=== PATIENT | female | born 1955 | race Caucasian/White ===

== ENCOUNTER → 2016-09-15 | Outpatient (CLI) | payer OTHER ==
[~2016-09-15] MED LIST: ASP325TEC PO; ASP81TEC PO; CETI10TA17 PO; ENAL20TA PO; FERR325T17 PO; GLIM2TAB PO; GLUC-113 PO; LEVO175T3 PO; LVT.025T PO; LVT.15T PO; MELO-195 PO; METO-272 PO; MTF500T PO; NITR0.4T12 SL; NTR.4SL SL; OMEP-10 PO; PRAS10TA6 PO; PRAV40TA PO; SIMV40TA2 PO; TIZA4TAB55 PO; TRAM50TA2 PO
[2016-09-15 15:32] LABS: CHOLESTEROL 226 MG/DL (< 200); DIRECT LDL 149 MG/DL (1-129); TRIGLYCERIDES 148 MG/DL (<150); VLDL CHOLESTEROL 30 MG/DL (5-40)
== END ==
LOC: LAB 12:15
PROVIDERS: ATTEND Internal Medicine Nephrology
DX: I25.10 Atherosclerotic heart disease of native coronary artery without angina pectoris (principal)
CPT/HCPCS: 36415; 80061

== ENCOUNTER 2016-10-10 08:46 | Outpatient (RCR) | payer OTHER | END 2016-12-16 | disposition home or self-care (01) | LOC: CARD 08:46 | PROVIDERS: ATTEND Internal Medicine Interventional Cardiology | DX: I48.91 Unspecified atrial fibrillation (principal); I47.1 Supraventricular tachycardia | CPT/HCPCS: 93270 ==

== ENCOUNTER 2016-10-24 08:37 | Outpatient (RCR) | payer OTHER ==
[2016-08-05 13:04] LABS: BASOPHILS % (AUTO) 1 % (0-10); EOSINOPHILS # (AUTO) 0.2 10^3/uL (0.0-0.3); EOSINOPHILS % (AUTO) 3 % (0-10); LYMPHOCYTES # (AUTO) 1.9 X 10^3 (1.0-4.0); LYMPHOCYTES % (AUTO) 38 % (12-44); MEAN CORPUSCULAR HEMOGLOBIN 26 PG (25-34); MEAN CORPUSCULAR HGB CONC 31 G/DL (32-36); MEAN CORPUSCULAR VOLUME 84 FL (80-99); MEAN PLATELET VOLUME 10.1 FL (7.4-10.4); MONOCYTES # (AUTO) 0.5 X 10^3 (0.0-1.0); MONOCYTES % (AUTO) 9 % (0-12); NEUTROPHILS # (AUTO) 2.5 X 10^3 (1.8-7.8); NEUTROPHILS % (AUTO) 49 % (42-75); PLATELET COUNT 182 10^3/uL (130-400); RED BLOOD COUNT 2.63 10^6/uL (4.35-5.85); RED CELL DISTRIBUTION WIDTH 14.4 % (10.0-14.5); WHITE BLOOD COUNT 5.1 10^3/uL (4.3-11.0)
--- OUTSIDE RECORDS SUMMARY | 2016-08-05 13:37 | XMS REPORT | Continuity of Care Document ---
Author Author [facility] Organization [facility] Address Unknown Phone Unavailable Care Team Providers Care Boiler Tube Reamer Name Role Phone WU DIOR MD PCP Insurance Providers Payer Name Policy Number Subscriber Name Relationship [facility] [id number] Deborah Fields 20 Self / Same As Patient Advance Directives Directive Response Recorded Date/Time Advance Directives No 03/24/14 7:15am Health Care Power of Physical Therapy Instructor No 03/24/14 7:15am Organ Donor Yes 03/24/14 7:15am Problems No problem information available. Medications Current Home Medications Medication Dose Units Route Directions Days/Qty Instructions Start Date Metformin Hcl (Glucophage) 500 Mg 1,000 Mg Oral Twice A Day With Meals TAKE 2 (500MG) TABLETS - DO NOT TAKE METFORMIN UNTIL THE MORNING OF 03-05-1412/22 Tramadol Hcl 50 Mg 50 Mg Oral Four Times Daily as needed for Pain Omeprazole 20 Mg 20 Mg Oral Daily@07 05/22/10 Nitroglycerin 0.4 Mg 0 Sublingual As Needed as needed for Chest Pain 1 TAB Q 5 MIN X 3 03/02/14 Metoprolol Succinate (Toprol Xl) 50 Mg 50 Mg Oral Twice A Day Ferrous Gluconate 325 Mg 325 Mg Oral Daily 03/02/14 Gluc 2KCL/Chondr/Caty Hy/Hy Ac 1 Each 1 Cap Oral Twice A Day Tizanidine Hcl 4 Mg 4 Mg Oral Bedtime 03/02/14 Glimepiride 2 Mg 2 Mg Oral Twice A Day 03/02/14 Levothyroxine Sodium 175 Mcg 175 Mcg Oral Daily TAKE WITH 25 DFY=490 MCG 03/02/14 Levothyroxine Sodium (Levothroid) 25 Mcg 25 Mcg Oral Daily TAKE WITH 175 TWL=353 MCG 03/02/14 Cetirizine Hcl (Zyrtec) 10 Mg 10 Mg Oral Daily 03/02/14 Past Home Medications Medication Directions Ordered Status Levothyroxine Sodium (Levothroid) 150 Mcg Tablet, 1 Each Oral Daily 05/21/10 Discontinued Meloxicam (Mobic) 15 Mg Tablet, 15 Mg Oral Daily 05/21/10 Discontinued Enalapril Maleate 20 Mg Tablet, 20 Mg Oral Daily 05/21/10 Discontinued Aspirin 325 Mg Tabec, 325 Mg Oral Daily 05/22/10 Discontinued Nitroglycerin 0.4 Mg Tab.subl, 0.4 Mg Sublingual As Needed 05/22/10 Discontinued Prasugrel Hydrochloride 10 Mg Tablet, 10 Mg Oral Daily 05/22/10 Discontinued Simvastatin 40 Mg Tablet, 80 Mg Oral Bedtime 05/22/10 Discontinued Aspirin 81 Mg Tabec, 81 Mg Oral Daily 03/02/14 Discontinued Pravastatin Sodium 40 Mg Tablet, 40 Mg Oral Daily 03/02/14 Discontinued Social History Social History Problem Response Recorded Date/Time Recent Foreign Travel N [place] 10/09/2015 4:28pm Hospital Discharge Instructions No hospital discharge instructions. Plan of Care Prescriptions See Medication Section Functional Status No functional status results. Allergies, Adverse Reactions, Alerts Allergen Type Severity Reaction Status Last Updated methotrexate ([id number]) Allergy Unknown Active 03/24/14 cefadroxil ([id number]) Allergy Mild Active 03/24/14 Immunizations No immunization records. Vital Signs No known vital signs results. Results Laboratory Results Test Name Result Units Flags Reference Collection Date/Time Result Date/ Time Comments White Blood Count 7.2 10^3/uL 4.3-11.0 11/27/2015 3:36pm 11/27/2015 3: 40pm Red Blood Count 3.49 10^6/uL L 4.35-5.85 11/27/2015 3:36pm 11/27/2015 3: 40pm Hemoglobin 10.0 G/DL L 11.5-16.0 11/27/2015 3:36pm 11/27/2015 3:40pm Hematocrit 31 % L 35-52 11/27/2015 3:36pm 11/27/2015 3:40pm Mean Corpuscular Volume 89 FL 80-99 11/27/2015 3:36pm 11/27/2015 3: 40pm Mean Corpuscular Hemoglobin 29 PG 25-34 11/27/2015 3:36pm 11/27/2015 3: 40pm Mean Corpuscular Hemoglobin Concent 32 G/DL 32-36 11/27/2015 3:36pm 3:40pm Red Cell Distribution Width 14.6 % H 10.0-14.5 11/27/2015 3:36pm 2015 3:40pm Platelet Count 195 10^3/uL 130-400 11/27/2015 3:36pm 11/27/2015 3:40pm Mean Platelet Volume 9.7 FL 7.4-10.4 11/27/2015 3:36pm 11/27/2015 3: 40pm Neutrophils (%) (Auto) 63 % 42-75 11/27/2015 3:36pm 11/27/2015 3:40pm Lymphocytes (%) (Auto) 24 % 12-44 11/27/2015 3:36pm 11/27/2015 3:40pm Monocytes (%) (Auto) 7 % 0-12 11/27/2015 3:36pm 11/27/2015 3:40pm Eosinophils (%) (Auto) 6 % 0-10 11/27/2015 3:36pm 11/27/2015 3:40pm Basophils (%) (Auto) 0 % 0-10 11/27/2015 3:36pm 11/27/2015 3:40pm Neutrophils # (Auto) 4.5 X 10^3 1.8-7.8 11/27/2015 3:36pm 11/27/2015 3: 40pm Lymphocytes # (Auto) 1.8 X 10^3 1.0-4.0 11/27/2015 3:36pm 11/27/2015 3: 40pm Monocytes # (Auto) 0.5 X 10^3 0.0-1.0 11/27/2015 3:36pm 11/27/2015 3: 40pm Eosinophils # (Auto) 0.4 10^3/uL H 0.0-0.3 11/27/2015 3:36pm 11/27/2015 3 :40pm Basophils # (Auto) 0.0 10^3/uL 0.0-0.1 11/27/2015 3:36pm 11/27/2015 3: 40pm Ferritin 157 ng/mL H 15-150 11/27/2015 3:36pm 11/28/2015 8:35am Test performed at [facility], CLIA# [id number] Procedures No known history of procedures. Encounters Encounter Location Arrival/Admit Date Discharge/Depart Date Attending Provider Discharged Recurring [facility] 11/27/15 3:28pm 11:59pm SHIREEN AGARWAL
[2016-08-05 13:46] LABS: ALBUMIN 3.5 G/DL (3.2-4.5); BILIRUBIN,TOTAL 0.4 MG/DL (0.1-1.0); CALCIUM 8.4 MG/DL (8.5-10.1); CREATININE SERUM 1.08 MG/DL (0.60-1.30); POTASSIUM 4.5 MMOL/L (3.6-5.0); TOTAL PROTEIN 6.8 G/DL (6.4-8.2)
[2016-08-05 14:26] LABS: THYROID STIMULATING HORMONE 1.66 UIU/ML (0.35-4.94)
[2016-09-15 10:36] LABS: BASOPHILS % (AUTO) 1 % (0-10); EOSINOPHILS # (AUTO) 0.5 10^3/uL (0.0-0.3); EOSINOPHILS % (AUTO) 9 % (0-10); LYMPHOCYTES # (AUTO) 1.8 X 10^3 (1.0-4.0); LYMPHOCYTES % (AUTO) 32 % (12-44); MEAN CORPUSCULAR HEMOGLOBIN 30 PG (25-34); MEAN CORPUSCULAR HGB CONC 33 G/DL (32-36); MEAN CORPUSCULAR VOLUME 90 FL (80-99); MEAN PLATELET VOLUME 9.4 FL (7.4-10.4); MONOCYTES # (AUTO) 0.6 X 10^3 (0.0-1.0); MONOCYTES % (AUTO) 10 % (0-12); NEUTROPHILS # (AUTO) 2.8 X 10^3 (1.8-7.8); NEUTROPHILS % (AUTO) 49 % (42-75); PLATELET COUNT 172 10^3/uL (130-400); RED BLOOD COUNT 3.28 10^6/uL (4.35-5.85); RED CELL DISTRIBUTION WIDTH 17.6 % (10.0-14.5); WHITE BLOOD COUNT 5.8 10^3/uL (4.3-11.0)
[~2016-10-24 08:37] MED LIST changes: +FERRIC CARBOXYMALTOSE (CANCER) 750 MG in NS (IVPB) CANCER CENTER 250 ML IV NR; +FERRIC CARBOXYMALTOSE (CANCER) 750 MG in NS (IVPB) CANCER CENTER 250 ML IV SCH; +NS (IVPB) CANCER CENTER 250 ML ONE; +NS IV 500 ML (CANCER CENTER) 500 ML ONE
[2016-10-24 08:57] LABS: BASOPHILS % (AUTO) 0 % (0-10); EOSINOPHILS # (AUTO) 0.6 10^3/uL (0.0-0.3); EOSINOPHILS % (AUTO) 9 % (0-10); LYMPHOCYTES # (AUTO) 1.8 X 10^3 (1.0-4.0); LYMPHOCYTES % (AUTO) 26 % (12-44); MEAN CORPUSCULAR HEMOGLOBIN 30 PG (25-34); MEAN CORPUSCULAR HGB CONC 34 G/DL (32-36); MEAN CORPUSCULAR VOLUME 90 FL (80-99); MONOCYTES # (AUTO) 0.6 X 10^3 (0.0-1.0); MONOCYTES % (AUTO) 8 % (0-12); NEUTROPHILS # (AUTO) 3.7 X 10^3 (1.8-7.8); NEUTROPHILS % (AUTO) 56 % (42-75); PLATELET COUNT 174 10^3/uL (130-400); RED BLOOD COUNT 3.41 10^6/uL (4.35-5.85); RED CELL DISTRIBUTION WIDTH 13.7 % (10.0-14.5); WHITE BLOOD COUNT 6.7 10^3/uL (4.3-11.0)
== END 2016-11-03 | disposition home or self-care (01) ==
LOC: ONC 08:37
PROVIDERS: ATTEND Internal Medicine Hematology & Oncology
DX: D50.9 Iron deficiency anemia, unspecified (principal); I25.10 Atherosclerotic heart disease of native coronary artery without angina pectoris; E03.9 Hypothyroidism, unspecified; I12.9 Hypertensive chronic kidney disease with stage 1 through stage 4 chronic kidney disease, or unspecified chronic kidney disease; N18.3 Chronic kidney disease, stage 3 (moderate); E11.22 Type 2 diabetes mellitus with diabetic chronic kidney disease; I48.91 Unspecified atrial fibrillation; Z79.899 Other long term (current) drug therapy
CPT/HCPCS: 36415; 36430; 80053; 82728; 84443; 85025; 86850; 86900; 86901; 86920; 96365; 99213

== ENCOUNTER → 2016-10-24 | Outpatient (CLI) | payer OTHER ==
[2016-10-24 09:27] LABS: CHOLESTEROL 214 MG/DL (< 200); DIRECT LDL 129 MG/DL (1-129); TRIGLYCERIDES 173 MG/DL (<150); VLDL CHOLESTEROL 35 MG/DL (5-40)
== END ==
LOC: LAB 08:41
PROVIDERS: ATTEND Internal Medicine Nephrology
DX: I25.10 Atherosclerotic heart disease of native coronary artery without angina pectoris (principal)
CPT/HCPCS: 36415; 80061

== ENCOUNTER 2016-12-31 11:10 | Outpatient (CLI) | payer OTHER ==
[~2016-12-31 11:10] MED LIST changes: -APIX5TAB PO; -EVOL140S SQ; -EZET10TA5 PO; -LEVO150T6 PO; -METO-274 PO; -PANT40TA2 PO; -SUCR1TAB36 PO
[2016-12-31 11:27] LABS: MEAN PLATELET VOLUME 9.3 FL (7.4-10.4); RED BLOOD COUNT 2.67 10^6/uL (4.35-5.85); WHITE BLOOD COUNT 5.7 10^3/uL (4.3-11.0)
[2017-01-01] MEDS ORDERED: APIX5TAB PO (09:55)
[2017-01-01] MEDS ORDERED: METO-274 PO (09:55)
[2017-01-01] MEDS ORDERED: EVOL140S SQ (09:55)
[2017-01-01] MEDS ORDERED: EZET10TA5 PO (09:55)
[2017-01-01] MEDS ORDERED: LEVO150T6 PO (09:55)
[2017-01-02] MEDS ORDERED: SUCR1TAB36 PO (08:19)
[2017-01-02] MEDS ORDERED: PANT40TA2 PO (08:19)
== END 2017-01-01 10:01 ==
LOC: LAB 11:10
PROVIDERS: ATTEND Nurse Practitioner
DX: D64.9 Anemia, unspecified (principal)
CPT/HCPCS: 36415; 85027

== ENCOUNTER → 2016-12-31 | Outpatient (CLI) | payer OTHER ==
[~2016-12-31] VITALS: Ht 162.6 cm; Wt 123.4 kg
[~2016-12-31] MED LIST changes: +APIX5TAB PO; +EVOL140S SQ; +EZET10TA5 PO; -FERRIC CARBOXYMALTOSE (CANCER) 750 MG in NS (IVPB) CANCER CENTER 250 ML IV NR; -FERRIC CARBOXYMALTOSE (CANCER) 750 MG in NS (IVPB) CANCER CENTER 250 ML IV SCH; +LEVO150T6 PO; +METO-274 PO; -NS (IVPB) CANCER CENTER 250 ML ONE; -NS IV 500 ML (CANCER CENTER) 500 ML ONE; +PANT40TA2 PO; +SUCR1TAB36 PO
== END ==
LOC: PREOP 12:53
PROVIDERS: ATTEND Surgery
DX: Z01.818 Encounter for other preprocedural examination (principal); R19.5 Other fecal abnormalities; D50.9 Iron deficiency anemia, unspecified; Z80.0 Family history of malignant neoplasm of digestive organs

== ENCOUNTER 2017-01-02 06:29 | Day surgery (SDC) | payer OTHER ==
[~2017-01-02] VITALS: Ht 162.6 cm; Wt 123.4 kg
[~2017-01-02 06:29] MED LIST changes: +APIX5TAB PO; +EVOL140S SQ; +EZET10TA5 PO; +LEVO150T6 PO; +METO-274 PO
[2017-01-02] MEDS ORDERED: LACTATED RINGERS 1,000 ML IV STA (06:43)
[2017-01-02] MEDS ORDERED: HURRICAINE EXT TUBE (BENZOCAINE) XX PRN (06:45)
[2017-01-02 07:08] VITALS: BP 147/72
[2017-01-02] MEDS ORDERED: PROPOFOL INJECTION 50 ML IV ONE (07:19)
[2017-01-02] MEDS ORDERED: MIDAZOLAM 2 MG/2 ML (VERSED) VIAL ONE (07:20)
--- NOTE | 2017-01-02 07:22 | Progress Note-Pre Operative ---
Pre-Operative Progress Note H&P Reviewed The H&P was reviewed, patient examined and no changes noted. Date Seen by Provider: Jan 02, 2017 Time Seen by Provider: : Date H&P Reviewed: Jan 02, 2017 Time H&P Reviewed: : Pre-Operative Diagnosis: occult + stool, iron def anemia, family history colon cancer SABRINA ROSSI DO Jan 02, 2017 7:21 am
[2017-01-02 08:00] VITALS: BP 157/73
--- NOTE | 2017-01-02 08:15 | Progress Note-Post Operative ---
Post-Operative Progess Note Surgeon (s)/Loom Fixer Supervisor (s) Surgeon SABRINA ROSSI DO Loom Fixer Supervisor: na Pre-Operative Diagnosis occult + stool, iron def anemia, family history colon cancer Post-Operative Diagnosis gastritis, hiatal hernia, hemorrhoids Procedure & Operative Findings Date of Procedure 01/02/17 Procedure Performed/Findings egd c biopsy and colonoscopy Anesthesia Type per escalator attendant Estimated Blood Loss Estimated blood loss (mL): none Specimens/Packing Specimens Removed antrum SABRINA ROSSI DO Jan 02, 2017 08:15
[2017-01-02] MEDS ORDERED: PANT40TA2 PO (08:19)
[2017-01-02] MEDS ORDERED: SUCR1TAB36 PO (08:19)
--- NOTE | 2017-01-02 08:20 | Discharge Inst-Simple/Standard ---
Discharge Inst-Standard Discharge Medications New, Converted or Re-Newed RX: Transmitted to Pharmacy Patient Instructions/Follow Up Plan of Care/Instructions/FU: Follow up with Dr. Holt in 2-3 weeks Take medication as directed. Activity as Tolerated: Yes Discharge Diet: No Restrictions MACIEL WELCH APRN Jan 02, 2017 08:20
[2017-01-02 08:35] VITALS: BP 147/72
[2017-01-02 11:07] VITALS: BP 147/72
--- NOTE | 2017-01-02 16:51 | OPERATIVE REPORT ---
PROCEDURE PHYSICIAN: SABRINA ROSSI DATE OF PROCEDURE: 01/02/2017 PREOPERATIVE DIAGNOSIS: 1. Occult positive stool. 2. Iron deficiency anemia. 3. Family history of colon cancer. POSTOPERATIVE DIAGNOSES: 1. Gastritis. 2. Hiatal hernia. 3. Hemorrhoids. PROCEDURE: 1. EGD with biopsy of the antrum. 2. Colonoscopy. SURGEON: Yanet. ANESTHESIA: Per HOIST WORKER. ESTIMATED BLOOD LOSS: None. COMPLICATIONS: None. SPECIMEN: Antrum. INDICATIONS: The patient is a 61-year-old female with occult positive stool and iron deficiency anemia. She is family history of colon cancer. She understands the risks and benefits of the procedure and wished to proceed with the procedures. Consent was signed on the chart. PROCEDURE: The patient was taken to endoscopy suite, placed in left lateral recumbent position. Timeout was performed. The scope was inserted into the mouth down the esophagus, stomach and into the duodenum without difficulty. There were no polyps, masses or ulcerations within the duodenum. The scope was then slowly retracted back into the stomach where it was further insufflated. There were erythematous changes consistent with gastritis in the antrum. Biopsy of the antrum was obtained. Also some small polyps benign appearance throughout the stomach and areas of inflammation as well. The scope was retroflexed noting a small hiatal hernia. The scope was returned its normal position and slowly withdrawn back into the distal esophagus which had no erythematous changes, polyps, masses, or ulcerations. The scope was slowly retracted until completely removed noting no other pathology. COLONOSCOPY: Digital rectal exam was performed. There were no palpable polyps, masses or ulcerations. The scope was inserted into the rectum, advanced all of the way to the cecum with minimal difficulty. Prep was adequate. The scope was then slowly retracted back. There were no polyps, masses or ulcerations within the cecum, ascending, transverse, descending and sigmoid colon. Within the rectum, the scope was also retroflexed noting some hemorrhoidal disease. The scope was returned to its normal position and slowly withdrawn until completely removed, noting no other pathology. The patient tolerated the procedure well without any complications. She was taken to recovery room in stable condition. RECOMMENDATIONS: The patient was started on Protonix 40 mg daily and Carafate 1 gram 4 times a day. She will follow-up in the office in about 2 to 3 weeks to discuss pathology results and see how she is doing at that time. Job ID: [id number] Dictated Date: 01/02/2017 08:28:42 Softlines Supervisor Date: 01/02/2017 16:41:40 / yg
== END 2017-01-02 08:45 | disposition home or self-care (01) ==
LOC: ENDO 06:29
PROVIDERS: ATTEND Surgery
DX: R19.5 Other fecal abnormalities (principal); D50.9 Iron deficiency anemia, unspecified; K29.70 Gastritis, unspecified, without bleeding; K44.9 Diaphragmatic hernia without obstruction or gangrene; K64.9 Unspecified hemorrhoids; Z80.0 Family history of malignant neoplasm of digestive organs; I48.91 Unspecified atrial fibrillation; I25.10 Atherosclerotic heart disease of native coronary artery without angina pectoris; I12.9 Hypertensive chronic kidney disease with stage 1 through stage 4 chronic kidney disease, or unspecified chronic kidney disease; E11.22 Type 2 diabetes mellitus with diabetic chronic kidney disease; N18.3 Chronic kidney disease, stage 3 (moderate); E78.5 Hyperlipidemia, unspecified; E03.9 Hypothyroidism, unspecified; I47.1 Supraventricular tachycardia; Z79.01 Long term (current) use of anticoagulants; Z79.84 Long term (current) use of oral hypoglycemic drugs; Z79.899 Other long term (current) drug therapy; Z95.5 Presence of coronary angioplasty implant and graft
CPT/HCPCS: 82962

== ENCOUNTER 2017-01-29 08:47 | Inpatient (IN) | payer OTHER ==
[2017-01-29] VITALS (18 sets, daily range): BP systolic 110–160; BP diastolic 46–88
[~2017-01-29] VITALS: Ht 162.6 cm; Wt 131.1 kg
[~2017-01-29 08:47] MED LIST changes: +PANT40TA2 PO; +SUCR1TAB36 PO
[2017-01-29] MEDS ORDERED: DILTIAZEM 25 MG/5 ML INJ (CARDIZEM) VIAL ONE (08:52)
[2017-01-29] MEDS ORDERED: NS (IVPB) 100 ML ONE (09:00)
[2017-01-29] MEDS ORDERED: DILTIAZEM 25 MG/5 ML INJ (CARDIZEM) VIAL IVP ONE (09:00)
[2017-01-29] MEDS ORDERED: DILTIAZEM 100 MG/VIAL (CARDIZEM) ADD-VANTAGE IV ONE (09:00)
[2017-01-29 09:02] LABS: BASOPHILS % (AUTO) 0 % (0-10); EOSINOPHILS # (AUTO) 0.3 10^3/uL (0.0-0.3); EOSINOPHILS % (AUTO) 4 % (0-10); LYMPHOCYTES # (AUTO) 1.2 X 10^3 (1.0-4.0); LYMPHOCYTES % (AUTO) 16 % (12-44); MEAN CORPUSCULAR HEMOGLOBIN 30 PG (25-34); MEAN CORPUSCULAR HGB CONC 31 G/DL (32-36); MEAN CORPUSCULAR VOLUME 96 FL (80-99); MEAN PLATELET VOLUME 10.2 FL (7.4-10.4); MONOCYTES # (AUTO) 0.7 X 10^3 (0.0-1.0); MONOCYTES % (AUTO) 9 % (0-12); NEUTROPHILS # (AUTO) 5.1 X 10^3 (1.8-7.8); NEUTROPHILS % (AUTO) 70 % (42-75); PLATELET COUNT 162 10^3/uL (130-400); RED BLOOD COUNT 2.59 10^6/uL (4.35-5.85); RED CELL DISTRIBUTION WIDTH 14.9 % (10.0-14.5); WHITE BLOOD COUNT 7.3 10^3/uL (4.3-11.0)
--- NOTE | 2017-01-29 09:12 | ED Cardiac General ---
History of Present Illness General Stated Complaint: CP Source: patient, EMS Exam Limitations: no limitations History of Present Illness Time seen by provider: 09:06 Initial Comments The patient is a 61-year-old white female known to me. She is known to have atrial fibrillation. She reports that beginning yesterday afternoon she had a sense of breathlessness. She was unable to sleep through the night and complained of chest pain with radiation to the arms. The EMS found her to be extremely tachycardic. The rate to reach the 200s while here. She reports that she had not been aware of any racing prior to this contact. Timing/Duration: 24 hours Location: substernal Activities at Onset: none Prior CP/Workup: no prior chest pain Modifying Factors: improves with exercise (increased) Allergies and Home Medications Allergies Coded Allergies: Rkpsulq-Bsy-Fxe Reductase Inhibitor (Verified Allergy, Intermediate, GI UPSET, N/V, 01/01/17) cefadroxil (Unverified Allergy, Mild, 01/01/17) Home Medications Cetirizine Hcl 10 Mg Tablet, 10 MG PO DAILY, (Reported) Evolocumab 140 Mg/1 Ml Syringe, 140 MG SQ Q 2 WEEKS, (Reported) Ezetimibe 10 Mg Tablet, 10 MG PO DAILY, (Reported) Glimepiride 2 Mg Tablet, 2 MG PO BID, (Reported) Gluc 2KCL/Chondr/Caty Hy/Hy Ac 1 Each Capsule, 1 CAP PO BID, (Reported) Levothyroxine Sodium 150 Mcg Tablet, 150 MCG PO DAILY, (Reported) Metformin Hcl 500 Mg Tablet, 1,000 MG PO BID WITH MEALS, (Reported) TAKE 2 (500MG) TABLETS - DO NOT TAKE METFORMIN UNTIL THE MORNING OF 03-05-14 Metoprolol Succinate 50 Mg Tab.sr.24h, 50 MG PO DAILY, (Reported) Metoprolol Succinate 100 Mg Tab.er.24h, 100 MG PO HS, (Reported) Nitroglycerin 0.4 Mg Tab, 0 SL PRN PRN for CHEST PAIN, (Reported) 1 TAB Q 5 MIN X 3 Omeprazole 20 Mg Capsule.dr, 20 MG PO DAILY@07, (Reported) Pantoprazole Sodium 40 Mg Tablet.dr, 40 MG PO DAILY, #60 Ref 3 Prescribed by: MACIEL CHIN [facility] on 01/02/17 0819 Sucralfate 1 Gm Tablet, 1 GM PO QID, #120 Prescribed by: MACIEL EASON on 01/02/17 0819 Tramadol Hcl 50 Mg Tab, 50 MG PO QID PRN for PAIN, (Reported) Review of Systems Constitutional: see HPI EENTM: No Symptoms Reported Respiratory: Shortness of Air Cardiovascular: See HPI, Chest Pain Gastrointestinal: No Symptoms Reported Genitourinary: No Symptoms Reported Musculoskeletal: no symptoms reported Skin: no symptoms reported Psychiatric/Neurological: No Symptoms Reported Endocrine: No Symptoms Reported Hematologic/Lymphatic: No Symptoms Reported Past Pprljiy-Ptfhzz-Bukoeo Hx Patient Social History Recent Hopitalizations: No Immunizations Up To Date Date of Pneumonia Vaccine: Jun 23, 2016 Date of Influenza Vaccine: Mar 24, 2016 Seasonal Allergies Seasonal Allergies: Yes Surgeries HX Surgeries: Yes (L ANKLE REPAIR, L KNEE SCOPE X2) Surgeries: Adenoidectomy, Tonsillectomy, Tubal Ligation Respiratory Hx Respiratory Disorders: No Cardiovascular Hx Cardiac Disorders: Yes (CHF, STENT X1) Cardiac Disorders: Atrial Fibrillation, Coronary Artery Disease, High Cholesterol, Hypertension Neurological Hx Neurological Disorders: No Reproductive System Hx Reproductive Disorders: No Sexually Transmitted Disease: No HIV/AIDS: No Female Reproductive Disorders: Denies Genitourinary Hx Genitourinary Disorders: No Gastrointestinal Hx Gastrointestinal Disorders: Yes Gastrointestinal Disorders: Gastroesophageal Reflux Musculoskeletal Hx Musculoskeletal Disorders: Yes Endocrine Hx Endocrine Disorders: Yes HEENT HX ENT Disorders: Yes (READING GLASSES, UPPER DENTURE) Loss of Vision: Bilateral Hearing Impairment: Denies Cancer Hx Cancer: No Psychosocial Hx Psychiatric Problems: No Integumentary HX Skin/Integumentary Disorder: No Blood Transfusions Hx Blood Disorders: Yes (ANEMIA) Adverse Reaction to a Blood Tr: No (HAS HAD BLOOD WITH NO REACTION) Physical Exam Vital Signs Vital Sign - Last 12Hours Capillary Refill : General Appearance: Anxious, Moderate Distress HEENT: Normal ENT Inspection Neck: Normal Inspection Respiratory: Chest Non Tender, Lungs Clear, Normal Breath Sounds, No Accessory Muscle Use, No Respiratory Distress Cardiovascular: Tachycardia Gastrointestinal: Normal Bowel Sounds, No Organomegaly, No Pulsatile Mass, Non Tender Extremity: Normal Capillary Refill, Normal Inspection, Normal Range of Motion, Non Tender, No Calf Tenderness, No Pedal Edema, No Calf Tenderness, No Inflammation, No Pedal Edema, No Pelvis Stable, No Slow Capillary Refill, No Swelling, No Other Neurologic/Psychiatric: Alert Skin: Normal Color, Warm/Dry Progress/Results/Core Measures Results/Orders Lab Results Laboratory Tests Test 01/29/17 08:52 Range/Units White Blood Count 7.3 4.3-11.0 10^3/uL Red Blood Count 2.59 L 4.35-5.85 10^6/uL Hemoglobin 7.7 L 11.5-16.0 G/DL Hematocrit 25 L 35-52 % Mean Corpuscular Volume 96 80-99 FL Mean Corpuscular Hemoglobin 30 25-34 PG Mean Corpuscular Hemoglobin Concent 31 L 32-36 G/DL Red Cell Distribution Width 14.9 H 10.0-14.5 % Platelet Count 162 130-400 10^3/uL Mean Platelet Volume 10.2 7.4-10.4 FL Neutrophils (%) (Auto) 70 42-75 % Lymphocytes (%) (Auto) 16 12-44 % Monocytes (%) (Auto) 9 0-12 % Eosinophils (%) (Auto) 4 0-10 % Basophils (%) (Auto) 0 0-10 % Neutrophils # (Auto) 5.1 1.8-7.8 X 10^3 Lymphocytes # (Auto) 1.2 1.0-4.0 X 10^3 Monocytes # (Auto) 0.7 0.0-1.0 X 10^3 Eosinophils # (Auto) 0.3 0.0-0.3 10^3/uL Basophils # (Auto) 0.0 0.0-0.1 10^3/uL Sodium Level 136 135-145 MMOL/L Potassium Level 4.6 3.6-5.0 MMOL/L Chloride Level 101 98-107 MMOL/L Carbon Dioxide Level 22 21-32 MMOL/L Anion Gap 13 5-14 MMOL/L Blood Urea Nitrogen 13 7-18 MG/DL Creatinine 1.20 0.60-1.30 MG/DL Estimat Glomerular Filtration Rate 46 BUN/Creatinine Ratio 11 Glucose Level 450 *H 70-105 MG/DL Calcium Level 9.2 8.5-10.1 MG/DL Total Bilirubin 0.6 0.1-1.0 MG/DL Aspartate Amino Transf (AST/SGOT) 42 H 5-34 U/L Alanine Aminotransferase (ALT/SGPT) 21 0-55 U/L Alkaline Phosphatase 56 40-136 U/L Troponin I < 0.30 <0.30 NG/ML Total Protein 6.8 6.4-8.2 GM/DL Albumin 3.6 3.2-4.5 GM/DL My Orders Orders - MODESTO BALDERRAMA MD Ekg Tracing (01/29/17 08:50) Cbc With Automated Diff (01/29/17 08:50) Comprehensive Metabolic Panel (01/29/17 08:50) Troponin I (01/29/17 08:50) Ua Culture If Indicated (01/29/17 08:50) Chest 1 View, Ap/Pa Only (01/29/17 08:50) Diltiazem Injection (Cardizem Injection) (01/29/17 09:00) Diltiazem Injection (Cardizem Injection) (01/29/17 08:52) Diltiazem Drip (Cardizem Drip) (01/29/17 09:00) Ns (Ivpb) (Sodium Chloride 0.9% Ivpb Bag (01/29/17 09:00) Medications Given in ED Current Medications Medications Dose Ordered Sig/Roberth Route Start Time Stop Time Status Last Admin Dose Admin Diltiazem HCl 20 mg ONCE ONCE IVP 01/29/17 09:00 01/29/17 09:01 DC 01/29/17 08:58 20 MG Diltiazem HCl 100 mg STK-MED ONCE IV 01/29/17 09:00 01/29/17 09:06 DC 01/29/17 09:10 100 MG Sodium Chloride 100 ml @ ud STK-MED ONCE .ROUTE 01/29/17 09:00 01/29/17 09:07 DC 01/29/17 09:10 10 MLS/HR Vital Signs/I&O Vital Sign - Last 12Hours 01/29/17 01/29/17 01/29/17 08:48 08:48 09:10 Temp 97.1 Pulse 200 Resp 18 B/P (MAP) 124/69 106/55 Pulse Ox 100 O2 Delivery Nasal Cannula Nasal Cannula O2 Flow Rate 2.00 2.0 Departure Communication Progress Notes EKG showed a tachycardia with a rate of 180. Given her past history of atrial fibrillation this was considered to be A. fib with RVR. The patient was given Cardizem 20 mg IV and rather promptly dropped to an irregular rhythm with a rate of 120 or less and relief of her chest pain. A Cardizem drip was then started. [address] Torres from [facility]. Patient will be admitted to ICU on a Cardizem drip Impression Impression: Primary Impression: atrial fibrillation with rapid ventricular response Disposition: ADMITTED INPATIENT Condition: Improved Departure-Patient Inst. Referrals: JAMES TORRES MD (PCP) Primary Care Physician CHICHI RIVAS (Family) Primary Care Physician MODESTO BALDERRAMA MD Jan 29, 2017 09:12
--- NOTE | 2017-01-29 09:20 | Diagnostic Imaging Report ---
INDICATION: Chest pain. COMPARISON: 05/21/2010. FINDINGS: The lungs are free of acute infiltrate. The heart size is within normal limits. There is no vascular congestion. No edema, pneumonia, effusion or pneumothorax. IMPRESSION: No acute appearing abnormality. Dictated by: Dictated on workstation # [id number]
[2017-01-29 09:24] LABS: ALANINE AMINOTRANSFERASE 21 U/L (0-55); ALBUMIN 3.6 GM/DL (3.2-4.5); ANION GAP 13 MMOL/L (5-14); ASPARTATE AMINO TRANSFERASE 42 U/L (5-34); BILIRUBIN,TOTAL 0.6 MG/DL (0.1-1.0); BLOOD UREA NITROGEN 13 MG/DL (7-18); BUN/CREATININE RATIO 11; CALCIUM 9.2 MG/DL (8.5-10.1); CARBON DIOXIDE 22 MMOL/L (21-32); CHLORIDE 101 MMOL/L (98-107); GFR ESTIMATED 46; POTASSIUM 4.6 MMOL/L (3.6-5.0); SODIUM 136 MMOL/L (135-145); TOTAL PROTEIN 6.8 GM/DL (6.4-8.2)
[2017-01-29 09:31] LABS: GLUCOSE 450 MG/DL (70-105)
[2017-01-29 09:34] LABS: TROPONIN I < 0.30 NG/ML (<0.30)
--- NOTE | 2017-01-29 10:28 | Consultation-Cardiology ---
HPI-Cardiology Cardiology Consultation: Date of Consultation 01/29/17 Date of Admission Attending Physician Carla Wilson MD Admitting Physician Carla Wilson MD Consulting Physician ALEXANDRO MEJÍA COR-Papdlx-Sxojws Hx Patient Social History Alcohol Use: Denies Use Recreational Drug Use: No Smoking Status: Former Smoker Recent Foreign Travel: No Recent Infectious Disease Expo: No Immunizations Up To Date Date of Pneumonia Vaccine: Jun 23, 2016 Date of Influenza Vaccine: Mar 24, 2016 Past Medical History PMH As described under Assessment. Allergies and Home Medications Allergies Coded Allergies: Wzywsfu-Suh-Fqe Reductase Inhibitor (Verified Allergy, Intermediate, GI UPSET, N/V, 01/01/17) cefadroxil (Unverified Allergy, Mild, 01/01/17) Home Medications Cetirizine Hcl 10 Mg Tablet, 10 MG PO DAILY, (Reported) Evolocumab 140 Mg/1 Ml Syringe, 140 MG SQ Q 2 WEEKS, (Reported) Ezetimibe 10 Mg Tablet, 10 MG PO DAILY, (Reported) Glimepiride 2 Mg Tablet, 2 MG PO BID, (Reported) Gluc 2KCL/Chondr/Caty Hy/Hy Ac 1 Each Capsule, 1 CAP PO BID, (Reported) Levothyroxine Sodium 150 Mcg Tablet, 150 MCG PO DAILY, (Reported) Metformin Hcl 500 Mg Tablet, 1,000 MG PO BID WITH MEALS, (Reported) TAKE 2 (500MG) TABLETS - DO NOT TAKE METFORMIN UNTIL THE MORNING OF 03-05-14 Metoprolol Succinate 50 Mg Tab.sr.24h, 50 MG PO DAILY, (Reported) Metoprolol Succinate 100 Mg Tab.er.24h, 100 MG PO HS, (Reported) Nitroglycerin 0.4 Mg Tab, 0 SL PRN PRN for CHEST PAIN, (Reported) 1 TAB Q 5 MIN X 3 Omeprazole 20 Mg Capsule.dr, 20 MG PO DAILY@07, (Reported) Pantoprazole Sodium 40 Mg Tablet.dr, 40 MG PO DAILY, #60 Ref 3 Prescribed by: MACIEL EASON on 01/02/17 0819 Sucralfate 1 Gm Tablet, 1 GM PO QID, #120 Prescribed by: MACIEL EASON on 01/02/17 0819 Tramadol Hcl 50 Mg Tab, 50 MG PO QID PRN for PAIN, (Reported) Physical Exam-Cardiology Physical Exam Vital Signs/I&O Vital Sign - Last 12Hours 01/29/17 01/29/17 01/29/17 01/29/17 08:48 08:48 09:10 10:30 Temp 97.1 Pulse 200 118 Resp 18 18 B/P (MAP) 124/69 106/55 Pulse Ox 100 97 O2 Delivery Nasal Cannula Nasal Cannula Nasal Cannula O2 Flow Rate 2.00 2.0 2.00 Capillary Refill : Less Than 3 Seconds Data Review Labs Laboratory Tests 01/29/17 08:52: White Blood Count 7.3, Red Blood Count 2.59L, Hemoglobin 7.7L, Hematocrit 25L, Mean Corpuscular Volume 96, Mean Corpuscular Hemoglobin 30, Mean Corpuscular Hemoglobin Concent 31L, Red Cell Distribution Width 14.9H, Platelet Count 162, Mean Platelet Volume 10.2, Neutrophils (%) (Auto) 70, Lymphocytes (%) (Auto) 16 , Monocytes (%) (Auto) 9, Eosinophils (%) (Auto) 4, Basophils (%) (Auto) 0, Neutrophils # (Auto) 5.1, Lymphocytes # (Auto) 1.2, Monocytes # (Auto) 0.7, Eosinophils # (Auto) 0.3, Basophils # (Auto) 0.0, Sodium Level 136, Potassium Level 4.6, Chloride Level 101, Carbon Dioxide Level 22, Anion Gap 13, Blood Urea Nitrogen 13, Creatinine 1.20, Estimat Glomerular Filtration Rate 46, BUN/ Creatinine Ratio 11, Glucose Level 450*H, Calcium Level 9.2, Total Bilirubin 0.6 , Aspartate Amino Transf (AST/SGOT) 42H, Alanine Aminotransferase (ALT/SGPT) 21 , Alkaline Phosphatase 56, Troponin I < 0.30, Total Protein 6.8, Albumin 3.6 A/P-Cardiology Assessment/Admission Diagnosis A-fib with RVR - Cardizem gtt CAD with h/o prox RCA stenting with Promus 2.5 x 28 mm in May [address] Garza. Cardiac cath of 03/02/14 showed diffuse mod, nonobstructive disease involving all cors. LVEF was 65%. LVEDP was 25 mmHg, indicating diastolic dysfunction of LV Iron deficiency anemia - receiving iron infusions- management per oncology/ hematology services One documented episode of a fib in 2009 with no subsequent documented recurrence. Holter of 02/07/14 showed NSR with SVT (not afib) runs of upto 10 beats in length with rates [id number] bpm. There were frequent PVCS. There was no VT or any distinct evidence of A fib Previously on OAC with Eliquis Hypertension Hypothyroidism - thyroid replacement tx Elevated BMI of approx 48 Anemia of undetermined etiology. EGD and colonoscopy of December [address] Holt showed hiatal hernia, gastritis and hemorrhoids DM II Chronic psoriasis Hyperlipidemia - intolerant to all statins d/t n/v and muscle aches - currently taking Repatha Chronic bilat leg swelling, likely due to venous insuff. L leg chronically swells more (following remote ankle surgery) Clinical Quality Measures AMI/AHF: ASA po Prior to arrival: Yes ALEXANDRO VANCE Jan 29, 2017 10:28
[2017-01-29] MEDS ORDERED: CATHETER FLUSH 10 ML SYR IV PRN (11:15)
[2017-01-29] MEDS ORDERED: inSUlin (REGULAR) HUMAN 1 UNIT/0.01 ML (CHARGE PER UNIT) SC NR (12:00)
[2017-01-29] MEDS: inSUlin (REGULAR) HUMAN 1 UNIT/0.01 ML (CHARGE PER UNIT) SC SCH ×3 (12:28→20:46)
--- NOTE | 2017-01-29 12:52 | Consultation-Cardiology ---
HPI-Cardiology Cardiology Consultation Date of Consultation 01/29/17 Date of Admission Time Seen by Provider: 12:48 Indication: chest pain and palpitation HPI 61 years old lady with history of coronary artery disease, history of atrial fibrillation and chronic anemia. Has been seen by Dr. Jorge and Dr. Haywood. Was in her usual state of health until yesterday evening when she started having palpitation and felt her heart racing, started having chest pain dull in nature in the retrosternal area radiating to the left arm and back came into the emergency room and noted to be in atrial fibrillation with rapid ventricular response. Currently feeling better from the chest pain are, still having mild palpitation, still tachycardic. Borderline hypotensive. Reporting improvement in the chest pain. Having history of pedal edema which has been persistent, no syncope or near syncopal episodes no claudications. Home Medications & Allergies Allergies: Coded Allergies: Bogxhvv-Vjh-Upd Reductase Inhibitor (Verified Allergy, Intermediate, GI UPSET, N/V, 01/01/17) cefadroxil (Unverified Allergy, Mild, 01/01/17) Home Medication List Reviewed: Yes MXB-Alrlva-Lretji Hx Patient Social History Marital Status: Employed/Student: employed Alcohol Use: Denies Use Recreational Drug Use: No Smoking Status: Former Smoker Recent Foreign Travel: No Recent Infectious Disease Expo: No Recent Hopitalizations: No Immunizations Up To Date Date of Pneumonia Vaccine: Jun 23, 2016 Date of Influenza Vaccine: Mar 24, 2016 Past Medical History past medical history as discussed below Family Medical History Family Medical Hx Strong family history of heart disease, coronary artery disease and hypertension Constitutional: see HPI, malaise, weakness EENTM: see HPI, no symptoms reported Respiratory: see HPI, No cough, dyspnea on exertion, No hemoptysis, No orthopnea, No phlegm, No short of breath, No stridor, No wheezing, No other Cardiovascular: see HPI, chest pain, edema, No Hx of Intervention, palpitations , No syncope, No vascular heart diseas, No other Gastrointestinal: no symptoms reported, see HPI Genitourinary: no symptoms reported, see HPI Musculoskeletal: no symptoms reported, see HPI Skin: see HPI Psychiatric/Neurological: No Symptoms Reported, See HPI Reviewed Test Results Reviewed Test Results Lab Laboratory Tests Test 01/29/17 08:52 Range/Units White Blood Count 7.3 4.3-11.0 10^3/uL Red Blood Count 2.59 L 4.35-5.85 10^6/uL Hemoglobin 7.7 L 11.5-16.0 G/DL Hematocrit 25 L 35-52 % Mean Corpuscular Volume 96 80-99 FL Mean Corpuscular Hemoglobin 30 25-34 PG Mean Corpuscular Hemoglobin Concent 31 L 32-36 G/DL Red Cell Distribution Width 14.9 H 10.0-14.5 % Platelet Count 162 130-400 10^3/uL Mean Platelet Volume 10.2 7.4-10.4 FL Neutrophils (%) (Auto) 70 42-75 % Lymphocytes (%) (Auto) 16 12-44 % Monocytes (%) (Auto) 9 0-12 % Eosinophils (%) (Auto) 4 0-10 % Basophils (%) (Auto) 0 0-10 % Neutrophils # (Auto) 5.1 1.8-7.8 X 10^3 Lymphocytes # (Auto) 1.2 1.0-4.0 X 10^3 Monocytes # (Auto) 0.7 0.0-1.0 X 10^3 Eosinophils # (Auto) 0.3 0.0-0.3 10^3/uL Basophils # (Auto) 0.0 0.0-0.1 10^3/uL Sodium Level 136 135-145 MMOL/L Potassium Level 4.6 3.6-5.0 MMOL/L Chloride Level 101 98-107 MMOL/L Carbon Dioxide Level 22 21-32 MMOL/L Anion Gap 13 5-14 MMOL/L Blood Urea Nitrogen 13 7-18 MG/DL Creatinine 1.20 0.60-1.30 MG/DL Estimat Glomerular Filtration Rate 46 BUN/Creatinine Ratio 11 Glucose Level 450 *H 70-105 MG/DL Calcium Level 9.2 8.5-10.1 MG/DL Total Bilirubin 0.6 0.1-1.0 MG/DL Aspartate Amino Transf (AST/SGOT) 42 H 5-34 U/L Alanine Aminotransferase (ALT/SGPT) 21 0-55 U/L Alkaline Phosphatase 56 40-136 U/L Troponin I < 0.30 <0.30 NG/ML Total Protein 6.8 6.4-8.2 GM/DL Albumin 3.6 3.2-4.5 GM/DL Thyroid Stimulating Hormone (TSH) 6.61 H 0.35-4.94 UIU/ML Physical Exam Vital Signs Vital Sign - Last 12Hours Capillary Refill : Less Than 3 Seconds General Appearance: No Apparent Distress, WD/WN Eyes: Bilateral Eye Normal Inspection, Bilateral Eye PERRL, Bilateral Eye EOMI HEENT: PERRL/EOMI, TMs Normal, Normal ENT Inspection, Pharynx Normal Neck: Full Range of Motion, Normal Inspection, Non Tender, Supple, Carotid Bruit Respiratory: Chest Non Tender, Lungs Clear, Normal Breath Sounds, No Accessory Muscle Use, No Respiratory Distress Cardiovascular: No Edema, No Gallop, No JVD, No Murmur, Normal Peripheral Pulses, Irregularly Irregular, Tachycardia Gastrointestinal: Normal Bowel Sounds, No Organomegaly, No Pulsatile Mass, Non Tender, Soft Back: Normal Inspection, No CVA Tenderness, No Vertebral Tenderness Extremity: Normal Capillary Refill, Normal Inspection, Normal Range of Motion, Non Tender, No Calf Tenderness, No Pedal Edema Neurologic/Psychiatric: Alert, Oriented x3, No Motor/Sensory Deficits, Normal Mood/Affect Skin: Normal Color, Warm/Dry Lymphatic: No Adenopathy A/P-Cardiology Admission Diagnosis chest pain nonspecific Phu Palpitation Atrial fibrillation Coronary artery disease Assessment/Plan Chest pain nonspecific etiology could be secondary to tachycardia, history of coronary artery disease last workup was done in 2013, continue to monitor EKG and cardiac enzymes. Continue on anticoagulation for now. Atrial fibrillation with rapid ventricular response, started on Cardizem drip, borderline hypotensive at this time. Continue on Cardizem and add digoxin and monitor heart rate and blood pressure, I will give her IV fluid and monitor blood pressure [id number] score is 4, yearly risk of stroke without oral anticoagulation is 4 percent, maintained on Eliquis, questionable long-term tolerance due to the anemia Coronary artery disease history of stent to the right coronary artery done in 2009, cardiac catheterization done by Dr. Kebede in 2013 reported mild-to- moderate disease nonobstructive disease. Continue to monitor Anemia, chronic iron deficiency, unknown source, probably occult blood loss, maintained on Eliquis at this time. I will consult Dr. Haywood for evaluation and consideration for transfusion BMI is 46, discussed the possibility of having underlying sleep apnea and recommended sleep study as an outpatient. Hypertension, currently borderline hypotensive, continue to monitor blood pressure and restart home medication Hyperlipidemia, intolerant to statin, treated with neuropathic and Zetia. Monitor lipids Hypothyroidism, followed and managed by primary care physician Diabetes mellitus, followed and managed by primary care physician Gastroesophageal reflux disease, maintained on PPI Clinical Quality Measures AMI/AHF: ASA po Prior to arrival: Yes AYSE DODSON MD Jan 29, 2017 12:52
[2017-01-29] MEDS ORDERED: PROM25TA14 PO (12:58)
[2017-01-29] MEDS ORDERED: PANT40TA3 PO (12:58)
[2017-01-29] MEDS ORDERED: METF1000 PO (12:58)
[2017-01-29] MEDS ORDERED: METO100T6 PO (12:58)
[2017-01-29] MEDS ORDERED: APIX5TAB PO (12:58)
[2017-01-29] MEDS ORDERED: TRAM50TA2 PO (12:58)
[2017-01-29] MEDS: DILTIAZEM DRIP 100 MG/NS 100 ML IV SCH ×6 (13:51→22:12)
[2017-01-29] MEDS ORDERED: MELO15TA14 PO (13:52)
[2017-01-29] MEDS ORDERED: SUCR1TAB PO (13:54)
[2017-01-29] MEDS ORDERED: DIGOXIN 0.25 MG/ML (LANOXIN) 2 ML AMP IV NR (14:52)
[2017-01-29] MEDS: NS IV 1000 ML 1,000 ML IV SCH (15:30)
[2017-01-29] MEDS ORDERED: inSUlin (REGULAR) HUMAN 1 UNIT/0.01 ML (CHARGE PER UNIT) SC SCH (16:00)
[2017-01-29] MEDS: ENOXAPARIN 300 MG/3 ML (LOVENOX) MULTI-DOSE VIAL SQ SCH (16:34)
--- NOTE | 2017-01-29 17:24 | History & Physicial ([facility]) ---
HPI History of Present Illness: 61 yo patient that presented to ED this AM after having palpitations and chest pain that started last night. Patient states that she has been seeing Hematology and has had a blood transfusion and 2 iron transfusions in the last 2 weeks with no improved in hemoglobin. She denies feeling sick other then nausea when her heart was racing. States that she was having chest pain in the middle of her chest that went down her left arm below the elbow. Since being started on the drip in the ED she is feeling much better and her chest pain has resolved. States that she took 2 tabs of nitro at home and 2 in the ambulance prior to arrival as well as ASA. Denies any chest pain prior to the palpitations. No shortness of breath or pain otherwise. 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 Alcohol Use: Denies Use Recreational Drug Use: No Smoking Status: Former Smoker Recent Foreign Travel: No Contact w/other who traveled: No Recent Hopitalizations: No Recent Infectious Disease Expo: No Immunizations Up To Date Date of Pneumonia Vaccine: Jun 23, 2016 Date of Influenza Vaccine: Mar 24, 2016 Past Medical History Paroxysmal Atrial fibrillation CAD NIDDM Chronic Microcytic anemia with normal EGD and Colonoscopy last month, transfusion dependent HTN Review of Systems ([facility]) Constitutional: No chills, No dizziness, No fever, malaise, weakness EENTM: no symptoms reported Respiratory: dyspnea on exertion (with palpitations, denies any now), short of breath, No wheezing Cardiovascular: chest pain, edema, palpitations Gastrointestinal: No constipation, No diarrhea, No loss of appetite, nausea, No vomiting Genitourinary: no symptoms reported, No dysuria, No frequency, No hematuria : No Musculoskeletal: muscle pain (Left arm pain: resolved) Skin: no symptoms reported, No lesions, No rash Reviewed Test Results Reviewed Test Results Lab Laboratory Tests Test 01/29/17 08:52 Range/Units White Blood Count 7.3 4.3-11.0 10^3/uL Red Blood Count 2.59 L 4.35-5.85 10^6/uL Hemoglobin 7.7 L 11.5-16.0 G/DL Hematocrit 25 L 35-52 % Mean Corpuscular Volume 96 80-99 FL Mean Corpuscular Hemoglobin 30 25-34 PG Mean Corpuscular Hemoglobin Concent 31 L 32-36 G/DL Red Cell Distribution Width 14.9 H 10.0-14.5 % Platelet Count 162 130-400 10^3/uL Mean Platelet Volume 10.2 7.4-10.4 FL Neutrophils (%) (Auto) 70 42-75 % Lymphocytes (%) (Auto) 16 12-44 % Monocytes (%) (Auto) 9 0-12 % Eosinophils (%) (Auto) 4 0-10 % Basophils (%) (Auto) 0 0-10 % Neutrophils # (Auto) 5.1 1.8-7.8 X 10^3 Lymphocytes # (Auto) 1.2 1.0-4.0 X 10^3 Monocytes # (Auto) 0.7 0.0-1.0 X 10^3 Eosinophils # (Auto) 0.3 0.0-0.3 10^3/uL Basophils # (Auto) 0.0 0.0-0.1 10^3/uL Sodium Level 136 135-145 MMOL/L Potassium Level 4.6 3.6-5.0 MMOL/L Chloride Level 101 98-107 MMOL/L Carbon Dioxide Level 22 21-32 MMOL/L Anion Gap 13 5-14 MMOL/L Blood Urea Nitrogen 13 7-18 MG/DL Creatinine 1.20 0.60-1.30 MG/DL Estimat Glomerular Filtration Rate 46 BUN/Creatinine Ratio 11 Glucose Level 450 *H 70-105 MG/DL Calcium Level 9.2 8.5-10.1 MG/DL Total Bilirubin 0.6 0.1-1.0 MG/DL Aspartate Amino Transf (AST/SGOT) 42 H 5-34 U/L Alanine Aminotransferase (ALT/SGPT) 21 0-55 U/L Alkaline Phosphatase 56 40-136 U/L Troponin I < 0.30 <0.30 NG/ML Total Protein 6.8 6.4-8.2 GM/DL Albumin 3.6 3.2-4.5 GM/DL Thyroid Stimulating Hormone (TSH) 6.61 H 0.35-4.94 UIU/ML Radiology Date of Exam:01/29/17 CHEST 1 VIEW, AP/PA ONLY INDICATION: Chest pain. COMPARISON: 05/21/2010. FINDINGS: The lungs are free of acute infiltrate. The heart size is within normal limits. There is no vascular congestion. No edema, pneumonia, effusion or pneumothorax. IMPRESSION: No acute appearing abnormality. Physical Exam-([facility]) Physical Exam Vital Signs VS - Last 72 Hours, by Label 01/29/17 01/29/17 01/29/17 01/29/17 08:48 08:48 09:10 10:30 Temp 97.1 Pulse 200 118 Resp 18 18 B/P (MAP) 124/69 106/55 Pulse Ox 100 97 O2 Delivery Nasal Cannula Nasal Cannula Nasal Cannula O2 Flow Rate 2.00 2.0 2.00 01/29/17 01/29/17 01/29/17 01/29/17 10:52 11:00 12:00 12:40 Pulse 122 115 102 Resp 19 13 B/P (MAP) 122/71 110/55 Pulse Ox 96 96 O2 Delivery Room Air Room Air 01/29/17 01/29/17 01/29/17 01/29/17 13:00 13:00 14:00 15:00 Pulse 112 112 120 116 Resp 21 8 14 B/P (MAP) 124/52 130/60 132/59 Pulse Ox 96 98 96 O2 Delivery Room Air Room Air Room Air 01/29/17 01/29/17 01/29/17 15:30 16:12 16:51 Temp 98.1 B/P (MAP) 127/78 O2 Delivery Room Air Room Air Capillary Refill : Less Than 3 Seconds General Appearance: WD/WN, no apparent distress HEENT: PERRL/EOMI Neck: non-tender, full range of motion, supple, normal inspection Respiratory: chest non-tender, lungs clear, normal breath sounds, no respiratory distress, no accessory muscle use Cardiovascular: normal peripheral pulses, regular rate, rhythm, no edema, no murmur Gastrointestinal: normal bowel sounds, non tender, soft, no organomegaly Back: no CVA tenderness Extremities: normal range of motion, non-tender, normal inspection, no pedal edema, no calf tenderness, normal capillary refill Neurologic/Psychiatric: light adjuster II-XII nml as tested, no motor/sensory deficits, alert, normal mood/affect, oriented x 3 Skin: normal color, warm/dry Lymphatic: no adenopathy Assessment/Plan Assessment/Plan Plan 61 yo F admitted with Atrial fibrillation with RVR Plan Atrial Fibrillation with RVR - Cardiology consulted - Cardizem drip started, cardiology to start rate control medication - CE trending - Continue Elliquis for stroke risk reduction Atypical Chest pain: likely 2/2 demand ischemia - CE trending - Resolved with rate control NIDDM - Restart PO medications - SSI with accuchecks - A1c pending Microcytic Anemia, likely playing roll in Afib with RVR - Follows with Hematology, consulted - Normal EGD and Colonoscopy in the last 2 weeks HTN: Currently normotensive Hypothyroidism - TSH pending - Continue home dose FEN: Heart healthy/DM diet DVT: PO anticoagulation Dispo: Admit to cardiac stepdown Diagnosis/Problems: Clinical Quality Measures AMI/AHF: ASA po Prior to arrival: Yes DVT/VTE Risk/Contraindication: Risk Factor Score Per Nursin RFS Level Per Nursing on Admit: 3=High Copy Copies To 1: JAMES WILSON MD, HOLLY R MD Jan 29, 2017 17:24
[2017-01-29] MEDS ORDERED: NS (IVPB) 250 ML ONE (18:27)
[2017-01-29] MEDS ORDERED: ACETAMINOPHEN 325 MG TABLET/CAPLET (TYLENOL) PO NR (19:26)
[2017-01-29] MEDS: GLIMEPIRIDE 2 MG (AMARYL) TAB PO SCH (19:57)
[2017-01-29] MEDS: meTOprolol SUCCINATE 100 MG (TOPROL XL) TAB PO SCH (19:58)
[2017-01-29] MEDS ORDERED: DIAZEPAM 5 MG (VALIUM) TABLET ONE (23:39)
[2017-01-30] VITALS (22 sets, daily range): BP systolic 91–153; BP diastolic 35–92
[2017-01-30] MEDS: NS IV 1000 ML 1,000 ML IV SCH ×3 (00:59→21:32)
[2017-01-30 04:12] LABS: RED BLOOD COUNT 3.11 10^6/uL (4.35-5.85); RED CELL DISTRIBUTION WIDTH 16.8 % (10.0-14.5); RETICULOCYTE % 5.75 % (0.50-2.40); WHITE BLOOD COUNT 8.5 10^3/uL (4.3-11.0)
[2017-01-30 04:39] LABS: ALBUMIN 3.4 GM/DL (3.2-4.5); BILIRUBIN,TOTAL 1.3 MG/DL (0.1-1.0); CALCIUM 8.3 MG/DL (8.5-10.1); CREATININE SERUM 1.28 MG/DL (0.60-1.30); TOTAL PROTEIN 6.8 GM/DL (6.4-8.2)
[2017-01-30 05:00] LABS: DIGOXIN 0.71 NG/ML (0.80-2.00); THYROID STIMULATING HORMONE 4.95 UIU/ML (0.35-4.94)
[2017-01-30 05:03] LABS: TROPONIN I 0.81 NG/ML (<0.30)
[2017-01-30] MEDS: ENOXAPARIN 300 MG/3 ML (LOVENOX) MULTI-DOSE VIAL SQ SCH (05:47)
[2017-01-30] MEDS: inSUlin (REGULAR) HUMAN 1 UNIT/0.01 ML (CHARGE PER UNIT) SC SCH ×4 (05:47→21:03)
[2017-01-30] MEDS: DILTIAZEM DRIP 100 MG/NS 100 ML IV SCH ×2 (05:47)
[2017-01-30] MEDS ORDERED: ONDANSETRON 4 MG/2 ML (SDV) Z0FRAN IV NR (06:45)
[2017-01-30] MEDS: meTOproloL SUCCINATE 50 MG (TOPROL XL) TAB PO SCH (08:36)
[2017-01-30] MEDS: PANTOPRAZOLE 40 MG (PROTONIX) TAB PO SCH (08:36)
[2017-01-30] MEDS: LEVOTHYROXINE 150 MCG (LEVOTHROID) TAB PO SCH (08:37)
[2017-01-30] MEDS: LORATADINE (CLARITIN) 10 MG TAB PO SCH (08:37)
[2017-01-30] MEDS: GLIMEPIRIDE 2 MG (AMARYL) TAB PO SCH ×2 (08:37→21:03)
[2017-01-30] MEDS ORDERED: eZETimibe 10 MG (ZETIA) TABLET PO SCH (09:00)
--- NOTE | 2017-01-30 09:26 | Cardiac Procedure Note-CS/ASA ---
Pre-Procedure Note Pre-Op Procedure Note H&P Reviewed The H&P was reviewed, patient examined and no changes noted. Date H&P Reviewed: Jan 30, 2017 Time H&P Reviewed: : Conscious Sedation Pre-Proced Time Reviewed: ASA Class: 3 Airway Mallampati Classification: (sitka appropriate class) I. II. III, IV Lungs Heart ASA score ASA 1: a normal healthy patient ASA 2: a patient with a mild systemic disease (mid diabetes, controlled hypertension, obesity x ASA 3: a patient with a severe systemic disease that limits activity (angina , COPD, prior Myocardial infarction) ASA 4: a patient with an incapacitating disease that is a constant threat to life (CHF, renal failure) ASA 5: a moribund patient not expected to survive 24 hrs. (ruptured aneurysm) ASA 6: a declared brain patient whose organs are being harvested. For emergent operations, add the letter E after the classification Grade 3 Sedation Plan: Analgesia, Amnesia, Plan communicated to team members, Discussed options with patient/fam, Discussed risks with patient/fam Note The patient is an appropriate candidate to undergo the planned procedure, sedation, and anesthesia. The patient immediately re-assessed prior to indication. AYSE DODSON MD Jan 30, 2017 09:26
--- NOTE | 2017-01-30 09:26 | Cardiology Progress Note ---
Subjective Date Seen by Provider: Jan 30, 2017 Time Seen by Provider: 09:21 Subjective/Events-last exam Patient is laying down in bed, heart rate is better controlled, still in atrial fibrillation, denied any chest pain, no palpitation, troponin is elevated. We discussed the possibility of doing cardiac catheterization versus stress testing. Review of Systems General: No Chills, No Night Sweats, No Fatigue, No Malaise, No Appetite, No Other HEENT: No Head Aches, No Visual Changes, No Eye Pain, No Ear Pain, No Dysphasia , No Sinus Congestion, No Post Nasal Drip, No Sore Throat, No Other Pulmonary: No Dyspnea, No Cough, No Pleuritic Chest Pain, No Other Cardiovascular: Palpitations, No: Chest Pain, Orthopnea, Paroxysmal Noc. Dyspnea, Edema, Lt Headedness, Other Objective-Cardiology Exam Last Set of Vital Signs Vital Signs 01/30/17 01/30/17 01/30/17 05:47 06:00 07:00 Temp 98.0 Pulse 57 Resp 24 B/P (MAP) 125/54 Pulse Ox 94 O2 Delivery Room Air O2 Flow Rate 2.00 Capillary Refill : Less Than 3 Seconds I&O Intake and Output 01/30/17 23:59 Intake Total 600 ml Balance 600 ml Intake Oral 600 ml # Voids 2 General: Alert, Oriented X3, Cooperative HEENT: Atraumatic, PERRLA Neck: Supple, No JVD, No Thyromegaly Lungs: Clear to Auscultation, Normal Air Movement Heart: Normal S1, Normal S2, No Murmurs, Other (atrial fibrillation) Abdomen: Normal Bowel Sounds, Soft, No Tenderness, No Hepatosplenomegaly, No Masses Extremities: No Clubbing, No Cyanosis, No Edema, Normal Pulses, No Tenderness/ Swelling Skin: No Rashes, No Breakdown, No Significant Lesion Neuro: Normal Gait, Normal Speech, Strength at 5/5 X4 Ext, Normal Tone, Sensation Intact Psych/Mental Status: Mental Status NL, Mood NL Results Lab Laboratory Tests 01/30/17 03:46 A/P-Cardiology Admission Diagnosis chest pain nonspecific Phu Palpitation Atrial fibrillation Coronary artery disease Assessment/Plan Chest pain nonspecific etiology, elevated troponin level, non-ST elevation myocardial infarction, most probably due to the tachycardia and severe anemia in addition to coronary artery disease, last cardiac workup was done in 2013, we discussed the possibility of doing stress test versus cardiac catheterization , due to the excess of her comorbid condition, patient requested to proceed with cardiac catheterization. Paroxysmal atrial fibrillation, heart rate is better controlled at this time, maintain on Cardizem drip. I will change it to oral and continue on digoxin and monitor her tolerance and response. [id number] score is 4, yearly risk of stroke without oral anticoagulation is 4 percent, maintained on Eliquis, questionable long-term tolerance due to the anemia Coronary artery disease history of stent to the right coronary artery done in 2009, cardiac catheterization done by Dr. Kebede in 2013 reported mild-to- moderate disease nonobstructive disease, elevated troponin level. Planning to proceed with cardiac catheterization Anemia, chronic iron deficiency, unknown source, probably occult blood loss, maintained on Eliquis at this time, probably patient was not taking it. Questionable tolerance BMI is 46, discussed the possibility of having underlying sleep apnea and recommended sleep study as an outpatient. Hypertension, blood pressure is better at this time. Continue to monitor Hyperlipidemia, intolerant to statin, treated with neuropathic and Zetia. Monitor lipids Hypothyroidism, followed and managed by primary care physician Diabetes mellitus, followed and managed by primary care physician Gastroesophageal reflux disease, maintained on PPI Clinical Quality Measures AMI/AHF: ASA po Prior to arrival: Yes DVT/VTE Risk/Contraindication: Risk Factor Score Per Nursin RFS Level Per Nursing on Admit: 3=High AYSE DODSON MD Jan 30, 2017 09:26
[2017-01-30] MEDS ORDERED: NS IV 1000 ML 1,000 ML IV SCH ×2 (09:30→10:51)
[2017-01-30] MEDS ORDERED: HEParin (CATH LAB) 2,000 ML IV ONE (09:32)
[2017-01-30] MEDS ORDERED: MIDAZOLAM 5 MG/5 ML (VERSED) VIAL ONE (09:32)
[2017-01-30] MEDS ORDERED: fentaNYL INJECTION 100 MCG/2 ML AMP ONE (09:32)
[2017-01-30 09:57] LABS: INR 1.2 (0.8-1.4); PROTHROMBIN TIME PATIENT 14.9 SEC (12.2-14.7)
[2017-01-30] MEDS ORDERED: ONDANSETRON 4 MG/2 ML (SDV) Z0FRAN ONE (10:54)
--- NOTE | 2017-01-30 10:59 | Cardiac Cath Report ---
Cardiac Cath Report Physician (s)/Telecommunications Professional (s) Physician AYSE DODSON MD Pre-Procedure Diagnosis Pre-Procedure Diagnosis: coronary artery disease, elevated troponin Post-Procedure Note Procedure Start Date: Jan 30, 2017 Procedure Start Time: 10:30 Name of Procedure: left heart catheterization Findings/Procedure Note PROCEDURE NOTE: After explaining the procedure to the patient, all pros and cons were explained, all questions were answered. The patient signed the consent and then she was placed on the cardiac catheterization laboratory. The patient was placed on the cardiac catheterization laboratory. Groin was prepped SL fashion local anesthesia was used. Sheath placed in the artery. Jignesh right and left catheter were used to access the coronary system. Pigtail was used to access the left ventricular cavity. Left ventriculogram was done At the end of the procedure the sheath was removed. FINDINGS: Hemodynamics LV 114/35 and diastolic pressure of 35 Aorta 154/76 mean of 104 ANATOMY: Left Main has 50-60 percent distal stenosis just above the bifurcation Left Anterior Descending has mild disease at its ostium, diffuse moderate disease in the LAD Left Circumflex 50-60 percent ostial stenosis, mid circumflex artery has 60-70 percent stenosis Right Coronory Artery has patent stent with 50-60 percent in-stent restenosis LV Gram was done in the right anterior oblique position left ventricular is normal in size, systolic function is normal estimated ejection fraction 60 percent CONCLUSION: 50-60 percent distal left main coronary artery stenosis involving the ostium of the circumflex and LAD Mild to moderate disease in the body of the LAD system 60-70 percent stenosis in the mid circumflex artery 50-60 percent in-stent restenosis in the midright coronary artery Normal left ventricular size and contractility with ejection fraction 60 percent , elevated left ventricular end-diastolic pressure DISCUSSION AND RECOMMENDATION: Mrs. 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 She has elevated left ventricular end-diastolic pressure, I'll give her Lasix and continue on beta blockers and continue to control heart rate with Cardizem, questionable tolerance to Eliquis on the long run due to chronic iron deficiency anemia requiring blood transfusion and questionable GI loss Anesthesia Type: Conscious Sedation Estimated blood loss (mL): 25 ml Contrast Amount: 70 ml Total Radiation Dose: 799 mGy Post-Procedure Diagnosis Post-operative diagnosis: CAD A fib AYSE DODSON MD Jan 30, 2017 10:59
[2017-01-30] MEDS ORDERED: PATIENT MAY USE OWN MEDS, ALL PO SCH (11:00)
[2017-01-30] MEDS: DILTIAZEM 60 MG (CARDIZEM) TAB PO SCH ×2 (12:18→18:54)
--- NOTE | 2017-01-30 14:31 | Progress Note-Standard ---
Standard Progress Note Progress Notes/Assess & Plan Date Seen by Provider: Jan 30, 2017 Time Seen by Provider: 14:21 Progress/Assessment & Plan 61 yo female admitted with A.fib with RVR and significant anemia. Patient has allo antibody which makes crossmatch difficult. Anemia is due to GI bleeding with 2 hemoccult positive stools in early December 2016. Patient was started on chronic anticoagulation earlier this year. She has received parenteral iron therapy in August, late November and early January for iron deficiency. Hence not a good candidate for chronic anticoagulation. Will need capsule endoscopy to evaluate small intestine for source of blood loss. Maintain hemoglobin >9.0 because of CAD and MS. Weekly labwork at the cancer center while on anticoagulation. If d/c over the weekend f/u at cancer center on Thursday for CBC. No heme/onc coverage this weekend. Full consult dictated. SHIREEN AGARWAL Jan 30, 2017 14:31
[2017-01-30] MEDS: FUROSEMIDE 40 MG/4 ML INJ (LASIX) IVP SCH (18:55)
--- NOTE | 2017-01-30 19:47 | CONSULTATION REPORT ---
DATE OF SERVICE: 01/30/2017 PHYSICIAN REQUESTING CONSULT AND PRIMARY PHYSICIAN: Carla Wilson MD IMPRESSION: 1. A 61-year-old female admitted with chest pain and shortness of breath. 2. Significant anemia due to GI blood loss and iron deficiency. 3. History of iron deficiency anemia since 2013 and requiring parenteral iron therapy. The patient has just completed 1 course of parenteral iron therapy in the last 1 week. 4. History of atrial fibrillation and started on oral anticoagulation for stroke prophylaxis a few months ago. 5. Coronary artery disease with moderate disease in all arteries. RECOMMENDATIONS: 1. The patient has GI blood loss causing the significant anemia. She has required blood transfusion and parenteral iron therapy 3 times since September 2016 at which time she was started on oral anticoagulation therapy. Because of this, she is not an ideal candidate for anticoagulation therapy for stroke prophylaxis. I would recommend discontinuing oral anticoagulation therapy at the earliest. 2. History of significant gastritis documented by EGD in 2013 as well as in 12/2016. 3. The patient has not had her small bowel evaluated for source of blood loss. I would recommend a capsule endoscopy to evaluate this. 4. She may be a candidate for EP studies and possible ablation for the atrial fibrillation so that she does not have to take prolonged anticoagulation. 5. The patient also has an alloantibody JKA, which makes crossmatching and transfusion problematic. BRIEF HISTORY: The patient is a 61-year-old female who was admitted to the hospital with chest pain and shortness of breath. The patient has a longstanding history of iron deficiency anemia with significant gastritis noted in the past. Recently she has required outpatient transfusion as well as parenteral iron therapy frequently. The patient was diagnosed with atrial fibrillation and started on stroke prophylaxis earlier this year. She had a recent workup with 2 stool samples positive for blood. Her absolute reticulocyte count has been elevated. She has renal dysfunction and erythropoietin level was checked which was above normal. All of this indicates acute blood loss rather than a production problem. She was found to have non-ST elevated WA and had a cardiac catheterization during the current hospitalization, which showed multivessel moderate coronary artery disease. She did not require any stent placement. At the time of admission, she was also in atrial fibrillation with rapid ventricular rate in the high 100s. This has been controlled with calcium channel blockers. A hematology consultation was requested because of the significant anemia noted at the time of admission. PAST MEDICAL HISTORY: Significant for iron deficiency anemia as mentioned above. She has significant gastritis documented in 12/2016 as well as in 2013. Colonoscopies were negative on both occasions. She has coronary artery disease. Recently diagnosed with atrial fibrillation and on chronic anticoagulation for stroke prophylaxis. She has a history of hypertension, hyperlipidemia, hypothyroidism, diabetes mellitus type 2, and gastroesophageal reflux disease. SOCIAL HISTORY: The patient is , [place] in [place]. 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 Currently is not working. She is taking care of her , who has other medical problems. No significant tobacco, alcohol, or recreational drug use. FAMILY HISTORY: Significant for coronary artery disease and hypertension in several relatives. PHYSICAL EXAMINATION: GENERAL: Today showed an elderly female, obese, awake and oriented and in mild discomfort. HEENT: Normocephalic, extraocular muscles intact. Conjunctivae slightly pale. Oral mucosa moist. NECK: Supple with no JVD. No cervical, supraclavicular, or axillary lymphadenopathy palpable. CHEST: Symmetrical. LUNGS: Fairly clear to auscultation without wheezes or rales. CARDIOVASCULAR: Irregular with a controlled rate. No murmurs or gallops heard. ABDOMEN: Obese, soft, nontender with no hepatosplenomegaly or masses palpable. EXTREMITIES: Showed no edema. NEUROLOGICAL: Showed no focal motor deficits. CBC done yesterday at the time of admission showed WBC 7.3, hemoglobin 7.7, MCV 96, RDW 14.9 and platelet count of 162,000. Documented differential count was within normal limits. Chemistry panel done at the time of admission showed normal electrolytes. BUN was 13, creatinine 1.2 with GFR 46 mL per minute. Nonfasting blood glucose was 450. AST was elevated at 42 with the rest of the liver function studies within normal limits. TSH was elevated at 6.61. The patient received 2 units of packed red blood cells last night and a CBC done this morning showed WBC 8.5, hemoglobin 9.2, platelet count of 189,000. The absolute reticulocyte count was elevated at 179,000. Troponin level done today was elevated at 0.81. Most recent ferritin level done on 01/19/2017 was 37 and patient received another dose of parenteral iron therapy. Prior to this, she received parenteral therapy in late 11/2016 as well as in early 08/2016. On 12/18/2016, the patient had 2 separate stool samples checked for occult blood both of which were positive. The patient had a cardiac catheterization earlier today and the report showed moderate coronary artery disease in all vessels. The left ventricular ejection fraction was normal at 60%. Thank you for allowing me to participate in this patient's care. I will follow the patient with you and make appropriate recommendations. In the interim, I will try to maintain her hemoglobin more than 9 grams/dL because of the moderate coronary artery disease. Job ID: [id number] DocumentID: [id number] Dictated Date: 01/30/2017 14:20:43 Fruit Loader Machine Operator Date: 01/30/2017 18:20:38 Dictated By: SHIREEN AGARWAL MD
[2017-01-30] MEDS: meTOprolol SUCCINATE 100 MG (TOPROL XL) TAB PO SCH (21:03)
[2017-01-30] MEDS: DIGOXIN 0.25 MG (LANOXIN) TAB PO SCH (21:03)
[2017-01-30] MEDS: APIXABAN 5 MG (ELIQUIS) TABLET PO SCH (21:03)
[2017-01-31] VITALS (16 sets, daily range): BP systolic 118–170; BP diastolic 45–97
[2017-01-31] MEDS: DILTIAZEM 60 MG (CARDIZEM) TAB PO SCH ×3 (00:57→11:51)
[2017-01-31 04:28] LABS: BASOPHILS % (AUTO) 0 % (0-10); EOSINOPHILS # (AUTO) 0.3 10^3/uL (0.0-0.3); EOSINOPHILS % (AUTO) 4 % (0-10); LYMPHOCYTES # (AUTO) 1.5 X 10^3 (1.0-4.0); LYMPHOCYTES % (AUTO) 18 % (12-44); MEAN CORPUSCULAR HEMOGLOBIN 30 PG (25-34); MEAN CORPUSCULAR HGB CONC 31 G/DL (32-36); MEAN CORPUSCULAR VOLUME 96 FL (80-99); MEAN PLATELET VOLUME 10.6 FL (7.4-10.4); MONOCYTES # (AUTO) 0.7 X 10^3 (0.0-1.0); MONOCYTES % (AUTO) 9 % (0-12); NEUTROPHILS # (AUTO) 5.6 X 10^3 (1.8-7.8); NEUTROPHILS % (AUTO) 69 % (42-75); PLATELET COUNT 173 10^3/uL (130-400); RED BLOOD COUNT 2.95 10^6/uL (4.35-5.85); RED CELL DISTRIBUTION WIDTH 17.2 % (10.0-14.5); WHITE BLOOD COUNT 8.2 10^3/uL (4.3-11.0)
[2017-01-31 05:13] LABS: ALBUMIN 3.4 GM/DL (3.2-4.5); BILIRUBIN,TOTAL 0.9 MG/DL (0.1-1.0); CALCIUM 8.3 MG/DL (8.5-10.1); CREATININE SERUM 1.33 MG/DL (0.60-1.30); MAGNESIUM 1.6 MG/DL (1.8-2.4); PHOSPHORUS 1.2 MG/DL (2.3-4.7); POTASSIUM 4.6 MMOL/L (3.6-5.0); TOTAL PROTEIN 6.6 GM/DL (6.4-8.2)
[2017-01-31] MEDS ORDERED: KCL 20 MEQ TAB (K-DUR) PO SCH (06:00)
[2017-01-31] MEDS ORDERED: MAGNESIUM 1 GM/100 ML IVPB 100 ML IV SCH (06:00)
[2017-01-31] MEDS ORDERED: POTASSIUM CL 10MEQ/50ML IVPB 50 ML IV SCH (06:00)
[2017-01-31] MEDS: FUROSEMIDE 40 MG/4 ML INJ (LASIX) IVP SCH (06:40)
[2017-01-31] MEDS: inSUlin (REGULAR) HUMAN 1 UNIT/0.01 ML (CHARGE PER UNIT) SC SCH ×2 (06:40→11:51)
[2017-01-31] MEDS: NS IV 1000 ML 1,000 ML IV SCH (07:12)
[2017-01-31] MEDS: MAGNESIUM 1 GM/100 ML IVPB 100 ML IV SCH ×2 (08:50→08:51)
[2017-01-31] MEDS: LEVOTHYROXINE 150 MCG (LEVOTHROID) TAB PO SCH (08:50)
[2017-01-31] MEDS: PANTOPRAZOLE 40 MG (PROTONIX) TAB PO SCH (08:50)
[2017-01-31] MEDS: APIXABAN 5 MG (ELIQUIS) TABLET PO SCH (08:50)
[2017-01-31] MEDS: LORATADINE (CLARITIN) 10 MG TAB PO SCH (08:50)
[2017-01-31] MEDS: DIGOXIN 0.25 MG (LANOXIN) TAB PO SCH (08:50)
[2017-01-31] MEDS: meTOproloL SUCCINATE 50 MG (TOPROL XL) TAB PO SCH (08:50)
[2017-01-31] MEDS: GLIMEPIRIDE 2 MG (AMARYL) TAB PO SCH (08:50)
--- NOTE | 2017-01-31 09:52 | Diagnostic Imaging Report ---
INDICATION: Atrial fibrillation. FINDINGS: The heart size is in upper limits. There is no gross over dilatation of the vascular structures and there is no convincing evidence for pulmonary edema. Sensitivity is limited by portable technique and body habitus. No focal infiltrate. IMPRESSION: No acute finding apparent. Dictated by: Dictated on workstation # [id number]
--- NOTE | 2017-01-31 13:43 | Progress Note (SOAP) ---
Subjective Subjective/Events-last exam Patient states that she has been having some chest pain overnight. Plan for cath today with Dr Sosa. Having shortness of breath with activity but it is improved since heart rate has improved. Tolerating PO diet and ambulation Review of Systems Date Seen by Provider: Jan 30, 2017 Time Seen by Provider: 10:05 General: Night Sweats Pulmonary: Dyspnea, Cough Cardiovascular: Chest Pain, Edema, No: Palpitations Gastrointestinal: No: Nausea, Vomiting Objective Exam Last Set of Vital Signs Vital Signs Date Time Temp Pulse Resp B/P (MAP) Pulse Ox O2 Delivery O2 Flow Rate FiO2 01/31/17 11:08 Room Air 01/31/17 11:00 64 15 170/83 93 01/31/17 08:00 98.6 01/31/17 06:00 2.00 Capillary Refill : Less Than 3 Seconds I&O Intake and Output 02/01/17 00:00 Intake Total 0 ml Output Total 400 ml Balance -400 ml Intake Oral 0 ml Output Urine Total 400 ml General: Alert, Oriented X3, Cooperative, No Acute Distress Lungs: Clear to Auscultation, Normal Air Movement Heart: Regular Rate, No Murmurs Abdomen: Normal Bowel Sounds, Soft, No Tenderness Extremities: Other (1+ pitting edema equal bilaterally) Neuro: Normal Speech, Strength at 5/5 X4 Ext, Cranial Nerves 3-12 NL Psych/Mental Status: Mental Status NL, Mood NL Results/Procedures Lab Laboratory Tests 01/30/17 16:30: Glucometer 348H 01/30/17 20:30: Glucometer 366H 01/31/17 04:11: White Blood Count 8.2, Red Blood Count 2.95L, Hemoglobin 8.7L, Hematocrit 28L, Mean Corpuscular Volume 96, Mean Corpuscular Hemoglobin 30, Mean Corpuscular Hemoglobin Concent 31L, Red Cell Distribution Width 17.2H, Platelet Count 173, Mean Platelet Volume 10.6H, Neutrophils (%) (Auto) 69, Lymphocytes (%) (Auto) 18 , Monocytes (%) (Auto) 9, Eosinophils (%) (Auto) 4, Basophils (%) (Auto) 0, Neutrophils # (Auto) 5.6, Lymphocytes # (Auto) 1.5, Monocytes # (Auto) 0.7, Eosinophils # (Auto) 0.3, Basophils # (Auto) 0.0, Sodium Level 136, Potassium Level 4.6, Chloride Level 105, Carbon Dioxide Level 23, Anion Gap 8, Blood Urea Nitrogen 18, Creatinine 1.33H, Estimat Glomerular Filtration Rate 41, BUN/ Creatinine Ratio 14, Glucose Level 346H, Calcium Level 8.3L, Phosphorus Level 1.2L, Magnesium Level 1.6L, Total Bilirubin 0.9, Aspartate Amino Transf (AST/ SGOT) 41H, Alanine Aminotransferase (ALT/SGPT) 20, Alkaline Phosphatase 49, Total Protein 6.6, Albumin 3.4 01/31/17 11:04: Glucometer 525*H Radiology Date of Exam:01/29/17 CHEST 1 VIEW, AP/PA ONLY INDICATION: Chest pain. COMPARISON: 05/21/2010. FINDINGS: The lungs are free of acute infiltrate. The heart size is within normal limits. There is no vascular congestion. No edema, pneumonia, effusion or pneumothorax. IMPRESSION: No acute appearing abnormality. Assessment/Plan Assessment/Plan Plan 61 yo F admitted with Atrial fibrillation with RVR Plan Atrial Fibrillation with RVR - Cardiology consulted - Started on PO meds - Will hold Elliquis at this time due to intolerance with blood loss NSTEMI - Likely demand ischemia, Cath today NIDDM - Restart PO medications - SSI with accuchecks - A1c pending Microcytic Anemia, likely playing roll in Afib with RVR - Follows with Hematology, consulted - Normal EGD and Colonoscopy in the last 2 weeks - Discussed pill endoscopy to look for bleeding site, also consider bleeding scan HTN: Currently normotensive Hypothyroidism - TSH pending - Continue home dose FEN: Heart healthy/DM diet DVT: PO anticoagulation Dispo: Continue admission to cardiac stepdown Diagnosis/Problems: Clinical Quality Measures AMI/AHF: ASA po Prior to arrival: Yes DVT/VTE Risk/Contraindication: Risk Factor Score Per Nursin RFS Level Per Nursing on Admit: 3=High JAMES TORRES MD Jan 31, 2017 13:43
--- NOTE | 2017-01-31 13:44 | Discharge Summary ---
Diagnosis/Chief Complaint Date of Admission Jan 29, 2017 at 09:44 Date of Discharge Jan 31, 2017 Admission Diagnosis Admission Diagnosis Atrial Fibrillation with RVR NSTEMI Microcytic Anemia NIDDM HTN Hypothyroidism Discharge Diagnosis See Above Chief Complaint/HPI Chief Complaint/HPI 61 yo patient that presented to ED this AM after having palpitations and chest pain that started last night. Patient states that she has been seeing Hematology and has had a blood transfusion and 2 iron transfusions in the last 2 weeks with no improved in hemoglobin. She denies feeling sick other then nausea when her heart was racing. States that she was having chest pain in the middle of her chest that went down her left arm below the elbow. Since being started on the drip in the ED she is feeling much better and her chest pain has resolved. States that she took 2 tabs of nitro at home and 2 in the ambulance prior to arrival as well as ASA. Denies any chest pain prior to the palpitations. No shortness of breath or pain otherwise. Discharge Summary-Simple/Stand Procedures Cardiac Cath: Multivessel Disease, Normal EF Consultations Dr Sheila MD: Cardiology Discharge Physical Examination Allergies: Coded Allergies: Phyjpve-Umk-Egw Reductase Inhibitor (Verified Allergy, Intermediate, GI UPSET, N/V, 01/01/17) cefadroxil (Unverified Allergy, Mild, 01/01/17) Vitals & I&Os Vital Sign - Last 12Hours Date Time Temp Pulse Resp B/P (MAP) Pulse Ox O2 Delivery O2 Flow Rate FiO2 01/31/17 11:08 Room Air 01/31/17 11:00 64 15 170/83 93 01/31/17 08:00 98.6 01/31/17 06:00 2.00 General Appearance: Alert, Oriented X3, Cooperative, No Acute Distress Respiratory: Clear to Auscultation, Normal Air Movement Cardiovascular: Regular Rate, No Murmurs Abdominal: Normal Bowel Sounds, Soft, No Tenderness, No Hepatosplenomegaly, No Masses Extremities: Normal Pulses, No Tenderness/Swelling, Other (1+ pitting edema equal bilaterally) Skin: No Rashes, No Breakdown Neuro: Normal Gait, Normal Speech, Strength at 5/5 X4 Ext, Normal Tone, Sensation Intact, Cranial Nerves 3-12 NL Psych/Mental Status: Mental Status NL, Mood NL Hospital Course See final discharge diagnosis. Pending Labs A1c pending Radiology Reviewed Date of Exam:01/29/17 CHEST 1 VIEW, AP/PA ONLY INDICATION: Chest pain. COMPARISON: 05/21/2010. FINDINGS: The lungs are free of acute infiltrate. The heart size is within normal limits. There is no vascular congestion. No edema, pneumonia, effusion or pneumothorax. IMPRESSION: No acute appearing abnormality. Discussion & Recommendations 61 yo F that presented to ER with Atrial Fibrillation with RVR Atrial Fibrillation with RVR: Patient placed on drip and returned to SR. She was then transitioned to PO Digoxin and Diltazem and remained in SR. Cardiology was consulted. Patient unable to tolerate anticoagulation at this time due to anemia NSTEMI: Second troponin level was mildly elevated and patient decided that she would prefer cardiac cath over stress testing. See Cath report. Patient unable to tolerate statins due to severe muscle aches and pains. Patient tried several different statins. NIDDM: PO meds were held due to cardiac cath. Blood sugars were elevated. Patient can restart metformin on thursday. Microcystic Anemia: Hematology saw patient. She received 3 units of pRBCs while admitted. Will stop elliquis and other anti-platelets at this time. Patient will need capsule study or bleeding study. Discharge Condition at discharge Stable Instructions to patient/family Please see electonic discharge instructions given to patient. Discharge Medications Reviewed and agree with Discharge Medication list on patient's Discharge Instruction sheet Clinical Quality Measures AMI/AHF: ASA po Prior to arrival: Yes DVT/VTE Risk/Contraindication: Risk Factor Score Per Nursin RFS Level Per Nursing on Admit: 3=High Copy Copies To 1: JAMES TORRES MD, HOLLY R MD Jan 31, 2017 13:44
--- NOTE | 2017-01-31 14:11 | Progress Note-Cardiology ---
Cardiology SOAP Progress Note Subjective: Feels well. No cp or palp or syncope or focal weakness Objective: I&O/Vital Signs Vital Sign - Last 12Hours 01/31/17 01/31/17 01/31/17 01/31/17 03:00 04:00 04:00 04:05 Temp 97.5 Pulse 69 63 Resp 20 13 B/P (MAP) 126/45 132/54 Pulse Ox 94 95 O2 Delivery Nasal Cannula Nasal Cannula Nasal Cannula O2 Flow Rate 2.00 2.00 2.00 01/31/17 01/31/17 01/31/17 01/31/17 05:00 05:25 05:45 06:00 Temp 97.3 97.7 Pulse 61 63 62 63 Resp 25 18 18 20 B/P (MAP) 119/48 127/56 119/48 134/57 Pulse Ox 94 96 97 96 O2 Delivery Nasal Cannula Nasal Cannula Nasal Cannula Nasal Cannula O2 Flow Rate 2.00 2.00 2.00 2.00 01/31/17 01/31/17 01/31/17 01/31/17 07:00 07:00 07:00 08:00 Temp 98.4 98.6 Pulse 65 63 65 Resp 14 14 B/P (MAP) 118/53 131/53 Pulse Ox 94 92 O2 Delivery Room Air Room Air Room Air 01/31/17 01/31/17 01/31/17 01/31/17 08:00 08:00 09:00 10:00 Temp 98.6 Pulse 63 65 65 64 Resp 14 18 16 14 B/P (MAP) 131/53 118/53 162/69 156/97 Pulse Ox 92 94 94 96 O2 Delivery Room Air Room Air Room Air Room Air 01/31/17 01/31/17 11:00 11:08 Pulse 64 Resp 15 B/P (MAP) 170/83 Pulse Ox 93 O2 Delivery Room Air Room Air Weight (Pounds): 289 Weight (Ounces): 2.0 Weight (Calculated Kilograms): 131.644314 Constitutional: AAO x 3, well-developed, well-nourished Respiratory: No accessory muscle use, other (good bilat air entry) Cardiovascular: regular rate-rhythm, S1 and S2, systolic murmur (faint Martin ) Gastrointestional: No tender, soft, audible bowel sounds Extremities: No clubbing, No cyanosis Neurologic/Psychiatric: grossly intact, power is 5/5 both on sides Skin: No rash on exposed areas, No ulcerations on exposed areas Results/Procedures: Labs Laboratory Tests 01/30/17 16:30: Glucometer 348H 01/30/17 20:30: Glucometer 366H 01/31/17 04:11: White Blood Count 8.2, Red Blood Count 2.95L, Hemoglobin 8.7L, Hematocrit 28L, Mean Corpuscular Volume 96, Mean Corpuscular Hemoglobin 30, Mean Corpuscular Hemoglobin Concent 31L, Red Cell Distribution Width 17.2H, Platelet Count 173, Mean Platelet Volume 10.6H, Neutrophils (%) (Auto) 69, Lymphocytes (%) (Auto) 18 , Monocytes (%) (Auto) 9, Eosinophils (%) (Auto) 4, Basophils (%) (Auto) 0, Neutrophils # (Auto) 5.6, Lymphocytes # (Auto) 1.5, Monocytes # (Auto) 0.7, Eosinophils # (Auto) 0.3, Basophils # (Auto) 0.0, Sodium Level 136, Potassium Level 4.6, Chloride Level 105, Carbon Dioxide Level 23, Anion Gap 8, Blood Urea Nitrogen 18, Creatinine 1.33H, Estimat Glomerular Filtration Rate 41, BUN/ Creatinine Ratio 14, Glucose Level 346H, Calcium Level 8.3L, Phosphorus Level 1.2L, Magnesium Level 1.6L, Total Bilirubin 0.9, Aspartate Amino Transf (AST/ SGOT) 41H, Alanine Aminotransferase (ALT/SGPT) 20, Alkaline Phosphatase 49, Total Protein 6.6, Albumin 3.4 01/31/17 11:04: Glucometer 525*H Laboratory Tests 01/30/17 03:46 01/31/17 04:11 A/P: Assessment: PAF, currently NSR CAD with h/o prox RCA stenting with Promus 2.5 x 28 mm in May [address] Garza. Card cath of 2013 showed diffuse mod, nonobstructive disease involving all cors , normal LVEF. Card cath during this hosp (01/30/17) by Dr Sosa showed mod to mod-severe multivessel CAD that has been managed conservatively because pt is not a suitable candidate for antiplatelet therapy. LVEF on cath was 60% and LVEDP was elevated Iron deficiency anemia - receiving iron infusions- management per oncology/ hematology services. Dr Haywood has seen her during this hosp and feels iron deficiency is due to occult GI blood loss and recommended d/c all anticoag/ antiplatelet agents Hypertension Hypothyroidism - thyroid replacement tx Elevated BMI of approx 50 EGD and colonoscopy of December [address] Holt showed hiatal hernia, gastritis and hemorrhoids DM II Chronic psoriasis Hyperlipidemia - intolerant to all statins d/t n/v and muscle aches - currently taking Repatha Chronic bilat leg swelling, likely due to venous insuff. L leg chronically swells more (following remote ankle surgery) Plan: I reviewed her records of this hosp and her records with Dr Jorge, her primary barrel rifler hook I reviewed Heme consult report (Dr Field) Due to apparently active (albeit slow) slow suspected GI bleed, she is not a suitable candidate for anticoag or antiplatelet therapy Outpt f/u is advised with her barrel rifler hook next week Clinical Quality Measures AMI/AHF: ASA po Prior to arrival: Yes ARNIE MCKEON MD FACP FACC CCDS Jan 31, 2017 14:11
[2017-01-31] MEDS ORDERED: DIGO250T15 PO (14:45)
[2017-01-31] MEDS ORDERED: DILT240C86 PO (14:45)
[2017-01-31] MEDS ORDERED: NITR0.4T39 SL (14:45)
--- NOTE | 2017-01-31 14:46 | Discharge Instructions ---
Discharge [facility] Discharge Medications New, Converted or Re-Newed RX: Transmitted to Pharmacy New Medications: Diltiazem HCl (Cardizem Cd) 240 Mg Cap.er.24h 240 MG PO DAILY, #30 CAP Nitroglycerin (Nitroglycerin) 0.4 Mg Tab.subl 0.4 MG SL q 5mins x2 doses, #10 TAB Digoxin (Digox) 250 Mcg Tablet 0.25 MG PO DAILY for 30 Days, #30 TAB Continued Medications: Cetirizine Hcl (Cetirizine Hcl) 10 Mg Tablet 10 MG PO DAILY Evolocumab (Repatha Syringe) 140 Mg/1 Ml Syringe 140 MG SQ Q 2 WEEKS, SYRINGE Glimepiride (Glimepiride) 2 Mg Tablet 2 MG PO BID Gluc 2KCL/Chondr/Caty Hy/Hy Ac (Glucosamine & Chondroitin Cap) 1 Each Capsule 1 CAP PO BID Levothyroxine Sodium (Levothyroxine Sodium) 150 Mcg Tablet 150 MCG PO DAILY, TAB Metformin HCl (Metformin HCl) 1,000 Mg Tablet 1000 MG PO BID Metoprolol Succinate (Metoprolol Succinate Xl 50 Mg) 50 Mg Tab.sr.24h 50 MG PO DAILY Metoprolol Succinate (Toprol Xl) 100 Mg Tab.er.24h 100 MG PO HS Pantoprazole Sodium (Pantoprazole Sodium) 40 Mg Tablet.dr 40 MG PO DAILY Promethazine HCl (Promethazine Tablet) 25 Mg Tablet 25 MG PO Q6H PRN for NAUSEA/VOMITING-4TH LINE Sucralfate (Sucralfate) 1 Gm Tablet 1 GM PO QID, TAB Tramadol HCl (Tramadol HCl) 50 Mg Tablet 50 MG PO TID PRN for PAIN-MODERATE Discontinued Medications: Apixaban (Eliquis) 5 Mg Tablet 5 MG PO BID LAST FILLED 10/24/16 #60 Ezetimibe (Zetia) 10 Mg Tablet 10 MG PO DAILY, TAB Meloxicam (Mobic) 15 Mg Tablet 15 MG PO DAILY, TAB Nitroglycerin (Nitrostat) 0.4 Mg Tab 0 SL PRN PRN for CHEST PAIN 1 TAB Q 5 MIN X 3 Patient Instructions Goal/Follow Up Appt: You have a follow up appt with Dr Wilson on Feb [facility] Patient Instructions: - Make sure to take your new medications - Review your med list as your medications have been adjusted Return to The Hospital For: - Chest Pain - Palpitations Activity & Diet Discharge Diet: ADA Diet, Cardiac Diet Activity as Tolerated: Yes Copy Copies To 1: JAMES WILSON MD, HOLLY R MD Jan 31, 2017 13:49
== END 2017-01-31 15:52 | disposition home or self-care (01) | DRG 281 ==
LOC: EDUNIT# 08:47 → ER 08:48 → ICU 09:44
PROVIDERS: ADMIT Family Medicine; ATTEND Family Medicine
PROC: 4A023N7 Measurement of Cardiac Sampling and Pressure, Left Heart, Percutaneous Approach (ICD-10-PCS; principal; 2017-01-30)
PROC: B2151ZZ Fluoroscopy of Left Heart using Low Osmolar Contrast (ICD-10-PCS; 2017-01-30)
PROC: B2111ZZ Fluoroscopy of Multiple Coronary Arteries using Low Osmolar Contrast (ICD-10-PCS; 2017-01-30)
DX: I48.0 Paroxysmal atrial fibrillation (principal); I21.4 Non-ST elevation (NSTEMI) myocardial infarction; I25.10 Atherosclerotic heart disease of native coronary artery without angina pectoris; D50.0 Iron deficiency anemia secondary to blood loss (chronic); I11.0 Hypertensive heart disease with heart failure; I50.9 Heart failure, unspecified; E66.9 Obesity, unspecified; Z68.42 Body mass index [BMI] 45.0-49.9, adult; E78.5 Hyperlipidemia, unspecified; K21.9 Gastro-esophageal reflux disease without esophagitis; E03.9 Hypothyroidism, unspecified; E11.9 Type 2 diabetes mellitus without complications; L40.9 Psoriasis, unspecified; I87.2 Venous insufficiency (chronic) (peripheral); M79.89 Other specified soft tissue disorders; Z95.5 Presence of coronary angioplasty implant and graft; Z79.01 Long term (current) use of anticoagulants
CPT/HCPCS: 36415; 71010; 80053; 80162; 82962; 83036; 83735; 83880; 84100; 84443; 84484; 85025; 85027; 85045; 85347; 85610; 85730; 86850; 86870; 86900; 86901; 86902; 86922; 93005; 93306; 93458; 96365

== ENCOUNTER 2017-02-23 05:40 | Outpatient (CLI) | payer OTHER ==
[~2017-02-23] VITALS: Ht 162.6 cm; Wt 118.9 kg
[~2017-02-23 05:40] MED LIST changes: +DIGO250T15 PO; +DILT240C86 PO; +MELO15TA14 PO; +METF1000 PO; +METO100T6 PO; +NITR0.4T39 SL; +PANT40TA3 PO; +PROM25TA14 PO; +SUCR1TAB PO
[2017-02-23] MEDS ORDERED: OMEP40CA36 PO (11:30)
== END 2017-02-23 11:52 ==
LOC: PREOP 05:40
PROVIDERS: ATTEND Surgery
DX: Z01.818 Encounter for other preprocedural examination (principal); D64.9 Anemia, unspecified

== ENCOUNTER → 2017-03-02 | Day surgery (SDC) | payer OTHER ==
[~2017-03-02] VITALS: Ht 162.6 cm; Wt 118.9 kg
[~2017-03-02] MED LIST changes: +OMEP40CA36 PO
--- OUTSIDE RECORDS SUMMARY | 2017-03-02 07:33 | XMS REPORT ---
Author Author JAMES TORRSE Organization [facility] Address [address] [place] [address] Care Team Providers Care Electrolysis Needle Operator Name Role Phone JAMES TORRES Unavailable PROBLEMS Type Condition ICD9-CM Code [id number] Code Onset Dates Condition Status SNOMED Code Problem Non-insulin dependent type 2 diabetes mellitus E11.9 Active 50086080 Problem Coronary artery disease involving red devil coronary artery of red devil heart without angina pectoris I25.10 Active 8996781764345 Problem History of anemia Z86.2 Active 536667167 Problem Psoriasis L40.9 Active 0988466 Problem Paroxysmal atrial fibrillation I48.0 Active 176109955 Problem Acquired hypothyroidism E03.9 Active 455148625 Problem Essential hypertension I10 Active 29294211 Problem Persistent atrial fibrillation I48.1 Active 400417041 Problem Angina pectoris syndrome I20.9 Active 880383607 ALLERGIES Unknown Allergies SOCIAL HISTORY No smoking Hx information available PLAN OF CARE VITAL SIGNS MEDICATIONS Unknown Medications RESULTS No Results PROCEDURES No Known procedures IMMUNIZATIONS No Known Immunizations
--- OUTSIDE RECORDS SUMMARY | 2017-03-02 07:33 | XMS REPORT ---
Author Author JAMES TORRES Organization [facility] Address [address] [place] [address] Care Team Providers Care Back Grinder Name Role Phone JAMES TORRES Unavailable PROBLEMS Type Condition ICD9-CM Code IQL52-AC Code Onset Dates Condition Status SNOMED Code Problem History of anemia Z86.2 Active 893342066 Problem Essential hypertension I10 Active 14872004 Problem Coronary artery disease involving [place] coronary artery of [place] heart without angina pectoris I25.10 Active 4684633642915 Problem Non-insulin dependent type 2 diabetes mellitus E11.9 Active 55874395 Problem Paroxysmal atrial fibrillation I48.0 Active 542100397 Problem Psoriasis L40.9 Active 2285940 Problem Persistent atrial fibrillation I48.1 Active 678905082 Problem Acquired hypothyroidism E03.9 Active 335565638 Problem Microcytic anemia D50.9 Active 303607707 Problem Angina pectoris syndrome I20.9 Active 414696439 ALLERGIES Unknown Allergies SOCIAL HISTORY No smoking Hx information available PLAN OF CARE VITAL SIGNS MEDICATIONS Unknown Medications RESULTS No Results PROCEDURES No Known procedures IMMUNIZATIONS No Known Immunizations
[2017-03-02 13:35] VITALS: BP 155/63
== END | disposition home or self-care (01) ==
LOC: ENDO 07:20
PROVIDERS: ATTEND Surgery
DX: D64.9 Anemia, unspecified (principal); K59.09 Other constipation; E11.9 Type 2 diabetes mellitus without complications; E03.9 Hypothyroidism, unspecified

== ENCOUNTER 2017-03-04 10:21 | Outpatient (RCR) | payer OTHER ==
[2016-12-09 12:07] LABS: BASOPHILS % (AUTO) 1 % (0-10); EOSINOPHILS # (AUTO) 0.4 10^3/uL (0.0-0.3); EOSINOPHILS % (AUTO) 7 % (0-10); LYMPHOCYTES # (AUTO) 1.5 X 10^3 (1.0-4.0); LYMPHOCYTES % (AUTO) 28 % (12-44); MEAN CORPUSCULAR HEMOGLOBIN 29 PG (25-34); MEAN CORPUSCULAR HGB CONC 32 G/DL (32-36); MEAN CORPUSCULAR VOLUME 92 FL (80-99); MEAN PLATELET VOLUME 8.9 FL (7.4-10.4); MONOCYTES # (AUTO) 0.5 X 10^3 (0.0-1.0); MONOCYTES % (AUTO) 9 % (0-12); NEUTROPHILS % (AUTO) 56 % (42-75); PLATELET COUNT 174 10^3/uL (130-400); RED BLOOD COUNT 2.86 10^6/uL (4.35-5.85); RED CELL DISTRIBUTION WIDTH 13.1 % (10.0-14.5); WHITE BLOOD COUNT 5.5 10^3/uL (4.3-11.0)
[2016-12-18 14:45] LABS: BASOPHILS % (AUTO) 1 % (0-10); EOSINOPHILS # (AUTO) 0.3 10^3/uL (0.0-0.3); EOSINOPHILS % (AUTO) 5 % (0-10); LYMPHOCYTES # (AUTO) 1.7 X 10^3 (1.0-4.0); LYMPHOCYTES % (AUTO) 27 % (12-44); MEAN CORPUSCULAR HEMOGLOBIN 29 PG (25-34); MEAN CORPUSCULAR HGB CONC 32 G/DL (32-36); MEAN CORPUSCULAR VOLUME 92 FL (80-99); MEAN PLATELET VOLUME 10.2 FL (7.4-10.4); MONOCYTES # (AUTO) 0.6 X 10^3 (0.0-1.0); MONOCYTES % (AUTO) 9 % (0-12); NEUTROPHILS # (AUTO) 3.6 X 10^3 (1.8-7.8); NEUTROPHILS % (AUTO) 58 % (42-75); PLATELET COUNT 193 10^3/uL (130-400); RED BLOOD COUNT 2.83 10^6/uL (4.35-5.85); RED CELL DISTRIBUTION WIDTH 14.3 % (10.0-14.5); WHITE BLOOD COUNT 6.2 10^3/uL (4.3-11.0)
[2016-12-18 15:36] LABS: RETICULOCYTE % 3.52 % (0.50-2.40)
[2017-01-19 14:59] LABS: BASOPHILS % (AUTO) 1 % (0-10); EOSINOPHILS # (AUTO) 0.4 10^3/uL (0.0-0.3); EOSINOPHILS % (AUTO) 7 % (0-10); LYMPHOCYTES # (AUTO) 1.2 X 10^3 (1.0-4.0); LYMPHOCYTES % (AUTO) 21 % (12-44); MEAN CORPUSCULAR HEMOGLOBIN 30 PG (25-34); MEAN CORPUSCULAR HGB CONC 32 G/DL (32-36); MEAN CORPUSCULAR VOLUME 94 FL (80-99); MEAN PLATELET VOLUME 10.4 FL (7.4-10.4); MONOCYTES # (AUTO) 0.4 X 10^3 (0.0-1.0); MONOCYTES % (AUTO) 8 % (0-12); NEUTROPHILS # (AUTO) 3.7 X 10^3 (1.8-7.8); NEUTROPHILS % (AUTO) 65 % (42-75); PLATELET COUNT 191 10^3/uL (130-400); RED BLOOD COUNT 2.71 10^6/uL (4.35-5.85); WHITE BLOOD COUNT 5.8 10^3/uL (4.3-11.0)
[2017-01-19 16:06] LABS: ALBUMIN 3.7 GM/DL (3.2-4.5); BILIRUBIN,TOTAL 0.5 MG/DL (0.1-1.0); CREATININE SERUM 1.21 MG/DL (0.60-1.30); TOTAL PROTEIN 7.1 GM/DL (6.4-8.2)
[2017-01-21 14:11] LABS: RED BLOOD COUNT 2.63 10^6/uL (4.35-5.85); RETICULOCYTE % 3.05 % (0.50-2.40)
[2017-02-04 10:52] LABS: BASOPHILS % (AUTO) 1 % (0-10); EOSINOPHILS # (AUTO) 0.4 10^3/uL (0.0-0.3); EOSINOPHILS % (AUTO) 7 % (0-10); LYMPHOCYTES # (AUTO) 1.1 X 10^3 (1.0-4.0); LYMPHOCYTES % (AUTO) 18 % (12-44); MEAN CORPUSCULAR HEMOGLOBIN 30 PG (25-34); MEAN CORPUSCULAR HGB CONC 32 G/DL (32-36); MEAN CORPUSCULAR VOLUME 95 FL (80-99); MEAN PLATELET VOLUME 9.7 FL (7.4-10.4); MONOCYTES # (AUTO) 0.6 X 10^3 (0.0-1.0); MONOCYTES % (AUTO) 9 % (0-12); NEUTROPHILS # (AUTO) 4.1 X 10^3 (1.8-7.8); NEUTROPHILS % (AUTO) 66 % (42-75); PLATELET COUNT 166 10^3/uL (130-400); RED BLOOD COUNT 3.16 10^6/uL (4.35-5.85); RED CELL DISTRIBUTION WIDTH 17.2 % (10.0-14.5); WHITE BLOOD COUNT 6.2 10^3/uL (4.3-11.0)
[2017-02-11 13:55] LABS: BASOPHILS # (AUTO) 0.1 10^3/uL (0.0-0.1); BASOPHILS % (AUTO) 1 % (0-10); EOSINOPHILS # (AUTO) 0.4 10^3/uL (0.0-0.3); EOSINOPHILS % (AUTO) 7 % (0-10); LYMPHOCYTES # (AUTO) 1.3 X 10^3 (1.0-4.0); LYMPHOCYTES % (AUTO) 22 % (12-44); MEAN CORPUSCULAR HEMOGLOBIN 30 PG (25-34); MEAN CORPUSCULAR HGB CONC 32 G/DL (32-36); MEAN CORPUSCULAR VOLUME 96 FL (80-99); MEAN PLATELET VOLUME 9.7 FL (7.4-10.4); MONOCYTES # (AUTO) 0.6 X 10^3 (0.0-1.0); MONOCYTES % (AUTO) 10 % (0-12); NEUTROPHILS # (AUTO) 3.7 X 10^3 (1.8-7.8); NEUTROPHILS % (AUTO) 61 % (42-75); PLATELET COUNT 196 10^3/uL (130-400); RED BLOOD COUNT 3.39 10^6/uL (4.35-5.85); RED CELL DISTRIBUTION WIDTH 15.4 % (10.0-14.5); WHITE BLOOD COUNT 6.1 10^3/uL (4.3-11.0)
[2017-02-18 11:08] LABS: BASOPHILS % (AUTO) 1 % (0-10); EOSINOPHILS # (AUTO) 0.4 10^3/uL (0.0-0.3); EOSINOPHILS % (AUTO) 7 % (0-10); LYMPHOCYTES # (AUTO) 1.4 X 10^3 (1.0-4.0); LYMPHOCYTES % (AUTO) 22 % (12-44); MEAN CORPUSCULAR HEMOGLOBIN 30 PG (25-34); MEAN CORPUSCULAR HGB CONC 32 G/DL (32-36); MEAN CORPUSCULAR VOLUME 95 FL (80-99); MEAN PLATELET VOLUME 9.7 FL (7.4-10.4); MONOCYTES # (AUTO) 0.5 X 10^3 (0.0-1.0); MONOCYTES % (AUTO) 8 % (0-12); NEUTROPHILS # (AUTO) 3.9 X 10^3 (1.8-7.8); NEUTROPHILS % (AUTO) 63 % (42-75); PLATELET COUNT 173 10^3/uL (130-400); RED BLOOD COUNT 3.45 10^6/uL (4.35-5.85); RED CELL DISTRIBUTION WIDTH 14.9 % (10.0-14.5); WHITE BLOOD COUNT 6.3 10^3/uL (4.3-11.0)
[2017-02-25 13:25] LABS: BASOPHILS % (AUTO) 1 % (0-10); EOSINOPHILS # (AUTO) 0.4 10^3/uL (0.0-0.3); EOSINOPHILS % (AUTO) 7 % (0-10); LYMPHOCYTES # (AUTO) 1.2 X 10^3 (1.0-4.0); LYMPHOCYTES % (AUTO) 20 % (12-44); MEAN CORPUSCULAR HEMOGLOBIN 30 PG (25-34); MEAN CORPUSCULAR HGB CONC 32 G/DL (32-36); MEAN CORPUSCULAR VOLUME 95 FL (80-99); MEAN PLATELET VOLUME 9.9 FL (7.4-10.4); MONOCYTES # (AUTO) 0.5 X 10^3 (0.0-1.0); MONOCYTES % (AUTO) 9 % (0-12); NEUTROPHILS # (AUTO) 3.8 X 10^3 (1.8-7.8); NEUTROPHILS % (AUTO) 64 % (42-75); PLATELET COUNT 154 10^3/uL (130-400); RED CELL DISTRIBUTION WIDTH 14.4 % (10.0-14.5)
[~2017-03-04 10:21] MED LIST changes: +ACETAMINOPHEN 500 MG TAB (TYLENOL) CANCER CTR ONE; +FERRIC CARBOXYMALTOSE (CANCER) 750 MG in NS (IVPB) CANCER CENTER 250 ML IV SCH; +NS (IVPB) CANCER CENTER 250 ML ONE; +NS IV 500 ML (CANCER CENTER) 500 ML ONE; +diphenhydrAMINE 25 MG TAB (BENADRYL) CANCER CENTER PO ONE
[2017-03-04 10:39] LABS: BASOPHILS % (AUTO) 1 % (0-10); EOSINOPHILS # (AUTO) 0.4 10^3/uL (0.0-0.3); EOSINOPHILS % (AUTO) 7 % (0-10); LYMPHOCYTES # (AUTO) 1.3 X 10^3 (1.0-4.0); LYMPHOCYTES % (AUTO) 23 % (12-44); MEAN CORPUSCULAR HEMOGLOBIN 30 PG (25-34); MEAN CORPUSCULAR HGB CONC 32 G/DL (32-36); MEAN CORPUSCULAR VOLUME 94 FL (80-99); MEAN PLATELET VOLUME 9.5 FL (7.4-10.4); MONOCYTES # (AUTO) 0.5 X 10^3 (0.0-1.0); MONOCYTES % (AUTO) 9 % (0-12); NEUTROPHILS # (AUTO) 3.6 X 10^3 (1.8-7.8); NEUTROPHILS % (AUTO) 61 % (42-75); PLATELET COUNT 162 10^3/uL (130-400); RED BLOOD COUNT 3.42 10^6/uL (4.35-5.85); RED CELL DISTRIBUTION WIDTH 14.2 % (10.0-14.5); RETICULOCYTE % 1.79 % (0.50-2.40); WHITE BLOOD COUNT 5.8 10^3/uL (4.3-11.0)
[2017-03-04 11:11] LABS: ALBUMIN 3.7 GM/DL (3.2-4.5); BILIRUBIN,TOTAL 0.5 MG/DL (0.1-1.0); CALCIUM 9.2 MG/DL (8.5-10.1); CREATININE SERUM 1.13 MG/DL (0.60-1.30); POTASSIUM 4.5 MMOL/L (3.6-5.0); TOTAL PROTEIN 7.5 GM/DL (6.4-8.2)
[2017-03-05 06:39] LABS: HOMOCYSTEINE 21.7 umol/L (<=10.3)
[2017-03-09 08:59] LABS: METHYLMALONIC ACID 1.18 umol/L (0.00-0.40)
== END 2017-03-09 | disposition home or self-care (01) ==
LOC: ONC 10:21
PROVIDERS: ATTEND Internal Medicine Hematology & Oncology
DX: D50.9 Iron deficiency anemia, unspecified (principal); I25.10 Atherosclerotic heart disease of native coronary artery without angina pectoris; E03.9 Hypothyroidism, unspecified; I12.9 Hypertensive chronic kidney disease with stage 1 through stage 4 chronic kidney disease, or unspecified chronic kidney disease; N18.3 Chronic kidney disease, stage 3 (moderate); E11.22 Type 2 diabetes mellitus with diabetic chronic kidney disease; I48.91 Unspecified atrial fibrillation; Z79.899 Other long term (current) drug therapy
CPT/HCPCS: 36415; 36430; 80053; 82274; 82607; 82668; 82728; 83090; 83921; 85025; 85045; 86850; 86870; 86900; 86901; 86902; 86920; 86922; 96365; 99213

== ENCOUNTER 2017-04-06 11:00 | Outpatient (CLI) | payer OTHER ==
[~2017-04-06] VITALS: Ht 162.6 cm; Wt 118.9 kg
[~2017-04-06 11:00] MED LIST changes: -ACETAMINOPHEN 500 MG TAB (TYLENOL) CANCER CTR ONE; -FERRIC CARBOXYMALTOSE (CANCER) 750 MG in NS (IVPB) CANCER CENTER 250 ML IV SCH; -NS (IVPB) CANCER CENTER 250 ML ONE; -NS IV 500 ML (CANCER CENTER) 500 ML ONE; -diphenhydrAMINE 25 MG TAB (BENADRYL) CANCER CENTER PO ONE
[2017-04-06] MEDS ORDERED: GLIM2TAB PO (11:16)
[2017-04-06] MEDS ORDERED: GLUC-113 PO (11:16)
[2017-04-06] MEDS ORDERED: CETI10TA17 PO (11:16)
[2017-04-06] MEDS ORDERED: SUCR1TAB36 PO (11:16)
[2017-04-06] MEDS ORDERED: PANT40TA2 PO (11:16)
[2017-04-06] MEDS ORDERED: METO-272 PO (11:16)
== END 2017-04-06 11:22 ==
LOC: PREOP 11:00
PROVIDERS: ATTEND Surgery
DX: Z01.818 Encounter for other preprocedural examination (principal); K29.80 Duodenitis without bleeding

== ENCOUNTER → 2017-04-07 | Day surgery (SDC) | payer OTHER ==
--- OUTSIDE RECORDS SUMMARY | 2017-04-07 07:07 | XMS REPORT ---
Author Author JAMES TORRES Organization [facility] Address [address] [place] [address] Care Team Providers Care Lime Spreader Name Role Phone JAMES TORRES Unavailable PROBLEMS Type Condition ICD9-CM Code YZZ45-GH Code Onset Dates Condition Status SNOMED Code Problem History of anemia Z86.2 Active 964397799 Problem Essential hypertension I10 Active 53561703 Problem Coronary artery disease involving [place] coronary artery of [place] heart without angina pectoris I25.10 Active 7253159935725 Problem Non-insulin dependent type 2 diabetes mellitus E11.9 Active 91530590 Problem Paroxysmal atrial fibrillation I48.0 Active 075023053 Problem Psoriasis L40.9 Active 5982974 Problem Persistent atrial fibrillation I48.1 Active 783351007 Problem Acquired hypothyroidism E03.9 Active 661650670 Problem Microcytic anemia D50.9 Active 770770852 Problem Angina pectoris syndrome I20.9 Active 709667980 ALLERGIES No Information SOCIAL HISTORY Never Assessed PLAN OF CARE VITAL SIGNS MEDICATIONS Unknown Medications RESULTS No Results PROCEDURES No Known procedures IMMUNIZATIONS No Known Immunizations MEDICAL (GENERAL) HISTORY Type Description Date Medical History hypertension Medical History Hypothyrodism Medical History Type 2 diabetes mellitus without complications Medical History Anemia Medical History Chronic atrial fibrillation Medical History Arthritis Medical History Obesity Medical History GERD Surgical History ankle reconstruction Surgical History 2 left knee othroscopy Surgical History tubligation Surgical History breast reduction Surgical History tonsillectomy and adenoidectomy Hospitalization History afbrilation 2009 Hospitalization History surgeries listed above Hospitalization History child
--- OUTSIDE RECORDS SUMMARY | 2017-04-07 07:07 | XMS REPORT ---
Author Author JAMES TORRES Organization [facility] Address [address] [place] [address] Care Team Providers Care Sidewalk Inspector Name Role Phone JAMES TORRES Unavailable PROBLEMS Type Condition ICD9-CM Code UHD86-FY Code Onset Dates Condition Status SNOMED Code Problem Coronary artery disease involving [place] coronary artery of [place] heart without angina pectoris I25.10 Active 0635013091141 Problem Acquired hypothyroidism E03.9 Active 096945132 Problem Essential hypertension I10 Active 56412176 Problem 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 Active 343089962 Problem Non-insulin dependent type 2 diabetes mellitus E11.9 Active 67860827 Problem History of anemia Z86.2 Active 031334426 Problem Reflux gastritis K29.60 Active 52754733 Problem Paroxysmal atrial fibrillation I48.0 Active 969035992 Problem Persistent atrial fibrillation I48.1 Active 333883740 Problem Angina pectoris syndrome I20.9 Active 698378167 Problem Psoriasis L40.9 Active 6358079 Problem Microcytic anemia D50.9 Active 741738459 ALLERGIES No Information SOCIAL HISTORY Never Assessed PLAN OF CARE VITAL SIGNS MEDICATIONS No Known Medications RESULTS No Results PROCEDURES No Known [...] History surgeries listed above Hospitalization History child Hospitalization History Atrial Fibrillation January 2017
--- OUTSIDE RECORDS SUMMARY | 2017-04-07 07:08 | XMS REPORT ---
Author Author JAMES TORRES Organization [facility] Address [address] [place] [address] Care Team Providers Care Armhole Raiser Lockstitch Name Role Phone JAMES TORRES Unavailable PROBLEMS Type Condition ICD9-CM Code ZAJ19-FY Code Onset Dates Condition Status SNOMED Code Problem History of anemia Z86.2 Active 297938202 Problem Essential hypertension I10 Active 62466799 Problem Coronary artery disease involving [place] coronary artery of [place] heart without angina pectoris I25.10 Active 8142174245724 Problem Non-insulin dependent type 2 diabetes mellitus E11.9 Active 53134058 Problem Paroxysmal atrial fibrillation I48.0 Active 704999541 Problem Psoriasis L40.9 Active 1120480 Problem Persistent atrial fibrillation I48.1 Active 627233075 Problem Acquired hypothyroidism E03.9 Active 695250828 Problem Microcytic anemia D50.9 Active 031047959 Problem Angina pectoris syndrome I20.9 Active 006731177 ALLERGIES No Information SOCIAL HISTORY Never Assessed PLAN OF CARE VITAL SIGNS MEDICATIONS Medication Instructions Dosage Frequency Start Date End Date Duration Status Glimepiride 2 MG Orally 2 times a day 1 12h Active Metoprolol Succinate ER 50 MG Orally Once a day 1 tablet 24h Active Metformin HCl 1000 MG Orally Twice a day 1 tablet with meals 12h Active Levothyroxine Sodium 150 MCG Orally Once a day 1 tablet on an empty stomach in the morning 24h Active RESULTS No Results PROCEDURES No Known procedures [...]
== END | disposition home or self-care (01) ==
LOC: ENDO 06:54
PROVIDERS: ATTEND Surgery
DX: K29.80 Duodenitis without bleeding (principal); Z53.9 Procedure and treatment not carried out, unspecified reason
CPT/HCPCS: 91110

== ENCOUNTER → 2017-05-12 | Outpatient (CLI) | payer SELFPAY ==
[~2017-05-12] MED LIST changes: -METO-274 PO; +METO-370 PO; +METO-395 PO
== END ==
LOC: LAB 09:09
PROVIDERS: ATTEND Family Medicine
DX: E03.9 Hypothyroidism, unspecified (principal); E11.9 Type 2 diabetes mellitus without complications; I10 Essential (primary) hypertension
CPT/HCPCS: 36415; 80061; 83036; 84439; 84443

== ENCOUNTER → 2017-05-21 | Outpatient (CLI) | payer SELFPAY ==
[~2017-05-21] MED LIST changes: +CATHETER FLUSH 10 ML SYR IV PRN; +DIATRIZOATE MEGLUM/SODIUM 37% 120 ML (GASTROGRAFIN) PO ONE; +IOHEXOL 350 MG/ML 100 ML (OMNIPAQUE 350) VIAL IV ONE; +NS 100 ML (IVPB) BAG IV ONE
--- NOTE | 2017-05-21 16:00 | Diagnostic Imaging Report ---
PROCEDURE: CT abdomen and pelvis with contrast. TECHNIQUE: Multiple contiguous axial images were obtained through the abdomen and pelvis after administration of intravenous contrast. 75 mL of Omnipaque 350 was given intravenously. Also, the study is done with rectal contrast with prone and supine imaging. INDICATION: Anemia. Abdominal pain. FINDINGS: The lung bases demonstrate no significant abnormality. The liver has lobulated contour suggestive of chronic liver disease or cirrhosis. The gallbladder is hydropic with no gallbladder wall thickening or calcified stones identified. The spleen, the pancreas, and the adrenal glands appear unremarkable. There is a dilated vein connecting the left renal vein with the SMV probably secondary to portal hypertension. The kidneys have symmetric enhancement. No hydronephrosis. The urinary bladder appears unremarkable. The colon is opacified with rectal contrast with no evidence of obstruction. The appendix appears normal. No suspicious masses are identified. The small bowel loops and the stomach appear grossly unremarkable. The abdominal aorta is normal in caliber. No para-aortic significantly enlarged lymph node is seen. The uterus and adnexa appear grossly unremarkable. No ascites. The osseous structures demonstrate prominent degenerative changes in the lower lumbar spine, SI joints, and in the right hip. IMPRESSION: 1. Lobulated contour of the liver suggestive of cirrhosis with evidence of portal hypertension. No ascites. 2. Hydropic gallbladder with no calcified gallstone or CT evidence of cholecystitis. Dictated by: Dictated on workstation # [id number]
== END ==
LOC: RAD 12:23
PROVIDERS: ATTEND Surgery
DX: K82.1 Hydrops of gallbladder (principal); K76.89 Other specified diseases of liver; D64.9 Anemia, unspecified
CPT/HCPCS: 74177

== ENCOUNTER → 2017-06-14 | Outpatient (CLI) | payer OTHER ==
[~2017-06-14] MED LIST changes: -CATHETER FLUSH 10 ML SYR IV PRN; -DIATRIZOATE MEGLUM/SODIUM 37% 120 ML (GASTROGRAFIN) PO ONE; -IOHEXOL 350 MG/ML 100 ML (OMNIPAQUE 350) VIAL IV ONE; -NS 100 ML (IVPB) BAG IV ONE
== END ==
LOC: LAB 14:39
PROVIDERS: ATTEND Nurse Practitioner Adult Health
DX: D64.89 Other specified anemias (principal); R06.02 Shortness of breath
CPT/HCPCS: 86850; 86870; 86900; 86901; 86902; 86922

== ENCOUNTER → 2017-06-16 | Outpatient (RCR) | payer OTHER ==
[2017-03-18 13:26] LABS: BASOPHILS # (AUTO) 0.1 10^3/uL (0.0-0.1); BASOPHILS % (AUTO) 1 % (0-10); EOSINOPHILS # (AUTO) 0.4 10^3/uL (0.0-0.3); EOSINOPHILS % (AUTO) 7 % (0-10); HEMATOCRIT 31 % (35-52); LYMPHOCYTES # (AUTO) 1.2 X 10^3 (1.0-4.0); LYMPHOCYTES % (AUTO) 24 % (12-44); MEAN CORPUSCULAR HEMOGLOBIN 30 PG (25-34); MEAN CORPUSCULAR HGB CONC 32 G/DL (32-36); MEAN CORPUSCULAR VOLUME 94 FL (80-99); MEAN PLATELET VOLUME 9.8 FL (7.4-10.4); MONOCYTES # (AUTO) 0.4 X 10^3 (0.0-1.0); MONOCYTES % (AUTO) 9 % (0-12); NEUTROPHILS # (AUTO) 3.1 X 10^3 (1.8-7.8); NEUTROPHILS % (AUTO) 60 % (42-75); PLATELET COUNT 142 10^3/uL (130-400); RED CELL DISTRIBUTION WIDTH 13.3 % (10.0-14.5); WHITE BLOOD COUNT 5.2 10^3/uL (4.3-11.0)
[2017-04-01 12:26] LABS: BASOPHILS % (AUTO) 1 % (0-10); EOSINOPHILS # (AUTO) 0.3 10^3/uL (0.0-0.3); EOSINOPHILS % (AUTO) 6 % (0-10); HEMATOCRIT 32 % (35-52); HEMOGLOBIN 10.3 G/DL (11.5-16.0); LYMPHOCYTES # (AUTO) 1.3 X 10^3 (1.0-4.0); LYMPHOCYTES % (AUTO) 24 % (12-44); MEAN CORPUSCULAR HEMOGLOBIN 30 PG (25-34); MEAN CORPUSCULAR HGB CONC 32 G/DL (32-36); MEAN CORPUSCULAR VOLUME 93 FL (80-99); MONOCYTES # (AUTO) 0.4 X 10^3 (0.0-1.0); MONOCYTES % (AUTO) 7 % (0-12); NEUTROPHILS # (AUTO) 3.4 X 10^3 (1.8-7.8); NEUTROPHILS % (AUTO) 62 % (42-75); PLATELET COUNT 156 10^3/uL (130-400); RED BLOOD COUNT 3.45 10^6/uL (4.35-5.85); RED CELL DISTRIBUTION WIDTH 13.3 % (10.0-14.5); WHITE BLOOD COUNT 5.5 10^3/uL (4.3-11.0)
[2017-04-01 12:54] LABS: ALBUMIN 3.9 GM/DL (3.2-4.5); BILIRUBIN,TOTAL 0.5 MG/DL (0.1-1.0); CALCIUM 10.1 MG/DL (8.5-10.1); CREATININE SERUM 1.09 MG/DL (0.60-1.30); POTASSIUM 4.6 MMOL/L (3.6-5.0)
[2017-05-12 15:29] LABS: BASOPHILS % (AUTO) 0 % (0-10); EOSINOPHILS # (AUTO) 0.2 10^3/uL (0.0-0.3); EOSINOPHILS % (AUTO) 4 % (0-10); HEMATOCRIT 26 % (35-52); HEMOGLOBIN 8.2 G/DL (11.5-16.0); LYMPHOCYTES # (AUTO) 1.3 X 10^3 (1.0-4.0); LYMPHOCYTES % (AUTO) 22 % (12-44); MEAN CORPUSCULAR HEMOGLOBIN 32 PG (25-34); MEAN CORPUSCULAR HGB CONC 32 G/DL (32-36); MEAN CORPUSCULAR VOLUME 99 FL (80-99); MEAN PLATELET VOLUME 10.1 FL (7.4-10.4); MONOCYTES # (AUTO) 0.5 X 10^3 (0.0-1.0); MONOCYTES % (AUTO) 8 % (0-12); NEUTROPHILS # (AUTO) 4.1 X 10^3 (1.8-7.8); NEUTROPHILS % (AUTO) 66 % (42-75); PLATELET COUNT 180 10^3/uL (130-400); RED BLOOD COUNT 2.59 10^6/uL (4.35-5.85); RED CELL DISTRIBUTION WIDTH 14.3 % (10.0-14.5); WHITE BLOOD COUNT 6.2 10^3/uL (4.3-11.0)
[2017-05-12 15:51] LABS: ALBUMIN 3.8 GM/DL (3.2-4.5); BILIRUBIN,TOTAL 0.5 MG/DL (0.1-1.0); CALCIUM 9.3 MG/DL (8.5-10.1); CREATININE SERUM 1.24 MG/DL (0.60-1.30); POTASSIUM 4.6 MMOL/L (3.6-5.0); TOTAL PROTEIN 7.5 GM/DL (6.4-8.2)
[2017-05-26 16:34] LABS: BASOPHILS % (AUTO) 1 % (0-10); EOSINOPHILS # (AUTO) 0.3 10^3/uL (0.0-0.3); EOSINOPHILS % (AUTO) 5 % (0-10); HEMATOCRIT 22 % (35-52); LYMPHOCYTES # (AUTO) 1.3 X 10^3 (1.0-4.0); LYMPHOCYTES % (AUTO) 22 % (12-44); MEAN CORPUSCULAR HEMOGLOBIN 31 PG (25-34); MEAN CORPUSCULAR HGB CONC 31 G/DL (32-36); MEAN CORPUSCULAR VOLUME 100 FL (80-99); MEAN PLATELET VOLUME 10.3 FL (7.4-10.4); MONOCYTES # (AUTO) 0.5 X 10^3 (0.0-1.0); MONOCYTES % (AUTO) 9 % (0-12); NEUTROPHILS # (AUTO) 3.8 X 10^3 (1.8-7.8); NEUTROPHILS % (AUTO) 63 % (42-75); PLATELET COUNT 192 10^3/uL (130-400); RED BLOOD COUNT 2.22 10^6/uL (4.35-5.85); RED CELL DISTRIBUTION WIDTH 13.7 % (10.0-14.5)
[2017-05-26 16:39] LABS: HEMOGLOBIN 6.9 G/DL (11.5-16.0)
[2017-06-10 11:58] LABS: ABSOLUTE RETIC # 128 10e9/L (24-90); BASOPHILS % (AUTO) 0 % (0-10); EOSINOPHILS # (AUTO) 0.3 10^3/uL (0.0-0.3); EOSINOPHILS % (AUTO) 6 % (0-10); HEMATOCRIT 25 % (35-52); HEMOGLOBIN 7.4 G/DL (11.5-16.0); LYMPHOCYTES # (AUTO) 1.1 X 10^3 (1.0-4.0); LYMPHOCYTES % (AUTO) 21 % (12-44); MEAN CORPUSCULAR HEMOGLOBIN 30 PG (25-34); MEAN CORPUSCULAR HGB CONC 30 G/DL (32-36); MEAN CORPUSCULAR VOLUME 101 FL (80-99); MEAN PLATELET VOLUME 9.6 FL (7.4-10.4); MONOCYTES # (AUTO) 0.4 X 10^3 (0.0-1.0); MONOCYTES % (AUTO) 7 % (0-12); NEUTROPHILS # (AUTO) 3.5 X 10^3 (1.8-7.8); NEUTROPHILS % (AUTO) 66 % (42-75); PLATELET COUNT 162 10^3/uL (130-400); RED BLOOD COUNT 2.45 10^6/uL (4.35-5.85); RED CELL DISTRIBUTION WIDTH 14.8 % (10.0-14.5); RETICULOCYTE % 5.21 % (0.50-2.40); WHITE BLOOD COUNT 5.4 10^3/uL (4.3-11.0)
[2017-06-10 12:22] LABS: ALBUMIN 3.5 GM/DL (3.2-4.5); BILIRUBIN,TOTAL 0.7 MG/DL (0.1-1.0); CALCIUM 9.1 MG/DL (8.5-10.1); CREATININE SERUM 1.13 MG/DL (0.60-1.30); POTASSIUM 4.7 MMOL/L (3.6-5.0); TOTAL PROTEIN 7.1 GM/DL (6.4-8.2)
[~2017-06-16] MED LIST changes: +ACETAMINOPHEN 500 MG TAB (TYLENOL) CANCER CTR ONE; +CYANOCOBALAMIN INJ 1000 MCG/ML (CANCER CENTER) ONE; +FERRIC CARBOXYMALTOSE (CANCER) 750 MG in NS (IVPB) CANCER CENTER 250 ML IV SCH; +NS (IVPB) CANCER CENTER 250 ML ONE; +NS IV 500 ML (CANCER CENTER) 500 ML ONE
== END | disposition home or self-care (01) ==
LOC: ONC 03-18 13:05
PROVIDERS: ATTEND Internal Medicine Hematology & Oncology
DX: D64.9 Anemia, unspecified (principal)
CPT/HCPCS: 36415; 36430; 80053; 82728; 85025; 85045; 86850; 86870; 86900; 86901; 86902; 86922; 96365; 96372; 99213

== ENCOUNTER 2017-07-01 12:12 | Outpatient (RCR) | payer OTHER ==
[~2017-07-01 12:12] MED LIST changes: -ACETAMINOPHEN 500 MG TAB (TYLENOL) CANCER CTR ONE; -CYANOCOBALAMIN INJ 1000 MCG/ML (CANCER CENTER) ONE; -NS (IVPB) CANCER CENTER 250 ML ONE; -NS IV 500 ML (CANCER CENTER) 500 ML ONE
[2017-07-01 13:04] LABS: BASOPHILS % (AUTO) 0 % (0-10); EOSINOPHILS # (AUTO) 0.3 10^3/uL (0.0-0.3); EOSINOPHILS % (AUTO) 6 % (0-10); HEMATOCRIT 25 % (35-52); HEMOGLOBIN 7.8 G/DL (11.5-16.0); LYMPHOCYTES # (AUTO) 0.9 X 10^3 (1.0-4.0); LYMPHOCYTES % (AUTO) 18 % (12-44); MEAN CORPUSCULAR HEMOGLOBIN 32 PG (25-34); MEAN CORPUSCULAR HGB CONC 32 G/DL (32-36); MEAN CORPUSCULAR VOLUME 101 FL (80-99); MEAN PLATELET VOLUME 9.8 FL (7.4-10.4); MONOCYTES # (AUTO) 0.4 X 10^3 (0.0-1.0); MONOCYTES % (AUTO) 8 % (0-12); NEUTROPHILS # (AUTO) 3.4 X 10^3 (1.8-7.8); NEUTROPHILS % (AUTO) 68 % (42-75); PLATELET COUNT 165 10^3/uL (130-400); RED BLOOD COUNT 2.45 10^6/uL (4.35-5.85); WHITE BLOOD COUNT 5.1 10^3/uL (4.3-11.0)
== END 2017-07-07 09:04 | disposition home or self-care (01) ==
LOC: ONC 12:12
PROVIDERS: ATTEND Internal Medicine Hematology & Oncology
DX: D50.9 Iron deficiency anemia, unspecified (principal); I25.10 Atherosclerotic heart disease of native coronary artery without angina pectoris; E03.9 Hypothyroidism, unspecified; I12.9 Hypertensive chronic kidney disease with stage 1 through stage 4 chronic kidney disease, or unspecified chronic kidney disease; N18.3 Chronic kidney disease, stage 3 (moderate); E11.22 Type 2 diabetes mellitus with diabetic chronic kidney disease; I48.91 Unspecified atrial fibrillation; Z79.899 Other long term (current) drug therapy
CPT/HCPCS: 85025; 96365

== ENCOUNTER 2017-07-17 14:09 | Outpatient (RCR) | payer OTHER ==
[2017-07-07 09:35] LABS: BASOPHILS % (AUTO) 0 % (0-10); EOSINOPHILS # (AUTO) 0.4 10^3/uL (0.0-0.3); EOSINOPHILS % (AUTO) 6 % (0-10); HEMATOCRIT 22 % (35-52); LYMPHOCYTES # (AUTO) 1.3 X 10^3 (1.0-4.0); LYMPHOCYTES % (AUTO) 22 % (12-44); MEAN CORPUSCULAR HEMOGLOBIN 33 PG (25-34); MEAN CORPUSCULAR HGB CONC 31 G/DL (32-36); MEAN CORPUSCULAR VOLUME 105 FL (80-99); MEAN PLATELET VOLUME 9.8 FL (7.4-10.4); MONOCYTES # (AUTO) 0.5 X 10^3 (0.0-1.0); MONOCYTES % (AUTO) 8 % (0-12); NEUTROPHILS # (AUTO) 3.8 X 10^3 (1.8-7.8); NEUTROPHILS % (AUTO) 64 % (42-75); PLATELET COUNT 168 10^3/uL (130-400); RED BLOOD COUNT 2.11 10^6/uL (4.35-5.85); RED CELL DISTRIBUTION WIDTH 16.3 % (10.0-14.5)
[2017-07-07 09:40] LABS: HEMOGLOBIN 6.9 G/DL (11.5-16.0)
[2017-07-14 14:04] LABS: ABSOLUTE RETIC # 127 10e9/L (24-90); BASOPHILS % (AUTO) 0 % (0-10); EOSINOPHILS # (AUTO) 0.3 10^3/uL (0.0-0.3); EOSINOPHILS % (AUTO) 6 % (0-10); HEMATOCRIT 23 % (35-52); HEMOGLOBIN 7.2 G/DL (11.5-16.0); LYMPHOCYTES % (AUTO) 20 % (12-44); MEAN CORPUSCULAR HEMOGLOBIN 32 PG (25-34); MEAN CORPUSCULAR HGB CONC 31 G/DL (32-36); MEAN CORPUSCULAR VOLUME 101 FL (80-99); MEAN PLATELET VOLUME 9.9 FL (7.4-10.4); MONOCYTES # (AUTO) 0.4 X 10^3 (0.0-1.0); MONOCYTES % (AUTO) 8 % (0-12); NEUTROPHILS # (AUTO) 3.4 X 10^3 (1.8-7.8); NEUTROPHILS % (AUTO) 66 % (42-75); PLATELET COUNT 154 10^3/uL (130-400); RED BLOOD COUNT 2.27 10^6/uL (4.35-5.85); RED CELL DISTRIBUTION WIDTH 15.5 % (10.0-14.5); RETICULOCYTE % 5.58 % (0.50-2.40); WHITE BLOOD COUNT 5.1 10^3/uL (4.3-11.0)
[2017-07-14 14:27] LABS: ALBUMIN 3.4 GM/DL (3.2-4.5); BILIRUBIN,TOTAL 0.5 MG/DL (0.1-1.0); CALCIUM 9.4 MG/DL (8.5-10.1); CREATININE SERUM 1.02 MG/DL (0.60-1.30); POTASSIUM 4.3 MMOL/L (3.6-5.0); TOTAL PROTEIN 6.8 GM/DL (6.4-8.2)
[~2017-07-17 14:09] MED LIST changes: -FERRIC CARBOXYMALTOSE (CANCER) 750 MG in NS (IVPB) CANCER CENTER 250 ML IV SCH; +MIDAZOLAM 2 MG/2 ML (VERSED) VIAL ONE; +NS IV 500 ML (CANCER CENTER) 500 ML ONE; +PROPOFOL INJECTION 50 ML IV ONE
[2017-07-17 14:19] LABS: BASOPHILS % (AUTO) 1 % (0-10); EOSINOPHILS # (AUTO) 0.4 10^3/uL (0.0-0.3); EOSINOPHILS % (AUTO) 6 % (0-10); HEMATOCRIT 28 % (35-52); LYMPHOCYTES # (AUTO) 1.3 X 10^3 (1.0-4.0); LYMPHOCYTES % (AUTO) 22 % (12-44); MEAN CORPUSCULAR HEMOGLOBIN 32 PG (25-34); MEAN CORPUSCULAR HGB CONC 32 G/DL (32-36); MEAN CORPUSCULAR VOLUME 100 FL (80-99); MEAN PLATELET VOLUME 9.9 FL (7.4-10.4); MONOCYTES # (AUTO) 0.5 X 10^3 (0.0-1.0); MONOCYTES % (AUTO) 9 % (0-12); NEUTROPHILS # (AUTO) 3.7 X 10^3 (1.8-7.8); NEUTROPHILS % (AUTO) 62 % (42-75); PLATELET COUNT 162 10^3/uL (130-400); RED CELL DISTRIBUTION WIDTH 16.1 % (10.0-14.5); WHITE BLOOD COUNT 5.9 10^3/uL (4.3-11.0)
== END 2017-07-28 10:19 | disposition home or self-care (01) ==
LOC: ONC 14:09
PROVIDERS: ATTEND Internal Medicine Hematology & Oncology
DX: D50.9 Iron deficiency anemia, unspecified (principal); I25.10 Atherosclerotic heart disease of native coronary artery without angina pectoris; E03.9 Hypothyroidism, unspecified; I12.9 Hypertensive chronic kidney disease with stage 1 through stage 4 chronic kidney disease, or unspecified chronic kidney disease; N18.3 Chronic kidney disease, stage 3 (moderate); E11.22 Type 2 diabetes mellitus with diabetic chronic kidney disease; I48.91 Unspecified atrial fibrillation; Z79.899 Other long term (current) drug therapy
CPT/HCPCS: 36415; 36430; 80053; 82728; 83090; 83921; 84443; 85025; 85045; 86850; 86870; 86900; 86901; 86902; 86922; 99213

== ENCOUNTER 2017-09-12 20:48 | Observation (INO) | payer OTHER ==
[~2017-09-12] VITALS: Ht 162.6 cm; Wt 118.0 kg
[~2017-09-12 20:48] MED LIST changes: -MIDAZOLAM 2 MG/2 ML (VERSED) VIAL ONE; -NS IV 500 ML (CANCER CENTER) 500 ML ONE; -PROPOFOL INJECTION 50 ML IV ONE
[2017-09-12] MEDS ORDERED: ASPIRIN 81 MG CHEW (CHILDREN'S ASA) PO ONE (21:00)
[2017-09-12 21:10] LABS: BASOPHILS % (AUTO) 0 % (0-10); EOSINOPHILS # (AUTO) 0.4 10^3/uL (0.0-0.3); EOSINOPHILS % (AUTO) 5 % (0-10); HEMATOCRIT 26 % (35-52); HEMOGLOBIN 8.1 G/DL (11.5-16.0); LYMPHOCYTES # (AUTO) 1.3 X 10^3 (1.0-4.0); LYMPHOCYTES % (AUTO) 18 % (12-44); MEAN CORPUSCULAR HEMOGLOBIN 30 PG (25-34); MEAN CORPUSCULAR HGB CONC 31 G/DL (32-36); MEAN CORPUSCULAR VOLUME 97 FL (80-99); MONOCYTES # (AUTO) 0.5 X 10^3 (0.0-1.0); MONOCYTES % (AUTO) 8 % (0-12); NEUTROPHILS # (AUTO) 4.8 X 10^3 (1.8-7.8); NEUTROPHILS % (AUTO) 69 % (42-75); PLATELET COUNT 159 10^3/uL (130-400); RED BLOOD COUNT 2.67 10^6/uL (4.35-5.85); RED CELL DISTRIBUTION WIDTH 16.1 % (10.0-14.5)
--- NOTE | 2017-09-12 21:23 | ED Chest Pain ---
General Chief Complaint: Chest Pain Stated Complaint: CHEST/ARM PAIN Nursing Triage Note: PT TO ED 2 W/ C/O CHEST PAIN ONSET THIS AM, NONSPECIFIC TIME, RADIATING TO NECK , BACK, SHOULDER, ARM. STATES SHE THINKS SHE NEEDS BLOOD Nursing Sepsis Screen: No Definite Risk Source: patient Exam Limitations: no limitations History of Present Illness Date Seen by Provider: Sep 12, 2017 Time Seen by Provider: 20:50 Initial Comments Here with left-sided neck, chest, shoulder and arm pain. Started this morning. Associated with shortness of breath and fast heart rate. Patient has history of A. fib with paroxysmal as well as history of blood disorder or anemia. Reports that she had hemoglobin is weak in the sevens and she believes that she needs blood. Denies nausea, vomiting or diarrhea. Does report shortness of air and sweating Timing/Duration: 12 hours Severity/Quality: moderate, aching, pressure Location: central, shoulder Radiation: arms, neck Activities at Onset: none Prior CP/Workup: cardiac cath Modifying Factors: improves with oxygen, improves with rest ASA po ATTORNEY LAWYER: No NTG SL ATTORNEY LAWYER: No Associated Symptoms: No abdominal pain, No back pain, diaphoresis, No edema, fatigue, No fever/chills, No nausea/vomiting, shortness of breath, weakness Allergies and Home Medications Allergies Coded Allergies: Pseddld-Jwh-Xhd Reductase Inhibitor (Verified Allergy, Intermediate, GI UPSET, N/V, 01/01/17) cefadroxil (Unverified Allergy, Mild, 01/01/17) diltiazem (Verified Allergy, Unknown, mouth burning and swelling, 02/23/17) Home Medications Cetirizine HCl 10 Mg Tablet, 10 MG PO DAILY, (Reported) Glimepiride 2 Mg Tablet, 2 MG PO DAILY, (Reported) Gluc 2Kcl/Chondr/Caty Hy/Hy AC 1 Each Capsule, 1 EACH PO BID, (Reported) Levothyroxine Sodium 150 Mcg Tablet, 150 MCG PO DAILY, (Reported) Metformin HCl 1,000 Mg Tablet, 1,000 MG PO BID, (Reported) Metoprolol Succinate 100 Mg Tab.er.24h, 100 MG PO HS, (Reported) Metoprolol Succinate 50 Mg Tab.er.24h, 50 MG PO AM, (Reported) Nitroglycerin 0.4 Mg Tab.subl, 0.4 MG SL q 5mins x2 doses Prescribed by: JAMES TORRES on 01/31/17 1445 Omeprazole 40 Mg Capsule.dr, 40 MG PO DAILY, (Reported) Pantoprazole Sodium 40 Mg Tablet.dr, 40 MG PO DAILY, (Reported) Promethazine HCl 25 Mg Tablet, 25 MG PO Q6H PRN for NAUSEA/VOMITING-4TH LINE, ( Reported) Sucralfate 1 Gm Tablet, 1 GM PO QID, (Reported) Tramadol HCl 50 Mg Tablet, 50 MG PO TID PRN for PAIN-MODERATE, (Reported) Patient Home Medication List Home Medication List Reviewed: Yes Review of Systems Constitutional: see HPI, No chills, diaphoresis, No fever EENTM: No Symptoms Reported Respiratory: See HPI, Denies Cough, Shortness of Air, SOA With Exertion Cardiovascular: See HPI, Chest Pain, Irregular Heart Rate Gastrointestinal: No Symptoms Reported Genitourinary: No Symptoms Reported Musculoskeletal: see HPI, joint pain, muscle pain Skin: no symptoms reported All Other Systems Reviewed Negative Unless Noted: Yes Past Xodxlqi-Ngdzfd-Jvtdhq Hx Patient Social History Alcohol Use: Denies Use Recreational Drug Use: No Smoking Status: Former Smoker Type Used: Cigarettes Former Smoker, Quit: Jan 01, 1987 Recent Foreign Travel: No Contact w/Someone Who Travel: No Recent Infectious Disease Expo: No Recent Hopitalizations: No Immunizations Up To Date Tetanus Booster (TDap): Unknown PED Vaccines UTD: Yes Date of Pneumonia Vaccine: Jun 23, 2016 Date of Influenza Vaccine: Mar 24, 2017 Seasonal Allergies Seasonal Allergies: Yes Surgeries History of Surgeries: Yes (L ANKLE REPAIR, L KNEE SCOPE X2) Surgeries: Adenoidectomy, Tonsillectomy, Tubal Ligation Respiratory History of Respiratory Disorde: No Currently Using CPAP: No Currently Using BIPAP: No Cardiovascular History of Cardiac Disorders: Yes (CHF, STENT X1) Cardiac Disorders: Atrial Fibrillation, Coronary Artery Disease, Heart Attack, High Cholesterol, Hypertension Neurological History of Neurological Disord: No Reproductive System Hx Reproductive Disorders: No Sexually Transmitted Disease: No HIV/AIDS: No Female Reproductive Disorders: Denies Genitourinary History of Genitourinary Disor: No Genitourinary Disorders: Renal Failure Gastrointestinal History of Gastrointestinal Di: Yes (POSS GI BLEED) Gastrointestinal Disorders: Gastroesophageal Reflux Musculoskeletal History of Musculoskeletal Dis: Yes Musculoskeletal Disorders: Degenerate Disk Disease, Arthritis Endocrine History of Endocrine Disorders: Yes HEENT History of HEENT Disorders: No Loss of Vision: Denies Hearing Impairment: Denies Cancer History of Cancer: No Psychosocial History of Psychiatric Problem: No Integumentary History of Skin or Integumenta: Yes Skin/Integumentary Disorders: Psoriasis Blood Transfusions History of Blood Disorders: Yes (Iron deficiency, states not sure of her diagnosis) Adverse Reaction to a Blood Tr: Yes (Antibody JKA) Reviewed Nursing Assessment Reviewed/Agree w Nursing PMH: Yes Physical Exam Vital Signs Vital Signs - First Documented 09/12/17 20:48 Temp 97.5 Pulse 129 Resp 24 B/P (MAP) 151/76 (101) Pulse Ox 95 O2 Delivery Room Air Capillary Refill : Less Than 3 Seconds General Appearance: WD/WN, Anxious, Mild Distress, Obese HEENT: PERRL/EOMI Neck: Non Tender, Supple Respiratory: Lungs Clear, Normal Breath Sounds Cardiovascular: No Murmur, Tachycardia Gastrointestinal: Non Tender, Soft Extremity: Normal Range of Motion, Non Tender Neurologic/Psychiatric: Alert, Oriented x3 Skin: Normal Color, Warm/Dry Progress/Results/Core Measures Results/Orders Lab Results Laboratory Tests Test 09/12/17 19:55 Range/Units White Blood Count 7.0 4.3-11.0 10^3/uL Red Blood Count 2.67 L 4.35-5.85 10^6/uL Hemoglobin 8.1 L 11.5-16.0 G/DL Hematocrit 26 L 35-52 % Mean Corpuscular Volume 97 80-99 FL Mean Corpuscular Hemoglobin 30 25-34 PG Mean Corpuscular Hemoglobin Concent 31 L 32-36 G/DL Red Cell Distribution Width 16.1 H 10.0-14.5 % Platelet Count 159 130-400 10^3/uL Mean Platelet Volume 10.0 7.4-10.4 FL Neutrophils (%) (Auto) 69 42-75 % Lymphocytes (%) (Auto) 18 12-44 % Monocytes (%) (Auto) 8 0-12 % Eosinophils (%) (Auto) 5 0-10 % Basophils (%) (Auto) 0 0-10 % Neutrophils # (Auto) 4.8 1.8-7.8 X 10^3 Lymphocytes # (Auto) 1.3 1.0-4.0 X 10^3 Monocytes # (Auto) 0.5 0.0-1.0 X 10^3 Eosinophils # (Auto) 0.4 H 0.0-0.3 10^3/uL Basophils # (Auto) 0.0 0.0-0.1 10^3/uL Prothrombin Time 14.0 12.2-14.7 SEC INR Comment 1.1 0.8-1.4 Activated Partial Thromboplast Time 29 24-35 SEC Sodium Level 140 135-145 MMOL/L Potassium Level 4.0 3.6-5.0 MMOL/L Chloride Level 103 98-107 MMOL/L Carbon Dioxide Level 23 21-32 MMOL/L Anion Gap 14 5-14 MMOL/L Blood Urea Nitrogen 19 H 7-18 MG/DL Creatinine 1.50 H 0.60-1.30 MG/DL Estimat Glomerular Filtration Rate 35 BUN/Creatinine Ratio 13 Glucose Level 176 H 70-105 MG/DL Calcium Level 9.6 8.5-10.1 MG/DL Magnesium Level 1.4 L 1.8-2.4 MG/DL Total Bilirubin 0.6 0.1-1.0 MG/DL Aspartate Amino Transf (AST/SGOT) 51 H 5-34 U/L Alanine Aminotransferase (ALT/SGPT) 24 0-55 U/L Alkaline Phosphatase 65 40-136 U/L Myoglobin 52.6 10.0-92.0 NG/ML Troponin I < 0.30 <0.30 NG/ML Total Protein 7.6 6.4-8.2 GM/DL Albumin 3.9 3.2-4.5 GM/DL Amylase Level 59 25-125 U/L Lipase 55 8-78 U/L My Orders Orders - OBEY WHITE MD Cbc With Automated Diff (09/12/17 20:57) Magnesium (09/12/17 20:57) Chest 1 View, Ap/Pa Only (09/12/17 20:57) Ekg Tracing (09/12/17 20:57) Cardiac Profile 1 (09/12/17 20:57) Comprehensive Metabolic Panel (09/12/17 20:57) Myoglobin Serum (09/12/17 20:57) Protime With Inr (09/12/17 20:57) Partial Thromboplastin Time (09/12/17 20:57) O2 (09/12/17 20:57) Monitor-Rhythm Ecg Trace Only (09/12/17 20:57) Lipid Panel (09/13/17 06:00) Aspirin Chewable Tablet (Baby Aspirin Ch (09/12/17 21:00) Saline Lock/Iv-Start (09/12/17 20:57) Lipase (09/12/17 20:57) Amylase (09/12/17 20:57) Metoprolol Tartrate (Ir) Tab (Lopressor (09/12/17 22:00) Medications Given in ED Current Medications Medications Dose Ordered Sig/Roberth Route Start Time Stop Time Status Last Admin Dose Admin Aspirin 324 mg ONCE ONCE PO 09/12/17 21:00 09/12/17 21:01 DC 09/12/17 21:20 324 MG Metoprolol Tartrate 100 mg ONCE ONCE PO 09/12/17 22:00 09/12/17 22:01 DC 09/12/17 22:07 100 MG Vital Signs/I&O Vital Sign - Last 12Hours 09/12/17 09/12/17 20:48 20:48 Temp 97.5 Pulse 129 Resp 24 B/P (MAP) 151/76 (101) Pulse Ox 95 O2 Delivery Room Air Room Air Blood Pressure Mean: 101 Progress Note : Progress Note Seen and evaluated. IV, labs, EKG, chest x-ray, ASA 324 mg by mouth ordered. Monitor patient. 2154: Metoprolol 100 mg by mouth ordered for heart rate remains elevated but is improved from previous. Arrives with heart rate 130s to 140s and now currently 115-116. Labs do not indicate any current acute LA. She does have significant cardiovascular disease that is under evaluation including LAD with blockage that they are holding on at this point due to her other comorbidities. She is higher risk and will need further evaluation. This was discussed with Dr. Kebede at 2156 and he agrees to consult. Patient is under the care of Dr. Torres. 5: I discussed the case with Dr. Marcelino and he accepts patient for admission, observation status for the chest pain. Patient reports that she has a long-term headache problems and would like further evaluation with that. I did discuss that with the admitting physician. 2245: We will order CT scan of the head in the morning to further evaluate the headache problem. She did receive aspirin tonight but I will hold that for further evaluation with the acute specialist in the morning to determine risks versus benefits for aspirin. Admit, observation status. Patient and family agree with plan. ECG Initial ECG Impression Date: Sep 12, 2017 Initial ECG Impression Time: 20:46 Initial ECG Rate: 128 Initial ECG Rhythm: S.Tach Initial ECG Comparisson: Changed Comment Sinus tachycardia with normal axis. No evidence of ST elevation LA. Morphology similar to previous although there appears to be some ST depression in the lateral leads as well as 1 and aVL. This seems to be more pronounced on current EKG as compared to 01/31/17. Interpreted by me. Diagnostic Imaging Diagonstic Imaging: Xray Plain Films/CT/US/NM/MRI: chest Comments [facility]IA [facility]. [place], [place] NAME: YOLETTE PISANO [facility] REC#: [id number] PT STATUS: REG ER : 1955 PHYSICIAN: OBEY WHITE MD ADMIT DATE: 09/12/17/ER Draft Date of Exam:09/12/17 CHEST 1 VIEW, AP/PA ONLY EXAM: CHEST 1 VIEW, AP/PA ONLY INDICATION: Chest pain and weakness. COMPARISON: Chest radiograph 01/31/2017. FINDINGS: Heart size and central pulmonary vascularity at the upper limits of normal, similar to the prior exam. No new focal pulmonary opacity, pleural effusion or pneumothorax. No acute osseous findings. No significant change. IMPRESSION: No acute cardiopulmonary findings. Dictated on workstation # [id number] Dict: 09/12/17 2140 Trans: 09/12/17 2143 [id number] Interpreted by: SHARYN DUBOSE MD Electronically signed by: Departure Communication (Admissions) Time/Spoke to Admitting Phy: 22:15 Time/Spoke to Consulting Phy: 21:57 Impression Impression: Primary Impression: Chest pain Qualified Codes: R07.9 - Chest pain, unspecified Disposition: ADMITTED INPATIENT Condition: Stable Admissions Decision to Admit Reason: Admit from ER (General) Decision to Admit/Date: Sep 12, 2017 Time/Decision to Admit Time: 21:57 Departure-Patient Inst. Referrals: JAMES TORRES MD (PCP/Family) Primary Care Physician OBEY WHITE MD Sep 12, 2017 21:23
[2017-09-12 21:41] LABS: INR 1.1 (0.8-1.4)
--- NOTE | 2017-09-12 21:43 | Diagnostic Imaging Report ---
EXAM: CHEST 1 VIEW, AP/PA ONLY INDICATION: Chest pain and weakness. COMPARISON: Chest radiograph 01/31/2017. FINDINGS: Heart size and central pulmonary vascularity at the upper limits of normal, similar to the prior exam. No new focal pulmonary opacity, pleural effusion or pneumothorax. No acute osseous findings. No significant change. IMPRESSION: No acute cardiopulmonary findings. Dictated by: Dictated on workstation # [id number]
[2017-09-12 21:48] LABS: ALANINE AMINOTRANSFERASE 24 U/L (0-55); ALBUMIN 3.9 GM/DL (3.2-4.5); ALKALINE PHOSPHATASE 65 U/L (40-136); AMYLASE 59 U/L (25-125); BILIRUBIN,TOTAL 0.6 MG/DL (0.1-1.0); BUN/CREATININE RATIO 13; CALCIUM 9.6 MG/DL (8.5-10.1); CARBON DIOXIDE 23 MMOL/L (21-32); CHLORIDE 103 MMOL/L (98-107); GFR ESTIMATED 35; GLUCOSE 176 MG/DL (70-105); LIPASE 55 U/L (8-78); MAGNESIUM 1.4 MG/DL (1.8-2.4); SODIUM 140 MMOL/L (135-145); TOTAL PROTEIN 7.6 GM/DL (6.4-8.2)
[2017-09-12 21:54] LABS: MYOGLOBIN SERUM 52.6 NG/ML (10.0-92.0)
[2017-09-12] MEDS ORDERED: meTOprolol TARTRATE 50 MG (LOPRESSOR) TAB PO ONE (22:00)
[2017-09-12 23:20] VITALS: BP 175/67
[2017-09-12 23:45] VITALS: BP 174/62
[2017-09-12] MEDS ORDERED: NITROGLYCERIN 0.4 MG SL TABS BTL 25'S SL PRN (23:45)
[2017-09-12] MEDS ORDERED: NS IV 1000 ML 1,000 ML IV SCH (23:45)
[2017-09-13] VITALS: BP 180/70
[2017-09-13 02:11] LABS: BASOPHILS % (AUTO) 0 % (0-10); EOSINOPHILS # (AUTO) 0.3 10^3/uL (0.0-0.3); EOSINOPHILS % (AUTO) 5 % (0-10); HEMATOCRIT 25 % (35-52); LYMPHOCYTES # (AUTO) 1.4 X 10^3 (1.0-4.0); LYMPHOCYTES % (AUTO) 20 % (12-44); MEAN CORPUSCULAR HEMOGLOBIN 31 PG (25-34); MEAN CORPUSCULAR HGB CONC 31 G/DL (32-36); MEAN CORPUSCULAR VOLUME 98 FL (80-99); MEAN PLATELET VOLUME 9.6 FL (7.4-10.4); MONOCYTES # (AUTO) 0.5 X 10^3 (0.0-1.0); MONOCYTES % (AUTO) 7 % (0-12); NEUTROPHILS % (AUTO) 68 % (42-75); PLATELET COUNT 167 10^3/uL (130-400); RED BLOOD COUNT 2.59 10^6/uL (4.35-5.85); RED CELL DISTRIBUTION WIDTH 16.1 % (10.0-14.5); WHITE BLOOD COUNT 7.2 10^3/uL (4.3-11.0)
[2017-09-13 02:49] LABS: ALBUMIN 3.7 GM/DL (3.2-4.5); BILIRUBIN,TOTAL 0.5 MG/DL (0.1-1.0); CALCIUM 9.3 MG/DL (8.5-10.1); CREATININE SERUM 1.4 MG/DL (0.60-1.30); POTASSIUM 4.2 MMOL/L (3.6-5.0); TOTAL PROTEIN 7.1 GM/DL (6.4-8.2)
[2017-09-13 02:50] LABS: CHOLESTEROL 200 MG/DL (< 200); HDL CHOLESTEROL 41 MG/DL (40-60); TRIGLYCERIDES 180 MG/DL (<150); VLDL CHOLESTEROL 36 MG/DL (5-40)
[2017-09-13 02:56] LABS: MYOGLOBIN SERUM 80.2 NG/ML (10.0-92.0)
[2017-09-13 04:00] VITALS: BP 143/66
--- OUTSIDE RECORDS SUMMARY | 2017-09-13 05:08 | XMS REPORT ---
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 Active 502980868 Problem Non-insulin dependent type 2 diabetes mellitus E11.9 Active 31726110 Problem History of anemia Z86.2 Active 240677775 Problem Reflux gastritis K29.60 Active 88902243 Problem Paroxysmal atrial fibrillation I48.0 Active 713637622 Problem Persistent atrial fibrillation I48.1 Active 789281756 Problem Angina pectoris syndrome I20.9 Active 581644550 Problem Psoriasis L40.9 Active 2278518 Problem Microcytic anemia D50.9 Active 211488336 ALLERGIES No Information SOCIAL HISTORY Never Assessed PLAN OF CARE VITAL SIGNS MEDICATIONS Medication Instructions Dosage Frequency Start Date End Date Duration Status Mobic 15 mg Orally Once a day 1 tablet 24h Active RESULTS No Results PROCEDURES No [...]
--- OUTSIDE RECORDS SUMMARY | 2017-09-13 05:08 | XMS REPORT ---
Author Author KRISTINE TOMASA [facility] Address [address] [place] [address] Care Team Providers Care News Assignment Editor Name Role Phone TOMASA CARMONA Unavailable PROBLEMS Type Condition ICD9-CM Code XHE29-PR Code Onset Dates Condition Status SNOMED Code Problem Acquired hypothyroidism E03.9 Active 762870067 Problem Persistent atrial fibrillation I48.1 Active 758681853 Problem Angina pectoris syndrome I20.9 Active 484862814 Problem Non-insulin treated type 2 diabetes mellitus E11.9 Active 749820568 Problem Non-intractable cyclical vomiting with nausea G43.A0 Active 92103495 Problem Psoriasis L40.9 Active 0624410 Problem Microcytic anemia D50.9 Active 360668319 Problem Reflux gastritis K29.60 Active 15965292 Problem Paroxysmal atrial fibrillation I48.0 Active 684401740 Problem Non-insulin dependent type 2 diabetes mellitus E11.9 Active 83229536 Problem History of anemia Z86.2 Active 385471794 Problem 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 Active 5244510816381 Problem 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 Active 744540333 Problem Essential hypertension I10 Active 20884022 ALLERGIES No Information ENCOUNTERS Encounter Location Date Diagnosis [facility] [id number] [address] Aug, Non-insulin dependent type 2 diabetes mellitus E11.9 ; Microcytic anemia D50.9 ; Essential hypertension I10 and Acquired hypothyroidism E03.9 [facility] [id number] [place] [address] Jul, [facility] [address] [address] Jul, [facility] [id number] [place] [address] Jun, [place] [id number] [place] [address] May, [place] [address] [address] May, History of anemia Z86.2 [place] [address] [address] May, [place] [address] [address] May, [place] [address] [address] May, Non-insulin treated type 2 diabetes mellitus E11.9 [place] [address] [address] Apr, Abdominal pain, left upper quadrant R10.12 ; Right hand weakness R29.898 ; Essential hypertension I10 and Non-intractable cyclical vomiting with nausea G43.A0 [place] [address] [address] Apr, [place] [address] [address] Apr, Non-insulin treated type 2 diabetes mellitus E11.9 ; Essential hypertension I10 and Acquired hypothyroidism E03.[address] [address] Mar, Encounter for immunization Z23 [place] [address] [address] Mar, [place] [address] [address] Feb, Microcytic anemia D50.9 ; Pain of left great toe M79.675 and Reflux gastritis K29.60 [place] [address] [address] Feb, 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 and Acquired hypothyroidism E03.9 [facility] [id number] [place] [address] Jan, Psoriasis L40.9 ; Paroxysmal atrial fibrillation I48.0 ; Shortness of breath R06.02 and Microcytic anemia D50.9 [facility] [id number] [place] [address] Dec, [facility] [id number] [place] [address] Dec, [place] [id number] [place] [address] Dec, 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 [place] [id number] [place] [address] Nov, Therapeutic drug monitoring Z51.81 ; Essential hypertension I10 ; Microcytic anemia D50.9 and Shortness of breath R06.02 [place] [id number] [place] [address] Nov, Acquired hypothyroidism E03.9 [facility] [id number] [place] [address] October, [facility] [id number] [place] [address] Sep, 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 [facility] [id number] [place] [address] Aug, [facility] [id number] [place] [address] Aug, Essential hypertension I10 [facility] [id number] [place] [address] Jul, Acquired hypothyroidism E03.9 ; Essential hypertension I10 ; Non-insulin treated type 2 diabetes mellitus E11.9 and 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 [facility] [address] [address] Jul, [facility] [address] [address] Jul, Angina pectoris syndrome I20.9 and Essential hypertension I10 [facility] [id number] [address] Jul, [facility] [address] [address] Jun, [facility] [address] [place] [address] May, Abscess L02.91 [place] [address] [place] [address]- [address] Apr, Non-insulin dependent type 2 diabetes mellitus E11.9 ; Essential hypertension I10 ; Acquired hypothyroidism E03.9 ; History of anemia Z86.2 and 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 [place] [address] [address] Apr, 2016 IMMUNIZATIONS No Known Immunizations SOCIAL HISTORY Never Assessed REASON FOR VISIT Controlled Med Refill-tramadol PLAN OF CARE VITAL SIGNS MEDICATIONS Medication Instructions Dosage Frequency Start Date End Date Duration Status Tramadol HCl 50 mg Orally three times daily as needed 1 tablet Active RESULTS No Results PROCEDURES No Known procedures INSTRUCTIONS MEDICATIONS ADMINISTERED No Known Medications MEDICAL (GENERAL) HISTORY Type Description Date Medical [...]
--- OUTSIDE RECORDS SUMMARY | 2017-09-13 05:11 | XMS REPORT | Continuity of Care Document ---
Author Author [facility] Organization [facility] Address Unknown Phone Unavailable Allergies Active Description Code Type Severity Reaction Onset Reported/Identified Relationship to Patient Clinical Status Yes methotrexate [id number] Drug Allergy Unknown N/A 03/24/2014 Yes Nkdufyh-Rmz-Ufv Reductase Inhibitor [id number] Drug Allergy Moderate GI UPSET, N/V 01/01/2017 Yes cefadroxil [id number] Drug Allergy Mild N/A 01/01/2017 Yes diltiazem [id number] Drug Allergy Unknown mouth burning a 02/23/2017 Medications There is no data. Problems Date Dx Coded Attending Type Code Diagnosis Diagnosed By SHIREEN AGARWAL Ot D50.9 IRON DEFICIENCY ANEMIA, UNSPECIFIED SHIREEN AGARWAL Ot E03.9 HYPOTHYROIDISM, UNSPECIFIED SHIREEN AGARWAL Ot 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 SHIREEN AGARWAL Ot I12.9 HYPERTENSIVE CHRONIC KIDNEY DISEASE W ST SHIREEN AGARWAL Ot I25.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[place] CORONARY SHIREEN AGARWAL Ot I48.91 UNSPECIFIED ATRIAL FIBRILLATION SHIREEN AGARWAL Ot N18.3 CHRONIC KIDNEY DISEASE, STAGE 3 (MODERAT SHIREEN AGARWAL Ot Z79.899 OTHER DOUGHNUT FRYER (CURRENT) DRUG THERAPY 05/14/1018 BRANDEN HAIDER MD, Ot D50.9 IRON DEFICIENCY ANEMIA, UNSPECIFIED 05/14/1018 BRANDEN HAIDER MD Ot E03.9 HYPOTHYROIDISM, UNSPECIFIED 05/14/1018 BRANDEN HAIDER MD Ot 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 05/14/1018 BRANDEN HAIDER MD Ot I12.9 HYPERTENSIVE CHRONIC KIDNEY DISEASE W ST 05/14/1018 MELIZA MD, OTERO Ot I25.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[place] CORONARY 05/14/1018 BRANDEN HAIDER MD Ot I48.91 UNSPECIFIED ATRIAL FIBRILLATION 05/14/1018 BRANDEN HAIDER MD Ot N18.3 CHRONIC KIDNEY DISEASE, STAGE 3 (MODERAT 05/14/1018 BRANDEN HAIDER MD Ot Z79.899 OTHER HALF-WAY (CURRENT) DRUG THERAPY 05/22/2010 Ot 250.00 05/22/2010 Ot 272.4 05/22/2010 Ot 401.9 05/22/2010 Ot 414.01 05/22/2010 Ot 427.31 03/02/2014 LINDA GONZALESC, ALI FACP CCDS Ot 244.9 HYPOTHYROIDISM NOS 03/02/2014 LINDA KHOURY FACC, ALI FACP CCDS Ot 250.00 DIAB NALLELY WO COMPL, TYPE II OR UNSPEC TY 03/02/2014 LNIDA KHOURY FACC, ALI FACP CCDS Ot 272.4 HYPERLIPIDEMIA NEC/NOS 03/02/2014 LINDA KHOURY FACC, ALI FACP CCDS Ot 285.9 ANEMIA NOS 03/02/2014 LINDA KHOURY FACC, ALI FACP CCDS Ot 401.9 HYPERTENSION NOS 03/02/2014 LINDA KHOURY FACC, ALI FACP CCDS Ot 414.01 CORONARY ATHEROSCLEROSIS OF [place] CORON 03/02/2014 LINDA KHOURY FACFernanda, ALI FACP CCDS Ot 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 03/02/2014 LINDA KHOURY FACFernanda, ALI FACP CCDS Ot 696.1 OTHER PSORIASIS 03/02/2014 LINDA GONZALESC, ALI FACP CCDS Ot 786.05 SHORTNESS OF BREATH 03/02/2014 LINDA GONZALESC, ALI FACP CCDS Ot 786.59 CHEST PAIN NEC 03/02/2014 LINDA KHOURY FACC, ALI FACP CCDS Ot V45.82 PERCUTANEOUS TRANSLUM CORON ANGIOPLASTY 03/02/2014 LINDA KHOURY FACC, ALI FACP CCDS Ot V58.69 OTH MED,LT,CURRENT USE 03/24/2014 TONIE CRAWFORD MD Ot 211.1 BENIGN NEOPLASM STOMACH 03/24/2014 TONIE CRAWFORD MD Ot 211.3 BENIGN NEOPLASM LG BOWEL 03/24/2014 TONIE CRAWFORD MD Ot 280.9 IRON DEFIC ANEMIA NOS 03/24/2014 TONIE CRAWFORD MD Ot V76.51 SCREEN MAL NEOP-COLON 05/16/2014 ANY, BOBAN N Ot 244.9 HYPOTHYROIDISM NOS 05/16/2014 ANY, BOBAN N Ot 285.9 ANEMIA NOS 05/16/2014 ANY, BOBAN N Ot 414.01 CORONARY ATHEROSCLEROSIS OF [place] CORON 05/16/2014 ANY, BOBAN N Ot 585.3 CHRONIC KIDNEY DISEASE, STAGE III (MODER 05/25/2014 ANY, BOBAN N Ot 244.9 05/25/2014 ANY, BOBAN N Ot 285.9 05/25/2014 ANY, BOBAN N Ot 414.01 05/25/2014 ANY, BOBAN N Ot 585.3 05/31/2014 ANY, BOBAN N Ot 244.9 05/31/2014 ANY, BOBAN N Ot 285.9 05/31/2014 ANY, BOBAN N Ot 414.01 05/31/2014 ANY, BOBAN N Ot 585.3 06/01/2014 ANY, BOBAN N Ot 244.9 06/01/2014 ANY, BOBAN N Ot 285.9 06/01/2014 ANY, BOBAN N Ot 414.01 06/01/2014 ANY, BOBAN N Ot 585.3 06/02/2014 ANY, BOBAN N Ot 244.9 06/02/2014 ANY, BOBAN N Ot 285.9 06/02/2014 ANY, BOBAN N Ot 414.01 06/02/2014 ANY, BOBAN N Ot 585.3 06/05/2014 LINDA KHOURY FACC, ALI FACP CCDS Ot 250.00 06/05/2014 LINDA KHOURY FACC, ALI FACP CCDS Ot 401.9 06/05/2014 LINDA KHOURY FACC, ALI FACP CCDS Ot 427.0 06/05/2014 LINDA KHOURY FACC, ALI FACP CCDS Ot 785.1 07/15/2014 ANY, BOBAN N Ot 244.9 07/15/2014 ANY, BOBAN N Ot 285.9 07/15/2014 ANY, BOBAN N Ot 414.01 07/15/2014 ANY, BOBAN N Ot 585.3 07/28/2014 ANY, BOBAN N Ot 244.9 07/28/2014 ANY, BOBAN N Ot 285.9 07/28/2014 ANY, BOBAN N Ot 414.01 07/28/2014 ANY, BOBAN N Ot 585.3 08/30/2014 ANY, BOBAN N Ot 244.9 HYPOTHYROIDISM NOS 08/30/2014 ANY, BOBAN N Ot 285.9 ANEMIA NOS 08/30/2014 ANY, BOBAN N Ot 414.01 CORONARY ATHEROSCLEROSIS OF [place] CORON 08/30/2014 ANY, BOBAN N Ot 585.3 CHRONIC KIDNEY DISEASE, STAGE III (MODER 09/12/2014 Ot 244.9 09/12/2014 Ot 280.9 09/12/2014 Ot 585.3 09/12/2014 Ot V58.69 09/12/2014 Ot 250.02 09/28/2014 ANY, BOBAN N Ot 244.9 09/28/2014 ANY, BOBAN N Ot 285.9 09/28/2014 ANY, BOBAN N Ot 414.01 09/28/2014 ANY, BOBAN N Ot 585.3 09/28/2014 ANY, BOBAN N Ot 244.9 09/28/2014 ANY, BOBAN N Ot 285.9 09/28/2014 ANY, BOBAN N Ot 414.01 09/28/2014 ANY, BOBAN N Ot 585.3 09/29/2014 ANY, BOBAN N Ot 244.9 09/29/2014 ANY, BOBAN N Ot 285.9 09/29/2014 ANY, BOBAN N Ot 414.01 09/29/2014 ANY, BOBAN N Ot 585.3 10/05/2014 Ot 401.9 10/05/2014 Ot 272.4 10/05/2014 Ot 250.00 10/05/2014 CHICHI RIVAS COMPOSITION FLOOR SETTER Ot 574.20 10/05/2014 ROB, CHICHI Neville COMPOSITION FLOOR SETTER Ot 789.1 10/05/2014 LINDA KHOURY FACC, ALI FACP CCDS Ot 401.9 10/05/2014 LINDA KHOURY FACC, ALI FACP CCDS Ot 414.00 10/05/2014 LINDA KHOURY FACC, ALI FACP CCDS Ot 427.31 10/05/2014 TY KHOURY, TONIE Diaz Ot V72.84 10/05/2014 LINDA KHOURY FACC, ALI FACP CCDS Ot 250.00 10/05/2014 LINDA KHOURY FACC, ALI FACP CCDS Ot 401.9 10/05/2014 LINDA KHOURY FACC, ALI FACP CCDS Ot 427.0 10/05/2014 LINDA KHOURY FACC, ALI FACP CCDS Ot 785.1 10/05/2014 Ot 244.9 10/05/2014 Ot 280.9 10/05/2014 Ot 585.3 10/05/2014 Ot V58.69 10/05/2014 Ot 250.02 10/05/2014 ANY, BOBAN N Ot 244.9 10/05/2014 ANY, BOBAN N Ot 285.9 10/05/2014 ANY, BOBAN N Ot 414.01 10/05/2014 ANY, BOBAN N Ot 585.3 10/05/2014 Ot 401.9 10/05/2014 Ot 272.4 10/05/2014 Ot 250.00 10/05/2014 ROB CHICHI H COMPOSITION FLOOR SETTER Ot 574.20 10/05/2014 CHICHI RIVAS COMPOSITION FLOOR SETTER Ot 789.1 10/05/2014 LINDA KHOURY FACC, ALI FACP CCDS Ot 401.9 10/05/2014 LINDA KHOURY [facility], ALI FACP CCDS Ot 414.00 10/05/2014 LINDA KHOURY [facility], ALI FACP CCDS Ot 427.31 10/05/2014 TY KHOURY, TONIE Diaz Ot V72.84 10/05/2014 LINDA KHOURY FACC, ALI FACP CCDS Ot 250.00 10/05/2014 LINDA KHOURY FACC, ALI FACP CCDS Ot 401.9 10/05/2014 LINDA KHOURY FACC, ALI FACP CCDS Ot 427.0 10/05/2014 LINDA KHOURY FACC, ALI FACP CCDS Ot 785.1 10/05/2014 Ot 244.9 10/05/2014 Ot 280.9 10/05/2014 Ot 585.3 10/05/2014 Ot V58.69 10/05/2014 Ot 250.02 10/05/2014 ANY, BOBAN N Ot 244.9 10/05/2014 ANY, BOBAN N Ot 285.9 10/05/2014 ANY, BOBAN N Ot 414.01 10/05/2014 ANY, BOBAN N Ot 585.3 11/03/2014 HARVEY KHOURY, AHMED S Ot 574.20 11/11/2014 ANY, BOBAN N Ot 244.9 11/11/2014 ANY, BOBAN N Ot 285.9 11/11/2014 ANY, BOBAN N Ot 414.01 11/11/2014 ANY, BOBAN N Ot 585.3 11/27/2014 HARVEY KHOURY, AHMED S Ot 585.2 12/27/2014 ANY, BOBAN N Ot 244.9 HYPOTHYROIDISM NOS 12/27/2014 ANY, BOBAN N Ot 285.9 ANEMIA NOS 12/27/2014 ANY, BOBAN N Ot 414.01 CORONARY ATHEROSCLEROSIS OF [place] CORON 12/27/2014 ANY, BOBAN N Ot 585.3 CHRONIC KIDNEY DISEASE, STAGE III (MODER 03/08/2015 ANY, BOBAN N Ot 244.9 03/08/2015 ANY, BOBAN N Ot 285.9 03/08/2015 ANY, BOBAN N Ot 414.01 03/08/2015 ANY, BOBAN N Ot 585.3 03/08/2015 ANY, BOBAN N Ot 244.9 03/08/2015 ANY, BOBAN N Ot 285.9 03/08/2015 ANY, BOBAN N Ot 414.01 03/08/2015 ANY, BOBAN N Ot 585.3 03/20/2015 ANY, BOBAN N Ot 244.9 03/20/2015 ANY, BOBAN N Ot 285.9 03/20/2015 ANY, BOBAN N Ot 414.01 03/20/2015 ANY, BOBAN N Ot 585.3 03/21/2015 OVI KHOURY, TORI-FRANKIE Ot E03.9 03/21/2015 OVI KHOURY, TORI-FRANKIE Ot E11.65 03/21/2015 OVI KHOURY, TORI-FRANKIE Ot E78.5 03/21/2015 OVI KHOURY, TORI-FRANKIE Ot I10 03/21/2015 OVI KHOURY, TORI-FRANKIE Ot E03.9 03/21/2015 OVI KHOURY, TORI-FRANKIE Ot E11.65 03/21/2015 OVI KHOURY, TORI-FRANKIE Ot E78.5 03/21/2015 OVI KHOURY, TORI-FRANKIE Ot I10 03/22/2015 DIOR MD, TORI-FRANKIE Ot E03.9 03/22/2015 OVI KHOURY, TORI-FRANKIE Ot E11.65 03/22/2015 OVI KHOURY, TORI-FRANKIE Ot E78.5 03/22/2015 OVI KHOURY, TORI-FRANKIE Ot I10 04/02/2015 OVI KHOURY, TORI-FRANKIE Ot E03.9 04/02/2015 OVI KHOURY, TORI-FRANKIE Ot E11.65 04/02/2015 OVI KHOURY, TORI-FRANKIE Ot E78.5 04/02/2015 OVI KHOURY, TORI-FRANKIE Ot I10 04/13/2015 OVI KHOURY, TORI-FRANKIE Ot E03.9 04/13/2015 OVI KHOURY, TORI-FRANKIE Ot E11.9 04/13/2015 OVI KHOURY, TORI-FRANKIE Ot E78.5 04/13/2015 OVI KHOURY, TORI-FRANKIE Ot I10 04/27/2015 ANY, BOBAN N Ot D64.9 04/27/2015 ANY, BOBAN N Ot E03.9 04/27/2015 ANY, BOBAN N Ot E11.9 04/27/2015 ANY, BOBAN N Ot I12.9 04/27/2015 ANY, BOBAN N Ot I25.10 04/27/2015 ANY, BOBAN N Ot I48.91 04/27/2015 ANY, BOBAN N Ot N18.3 04/27/2015 ANY, BOBAN N Ot Z79.899 06/13/2015 ANY, BOBAN N Ot 244.9 HYPOTHYROIDISM NOS 06/13/2015 ANY, BOBAN N Ot 250.00 DIAB NALLELY WO COMPL, TYPE II OR UNSPEC TY 06/13/2015 ANY, BOBAN N Ot 285.9 ANEMIA NOS 06/13/2015 ANY, BOBAN N Ot 427.31 ATRIAL FIBRILLATION 06/13/2015 ANY, BOBAN N Ot 585.3 CHRONIC KIDNEY DISEASE, STAGE III (MODER 06/13/2015 ANY, BOBAN N Ot D64.9 ANEMIA, UNSPECIFIED 06/13/2015 ANY, BOBAN N Ot E03.9 HYPOTHYROIDISM, UNSPECIFIED 06/13/2015 ANY, BOBAN N Ot E11.9 TYPE 2 DIABETES MELLITUS WITHOUT COMPLIC 06/13/2015 ANY, BOBAN N Ot I12.9 HYPERTENSIVE CHRONIC KIDNEY DISEASE W ST 06/13/2015 SHIREEN AGARWAL Ot I25.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[place] CORONARY 06/13/2015 SHIREEN AGARWAL Ot I48.91 UNSPECIFIED ATRIAL FIBRILLATION 06/13/2015 SHIREEN AGARWAL Ot N18.3 CHRONIC KIDNEY DISEASE, STAGE 3 (MODERAT 06/13/2015 SHIREEN AGARWAL Ot V58.69 OTH MED,LT,CURRENT USE 06/13/2015 SHIREEN AGARWAL Ot Z79.899 OTHER HALF-WAY (CURRENT) DRUG THERAPY 09/27/2015 SHIREEN AGARWAL Ot D64.9 09/27/2015 SHIREEN AGARWAL Ot E03.9 09/27/2015 SHIREEN AGARWAL Ot E11.9 09/27/2015 SHIREEN AGARWAL Ot I12.9 09/27/2015 SHIREEN AGARWAL Ot I25.10 09/27/2015 SHIREEN AGARWAL Ot I48.91 09/27/2015 SHIREEN AGARWAL Ot N18.3 09/27/2015 SHIREEN AGARWAL Ot Z79.899 09/27/2015 Ot 401.9 09/27/2015 Ot 272.4 09/27/2015 Ot 250.00 09/27/2015 CHICHI RIVAS COMPOSITION FLOOR SETTER Ot 574.20 09/27/2015 CHICHI RIVAS COMPOSITION FLOOR SETTER Ot 789.1 09/27/2015 LINDA KHOURY FAC, ALI FACP CCDS Ot 401.9 09/27/2015 LINDA KHOURY [facility], ALI FACP CCDS Ot 414.00 09/27/2015 LINDA GONZALES, ALI FACP CCDS Ot 427.31 09/27/2015 TY KHOURY, TONIE Diaz Ot V72.84 09/27/2015 LINDA GONZALES, ALI FACP CCDS Ot 250.00 09/27/2015 LINDA KHOURY FACC, ALI FACP CCDS Ot 401.9 09/27/2015 LINDA KHOURY FACC, ALI FACP CCDS Ot 427.0 09/27/2015 LINDA GONZALES, ALI FACP CCDS Ot 785.1 09/27/2015 Ot 244.9 09/27/2015 Ot 280.9 09/27/2015 Ot 585.3 09/27/2015 Ot V58.69 09/27/2015 Ot 250.02 09/27/2015 HARVEY KHOURY, CLAUDE S Ot 574.20 09/27/2015 HARVEY KHOURY, AHMED S Ot 585.2 09/27/2015 OVI KHOURY, TORI-FRANKIE Ot E03.9 09/27/2015 OVI KHOURY, TORI-FRANKIE Ot E11.65 09/27/2015 OVI KHOURY, TORI-FRANKIE Ot E78.5 09/27/2015 OVI KHOURY, TORI-FRANKIE Ot I10 09/27/2015 OVI KHOURY, TORI-FRANKIE Ot E03.9 09/27/2015 OVI KHOURY, TORI-FRANKIE Ot E11.9 09/27/2015 OVI KHOURY, TORI-FRANKIE Ot E78.5 09/27/2015 OVI KHOURY, TORI-FRANKIE Ot I10 09/27/2015 ANY, BOBAN N Ot D64.9 09/27/2015 ANY, BOBAN N Ot E03.9 09/27/2015 ANY, BOBAN N Ot E11.9 09/27/2015 ANY, BOBAN N Ot I12.9 09/27/2015 ANY, BOBAN N Ot I25.10 09/27/2015 ANY, BOBAN N Ot I48.91 09/27/2015 ANY, BOBAN N Ot N18.3 09/27/2015 ANY, BOBAN N Ot Z79.899 10/09/2015 ANY, BOBAN N Ot D64.9 ANEMIA, UNSPECIFIED 10/09/2015 ANY, BOBAN N Ot E03.9 HYPOTHYROIDISM, UNSPECIFIED 10/09/2015 ANY, BOBAN N Ot E11.9 TYPE 2 DIABETES MELLITUS WITHOUT COMPLIC 10/09/2015 ANY, BOBAN N Ot I12.9 HYPERTENSIVE CHRONIC KIDNEY DISEASE W ST 10/09/2015 ANY BOBAN N Ot I25.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[place] CORONARY 10/09/2015 ANY BOBAN N Ot I48.91 UNSPECIFIED ATRIAL FIBRILLATION 10/09/2015 ANY, BOBAN N Ot N18.3 CHRONIC KIDNEY DISEASE, STAGE 3 (MODERAT 10/09/2015 ANY, BOBAN N Ot Z79.899 OTHER DOUGHNUT FRYER (CURRENT) DRUG THERAPY 10/17/2015 ANY, BOBAN N Ot D64.9 ANEMIA, UNSPECIFIED 10/17/2015 ANY, BOBAN N Ot E03.9 HYPOTHYROIDISM, UNSPECIFIED 10/17/2015 ANY, BOBAN N Ot 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 10/17/2015 ANY, BOBAN N Ot I12.9 HYPERTENSIVE CHRONIC KIDNEY DISEASE W ST 10/17/2015 ANY, BOBAN N Ot I25.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[place] CORONARY 10/17/2015 ANY, BOBAN N Ot I48.91 UNSPECIFIED ATRIAL FIBRILLATION 10/17/2015 ANY, BOBAN N Ot N18.3 CHRONIC KIDNEY DISEASE, STAGE 3 (MODERAT 10/17/2015 ANY, BOBAN N Ot Z79.899 OTHER HALF-WAY (CURRENT) DRUG THERAPY 10/19/2015 ANY, BOBAN N Ot D64.9 ANEMIA, UNSPECIFIED 10/19/2015 ANY, BOBAN N Ot E03.9 HYPOTHYROIDISM, UNSPECIFIED 10/19/2015 ANY, BOBAN N Ot 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 10/19/2015 ANY, BOBAN N Ot I12.9 HYPERTENSIVE CHRONIC KIDNEY DISEASE W ST 10/19/2015 ANY, BOBAN N Ot I25.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[place] CORONARY 10/19/2015 ANY, BOBAN N Ot I48.91 UNSPECIFIED ATRIAL FIBRILLATION 10/19/2015 ANY, BOBAN N Ot N18.3 CHRONIC KIDNEY DISEASE, STAGE 3 (MODERAT 10/19/2015 ANY, BOBAN N Ot Z79.899 OTHER DOUGH[place]UT FRYER (CURRENT) DRUG THERAPY 11/16/2015 ANY, BOBAN N Ot D50.9 IRON DEFICIENCY ANEMIA, UNSPECIFIED 11/16/2015 ANY, BOBAN N Ot Z79.899 OTHER DOUGH[place]UT FRY[place] (CURRENT) DRUG THERAPY 12/03/2015 ANY, BOBAN N Ot D50.9 IRON DEFICIENCY ANEMIA, UNSPECIFIED 12/03/2015 ANY, BOBAN N Ot Z79.899 OTHER DOUGHNUT FRYER (CURRENT) DRUG THERAPY 01/03/2016 Ot 272.4 HYPERLIPIDEMIA NEC/NOS 01/03/2016 Ot 250.00 DIAB NALLELY WO COMPL, TYPE II OR UNSPEC TY 01/03/2016 ROB, CHICHI H COMPOSITION FLOOR SETTER Ot 574.20 CHOLELITHIASIS NOS 01/03/2016 CHICHI RIVAS COMPOSITION FLOOR SETTER Ot 789.1 HEPATOMEGALY 01/03/2016 LINDA KHOURY FAC, ALI FACP CCDS Ot 401.9 HYPERTENSION NOS 01/03/2016 LINDA KHOURY FACC, ALI FACP CCDS Ot 414.00 CORON ATHEROSCLER NOS TYPE VESSEL, NATIV 01/03/2016 LINDA KHOURY FACC, ALI FACP CCDS Ot 427.31 ATRIAL FIBRILLATION 01/03/2016 TY KHOURY, TONIE Diaz Ot V72.84 EXAM PRE-OPERATIVE NOS 01/03/2016 LINDA KHOURY FACC, ALI FACP CCDS Ot 250.00 DIAB NALLELY WO COMPL, TYPE II OR UNSPEC TY 01/03/2016 LINDA KHOURY FACC, ALI FACP CCDS Ot 401.9 HYPERTENSION NOS 01/03/2016 LINAD KHOURY FACC, ALI FACP CCDS Ot 427.0 PAROX ATRIAL TACHYCARDIA 01/03/2016 LINDA KHOURY FACC, ALI FACP CCDS Ot 785.1 PALPITATIONS 01/03/2016 Ot 244.9 HYPOTHYROIDISM NOS 01/03/2016 Ot 280.9 IRON DEFIC ANEMIA NOS 01/03/2016 Ot 585.3 CHRONIC KIDNEY DISEASE, STAGE III (MODER 01/03/2016 Ot V58.69 OTH MED,LT, CURRENT USE 01/03/2016 Ot 250.02 DIAB NALLELY WO COMPL, TYPE II OR UNSPEC TY 01/03/2016 HARVEY KHOURY, CLAUDE Clement Ot 574.20 CHOLELITHIASIS NOS 01/03/2016 HARVEY KHOURY, CLAUDE S Ot 585.2 CHRONIC KIDNEY DISEASE, STAGE II (MILD) 01/03/2016 OVI KHOURY, WU Ot E03.9 HYPOTHYROIDISM, UNSPECIFIED 01/03/2016 OVI KHOURY, WU Ot E11.65 TYPE 2 DIABETES MELLITUS WITH HYPERGLYCE 01/03/2016 OVI KHOURY, WU Ot E78.5 HYPERLIPIDEMIA, UNSPECIFIED 01/03/2016 OVI KHOURY, WU Ot I10 ESSENTIAL (PRIMARY) HYPERTENSION 01/03/2016 OVI KHOURY, WU Ot E03.9 HYPOTHYROIDISM, UNSPECIFIED 01/03/2016 OVI KHOURY, WU Ot E11.9 TYPE 2 DIABETES MELLITUS WITHOUT COMPLIC 01/03/2016 OVI KHOURY, WU Ot E78.5 HYPERLIPIDEMIA, UNSPECIFIED 01/03/2016 OVI KHOURY, WU Ot I10 ESSENTIAL (PRIMARY) HYPERTENSION 01/03/2016 ANY, BOBAN N Ot D64.9 ANEMIA, UNSPECIFIED 01/03/2016 ANY, BOBAN N Ot E03.9 HYPOTHYROIDISM, UNSPECIFIED 01/03/2016 ANY, BOBAN N Ot 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 01/03/2016 ANY, BOBAN N Ot I12.9 HYPERTENSIVE CHRONIC KIDNEY DISEASE W ST 01/03/2016 ANY, BOBAN N Ot I25.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[place] CORONARY 01/03/2016 ANY, BOBAN N Ot I48.91 UNSPECIFIED ATRIAL FIBRILLATION 01/03/2016 ANY, BOBAN N Ot N18.3 CHRONIC KIDNEY DISEASE, STAGE 3 (MODERAT 01/03/2016 ANY, BOBAN N Ot Z79.899 OTHER DOUGHNUT FRYER (CURRENT) DRUG THERAPY 01/03/2016 ANY, BOBAN N Ot D50.9 IRON DEFICIENCY ANEMIA, UNSPECIFIED 01/03/2016 ANY, BOBAN N Ot Z79.899 OTHER HALF-WAY (CURRENT) DRUG THERAPY 01/03/2016 ANY, BOBAN N Ot D64.9 ANEMIA, UNSPECIFIED 01/03/2016 ANY, BOBAN N Ot E03.9 HYPOTHYROIDISM, UNSPECIFIED 01/03/2016 ANY, BOBAN N Ot 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 01/03/2016 ANY, BOBAN N Ot I12.9 HYPERTENSIVE CHRONIC KIDNEY DISEASE W ST 01/03/2016 ANY, BOBAN N Ot I25.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[place] CORONARY 01/03/2016 ANY, BOBAN N Ot I48.91 UNSPECIFIED ATRIAL FIBRILLATION 01/03/2016 NAY, BOBAN N Ot N18.3 CHRONIC KIDNEY DISEASE, STAGE 3 (MODERAT 01/03/2016 ANY, BOBAN N Ot Z79.899 OTHER DOUGHNUT FRYER (CURRENT) DRUG THERAPY 01/03/2016 Ot 272.4 HYPERLIPIDEMIA NEC/NOS 01/03/2016 Ot 250.00 DIAB NALLELY WO COMPL, TYPE II OR UNSPEC TY 01/03/2016 CHICHI RIVASP Ot 574.20 CHOLELITHIASIS NOS 01/03/2016 CHICHI RIVAS COMPOSITION FLOOR SETTER Ot 789.1 HEPATOMEGALY 01/03/2016 LINDA KHOURY FACC, ALI FACP CCDS Ot 401.9 HYPERTENSION NOS 01/03/2016 LINDA KHOURY FACC, ALI FACP CCDS Ot 414.00 CORON ATHEROSCLER NOS TYPE VESSEL, NATIV 01/03/2016 LINDA KHOURY FACC, ALI FACP CCDS Ot 427.31 ATRIAL FIBRILLATION 01/03/2016 TY KHOURY, TONIE Diaz Ot V72.84 EXAM PRE-OPERATIVE NOS 01/03/2016 LINDA KHOURY FACC, ALI FACP CCDS Ot 250.00 DIAB NALLELY WO COMPL, TYPE II OR UNSPEC TY 01/03/2016 LINDA KHOURY FACC, ALI FACP CCDS Ot 401.9 HYPERTENSION NOS 01/03/2016 LINDA KHOURY FACC, ALI FACP CCDS Ot 427.0 PAROX ATRIAL TACHYCARDIA 01/03/2016 LINDA KHOURY FACC, ALI FACP CCDS Ot 785.1 PALPITATIONS 01/03/2016 Ot 244.9 HYPOTHYROIDISM NOS 01/03/2016 Ot 280.9 IRON DEFIC ANEMIA NOS 01/03/2016 Ot 585.3 CHRONIC KIDNEY DISEASE, STAGE III (MODER 01/03/2016 Ot V58.69 OTH MED,LT, CURRENT USE 01/03/2016 Ot 250.02 DIAB NALLELY WO COMPL, TYPE II OR UNSPEC TY 01/03/2016 HARVEY KHOURY, CLAUDE Clement Ot 574.20 CHOLELITHIASIS NOS 01/03/2016 HARVEY KHOURY, CLAUDE Clement Ot 585.2 CHRONIC KIDNEY DISEASE, STAGE II (MILD) 01/03/2016 OVI KHOURY, WU Ot E03.9 HYPOTHYROIDISM, UNSPECIFIED 01/03/2016 OVI KHOURY, WU Ot E11.65 TYPE 2 DIABETES MELLITUS WITH HYPERGLYCE 01/03/2016 OVI KHOURY, WU Ot E78.5 HYPERLIPIDEMIA, UNSPECIFIED 01/03/2016 OVI KHOURY, WU Ot I10 ESSENTIAL (PRIMARY) HYPERTENSION 01/03/2016 OVI KHOURY, WU Ot E03.9 HYPOTHYROIDISM, UNSPECIFIED 01/03/2016 OVI KHOURY, WU Ot E11.9 TYPE 2 DIABETES MELLITUS WITHOUT COMPLIC 01/03/2016 OVI KHOURY, WU Ot E78.5 HYPERLIPIDEMIA, UNSPECIFIED 01/03/2016 OVI KHOURY, WU Ot I10 ESSENTIAL (PRIMARY) HYPERTENSION 01/03/2016 SHIREEN AGARWAL N Ot D64.9 ANEMIA, UNSPECIFIED 01/03/2016 SHIREEN AGARWAL N Ot E03.9 HYPOTHYROIDISM, UNSPECIFIED 01/03/2016 SHIREEN AGARWAL N Ot 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 01/03/2016 SHIREEN AGARWAL N Ot I12.9 HYPERTENSIVE CHRONIC KIDNEY DISEASE W ST 01/03/2016 SHIREEN AGARWAL N Ot I25.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[place] CORONARY 01/03/2016 SHIREEN AGARWAL N Ot I48.91 UNSPECIFIED ATRIAL FIBRILLATION 01/03/2016 SHIREEN AGARWAL N Ot N18.3 CHRONIC KIDNEY DISEASE, STAGE 3 (MODERAT 01/03/2016 SHIREEN AGARWAL N Ot Z79.899 OTHER DOUGHNUT [place] (CURRENT) DRUG THERAPY 01/03/2016 SHIREEN AGARWAL N Ot D50.9 IRON DEFICIENCY ANEMIA, UNSPECIFIED 01/03/2016 SHIREEN AGARWAL N Ot Z79.899 OTHER [place] (CURRENT) DRUG THERAPY 01/04/2016 Ot 272.4 HYPERLIPIDEMIA NEC/NOS 01/04/2016 Ot 250.00 DIAB NALLELY WO COMPL, TYPE II OR UNSPEC TY 01/04/2016 CHICHI RIVAS COMPOSITION FLOOR SETTER Ot 574.20 CHOLELITHIASIS NOS 01/04/2016 CHICHI RIVAS COMPOSITION FLOOR SETTER Ot 789.1 HEPATOMEGALY 01/04/2016 LINDA KHOURY FACC, ARNIE FACP CCDS Ot 401.9 HYPERTENSION NOS 01/04/2016 LINDA KHOURY FACC, ALI FACP CCDS Ot 414.00 CORON ATHEROSCLER NOS TYPE VESSEL, NATIV 01/04/2016 LINDA KHOURY FACC, ALI FACP CCDS Ot 427.31 ATRIAL FIBRILLATION 01/04/2016 TY KHOURY, TONIE Diaz Ot V72.84 EXAM PRE-OPERATIVE NOS 01/04/2016 LINDA KHOURY FACC, ALI FACP CCDS Ot 250.00 DIAB NALLELY WO COMPL, TYPE II OR UNSPEC TY 01/04/2016 LINDA KHOURY FACC, ALI FACP CCDS Ot 401.9 HYPERTENSION NOS 01/04/2016 LINDA KHOURY FACC, ALI FACP CCDS Ot 427.0 PAROX ATRIAL TACHYCARDIA 01/04/2016 LINDA KHOURY FACC, ALI FACP CCDS Ot 785.1 PALPITATIONS 01/04/2016 Ot 244.9 HYPOTHYROIDISM NOS 01/04/2016 Ot 280.9 IRON DEFIC ANEMIA NOS 01/04/2016 Ot 585.3 CHRONIC KIDNEY DISEASE, STAGE III (MODER 01/04/2016 Ot V58.69 OTH MED,LT, CURRENT USE 01/04/2016 Ot 250.02 DIAB NALLELY WO COMPL, TYPE II OR UNSPEC TY 01/04/2016 HARVEY KHOURY, CLAUDE S Ot 574.20 CHOLELITHIASIS NOS 01/04/2016 HARVEY KHOURY, CLAUDE S Ot 585.2 CHRONIC KIDNEY DISEASE, STAGE II (MILD) 01/04/2016 OVI KHOURY, WU Ot E03.9 HYPOTHYROIDISM, UNSPECIFIED 01/04/2016 OVI KHOURY, TORI-FRANKIE Ot E11.65 TYPE 2 DIABETES MELLITUS WITH HYPERGLYCE 01/04/2016 OVI KHOURY, TORI-FRANKIE Ot E78.5 HYPERLIPIDEMIA, UNSPECIFIED 01/04/2016 OVI KHOURY, TORI-FRANKIE Ot I10 ESSENTIAL (PRIMARY) HYPERTENSION 01/04/2016 OVI KHOURY, TORI-FRANKIE Ot E03.9 HYPOTHYROIDISM, UNSPECIFIED 01/04/2016 OVI KHOURY, TORI-FRANKIE Ot E11.9 TYPE 2 DIABETES MELLITUS WITHOUT COMPLIC 01/04/2016 OVI KHOURY, TORI-FRANKIE Ot E78.5 HYPERLIPIDEMIA, UNSPECIFIED 01/04/2016 OVI KHOURY, TORI-FRANKIE Ot I10 ESSENTIAL (PRIMARY) HYPERTENSION 01/04/2016 SHIREEN AGARWAL Ot D64.9 ANEMIA, UNSPECIFIED 01/04/2016 SHIREEN AGARWAL Ot E03.9 HYPOTHYROIDISM, UNSPECIFIED 01/04/2016 SHIREEN AGARWAL Ot 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 01/04/2016 SHIREEN AGARWAL Ot I12.9 HYPERTENSIVE CHRONIC KIDNEY DISEASE W ST 01/04/2016 SHIREEN AGARWAL Ot I25.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[place] CORONARY 01/04/2016 SHIREEN AGARWAL Ot I48.91 UNSPECIFIED ATRIAL FIBRILLATION 01/04/2016 SHIREEN AGARWAL Ot N18.3 CHRONIC KIDNEY DISEASE, STAGE 3 (MODERAT 01/04/2016 SHIREEN AGARWAL Ot Z79.899 OTHER [place] (CURRENT) DRUG THERAPY 01/04/2016 SHIREEN AGARWAL Ot D50.9 IRON DEFICIENCY ANEMIA, UNSPECIFIED 01/04/2016 SHIREEN AGARWAL Ot Z79.899 OTHER [place]AY (CURRENT) DRUG THERAPY 01/07/2016 SHIREEN AGARWAL Ot D50.9 IRON DEFICIENCY ANEMIA, UNSPECIFIED 01/07/2016 SHIREEN AGARWAL Ot Z79.899 OTHER [place] (CURRENT) DRUG THERAPY 01/13/2016 SHIREEN AGARWAL Ot D50.9 IRON DEFICIENCY ANEMIA, UNSPECIFIED 01/13/2016 SHIREEN AGARWAL Ot Z79.899 OTHER [place] (CURRENT) DRUG THERAPY 08/05/2016 Ot 250.00 DIAB NALLELY WO COMPL, TYPE II OR UNSPEC TY 08/05/2016 CHICHI RIVAS COMPOSITION FLOOR SETTER Ot 574.20 CHOLELITHIASIS NOS 08/05/2016 CHICHI RIVAS COMPOSITION FLOOR SETTER Ot 789.1 HEPATOMEGALY 08/05/2016 LINDA KHOURY FACC, ALI FACP CCDS Ot 401.9 HYPERTENSION NOS 08/05/2016 LINDA KHOURY FACC, ALI FACP CCDS Ot 414.00 CORON ATHEROSCLER NOS TYPE VESSEL, NATIV 08/05/2016 LINDA KHOURY FACC, ALI FACP CCDS Ot 427.31 ATRIAL FIBRILLATION 08/05/2016 TY KHOURY, TONIE Diaz Ot V72.84 EXAM PRE-OPERATIVE NOS 08/05/2016 LINDA KHOURY FACC, ALI FACP CCDS Ot 250.00 DIAB NALLELY WO COMPL, TYPE II OR UNSPEC TY 08/05/2016 LINDA KHOURY FACC, ALI FACP CCDS Ot 401.9 HYPERTENSION NOS 08/05/2016 LINDA GONZALESC, ALI FACP CCDS Ot 427.0 PAROX ATRIAL TACHYCARDIA 08/05/2016 LINDA GONZALESC, ALI FACP CCDS Ot 785.1 PALPITATIONS 08/05/2016 Ot 244.9 HYPOTHYROIDISM NOS 08/05/2016 Ot 280.9 IRON DEFIC ANEMIA NOS 08/05/2016 Ot 585.3 CHRONIC KIDNEY DISEASE, STAGE III (MODER 08/05/2016 Ot V58.69 OT MED,LT, CURRENT USE 08/05/2016 Ot 250.02 DIAB NALLELY WO COMPL, TYPE II OR UNSPEC TY 08/05/2016 HARVEY KHOURY, CLAUDE Clement Ot 574.20 CHOLELITHIASIS NOS 08/05/2016 HARVEY KHOURY, CLAUDE Clement Ot 585.2 CHRONIC KIDNEY DISEASE, STAGE II (MILD) 08/05/2016 OVI KHOURY, WU Ot E03.9 HYPOTHYROIDISM, UNSPECIFIED 08/05/2016 OVI KHOURY, JAYCOBFRANKIE Ot E11.65 TYPE 2 DIABETES MELLITUS WITH HYPERGLYCE 08/05/2016 OVI KHOURY, FLORIDALMAU Ot E78.5 HYPERLIPIDEMIA, UNSPECIFIED 08/05/2016 OVI KHOURY, TORI-FRANKIE Ot I10 ESSENTIAL (PRIMARY) HYPERTENSION 08/05/2016 OVI KHOURY, TORI-FRANKIE Ot E03.9 HYPOTHYROIDISM, UNSPECIFIED 08/05/2016 OVI KHOURY, TORI-FRANKIE Ot E11.9 TYPE 2 DIABETES MELLITUS WITHOUT COMPLIC 08/05/2016 OVI KHOURY, FLORIDALMAU Ot E78.5 HYPERLIPIDEMIA, UNSPECIFIED 08/05/2016 OVI KHOURY, TORI-FRANKIE Ot I10 ESSENTIAL (PRIMARY) HYPERTENSION 08/05/2016 SHIREEN AGARWAL Ot D64.9 ANEMIA, UNSPECIFIED 08/05/2016 SHIREEN AGARWAL Ot E03.9 HYPOTHYROIDISM, UNSPECIFIED 08/05/2016 SHIREEN AGARWAL N Ot 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 08/05/2016 SHIREEN AGARWAL N Ot I12.9 HYPERTENSIVE CHRONIC KIDNEY DISEASE W ST 08/05/2016 SHIREEN AGARWAL N Ot I25.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[place] CORONARY 08/05/2016 SHIREEN AGARWAL Ot I48.91 UNSPECIFIED ATRIAL FIBRILLATION 08/05/2016 SHIREEN AGARWAL Ot N18.3 CHRONIC KIDNEY DISEASE, STAGE 3 (MODERAT 08/05/2016 SHIREEN AGARWAL N Ot Z79.899 OTHER HALF-WAY (CURRENT) DRUG THERAPY 09/15/2016 SHIREEN AGARWAL N Ot D50.9 IRON DEFICIENCY ANEMIA, UNSPECIFIED 09/15/2016 SHIREEN AGARWAL N Ot E03.9 HYPOTHYROIDISM, UNSPECIFIED 09/15/2016 SHIREEN AGARWAL N Ot 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 09/15/2016 SHIREEN AGARWAL N Ot I12.9 HYPERTENSIVE CHRONIC KIDNEY DISEASE W ST 09/15/2016 SHIREEN AGARWAL N Ot I25.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[place] CORONARY 09/15/2016 SHIREEN AGARWAL Ot I48.91 UNSPECIFIED ATRIAL FIBRILLATION 09/15/2016 SHIREEN AGARWAL Ot N18.3 CHRONIC KIDNEY DISEASE, STAGE 3 (MODERAT 09/15/2016 SHIREEN AGARWAL Ot Z79.899 OTHER DOUGH[place]UT [place] (CURRENT) DRUG THERAPY 09/17/2016 Ot 250.00 DIAB NALLELY WO COMPL, TYPE II OR UNSPEC TY 09/17/2016 ROBCHICHI COMPOSITION FLOOR SETTER Ot 574.20 CHOLELITHIASIS NOS 09/17/2016 CHICHI RIVAS COMPOSITION FLOOR SETTER Ot 789.1 HEPATOMEGALY 09/17/2016 LINDA KHOURY FACC, ALI FACP CCDS Ot 401.9 HYPERTENSION NOS 09/17/2016 LINDA KHOURY FACC, ALI FACP CCDS Ot 414.00 CORON ATHEROSCLER NOS TYPE VESSEL, NATIV 09/17/2016 LINDA KHOURY FACC, ALI FACP CCDS Ot 427.31 ATRIAL FIBRILLATION 09/17/2016 TY KHOURY, TONIE Diaz Ot V72.84 EXAM PRE-OPERATIVE NOS 09/17/2016 LINDA KHOURY FACC, ALI FACP CCDS Ot 250.00 DIAB NALLELY WO COMPL, TYPE II OR UNSPEC TY 09/17/2016 LINDA KHOURY FACC, ALI FACP CCDS Ot 401.9 HYPERTENSION NOS 09/17/2016 LINDA KHOURY FACC, ALI FACP CCDS Ot 427.0 PAROX ATRIAL TACHYCARDIA 09/17/2016 LINDA KHOURY FACC, ALI FACP CCDS Ot 785.1 PALPITATIONS 09/17/2016 Ot 244.9 HYPOTHYROIDISM NOS 09/17/2016 Ot 280.9 IRON DEFIC ANEMIA NOS 09/17/2016 Ot 585.3 CHRONIC KIDNEY DISEASE, STAGE III (MODER 09/17/2016 Ot V58.69 OTH MED,LT, CURRENT USE 09/17/2016 Ot 250.02 DIAB NALLELY WO COMPL, TYPE II OR UNSPEC TY 09/17/2016 HARVEY KHOURY, CLAUDE Clement Ot 574.20 CHOLELITHIASIS NOS 09/17/2016 HARVEY KHOURY, CLAUDE Clement Ot 585.2 CHRONIC KIDNEY DISEASE, STAGE II (MILD) 09/17/2016 OVI KHOURY, WU Ot E03.9 HYPOTHYROIDISM, UNSPECIFIED 09/17/2016 OVI KHOURY, WU Ot E11.65 TYPE 2 DIABETES MELLITUS WITH HYPERGLYCE 09/17/2016 OVI KHOURY, TORI-FRANKIE Ot E78.5 HYPERLIPIDEMIA, UNSPECIFIED 09/17/2016 OVI KHOURY, TORI-FRANKIE Ot I10 ESSENTIAL (PRIMARY) HYPERTENSION 09/17/2016 OVI KHOURY, TORI-FRANKIE Ot E03.9 HYPOTHYROIDISM, UNSPECIFIED 09/17/2016 OVI KHOURY, TORI-FRANKIE Ot E11.9 TYPE 2 DIABETES MELLITUS WITHOUT COMPLIC 09/17/2016 OVI KHOURY, WU Ot E78.5 HYPERLIPIDEMIA, UNSPECIFIED 09/17/2016 OVI KHOURY, TORI-FRANKIE Ot I10 ESSENTIAL (PRIMARY) HYPERTENSION 09/17/2016 ANY, BOBAN N Ot D64.9 ANEMIA, UNSPECIFIED 09/17/2016 ANY, BOBAN N Ot E03.9 HYPOTHYROIDISM, UNSPECIFIED 09/17/2016 ANY, BOBAN N Ot 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 09/17/2016 ANY, BOBAN N Ot I12.9 HYPERTENSIVE CHRONIC KIDNEY DISEASE W ST 09/17/2016 ANY, BOBAN N Ot I25.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[place] CORONARY 09/17/2016 ANY, BOBAN N Ot I48.91 UNSPECIFIED ATRIAL FIBRILLATION 09/17/2016 ANY, BOBAN N Ot N18.3 CHRONIC KIDNEY DISEASE, STAGE 3 (MODERAT 09/17/2016 ANY, BOBAN N Ot Z79.899 OTHER [place] (CURRENT) DRUG THERAPY 09/17/2016 ANY, BOBAN N Ot D50.9 IRON DEFICIENCY ANEMIA, UNSPECIFIED 09/17/2016 ANY, BOBAN N Ot E03.9 HYPOTHYROIDISM, UNSPECIFIED 09/17/2016 ANY, BOBAN N Ot 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 09/17/2016 ANY, BOBAN N Ot I12.9 HYPERTENSIVE CHRONIC KIDNEY DISEASE W ST 09/17/2016 ANY, BOBAN N Ot I25.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[place] CORONARY 09/17/2016 ANY, BOBAN N Ot I48.91 UNSPECIFIED ATRIAL FIBRILLATION 09/17/2016 ANY, BOBAN N Ot N18.3 CHRONIC KIDNEY DISEASE, STAGE 3 (MODERAT 09/17/2016 ANY, BOBAN N Ot Z79.899 OTHER HALF-WAY (CURRENT) DRUG THERAPY 09/17/2016 KIERAN KHOURY, BERNY Champion Ot I25.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[place] CORONARY 09/17/2016 Ot 250.00 DIAB NALLELY WO COMPL, TYPE II OR UNSPEC TY 09/17/2016 CHICHI RIVAS COMPOSITION FLOOR SETTER Ot 574.20 CHOLELITHIASIS NOS 09/17/2016 CHICHI IRVAS COMPOSITION FLOOR SETTER Ot 789.1 HEPATOMEGALY 09/17/2016 LINDA KHOURY FACC, ALI FACP CCDS Ot 401.9 HYPERTENSION NOS 09/17/2016 LINDA KHOURY FACC, ALI FACP CCDS Ot 414.00 CORON ATHEROSCLER NOS TYPE VESSEL, NATIV 09/17/2016 LINDA MD FACC, ALI FACP CCDS Ot 427.31 ATRIAL FIBRILLATION 09/17/2016 TY KHOURY, TONIE Diza Ot V72.84 EXAM PRE-OPERATIVE NOS 09/17/2016 LINDA KHOURY FACC, ALI FACP CCDS Ot 250.00 DIAB NALLELY WO COMPL, TYPE II OR UNSPEC TY 09/17/2016 LINDA KHOURY FACC, ALI FACP CCDS Ot 401.9 HYPERTENSION NOS 09/17/2016 LINDA KHOURY FACC, ALI FACP CCDS Ot 427.0 PAROX ATRIAL TACHYCARDIA 09/17/2016 LINDA KHOURY FACC, ALI FACP CCDS Ot 785.1 PALPITATIONS 09/17/2016 Ot 244.9 HYPOTHYROIDISM NOS 09/17/2016 Ot 280.9 IRON DEFIC ANEMIA NOS 09/17/2016 Ot 585.3 CHRONIC KIDNEY DISEASE, STAGE III (MODER 09/17/2016 Ot V58.69 OTH MED,LT, CURRENT USE 09/17/2016 Ot 250.02 DIAB NALLELY WO COMPL, TYPE II OR UNSPEC TY 09/17/2016 HARVEY KHOURY, CLAUDE Clement Ot 574.20 CHOLELITHIASIS NOS 09/17/2016 CLAUDE GABRIEL MD Ot 585.2 CHRONIC KIDNEY DISEASE, STAGE II (MILD) 09/17/2016 OVI KHOURY, WU Ot E03.9 HYPOTHYROIDISM, UNSPECIFIED 09/17/2016 OVI KHOURY, WU Ot E11.65 TYPE 2 DIABETES MELLITUS WITH HYPERGLYCE 09/17/2016 OVI KHOURY, WU Ot E78.5 HYPERLIPIDEMIA, UNSPECIFIED 09/17/2016 OVI KHOURY, WU Ot I10 ESSENTIAL (PRIMARY) HYPERTENSION 09/17/2016 DIOR MD, TORI-FRANKIE Ot E03.9 HYPOTHYROIDISM, UNSPECIFIED 09/17/2016 OVI KHOURY, TORI-FRANKIE Ot E11.9 TYPE 2 DIABETES MELLITUS WITHOUT COMPLIC 09/17/2016 OVI KHOURY, TORI-FRANKIE Ot E78.5 HYPERLIPIDEMIA, UNSPECIFIED 09/17/2016 OVI KHOURY, TORI-FRANKIE Ot I10 ESSENTIAL (PRIMARY) HYPERTENSION 09/17/2016 ANY, BOBAN N Ot D64.9 ANEMIA, UNSPECIFIED 09/17/2016 ANY, BOBAN N Ot E03.9 HYPOTHYROIDISM, UNSPECIFIED 09/17/2016 ANY, BOBAN N Ot 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 09/17/2016 ANY, BOBAN N Ot I12.9 HYPERTENSIVE CHRONIC KIDNEY DISEASE W ST 09/17/2016 ANY, BOBAN N Ot I25.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[place] CORONARY 09/17/2016 ANY, BOBAN N Ot I48.91 UNSPECIFIED ATRIAL FIBRILLATION 09/17/2016 ANY, BOBAN N Ot N18.3 CHRONIC KIDNEY DISEASE, STAGE 3 (MODERAT 09/17/2016 ANY, BOBAN N Ot Z79.899 OTHER [place] (CURRENT) DRUG THERAPY 09/17/2016 ANY, BOBAN N Ot D50.9 IRON DEFICIENCY ANEMIA, UNSPECIFIED 09/17/2016 ANY, BOBAN N Ot E03.9 HYPOTHYROIDISM, UNSPECIFIED 09/17/2016 ANY, BOBAN N Ot 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 09/17/2016 ANY, BOBAN N Ot I12.9 HYPERTENSIVE CHRONIC KIDNEY DISEASE W ST 09/17/2016 ANY, BOBAN N Ot I25.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[place] CORONARY 09/17/2016 ANY, BOBAN N Ot I48.91 UNSPECIFIED ATRIAL FIBRILLATION 09/17/2016 ANY, BOBAN N Ot N18.3 CHRONIC KIDNEY DISEASE, STAGE 3 (MODERAT 09/17/2016 ANY, BOBAN N Ot Z79.899 OTHER HALF-WAY (CURRENT) DRUG THERAPY 09/17/2016 KIERAN KHOURY, BERNY Champion Ot I25.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[place] CORONARY 09/17/2016 Ot 250.00 DIAB NALLELY WO COMPL, TYPE II OR UNSPEC TY 09/17/2016 CHICHI RIVAS Ot 574.20 CHOLELITHIASIS NOS 09/17/2016 CHICHI RIVAS COMPOSITION FLOOR SETTER Ot 789.1 HEPATOMEGALY 09/17/2016 LINDA KHOURY FAC, ALI FACP CCDS Ot 401.9 HYPERTENSION NOS 09/17/2016 LINDA KHOURY FACC, ALI FACP CCDS Ot 414.00 CORON ATHEROSCLER NOS TYPE VESSEL, NATIV 09/17/2016 LINDA KHOURY FACC, ALI FACP CCDS Ot 427.31 ATRIAL FIBRILLATION 09/17/2016 TY KHOURY, TONIE Diaz Ot V72.84 EXAM PRE-OPERATIVE NOS 09/17/2016 LINDA KHOURY FACC, ALI FACP CCDS Ot 250.00 DIAB NALLELY WO COMPL, TYPE II OR UNSPEC TY 09/17/2016 LINDA KHOURY FACC, ALI FACP CCDS Ot 401.9 HYPERTENSION NOS 09/17/2016 LINDA KHOURY FACC, ALI FACP CCDS Ot 427.0 PAROX ATRIAL TACHYCARDIA 09/17/2016 LINDA KHOURY FACC, ALI FACP CCDS Ot 785.1 PALPITATIONS 09/17/2016 Ot 244.9 HYPOTHYROIDISM NOS 09/17/2016 Ot 280.9 IRON DEFIC ANEMIA NOS 09/17/2016 Ot 585.3 CHRONIC KIDNEY DISEASE, STAGE III (MODER 09/17/2016 Ot V58.69 OTH MED,LT, CURRENT USE 09/17/2016 Ot 250.02 DIAB NALLELY WO COMPL, TYPE II OR UNSPEC TY 09/17/2016 HARVEY KHOURY, CLAUDE Clement Ot 574.20 CHOLELITHIASIS NOS 09/17/2016 HARVEY KHOURY, CLAUDE S Ot 585.2 CHRONIC KIDNEY DISEASE, STAGE II (MILD) 09/17/2016 OVI KHOURY, WU Ot E03.9 HYPOTHYROIDISM, UNSPECIFIED 09/17/2016 OVI KHOURY, WU Ot E11.65 TYPE 2 DIABETES MELLITUS WITH HYPERGLYCE 09/17/2016 WU DIOR MD Ot E78.5 HYPERLIPIDEMIA, UNSPECIFIED 09/17/2016 WU DIOR MD Ot I10 ESSENTIAL (PRIMARY) HYPERTENSION 09/17/2016 WU DIOR MD Ot E03.9 HYPOTHYROIDISM, UNSPECIFIED 09/17/2016 OVI KHOURY, WU Ot E11.9 TYPE 2 DIABETES MELLITUS WITHOUT COMPLIC 09/17/2016 DIOR MD, TORI-FRANKIE Ot E78.5 HYPERLIPIDEMIA, UNSPECIFIED 09/17/2016 OVI KHOURY, WU Ot I10 ESSENTIAL (PRIMARY) HYPERTENSION 09/17/2016 ANY, BOBAN N Ot D64.9 ANEMIA, UNSPECIFIED 09/17/2016 ANY, BOBAN N Ot E03.9 HYPOTHYROIDISM, UNSPECIFIED 09/17/2016 ANY, BOBAN N Ot 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 09/17/2016 ANY, BOBAN N Ot I12.9 HYPERTENSIVE CHRONIC KIDNEY DISEASE W ST 09/17/2016 ANY, BOBAN N Ot I25.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[place] CORONARY 09/17/2016 ANY, BOBAN N Ot I48.91 UNSPECIFIED ATRIAL FIBRILLATION 09/17/2016 ANY, BOBAN N Ot N18.3 CHRONIC KIDNEY DISEASE, STAGE 3 (MODERAT 09/17/2016 ANY, BOBAN N Ot Z79.899 OTHER [place] (CURRENT) DRUG THERAPY 09/17/2016 AYN, BOBAN N Ot D50.9 IRON DEFICIENCY ANEMIA, UNSPECIFIED 09/17/2016 ANY, BOBAN N Ot E03.9 HYPOTHYROIDISM, UNSPECIFIED 09/17/2016 ANY, BOBAN N Ot 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 09/17/2016 ANY, BOBAN N Ot I12.9 HYPERTENSIVE CHRONIC KIDNEY DISEASE W ST 09/17/2016 ANY, BOBAN N Ot I25.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[place] CORONARY 09/17/2016 ANY, BOBAN N Ot I48.91 UNSPECIFIED ATRIAL FIBRILLATION 09/17/2016 ANY, BOBAN N Ot N18.3 CHRONIC KIDNEY DISEASE, STAGE 3 (MODERAT 09/17/2016 ANY, BOBAN N Ot Z79.899 OTHER [place] (CURRENT) DRUG THERAPY 09/17/2016 KIERAN KHOURY, BERNY R Ot I25.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[place] CORONARY 09/17/2016 ANY, BOBAN N Ot D50.9 IRON DEFICIENCY ANEMIA, UNSPECIFIED 09/17/2016 ANY, BOBAN N Ot E03.9 HYPOTHYROIDISM, UNSPECIFIED 09/17/2016 ANY, BOBAN N Ot 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 09/17/2016 ANY, BOBAN N Ot I12.9 HYPERTENSIVE CHRONIC KIDNEY DISEASE W ST 09/17/2016 SHIREEN AGARWAL Ot I25.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[place] CORONARY 09/17/2016 SHIREEN AGARWAL Ot I48.91 UNSPECIFIED ATRIAL FIBRILLATION 09/17/2016 SHIREEN AGARWAL Ot N18.3 CHRONIC KIDNEY DISEASE, STAGE 3 (MODERAT 09/17/2016 SHIREEN AGARWAL Ot Z79.899 OTHER [place] (CURRENT) DRUG THERAPY 09/17/2016 BERNY ALCARAZ MD Ot I25.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[place] CORONARY 09/17/2016 BERNY ALCARAZ MD Ot I25.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[place] CORONARY 10/09/2016 BERNY ALCARAZ MD Ot I25.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[place] CORONARY 10/09/2016 Ot 250.00 DIAB NALLELY WO COMPL, TYPE II OR UNSPEC TY 10/09/2016 CHICHI RIVAS COMPOSITION FLOOR SETTER Ot 574.20 CHOLELITHIASIS NOS 10/09/2016 CHICHI RIVAS COMPOSITION FLOOR SETTER Ot 789.1 HEPATOMEGALY 10/09/2016 LINDA GONZALESC, ALI FACP CCDS Ot 401.9 HYPERTENSION NOS 10/09/2016 LINDA KHOURY FACC, ALI FACP CCDS Ot 414.00 CORON ATHEROSCLER NOS TYPE VESSEL, NATIV 10/09/2016 LINDA KHOURY FACC, ALI FACP CCDS Ot 427.31 ATRIAL FIBRILLATION 10/09/2016 TY KHOURY, TONIE Diaz Ot V72.84 EXAM PRE-OPERATIVE NOS 10/09/2016 LINDA KHOURY FACC, ALI FACP CCDS Ot 250.00 DIAB NALLELY WO COMPL, TYPE II OR UNSPEC TY 10/09/2016 LINDA KHOURY FACC, ALI FACP CCDS Ot 401.9 HYPERTENSION NOS 10/09/2016 LINDA KHOURY FACC, ALI FACP CCDS Ot 427.0 PAROX ATRIAL TACHYCARDIA 10/09/2016 LINDA KHOURY FACC, ALI FACP CCDS Ot 785.1 PALPITATIONS 10/09/2016 Ot 244.9 HYPOTHYROIDISM NOS 10/09/2016 Ot 280.9 IRON DEFIC ANEMIA NOS 10/09/2016 Ot 585.3 CHRONIC KIDNEY DISEASE, STAGE III (MODER 10/09/2016 Ot V58.69 OTH MED,LT, CURRENT USE 10/09/2016 Ot 250.02 DIAB NALLELY WO COMPL, TYPE II OR UNSPEC TY 10/09/2016 HARVEY KHOURY, CLAUDE S Ot 574.20 CHOLELITHIASIS NOS 10/09/2016 HARVEY KHOURY, CLAUDE S Ot 585.2 CHRONIC KIDNEY DISEASE, STAGE II (MILD) 10/09/2016 OVI KHOURY, WU Ot E03.9 HYPOTHYROIDISM, UNSPECIFIED 10/09/2016 OVI KHOURY, FLORIDALMAU Ot E11.65 TYPE 2 DIABETES MELLITUS WITH HYPERGLYCE 10/09/2016 OVI KHOURY, TORI-FRANKIE Ot E78.5 HYPERLIPIDEMIA, UNSPECIFIED 10/09/2016 OVI KHOURY, TORI-FRANKIE Ot I10 ESSENTIAL (PRIMARY) HYPERTENSION 10/09/2016 OVI KHOURY, WU Ot E03.9 HYPOTHYROIDISM, UNSPECIFIED 10/09/2016 OVI KHOURY, TORI-FRANKIE Ot E11.9 TYPE 2 DIABETES MELLITUS WITHOUT COMPLIC 10/09/2016 OVI KHOURY, TORI-FRANKIE Ot E78.5 HYPERLIPIDEMIA, UNSPECIFIED 10/09/2016 OVI KHOURY, TORI-FRANKIE Ot I10 ESSENTIAL (PRIMARY) HYPERTENSION 10/09/2016 SHIREEN AGARWAL N Ot D64.9 ANEMIA, UNSPECIFIED 10/09/2016 SHIREEN AGARWAL N Ot E03.9 HYPOTHYROIDISM, UNSPECIFIED 10/09/2016 SHIREEN AGARWAL N Ot 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 10/09/2016 SHIREEN AGARWAL N Ot I12.9 HYPERTENSIVE CHRONIC KIDNEY DISEASE W ST 10/09/2016 SHIREEN AGARWAL N Ot I25.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[place] CORONARY 10/09/2016 SHIREEN AGARWAL N Ot I48.91 UNSPECIFIED ATRIAL FIBRILLATION 10/09/2016 SHIREEN AGARWAL N Ot N18.3 CHRONIC KIDNEY DISEASE, STAGE 3 (MODERAT 10/09/2016 SHIREEN AGARWAL N Ot Z79.899 OTHER HALF-WAY (CURRENT) DRUG THERAPY 10/09/2016 SHIREEN AGARWAL N Ot D50.9 IRON DEFICIENCY ANEMIA, UNSPECIFIED 10/09/2016 SHIREEN AGARWAL N Ot E03.9 HYPOTHYROIDISM, UNSPECIFIED 10/09/2016 SHIREEN AGARWAL N Ot 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 10/09/2016 SHIREEN AGARWAL N Ot I12.9 HYPERTENSIVE CHRONIC KIDNEY DISEASE W ST 10/09/2016 ANY, BOBAN N Ot I25.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[place] CORONARY 10/09/2016 ANY, BOBAN N Ot I48.91 UNSPECIFIED ATRIAL FIBRILLATION 10/09/2016 ANY, BOBAN N Ot N18.3 CHRONIC KIDNEY DISEASE, STAGE 3 (MODERAT 10/09/2016 ANY, BOBAN N Ot Z79.899 OTHER [place] (CURRENT) DRUG THERAPY 10/09/2016 KIERAN KHOURY, BERNY R Ot I25.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[place] CORONARY 10/09/2016 KIERAN KHOURY, Wei BRANDON Ot I47.1 SUPRAVENTRICULAR TACHYCARDIA 10/09/2016 KIERAN KHOURY, Wei BRANDON Ot I48.91 UNSPECIFIED ATRIAL FIBRILLATION 10/30/2016 KIERAN KHOURY, BERNY R Ot I25.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[place] CORONARY 11/03/2016 ANY BOBAN N Ot D50.9 IRON DEFICIENCY ANEMIA, UNSPECIFIED 11/03/2016 ANY, BOBAN N Ot E03.9 HYPOTHYROIDISM, UNSPECIFIED 11/03/2016 ANY, BOBAN N Ot 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 11/03/2016 ANY, BOBAN N Ot I12.9 HYPERTENSIVE CHRONIC KIDNEY DISEASE W ST 11/03/2016 ANY, BOBAN N Ot I25.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[place] CORONARY 11/03/2016 ANY BOBAN N Ot I48.91 UNSPECIFIED ATRIAL FIBRILLATION 11/03/2016 ANY BOBAN N Ot N18.3 CHRONIC KIDNEY DISEASE, STAGE 3 (MODERAT 11/03/2016 ANY BOBAN N Ot Z79.899 OTHER [place] (CURRENT) DRUG THERAPY 11/04/2016 ANY, BOBAN N Ot D50.9 IRON DEFICIENCY ANEMIA, UNSPECIFIED 11/04/2016 ANY, BOBAN N Ot E03.9 HYPOTHYROIDISM, UNSPECIFIED 11/04/2016 ANY, BOBAN N Ot 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 11/04/2016 ANY, BOBAN N Ot I12.9 HYPERTENSIVE CHRONIC KIDNEY DISEASE W ST 11/04/2016 ANY, BOBAN N Ot I25.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[place] CORONARY 11/04/2016 ANY, BOBAN N Ot I48.91 UNSPECIFIED ATRIAL FIBRILLATION 11/04/2016 ANY, BOBAN N Ot N18.3 CHRONIC KIDNEY DISEASE, STAGE 3 (MODERAT 11/04/2016 ANY, BOBAN N Ot Z79.899 OTHER [place] (CURRENT) DRUG THERAPY 11/17/2016 KIERAN KHOURY, BERNY Champion Ot I25.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[place] CORONARY 11/18/2016 ANY, BOBAN N Ot D50.9 IRON DEFICIENCY ANEMIA, UNSPECIFIED 11/18/2016 ANY, BOBAN N Ot E03.9 HYPOTHYROIDISM, UNSPECIFIED 11/18/2016 ANY, BOBAN N Ot 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 11/18/2016 ANY, BOBAN N Ot I12.9 HYPERTENSIVE CHRONIC KIDNEY DISEASE W ST 11/18/2016 ANY, BOBAN N Ot I25.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[place] CORONARY 11/18/2016 ANY, BOBAN N Ot I48.91 UNSPECIFIED ATRIAL FIBRILLATION 11/18/2016 ANY, BOBAN N Ot N18.3 CHRONIC KIDNEY DISEASE, STAGE 3 (MODERAT 11/18/2016 ANY, BOBAN N Ot Z79.899 OTHER HALF-WAY (CURRENT) DRUG THERAPY 12/10/2016 ANY, BOBAN N Ot D50.9 IRON DEFICIENCY ANEMIA, UNSPECIFIED 12/10/2016 ANY, BOBAN N Ot E03.9 HYPOTHYROIDISM, UNSPECIFIED 12/10/2016 ANY, BOBAN N Ot 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 12/10/2016 ANY, BOBAN N Ot I12.9 HYPERTENSIVE CHRONIC KIDNEY DISEASE W ST 12/10/2016 ANY, BOBAN N Ot I25.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[place] CORONARY 12/10/2016 ANY, BOBAN N Ot I48.91 UNSPECIFIED ATRIAL FIBRILLATION 12/10/2016 ANY, BOBAN N Ot N18.3 CHRONIC KIDNEY DISEASE, STAGE 3 (MODERAT 12/10/2016 ANY, BOBAN N Ot Z79.899 OTHER HALF-WAY (CURRENT) DRUG THERAPY 12/12/2016 ANY, BOBAN N Ot D50.9 IRON DEFICIENCY ANEMIA, UNSPECIFIED 12/12/2016 ANY, BOBAN N Ot E03.9 HYPOTHYROIDISM, UNSPECIFIED 12/12/2016 ANY, BOBAN N Ot 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 12/12/2016 SHIREEN AGARWAL Ot I12.9 HYPERTENSIVE CHRONIC KIDNEY DISEASE W ST 12/12/2016 SHIREEN AGARWAL Ot I25.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[place] CORONARY 12/12/2016 SHIREEN AGARWAL Ot I48.91 UNSPECIFIED ATRIAL FIBRILLATION 12/12/2016 SHIREEN AGARWAL Ot N18.3 CHRONIC KIDNEY DISEASE, STAGE 3 (MODERAT 12/12/2016 SHIREEN AGARWAL Ot Z79.899 OTHER DOUGHNUT FRYER (CURRENT) DRUG THERAPY 12/16/2016 KIERAN KHOURY, Wei BRANDON Ot I47.1 SUPRAVENTRICULAR TACHYCARDIA 12/16/2016 KIERAN KHOURY, Wei BRANDON Ot I48.91 UNSPECIFIED ATRIAL FIBRILLATION 12/20/2016 KIERAN KHOURY, Wei BRANDON Ot I47.1 SUPRAVENTRICULAR TACHYCARDIA 12/20/2016 KIERAN KHOURY, Wei BRANDON Ot I48.91 UNSPECIFIED ATRIAL FIBRILLATION 12/31/2016 Ot 250.00 DIAB NALLELY WO COMPL, TYPE II OR UNSPEC TY 12/31/2016 CHICHI RIVAS COMPOSITION FLOOR SETTER Ot 574.20 CHOLELITHIASIS NOS 12/31/2016 CHICHI RIVAS COMPOSITION FLOOR SETTER Ot 789.1 HEPATOMEGALY 12/31/2016 LINDA KHOURY FACC, ALI FACP CCDS Ot 401.9 HYPERTENSION NOS 12/31/2016 LINDA KHOURY FACC, ALI FACP CCDS Ot 414.00 CORON ATHEROSCLER NOS TYPE VESSEL, NATIV 12/31/2016 LINDA KHOURY FACC, ALI FACP CCDS Ot 427.31 ATRIAL FIBRILLATION 12/31/2016 TY KHOURY, TONIE Diaz Ot V72.84 EXAM PRE-OPERATIVE NOS 12/31/2016 LINDA KHOURY FACC, ALI FACP CCDS Ot 250.00 DIAB NALLELY WO COMPL, TYPE II OR UNSPEC TY 12/31/2016 LINDA KHOURY FACC, ALI FACP CCDS Ot 401.9 HYPERTENSION NOS 12/31/2016 LINDA KHOURY FACC, ALI FACP CCDS Ot 427.0 PAROX ATRIAL TACHYCARDIA 12/31/2016 LINDA KHOURY FACC, ALI FACP CCDS Ot 785.1 PALPITATIONS 12/31/2016 Ot 244.9 HYPOTHYROIDISM NOS 12/31/2016 Ot 280.9 IRON DEFIC ANEMIA NOS 12/31/2016 Ot 585.3 CHRONIC KIDNEY DISEASE, STAGE III (MODER 12/31/2016 Ot V58.69 OTH MED,LT, CURRENT USE 12/31/2016 Ot 250.02 DIAB NALLELY WO COMPL, TYPE II OR UNSPEC TY 12/31/2016 HARVEY KHOURY, CLAUDE S Ot 574.20 CHOLELITHIASIS NOS 12/31/2016 HARVEY KHOURY, CLAUDE S Ot 585.2 CHRONIC KIDNEY DISEASE, STAGE II (MILD) 12/31/2016 OVI KHOURY, TORI-FRANKIE Ot E03.9 HYPOTHYROIDISM, UNSPECIFIED 12/31/2016 OVI KHOURY, TORI-FRANKIE Ot E11.65 TYPE 2 DIABETES MELLITUS WITH HYPERGLYCE 12/31/2016 OVI KHOURY, TORI-FRANKIE Ot E78.5 HYPERLIPIDEMIA, UNSPECIFIED 12/31/2016 OVI KHOURY, TORI-FRANKIE Ot I10 ESSENTIAL (PRIMARY) HYPERTENSION 12/31/2016 OVI KHOURY, TORI-FRANKIE Ot E03.9 HYPOTHYROIDISM, UNSPECIFIED 12/31/2016 OVI KHOURY, TORI-FRANKIE Ot E11.9 TYPE 2 DIABETES MELLITUS WITHOUT COMPLIC 12/31/2016 OVI KHOURY, TORI-FRANKIE Ot E78.5 HYPERLIPIDEMIA, UNSPECIFIED 12/31/2016 OVI KHOURY, TORI-FRANKIE Ot I10 ESSENTIAL (PRIMARY) HYPERTENSION 12/31/2016 SHIREEN AGARWAL Ot D64.9 ANEMIA, UNSPECIFIED 12/31/2016 SHIREEN AGARWAL Ot E03.9 HYPOTHYROIDISM, UNSPECIFIED 12/31/2016 SHIREEN AGARWAL N Ot 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 12/31/2016 SHIREEN AGARWAL Ot I12.9 HYPERTENSIVE CHRONIC KIDNEY DISEASE W ST 12/31/2016 SHIREEN AGARWAL Ot I25.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[place] CORONARY 12/31/2016 SHIREEN AGARWAL Ot I48.91 UNSPECIFIED ATRIAL FIBRILLATION 12/31/2016 SHIREEN AGARWAL Ot N18.3 CHRONIC KIDNEY DISEASE, STAGE 3 (MODERAT 12/31/2016 SHIREEN AGARWAL Ot Z79.899 OTHER DOUGHNUT FRYER (CURRENT) DRUG THERAPY 12/31/2016 KIERAN KHOURY, BERNY Champion Ot I25.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[place] CORONARY 12/31/2016 BERNY ALCARAZ MD Ot I25.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[place] CORONARY 12/31/2016 ANY SHIREEN Narvaez Ot D50.9 IRON DEFICIENCY ANEMIA, UNSPECIFIED 12/31/2016 ANY SHIREEN Narvaez Ot E03.9 HYPOTHYROIDISM, UNSPECIFIED 12/31/2016 ANY SHIREEN N Ot 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 12/31/2016 ANY SHIREEN Narvaez Ot I12.9 HYPERTENSIVE CHRONIC KIDNEY DISEASE W ST 12/31/2016 ANY SHIREEN Narvaez Ot I25.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[place] CORONARY 12/31/2016 ANY SHIREEN N Ot I48.91 UNSPECIFIED ATRIAL FIBRILLATION 12/31/2016 ANY SHIREEN Narvaez Ot N18.3 CHRONIC KIDNEY DISEASE, STAGE 3 (MODERAT 12/31/2016 ANY SHIREEN Narvaez Ot Z79.899 OTHER HALF-WAY (CURRENT) DRUG THERAPY 12/31/2016 KIERAN KHOURY, Wei BRANDON Ot I47.1 SUPRAVENTRICULAR TACHYCARDIA 12/31/2016 KIERAN KHOURY, Wei BRANDON Ot I48.91 UNSPECIFIED ATRIAL FIBRILLATION 01/01/2017 KIERAN KHOURY, Wei BRANDON Ot I47.1 SUPRAVENTRICULAR TACHYCARDIA 01/01/2017 KIERAN KHOURY, Wei BRANDON Ot I48.91 UNSPECIFIED ATRIAL FIBRILLATION 01/01/2017 NWAGWU, MICHAELRE Jasmina SUPERVISOR IN CHARGE Ot D64.9 ANEMIA, UNSPECIFIED 01/01/2017 NWAGWU, ISIDORE O SUPERVISOR IN CHARGE Ot D64.9 ANEMIA, UNSPECIFIED 01/02/2017 SABRINA ROSSI DO Ot D50.9 IRON DEFICIENCY ANEMIA, UNSPECIFIED 01/02/2017 SABRINA ROSSI DO Ot E03.9 HYPOTHYROIDISM, UNSPECIFIED 01/02/2017 SABRINA ROSSI DO Ot 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 01/02/2017 SABRINA ROSSI DO Ot E78.5 HYPERLIPIDEMIA, UNSPECIFIED 01/02/2017 SABRINA ROSSI DO Ot I12.9 HYPERTENSIVE CHRONIC KIDNEY DISEASE W ST 01/02/2017 SABRINA ROSSI DO Ot I25.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[place] CORONARY 01/02/2017 SABRINA ROSSI DO Ot I47.1 SUPRAVENTRICULAR TACHYCARDIA 01/02/2017 SABRINA ROSSI DO Ot I48.91 UNSPECIFIED ATRIAL FIBRILLATION 01/02/2017 SABRINA ROSSI DO Ot K29.70 GASTRITIS, UNSPECIFIED, WITHOUT BLEEDING 01/02/2017 SABRINA ROSSI DO Ot K44.9 DIAPHRAGMATIC HERNIA WITHOUT OBSTRUCTION 01/02/2017 SABRINA ROSSI DO Ot K64.9 UNSPECIFIED HEMORRHOIDS 01/02/2017 SABRINA ROSSI DO Ot N18.3 CHRONIC KIDNEY DISEASE, STAGE 3 (MODERAT 01/02/2017 SABRINA ROSSI DO Ot R19.5 OTHER FECAL ABNORMALITIES 01/02/2017 SABRINA ROSSI DO Ot Z79.01 DOUGHNUT FRYER (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 OF ANTICOAGULANT 01/02/2017 SABRINA ROSSI DO Ot Z79.84 DOUGHNUT FRYER (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 OF ORAL HYPOGLYC 01/02/2017 SABRINA ROSSI DO Ot Z79.899 OTHER DOUGHNUT FRYER (CURRENT) DRUG THERAPY 01/02/2017 SABRINA ROSSI DO Ot Z80.0 FAMILY HISTORY OF MALIGNANT NEOPLASM OF 01/02/2017 SABRINA ROSSI DO Ot Z95.5 PRESENCE OF CORONARY ANGIOPLASTY IMPLANT 01/06/2017 SABRINA ROSSI DO Ot D50.9 IRON DEFICIENCY ANEMIA, UNSPECIFIED 01/06/2017 SABRINA ROSSI DO Ot E03.9 HYPOTHYROIDISM, UNSPECIFIED 01/06/2017 SABRINA ROSSI DO Ot 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 01/06/2017 SABRINA ROSSI DO Ot E78.5 HYPERLIPIDEMIA, UNSPECIFIED 01/06/2017 SABRINA ROSSI DO Ot I12.9 HYPERTENSIVE CHRONIC KIDNEY DISEASE W ST 01/06/2017 SABRINA ROSSI DO Ot I25.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[place] CORONARY 01/06/2017 SABRINA ROSSI DO Ot I47.1 SUPRAVENTRICULAR TACHYCARDIA 01/06/2017 SABRINA ROSSI DO Ot I48.91 UNSPECIFIED ATRIAL FIBRILLATION 01/06/2017 SABRINA ROSSI DO Ot K29.70 GASTRITIS, UNSPECIFIED, WITHOUT BLEEDING 01/06/2017 SABRINA ROSSI DO Ot K44.9 DIAPHRAGMATIC HERNIA WITHOUT OBSTRUCTION 01/06/2017 SABRINA ROSSI DO Ot K64.9 UNSPECIFIED HEMORRHOIDS 01/06/2017 SABRINA ROSSI DO Ot N18.3 CHRONIC KIDNEY DISEASE, STAGE 3 (MODERAT 01/06/2017 SABRINA ROSSI DO Ot R19.5 OTHER FECAL ABNORMALITIES 01/06/2017 SABRINA ROSSI DO Ot Z79.01 HALF-WAY (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 OF ANTICOAGULANT 01/06/2017 SABRINA ROSSI DO Ot Z79.84 DOUGHNUT FRYER (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 OF ORAL HYPOGLYC 01/06/2017 SABRINA ROSSI DO Ot Z79.899 OTHER HALF-WAY (CURRENT) DRUG THERAPY 01/06/2017 SABRINA ROSSI DO Ot Z80.0 FAMILY HISTORY OF MALIGNANT NEOPLASM OF 01/06/2017 SABRINA ROSSI DO Ot Z95.5 PRESENCE OF CORONARY ANGIOPLASTY IMPLANT 01/29/2017 Ot 250.00 DIAB NALLELY WO COMPL, TYPE II OR UNSPEC TY 01/29/2017 CHICHI RIVAS COMPOSITION FLOOR SETTER Ot 574.20 CHOLELITHIASIS NOS 01/29/2017 CHICHI RIVAS COMPOSITION FLOOR SETTER Ot 789.1 HEPATOMEGALY 01/29/2017 LINDA KHOURY FACC, ALI FACP CCDS Ot 401.9 HYPERTENSION NOS 01/29/2017 LINDA KHOURY FACC, ALI FACP CCDS Ot 414.00 CORON ATHEROSCLER NOS TYPE VESSEL, NATIV 01/29/2017 LINDA KHOURY FACC, ALI FACP CCDS Ot 427.31 ATRIAL FIBRILLATION 01/29/2017 TY KHOURY, TONIE Diaz Ot V72.84 EXAM PRE-OPERATIVE NOS 01/29/2017 LINDA KHOURY FACC, ALI FACP CCDS Ot 250.00 DIAB NALLELY WO COMPL, TYPE II OR UNSPEC TY 01/29/2017 LINDA KHOURY FACC, ALI FACP CCDS Ot 401.9 HYPERTENSION NOS 01/29/2017 LINDA KHOURY FACC, ALI FACP CCDS Ot 427.0 PAROX ATRIAL TACHYCARDIA 01/29/2017 LINDA KHOURY FACC, ALI FACP CCDS Ot 785.1 PALPITATIONS 01/29/2017 Ot 244.9 HYPOTHYROIDISM NOS 01/29/2017 Ot 280.9 IRON DEFIC ANEMIA NOS 01/29/2017 Ot 585.3 CHRONIC KIDNEY DISEASE, STAGE III (MODER 01/29/2017 Ot V58.69 OTH MED,LT, CURRENT USE 01/29/2017 Ot 250.02 DIAB NALLELY WO COMPL, TYPE II OR UNSPEC TY 01/29/2017 HARVEY KHOURY, CLAUDE Clement Ot 574.20 CHOLELITHIASIS NOS 01/29/2017 HARVEY KHOURY, CLAUDE Clement Ot 585.2 CHRONIC KIDNEY DISEASE, STAGE II (MILD) 01/29/2017 OVI KHOURY, WU Ot E03.9 HYPOTHYROIDISM, UNSPECIFIED 01/29/2017 OVI KHOURY, TORI-FRANKIE Ot E11.65 TYPE 2 DIABETES MELLITUS WITH HYPERGLYCE 01/29/2017 OVI KHOURY, TORI-FRANKIE Ot E78.5 HYPERLIPIDEMIA, UNSPECIFIED 01/29/2017 OVI KHOURY, TORI-FRANKIE Ot I10 ESSENTIAL (PRIMARY) HYPERTENSION 01/29/2017 OVI KHOURY, TORI-FRANKIE Ot E03.9 HYPOTHYROIDISM, UNSPECIFIED 01/29/2017 OVI KHOURY, TORI-FRANKIE Ot E11.9 TYPE 2 DIABETES MELLITUS WITHOUT COMPLIC 01/29/2017 OVI KHOURY, TORI-FRANKIE Ot E78.5 HYPERLIPIDEMIA, UNSPECIFIED 01/29/2017 OVI KHOURY, TORI-FRANKIE Ot I10 ESSENTIAL (PRIMARY) HYPERTENSION 01/29/2017 SHIREEN AGARWAL Ot D64.9 ANEMIA, UNSPECIFIED 01/29/2017 SHIREEN AGARWAL Ot E03.9 HYPOTHYROIDISM, UNSPECIFIED 01/29/2017 SHIREEN AGARWAL N Ot 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 01/29/2017 SHIREEN AGARWAL Ot I12.9 HYPERTENSIVE CHRONIC KIDNEY DISEASE W ST 01/29/2017 SHIREEN AGARWAL N Ot I25.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[place] CORONARY 01/29/2017 SHIREEN AGARWAL Ot I48.91 UNSPECIFIED ATRIAL FIBRILLATION 01/29/2017 SHIREEN AGARWAL Ot N18.3 CHRONIC KIDNEY DISEASE, STAGE 3 (MODERAT 01/29/2017 SHIREEN AGARWAL N Ot Z79.899 OTHER DOUGHNUT FRYER (CURRENT) DRUG THERAPY 01/29/2017 KIERAN KHOURY, BERNY R Ot I25.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[place] CORONARY 01/29/2017 KIERAN KHOURY, BERNY R Ot I25.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[place] CORONARY 01/29/2017 SHIREEN AGARWAL Ot D50.9 IRON DEFICIENCY ANEMIA, UNSPECIFIED 01/29/2017 SHIREEN AGARWAL N Ot E03.9 HYPOTHYROIDISM, UNSPECIFIED 01/29/2017 SHIREEN AGARWAL Ot 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 01/29/2017 SHIREEN AGARWAL Ot I12.9 HYPERTENSIVE CHRONIC KIDNEY DISEASE W ST 01/29/2017 SHIREEN AGARWAL Ot I25.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[place] CORONARY 01/29/2017 SHIREEN AGARWAL Ot I48.91 UNSPECIFIED ATRIAL FIBRILLATION 01/29/2017 SHIREEN AGARWAL Solange Ot N18.3 CHRONIC KIDNEY DISEASE, STAGE 3 (MODERAT 01/29/2017 SHIREEN AGARWAL Solange Ot Z79.899 OTHER DOUGHNUT FRYER (CURRENT) DRUG THERAPY 01/29/2017 KIERAN KHOURY, Wei BRANDON Ot I47.1 SUPRAVENTRICULAR TACHYCARDIA 01/29/2017 KIERAN KHOURY, Wei BRANDON Ot I48.91 UNSPECIFIED ATRIAL FIBRILLATION 01/29/2017 SABRINA ROSSI DO Ot D50.9 IRON DEFICIENCY ANEMIA, UNSPECIFIED 01/29/2017 SABRINA ROSSI DO Ot R19.5 OTHER FECAL ABNORMALITIES 01/29/2017 SABRINA ROSSI DO Ot Z01.818 ENCOUNTER FOR OTHER PREPROCEDURAL EXAMIN 01/29/2017 SABRINA ROSSI DO Ot Z80.0 FAMILY HISTORY OF MALIGNANT NEOPLASM OF 01/29/2017 Ot 250.00 DIAB NALLELY WO COMPL, TYPE II OR UNSPEC TY 01/29/2017 CHICHI RIVAS COMPOSITION FLOOR SETTER Ot 574.20 CHOLELITHIASIS NOS 01/29/2017 CHICHI RIVAS COMPOSITION FLOOR SETTER Ot 789.1 HEPATOMEGALY 01/29/2017 LINDA GONZALESC, ALI FACP CCDS Ot 401.9 HYPERTENSION NOS 01/29/2017 LINDA GONZALESC, ALI FACP CCDS Ot 414.00 CORON ATHEROSCLER NOS TYPE VESSEL, NATIV 01/29/2017 LINDA GONZALESC, ALI FACP CCDS Ot 427.31 ATRIAL FIBRILLATION 01/29/2017 TONIE CRAWFORD MD Ot V72.84 EXAM PRE-OPERATIVE NOS 01/29/2017 LINDA GONZALESC, ALI FACP CCDS Ot 250.00 DIAB NALLELY WO COMPL, TYPE II OR UNSPEC TY 01/29/2017 LINDA KHOURY FACC, ALI FACP CCDS Ot 401.9 HYPERTENSION NOS 01/29/2017 LINDA KHOURY FACC, ALI FACP CCDS Ot 427.0 PAROX ATRIAL TACHYCARDIA 01/29/2017 LINDA KHOURY FAC, ALI FACP CCDS Ot 785.1 PALPITATIONS 01/29/2017 Ot 244.9 HYPOTHYROIDISM NOS 01/29/2017 Ot 280.9 IRON DEFIC ANEMIA NOS 01/29/2017 Ot 585.3 CHRONIC KIDNEY DISEASE, STAGE III (MODER 01/29/2017 Ot V58.69 OTH MED,LT, CURRENT USE 01/29/2017 Ot 250.02 DIAB NALLELY WO COMPL, TYPE II OR UNSPEC TY 01/29/2017 HARVEY KHOURY, CLAUDE S Ot 574.20 CHOLELITHIASIS NOS 01/29/2017 HARVEY KHOURY, CLAUED S Ot 585.2 CHRONIC KIDNEY DISEASE, STAGE II (MILD) 01/29/2017 OVI KHOURY, WU Ot E03.9 HYPOTHYROIDISM, UNSPECIFIED 01/29/2017 OVI KHOURY, TORI-FRANKIE Ot E11.65 TYPE 2 DIABETES MELLITUS WITH HYPERGLYCE 01/29/2017 OVI KHOURY, TORI-FRANKIE Ot E78.5 HYPERLIPIDEMIA, UNSPECIFIED 01/29/2017 OVI KHOURY, TORI-FRANKIE Ot I10 ESSENTIAL (PRIMARY) HYPERTENSION 01/29/2017 OVI KHOURY, TORI-FRANKIE Ot E03.9 HYPOTHYROIDISM, UNSPECIFIED 01/29/2017 OVI KHOURY, TORI-FRANKIE Ot E11.9 TYPE 2 DIABETES MELLITUS WITHOUT COMPLIC 01/29/2017 OVI KHOURY, TORI-FRANKIE Ot E78.5 HYPERLIPIDEMIA, UNSPECIFIED 01/29/2017 OVI KHOURY, TORI-FRANKIE Ot I10 ESSENTIAL (PRIMARY) HYPERTENSION 01/29/2017 SHIREEN AGARWAL Ot D64.9 ANEMIA, UNSPECIFIED 01/29/2017 SHIREEN AGARWAL Ot E03.9 HYPOTHYROIDISM, UNSPECIFIED 01/29/2017 SHIREEN AGARWAL Ot 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 01/29/2017 SHIREEN AGARWAL Ot I12.9 HYPERTENSIVE CHRONIC KIDNEY DISEASE W ST 01/29/2017 SHIREEN AGARWAL Ot I25.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[place] CORONARY 01/29/2017 SHIREEN AGARWAL Ot I48.91 UNSPECIFIED ATRIAL FIBRILLATION 01/29/2017 SHIREEN AGARWAL Ot N18.3 CHRONIC KIDNEY DISEASE, STAGE 3 (MODERAT 01/29/2017 SHIREEN AGARWAL N Ot Z79.899 OTHER DOUGHNUT FRYER (CURRENT) DRUG THERAPY 01/29/2017 KIERAN KHOURY, BERNY R Ot I25.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[place] CORONARY 01/29/2017 KIERAN KHOURY, BERNY R Ot I25.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[place] CORONARY 01/29/2017 ANYSHIREEN N Ot D50.9 IRON DEFICIENCY ANEMIA, UNSPECIFIED 01/29/2017 ANY BOBAN N Ot E03.9 HYPOTHYROIDISM, UNSPECIFIED 01/29/2017 ANY, BOBAN N Ot 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 01/29/2017 ANYJJAN N Ot I12.9 HYPERTENSIVE CHRONIC KIDNEY DISEASE W ST 01/29/2017 ANYSHIREEN N Ot I25.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[place] CORONARY 01/29/2017 ANY JJONDINA N Ot I48.91 UNSPECIFIED ATRIAL FIBRILLATION 01/29/2017 ANYSHIREEN N Ot N18.3 CHRONIC KIDNEY DISEASE, STAGE 3 (MODERAT 01/29/2017 ANY BOBAN N Ot Z79.899 OTHER DOUGHNUT FRYER (CURRENT) DRUG THERAPY 01/29/2017 KIERAN KHOURY, Wei BRANDON Ot I47.1 SUPRAVENTRICULAR TACHYCARDIA 01/29/2017 KIERAN KHOURY, Wei BRANDON Ot I48.91 UNSPECIFIED ATRIAL FIBRILLATION 01/29/2017 SABRINA ROSSI DO Ot D50.9 IRON DEFICIENCY ANEMIA, UNSPECIFIED 01/29/2017 SABRINA ROSSI DO Ot R19.5 OTHER FECAL ABNORMALITIES 01/29/2017 SABRINA ROSSI DO Ot Z01.818 ENCOUNTER FOR OTHER PREPROCEDURAL EXAMIN 01/29/2017 SABRINA ROSSI DO Ot Z80.0 FAMILY HISTORY OF MALIGNANT NEOPLASM OF 01/31/2017 JAMES TORRES MD Ot D50.0 IRON DEFICIENCY ANEMIA SECONDARY TO BLOO 01/31/2017 JAMES TORRES MD Ot E03.9 HYPOTHYROIDISM, UNSPECIFIED 01/31/2017 JAMES TORRES MD Ot E11.9 TYPE 2 DIABETES MELLITUS WITHOUT COMPLIC 01/31/2017 JAMES TORRES MD Ot E66.9 OBESITY, UNSPECIFIED 01/31/2017 GAULT MD, JAMES R Ot E78.5 HYPERLIPIDEMIA, UNSPECIFIED 01/31/2017 JAMES TORRES MD Ot I11.0 HYPERTENSIVE HEART DISEASE WITH HEART FA 01/31/2017 JAMES TORRES MD Ot I21.4 NON-ST ELEVATION (NSTEMI) MYOCARDIAL INF 01/31/2017 JAMES TORRES MD Ot I25.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[place] CORONARY 01/31/2017 JAMES TORRES MD Ot I48.0 PAROXYSMAL ATRIAL FIBRILLATION 01/31/2017 JAMES TORRES MD Ot I50.9 HEART FAILURE, UNSPECIFIED 01/31/2017 JAMES TORRES MD Ot I87.2 VENOUS INSUFFICIENCY (CHRONIC) (PERIPHER 01/31/2017 JAMES TORRES MD Ot K21.9 GASTRO-ESOPHAGEAL REFLUX DISEASE WITHOUT 01/31/2017 JAMES TORRES MD Ot L40.9 PSORIASIS, UNSPECIFIED 01/31/2017 JAMES TORRES MD Ot M79.89 OTHER SPECIFIED SOFT TISSUE DISORDERS 01/31/2017 JAMES TORRES MD Ot Z68.42 BODY MASS INDEX (BMI) 45.0-49.9, ADULT 01/31/2017 JAMES TORRES MD Ot Z79.01 DOUGHNUT FRYER (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 OF ANTICOAGULANT 01/31/2017 JAEMS TORRES MD Ot Z95.5 PRESENCE OF CORONARY ANGIOPLASTY IMPLANT 02/11/2017 SHIREEN AGARWAL Ot D50.9 IRON DEFICIENCY ANEMIA, UNSPECIFIED 02/11/2017 SHIREEN AGARWAL Ot E03.9 HYPOTHYROIDISM, UNSPECIFIED 02/11/2017 SHIREEN AGARWAL Ot 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 02/11/2017 SHIREEN AGARWAL Ot I12.9 HYPERTENSIVE CHRONIC KIDNEY DISEASE W ST 02/11/2017 SHIREEN AGARWAL Ot I25.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[place] CORONARY 02/11/2017 SHIREEN AGARWAL Ot I48.91 UNSPECIFIED ATRIAL FIBRILLATION 02/11/2017 SHIREEN AGARWAL Ot N18.3 CHRONIC KIDNEY DISEASE, STAGE 3 (MODERAT 02/11/2017 SHIREEN AGARWAL Ot Z79.899 OTHER DOUGHNUT FRYER (CURRENT) DRUG THERAPY 02/23/2017 KIERAN KHOURY, Wei BRANDON Ot I47.1 SUPRAVENTRICULAR TACHYCARDIA 02/23/2017 KIERAN KHOURY, Wei MONTEROMA Ot I48.91 UNSPECIFIED ATRIAL FIBRILLATION 02/23/2017 ROSSI DO, SABRINA D Ot D64.9 ANEMIA, UNSPECIFIED 02/23/2017 ROSSI DO SABRINA D Ot Z01.818 ENCOUNTER FOR OTHER PREPROCEDURAL EXAMIN 03/03/2017 ROSSI DO SABRINA D Ot D64.9 ANEMIA, UNSPECIFIED 03/03/2017 ROSSI DO, SABRINA D Ot E03.9 HYPOTHYROIDISM, UNSPECIFIED 03/03/2017 ROSSI DO, SABRINA D Ot E11.9 TYPE 2 DIABETES MELLITUS WITHOUT COMPLIC 03/03/2017 ROSSI DO, SABRINA D Ot K59.09 OTHER CONSTIPATION 03/09/2017 ANYSHIREEN BALDWIN N Ot D50.9 IRON DEFICIENCY ANEMIA, UNSPECIFIED 03/09/2017 ANYSHIREEN N Ot E03.9 HYPOTHYROIDISM, UNSPECIFIED 03/09/2017 ANY, BOBAN N Ot 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 03/09/2017 ANY BOBAN N Ot I12.9 HYPERTENSIVE CHRONIC KIDNEY DISEASE W ST 03/09/2017 ANY BOBAN N Ot I25.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[place] CORONARY 03/09/2017 ANYSHIREEN N Ot I48.91 UNSPECIFIED ATRIAL FIBRILLATION 03/09/2017 ANY BOBAN N Ot N18.3 CHRONIC KIDNEY DISEASE, STAGE 3 (MODERAT 03/09/2017 ANY BOBAN N Ot Z79.899 OTHER DOUGHNUT FRYER (CURRENT) DRUG THERAPY 03/10/2017 ANYSHIREEN BALDWIN N Ot D50.9 IRON DEFICIENCY ANEMIA, UNSPECIFIED 03/10/2017 ANY BOBAN N Ot E03.9 HYPOTHYROIDISM, UNSPECIFIED 03/10/2017 ANY, BOBAN N Ot 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 03/10/2017 ANY BOBAN N Ot I12.9 HYPERTENSIVE CHRONIC KIDNEY DISEASE W ST 03/10/2017 ANY, BOBAN N Ot I25.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[place] CORONARY 03/10/2017 ANY BOBAN N Ot I48.91 UNSPECIFIED ATRIAL FIBRILLATION 03/10/2017 ANY BOBAN N Ot N18.3 CHRONIC KIDNEY DISEASE, STAGE 3 (MODERAT 03/10/2017 ANY, BOBAN N Ot Z79.899 OTHER HALF-WAY (CURRENT) DRUG THERAPY 03/13/2017 SABRINA ROSSI DO Ot D64.9 ANEMIA, UNSPECIFIED 03/13/2017 SABRINA ROSSI DO Ot E03.9 HYPOTHYROIDISM, UNSPECIFIED 03/13/2017 SABRINA ROSSI DO D Ot E11.9 TYPE 2 DIABETES MELLITUS WITHOUT COMPLIC 03/13/2017 SABRINA ROSSI DO Ot K59.09 OTHER CONSTIPATION 03/19/2017 ANYSHIREEN N Ot D64.9 ANEMIA, UNSPECIFIED 03/20/2017 ANYSHIREEN N Ot D50.9 IRON DEFICIENCY ANEMIA, UNSPECIFIED 03/20/2017 ANYSHIREEN N Ot E03.9 HYPOTHYROIDISM, UNSPECIFIED 03/20/2017 ANYSHIREEN N Ot 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 03/20/2017 ANYSHIREEN N Ot I12.9 HYPERTENSIVE CHRONIC KIDNEY DISEASE W ST 03/20/2017 SHIREEN AGARWAL Ot I25.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[place] CORONARY 03/20/2017 ANYSHIREEN N Ot I48.91 UNSPECIFIED ATRIAL FIBRILLATION 03/20/2017 ANYSHIREEN N Ot N18.3 CHRONIC KIDNEY DISEASE, STAGE 3 (MODERAT 03/20/2017 ANYSHIREEN N Ot Z79.899 OTHER DOUGHNUT FRYER (CURRENT) DRUG THERAPY 04/01/2017 ANY SHIREEN N Ot D64.9 ANEMIA, UNSPECIFIED 04/06/2017 SABRINA ROSSI DO Ot K29.80 DUODENITIS WITHOUT BLEEDING 04/06/2017 SABRINA ROSSI DO Ot Z01.818 ENCOUNTER FOR OTHER PREPROCEDURAL EXAMIN 04/06/2017 SABRINA ROSSI DO Ot K29.80 DUODENITIS WITHOUT BLEEDING 04/06/2017 SABRINA ROSSI DO Ot Z01.818 ENCOUNTER FOR OTHER PREPROCEDURAL EXAMIN 04/08/2017 SABRINA ROSSI DO Ot K29.80 DUODENITIS WITHOUT BLEEDING 04/08/2017 SABRINA ROSSI DO Ot Z53.9 PROCEDURE AND TREATMENT NOT CARRIED OUT, 04/23/2017 SABRINA ROSSI DO Ot K29.80 DUODENITIS WITHOUT BLEEDING 04/23/2017 SABRINA ROSSI DO Ot Z53.9 PROCEDURE AND TREATMENT NOT CARRIED OUT, 04/23/2017 ROSSI SABRINA WOOD Ot K29.80 DUODENITIS WITHOUT BLEEDING 04/23/2017 ROSSI SABRINA WOOD Ot Z53.9 PROCEDURE AND TREATMENT NOT CARRIED OUT, 06/10/2017 JAMES TORRES MD Ot E03.9 HYPOTHYROIDISM, UNSPECIFIED 06/10/2017 JAMES TORRES MD Ot E11.9 TYPE 2 DIABETES MELLITUS WITHOUT COMPLIC 06/10/2017 JAMES TORRES MD Ot I10 ESSENTIAL (PRIMARY) HYPERTENSION 06/10/2017 [place] SABRINA WOOD Ot D64.9 ANEMIA, UNSPECIFIED 06/10/2017 ROSSI SABRINA WOOD Ot K76.89 OTHER SPECIFIED DISEASES OF LIVER 06/10/2017 [place] SABRINA WOOD Ot K82.1 HYDROPS OF GALLBLADDER 06/16/2017 ANY SHIREEN Solange Ot D64.9 ANEMIA, UNSPECIFIED 06/16/2017 Ot 250.00 DIAB NALLELY WO COMPL, TYPE II OR UNSPEC TY 06/16/2017 CHICHI RIVAS COMPOSITION FLOOR SETTER Ot 574.20 CHOLELITHIASIS NOS 06/16/2017 CHICHI RIVAS COMPOSITION FLOOR SETTER Ot 789.1 HEPATOMEGALY 06/16/2017 LINDA KHOURY FACC, ALI FACP CCDS Ot 401.9 HYPERTENSION NOS 06/16/2017 LINDA GONZALESC, ALI FACP CCDS Ot 414.00 CORON ATHEROSCLER NOS TYPE VESSEL, NATIV 06/16/2017 LINDA GONZALESC, ALI FACP CCDS Ot 427.31 ATRIAL FIBRILLATION 06/16/2017 TY KHOURY, TONIE Diaz Ot V72.84 EXAM PRE-OPERATIVE NOS 06/16/2017 LINDA GONZALESC, ALI FACP CCDS Ot 250.00 DIAB NALLELY WO COMPL, TYPE II OR UNSPEC TY 06/16/2017 LINDA KHOURY FACC, ALI FACP CCDS Ot 401.9 HYPERTENSION NOS 06/16/2017 LINDA KHOURY FACC, ALI FACP CCDS Ot 427.0 PAROX ATRIAL TACHYCARDIA 06/16/2017 LINDA KHOURY FACC, ALI FACP CCDS Ot 785.1 PALPITATIONS 06/16/2017 Ot 244.9 HYPOTHYROIDISM NOS 06/16/2017 Ot 280.9 IRON DEFIC ANEMIA NOS 06/16/2017 Ot 585.3 CHRONIC KIDNEY DISEASE, STAGE III (MODER 06/16/2017 Ot V58.69 OTH MED,LT, CURRENT USE 06/16/2017 Ot 250.02 DIAB NALLELY WO COMPL, TYPE II OR UNSPEC TY 06/16/2017 HARVEY KHOURY, CLAUDE S Ot 574.20 CHOLELITHIASIS NOS 06/16/2017 HARVEY KHOURY, CLUADE Clement Ot 585.2 CHRONIC KIDNEY DISEASE, STAGE II (MILD) 06/16/2017 OVI KHOURY, WU Ot E03.9 HYPOTHYROIDISM, UNSPECIFIED 06/16/2017 OVI KHOURY, TORI-FRANKIE Ot E11.65 TYPE 2 DIABETES MELLITUS WITH HYPERGLYCE 06/16/2017 OVI KHOURY, TORI-FRANKIE Ot E78.5 HYPERLIPIDEMIA, UNSPECIFIED 06/16/2017 OVI KHOURY, TORI-FRANKIE Ot I10 ESSENTIAL (PRIMARY) HYPERTENSION 06/16/2017 OVI KHOURY, TORI-FRANKIE Ot E03.9 HYPOTHYROIDISM, UNSPECIFIED 06/16/2017 OVI KHOURY, TORI-FRANKIE Ot E11.9 TYPE 2 DIABETES MELLITUS WITHOUT COMPLIC 06/16/2017 OVI KHOURY, TORI-FRANKIE Ot E78.5 HYPERLIPIDEMIA, UNSPECIFIED 06/16/2017 OVI KHOURY, TORI-FRANKIE Ot I10 ESSENTIAL (PRIMARY) HYPERTENSION 06/16/2017 SHIREEN AGARWAL Ot D64.9 ANEMIA, UNSPECIFIED 06/16/2017 SHIREEN AGARWAL Ot E03.9 HYPOTHYROIDISM, UNSPECIFIED 06/16/2017 SHIREEN AGARWAL Ot 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 06/16/2017 SHIREEN AGARWAL Ot I12.9 HYPERTENSIVE CHRONIC KIDNEY DISEASE W ST 06/16/2017 SHIREEN AGARWAL Ot I25.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[place] CORONARY 06/16/2017 SHIREEN AGARWAL Ot I48.91 UNSPECIFIED ATRIAL FIBRILLATION 06/16/2017 SHIREEN AGARWAL Ot N18.3 CHRONIC KIDNEY DISEASE, STAGE 3 (MODERAT 06/16/2017 SHIREEN AGARWAL Ot Z79.899 OTHER DOUGHNUT FRYER (CURRENT) DRUG THERAPY 06/16/2017 KIERAN KHOURY, BERNY Champion Ot I25.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[place] CORONARY 06/16/2017 KIERAN KHOURY, BERNY Champion Ot I25.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[place] CORONARY 06/16/2017 KIERAN KHOURY, M ROMA Ot I47.1 SUPRAVENTRICULAR TACHYCARDIA 06/16/2017 KIERAN KHOURY, Wei BRANDON Ot I48.91 UNSPECIFIED ATRIAL FIBRILLATION 06/16/2017 SABRINA ROSSI DO Ot D50.9 IRON DEFICIENCY ANEMIA, UNSPECIFIED 06/16/2017 ROSSICARLYN WOOD SABRINA D Ot R19.5 OTHER FECAL ABNORMALITIES 06/16/2017 SABRINA ROSSI DO D Ot Z01.818 ENCOUNTER FOR OTHER PREPROCEDURAL EXAMIN 06/16/2017 SABRINA ROSSI DO D Ot Z80.0 FAMILY HISTORY OF MALIGNANT NEOPLASM OF 06/16/2017 SABRINA ROSSI DO D Ot D64.9 ANEMIA, UNSPECIFIED 06/16/2017 SABRINA ROSSI DO Ot E03.9 HYPOTHYROIDISM, UNSPECIFIED 06/16/2017 SABRINA ROSSI DO Ot E11.9 TYPE 2 DIABETES MELLITUS WITHOUT COMPLIC 06/16/2017 SABRINA ROSSI DO Ot K59.09 OTHER CONSTIPATION 06/16/2017 SABRINA ROSSI DO D Ot K29.80 DUODENITIS WITHOUT BLEEDING 06/16/2017 SHIREEN AGARWAL Ot D64.9 ANEMIA, UNSPECIFIED 06/16/2017 JAMES TORRES MD Ot E03.9 HYPOTHYROIDISM, UNSPECIFIED 06/16/2017 JAMES TORRES MD Ot E11.9 TYPE 2 DIABETES MELLITUS WITHOUT COMPLIC 06/16/2017 BRIAN KHOURY, JAMES Champion Ot I10 ESSENTIAL (PRIMARY) HYPERTENSION 06/16/2017 SABRINA ROSSI DO Ot D64.9 ANEMIA, UNSPECIFIED 06/16/2017 SABRINA ROSSI DO D Ot K76.89 OTHER SPECIFIED DISEASES OF LIVER 06/16/2017 SABRINA ROSSI DO Ot K82.1 HYDROPS OF GALLBLADDER 06/22/2017 SHIREEN AGARWAL Ot D50.9 IRON DEFICIENCY ANEMIA, UNSPECIFIED 06/22/2017 SHIREEN AGARWAL Ot E03.9 HYPOTHYROIDISM, UNSPECIFIED 06/22/2017 SHIREEN AGARWAL Ot 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 06/22/2017 SHIREEN AGARWAL Ot I12.9 HYPERTENSIVE CHRONIC KIDNEY DISEASE W ST 06/22/2017 SHIREEN AGARWAL Ot I25.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[place] CORONARY 06/22/2017 ANYJJ BALDWINAN N Ot I48.91 UNSPECIFIED ATRIAL FIBRILLATION 06/22/2017 SHIREEN AGARWAL N Ot N18.3 CHRONIC KIDNEY DISEASE, STAGE 3 (MODERAT 06/22/2017 ANY, BOBAN N Ot Z79.899 OTHER HALF-WAY (CURRENT) DRUG THERAPY 07/07/2017 JJ AGARWALAN N Ot D50.9 IRON DEFICIENCY ANEMIA, UNSPECIFIED 07/07/2017 ANY, BOBAN N Ot E03.9 HYPOTHYROIDISM, UNSPECIFIED 07/07/2017 ANY, BOBAN N Ot 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 07/07/2017 ANY, BOBAN N Ot I12.9 HYPERTENSIVE CHRONIC KIDNEY DISEASE W ST 07/07/2017 ANY, BOBAN N Ot I25.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[place] CORONARY 07/07/2017 ANY BOBAN N Ot I48.91 UNSPECIFIED ATRIAL FIBRILLATION 07/07/2017 ANY BOBAN N Ot N18.3 CHRONIC KIDNEY DISEASE, STAGE 3 (MODERAT 07/07/2017 ANY, BOBAN N Ot Z79.899 OTHER DOUGHNUT FRYER (CURRENT) DRUG THERAPY 07/07/2017 MELIZA KHOURY, BRANDEN Ot D50.9 IRON DEFICIENCY ANEMIA, UNSPECIFIED 07/07/2017 BRANDEN HAIDER MD Ot E03.9 HYPOTHYROIDISM, UNSPECIFIED 07/07/2017 MELIZA KHOURY, BRANDEN Ot 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 07/07/2017 MELIZA KHOURY, BRANDEN Ot I12.9 HYPERTENSIVE CHRONIC KIDNEY DISEASE W ST 07/07/2017 MELIZA KHOURY, BRANDEN Ot I25.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[place] CORONARY 07/07/2017 MELIZA KHOURY, BRANDEN Ot I48.91 UNSPECIFIED ATRIAL FIBRILLATION 07/07/2017 MELIZA KHOURY, BRANDEN Ot N18.3 CHRONIC KIDNEY DISEASE, STAGE 3 (MODERAT 07/07/2017 MELIZA KHOURY, BRANDEN Ot Z79.899 OTHER DOUGHNUT FRYER (CURRENT) DRUG THERAPY 07/10/2017 RACHELE JEFFERSON COMPOSITION FLOOR SETTER Ot D64.89 OTHER SPECIFIED ANEMIAS 07/10/2017 RACHELE JEFFERSON COMPOSITION FLOOR SETTER Ot R06.02 SHORTNESS OF BREATH 07/17/2017 CARMINE BORRERO DO Ot D12.0 BENIGN NEOPLASM OF CECUM 07/17/2017 DIVYA BORRERO DOIC B Ot D12.2 BENIGN NEOPLASM OF ASCENDING COLON 07/17/2017 DIVYA BORRERO DOIC B Ot D64.9 ANEMIA, UNSPECIFIED 07/17/2017 GISSELL DIVYAIC B Ot E11.4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 07/17/2017 GISSELL WOOD CARMINE B Ot E66.01 MORBID (SEVERE) OBESITY DUE TO EXCESS CA 07/17/2017 GISSELL CARMINE B Ot I10 ESSENTIAL (PRIMARY) HYPERTENSION 07/17/2017 GISSELL WOOD CARMINE B Ot I48.91 UNSPECIFIED ATRIAL FIBRILLATION 07/17/2017 DIVYA BORRERO DOIC B Ot K29.50 UNSPECIFIED CHRONIC GASTRITIS WITHOUT BL 07/17/2017 DIVYA BORRERO DOIC B Ot K29.70 GASTRITIS, UNSPECIFIED, WITHOUT BLEEDING 07/17/2017 DIVYA BORRERO DOIC B Ot K31.7 POLYP OF STOMACH AND DUODENUM 07/17/2017 LUIZARIANA WOODDIVYAIC B Ot K57.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 07/17/2017 DIVYA BORRERO DOIC B Ot K63.5 POLYP OF COLON 07/17/2017 LUIZARIANA DIVYA WOODIC B Ot K64.8 OTHER HEMORRHOIDS 07/17/2017 DIVYA BORRERO DOIC B Ot 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 07/17/2017 DIVYA BORRERO DOIC B Ot Z68.42 BODY MASS INDEX (BMI) 45.0-49.9, ADULT 07/17/2017 DIVYA BORRERO DOIC B Ot Z79.899 OTHER DOUGHNUT FRYER (CURRENT) DRUG THERAPY 07/24/2017 DIVYA BORRERO DOIC B Ot D12.0 BENIGN NEOPLASM OF CECUM 07/24/2017 DIVYA BORRERO DOIC B Ot D12.2 BENIGN NEOPLASM OF ASCENDING COLON 07/24/2017 DIVYA BORRERO DOIC B Ot D64.9 ANEMIA, UNSPECIFIED 07/24/2017 DIVYA BORRERO DOIC B Ot E11.4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 07/24/2017 LUIZARIANA WOOD CARMINE B Ot E66.01 MORBID (SEVERE) OBESITY DUE TO EXCESS CA 07/24/2017 GISSELL WOOD CARMINE B Ot I10 ESSENTIAL (PRIMARY) HYPERTENSION 07/24/2017 DIVYA BORRERO DOIC B Ot I48.91 UNSPECIFIED ATRIAL FIBRILLATION 07/24/2017 LUIZARIANA WOODDIVYAIC B Ot K29.50 UNSPECIFIED CHRONIC GASTRITIS WITHOUT BL 07/24/2017 DIVYA BORRERO DOIC B Ot K31.7 POLYP OF STOMACH AND DUODENUM 07/24/2017 LUIZARIANA WOOD CARMINE B Ot K57.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 07/24/2017 DIVYA BORRERO DOIC B Ot K64.8 OTHER HEMORRHOIDS 07/24/2017 DIVYA BORRERO DOIC B Ot 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 07/24/2017 GISSELL WOOD CARMINE B Ot Z68.42 BODY MASS INDEX (BMI) 45.0-49.9, ADULT 07/24/2017 DIVYA BORRERO DOIC B Ot Z79.899 OTHER DOUGHNUT FRYER (CURRENT) DRUG THERAPY 07/24/2017 DIVYA BORRERO DOIC B Ot D12.0 BENIGN NEOPLASM OF CECUM 07/24/2017 DIVYA BORRERO DOIC B Ot D12.2 BENIGN NEOPLASM OF ASCENDING COLON 07/24/2017 DIVYA BORRERO DOIC B Ot D64.9 ANEMIA, UNSPECIFIED 07/24/2017 LUIZARIANA DO CARMINE B Ot E11.4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 07/24/2017 DIVYA BORRERO DOIC B Ot E66.01 MORBID (SEVERE) OBESITY DUE TO EXCESS CA 07/24/2017 GISSELL WOOD CARMINE B Ot I10 ESSENTIAL (PRIMARY) HYPERTENSION 07/24/2017 GISSELL WOOD CARMINE B Ot I48.91 UNSPECIFIED ATRIAL FIBRILLATION 07/24/2017 DIVYA BORRERO DOIC B Ot K29.50 UNSPECIFIED CHRONIC GASTRITIS WITHOUT BL 07/24/2017 DIVYA BORRERO DOIC B Ot K31.7 POLYP OF STOMACH AND DUODENUM 07/24/2017 GISSELL WOOD CARMINE B Ot K57.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 07/24/2017 DIVYA BORRERO DOIC B Ot K64.8 OTHER HEMORRHOIDS 07/24/2017 GISSELL WOOD CARMINE B Ot 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 07/24/2017 GISSELL WOOD CARMINE B Ot Z68.42 BODY MASS INDEX (BMI) 45.0-49.9, ADULT 07/24/2017 DELMAN DO, CARMINE B Ot Z79.899 OTHER DOUGHNUT FRYER (CURRENT) DRUG THERAPY 07/28/2017 BRANDEN HAIDER MD Ot D50.9 IRON DEFICIENCY ANEMIA, UNSPECIFIED 07/28/2017 BRANDEN HAIDER MD Ot E03.9 HYPOTHYROIDISM, UNSPECIFIED 07/28/2017 MELIZA KHOURY, BRANDEN Ot 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 07/28/2017 BRANDEN HAIDER MD Ot I12.9 HYPERTENSIVE CHRONIC KIDNEY DISEASE W ST 07/28/2017 BRANDEN HAIDER MD Ot I25.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[place] CORONARY 07/28/2017 BRANDEN HAIDER MD Ot I48.91 UNSPECIFIED ATRIAL FIBRILLATION 07/28/2017 BRANDEN HAIDER MD Ot N18.3 CHRONIC KIDNEY DISEASE, STAGE 3 (MODERAT 07/28/2017 MELIZA KHOURY, BRANDEN Ot Z79.899 OTHER DOUGHNUT FRYER (CURRENT) DRUG THERAPY 07/29/2017 ANY, BOBAN N Ot D50.9 IRON DEFICIENCY ANEMIA, UNSPECIFIED 07/29/2017 ANY, BOBAN N Ot E03.9 HYPOTHYROIDISM, UNSPECIFIED 07/29/2017 ANY, BOBAN N Ot 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 07/29/2017 ANY, BOBAN N Ot I12.9 HYPERTENSIVE CHRONIC KIDNEY DISEASE W ST 07/29/2017 ANY, BOBAN N Ot I25.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[place] CORONARY 07/29/2017 ANY, BOBAN N Ot I48.91 UNSPECIFIED ATRIAL FIBRILLATION 07/29/2017 ANY, BOBAN N Ot N18.3 CHRONIC KIDNEY DISEASE, STAGE 3 (MODERAT 07/29/2017 ANY, BOBAN N Ot Z79.899 OTHER HALF-WAY (CURRENT) DRUG THERAPY 08/11/2017 DELARIANA DO, CARMINE B Ot D12.0 BENIGN NEOPLASM OF CECUM 08/11/2017 DELARIANA DO, CARMINE B Ot D12.2 BENIGN NEOPLASM OF ASCENDING COLON 08/11/2017 GISSELL DO, CARMINE B Ot D64.9 ANEMIA, UNSPECIFIED 08/11/2017 GISSELL DO, CARMINE B Ot E11.4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 08/11/2017 GISSELL DO, CARMINE B Ot E66.01 MORBID (SEVERE) OBESITY DUE TO EXCESS CA 08/11/2017 GISSELL DO CARMINE B Ot I10 ESSENTIAL (PRIMARY) HYPERTENSION 08/11/2017 GISSELL WOOD CARMINE B Ot I48.91 UNSPECIFIED ATRIAL FIBRILLATION 08/11/2017 GISSELL WOOD CARMINE B Ot K29.50 UNSPECIFIED CHRONIC GASTRITIS WITHOUT BL 08/11/2017 GISSELL WOOD CARMINE B Ot K31.7 POLYP OF STOMACH AND DUODENUM 08/11/2017 GISSELL WOOD CARMINE B Ot K57.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 08/11/2017 GISSELL WOOD CARMINE B Ot K64.8 OTHER HEMORRHOIDS 08/11/2017 GISSELL WOOD CARMINE B Ot 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 08/11/2017 GISSELL WOOD CARMINE B Ot Z68.42 BODY MASS INDEX (BMI) 45.0-49.9, ADULT 08/11/2017 GISSELL WOOD CARMINE B Ot Z79.899 OTHER [place] (CURRENT) DRUG THERAPY 09/02/2017 SHIREEN AGARWAL Ot D50.9 IRON DEFICIENCY ANEMIA, UNSPECIFIED 09/02/2017 SHIREEN AGARWAL Ot E03.9 HYPOTHYROIDISM, UNSPECIFIED 09/02/2017 SHIREEN AGARWAL N Ot 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 09/02/2017 SHIREEN AGARWAL Ot I12.9 HYPERTENSIVE CHRONIC KIDNEY DISEASE W ST 09/02/2017 SHIREEN AGARWAL Ot I25.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[place] CORONARY 09/02/2017 SHIREEN AGARWAL Ot I48.91 UNSPECIFIED ATRIAL FIBRILLATION 09/02/2017 SHIREEN AGARWAL Ot N18.3 CHRONIC KIDNEY DISEASE, STAGE 3 (MODERAT 09/02/2017 SHIREEN AGARWAL N Ot Z79.899 OTHER [place] (CURRENT) DRUG THERAPY 09/02/2017 Ot 250.00 DIAB NALLELY WO COMPL, TYPE II OR UNSPEC TY 09/02/2017 CHICHI RIVAS COMPOSITION FLOOR SETTER Ot 574.20 CHOLELITHIASIS NOS 09/02/2017 CHICHI RIVAS COMPOSITION FLOOR SETTER Ot 789.1 HEPATOMEGALY 09/02/2017 LINDA KHOURY FACC, ARNIE GONZALESP CCDS Ot 401.9 HYPERTENSION NOS 09/02/2017 LINDA GONZALESC, ARNIE GONZALESP CCDS Ot 414.00 CORON ATHEROSCLER NOS TYPE VESSEL, NATIV 09/02/2017 LINDA KHOURY FACC, ALI FACP CCDS Ot 427.31 ATRIAL FIBRILLATION 09/02/2017 TY KHOURY, TONIE Diaz Ot V72.84 EXAM PRE-OPERATIVE NOS 09/02/2017 LINDA KHOURY FACC, ALI FACP CCDS Ot 250.00 DIAB NALLELY WO COMPL, TYPE II OR UNSPEC TY 09/02/2017 LINDA KHOURY FACC, ALI FACP CCDS Ot 401.9 HYPERTENSION NOS 09/02/2017 LINDA KHOURY FACC, ALI FACP CCDS Ot 427.0 PAROX ATRIAL TACHYCARDIA 09/02/2017 LINDA KHOURY FACC, ALI FACP CCDS Ot 785.1 PALPITATIONS 09/02/2017 Ot 244.9 HYPOTHYROIDISM NOS 09/02/2017 Ot 280.9 IRON DEFIC ANEMIA NOS 09/02/2017 Ot 585.3 CHRONIC KIDNEY DISEASE, STAGE III (MODER 09/02/2017 Ot V58.69 OTH MED,LT, CURRENT USE 09/02/2017 Ot 250.02 DIAB NALLELY WO COMPL, TYPE II OR UNSPEC TY 09/02/2017 HARVEY KHOURY, CLAUDE S Ot 574.20 CHOLELITHIASIS NOS 09/02/2017 HARVEY KHOURY, DREMED S Ot 585.2 CHRONIC KIDNEY DISEASE, STAGE II (MILD) 09/02/2017 OVI KHOURY, WU Ot E03.9 HYPOTHYROIDISM, UNSPECIFIED 09/02/2017 OVI KHOURY, TORI-FRANKIE Ot E11.65 TYPE 2 DIABETES MELLITUS WITH HYPERGLYCE 09/02/2017 OVI KHOURY, WU Ot E78.5 HYPERLIPIDEMIA, UNSPECIFIED 09/02/2017 OVI KHOURY, TORI-FRANKIE Ot I10 ESSENTIAL (PRIMARY) HYPERTENSION 09/02/2017 OVI KHOURY, TORI-FRANKIE Ot E03.9 HYPOTHYROIDISM, UNSPECIFIED 09/02/2017 OVI KHOURY, TORI-FRANKIE Ot E11.9 TYPE 2 DIABETES MELLITUS WITHOUT COMPLIC 09/02/2017 OVI KHOURY, WU Ot E78.5 HYPERLIPIDEMIA, UNSPECIFIED 09/02/2017 OVI KHOURY, TORI-FRANKIE Ot I10 ESSENTIAL (PRIMARY) HYPERTENSION 09/02/2017 SHIREEN AGARWAL Ot D64.9 ANEMIA, UNSPECIFIED 09/02/2017 SHIREEN AGARWAL Ot E03.9 HYPOTHYROIDISM, UNSPECIFIED 09/02/2017 ANY, BOBAN N Ot 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 09/02/2017 SHIREEN AGARWAL Solange Ot I12.9 HYPERTENSIVE CHRONIC KIDNEY DISEASE W ST 09/02/2017 ANYSHIREEN BALDWIN Solange Ot I25.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[place] CORONARY 09/02/2017 SHIREEN AGARWAL Solange Ot I48.91 UNSPECIFIED ATRIAL FIBRILLATION 09/02/2017 SHIREEN AGARWAL Solange Ot N18.3 CHRONIC KIDNEY DISEASE, STAGE 3 (MODERAT 09/02/2017 SHIREEN AGARWAL Solange Ot Z79.899 OTHER HALF-WAY (CURRENT) DRUG THERAPY 09/02/2017 KIERAN KHOURY, BERNY Champion Ot I25.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[place] CORONARY 09/02/2017 KIERAN KHOURY, BERNY Champion Ot I25.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[place] CORONARY 09/02/2017 KIERAN KHOURY, Wei BRANDON Ot I47.1 SUPRAVENTRICULAR TACHYCARDIA 09/02/2017 KIERAN KHOURY, Wei BRANDON Ot I48.91 UNSPECIFIED ATRIAL FIBRILLATION 09/02/2017 SABRINA ROSSI DO Ot D50.9 IRON DEFICIENCY ANEMIA, UNSPECIFIED 09/02/2017 SABRINA ROSSI DO Ot R19.5 OTHER FECAL ABNORMALITIES 09/02/2017 SABRINA ROSSI DO Ot Z01.818 ENCOUNTER FOR OTHER PREPROCEDURAL EXAMIN 09/02/2017 SABRINA ROSSI DO Ot Z80.0 FAMILY HISTORY OF MALIGNANT NEOPLASM OF 09/02/2017 SABRINA ROSSI DO Ot D64.9 ANEMIA, UNSPECIFIED 09/02/2017 SABRINA ROSSI DO Ot E03.9 HYPOTHYROIDISM, UNSPECIFIED 09/02/2017 SABRINA ROSSI DO Ot E11.9 TYPE 2 DIABETES MELLITUS WITHOUT COMPLIC 09/02/2017 SABRINA RSOSI DO Ot K59.09 OTHER CONSTIPATION 09/02/2017 SABRINA ROSSI DO Ot K29.80 DUODENITIS WITHOUT BLEEDING 09/02/2017 JAMES TORRES MD Ot E03.9 HYPOTHYROIDISM, UNSPECIFIED 09/02/2017 JAMES TORRES MD Ot E11.9 TYPE 2 DIABETES MELLITUS WITHOUT COMPLIC 09/02/2017 JAMES TORRES MD Ot I10 ESSENTIAL (PRIMARY) HYPERTENSION 09/02/2017 SABRINA ROSSI DO Ot D64.9 ANEMIA, UNSPECIFIED 09/02/2017 SABRINA ROSSI DO Ot K76.89 OTHER SPECIFIED DISEASES OF LIVER 09/02/2017 SABRINA ROSSI DO Joe Ot K82.1 HYDROPS OF GALLBLADDER 09/02/2017 RACHELE JEFFERSON COMPOSITION FLOOR SETTER Ot D64.89 OTHER SPECIFIED ANEMIAS 09/02/2017 RACHELE JEFFERSON COMPOSITION FLOOR SETTER Ot R06.02 SHORTNESS OF BREATH 09/02/2017 ANY JJONDINA Narvaez Ot D50.9 IRON DEFICIENCY ANEMIA, UNSPECIFIED 09/02/2017 ANYSHIREEN Ot E03.9 HYPOTHYROIDISM, UNSPECIFIED 09/02/2017 ANYSHIREEN Ot 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 09/02/2017 ANYSHIREEN Ot I12.9 HYPERTENSIVE CHRONIC KIDNEY DISEASE W ST 09/02/2017 SHIREEN AGARWAL Ot I25.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[place] CORONARY 09/02/2017 SHIREEN AGARWAL Ot I48.91 UNSPECIFIED ATRIAL FIBRILLATION 09/02/2017 SHIREEN AGARWAL Ot N18.3 CHRONIC KIDNEY DISEASE, STAGE 3 (MODERAT 09/02/2017 ANY SHIREEN Solange Ot Z79.899 OTHER [place] (CURRENT) DRUG THERAPY Procedures Code Description Performed By Performed On [id number] MEASURE OF CARDIAC SAMPL PRESSURE, L H 01/30/2017 [id number] FLUOROSCOPY OF MULT COR ART USING L OSM 01/30/2017 [id number] FLUOROSCOPY OF LEFT HEART USING LOW OSMO 01/30/2017 Results Test Result Range Stool occult blood screen - 12/18/16 09:15 Stool gastrointestinal hemoglobin detection POSITIVE NEGATIVE Stool occult blood screen - 12/18/16 17:13 Stool gastrointestinal hemoglobin detection POSITIVE NEGATIVE Automated blood complete blood count (hemogram) panel - 12/31/16 11:24 Blood leukocytes automated count (number/volume) 5.7 10*3/uL 4.3-11.0 Blood erythrocytes automated count (number/volume) 2.67 10*6/uL 4.35-5.85 Venous blood hemoglobin measurement (mass/volume) 8.1 g/dL 11.5-16.0 Blood hematocrit (volume fraction) 26 % 35-52 Automated erythrocyte mean corpuscular volume 97 [foz_us] 80-99 Automated erythrocyte mean corpuscular hemoglobin (mass per erythrocyte) 30 pg 25-34 Automated erythrocyte mean corpuscular hemoglobin concentration measurement ( mass/volume) 31 g/dL 32-36 Automated erythrocyte distribution width ratio 16.0 % 10.0-14.5 Automated blood platelet count (count/volume) 173 10*3/uL 130-400 Automated blood platelet mean volume measurement 9.3 [foz_us] 7.4-10.4 Capillary blood glucose measurement by glucometer (mass/volume) - 01/02/17 07: 12 Capillary blood glucose measurement by glucometer (mass/volume) 236 mg/dL 70-110 Complete blood count (CBC) with automated white blood cell (WBC) differential - 01/29/17 08:52 Blood leukocytes automated count (number/volume) 7.3 10*3/uL 4.3-11.0 Blood erythrocytes automated count (number/volume) 2.59 10*6/uL 4.35-5.85 Venous blood hemoglobin measurement (mass/volume) 7.7 g/dL 11.5-16.0 Blood hematocrit (volume fraction) 25 % 35-52 Automated erythrocyte mean corpuscular volume 96 [foz_us] 80-99 Automated erythrocyte mean corpuscular hemoglobin (mass per erythrocyte) 30 pg 25-34 Automated erythrocyte mean corpuscular hemoglobin concentration measurement ( mass/volume) 31 g/dL 32-36 Automated erythrocyte distribution width ratio 14.9 % 10.0-14.5 Automated blood platelet count (count/volume) 162 10*3/uL 130-400 Automated blood platelet mean volume measurement 10.2 [foz_us] 7.4-10.4 Automated blood neutrophils/100 leukocytes 70 % 42-75 Automated blood lymphocytes/100 leukocytes 16 % 12-44 Blood monocytes/100 leukocytes 9 % 0-12 Automated blood eosinophils/100 leukocytes 4 % 0-10 Automated blood basophils/100 leukocytes 0 % 0-10 Blood neutrophils automated count (number/volume) 5.1 10*3 1.8-7.8 Blood lymphocytes automated count (number/volume) 1.2 10*3 1.0-4.0 Blood monocytes automated count (number/volume) 0.7 10*3 0.0-1.0 Automated eosinophil count 0.3 10*3/uL 0.0-0.3 Automated blood basophil count (count/volume) 0.0 10*3/uL 0.0-0.1 Comprehensive metabolic panel - 01/29/17 08:52 Serum or plasma sodium measurement (moles/volume) 136 mmol/L 135-145 Serum or plasma potassium measurement (moles/volume) 4.6 mmol/L 3.6-5.0 Serum or plasma chloride measurement (moles/volume) 101 mmol/L 98-107 Carbon dioxide 22 mmol/L 21-32 Serum or plasma anion gap determination (moles/volume) 13 mmol/L 5-14 Serum or plasma urea nitrogen measurement (mass/volume) 13 mg/dL 7-18 Serum or plasma creatinine measurement (mass/volume) 1.20 mg/dL 0.60-1.30 Serum or plasma urea nitrogen/creatinine mass ratio 11 NRG Serum or plasma creatinine measurement with calculation of estimated glomerular filtration rate 46 NRG Serum or plasma glucose measurement (mass/volume) 450 mg/dL 70-105 Serum or plasma calcium measurement (mass/volume) 9.2 mg/dL 8.5-10.1 Serum or plasma total bilirubin measurement (mass/volume) 0.6 mg/dL 0.1-1.0 Serum or plasma alkaline phosphatase measurement (enzymatic activity/volume) 56 U/L 40-136 Serum or plasma aspartate aminotransferase measurement (enzymatic activity/ volume) 42 U/L 5-34 Serum or plasma alanine aminotransferase measurement (enzymatic activity/volume ) 21 U/L 0-55 Serum or plasma protein measurement (mass/volume) 6.8 g/dL 6.4-8.2 Serum or plasma albumin measurement (mass/volume) 3.6 g/dL 3.2-4.5 Serum or plasma troponin i.cardiac measurement (mass/volume) - 01/29/17 08:52 Serum or plasma troponin i.cardiac measurement (mass/volume) < ng/ mL <0.30 THYROID STIMULATING HORMONE - 01/29/17 08:52 THYROID STIMULATING HORMONE 6.61 u[iU]/mL 0.35-4.94 Capillary blood glucose measurement by glucometer (mass/volume) - 01/29/17 11: 35 Capillary blood glucose measurement by glucometer (mass/volume) 444 mg/dL 70-110 RED CELLS LEUKO REDUCED AS1 - 01/29/17 13:20 RED CELLS LEUKO REDUCED AS1 TRANSFUSED 01/29/17 2205 NRG Blood type T Indirect antibody screen panel - 01/29/17 13:20 ABO+Rh group AP NRG Transfusion band number [id number] Blood group antibody screen POSITIVE NRG Blood group antibodies identified - 01/29/17 13:20 Blood group antibodies identified [facility] Capillary blood glucose measurement by glucometer (mass/volume) - 01/29/17 15: 07 Capillary blood glucose measurement by glucometer (mass/volume) 290 mg/dL 70-110 Capillary blood glucose measurement by glucometer (mass/volume) - 01/29/17 19: 08 Capillary blood glucose measurement by glucometer (mass/volume) 295 mg/dL 70-110 Capillary blood glucose measurement by glucometer (mass/volume) - 01/29/17 20: 39 Capillary blood glucose measurement by glucometer (mass/volume) 309 mg/dL 70-110 Automated blood complete blood count (hemogram) panel - 01/30/17 03:46 Blood leukocytes automated count (number/volume) 8.5 10*3/uL 4.3-11.0 Blood erythrocytes automated count (number/volume) 3.11 10*6/uL 4.35-5.85 Venous blood hemoglobin measurement (mass/volume) 9.2 g/dL 11.5-16.0 Blood hematocrit (volume fraction) 29 % 35-52 Automated erythrocyte mean corpuscular volume 94 [foz_us] 80-99 Automated erythrocyte mean corpuscular hemoglobin (mass per erythrocyte) 30 pg 25-34 Automated erythrocyte mean corpuscular hemoglobin concentration measurement ( mass/volume) 31 g/dL 32-36 Automated erythrocyte distribution width ratio 16.8 % 10.0-14.5 Automated blood platelet count (count/volume) 189 10*3/uL 130-400 Automated blood platelet mean volume measurement 11.0 [foz_us] 7.4-10.4 Automated reticulocyte percentage - 01/30/17 03:46 Blood reticulocytes count (number/volume) 179 10*9/L 24- 90 Blood reticulocytes/100 erythrocytes 5.75 % 0.50-2.40 Comprehensive metabolic panel - 01/30/17 03:46 Serum or plasma sodium measurement (moles/volume) 136 mmol/L 135-145 Serum or plasma potassium measurement (moles/volume) 5.0 mmol/L 3.6-5.0 Serum or plasma chloride measurement (moles/volume) 106 mmol/L 98-107 Carbon dioxide 19 mmol/L 21-32 Serum or plasma anion gap determination (moles/volume) 11 mmol/L 5-14 Serum or plasma urea nitrogen measurement (mass/volume) 15 mg/dL 7-18 Serum or plasma creatinine measurement (mass/volume) 1.28 mg/dL 0.60-1.30 Serum or plasma urea nitrogen/creatinine mass ratio 12 NRG Serum or plasma creatinine measurement with calculation of estimated glomerular filtration rate 43 NRG Serum or plasma glucose measurement (mass/volume) 398 mg/dL 70-105 Serum or plasma calcium measurement (mass/volume) 8.3 mg/dL 8.5-10.1 Serum or plasma total bilirubin measurement (mass/volume) 1.3 mg/dL 0.1-1.0 Serum or plasma alkaline phosphatase measurement (enzymatic activity/volume) 49 U/L 40-136 Serum or plasma aspartate aminotransferase measurement (enzymatic activity/ volume) 44 U/L 5-34 Serum or plasma alanine aminotransferase measurement (enzymatic activity/volume ) 23 U/L 0-55 Serum or plasma protein measurement (mass/volume) 6.8 g/dL 6.4-8.2 Serum or plasma albumin measurement (mass/volume) 3.4 g/dL 3.2-4.5 Serum or plasma lithium measurement (moles/volume) - 01/30/17 03:46 BNP level 535.3 pg/mL <100.0 Serum or plasma troponin i.cardiac measurement (mass/volume) - 01/30/17 03:46 Serum or plasma troponin i.cardiac measurement (mass/volume) 0.81 ng /mL <0.30 THYROID STIMULATING HORMONE - 01/30/17 03:46 THYROID STIMULATING HORMONE 4.95 u[iU]/mL 0.35-4.94 Digoxin - 01/30/17 03:46 Digoxin 0.71 ng/mL 0.80-2.00 Hemoglobin A1c - 01/30/17 03:46 Hemoglobin A1c 8.1 % 4.5-6.2 PT panel in platelet poor plasma by coagulation assay - 01/30/17 09:40 Prothrombin time (PT) in platelet poor plasma by coagulation assay 14.9 s 12.2-14.7 INR in platelet poor plasma or blood by coagulation assay 1.2 0.8-1.4 Activated partial thromboplastin time (aPTT) in platelet poor plasma bycoagulation assay - 01/30/17 09:40 Activated partial thromboplastin time (aPTT) in platelet poor plasma bycoagulation assay 39 s 24-35 Capillary blood glucose measurement by glucometer (mass/volume) - 01/30/17 12: 07 Capillary blood glucose measurement by glucometer (mass/volume) 362 mg/dL 70-110 Capillary blood glucose measurement by glucometer (mass/volume) - 01/30/17 16: 30 Capillary blood glucose measurement by glucometer (mass/volume) 348 mg/dL 70-110 Capillary blood glucose measurement by glucometer (mass/volume) - 01/30/17 20: 30 Capillary blood glucose measurement by glucometer (mass/volume) 366 mg/dL 70-110 Complete blood count (CBC) with automated white blood cell (WBC) differential - 01/31/17 04:11 Blood leukocytes automated count (number/volume) 8.2 10*3/uL 4.3-11.0 Blood erythrocytes automated count (number/volume) 2.95 10*6/uL 4.35-5.85 Venous blood hemoglobin measurement (mass/volume) 8.7 g/dL 11.5-16.0 Blood hematocrit (volume fraction) 28 % 35-52 Automated erythrocyte mean corpuscular volume 96 [foz_us] 80-99 Automated erythrocyte mean corpuscular hemoglobin (mass per erythrocyte) 30 pg 25-34 Automated erythrocyte mean corpuscular hemoglobin concentration measurement ( mass/volume) 31 g/dL 32-36 Automated erythrocyte distribution width ratio 17.2 % 10.0-14.5 Automated blood platelet count (count/volume) 173 10*3/uL 130-400 Automated blood platelet mean volume measurement 10.6 [foz_us] 7.4-10.4 Automated blood neutrophils/100 leukocytes 69 % 42-75 Automated blood lymphocytes/100 leukocytes 18 % 12-44 Blood monocytes/100 leukocytes 9 % 0-12 Automated blood eosinophils/100 leukocytes 4 % 0-10 Automated blood basophils/100 leukocytes 0 % 0-10 Blood neutrophils automated count (number/volume) 5.6 10*3 1.8-7.8 Blood lymphocytes automated count (number/volume) 1.5 10*3 1.0-4.0 Blood monocytes automated count (number/volume) 0.7 10*3 0.0-1.0 Automated eosinophil count 0.3 10*3/uL 0.0-0.3 Automated blood basophil count (count/volume) 0.0 10*3/uL 0.0-0.1 Comprehensive metabolic panel - 01/31/17 04:11 Serum or plasma sodium measurement (moles/volume) 136 mmol/L 135-145 Serum or plasma potassium measurement (moles/volume) 4.6 mmol/L 3.6-5.0 Serum or plasma chloride measurement (moles/volume) 105 mmol/L 98-107 Carbon dioxide 23 mmol/L 21-32 Serum or plasma anion gap determination (moles/volume) 8 mmol/L 5-14 Serum or plasma urea nitrogen measurement (mass/volume) 18 mg/dL 7-18 Serum or plasma creatinine measurement (mass/volume) 1.33 mg/dL 0.60-1.30 Serum or plasma urea nitrogen/creatinine mass ratio 14 NRG Serum or plasma creatinine measurement with calculation of estimated glomerular filtration rate 41 NRG Serum or plasma glucose measurement (mass/volume) 346 mg/dL 70-105 Serum or plasma calcium measurement (mass/volume) 8.3 mg/dL 8.5-10.1 Serum or plasma total bilirubin measurement (mass/volume) 0.9 mg/dL 0.1-1.0 Serum or plasma alkaline phosphatase measurement (enzymatic activity/volume) 49 U/L 40-136 Serum or plasma aspartate aminotransferase measurement (enzymatic activity/ volume) 41 U/L 5-34 Serum or plasma alanine aminotransferase measurement (enzymatic activity/volume ) 20 U/L 0-55 Serum or plasma protein measurement (mass/volume) 6.6 g/dL 6.4-8.2 Serum or plasma albumin measurement (mass/volume) 3.4 g/dL 3.2-4.5 Serum or plasma phosphate measurement (mass/volume) - 01/31/17 04:11 Serum or plasma phosphate measurement (mass/volume) 1.2 mg/dL 2.3-4.7 Magnesium - 01/31/17 04:11 Magnesium 1.6 mg/dL 1.8-2.4 Capillary blood glucose measurement by glucometer (mass/volume) - 01/31/17 11: 04 Capillary blood glucose measurement by glucometer (mass/volume) 525 mg/dL 70-110 Lipid 1996 panel - 05/12/17 15:19 Serum or plasma triglyceride measurement (mass/volume) 232 mg/dL <150 Serum or plasma cholesterol measurement (mass/volume) 231 mg/dL < 200 Serum or plasma cholesterol in HDL measurement (mass/volume) 45 mg/ dL 40-60 Cholesterol in LDL [mass/volume] in serum or plasma by direct assay 143 mg/dL 1-129 Serum or plasma cholesterol in VLDL measurement (mass/volume) 46 mg/ dL 5-40 Serum or plasma thyroxine (T4) free measurement (mass/volume) - 05/12/17 15:19 Serum or plasma thyroxine (T4) free measurement (mass/volume) 1.02 ng/dL 0.70-1.48 Hemoglobin A1c - 05/12/17 15:19 Hemoglobin A1c 7.2 % 4.5-6.2 Serum or plasma thyrotropin measurement by detection limit <=0.05 miu/l (units/ volume) - 05/12/17 15:19 Serum or plasma thyrotropin measurement by detection limit <=0.05 miu/l (units/ volume) 6.32 u[iU]/mL 0.35-4.94 PROTEIN, TOTAL W/CREAT, RANDOM URINE - 05/18/17 16:11 CREATININE, RANDOM URINE 116 mg/dL 20-320 PROTEIN/CREATININE RATIO 181 mg/g creat 21-161 PROTEIN, TOTAL, RANDOM UR 21 mg/dL 5-24 Complete blood count (CBC) with automated white blood cell (WBC) differential - 06/10/17 11:45 Blood leukocytes automated count (number/volume) 5.4 10*3/uL 4.3-11.0 Blood erythrocytes automated count (number/volume) 2.45 10*6/uL 4.35-5.85 Venous blood hemoglobin measurement (mass/volume) 7.4 g/dL 11.5-16.0 Blood hematocrit (volume fraction) 25 % 35-52 Automated erythrocyte mean corpuscular volume 101 [foz_us] 80-99 Automated erythrocyte mean corpuscular hemoglobin (mass per erythrocyte) 30 pg 25-34 Automated erythrocyte mean corpuscular hemoglobin concentration measurement ( mass/volume) 30 g/dL 32-36 Automated erythrocyte distribution width ratio 14.8 % 10.0-14.5 Automated blood platelet count (count/volume) 162 10*3/uL 130-400 Automated blood platelet mean volume measurement 9.6 [foz_us] 7.4-10.4 Automated blood neutrophils/100 leukocytes 66 % 42-75 Automated blood lymphocytes/100 leukocytes 21 % 12-44 Blood monocytes/100 leukocytes 7 % 0-12 Automated blood eosinophils/100 leukocytes 6 % 0-10 Automated blood basophils/100 leukocytes 0 % 0-10 Blood neutrophils automated count (number/volume) 3.5 10*3 1.8-7.8 Blood lymphocytes automated count (number/volume) 1.1 10*3 1.0-4.0 Blood monocytes automated count (number/volume) 0.4 10*3 0.0-1.0 Automated eosinophil count 0.3 10*3/uL 0.0-0.3 Automated blood basophil count (count/volume) 0.0 10*3/uL 0.0-0.1 Automated reticulocyte percentage - 06/10/17 11:45 Blood reticulocytes count (number/volume) 128 10*9/L 24- 90 Blood reticulocytes/100 erythrocytes 5.21 % 0.50-2.40 RED CELLS LEUKO REDUCED AS1 - 06/10/17 11:45 RED CELLS LEUKO REDUCED AS1 PRSMD TRFSD 06/12/17 0855 [facility] [id number] - 06/10/17 11:45 [id number] SPECIMEN AVAILABLE [facility] Blood type T Indirect antibody screen panel - 06/10/17 11:45 ABO+Rh group AP [facility] Transfusion band number [id number] [facility] Blood group antibody screen POSITIVE NR Blood group antibodies identified - 06/10/17 11:45 Blood group antibodies identified JKA [facility] Comprehensive metabolic panel - 06/10/17 11:45 Serum or plasma sodium measurement (moles/volume) 140 mmol/L 135-145 Serum or plasma potassium measurement (moles/volume) 4.7 mmol/L 3.6-5.0 Serum or plasma chloride measurement (moles/volume) 102 mmol/L 98-107 Carbon dioxide 28 mmol/L 21-32 Serum or plasma anion gap determination (moles/volume) 10 mmol/L 5-14 Serum or plasma urea nitrogen measurement (mass/volume) 20 mg/dL 7-18 Serum or plasma creatinine measurement (mass/volume) 1.13 mg/dL 0.60-1.30 Serum or plasma urea nitrogen/creatinine mass ratio 18 NRG Serum or plasma creatinine measurement with calculation of estimated glomerular filtration rate 49 NRG Serum or plasma glucose measurement (mass/volume) 245 mg/dL 70-105 Serum or plasma calcium measurement (mass/volume) 9.1 mg/dL 8.5-10.1 Serum or plasma total bilirubin measurement (mass/volume) 0.7 mg/dL 0.1-1.0 Serum or plasma alkaline phosphatase measurement (enzymatic activity/volume) 51 U/L 40-136 Serum or plasma aspartate aminotransferase measurement (enzymatic activity/ volume) 40 U/L 5-34 Serum or plasma alanine aminotransferase measurement (enzymatic activity/volume ) 22 U/L 0-55 Serum or plasma protein measurement (mass/volume) 7.1 g/dL 6.4-8.2 Serum or plasma albumin measurement (mass/volume) 3.5 g/dL 3.2-4.5 Serum or plasma ferritin measurement (mass/volume) - 06/10/17 11:45 Serum or plasma ferritin measurement (mass/volume) 45.0 % 15.0-150.0 [id number] - 07/01/17 12:54 [id number] SPECIMEN AVAILABLE NRG Encounters ACCT No. Visit Date/Time Discharge Status Pt. Type Provider Facility Loc./Unit Complaint [id number] 09/03/2017 12:46:00 09/03/2017 23:59:59 CLS Outpatient SHIREEN AGARWAL [facility] ONC [id number] 07/17/2017 14:09:00 07/28/2017 10:19:00 DIS Outpatient BRANDEN HAIDER MD [facility] ONC [id number] 07/17/2017 09:59:00 07/17/2017 13:30:00 DIS Outpatient CARMINE BORRERO DO [facility] ENDO GI BLEED [id number] 07/16/2017 15:00:00 07/16/2017 15:00:00 CAN Preadmit CARMINE BORRERO DO [facility] PREOP GI BLEED [id number] 07/01/2017 12:12:00 07/07/2017 09:04:00 DIS Outpatient SHIREEN AGARWAL [facility] ONC [id number] 06/16/2017 10:05:00 06/16/2017 00:01:00 DIS Outpatient SHIREEN AGARWAL [facility] ONC [id number] 06/14/2017 14:39:00 06/14/2017 23:59:59 CLS Outpatient RACHELE JEFFERSON [facility] LAB ANEMIA,SHORTNESS OF BREATH [id number] 05/21/2017 12:23:00 05/21/2017 23:59:59 CLS Outpatient SABRINA ROSSI DO [facility] RAD ABD PAIN, ANEMIA [id number] 05/12/2017 09:09:00 05/12/2017 23:59:59 CLS Outpatient JAMES TORRES MD [facility] LAB [id number] 04/07/2017 06:54:00 04/07/2017 23:59:59 CLS Outpatient SABRINA ROSSI DO [facility] ENDO INFLAMMATION [id number] 04/06/2017 11:00:00 04/06/2017 11:22:00 DIS Outpatient SABRINA ROSSI DO [facility] PREOP CAPSULE ENDO [id number] 03/04/2017 10:21:00 03/09/2017 00:01:00 DIS Outpatient ANY SHIREEN N [facility] ONC [id number] 03/02/2017 07:20:00 03/02/2017 23:59:59 CLS Outpatient SABRINA ROSSI DO [facility] ENDO ANEMIA [id number] 02/23/2017 05:40:00 02/23/2017 11:52:00 DIS Outpatient SABRINA ROSSI DO [facility] PREOP ANEMIA [id number] 01/29/2017 09:44:00 01/31/2017 15:52:00 DIS Inpatient JAMES TORRES MD [facility] ICU A-FIB WITH RVR [id number] 01/02/2017 06:29:00 01/02/2017 08:45:00 DIS Outpatient SABRINA ROSSI DO [facility] ENDO ANEMIA; OCCULT POSITIVE STOOLS [id number] 12/31/2016 11:10:00 01/01/2017 10:01:00 DIS Outpatient MACIEL WELCH APRN [facility] LAB ANEMIA [id number] 12/31/2016 12:53:00 12/31/2016 23:59:59 CLS Outpatient FLO WOODSABRINA Joe [facility] PREOP ANEMIA, OCCULT POSITIVE STOOL [id number] 12/17/2016 09:30:00 12/17/2016 23:59:59 CLS Preadmit Wei ALCARAZ MD [facility] CARD AFIB,PSVT [id number] 10/10/2016 08:46:00 12/16/2016 00:01:00 DIS Outpatient Wei ALCARAZ MD [facility] CARD AFIB,PSVT [id number] 10/24/2016 08:37:00 11/03/2016 00:01:00 DIS Outpatient SHIREEN AGARWAL [facility] ONC [id number] 10/24/2016 08:41:00 10/24/2016 23:59:59 CLS Outpatient BERNY ALCARAZ MD [facility] LAB [id number] 09/15/2016 12:15:00 09/15/2016 23:59:59 CLS Outpatient BERNY ALCARAZ MD [facility] LAB [id number] 11/27/2015 15:28:00 01/07/2016 00:01:00 DIS Outpatient SHIREEN AGARWAL [facility] ONC [id number] 10/04/2015 13:17:00 10/04/2015 23:59:59 CLS Outpatient SHIREEN AGARWAL [facility] ONC [id number] 06/12/2015 11:11:00 06/13/2015 00:01:00 DIS Outpatient SHIREEN AGARWAL [facility] ONC [id number] 06/04/2015 15:34:00 06/04/2015 23:59:59 CLS Preadmit RACHELE JEFFERSON [facility] ONC [id number] 03/29/2015 11:35:00 03/29/2015 23:59:59 CLS Outpatient WU DIOR MD [facility] LAB [id number] 03/15/2015 14:54:00 03/15/2015 23:59:59 CLS Outpatient WU DIOR MD [facility] LAB [id number] 11/23/2014 13:42:00 12/27/2014 00:01:00 DIS Outpatient SHIREEN AGARWAL [facility] ONC [id number] 10/05/2014 13:42:00 10/05/2014 23:59:59 CLS Outpatient CLAUDE GABRIEL MD [facility] LAB [id number] 10/05/2014 12:00:00 10/05/2014 23:59:59 CLS Outpatient CLAUDE GABRIEL MD [facility] RAD POST SPOT URINE [id number] 07/17/2014 14:31:00 07/17/2014 23:59:59 CLS Outpatient SHIREEN AGARWAL [facility] ONC [id number] 05/24/2014 13:33:00 05/24/2014 23:59:59 CLS Outpatient ARNIE MCKEON MD, FACC, FACP CCDS [facility] LAB [id number] 04/03/2014 14:00:00 05/16/2014 00:01:00 DIS Outpatient SHIREEN AGARWAL [facility] ONC [id number] 03/24/2014 06:46:00 03/24/2014 09:55:00 DIS Outpatient TONIE CRAWFORD MD [facility] SDC SCREENING; ANEMIA [id number] 03/23/2014 07:22:00 03/23/2014 23:59:59 CLS Outpatient TONIE CRAWFORD MD [facility] PREOP SCREENING; ANEMIA [id number] 03/02/2014 09:01:00 03/02/2014 16:00:00 DIS Outpatient LINDA KHOURY FACC, ARNIE FACP CCDS [facility] CATH CP,CAD,HTN [id number] 02/07/2014 07:52:00 02/07/2014 23:59:59 CLS Outpatient LINDA KHOURY FACC, ARNIE FACP CCDS [facility] CARD AFIB [id number] 03/31/2013 08:55:00 03/31/2013 23:59:59 CLS Outpatient CHICHI RIVAS KYM [facility] RAD MID EPIGASTRIC PAIN [id number] 10/05/2014 11:59:00 Document Registration [id number] 10/05/2014 11:59:00 Document Registration [id number] 10/05/2014 11:59:00 Document Registration [id number] 08/24/2014 14:23:00 Document Registration [id number] 08/21/2014 07:51:00 Document Registration [id number] 04/03/2012 14:05:00 Document Registration [id number] 03/31/2016 15:06:00 03/31/2016 23:59:00 DIS Outpatient MALVIN DOMINGUEZ [facility] 03/15/2015 14:54:36 ACT Document Registration [id number] 09/01/2017 15:20:00 09/01/2017 23:59:59 CLS Outpatient JAMES TORRES [facility] [id number] 05/18/2017 16:00:00 Document Registration
--- OUTSIDE RECORDS SUMMARY | 2017-09-13 06:38 | XMS REPORT | Continuity of Care Document ---
Author Author [facility] Organization [facility] Address Unknown Phone Unavailable Allergies Active Description Code Type Severity Reaction Onset Reported/Identified Relationship to Patient Clinical Status Yes methotrexate [id number] Drug Allergy Unknown N/A 03/24/2014 Yes Qexrsth-Vbd-Cko Reductase Inhibitor [id number] Drug Allergy Moderate GI UPSET, N/V 01/01/2017 Yes cefadroxil [id number] Drug Allergy Mild N/A 01/01/2017 Yes diltiazem [id number] Drug Allergy Unknown mouth burning a 02/23/2017 Medications There is no data. Problems Date Dx Coded Attending Type Code Diagnosis Diagnosed By SHIREEN AGARWAL Ot D50.9 IRON DEFICIENCY ANEMIA, UNSPECIFIED SHIREEN AGARWAL Ot E03.9 HYPOTHYROIDISM, UNSPECIFIED SHIREEN AGARWAL Ot 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 W DIABETIC BULB FILLER SHIREEN AGARWAL Ot I12.9 HYPERTENSIVE CHRONIC KIDNEY DISEASE W ST SHIREEN AGARWAL Ot I25.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[place] CORONARY SHIREEN AGARWAL Ot I48.91 UNSPECIFIED ATRIAL FIBRILLATION SHIREEN AGARWAL Ot N18.3 CHRONIC KIDNEY DISEASE, STAGE 3 (MODERAT SHIREEN AGARWAL Ot Z79.899 OTHER [place] (CURRENT) DRUG THERAPY 05/14/1018 BRANDEN HAIDER MD, Ot D50.9 IRON DEFICIENCY ANEMIA, UNSPECIFIED 05/14/1018 BRANDEN HAIDER MD Ot E03.9 HYPOTHYROIDISM, UNSPECIFIED 05/14/1018 BRANDEN HAIDER MD Ot 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 W DIABETIC BULB FILLER 05/14/1018 BRANDEN HAIDER MD Ot I12.9 HYPERTENSIVE CHRONIC KIDNEY DISEASE W ST 05/14/1018 MELIZA MD, OTERO Ot I25.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[place] CORONARY 05/14/1018 BRANDEN HAIDER MD Ot I48.91 UNSPECIFIED ATRIAL FIBRILLATION 05/14/1018 BRANDEN HAIDER MD Ot N18.3 CHRONIC KIDNEY DISEASE, STAGE 3 (MODERAT 05/14/1018 BRANDEN HAIDER MD Ot Z79.899 OTHER GROUP HOME (CURRENT) DRUG THERAPY 05/22/2010 Ot 250.00 05/22/2010 Ot 272.4 05/22/2010 Ot 401.9 05/22/2010 Ot 414.01 05/22/2010 Ot 427.31 03/02/2014 LINDA GONZALESC, ALI FACP CCDS Ot 244.9 HYPOTHYROIDISM NOS 03/02/2014 LINDA KHOURY FACC, ALI FACP CCDS Ot 250.00 DIAB NALLELY WO COMPL, TYPE II OR UNSPEC TY 03/02/2014 LINDA KHOURY FACC, ALI FACP CCDS Ot 272.4 HYPERLIPIDEMIA NEC/NOS 03/02/2014 LINDA KHOURY FACC, ALI FACP CCDS Ot 285.9 ANEMIA NOS 03/02/2014 LINDA KHOURY FACC, ALI FACP CCDS Ot 401.9 HYPERTENSION NOS 03/02/2014 LINDA KHOURY FACC, ALI FACP CCDS Ot 414.01 CORONARY ATHEROSCLEROSIS OF [place] CORON 03/02/2014 LINDA KHOURY FACFernanda, ALI FACP [...] BOBAN N Ot 414.01 CORONARY ATHEROSCLEROSIS OF [place] CORON 05/16/2014 ANY, BOBAN N Ot 585.3 [...] 06/02/2014 ANY, BOBAN N Ot 414.01 06/02/2014 AYN, BOBAN N Ot 585.3 06/05/2014 LINDA KHOURY [...] BOBAN N Ot 414.01 CORONARY ATHEROSCLEROSIS OF [place] CORON 08/30/2014 ANY, BOBAN N Ot 585.3 [...] 272.4 10/05/2014 Ot 250.00 10/05/2014 CHICHI RIVAS [employer] Ot 574.20 10/05/2014 ROB, CHICHI Neville [employer] Ot 789.1 10/05/2014 LINDA KHOURY FACC, ALI FACP CCDS Ot 401.9 10/05/2014 LINDA KHOURY FACC, ALI FACP CCDS Ot 414.00 10/05/2014 LINDA KHOURY FACC, ALI FACP CCDS Ot 427.31 10/05/2014 TY KHOURY, TONIE Diaz Ot V72.84 10/05/2014 LINDA KHOURY FACC, ALI FACP CCDS Ot 250.00 10/05/2014 LINDA KHOURY FACC, ALI FACP CCDS Ot 401.9 10/05/2014 LINAD KHOURY FACC, ALI FACP CCDS Ot [...] 10/05/2014 Ot 250.00 10/05/2014 ROB CHICHI H [employer] Ot 574.20 10/05/2014 CHICHI RIVAS [employer] Ot 789.1 10/05/2014 LINDA KHOURY FACC, ALI FACP CCDS Ot 401.9 10/05/2014 LINDA KHOURY [facility], ALI FACP CCDS Ot 414.00 10/05/2014 LINDA KHOURY [facility], ALI FACP CCDS Ot 427.31 10/05/2014 TY [...] BOBAN N Ot 414.01 CORONARY ATHEROSCLEROSIS OF [place] CORON 12/27/2014 ANY, BOBAN N Ot 585.3 [...] AGARWAL Ot I25.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[place] CORONARY 06/13/2015 SHIREEN AGARWAL Ot I48.91 UNSPECIFIED ATRIAL FIBRILLATION 06/13/2015 SHIREEN AGARWAL Ot N18.3 CHRONIC KIDNEY DISEASE, STAGE 3 (MODERAT 06/13/2015 SHIREEN AGARWAL Ot V58.69 OTH MED,LT,CURRENT USE 06/13/2015 SHIREEN AGARWAL Ot Z79.899 OTHER GROUP HOME (CURRENT) DRUG THERAPY 09/27/2015 SHIREEN AGARWAL Ot D64.9 09/27/2015 SHIREEN AGARWAL Ot E03.9 09/27/2015 SHIREEN AGARWAL Ot E11.9 09/27/2015 SHIREEN AGARWAL Ot I12.9 09/27/2015 SHIREEN AGARWAL Ot I25.10 09/27/2015 SHIREEN AGARWAL Ot I48.91 09/27/2015 SHIREEN AGARWAL Ot N18.3 09/27/2015 SHIREEN AGARWAL Ot Z79.899 09/27/2015 Ot 401.9 09/27/2015 Ot 272.4 09/27/2015 Ot 250.00 09/27/2015 CHICHI RIVAS [employer] Ot 574.20 09/27/2015 CHICHI RIVAS [employer] Ot 789.1 09/27/2015 LINDA KHOURY FAC, ALI FACP CCDS Ot 401.9 09/27/2015 LINDA KHOURY [facility], ALI FACP CCDS Ot 414.00 09/27/2015 LINDA [...] 09/27/2015 ANY, BOBAN N Ot I25.10 09/27/2015 AYN, BOBAN N Ot I48.91 09/27/2015 ANY, BOBAN [...] N Ot I25.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[place] CORONARY 10/09/2015 ANY BOBAN N Ot I48.91 UNSPECIFIED ATRIAL FIBRILLATION 10/09/2015 ANY, BOBAN N Ot N18.3 CHRONIC KIDNEY DISEASE, STAGE 3 (MODERAT 10/09/2015 ANY, BOBAN N Ot Z79.899 OTHER [place] (CURRENT) DRUG THERAPY 10/17/2015 ANY, BOBAN N Ot D64.9 ANEMIA, UNSPECIFIED 10/17/2015 ANY, BOBAN N Ot E03.9 HYPOTHYROIDISM, UNSPECIFIED 10/17/2015 ANY, BOBAN N Ot 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 W DIABETIC BULB FILLER 10/17/2015 ANY, BOBAN N Ot I12.9 HYPERTENSIVE CHRONIC KIDNEY DISEASE W ST 10/17/2015 ANY, BOBAN N Ot I25.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[place] CORONARY 10/17/2015 ANY, BOBAN N Ot I48.91 UNSPECIFIED ATRIAL FIBRILLATION 10/17/2015 ANY, BOBAN N Ot N18.3 CHRONIC KIDNEY DISEASE, STAGE 3 (MODERAT 10/17/2015 ANY, BOBAN N Ot Z79.899 OTHER GROUP HOME (CURRENT) DRUG THERAPY 10/19/2015 ANY, BOBAN N Ot D64.9 ANEMIA, UNSPECIFIED 10/19/2015 ANY, BOBAN N Ot E03.9 HYPOTHYROIDISM, UNSPECIFIED 10/19/2015 ANY, BOBAN N Ot 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 W DIABETIC BULB FILLER 10/19/2015 ANY, BOBAN N Ot I12.9 HYPERTENSIVE CHRONIC KIDNEY DISEASE W ST 10/19/2015 ANY, BOBAN N Ot I25.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[place] CORONARY 10/19/2015 ANY, BOBAN N Ot I48.91 UNSPECIFIED ATRIAL FIBRILLATION 10/19/2015 ANY, BOBAN N Ot N18.3 CHRONIC KIDNEY DISEASE, STAGE 3 (MODERAT 10/19/2015 ANY, BOBAN N Ot Z79.899 OTHER [place] (CURRENT) DRUG THERAPY 11/16/2015 ANY, BOBAN N Ot D50.9 IRON DEFICIENCY ANEMIA, UNSPECIFIED 11/16/2015 ANY, BOBAN N Ot Z79.899 OTHER [place] (CURRENT) DRUG THERAPY 12/03/2015 ANY, BOBAN N Ot D50.9 IRON DEFICIENCY ANEMIA, UNSPECIFIED 12/03/2015 ANY, BOBAN N Ot Z79.899 OTHER [place] (CURRENT) DRUG THERAPY 01/03/2016 Ot 272.4 HYPERLIPIDEMIA NEC/NOS 01/03/2016 Ot 250.00 DIAB NALLELY WO COMPL, TYPE II OR UNSPEC TY 01/03/2016 ROB, CHICHI H [employer] Ot 574.20 CHOLELITHIASIS NOS 01/03/2016 CHICHI RIVAS [employer] Ot 789.1 HEPATOMEGALY 01/03/2016 LINDA KHOURY FAC, [...] 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 W DIABETIC BULB FILLER 01/03/2016 ANY, BOBAN N Ot I12.9 HYPERTENSIVE CHRONIC KIDNEY DISEASE W ST 01/03/2016 ANY, BOBAN N Ot I25.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[place] CORONARY 01/03/2016 ANY, BOBAN N Ot I48.91 UNSPECIFIED ATRIAL FIBRILLATION 01/03/2016 ANY, BOBAN N Ot N18.3 CHRONIC KIDNEY DISEASE, STAGE 3 (MODERAT 01/03/2016 ANY, BOBAN N Ot Z79.899 OTHER [place] (CURRENT) DRUG THERAPY 01/03/2016 ANY, BOBAN N Ot D50.9 IRON DEFICIENCY ANEMIA, UNSPECIFIED 01/03/2016 ANY, BOBAN N Ot Z79.899 OTHER GROUP HOME (CURRENT) DRUG THERAPY 01/03/2016 ANY, BOBAN N Ot D64.9 ANEMIA, UNSPECIFIED 01/03/2016 ANY, BOBAN N Ot E03.9 HYPOTHYROIDISM, UNSPECIFIED 01/03/2016 ANY, BOBAN N Ot 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 W DIABETIC BULB FILLER 01/03/2016 ANY, BOBAN N Ot I12.9 HYPERTENSIVE CHRONIC KIDNEY DISEASE W ST 01/03/2016 ANY, BOBAN N Ot I25.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[place] CORONARY 01/03/2016 ANY, BOBAN N Ot I48.91 UNSPECIFIED ATRIAL FIBRILLATION 01/03/2016 ANY, BOBAN N Ot N18.3 CHRONIC KIDNEY DISEASE, STAGE 3 (MODERAT 01/03/2016 ANY, BOBAN N Ot Z79.899 OTHER [place] (CURRENT) DRUG THERAPY 01/03/2016 Ot 272.4 HYPERLIPIDEMIA NEC/NOS 01/03/2016 Ot 250.00 DIAB NALLELY WO COMPL, TYPE II OR UNSPEC TY 01/03/2016 CHICHI RIVASP Ot 574.20 CHOLELITHIASIS NOS 01/03/2016 CHICHI RIVAS [employer] Ot 789.1 HEPATOMEGALY 01/03/2016 LINDA KHOURY FACC, [...] 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 W DIABETIC BULB FILLER 01/03/2016 SHIREEN AGARWAL N Ot I12.9 HYPERTENSIVE CHRONIC KIDNEY DISEASE W ST 01/03/2016 SHIREEN AGARWAL N Ot I25.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[place] CORONARY 01/03/2016 SHIREEN AGARWAL N Ot I48.91 UNSPECIFIED ATRIAL FIBRILLATION 01/03/2016 SHIREEN AGARWAL N Ot N18.3 CHRONIC KIDNEY DISEASE, STAGE 3 (MODERAT 01/03/2016 SHIREEN AGARWAL N Ot Z79.899 OTHER [place] (CURRENT) DRUG THERAPY 01/03/2016 SHIREEN AGARWAL N Ot D50.9 IRON DEFICIENCY ANEMIA, UNSPECIFIED 01/03/2016 SHIREEN AGARWAL N Ot Z79.899 OTHER [place] [place] (CURRENT) DRUG THERAPY 01/04/2016 Ot 272.4 HYPERLIPIDEMIA NEC/NOS 01/04/2016 Ot 250.00 DIAB NALLELY WO COMPL, TYPE II OR UNSPEC TY 01/04/2016 CHICHI RIVAS [employer] Ot 574.20 CHOLELITHIASIS NOS 01/04/2016 CHICHI RIVAS [employer] Ot 789.1 HEPATOMEGALY 01/04/2016 LINDA KHOURY FACC, [...] 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 W DIABETIC BULB FILLER 01/04/2016 SHIREEN AGARWAL Ot I12.9 HYPERTENSIVE CHRONIC KIDNEY DISEASE W ST 01/04/2016 SHIREEN AGARWAL Ot I25.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[place] CORONARY 01/04/2016 SHIREEN AGARWAL Ot I48.91 UNSPECIFIED ATRIAL FIBRILLATION 01/04/2016 SHIREEN AGARWAL Ot N18.3 CHRONIC KIDNEY DISEASE, STAGE 3 (MODERAT 01/04/2016 SHIREEN AGARWAL Ot Z79.899 OTHER [place] (CURRENT) DRUG THERAPY 01/04/2016 SHIREEN AGARWAL Ot D50.9 IRON DEFICIENCY ANEMIA, UNSPECIFIED 01/04/2016 SHIREEN AGARWAL Ot Z79.899 OTHER GROUP HOME (CURRENT) DRUG THERAPY 01/07/2016 SHIREEN AGARWAL Ot D50.9 IRON DEFICIENCY ANEMIA, UNSPECIFIED 01/07/2016 SHIREEN AGARWAL Ot Z79.899 OTHER [place] [place] (CURRENT) DRUG THERAPY 01/13/2016 SHIREEN AGARWAL Ot D50.9 IRON DEFICIENCY ANEMIA, UNSPECIFIED 01/13/2016 SHIREEN AGARWAL Ot Z79.899 OTHER [place] [place] (CURRENT) DRUG THERAPY 08/05/2016 Ot 250.00 DIAB NALLELY WO COMPL, TYPE II OR UNSPEC TY 08/05/2016 CHICHI RIVAS [employer] Ot 574.20 CHOLELITHIASIS NOS 08/05/2016 CHICHI RIVAS [employer] Ot 789.1 HEPATOMEGALY 08/05/2016 LINDA KHOURY FACC, [...] 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 W DIABETIC BULB FILLER 08/05/2016 SHIREEN AGARWAL N Ot I12.9 HYPERTENSIVE CHRONIC KIDNEY DISEASE W ST 08/05/2016 SHIREEN AGARWAL N Ot I25.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[place] CORONARY 08/05/2016 SHIREEN AGARWAL Ot I48.91 UNSPECIFIED ATRIAL FIBRILLATION 08/05/2016 SHIREEN AGARWAL Ot N18.3 CHRONIC KIDNEY DISEASE, STAGE 3 (MODERAT 08/05/2016 SHIREEN AGARWAL N Ot Z79.899 OTHER GROUP HOME (CURRENT) DRUG THERAPY 09/15/2016 SHIREEN AGARWAL N Ot D50.9 IRON DEFICIENCY ANEMIA, UNSPECIFIED 09/15/2016 SHIREEN AGARWAL N Ot E03.9 HYPOTHYROIDISM, UNSPECIFIED 09/15/2016 SHIREEN AGARWAL N Ot 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 W DIABETIC BULB FILLER 09/15/2016 SHIREEN AGARWAL N Ot I12.9 HYPERTENSIVE CHRONIC KIDNEY DISEASE W ST 09/15/2016 SHIREEN AGARWAL N Ot I25.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[place] CORONARY 09/15/2016 SHIREEN AGARWAL Ot I48.91 UNSPECIFIED ATRIAL FIBRILLATION 09/15/2016 SHIREEN AGARWAL Ot N18.3 CHRONIC KIDNEY DISEASE, STAGE 3 (MODERAT 09/15/2016 SHIREEN AGARWAL Ot Z79.899 OTHER [place] [place] (CURRENT) DRUG THERAPY 09/17/2016 Ot 250.00 DIAB NALLELY WO COMPL, TYPE II OR UNSPEC TY 09/17/2016 ROBCHICHI [employer] Ot 574.20 CHOLELITHIASIS NOS 09/17/2016 CHICHI RIVAS [employer] Ot 789.1 HEPATOMEGALY 09/17/2016 LINDA KHOURY FACC, [...] 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 W DIABETIC BULB FILLER 09/17/2016 ANY, BOBAN N Ot I12.9 HYPERTENSIVE CHRONIC KIDNEY DISEASE W ST 09/17/2016 ANY, BOBAN N Ot I25.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[place] CORONARY 09/17/2016 ANY, BOBAN N Ot I48.91 UNSPECIFIED ATRIAL FIBRILLATION 09/17/2016 ANY, BOBAN N Ot N18.3 CHRONIC KIDNEY DISEASE, STAGE 3 (MODERAT 09/17/2016 ANY, BOBAN N Ot Z79.899 OTHER [place] (CURRENT) DRUG THERAPY 09/17/2016 ANY, BOBAN N Ot D50.9 IRON DEFICIENCY ANEMIA, UNSPECIFIED 09/17/2016 ANY, BOBAN N Ot E03.9 HYPOTHYROIDISM, UNSPECIFIED 09/17/2016 ANY, BOBAN N Ot 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 W DIABETIC BULB FILLER 09/17/2016 ANY, BOBAN N Ot I12.9 HYPERTENSIVE CHRONIC KIDNEY DISEASE W ST 09/17/2016 ANY, BOBAN N Ot I25.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[place] CORONARY 09/17/2016 ANY, BOBAN N Ot I48.91 UNSPECIFIED ATRIAL FIBRILLATION 09/17/2016 ANY, BOBAN N Ot N18.3 CHRONIC KIDNEY DISEASE, STAGE 3 (MODERAT 09/17/2016 ANY, BOBAN N Ot Z79.899 OTHER GROUP HOME (CURRENT) DRUG THERAPY 09/17/2016 KIERAN KHOURY, BERNY Champion Ot I25.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[place] CORONARY 09/17/2016 Ot 250.00 DIAB NALLELY WO COMPL, TYPE II OR UNSPEC TY 09/17/2016 CHICHI RIVAS [employer] Ot 574.20 CHOLELITHIASIS NOS 09/17/2016 CHICHI RIVAS [employer] Ot 789.1 HEPATOMEGALY 09/17/2016 LINDA KHOURY FACC, [...] 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 W DIABETIC BULB FILLER 09/17/2016 ANY, BOBAN N Ot I12.9 HYPERTENSIVE CHRONIC KIDNEY DISEASE W ST 09/17/2016 ANY, BOBAN N Ot I25.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[place] CORONARY 09/17/2016 ANY, BOBAN N Ot I48.91 UNSPECIFIED ATRIAL FIBRILLATION 09/17/2016 ANY, BOBAN N Ot N18.3 CHRONIC KIDNEY DISEASE, STAGE 3 (MODERAT 09/17/2016 ANY, BOBAN N Ot Z79.899 OTHER [place] (CURRENT) DRUG THERAPY 09/17/2016 ANY, BOBAN N Ot D50.9 IRON DEFICIENCY ANEMIA, UNSPECIFIED 09/17/2016 ANY, BOBAN N Ot E03.9 HYPOTHYROIDISM, UNSPECIFIED 09/17/2016 ANY, BOBAN N Ot 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 W DIABETIC BULB FILLER 09/17/2016 ANY, BOBAN N Ot I12.9 HYPERTENSIVE CHRONIC KIDNEY DISEASE W ST 09/17/2016 ANY, BOBAN N Ot I25.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[place] CORONARY 09/17/2016 ANY, BOBAN N Ot I48.91 UNSPECIFIED ATRIAL FIBRILLATION 09/17/2016 ANY, BOBAN N Ot N18.3 CHRONIC KIDNEY DISEASE, STAGE 3 (MODERAT 09/17/2016 ANY, BOBAN N Ot Z79.899 OTHER GROUP HOME (CURRENT) DRUG THERAPY 09/17/2016 KIERAN KHOURY, BERNY Champion Ot I25.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[place] CORONARY 09/17/2016 Ot 250.00 DIAB NALLELY WO COMPL, TYPE II OR UNSPEC TY 09/17/2016 CHICHI RIVAS Ot 574.20 CHOLELITHIASIS NOS 09/17/2016 CHICHI RIVAS [employer] Ot 789.1 HEPATOMEGALY 09/17/2016 LINDA KHOURY FAC, [...] 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 W DIABETIC BULB FILLER 09/17/2016 ANY, BOBAN N Ot I12.9 HYPERTENSIVE CHRONIC KIDNEY DISEASE W ST 09/17/2016 ANY, BOBAN N Ot I25.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[place] CORONARY 09/17/2016 ANY, BOBAN N Ot I48.91 UNSPECIFIED ATRIAL FIBRILLATION 09/17/2016 ANY, BOBAN N Ot N18.3 CHRONIC KIDNEY DISEASE, STAGE 3 (MODERAT 09/17/2016 ANY, BOBAN N Ot Z79.899 OTHER [place] (CURRENT) DRUG THERAPY 09/17/2016 ANY, BOBAN N Ot D50.9 IRON DEFICIENCY ANEMIA, UNSPECIFIED 09/17/2016 ANY, BOBAN N Ot E03.9 HYPOTHYROIDISM, UNSPECIFIED 09/17/2016 ANY, BOBAN N Ot 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 W DIABETIC BULB FILLER 09/17/2016 ANY, BOBAN N Ot I12.9 HYPERTENSIVE CHRONIC KIDNEY DISEASE W ST 09/17/2016 ANY, BOBAN N Ot I25.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[place] CORONARY 09/17/2016 ANY, BOBAN N Ot I48.91 UNSPECIFIED ATRIAL FIBRILLATION 09/17/2016 ANY, BOBAN N Ot N18.3 CHRONIC KIDNEY DISEASE, STAGE 3 (MODERAT 09/17/2016 ANY, BOBAN N Ot Z79.899 OTHER [place] [place] (CURRENT) DRUG THERAPY 09/17/2016 KIERAN KHOURY, BERNY R Ot I25.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[place] CORONARY 09/17/2016 ANY, BOBAN N Ot D50.9 IRON DEFICIENCY ANEMIA, UNSPECIFIED 09/17/2016 ANY, BOBAN N Ot E03.9 HYPOTHYROIDISM, UNSPECIFIED 09/17/2016 ANY, BOBAN N Ot 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 W DIABETIC BULB FILLER 09/17/2016 ANY, BOBAN N Ot I12.9 HYPERTENSIVE CHRONIC KIDNEY DISEASE W ST 09/17/2016 SHIREEN AGARWAL Ot I25.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[place] CORONARY 09/17/2016 SHIREEN AGARWAL Ot I48.91 UNSPECIFIED ATRIAL FIBRILLATION 09/17/2016 SHIREEN AGARWAL Ot N18.3 CHRONIC KIDNEY DISEASE, STAGE 3 (MODERAT 09/17/2016 SHIREEN AGARWAL Ot Z79.899 OTHER [employer] [place] (CURRENT) DRUG THERAPY 09/17/2016 BERNY ALCARAZ MD Ot I25.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[place] CORONARY 09/17/2016 BERNY ALCARAZ MD Ot I25.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[place] CORONARY 10/09/2016 BERNY ALCARAZ MD Ot I25.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[place] CORONARY 10/09/2016 Ot 250.00 DIAB NALLELY WO COMPL, TYPE II OR UNSPEC TY 10/09/2016 CHICHI RIVAS [employer] Ot 574.20 CHOLELITHIASIS NOS 10/09/2016 CHICHI RIVAS [employer] Ot 789.1 HEPATOMEGALY 10/09/2016 LINDA GONZALESC, ALI [...] 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 W DIABETIC BULB FILLER 10/09/2016 SHIREEN AGARWAL N Ot I12.9 HYPERTENSIVE CHRONIC KIDNEY DISEASE W ST 10/09/2016 SHIREEN AGARWAL N Ot I25.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[place] CORONARY 10/09/2016 SHIREEN AGARWAL N Ot I48.91 UNSPECIFIED ATRIAL FIBRILLATION 10/09/2016 SHIREEN AGARWAL N Ot N18.3 CHRONIC KIDNEY DISEASE, STAGE 3 (MODERAT 10/09/2016 SHIREEN AGARWAL N Ot Z79.899 OTHER GROUP HOME (CURRENT) DRUG THERAPY 10/09/2016 SHIREEN AGARWAL N Ot D50.9 IRON DEFICIENCY ANEMIA, UNSPECIFIED 10/09/2016 SHIREEN AGARWAL N Ot E03.9 HYPOTHYROIDISM, UNSPECIFIED 10/09/2016 SHIREEN AGARWAL N Ot 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 W DIABETIC BULB FILLER 10/09/2016 SHIREEN AGARWAL N Ot I12.9 HYPERTENSIVE CHRONIC KIDNEY DISEASE W ST 10/09/2016 ANY, BOBAN N Ot I25.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[place] CORONARY 10/09/2016 ANY, BOBAN N Ot I48.91 UNSPECIFIED ATRIAL FIBRILLATION 10/09/2016 ANY, BOBAN N Ot N18.3 CHRONIC KIDNEY DISEASE, STAGE 3 (MODERAT 10/09/2016 ANY, BOBAN N Ot Z79.899 OTHER [employer] [place] (CURRENT) DRUG THERAPY 10/09/2016 KIERAN KHOURY, BERNY R Ot I25.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[place] CORONARY 10/09/2016 KIERAN KHOURY, Wei BRANDON Ot I47.1 SUPRAVENTRICULAR TACHYCARDIA 10/09/2016 KIERAN KHOURY, Wei BRANDON Ot I48.91 UNSPECIFIED ATRIAL FIBRILLATION 10/30/2016 KIERAN KHOURY, BERNY R Ot I25.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[place] CORONARY 11/03/2016 ANY BOBAN N Ot D50.9 IRON DEFICIENCY ANEMIA, UNSPECIFIED 11/03/2016 ANY, BOBAN N Ot E03.9 HYPOTHYROIDISM, UNSPECIFIED 11/03/2016 ANY, BOBAN N Ot 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 W DIABETIC BULB FILLER 11/03/2016 ANY, BOBAN N Ot I12.9 HYPERTENSIVE CHRONIC KIDNEY DISEASE W ST 11/03/2016 ANY, BOBAN N Ot I25.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[place] CORONARY 11/03/2016 ANY BOBAN N Ot I48.91 UNSPECIFIED ATRIAL FIBRILLATION 11/03/2016 ANY BOBAN N Ot N18.3 CHRONIC KIDNEY DISEASE, STAGE 3 (MODERAT 11/03/2016 ANY BOBAN N Ot Z79.899 OTHER [employer] (CURRENT) DRUG THERAPY 11/04/2016 ANY, BOBAN N Ot D50.9 IRON DEFICIENCY ANEMIA, UNSPECIFIED 11/04/2016 ANY, BOBAN N Ot E03.9 HYPOTHYROIDISM, UNSPECIFIED 11/04/2016 ANY, BOBAN N Ot 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 W DIABETIC BULB FILLER 11/04/2016 ANY, BOBAN N Ot I12.9 HYPERTENSIVE CHRONIC KIDNEY DISEASE W ST 11/04/2016 ANY, BOBAN N Ot I25.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[place] CORONARY 11/04/2016 ANY, BOBAN N Ot I48.91 UNSPECIFIED ATRIAL FIBRILLATION 11/04/2016 ANY, BOBAN N Ot N18.3 CHRONIC KIDNEY DISEASE, STAGE 3 (MODERAT 11/04/2016 ANY, BOBAN N Ot Z79.899 OTHER [place] (CURRENT) DRUG THERAPY 11/17/2016 KIERAN KHOURY, BERNY Champion Ot I25.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[place] CORONARY 11/18/2016 ANY, BOBAN N Ot D50.9 IRON DEFICIENCY ANEMIA, UNSPECIFIED 11/18/2016 ANY, BOBAN N Ot E03.9 HYPOTHYROIDISM, UNSPECIFIED 11/18/2016 ANY, BOBAN N Ot 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 W DIABETIC BULB FILLER 11/18/2016 ANY, BOBAN N Ot I12.9 HYPERTENSIVE CHRONIC KIDNEY DISEASE W ST 11/18/2016 ANY, BOBAN N Ot I25.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[place] CORONARY 11/18/2016 ANY, BOBAN N Ot I48.91 UNSPECIFIED ATRIAL FIBRILLATION 11/18/2016 ANY, BOBAN N Ot N18.3 CHRONIC KIDNEY DISEASE, STAGE 3 (MODERAT 11/18/2016 ANY, BOBAN N Ot Z79.899 OTHER GROUP HOME (CURRENT) DRUG THERAPY 12/10/2016 ANY, BOBAN N Ot D50.9 IRON DEFICIENCY ANEMIA, UNSPECIFIED 12/10/2016 ANY, BOBAN N Ot E03.9 HYPOTHYROIDISM, UNSPECIFIED 12/10/2016 ANY, BOBAN N Ot 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 W DIABETIC BULB FILLER 12/10/2016 ANY, BOBAN N Ot I12.9 HYPERTENSIVE CHRONIC KIDNEY DISEASE W ST 12/10/2016 NAY, BOBAN N Ot I25.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[place] CORONARY 12/10/2016 ANY, BOBAN N Ot I48.91 UNSPECIFIED ATRIAL FIBRILLATION 12/10/2016 ANY, BOBAN N Ot N18.3 CHRONIC KIDNEY DISEASE, STAGE 3 (MODERAT 12/10/2016 ANY, BOBAN N Ot Z79.899 OTHER GROUP HOME (CURRENT) DRUG THERAPY 12/12/2016 ANY, BOBAN N Ot D50.9 IRON DEFICIENCY ANEMIA, UNSPECIFIED 12/12/2016 ANY, BOBAN N Ot E03.9 HYPOTHYROIDISM, UNSPECIFIED 12/12/2016 ANY, BOBAN N Ot 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 W DIABETIC BULB FILLER 12/12/2016 SHIREEN AGARWAL Ot I12.9 HYPERTENSIVE CHRONIC KIDNEY DISEASE W ST 12/12/2016 SHIREEN AGARWAL Ot I25.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[place] CORONARY 12/12/2016 SHIREEN AGARWAL Ot I48.91 UNSPECIFIED ATRIAL FIBRILLATION 12/12/2016 SHIREEN AGARWAL Ot N18.3 CHRONIC KIDNEY DISEASE, STAGE 3 (MODERAT 12/12/2016 SHIREEN AGARWAL Ot Z79.899 OTHER [place] (CURRENT) DRUG THERAPY 12/16/2016 KIERAN KHOURY, Wei BRANDON Ot I47.1 SUPRAVENTRICULAR TACHYCARDIA 12/16/2016 KIERAN KHOURY, Wei BRANDON Ot I48.91 UNSPECIFIED ATRIAL FIBRILLATION 12/20/2016 KIERAN KHOURY, Wei BRANDON Ot I47.1 SUPRAVENTRICULAR TACHYCARDIA 12/20/2016 KIERAN KHOURY, Wei BRANDON Ot I48.91 UNSPECIFIED ATRIAL FIBRILLATION 12/31/2016 Ot 250.00 DIAB NALLELY WO COMPL, TYPE II OR UNSPEC TY 12/31/2016 CHICHI RIVAS [employer] Ot 574.20 CHOLELITHIASIS NOS 12/31/2016 CHICHI RIVAS [place] [employer] Ot 789.1 HEPATOMEGALY 12/31/2016 LINDA KHOURY FACC, [...] 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 W DIABETIC BULB FILLER 12/31/2016 SHIREEN AGARWAL Ot I12.9 HYPERTENSIVE CHRONIC KIDNEY DISEASE W ST 12/31/2016 SHIREEN AGARWAL Ot I25.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[place] CORONARY 12/31/2016 SHIREEN AGARWAL Ot I48.91 UNSPECIFIED ATRIAL FIBRILLATION 12/31/2016 SHIREEN AGARWAL Ot N18.3 CHRONIC KIDNEY DISEASE, STAGE 3 (MODERAT 12/31/2016 SHIREEN AGARWAL Ot Z79.899 OTHER [place] (CURRENT) DRUG THERAPY 12/31/2016 KIERAN KHOURY, BERNY Champion Ot I25.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[place] CORONARY 12/31/2016 BERNY ALCARAZ MD Ot I25.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[place] CORONARY 12/31/2016 ANY SHIREEN Narvaez Ot D50.9 IRON DEFICIENCY ANEMIA, UNSPECIFIED 12/31/2016 ANY SHIREEN Narvaez Ot E03.9 HYPOTHYROIDISM, UNSPECIFIED 12/31/2016 ANY SHIREEN N Ot 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 W DIABETIC BULB FILLER 12/31/2016 ANY SHIREEN Narvaez Ot I12.9 HYPERTENSIVE CHRONIC KIDNEY DISEASE W ST 12/31/2016 ANY SHIREEN Narvaez Ot I25.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[place] CORONARY 12/31/2016 ANY SHIREEN N Ot I48.91 UNSPECIFIED ATRIAL FIBRILLATION 12/31/2016 ANY SHIREEN Narvaez Ot N18.3 CHRONIC KIDNEY DISEASE, STAGE 3 (MODERAT 12/31/2016 ANY SHIREEN Narvaez Ot Z79.899 OTHER GROUP HOME (CURRENT) DRUG THERAPY 12/31/2016 KIERAN KHOURY, Wei BRANDON Ot I47.1 SUPRAVENTRICULAR TACHYCARDIA 12/31/2016 KIERAN KHOURY, Wei BRANDON Ot I48.91 UNSPECIFIED ATRIAL FIBRILLATION 01/01/2017 KIERAN KHOURY, Wei BRANDON Ot I47.1 SUPRAVENTRICULAR TACHYCARDIA 01/01/2017 KIERAN KHOURY, Wei BRANDON Ot I48.91 UNSPECIFIED ATRIAL FIBRILLATION 01/01/2017 NWAGWU, MICHAELRE Jasmina NURSE PRACTITIONER PHYSICIAN ASSISTANT Ot D64.9 ANEMIA, UNSPECIFIED 01/01/2017 NWAGWU, ISIDORE O NURSE PRACTITIONER PHYSICIAN ASSISTANT Ot D64.9 ANEMIA, UNSPECIFIED 01/02/2017 SABRINA ROSSI DO Ot D50.9 IRON DEFICIENCY ANEMIA, UNSPECIFIED 01/02/2017 SABRINA ROSSI DO Ot E03.9 HYPOTHYROIDISM, UNSPECIFIED 01/02/2017 SABRINA ROSSI DO Ot 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 W DIABETIC BULB FILLER 01/02/2017 SABRINA ROSSI DO Ot E78.5 HYPERLIPIDEMIA, UNSPECIFIED 01/02/2017 SABRINA ROSSI DO Ot I12.9 HYPERTENSIVE CHRONIC KIDNEY DISEASE W ST 01/02/2017 SABRINA ROSSI DO Ot I25.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[place] CORONARY 01/02/2017 SABRINA ROSSI DO Ot I47.1 [...] ABNORMALITIES 01/02/2017 SABRINA ROSSI DO Ot Z79.01 [place] (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 OF ANTICOAGULANT 01/02/2017 SABRINA RSOSI DO Ot Z79.84 [place] (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 OF ORAL HYPOGLYC 01/02/2017 SABRINA ROSSI DO Ot Z79.899 OTHER [place] (CURRENT) DRUG THERAPY 01/02/2017 SABRINA ROSSI DO Ot Z80.0 FAMILY HISTORY OF MALIGNANT NEOPLASM OF 01/02/2017 SABRINA ROSSI DO Ot Z95.5 PRESENCE OF CORONARY ANGIOPLASTY IMPLANT 01/06/2017 SABRINA ROSSI DO Ot D50.9 IRON DEFICIENCY ANEMIA, UNSPECIFIED 01/06/2017 SABRINA ROSSI DO Ot E03.9 HYPOTHYROIDISM, UNSPECIFIED 01/06/2017 SABRINA ROSSI DO Ot 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 W DIABETIC BULB FILLER 01/06/2017 SABRINA ROSSI DO Ot E78.5 HYPERLIPIDEMIA, UNSPECIFIED 01/06/2017 SABRINA ROSSI DO Ot I12.9 HYPERTENSIVE CHRONIC KIDNEY DISEASE W ST 01/06/2017 SABRINA ROSSI DO Ot I25.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[place] CORONARY 01/06/2017 SABRINA ROSSI DO Ot I47.1 SUPRAVENTRICULAR TACHYCARDIA 01/06/2017 SABRINA ROSSI DO Ot I48.91 UNSPECIFIED ATRIAL FIBRILLATION 01/06/2017 SABRINA ROSSI DO Ot K29.70 GASTRITIS, UNSPECIFIED, WITHOUT BLEEDING 01/06/2017 SABIRNA ROSSI DO Ot K44.9 DIAPHRAGMATIC HERNIA WITHOUT OBSTRUCTION 01/06/2017 SABRINA ROSSI DO Ot K64.9 UNSPECIFIED HEMORRHOIDS 01/06/2017 SABRINA ROSSI DO Ot N18.3 CHRONIC KIDNEY DISEASE, STAGE 3 (MODERAT 01/06/2017 SABRINA ROSSI DO Ot R19.5 OTHER FECAL ABNORMALITIES 01/06/2017 SABRINA ROSSI DO Ot Z79.01 GROUP HOME (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 OF ANTICOAGULANT 01/06/2017 SABRINA ROSSI DO Ot Z79.84 BASKET TURNER (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 OF ORAL HYPOGLYC 01/06/2017 SABRINA ROSSI DO Ot Z79.899 OTHER GROUP HOME (CURRENT) DRUG THERAPY 01/06/2017 SABRINA ROSSI DO Ot Z80.0 FAMILY HISTORY OF MALIGNANT NEOPLASM OF 01/06/2017 SABRINA ROSSI DO Ot Z95.5 PRESENCE OF CORONARY ANGIOPLASTY IMPLANT 01/29/2017 Ot 250.00 DIAB NALLELY WO COMPL, TYPE II OR UNSPEC TY 01/29/2017 CHICHI RIVAS [employer] Ot 574.20 CHOLELITHIASIS NOS 01/29/2017 CHICHI RIVAS [employer] Ot 789.1 HEPATOMEGALY 01/29/2017 LINDA KHOURY FACC, [...] KIDNEY DISEASE, STAGE II (MILD) 01/29/2017 OVI KHOUYR, WU Ot E03.9 HYPOTHYROIDISM, UNSPECIFIED 01/29/2017 OVI [...] 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 W DIABETIC BULB FILLER 01/29/2017 SHIREEN AGARWAL Ot I12.9 HYPERTENSIVE CHRONIC KIDNEY DISEASE W ST 01/29/2017 SHIREEN AGARWAL N Ot I25.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[place] CORONARY 01/29/2017 SHIREEN AGARWAL Ot I48.91 UNSPECIFIED ATRIAL FIBRILLATION 01/29/2017 SHIREEN AGARWAL Ot N18.3 CHRONIC KIDNEY DISEASE, STAGE 3 (MODERAT 01/29/2017 SHIREEN AGARWAL N Ot Z79.899 OTHER [place] (CURRENT) DRUG THERAPY 01/29/2017 KIERAN KHOURY, BERNY R Ot I25.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[place] CORONARY 01/29/2017 KIERAN KHOURY, BERNY R Ot I25.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[place] CORONARY 01/29/2017 SHIREEN AGARWAL Ot D50.9 IRON DEFICIENCY ANEMIA, UNSPECIFIED 01/29/2017 SHIREEN AGARWAL N Ot E03.9 HYPOTHYROIDISM, UNSPECIFIED 01/29/2017 SHIREEN AGARWAL Ot 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 W DIABETIC BULB FILLER 01/29/2017 SHIREEN AGARWAL Ot I12.9 HYPERTENSIVE CHRONIC KIDNEY DISEASE W ST 01/29/2017 SHIREEN AGARWAL Ot I25.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[place] CORONARY 01/29/2017 SHIREEN AGARWAL Ot I48.91 UNSPECIFIED ATRIAL FIBRILLATION 01/29/2017 SHIREEN AGARWAL Solange Ot N18.3 CHRONIC KIDNEY DISEASE, STAGE 3 (MODERAT 01/29/2017 SHIREEN AGARWAL Solange Ot Z79.899 OTHER [place] (CURRENT) DRUG THERAPY 01/29/2017 KIERAN KHOURY, Wei [...] II OR UNSPEC TY 01/29/2017 CHICHI RIVAS [employer] Ot 574.20 CHOLELITHIASIS NOS 01/29/2017 CHICHI RIVAS [employer] Ot 789.1 HEPATOMEGALY 01/29/2017 LINDA GONZALESC, ALI [...] 574.20 CHOLELITHIASIS NOS 01/29/2017 HARVEY KHOURY, CLAUDE S Ot 585.2 CHRONIC [...] 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 W DIABETIC BULB FILLER 01/29/2017 SHIREEN AGARWAL Ot I12.9 HYPERTENSIVE CHRONIC KIDNEY DISEASE W ST 01/29/2017 SHIREEN AGARWAL Ot I25.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[place] CORONARY 01/29/2017 SHIREEN AGARWAL Ot I48.91 UNSPECIFIED ATRIAL FIBRILLATION 01/29/2017 SHIREEN AGARWAL Ot N18.3 CHRONIC KIDNEY DISEASE, STAGE 3 (MODERAT 01/29/2017 SHIREEN AGARWAL N Ot Z79.899 OTHER [place] (CURRENT) DRUG THERAPY 01/29/2017 KIERAN KHOURY, BERNY R Ot I25.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[place] CORONARY 01/29/2017 KIERAN KHOURY, BERNY R Ot I25.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[place] CORONARY 01/29/2017 ANYSHIREEN N Ot D50.9 IRON DEFICIENCY ANEMIA, UNSPECIFIED 01/29/2017 ANY BOBAN N Ot E03.9 HYPOTHYROIDISM, UNSPECIFIED 01/29/2017 ANY, BOBAN N Ot 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 W DIABETIC BULB FILLER 01/29/2017 ANYJJAN N Ot I12.9 HYPERTENSIVE CHRONIC KIDNEY DISEASE W ST 01/29/2017 ANYSHIREEN N Ot I25.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[place] CORONARY 01/29/2017 ANY JJONDINA N Ot I48.91 UNSPECIFIED ATRIAL FIBRILLATION 01/29/2017 ANYSHIREEN N Ot N18.3 CHRONIC KIDNEY DISEASE, STAGE 3 (MODERAT 01/29/2017 ANY BOBAN N Ot Z79.899 OTHER [place] (CURRENT) DRUG THERAPY 01/29/2017 KIERAN KHOURY, Wei [...] MD Ot I25.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[place] CORONARY 01/31/2017 JAMES TORRES MD Ot I48.0 [...] ADULT 01/31/2017 JAMES TORRES MD Ot Z79.01 B[place] (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 OF ANTICOAGULANT 01/31/2017 JAMES TORRES MD Ot Z95.5 PRESENCE OF CORONARY ANGIOPLASTY IMPLANT 02/11/2017 SHIREEN AGARWAL Ot D50.9 IRON DEFICIENCY ANEMIA, UNSPECIFIED 02/11/2017 SHIREEN AGARWAL Ot E03.9 HYPOTHYROIDISM, UNSPECIFIED 02/11/2017 SHIREEN AGARWAL Ot 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 W DIABETIC BULB FILLER 02/11/2017 SHIREEN AGARWAL Ot I12.9 HYPERTENSIVE CHRONIC KIDNEY DISEASE W ST 02/11/2017 SHIREEN AGARWAL Ot I25.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[place] CORONARY 02/11/2017 SHIREEN AGARWAL Ot I48.91 UNSPECIFIED ATRIAL FIBRILLATION 02/11/2017 SHIREEN AGARWAL Ot N18.3 CHRONIC KIDNEY DISEASE, STAGE 3 (MODERAT 02/11/2017 SHIREEN AGARWAL Ot Z79.899 OTHER [place] (CURRENT) DRUG THERAPY 02/23/2017 KIERAN KHOURY, Wei [...] 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 W DIABETIC BULB FILLER 03/09/2017 ANY BOBAN N Ot I12.9 HYPERTENSIVE CHRONIC KIDNEY DISEASE W ST 03/09/2017 ANY BOBAN N Ot I25.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[place] CORONARY 03/09/2017 ANYSHIREEN N Ot I48.91 UNSPECIFIED ATRIAL FIBRILLATION 03/09/2017 ANY BOBAN N Ot N18.3 CHRONIC KIDNEY DISEASE, STAGE 3 (MODERAT 03/09/2017 ANY BOBAN N Ot Z79.899 OTHER [place] (CURRENT) DRUG THERAPY 03/10/2017 ANYSHIREEN BALDWIN N Ot D50.9 IRON DEFICIENCY ANEMIA, UNSPECIFIED 03/10/2017 ANY BOBAN N Ot E03.9 HYPOTHYROIDISM, UNSPECIFIED 03/10/2017 ANY, BOBAN N Ot 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 W DIABETIC BULB FILLER 03/10/2017 ANY BOBAN N Ot I12.9 HYPERTENSIVE CHRONIC KIDNEY DISEASE W ST 03/10/2017 ANY, BOBAN N Ot I25.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[place] CORONARY 03/10/2017 ANY BOBAN N Ot I48.91 UNSPECIFIED ATRIAL FIBRILLATION 03/10/2017 ANY BOBAN N Ot N18.3 CHRONIC KIDNEY DISEASE, STAGE 3 (MODERAT 03/10/2017 ANY, BOBAN N Ot Z79.899 OTHER GROUP HOME (CURRENT) DRUG THERAPY 03/13/2017 SABRINA ROSSI DO [...] 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 W DIABETIC BULB FILLER 03/20/2017 ANYSHIREEN N Ot I12.9 HYPERTENSIVE CHRONIC KIDNEY DISEASE W ST 03/20/2017 SHIREEN AGARWAL Ot I25.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[place] CORONARY 03/20/2017 ANYSHIREEN N Ot I48.91 UNSPECIFIED ATRIAL FIBRILLATION 03/20/2017 ANYSHIREEN N Ot N18.3 CHRONIC KIDNEY DISEASE, STAGE 3 (MODERAT 03/20/2017 ANYSHIREEN N Ot Z79.899 OTHER [place] (CURRENT) DRUG THERAPY 04/01/2017 ANY SHIREEN N [...] MD Ot I10 ESSENTIAL (PRIMARY) HYPERTENSION 06/10/2017 [place] SABRINA WOOD Ot D64.9 ANEMIA, UNSPECIFIED 06/10/2017 ROSSI SABRINA WOOD Ot K76.89 OTHER SPECIFIED DISEASES OF LIVER 06/10/2017 [place] SABRINA WOOD Ot K82.1 HYDROPS OF GALLBLADDER 06/16/2017 ANY SHIREEN Solange Ot D64.9 ANEMIA, UNSPECIFIED 06/16/2017 Ot 250.00 DIAB NALLELY WO COMPL, TYPE II OR UNSPEC TY 06/16/2017 CHICHI RIVAS [employer] Ot 574.20 CHOLELITHIASIS NOS 06/16/2017 CHICHI RIVAS [employer] Ot 789.1 HEPATOMEGALY 06/16/2017 LINDA KHOURY FACC, [...] Ot 574.20 CHOLELITHIASIS NOS 06/16/2017 HARVEY KHOURY, CLAUDE Clement Ot 585.2 CHRONIC [...] 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 W DIABETIC BULB FILLER 06/16/2017 SHIREEN AGARWAL Ot I12.9 HYPERTENSIVE CHRONIC KIDNEY DISEASE W ST 06/16/2017 SHIREEN AGARWAL Ot I25.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[place] CORONARY 06/16/2017 SHIREEN AGARWAL Ot I48.91 UNSPECIFIED ATRIAL FIBRILLATION 06/16/2017 SHIREEN AGARWAL Ot N18.3 CHRONIC KIDNEY DISEASE, STAGE 3 (MODERAT 06/16/2017 SHIREEN AGARWAL Ot Z79.899 OTHER [place] (CURRENT) DRUG THERAPY 06/16/2017 KIERAN KHOURY, BERNY Champion Ot I25.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[place] CORONARY 06/16/2017 KIERAN KHOURY, BERNY Champion Ot I25.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[place] CORONARY 06/16/2017 KIERAN KHOURY, M ROMA Ot [...] 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 W DIABETIC BULB FILLER 06/22/2017 SHIREEN AGARWAL Ot I12.9 HYPERTENSIVE CHRONIC KIDNEY DISEASE W ST 06/22/2017 SHIREEN AGARWAL Ot I25.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[place] CORONARY 06/22/2017 ANYJJ BALDWINAN N Ot I48.91 UNSPECIFIED ATRIAL FIBRILLATION 06/22/2017 SHIREEN AGARWAL N Ot N18.3 CHRONIC KIDNEY DISEASE, STAGE 3 (MODERAT 06/22/2017 ANY, BOBAN N Ot Z79.899 OTHER GROUP HOME (CURRENT) DRUG THERAPY 07/07/2017 JJ AGARWALAN N Ot D50.9 IRON DEFICIENCY ANEMIA, UNSPECIFIED 07/07/2017 ANY, BOBAN N Ot E03.9 HYPOTHYROIDISM, UNSPECIFIED 07/07/2017 ANY, BOBAN N Ot 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 W DIABETIC BULB FILLER 07/07/2017 ANY, BOBAN N Ot I12.9 HYPERTENSIVE CHRONIC KIDNEY DISEASE W ST 07/07/2017 ANY, BOBAN N Ot I25.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[place] CORONARY 07/07/2017 ANY BOBAN N Ot I48.91 UNSPECIFIED ATRIAL FIBRILLATION 07/07/2017 ANY BOBAN N Ot N18.3 CHRONIC KIDNEY DISEASE, STAGE 3 (MODERAT 07/07/2017 ANY, BOBAN N Ot Z79.899 OTHER [place] (CURRENT) DRUG THERAPY 07/07/2017 MELIZA KHOURY, BRANDEN Ot D50.9 IRON DEFICIENCY ANEMIA, UNSPECIFIED 07/07/2017 BRANDEN HAIDER MD Ot E03.9 HYPOTHYROIDISM, UNSPECIFIED 07/07/2017 MELIZA KHOURY, BRANDEN Ot 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 W DIABETIC BULB FILLER 07/07/2017 MELIZA KHOURY, BRANDEN Ot I12.9 HYPERTENSIVE CHRONIC KIDNEY DISEASE W ST 07/07/2017 MELIZA KHOURY, BRANDEN Ot I25.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[place] CORONARY 07/07/2017 MELIZA KHOURY, BRANDEN Ot I48.91 UNSPECIFIED ATRIAL FIBRILLATION 07/07/2017 MELIZA KHOURY, BRANDEN Ot N18.3 CHRONIC KIDNEY DISEASE, STAGE 3 (MODERAT 07/07/2017 MELIZA KHOURY, BRANDEN Ot Z79.899 OTHER [place] (CURRENT) DRUG THERAPY 07/10/2017 RACHELE JEFFERSON [employer] Ot D64.89 OTHER SPECIFIED ANEMIAS 07/10/2017 RACHELE JEFFERSON [employer] Ot R06.02 SHORTNESS OF BREATH 07/17/2017 CARMINE [...] DIVYA BORRERO DOIC B Ot Z79.899 OTHER [place] (CURRENT) DRUG THERAPY 07/24/2017 DIVYA BORRERO DOIC [...] DIVYA BORRERO DOIC B Ot Z79.899 OTHER [place] (CURRENT) DRUG THERAPY 07/24/2017 DIVYA BORRERO DOIC [...] DELMAN DO, CARMINE B Ot Z79.899 OTHER [place] (CURRENT) DRUG THERAPY 07/28/2017 BRANDEN HAIDER MD Ot D50.9 IRON DEFICIENCY ANEMIA, UNSPECIFIED 07/28/2017 BRANDEN HAIDER MD Ot E03.9 HYPOTHYROIDISM, UNSPECIFIED 07/28/2017 MELIZA KHOURY, BRANDEN Ot 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 W DIABETIC BULB FILLER 07/28/2017 BRANDEN HAIDER MD Ot I12.9 HYPERTENSIVE CHRONIC KIDNEY DISEASE W ST 07/28/2017 BRANDEN HAIDER MD Ot I25.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[place] CORONARY 07/28/2017 BRANDEN HAIDER MD Ot I48.91 UNSPECIFIED ATRIAL FIBRILLATION 07/28/2017 BRANDEN HAIDER MD Ot N18.3 CHRONIC KIDNEY DISEASE, STAGE 3 (MODERAT 07/28/2017 MELIZA KHOURY, BRANDEN Ot Z79.899 OTHER [place] (CURRENT) DRUG THERAPY 07/29/2017 ANY, BOBAN N Ot D50.9 IRON DEFICIENCY ANEMIA, UNSPECIFIED 07/29/2017 ANY, BOBAN N Ot E03.9 HYPOTHYROIDISM, UNSPECIFIED 07/29/2017 ANY, BOBAN N Ot 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 W DIABETIC BULB FILLER 07/29/2017 ANY, BOBAN N Ot I12.9 HYPERTENSIVE CHRONIC KIDNEY DISEASE W ST 07/29/2017 ANY, BOBAN N Ot I25.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[place] CORONARY 07/29/2017 ANY, BOBAN N Ot I48.91 UNSPECIFIED ATRIAL FIBRILLATION 07/29/2017 ANY, BOBAN N Ot N18.3 CHRONIC KIDNEY DISEASE, STAGE 3 (MODERAT 07/29/2017 ANY, BOBAN N Ot Z79.899 OTHER GROUP HOME (CURRENT) DRUG THERAPY 08/11/2017 DELARIANA DO, CARMINE [...] GISSELL WOOD CARMINE B Ot Z79.899 OTHER [place] (CURRENT) DRUG THERAPY 09/02/2017 SHIREEN AGARWAL Ot D50.9 IRON DEFICIENCY ANEMIA, UNSPECIFIED 09/02/2017 SHIREEN AGARWAL Ot E03.9 HYPOTHYROIDISM, UNSPECIFIED 09/02/2017 SHIREEN AGARWAL N Ot 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 W DIABETIC BULB FILLER 09/02/2017 SHIREEN AGARWAL Ot I12.9 HYPERTENSIVE CHRONIC KIDNEY DISEASE W ST 09/02/2017 SHIREEN AGARWAL Ot I25.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[place] CORONARY 09/02/2017 SHIREEN AGARWAL Ot I48.91 UNSPECIFIED ATRIAL FIBRILLATION 09/02/2017 SHIREEN AGARWAL Ot N18.3 CHRONIC KIDNEY DISEASE, STAGE 3 (MODERAT 09/02/2017 SHIREEN AGARWAL N Ot Z79.899 OTHER [place] (CURRENT) DRUG THERAPY 09/02/2017 Ot 250.00 DIAB NALLELY WO COMPL, TYPE II OR UNSPEC TY 09/02/2017 CHICHI RIVAS [employer] Ot 574.20 CHOLELITHIASIS NOS 09/02/2017 CHICHI RIVAS [employer] Ot 789.1 HEPATOMEGALY 09/02/2017 LINDA KHOURY FACC, [...] 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 W DIABETIC BULB FILLER 09/02/2017 SHIREEN AGARWAL Solange Ot I12.9 HYPERTENSIVE CHRONIC KIDNEY DISEASE W ST 09/02/2017 ANYSHIREEN BALDWIN Solange Ot I25.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[place] CORONARY 09/02/2017 SHIREEN AGARWAL Solange Ot I48.91 UNSPECIFIED ATRIAL FIBRILLATION 09/02/2017 SHIREEN AGARWAL Solange Ot N18.3 CHRONIC KIDNEY DISEASE, STAGE 3 (MODERAT 09/02/2017 SHIREEN AGARWAL Solange Ot Z79.899 OTHER GROUP HOME (CURRENT) DRUG THERAPY 09/02/2017 KIERAN KHOURY, BERNY Champion Ot I25.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[place] CORONARY 09/02/2017 KIERAN KHOURY, BERNY Champion Ot I25.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[place] CORONARY 09/02/2017 KIERAN KHOURY, Wei BRANDON Ot I47.1 SUPRAVENTRICULAR TACHYCARDIA 09/02/2017 KIERAN KHOURY, Wei BRANDON Ot I48.91 UNSPECIFIED ATRIAL FIBRILLATION 09/02/2017 SABRINA ROSSI DO Ot D50.9 IRON DEFICIENCY ANEMIA, UNSPECIFIED 09/02/2017 SABRINA ROSSI DO Ot R19.5 OTHER FECAL ABNORMALITIES 09/02/2017 SABRINA ORSSI DO Ot Z01.818 ENCOUNTER FOR OTHER PREPROCEDURAL [...] K82.1 HYDROPS OF GALLBLADDER 09/02/2017 RACHELE JEFFERSON [employer] Ot D64.89 OTHER SPECIFIED ANEMIAS 09/02/2017 RACHELE JEFFERSON [employer] Ot R06.02 SHORTNESS OF BREATH 09/02/2017 ANY JJONDINA Narvaez Ot D50.9 IRON DEFICIENCY ANEMIA, UNSPECIFIED 09/02/2017 ANYSHIREEN Ot E03.9 HYPOTHYROIDISM, UNSPECIFIED 09/02/2017 ANYSHIREEN Ot 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 W DIABETIC BULB FILLER 09/02/2017 ANYSHIREEN Ot I12.9 HYPERTENSIVE CHRONIC KIDNEY DISEASE W ST 09/02/2017 SHIREEN AGARWAL Ot I25.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[place] CORONARY 09/02/2017 SHIREEN AGARWAL Ot I48.91 UNSPECIFIED ATRIAL FIBRILLATION 09/02/2017 SHIREEN AGARWAL Ot N18.3 CHRONIC KIDNEY DISEASE, STAGE 3 (MODERAT 09/02/2017 ANY SHIREEN Solange Ot Z79.899 OTHER B[place]ET [place] (CURRENT) DRUG THERAPY Procedures Code Description Performed By Performed On [id number] MEASURE OF CARDIAC SAMPL PRESSURE, L H 01/30/2017 [id number] FLUOROSCOPY OF MULT COR ART USING L OSM 01/30/2017 [id number] FLUOROSCOPY OF LEFT HEART USING LOW OSMO [...] ABO+Rh group AP NRG Transfusion band number [id number] NR Blood group antibody screen POSITIVE NRG Blood group antibodies identified - 01/29/17 13:20 Blood group antibodies identified [facility] Capillary blood glucose measurement by glucometer (mass/volume) [...] LEUKO REDUCED AS1 PRSMD TRFSD 06/12/[address] [facility] [id number] - 06/10/17 11:45 [id number] SPECIMEN [address] [facility] Blood type T Indirect antibody screen panel - 06/10/17 11:45 ABO+Rh group AP [facility] Transfusion band number [id number] [facility] Blood group antibody screen POSITIVE NR Blood group antibodies identified - 06/10/17 11:45 Blood group antibodies identified JKA [facility] Comprehensive metabolic panel - 06/10/17 11:45 [...] plasma ferritin measurement (mass/volume) 45.0 % 15.0-150.0 [id number] - 07/01/17 12:54 [id number] SPECIMEN AVAILABLE NRG Encounters ACCT No. Visit Date/Time Discharge Status Pt. Type Provider Facility Loc./Unit Complaint [id number] 09/03/2017 12:46:00 09/03/2017 23:59:59 CLS Outpatient SHIREEN AGARWAL [facility] ONC [id number] 07/17/2017 14:09:00 07/28/2017 10:19:00 DIS Outpatient BRANDEN HAIDER MD [facility] ONC [id number] 07/17/2017 09:59:00 07/17/2017 13:30:00 DIS Outpatient CARMINE BORRERO DO [facility] ENDO GI BLEED [id number] 07/16/2017 15:00:00 07/16/2017 15:00:00 CAN Preadmit CARMINE BORRERO DO [facility] PREOP GI BLEED [id number] 07/01/2017 12:12:00 07/07/2017 09:04:00 DIS Outpatient SHIREEN AGARWAL [facility] ONC [id number] 06/16/2017 10:05:00 06/16/2017 00:01:00 DIS Outpatient SHIREEN AGARWAL [facility] ONC [id number] 06/14/2017 14:39:00 06/14/2017 23:59:59 CLS Outpatient RACHELE JEFFERSON [facility] LAB ANEMIA,SHORTNESS OF BREATH [id number] 05/21/2017 12:23:00 05/21/2017 23:59:59 CLS Outpatient SABRINA ROSSI DO [facility] RAD ABD PAIN, ANEMIA [id number] 05/12/2017 09:09:00 05/12/2017 23:59:59 CLS Outpatient JAMES TORRES MD [facility] LAB [id number] 04/07/2017 06:54:00 04/07/2017 23:59:59 CLS Outpatient SABRINA ROSSI DO [facility] ENDO INFLAMMATION [id number] 04/06/2017 11:00:00 04/06/2017 11:22:00 DIS Outpatient SABRINA ROSSI DO [facility] PREOP CAPSULE ENDO [id number] 03/04/2017 10:21:00 03/09/2017 00:01:00 DIS Outpatient ANY SHIREEN N [facility] ONC [id number] 03/02/2017 07:20:00 03/02/2017 23:59:59 CLS Outpatient SABRINA ROSSI DO [facility] ENDO ANEMIA [id number] 02/23/2017 05:40:00 02/23/2017 11:52:00 DIS Outpatient SABRINA ROSSI DO [facility] PREOP ANEMIA [id number] 01/29/2017 09:44:00 01/31/2017 15:52:00 DIS Inpatient JAMES TORRES MD [facility] ICU A-FIB WITH RVR [id number] 01/02/2017 06:29:00 01/02/2017 08:45:00 DIS Outpatient SABRINA ROSSI DO [facility] ENDO ANEMIA; OCCULT POSITIVE STOOLS [id number] 12/31/2016 11:10:00 01/01/2017 10:01:00 DIS Outpatient MACIEL WELCH APRN [facility] LAB ANEMIA [id number] 12/31/2016 12:53:00 12/31/2016 23:59:59 CLS Outpatient FLO WOODSABRINA Joe [facility] PREOP ANEMIA, OCCULT POSITIVE STOOL [id number] 12/17/2016 09:30:00 12/17/2016 23:59:59 CLS Preadmit Wei ALCARAZ MD [facility] CARD AFIB,PSVT [id number] 10/10/2016 08:46:00 12/16/2016 00:01:00 DIS Outpatient Wei ALCARAZ MD [facility] CARD AFIB,PSVT [id number] 10/24/2016 08:37:00 11/03/2016 00:01:00 DIS Outpatient SHIREEN AGARWAL [facility] ONC [id number] 10/24/2016 08:41:00 10/24/2016 23:59:59 CLS Outpatient BERNY ALCARAZ MD [facility] LAB [id number] 09/15/2016 12:15:00 09/15/2016 23:59:59 CLS Outpatient BERNY ALCARAZ MD [facility] LAB [id number] 11/27/2015 15:28:00 01/07/2016 00:01:00 DIS Outpatient SHIREEN AGARWAL [facility] ONC [id number] 10/04/2015 13:17:00 10/04/2015 23:59:59 CLS Outpatient SHIREEN AGARWAL [facility] ONC [id number] 06/12/2015 11:11:00 06/13/2015 00:01:00 DIS Outpatient SHIREEN AGARWAL [facility] ONC [id number] 06/04/2015 15:34:00 06/04/2015 23:59:59 CLS Preadmit RACHELE JEFFERSON [facility] ONC [id number] 03/29/2015 11:35:00 03/29/2015 23:59:59 CLS Outpatient WU DIOR MD [facility] LAB [id number] 03/15/2015 14:54:00 03/15/2015 23:59:59 CLS Outpatient WU DIOR MD [facility] LAB [id number] 11/23/2014 13:42:00 12/27/2014 00:01:00 DIS Outpatient SHIREEN AGARWAL [facility] ONC [id number] 10/05/2014 13:42:00 10/05/2014 23:59:59 CLS Outpatient CLAUDE GABRIEL MD [facility] LAB [id number] 10/05/2014 12:00:00 10/05/2014 23:59:59 CLS Outpatient CLAUDE GABRIEL MD [facility] RAD POST SPOT URINE [id number] 07/17/2014 14:31:00 07/17/2014 23:59:59 CLS Outpatient SHIREEN AGARWAL [facility] ONC [id number] 05/24/2014 13:33:00 05/24/2014 23:59:59 CLS Outpatient ARNIE MCKEON MD, FACC, FACP CCDS [facility] LAB [id number] 04/03/2014 14:00:00 05/16/2014 00:01:00 DIS Outpatient SHIREEN AGARWAL [facility] ONC [id number] 03/24/2014 06:46:00 03/24/2014 09:55:00 DIS Outpatient TONIE CRAWFORD MD [facility] SDC SCREENING; ANEMIA [id number] 03/23/2014 07:22:00 03/23/2014 23:59:59 CLS Outpatient TONIE CRAWFORD MD [facility] PREOP SCREENING; ANEMIA [id number] 03/02/2014 09:01:00 03/02/2014 16:00:00 DIS Outpatient LINDA KHOURY FACC, ARNIE FACP CCDS [facility] CATH CP,CAD,HTN [id number] 02/07/2014 07:52:00 02/07/2014 23:59:59 CLS Outpatient LINDA KHOURY FACC, ARNIE FACP CCDS [facility] CARD AFIB [id number] 03/31/2013 08:55:00 03/31/2013 23:59:59 CLS Outpatient CHICHI RIVAS KYM [facility] RAD MID EPIGASTRIC PAIN [id number] 10/05/2014 11:59:00 Document Registration [id number] 10/05/2014 11:59:00 Document Registration [id number] 10/05/2014 11:59:00 Document Registration [id number] 08/24/2014 14:23:00 Document Registration [id number] 08/21/2014 07:51:00 Document Registration [id number] 04/03/2012 14:05:00 Document Registration [id number] 03/31/2016 15:06:00 03/31/2016 23:59:00 DIS Outpatient MALVIN DOMINGUEZ [facility] 03/15/2015 14:54:36 ACT Document Registration [id number] 09/01/2017 15:20:00 09/01/2017 23:59:59 CLS Outpatient JAMES TORRES [facility] [id number] 05/18/2017 16:00:00 Document Registration
[2017-09-13 08:00] VITALS: BP 148/57
--- NOTE | 2017-09-13 08:20 | Diagnostic Imaging Report ---
PROCEDURE: CT head without contrast. TECHNIQUE: Multiple contiguous axial images were obtained through the brain without the use of intravenous contrast. INDICATION: Headache. CT HEAD: Multiple contiguous axial CT images of the head were obtained. FINDINGS: Ventricles and sulci are within normal limits for size. There is no intracranial hemorrhage identified. There is no abnormal mass effect or shift of midline structures. IMPRESSION: Unremarkable CT of the head. Dictated by: Dictated on workstation # [id number]
--- NOTE | 2017-09-13 08:40 | History & Physicial (CHS) ---
HPI History of Present Illness: 62-year-old female presents to [facility] emergency department during the evening of September 12, 2017 with left sided neck, chest, and shoulder discomfort. Apparently she also complained of shortness of breath with what she describes as palpitations. She does have a history of atrial fibrillation and also a history of anemia. She does report the anemia is followed by Dr. Field in the oncology center. She does receive periodic blood transfusions if her hemoglobin gets in the 7 range. Source: patient Exam Limitations: clinical condition Date seen by provider: Sep 13, 2017 Time Seen by Provider: 07:00 Attending Physician Carla Wilson MD PCP Carla Wilson MD Consult Date of Admission Sep 12, 2017 at 22:15 Home Medications Home Medications Reviewed patient Home Medication Reconciliation performed by pharmacy medication reconciliations tool and die technician and/or nursing. Patients Allergies have been reviewed. Allergies Coded Allergies: Zukepqr-Erp-Xrc Reductase Inhibitor (Verified Allergy, Intermediate, GI UPSET, N/V, 01/01/17) cefadroxil (Unverified Allergy, Mild, 01/01/17) diltiazem (Verified Allergy, Unknown, mouth burning and swelling, 02/23/17) UIL-Zricxp-Zuqzdx Hx Patient Social History Alcohol Use: Denies Use Recreational Drug Use: No Smoking Status: Former Smoker Type Used: Cigarettes Recent Foreign Travel: No Contact w/other who traveled: No Recent Hopitalizations: No Recent Infectious Disease Expo: No Physical Abuse Screen: No Sexual Abuse: No Immunizations Up To Date Tetanus Booster (TDap): Unknown Date of Pneumonia Vaccine: Jun 23, 2016 Date of Influenza Vaccine: Mar 15, 2017 Past Medical History Paroxysmal Atrial fibrillation CAD NIDDM Chronic Microcytic anemia with normal EGD and Colonoscopy last month, transfusion dependent HTN Review of Systems (CHC) Constitutional: see HPI Reviewed Test Results Reviewed Test Results Lab Laboratory Tests Test 09/12/17 19:55 09/13/17 02:05 Range/Units White Blood Count 7.0 7.2 4.3-11.0 10^3/uL Red Blood Count 2.67 L 2.59 L 4.35-5.85 10^6/uL Hemoglobin 8.1 L 8.0 L 11.5-16.0 G/DL Hematocrit 26 L 25 L 35-52 % Mean Corpuscular Volume 97 98 80-99 FL Mean Corpuscular Hemoglobin 30 31 25-34 PG Mean Corpuscular Hemoglobin Concent 31 L 31 L 32-36 G/DL Red Cell Distribution Width 16.1 H 16.1 H 10.0-14.5 % Platelet Count 159 167 130-400 10^3/uL Mean Platelet Volume 10.0 9.6 7.4-10.4 FL Neutrophils (%) (Auto) 69 68 42-75 % Lymphocytes (%) (Auto) 18 20 12-44 % Monocytes (%) (Auto) 8 7 0-12 % Eosinophils (%) (Auto) 5 5 0-10 % Basophils (%) (Auto) 0 0 0-10 % Neutrophils # (Auto) 4.8 5.0 1.8-7.8 X 10^3 Lymphocytes # (Auto) 1.3 1.4 1.0-4.0 X 10^3 Monocytes # (Auto) 0.5 0.5 0.0-1.0 X 10^3 Eosinophils # (Auto) 0.4 H 0.3 0.0-0.3 10^3/uL Basophils # (Auto) 0.0 0.0 0.0-0.1 10^3/uL Prothrombin Time 14.0 12.2-14.7 SEC INR Comment 1.1 0.8-1.4 Activated Partial Thromboplast Time 29 24-35 SEC Sodium Level 140 141 135-145 MMOL/L Potassium Level 4.0 4.2 3.6-5.0 MMOL/L Chloride Level 103 103 98-107 MMOL/L Carbon Dioxide Level 23 25 21-32 MMOL/L Anion Gap 14 13 5-14 MMOL/L Blood Urea Nitrogen 19 H 19 H 7-18 MG/DL Creatinine 1.50 H 1.40 H 0.60-1.30 MG/DL Estimat Glomerular Filtration Rate 35 38 BUN/Creatinine Ratio 13 14 Glucose Level 176 H 174 H 70-105 MG/DL Calcium Level 9.6 9.3 8.5-10.1 MG/DL Magnesium Level 1.4 L 1.8-2.4 MG/DL Total Bilirubin 0.6 0.5 0.1-1.0 MG/DL Aspartate Amino Transf (AST/SGOT) 51 H 54 H 5-34 U/L Alanine Aminotransferase (ALT/SGPT) 24 24 0-55 U/L Alkaline Phosphatase 65 64 40-136 U/L Myoglobin 52.6 80.2 10.0-92.0 NG/ML Troponin I < 0.30 < 0.30 <0.30 NG/ML Total Protein 7.6 7.1 6.4-8.2 GM/DL Albumin 3.9 3.7 3.2-4.5 GM/DL Amylase Level 59 25-125 U/L Lipase 55 8-78 U/L Triglycerides Level 180 H <150 MG/DL Cholesterol Level 200 < 200 MG/DL LDL Cholesterol Direct 124 1-129 MG/DL VLDL Cholesterol 36 5-40 MG/DL HDL Cholesterol 41 40-60 MG/DL Radiology NAME: YOLETTE PISANO [facility] REC#: [id number] PT STATUS: ADM Phillip : 1955 PHYSICIAN: OBEY WHITE MD ADMIT DATE: 09/12/17/ICU Signed Date of Exam: 09/12/17 CHEST 1 VIEW, AP/PA ONLY EXAM: CHEST 1 VIEW, AP/PA ONLY INDICATION: Chest pain and weakness. COMPARISON: Chest radiograph 01/31/2017. FINDINGS: Heart size and central pulmonary vascularity at the upper limits of normal, similar to the prior exam. No new focal pulmonary opacity, pleural effusion or pneumothorax. No acute osseous findings. No significant change. IMPRESSION: No acute cardiopulmonary findings. Dictated by: Dictated on workstation # [id number] Dict: 09/12/172139 Trans: 09/12/172253 Interpreted by: SHARYN DUBOSE MD Electronically signed by: SHARYN DUBOSE MD 09/12/17 3584 Physical Exam-(CHC) Physical Exam Vital Signs VS - Last 72 Hours, by Label 09/12/17 09/12/17 09/12/17 09/12/17 20:48 20:48 23:03 23:20 Temp 97.5 99.8 Pulse 129 101 96 Resp 24 24 16 B/P (MAP) 151/76 (101) 136/51 175/67 (103) Pulse Ox 95 92 95 O2 Delivery Room Air Room Air Room Air Room Air 09/12/17 09/12/17 09/12/17 09/13/17 23:30 23:37 23:45 00:00 Pulse 94 84 B/P (MAP) 174/62 (99) Pulse Ox 96 94 96 O2 Delivery Room Air Room Air Room Air 09/13/17 09/13/17 09/13/17 09/13/17 00:00 01:00 04:00 04:00 Temp 98.0 Pulse 99 86 80 Resp 18 B/P (MAP) 180/70 (106) 143/66 (91) Pulse Ox 94 96 94 O2 Delivery Room Air Nasal Cannula Nasal Cannula O2 Flow Rate 2.00 2.00 09/13/17 09/13/17 07:00 08:11 Temp 99.7 Pulse 83 B/P (MAP) O2 Delivery Nasal Cannula O2 Flow Rate 1.00 Capillary Refill : Less Than 3 Seconds General Appearance: no apparent distress Eyes: Bilateral Eye Normal Inspection HEENT: normal ENT inspection Neck: supple Respiratory: lungs clear Cardiovascular: irregularly irregular (With rate controlled) Gastrointestinal: soft Rectal: deferred Back: normal inspection Extremities: no pedal edema Assessment/Plan Assessment/Plan Admission Dx 1. Chest pain 2. Atrial fibrillation with rate controlled 3. Headaches 4. Chronic anemia Admission Status: Observation Reason for Inpatient Admission: Further cardiac monitoring on the stepdown unit. Assessment & Plan 1. Chest pain -Patient to be admitted to cardiac stepdown with serial EKG and troponin -Cardiology consultation--ordered per ED 2. Atrial fibrillation with rate controlled -Currently reassuring with rate controlled -Medications as per cardiology 3. Headaches -CT of head ordered through ED 4. Chronic anemia -Continue to monitor hemoglobin. At this point no blood transfusion -She will follow-up with Dr. Field outpatient Clinical Quality Measures AMI/AHF: ASA po Prior to arrival: No DVT/VTE Risk/Contraindication: Risk Factor Score Per Nursin RFS Level Per Nursing on Admit: 3=High JOSE ANTONIO FLOOD MD Sep 13, 2017 08:40
[2017-09-13] MEDS ORDERED: meTOprolol TARTRATE 50 MG (LOPRESSOR) TAB PO SCH ×2 (09:00→21:00)
[2017-09-13 12:00] VITALS: BP 162/79
[2017-09-13] MEDS ORDERED: NITR0.4T42 PO (13:38)
[2017-09-13] MEDS ORDERED: ONDA8TAB12 PO (13:38)
[2017-09-13] MEDS ORDERED: LEVO200T6 PO (13:38)
[2017-09-13] MEDS ORDERED: FURO20TA4 PO (13:38)
[2017-09-13] MEDS ORDERED: LEVO25TA5 PO (13:38)
--- NOTE | 2017-09-13 14:00 | Consultation-Cardiology ---
HPI-Cardiology Cardiology Consultation: Date of Consultation 09/13/17 Time Seen by Provider: 12:45 Date of Admission Attending Physician Carla Wilson MD Admitting Physician Carla Wilson MD Consulting Physician ARNIE MCKEON MD, MA, FACP, FACC, FSCAI, CCDS Primary County Director Welfare: Dr Jorge HPI: Chief Complaint: CC: Chest discomfort HPI: 62 yo woman with chronic intermittent chest discomfort admitted last night with epigastric discomfort lasting several hours, now resolved, feeling of dull discomfort/mild burning, sometimes radiating to shoulders and back, not associated with other symptoms, w/o any aggravating or relieving factors, similar to previous (chronically recurrent) episodes (but lasting longer). Chronic episodes for several months to years occurring several times a month. Has chronic exertional shortness of breath. Denies palp or syncope. Chronic mild to mod intermittent leg swelling. Some degree of chronic malaise and loss of stamina. Denies recent fever or chills Review of Systems-Cardiology Review of Systems Constitutional: As described under HPI Eyes: No vision change Ears/Nose/Throat: No ear discharge, No nasal drainage, No recent hearing loss Respiratory: As described under HPI Cardiovascular: As described under HPI Gastrointestinal: No constipation, No diarrhea, No nausea, No vomiting, other ( reports chronically prolapsing and reducing hemorrhoids) Genitourinary: No dysuria, No hematuria, No urine frequency changes Musculoskeletal: back pain (chronic) Skin: No rash, No ulcerations Psychiatric/Neurological: No seizure, No focal weakness, No syncope Hematologic: bleeding abnormalities (other than h/o GI bleeds) All Other Systems Reviewed Negative Unless Noted: Yes XLK-Eklesi-Asrnle Hx Patient Social History Alcohol Use: Denies Use Recreational Drug Use: No Smoking Status: Former Smoker Type Used: Cigarettes Recent Foreign Travel: No Recent Infectious Disease Expo: No Hospitalization with Isolation: Denies Physical Abuse Screen: No Sexual Abuse: No Immunizations Up To Date Tetanus Booster (TDap): Unknown Date of Pneumonia Vaccine: Jun 23, 2016 Date of Influenza Vaccine: Mar 15, 2017 Past Medical History PMH As described under Assessment. Family Medical History Family Medical History: Does not report fam h/o early CAD or SCD Allergies and Home Medications Allergies Coded Allergies: Jjvunsq-Zjn-Bii Reductase Inhibitor (Verified Allergy, Intermediate, GI UPSET, N/V, 01/01/17) cefadroxil (Unverified Allergy, Mild, 01/01/17) diltiazem (Verified Allergy, Unknown, mouth burning and swelling, 02/23/17) Home Medications Cetirizine HCl 10 Mg Tablet, 10 MG PO DAILY, (Reported) Furosemide 20 Mg Tablet, 20 MG PO DAILY, (Reported) Glimepiride 2 Mg Tablet, 2 MG PO BID, (Reported) Gluc 2Kcl/Chondr/Caty Hy/Hy AC 1 Each Capsule, 1 TAB PO BID, (Reported) Levothyroxine Sodium 200 Mcg Tablet, 200 MCG PO DAILY, (Reported) Levothyroxine Sodium 25 Mcg Tablet, 25 MCG PO DAILY, (Reported) Metformin HCl 1,000 Mg Tablet, 1,000 MG PO BID, (Reported) Metoprolol Succinate 100 Mg Tab.er.24h, 100 MG PO HS, (Reported) Metoprolol Succinate 50 Mg Tab.er.24h, 50 MG PO AM, (Reported) Nitroglycerin 0.4 Mg Tab.subl, 0.4 MG PO UD PRN for CHEST PAIN, (Reported) Omeprazole 40 Mg Capsule.dr, 40 MG PO BID, (Reported) Ondansetron HCl 8 Mg Tablet, 8 MG PO Q8H PRN for NAUSEA/VOMITING-1ST LINE, ( Reported) Promethazine HCl 25 Mg Tablet, 25 MG PO Q6H PRN for NAUSEA/VOMITING-4TH LINE, ( Reported) Sucralfate 1 Gm Tablet, 1 GM PO QID, (Reported) Tramadol HCl 50 Mg Tablet, 50 MG PO TID PRN for PAIN-MODERATE, (Reported) Patient Home Medication List Home Medication List Reviewed: Yes Physical Exam-Cardiology Physical Exam Vital Signs/I&O Vital Sign - Last 12Hours 09/13/17 09/13/17 09/13/17 09/13/17 04:00 04:00 07:00 08:10 Temp 98.0 Pulse 80 83 Resp 18 B/P (MAP) 143/66 (91) Pulse Ox 96 94 O2 Delivery Nasal Cannula Nasal Cannula Nasal Cannula O2 Flow Rate 2.00 2.00 1.00 09/13/17 09/13/17 09/13/17 08:10 08:11 08:11 Temp 99.7 B/P (MAP) Pulse Ox 94 O2 Delivery Nasal Cannula Nasal Cannula Nasal Cannula O2 Flow Rate 1.00 1.00 1.00 Capillary Refill : Less Than 3 Seconds Constitutional: AAO x 3, well-developed, well-nourished HEENT: PERRL, EOMI, oral hygience is good, No xanthelasmas are seen Neck: carotid pulses are 2 + bilaterally Respiratory: No accessory muscle use, lungs clear to auscultation Cardiovascular: irregularly irregular, S1 and S2, systolic murmur (faint KAVITA at card base) Gastrointestinal: No tender, soft, No guarding, No rebound Rectal: deferred Extremities: No clubbing, No cyanosis, No significant edema Neurologic/Psychiatric: oriented x 3, grossly intact, power is 5/5 both on sides Skin: No rash on exposed areas, No ulcerations on exposed areas Data Review Labs Laboratory Tests 09/12/17 19:55: White Blood Count 7.0, Red Blood Count 2.67L, Hemoglobin 8.1L, Hematocrit 26L, Mean Corpuscular Volume 97, Mean Corpuscular Hemoglobin 30, Mean Corpuscular Hemoglobin Concent 31L, Red Cell Distribution Width 16.1H, Platelet Count 159, Mean Platelet Volume 10.0, Neutrophils (%) (Auto) 69, Lymphocytes (%) (Auto) 18 , Monocytes (%) (Auto) 8, Eosinophils (%) (Auto) 5, Basophils (%) (Auto) 0, Neutrophils # (Auto) 4.8, Lymphocytes # (Auto) 1.3, Monocytes # (Auto) 0.5, Eosinophils # (Auto) 0.4H, Basophils # (Auto) 0.0, Prothrombin Time 14.0, INR Comment 1.1, Activated Partial Thromboplast Time 29, Sodium Level 140, Potassium Level 4.0, Chloride Level 103, Carbon Dioxide Level 23, Anion Gap 14, Blood Urea Nitrogen 19H, Creatinine 1.50H, Estimat Glomerular Filtration Rate 35 , BUN/Creatinine Ratio 13, Glucose Level 176H, Calcium Level 9.6, Magnesium Level 1.4L, Total Bilirubin 0.6, Aspartate Amino Transf (AST/SGOT) 51H, Alanine Aminotransferase (ALT/SGPT) 24, Alkaline Phosphatase 65, Myoglobin 52.6, Troponin I < 0.30, Total Protein 7.6, Albumin 3.9, Amylase Level 59, Lipase 55 09/13/17 02:05: White Blood Count 7.2, Red Blood Count 2.59L, Hemoglobin 8.0L, Hematocrit 25L, Mean Corpuscular Volume 98, Mean Corpuscular Hemoglobin 31, Mean Corpuscular Hemoglobin Concent 31L, Red Cell Distribution Width 16.1H, Platelet Count 167, Mean Platelet Volume 9.6, Neutrophils (%) (Auto) 68, Lymphocytes (%) (Auto) 20, Monocytes (%) (Auto) 7, Eosinophils (%) (Auto) 5, Basophils (%) (Auto) 0, Neutrophils # (Auto) 5.0, Lymphocytes # (Auto) 1.4, Monocytes # (Auto) 0.5, Eosinophils # (Auto) 0.3, Basophils # (Auto) 0.0, Sodium Level 141, Potassium Level 4.2, Chloride Level 103, Carbon Dioxide Level 25, Anion Gap 13, Blood Urea Nitrogen 19H, Creatinine 1.40H, Estimat Glomerular Filtration Rate 38, BUN/ Creatinine Ratio 14, Glucose Level 174H, Calcium Level 9.3, Total Bilirubin 0.5 , Aspartate Amino Transf (AST/SGOT) 54H, Alanine Aminotransferase (ALT/SGPT) 24 , Alkaline Phosphatase 64, Myoglobin 80.2, Troponin I < 0.30, Total Protein 7.1 , Albumin 3.7, Triglycerides Level 180H, Cholesterol Level 200, LDL Cholesterol Direct 124, VLDL Cholesterol 36, HDL Cholesterol 41 Laboratory Tests 09/12/17 19:55 09/13/17 02:05 A/P-Cardiology Assessment/Admission Diagnosis Chest discomfort w/o any evidence of ACS PAF CAD with h/o prox RCA stenting with Promus 2.5 x 28 mm in May [address] Garza. Card cath of 2013 showed diffuse mod, nonobstructive disease involving all cors , normal LVEF. Last card cath of 01/20/[address] Sosa showed mod to mod-severe multivessel CAD that has been managed conservatively because pt is not a suitable candidate for antiplatelet therapy. LVEF on cath was 60% and LVEDP was elevated H/o multiple GI bleeds treated with multiple blood transfusions, according to the patient Iron deficiency anemia - receiving iron infusions- management per oncology/ hematology services. Dr Haywood of the [facility] has been following this and feels iron deficiency is due to occult GI blood loss and recommended d/c all anticoag/antiplatelet agents Hypertension Hypothyroidism - thyroid replacement tx Elevated BMI of approx 45 EGD and colonoscopy of December [address] Holt showed hiatal hernia, gastritis and hemorrhoids DM II Chronic psoriasis Hyperlipidemia - intolerant to all statins d/t n/v and muscle aches - has been treated with Repatha, but currently not on it and cannot recall why Chronic bilat leg swelling, likely due to venous insuff. L leg chronically swells more (following remote ankle surgery) Discussion and Recomendations * This a very complex management problem due to competing issues: from a card standpoint she needs aspirin for CAD and OAC for PAF; this is not acceptable from heme standpoint (her pcp and winery cellar hand have prohibited these agents because of ongoing occult GI bleed requiring blood transfusions and iron infusions) * We have advised continuation of current card regimen * We have advised f/u with Dr Jorge, her smart grid engineer, for monitoring and adjustment of card meds, including therapy for hyperlipidemia * We discussed management of chest discomfort and advised return to ER in case of recurrent or new symptoms Clinical Quality Measures AMI/AHF: ASA po Prior to arrival: No DVT/VTE Risk/Contraindication: Risk Factor Score Per Nursin RFS Level Per Nursing on Admit: 3=High ARNIE MCKEON MD FACP FAC CCDS Sep 13, 2017 14:00
== END 2017-09-13 13:29 | disposition home or self-care (01) ==
LOC: EDUNIT# 20:48 → ER 20:50 → ICU 22:15 → UNDOADMOB 22:15 → ICU 23:20 → UNDODISOB 09-13 14:45
PROVIDERS: ADMIT Family Medicine; ATTEND Family Medicine
DX: R07.89 Other chest pain (principal); I25.10 Atherosclerotic heart disease of native coronary artery without angina pectoris; Z95.5 Presence of coronary angioplasty implant and graft; D50.9 Iron deficiency anemia, unspecified; I10 Essential (primary) hypertension; E03.9 Hypothyroidism, unspecified; E11.9 Type 2 diabetes mellitus without complications; L40.9 Psoriasis, unspecified; E78.5 Hyperlipidemia, unspecified; I48.91 Unspecified atrial fibrillation; R60.0 Localized edema; R51 Headache; Z87.891 Personal history of nicotine dependence; Z88.8 Allergy status to other drugs, medicaments and biological substances; Z79.899 Other long term (current) drug therapy
CPT/HCPCS: 36415; 70450; 71045; 80053; 80061; 82150; 83690; 83735; 83874; 84484; 85025; 85610; 85730; 93005

== ENCOUNTER 2017-10-03 22:07 | Observation (INO) | payer OTHER ==
[~2017-10-03] VITALS: Ht 162.6 cm; Wt 131.3 kg
[~2017-10-03 22:07] MED LIST changes: +FURO20TA4 PO; +LEVO200T6 PO; +LEVO25TA5 PO; +NITR0.4T42 PO; +ONDA8TAB12 PO
--- OUTSIDE RECORDS SUMMARY | 2017-10-03 22:12 | XMS REPORT | Continuity of Care Document ---
Author Author [employer] Organization [facility] Address Unknown Phone Unavailable Care Team Providers Care Bull Ladle Tender Name Role Phone [employer] Unavailable Unavailable Problems Medications Allergies, Adverse Reactions, Alerts Immunizations Results Vital Signs Encounters Location Location Details Encounter Type Encounter Number Reason For Visit Attending Provider ADM Date DC Date Status Source [place] SERIES [id number] SUZAN RICARDO 09/28/2017 09/28/2017 Active [facility] O SUZAN RICARDO Active [facility] Procedures Plan of Care Social History Assessment and Plan Family History Advance Directives Functional Status
--- OUTSIDE RECORDS SUMMARY | 2017-10-03 22:13 | XMS REPORT | Encounter Summary ---
Author Author [facility] Organization [facility] Address Unknown Phone Unavailable Care Team Providers Care Automobile Bumper Straightener Name Role Phone Carla Wilson MD PCP Naima Field MD Unavailable Encounter Details Date Type Department Care Team Description 09/23/2017 Telephone [facility] Phu Erazo RN [facility] - Exam [address] [place] [id number] Social History Tobacco Use Types Packs/Day Years Used Date Never Assessed Sex Assigned at Date Recorded Not on file as of this encounter Miscellaneous Notes * Telephone Encounter - Phu Erazo RN - 09/23/2017 9:00 AM CDT Formatting of this note may be different from the original. Navigation Intake Assessment Document Patient Name: Deborah Fields : 1955 Insurance: Self Pay Appointment Info: Future Appointments Date Time Provider Department Center 09/28/2017 2:00 PM Sri Okeefe MD [facility] Exam 09/28/2017 2:00 PM TARIK LEGGETT [facility] Exam Diagnosis & Reason for Visit: Iron Deficiency anemia, GI blood loss Physician Info: Referring Physician: Self Referral PCP: Carla Wilson MD Contact Name & Number: [phone] Medical Oncologist: Naima Grace MD History of Present Illness: The patient is a 62 year old female with a history of VICKY, hypertension, diabetes, hypothyroidism, CAD. Patient has anemia due to GI blood loss. Underwent several endoscopies and was diagnosed with AVM. Over the last year, her hemoglobin has ranged for 6.5-7.5 which has required blood transfusion every 2-3 weeks. Patient reports symptoms of headaches, lightheadedness, dizziness, and chest pain due to the low hemoglobin. She has acquired a blood antibody due to the frequent transfusions. Receives IV iron infusions twice per month. Patient is requesting a second opinion. in this encounter Plan of Treatment Not on fileas of this encounter Visit Diagnoses Not on filein this encounter
--- OUTSIDE RECORDS SUMMARY | 2017-10-03 22:13 | XMS REPORT | Encounter Summary ---
Author Author [facility] Organization [facility] Address Unknown Phone Unavailable Care Team Providers Care Parts Picker Name Role Phone Carla Wilson MD PCP Naima Field MD Unavailable Reason for Visit * Reason Comments Results Encounter Details Date Type Department Care Team Description 10/01/2017 Telephone [facility] Sri Okeefe MD Results [facility] - OP Exam [id number] [place] [address] [phone] [id number] [phone] Social History Tobacco Use Types Packs/Day Years Used Date Former Smoker Cigarettes 2 10 Quit: 09/28/1981 Smokeless Tobacco: Never Used Alcohol Use Drinks/Week oz/Week Comments Yes Seldom Sex Assigned at Date Recorded Not on file as of this encounter Functional Status Functional Status Response Date of Assessment Does the patient have a hearing impairment: No 09/28/2017 Does the patient have a visual impairment: Yes 09/28/2017 Does the patient have impaired ambulation: No 09/28/2017 Does the patient have an activity of daily living No 09/28/2017 (ADL) impairment: Does the patient have an instrumental activity of No 09/28/2017 daily living (IADL) impairment: Cognitive Status Response Date of Assessment Does the patient have a cognitive impairment: No 09/28/2017 as of this encounter Miscellaneous Notes * Telephone Encounter - Chichi Appiah RN - 10/01/2017 2:38 PM CDT Called patient with lab results and provider direction/ comments. She verbalized understanding. Stated that she was scheduled for IV iron on Thursday at her usual clinic, as well as a B12 injection. Stated she would discuss with Dr. Field direction to consider different GI for evaluation for blood loss. * Telephone Encounter - Chichi Appiah RN - 10/01/2017 2:38 PM CDT ----- Message from Sri Okeefe MD sent at 09/30/2017 3:53 PM CDT ----- Please call Deborah that her hemoglobin is 8 grams. The irons levels are still marginal. No evidence of hemolysis, reticulocyte count is high, so her bone marrow is active. I have talked to Dr. Field and I agree with his evaluation. I suggested giving the IV iron now and consider a different GI for evaluation. in this encounter Plan of Treatment Not on fileas of this encounter Visit Diagnoses Not on filein this encounter
--- OUTSIDE RECORDS SUMMARY | 2017-10-03 22:13 | XMS REPORT | Encounter Summary ---
Author Author [facility] Organization [facility] Address Unknown Phone Unavailable Care Team Providers Care Curam Developer Name Role Phone Carla Wilson MD PCP Naima Field MD Unavailable Encounter Details Date Type Department Care Team Description 09/28/2017 Hospital [facility] Sri Okeefe MD Arrived [facility]counter [facility] [address] [place] [address] [phone] Social History Tobacco Use Types Packs/Day Years [...] impairment: No 09/28/2017 as of this encounter Medications at Time of Discharge Medication Sig. Disp. Refills Start Date End Date CETIRIZINE HCL (ZYRTEC Take 1 tablet by mouth as PO) Needed. enalapril (VASOTEC) 5 mg Take 5 mg by mouth daily. tablet folic acid (FOLVITE) 1 mg Take 1 mg by mouth daily. tablet furosemide (LASIX) 20 mg Take 20 mg by mouth every tablet morning. glimepiride (AMARYL) 2 mg Take 2 mg by mouth twice tablet daily. GLUCOSAMINE Take 1 tablet by mouth HCL/CHONDROITIN CALDERON twice daily. (GLUCOSAMINE-CHONDROITIN PO) levothyroxine (SYNTHROID) Take 200 mcg by mouth 200 mcg tablet daily 30 minutes before breakfast. levothyroxine (SYNTHROID) Take 25 mcg by mouth 25 mcg tablet daily 30 minutes before breakfast. LOPERAMIDE HCL Take 1 tablet by mouth as (ANTI-DIARRHEA PO) Needed. metFORMIN (GLUCOPHAGE) Take 500 mg by mouth 500 mg tablet twice daily with meals. metoprolol XL (TOPROL XL) Take 100 mg by mouth 100 mg extended release twice daily. tablet nitroglycerin (NITROSTAT) Place 0.4 mg under tongue 0.4 mg tablet every 5 minutes as needed for Chest Pain. Max of 3 tablets, call 911. omepraz[address] DR(+) Take 40 mg by mouth twice (PRILOSEC) 40 mg capsule daily. promethazine (PHENERGAN) Take 25 mg by mouth every 25 mg tablet 6 hours as needed for Nausea or Vomiting. sucralfate (CARAFATE) 1 Take 1 g by mouth four gram tablet times daily. Take on an empty stomach. traMADol (ULTRAM) 50 mg Take 50 mg by mouth every tablet 6 hours as needed for Pain. as of this encounter Plan of Treatment Not on fileas of this encounter Results * ERYTHROPOIETIN (09/28/2017 3:42 PM) Component Value Ref Range Erythropoietin 48.1 (H) 3.7 - 29.5 MU/ML Specimen Performing Laboratory Blood MAIN LAB [address] [place] [address] * PERIPHERAL SMEAR (09/28/2017 3:42 PM) Component Value Ref Range Peripheral Smear NORMOCYTIC ANEMIA WITH MILD ANISOPOIKILOCYTOSIS. THE WBC AND PLATELET MORPHOLOGY IS UNREMARKABLE. Pathologist Signature INTERPRETED BY BERTO FIERRO M.D. By the PATH SIGNATURE ABOVE, I attest that I have personally formulated the final interpretation expressed in this report and that the above diagnosis is based upon my examination of the slides and/or other material indicated in this report. Specimen Performing Laboratory Blood MAIN [facility] [address] [place] [address] * LDH-LACTATE DEHYDROGENASE (09/28/2017 3:42 PM) Component Value Ref Range Lactate Dehydrogenase 173 100 - 210 U/L Specimen Performing Laboratory Blood [facility]IN [facility] [address] [place] [id number] * HAPTOGLOBIN (09/28/2017 3:42 PM) Component Value Ref Range Haptoglobin 140 16 - 200 MG/DL Specimen Performing Laboratory Blood [facility]IN [facility] [address] [place] [id number] * IRON + BINDING CAPACITY + %SAT+ FERRITIN (09/28/2017 3:42 PM) Component Value Ref Range Iron 51 50 - 160 MCG/DL Iron Binding-TIBC 422 (H) 270 - 380 MCG/DL % Saturation 12 (L) 28 - 42 % Ferritin 146 10 - 200 NG/ML Specimen Performing Laboratory Blood MAIN [facility] [address] [place] [id number] * RETICULOCYTE COUNT (09/28/2017 3:42 PM) Component Value Ref Range Retic, Uncorrected 4.1 (H) 0.5 - 2.0 % Retic, Corrected 2.4 % Retic, Absolute 106.3 (H) 30 - 94 K/UL Specimen Performing Laboratory Blood MAIN [facility] [address] [place], [place] [id number] * CBC AND DIFF (09/28/2017 3:42 PM) Component Value Ref Range White Blood Cells 4.9 4.5 - 11.0 K/UL RBC 2.65 (L) 4.0 - 5.0 M/UL Hemoglobin 8.0 (L) 12.0 - 15.0 GM/DL Hematocrit 25.0 (L) 36 - 45 % MCV 94.6 80 - 100 FL MCH 30.4 26 - 34 PG MCHC 32.1 32.0 - 36.0 G/DL RDW 17.2 (H) 11 - 15 % Platelet Count 165 150 - 400 K/UL MPV 7.5 7 - 11 FL Neutrophils 64 41 - 77 % Lymphocytes 22 (L) 24 - 44 % Monocytes 8 4 - 12 % Eosinophils 5 0 - 5 % Basophils 1 0 - 2 % Absolute Neutrophil Count 3.20 1.8 - 7.0 K/UL Absolute Lymph Count 1.10 1.0 - 4.8 K/UL Absolute Monocyte Count 0.40 0 - 0.80 K/UL Absolute Eosinophil Count 0.30 0 - 0.45 K/UL Absolute Basophil Count 0.00 0 - 0.20 K/UL Specimen Performing Laboratory Blood [facility] [address] [address] in this encounter Visit Diagnoses Diagnosis Anemia, unspecified type
--- OUTSIDE RECORDS SUMMARY | 2017-10-03 22:13 | XMS REPORT | Clinical Summary ---
Author Author [facility] Organization [facility] Address Unknown Phone Unavailable Care Team Providers Care Agricultural Systems Specialist Name Role Phone Carla Wilson MD PCP Naima Field MD Unavailable Source Comments Some departments are not documenting in the electronic medical record. If you do not see the information that you expected, contact Release of Information in the Health Information Management department at [phone] for further assistance in locating additional records.[facility] Allergies Active Allergy Reactions Severity Noted Date Comments Diltiazem RASH, NAUSEA AND Medium 09/28/2017 Sore mouth VOMITING, SEE COMMENTS Cefadroxil NAUSEA AND VOMITING Low 09/28/2017 Pravastatin NAUSEA AND VOMITING Low 09/28/2017 Simvastatin NAUSEA AND VOMITING Low 09/28/2017 Current Medications Prescription Sig. Disp. Refills Start End Date Status Date levothyroxine (SYNTHROID) Take 200 mcg by mouth Active 200 mcg tablet daily 30 minutes before breakfast. levothyroxine (SYNTHROID) Take 25 mcg by mouth Active 25 mcg tablet daily 30 minutes before breakfast. folic acid (FOLVITE) 1 mg Take 1 mg by mouth daily. Active tablet sucralfate (CARAFATE) 1 Take 1 g by mouth four Active gram tablet times daily. Take on an empty stomach. metoprolol XL (TOPROL XL) Take 100 mg by mouth Active 100 mg extended release twice daily. tablet promethazine (PHENERGAN) Take 25 mg by mouth every Active 25 mg tablet 6 hours as needed for Nausea or Vomiting. nitroglycerin (NITROSTAT) Place 0.4 mg under tongue Active 0.4 mg tablet every 5 minutes as needed for Chest Pain. Max of 3 tablets, call 911. furosemide (LASIX) 20 mg Take 20 mg by mouth every Active tablet morning. omeprazole DR(+) Take 40 mg by mouth twice Active (PRILOSEC) 40 mg capsule daily. CETIRIZINE HCL (ZYRTEC Take 1 tablet by mouth as Active PO) Needed. enalapril (VASOTEC) 5 mg Take 5 mg by mouth daily. Active tablet GLUCOSAMINE Take 1 tablet by mouth Active HCL/CHONDROITIN CALDERON twice daily. (GLUCOSAMINE-CHONDROITIN PO) traMADol (ULTRAM) 50 mg Take 50 mg by mouth every Active tablet 6 hours as needed for Pain. glimepiride (AMARYL) 2 mg Take 2 mg by mouth twice Active tablet daily. metFORMIN (GLUCOPHAGE) Take 500 mg by mouth Active 500 mg tablet twice daily with meals. LOPERAMIDE HCL Take 1 tablet by mouth as Active (ANTI-DIARRHEA PO) Needed. Active Problems Problem Noted Date Anemia 09/28/2017 Encounters Date Type Specialty Care Team Description 10/01/2017 Telephone Oncology Sri Okeefe MD Results 09/28/2017 Hospital Lab Sri Okeefe MD Arrived Encounter 09/28/2017 Office Visit Oncology Sri Okeefe MD Anemia, unspecified type (Primary Dx) 09/23/2017 Telephone Oncology Phu Erazo RN from Last 3 Months Family History Medical History Relation Name Comments Arthritis-rheumatoid Brother Cancer Brother Coronary Artery Disease Brother Hypertension Brother Rashes/Skin Problems Brother Cancer Father Heart Disease Maternal Aunt Cancer Maternal Grandmother Diabetes Maternal Grandmother Heart Disease Maternal Grandmother Arthritis-rheumatoid Mother Coronary Artery Disease Mother Diabetes Mother Heart Disease Mother High Cholesterol Mother Hyperlipidemia Mother Stroke Mother Thyroid Disease Mother Cancer Paternal Grandfather Cancer Paternal Grandmother Cancer-Colon Paternal Grandmother Diabetes Paternal Grandmother Coronary Artery Disease Paternal Uncle Hyperlipidemia Paternal Uncle Arthritis-osteo Sister Cancer Sister Cancer-Breast Sister Depression Sister Heart Disease Sister High Cholesterol Sister Hyperlipidemia Sister Hypertension Sister Migraines Sister Rashes/Skin Problems Sister Relation Name Status Comments Brother Father Maternal Aunt Maternal Grandmother Mother Paternal Grandfather Paternal Grandmother Paternal Uncle Sister Social History Tobacco Use Types Packs/Day Years Used Date Former Smoker Cigarettes 2 10 Quit: 09/28/1981 Smokeless Tobacco: Never Used Alcohol Use Drinks/Week oz/Week Comments Yes Seldom Sex Assigned at Date Recorded Not on file Last Filed Vital Signs Vital Sign Reading Time Taken Blood Pressure 133/39 09/28/2017 2:10 PM CDT Pulse 78 09/28/2017 2:10 PM CDT Temperature 36.8 C (98.2 F) 09/28/2017 2:10 PM CDT Respiratory Rate 18 09/28/2017 2:10 PM CDT Oxygen Saturation 99% 09/28/2017 2:10 PM CDT Inhaled Oxygen - - Concentration Weight 123.4 kg (272 lb) 09/28/2017 2:10 PM CDT Height 160 cm (5' 3") 09/28/2017 2:10 PM CDT Body Mass Index 48.18 09/28/2017 2:10 PM CDT Plan of Treatment Health Maintenance Due Date Last Done Comments HEPATITIS C SCREENING 1957 PHYSICAL (COMPREHENSIVE) 1964 EXAM PERTUSSIS VACCINE 1968 HIV SCREENING 1972 TETANUS VACCINE 1974 CERVICAL CANCER SCREENING 1987 BREAST CANCER SCREENING 1997 COLORECTAL CANCER 2007 SCREENING SHINGLES VACCINE 2017 INFLUENZA VACCINE 03/15/2018 03/15/2017 (Previously completed) Results * IRON + BINDING CAPACITY + %SAT+ FERRITIN (09/28/2017 3:42 PM) Component Value Ref Range Iron 51 50 - 160 MCG/DL Iron Binding-TIBC 422 (H) 270 - 380 MCG/DL % Saturation 12 (L) 28 - 42 % Ferritin 146 10 - 200 NG/ML Specimen Performing Laboratory Blood [facility] [address] [place] [id number] * PERIPHERAL SMEAR (09/28/2017 3:42 PM) Component [...] Specimen Performing Laboratory Blood MAIN [facility] [address] [place] [address] * ERYTHROPOIETIN (09/28/2017 3:42 PM) Component Value Ref Range Erythropoietin 48.1 (H) 3.7 - 29.5 MU/ML Specimen Performing Laboratory Blood MAIN [facility] [address] [place] [address] * RETICULOCYTE COUNT (09/28/2017 3:42 PM) Component Value Ref Range Retic, Uncorrected 4.1 (H) 0.5 - 2.0 % Retic, Corrected 2.4 % Retic, Absolute 106.3 (H) 30 - 94 K/UL Specimen Performing Laboratory Blood MAIN [facility] [address] [place] [address] * CBC AND DIFF (09/28/2017 3:42 PM) [...] - 0.20 K/UL Specimen Performing Laboratory Blood [facility] [address] [address] * LDH-LACTATE DEHYDROGENASE (09/28/2017 3:42 PM) Component Value Ref Range Lactate Dehydrogenase 173 100 - 210 U/L Specimen Performing Laboratory Blood MAIN [facility] [address] [place] [address] * HAPTOGLOBIN (09/28/2017 3:42 PM) Component Value Ref Range Haptoglobin 140 16 - 200 MG/DL Specimen Performing Laboratory Blood MAIN LAB [address] [place] [address] from Last 3 Months
--- OUTSIDE RECORDS SUMMARY | 2017-10-03 22:13 | XMS REPORT | Encounter Summary ---
Author Author [facility] Organization [facility] Address Unknown Phone Unavailable Care Team Providers Care Corrective Therapy Aide Name Role Phone Carla Wilson MD PCP Naima Field MD Unavailable Reason for Visit * Reason Comments Heme/Onc Care Encounter Details Date Type Department Care Team Description 09/28/2017 Office Visit [facility] Sri Okeefe MD Anemia, unspecified type Cancer Center - OP Exam [address] (Primary Dx) [address] [phone] [address] [phone] Social History Tobacco Use Types Packs/Day Years Used Date Former Smoker Cigarettes 2 10 Quit: 09/28/1981 Smokeless Tobacco: Never Used Alcohol Use Drinks/Week oz/Week Comments Yes Seldom Sex Assigned at Date Recorded Not on file as of this encounter Last Filed Vital Signs Vital Sign Reading [...] Mass Index 48.18 09/28/2017 2:10 PM CDT in this encounter Functional Status Functional Status Response [...] impairment: No 09/28/2017 as of this encounter Instructions * Patient Instructions - Chichi Appiah RN - 09/28/2017 2:00 PM CDT If you need anything, call Chichi at [phone]. You can also email at [email or web address] or through [employer]. If you do send an email and don't get a response within 1-2 days, please call. My email is not accessible to anyone else when I am out of the office, and I'd hate to come back from vacation to hear that you' ve been waiting on a response for weeks! My fax number is [phone]. in this encounter Progress Notes * Sri Okeefe MD - 09/28/2017 2:00 PM CDT Formatting of this note may be different from the original. Date of Service: 09/28/2017 Subjective: Reason for Visit: New patient visit, self-referral. Heme/Onc Care Second opinion for anemia/GI bleeding. Analytical Lead, Dr. Naima Field. Deborah Fields is a 62 y.o. female. Cancer Staging No matching staging information was found for the patient. History of Present Illness Deborah is a 62-year-old female. She is from [facility]. She is being seen at [facility]. Patient had developed anemia back in 2013 , with hemoglobin of 9.1 g. She was seen by digital program manager and workup include normal serum protein electrophoresis. From what I can tell from the records and blood tests is that she was found to be iron deficient. However, the colonoscopy showed polyps only and the recent EGD showed erosive gastritis but no active bleeding. Patient said she had the capsule endoscopy twice because she would pass the camera quickly due to diarrhea. The notes from her physician said there were some abnormalities seen on capsule endoscopy but does not specifically state the nature and the patient does not recall what she was told. She has been transfused with red cells and given IV iron. In 2017, she had atrial fibrillation and was put on apixaban. After which she had worsening of anemia thought secondary to GI bleeding and had to be taken off anticoagulation. Patient was also found to be vitamin B12 deficient and is receiving vitamin B12 injections monthly. Current management is transfuse as needed however, she is needing blood transfusion every 2-3 weeks which is getting more difficult to find a match for her. She has to be transfused when hemoglobin drops below 8 because she gets symptomatic from her cardiac disease. She reports that her last IV iron 09/02/2017. She was transfused with blood on 09/02/2017 and again on 09/16/2017 for hemoglobin of 7.5 g. It raised the hemoglobin to 8.2. She said her FOBT last year was positive but she has hemorrhoids. The patient has not had a bone marrow biopsy. She has other competing comorbidities such as coronary artery disease, paroxysmal atrial fibrillation, diabetes, and liver cirrhosis with portal hypertension seen on CT scan. Her review of systems is very positive as noted below, but specifically she has not seen melena, she has some blood in her stool but she thinks it is from her hemorrhoids. Past Medical History: Diagnosis Date Acquired hypothyroidism Arthritis Back pain Bleeding disorder (HCC) Coronary artery disease Diabetes mellitus (HCC) Type II Hypertension Stomach disorder Vision decreased Past Surgical History: Procedure Laterality Date HX HEART CATHETERIZATION 2017 CORONARY STENT PLACEMENT 2017 ANKLE SURGERY Left ankle reconstruction COLONOSCOPY HX KNEE ARTHROSCOPY Left HX TONSIL AND ADENOIDECTOMY TUBAL LIGATION UPPER GASTROINTESTINAL ENDOSCOPY Family History Problem Relation Age of Onset Diabetes Mother Heart Disease Mother High Cholesterol Mother Arthritis-rheumatoid Mother Stroke Mother Thyroid Disease Mother Coronary Artery Disease Mother Hyperlipidemia Mother Cancer Father Cancer-Breast Sister Cancer Sister Hypertension Sister Heart Disease Sister High Cholesterol Sister Arthritis-osteo Sister Migraines Sister Rashes/Skin Problems Sister Depression Sister Hyperlipidemia Sister Cancer Brother Hypertension Brother Arthritis-rheumatoid Brother Rashes/Skin Problems Brother Coronary Artery Disease Brother Heart Disease Maternal Aunt Coronary Artery Disease Paternal Uncle Hyperlipidemia Paternal Uncle Cancer Maternal Grandmother Diabetes Maternal Grandmother Heart Disease Maternal Grandmother Cancer-Colon Paternal Grandmother Cancer Paternal Grandmother Diabetes Paternal Grandmother Cancer Paternal Grandfather Social History Social History Marital status: Spouse name: N/A Number of children: N/A Years of education: N/A Social History Main Topics Smoking status: Former Smoker Packs/day: 2.00 Years: 10.00 Types: Cigarettes Quit date: 09/28/1981 Smokeless tobacco: Never Used Alcohol use Yes Comment: Seldom Drug use: No Sexual activity: Not on file Other Topics Concern Not on file Social History Narrative No narrative on file Review of Systems Constitutional: Positive for activity change, appetite change, chills, fatigue and unexpected weight change. HENT: Positive for sneezing. Respiratory: Positive for cough, chest tightness and shortness of breath. Cardiovascular: Positive for chest pain, palpitations and leg swelling. Atrial Fibrillation Gastrointestinal: Positive for abdominal distention, abdominal pain, anal bleeding, blood in stool, diarrhea, nausea and rectal pain. Genitourinary: Positive for enuresis and urgency. Musculoskeletal: Positive for arthralgias, back pain, gait problem, joint swelling, myalgias and neck pain. Neurological: Positive for dizziness, weakness, light-headedness, numbness and headaches. Hematological: Does not bruise/bleed easily. Psychiatric/Behavioral: Positive for sleep disturbance (Due to chest pains.). The patient is nervous/anxious. Objective: CETIRIZINE HCL (ZYRTEC PO) Take 1 tablet by mouth as Needed. enalapril (VASOTEC) 5 mg tablet Take 5 mg by mouth daily. folic acid (FOLVITE) 1 mg tablet Take 1 mg by mouth daily. furosemide (LASIX) 20 mg tablet Take 20 mg by mouth every morning. glimepiride (AMARYL) 2 mg tablet Take 2 mg by mouth twice daily. GLUCOSAMINE HCL/CHONDROITIN CALDERON (GLUCOSAMINE-CHONDROITIN PO) Take 1 tablet by mouth twice daily. levothyroxine (SYNTHROID) 200 mcg tablet Take 200 mcg by mouth daily 30 minutes before breakfast. levothyroxine (SYNTHROID) 25 mcg tablet Take 25 mcg by mouth daily 30 minutes before breakfast. LOPERAMIDE HCL (ANTI-DIARRHEA PO) Take 1 tablet by mouth as Needed. metFORMIN (GLUCOPHAGE) 500 mg tablet Take 500 mg by mouth twice daily with meals. metoprolol XL (TOPROL XL) 100 mg extended release tablet Take 100 mg by mouth twice daily. nitroglycerin (NITROSTAT) 0.[address] 0.4 mg under tongue every 5 minutes as needed for Chest Pain. Max of 3 tablets, call 911. omeprazole DR(+) (PRILOSEC) 40 mg capsule Take 40 mg by mouth twice daily. promethazine (PHENERGAN) 25 mg tablet Take 25 mg by mouth every 6 hours as needed for Nausea or Vomiting. sucralfate (CARAFATE) 1 gram tablet Take 1 g by mouth four times daily. Take on an empty stomach. traMADol (ULTRAM) 50 mg tablet Take 50 mg by mouth every 6 hours as needed for Pain. Vitals: 09/28/17 1410 BP: (!) 133/39 Pulse: 78 Resp: 18 Temp: 36.8 C (98.2 F) TempSrc: Oral SpO2: 99% Weight: 123.4 kg (272 lb) Height: 160 cm (63") Body mass index is 48.18 kg/m. Pain Score: Four (Knees, ankles) Pain Loc: Back Pain Addressed: N/A Patient Evaluated for a Clinical Trial: Patient not eligible for a treatment trial (including not needing treatment, needs palliative care, in remission). Eastern Cooperative Oncology Group performance status is 0, Fully active, able to carry on all pre-disease performance without restriction.. Physical Exam Constitutional: She appears well-developed and well-nourished. No distress. HENT: Mouth/Throat: Oropharynx is clear and moist. Eyes: Conjunctivae are normal. No scleral icterus. Neck: Neck supple. Cardiovascular: Normal rate, regular rhythm and normal heart sounds. Pulmonary/Chest: Effort normal and breath sounds normal. Abdominal: Soft. Bowel sounds are normal. She exhibits no distension and no mass. There is tenderness (epigastric). Musculoskeletal: She exhibits edema (leg, mild). She exhibits no tenderness. Lymphadenopathy: She has no cervical adenopathy. Skin: Skin is warm. Psychiatric: She has a normal mood and affect. Her behavior is normal. Thought content normal. No results found for this or any previous visit (from the past 336 hour(s)). Assessment and Plan: 1. Anemia, unspecified etiology. However, she has iron deficiency and was thought to have chronic GI bleeding. I explained to her that anemia could be due to abnormal red blood cell production, hemolysis, or blood loss. Differential diagnosis here are MDS, hemolysis (although the normal bilirubin goes against hemolysis), iron deficiency from GI blood loss, anemia of chronic kidney disease, and anemia of liver disease. It is concerning that the blood transfusion does not last but 2-3 weeks only. She is already being replaced with vitamin B12 supplement. The most recent labs from 09/13/2017 showed creatinine of 1.4, bilirubin is normal at 0.5, and total protein is normal at 7.1. CBC, iron studies, reticulocyte count, haptoglobin, LDH, erythropoietin level, and I am sending a peripheral blood smear review to the pathologist. We have deferred repeating the CMP as it was just done 2 weeks ago. We have given her a requisition to repeat the fecal occult blood screen. If the reticulocyte count is high, then it goes along with an active bone marrow. If it is low, that she may need a bone marrow biopsy. If she is iron deficient, then we had to continue looking for source of blood loss. She may not be absorbing the iron. If the erythropoietin is low, then she may have a component of chronic kidney disease and will benefit from EFRAIN. We will call her with the results. I am anticipating she is almost due for another blood transfusion. Discussed with the patient and all questions fully answered. She will call me if any problems arise. 45 minutes spent face to face with patient, with more than 50% of time on counseling and coordination of care. Time include review of outside records, formulation of plan. Addendum: Hemoglobin is 8 g, reticulocyte count is high at 4.1% which goes along with active bone marrow. Her haptoglobin is normal and also the LDH, which goes against hemolysis. Her erythropoietin level is elevated at 48.1. Her iron studies though showed a marginal level serum iron of 51, TIBC 422, and iron saturation is 12%, ferritin 146. This is in spite receiving iron 1 month ago. The clinical picture I think goes along with chronic blood loss. I contacted Dr. Field. He confirmed that the capsule endoscopy showed abnormal findings. Unfortunately, it is hard to predict when and where the bleeding will occur. He said that the fecal occult blood screen has persistently been positive. He sent the results of the PillCam from 04/10/2017 which showed erythematous regions of small bowel, no active bleed or mass is seen. I suggest going ahead with another course of IV iron now and try to stay ahead. Perhaps refer to a different government gauger who may be able to do a push enteroscopy that will see directly see the proximal portion of the small intestine, at least. Dr. Field said he will refer her to a different GI clinic. He can call me at any time at [phone]. We will call the patient with the results of her blood tests and to inform her that I have talked to Dr. Field. CBC w/Diff Lab Results Component Value Date/Time WBC 4.9 09/28/2017 03:42 PM RBC 2.65 (L) 09/28/2017 03:42 PM HGB 8.0 (L) 09/28/2017 03:42 PM HCT 25.0 (L) 09/28/2017 03:42 PM MCV 94.6 09/28/2017 03:42 PM MCH 30.4 09/28/2017 03:42 PM MCHC 32.1 09/28/2017 03:42 PM RDW 17.2 (H) 09/28/2017 03:42 PM PLTCT 165 09/28/2017 03:42 PM MPV 7.5 09/28/2017 03:42 PM Lab Results Component Value Date/Time NEUT 64 09/28/2017 03:42 PM ANC 3.20 09/28/2017 03:42 PM LYMA 22 (L) 09/28/2017 03:42 PM ALC 1.10 09/28/2017 03:42 PM CASI 8 09/28/2017 03:42 PM AMC 0.40 09/28/2017 03:42 PM EOSA 5 09/28/2017 03:42 PM AEC 0.30 09/28/2017 03:42 PM BASA 1 09/28/2017 03:42 PM ABC 0.00 09/28/2017 03:42 PM Ref Range & Units 09/28/17 1542 Retic, Uncorrected 0.5 - 2.0 % 4.1 Retic, Corrected % 2.4 Retic, Absolute 30 - 94 K/UL 106.3 Ref Range & Units 09/28/17 1542 Iron 50 - 160 MCG/DL 51 Iron Binding-TIBC 270 - 380 MCG/DL 422 % Saturation 28 - 42 % 12 Ferritin 10 - 200 NG/ML 146 Ref Range & Units 09/28/17 1542 Haptoglobin 16 - 200 MG/DL 140 Ref Range & Units 09/28/17 1542 Lactate Dehydrogenase 100 - 210 U/L 173 Ref Range & Units 09/28/17 1542 Erythropoietin 3.7 - 29.5 MU/ML 48.1 Problem List Items Addressed This Visit None in this encounter Plan of Treatment Name Priority Associated Diagnoses Order Schedule OCCULT BLOOD NON COLON CANCER SCREEN Routine Anemia, unspecified type Expected: 10/05/2017 (Approximate), Expires: 09/28/2018 as of this encounter Results * ERYTHROPOIETIN (09/28/2017 3:42 PM) Component Value Ref Range Erythropoietin 48.1 (H) 3.7 - 29.5 MU/ML Specimen Performing Laboratory Blood MAIN LAB [address] [place] [address] * PERIPHERAL SMEAR (09/28/2017 3:42 PM) Component [...] report. Specimen Performing Laboratory Blood MAIN LAB [address] [place] [address] * LDH-LACTATE DEHYDROGENASE (09/28/2017 3:42 PM) Component Value Ref Range Lactate Dehydrogenase 173 100 - 210 U/L Specimen Performing Laboratory Blood [facility] [address] [place] [address] * HAPTOGLOBIN (09/28/2017 3:42 PM) Component Value Ref Range Haptoglobin 140 16 - 200 MG/DL Specimen Performing Laboratory Blood [facility] [address] [place] [address] * IRON + BINDING CAPACITY + %SAT+ FERRITIN (09/28/2017 3:42 PM) Component Value Ref Range Iron 51 50 - 160 MCG/DL Iron Binding-TIBC 422 (H) 270 - 380 MCG/DL % Saturation 12 (L) 28 - 42 % Ferritin 146 10 - 200 NG/ML Specimen Performing Laboratory Blood [facility] [address] [place] [address] * RETICULOCYTE COUNT (09/28/2017 3:42 PM) Component Value Ref Range Retic, Uncorrected 4.1 (H) 0.5 - 2.0 % Retic, Corrected 2.4 % Retic, Absolute 106.3 (H) 30 - 94 K/UL Specimen Performing Laboratory Blood MAIN LAB [address] [place], [place] [address] [place] [address] * CBC AND DIFF (09/28/2017 3:42 PM) [...] - 0.20 K/UL Specimen Performing Laboratory Blood [facility] [place] [address] [place] [id number] in this encounter Visit Diagnoses Diagnosis Anemia, unspecified type - Primary
--- OUTSIDE RECORDS SUMMARY | 2017-10-03 22:14 | XMS REPORT ---
Author Author JAMES TORRES [facility] Address [address] [place] [address] Care Team Providers Care Mechanical Designer Name Role Phone JAMES TORRES Unavailable PROBLEMS Type Condition ICD9-CM Code BMV86-KI Code Onset Dates Condition Status SNOMED Code Problem Acquired hypothyroidism E03.9 Active 714349445 Problem Persistent atrial fibrillation I48.1 Active 607769887 Problem Angina pectoris syndrome I20.9 Active 169679487 Problem Non-insulin treated type 2 diabetes mellitus E11.9 Active 429482943 Problem Non-intractable cyclical vomiting with nausea G43.A0 Active 38897760 Problem Psoriasis L40.9 Active 9713658 Problem Microcytic anemia D50.9 Active 978959961 Problem Reflux gastritis K29.60 Active 04643269 Problem Paroxysmal atrial fibrillation I48.0 Active 689745563 Problem Non-insulin dependent type 2 diabetes mellitus E11.9 Active 47700171 Problem History of anemia Z86.2 Active 465569731 Problem Coronary artery disease involving jamul coronary artery of jamul heart without angina pectoris I25.10 Active 8091042520529 Problem 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 Active 801576508 Problem Essential hypertension I10 Active 42885723 ALLERGIES No Information ENCOUNTERS Encounter Location Date Diagnosis [facility] [address] [address] Sep, [facility] [address] [place] [address] Aug, Non-insulin dependent type 2 diabetes mellitus E11.9 ; Microcytic anemia D50.9 ; Essential hypertension I10 and Acquired hypothyroidism E03.9 [facility] [address] [place] [address] Jul, [facility] [address] [id number] [place] [address] Jul, [facility] [id number] [place] [address] Jun, [place] [address] [address] May, [place] [address] [address] May, History of anemia Z86.2 [place] [address] [address] May, [place] [address] [address] May, [place] [address] [address] May, Non-insulin treated type 2 diabetes mellitus E11.9 [place] [address] [address] Apr, Abdominal pain, left upper quadrant R10.12 ; Right hand weakness R29.898 ; Essential hypertension I10 and Non-intractable cyclical vomiting with nausea G43.A0 [place] [address] [address] Apr, [place] [address] [address] Apr, Non-insulin treated type 2 diabetes mellitus E11.9 ; Essential hypertension I10 and Acquired hypothyroidism E03.9 [place] [address] [place] [address] [id number] [place] [address] Mar, Encounter for immunization Z23 [place] [address] [address] Mar, [place] [address] [address] Feb, Microcytic anemia D50.9 ; Pain of left great toe M79.675 and Reflux gastritis K29.60 [place] [address] [place] [address] Feb, Coronary artery disease involving jamul coronary artery of jamul heart without angina pectoris I25.10 and Acquired hypothyroidism E03.9 [facility] [id number] [place] [address] Jan, Psoriasis L40.9 ; Paroxysmal atrial fibrillation I48.0 ; Shortness of breath R06.02 and Microcytic anemia D50.9 [place] [id number] [place] [address] Dec, [place] [address] [id number] [place] [address] Dec, [place] [id number] [place] [address] Dec, Coronary artery disease involving jamul coronary artery of jamul heart without angina pectoris I25.10 [place] [id number] [place] [address] Nov, Therapeutic drug monitoring Z51.81 ; Essential hypertension I10 ; Microcytic anemia D50.9 and Shortness of breath R06.02 [place] [id number] [place] [address] Nov, Acquired hypothyroidism E03.9 [place] [id number] [place] [address] October, [place] [id number] [place] [address] Sep, Coronary artery disease involving jamul coronary artery of jamul heart without angina pectoris I25.10 [place] [id number] [place] [address] Aug, [place] [id number] [place] [address] Aug, Essential hypertension I10 [place] [id number] [place] [address] 20 Jul, 2016 Acquired hypothyroidism E03.9 ; Essential hypertension I10 ; Non-insulin treated type 2 diabetes mellitus E11.9 and Coronary artery disease involving jamul coronary artery of jamul heart without angina pectoris I25.10 [facility] [address] [place] [address] Jul, [place] [address] [place] [address] Jul, Angina pectoris syndrome I20.9 and Essential hypertension I10 [place] [address] [place] [address] Jul, [place] [address] [place] [address] Jun, [facility] [address] [place] [address] May, Abscess L02.91 [facility] [address] [place] [address] 22 Apr, 2016 Non-insulin dependent type 2 diabetes mellitus E11.9 ; Essential hypertension I10 ; Acquired hypothyroidism E03.9 ; History of anemia Z86.2 and Coronary artery disease involving jamul coronary artery of jamul heart without angina pectoris I25.10 [place] [address] [place] [address] 14 Apr, 2016 IMMUNIZATIONS No Known Immunizations SOCIAL HISTORY Never Assessed REASON FOR VISIT Referral for Rx's PLAN OF CARE VITAL SIGNS MEDICATIONS Unknown [...]
--- OUTSIDE RECORDS SUMMARY | 2017-10-03 22:19 | XMS REPORT | Continuity of Care Document ---
Author Author [facility] Organization [facility] Address Unknown Phone Unavailable Allergies Active Description Code Type Severity Reaction Onset Reported/Identified Relationship to Patient Clinical Status Yes methotrexate [id number] Drug Allergy Unknown N/A 03/24/2014 Yes Djiuprd-Owi-Azu Reductase Inhibitor [id number] Drug Allergy Moderate GI UPSET, N/V 01/01/2017 Yes cefadroxil [id number] Drug Allergy Mild N/A 01/01/2017 Yes diltiazem [id number] Drug Allergy Unknown mouth burning a 02/23/2017 Medications There is no data. 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 SHIREEN AGARWAL Ot I12.9 HYPERTENSIVE CHRONIC KIDNEY DISEASE W ST SHIREEN AGARWAL Ot I25.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[place] CORONARY SHIREEN AGARWAL Ot I48.91 UNSPECIFIED ATRIAL FIBRILLATION SHIREEN AGARWAL Ot N18.3 CHRONIC KIDNEY DISEASE, STAGE 3 (MODERAT SHIREEN AGARWAL Ot Z79.899 OTHER FLOW NURSE (CURRENT) DRUG THERAPY 05/14/1018 MELIZA KHOURY, BRANDEN Capone D50.9 IRON DEFICIENCY ANEMIA, UNSPECIFIED 05/14/1018 BRANDEN HAIDER MD Ot E03.9 HYPOTHYROIDISM, UNSPECIFIED 05/14/1018 BRANDEN HAIDER MD Ot 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 05/14/1018 BRANDEN HAIDER MD Ot I12.9 HYPERTENSIVE CHRONIC KIDNEY DISEASE W ST 05/14/1018 BRANDEN HAIDER MD Ot I25.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[place] CORONARY 05/14/1018 MELIZA KHOURY, BRANDEN Ot I48.91 UNSPECIFIED ATRIAL FIBRILLATION 05/14/1018 BRANDEN HAIDER MD Ot N18.3 CHRONIC KIDNEY DISEASE, STAGE 3 (MODERAT 05/14/1018 BRANDEN HAIDER MD Ot Z79.899 OTHER RETIREMENT (CURRENT) DRUG THERAPY 05/22/2010 Ot 250.00 05/22/2010 Ot 272.4 05/22/2010 Ot 401.9 05/22/2010 Ot 414.01 05/22/2010 Ot 427.31 03/02/2014 LINDA KHOURY FACC, ALI FACP CCDS Ot 244.9 HYPOTHYROIDISM NOS [...] FACP CCDS Ot 414.01 CORONARY ATHEROSCLEROSIS OF [place] CORON 03/02/2014 LINDA KHOURY FACC, ALI FACP CCDS Ot 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 03/02/2014 LINDA KHOURY FACFernanda, ALI FACP CCDS Ot 696.1 OTHER PSORIASIS 03/02/2014 LINDA GONZALESC, ALI FACP CCDS Ot 786.05 SHORTNESS OF BREATH 03/02/2014 LINDA KHOURY FACC, ALI FACP CCDS Ot 786.59 CHEST PAIN [...] BOBAN N Ot 414.01 CORONARY ATHEROSCLEROSIS OF [place] CORON 05/16/2014 ANY, BOBAN N Ot 585.3 [...] FACP CCDS Ot 427.0 06/05/2014 LINDA KHOURY FAC, ALI FACP CCDS Ot 785.1 07/15/2014 ANY, [...] BOBAN N Ot 414.01 CORONARY ATHEROSCLEROSIS OF [place] CORON 08/30/2014 ANY, BOBAN N Ot 585.3 [...] 272.4 10/05/2014 Ot 250.00 10/05/2014 CHICHI RIVAS ANALYTICAL STRATEGIST Ot 574.20 10/05/2014 CHICHI RIVAS ANALYTICAL STRATEGIST Ot 789.1 10/05/2014 LINDA KHOURY FACC, ARNIE FACP CCDS Ot 401.9 10/05/2014 LINDA KHOURY FACFernanda, ARNIE FACP CCDS Ot 414.00 10/05/2014 LINDA KHOURY FACFernanda, ALI FACP CCDS Ot 427.31 10/05/2014 TY KHOURY, TONIE Diaz Ot V72.84 10/05/2014 LINDA KHOURY FACC, ALI FACP CCDS Ot 250.00 10/05/2014 ILNDA KHOURY FACC, ALI FACP CCDS Ot 401.9 [...] 10/05/2014 Ot 250.00 10/05/2014 ROB CHICHI H ANALYTICAL STRATEGIST Ot 574.20 10/05/2014 ROB CHICHI H ANALYTICAL STRATEGIST Ot 789.1 10/05/2014 LINDA KHOURY FACC, ALI FACP CCDS Ot 401.9 10/05/2014 LINDA KHOURY [facility], ALI FACP CCDS Ot 414.00 10/05/2014 LINDA [...] BOBAN N Ot 414.01 CORONARY ATHEROSCLEROSIS OF [place] CORON 12/27/2014 ANY, BOBAN N Ot 585.3 [...] 03/21/2015 OVI KHOURY, TORI-FRANKIE Ot I10 03/22/2015 OVI KHOURY, TORI-FRANKIE Ot E03.9 03/22/2015 OVI KHOURY, TORI-FRANKIE [...] AGARWAL Ot I25.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[place] CORONARY 06/13/2015 SHIREEN AGARWAL Ot I48.91 UNSPECIFIED ATRIAL FIBRILLATION 06/13/2015 SHIREEN AGARWAL Ot N18.3 CHRONIC KIDNEY DISEASE, STAGE 3 (MODERAT 06/13/2015 SHIREEN AGARWAL Ot V58.69 OTH MED,LT,CURRENT USE 06/13/2015 SHIREEN AGARWAL Ot Z79.899 OTHER RETIREMENT (CURRENT) DRUG THERAPY 09/27/2015 SHIREEN AGARWAL N Ot D64.9 09/27/2015 SHIREEN AGARWAL N Ot E03.9 09/27/2015 SHIREEN AGARWAL N Ot E11.9 09/27/2015 SHIREEN AGARWAL Ot I12.9 09/27/2015 SHIREEN AGARWAL Ot I25.10 09/27/2015 SHIREEN AGARWAL Ot I48.91 09/27/2015 SHIREEN AGARWAL Ot N18.3 09/27/2015 SHIREEN AGARWAL Ot Z79.899 09/27/2015 Ot 401.9 09/27/2015 Ot 272.4 09/27/2015 Ot 250.00 09/27/2015 CHICHI RIVAS ANALYTICAL STRATEGIST Ot 574.20 09/27/2015 CHICHI RIVAS ANALYTICAL STRATEGIST Ot 789.1 09/27/2015 LINDA KHOURY FAC, ALI FACP CCDS Ot 401.9 09/27/2015 LINDA KHOURY [facility], ALI FACP CCDS Ot 414.00 09/27/2015 LINDA [...] OVI KHOURY, TORI-FRANKIE Ot E11.65 09/27/2015 OVI KOHURY, TORI-FRANKIE Ot E78.5 09/27/2015 OVI KHOURY, TORI-FRANKIE [...] HYPERTENSIVE CHRONIC KIDNEY DISEASE W ST 10/09/2015 ANY, BOBAN N Ot I25.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[place] CORONARY 10/09/2015 ANY, BOBAN N Ot I48.91 UNSPECIFIED ATRIAL FIBRILLATION 10/09/2015 ANY, BOBAN N Ot N18.3 CHRONIC KIDNEY DISEASE, STAGE 3 (MODERAT 10/09/2015 ANY, BOBAN N Ot Z79.899 OTHER FLOW NURSE (CURRENT) DRUG THERAPY 10/17/2015 ANY, BOBAN N Ot D64.9 ANEMIA, UNSPECIFIED 10/17/2015 ANY, BOBAN N Ot E03.9 HYPOTHYROIDISM, UNSPECIFIED 10/17/2015 ANY, BOBAN N Ot 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 10/17/2015 ANY, BOBAN N Ot I12.9 HYPERTENSIVE CHRONIC KIDNEY DISEASE W ST 10/17/2015 ANY, BOBAN N Ot I25.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[place] CORONARY 10/17/2015 ANY, BOBAN N Ot I48.91 UNSPECIFIED ATRIAL FIBRILLATION 10/17/2015 ANY, BOBAN N Ot N18.3 CHRONIC KIDNEY DISEASE, STAGE 3 (MODERAT 10/17/2015 ANY, BOBAN N Ot Z79.899 OTHER FLOW NURSE (CURRENT) DRUG THERAPY 10/19/2015 ANY, BOBAN N Ot D64.9 ANEMIA, UNSPECIFIED 10/19/2015 ANY, BOBAN N Ot E03.9 HYPOTHYROIDISM, UNSPECIFIED 10/19/2015 ANY, BOBAN N Ot 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 10/19/2015 ANY, BOBAN N Ot I12.9 HYPERTENSIVE CHRONIC KIDNEY DISEASE W ST 10/19/2015 ANY, BOBAN N Ot I25.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[place] CORONARY 10/19/2015 ANY, BOBAN N Ot I48.91 UNSPECIFIED ATRIAL FIBRILLATION 10/19/2015 ANY, BOBAN N Ot N18.3 CHRONIC KIDNEY DISEASE, STAGE 3 (MODERAT 10/19/2015 ANY, BOBAN N Ot Z79.899 OTHER FLOW NURSE (CURRENT) DRUG THERAPY 11/16/2015 ANY, BOBAN N Ot D50.9 IRON DEFICIENCY ANEMIA, UNSPECIFIED 11/16/2015 ANY, BOBAN N Ot Z79.899 OTHER RETIREMENT (CURRENT) DRUG THERAPY 12/03/2015 ANY, BOBAN N Ot D50.9 IRON DEFICIENCY ANEMIA, UNSPECIFIED 12/03/2015 ANY, BOBAN N Ot Z79.899 OTHER FLOW NURSE (CURRENT) DRUG THERAPY 01/03/2016 Ot 272.4 HYPERLIPIDEMIA NEC/NOS 01/03/2016 Ot 250.00 DIAB NALLELY WO COMPL, TYPE II OR UNSPEC TY 01/03/2016 ROB, CHICHI H ANALYTICAL STRATEGIST Ot 574.20 CHOLELITHIASIS NOS 01/03/2016 CHICHI RIVAS ANALYTICAL STRATEGIST Ot 789.1 HEPATOMEGALY 01/03/2016 LINDA KHOURY FAC, [...] 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 01/03/2016 ANY, BOBAN N Ot I12.9 HYPERTENSIVE CHRONIC KIDNEY DISEASE W ST 01/03/2016 ANY, BOBAN N Ot I25.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[place] CORONARY 01/03/2016 ANY, BOBAN N Ot I48.91 UNSPECIFIED ATRIAL FIBRILLATION 01/03/2016 ANY, BOBAN N Ot N18.3 CHRONIC KIDNEY DISEASE, STAGE 3 (MODERAT 01/03/2016 ANY, BOBAN N Ot Z79.899 OTHER FLOW NURSE (CURRENT) DRUG THERAPY 01/03/2016 ANY, BOBAN N Ot D50.9 IRON DEFICIENCY ANEMIA, UNSPECIFIED 01/03/2016 ANY, BOBAN N Ot Z79.899 OTHER RETIREMENT (CURRENT) DRUG THERAPY 01/03/2016 NAY, BOBAN N Ot D64.9 ANEMIA, UNSPECIFIED 01/03/2016 ANY, BOBAN N Ot E03.9 HYPOTHYROIDISM, UNSPECIFIED 01/03/2016 ANY, BOBAN N Ot 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 01/03/2016 ANY, BOBAN N Ot I12.9 HYPERTENSIVE CHRONIC KIDNEY DISEASE W ST 01/03/2016 ANY, BOBAN N Ot I25.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[place] CORONARY 01/03/2016 ANY, BOBAN N Ot I48.91 UNSPECIFIED ATRIAL FIBRILLATION 01/03/2016 ANY, BOBAN N Ot N18.3 CHRONIC KIDNEY DISEASE, STAGE 3 (MODERAT 01/03/2016 ANY, BOBAN N Ot Z79.899 OTHER FLOW NURSE (CURRENT) DRUG THERAPY 01/03/2016 Ot 272.4 HYPERLIPIDEMIA NEC/NOS 01/03/2016 Ot 250.00 DIAB NALLELY WO COMPL, TYPE II OR UNSPEC TY 01/03/2016 CHICHI RIVAS Ot 574.20 CHOLELITHIASIS NOS 01/03/2016 CHICHI RIVAS ANALYTICAL STRATEGIST Ot 789.1 HEPATOMEGALY 01/03/2016 LINDA KHOURY FACC, [...] 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 01/03/2016 SHIREEN AGARWAL N Ot I12.9 HYPERTENSIVE CHRONIC KIDNEY DISEASE W ST 01/03/2016 SHIREEN AGARWAL N Ot I25.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[place] CORONARY 01/03/2016 SHIREEN AGARWAL N Ot I48.91 UNSPECIFIED ATRIAL FIBRILLATION 01/03/2016 SHIREEN AGARWAL N Ot N18.3 CHRONIC KIDNEY DISEASE, STAGE 3 (MODERAT 01/03/2016 SHIREEN AGARWAL N Ot Z79.899 OTHER RETIREMENT (CURRENT) DRUG THERAPY 01/03/2016 SHIREEN AGARWAL N Ot D50.9 IRON DEFICIENCY ANEMIA, UNSPECIFIED 01/03/2016 SHIREEN AGARWAL N Ot Z79.899 OTHER FLOW NURSE (CURRENT) DRUG THERAPY 01/04/2016 Ot 272.4 HYPERLIPIDEMIA NEC/NOS 01/04/2016 Ot 250.00 DIAB NALLELY WO COMPL, TYPE II OR UNSPEC TY 01/04/2016 CHICHI RIVAS ANALYTICAL STRATEGIST Ot 574.20 CHOLELITHIASIS NOS 01/04/2016 CHICHI RIVAS ANALYTICAL STRATEGIST Ot 789.1 HEPATOMEGALY 01/04/2016 LINDA KHOURY FACC, [...] Ot 427.0 PAROX ATRIAL TACHYCARDIA 01/04/2016 LINDA MD FACC, ALI FACP CCDS Ot 785.1 PALPITATIONS [...] KHOURY, TORI-FRANKIE Ot E03.9 HYPOTHYROIDISM, UNSPECIFIED 01/04/2016 VOI KHOURY, TORI-FRANKIE Ot E11.9 TYPE 2 DIABETES MELLITUS WITHOUT COMPLIC 01/04/2016 OVI KHOURY, TORI-FRANKIE Ot E78.5 HYPERLIPIDEMIA, UNSPECIFIED 01/04/2016 OVI KHOURY, OTRI-FRANKIE Ot I10 ESSENTIAL (PRIMARY) HYPERTENSION 01/04/2016 SHIREEN AGARWAL Ot D64.9 ANEMIA, UNSPECIFIED 01/04/2016 SHIREEN AGARWAL Ot E03.9 HYPOTHYROIDISM, UNSPECIFIED 01/04/2016 SHIREEN AGARWAL Ot 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 01/04/2016 SHIREEN AGARWAL Ot I12.9 HYPERTENSIVE CHRONIC KIDNEY DISEASE W ST 01/04/2016 SHIREEN AGARWAL Ot I25.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[place] CORONARY 01/04/2016 SHIREEN AGARWAL Ot I48.91 UNSPECIFIED ATRIAL FIBRILLATION 01/04/2016 SHIREEN AGARWAL Ot N18.3 CHRONIC KIDNEY DISEASE, STAGE 3 (MODERAT 01/04/2016 SHIREEN AGARWAL Ot Z79.899 OTHER RETIREMENT (CURRENT) DRUG THERAPY 01/04/2016 SHIREEN AGARWAL Ot D50.9 IRON DEFICIENCY ANEMIA, UNSPECIFIED 01/04/2016 SHIREEN AGARWAL Ot Z79.899 OTHER RETIREMENT (CURRENT) DRUG THERAPY 01/07/2016 SHIREEN AGARWAL Ot D50.9 IRON DEFICIENCY ANEMIA, UNSPECIFIED 01/07/2016 SHIREEN AGARWAL Ot Z79.899 OTHER FLOW NURSE (CURRENT) DRUG THERAPY 01/13/2016 SHIREEN AGARWAL Ot D50.9 IRON DEFICIENCY ANEMIA, UNSPECIFIED 01/13/2016 SHIREEN AGARWAL Ot Z79.899 OTHER FLOW NURSE (CURRENT) DRUG THERAPY 08/05/2016 Ot 250.00 DIAB NALLELY WO COMPL, TYPE II OR UNSPEC TY 08/05/2016 CHICHI RIVAS ANALYTICAL STRATEGIST Ot 574.20 CHOLELITHIASIS NOS 08/05/2016 CHICHI RIVAS ANALYTICAL STRATEGIST Ot 789.1 HEPATOMEGALY 08/05/2016 LINDA KHOURY FACC, [...] TYPE II OR UNSPEC TY 08/05/2016 LINDA GONZALESC, ALI FACP CCDS Ot 401.9 [...] 574.20 CHOLELITHIASIS NOS 08/05/2016 HARVEY KHOURY, CLAUDE S Ot 585.2 CHRONIC KIDNEY DISEASE, STAGE II (MILD) 08/05/2016 OVI KHOURY, WU Ot E03.9 HYPOTHYROIDISM, UNSPECIFIED 08/05/2016 OVI KHOURY, FLORIDALMAU Ot E11.65 TYPE 2 DIABETES MELLITUS WITH HYPERGLYCE 08/05/2016 OVI KHOURY, FLORIDALMAU Ot E78.5 HYPERLIPIDEMIA, UNSPECIFIED 08/05/2016 OVI KHOURY, TORI-FRANKIE Ot I10 ESSENTIAL (PRIMARY) HYPERTENSION 08/05/2016 OVI KHOURY, JAYCOBFRANKIE Ot E03.9 HYPOTHYROIDISM, UNSPECIFIED 08/05/2016 OVI KHOURY, TORI-FRANKIE Ot E11.9 TYPE 2 DIABETES MELLITUS WITHOUT COMPLIC 08/05/2016 OVI KHOURY, WU Ot E78.5 HYPERLIPIDEMIA, UNSPECIFIED 08/05/2016 OVI KHOURY, TORI-FRANKIE Ot I10 ESSENTIAL (PRIMARY) HYPERTENSION 08/05/2016 SHIREEN AGARWAL Ot D64.9 ANEMIA, UNSPECIFIED 08/05/2016 SHIREEN AGARWAL Ot E03.9 HYPOTHYROIDISM, UNSPECIFIED 08/05/2016 SHIREEN AGARWAL N Ot 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 08/05/2016 SHIREEN AGARWAL Ot I12.9 HYPERTENSIVE CHRONIC KIDNEY DISEASE W ST 08/05/2016 SHIREEN AGARWAL Ot I25.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[place] CORONARY 08/05/2016 SHIREEN AGARWAL Ot I48.91 UNSPECIFIED ATRIAL FIBRILLATION 08/05/2016 SHIREEN AGARWAL Ot N18.3 CHRONIC KIDNEY DISEASE, STAGE 3 (MODERAT 08/05/2016 SHIREEN AGARWAL N Ot Z79.899 OTHER RETIREMENT (CURRENT) DRUG THERAPY 09/15/2016 SHIREEN AGARWAL N Ot D50.9 IRON DEFICIENCY ANEMIA, UNSPECIFIED 09/15/2016 SHIREEN AGARWAL Ot E03.9 HYPOTHYROIDISM, UNSPECIFIED 09/15/2016 SHIREEN AGARWAL N Ot 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 09/15/2016 SHIREEN AGARWAL N Ot I12.9 HYPERTENSIVE CHRONIC KIDNEY DISEASE W ST 09/15/2016 SHIREEN AGARWAL N Ot I25.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[place] CORONARY 09/15/2016 SHIREEN AGARWAL Ot I48.91 UNSPECIFIED ATRIAL FIBRILLATION 09/15/2016 SHIREEN AGARWAL Ot N18.3 CHRONIC KIDNEY DISEASE, STAGE 3 (MODERAT 09/15/2016 SHIREEN AGARWAL Ot Z79.899 OTHER FLOW NURSE (CURRENT) DRUG THERAPY 09/17/2016 Ot 250.00 DIAB NALLELY WO COMPL, TYPE II OR UNSPEC TY 09/17/2016 ROBCHICHI ANALYTICAL STRATEGIST Ot 574.20 CHOLELITHIASIS NOS 09/17/2016 CHICHI RIVAS ANALYTICAL STRATEGIST Ot 789.1 HEPATOMEGALY 09/17/2016 LINDA KHOURY FACC, [...] DISEASE, STAGE II (MILD) 09/17/2016 OVI KHOURY, UW Ot E03.9 HYPOTHYROIDISM, UNSPECIFIED 09/17/2016 OVI KHOURY, WU Ot E11.65 TYPE 2 DIABETES MELLITUS WITH HYPERGLYCE 09/17/2016 OVI KHOURY, WU Ot E78.5 HYPERLIPIDEMIA, UNSPECIFIED 09/17/2016 OVI KHOURY, TORI-FRANKIE Ot I10 ESSENTIAL (PRIMARY) HYPERTENSION 09/17/2016 OVI KHOURY, FLORIDALMAU Ot E03.9 HYPOTHYROIDISM, UNSPECIFIED 09/17/2016 OVI KHOURY, TORI-FRANKIE Ot E11.9 TYPE 2 DIABETES MELLITUS WITHOUT COMPLIC 09/17/2016 OVI KHOURY, WU Ot E78.5 HYPERLIPIDEMIA, UNSPECIFIED 09/17/2016 OVI KHOURY, TORI-FRANKIE Ot I10 ESSENTIAL (PRIMARY) HYPERTENSION 09/17/2016 ANY, BOBAN N Ot D64.9 ANEMIA, UNSPECIFIED 09/17/2016 ANY, BOBAN N Ot E03.9 HYPOTHYROIDISM, UNSPECIFIED 09/17/2016 ANY, BOBAN N Ot 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 09/17/2016 ANY, BOBAN N Ot I12.9 HYPERTENSIVE CHRONIC KIDNEY DISEASE W ST 09/17/2016 ANY, BOBAN N Ot I25.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[place] CORONARY 09/17/2016 ANY, BOBAN N Ot I48.91 UNSPECIFIED ATRIAL FIBRILLATION 09/17/2016 ANY, BOBAN N Ot N18.3 CHRONIC KIDNEY DISEASE, STAGE 3 (MODERAT 09/17/2016 ANY, BOBAN N Ot Z79.899 OTHER RETIREMENT (CURRENT) DRUG THERAPY 09/17/2016 ANY, BOBAN N Ot D50.9 IRON DEFICIENCY ANEMIA, UNSPECIFIED 09/17/2016 ANY, BOBAN N Ot E03.9 HYPOTHYROIDISM, UNSPECIFIED 09/17/2016 ANY, BOBAN N Ot 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 09/17/2016 ANY, BOBAN N Ot I12.9 HYPERTENSIVE CHRONIC KIDNEY DISEASE W ST 09/17/2016 ANY, BOBAN N Ot I25.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[place] CORONARY 09/17/2016 ANY, BOBAN N Ot I48.91 UNSPECIFIED ATRIAL FIBRILLATION 09/17/2016 ANY, BOBAN N Ot N18.3 CHRONIC KIDNEY DISEASE, STAGE 3 (MODERAT 09/17/2016 ANY, BOBAN N Ot Z79.899 OTHER RETIREMENT (CURRENT) DRUG THERAPY 09/17/2016 KIERAN KHOURY, BERNY Champion Ot I25.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[place] CORONARY 09/17/2016 Ot 250.00 DIAB NALLELY WO COMPL, TYPE II OR UNSPEC TY 09/17/2016 CHICHI RIVAS ANALYTICAL STRATEGIST Ot 574.20 CHOLELITHIASIS NOS 09/17/2016 CHICHI RIVAS ANALYTICAL STRATEGIST Ot 789.1 HEPATOMEGALY 09/17/2016 LINDA KHOURY FACC, [...] Ot 574.20 CHOLELITHIASIS NOS 09/17/2016 HARVEY KHOURY, CLUADE Clement Ot 585.2 CHRONIC KIDNEY DISEASE, STAGE II (MILD) 09/17/2016 OVI KHOURY, WU Ot E03.9 HYPOTHYROIDISM, UNSPECIFIED 09/17/2016 OVI KHOURY, WU Ot E11.65 TYPE 2 DIABETES MELLITUS WITH HYPERGLYCE 09/17/2016 OVI KHOURY, WU Ot E78.5 HYPERLIPIDEMIA, UNSPECIFIED 09/17/2016 OVI KHOURY, WU Ot I10 ESSENTIAL (PRIMARY) HYPERTENSION 09/17/2016 WU DIOR MD Ot E03.9 HYPOTHYROIDISM, UNSPECIFIED 09/17/2016 OVI KHOURY, WU Ot E11.9 TYPE 2 DIABETES MELLITUS WITHOUT COMPLIC 09/17/2016 OVI KHOURY, WU Ot E78.5 HYPERLIPIDEMIA, UNSPECIFIED 09/17/2016 OVI KHOURY, JAYCOBFRANKIE Ot I10 ESSENTIAL (PRIMARY) HYPERTENSION 09/17/2016 ANY, BOBAN N Ot D64.9 ANEMIA, UNSPECIFIED 09/17/2016 ANY, BOBAN N Ot E03.9 HYPOTHYROIDISM, UNSPECIFIED 09/17/2016 ANY, BOBAN N Ot 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 09/17/2016 ANY, BOBAN N Ot I12.9 HYPERTENSIVE CHRONIC KIDNEY DISEASE W ST 09/17/2016 ANY, BOBAN N Ot I25.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[place] CORONARY 09/17/2016 ANY, BOBAN N Ot I48.91 UNSPECIFIED ATRIAL FIBRILLATION 09/17/2016 ANY, BOBAN N Ot N18.3 CHRONIC KIDNEY DISEASE, STAGE 3 (MODERAT 09/17/2016 ANY, BOBAN N Ot Z79.899 OTHER RETIREMENT (CURRENT) DRUG THERAPY 09/17/2016 ANY, BOBAN N Ot D50.9 IRON DEFICIENCY ANEMIA, UNSPECIFIED 09/17/2016 ANY, BOBAN N Ot E03.9 HYPOTHYROIDISM, UNSPECIFIED 09/17/2016 ANY, BOBAN N Ot 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 09/17/2016 ANY, BOBAN N Ot I12.9 HYPERTENSIVE CHRONIC KIDNEY DISEASE W ST 09/17/2016 ANY, BOBAN N Ot I25.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[place] CORONARY 09/17/2016 ANY, BOBAN N Ot I48.91 UNSPECIFIED ATRIAL FIBRILLATION 09/17/2016 ANY, BOBAN N Ot N18.3 CHRONIC KIDNEY DISEASE, STAGE 3 (MODERAT 09/17/2016 ANY, BOBAN N Ot Z79.899 OTHER RETIREMENT (CURRENT) DRUG THERAPY 09/17/2016 KIERAN KHOURY, BERNY Champion Ot I25.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[place] CORONARY 09/17/2016 Ot 250.00 DIAB NALLELY WO COMPL, TYPE II OR UNSPEC TY 09/17/2016 ROB, CHICHI H ANALYTICAL STRATEGIST Ot 574.20 CHOLELITHIASIS NOS 09/17/2016 CHICHI RIVAS ANALYTICAL STRATEGIST Ot 789.1 HEPATOMEGALY 09/17/2016 LINDA KHOURY FACC, [...] OR UNSPEC TY 09/17/2016 HARVEY KHOURY, CLAUDE S Ot 574.20 CHOLELITHIASIS NOS 09/17/2016 HARVEY KHOURY, [...] 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 09/17/2016 ANY, BOBAN N Ot I12.9 HYPERTENSIVE CHRONIC KIDNEY DISEASE W ST 09/17/2016 ANY, BOBAN N Ot I25.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[place] CORONARY 09/17/2016 ANY, BOBAN N Ot I48.91 UNSPECIFIED ATRIAL FIBRILLATION 09/17/2016 ANY, BOBAN N Ot N18.3 CHRONIC KIDNEY DISEASE, STAGE 3 (MODERAT 09/17/2016 ANY, BOBAN N Ot Z79.899 OTHER RETIREMENT (CURRENT) DRUG THERAPY 09/17/2016 ANY, BOBAN N Ot D50.9 IRON DEFICIENCY ANEMIA, UNSPECIFIED 09/17/2016 ANY, BOBAN N Ot E03.9 HYPOTHYROIDISM, UNSPECIFIED 09/17/2016 ANY, BOBAN N Ot 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 09/17/2016 ANY, BOBAN N Ot I12.9 HYPERTENSIVE CHRONIC KIDNEY DISEASE W ST 09/17/2016 ANY, BOBAN N Ot I25.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[place] CORONARY 09/17/2016 ANY, BOBAN N Ot I48.91 UNSPECIFIED ATRIAL FIBRILLATION 09/17/2016 ANY, BOBAN N Ot N18.3 CHRONIC KIDNEY DISEASE, STAGE 3 (MODERAT 09/17/2016 ANY, BOBAN N Ot Z79.899 OTHER FLOW NURSE (CURRENT) DRUG THERAPY 09/17/2016 KIERAN KHOURY, BERNY Champion Ot I25.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[place] CORONARY 09/17/2016 ANY, BOBAN N Ot D50.9 IRON DEFICIENCY ANEMIA, UNSPECIFIED 09/17/2016 ANY, BOBAN N Ot E03.9 HYPOTHYROIDISM, UNSPECIFIED 09/17/2016 ANY, BOBAN N Ot 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 09/17/2016 ANY, BOBAN N Ot I12.9 HYPERTENSIVE CHRONIC KIDNEY DISEASE W ST 09/17/2016 SHIREEN AGARWAL Ot I25.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[place] CORONARY 09/17/2016 SHIREEN AGARWAL Ot I48.91 UNSPECIFIED ATRIAL FIBRILLATION 09/17/2016 SHIREEN AGARWAL Ot N18.3 CHRONIC KIDNEY DISEASE, STAGE 3 (MODERAT 09/17/2016 SHIREEN AGARWAL Ot Z79.899 OTHER RETIREMENT (CURRENT) DRUG THERAPY 09/17/2016 BERNY ALCARAZ MD Ot I25.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[place] CORONARY 09/17/2016 BERNY ALCARAZ MD Ot I25.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[place] CORONARY 10/09/2016 BERNY ALCARAZ MD Ot I25.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[place] CORONARY 10/09/2016 Ot 250.00 DIAB NALLELY WO COMPL, TYPE II OR UNSPEC TY 10/09/2016 CHICHI RIVAS ANALYTICAL STRATEGIST Ot 574.20 CHOLELITHIASIS NOS 10/09/2016 CHICHI RIVAS ANALYTICAL STRATEGIST Ot 789.1 HEPATOMEGALY 10/09/2016 LINDA KHOURY FACC, ALI FACP CCDS [...] Ot E03.9 HYPOTHYROIDISM, UNSPECIFIED 10/09/2016 OVI KHOURY, WU Ot E11.65 TYPE 2 [...] 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 10/09/2016 SHIREEN AGARWAL N Ot I12.9 HYPERTENSIVE CHRONIC KIDNEY DISEASE W ST 10/09/2016 SHIREEN AGARWAL N Ot I25.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[place] CORONARY 10/09/2016 SHIREEN AGARWAL Ot I48.91 UNSPECIFIED ATRIAL FIBRILLATION 10/09/2016 SHIREEN AGARWAL N Ot N18.3 CHRONIC KIDNEY DISEASE, STAGE 3 (MODERAT 10/09/2016 SHIREEN AGARWAL N Ot Z79.899 OTHER FLOW NURSE (CURRENT) DRUG THERAPY 10/09/2016 SHIREEN AGARWAL N Ot D50.9 IRON DEFICIENCY ANEMIA, UNSPECIFIED 10/09/2016 SHIREEN AGARWAL N Ot E03.9 HYPOTHYROIDISM, UNSPECIFIED 10/09/2016 SHIREEN AGARWAL N Ot 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 10/09/2016 SHIREEN AGARWAL N Ot I12.9 HYPERTENSIVE CHRONIC KIDNEY DISEASE W ST 10/09/2016 ANY, BOBAN N Ot I25.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[place] CORONARY 10/09/2016 ANY, BOBAN N Ot I48.91 UNSPECIFIED ATRIAL FIBRILLATION 10/09/2016 ANY, BOBAN N Ot N18.3 CHRONIC KIDNEY DISEASE, STAGE 3 (MODERAT 10/09/2016 ANY, BOBAN N Ot Z79.899 OTHER RETIREMENT (CURRENT) DRUG THERAPY 10/09/2016 KIERAN KHOURY, BERNY R Ot I25.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[place] CORONARY 10/09/2016 KIERAN KHOURY, Wei BRANDON Ot I47.1 SUPRAVENTRICULAR TACHYCARDIA 10/09/2016 KIERAN KHOURY, Wei BRANDON Ot I48.91 UNSPECIFIED ATRIAL FIBRILLATION 10/30/2016 KIERAN KHOURY, BERNY R Ot I25.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[place] CORONARY 11/03/2016 ANY BOBAN N Ot D50.9 IRON DEFICIENCY ANEMIA, UNSPECIFIED 11/03/2016 ANY, BOBAN N Ot E03.9 HYPOTHYROIDISM, UNSPECIFIED 11/03/2016 ANY, BOBAN N Ot 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 11/03/2016 ANY, BOBAN N Ot I12.9 HYPERTENSIVE CHRONIC KIDNEY DISEASE W ST 11/03/2016 ANY, BOBAN N Ot I25.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[place] CORONARY 11/03/2016 ANY BOBAN N Ot I48.91 UNSPECIFIED ATRIAL FIBRILLATION 11/03/2016 ANY BOBAN N Ot N18.3 CHRONIC KIDNEY DISEASE, STAGE 3 (MODERAT 11/03/2016 ANY BOBAN N Ot Z79.899 OTHER FLOW NURSE (CURRENT) DRUG THERAPY 11/04/2016 ANY, BOBAN N Ot D50.9 IRON DEFICIENCY ANEMIA, UNSPECIFIED 11/04/2016 ANY, BOBAN N Ot E03.9 HYPOTHYROIDISM, UNSPECIFIED 11/04/2016 ANY, BOBAN N Ot 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 11/04/2016 ANY, BOBAN N Ot I12.9 HYPERTENSIVE CHRONIC KIDNEY DISEASE W ST 11/04/2016 ANY, BOBAN N Ot I25.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[place] CORONARY 11/04/2016 ANY, BOBAN N Ot I48.91 UNSPECIFIED ATRIAL FIBRILLATION 11/04/2016 ANY, BOBAN N Ot N18.3 CHRONIC KIDNEY DISEASE, STAGE 3 (MODERAT 11/04/2016 ANY, BOBAN N Ot Z79.899 OTHER FLOW NURSE (CURRENT) DRUG THERAPY 11/17/2016 KIERAN KHOURY, BERNY Champion Ot I25.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[place] CORONARY 11/18/2016 ANY, BOBAN N Ot D50.9 IRON DEFICIENCY ANEMIA, UNSPECIFIED 11/18/2016 ANY, BOBAN N Ot E03.9 HYPOTHYROIDISM, UNSPECIFIED 11/18/2016 ANY, BOBAN N Ot 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 11/18/2016 ANY, BOBAN N Ot I12.9 HYPERTENSIVE CHRONIC KIDNEY DISEASE W ST 11/18/2016 ANY, BOBAN N Ot I25.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[place] CORONARY 11/18/2016 ANY, BOBAN N Ot I48.91 UNSPECIFIED ATRIAL FIBRILLATION 11/18/2016 ANY, BOBAN N Ot N18.3 CHRONIC KIDNEY DISEASE, STAGE 3 (MODERAT 11/18/2016 ANY, BOBAN N Ot Z79.899 OTHER RETIREMENT (CURRENT) DRUG THERAPY 12/10/2016 ANY, BOBAN N Ot D50.9 IRON DEFICIENCY ANEMIA, UNSPECIFIED 12/10/2016 ANY, BOBAN N Ot E03.9 HYPOTHYROIDISM, UNSPECIFIED 12/10/2016 ANY, BOBAN N Ot 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 12/10/2016 ANY, BOBAN N Ot I12.9 HYPERTENSIVE CHRONIC KIDNEY DISEASE W ST 12/10/2016 ANY, BOBAN N Ot I25.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[place] CORONARY 12/10/2016 ANY, BOBAN N Ot I48.91 UNSPECIFIED ATRIAL FIBRILLATION 12/10/2016 ANY, BOBAN N Ot N18.3 CHRONIC KIDNEY DISEASE, STAGE 3 (MODERAT 12/10/2016 ANY, BOBAN N Ot Z79.899 OTHER RETIREMENT (CURRENT) DRUG THERAPY 12/12/2016 ANY, BOBAN N Ot D50.9 IRON DEFICIENCY ANEMIA, UNSPECIFIED 12/12/2016 ANY, BOBAN N Ot E03.9 HYPOTHYROIDISM, UNSPECIFIED 12/12/2016 ANY, BOBAN N Ot 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 12/12/2016 SHIREEN AGARWAL Ot I12.9 HYPERTENSIVE CHRONIC KIDNEY DISEASE W ST 12/12/2016 SHIREEN AGARWAL Ot I25.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[place] CORONARY 12/12/2016 SHIREEN AGARWAL Ot I48.91 UNSPECIFIED ATRIAL FIBRILLATION 12/12/2016 SHIREEN AGARWAL Ot N18.3 CHRONIC KIDNEY DISEASE, STAGE 3 (MODERAT 12/12/2016 SHIREEN AGARWAL Ot Z79.899 OTHER RETIREMENT (CURRENT) DRUG THERAPY 12/16/2016 KIERAN KHOURY, Wei BRANDON Ot I47.1 SUPRAVENTRICULAR TACHYCARDIA 12/16/2016 KIERAN KHOURY, Wei BRANDON Ot I48.91 UNSPECIFIED ATRIAL FIBRILLATION 12/20/2016 KIERAN KHOURY, Wei BRANDON Ot I47.1 SUPRAVENTRICULAR TACHYCARDIA 12/20/2016 KIERAN KHOURY, Wei BRANDON Ot I48.91 UNSPECIFIED ATRIAL FIBRILLATION 12/31/2016 Ot 250.00 DIAB NALLELY WO COMPL, TYPE II OR UNSPEC TY 12/31/2016 CHICHI RIVAS ANALYTICAL STRATEGIST Ot 574.20 CHOLELITHIASIS NOS 12/31/2016 CHICHI RIVAS ANALYTICAL STRATEGIST Ot 789.1 HEPATOMEGALY 12/31/2016 LINDA KHOURY FACC, [...] SHIREEN AGARWAL Ot E03.9 HYPOTHYROIDISM, UNSPECIFIED 12/31/2016 SHIRENE AGARWAL Ot 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 12/31/2016 SHIREEN AGARWAL Ot I12.9 HYPERTENSIVE CHRONIC KIDNEY DISEASE W ST 12/31/2016 SHIREEN AGARWAL Ot I25.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[place] CORONARY 12/31/2016 SHIREEN AGARWAL Ot I48.91 UNSPECIFIED ATRIAL FIBRILLATION 12/31/2016 SHIREEN AGARWAL Ot N18.3 CHRONIC KIDNEY DISEASE, STAGE 3 (MODERAT 12/31/2016 SHIREEN AGARWAL Ot Z79.899 OTHER FLOW NURSE (CURRENT) DRUG THERAPY 12/31/2016 KIERAN KHOURY, BERNY Champion Ot I25.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[place] CORONARY 12/31/2016 KIERAN KHOURY, BERNY Champion Ot I25.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[place] CORONARY 12/31/2016 ANY SHIREEN Narvaez Ot D50.9 IRON DEFICIENCY ANEMIA, UNSPECIFIED 12/31/2016 ANY SHIREEN Narvaez Ot E03.9 HYPOTHYROIDISM, UNSPECIFIED 12/31/2016 ANY SHIREEN N Ot 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 12/31/2016 ANY SHIREEN Narvaez Ot I12.9 HYPERTENSIVE CHRONIC KIDNEY DISEASE W ST 12/31/2016 ANY SHIREEN Narvaez Ot I25.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[place] CORONARY 12/31/2016 ANY SHIREEN Narvaez Ot I48.91 UNSPECIFIED ATRIAL FIBRILLATION 12/31/2016 ANY SHIREEN Narvaez Ot N18.3 CHRONIC KIDNEY DISEASE, STAGE 3 (MODERAT 12/31/2016 ANY SHIREEN Narvaez Ot Z79.899 OTHER RETIREMENT (CURRENT) DRUG THERAPY 12/31/2016 KIERAN KHOURY, Wei BRANDON Ot I47.1 SUPRAVENTRICULAR TACHYCARDIA 12/31/2016 KIERAN KHOURY, Wei BRANDON Ot I48.91 UNSPECIFIED ATRIAL FIBRILLATION 01/01/2017 KIERAN KHOURY, Wei BRANDON Ot I47.1 SUPRAVENTRICULAR TACHYCARDIA 01/01/2017 KIERAN KHOURY, Wei BRANDON Ot I48.91 UNSPECIFIED ATRIAL FIBRILLATION 01/01/2017 NWAGWU, ANNELDORE Jasmina TEMPERING KILN TENDER Ot D64.9 ANEMIA, UNSPECIFIED 01/01/2017 NWAGWU, ISIDORE O TEMPERING KILN TENDER Ot D64.9 ANEMIA, UNSPECIFIED 01/02/2017 SABRINA ROSSI DO Ot D50.9 IRON DEFICIENCY ANEMIA, UNSPECIFIED 01/02/2017 SABRINA ROSSI DO Ot E03.9 HYPOTHYROIDISM, UNSPECIFIED 01/02/2017 FLO DOSABRINA Ot 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 01/02/2017 SABRINA ROSSI DO Ot E78.5 HYPERLIPIDEMIA, UNSPECIFIED 01/02/2017 SABRINA ROSSI DO Ot I12.9 HYPERTENSIVE CHRONIC KIDNEY DISEASE W ST 01/02/2017 SABRINA ROSSI DO Ot I25.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[place] CORONARY 01/02/2017 SABRINA ROSSI DO Ot I47.1 SUPRAVENTRICULAR TACHYCARDIA 01/02/2017 SABRINA ROSSI DO Ot I48.91 UNSPECIFIED ATRIAL FIBRILLATION 01/02/2017 SABRINA ROSSI DO Ot K29.70 GASTRITIS, UNSPECIFIED, WITHOUT BLEEDING 01/02/2017 SABRINA ROSSI DO Ot K44.9 DIAPHRAGMATIC HERNIA WITHOUT OBSTRUCTION 01/02/2017 SABRINA ROSSI DO Ot K64.9 UNSPECIFIED HEMORRHOIDS 01/02/2017 ASBRINA ROSSI DO Ot N18.3 CHRONIC KIDNEY DISEASE, STAGE 3 (MODERAT 01/02/2017 SABRINA ROSSI DO Ot R19.5 OTHER FECAL ABNORMALITIES 01/02/2017 SABRINA ROSSI DO Ot Z79.01 FLOW NURSE (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 OF ANTICOAGULANT 01/02/2017 SABRINA ROSSI DO Ot Z79.84 FLOW NURSE (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 OF ORAL HYPOGLYC 01/02/2017 SABRINA ROSSI DO Ot Z79.899 OTHER FLOW NURSE (CURRENT) DRUG THERAPY 01/02/2017 SABRINA ROSSI DO Ot Z80.0 FAMILY HISTORY OF MALIGNANT NEOPLASM OF 01/02/2017 SABRINA ROSSI DO Ot Z95.5 PRESENCE OF CORONARY ANGIOPLASTY IMPLANT 01/06/2017 SABRINA ROSSI DO Ot D50.9 IRON DEFICIENCY ANEMIA, UNSPECIFIED 01/06/2017 SABRIAN ROSSI DO Ot E03.9 HYPOTHYROIDISM, UNSPECIFIED 01/06/2017 SABRINA ROSSI DO Ot 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 01/06/2017 SABRINA ROSSI DO Ot E78.5 HYPERLIPIDEMIA, UNSPECIFIED 01/06/2017 SABRINA ROSSI DO Ot I12.9 HYPERTENSIVE CHRONIC KIDNEY DISEASE W ST 01/06/2017 SABRINA ROSSI DO Ot I25.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[place] CORONARY 01/06/2017 SABRINA ROSSI DO Ot I47.1 [...] ABNORMALITIES 01/06/2017 SABRINA ROSSI DO Ot Z79.01 FLOW NURSE (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 OF ANTICOAGULANT 01/06/2017 SABRINA ROSSI DO Ot Z79.84 RETIREMENT (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 OF ORAL HYPOGLYC 01/06/2017 SABRINA ROSSI DO Ot Z79.899 OTHER FLOW NURSE (CURRENT) DRUG THERAPY 01/06/2017 SABRINA ROSSI DO Ot Z80.0 FAMILY HISTORY OF MALIGNANT NEOPLASM OF 01/06/2017 SABRINA ROSSI DO Ot Z95.5 PRESENCE OF CORONARY ANGIOPLASTY IMPLANT 01/29/2017 Ot 250.00 DIAB NALLELY WO COMPL, TYPE II OR UNSPEC TY 01/29/2017 CHICHI RIVAS ANALYTICAL STRATEGIST Ot 574.20 CHOLELITHIASIS NOS 01/29/2017 CHICHI RIVAS ANALYTICAL STRATEGIST Ot 789.1 HEPATOMEGALY 01/29/2017 LINDA GONZALESC, ALI FACP CCDS Ot 401.9 HYPERTENSION NOS 01/29/2017 LINDA KHOURY FACC, ALI FACP CCDS Ot 414.00 CORON ATHEROSCLER NOS TYPE VESSEL, NATIV 01/29/2017 LINDA KHOURY FACC, ALI FACP CCDS Ot 427.31 ATRIAL FIBRILLATION 01/29/2017 TY KHOURY, TNOIE Diaz Ot V72.84 EXAM PRE-OPERATIVE NOS 01/29/2017 [...] I10 ESSENTIAL (PRIMARY) HYPERTENSION 01/29/2017 OVI KHOURY, TORIGERONIMOU Ot E03.9 HYPOTHYROIDISM, UNSPECIFIED 01/29/2017 OVI KHOURY, TORI-FRANKIE Ot E11.9 TYPE 2 DIABETES MELLITUS WITHOUT COMPLIC 01/29/2017 OVI KHOURY, TORI-FRANKIE Ot E78.5 HYPERLIPIDEMIA, UNSPECIFIED 01/29/2017 OVI KHOURY, TORI-FRANKIE Ot I10 ESSENTIAL (PRIMARY) HYPERTENSION 01/29/2017 SHIREEN AGARWAL Ot D64.9 ANEMIA, UNSPECIFIED 01/29/2017 SHIREEN AGARWAL Ot E03.9 HYPOTHYROIDISM, UNSPECIFIED 01/29/2017 SHIREEN AGARWAL N Ot 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 01/29/2017 SHIREEN AGARWAL Ot I12.9 HYPERTENSIVE CHRONIC KIDNEY DISEASE W ST 01/29/2017 SHIREEN AGARWAL N Ot I25.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[place] CORONARY 01/29/2017 SHIREEN AGARWAL Ot I48.91 UNSPECIFIED ATRIAL FIBRILLATION 01/29/2017 SHIREEN AGARWAL N Ot N18.3 CHRONIC KIDNEY DISEASE, STAGE 3 (MODERAT 01/29/2017 SHIREEN AGARWAL N Ot Z79.899 OTHER FLOW NURSE (CURRENT) DRUG THERAPY 01/29/2017 KIERAN KHOURY, BERNY R Ot I25.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[place] CORONARY 01/29/2017 KIERAN KHOURY, BERNY R Ot I25.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[place] CORONARY 01/29/2017 SHIREEN AGARWAL Ot D50.9 IRON DEFICIENCY ANEMIA, UNSPECIFIED 01/29/2017 SHIREEN AGARWAL N Ot E03.9 HYPOTHYROIDISM, UNSPECIFIED 01/29/2017 SHIREEN AGARWAL Ot 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 01/29/2017 SHIREEN AGARWAL Ot I12.9 HYPERTENSIVE CHRONIC KIDNEY DISEASE W ST 01/29/2017 SHIREEN AGARWAL Ot I25.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[place] CORONARY 01/29/2017 SHIREEN AGARWAL Ot I48.91 UNSPECIFIED ATRIAL FIBRILLATION 01/29/2017 SHIREEN AGARWAL Ot N18.3 CHRONIC KIDNEY DISEASE, STAGE 3 (MODERAT 01/29/2017 SHIREEN AGARWAL Ot Z79.899 OTHER RETIREMENT (CURRENT) DRUG THERAPY 01/29/2017 KIERAN KHOURY, Wei BRANDON Ot I47.1 SUPRAVENTRICULAR TACHYCARDIA 01/29/2017 Wei ALCARAZ MD Ot I48.91 UNSPECIFIED ATRIAL FIBRILLATION 01/29/2017 SABRINA ROSSI DO Ot D50.9 IRON DEFICIENCY ANEMIA, UNSPECIFIED 01/29/2017 SABRINA ROSSI DO Ot R19.5 OTHER FECAL ABNORMALITIES 01/29/2017 SABRINA ROSSI DO Ot Z01.818 ENCOUNTER FOR OTHER PREPROCEDURAL EXAMIN 01/29/2017 SABRINA ROSSI DO Ot Z80.0 FAMILY HISTORY OF MALIGNANT NEOPLASM OF 01/29/2017 Ot 250.00 DIAB NALLELY WO COMPL, TYPE II OR UNSPEC TY 01/29/2017 CHICHI RIVAS ANALYTICAL STRATEGIST Ot 574.20 CHOLELITHIASIS NOS 01/29/2017 CHICHI RIVAS ANALYTICAL STRATEGIST Ot 789.1 HEPATOMEGALY 01/29/2017 LINDA GONZALESC, ALI [...] TYPE II OR UNSPEC TY 01/29/2017 LINDA GONZALESC, ALI FACP CCDS Ot 401.9 HYPERTENSION NOS 01/29/2017 LINDA GONZALESC, ALI FACP CCDS Ot 427.0 [place]OX ATRIAL TACHYCARDIA 01/29/2017 LINDA KHOURY FAC, ALI FACP CCDS Ot 785.1 PALPITATIONS 01/29/2017 Ot 244.9 HYPOTHYROIDISM NOS 01/29/2017 Ot 280.9 IRON DEFIC ANEMIA NOS 01/29/2017 Ot 585.3 CHRONIC KIDNEY DISEASE, STAGE III (MODER 01/29/2017 Ot V58.69 OTH MED,LT, CURRENT USE 01/29/2017 Ot 250.02 DIAB NALLELY WO COMPL, TYPE II OR UNSPEC TY 01/29/2017 HARVEY KHOURY, CLADUE S Ot 574.20 CHOLELITHIASIS NOS 01/29/2017 HARVEY [...] 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 01/29/2017 SHIREEN AGARWAL Ot I12.9 HYPERTENSIVE CHRONIC KIDNEY DISEASE W ST 01/29/2017 SHIREEN AGARWAL Ot I25.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[place] CORONARY 01/29/2017 SHIREEN AGARWAL Ot I48.91 UNSPECIFIED ATRIAL FIBRILLATION 01/29/2017 SHIREEN AGARWAL Ot N18.3 CHRONIC KIDNEY DISEASE, STAGE 3 (MODERAT 01/29/2017 SHIREEN AGARWAL N Ot Z79.899 OTHER RETIREMENT (CURRENT) DRUG THERAPY 01/29/2017 KIERAN KHOURY, BERNY R Ot I25.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[place] CORONARY 01/29/2017 KIERAN KHOURY, BERNY R Ot I25.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[place] CORONARY 01/29/2017 SHIREEN AGARWAL N Ot D50.9 IRON DEFICIENCY ANEMIA, UNSPECIFIED 01/29/2017 ANY BOBAN N Ot E03.9 HYPOTHYROIDISM, UNSPECIFIED 01/29/2017 ANY, BOBAN N Ot 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 01/29/2017 ANYJJ BALDWINAN N Ot I12.9 HYPERTENSIVE CHRONIC KIDNEY DISEASE W ST 01/29/2017 ANYSHIREEN N Ot I25.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[place] CORONARY 01/29/2017 ANYSHIREEN N Ot I48.91 UNSPECIFIED ATRIAL FIBRILLATION 01/29/2017 ANYSHIREEN N Ot N18.3 CHRONIC KIDNEY DISEASE, STAGE 3 (MODERAT 01/29/2017 ANY, BOBAN N Ot Z79.899 OTHER FLOW NURSE (CURRENT) DRUG THERAPY 01/29/2017 KIERAN KHOURY, Wei [...] TORRES MD Ot E66.9 OBESITY, UNSPECIFIED 01/31/2017 JAMES TORRES MD Ot E78.5 HYPERLIPIDEMIA, UNSPECIFIED 01/31/2017 JAMES TORRES MD Ot I11.0 HYPERTENSIVE HEART DISEASE WITH HEART FA 01/31/2017 JAMES TORRES MD Ot I21.4 NON-ST ELEVATION (NSTEMI) MYOCARDIAL INF 01/31/2017 JAMES TORRES MD Ot I25.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[place] CORONARY 01/31/2017 JAMES TORRES MD Ot I48.0 [...] ADULT 01/31/2017 JAMES TORRES MD Ot Z79.01 FLOW NURSE (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 OF ANTICOAGULANT 01/31/2017 JAMES TORRES MD Ot Z95.5 PRESENCE OF CORONARY ANGIOPLASTY IMPLANT 02/11/2017 SHIREEN AGARWAL Ot D50.9 IRON DEFICIENCY ANEMIA, UNSPECIFIED 02/11/2017 SHIREEN AGARWAL Ot E03.9 HYPOTHYROIDISM, UNSPECIFIED 02/11/2017 SHIREEN AGARWAL Ot 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 02/11/2017 SHIREEN AGARWAL Ot I12.9 HYPERTENSIVE CHRONIC KIDNEY DISEASE W ST 02/11/2017 SHIREEN AGARWAL Ot I25.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[place] CORONARY 02/11/2017 SHIREEN AGARWAL Ot I48.91 UNSPECIFIED ATRIAL FIBRILLATION 02/11/2017 SHIREEN AGARWAL Ot N18.3 CHRONIC KIDNEY DISEASE, STAGE 3 (MODERAT 02/11/2017 SHIREEN AGARWAL Ot Z79.899 OTHER RETIREMENT (CURRENT) DRUG THERAPY 02/23/2017 KIERAN KHOURY, Wei BRANDON Ot I47.1 SUPRAVENTRICULAR TACHYCARDIA 02/23/2017 KIERAN KHOURY, Wei ROMA Ot I48.91 UNSPECIFIED ATRIAL FIBRILLATION 02/23/2017 ROSSI DO SABRINA D Ot D64.9 ANEMIA, UNSPECIFIED 02/23/2017 ROSSI DO SABRINA D Ot Z01.818 ENCOUNTER FOR OTHER PREPROCEDURAL EXAMIN 03/03/2017 ROSSI DO SABRINA D Ot D64.9 ANEMIA, UNSPECIFIED 03/03/2017 ROSSI DO, SABRINA D Ot E03.9 HYPOTHYROIDISM, UNSPECIFIED 03/03/2017 ROSSI DO, SABRINA D Ot E11.9 TYPE 2 DIABETES MELLITUS WITHOUT COMPLIC 03/03/2017 ROSSI DO, SABRINA D Ot K59.09 OTHER CONSTIPATION 03/09/2017 ANY, BOBAN N Ot D50.9 IRON DEFICIENCY ANEMIA, UNSPECIFIED 03/09/2017 ANY BOBAN N Ot E03.9 HYPOTHYROIDISM, UNSPECIFIED 03/09/2017 ANY, BOBAN N Ot 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 03/09/2017 ANY BOBAN N Ot I12.9 HYPERTENSIVE CHRONIC KIDNEY DISEASE W ST 03/09/2017 ANY, BOBAN N Ot I25.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[place] CORONARY 03/09/2017 ANY, BOBAN N Ot I48.91 UNSPECIFIED ATRIAL FIBRILLATION 03/09/2017 ANY, BOBAN N Ot N18.3 CHRONIC KIDNEY DISEASE, STAGE 3 (MODERAT 03/09/2017 ANY BOBAN N Ot Z79.899 OTHER FLOW NURSE (CURRENT) DRUG THERAPY 03/10/2017 ANY BOBAN N Ot D50.9 IRON DEFICIENCY ANEMIA, UNSPECIFIED 03/10/2017 ANY, BOBAN N Ot E03.9 HYPOTHYROIDISM, UNSPECIFIED 03/10/2017 ANY, BOBAN N Ot 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 03/10/2017 ANY, BOBAN N Ot I12.9 HYPERTENSIVE CHRONIC KIDNEY DISEASE W ST 03/10/2017 ANY, BOBAN N Ot I25.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[place] CORONARY 03/10/2017 ANY BOBAN N Ot I48.91 UNSPECIFIED ATRIAL FIBRILLATION 03/10/2017 ANY BOBAN N Ot N18.3 CHRONIC KIDNEY DISEASE, STAGE 3 (MODERAT 03/10/2017 ANY, BOBAN N Ot Z79.899 OTHER RETIREMENT (CURRENT) DRUG THERAPY 03/13/2017 SABRINA ROSSI DO Ot D64.9 ANEMIA, UNSPECIFIED 03/13/2017 SABRINA ROSSI DO Ot E03.9 HYPOTHYROIDISM, UNSPECIFIED 03/13/2017 SABRINA ROSSI DO Ot E11.9 TYPE 2 DIABETES MELLITUS WITHOUT COMPLIC 03/13/2017 SABRINA ROSSI DO Ot K59.09 OTHER CONSTIPATION 03/19/2017 ANYSHIREEN N Ot D64.9 ANEMIA, UNSPECIFIED 03/20/2017 ANYSHIREEN N Ot D50.9 IRON DEFICIENCY ANEMIA, UNSPECIFIED 03/20/2017 ANYSHIREEN N Ot E03.9 HYPOTHYROIDISM, UNSPECIFIED 03/20/2017 ANYSHIREEN N Ot 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 03/20/2017 ANYSHIREEN Ot I12.9 HYPERTENSIVE CHRONIC KIDNEY DISEASE W ST 03/20/2017 SHIREEN AGARWAL Ot I25.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[place] CORONARY 03/20/2017 ANYSHIREEN N Ot I48.91 UNSPECIFIED ATRIAL FIBRILLATION 03/20/2017 ANYSHIREEN N Ot N18.3 CHRONIC KIDNEY DISEASE, STAGE 3 (MODERAT 03/20/2017 ANYSHIREEN Ot Z79.899 OTHER RETIREMENT (CURRENT) DRUG THERAPY 04/01/2017 ANY SHIREEN N [...] MD Ot I10 ESSENTIAL (PRIMARY) HYPERTENSION 06/10/2017 ROSSISABRINA ALCOCER DO Ot D64.9 ANEMIA, UNSPECIFIED 06/10/2017 ROSSI SABRINA WOOD Ot K76.89 OTHER SPECIFIED DISEASES OF LIVER 06/10/2017 ROSSI SABRINA WOOD Ot K82.1 HYDROPS OF GALLBLADDER 06/16/2017 SHIREEN AGARWAL Solange Ot D64.9 ANEMIA, UNSPECIFIED 06/16/2017 Ot 250.00 DIAB NALLELY WO COMPL, TYPE II OR UNSPEC TY 06/16/2017 CHICHI RIVAS ANALYTICAL STRATEGIST Ot 574.20 CHOLELITHIASIS NOS 06/16/2017 CHICHI RIVAS ANALYTICAL STRATEGIST Ot 789.1 HEPATOMEGALY 06/16/2017 LINDA KHOURY FACC, ALI FACP CCDS Ot 401.9 HYPERTENSION NOS 06/16/2017 LINDA KHOURY FACC, ALI FACP CCDS Ot 414.00 CORON ATHEROSCLER NOS TYPE VESSEL, NATIV 06/16/2017 LINDA GONZALESC, ALI FACP CCDS Ot 427.31 ATRIAL FIBRILLATION 06/16/2017 TY KHOURY, TONIE Diaz Ot V72.84 EXAM PRE-OPERATIVE NOS 06/16/2017 LINDA KHOURY FACC, ALI FACP [...] 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 06/16/2017 SHIREEN AGARWAL Ot I12.9 HYPERTENSIVE CHRONIC KIDNEY DISEASE W ST 06/16/2017 SHIREEN AGARWAL Ot I25.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[place] CORONARY 06/16/2017 SHIREEN AGARWAL Ot I48.91 UNSPECIFIED ATRIAL FIBRILLATION 06/16/2017 SHIREEN AGARWAL Ot N18.3 CHRONIC KIDNEY DISEASE, STAGE 3 (MODERAT 06/16/2017 SHIREEN AGARWAL Ot Z79.899 OTHER RETIREMENT (CURRENT) DRUG THERAPY 06/16/2017 KIERAN KHOURY, BERNY Champion Ot I25.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[place] CORONARY 06/16/2017 KIERAN KHOURY, BERNY R Ot I25.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[place] CORONARY 06/16/2017 KIERAN KHOURY, M ROMA Ot [...] E03.9 HYPOTHYROIDISM, UNSPECIFIED 06/16/2017 SABRINA ROSSI DO D Ot E11.9 TYPE 2 DIABETES MELLITUS WITHOUT COMPLIC 06/16/2017 SABRINA ROSSI DO Ot K59.09 OTHER CONSTIPATION 06/16/2017 SABRINA ROSSI DO D Ot K29.80 DUODENITIS WITHOUT BLEEDING 06/16/2017 SHIREEN AGARWAL Ot D64.9 ANEMIA, UNSPECIFIED 06/16/2017 BRIAN KHOURY, JAMES Champion Ot E03.9 HYPOTHYROIDISM, UNSPECIFIED 06/16/2017 BRIAN KHOURY, JAMES Champion Ot E11.9 TYPE 2 DIABETES MELLITUS WITHOUT COMPLIC 06/16/2017 BRIAN KHOURY, JAMES R Ot I10 ESSENTIAL (PRIMARY) HYPERTENSION 06/16/2017 SABRINA ROSSI DO Ot D64.9 ANEMIA, UNSPECIFIED 06/16/2017 SABRINA ROSSI DO D Ot K76.89 OTHER SPECIFIED DISEASES OF LIVER 06/16/2017 SABRINA ROSSI DO D Ot K82.1 HYDROPS OF GALLBLADDER 06/22/2017 SHIREEN AGARWAL Ot D50.9 IRON DEFICIENCY ANEMIA, UNSPECIFIED 06/22/2017 SHIREEN AGARWAL Ot E03.9 HYPOTHYROIDISM, UNSPECIFIED 06/22/2017 SHIREEN AGARWAL Ot 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 06/22/2017 SHIREEN AGARWAL Ot I12.9 HYPERTENSIVE CHRONIC KIDNEY DISEASE W ST 06/22/2017 SHIREEN AGARWAL Ot I25.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[place] CORONARY 06/22/2017 ANYJJ BALDWINAN N Ot I48.91 UNSPECIFIED ATRIAL FIBRILLATION 06/22/2017 SHIREEN AGARWAL N Ot N18.3 CHRONIC KIDNEY DISEASE, STAGE 3 (MODERAT 06/22/2017 ANYJJ BALDWINAN N Ot Z79.899 OTHER RETIREMENT (CURRENT) DRUG THERAPY 07/07/2017 ANY BOBAN N Ot D50.9 IRON DEFICIENCY ANEMIA, UNSPECIFIED 07/07/2017 ANY, BOBAN N Ot E03.9 HYPOTHYROIDISM, UNSPECIFIED 07/07/2017 ANY, BOBAN N Ot 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 07/07/2017 ANY, BOBAN N Ot I12.9 HYPERTENSIVE CHRONIC KIDNEY DISEASE W ST 07/07/2017 ANY, BOBAN N Ot I25.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[place] CORONARY 07/07/2017 ANY BOBAN N Ot I48.91 UNSPECIFIED ATRIAL FIBRILLATION 07/07/2017 ANY BOBAN N Ot N18.3 CHRONIC KIDNEY DISEASE, STAGE 3 (MODERAT 07/07/2017 ANY, BOBAN N Ot Z79.899 OTHER RETIREMENT (CURRENT) DRUG THERAPY 07/07/2017 MELIZA KHOURY, BRANDEN Ot D50.9 IRON DEFICIENCY ANEMIA, UNSPECIFIED 07/07/2017 BRANDEN HAIDER MD Ot E03.9 HYPOTHYROIDISM, UNSPECIFIED 07/07/2017 MELIZA KHOURY, BRANDEN Ot 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 07/07/2017 MELIZA KHOURY, BRANDEN Ot I12.9 HYPERTENSIVE CHRONIC KIDNEY DISEASE W ST 07/07/2017 MELIZA KHOURY, BRANDEN Ot I25.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[place] CORONARY 07/07/2017 MELIZA KHOURY, BRANDEN Ot I48.91 UNSPECIFIED ATRIAL FIBRILLATION 07/07/2017 MELIZA KHOURY, BRANDEN Ot N18.3 CHRONIC KIDNEY DISEASE, STAGE 3 (MODERAT 07/07/2017 MELIZA KHOURY, BRANDEN Ot Z79.899 OTHER FLOW NURSE (CURRENT) DRUG THERAPY 07/10/2017 RACHELE JEFFERSON ANALYTICAL STRATEGIST Ot D64.89 OTHER SPECIFIED ANEMIAS 07/10/2017 RACHELE JEFFERSON ANALYTICAL STRATEGIST Ot R06.02 SHORTNESS OF BREATH 07/17/2017 CARMINE BORRERO DO Ot D12.0 BENIGN NEOPLASM OF CECUM 07/17/2017 GISSELL WOOD CARMINE B Ot D12.2 BENIGN NEOPLASM OF ASCENDING COLON 07/17/2017 DIVYA BORRERO DOIC B Ot D64.9 ANEMIA, UNSPECIFIED 07/17/2017 DIVYA BORRERO DOIC B Ot E11.4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5 POLYP OF COLON 07/17/2017 DIVYA BORRERO DOIC B Ot K64.8 OTHER HEMORRHOIDS 07/17/2017 DIVYA BORRERO DOIC B Ot 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 07/17/2017 DIVYA BORRERO DOIC B Ot Z68.42 BODY MASS INDEX (BMI) 45.0-49.9, ADULT 07/17/2017 DIVYA BORRERO DOIC B Ot Z79.899 OTHER RETIREMENT (CURRENT) DRUG THERAPY 07/24/2017 DIVYA BORRERO DOIC B Ot D12.0 BENIGN NEOPLASM OF CECUM 07/24/2017 DIVYA BORRERO DOIC B Ot D12.2 BENIGN NEOPLASM OF ASCENDING COLON 07/24/2017 DIVYA BORRERO DOIC B Ot D64.9 ANEMIA, UNSPECIFIED 07/24/2017 DIVYA BORRERO DOIC B Ot E11.4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 07/24/2017 LUIZARIANA DO CARMINE B Ot E66.01 MORBID (SEVERE) OBESITY DUE TO EXCESS CA 07/24/2017 GISSELL WOOD CARMINE B Ot I10 ESSENTIAL (PRIMARY) HYPERTENSION 07/24/2017 DIVYA BORRERO DOIC B Ot I48.91 UNSPECIFIED ATRIAL FIBRILLATION 07/24/2017 LUIZARIANA DO CARMINE B Ot K29.50 UNSPECIFIED CHRONIC GASTRITIS [...] DIVYA BORRERO DOIC B Ot Z79.899 OTHER RETIREMENT (CURRENT) DRUG THERAPY 07/24/2017 DIVYA BORRERO DOIC B Ot D12.0 BENIGN NEOPLASM OF CECUM 07/24/2017 DIVYA BORRERO DOIC B Ot D12.2 BENIGN NEOPLASM OF ASCENDING COLON 07/24/2017 DIVYA BORRERO DOIC B Ot D64.9 ANEMIA, UNSPECIFIED 07/24/2017 GISSELL WOOD CARMINE B Ot E11.43 TYPE 2 DIABETES [...] DELMAN DO, CARMINE B Ot Z79.899 OTHER FLOW NURSE (CURRENT) DRUG THERAPY 07/28/2017 BRANDEN HAIDER MD Ot D50.9 IRON DEFICIENCY ANEMIA, UNSPECIFIED 07/28/2017 BRANDEN HAIDER MD Ot E03.9 HYPOTHYROIDISM, UNSPECIFIED 07/28/2017 MELIZA KHOURY, BRANDEN Ot 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 07/28/2017 BRANDEN HAIDER MD Ot I12.9 HYPERTENSIVE CHRONIC KIDNEY DISEASE W ST 07/28/2017 BRANDEN HAIDER MD Ot I25.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[place] CORONARY 07/28/2017 BRANDEN HAIDER MD Ot I48.91 UNSPECIFIED ATRIAL FIBRILLATION 07/28/2017 BRANDEN HAIDER MD Ot N18.3 CHRONIC KIDNEY DISEASE, STAGE 3 (MODERAT 07/28/2017 MELIZA KHOURY, BRANDEN Ot Z79.899 OTHER RETIREMENT (CURRENT) DRUG THERAPY 07/29/2017 ANY, BOBAN N Ot D50.9 IRON DEFICIENCY ANEMIA, UNSPECIFIED 07/29/2017 ANY, BOBAN N Ot E03.9 HYPOTHYROIDISM, UNSPECIFIED 07/29/2017 ANY, BOBAN N Ot 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 07/29/2017 ANY, BOBAN N Ot I12.9 HYPERTENSIVE CHRONIC KIDNEY DISEASE W ST 07/29/2017 ANY, BOBAN N Ot I25.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[place] CORONARY 07/29/2017 ANY, BOBAN N Ot I48.91 UNSPECIFIED ATRIAL FIBRILLATION 07/29/2017 ANY, BOBAN N Ot N18.3 CHRONIC KIDNEY DISEASE, STAGE 3 (MODERAT 07/29/2017 ANY, BOBAN N Ot Z79.899 OTHER RETIREMENT (CURRENT) DRUG THERAPY 08/11/2017 GISSELL DO, CARMINE B Ot D12.0 BENIGN NEOPLASM OF CECUM 08/11/2017 GISSELL DO, CARMINE B Ot D12.2 BENIGN NEOPLASM OF ASCENDING COLON 08/11/2017 GISSELL WOOD CARMINE B Ot D64.9 ANEMIA, UNSPECIFIED 08/11/2017 GISSELL DO, CARMINE B Ot E11.4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 08/11/2017 GISSELL WOOD CARMINE B Ot E66.01 MORBID (SEVERE) OBESITY DUE TO EXCESS CA 08/11/2017 GISSELL WOOD CARMINE B Ot I10 ESSENTIAL [...] GISSELL WOOD CARMINE B Ot Z79.899 OTHER FLOW NURSE (CURRENT) DRUG THERAPY 09/02/2017 SHIREEN AGARWAL Ot D50.9 IRON DEFICIENCY ANEMIA, UNSPECIFIED 09/02/2017 SHIREEN AGARWAL Ot E03.9 HYPOTHYROIDISM, UNSPECIFIED 09/02/2017 SHIREEN AGARWAL Ot 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 09/02/2017 SHIREEN AGARWAL Ot I12.9 HYPERTENSIVE CHRONIC KIDNEY DISEASE W ST 09/02/2017 SHIREEN AGARWAL Ot I25.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[place] CORONARY 09/02/2017 SHIREEN AGARWAL Ot I48.91 UNSPECIFIED ATRIAL FIBRILLATION 09/02/2017 SHIREEN AGARWAL Ot N18.3 CHRONIC KIDNEY DISEASE, STAGE 3 (MODERAT 09/02/2017 SHIREEN AGARWAL N Ot Z79.899 OTHER RETIREMENT (CURRENT) DRUG THERAPY 09/02/2017 Ot 250.00 DIAB NALLELY WO COMPL, TYPE II OR UNSPEC TY 09/02/2017 CHICHI RIVAS ANALYTICAL STRATEGIST Ot 574.20 CHOLELITHIASIS NOS 09/02/2017 CHICHI RIVAS ANALYTICAL STRATEGIST Ot 789.1 HEPATOMEGALY 09/02/2017 LINDA KHOURY FACC, ARNIE GONZALESP CCDS Ot 401.9 HYPERTENSION NOS 09/02/2017 LINDA KHOURY FACC, ARNIE FACP CCDS Ot 414.00 CORON ATHEROSCLER NOS [...] Ot E03.9 HYPOTHYROIDISM, UNSPECIFIED 09/02/2017 SHIREEN AGARWAL Ot 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 09/02/2017 SHIREEN AGARWAL Solange Ot I12.9 HYPERTENSIVE CHRONIC KIDNEY DISEASE W ST 09/02/2017 SHIREEN AGARWAL Solange Ot I25.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[place] CORONARY 09/02/2017 SHIREEN AGARWAL Solange Ot I48.91 UNSPECIFIED ATRIAL FIBRILLATION 09/02/2017 SHIREEN AGARWAL Solange Ot N18.3 CHRONIC KIDNEY DISEASE, STAGE 3 (MODERAT 09/02/2017 SHIREEN AGARWAL Solange Ot Z79.899 OTHER RETIREMENT (CURRENT) DRUG THERAPY 09/02/2017 KIERAN KHOURY, BERNY Champion Ot I25.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[place] CORONARY 09/02/2017 BERNY ALCARAZ MD Ot I25.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[place] CORONARY 09/02/2017 KIERAN KHOURY, Wei BRANDON Ot [...] 2 DIABETES MELLITUS WITHOUT COMPLIC 09/02/2017 SABRINA ROSSI DO Ot K59.09 OTHER CONSTIPATION 09/02/2017 SABRINA [...] DISEASES OF LIVER 09/02/2017 SABRINA ROSSI DO D Ot K82.1 HYDROPS OF GALLBLADDER 09/02/2017 RACHELE JEFFERSON ANALYTICAL STRATEGIST Ot D64.89 OTHER SPECIFIED ANEMIAS 09/02/2017 RACHELE JEFFERSON ANALYTICAL STRATEGIST Ot R06.02 SHORTNESS OF BREATH 09/02/2017 ANYJJAN N Ot D50.9 IRON DEFICIENCY ANEMIA, UNSPECIFIED 09/02/2017 ANY, BOBAN N Ot E03.9 HYPOTHYROIDISM, UNSPECIFIED 09/02/2017 ANY BOBAN N Ot 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 09/02/2017 ANY BOBAN N Ot I12.9 HYPERTENSIVE CHRONIC KIDNEY DISEASE W ST 09/02/2017 ANY BOBAN N Ot I25.10 ATHSCL HEART DISEASE OF [place] CORONARY 09/02/2017 ANYJJAN N Ot I48.91 UNSPECIFIED ATRIAL FIBRILLATION 09/02/2017 ANY BOBAN N Ot N18.3 CHRONIC KIDNEY DISEASE, STAGE 3 (MODERAT 09/02/2017 ANY BOBAN N Ot Z79.899 OTHER RETIREMENT (CURRENT) DRUG THERAPY 09/13/2017 JAMES TORRES MD Ot D50.9 IRON DEFICIENCY ANEMIA, UNSPECIFIED 09/13/2017 JAMES TORRES MD Ot E03.9 HYPOTHYROIDISM, UNSPECIFIED 09/13/2017 JAMES TORRES MD Ot E11.9 TYPE 2 DIABETES MELLITUS WITHOUT COMPLIC 09/13/2017 JAMES TORRES MD Ot E78.5 HYPERLIPIDEMIA, UNSPECIFIED 09/13/2017 JAMES TORRES MD Ot I10 ESSENTIAL (PRIMARY) HYPERTENSION 09/13/2017 JAMES TORRES MD Ot I25.10 ATHSCL HEART DISEASE OF [place] CORONARY 09/13/2017 JAMES TORRES MD Ot I48.91 UNSPECIFIED ATRIAL FIBRILLATION 09/13/2017 JAMES TORRES MD Ot L40.9 PSORIASIS, UNSPECIFIED 09/13/2017 JAMES TORRES MD Ot R07.89 OTHER CHEST PAIN 09/13/2017 JAMES TORRES MD Ot R51 HEADACHE 09/13/2017 JAMES TORRES MD Ot R60.0 LOCALIZED EDEMA 09/13/2017 JAMES TORRES MD Ot Z79.899 OTHER FLOW NURSE (CURRENT) DRUG THERAPY 09/13/2017 JAMES TORRES MD Ot Z87.8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 09/13/2017 JAMES TORRES MD Ot Z88.8 ALLERGY STATUS TO OTH DRUG/MEDS/BIOL SUB 09/13/2017 JAMES TORRES MD, Ot Z95.5 PRESENCE OF CORONARY ANGIOPLASTY IMPLANT 09/13/2017 JAMES TORRES MD Ot D50.9 IRON DEFICIENCY ANEMIA, UNSPECIFIED 09/13/2017 JAMES TORRES MD Ot E03.9 HYPOTHYROIDISM, UNSPECIFIED 09/13/2017 JAMES TORRES MD Ot E11.9 TYPE 2 DIABETES MELLITUS WITHOUT COMPLIC 09/13/2017 JAMES TORRES MD Ot E78.5 HYPERLIPIDEMIA, UNSPECIFIED 09/13/2017 JAMES TORRES MD Ot I10 ESSENTIAL (PRIMARY) HYPERTENSION 09/13/2017 JAMES TORRES MD Ot I25.10 ATHSCL HEART DISEASE OF [place] CORONARY 09/13/2017 JAMES TORRES MD Ot I48.91 UNSPECIFIED ATRIAL FIBRILLATION 09/13/2017 JAMES TORRES MD Ot L40.9 PSORIASIS, UNSPECIFIED 09/13/2017 JAMES TORRES MD Ot R07.89 OTHER CHEST PAIN 09/13/2017 JAMES TORRES MD Ot R51 HEADACHE 09/13/2017 JAMES TORRES MD Ot R60.0 LOCALIZED EDEMA 09/13/2017 JAMES TORRES MD Ot Z79.899 OTHER FLOW NURSE (CURRENT) DRUG THERAPY 09/13/2017 JAMES TORRES MD Ot Z87.8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 09/13/2017 JAMES TORRES MD Ot Z88.8 ALLERGY STATUS TO OTH DRUG/MEDS/BIOL SUB 09/13/2017 JAMES TORRES MD Ot Z95.5 PRESENCE OF CORONARY ANGIOPLASTY IMPLANT Procedures Code Description Performed By Performed On [id number] MEASURE OF CARDIAC SAMPL PRESSURE, L H 01/30/2017 [id number] FLUOROSCOPY OF MULT COR ART USING L OSM 01/30/2017 [id number] FLUOROSCOPY OF LEFT HEART USING LOW OSMO [...] ABO+Rh group AP NRG Transfusion band number [id number] NRG Blood group antibody screen POSITIVE NRG Blood group antibodies identified - 01/29/17 13:20 Blood group antibodies identified [facility] NR Capillary blood glucose measurement by glucometer (mass/volume) [...] LEUKO REDUCED AS1 PRSMD TRFSD 06/12/17 0855 NRG [id number] - 06/10/17 11:45 [id number] SPECIMEN AVAILABLE [facility] Blood type T Indirect antibody screen panel - 06/10/17 11:45 ABO+Rh group AP NR Transfusion band number [id number] NR Blood group antibody screen POSITIVE NR Blood group antibodies identified - 06/10/17 11:45 Blood group antibodies identified [facility] Comprehensive metabolic panel - 06/10/17 11:45 [...] plasma ferritin measurement (mass/volume) 45.0 % 15.0-150.0 [id number] - 07/01/17 12:54 [id number] SPECIMEN AVAILABLE [facility] Complete blood count (CBC) with automated white blood cell (WBC) differential - 09/12/17 19:55 Blood leukocytes automated count (number/volume) 7.0 10*3/uL 4.3-11.0 Blood erythrocytes automated count (number/volume) 2.67 10*6/uL 4.35-5.85 Venous blood hemoglobin measurement (mass/volume) 8.1 g/dL 11.5-16.0 Blood hematocrit (volume fraction) 26 % 35-52 Automated erythrocyte mean corpuscular volume 97 [foz_us] 80-99 Automated erythrocyte mean corpuscular hemoglobin (mass per erythrocyte) 30 pg 25-34 Automated erythrocyte mean corpuscular hemoglobin concentration measurement ( mass/volume) 31 g/dL 32-36 Automated erythrocyte distribution width ratio 16.1 % 10.0-14.5 Automated blood platelet count (count/volume) 159 10*3/uL 130-400 Automated blood platelet mean volume measurement 10.0 [[facility]_us] 7.4-10.4 Automated blood neutrophils/100 leukocytes 69 % 42-75 Automated blood lymphocytes/100 leukocytes 18 % 12-44 Blood monocytes/100 leukocytes 8 % 0-12 Automated blood eosinophils/100 leukocytes 5 % 0-10 Automated blood basophils/100 leukocytes 0 % 0-10 Blood neutrophils automated count (number/volume) 4.8 10*3 1.8-7.8 Blood lymphocytes automated count (number/volume) 1.3 10*3 1.0-4.0 Blood monocytes automated count (number/volume) 0.5 10*3 0.0-1.0 Automated eosinophil count 0.4 10*3/uL 0.0-0.3 Automated blood basophil count (count/volume) 0.0 10*3/uL 0.0-0.1 PT panel in platelet poor plasma by coagulation assay - 09/12/17 19:55 Prothrombin time (PT) in platelet poor plasma by coagulation assay 14.0 s 12.2-14.7 INR in platelet poor plasma or blood by coagulation assay 1.1 0.8-1.4 Activated partial thromboplastin time (aPTT) in platelet poor plasma bycoagulation assay - 09/12/17 19:55 Activated partial thromboplastin time (aPTT) in platelet poor plasma bycoagulation assay 29 s 24-35 Comprehensive metabolic panel - 09/12/17 19:55 Serum or plasma sodium measurement (moles/volume) 140 mmol/L 135-145 Serum or plasma potassium measurement (moles/volume) 4.0 mmol/L 3.6-5.0 Serum or plasma chloride measurement (moles/volume) 103 mmol/L 98-107 Carbon dioxide 23 mmol/L 21-32 Serum or plasma anion gap determination (moles/volume) 14 mmol/L 5-14 Serum or plasma urea nitrogen measurement (mass/volume) 19 mg/dL 7-18 Serum or plasma creatinine measurement (mass/volume) 1.50 mg/dL 0.60-1.30 Serum or plasma urea nitrogen/creatinine mass ratio 13 NRG Serum or plasma creatinine measurement with calculation of estimated glomerular filtration rate 35 NRG Serum or plasma glucose measurement (mass/volume) 176 mg/dL 70-105 Serum or plasma calcium measurement (mass/volume) 9.6 mg/dL 8.5-10.1 Serum or plasma total bilirubin measurement (mass/volume) 0.6 mg/dL 0.1-1.0 Serum or plasma alkaline phosphatase measurement (enzymatic activity/volume) 65 U/L 40-136 Serum or plasma aspartate aminotransferase measurement (enzymatic activity/ volume) 51 U/L 5-34 Serum or plasma alanine aminotransferase measurement (enzymatic activity/volume ) 24 U/L 0-55 Serum or plasma protein measurement (mass/volume) 7.6 g/dL 6.4-8.2 Serum or plasma albumin measurement (mass/volume) 3.9 g/dL 3.2-4.5 Magnesium - 09/12/17 19:55 Magnesium 1.4 mg/dL 1.8-2.4 Serum or plasma troponin i.cardiac measurement (mass/volume) - 09/12/17 19:55 Serum or plasma troponin i.cardiac measurement (mass/volume) < ng/ mL <0.30 Myoglobin, serum - 09/12/17 19:55 Myoglobin, serum 52.6 ng/mL 10.0-92.0 Serum or plasma amylase measurement (enzymatic activity/volume) - 09/12/17 19: 55 Serum or plasma amylase measurement (enzymatic activity/volume) 59 U /L 25-125 Lipase - 09/12/17 19:55 Lipase 55 U/L 8-78 Complete blood count (CBC) with automated white blood cell (WBC) differential - 09/13/17 02:05 Blood leukocytes automated count (number/volume) 7.2 10*3/uL 4.3-11.0 Blood erythrocytes automated count (number/volume) 2.59 10*6/uL 4.35-5.85 Venous blood hemoglobin measurement (mass/volume) 8.0 g/dL 11.5-16.0 Blood hematocrit (volume fraction) 25 % 35-52 Automated erythrocyte mean corpuscular volume 98 [foz_us] 80-99 Automated erythrocyte mean corpuscular hemoglobin (mass per erythrocyte) 31 pg 25-34 Automated erythrocyte mean corpuscular hemoglobin concentration measurement ( mass/volume) 31 g/dL 32-36 Automated erythrocyte distribution width ratio 16.1 % 10.0-14.5 Automated blood platelet count (count/volume) 167 10*3/uL 130-400 Automated blood platelet mean volume measurement 9.6 [foz_us] 7.4-10.4 Automated blood neutrophils/100 leukocytes 68 % 42-75 Automated blood lymphocytes/100 leukocytes 20 % 12-44 Blood monocytes/100 leukocytes 7 % 0-12 Automated blood eosinophils/100 leukocytes 5 % 0-10 Automated blood basophils/100 leukocytes 0 % 0-10 Blood neutrophils automated count (number/volume) 5.0 10*3 1.8-7.8 Blood lymphocytes automated count (number/volume) 1.4 10*3 1.0-4.0 Blood monocytes automated count (number/volume) 0.5 10*3 0.0-1.0 Automated eosinophil count 0.3 10*3/uL 0.0-0.3 Automated blood basophil count (count/volume) 0.0 10*3/uL 0.0-0.1 Comprehensive metabolic panel - 09/13/17 02:05 Serum or plasma sodium measurement (moles/volume) 141 mmol/L 135-145 Serum or plasma potassium measurement (moles/volume) 4.2 mmol/L 3.6-5.0 Serum or plasma chloride measurement (moles/volume) 103 mmol/L 98-107 Carbon dioxide 25 mmol/L 21-32 Serum or plasma anion gap determination (moles/volume) 13 mmol/L 5-14 Serum or plasma urea nitrogen measurement (mass/volume) 19 mg/dL 7-18 Serum or plasma creatinine measurement (mass/volume) 1.40 mg/dL 0.60-1.30 Serum or plasma urea nitrogen/creatinine mass ratio 14 NRG Serum or plasma creatinine measurement with calculation of estimated glomerular filtration rate 38 NRG Serum or plasma glucose measurement (mass/volume) 174 mg/dL 70-105 Serum or plasma calcium measurement (mass/volume) 9.3 mg/dL 8.5-10.1 Serum or plasma total bilirubin measurement (mass/volume) 0.5 mg/dL 0.1-1.0 Serum or plasma alkaline phosphatase measurement (enzymatic activity/volume) 64 U/L 40-136 Serum or plasma aspartate aminotransferase measurement (enzymatic activity/ volume) 54 U/L 5-34 Serum or plasma alanine aminotransferase measurement (enzymatic activity/volume ) 24 U/L 0-55 Serum or plasma protein measurement (mass/volume) 7.1 g/dL 6.4-8.2 Serum or plasma albumin measurement (mass/volume) 3.7 g/dL 3.2-4.5 Lipid 1996 panel - 09/13/17 02:05 Serum or plasma triglyceride measurement (mass/volume) 180 mg/dL <150 Serum or plasma cholesterol measurement (mass/volume) 200 mg/dL < 200 Serum or plasma cholesterol in HDL measurement (mass/volume) 41 mg/ dL 40-60 Cholesterol in LDL [mass/volume] in serum or plasma by direct assay 124 mg/dL 1-129 Serum or plasma cholesterol in VLDL measurement (mass/volume) 36 mg/ dL 5-40 Myoglobin, serum - 09/13/17 02:05 Myoglobin, serum 80.2 ng/mL 10.0-92.0 Serum or plasma troponin i.cardiac measurement (mass/volume) - 09/13/17 02:05 Serum or plasma troponin i.cardiac measurement (mass/volume) < ng/ mL <0.30 Encounters ACCT No. Visit Date/Time Discharge Status Pt. Type Provider Facility Loc./Unit Complaint [id number] 09/23/2017 11:57:00 09/23/2017 23:59:59 CLS Outpatient SHIREEN AGARWAL Via [facility] ONC [id number] 09/12/2017 22:15:00 09/13/2017 14:45:00 DIS Inpatient JAMES TORRES MD Via [facility] ICU CHEST PAIN [id number] 07/17/2017 14:09:00 07/28/2017 10:19:00 DIS Outpatient BRANDEN HAIDER MD Via [facility] ONC [id number] 07/17/2017 09:59:00 07/17/2017 13:30:00 DIS Outpatient CARMINE BORRERO DO Via [facility] ENDO GI BLEED [id number] 07/16/2017 15:00:00 07/16/2017 15:00:00 CAN Preadmit CARMINE BORRERO DO Via [facility] PREOP GI BLEED [id number] 07/01/2017 12:12:00 07/07/2017 09:04:00 DIS Outpatient SHIREEN AGARWAL N Via [facility] ONC [id number] 06/16/2017 10:05:00 06/16/2017 00:01:00 DIS Outpatient SHIREEN AGARWAL N Via [facility] ONC [id number] 06/14/2017 14:39:00 06/14/2017 23:59:59 CLS Outpatient RACHELE JEFFERSON Via [facility] LAB ANEMIA,SHORTNESS OF BREATH [id number] 05/21/2017 12:23:00 05/21/2017 23:59:59 CLS Outpatient SABRINA ROSSI DO Via [facility] RAD ABD PAIN, ANEMIA [id number] 05/12/2017 09:09:00 05/12/2017 23:59:59 CLS Outpatient JAMES TORRES MD Via [facility] LAB [id number] 04/07/2017 06:54:00 04/07/2017 23:59:59 CLS Outpatient SABRINA ROSSI DO Via [facility] ENDO INFLAMMATION [id number] 04/06/2017 11:00:00 04/06/2017 11:22:00 DIS Outpatient SABRINA ROSSI DO Via [facility] PREOP CAPSULE ENDO [id number] 03/04/2017 10:21:00 03/09/2017 00:01:00 DIS Outpatient ANY SHIREEN Narvaez Via [facility] ONC [id number] 03/02/2017 07:20:00 03/02/2017 23:59:59 CLS Outpatient SABRINA ROSSI DO Via [facility] ENDO ANEMIA [id number] 02/23/2017 05:40:00 02/23/2017 11:52:00 DIS Outpatient SABRINA ROSSI DO Via [facility] PREOP ANEMIA [id number] 01/29/2017 09:44:00 01/31/2017 15:52:00 DIS Inpatient JAMES TORRES MD Via [facility] ICU A-FIB WITH RVR [id number] 01/02/2017 06:29:00 01/02/2017 08:45:00 DIS Outpatient SABRINA ROSSI DO Via [facility] ENDO ANEMIA; OCCULT POSITIVE STOOLS [id number] 12/31/2016 11:10:00 01/01/2017 10:01:00 DIS Outpatient MACIEL WELCH APRN Via [facility] LAB ANEMIA [id number] 12/31/2016 12:53:00 12/31/2016 23:59:59 CLS Outpatient SABRINA ROSSI DO Via [facility] PREOP ANEMIA, OCCULT POSITIVE STOOL [id number] 12/17/2016 09:30:00 12/17/2016 23:59:59 CLS Preadmit Wei ALCARAZ MD Via [facility] CARD [facility],PSVT [id number] 10/10/2016 08:46:00 12/16/2016 00:01:00 DIS Outpatient Wei ALCARAZ MD Via [facility],PSVT [id number] 10/24/2016 08:37:00 11/03/2016 00:01:00 DIS Outpatient SHIREEN AGARWAL Via [facility] ONC [id number] 10/24/2016 08:41:00 10/24/2016 23:59:59 CLS Outpatient BERNY ALCARAZ MD Via [facility] LAB [id number] 09/15/2016 12:15:00 09/15/2016 23:59:59 CLS Outpatient BERNY ALCARAZ MD Via [facility] LAB [id number] 11/27/2015 15:28:00 01/07/2016 00:01:00 DIS Outpatient SHIREEN AGARWAL Via [facility] ONC [id number] 10/04/2015 13:17:00 10/04/2015 23:59:59 CLS Outpatient SHIREEN AGARWAL Via [facility] ONC [id number] 06/12/2015 11:11:00 06/13/2015 00:01:00 DIS Outpatient SHIREEN AGARWAL Via [facility] ONC [id number] 06/04/2015 15:34:00 06/04/2015 23:59:59 CLS Preadmit RACHELE JEFFERSON ANALYTICAL STRATEGIST Via [facility] ONC [id number] 03/29/2015 11:35:00 03/29/2015 23:59:59 CLS Outpatient WU DIOR MD Via [facility] LAB [id number] 03/15/2015 14:54:00 03/15/2015 23:59:59 CLS Outpatient WU DIOR MD Via [facility] LAB [id number] 11/23/2014 13:42:00 12/27/2014 00:01:00 DIS Outpatient SHIREEN AGARWAL Via [facility] ONC [id number] 10/05/2014 13:42:00 10/05/2014 23:59:59 CLS Outpatient CLAUDE GABRIEL MD Via [facility] LAB [id number] 10/05/2014 12:00:00 10/05/2014 23:59:59 CLS Outpatient CLAUDE GABRIEL MD Via [facility] RAD POST SPOT URINE [id number] 07/17/2014 14:31:00 07/17/2014 23:59:59 CLS Outpatient SHIREEN AGARWAL Via [facility] ONC [id number] 05/24/2014 13:33:00 05/24/2014 23:59:59 CLS Outpatient LINDA KHOURY FACCARNIE FACP CCDS Via [facility] LAB [id number] 04/03/2014 14:00:00 05/16/2014 00:01:00 DIS Outpatient SHIREEN AGARWAL Via [facility] ONC [id number] 03/24/2014 06:46:00 03/24/2014 09:55:00 DIS Outpatient TONIE CRAWFORD MD Via [facility] SDC SCREENING; ANEMIA [id number] 03/23/2014 07:22:00 03/23/2014 23:59:59 CLS Outpatient TONIE CRAWFORD MD Via [facility] PREOP SCREENING; ANEMIA [id number] 03/02/2014 09:01:00 03/02/2014 16:00:00 DIS Outpatient LINDA KHOURY FACC, ARNIE FACP CCDS [facility] CATH CP,CAD,HTN [id number] 02/07/2014 07:52:00 02/07/2014 23:59:59 CLS Outpatient ARNIE MCKEON MD, FACC FACP CCDS [facility] CARD AFIB [id number] 03/31/2013 08:55:00 03/31/2013 23:59:59 CLS Outpatient CHICHI RIVAS ANALYTICAL STRATEGIST Via [facility] RAD MID EPIGASTRIC PAIN [id number] 10/05/2014 11:59:00 Document Registration [id number] 10/05/2014 11:59:00 Document Registration [id number] 10/05/2014 11:59:00 Document Registration [id number] 08/24/2014 14:23:00 Document Registration [id number] 08/21/2014 07:51:00 Document Registration [id number] 04/03/2012 14:05:00 Document Registration [id number] 03/31/2016 15:06:00 03/31/2016 23:59:00 DIS Outpatient MALVIN DOMINGUEZ [id number] 03/15/2015 14:54:36 ACT Document Registration [id number] 09/16/2017 10:00:00 09/16/2017 23:59:59 CLS Outpatient JAMES TORRES [facility] [id number] 05/18/2017 16:00:00 Document Registration
[2017-10-03] MEDS ORDERED: morphine INJ 10 MG/ML 1ML (SYR OR VIAL) IVP STA (22:41)
--- NOTE | 2017-10-03 22:59 | ED Chest Pain ---
General Stated Complaint: CP History of Present Illness Date Seen by Provider: Oct 03, 2017 Time Seen by Provider: 22:10 Initial Comments 62-year-old female presents for substernal chest pain that radiates to her scapula and left arm that has been present since 1900 today. She has a long-standing history of anemia and GI bleeds, she is unable to take anticoagulants, however she did take aspirin today prior to presenting to the emergency department. She is followed by Dr. Alcaraz for her cardiac management. She is followed by Dr. Grace for her chronic anemia. She was hospitalized on 09/12/17 for chest discomfort, it was found to be noncardiac. Timing/Duration: 1-3 hours Severity/Quality: moderate Location: substernal, shoulder (left) Prior CP/Workup: cardiac cath, stress test ASA po WEIGHT REDUCTION SPECIALIST: Yes NTG SL WEIGHT REDUCTION SPECIALIST: Yes (2) Associated Symptoms: back pain, heartburn, nausea/vomiting, shortness of breath , syncope, weakness Allergies and Home Medications Allergies Coded Allergies: Bopjprj-Tbd-Jny Reductase Inhibitor (Verified Allergy, Intermediate, GI UPSET, N/V, 01/01/17) cefadroxil (Unverified Allergy, Mild, 01/01/17) diltiazem (Verified Allergy, Unknown, mouth burning and swelling, 02/23/17) Home Medications Cetirizine HCl 10 Mg Tablet, 10 MG PO DAILY, (Reported) Furosemide 20 Mg Tablet, 20 MG PO DAILY, (Reported) Glimepiride 2 Mg Tablet, 2 MG PO BID, (Reported) Gluc 2Kcl/Chondr/Caty Hy/Hy AC 1 Each Capsule, 1 TAB PO BID, (Reported) Levothyroxine Sodium 200 Mcg Tablet, 200 MCG PO DAILY, (Reported) Levothyroxine Sodium 25 Mcg Tablet, 25 MCG PO DAILY, (Reported) Metformin HCl 1,000 Mg Tablet, 1,000 MG PO BID, (Reported) Metoprolol Succinate 100 Mg Tab.er.24h, 100 MG PO HS, (Reported) Metoprolol Succinate 50 Mg Tab.er.24h, 50 MG PO AM, (Reported) Nitroglycerin 0.4 Mg Tab.subl, 0.4 MG PO UD PRN for CHEST PAIN, (Reported) Omeprazole 40 Mg Capsule.dr, 40 MG PO BID, (Reported) Ondansetron HCl 8 Mg Tablet, 8 MG PO Q8H PRN for NAUSEA/VOMITING-1ST LINE, ( Reported) Promethazine HCl 25 Mg Tablet, 25 MG PO Q6H PRN for NAUSEA/VOMITING-4TH LINE, ( Reported) Sucralfate 1 Gm Tablet, 1 GM PO QID, (Reported) Tramadol HCl 50 Mg Tablet, 50 MG PO TID PRN for PAIN-MODERATE, (Reported) Patient Home Medication List Home Medication List Reviewed: Yes Review of Systems Constitutional: no symptoms reported, see HPI Cardiovascular: See HPI, Chest Pain All Other Systems Reviewed Negative Unless Noted: Yes Past Wqtxxsw-Rutpgh-Tpwzoi Hx Past Med/Social Hx: Reviewed Nursing Past Med/Soc Hx Patient Social History Type Used: Cigarettes Former Smoker, Quit: Jun 15, 1984 Recent Hopitalizations: No Immunizations Up To Date Tetanus Booster (TDap): Unknown PED Vaccines UTD: Yes Date of Pneumonia Vaccine: Jun 23, 2016 Date of Influenza Vaccine: Mar 15, 2017 Seasonal Allergies Seasonal Allergies: Yes Past Medical History Surgeries: Yes (L ANKLE REPAIR, L KNEE SCOPE X2) Adenoidectomy, Tonsillectomy, Tubal Ligation Respiratory: No Currently Using CPAP: No Currently Using BIPAP: No Cardiac: Yes (CHF, STENT X1) Atrial Fibrillation, Coronary Artery Disease, Heart Attack, High Cholesterol, Hypertension Neurological: No Reproductive Disorders: No Female Reproductive Disorders: Denies Sexually Transmitted Disease: No HIV/AIDS: No Genitourinary: No Renal Failure Gastrointestinal: Yes (POSS GI BLEED, POLYP REMOVAL ) Gastroesophageal Reflux Musculoskeletal: Yes Degenerate Disk Disease, Arthritis Endocrine: Yes HEENT: No Loss of Vision: Denies Hearing Impairment: Denies Cancer: No Psychosocial: No Integumentary: Yes Psoriasis Blood Disorders: Yes (Iron deficiency, states not sure of her diagnosis) Adverse Reaction/Blood Tranf: Yes (Antibody JKA) Physical Exam Vital Signs Vital Signs - First Documented 10/03/17 22:44 Pulse Ox 95 O2 Delivery Nasal Cannula O2 Flow Rate 2.00 Capillary Refill : General Appearance: No Apparent Distress, Mild Distress HEENT: PERRL/EOMI, TMs Normal, Normal ENT Inspection, Pharynx Normal Neck: Full Range of Motion, Normal Inspection, Non Tender, Supple Respiratory: Chest Non Tender, Lungs Clear, Normal Breath Sounds Cardiovascular: Regular Rate, Rhythm, No Murmur, Normal Peripheral Pulses Gastrointestinal: Normal Bowel Sounds, Non Tender, Soft Extremity: Normal Capillary Refill, Normal Inspection, Normal Range of Motion, No Calf Tenderness Neurologic/Psychiatric: Alert, Oriented x3, No Motor/Sensory Deficits, Normal Mood/Affect Skin: Normal Color, Warm/Dry Progress/Results/Core Measures Lab Results Laboratory Tests Test 10/03/17 23:09 Range/Units White Blood Count 6.2 4.3-11.0 10^3/uL Red Blood Count 2.45 L 4.35-5.85 10^6/uL Hemoglobin 7.4 L 11.5-16.0 G/DL Hematocrit 24 L 35-52 % Mean Corpuscular Volume 100 H 80-99 FL Mean Corpuscular Hemoglobin 30 25-34 PG Mean Corpuscular Hemoglobin Concent 30 L 32-36 G/DL Red Cell Distribution Width 15.8 H 10.0-14.5 % Platelet Count 192 130-400 10^3/uL Mean Platelet Volume 9.5 7.4-10.4 FL Neutrophils (%) (Auto) 80 H 42-75 % Lymphocytes (%) (Auto) 11 L 12-44 % Monocytes (%) (Auto) 7 0-12 % Eosinophils (%) (Auto) 2 0-10 % Basophils (%) (Auto) 0 0-10 % Neutrophils # (Auto) 5.0 1.8-7.8 X 10^3 Lymphocytes # (Auto) 0.7 L 1.0-4.0 X 10^3 Monocytes # (Auto) 0.4 0.0-1.0 X 10^3 Eosinophils # (Auto) 0.1 0.0-0.3 10^3/uL Basophils # (Auto) 0.0 0.0-0.1 10^3/uL Prothrombin Time 14.1 12.2-14.7 SEC INR Comment 1.1 0.8-1.4 Activated Partial Thromboplast Time 29 24-35 SEC Sodium Level 138 135-145 MMOL/L Potassium Level 5.0 3.6-5.0 MMOL/L Chloride Level 104 98-107 MMOL/L Carbon Dioxide Level 21 21-32 MMOL/L Anion Gap 13 5-14 MMOL/L Blood Urea Nitrogen 28 H 7-18 MG/DL Creatinine 1.55 H 0.60-1.30 MG/DL Estimat Glomerular Filtration Rate 34 BUN/Creatinine Ratio 18 Glucose Level 448 *H 70-105 MG/DL Calcium Level 9.5 8.5-10.1 MG/DL Magnesium Level 2.3 1.8-2.4 MG/DL Total Bilirubin 0.5 0.1-1.0 MG/DL Aspartate Amino Transf (AST/SGOT) 30 5-34 U/L Alanine Aminotransferase (ALT/SGPT) 19 0-55 U/L Alkaline Phosphatase 68 40-136 U/L Myoglobin 39.0 10.0-92.0 NG/ML Troponin I < 0.30 <0.30 NG/ML Total Protein 7.5 6.4-8.2 GM/DL Albumin 3.9 3.2-4.5 GM/DL My Orders Orders - MAK CHAVARRIA Cbc With Automated Diff (10/03/17 22:13) Magnesium (10/03/17 22:13) Chest 1 View, Ap/Pa Only (10/03/17 22:13) Ekg Tracing (10/03/17 22:13) Cardiac Profile 1 (10/03/17 22:13) Comprehensive Metabolic Panel (10/03/17 22:13) Myoglobin Serum (10/03/17 22:13) Protime With Inr (10/03/17 22:13) Partial Thromboplastin Time (10/03/17 22:13) O2 (10/03/17 22:13) Monitor-Rhythm Ecg Trace Only (10/03/17 22:13) Saline Lock/Iv-Start (10/03/17 22:13) Morphine Injection (Morphine Injection (10/03/17 22:41) Metoprolol Succinate (Xl) Tab (Toprol Xl (10/03/17 23:30) Saline Lock/Iv-Start (10/03/17 23:37) Ns Iv 1000 Ml (Sodium Chloride 0.9%) (10/03/17 23:37) Insulin (Regular) Human (Humulin R (Per (10/03/17 23:49) Medications Given in ED Current Medications Medications Dose Ordered Sig/Roberth Route Start Time Stop Time Status Last Admin Dose Admin Metoprolol Succinate 100 mg ONCE ONCE PO 10/03/17 23:30 10/03/17 23:31 DC 10/03/17 23:28 100 MG Sodium Chloride 1,000 ml @ 175 mls/hr Q5H43M ONCE IV 10/03/17 23:37 10/04/17 05:19 10/03/17 23:47 175 MLS/HR Vital Signs/I&O 10/03/17 22:44 Pulse Ox 95 O2 Delivery Nasal Cannula O2 Flow Rate 2.00 Progress Note : Time: 22:10 Progress Note Initial evaluation completed, cardiac workup started. Will continue to monitor. SaO2 87-89% on room air, oxygen 2 L per nasal cannula SaO2 improving to 95%. 2240 patient continuing to complain of pain 01/22, morphine 3 mg IV. 2300 after multiple attempts 23-gauge IV in the right hand. 2315 patient reports improvement in pain after morphine. Metoprolol 100 mg by mouth for tachycardia. [address] Jimenez by phone for admission, patient will be [facility]. Consult Dr. Grace regarding the anemia and JKA antibody; will possibly need general surgery consult for IV access with central line, consult Dr. Alcaraz for chest pain. [address] Alcaraz regarding patient's chest pain. Initial ECG Impression Date: Oct 03, 2017 Initial ECG Impression Time: 22:16 Initial ECG Rate: 112 Initial ECG Rhythm: S.Tach Initial ECG Intervals: Normal Initial ECG Intervals PA 144, QRSD 106, QT 336, QTC 459. Hiltons P 39, QRS 12, T 132. Initial ECG Impression: Normal Initial ECG Comparisson: Unchanged Comment EKG reviewed with Dr. Ramirez along with previous one from 09/12/2017, concurred with interpretation. Diagonstic Imaging: Xray Plain Films/CT/US/NM/MRI: chest Comments No acute processes noted. Reviewed by me. Will be read by radiology tomorrow Departure Impression Primary Impression: Chest pain Qualified Codes: R07.9 - Chest pain, unspecified Additional Impressions: Anemia Qualified Codes: D64.9 - Anemia, unspecified Hyperglycemia Tachycardia Disposition: ADMITTED INPATIENT Condition: Stable Admissions Decision to Admit Reason: Admit from ER (General) Decision to Admit/Date: Oct 03, 2017 Time/Decision to Admit Time: 23:50 Departure-Patient Inst. Referrals: JAMES TORRES MD (PCP/Family) Primary Care Physician Copy Copies To 1: JAMES TORRES MD Copies To 2: Wei ALCARAZ MD; SHIREEN AGARWAL AMY ARNP Oct 03, 2017 22:59
[2017-10-03 23:26] LABS: BASOPHILS % (AUTO) 0 % (0-10); EOSINOPHILS # (AUTO) 0.1 10^3/uL (0.0-0.3); EOSINOPHILS % (AUTO) 2 % (0-10); HEMATOCRIT 24 % (35-52); HEMOGLOBIN 7.4 G/DL (11.5-16.0); LYMPHOCYTES # (AUTO) 0.7 X 10^3 (1.0-4.0); LYMPHOCYTES % (AUTO) 11 % (12-44); MEAN CORPUSCULAR HEMOGLOBIN 30 PG (25-34); MEAN CORPUSCULAR HGB CONC 30 G/DL (32-36); MEAN CORPUSCULAR VOLUME 100 FL (80-99); MEAN PLATELET VOLUME 9.5 FL (7.4-10.4); MONOCYTES # (AUTO) 0.4 X 10^3 (0.0-1.0); MONOCYTES % (AUTO) 7 % (0-12); NEUTROPHILS % (AUTO) 80 % (42-75); PLATELET COUNT 192 10^3/uL (130-400); RED BLOOD COUNT 2.45 10^6/uL (4.35-5.85); RED CELL DISTRIBUTION WIDTH 15.8 % (10.0-14.5); WHITE BLOOD COUNT 6.2 10^3/uL (4.3-11.0)
[2017-10-03] MEDS ORDERED: meTOprolol SUCCINATE 100 MG (TOPROL XL) TAB PO ONE (23:30)
[2017-10-03] MEDS ORDERED: NS IV 1000 ML 1,000 ML IV ONE (23:37)
[2017-10-03 23:39] LABS: INR 1.1 (0.8-1.4); PROTHROMBIN TIME PATIENT 14.1 SEC (12.2-14.7)
[2017-10-03 23:44] LABS: ALANINE AMINOTRANSFERASE 19 U/L (0-55); ALBUMIN 3.9 GM/DL (3.2-4.5); ALKALINE PHOSPHATASE 68 U/L (40-136); BILIRUBIN,TOTAL 0.5 MG/DL (0.1-1.0); BUN/CREATININE RATIO 18; CALCIUM 9.5 MG/DL (8.5-10.1); CARBON DIOXIDE 21 MMOL/L (21-32); CHLORIDE 104 MMOL/L (98-107); CREATININE SERUM 1.55 MG/DL (0.60-1.30); GFR ESTIMATED 34; MAGNESIUM 2.3 MG/DL (1.8-2.4); SODIUM 138 MMOL/L (135-145); TOTAL PROTEIN 7.5 GM/DL (6.4-8.2)
[2017-10-03 23:46] LABS: GLUCOSE 448 MG/DL (70-105)
[2017-10-03] MEDS ORDERED: inSUlin (REGULAR) HUMAN 1 UNIT/0.01 ML (CHARGE PER UNIT) IV STA (23:49)
[2017-10-04] VITALS (13 sets, daily range): BP systolic 139–218; BP diastolic 64–91
[2017-10-04] MEDS ORDERED: morphine INJ 10 MG/ML 1ML (SYR OR VIAL) IVP STA (00:11)
--- OUTSIDE RECORDS SUMMARY | 2017-10-04 00:33 | XMS REPORT | Encounter Summary ---
Author Author [facility] Organization [facility] Address Unknown Phone Unavailable Care Team Providers Care Solderer Dipper Name Role Phone Carla Wilson MD PCP Naima Field MD Unavailable Encounter Details Date Type Department Care Team Description 09/28/2017 Hospital [facility] Sri Okeefe MD Arrived Encounter Cancer [facility] - OP Lab [address] [place] [address] [phone] Social History Tobacco Use Types Packs/Day Years [...] Specimen Performing Laboratory Blood MAIN LAB [address] [place] [address] * PERIPHERAL SMEAR (09/28/2017 3:42 PM) Component [...] Specimen Performing Laboratory Blood MAIN LAB [address] [place] [address] * LDH-LACTATE DEHYDROGENASE (09/28/2017 3:42 PM) Component Value Ref Range Lactate Dehydrogenase 173 100 - 210 U/L Specimen Performing Laboratory Blood MAIN LAB [address] [place] [address] * HAPTOGLOBIN (09/28/2017 3:42 PM) Component Value Ref Range Haptoglobin 140 16 - 200 MG/DL Specimen Performing Laboratory Blood MAIN LAB [address] [place] [address] * IRON + BINDING CAPACITY + %SAT+ FERRITIN (09/28/2017 3:42 PM) Component Value Ref Range Iron 51 50 - 160 MCG/DL Iron Binding-TIBC 422 (H) 270 - 380 MCG/DL % Saturation 12 (L) 28 - 42 % Ferritin 146 10 - 200 NG/ML Specimen Performing Laboratory Blood MAIN LAB [address] [place] [address] * RETICULOCYTE COUNT (09/28/2017 3:42 PM) Component Value Ref Range Retic, Uncorrected 4.1 (H) 0.5 - 2.0 % Retic, Corrected 2.4 % Retic, Absolute 106.3 (H) 30 - 94 K/UL Specimen Performing Laboratory Blood MAIN LAB [address] [place], [place] [id number] * CBC AND DIFF (09/28/2017 3:42 PM) [...] - 0.20 K/UL Specimen Performing Laboratory Blood [facility] [place] [address] [address] in this encounter Visit Diagnoses Diagnosis Anemia, unspecified type
--- OUTSIDE RECORDS SUMMARY | 2017-10-04 00:33 | XMS REPORT | Encounter Summary ---
Author Author [facility] Organization [facility] Address Unknown Phone Unavailable Care Team Providers Care Hand Filer Balance Wheel Name Role Phone Carla Wilson MD PCP Naima Field MD Unavailable Encounter Details Date Type Department Care Team Description 09/23/2017 Telephone [facility] Phu Erazo RN Cancer Center - Exam [address] [place] [id number] Social History Tobacco Use Types Packs/Day Years [...] 09/28/2017 2:00 PM Sri Okeefe MD [facility] Exam 09/28/2017 2:00 PM TARIK LEGGETT [facility] Exam Diagnosis & Reason for Visit: Iron Deficiency anemia, GI blood loss Physician Info: Referring Physician: Self Referral PCP: Carla Wilson MD Contact Name & Number: [phone] Medical Oncologist: Naima Grace MD History of [...]
--- OUTSIDE RECORDS SUMMARY | 2017-10-04 00:33 | XMS REPORT | Continuity of Care Document ---
Author Author [facility] Organization [facility] Address Unknown Phone Unavailable Care Team Providers Care Sales Agent Financial Report Service Name Role Phone [employer] Unavailable Unavailable Problems Medications Allergies, Adverse Reactions, Alerts Immunizations Results Vital Signs Encounters Location Location Details Encounter Type Encounter Number Reason For Visit Attending Provider ADM Date DC Date Status Source [place] SERIES [id number] SUZAN RICARDO 09/28/2017 09/28/2017 Active [facility] O SUZAN RICARDO Active [facility] Procedures Plan of Care Social History Assessment and Plan Family History Advance Directives Functional Status
--- OUTSIDE RECORDS SUMMARY | 2017-10-04 00:33 | XMS REPORT | Clinical Summary ---
Author Author [facility] Organization [facility] Address Unknown Phone Unavailable Care Team Providers Care Spoon Maker Name Role Phone Carla Wilson MD PCP Naima Field MD Unavailable Source Comments Some departments are not documenting in the electronic medical record. If you do not see the information that you expected, contact Release of Information in the Health Information Management department at [phone] for further assistance in locating additional records.[facility] Allergies Active Allergy Reactions Severity Noted [...] NG/ML Specimen Performing Laboratory Blood MAIN LAB [address] [place] [address] * PERIPHERAL SMEAR (09/28/2017 3:42 PM) Component [...] Specimen Performing Laboratory Blood MAIN LAB [address] [place] [address] * ERYTHROPOIETIN (09/28/2017 3:42 PM) Component Value Ref Range Erythropoietin 48.1 (H) 3.7 - 29.5 MU/ML Specimen Performing Laboratory Blood MAIN LAB [address] [place] [address] * RETICULOCYTE COUNT (09/28/2017 3:42 PM) Component Value Ref Range Retic, Uncorrected 4.1 (H) 0.5 - 2.0 % Retic, Corrected 2.4 % Retic, Absolute 106.3 (H) 30 - 94 K/UL Specimen Performing Laboratory Blood MAIN LAB [address] [place] [address] * CBC AND DIFF (09/28/2017 3:42 PM) [...] K/UL Specimen Performing Laboratory Blood [facility] [address] [address] * LDH-LACTATE DEHYDROGENASE (09/28/2017 3:42 PM) Component Value Ref Range Lactate Dehydrogenase 173 100 - 210 U/L Specimen Performing Laboratory Blood MAIN LAB [address] [place] [address] * HAPTOGLOBIN (09/28/2017 3:42 PM) Component Value Ref Range Haptoglobin 140 16 - 200 MG/DL Specimen Performing Laboratory Blood MAIN LAB [address] [place] [address] from Last 3 Months
--- OUTSIDE RECORDS SUMMARY | 2017-10-04 00:33 | XMS REPORT | Encounter Summary ---
Author Author [facility] Organization [facility] Address Unknown Phone Unavailable Care Team Providers Care Wrapper Layer Name Role Phone Carla Wilson MD PCP Naima Field MD Unavailable Reason for Visit * Reason Comments Results Encounter Details Date Type Department Care Team Description 10/01/2017 Telephone [facility] Sri Okeefe MD Results Cancer Center - OP Exam [id number] [place] [address] [phone] [phone] Social History Tobacco Use Types Packs/Day Years [...]
--- OUTSIDE RECORDS SUMMARY | 2017-10-04 00:33 | XMS REPORT | Encounter Summary ---
Author Author [facility] Organization [facility] Address Unknown Phone Unavailable Care Team Providers Care Body Make Up Artist Name Role Phone Carla Wilson MD PCP Naima Field MD Unavailable Reason for Visit * Reason Comments Heme/Onc Care Encounter Details Date Type Department Care Team Description 09/28/2017 Office Visit [facility] Sri Okeefe MD Anemia, unspecified type Cancer Center - OP Exam [address] (Primary Dx) [address] [phone] [address] [phone] Social History Tobacco Use Types Packs/Day Years [...] If you need anything, call Chichi at [phone]. You can also email at [email or web address] or through [employer]. If you do send an email and don't get a response within 1-2 days, please call. My email is not accessible to anyone else when I am out of the office, and I'd hate to come back from vacation to hear that you' ve been waiting on a response for weeks! My fax number is [phone]. in this encounter Progress Notes * Sri Okeefe MD - 09/28/2017 2:00 PM CDT Formatting of this note may be different from the original. Date of Service: 09/28/2017 Subjective: Reason for Visit: New patient visit, self-referral. Heme/Onc Care Second opinion for anemia/GI bleeding. Boat Puller, Dr. Naima Field. Deborah Fields is a 62 y.o. female. Cancer Staging No matching staging information was found for the patient. History of Present Illness Deborah is a 62-year-old female. She is from [facility]. She is being seen at [facility]. Patient had developed anemia back in 2013 , with hemoglobin of 9.1 g. She was seen by ice rink attendant and workup include normal serum protein electrophoresis. [...] stay ahead. Perhaps refer to a different coin machine service repairer who may be able to do a push enteroscopy that will see directly see the proximal portion of the small intestine, at least. Dr. Field said he will refer her to a different GI clinic. He can call me at any time at [phone]. We will call the patient with the [...] MU/ML Specimen Performing Laboratory Blood MAIN LAB [address] [place] [address] * PERIPHERAL SMEAR (09/28/2017 3:42 PM) Component [...] report. Specimen Performing Laboratory Blood MAIN LAB [address] [place] [address] * LDH-LACTATE DEHYDROGENASE (09/28/2017 3:42 PM) Component Value Ref Range Lactate Dehydrogenase 173 100 - 210 U/L Specimen Performing Laboratory Blood [facility] [address] [place] [address] * HAPTOGLOBIN (09/28/2017 3:42 PM) Component Value Ref Range Haptoglobin 140 16 - 200 MG/DL Specimen Performing Laboratory Blood [facility] [address] [place] [address] * IRON + BINDING CAPACITY + %SAT+ FERRITIN (09/28/2017 3:42 PM) Component Value Ref Range Iron 51 50 - 160 MCG/DL Iron Binding-TIBC 422 (H) 270 - 380 MCG/DL % Saturation 12 (L) 28 - 42 % Ferritin 146 10 - 200 NG/ML Specimen Performing Laboratory Blood [facility] [address] [place] [address] * RETICULOCYTE COUNT (09/28/2017 3:42 PM) Component Value Ref Range Retic, Uncorrected 4.1 (H) 0.5 - 2.0 % Retic, Corrected 2.4 % Retic, Absolute 106.3 (H) 30 - 94 K/UL Specimen Performing Laboratory Blood MAIN LAB [address] [place], [place] [address] [address] * CBC AND DIFF (09/28/2017 3:42 PM) [...] - 0.20 K/UL Specimen Performing Laboratory Blood [facility] [place] [address] [place] [phone] in this encounter Visit Diagnoses Diagnosis Anemia, unspecified type - Primary
--- OUTSIDE RECORDS SUMMARY | 2017-10-04 00:38 | XMS REPORT | Continuity of Care Document ---
Author Author [facility] [address] Organization [facility] [address] Address Unknown Phone Unavailable Allergies Active Description Code Type Severity Reaction Onset Reported/Identified Relationship to Patient Clinical Status Yes methotrexate [id number] Drug Allergy Unknown N/A 03/24/2014 Yes Htvsnln-Lzq-Qar Reductase Inhibitor [id number] Drug Allergy Moderate GI UPSET, N/V 01/01/2017 Yes cefadroxil [id number] Drug Allergy Mild N/A 01/01/2017 Yes diltiazem [id number] Drug Allergy Unknown mouth burning a 02/23/2017 Medications There is no data. 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 SHIREEN AGARWAL Ot I12.9 HYPERTENSIVE CHRONIC KIDNEY DISEASE W ST SHIREEN AGARWAL Ot I25.10 ATHSCL HEART DISEASE OF [place] CORONARY SHIREEN AGARWAL Ot I48.91 UNSPECIFIED ATRIAL FIBRILLATION SHIREEN AGARWAL Ot N18.3 CHRONIC KIDNEY DISEASE, STAGE 3 (MODERAT SHIREEN AGARWAL Ot Z79.899 OTHER SPEECH AND LANGUAGE TUTOR (CURRENT) DRUG THERAPY 05/14/1018 MELIZA KHOURY, BRANDEN Capone D50.9 IRON DEFICIENCY ANEMIA, UNSPECIFIED 05/14/1018 BRANDEN HAIDER MD Ot E03.9 HYPOTHYROIDISM, UNSPECIFIED 05/14/1018 BRANDEN HAIDER MD Ot 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 W DIABETIC 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 05/14/1018 BRANDEN HAIDER MD Ot I12.9 HYPERTENSIVE CHRONIC KIDNEY DISEASE W ST 05/14/1018 BRANDEN HAIDER MD Ot I25.10 ATHSCL HEART DISEASE OF [place] CORONARY 05/14/1018 MELIZA KHOURY, BRANDEN Ot I48.91 UNSPECIFIED ATRIAL FIBRILLATION 05/14/1018 BRANDEN HAIDER MD Ot N18.3 CHRONIC KIDNEY DISEASE, STAGE 3 (MODERAT 05/14/1018 BRANDEN HAIDER MD Ot Z79.899 OTHER SENIOR CARE (CURRENT) DRUG THERAPY 05/22/2010 Ot 250.00 05/22/2010 [...] FACP CCDS Ot 414.01 CORONARY ATHEROSCLEROSIS OF [place] CORON 03/02/2014 LINDA KHOURY FACC, ALI FACP [...] BOBAN N Ot 414.01 CORONARY ATHEROSCLEROSIS OF [place] CORON 05/16/2014 ANY, BOBAN N Ot 585.3 [...] BOBAN N Ot 414.01 CORONARY ATHEROSCLEROSIS OF [place] CORON 08/30/2014 ANY, BOBAN N Ot 585.3 [...] 272.4 10/05/2014 Ot 250.00 10/05/2014 CHICHI RIVAS TUBE FILLER Ot 574.20 10/05/2014 CHICHI RIVAS TUBE FILLER Ot 789.1 10/05/2014 LINDA KHOURY FACC, ARNIE [...] 10/05/2014 Ot 250.00 10/05/2014 ROB CHICHI H TUBE FILLER Ot 574.20 10/05/2014 ROB CHICHI H TUBE FILLER Ot 789.1 10/05/2014 LINDA KHOURY FACC, ALI FACP CCDS Ot 401.9 10/05/2014 LINDA KHOURY [facility], ALI FACP CCDS Ot 414.00 10/05/2014 LINDA [...] BOBAN N Ot 414.01 CORONARY ATHEROSCLEROSIS OF [place] CORON 12/27/2014 ANY, BOBAN N Ot 585.3 [...] AGARWAL Ot I25.10 ATHSCL HEART DISEASE OF [place] CORONARY 06/13/2015 SHIREEN AGARWAL Ot I48.91 UNSPECIFIED ATRIAL FIBRILLATION 06/13/2015 SHIREEN AGARWAL Ot N18.3 CHRONIC KIDNEY DISEASE, STAGE 3 (MODERAT 06/13/2015 SHIREEN AGARWAL Ot V58.69 OTH MED,LT,CURRENT USE 06/13/2015 SHIREEN AGARWAL Ot Z79.899 OTHER SENIOR CARE (CURRENT) DRUG THERAPY 09/27/2015 SHIREEN AGARWAL N Ot D64.9 09/27/2015 SHIREEN AGARWAL N Ot E03.9 09/27/2015 SHIREEN AGARWAL N Ot E11.9 09/27/2015 SHIREEN AGARWAL Ot I12.9 09/27/2015 SHIREEN AGARWAL Ot I25.10 09/27/2015 SHIREEN AGARWAL Ot I48.91 09/27/2015 SHIREEN AGARWAL Ot N18.3 09/27/2015 SHIREEN AGARWAL Ot Z79.899 09/27/2015 Ot 401.9 09/27/2015 Ot 272.4 09/27/2015 Ot 250.00 09/27/2015 CHICHI RIVAS TUBE FILLER Ot 574.20 09/27/2015 CHICHI RIVAS TUBE FILLER Ot 789.1 09/27/2015 LINDA KHOURY FAC, ALI FACP CCDS Ot 401.9 09/27/2015 LINDA KHOURY [facility], ALI FACP CCDS Ot 414.00 09/27/2015 LINDA [...] N Ot I25.10 ATHSCL HEART DISEASE OF [place] CORONARY 10/09/2015 ANY, BOBAN N Ot I48.91 UNSPECIFIED ATRIAL FIBRILLATION 10/09/2015 ANY, BOBAN N Ot N18.3 CHRONIC KIDNEY DISEASE, STAGE 3 (MODERAT 10/09/2015 ANY, BOBAN N Ot Z79.899 OTHER SPEECH AND LANGUAGE TUTOR (CURRENT) DRUG THERAPY 10/17/2015 ANY, BOBAN N Ot D64.9 ANEMIA, UNSPECIFIED 10/17/2015 ANY, BOBAN N Ot E03.9 HYPOTHYROIDISM, UNSPECIFIED 10/17/2015 ANY, BOBAN N Ot 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 W DIABETIC 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 10/17/2015 ANY, BOBAN N Ot I12.9 HYPERTENSIVE CHRONIC KIDNEY DISEASE W ST 10/17/2015 ANY, BOBAN N Ot I25.10 ATHSCL HEART DISEASE OF [place] CORONARY 10/17/2015 ANY, BOBAN N Ot I48.91 UNSPECIFIED ATRIAL FIBRILLATION 10/17/2015 ANY, BOBAN N Ot N18.3 CHRONIC KIDNEY DISEASE, STAGE 3 (MODERAT 10/17/2015 ANY, BOBAN N Ot Z79.899 OTHER SPEECH AND LANGUAGE TUTOR (CURRENT) DRUG THERAPY 10/19/2015 ANY, BOBAN N Ot D64.9 ANEMIA, UNSPECIFIED 10/19/2015 ANY, BOBAN N Ot E03.9 HYPOTHYROIDISM, UNSPECIFIED 10/19/2015 ANY, BOBAN N Ot 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 W DIABETIC 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 10/19/2015 ANY, BOBAN N Ot I12.9 HYPERTENSIVE CHRONIC KIDNEY DISEASE W ST 10/19/2015 ANY, BOBAN N Ot I25.10 ATHSCL HEART DISEASE OF [place] CORONARY 10/19/2015 ANY, BOBAN N Ot I48.91 UNSPECIFIED ATRIAL FIBRILLATION 10/19/2015 ANY, BOBAN N Ot N18.3 CHRONIC KIDNEY DISEASE, STAGE 3 (MODERAT 10/19/2015 ANY, BOBAN N Ot Z79.899 OTHER SPEECH AND LANGUAGE TUTOR (CURRENT) DRUG THERAPY 11/16/2015 ANY, BOBAN N Ot D50.9 IRON DEFICIENCY ANEMIA, UNSPECIFIED 11/16/2015 ANY, BOBAN N Ot Z79.899 OTHER SENIOR CARE (CURRENT) DRUG THERAPY 12/03/2015 ANY, BOBAN N Ot D50.9 IRON DEFICIENCY ANEMIA, UNSPECIFIED 12/03/2015 ANY, BOBAN N Ot Z79.899 OTHER SPEECH AND LANGUAGE TUTOR (CURRENT) DRUG THERAPY 01/03/2016 Ot 272.4 HYPERLIPIDEMIA NEC/NOS 01/03/2016 Ot 250.00 DIAB NALLELY WO COMPL, TYPE II OR UNSPEC TY 01/03/2016 ROB, CHICHI H TUBE FILLER Ot 574.20 CHOLELITHIASIS NOS 01/03/2016 CHICHI RIVAS TUBE FILLER Ot 789.1 HEPATOMEGALY 01/03/2016 LINDA KHOURY FAC, ALI FACP CCDS Ot 401.9 HYPERTENSION NOS 01/03/2016 LINDA KHOURY FACC, ALI FACP CCDS Ot 414.00 CORON ATHEROSCLER NOS TYPE VESSEL, NATIV 01/03/2016 LINDA KHOURY FACC, ALI FACP CCDS Ot 427.31 ATRIAL FIBRILLATION 01/03/2016 TY KHOURY, TONIE Diaz Ot V72.84 EXAM PRE-OPERATIVE NOS 01/03/2016 LINDA KHUORY FACC, ALI FACP CCDS Ot 250.00 DIAB [...] 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 W DIABETIC 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 01/03/2016 ANY, BOBAN N Ot I12.9 HYPERTENSIVE CHRONIC KIDNEY DISEASE W ST 01/03/2016 ANY, BOBAN N Ot I25.10 ATHSCL HEART DISEASE OF [place] CORONARY 01/03/2016 ANY, BOBAN N Ot I48.91 UNSPECIFIED ATRIAL FIBRILLATION 01/03/2016 ANY, BOBAN N Ot N18.3 CHRONIC KIDNEY DISEASE, STAGE 3 (MODERAT 01/03/2016 ANY, BOBAN N Ot Z79.899 OTHER SPEECH AND LANGUAGE TUTOR (CURRENT) DRUG THERAPY 01/03/2016 ANY, BOBAN N Ot D50.9 IRON DEFICIENCY ANEMIA, UNSPECIFIED 01/03/2016 ANY, BOBAN N Ot Z79.899 OTHER SENIOR CARE (CURRENT) DRUG THERAPY 01/03/2016 ANY, BOBAN N Ot D64.9 ANEMIA, UNSPECIFIED 01/03/2016 ANY, BOBAN N Ot E03.9 HYPOTHYROIDISM, UNSPECIFIED 01/03/2016 ANY, BOBAN N Ot 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 W DIABETIC 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 01/03/2016 ANY, BOBAN N Ot I12.9 HYPERTENSIVE CHRONIC KIDNEY DISEASE W ST 01/03/2016 ANY, BOBAN N Ot I25.10 ATHSCL HEART DISEASE OF [place] CORONARY 01/03/2016 ANY, BOBAN N Ot I48.91 UNSPECIFIED ATRIAL FIBRILLATION 01/03/2016 ANY, BOBAN N Ot N18.3 CHRONIC KIDNEY DISEASE, STAGE 3 (MODERAT 01/03/2016 ANY, BOBAN N Ot Z79.899 OTHER SPEECH AND LANGUAGE TUTOR (CURRENT) DRUG THERAPY 01/03/2016 Ot 272.4 HYPERLIPIDEMIA NEC/NOS 01/03/2016 Ot 250.00 DIAB NALLELY WO COMPL, TYPE II OR UNSPEC TY 01/03/2016 CHICHI RIVAS Ot 574.20 CHOLELITHIASIS NOS 01/03/2016 CHICHI RIVAS TUBE FILLER Ot 789.1 HEPATOMEGALY 01/03/2016 LINDA KHOURY FACC, [...] 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 W DIABETIC 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 01/03/2016 SHIREEN AGARWAL N Ot I12.9 HYPERTENSIVE CHRONIC KIDNEY DISEASE W ST 01/03/2016 SHIREEN AGARWAL N Ot I25.10 ATHSCL HEART DISEASE OF [place] CORONARY 01/03/2016 SHIREEN AGARWAL N Ot I48.91 UNSPECIFIED ATRIAL FIBRILLATION 01/03/2016 SHIREEN AGARWAL N Ot N18.3 CHRONIC KIDNEY DISEASE, STAGE 3 (MODERAT 01/03/2016 SHIREEN AGARWAL N Ot Z79.899 OTHER SENIOR CARE (CURRENT) DRUG THERAPY 01/03/2016 SHIREEN AGARWAL N Ot D50.9 IRON DEFICIENCY ANEMIA, UNSPECIFIED 01/03/2016 SHIREEN AGARWAL N Ot Z79.899 OTHER SPEECH AND LANGUAGE TUTOR (CURRENT) DRUG THERAPY 01/04/2016 Ot 272.4 HYPERLIPIDEMIA NEC/NOS 01/04/2016 Ot 250.00 DIAB NALLELY WO COMPL, TYPE II OR UNSPEC TY 01/04/2016 CHICHI RIVAS TUBE FILLER Ot 574.20 CHOLELITHIASIS NOS 01/04/2016 CHICHI RIVAS TUBE FILLER Ot 789.1 HEPATOMEGALY 01/04/2016 LINDA KHOURY FACC, [...] 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 W DIABETIC 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 01/04/2016 SHIREEN AGARWAL Ot I12.9 HYPERTENSIVE CHRONIC KIDNEY DISEASE W ST 01/04/2016 SHIREEN AGARWAL Ot I25.10 ATHSCL HEART DISEASE OF [place] CORONARY 01/04/2016 SHIREEN AGARWAL Ot I48.91 UNSPECIFIED ATRIAL FIBRILLATION 01/04/2016 SHIREEN AGARWAL Ot N18.3 CHRONIC KIDNEY DISEASE, STAGE 3 (MODERAT 01/04/2016 SHIREEN AGARWAL Ot Z79.899 OTHER SENIOR CARE (CURRENT) DRUG THERAPY 01/04/2016 SHIREEN AGARWAL Ot D50.9 IRON DEFICIENCY ANEMIA, UNSPECIFIED 01/04/2016 SHIREEN AGARWAL Ot Z79.899 OTHER SENIOR CARE (CURRENT) DRUG THERAPY 01/07/2016 SHIREEN AGARWAL Ot D50.9 IRON DEFICIENCY ANEMIA, UNSPECIFIED 01/07/2016 SHIREEN AGARWAL Ot Z79.899 OTHER SPEECH AND LANGUAGE TUTOR (CURRENT) DRUG THERAPY 01/13/2016 SHIREEN AGARWAL Ot D50.9 IRON DEFICIENCY ANEMIA, UNSPECIFIED 01/13/2016 SHIREEN AGARWAL Ot Z79.899 OTHER SPEECH AND LANGUAGE TUTOR (CURRENT) DRUG THERAPY 08/05/2016 Ot 250.00 DIAB NALLELY WO COMPL, TYPE II OR UNSPEC TY 08/05/2016 CHICHI RIVAS TUBE FILLER Ot 574.20 CHOLELITHIASIS NOS 08/05/2016 CHICHI RIVAS TUBE FILLER Ot 789.1 HEPATOMEGALY 08/05/2016 LINDA KHOURY FACC, [...] 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 W DIABETIC 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 08/05/2016 SHIREEN AGARWAL Ot I12.9 HYPERTENSIVE CHRONIC KIDNEY DISEASE W ST 08/05/2016 SHIREEN AGARWAL Ot I25.10 ATHSCL HEART DISEASE OF [place] CORONARY 08/05/2016 SHIREEN AGARWAL Ot I48.91 UNSPECIFIED ATRIAL FIBRILLATION 08/05/2016 SHIREEN AGARWAL Ot N18.3 CHRONIC KIDNEY DISEASE, STAGE 3 (MODERAT 08/05/2016 SHIREEN AGARWAL N Ot Z79.899 OTHER SENIOR CARE (CURRENT) DRUG THERAPY 09/15/2016 SHIREEN AGARWAL N Ot D50.9 IRON DEFICIENCY ANEMIA, UNSPECIFIED 09/15/2016 SHIREEN AGARWAL Ot E03.9 HYPOTHYROIDISM, UNSPECIFIED 09/15/2016 SHIREEN AGARWAL N Ot 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 W DIABETIC 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 09/15/2016 SHIREEN AGARWAL N Ot I12.9 HYPERTENSIVE CHRONIC KIDNEY DISEASE W ST 09/15/2016 SHIREEN AGARWAL N Ot I25.10 ATHSCL HEART DISEASE OF [place] CORONARY 09/15/2016 SHIREEN AGARWAL Ot I48.91 UNSPECIFIED ATRIAL FIBRILLATION 09/15/2016 SHIREEN AGARWAL Ot N18.3 CHRONIC KIDNEY DISEASE, STAGE 3 (MODERAT 09/15/2016 SHIREEN AGARWAL Ot Z79.899 OTHER SPEECH AND LANGUAGE TUTOR (CURRENT) DRUG THERAPY 09/17/2016 Ot 250.00 DIAB NALLELY WO COMPL, TYPE II OR UNSPEC TY 09/17/2016 ROBCHICHI TUBE FILLER Ot 574.20 CHOLELITHIASIS NOS 09/17/2016 CHICHI RIVAS TUBE FILLER Ot 789.1 HEPATOMEGALY 09/17/2016 LINDA KHOURY FACC, [...] 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 W DIABETIC 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 09/17/2016 ANY, BOBAN N Ot I12.9 HYPERTENSIVE CHRONIC KIDNEY DISEASE W ST 09/17/2016 ANY, BOBAN N Ot I25.10 ATHSCL HEART DISEASE OF [place] CORONARY 09/17/2016 ANY, BOBAN N Ot I48.91 UNSPECIFIED ATRIAL FIBRILLATION 09/17/2016 ANY, BOBAN N Ot N18.3 CHRONIC KIDNEY DISEASE, STAGE 3 (MODERAT 09/17/2016 ANY, BOBAN N Ot Z79.899 OTHER SENIOR CARE (CURRENT) DRUG THERAPY 09/17/2016 ANY, BOBAN N Ot D50.9 IRON DEFICIENCY ANEMIA, UNSPECIFIED 09/17/2016 ANY, BOBAN N Ot E03.9 HYPOTHYROIDISM, UNSPECIFIED 09/17/2016 ANY, BOBAN N Ot 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 W DIABETIC 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 09/17/2016 ANY, BOBAN N Ot I12.9 HYPERTENSIVE CHRONIC KIDNEY DISEASE W ST 09/17/2016 ANY, BOBAN N Ot I25.10 ATHSCL HEART DISEASE OF [place] CORONARY 09/17/2016 ANY, BOBAN N Ot I48.91 UNSPECIFIED ATRIAL FIBRILLATION 09/17/2016 ANY, BOBAN N Ot N18.3 CHRONIC KIDNEY DISEASE, STAGE 3 (MODERAT 09/17/2016 ANY, BOBAN N Ot Z79.899 OTHER SENIOR CARE (CURRENT) DRUG THERAPY 09/17/2016 KIERAN KHOURY, BERNY Champion Ot I25.10 ATHSCL HEART DISEASE OF [place] CORONARY 09/17/2016 Ot 250.00 DIAB NALLELY WO COMPL, TYPE II OR UNSPEC TY 09/17/2016 CHICHI RIVAS TUBE FILLER Ot 574.20 CHOLELITHIASIS NOS 09/17/2016 CHICHI RIVAS TUBE FILLER Ot 789.1 HEPATOMEGALY 09/17/2016 LINDA KHOURY FACC, [...] DIABETES MELLITUS WITHOUT COMPLIC 09/17/2016 OVI KHOURY, UW Ot E78.5 HYPERLIPIDEMIA, UNSPECIFIED 09/17/2016 OVI KHOURY, JAYCOBFRANKIE Ot I10 ESSENTIAL (PRIMARY) HYPERTENSION 09/17/2016 ANY, BOBAN N Ot D64.9 ANEMIA, UNSPECIFIED 09/17/2016 ANY, BOBAN N Ot E03.9 HYPOTHYROIDISM, UNSPECIFIED 09/17/2016 ANY, BOBAN N Ot 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 W DIABETIC 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 09/17/2016 ANY, BOBAN N Ot I12.9 HYPERTENSIVE CHRONIC KIDNEY DISEASE W ST 09/17/2016 ANY, BOBAN N Ot I25.10 ATHSCL HEART DISEASE OF [place] CORONARY 09/17/2016 ANY, BOBAN N Ot I48.91 UNSPECIFIED ATRIAL FIBRILLATION 09/17/2016 ANY, BOBAN N Ot N18.3 CHRONIC KIDNEY DISEASE, STAGE 3 (MODERAT 09/17/2016 ANY, BOBAN N Ot Z79.899 OTHER SENIOR CARE (CURRENT) DRUG THERAPY 09/17/2016 ANY, BOBAN N Ot D50.9 IRON DEFICIENCY ANEMIA, UNSPECIFIED 09/17/2016 ANY, BOBAN N Ot E03.9 HYPOTHYROIDISM, UNSPECIFIED 09/17/2016 ANY, BOBAN N Ot 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 W DIABETIC 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 09/17/2016 ANY, BOBAN N Ot I12.9 HYPERTENSIVE CHRONIC KIDNEY DISEASE W ST 09/17/2016 ANY, BOBAN N Ot I25.10 ATHSCL HEART DISEASE OF [place] CORONARY 09/17/2016 ANY, BOBAN N Ot I48.91 UNSPECIFIED ATRIAL FIBRILLATION 09/17/2016 ANY, BOBAN N Ot N18.3 CHRONIC KIDNEY DISEASE, STAGE 3 (MODERAT 09/17/2016 ANY, BOBAN N Ot Z79.899 OTHER SENIOR CARE (CURRENT) DRUG THERAPY 09/17/2016 KIERAN KHOURY, BERNY Champion Ot I25.10 ATHSCL HEART DISEASE OF [place] CORONARY 09/17/2016 Ot 250.00 DIAB NALLELY WO COMPL, TYPE II OR UNSPEC TY 09/17/2016 ROB, CHICHI H TUBE FILLER Ot 574.20 CHOLELITHIASIS NOS 09/17/2016 CHICHI RIVAS TUBE FILLER Ot 789.1 HEPATOMEGALY 09/17/2016 LINDA KHOURY FACC, [...] 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 W DIABETIC 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 09/17/2016 ANY, BOBAN N Ot I12.9 HYPERTENSIVE CHRONIC KIDNEY DISEASE W ST 09/17/2016 ANY, BOBAN N Ot I25.10 ATHSCL HEART DISEASE OF [place] CORONARY 09/17/2016 ANY, BOBAN N Ot I48.91 UNSPECIFIED ATRIAL FIBRILLATION 09/17/2016 ANY, BOBAN N Ot N18.3 CHRONIC KIDNEY DISEASE, STAGE 3 (MODERAT 09/17/2016 ANY, BOBAN N Ot Z79.899 OTHER SENIOR CARE (CURRENT) DRUG THERAPY 09/17/2016 ANY, BOBAN N Ot D50.9 IRON DEFICIENCY ANEMIA, UNSPECIFIED 09/17/2016 ANY, BOBAN N Ot E03.9 HYPOTHYROIDISM, UNSPECIFIED 09/17/2016 ANY, BOBAN N Ot 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 W DIABETIC 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 09/17/2016 ANY, BOBAN N Ot I12.9 HYPERTENSIVE CHRONIC KIDNEY DISEASE W ST 09/17/2016 ANY, BOBAN N Ot I25.10 ATHSCL HEART DISEASE OF [place] CORONARY 09/17/2016 ANY, BOBAN N Ot I48.91 UNSPECIFIED ATRIAL FIBRILLATION 09/17/2016 ANY, BOBAN N Ot N18.3 CHRONIC KIDNEY DISEASE, STAGE 3 (MODERAT 09/17/2016 ANY, BOBAN N Ot Z79.899 OTHER SPEECH AND LANGUAGE TUTOR (CURRENT) DRUG THERAPY 09/17/2016 KIERAN KHOURY, BERNY Champion Ot I25.10 ATHSCL HEART DISEASE OF [place] CORONARY 09/17/2016 ANY, BOBAN N Ot D50.9 IRON DEFICIENCY ANEMIA, UNSPECIFIED 09/17/2016 ANY, BOBAN N Ot E03.9 HYPOTHYROIDISM, UNSPECIFIED 09/17/2016 ANY, BOBAN N Ot 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 W DIABETIC 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 09/17/2016 ANY, BOBAN N Ot I12.9 HYPERTENSIVE CHRONIC KIDNEY DISEASE W ST 09/17/2016 SHIREEN AGARWAL Ot I25.10 ATHSCL HEART DISEASE OF [place] CORONARY 09/17/2016 SHIREEN AGARWAL Ot I48.91 UNSPECIFIED ATRIAL FIBRILLATION 09/17/2016 SHIREEN AGARWAL Ot N18.3 CHRONIC KIDNEY DISEASE, STAGE 3 (MODERAT 09/17/2016 SHIREEN AGARWAL Ot Z79.899 OTHER SENIOR CARE (CURRENT) DRUG THERAPY 09/17/2016 BERNY ALCARAZ MD Ot I25.10 ATHSCL HEART DISEASE OF [place] CORONARY 09/17/2016 BERNY ALCARAZ MD Ot I25.10 ATHSCL HEART DISEASE OF [place] CORONARY 10/09/2016 BERNY ALCARAZ MD Ot I25.10 ATHSCL HEART DISEASE OF [place] CORONARY 10/09/2016 Ot 250.00 DIAB NALLELY WO COMPL, TYPE II OR UNSPEC TY 10/09/2016 CHICHI RIVAS TUBE FILLER Ot 574.20 CHOLELITHIASIS NOS 10/09/2016 CHICHI RIVAS TUBE FILLER Ot 789.1 HEPATOMEGALY 10/09/2016 LINDA KHOURY FACC, [...] 2 DIABETES MELLITUS WITHOUT COMPLIC 10/09/2016 OVI KOHURY, TORI-FRANKIE Ot E78.5 HYPERLIPIDEMIA, UNSPECIFIED 10/09/2016 OVI KHOURY, TORI-FRANKIE Ot I10 ESSENTIAL (PRIMARY) HYPERTENSION 10/09/2016 SHIREEN AGARWAL N Ot D64.9 ANEMIA, UNSPECIFIED 10/09/2016 SHIREEN AGARWAL N Ot E03.9 HYPOTHYROIDISM, UNSPECIFIED 10/09/2016 SHIREEN AGARWAL N Ot 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 W DIABETIC 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 10/09/2016 SHIREEN AGARWAL N Ot I12.9 HYPERTENSIVE CHRONIC KIDNEY DISEASE W ST 10/09/2016 SHIREEN AGARWAL N Ot I25.10 ATHSCL HEART DISEASE OF [place] CORONARY 10/09/2016 SHIREEN AGARWAL Ot I48.91 UNSPECIFIED ATRIAL FIBRILLATION 10/09/2016 SHIREEN AGARWAL N Ot N18.3 CHRONIC KIDNEY DISEASE, STAGE 3 (MODERAT 10/09/2016 SHIREEN AGARWAL N Ot Z79.899 OTHER SPEECH AND LANGUAGE TUTOR (CURRENT) DRUG THERAPY 10/09/2016 SHIREEN AGARWAL N Ot D50.9 IRON DEFICIENCY ANEMIA, UNSPECIFIED 10/09/2016 SHIREEN AGARWAL N Ot E03.9 HYPOTHYROIDISM, UNSPECIFIED 10/09/2016 SHIREEN AGARWAL N Ot 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 W DIABETIC 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 10/09/2016 SHIREEN AGARWAL N Ot I12.9 HYPERTENSIVE CHRONIC KIDNEY DISEASE W ST 10/09/2016 ANY, BOBAN N Ot I25.10 ATHSCL HEART DISEASE OF [place] CORONARY 10/09/2016 ANY, BOBAN N Ot I48.91 UNSPECIFIED ATRIAL FIBRILLATION 10/09/2016 ANY, BOBAN N Ot N18.3 CHRONIC KIDNEY DISEASE, STAGE 3 (MODERAT 10/09/2016 ANY, BOBAN N Ot Z79.899 OTHER SENIOR CARE (CURRENT) DRUG THERAPY 10/09/2016 KIERAN KHOURY, BERNY R Ot I25.10 ATHSCL HEART DISEASE OF [place] CORONARY 10/09/2016 KIERAN KHOURY, Wei BRANDON Ot I47.1 SUPRAVENTRICULAR TACHYCARDIA 10/09/2016 KIERAN KHOURY, Wei BRANDON Ot I48.91 UNSPECIFIED ATRIAL FIBRILLATION 10/30/2016 KIERAN KHOURY, BERNY R Ot I25.10 ATHSCL HEART DISEASE OF [place] CORONARY 11/03/2016 ANY BOBAN N Ot D50.9 IRON DEFICIENCY ANEMIA, UNSPECIFIED 11/03/2016 ANY, BOBAN N Ot E03.9 HYPOTHYROIDISM, UNSPECIFIED 11/03/2016 ANY, BOBAN N Ot 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 W DIABETIC 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 11/03/2016 ANY, BOBAN N Ot I12.9 HYPERTENSIVE CHRONIC KIDNEY DISEASE W ST 11/03/2016 ANY, BOBAN N Ot I25.10 ATHSCL HEART DISEASE OF [place] CORONARY 11/03/2016 ANY BOBAN N Ot I48.91 UNSPECIFIED ATRIAL FIBRILLATION 11/03/2016 ANY BOBAN N Ot N18.3 CHRONIC KIDNEY DISEASE, STAGE 3 (MODERAT 11/03/2016 ANY BOBAN N Ot Z79.899 OTHER SPEECH AND LANGUAGE TUTOR (CURRENT) DRUG THERAPY 11/04/2016 ANY, BOBAN N Ot D50.9 IRON DEFICIENCY ANEMIA, UNSPECIFIED 11/04/2016 ANY, BOBAN N Ot E03.9 HYPOTHYROIDISM, UNSPECIFIED 11/04/2016 ANY, BOBAN N Ot 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 W DIABETIC 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 11/04/2016 ANY, BOBAN N Ot I12.9 HYPERTENSIVE CHRONIC KIDNEY DISEASE W ST 11/04/2016 ANY, BOBAN N Ot I25.10 ATHSCL HEART DISEASE OF [place] CORONARY 11/04/2016 ANY, BOBAN N Ot I48.91 UNSPECIFIED ATRIAL FIBRILLATION 11/04/2016 ANY, BOBAN N Ot N18.3 CHRONIC KIDNEY DISEASE, STAGE 3 (MODERAT 11/04/2016 ANY, BOBAN N Ot Z79.899 OTHER SPEECH AND LANGUAGE TUTOR (CURRENT) DRUG THERAPY 11/17/2016 KIERAN KHOURY, BERNY Champion Ot I25.10 ATHSCL HEART DISEASE OF [place] CORONARY 11/18/2016 ANY, BOBAN N Ot D50.9 IRON DEFICIENCY ANEMIA, UNSPECIFIED 11/18/2016 ANY, BOBAN N Ot E03.9 HYPOTHYROIDISM, UNSPECIFIED 11/18/2016 ANY, BOBAN N Ot 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 W DIABETIC 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 11/18/2016 ANY, BOBAN N Ot I12.9 HYPERTENSIVE CHRONIC KIDNEY DISEASE W ST 11/18/2016 ANY, BOBAN N Ot I25.10 ATHSCL HEART DISEASE OF [place] CORONARY 11/18/2016 ANY, BOBAN N Ot I48.91 UNSPECIFIED ATRIAL FIBRILLATION 11/18/2016 ANY, BOBAN N Ot N18.3 CHRONIC KIDNEY DISEASE, STAGE 3 (MODERAT 11/18/2016 ANY, BOBAN N Ot Z79.899 OTHER SENIOR CARE (CURRENT) DRUG THERAPY 12/10/2016 ANY, BOBAN N Ot D50.9 IRON DEFICIENCY ANEMIA, UNSPECIFIED 12/10/2016 ANY, BOBAN N Ot E03.9 HYPOTHYROIDISM, UNSPECIFIED 12/10/2016 ANY, BOBAN N Ot 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 W DIABETIC 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 12/10/2016 ANY, BOBAN N Ot I12.9 HYPERTENSIVE CHRONIC KIDNEY DISEASE W ST 12/10/2016 ANY, BOBAN N Ot I25.10 ATHSCL HEART DISEASE OF [place] CORONARY 12/10/2016 ANY, BOBAN N Ot I48.91 UNSPECIFIED ATRIAL FIBRILLATION 12/10/2016 ANY, BOBAN N Ot N18.3 CHRONIC KIDNEY DISEASE, STAGE 3 (MODERAT 12/10/2016 ANY, BOBAN N Ot Z79.899 OTHER SENIOR CARE (CURRENT) DRUG THERAPY 12/12/2016 ANY, BOBAN N Ot D50.9 IRON DEFICIENCY ANEMIA, UNSPECIFIED 12/12/2016 ANY, BOBAN N Ot E03.9 HYPOTHYROIDISM, UNSPECIFIED 12/12/2016 ANY, BOBAN N Ot 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 W DIABETIC 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 12/12/2016 SHIREEN AGARWAL Ot I12.9 HYPERTENSIVE CHRONIC KIDNEY DISEASE W ST 12/12/2016 SHIREEN AGARWAL Ot I25.10 ATHSCL HEART DISEASE OF [place] CORONARY 12/12/2016 SHIREEN AGARWAL Ot I48.91 UNSPECIFIED ATRIAL FIBRILLATION 12/12/2016 SHIREEN AGARWAL Ot N18.3 CHRONIC KIDNEY DISEASE, STAGE 3 (MODERAT 12/12/2016 SHIREEN AGARWAL Ot Z79.899 OTHER SENIOR CARE (CURRENT) DRUG THERAPY 12/16/2016 KIERAN KHOURY, Wei BRANDON Ot I47.1 SUPRAVENTRICULAR TACHYCARDIA 12/16/2016 KIERAN KHOURY, Wei BRANDON Ot I48.91 UNSPECIFIED ATRIAL FIBRILLATION 12/20/2016 KIERAN KHOURY, Wei BRANDON Ot I47.1 SUPRAVENTRICULAR TACHYCARDIA 12/20/2016 KIERAN KHOURY, Wei BRANDON Ot I48.91 UNSPECIFIED ATRIAL FIBRILLATION 12/31/2016 Ot 250.00 DIAB NALLELY WO COMPL, TYPE II OR UNSPEC TY 12/31/2016 CHICHI RIVAS TUBE FILLER Ot 574.20 CHOLELITHIASIS NOS 12/31/2016 CHICHI RIVAS TUBE FILLER Ot 789.1 HEPATOMEGALY 12/31/2016 LINDA KHOURY FACC, [...] Ot E03.9 HYPOTHYROIDISM, UNSPECIFIED 12/31/2016 SHIREEN AGARWAL Ot 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 W DIABETIC 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 12/31/2016 SHIREEN AGARWAL Ot I12.9 HYPERTENSIVE CHRONIC KIDNEY DISEASE W ST 12/31/2016 SHIREEN AGARWAL Ot I25.10 ATHSCL HEART DISEASE OF [place] CORONARY 12/31/2016 SHIREEN AGARWAL Ot I48.91 UNSPECIFIED ATRIAL FIBRILLATION 12/31/2016 SHIREEN AGARWAL Ot N18.3 CHRONIC KIDNEY DISEASE, STAGE 3 (MODERAT 12/31/2016 SHIREEN AGARWAL Ot Z79.899 OTHER SPEECH AND LANGUAGE TUTOR (CURRENT) DRUG THERAPY 12/31/2016 KIERAN KHOURY, BERNY Champion Ot I25.10 ATHSCL HEART DISEASE OF [place] CORONARY 12/31/2016 KIERAN KHOURY, BERNY Champion Ot I25.10 ATHSCL HEART DISEASE OF [place] CORONARY 12/31/2016 ANY SHIREEN Narvaez Ot D50.9 IRON DEFICIENCY ANEMIA, UNSPECIFIED 12/31/2016 ANY SHIREEN Narvaez Ot E03.9 HYPOTHYROIDISM, UNSPECIFIED 12/31/2016 ANY SHIREEN N Ot 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 W DIABETIC 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 12/31/2016 ANY SHIREEN Narvaez Ot I12.9 HYPERTENSIVE CHRONIC KIDNEY DISEASE W ST 12/31/2016 ANY SHIREEN Narvaez Ot I25.10 ATHSCL HEART DISEASE OF [place] CORONARY 12/31/2016 ANY SHIREEN Narvaez Ot I48.91 UNSPECIFIED ATRIAL FIBRILLATION 12/31/2016 ANY SHIREEN Narvaez Ot N18.3 CHRONIC KIDNEY DISEASE, STAGE 3 (MODERAT 12/31/2016 ANY SHIREEN Narvaez Ot Z79.899 OTHER SENIOR CARE (CURRENT) DRUG THERAPY 12/31/2016 KIERAN KHOURY, Wei BRANDON Ot I47.1 SUPRAVENTRICULAR TACHYCARDIA 12/31/2016 KIERAN KHOURY, Wei BRANDON Ot I48.91 UNSPECIFIED ATRIAL FIBRILLATION 01/01/2017 KIERAN KHOURY, Wei BRANDON Ot I47.1 SUPRAVENTRICULAR TACHYCARDIA 01/01/2017 KIERAN KHOURY, Wei BRANDON Ot I48.91 UNSPECIFIED ATRIAL FIBRILLATION 01/01/2017 NWAGWU, ANNELDORE Jasmina BUSINESS SUPPORT ASSISTANT Ot D64.9 ANEMIA, UNSPECIFIED 01/01/2017 NWAGWU, ISIDORE O BUSINESS SUPPORT ASSISTANT Ot D64.9 ANEMIA, UNSPECIFIED 01/02/2017 SABRINA ROSSI DO Ot D50.9 IRON DEFICIENCY ANEMIA, UNSPECIFIED 01/02/2017 SABRINA ROSSI DO Ot E03.9 HYPOTHYROIDISM, UNSPECIFIED 01/02/2017 FLO DOSABRINA Ot 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 W DIABETIC 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 01/02/2017 SABRINA ROSSI DO Ot E78.5 HYPERLIPIDEMIA, UNSPECIFIED 01/02/2017 SABRINA ROSSI DO Ot I12.9 HYPERTENSIVE CHRONIC KIDNEY DISEASE W ST 01/02/2017 SABRINA ROSSI DO Ot I25.10 ATHSCL HEART DISEASE OF [place] CORONARY 01/02/2017 SABRINA ROSSI DO Ot I47.1 [...] ABNORMALITIES 01/02/2017 SABRINA ROSSI DO Ot Z79.01 SPEECH AND LANGUAGE TUTOR (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 OF ANTICOAGULANT 01/02/2017 SABRINA ROSSI DO Ot Z79.84 SPEECH AND LANGUAGE TUTOR (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 OF ORAL HYPOGLYC 01/02/2017 SABRINA ROSSI DO Ot Z79.899 OTHER SPEECH AND LANGUAGE TUTOR (CURRENT) DRUG THERAPY 01/02/2017 SABRINA ROSSI DO Ot Z80.0 FAMILY HISTORY OF MALIGNANT NEOPLASM OF 01/02/2017 SABRINA ROSSI DO Ot Z95.5 PRESENCE OF CORONARY ANGIOPLASTY IMPLANT 01/06/2017 SABRINA ROSSI DO Ot D50.9 IRON DEFICIENCY ANEMIA, UNSPECIFIED 01/06/2017 SABRINA ROSSI DO Ot E03.9 HYPOTHYROIDISM, UNSPECIFIED 01/06/2017 SABRINA ROSSI DO Ot 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 W DIABETIC 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 01/06/2017 SABRINA ROSSI DO Ot E78.5 HYPERLIPIDEMIA, UNSPECIFIED 01/06/2017 SABRINA ROSSI DO Ot I12.9 HYPERTENSIVE CHRONIC KIDNEY DISEASE W ST 01/06/2017 SABRINA ROSSI DO Ot I25.10 ATHSCL HEART DISEASE OF [place] CORONARY 01/06/2017 SABRINA ROSSI DO Ot I47.1 [...] ABNORMALITIES 01/06/2017 SABRINA ROSSI DO Ot Z79.01 SPEECH AND LANGUAGE TUTOR (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 OF ANTICOAGULANT 01/06/2017 SABRINA ROSSI DO Ot Z79.84 SENIOR CARE (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 OF ORAL HYPOGLYC 01/06/2017 SABRINA ROSSI DO Ot Z79.899 OTHER SPEECH AND LANGUAGE TUTOR (CURRENT) DRUG THERAPY 01/06/2017 SABRINA ROSSI DO Ot Z80.0 FAMILY HISTORY OF MALIGNANT NEOPLASM OF 01/06/2017 SABRINA ROSSI DO Ot Z95.5 PRESENCE OF CORONARY ANGIOPLASTY IMPLANT 01/29/2017 Ot 250.00 DIAB NALLELY WO COMPL, TYPE II OR UNSPEC TY 01/29/2017 CHICHI RIVAS TUBE FILLER Ot 574.20 CHOLELITHIASIS NOS 01/29/2017 CHICHI RIVAS TUBE FILLER Ot 789.1 HEPATOMEGALY 01/29/2017 LINDA GONZALESC, ALI [...] CCDS Ot 401.9 HYPERTENSION NOS 01/29/2017 LINDA KHUORY FACC, ALI FACP CCDS Ot 427.0 PAROX [...] DIABETES MELLITUS WITHOUT COMPLIC 01/29/2017 OVI KHOURY, TORI-FRANKEI Ot E78.5 HYPERLIPIDEMIA, UNSPECIFIED 01/29/2017 OVI KHOURY, TORI-FRANKIE Ot I10 ESSENTIAL (PRIMARY) HYPERTENSION 01/29/2017 SHIREEN AGARWAL Ot D64.9 ANEMIA, UNSPECIFIED 01/29/2017 SHIREEN AGARWAL Ot E03.9 HYPOTHYROIDISM, UNSPECIFIED 01/29/2017 SHIREEN AGARWAL N Ot 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 W DIABETIC 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 01/29/2017 SHIREEN AGARWAL Ot I12.9 HYPERTENSIVE CHRONIC KIDNEY DISEASE W ST 01/29/2017 SHIREEN AGARWAL N Ot I25.10 ATHSCL HEART DISEASE OF [place] CORONARY 01/29/2017 SHIREEN AGARWAL Ot I48.91 UNSPECIFIED ATRIAL FIBRILLATION 01/29/2017 SHIREEN AGARWAL N Ot N18.3 CHRONIC KIDNEY DISEASE, STAGE 3 (MODERAT 01/29/2017 SHIREEN AGARWAL N Ot Z79.899 OTHER SPEECH AND LANGUAGE TUTOR (CURRENT) DRUG THERAPY 01/29/2017 KIERAN KHOURY, BERNY R Ot I25.10 ATHSCL HEART DISEASE OF [place] CORONARY 01/29/2017 KIERAN KHOURY, BERNY R Ot I25.10 ATHSCL HEART DISEASE OF [place] CORONARY 01/29/2017 SHIREEN AGARWAL Ot D50.9 IRON DEFICIENCY ANEMIA, UNSPECIFIED 01/29/2017 SHIREEN AGARWAL N Ot E03.9 HYPOTHYROIDISM, UNSPECIFIED 01/29/2017 SHIREEN AGARWAL Ot 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 W DIABETIC 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.] 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 W DIABETIC 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 01/29/2017 SHIREEN AGARWAL Ot I12.9 HYPERTENSIVE CHRONIC KIDNEY DISEASE W ST 01/29/2017 SHIREEN AGARWAL Ot I25.10 ATHSCL HEART DISEASE OF [place] CORONARY 01/29/2017 SHIREEN AGARWAL Ot I48.91 UNSPECIFIED ATRIAL FIBRILLATION 01/29/2017 SHIREEN AGARWAL Ot N18.3 CHRONIC KIDNEY DISEASE, STAGE 3 (MODERAT 01/29/2017 SHIREEN AGARWAL N Ot Z79.899 OTHER SENIOR CARE (CURRENT) DRUG THERAPY 01/29/2017 KIERAN KHOURY, BERNY R Ot I25.10 ATHSCL HEART DISEASE OF [place] CORONARY 01/29/2017 KIERAN KHOURY, BERNY R Ot I25.10 ATHSCL HEART DISEASE OF [place] CORONARY 01/29/2017 SHIREEN AGARWAL N Ot D50.9 IRON DEFICIENCY ANEMIA, UNSPECIFIED 01/29/2017 ANY BOBAN N Ot E03.9 HYPOTHYROIDISM, UNSPECIFIED 01/29/2017 ANY, BOBAN N Ot 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 W DIABETIC 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 01/29/2017 ANYJJ BALDWINAN N Ot I12.9 HYPERTENSIVE CHRONIC KIDNEY DISEASE W ST 01/29/2017 ANYSHIREEN N Ot I25.10 ATHSCL HEART DISEASE OF [place] CORONARY 01/29/2017 ANYSHIREEN N Ot I48.91 UNSPECIFIED ATRIAL FIBRILLATION 01/29/2017 ANYSHIREEN N Ot N18.3 CHRONIC KIDNEY DISEASE, STAGE 3 (MODERAT 01/29/2017 ANY, BOBAN N Ot Z79.899 OTHER SPEECH AND LANGUAGE TUTOR (CURRENT) DRUG THERAPY 01/29/2017 KIERAN KHOURY, Wei [...] MD Ot I25.10 ATHSCL HEART DISEASE OF [place] CORONARY 01/31/2017 JAMES TORRES MD Ot I48.0 [...] ADULT 01/31/2017 JAMES TORRES MD Ot Z79.01 SPEECH AND LANGUAGE TUTOR (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 OF ANTICOAGULANT 01/31/2017 JAMES TORRES MD Ot Z95.5 PRESENCE OF CORONARY ANGIOPLASTY IMPLANT 02/11/2017 SHIREEN AGARWAL Ot D50.9 IRON DEFICIENCY ANEMIA, UNSPECIFIED 02/11/2017 SHIREEN AGARWAL Ot E03.9 HYPOTHYROIDISM, UNSPECIFIED 02/11/2017 SHIREEN AGARWAL Ot 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 W DIABETIC 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 02/11/2017 SHIREEN AGARWAL Ot I12.9 HYPERTENSIVE CHRONIC KIDNEY DISEASE W ST 02/11/2017 SHIREEN AGARWAL Ot I25.10 ATHSCL HEART DISEASE OF [place] CORONARY 02/11/2017 SHIREEN AGARWAL Ot I48.91 UNSPECIFIED ATRIAL FIBRILLATION 02/11/2017 SHIREEN AGARWAL Ot N18.3 CHRONIC KIDNEY DISEASE, STAGE 3 (MODERAT 02/11/2017 SHIREEN AGARWAL Ot Z79.899 OTHER SENIOR CARE (CURRENT) DRUG THERAPY 02/23/2017 KIERAN KHOURY, Wei [...] 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 W DIABETIC 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 03/09/2017 ANY BOBAN N Ot I12.9 HYPERTENSIVE CHRONIC KIDNEY DISEASE W ST 03/09/2017 ANY, BOBAN N Ot I25.10 ATHSCL HEART DISEASE OF [place] CORONARY 03/09/2017 ANY, BOBAN N Ot I48.91 UNSPECIFIED ATRIAL FIBRILLATION 03/09/2017 ANY, BOBAN N Ot N18.3 CHRONIC KIDNEY DISEASE, STAGE 3 (MODERAT 03/09/2017 ANY BOBAN N Ot Z79.899 OTHER SPEECH AND LANGUAGE TUTOR (CURRENT) DRUG THERAPY 03/10/2017 ANY BOBAN N Ot D50.9 IRON DEFICIENCY ANEMIA, UNSPECIFIED 03/10/2017 ANY, BOBAN N Ot E03.9 HYPOTHYROIDISM, UNSPECIFIED 03/10/2017 ANY, BOBAN N Ot 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 W DIABETIC 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 03/10/2017 ANY, BOBAN N Ot I12.9 HYPERTENSIVE CHRONIC KIDNEY DISEASE W ST 03/10/2017 ANY, BOBAN N Ot I25.10 ATHSCL HEART DISEASE OF [place] CORONARY 03/10/2017 ANY BOBAN N Ot I48.91 UNSPECIFIED ATRIAL FIBRILLATION 03/10/2017 ANY BOBAN N Ot N18.3 CHRONIC KIDNEY DISEASE, STAGE 3 (MODERAT 03/10/2017 ANY, BOBAN N Ot Z79.899 OTHER SENIOR CARE (CURRENT) DRUG THERAPY 03/13/2017 SABRINA ROSSI DO Ot D64.9 ANEMIA, UNSPECIFIED 03/13/2017 SABRINA ROSSI DO Ot E03.9 HYPOTHYROIDISM, UNSPECIFIED 03/13/2017 SABRINA ROSSI DO Ot E11.9 TYPE 2 DIABETES MELLITUS WITHOUT COMPLIC 03/13/2017 SABRINA ROSSI DO Ot K59.09 OTHER CONSTIPATION 03/19/2017 ANYSHIREEN N Ot D64.9 ANEMIA, UNSPECIFIED 03/20/2017 ANYSHIREEN N Ot D50.9 IRON DEFICIENCY ANEMIA, UNSPECIFIED 03/20/2017 ANYSHIREEN N Ot E03.9 HYPOTHYROIDISM, UNSPECIFIED 03/20/2017 ANYSIHREEN N Ot 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 W DIABETIC 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 03/20/2017 ANYSHIREEN Ot I12.9 HYPERTENSIVE CHRONIC KIDNEY DISEASE W ST 03/20/2017 SHIREEN AGARWAL Ot I25.10 ATHSCL HEART DISEASE OF [place] CORONARY 03/20/2017 ANYSHIREEN N Ot I48.91 UNSPECIFIED ATRIAL FIBRILLATION 03/20/2017 ANYSHIREEN N Ot N18.3 CHRONIC KIDNEY DISEASE, STAGE 3 (MODERAT 03/20/2017 ANYSHIREEN Ot Z79.899 OTHER SENIOR CARE (CURRENT) DRUG THERAPY 04/01/2017 ANY SHIREEN N [...] II OR UNSPEC TY 06/16/2017 CHICHI RIVAS TUBE FILLER Ot 574.20 CHOLELITHIASIS NOS 06/16/2017 CHICHI RIVAS TUBE FILLER Ot 789.1 HEPATOMEGALY 06/16/2017 LINDA KHOURY FACC, [...] 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 W DIABETIC 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 06/16/2017 SHIREEN AGARWAL Ot I12.9 HYPERTENSIVE CHRONIC KIDNEY DISEASE W ST 06/16/2017 SHIREEN AGARWAL Ot I25.10 ATHSCL HEART DISEASE OF [place] CORONARY 06/16/2017 SHIREEN AGARWAL Ot I48.91 UNSPECIFIED ATRIAL FIBRILLATION 06/16/2017 SHIREEN AGARWAL Ot N18.3 CHRONIC KIDNEY DISEASE, STAGE 3 (MODERAT 06/16/2017 SHIREEN AGARWAL Ot Z79.899 OTHER SENIOR CARE (CURRENT) DRUG THERAPY 06/16/2017 KIERAN KHOURY, BERNY Champion Ot I25.10 ATHSCL HEART DISEASE OF [place] CORONARY 06/16/2017 KIERAN KHOURY, BERNY R Ot I25.10 ATHSCL HEART DISEASE OF [place] CORONARY 06/16/2017 KIERAN KHOURY, M ROMA Ot [...] 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 W DIABETIC 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 06/22/2017 SHIREEN AGARWAL Ot I12.9 HYPERTENSIVE CHRONIC KIDNEY DISEASE W ST 06/22/2017 SHIREEN AGARWAL Ot I25.10 ATHSCL HEART DISEASE OF [place] CORONARY 06/22/2017 ANYJJ BALDWINAN N Ot I48.91 UNSPECIFIED ATRIAL FIBRILLATION 06/22/2017 SHIREEN AGARWAL N Ot N18.3 CHRONIC KIDNEY DISEASE, STAGE 3 (MODERAT 06/22/2017 ANYJJ BALDWINAN N Ot Z79.899 OTHER SENIOR CARE (CURRENT) DRUG THERAPY 07/07/2017 ANY BOBAN N Ot D50.9 IRON DEFICIENCY ANEMIA, UNSPECIFIED 07/07/2017 ANY, BOBAN N Ot E03.9 HYPOTHYROIDISM, UNSPECIFIED 07/07/2017 ANY, BOBAN N Ot 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 W DIABETIC 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 07/07/2017 ANY, BOBAN N Ot I12.9 HYPERTENSIVE CHRONIC KIDNEY DISEASE W ST 07/07/2017 ANY, BOBAN N Ot I25.10 ATHSCL HEART DISEASE OF [place] CORONARY 07/07/2017 ANY BOBAN N Ot I48.91 UNSPECIFIED ATRIAL FIBRILLATION 07/07/2017 ANY BOBAN N Ot N18.3 CHRONIC KIDNEY DISEASE, STAGE 3 (MODERAT 07/07/2017 ANY, BOBAN N Ot Z79.899 OTHER SENIOR CARE (CURRENT) DRUG THERAPY 07/07/2017 MELIZA KHOURY, BRANDEN Ot D50.9 IRON DEFICIENCY ANEMIA, UNSPECIFIED 07/07/2017 BRANDEN HAIDER MD Ot E03.9 HYPOTHYROIDISM, UNSPECIFIED 07/07/2017 MELIZA KHOURY, BRANDEN Ot 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 W DIABETIC 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 07/07/2017 MELIZA KHOURY, BRANDEN Ot I12.9 HYPERTENSIVE CHRONIC KIDNEY DISEASE W ST 07/07/2017 MELIZA KHOURY, BRANDEN Ot I25.10 ATHSCL HEART DISEASE OF [place] CORONARY 07/07/2017 MELIZA KHOURY, BRANDEN Ot I48.91 UNSPECIFIED ATRIAL FIBRILLATION 07/07/2017 MELIZA KHOURY, BRANDEN Ot N18.3 CHRONIC KIDNEY DISEASE, STAGE 3 (MODERAT 07/07/2017 MELIZA KHOURY, BRANDEN Ot Z79.899 OTHER SPEECH AND LANGUAGE TUTOR (CURRENT) DRUG THERAPY 07/10/2017 RACHELE JEFFERSON TUBE FILLER Ot D64.89 OTHER SPECIFIED ANEMIAS 07/10/2017 RACHELE JEFFERSON TUBE FILLER Ot R06.02 SHORTNESS OF BREATH 07/17/2017 CARMINE [...] DIVYA BORRERO DOIC B Ot Z79.899 OTHER SENIOR CARE (CURRENT) DRUG THERAPY 07/24/2017 DIVYA BORRERO DOIC [...] DIVYA BORRERO DOIC B Ot Z79.899 OTHER SENIOR CARE (CURRENT) DRUG THERAPY 07/24/2017 DIVYA BORRERO DOIC [...] I10 ESSENTIAL (PRIMARY) HYPERTENSION 07/24/2017 GISSELL WOOD CARMIEN B Ot I48.91 UNSPECIFIED ATRIAL FIBRILLATION 07/24/2017 DIVAY BORRERO DOIC B Ot K29.50 UNSPECIFIED CHRONIC [...] DELMAN DO, CARMINE B Ot Z79.899 OTHER SPEECH AND LANGUAGE TUTOR (CURRENT) DRUG THERAPY 07/28/2017 BRANDEN HAIDER MD Ot D50.9 IRON DEFICIENCY ANEMIA, UNSPECIFIED 07/28/2017 BRANDEN HAIDER MD Ot E03.9 HYPOTHYROIDISM, UNSPECIFIED 07/28/2017 MELIZA KHOURY, BRANDEN Ot 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 W DIABETIC 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 07/28/2017 BRANDEN HAIDER MD Ot I12.9 HYPERTENSIVE CHRONIC KIDNEY DISEASE W ST 07/28/2017 BRANDEN HAIDER MD Ot I25.10 ATHSCL HEART DISEASE OF [place] CORONARY 07/28/2017 BRANDEN HAIDER MD Ot I48.91 UNSPECIFIED ATRIAL FIBRILLATION 07/28/2017 BRANDEN HAIDER MD Ot N18.3 CHRONIC KIDNEY DISEASE, STAGE 3 (MODERAT 07/28/2017 MELIZA KHOURY, BRANDEN Ot Z79.899 OTHER SENIOR CARE (CURRENT) DRUG THERAPY 07/29/2017 ANY, BOBAN N Ot D50.9 IRON DEFICIENCY ANEMIA, UNSPECIFIED 07/29/2017 ANY, BOBAN N Ot E03.9 HYPOTHYROIDISM, UNSPECIFIED 07/29/2017 ANY, BOBAN N Ot 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 W DIABETIC 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 07/29/2017 ANY, BOBAN N Ot I12.9 HYPERTENSIVE CHRONIC KIDNEY DISEASE W ST 07/29/2017 ANY, BOBAN N Ot I25.10 ATHSCL HEART DISEASE OF [place] CORONARY 07/29/2017 ANY, BOBAN N Ot I48.91 UNSPECIFIED ATRIAL FIBRILLATION 07/29/2017 ANY, BOBAN N Ot N18.3 CHRONIC KIDNEY DISEASE, STAGE 3 (MODERAT 07/29/2017 ANY, BOBAN N Ot Z79.899 OTHER SENIOR CARE (CURRENT) DRUG THERAPY 08/11/2017 GISSELL DO, CARMINE [...] GISSELL WOOD CARMINE B Ot Z79.899 OTHER SPEECH AND LANGUAGE TUTOR (CURRENT) DRUG THERAPY 09/02/2017 SHIREEN AGARWAL Ot D50.9 IRON DEFICIENCY ANEMIA, UNSPECIFIED 09/02/2017 SHIREEN AGARWAL Ot E03.9 HYPOTHYROIDISM, UNSPECIFIED 09/02/2017 SHIREEN AGARWAL Ot 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 W DIABETIC 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 09/02/2017 SHIREEN AGARWAL Ot I12.9 HYPERTENSIVE CHRONIC KIDNEY DISEASE W ST 09/02/2017 SHIREEN AGARWAL Ot I25.10 ATHSCL HEART DISEASE OF [place] CORONARY 09/02/2017 SHIREEN AGARWAL Ot I48.91 UNSPECIFIED ATRIAL FIBRILLATION 09/02/2017 SHIREEN AGARWAL Ot N18.3 CHRONIC KIDNEY DISEASE, STAGE 3 (MODERAT 09/02/2017 SHIREEN AGARWAL N Ot Z79.899 OTHER SENIOR CARE (CURRENT) DRUG THERAPY 09/02/2017 Ot 250.00 DIAB NALLELY WO COMPL, TYPE II OR UNSPEC TY 09/02/2017 CHICHI RIVAS TUBE FILLER Ot 574.20 CHOLELITHIASIS NOS 09/02/2017 CHICHI RIVAS TUBE FILLER Ot 789.1 HEPATOMEGALY 09/02/2017 LINDA KHOURY FACC, [...] 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 W DIABETIC 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 09/02/2017 SHIREEN AGARWAL Solange Ot I12.9 HYPERTENSIVE CHRONIC KIDNEY DISEASE W ST 09/02/2017 SHIREEN AGARWAL Solange Ot I25.10 ATHSCL HEART DISEASE OF [place] CORONARY 09/02/2017 SHIREEN AGARWAL Solange Ot I48.91 UNSPECIFIED ATRIAL FIBRILLATION 09/02/2017 SHIREEN AGARWAL Solange Ot N18.3 CHRONIC KIDNEY DISEASE, STAGE 3 (MODERAT 09/02/2017 SHIREEN AGARWAL Solange Ot Z79.899 OTHER SENIOR CARE (CURRENT) DRUG THERAPY 09/02/2017 KIERAN KHOURY, BERNY Champion Ot I25.10 ATHSCL HEART DISEASE OF [place] CORONARY 09/02/2017 BERNY ALCARAZ MD Ot I25.10 ATHSCL HEART DISEASE OF [place] CORONARY 09/02/2017 KIERAN KHOURY, Wei BRANDON Ot [...] K82.1 HYDROPS OF GALLBLADDER 09/02/2017 RACHELE JEFFERSON TUBE FILLER Ot D64.89 OTHER SPECIFIED ANEMIAS 09/02/2017 RACHELE JEFFERSON TUBE FILLER Ot R06.02 SHORTNESS OF BREATH 09/02/2017 ANYJJAN N Ot D50.9 IRON DEFICIENCY ANEMIA, UNSPECIFIED 09/02/2017 ANY, BOBAN N Ot E03.9 HYPOTHYROIDISM, UNSPECIFIED 09/02/2017 ANY BOBAN N Ot 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 W DIABETIC 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 09/02/2017 ANY BOBAN N Ot I12.9 HYPERTENSIVE CHRONIC KIDNEY DISEASE W ST 09/02/2017 ANY BOBAN N Ot I25.10 ATHSCL HEART DISEASE OF [place] CORONARY 09/02/2017 ANYJJAN N Ot I48.91 UNSPECIFIED ATRIAL FIBRILLATION 09/02/2017 ANY BOBAN N Ot N18.3 CHRONIC KIDNEY DISEASE, STAGE 3 (MODERAT 09/02/2017 ANY BOBAN N Ot Z79.899 OTHER SENIOR CARE (CURRENT) DRUG THERAPY 09/13/2017 JAMES TORRES MD Ot D50.9 IRON DEFICIENCY ANEMIA, UNSPECIFIED 09/13/2017 JAMES TORRES MD Ot E03.9 HYPOTHYROIDISM, UNSPECIFIED 09/13/2017 JAMES TORRES MD Ot E11.9 TYPE 2 DIABETES MELLITUS WITHOUT COMPLIC 09/13/2017 JAMES TORRES MD Ot E78.5 HYPERLIPIDEMIA, UNSPECIFIED 09/13/2017 JAMES TORRES MD Ot I10 ESSENTIAL (PRIMARY) HYPERTENSION 09/13/2017 JAMES TORRES MD Ot I25.10 ATHSCL HEART DISEASE OF [place] CORONARY 09/13/2017 JAMES TORRES MD Ot I48.91 UNSPECIFIED ATRIAL FIBRILLATION 09/13/2017 JAMES TORRES MD Ot L40.9 PSORIASIS, UNSPECIFIED 09/13/2017 JAMES TORRES MD Ot R07.89 OTHER CHEST PAIN 09/13/2017 JAMES TORRES MD Ot R51 HEADACHE 09/13/2017 JAMES TORRES MD Ot R60.0 LOCALIZED EDEMA 09/13/2017 JAMES TORRES MD Ot Z79.899 OTHER SPEECH AND LANGUAGE TUTOR (CURRENT) DRUG THERAPY 09/13/2017 JAMES TORRES MD [...] MD Ot I25.10 ATHSCL HEART DISEASE OF [place] CORONARY 09/13/2017 JAMES TORRES MD Ot I48.91 UNSPECIFIED ATRIAL FIBRILLATION 09/13/2017 JAMES TORRES MD Ot L40.9 PSORIASIS, UNSPECIFIED 09/13/2017 JAMES TORRES MD Ot R07.89 OTHER CHEST PAIN 09/13/2017 JAMES TORRES MD Ot R51 HEADACHE 09/13/2017 JAMES TORRES MD Ot R60.0 LOCALIZED EDEMA 09/13/2017 JAMES TORRES MD Ot Z79.899 OTHER SPEECH AND LANGUAGE TUTOR (CURRENT) DRUG THERAPY 09/13/2017 JAMES TORRES MD Ot Z87.8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 09/13/2017 JAMES TORRES MD Ot Z88.8 ALLERGY STATUS TO OTH DRUG/MEDS/BIOL SUB 09/13/2017 JAMES TORRES MD Ot Z95.5 PRESENCE OF CORONARY ANGIOPLASTY IMPLANT Procedures Code Description Performed By Performed On [id number] MEASURE OF CARDIAC SAMPL PRESSURE, L H 01/30/2017 [id number] FLUOROSCOPY OF MULT COR ART USING L OSM 01/30/2017 [id number] FLUOROSCOPY OF LEFT HEART USING LOW OSMO [...] ABO+Rh group AP NRG Transfusion band number [id number] NRG Blood group antibody screen POSITIVE NRG Blood group antibodies identified - 01/29/17 13:20 Blood group antibodies identified [facility] NR Capillary blood glucose measurement by [...] REDUCED AS1 PRSMD TRFSD 06/12/17 0855 NRG [id number] - 06/10/17 11:45 [id number] SPECIMEN AVAILABLE [facility] Blood type T Indirect antibody screen panel - 06/10/17 11:45 ABO+Rh group AP NR Transfusion band number [id number] NR Blood group antibody screen POSITIVE NR Blood group antibodies identified - 06/10/17 11:45 Blood group antibodies identified JKA [facility] Comprehensive metabolic panel - 06/10/17 11:45 [...] plasma ferritin measurement (mass/volume) 45.0 % 15.0-150.0 [id number] - 07/01/17 12:54 [id number] SPECIMEN AVAILABLE [facility] Complete blood count (CBC) with automated [...] Automated blood platelet mean volume measurement 10.0 [[facility]] 7.4-10.4 Automated blood neutrophils/100 leukocytes 69 % [...] i.cardiac measurement (mass/volume) < ng/ mL <0.30 Complete blood count (CBC) with automated white blood cell (WBC) differential - 10/03/17 23:09 Blood leukocytes automated count (number/volume) 6.2 10*3/uL 4.3-11.0 Blood erythrocytes automated count (number/volume) 2.45 10*6/uL 4.35-5.85 Venous blood hemoglobin measurement (mass/volume) 7.4 g/dL 11.5-16.0 Blood hematocrit (volume fraction) 24 % 35-52 Automated erythrocyte mean corpuscular volume 100 [foz_us] 80-99 Automated erythrocyte mean corpuscular hemoglobin (mass per erythrocyte) 30 pg 25-34 Automated erythrocyte mean corpuscular hemoglobin concentration measurement ( mass/volume) 30 g/dL 32-36 Automated erythrocyte distribution width ratio 15.8 % 10.0-14.5 Automated blood platelet count (count/volume) 192 10*3/uL 130-400 Automated blood platelet mean volume measurement 9.5 [foz_us] 7.4-10.4 Automated blood neutrophils/100 leukocytes 80 % 42-75 Automated blood lymphocytes/100 leukocytes 11 % 12-44 Blood monocytes/100 leukocytes 7 % 0-12 Automated blood eosinophils/100 leukocytes 2 % 0-10 Automated blood basophils/100 leukocytes 0 % 0-10 Blood neutrophils automated count (number/volume) 5.0 10*3 1.8-7.8 Blood lymphocytes automated count (number/volume) 0.7 10*3 1.0-4.0 Blood monocytes automated count (number/volume) 0.4 10*3 0.0-1.0 Automated eosinophil count 0.1 10*3/uL 0.0-0.3 Automated blood basophil count (count/volume) 0.0 10*3/uL 0.0-0.1 PT panel in platelet poor plasma by coagulation assay - 10/03/17 23:09 Prothrombin time (PT) in platelet poor plasma by coagulation assay 14.1 s 12.2-14.7 INR in platelet poor plasma or blood by coagulation assay 1.1 0.8-1.4 Activated partial thromboplastin time (aPTT) in platelet poor plasma bycoagulation assay - 10/03/17 23:09 Activated partial thromboplastin time (aPTT) in platelet poor plasma bycoagulation assay 29 s 24-35 Comprehensive metabolic panel - 10/03/17 23:09 Serum or plasma sodium measurement (moles/volume) 138 mmol/L 135-145 Serum or plasma potassium measurement (moles/volume) 5.0 mmol/L 3.6-5.0 Serum or plasma chloride measurement (moles/volume) 104 mmol/L 98-107 Carbon dioxide 21 mmol/L 21-32 Serum or plasma anion gap determination (moles/volume) 13 mmol/L 5-14 Serum or plasma urea nitrogen measurement (mass/volume) 28 mg/dL 7-18 Serum or plasma creatinine measurement (mass/volume) 1.55 mg/dL 0.60-1.30 Serum or plasma urea nitrogen/creatinine mass ratio 18 NRG Serum or plasma creatinine measurement with calculation of estimated glomerular filtration rate 34 NRG Serum or plasma glucose measurement (mass/volume) 448 mg/dL 70-105 Serum or plasma calcium measurement (mass/volume) 9.5 mg/dL 8.5-10.1 Serum or plasma total bilirubin measurement (mass/volume) 0.5 mg/dL 0.1-1.0 Serum or plasma alkaline phosphatase measurement (enzymatic activity/volume) 68 U/L 40-136 Serum or plasma aspartate aminotransferase measurement (enzymatic activity/ volume) 30 U/L 5-34 Serum or plasma alanine aminotransferase measurement (enzymatic activity/volume ) 19 U/L 0-55 Serum or plasma protein measurement (mass/volume) 7.5 g/dL 6.4-8.2 Serum or plasma albumin measurement (mass/volume) 3.9 g/dL 3.2-4.5 Magnesium - 10/03/17 23:09 Magnesium 2.3 mg/dL 1.8-2.4 Serum or plasma troponin i.cardiac measurement (mass/volume) - 10/03/17 23:09 Serum or plasma troponin i.cardiac measurement (mass/volume) < ng/ mL <0.30 Myoglobin, serum - 10/03/17 23:09 Myoglobin, serum 39.0 ng/mL 10.0-92.0 Encounters ACCT No. Visit Date/Time Discharge Status Pt. Type Provider Facility Loc./Unit Complaint [id number] 09/23/2017 11:57:00 09/23/2017 23:59:59 CLS Outpatient SHIREEN AGARWAL [facility] [address] ONC [id number] 09/12/2017 22:15:00 09/13/2017 14:45:00 DIS Inpatient JAMES TORRES MD [facility] [address] ICU CHEST PAIN [id number] 07/17/2017 14:09:00 07/28/2017 10:19:00 DIS Outpatient BRANDEN HAIDER MD [facility] [address] ONC [id number] 07/17/2017 09:59:00 07/17/2017 13:30:00 DIS Outpatient CARMINE BORRERO DO [facility] [address] ENDO GI BLEED [id number] 07/16/2017 15:00:00 07/16/2017 15:00:00 CAN Preadmit CARMINE BORRERO DO [facility] [address] PREOP GI BLEED [id number] 07/01/2017 12:12:00 07/07/2017 09:04:00 DIS Outpatient SHIREEN AGARWAL [facility] [address] ONC [id number] 06/16/2017 10:05:00 06/16/2017 00:01:00 DIS Outpatient SHIREEN AGARWAL N [facility] [address] ONC [id number] 06/14/2017 14:39:00 06/14/2017 23:59:59 CLS Outpatient RACHELE JEFFERSON [facility] [address] LAB ANEMIA,SHORTNESS OF BREATH [id number] 05/21/2017 12:23:00 05/21/2017 23:59:59 CLS Outpatient SABRINA ROSSI DO [facility] [address] RAD ABD PAIN, ANEMIA [id number] 05/12/2017 09:09:00 05/12/2017 23:59:59 CLS Outpatient JAMES TORRES MD [facility] [address] LAB [id number] 04/07/2017 06:54:00 04/07/2017 23:59:59 CLS Outpatient SABRINA ROSSI DO [facility] [address] ENDO INFLAMMATION [id number] 04/06/2017 11:00:00 04/06/2017 11:22:00 DIS Outpatient SABRINA ROSSI DO [facility] [address] PREOP CAPSULE ENDO [id number] 03/04/2017 10:21:00 03/09/2017 00:01:00 DIS Outpatient SHIREEN AGARWAL N [facility] [address] ONC [id number] 03/02/2017 07:20:00 03/02/2017 23:59:59 CLS Outpatient SABRINA ROSSI DO [facility] [address] ENDO ANEMIA [id number] 02/23/2017 05:40:00 02/23/2017 11:52:00 DIS Outpatient SABRINA ROSSI DO [facility] [address] PREOP ANEMIA [id number] 01/29/2017 09:44:00 01/31/2017 15:52:00 DIS Inpatient JAMES TORRES MD [facility] [address] ICU A-FIB WITH RVR [id number] 01/02/2017 06:29:00 01/02/2017 08:45:00 DIS Outpatient SABRINA ROSSI DO [facility] [facility] [address] ENDO ANEMIA; OCCULT POSITIVE STOOLS [id number] 12/31/2016 11:10:00 01/01/2017 10:01:00 DIS Outpatient MACIEL WELCH APRN [facility] [address] LAB ANEMIA [id number] 12/31/2016 12:53:00 12/31/2016 23:59:59 CLS Outpatient SABRINA ROSSI DO [facility] [address] PREOP ANEMIA, OCCULT POSITIVE STOOL [id number] 12/17/2016 09:30:00 12/17/2016 23:59:59 CLS Preadmit Wei ALCARAZ MD [facility] [address] CARD AFIB,PSVT [id number] 10/10/2016 08:46:00 12/16/2016 00:01:00 DIS Outpatient Wei ALCARAZ MD [facility] [address] CARD AFIB,PSVT [id number] 10/24/2016 08:37:00 11/03/2016 00:01:00 DIS Outpatient SHIREEN AGARWAL [facility] [address] ONC [id number] 10/24/2016 08:41:00 10/24/2016 23:59:59 CLS Outpatient BERNY ALCARAZ MD [facility] [address] LAB [id number] 09/15/2016 12:15:00 09/15/2016 23:59:59 CLS Outpatient BERNY ALCARAZ MD [facility] [address] LAB [id number] 11/27/2015 15:28:00 01/07/2016 00:01:00 DIS Outpatient SHIREEN AGARWAL [facility] [address] ONC [id number] 10/04/2015 13:17:00 10/04/2015 23:59:59 CLS Outpatient SHIREEN AGARWAL [facility] [address] ONC [id number] 06/12/2015 11:11:00 06/13/2015 00:01:00 DIS Outpatient SHIREEN AGARWAL [facility] [address] ONC [id number] 06/04/2015 15:34:00 06/04/2015 23:59:59 CLS Preadmit RACHELE JEFFERSON [facility] [address] ONC [id number] 03/29/2015 11:35:00 03/29/2015 23:59:59 CLS Outpatient WU DIOR MD [facility] [address] LAB [id number] 03/15/2015 14:54:00 03/15/2015 23:59:59 CLS Outpatient WU DIOR MD [facility] [address] LAB [id number] 11/23/2014 13:42:00 12/27/2014 00:01:00 DIS Outpatient SHIREEN AGARWAL [facility] [address] ONC [id number] 10/05/2014 13:42:00 10/05/2014 23:59:59 CLS Outpatient CLAUDE GABRIEL MD [facility] [address] LAB [id number] 10/05/2014 12:00:00 10/05/2014 23:59:59 CLS Outpatient CLAUDE GABRIEL MD [facility] [address] RAD POST SPOT URINE [id number] 07/17/2014 14:31:00 07/17/2014 23:59:59 CLS Outpatient SHIREEN AGARWAL [facility] [address] ONC [id number] 05/24/2014 13:33:00 05/24/2014 23:59:59 CLS Outpatient LINDA KHOURY FACC, ARNIE FACP CCDS [facility] [address] LAB [id number] 04/03/2014 14:00:00 05/16/2014 00:01:00 DIS Outpatient SHIREEN AGARWAL [facility] [address] ONC [id number] 03/24/2014 06:46:00 03/24/2014 09:55:00 DIS Outpatient TONIE CRAWFORD MD [facility] [address] SDC SCREENING; ANEMIA [id number] 03/23/2014 07:22:00 03/23/2014 23:59:59 CLS Outpatient TONIE CRAWFORD MD [facility] [address] PREOP SCREENING; ANEMIA [id number] 03/02/2014 09:01:00 03/02/2014 16:00:00 DIS Outpatient LINDA KHOURY FACC, ALI FACP CCDS [facility] [address] CATH CP,CAD,HTN [id number] 02/07/2014 07:52:00 02/07/2014 23:59:59 CLS Outpatient LINDA KHOURY FACC, ALI FACP CCDS [facility] [address] CARD AFIB [id number] 03/31/2013 08:55:00 03/31/2013 23:59:59 CLS Outpatient ROB CHICHI Neville KYM [facility] [address] RAD MID EPIGASTRIC PAIN [id number] 10/03/2017 23:28:00 Document Registration [id number] 10/05/2014 11:59:00 Document Registration [id number] 10/05/2014 11:59:00 Document Registration [id number] 10/05/2014 11:59:00 Document Registration [id number] 08/24/2014 14:23:00 Document Registration [id number] 08/21/2014 07:51:00 Document Registration [id number] 04/03/2012 14:05:00 Document Registration [id number] 03/31/2016 15:06:00 03/31/2016 23:59:00 DIS Outpatient MALVIN DOMINGUEZ [id number] 03/15/2015 14:54:36 ACT Document Registration [id number] 09/16/2017 10:00:00 09/16/2017 23:59:59 CLS [facility] [id number] 05/18/2017 16:00:00 Document Registration
[2017-10-04] MEDS ORDERED: ONDANSETRON 4 MG/2 ML (SDV) Z0FRAN IV PRN (01:15)
[2017-10-04] MEDS ORDERED: morphine INJ 4 MG/ML 1 ML (VIAL/SYRINGE) IV PRN (01:15)
[2017-10-04] MEDS ORDERED: inSUlin ASPART (NovoLOG) 1 UNIT/0.01 ML (CHARGE PER UNIT) ONE (01:40)
[2017-10-04] MEDS: NS IV 1000 ML 1,000 ML IV SCH ×4 (01:44→22:50)
[2017-10-04] MEDS: inSUlin ASPART (NovoLOG) 1 UNIT/0.01 ML (CHARGE PER UNIT) SC SCH ×5 (01:44→20:20)
[2017-10-04] MEDS ORDERED: RT-ALBUTEROL/IPRATROPIUM 3 ML (DUONEB) VIAL INH PRN (02:45)
[2017-10-04 04:51] LABS: BASOPHILS % (AUTO) 0 % (0-10); EOSINOPHILS # (AUTO) 0.1 10^3/uL (0.0-0.3); EOSINOPHILS % (AUTO) 1 % (0-10); HEMATOCRIT 24 % (35-52); HEMOGLOBIN 7.4 G/DL (11.5-16.0); LYMPHOCYTES # (AUTO) 0.7 X 10^3 (1.0-4.0); LYMPHOCYTES % (AUTO) 10 % (12-44); MEAN CORPUSCULAR HEMOGLOBIN 30 PG (25-34); MEAN CORPUSCULAR HGB CONC 31 G/DL (32-36); MEAN CORPUSCULAR VOLUME 100 FL (80-99); MEAN PLATELET VOLUME 9.4 FL (7.4-10.4); MONOCYTES # (AUTO) 0.6 X 10^3 (0.0-1.0); MONOCYTES % (AUTO) 8 % (0-12); NEUTROPHILS % (AUTO) 80 % (42-75); PLATELET COUNT 207 10^3/uL (130-400); RED BLOOD COUNT 2.44 10^6/uL (4.35-5.85); RED CELL DISTRIBUTION WIDTH 16.1 % (10.0-14.5); WHITE BLOOD COUNT 7.4 10^3/uL (4.3-11.0)
[2017-10-04 05:16] LABS: ALBUMIN 3.8 GM/DL (3.2-4.5); BILIRUBIN,TOTAL 0.5 MG/DL (0.1-1.0); CALCIUM 9.2 MG/DL (8.5-10.1); CREATININE SERUM 1.29 MG/DL (0.60-1.30); POTASSIUM 5.5 MMOL/L (3.6-5.0); TOTAL PROTEIN 7.2 GM/DL (6.4-8.2)
--- NOTE | 2017-10-04 06:01 | Diagnostic Imaging Report ---
EXAM: CHEST 1 VIEW, AP/PA ONLY INDICATION: Chest pain. COMPARISON: Chest radiograph 09/12/2017. FINDINGS: Cardiomegaly with increasing pulmonary venous congestion. Bibasilar atelectasis and/or infiltrate. No definite pleural effusion. No pneumothorax. No acute osseous findings. IMPRESSION: 1. Cardiomegaly with increasing pulmonary venous congestion. 2. Increasing bibasilar atelectasis or infiltrate. Dictated by: Dictated on workstation # [id number]
[2017-10-04] MEDS ORDERED: ISOSORBIDE MONONITRATE 60 MG (IMDUR) TAB PO ONE ×2 (06:15→06:18)
[2017-10-04] MEDS ORDERED: FOLI0.8C PO (08:45)
[2017-10-04] MEDS ORDERED: TIZA4TAB3 PO (08:45)
[2017-10-04] MEDS ORDERED: FURO20TA4 PO ×2 (08:45→11:32)
[2017-10-04] MEDS: meTOprolol TARTRATE 25 MG (LOPRESSOR) TABLET PO SCH ×2 (08:47→19:32)
[2017-10-04] MEDS ORDERED: NS IV 500 ML 500 ML IV SCH (10:00)
[2017-10-04] MEDS ORDERED: LEVO25TA5 PO (11:32)
[2017-10-04] MEDS ORDERED: ENALAPRIL (11:32)
--- NOTE | 2017-10-04 12:11 | History & Physicial (CHS) ---
HPI History of Present Illness: 62 yo female presented to ER with central chest pain radiating to back and left shoulder and arm starting around 7:30 last night. She feels better this morning but does still have pain. She has chronic transfusion dependent anemia thought to be related to GI bleeding but with poorly defined source. She also has underlying paroxysmal atrial fibrillation and congestive heart failure and was on anticoagulation in the past but had rapid worsening of her anemia so she is no longer taking. She also cannot tolerate statins or ezetimibe. She has had cough x 3 months, chronic nausea and vomited last night and has had diarrhea ever since the anemia issues started. Source: patient Date seen by provider: Oct 04, 2017 Time Seen by Provider: 11:30 Attending Physician Tomasa Jimenez MD PCP Carla Wilson MD Consult Date of Admission Oct 03, 2017 at 11:50 pm Home Medications Home Medications Reviewed patient Home Medication Reconciliation performed by pharmacy medication reconciliations layout technician and/or nursing. Patients Allergies have been reviewed. Allergies Coded Allergies: Fjjpsjl-Zgs-Wlz Reductase Inhibitor (Verified Allergy, Intermediate, GI UPSET, N/V, 01/01/17) cefadroxil (Unverified Allergy, Mild, 01/01/17) diltiazem (Verified Allergy, Unknown, mouth burning and swelling, 02/23/17) GIE-Mltgpl-Noxalr Hx Patient Social History Alcohol Use: Denies Use Recreational Drug Use: No Smoking Status: Former Smoker Type Used: Cigarettes Recent Foreign Travel: No Contact w/other who traveled: No Recent Hopitalizations: No Recent Infectious Disease Expo: No Physical Abuse Screen: No Sexual Abuse: No Immunizations Up To Date Tetanus Booster (TDap): Unknown Date of Pneumonia Vaccine: Jun 23, 2016 Date of Influenza Vaccine: Mar 15, 2017 Past Medical History PMHx: Paroxysmal Atrial fibrillation CAD NIDDM Chronic Microcytic anemia, transfusion dependent HTN HLD CHF Family Medical History Significant Family History: Hypertension, Stroke Family History: Arthritis G8 BROTHER Completed stroke 19 MOTHER FH: anemia 19 MOTHER FH: lupus G8 SISTER FH: throat cancer 19 FATHER Hypertension G8 SISTER Myocardial infarction 19 MOTHER Thyroid disease 19 MOTHER G8 SISTER Review of Systems (CHC) Constitutional: No fever EENTM: No nose congestion Respiratory: cough, short of breath Cardiovascular: chest pain Gastrointestinal: No abdominal pain; diarrhea, nausea, vomiting Genitourinary: no symptoms reported Musculoskeletal: no symptoms reported Skin: no symptoms reported Psychiatric/Neurological: No Symptoms Reported Reviewed Test Results Reviewed Test Results Lab Laboratory Tests Test 10/03/17 23:09 10/04/17 01:26 10/04/17 04:40 10/04/17 10:39 Range/Units White Blood Count 6.2 7.4 4.3-11.0 10^3/uL Red Blood Count 2.45 L 2.44 L 4.35-5.85 10^6/uL Hemoglobin 7.4 L 7.4 L 11.5-16.0 G/DL Hematocrit 24 L 24 L 35-52 % Mean Corpuscular Volume 100 H 100 H 80-99 FL Mean Corpuscular Hemoglobin 30 30 25-34 PG Mean Corpuscular Hemoglobin Concent 30 L 31 L 32-36 G/DL Red Cell Distribution Width 15.8 H 16.1 H 10.0-14.5 % Platelet Count 192 207 130-400 10^3/uL Mean Platelet Volume 9.5 9.4 7.4-10.4 FL Neutrophils (%) (Auto) 80 H 80 H 42-75 % Lymphocytes (%) (Auto) 11 L 10 L 12-44 % Monocytes (%) (Auto) 7 8 0-12 % Eosinophils (%) (Auto) 2 1 0-10 % Basophils (%) (Auto) 0 0 0-10 % Neutrophils # (Auto) 5.0 6.0 1.8-7.8 X 10^3 Lymphocytes # (Auto) 0.7 L 0.7 L 1.0-4.0 X 10^3 Monocytes # (Auto) 0.4 0.6 0.0-1.0 X 10^3 Eosinophils # (Auto) 0.1 0.1 0.0-0.3 10^3/uL Basophils # (Auto) 0.0 0.0 0.0-0.1 10^3/uL Prothrombin Time 14.1 12.2-14.7 SEC INR Comment 1.1 0.8-1.4 Activated Partial Thromboplast Time 29 24-35 SEC Sodium Level 138 137 135-145 MMOL/L Potassium Level 5.0 5.5 H 3.6-5.0 MMOL/L Chloride Level 104 106 98-107 MMOL/L Carbon Dioxide Level 21 24 21-32 MMOL/L Anion Gap 13 7 5-14 MMOL/L Blood Urea Nitrogen 28 H 26 H 7-18 MG/DL Creatinine 1.55 H 1.29 0.60-1.30 MG/DL Estimat Glomerular Filtration Rate 34 42 BUN/Creatinine Ratio 18 20 Glucose Level 448 *H 367 H 70-105 MG/DL Calcium Level 9.5 9.2 8.5-10.1 MG/DL Magnesium Level 2.3 1.8-2.4 MG/DL Total Bilirubin 0.5 0.5 0.1-1.0 MG/DL Aspartate Amino Transf (AST/SGOT) 30 34 5-34 U/L Alanine Aminotransferase (ALT/SGPT) 19 19 0-55 U/L Alkaline Phosphatase 68 60 40-136 U/L Myoglobin 39.0 10.0-92.0 NG/ML Troponin I < 0.30 1.49 *H <0.30 NG/ML Total Protein 7.5 7.2 6.4-8.2 GM/DL Albumin 3.9 3.8 3.2-4.5 GM/DL Glucometer 389 H 354 H 70-110 MG/DL Radiology CXR 10/03: DRAFT IMPRESSION: 1. Cardiomegaly with increasing pulmonary venous congestion. 2. Increasing bibasilar atelectasis or infiltrate. Physical Exam-(CHC) Physical Exam Vital Signs VS - Last 72 Hours, by Label 10/03/17 10/03/17 10/03/17 10/04/17 22:10 22:10 22:44 00:30 Temp 98.0 Pulse 115 110 Resp 24 22 B/P (MAP) 194/91 (125) 178/73 Pulse Ox 91 95 95 O2 Delivery Room Air Nasal Cannula Nasal Cannula Nasal Cannula O2 Flow Rate 2.0 2.00 2.00 10/04/17 10/04/17 10/04/17 10/04/17 00:40 00:50 01:17 01:18 Temp 98.0 Pulse 107 92 93 Resp 22 B/P (MAP) 201/89 (126) 180/78 (112) Pulse Ox 93 O2 Delivery Nasal Cannula Nasal Cannula O2 Flow Rate 2.00 2.00 10/04/17 10/04/17 10/04/17 10/04/17 01:32 01:32 04:00 04:10 Temp 98.2 Pulse 92 90 Resp 22 B/P (MAP) 140/64 (89) Pulse Ox 92 92 89 91 O2 Delivery Nasal Cannula Nasal Cannula Nasal Cannula O2 Flow Rate 2.00 2.00 3.00 10/04/17 10/04/17 10/04/17 10/04/17 07:00 08:00 09:00 10:08 Temp 97.2 98.2 Pulse 86 87 82 Resp 18 B/P (MAP) 149/65 (93) 169/83 Pulse Ox 93 95 O2 Delivery Nasal Cannula Nasal Cannula Nasal Cannula O2 Flow Rate 2.00 3.00 3.00 10/04/17 10/04/17 10/04/17 10:23 11:57 12:02 Temp 97.6 97.6 97.6 Pulse 80 79 79 Resp 16 18 B/P (MAP) 160/84 164/75 164/75 Pulse Ox 95 O2 Delivery Nasal Cannula O2 Flow Rate 3.00 Capillary Refill : Less Than 3 SecondsLess Than 3 Seconds General Appearance: no apparent distress Respiratory: lungs clear, decreased breath sounds Cardiovascular: regular rate, rhythm, systolic murmur Gastrointestinal: normal bowel sounds, non tender, soft Extremities: pedal edema (trace) Neurologic/Psychiatric: alert, normal mood/affect Skin: normal color, warm/dry Assessment/Plan Assessment/Plan Admission Status: Observation (1) Chest pain Status: Acute Assessment & Plan: Cardiology consulted, has had recent similar episodes suspected to be strain related to her anemia. Troponin elevated this am, blood transfusion ordered per Hematology. Last cath 01/2017 with moderate disease throughout including 50-60% in stent restenosis of right coronary, but given her intolerance to antiplatelets and severe anemia, continued conservative management recommended. EF 60% at that time with elevated diastolic pressure. Qualifiers: Qualified Codes: R07.9 - Chest pain, unspecified (2) Transfusion-dependent anemia Status: Chronic Assessment & Plan: Hematology consulted. Hgb 7.4 on admit and stable this am, but with elevated troponin, transfusion being done currently. Thought to be due to GI bleeding, although no definitive source has been found, continue BID PPI and home carafate. Transfusing 2 units per Hematology recommendations. (3) Type 2 diabetes mellitus with hyperglycemia Status: Chronic (4) GI bleeding Status: Chronic Assessment & Plan: Poorly defined, continue BID PPI and home carafate. EGD/ colonoscopy 07/[address] Cardenas showed severe gastritis, duodenal, cecal and ascending colon polyps and divericulosis and internal hemorrhoids, no active bleeding. She reports she believes she has been referred to GI at . (5) Hypertension Status: Chronic Assessment & Plan: Metoprolol per Cardiology recommendations, holding home metoprolol. Reports being on enalapril, but no record of filling found. Qualifiers: Qualified Codes: I10 - Essential (primary) hypertension (6) Hypothyroidism Status: Chronic Assessment & Plan: Resume home levothyroxine (225 mcg- she reports recently 25 mcg was added to her 200 mcg dose by Hematology) (7) Atrial fibrillation Status: Chronic Assessment & Plan: Unable to tolerate anti-coagulation due to severe anemia. Rate normal this morning. Qualifiers: Qualified Codes: I48.0 - Paroxysmal atrial fibrillation (8) DVT prophylaxis Status: Acute Assessment & Plan: SCDs. Cannot tolerate pharmacologic anti-coagulation. Clinical Quality Measures AMI/AHF: ASA po Prior to arrival: Yes DVT/VTE Risk/Contraindication: Risk Factor Score Per Nursin RFS Level Per Nursing on Admit: 3=High TOMASA JIMENEZ MD Oct 04, 2017 12:11 pm
[2017-10-04] MEDS: SUCRALFATE 1 GM (CARAFATE) TAB PO SCH ×3 (13:33→19:32)
--- NOTE | 2017-10-04 14:45 | Consultation-Cardiology ---
HPI-Cardiology Cardiology Consultation: Date of Consultation 10/04/17 Date of Admission Attending Physician Juliet Jimenez MD Admitting Physician Crala Wilson MD Consulting Physician Wei JORGE MD HPI: Time Seen by Provider: 14:35 Chief Complaint: Chest pain This is a 62-year-old lady who presents with severe chest pain. Substernal. It gradually improved with nitroglycerin. She has history of significant anemia and is under treatment with Dr. [facility]wood in the [facility]. No source of bleeding has been found. Her cardiac history includes a drug-eluting stent in the proximal RCA in 2009. Another angiography done in February, by Dr. Kebede showed diffuse moderate coronary disease with stenosis up to approximately 50 percent in all coronary vessels. Normal EF. Elevated LVEDP suggesting diastolic dysfunction. No significant valvular heart disease. She also had an episode of atrial fibrillation for 2 hours in 2009. A Holter monitor done for atrial fibrillation showed episodes of paroxysmal SVT for 10 seconds with no evidence of atrial fibrillation. She has history of diabetes. She is also intolerant to statins. She has tried pravastatin, lovastatin and simvastatin and will get significant nausea and vomiting and muscle aches with all 3 statins and had to discontinue. She is currently taking fish oil for hyperlipidemia and CAD. The patient also complains of occasional shortness of breath especially with exertion. On 01/30/2017 Cardiac catheterization was performed which showed atleast moderate diffuse disease. She has been diagnosed with liver cirrhosis and portal hypertension. She continues to have anemia and received blood transfusions. Eliquis was stopped because of significant anemia and probable blood loss. Patient also stopped taking PCSK 9 inhibitor. Review of Systems-Cardiology Review of Systems Constitutional: As described under HPI; No As described under HPI, No no symptoms reported, No chills, No fever, No lightheadedness Eyes: No As described under HPI, No no symptoms reported, No blindness, No blurred vision, No contact lenses, No drainage, No decreased acuity, No foreign body sensation, No pain, No vision change Ears/Nose/Throat: No As described under HPI, No no symptoms reported, No chronic hearing loss, No ear discharge, No ear pain, No nasal drainage, No ulcerations Respiratory: No no symptoms reported; As described under HPI; No As described under HPI, No cough, No orthopnea, No shortness of breath, No SOB with excertion Cardiovascular: No no symptoms reported; As described under HPI; No As described under HPI; chest pain; No edema, No irregular heart rate, No lightheadedness, No palpitations Gastrointestinal: No no symptoms reported, No As described under HPI, No abdomen distended, No abdominal pain, No blood streaked bowels, No constipation , No diarrhea, No nausea, No vomiting, No stool coloration changes Genitourinary: No As described under HPI, No burning, No dysuria, No discharge , No frequency, No flank pain, No hematuria, No urgency : Yes : No Musculoskeletal: No no symptoms reported, No As describe under HPI, No back pain, No gout, No joint pain, No joint swelling, No muscle pain, No muscle stiffness, No neck pain, No other Skin: No no symptoms reported, No As described under HPI, No change in color, No change in hair/nails, No dryness, No lesions, No lumps, No rash, No other, No skin related problems, No ulcerations, No rash on exposed areas, No ulcerations on exposed areas Psychiatric/Neurological: No anxiety, No depression, No seizure, No focal weakness, No syncope Hematologic: anemia; No bleeding abnormalities All Other Systems Reviewed Negative Unless Noted: Yes WQA-Dvheba-Ptiqkh Hx Patient Social History Alcohol Use: Denies Use Recreational Drug Use: No Smoking Status: Former Smoker Type Used: Cigarettes Recent Foreign Travel: No Recent Infectious Disease Expo: No Hospitalization with Isolation: Denies Physical Abuse Screen: No Sexual Abuse: No Immunizations Up To Date Tetanus Booster (TDap): Unknown Date of Pneumonia Vaccine: Jun 23, 2016 Date of Influenza Vaccine: Mar 15, 2017 Past Medical History PMH As described under Assessment. Family Medical History Family Medical History: Does not report fam h/o early CAD or SCD Family History: Arthritis G8 BROTHER Completed stroke 19 MOTHER FH: anemia 19 MOTHER FH: lupus G8 SISTER FH: throat cancer 19 FATHER Hypertension G8 SISTER Myocardial infarction 19 MOTHER Thyroid disease 19 MOTHER G8 SISTER Allergies and Home Medications Allergies Coded Allergies: Rrwmpcs-Ldb-Def Reductase Inhibitor (Verified Allergy, Intermediate, GI UPSET, N/V, 01/01/17) cefadroxil (Unverified Allergy, Mild, 01/01/17) diltiazem (Verified Allergy, Unknown, mouth burning and swelling, 02/23/17) Home Medications Cetirizine HCl 10 Mg Tablet, 10 MG PO DAILY, (Reported) Folic Acid 0.8 Mg Capsule, 0.8 MG PO DAILY, (Reported) Furosemide 20 Mg Tablet, 20 MG PO HS, (Reported) Glimepiride 2 Mg Tablet, 2 MG PO BID, (Reported) Gluc 2Kcl/Chondr/Caty Hy/Hy AC 1 Each Capsule, 1 TAB PO BID, (Reported) Levothyroxine Sodium 200 Mcg Tablet, 200 MCG PO DAILY, (Reported) TAKES ALONG WITH LEVOTHYROXINE 200 MCG Levothyroxine Sodium 25 Mcg Tablet, 25 MCG PO DAILY, (Reported) TAKES ALONG WITH LEVOTHYROXINE 200 MCG Metformin HCl 1,000 Mg Tablet, 1,000 MG PO BID, (Reported) Metoprolol Succinate 100 Mg Tab.er.24h, 100 MG PO HS, (Reported) Metoprolol Succinate 50 Mg Tab.er.24h, 50 MG PO AM, (Reported) Nitroglycerin 0.4 Mg Tab.subl, 0.4 MG PO UD PRN for CHEST PAIN, (Reported) Omeprazole 40 Mg Capsule.dr, 40 MG PO BID, (Reported) Ondansetron HCl 8 Mg Tablet, 8 MG PO Q8H PRN for NAUSEA/VOMITING-1ST LINE, ( Reported) Promethazine HCl 25 Mg Tablet, 25 MG PO Q6H PRN for NAUSEA/VOMITING-4TH LINE, ( Reported) Sucralfate 1 Gm Tablet, 1 GM PO QID, (Reported) Tizanidine HCl 4 Mg Tablet, 4 MG PO TID PRN for MUSCLE SPASMS, (Reported) Tramadol HCl 50 Mg Tablet, 50 MG PO TID PRN for PAIN-MODERATE, (Reported) Patient Home Medication List Home Medication List Reviewed: Yes Physical Exam-Cardiology Physical Exam Vital Signs/I&O 10/04/17 10/04/17 10/04/17 10/04/17 04:00 04:10 07:00 08:00 Temp 98.2 97.2 Pulse 90 86 87 Resp B/P (MAP) 140/64 (89) 149/65 (93) Pulse Ox 89 91 93 O2 Delivery Nasal Cannula Nasal Cannula Nasal Cannula O2 Flow Rate 2.00 3.00 2.00 10/04/17 10/04/17 10/04/17 10/04/17 09:00 10:08 10:23 11:57 Temp 98.2 97.6 97.6 Pulse 82 80 79 Resp 18 16 18 B/P (MAP) 169/83 160/84 164/75 Pulse Ox 95 95 O2 Delivery Nasal Cannula Nasal Cannula Nasal Cannula O2 Flow Rate 3.00 3.00 3.00 10/04/17 10/04/17 10/04/17 10/04/17 12:00 12:02 12:14 13:00 Temp 98.2 97.6 97.9 Pulse 82 79 79 83 Resp 20 B/P (MAP) 176/81 (112) 164/75 139/74 Pulse Ox 95 O2 Delivery Nasal Cannula O2 Flow Rate 2.00 Capillary Refill : Less Than 3 SecondsLess Than 3 Seconds Constitutional: appears stated age, AAO x 3; No apparent distress; well- developed, well-nourished HEENT: PERRL; No normal ENT inspection, No TMs normal, No pharynx normal, No scleral icterus (R), No scleral icterus (L), No pale conjunctivae (R), No pale conjunctivae (L), No photophobia, No TM abnormal (R), No TM abnormal (L), No pharyngeal erythema, No tonsillar exudate, No other, No discharge, No EOMI; hearing is well preserved; No hard of hearing; oral hygience is good; No ulceration, No xanthelasmas are seen Neck: No non-tender, No full range of motion, No supple, No normal inspection, No carotid bruit, No limited range of motion, No lymphadenopathy (R), No lymphadenopathy (L), No tender lateral, No tender midline, No thyromegaly, No other; carotid pulses are 2 + bilaterally; No with good upstrokes Respiratory: No accessory muscle use, No respiratory distress, No chest tender , No chest expansion is symmetric; chest is bilaterally symmetric; No lungs clear to percussion; lungs clear to auscultation; No crackles, No rhonchi, No rales, No stridor, No wheezing, No pleural rub, No other Cardiovascular: regular rate-rhythm; No irregularly irregular, No extra beats, No parasternal heave is noted, No JVD, No edema, No bradycardia, No tachycardia , No point of maximal impulse, No cardiac thrills are palpable; S1 and S2; No gallop/S3, No gallop/S4, No diastolic murmur, No systolic murmur, No friction rub, No click, No other Gastrointestinal: No tender, No soft, No round, No distended, No pulsatile mass , No organomegaly, No guarding, No rebound, No tenderness, No hernia, No mass, No audible bowel sounds, No abnormal bowel sounds, No abdominal bruits, No spleenomegaly, No other Rectal: deferred Extremities: No normal range of motion, No non-tender, No normal inspection, No pedal edema, No calf tenderness, No normal capillary refill, No pelvis stable , No calf tenderness, No inflammation, No pedal edema, No slow capillary refill , No swelling, No other, No abrasion, No clubbing, No cyanosis, No ecchymosis, No laceration, No no lower extremity edema bilateral, No significant edema, No tenderness, No wound Neurologic/Psychiatric: No professor of criminal justice II-XII nml as tested; no motor/sensory deficits , alert, normal mood/affect, oriented x 3; No abnormal cerebellar tests, No abnormal professor of criminal justice II-XII, No abnormal gait, No aphasia, No EOM palsy, No facial droop , No motor weakness, No sensory deficit, No depressed affect, No disoriented x 3 , No other, No grossly intact; power is 5/5 both on sides Skin: No normal color, No warm/dry, No cyanosis, No cool, No diaphoresis, No damp, No ecchymosis, No jaundice, No mottled, No pallor, No rash, No tattoos/ piercings, No ulcerations, No rash on exposed areas, No ulcerations on exposed areas, No other Data Review Labs Laboratory Tests 10/03/17 23:09: White Blood Count 6.2, Red Blood Count 2.45L, Hemoglobin 7.4L, Hematocrit 24L, Mean Corpuscular Volume 100H, Mean Corpuscular Hemoglobin 30, Mean Corpuscular Hemoglobin Concent 30L, Red Cell Distribution Width 15.8H, Platelet Count 192, Mean Platelet Volume 9.5, Neutrophils (%) (Auto) 80H, Lymphocytes (%) (Auto) 11L , Monocytes (%) (Auto) 7, Eosinophils (%) (Auto) 2, Basophils (%) (Auto) 0, Neutrophils # (Auto) 5.0, Lymphocytes # (Auto) 0.7L, Monocytes # (Auto) 0.4, Eosinophils # (Auto) 0.1, Basophils # (Auto) 0.0, Prothrombin Time 14.1, INR Comment 1.1, Activated Partial Thromboplast Time 29, Sodium Level 138, Potassium Level 5.0, Chloride Level 104, Carbon Dioxide Level 21, Anion Gap 13, Blood Urea Nitrogen 28H, Creatinine 1.55H, Estimat Glomerular Filtration Rate 34 , BUN/Creatinine Ratio 18, Glucose Level 448*H, Calcium Level 9.5, Magnesium Level 2.3, Total Bilirubin 0.5, Aspartate Amino Transf (AST/SGOT) 30, Alanine Aminotransferase (ALT/SGPT) 19, Alkaline Phosphatase 68, Myoglobin 39.0, Troponin I < 0.30, Total Protein 7.5, Albumin 3.9 10/04/17 01:26: Glucometer 389H 10/04/17 04:40: White Blood Count 7.4, Red Blood Count 2.44L, Hemoglobin 7.4L, Hematocrit 24L, Mean Corpuscular Volume 100H, Mean Corpuscular Hemoglobin 30, Mean Corpuscular Hemoglobin Concent 31L, Red Cell Distribution Width 16.1H, Platelet Count 207, Mean Platelet Volume 9.4, Neutrophils (%) (Auto) 80H, Lymphocytes (%) (Auto) 10L , Monocytes (%) (Auto) 8, Eosinophils (%) (Auto) 1, Basophils (%) (Auto) 0, Neutrophils # (Auto) 6.0, Lymphocytes # (Auto) 0.7L, Monocytes # (Auto) 0.6, Eosinophils # (Auto) 0.1, Basophils # (Auto) 0.0, Sodium Level 137, Potassium Level 5.5H, Chloride Level 106, Carbon Dioxide Level 24, Anion Gap 7, Blood Urea Nitrogen 26H, Creatinine 1.29, Estimat Glomerular Filtration Rate 42, BUN/ Creatinine Ratio 20, Glucose Level 367H, Calcium Level 9.2, Total Bilirubin 0.5 , Aspartate Amino Transf (AST/SGOT) 34, Alanine Aminotransferase (ALT/SGPT) 19, Alkaline Phosphatase 60, Troponin I 1.49*H, Total Protein 7.2, Albumin 3.8 10/04/17 10:39: Glucometer 354H ECG Impression ECG Initial ECG Rhythm: Normal Sinus Initial ECG Impression: Nonspecific Changes A/P-Cardiology Assessment/Admission Diagnosis Non-STEMI, Anemia, Diabetes, Acute kidney injury, Hyperkalemia, Statin intolerance, Atrial fibrillation Plan Non-STEMI, due to hemoglobin 7.4, antiplatelet and antithrombotic therapy is contraindicated. Hematology service/Dr. Grace is following. I will discuss with Dr. Grace to see if there is something that we can give. In the meantime we will restart beta blockers, start isosorbide mononitrate. Low-dose Crestor. Her cardiac history includes a drug-eluting stent in the proximal RCA in 2009. Another angiography done in February, by Dr. Kebede showed diffuse moderate coronary disease with stenosis up to approximately 50 percent in all coronary vessels. Normal EF. Elevated LVEDP suggesting diastolic dysfunction. No significant valvular heart disease. she is already on Eliquis therefore will discontinue aspirin. On 01/2017, She presented recently with chest pain, shortness of breath, atrial fibrillation and positive troponin. Dr. Sosa did an angiogram on 01/30/2017 which showed 50-60 percent distal left main disease, diffuse moderate disease in the LAD. Left circumflex artery had 50-60 percent ostial stenosis and mid circumflex artery has 60-70 percent stenosis. Right coronary artery has a patent stent with 50-60 percent in-stent restenosis. Anemia, source of anemia is still unclear. Patient has had numerous upper and lower endoscopies with no clear etiology. Dr. Grace following. Currently receiving packed RBCs. Diabetes, continue outpatient therapy. Acute kidney injury, creatinine on admission was 1.5. Improved today. We will continue to monitor. Hyperkalemia, potassium 5.5. Hemolyzed specimen? Will watch closely. Statin intolerance, patient could not tolerate numerous statins including pravastatin, lovastatin and simvastatin. She had significant nausea and vomiting and muscle aches with all 3 statins. She was started on ezetimibe her LDL was still 129 on ezetimibe therefore she was started on Repatha, however it was not approved therefore she stopped taking Repatha as well. I will start low dose crestor. Atrial fibrillation, currently in sinus rhythm. Previously has history of atrial fibrillation and was started on Eliquis. However because of severe anemia Eliquis was discontinued. She continues to be on beta nneka. She also had an episode of atrial fibrillation for 2 hours in 2009. A Holter monitor done for atrial fibrillation showed episodes of paroxysmal SVT for 10 seconds with no evidence of atrial fibrillation. event monitor shows numerous short episodes of atrial tachycardia which are likely atrial fibrillation. Eliquis was previously started however due to anemia and questionable GI bleed Eliquis and aspirin was discontinued. Complicated patient with numerous medical issues. Thank you for your consultation. Please call me if you have any questions. Estela Jorge MD, FACP, FACC, FSCAI, FHRS, CCDS Interventional Cardiology Cardiac Electrophysiology Vascular Medicine and Endovascular Interventions Clinical Quality Measures AMI/AHF: ASA po Prior to arrival: Yes DVT/VTE Risk/Contraindication: Risk Factor Score Per Nursin RFS Level Per Nursing on Admit: 3=High Wei JORGE MD Oct 04, 2017 2:45 pm
--- NOTE | 2017-10-04 15:02 | CONSULTATION REPORT ---
DATE OF SERVICE: 10/04/2017 REFERRING PHYSICIAN: Juliet Jimenez MD. ROOM NUMBER: The patient is admitted to room 416. IMPRESSION: 1. A 62-year-old female admitted with chest pain and shortness of breath and found to have a non-Q-wave RI. 2. History of anemia due to chronic GI blood loss over several years. The patient has had multiple EGDs and colonoscopies as well as a capsule endoscopy showing significant gastritis and abnormal lesions in the small bowel, which could be potential sites for bleeding. 3. History of coronary artery disease with previous anticoagulation causing significant worsening of GI bleed and anemia. 4. Diabetes mellitus with poor control. 5. Morbid obesity. RECOMMENDATIONS: 1. Continue management of non-Q-wave RI as you are doing. The patient has been started on baby aspirin. We will continue to monitor this closely as she has had worsened bleeding even with aspirin in the past. 2. Because of her worsening symptoms and anemia, I will transfuse her with two units of packed red blood cells and monitor the hemoglobin serially to maintain her hemoglobin level more than 8. 3. The patient had just completed an opinion at the [facility] with the hematology who concurred with the management so far, but also recommended another evaluation by GI to see if something could be done to manage the GI bleeding better. 4. Optimize cardiac medications regarding the coronary artery disease. 5. Better control of blood sugars, which could worsen her coronary artery disease and kidney disease. 6. I will arrange for outpatient parenteral iron therapy to try to maintain adequate iron store. 7. Her overall prognosis is poor. BRIEF HISTORY: The patient is a 62-year-old female, who is well known to me with history of chronic GI bleeding. This has caused a significant iron deficiency anemia and she has required transfusions and parenteral iron therapy frequently. She also has coronary artery disease and stent placement requiring anticoagulation. This significantly increased her GI bleeding during that period. Even nonsteroidal agents and aspirin have caused her to bleed more and she has been weaned off all of these agents for some time. She has had numerous EGDs and colonoscopies, all of which showing moderate to severe gastritis in spite of proton pump inhibitor, sucralfate, etc. She also completed a capsule endoscopy in the past, which showed erythematous regions of small bowel without active bleeding. PAST MEDICAL HISTORY: Significant for hypothyroidism for which she is on replacement. Chronic arthritis of major joints requiring nonsteroidal agents in the past. Chronic gastrointestinal bleeding for the past several years in spite of stopping all the nonsteroidals and blood thinners. Coronary artery disease with RI in the past and stent placement. Diabetes mellitus type 2 with poor control. Hypertension and obesity. PRIOR SURGERIES: Include tonsillectomy and adenoidectomy in the distant past, tubal ligation, multiple EGDs and colonoscopies. Cardiac catheterization with stent placement approximately two years ago, left ankle reconstruction and knee arthroscopy. FAMILY HISTORY: Significant for coronary artery disease, diabetes mellitus, hypercholesterolemia and CVAs in her mother. Her two sisters had malignancies one with breast cancer. Her father was also diagnosed with malignancy. Sister has hypertension, coronary artery disease and hyperlipidemia. Brother was diagnosed with malignancy. Another brother with coronary artery disease and hypertension. Maternal aunt with coronary artery disease. Paternal grandmother had colon cancer and paternal grandfather had an unknown malignancy. SOCIAL HISTORY: The patient is and lives near [facility]. 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 She has smoked cigarettes previously for 10 years, but quit in 1981, uses alcohol socially, but no binge drinking. No history of recreational drug use. PHYSICAL EXAMINATION: GENERAL: Today showed an elderly female, obese, awake and oriented, in moderate distress due to the chest pain and shortness of breath. VITAL SIGNS: Temperature was 97.6, pulse rate of 80, respirations 16, blood pressure 160/84 with oxygen saturation 95% on 3 liters of oxygen by nasal cannula. HEENT: Normocephalic, extraocular muscles intact, conjunctivae pale, oral mucosa moist. NECK: Supple, with no JVD. No cervical, supraclavicular or axillary lymphadenopathy palpable. CHEST: Symmetrical. LUNGS: Fairly clear to auscultation without wheezes or rales. CARDIOVASCULAR: Regular rate and rhythm. No murmurs or gallops heard. ABDOMEN: Obese and soft with mild tenderness at the epigastric area without guarding or rebound. No hepatosplenomegaly or other masses palpable. EXTREMITIES: Showed trace edema around the ankles. NEUROLOGIC: Showed no focal motor deficits. LABORATORY DATA: CBC done today showed white count of 7.4, hemoglobin 7.4, MCV 100, RDW of 16.1 and platelet count 207,000. Neutrophil count was 6.0 and lymphocyte count 0.7. Chemistry panel done today showed relatively normal electrolytes except potassium level of 5.5. BUN was 26 and creatinine 1.29 with GFR 42 mL per minute. Nonfasting blood glucose was 367. Liver function studies were within normal limits. Troponin level done at the time of admission last night was less than 0.3, but today morning, this was elevated at 1.49. Chest x-ray done at the time of admission showed cardiomegaly with increasing pulmonary venous congestion, increasing bibasilar atelectasis. Thank you for allowing me to participate in this patient's care. I will follow the patient with you and make appropriate recommendations. Job ID: [id number] DocumentID: [id number] Dictated Date: 10/04/2017 11:49:52 Employee Welfare Manager Date: 10/04/2017 15:01:40 Dictated By: SHIREEN AGARWAL MD
[2017-10-04 16:30] LABS: HEMOGLOBIN 8.8 G/DL (11.5-16.0)
[2017-10-04] MEDS: PANTOPRAZOLE 40 MG (PROTONIX) TAB PO SCH (19:32)
[2017-10-04] MEDS ORDERED: ROSUVASTATIN 5 MG (CRESTOR) TABLET PO SCH (21:00)
[2017-10-04] MEDS ORDERED: FUROSEMIDE 20 MG (LASIX) TAB PO SCH (21:00)
[2017-10-05] VITALS: BP 190/74
[2017-10-05] MEDS ORDERED: ACETAMINOPHEN 500 MG TAB (TYLENOL) PO PRN (00:30)
[2017-10-05] MEDS ORDERED: meTOprolol TARTRATE 25 MG (LOPRESSOR) TABLET PO ONE (00:30)
[2017-10-05 00:54] LABS: BILIRUBIN,URINE NEGATIVE (NEGATIVE); CLARITY,URINE CLEAR; COLOR,URINE YELLOW; GLUCOSE, URINE (UA) 2+ (NEGATIVE); KETONES,URINE NEGATIVE (NEGATIVE); LEUKOCYTE ESTERASE ,URINE 1+ (NEGATIVE); NITRITE,URINE NEGATIVE (NEGATIVE); PH,URINE 5 (5-9); PROTEIN,URINE 1+ (NEGATIVE); UROBILINOGEN,URINE NORMAL (NORMAL)
[2017-10-05 01:07] LABS: BACTERIA,URINE MODERATE /HPF
[2017-10-05 04:00] VITALS: BP 147/67
[2017-10-05] MEDS: inSUlin ASPART (NovoLOG) 1 UNIT/0.01 ML (CHARGE PER UNIT) SC SCH ×2 (05:52→11:20)
[2017-10-05 05:55] LABS: HEMOGLOBIN 8.1 G/DL (11.5-16.0); MEAN PLATELET VOLUME 10.2 FL (7.4-10.4); RED BLOOD COUNT 2.69 10^6/uL (4.35-5.85); RED CELL DISTRIBUTION WIDTH 16.2 % (10.0-14.5); RETICULOCYTE % 4.89 % (0.50-2.40); WHITE BLOOD COUNT 7.7 10^3/uL (4.3-11.0)
[2017-10-05 06:07] LABS: CREATININE SERUM 1.14 MG/DL (0.60-1.30); POTASSIUM 4.7 MMOL/L (3.6-5.0)
[2017-10-05] MEDS ORDERED: LEVOTHYROXINE 25 MCG (LEVOTHROID) TAB PO SCH (06:30)
[2017-10-05] MEDS ORDERED: LEVOTHYROXINE 100 MCG (LEVOTHROID) TAB PO SCH (06:30)
[2017-10-05 08:30] VITALS: BP 191/73
[2017-10-05] MEDS: PANTOPRAZOLE 40 MG (PROTONIX) TAB PO SCH (08:50)
[2017-10-05] MEDS: meTOprolol TARTRATE 25 MG (LOPRESSOR) TABLET PO SCH (08:50)
[2017-10-05] MEDS: SUCRALFATE 1 GM (CARAFATE) TAB PO SCH ×2 (08:50→12:26)
[2017-10-05] MEDS ORDERED: FOLIC ACID 1 MG TAB PO SCH (09:00)
--- NOTE | 2017-10-05 11:37 | Cardiology Progress Note ---
Cardiology SOAP Progress Note Subjective: No further chest pain Objective: I&O/Vital Signs 10/05/17 10/05/17 10/05/17 10/05/17 00:00 00:36 01:06 01:30 Temp 101.2 101.2 97.6 Pulse 104 105 Resp 20 B/P (MAP) 190/74 (112) Pulse Ox 92 O2 Delivery Nasal Cannula O2 Flow Rate 2.00 10/05/17 10/05/17 10/05/17 10/05/17 02:00 04:00 06:42 07:00 Temp 97.6 97.7 Pulse 83 85 Resp 20 B/P (MAP) 147/67 (93) Pulse Ox 91 92 O2 Delivery Nasal Cannula Nasal Cannula O2 Flow Rate 3.00 3.00 10/05/17 10/05/17 07:57 08:30 Temp 98.2 Pulse 85 Resp 22 B/P (MAP) 191/73 (112) Pulse Ox 92 O2 Delivery Nasal Cannula Nasal Cannula O2 Flow Rate 3.00 3.00 10/05/17 00:00 Intake Total 3450 ml Output Total 400 ml Balance 3050 ml Weight (Pounds): 289 Weight (Ounces): 8.0 Weight (Calculated Kilograms): 131.952470 Constitutional: appears stated age, AAO x 3; No apparent distress; well- developed, well-nourished Respiratory: No accessory muscle use, No respiratory distress, No chest tender , No chest expansion is symmetric; chest is bilaterally symmetric; No lungs clear to percussion; lungs clear to auscultation; No crackles, No rhonchi, No rales, No stridor, No wheezing, No pleural rub, No other Cardiovascular: regular rate-rhythm; No irregularly irregular, No extra beats, No parasternal heave is noted, No JVD, No edema, No bradycardia, No tachycardia , No point of maximal impulse, No cardiac thrills are palpable; S1 and S2; No gallop/S3, No gallop/S4, No diastolic murmur, No systolic murmur, No friction rub, No click, No other Gastrointestional: No tender, No soft, No round, No distended, No pulsatile mass, No organomegaly, No guarding, No rebound, No tenderness, No hernia, No mass, No audible bowel sounds, No abnormal bowel sounds, No abdominal bruits, No spleenomegaly, No other Extremities: No normal range of motion, No non-tender, No normal inspection, No pedal edema, No calf tenderness, No normal capillary refill, No pelvis stable , No calf tenderness, No inflammation, No pedal edema, No slow capillary refill , No swelling, No other, No abrasion, No clubbing, No cyanosis, No ecchymosis, No laceration, No no lower extremity edema bilateral, No significant edema, No tenderness, No wound Neurologic/Psychiatric: No commercial review appraiser II-XII nml as tested; no motor/sensory deficits , alert, normal mood/affect, oriented x 3; No abnormal cerebellar tests, No abnormal commercial review appraiser II-XII, No abnormal gait, No aphasia, No EOM palsy, No facial droop , No motor weakness, No sensory deficit, No depressed affect, No disoriented x 3 , No other, No grossly intact; power is 5/5 both on sides Skin: No normal color, No warm/dry, No cyanosis, No cool, No diaphoresis, No damp, No ecchymosis, No jaundice, No mottled, No pallor, No rash, No tattoos/ piercings, No ulcerations, No rash on exposed areas, No ulcerations on exposed areas, No other Results/Procedures: Labs Laboratory Tests 10/04/17 16:05: Glucometer 318 10/04/17 16:19: Hemoglobin 8.8L, Hematocrit 28L 10/04/17 17:15: Stool Occult Blood Immunoassay POSITIVEH 10/04/17 20:04: Glucometer 318 10/05/17 00:43: Urine Color YELLOW, Urine Clarity CLEAR, Urine pH 5, Urine Specific [place] 1.015L, Urine Protein 1+H, Urine Glucose (UA) 2+H, Urine Ketones NEGATIVE, Urine Nitrite NEGATIVE, Urine Bilirubin NEGATIVE, Urine Urobilinogen NORMAL, Urine Leukocyte Esterase 1+H, Urine RBC (Auto) 1+H, Urine RBC 2-5H, Urine WBC 10 -25H, Urine Squamous Epithelial Cells 2-5, Urine Crystals NONE, Urine Bacteria MODERATEH, Urine Casts NONE, Urine Mucus NEGATIVE, Urine Culture Indicated YES 10/05/17 00:50: Lactic Acid Level 1.46 10/05/17 05:22: White Blood Count 7.7, Red Blood Count 2.69L, Hemoglobin 8.1L, Hematocrit 26L, Mean Corpuscular Volume 97, Mean Corpuscular Hemoglobin 30, Mean Corpuscular Hemoglobin Concent 31L, Red Cell Distribution Width 16.2H, Platelet Count 153, Mean Platelet Volume 10.2, Absolute Reticulocyte Count 132H, Percent Reticulocyte Count 4.89H, Sodium Level 136, Potassium Level 4.7, Chloride Level 104, Carbon Dioxide Level 24, Anion Gap 8, Blood Urea Nitrogen 24H, Creatinine 1.14, Estimat Glomerular Filtration Rate 49, BUN/Creatinine Ratio 21, Glucose Level 362H, Calcium Level 9.0 10/05/17 05:26: Glucometer 349H 10/05/17 11:11: Glucometer 356H A/P: Assessment/Dx: Non-STEMI, Anemia, Diabetes, Acute kidney injury, Hyperkalemia, Statin intolerance, Atrial fibrillation Plan: Non-STEMI, due to hemoglobin 7.4, antiplatelet and antithrombotic therapy is contraindicated. Hematology service/Dr. Grace is following. I discussed at length with Dr. Grace who placed the patient is having active GI bleeding and therefore all antiplatelet and antithrombotic and therapy is contraindicated. On beta blockers, isosorbide mononitrate, low-dose statin. Her cardiac history includes a drug-eluting stent in the proximal RCA in 2009. Another angiography done in February, by Dr. Kebede showed diffuse moderate coronary disease with stenosis up to approximately 50 percent in all coronary vessels. Normal EF. Elevated LVEDP suggesting diastolic dysfunction. No significant valvular heart disease. she is already on Eliquis therefore will discontinue aspirin. On 01/2017, She presented recently with chest pain, shortness of breath, atrial fibrillation and positive troponin. Dr. Sosa did an angiogram on 01/30/2017 which showed 50-60 percent distal left main disease, diffuse moderate disease in the LAD. Left circumflex artery had 50-60 percent ostial stenosis and mid circumflex artery has 60-70 percent stenosis. Right coronary artery has a patent stent with 50-60 percent in-stent restenosis. Anemia, source of anemia is still unclear. Patient has had numerous upper and lower endoscopies with no clear etiology. Dr. Grace following. Received 2 units of PRBCs yesterday however hemoglobin increased from 7.4-8.1 which suggest active blood loss. Diabetes, continue outpatient therapy. Acute kidney injury, creatinine on admission was 1.5. Improved today. We will continue to monitor. Hyperkalemia, potassium 5.5. Hemolyzed specimen? Will watch closely. Statin intolerance, patient could not tolerate numerous statins including pravastatin, lovastatin and simvastatin. She had significant nausea and vomiting and muscle aches with all 3 statins. She was started on ezetimibe her LDL was still 129 on ezetimibe therefore she was started on Repatha, however it was not approved therefore she stopped taking Repatha as well. I will start low dose crestor. Atrial fibrillation, currently in sinus rhythm. Previously has history of atrial fibrillation and was started on Eliquis. However because of severe anemia Eliquis was discontinued. She continues to be on beta nneka. She also had an episode of atrial fibrillation for 2 hours in 2009. A Holter monitor done for atrial fibrillation showed episodes of paroxysmal SVT for 10 seconds with no evidence of atrial fibrillation. event monitor shows numerous short episodes of atrial tachycardia which are likely atrial fibrillation. Eliquis was previously started however due to anemia and questionable GI bleed Eliquis and aspirin was discontinued. Complicated patient with numerous medical issues. Thank you for your consultation. Please call me if you have any questions. Estela Jorge MD, FACP, FACC, FSCAI, FHRS, CCDS Interventional Cardiology Cardiac Electrophysiology Vascular Medicine and Endovascular Interventions Focused Exam Lactate Level 10/05/17 00:50: Lactic Acid Level 1.46 Clinical Quality Measures AMI/AHF: ASA po Prior to arrival: Yes Wei JORGE MD Oct 05, 2017 11:37 am
[2017-10-05 12:39] VITALS: BP 191/73
--- NOTE | 2017-10-05 13:25 | Discharge Summary ---
Diagnosis/Chief Complaint Date of Admission Oct 03, 2017 at 23:50 Date of Discharge 10/05/17 Admission Diagnosis Admission Diagnosis (1) Chest pain Status: Acute Assessment & Plan: Cardiology consulted, has had recent similar episodes suspected to be strain related to her anemia. Troponin elevated this am, blood transfusion ordered per Hematology. Last cath 01/2017 with moderate disease throughout including 50-60% in stent restenosis of right coronary, but given her intolerance to antiplatelets and severe anemia, continued conservative management recommended. EF 60% at that time with elevated diastolic pressure. Qualifiers: Qualified Codes: R07.9 - Chest pain, unspecified (2) Transfusion-dependent anemia Status: Chronic Assessment & Plan: Hematology consulted. Hgb 7.4 on admit and stable this am, but with elevated troponin, transfusion being done currently. Thought to be due to GI bleeding, although no definitive source has been found, continue BID PPI and home carafate. Transfusing 2 units per Hematology recommendations. (3) Type 2 diabetes mellitus with hyperglycemia Status: Chronic (4) GI bleeding Status: Chronic Assessment & Plan: Poorly defined, continue BID PPI and home carafate. EGD/ colonoscopy 07/[address] Cardenas showed severe gastritis, duodenal, cecal and ascending colon polyps and divericulosis and internal hemorrhoids, no active bleeding. She reports she believes she has been referred to GI at . (5) Hypertension Status: Chronic Assessment & Plan: Metoprolol per Cardiology recommendations, holding home metoprolol. Reports being on enalapril, but no record of filling found. Qualifiers: Qualified Codes: I10 - Essential (primary) hypertension (6) Hypothyroidism Status: Chronic Assessment & Plan: Resume home levothyroxine (225 mcg- she reports recently 25 mcg was added to her 200 mcg dose by Hematology) (7) Atrial fibrillation Status: Chronic Assessment & Plan: Unable to tolerate anti-coagulation due to severe anemia. Rate normal this morning. Qualifiers: Qualified Codes: I48.0 - Paroxysmal atrial fibrillation (8) DVT prophylaxis Status: Acute Assessment & Plan: SCDs. Cannot tolerate pharmacologic anti-coagulation. Discharge Diagnosis (1) Chest pain Status: Acute Assessment & Plan: Cardiology consulted, has had recent similar episodes suspected to be strain related to her anemia. Troponin elevated this am, blood transfusion ordered per Hematology. Last cath 01/2017 with moderate disease throughout including 50-60% in stent restenosis of right coronary, but given her intolerance to antiplatelets and severe anemia, continued conservative management recommended. EF 60% at that time with elevated diastolic pressure. : RESOLVED Qualifiers: Qualified Codes: R07.9 - Chest pain, unspecified (2) Transfusion-dependent anemia Status: Chronic Assessment & Plan: Hematology consulted. Hgb 7.4 on admit and stable this am, but with elevated troponin, transfusion being done currently. Thought to be due to GI bleeding, although no definitive source has been found, continue BID PPI and home carafate. Transfusing 2 units per Hematology recommendations. 10/05: S/ P 2 UNITS PRBC, HGB 8.1 (3) Type 2 diabetes mellitus with hyperglycemia Status: Chronic (4) GI bleeding Status: Chronic Assessment & Plan: Poorly defined, continue BID PPI and home carafate. EGD/ colonoscopy 07/[address] Cardenas showed severe gastritis, duodenal, cecal and ascending colon polyps and divericulosis and internal hemorrhoids, no active bleeding. She reports she believes she has been referred to GI at . (5) Hypertension Status: Chronic Assessment & Plan: Metoprolol per Cardiology recommendations, holding home metoprolol. Reports being on enalapril, but no record of filling found. Qualifiers: Qualified Codes: I10 - Essential (primary) hypertension (6) Hypothyroidism Status: Chronic Assessment & Plan: Resume home levothyroxine (225 mcg- she reports recently 25 mcg was added to her 200 mcg dose by Hematology) (7) Atrial fibrillation Status: Chronic Assessment & Plan: Unable to tolerate anti-coagulation due to severe anemia. Rate normal this morning. Qualifiers: Qualified Codes: I48.0 - Paroxysmal atrial fibrillation (8) DVT prophylaxis Status: Acute Assessment & Plan: SCDs. Cannot tolerate pharmacologic anti-coagulation. (9) NSTEMI Status: Acute Assessment & Plan: Pt not candidate for ASA or antiplatelet/anticoagulation due to chronic, severe anemia; low dose crestor 5 mg per cardiology and will see how she tolerates (10) Acute Cystitis Status: Acute Assessment & Plan: asymptomatic, will discharge on amoxicillin 500 mg TID x7 days while C&S pending Chief Complaint/HPI Chief Complaint/HPI 62 yo female presented to ER with central chest pain radiating to back and left shoulder and arm starting around 7:30 last night. She feels better this morning but does still have pain. She has chronic transfusion dependent anemia thought to be related to GI bleeding but with poorly defined source. She also has underlying paroxysmal atrial fibrillation and congestive heart failure and was on anticoagulation in the past but had rapid worsening of her anemia so she is no longer taking. She also cannot tolerate statins or ezetimibe. She has had cough x 3 months, chronic nausea and vomited last night and has had diarrhea ever since the anemia issues started. Discharge Summary-OBS Procedures None. Consultations Discharge Physical Examination Allergies: Coded Allergies: [id number]-[id number] Reductase Inhibitor (Verified Allergy, Intermediate, GI UPSET, N/V, 01/01/17) cefadroxil (Unverified Allergy, Mild, 01/01/17) diltiazem (Verified Allergy, Unknown, mouth burning and swelling, 02/23/17) Vitals & I&Os Intake and Output 10/05/17 00:00 Intake Total 3450 ml Output Total 400 ml Balance 3050 ml Vital Sign - Last 12Hours Date Time Temp Pulse Resp B/P (MAP) Pulse Ox O2 Delivery O2 Flow Rate FiO2 10/05/17 12:39 98.5 81 20 191/73 (112) 94 Nasal Cannula 3.00 General Appearance: Alert, Oriented X3, Cooperative, No Acute Distress HEENT: Atraumatic, PERRLA, EOMI, Mucous Memb Moist/[place] Respiratory: Clear to Auscultation, Normal Air Movement Cardiovascular: Regular Rate, Normal S1, Normal S2, No Murmurs Abdominal: Normal Bowel Sounds, Soft, No Tenderness, No Hepatosplenomegaly Extremities: No Clubbing, No Cyanosis, Normal Pulses Skin: No Rashes, No Significant Lesion Neuro: Normal Speech, Normal Tone, Sensation Intact, Cranial Nerves 3-12 NL Psych/Mental Status: Mental Status NL, Mood NL Hospital Course see final discharge diagnosis Labs Laboratory Tests 10/04/17 16:05: Glucometer 318H 10/04/17 16:19: Hemoglobin 8.8L, Hematocrit 28L 10/04/17 17:15: Stool Occult Blood Immunoassay POSITIVEH 10/04/17 20:04: Glucometer 318H 10/05/17 00:43: Urine Color YELLOW, Urine Clarity CLEAR, Urine pH 5, Urine Specific [place] 1.015L, Urine Protein 1+H, Urine Glucose (UA) 2+H, Urine Ketones NEGATIVE, Urine Nitrite NEGATIVE, Urine Bilirubin NEGATIVE, Urine Urobilinogen NORMAL, Urine Leukocyte Esterase 1+H, Urine RBC (Auto) 1+H, Urine RBC 2-5H, Urine WBC 10 -25H, Urine Squamous Epithelial Cells 2-5, Urine Crystals NONE, Urine Bacteria MODERATEH, Urine Casts NONE, Urine Mucus NEGATIVE, Urine Culture Indicated YES 10/05/17 00:50: Lactic Acid Level 1.46 10/05/17 05:22: White Blood Count 7.7, Red Blood Count 2.69L, Hemoglobin 8.1L, Hematocrit 26L, Mean Corpuscular Volume 97, Mean Corpuscular Hemoglobin 30, Mean Corpuscular Hemoglobin Concent 31L, Red Cell Distribution Width 16.2H, Platelet Count 153, Mean Platelet Volume 10.2, Absolute Reticulocyte Count 132H, Percent Reticulocyte Count 4.89H, Sodium Level 136, Potassium Level 4.7, Chloride Level 104, Carbon Dioxide Level 24, Anion Gap 8, Blood Urea Nitrogen 24H, Creatinine 1.14, Estimat Glomerular Filtration Rate 49, BUN/Creatinine Ratio 21, Glucose Level 362H, Calcium Level 9.0 10/05/17 05:26: Glucometer 349H 10/05/17 11:11: Glucometer 356H Radiology Reviewed CXR 10/03: DRAFT IMPRESSION: 1. Cardiomegaly with increasing pulmonary venous congestion. 2. Increasing bibasilar atelectasis or infiltrate. Discharge Condition at discharge Stable Instructions to patient/family Please see electronic discharge instructions given to patient. Discharge Medications Reviewed and agree with Discharge Medication list on patient's Discharge Instruction sheet Clinical Quality Measures AMI/AHF: ASA po Prior to arrival: Yes DVT/VTE Risk/Contraindication: Risk Factor Score Per Nursin RFS Level Per Nursing on Admit: 3=High Copy Copies To 1: JAMES TORRES MD, MARGARET E DO Oct 05, 2017 13:25
[2017-10-05] MEDS ORDERED: AMOX500C2 PO (13:33)
[2017-10-05] MEDS ORDERED: ROSU5TAB11 PO (13:33)
--- NOTE | 2017-10-05 13:40 | Discharge Instructions ---
Discharge [facility] Discharge Medications New, Converted or Re-Newed RX: Transmitted to Pharmacy New Medications: Amoxicillin (Amoxicillin) 500 Mg Capsule 500 MG PO TIDWM for 7 Days, #21 CAP 0 Refills Rosuvastatin Calcium (Rosuvastatin Calcium) 5 Mg Tablet 5 MG PO HS for 30 Days, #30 TAB 1 Refill Continued Medications: Cetirizine HCl (Cetirizine HCl) 10 Mg Tablet 10 MG PO DAILY, TAB [Enalapril] () Folic Acid (Folic Acid) 0.8 Mg Capsule 0.8 MG PO DAILY, CAP Furosemide (Furosemide) 20 Mg Tablet 20 MG PO HS, TAB Glimepiride (Glimepiride) 2 Mg Tablet 2 MG PO BID, TAB Gluc 2Kcl/Chondr/Caty Hy/Hy AC (Glucosamine & Chondroitin Cap) 1 Each Capsule 1 TAB PO BID, CAP Levothyroxine Sodium (Levothyroxine Sodium) 200 Mcg Tablet 200 MCG PO DAILY, TAB TAKES ALONG WITH LEVOTHYROXINE 200 MCG Levothyroxine Sodium (Levothyroxine Sodium) 25 Mcg Tablet 25 MCG PO DAILY, TAB TAKES ALONG WITH LEVOTHYROXINE 200 MCG Metformin HCl (Metformin HCl) 1,000 Mg Tablet 1000 MG PO BID Metoprolol Succinate (Toprol Xl) 100 Mg Tab.er.24h 100 MG PO HS Metoprolol Succinate (Metoprolol Succinate) 50 Mg Tab.er.24h 50 MG PO AM, TAB Nitroglycerin (Nitroglycerin) 0.4 Mg Tab.subl 0.4 MG PO UD PRN for CHEST PAIN Omeprazole (Omeprazole) 40 Mg Capsule.dr 40 MG PO BID, CAP Ondansetron HCl (Ondansetron HCl) 8 Mg Tablet 8 MG PO Q8H PRN for NAUSEA/VOMITING-1ST LINE Promethazine HCl (Promethazine Tablet) 25 Mg Tablet 25 MG PO Q6H PRN for NAUSEA/VOMITING-4TH LINE Sucralfate (Carafate) 1 Gm Tablet 1 GM PO QID, TAB Tizanidine HCl (Tizanidine HCl) 4 Mg Tablet 4 MG PO TID PRN for MUSCLE SPASMS, TAB Tramadol HCl (Tramadol HCl) 50 Mg Tablet 50 MG PO TID PRN for PAIN-MODERATE Patient Instructions Patient Instructions -take medication as prescribed -tylenol 650 mg every 4-6 hours as needed for pain or fever -call office if temp >100.4 not relieved by tylenol, nausea or vomiting that makes you unable to keep down clear liquids for more than 12 hours, chest pain or pressure, shortness of breath out of norm for you, or any other questions or concerns -proceed to ED if concerns are emergent -follow blood transfusion reaction warnings and signs handout provided to you by nursing staff -keep follow up appointments as scheduled Goal/Follow Up Appt: Bill Torres, 10/14/17 at 10:[address] Jorge in 1-[address] Haywood in 1-2 weeks [facility] to [facility]: -call office if temp >100.4 not relieved by tylenol, nausea or vomiting that makes you unable to keep down clear liquids for more than 12 hours, chest pain or pressure, shortness of breath out of norm for you, or any other questions or concerns -proceed to ED if concerns are emergent Activity & Diet Discharge Diet: Low Sodium Diet, ADA Diet, Cardiac Diet Activity as Tolerated: Yes Copy Copies To 1: JAMES TORRES MD; Wei JORGE MD; SHIREEN AGARWAL MARGARET E DO Oct 05, 2017 13:38
[2017-10-05 15:20] VITALS: BP 191/73
[2017-10-06 15:39] LABS: BASOPHILS % (AUTO) 0 % (0-10); EOSINOPHILS # (AUTO) 0.2 10^3/uL (0.0-0.3); EOSINOPHILS % (AUTO) 4 % (0-10); HEMATOCRIT 25 % (35-52); HEMOGLOBIN 7.8 G/DL (11.5-16.0); LYMPHOCYTES # (AUTO) 0.9 X 10^3 (1.0-4.0); LYMPHOCYTES % (AUTO) 16 % (12-44); MEAN CORPUSCULAR HEMOGLOBIN 30 PG (25-34); MEAN CORPUSCULAR HGB CONC 31 G/DL (32-36); MEAN CORPUSCULAR VOLUME 97 FL (80-99); MONOCYTES # (AUTO) 0.5 X 10^3 (0.0-1.0); MONOCYTES % (AUTO) 9 % (0-12); NEUTROPHILS # (AUTO) 3.7 X 10^3 (1.8-7.8); NEUTROPHILS % (AUTO) 71 % (42-75); PLATELET COUNT 143 10^3/uL (130-400); RED BLOOD COUNT 2.57 10^6/uL (4.35-5.85); RED CELL DISTRIBUTION WIDTH 15.4 % (10.0-14.5); WHITE BLOOD COUNT 5.2 10^3/uL (4.3-11.0)
== END 2017-10-05 15:20 | disposition home or self-care (01) ==
LOC: EDUNIT# 22:07 → ER 22:08 → 4TH 23:50
PROVIDERS: ADMIT Family Medicine; ATTEND Family Medicine
DX: I21.4 Non-ST elevation (NSTEMI) myocardial infarction (principal); D64.9 Anemia, unspecified; E11.65 Type 2 diabetes mellitus with hyperglycemia; K92.2 Gastrointestinal hemorrhage, unspecified; E03.9 Hypothyroidism, unspecified; E78.00 Pure hypercholesterolemia, unspecified; I11.9 Hypertensive heart disease without heart failure; I48.0 Paroxysmal atrial fibrillation; N30.00 Acute cystitis without hematuria; I50.9 Heart failure, unspecified; N17.9 Acute kidney failure, unspecified; E87.5 Hyperkalemia; E66.01 Morbid (severe) obesity due to excess calories; Z95.5 Presence of coronary angioplasty implant and graft; K74.60 Unspecified cirrhosis of liver; Z87.891 Personal history of nicotine dependence; Z88.1 Allergy status to other antibiotic agents; Z79.84 Long term (current) use of oral hypoglycemic drugs; Z79.899 Other long term (current) drug therapy; Z68.42 Body mass index [BMI] 45.0-49.9, adult
CPT/HCPCS: 36415; 71045; 80048; 80053; 81000; 82274; 82962; 83605; 83735; 83874; 84484; 85014; 85018; 85025; 85027; 85045; 85610; 85730; 86850; 86900; 86901; 86922; 87040; 87088; 93005; 93041; 94640; 94760; 96374; 96375; 96376

== ENCOUNTER 2017-10-20 11:12 | Outpatient (RCR) | payer OTHER ==
[2017-07-28 10:39] LABS: ABSOLUTE RETIC # 114 10e9/L (24-90); BASOPHILS % (AUTO) 0 % (0-10); EOSINOPHILS # (AUTO) 0.3 10^3/uL (0.0-0.3); EOSINOPHILS % (AUTO) 7 % (0-10); HEMATOCRIT 22 % (35-52); LYMPHOCYTES % (AUTO) 20 % (12-44); MEAN CORPUSCULAR HEMOGLOBIN 31 PG (25-34); MEAN CORPUSCULAR HGB CONC 31 G/DL (32-36); MEAN CORPUSCULAR VOLUME 100 FL (80-99); MEAN PLATELET VOLUME 9.1 FL (7.4-10.4); MONOCYTES # (AUTO) 0.4 X 10^3 (0.0-1.0); MONOCYTES % (AUTO) 8 % (0-12); NEUTROPHILS # (AUTO) 3.3 X 10^3 (1.8-7.8); NEUTROPHILS % (AUTO) 65 % (42-75); PLATELET COUNT 177 10^3/uL (130-400); RED BLOOD COUNT 2.25 10^6/uL (4.35-5.85); RED CELL DISTRIBUTION WIDTH 14.2 % (10.0-14.5); RETICULOCYTE % 5.06 % (0.50-2.40); WHITE BLOOD COUNT 5.1 10^3/uL (4.3-11.0)
[2017-07-28 10:41] LABS: HEMOGLOBIN 6.9 G/DL (11.5-16.0)
[2017-07-28 10:56] LABS: ALBUMIN 3.5 GM/DL (3.2-4.5); BILIRUBIN,TOTAL 0.5 MG/DL (0.1-1.0); CREATININE SERUM 1.09 MG/DL (0.60-1.30); POTASSIUM 4.5 MMOL/L (3.6-5.0); TOTAL PROTEIN 7.1 GM/DL (6.4-8.2)
[2017-08-04 11:06] LABS: BASOPHILS % (AUTO) 1 % (0-10); EOSINOPHILS # (AUTO) 0.4 10^3/uL (0.0-0.3); EOSINOPHILS % (AUTO) 6 % (0-10); HEMATOCRIT 25 % (35-52); HEMOGLOBIN 7.9 G/DL (11.5-16.0); LYMPHOCYTES # (AUTO) 1.1 X 10^3 (1.0-4.0); LYMPHOCYTES % (AUTO) 19 % (12-44); MEAN CORPUSCULAR HEMOGLOBIN 31 PG (25-34); MEAN CORPUSCULAR HGB CONC 31 G/DL (32-36); MEAN CORPUSCULAR VOLUME 98 FL (80-99); MEAN PLATELET VOLUME 9.5 FL (7.4-10.4); MONOCYTES # (AUTO) 0.6 X 10^3 (0.0-1.0); MONOCYTES % (AUTO) 10 % (0-12); NEUTROPHILS # (AUTO) 3.8 X 10^3 (1.8-7.8); NEUTROPHILS % (AUTO) 65 % (42-75); PLATELET COUNT 168 10^3/uL (130-400); RED BLOOD COUNT 2.59 10^6/uL (4.35-5.85); RED CELL DISTRIBUTION WIDTH 13.7 % (10.0-14.5)
[2017-08-04 11:24] LABS: ABSOLUTE RETIC # 93 10e9/L (24-90); RETICULOCYTE % 3.55 % (0.50-2.40)
[2017-08-10 10:54] LABS: BASOPHILS % (AUTO) 1 % (0-10); EOSINOPHILS # (AUTO) 0.3 10^3/uL (0.0-0.3); EOSINOPHILS % (AUTO) 6 % (0-10); HEMATOCRIT 27 % (35-52); HEMOGLOBIN 8.5 G/DL (11.5-16.0); LYMPHOCYTES # (AUTO) 1.1 X 10^3 (1.0-4.0); LYMPHOCYTES % (AUTO) 21 % (12-44); MEAN CORPUSCULAR HEMOGLOBIN 31 PG (25-34); MEAN CORPUSCULAR HGB CONC 32 G/DL (32-36); MEAN CORPUSCULAR VOLUME 96 FL (80-99); MEAN PLATELET VOLUME 9.5 FL (7.4-10.4); MONOCYTES # (AUTO) 0.4 X 10^3 (0.0-1.0); MONOCYTES % (AUTO) 8 % (0-12); NEUTROPHILS # (AUTO) 3.4 X 10^3 (1.8-7.8); NEUTROPHILS % (AUTO) 65 % (42-75); PLATELET COUNT 149 10^3/uL (130-400); RED BLOOD COUNT 2.79 10^6/uL (4.35-5.85); RED CELL DISTRIBUTION WIDTH 13.5 % (10.0-14.5); WHITE BLOOD COUNT 5.2 10^3/uL (4.3-11.0)
[2017-08-17 12:03] LABS: BASOPHILS % (AUTO) 1 % (0-10); EOSINOPHILS # (AUTO) 0.3 10^3/uL (0.0-0.3); EOSINOPHILS % (AUTO) 6 % (0-10); HEMATOCRIT 26 % (35-52); HEMOGLOBIN 8.2 G/DL (11.5-16.0); LYMPHOCYTES # (AUTO) 1.2 X 10^3 (1.0-4.0); LYMPHOCYTES % (AUTO) 22 % (12-44); MEAN CORPUSCULAR HEMOGLOBIN 30 PG (25-34); MEAN CORPUSCULAR HGB CONC 32 G/DL (32-36); MEAN CORPUSCULAR VOLUME 96 FL (80-99); MONOCYTES # (AUTO) 0.5 X 10^3 (0.0-1.0); MONOCYTES % (AUTO) 10 % (0-12); NEUTROPHILS # (AUTO) 3.3 X 10^3 (1.8-7.8); NEUTROPHILS % (AUTO) 62 % (42-75); PLATELET COUNT 175 10^3/uL (130-400); RED CELL DISTRIBUTION WIDTH 13.2 % (10.0-14.5); WHITE BLOOD COUNT 5.3 10^3/uL (4.3-11.0)
[2017-08-24 13:22] LABS: BASOPHILS % (AUTO) 1 % (0-10); EOSINOPHILS # (AUTO) 0.3 10^3/uL (0.0-0.3); EOSINOPHILS % (AUTO) 7 % (0-10); HEMATOCRIT 24 % (35-52); HEMOGLOBIN 7.3 G/DL (11.5-16.0); LYMPHOCYTES % (AUTO) 19 % (12-44); MEAN CORPUSCULAR HEMOGLOBIN 30 PG (25-34); MEAN CORPUSCULAR HGB CONC 31 G/DL (32-36); MEAN CORPUSCULAR VOLUME 95 FL (80-99); MEAN PLATELET VOLUME 9.7 FL (7.4-10.4); MONOCYTES # (AUTO) 0.4 X 10^3 (0.0-1.0); MONOCYTES % (AUTO) 9 % (0-12); NEUTROPHILS # (AUTO) 3.2 X 10^3 (1.8-7.8); NEUTROPHILS % (AUTO) 65 % (42-75); PLATELET COUNT 161 10^3/uL (130-400); RED BLOOD COUNT 2.47 10^6/uL (4.35-5.85); RED CELL DISTRIBUTION WIDTH 13.1 % (10.0-14.5); WHITE BLOOD COUNT 4.9 10^3/uL (4.3-11.0)
[2017-09-02 11:07] LABS: BASOPHILS % (AUTO) 0 % (0-10); EOSINOPHILS # (AUTO) 0.2 10^3/uL (0.0-0.3); EOSINOPHILS % (AUTO) 6 % (0-10); HEMATOCRIT 23 % (35-52); LYMPHOCYTES # (AUTO) 1.2 X 10^3 (1.0-4.0); LYMPHOCYTES % (AUTO) 27 % (12-44); MEAN CORPUSCULAR HEMOGLOBIN 29 PG (25-34); MEAN CORPUSCULAR HGB CONC 30 G/DL (32-36); MEAN CORPUSCULAR VOLUME 97 FL (80-99); MEAN PLATELET VOLUME 9.5 FL (7.4-10.4); MONOCYTES # (AUTO) 0.3 X 10^3 (0.0-1.0); MONOCYTES % (AUTO) 8 % (0-12); NEUTROPHILS # (AUTO) 2.6 X 10^3 (1.8-7.8); NEUTROPHILS % (AUTO) 60 % (42-75); PLATELET COUNT 145 10^3/uL (130-400); RED BLOOD COUNT 2.39 10^6/uL (4.35-5.85); RED CELL DISTRIBUTION WIDTH 13.3 % (10.0-14.5); WHITE BLOOD COUNT 4.3 10^3/uL (4.3-11.0)
[2017-09-02 11:09] LABS: HEMOGLOBIN 6.9 G/DL (11.5-16.0)
[2017-09-02 11:28] LABS: ALBUMIN 3.7 GM/DL (3.2-4.5); BILIRUBIN,TOTAL 0.4 MG/DL (0.1-1.0); CALCIUM 8.9 MG/DL (8.5-10.1); CREATININE SERUM 1.33 MG/DL (0.60-1.30); POTASSIUM 4.4 MMOL/L (3.6-5.0); TOTAL PROTEIN 7.1 GM/DL (6.4-8.2)
[2017-09-10 14:06] LABS: BASOPHILS % (AUTO) 0 % (0-10); EOSINOPHILS # (AUTO) 0.4 10^3/uL (0.0-0.3); EOSINOPHILS % (AUTO) 6 % (0-10); HEMATOCRIT 25 % (35-52); HEMOGLOBIN 7.7 G/DL (11.5-16.0); LYMPHOCYTES # (AUTO) 1.3 X 10^3 (1.0-4.0); LYMPHOCYTES % (AUTO) 22 % (12-44); MEAN CORPUSCULAR HEMOGLOBIN 30 PG (25-34); MEAN CORPUSCULAR HGB CONC 31 G/DL (32-36); MEAN CORPUSCULAR VOLUME 98 FL (80-99); MEAN PLATELET VOLUME 9.7 FL (7.4-10.4); MONOCYTES # (AUTO) 0.6 X 10^3 (0.0-1.0); MONOCYTES % (AUTO) 9 % (0-12); NEUTROPHILS # (AUTO) 3.6 X 10^3 (1.8-7.8); NEUTROPHILS % (AUTO) 62 % (42-75); PLATELET COUNT 151 10^3/uL (130-400); RED BLOOD COUNT 2.53 10^6/uL (4.35-5.85); RED CELL DISTRIBUTION WIDTH 15.4 % (10.0-14.5); WHITE BLOOD COUNT 5.8 10^3/uL (4.3-11.0)
[2017-09-16 11:32] LABS: BASOPHILS % (AUTO) 1 % (0-10); EOSINOPHILS # (AUTO) 0.3 10^3/uL (0.0-0.3); EOSINOPHILS % (AUTO) 6 % (0-10); HEMATOCRIT 24 % (35-52); HEMOGLOBIN 7.5 G/DL (11.5-16.0); LYMPHOCYTES # (AUTO) 1.2 X 10^3 (1.0-4.0); LYMPHOCYTES % (AUTO) 22 % (12-44); MEAN CORPUSCULAR HEMOGLOBIN 31 PG (25-34); MEAN CORPUSCULAR HGB CONC 31 G/DL (32-36); MEAN CORPUSCULAR VOLUME 100 FL (80-99); MEAN PLATELET VOLUME 9.8 FL (7.4-10.4); MONOCYTES # (AUTO) 0.4 X 10^3 (0.0-1.0); MONOCYTES % (AUTO) 7 % (0-12); NEUTROPHILS # (AUTO) 3.5 X 10^3 (1.8-7.8); NEUTROPHILS % (AUTO) 65 % (42-75); PLATELET COUNT 140 10^3/uL (130-400); RED BLOOD COUNT 2.42 10^6/uL (4.35-5.85); RED CELL DISTRIBUTION WIDTH 17.2 % (10.0-14.5); WHITE BLOOD COUNT 5.3 10^3/uL (4.3-11.0)
[2017-09-23 12:24] LABS: BASOPHILS % (AUTO) 0 % (0-10); EOSINOPHILS # (AUTO) 0.3 10^3/uL (0.0-0.3); EOSINOPHILS % (AUTO) 6 % (0-10); HEMATOCRIT 26 % (35-52); HEMOGLOBIN 8.2 G/DL (11.5-16.0); LYMPHOCYTES # (AUTO) 0.8 X 10^3 (1.0-4.0); LYMPHOCYTES % (AUTO) 19 % (12-44); MEAN CORPUSCULAR HEMOGLOBIN 31 PG (25-34); MEAN CORPUSCULAR HGB CONC 31 G/DL (32-36); MEAN CORPUSCULAR VOLUME 98 FL (80-99); MONOCYTES # (AUTO) 0.3 X 10^3 (0.0-1.0); MONOCYTES % (AUTO) 8 % (0-12); NEUTROPHILS # (AUTO) 2.9 X 10^3 (1.8-7.8); NEUTROPHILS % (AUTO) 67 % (42-75); PLATELET COUNT 139 10^3/uL (130-400); RED BLOOD COUNT 2.66 10^6/uL (4.35-5.85); RED CELL DISTRIBUTION WIDTH 15.8 % (10.0-14.5); WHITE BLOOD COUNT 4.3 10^3/uL (4.3-11.0)
[2017-10-14 15:51] LABS: BASOPHILS % (AUTO) 0 % (0-10); EOSINOPHILS # (AUTO) 0.4 10^3/uL (0.0-0.3); EOSINOPHILS % (AUTO) 7 % (0-10); HEMATOCRIT 28 % (35-52); HEMOGLOBIN 8.3 G/DL (11.5-16.0); LYMPHOCYTES % (AUTO) 20 % (12-44); MEAN CORPUSCULAR HEMOGLOBIN 30 PG (25-34); MEAN CORPUSCULAR HGB CONC 30 G/DL (32-36); MEAN CORPUSCULAR VOLUME 101 FL (80-99); MEAN PLATELET VOLUME 9.9 FL (7.4-10.4); MONOCYTES # (AUTO) 0.4 X 10^3 (0.0-1.0); MONOCYTES % (AUTO) 8 % (0-12); NEUTROPHILS # (AUTO) 3.3 X 10^3 (1.8-7.8); NEUTROPHILS % (AUTO) 65 % (42-75); PLATELET COUNT 186 10^3/uL (130-400); RED BLOOD COUNT 2.76 10^6/uL (4.35-5.85); WHITE BLOOD COUNT 5.1 10^3/uL (4.3-11.0)
[~2017-10-20 11:12] MED LIST changes: +AMOX500C2 PO; +CYANOCOBALAMIN INJ 1000 MCG/ML (CANCER CENTER) ONE; +ENALAPRIL; +FERRIC CARBOXYMALTOSE (CANCER) 750 MG in NS (IVPB) CANCER CENTER 250 ML IV SCH; +FOLI0.8C PO; -METF1000 PO; +METF10002 PO; +NS (IVPB) CANCER CENTER 250 ML ONE; +NS IV 500 ML (CANCER CENTER) 500 ML ONE; +ROSU5TAB11 PO; +TIZA4TAB3 PO
[2017-10-20 13:19] LABS: BASOPHILS % (AUTO) 1 % (0-10); EOSINOPHILS # (AUTO) 0.3 10^3/uL (0.0-0.3); EOSINOPHILS % (AUTO) 6 % (0-10); HEMATOCRIT 29 % (35-52); HEMOGLOBIN 8.6 G/DL (11.5-16.0); LYMPHOCYTES % (AUTO) 17 % (12-44); MEAN CORPUSCULAR HEMOGLOBIN 31 PG (25-34); MEAN CORPUSCULAR HGB CONC 30 G/DL (32-36); MEAN CORPUSCULAR VOLUME 103 FL (80-99); MEAN PLATELET VOLUME 9.4 FL (7.4-10.4); MONOCYTES # (AUTO) 0.4 X 10^3 (0.0-1.0); MONOCYTES % (AUTO) 7 % (0-12); NEUTROPHILS # (AUTO) 4.1 X 10^3 (1.8-7.8); NEUTROPHILS % (AUTO) 70 % (42-75); PLATELET COUNT 196 10^3/uL (130-400); RED BLOOD COUNT 2.78 10^6/uL (4.35-5.85); RED CELL DISTRIBUTION WIDTH 15.8 % (10.0-14.5); WHITE BLOOD COUNT 5.8 10^3/uL (4.3-11.0)
[2017-10-20 13:45] LABS: ALANINE AMINOTRANSFERASE 12 U/L (0-55); ALBUMIN 3.7 GM/DL (3.2-4.5); ALKALINE PHOSPHATASE 53 U/L (40-136); BILIRUBIN,TOTAL 0.5 MG/DL (0.1-1.0); BUN/CREATININE RATIO 12; CALCIUM 8.8 MG/DL (8.5-10.1); CARBON DIOXIDE 24 MMOL/L (21-32); CHLORIDE 110 MMOL/L (98-107); CREATININE SERUM 0.93 MG/DL (0.60-1.30); GFR ESTIMATED > 60; GLUCOSE 169 MG/DL (70-105); POTASSIUM 5.1 MMOL/L (3.6-5.0); SODIUM 142 MMOL/L (135-145); TOTAL PROTEIN 7.4 GM/DL (6.4-8.2)
== END 2017-10-26 | disposition home or self-care (01) ==
LOC: ONC 11:12
PROVIDERS: ATTEND Internal Medicine Hematology & Oncology
DX: D50.9 Iron deficiency anemia, unspecified (principal); I25.10 Atherosclerotic heart disease of native coronary artery without angina pectoris; E03.9 Hypothyroidism, unspecified; I12.9 Hypertensive chronic kidney disease with stage 1 through stage 4 chronic kidney disease, or unspecified chronic kidney disease; N18.3 Chronic kidney disease, stage 3 (moderate); E11.22 Type 2 diabetes mellitus with diabetic chronic kidney disease; I48.91 Unspecified atrial fibrillation; Z79.899 Other long term (current) drug therapy
CPT/HCPCS: 36415; 36430; 80053; 82728; 83090; 83921; 84443; 85025; 85045; 86850; 86870; 86900; 86901; 86902; 86920; 86922; 96365; 96372; 99213

== ENCOUNTER 2017-11-06 12:08 | Observation (INO) | payer OTHER ==
[2017-11-06] VITALS (7 sets, daily range): BP systolic 175–194; BP diastolic 69–77
[~2017-11-06] VITALS: Ht 162.6 cm; Wt 131.3 kg
--- OUTSIDE RECORDS SUMMARY | 2017-11-06 12:15 | XMS REPORT | Encounter Summary ---
Author Author [facility] Organization [facility] Address Unknown Phone Unavailable Care Team Providers Care Iron Worker Foreman Name Role Phone Carla Wilson MD PCP Naima Field MD Unavailable Reason for Visit * Reason Comments Results Encounter Details Date Type Department Care Team Description 10/01/2017 Telephone [facility] Sri Okeefe MD Results [facility] - OP Exam [id number] [place] [address] [phone] [id number] [phone] Social History Tobacco Use Types Packs/Day Years [...]
--- OUTSIDE RECORDS SUMMARY | 2017-11-06 12:15 | XMS REPORT | Encounter Summary ---
Author Author [facility] Organization [facility] Address Unknown Phone Unavailable Care Team Providers Care Mat Repairer Name Role Phone Carla Wilson MD PCP Naima Field MD Unavailable Reason for Visit * Reason Comments Heme/Onc Care Encounter Details Date Type Department Care Team Description 09/28/2017 Office Visit [facility] Sri Okeefe MD Anemia, unspecified type Cancer Center - OP Exam [address] ([place]x) [address] [phone] [id number] [phone] Social History Tobacco Use Types Packs/Day Years [...] If you need anything, call Chichi at [phone]. You can also email at [email or web address] or through [email or web address]. If you do send an email and don't get a response within 1-2 days, please call. My email is not accessible to anyone else when I am out of the office, and I'd hate to come back from vacation to hear that you' ve been waiting on a response for weeks! My fax number is [phone]. in this encounter Progress Notes * Sri Okeefe MD - 09/28/2017 2:00 PM CDT Formatting of this note may be different from the original. Date of Service: 09/28/2017 Subjective: Reason for Visit: New patient visit, self-referral. Heme/Onc Care Second opinion for anemia/GI bleeding. Stock Hanger, Dr. Naima Field. Deborah Fields is a 62 y.o. female. Cancer Staging No matching staging information was found for the patient. History of Present Illness Deborah is a 62-year-old female. She is from [facility], [place]. She is being seen at [facility]. Patient had developed anemia back in 2013 , with hemoglobin of 9.1 g. She was seen by general machinist and workup include normal serum protein electrophoresis. [...] stay ahead. Perhaps refer to a different patient observation assistant who may be able to do a push enteroscopy that will see directly see the proximal portion of the small intestine, at least. Dr. Field said he will refer her to a different GI clinic. He can call me at any time at [phone]. We will call the patient with the [...] MU/ML Specimen Performing Laboratory Blood MAIN LAB [address] [place] [address] * PERIPHERAL SMEAR (09/28/2017 3:42 PM) Component [...] report. Specimen Performing Laboratory Blood MAIN LAB [address] [place] [address] * LDH-LACTATE DEHYDROGENASE (09/28/2017 3:42 PM) Component Value Ref Range Lactate Dehydrogenase 173 100 - 210 U/L Specimen Performing Laboratory Blood [facility] [address] [place] [id number] * HAPTOGLOBIN (09/28/2017 3:42 PM) Component Value Ref Range Haptoglobin 140 16 - 200 MG/DL Specimen Performing Laboratory Blood [facility] [address] [place] [id number] * IRON + BINDING CAPACITY + %SAT+ FERRITIN (09/28/2017 3:42 PM) Component Value Ref Range Iron 51 50 - 160 MCG/DL Iron Binding-TIBC 422 (H) 270 - 380 MCG/DL % Saturation 12 (L) 28 - 42 % Ferritin 146 10 - 200 NG/ML Specimen Performing Laboratory Blood [facility] [address] [place] [address] * RETICULOCYTE COUNT (09/28/2017 3:42 PM) Component Value Ref Range Retic, Uncorrected 4.1 (H) 0.5 - 2.0 % Retic, Corrected 2.4 % Retic, Absolute 106.3 (H) 30 - 94 K/UL Specimen Performing Laboratory Blood MAIN LAB [address] [place], [place] [address] [address] * CBC AND DIFF (09/28/2017 3:42 PM) [...] - 0.20 K/UL Specimen Performing Laboratory Blood [facility] [place] [id number] [place] [id number] in this encounter Visit Diagnoses Diagnosis Anemia, unspecified type - Primary
--- OUTSIDE RECORDS SUMMARY | 2017-11-06 12:15 | XMS REPORT | Encounter Summary ---
Author Author [facility] Organization [facility] Address Unknown Phone Unavailable Care Team Providers Care Allergy Nurse Name Role Phone Carla Wilson MD PCP Naima Field MD Unavailable Encounter Details Date Type Department Care Team Description 09/23/2017 Telephone [facility] Phu Erazo RN [facility] - Exam [address] [place] [address] Social History Tobacco Use Types Packs/Day Years [...] PM Sri Okeefe MD [facility] Exam 09/28/2017 2:00 PM TARIK LEGGETT [facility] Exam Diagnosis & Reason for Visit: Iron Deficiency anemia, GI blood loss Physician Info: Referring Physician: Self Referral PCP: Carla Wilson MD Contact Name & Number: [phone] Medical Oncologist: Naima Grace MD History of [...]
--- OUTSIDE RECORDS SUMMARY | 2017-11-06 12:15 | XMS REPORT | Encounter Summary ---
Author Author [facility] Organization [facility] Address Unknown Phone Unavailable Care Team Providers Care First Aid Nurse Name Role Phone Carla Wilson MD PCP Naima Field MD Unavailable Encounter Details Date Type Department Care Team Description 09/28/2017 [facility] Sri Okeefe MD Encounter Cancer Center - OP Lab [id number] [place] [id number] [place], [place] [address] [place] [address] [phone] Social History Tobacco Use Types Packs/Day Years [...] Specimen Performing Laboratory Blood MAIN LAB [address] [place] [address] * PERIPHERAL SMEAR (09/28/2017 3:42 PM) Component [...] Specimen Performing Laboratory Blood MAIN LAB [address] [place] [address] * LDH-LACTATE DEHYDROGENASE (09/28/2017 3:42 PM) Component Value Ref Range Lactate Dehydrogenase 173 100 - 210 U/L Specimen Performing Laboratory Blood MAIN LAB [address] [place] [address] * HAPTOGLOBIN (09/28/2017 3:42 PM) Component Value Ref Range Haptoglobin 140 16 - 200 MG/DL Specimen Performing Laboratory Blood MAIN LAB [address] [place] [address] * IRON + BINDING CAPACITY + %SAT+ FERRITIN (09/28/2017 3:42 PM) Component Value Ref Range Iron 51 50 - 160 MCG/DL Iron Binding-TIBC 422 (H) 270 - 380 MCG/DL % Saturation 12 (L) 28 - 42 % Ferritin 146 10 - 200 NG/ML Specimen Performing Laboratory Blood MAIN LAB [address] [place] [address] * RETICULOCYTE COUNT (09/28/2017 3:42 PM) Component Value Ref Range Retic, Uncorrected 4.1 (H) 0.5 - 2.0 % Retic, Corrected 2.4 % Retic, Absolute 106.3 (H) 30 - 94 K/UL Specimen Performing Laboratory Blood MAIN LAB [address] [place] [address] * CBC AND DIFF (09/28/2017 3:42 PM) [...] [facility] [place] [address] [address] in this encounter Visit Diagnoses Diagnosis Anemia, unspecified type
--- OUTSIDE RECORDS SUMMARY | 2017-11-06 12:15 | XMS REPORT | Clinical Summary ---
Author Author [facility] Organization [facility] Address Unknown Phone Unavailable Care Team Providers Care Inspector Final Assembly Conveyor Line Name Role Phone Carla Wilson MD PCP Naima Field MD Unavailable Source Comments Some departments are not documenting in the electronic medical record. If you do not see the information that you expected, contact Release of Information in the Health Information Management department at [phone] for further assistance in locating additional records.[facility] Allergies Active Allergy Reactions Severity Noted [...] Results 09/28/2017 Hospital Lab Sri Okeefe MD Encounter 09/28/2017 Office Visit Oncology Sri Okeefe [...] NG/ML Specimen Performing Laboratory Blood MAIN LAB [address] [place] [address] * PERIPHERAL SMEAR (09/28/2017 3:42 PM) Component [...] Specimen Performing Laboratory Blood MAIN LAB [address] [place] [address] * ERYTHROPOIETIN (09/28/2017 3:42 PM) Component Value Ref Range Erythropoietin 48.1 (H) 3.7 - 29.5 MU/ML Specimen Performing Laboratory Blood MAIN LAB [address] [place] [address] * RETICULOCYTE COUNT (09/28/2017 3:42 PM) Component Value Ref Range Retic, Uncorrected 4.1 (H) 0.5 - 2.0 % Retic, Corrected 2.4 % Retic, Absolute 106.3 (H) 30 - 94 K/UL Specimen Performing Laboratory Blood MAIN LAB [address] [place] [address] * CBC AND DIFF (09/28/2017 3:42 PM) [...] - 0.20 K/UL Specimen Performing Laboratory Blood [facility] [address] [address] * LDH-LACTATE DEHYDROGENASE (09/28/2017 3:42 PM) Component Value Ref Range Lactate Dehydrogenase 173 100 - 210 U/L Specimen Performing Laboratory Blood MAIN LAB [address] [place] [address] * HAPTOGLOBIN (09/28/2017 3:42 PM) Component Value Ref Range Haptoglobin 140 16 - 200 MG/DL Specimen Performing Laboratory Blood MAIN LAB [address] [place] [address] from Last 3 Months
--- OUTSIDE RECORDS SUMMARY | 2017-11-06 12:16 | XMS REPORT ---
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 Active 391595612 Problem Non-insulin treated type 2 diabetes mellitus E11.9 Active 842781943 Problem Paroxysmal atrial fibrillation I48.0 Active 220200131 Problem Psoriasis L40.9 Active 6606736 Problem Non-intractable cyclical vomiting with nausea G43.A0 Active 55672024 Problem Reflux gastritis K29.60 Active 08285065 Problem History of anemia Z86.2 Active 293660092 Problem 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 Active 8469043419601 Problem 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 Active 479878305 Problem Essential hypertension I10 Active 94414223 Problem Non-insulin dependent type 2 diabetes mellitus E11.9 Active 82123077 Problem Acquired hypothyroidism E03.9 Active 461309656 ALLERGIES No Information ENCOUNTERS Encounter Location Date Diagnosis [facility] [id number] [address] October, [facility] [id number] [address] October, Essential hypertension I10 ; 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 ; Angina pectoris syndrome I20.9 and 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 [facility] [address] [facility] [id number] [address] Sep, 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 [facility] [id number] [place] [address] Sep, [facility] [id number] [place] [address] Sep, Angina pectoris syndrome I20.9 ; Paroxysmal atrial fibrillation I48.0 ; Microcytic anemia D50.9 ; 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 and 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 [facility] [id number] [place] [address] Aug, Non-insulin dependent type 2 diabetes mellitus E11.9 ; Microcytic anemia D50.9 ; Essential hypertension I10 and Acquired hypothyroidism E03.9 [place] [id number] [place] [address] Jul, [facility] [address] [address] Jul, [facility] [id number] [place] [address] Jun, [facility] [id number] [place] [address] May, [facility] [id number] [place] [address] May, History of anemia Z86.2 [facility] [id number] [place] [address] May, [facility] [id number] [place] [address] 111[address] May, [facility] [id number] [place] [address] May, Non-insulin treated type 2 diabetes mellitus E11.9 [facility] [id number] [place] [address] Apr, Abdominal pain, left upper quadrant R10.12 ; Right hand weakness R29.898 ; Essential hypertension I10 and Non-intractable cyclical vomiting with nausea G43.A0 [place] [address] [address] Apr, [place] [address] [address] Apr, Non-insulin treated type 2 diabetes mellitus E11.9 ; Essential hypertension I10 and Acquired hypothyroidism E03.9 [place] [address] [address] Mar, Encounter for immunization Z23 [address] [address] Mar, [address] [address] Feb, Microcytic anemia D50.9 ; Pain of left great toe M79.675 and Reflux gastritis K29.60 [place] [id number] [place] [address] Feb, 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 and Acquired hypothyroidism E03.9 [place] [id number] [place] [address] Jan, Psoriasis L40.9 ; Paroxysmal atrial fibrillation I48.0 ; Shortness of breath R06.02 and Microcytic anemia D50.9 [place] [id number] [place] [address] Dec, [place] [address] [address] Dec, [place] [id number] [place] [address] Dec, 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 [place] [address] [address] Nov, Therapeutic drug monitoring Z51.81 ; Essential hypertension I10 ; Microcytic anemia D50.9 and Shortness of breath R06.02 [facility] [address] [address] Nov, Acquired hypothyroidism E03.9 [facility] [address] [address] October, [facility] [address] [address] Sep, 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 [place] [address] [address] Aug, [place] [address] [address] Aug, Essential hypertension I10 [facility] [address] [address] Jul, Acquired hypothyroidism E03.9 ; Essential hypertension I10 ; Non-insulin treated type 2 diabetes mellitus E11.9 and 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 [place] [id number] [place] [address] Jul, [facility] [address] [address] Jul, Angina pectoris syndrome I20.9 and Essential hypertension I10 [facility] [address] [address] Jul, [facility] [address] [address] Jun, [facility] [id number] [place] [address] May, Abscess L02.91 [facility] [address] [place] [address] Apr, Non-insulin dependent type 2 diabetes mellitus E11.9 ; Essential hypertension I10 ; Acquired hypothyroidism E03.9 ; History of anemia Z86.2 and 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
--- OUTSIDE RECORDS SUMMARY | 2017-11-06 12:16 | XMS REPORT ---
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 Active 300658479 Problem Non-insulin treated type 2 diabetes mellitus E11.9 Active 481975484 Problem Paroxysmal atrial fibrillation I48.0 Active 764298353 Problem Psoriasis L40.9 Active 1262957 Problem Non-intractable cyclical vomiting with nausea G43.A0 Active 53757703 Problem Reflux gastritis K29.60 Active 63307945 Problem History of anemia Z86.2 Active 902100221 Problem Coronary artery disease involving yomba shoshone coronary artery of yomb[place] shoshone heart without angina pectoris I25.10 Active 8691516005823 Problem 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 Active 176922928 Problem Essential hypertension I10 Active 69520286 Problem Non-insulin dependent type 2 diabetes mellitus E11.9 Active 55648312 Problem Acquired hypothyroidism E03.9 Active 040150642 ALLERGIES Substance Reaction Event Type Date Status Cefadroxil nausea Drug Allergy Jan, Active ENCOUNTERS Encounter Location Date Diagnosis [facility] [address] [facility] [id number] [address] October, [facility] [address] [id number] [address] Sep, Coronary artery disease involving yomba shoshone coronary artery of [place] shoshone heart without angina pectoris I25.10 [facility] [address] [facility] [id number] [address] Sep, [facility] [id number] [place] [address]341[address] Sep, Angina pectoris syndrome I20.9 ; Paroxysmal atrial fibrillation I48.0 ; Microcytic anemia D50.9 ; 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 and 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 [place] [id number] [place] [address] Aug, Non-insulin dependent type 2 diabetes mellitus E11.9 ; Microcytic anemia D50.9 ; Essential hypertension I10 and Acquired hypothyroidism E03.9 [place] [id number] [place] [address]12[address] Jul, [place] [address] [address] Jul, [place] [address] [address] Jun, [place] [address] [address] May, [place] [id number] [place] [address]- [address]997 May, History of anemia Z86.2 [place] [id number] [place] [address] 15249- 6389 May, [place] [id number] [place] [address] 07764- 9022 May, [place] [id number] [place] [address] 97863- 3888 May, Non-insulin treated type 2 diabetes mellitus E11.9 [place] [id number] [place] [address]61- 0260 Apr, Abdominal pain, left upper quadrant R10.12 ; Right hand weakness R29.898 ; Essential hypertension I10 and Non-intractable cyclical vomiting with nausea G43.A0 [place] [id number] [place] [address]359- 4415 Apr, [place] [id number] [place] [address]18- 2006 Apr, Acquired hypothyroidism E03.9 ; Essential hypertension I10 and Non-insulin treated type 2 diabetes mellitus E11.9 [place] [id number] [place] [address]88- 9950 Mar, Encounter for immunization Z23 [address] [address] Mar, [place] [address] [address] Feb, Microcytic anemia D50.9 ; Pain of left great toe M79.675 and Reflux gastritis K29.60 [place] [id number] [place] [address]- 0623 Feb, Coronary artery disease involving yomba shoshone coronary artery of yomba shoshone heart without angina pectoris I25.10 and Acquired hypothyroidism E03.9 [id number] [place] [address]- 0314 Jan, Psoriasis L40.9 ; Paroxysmal atrial fibrillation I48.0 ; Shortness of breath R06.02 and Microcytic anemia D50.9 [place] [id number] [place] [address]63- 5237 Dec, [place] [id number] [place] [address]- 4421 Dec, [place] [id number] [place] [address]97- 0414 Dec, Coronary artery disease involving yomba shoshone coronary artery of y[place] shoshone heart without angina pectoris I25.10 [place] [id number] [place] [address]45- 8923 Nov, Therapeutic drug monitoring Z51.81 ; Essential hypertension I10 ; Microcytic anemia D50.9 and Shortness of breath R06.[address] [address]- [address] Nov, Acquired hypothyroidism E03.9 [facility] [address] [address] October, [facility] [id number] [place] [address]637- 4834 Sep, Coronary artery disease involving yomba shoshone coronary artery of [place] heart without angina pectoris I25.10 [facility] [id number] [place] [address]1979- [address] 17 Aug, 2016 [facility] [address] [place] [address]362- 8592 Aug, Essential hypertension I10 [facility] [id number] [place] [address]80- 2172 Jul, Acquired hypothyroidism E03.9 ; Essential hypertension I10 ; Non-insulin treated type 2 diabetes mellitus E11.9 and Coronary artery disease involving [place] shoshone coronary artery of y[place] shoshone heart without angina pectoris I25.10 [facility] [address] [address] Jul, [facility] [id number] [place] [address] 11971- 6570 Jul, Angina pectoris syndrome I20.9 and Essential hypertension I10 [facility] [id number] [place] [address] 96212- 9070 Jul, [facility] [id number] [place] [address]121- 3265 Jun, [facility] [address] [address] May, Abscess L02.91 [facility] [id number] [place] [address]54- 5750 Apr, Non-insulin dependent type 2 diabetes mellitus E11.9 ; Essential hypertension I10 ; Acquired hypothyroidism E03.9 ; History of anemia Z86.2 and Coronary artery disease involving [place] shoshone coronary artery of [place] shosh[place] heart without angina pectoris I25.10 [facility] [address] [facility] [id number] [place] [address] Apr, IMMUNIZATIONS No Known Immunizations SOCIAL HISTORY Never Assessed REASON FOR VISIT [facility] up -- malgorzata benjamin PLAN OF CARE Activity Details Follow Up f/u after pill endoscopy to reviewed results Reason: VITAL SIGNS Height 5'4" in 2017-02-05 Weight 278.9 lbs 2017-02-05 Temperature 97.0 degrees Fahrenheit 2017-02-05 Heart Rate 77 bpm 2017-02-05 Respiratory Rate 2017-02-05 BMI 47.87 kg/m2 2017-02-05 Blood pressure systolic 148 mmHg 2017-02-05 Blood pressure diastolic 68 mmHg 2017-02-05 MEDICATIONS Medication Instructions Dosage Frequency Start Date End Date Duration Status Furosemide 20 mg Orally Once a day as needed 1 tablet Jan, 45 days Active Metoprolol Succinate ER 50 mg Orally twice a day 50mg in the am and 100mg every night 12h Active Protonix 40 MG Orally Once a day 1 tablet 24h Active Clobetasol Propionate 0.05 % Externally Twice a day, PRN 1 application to affected area Jan, Active Tramadol HCl 50 mg Orally three times daily as needed 1 tablet Active Zetia 10 mg Orally Once a day 1 tablet 24h Dec, Active Metformin HCl 1000 MG Orally Twice a day 1 tablet with meals 12h 30 Active RESULTS No Results PROCEDURES No Known [...]
--- OUTSIDE RECORDS SUMMARY | 2017-11-06 12:16 | XMS REPORT ---
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 Active 525730227 Problem Non-insulin treated type 2 diabetes mellitus E11.9 Active 593668572 Problem Paroxysmal atrial fibrillation I48.0 Active 135988606 Problem Psoriasis L40.9 Active 0734869 Problem Non-intractable cyclical vomiting with nausea G43.A0 Active 33257698 Problem Reflux gastritis K29.60 Active 75922888 Problem History of anemia Z86.2 Active 708457154 Problem Coronary artery disease involving [place] coronary artery of [place] heart without angina pectoris I25.10 Active 7369130953638 Problem 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 Active 922586072 Problem Essential hypertension I10 Active 27566515 Problem Non-insulin dependent type 2 diabetes mellitus E11.9 Active 13965833 Problem Acquired hypothyroidism E03.9 Active 129917546 ALLERGIES No Information ENCOUNTERS Encounter Location Date Diagnosis [facility] [id number] [place] [address] 20142- 6620 Sep, Coronary artery disease involving [place] coronary artery of [place] heart without angina pectoris I25.10 [facility] [id number] [place] [address] 93004- 7159 Sep, [facility] [id number] [address] Sep, Angina pectoris syndrome I20.9 ; Paroxysmal atrial fibrillation I48.0 ; Microcytic anemia D50.9 ; 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 and 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 [place] [id number] [place] [address] 67323- 9295 Aug, Non-insulin dependent type 2 diabetes mellitus E11.9 ; Microcytic anemia D50.9 ; Essential hypertension I10 and Acquired hypothyroidism E03.9 [place] [address] [address]- 4020 Jul, [place] [address] 29101- 5228 Jul, [place] [address] 67005- 1254 Jun, [place] [address] 68678- 6191 May, [place] [address] 07056- 2440 May, History of anemia Z86.2 [place] [id number] [place] [address] 93773- 6998 May, [place] [address] 81750- 7706 May, [place] [id number] [place] [address] 95112- 5672 May, Non-insulin treated type 2 diabetes mellitus E11.9 [place] [id number] [place] [address] 30941- 6952 Apr, Abdominal pain, left upper quadrant R10.12 ; Right hand weakness R29.898 ; Essential hypertension I10 and Non-intractable cyclical vomiting with nausea G43.A0 [place] [id number] [place] [address] 70922- 8432 Apr, [place] [id number] [place] [address] 31042- 9504 Apr, Acquired hypothyroidism E03.9 ; Essential hypertension I10 and Non-insulin treated type 2 diabetes mellitus E11.9 [place] [id number] [address] Mar, Encounter for immunization Z23 [place] [id number] [place] [address] 21383- 3770 11 Mar, 2017 [place] [id number] [place] [address] 50332- 0191 Feb, Microcytic anemia D50.9 ; Pain of left great toe M79.675 and Reflux gastritis K29.60 [place] [id number] [place] [address] 80125- 3176 Feb, Coronary artery disease involving [place] coronary artery of [place] heart without angina pectoris I25.10 and Acquired hypothyroidism E03.9 [place] [id number] [place] [address] 70051- 7444 Jan, Psoriasis L40.9 ; Paroxysmal atrial fibrillation I48.0 ; Shortness of breath R06.02 and Microcytic anemia D50.9 [place] [id number] [place] [address] 07811- 1057 Dec, [place] [id number] [place] [address] 51214- 8243 Dec, [place] [id number] [place] [address] 26448- 5859 Dec, Coronary artery disease involving [place] coronary artery of [place] heart without angina pectoris I25.10 [place] [id number] [place] [address] 10605- 0877 Nov, Therapeutic drug monitoring Z51.81 ; Essential hypertension I10 ; Microcytic anemia D50.9 and Shortness of breath R06.02 [place] [id number] [place] [address] 07264- 1893 Nov, Acquired hypothyroidism E03.9 [place] [address] 43311- 4777 October, [facility] [address] [address] Sep, Coronary artery disease involving [place] coronary artery of [place] heart without angina pectoris I25.10 [facility] [address] [address] 17 Aug, 2016 [facility] [id number] [place] [address] 39151- 7976 Aug, Essential hypertension I10 [facility] [id number] [place] [address] 57014- 8906 20 Jul, 2016 Acquired hypothyroidism E03.9 ; Essential hypertension I10 ; Non-insulin treated type 2 diabetes mellitus E11.9 and Coronary artery disease involving [place] coronary artery of [place] heart without angina pectoris I25.10 [place] [address] [address] 1777 15 Jul, 2016 [facility] [id number] [place] [address] 07841- 1109 Jul, Angina pectoris syndrome I20.9 and Essential hypertension I10 [facility] [id number] [place] [address] 40616- 1064 Jul, [facility] [address] [address] 0793 Jun, [facility] [address] [address] May, Abscess L02.91 [facility] [address] [address] 3859 Apr, Non-insulin dependent type 2 diabetes mellitus E11.9 ; Essential hypertension I10 ; Acquired hypothyroidism E03.9 ; History of anemia Z86.2 and Coronary artery disease involving [place] coronary artery of [place] heart without angina pectoris I25.10 [facility] [address] [address] 14 Apr, 2016 IMMUNIZATIONS No Known Immunizations SOCIAL HISTORY Never Assessed REASON FOR VISIT Refill Request PLAN OF CARE VITAL SIGNS MEDICATIONS Medication Instructions Dosage Frequency Start Date End Date Duration Status Metoprolol Succinate ER 50 mg Orally Once a day 1 tablet in am 24h Active Metformin HCl 1000 MG Orally Twice a day 1 tablet with meals 12h 30 Active Levothyroxine Sodium 150 MCG Orally Once a day 1 tablet on an empty stomach in the morning 24h Active Glimepiride 2 MG Orally 2 times a day 1 12h Active Metoprolol Succinate ER 100 mg Orally Once a day 1 tablet at bedtime 24h Feb, 90 days Active RESULTS No Results PROCEDURES No Known [...]
--- OUTSIDE RECORDS SUMMARY | 2017-11-06 12:18 | XMS REPORT ---
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 Active 751157309 Problem Non-insulin treated type 2 diabetes mellitus E11.9 Active 594599524 Problem Paroxysmal atrial fibrillation I48.0 Active 107284681 Problem Psoriasis L40.9 Active 5080802 Problem Non-intractable cyclical vomiting with nausea G43.A0 Active 55188441 Problem Reflux gastritis K29.60 Active 78930961 Problem History of anemia Z86.2 Active 060163085 Problem Coronary artery disease involving [place] coronary artery of [place] heart without angina pectoris I25.10 Active 3450258671761 Problem 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 [address] [facility] [id number] [address] October, [facility] [id number] [address] 4[address] Sep, Coronary artery disease involving [place] coronary artery of [place] heart without angina pectoris I25.10 [facility] [address] [facility] [id number] [address] Sep, 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 [place] [id number] [place] [address] 72022- 8849 Aug, Non-insulin dependent type 2 diabetes mellitus E11.9 ; Microcytic anemia D50.9 ; Essential hypertension I10 and Acquired hypothyroidism E03.9 [place] [id number] [place] [address] 77215- 3425 Jul, [place] [address] 7[address]75- 3405 Jul, [place] [address] 79088- 0429 Jun, [place] [address] 13046- 0785 May, [place] [id number] [place] [address] 15306- 7548 May, History of anemia Z86.2 [place] [id number] [place] [address] 96945- 0843 May, [place] [id number] [place] [address] 28857- 8201 May, [place] [id number] [place] [address] 43998- 6806 May, Non-insulin treated type 2 diabetes mellitus E11.9 [place] [id number] [place] [address] 41179- 9648 Apr, Abdominal pain, left upper quadrant R10.12 ; Right hand weakness R29.898 ; Essential hypertension I10 and Non-intractable cyclical vomiting with nausea G43.A0 [place] [id number] [place] [address] 43713- 3590 Apr, [place] [id number] [place] [address] 43278- 4925 Apr, Acquired hypothyroidism E03.9 ; Essential hypertension I10 and Non-insulin treated type 2 diabetes mellitus E11.9 [place] [id number] [place] [address] 95322- 0345 Mar, Encounter for immunization Z23 [address] [address]51- 9862 Mar, [place] [address] 49696- 3769 Feb, Microcytic anemia D50.9 ; Pain of left great toe M79.675 and Reflux gastritis K29.60 [address] [id number] [place] [address] 25959- 6550 Feb, Coronary artery disease involving [place] coronary artery of [place] heart without angina pectoris I25.10 and Acquired hypothyroidism E03.9 [address] [id number] [place] [address] 94224- 0539 Jan, Psoriasis L40.9 ; Paroxysmal atrial fibrillation I48.0 ; Shortness of breath R06.02 and Microcytic anemia D50.9 [place] [id number] [place] [address] 80147- 2258 Dec, [place] [id number] [place] [address] 19305- 2660 Dec, [id number] [place] [address] 06286- 0289 Dec, Coronary artery disease involving [place] coronary artery of [place] heart without angina pectoris I25.10 [address] [id number] [place] [address] 99220- 9259 Nov, Therapeutic drug monitoring Z51.81 ; Essential hypertension I10 ; Microcytic anemia D50.9 and Shortness of breath R06.[address] 63692- 0987 Nov, Acquired hypothyroidism E03.9 [facility] [address] [address] 10[address] October, [facility] [id number] [place] [address] 905761- 1268 Sep, Coronary artery disease involving [place] coronary artery of [place] heart without angina pectoris I25.10 [facility] [id number] [place] [address] 15532- 5048 17 Aug, 2016 [facility] [id number] [place] [address] 49747- 3841 Aug, Essential hypertension I10 [facility] [id number] [place] [address] 11707- 2894 Jul, Acquired hypothyroidism E03.9 ; Essential hypertension I10 ; Non-insulin treated type 2 diabetes mellitus E11.9 and Coronary artery disease involving [place] coronary artery of [place] heart without angina pectoris I25.10 [facility] [address] [address]60 Jul, [facility] [id number] [place] [address] 82764- 2524 Jul, Angina pectoris syndrome I20.9 and Essential hypertension I10 [facility] [id number] [place] [address] 47006- 2773 Jul, [facility] [id number] [place] [address] 25008- 3671 Jun, [facility] [address], [place] [address] May, [address] [facility] [id number] [place] [address] 32758- 9237 Apr, Non-insulin dependent type 2 diabetes mellitus E11.9 ; Essential hypertension I10 ; Acquired hypothyroidism E03.9 ; History of anemia Z86.2 and Coronary artery disease involving [place] coronary artery of [place] heart without angina pectoris I25.10 [facility] [address] [facility] [id number] [place] [address]- 4099 Apr, IMMUNIZATIONS No Known Immunizations SOCIAL HISTORY Never Assessed REASON FOR VISIT Hypertension f/u., C/o of edema and SOA. -THOMPSON Jones PLAN OF CARE Activity Details Follow Up 2 Months with Katie for f/u HTN and shortness of breath Reason: VITAL SIGNS Height 5'4" in 2016-11-27 Weight 271 lbs 2016-11-27 Temperature 98 degrees Fahrenheit 2016-11-27 Heart Rate 78 bpm 2016-11-27 Respiratory Rate 20 2016-11-27 BMI 46.51 kg/m2 2016-11-27 Blood pressure systolic 140 mmHg 2016-11-27 Blood pressure diastolic 70 mmHg 2016-11-27 MEDICATIONS Medication Instructions Dosage Frequency Start Date End Date Duration Status Glimepiride 2 MG Orally 2 times a day 1 12h Active Zyrtec Allergy 10 MG Orally Once a day 1 tablet 24h Active Metformin HCl 1000 MG Orally Twice a day 1 tablet with meals 12h 30 Active Levothyroxine Sodium 150 MCG Orally Once a day 1 tablet on an empty stomach in the morning 24h Active Aspir-81 81 MG Orally Once a day 1 tablet 24h Active Enalapril Maleate 20 MG Orally Once a day 1 tablet 24h Active Benadryl 25 MG Active Omeprazole 20 MG Orally Once a day 2 capsules 24h Active Eliquis 5 mg Orally Once a day 1 tablet 24h Active Repatha 140 MG/ML 1 ml Active Clobetasol Prop Crea-[place] Tar Active Tramadol HCl 50 mg Orally three times daily as needed 1 tablet Active Mobic 15 mg Orally Once a day 1 tablet 24h Active Glucosamine 1500 Complex - Active Metoprolol Succinate ER 50 mg Orally twice a day 50mg in the am and 100mg every night 12h Active RESULTS Name Result Date Reference Range [employer] 2016-11-27 PROCEDURES Procedure Date Ordered Result Body Site No Charge November 27, 2016 INSTRUCTIONS MEDICATIONS ADMINISTERED No Known Medications MEDICAL [...]
--- OUTSIDE RECORDS SUMMARY | 2017-11-06 12:18 | XMS REPORT ---
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 Active 568395769 Problem Non-insulin treated type 2 diabetes mellitus E11.9 Active 285764656 Problem Paroxysmal atrial fibrillation I48.0 Active 409511459 Problem Psoriasis L40.9 Active 3024055 Problem Non-intractable cyclical vomiting with nausea G43.A0 Active 60408498 Problem Reflux gastritis K29.60 Active 38098975 Problem History of anemia Z86.2 Active 500379163 Problem Coronary artery disease involving sycuan coronary artery of sycuan heart without angina pectoris I25.10 Active 6287125734804 Problem 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 Active 027643184 Problem Essential hypertension I10 Active 64387387 Problem Non-insulin dependent type 2 diabetes mellitus E11.9 Active 96628958 Problem Acquired hypothyroidism E03.9 Active 378329472 ALLERGIES Substance Reaction Event Type Date Status Cefadroxil nausea Drug Allergy Feb, Active ALL STATINS nausea Non Drug Allergy Feb, Active ENCOUNTERS Encounter Location Date Diagnosis [facility] [address] [facility] [id number] [address] October, [facility] [address] [facility] [id number] [place] [address] Sep, Coronary artery disease involving sycuan coronary artery of sycuan heart without angina pectoris I25.10 [facility] [address] [facility] [id number] [place] [address] Sep, [facility] [id number] [place] [address] Sep, Angina pectoris syndrome I20.9 ; Paroxysmal atrial fibrillation I48.0 ; Microcytic anemia D50.9 ; 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 and 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 [facility] [id number] [place] [address] Aug, Non-insulin dependent type 2 diabetes mellitus E11.9 ; Microcytic anemia D50.9 ; Essential hypertension I10 and Acquired hypothyroidism E03.9 [facility] [place] [address] [address] Jul, [place] [address] [address] Jul, [place] [address] [address] Jun, [place] [address] [address] May, [place] [address] [address] May, History of anemia Z86.2 [facility] [address] [address] May, [facility] [address] [address] May, [place] [address] [address] May, Non-insulin treated type 2 diabetes mellitus E11.9 [facility] [address] [address] Apr, Abdominal pain, left upper quadrant R10.12 ; Right hand weakness R29.898 ; Essential hypertension I10 and Non-intractable cyclical vomiting with nausea G43.A0 [facility] [place] [address] [place] [address] Apr, [facility] [address] [address] Apr, Non-insulin treated type 2 diabetes mellitus E11.9 ; Essential hypertension I10 and Acquired hypothyroidism E03.9 [facility] [id number] [place] [address] Mar, Encounter for immunization Z23 [facility] [place] [address] [address] Mar, [facility] [address] [address] Feb, Microcytic anemia D50.9 ; Pain of left great toe M79.675 and Reflux gastritis K29.[address] [address] Feb, Coronary artery disease involving sycuan coronary artery of sycuan heart without angina pectoris I25.10 and Acquired hypothyroidism E03.9 [facility] [place] [id number] [place] [address] Jan, Psoriasis L40.9 ; Paroxysmal atrial fibrillation I48.0 ; Shortness of breath R06.02 and Microcytic anemia D50.9 [facility] [place] [id number] [place] [address] Dec, [facility] [place] [id number] [place] [address] Dec, [facility] [id number] [place] [address] Dec, Coronary artery disease involving sycuan coronary artery of sycuan heart without angina pectoris I25.10 [facility] [place] [id number] [place] [address] Nov, Therapeutic drug monitoring Z51.81 ; Essential hypertension I10 ; Microcytic anemia D50.9 and Shortness of breath R06.02 [place] [address] [address] Nov, Acquired hypothyroidism E03.9 [facility] [id number] [place] [address] October, [facility] [id number] [place] [address] Sep, Coronary artery disease involving sycuan coronary artery of sycuan heart without angina pectoris I25.10 [facility] [id number] [place] [address] 17 Aug, 2016 [facility] [id number] [place] [address] Aug, Essential hypertension I10 [facility] [id number] [place] [address] Jul, Acquired hypothyroidism E03.9 ; Essential hypertension I10 ; Non-insulin treated type 2 diabetes mellitus E11.9 and Coronary artery disease involving sycuan coronary artery of sycuan heart without angina pectoris I25.10 [facility] [address] [address] Jul, [facility] [id number] [place] [address] Jul, Angina pectoris syndrome I20.9 and Essential hypertension I10 [facility] [address] [place] [address] Jul, [facility] [address] [address] Jun, [facility] [address] [place] [address] May, Abscess L02.91 [facility] [id number] [place] [address] Apr, Non-insulin dependent type 2 diabetes mellitus E11.9 ; Essential hypertension I10 ; Acquired hypothyroidism E03.9 ; History of anemia Z86.2 and Coronary artery disease involving sycuan coronary artery of sycuan heart without angina pectoris I25.10 [facility] [place] [address] [facility] [id number] [place] [address] Apr, IMMUNIZATIONS No Known Immunizations SOCIAL HISTORY Never Assessed REASON FOR VISIT f/u--tcuppettRN, Left great toe has a red area that she would like looked at. Was ran over by power wheelchair several months ago. , Right inner ankle pain that is constant, but when anything touches the area causes a sharp pain, Blood sugars running high. A1c 8.1 in January PLAN OF CARE Activity Details Follow Up 2 Months with Katie f/u DM Reason: VITAL SIGNS Height 5'4" in 2017-03-09 Weight 265.1 lbs 2017-03-09 Temperature 98.4 degrees Fahrenheit 2017-03-09 Heart Rate 76 bpm 2017-03-09 Respiratory Rate 20 2017-03-09 BMI 45.50 kg/m2 2017-03-09 Blood pressure systolic 122 mmHg 2017-03-09 Blood pressure diastolic 68 mmHg 2017-03-09 MEDICATIONS Medication Instructions Dosage Frequency Start Date End Date Duration Status Metoprolol Succinate ER 100 mg Orally Once a day 1 tablet at bedtime 24h Feb, 90 days Active Glimepiride 2 MG Orally 2 times a day 1 12h Active Furosemide 20 mg Orally Once a day as needed 1 tablet Jan, 45 days Active Glucosamine 1500 Complex - Active Protonix 40 MG Orally Once a day 1 tablet 24h Active Metoprolol Succinate ER 50 mg Orally Once a day 1 tablet in am 24h Active Levothyroxine Sodium 150 MCG Orally Once a day 1 tablet on an empty stomach in the morning 24h Active Tramadol HCl 50 mg Orally three times daily as needed 1 tablet Active Clobetasol Propionate 0.05 % Externally Twice a day, PRN 1 application to affected area Jan, Active Metformin HCl 1000 MG Orally Twice [...]
--- NOTE | 2017-11-06 13:34 | Diagnostic Imaging Report ---
Indication: Shortness of breath at night. Comparison made with prior examination from 10/03/2017. Findings: There is cardiomegaly. There is some venous congestion. There is no pleural effusion or pneumothorax. There are patchy bibasal infiltrates. IMPRESSION: Patchy bibasal infiltrates. Cardiomegaly and some minimal central pulmonary venous congestion. Dictated by: Dictated on workstation # [id number]
[2017-11-06 13:50] LABS: ALBUMIN 3.5 GM/DL (3.2-4.5); BILIRUBIN,TOTAL 0.4 MG/DL (0.1-1.0); CREATININE SERUM 1.3 MG/DL (0.60-1.30); TOTAL PROTEIN 6.8 GM/DL (6.4-8.2)
--- NOTE | 2017-11-06 14:03 | ED General ---
General Chief Complaint: Respiratory Problems Stated Complaint: SOB Nursing Triage Note: c/o SOA SINCE THU NIGHT. STATES THAT SHE IS SWELLING ALL OVER. 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 She has been disabled as a function of anemia which is apparently thought to be of chronic blood loss. She has had previous GI workup without definition of bleeding source. She also has chronic atrial fibrillation but has not taken blood thinners because of her blood loss. Her last transfusion was approximately one month ago. She is known to have atypical antibodies and there will be difficulty and getting a good crossmatch. It is anticipated that it may take several hours before blood is available to us. She is also diabetic and has had relatively poor control in the recent past. Timing/Duration: 6-7 Days Associated Systoms: Shortness of Air, Other (peripheral edema) Allergies and Home Medications Allergies Coded Allergies: Mmbgdub-Hep-Tch Reductase Inhibitor (Verified Allergy, Intermediate, GI UPSET, N/V, 11/06/17) cefadroxil (Unverified Allergy, Mild, 01/01/17) diltiazem (Verified Allergy, Unknown, mouth burning and swelling, 02/23/17) Home Medications Amoxicillin 500 Mg Capsule, 500 MG PO TIDWM Prescribed by: JULY CULLEN on 10/05/17 1333 Cetirizine HCl 10 Mg Tablet, 10 MG PO DAILY, (Reported) Folic Acid 0.8 Mg Capsule, 0.8 MG PO DAILY, (Reported) Furosemide 20 Mg Tablet, 20 MG PO HS, (Reported) Glimepiride 2 Mg Tablet, 2 MG PO BID, (Reported) Gluc 2Kcl/Chondr/Caty Hy/Hy AC 1 Each Capsule, 1 TAB PO BID, (Reported) Levothyroxine Sodium 200 Mcg Tablet, 200 MCG PO DAILY, (Reported) TAKES ALONG WITH LEVOTHYROXINE 200 MCG Levothyroxine Sodium 25 Mcg Tablet, 25 MCG PO DAILY, (Reported) TAKES ALONG WITH LEVOTHYROXINE 200 MCG Metformin HCl 1,000 Mg Tablet, 1,000 MG PO BID, (Reported) Metoprolol Succinate 100 Mg Tab.er.24h, 100 MG PO HS, (Reported) Metoprolol Succinate 50 Mg Tab.er.24h, 50 MG PO AM, (Reported) Nitroglycerin 0.4 Mg Tab.subl, 0.4 MG PO UD PRN for CHEST PAIN, (Reported) Omeprazole 40 Mg Capsule.dr, 40 MG PO BID, (Reported) Ondansetron HCl 8 Mg Tablet, 8 MG PO Q8H PRN for NAUSEA/VOMITING-1ST LINE, ( Reported) Promethazine HCl 25 Mg Tablet, 25 MG PO Q6H PRN for NAUSEA/VOMITING-4TH LINE, ( Reported) Rosuvastatin Calcium 5 Mg Tablet, 5 MG PO HS Prescribed by: JULY CULLEN on 10/05/17 1333 Sucralfate 1 Gm Tablet, 1 GM PO QID, (Reported) Tizanidine HCl 4 Mg Tablet, 4 MG PO TID PRN for MUSCLE SPASMS, (Reported) Tramadol HCl 50 Mg Tablet, 50 MG PO TID PRN for PAIN-MODERATE, (Reported) Patient Home Medication List Home Medication List Reviewed: Yes Review of Systems Constitutional: see HPI EENTM: no symptoms reported Respiratory: dyspnea on exertion Cardiovascular: palpitations Psychiatric/Neurological: No Symptoms Reported Hematologic/Lymphatic: See HPI, Anemia Past Psfeiek-Skacmn-Skvugv Hx Patient Social History Alcohol Use: Denies Use Recreational Drug Use: No Smoking Status: Former Smoker Type Used: Cigarettes Former Smoker, Quit: Jun 15, 1984 Recent Foreign Travel: No Contact w/Someone Who Travel: No Recent Infectious Disease Expo: No Recent Hopitalizations: No Physical Abuse: No Sexual Abuse: No Mistreated: No Fear: No Immunizations Up To Date Tetanus Booster (TDap): Unknown PED Vaccines UTD: Yes Date of Pneumonia Vaccine: Jun 23, 2016 Date of Influenza Vaccine: Mar 15, 2017 Seasonal Allergies Seasonal Allergies: Yes Past Medical History Surgeries: Yes (L ANKLE REPAIR, L KNEE SCOPE X2) Adenoidectomy, Tonsillectomy, Tubal Ligation Respiratory: No Currently Using CPAP: No Currently Using BIPAP: No Cardiac: Yes (CHF, STENT X1) Atrial Fibrillation, Coronary Artery Disease, Heart Attack, High Cholesterol, Hypertension Neurological: No Reproductive Disorders: No Female Reproductive Disorders: Denies Sexually Transmitted Disease: No HIV/AIDS: No Genitourinary: No Renal Failure Gastrointestinal: Yes (POSS GI BLEED, POLYP REMOVAL ) Gastroesophageal Reflux Musculoskeletal: Yes Degenerate Disk Disease, Arthritis Endocrine: Yes Diabetes, Non-Insulin dep HEENT: No Loss of Vision: Denies Hearing Impairment: Denies Cancer: No Psychosocial: No Nursing Suicide Risk Score: 0 Integumentary: Yes Psoriasis Blood Disorders: Yes (Iron deficiency, states not sure of her diagnosis) Adverse Reaction/Blood Tranf: Yes (Antibody JKA) Family Medical History Arthritis G8 BROTHER Completed stroke 19 MOTHER FH: anemia 19 MOTHER FH: lupus G8 SISTER FH: throat cancer 19 FATHER Hypertension G8 SISTER Myocardial infarction 19 MOTHER Thyroid disease 19 MOTHER G8 SISTER Hypertension, Stroke Physical Exam Vital Signs Vital Signs - First Documented 11/06/17 12:10 Temp 97.8 Pulse 66 Resp 20 B/P (MAP) 128/59 (82) Pulse Ox 98 Capillary Refill : Less Than 3 Seconds General Appearance: No Apparent Distress, WD/WN Eyes: Bilateral Eye Normal Inspection HEENT: Normal ENT Inspection Neck: Full Range of Motion, Normal Inspection, Non Tender, Supple, Carotid Bruit Respiratory: Chest Non Tender, Lungs Clear, Normal Breath Sounds Cardiovascular: Irregularly Irregular Gastrointestinal: Normal Bowel Sounds Neurologic/Psychiatric: Alert, Oriented x3, No Motor/Sensory Deficits, Normal Mood/Affect, wet process miller II-XII Norm as Tested Skin: Normal Color Lymphatic: No Adenopathy Comments 2-3+ pitting pretibial edema to the knees Progress/Results/Core Measures Suspected Sepsis Recent Fever Within 48 Hours: No Infection Criteria Present: None New/Unexplained Altered Menta: No Sepsis Screen: No Definite Risk SIRS Temperature:97.8 Pulse: 66 Respiratory Rate: 20 Blood Pressure 128 /59 Mean: 82 Laboratory Tests 11/06/17 11:40: Creatinine 1.30, Total Bilirubin 0.4 Results/Orders Lab Results Laboratory Tests Test 11/06/17 11:40 Range/Units Sodium Level 138 135-145 MMOL/L Potassium Level 5.0 3.6-5.0 MMOL/L Chloride Level 105 98-107 MMOL/L Carbon Dioxide Level 25 21-32 MMOL/L Anion Gap 8 5-14 MMOL/L Blood Urea Nitrogen 25 H 7-18 MG/DL Creatinine 1.30 0.60-1.30 MG/DL Estimat Glomerular Filtration Rate 42 BUN/Creatinine Ratio 19 Glucose Level 126 H 70-105 MG/DL Calcium Level 9.0 8.5-10.1 MG/DL Total Bilirubin 0.4 0.1-1.0 MG/DL Aspartate Amino Transf (AST/SGOT) 17 5-34 U/L Alanine Aminotransferase (ALT/SGPT) 9 0-55 U/L Alkaline Phosphatase 50 40-136 U/L Total Protein 6.8 6.4-8.2 GM/DL Albumin 3.5 3.2-4.5 GM/DL My Orders Orders - MODESTO BALDERRAMA MD Comprehensive Metabolic Panel (11/06/17 12:35) Red Cells Leukocytes Reduced (11/06/17 12:35) Chest 1 View, Ap/Pa Only (11/06/17 12:35) Type And Screen (11/06/17 12:35) Vital Signs/I&O 11/06/17 12:10 Temp 97.8 Pulse 66 Resp 20 B/P (MAP) 128/59 (82) Pulse Ox 98 Capillary Refill : Less Than 3 Seconds Blood Pressure Mean: 82 Departure Impression Primary Impression: Transfusion-dependent anemia Additional Impression: congestive heart failure Disposition: ADMITTED INPATIENT Condition: Stable/Unchanged Admissions Decision to Admit Reason: Admit from ER (General) Decision to Admit/Date: November 06, 2017 Time/Decision to Admit Time: 14:06 Departure-Patient Inst. Referrals: JAMES TORRES MD (PCP/Family) Primary Care Physician MODESTO BALDERRAMA MD November 06, 2017 14:03
--- OUTSIDE RECORDS SUMMARY | 2017-11-06 15:10 | XMS REPORT | Encounter Summary ---
Author Author [facility] Organization [facility] Address Unknown Phone Unavailable Care Team Providers Care Furnace And Wash Equipment Operator Name Role Phone Carla Wilson MD PCP Naima Field MD Unavailable Encounter Details Date Type Department Care Team Description 09/28/2017 [facility] Sri Okeefe MD Encounter [facility] - OP Lab [address] [place] [address] [place], [place] [address] [place] [address] [phone] Social History Tobacco Use Types Packs/Day Years [...] Specimen Performing Laboratory Blood MAIN LAB [address] [place] [address] * PERIPHERAL SMEAR (09/28/2017 3:42 PM) Component [...] Specimen Performing Laboratory Blood MAIN LAB [address] [place] [address] * LDH-LACTATE DEHYDROGENASE (09/28/2017 3:42 PM) Component Value Ref Range Lactate Dehydrogenase 173 100 - 210 U/L Specimen Performing Laboratory Blood MAIN [facility] [address] [place] [address] * HAPTOGLOBIN (09/28/2017 3:42 PM) Component Value Ref Range Haptoglobin 140 16 - 200 MG/DL Specimen Performing Laboratory Blood MAIN [facility] [address] [place] [address] * IRON + BINDING CAPACITY + %SAT+ FERRITIN (09/28/2017 3:42 PM) Component Value Ref Range Iron 51 50 - 160 MCG/DL Iron Binding-TIBC 422 (H) 270 - 380 MCG/DL % Saturation 12 (L) 28 - 42 % Ferritin 146 10 - 200 NG/ML Specimen Performing Laboratory Blood MAIN LAB [address] [place] [address] * RETICULOCYTE COUNT (09/28/2017 3:42 PM) Component Value Ref Range Retic, Uncorrected 4.1 (H) 0.5 - 2.0 % Retic, Corrected 2.4 % Retic, Absolute 106.3 (H) 30 - 94 K/UL Specimen Performing Laboratory Blood MAIN LAB [address] [place] [address] * CBC AND DIFF (09/28/2017 3:42 PM) [...] - 0.20 K/UL Specimen Performing Laboratory Blood [facility] [address] [address] in this encounter Visit Diagnoses Diagnosis Anemia, unspecified type
--- OUTSIDE RECORDS SUMMARY | 2017-11-06 15:10 | XMS REPORT | Encounter Summary ---
Author Author [facility] Organization [facility] Address Unknown Phone Unavailable Care Team Providers Care Watch Case Polisher Name Role Phone Carla Wilson MD PCP Naima Field MD Unavailable Encounter Details Date Type Department Care Team Description 09/23/2017 Telephone [facility] Phu Erazo RN Cancer Center - Exam [address] [place] [id number] Social History Tobacco Use Types Packs/Day Years Used Date Never Assessed Sex Assigned at Date Recorded Not on file as of this encounter Miscellaneous Notes * Telephone Encounter - Phu Erazo RN - 09/23/2017 9:00 AM CDT Formatting of this note may be different from the original. Navigation Intake Assessment Document Patient Name: Deborah iFelds : 1955 Insurance: Self Pay Appointment Info: Future Appointments Date Time Provider Department Center 09/28/2017 2:00 PM Sri Okeefe MD [facility] Exam 09/28/2017 2:00 PM TARIK LEGGETT [facility] Exam Diagnosis & Reason for Visit: Iron Deficiency anemia, GI blood loss Physician Info: Referring Physician: Self Referral PCP: Carla Wilson MD Contact Name & Number: [phone] Medical Oncologist: Naima Grace MD History of [...]
--- OUTSIDE RECORDS SUMMARY | 2017-11-06 15:10 | XMS REPORT | Encounter Summary ---
Author Author [facility] Organization [facility] Address Unknown Phone Unavailable Care Team Providers Care Database Design Analyst Name Role Phone Carla Wilson MD PCP Naima Field MD Unavailable Reason for Visit * Reason Comments Results Encounter Details Date Type Department Care Team Description 10/01/2017 Telephone [facility] Sri Okeefe MD Results Cancer [facility] - OP Exam [address] [place] [address] [phone] [address] [phone] Social History Tobacco Use Types Packs/Day Years [...]
--- OUTSIDE RECORDS SUMMARY | 2017-11-06 15:10 | XMS REPORT | Encounter Summary ---
Author Author [facility] Organization [facility] Address Unknown Phone Unavailable Care Team Providers Care Regional Guide Name Role Phone Carla Wilson MD PCP Naima Field MD Unavailable Reason for Visit * Reason Comments Heme/Onc Care Encounter Details Date Type Department Care Team Description 09/28/2017 Office Visit [facility] Sri Okeefe MD Anemia, unspecified type Cancer Center - OP Exam [address] (Primary Dx) [address] [phone] [address] [phone] Social History Tobacco Use Types Packs/Day Years [...] If you need anything, call Chichi at [phone]. You can also email at [email or web address] or through [email or web address]. If you do send an email and don't get a response within 1-2 days, please call. My email is not accessible to anyone else when I am out of the office, and I'd hate to come back from vacation to hear that you' ve been waiting on a response for weeks! My fax number is [phone]. in this encounter Progress Notes * Sri Okeefe MD - 09/28/2017 2:00 PM CDT Formatting of this note may be different from the original. Date of Service: 09/28/2017 Subjective: Reason for Visit: New patient visit, self-referral. Heme/Onc Care Second opinion for anemia/GI bleeding. Gum Worker, Dr. Naima Field. Deborah Fields is a 62 y.o. female. Cancer Staging No matching staging information was found for the patient. History of Present Illness Deborah is a 62-year-old female. She is from [facility]. She is being seen at [facility]. Patient had developed anemia back in 2013 , with hemoglobin of 9.1 g. She was seen by hair and makeup designer and workup include normal serum protein electrophoresis. [...] stay ahead. Perhaps refer to a different pump assembler who may be able to do a push enteroscopy that will see directly see the proximal portion of the small intestine, at least. Dr. Field said he will refer her to a different GI clinic. He can call me at any time at [phone]. We will call the patient with the [...] MU/ML Specimen Performing Laboratory Blood MAIN LAB [address] [place] [address] * PERIPHERAL SMEAR (09/28/2017 3:42 PM) Component [...] report. Specimen Performing Laboratory Blood MAIN LAB [address] [place] [address] * LDH-LACTATE DEHYDROGENASE (09/28/2017 3:42 PM) Component Value Ref Range Lactate Dehydrogenase 173 100 - 210 U/L Specimen Performing Laboratory Blood [facility] [address] [place] [address] * HAPTOGLOBIN (09/28/2017 3:42 PM) Component Value Ref Range Haptoglobin 140 16 - 200 MG/DL Specimen Performing Laboratory Blood [facility] [address] [place] [address] * IRON + BINDING CAPACITY + %SAT+ FERRITIN (09/28/2017 3:42 PM) Component Value Ref Range Iron 51 50 - 160 MCG/DL Iron Binding-TIBC 422 (H) 270 - 380 MCG/DL % Saturation 12 (L) 28 - 42 % Ferritin 146 10 - 200 NG/ML Specimen Performing Laboratory Blood [facility] [address] [place] [address] * RETICULOCYTE COUNT (09/28/2017 3:42 PM) Component Value Ref Range Retic, Uncorrected 4.1 (H) 0.5 - 2.0 % Retic, Corrected 2.4 % Retic, Absolute 106.3 (H) 30 - 94 K/UL Specimen Performing Laboratory Blood MAIN LAB [address] [place], [place] [address] [place] [address] * CBC AND DIFF (09/28/2017 3:42 PM) [...] - 0.20 K/UL Specimen Performing Laboratory Blood [facility] [id number] [place] [id number] in this encounter Visit Diagnoses Diagnosis Anemia, unspecified type - Primary
--- OUTSIDE RECORDS SUMMARY | 2017-11-06 15:10 | XMS REPORT | Clinical Summary ---
Author Author [facility] Organization [facility] Address Unknown Phone Unavailable Care Team Providers Care Machine Fitter Name Role Phone Carla Wilson MD PCP Naima Field MD Unavailable Source Comments Some departments are not documenting in the electronic medical record. If you do not see the information that you expected, contact Release of Information in the Health Information Management department at [phone] for further assistance in locating additional records.[facility] Allergies Active Allergy Reactions Severity Noted [...] NG/ML Specimen Performing Laboratory Blood MAIN LAB [address] [place] [address] * PERIPHERAL SMEAR (09/28/2017 3:42 PM) Component [...] Specimen Performing Laboratory Blood MAIN LAB [address] [place] [address] * ERYTHROPOIETIN (09/28/2017 3:42 PM) Component Value Ref Range Erythropoietin 48.1 (H) 3.7 - 29.5 MU/ML Specimen Performing Laboratory Blood MAIN LAB [address] [place] [address] * RETICULOCYTE COUNT (09/28/2017 3:42 PM) Component Value Ref Range Retic, Uncorrected 4.1 (H) 0.5 - 2.0 % Retic, Corrected 2.4 % Retic, Absolute 106.3 (H) 30 - 94 K/UL Specimen Performing Laboratory Blood MAIN LAB [address] [place] [address] * CBC AND DIFF (09/28/2017 3:42 PM) [...] - 0.20 K/UL Specimen Performing Laboratory Blood [facility] [address] [address] * LDH-LACTATE DEHYDROGENASE (09/28/2017 3:42 PM) Component Value Ref Range Lactate Dehydrogenase 173 100 - 210 U/L Specimen Performing Laboratory Blood MAIN LAB [address] [place] [address] * HAPTOGLOBIN (09/28/2017 3:42 PM) Component Value Ref Range Haptoglobin 140 16 - 200 MG/DL Specimen Performing Laboratory Blood MAIN LAB [address] [place] [address] from Last 3 Months
[2017-11-06] MEDS ORDERED: NS (IVPB) 250 ML ONE (15:53)
[2017-11-06] MEDS ORDERED: FUROSEMIDE 40 MG/4 ML INJ (LASIX) IV NR ×2 (16:00)
[2017-11-06] MEDS ORDERED: CATHETER FLUSH 10 ML SYR IV PRN (16:00)
[2017-11-06] MEDS ORDERED: CATHETER FLUSH 10 ML SYR IV SCH (22:00)
--- OUTSIDE RECORDS SUMMARY | 2017-11-16 09:25 | XMS REPORT | Clinical Summary ---
Author Author [facility] Organization [facility] Address Unknown Phone Unavailable Care Team Providers Care Medical Insurance Coder Name Role Phone Carla Wilson MD PCP Naima Field MD Unavailable Source Comments Some departments are not documenting in the electronic medical record. If you do not see the information that you expected, contact Release of Information in the Health Information Management department at [phone] for further assistance in locating additional records.[facility] Allergies Active Allergy Reactions Severity Noted Date Comments Diltiazem RASH, NAUSEA AND Medium 09/28/2017 Sore mouth VOMITING, SEE COMMENTS Cefadroxil NAUSEA AND VOMITING Low 09/28/2017 Pravastatin NAUSEA AND VOMITING Low 09/28/2017 Simvastatin NAUSEA AND VOMITING Low 09/28/2017 Sulfa (Sulfonamide RASH Medium 11/11/2017 Antibiotics) Current Medications Prescription Sig. Disp. Refills Start [...] twice Active tablet daily. metFORMIN (GLUCOPHAGE) Take 1,000 mg by mouth Active 500 mg tablet twice daily with meals. LOPERAMIDE HCL Take 1 tablet by mouth as Active (ANTI-DIARRHEA PO) Needed. ondansetron (ZOFRAN) 8 mg Take 8 mg by mouth every Active tablet 8 hours as needed for Nausea or Vomiting. electrolyte GUT PEG 2000 mls as directed for 4000 mL 0 11/12/19 Active (NULYTELY, COLYTE, capsule endoscopy 18 GAVILYTE-N) 420 gram oral solution Active Problems Problem Noted Date Absolute anemia 11/13/2017 Overview: Added automatically from request for surgery [id number] Anemia 09/28/2017 Encounters Date Type Specialty Care Team Description 11/11/2017 Office Visit Gastroenterology Paul Quintero, Iron deficiency anemia, unspecified iron deficiency anemia type (Primary Dx); Rectal bleeding; Rectal pain; Nausea and vomiting, intractability of vomiting not specified, unspecified vomiting type 11/11/2017 Prep for Case Gastroenterology Dannielle Covington MD Other iron deficiency anemia (Primary Dx) 10/01/2017 Telephone Oncology Sri Okeefe MD Results [...] Vital Sign Reading Time Taken Blood Pressure 141/50 11/11/2017 2:22 PM CDT Pulse 77 11/11/2017 2:22 PM CDT Temperature 37.3 C (99.2 F) 11/11/2017 2:22 PM CDT Respiratory Rate 18 09/28/2017 2:10 PM CDT Oxygen Saturation 99% 09/28/2017 2:10 PM CDT Inhaled Oxygen - - Concentration Weight 125.6 kg (277 lb) 11/11/2017 2:22 PM CDT Height 162.6 cm (5' 4") 11/11/2017 2:22 PM CDT Body Mass Index 47.55 11/11/2017 2:22 PM CDT Plan of Treatment Date Type Specialty Care Team Description 11/18/2017 Surgery Jose Pablo, CAPSULE ENDOSCOPY MBBS regarding [facility] [address] [place] [address] [phone] 11/18/2017 Procedure Pass 11/18/2017 Hospital Dannielle Covington MD Absolute anemia Encounter [address] [place] [address] Health Maintenance Due Date Last Done Comments HEPATITIS C SCREENING 1957 PHYSICAL (COMPREHENSIVE) 1964 EXAM PERTUSSIS VACCINE 1968 HIV SCREENING 1972 TETANUS VACCINE 1974 CERVICAL CANCER SCREENING 1987 BREAST CANCER SCREENING 1997 COLORECTAL CANCER 2007 SCREENING SHINGLES VACCINE 2017 INFLUENZA VACCINE 03/15/2018 03/15/2017 (Previously completed), 04/09/2000, 03/27/1999, Additional history exists Results * IRON + BINDING CAPACITY + %SAT+ FERRITIN (09/28/2017 3:42 PM) Component Value Ref Range Iron 51 50 - 160 MCG/DL Iron Binding-TIBC 422 (H) 270 - 380 MCG/DL % Saturation 12 (L) 28 - 42 % Ferritin 146 10 - 200 NG/ML Specimen Performing Laboratory Blood MAIN LAB [address] [place] [address] * PERIPHERAL SMEAR (09/28/2017 3:42 PM) Component [...] report. Specimen Performing Laboratory Blood MAIN LAB [address] [place] [address] * ERYTHROPOIETIN (09/28/2017 3:42 PM) Component Value Ref Range Erythropoietin 48.1 (H) 3.7 - 29.5 MU/ML Specimen Performing Laboratory Blood MAIN LAB [address] [place] [address] * RETICULOCYTE COUNT (09/28/2017 3:42 PM) Component Value Ref Range Retic, Uncorrected 4.1 (H) 0.5 - 2.0 % Retic, Corrected 2.4 % Retic, Absolute 106.3 (H) 30 - 94 K/UL Specimen Performing Laboratory Blood MAIN LAB [address] [place] [address] * CBC AND DIFF (09/28/2017 3:42 PM) [...] [facility] [address] [address] * LDH-LACTATE DEHYDROGENASE (09/28/2017 3:42 PM) Component Value Ref Range Lactate Dehydrogenase 173 100 - 210 U/L Specimen Performing Laboratory Blood [facility] [address] [place] [address] * HAPTOGLOBIN (09/28/2017 3:42 PM) Component Value Ref Range Haptoglobin 140 16 - 200 MG/DL Specimen Performing Laboratory Blood [facility] [address] [place] [address] from Last 3 Months
--- OUTSIDE RECORDS SUMMARY | 2017-11-16 09:25 | XMS REPORT | Encounter Summary ---
Author Author [facility] Organization [facility] Address Unknown Phone Unavailable Care Team Providers Care Machine Cloth Trimmer Name Role Phone Carla Wilson MD PCP Naima Field MD Unavailable Reason for Visit * Reason Comments Heme/Onc Care Encounter Details Date Type Department Care Team Description 09/28/2017 Office Visit [facility] Sri Okeefe MD Anemia, unspecified type Cancer Center - OP Exam [address] (Primary [place]x) [address] [phone] [address] [phone] Social History Tobacco Use Types Packs/Day Years [...] If you need anything, call Chichi at [phone]. You can also email at [email or web address] or through [email or web address]. If you do send an email and don't get a response within 1-2 days, please call. My email is not accessible to anyone else when I am out of the office, and I'd hate to come back from vacation to hear that you' ve been waiting on a response for weeks! My fax number is [phone]. in this encounter Progress Notes * Sri Okeefe MD - 09/28/2017 2:00 PM CDT Formatting of this note may be different from the original. Date of Service: 09/28/2017 Subjective: Reason for Visit: New patient visit, self-referral. Heme/Onc Care Second opinion for anemia/GI bleeding. Anesthesiology Physician, Dr. Naima Field. Deborah Fields is a 62 y.o. female. Cancer Staging No matching staging information was found for the patient. History of Present Illness Deborah is a 62-year-old female. She is from [facility]. She is being seen at [facility]. Patient had developed anemia back in 2013 , with hemoglobin of 9.1 g. She was seen by wire wheeler and workup include normal serum protein electrophoresis. [...] stay ahead. Perhaps refer to a different dietary clerk who may be able to do a push enteroscopy that will see directly see the proximal portion of the small intestine, at least. Dr. Field said he will refer her to a different GI clinic. He can call me at any time at [phone]. We will call the patient with the [...] None in this encounter Plan of Treatment Date Type Specialty Care Team Description 11/18/2017 Surgery Jose Pablo, CAPSULE ENDOSCOPY MBBS regarding [place] [address] [place] [address] [phone] 11/18/2017 Procedure Pass 11/18/2017 [facility] Dannielle Covington MD Absolute anemia Encounter [address] [place], [place] [id number] Name Priority Associated Diagnoses Order Schedule OCCULT BLOOD NON COLON CANCER SCREEN Routine Anemia, unspecified type Expected: 10/05/2017 (Approximate), Expires: 09/28/2018 as of this encounter Results * ERYTHROPOIETIN (09/28/2017 3:42 PM) Component Value Ref Range Erythropoietin 48.1 (H) 3.7 - 29.5 MU/ML Specimen Performing Laboratory Blood [facility] [address] [place] [address] * PERIPHERAL SMEAR (09/28/2017 3:42 PM) Component [...] in this report. Specimen Performing Laboratory Blood [facility] [address] [place] [address] * LDH-LACTATE DEHYDROGENASE (09/28/2017 3:42 PM) Component Value Ref Range Lactate Dehydrogenase 173 100 - 210 U/L Specimen Performing Laboratory Blood [facility] [address] [place] [address] * HAPTOGLOBIN (09/28/2017 3:42 PM) Component Value Ref Range Haptoglobin 140 16 - 200 MG/DL Specimen Performing Laboratory Blood [facility] [address] [place] [address] * IRON + BINDING CAPACITY + %SAT+ FERRITIN (09/28/2017 3:42 PM) Component Value Ref Range Iron 51 50 - 160 MCG/DL Iron Binding-TIBC 422 (H) 270 - 380 MCG/DL % Saturation 12 (L) 28 - 42 % Ferritin 146 10 - 200 NG/ML Specimen Performing Laboratory Blood MAIN LAB [address] [place] [address] * RETICULOCYTE COUNT (09/28/2017 3:42 PM) Component Value Ref Range Retic, Uncorrected 4.1 (H) 0.5 - 2.0 % Retic, Corrected 2.4 % Retic, Absolute 106.3 (H) 30 - 94 K/UL Specimen Performing Laboratory Blood MAIN LAB [address] [place] [address] * CBC AND DIFF (09/28/2017 3:42 PM) [...] K/UL Specimen Performing Laboratory Blood [facility] [address] [address] in this encounter Visit Diagnoses Diagnosis Anemia, unspecified type - Primary
--- OUTSIDE RECORDS SUMMARY | 2017-11-16 09:25 | XMS REPORT | Encounter Summary ---
Author Author [facility] Organization [facility] Address Unknown Phone Unavailable Care Team Providers Care Branch Library Clerk Name Role Phone Carla Wilson MD PCP Naima Field MD Unavailable Reason for Referral * Radiology Services Status Reason Specialty Diagnoses / Referred By Referred To Procedures Contact Contact New Request Radiology Diagnoses Adria, Iron deficiency MD Dannielle anemia, [address] deficiency [place] [address] [place] [address] rocedures Phone: NM GI BLEED [phone] DETECTION Reason for Visit * Reason Comments Abdominal Distention Abdominal pain Anal Bleeding Blood in stools Diarrhea Nausea Anal Pain Vomiting * Consult, Test & Treat (Routine) Status Reason Specialty Diagnoses / Referred By Referred To Procedures Contact Contact No Auth Needed Gastroenterology Diagnoses Naima Field Grisolano, Scott, Anemia MD [place] Unspecified [address] [facility] [address] chronic [place], [place] [address] gastritis [place] [address] [place], [place] bleeding Phone: [phone] Phone: Encounter Details Date Type Department Care Team Description 11/11/2017 Office Visit [facility] Paul Quintero, Iron deficiency anemia, Physicians - Internal unspecified iron Medicine [address] deficiency anemia type [address] [place] [address] (Primary Dx); [place] [address] Rectal bleeding; [phone] Rectal pain; Nausea and vomiting, intractability of vomiting not specified, unspecified vomiting type Social History Tobacco Use Types Packs/Day Years [...] F) 11/11/2017 2:22 PM CDT Respiratory Rate - - Oxygen Saturation - - Inhaled Oxygen - - Concentration Weight 125.6 kg (277 lb) 11/11/2017 2:22 PM CDT Height 162.6 cm (5' 4") 11/11/2017 2:22 PM CDT Body Mass Index 47.55 11/11/2017 2:22 PM CDT in this encounter Functional Status Functional Status Response Date of Assessment Does the patient have a hearing impairment: No 11/11/2017 Does the patient have a visual impairment: Yes 11/11/2017 Does the patient have impaired ambulation: No 11/11/2017 Does the patient have an activity of daily living No 11/11/2017 (ADL) impairment: Does the patient have an instrumental activity of No 11/11/2017 daily living (IADL) impairment: Cognitive Status Response Date of Assessment Does the patient have a cognitive impairment: Yes 11/11/2017 as of this encounter Instructions * Patient Instructions - Halie Sanchez RN - 11/11/2017 3:00 PM CDT Schedule capsule endoscopy [phone], option 2 and follow your prep instructions. Your golytely bowel prep has been sent to your pharmacy. Blood work and may be drawn locally. Please let our office know if you have not received your results within 1 week after having drawn [phone] Schedule ultrasound of the abdomen & Nuclear Medicine bleed scan [phone] in this encounter Progress Notes * Dannielle Covington MD - 11/11/2017 3:00 PM CDT Formatting of this note may be different from the original. Date of Service: 11/11/2017 Subjective: Deborah Fields is a 62 y.o. female. History of Present Illness Ms. Fields, a 62-year-old female with a past medical history of coronary artery disease, stent placed about 7 years ago, had an NSTEMI about 6 weeks ago, hypertension, hyperlipidemia, morbid obesity, hypothyroidism was seen in the clinic today for evaluation of anemia and requirement of multiple blood transfusions over the last 3-4 years. she was found to have anemia about 3 or 4 years ago by her primary care physician at which time she was referred to Dr. Haywood, at [facility] in [facility]. She has been diagnosed with iron deficiency anemia and in the first 3 years also has received 5-6 blood transfusions but in the last 1 year the requirements have intensified even further. She says that initially she was on aspirin 81 mg and Mobic which she was on for years. During those 3 or 4 years initially she has not noticed any overt signs of GI bleed. She denied any melena or hematochezia. In the last year she had episodes of bright red blood per rectum after the bowel movements. She has had 2 upper endoscopies and 2 colonoscopies along with 2 capsule endoscopies. We have the reports of an upper endoscopy as well as a colonoscopy and a capsule endoscopy that was done in July 2017. EGD showed erythematous mucosa throughout the stomach, was in the antrum. A small duodenal polyp was also seen. Duodenum was normal. Gastric biopsies showed ectatic superficial vessels and chronic gastritis. No H pylori. 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 Colonoscopy showed approximately 1 cm cecal polyp and a 0.3 cm ascending colon polyp both of them tubular adenomas. No other abnormalities were noted. The capsule endoscopy study was incomplete as the battery and there were no complete recordings. Patient does have a long-standing history of coronary artery disease and heart failure. She is unable to walk even 2 or 3 steps without having shortness of breath. She says that over the last week she has diuresed quite a bit and now feels a little bit better and feels that she may be able to lay down flat. She has severe swelling throughout her body including her vaginal labia which she has not been able to separate out to clean her personal parts by mouth. She is on Lasix 40 mg and this has been increased from 20 mg just a couple of days ago. She also complains of diarrhea for the last 4-6 months. The bowel movements are [place] scale type , he has 4-6 bowel movements daily, starts bigger and then become smaller as the day progresses. Once or twice a week she has nocturnal bowel movements. She also has episodes of frequent stool incontinence. She does not have to strain to have a bowel movement but sometimes she has to sit on the toilet for about 20 minutes to have a bowel movement. Sometimes she also has sensation of incomplete evacuation. She also has been told that she has vitamin B12 deficiency and for years she has been on vitamin B12 shots. Yesterday her blood workup was done at outside hospital which showed a hemoglobin of 8.5 with an MCV of 100, WBC 4.1, platelets 139 Creatinine 1.3, BUN 25 Total bilirubin 0.4, AST 17, ALP 9, alkaline phosphatase 50, total protein 6.8 and albumin 3.5 Review of Systems Constitutional: Positive for activity change, appetite change, fatigue, fever and unexpected weight change. HENT: Positive for congestion and facial swelling. Eyes: Positive for discharge and itching. Respiratory: Positive for apnea, cough, chest tightness, shortness of breath and wheezing. Cardiovascular: Positive for chest pain, palpitations and leg swelling. Gastrointestinal: Positive for abdominal distention, abdominal pain, anal bleeding, blood in stool, diarrhea, nausea, rectal pain and vomiting. Genitourinary: Positive for enuresis. Musculoskeletal: Positive for back pain, gait problem, joint swelling and myalgias. Neurological: Positive for dizziness, tremors, weakness, light-headedness and headaches. Hematological: Bruises/bleeds easily. Psychiatric/Behavioral: Positive for sleep disturbance. All other systems reviewed and are negative. Objective: CETIRIZINE HCL (ZYRTEC PO) Take 1 [...] Needed. metFORMIN (GLUCOPHAGE) 500 mg tablet Take 1,000 mg by mouth twice daily with meals. metoprolol XL (TOPROL XL) 100 mg extended release tablet Take 100 mg by mouth twice daily. nitroglycerin (NITROSTAT) 0.[address] 0.4 mg under tongue every 5 minutes as needed for Chest Pain. Max of 3 tablets, call 911. omeprazole DR(+) (PRILOSEC) 40 mg capsule Take 40 mg by mouth twice daily. ondansetron (ZOFRAN) 8 mg tablet Take 8 mg by mouth every 8 hours as needed for Nausea or Vomiting. promethazine (PHENERGAN) 25 mg tablet Take 25 mg by mouth every 6 hours as needed for Nausea or Vomiting. sucralfate (CARAFATE) 1 gram tablet Take 1 g by mouth four times daily. Take on an empty stomach. traMADol (ULTRAM) 50 mg tablet Take 50 mg by mouth every 6 hours as needed for Pain. Vitals: 11/11/17 1422 BP: 141/50 Pulse: 77 Temp: 37.3 C (99.2 F) TempSrc: Oral Weight: 125.6 kg (277 lb) Height: 162.6 cm (64") Body mass index is 47.55 kg/m. Physical Exam Neuro: AAO x 3. Grossly normal. HEENT: PERRL, EOMI, no scleral icterus, no cervical or supraclavicular lymphadenopathy. CVS: S1 and S2 were heard. KAVITA+. Respiratory system: Mild bibasilar crackles Abd: Soft and non-tender. Obese, anasarca. BS present, no guarding, rigidity or rebound Rectal: Deferred Extremities: Pedal edema 3-4+ bilaterally Skin: Rash present Musculoskeletal: Joint swelling or erythema present Psych: Normal affect, memory, concentration and judgement Assessment and Plan: 62-year-old female with a past medical history of coronary artery disease, stent placed about 7 years ago, had an NSTEMI about 6 weeks ago, hypertension, hyperlipidemia, morbid obesity, hypothyroidism was seen in the clinic today for evaluation of anemia and requirement of multiple blood transfusions over the last 3-4 years. With a history of aspirin and Mobic use 3 or 4 years ago, 1 of the differentials is peptic ulcer disease. She however did not have any endoscopic procedures at that time and denied any melena. She has not taken any NSAIDs or Mobic over the last 4 years. She however has been found to have iron deficiency based on labs done in September 2017 in our hospital and has also been taking B12 shots every month for the last several years. She has been told that she has borderline low B12 levels. The cause of iron deficiency anemia may be chronic blood loss. The cause of B12 is not currently known. An EGD and colonoscopy were done on 17 July 2017 by a surgeon at [place], [place]. EGD shows diffusely erythematous mucosa of the stomach and biopsy of the gastric mucosa showed ectatic vessels which make me suspicious about portal hypertensive gastropathy. Patient does have metabolic syndrome and is high risk for nonalcoholic steatohepatitis and cirrhosis. Platelet count of 139 that she had yesterday is concerning for this. She also denied much alcohol use. Her long-standing heart failure also puts her at a high risk for portal hypertension. Ideally we would have liked to evaluate her anemia with upper endoscopy, colonoscopy as well as capsule endoscopy. She however currently is in heart failure and 6 weeks ago had an NSTEMI. In view of recent upper endoscopy as well as colonoscopy, there is no major concern for malignancy at this time and differential diagnosis for chronic blood loss in her would be bleeding from AVMs or may be oozing from portal hypertensive gastropathy, although no formal diagnosis of cirrhosis has been made. We would like to postpone any endoscopic procedures for the next 3-6 months. We will order a capsule endoscopy and look for any signs of bleeding at this time. The capsule endoscopy is negative we will do a tagged RBC scan. Due to mildly higher creatinine levels and difficulty optimizing the diuretics because of the creatinine, we will not do a CT angiogram at this time. We will check B12 levels, folate levels Check antiparietal cell antibody levels Check anti-tTG Ultrasound of the abdomen with Doppler, capsule endoscopy and tagged RBC scan. Return to clinic in 3 months to reevaluate her for possible endoscopies. In the meantime she should see her signwriter to get optimized in terms of cardiac failure. Paul Quintero Patient was seen and the plan was discussed with Dr. Covington Orders Placed This Encounter US DOPPLER ABD PELV RETROPER COMP VITAMIN B12 ANTI-PARIETAL CELL ANTIBODY FOLATE, SERUM TISSUE TRANSGLUTAMINASE AB IGA electrolyte GUT PEG (NULYTELY, COLYTE, GAVILYTE-N) 420 gram oral solution ATTESTATION I personally interviewed and examined the patient. I performed the dempsey portions of the E/M visit, discussed case with fellow and concur with fellow documentation of history, physical exam, assessment, and treatment plan unless otherwise noted. We explained the diagnosis and management plan in detail. No barrier to education was noted. she understood me well and repeated her understanding. I answered all her questions and concerns. Staff name: Dannielle Covington MD Date: 11/11/2017 in this encounter Miscellaneous Notes * Addendum Note - Halie Sanchez RN - 11/11/2017 3:00 PM CDT Addended by: HALIE SANCHEZ on: 11/11/2017 04:50 PM Modules accepted: Orders in this encounter Plan of Treatment Date Type Specialty Care Team Description 11/18/2017 Surgery Jose Pablo, CAPSULE ENDOSCOPY MBBS regarding VICKY [address] [place] [address] 11/18/2017 Procedure Pass 11/18/2017 Hospital Dannielle Covington MD Absolute anemia Encounter [address] [place] [address] [phone] Name Priority Associated Diagnoses Order Schedule VITAMIN B12 Routine Iron deficiency anemia, Ordered: 11/11/2017 unspecified iron deficiency anemia type Nausea and vomiting, intractability of vomiting not specified, unspecified vomiting type ANTI-PARIETAL CELL ANTIBODY Routine Iron deficiency anemia, Expected: unspecified iron (Approximate), Expires: deficiency anemia type 11/11/2018 Nausea and vomiting, intractability of vomiting not specified, unspecified vomiting type FOLATE, SERUM Routine Iron deficiency anemia, Expected: 11/11/2017 unspecified iron (Approximate), Expires: deficiency anemia type 11/11/2018 Nausea and vomiting, intractability of vomiting not specified, unspecified vomiting type TISSUE TRANSGLUTAMINASE AB IGA Routine Iron deficiency anemia, Expected : 11/11/2017 unspecified iron (Approximate), Expires: deficiency anemia type 11/11/2018 Nausea and vomiting, intractability of vomiting not specified, unspecified vomiting type US DOPPLER ABD PELV RETROPER COMP Routine Iron deficiency anemia, Expected: 11/11/2017 unspecified iron (Approximate), Expires: deficiency anemia type 11/11/2018 Nausea and vomiting, intractability of vomiting not specified, unspecified vomiting type NM GI BLEED DETECTION Routine Iron deficiency anemia, Expected: 2017 unspecified iron (Approximate), Expires: deficiency anemia type 11/11/2018 as of this encounter Visit Diagnoses Diagnosis Iron deficiency anemia, unspecified iron deficiency anemia type - Primary Rectal bleeding Hemorrhage of rectum and anus Rectal pain Anal or rectal pain Nausea and vomiting, intractability of vomiting not specified, unspecified vomiting type
--- OUTSIDE RECORDS SUMMARY | 2017-11-16 09:25 | XMS REPORT | Encounter Summary ---
Author Author [facility] Organization [facility] Address Unknown Phone Unavailable Care Team Providers Care Fuse Cutter Name Role Phone Carla Wilson MD PCP Naima Field MD Unavailable Encounter Details Date Type Department Care Team Description 11/11/2017 Prep for Case [facility] Dannielle Covington MD Other iron deficiency Physicians - Internal [address] anemia (Primary Dx) Medicine [address] [place] [address] [place] [address] Social History Tobacco Use Types Packs/Day Years [...] impairment: Yes 11/11/2017 as of this encounter Plan of Treatment Date Type Specialty Care Team Description 11/18/2017 Surgery Jose Pablo, CAPSULE ENDOSCOPY MBBS regarding VICKY [address] [place] [address] [phone] 11/18/2017 Procedure Pass 11/18/2017 [facility] Dannielle Covington MD Absolute anemia Encounter [address] [facility] [address] [place] [address] [phone] as of this encounter Visit Diagnoses Diagnosis Other iron deficiency anemia - Primary
--- OUTSIDE RECORDS SUMMARY | 2017-11-16 09:25 | XMS REPORT | Encounter Summary ---
Author Author [facility] Organization [facility] Address Unknown Phone Unavailable Care Team Providers Care Groutman Name Role Phone Carla Wilson MD PCP Naima Field MD Unavailable Encounter Details Date Type Department Care Team Description 09/28/2017 [facility] Sri Okeefe MD Encounter Cancer Center - OP Lab [id number] [place] [id number] [place], [place] [id number] [place] [address] [phone] Social History Tobacco Use Types Packs/Day Years [...] as (ANTI-DIARRHEA PO) Needed. metFORMIN (GLUCOPHAGE) Take 1,000 mg by mouth 500 mg tablet twice [...] regarding VICKY [address] [place] [address] [phone] 11/18/2017 Procedure Pass 11/18/2017 [facility] Dannielle Covington MD Absolute anemia Encounter [address] [place] [address] as of this encounter Results * ERYTHROPOIETIN (09/28/2017 3:42 PM) Component Value Ref Range Erythropoietin 48.1 (H) 3.7 - 29.5 MU/ML Specimen Performing Laboratory Blood [facility] [address] [place] [address] * PERIPHERAL SMEAR (09/28/2017 3:42 PM) Component [...] report. Specimen Performing Laboratory Blood MAIN LAB [address] [place] [address] * LDH-LACTATE DEHYDROGENASE (09/28/2017 3:42 PM) Component Value Ref Range Lactate Dehydrogenase 173 100 - 210 U/L Specimen Performing Laboratory Blood [facility] [address] [place] [address] * HAPTOGLOBIN (09/28/2017 3:42 PM) Component Value Ref Range Haptoglobin 140 16 - 200 MG/DL Specimen Performing Laboratory Blood [facility] [address] [place] [address] * IRON + BINDING CAPACITY + %SAT+ FERRITIN (09/28/2017 3:42 PM) Component Value Ref Range Iron 51 50 - 160 MCG/DL Iron Binding-TIBC 422 (H) 270 - 380 MCG/DL % Saturation 12 (L) 28 - 42 % Ferritin 146 10 - 200 NG/ML Specimen Performing Laboratory Blood [facility] [address] [place] [address] * RETICULOCYTE COUNT (09/28/2017 3:42 PM) Component Value Ref Range Retic, Uncorrected 4.1 (H) 0.5 - 2.0 % Retic, Corrected 2.4 % Retic, Absolute 106.3 (H) 30 - 94 K/UL Specimen Performing Laboratory Blood [facility] [address] [place] [address] * CBC AND DIFF (09/28/2017 3:42 PM) [...] Blood [facility] [place] [address] [place] [phone] in this encounter Visit Diagnoses Diagnosis Anemia, unspecified type
--- OUTSIDE RECORDS SUMMARY | 2017-11-16 09:25 | XMS REPORT | Encounter Summary ---
Author Author [facility] Organization [facility] Address Unknown Phone Unavailable Care Team Providers Care Rib Cloth Knitter Name Role Phone Carla Wilson MD PCP Naima Field MD Unavailable Encounter Details Date Type Department Care Team Description 11/18/2017 Surgery Gastrointenstinal Jose Pablo, CAPSULE ENDOSCOPY Endoscopy MBBS regarding VICKY [address] [place] [address] [address] [place] [address] [phone] Social History Tobacco Use Types Packs/Day Years [...] regarding VICKY [address] [place] [address] [phone] 11/18/2017 Procedure Pass 11/18/2017 [facility] Dannielle Covington MD Absolute anemia Encounter [address] [place] [address] [phone] as of this encounter Visit Diagnoses Diagnosis Other iron deficiency anemia Admitting Diagnoses Diagnosis Other iron deficiency anemia - Other iron deficiency anemia [D50.8]
--- OUTSIDE RECORDS SUMMARY | 2017-11-16 09:25 | XMS REPORT | Encounter Summary ---
Author Author [facility] Organization [facility] Address Unknown Phone Unavailable Care Team Providers Care Block And Case Maker Name Role Phone PCP Unavailable Encounter Details Date Type Department Care Team Description 11/18/2017 Procedure Pass Gastrointenstinal Endoscopy [address] [place], [place] [id number] Social History Tobacco Use Types Packs/Day Years [...] regarding VICKY [address] [place], [place] [id number] 11/18/2017 Procedure Pass 11/18/2017 [facility] Dannielle Covington MD Absolute anemia Encounter [address] [place], [place] [id number] as of this encounter Visit Diagnoses Not on filein this encounter
--- OUTSIDE RECORDS SUMMARY | 2017-11-16 09:25 | XMS REPORT | Encounter Summary ---
Author Author [facility] Organization [facility] Address Unknown Phone Unavailable Care Team Providers Care Laundry Housekeeper Name Role Phone PCP Unavailable Encounter Details Date Type Department Care Team Description 11/18/2017 [facility] Gastrointenstinal Dannielle Covington MD Absolute anemia Encounter Endoscopy [address] [place] [address] [place], [place] [id number] Social History Tobacco Use Types Packs/Day Years [...] regarding VICKY [address] [place] [address] [phone] 11/18/2017 Procedure Pass 11/18/2017 Hospital Dannielle Covington MD Absolute anemia Encounter [address] [place] [address] [phone] as of this encounter Visit Diagnoses Diagnosis Absolute anemia Anemia, unspecified Admitting Diagnoses Diagnosis Other iron deficiency anemia - Other iron deficiency anemia [D50.8]
--- OUTSIDE RECORDS SUMMARY | 2017-11-16 09:25 | XMS REPORT | Encounter Summary ---
Author Author [facility] Organization [facility] Address Unknown Phone Unavailable Care Team Providers Care Jboss Developer Name Role Phone Carla Wilson MD PCP Naima Field MD Unavailable Reason for Visit * Reason Comments Results Encounter Details Date Type Department Care Team Description 10/01/2017 Telephone [facility] Sri Okeefe MD Results Cancer Center - OP Exam [address] [place] [address] [phone] [address] [phone] Social History Tobacco Use Types Packs/Day Years [...] evaluation. in this encounter Plan of Treatment Date Type Specialty Care Team Description 11/18/2017 Surgery Jose Pablo, CAPSULE ENDOSCOPY MBBS regarding VICKY [address] [place] [address] 11/18/2017 Procedure Pass 11/18/2017 [facility] Dannielle Covington MD Absolute anemia Encounter [address] [place] [address] as of this encounter Visit Diagnoses Not on filein this encounter
--- OUTSIDE RECORDS SUMMARY | 2017-11-16 09:26 | XMS REPORT | Encounter Summary ---
Author Author [facility] Organization [facility] Address Unknown Phone Unavailable Care Team Providers Care Debubblizer Name Role Phone Carla Wilson MD PCP Naima Field MD Unavailable Encounter Details Date Type Department Care Team Description 09/23/2017 Telephone [facility] Phu Erazo RN Cancer Center - Exam [address] [place] [id number] Social History Tobacco Use Types Packs/Day Years [...] 09/28/2017 2:00 PM Sri Okeefe MD [facility] Exam 09/28/2017 2:00 PM TARIK LEGGETT [facility] Exam Diagnosis & Reason for Visit: Iron Deficiency anemia, GI blood loss Physician Info: Referring Physician: Self Referral PCP: Carla Wilson MD Contact Name & Number: [phone] Medical Oncologist: Naima Grace MD History of [...] opinion. in this encounter Plan of Treatment Date Type Specialty Care Team Description 11/18/2017 Surgery Jose Pablo, CAPSULE ENDOSCOPY MBBS regarding VICKY [address] [place] [address] [phone] 11/18/2017 Procedure Pass 11/18/2017 [facility] Dannielle Covington MD Absolute anemia Encounter [address] [place] [address] [phone] as of this encounter Visit Diagnoses Not on filein this encounter
--- OUTSIDE RECORDS SUMMARY | 2017-11-16 09:27 | XMS REPORT ---
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 Active 769576480 Problem Non-intractable cyclical vomiting with nausea G43.A0 Active 78709923 Problem Reflux gastritis K29.60 Active 46653079 Problem Non-insulin treated type 2 diabetes mellitus E11.9 Active 748857267 Problem Mixed hyperlipidemia E78.2 Active 262175464 Problem 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 Active 769597175 Problem Non-insulin dependent type 2 diabetes mellitus E11.9 Active 17215490 Problem Coronary artery disease involving [place] coronary artery of [place] heart without angina pectoris I25.10 Active 9087467788448 Problem Essential hypertension I10 Active 49020806 Problem History of anemia Z86.2 Active 640468481 Problem Angina pectoris syndrome I20.9 Active 417242969 Problem Acquired hypothyroidism E03.9 Active 132099430 Problem Persistent atrial fibrillation I48.1 Active [id number] ALLERGIES No Information ENCOUNTERS Encounter Location Date Diagnosis [facility], [place] [address] [facility] [id number] [address] Nov, BMI 45.0-49.9, adult Z68.42 [facility], [place] [address] [facility] [id number], [place] [address] October, Congestive heart failure, unspecified HF chronicity, unspecified heart failure type I50.9 ; Acquired hypothyroidism E03.9 and BMI 45.0-49.9, adult Z68.42 [place] [address] [place] [id number] [place] [address] October, Shortness of breath R06.02 [place] [address] [place] [id number] [place] [address] 7[address]- 6734 October, [place] [address] [address] October, [place] [address] [address] October, Essential hypertension I10 ; Coronary artery disease involving [place] coronary artery of [place] tribe heart without angina pectoris I25.10 ; Angina pectoris syndrome I20.9 ; 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 and Persistent atrial fibrillation I48.[address] [address] Sep, Coronary artery disease involving [place] coronary artery of [place] heart without angina pectoris I25.10 [place] [address] [place] [id number] [place] [address] 82782- [address]92 Sep, [place] [address] [address]- [address] Sep, Angina pectoris syndrome I20.9 ; Paroxysmal atrial fibrillation I48.0 ; Microcytic anemia D50.9 ; 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 and 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 [place] [address] [place] [id number] [place] [address] 16278- 6967 Aug, Non-insulin dependent type 2 diabetes mellitus E11.9 ; Microcytic anemia D50.9 ; Essential hypertension I10 and Acquired hypothyroidism E03.9 [place] [address] [place] [id number] [place] [address] 59943- 0710 Jul, [place] [address] [address] Jul, [place] [address] [place] [address] Jun, [place] [address] [address]- [address] May, [place] [address] [address]- 20[address] May, History of anemia Z86.2 [place] [address] [address]- [address]80 May, [place] [address] [address]- [address] May, [place] [address] [address]- [address] May, Non-insulin treated type 2 diabetes mellitus E11.9 [place] [address] [address]- [address]69 Apr, Abdominal pain, left upper quadrant R10.12 ; Essential hypertension I10 ; Non-intractable cyclical vomiting with nausea G43.A0 ; Microcytic anemia D50.9 ; Mixed hyperlipidemia E78.2 and BMI 45.0-49.9, adult Z68.42 [place] [address] [address]- 7199 Apr, [place] [address] [address]- 7685 Apr, Non-insulin treated type 2 diabetes mellitus E11.9 ; Essential hypertension I10 and Acquired hypothyroidism E03.9 [place] [address] [place] [id number] [place] [address] 25195- 6729 Mar, Encounter for immunization Z23 [place] [address] [address]- 2423 Mar, [place] [address] [place] [id number] [place] [address] 45805- 0076 Feb, Microcytic anemia D50.9 ; Pain of left great toe M79.675 and Reflux gastritis K29.60 [place] [address] [place] [address] 28814- 0708 Feb, Coronary artery disease involving [place] tribe coronary artery of [place] tribe heart without angina pectoris I25.10 and Acquired hypothyroidism E03.9 [facility], [place] [address] [place] [id number] [place] [address] 87974- 3744 Jan, Psoriasis L40.9 ; Paroxysmal atrial fibrillation I48.0 ; Shortness of breath R06.02 and Microcytic anemia D50.9 [place] [address] [place] [id number] [place] [address] 62298- 9163 Dec, [place] [address] [place] [id number] [place] [address] 77441- 0907 Dec, [place] [address] [place] [id number] [place] [address] 86216- 3820 Dec, Coronary artery disease involving [place] tribe coronary artery of [place] tribe heart without angina pectoris I25.10 [place] [address] [place] [id number] [place] [address] 47139- 2895 Nov, Therapeutic drug monitoring Z51.81 ; Essential hypertension I10 ; Microcytic anemia D50.9 and Shortness of breath R06.02 [place] [address] [place] [id number] [place] [address] 27393- 4622 Nov, Acquired hypothyroidism E03.9 [place] [address] [place] [id number] [place] [address] 60152- 1194 October, [place] [address] [place] [id number] [place] [address] 09816- 8966 Sep, Coronary artery disease involving [place] tribe coronary artery of [place] tribe heart without angina pectoris I25.10 [place] [address] [place] [id number] [place] [address] 70318- 7084 Aug, [place] [address] [place] [id number] [place] [address] 34277- 2168 Aug, Essential hypertension I10 [place] [address] [place] [id number] [place] [address] 35994- 4[address] 20 Jul, 2016 Acquired hypothyroidism E03.9 ; Essential hypertension I10 ; Non-insulin treated type 2 diabetes mellitus E11.9 and Coronary artery disease involving [place] tribe coronary artery of [place] tribe heart without angina pectoris I25.10 [facility], [place] [address] [address] Jul, [place] [address] [place] [id number] [place] [address] 43980- 7215 Jul, Angina pectoris syndrome I20.9 and Essential hypertension I10 [place] [address] [place] [address] 31644- 4227 Jul, [place] [address] [place] [address] 83101- 7719 Jun, [facility] [address] [address] May, Abscess L02.91 [place] [address] [address] 22 Apr, 2016 Non-insulin dependent type 2 diabetes mellitus E11.9 ; Essential hypertension I10 ; Acquired hypothyroidism E03.9 ; History of anemia Z86.2 and Coronary artery disease involving [place] tribe coronary artery of [place]sem[place] ind[place] tribe heart without angina pectoris I25.10 [place] [address] [address] 14 Apr, 2016 IMMUNIZATIONS No Known Immunizations SOCIAL HISTORY Never Assessed REASON FOR VISIT VC phone call PLAN OF CARE VITAL SIGNS MEDICATIONS Unknown [...] History Atrial Fibrillation January 2017 Hospitalization History [place] 09/30 Hospitalization History [facility] for lasix and blood products 08/09/17
--- OUTSIDE RECORDS SUMMARY | 2017-11-16 09:28 | XMS REPORT ---
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 Active 070864796 Problem Non-intractable cyclical vomiting with nausea G43.A0 Active 84876706 Problem Reflux gastritis K29.60 Active 16500278 Problem Non-insulin treated type 2 diabetes mellitus E11.9 Active 198778696 Problem Mixed hyperlipidemia E78.2 Active 621027064 Problem 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 Active 094334647 Problem Non-insulin dependent type 2 diabetes mellitus E11.9 Active 43800630 Problem Coronary artery disease involving lummi coronary artery of lummi heart without angina pectoris I25.10 Active 6367037510266 Problem Essential hypertension I10 Active 15935192 Problem History of anemia Z86.2 Active 131131768 Problem Angina pectoris syndrome I20.9 Active 358787563 Problem Acquired hypothyroidism E03.9 Active 306568278 Problem Persistent atrial fibrillation I48.1 Active [id number] ALLERGIES No Information ENCOUNTERS Encounter Location Date Diagnosis [facility], [place] [address] [facility] [id number] [address] Nov, BMI 45.0-49.9, adult Z68.42 [facility], [place] [address] [facility]] [id number], [place] [address] October, Congestive heart failure, unspecified HF chronicity, unspecified heart failure type I50.9 ; Acquired hypothyroidism E03.9 and BMI 45.0-49.9, adult Z68.42 [place] [address] [place] [id number] [place] [address] 70690- 4261 October, Shortness of breath R06.02 [place] [address] [place] [id number] [place] [address] 54674- 7571 October, [place] [address] [address]- 2782 October, [place] [address] [address]- 1072 October, Essential hypertension I10 ; Coronary artery disease involving lummi coronary artery of lummi heart without angina pectoris I25.10 ; Angina pectoris syndrome I20.9 ; 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 and Persistent atrial fibrillation I48.[address] [address]- [address] Sep, Coronary artery disease involving lummi coronary artery of lummi heart without angina pectoris I25.10 [place] [address] [place] [id number] [place] [address] 28622- 3378 Sep, [place] [address] [address]- 8958 Sep, Angina pectoris syndrome I20.9 ; Paroxysmal atrial fibrillation I48.0 ; Microcytic anemia D50.9 ; 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 and 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 [place] [address] [place] [id number] [place] [address] 57838- 2812 Aug, Non-insulin dependent type 2 diabetes mellitus E11.9 ; Microcytic anemia D50.9 ; Essential hypertension I10 and Acquired hypothyroidism E03.9 [place] [address] [place] [id number] [place] [address] 53387- 7622 Jul, [place] [address] 6[address]- 9746 Jul, [place] [address] [place] [address]- [address]82 Jun, [place] [address] 42980- 2332 May, [place] [address] [address]111- 5100 May, History of anemia Z86.2 [place] [address] 8[address]12- 6502 May, [place] [address] 25350- 9684 May, [place] [address] 92168- 9298 May, Non-insulin treated type 2 diabetes mellitus E11.9 [place] [address] 01386- 0853 Apr, Abdominal pain, left upper quadrant R10.12 ; Essential hypertension I10 ; Non-intractable cyclical vomiting with nausea G43.A0 ; Microcytic anemia D50.9 ; Mixed hyperlipidemia E78.2 and BMI 45.0-49.9, adult Z68.42 [place] [address] 15182- 6116 Apr, [place] [address] 53729- 2876 Apr, Non-insulin treated type 2 diabetes mellitus E11.9 ; Essential hypertension I10 and Acquired hypothyroidism E03.9 [place] [address] [place] [id number] [place] [address] 23243- 2587 Mar, Encounter for immunization Z23 [place] [address] 48898- 2572 Mar, [place] [address] [place] [id number] [place] [address] 53624- 3239 Feb, Microcytic anemia D50.9 ; Pain of left great toe M79.675 and Reflux gastritis K29.60 [place] [address] [place] [address] 78378- 4485 Feb, Coronary artery disease involving lummi coronary artery of lummi heart without angina pectoris I25.10 and Acquired hypothyroidism E03.9 [facility], [place] [address] [place] [id number] [place] [address] 76025- 4775 Jan, Psoriasis L40.9 ; Paroxysmal atrial fibrillation I48.0 ; Shortness of breath R06.02 and Microcytic anemia D50.9 [place] [address] [place] [id number] [place] [address] 49294- 9699 Dec, [place] [address] [place] [id number] [place] [address] 78615- 5638 Dec, [place] [address] [place] [id number] [place] [address] 62770- 4244 Dec, Coronary artery disease involving lummi coronary artery of lummi heart without angina pectoris I25.10 [place] [address] [place] [id number] [place] [address] 52779- 6964 Nov, Therapeutic drug monitoring Z51.81 ; Essential hypertension I10 ; Microcytic anemia D50.9 and Shortness of breath R06.02 [place] [address] [place] [id number] [place] [address] 02239- 8425 Nov, Acquired hypothyroidism E03.9 [place] [address] [place] [id number] [place] [address] 38713- 2573 October, [place] [address] [place] [id number] [place] [address] 08546- 4269 Sep, Coronary artery disease involving lummi coronary artery of lummi heart without angina pectoris I25.10 [place] [address] [place] [id number] [place] [address] 25621- 4184 Aug, [place] [address] [place] [id number] [place] [address] 56257- 2787 Aug, Essential hypertension I10 [place] [address] [place] [id number] [place] [address] 74594- 5365 Jul, Acquired hypothyroidism E03.9 ; Essential hypertension I10 ; Non-insulin treated type 2 diabetes mellitus E11.9 and Coronary artery disease involving lummi coronary artery of lummi heart without angina pectoris I25.10 [facility], [place] [address], [place] [address]- [address] Jul, [place] [address] [place] [id number] [place] [address] 25121- 4622 Jul, Angina pectoris syndrome I20.9 and Essential hypertension I10 [place] [address] [place] [id number] [place] [address] 42770- 2687 Jul, [place] [address] [place] [id number] [place] [address] 91836- 6640 Jun, [facility] [address] [place] [address] 65093 -5545 May, Abscess L02.91 [facility] [place] [address] [place] [id number] [place] [address] 58041- 2200 22 Apr, 2016 Non-insulin dependent type 2 diabetes mellitus E11.9 ; Essential hypertension I10 ; Acquired hypothyroidism E03.9 ; History of anemia Z86.2 and Coronary artery disease involving lummi coronary artery of lummi heart without angina pectoris I25.10 [place] [address], [place] [address]- 0[address] 14 Apr, 2016 IMMUNIZATIONS No Known Immunizations SOCIAL HISTORY Never Assessed REASON FOR VISIT Lab (walk-in) PLAN OF CARE VITAL SIGNS MEDICATIONS Unknown Medications RESULTS Name Result Date Reference Range URINE PROTEIN TO CREATININE RATIO 2017-05-18 CREATININE, RANDOM URINE 116 20-320 PROTEIN/CREATININE RATIO 181 21-161 PROTEIN, TOTAL, RANDOM UR 21 5-24 PROCEDURES Procedure Date Ordered Result Body Site ASSAY OF PROTEIN, URINE May 18, 2017 ASSAY OF URINE CREATININE May 18, 2017 INSTRUCTIONS MEDICATIONS ADMINISTERED No Known Medications MEDICAL [...] History Atrial Fibrillation January 2017 Hospitalization History [place] 09/30 Hospitalization History [facility] for lasix and blood products 08/09/17
--- OUTSIDE RECORDS SUMMARY | 2017-11-16 09:28 | XMS REPORT ---
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 Active 001724931 Problem Non-intractable cyclical vomiting with nausea G43.A0 Active 56179383 Problem Reflux gastritis K29.60 Active 89356948 Problem Non-insulin treated type 2 diabetes mellitus E11.9 Active 044680437 Problem Mixed hyperlipidemia E78.2 Active 815547675 Problem 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 Active 096589814 Problem Non-insulin dependent type 2 diabetes mellitus E11.9 Active 58369844 Problem Coronary artery disease involving [place] coronary artery of tu[place] heart without angina pectoris I25.10 Active 2152241633165 Problem Essential hypertension I10 Active 08445559 Problem History of anemia Z86.2 Active 067699512 Problem Angina pectoris syndrome I20.9 Active 464499216 Problem Acquired hypothyroidism E03.9 Active 273279987 Problem Persistent atrial fibrillation I48.1 Active 459461022 ALLERGIES No Information ENCOUNTERS Encounter Location Date Diagnosis [facility] [address] [facility] [id number] [address] Nov, BMI 45.0-49.9, adult Z68.42 [facility] [address] [facility] [id number], [place] [address] October, Congestive heart failure, unspecified HF chronicity, unspecified heart failure type I50.9 ; Acquired hypothyroidism E03.9 and BMI 45.0-49.9, adult Z68.42 [place] [address] [place] [id number] [place] [address] October, Shortness of breath R06.02 [place] [address] [place] [address] [id number] [place] [address]74- 0909 October, [place] [address] [address] October, [place] [address] [address] October, Essential hypertension I10 ; Coronary artery disease involving [place] coronary artery of [place] heart without angina pectoris I25.10 ; Angina pectoris syndrome I20.9 ; 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 and Persistent atrial fibrillation I48.[address] [address] Sep, Coronary artery disease involving [place] coronary artery of tu[place] heart without angina pectoris I25.10 [place] [address] [place] [address] [id number] [place] [address]- [address] Sep, [place] [address] [address] Sep, Angina pectoris syndrome I20.9 ; Paroxysmal atrial fibrillation I48.0 ; Microcytic anemia D50.9 ; 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 and 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 [place] [address] [id number] [place] [address] 94[address]- 9343 Aug, Non-insulin dependent type 2 diabetes mellitus E11.9 ; Microcytic anemia D50.9 ; Essential hypertension I10 and Acquired hypothyroidism E03.9 [place] [address] [id number] [place] [address] 55131[address] 7240 Jul, [place] [address] [address] Jul, [place] [address] [place] [address] Jun, [place] [address] [address] 99[address] May, [place] [address] [address] May, History of anemia Z86.2 [place] [address] [address]- 6553 May, [place] [address] [address] 8[address] May, [place] [address] [address] May, Non-insulin treated type 2 diabetes mellitus E11.9 [place] [address] [address] 32[address] Apr, Abdominal pain, left upper quadrant R10.12 ; Essential hypertension I10 ; Non-intractable cyclical vomiting with nausea G43.A0 ; Microcytic anemia D50.9 ; Mixed hyperlipidemia E78.2 and BMI 45.0-49.9, adult Z68.42 [place] [address] [address]- 4247 Apr, [place] [address] [address] 8[address] Apr, Acquired hypothyroidism E03.9 ; Essential hypertension I10 and Non-insulin treated type 2 diabetes mellitus E11.9 [place] [address] [place] [address] [id number] [place] [address] 12225- 8132 Mar, Encounter for immunization Z23 [place] [address] 0[address]- 6[address] Mar, [place] [address] [place] [address] [id number] [place] [address] 72087- 3674 Feb, Microcytic anemia D50.9 ; Pain of left great toe M79.675 and Reflux gastritis K29.60 [place] [address] [place] [address] 95849- 4124 Feb, Coronary artery disease involving [place] coronary artery of tu[place]umne heart without angina pectoris I25.10 and Acquired hypothyroidism E03.9 [facility] [id number] [place] [address] 01195- 1749 Jan, Psoriasis L40.9 ; Paroxysmal atrial fibrillation I48.0 ; Shortness of breath R06.02 and Microcytic anemia D50.9 [place] [address] [place] [address] [id number] [place] [address] 99117- 9921 Dec, [place] [address] [place] [address] [id number] [place] [address] 73107- 4067 Dec, [place] [address] [place] [id number] [place] [address] 76816- 0327 Dec, Coronary artery disease involving [place] coronary artery of tu[place]ne heart without angina pectoris I25.10 [place] [address] [place] [address] [id number] [place] [address] 24492- 5805 Nov, Therapeutic drug monitoring Z51.81 ; Essential hypertension I10 ; Microcytic anemia D50.9 and Shortness of breath R06.02 [place] [address] [place] [address] [id number] [place] [address] 12134- 5904 Nov, Acquired hypothyroidism E03.9 [place] [address] [place] [id number] [place] [address] 83330- 0776 October, [place] [address] [place] [address] [id number] [place] [address] 82730- 9840 Sep, Coronary artery disease involving [place] coronary artery of tu[place]umne heart without angina pectoris I25.10 [place] [address] [place] [id number] [place] [address] 96285- 6620 Aug, [place] [address] [place] [address] [id number] [place] [address] 04109- 7154 Aug, Essential hypertension I10 [place] [address] [place] [address] [id number] [place] [address] 36167- 3240 20 Jul, 2016 Acquired hypothyroidism E03.9 ; Essential hypertension I10 ; Non-insulin treated type 2 diabetes mellitus E11.9 and Coronary artery disease involving tu[place] coronary artery of tuolumne heart without angina pectoris I25.10 [facility] [address] [address] Jul, [place] [address] [place] [id number] [place] [address] 22243- 7542 Jul, Angina pectoris syndrome I20.9 and Essential hypertension I10 [place] [address] [place] [address] 20769- 4780 Jul, [place] [address] [place] [address] 43108- 3197 Jun, [facility] [address] [address] May, Abscess L02.91 [place] [address] [address] 22 Apr, 2016 Non-insulin dependent type 2 diabetes mellitus E11.9 ; Essential hypertension I10 ; Acquired hypothyroidism E03.9 ; History of anemia Z86.2 and Coronary artery disease involving [place] coronary artery of tu[place] heart without angina pectoris I25.10 [place] [address], [place] [address] 14 Apr, 2016 IMMUNIZATIONS No Known Immunizations SOCIAL HISTORY Never Assessed REASON FOR VISIT refills PLAN OF CARE VITAL SIGNS MEDICATIONS Medication Instructions Dosage Frequency Start Date End Date Duration Status Metoprolol Succinate ER 100 mg Orally Once a day 1 tablet at bedtime 24h Feb, 90 days Active Glimepiride 2 MG Orally 2 times a day 1 12h Active RESULTS No Results PROCEDURES No Known [...] Fibrillation January 2017 Hospitalization History [place] 09/30 Hospitalization History [facility] for lasix and blood products 08/09/17
--- OUTSIDE RECORDS SUMMARY | 2017-11-16 09:28 | XMS REPORT ---
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 785707251 Problem Non-intractable cyclical vomiting with nausea G43.A0 Active 31682315 Problem Reflux gastritis 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.60 Active 79425222 Problem Non-insulin treated type 2 diabetes mellitus E11.9 Active 521545241 Problem Mixed hyperlipidemia E78.2 Active 369633723 Problem 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 Active 312673337 Problem Non-insulin dependent type 2 diabetes mellitus E11.9 Active 94621577 Problem Coronary artery disease involving [place] coronary artery of [place] heart without angina pectoris I25.10 Active 0774254806315 Problem Essential hypertension I10 Active 11220386 Problem History of anemia Z86.2 Active 465895910 Problem Angina pectoris syndrome I20.9 Active 446443009 Problem Acquired hypothyroidism E03.9 Active 728977703 Problem Persistent atrial fibrillation I48.1 Active 917636199 ALLERGIES No Information ENCOUNTERS Encounter Location Date Diagnosis [facility] [address] [facility] [id number] [address] October, Congestive heart failure, unspecified HF chronicity, unspecified heart failure type I50.9 ; Acquired hypothyroidism E03.9 and BMI 45.0-49.9, adult Z68.42 [facility] [address] [facility] [id number] [address] October, Shortness of breath R06.02 [facility] [address] [place] [address] 87837- 4664 October, [facility] [address] [place] [id number] [place] [address] 58762- 6788 October, [facility] [address] [place] [id number] [place] [address] 26830- 2941 October, Essential hypertension I10 ; Coronary artery disease involving [place] coronary artery of [place] heart without angina pectoris I25.10 ; Angina pectoris syndrome I20.9 ; 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 and Persistent atrial fibrillation I48.1 [place] [id number] [place] [address] 84718- 3686 Sep, Coronary artery disease involving [place] coronary artery of [place] heart without angina pectoris I25.10 [place] [address] [place] [address] [id number] [place] [address] 81903- 9965 Sep, [facility] [address] [place] [address] [id number] [place] [address] 56356- 4365 Sep, Angina pectoris syndrome I20.9 ; Paroxysmal atrial fibrillation I48.0 ; Microcytic anemia D50.9 ; 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 and 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 [place] [id number] [place] [address] 47085- 4805 Aug, Non-insulin dependent type 2 diabetes mellitus E11.9 ; Microcytic anemia D50.9 ; Essential hypertension I10 and Acquired hypothyroidism E03.9 [place] [address] [place] [address] 55510- 6711 Jul, [place] [address] [place] [id number] [place] [address] 33578- 0800 Jul, [facility] [address] [place] [address] [id number] [place] [address] 42221- 3597 Jun, [place] [address] [place] [id number] [place] [address] 10832- 9674 May, [place] [address] [place] [id number] [place] [address] 67488- 1773 May, History of anemia Z86.2 [place] [address] [address]- 5533 May, [place] [address] 9[address]23- 1286 May, [address] [address]- [address] May, Non-insulin treated type 2 diabetes mellitus E11.[address] 19[address]- [address]8 Apr, Abdominal pain, left upper quadrant R10.12 ; Essential hypertension I10 ; Non-intractable cyclical vomiting with nausea G43.A0 ; Microcytic anemia D50.9 ; Mixed hyperlipidemia E78.2 and BMI 45.0-49.9, adult Z68.[address] [address]- 3991 Apr, [address] [address]24- 3142 Apr, Non-insulin treated type 2 diabetes mellitus E11.9 ; Essential hypertension I10 and Acquired hypothyroidism E03.[address] [address]26- 3589 Mar, Encounter for immunization Z23 [address] 0[address]84- 4919 Mar, [address] 95842- 6347 Feb, Microcytic anemia D50.9 ; Pain of left great toe M79.675 and Reflux gastritis K29.[address] [address]- 1248 05 Feb, 2017 Coronary artery disease involving [place] coronary artery of [place] heart without angina pectoris I25.10 and Acquired hypothyroidism E03.9 [facility] [address] [address] Jan, Psoriasis L40.9 ; Paroxysmal atrial fibrillation I48.0 ; Shortness of breath R06.02 and Microcytic anemia D50.9 [facility] [address] [address] Dec, [facility] [address] [place] [id number] [place] [address] 11922- 4555 Dec, [facility] [address] [place] [id number] [place] [address] 81862- 3932 Dec, Coronary artery disease involving [place] coronary artery of [place] heart without angina pectoris I25.10 [place] [address] [place] [address] 97266- 2372 Nov, Therapeutic drug monitoring Z51.81 ; Essential hypertension I10 ; Microcytic anemia D50.9 and Shortness of breath R06.02 [facility] [address] [address]- 9673 Nov, Acquired hypothyroidism E03.9 [facility] [address] [place] [address] 51083- 9900 October, [facility] [address] [address]- 5800 Sep, Coronary artery disease involving [place] coronary artery of [place] heart without angina pectoris I25.10 [facility] [address] [address]- 6[address] Aug, [facility] [address] [place] [id number] [place] [address] 08175- 2428 Aug, Essential hypertension I10 [facility] [address] [address]- 5[address] Jul, Acquired hypothyroidism E03.9 ; Essential hypertension I10 ; Non-insulin treated type 2 diabetes mellitus E11.9 and Coronary artery disease involving [place] coronary artery of [place] heart without angina pectoris I25.10 [facility] [address] [facility] [id number] [address] 15 Jul, 2016 [facility] [address] [id number] [address]- 4[address] 15 Jul, 2016 Angina pectoris syndrome I20.9 and Essential hypertension I10 [facility] [address] [place] [id number] [address]- [address] 03 Jul, 2016 [facility] [address] [address]- [address] Jun, [facility] [address] [address] May, Abscess L02.91 [facility] [address] [address]- 0849 Apr, Non-insulin dependent type 2 diabetes mellitus E11.9 ; Essential hypertension I10 ; Acquired hypothyroidism E03.9 ; History of anemia Z86.2 and Coronary artery disease involving [place] coronary artery of [place] heart without angina pectoris I25.10 [facility] [address] [place] [id number] [address]- 67[address] 14 Apr, 2016 IMMUNIZATIONS No Known Immunizations SOCIAL HISTORY Never Assessed REASON FOR VISIT Fax Labs PLAN OF CARE Activity Details Pending Test MICROALBUMIN/CREATININE RATIO, URINE VITAL SIGNS MEDICATIONS No Known Medications RESULTS Name Result Date Reference Range LIPID PANEL 2017-05-12 Elda Luna CMP14 Default TRIGLYCERIDES CHOLESTEROL, TOTAL Comment HDL CHOLESTEROL Please note LDL-CHOLESTEROL Request Problem CHOL/HDLC RATIO Request Problem NON HDL CHOLESTEROL Specimen Identification Status LDL Cholesterol Calc X Comment: VLDL Cholesterol Brian HDL Cholesterol Triglycerides Cholesterol, Total Comment: THYROID ANALYZER 2017-05-12 Elda Richv CMP14 Default INTERPRETATION Interpretive Comment Interpretive Comment Please note Request Problem Request Problem T4, FREE T4,Free (Direct) T4,Free (Direct) Thyroid Peroxidase (TPO) Ab THYROID PEROXIDASE ANTIBODIES Triiodothyronine, Free, Serum TSH TSH A1C 2017-05-12 HEMOGLOBIN A1c Hemoglobin A1c Hemoglobin A1c NTI Miscellaneous NTI Serum Gel Tube Please note Please Note: Request Problem THYME ([id number]) IGE CLASS PROCEDURES Procedure Date Ordered Result Body Site LIPID PANEL May 12, 2017 ASSAY OF URINE CREATININE May 12, 2017 Hemoglobin Test Send Out 0 dollar May 12, 2017 COMPREHEN METABOLIC PANEL May 12, 2017 MICROALBUMIN, QUANTITATIVE May 12, 2017 ASSAY THYROID STIM HORMONE May 12, 2017 COMPLETE CBC W/AUTO DIFF WBC May 12, 2017 INSTRUCTIONS MEDICATIONS ADMINISTERED No Known Medications [...] History Atrial Fibrillation January 2017 Hospitalization History [place] 09/30 Hospitalization History [facility] for lasix and blood products 08/09/17
== END 2017-11-07 03:52 | disposition home or self-care (01) ==
LOC: EDUNIT# 12:08 → ER 12:10 → SDC 15:06 → 4TH 15:30 → SDC 15:35 → 4TH 15:35 → SDC 23:45 → 4TH 23:45
PROVIDERS: ADMIT Family Medicine; ATTEND Family Medicine
DX: D50.9 Iron deficiency anemia, unspecified (principal); I11.0 Hypertensive heart disease with heart failure; I50.9 Heart failure, unspecified; I25.10 Atherosclerotic heart disease of native coronary artery without angina pectoris; I48.91 Unspecified atrial fibrillation; E11.9 Type 2 diabetes mellitus without complications; K21.9 Gastro-esophageal reflux disease without esophagitis; N19 Unspecified kidney failure; I25.2 Old myocardial infarction; Z79.84 Long term (current) use of oral hypoglycemic drugs; Z79.899 Other long term (current) drug therapy; Z87.891 Personal history of nicotine dependence
CPT/HCPCS: 36415; 36430; 71045; 80053; 86850; 86900; 86901; 86922; 99284; G0378

== ENCOUNTER → 2017-11-06 | Outpatient (CLI) | payer OTHER ==
[~2017-11-06] MED LIST changes: -CYANOCOBALAMIN INJ 1000 MCG/ML (CANCER CENTER) ONE; -FERRIC CARBOXYMALTOSE (CANCER) 750 MG in NS (IVPB) CANCER CENTER 250 ML IV SCH; -NS (IVPB) CANCER CENTER 250 ML ONE; -NS IV 500 ML (CANCER CENTER) 500 ML ONE
[2017-11-06 12:21] LABS: CHOLESTEROL 165 MG/DL (< 200); HDL CHOLESTEROL 45 MG/DL (40-60); TRIGLYCERIDES 126 MG/DL (<150); VLDL CHOLESTEROL 25 MG/DL (5-40)
== END ==
LOC: LAB 12:00
PROVIDERS: ATTEND Internal Medicine Interventional Cardiology
DX: R06.02 Shortness of breath (principal)
CPT/HCPCS: 36415; 80061

== ENCOUNTER → 2017-11-17 | Outpatient (CLI) | payer OTHER | LOC: LAB 14:55 | PROVIDERS: ATTEND Internal Medicine Gastroenterology | DX: D50.9 Iron deficiency anemia, unspecified (principal); R11.2 Nausea with vomiting, unspecified | CPT/HCPCS: 36415; 82607; 82746; 83520; 86255 ==

== ENCOUNTER 2018-01-19 11:36 | Outpatient (RCR) | payer OTHER ==
[2017-10-27 11:47] LABS: BASOPHILS % (AUTO) 1 % (0-10); EOSINOPHILS # (AUTO) 0.3 10^3/uL (0.0-0.3); EOSINOPHILS % (AUTO) 7 % (0-10); HEMATOCRIT 27 % (35-52); HEMOGLOBIN 8.3 G/DL (11.5-16.0); LYMPHOCYTES % (AUTO) 23 % (12-44); MEAN CORPUSCULAR HEMOGLOBIN 31 PG (25-34); MEAN CORPUSCULAR HGB CONC 31 G/DL (32-36); MEAN CORPUSCULAR VOLUME 102 FL (80-99); MEAN PLATELET VOLUME 9.5 FL (7.4-10.4); MONOCYTES # (AUTO) 0.4 X 10^3 (0.0-1.0); MONOCYTES % (AUTO) 9 % (0-12); NEUTROPHILS # (AUTO) 2.5 X 10^3 (1.8-7.8); NEUTROPHILS % (AUTO) 61 % (42-75); PLATELET COUNT 138 10^3/uL (130-400); RED BLOOD COUNT 2.66 10^6/uL (4.35-5.85); RED CELL DISTRIBUTION WIDTH 15.7 % (10.0-14.5); WHITE BLOOD COUNT 4.1 10^3/uL (4.3-11.0)
[2017-11-03 13:25] LABS: BASOPHILS % (AUTO) 1 % (0-10); EOSINOPHILS # (AUTO) 0.5 10^3/uL (0.0-0.3); EOSINOPHILS % (AUTO) 9 % (0-10); HEMATOCRIT 27 % (35-52); LYMPHOCYTES # (AUTO) 1.1 X 10^3 (1.0-4.0); LYMPHOCYTES % (AUTO) 22 % (12-44); MEAN CORPUSCULAR HEMOGLOBIN 31 PG (25-34); MEAN CORPUSCULAR HGB CONC 30 G/DL (32-36); MEAN CORPUSCULAR VOLUME 104 FL (80-99); MEAN PLATELET VOLUME 9.4 FL (7.4-10.4); MONOCYTES # (AUTO) 0.5 X 10^3 (0.0-1.0); MONOCYTES % (AUTO) 11 % (0-12); NEUTROPHILS # (AUTO) 2.9 X 10^3 (1.8-7.8); NEUTROPHILS % (AUTO) 58 % (42-75); PLATELET COUNT 165 10^3/uL (130-400); RED BLOOD COUNT 2.56 10^6/uL (4.35-5.85); RED CELL DISTRIBUTION WIDTH 15.8 % (10.0-14.5)
[2017-11-06 11:49] LABS: BASOPHILS % (AUTO) 0 % (0-10); EOSINOPHILS # (AUTO) 0.3 10^3/uL (0.0-0.3); EOSINOPHILS % (AUTO) 8 % (0-10); HEMATOCRIT 24 % (35-52); HEMOGLOBIN 7.1 G/DL (11.5-16.0); LYMPHOCYTES # (AUTO) 0.7 X 10^3 (1.0-4.0); LYMPHOCYTES % (AUTO) 21 % (12-44); MEAN CORPUSCULAR HEMOGLOBIN 31 PG (25-34); MEAN CORPUSCULAR HGB CONC 30 G/DL (32-36); MEAN CORPUSCULAR VOLUME 103 FL (80-99); MEAN PLATELET VOLUME 9.2 FL (7.4-10.4); MONOCYTES # (AUTO) 0.4 X 10^3 (0.0-1.0); MONOCYTES % (AUTO) 11 % (0-12); NEUTROPHILS # (AUTO) 2.1 X 10^3 (1.8-7.8); NEUTROPHILS % (AUTO) 61 % (42-75); PLATELET COUNT 133 10^3/uL (130-400); RED BLOOD COUNT 2.31 10^6/uL (4.35-5.85); RED CELL DISTRIBUTION WIDTH 15.3 % (10.0-14.5); WHITE BLOOD COUNT 3.5 10^3/uL (4.3-11.0)
[2017-11-10 12:25] LABS: BASOPHILS % (AUTO) 1 % (0-10); EOSINOPHILS # (AUTO) 0.3 10^3/uL (0.0-0.3); EOSINOPHILS % (AUTO) 6 % (0-10); HEMATOCRIT 27 % (35-52); HEMOGLOBIN 8.5 G/DL (11.5-16.0); LYMPHOCYTES # (AUTO) 0.8 X 10^3 (1.0-4.0); LYMPHOCYTES % (AUTO) 19 % (12-44); MEAN CORPUSCULAR HEMOGLOBIN 31 PG (25-34); MEAN CORPUSCULAR HGB CONC 31 G/DL (32-36); MEAN CORPUSCULAR VOLUME 100 FL (80-99); MEAN PLATELET VOLUME 9.6 FL (7.4-10.4); MONOCYTES # (AUTO) 0.4 X 10^3 (0.0-1.0); MONOCYTES % (AUTO) 10 % (0-12); NEUTROPHILS # (AUTO) 2.6 X 10^3 (1.8-7.8); NEUTROPHILS % (AUTO) 65 % (42-75); PLATELET COUNT 139 10^3/uL (130-400); RED BLOOD COUNT 2.72 10^6/uL (4.35-5.85); RED CELL DISTRIBUTION WIDTH 14.9 % (10.0-14.5); WHITE BLOOD COUNT 4.1 10^3/uL (4.3-11.0)
[2017-11-17 15:12] LABS: BASOPHILS % (AUTO) 0 % (0-10); EOSINOPHILS # (AUTO) 0.4 10^3/uL (0.0-0.3); EOSINOPHILS % (AUTO) 9 % (0-10); HEMATOCRIT 26 % (35-52); LYMPHOCYTES # (AUTO) 0.9 X 10^3 (1.0-4.0); LYMPHOCYTES % (AUTO) 18 % (12-44); MEAN CORPUSCULAR HEMOGLOBIN 31 PG (25-34); MEAN CORPUSCULAR HGB CONC 31 G/DL (32-36); MEAN CORPUSCULAR VOLUME 100 FL (80-99); MEAN PLATELET VOLUME 9.4 FL (7.4-10.4); MONOCYTES # (AUTO) 0.4 X 10^3 (0.0-1.0); MONOCYTES % (AUTO) 8 % (0-12); NEUTROPHILS % (AUTO) 64 % (42-75); PLATELET COUNT 176 10^3/uL (130-400); RED BLOOD COUNT 2.62 10^6/uL (4.35-5.85); RED CELL DISTRIBUTION WIDTH 14.5 % (10.0-14.5); WHITE BLOOD COUNT 4.7 10^3/uL (4.3-11.0)
[2017-11-23 11:47] LABS: BASOPHILS % (AUTO) 1 % (0-10); EOSINOPHILS # (AUTO) 0.3 10^3/uL (0.0-0.3); EOSINOPHILS % (AUTO) 6 % (0-10); HEMATOCRIT 23 % (35-52); HEMOGLOBIN 7.1 G/DL (11.5-16.0); LYMPHOCYTES # (AUTO) 0.9 X 10^3 (1.0-4.0); LYMPHOCYTES % (AUTO) 21 % (12-44); MEAN CORPUSCULAR HEMOGLOBIN 31 PG (25-34); MEAN CORPUSCULAR HGB CONC 31 G/DL (32-36); MEAN CORPUSCULAR VOLUME 100 FL (80-99); MEAN PLATELET VOLUME 9.7 FL (7.4-10.4); MONOCYTES # (AUTO) 0.4 X 10^3 (0.0-1.0); MONOCYTES % (AUTO) 9 % (0-12); NEUTROPHILS # (AUTO) 2.6 X 10^3 (1.8-7.8); NEUTROPHILS % (AUTO) 64 % (42-75); PLATELET COUNT 143 10^3/uL (130-400); RED BLOOD COUNT 2.29 10^6/uL (4.35-5.85); RED CELL DISTRIBUTION WIDTH 14.5 % (10.0-14.5); WHITE BLOOD COUNT 4.1 10^3/uL (4.3-11.0)
[2017-11-30 14:02] LABS: ABSOLUTE RETIC # 82 10e9/L (24-90); BASOPHILS % (AUTO) 1 % (0-10); EOSINOPHILS # (AUTO) 0.3 10^3/uL (0.0-0.3); EOSINOPHILS % (AUTO) 8 % (0-10); HEMATOCRIT 25 % (35-52); LYMPHOCYTES # (AUTO) 1.1 X 10^3 (1.0-4.0); LYMPHOCYTES % (AUTO) 25 % (12-44); MEAN CORPUSCULAR HEMOGLOBIN 31 PG (25-34); MEAN CORPUSCULAR HGB CONC 32 G/DL (32-36); MEAN CORPUSCULAR VOLUME 98 FL (80-99); MEAN PLATELET VOLUME 9.7 FL (7.4-10.4); MONOCYTES # (AUTO) 0.4 X 10^3 (0.0-1.0); MONOCYTES % (AUTO) 9 % (0-12); NEUTROPHILS # (AUTO) 2.5 X 10^3 (1.8-7.8); NEUTROPHILS % (AUTO) 58 % (42-75); PLATELET COUNT 147 10^3/uL (130-400); RED BLOOD COUNT 2.56 10^6/uL (4.35-5.85); RED CELL DISTRIBUTION WIDTH 14.3 % (10.0-14.5); RETICULOCYTE % 3.19 % (0.50-2.40); WHITE BLOOD COUNT 4.2 10^3/uL (4.3-11.0)
[2017-11-30 14:20] LABS: ALBUMIN 3.8 GM/DL (3.2-4.5); BILIRUBIN,TOTAL 0.6 MG/DL (0.1-1.0); CALCIUM 9.7 MG/DL (8.5-10.1); CREATININE SERUM 1.33 MG/DL (0.60-1.30); POTASSIUM 4.3 MMOL/L (3.6-5.0); TOTAL PROTEIN 7.2 GM/DL (6.4-8.2)
[2017-12-08 13:37] LABS: BASOPHILS % (AUTO) 0 % (0-10); EOSINOPHILS # (AUTO) 0.4 10^3/uL (0.0-0.3); EOSINOPHILS % (AUTO) 7 % (0-10); HEMATOCRIT 24 % (35-52); HEMOGLOBIN 7.5 G/DL (11.5-16.0); LYMPHOCYTES # (AUTO) 1.1 X 10^3 (1.0-4.0); LYMPHOCYTES % (AUTO) 20 % (12-44); MEAN CORPUSCULAR HEMOGLOBIN 31 PG (25-34); MEAN CORPUSCULAR HGB CONC 31 G/DL (32-36); MEAN CORPUSCULAR VOLUME 100 FL (80-99); MONOCYTES # (AUTO) 0.5 X 10^3 (0.0-1.0); MONOCYTES % (AUTO) 11 % (0-12); NEUTROPHILS # (AUTO) 3.2 X 10^3 (1.8-7.8); NEUTROPHILS % (AUTO) 61 % (42-75); PLATELET COUNT 164 10^3/uL (130-400); RED CELL DISTRIBUTION WIDTH 14.9 % (10.0-14.5); WHITE BLOOD COUNT 5.1 10^3/uL (4.3-11.0)
[2017-12-15 12:00] LABS: BASOPHILS % (AUTO) 1 % (0-10); EOSINOPHILS # (AUTO) 0.6 10^3/uL (0.0-0.3); EOSINOPHILS % (AUTO) 10 % (0-10); HEMATOCRIT 28 % (35-52); HEMOGLOBIN 8.9 G/DL (11.5-16.0); LYMPHOCYTES % (AUTO) 17 % (12-44); MEAN CORPUSCULAR HEMOGLOBIN 31 PG (25-34); MEAN CORPUSCULAR HGB CONC 32 G/DL (32-36); MEAN CORPUSCULAR VOLUME 98 FL (80-99); MEAN PLATELET VOLUME 9.5 FL (7.4-10.4); MONOCYTES # (AUTO) 0.5 X 10^3 (0.0-1.0); MONOCYTES % (AUTO) 9 % (0-12); NEUTROPHILS # (AUTO) 3.7 X 10^3 (1.8-7.8); NEUTROPHILS % (AUTO) 63 % (42-75); PLATELET COUNT 170 10^3/uL (130-400); RED BLOOD COUNT 2.84 10^6/uL (4.35-5.85); RED CELL DISTRIBUTION WIDTH 15.5 % (10.0-14.5); WHITE BLOOD COUNT 5.9 10^3/uL (4.3-11.0)
[2017-12-22 12:20] LABS: BASOPHILS % (AUTO) 1 % (0-10); EOSINOPHILS # (AUTO) 0.5 10^3/uL (0.0-0.3); EOSINOPHILS % (AUTO) 11 % (0-10); HEMATOCRIT 24 % (35-52); HEMOGLOBIN 7.8 G/DL (11.5-16.0); LYMPHOCYTES % (AUTO) 22 % (12-44); MEAN CORPUSCULAR HEMOGLOBIN 33 PG (25-34); MEAN CORPUSCULAR HGB CONC 33 G/DL (32-36); MEAN CORPUSCULAR VOLUME 100 FL (80-99); MEAN PLATELET VOLUME 9.5 FL (7.4-10.4); MONOCYTES # (AUTO) 0.4 X 10^3 (0.0-1.0); MONOCYTES % (AUTO) 10 % (0-12); NEUTROPHILS # (AUTO) 2.5 X 10^3 (1.8-7.8); NEUTROPHILS % (AUTO) 56 % (42-75); PLATELET COUNT 157 10^3/uL (130-400); RED BLOOD COUNT 2.39 10^6/uL (4.35-5.85); RED CELL DISTRIBUTION WIDTH 14.9 % (10.0-14.5); WHITE BLOOD COUNT 4.4 10^3/uL (4.3-11.0)
[2017-12-22 12:48] LABS: RED BLOOD COUNT 2.4 10^6/uL (4.35-5.85); RETICULOCYTE % 3.31 % (0.50-2.40)
[2017-12-29 11:32] LABS: BASOPHILS % (AUTO) 1 % (0-10); EOSINOPHILS # (AUTO) 0.5 10^3/uL (0.0-0.3); EOSINOPHILS % (AUTO) 12 % (0-10); HEMATOCRIT 26 % (35-52); HEMOGLOBIN 8.6 G/DL (11.5-16.0); LYMPHOCYTES # (AUTO) 1.1 X 10^3 (1.0-4.0); LYMPHOCYTES % (AUTO) 27 % (12-44); MEAN CORPUSCULAR HEMOGLOBIN 32 PG (25-34); MEAN CORPUSCULAR HGB CONC 33 G/DL (32-36); MEAN CORPUSCULAR VOLUME 99 FL (80-99); MEAN PLATELET VOLUME 9.3 FL (7.4-10.4); MONOCYTES # (AUTO) 0.3 X 10^3 (0.0-1.0); MONOCYTES % (AUTO) 7 % (0-12); NEUTROPHILS # (AUTO) 2.1 X 10^3 (1.8-7.8); NEUTROPHILS % (AUTO) 53 % (42-75); PLATELET COUNT 151 10^3/uL (130-400); RED BLOOD COUNT 2.67 10^6/uL (4.35-5.85); RED CELL DISTRIBUTION WIDTH 15.2 % (10.0-14.5)
[2018-01-05 14:11] LABS: BASOPHILS % (AUTO) 1 % (0-10); EOSINOPHILS # (AUTO) 0.4 10^3/uL (0.0-0.3); EOSINOPHILS % (AUTO) 10 % (0-10); HEMATOCRIT 26 % (35-52); HEMOGLOBIN 8.5 G/DL (11.5-16.0); LYMPHOCYTES % (AUTO) 23 % (12-44); MEAN CORPUSCULAR HEMOGLOBIN 32 PG (25-34); MEAN CORPUSCULAR HGB CONC 33 G/DL (32-36); MEAN CORPUSCULAR VOLUME 97 FL (80-99); MONOCYTES # (AUTO) 0.3 X 10^3 (0.0-1.0); MONOCYTES % (AUTO) 6 % (0-12); NEUTROPHILS # (AUTO) 2.5 X 10^3 (1.8-7.8); NEUTROPHILS % (AUTO) 60 % (42-75); PLATELET COUNT 136 10^3/uL (130-400); RED BLOOD COUNT 2.64 10^6/uL (4.35-5.85); RED CELL DISTRIBUTION WIDTH 14.3 % (10.0-14.5); WHITE BLOOD COUNT 4.2 10^3/uL (4.3-11.0)
[2018-01-12 13:55] LABS: BASOPHILS % (AUTO) 1 % (0-10); EOSINOPHILS # (AUTO) 0.4 10^3/uL (0.0-0.3); EOSINOPHILS % (AUTO) 9 % (0-10); HEMATOCRIT 24 % (35-52); HEMOGLOBIN 7.7 G/DL (11.5-16.0); LYMPHOCYTES # (AUTO) 1.1 X 10^3 (1.0-4.0); LYMPHOCYTES % (AUTO) 25 % (12-44); MEAN CORPUSCULAR HEMOGLOBIN 32 PG (25-34); MEAN CORPUSCULAR HGB CONC 32 G/DL (32-36); MEAN CORPUSCULAR VOLUME 100 FL (80-99); MEAN PLATELET VOLUME 10.2 FL (7.4-10.4); MONOCYTES # (AUTO) 0.4 X 10^3 (0.0-1.0); MONOCYTES % (AUTO) 9 % (0-12); NEUTROPHILS # (AUTO) 2.5 X 10^3 (1.8-7.8); NEUTROPHILS % (AUTO) 57 % (42-75); PLATELET COUNT 132 10^3/uL (130-400); RED BLOOD COUNT 2.39 10^6/uL (4.35-5.85); RED CELL DISTRIBUTION WIDTH 14.4 % (10.0-14.5); WHITE BLOOD COUNT 4.4 10^3/uL (4.3-11.0)
[2018-01-12 14:20] LABS: ALBUMIN 3.7 GM/DL (3.2-4.5); BILIRUBIN,TOTAL 0.5 MG/DL (0.1-1.0); CALCIUM 9.5 MG/DL (8.5-10.1); CREATININE SERUM 1.37 MG/DL (0.60-1.30); POTASSIUM 4.7 MMOL/L (3.6-5.0)
[~2018-01-19 11:36] MED LIST changes: +ACETAMINOPHEN 500 MG TAB (TYLENOL) CANCER CTR ONE; +CYANOCOBALAMIN INJ 1000 MCG/ML (CANCER CENTER) ONE; +FERRIC CARBOXYMALTOSE (CANCER) 750 MG in NS (IVPB) CANCER CENTER 250 ML IV SCH; +FUROSEMIDE 40 MG/4 ML INJ (CANCER CTR) ONE; +NS (IVPB) CANCER CENTER 250 ML ONE; +NS IV 1000 ML (CANCER CTR) 1,000 ML ONE; +NS IV 500 ML (CANCER CENTER) 500 ML ONE; -ROSU5TAB11 PO; +ROSU5TAB12 PO
[2018-01-19 12:00] LABS: ABSOLUTE RETIC # 64 10e9/L (24-90); BASOPHILS % (AUTO) 1 % (0-10); EOSINOPHILS # (AUTO) 0.4 10^3/uL (0.0-0.3); EOSINOPHILS % (AUTO) 10 % (0-10); HEMATOCRIT 29 % (35-52); HEMOGLOBIN 9.2 G/DL (11.5-16.0); LYMPHOCYTES % (AUTO) 26 % (12-44); MEAN CORPUSCULAR HEMOGLOBIN 31 PG (25-34); MEAN CORPUSCULAR HGB CONC 32 G/DL (32-36); MEAN CORPUSCULAR VOLUME 96 FL (80-99); MEAN PLATELET VOLUME 9.7 FL (7.4-10.4); MONOCYTES # (AUTO) 0.4 X 10^3 (0.0-1.0); MONOCYTES % (AUTO) 10 % (0-12); NEUTROPHILS % (AUTO) 53 % (42-75); PLATELET COUNT 140 10^3/uL (130-400); RED BLOOD COUNT 2.98 10^6/uL (4.35-5.85); RED CELL DISTRIBUTION WIDTH 14.5 % (10.0-14.5); RETICULOCYTE % 2.16 % (0.50-2.40); WHITE BLOOD COUNT 3.8 10^3/uL (4.3-11.0)
== END 2018-01-25 | disposition home or self-care (01) ==
LOC: ONC 11:36
PROVIDERS: ATTEND Internal Medicine Hematology & Oncology
DX: D50.9 Iron deficiency anemia, unspecified (principal); I25.10 Atherosclerotic heart disease of native coronary artery without angina pectoris; E03.9 Hypothyroidism, unspecified; I12.9 Hypertensive chronic kidney disease with stage 1 through stage 4 chronic kidney disease, or unspecified chronic kidney disease; N18.3 Chronic kidney disease, stage 3 (moderate); E11.22 Type 2 diabetes mellitus with diabetic chronic kidney disease; I48.91 Unspecified atrial fibrillation; Z79.899 Other long term (current) drug therapy
CPT/HCPCS: 36415; 36430; 80053; 82728; 84443; 85025; 85045; 86850; 86870; 86900; 86901; 86902; 86920; 86922; 96365; 96372; 96374; 96375; 99213

== ENCOUNTER 2018-02-10 13:30 | Outpatient (RCR) | payer OTHER ==
[2018-01-27 11:32] LABS: BASOPHILS % (AUTO) 1 % (0-10); EOSINOPHILS # (AUTO) 0.3 10^3/uL (0.0-0.3); EOSINOPHILS % (AUTO) 9 % (0-10); HEMATOCRIT 27 % (35-52); HEMOGLOBIN 8.7 G/DL (11.5-16.0); LYMPHOCYTES % (AUTO) 28 % (12-44); MEAN CORPUSCULAR HEMOGLOBIN 31 PG (25-34); MEAN CORPUSCULAR HGB CONC 33 G/DL (32-36); MEAN CORPUSCULAR VOLUME 95 FL (80-99); MEAN PLATELET VOLUME 9.9 FL (7.4-10.4); MONOCYTES # (AUTO) 0.4 X 10^3 (0.0-1.0); MONOCYTES % (AUTO) 11 % (0-12); NEUTROPHILS # (AUTO) 1.8 X 10^3 (1.8-7.8); NEUTROPHILS % (AUTO) 51 % (42-75); PLATELET COUNT 143 10^3/uL (130-400); RED BLOOD COUNT 2.79 10^6/uL (4.35-5.85); RED CELL DISTRIBUTION WIDTH 13.8 % (10.0-14.5); WHITE BLOOD COUNT 3.5 10^3/uL (4.3-11.0)
[2018-02-03 11:17] LABS: BASOPHILS % (AUTO) 1 % (0-10); EOSINOPHILS # (AUTO) 0.3 10^3/uL (0.0-0.3); EOSINOPHILS % (AUTO) 7 % (0-10); HEMATOCRIT 22 % (35-52); HEMOGLOBIN 7.4 G/DL (11.5-16.0); LYMPHOCYTES # (AUTO) 1.2 X 10^3 (1.0-4.0); LYMPHOCYTES % (AUTO) 26 % (12-44); MEAN CORPUSCULAR HEMOGLOBIN 32 PG (25-34); MEAN CORPUSCULAR HGB CONC 34 G/DL (32-36); MEAN CORPUSCULAR VOLUME 95 FL (80-99); MEAN PLATELET VOLUME 10.5 FL (7.4-10.4); MONOCYTES # (AUTO) 0.6 X 10^3 (0.0-1.0); MONOCYTES % (AUTO) 13 % (0-12); NEUTROPHILS # (AUTO) 2.5 X 10^3 (1.8-7.8); NEUTROPHILS % (AUTO) 54 % (42-75); PLATELET COUNT 146 10^3/uL (130-400); RED BLOOD COUNT 2.29 10^6/uL (4.35-5.85); RED CELL DISTRIBUTION WIDTH 13.6 % (10.0-14.5); WHITE BLOOD COUNT 4.6 10^3/uL (4.3-11.0)
[~2018-02-10 13:30] MED LIST changes: -ACETAMINOPHEN 500 MG TAB (TYLENOL) CANCER CTR ONE; -CYANOCOBALAMIN INJ 1000 MCG/ML (CANCER CENTER) ONE; -FUROSEMIDE 40 MG/4 ML INJ (CANCER CTR) ONE; +METF-399 PO; -METF10002 PO; -NS IV 1000 ML (CANCER CTR) 1,000 ML ONE; -NS IV 500 ML (CANCER CENTER) 500 ML ONE
[2018-02-10 13:43] LABS: BASOPHILS % (AUTO) 1 % (0-10); EOSINOPHILS # (AUTO) 0.4 10^3/uL (0.0-0.3); EOSINOPHILS % (AUTO) 9 % (0-10); LYMPHOCYTES # (AUTO) 1.1 X 10^3 (1.0-4.0); LYMPHOCYTES % (AUTO) 24 % (12-44); MEAN CORPUSCULAR HEMOGLOBIN 31 PG (25-34); MEAN CORPUSCULAR HGB CONC 32 G/DL (32-36); MEAN CORPUSCULAR VOLUME 97 FL (80-99); MEAN PLATELET VOLUME 10.1 FL (7.4-10.4); MONOCYTES # (AUTO) 0.5 X 10^3 (0.0-1.0); MONOCYTES % (AUTO) 11 % (0-12); NEUTROPHILS # (AUTO) 2.6 X 10^3 (1.8-7.8); NEUTROPHILS % (AUTO) 56 % (42-75); PLATELET COUNT 140 10^3/uL (130-400); RED BLOOD COUNT 2.09 10^6/uL (4.35-5.85); WHITE BLOOD COUNT 4.7 10^3/uL (4.3-11.0)
[2018-02-10 13:45] LABS: HEMATOCRIT 20 % (35-52); HEMOGLOBIN 6.4 G/DL (11.5-16.0)
[2018-02-10] MEDS ORDERED: CYANOCOBALAMIN INJ 1000 MCG/ML (CANCER CENTER) ONE (14:39)
[2018-02-11] MEDS ORDERED: EZET10TA5 PO (10:29)
[2018-02-11] MEDS ORDERED: DIPH25CA79 PO (10:29)
[2018-02-11] MEDS ORDERED: FOLI1TAB24 PO (10:29)
[2018-02-11] MEDS ORDERED: LEVO175T5 PO (10:29)
[2018-02-11] MEDS ORDERED: ENAL5TAB PO (10:35)
== END 2018-03-02 14:53 | disposition home or self-care (01) ==
LOC: ONC 13:30
PROVIDERS: ATTEND Internal Medicine Hematology & Oncology
DX: D50.9 Iron deficiency anemia, unspecified (principal); I25.10 Atherosclerotic heart disease of native coronary artery without angina pectoris; E03.9 Hypothyroidism, unspecified; I12.9 Hypertensive chronic kidney disease with stage 1 through stage 4 chronic kidney disease, or unspecified chronic kidney disease; N18.3 Chronic kidney disease, stage 3 (moderate); E11.22 Type 2 diabetes mellitus with diabetic chronic kidney disease; I48.91 Unspecified atrial fibrillation; Z79.899 Other long term (current) drug therapy
CPT/HCPCS: 36415; 36430; 82728; 85025; 86850; 86900; 86901; 86902; 86922; 96365; 96372

== ENCOUNTER 2018-02-10 23:23 | Inpatient (IN) | payer OTHER ==
[~2018-02-10] VITALS: Ht 162.6 cm; Wt 114.8 kg
[~2018-02-10 23:23] MED LIST changes: -FERRIC CARBOXYMALTOSE (CANCER) 750 MG in NS (IVPB) CANCER CENTER 250 ML IV SCH; -NS (IVPB) CANCER CENTER 250 ML ONE
[2018-02-10] MEDS ORDERED: ASPIRIN 81 MG CHEW (CHILDREN'S ASA) PO ONE (23:30)
[2018-02-10] MEDS: NITROGLYCERIN 0.4 MG SL TABS BTL 25'S SL PRN ×3 (23:32→23:50)
[2018-02-10 23:45] LABS: BASOPHILS % (AUTO) 0 % (0-10); EOSINOPHILS # (AUTO) 0.4 10^3/uL (0.0-0.3); EOSINOPHILS % (AUTO) 7 % (0-10); HEMATOCRIT 21 % (35-52); LYMPHOCYTES # (AUTO) 0.8 X 10^3 (1.0-4.0); LYMPHOCYTES % (AUTO) 16 % (12-44); MEAN CORPUSCULAR HEMOGLOBIN 31 PG (25-34); MEAN CORPUSCULAR HGB CONC 32 G/DL (32-36); MEAN CORPUSCULAR VOLUME 97 FL (80-99); MEAN PLATELET VOLUME 10.7 FL (7.4-10.4); MONOCYTES # (AUTO) 0.5 X 10^3 (0.0-1.0); MONOCYTES % (AUTO) 9 % (0-12); NEUTROPHILS # (AUTO) 3.4 X 10^3 (1.8-7.8); NEUTROPHILS % (AUTO) 67 % (42-75); PLATELET COUNT 161 10^3/uL (130-400); RED BLOOD COUNT 2.13 10^6/uL (4.35-5.85); RED CELL DISTRIBUTION WIDTH 17.2 % (10.0-14.5); WHITE BLOOD COUNT 5.1 10^3/uL (4.3-11.0)
[2018-02-10 23:47] LABS: HEMOGLOBIN 6.6 G/DL (11.5-16.0)
[2018-02-10 23:58] LABS: INR 1.1 (0.8-1.4)
[2018-02-11] VITALS (60 sets, daily range): BP systolic 99–181; BP diastolic 2–90
[2018-02-11 00:05] LABS: ALANINE AMINOTRANSFERASE 13 U/L (0-55); ALBUMIN 3.7 GM/DL (3.2-4.5); ALKALINE PHOSPHATASE 67 U/L (40-136); AMYLASE 47 U/L (25-125); BILIRUBIN,TOTAL 0.5 MG/DL (0.1-1.0); BUN/CREATININE RATIO 18; CALCIUM 9.4 MG/DL (8.5-10.1); CARBON DIOXIDE 21 MMOL/L (21-32); CHLORIDE 104 MMOL/L (98-107); CREATINE KINASE 46 U/L (29-168); CREATININE SERUM 1.39 MG/DL (0.60-1.30); GFR ESTIMATED 39; GLUCOSE 383 MG/DL (70-105); LIPASE 53 U/L (8-78); MAGNESIUM 1.7 MG/DL (1.8-2.4); POTASSIUM 4.2 MMOL/L (3.6-5.0); SODIUM 136 MMOL/L (135-145); TOTAL PROTEIN 7.2 GM/DL (6.4-8.2)
[2018-02-11 00:12] LABS: CREATINE KINASE MB 0.8 NG/ML (<6.6); MYOGLOBIN SERUM 35.1 NG/ML (10.0-92.0)
[2018-02-11] MEDS ORDERED: NITROGLYCERIN 2% OINT 1 GM UNIT DOSE PACKET TOP ONE (00:15)
[2018-02-11] MEDS ORDERED: morphine INJ 10 MG/ML 1ML (SYR OR VIAL) IVP STA ×2 (00:15→00:49)
[2018-02-11] MEDS ORDERED: FUROSEMIDE 40 MG/4 ML INJ (LASIX) IVP ONE (00:30)
[2018-02-11] MEDS ORDERED: PANTOPRAZOLE 40 MG (PROTONIX) VIAL IV ONE (00:45)
[2018-02-11] MEDS ORDERED: ONDANSETRON 4 MG/2 ML (SDV) Z0FRAN IVP ONE (00:45)
[2018-02-11] MEDS ORDERED: NS (IVPB) 250 ML ONE (02:23)
[2018-02-11] MEDS: morphine INJ 4 MG/ML 1 ML (VIAL/SYRINGE) IV PRN ×4 (02:48→20:25)
[2018-02-11] MEDS ORDERED: ONDANSETRON 4 MG/2 ML (SDV) Z0FRAN ONE (03:40)
[2018-02-11] MEDS: ONDANSETRON 4 MG/2 ML (SDV) Z0FRAN IVP PRN ×3 (03:48→20:22)
[2018-02-11 05:13] LABS: BASOPHILS % (AUTO) 1 % (0-10); EOSINOPHILS # (AUTO) 0.2 10^3/uL (0.0-0.3); EOSINOPHILS % (AUTO) 3 % (0-10); HEMATOCRIT 22 % (35-52); HEMOGLOBIN 7.3 G/DL (11.5-16.0); LYMPHOCYTES % (AUTO) 13 % (12-44); MEAN CORPUSCULAR HEMOGLOBIN 32 PG (25-34); MEAN CORPUSCULAR HGB CONC 33 G/DL (32-36); MEAN CORPUSCULAR VOLUME 96 FL (80-99); MEAN PLATELET VOLUME 10.6 FL (7.4-10.4); MONOCYTES # (AUTO) 0.6 X 10^3 (0.0-1.0); MONOCYTES % (AUTO) 7 % (0-12); NEUTROPHILS # (AUTO) 5.8 X 10^3 (1.8-7.8); NEUTROPHILS % (AUTO) 77 % (42-75); PLATELET COUNT 188 10^3/uL (130-400); RED CELL DISTRIBUTION WIDTH 16.6 % (10.0-14.5); WHITE BLOOD COUNT 7.6 10^3/uL (4.3-11.0)
[2018-02-11] MEDS ORDERED: ONDANSETRON 4 MG/2 ML (SDV) Z0FRAN IV ONE (05:15)
[2018-02-11 05:35] LABS: ALANINE AMINOTRANSFERASE 12 U/L (0-55); ALBUMIN 3.7 GM/DL (3.2-4.5); ALKALINE PHOSPHATASE 67 U/L (40-136); BILIRUBIN,TOTAL 0.7 MG/DL (0.1-1.0); BUN/CREATININE RATIO 18; CALCIUM 9.3 MG/DL (8.5-10.1); CARBON DIOXIDE 22 MMOL/L (21-32); CHLORIDE 103 MMOL/L (98-107); CHOLESTEROL 188 MG/DL (< 200); GFR ESTIMATED 42; HDL CHOLESTEROL 34 MG/DL (40-60); MAGNESIUM 1.6 MG/DL (1.8-2.4); PHOSPHORUS 3.4 MG/DL (2.3-4.7); POTASSIUM 4.7 MMOL/L (3.6-5.0); SODIUM 136 MMOL/L (135-145); TOTAL PROTEIN 7.1 GM/DL (6.4-8.2); TRIGLYCERIDES 172 MG/DL (<150); VLDL CHOLESTEROL 34 MG/DL (5-40)
[2018-02-11] MEDS: MAGNESIUM 1 GM/100 ML IVPB 100 ML IV SCH ×3 (05:35→11:00)
[2018-02-11] MEDS: POTASSIUM CL 10MEQ/50ML IVPB 50 ML IV SCH (05:35)
[2018-02-11] MEDS: KCL 20 MEQ TAB (K-DUR) PO SCH (05:35)
[2018-02-11 05:42] LABS: CARDIAC PROFILE 2 < 0.30 NG/ML (<0.30); GLUCOSE 438 MG/DL (70-105); MYOGLOBIN SERUM 43.9 NG/ML (10.0-92.0)
[2018-02-11] MEDS ORDERED: inSUlin ASPART (NovoLOG) 1 UNIT/0.01 ML (CHARGE PER UNIT) SC SCH ×2 (06:00→11:00)
[2018-02-11] MEDS: NITROGLYCERIN 2% OINT 1 GM UNIT DOSE PACKET TOP SCH ×3 (06:14→18:36)
[2018-02-11] MEDS ORDERED: inSUlin DETERMIR 1 UNIT/0.01 ML (LEVEMIR) CHARGE PER UNIT SQ ONE (06:15)
[2018-02-11] MEDS ORDERED: inSUlin ASPART (NovoLOG) 1 UNIT/0.01 ML (CHARGE PER UNIT) SC NR (06:25)
[2018-02-11] MEDS: inSUlin ASPART (NovoLOG) 1 UNIT/0.01 ML (CHARGE PER UNIT) SC SCH ×4 (06:37→20:16)
--- OUTSIDE RECORDS SUMMARY | 2018-02-11 07:16 | XMS REPORT | Encounter Summary ---
Author Author [facility] Address Unknown Phone Unavailable Care Team Providers Care Assisted Living Associate Name Role Phone Carla Wilson MD PCP Naima Field MD Unavailable Encounter Details Date Type Department Care Team Description 11/18/2017 Procedure Pass Gastrointenstinal Endoscopy [address] [place] [address] Social History Tobacco Use Types Packs/Day Years [...]
--- OUTSIDE RECORDS SUMMARY | 2018-02-11 07:16 | XMS REPORT | Encounter Summary ---
Author Author [facility] Organization [facility] Address Unknown Phone Unavailable Care Team Providers Care Hadoop Application Developer Name Role Phone Carla Wilson MD PCP Naima Field MD Unavailable Reason for Visit * Reason Comments Results Encounter Details Date Type Department Care Team Description 12/11/2017 Telephone [facility] Dannielle Covington MD Results Physicians [address] Ortho and Medical [place] [address] [place] [address] [phone] [place] [address] Social History Tobacco Use Types Packs/Day Years [...] impairment: Yes 11/11/2017 as of this encounter Miscellaneous Notes * Telephone Encounter - Fanny Pastrana RN - 12/11/2017 3:30 PM CDT Formatting of this note may be different from the original. Contacted pt on information below. Pt verbalized understanding. Pt requested this information be sent to her PCP, Dr. Carla Wilson. On review, these results have already be sent to PCP on 11/17/17. Pt also requesting ordered diagnostic test to be sent to PCP due to financial hardship. See telephone encounter . Per pt, PCP has more resources to help pay. Last office visit faxed to PCP office for review. Pt had no further questions or concerns. Paul Quintero MD sent to Fanny Pastrana Normal folate, B12 and negative tTG (no celiac disease). in this encounter Plan of Treatment Not on fileas of this encounter Visit Diagnoses Not on filein this encounter
--- OUTSIDE RECORDS SUMMARY | 2018-02-11 07:16 | XMS REPORT | Encounter Summary ---
Author Author [facility] Address Unknown Phone Unavailable Care Team Providers Care Anode Worker Name Role Phone Carla Wilson MD PCP Naima Field MD Unavailable Reason for Visit * Reason Comments Financial Concerns Encounter Details Date Type Department Care Team Description 11/16/2017 Telephone [facility] Dannielle Covington MD Financial Concerns Physicians [address] Ortho and Medical [place] [address] [place] [address] [phone] [place] [address] Social History Tobacco Use Types [...] encounter Miscellaneous Notes * Telephone Encounter - Jess Sanches LPN - 11/17/2017 10:51 AM CDT Received notice from financial services stating pt will need to cancel/ reschedule. Cancellation form sent to endoscopy lab. Spoke to pt who states she does not have the money to get insurance at this time. Transferred pt to Recreation Therapist to help further assist. Advised pt to contact our office with any questions/concerns and if symptomatic. From: Crispin Gibson Sent: Friday, November 17, 2017 10:10 AM To: Jess Sanches Subject: RE: Patient is unable to pay for testing tomorrow. We will have to have her cancelled or rescheduled until she has active insurance or can make payment arrangements. Thanks again for all your assistance! Crispin Gibson Biodiesel Product Development Manager Patient Financial Services [address] [facility] Office: FAX: e-mail: [email or web address] * Telephone Encounter - Jess Sanches LPN - 11/17/2017 9:26 AM CDT Message sent to financial office. * Telephone Encounter - Dannielle Covington MD - 11/17/2017 9:21 AM CDT Capsule endoscopy could be postponed to the next 3 months. * Telephone Encounter - Jess Sanches LPN - 11/16/2017 2:51 PM CDT Received VM from [facility] Advisor Crispin Gibson. Pt scheduled for Capsule endoscopy 11/18/17 and does not have any insurance or money to pay for procedure. Financial office requesting to know if procedure is emergent/urgent in order to proceed. Routing to Dr. Covington to advise. in this encounter Plan of Treatment Not on fileas of this encounter Visit Diagnoses Not on filein this encounter
--- OUTSIDE RECORDS SUMMARY | 2018-02-11 07:16 | XMS REPORT | Encounter Summary ---
Author Author [facility] Organization [facility] Address Unknown Phone Unavailable Care Team Providers Care Commonwealth Attorney Name Role Phone Carla Wilson MD PCP Naima Field MD Unavailable Encounter Details Date Type Department Care Team Description 11/11/2017 Prep for Case [facility] Dannielle Covington MD Other iron deficiency Physicians - Internal [address] anemia (Primary Dx) Medicine [place] [address] [place] [address] [facility] [phone] [place] [address] [phone] Social History Tobacco Use Types Packs/Day Years [...] on fileas of this encounter Visit Diagnoses Diagnosis Other iron deficiency anemia - Primary
--- OUTSIDE RECORDS SUMMARY | 2018-02-11 07:16 | XMS REPORT | Encounter Summary ---
Author Author [facility] Organization [facility] Address Unknown Phone Unavailable Care Team Providers Care Grain Grader Name Role Phone Carla Wilson MD PCP Naima Field MD Unavailable Encounter Details Date Type Department Care Team Description 11/19/2017 Orders Only [facility] Dannielle Covington MD Iron deficiency anemia, Physicians [address] unspecified iron Ortho and Medical [place] 1023 deficiency anemia type; [address] [place] [address] Nausea and vomiting, [address] [phone] intractability of [place], [place] vomiting not specified, [address] unspecified vomiting type [phone] Social History Tobacco Use Types Packs/Day Years [...] on fileas of this encounter Results * TISSUE TRANSGLUTAMINASE AB IGA (11/17/2017) Specimen Blood Narrative Performed At Performing Organization Address City/State/Zipcode Phone Number OTHER OUTSIDE LAB * FOLATE, SERUM (11/17/2017) Serum Folate 17.1 OTHER OUTSIDE LAB Specimen Blood - Blood Narrative Performed At Performing Organization Address City/State/Zipcode Phone Number OTHER OUTSIDE LAB in this encounter Visit Diagnoses Diagnosis Iron deficiency anemia, unspecified iron deficiency anemia type Nausea and vomiting, intractability of vomiting not specified, unspecified vomiting type
--- OUTSIDE RECORDS SUMMARY | 2018-02-11 07:16 | XMS REPORT | Encounter Summary ---
Author Author [facility] Organization [facility] Address Unknown Phone Unavailable Care Team Providers Care Cisco Certified Network Professional Name Role Phone Carla Wilson MD PCP Naima Field MD Unavailable Encounter Details Date Type Department Care Team Description 11/30/2017 Orders Only [facility] Dannielle Covington MD Iron deficiency anemia, Physicians [address] unspecified iron Ortho and Medical [place] 1023 deficiency anemia type; [address] [place] [address] Nausea and vomiting, [address] [phone] intractability of [place], [place] vomiting not specified, [address] unspecified vomiting type [phone] Social History Tobacco Use Types Packs/Day Years [...] on fileas of this encounter Results * ANTI-PARIETAL CELL ANTIBODY (11/17/2017) Specimen Blood Narrative Performed At Performing Organization Address City/State/Zipcode Phone Number OTHER OUTSIDE LAB in this encounter Visit Diagnoses Diagnosis Iron deficiency anemia, unspecified iron deficiency anemia type Nausea and vomiting, intractability of vomiting not specified, unspecified vomiting type
--- OUTSIDE RECORDS SUMMARY | 2018-02-11 07:16 | XMS REPORT | Clinical Summary ---
Author Author [facility] Organization [facility] Address Unknown Phone Unavailable Care Team Providers Care Performance Engineer Name Role Phone Carla Wilson MD PCP Naima Field MD Unavailable Source Comments Some departments are not documenting in the electronic medical record. If you do not see the information that you expected, contact Release of Information in the Health Information Management department at [phone] for further assistance in locating additional records.[facility] [...] Overview: Added automatically from request for surgery [id number] Anemia 09/28/2017 Encounters Date Type Specialty Care Team Description 12/11/2017 Telephone GastroenterDannielle Tomas MD Results 11/30/2017 Orders Only GastroenterDannielle Tomas MD Iron deficiency anemia, unspecified iron deficiency anemia type; Nausea and vomiting, intractability of vomiting not specified, unspecified vomiting type 11/19/2017 Orders Only Dannielle Barraza MD Iron deficiency anemia, unspecified iron deficiency anemia type; Nausea and vomiting, intractability of vomiting not specified, unspecified vomiting type 11/18/2017 Telephone Dannielle Barraza MD Follow-up Phone Call (asst/no insurance) 11/18/2017 Procedure Pass 11/16/2017 Telephone GastroenterDannielle Tomas MD Financial Concerns 11/11/2017 Office Visit Gastroenterology Paul Quintero, Jacobo flores MD unspecified iron deficiency anemia type (Primary Dx); Rectal bleeding; Rectal pain; Nausea and vomiting, intractability of vomiting not specified, unspecified vomiting type 11/11/2017 Prep for Case Gastroenterology Dannielle Covington MD Other iron deficiency anemia (Primary Dx) from Last 3 Months Family History Medical [...] 11/11/2017 2:22 PM CDT Plan of Treatment Health Maintenance Due Date Last Done Comments HEPATITIS C SCREENING 1957 PHYSICAL (COMPREHENSIVE) 1964 EXAM PERTUSSIS VACCINE 1968 HIV SCREENING 1972 TETANUS VACCINE 1974 CERVICAL CANCER SCREENING 1987 BREAST CANCER SCREENING 1997 COLORECTAL CANCER 2007 SCREENING SHINGLES RECOMBINANT 2007 VACCINE (1 of 2) INFLUENZA VACCINE 03/15/2018 03/15/2017 (Previously completed), 04/09/2000, 03/27/1999, Additional history exists Results * TISSUE TRANSGLUTAMINASE AB IGA (11/17/2017) Specimen Blood Narrative Performed At Performing Organization Address City/State/[employer] Phone Number OTHER OUTSIDE LAB * ANTI-PARIETAL CELL ANTIBODY (11/17/2017) Specimen Blood Narrative Performed At Performing Organization Address City/State/[employer] Phone Number OTHER OUTSIDE LAB * FOLATE, SERUM (11/17/2017) Serum Folate 17.1 OTHER OUTSIDE LAB Specimen Blood - Blood Narrative Performed At Performing Organization Address City/State/[employer] Phone Number OTHER OUTSIDE LAB * VITAMIN B12 (11/17/2017) Specimen Blood Narrative Performed At Performing Organization Address City/[employer] Phone Number OTHER OUTSIDE LAB from Last 3 Months
--- OUTSIDE RECORDS SUMMARY | 2018-02-11 07:16 | XMS REPORT | Encounter Summary ---
Author Author [facility] Organization [facility] Address Unknown Phone Unavailable Care Team Providers Care Land Conservation Specialist Name Role Phone Carla Wilson MD PCP Naima Field MD Unavailable Reason for Visit * Reason Comments Follow-up Phone Call asst/no insurance Encounter Details Date Type Department Care Team Description 11/18/2017 Telephone [facility] Dannielle Covington MD Follow- up Phone Call Physicians - Internal [address] [place] [address] (asst/no insurance) Medicine [place] [address] [place] [address] [address] [facility] [place] [phone] [place] [address] [phone] Social History Tobacco Use Types Packs/Day Years [...] encounter Miscellaneous Notes * Telephone Encounter - Diana Xiao - 11/18/2017 8:57 AM CDT 11-17-17 VM received from pt requesting a return call to discuss asst. Pt states she's uninsured. 11-18-17 Return call placed. Pt reports being uninsured and needs a capsule test but cannot afford the $2,000 required for this. This worker inquired about work/disability options. Pt confirms receiving disability and states she' s not eligible for Medicaid. Pt later states she declined Medicaid due to the spend down being too high ($8,000 to $10,000) and they could not afford to pay this. This worker briefly explained the spend down process to pt and encouraged she reapply for Medicaid in hopes this will help her in receiving the required tests. Pt reluctantly accepted this worker mailing her a Medicaid application to reapply. Agreed. This worker inquired pt about her Medicare eligibility date. Pt states she's not sure when she'd be Medicare eligible and this worker encouraged pt to contact [employer] for an exact date. Agreed. This worker also encouraged pt to think about purchasing insurance through the [employer] however pt denied being able to afford this as well. No additional needs. Call concluded. [place] Medicaid application, billing/financial counselor contact info, and [employer] info mailed to pt for asst as needed. in this encounter Plan of Treatment Not on fileas of this encounter Visit Diagnoses Not on filein this encounter
--- OUTSIDE RECORDS SUMMARY | 2018-02-11 07:17 | XMS REPORT | Encounter Summary ---
Author Author [facility] Organization [facility] Address Unknown Phone Unavailable Care Team Providers Care Manufacturing Helper Name Role Phone Carla Wilson MD PCP Naima Field MD Unavailable Reason for Referral * Radiology Services Status Reason Specialty Diagnoses / Referred By Referred To Procedures Contact Contact New Request Radiology Diagnoses Adria, Iron deficiency MD Dannielle anemia, [address] deficiency [place] 1023 [place] [address] rocedures Phone: [place] GI BLEED [phone] DETECTION Reason for Visit * Reason Comments Abdominal Distention Abdominal pain Anal Bleeding Blood in stools Diarrhea Nausea Anal Pain Vomiting * Consult, Test & Treat (Routine) Status Reason Specialty Diagnoses / Referred By Referred To Procedures Contact Contact No Auth Needed Gastroenterology Diagnoses Naima Field Grisolano, [place], Anemia MD KHOURY Unspecified [address] [facility] [address] chronic [place], [place] 1023 gastritis with [address] [place], [place] bleeding Phone: [phone] Phone: Encounter Details Date Type Department Care Team Description 11/11/2017 Office Visit [facility] Paul Quintero, Iron deficiency anemia, Physicians - Internal unspecified iron Medicine [address] deficiency anemia type [place] [address] (Primary Dx); [address] [phone] Rectal bleeding; [place] [address] Rectal pain; [phone] Nausea and vomiting, intractability of vomiting not [...] 11/11/2017 3:00 PM CDT Schedule capsule endoscopy [phone], option 2 and follow your prep instructions. Your golytely bowel prep has been sent to your pharmacy. Blood work and may be drawn locally. Please let our office know if you have not received your results within 1 week after having drawn [phone] Schedule ultrasound of the abdomen & Nuclear Medicine bleed scan [phone] in this encounter Progress Notes * Dannielle [...] she was referred to Dr. Haywood, at [facility] in [facility] [place]. She has been diagnosed with iron deficiency [...] last 4-6 months. The bowel movements are [place] scale type , he has 4-6 bowel [...] 17 July 2017 by a surgeon at [place], [place]. EGD shows diffusely erythematous mucosa of [...] In the meantime she should see her automotive fuel systems converter to get optimized in terms of cardiac [...] Orders in this encounter Plan of Treatment Name Priority Associated Diagnoses Order Schedule US DOPPLER ABD PELV RETROPER COMP Routine Iron deficiency anemia, Expected: 11/11/2017 unspecified iron (Approximate), Expires: deficiency anemia type 11/11/2018 Nausea and vomiting, intractability of vomiting not specified, unspecified vomiting type NM GI BLEED DETECTION Routine Iron deficiency anemia, Expected: 2017 unspecified iron (Approximate), Expires: deficiency anemia type 11/11/2018 as of this encounter Results * TISSUE TRANSGLUTAMINASE AB IGA (11/17/2017) Specimen Blood Narrative Performed At Performing Organization Address City/State/Zipcode Phone Number OTHER OUTSIDE LAB * FOLATE, SERUM (11/17/2017) Serum Folate 17.1 OTHER OUTSIDE LAB Specimen Blood - Blood Narrative Performed At Performing Organization Address City/State/Zipcode Phone Number OTHER OUTSIDE LAB * ANTI-PARIETAL CELL ANTIBODY (11/17/2017) Specimen Blood Narrative Performed At Performing Organization Address City/State/Zipcode Phone Number OTHER OUTSIDE LAB * VITAMIN [...]
--- OUTSIDE RECORDS SUMMARY | 2018-02-11 07:17 | XMS REPORT ---
Author Author JULIO QUINN [facility] Address [address] [place] [address] Care Team Providers Care Bath Attendant Name Role Phone JULIO QUINN Unavailable PROBLEMS Type Condition ICD9-CM Code CVY08-RC Code Onset Dates Condition Status SNOMED Code Problem Acquired hypothyroidism E03.9 Active 025982371 Problem Angina pectoris syndrome I20.9 Active 132515321 Problem Persistent atrial fibrillation I48.1 Active 048565764 Problem 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 Active 249572250 Problem Non-insulin dependent type 2 diabetes mellitus E11.9 Active 42397035 Problem Coronary artery disease involving lower sioux coronary artery of lower sioux heart without angina pectoris I25.10 Active 6315681490309 Problem Essential hypertension I10 Active 60470871 Problem Congestive heart failure, unspecified HF chronicity, unspecified heart failure type I50.9 Active 16646786 Problem 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 Active 729316301 Problem Psoriasis L40.9 Active 5741725 Problem Microcytic anemia D50.9 Active 325885451 Problem Mixed hyperlipidemia E78.2 Active 039158275 Problem Reflux gastritis K29.60 Active 03474336 ALLERGIES Substance Reaction Event Type Date Status Cefadroxil nausea Drug Allergy October, Active Bactrim thrush Drug Allergy October, Active ALL STATINS nausea Non Drug Allergy October, Active ENCOUNTERS Encounter Location Date Diagnosis [facility] [address] [facility] [id number] [address] Jan, [facility] [address] [address] Jan, [facility] [address] [id number] [address] Jan, 2018 Non-insulin treated type 2 diabetes mellitus E11.9 ; Essential hypertension I10 ; Microcytic anemia D50.9 ; Persistent atrial fibrillation I48.1 and BMI 40.0-44.9, adult Z68.41 [facility] [address] [place] [address] Jan, [facility] [id number] [place] [address] Dec, [facility] [id number] [place] [address] Dec, Acquired hypothyroidism E03.9 [facility] [id number] [place] [address] Dec, [facility] [id number] [place] [address] Dec, [facility] [id number] [place] [address] Nov, Lower abdominal pain R10.30 and BMI 45.0-49.9, adult Z68.42 [facility] [address] [place] [address] Nov, BMI 45.0-49.9, adult Z68.42 [place] [id number] [place] [address] October, Congestive heart failure, unspecified HF chronicity, unspecified heart failure type I50.9 ; Acquired hypothyroidism E03.9 and BMI 45.0-49.9, adult Z68.42 [facility] [address] [place] [address]60[address] 9[address] October, Shortness of breath R06.02 [facility] [id number] [place] [address] October, [facility] [id number] [place] [address] 35758- 6269 October, [facility] [id number] [place] [address]- [address] October, Essential hypertension I10 ; Coronary artery disease involving lower si[place] coronary artery of lower [place] heart without angina pectoris I25.10 ; Angina pectoris syndrome I20.9 ; 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 and Persistent atrial fibrillation I48.1 [place] [id number] [place] [address] 18 Sep, 2017 Coronary artery disease involving lower si[place] coronary artery of lower [place] heart without angina pectoris I25.10 [place] [address] [address] Sep, [place] [address] [address] Sep, Angina pectoris syndrome I20.9 ; Paroxysmal atrial fibrillation I48.0 ; Microcytic anemia D50.9 ; 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 and 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 [place] [id number] [place] [address] Aug, Non-insulin dependent type 2 diabetes mellitus E11.9 ; Microcytic anemia D50.9 ; Essential hypertension I10 and Acquired hypothyroidism E03.9 [place] [id number] [place] [address] Jul, [place] [id number] [place] [address]96- 5796 Jul, [place] [id number] [place] [address] 76[address] Jun, [place] [id number] [place] [address] May, [place] [id number] [place] [address]- 7062 May, History of anemia Z86.2 [place] [id number] [place] [address]74- 8205 May, [place] [id number] [place] [address] May, [place] [id number] [place] [address] 366[address] May, Non-insulin treated type 2 diabetes mellitus E11.[address] [address] Apr, Abdominal pain, left upper quadrant R10.12 ; Essential hypertension I10 ; Non-intractable cyclical vomiting with nausea G43.A0 ; Microcytic anemia D50.9 ; Mixed hyperlipidemia E78.2 and BMI 45.0-49.9, adult Z68.[address] [address] Apr, [address] [address] Apr, Non-insulin treated type 2 diabetes mellitus E11.9 ; Essential hypertension I10 and Acquired hypothyroidism E03.[address] [address] Mar, Encounter for immunization Z23 [address] [address] Mar, [address] [address] Feb, Microcytic anemia D50.9 ; Pain of left great toe M79.675 and Reflux gastritis K29.[address] [address] Feb, Coronary artery disease involving lower sioux coronary artery of lower si[place] heart without angina pectoris I25.10 and Acquired hypothyroidism E03.[address] [address] Jan, Psoriasis L40.9 ; Paroxysmal atrial fibrillation I48.0 ; Shortness of breath R06.02 and Microcytic anemia D50.[address] [address]- [address] Dec, [address] [address] Dec, [facility] [id number] [place] [address]25[address] 0[address] Dec, Coronary artery disease involving lower si[place] coronary artery of lower [place] heart without angina pectoris I25.10 [place] [id number] [place] [address]79- 0[address] Nov, Therapeutic drug monitoring Z51.81 ; Essential hypertension I10 ; Microcytic anemia D50.9 and Shortness of breath R06.02 [place] [address] [id number] [address] Nov, Acquired hypothyroidism E03.9 [place] [id number] [place] [address]67- 4097 October, [place] [id number] [place] [address] 58951- 15[address] Sep, Coronary artery disease involving lower sioux coronary artery of lower [place] heart without angina pectoris I25.10 [facility] [address] [address] Aug, [place] [id number] [place] [address] 12614- 3987 Aug, Essential hypertension I10 [place] [address] [place] [address] 32415- 7856 Jul, Acquired hypothyroidism E03.9 ; Essential hypertension I10 ; Non-insulin treated type 2 diabetes mellitus E11.9 and Coronary artery disease involving lower si[place] coronary artery of lower [place] heart without angina pectoris I25.10 [place] [address] [address] Jul, [facility] [id number] [place] [address] 34405- 0438 Jul, Angina pectoris syndrome I20.9 and Essential hypertension I10 [place] [id number] [place] [address] 61988- 5[address] Jul, [facility] [address] [facility] [id number] [address] Jun, [facility] [address] [facility] [id number] [address] May, Abscess L02.91 [facility] [address] [facility] [id number] [address] Apr, Non-insulin dependent type 2 diabetes mellitus E11.9 ; Essential hypertension I10 ; Acquired hypothyroidism E03.9 ; History of anemia Z86.2 and Coronary artery disease involving lower sioux coronary artery of lower si[place] heart without angina pectoris I25.10 [facility] [address] [facility] [id number] [address] 14 Apr, 2016 IMMUNIZATIONS No Known Immunizations SOCIAL HISTORY Never Assessed REASON FOR VISIT SOB-awoodsMA, edema all over body, was in the ER on 11/06, lasix, and 2 units blood product at the hospital and got d/c that night, HGB today 8.5 from 7.1 on 11/06/17 PLAN OF CARE Activity Details Follow Up with Dr. Wilson (PCP) Reason:chronic illness VITAL SIGNS Height 5'4" in 2017-11-10 Weight 285 lbs 2017-11-10 Temperature 98 degrees Fahrenheit 2017-11-10 Heart Rate 78 bpm 2017-11-10 Respiratory Rate 22 2017-11-10 Oximetry 92 % 2017-11-10 BMI 48.91 kg/m2 2017-11-10 Blood pressure systolic 160 mmHg 2017-11-10 Blood pressure diastolic 58 mmHg 2017-11-10 MEDICATIONS Medication Instructions Dosage Frequency Start Date End Date Duration Status Promethazine HCl 25 MG TAKE ONE TABLET BY MOUTH EVERY 12 HOURS NEEDED 30 Active Glucosamine 1500 Complex - Active Clobetasol Propionate 0.05 % Externally Twice a day, PRN 1 application to affected area Jan, Active Metoprolol Succinate ER 100 mg Orally twice a day 1 tablet at bedtime 12h 06 Feb, 2017 Active Test strips GLUCOCARD EXPRESSION TEST STRIPS 12h Aug, Active Furosemide 20 mg Orally Once a day Take 2 tablets daily for next 5 days and then 1 tablet daily as needed. 24h 30 Active Zetia 10 mg Orally Once a day 1 tablet 24h 10 Dec, 2016 Not-Taking Glimepiride 1 MG Orally 2 times a day 2 12h Active Zofran 8 MG Orally Once a day 1 tablet 24h 30 Apr, 2017 30 day(s) Active Tizanidine HCl 4 MG Orally Three times a day 1 tablet as needed 8h 13 Jul, 2017 Active Folic Acid 800 MCG Orally Once a day 1 tablet 24h Apr, 90 days Active Metoprolol Succinate ER 50 mg Orally Once a day 1 tablet in am 24h Not-Taking Prilosec 40 mg Orally BID 1 capsule 12h 90 days Active Metformin HCl 1000 MG TAKE ONE TABLET BY MOUTH TWICE DAILY WITH MEALS Active Levothyroxine Sodium 200 MCG Orally Once a day 1 tablet on an empty stomach in the morning 24h 30 days Active Tramadol HCl 50 mg Orally three times daily as needed 1 tablet 1 Nov, 2017 30 days Active Protonix 40 MG Orally Once a day 1 tablet 24h Not-Taking RESULTS No Results PROCEDURES No Known procedures [...] History Atrial Fibrillation January 2017 Hospitalization History [place] 09/30 Hospitalization History [facility] for lasix and blood products 08/09/17 Hospitalization History Blood/blood products 11/2017
--- OUTSIDE RECORDS SUMMARY | 2018-02-11 07:17 | XMS REPORT ---
Author Author JAMES TORRES [facility] Address [address] [place] [address] Care Team Providers Care Doctor Of Podiatric Medicine Name Role Phone JAMES TORRES Unavailable PROBLEMS Type Condition ICD9-CM Code [id number] Code Onset Dates Condition Status SNOMED Code Problem Acquired hypothyroidism E03.9 Active 613011341 Problem Angina pectoris syndrome I20.9 Active 311622719 Problem Persistent atrial fibrillation I48.1 Active 803832173 Problem 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 Active 252168846 Problem Non-insulin dependent type 2 diabetes mellitus E11.9 Active 16821054 Problem Coronary artery disease involving [place] coronary artery of [place] heart without angina pectoris I25.10 Active 3876802034401 Problem Essential hypertension I10 Active 62547457 Problem Congestive heart failure, unspecified HF chronicity, unspecified heart failure type I50.9 Active 99081621 Problem 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 Active 286022322 Problem Psoriasis L40.9 Active 6136288 Problem Microcytic anemia D50.9 Active 562338808 Problem Mixed hyperlipidemia E78.2 Active 926682355 Problem Reflux gastritis K29.60 Active 66294601 ALLERGIES Substance Reaction Event Type Date Status Cefadroxil nausea Drug Allergy October, Active ALL STATINS nausea Non Drug Allergy October, Active ENCOUNTERS Encounter Location Date Diagnosis [facility] [address] [facility] [id number] [address] Jan, [facility] [address] [id number] [address] Jan, [facility] [address] [id number] [address] Jan, Non-insulin treated type 2 diabetes mellitus E11.9 ; Essential hypertension I10 ; Microcytic anemia D50.9 ; Persistent atrial fibrillation I48.1 and BMI 40.0-44.9, adult Z68.41 [facility] [address] [address] Jan, [facility] [id number] [place] [address] 57690- 4556 Dec, [facility] [id number] [place] [address] 45581- 3703 Dec, Acquired hypothyroidism E03.9 [facility] [id number] [place] [address] 03299- 6378 Dec, [facility] [id number] [place] [address] 05305- 5843 Dec, [facility] [id number] [place] [address]37 -[address]87 Nov, Lower abdominal pain R10.30 and BMI 45.0-49.9, adult Z68.42 [facility] [id number] [place] [address] 36211- 0647 Nov, BMI 45.0-49.9, adult Z68.42 [facility] [id number] [place] [address] 88580- 3523 October, Congestive heart failure, unspecified HF chronicity, unspecified heart failure type I50.9 ; Acquired hypothyroidism E03.9 and BMI 45.0-49.9, adult Z68.42 [facility] [id number] [place] [address] 63424- 1302 October, Shortness of breath R06.02 [facility] [id number] [place] [address] 38889- 6438 October, [facility] [id number] [place] [address] 74191- 0594 October, [facility] [address] [place] [address] 15433- 7529 October, Essential hypertension I10 ; Coronary artery disease involving [place] coronary artery of [place] heart without angina pectoris I25.10 ; Angina pectoris syndrome I20.9 ; 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 and Persistent atrial fibrillation I48.1 [place] [address] [address]- 8[address] 18 Sep, 2017 Coronary artery disease involving [place] coronary artery of [place] heart without angina pectoris I25.10 [place] [address] [address]68- 5029 Sep, [facility] [address] 8[address]- 8440 Sep, Angina pectoris syndrome I20.9 ; Paroxysmal atrial fibrillation I48.0 ; Microcytic anemia D50.9 ; 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 and 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 [place] [address] [address]18- 3872 Aug, Non-insulin dependent type 2 diabetes mellitus E11.9 ; Microcytic anemia D50.9 ; Essential hypertension I10 and Acquired hypothyroidism E03.9 [place] [id number] [place] [address] 30346- 3015 Jul, [place] [id number] [place] [address] 27352- 6427 Jul, [place] [id number] [place] [address] 76058- 9975 Jun, [place] [id number] [place] [address] 33119- 4863 May, [place] [id number] [place] [address] 05413- 3815 May, History of anemia Z86.2 [place] [id number] [place] [address] 62348- 1465 May, [place] [id number] [place] [address] 86576- 8019 May, [place] [address] [place] [address] 4[address] May, Non-insulin treated type 2 diabetes mellitus E11.[address] [address]- 3883 Apr, Abdominal pain, left upper quadrant R10.12 ; Essential hypertension I10 ; Non-intractable cyclical vomiting with nausea G43.A0 ; Microcytic anemia D50.9 ; Mixed hyperlipidemia E78.2 and BMI 45.0-49.9, adult Z68.[address] [address]- 9938 Apr, [address] [address]687- 5642 Apr, Non-insulin treated type 2 diabetes mellitus E11.9 ; Essential hypertension I10 and Acquired hypothyroidism E03.[address] [address]- 2302 Mar, Encounter for immunization Z23 [address] [address]- 5631 Mar, [address] 73269- 1303 Feb, Microcytic anemia D50.9 ; Pain of left great toe M79.675 and Reflux gastritis K29.[address] 13372- 0889 Feb, Coronary artery disease involving [place] coronary artery of [place] heart without angina pectoris I25.10 and Acquired hypothyroidism E03.[address] 74457- 6787 Jan, Psoriasis L40.9 ; Paroxysmal atrial fibrillation I48.0 ; Shortness of breath R06.02 and Microcytic anemia D50.[address] 03039- 2225 Dec, [address] [address]- 2226 Dec, [facility] [address] [address] 2[address] Dec, Coronary artery disease involving [place] coronary artery of [place] heart without angina pectoris I25.10 [facility] [address] [address] Nov, Therapeutic drug monitoring Z51.81 ; Essential hypertension I10 ; Microcytic anemia D50.9 and Shortness of breath R06.02 [facility] [address] [address] 8263 Nov, Acquired hypothyroidism E03.9 [facility] [id number] [place] [address] 60003- 9035 October, [facility] [address] [place] [address] 60490- 9595 Sep, Coronary artery disease involving [place] coronary artery of [place] heart without angina pectoris I25.10 [facility] [address] [address] 9436 Aug, [facility] [address] [place] [address] 57182- 6565 Aug, Essential hypertension I10 [facility] [address] [address] 8086 Jul, Acquired hypothyroidism E03.9 ; Essential hypertension I10 ; Non-insulin treated type 2 diabetes mellitus E11.9 and Coronary artery disease involving [place] coronary artery of [place] heart without angina pectoris I25.10 [facility] [address] [address] 4[address] Jul, [facility] [address] [address] 7613 Jul, Angina pectoris syndrome I20.9 and Essential hypertension I10 [facility] [address] [place] [address] 12360- 7956 Jul, [facility] [address] [facility] [id number] [place] [address] Jun, [facility] [address] [facility] [id number] [place] [address] 09 May, 2016 Abscess L02.91 [facility] [address] [facility] [id number] [place] [address] 6[address] Apr, Non-insulin dependent type 2 diabetes mellitus E11.9 ; Essential hypertension I10 ; Acquired hypothyroidism E03.9 ; History of anemia Z86.2 and Coronary artery disease involving [place] coronary artery of [place] heart without angina pectoris I25.10 [facility] [address] [facility] [id number] [place] [address]- [address] 14 Apr, 2016 IMMUNIZATIONS No Known Immunizations SOCIAL HISTORY Never Assessed REASON FOR VISIT [facility] follow up, [place]----DBennettRN, medications verified with [facility] PLAN OF CARE Activity Details Follow Up 3 Months with Katie NUNEZ Reason: VITAL SIGNS Height 5'4" in 2017-10-14 Weight 278 lbs 2017-10-14 Temperature 98.6 degrees Fahrenheit 2017-10-14 Heart Rate 60 bpm 2017-10-14 Respiratory Rate 20 2017-10-14 BMI 47.71 kg/m2 2017-10-14 Blood pressure systolic 120 mmHg 2017-10-14 Blood pressure diastolic 72 mmHg 2017-10-14 MEDICATIONS Medication Instructions Dosage Frequency Start Date End Date Duration Status Levothyroxine Sodium 25 MCG Orally Once a day 1 tablet on an empty stomach in the morning 24h Active Metoprolol Succinate ER 100 mg Orally twice a day 1 tablet at bedtime 12h 06 Feb, 2017 Active Prilosec 40 mg Orally BID 1 capsule 12h Active Test strips GLUCOCARD EXPRESSION TEST STRIPS 12h 20 Aug, 2017 Active Promethazine HCl 25 MG TAKE ONE TABLET BY MOUTH EVERY 12 HOURS NEEDED 30 Active Tizanidine HCl 4 MG Orally Three times a day 1 tablet as needed 8h 13 Jul, 2017 Active Levothyroxine Sodium 200 MCG Orally Once a day 1 tablet on an empty stomach in the morning 24h Active Glucosamine 1500 Complex - Active Metformin HCl 1000 MG TAKE ONE TABLET BY MOUTH TWICE DAILY WITH MEALS Active Zetia 10 mg Orally Once a day 1 tablet 24h 10 Dec, 2016 Not-Taking Tramadol HCl 50 mg Orally three times daily as needed 1 tablet 1 Nov, 2017 30 days Active Glimepiride 1 MG Orally 2 times a day 2 12h Active Folic Acid 800 MCG Orally Once a day 1 tablet 24h Active Protonix 40 MG Orally Once a day 1 tablet 24h Not-Taking Metoprolol Succinate ER 50 mg Orally Once a day 1 tablet in am 24h Not-Taking Clobetasol Propionate 0.05 % Externally Twice a day, PRN 1 application to affected area Jan, Active Furosemide 20 mg Orally Once a day as needed 1 tablet Jan, 30 days Active Zofran 8 MG Orally Once a day 1 tablet 24h Apr, 30 day(s) Active RESULTS No Results PROCEDURES No Known [...] History Atrial Fibrillation January 2017 Hospitalization History [place] 09/30 Hospitalization History [facility] for lasix and blood products 08/09/17 Hospitalization History Blood/blood products 11/2017
--- OUTSIDE RECORDS SUMMARY | 2018-02-11 07:17 | XMS REPORT ---
Author Author JAMES TORRES [facility] Address [address] [place] [address] Care Team Providers Care Coach Builder Name Role Phone JAMES TORRES Unavailable PROBLEMS Type Condition ICD9-CM Code [id number] Code Onset Dates Condition Status SNOMED Code Problem Acquired hypothyroidism E03.9 Active 035205427 Problem Angina pectoris syndrome I20.9 Active 970087214 Problem Persistent atrial fibrillation I48.1 Active 552198574 Problem 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 Active 905078281 Problem Non-insulin dependent type 2 diabetes mellitus E11.9 Active 13669047 Problem Coronary artery disease involving [place] coronary artery of [place] heart without angina pectoris I25.10 Active 9840346706965 Problem Essential hypertension I10 Active 88826387 Problem Congestive heart failure, unspecified HF chronicity, unspecified heart failure type I50.9 Active 13892366 Problem 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 Active 886030863 Problem Psoriasis L40.9 Active 4032907 Problem Microcytic anemia D50.9 Active 390647182 Problem Mixed hyperlipidemia E78.2 Active 833264111 Problem Reflux gastritis K29.60 Active 89216702 ALLERGIES No Information ENCOUNTERS Encounter Location Date Diagnosis [place] [id number] [place] [address] 46170- 3091 Jan, [facility] [id number] [place] [address] 58255- 2166 Jan, [place] [address] [place] [id number] [place] [address]90- 2016 07 Jan, 2018 Non-insulin treated type 2 diabetes mellitus E11.9 ; Essential hypertension I10 ; Microcytic anemia D50.9 ; Persistent atrial fibrillation I48.1 and BMI 40.0-44.9, adult Z68.41 [place] [address] [place] [address] [id number] [place] [address] 57931- 5449 Jan, [facility] [address] [address]- 1568 Dec, [facility] [id number] [place] [address] 31547- 9960 Dec, Acquired hypothyroidism E03.9 [facility] [id number] [place] [address] 34473- 9664 Dec, [facility] [id number] [place] [address] 52661- 6719 Dec, [facility] [id number] [place] [address] 42445 -7601 Nov, Lower abdominal pain R10.30 and BMI 45.0-49.9, adult Z68.42 [place] [id number] [address]- 8465 Nov, BMI 45.0-49.9, adult Z68.42 [facility] [id number] [place] [address] 60372- 7247 October, Congestive heart failure, unspecified HF chronicity, unspecified heart failure type I50.9 ; Acquired hypothyroidism E03.9 and BMI 45.0-49.9, adult Z68.42 [facility] [address] [address]- 9124 October, Shortness of breath R06.02 [facility] [address] [place] [address] 33661- 6306 October, [facility] [id number] [place] [address] 99205- 2989 October, [place] [id number] [place] [address] 97004- 5926 October, Essential hypertension I10 ; Coronary artery disease involving [place] coronary artery of [place] heart without angina pectoris I25.10 ; Angina pectoris syndrome I20.9 ; 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 and Persistent atrial fibrillation I48.1 [facility] [id number] [place] [address] 32268- 2583 18 Sep, 2017 Coronary artery disease involving [place] coronary artery of [place] heart without angina pectoris I25.10 [facility] [id number] [place] [address] 59146- 4264 Sep, [place] [address] [place] [id number] [place] [address] 94970- 7517 Sep, Angina pectoris syndrome I20.9 ; Paroxysmal atrial fibrillation I48.0 ; Microcytic anemia D50.9 ; 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 and 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 [place] [address] [place] [address] [id number] [place] [address] 85939- 8814 Aug, Non-insulin dependent type 2 diabetes mellitus E11.9 ; Microcytic anemia D50.9 ; Essential hypertension I10 and Acquired hypothyroidism E03.9 [place] [address] [id number] [place] [address] 61538- 6090 Jul, [place] [address] [id number] [place] [address] 28703- 7344 Jul, [place] [address] [place] [address] [id number] [place] [address] 28939- 2167 Jun, [place] [address] [place] [address] [id number] [place] [address] 47316- 3456 May, [place] [address] [id number] [place] [address] 70196- 3020 May, History of anemia Z86.2 [place] [address] [id number] [place] [address] 81949- 2014 May, [place] [address] [place] [address] [id number] [place] [address] 28720- 2443 May, [facility] [id number] [place] [address] 11274- 6781 May, Non-insulin treated type 2 diabetes mellitus E11.[address] 21[address]- 0253 Apr, Abdominal pain, left upper quadrant R10.12 ; Essential hypertension I10 ; Non-intractable cyclical vomiting with nausea G43.A0 ; Microcytic anemia D50.9 ; Mixed hyperlipidemia E78.2 and BMI 45.0-49.9, adult Z68.[address] 99514- 5737 Apr, [address] 01480- 4209 Apr, Non-insulin treated type 2 diabetes mellitus E11.9 ; Essential hypertension I10 and Acquired hypothyroidism E03.[address] 50905- 0082 Mar, Encounter for immunization Z23 [address] 87773- 8624 Mar, [address] 28601- 4085 Feb, Microcytic anemia D50.9 ; Pain of left great toe M79.675 and Reflux gastritis K29.[address] 33874- 3709 Feb, Coronary artery disease involving [place] coronary artery of [place] heart without angina pectoris I25.10 and Acquired hypothyroidism E03.[address] 09517- 2340 Jan, Psoriasis L40.9 ; Paroxysmal atrial fibrillation I48.0 ; Shortness of breath R06.02 and Microcytic anemia D50.[address] 58111- 7752 Dec, [address] 21370- 6810 Dec, [address] [place] [address]- 7172 Dec, Coronary artery disease involving [place] coronary artery of [place] heart without angina pectoris I25.10 [facility] [id number] [place] [address] 38502- 8393 Nov, Therapeutic drug monitoring Z51.81 ; Essential hypertension I10 ; Microcytic anemia D50.9 and Shortness of breath R06.02 [place] [id number] [place] [address] 27667- 7555 Nov, Acquired hypothyroidism E03.9 [place] [address] [place] [address] [id number] [place] [address] 05404- 7247 October, [place] [address] [place] [id number] [place] [address] 23890- 3425 Sep, Coronary artery disease involving [place] coronary artery of [place] heart without angina pectoris I25.10 [place] [address] [id number] [place] [address] 29384- 5456 Aug, [facility] [id number] [place] [address] 49862- 5990 Aug, Essential hypertension I10 [place] [id number] [place] [address] 76476- 4771 Jul, Acquired hypothyroidism E03.9 ; Essential hypertension I10 ; Non-insulin treated type 2 diabetes mellitus E11.9 and Coronary artery disease involving [place] coronary artery of [place] heart without angina pectoris I25.10 [place] [address] [address]- 6649 Jul, [facility] [address] [place] [address] 33798- 5004 Jul, Angina pectoris syndrome I20.9 and Essential hypertension I10 [facility] [id number] [place] [address] 70101- 7456 Jul, [place] [address] [id number] [place] [address] 11622- 6923 Jun, [facility] [address] [facility] [id number] [place] [address] May, Abscess L02.91 [facility] [address] [facility] [id number] [place] [address]- 2316 Apr, Non-insulin dependent type 2 diabetes mellitus E11.9 ; Essential hypertension I10 ; Acquired hypothyroidism E03.9 ; History of anemia Z86.2 and Coronary artery disease involving [place] coronary artery of [place] heart without angina pectoris I25.10 [facility] [address] [facility] [id number] [place] [address]- 2205 14 Apr, 2016 IMMUNIZATIONS No Known Immunizations SOCIAL HISTORY Never Assessed REASON FOR VISIT edema, Pt here for f/u on edema. She is feeling much better. Leg swelling is decreased and she is down 13lbs since 11/10/17. Finishing her last day of 40mg lasix today. Will continue 20mg daily. PLAN OF CARE VITAL SIGNS Height 5'4" in 2017-11-13 Weight 272 lbs 2017-11-13 BMI 46.68 kg/m2 2017-11-13 Blood pressure systolic 140 mmHg 2017-11-13 Blood pressure diastolic 60 mmHg 2017-11-13 MEDICATIONS Unknown Medications RESULTS No Results PROCEDURES [...] History Atrial Fibrillation January 2017 Hospitalization History [place] 09/30 Hospitalization History [facility] for lasix and blood products 08/09/17 Hospitalization History Blood/blood products 11/2017
--- OUTSIDE RECORDS SUMMARY | 2018-02-11 07:18 | XMS REPORT ---
Author Author JAMES TORRES [facility] Address [address] [place] [address] Care Team Providers Care Laborer [employer] Name Role Phone JAMES TORRES Unavailable PROBLEMS Type Condition ICD9-CM Code URY97-IS Code Onset Dates Condition Status SNOMED Code Problem Acquired hypothyroidism E03.9 Active 701334590 Problem Angina pectoris syndrome I20.9 Active 081744817 Problem Persistent atrial fibrillation I48.1 Active 026446804 Problem 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 Active 374568272 Problem Non-insulin dependent type 2 diabetes mellitus E11.9 Active 58125378 Problem Coronary artery disease involving [place] coronary artery of [place] heart without angina pectoris I25.10 Active 1991366734287 Problem Essential hypertension I10 Active 47787449 Problem Congestive heart failure, unspecified HF chronicity, unspecified heart failure type I50.9 Active 41757822 Problem 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 Active 032772037 Problem Psoriasis L40.9 Active 7186856 Problem Microcytic anemia D50.9 Active 490975321 Problem Mixed hyperlipidemia E78.2 Active 590533266 Problem Reflux gastritis K29.60 Active 33254667 ALLERGIES No Information ENCOUNTERS Encounter Location Date Diagnosis [place] [id number] [place] [address] 82384- 6398 Jan, [facility] [id number] [place] [address] 96411- 2158 Jan, [place] [id number] [place] [address] 52860- 4749 07 Jan, 2018 Non-insulin treated type 2 diabetes mellitus E11.9 ; Essential hypertension I10 ; Microcytic anemia D50.9 ; Persistent atrial fibrillation I48.1 and BMI 40.0-44.9, adult Z68.41 [place] [id number] [place] [address] 11267- 9915 Jan, [facility] [address] [address] Dec, [facility] [id number] [place] [address] 15143- 3790 Dec, Acquired hypothyroidism E03.9 [facility] [id number] [place] [address] 94516- 8726 Dec, [facility] [id number] [place] [address] 02102- 0035 Dec, [facility] [id number] [place] [address] 77809 -3483 Nov, Lower abdominal pain R10.30 and BMI 45.0-49.9, adult Z68.42 [place] [id number] [address] 2196 Nov, BMI 45.0-49.9, adult Z68.42 [facility] [id number] [place] [address] 72133- 5031 October, Congestive heart failure, unspecified HF chronicity, unspecified heart failure type I50.9 ; Acquired hypothyroidism E03.9 and BMI 45.0-49.9, adult Z68.42 [facility] [address] [address] 8872 October, Shortness of breath R06.02 [facility] [address] [place] [address] 43291- 8442 October, [facility] [id number] [place] [address] 25247- 2128 October, [place] [id number] [place] [address] 36074- 7491 October, Essential hypertension I10 ; Coronary artery disease involving [place] coronary artery of [place] heart without angina pectoris I25.10 ; Angina pectoris syndrome I20.9 ; 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 and Persistent atrial fibrillation I48.1 [facility] [id number] [place] [address] 11221- 0477 18 Sep, 2017 Coronary artery disease involving [place] coronary artery of [place] heart without angina pectoris I25.10 [facility] [id number] [place] [address] 09180- 2438 Sep, [place] [id number] [place] [address] 77984- 0926 Sep, Angina pectoris syndrome I20.9 ; Paroxysmal atrial fibrillation I48.0 ; Microcytic anemia D50.9 ; 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 and 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 [place] [id number] [place] [address] 54833- 1379 Aug, Non-insulin dependent type 2 diabetes mellitus E11.9 ; Microcytic anemia D50.9 ; Essential hypertension I10 and Acquired hypothyroidism E03.9 [place] [id number] [place] [address] 15182- 2621 Jul, [place] [id number] [place] [address] 68432- 2065 Jul, [place] [id number] [place] [address] 27818- 0795 Jun, [place] [id number] [place] [address] 79751- 8839 May, [place] [id number] [place] [address] 87334- 7598 May, History of anemia Z86.2 [place] [id number] [place] [address] 88035- 1365 May, [place] [id number] [place] [address] 84523- 7830 May, [facility] [id number] [place] [address] 53314- 0536 May, Non-insulin treated type 2 diabetes mellitus E11.[address] 81529- 2260 Apr, Abdominal pain, left upper quadrant R10.12 ; Essential hypertension I10 ; Non-intractable cyclical vomiting with nausea G43.A0 ; Microcytic anemia D50.9 ; Mixed hyperlipidemia E78.2 and BMI 45.0-49.9, adult Z68.[address] 09862- 5863 Apr, [address] 86694- 2742 Apr, Non-insulin treated type 2 diabetes mellitus E11.9 ; Essential hypertension I10 and Acquired hypothyroidism E03.[address] 03254- 0486 Mar, Encounter for immunization Z23 [address] 80884- 0713 Mar, [address] 22005- 9149 Feb, Microcytic anemia D50.9 ; Pain of left great toe M79.675 and Reflux gastritis K29.[address] 55520- 3982 Feb, Coronary artery disease involving [place] coronary artery of [place] heart without angina pectoris I25.10 and Acquired hypothyroidism E03.[address] 10537- 1391 Jan, Psoriasis L40.9 ; Paroxysmal atrial fibrillation I48.0 ; Shortness of breath R06.02 and Microcytic anemia D50.[address] 26652- 9133 Dec, [address] 30583- 1159 Dec, [address] [place] [address] 5207 Dec, Coronary artery disease involving [place] coronary artery of [place] heart without angina pectoris I25.10 [facility] [id number] [place] [address] 59474- 6065 Nov, Therapeutic drug monitoring Z51.81 ; Essential hypertension I10 ; Microcytic anemia D50.9 and Shortness of breath R06.02 [place] [id number] [place] [address] 27199- 2548 Nov, Acquired hypothyroidism E03.9 [place] [id number] [place] [address] 87815- 0033 October, [place] [id number] [place] [address] 13795- 1185 Sep, Coronary artery disease involving [place] coronary artery of [place] heart without angina pectoris I25.10 [place] [id number] [place] [address] 97312- 2797 Aug, [facility] [id number] [place] [address] 23630- 2755 Aug, Essential hypertension I10 [place] [id number] [place] [address] 64736- 3068 Jul, Acquired hypothyroidism E03.9 ; Essential hypertension I10 ; Non-insulin treated type 2 diabetes mellitus E11.9 and Coronary artery disease involving [place] coronary artery of [place] heart without angina pectoris I25.10 [place] [address], [place] [address]- 2422 Jul, [facility] [address] [place] [address] 24589- 2933 Jul, Angina pectoris syndrome I20.9 and Essential hypertension I10 [facility] [id number] [place] [address] 93301- 9107 Jul, [place] [id number] [place] [address] 33277- 8111 Jun, [facility] [address] [facility] [id number] [place] [address] May, Abscess L02.91 [facility] [address] [facility] [id number] [address]- 3483 22 Apr, 2016 Non-insulin dependent type 2 diabetes mellitus E11.9 ; Essential hypertension I10 ; Acquired hypothyroidism E03.9 ; History of anemia Z86.2 and Coronary artery disease involving [place] coronary artery of [place] heart without angina pectoris I25.10 [facility] [address] [facility] [id number] [place] [address] 14 Apr, 2016 IMMUNIZATIONS No Known Immunizations SOCIAL HISTORY Never Assessed REASON FOR VISIT requesting return call PLAN OF CARE VITAL SIGNS MEDICATIONS [...] History Atrial Fibrillation January 2017 Hospitalization History [place] 09/30 Hospitalization History [facility] for lasix and blood products 08/09/17 Hospitalization History Blood/blood products 11/2017
--- OUTSIDE RECORDS SUMMARY | 2018-02-11 07:18 | XMS REPORT ---
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 Active 199472179 Problem Non-intractable cyclical vomiting with nausea G43.A0 Active 18672718 Problem Reflux gastritis K29.60 Active 97498522 Problem Non-insulin treated type 2 diabetes mellitus E11.9 Active 693372498 Problem Mixed hyperlipidemia E78.2 Active 727254741 Problem 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 Active 801766862 Problem Non-insulin dependent type 2 diabetes mellitus E11.9 Active 37121816 Problem Coronary artery disease involving [place] coronary artery of [place] heart without angina pectoris I25.10 Active 5507748876143 Problem Essential hypertension I10 Active 71819824 Problem History of anemia Z86.2 Active 482376375 Problem Angina pectoris syndrome I20.9 Active 183169339 Problem Acquired hypothyroidism E03.9 Active 084770937 Problem Persistent atrial fibrillation I48.1 Active 188673655 ALLERGIES No Information ENCOUNTERS Encounter Location Date Diagnosis [facility] [id number], [place] [address]- 7392 Jan, [facility] [address], [place] [address]- 8202 Jan, [facility] [id number], [place] [address]- 7843 Dec, [facility] [id number], [place] [address]- 9705 Dec, Acquired hypothyroidism E03.9 [facility] [id number] [place] [address] 94418- 7488 Dec, [facility] [id number] [place] [address] 90869- 5539 Dec, [facility] [id number] [place] [address] 03130 -0528 Nov, Lower abdominal pain R10.30 and BMI 45.0-49.9, adult Z68.42 [place] [address] 07368- 8021 Nov, BMI 45.0-49.9, adult Z68.42 [facility] [id number] [place] [address] 28667- 7606 October, Congestive heart failure, unspecified HF chronicity, unspecified heart failure type I50.9 ; Acquired hypothyroidism E03.9 and BMI 45.0-49.9, adult Z68.42 [facility] [id number] [place] [address] 18329- 5203 October, Shortness of breath R06.02 [facility] [id number] [place] [address] 98188- 5877 October, [place] [id number] [place] [address] 45244- 4690 October, [facility] [id number] [place] [address] 16688- 7401 October, Essential hypertension I10 ; Coronary artery disease involving [place] coronary artery of [place] heart without angina pectoris I25.10 ; Angina pectoris syndrome I20.9 ; 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 and Persistent atrial fibrillation I48.1 [facility] [address] [place] [address] 10653- 1942 Sep, Coronary artery disease involving [place] coronary artery of [place] heart without angina pectoris I25.10 [place] [id number] [place] [address] 92127- 8911 Sep, [place] [address] [id number] [place] [address] 51132- 9955 Sep, Angina pectoris syndrome I20.9 ; Paroxysmal atrial fibrillation I48.0 ; Microcytic anemia D50.9 ; 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 and 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 [place] [address] 61203- 5972 Aug, Non-insulin dependent type 2 diabetes mellitus E11.9 ; Microcytic anemia D50.9 ; Essential hypertension I10 and Acquired hypothyroidism E03.9 [place] [id number] [place] [address] 64432- 7224 Jul, [place] [address] 98478- 7922 Jul, [place] [id number] [place] [address] 06332- 1020 Jun, [place] [id number] [place] [address] 63878- 5674 May, [place] [id number] [place] [address] 03990- 7543 May, History of anemia Z86.2 [place] [id number] [place] [address] 49761- 4181 May, [place] [id number] [place] [address] 17955- 8807 May, [place] [id number] [place] [address] 54317- 9777 May, Non-insulin treated type 2 diabetes mellitus E11.9 [place] [id number] [place] [address] 38325- 4689 Apr, Abdominal pain, left upper quadrant R10.12 ; Essential hypertension I10 ; Non-intractable cyclical vomiting with nausea G43.A0 ; Microcytic anemia D50.9 ; Mixed hyperlipidemia E78.2 and BMI 45.0-49.9, adult Z68.42 [place] [address] 15745- 1076 Apr, [place] [address] 08203- 9373 Apr, Acquired hypothyroidism E03.9 ; Essential hypertension I10 and Non-insulin treated type 2 diabetes mellitus E11.9 [place] [address] 05290- 3185 Mar, Encounter for immunization Z23 [address] 24137- 9721 Mar, [address] 82256- 5138 Feb, Microcytic anemia D50.9 ; Pain of left great toe M79.675 and Reflux gastritis K29.60 [place] [address] 21171- 9014 Feb, Coronary artery disease involving [place] coronary artery of [place] heart without angina pectoris I25.10 and Acquired hypothyroidism E03.[address] 27289- 6777 Jan, Psoriasis L40.9 ; Paroxysmal atrial fibrillation I48.0 ; Shortness of breath R06.02 and Microcytic anemia D50.9 [place] [id number] [place] [address] 62826- 9338 Dec, [place] [address] 47268- 0139 Dec, [place] [address] 14555- 1789 Dec, Coronary artery disease involving [place] coronary artery of [place] heart without angina pectoris I25.[address] [place] [address]- 3887 Nov, Therapeutic drug monitoring Z51.81 ; Essential hypertension I10 ; Microcytic anemia D50.9 and Shortness of breath R06.02 [facility] [id number] [place] [address] 01906- 0389 Nov, Acquired hypothyroidism E03.9 [facility] [id number] [place] [address] 97205- 3368 October, [facility] [address] 77261- 5883 Sep, Coronary artery disease involving [place] coronary artery of [place] heart without angina pectoris I25.10 [place] [address] 17042- 7092 Aug, [place] [id number] [place] [address] 41574- 5549 Aug, Essential hypertension I10 [facility] [id number] [place] [address] 18120- 7552 Jul, Acquired hypothyroidism E03.9 ; Essential hypertension I10 ; Non-insulin treated type 2 diabetes mellitus E11.9 and Coronary artery disease involving [place] coronary artery of [place] heart without angina pectoris I25.10 [place] [address] [place] [address] 33846- 5432 Jul, [facility] [id number] [place] [address] 15212- 9449 Jul, Angina pectoris syndrome I20.9 and Essential hypertension I10 [facility] [id number] [place] [address] 13776- 1476 Jul, [facility] [id number] [place] [address] 52375- 9871 Jun, [facility] [address] [place] [address] 18251 -6872 May, Abscess L02.91 [facility] [id number] [address]- 7767 22 Apr, 2016 Non-insulin dependent type 2 diabetes mellitus E11.9 ; Essential hypertension I10 ; Acquired hypothyroidism E03.9 ; History of anemia Z86.2 and Coronary artery disease involving [place] coronary artery of [place] heart without angina pectoris I25.10 [facility] [address] [facility] [id number] [place] [address]- 9052 14 Apr, 2016 IMMUNIZATIONS No Known Immunizations SOCIAL HISTORY Never Assessed REASON FOR VISIT referral PLAN OF CARE VITAL SIGNS MEDICATIONS Unknown [...] History Atrial Fibrillation January 2017 Hospitalization History [place] 09/30 Hospitalization History [facility] for lasix and blood products 08/09/17 Hospitalization History Blood/blood products 11/2017
--- OUTSIDE RECORDS SUMMARY | 2018-02-11 07:18 | XMS REPORT ---
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 Active 3949139960836 Problem Essential hypertension I10 Active 70319393 Problem Congestive heart failure, unspecified HF chronicity, unspecified heart failure type I50.9 Active 81123889 Problem 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 Active 901565883 Problem Psoriasis L40.9 Active 7424942 Problem Microcytic anemia D50.9 Active 586506930 Problem Mixed hyperlipidemia E78.2 Active 113063182 Problem Reflux gastritis K29.60 Active 27739358 ALLERGIES Substance Reaction Event Type Date Status Cefadroxil nausea Drug Allergy Apr, Active ALL STATINS nausea Non Drug Allergy Apr, Active ENCOUNTERS Encounter Location Date Diagnosis [facility] [id number] [place] [address] 83315- 7954 Jan, Non-insulin treated type 2 diabetes mellitus E11.9 ; Essential hypertension I10 ; Microcytic anemia D50.9 ; Persistent atrial fibrillation I48.1 and BMI 40.0-44.9, adult Z68.41 [facility] [id number] [address] Jan, [facility] [address] [address] Dec, [facility] [address] [place] [address] 54691- 0688 Dec, Acquired hypothyroidism E03.9 [facility] [id number] [place] [address] 92592- 8213 Dec, [facility] [id number] [place] [address] 93189- 7301 Dec, [facility] [id number] [place] [address] 57532 -1318 Nov, Lower abdominal pain R10.30 and BMI 45.0-49.9, adult Z68.42 [place] [id number] [place] [address] 33359- 2370 Nov, BMI 45.0-49.9, adult Z68.42 [place] [id number] [place] [address] 00050- 9505 October, Congestive heart failure, unspecified HF chronicity, unspecified heart failure type I50.9 ; Acquired hypothyroidism E03.9 and BMI 45.0-49.9, adult Z68.42 [facility] [id number] [place] [address] 34352- 5367 October, Shortness of breath R06.02 [facility] [id number] [place] [address] 81983- 2696 October, [facility] [id number] [place] [address] 51625- 6477 October, [facility] [id number] [place] [address] 68906- 6120 October, Essential hypertension I10 ; 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 ; Angina pectoris syndrome I20.9 ; 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 and Persistent atrial fibrillation I48.1 [place] [id number] [place] [address] 32158- 7705 Sep, 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 [facility] [id number] [place] [address] 33257- 1189 Sep, [facility] [id number] [place] [address] 93296- 4366 Sep, Angina pectoris syndrome I20.9 ; Paroxysmal atrial fibrillation I48.0 ; Microcytic anemia D50.9 ; 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 and 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 [facility] [id number] [place] [address] 98752- 4448 Aug, Non-insulin dependent type 2 diabetes mellitus E11.9 ; Microcytic anemia D50.9 ; Essential hypertension I10 and Acquired hypothyroidism E03.9 [place] [id number] [place] [address] 94813- 9280 Jul, [facility] [address] 34328- 4556 Jul, [facility] [id number] [place] [address] 49583- 3411 Jun, [facility] [id number] [place] [address] 29701- 7615 May, [facility] [id number] [place] [address] 73917- 7654 May, History of anemia Z86.2 [facility] [id number] [place] [address] 10769- 5570 May, [facility] [id number] [place] [address] 17458- 4521 May, [facility] [id number] [place] [address] 74282- 8664 May, Non-insulin treated type 2 diabetes mellitus E11.9 [facility] [id number] [place] [address] 53957- 2284 Apr, Abdominal pain, left upper quadrant R10.12 ; Essential hypertension I10 ; Non-intractable cyclical vomiting with nausea G43.A0 ; Microcytic anemia D50.9 ; Mixed hyperlipidemia E78.2 and BMI 45.0-49.9, adult Z68.42 [place] [id number] [place] [address] 91845- 9662 Apr, [address] 00658- 6708 Apr, Non-insulin treated type 2 diabetes mellitus E11.9 ; Essential hypertension I10 and Acquired hypothyroidism E03.[address] 00439- 3419 Mar, Encounter for immunization Z23 [address] 46254- 8371 Mar, [address] 36848- 8620 Feb, Microcytic anemia D50.9 ; Pain of left great toe M79.675 and Reflux gastritis K29.[address] 81001- 0695 Feb, 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 and Acquired hypothyroidism E03.9 [place] [id number] [place] [address] 69044- 6399 Jan, Psoriasis L40.9 ; Paroxysmal atrial fibrillation I48.0 ; Shortness of breath R06.02 and Microcytic anemia D50.9 [place] [id number] [place] [address] 28932- 9656 Dec, [address] 44131- 9702 Dec, [place] [address] 93075- 8516 Dec, 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 [facility] [address] [address] 46[address] 15 Nov, 2016 Therapeutic drug monitoring Z51.81 ; Essential hypertension I10 ; Microcytic anemia D50.9 and Shortness of breath R06.02 [facility] [address], [place] [address] 5[address] 07 Nov, 2016 Acquired hypothyroidism E03.9 [facility] [id number] [place] [address] 32900- 6417 October, [facility] [id number] [place] [address] 99083- 6450 Sep, 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 [place] [id number] [place] [address] 07946- 5090 17 Aug, 2016 [place] [id number] [place] [address] 62353- 6456 Aug, Essential hypertension I10 [facility] [id number] [place] [address] 83086- 0317 Jul, Acquired hypothyroidism E03.9 ; Essential hypertension I10 ; Non-insulin treated type 2 diabetes mellitus E11.9 and 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 [facility] [address], [place] [address]- 5091 Jul, [facility] [id number] [place] [address] 96058- 3280 Jul, Angina pectoris syndrome I20.9 and Essential hypertension I10 [place] [address] [place] [address] 07529- 4226 Jul, [facility] [address], [place] [address]- 4314 Jun, [facility] [address] [place] [address] 43708 -0843 May, Abscess L02.91 [facility] [address] [facility] [id number] [address]- 2889 Apr, Non-insulin dependent type 2 diabetes mellitus E11.9 ; Essential hypertension I10 ; Acquired hypothyroidism E03.9 ; History of anemia Z86.2 and 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 [facility] [address] [facility] [id number] [address] 14 Apr, 2016 IMMUNIZATIONS No Known Immunizations SOCIAL HISTORY Never Assessed REASON FOR VISIT HTN--CarleyleachMA, Shortness of breath, dry mouth , Experiencing dull pain in the left upper abdomen PLAN OF CARE Activity Details Follow Up 2 Months with Katie NUNEZ Reason: VITAL SIGNS Height 5'4" in 2017-05-14 Weight 264 lbs 2017-05-14 Temperature 98.3 degrees Fahrenheit 2017-05-14 Heart Rate 80 bpm 2017-05-14 Respiratory Rate 20 2017-05-14 BMI 45.31 kg/m2 2017-05-14 Blood pressure systolic 150 mmHg 2017-05-14 Blood pressure diastolic 68 mmHg 2017-05-14 MEDICATIONS Medication Instructions Dosage Frequency Start Date End Date Duration Status Furosemide 20 mg Orally Once a day as needed 1 tablet Jan, 45 days Active Metoprolol Succinate ER 100 mg Orally Once a day 1 tablet at bedtime 24h 06 Feb, 2017 90 days Active Glimepiride 2 MG Orally 2 times a day 1 12h Active Metoprolol Succinate ER 50 mg Orally Once a day 1 tablet in am 24h Active Metformin HCl 1000 MG Orally Twice a day 1 tablet with meals 12h 30 Active Zofran 8 MG Orally Once a day 1 tablet 24h 30 Apr, 2017 30 day(s) Active Protonix 40 MG Orally Once a day 1 tablet 24h Active Levothyroxine Sodium 150 MCG Orally Once a day 1 tablet on an empty stomach in the morning 24h Active Folic Acid 800 MCG Orally Once a day 1 tablet 24h Active Tramadol HCl 50 mg Orally three times daily as needed 1 tablet Active Zetia 10 mg Orally Once a day 1 tablet 24h 10 Dec, 2016 Not-Taking Clobetasol Propionate 0.05 % Externally Twice a day, PRN 1 application to affected area Jan, Active Glucosamine 1500 Complex - Active Carafate 1 GM Orally 4 times daily 1 tablet Apr, Aug, 30 day(s) Active RESULTS No Results PROCEDURES [...] History Atrial Fibrillation January 2017 Hospitalization History [place] 09/30 Hospitalization History [facility] for lasix and blood products 08/09/17 Hospitalization History Blood/blood products 11/2017
--- OUTSIDE RECORDS SUMMARY | 2018-02-11 07:18 | XMS REPORT ---
Author Author JAMES TORRSE [facility] Address [address] [place] [address] Care Team Providers Care Pen Maker Name Role Phone JAMES TORRES Unavailable PROBLEMS Type Condition ICD9-CM Code BHR53-HA Code Onset Dates Condition Status SNOMED Code Problem Acquired hypothyroidism E03.9 Active 633509734 Problem Angina pectoris syndrome I20.9 Active 074996657 Problem Persistent atrial fibrillation I48.1 Active 789610678 Problem 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 Active 192549355 Problem Non-insulin dependent type 2 diabetes mellitus E11.9 Active 42683522 Problem Coronary artery disease involving [place] coronary artery of [place] heart without angina pectoris I25.10 Active 1033683365544 Problem Essential hypertension I10 Active 73868679 Problem Congestive heart failure, unspecified HF chronicity, unspecified heart failure type I50.9 Active 45173410 Problem 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 [address] [place] [address] 90078- 9121 Jan, Non-insulin treated type 2 diabetes mellitus E11.9 ; Essential hypertension I10 ; Microcytic anemia D50.9 ; Persistent atrial fibrillation I48.1 and BMI 40.0-44.[address], [address] [facility] [id number] [place] [address] 17674- 8699 Jan, [facility] [id number] [place] [address] 18923- 9639 Dec, [facility] [id number] [place] [address] 89472- 0418 Dec, Acquired hypothyroidism E03.9 [facility] [address] [address]- 4731 Dec, [facility] [id number] [place] [address] 84264- 7110 Dec, [facility] [id number] [place] [address] 29894 -8371 Nov, Lower abdominal pain R10.30 and BMI 45.0-49.9, adult Z68.42 [facility] [id number] [place] [address] 91229- 8578 Nov, BMI 45.0-49.9, adult Z68.42 [place] [id number] [place] [address] 57586- 8093 October, Congestive heart failure, unspecified HF chronicity, unspecified heart failure type I50.9 ; Acquired hypothyroidism E03.9 and BMI 45.0-49.9, adult Z68.42 [facility] [id number] [place] [address] 81064- 2513 October, Shortness of breath R06.02 [facility] [id number] [place] [address] 09127- 0415 October, [place] [id number] [place] [address] 82157- 3322 October, 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 [place] [id number] [place] [address] 43345- 1496 Aug, Non-insulin dependent type 2 diabetes mellitus E11.9 ; Microcytic anemia D50.9 ; Essential hypertension I10 and Acquired hypothyroidism E03.9 [place] [id number] [place] [address] 49009- 5741 Jul, [place] [id number] [place] [address] 72718- 9875 Jul, [place] [id number] [place] [address] 08135- 1900 Jun, [place] [id number] [place] [address] 58444- 8666 May, [place] [id number] [place] [address] 50248- 5849 May, History of anemia Z86.2 [place] [id number] [place] [address] 63460- 1237 May, [place] [id number] [place] [address] 81525- 4696 May, [place] [id number] [place] [address] 52039- 9059 May, Non-insulin treated type 2 diabetes mellitus E11.9 [place] [address] [place] [address] 62665- 3129 Apr, Abdominal pain, left upper quadrant R10.12 ; Essential hypertension I10 ; Non-intractable cyclical vomiting with nausea G43.A0 ; Microcytic anemia D50.9 ; Mixed hyperlipidemia E78.2 and BMI 45.0-49.9, adult Z68.[address] 77395- 9590 Apr, [address] 33211- 1088 Apr, Acquired hypothyroidism E03.9 ; Essential hypertension I10 and Non-insulin treated type 2 diabetes mellitus E11.[address] 95755- 9132 Mar, Encounter for immunization Z23 [address] 41424- 5426 Mar, [address] 69478- 7351 Feb, Microcytic anemia D50.9 ; Pain of left great toe M79.675 and Reflux gastritis K29.60 [id number] [place] [address] 55822- 8577 Feb, Coronary artery disease involving [place] coronary artery of [place] heart without angina pectoris I25.10 and Acquired hypothyroidism E03.9 [place] [id number] [place] [address] 34767- 3538 Jan, Psoriasis L40.9 ; Paroxysmal atrial fibrillation I48.0 ; Shortness of breath R06.02 and Microcytic anemia D50.9 [place] [id number] [place] [address] 81143- 1904 Dec, [address] 91060- 8621 Dec, [address] 73829- 7179 Dec, Coronary artery disease involving [place] coronary artery of [place] heart without angina pectoris I25.[address] 80580- 1116 Nov, Therapeutic drug monitoring Z51.81 ; Essential hypertension I10 ; Microcytic anemia D50.9 and Shortness of breath R06.02 [facility] [id number] [place] [address] 71475- 1874 Nov, Acquired hypothyroidism E03.9 [facility] [id number] [place] [address] 44806- 4836 October, [facility] [address] 37831- 3172 Sep, Coronary artery disease involving [place] coronary artery of [place] heart without angina pectoris I25.10 [place] [address] 62514- 9527 Aug, [place] [id number] [place] [address] 03140- 3458 Aug, Essential hypertension I10 [facility] [id number] [place] [address] 85676- 8465 Jul, Acquired hypothyroidism E03.9 ; Essential hypertension I10 ; Non-insulin treated type 2 diabetes mellitus E11.9 and Coronary artery disease involving [place] coronary artery of [place] heart without angina pectoris I25.10 [place] [id number] [place] [address] 50353- 9990 Jul, [facility] [id number] [place] [address] 55376- 8633 Jul, Angina pectoris syndrome I20.9 and Essential hypertension I10 [facility] [id number] [place] [address] 00587- 1796 Jul, [facility] [id number] [place] [address] 41119- 5395 Jun, [facility] [id number] [place] [address] 52399 -6180 May, [address] [facility] [address] 70653- 6067 Apr, Non-insulin dependent type 2 diabetes mellitus E11.9 ; Essential hypertension I10 ; Acquired hypothyroidism E03.9 ; History of anemia Z86.2 and Coronary artery disease involving [place] coronary artery of [place] heart without angina pectoris I25.10 [facility] [address] [facility] [id number] [place] [address]- 9720 Apr, IMMUNIZATIONS No Known Immunizations SOCIAL HISTORY Never Assessed REASON FOR VISIT Medication question PLAN OF CARE VITAL SIGNS MEDICATIONS Medication Instructions Dosage Frequency Start Date End Date Duration Status Folic Acid 800 MCG Orally Once a day 1 tablet 24h 13 Apr, 2018 90 days Active Levothyroxine Sodium 25 MCG Orally Once a day 1 tablet on an empty stomach in the morning 24h 90 days Active Prilosec 40 mg Orally BID 1 capsule 12h 90 days Active RESULTS No Results PROCEDURES [...] History Atrial Fibrillation January 2017 Hospitalization History [place] 09/30 Hospitalization History [facility] for lasix and blood products 08/09/17 Hospitalization History Blood/blood products 11/2017
--- OUTSIDE RECORDS SUMMARY | 2018-02-11 07:19 | XMS REPORT ---
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 Active 365414202 Problem Non-intractable cyclical vomiting with nausea G43.A0 Active 56235358 Problem Reflux gastritis K29.60 Active 65568247 Problem Non-insulin treated type 2 diabetes mellitus E11.9 Active 485689011 Problem Mixed hyperlipidemia E78.2 Active 348538787 Problem 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 Active 242122820 Problem Non-insulin dependent type 2 diabetes mellitus E11.9 Active 32470714 Problem Coronary artery disease involving [place] coronary artery of [place] heart without angina pectoris I25.10 Active 8425110950737 Problem Essential hypertension I10 Active 44269104 Problem History of anemia Z86.2 Active 965276718 Problem Angina pectoris syndrome I20.9 Active 371678256 Problem Acquired hypothyroidism E03.9 Active 908919428 Problem Persistent atrial fibrillation I48.1 Active 817715863 ALLERGIES No Information ENCOUNTERS Encounter Location Date Diagnosis [facility] [address] [facility] [id number] [address] Jan, [facility] [address] [id number], [place] [address] Dec, [facility] [address] [id number], [place] [address] Dec, Acquired hypothyroidism E03.9 [facility] [address], [place] [address] Dec, [facility] [id number] [place] [address] 28018- 6412 Dec, [facility] [address] [place] [address] 53152 -3398 Nov, Lower abdominal pain R10.30 and BMI 45.0-49.9, adult Z68.42 [facility] [id number] [place] [address] 37539- 1838 Nov, BMI 45.0-49.9, adult Z68.42 [place] [id number] [place] [address] 39793- 8152 October, Congestive heart failure, unspecified HF chronicity, unspecified heart failure type I50.9 ; Acquired hypothyroidism E03.9 and BMI 45.0-49.9, adult Z68.42 [facility] [id number] [place] [address] 74501- 1188 October, Shortness of breath R06.02 [place] [id number] [place] [address] 35106- 9106 October, [place] [id number] [place] [address] 83793- 1360 October, [place] [id number] [place] [address] 36563- 1209 October, Essential hypertension I10 ; Coronary artery disease involving [place] coronary artery of [place] heart without angina pectoris I25.10 ; Angina pectoris syndrome I20.9 ; 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 and Persistent atrial fibrillation I48.1 [place] [id number] [place] [address] 86034- 5724 Sep, Coronary artery disease involving [place] coronary artery of [place] heart without angina pectoris I25.10 [place] [id number] [place] [address] 75611- 0192 Sep, [place] [id number] [place] [address] 49230- 4682 Sep, Angina pectoris syndrome I20.9 ; Paroxysmal atrial fibrillation I48.0 ; Microcytic anemia D50.9 ; 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 and 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 [place] [id number] [place] [address] 98837- 9128 Aug, Non-insulin dependent type 2 diabetes mellitus E11.9 ; Microcytic anemia D50.9 ; Essential hypertension I10 and Acquired hypothyroidism E03.9 [place] [id number] [place] [address] 58593- 6280 Jul, [place] [address] [address]30- 6835 Jul, [place] [id number] [place] [address] 54581- 6985 Jun, [place] [id number] [place] [address] 49799- 8915 May, [place] [address] 75777- 0398 May, History of anemia Z86.2 [place] [id number] [place] [address] 44567- 8111 May, [place] [id number] [place] [address] 82889- 0485 May, [place] [id number] [place] [address] 09213- 1266 May, Non-insulin treated type 2 diabetes mellitus E11.9 [place] [id number] [place] [address] 87755- 6806 Apr, Abdominal pain, left upper quadrant R10.12 ; Essential hypertension I10 ; Non-intractable cyclical vomiting with nausea G43.A0 ; Microcytic anemia D50.9 ; Mixed hyperlipidemia E78.2 and BMI 45.0-49.9, adult Z68.42 [place] [address] 84879- 6907 Apr, [address] 63097- 3455 Apr, Non-insulin treated type 2 diabetes mellitus E11.9 ; Essential hypertension I10 and Acquired hypothyroidism E03.[address] 83743- 7947 Mar, Encounter for immunization Z23 [address] 41363- 7651 Mar, [address] 89503- 3697 Feb, Microcytic anemia D50.9 ; Pain of left great toe M79.675 and Reflux gastritis K29.[address] 46591- 1069 Feb, Coronary artery disease involving [place] coronary artery of [place] heart without angina pectoris I25.10 and Acquired hypothyroidism E03.[address] 18988- 8608 Jan, Psoriasis L40.9 ; Paroxysmal atrial fibrillation I48.0 ; Shortness of breath R06.02 and Microcytic anemia D50.9 [address] [id number] [place] [address] 63096- 8068 Dec, [address] 73031- 0473 Dec, [address] 48170- 4041 Dec, Coronary artery disease involving [place] coronary artery of [place] heart without angina pectoris I25.[address] 94893- 5772 Nov, Therapeutic drug monitoring Z51.81 ; Essential hypertension I10 ; Microcytic anemia D50.9 and Shortness of breath R06.02 [facility] [address] [place] [address] 05969- 3241 Nov, Acquired hypothyroidism E03.9 [facility] [id number] [place] [address] 88932- 4873 October, [facility] [id number] [place] [address] 13237- 7648 Sep, Coronary artery disease involving [place] coronary artery of [place] heart without angina pectoris I25.10 [facility] [id number] [place] [address] 92920- 2059 Aug, [place] [address] 40881- 1291 Aug, Essential hypertension I10 [place] [id number] [place] [address] 01001- 1619 20 Jul, 2016 Acquired hypothyroidism E03.9 ; Essential hypertension I10 ; Non-insulin treated type 2 diabetes mellitus E11.9 and Coronary artery disease involving [place] coronary artery of [place] heart without angina pectoris I25.10 [place] [id number] [place] [address] 50135- 7525 Jul, [facility] [id number] [place] [address] 87317- 4457 Jul, Angina pectoris syndrome I20.9 and Essential hypertension I10 [facility] [id number] [place] [address] 91394- 7459 Jul, [facility] [id number] [place] [address] 36613- 3297 Jun, [facility] [id number] [place] [address] 29373 -8793 May, Abscess L02.91 [facility] [id number] [place] [address] 28359- 8376 Apr, Non-insulin dependent type 2 diabetes mellitus E11.9 ; Essential hypertension I10 ; Acquired hypothyroidism E03.9 ; History of anemia Z86.2 and Coronary artery disease involving [place] coronary artery of [place] heart without angina pectoris I25.10 [facility] [address] [facility] [id number] [place] [address] Apr, IMMUNIZATIONS No Known Immunizations SOCIAL HISTORY Never Assessed REASON FOR VISIT Repository Medication PLAN OF CARE VITAL SIGNS MEDICATIONS Medication Instructions Dosage Frequency Start Date End Date Duration Status Metoprolol Succinate ER 50 mg Orally Once a day 1 tablet in am 24h Active Metoprolol Succinate ER 100 mg Orally Once a day 1 tablet at bedtime 24h Feb, Active RESULTS No Results PROCEDURES No Known [...] History Atrial Fibrillation January 2017 Hospitalization History [place] 09/30 Hospitalization History [facility] for lasix and blood products 08/09/17 Hospitalization History Blood/blood products 11/2017
--- OUTSIDE RECORDS SUMMARY | 2018-02-11 07:19 | XMS REPORT ---
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 Active 718135692 Problem Non-intractable cyclical vomiting with nausea G43.A0 Active 87161626 Problem Reflux gastritis K29.60 Active 30777468 Problem Non-insulin treated type 2 diabetes mellitus E11.9 Active 554730252 Problem Mixed hyperlipidemia E78.2 Active 542754134 Problem 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 Active 004933070 Problem Non-insulin dependent type 2 diabetes mellitus E11.9 Active 99516525 Problem Coronary artery disease involving [place] coronary artery of [place] heart without angina pectoris I25.10 Active 7145730914558 Problem Essential hypertension I10 Active 11375314 Problem History of anemia Z86.2 Active 041319268 Problem Angina pectoris syndrome I20.9 Active 438184584 Problem Acquired hypothyroidism E03.9 Active 849075578 Problem Persistent atrial fibrillation I48.1 Active 979133784 ALLERGIES Substance Reaction Event Type Date Status Cefadroxil nausea Drug Allergy Aug, Active ALL STATINS nausea Non Drug Allergy Aug, Active ENCOUNTERS Encounter Location Date Diagnosis [facility] [address] [facility] [id number], [place] [address] Jan, [facility] [address] [facility] [id number] [place] [address] 9493 Dec, [facility] [address], [place] [address]- 2569 Dec, [facility] [address] [place] [address] 12743 -3692 Nov, Lower abdominal pain R10.30 and BMI 45.0-49.9, adult Z68.42 [facility] [id number] [place] [address] 58570- 7545 Nov, BMI 45.0-49.9, adult Z68.42 [facility] [id number] [place] [address] 37941- 8070 October, Congestive heart failure, unspecified HF chronicity, unspecified heart failure type I50.9 ; Acquired hypothyroidism E03.9 and BMI 45.0-49.9, adult Z68.42 [facility] [id number] [place] [address] 75387- 6456 October, Shortness of breath R06.02 [facility] [id number] [place] [address] 68616- 7779 October, [place] [id number] [place] [address] 10357- 6926 October, [facility] [id number] [place] [address] 06823- 9887 October, Essential hypertension I10 ; Coronary artery disease involving [place] coronary artery of [place] heart without angina pectoris I25.10 ; Angina pectoris syndrome I20.9 ; 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 and Persistent atrial fibrillation I48.1 [facility] [address] [place] [address] 66531- 4912 Sep, Coronary artery disease involving [place] coronary artery of [place] heart without angina pectoris I25.10 [facility] [address] [place] [address] 25826- 7375 Sep, [facility] [address] [place] [address] 40587- 2702 Sep, Angina pectoris syndrome I20.9 ; Paroxysmal atrial fibrillation I48.0 ; Microcytic anemia D50.9 ; 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 and 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 [place] [id number] [place] [address] 65583- 7554 Aug, Non-insulin dependent type 2 diabetes mellitus E11.9 ; Microcytic anemia D50.9 ; Essential hypertension I10 and Acquired hypothyroidism E03.9 [place] [id number] [place] [address] 40909- 8260 Jul, [place] [id number] [place] [address] 20164- 6929 Jul, [place] [address] 17607- 9842 Jun, [place] [id number] [place] [address] 14381- 2930 May, [place] [address] 62824- 9351 May, History of anemia Z86.2 [place] [id number] [place] [address] 22484- 9110 May, [place] [id number] [place] [address] 00108- 8154 May, [place] [id number] [place] [address] 61428- 2781 May, Non-insulin treated type 2 diabetes mellitus E11.9 [place] [id number] [place] [address] 67228- 2326 Apr, Abdominal pain, left upper quadrant R10.12 ; Essential hypertension I10 ; Non-intractable cyclical vomiting with nausea G43.A0 ; Microcytic anemia D50.9 ; Mixed hyperlipidemia E78.2 and BMI 45.0-49.9, adult Z68.42 [place] [id number] [place] [address] 27049- 1776 Apr, [place] [id number] [place] [address] 10397- 0824 Apr, Non-insulin treated type 2 diabetes mellitus E11.9 ; Essential hypertension I10 and Acquired hypothyroidism E03.9 [place] [id number] [place] [address] 44225- 6838 Mar, Encounter for immunization Z23 [address] 0[address]86- 6985 Mar, [address] 60098- 7856 Feb, Microcytic anemia D50.9 ; Pain of left great toe M79.675 and Reflux gastritis K29.60 [place] [id number] [place] [address] 45846- 6285 Feb, Coronary artery disease involving [place] coronary artery of [place] heart without angina pectoris I25.10 and Acquired hypothyroidism E03.9 [place] [id number] [place] [address] 39131- 8259 Jan, Psoriasis L40.9 ; Paroxysmal atrial fibrillation I48.0 ; Shortness of breath R06.02 and Microcytic anemia D50.9 [place] [id number] [place] [address] 00285- 8756 Dec, [place] [id number] [place] [address] 61762- 5010 Dec, [place] [id number] [place] [address] 41655- 0332 Dec, Coronary artery disease involving [place] coronary artery of [place] heart without angina pectoris I25.[address] 27132- 3160 Nov, Therapeutic drug monitoring Z51.81 ; Essential hypertension I10 ; Microcytic anemia D50.9 and Shortness of breath R06.[address] 45295- 7445 Nov, Acquired hypothyroidism E03.9 [facility] [address] [place] [address] 17576- 6591 October, [facility] [id number] [place] [address] 91645- 6907 Sep, Coronary artery disease involving [place] coronary artery of [place] heart without angina pectoris I25.10 [facility] [id number] [place] [address] 67939- 3515 Aug, [facility] [id number] [place] [address] 40657- 2197 Aug, Essential hypertension I10 [facility] [id number] [place] [address] 14030- 3553 Jul, Acquired hypothyroidism E03.9 ; Essential hypertension I10 ; Non-insulin treated type 2 diabetes mellitus E11.9 and Coronary artery disease involving [place] coronary artery of [place] heart without angina pectoris I25.10 [facility] [id number] [place] [address] 35488- 8429 Jul, [facility] [id number] [place] [address] 11267- 7143 Jul, Angina pectoris syndrome I20.9 and Essential hypertension I10 [facility] [id number] [place] [address] 29326- 6687 Jul, [facility] [id number] [place] [address] 94388- 8179 Jun, [facility] [address] [place] [address] 08602 -2401 May, Abscess L02.91 [facility] [id number] [place] [address] 44193- 8192 Apr, Non-insulin dependent type 2 diabetes mellitus E11.9 ; Essential hypertension I10 ; Acquired hypothyroidism E03.9 ; History of anemia Z86.2 and Coronary artery disease involving [place] coronary artery of [place] heart without angina pectoris I25.10 [facility] [address] [facility] [id number] [place] [address]- 6645 Apr, IMMUNIZATIONS No Known Immunizations SOCIAL HISTORY Never Assessed REASON FOR VISIT Diabetes-THOMPSON Jones PLAN OF CARE Activity Details Follow Up 4 Weeks with Katie daugherty anemia Reason: VITAL SIGNS Height 5'4" in 2017-09-01 Weight 267 lbs 2017-09-01 Temperature 97.5 degrees Fahrenheit 2017-09-01 Heart Rate 80 bpm 2017-09-01 Respiratory Rate 2017-09-01 BMI 45.83 kg/m2 2017-09-01 MEDICATIONS Medication Instructions Dosage Frequency Start Date End Date Duration Status Metoprolol Succinate ER 50 mg Orally Once a day 1 tablet in am 24h Active Carafate 1 GM Orally 4 times daily 1 tablet Apr, Aug, 30 day(s) Active Glucosamine 1500 Complex - Active Folic Acid 800 MCG Orally Once a day 1 tablet 24h Active Tizanidine HCl 4 MG Orally Three times a day 1 tablet as needed 8h 13 Jul, 2017 Active Test strips GLUCOCARD EXPRESSION TEST STRIPS 12h Aug, Active Zetia 10 mg Orally Once a day 1 tablet 24h Dec, Not-Taking Metformin HCl 1000 MG TAKE ONE TABLET BY MOUTH TWICE DAILY WITH MEALS 30 Active Furosemide 20 mg Orally Once a day as needed 1 tablet Jan, 30 days Active Tramadol HCl 50 mg Orally three times daily as needed 1 tablet Active Clobetasol Propionate 0.05 % Externally Twice a day, PRN 1 application to affected area Jan, Active Metoprolol Succinate ER 100 mg Orally Once a day 1 tablet at bedtime 24h Feb, 90 days Active Zofran 8 MG Orally Once a day 1 tablet 24h Apr, 30 day(s) Active Levothyroxine Sodium 200 MCG Orally Once a day 1 tablet on an empty stomach in the morning 24h Active Glimepiride 1 MG Orally 2 times a day 2 12h Active Protonix 40 MG Orally Once a day 1 tablet 24h Not-Taking Prilosec 20 mg Orally BID 2 capsule 12h Active RESULTS Name Result Date Reference Range A1C (IN HOUSE) 2017-09-01 A1C IN HOUSE 8.1 4.3 - 5.6 % Previous A1c 7.2 Lot [id number] Exp date 04/2019 PROCEDURES Procedure Date Ordered Result Body Site GLYCATED HEMOGLOBIN TEST September 01, 2017 INSTRUCTIONS MEDICATIONS ADMINISTERED No Known Medications [...] History Atrial Fibrillation January 2017 Hospitalization History [place] 09/30 Hospitalization History [facility] for lasix and blood products 08/09/17 Hospitalization History Blood/blood products 11/2017
--- OUTSIDE RECORDS SUMMARY | 2018-02-11 07:19 | XMS REPORT ---
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 Active 795257668 Problem Non-intractable cyclical vomiting with nausea G43.A0 Active 17154785 Problem Reflux gastritis K29.60 Active 72460890 Problem Non-insulin treated type 2 diabetes mellitus E11.9 Active 042212905 Problem Mixed hyperlipidemia E78.2 Active 317229630 Problem 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 Active 302312859 Problem Non-insulin dependent type 2 diabetes mellitus E11.9 Active 49906704 Problem 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 Active 2000360295033 Problem Essential hypertension I10 Active 13727650 Problem History of anemia Z86.2 Active 072311147 Problem Angina pectoris syndrome I20.9 Active 953293769 Problem Acquired hypothyroidism E03.9 Active 387281774 Problem Persistent atrial fibrillation I48.1 Active 025178711 ALLERGIES No Information ENCOUNTERS Encounter Location Date Diagnosis [facility] [address] [facility] [id number] [address] Jan, [facility] [address] [id number], [place] [address] Dec, [facility] [address] [id number], [place] [address] 99[address] Dec, Acquired hypothyroidism E03.9 [facility] [address], [place] [address] Dec, [facility] [id number] [place] [address] 72219- 6101 Dec, [facility] [id number] [place] [address]197 -8090 Nov, Lower abdominal pain R10.30 and BMI 45.0-49.9, adult Z68.42 [facility] [id number] [place] [address] 14048- 6795 Nov, BMI 45.0-49.9, adult Z68.42 [place] [id number] [place] [address] 24230- 9192 October, Congestive heart failure, unspecified HF chronicity, unspecified heart failure type I50.9 ; Acquired hypothyroidism E03.9 and BMI 45.0-49.9, adult Z68.42 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 and Persistent atrial fibrillation I48.1 [place] [id number] [place] [address] 16379- 6052 Sep, 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 [place] [id number] [place] [address] 60408- 8402 Sep, [place] [id number] [place] [address] 18492- 6900 Sep, Angina pectoris syndrome I20.9 ; Paroxysmal atrial fibrillation I48.0 ; Microcytic anemia D50.9 ; 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 and 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 [place] [id number] [place] [address] 08846- 2784 Aug, Non-insulin dependent type 2 diabetes mellitus E11.9 ; Microcytic anemia D50.9 ; Essential hypertension I10 and Acquired hypothyroidism E03.9 [place] [id number] [place] [address] 59305- 7561 Jul, [place] [address] [address]39- 4247 Jul, [place] [id number] [place] [address] 88504- 6469 Jun, [place] [id number] [place] [address] 84691- 5099 May, [place] [address] 77327- 7147 May, History of anemia Z86.2 [place] [id number] [place] [address] 86008- 1737 May, [place] [id number] [place] [address] 85667- 1796 May, [place] [id number] [place] [address] 32174- 2668 May, Non-insulin treated type 2 diabetes mellitus E11.9 [place] [id number] [place] [address] 93144- 7600 Apr, Abdominal pain, left upper quadrant R10.12 ; Essential hypertension I10 ; Non-intractable cyclical vomiting with nausea G43.A0 ; Microcytic anemia D50.9 ; Mixed hyperlipidemia E78.2 and BMI 45.0-49.9, adult Z68.42 [place] [address] 77807- 5262 Apr, [address] [address]238- 0824 Apr, Non-insulin treated type 2 diabetes mellitus E11.9 ; Essential hypertension I10 and Acquired hypothyroidism E03.[address] 69275- 8257 Mar, Encounter for immunization Z23 [address] [address]65- 4449 Mar, [address] 80506- 2336 Feb, Microcytic anemia D50.9 ; Pain of left great toe M79.675 and Reflux gastritis K29.[address] 13081- 7013 Feb, 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 and Acquired hypothyroidism E03.[address] 34603- 7250 Jan, Psoriasis L40.9 ; Paroxysmal atrial fibrillation I48.0 ; Shortness of breath R06.02 and Microcytic anemia D50.9 [place] [id number] [place] [address] 25728- 9932 Dec, [address] 84778- 5652 Dec, [address] 46032- 6123 Dec, 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 97661- 2122 Nov, Therapeutic drug monitoring Z51.81 ; Essential hypertension I10 ; Microcytic anemia D50.9 [address] Shortness of breath R06.02 [facility] [id number] [place] [address] 31749- 3350 Nov, Acquired hypothyroidism E03.9 [facility] [id number] [place] [address] 03327- 7306 October, [facility] [id number] [place] [address] 31543- 8360 Sep, 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 [facility] [id number] [place] [address] 27165- 0134 Aug, [place] [address] 86455- 6241 Aug, Essential hypertension I10 [place] [id number] [place] [address] 18787- 0270 20 Jul, 2016 Acquired hypothyroidism E03.9 ; Essential hypertension I10 ; Non-insulin treated type 2 diabetes mellitus E11.9 and 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 [place] [id number] [place] [address] 91449- 4365 Jul, [facility] [id number] [place] [address] 05741- 3890 Jul, Angina pectoris syndrome I20.9 [address] Essential hypertension I10 [facility] [id number] [place] [address] 96082- 5262 Jul, [facility] [id number] [place] [address] 06286- 9285 Jun, [facility] [id number] [place] [address] 87290 -3646 May, Abscess L02.91 [facility] [id number] [place] [address] 66954- 7892 Apr, Non-insulin dependent type 2 diabetes mellitus E11.9 ; Essential hypertension I10 ; Acquired hypothyroidism E03.9 ; History of anemia Z86.2 and 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 [facility] [address] [facility] [id number] [place] [address]74 14 Apr, 2016 IMMUNIZATIONS No Known Immunizations SOCIAL HISTORY Never Assessed REASON FOR VISIT Requests return call PLAN OF CARE VITAL SIGNS [...] History Atrial Fibrillation January 2017 Hospitalization History [place] 09/30 Hospitalization History [facility] for lasix and blood products 08/09/17 Hospitalization History Blood/blood products 11/2017
--- OUTSIDE RECORDS SUMMARY | 2018-02-11 07:19 | XMS REPORT ---
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 Active 031138071 Problem Non-intractable cyclical vomiting with nausea G43.A0 Active 09677285 Problem Reflux gastritis K29.60 Active 40528573 Problem Non-insulin treated type 2 diabetes mellitus E11.9 Active 005116975 Problem Mixed hyperlipidemia E78.2 Active 475571598 Problem 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 Active 454351798 Problem Non-insulin dependent type 2 diabetes mellitus E11.9 Active 03647480 Problem Coronary artery disease involving [place] coronary artery of [place] heart without angina pectoris I25.10 Active 8118334163892 Problem Essential hypertension I10 Active 91212729 Problem History of anemia Z86.2 Active 038095096 Problem Angina pectoris syndrome I20.9 Active 337637197 Problem Acquired hypothyroidism E03.9 Active 494550756 Problem Persistent atrial fibrillation I48.1 Active 945894705 ALLERGIES Substance Reaction Event Type Date Status Cefadroxil nausea Drug Allergy Sep, Active ALL STATINS nausea Non Drug Allergy Sep, Active ENCOUNTERS Encounter Location Date Diagnosis [facility] [address] [facility] [id number], [place] [address] Jan, [facility] [address] [facility] [id number] [place] [address] 9714 Jan, [facility] [address], [place] [address]- 4527 Dec, [facility] [id number] [place] [address] 26756- 8504 Dec, Acquired hypothyroidism E03.9 [facility] [id number] [place] [address] 50149- 7040 Dec, [facility] [id number] [place] [address] 23850- 1884 Dec, [facility] [id number] [place] [address] 73719 -3233 Nov, Lower abdominal pain R10.30 and BMI 45.0-49.9, adult Z68.42 [place] [id number] [place] [address] 11378- 5394 Nov, BMI 45.0-49.9, adult Z68.42 [place] [id number] [place] [address] 97311- 4071 October, Congestive heart failure, unspecified HF chronicity, unspecified heart failure type I50.9 ; Acquired hypothyroidism E03.9 and BMI 45.0-49.9, adult Z68.42 [place] [id number] [place] [address] 81556- 7845 October, Shortness of breath R06.02 [place] [id number] [place] [address] 07745- 0190 October, [place] [id number] [place] [address] 33280- 6530 October, [place] [id number] [place] [address] 62845- 7605 October, Essential hypertension I10 ; Coronary artery disease involving [place] coronary artery of [place] heart without angina pectoris I25.10 ; Angina pectoris syndrome I20.9 ; 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 and Persistent atrial fibrillation I48.1 [place] [id number] [place] [address] 30665- 7071 Sep, Coronary artery disease involving [place] coronary artery of [place] heart without angina pectoris I25.10 [place] [address] [place] [address] 92142- 4712 Sep, [facility] [id number] [place] [address] 34036- 9042 Sep, Angina pectoris syndrome I20.9 ; Paroxysmal atrial fibrillation I48.0 ; Microcytic anemia D50.9 ; 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 and 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 [place] [id number] [place] [address] 41391- 1803 Aug, Non-insulin dependent type 2 diabetes mellitus E11.9 ; Microcytic anemia D50.9 ; Essential hypertension I10 and Acquired hypothyroidism E03.9 [place] [id number] [place] [address] 39892- 1060 Jul, [place] [id number] [place] [address] 62458- 1380 Jul, [place] [id number] [place] [address] 51914- 1276 Jun, [place] [id number] [place] [address] 76227- 7517 May, [place] [id number] [place] [address] 06887- 8444 May, History of anemia Z86.2 [place] [address] [place] [address] 77184- 8915 May, [place] [id number] [place] [address] 42488- 0422 May, [place] [id number] [place] [address] 97541- 9537 May, Non-insulin treated type 2 diabetes mellitus E11.9 [facility] [id number] [place] [address] 87282- 6251 Apr, Abdominal pain, left upper quadrant R10.12 ; Essential hypertension I10 ; Non-intractable cyclical vomiting with nausea G43.A0 ; Microcytic anemia D50.9 ; Mixed hyperlipidemia E78.2 and BMI 45.0-49.9, adult Z68.[address] 68689- 3029 Apr, [address] 10002- 3392 Apr, Non-insulin treated type 2 diabetes mellitus E11.9 ; Essential hypertension I10 and Acquired hypothyroidism E03.[address] 83403- 4097 Mar, Encounter for immunization Z23 [address] 30428- 7984 Mar, [address] 27955- 6620 Feb, Microcytic anemia D50.9 ; Pain of left great toe M79.675 and Reflux gastritis K29.[address] 65986- 2940 Feb, Coronary artery disease involving [place] coronary artery of [place] heart without angina pectoris I25.10 and Acquired hypothyroidism E03.[address] 09747- 8589 Jan, Psoriasis L40.9 ; Paroxysmal atrial fibrillation I48.0 ; Shortness of breath R06.02 and Microcytic anemia D50.[address] 29296- 8299 Dec, [address] 02084- 3357 Dec, [address] 66529- 6970 Dec, Coronary artery disease involving [place] coronary artery of [place] heart without angina pectoris I25.10 [facility] [address] [place] [address] 50954- 4542 Nov, Therapeutic drug monitoring Z51.81 ; Essential hypertension I10 ; Microcytic anemia D50.9 and Shortness of breath R06.02 [facility] [id number] [place] [address] 23029- 7272 Nov, Acquired hypothyroidism E03.9 [facility] [id number] [place] [address] 63035- 2062 October, [facility] [address] 70232- 0820 Sep, Coronary artery disease involving [place] coronary artery of [place] heart without angina pectoris I25.10 [facility] [id number] [place] [address] 53003- 5482 Aug, [facility] [id number] [place] [address] 02149- 1547 Aug, Essential hypertension I10 [facility] [id number] [place] [address] 27834- 5402 Jul, Acquired hypothyroidism E03.9 ; Essential hypertension I10 ; Non-insulin treated type 2 diabetes mellitus E11.9 and Coronary artery disease involving [place] coronary artery of [place] heart without angina pectoris I25.10 [facility] [address] [place] [address] 24971- 1849 Jul, [facility] [id number] [place] [address] 08716- 4594 Jul, Angina pectoris syndrome I20.9 and Essential hypertension I10 [facility] [id number] [place] [address] 08827- 9351 Jul, [facility] [id number] [place] [address] 96713- 4491 Jun, [facility] IN [facility] [id number] [place] [address] 81961 -6996 May, Abscess L02.91 [facility] [address] [facility] [id number], [place] [address]- 8046 Apr, Non-insulin dependent type 2 diabetes mellitus E11.9 ; Essential hypertension I10 ; Acquired hypothyroidism E03.9 ; History of anemia Z86.2 and Coronary artery disease involving [place] coronary artery of [place] heart without angina pectoris I25.10 [place] [address] [facility] [id number], [place] [address]- 5116 Apr, IMMUNIZATIONS No Known Immunizations SOCIAL HISTORY Never Assessed REASON FOR VISIT Hospital f/u chest pain -- malgorzata benjamin PLAN OF CARE Activity Details Follow Up Make appt daisy Wilson after seen by JONATHAN Reason: VITAL SIGNS Height 5'4" in 2017-09-16 Weight 270.0 lbs 2017-09-16 Temperature 98.0 degrees Fahrenheit 2017-09-16 Heart Rate 88 bpm 2017-09-16 Respiratory Rate 22 2017-09-16 BMI 46.34 kg/m2 2017-09-16 Blood pressure systolic 132 mmHg 2017-09-16 Blood pressure diastolic 60 mmHg 2017-09-16 MEDICATIONS Medication Instructions Dosage Frequency Start Date End Date Duration Status Metoprolol Succinate ER 100 mg Orally Once a day 1 tablet at bedtime 24h Feb, 90 days Active Levothyroxine Sodium 200 MCG Orally Once a day 1 tablet on an empty stomach in the morning 24h Active Tizanidine HCl 4 MG Orally Three times a day 1 tablet as needed 8h Jul, Active Glimepiride 1 MG Orally 2 times a day 2 12h Active Clobetasol Propionate 0.05 % Externally Twice a day, PRN 1 application to affected area Jan, Active Furosemide 20 mg Orally Once a day as needed 1 tablet Jan, 30 days Active Glucosamine 1500 Complex - Active Metoprolol Succinate ER 50 mg Orally Once a day 1 tablet in am 24h Active Protonix 40 MG Orally Once a day 1 tablet 24h Not-Taking Zetia 10 mg Orally Once a day 1 tablet 24h 10 Dec, 2016 Not-Taking Folic Acid 800 MCG Orally Once a day 1 tablet 24h Active Test strips GLUCOCARD EXPRESSION TEST STRIPS 12h 20 Aug, 2017 Active Prilosec 40 mg Orally BID 1 capsule 12h Active Tramadol HCl 50 mg Orally three times daily as needed 1 tablet Active Metformin HCl 1000 MG TAKE ONE TABLET BY MOUTH TWICE DAILY WITH MEALS 30 Active Zofran 8 MG Orally Once a day 1 tablet 24h 30 Apr, 2017 30 day(s) Active RESULTS No Results PROCEDURES [...] History Atrial Fibrillation January 2017 Hospitalization History [place] 09/30 Hospitalization History [facility] for lasix and blood products 08/09/17 Hospitalization History Blood/blood products 11/2017
--- OUTSIDE RECORDS SUMMARY | 2018-02-11 07:20 | XMS REPORT ---
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 Active 349981820 Problem Non-intractable cyclical vomiting with nausea G43.A0 Active 44957188 Problem Reflux gastritis K29.60 Active 32132124 Problem Non-insulin treated type 2 diabetes mellitus E11.9 Active 264151829 Problem Mixed hyperlipidemia E78.2 Active 060718695 Problem 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 Active 483078237 Problem Non-insulin dependent type 2 diabetes mellitus E11.9 Active 80262363 Problem Coronary artery disease involving [place] coronary artery of [place] heart without angina pectoris I25.10 Active 2523391632640 Problem Essential hypertension I10 Active 73375920 Problem History of anemia Z86.2 Active 501132940 Problem Angina pectoris syndrome I20.9 Active 487492501 Problem Acquired hypothyroidism E03.9 Active 059634334 Problem Persistent atrial fibrillation I48.1 Active [id number] ALLERGIES No Information ENCOUNTERS Encounter Location Date Diagnosis [facility] [address] [facility] [id number] [address] Jan, [facility] [id number] [address] Dec, [facility] [address] [facility] [id number] [address] Nov, Lower abdominal pain R10.30 and BMI 45.0-49.9, adult Z68.42 [place] [id number] [place] [address]825[address] 4070 Nov, BMI 45.0-49.9, adult Z68.42 [place] [id number] [place] [address] 99903- 8522 October, Congestive heart failure, unspecified HF chronicity, unspecified heart failure type I50.9 ; Acquired hypothyroidism E03.9 and BMI 45.0-49.9, adult Z68.42 [place] [id number] [place] [address] 89304- 8263 October, Shortness of breath R06.02 [place] [id number] [place] [address] 99239- 7648 October, [place] [id number] [place] [address] 62841- 7790 October, [place] [id number] [place] [address] 74732- 3376 October, Essential hypertension I10 ; Coronary artery disease involving [place] coronary artery of [place] heart without angina pectoris I25.10 ; Angina pectoris syndrome I20.9 ; 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 and Persistent atrial fibrillation I48.1 [place] [id number] [place] [address] 51429- 5074 Sep, Coronary artery disease involving [place] coronary artery of [place] heart without angina pectoris I25.10 [place] [id number] [place] [address] 20934- 9558 Sep, [place] [id number] [place] [address] 30270- 5095 Sep, Angina pectoris syndrome I20.9 ; Paroxysmal atrial fibrillation I48.0 ; Microcytic anemia D50.9 ; 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 and 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 [place] [id number] [place] [address] 68948- 9548 Aug, Non-insulin dependent type 2 diabetes mellitus E11.9 ; Microcytic anemia D50.9 ; Essential hypertension I10 and Acquired hypothyroidism E03.9 [place] [id number] [place] [address] 11589- 1662 Jul, [place] [id number] [place] [address] 85318- 5479 Jul, [place] [address] [address]- 9692 Jun, [place] [address] 68490- 7495 May, [place] [address] [address]- [address] May, History of anemia Z86.2 [place] [address] 63198- 2989 May, [place] [id number] [place] [address] 31057- 9354 May, [place] [id number] [place] [address] 04738- 7128 May, Non-insulin treated type 2 diabetes mellitus E11.9 [place] [id number] [place] [address] 80168- 8881 Apr, Abdominal pain, left upper quadrant R10.12 ; Essential hypertension I10 ; Non-intractable cyclical vomiting with nausea G43.A0 ; Microcytic anemia D50.9 ; Mixed hyperlipidemia E78.2 and BMI 45.0-49.9, adult Z68.42 [place] [address] 79974- 6474 Apr, [place] [id number] [place] [address] 95520- 6191 Apr, Non-insulin treated type 2 diabetes mellitus E11.9 ; Essential hypertension I10 and Acquired hypothyroidism E03.9 [place] [id number] [place] [address] 75658- 5299 Mar, Encounter for immunization Z23 [place] [address] 17255- 1315 Mar, [place] [address] 26758- 3149 Feb, Microcytic anemia D50.9 ; Pain of left great toe M79.675 and Reflux gastritis K29.60 [place] [address] 19846- 6877 Feb, Coronary artery disease involving [place] coronary artery of [place] heart without angina pectoris I25.10 and Acquired hypothyroidism E03.9 [place] [address] 07154- 3588 Jan, Psoriasis L40.9 ; Paroxysmal atrial fibrillation I48.0 ; Shortness of breath R06.02 and Microcytic anemia D50.9 [place] [id number] [place] [address] 79630- 8500 Dec, [place] [address] 53703- 3224 Dec, [place] [address] 61719- 6615 Dec, Coronary artery disease involving [place] coronary artery of [place] heart without angina pectoris I25.10 [place] [id number] [place] [address] 96875- 9243 Nov, Therapeutic drug monitoring Z51.81 ; Essential hypertension I10 ; Microcytic anemia D50.9 and Shortness of breath R06.02 [place] [address] 93540- 0687 Nov, Acquired hypothyroidism E03.9 [place] [id number] [place] [address] 04388- 1080 October, [place] [address] 93950- 5069 Sep, Coronary artery disease involving [place] coronary artery of [place] heart without angina pectoris I25.10 [facility] [address] [place] [address] 34935- 8410 17 Aug, 2016 [place] [id number] [place] [address] 46080- 1373 Aug, Essential hypertension I10 [facility] [id number] [place] [address] 74697- 0520 20 Jul, 2016 Acquired hypothyroidism E03.9 ; Essential hypertension I10 ; Non-insulin treated type 2 diabetes mellitus E11.9 and Coronary artery disease involving [place] coronary artery of [place] heart without angina pectoris I25.10 [place] [id number] [place] [address] 59523- 7927 Jul, [place] [id number] [place] [address] 40650- 2461 Jul, Angina pectoris syndrome I20.9 and Essential hypertension I10 [place] [id number] [place] [address] 47368- 1803 Jul, [place] [id number] [place] [address] 39119- 0003 Jun, [facility] [address] [place] [address] 88691 -2384 May, Abscess L02.91 [facility] [id number] [place] [address] 75741- 4734 Apr, Non-insulin dependent type 2 diabetes mellitus E11.9 ; Essential hypertension I10 ; Acquired hypothyroidism E03.9 ; History of anemia Z86.2 and Coronary artery disease involving [place] coronary artery of [place] heart without angina pectoris I25.10 [facility] [address] [place] [address] 01040- 8419 14 Apr, 2016 IMMUNIZATIONS No Known Immunizations SOCIAL HISTORY Never Assessed REASON FOR VISIT Repository Medication refill PLAN OF CARE VITAL SIGNS MEDICATIONS Medication Instructions Dosage Frequency Start Date End Date Duration Status Glimepiride 1 MG Orally 2 times a day 2 12h Active Metoprolol Succinate ER 100 mg [...]
--- OUTSIDE RECORDS SUMMARY | 2018-02-11 07:20 | XMS REPORT ---
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 Active 588313207 Problem Non-insulin treated type 2 diabetes mellitus E11.9 Active 542574572 Problem Reflux gastritis K29.60 Active 17184188 Problem Psoriasis L40.9 Active 0330852 Problem Mixed hyperlipidemia E78.2 Active 287741164 Problem Non-intractable cyclical vomiting with nausea G43.A0 Active 16497935 Problem 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 Active 940343715 Problem Acquired hypothyroidism E03.9 Active 440085794 Problem Coronary artery disease involving [place] coronary artery of [place] heart without angina pectoris I25.10 Active 4724459139866 Problem Non-insulin dependent type 2 diabetes mellitus E11.9 Active 36064882 Problem Essential hypertension I10 Active 65286345 Problem History of anemia Z86.2 Active 789661987 Problem Angina pectoris syndrome I20.9 Active 550437589 ALLERGIES No Information ENCOUNTERS Encounter Location Date Diagnosis [facility] [id number], [place] [address] October, 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 [address] [place] [address] 38589- 9832 Sep, Coronary artery disease involving [place] coronary artery of [place] heart without angina pectoris I25.10 [facility] [id number] [place] [address] 50328- 0445 Sep, 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 [id number] [place] [address] 60923- 7605 Jun, [place] [id number] [place] [address] 59036- 7901 May, [place] [id number] [place] [address] 07335- 3563 May, History of anemia Z86.2 [facility] [id number] [place] [address] 63166- 5108 May, [place] [id number] [place] [address] 44428- 2645 May, [facility] [id number] [place] [address] 22494- 7180 May, Non-insulin treated type [address] [facility] [id number] [place] [address] 49262- 1146 Apr, Abdominal pain, left upper quadrant R10.12 ; Essential hypertension I10 ; Non-intractable cyclical vomiting with nausea G43.A0 ; Microcytic anemia D50.9 ; Mixed hyperlipidemia E78.2 and BMI 45.0-49.9, adult Z68.[address] 79021- 7284 Apr, [address] 00384- 3694 Apr, Non-insulin treated type 2 diabetes mellitus E11.9 ; Essential hypertension I10 and Acquired hypothyroidism E03.[address] 69591- 7912 Mar, Encounter for immunization Z23 [address] 42169- 8541 Mar, [address] 73142- 2981 Feb, Microcytic anemia D50.9 ; Pain of left great toe M79.675 and Reflux gastritis K29.[address] 47537- 7758 Feb, Coronary artery disease involving [place] coronary artery of [place] heart without angina pectoris I25.10 and Acquired hypothyroidism E03.[address] 67593- 2264 Jan, Psoriasis L40.9 ; Paroxysmal atrial fibrillation I48.0 ; Shortness of breath R06.02 and Microcytic anemia D50.[address] 30643- 3837 Dec, [address] 19737- 9696 Dec, [address] 72636- 2506 Dec, Coronary artery disease involving [place] coronary artery of [place] heart without angina pectoris I25.10 [facility] [address], [place] [address] Nov, Therapeutic drug monitoring Z51.81 ; Essential hypertension I10 ; Microcytic anemia D50.9 and Shortness of breath R06.02 [facility] [address], [place] [address] 4510 Nov, Acquired hypothyroidism E03.9 [facility] [id number] [place] [address] 17989- 1591 October, [facility] [id number] [place] [address] 14036- 2802 Sep, Coronary artery disease involving [place] coronary artery of [place] heart without angina pectoris I25.10 [place] [id number] [place] [address] 53314- 7966 Aug, [facility] [id number] [place] [address] 88392- 6015 Aug, Essential hypertension I10 [facility] [id number] [place] [address] 08602- 6830 Jul, Acquired hypothyroidism E03.9 ; Essential hypertension I10 ; Non-insulin treated type 2 diabetes mellitus E11.9 and Coronary artery disease involving [place] coronary artery of [place] heart without angina pectoris I25.10 [facility] [address], [place] [address] Jul, [facility] [address], [place] [address]- 2424 Jul, Angina pectoris syndrome I20.9 and Essential hypertension I10 [facility] [id number] [place] [address] 25988- 0211 Jul, [facility] [id number] [place] [address] 36028- 5147 Jun, [facility] [id number] [place] [address] 74794 -6196 May, [address] [facility] [address] [facility] [id number] [address] Apr, Non-insulin dependent type 2 diabetes mellitus E11.9 ; Essential hypertension I10 ; Acquired hypothyroidism E03.9 ; History of anemia Z86.2 and Coronary artery disease involving [place] coronary artery of [place] heart without angina pectoris I25.10 [facility] [address] [facility] [id number] [address] 14 Apr, 2016 IMMUNIZATIONS Vaccine Route Administration Date Status FLUARIX QUAD (3 AND UP) 2016 IM Intramuscular Apr 09, 2017 Administered SOCIAL HISTORY Never Assessed REASON FOR VISIT Flu shot-AHarrymanRN PLAN OF CARE VITAL SIGNS MEDICATIONS Unknown Medications RESULTS No Results PROCEDURES Procedure Date Ordered Result Body Site FLUARIX QUAD (3 AND UP) 2016Apr 09, 2017 SINGLE IMMUNIZATION ADMIN Apr 09, 2017 INSTRUCTIONS MEDICATIONS ADMINISTERED No Known Medications [...] History Atrial Fibrillation January 2017 Hospitalization History OR 09/30
--- OUTSIDE RECORDS SUMMARY | 2018-02-11 07:20 | XMS REPORT ---
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 Active 004520075 Problem Non-intractable cyclical vomiting with nausea G43.A0 Active 98376864 Problem Reflux gastritis K29.60 Active 22336705 Problem Non-insulin treated type 2 diabetes mellitus E11.9 Active 600944755 Problem Mixed hyperlipidemia E78.2 Active 472803361 Problem 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 Active 531473135 Problem Non-insulin dependent type 2 diabetes mellitus E11.9 Active 35463770 Problem Coronary artery disease involving [place] coronary artery of [place] heart without angina pectoris I25.10 Active 0829942701419 Problem Essential hypertension I10 Active 13263520 Problem History of anemia Z86.2 Active 372083592 Problem Angina pectoris syndrome I20.9 Active 645139771 Problem Acquired hypothyroidism E03.9 Active 201790249 Problem Persistent atrial fibrillation I48.1 Active 656868997 ALLERGIES No Information ENCOUNTERS Encounter Location Date Diagnosis [facility] [address] [facility] [id number] [address] Nov, BMI 45.0-49.9, adult Z68.42 [facility] [address] [facility] [id number] [address] October, Congestive heart failure, unspecified HF chronicity, unspecified heart failure type I50.9 ; Acquired hypothyroidism E03.9 and BMI 45.0-49.9, adult Z68.42 [facility] [address] [place] [id number] [place] [address] October, Shortness of breath R06.02 [facility] [address] [place] [id number] [place] [address] 5768 October, [place] [address] [address] October, [place] [address] [address]- [address] October, Essential hypertension I10 ; Coronary artery disease involving [place] coronary artery of [place] heart without angina pectoris I25.10 ; Angina pectoris syndrome I20.9 ; 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 and Persistent atrial fibrillation I48.[address] [address] Sep, Coronary artery disease involving [place] coronary artery of [place] heart without angina pectoris I25.10 [facility] [address] [place] [id number] [place] [address]655- 3773 Sep, [place] [address] [address] Sep, Angina pectoris syndrome I20.9 ; Paroxysmal atrial fibrillation I48.0 ; Microcytic anemia D50.9 ; 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 and 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 [place] [address] [place] [id number] [place] [address] 53797- 3836 Aug, Non-insulin dependent type 2 diabetes mellitus E11.9 ; Microcytic anemia D50.9 ; Essential hypertension I10 and Acquired hypothyroidism E03.9 [facility] [address] [place] [id number] [place] [address] 98360- 3922 Jul, [place] [address] [address] 8856 Jul, [place] [address] [place] [address] Jun, [place] [address] [address]- 3310 May, [place] [address] [address]- 59[address] May, History of anemia Z86.2 [place] [address] 22941- [address] May, [place] [address] [address]- 9703 May, [place] [address] [address]- 7[address] May, Non-insulin treated type 2 diabetes mellitus E11.9 [place] [address] [address]- [address] Apr, Abdominal pain, left upper quadrant R10.12 ; Essential hypertension I10 ; Non-intractable cyclical vomiting with nausea G43.A0 ; Microcytic anemia D50.9 ; Mixed hyperlipidemia E78.2 and BMI 45.0-49.9, adult Z68.42 [facility] [place] [address] [address]- 3[address] Apr, [place] [address] [address]- [address]41 Apr, Acquired hypothyroidism E03.9 ; Essential hypertension I10 and Non-insulin treated type 2 diabetes mellitus E11.9 [facility] [place] [address] [place] [id number] [place] [address] 94741- 4352 Mar, Encounter for immunization Z23 [facility] [address] [address]- [address]39 Mar, [place] [address] [place] [id number] [place] [address] 58736- 5009 Feb, Microcytic anemia D50.9 ; Pain of left great toe M79.675 and Reflux gastritis K29.60 [place] [address] [place] [address] 94549- 4996 Feb, Coronary artery disease involving [place] coronary artery of [place] heart without angina pectoris I25.10 and Acquired hypothyroidism E03.9 [facility] [address] [place] [id number] [place] [address] 87472- 3841 Jan, Psoriasis L40.9 ; Paroxysmal atrial fibrillation I48.0 ; Shortness of breath R06.02 and Microcytic anemia D50.9 [facility] [place] [address] [place] [id number] [place] [address] 32308- 5434 Dec, [facility] [place] [address] [place] [id number] [place] [address] 36080- 0882 Dec, [facility] [place] [address] [place] [id number] [place] [address] 60191- 2517 Dec, Coronary artery disease involving [place] coronary artery of [place] heart without angina pectoris I25.10 [facility] [address] [place] [id number] [place] [address] 78475- 0973 Nov, Therapeutic drug monitoring Z51.81 ; Essential hypertension I10 ; Microcytic anemia D50.9 and Shortness of breath R06.02 [place] [address] [place] [id number] [place] [address] 95596- 7987 Nov, Acquired hypothyroidism E03.9 [place] [address] [place] [id number] [place] [address] 42026- 6557 October, [place] [address] [place] [id number] [place] [address] 00176- 9943 Sep, Coronary artery disease involving [place] coronary artery of [place] heart without angina pectoris I25.10 [place] [address] [place] [id number] [place] [address] 70788- 0645 Aug, [place] [address] [place] [id number] [place] [address] 28209- 9396 Aug, Essential hypertension I10 [facility] [address] [place] [id number] [place] [address] 42096- 9871 Jul, Acquired hypothyroidism E03.9 ; Essential hypertension I10 ; Non-insulin treated type 2 diabetes mellitus E11.9 and Coronary artery disease involving [place] coronary artery of [place] heart without angina pectoris I25.10 [facility] [address] [address] Jul, [place] [address] [place] [id number] [place] [address] 31326- 3440 Jul, Angina pectoris syndrome I20.9 and Essential hypertension I10 [facility] [address] [place] [id number] [place] [address] 81744- 7706 Jul, [place] [address] [place] [id number] [place] [address] 18467- 4352 Jun, [facility] [address] [place] [address]24 -1564 May, Abscess L02.91 [place] [address] [place] [id number] [place] [address] 44921- 4331 22 Apr, 2016 Non-insulin dependent type 2 diabetes mellitus E11.9 ; Essential hypertension I10 ; Acquired hypothyroidism E03.9 ; History of anemia Z86.2 and Coronary artery disease involving [place] coronary artery of [place] heart without angina pectoris I25.10 [place] [address] [address] 14 Apr, 2016 IMMUNIZATIONS No Known Immunizations SOCIAL HISTORY Never Assessed REASON FOR VISIT Lab (walk-in)--[place] PLAN OF CARE VITAL SIGNS MEDICATIONS Unknown Medications RESULTS Name Result Date Reference Range HEMOGLOBIN (IN HOUSE) 2017-05-26 HEMOGLOBIN 6.3 11.5 - 16 gm/dL Lot # [id number] Exp date 05/04/18 PROCEDURES Procedure Date Ordered Result Body Site HEMOGLOBIN May 26, 2017 INSTRUCTIONS MEDICATIONS ADMINISTERED No Known Medications [...] History Atrial Fibrillation January 2017 Hospitalization History [place] 09/30 Hospitalization History [facility] for lasix and blood products 08/09/17
--- OUTSIDE RECORDS SUMMARY | 2018-02-11 07:20 | XMS REPORT ---
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 Active 505447218 Problem Non-intractable cyclical vomiting with nausea G43.A0 Active 29248539 Problem Reflux gastritis K29.60 Active 88827057 Problem Non-insulin treated type 2 diabetes mellitus E11.9 Active 769160053 Problem Mixed hyperlipidemia E78.2 Active 157675085 Problem 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 Active 816958760 Problem Non-insulin dependent type 2 diabetes mellitus E11.9 Active 25183695 Problem Coronary artery disease involving [place] coronary artery of [place] heart without angina pectoris I25.10 Active 9310380283846 Problem Essential hypertension I10 Active 10564016 Problem History of anemia Z86.2 Active 455220408 Problem Angina pectoris syndrome I20.9 Active 009853045 Problem Acquired hypothyroidism E03.9 Active 741510085 Problem Persistent atrial fibrillation I48.1 Active 545124457 ALLERGIES No Information ENCOUNTERS Encounter Location Date Diagnosis [facility] [address] [facility] [id number] [address] Nov, BMI 45.0-49.9, adult Z68.42 [facility] [address] [facility] [id number] [address] October, Congestive heart failure, unspecified HF chronicity, unspecified heart failure type I50.9 ; Acquired hypothyroidism E03.9 and BMI 45.0-49.9, adult Z68.42 [place] [address] [place] [id number] [place] [address] 19932- 1219 October, Shortness of breath R06.02 [place] [address] [place] [id number] [place] [address] 45262- 6012 October, [place] [address] [address]- [address]2 October, [place] [address] [address]4742- 4529 October, Essential hypertension I10 ; Coronary artery disease involving [place] coronary artery of [place] heart without angina pectoris I25.10 ; Angina pectoris syndrome I20.9 ; 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 and Persistent atrial fibrillation I48.[address] [address]- [address]9 Sep, Coronary artery disease involving [place] coronary artery of [place] heart without angina pectoris I25.10 [place] [address] [place] [id number] [place] [address] 54048- 5353 Sep, [place] [address] 7[address]67- 3997 Sep, Angina pectoris syndrome I20.9 ; Paroxysmal atrial fibrillation I48.0 ; Microcytic anemia D50.9 ; 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 and 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 [place] [address] [place] [id number] [place] [address] 32256- 8251 Aug, Non-insulin dependent type 2 diabetes mellitus E11.9 ; Microcytic anemia D50.9 ; Essential hypertension I10 and Acquired hypothyroidism E03.9 [place] [address] [place] [id number] [place] [address] 22547- 4314 Jul, [place] [address] 00386- 9776 Jul, [place] [address] [place] [address]- 0398 Jun, [place] [address] 6[address]14- 8203 May, [place] [address] 8[address]01- 2125 May, History of anemia Z86.2 [place] [address] 94681- 0192 May, [place] [address] 05649- 1368 May, [place] [address] 35588- 4977 May, Non-insulin treated type 2 diabetes mellitus E11.9 [place] [address] 18707- 1659 Apr, Abdominal pain, left upper quadrant R10.12 ; Essential hypertension I10 ; Non-intractable cyclical vomiting with nausea G43.A0 ; Microcytic anemia D50.9 ; Mixed hyperlipidemia E78.2 and BMI 45.0-49.9, adult Z68.42 [place] [address] 26406- 7250 Apr, [place] [address] 69508- 3778 Apr, Acquired hypothyroidism E03.9 ; Essential hypertension I10 and Non-insulin treated type 2 diabetes mellitus E11.9 [place] [address] [place] [id number] [place] [address] 52940- 9005 Mar, Encounter for immunization Z23 [place] [address] 08391- 9870 Mar, [place] [address] [place] [id number] [place] [address] 26521- 4618 Feb, Microcytic anemia D50.9 ; Pain of left great toe M79.675 and Reflux gastritis K29.60 [place] [address] [place] [address] 79268- 5851 Feb, Coronary artery disease involving [place] coronary artery of [place] heart without angina pectoris I25.10 and Acquired hypothyroidism E03.9 [facility] [address] [place] [id number] [place] [address] 49887- 5324 Jan, Psoriasis L40.9 ; Paroxysmal atrial fibrillation I48.0 ; Shortness of breath R06.02 and Microcytic anemia D50.9 [place] [address] [place] [id number] [place] [address] 30441- 0211 Dec, [place] [address] [place] [id number] [place] [address] 87752- 7398 Dec, [place] [address] [place] [id number] [place] [address] 83740- 6310 Dec, Coronary artery disease involving [place] coronary artery of [place] heart without angina pectoris I25.10 [place] [address] [place] [id number] [place] [address] 28058- 4039 Nov, Therapeutic drug monitoring Z51.81 ; Essential hypertension I10 ; Microcytic anemia D50.9 and Shortness of breath R06.02 [place] [address] [place] [id number] [place] [address] 58723- 6125 Nov, Acquired hypothyroidism E03.9 [facility] [place] [address] [place] [id number] [place] [address] 21998- 0060 October, [place] [address] [place] [id number] [place] [address] 89150- 5205 Sep, Coronary artery disease involving [place] coronary artery of [place] heart without angina pectoris I25.10 [place] [address] [place] [id number] [place] [address] 53727- 8409 Aug, [place] [address] [place] [id number] [place] [address] 15793- 7056 Aug, Essential hypertension I10 [facility] [address] [place] [id number] [place] [address] 32133- 6493 20 Jul, 2016 Acquired hypothyroidism E03.9 ; Essential hypertension I10 ; Non-insulin treated type 2 diabetes mellitus E11.9 and Coronary artery disease involving [place] coronary artery of [place] heart without angina pectoris I25.10 [facility] [address] [address]- 5[address] Jul, [place] [address] [place] [id number] [place] [address] 64927- 0119 Jul, Angina pectoris syndrome I20.9 and Essential hypertension I10 [place] [address] [place] [address] 75283- 2264 Jul, [place] [address] [place] [address] 47885- 1940 Jun, [facility] [address] [address] May, Abscess L02.91 [place] [address] [address]- 12[address] 22 Apr, 2016 Non-insulin dependent type 2 diabetes mellitus E11.9 ; Essential hypertension I10 ; Acquired hypothyroidism E03.9 ; History of anemia Z86.2 and Coronary artery disease involving [place] coronary artery of [place] heart without angina pectoris I25.10 [place] [address] [address]- 4[address] 14 Apr, 2016 IMMUNIZATIONS No Known Immunizations SOCIAL HISTORY Never Assessed REASON FOR VISIT PLAN OF CARE VITAL SIGNS MEDICATIONS Unknown [...] History Atrial Fibrillation January 2017 Hospitalization History [place] 09/30 Hospitalization History [facility] for lasix and blood products 08/09/17
--- OUTSIDE RECORDS SUMMARY | 2018-02-11 07:21 | XMS REPORT ---
Author Author JAMES TORRES Organization 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 Active 735184263 Problem Non-intractable cyclical vomiting with nausea G43.A0 Active 21926999 Problem Reflux gastritis K29.60 Active 05903371 Problem Non-insulin treated type 2 diabetes mellitus E11.9 Active 313700219 Problem Mixed hyperlipidemia E78.2 Active 475449681 Problem 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 Active 088899826 Problem Non-insulin dependent type 2 diabetes mellitus E11.9 Active 66814139 Problem Coronary artery disease involving tazlina coronary artery of tazlina heart without angina pectoris I25.10 Active 7263446171258 Problem Essential hypertension I10 Active 16857579 Problem History of anemia Z86.2 Active 278759190 Problem Angina pectoris syndrome I20.9 Active 503272369 Problem Acquired hypothyroidism E03.9 Active 959802270 Problem Persistent atrial fibrillation I48.1 Active 812447385 ALLERGIES No Information ENCOUNTERS Encounter Location Date Diagnosis [facility] [address] [facility] [id number] [address] Jan, [facility] [address] [id number] [address] Nov, Lower abdominal pain R10.30 and BMI 45.0-49.9, adult Z68.42 [facility] [id number] [place] [address]207[address]874 Nov, BMI 45.0-49.9, adult Z68.42 [place] [id number] [place] [address]15[address] 79[address] October, Congestive heart failure, unspecified HF chronicity, unspecified heart failure type I50.9 ; Acquired hypothyroidism E03.9 and BMI 45.0-49.9, adult Z68.42 [place] [id number] [place] [address] 11466- 7632 October, Shortness of breath R06.02 [place] [address] [address] October, [place] [address] [address]- [address] October, [place] [id number] [place] [address] 31840- 3082 October, Essential hypertension I10 ; Coronary artery disease involving tazlina coronary artery of tazlina heart without angina pectoris I25.10 ; Angina pectoris syndrome I20.9 ; 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 and Persistent atrial fibrillation I48.1 [place] [id number] [place] [address] 49158- 5760 Sep, Coronary artery disease involving tazlina coronary artery of tazlina heart without angina pectoris I25.10 [place] [id number] [place] [address] 65683- 2904 Sep, [place] [address] [id number] [place] [address] 46489- 8540 Sep, Angina pectoris syndrome I20.9 ; Paroxysmal atrial fibrillation I48.0 ; Microcytic anemia D50.9 ; 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 and 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 [id number] [place] [address] 47082- 3225 Jul, [place] [id number] [place] [address] 66817- 3905 Jul, [place] [id number] [place] [address] 44647- 8361 Jun, [place] [address] 86[address]- 3686 May, [place] [id number] [place] [address] 26988- 9534 May, History of anemia Z86.2 [place] [id number] [place] [address] 84850- 8205 May, [place] [id number] [place] [address] 56536- 2746 May, [place] [id number] [place] [address] 03833- 7323 May, Non-insulin treated type 2 diabetes mellitus E11.9 [place] [id number] [place] [address] 68283- 2903 Apr, Abdominal pain, left upper quadrant R10.12 ; Essential hypertension I10 ; Non-intractable cyclical vomiting with nausea G43.A0 ; Microcytic anemia D50.9 ; Mixed hyperlipidemia E78.2 and BMI 45.0-49.9, adult Z68.42 [place] [id number] [place] [address] 43880- 5826 Apr, [place] [address] 23882- 8381 Apr, Non-insulin treated type 2 diabetes mellitus E11.9 ; Essential hypertension I10 and Acquired hypothyroidism E03.9 [place] [id number] [place] [address] 86504- 0536 Mar, Encounter for immunization Z23 [place] [id number] [place] [address] 49759- 7277 Mar, [place] [address] 77144- 4046 Feb, Microcytic anemia D50.9 ; Pain of left great toe M79.675 and Reflux gastritis K29.60 [place] [address] 71703- 3726 Feb, Coronary artery disease involving tazlina coronary artery of tazlina heart without angina pectoris I25.10 and Acquired hypothyroidism E03.9 [place] [address] 28260- 7027 Jan, Psoriasis L40.9 ; Paroxysmal atrial fibrillation I48.0 ; Shortness of breath R06.02 and Microcytic anemia D50.9 [place] [address] [address]- 1955 Dec, [place] [address] 23352- 1753 Dec, [place] [address] 13843- 7768 Dec, Coronary artery disease involving tazlina coronary artery of tazlina heart without angina pectoris I25.10 [place] [id number] [place] [address] 22514- 4816 Nov, Therapeutic drug monitoring Z51.81 ; Essential hypertension I10 ; Microcytic anemia D50.9 and Shortness of breath R06.02 [place] [id number] [place] [address] 49855- 1473 Nov, Acquired hypothyroidism E03.9 [place] [address] 63089- 1292 October, [place] [id number] [place] [address] 21203- 9223 Sep, Coronary artery disease involving tazlina coronary artery of tazlina heart without angina pectoris I25.10 [facility] [address], [place] [address] 17 Aug, 2016 [facility] [id number] [place] [address] 48976- 1948 Aug, Essential hypertension I10 [facility] [id number] [place] [address] 54761- 1305 20 Jul, 2016 Acquired hypothyroidism E03.9 ; Essential hypertension I10 ; Non-insulin treated type 2 diabetes mellitus E11.9 and Coronary artery disease involving tazlina coronary artery of tazlina heart without angina pectoris I25.10 [place] [id number] [place] [address] 43478- 2446 15 Jul, 2016 [place] [id number] [place] [address] 86219- 8650 Jul, Angina pectoris syndrome I20.9 and Essential hypertension I10 [place] [id number] [place] [address] 86356- 6680 03 Jul, 2016 [facility] [id number] [place] [address] 42786- 4171 Jun, [facility] [id number] [place] [address] 98917 -2829 May, Abscess L02.91 [place] [id number] [place] [address] 05496- 2707 Apr, Non-insulin dependent type 2 diabetes mellitus E11.9 ; Essential hypertension I10 ; Acquired hypothyroidism E03.9 ; History of anemia Z86.2 and Coronary artery disease involving tazlina coronary artery of tazlina heart without angina pectoris I25.10 [place] [id number] [place] [address] 08933- 3377 14 Apr, 2016 IMMUNIZATIONS No Known Immunizations SOCIAL HISTORY Never Assessed REASON FOR VISIT phone call PLAN OF CARE VITAL SIGNS MEDICATIONS Medication Instructions Dosage Frequency Start Date End Date Duration Status Tizanidine HCl 4 MG Orally Three times a day 1 tablet as needed 8h 13 Jul, 2017 Active RESULTS No Results PROCEDURES No Known [...] History Atrial Fibrillation January 2017 Hospitalization History DC 09/30 Hospitalization History [facility] for lasix and blood products 08/09/17 Hospitalization History Blood/blood products 11/2017
--- OUTSIDE RECORDS SUMMARY | 2018-02-11 07:21 | XMS REPORT ---
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 Active 573311797 Problem Non-intractable cyclical vomiting with nausea G43.A0 Active 29910404 Problem Reflux gastritis K29.60 Active 31360445 Problem Non-insulin treated type 2 diabetes mellitus E11.9 Active 787379813 Problem Mixed hyperlipidemia E78.2 Active 215562678 Problem 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 Active 440665804 Problem Non-insulin dependent type 2 diabetes mellitus E11.9 Active 61444263 Problem 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 Active 1451469267185 Problem Essential hypertension I10 Active 43167275 Problem History of anemia Z86.2 Active 353374245 Problem Angina pectoris syndrome I20.9 Active 955613797 Problem Acquired hypothyroidism E03.9 Active 308203922 Problem Persistent atrial fibrillation I48.1 Active 507280865 ALLERGIES No Information ENCOUNTERS Encounter Location Date Diagnosis [facility] [address] [facility] [id number] [address] Nov, BMI 45.0-49.9, adult Z68.42 [facility] [address] [facility] [id number] [address] October, Congestive heart failure, unspecified HF chronicity, unspecified heart failure type I50.9 ; Acquired hypothyroidism E03.9 and BMI 45.0-49.9, adult Z68.42 [place] [id number] [place] [address] 74428- 3710 October, Shortness of breath R06.02 [place] [id number] [place] [address] 50483- 5414 October, [place] [address] 74711- 0906 October, [place] [address] 22559- 6401 October, Essential hypertension I10 ; 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 ; Angina pectoris syndrome I20.9 ; 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 and Persistent atrial fibrillation I48.[address] 29512- 5929 Sep, 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 [place] [id number] [place] [address] 06805- 7752 Sep, [place] [address] 20449- 9633 Sep, Angina pectoris syndrome I20.9 ; Paroxysmal atrial fibrillation I48.0 ; Microcytic anemia D50.9 ; 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 and 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 [place] [id number] [place] [address] 85692- 3524 Aug, Non-insulin dependent type 2 diabetes mellitus E11.9 ; Microcytic anemia D50.9 ; Essential hypertension I10 and Acquired hypothyroidism E03.9 [place] [id number] [place] [address] 83021- 7527 Jul, [place] [address] 66681- 6619 Jul, [place] [address] [place] [address]- 6584 Jun, [place] [address] 45532- 6647 May, [place] [address] 86798- 0784 May, History of anemia Z86.2 [place] [address] 65455- 6447 May, [place] [address] 45263- 8125 May, [place] [address] 24664- 6567 May, Non-insulin treated type 2 diabetes mellitus E11.9 [place] [address] 49641- 6250 Apr, Abdominal pain, left upper quadrant R10.12 ; Essential hypertension I10 ; Non-intractable cyclical vomiting with nausea G43.A0 ; Microcytic anemia D50.9 ; Mixed hyperlipidemia E78.2 and BMI 45.0-49.9, adult Z68.42 [place] [address] 54461- 3459 Apr, [place] [address] 50657- 7155 Apr, Non-insulin treated type 2 diabetes mellitus E11.9 ; Essential hypertension I10 and Acquired hypothyroidism E03.9 [place] [id number] [place] [address] 76454- 3408 Mar, Encounter for immunization Z23 [place] [address] 48517- 1227 Mar, [place] [id number] [place] [address] 43900- 6561 Feb, Microcytic anemia D50.9 ; Pain of left great toe M79.675 and Reflux gastritis K29.60 [place] [address] [place] [address] 98633- 3784 Feb, 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 and Acquired hypothyroidism E03.9 [facility] [id number] [place] [address] 58377- 0052 Jan, Psoriasis L40.9 ; Paroxysmal atrial fibrillation I48.0 ; Shortness of breath R06.02 and Microcytic anemia D50.9 [place] [id number] [place] [address] 73247- 7588 Dec, [place] [id number] [place] [address] 72692- 8279 Dec, [place] [id number] [place] [address] 98165- 9686 Dec, 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 [place] [id number] [place] [address] 93592- 5432 Nov, Therapeutic drug monitoring Z51.81 ; Essential hypertension I10 ; Microcytic anemia D50.9 and Shortness of breath R06.02 [place] [id number] [place] [address] 70076- 4094 Nov, Acquired hypothyroidism E03.9 [place] [id number] [place] [address] 66824- 1743 October, [place] [id number] [place] [address] 25304- 3804 Sep, 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 [place] [id number] [place] [address] 40578- 5918 Aug, [place] [id number] [place] [address] 48116- 0198 Aug, Essential hypertension I10 [place] [id number] [place] [address] 83874- 2278 Jul, Acquired hypothyroidism E03.9 ; Essential hypertension I10 ; Non-insulin treated type 2 diabetes mellitus E11.9 and 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 [place] [address] [address] 14 Apr, 2016 IMMUNIZATIONS No Known Immunizations SOCIAL HISTORY Never Assessed REASON FOR VISIT Refill Requests/Requests return call PLAN OF CARE VITAL SIGNS MEDICATIONS Medication Instructions Dosage Frequency Start Date End Date Duration Status Furosemide 20 mg Orally Once a day as needed 1 tablet Jan, 30 days Active Tramadol HCl 50 mg Orally three times daily as needed 1 tablet Active Promethazine HCl 25 MG Orally every 12 hrs 1 tablet as needed 12h Jun, 3 Jul, 2017 30 day(s) Active RESULTS No Results [...]
--- OUTSIDE RECORDS SUMMARY | 2018-02-11 07:22 | XMS REPORT ---
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 Active 248238715 Problem Non-intractable cyclical vomiting with nausea G43.A0 Active 92262453 Problem Reflux gastritis K29.60 Active 14687416 Problem Non-insulin treated type 2 diabetes mellitus E11.9 Active 446938657 Problem Mixed hyperlipidemia E78.2 Active 414898396 Problem 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 Active 599627087 Problem Non-insulin dependent type 2 diabetes mellitus E11.9 Active 97029998 Problem Coronary artery disease involving [place] coronary artery of [place] heart without angina pectoris I25.10 Active 4191549875302 Problem Essential hypertension I10 Active 86426148 Problem History of anemia Z86.2 Active 994177120 Problem Angina pectoris syndrome I20.9 Active 731178192 Problem Acquired hypothyroidism E03.9 Active 631518833 Problem Persistent atrial fibrillation I48.1 Active 243078412 ALLERGIES No Information ENCOUNTERS Encounter Location Date Diagnosis [facility] [address] [facility] [id number] [address] Nov, BMI 45.0-49.9, adult Z68.42 [facility] [address] [facility] [id number] [address] October, Congestive heart failure, unspecified HF chronicity, unspecified heart failure type I50.9 ; Acquired hypothyroidism E03.9 and BMI 45.0-49.9, adult Z68.42 [facility] [address] [place] [id number] [place] [address] October, Shortness of breath R06.02 [facility] [address] [id number] [place] [address] October, [place] [address] [address] October, [place] [address] [address] October, Essential hypertension I10 ; Coronary artery disease involving [place] coronary artery of [place] heart without angina pectoris I25.10 ; Angina pectoris syndrome I20.9 ; 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 and Persistent atrial fibrillation I48.[address] [address] Sep, Coronary artery disease involving [place] coronary artery of [place] heart without angina pectoris I25.10 [facility] [facility] [address] [id number] [place] [address] Sep, [place] [address] [address] Sep, Angina pectoris syndrome I20.9 ; Paroxysmal atrial fibrillation I48.0 ; Microcytic anemia D50.9 ; 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 and 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 [facility] [address] [place] [id number] [place] [address] Aug, Non-insulin dependent type 2 diabetes mellitus E11.9 ; Microcytic anemia D50.9 ; Essential hypertension I10 and Acquired hypothyroidism E03.9 [place] [address] [place] [id number] [place] [address] Jul, [place] [address] [address] Jul, [place] [address] [place] [address] Jun, [place] [address] [address] May, [place] [address] [address] May, History of anemia Z86.2 [place] [address] [address] May, [place] [address] [address] May, [place] [address] [address] May, Non-insulin treated type 2 diabetes mellitus E11.9 [place] [address] [address] Apr, Abdominal pain, left upper quadrant R10.12 ; Essential hypertension I10 ; Non-intractable cyclical vomiting with nausea G43.A0 ; Microcytic anemia D50.9 ; Mixed hyperlipidemia E78.2 and BMI 45.0-49.9, adult Z68.42 [place] [address] [address] Apr, [place] [address] [address] Apr, Acquired hypothyroidism E03.9 ; Essential hypertension I10 and Non-insulin treated type 2 diabetes mellitus E11.9 [facility] [facility] [address] [place] [id number] [place] [address] Mar, Encounter for immunization Z23 [facility] [address] [address] Mar, [place] [address] [place] [id number] [place] [address] Feb, Microcytic anemia D50.9 ; Pain of left great toe M79.675 and Reflux gastritis K29.60 [place] [address] [place] [address] Feb, Coronary artery disease involving [place] coronary artery of [place] heart without angina pectoris I25.10 and Acquired hypothyroidism E03.9 [facility] [address] [place] [id number] [place] [address] Jan, Psoriasis L40.9 ; Paroxysmal atrial fibrillation I48.0 ; Shortness of breath R06.02 and Microcytic anemia D50.9 [place] [address] [place] [id number] [place] [address] Dec, [place] [address] [place] [id number] [place] [address] Dec, [facility] [address] [address] [id number] [place] [address]- [address] Dec, Coronary artery disease involving [place] coronary artery of [place] heart without angina pectoris I25.10 [place] [address] [id number] [place] [address] Nov, Therapeutic drug monitoring Z51.81 ; Essential hypertension I10 ; Microcytic anemia D50.9 and Shortness of breath R06.02 [place] [address] [place] [id number] [place] [address] Nov, Acquired hypothyroidism E03.9 [place] [address] [place] [id number] [place] [address] October, [place] [address] [place] [id number] [place] [address] Sep, Coronary artery disease involving [place] coronary artery of [place] heart without angina pectoris I25.10 [facility] [address] [place] [id number] [place] [address] Aug, [place] [address] [place] [id number] [place] [address]- [address] Aug, Essential hypertension I10 [facility] [address] [place] [id number] [place] [address] 20 Jul, 2016 Acquired hypothyroidism E03.9 ; Essential hypertension I10 ; Non-insulin treated type 2 diabetes mellitus E11.9 and Coronary artery disease involving [place] coronary artery of [place] heart without angina pectoris I25.10 [facility] [address] [address] Jul, [place] [address] [place] [address]- [address] Jul, Angina pectoris syndrome I20.9 and Essential hypertension I10 [place] [address] [place] [address]- [address] Jul, [place] [address] [place] [address]- [address] Jun, [facility] [address] [address] May, Abscess L02.91 [facility] [address] [address] Apr, 2016 Non-insulin dependent type 2 diabetes mellitus E11.9 ; Essential hypertension I10 ; Acquired hypothyroidism E03.9 ; History of anemia Z86.2 and Coronary artery disease involving [place] coronary artery of [place] heart without angina pectoris I25.10 [place] [address] [address] 14 Apr, 2016 IMMUNIZATIONS No Known Immunizations SOCIAL HISTORY Never Assessed REASON FOR VISIT Jury Duty letter PLAN OF CARE VITAL SIGNS MEDICATIONS Unknown [...] Fibrillation January 2017 Hospitalization History OR 09/30 Hospitalization History [facility] for lasix and blood products 2/25/18
--- NOTE | 2018-02-11 07:23 | Diagnostic Imaging Report ---
INDICATION: Chest pain COMPARISON: 11/06/2017 FINDINGS: The cardiac silhouette unchanged in magnitude and configuration at least mildly enlarged. There is some prominence of the central pulmonary vascularity but no andrea edema. Body habitus limits exam sensitivity. Infiltrate or atelectasis in the left lung base could not be excluded. IMPRESSION: Limited by body habitus. Borderline cardiomegaly and venous congestion are redemonstrated. Suboptimal visualization of the left base. Dictated by: Dictated on workstation # [id number]
--- NOTE | 2018-02-11 07:44 | ED Chest Pain ---
General Chief Complaint: Chest Pain Stated Complaint: CHEST PAIN,UNSTABLE ANGINA;SEVERE ANEMIA;CHF Nursing Triage Note: chest pain all day, worse since 2099 Nursing Sepsis Screen: No Definite Risk Source: patient Exam Limitations: no limitations History of Present Illness Date Seen by Provider: Feb 10, 2018 Time Seen by Provider: 23:25 Initial Comments PT ARRIVES VIA POV FROM HOME C/O CHEST PAIN "OFF AND ON FOR AWHILE" BUT HAS HAD IT ALL DAY TODAY, AND HAS BEEN SEVERE SINCE 2099 TONIGHT HAS NTG AT HOME BUT HAS NOT TAKEN ANY PAIN RADIATES TO LEFT SHOULDER AND DOWN LEFT ARM TO HAND C/O NAUSEA, NO VOMITING C/O HEADACHE PT HAS HAD BILATERAL LEG SWELLING AND SHORTNESS OF BREATH FOR THE LAST COUPLE OF WEEKS HAS NOT TAKEN ANYTHING FOR PAIN RATES PAIN 10/10 SYMPTOMS WORSE WITH MINIMAL EXERTION PT HAS HISTORY OF CHF, ATRIAL FIBRILLATION, DM, HTN, HYPERLIPIDEMIA AND HAS HAD CARDIAC STENT IN PAST ADDITIONALLY, PT HAS LONG HISTORY OF ANEMIA DUE TO CHRONIC GI BLOOD LOSS, PT [facility] TODAY FOR CHRONIC ANEMIA AND HGB WAS 6.4, AND IS SCHEDULED TO HAVE A PORT PLACED AND RECEIVE 2 UNITS OF BLOOD ON Thursday02/12/18 PT HAS MULTIPLE ANTIBODIES DUE TO HISTORY OF MULTIPLE TRANSFUSIONS PT HAS NOT BEEN ABLE TO TOLERATE ASPIRIN OR ANTICOAGULANTS DUE TO THE ABOVE. PCP: DR. TORRES IT SECURITY ENGINEER: DR. ALCARAZ HEMATOLOGY: DR. AGARWAL Allergies and Home Medications Allergies Coded Allergies: Mdfsgoq-Unk-Oeh Reductase Inhibitor (Verified Allergy, Intermediate, GI UPSET, N/V, 11/06/17) cefadroxil (Unverified Allergy, Mild, 01/01/17) diltiazem (Verified Allergy, Unknown, mouth burning and swelling, 02/23/17) Home Medications Amoxicillin 500 Mg Capsule, 500 MG PO TIDWM Prescribed by: JULY CULLEN on 10/05/17 1333 Cetirizine HCl 10 Mg Tablet, 10 MG PO DAILY, (Reported) Folic Acid 0.8 Mg Capsule, 0.8 MG PO DAILY, (Reported) Furosemide 20 Mg Tablet, 20 MG PO HS, (Reported) Glimepiride 2 Mg Tablet, 2 MG PO BID, (Reported) Gluc 2Kcl/Chondr/Caty Hy/Hy AC 1 Each Capsule, 1 TAB PO BID, (Reported) Levothyroxine Sodium 200 Mcg Tablet, 200 MCG PO DAILY, (Reported) TAKES ALONG WITH LEVOTHYROXINE 200 MCG Levothyroxine Sodium 25 Mcg Tablet, 25 MCG PO DAILY, (Reported) TAKES ALONG WITH LEVOTHYROXINE 200 MCG Metformin HCl 1,000 Mg Tablet, 1,000 MG PO BID, (Reported) Metoprolol Succinate 100 Mg Tab.er.24h, 100 MG PO HS, (Reported) Metoprolol Succinate 50 Mg Tab.er.24h, 50 MG PO AM, (Reported) Nitroglycerin 0.4 Mg Tab.subl, 0.4 MG PO UD PRN for CHEST PAIN, (Reported) Omeprazole 40 Mg Capsule.dr, 40 MG PO BID, (Reported) Ondansetron HCl 8 Mg Tablet, 8 MG PO Q8H PRN for NAUSEA/VOMITING-1ST LINE, ( Reported) Promethazine HCl 25 Mg Tablet, 25 MG PO Q6H PRN for NAUSEA/VOMITING-4TH LINE, ( Reported) Rosuvastatin Calcium 5 Mg Tablet, 5 MG PO HS Prescribed by: JULY UCLLEN on 10/05/17 1333 Sucralfate 1 Gm Tablet, 1 GM PO QID, (Reported) Tizanidine HCl 4 Mg Tablet, 4 MG PO TID PRN for MUSCLE SPASMS, (Reported) Tramadol HCl 50 Mg Tablet, 50 MG PO TID PRN for PAIN-MODERATE, (Reported) Patient Home Medication List Home Medication List Reviewed: Yes Review of Systems Review of Systems Constitutional: No chills, No diaphoresis, No dizziness, No fever; malaise, weakness Respiratory: See HPI, Orthopnea, Shortness of Air, SOA With Exertion Cardiovascular: See HPI, Chest Pain, Edema; Denies Lightheadedness, Denies Palpitations, Denies Syncope Gastrointestinal: Denies Abdominal Pain; Nausea; Denies Rectal Bleeding, Denies Vomiting Genitourinary: No Symptoms Reported Musculoskeletal: see HPI Skin: no symptoms reported Psychiatric/Neurological: No Symptoms Reported Endocrine: No Symptoms Reported Hematologic/Lymphatic: See HPI Past Jsmfcpz-Yefckh-Fuivca Hx Patient Social History Alcohol Use: Denies Use Recreational Drug Use: No Smoking Status: Former Smoker Type Used: Cigarettes Former Smoker, Quit: Jun 15, 1984 Recent Foreign Travel: No Contact w/Someone Who Travel: No Recent Infectious Disease Expo: No Recent Hopitalizations: No Immunizations Up To Date Tetanus Booster (TDap): Unknown PED Vaccines UTD: Yes Date of Pneumonia Vaccine: Jun 23, 2016 Date of Influenza Vaccine: Mar 15, 2017 Seasonal Allergies Seasonal Allergies: Yes Past Medical History Surgeries: Yes (L ANKLE REPAIR, L KNEE SCOPE X2; CARDIAC CATHS--STENT X 1; EGD' S/COLONOSCOPIES/ POLYPECTOMY) Adenoidectomy, Cardiac, Coronary Stent, Orthopedic, Tonsillectomy, Tubal Ligation Respiratory: No Currently Using CPAP: No Currently Using BIPAP: No Cardiac: Yes (CHF, STENT X1) Atrial Fibrillation, Chronic Edema/Swelling, Coronary Artery Disease, Heart Attack, High Cholesterol, Hypertension Neurological: No : No Reproductive Disorders: No Female Reproductive Disorders: Denies [employer] History: Menopausal Sexually Transmitted Disease: No HIV/AIDS: No Genitourinary: Yes Renal Failure Gastrointestinal: Yes (POSS GI BLEED-CHRONIC GI BLOOD LOSS; POLYP REMOVAL; GASTRITIS ) Gastroesophageal Reflux, Gastrointestinal Bleed, Diverticulosis, Polyps Musculoskeletal: Yes Degenerate Disk Disease, Arthritis, Chronic Back Pain Endocrine: Yes (OBESITY) Diabetes, Non-Insulin dep HEENT: No Loss of Vision: Denies Hearing Impairment: Denies Cancer: No Psychosocial: No Integumentary: Yes Psoriasis Blood Disorders: Yes (CHRONIC IRON DEFICIENCY ANEMIA--CHRONIC GI BLOOD LOSS) Adverse Reaction/Blood Tranf: Yes (Antibody JKA) MULTIPLE Family Medical History Arthritis G8 BROTHER Completed stroke 19 MOTHER FH: anemia 19 MOTHER FH: lupus G8 SISTER FH: throat cancer 19 FATHER Hypertension G8 SISTER Myocardial infarction 19 MOTHER Thyroid disease 19 MOTHER G8 SISTER Hypertension, Stroke Physical Exam Vital Signs Vital Signs - First Documented Capillary Refill : Less Than 3 Seconds Height, Weight, BMI Height: 5'4.00" Weight: 250lbs. 1.0oz. 113.456685nl; 43.3 BMI Method:Stated General Appearance: No Apparent Distress, Obese HEENT: Pale Conjunctivae (L), Pale Conjunctivae (R) Neck: Full Range of Motion, Normal Inspection, Non Tender, Supple Respiratory: Normal Breath Sounds, No Accessory Muscle Use, No Respiratory Distress Cardiovascular: Regular Rate, Rhythm, No JVD, No Murmur, Normal Peripheral Pulses Gastrointestinal: Non Tender, Soft Extremity: Normal Capillary Refill, Normal Range of Motion, Non Tender, No Calf Tenderness, Pedal Edema (1-2+ EDEMA BILATERALLY) Neurologic/Psychiatric: Alert, Oriented x3, No Motor/Sensory Deficits, Normal Mood/Affect, gravity meter observer II-XII Norm as Tested Skin: Warm/Dry, Pallor Progress/Results/Core Measures Results/Orders Lab Results Laboratory Tests Test 02/10/18 23:36 Range/Units White Blood Count 5.1 4.3-11.0 10^3/uL Red Blood Count 2.13 L 4.35-5.85 10^6/uL Hemoglobin 6.6 *L 11.5-16.0 G/DL Hematocrit 21 L 35-52 % Mean Corpuscular Volume 97 80-99 FL Mean Corpuscular Hemoglobin 31 25-34 PG Mean Corpuscular Hemoglobin Concent 32 32-36 G/DL Red Cell Distribution Width 17.2 H 10.0-14.5 % Platelet Count 161 130-400 10^3/uL Mean Platelet Volume 10.7 H 7.4-10.4 FL Neutrophils (%) (Auto) 67 42-75 % Lymphocytes (%) (Auto) 16 12-44 % Monocytes (%) (Auto) 9 0-12 % Eosinophils (%) (Auto) 7 0-10 % Basophils (%) (Auto) 0 0-10 % Neutrophils # (Auto) 3.4 1.8-7.8 X 10^3 Lymphocytes # (Auto) 0.8 L 1.0-4.0 X 10^3 Monocytes # (Auto) 0.5 0.0-1.0 X 10^3 Eosinophils # (Auto) 0.4 H 0.0-0.3 10^3/uL Basophils # (Auto) 0.0 0.0-0.1 10^3/uL Prothrombin Time 14.0 12.2-14.7 SEC INR Comment 1.1 0.8-1.4 Activated Partial Thromboplast Time 26 24-35 SEC Sodium Level 136 135-145 MMOL/L Potassium Level 4.2 3.6-5.0 MMOL/L Chloride Level 104 98-107 MMOL/L Carbon Dioxide Level 21 21-32 MMOL/L Anion Gap 11 5-14 MMOL/L Blood Urea Nitrogen 25 H 7-18 MG/DL Creatinine 1.39 H 0.60-1.30 MG/DL Estimat Glomerular Filtration Rate 39 BUN/Creatinine Ratio 18 Glucose Level 383 H 70-105 MG/DL Calcium Level 9.4 8.5-10.1 MG/DL Corrected Calcium 9.6 8.5-10.1 MG/DL Magnesium Level 1.7 L 1.8-2.4 MG/DL Total Bilirubin 0.5 0.1-1.0 MG/DL Aspartate Amino Transf (AST/SGOT) 28 5-34 U/L Alanine Aminotransferase (ALT/SGPT) 13 0-55 U/L Alkaline Phosphatase 67 40-136 U/L Total Creatine Kinase 46 29-168 U/L Creatine Kinase MB 0.8 <6.6 NG/ML Myoglobin 35.1 10.0-92.0 NG/ML Troponin I < 0.30 <0.30 NG/ML B-Type Natriuretic Peptide 256.9 H <100.0 PG/ML Total Protein 7.2 6.4-8.2 GM/DL Albumin 3.7 3.2-4.5 GM/DL Amylase Level 47 25-125 U/L Lipase 53 8-78 U/L My Orders Orders - JOSR GILLIS DO Cbc With Automated Diff (02/10/18 23:) Magnesium (02/10/18 23:) Chest 1 View, Ap/Pa Only (02/10/18 23:26) Ekg Tracing (02/10/18 23:26) Cardiac Profile 1 (02/10/18 23:) Comprehensive Metabolic Panel (02/10/18:) Myoglobin Serum (02/10/18:) Protime With Inr (02/10/18 23:) Partial Thromboplastin Time (02/10/18 23:) O2 (02/10/18 23:) Monitor-Rhythm Ecg Trace Only (02/10/18 23:) Aspirin Chewable Tablet (Baby Aspirin Ch (02/10/18 23:30) Nitroglycerin 0.4 Mg Btl 25's (Nitrostat (02/10/18 23:30) Saline Lock/Iv-Start (02/10/18 23:26) Creatine Kinase (02/10/18 23:26) Creatine Kinase Mb (02/10/18 23:26) Lipase (02/10/18 23:26) Amylase (02/10/18 23:26) BNP (02/10/18 23:26) Nitroglycerin Ointment (Nitrobid Ointme (02/11/18 00:15) Morphine Injection (Morphine Injection (02/11/18 00:15) Furosemide Injection (Lasix Injection) (02/11/18 00:30) Medications Given in ED Current Medications Medications Dose Ordered Sig/Roberth Route Start Time Stop Time Status Last Admin Dose Admin Furosemide 40 mg ONCE ONCE IVP 02/11/18 00:30 02/11/18 01:05 DC 02/11/18 00:59 40 MG Nitroglycerin 0.4 mg UD PRN SL 02/10/18 23:30 02/10/18 23:53 DC 02/10/18 23:50 0.4 MG Nitroglycerin 1 inch ONCE ONCE TOP 02/11/18 00:15 02/11/18 00:16 DC 02/11/18 00:22 1 INCH Vital Signs/I&O 02/10/18 02/10/18 02/10/18 23:25 23:25 23:25 Temp 98.9 Pulse 89 Resp 16 B/P (MAP) 143/50 (81) Pulse Ox 95 95 O2 Delivery Nasal Cannula Nasal Cannula Nasal Cannula O2 Flow Rate 2.00 Blood Pressure Mean: 97 FSBG Bedside Testing Finger Stick Blood Glucose: 438 Blood Glucose Action Taken: Per am lab Progress Progress Note : Progress Note PAIN DOWN TO 2-3/10 WITH NTG SL X 3 0015--PAIN BACK UP TO 7/10--NITROPASTE AND MORPHINE ORDERED 0049--PAIN UP TO 9/10--GIVEN ADDITIONAL MORPHINE, REPEAT EKG DONE AND IS UNCHANGED. PAIN DOWN TO 5/10 AND IS CONTINUING TO DECREASE AT TIME OF ADMIT. VITALS REMAINED STABLE DURING ER STAY Initial ECG Impression Date: Feb 10, 2018 Initial ECG Impression Time: 23:25 Initial ECG Rate: 94 Initial ECG Rhythm: Normal Sinus (DIFFUSE ISCHEMIC CHANGES--ST DEPRESSION ) Initial ECG Comparisson: Changed EKG : EKG Time: 00:50 Rate: 93 Rhythm: Normal Sinus (WITH DIFFUSE ST DEPRESSION/ISCHEMIC CHANGES--SAME ABOVE. ) Diagnostic Imaging Comments CXR--CARDIOMEGALY AND CHF, PENDING RADIOLOGIST REVIEW Reviewed: Reviewed by Me Departure Communication (Admissions) 0026--SPOKE WITH DR. TORRES, ACCEPTS PT FOR ADMIT. ORDERS NOTED. Impression Primary Impression: Chest pain Additional Impressions: Unstable angina HX OF CAD WITH STENT CHF (congestive heart failure) Severe anemia CHRONIC ANEMIA TRANSFUSION DEPENDENT Uncontrolled diabetes mellitus Type 2 diabetes mellitus with hyperglycemia Disposition: ADMITTED INPATIENT Condition: Improved Admissions Decision to Admit Reason: Admit from ER (General) Decision to Admit/Date: Feb 11, 2018 Time/Decision to Admit Time: 00:30 Departure-Patient Inst. Referrals: JAMES TORRES MD (PCP) Primary Care Physician JOSR GILLIS DO Feb 11, 2018 07:44
[2018-02-11] MEDS: ASPIRIN E.C. 81 MG (ECOTRIN) TAB PO SCH ×2 (08:58→15:14)
--- NOTE | 2018-02-11 09:32 | Consultation-Cardiology ---
HPI-Cardiology Cardiology Consultation: Date of Consultation 02/11/18 Date of Admission Attending Physician Carla Wilson MD Admitting Physician Carla Wilson MD Consulting Physician Wei JORGE MD HPI: Time Seen by Provider: 10:00 Chief Complaint: Chest pain This is a 62-year-old lady who i see in my office regularly as well. She has history of congestive heart failure, paroxysmal atrial fibrillation, diabetes, hypertension, hyperlipidemia, previous history of PCI, chronic anemia with multifactorial etiologies including possible GI bleeding, hypothyroidism. She presents with prolonged episode of chest pain. She has been having on and off pain for a few days. However she's been having continuous pain last night. It is radiating to her left shoulder and left arm. There was one episode of vomiting and there is associated nausea. She did not take nitroglycerin. She also complains of shortness of breath and lower extremity swelling. On admission her pain was severe with 10/10 intensity. However when I saw the patient she was not having any chest pain. But has had off-and-on chest pain since admission. She was found to have an hemoglobin of 6.4. She was given one dose of aspirin but was not given any further antiplatelet or antithrombotic agent due to severe anemia and history of chronic GI bleeding. The patient also has had statin intolerance. Review of Systems-Cardiology Review of Systems Constitutional: As described under HPI; No As described under HPI, No no symptoms reported, No chills, No fever, No lightheadedness Eyes: No As described under HPI, No no symptoms reported, No blindness, No blurred vision, No contact lenses, No drainage, No decreased acuity, No foreign body sensation, No pain, No vision change Ears/Nose/Throat: No As described under HPI, No no symptoms reported, No chronic hearing loss, No ear discharge, No ear pain, No nasal drainage, No ulcerations Respiratory: No no symptoms reported; As described under HPI; No As described under HPI, No cough, No orthopnea; shortness of breath; No SOB with excertion Cardiovascular: No no symptoms reported; As described under HPI; No As described under HPI; chest pain; No edema, No irregular heart rate, No lightheadedness, No palpitations Gastrointestinal: No no symptoms reported, No As described under HPI, No abdomen distended, No abdominal pain, No blood streaked bowels, No constipation , No diarrhea, No nausea, No vomiting; nausea/vomiting/diarrhea; No stool coloration changes Genitourinary: No As described under HPI, No burning, No dysuria, No discharge , No frequency, No flank pain, No hematuria, No urgency : Yes : No Musculoskeletal: No no symptoms reported, No As describe under HPI, No back pain, No gout, No joint pain, No joint swelling, No muscle pain, No muscle stiffness, No neck pain, No other Skin: No no symptoms reported, No As described under HPI, No change in color, No change in hair/nails, No dryness, No lesions, No lumps, No rash, No other, No skin related problems, No ulcerations, No rash on exposed areas, No ulcerations on exposed areas Psychiatric/Neurological: No anxiety, No depression, No seizure, No focal weakness, No syncope Hematologic: anemia; No bleeding abnormalities LOP-Vqlsfv-Xuhapl Hx Patient Social History Alcohol Use: Denies Use Recreational Drug Use: No Smoking Status: Former Smoker Type Used: Cigarettes Recent Foreign Travel: No Recent Infectious Disease Expo: No Hospitalization with Isolation: Denies Physical Abuse Screen: No Sexual Abuse: No Immunizations Up To Date Tetanus Booster (TDap): Unknown Date of Pneumonia Vaccine: Jun 23, 2016 Date of Influenza Vaccine: Mar 15, 2017 Past Medical History PMH As described under Assessment. Family Medical History Family Medical History: Does not report fam h/o early CAD or SCD Family History: Arthritis G8 BROTHER Completed stroke 19 MOTHER FH: anemia 19 MOTHER FH: lupus G8 SISTER FH: throat cancer 19 FATHER Hypertension G8 SISTER Myocardial infarction 19 MOTHER Thyroid disease 19 MOTHER G8 SISTER Allergies and Home Medications Allergies Coded Allergies: Opukfux-Ytu-Thc Reductase Inhibitor (Verified Allergy, Intermediate, GI UPSET, N/V, 11/06/17) cefadroxil (Unverified Allergy, Mild, 01/01/17) diltiazem (Verified Allergy, Unknown, mouth burning and swelling, 02/23/17) Home Medications Cetirizine HCl 10 Mg Tablet, 10 MG PO DAILY, (Reported) Diphenhydramine HCl 25 Mg Capsule, 25 MG PO Q6H PRN for ALLERGIES, (Reported) Enalapril Maleate 5 Mg Tablet, 20 MG PO DAILY, (Reported) TAKES 4 (5MG) TABLETS Folic Acid 1 Mg Tablet, 1 MG PO DAILY, (Reported) Furosemide 20 Mg Tablet, 20 MG PO DAILY PRN for SWELLING, (Reported) Glimepiride 2 Mg Tablet, 2 MG PO BID, (Reported) Gluc 2Kcl/Chondr/Caty Hy/Hy AC 1 Each Capsule, 1 TAB PO BID, (Reported) Levothyroxine Sodium 175 Mcg Tablet, 175 MCG PO DAILY, (Reported) Metformin HCl 1,000 Mg Tablet, 1,000 MG PO BID WITH MEALS, (Reported) Nitroglycerin 0.4 Mg Tab.subl, 0.4 MG PO UD PRN for CHEST PAIN, (Reported) Omeprazole 40 Mg Capsule.dr, 40 MG PO BID, (Reported) Ondansetron HCl 8 Mg Tablet, 8 MG PO Q8H PRN for NAUSEA/VOMITING-1ST LINE, ( Reported) Tizanidine HCl 4 Mg Tablet, 4 MG PO TID PRN for MUSCLE SPASMS, (Reported) Tramadol HCl 50 Mg Tablet, 50 MG PO TID PRN for PAIN-MODERATE, (Reported) Patient Home Medication List Home Medication List Reviewed: Yes Physical Exam-Cardiology Physical Exam Vital Signs/I&O 02/11/18 02/11/18 02/11/18 02/11/18 02:30 02:40 02:55 03:00 Temp 98.6 98.5 98.5 Pulse 96 96 96 96 Resp 22 19 20 20 B/P (MAP) 154/63 (93) 154/63 127/43 127/43 (71) Pulse Ox 96 96 96 96 O2 Delivery Nasal Cannula Nasal Cannula Nasal Cannula Nasal Cannula O2 Flow Rate 2.00 2.00 2.00 2.00 02/11/18 02/11/18 02/11/18 02/11/18 03:50 04:00 04:00 05:00 Temp 98.6 Pulse 92 94 Resp 12 10 B/P (MAP) 139/59 (85) 152/61 (91) Pulse Ox 92 95 92 97 O2 Delivery Nasal Cannula Nasal Cannula Nasal Cannula Nasal Cannula O2 Flow Rate 3.00 3.00 3.00 3.00 02/11/18 02/11/18 02/11/18 02/11/18 05:52 06:00 06:37 06:51 Temp 98.4 97.4 97.6 Pulse 96 96 99 96 Resp 18 10 17 12 B/P (MAP) 152/61 151/62 (91) 170/70 155/69 Pulse Ox 98 97 97 97 O2 Delivery Nasal Cannula Nasal Cannula Nasal Cannula Nasal Cannula O2 Flow Rate 3.00 3.00 3.00 3.00 02/11/18 02/11/18 02/11/18 02/11/18 07:00 07:00 08:00 08:00 Temp 97.8 Pulse 98 98 Resp 10 B/P (MAP) 163/67 (99) Pulse Ox 97 O2 Delivery Nasal Cannula Nasal Cannula Nasal Cannula O2 Flow Rate 3.00 3.00 3.00 02/11/18 02/11/18 02/11/18 02/11/18 08:00 09:00 09:10 12:00 Temp 97.3 Pulse 98 102 102 Resp 10 12 16 B/P (MAP) 165/68 (100) 160/71 (100) 163/74 Pulse Ox 98 98 98 O2 Delivery Nasal Cannula Nasal Cannula Nasal Cannula Nasal Cannula O2 Flow Rate 3.00 3.00 3.00 3.00 02/11/18 12:15 Temp 98.3 Pulse 109 Resp 14 B/P (MAP) 158/58 (91) Pulse Ox 95 O2 Delivery Nasal Cannula O2 Flow Rate 3.00 Capillary Refill : Less Than 3 Seconds Constitutional: appears stated age, AAO x 3; No apparent distress; well- developed, well-nourished HEENT: PERRL; No normal ENT inspection, No TMs normal, No pharynx normal, No scleral icterus (R), No scleral icterus (L), No pale conjunctivae (R), No pale conjunctivae (L), No photophobia, No TM abnormal (R), No TM abnormal (L), No pharyngeal erythema, No tonsillar exudate, No other, No discharge, No EOMI; hearing is well preserved; No hard of hearing; oral hygience is good; No ulceration, No xanthelasmas are seen Neck: No non-tender, No full range of motion, No supple, No normal inspection, No carotid bruit, No limited range of motion, No lymphadenopathy (R), No lymphadenopathy (L), No tender lateral, No tender midline, No thyromegaly, No other; carotid pulses are 2 + bilaterally; No with good upstrokes Respiratory: No accessory muscle use, No respiratory distress, No chest tender , No chest expansion is symmetric; chest is bilaterally symmetric; No lungs clear to percussion; lungs clear to auscultation; No crackles, No rhonchi, No rales, No stridor, No wheezing, No pleural rub, No other Cardiovascular: regular rate-rhythm; No irregularly irregular, No extra beats, No parasternal heave is noted, No JVD, No edema, No bradycardia, No tachycardia , No point of maximal impulse, No cardiac thrills are palpable; S1 and S2; No gallop/S3, No gallop/S4, No diastolic murmur, No systolic murmur, No friction rub, No click, No other Gastrointestinal: No tender, No soft, No round, No distended, No pulsatile mass , No organomegaly, No guarding, No rebound, No tenderness, No hernia, No mass, No audible bowel sounds, No abnormal bowel sounds, No abdominal bruits, No spleenomegaly, No other Rectal: deferred Extremities: No normal range of motion, No non-tender, No normal inspection, No pedal edema, No calf tenderness, No normal capillary refill, No pelvis stable , No calf tenderness, No inflammation, No pedal edema, No slow capillary refill , No swelling, No other, No abrasion, No clubbing, No cyanosis, No ecchymosis, No laceration, No no lower extremity edema bilateral, No significant edema, No tenderness, No wound Neurologic/Psychiatric: no motor/sensory deficits, alert, normal mood/affect, oriented x 3, power is 5/5 both on sides Skin: No normal color, No warm/dry, No cyanosis, No cool, No diaphoresis, No damp, No ecchymosis, No jaundice, No mottled, No pallor, No rash, No tattoos/ piercings, No ulcerations, No rash on exposed areas, No ulcerations on exposed areas, No other Data Review Labs Laboratory Tests 02/10/18 23:36: White Blood Count 5.1, Red Blood Count 2.13L, Hemoglobin 6.6*L, Hematocrit 21L, Mean Corpuscular Volume 97, Mean Corpuscular Hemoglobin 31, Mean Corpuscular Hemoglobin Concent 32, Red Cell Distribution Width 17.2H, Platelet Count 161, Mean Platelet Volume 10.7H, Neutrophils (%) (Auto) 67, Lymphocytes (%) (Auto) 16 , Monocytes (%) (Auto) 9, Eosinophils (%) (Auto) 7, Basophils (%) (Auto) 0, Neutrophils # (Auto) 3.4, Lymphocytes # (Auto) 0.8L, Monocytes # (Auto) 0.5, Eosinophils # (Auto) 0.4H, Basophils # (Auto) 0.0, Prothrombin Time 14.0, INR Comment 1.1, Activated Partial Thromboplast Time 26, Sodium Level 136, Potassium Level 4.2, Chloride Level 104, Carbon Dioxide Level 21, Anion Gap 11, Blood Urea Nitrogen 25H, Creatinine 1.39H, Estimat Glomerular Filtration Rate 39 , BUN/Creatinine Ratio 18, Glucose Level 383H, Calcium Level 9.4, Corrected Calcium 9.6, Magnesium Level 1.7L, Total Bilirubin 0.5, Aspartate Amino Transf ( AST/SGOT) 28, Alanine Aminotransferase (ALT/SGPT) 13, Alkaline Phosphatase 67, Total Creatine Kinase 46, Creatine Kinase MB 0.8, Myoglobin 35.1, Troponin I < 0.30, B-Type Natriuretic Peptide 256.9H, Total Protein 7.2, Albumin 3.7, Amylase Level 47, Lipase 53 02/11/18 05:05: White Blood Count 7.6, Red Blood Count 2.30L, Hemoglobin 7.3L, Hematocrit 22L, Mean Corpuscular Volume 96, Mean Corpuscular Hemoglobin 32, Mean Corpuscular Hemoglobin Concent 33, Red Cell Distribution Width 16.6H, Platelet Count 188, Mean Platelet Volume 10.6H, Neutrophils (%) (Auto) 77H, Lymphocytes (%) (Auto) 13, Monocytes (%) (Auto) 7, Eosinophils (%) (Auto) 3, Basophils (%) (Auto) 1, Neutrophils # (Auto) 5.8, Lymphocytes # (Auto) 1.0, Monocytes # (Auto) 0.6, Eosinophils # (Auto) 0.2, Basophils # (Auto) 0.0, Sodium Level 136, Potassium Level 4.7, Chloride Level 103, Carbon Dioxide Level 22, Anion Gap 11, Blood Urea Nitrogen 24H, Creatinine 1.30, Estimat Glomerular Filtration Rate 42, BUN/ Creatinine Ratio 18, Glucose Level 438*H, Calcium Level 9.3, Corrected Calcium 9.5, Magnesium Level 1.6L, Total Bilirubin 0.7, Aspartate Amino Transf (AST/SGOT ) 28, Alanine Aminotransferase (ALT/SGPT) 12, Alkaline Phosphatase 67, Myoglobin 43.9, Troponin I < 0.30, Total Protein 7.1, Albumin 3.7, Phosphorus Level 3.4, Triglycerides Level 172H, Cholesterol Level 188, LDL Cholesterol Direct 118, VLDL Cholesterol 34, HDL Cholesterol 34L 02/11/18 08:57: Glucometer 374H 02/11/18 12:49: Hemoglobin 8.1L, Hematocrit 25L, Troponin I 0.35*H ECG Impression ECG Initial ECG Rhythm: Normal Sinus Comment ST depressions are noted. A/P-Cardiology Assessment/Admission Diagnosis Non-STEMI, previous history of CAD, Diabetes, Severe anemia, fevers history of chronic GI bleeding, Hypertension, Hyperlipidemia, in tolerant to statins. Plan Non-STEMI likely due to severe anemia, however, ACS due to obstructed CAD and plaque rupture cannot be ruled out. Hemoglobin 6.4. Was given 2 units and hemoglobin is still 8.1. Has history of chronic GI bleeding. Was not on any oral antiplatelet agents. She is also statin intolerant. Therefore she was only on enalapril. Her LDL is 118. She is a complicated patient. She does have history of obstructive CAD with at least 1 PCI. I have discussed at length with Dr. Wilson. I will also discuss with Dr. Grace who has been requested for hematology consultation. I would like to get advice on whether we can perform coronary angiography and possible intervention. We will need to give aspirin, bolus Plavix and at least [id number] units of IV heparin during the procedure. Also my second question will be as to how long we can give dual antiplatelet therapy with aspirin and Plavix. With drug-eluting stents, patients require at least one year of aspirin and Plavix. 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 I will therefore weight for Dr. Wilson and Dr. Grace to her advise on timing of coronary angiography and possible intervention. In the meantime we will start nitroglycerin infusion. She was given aspirin in the hospital. Echocardiogram will be recommended. Thank you for your consultation. Please call me if you have any questions. Estela Jorge MD, FACP, FACC, FSCAI, FHRS, CCDS Interventional Cardiology Cardiac Electrophysiology Vascular Medicine and Endovascular Interventions Clinical Quality Measures AMI/AHF: ASA po Prior to arrival: No DVT/VTE Risk/Contraindication: Risk Factor Score Per Nursin RFS Level Per Nursing on Admit: 4+=Very High Wei JORGE MD Feb 11, 2018 9:32 am
--- NOTE | 2018-02-11 10:16 | Diagnostic Imaging Report ---
INDICATION: Dyspnea. Frontal chest obtained at 3:07 p.m. FINDINGS: There is cardiomegaly. There is mild central vascular congestion. There is no new consolidation or pneumothorax or pleural fluid. IMPRESSION: Cardiomegaly and central vascular congestion appearing similar to the prior study of yesterday. No new abnormality. Dictated by: Dictated on workstation # [id number]
[2018-02-11] MEDS ORDERED: EZET10TA5 PO (10:29)
[2018-02-11] MEDS ORDERED: DIPH25CA79 PO (10:29)
[2018-02-11] MEDS ORDERED: LEVO175T5 PO (10:29)
[2018-02-11] MEDS ORDERED: FOLI1TAB24 PO (10:29)
[2018-02-11] MEDS ORDERED: ENAL5TAB PO (10:35)
--- NOTE | 2018-02-11 11:34 | History & Physicial (CHS) ---
[facility] MEDICAL STUDENT 02/11/18 11:34am: HPI History of Present Illness: Ms. Fields is a 62 yo F with a PMH of CHF, A fib, DM, HTN, HLD, cardiac stent x1 , chronic anemia d/t GI bleed, hypothyroid who presented with chest pain. She reported that she had been having the pain on and off for several weeks but it became continuous and severe yesterday 02/10 at 9pm. She reported that it radiated to her L shoulder and down her L arm with associated nausea, vomit x1 in ED and [facility]RE[facility]. She has NTG at home but she did not take any. She also reports that she has been having BL LE swelling with associated SOB for several weeks. On presentation she reported that her pain was 10/10. She is not taking any aspirin or anticoagulants d/t chronic GI bleeds. She was given morphine, NTG and 2u of blood in the ED as her Hb was 6.6. Source: patient Exam Limitations: no limitations Time Seen by Provider: 10:00 Attending Physician James Torres MD PCP James Torres MD Consult Date of Admission Feb 11, 2018 at 00:30 Home Medications Home Medications Reviewed patient Home Medication Reconciliation performed by pharmacy medication reconciliations ski technician and/or nursing. Patients Allergies have been reviewed. Allergies Coded Allergies: Akrjdwi-Spq-Xwa Reductase Inhibitor (Verified Allergy, Intermediate, GI UPSET, N/V, 11/06/17) cefadroxil (Unverified Allergy, Mild, 01/01/17) diltiazem (Verified Allergy, Unknown, mouth burning and swelling, 02/23/17) FHW-Twsfsz-Lebgfk Hx Patient Social History Alcohol Use: Denies Use Recreational Drug Use: No Smoking Status: Former Smoker Former smoker/When Quit: Jun 15, 1984 (1984) Type Used: Cigarettes Recent Foreign Travel: No Contact w/other who traveled: No Recent Hopitalizations: No Recent Infectious Disease Expo: No Physical Abuse Screen: No Sexual Abuse: No Immunizations Up To Date Tetanus Booster (TDap): Unknown Date of Pneumonia Vaccine: Jun 23, 2016 Date of Influenza Vaccine: Mar 15, 2017 Past Medical History PMHx: Paroxysmal Atrial fibrillation CAD NIDDM Chronic Microcytic anemia, transfusion dependent HTN HLD CHF Family Medical History Significant Family History: Hypertension, Stroke Family History: Arthritis G8 BROTHER Completed stroke 19 MOTHER FH: anemia 19 MOTHER FH: lupus G8 SISTER FH: throat cancer 19 FATHER Hypertension G8 SISTER Myocardial infarction 19 MOTHER Thyroid disease 19 MOTHER G8 SISTER Review of Systems ([facility]) Constitutional: No chills, No fever EENTM: No no symptoms reported Respiratory: see HPI; No dyspnea on exertion, No short of breath Cardiovascular: see HPI; No chest pain Gastrointestinal: No abdominal pain, No nausea, No vomiting Musculoskeletal: No no symptoms reported Skin: No no symptoms reported Psychiatric/Neurological: Denies No Symptoms Reported Physical Exam-([facility]) Physical Exam Vital Signs VS - Last 72 Hours, by Label 02/10/18 02/10/18 02/10/18 02/11/18 23:25 23:25 23:25 00:40 Temp 98.9 98.7 Pulse 89 94 Resp 16 14 B/P (MAP) 143/50 (81) 162/93 Pulse Ox 95 95 96 O2 Delivery Nasal Cannula Nasal Cannula Nasal Cannula Nasal Cannula O2 Flow Rate 2.00 2.00 02/11/18 02/11/18 02/11/18 02/11/18 01:15 01:30 01:40 02:00 Temp 98.4 Pulse 96 90 93 Resp 18 19 16 B/P (MAP) 121/41 (67) 129/57 (81) 148/60 (89) Pulse Ox 90 91 88 93 O2 Delivery Room Air Nasal Cannula Nasal Cannula Nasal Cannula O2 Flow Rate 2.00 2.00 02/11/18 02/11/18 02/11/18 02/11/18 02:03 02:14 02:30 02:40 Temp 98.6 Pulse 94 96 96 Resp 22 19 B/P (MAP) 154/63 (93) 154/63 Pulse Ox 98 96 96 O2 Delivery Nasal Cannula Nasal Cannula Nasal Cannula O2 Flow Rate 3.00 2.00 2.00 02/11/18 02/11/18 02/11/18 02/11/18 02:55 03:00 03:50 04:00 Temp 98.5 98.5 98.6 Pulse 96 96 92 Resp 20 20 12 B/P (MAP) 127/43 127/43 (71) 139/59 (85) Pulse Ox 96 96 92 95 O2 Delivery Nasal Cannula Nasal Cannula Nasal Cannula Nasal Cannula O2 Flow Rate 2.00 2.00 3.00 3.00 02/11/18 02/11/18 02/11/18 02/11/18 04:00 05:00 05:52 06:00 Temp 98.4 Pulse 94 96 96 Resp 10 18 10 B/P (MAP) 152/61 (91) 152/61 151/62 (91) Pulse Ox 92 97 98 97 O2 Delivery Nasal Cannula Nasal Cannula Nasal Cannula Nasal Cannula O2 Flow Rate 3.00 3.00 3.00 3.00 02/11/18 02/11/18 02/11/18 02/11/18 06:37 06:51 07:00 07:00 Temp 97.4 97.6 Pulse 99 96 98 98 Resp 17 12 10 B/P (MAP) 170/70 155/69 163/67 (99) Pulse Ox 97 97 97 O2 Delivery Nasal Cannula Nasal Cannula Nasal Cannula O2 Flow Rate 3.00 3.00 3.00 02/11/18 02/11/18 02/11/18 02/11/18 08:00 08:00 08:00 09:00 Temp 97.8 Pulse 98 102 Resp 10 12 B/P (MAP) 165/68 (100) 160/71 (100) Pulse Ox 98 98 O2 Delivery Nasal Cannula Nasal Cannula Nasal Cannula Nasal Cannula O2 Flow Rate 3.00 3.00 3.00 3.00 02/11/18 09:10 Temp 97.3 Pulse 102 Resp 16 B/P (MAP) 163/74 Pulse Ox 98 O2 Delivery Nasal Cannula O2 Flow Rate 3.00 Capillary Refill : Less Than 3 Seconds General Appearance: No no apparent distress Eyes: Bilateral Eye Normal Inspection, Bilateral Eye EOMI Respiratory: lungs clear, normal breath sounds, no respiratory distress, no accessory muscle use Cardiovascular: normal peripheral pulses, regular rate, rhythm, no murmur Gastrointestinal: normal bowel sounds, non tender, soft Extremities: pedal edema Assessment/Plan Assessment/Plan Admission Dx ACS Admission Status: Inpatient Order (span 2 midnights) Reason for Inpatient Admission: ACS Assessment & Plan Ms. Fields is a 62 yo F with a PMH of CHF, A fib, DM, HTN, HLD, cardiac stent x1 , chronic anemia d/t GI bleed, hypothyroid who presented with chest pain. Chest Pain d/t demand ischemic vs CAD CHF Anemia -No ABA on ECG -Trop neg x2 -received 2u of blood >Cardiology consulted, awaiting recs >aspirin, NTG, morphine >Continue CLOSET BUILDER enalapril, lasix, folic acid DM -hold CLOSET BUILDER meds >LDCF Hypothyroid >cont CLOSET BUILDER synthroid Chronic pain >Continue CLOSET BUILDER tizanidine and tramadol Clinical Quality Measures AMI/AHF: ASA po Prior to arrival: No DVT/VTE Risk/Contraindication: Risk Factor Score Per Nursin RFS Level Per Nursing on Admit: 4+=Very High Copy Copies To 1: JAMES TORRES MD, HOLLY R MD 02/11/18 2:48pm: HPI History of Present Illness: Reviewed student's HPI with patient. Date seen by provider: Feb 11, 2018 Home Medications Allergies Coded Allergies: Yuxvdil-Zco-Yqq Reductase Inhibitor (Verified Allergy, Intermediate, GI UPSET, N/V, 11/06/17) cefadroxil (Unverified Allergy, Mild, 01/01/17) diltiazem (Verified Allergy, Unknown, mouth burning and swelling, 02/23/17) DDF-Fqrtzk-Hnlxll Hx Patient Social History Living Status: Lives at home with Family Medical History Family History: Arthritis G8 BROTHER Completed stroke 19 MOTHER FH: anemia 19 MOTHER FH: lupus G8 SISTER FH: throat cancer 19 FATHER Hypertension G8 SISTER Myocardial infarction 19 MOTHER Thyroid disease 19 MOTHER G8 SISTER Reviewed Test Results Reviewed Test Results Lab Laboratory Tests Test 02/10/18 23:36 02/11/18 05:05 02/11/18 08:57 02/11/18 12:49 Range/Units White Blood Count 5.1 7.6 4.3-11.0 10^3/uL Red Blood Count 2.13 L 2.30 L 4.35-5.85 10^6/uL Hemoglobin 6.6 *L 7.3 L 8.1 L 11.5-16.0 G/DL Hematocrit 21 L 22 L 25 L 35-52 % Mean Corpuscular Volume 97 96 80-99 FL Mean Corpuscular Hemoglobin 31 32 25-34 PG Mean Corpuscular Hemoglobin Concent 32 33 32-36 G/DL Red Cell Distribution Width 17.2 H 16.6 H 10.0-14.5 % Platelet Count 161 188 130-400 10^3/uL Mean Platelet Volume 10.7 H 10.6 H 7.4-10.4 FL Neutrophils (%) (Auto) 67 77 H 42-75 % Lymphocytes (%) (Auto) 16 13 12-44 % Monocytes (%) (Auto) 9 7 0-12 % Eosinophils (%) (Auto) 7 3 0-10 % Basophils (%) (Auto) 0 1 0-10 % Neutrophils # (Auto) 3.4 5.8 1.8-7.8 X 10^3 Lymphocytes # (Auto) 0.8 L 1.0 1.0-4.0 X 10^3 Monocytes # (Auto) 0.5 0.6 0.0-1.0 X 10^3 Eosinophils # (Auto) 0.4 H 0.2 0.0-0.3 10^3/uL Basophils # (Auto) 0.0 0.0 0.0-0.1 10^3/uL Prothrombin Time 14.0 12.2-14.7 SEC INR Comment 1.1 0.8-1.4 Activated Partial Thromboplast Time 26 24-35 SEC Sodium Level 136 136 135-145 MMOL/L Potassium Level 4.2 4.7 3.6-5.0 MMOL/L Chloride Level 104 103 98-107 MMOL/L Carbon Dioxide Level 21 22 21-32 MMOL/L Anion Gap 11 11 5-14 MMOL/L Blood Urea Nitrogen 25 H 24 H 7-18 MG/DL Creatinine 1.39 H 1.30 0.60-1.30 MG/DL Estimat Glomerular Filtration Rate 39 42 BUN/Creatinine Ratio 18 18 Glucose Level 383 H 438 *H 70-105 MG/DL Calcium Level 9.4 9.3 8.5-10.1 MG/DL Corrected Calcium 9.6 9.5 8.5-10.1 MG/DL Magnesium Level 1.7 L 1.6 L 1.8-2.4 MG/DL Total Bilirubin 0.5 0.7 0.1-1.0 MG/DL Aspartate Amino Transf (AST/SGOT) 28 28 5-34 U/L Alanine Aminotransferase (ALT/SGPT) 13 12 0-55 U/L Alkaline Phosphatase 67 67 40-136 U/L Total Creatine Kinase 46 29-168 U/L Creatine Kinase MB 0.8 <6.6 NG/ML Myoglobin 35.1 43.9 10.0-92.0 NG/ML Troponin I < 0.30 < 0.30 0.35 *H <0.30 NG/ML B-Type Natriuretic Peptide 256.9 H <100.0 PG/ML Total Protein 7.2 7.1 6.4-8.2 GM/DL Albumin 3.7 3.7 3.2-4.5 GM/DL Amylase Level 47 25-125 U/L Lipase 53 8-78 U/L Phosphorus Level 3.4 2.3-4.7 MG/DL Triglycerides Level 172 H <150 MG/DL Cholesterol Level 188 < 200 MG/DL LDL Cholesterol Direct 118 1-129 MG/DL VLDL Cholesterol 34 5-40 MG/DL HDL Cholesterol 34 L 40-60 MG/DL Glucometer 374 H 70-110 MG/DL Radiology Date of Exam: 02/11/18 CHEST 1 VIEW, AP/PA ONLY INDICATION: Dyspnea. Frontal chest obtained at 3:07 p.m. FINDINGS: There is cardiomegaly. There is mild central vascular congestion. There is no new consolidation or pneumothorax or pleural fluid. IMPRESSION: Cardiomegaly and central vascular congestion appearing similar to the prior study of yesterday. No new abnormality. 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 Nitro drip started by Dr Jorge (2) Unstable angina Status: Acute Assessment & Plan: See Above (3) Transfusion-dependent anemia Status: Chronic Assessment & Plan: - Consult for Dr Field who is the patient's grain receiver, concerns for anticoagulation needs after stent placement. 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 (5) Atrial fibrillation Status: Chronic Assessment & Plan: - NSR today, patient not candidate for anticoagulation due to transfusion dependent anemia Qualifiers: Qualified Codes: I48.0 - Paroxysmal atrial fibrillation (6) Hypothyroidism Status: Chronic Assessment & Plan: - Continue home meds Qualifiers: Qualified Codes: E03.9 - Hypothyroidism, unspecified (7) Hypertension Status: Chronic Assessment & Plan: - Continue home meds Qualifiers: Qualified Codes: I10 - Essential (primary) hypertension (8) Type 2 diabetes mellitus with hyperglycemia Status: Chronic Assessment & Plan: - SSI, holding po meds due to need for contrast Qualifiers: Qualified Codes: E11.65 - Type 2 diabetes mellitus with hyperglycemia Supervisory-Addendum Brief Supervisory Addendum Notes: Agree with above documentation by Mode [place] MS4 I performed exam and evaluation of above patient [facility] MED[facility] STUDENT Feb 11, 2018 11:34 am JAMES TORRES MD Feb 11, 2018 2:48 pm
[2018-02-11 12:55] LABS: HEMOGLOBIN 8.1 G/DL (11.5-16.0)
[2018-02-11] MEDS: NITRO DRIP 25000 MCG/D5W 250 ML IV SCH (14:51)
[2018-02-11] MEDS ORDERED: NITRO DRIP 25000 MCG/D5W 250 ML IV SCH (15:00)
[2018-02-11] MEDS: PANTOPRAZOLE 40 MG (PROTONIX) TAB PO SCH (16:06)
--- NOTE | 2018-02-11 18:45 | CONSULTATION REPORT ---
DATE OF SERVICE: 02/11/2018 The patient is admitted to ICU bed wallace. IMPRESSION: 1. A 62-year-old female admitted with chest pain and shortness of breath and found to have non-Q-wave myocardial infarction. 2. Chronic iron deficiency anemia due to GI bleeding since 2013. 3. Status post parenteral iron therapy initially, but since 07/2016 the patient has required more than 40 units of packed red blood cell transfusion as well as parenteral iron therapy every one to two months. 4. History of bright red blood per rectum prior to admission and a chronic intermittent melena indicating ongoing GI bleeding. 5. Previous GI workup included EGD and colonoscopy in 07/2017 and 12/2016. Capsule endoscopy in 03/2017. RECOMMENDATIONS: 1. This is a very complicated case and I have discussed this with Dr. Jorge. If the patient has worsening troponin levels, she will need a cardiac catheterization for further evaluation. If she needs a stent placement, I would recommend a bare metal stent as the anticoagulation could be stopped in a month rather than a year for a drug-eluting stent. The patient is having significant GI bleeding even without any anticoagulation and any amount of anticoagulation will worsen this. 2. Agree with the PRBC transfusion to maintain the hemoglobin level more than 8 grams per deciliter because of her cardiac history. 3. I had advised the patient to go to a tertiary center for a GI evaluation and any recommendations to slow down the chronic bleeding, but the patient had refused workup after going to [facility]. 4. I will follow the patient with you. BRIEF HISTORY: The patient is a 62-year-old female who was admitted to the hospital last night with worsening chest pain. Earlier she had noticed fresh blood in her stools and has had chronic melena. She was also found to be anemic and was scheduled to have packed red blood cell transfusion on an outpatient basis. She had received parenteral iron therapy earlier in the week because of worsening anemia and iron deficiency. Initial evaluation after her admission was negative, but the troponin level had increased today morning. This raised the need for cardiac evaluation and probable cardiac catheterization. Because of her ongoing GI bleeding, anticoagulation was felt to be a problem. A hematology consultation was requested for further recommendations. PAST MEDICAL HISTORY: Significant for chronic GI bleeding for the past several years. The patient has required intermittent parenteral iron therapies since 2013. She developed coronary artery disease with ID in the past requiring a stent placement and anticoagulation. This significantly worsened GI bleeding and she was requiring PRBC transfusion as well as parenteral iron therapy much more frequently. She also developed atrial fibrillation and was started on anticoagulation for stroke prophylaxis which again worsened with GI bleeding with eventual discontinuation. More recently, she was having continued GI bleed in spite of no anticoagulation including aspirin use or any other nonsteroidal use. She also has diabetes mellitus type 2 for a long time and has very poor control. PAST MEDICAL HISTORY: Hypertension, morbid obesity and chronic osteoarthritis. PAST SURGICAL HISTORY: Include tonsillectomy and adenoidectomy in the distant past, tubal ligations, left ankle surgery and reconstruction as well as a knee arthroscopy. She has had multiple EGDs and colonoscopies with the last two in 07/2017 and 12/2016 as well as her last capsule endoscopy in 03/2017. SOCIAL HISTORY: The patient is and lives near [place], [place]. 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 She has a history of tobacco use for 10 years, but quit in 1981. She has used alcohol socially in the past and denied using alcohol recently. No history of recreational drug use. FAMILY HISTORY: Significant for coronary artery disease, diabetes mellitus and hypercholesterolemia in her mother. One sister with breast cancer and another sister with an unknown malignancy. Father was also diagnosed with a malignancy, but she does not know the details. Another sister with coronary artery disease, hypertension and hyperlipidemia. Brother with an unknown malignancy. Another brother with coronary artery disease and hypertension. Paternal grandmother with colon cancer and paternal grandfather with an unknown malignancy. PHYSICAL EXAMINATION: GENERAL: Today showed an elderly female, weak appearing, awake and answering questions fairly, in mild discomfort due to the chest pain. VITAL SIGNS: She was afebrile, pulse rate of 112, respirations 19, blood pressure 163/66, pulse oximetry with oxygen saturation 96% on 3 liters of oxygen by nasal cannula. HEENT: Normocephalic, extraocular muscles intact, conjunctivae slightly pale, oral mucosa moist. NECK: Supple, with no JVD. No cervical, supraclavicular or axillary lymphadenopathy palpable. CHEST: Symmetrical. LUNGS: Fairly clear to auscultation without wheezes or rales. CARDIOVASCULAR: Tachycardic, regular in rate and rhythm with a grade II holosystolic murmur. ABDOMEN: Obese, soft, nontender with no hepatosplenomegaly or other masses palpable. EXTREMITIES: Showed no edema, petechiae or ecchymosis. NEUROLOGIC: Grossly intact without focal motor deficits. LABORATORY DATA: CBC done last night at the time of admission showed a white count of 5.1, hemoglobin 6.6 with MCV 97 and an RDW of 17.2, platelet count 161,000, neutrophil count 3.4 and lymphocyte count 0.8. CBC today morning after transfusion of 1 unit of blood showed hemoglobin level of 7.3 and repeated at 12:49 p.m. showed a hemoglobin level of 8.1 after the second unit of packed red blood cell transfusion. Chemistry panel showed she has had a chemistry panel done today morning showed normal electrolytes. BUN was 24 and creatinine 1.3 with GFR 42 mL per minute, glucose was 438. Liver function studies were within normal limits. Serum magnesium level was below normal at 1.6. Initial troponin readings were less than 0.3, but at 12:49 p.m. today, her troponin was 0.35. Chest x-ray done today showed cardiomegaly and central vascular congestion appearing similar to the previous study. No new abnormalities noted. Thank you for allowing me to participate in this patient's care. I will follow the patient with you and make appropriate recommendations. Job ID: [id number] DocumentID: [id number] Dictated Date: 02/11/2018 17:38:10 Weaving Supervisor Date: 02/11/2018 18:45:29 Dictated By: SHIREEN AGARWAL MD [facility]
[2018-02-11] MEDS ORDERED: inSUlin DETERMIR 1 UNIT/0.01 ML (LEVEMIR) CHARGE PER UNIT SQ SCH (21:00)
[2018-02-12] VITALS (46 sets, daily range): BP systolic 95–162; BP diastolic 42–97
[2018-02-12] MEDS: NITROGLYCERIN 2% OINT 1 GM UNIT DOSE PACKET TOP SCH ×3 (00:01→12:47)
[2018-02-12] MEDS: morphine INJ 4 MG/ML 1 ML (VIAL/SYRINGE) IV PRN ×4 (00:28→06:42)
[2018-02-12] MEDS: ONDANSETRON 4 MG/2 ML (SDV) Z0FRAN IVP PRN (00:28)
[2018-02-12] MEDS ORDERED: DILTIAZEM 25 MG/5 ML INJ (CARDIZEM) VIAL IVP ONE ×2 (05:38→05:45)
[2018-02-12] MEDS ORDERED: D5W 100 ML IVPB 100 ML IV ONE (05:47)
[2018-02-12] MEDS ORDERED: DILTIAZEM 125 MG/25 ML IV (CARDIZEM) IV ONE (05:48)
[2018-02-12] MEDS ORDERED: D5W IV SOLUTION (EXCEL) 250 ML IV ONE (06:06)
[2018-02-12] MEDS ORDERED: AMIODARONE 450 MG/9 ML (CORDARONE) VIAL IV ONE (06:07)
[2018-02-12] MEDS ORDERED: AMIODARONE FOR BOLUS 150 MG in D5W 100 ML IVPB 100 ML IV ONE ×2 (06:11→06:30)
[2018-02-12] MEDS ORDERED: LEVOTHYROXINE 125 MCG (LEVOTHROID) TABLET PO SCH (06:30)
[2018-02-12] MEDS ORDERED: LEVOTHYROXINE 50 MCG (LEVOTHROID) TAB PO SCH (06:30)
[2018-02-12] MEDS: PANTOPRAZOLE 40 MG (PROTONIX) TAB PO SCH ×2 (06:43→16:17)
[2018-02-12] MEDS ORDERED: AMIODARONE 150 MG/3 ML (CORDARONE) AMP IV ONE (06:46)
[2018-02-12 06:47] LABS: BASOPHILS % (AUTO) 0 % (0-10); EOSINOPHILS % (AUTO) 0 % (0-10); HEMATOCRIT 25 % (35-52); HEMOGLOBIN 8.1 G/DL (11.5-16.0); LYMPHOCYTES # (AUTO) 1.1 X 10^3 (1.0-4.0); LYMPHOCYTES % (AUTO) 9 % (12-44); MEAN CORPUSCULAR HEMOGLOBIN 31 PG (25-34); MEAN CORPUSCULAR HGB CONC 32 G/DL (32-36); MEAN CORPUSCULAR VOLUME 97 FL (80-99); MEAN PLATELET VOLUME 10.1 FL (7.4-10.4); MONOCYTES # (AUTO) 1.4 X 10^3 (0.0-1.0); MONOCYTES % (AUTO) 12 % (0-12); NEUTROPHILS # (AUTO) 9.5 X 10^3 (1.8-7.8); NEUTROPHILS % (AUTO) 79 % (42-75); PLATELET COUNT 158 10^3/uL (130-400); RED CELL DISTRIBUTION WIDTH 17.2 % (10.0-14.5); WHITE BLOOD COUNT 12.1 10^3/uL (4.3-11.0)
[2018-02-12] MEDS ORDERED: HEParin (CENTRAL IV FLUSH) 500 UNIT/5 ML SYR ONE (06:53)
[2018-02-12] MEDS ORDERED: 0.9% SODIUM CHLORIDE PF INJ 20 ML VIAL ONE (06:53)
[2018-02-12] MEDS ORDERED: BUPIVACAINE 0.25% 30 ML (SENSORCAINE) VIAL ONE (06:54)
[2018-02-12] MEDS ORDERED: LIDOCAINE 1% INJ 20 ML 20 ML VIAL ONE ×3 (06:54→12:09)
[2018-02-12] MEDS ORDERED: PROPOFOL INJECTION 0 ML IV ONE (06:57)
[2018-02-12] MEDS ORDERED: MIDAZOLAM 2 MG/2 ML (VERSED) VIAL ONE (06:58)
[2018-02-12] MEDS ORDERED: fentaNYL INJECTION 100 MCG/2 ML AMP ONE ×2 (06:58→11:29)
[2018-02-12 07:11] LABS: ALBUMIN 3.5 GM/DL (3.2-4.5); CALCIUM 9.4 MG/DL (8.5-10.1); CREATININE SERUM 1.18 MG/DL (0.60-1.30); POTASSIUM 4.6 MMOL/L (3.6-5.0); TOTAL PROTEIN 6.9 GM/DL (6.4-8.2)
[2018-02-12] MEDS: KCL 20 MEQ TAB (K-DUR) PO SCH (08:15)
[2018-02-12] MEDS: MAGNESIUM 1 GM/100 ML IVPB 100 ML IV SCH ×3 (08:15→09:41)
[2018-02-12] MEDS: POTASSIUM CL 10MEQ/50ML IVPB 50 ML IV SCH (08:15)
[2018-02-12] MEDS: AMIODARONE INJECTION 450 MG in D5W IV SOLUTION (EXCEL) 250 ML IV SCH ×2 (08:17→15:51)
[2018-02-12] MEDS: inSUlin ASPART (NovoLOG) 1 UNIT/0.01 ML (CHARGE PER UNIT) SC SCH ×3 (08:34→16:17)
[2018-02-12] MEDS ORDERED: ENALAPRIL 10 MG (VASOTEC) TAB PO SCH (09:00)
--- NOTE | 2018-02-12 10:16 | Cardiology Progress Note ---
Cardiology SOAP Progress Note Subjective: Recurrent chest pain, refractory to nitroglycerin infusion. Objective: I&O/Vital Signs 02/11/18 02/11/18 02/11/18 02/11/18 22:30 22:43 22:45 23:00 Pulse 112 114 114 Resp 15 16 17 B/P (MAP) 135/54 (81) 138/51 (80) 141/52 (81) Pulse Ox 95 95 97 O2 Delivery Nasal Cannula Nasal Cannula Nasal Cannula Nasal Cannula O2 Flow Rate 3.00 3.00 3.00 3.00 02/11/18 02/11/18 02/11/18 02/12/18 23:15 23:30 23:45 00:00 Pulse 112 117 113 113 Resp 20 23 20 17 B/P (MAP) 136/52 (80) 139/54 (82) 134/53 (80) 129/55 (79) Pulse Ox 95 96 96 97 O2 Delivery Nasal Cannula Nasal Cannula Nasal Cannula Nasal Cannula O2 Flow Rate 3.00 3.00 3.00 3.00 02/12/18 02/12/18 02/12/18 02/12/18 00:00 00:00 00:15 00:30 Temp 99.4 Pulse 115 114 Resp 18 16 B/P (MAP) 135/50 (78) 131/53 (79) Pulse Ox 95 93 O2 Delivery Nasal Cannula Nasal Cannula Nasal Cannula O2 Flow Rate 3.00 3.00 4.00 02/12/18 02/12/18 02/12/18 02/12/18 00:45 01:00 01:00 01:15 Pulse 116 118 117 121 Resp 16 21 16 B/P (MAP) 131/47 (75) 130/56 (80) 129/51 (77) Pulse Ox 94 96 95 O2 Delivery Nasal Cannula Nasal Cannula Nasal Cannula O2 Flow Rate 4.00 4.00 4.00 02/12/18 02/12/18 02/12/18 02/12/18 01:30 01:45 02:00 02:15 Pulse 122 124 121 123 Resp 12 15 16 19 B/P (MAP) 129/52 (77) 131/58 (82) 132/52 (78) 132/42 (72) Pulse Ox 96 97 95 98 O2 Delivery Nasal Cannula Nasal Cannula Nasal Cannula Nasal Cannula O2 Flow Rate 4.00 4.00 4.00 4.00 02/12/18 02/12/18 02/12/18 02/12/18 02:30 02:45 03:00 03:15 Pulse 130 123 123 123 Resp 15 16 14 8 B/P (MAP) 131/52 (78) 109/90 (96) 142/87 (105) Pulse Ox 95 94 96 96 O2 Delivery Nasal Cannula Nasal Cannula Nasal Cannula Nasal Cannula O2 Flow Rate 4.00 4.00 4.00 4.00 02/12/18 02/12/18 02/12/18 02/12/18 03:30 03:45 04:00 04:00 Pulse 122 126 123 Resp 17 17 28 B/P (MAP) 146/92 (110) 162/71 (101) 160/68 (98) Pulse Ox 94 98 98 O2 Delivery Nasal Cannula Nasal Cannula Nasal Cannula Nasal Cannula O2 Flow Rate 4.00 4.00 4.00 3.00 02/12/18 02/12/18 02/12/18 02/12/18 04:15 04:30 04:45 05:00 Pulse 124 121 122 123 Resp 18 15 17 15 B/P (MAP) 156/69 (98) 156/58 (90) 155/60 (91) 155/62 (93) Pulse Ox 98 94 95 96 O2 Delivery Nasal Cannula Nasal Cannula Nasal Cannula Nasal Cannula O2 Flow Rate 4.00 4.00 4.00 4.00 02/12/18 02/12/18 02/12/18 02/12/18 05:15 05:30 05:45 06:00 Pulse 122 121 176 146 Resp 21 15 13 18 B/P (MAP) 156/62 (93) 156/61 (92) 134/83 (100) 135/62 (86) Pulse Ox 96 97 99 95 O2 Delivery Nasal Cannula Nasal Cannula Nasal Cannula Nasal Cannula O2 Flow Rate 4.00 4.00 4.00 4.00 02/12/18 02/12/18 02/12/18 02/12/18 06:15 06:30 06:45 07:00 Pulse 147 166 153 147 Resp 16 18 21 B/P (MAP) 122/76 (91) 108/46 (66) 104/85 (91) Pulse Ox 93 95 93 O2 Delivery Nasal Cannula Nasal Cannula Nasal Cannula O2 Flow Rate 4.00 4.00 4.00 02/12/18 02/12/18 02/12/18 02/12/18 07:00 07:50 08:00 09:00 Pulse 147 108 108 112 Resp 20 14 18 B/P (MAP) 110/57 (74) 126/60 (82) 136/60 (85) Pulse Ox 93 97 97 O2 Delivery Nasal Cannula Nasal Cannula Nasal Cannula O2 Flow Rate 4.00 4.00 4.00 02/12/18 00:00 Intake Total 150 ml Output Total 675 ml Balance -525 ml Weight (Pounds): 253 Weight (Ounces): 1.0 Weight (Calculated Kilograms): [id number] Constitutional: appears stated age, AAO x 3; No apparent distress; well- developed, well-nourished Respiratory: No accessory muscle use, No respiratory distress, No chest tender , No chest expansion is symmetric; chest is bilaterally symmetric; No lungs clear to percussion; lungs clear to auscultation; No crackles, No rhonchi, No rales, No stridor, No wheezing, No pleural rub, No other Cardiovascular: regular rate-rhythm; No irregularly irregular, No extra beats, No parasternal heave is noted, No JVD, No edema, No bradycardia, No tachycardia , No point of maximal impulse, No cardiac thrills are palpable; S1 and S2; No gallop/S3, No gallop/S4, No diastolic murmur, No systolic murmur, No friction rub, No click, No other Gastrointestional: No tender, No soft, No round, No distended, No pulsatile mass, No organomegaly, No guarding, No rebound, No tenderness, No hernia, No mass, No audible bowel sounds, No abnormal bowel sounds, No abdominal bruits, No spleenomegaly, No other Extremities: No normal range of motion, No non-tender, No normal inspection, No pedal edema, No calf tenderness, No normal capillary refill, No pelvis stable , No calf tenderness, No inflammation, No pedal edema, No slow capillary refill , No swelling, No other, No abrasion, No clubbing, No cyanosis, No ecchymosis, No laceration, No no lower extremity edema bilateral, No significant edema, No tenderness, No wound Neurologic/Psychiatric: no motor/sensory deficits, alert, normal mood/affect, oriented x 3, power is 5/5 both on sides Skin: No normal color, No warm/dry, No cyanosis, No cool, No diaphoresis, No damp, No ecchymosis, No jaundice, No mottled, No pallor, No rash, No tattoos/ piercings, No ulcerations, No rash on exposed areas, No ulcerations on exposed areas, No other Results/Procedures: Labs Laboratory Tests 02/11/18 12:49: Hemoglobin 8.1L, Hematocrit 25L, Troponin I 0.35*H 02/11/18 15:59: Glucometer 228H 02/11/18 16:51: Lab Scanned Report Transfusion Reaction Form 02/11/18 20:00: Glucometer 138H 02/12/18 06:30: White Blood Count 12.1H, Red Blood Count 2.60L, Hemoglobin 8.1L, Hematocrit 25L , Mean Corpuscular Volume 97, Mean Corpuscular Hemoglobin 31, Mean Corpuscular Hemoglobin Concent 32, Red Cell Distribution Width 17.2H, Platelet Count 158, Mean Platelet Volume 10.1, Neutrophils (%) (Auto) 79H, Lymphocytes (%) (Auto) 9L , Monocytes (%) (Auto) 12, Eosinophils (%) (Auto) 0, Basophils (%) (Auto) 0, Neutrophils # (Auto) 9.5H, Lymphocytes # (Auto) 1.1, Monocytes # (Auto) 1.4H, Eosinophils # (Auto) 0.0, Basophils # (Auto) 0.0, Sodium Level 133L, Potassium Level 4.6, Chloride Level 101, Carbon Dioxide Level 22, Anion Gap 10, Blood Urea Nitrogen 17, Creatinine 1.18, Estimat Glomerular Filtration Rate 47, BUN/ Creatinine Ratio 14, Glucose Level 282H, Calcium Level 9.4, Corrected Calcium 9.8, Total Bilirubin 1.0, Aspartate Amino Transf (AST/SGOT) 27, Alanine Aminotransferase (ALT/SGPT) 11, Alkaline Phosphatase 62, Troponin I 0.40*H, Total Protein 6.9, Albumin 3.5 Microbiology 02/11/18 MRSA Screen - Final, Complete A/P: Assessment/Dx: Non-STEMI, previous history of CAD, Chest pain refractory to nitroglycerin infusion, Diabetes, Severe anemia, history of chronic GI bleeding, Hypertension, Hyperlipidemia, in tolerant to statins. Plan: Non-STEMI likely due to severe anemia, however, ACS due to obstructed CAD and plaque rupture cannot be ruled out. Hemoglobin 6.4. Was given 2 units and hemoglobin is still 8.1. Has history of chronic GI bleeding. Was not on any oral antiplatelet agents. She is also statin intolerant. Therefore she was only on enalapril. Her LDL is 118. She is a complicated patient. She does have history of obstructive CAD with at least 1 PCI. I have discussed at length with Dr. Wilson and Dr Grace. The patient has chronic GI bleeding with positive stool for occult blood. Therefore she is at high risk for bleeding worsening with dual antiplatelet therapy and heparin. However the patient has positive troponins with upward trend and continuous chest pain which is refractory to nitroglycerin infusion. I have discussed at length with the patient in presence of the nurse and discussed at length the risk of bleeding and other complications if we performed coronary angiography and possible intervention. She initially wanted to think about it but after a couple of hours she wants to go ahead and proceed with coronary angiography and possible intervention. Her previous coronary angiography was done by Dr. Sosa in January 2017 which showed moderate distal left main disease, moderate LAD, left circumflex artery disease. Moderate in- stent restenosis in the RCA. If the patient has worsening left main disease she may be a candidate for surgery and certainly PCI may not be the best approach since we will need drug-eluting stents and prolonged dual antiplatelet therapy. Prolonged dual antiplatelet therapy may be contraindicated in this patient. If we find focal disease not in the left main, we will consider bare metal stent which will require dual antiplatelet therapy for one month. All of this was discussed with Dr. Grace as well as with the patient. Echocardiogram shows normal LV function. The patient is on aspirin, nitroglycerin infusion. Patient is intolerant to statins. She could not afford PCK9 Inhibitors. Coronary angiography this afternoon. Thank you for your consultation. Please call me if you have any questions. Estela Jorge MD, FACP, FACC, FSCAI, FHRS, CCDS Interventional Cardiology Cardiac Electrophysiology Vascular Medicine and Endovascular Interventions Clinical Quality Measures AMI/AHF: ASA po Prior to arrival: Wei Wilkins MD Feb 12, 2018 10:15 am
[2018-02-12] MEDS: NITRO DRIP 25000 MCG/D5W 250 ML IV SCH (11:09)
--- NOTE | 2018-02-12 11:10 | Progress Note (SOAP) ---
[facility] ST[facility] 02/12/18 1110: Subjective Subjective/Events-last exam Pt reports to have not been able to sleep d/t her pain. She reports that she was able to feel the A fib event with RVR that occurred earlier this morning. She had no acute concerns. Review of Systems Time Seen by Provider: 10:00 General: No Chills, No Night Sweats Pulmonary: No Dyspnea Cardiovascular: Chest Pain, Edema Gastrointestinal: No: Nausea, Vomiting, Abdominal Pain Objective Exam Last Set of Vital Signs Vital Signs Date Time Temp Pulse Resp B/P (MAP) Pulse Ox O2 Delivery O2 Flow Rate FiO2 02/12/18 10:00 108 22 112/97 (102) 98 Nasal Cannula 4.00 02/12/18 09:30 98.2 Capillary Refill : Less Than 3 Seconds I&O Intake and Output 02/11/18 23:59 Intake Total 400 ml Output Total 3850 ml Balance -3450 ml Intake Oral 200 ml IV Total 200 ml Output Urine Total 3825 ml Emesis 25 ml Daily Weight Change Yes, Unsure # of pounds General: Cooperative, No Acute Distress HEENT: Atraumatic, EOMI, Mucous Memb Moist/Aiken Lungs: Clear to Auscultation, Normal Air Movement Heart: Regular Rate, Normal S1, Normal S2, Other (slight flow murmur appreciated) Abdomen: Normal Bowel Sounds, Soft, No Tenderness Extremities: Normal Pulses, Other (BL LE edema 1-2+) Results/Procedures Lab Laboratory Tests 02/11/18 12:49: Hemoglobin 8.1L, Hematocrit 25L, Troponin I 0.35*H 02/11/18 15:59: Glucometer 228H 02/11/18 16:51: Lab Scanned Report Transfusion Reaction Form 02/11/18 20:00: Glucometer 138H 02/12/18 06:30: White Blood Count 12.1H, Red Blood Count 2.60L, Hemoglobin 8.1L, Hematocrit 25L , Mean Corpuscular Volume 97, Mean Corpuscular Hemoglobin 31, Mean Corpuscular Hemoglobin Concent 32, Red Cell Distribution Width 17.2H, Platelet Count 158, Mean Platelet Volume 10.1, Neutrophils (%) (Auto) 79H, Lymphocytes (%) (Auto) 9L , Monocytes (%) (Auto) 12, Eosinophils (%) (Auto) 0, Basophils (%) (Auto) 0, Neutrophils # (Auto) 9.5H, Lymphocytes # (Auto) 1.1, Monocytes # (Auto) 1.4H, Eosinophils # (Auto) 0.0, Basophils # (Auto) 0.0, Sodium Level 133L, Potassium Level 4.6, Chloride Level 101, Carbon Dioxide Level 22, Anion Gap 10, Blood Urea Nitrogen 17, Creatinine 1.18, Estimat Glomerular Filtration Rate 47, BUN/ Creatinine Ratio 14, Glucose Level 282H, Calcium Level 9.4, Corrected Calcium 9.8, Total Bilirubin 1.0, Aspartate Amino Transf (AST/SGOT) 27, Alanine Aminotransferase (ALT/SGPT) 11, Alkaline Phosphatase 62, Troponin I 0.40*H, Total Protein 6.9, Albumin 3.5 Microbiology 02/11/18 MRSA Screen - Final, Complete Radiology Date of Exam: 02/11/18 CHEST 1 VIEW, AP/PA ONLY INDICATION: Dyspnea. Frontal chest obtained at 3:07 p.m. FINDINGS: There is cardiomegaly. There is mild central vascular congestion. There is no new consolidation or pneumothorax or pleural fluid. IMPRESSION: Cardiomegaly and central vascular congestion appearing similar to the prior study of yesterday. No new abnormality. Assessment/Plan Assessment/Plan Assessment & Plan Ms. Fields is a 62 yo F with a PMH of CHF, A fib, DM, HTN, HLD, cardiac stent x1 , chronic anemia d/t GI bleed, hypothyroid who presented with chest pain. 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, lasix, folic acid A fib w/ RVR -Pt went into a fib w/ RVR morning of 02/12 >amiodarone DM -hold ROLLER MILL OPERATOR meds >LDCF Hypothyroid >cont ROLLER MILL OPERATOR synthroid Chronic pain >Continue ROLLER MILL OPERATOR tizanidine and tramadol (1) NSTEMI (non-ST elevated myocardial infarction) Status: Acute (2) Unstable angina Status: Acute (3) Transfusion-dependent anemia Status: Chronic 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 (5) Atrial fibrillation Status: Chronic Qualifiers: Qualified Codes: I48.0 - Paroxysmal atrial fibrillation (6) Hypothyroidism Status: Chronic Qualifiers: Qualified Codes: E03.9 - Hypothyroidism, unspecified (7) Hypertension Status: Chronic Qualifiers: Qualified Codes: I10 - Essential (primary) hypertension (8) Type 2 diabetes mellitus with hyperglycemia Status: Chronic Qualifiers: Qualified Codes: E11.65 - Type 2 diabetes mellitus with hyperglycemia Clinical Quality Measures AMI/AHF: ASA po Prior to arrival: No DVT/VTE Risk/Contraindication: Risk Factor Score Per Nursin RFS Level Per Nursing on Admit: 4+=Very High JAMES TORRES MD 02/12/18 1456: Subjective Subjective/Events-last exam Patient states that she still is experiencing chest pain. She went into Afib with RVR this AM and now is on Amiodarone drip. Patient continues to have shortness of breath and complains of worsening fatigue Review of Systems Date Seen by Provider: Feb 12, 2018 Objective Exam General: Alert, Oriented X3, Cooperative, No Acute Distress HEENT: Mucous Memb Moist/Aiken Lungs: Clear to Auscultation, Normal Air Movement Heart: Regular Rate, Other (slight flow murmur appreciated) Abdomen: Normal Bowel Sounds, Soft, No Tenderness Extremities: Normal Pulses, Other (BL LE edema 1-2+) Psych/Mental Status: Mental Status NL, Other (anxious) Assessment/Plan Assessment/Plan Assessment & Plan 62 yo F with Unstable angina and transfusion dependent anemia Unstable Angina: Trop continues to increase. Spoke with Dr Jorge and patient will go to Cath later today. Patient continues to have chest pain even on nitro drip. After cath Dr Jorge and Dr Field discussed patient's disease in LAD and decision to transfer patient to tertiary care center was made. Plan to Transfer to since patient has been seen there for anemia in the past and they are familiar with her case. Atrial Fibrillation with RVR: Patient continues to require Amiodarone drip. Transfusion dependent Anemia: Dr Field following and engaged in patient's care. She has received 2 units pRBCs NIDDM: Patient on SSI due to labile blood sugars and NPO status Dispo: Plan to transfer patient to Patient seen and examined with Mode [place], [facility] [place] [facility] STUDENT Feb 12, 2018 11:10 JAMES TORRES MD Feb 12, 2018 14:56
[2018-02-12] MEDS ORDERED: MIDAZOLAM 5 MG/5 ML (VERSED) VIAL ONE (11:29)
[2018-02-12] MEDS ORDERED: NS IV 1000 ML 1,000 ML ONE (11:29)
[2018-02-12] MEDS ORDERED: NS IV 1000 ML 2,000 ML ONE (11:31)
[2018-02-12] MEDS ORDERED: HEParin 1000 UNIT/ML (10ML VIAL) FOR BOLUS ONE (11:31)
[2018-02-12] MEDS ORDERED: ONDANSETRON 4 MG/2 ML (SDV) Z0FRAN ONE (11:51)
[2018-02-12] MEDS ORDERED: NITRO DRIP 25000 MCG/D5W 250 ML IV ONE (12:17)
[2018-02-12] MEDS ORDERED: VERAPAMIL 5 MG/2 ML (CALAN) VIAL IV ONE ×2 (12:17→12:19)
[2018-02-12] MEDS ORDERED: FUROSEMIDE 40 MG/4 ML INJ (LASIX) ONE (12:42)
--- NOTE | 2018-02-12 12:57 | Coronary Angiography Report ---
Coronary Angiography Report DATE OF PROCEDURE: 02/12/18 INDICATION: Non-STEMI PREOPERATIVE DIAGNOSIS: Non-STEMI POSTOPERATIVE DIAGNOSIS: Severe distal left main disease, acute diastolic heart failure. HISTORY: This is a 62-year-old lady who i see in my office regularly as well. She has history of congestive heart failure, paroxysmal atrial fibrillation, diabetes, hypertension, hyperlipidemia, previous history of PCI, chronic anemia with multifactorial etiologies including possible GI bleeding, hypothyroidism. She presents with prolonged episode of chest pain. She has been having on and off pain for a few days. However she's been having continuous pain last night. It is radiating to her left shoulder and left arm. There was one episode of vomiting and there is associated nausea. She did not take nitroglycerin. She also complains of shortness of breath and lower extremity swelling. On admission her pain was severe with 10/10 intensity. However when I saw the patient she was not having any chest pain. But has had off-and-on chest pain since admission. She was found to have an hemoglobin of 6.4. She was given one dose of aspirin but was not given any further antiplatelet or antithrombotic agent due to severe anemia and history of chronic GI bleeding. The patient also has had statin intolerance. Positive troponins, working diagnosis non-ST elevation OR, episode of atrial fibrillation with RVR, conversion with amiodarone. Currently in sinus rhythm. The patient continued to have chest pain on nitroglycerin infusion. Therefore, the patient was scheduled for coronary angiography. PROCEDURES PERFORMED: 1.Coronary angiography. 2.Left heart catheterization. COMPLICATIONS: None. SPECIMENS: None. ESTIMATED BLOOD LOSS: 10 mL ANESTHESIA: Conscious sedation ANTICOAGULATION: IV heparin 3000 units. CONTRAST: 71 mL. FLUOROSCOPY: 5.5 min. FLOUROSCOPY DOSE: [id number] [id number]. PROCEDURE DETAILS: The patient is a 62 female and was brought to the supervisor labor gang after informed consent was taken. All the risks and complications were explained in detail; this included the risk of bleeding, vascular damage, stroke , OR and even . The patient was draped and prepped in the usual sterile fashion. Access was gained in the right radial artery with a 6 Dutch sheath. Coronary angiography and left heart catheterization was performed with the Constantia catheter. FINDINGS: 1.Left main: Severe distal left main disease. Stenosis severity 80 percent. Haziness noted. 2.LAD: At least moderate ostial disease. Moderate mid disease as well. Transapical vessel. 3.Left circumflex artery: Severe ostial disease. Stenosis severity 80 percent. Haziness noted. Moderate to severe mid disease. Stenosis severity 70 percent. 4.RCA: Mild to moderate mid stenosis. Stenosis severity 50 percent. Moderate to severe distal disease. Stenosis severity 70 percent. 5.Left heart catheterization: Aortic pressure 104/52 mmHg. LV pressure 109/28 mmHg. LVEDP 39 mmHg. Normal LV function with no wall motion abnormalities. No gradient across the aortic valve. 6. Aortic arch angiogram: No evidence of dissection or aneurysm. Patent proximal segments of the great arteries including brachycephalic artery, common carotid artery and left subclavian artery. CONCLUSIONS: 1. Severe distal left main disease, severe ostial left circumflex artery stenosis, at least moderate mid LAD disease. Moderate to severe distal RCA stenosis. Cardiac surgery consultation is recommended. Patient will need to be transferred to a tertiary care center. 2. Acute diastolic heart failure: Given Lasix. 3. Chronic anemia with likely chronic GI loss. 4. Will discuss with Dr. Grace and Dr. Wilson. Estela Jorge MD, FACP, FACC, [facility] Interventional Cardiology Wei JORGE MD Feb 12, 2018 12:57 pm
[2018-02-12] MEDS ORDERED: NS IV 1000 ML 1,000 ML IV SCH (13:19)
--- NOTE | 2018-02-12 13:19 | Cardiology Discharge Summary ---
Diagnosis/Chief Complaint Date of Admission Feb 11, 2018 at 12:30 am Date of Discharge 02/12/2018 Admission Diagnosis Non-ST elevation MS, severe anemia Final/Discharge Diagnosis Non-ST elevation myocardial infarction, severe anemia due to likely chronic GI bleed, paroxysmal atrial fibrillation, acute diastolic heart failure. Chief Complaint/HPI Chief Complaint/HPI This is a 62-year-old lady who i see in my office regularly as well. She has history of congestive heart failure, paroxysmal atrial fibrillation, diabetes, hypertension, hyperlipidemia, previous history of PCI, chronic anemia with multifactorial etiologies including possible GI bleeding, hypothyroidism. She presents with prolonged episode of chest pain. She has been having on and off pain for a few days. However she's been having continuous pain last night. It is radiating to her left shoulder and left arm. There was one episode of vomiting and there is associated nausea. She did not take nitroglycerin. She also complains of shortness of breath and lower extremity swelling. On admission her pain was severe with 10/10 intensity. However when I saw the patient she was not having any chest pain. But has had off-and-on chest pain since admission. She was found to have an hemoglobin of 6.4. She was given one dose of aspirin but was not given any further antiplatelet or antithrombotic agent due to severe anemia and history of chronic GI bleeding. The patient also has had statin intolerance. Positive troponin, working diagnosis of non-ST elevation MS. Recurrent chest pain on IV nitroglycerin. Atrial fibrillation with rapid ventricular rate converted spontaneously on amiodarone. Currently in sinus rhythm. Discharge Summary Procedures Coronary angiography shows severe distal left main disease and three-vessel CAD. LVEDP 39 mmHg with normal LV function. Discharge Physical Examination Mild shortness of breath. Normal cardiac exam. Hospital Course 1. Anemia: 2-3 units of packed RBCs were given. Initial hemoglobin 6.1. Hemoglobin went up to 8. Likely chronic GI bleed. 2. Episode of atrial fibrillation with rapid ventricular rate. Conversion with amiodarone. Currently in sinus rhythm. 3. Recurrent chest pain refractory to nitroglycerin infusion. Coronary angiography showed severe left main disease and three-vessel nikolai disease. We 'll start low-dose IV heparin. Transfer for cardiac surgery consultation. 4. Acute diastolic congestive heart failure. LVEDP 39 mmHg. Normal LV function. Lasix IV given. Pending Labs Laboratory Tests 02/12/18 06:30: White Blood Count 12.1, Red Blood Count 2.60, Hemoglobin 8.1, Hematocrit 25, Mean Corpuscular Volume 97, Mean Corpuscular Hemoglobin 31, Mean Corpuscular Hemoglobin Concent 32, Red Cell Distribution Width 17.2, Platelet Count 158, Mean Platelet Volume 10.1, Neutrophils (%) (Auto) 79, Lymphocytes (%) (Auto) 9, Monocytes (%) (Auto) 12, Eosinophils (%) (Auto) 0, Basophils (%) (Auto) 0, Neutrophils # (Auto) 9.5, Lymphocytes # (Auto) 1.1, Monocytes # (Auto) 1.4, Eosinophils # (Auto) 0.0, Basophils # (Auto) 0.0, Sodium Level 133, Potassium Level 4.6, Chloride Level 101, Carbon Dioxide Level 22, Anion Gap 10, Blood Urea Nitrogen 17, Creatinine 1.18, Estimat Glomerular Filtration Rate 47, BUN/ Creatinine Ratio 14, Glucose Level 282, Calcium Level 9.4, Corrected Calcium 9.8 , Total Bilirubin 1.0, Aspartate Amino Transf (AST/SGOT) 27, Alanine Aminotransferase (ALT/SGPT) 11, Alkaline Phosphatase 62, Troponin I 0.40, Total Protein 6.9, Albumin 3.5 02/12/18 11:26: Glucometer 366 Discussion & Recommendations Discussion Discussed with the patient and family. Also discussed with Dr. Grace. Previously discussed with Dr. Wilson. Follow up appt.: Sanjay Brower and Ania Dicharge Diet: Cardiac Diet Activity as Tolerated: Yes Home Medications Reviewed patient Home Medication Reconciliation performed by pharmacy medication reconciliations paint laboratory technician and/or nursing. Patients Allergies have been reviewed. Discharge Home Medications: Reviewed and agree with Discharge Medication list on patient's Discharge Instruction sheet Condition at discharge Prognosis is guarded. Instructions to patient/family Discussed at length with the patient and family. Clinical Quality Measures AMI/AHF: ASA po Prior to arrival: No DVT/VTE Risk/Contraindication: Risk Factor Score Per Nursin RFS Level Per Nursing on Admit: 4+=Very High Wei ALCARAZ MD Feb 12, 2018 1:19 pm
[2018-02-12] MEDS ORDERED: HEParin DRIP 25000 UNIT/500ML 500 ML IV ONE (13:27)
[2018-02-12] MEDS ORDERED: PATIENT MAY USE OWN MEDS, ALL PO SCH (13:30)
[2018-02-12] MEDS ORDERED: HEParin 1000 UNIT/ML (10ML VIAL) FOR BOLUS IV SCH (13:45)
[2018-02-12] MEDS ORDERED: HEParin DRIP 25000 UNIT/500ML 500 ML IV SCH (13:45)
--- NOTE | 2018-02-12 15:37 | Consultation ---
History of Present Illness History of Present Illness Patient Consulted On(ken/time) 02/11/18 15:32 Date Seen by Provider: Feb 11, 2018 Time Seen by Provider: 15:32 History of Present Illness consult requested by dr Wilson for venous access Patient is a 62 year old female who began having chest pain. She has been anemic and was set for blood transfusion tomorrow. She was also scheduled for port placement tomorrow for poor venous access. She has had chronic GI bleed requiring as needed transfusion. Patient is having chest pain, that she has had on and off for couple weeks but continuous since yesterday. Radiates to left shoulder and down left arm. Severe pain. Has had nausea and emesis. Allergies and Home Medications Allergies Coded Allergies: Kngxruc-Yfh-Yrk Reductase Inhibitor (Verified Allergy, Intermediate, GI UPSET, N/V, 11/06/17) cefadroxil (Unverified Allergy, Mild, 01/01/17) diltiazem (Verified Allergy, Unknown, mouth burning and swelling, 02/23/17) Home Medications Cetirizine HCl 10 Mg Tablet, 10 MG PO DAILY, (Reported) Diphenhydramine HCl 25 Mg Capsule, 25 MG PO Q6H PRN for ALLERGIES, (Reported) Enalapril Maleate 5 Mg Tablet, 20 MG PO DAILY, (Reported) TAKES 4 (5MG) TABLETS Folic Acid 1 Mg Tablet, 1 MG PO DAILY, (Reported) Furosemide 20 Mg Tablet, 20 MG PO DAILY PRN for SWELLING, (Reported) Glimepiride 2 Mg Tablet, 2 MG PO BID, (Reported) Gluc 2Kcl/Chondr/Caty Hy/Hy AC 1 Each Capsule, 1 TAB PO BID, (Reported) Levothyroxine Sodium 175 Mcg Tablet, 175 MCG PO DAILY, (Reported) Metformin HCl 1,000 Mg Tablet, 1,000 MG PO BID WITH MEALS, (Reported) Nitroglycerin 0.4 Mg Tab.subl, 0.4 MG PO UD PRN for CHEST PAIN, (Reported) Omeprazole 40 Mg Capsule.dr, 40 MG PO BID, (Reported) Ondansetron HCl 8 Mg Tablet, 8 MG PO Q8H PRN for NAUSEA/VOMITING-1ST LINE, ( Reported) Tizanidine HCl 4 Mg Tablet, 4 MG PO TID PRN for MUSCLE SPASMS, (Reported) Tramadol HCl 50 Mg Tablet, 50 MG PO TID PRN for PAIN-MODERATE, (Reported) Patient Home Medication List Home Medication List Reviewed: Yes Past Hdjigow-Mgmlms-Gibktu Hx Patient Social History Alcohol Use: Denies Use Recreational Drug Use: No Smoking Status: Former Smoker Former Smoker, Quit: Jun 15, 1984 Type Used: Cigarettes Recent Foreign Travel: No Contact w/Someone Who Travel: No Recent Infectious Disease Expo: No Recent Hopitalizations: No Physical Abuse Screen: No Sexual Abuse: No Immunizations Up To Date Tetanus Booster (TDap): Unknown PED Vaccines UTD: Yes Date of Pneumonia Vaccine: Jun 23, 2016 Date of Influenza Vaccine: Mar 15, 2017 Seasonal Allergies Seasonal Allergies: Yes Surgeries History of Surgeries: Yes (L ANKLE REPAIR, L KNEE SCOPE X2; CARDIAC CATHS-- STENT X 1; EGD'S/COLONOSCOPIES/ POLYPECTOMY) Surgeries: Adenoidectomy, Cardiac, Coronary Stent, Orthopedic, Tonsillectomy, Tubal Ligation Respiratory History of Respiratory Disorde: No Cardiovascular History of Cardiac Disorders: Yes (CHF, STENT X1) Cardiac Disorders: Atrial Fibrillation, Chronic Edema/Swelling, Coronary Artery Disease, Heart Attack, High Cholesterol, Hypertension Neurological History of Neurological Disord: No Reproductive System : No Hx Reproductive Disorders: No Sexually Transmitted Disease: No HIV/AIDS: No Female Reproductive Disorders: Denies 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 Genitourinary History of Genitourinary Disor: Yes Genitourinary Disorders: Renal Failure Gastrointestinal History of Gastrointestinal Di: Yes (POSS GI BLEED-CHRONIC GI BLOOD LOSS; POLYP REMOVAL; GASTRITIS ) Gastrointestinal Disorders: Gastroesophageal Reflux, Gastrointestinal Bleed, Diverticulosis, Polyps Musculoskeletal History of Musculoskeletal Dis: Yes Musculoskeletal Disorders: Degenerate Disk Disease, Arthritis, Chronic Back Pain Endocrine History of Endocrine Disorders: Yes (OBESITY) Endocrine Disorders: Diabetes, Non-Insulin dep HEENT History of HEENT Disorders: No Loss of Vision: Denies Hearing Impairment: Denies Cancer History of Cancer: No Psychosocial History of Psychiatric Problem: No Integumentary History of Skin or Integumenta: Yes Skin/Integumentary Disorders: Psoriasis Blood Transfusions History of Blood Disorders: Yes (CHRONIC IRON DEFICIENCY ANEMIA--CHRONIC GI BLOOD LOSS) Adverse Reaction to a Blood Tr: Yes (Antibody JKA) Family Medical History Significant Family History: Hypertension, Stroke Family Medial History: Arthritis G8 BROTHER Completed stroke 19 MOTHER FH: anemia 19 MOTHER FH: lupus G8 SISTER FH: throat cancer 19 FATHER Hypertension G8 SISTER Myocardial infarction 19 MOTHER Thyroid disease 19 MOTHER G8 SISTER Review of Systems-General Constitutional: see HPI EENTM: no symptoms reported Respiratory: short of breath Cardiovascular: see HPI, chest pain Gastrointestinal: no symptoms reported Genitourinary: no symptoms reported Musculoskeletal: no symptoms reported Skin: no symptoms reported Psychiatric/Neurological: No Symptoms Reported Physical Exam-General Problems Physical Exam Vital Signs Vital Signs - First Documented Capillary Refill : Less Than 3 Seconds General Appearance: mild distress HEENT: PERRL/EOMI, normal ENT inspection Neck: supple Respiratory: no respiratory distress, no accessory muscle use Cardiovascular: regular rate, rhythm Gastrointestinal: non tender, soft Back: no CVA tenderness Extremities: non-tender, swelling 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, no motor/sensory deficits, alert, normal mood/affect, oriented x 3 Skin: warm/dry Lymphatic: no adenopathy Data Review Labs Laboratory Tests 02/11/18 15:59: Glucometer 228H 02/11/18 16:51: Lab Scanned Report Transfusion Reaction Form 02/11/18 20:00: Glucometer 138H 02/12/18 06:30: White Blood Count 12.1H, Red Blood Count 2.60L, Hemoglobin 8.1L, Hematocrit 25L , Mean Corpuscular Volume 97, Mean Corpuscular Hemoglobin 31, Mean Corpuscular Hemoglobin Concent 32, Red Cell Distribution Width 17.2H, Platelet Count 158, Mean Platelet Volume 10.1, Neutrophils (%) (Auto) 79H, Lymphocytes (%) (Auto) 9L , Monocytes (%) (Auto) 12, Eosinophils (%) (Auto) 0, Basophils (%) (Auto) 0, Neutrophils # (Auto) 9.5H, Lymphocytes # (Auto) 1.1, Monocytes # (Auto) 1.4H, Eosinophils # (Auto) 0.0, Basophils # (Auto) 0.0, Sodium Level 133L, Potassium Level 4.6, Chloride Level 101, Carbon Dioxide Level 22, Anion Gap 10, Blood Urea Nitrogen 17, Creatinine 1.18, Estimat Glomerular Filtration Rate 47, BUN/ Creatinine Ratio 14, Glucose Level 282H, Calcium Level 9.4, Corrected Calcium 9.8, Total Bilirubin 1.0, Aspartate Amino Transf (AST/SGOT) 27, Alanine Aminotransferase (ALT/SGPT) 11, Alkaline Phosphatase 62, Troponin I 0.40*H, Total Protein 6.9, Albumin 3.5 02/12/18 11:26: Glucometer 366H Microbiology 02/11/18 MRSA Screen - Final, Complete Assessment/Plan Assessment/Plan Assessment/Plan chest pain poor venous access chronic GI bleed Anemia secondary to GI bleed. Patient anemic and transfuse prn Cardiology consulted Patient with IV line at this time. Will get a picc or midline. Port is elective and will await further recommendations from cardiology, if cleared for port will place. Clinical Quality Measures AMI/AHF: ASA po Prior to arrival: No DVT/VTE Risk/Contraindication: Risk Factor Score Per Nursin RFS Level Per Nursing on Admit: 4+=Very High SABRINA ROSSI DO Feb 12, 2018 15:37
--- NOTE | 2018-02-12 15:49 | Progress Note ---
Subjective Date Seen by Provider: Feb 12, 2018 Time Seen by Provider: 10:51 Subjective/Events-last exam Patient still with chest pain. Patient needing another line but refused PICC line was nursing was able to discuss with her and have midline placed. Patient had discussion with Dr. Jorge and she reports not wanting to have heart cath. She overall no improvement from yesterday. Objective Exam Vital Signs Date Time Temp Pulse Resp B/P (MAP) Pulse Ox O2 Delivery O2 Flow Rate FiO2 02/12/18 14:00 97 15 110/51 (70) 100 Nasal Cannula 4.00 02/12/18 13:45 96 19 129/60 (83) Nasal Cannula 4.00 02/12/18 13:30 92 19 111/54 (73) 100 Nasal Cannula 4.00 02/12/18 13:18 98 02/12/18 13:15 97 119/60 (79) 96 Nasal Cannula 4.00 02/12/18 11:37 97.1 Nasal Cannula 4.00 02/12/18 11:09 100 16 105/45 98 Nasal Cannula 4.00 02/12/18 11:00 101 16 105/45 (65) 96 Nasal Cannula 4.00 02/12/18 10:00 108 22 112/97 (102) 98 Nasal Cannula 4.00 02/12/18 09:30 98.2 Nasal Cannula 4.00 02/12/18 09:00 112 18 136/60 (85) 97 Nasal Cannula 4.00 02/12/18 08:00 108 14 126/60 (82) 97 Nasal Cannula 4.00 02/12/18 07:50 108 02/12/18 07:00 147 20 110/57 (74) 93 Nasal Cannula 4.00 02/12/18 07:00 147 02/12/18 06:45 153 21 104/85 (91) 93 Nasal Cannula 4.00 02/12/18 06:30 166 18 108/46 (66) 95 Nasal Cannula 4.00 02/12/18 06:15 147 16 122/76 (91) 93 Nasal Cannula 4.00 02/12/18 06:00 146 18 135/62 (86) 95 Nasal Cannula 4.00 02/12/18 05:45 176 13 134/83 (100) 99 Nasal Cannula 4.00 02/12/18 05:30 121 15 156/61 (92) 97 Nasal Cannula 4.00 02/12/18 05:15 122 21 156/62 (93) 96 Nasal Cannula 4.00 02/12/18 05:00 123 15 155/62 (93) 96 Nasal Cannula 4.00 02/12/18 04:45 122 17 155/60 (91) 95 Nasal Cannula 4.00 02/12/18 04:30 121 15 156/58 (90) 94 Nasal Cannula 4.00 02/12/18 04:15 124 18 156/69 (98) 98 Nasal Cannula 4.00 02/12/18 04:00 Nasal Cannula 3.00 02/12/18 04:00 123 28 160/68 (98) 98 Nasal Cannula 4.00 02/12/18 03:45 126 17 162/71 (101) 98 Nasal Cannula 4.00 02/12/18 03:30 122 17 146/92 (110) 94 Nasal Cannula 4.00 02/12/18 03:15 123 8 142/87 (105) 96 Nasal Cannula 4.00 02/12/18 03:00 123 14 96 Nasal Cannula 4.00 02/12/18 02:45 123 16 109/90 (96) 94 Nasal Cannula 4.00 02/12/18 02:30 130 15 131/52 (78) 95 Nasal Cannula 4.00 02/12/18 02:15 123 19 132/42 (72) 98 Nasal Cannula 4.00 02/12/18 02:00 121 16 132/52 (78) 95 Nasal Cannula 4.00 02/12/18 01:45 124 15 131/58 (82) 97 Nasal Cannula 4.00 02/12/18 01:30 122 12 129/52 (77) 96 Nasal Cannula 4.00 02/12/18 01:15 121 16 129/51 (77) 95 Nasal Cannula 4.00 02/12/18 01:00 117 21 130/56 (80) 96 Nasal Cannula 4.00 02/12/18 01:00 118 02/12/18 00:45 116 16 131/47 (75) 94 Nasal Cannula 4.00 02/12/18 00:30 114 16 131/53 (79) 93 Nasal Cannula 4.00 02/12/18 00:15 115 18 135/50 (78) 95 Nasal Cannula 3.00 02/12/18 00:00 99.4 02/12/18 00:00 Nasal Cannula 3.00 02/12/18 00:00 113 17 129/55 (79) 97 Nasal Cannula 3.00 02/11/18 23:45 113 20 134/53 (80) 96 Nasal Cannula 3.00 02/11/18 23:30 117 23 139/54 (82) 96 Nasal Cannula 3.00 02/11/18 23:15 112 20 136/52 (80) 95 Nasal Cannula 3.00 02/11/18 23:00 114 17 141/52 (81) 97 Nasal Cannula 3.00 02/11/18 22:45 114 16 138/51 (80) 95 Nasal Cannula 3.00 02/11/18 22:43 Nasal Cannula 3.00 02/11/18 22:30 112 15 135/54 (81) 95 Nasal Cannula 3.00 02/11/18 22:15 116 18 147/63 (91) 96 Nasal Cannula 3.00 02/11/18 22:00 112 16 144/53 (83) 95 Nasal Cannula 3.00 02/11/18 21:45 113 18 143/51 (81) 94 Nasal Cannula 3.00 02/11/18 21:30 109 17 143/52 (82) 95 Nasal Cannula 3.00 02/11/18 21:15 112 19 149/56 (87) 96 Nasal Cannula 3.00 02/11/18 21:00 108 25 147/57 (87) 94 Nasal Cannula 3.00 02/11/18 20:45 108 15 147/54 (85) 94 Nasal Cannula 3.00 02/11/18 20:30 108 15 99/51 (67) 95 Nasal Cannula 3.00 02/11/18 20:15 109 14 151/68 (95) 96 Nasal Cannula 3.00 02/11/18 20:00 Nasal Cannula 3.00 02/11/18 20:00 112 20 149/62 (91) 96 Nasal Cannula 3.00 02/11/18 19:58 99.1 02/11/18 19:45 106 14 155/63 (93) 96 Nasal Cannula 3.00 02/11/18 19:30 109 13 159/67 (97) 96 Nasal Cannula 3.00 02/11/18 19:15 111 18 156/62 (93) 95 Nasal Cannula 3.00 02/11/18 19:00 111 02/11/18 19:00 111 20 162/66 (98) 96 Nasal Cannula 3.00 02/11/18 18:45 110 13 153/62 (92) 96 Nasal Cannula 3.00 02/11/18 18:30 104 14 150/54 (86) 98 Nasal Cannula 3.00 02/11/18 18:15 104 15 148/53 (84) 98 Nasal Cannula 3.00 02/11/18 18:00 103 21 141/53 (82) 97 Nasal Cannula 3.00 02/11/18 17:45 104 16 138/57 (84) 96 Nasal Cannula 3.00 02/11/18 17:30 104 16 142/60 (87) 97 Nasal Cannula 3.00 02/11/18 17:15 105 18 157/56 (89) 96 Nasal Cannula 3.00 02/11/18 17:00 106 19 164/58 (93) 98 Nasal Cannula 3.00 02/11/18 16:45 100 21 158/64 (95) 97 Nasal Cannula 3.00 02/11/18 16:30 105 13 163/59 (93) 96 Nasal Cannula 3.00 02/11/18 16:15 112 17 161/65 (97) 97 Nasal Cannula 3.00 02/11/18 16:00 112 19 163/66 (98) 96 Nasal Cannula 3.00 02/11/18 16:00 Nasal Cannula 3.00 02/11/18 15:57 103 15 148/66 (93) 95 Nasal Cannula 3.00 02/11/18 15:45 105 17 181/64 (103) 96 Nasal Cannula 3.00 I & O 02/12/18 07:00 Intake Total 400 ml Output Total 1955 ml Balance -1555 ml Capillary Refill : Less Than 3 Seconds General Appearance: No Apparent Distress, Obese HEENT: Pale Conjunctivae (L), Pale Conjunctivae (R) Neck: Full Range of Motion, Normal Inspection, Non Tender, Supple Respiratory: Normal Breath Sounds, No Accessory Muscle Use, No Respiratory Distress Cardiovascular: Regular Rate, Rhythm, No JVD, No Murmur, Normal Peripheral Pulses Gastrointestinal: non tender, soft Extremity: Normal Capillary Refill, Normal Range of Motion, Non Tender, No Calf Tenderness, Pedal Edema (BILATERALLY) Neurologic/Psychiatric: Alert, Oriented x3, No Motor/Sensory Deficits, Normal 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, 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 Skin: Warm/Dry, Pallor Results Lab Laboratory Tests 02/11/18 15:59: Glucometer 228H 02/11/18 16:51: Lab Scanned Report Transfusion Reaction Form 02/11/18 20:00: Glucometer 138H 02/12/18 06:30: White Blood Count 12.1H, Red Blood Count 2.60L, Hemoglobin 8.1L, Hematocrit 25L , Mean Corpuscular Volume 97, Mean Corpuscular Hemoglobin 31, Mean Corpuscular Hemoglobin Concent 32, Red Cell Distribution Width 17.2H, Platelet Count 158, Mean Platelet Volume 10.1, Neutrophils (%) (Auto) 79H, Lymphocytes (%) (Auto) 9L , Monocytes (%) (Auto) 12, Eosinophils (%) (Auto) 0, Basophils (%) (Auto) 0, Neutrophils # (Auto) 9.5H, Lymphocytes # (Auto) 1.1, Monocytes # (Auto) 1.4H, Eosinophils # (Auto) 0.0, Basophils # (Auto) 0.0, Sodium Level 133L, Potassium Level 4.6, Chloride Level 101, Carbon Dioxide Level 22, Anion Gap 10, Blood Urea Nitrogen 17, Creatinine 1.18, Estimat Glomerular Filtration Rate 47, BUN/ Creatinine Ratio 14, Glucose Level 282H, Calcium Level 9.4, Corrected Calcium 9.8, Total Bilirubin 1.0, Aspartate Amino Transf (AST/SGOT) 27, Alanine Aminotransferase (ALT/SGPT) 11, Alkaline Phosphatase 62, Troponin I 0.40*H, Total Protein 6.9, Albumin 3.5 02/12/18 11:26: Glucometer 366H Microbiology 02/11/18 MRSA Screen - Final, Complete Assessment/Plan Assessment/Plan Assessment/Plan chest pain poor venous access chronic GI bleed Anemia secondary to GI bleed. AFib Patient anemic and transfuse prn Cardiology consulted and wanted to do heart cath and patient refused. I discussed with the patient and she is now willing. Dr. Jorge being informed by nursing now. Had midline placed. Will hold on port placement. Clinical Quality Measures AMI/AHF: ASA po Prior to arrival: No DVT/VTE Risk/Contraindication: Risk Factor Score Per Nursin RFS Level Per Nursing on Admit: 4+=Very High SABRINA ROSSI DO Feb 12, 2018 15:49
[2018-02-13] MEDS ORDERED: ASPIRIN E.C. 81 MG (ECOTRIN) TAB PO SCH (09:00)
== END 2018-02-12 16:54 | disposition short-term general hospital (02) | DRG 280 ==
LOC: EDUNIT# 23:23 → ER 23:24 → ICU 02-11 00:30
PROVIDERS: ADMIT Family Medicine; ATTEND Family Medicine
PROC: 4A023N7 Measurement of Cardiac Sampling and Pressure, Left Heart, Percutaneous Approach (ICD-10-PCS; principal; 2018-02-12)
PROC: B2111ZZ Fluoroscopy of Multiple Coronary Arteries using Low Osmolar Contrast (ICD-10-PCS; 2018-02-12)
DX: I21.4 Non-ST elevation (NSTEMI) myocardial infarction (principal); I50.31 Acute diastolic (congestive) heart failure; K92.2 Gastrointestinal hemorrhage, unspecified; I25.110 Atherosclerotic heart disease of native coronary artery with unstable angina pectoris; D50.0 Iron deficiency anemia secondary to blood loss (chronic); E66.01 Morbid (severe) obesity due to excess calories; Z68.41 Body mass index [BMI] 40.0-44.9, adult; I48.2 Chronic atrial fibrillation; E03.9 Hypothyroidism, unspecified; I11.0 Hypertensive heart disease with heart failure; E11.65 Type 2 diabetes mellitus with hyperglycemia; E78.5 Hyperlipidemia, unspecified; M19.91 Primary osteoarthritis, unspecified site; G89.29 Other chronic pain; Z80.3 Family history of malignant neoplasm of breast; Z87.891 Personal history of nicotine dependence; Z95.5 Presence of coronary angioplasty implant and graft
CPT/HCPCS: 36415; 71045; 76937; 80053; 80061; 82150; 82550; 82553; 82962; 83036; 83690; 83735; 83874; 83880; 84100; 84484; 85014; 85018; 85025; 85610; 85730; 86850; 86900; 86901; 86920; 86922; 87081; 93005; 93041; 93306; 93458; 96374; 96375; 96376

== ENCOUNTER → 2018-02-11 | Outpatient (CLI) | payer SELFPAY ==
[~2018-02-11] MED LIST changes: +DIPH25CA79 PO; +ENAL5TAB PO; +FOLI1TAB24 PO; +LEVO175T5 PO
== END | disposition home or self-care (01) ==
LOC: PREOP 06:53
PROVIDERS: ATTEND Surgery
DX: Z01.818 Encounter for other preprocedural examination (principal)

== ENCOUNTER 2018-03-09 13:19 | Outpatient (RCR) | payer OTHER ==
[2018-03-03 17:17] LABS: BASOPHILS # (AUTO) 0.1 10^3/uL (0.0-0.1); BASOPHILS % (AUTO) 1 % (0-10); EOSINOPHILS # (AUTO) 0.8 10^3/uL (0.0-0.3); EOSINOPHILS % (AUTO) 9 % (0-10); HEMATOCRIT 29 % (35-52); HEMOGLOBIN 9.3 G/DL (11.5-16.0); LYMPHOCYTES # (AUTO) 1.5 X 10^3 (1.0-4.0); LYMPHOCYTES % (AUTO) 16 % (12-44); MEAN CORPUSCULAR HEMOGLOBIN 31 PG (25-34); MEAN CORPUSCULAR HGB CONC 32 G/DL (32-36); MEAN CORPUSCULAR VOLUME 98 FL (80-99); MEAN PLATELET VOLUME 10.2 FL (7.4-10.4); MONOCYTES # (AUTO) 0.9 X 10^3 (0.0-1.0); MONOCYTES % (AUTO) 10 % (0-12); NEUTROPHILS # (AUTO) 5.9 X 10^3 (1.8-7.8); NEUTROPHILS % (AUTO) 65 % (42-75); PLATELET COUNT 139 10^3/uL (130-400); RED BLOOD COUNT 2.99 10^6/uL (4.35-5.85); WHITE BLOOD COUNT 9.1 10^3/uL (4.3-11.0)
[2018-03-03 17:24] LABS: ABSOLUTE RETIC # 56 10e9/L (24-90); RETICULOCYTE % 2.13 % (0.50-2.40)
[2018-03-09 13:41] LABS: BASOPHILS % (AUTO) 1 % (0-10); EOSINOPHILS # (AUTO) 0.4 10^3/uL (0.0-0.3); EOSINOPHILS % (AUTO) 8 % (0-10); HEMATOCRIT 28 % (35-52); HEMOGLOBIN 8.7 G/DL (11.5-16.0); LYMPHOCYTES % (AUTO) 19 % (12-44); MEAN CORPUSCULAR HEMOGLOBIN 31 PG (25-34); MEAN CORPUSCULAR HGB CONC 31 G/DL (32-36); MEAN CORPUSCULAR VOLUME 100 FL (80-99); MEAN PLATELET VOLUME 9.9 FL (7.4-10.4); MONOCYTES # (AUTO) 0.5 X 10^3 (0.0-1.0); MONOCYTES % (AUTO) 10 % (0-12); NEUTROPHILS # (AUTO) 3.1 X 10^3 (1.8-7.8); NEUTROPHILS % (AUTO) 62 % (42-75); PLATELET COUNT 154 10^3/uL (130-400); RED BLOOD COUNT 2.83 10^6/uL (4.35-5.85); RED CELL DISTRIBUTION WIDTH 16.2 % (10.0-14.5); WHITE BLOOD COUNT 4.9 10^3/uL (4.3-11.0)
[2018-03-09 14:10] LABS: ALBUMIN 3.3 GM/DL (3.2-4.5); BILIRUBIN,TOTAL 0.5 MG/DL (0.1-1.0); CALCIUM 9.3 MG/DL (8.5-10.1); CREATININE SERUM 1.62 MG/DL (0.60-1.30); POTASSIUM 4.2 MMOL/L (3.6-5.0); TOTAL PROTEIN 7.5 GM/DL (6.4-8.2)
== END 2018-03-14 | disposition home or self-care (01) ==
LOC: ONC 13:19
PROVIDERS: ATTEND Internal Medicine Hematology & Oncology
DX: D50.9 Iron deficiency anemia, unspecified (principal); I25.10 Atherosclerotic heart disease of native coronary artery without angina pectoris; E03.9 Hypothyroidism, unspecified; I12.9 Hypertensive chronic kidney disease with stage 1 through stage 4 chronic kidney disease, or unspecified chronic kidney disease; N18.3 Chronic kidney disease, stage 3 (moderate); E11.22 Type 2 diabetes mellitus with diabetic chronic kidney disease; I48.91 Unspecified atrial fibrillation; Z79.899 Other long term (current) drug therapy
CPT/HCPCS: 36415; 80053; 82728; 83540; 85025; 85045; 99213

== ENCOUNTER → 2018-03-20 | Outpatient (CLI) | payer OTHER ==
--- NOTE | 2018-03-20 14:23 | Diagnostic Imaging Report ---
PROCEDURE: US left lower extremity venous. TECHNIQUE: Multiple real-time grayscale images were obtained over the left lower extremity in various projections. Additional duplex Doppler and color Doppler images were also obtained. INDICATION: Left lower extremity swelling and pain COMPARISON: None. FINDINGS: Visualized deep and superficial venous system is patent. There is no mass or DVT. IMPRESSION: Negative left lower extremity venous Doppler. Dictated by: Dictated on workstation # [id number]
== END ==
LOC: RAD 12:20
PROVIDERS: ATTEND Nurse Practitioner
DX: M79.89 Other specified soft tissue disorders (principal)

== ENCOUNTER → 2018-04-29 | Outpatient (CLI) | payer SELFPAY | LOC: LAB 11:33 | PROVIDERS: ATTEND Internal Medicine Gastroenterology | DX: Z53.9 Procedure and treatment not carried out, unspecified reason (principal) ==

== ENCOUNTER 2018-05-05 09:11 | Outpatient (CLI) | payer SELFPAY ==
[~2018-05-05] VITALS: Ht 162.6 cm; Wt 114.8 kg
[2018-05-05 10:30] VITALS: BP 114/59
[2018-05-05] MEDS ORDERED: FUROSEMIDE 40 MG/4 ML INJ (LASIX) IVP ONE (10:45)
[2018-05-05] MEDS ORDERED: ACETAMINOPHEN 500 MG TAB (TYLENOL) PO ONE (10:45)
[2018-05-05] MEDS ORDERED: NS IV 500 ML 500 ML ONE (11:55)
--- NOTE | 2018-05-05 12:19 | Diagnostic Imaging Report ---
Portable Chest Indication: PICC line placement. Comparison: 02/11/2018. Findings: A right-sided PICC line has been placed. This appears to terminate within the distal SVC. The patient is status post previous sternotomy. There is enlargement of the cardiac silhouette. There are surgical clips projecting over the left lung apex. The central pulmonary vascularity appears prominent. There are some air bronchograms demonstrated within the left lower lobe with a probable left-sided effusion. Impression: 1. A right-sided PICC line terminates within the distal SVC. 2. Enlarged cardiac silhouette with pulmonary vascular prominence and a probable left-sided effusion. On this single frontal view, retrocardiac consolidation cannot be excluded. Dictated by: Dictated on workstation # [id number]
[2018-05-05] MEDS ORDERED: FUROSEMIDE 40 MG/4 ML INJ (LASIX) ONE (14:28)
[2018-05-05] MEDS ORDERED: NS IV 500 ML 500 ML IV ONE (17:45)
== END 2018-05-05 16:55 | disposition home or self-care (01) ==
LOC: SDC 09:11
PROVIDERS: ATTEND Nurse Practitioner Adult Health
DX: D64.9 Anemia, unspecified (principal); I87.2 Venous insufficiency (chronic) (peripheral)
CPT/HCPCS: 36430; 36569; 71045; 76937

== ENCOUNTER 2018-05-20 12:48 | Outpatient (RCR) | payer OTHER ==
[2018-03-16 11:26] LABS: BASOPHILS % (AUTO) 1 % (0-10); EOSINOPHILS # (AUTO) 0.3 10^3/uL (0.0-0.3); EOSINOPHILS % (AUTO) 8 % (0-10); HEMATOCRIT 25 % (35-52); HEMOGLOBIN 7.8 G/DL (11.5-16.0); LYMPHOCYTES # (AUTO) 0.7 X 10^3 (1.0-4.0); LYMPHOCYTES % (AUTO) 17 % (12-44); MEAN CORPUSCULAR HEMOGLOBIN 32 PG (25-34); MEAN CORPUSCULAR HGB CONC 32 G/DL (32-36); MEAN CORPUSCULAR VOLUME 103 FL (80-99); MEAN PLATELET VOLUME 9.2 FL (7.4-10.4); MONOCYTES # (AUTO) 0.4 X 10^3 (0.0-1.0); MONOCYTES % (AUTO) 10 % (0-12); NEUTROPHILS # (AUTO) 2.7 X 10^3 (1.8-7.8); NEUTROPHILS % (AUTO) 65 % (42-75); PLATELET COUNT 169 10^3/uL (130-400); RED BLOOD COUNT 2.41 10^6/uL (4.35-5.85); RED CELL DISTRIBUTION WIDTH 16.5 % (10.0-14.5); WHITE BLOOD COUNT 4.3 10^3/uL (4.3-11.0)
[2018-03-23 14:08] LABS: BASOPHILS # (AUTO) 0.1 10^3/uL (0.0-0.1); BASOPHILS % (AUTO) 1 % (0-10); EOSINOPHILS # (AUTO) 0.4 10^3/uL (0.0-0.3); EOSINOPHILS % (AUTO) 6 % (0-10); HEMATOCRIT 29 % (35-52); LYMPHOCYTES # (AUTO) 1.1 X 10^3 (1.0-4.0); LYMPHOCYTES % (AUTO) 17 % (12-44); MEAN CORPUSCULAR HEMOGLOBIN 31 PG (25-34); MEAN CORPUSCULAR HGB CONC 31 G/DL (32-36); MEAN CORPUSCULAR VOLUME 99 FL (80-99); MONOCYTES # (AUTO) 0.7 X 10^3 (0.0-1.0); MONOCYTES % (AUTO) 11 % (0-12); NEUTROPHILS # (AUTO) 4.1 X 10^3 (1.8-7.8); NEUTROPHILS % (AUTO) 65 % (42-75); PLATELET COUNT 168 10^3/uL (130-400); RED BLOOD COUNT 2.89 10^6/uL (4.35-5.85); RED CELL DISTRIBUTION WIDTH 17.2 % (10.0-14.5); WHITE BLOOD COUNT 6.4 10^3/uL (4.3-11.0)
[2018-04-14 10:27] LABS: ABSOLUTE RETIC # 59 10e9/L (24-90); BASOPHILS % (AUTO) 0 % (0-10); EOSINOPHILS # (AUTO) 0.4 10^3/uL (0.0-0.3); EOSINOPHILS % (AUTO) 7 % (0-10); HEMATOCRIT 30 % (35-52); HEMOGLOBIN 9.1 G/DL (11.5-16.0); LYMPHOCYTES # (AUTO) 1.1 X 10^3 (1.0-4.0); LYMPHOCYTES % (AUTO) 20 % (12-44); MEAN CORPUSCULAR HEMOGLOBIN 31 PG (25-34); MEAN CORPUSCULAR HGB CONC 30 G/DL (32-36); MEAN CORPUSCULAR VOLUME 102 FL (80-99); MEAN PLATELET VOLUME 10.6 FL (7.4-10.4); MONOCYTES # (AUTO) 0.7 X 10^3 (0.0-1.0); MONOCYTES % (AUTO) 13 % (0-12); NEUTROPHILS # (AUTO) 3.2 X 10^3 (1.8-7.8); NEUTROPHILS % (AUTO) 60 % (42-75); PLATELET COUNT 145 10^3/uL (130-400); RED BLOOD COUNT 2.95 10^6/uL (4.35-5.85); RED CELL DISTRIBUTION WIDTH 15.9 % (10.0-14.5); RETICULOCYTE % 2.01 % (0.50-2.40); WHITE BLOOD COUNT 5.4 10^3/uL (4.3-11.0)
[2018-04-14 10:47] LABS: ALBUMIN 3.3 GM/DL (3.2-4.5); BILIRUBIN,TOTAL 0.7 MG/DL (0.1-1.0); CALCIUM 9.6 MG/DL (8.5-10.1); CREATININE SERUM 3.52 MG/DL (0.60-1.30); POTASSIUM 5.3 MMOL/L (3.6-5.0); TOTAL PROTEIN 7.4 GM/DL (6.4-8.2)
[2018-04-20 15:35] LABS: BASOPHILS % (AUTO) 0 % (0-10); EOSINOPHILS # (AUTO) 0.4 10^3/uL (0.0-0.3); EOSINOPHILS % (AUTO) 7 % (0-10); HEMATOCRIT 28 % (35-52); HEMOGLOBIN 8.5 G/DL (11.5-16.0); LYMPHOCYTES # (AUTO) 1.2 X 10^3 (1.0-4.0); LYMPHOCYTES % (AUTO) 20 % (12-44); MEAN CORPUSCULAR HEMOGLOBIN 31 PG (25-34); MEAN CORPUSCULAR HGB CONC 31 G/DL (32-36); MEAN CORPUSCULAR VOLUME 101 FL (80-99); MEAN PLATELET VOLUME 10.9 FL (7.4-10.4); MONOCYTES # (AUTO) 0.6 X 10^3 (0.0-1.0); MONOCYTES % (AUTO) 9 % (0-12); NEUTROPHILS # (AUTO) 3.9 X 10^3 (1.8-7.8); NEUTROPHILS % (AUTO) 65 % (42-75); PLATELET COUNT 136 10^3/uL (130-400); RED BLOOD COUNT 2.74 10^6/uL (4.35-5.85); RED CELL DISTRIBUTION WIDTH 15.3 % (10.0-14.5)
[2018-04-27 14:53] LABS: BASOPHILS % (AUTO) 0 % (0-10); EOSINOPHILS # (AUTO) 0.4 10^3/uL (0.0-0.3); EOSINOPHILS % (AUTO) 7 % (0-10); HEMATOCRIT 23 % (35-52); HEMOGLOBIN 7.1 G/DL (11.5-16.0); LYMPHOCYTES # (AUTO) 1.1 X 10^3 (1.0-4.0); LYMPHOCYTES % (AUTO) 20 % (12-44); MEAN CORPUSCULAR HEMOGLOBIN 31 PG (25-34); MEAN CORPUSCULAR HGB CONC 31 G/DL (32-36); MEAN CORPUSCULAR VOLUME 102 FL (80-99); MEAN PLATELET VOLUME 10.4 FL (7.4-10.4); MONOCYTES # (AUTO) 0.5 X 10^3 (0.0-1.0); MONOCYTES % (AUTO) 9 % (0-12); NEUTROPHILS # (AUTO) 3.2 X 10^3 (1.8-7.8); NEUTROPHILS % (AUTO) 63 % (42-75); PLATELET COUNT 132 10^3/uL (130-400); RED BLOOD COUNT 2.28 10^6/uL (4.35-5.85); RED CELL DISTRIBUTION WIDTH 15.4 % (10.0-14.5); WHITE BLOOD COUNT 5.2 10^3/uL (4.3-11.0)
[2018-04-29 15:32] LABS: INR 1.2 (0.8-1.4); PROTHROMBIN TIME PATIENT 15.6 SEC (12.2-14.7)
[2018-04-29 17:08] LABS: CALCIUM 8.6 MG/DL (8.5-10.1); CREATININE SERUM 2.3 MG/DL (0.60-1.30); POTASSIUM 4.8 MMOL/L (3.6-5.0); TOTAL PROTEIN 6.6 GM/DL (6.4-8.2)
[2018-05-04 15:10] LABS: BASOPHILS # (AUTO) 0.1 10^3/uL (0.0-0.1); BASOPHILS % (AUTO) 1 % (0-10); EOSINOPHILS # (AUTO) 0.5 10^3/uL (0.0-0.3); EOSINOPHILS % (AUTO) 8 % (0-10); HEMATOCRIT 25 % (35-52); HEMOGLOBIN 7.8 G/DL (11.5-16.0); LYMPHOCYTES # (AUTO) 1.1 X 10^3 (1.0-4.0); LYMPHOCYTES % (AUTO) 19 % (12-44); MEAN CORPUSCULAR HEMOGLOBIN 31 PG (25-34); MEAN CORPUSCULAR HGB CONC 31 G/DL (32-36); MEAN CORPUSCULAR VOLUME 101 FL (80-99); MEAN PLATELET VOLUME 10.3 FL (7.4-10.4); MONOCYTES # (AUTO) 0.6 X 10^3 (0.0-1.0); MONOCYTES % (AUTO) 10 % (0-12); NEUTROPHILS # (AUTO) 3.8 X 10^3 (1.8-7.8); NEUTROPHILS % (AUTO) 63 % (42-75); PLATELET COUNT 160 10^3/uL (130-400); RED BLOOD COUNT 2.49 10^6/uL (4.35-5.85); WHITE BLOOD COUNT 6.1 10^3/uL (4.3-11.0)
[2018-05-05 12:39] VITALS: BP 126/47
[2018-05-05 13:01] VITALS: BP 134/62
[2018-05-05 14:32] VITALS: BP 123/64
[2018-05-05 14:57] VITALS: BP 122/75
[2018-05-05 15:21] VITALS: BP 110/59
[2018-05-05 16:40] VITALS: BP 128/64
[2018-05-11 14:43] LABS: BASOPHILS % (AUTO) 1 % (0-10); EOSINOPHILS # (AUTO) 0.3 10^3/uL (0.0-0.3); EOSINOPHILS % (AUTO) 6 % (0-10); HEMATOCRIT 27 % (35-52); HEMOGLOBIN 8.4 G/DL (11.5-16.0); LYMPHOCYTES # (AUTO) 0.9 X 10^3 (1.0-4.0); LYMPHOCYTES % (AUTO) 20 % (12-44); MEAN CORPUSCULAR HEMOGLOBIN 31 PG (25-34); MEAN CORPUSCULAR HGB CONC 31 G/DL (32-36); MEAN CORPUSCULAR VOLUME 100 FL (80-99); MEAN PLATELET VOLUME 9.7 FL (7.4-10.4); MONOCYTES # (AUTO) 0.5 X 10^3 (0.0-1.0); MONOCYTES % (AUTO) 10 % (0-12); NEUTROPHILS # (AUTO) 2.8 X 10^3 (1.8-7.8); NEUTROPHILS % (AUTO) 63 % (42-75); PLATELET COUNT 141 10^3/uL (130-400); RED BLOOD COUNT 2.71 10^6/uL (4.35-5.85); RED CELL DISTRIBUTION WIDTH 15.6 % (10.0-14.5); WHITE BLOOD COUNT 4.5 10^3/uL (4.3-11.0)
[2018-05-11 15:23] LABS: ALBUMIN 3.1 GM/DL (3.2-4.5); BILIRUBIN,TOTAL 0.6 MG/DL (0.1-1.0); CALCIUM 9.3 MG/DL (8.5-10.1); CREATININE SERUM 2.47 MG/DL (0.60-1.30); POTASSIUM 4.2 MMOL/L (3.6-5.0); TOTAL PROTEIN 6.8 GM/DL (6.4-8.2)
[2018-05-18 13:37] LABS: BASOPHILS % (AUTO) 1 % (0-10); EOSINOPHILS # (AUTO) 0.4 10^3/uL (0.0-0.3); EOSINOPHILS % (AUTO) 6 % (0-10); HEMATOCRIT 25 % (35-52); HEMOGLOBIN 7.7 G/DL (11.5-16.0); LYMPHOCYTES # (AUTO) 1.2 X 10^3 (1.0-4.0); LYMPHOCYTES % (AUTO) 20 % (12-44); MEAN CORPUSCULAR HEMOGLOBIN 31 PG (25-34); MEAN CORPUSCULAR HGB CONC 31 G/DL (32-36); MEAN CORPUSCULAR VOLUME 102 FL (80-99); MEAN PLATELET VOLUME 10.1 FL (7.4-10.4); MONOCYTES # (AUTO) 0.6 X 10^3 (0.0-1.0); MONOCYTES % (AUTO) 10 % (0-12); NEUTROPHILS % (AUTO) 64 % (42-75); PLATELET COUNT 178 10^3/uL (130-400); RED BLOOD COUNT 2.47 10^6/uL (4.35-5.85); RED CELL DISTRIBUTION WIDTH 15.8 % (10.0-14.5); WHITE BLOOD COUNT 6.2 10^3/uL (4.3-11.0)
[~2018-05-20 12:48] MED LIST changes: +CYANOCOBALAMIN INJ 1000 MCG/ML (CANCER CENTER) ONE; +NS (IVPB) CANCER CENTER 250 ML ONE; +NS IV 500 ML (CANCER CENTER) 500 ML ONE
[2018-05-20] MEDS ORDERED: NS (IVPB) CANCER CENTER 250 ML ONE (12:50)
[2018-05-20] MEDS ORDERED: DILT180C82 PO (15:24)
[2018-05-20] MEDS ORDERED: POTA-51 PO (15:24)
[2018-05-20] MEDS ORDERED: MAGN400T39 PO (15:24)
[2018-05-20] MEDS ORDERED: TORS20TA3 PO (15:24)
[2018-05-20] MEDS ORDERED: ROSU40TA22 PO (15:24)
[2018-05-20] MEDS ORDERED: METO100T12 PO (15:24)
[2018-05-20] MEDS ORDERED: SENN-40 PO (15:41)
[2018-05-20] MEDS ORDERED: ASPI-983 PO (15:41)
[2018-05-20] MEDS ORDERED: INSU100I14 SQ (15:42)
[2018-05-20] MEDS ORDERED: INSN1U SQ (15:42)
[2018-05-25] MEDS ORDERED: FURO-124 PO (12:41)
[2018-05-31] MEDS ORDERED: TORS20TA3 PO (13:07)
[2018-05-31] MEDS ORDERED: MAGN400T39 PO (13:08)
[2018-05-31] MEDS ORDERED: ROSU40TA22 PO (13:08)
== END 2018-06-14 | disposition home or self-care (01) ==
LOC: ONC 12:48
PROVIDERS: ATTEND Internal Medicine Hematology & Oncology
DX: D50.9 Iron deficiency anemia, unspecified (principal); I25.10 Atherosclerotic heart disease of native coronary artery without angina pectoris; E03.9 Hypothyroidism, unspecified; I12.9 Hypertensive chronic kidney disease with stage 1 through stage 4 chronic kidney disease, or unspecified chronic kidney disease; N18.3 Chronic kidney disease, stage 3 (moderate); E11.22 Type 2 diabetes mellitus with diabetic chronic kidney disease; I48.91 Unspecified atrial fibrillation; Z79.899 Other long term (current) drug therapy
CPT/HCPCS: 36415; 36430; 36591; 80053; 82390; 82728; 82784; 82787; 83540; 84443; 85025; 85045; 85610; 86038; 86255; 86703; 86708; 86850; 86900; 86901; 86902; 86922; 96372

== ENCOUNTER 2018-05-28 13:47 | Emergency (ER) | payer OTHER ==
[~2018-05-28] VITALS: Ht 162.6 cm; Wt 113.9 kg
[~2018-05-28 13:47] MED LIST changes: +ASPI-983 PO; -CYANOCOBALAMIN INJ 1000 MCG/ML (CANCER CENTER) ONE; +DILT180C82 PO; +FURO-124 PO; +INSN1U SQ; +INSU100I14 SQ; +MAGN400T39 PO; +METO100T12 PO; -NS (IVPB) CANCER CENTER 250 ML ONE; -NS IV 500 ML (CANCER CENTER) 500 ML ONE; +POTA-51 PO; +ROSU40TA22 PO; +SENN-40 PO; +TORS20TA3 PO
[2018-05-28 14:19] LABS: BASOPHILS % (AUTO) 1 % (0-10); EOSINOPHILS # (AUTO) 0.4 10^3/uL (0.0-0.3); EOSINOPHILS % (AUTO) 6 % (0-10); HEMATOCRIT 29 % (35-52); HEMOGLOBIN 8.7 G/DL (11.5-16.0); LYMPHOCYTES # (AUTO) 0.8 X 10^3 (1.0-4.0); LYMPHOCYTES % (AUTO) 15 % (12-44); MEAN CORPUSCULAR HEMOGLOBIN 31 PG (25-34); MEAN CORPUSCULAR HGB CONC 31 G/DL (32-36); MEAN CORPUSCULAR VOLUME 101 FL (80-99); MEAN PLATELET VOLUME 10.1 FL (7.4-10.4); MONOCYTES # (AUTO) 0.4 X 10^3 (0.0-1.0); MONOCYTES % (AUTO) 7 % (0-12); NEUTROPHILS % (AUTO) 72 % (42-75); PLATELET COUNT 163 10^3/uL (130-400); RED BLOOD COUNT 2.81 10^6/uL (4.35-5.85); RED CELL DISTRIBUTION WIDTH 15.3 % (10.0-14.5); WHITE BLOOD COUNT 5.5 10^3/uL (4.3-11.0)
--- NOTE | 2018-05-28 14:25 | Diagnostic Imaging Report ---
Indication: Lower respiratory infection. Portable chest 2:17 PM Heart is mildly enlarged. There some consolidation of the left lung base with small effusion. Right lung is clear. There are postop changes from a median sternotomy. Impression: Left basilar consolidation and effusion appears similar to comparison exam done 05/24/2018. Dictated by: Dictated on workstation # [id number]
[2018-05-28 14:39] LABS: ALBUMIN 3.3 GM/DL (3.2-4.5); BILIRUBIN,TOTAL 0.7 MG/DL (0.1-1.0); CALCIUM 9.3 MG/DL (8.5-10.1); CREATININE SERUM 1.95 MG/DL (0.60-1.30); POTASSIUM 4.3 MMOL/L (3.6-5.0); TOTAL PROTEIN 7.5 GM/DL (6.4-8.2)
--- NOTE | 2018-05-28 14:49 | ED General ---
General Chief Complaint: Respiratory Problems Stated Complaint: SOB Nursing Triage Note: reports soa starting last night that got progressively worse this morning. Pt reports nausea and generalized weakness. Nursing Sepsis Screen: No Definite Risk Source of Information: Patient Exam Limitations: No Limitations History of Present Illness Date Seen by Provider: May 28, 2018 Time Seen by Provider: 14:46 Initial Comments The patient is a 62-year-old white female known to me. 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 She was in the hospital earlier this week and discharged after a stay from 05 20 through . She was apparently anemic which is a chronic condition. In addition her initial temperature was 101 and her urine grew Escherichia coli. Her PICC line was removed and cultured and grew staph. She reports that last night she began to have increasing shortness of breath. She is known to have a pleural effusion. She does part of her health care at [facility]. She states that the effusion has been tapped multiple times with the last being about 2 weeks or more. It was present during her recent admission but not tapped. She denies fever chills or sweats. Allergies and Home Medications Allergies Coded Allergies: [id number]-[id number]-Luu Reductase Inhibitor (Verified Allergy, Intermediate, GI UPSET, N/V, 11/06/17) cefadroxil (Unverified Allergy, Mild, 01/01/17) Home Medications Aspirin 81 Mg Tablet.dr, 81 MG PO DAILY, (Reported) Cetirizine HCl 10 Mg Tablet, 10 MG PO DAILY, (Reported) Diltiazem HCl 180 Mg Capsule.er, 180 MG PO DAILY, (Reported) Diphenhydramine HCl 25 Mg Capsule, 25 MG PO Q6H PRN for ALLERGIES, (Reported) Folic Acid 1 Mg Tablet, 1 MG PO DAILY, (Reported) Furosemide 40 Mg Tablet, 40 MG PO DAILY Prescribed by: JAMES TORRES on 05/25/18 1241 Insulin Aspart 300 Units/3 Ml Solution, 4 UNITS SQ TIDAC, (Reported) Insulin NPH Human Isophane 100 Unit/1 Ml Vial, 14 UNIT SQ DAILY, (Reported) Levothyroxine Sodium 175 Mcg Tablet, 175 MCG PO DAILY, (Reported) Metoprolol Tartrate 100 Mg Tablet, 100 MG PO BID, (Reported) Nitroglycerin 0.4 Mg Tab.subl, 0.4 MG PO UD PRN for CHEST PAIN, (Reported) Omeprazole 40 Mg Capsule.dr, 40 MG PO BID, (Reported) Ondansetron HCl 8 Mg Tablet, 8 MG PO Q8H PRN for NAUSEA/VOMITING-1ST LINE, ( Reported) Potassium Chloride 20 Meq Tablet.er, 20 MEQ PO DAILY, (Reported) Sennosides/Docusate Sodium 1 Each Tablet, 1 TAB PO HS, (Reported) Tizanidine HCl 4 Mg Tablet, 4 MG PO TID PRN for MUSCLE SPASMS, (Reported) Tramadol HCl 50 Mg Tablet, 50 MG PO TID PRN for PAIN-MODERATE, (Reported) Patient Home Medication List Home Medication List Reviewed: Yes Review of Systems Review of Systems Constitutional: see HPI EENTM: no symptoms reported Respiratory: short of breath Cardiovascular: other (recent coronary artery bypass.) Gastrointestinal: no symptoms reported Genitourinary: no symptoms reported Musculoskeletal: no symptoms reported Skin: no symptoms reported Psychiatric/Neurological: No Symptoms Reported Past Caszvut-Ljcqym-Tdputh Hx Patient Social History Alcohol Use: Rarely Uses Recreational Drug Use: No Smoking Status: Former Smoker Type Used: Cigarettes Former Smoker, Quit: May 20, 1980 Recent Foreign Travel: No Contact w/Someone Who Travel: No Recent Infectious Disease Expo: No Recent Hopitalizations: No Physical Abuse: No Sexual Abuse: No Mistreated: No Fear: No Immunizations Up To Date Tetanus Booster (TDap): Unknown PED Vaccines UTD: Yes Date of Pneumonia Vaccine: Jun 23, 2016 Date of Influenza Vaccine: May 18, 2018 Seasonal Allergies Seasonal Allergies: Yes Past Medical History Surgeries: Yes Adenoidectomy, Cardiac, CABG, Coronary Stent, Orthopedic, Tonsillectomy, Tubal Ligation Respiratory: Yes Sleep Apnea Currently Using CPAP: No Currently Using BIPAP: No Cardiac: Yes (CHF, STENT X1) Atrial Fibrillation, Chronic Edema/Swelling, Coronary Artery Disease, Heart Attack, High Cholesterol, Hypertension Neurological: No Reproductive Disorders: No Female Reproductive Disorders: 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 Sexually Transmitted Disease: No HIV/AIDS: No Genitourinary: Yes Renal Failure Gastrointestinal: Yes (POSS GI BLEED-CHRONIC GI BLOOD LOSS; POLYP REMOVAL; GASTRITIS ) Gastroesophageal Reflux, Gastrointestinal Bleed, Diverticulosis, Polyps Musculoskeletal: Yes Degenerate Disk Disease, Arthritis, Chronic Back Pain Endocrine: Yes (OBESITY) Diabetes, Non-Insulin dep HEENT: No Loss of Vision: Denies Hearing Impairment: Denies Cancer: No Psychosocial: No Integumentary: Yes Psoriasis Blood Disorders: Yes (CHRONIC IRON DEFICIENCY ANEMIA--CHRONIC GI BLOOD LOSS) Adverse Reaction/Blood Tranf: Yes (Antibody JKA) Family Medical History Arthritis G8 BROTHER Completed stroke 19 MOTHER FH: anemia 19 MOTHER FH: lupus G8 SISTER FH: throat cancer 19 FATHER Hypertension G8 SISTER Myocardial infarction 19 MOTHER Thyroid disease 19 MOTHER G8 SISTER Hypertension, Stroke, Other Conditions/Hx Physical Exam Vital Signs Vital Signs - First Documented 05/28/18 14:14 Temp 96.0 Pulse 58 Resp 12 B/P (MAP) 100/60 (73) Pulse Ox 95 O2 Delivery Nasal Cannula O2 Flow Rate 3.00 Capillary Refill : Less Than 3 Seconds Height, Weight, BMI Height: 5'4.00" Weight: 251lbs. 4.0oz. 113.051425ab; 45.1 BMI Method:Stated General Appearance: No Apparent Distress (at rest on the exam table) Eyes: Bilateral Eye Normal Inspection HEENT: Normal ENT Inspection Neck: Full Range of Motion, Normal Inspection, Non Tender, Supple, Carotid Bruit Respiratory: Chest Non Tender, Lungs Clear, Normal Breath Sounds, No Accessory Muscle Use, No Respiratory Distress, Other (dullness to percussion left base) Cardiovascular: Regular Rate, Rhythm, No Edema, No Gallop, No JVD, No Murmur, Normal Peripheral Pulses, Other (recent sternotomy scar noted) Gastrointestinal: Normal Bowel Sounds, No Organomegaly, No Pulsatile Mass, Non Tender, Soft Extremity: Normal Capillary Refill, Pedal Edema Neurologic/Psychiatric: Alert, Oriented x3, No Motor/Sensory Deficits, Normal Mood/Affect Skin: Normal Color Progress/Results/Core Measures Suspected Sepsis Recent Fever Within 48 Hours: No Infection Criteria Present: None New/Unexplained Altered Menta: No Sepsis Screen: No Definite Risk SIRS Temperature:96.0 Pulse: 58 Respiratory Rate: 12 Laboratory Tests 05/28/18 14:07: White Blood Count 5.5 Blood Pressure 100 /60 Mean: 73 Laboratory Tests 05/28/18 14:07: Creatinine 1.95H, Platelet Count 163, Total Bilirubin 0.7 Results/Orders Lab Results Laboratory Tests Test 05/28/18 14:07 05/28/18 15:15 Range/Units White Blood Count 5.5 4.3-11.0 10^3/uL Red Blood Count 2.81 L 4.35-5.85 10^6/uL Hemoglobin 8.7 L 11.5-16.0 G/DL Hematocrit 29 L 35-52 % Mean Corpuscular Volume 101 H 80-99 FL Mean Corpuscular Hemoglobin 31 25-34 PG Mean Corpuscular Hemoglobin Concent 31 L 32-36 G/DL Red Cell Distribution Width 15.3 H 10.0-14.5 % Platelet Count 163 130-400 10^3/uL Mean Platelet Volume 10.1 7.4-10.4 FL Neutrophils (%) (Auto) 72 42-75 % Lymphocytes (%) (Auto) 15 12-44 % Monocytes (%) (Auto) 7 0-12 % Eosinophils (%) (Auto) 6 0-10 % Basophils (%) (Auto) 1 0-10 % Neutrophils # (Auto) 4.0 1.8-7.8 X 10^3 Lymphocytes # (Auto) 0.8 L 1.0-4.0 X 10^3 Monocytes # (Auto) 0.4 0.0-1.0 X 10^3 Eosinophils # (Auto) 0.4 H 0.0-0.3 10^3/uL Basophils # (Auto) 0.0 0.0-0.1 10^3/uL Sodium Level 140 135-145 MMOL/L Potassium Level 4.3 3.6-5.0 MMOL/L Chloride Level 95 L 98-107 MMOL/L Carbon Dioxide Level 37 H 21-32 MMOL/L Anion Gap 8 5-14 MMOL/L Blood Urea Nitrogen 33 H 7-18 MG/DL Creatinine 1.95 H 0.60-1.30 MG/DL Estimat Glomerular Filtration Rate 26 BUN/Creatinine Ratio 17 Glucose Level 219 H 70-105 MG/DL Calcium Level 9.3 8.5-10.1 MG/DL Corrected Calcium 9.9 8.5-10.1 MG/DL Total Bilirubin 0.7 0.1-1.0 MG/DL Aspartate Amino Transf (AST/SGOT) 17 5-34 U/L Alanine Aminotransferase (ALT/SGPT) 8 0-55 U/L Alkaline Phosphatase 64 40-136 U/L Total Protein 7.5 6.4-8.2 GM/DL Albumin 3.3 3.2-4.5 GM/DL Urine Color YELLOW Urine Clarity VERY CLOUDY H Urine pH 5 5-9 Urine Specific [place] 1.020 1.016-1.022 Urine Protein 3+ H NEGATIVE Urine Glucose (UA) NEGATIVE NEGATIVE Urine Ketones NEGATIVE NEGATIVE Urine Nitrite NEGATIVE NEGATIVE Urine Bilirubin 1+ H NEGATIVE Urine Urobilinogen NORMAL NORMAL MG/DL Urine Leukocyte Esterase 2+ H NEGATIVE Urine RBC (Auto) NEGATIVE NEGATIVE Urine RBC NONE /HPF Urine WBC 5-10 H /HPF Urine Squamous Epithelial Cells >50 H /HPF Urine Crystals NONE /LPF Urine Bacteria NONE /HPF Urine Casts NONE /LPF Urine Mucus NEGATIVE /LPF Urine Yeast MODERATE H /HPF Urine Culture Indicated YES My Orders Orders - MODESTO BALDERRAMA MD Cbc With Automated Diff (05/28/18 13:51) Comprehensive Metabolic Panel (05/28/18 13:51) Ua Culture If Indicated (05/28/18 13:51) Chest 1 View, Ap/Pa Only (05/28/18 13:54) General/Regular (05/28/18 Dinner) [place] Chest [id number] (05/28/18 15:32) Urine Culture (05/28/18 15:15) Ondansetron Oral Dissolve Tab (Zofran O (05/28/18 16:45) Vital Signs/I&O 05/28/18 14:14 Temp 96.0 Pulse 58 Resp 12 B/P (MAP) 100/60 (73) Pulse Ox 95 O2 Delivery Nasal Cannula O2 Flow Rate 3.00 Capillary Refill : Less Than 3 Seconds Blood Pressure Mean: 73 Departure Communication (Admissions) The patient was seen by Dr. Holt in consultation. He believes the effusion on the left is stable and would be relatively dangerous to attempt to tap. Impression Primary Impression: left pleural effusion. Disposition: 01 HOME, SELF-CARE Condition: Stable/Unchanged Departure-Patient Inst. Decision time for Depature: 16:47 Referrals: JAMES TORRES MD (PCP/Family) Primary Care Physician Add. Discharge Instructions: All discharge instructions reviewed with patient and/or family. Voiced understanding. Continue diuretics as prescribed. Use home oxygen as before. Return if any decline in condition. MODESTO BALDERRAMA MD May 28, 2018 14:49
[2018-05-28 15:29] LABS: BILIRUBIN,URINE 1+ (NEGATIVE); CLARITY,URINE VERY CLOUDY; COLOR,URINE YELLOW; GLUCOSE, URINE (UA) NEGATIVE (NEGATIVE); KETONES,URINE NEGATIVE (NEGATIVE); LEUKOCYTE ESTERASE ,URINE 2+ (NEGATIVE); NITRITE,URINE NEGATIVE (NEGATIVE); PH,URINE 5 (5-9); PROTEIN,URINE 3+ (NEGATIVE); UROBILINOGEN,URINE NORMAL (NORMAL)
[2018-05-28 15:52] LABS: SQUAMOUS EPITHELIAL CELL,UR >50 /HPF
[2018-05-28 15:53] LABS: YEAST,URINE MODERATE /HPF
--- NOTE | 2018-05-28 16:09 | Diagnostic Imaging Report ---
INDICATION: Pleural effusion. EXAMINATION: Chest ultrasound. FINDINGS: Sonographic surveillance shows at least small volume of pleural fluid at the posterior sulcus. IMPRESSION: Small volume of pleural fluid posterior inferiorly visualized sonographically. Dictated by: Dictated on workstation # [id number]
[2018-05-28] MEDS ORDERED: ONDANSETRON 8 MG (ZOFRAN) ORAL DISSOLVE TAB PO ONE (16:45)
--- NOTE | 2018-05-28 16:53 | Consultation ---
History of Present Illness History of Present Illness Patient Consulted On(ken/time) 05/28/18 16:47 Date Seen by Provider: May 28, 2018 Time Seen by Provider: 16:47 History of Present Illness consult requested by Dr. Alcantara for left pleural effusion. seen and evaluated in emergency dept. patient is a 62 year old female with shortness of breath. She states it was worsening last night and took extra 40 mg lasix last night and that seemed to help. Overall though she still is having some difficulty breathing. She was just released from the hospital she states on the and was because she was having a fever when she was supposed to get some blood. Patient has had previous thoracentesis about 2 weeks or more up at . She is weak. She had a chest x ray that I reviewed that shows some effusion of left chest and left basilar consolidation. We did a bedside u/s of the left chest that I did not see a significant amount of fluid that would be safely drained. No other complaints at this time. Denies fever sweats chills or chest pain at this time. Allergies and Home Medications Allergies Coded Allergies: Gkqgxxz-Wix-Oxj Reductase Inhibitor (Verified Allergy, Intermediate, GI UPSET, N/V, 11/06/17) cefadroxil (Unverified Allergy, Mild, 01/01/17) Home Medications Aspirin 81 Mg Tablet.dr, 81 MG PO DAILY, (Reported) Cetirizine HCl 10 Mg Tablet, 10 MG PO DAILY, (Reported) Diltiazem HCl 180 Mg Capsule.er, 180 MG PO DAILY, (Reported) Diphenhydramine HCl 25 Mg Capsule, 25 MG PO Q6H PRN for ALLERGIES, (Reported) Folic Acid 1 Mg Tablet, 1 MG PO DAILY, (Reported) Furosemide 40 Mg Tablet, 40 MG PO DAILY Prescribed by: JAMES TORRES on 05/25/18 1241 Insulin Aspart 300 Units/3 Ml Solution, 4 UNITS SQ TIDAC, (Reported) Insulin NPH Human Isophane 100 Unit/1 Ml Vial, 14 UNIT SQ DAILY, (Reported) Levothyroxine Sodium 175 Mcg Tablet, 175 MCG PO DAILY, (Reported) Metoprolol Tartrate 100 Mg Tablet, 100 MG PO BID, (Reported) Nitroglycerin 0.4 Mg Tab.subl, 0.4 MG PO UD PRN for CHEST PAIN, (Reported) Omeprazole 40 Mg Capsule.dr, 40 MG PO BID, (Reported) Ondansetron HCl 8 Mg Tablet, 8 MG PO Q8H PRN for NAUSEA/VOMITING-1ST LINE, ( Reported) Potassium Chloride 20 Meq Tablet.er, 20 MEQ PO DAILY, (Reported) Sennosides/Docusate Sodium 1 Each Tablet, 1 TAB PO HS, (Reported) Tizanidine HCl 4 Mg Tablet, 4 MG PO TID PRN for MUSCLE SPASMS, (Reported) Tramadol HCl 50 Mg Tablet, 50 MG PO TID PRN for PAIN-MODERATE, (Reported) Patient Home Medication List Home Medication List Reviewed: Yes Past Vkpmfxe-Qqgsxk-Gretlw Hx Patient Social History Alcohol Use: Rarely Uses Recreational Drug Use: No Smoking Status: Former Smoker Former Smoker, Quit: May 20, 1980 Type Used: Cigarettes Recent Foreign Travel: No Contact w/Someone Who Travel: No Recent Infectious Disease Expo: No Recent Hopitalizations: No Immunizations Up To Date Tetanus Booster (TDap): Unknown PED Vaccines UTD: Yes Date of Pneumonia Vaccine: Jun 23, 2016 Date of Influenza Vaccine: May 18, 2018 Seasonal Allergies Seasonal Allergies: Yes Surgeries History of Surgeries: Yes Surgeries: Adenoidectomy, Cardiac, CABG, Coronary Stent, Orthopedic, Tonsillectomy, Tubal Ligation Respiratory History of Respiratory Disorde: Yes Respiratory Disorders: Sleep Apnea Cardiovascular History of Cardiac Disorders: Yes (CHF, STENT X1) Cardiac Disorders: Atrial Fibrillation, Chronic Edema/Swelling, Coronary Artery Disease, Heart Attack, High Cholesterol, Hypertension Neurological History of Neurological Disord: No Reproductive System Hx Reproductive Disorders: No Sexually Transmitted Disease: No HIV/AIDS: No Female Reproductive Disorders: Denies 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 Genitourinary History of Genitourinary Disor: Yes Genitourinary Disorders: Renal Failure Gastrointestinal History of Gastrointestinal Di: Yes (POSS GI BLEED-CHRONIC GI BLOOD LOSS; POLYP REMOVAL; GASTRITIS ) Gastrointestinal Disorders: Gastroesophageal Reflux, Gastrointestinal Bleed, Diverticulosis, Polyps Musculoskeletal History of Musculoskeletal Dis: Yes Musculoskeletal Disorders: Degenerate Disk Disease, Arthritis, Chronic Back Pain Endocrine History of Endocrine Disorders: Yes (OBESITY) Endocrine Disorders: Diabetes, Non-Insulin dep HEENT History of HEENT Disorders: No Loss of Vision: Denies Hearing Impairment: Denies Cancer History of Cancer: No Psychosocial History of Psychiatric Problem: No Integumentary History of Skin or Integumenta: Yes Skin/Integumentary Disorders: Psoriasis Blood Transfusions History of Blood Disorders: Yes (CHRONIC IRON DEFICIENCY ANEMIA--CHRONIC GI BLOOD LOSS) Adverse Reaction to a Blood Tr: Yes (Antibody JKA) Family Medical History Significant Family History: Hypertension, Stroke, Other Conditions/Hx Family Medial History: Arthritis G8 BROTHER Completed stroke 19 MOTHER FH: anemia 19 MOTHER FH: lupus G8 SISTER FH: throat cancer 19 FATHER Hypertension G8 SISTER Myocardial infarction 19 MOTHER Thyroid disease 19 MOTHER G8 SISTER Review of Systems-General Constitutional: weakness EENTM: no symptoms reported Respiratory: see HPI Cardiovascular: no symptoms reported Genitourinary: no symptoms reported Musculoskeletal: no symptoms reported Skin: no symptoms reported Psychiatric/Neurological: No Symptoms Reported Physical Exam-General Problems Physical Exam Vital Signs Vital Signs - First Documented 05/28/18 14:14 Temp 96.0 Pulse 58 Resp 12 B/P (MAP) 100/60 (73) Pulse Ox 95 O2 Delivery Nasal Cannula O2 Flow Rate 3.00 Capillary Refill : Less Than 3 Seconds General Appearance: no apparent distress (chronically ill) HEENT: PERRL/EOMI Neck: supple Respiratory: no respiratory distress, no accessory muscle use, other ( decreased left) Cardiovascular: regular rate, rhythm Gastrointestinal: non tender, soft Rectal: deferred Back: normal inspection Extremities: swelling 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, no motor/sensory deficits, alert, normal mood/affect, oriented x 3 Skin: warm/dry Lymphatic: no adenopathy Data Review Labs Laboratory Tests 05/28/18 14:07: White Blood Count 5.5, Red Blood Count 2.81L, Hemoglobin 8.7L, Hematocrit 29L, Mean Corpuscular Volume 101H, Mean Corpuscular Hemoglobin 31, Mean Corpuscular Hemoglobin Concent 31L, Red Cell Distribution Width 15.3H, Platelet Count 163, Mean Platelet Volume 10.1, Neutrophils (%) (Auto) 72, Lymphocytes (%) (Auto) 15 , Monocytes (%) (Auto) 7, Eosinophils (%) (Auto) 6, Basophils (%) (Auto) 1, Neutrophils # (Auto) 4.0, Lymphocytes # (Auto) 0.8L, Monocytes # (Auto) 0.4, Eosinophils # (Auto) 0.4H, Basophils # (Auto) 0.0, Sodium Level 140, Potassium Level 4.3, Chloride Level 95L, Carbon Dioxide Level 37H, Anion Gap 8, Blood Urea Nitrogen 33H, Creatinine 1.95H, Estimat Glomerular Filtration Rate 26, BUN/ Creatinine Ratio 17, Glucose Level 219H, Calcium Level 9.3, Corrected Calcium 9.9, Total Bilirubin 0.7, Aspartate Amino Transf (AST/SGOT) 17, Alanine Aminotransferase (ALT/SGPT) 8, Alkaline Phosphatase 64, Total Protein 7.5, Albumin 3.3 05/28/18 15:15: Urine Color YELLOW, Urine Clarity VERY CLOUDYH, Urine pH 5, Urine Specific [place] 1.020, Urine Protein 3+H, Urine Glucose (UA) NEGATIVE, Urine Ketones NEGATIVE, Urine Nitrite NEGATIVE, Urine Bilirubin 1+H, Urine Urobilinogen NORMAL , Urine Leukocyte Esterase 2+H, Urine RBC (Auto) NEGATIVE, Urine RBC NONE, Urine WBC 5-10H, Urine Squamous Epithelial Cells >50H, Urine Crystals NONE, Urine Bacteria NONE, Urine Casts NONE, Urine Mucus NEGATIVE, Urine Yeast MODERATEH, Urine Culture Indicated YES Assessment/Plan Assessment/Plan Assessment/Plan left pleural effusion, left basilar consolidation, chronic anemia, shortness of breath. patient with left pleural effusion that is not large enough for drainage. discussed this with patient and no surgical intervention at this time medical management SABRINA ROSSI DO May 28, 2018 16:53
[2018-05-28 16:58] VITALS: BP 115/51
== END 2018-05-28 17:15 | disposition home or self-care (01) ==
LOC: EDUNIT# 13:47 → ER 13:48
DX: J91.8 Pleural effusion in other conditions classified elsewhere (principal); G47.30 Sleep apnea, unspecified; I48.91 Unspecified atrial fibrillation; I25.10 Atherosclerotic heart disease of native coronary artery without angina pectoris; I25.2 Old myocardial infarction; E78.00 Pure hypercholesterolemia, unspecified; E66.9 Obesity, unspecified; I10 Essential (primary) hypertension; K21.9 Gastro-esophageal reflux disease without esophagitis; E11.9 Type 2 diabetes mellitus without complications; D64.9 Anemia, unspecified; Z87.19 Personal history of other diseases of the digestive system; Z80.0 Family history of malignant neoplasm of digestive organs; Z82.49 Family history of ischemic heart disease and other diseases of the circulatory system; Z87.448 Personal history of other diseases of urinary system; Z68.42 Body mass index [BMI] 45.0-49.9, adult; Z86.010 Personal history of colon polyps; Z95.9 Presence of cardiac and vascular implant and graft, unspecified; Z88.8 Allergy status to other drugs, medicaments and biological substances; Z79.82 Long term (current) use of aspirin; Z79.4 Long term (current) use of insulin; Z87.891 Personal history of nicotine dependence; Z90.89 Acquired absence of other organs; Z95.5 Presence of coronary angioplasty implant and graft; Z98.51 Tubal ligation status
CPT/HCPCS: 36415; 71045; 76604; 80053; 81000; 85025; 87077; 87088; 87186

== ENCOUNTER 2018-05-30 00:35 | Inpatient (IN) | payer OTHER ==
[2018-05-30] VITALS (27 sets, daily range): BP systolic 88–152; BP diastolic 36–83
[~2018-05-30] VITALS: Ht 162.6 cm; Wt 131.1 kg
--- NOTE | 2018-05-30 01:18 | ED Fall/Injury ---
General Chief Complaint: Trauma-Non Activation Stated Complaint: FALL Source: EMS, old records (ALL PMH IS FROM OLD RECORDS--PT UNABLE TO GIVE ANY RELIABLE INFORMATION) Exam Limitations: other (PT IS AN EXTREMELY POOR HISTORIAN AND GIVES MUCH CONFLICTING INFORMATION--TELLS EMS, RN AND MYSELF 3 DIFFERENT ANSWERS FOR NEARLY EVERY QUESTION. ) History of Present Illness Date Seen by Provider: May 30, 2018 Time Seen by Provider: 00:39 Initial Comments PT ARRIVES VIA EMS FROM HOME--CERVICAL COLLAR IN PLACE PT HAD A FALL TONIGHT AROUND 1930--APPARENTLY WAS NOT WITNESSED PT STATES SHE WAS WALKING, AND WAS USING HER WALKER AND SHE FELL--CANNOT GIVE ME ANY OTHER DETAILS ABOUT HER FALL PT STATES SHE COULD NOT GET UP ON HER OWN, AND HER CAME HOME AND FOUND HER ON THE FLOOR--PER EMS, IT TOOK 4 PEOPLE TO GET HER OFF THE FLOOR PT TELLS ME SHE DID HIT HER HEAD AND DID HAVE LOSS OF CONSCIOUSNESS, BUT SHE TOLD EMS AND RN THAT SHE DID NOT HAVE LOSS OF CONSCIOUSNESS AND DID NOT HIT HER HEAD PT C/O LOW BACK PAIN--STATES SHE HAS CHRONIC LOW BACK PAIN NO PARESTHESIAS OR MOTOR DEFICITS UNABLE TO OBTAIN ANY OTHER INFORMATION FROM PT PT MAKING A MULTITUDE OF DEMANDS SOON SHE ARRIVES, EVEN BEFORE SHE IS MOVED OFF THE EMS CART WANTING SOMETHING TO DRINK, WANTS BLANKETS, WANTS EVERYONE TO HURRY, ETC--ONLY WILL TALK ABOUT ALL OF THESE DEMANDS --COMPLETELY FOCUSED ON ALL OF THESE OTHER THINGS, AND DOES NOT WANT TO ANSWER QUESTIONS, OR DISCUSS WHY SHE IS HERE IN THE FIRST PLACE. PT REPEATEDLY WANTING EVERYONE TO "HURRY" WITH LITERALLY ALL INTERVENTIONS DURING ER STAY, AND CONSTANTLY MAKING NEW / REPEATING DEMANDS FOR EVERYTHING, INCLUDING ADJUSTING HER BLANKETS, MORE BLANKETS, WANTING TO BE REPOSITIONED, ETC. THROUGHOUT ER STAY. NO FAMILY IS HERE WITH PT ON ARRIVAL ON REVIEW OF OLD RECORDS, PT WAS ADMITTED 05/20/18-05/25 FOR MULTIPLE REASONS, INCLUDING ANEMIA ( PT HAS CHRONIC ANEMIA AND IS FOLLOWED BY DR. 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 PICC LINE WAS REMOVED AND CULTURED OUT STAPH, AND URINE GREW OUT E.COLI. PT HAD CABG AND PICC LINE PLACEMENT 2 WEEKS PRIOR AT PT HAS LEFT PLEURAL EFFUSION, AND WAS SEEN HERE YESTERDAY FOR SHORTNESS OF BREATH, WHICH IS ONGOING ISSUE WITH KNOWN LEFT PLEURAL EFFUSION, WHICH HAS BEEN TAPPED MULTIPLE TIMES. LAST TIME WAS APPROXIMATELY 2 WEEKS AGO, AND WAS NOT TAPPED WITH MOST RECENT ADMIT AND SURGICAL CONSULT BY DR. ROSSI WAS OBTAINED IN ER YESTERDAY AND NO TAP WAS DONE. PCP: DR. TORRES CORE OVEN TENDER: DR. ALCARAZ HEMATOLOGY: DR. AGARWAL Allergies and Home Medications Allergies Coded Allergies: Wvthsuz-Cth-Xlh Reductase Inhibitor (Verified Allergy, Intermediate, GI UPSET, N/V, 11/06/17) cefadroxil (Unverified Allergy, Mild, 01/01/17) Home Medications Aspirin 81 Mg Tablet.dr, 81 MG PO DAILY, (Reported) Cetirizine HCl 10 Mg Tablet, 10 MG PO DAILY, (Reported) Diltiazem HCl 180 Mg Capsule.er, 180 MG PO DAILY, (Reported) Diphenhydramine HCl 25 Mg Capsule, 25 MG PO Q6H PRN for ALLERGIES, (Reported) Folic Acid 1 Mg Tablet, 1 MG PO DAILY, (Reported) Furosemide 40 Mg Tablet, 40 MG PO DAILY Prescribed by: JAMES TORRES on 05/25/18 1241 Insulin Aspart 300 Units/3 Ml Solution, 4 UNITS SQ TIDAC, (Reported) Insulin NPH Human Isophane 100 Unit/1 Ml Vial, 14 UNIT SQ DAILY, (Reported) Levothyroxine Sodium 175 Mcg Tablet, 175 MCG PO DAILY, (Reported) Metoprolol Tartrate 100 Mg Tablet, 100 MG PO BID, (Reported) Nitroglycerin 0.4 Mg Tab.subl, 0.4 MG PO UD PRN for CHEST PAIN, (Reported) Omeprazole 40 Mg Capsule.dr, 40 MG PO BID, (Reported) Ondansetron HCl 8 Mg Tablet, 8 MG PO Q8H PRN for NAUSEA/VOMITING-1ST LINE, ( Reported) Potassium Chloride 20 Meq Tablet.er, 20 MEQ PO DAILY, (Reported) Sennosides/Docusate Sodium 1 Each Tablet, 1 TAB PO HS, (Reported) Tizanidine HCl 4 Mg Tablet, 4 MG PO TID PRN for MUSCLE SPASMS, (Reported) Tramadol HCl 50 Mg Tablet, 50 MG PO TID PRN for PAIN-MODERATE, (Reported) Patient Home Medication List Home Medication List Reviewed: Yes Review of Systems Review of Systems Constitutional: see HPI Musculoskeletal: see HPI, back pain Past Uxkzzcm-Xngrvq-Jxcwma Hx Patient Social History Alcohol Use: Denies Use Recreational Drug Use: No Smoking Status: Former Smoker Type Used: Cigarettes Former Smoker, Quit: May 20, 1980 Recent Foreign Travel: No Contact w/Someone Who Travel: No Recent Hopitalizations: No Immunizations Up To Date Tetanus Booster (TDap): Unknown PED Vaccines UTD: Yes Date of Pneumonia Vaccine: Jun 23, 2016 Date of Influenza Vaccine: May 18, 2018 Seasonal Allergies Seasonal Allergies: Yes Past Medical History Surgeries: Yes (LEFT ANKLE REPAIR; LEFT KNEE SCOPE X 2; CARDIAC CATHS--STENT X 1; CABG AT AROUND 05/15/18; EGD'S/COLONOSCOPIES/POLYPECTOMY; THORACENTESIS; PICC LINE--REMOVED DUE TO INFECTION) Adenoidectomy, Cardiac, CABG, Coronary Stent, Orthopedic, Tonsillectomy, Tubal Ligation Respiratory: Yes (LEFT PLEURAL EFFUSION) Sleep Apnea Currently Using CPAP: No Currently Using BIPAP: No Cardiac: Yes (CHF, STENT X1; CABG 05/2018; ) Atrial Fibrillation, Chronic Edema/Swelling, Coronary Artery Disease, Heart Attack, High Cholesterol, Hypertension Neurological: No Reproductive Disorders: No Female Reproductive Disorders: Denies 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 Sexually Transmitted Disease: No HIV/AIDS: No Genitourinary: Yes Renal Failure Gastrointestinal: Yes (POSS GI BLEED-CHRONIC GI BLOOD LOSS--GASTRIC ANTRAL VASCAULR ECTASIA; POLYP REMOVAL; GASTRITIS ) Gastroesophageal Reflux, Gastrointestinal Bleed, Diverticulosis, Polyps Musculoskeletal: Yes (POOR AMBULATION--USES WALKER) Degenerate Disk Disease, Arthritis, Chronic Back Pain Endocrine: Yes (OBESITY) Diabetes, Insulin dep HEENT: No Loss of Vision: Denies Hearing Impairment: Denies Cancer: No Psychosocial: No Integumentary: Yes Psoriasis Blood Disorders: Yes (CHRONIC IRON DEFICIENCY ANEMIA--CHRONIC GI BLOOD LOSS-- TRANSFUSIONS TWICE A WEEK--MULTIPLE ANTIBODIES) Adverse Reaction/Blood Tranf: Yes (Antibody JKA) MULTIPLE--TWICE A WEEK Family Medical History Arthritis G8 BROTHER Completed stroke 19 MOTHER FH: anemia 19 MOTHER FH: lupus G8 SISTER FH: throat cancer 19 FATHER Hypertension G8 SISTER Myocardial infarction 19 MOTHER Thyroid disease 19 MOTHER G8 SISTER Hypertension, Stroke, Other Conditions/Hx Physical Exam Vital Signs Vital Signs - First Documented 05/30/18 00:37 Temp 96.7 Pulse 59 Resp 19 B/P (MAP) 111/47 (68) Pulse Ox 92 O2 Delivery Nasal Cannula O2 Flow Rate 3.00 Capillary Refill : Height, Weight, BMI Height: 5'4.00" Weight: 251lbs. 4.0oz. 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 PT REPEATS HERSELF, AND QUESTION TO WHETHER SHE IS SOMEWHAT CONFUSED TO TIME AND SITUATION. ) Skin: normal color, warm/dry, other (NO EXTERNAL EVIDENCE OF TRAUMA) Devyn Coma Score Best Eye Response: (4) Open Spontaneously Best Verbal Response: (5) Oriented Best Motor Response: (6) Obeys Commands Progress/Results/Core Measures Results/Orders Lab Results Laboratory Tests Test 05/30/18 02:15 05/30/18 02:26 Range/Units White Blood Count 8.4 4.3-11.0 10^3/uL Red Blood Count 2.72 L 4.35-5.85 10^6/uL Hemoglobin 8.4 L 11.5-16.0 G/DL Hematocrit 27 L 35-52 % Mean Corpuscular Volume 101 H 80-99 FL Mean Corpuscular Hemoglobin 31 25-34 PG Mean Corpuscular Hemoglobin Concent 31 L 32-36 G/DL Red Cell Distribution Width 15.4 H 10.0-14.5 % Platelet Count 176 130-400 10^3/uL Mean Platelet Volume 9.7 7.4-10.4 FL Neutrophils (%) (Auto) 83 H 42-75 % Lymphocytes (%) (Auto) 7 L 12-44 % Monocytes (%) (Auto) 7 0-12 % Eosinophils (%) (Auto) 4 0-10 % Basophils (%) (Auto) 0 0-10 % Neutrophils # (Auto) 6.9 1.8-7.8 X 10^3 Lymphocytes # (Auto) 0.6 L 1.0-4.0 X 10^3 Monocytes # (Auto) 0.6 0.0-1.0 X 10^3 Eosinophils # (Auto) 0.3 0.0-0.3 10^3/uL Basophils # (Auto) 0.0 0.0-0.1 10^3/uL Prothrombin Time 14.8 H 12.2-14.7 SEC INR Comment 1.2 0.8-1.4 Activated Partial Thromboplast Time 28 24-35 SEC Sodium Level 141 135-145 MMOL/L Potassium Level 4.4 3.6-5.0 MMOL/L Chloride Level 95 L 98-107 MMOL/L Carbon Dioxide Level 33 H 21-32 MMOL/L Anion Gap 13 5-14 MMOL/L Blood Urea Nitrogen 42 H 7-18 MG/DL Creatinine 2.42 H 0.60-1.30 MG/DL Estimat Glomerular Filtration Rate 20 BUN/Creatinine Ratio 17 Glucose Level 204 H 70-105 MG/DL Calcium Level 9.5 8.5-10.1 MG/DL Corrected Calcium 10.1 8.5-10.1 MG/DL Magnesium Level 2.1 1.8-2.4 MG/DL Total Bilirubin 0.8 0.1-1.0 MG/DL Aspartate Amino Transf (AST/SGOT) 16 5-34 U/L Alanine Aminotransferase (ALT/SGPT) 8 0-55 U/L Alkaline Phosphatase 57 40-136 U/L Troponin I < 0.30 <0.30 NG/ML Total Protein 7.3 6.4-8.2 GM/DL Albumin 3.3 3.2-4.5 GM/DL Urine Color CARLIE H Urine Clarity SLIGHTLY CLOUDY Urine pH 5 5-9 Urine Specific [place] 1.015 L 1.016-1.022 Urine Protein 2+ H NEGATIVE Urine Glucose (UA) NEGATIVE NEGATIVE Urine Ketones NEGATIVE NEGATIVE Urine Nitrite NEGATIVE NEGATIVE Urine Bilirubin 2+ H NEGATIVE Urine Urobilinogen NORMAL NORMAL MG/DL Urine Leukocyte Esterase 1+ H NEGATIVE Urine RBC (Auto) NEGATIVE NEGATIVE Urine RBC NONE /HPF Urine WBC 0-2 /HPF Urine Squamous Epithelial Cells 10-25 H /HPF Urine Crystals NONE /LPF Urine Bacteria TRACE /HPF Urine Casts PRESENT /LPF Urine Hyaline Casts 25-50 H /LPF Urine Mucus LARGE H /LPF Urine Culture Indicated NO My Orders Orders - JOSR GILLIS DO Ct Head/Cervical Spine Wo (05/30/18 00:46) Ct Thoracic/Lumbar Spine Wo (05/30/18 00:46) Chest 1 View, Ap/Pa Only (05/30/18 00:46) Pelvis (05/30/18 00:46) Cbc With Automated Diff (05/30/18 01:39) Comprehensive Metabolic Panel (05/30/18 01:39) Magnesium (05/30/18 01:39) Protime With Inr (05/30/18 01:39) Partial Thromboplastin Time (05/30/18 01:39) Troponin I (05/30/18 01:39) Ua Culture If Indicated (05/30/18 01:39) Saline Lock/Iv-Start (05/30/18 01:39) Ekg Tracing (05/30/18 01:39) O2 (05/30/18 01:39) Monitor-Rhythm Ecg Trace Only (05/30/18 01:39) Catheter(Urinary) Insert & Ass 03,15 (05/30/18 02:20) Saline Lock/Iv-Start (05/30/18 03:07) Ns Iv 1000 Ml (Sodium Chloride 0.9%) (05/30/18 03:07) Lorazepam Injection (Ativan Injection) (05/30/18 03:30) Phenazopyridine Tablet (Pyridium Tablet) (05/30/18 03:30) Medications Given in ED Current Medications Medications Dose Ordered Sig/Roberth Route Start Time Stop Time Status Last Admin Dose Admin Sodium Chloride 1,000 ml @ 0 mls/hr Q0M ONCE IV 05/30/18 03:07 05/30/18 03:08 DC 05/30/18 03:14 999 MLS/HR Vital Signs/I&O 05/30/18 05/30/18 05/30/18 00:37 00:37 00:40 Temp 96.7 96.7 Pulse 59 59 Resp 19 19 B/P (MAP) 111/47 (68) 111/47 (68) Pulse Ox 92 92 92 O2 Delivery Nasal Cannula Nasal Cannula Nasal Cannula O2 Flow Rate 3.00 3.00 Progress Progress Note : Progress Note NO DETERIORATION IN PT'S CONDITION DURING ER STAY PT MORE TALKATIVE THE LONGER SHE IS IN ER, BUT IS MORE ARGUMENTATIVE AND MORE DEMANDING AND MORE HOSTILE TOWARD STAFF AND FAMILY AND YELLING AT TIMES. REPEATS SHE NEEDS TO GO TO THE BATHROOM, AND WAS EXPLAINED MULTIPLE TIMES THAT SHE HAS A CATHETER IN, AND THAT IT CAN CAUSE HER TO FEEL LIKE SHE NEEDS TO URINATE, AND SHE STATES/TALKS LOUDLY "I KNOW THAT! " " BUT I GOTTA GO--RIGHT NOW !" "I DON'T CARE--I GOTTA GO" "HURRY UP" "GET ME UP" FAMILY ARRIVE LATER, AND VERIFY THAT THERE WAS NO ONE ELSE AT HOME AT TIME OF INCIDENT. THEY DO NOT SEEM CONCERNED ABOUT PT'S MENTATION--APPARENTLY IS NORMAL FOR PT THEY STATE PT HAS NOT BEEN EATING OR DRINKING MUCH AT ALL Initial ECG Impression Date: May 30, 2018 Initial ECG Impression Time: 01:55 Initial ECG Rate: 57 Initial ECG Rhythm: Normal Sinus Initial ECG Impression: Nonspecific Changes, 1st Degree AV Block Diagnostic Imaging Comments CT HEAD/CERVICAL SPINE-NO ACUTE PROCESS, MILD DISC DEGENERATION AT C5-6 CT THORACIC/LUMBAR SPINE--NO ACUTE PROCESS, MILD LEFT EFFUSION AND ATELECTATIC COLLAPSE OR PATCHY CONSOLIDATION PER [facility] VIA FAX @ 1908 CXR--MILD VASCULAR CONGESTION, POOR INSPIRATION; LEFT EFFUSION PELVIS XRAY--NO ACUTE PROCESS, POOR POSITIONING PENDING RADIOLOGIST REVIEW Reviewed: Reviewed by Me Departure Communication (Admissions) 0318--SPOKE WITH DR. TORRES, ACCEPTS PT FOR ADMIT Impression Primary Impression: UNWITNESSED FALL VS SYNCOPE VS HEAD INJURY WITH LOSS OF CONSCIOUSNESS Additional Impressions: Exacerbation of chronic back pain Dehydration Acute on chronic renal failure Pleural effusion on left Generalized weakness Agitation Confusion Disposition: 09 ADMITTED INPATIENT Condition: Stable Admissions Decision to Admit Reason: Admit from ER (General) Decision to Admit/Date: May 30, 2018 Time/Decision to Admit Time: 03:20 Departure-Patient Inst. Referrals: JAMES TORRES MD (PCP/Family) Primary Care Physician JOSR GILLIS DO May 30, 2018 01:18
[2018-05-30 02:22] LABS: BASOPHILS % (AUTO) 0 % (0-10); EOSINOPHILS # (AUTO) 0.3 10^3/uL (0.0-0.3); EOSINOPHILS % (AUTO) 4 % (0-10); HEMATOCRIT 27 % (35-52); HEMOGLOBIN 8.4 G/DL (11.5-16.0); LYMPHOCYTES # (AUTO) 0.6 X 10^3 (1.0-4.0); LYMPHOCYTES % (AUTO) 7 % (12-44); MEAN CORPUSCULAR HEMOGLOBIN 31 PG (25-34); MEAN CORPUSCULAR HGB CONC 31 G/DL (32-36); MEAN CORPUSCULAR VOLUME 101 FL (80-99); MEAN PLATELET VOLUME 9.7 FL (7.4-10.4); MONOCYTES # (AUTO) 0.6 X 10^3 (0.0-1.0); MONOCYTES % (AUTO) 7 % (0-12); NEUTROPHILS # (AUTO) 6.9 X 10^3 (1.8-7.8); NEUTROPHILS % (AUTO) 83 % (42-75); PLATELET COUNT 176 10^3/uL (130-400); RED BLOOD COUNT 2.72 10^6/uL (4.35-5.85); RED CELL DISTRIBUTION WIDTH 15.4 % (10.0-14.5); WHITE BLOOD COUNT 8.4 10^3/uL (4.3-11.0)
[2018-05-30 02:32] LABS: INR 1.2 (0.8-1.4); PROTHROMBIN TIME PATIENT 14.8 SEC (12.2-14.7)
[2018-05-30 02:40] LABS: ALANINE AMINOTRANSFERASE 8 U/L (0-55); ALBUMIN 3.3 GM/DL (3.2-4.5); ALKALINE PHOSPHATASE 57 U/L (40-136); BILIRUBIN,TOTAL 0.8 MG/DL (0.1-1.0); BUN/CREATININE RATIO 17; CALCIUM 9.5 MG/DL (8.5-10.1); CARBON DIOXIDE 33 MMOL/L (21-32); CHLORIDE 95 MMOL/L (98-107); CREATININE SERUM 2.42 MG/DL (0.60-1.30); GFR ESTIMATED 20; GLUCOSE 204 MG/DL (70-105); MAGNESIUM 2.1 MG/DL (1.8-2.4); POTASSIUM 4.4 MMOL/L (3.6-5.0); SODIUM 141 MMOL/L (135-145); TOTAL PROTEIN 7.3 GM/DL (6.4-8.2)
[2018-05-30] MEDS ORDERED: NS IV 1000 ML 1,000 ML IV ONE (03:07)
[2018-05-30 03:13] LABS: CLARITY,URINE SLIGHTLY CLOUDY; COLOR,URINE AMBER; GLUCOSE, URINE (UA) NEGATIVE (NEGATIVE); KETONES,URINE NEGATIVE (NEGATIVE); LEUKOCYTE ESTERASE ,URINE 1+ (NEGATIVE); NITRITE,URINE NEGATIVE (NEGATIVE); PH,URINE 5 (5-9); PROTEIN,URINE 2+ (NEGATIVE); UROBILINOGEN,URINE NORMAL (NORMAL)
[2018-05-30 03:22] LABS: BACTERIA,URINE TRACE /HPF; WBC,URINE 0-2 /HPF
[2018-05-30 03:23] LABS: BILIRUBIN,URINE 2+ (NEGATIVE); HYALINE CASTS, URINE 25-50 /LPF
[2018-05-30] MEDS ORDERED: PHENAZOPYRIDINE 100 MG (PYRIDIUM) TABLET PO ONE (03:30)
[2018-05-30] MEDS ORDERED: LORazepam INJ 2 MG/ML (ATIVAN) VIAL IVP ONE (03:30)
--- NOTE | 2018-05-30 04:20 | NUR ---
YOLETTE PISANO admitted to room 405-1, with an admitting diagnosis of DEHYDRATION, ACUTE ONSET CHRONIC RENAL FAILURE, CHRONIC ANEMIA, GENERALIZED WEAKNESS, UNWITNESSED FALL VS SYNCOPE VS HEAD INJURY WITH LOSS OF CONSCIOUSNESS, on 05/30/18 from ED via STRETCHER, accompanied by ED STAFF, AND FAMILY .YOLETTE PISANO AND FAMILY introduced to surroundings, call light, bed controls, phone, TV, temperature control, lights, meal times, smoking policy, visitor policy, side rail policy, bathrooms and showers. Patient Rights given to patient in the handbook.YOLETTE PISANO verbalizes understanding that [facility] is not responsible for the loss or damage to any personal effects or valuables that are kept in the patients posession during their hospitalization.
[2018-05-30] MEDS: NS IV 1000 ML 1,000 ML IV SCH ×3 (04:30→19:45)
[2018-05-30 04:46] LABS: BASOPHILS % (AUTO) 0 % (0-10); EOSINOPHILS # (AUTO) 0.3 10^3/uL (0.0-0.3); EOSINOPHILS % (AUTO) 3 % (0-10); HEMATOCRIT 27 % (35-52); HEMOGLOBIN 8.3 G/DL (11.5-16.0); LYMPHOCYTES # (AUTO) 0.6 X 10^3 (1.0-4.0); LYMPHOCYTES % (AUTO) 7 % (12-44); MEAN CORPUSCULAR HEMOGLOBIN 31 PG (25-34); MEAN CORPUSCULAR HGB CONC 30 G/DL (32-36); MEAN CORPUSCULAR VOLUME 101 FL (80-99); MEAN PLATELET VOLUME 10.4 FL (7.4-10.4); MONOCYTES # (AUTO) 0.6 X 10^3 (0.0-1.0); MONOCYTES % (AUTO) 6 % (0-12); NEUTROPHILS % (AUTO) 84 % (42-75); PLATELET COUNT 184 10^3/uL (130-400); RED BLOOD COUNT 2.71 10^6/uL (4.35-5.85); RED CELL DISTRIBUTION WIDTH 15.1 % (10.0-14.5); WHITE BLOOD COUNT 9.6 10^3/uL (4.3-11.0)
[2018-05-30 05:00] LABS: ALBUMIN 3.2 GM/DL (3.2-4.5); BILIRUBIN,TOTAL 0.8 MG/DL (0.1-1.0); CALCIUM 9.1 MG/DL (8.5-10.1); CREATININE SERUM 2.3 MG/DL (0.60-1.30); POTASSIUM 4.4 MMOL/L (3.6-5.0); TOTAL PROTEIN 7.1 GM/DL (6.4-8.2)
[2018-05-30] MEDS ORDERED: LORazepam INJ 2 MG/ML (ATIVAN) VIAL IV PRN (06:15)
--- NOTE | 2018-05-30 06:20 | Diagnostic Imaging Report ---
Indication: Back pain after fall at home. Technique: Routine CT of the thoracic and lumbar spine was performed without contrast. Comparison: None. Discussion: There is a layering small left pleural effusion with either associated atelectasis or pneumonia. The soft tissues are otherwise unremarkable. No significant degenerative disease identified within the thoracic spine. Moderately advanced degenerative disc disease noted diffusely throughout the lumbar spine with additional advanced facet arthropathy. Nondisplaced bilateral L4 pars defect is noted, chronic. No acute compression fracture or subluxation is identified otherwise. Moderate degenerative disease is present within the bilateral sacroiliac joints. Mild S-shaped scoliosis of the thoracolumbar spine with the thoracic spine curved to the right and lumbar spine curved to the left. No sacral fracture identified. Impression: 1. Chronic changes as discussed. No acute fracture identified. 2. Left pleural effusion with associated opacities. 3. Agree with preliminary report. Dictated by: Dictated on workstation # [id number]
--- NOTE | 2018-05-30 06:22 | Diagnostic Imaging Report ---
PROCEDURE: CT head and CT cervical spine without contrast. TECHNIQUE: Multiple contiguous axial images were obtained through the brain and cervical spine without the use of intravenous contrast. Sagittal and coronal reformations through the cervical spine were then performed. Indication: Head and neck pain after fall at home. No loss of consciousness. Comparison: 09/13/2017. Discussion: Head: No adverse interval change. No intracranial hemorrhage, mass, midline shift, or hydrocephalus. The ventricles and sulci are normal size and configuration for age. The visualized orbits, paranasal sinuses, mastoid air cells, and calvarium are unremarkable. Cervical spine: Mild degenerative disc disease is noted from C4-C5 through C6-C7. No acute fracture or subluxation. Overall alignment is anatomic. Paraspinal soft tissues are unremarkable. Impression: 1. Stable negative head CT. 2. Mild degenerative disease within the cervical spine. No acute fracture. 3. Agree with preliminary report. Dictated by: Dictated on workstation # [id number]
--- OUTSIDE RECORDS SUMMARY | 2018-05-30 06:43 | XMS REPORT | Encounter Summary ---
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 Role Phone Carla Wilson MD PCP Naima Field MD Unavailable Winnie Jorge MD Unavailable Encounter Details Care Team Description Date Type Department Dannielle Covington MD [address] [place] [address] 04/28/2018 [facility] Encounter [facility] [address] [place], [place] [address] Social History Date Tobacco Use Types Packs/Day Years Used Quit: 09/28/1981 Former Smoker Cigarettes 2 10 Smokeless Tobacco: Never Used Alcohol Use Drinks/Week oz/Week Comments Yes Seldom Sex Assigned at Date Recorded Not on file Industry Job Start Date Occupation Not on file Not on file Not on file Travel End Travel History Travel Start No recent travel history available. as of this encounter Functional Status Date of Assessment Functional Status Response 03/25/2018 Does the patient have a hearing impairment: No 11/11/2017 Does the patient have a visual impairment: Yes 11/11/2017 Does the patient have impaired ambulation: No 11/11/2017 Does the patient have an activity of daily living No (ADL) impairment: 11/11/2017 Does the patient have an instrumental activity of No daily living (IADL) impairment: Date of Assessment Cognitive Status Response 11/11/2017 Does the patient have a cognitive impairment: Yes as of this encounter Medications at Time of Discharge Start Date End Date Medication Sig Dispensed Refills 02/27/2018 acetaminophen (TYLENOL) Take two 0 325 mg tablet tablets by mouth every 6 hours as needed. 02/27/2018 aspirin 81 mg chewable Chew one 90 tablet 3 tablet tablet by mouth daily with food. cetirizine (ZYRTEC) 10 mg Take 10 mg by 0 tablet mouth every morning. 02/05/2017 clobetasol (TEMOVATE) Apply to 0 0.05 % topical cream affected area twice daily as needed 04/08/2018 diltiazem CD (CARDIZEM Take one 90 capsule 3 CD) 180 mg capsule capsule by mouth daily. diphenhydrAMINE (BENADRYL Take 25 mg by 0 ALLERGY) 25 mg tablet mouth at bedtime as needed. folic acid (FOLVITE) 1 mg Take 1 mg by 0 tablet mouth daily. GLUCOSAMINE Take 1 tablet 0 HCL/CHONDROITIN CALDERON by mouth (GLUCOSAMINE-CHONDROITIN twice daily. PO) 02/27/2018 insulin aspart U-100 Inject four 10 mL 30 (NOVOLOG) 100 unit/mL Units under injection the skin three times daily with meals. 02/27/2018 insulin NPH (HUMULIN N Inject 10 mL 30 NPH U-100 INSULIN) 100 fourteen unit/mL injection Units under the skin every morning. 02/27/2018 Insulin Syringe-Needle Use four 100 each 0 U-100 (BD INSULIN SYRINGE times daily ULTRA-FINE) 0.3 mL 31 with Insulin gauge x 5/16 syrg levothyroxine (SYNTHROID) Take 175 mcg 0 175 mcg tablet by mouth daily 30 minutes before breakfast. 04/08/2018 magnesium oxide (MAG-OX) Take one 180 tablet 3 400 mg (241.3 mg tablet by magnesium) tablet mouth twice daily. metoprolol tartrate Take 100 mg 0 (LOPRESSOR) 100 mg tablet by mouth twice daily. nitroglycerin (NITROSTAT) Place 0.4 mg 0 0.4 mg tablet under tongue every 5 minutes as needed for Chest Pain. Max of 3 tablets, call 911. omeprazole DR(+) Take 40 mg by 0 (PRILOSEC) 40 mg capsule mouth twice daily. ondansetron (ZOFRAN) 8 mg Take 8 mg by 0 tablet mouth every 8 hours as needed for Nausea or Vomiting. 04/08/2018 potassium chloride SR Take one 90 tablet 3 (K-DUR) 20 mEq tablet tablet by mouth daily. Take with a meal and a full glass of water. 04/08/2018 pramoxine/zinc oxide Insert or 28 g 0 (TRONOLANE) 1% / 5% Apply to topical creamIndications: rectal area Hemorrhoids as directed daily as needed (For Hemorrhoids). 02/27/2018 senna/docusate Take two 20 tablet 0 (SENOKOT-S) 8.6/50 mg tablets by tablet mouth twice daily. tiZANidine (ZANAFLEX) 4 Take 4 mg by 0 mg tablet mouth every 6 hours as needed. 04/08/2018 torsemide(+) (DEMADEX) 20 Take two 30 tablet 3 mg tablet tablets by mouth daily. 02/27/2018 traMADol (ULTRAM) 50 mg Take one 30 tablet 0 tablet tablet by mouth every 6 hours as needed for Pain. 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
--- OUTSIDE RECORDS SUMMARY | 2018-05-30 06:43 | XMS REPORT | Clinical Summary ---
Author Author [facility] Organization [facility] Address Unknown Phone Unavailable Care Team Providers Care Change Advisor Name Role Phone Carla Wilson MD PCP Naima Field MD Unavailable Winnie Jorge MD Unavailable Source Comments Some departments are not documenting in the electronic medical record. If you do not see the information that you expected, contact Release of Information in the Health Information Management department at [phone] for further assistance in locating additional records.[facility] Allergies Comments Active Allergy Reactions Severity Noted Date Cefadroxil NAUSEA AND Low 09/28/2017 VOMITING Pravastatin NAUSEA AND Low 09/28/2017 VOMITING Simvastatin NAUSEA AND Low 09/28/2017 VOMITING Sulfa (Sulfonamide RASH Medium 11/11/2017 Antibiotics) Medications End Date Status Medication Sig Dispensed Refills Start Date Active levothyroxine (SYNTHROID) Take 175 mcg 0 175 mcg tablet by mouth daily 30 minutes before breakfast. Active folic acid (FOLVITE) 1 mg Take 1 mg by 0 tablet mouth daily. Active nitroglycerin (NITROSTAT) Place 0.4 mg 0 0.4 mg tablet under tongue every 5 minutes as needed for Chest Pain. Max of 3 tablets, call 911. [address](+) Take 40 mg by 0 (PRILOSEC) 40 mg capsule mouth twice daily. Active GLUCOSAMINE Take 1 tablet 0 HCL/CHONDROITIN CALDERON by mouth (GLUCOSAMINE-CHONDROITIN twice daily. PO) Active ondansetron (ZOFRAN) 8 mg Take 8 mg by 0 tablet mouth every 8 hours as needed for Nausea or Vomiting. Active cetirizine (ZYRTEC) 10 mg Take 10 mg by 0 tablet mouth every morning. Active acetaminophen (TYLENOL) Take two 0 325 mg tablet tablets by 8 mouth every 6 hours as needed. Active senna/docusate Take two 20 tablet 0 (SENOKOT-S) 8.6/50 mg tablets by 8 tablet mouth twice daily. Active aspirin 81 mg chewable Chew one 90 tablet 3 tablet tablet by 8 mouth daily with food. Active traMADol (ULTRAM) 50 mg Take one 30 tablet 0 tablet tablet by 8 mouth every 6 hours as needed for Pain. Active insulin NPH (HUMULIN N Inject 10 mL 30 NPH U-100 INSULIN) 100 fourteen 8 unit/mL injection Units under the skin every morning. Active insulin aspart U-100 Inject four 10 mL 30 (NOVOLOG) 100 unit/mL Units under 8 injection the skin three times daily with meals. Active Insulin Syringe-Needle Use four 100 each 0 U-100 (BD INSULIN SYRINGE times daily 8 ULTRA-FINE) 0.3 mL 31 with Insulin gauge x 5/16 syrg Active metoprolol tartrate Take 100 mg 0 (LOPRESSOR) 100 mg tablet by mouth twice daily. Active clobetasol (TEMOVATE) Apply to 0 0.05 % topical cream affected area 7 twice daily as needed Active tiZANidine (ZANAFLEX) 4 Take 4 mg by 0 mg tablet mouth every 6 hours as needed. Active diphenhydrAMINE (BENADRYL Take 25 mg by 0 ALLERGY) 25 mg tablet mouth at bedtime as needed. Active diltiazem CD (CARDIZEM Take one 90 capsule 3 CD) 180 mg capsule capsule by 8 mouth daily. Active pramoxine/zinc oxide Insert or 28 g 0 (TRONOLANE) 1% / 5% Apply to 8 topical creamIndications: rectal area Hemorrhoids as directed daily as needed (For Hemorrhoids). Active torsemide(+) (DEMADEX) 20 Take two 30 tablet 3 mg tablet tablets by 8 mouth daily. Active magnesium oxide (MAG-OX) Take one 180 tablet 3 400 mg (241.3 mg tablet by 8 magnesium) tablet mouth twice daily. Active potassium chloride SR Take one 90 tablet 3 (K-DUR) 20 mEq tablet tablet by 8 mouth daily. Take with a meal and a full glass of water. Active Problems Problem Noted Date Acute on chronic diastolic heart failure due to coronary artery disease Chronic diastolic heart failure 03/31/2018 Long's esophagus 03/30/2018 Left leg cellulitis 03/29/2018 Pleural effusion on left 03/26/2018 Essential hypertension 02/23/2018 DELROY (acute kidney injury) 02/18/2018 CAD (coronary artery disease), creek coronary artery 02/16/2018 Overview: 02/16/18: CABG x4 (PRIDE to the LAD, reversed SVG in sequence to the OM & left posterolateral arteries, and reversed SVG anastomosed to the posterior descending branch of the RCA). Bilateral modified CryoMaze procedure (pulmonary vein isolation). Suture ligation of left atrial appendage. HLD (hyperlipidemia) 02/16/2018 Hypothyroidism 02/16/2018 Hepatitis B 02/16/2018 Obstructive pattern present on pulmonary function testing 02/16/2018 Thrombocytopenia 02/16/2018 Junctional rhythm 02/16/2018 Type 2 diabetes mellitus with circulatory disorder, without long-term 2017 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 PAF (paroxysmal atrial fibrillation) 02/12/2018 Overview: 02/16/18: Bilateral modified CryoMaze procedure (pulmonary vein isolation) & Suture ligation of left atrial appendage at time of CABG. 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 anemia 11/13/2017 Overview: Added automatically from request for surgery [id number] Resolved Problems Problem Noted Date Resolved Date Acute respiratory failure with hypercapnia 02/18/2018 02/23/2018 Metabolic acidosis 02/18/2018 02/21/2018 Nausea with vomiting, unspecified 02/18/2018 02/23/2018 Vasogenic shock 02/16/2018 02/21/2018 Hyperammonemia 02/16/2018 02/23/2018 Respiratory acidosis 02/16/2018 02/21/2018 Acute blood loss anemia 02/16/2018 03/29/2018 NSTEMI (non-ST elevated myocardial infarction) 02/12/2018 02/23/2018 Encounters Care Team Description Date Type Specialty Antolin Erazo Care Coordination (Hepatology Appt Question) 05/14/2018 Telephone Gastroenterology Lynette Diana MD 05/04/2018 Documentation Transplant Surgery Dannielle Covington MD Results (Chest X-ray) 05/03/2018 Telephone Gastroenterology Unknown, [place], Referral 04/30/2018 Telephone Transplant Surgery Dannielle Covington MD 04/28/2018 Hospital Radiology Encounter Antolin Erazo Dyspnea, unspecified type (Primary Dx); Hepatic cirrhosis, unspecified hepatic cirrhosis type, unspecified whether ascites present (HCC); Esophageal varices without bleeding, unspecified esophageal varices type (HCC); GAVE (gastric antral vascular ectasia); Long's esophagus without dysplasia; Anemia, unspecified type 04/28/2018 Office Visit Gastroenterology Cathy Tejeda MD 04/08/2018 Anesthesia Cardiology Event Sole Diaz, DEUCE 04/07/2018 Anesthesia Event Skinny Marshall MD COLONOSCOPY 04/07/2018 Surgery Grace Alberts, PRIMO 03/29/2018 Anesthesia Event Dannielle Covington MD ESOPHAGOGASTRODUODENOSCOPY 03/29/2018 Surgery Jarad Felix MD Nath, Jayant, MD Bormann, Steven W, MD Titterington, Jane, MD Atrial fibrillation with rapid ventricular response (HCC ) 03/25/2018 Hospital - Encounter 04/08/2018 Sophie Avina RN General Question (tachycardia) 03/25/2018 Telephone Cardiothoracic Surgery Lance Pal MD 03/24/2018 Hospital Cardiology Encounter Lance Pal MD PAF (paroxysmal atrial fibrillation) (HCC) (Primary Dx) 03/24/2018 Office Visit Cardiothoracic Surgery Sophie Avina RN General Question 03/15/2018 Telephone Cardiothoracic Surgery Antolin Erazo Medication Question (Carafate) 03/05/2018 Telephone Gastroenterology Felice Freitas RN Error 03/02/2018 Telephone Cardiothoracic Surgery Felice Freitas RN Post-hospital Follow Up 03/01/2018 Telephone Cardiothoracic Surgery from Last 3 Months Immunizations Name Dates Previously Given Next Due Pneumococcal Vaccine 02/15/2018 (Deferred: ), 02/14/2018 (Deferred: - (23-Ninfa Adult) pt febrile within last 24 hours.) Family History Medical History Relation Name Comments [...] Paternal Grandmother Paternal Uncle Sister Social History Date Tobacco Use Types Packs/Day Years Used Quit: 09/28/1981 Former Smoker Cigarettes 2 10 Smokeless Tobacco: Never Used Alcohol Use Drinks/Week oz/Week Comments Yes Seldom Sex Assigned at Date Recorded Not on file Industry Job Start Date Occupation Not on file Not on file Not on file Travel End Travel History Travel Start No recent travel history available. Last Filed Vital Signs Time Taken Vital Sign Reading 04/28/2018 3:22 PM [facility] Blood Pressure 101/58 04/28/2018 3:22 PM [employer] Pulse 65 04/28/2018 3:22 PM [facility] Temperature 36.4 C (97.5 F) 04/28/2018 3:22 PM [facility] Respiratory Rate 16 04/08/2018 5:13 PM CDT Oxygen Saturation 91% - Inhaled Oxygen - Concentration 04/28/2018 3:22 PM [facility] Weight 114.2 kg (251 lb 12.8 oz) 04/28/2018 3:22 PM [employer] Height 162.6 cm (5' 4") 04/28/2018 3:22 PM [facility] Body Mass Index 43.22 Plan of Treatment Health Maintenance Due Date Last Done Comments PHYSICAL (COMPREHENSIVE) 1964 EXAM HIV SCREENING 1972 DILATED EYE EXAM 1975 DTAP/TDAP VACCINES (1 - 1975 Tdap) FOOT EXAM 1975 MICROALBUMIN 1975 PNEUMONIA VACCINE (DM) 1975 CERVICAL CANCER SCREENING 1987 BREAST CANCER SCREENING 1997 SHINGLES RECOMBINANT 2007 VACCINE (1 of 2) INFLUENZA VACCINE 01/13/2018 03/15/2017 (Previously completed), 04/09/2000, 03/27/1999, Additional history exists HBA1C 08/12/2018 02/12/2018 COLORECTAL CANCER 04/07/2028 04/07/2018 SCREENING HEPATITIS C SCREENING Completed 02/15/2018 Implants Device Identifier Shelf Expiration Date Model / Serial / Lot Implanted Type Area Manufactur er [id number] / [id number] / [id number] Plate Acutie Sternal Closure - N/A: Sternum ACUTE [id number] [employer]OVATION Implanted: Qty: 2 on 02/16/2018 by Lance oCnte MD [id number] / [id number] / [id number] Plate Acutie Sternal Closure - N/A: Sternum ACUTE [id number] [employer]OV[employer] Implanted: Qty: 1 on 02/16/2018 by Lance Conte MD Procedures Comments Procedure Name Priority Date/Time Associated Diagnosis CHEST 2 VIEWS STAT 04/28/2018 Dyspnea, unspecified type 5:31 PM [facility] ECG-SCAN 04/24/2018 5:40 PM [employer] TELEMETRY STRIPS-SCAN 04/16/2018 12:49 PM CDT ECG-SCAN 04/13/2018 5:02 PM CDT TELEMETRY STRIPS-SCAN 04/09/2018 3:24 PM CDT POC GLUCOSE 04/08/2018 5:04 PM CDT TODD W/O CONTRAST & W/ 3D Routine 04/08/2018 ON CART 4:06 PM CDT POC GLUCOSE 04/08/2018 12:41 PM CDT POC GLUCOSE 04/08/2018 11:56 AM CDT POC GLUCOSE 04/08/2018 8:37 AM CDT MAGNESIUM Routine 04/08/2018 5:00 AM CDT PTT (APTT) Routine 04/08/2018 5:00 AM CDT BASIC METABOLIC PANEL Routine 04/08/2018 5:00 AM CDT CBC Routine 04/08/2018 5:00 AM CDT PROTIME INR (PT) Routine 04/08/2018 5:00 AM CDT POC GLUCOSE 04/07/2018 9:00 PM CDT POC GLUCOSE 04/07/2018 5:59 PM CDT POC GLUCOSE 04/07/2018 2:29 PM CDT COLONOSCOPY 04/07/2018 12:07 PM CDT COLONOSCOPY 04/07/2018 Hematochezia 11:50 AM CDT POC GLUCOSE 04/07/2018 7:56 AM CDT CHEST SINGLE VIEW Routine 04/07/2018 6:43 AM CDT MAGNESIUM Routine 04/07/2018 4:25 AM CDT PTT (APTT) Routine 04/07/2018 4:25 AM CDT BASIC METABOLIC PANEL Routine 04/07/2018 4:25 AM CDT CBC Routine 04/07/2018 4:25 AM CDT PROTIME INR (PT) Routine 04/07/2018 4:25 AM CDT POC GLUCOSE 04/06/2018 9:06 PM CDT POC GLUCOSE 04/06/2018 6:04 PM CDT POC GLUCOSE 04/06/2018 11:56 AM CDT POC GLUCOSE 04/06/2018 8:49 AM CDT CHEST SINGLE VIEW Routine 04/06/2018 6:30 AM CDT MAGNESIUM Add on 04/06/2018 3:00 AM CDT IRON + BINDING CAPACITY + Add on 04/06/2018 %SAT+ FERRITIN 3:00 AM CDT FOLATE, SERUM Add on 04/06/2018 3:00 AM CDT VITAMIN B12 Add on 04/06/2018 3:00 AM CDT PTT (APTT) Routine 04/06/2018 3:00 AM CDT BASIC METABOLIC PANEL Routine 04/06/2018 3:00 AM CDT CBC Routine 04/06/2018 3:00 AM CDT PROTIME INR (PT) Routine 04/06/2018 3:00 AM CDT CBC Routine 04/05/2018 9:48 PM CDT POC GLUCOSE 04/05/2018 9:00 PM CDT POC GLUCOSE 04/05/2018 4:17 PM CDT PTT (APTT) Routine 04/05/2018 2:10 PM CDT CBC Add on 04/05/2018 2:10 PM CDT POC GLUCOSE 04/05/2018 1:48 PM CDT POC GLUCOSE 04/05/2018 9:03 AM CDT CHEST SINGLE VIEW Routine 04/05/2018 6:11 AM CDT MAGNESIUM Add on 04/05/2018 4:24 AM CDT PTT (APTT) Routine 04/05/2018 4:24 AM CDT BASIC METABOLIC PANEL Routine 04/05/2018 4:24 AM CDT CBC Routine 04/05/2018 4:24 AM CDT PROTIME INR (PT) Routine 04/05/2018 4:24 AM CDT POC GLUCOSE 04/04/2018 8:15 PM CDT POC GLUCOSE 04/04/2018 1:22 PM CDT POC GLUCOSE 04/04/2018 6:53 AM CDT CHEST SINGLE VIEW Routine 04/04/2018 5:11 AM CDT MAGNESIUM Routine 04/04/2018 4:34 AM CDT BASIC METABOLIC PANEL Routine 04/04/2018 4:34 AM CDT CBC Routine 04/04/2018 4:34 AM CDT PTT (APTT) STAT 04/04/2018 4:34 AM CDT PROTIME INR (PT) Routine 04/04/2018 4:34 AM CDT POC GLUCOSE 04/03/2018 8:55 PM CDT HEMOGLOBIN & HEMATOCRIT STAT 04/03/2018 8:11 PM CDT POC GLUCOSE 04/03/2018 7:53 PM CDT POC GLUCOSE 04/03/2018 4:54 PM CDT POC GLUCOSE 04/03/2018 11:46 AM CDT POC GLUCOSE 04/03/2018 6:24 AM CDT CHEST SINGLE VIEW Routine 04/03/2018 6:05 AM CDT PTT (APTT) STAT 04/03/2018 4:24 AM CDT MAGNESIUM Routine 04/03/2018 4:24 AM CDT BASIC METABOLIC PANEL Routine 04/03/2018 4:24 AM CDT CBC Routine 04/03/2018 4:24 AM CDT PTT (APTT) STAT 04/02/2018 9:04 PM CDT POC GLUCOSE 04/02/2018 8:52 PM CDT POC GLUCOSE 04/02/2018 5:15 PM CDT PTT (APTT) STAT 04/02/2018 2:00 PM CDT POC GLUCOSE 04/02/2018 11:38 AM CDT POC GLUCOSE 04/02/2018 6:57 AM CDT PTT (APTT) STAT 04/02/2018 5:20 AM CDT MAGNESIUM Routine 04/02/2018 5:20 AM CDT BASIC METABOLIC PANEL Routine 04/02/2018 5:20 AM CDT CBC Routine 04/02/2018 5:20 AM CDT CHEST SINGLE VIEW Routine 04/02/2018 4:54 AM CDT PTT (APTT) STAT 04/01/2018 11:24 PM CDT CBC AND DIFF STAT 04/01/2018 11:24 PM CDT POC GLUCOSE 04/01/2018 9:[address] HEAD WO CONTRAST Routine 04/01/2018 7:51 PM CDT BASIC METABOLIC PANEL Routine 04/01/2018 7:27 PM CDT POC GLUCOSE 04/01/2018 5:57 PM CDT POC GLUCOSE 04/01/2018 12:13 PM CDT BLOOD GASES, PERIPHERAL Routine 04/01/2018 VENOUS 11:55 AM CDT CREATININE-URINE RANDOM Routine 04/01/2018 11:40 AM CDT UREA NITROGEN-URINE Routine 04/01/2018 RANDOM 11:40 AM CDT SODIUM-URINE RANDOM Routine 04/01/2018 11:40 AM CDT UA REFLEX CULTURE LABEL Routine 04/01/2018 11:40 AM CDT URINALYSIS MICROSCOPIC Routine 04/01/2018 REFLEX TO CULTURE 11:40 AM CDT URINALYSIS DIPSTICK Routine 04/01/2018 REFLEX TO CULTURE 11:40 AM CDT EOSINOPHIL STAIN Routine 04/01/2018 11:40 AM CDT CONSULT IV THERAPY TEAM STAT 04/01/2018 9:34 AM CDT POC GLUCOSE 04/01/2018 8:25 AM CDT URIC ACID Routine 04/01/2018 7:50 AM CDT CREATINE KINASE-CPK Routine 04/01/2018 7:50 AM CDT MAGNESIUM Routine 04/01/2018 7:50 AM CDT CBC AND DIFF Routine 04/01/2018 7:50 AM CDT BASIC METABOLIC PANEL Routine 04/01/2018 7:50 AM CDT CHEST SINGLE VIEW Routine 04/01/2018 6:20 AM CDT BLOOD GASES, ARTERIAL Routine 03/31/2018 11:57 PM CDT CULTURE-BLOOD STAT 03/31/2018 W/SENSITIVITY 9:58 PM CDT LACTIC ACID (BG - RAPID STAT 03/31/2018 LACTATE) 9:50 PM CDT CULTURE-BLOOD STAT 03/31/2018 W/SENSITIVITY 9:50 PM CDT CONSULT IV THERAPY TEAM Routine 03/31/2018 9:23 PM CDT POC GLUCOSE 03/31/2018 9:12 PM CDT POC GLUCOSE 03/31/2018 5:48 PM CDT COMPREHENSIVE METABOLIC Routine 03/31/2018 PANEL 3:35 PM CDT POC GLUCOSE 03/31/2018 12:17 PM CDT 2-D + DOPPLER Routine 03/31/2018 ECHOCARDIOGRAM 11:57 AM CDT CHEST SINGLE VIEW STAT 03/31/2018 11:06 AM CDT CHEST 2 VIEWS STAT 03/31/2018 8:17 AM CDT POC GLUCOSE 03/31/2018 7:34 AM CDT CHEST SINGLE VIEW STAT 03/31/2018 4:50 AM CDT BLOOD GASES, ARTERIAL STAT 03/31/2018 4:45 AM CDT COMPREHENSIVE METABOLIC Routine 03/31/2018 PANEL 3:50 AM CDT CBC AND DIFF Routine 03/31/2018 3:50 AM CDT POC GLUCOSE 03/30/2018 9:31 PM CDT POC GLUCOSE 03/30/2018 5:25 PM CDT US RENAL BLADDER LTD Routine 03/30/2018 4:21 PM CDT POC GLUCOSE 03/30/2018 12:48 PM CDT OSMOLALITY-URINE RANDOM Routine 03/30/2018 12:31 PM CDT UREA NITROGEN-URINE Routine 03/30/2018 RANDOM 12:31 PM CDT CREATININE-URINE RANDOM Routine 03/30/2018 12:31 PM CDT UA REFLEX CULTURE LABEL Routine 03/30/2018 12:30 PM CDT URINALYSIS MICROSCOPIC Routine 03/30/2018 REFLEX TO CULTURE 12:30 PM CDT URINALYSIS DIPSTICK Routine 03/30/2018 REFLEX TO CULTURE 12:30 PM CDT TELEMETRY STRIPS-SCAN 03/30/2018 11:43 AM CDT POC GLUCOSE 03/30/2018 9:02 AM CDT COMPREHENSIVE METABOLIC Routine 03/30/2018 PANEL 4:10 AM CDT CBC AND DIFF Routine 03/30/2018 4:10 AM CDT CHEST SINGLE VIEW SUNG 03/30/2018 3:08 AM CDT CONSULT IV THERAPY TEAM STAT 03/29/2018 9:23 PM CDT POC GLUCOSE 03/29/2018 8:42 PM CDT POC GLUCOSE 03/29/2018 5:07 PM CDT ECG 12-LEAD Routine 03/29/2018 4:26 PM CDT OSMOLALITY-URINE RANDOM Routine 03/29/2018 4:02 PM CDT UREA NITROGEN-URINE Routine 03/29/2018 RANDOM 4:02 PM CDT SODIUM-URINE RANDOM Routine 03/29/2018 4:02 PM CDT CREATININE-URINE RANDOM Routine 03/29/2018 4:02 PM CDT POC GLUCOSE 03/29/2018 11:33 AM CDT POC GLUCOSE 03/29/2018 10:32 AM CDT ESOPHAGOGASTRODUODENOSCOP 03/29/2018 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) POC GLUCOSE 03/29/2018 8:37 AM CDT EGD REPORT 03/29/2018 7:42 AM CDT COMPREHENSIVE METABOLIC Routine 03/29/2018 PANEL 5:00 AM CDT CBC AND DIFF Routine 03/29/2018 5:00 AM CDT CONSULT IV THERAPY TEAM Routine 03/29/2018 2:01 AM CDT POC GLUCOSE 03/28/2018 9:23 PM CDT POC GLUCOSE 03/28/2018 5:14 PM CDT POC GLUCOSE 03/28/2018 1:13 PM CDT POC GLUCOSE 03/28/2018 9:24 AM CDT COMPREHENSIVE METABOLIC Routine 03/28/2018 PANEL 4:50 AM CDT CBC AND DIFF Routine 03/28/2018 4:50 AM CDT CONSULT IV THERAPY TEAM Routine 03/28/2018 4:00 AM CDT POC GLUCOSE 03/27/2018 9:23 PM CDT POC GLUCOSE 03/27/2018 6:31 PM CDT ECG-SCAN 03/27/2018 11:10 AM CDT ECG-SCAN 03/27/2018 11:05 AM CDT POC GLUCOSE 03/27/2018 9:59 AM CDT POC GLUCOSE 03/27/2018 7:37 AM CDT COMPREHENSIVE METABOLIC Routine 03/27/2018 PANEL 5:30 AM CDT CBC AND DIFF Routine 03/27/2018 5:30 AM CDT CONSULT IV THERAPY TEAM Routine 03/27/2018 5:06 AM CDT URINALYSIS, MICROSCOPIC STAT 03/27/2018 2:59 AM CDT URINALYSIS DIPSTICK STAT 03/27/2018 2:59 AM CDT TRANSFUSE RBC'S Routine 03/26/2018 NON-BLEEDING PT 10:53 PM CDT POC GLUCOSE 03/26/2018 9:29 PM CDT CONSULT IV THERAPY TEAM Routine 03/26/2018 4:08 PM CDT POC GLUCOSE 03/26/2018 3:10 PM CDT CHEST X-RAY STAT 03/26/2018 INSPIRATION/EXPIRATION 1:41 PM CDT CHEST IMMEDIATE POST STAT 03/26/2018 PROCEDURE INSP/EXP 12:40 PM CDT IR ASPIRATION/DRAIN Routine 03/26/2018 12:21 PM CDT ECG 12-LEAD Routine 03/26/2018 11:25 AM CDT POC GLUCOSE 03/26/2018 7:57 AM CDT CBC AND DIFF 03/26/2018 2:02 AM CDT COMPREHENSIVE METABOLIC 03/26/2018 PANEL 2:02 AM CDT TROPONIN-I Routine 03/26/2018 2:02 AM CDT CONSULT IV THERAPY TEAM Routine 03/26/2018 1:30 AM CDT POC GLUCOSE 03/25/2018 9:25 PM CDT CULTURE-BLOOD 03/25/2018 W/SENSITIVITY 8:58 PM CDT TYPE & CROSSMATCH Routine 03/25/2018 8:53 PM CDT PHOSPHORUS Routine 03/25/2018 8:53 PM CDT MAGNESIUM Routine 03/25/2018 8:53 PM CDT LACTIC ACID (BG - RAPID STAT 03/25/2018 LACTATE) 8:53 PM CDT TROPONIN-I Routine 03/25/2018 8:53 PM CDT CULTURE-BLOOD STAT 03/25/2018 W/SENSITIVITY 8:53 PM CDT CONSULT IV THERAPY TEAM Routine 03/25/2018 8:[address] HEAD WO CONTRAST STAT 03/25/2018 6:23 PM CDT US DOPPLER VENOUS W EXTRM STAT 03/25/2018 LEFT 6:17 PM CDT BNP POC ER 03/25/2018 4:16 PM CDT POC TROPONIN 03/25/2018 4:09 PM CDT PHOSPHORUS STAT 03/25/2018 4:07 PM CDT MAGNESIUM STAT 03/25/2018 4:07 PM CDT COMPREHENSIVE METABOLIC STAT 03/25/2018 PANEL 4:07 PM CDT CBC AND DIFF STAT 03/25/2018 4:07 PM CDT CHEST SINGLE VIEW STAT 03/25/2018 3:50 PM CDT ECG 12-LEAD STAT 03/25/2018 3:40 PM CDT ECG 12-LEAD STAT 03/25/2018 2:35 PM CDT ECG-SCAN 03/25/2018 2:30 PM CDT TELEMETRY STRIPS-SCAN 03/12/2018 11:58 AM CDT TELEMETRY STRIPS-SCAN 03/12/2018 9:39 AM CDT ECG-SCAN 03/12/2018 9:38 AM CDT ECG-SCAN 03/12/2018 9:35 AM CDT ECG-SCAN 03/12/2018 9:28 AM CDT ECG-SCAN 03/05/2018 10:13 AM CDT ECG-SCAN 03/04/2018 3:16 PM CDT ECG-SCAN 03/04/2018 3:15 PM CDT ECG-SCAN 03/04/2018 3:15 PM CDT ECG-SCAN 03/04/2018 3:15 PM CDT PROCEDURE RECORD-SCAN 03/01/2018 12:03 PM CDT from Last 3 Months Results * CHEST 2 VIEWS (04/28/2018 5:31 PM [facility]) Only the most recent of 2 results within the time period is included. Impressions Performed At Improving edema with a persistent left pleural effusion and bibasilar [facility] atelectasis. Approved by Emily Beckford M.D. on 04/29/2018 10:11 AM By my electronic signature, I attest that I have personally reviewed the images for this examination and formulated the interpretations and opinions expressed in this report Finalized by Edda Harden M.D. on 04/29/2018 10:50 AM. Dictated by Emily Beckford M.D. on 04/29/2018 8:08 AM. Narrative Performed At Procedure: CHEST 2 VIEWS [facility] Clinical Indication: Shortness of breath Comparison: Chest x-ray 04/07/2018 Findings: Prior median sternotomy and CABG. Persistent enlargement of the cardiomediastinal silhouette with improving edema. Persistent left pleural effusion and bibasilar atelectasis. No pneumothorax. Procedure Note Interface, Radiant Results - 04/29/2018 10:53 AM [facility] Procedure: CHEST 2 VIEWS Clinical Indication: Shortness of breath Comparison: Chest x-ray 04/07/2018 Findings: Prior median sternotomy and CABG. Persistent enlargement of the cardiomediastinal silhouette with improving edema. Persistent left pleural effusion and bibasilar atelectasis. No pneumothorax. IMPRESSION Improving edema with a persistent left pleural effusion and bibasilar atelectasis. Approved by Emily Beckford M.D. on 04/29/2018 10:11 AM By my electronic signature, I attest that I have personally reviewed the images for this examination and formulated the interpretations and opinions expressed in this report Finalized by Edda Harden M.D. on 04/29/2018 10:50 AM. Dictated by Emily Beckford M.D. on 04/29/2018 8:08 AM. Performing Organization Address City/State/Zipcode Phone Number [facility] * ECG-SCAN (04/24/2018 5:40 PM [facility]) Narrative Performed At Ordered by an unspecified provider. * TELEMETRY STRIPS-SCAN (04/16/2018 12:49 PM CDT) Narrative Performed At Ordered by an unspecified provider. * ECG-SCAN (04/13/2018 5:02 PM CDT) Narrative Performed At Ordered by an unspecified provider. * TELEMETRY STRIPS-SCAN (04/09/2018 3:24 PM CDT) Narrative Performed At Ordered by an unspecified provider. * POC GLUCOSE (04/08/2018 5:04 PM CDT) Only the most recent of 57 results within the time period is included. Glucose, POC 91 70 - 100 MG/DL [facility] Performing Organization Address City/State/Zipcode Phone Number [facility] [address] [address] * TRANSESOPHAGEAL ECHOCARDIOGRAM (04/08/2018 4:06 PM CDT) BSA 2.19 m2 OTHER OUTSIDE LAB CV ECHO PV WOOD BORER Marisa MACKAY, Anesthesia Team OTHER [facility] Interp Only Spot Welder Line Charu Golden OTHER OUTSIDE LAB Cardiology Ultrasound Siemens [id number] OTHER OUTSIDE LAB Machine TV rest pulmonary artery 30 mmHg OTHER [facility]IDE LAB pressure AV peak velocity 1.3 m/s OTHER OUTSIDE LAB ECHO EF 55 % OTHER OUTSIDE LAB Vn Nyquist 0.26 m/s OTHER OUTSIDE LAB Radius 0.5 cm OTHER OUTSIDE LAB Mr max kenrick 4.4 m/s OTHER OUTSIDE LAB MR PISA EROA 0.09 cm2 OTHER OUTSIDE LAB Sinus 3.2 2.7 - 3.3 cm OTHER OUTSIDE LAB Narrative Performed At OTHER OUTSIDE LAB TODD: 1. The left atrial appendage appears to have been externally ligated. There is residual flow by color Doppler through a very small central channel. This was demonstrated on both 2D and 3D imaging.There was no thrombus visualized in the left atrial appendage utilizing multiple views and color flow Doppler 2. Interatrial septal aneurysm present.Patent foramen ovale present with bi-directional shunting indicated by color flow Doppler and saline contrast. 3. No evidence of valvular vegetations 4. Normal left ventricle size and systolic function, EF ~ 55-60% 5. Mildly dilated RV cavity with mildly reduced qualitative systolic function 6. Moderate LA enlargement.Severe RA enlargement. 7. Moderate tricuspid regurgitation 8. Mild mitral regurgitation 9. Estimated peak systolic PA pressure=30 mmHg + CVP 10. Mild plaquing in the descending and transverse thoracic aorta 11. No pericardial effusion There are no prior [facility] studies for comparison. Compared with the prior TTE study on 03-31-18, there has been no significant interval changes in structure or function.Visualization was better on current study.LV function was relatively hyperdynamic on the contrasted images from the prior study. Performing Organization Address City/[facility] Phone Number OTHER OUT[facility]IDE LAB * PTT (APTT) (04/08/2018 5:00 AM CDT) Only the most recent of 11 results within the time period is included. APTT 30.2Comment: NOTE NEW 20.0 - 36.0 SEC [facility] REFERENCE RANGES Specimen Blood Performing Organization Address [facility] Phone Number [facility] [id number] [place] [address] * PROTIME INR (PT) (04/08/2018 5:00 AM CDT) Only the most recent of 5 results within the time period is included. INR 1.6 (H) 0.8 - 1.2 [facility] MAIN [facility] Specimen Blood Performing Organization Address [facility] Phone Number [facility] MAIN [facility] [address] [place] [address] * CBC (04/08/2018 5:00 AM CDT) Only the most recent of 9 results within the time period is included. White Blood Cells 4.4 (L) 4.5 - 11.0 K/UL [facility] MAIN [facility] RBC 2.59 (L) 4.0 - 5.0 M/UL [facility] Hemoglobin 8.1 (L) 12.0 - 15.0 GM/DL [facility] MAIN [facility] Hematocrit 25.0 (L) 36 - 45 % [facility] MAIN [facility] MCV 96.6 80 - 100 FL [facility] MAIN [facility] MCH 31.4 26 - 34 PG [facility]IN [facility] MCHC 32.5 32.0 - 36.0 G/DL [facility]IN [facility] RDW 17.8 (H) 11 - 15 % [facility]IN [facility] Platelet Count 129 (L) 150 - 400 K/UL [facility] MAIN LAB MPV 8.8 7 - 11 FL [facility] MAIN [facility] Specimen Blood Performing Organization Address [facility] Phone Number [facility] [address] [place] [address] * MAGNESIUM (04/08/2018 5:00 AM CDT) Only the most recent of 10 results within the time period is included. Magnesium 2.3 1.6 - 2.6 mg/dL MAIN LAB Specimen Blood Performing Organization Address City/[facility] Phone Number [facility] [address] [place] [address] * BASIC METABOLIC PANEL (04/08/2018 5:00 AM CDT) Only the most recent of 9 results within the time period is included. Sodium 136 (L) 137 - 147 MMOL/L [facility] Potassium 4.2 3.5 - 5.1 MMOL/L [facility] Chloride 93 (L) 98 - 110 MMOL/L [facility] CO2 36 (H) 21 - 30 MMOL/L [facility] Anion Gap 7 3 - 12 [facility] Glucose 135 (H) 70 - 100 MG/DL [facility] Blood Urea Nitrogen 32 (H) 7 - 25 MG/DL [facility] Creatinine 1.44 (H) 0.4 - 1.00 MG/DL [facility] Calcium 9.4 8.5 - 10.6 MG/DL [facility] eGFR Non 37 (L) >60 mL/min [facility] Comment: The eGFR is not validated for use in drug dosing adjustments.Continue to use estimated creatinine clearance per dosing reference text.Please contact the Clinical Pharmacist for questions. eGFR 45 (L) >60 mL/min [facility] Comment: The eGFR is not validated for use in drug dosing adjustments.Continue to use estimated creatinine clearance per dosing reference text.Please contact the Clinical Pharmacist for questions. Specimen Blood Performing Organization Address [facility] Phone Number [facility] [address] [place] [address] * COLONOSCOPY (04/07/2018 12:07 PM CDT) Provation Report Patient Name: Donnie CASTILLO OTHER RESULTS Procedure Date: 04/07/2018 12:07 PM CSN: [id number] Date of : 1955 Gender: Female Attending Physician: Skinny Marshall MD Procedure: Colonoscop y Indications: Hematochezia Providers: Skinny Marshall MD (Doctor), Conner Martines MD (Fellow), Mariana Suarez RN (NurseElvia Hansen, Reporting Consultant (Reporting Consultant) Referring Physician: Felisa Sneed Medications: Monitored Anesthesia Care Complications: No immediate complications. Procedure: Pre-Anesthesia Assessment: - Prior to the procedure, a History and Physical was performed, and patient medications and allergies were reviewed. The patient's tolerance of previous anesthesia was also reviewed. The risks and benefits of the procedure and the sedation options and risks were discussed with the patient. All questions were answered, and informed consent was obtained. Prior Anticoagulants: The patient has taken heparin, last dose was 3 days prior to procedure. ASA Grade Assessment: III - A patient with severe systemic disease. After reviewing the risks and benefits, the patient was deemed in satisfactory condition to undergo the procedure. After I obtained informed consent, the scope was passed under direct vision. Throughout the procedure, the patient's blood pressure, pulse, and oxygen saturations were monitored continuously. The Colonoscope was introduced through the anus and advanced to the cecum, identified by appendiceal orifice and ileocecal valve. The colonoscopy was performed without difficulty. The patient tolerated the procedure well. The terminal ileum, ileocecal valve, appendiceal orifice, and rectum were photographed. The quality of the bowel preparation was poor. Findings: The terminal ileum appeared normal. A diffuse area of mildly erythematous mucosa was found in the ascending colon and in the cecum. A 5 mm polyp was found in the transverse colon. The polyp was sessile. Polypectomy was not attempted due to the patient having a bleeding A flat erythematous lesion was found in the transverse colon. Resection not attempted due to patient presenting with bleeding. A few small-mouthed diverticula were found in the sigmoid colon. They were not bleeding. Non-bleeding external hemorrhoids were found during retroflexion. The hemorrhoids were medium-sized. Impression: - Preparation of the colon was poor. - The examined portion of the ileum was normal. - Erythematous mucosa in the ascending colon and in the cecum, probably congestive colopathy. - One 5 mm polyp in the transverse colon. Resection not attempted. - Erythematous flat lesion in the transverse colon. - Diverticulosis in the sigmoid colon. Not bleeding. - Non-bleeding external hemorrhoids. - No specimens collected. Estimated Blood Loss: Estimated blood loss was minimal. Recommendation: - Patient has a contact number available for emergencies. The signs and symptoms of potential delayed complications were discussed with the patient. Return to normal activities tomorrow. Written discharge instructions were provided to the patient. - Resume previous diet. - Continue present medications. - Repeat colonoscopy at appointment to be scheduled because the bowel preparation was suboptimal. Scope In: 12:22:59 PM Scope Out: 12:47:32 PM Scope Withdrawal Time 0 hours 16 minutes 36 seconds Total Procedure Duration Time 0 hours 24 minutes 33 seconds Attending Participation: I personally performed the entire procedure. MD Skinny Bean MD 04/07/2018 6:06:40 PM The attending physician has electronically signed and finalized this document. Conner Martines MD Number of Addenda: 0 Note Initiated On: 04/07/2018 12:07 PM Performing Organization Address City/State/Zipcode Phone Number [facility] OTHER RESULTS * CHEST SINGLE VIEW (04/07/2018 6:43 AM CDT) Only the most recent of 11 results within the time period is included. Impressions Performed At Persistent left pleural effusion associated with atelectasis of left lower lobe. [facility] RAD RESULTS Stable cardiomegaly and mediastinal widening with interval improvement in pulmonary vascular congestion. Finalized by Eddy Hauser M.D. on 04/07/2018 8:31 AM. Dictated by Eddy Hauser M.D. on 04/07/2018 8:29 AM. Narrative Performed At CHEST SINGLE VIEW [facility] RAD RESULTS History: pleural effusion. Technique: Single portable AP upright view of the chest was obtained. Comparison: Comparison is made to an examination of the previous day.. Findings: Changes of prior sternotomy are again identified. There is unchanged cardiomegaly and widening of the mediastinum. There has been improvement in the degree of pulmonary vascular congestion. Left pleural effusion persists. Atelectasis left lower lobe is unchanged. No pneumothorax is detected. Procedure Note Interface, [facility]iant Results - 04/07/2018 8:34 AM CDT CHEST SINGLE VIEW History: pleural effusion. Technique: Single portable AP upright view of the chest was obtained. Comparison: Comparison is made to an examination of the previous day.. Findings: Changes of prior sternotomy are again identified. There is unchanged cardiomegaly and widening of the mediastinum. There has been improvement in the degree of pulmonary vascular congestion. Left pleural effusion persists. Atelectasis left lower lobe is unchanged. No pneumothorax is detected. IMPRESSION Persistent left pleural effusion associated with atelectasis of left lower lobe. Stable cardiomegaly and mediastinal widening with interval improvement in pulmonary vascular congestion. Finalized by Eddy Hauser M.D. on 04/07/2018 8:31 AM. Dictated by Eddy Hauser M.D. on 04/07/2018 8:29 AM. Performing Organization Address City/[facility]/Zipcode Phone Number RAD RESULTS * IRON + BINDING CAPACITY + %SAT+ FERRITIN (04/06/2018 3:00 AM CDT) Iron 23 (L)Comment: SLT HEMOLYSIS 50 - 160 MCG/DL [facility]IN [facility] Iron Binding-TIBC 273 270 - 380 MCG/DL [facility] MAIN [facility] % Saturation 8 (L) 28 - 42 % [facility] Ferritin 259 (H) 10 - 200 NG/ML [facility] MAIN LAB Performing Organization Address [facility] Phone Number [facility] MAIN LAB [address] [place] [address] * FOLATE, SERUM (04/06/2018 3:00 AM CDT) Serum Folate >23.4 >3.9 NG/ML [facility] MAIN LAB Comment: SLT HEMOLYSIS NOTE NEW REFERENCE RANGES Performing Organization Address [facility] Phone Number MAIN LAB [address] [place] [address] * VITAMIN B12 (04/06/2018 3:00 AM CDT) Vitamin B12 1,234 (H) 180 - 914 PG/ML [facility] MAIN [facility] Performing Organization Address [facility] Phone Number [facility] MAIN LAB [address] [place] [address] * HEMOGLOBIN & HEMATOCRIT (04/03/2018 8:11 PM CDT) Hemoglobin 8.1 (L) 12.0 - 15.0 GM/DL [facility] MAIN [facility] Hematocrit 24.1 (L) 36 - 45 % [facility] MAIN [facility] Specimen Blood Performing Organization Address [facility] Phone Number [facility] MAIN [facility] [address] [place] [address] * CBC AND DIFF (04/01/2018 11:24 PM CDT) Only the most recent of 9 results within the time period is included. White Blood Cells 6.3 4.5 - 11.0 K/UL [facility] MAIN [facility] RBC 2.62 (L) 4.0 - 5.0 M/UL [facility] Hemoglobin 8.2 (L) 12.0 - 15.0 GM/DL [facility] Hematocrit 25.5 (L) 36 - 45 % [facility] MCV 97.4 80 - 100 FL [facility] MCH 31.3 26 - 34 PG [facility] MCHC 32.1 32.0 - 36.0 G/DL [facility] RDW 18.0 (H) 11 - 15 % [facility] Platelet Count 187 150 - 400 K/UL [facility] MPV 7.9 7 - 11 FL [facility] Neutrophils 72 41 - 77 % [facility] Lymphocytes 9 (L) 24 - 44 % [facility] Monocytes 13 (H) 4 - 12 % [facility] Eosinophils 6 (H) 0 - 5 % [facility] Basophils 0 0 - 2 % [facility] Absolute Neutrophil Count 4.50 1.8 - 7.0 K/UL [facility] Absolute Lymph Count 0.60 (L) 1.0 - 4.8 K/UL [facility] Absolute Monocyte Count 0.80 0 - 0.80 K/UL [facility] Absolute Eosinophil Count 0.40 0 - 0.45 K/UL [facility] Absolute Basophil Count 0.00 0 - 0.20 K/UL [facility] Specimen Blood Performing Organization Address City/State/Zipcode Phone Number MAIN LAB [address] [place] [address] * CT HEAD WO CONTRAST (04/01/2018 7:51 PM CDT) Only the most recent of 2 results within the time period is included. Impressions Performed At No acute intracranial hemorrhage or mass effect. [facility] RAD RESULTS By my electronic signature, I attest that I have personally reviewed the images for this examination and formulated the interpretations and opinions expressed in this report Finalized by Skinny Brody M.D. on 04/01/2018 10:00 PM. Dictated by Sky Martínez M.D. on 04/01/2018 9:49 PM. Narrative Performed At EXAM: CT HEAD [facility] RAD RESULTS HISTORY:Female, 62 years old. Altered mental status. Evaluate for intracranial hemorrhage prior to initiating anticoagulation. TECHNIQUE: Multiple contiguous axial images were obtained of the brain without intravenous contrast. COMPARISON: March 25, 2018 FINDINGS: Motion artifact slightly limits evaluation. The ventricles and subarachnoid spaces are normal in size and configuration. There is no midline shift or mass effect. The basal cisterns are patent. There is no evidence of acute intracranial hemorrhage or extra-axial fluid collection. The purdy white matter interfaces are maintained. The mastoid air cells and visualized paranasal sinuses are well-aerated. Procedure Note Interface, [facility]iant Results - 04/01/2018 10:03 PM CDT EXAM: CT HEAD HISTORY: Female, 62 years old. Altered mental status. Evaluate for intracranial hemorrhage prior to initiating anticoagulation. TECHNIQUE: Multiple contiguous axial images were obtained of the brain without intravenous contrast. COMPARISON: March 25, 2018 FINDINGS: Motion artifact slightly limits evaluation. The ventricles and subarachnoid spaces are normal in size and configuration. There is no midline shift or mass effect. The basal cisterns are patent. There is no evidence of acute intracranial hemorrhage or extra-axial fluid collection. The purdy white matter interfaces are maintained. The mastoid air cells and visualized paranasal sinuses are well-aerated. IMPRESSION No acute intracranial hemorrhage or mass effect. By my electronic signature, I attest that I have personally reviewed the images for this examination and formulated the interpretations and opinions expressed in this report Finalized by Skinny Brody M.D. on 04/01/2018 10:00 PM. Dictated by Sky Martínez M.D. on 04/01/2018 9:49 PM. Performing Organization Address City/[facility] Phone Number RAD RESULTS * BLOOD GASES, PERIPHERAL VENOUS (04/01/2018 11:55 AM CDT) pH-Venous 7.24 (L) 7.30 - 7.40 MAIN LAB PCO2-Venous 65 (H) 36 - 50 MM[facility] MAIN LAB PO2-Venous 44 33 - 48 MM[facility] MAIN LAB Base Deficit-Venous 0.9 MMOL/L MAIN LAB O2 Sat-Venous 74.1 (H) 55 - 71 % MAIN LAB Qhovwsftnan-IKV-Fho 23.4 MMOL/L MAIN LAB Specimen Blood, venous - Blood Performing Organization Address City/[facility] Phone Number [facility] [address] [place] [address] * UA REFLEX CULTURE LABEL (04/01/2018 11:40 AM CDT) Only the most recent of 2 results within the time period is included. Reflex Culture LAB LABEL MAIN LAB Specimen Urine Performing Organization Address City/[facility] Phone Number [facility] [address] [place] [address] * URINALYSIS MICROSCOPIC REFLEX TO CULTURE (04/01/2018 11:40 AM CDT) Only the most recent of 2 results within the time period is included. WBCs,UA 0-2 0 - 2 /HPF [facility] RBCs,UA 0-2 0 - 3 /HPF [facility] Comment,UA Urine submitted for reflex [facility]IN [facility] culture if criteria are met:WBC>10, positive nitrite and/or >=1+ leukocyte esterase. If quantity is not sufficient, an addendum will follow. MucousUA TRACE [facility]IN [facility] Hyaline Cast 2-5 [facility] Amorphous Sedimate,UA FEW [facility] Specimen Urine Performing Organization Address [facility] Phone Number [facility] [address] [place] [phone] * URINALYSIS DIPSTICK REFLEX TO CULTURE (04/01/2018 11:40 AM CDT) Only the most recent of 2 results within the time period is included. Color,UA YELLOW [facility] Turbidity,UA 1+ (A) CLEAR-CLEAR [facility] Specific [place]-Urine 1.014 1.003 - 1.035 [facility] pH,UA 5.0 5.0 - 8.0 [facility] Protein,UA NEG NEG-NEG [facility] Glucose,UA NEG NEG-NEG [facility] Ketones,UA NEG NEG-NEG [facility] Bilirubin,UA NEG NEG-NEG [facility] Blood,UA NEG NEG-NEG [facility] Urobilinogen,UA NORMAL NORM-NORMAL [facility] Nitrite,UA NEG NEG-NEG [facility] Leukocytes,UA NEG NEG-NEG [facility] Urine Ascorbic Acid, UA NEG NEG-NEG [facility] Specimen Urine Performing Organization Address [facility] Phone Number [facility] [address] [place] [address] * UREA NITROGEN-URINE RANDOM (04/01/2018 11:40 AM CDT) Only the most recent of 3 results within the time period is included. Urea Nitrogen 294 MG/DL [facility]IN [facility] Specimen Urine - Urine Performing Organization Address [facility] Phone Number [facility] [address] [place] [address] * SODIUM-URINE RANDOM (04/01/2018 11:40 AM CDT) Only the most recent of 2 results within the time period is included. Sodium, Random 11 MMOL/L MAIN LAB Specimen Urine - Urine Performing Organization Address [facility] Phone Number MAIN LAB [address] [place] [address] * CREATININE-URINE RANDOM (04/01/2018 11:40 AM CDT) Only the most recent of 3 results within the time period is included. Creatinine, Random 209 MG/DL MAIN LAB Specimen Urine - Urine Performing Organization Address [facility] Phone Number MAIN LAB [address] [place] [address] * EOSINOPHIL STAIN (04/01/2018 11:40 AM CDT) Battery Name EOSINOPHIL STAIN MAIN LAB Specimen Description URINE MAIN LAB Special Requests NONE MAIN LAB Ahuja's Stain NO EOSINOPHILS SEEN MAIN LAB Report Status FINAL MAIN LAB 04/02/2018 Specimen Urine Performing Organization Address [facility] Phone Number [facility]IN [facility] [address] [place] [phone] * URIC ACID (04/01/2018 7:50 AM CDT) Uric Acid 13.7 (H) 2.0 - 7.0 MG/DL MAIN LAB Specimen Blood Performing Organization Address [facility] Phone Number MAIN LAB [address] [place] [address] * CREATINE KINASE-CPK (04/01/2018 7:50 AM CDT) Creatine Kinase 16 (L) 21 - 215 U/L MAIN LAB Specimen Blood Performing Organization Address [facility] Phone Number MAIN LAB [address] [place] [address] * BLOOD GASES, ARTERIAL (03/31/2018 11:57 PM CDT) Only the most recent of 2 results within the time period is included. pH-Arterial 7.27 (L) 7.35 - 7.45 MAIN LAB pCO2-Arterial 59 (H) 35 - 45 MMHG MAIN LAB pO2-Arterial 76 (L) 80 - 100 MM[facility] MAIN LAB Base Deficit-Arterial 0.8 MMOL/L [facility] O2 Sat-Arterial 95.0 95 - 99 % [facility] MAIN LAB Isbeykexipa-MSD-Vvk 23.7 21 - 28 MMOL/L [facility] MAIN [facility] Specimen Blood, arterial - Blood Performing Organization Address City/[facility]/Zipcode Phone Number [facility] MAIN [facility] [address] [place] [address] * CULTURE-BLOOD W/SENSITIVITY (03/31/2018 9:58 PM CDT) Only the most recent of 4 results within the time period is included. Battery Name BLOOD CULTURE [facility] MAIN [facility] Specimen Description BLOOD [facility]IN [facility] LEFT ANTECUBITAL Special Requests NONE [facility] MAIN [facility] Culture NO GROWTH 5 DAYS [facility] MAIN [facility] Report Status FINAL [facility]IN [facility] 04/06/2018 Specimen Blood Performing Organization Address City/[facility]/Zipcode Phone Number MAIN LAB [address] [place] [address] * LACTIC ACID (BG - RAPID LACTATE) (03/31/2018 9:50 PM CDT) Only the most recent of 2 results within the time period is included. Lactic Acid,BG 1.3 0.5 - 2.0 MMOL/L MAIN LAB Specimen Blood Performing Organization Address City/[facility]/Zipcode Phone Number [facility]IN [facility] [address] [place] [address] * COMPREHENSIVE METABOLIC PANEL (03/31/2018 3:35 PM CDT) Only the most recent of 8 results within the time period is included. Sodium 131 (L) 137 - 147 MMOL/L [facility] MAIN [facility] Potassium 4.4 3.5 - 5.1 MMOL/L [facility]IN [facility] Chloride 99 98 - 110 MMOL/L [facility] MAIN [facility] Glucose 142 (H) 70 - 100 MG/DL [facility] MAIN [facility] Blood Urea Nitrogen 48 (H) 7 - 25 MG/DL [facility]IN [facility] Creatinine 3.10 (H) 0.4 - 1.00 MG/DL [facility] MAIN [facility] Calcium 9.6 8.5 - 10.6 MG/DL [facility] MAIN [facility] Total Protein 7.6 6.0 - 8.0 G/DL [facility] MAIN [facility] Total Bilirubin 0.7 0.3 - 1.2 MG/DL [facility] MAIN [facility] Albumin 3.5 3.5 - 5.0 G/DL [facility] MAIN [facility] Alk Phosphatase 60 25 - 110 U/L [facility] MAIN [facility] AST (SGOT) 14 7 - 40 U/L [facility] MAIN [facility] CO2 24 21 - 30 MMOL/L [facility] MAIN [facility] ALT (SGPT) 6 (L) 7 - 56 U/L [facility] MAIN [facility] Anion Gap 8 3 - 12 [facility] MAIN [facility] eGFR Non 15 (L) >60 mL/min [facility]IN [facility] Comment: The eGFR is not validated for use in drug dosing adjustments.Continue to use estimated creatinine clearance per dosing reference text.Please contact the Clinical Pharmacist for questions. eGFR 19 (L) >60 mL/min [facility] MAIN [facility] Comment: The eGFR is not validated for use in drug dosing adjustments.Continue to use estimated creatinine clearance per dosing reference text.Please contact the Clinical Pharmacist for questions. Specimen Blood Performing Organization Address City/State/Zipcode Phone Number MAIN LAB [address] [place] [address] * 2-D + DOPPLER ECHOCARDIOGRAM (03/31/2018 11:57 AM CDT) IVS 1.08 0.6 - 0.9 cm OTHER OUTSIDE LAB LVIDD 4.82 3.8 - 5.2 cm OTHER OUTSIDE LAB LVIDS 3.33 2.2 - 3.5 cm OTHER OUTSIDE LAB PW 1.13 0.6 - 0.9 cm OTHER OUTSIDE LAB TDI e' 0.11 m/s OTHER OUTSIDE LAB LA size 5.58 2.7 - 3.8 cm OTHER OUTSIDE LAB LA volume 66.73 22 - 52 mL OTHER OUTSIDE LAB and a peak gradient of 11.13 mmHg OTHER OUTSIDE LAB AV peak velocity 1.67 m/s OTHER OUTSIDE LAB MV Peak A Kenrick 0.34 m/s OTHER OUTSIDE LAB MV Peak E Kenrick PW 1.16 m/s OTHER OUTSIDE LAB Sinus 3.26 2.7 - 3.3 cm OTHER OUTSIDE LAB BSA 2.26 m2 OTHER OUTSIDE LAB FS 30.91 28 - 44 % OTHER OUTSIDE LAB EF 52.55 % OTHER OUTSIDE LAB Left Atrium Index 29.53 16 - 34 OTHER OUTSIDE LAB E/A ratio 3.41 OTHER OUTSIDE LAB E/E' ratio 10.55 OTHER OUTSIDE LAB Referring Provider Carla Wilson OTHER OUTSIDE LAB LV mass 196.49 66 - 150 g OTHER OUTSIDE LAB RWT 0.47 <=0.42 OTHER OUTSIDE LAB Cardiology Ultrasound Siemens [id number] OTHER OUTSIDE LAB Machine Left Ventricle Mass Index 86.94 44 - 88 g/m2 OTHER OUTSIDE LAB CV ECHO PV WOOD BORER Marissa RDCS OTHER OUTSIDE LAB TV rest pulmonary artery 45 mmHg OTHER OUTSIDE LAB pressure ECHO EF 65 % OTHER OUTSIDE LAB Narrative Performed At OTHER OUTSIDE LAB Technically limited study. Normal sized LV with normal systolic function. Estimated LVEF of 65%. No regional wall abnormalities identified on the echo contrast images. Right heart not well visualized. RV size appears grossly normal. Cannot assess RV function with this study. Marked elevated CVP. Estimated PASP of 45 mmHg. Tricuspid and pulmonary valves not well seen. No hemodynamically significant valve abnormalities. No pericardial effusion. Compared to ECHO dated 02/13/2018, LV function continues to be preserved. Elevated pulmonary artery pressure. Performing Organization Address City/State/[facility] Phone Number OTHER OUTSIDE LAB * US RENAL BLADDER LTD (03/30/2018 4:21 PM CDT) Impressions Performed At Unremarkable renal ultrasound. [facility] RAD RESULTS Finalized by Edda Harden M.D. on 03/30/2018 4:25 PM. Dictated by Edda Harden M.D. on 03/30/2018 4:22 PM. Narrative Performed At Ultrasound of the kidneys and bladder [facility] RAD RESULTS Clinical Indication: Worsening kidney function. Technique: Multiple real-time grayscale sonographic images were obtained through the kidneys and bladder. Comparison is to February 14, 2018. Findings: Evaluation is limited by patient body habitus and overlying bowel gas. The right kidney measures 11.6 cm in length.The left kidney measures 13.3 cm in length.No hydronephrosis is identified. The bladder is decompressed. Procedure Note Interface, Radiant Results - 03/30/2018 4:28 PM CDT Ultrasound of the kidneys and bladder Clinical Indication: Worsening kidney function. Technique: Multiple real-time grayscale sonographic images were obtained through the kidneys and bladder. Comparison is to February 14, 2018. Findings: Evaluation is limited by patient body habitus and overlying bowel gas. The right kidney measures 11.6 cm in length. The left kidney measures 13.3 cm in length. No hydronephrosis is identified. The bladder is decompressed. IMPRESSION Unremarkable renal ultrasound. Finalized by Edda Harden M.D. on 03/30/2018 4:25 PM. Dictated by Edda Harden M.D. on 03/30/2018 4:22 PM. Performing Organization Address City/[facility] Phone Number [facility] RAD RESULTS * OSMOLALITY-URINE RANDOM (03/30/2018 12:31 PM CDT) Only the most recent of 2 results within the time period is included. Osmolality-Urine 364 50 - 1,400 MOS/KG MAIN LAB Specimen Urine - Urine Performing Organization Address City/State/Zipcode Phone Number [facility] MAIN LAB [address] [place] [address] * TELEMETRY STRIPS-SCAN (03/30/2018 11:43 AM CDT) Narrative Performed At Ordered by an unspecified provider. * EGD REPORT (03/29/2018 7:42 AM CDT) Provation Report Patient Name: Donnie CASTILLO OTHER RESULTS Procedure Date: 03/29/2018 7:42 AM CSN: [id number] Date of : 1955 Gender: Female Attending Physician: Dannielle Covington MD Procedure: Upper GI endoscopy Indications: Iron deficiency anemia Providers: Dannielle Covington MD (Doctor), Conner Martines MD (Fellow), Myla Meza RN (Nurse), Lynette Aguero, Reporting Consultant (Reporting Consultant) Referring Physician: Dominic Fuller MD, Carla Puente Medications: Monitored Anesthesia Care Complications: No immediate complications. Procedure: Pre-Anesthesia Assessment: - Prior to the procedure, a History and Physical was performed, and patient medications and allergies were reviewed. The patient's tolerance of previous anesthesia was also reviewed. The risks and benefits of the procedure and the sedation options and risks were discussed with the patient. All questions were answered, and informed consent was obtained. Prior Anticoagulants: The patient has taken no previous anticoagulant or antiplatelet agents. ASA Grade Assessment: IV - A patient with severe systemic disease that is a constant threat to life. After reviewing the risks and benefits, the patient was deemed in satisfactory condition to undergo the procedure. After obtaining informed consent, the endoscope was passed under direct vision. Throughout the procedure, the patient's blood pressure, pulse, and oxygen saturations were monitored continuously. The Endoscope [id number] was introduced through the mouth, and advanced to the second part of duodenum. The upper GI endoscopy was accomplished without difficulty. Findings: Small (< 5 mm) varices were found in the lower third of the esophagus. 3 columns of esophageal vrices Mild portal hypertensive gastropathy was found in the entire examined stomach. Not treated as it was found without bleeding. Mild gastric antral vascular ectasia without bleeding was present in the gastric antrum. 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 There were esophageal mucosal changes suspicious for long-segment Long's esophagus present in the lower third of the esophagus. The maximum longitudinal extent of these mucosal changes was 5 cm in length. GEJ was located at 40 cm. One tongue of salmon colored mucosa extended to 35 cm (C0M5). No biopsies were taken, due to esophageal varices. The duodenal bulb, first portion of the duodenum and second portion of the duodenum were normal. Impression: - [place]-colored mucosa suspicious for Long's esophagus. Biopsy is contraindicated due to bleeding and varices. - Small (< 5 mm) esophageal varices. - Portal hypertensive gastropathy. - Gastric antral vascular ectasia without bleeding. - No specimens collected. Estimated Blood Loss: Estimated blood loss: none. Recommendation: - Patient has a contact number available for emergencies. The signs and symptoms of potential delayed complications were discussed with the patient. Return to normal activities tomorrow. Written discharge instructions were provided to the patient. - Resume previous diet. - Continue present medications. - Recommend an iron supplementation. Monitor H/H. - discussed her endoscopic findings with Dr. Maier (pantograph machine set up operator). 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 Please consult hepatology team for further management. Scope In: 11:08:40 AM Scope Out: 11:17:33 AM Total Procedure Duration Time 0 hours 8 minutes 53 seconds Procedure Code(s): --- Professional --- 89215, Esophagogastroduodenoscopy, flexible, transoral; diagnostic, including collection of specimen(s) by brushing or washing, when performed (separate procedure) Diagnosis Code(s): --- Professional --- K22.8, Other specified diseases of esophagus I85.00, Esophageal varices without bleeding K76.6, Portal hypertension K31.89, Other diseases of stomach and duodenum K31.819, Angiodysplasia of stomach and duodenum without bleeding D50.9, Iron deficiency anemia, unspecified CPT copyright 2016 [employer]. All rights reserved. The codes documented in this report are preliminary and upon electromechanical inspector review may be revised to meet current compliance requirements. Attending Participation: I was present and participated during the entire procedure, including non-dempsey portions. MD Dannielle Velázquez MD 03/29/2018 12:03:01 PM The attending physician has electronically signed and finalized this document. Conner Martines MD Number of Addenda: 0 Note Initiated On: 03/29/2018 7:42 AM Performing Organization Address [facility] Phone Number [facility] OTHER RESULTS * ECG-SCAN (03/27/2018 11:10 AM CDT) Narrative Performed At Ordered by an unspecified provider. * ECG-SCAN (03/27/2018 11:05 AM CDT) Narrative Performed At Ordered by an unspecified provider. * URINALYSIS, MICROSCOPIC (03/27/2018 2:59 AM CDT) WBCs,UA 0-2 0 - 2 /HPF [facility] RBCs,UA 0-2 0 - 3 /HPF [facility] MucousUA TRACE [facility] Squamous Epithelial Cells 5-10 0 - 5 [facility] Hyaline Cast PACKED [facility] Specimen Urine - Urine Performing Organization Address [facility] Phone Number MAIN LAB [address] [place] [address] * URINALYSIS DIPSTICK (03/27/2018 2:59 AM CDT) Color,UA YELLOW [facility] Turbidity,UA CLEAR CLEAR-CLEAR [facility] Specific [place]-Urine 1.015 1.003 - 1.035 [facility] pH,UA 5.0 5.0 - 8.0 [facility] Protein,UA NEG NEG-NEG [facility] Glucose,UA NEG NEG-NEG [facility] Ketones,UA NEG NEG-NEG [facility] Bilirubin,UA NEG NEG-NEG [facility] Blood,UA NEG NEG-NEG [facility] Urobilinogen,UA NORMAL NORM-NORMAL [facility] Nitrite,UA NEG NEG-NEG [facility] Leukocytes,UA NEG NEG-NEG [facility] Urine Ascorbic Acid, UA NEG NEG-NEG [facility] Specimen Urine - Urine Performing Organization Address City/State/Zipcode Phone Number [facility] [address] [place] [address] * TRANSFUSE RBC'S NON-BLEEDING PT (03/26/2018 10:53 PM CDT) Only the most recent of 2 results within the time period is included. * CHEST X-RAY INSPIRATION/EXPIRATION (03/26/2018 1:41 PM CDT) Impressions Performed At Persistent moderate cardiomegaly with findings of CHF, left basilar [facility] RES[facility] consolidation and small left pleural effusion. Finalized by Pancho Green M.D. on 03/26/2018 2:02 PM. Dictated by Pancho Green M.D. on 03/26/2018 2:00 PM. Narrative Performed At Single view of the chest [facility] RESULTS Clinical history: Pleural drain placement. Pleural effusion. Findings: Comparison chest film: 1 hour earlier. Sternotomy wires and mediastinal clips are again noted. Left pleural drain remains in place. There is persistent moderate cardiomegaly and mild pulmonary vascular congestion. Left basilar consolidation and small left pleural effusion persists. No pneumothorax. Procedure Note Interface, Radiant Results - 03/26/2018 2:06 PM CDT Single view of the chest Clinical history: Pleural drain placement. Pleural effusion. Findings: Comparison chest film: 1 hour earlier. Sternotomy wires and mediastinal clips are again noted. Left pleural drain remains in place. There is persistent moderate cardiomegaly and mild pulmonary vascular congestion. Left basilar consolidation and small left pleural effusion persists. No pneumothorax. IMPRESSION Persistent moderate cardiomegaly with findings of CHF, left basilar consolidation and small left pleural effusion. Finalized by Pancho Green M.D. on 03/26/2018 2:02 PM. Dictated by Pancho Green M.D. on 03/26/2018 2:00 PM. Performing Organization Address City/State/Zipcode Phone Number [facility] RAD RESULTS * CHEST IMMEDIATE POST PROCEDURE INSP/EXP (03/26/2018 12:40 PM CDT) Impressions Performed At Placement of a left pleural pigtail drainage catheter with decrease in size of [facility] RESULTS now small left pleural effusion. Approved by Skinny Lindsey M.D. on 03/27/2018 8:41 AM By my electronic signature, I attest that I have personally reviewed the images for this examination and formulated the interpretations and opinions expressed in this report Finalized by Jett Cr M.D. on 03/27/2018 9:18 AM. Dictated by Skinny Lindsey M.D. on 03/27/2018 7:06 AM. Narrative Performed At Procedure: CHEST IMMEDIATE POST PROCEDURE INSP/EXP [facility] RESULTS Clinical Indication:Status post left chest tube placement Comparison:Chest radiograph one day prior. Findings: Prior median sternotomy and CABG. Placement of a left pleural pigtail drainage catheter with decrease in size of now small left pleural effusion. Mild cardiomegaly. No pneumothorax. Persistent bibasilar atelectasis. Procedure Note Interface, Radiant Results - 03/27/2018 9:21 AM CDT Procedure: CHEST IMMEDIATE POST PROCEDURE INSP/EXP Clinical Indication: Status post left chest tube placement Comparison: Chest radiograph one day prior. Findings: Prior median sternotomy and CABG. Placement of a left pleural pigtail drainage catheter with decrease in size of now small left pleural effusion. Mild cardiomegaly. No pneumothorax. Persistent bibasilar atelectasis. IMPRESSION Placement of a left pleural pigtail drainage catheter with decrease in size of now small left pleural effusion. Approved by Skinny Lindsey M.D. on 03/27/2018 8:41 AM By my electronic signature, I attest that I have personally reviewed the images for this examination and formulated the interpretations and opinions expressed in this report Finalized by Jett Cr M.D. on 03/27/2018 9:18 AM. Dictated by Skinny Lindsey M.D. on 03/27/2018 7:06 AM. Performing Organization Address City/State/Zipcode Phone Number [facility] RAD RESULTS * IR ASPIRATION/DRAIN (03/26/2018 12:21 PM CDT) Impressions Performed At IMPRESSION:Successful ultrasound-guided placement of a left pleural drainage [facility] RESULTS catheter. PLAN:Drainage catheter to Pleurovac. I was personally responsible for the administration of moderate sedation services during the procedure performed and I confirm requirements described in CPT section on moderate sedation were followed, including the use of an independent trained observer who had no other duties during the procedure.See nursing log for complete details; the drugs utilized were:Fentanyl and Versed Chauncey Blank M.D, the attending radiologist, was present for the critical and dempsey portions of the procedure with a midlevel, resident, and/or fellow participating.Overlapping portions were non dempsey and I was immediately available.I interpret the critical and dempsey portion of this procedure to have been catheter placement. @TT Approved by Ty Urrutia M.D. on 03/26/2018 2:16 PM By my electronic signature, I attest that I have personally reviewed the images for this examination and formulated the interpretations and opinions expressed in this report Finalized by CHAUNCEY STAPLES on 03/26/2018 4:41 PM. Dictated by Ty Urrutia M.D. on 03/26/2018 2:14 PM. Narrative Performed At ULTRASOUND GUIDED left SIDED CHEST DRAINAGE TUBE PLACEMENT: [facility] RESULTS CLINICAL INDICATION:Left Pleural Effusion. MEDICATIONS: Versed 4 mg IV, fentanyl 100 mcg IV. COMPLICATIONS: None immediate. TECHNIQUE: The left posterior hemithorax was prepped and draped in the usual sterile fashion. Under ultrasound guidance, the soft tissues in the appropriate rib interspace was anesthetized using lidocaine. Under ultrasound guidance, an 18-gauge micropuncture needle was used to access the pleural fluid collection. A 0.035" Amplatz wire was advanced through the needle under ultrasound guidance. The needle was removed, and an 8 Dutch pigtail all purpose drainage catheter was advanced over the wire.The catheter was placed to a Pleurovac drainage system. The catheter was secured with 2-0 Ethilon suture and an occlusive, sterile dressing applied. The patient tolerated the procedure well. FINDINGS: Moderate volume hypoechoic pleural fluid on ultrasound. Small bore chest tube appropriately positioned within the pleural fluid collection for drainage. Procedure Note Interface, Radiant Results - 03/26/2018 4:44 PM CDT ULTRASOUND GUIDED left SIDED CHEST DRAINAGE TUBE PLACEMENT: CLINICAL INDICATION: Left Pleural Effusion. MEDICATIONS: Versed 4 mg IV, fentanyl 100 mcg IV. COMPLICATIONS: None immediate. TECHNIQUE: The left posterior hemithorax was prepped and draped in the usual sterile fashion. Under ultrasound guidance, the soft tissues in the appropriate rib interspace was anesthetized using lidocaine. Under ultrasound guidance, an 18-gauge micropuncture needle was used to access the pleural fluid collection. A 0.035" Amplatz wire was advanced through the needle under ultrasound guidance. The needle was removed, and an 8 Dutch pigtail all purpose drainage catheter was advanced over the wire. The catheter was placed to a Pleurovac drainage system. The catheter was secured with 2-0 Ethilon suture and an occlusive, sterile dressing applied. The patient tolerated the procedure well. FINDINGS: Moderate volume hypoechoic pleural fluid on ultrasound. Small bore chest tube appropriately positioned within the pleural fluid collection for drainage. IMPRESSION IMPRESSION: Successful ultrasound-guided placement of a left pleural drainage catheter. PLAN: Drainage catheter to Pleurovac. I was personally responsible for the administration of moderate sedation services during the procedure performed and I confirm requirements described in CPT section on moderate sedation were followed, including the use of an independent trained observer who had no other duties during the procedure. See nursing log for complete details; the drugs utilized were: Fentanyl and Versed I, Chauncey Staples M.D, the attending radiologist, was present for the critical and dempsey portions of the procedure with a midlevel, resident, and/or fellow participating. Overlapping portions were non dempsey and I was immediately available. I interpret the critical and dempsey portion of this procedure to have been catheter placement. @TT Approved by Ty Urrutia M.D. on 03/26/2018 2:16 PM By my electronic signature, I attest that I have personally reviewed the images for this examination and formulated the interpretations and opinions expressed in this report Finalized by CHAUNCEY STAPLES on 03/26/2018 4:41 PM. Dictated by Ty Urrutia M.D. on 03/26/2018 2:14 PM. Performing Organization Address City/[facility]/Zipcode Phone Number [facility] RESULTS * TROPONIN-I (03/26/2018 2:02 AM CDT) Only the most recent of 2 results within the time period is included. Troponin-I 0.01 0.0 - 0.05 NG/ML MAIN LAB Specimen Blood Performing Organization Address City/[facility]/Zipcode Phone Number MAIN LAB [address] [place] [address] * TYPE & CROSSMATCH (03/25/2018 8:53 PM CDT) Units Ordered 1 MAIN LAB Crossmatch Expires 03/28/2018 MAIN LAB Record Check FOUND MAIN LAB ABO/RH(D) A POS [facility] MAIN LAB Antibody Screen NEG [facility] MAIN LAB Patient has a history of a clinically significant antibody. Unit Number [id number] [facility] MAIN LAB Blood Component Type RBC,ADSOL,LEUKO REDUCED MAIN LAB Unit Division 0 MAIN LAB Status OF Unit TRANSFUSED MAIN LAB Transfusion Status OK TO TRANSFUSE MAIN LAB Crossmatch Result COMPATIBLE, GEL [facility]IN [facility] Specimen Blood Performing Organization Address City/[facility]/Zipcode Phone Number MAIN LAB [address] [place] [address] * PHOSPHORUS (03/25/2018 8:53 PM CDT) Only the most recent of 2 results within the time period is included. Phosphorus 3.3Comment: NOTE NEW REFERENCE 2.0 - 4.5 MG/DL [facility] MAIN LAB RANGES Specimen Blood Performing Organization Address [facility]/Zipcode Phone Number MAIN LAB [address] [place] [address] * US DOPPLER VENOUS W EXTRM LEFT (03/25/2018 6:17 PM CDT) Impressions Performed At 1.No evidence of acute femoral/popliteal DVT in the left lower extremity. [facility] RES[facility] 2.Mild calf subcutaneous edema. By my electronic signature, I attest that I have personally reviewed the images for this examination and formulated the interpretations and opinions expressed in this report Finalized by Terrence Hobbs M.D. on 03/25/2018 8:58 PM. Dictated by Chapincito Mares M.D. on 03/25/2018 8:54 PM. Narrative Performed At Ultrasound Doppler of the left lower extremity. [facility] RAD RESULTS Clinical Indication: Shortness breath, evaluate for DVT Technique: Multiple real-time grayscale sonographic images were obtained throughout the left lower extremity with additional color Doppler and duplex acquisitions to examine the deep venous systems. Findings: The common femoral, femoral, upper deep femoral, upper saphenous, and popliteal veins of the left lower extremity are widely patent and fully compressible with normal color Doppler imaging. The visualized deep calf veins are patent. There is no evidence of mass or fluid collection. Mild subcutaneous calf edema. Procedure Note Interface, Radiant Results - 03/25/2018 9:01 PM CDT Ultrasound Doppler of the left lower extremity. Clinical Indication: Shortness breath, evaluate for DVT Technique: Multiple real-time grayscale sonographic images were obtained throughout the left lower extremity with additional color Doppler and duplex acquisitions to examine the deep venous systems. Findings: The common femoral, femoral, upper deep femoral, upper saphenous, and popliteal veins of the left lower extremity are widely patent and fully compressible with normal color Doppler imaging. The visualized deep calf veins are patent. There is no evidence of mass or fluid collection. Mild subcutaneous calf edema. IMPRESSION 1. No evidence of acute femoral/popliteal DVT in the left lower extremity. 2. Mild calf subcutaneous edema. By my electronic signature, I attest that I have personally reviewed the images for this examination and formulated the interpretations and opinions expressed in this report Finalized by Terrence Hobbs M.D. on 03/25/2018 8:58 PM. Dictated by Chapincito Mares M.D. on 03/25/2018 8:54 PM. Performing Organization Address City/[facility]/Zipcode Phone Number RAD RESULTS * BNP POC ER (03/25/2018 4:16 PM CDT) BNP POC 327.0 (H) 0 - 100 PG/ML MAIN LAB Performing Organization Address [facility] Phone Number MAIN LAB [address] [place] [address] * POC TROPONIN (03/25/2018 4:09 PM CDT) Clducxcw-N-VSH 0.00 0.00 - 0.05 NG/ML MAIN LAB Performing Organization Address [facility] Phone Number MAIN LAB [address] [place] [address] * ECG-SCAN (03/25/2018 2:30 PM CDT) Narrative Performed At Ordered by an unspecified provider. * TELEMETRY STRIPS-SCAN (03/12/2018 11:58 AM CDT) Narrative Performed At Ordered by an unspecified provider. * TELEMETRY STRIPS-SCAN (03/12/2018 9:39 AM CDT) Narrative Performed At Ordered by an unspecified provider. * ECG-SCAN (03/12/2018 9:38 AM CDT) Narrative Performed At Ordered by an unspecified provider. * ECG-SCAN (03/12/2018 9:35 AM CDT) Narrative Performed At Ordered by an unspecified provider. * ECG-SCAN (03/12/2018 9:28 AM CDT) Narrative Performed At Ordered by an unspecified provider. * ECG-SCAN (03/05/2018 10:13 AM CDT) Narrative Performed At Ordered by an unspecified provider. * ECG-SCAN (03/04/2018 3:16 PM CDT) Narrative Performed At Ordered by an unspecified provider. * ECG-SCAN (03/04/2018 3:15 PM CDT) Narrative Performed At Ordered by an unspecified provider. * ECG-SCAN (03/04/2018 3:15 PM CDT) Narrative Performed At Ordered by an unspecified provider. * ECG-SCAN (03/04/2018 3:15 PM CDT) Narrative Performed At Ordered by an unspecified provider. * PROCEDURE RECORD-SCAN (03/01/2018 12:03 PM CDT) Narrative Performed At Ordered by an unspecified provider. from Last 3 Months Insurance Payer Benefit Subscriber ID Type Phone Address [place] / [place] Advance Directives Patient has advance care planning documents, and code status on file. For more information, please contact: [facility] [address] [place] [address] Date Inactivated Comments Code Status Date Activated 04/09/2018 12:03 AM Full Code 03/25/2018 6:45 PM Provider has discussed Code Status Yes w/Patient or Family? 02/27/2018 7:27 PM Full Code 02/13/2018 3:21 AM Provider has discussed Code Status Yes w/Patient or Family? 02/13/2018 3:21 AM Full Code 02/12/2018 7:28 PM Provider has discussed Code Status No, more discussion w/Patient or Family? needed
--- OUTSIDE RECORDS SUMMARY | 2018-05-30 06:43 | XMS REPORT | Encounter Summary ---
Author Author [facility] Organization [facility] Address Unknown Phone Unavailable Care Team Providers Care Camera Operator Name Role Phone Carla Wilson MD PCP Naima Field MD Unavailable Winnie Jorge MD Unavailable Reason for Visit * Reason Comments Results Chest X-ray Encounter Details Care Team Description Date Type Department Dannielle Covington MD [address] [place] [address] Results (Chest X-ray) 05/03/2018 Telephone [facility] - Internal Medicine [facility] [address] [place] [address] Social History Date Tobacco Use Types Packs/Day [...] cognitive impairment: Yes as of this encounter Miscellaneous Notes * Telephone Encounter - Fanny Pastrana RN - 05/04/2018 3:52 PM TIMBER SELECTOR Called pt. Informed her of Social work assistance and offered their contact info. Per pt, she has a director of social services locally and is currently helping her get medicare/medicaide. Will not be active until June. Pt declines [facility] social work at this time. Pt requested results on Chest X-ray. See below for results. Pt stated she called cardiology and inquired if she needs to increase torsemide. She has not heard back. Pt has urgent OV w/ Hepatology on 05/10. Pt has no other questions or concerns at this time. Will call GI office if other problems arise. ER SELECTOR * Telephone Encounter - Dannielle Covington MD - 05/04/2018 9:10 AM TIMBER SELECTOR Thanks She needs to see director of social services as well. ER SELECTOR * Telephone Encounter - Fanny Pastrana RN - 05/03/2018 2:32 PM TIMBER SELECTOR Was informed by Dr. Erazo to [facility] Urgent Referral for Hepatology due to anemia, fluid volume overload, esophageal varices, portal hypertension w/ chronic bleeding. On chart review, referral was marked as urgent. Called outpatient Hepatology scheduling number. Was informed they are aware it is an urgent referral and a nurse will triage it accordingly. As of now, there are 2 pts ahead of this pt. Routing to Dr. Covington/Dr. Erazo as FYI. ER SELECTOR * Telephone Encounter - Fanny Pastrana RN - 05/03/2018 1:23 PM TIMBER SELECTOR Pt called and inquired on Chest X-ray on 04/28/18. Results: Findings: Prior median sternotomy and CABG. Persistent enlargement of the cardiomediastinal silhouette with improving edema. Persistent left pleural effusion and bibasilar atelectasis. No pneumothorax. IMPRESSION Improving edema with a persistent left pleural effusion and bibasilar atelectasis. Attempted to call patient. Left voicemail to return call. Routing to Dr. Covington/Dr. Erazo to advise if anything further needs to be pursued. ER SELECTOR in this encounter Plan of Treatment Not on fileas of this encounter Visit Diagnoses Not on filein this encounter
--- OUTSIDE RECORDS SUMMARY | 2018-05-30 06:43 | XMS REPORT | Encounter Summary ---
Author Author [facility] Organization [facility] Address Unknown Phone Unavailable Care Team Providers Care Graphic Production Artist Name Role Phone Carla Wilson MD PCP Naima Field MD Unavailable Winnie Jorge MD Unavailable Encounter Details Care Team Description Date Type Department Lynette Diana MD [address] [place] [address] 05/04/2018 Documentation [facility] 1st FLOOR [address] [place] [address] Social History Date Tobacco Use Types Packs/Day [...] cognitive impairment: Yes as of this encounter Progress Notes * Edy Sheridan - 05/04/2018 4:08 PM STRAIGHTENING PRESS OPERATOR HELPER Requested labs from via maribel kahn IGHTENING PRESS OPERATOR HELPER in this encounter Plan of Treatment Not on fileas of this encounter Visit Diagnoses Not on filein this encounter
--- OUTSIDE RECORDS SUMMARY | 2018-05-30 06:43 | XMS REPORT | Encounter Summary ---
Author Author [facility] Organization [facility] Address Unknown Phone Unavailable Care Team Providers Care Instructional Coordinator Name Role Phone Carla Wilson MD PCP Naima Field MD Unavailable Winnie Jorge MD Unavailable Reason for Visit * Reason Comments Referral Encounter Details Care Team Description Date Type Department Unknown, Unknown, MD Referral 04/30/2018 Telephone [facility] 1st FLO[address] [place] [address] Social History Date Tobacco Use Types Packs/Day [...] encounter Miscellaneous Notes * Telephone Encounter - Melany Fuchs - 05/04/2018 3:32 PM PUBLIC HEALTH TEACHER Called patient to schedule new appointment with Dr. Diana on Thursday, May 10, 2018 at 2:00pm. Verified demos and mailed appointment letter/map. Pt stated they have current insurance. IC HEALTH TEACHER * Telephone Encounter - Lakeisha Jin RN - 05/03/2018 2:41 PM PUBLIC HEALTH TEACHER Service (OLT/Gen Hep/HPB): LTC Referring: Dr. Covington Urgency: semi-urgent Provider: next available Dx: cirrhosis, GAVE OV note: O2 Imaging/location: O2 Pathology/location: Labs: O2 Fatty liver, transfusion dependent anemia, DELROY, GI bleed with GAVE, Long's. BMI 43, DM, CAD, HTN. Recent DVT. IC HEALTH TEACHER * Telephone Encounter - Crys Hansen - 04/30/2018 11:41 AM PUBLIC HEALTH TEACHER Received new referral, via internal. Docs in O2. IC HEALTH TEACHER in this encounter Plan of Treatment Not on fileas of this encounter Visit Diagnoses Not on filein this encounter
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
--- OUTSIDE RECORDS SUMMARY | 2018-05-30 06:44 | XMS REPORT | Encounter Summary ---
Author Author [facility] Organization [facility] Address Unknown Phone Unavailable Care Team Providers Care Photolettering Machine Operator Name Role Phone Carla Wilson MD PCP Naima Field MD Unavailable Winnie Jorge MD Unavailable Reason for Referral * Consult, Test & Treat (Urgent) Referred By Contact Referred To Contact Status Reason Specialty Diagnoses / Procedures Dannielle Covington MD [address] [place] [address] [facility] Gen Hepatology [facility] [address] [place] [address] Authorized Specialty Services Hepatology Diagnoses Required Dyspnea, unspecified type Hepatic cirrhosis, unspecified hepatic cirrhosis type, unspecified whether ascites present (HCC) Esophageal varices without bleeding, unspecified esophageal varices type (HCC) GAVE (gastric antral vascular ectasia) Long's esophagus without dysplasia Anemia, unspecified type Scheduling Instructions Please call pt and schedule. Thanks! Reason for Visit * Reason Comments Post-hospital Follow Up Encounter Details Care Team Description Date Type Department Antolin Erazo Dyspnea, unspecified type (Primary Dx); Hepatic cirrhosis, unspecified hepatic cirrhosis type, unspecified whether ascites present (HCC); Esophageal varices without bleeding, unspecified esophageal varices type (HCC); GAVE (gastric antral vascular ectasia); Long's esophagus without dysplasia; Anemia, unspecified type 04/28/2018 Office Visit [facility] - [facility] [address] [place] [phone] Social History Date Tobacco Use Types Packs/Day [...] travel history available. as of this encounter Last Filed Vital Signs Time Taken Vital Sign Reading 04/28/2018 3:22 PM BLOCKERS SKIVER Blood Pressure 101/58 04/28/2018 3:22 PM BLOCKERS SKIVER Pulse 65 04/28/2018 3:22 PM BLOCKERS SKIVER Temperature 36.4 C (97.5 F) 04/28/2018 3:22 PM BLOCKERS SKIVER Respiratory Rate 16 - Oxygen Saturation - - Inhaled Oxygen - Concentration 04/28/2018 3:22 PM BLOCKERS SKIVER Weight 114.2 kg (251 lb 12.8 oz) 04/28/2018 3:22 PM BLOCKERS SKIVER Height 162.6 cm (5' 4") 04/28/2018 3:22 PM BLOCKERS SKIVER Body Mass Index 43.22 in this encounter Functional Status Date of Assessment [...] cognitive impairment: Yes as of this encounter Patient Instructions * Patient Instructions* Fanny Pastrana RN - 04/28/2018 3:30 PM BLOCKERS SKIVER Please call [facility]OMPS[address] Escob[address] Dr[address]s nurse at [phone] if you have any questions or concerns. General Instructions: To have a medication refilled: Please use the [employer] Refill request or contact your pharmacy directly to request medication refills. Please allow 72 hours. [facility] Lab is on the 1st floor. It is open from 7 am-6pm Thursday-Thursday and 6:30am-7pm on Mondays, and 7 am - Noon on Saturdays [facility] Lab is located on the 2nd floor and is open 8 am-5 pm Thursday-Thursday [facility] lab is located next to the check out desk and is open from 8 AM to 4:45 PM Thursday through Thursday. Radiology is on the 2nd floor of the Medical Office Building and the 2nd Floor of [facility]. Radiology Scheduling can be reached at To Schedule office visits: Call [phone]. For procedure scheduling questions at the Main [facility] or [place] please call ; for a procedure at [facility] please call [phone]. To receive appointment reminders on your cell phone: Make sure we have your cell phone number, and Text [facility] to [phone]. Support for many chronic illnesses is available through [place]: [employer] or [phone]. For urgent questions on nights, weekends or holidays, call the [place] [employer] Bleacher at [phone], and ask for the doctor production tech for Gastroenterology.Call [phone] for any emergencies. KERS SKIVER in this encounter Progress Notes * Antolin Erazo - 04/28/2018 3:30 PM BLOCKERS SKIVER Date of Service: 04/28/2018 Subjective: Deborah Fields is a 62 y.o. female. History of Present IllnessMs. Donnie, a 62-year-old female with a past medical history of coronary artery disease s/p CABG (02/2018), CKD, Afib not on AC, hx of iron deficiency anemia for which she has initially been seen in our office in October. At that point given her unstable cardiovascular state and the recent NSTEMI, evaluation of the VICKY (e.g. EGD/colonoscopy) were postponed to 3-6 months later. Since then she has had a very rough medical course, she has undergone CABG in February, was diagnosed with DVT in the R leg and superficial venous thrombosis in the R arm (per patient, not found in patient's chart, US doppler is negative) and Afib, while on heparin gtt bridged to coumadin, she has had significant episodes of bleeding while inpatient for which she has undergone EGD and colonoscopy in 03/2018. The EGD showed Long's esophagus, esophageal varices, portal hypertensive gastropathy, and the colonoscopy showed poor prp, but erythematous mucosa in the ascending colon and the cecum, suggestive of congestive colopathy. She was also found to have a 5 mm transverse polyp that was not resected. She had an erythematous flat lesion int he transverse colon and diverticulosis in the sigmoid con, non-bleeding external hemorrhoids. Post CABG she also recalls an instant of becoming progressively short of breath , had a CXR done and was found to have a L pleural effusion which was drained with a chest tube, a total of 1200 cc. No diagnosis of cirrhosis was made while in the hospital, she was discharged off of any anticoagulation. Since then she has received weekly CBC checks which showed a 2.5 g Hgb drop over the past two weeks and she is scheduled to receive two units of blood. It is, however, complicated by the fact that she has started to develop antibodies due to the amount of transfusions that she has had. She also reports burning epigastric pain, non-radiating, 7/10, not significantly alleviated by her PPI. She also reports fluid retention in her legs and even sometimes in her face when she wakes up in the morning. Going back through her chart her LFTs are WNL, INR off of anticoagulation is 1.6. Plts currently are at 132 K, Hgb yesterday was 7.1 g/dL. I do not have an albumin level. She denies any drinking or smoking history, no recreational drugs. 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 Review of Systems Constitutional: Positive for activity change, appetite change, chills and fatigue. HENT: Positive for facial swelling and sneezing. Eyes: Positive for itching. Respiratory: Positive for apnea and shortness of breath. Cardiovascular: Positive for chest pain, palpitations and leg swelling. Gastrointestinal: Positive for abdominal distention, abdominal pain, anal bleeding, blood in stool, constipation, nausea and vomiting. Endocrine: Positive for cold intolerance. Musculoskeletal: Positive for gait problem. Skin: Positive for rash. Allergic/Immunologic: Positive for environmental allergies. Neurological: Positive for dizziness, tremors, weakness, light-headedness, numbness and headaches. Hematological: Bruises/bleeds easily. Psychiatric/Behavioral: Positive for sleep disturbance. The patient is nervous/ anxious. All other systems reviewed and are negative. Objective: acetaminophen (TYLENOL) 325 mg tablet Take two tablets by mouth every 6 hours as needed. aspirin 81 mg chewable tablet Chew one tablet by mouth daily with food. cetirizine (ZYRTEC) 10 mg tablet Take 10 mg by mouth every morning. clobetasol (TEMOVATE) 0.05 % topical cream Apply to affected area twice daily as needed diltiazem CD (CARDIZEM CD) 180 mg capsule Take one capsule by mouth daily. diphenhydrAMINE (BENADRYL ALLERGY) 25 mg tablet Take 25 mg by mouth at bedtime as needed. folic acid (FOLVITE) 1 mg tablet Take 1 mg by mouth daily. GLUCOSAMINE HCL/CHONDROITIN CALDERON (GLUCOSAMINE-CHONDROITIN PO) Take 1 tablet by mouth twice daily. insulin aspart U-100 (NOVOLOG) 100 unit/mL injection Inject four Units under the skin three times daily with meals. insulin NPH (HUMULIN N NPH U-100 INSULIN) 100 unit/mL injection Inject fourteen Units under the skin every morning. Insulin Syringe-Needle U-100 (BD INSULIN SYRINGE ULTRA-FINE) 0.3 mL 31 gauge x 5/16 syrg Use four times daily with Insulin levothyroxine (SYNTHROID) 175 mcg tablet Take 175 mcg by mouth daily 30 minutes before breakfast. magnesium oxide (MAG-OX) 400 mg (241.3 mg magnesium) tablet Take one tablet by mouth twice daily. metoprolol tartrate (LOPRESSOR) 100 mg tablet Take 100 mg by mouth twice [...] hours as needed for Nausea or Vomiting. potassium chloride SR (K-DUR) 20 mEq tablet Take one tablet by mouth daily. Take with a meal and a full glass of water. pramoxine/zinc oxide (TRONOLANE) 1% / 5% topical cream Insert or Apply to rectal area as directed daily as needed (For Hemorrhoids). senna/docusate (SENOKOT-S) 8.6/50 mg tablet Take two tablets by mouth twice daily. (Patient taking differently: Take 2 tablets by mouth at bedtime daily.) tiZANidine (ZANAFLEX) 4 mg tablet Take 4 mg by mouth every 6 hours as needed. torsemide(+) (DEMADEX) 20 mg tablet Take two tablets by mouth daily. traMADol (ULTRAM) 50 mg tablet Take one tablet by mouth every 6 hours as needed for Pain. Vitals: 04/28/18 1522 BP: 101/58 Pulse: 65 Resp: 16 Temp: 36.4 C (97.5 F) TempSrc: Oral Weight: 114.2 kg (251 lb 12.8 oz) Height: 162.6 cm (64") Body mass index is 43.22 kg/m. Physical Exam Constitutional: She is oriented to person, place, and time. She appears well- developed and well-nourished. No distress. HENT: Head: Normocephalic. Mouth/Throat: Oropharynx is clear and moist. Eyes: Pupils are equal, round, and reactive to light. Conjunctivae and EOM are normal. No scleral icterus. Neck: Normal range of motion. Cardiovascular: Normal rate, regular rhythm and normal heart sounds. Exam reveals no gallop and no friction rub. No murmur heard. 2+ b/l MARIO Pulmonary/Chest: Effort normal. No respiratory distress. She has no wheezes. She has no rales. Decreased breath sound in the R LL. No crackles. Sternal scar from recent CABG Abdominal: Soft. Bowel sounds are normal. She exhibits distension. She exhibits no mass. There is tenderness. There is no rebound and no guarding. Musculoskeletal: Normal range of motion. She exhibits no edema or tenderness. Lymphadenopathy: She has no cervical adenopathy. Neurological: She is alert and oriented to person, place, and time. No cranial nerve deficit. Skin: Skin is warm and dry. She is not diaphoretic. No erythema. teleangiectasias Psychiatric: She has a normal mood and affect. Assessment and Plan: Ms. Fields, a 62-year-old female with a past medical history of coronary artery disease s/p CABG (02/2018), CKD, Afib not on AC, hx of iron deficiency anemia for which she has initially been seen in our office in October. At that point given her unstable cardiovascular state and the recent NSTEMI, evaluation of the VICKY (e.g. EGD/colonoscopy) were postponed to 3-6 months later. # anemia # hematochezia # cirrhosis, new diagnosis # EGD: esophageal varices, Long's, portal hypertensive gastropathy # colonoscopy: congestive colopathy, 5mm transverse polyp, erythematous lesion ( unclear etiology), hemorrhoids # hx of hydrothorax # s/p recent CABG (02/2018) For work up of her liver disease and to be able to calculate the MELD, we will check Hepatitis A IgG, IVON, anti-SMA, AMA, IGG4, ceruloplasmin level, HIV, CMP, INR/Pt. She already had the rest of the hepatitis panel done, which showed most likely a cleared hepatitis B infection, negative for Hep C. We will also check US doppler of the liver, and CXR for reduced breath sounds on the R side of the chest, given her liver disease and hx of hydrothorax. We will arrange for urgent referral to the hepatology clinic and get social workers to help her, since she currently has no insurance in place. The patient was seen and the plan was discussed with Dr. Covington. Antolin Erazo MD Gastroenterology & Hepatology Fellow Pager [phone] ATTESTATION I personally interviewed and examined the [...] concerns. Staff name: Dannielle Covington MD Date: 04/29/2018 KERS SKIVER in this encounter Plan of Treatment Order Schedule Name Priority Associated Diagnoses Expected: 04/28/2018, Expires: 04/28/2019 HEPATITIS A IGG Routine Dyspnea, unspecified type Hepatic cirrhosis, unspecified hepatic cirrhosis type, unspecified whether ascites present (HCC) Esophageal varices without bleeding, unspecified esophageal varices type (HCC) GAVE (gastric antral vascular ectasia) Long's esophagus without dysplasia Anemia, unspecified type Expected: 04/28/2018, Expires: 04/28/2019 ANTI-NUCLEAR ANTIBODY(IVON) Routine Dyspnea, unspecified type Hepatic cirrhosis, unspecified hepatic cirrhosis type, unspecified whether ascites present (HCC) Esophageal varices without bleeding, unspecified esophageal varices type (HCC) GAVE (gastric antral vascular ectasia) Long's esophagus without dysplasia Anemia, unspecified type Expected: 04/28/2018, Expires: 04/28/2019 ANTI-SMOOTH MUSCLE AB Routine Dyspnea, unspecified type Hepatic cirrhosis, unspecified hepatic cirrhosis type, unspecified whether ascites present (HCC) Esophageal varices without bleeding, unspecified esophageal varices type (HCC) GAVE (gastric antral vascular ectasia) Long's esophagus without dysplasia Anemia, unspecified type Expected: 04/28/2018, Expires: 04/28/2019 ANTI-MITOCHONDRIAL ANTIBODY Routine Dyspnea, unspecified type Hepatic cirrhosis, unspecified hepatic cirrhosis type, unspecified whether ascites present (HCC) Esophageal varices without bleeding, unspecified esophageal varices type (HCC) GAVE (gastric antral vascular ectasia) Long's esophagus without dysplasia Anemia, unspecified type Expected: 04/28/2018 (Approximate), Expires: 04/28/2019 IGG SUBCLASSES Routine Dyspnea, unspecified type Hepatic cirrhosis, unspecified hepatic cirrhosis type, unspecified whether ascites present (HCC) Esophageal varices without bleeding, unspecified esophageal varices type (HCC) GAVE (gastric antral vascular ectasia) Long's esophagus without dysplasia Anemia, unspecified type Expected: 04/28/2018, Expires: 04/28/2019 CERULOPLASMIN Routine Dyspnea, unspecified type Hepatic cirrhosis, unspecified hepatic cirrhosis type, unspecified whether ascites present (HCC) Esophageal varices without bleeding, unspecified esophageal varices type (HCC) GAVE (gastric antral vascular ectasia) Long's esophagus without dysplasia Anemia, unspecified type Expected: 04/28/2018 (Approximate), Expires: 04/28/2019 HIV-1/2 ANTIGEN/ANTIBODY SCREEN Routine Dyspnea, unspecified type Hepatic cirrhosis, unspecified hepatic cirrhosis type, unspecified whether ascites present (HCC) Esophageal varices without bleeding, unspecified esophageal varices type (HCC) GAVE (gastric antral vascular ectasia) Long's esophagus without dysplasia Anemia, unspecified type Expected: 04/28/2018, Expires: 04/28/2019 COMPREHENSIVE METABOLIC PANEL Routine Dyspnea, unspecified type Hepatic cirrhosis, unspecified hepatic cirrhosis type, unspecified whether ascites present (HCC) Esophageal varices without bleeding, unspecified esophageal varices type (HCC) GAVE (gastric antral vascular ectasia) Long's esophagus without dysplasia Anemia, unspecified type Expected: 04/28/2018 (Approximate), Expires: 04/28/2019 PROTIME INR (PT) Routine Dyspnea, unspecified type Hepatic cirrhosis, unspecified hepatic cirrhosis type, unspecified whether ascites present (HCC) Esophageal varices without bleeding, unspecified esophageal varices type (HCC) GAVE (gastric antral vascular ectasia) Long's esophagus without dysplasia Anemia, unspecified type Expected: 04/28/2018 (Approximate), Expires: 04/28/2019 US DOPPLER ABD PELV RETROPER COMP Routine Dyspnea, unspecified type Hepatic cirrhosis, unspecified hepatic cirrhosis type, unspecified whether ascites present (HCC) Esophageal varices without bleeding, unspecified esophageal varices type (HCC) GAVE (gastric antral vascular ectasia) Long's esophagus without dysplasia Anemia, unspecified type Order Schedule Name Priority Associated Diagnoses Ordered: 04/28/2018 AMB REFERRAL TO HEPATOLOGY [facility] Dyspnea, unspecified type Hepatic cirrhosis, unspecified hepatic cirrhosis type, unspecified whether ascites present (HCC) Esophageal varices without bleeding, unspecified esophageal varices type (HCC) GAVE (gastric antral vascular ectasia) Long's esophagus without dysplasia Anemia, unspecified type as of this encounter Procedures Comments Procedure Name Priority Date/Time Associated Diagnosis CHEST 2 VIEWS STAT 04/28/2018 Dyspnea, unspecified type 5:31 PM BLOCKERS SKIVER in this encounter Results * CHEST 2 VIEWS (04/28/2018 5:31 PM BLOCKERS SKIVER) Impressions Performed At Improving edema with a [...] Interface, Radiant Results - 04/29/2018 10:53 AM BLOCKERS SKIVER Procedure: CHEST 2 VIEWS Clinical Indication: Shortness [...] Address City/State/Zipcode Phone Number [facility] RESULTS in this encounter Visit Diagnoses Diagnosis Dyspnea, unspecified type - Primary Hepatic cirrhosis, unspecified hepatic cirrhosis type, unspecified whether ascites present (HCC) Esophageal varices without bleeding, unspecified esophageal varices type (HCC) GAVE (gastric antral vascular ectasia) Angiodysplasia of stomach and duodenum (without mention of hemorrhage) Long's esophagus without dysplasia Long's esophagus Anemia, unspecified type in this encounter
--- OUTSIDE RECORDS SUMMARY | 2018-05-30 06:44 | XMS REPORT | Encounter Summary ---
Author Author [facility] Organization [facility] Address Unknown Phone Unavailable Care Team Providers Care Food Editor Name Role Phone Carla Wilson MD PCP Naima Field MD Unavailable Winnie Jorge MD Unavailable Encounter Details Care Team Description Date Type Department Cathy Tejeda MD [address] [place] [address] 04/08/2018 Anesthesia Cardiovascular Medicine Event Main [facility] [place], [place] [id number] Anesthesia Record Responsible Anesthesiologist Anesthesia Start Time Anesthesia Stop Time Procedure Name Ling Sidhu MD 04/08/18 1517 04/08/18 1604 TRANSESOPHAGEAL ECHOCARDIOGRAM Date Time Event Comment 1512 151 AN Equip Check 1517 Anes Start 1517 An Start Data 1517 Start Supplemental O2 1537 Anesthesia Ready 1604 an stop data 1604 Handoff to RN I completed my SBAR handoff to the receiving nurse. 1604 An Stop Meds Name Total lidocaine (2%) 200 mg/10mL Injection 80 mg syringe propofol (DIPRIVAN) 200 mg/ 20 mL 70 mg injection (VIAL) propofol (DIPRIVAN) infusion 40.43 mg phenylephrine (MAGDIEL-SYNEPHRINE) injection 50 mcg ketamine (KETALAR) 10 mg/mL injection 30 mg sodium chloride 0.9 % infusion (500 200 mL mL bag) * Name O2 * No blood administrations on file. Removal Type Details Placement Wounds 02/16/18; 1831; Chest; Surgical 02/16/18 1831 by Gregg, (NOT for Incision; silverlon and wound vac (1 Nichelle RN Pressure sponge) Injuries) Wounds 02/16/18; 1831; Leg; Surgical Incision; 02/16/18 1831 by Gregg, (NOT for 4x4 and covaderm Nichelle RN Pressure Injuries) Wounds 02/18/18; 0929; Anterior; Abdomen; CT 02/18/18 0929 by Nohemy, (NOT for exit x3 Samia, RN Pressure Injuries) Wounds 02/25/18; 0930; Left; Back; CT exit 02/25/18 0930 by Elías, (NOT for Daphne RN Pressure Injuries) Wounds 03/31/18; 1142; Left, Upper; Back; 03/31/18 1142 by Dante, (NOT for Surgical Incision; old chest tube site Erendira, RN Pressure Injuries) Wounds 04/01/18; 1100; Mid; Sternum; Surgical 04/01/18 1100 by Bart, (NOT for Incision Samantha, RN Pressure Injuries) Wounds 04/01/18; 1100; Left, Lower; Leg; 04/01/18 1100 by Bart, (NOT for Surgical Incision Samantha, RN Pressure Injuries) Wounds 04/03/18; 0523; Posterior; Leg; Skin 04/03/18 0523 by Alma, (NOT for Tear; skin tear from bedside commode THOMPSON Anna Pressure Injuries) 04/08/18 180 by Estrella Crowder RN Peripheral 03/29/18; 2153; IV Therapy; R; Upper Arm 03/29/18 215 by Sunshine IV (cephalic); 20 G; No; Ultrasound; 1; THOMPSON Patino 1.75 inches; 04/08/18; 1805 in this encounter Social History Date Tobacco Use Types Packs/Day [...] cognitive impairment: Yes as of this encounter Plan of Treatment Not on fileas of this encounter Visit Diagnoses Not on filein this encounter Administered Medications Action Date Dose Rate Site Medication Order MAR Action 04/08/2018 3:34 PM CDT 30 mg ketamine (KETALAR) injection Given INTRA-PROCEDURE MED, Starting Ashley 04/08/18 at 1534, Until Ashley 04/08/18 at 1605, Anesthesia Intra-op 04/08/2018 3:34 PM CDT 80 mg lidocaine (PF) injection Given INTRA-PROCEDURE MED, Starting Ashley 04/08/18 at 1534, Until Ashley 04/08/18 at 1605, Anesthesia Intra-op 04/08/2018 3:39 PM CDT 50 mcg phenylephrine (MAGDIEL-SYNEPHRINE) injection Given INTRA-PROCEDURE MED, Starting Ashley 04/08/18 at 1539, Until Ashley 04/08/18 at 1605, Symptomatic Hypotension, Anesthesia Intra-op 04/08/2018 3:46 PM CDT 30 mcg/kg/min 19.2 mL/hr propofol (DIPRIVAN) infusion Dose/Rate 20 mL, Intravenous, INTRA-PROCEDURE Change MED(CONT), Starting Ashley 04/08/18 at 1541, Until Ashley 04/08/18 at 1605, Anesthesia Intra-op 10 mcg/kg/min 6.4 mL/hr Given - New Bag 04/08/2018 3:41 PM CDT 04/08/2018 3:46 PM CDT 20 mg propofol (DIPRIVAN) injection Given INTRA-PROCEDURE MED, Starting Ashley 04/08/18 at 1534, Until Ashley 04/08/18 at 1605, Anesthesia Intra-op 10 mg Given 04/08/2018 3:44 PM CDT 10 mg Given 04/08/2018 3:36 PM CDT 04/08/2018 3:10 PM CDT sodium chloride 0.9 % infusion Given - New INTRA-PROCEDURE MED(CONT), Starting Ashley Bag 04/08/18 at 1510, Until Ashley 04/08/18 at 1605, Anesthesia Intra-op in this encounter
--- NOTE | 2018-05-30 06:49 | Diagnostic Imaging Report ---
Indication: Dyspnea. Comparison: 05/28/2018. Discussion: Single portable upright view of the chest was obtained. Cardiomegaly is again noted. Opacities within the left lung are increasing, likely worsening atelectasis or pneumonia. Left pleural effusion is stable. Mild venous congestion noted on the right. Median sternotomy is stable. No osseous abnormality. Impression: 1. Cardiomegaly with stable left pleural effusion and worsening infiltrates. Dictated by: Dictated on workstation # [id number]
--- OUTSIDE RECORDS SUMMARY | 2018-05-30 06:49 | XMS REPORT | Encounter Summary ---
Author Author [facility] Organization [facility] Address Unknown Phone Unavailable Care Team Providers Care Patient Admitting Clerk Name Role Phone Carla Wilson MD PCP Naima Field MD Unavailable Winnie Jorge MD Unavailable Reason for Referral * Consult, Test & Treat (Routine) Referred By Contact Referred To Contact Status Reason Specialty Diagnoses / Procedures Felisa Hector MD [address] [id number] [facility] [place] [address] Closed Cardiology Procedures CARDIOLOGY HEART FAILURE FOLLOW UP APPOINTMENT REQUEST * Consult, Test & Treat (Routine) Referred By Contact Referred To Contact Status Reason Specialty Diagnoses / Procedures Felisa Hector MD [address] [place] [address] [facility] [address] [place] [address] Closed Cardiology Procedures CARDIOLOGY HEART FAILURE FOLLOW UP APPOINTMENT REQUEST * (Routine) Referred By Contact Referred To Contact Status Reason Specialty Diagnoses / Procedures Deepak Miner MD [address] [place] [address] New Request Procedures F/U APPT REQUEST: [facility] ([facility]B) * (Routine) Referred By Contact Referred To Contact Status Reason Specialty Diagnoses / Procedures Deepak Miner MD [address] [facility] [address] [place] [address] New Request Procedures F/U APPT REQUEST: [facility] Reason for Visit * Reason Comments Shortness of Breath CABG x4 1 month ago, sob, in and out of afib and flutter Encounter Details Care Team Description Date Type Department Jarad eFlix MD [address] [facility] [address] [place] [address] [phone] Kavon Pak MD [address] [facility] [address] [place] [address] [phone] Deepak Miner MD [address] [facility] [address] [place] [address] [phone] Felisa Hector MD [address] [place] [address] [phone] Atrial fibrillation with rapid ventricular response (HCC) 03/25/2018 [facility] Cardio Prgrs Care - Encounter [address] [facility]. 04/08/2018 [place] [address] Social History Date Tobacco Use Types Packs/Day [...] Vital Signs Time Taken Vital Sign Reading 04/08/2018 5:13 PM CDT Blood Pressure 104/53 04/08/2018 4:35 PM CDT Pulse 76 04/08/2018 5:13 PM CDT Temperature 36.4 C (97.6 F) - Respiratory Rate - 04/08/2018 5:13 PM CDT Oxygen Saturation 91% - Inhaled Oxygen - Concentration 04/08/2018 4:06 PM CDT Weight 106.1 kg (234 lb) 04/08/2018 4:06 PM CDT Height 162.6 cm (5' 4") 04/08/2018 4:06 PM CDT Body Mass Index 40.17 in this encounter Functional Status Date of [...] cognitive impairment: Yes as of this encounter Discharge Summaries * Ximena Bhardwaj MD - 04/08/2018 7:15 PM CDT Physician Discharge Summary Name: Lucrecia Fields Date Of : 1955 Age: 62 years Admit date: 03/25/2018 Discharge date: 04/08/2018 Attending Physician: Dr. Felisa Hector Service: Cardiology- 1st Round/CCU- 2634 Physician Summary completed by: XIMENA BHARDWAJ MD Reason for hospitalization: shortness of breath, dizziness/lightheadedness, chills, nausea, lower extremity swelling and palpitations Significant PMH: Past Medical History: Diagnosis Date Acquired hypothyroidism Arthritis Back pain Bleeding disorder (HCC) CAD (coronary artery disease), umkumiut coronary artery 02/16/2018 Chronic diastolic heart failure (HCC) 03/31/2018 Coronary artery disease Diabetes mellitus (HCC) Type II Essential hypertension 02/23/2018 Hypertension Stomach disorder Vision decreased Allergies: Sulfa (sulfonamide antibiotics); Duricef [cefadroxil]; Pravastatin; and Simvastatin Admission Physical Exam notable for: GENERAL: Alert and oriented x 4, no acute distress, cooperative EAR/NOSE/THROAT: Ears are clear bilaterally. Oropharynx pink and moist. CHEST: Lungs, clear to auscultation bilaterally with no wheezes, rales or rhonchi. No accessory muscle use or respiratory distress. Well healing midline sternotomy scar without any obvious signs of infection CV: Irregularly irregular rhythm. S1 and S2 noted. No murmurs noted. BUE/BLE pulses 2+. ABDOMINAL: Obese, Soft, non-tender, non-distended. Bowel Sounds present. No rebound tenderness, no guarding. EXTREMITIES: No significant deformity or joint abnormality. Significant lower extremity edema left greater than right, well healing saphenous vein graft harvesting scar HEME/LYMPH: No active bleeding. No cervical, supraclavicular or infraclavicular lymphadenopathy appreciated. Admission Lab/Radiology studies notable for: Sodium 134, Blood Urea Nitrogen 27 , Creatinine 1.62, Glucose 163, Hemoglobin 8.5 Brief Hospital Course: The patient was admitted and the following issues were addressed during this hospitalization: (with pertinent details). Mrs. 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 Her Shortness of breathe with lower extremity swelling was evaluated with lower extremity ultrasounds which revealed no evidence of deep vein thrombosis. Chest X-Ray revealed left sided pleural effusion, which required chest tube placement with subsequent removal after resolution. Oxygen was titrated down to room air, and the patient also received intravenous lasix for volume control. She was discharged on 40mg oral Torsemide for continued volume control. Her Acute kidney injury on presentation was found to be of prerenal etioogy, likely from cardiorenal syndrome. Nephrology was consulted, and her kidney function improved with diuresis, and a renal ultrasound was unrevealing for underlying pathology. As stated above, she is being continued on diuresis on return home. During this hospitalization, she was found to have consistent anemia which was attributed to barry known gastric antral vascular ectasia. She also had a short period of hematochezia, and gastroenterology was consulted for evaluation of her GI bleed, along with recommendation for further anticoagulation with known atrial fibrillation. She underwent esophagogastroduodeonoscopy which showed three columns of esophageal varices, mild portal hypertensive gastropathy without bleeding, along with possible Long's esophagus. Colonoscopy was also performed, but was difficult to interpret secondary to insufficient bowel preparation. She was found to have erythematous mucosa in ascending colon and in cecum, probably congestive colopathy; one 5mm polyp in the transverse colon; Erythematous flat lesion in transverse colon; Diverticulosis In the sigmoid colon, Non-bleeding external hemorrhoids. It is recommended that she follow up with gastroenterology for colonscopy as an outpatient. Also on admission, she was found on electrocardiogram to be in atrial fibrillation. She was rate controlled on diltiazem and metoprolol 100mg twice daily. Trans esophageal echocardiogram was performed which showed small residual flow in her left atrial appendage, along with unsuccessful ligation which occurred at the time of her previous coronary artery bypass graft. The risks and benefits of anticoagulation in the setting of her known bleeding history were discussed, and the stroke risk without anticoagulation was also discussed with her. She is being discharged without anticoagulation after these conversations, and has scheduled discharge with Cardiovascular. Condition at Discharge: Stable Discharge Diagnoses: Hospital Problems Active Problems * (Principal)Atrial fibrillation with rapid ventricular response (HCC) Type 2 diabetes mellitus with circulatory disorder, without long-term 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 (HCC) PAF (paroxysmal atrial fibrillation) (HCC) Chronic gastrointestinal bleeding Transfusion-dependent anemia CAD (coronary artery disease), [place] coronary artery HLD (hyperlipidemia) Hypothyroidism DELROY (acute kidney injury) (HCC) Essential hypertension Pleural effusion on left Left leg cellulitis Long's esophagus Acute on chronic diastolic heart failure due to coronary artery disease (HCC) Surgical Procedures: None Significant Diagnostic Studies and Procedures: noted in brief hospital course Consults: GI and Nephrology Patient Disposition: Home Patient instructions/medications: BASIC METABOLIC PANEL Standing Status: Future Standing Exp. Date: 04/05/19 You will have labs drawn at your appointment on 04/21. Activity as Tolerated It is important to keep increasing your activity level after you leave the hospital. Moving around can help prevent blood clots, lung infection (pneumonia ) and other problems. Gradually increasing the number of times you are up moving around will help you return to your normal activity level more quickly. Continue to increase the number of times you are up to the chair and walking daily to return to your normal activity level. Begin to work towards your normal activity level at discharge. Return Appointment This is a heart failure hospital follow-up visit with a heart failure specialist at the [facility] on the 1st floor of the hospital within [facility] . This appointment is very important to assess your fluid status, adjust medications, and prevent re-admission to the hospital. Please make every attempt to make it to the appointment. Please anticipate that this appointment will take approximately 2 hours to complete. Please arrive on time as you have been scheduled for blood work and medication review with the pharmacist prior to seeing your Heart Failure provider. Please bring all medication bottles and pill boxes to this appointment. Provider LENIN CRYS [[id number]] Location [facility] Appointment date: 04/21/2018 Appointment time: 10:00 AM Return Appointment This appointment is at the [facility] Cardiology office at [facility]. The number is . Provider FELISA HECTOR [[id number]] Location [facility] Appointment date: 05/21/2018 Appointment time: 1:00 PM Report These Signs and Symptoms Please contact your doctor if you have any of the following symptoms: uncontrolled pain, difficulty breathing, chest pain or severe abdominal pain Questions About Your Stay For questions or concerns regarding your hospital stay: - DURING BUSINESS HOURS (8:00 AM - 4:30 PM): Call [phone] and asked to be transferred to your discharge attending physician. - AFTER BUSINESS HOURS (4:30 PM - 8:00 AM, on weekends, or holidays): Call [phone] and ask the concrete pile driver operator to page the on-call doctor for the discharge attending physician. Discharging attending physician: FELISA HECTOR [[id number]] Cardiac Diet Limiting unhealthy fats and cholesterol is the most important step you can take in reducing your risk for cardiovascular disease. Unhealthy fats include saturated and trans fats. Monitor your sodium and cholesterol intake. Restrict your sodium to 2g (grams) or 2000mg (milligrams) daily, and your cholesterol to 200mg daily. If you have questions regarding your diet at home, you may contact a dietitian at . Current Discharge Medication List START taking these medications Details diltiazem CD (CARDIZEM CD) 180 mg capsule Take one capsule by mouth daily. Qty: 90 capsule, Refills: 3 PRESCRIPTION TYPE: Normal magnesium oxide (MAG-OX) 400 mg (241.3 mg magnesium) tablet Take one tablet by mouth twice daily. Qty: 180 tablet, Refills: 3 PRESCRIPTION TYPE: Normal potassium chloride SR (K-DUR) 20 mEq tablet Take one tablet by mouth daily. Take with a meal and a full glass of water. Qty: 90 tablet, Refills: 3 PRESCRIPTION TYPE: Normal pramoxine/zinc oxide (TRONOLANE) 1% / 5% topical cream Insert or Apply to rectal area as directed daily as needed (For Hemorrhoids). Qty: 28 g, Refills: 0 PRESCRIPTION TYPE: Normal torsemide(+) (DEMADEX) 20 mg tablet Take two tablets by mouth daily. Qty: 30 tablet, Refills: 3 PRESCRIPTION TYPE: Normal CONTINUE these medications which have been CHANGED or REFILLED Details rosuvastatin (CRESTOR) 40 mg tablet Take one tablet by mouth daily. Qty: 90 tablet, Refills: 3 PRESCRIPTION TYPE: Normal CONTINUE these medications which have NOT CHANGED Details acetaminophen (TYLENOL) 325 mg tablet Take two tablets by mouth every 6 hours as needed. Refills: 0 PRESCRIPTION TYPE: OTC aspirin 81 mg chewable tablet Chew one tablet by mouth daily with food. Qty: 90 tablet, Refills: 3 PRESCRIPTION TYPE: OTC cetirizine (ZYRTEC) 10 mg tablet Take 10 mg by mouth every morning. PRESCRIPTION TYPE: Historical Med clobetasol (TEMOVATE) 0.05 % topical cream Apply to affected area twice daily as needed PRESCRIPTION TYPE: Historical Med diphenhydrAMINE (BENADRYL ALLERGY) 25 mg tablet Take 25 mg by mouth at bedtime as needed. PRESCRIPTION TYPE: Historical Med folic acid (FOLVITE) 1 mg tablet Take 1 mg by mouth daily. PRESCRIPTION TYPE: Historical Med GLUCOSAMINE HCL/CHONDROITIN CALDERON (GLUCOSAMINE-CHONDROITIN PO) Take 1 tablet by mouth twice daily. PRESCRIPTION TYPE: Historical Med insulin aspart U-100 (NOVOLOG) 100 unit/mL injection Inject four Units under the skin three times daily with meals. Qty: 10 mL, Refills: 30 PRESCRIPTION TYPE: Normal insulin NPH (HUMULIN N NPH U-100 INSULIN) 100 unit/mL injection Inject fourteen Units under the skin every morning. Qty: 10 mL, Refills: 30 PRESCRIPTION TYPE: Normal Insulin Syringe-Needle U-100 (BD INSULIN SYRINGE ULTRA-FINE) 0.3 mL 31 gauge x 5 /16 syrg Use four times daily with Insulin Qty: 100 each, Refills: 0 PRESCRIPTION TYPE: Normal Comments: Please substitute per stock availability levothyroxine (SYNTHROID) 175 mcg tablet Take 175 mcg by mouth daily 30 minutes before breakfast. PRESCRIPTION TYPE: Historical Med metoprolol tartrate (LOPRESSOR) 100 mg tablet Take 100 mg by mouth twice daily. PRESCRIPTION TYPE: Historical Med nitroglycerin (NITROSTAT) 0.[address] 0.4 mg under tongue every 5 minutes as needed for Chest Pain. Max of 3 tablets, call 911. PRESCRIPTION TYPE: Historical Med omeprazole DR(+) (PRILOSEC) 40 mg capsule Take 40 mg by mouth twice daily. PRESCRIPTION TYPE: Historical Med ondansetron (ZOFRAN) 8 mg tablet Take 8 mg by mouth every 8 hours as needed for Nausea or Vomiting. PRESCRIPTION TYPE: Historical Med senna/docusate (SENOKOT-S) 8.6/50 mg tablet Take two tablets by mouth twice daily. Qty: 20 tablet, Refills: 0 PRESCRIPTION TYPE: Normal tiZANidine (ZANAFLEX) 4 mg tablet Take 4 mg by mouth every 6 hours as needed. PRESCRIPTION TYPE: Historical Med traMADol (ULTRAM) 50 mg tablet Take one tablet by mouth every 6 hours as needed for Pain. Qty: 30 tablet, Refills: 0 PRESCRIPTION TYPE: Print The following medications were removed from your list. This list includes medications discontinued this stay and those removed from your prior med list in our system furosemide (LASIX) 20 mg tablet sucralfate (CARAFATE) 1 gram tablet Scheduled appointments: Apr 21, 2018 10:00 AM EMERGENCY COMMUNICATIONS OFFICER Nurse Lab Visit with [facility] HF NURSE Cardiovascular Medicine ([facility]) [facility] [facility] [address] Apr 21, 2018 10:30 AM EMERGENCY COMMUNICATIONS OFFICER Hospital Follow Up with Crys Lindsey APRN Cardiovascular Medicine ([facility]) [facility] [address] [facility] [address] Apr 28, 2018 3:30 PM EMERGENCY COMMUNICATIONS OFFICER Return Patient with Antolin Erazo [facility] - Internal Medicine ([facility]) [facility] [address] [place] [address] May 21, 2018 1:00 PM EMERGENCY COMMUNICATIONS OFFICER RETURN PT LONG with Felisa Hector MD Cardiovascular Medicine ([facility]) [facility] [address] [facility] [address] Additional appointment instructions: You have multiple follow up appointments scheduled in the future at , as listed on this paper. Please be sure to follow up with your primary care physician after discharge from the hospital as well. You will need to have a repeat colonscopy performed on an outpatient bases, and have a follow up appointment with GI on 04/28/18 at 3:30PM Pending items needing follow up: Colonoscopy in 2-3 months time Signed: XIMENA BHARDWAJ MD 04/08/2018 cc: Primary Care Physician: Carla Wilson Verified Referring physicians: No ref. provider found Additional provider(s): in this encounter Discharge Instructions * Patient Instructions* Regi Ross, PT - 04/08/2018 11:00 AM CDT BASIC STANDING STRENGTHENING EXERCISES Research shows that lying in bed or limited activity makes your muscles weak and decreases your endurance for activity. Do these exercises to improve your strength. Have someone stand next to you at first for safety. Hold on to a table, counter, or sturdy chair for balance. Perform exercises slowly. DO NOT HOLD YOUR BREATH. Repeat exercises times, 2-3 times each day. These exercises should not cause pain. If painful, stop and consult your therapist. Standing March Lift right leg up as high as possible, bending knee Lower leg Lift left leg up as high as possible, bending knee Lower leg Toe Raises Raise up on the balls of your feet Return to start position and repeat Sit to Stand Begin in sitting position Keep head facing forward Scoot to edge of chair or bed Slowly lean forward and stand Sit and repeat If hard at first, start from a higher surface until you can stand smoothly Back Kick Bring leg backward, keeping knee straight Return to start position Repeat with other leg. Side Kick Keep knee straight, toes pointed forward, move one leg outward Return to start position Repeat with other leg Standing Balance Stand next to a counter Stand with feet together Try tokeep yourbalance You may need to lightly touch the counter Please call the Physical Therapy Department with any questions. [phone] SEATED STRENGTHENING EXERCISES Research shows that lying in bed or limited activity makes your muscles weak and decreases your endurance for activity. Do these exercises when you are up in a chair to improve your strength. Perform exercises slowly. DO NOT HOLD YOUR BREATH. Repeat exercises times, 2-3 times each day. These exercises should not cause pain. If painful, stop and consult your therapist. Ankle movement Sit in a comfortable position Move both feet up and down as shown. Seated leg kick Sit in a comfortable position with back straight. Straighten knee and lift foot. Hold for 3-5 seconds. Repeat with other leg. Seated marching Sit up straight in chair Lift up left leg as shown Lower leg Repeat with right leg Foot slide for knee motion Place foot on towel as shown Push foot forward and backward on towel. Repeat with other leg. Knee Squeeze Sit in chair or on firm surface with towel roll or pillow between knees. Squeeze legs together. Hold for 10 seconds. Please call the Physical Therapy Department with any questions [phone] * Appointments* Ximena Bhardwaj MD - 04/08/2018 1:57 PM CDT You have multiple follow up appointments scheduled in the future at , as listed on this paper. Please be sure to follow up with your primary care physician after discharge from the hospital as well. You will need to have a repeat colonscopy performed on an outpatient bases, and have a follow up appointment with JONATHAN GI on 04/28/18 at 3:30PM in this encounter Medications at Time of Discharge [...] every 6 hours as needed for Pain. 04/08/2018 04/28/2018 rosuvastatin (CRESTOR) 40 Take one 90 tablet 3 mg tablet tablet by mouth daily. as of this encounter Progress Notes * Ervin Woodall, DO - 04/08/2018 5:44 PM CDT Gastroenterology Progress Note Patient Name:Lucrecia Fields Admission Date: 03/25/2018 2:56 PM Principal Problem: Atrial fibrillation with rapid ventricular response (HCC) Active Problems: Type 2 diabetes mellitus with circulatory disorder, without long-term 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 (HCC) PAF (paroxysmal atrial fibrillation) (HCC) Chronic gastrointestinal bleeding Transfusion-dependent anemia CAD (coronary artery disease), [place] coronary artery HLD (hyperlipidemia) Hypothyroidism DELROY (acute kidney injury) (HCC) Essential hypertension Pleural effusion on left Left leg cellulitis Long's esophagus Acute on chronic diastolic heart failure due to coronary artery disease (HCC) Reason for consult: re-consulted for hematochezia x1 Assessment: 62 yo female p/w SOB and atrial fibrillation. PMH significant for CAD, STEMI, prior CABG 03/12 with subsequent development of atrial fibrillation/flutter not currently on anticoagulation, DM, hypertension. She had previously consulted for evaluation of anticoagulation versus ischemic risk in the setting of a presumed chronic GI bleed. EGD performed 03/29 notable for findings of small amount of GAVE, portal hypertensive gastropathy, grade 1 esophageal varices. No APC performed due to lack of benefit in the setting of small amount of GAVE. Patient now presents with one episode of hematochezia, described as bright red blood per rectum while on heparin to warfarin bridge for atrial fibrillation prophylactic anticoagulation. #Hematochezia #GAVE #Esophageal varices #Need for recurrent blood transfusions #Atrial fibrillation/flutter, not currently anticoagulated #Recent CABG procedure Recommendations: --Patient's hemoglobin is relatively stable --CS yesterday without significant bleeding findings; erythema in the ascending and cecum, non bleeding diverticulosis, external hemorrhoids. Suspect this might be related to hemorrhoidal bleeding --At this point, no contraindication from a GI perspective to resume anticoagulation, should the cardiology team feel it necessary. Discussed previously with the patient about the risks of GIB with AC and discussed them again today (ischemia vs recurrent GIB) in regards to her high CHADS-VASC risk score --GI will sign off at this point. If there are any further questions, please do not hesitate to give us a call. Patient discussed with attending on service, Dr. Rolando Woodall DO Pager [phone] GI Fellow 04/08/2018 5:45 PM Interval Events No acute events overnight Patient still with small episodes of hematochezia, mostly mixed with small amount of stool Abdominal pain is minimal The patient feels otherwise well, denies any fever/chills, SOB, chest pain, N/V , dysuria. PMH: Past Medical History: Diagnosis Date Acquired hypothyroidism Arthritis Back pain Bleeding disorder (HCC) CAD (coronary artery disease), [place] coronary artery 02/16/2018 Chronic diastolic heart failure (HCC) 03/31/2018 Coronary artery disease Diabetes mellitus (HCC) Type II Essential hypertension 02/23/2018 Hypertension Stomach disorder Vision decreased Current medications: No current facility-administered medications on file prior to encounter. Current Outpatient Prescriptions on File Prior to Encounter Medication Sig Dispense Refill acetaminophen (TYLENOL) 325 mg tablet Take two tablets by mouth every 6 hours as needed. 0 aspirin 81 mg chewable tablet Chew one tablet by mouth daily with food. 90 tablet 3 cetirizine (ZYRTEC) 10 mg tablet Take 10 mg by mouth every morning. folic acid (FOLVITE) 1 mg tablet Take 1 mg by mouth daily. GLUCOSAMINE HCL/CHONDROITIN CALDERON (GLUCOSAMINE-CHONDROITIN PO) Take 1 tablet by mouth twice daily. insulin aspart U-100 (NOVOLOG) 100 unit/mL injection Inject four Units under the skin three times daily with meals. 10 mL 30 insulin NPH (HUMULIN N NPH U-100 INSULIN) 100 unit/mL injection Inject fourteen Units under the skin every morning. 10 mL 30 Insulin Syringe-Needle U-100 (BD INSULIN SYRINGE ULTRA-FINE) 0.3 mL 31 gauge x 5/16 syrg Use four times daily with Insulin 100 each 0 levothyroxine (SYNTHROID) 175 mcg tablet Take 175 mcg by mouth daily 30 minutes before breakfast. nitroglycerin (NITROSTAT) 0.[address] 0.4 mg under tongue every 5 minutes as needed for Chest Pain. Max of 3 tablets, call 911. omeprazole DR(+) (PRILOSEC) 40 mg capsule Take 40 mg by mouth twice daily. ondansetron (ZOFRAN) 8 mg tablet Take 8 mg by mouth every 8 hours as needed for Nausea or Vomiting. senna/docusate (SENOKOT-S) 8.6/50 mg tablet Take two tablets by mouth twice daily. (Patient taking differently: Take 2 tablets by mouth at bedtime daily.) 20 tablet 0 traMADol (ULTRAM) 50 mg tablet Take one tablet by mouth every 6 hours as needed for Pain. 30 tablet 0 PSH: Past Surgical History: Procedure Laterality Date HX HEART CATHETERIZATION 2017 CORONARY STENT PLACEMENT 2017 CORONARY ARTERY BYPASS GRAFT N/A 02/16/2018 CORONARY ARTERY BYPASS WITH ARTERIAL GRAFT - 4 GRAFTS (Internal Mammary Artery and Endovascular Vein [place]) performed by Lance Pal [facility] at [facility] HX MAZE N/A 02/16/2018 MAZE PROCEDURE performed by Lance Pal MD at [facility] UPPER GASTROINTESTINAL ENDOSCOPY N/A 03/29/2018 ESOPHAGOGASTRODUODENOSCOPY performed by Dannielle Covington MD at ENDO/GI ANKLE SURGERY Left ankle reconstruction COLONOSCOPY HX KNEE ARTHROSCOPY Left HX TONSIL AND ADENOIDECTOMY TUBAL LIGATION UPPER GASTROINTESTINAL ENDOSCOPY SH: Social History Social History Marital status: Spouse name: N/A Number of children: N/A Years of education: N/A Occupational History Not on file. Social History Main Topics Smoking status: Former Smoker Packs/day: 2.00 Years: 10.00 Types: Cigarettes Quit date: 09/28/1981 Smokeless tobacco: Never Used Alcohol use Yes Comment: Seldom Drug use: No Sexual activity: Not on file Other Topics Concern Not on file Social History Narrative No narrative on file FH: Family History Problem Relation Age of Onset [...] Grandmother Diabetes Paternal Grandmother Cancer Paternal Grandfather Physical Exam: Vitals: 04/08/18 1625 04/08/18 1630 04/08/18 1635 04/08/18 1713 BP: 116/51 109/55 114/51 104/53 Pulse: 78 76 76 Temp: 36.4 C (97.6 F) SpO2: (!) 91% 94% (!) 91% (!) 91% Weight: Height: General - Alert and oriented, no acute distress. Head - Normocephalic, atraumatic. Eyes - EOMI grossly. No icterus or injection. Oropharynx- No ulcer or bleeding, moist mucosa. Neck - No swelling or tracheal deviation. Lung - soft crackles in b/l bases, on 2L NC Abd - Soft, minimally TTP generalized, non distended, normal bowel sounds, no hepatospenomegaly. Extremities - Warm, dry. 2+ pitting edema b/l LEs Skin - No exposed rash, lesion. Neurological - No gross deficit Labs/Imaging: Pertient labs/imaging was reviewed on initiation of progress note. * Estrella Crowder, THOMPSON - 04/08/2018 4:44 PM CDT Heart Failure Nursing Progress Note Admission Date: 03/25/2018 LOS: 14 days Admission Weight: 113.8 kg (250 lb 12.8 oz) Most recent weights (inpatient): Vitals: 04/05/18 0305 04/06/18 0510 04/08/18 1606 Weight: 108 kg (238 lb) 106.4 kg (234 lb 9.6 oz) 106.1 kg (234 lb) Weight change from previous day:-0.3kg Fluid restriction ordered: 2000ml Intake/Output Summary: (Last 24 hours) Intake/Output Summary (Last 24 hours) at 04/08/18 1644 Last data filed at 04/08/18 1601 Gross per 24 hour Intake 1000 ml Output 50 ml Net 950 ml Is patient incontinent No Anticipated discharge date: 04/08 Discharge goals: Get back home. Daily Assessment of Patient Stated Goals: Short Term Goal Identified by patient (Short Term=during hospitalization): Get back home. * Marisa Garrison RN - 04/08/2018 3:34 PM CDT Pre-Operative Assessment for TODD or Cardioversion Date of Service: 04/08/2018 Lucrecia Fields is a 62 y.o. y.o. female. : 1955 Procedure to be performed: TODD Expected Procedure Date: 04/08/2018 Indication: Atrial Flutter Patient appears alert and oriented: Yes NPO: for greater than 8 hours Inpatient IV status: 20 R U FA Isolation status: None Last TODD date: 02/16/2018 Last Cardioversion date: None Anticoagulation Results Anticoagulant: none Missed dose: N/A Last MAC INR Flow Sheet Entry: Last recorded Lab results: INR Date Value Ref Range Status 04/08/2018 1.6 (H) 0.8 - 1.2 Final 04/07/2018 1.6 (H) 0.8 - 1.2 Final 04/06/2018 1.6 (H) 0.8 - 1.2 Final 04/05/2018 1.5 (H) 0.8 - 1.2 Final 04/04/2018 1.4 (H) 0.8 - 1.2 Final 02/16/2018 1.3 (H) 0.8 - 1.2 Final APTT Date Value Ref Range Status 04/08/2018 30.2 20.0 - 36.0 SEC Final Comment: NOTE NEW REFERENCE RANGES Allergies Allergies Allergen Reactions Sulfa (Sulfonamide Antibiotics) RASH Duricef [Cefadroxil] NAUSEA AND VOMITING Pravastatin NAUSEA AND VOMITING Simvastatin NAUSEA AND VOMITING Vitals Estimated body mass index is 40.27 kg/m as calculated from the following: Height as of this encounter: 1.626 m (5' 4"). Weight as of this encounter: 106.4 kg (234 lb 9.6 oz). Diagnostic Tests White Blood Cells Date Value Ref Range Status 04/08/2018 4.4 (L) 4.5 - 11.0 K/UL Final Hemoglobin Date Value Ref Range Status 04/08/2018 8.1 (L) 12.0 - 15.0 GM/DL Final Hematocrit Date Value Ref Range Status 04/08/2018 25.0 (L) 36 - 45 % Final Platelet Count Date Value Ref Range Status 04/08/2018 129 (L) 150 - 400 K/UL Final Sodium Date Value Ref Range Status 04/08/2018 136 (L) 137 - 147 MMOL/L Final Potassium Date Value Ref Range Status 04/08/2018 4.2 3.5 - 5.1 MMOL/L Final Magnesium Date Value Ref Range Status 04/08/2018 2.3 1.6 - 2.6 mg/dL Final Blood Urea Nitrogen Date Value Ref Range Status 04/08/2018 32 (H) 7 - 25 MG/DL Final Creatinine Date Value Ref Range Status 04/08/2018 1.44 (H) 0.4 - 1.00 MG/DL Final Glucose Date Value Ref Range Status 04/08/2018 135 (H) 70 - 100 MG/DL Final Blood Cultures Microbiology - Resulted Micro Last 72 Hrs CULTURE-BLOOD W/SENSITIVITY Resulted: 04/06/18 0142, Result status: Final result Ordering provider: Shashi Chan MD 03/31/18 9084 Resulting lab: MAIN LAB Specimen Information Source Collected On Blood 03/31/18 1768 Components Component Value Flag Battery Name BLOOD CULTURE Specimen Description -- Result: BLOOD LEFT ANTECUBITAL Special Requests NONE Culture NO GROWTH 5 DAYS Report Status -- Result: FINAL 04/06/2018 CULTURE-BLOOD W/SENSITIVITY Resulted: 04/06/18 0142, Result status: Final result Ordering provider: Shashi Chan MD 03/31/18 2018 Resulting lab: MAIN LAB Specimen Information Source Collected On Blood 03/31/18 4028 Components Component Value Flag Battery Name BLOOD CULTURE Specimen Description -- Result: BLOOD RIGHT ANTECUBITAL Special Requests NONE Culture NO GROWTH 5 DAYS Report Status -- Result: FINAL 04/06/2018 Echo procedures within the past 30 days: No results found. Device Information on File No results found for: GENERATOR, EPDEVTYP Current Medications No current facility-administered medications on file prior to encounter. Current Outpatient Prescriptions on File Prior to Encounter Medication Sig Dispense Refill acetaminophen (TYLENOL) 325 mg tablet Take two tablets by mouth every 6 hours as needed. 0 aspirin 81 mg chewable tablet Chew one tablet by mouth daily with food. 90 tablet 3 cetirizine (ZYRTEC) 10 mg tablet Take 10 mg by mouth every morning. folic acid (FOLVITE) 1 mg tablet Take 1 mg by mouth daily. GLUCOSAMINE HCL/CHONDROITIN CALDERON (GLUCOSAMINE-CHONDROITIN PO) Take 1 tablet by mouth twice daily. insulin aspart U-100 (NOVOLOG) 100 unit/mL injection Inject four Units under the skin three times daily with meals. 10 mL 30 insulin NPH (HUMULIN N NPH U-100 INSULIN) 100 unit/mL injection Inject fourteen Units under the skin every morning. 10 mL 30 Insulin Syringe-Needle U-100 (BD INSULIN SYRINGE ULTRA-FINE) 0.3 mL 31 gauge x 5/16 syrg Use four times daily with Insulin 100 each 0 levothyroxine (SYNTHROID) 175 mcg tablet Take 175 mcg by mouth daily 30 minutes before breakfast. nitroglycerin (NITROSTAT) 0.[address] 0.4 mg under tongue every 5 minutes as needed for Chest Pain. Max of 3 tablets, call 911. omeprazole DR(+) (PRILOSEC) 40 mg capsule Take 40 mg by mouth twice daily. ondansetron (ZOFRAN) 8 mg tablet Take 8 mg by mouth every 8 hours as needed for Nausea or Vomiting. senna/docusate (SENOKOT-S) 8.6/50 mg tablet Take two tablets by mouth twice daily. (Patient taking differently: Take 2 tablets by mouth at bedtime daily.) 20 tablet 0 traMADol (ULTRAM) 50 mg tablet Take one tablet by mouth every 6 hours as needed for Pain. 30 tablet 0 Past Medical History Past Medical History: Diagnosis Date Acquired hypothyroidism Arthritis Back pain Bleeding disorder (HCC) CAD (coronary artery disease), [place] coronary artery 02/16/2018 Chronic diastolic heart failure (HCC) 03/31/2018 Coronary artery disease Diabetes mellitus (HCC) Type II Essential hypertension 02/23/2018 Hypertension Stomach disorder Vision decreased Past Surgical History Past Surgical History: Procedure Laterality Date HX HEART CATHETERIZATION 2016 CORONARY STENT PLACEMENT 2016 CORONARY ARTERY BYPASS GRAFT N/A 02/16/2018 CORONARY ARTERY BYPASS WITH ARTERIAL GRAFT - 4 GRAFTS (Internal Mammary Artery and Endovascular Vein [place]) performed by Lance Pal MD at [facility] HX MAZE N/A 02/16/2018 MAZE PROCEDURE performed by Lance Pal MD at [facility] UPPER GASTROINTESTINAL ENDOSCOPY N/A 03/29/2018 ESOPHAGOGASTRODUODENOSCOPY performed by Dannielle Covington MD at ENDO/GI ANKLE SURGERY Left ankle reconstruction COLONOSCOPY HX KNEE ARTHROSCOPY Left HX TONSIL AND ADENOIDECTOMY TUBAL LIGATION UPPER GASTROINTESTINAL ENDOSCOPY Social History Social History Substance Use Topics Smoking status: Former Smoker Packs/day: 2.00 Years: 10.00 Types: Cigarettes Quit date: 09/28/1981 Smokeless tobacco: Never Used Alcohol use Yes Comment: Seldom Additional Comments: None Probe Assessment (only for TODD procedures): Positive for: GERD, Hx. Chest surgery/radiation, Varices - EGD 03/29/2018 and Hx. GI Bleeding Sedation Assessment: Positive for: O2 , Sleep Apnea/VICKI and CPAP * Reilly Olivera - 04/08/2018 2:36 PM CDT Renal Progress Note Name: Lucrecia Fields Today's Date: 04/08/2018 Admission Date: 03/25/2018 LOS: 14 days Assessment and Plan Principal Problem: Atrial fibrillation with rapid ventricular response (HCC) Active Problems: Type 2 diabetes mellitus with circulatory disorder, without long-term 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 (HCC) PAF (paroxysmal atrial fibrillation) (HCC) Chronic gastrointestinal bleeding Transfusion-dependent anemia CAD (coronary artery disease), [place] coronary artery HLD (hyperlipidemia) Hypothyroidism DELROY (acute kidney injury) (HCC) Essential hypertension Pleural effusion on left Left leg cellulitis Long's esophagus Acute on chronic diastolic heart failure due to coronary artery disease (HCC) Lucrecia Fields is a 62 y.o. female s/p CABG admitted for dyspnea and volume overload. DELROY -no significant CKD -renal ultrasound without hydronephrosis -no recent nephrotoxins -creatinine progressively increasing -I&O appear inaccurate -FeUrea 8% suggesting renal hypoperfusion Atrial flutter Leukocytosis CAD s/p CABG Anemia HTN Hyponatremia, hypervolemic Encephalopathy, likely related to hypercapnea Recommendations: -renal function near baseline -torsemide started today -please call with questions or concerns Reilly Olivera MD PGY-5 Nephrology Fellow Pager [phone] Subjective Lucrecia Fields is a 62 y.o. female torsemide started today, NPO for TODD, patient reports feeling funny today. Medications Medications MEDS aspirin 81 mg Oral QDAY cetirizine 10 mg Oral QAM8 diltiazem CD 180 mg Oral QDAY folic acid 1 mg Oral QDAY insulin aspart U-100 0-14 Units Subcutaneous ACHS insulin NPH 18 Units Subcutaneous QDAY(07) levothyroxine 175 mcg Oral QDAY 30 min before breakfast magnesium oxide 400 mg Oral BID melatonin 5 mg Oral QHS metoprolol tartrate 100 mg Oral BID nystatin Topical BID pantoprazole DR 80 mg Oral QDAY(21) rosuvastatin 40 mg Oral QDAY senna/docusate 2 tablet Oral BID sodium chloride 0.9% (NS) 500 mL Intravenous ONCE torsemide(+) 40 mg Oral QDAY IV MEDS Prn acetaminophen Q6H PRN 650 mg at 04/03/18 1814, hydrOXYzine TID PRN 25 mg at 04/07/18 2020, nitroglycerin Q5 MIN PRN, ondansetron Q8H PRN 8 mg at 1116, pramoxine/zinc oxide QDAY PRN, traMADol Q6H PRN 50 mg at 04/08/18 0124 Physical Exam Vital Signs: Last Filed In 24 Hours Vital Signs: 24 Hour Range BP: 100/61 (04/08 142) Temp: 36.4 C (97.6 F) (04/08 1400) Pulse: 66 (04/08 142) Respirations: 18 PER MINUTE (04/08 142) SpO2: 91 % (04/08 142) O2 Delivery: None (Room Air) (04/08 1422) BP: (95-128)/(41-61) Temp: [36.3 C (97.4 F)-36.7 C (98.1 F)] Pulse: [66-95] Respirations: [16 PER MINUTE-20 PER MINUTE] SpO2: [84 %-96 %] O2 Delivery: None (Room Air) Intensity Pain Scale (Self Report): 4 (04/08/18 1422) Intake/Output Summary (Last 24 hours) at 04/08/18 1436 Last data filed at 04/08/18 0722 Gross per 24 hour Intake 800 ml Output 50 ml Net 750 ml Vitals: 04/04/18 0400 04/05/18 0305 04/06/18 0510 Weight: 110.5 kg (243 lb 9.6 oz) 108 kg (238 lb) 106.4 kg (234 lb 9.6 oz) Gen: drowsy, mild respiratory distress HEENT: Sclera normal; MMM CV:no JVD, regular rhythm Pulm: Clear to Auscultation bilateral, diminished GI: BS+ x4, non-tender to palpation Neuro: drowsy, moving all ext Ext: mild ble edema, no clubbing or cyanosis Skin: no rash, dry Labs: Recent Labs 04/06/1829904/07/1842404/08/18 0500 NA 135* 137 136* K 4.3 4.3 4.2 CL 95* 93* 93* CO2 34* 37* 36* GAP 6 7 7 BUN 38* 34* 32* CR 1.38* 1.32* 1.44* GLU 145* 129* 135* CA 9.6 10.1 9.4 MG 2.0 2.3 2.3 Recent Labs 04/05/18214704/06/1829904/07/1842404/08/18 0500 WBC 5.3 4.5 4.4* 4.4* HGB 8.3* 8.2* 9.1* 8.1* HCT 25.7* 24.8* 27.5* 25.0* PLTCT 145* 132* 130* 129* INR -- 1.6* 1.6* 1.6* PTT -- 20.4 29.1 30.2 Estimated Creatinine Clearance: 49.5 mL/min (A) (based on SCr of 1.44 mg/dL (H)) . Vitals: 04/04/18 0400 04/05/1830404/06/18 0510 Weight: 110.5 kg (243 lb 9.6 oz) 108 kg (238 lb) 106.4 kg (234 lb 9.6 oz) No results for input(s): PHART, PO2ART in the last 72 hours. Invalid input(s): PC02A Associated attestation - Alyx Noland MBBS - 04/08/2018 7:19 PM CDT ATTESTATION I personally performed the history and the physical examination of the patient and discussed his management with the fellow (resident). I reviewed the fellow' s (residents) note and agree with the documented findings and plan of care. Staff name: Alyx Noland Date: 04/08/2018 * Aleyda Durham, OT - 04/08/2018 2:06 PM CDT OCCUPATIONAL THERAPY NO TREATMENT NOTE The patient was not seen due to: Patient not available Pt chart reviewed. Upon approaching pt's room pt is being transported off unit. Will f/u as able/appropriate. Attempted to see patient 1 time. Therapist: LYNN Tolliver/Sky[place] [id number] Date: 04/08/2018 * Bia Vega - 04/08/2018 12:43 PM CDT CLINICAL NUTRITION Clinical Nutrition Assessment Summary NAME:Lucrecia Fields :1955 AGE: 62 y.o. ADMISSION DATE: 03/25/2018 DAYS ADMITTED: LOS: 14 days Nutrition Assessment of Patient: Malnutrition Assessment: Does not meet criteria Current Oral Intake: NPO, Inadequate Estimated Calorie Needs: 3165-3920 kcal/day (22-25 kcal/kg desired body weight 65.8kg) Estimated Protein Needs: 80gm (1.2gm/kg desired body weight 65.8kg) Oral Diet Order: NPO Comments: 62 y.o. female with a PMH of Acquired hypothyroidism, CAD s/p CABG on 02/16/2018, hypertension, dyslipidemia, diabetes, hypothyroidism, CKD, and cellulitis presented with shortness of breath, dizziness/lightheadedness, chills, nausea, lower extremity swelling and palpitations. 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 Pt transferred to CCU for respiratory distress and AMS; now resolved. Pt back on floor. Pt is requiring frequent blood transfusions. Pt has been on and off NPO for procedures. s/p Colonoscopy 04/07. Pt currently remains NPO. Pt lethargic while in room and was unable to gather meaningful information. She did note that prior to admit her appetite and meal intake were not doing well. Pts admit weight of 250# with current body weight of 234# with -8L net I/O since admit and BLE pitting 2+ edema currently documented. RD will continue to monitor pt. Recommendation: Recommend advance diet as tolerated to low sodium diet Intervention / Plan: RD will monitor NPO status Will monitor labs, meds, wt, gi function, i/os, and need for further nutrition intervention Nutrition Diagnosis: Inadequate oral intake Etiology: Decreased ability to consume sufficient energy Signs & Symptoms: Pt NPO status, GI function Goals: Avoid prolonged NPO status Time Frame: Within [address], LD *[id number] * Regi Ross, PT - 04/08/2018 11:13 AM CDT PHYSICAL THERAPY PROGRESS NOTE MOBILITY: Progressive Mobility Level: Walk in room Distance Walked (feet): 50 ft Level of Assistance: Stand by assistance Assistive Device: None Time Tolerated: 11-30 minutes Activity Limited By: Weakness;Fatigue SUBJECTIVE: Significant hospital events: s/p CABG/MAZE/ ligation SETH on Dr. Pal on admitted 03/25/18 with atrial fibrillation and left pleural effusion. Chest tube placed 03/26. rapid responded 04/01 and tranaferred to cicu. s/p colonoscopy 04/07, TODD planned 04/08 PM Mental / Cognitive Status: Alert;Cooperative;Follows Commands Persons Present: Spouse Pain: Patient has no complaint of pain Pain Location: Back Pain Description: Aching Pain Interventions: Patient agrees to participate in therapy Ambulation Assist: Independent Mobility at Household Level without Device Patient Owned Equipment: None Home Situation: Lives with Family Type of Home: House Entry Stairs: Ramp In-Home Stairs: Able to Live on One Level BED MOBILITY/TRANSFERS: Bed Mobility: Sit to Supine: Standby Assist;Bed Flat Comments: Patient recieved in bedside chair Transfer Type: Sit to/from Stand Transfer: Assistance Level: To/From;Bed Side Chair;Standby Assist Transfer: Assistive Device: None Transfers: Type Of Assistance: For Safety Considerations Other Transfer Type: Sit to/from Stand Other Transfer: Assistance Level: To/From;Bed;Standby Assist Other Transfer: Assistive Device: None Other Transfer: Type Of Assistance: For Safety Considerations Repeated sit to stands from edge of bed performed. Patient completed with supervision End Of Activity Status: In Bed;Nursing Notified;Instructed Patient to Request Assist with Mobility;Instructed Patient to Use Call Light GAIT: Gait Distance: 50 feet Gait: Assistance Level: Standby Assist;Safety Considerations Gait: Assistive Device: None Gait: Descriptors: Pace: Slow;Normal step length Comments: Patient reports concerns for knees buckling in the past, however states she has been able to get around her room without difficulty the past few days. Patient noted to walk with minimal knee flexion throughout cycle bilaterally. Activity Limited By: Complaint of Fatigue;Weakness EDUCATION: Persons Educated: Patient/Family Patient Barriers To Learning: None Noted Interventions: Repetition of Instructions;Family Education Teaching Methods: Verbal Instruction Patient Response: Verbalized Understanding;More Instruction Required Topics: Plan/Goals of PT Interventions;Mobility Progression;Safety Awareness;Up with Assist Only;Importance of Increasing Activity;Ambulate With Nursing; Recommend Continued Therapy ASSESSMENT/PROGRESS: Impaired Mobility Due To: Decreased Activity Tolerance;Safety Concerns;Impaired Balance;Decreased Strength Assessment/Progress: Should Improve w/ Continued PT AM-PAC 6 Clicks Basic Mobility Inpatient Turning from your back to your side while in a flat bed without using bed rails : A Little Moving from lying on your back to sitting on the side of a flatbed without using bedrails : A Little Moving to and from a bed to a chair (including a wheelchair): A Little Standing up from a chair using your arms (e.g. wheelchair, or bedside chair): A Little To walk in hospital room: A Little Climbing 3-5 steps with a railing: A Lot Raw Score: 17 Standardized (T-scale) Score: 39.67 Basic Mobility CMS 0-100%: 43.83 CMS G Code Modifier for Basic Mobility: CK GOALS: Goal Formulation: With Patient Time For Goal Achievement: 5 days Pt Will Go Supine To/From Sit: Independently Pt Will Transfer Bed/Chair: Independently Pt Will Transfer Sit to Stand: Independently Pt Will Ambulate: 101-150 Feet, w/ No Device, w/ Stand By Assist PLAN: Treatment Interventions: Mobility Training;Endurance Training Plan Frequency: 5 Days per Week PT Plan for Next Visit: Progress balance training, progress ambulation tolerance. RECOMMENDATIONS: PT Discharge Recommendations: Home with Assistance;and;Home Health Setting; versus;Outpatient Therapy Setting Equipment Recommendations: None (anticipate none) Recommend ongoing assistance for: In and out of house;Safety concerns Therapist: Regi Ross PT Date: 04/08/2018 * Ximena Bhardwaj MD - 04/08/2018 8:59 AM CDT Cardiology Progress Note Today's Date: 04/08/2018 Name: Lucrecia Fields Admission Date: 03/25/2018 LOS: 14 days Assessment/Plan: arrhythmia Principal Problem: Atrial fibrillation with rapid ventricular response (HCC) Active Problems: Type 2 diabetes mellitus with circulatory disorder, without long-term 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 (HCC) PAF (paroxysmal atrial fibrillation) (HCC) Chronic gastrointestinal bleeding Transfusion-dependent anemia CAD (coronary artery disease), [place] coronary artery HLD (hyperlipidemia) Hypothyroidism DELROY (acute kidney injury) (HCC) Essential hypertension Pleural effusion on left Left leg cellulitis Long's esophagus Acute on chronic diastolic heart failure due to coronary artery disease (HCC) Lucrecia Fieldsis a 62 y.o.female, the patienthas a past medical history of Acquired hypothyroidism; Arthritis; Back pain; Bleeding disorder (HCC); Coronary artery disease; Diabetes mellitus (HCC); Hypertension; Stomach disorder ; and Vision decreased.presenting with shortness of breath, dizziness/ lightheadedness, chills, nausea, lower extremity swelling and palpitations. 1. 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 Shortness of Breath/Lower extremity swelling, volume overload Acute on Chronic Hypercapneic Respiratory Failure (Resolved) Acute metabolic Encephalopathy secondary to Hypercapnea (Resolved) - LLE swelling greater than right since surgery - has history of DVT - BNP 327 on admission - Daily CXR with persistent left sided pleural effusion - IR drain and Chest tube on left side (removed 03/31) - OPxygen requirement titrated down, on room air 04/05/2018 - Lasix drip d/c 04/05 - tranistion to IV Bolus Plan for today: >40mg PO Torsemide today > Will plan for Torsemide 40mg PO QD at home > Daily Weight, accurate I/O needed 3. Hematochezia Hx Gastric Antral Vascular Ectasia\\ Congestive colopathy Diverticulosis in sigmoid colon - Patient had occurrence of bright red blood coated bowel movement - Known history of GAVE requiring motnhly transfusion in the past - Hemoglobin stable through event: 8.0 --> 8.2 --> 8.3 - GI Consulted: Ddx includes Hemorrhoidal bleeding, diverticular bleeding, colonic AVM, ischemic colitis, bleeding colonicpolyp, small bowel etiology such as small bowel AVM or polyp - Colonoscopy 04/07: Poor preparation, ileum normal, erythematous mucosa in ascending colon and in cecum, probably congestive colopathy; one 5mm polyp in the transverse colon; Erythematous flat lesion in transverse colon; Diverticulosis In the sigmoid colon, Non-bleeding external hemorrhoids. Plan: - Gi recommends repeat colonoscopy at future appointment - TODD today for evaluation of atrial appendage; will aid in discussion for future anticoagulation - Hemorrhoid Cream ordered 4. Acute kidney injury, improving -FE urea 8.4%, consistent with prerenal etiology on admission -Improving with diuresis, consistent with cardiorenal syndrome -Renal ultrasound unremarkable -Urine eosinophils negative Plan: >Avoid nephrotoxic medications >Nephrology consulted - recommend continued diuresis >Continue Diuresis w/ Iv Bolus Lasix 5. CAD s/p CABG 02/16/18 - no chest pain, surgical scar well healing - trop/EKG negative for ischemia on admission Plan for today: >Continue ASA, BB > monitor 6. 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 Hypothyroidism > Continue Synthroid 8. HLD > Continue YARD WORKER statin 9. HTN > Continue metoprolol 10. DMII tomorrow - YARD WORKER regimen: NPH 18u QD, Novolog 4u TID w/ meals > Continue YARD WORKER NPH, MDCF Fluids, electrolytes and Nutrition: IVF:no IVF Electrolytes:Monitor and replace PRN. Diet:NPO for TODD today Ppx: DVT:SCD Stress ulcer:PPI Code status: Full Code Disposition:TODD in the afternoon today; discharge pending results of TODD and need for further intervention Patient has been seen and discussed with Dr. Hector __ Subjective: Lucrecia Fields is a 62 y.o. female. She slept well overnight and is anxious to continue treatment so she can return home. We discussed the need for future colonscopy and she understands. She reports only minimal bloo din her stools last night and this morning, and mentions the hemorrhoid cream has helped. The team explained the need for TODD to evaluate her atria and see if there is a need for further anticoagulation, and then she should be able to go home, pending those results. She understands. ROS: + hematochezia + LE swelling, negative chest pain, SOB, abdominal pain, diarrhea, constipation, nausea vomiting Objective: Medications: Scheduled Meds: aspirin chewable tablet 81 mg 81 mg Oral QDAY cetirizine (ZYRTEC) tablet 10 mg 10 mg Oral QAM8 diltiazem CD (cardIZEM CD) capsule 180 mg 180 mg Oral QDAY folic acid (FOLVITE) tablet 1 mg 1 mg Oral QDAY insulin aspart U-100 (NOVOLOG FLEXPEN) injection PEN 0-14 Units 0-14 Units Subcutaneous ACHS insulin NPH (HUMULIN N KwikPen) injection PEN 18 Units 18 Units Subcutaneous QDAY(07) levothyroxine (SYNTHROID) tablet 175 mcg 175 mcg Oral QDAY 30 min before breakfast magnesium oxide (MAG-OX) tablet 400 mg 400 mg Oral BID melatonin tablet 5 mg 5 mg Oral QHS metoprolol tartrate (LOPRESSOR) tablet 100 mg 100 mg Oral BID nystatin (NYSTOP) topical powder Topical BID pantoprazole DR (PROTONIX) tablet 80 mg 80 mg Oral QDAY(21) rosuvastatin (CRESTOR) tablet 40 mg 40 mg Oral QDAY senna/docusate (SENOKOT-S) tablet 2 tablet 2 tablet Oral BID torsemide(+) (DEMADEX) tablet 40 mg 40 mg Oral QDAY Continuous Infusions: PRN and Respiratory Meds:acetaminophen Q6H PRN, hydrOXYzine TID PRN, nitroglycerin Q5 MIN PRN, ondansetron Q8H PRN, pramoxine/zinc oxide QDAY PRN, traMADol Q6H PRN Vital Signs: Last Filed Vital Signs: 24 Hour Range BP: 120/49 (04/08 838) Temp: 36.4 C (97.5 F) (04/08 838) Pulse: 95 (04/08 838) Respirations: 18 PER MINUTE (04/08 838) SpO2: 93 % (04/08 838) O2 Delivery: None (Room Air) (04/08 838) SpO2 Pulse: 86 (04/07 1325) BP: (116-130)/(45-78) Temp: [36.3 C (97.4 F)-36.7 C (98.1 F)] Pulse: [81-95] Respirations: [14 PER MINUTE-23 PER MINUTE] SpO2: [84 %-97 %] O2 Delivery: None (Room Air) Intensity Pain Scale (Self Report): 7 Verbal Pain Description: Mild Pain Vitals: 04/04/18 0400 04/05/18 0305 04/06/18 0510 Weight: 110.5 kg (243 lb 9.6 oz) 108 kg (238 lb) 106.4 kg (234 lb 9.6 oz) Intake/Output Summary: (Last 24 hours) Intake/Output Summary (Last 24 hours) at 04/08/18 0859 Last data filed at 04/08/18 0722 Gross per 24 hour Intake 1100 ml Output 250 ml Net 850 ml Physical Exam: General: alert and oriented Eyes: Conjunctivae/corneas clear. EOMI bilaterally, no conjunctival injection Neck: JVD at 7cmH20 present Lungs: Mild crackles in lower lung jennings, otherwise clear throughout Heart: Regular rhythm, tachycardic, S1, S2 normal, no appreciable murmur Abdomen: Soft, non-tender. Bowel sounds normal. No masses. No organomegaly. Extremities: Bilateral lower extremities. 2+ pitting edema bilaterally, mildly worse on the left side, there is a scar assumably where the vein graft was harvested, erythema improved, without any purulence noted Skin: Scar on left leg from saphenous vein graft without purulence, there is erythema, warmth is equal bilaterally Neurologic: CNII - XII intact. Normal strength, sensation and reflexes throughout. Psych: normal mood and affect Laboratory Review: 24-hour labs: Results for orders placed or performed during the hospital encounter of (from the past 24 hour(s)) POC GLUCOSE Collection Time: 04/07/18 2:29 PM Result Value Ref Range Glucose, POC 141 (H) 70 - 100 MG/DL POC GLUCOSE Collection Time: 04/07/18 5:59 PM Result Value Ref Range Glucose, POC 261 (H) 70 - 100 MG/DL POC GLUCOSE Collection Time: 04/07/18 9:00 PM Result Value Ref Range Glucose, POC 157 (H) 70 - 100 MG/DL PROTIME INR (PT) Collection Time: 04/08/18 5:00 AM Result Value Ref Range INR 1.6 (H) 0.8 - 1.2 CBC Collection Time: 04/08/18 5:00 AM Result Value Ref Range White Blood Cells 4.4 (L) 4.5 - 11.0 K/UL RBC 2.59 (L) 4.0 - 5.0 M/UL Hemoglobin 8.1 (L) 12.0 - 15.0 GM/DL Hematocrit 25.0 (L) 36 - 45 % MCV 96.6 80 - 100 FL MCH 31.4 26 - 34 PG MCHC 32.5 32.0 - 36.0 G/DL RDW 17.8 (H) 11 - 15 % Platelet Count 129 (L) 150 - 400 K/UL MPV 8.8 7 - 11 FL BASIC METABOLIC PANEL Collection Time: 04/08/18 5:00 AM Result Value Ref Range Sodium 136 (L) 137 - 147 MMOL/L Potassium 4.2 3.5 - 5.1 MMOL/L Chloride 93 (L) 98 - 110 MMOL/L CO2 36 (H) 21 - 30 MMOL/L Anion Gap 7 3 - 12 Glucose 135 (H) 70 - 100 MG/DL Blood Urea Nitrogen 32 (H) 7 - 25 MG/DL Creatinine 1.44 (H) 0.4 - 1.00 MG/DL Calcium 9.4 8.5 - 10.6 MG/DL eGFR Non 37 (L) >60 mL/min eGFR 45 (L) >60 mL/min PTT (APTT) Collection Time: 04/08/18 5:00 AM Result Value Ref Range APTT 30.2 20.0 - 36.0 SEC MAGNESIUM Collection Time: 04/08/18 5:00 AM Result Value Ref Range Magnesium 2.3 1.6 - 2.6 mg/dL Point of Care Testing: (Last 24 hours): Glucose: (!) 135 (04/08/18 0500) POC Glucose (Download): (!) 157 (04/07/18 2100) Cardiographics: No new Other Radiology/Diagnostics Review: Pertinent radiology reviewed. XIMENA BHARDWAJ MD Pager [phone] Associated attestation - Felisa Hector MD - 04/08/2018 8:56 PM CDT CARDIOLOGY STAFF NOTE Ms. Fields tolerated TODD today which was notable for some small residual flow in her left atrial appendage, unsuccessful ligation having occurred at the time of her CABG. Her hgb is stable off all anticoagulation. I have discussed the risks and benefits of resuming anticoagulation in the setting of recurrent GI bleeding from multiple sources. We appreciate GI team conversations with her as well and offering their perspective. She understands the stroke risk she carries with residual flow in the SETH but has opted not to resume anticoagulation for now. We will of course revisit this on an as needed basis going forward. She can be discharged today and will follow with me in clinic. ATTESTATION I personally performed the dempsey portions of the E/M visit, discussed the case with the resident, and concur with the resident's documentation of history, physical exam, assessment, and treatment plan unless otherwise noted. Greater than 30 min were spent coordinating discharge and answering patient questions today. Staff moderate needs teacher: Felisa Hector MD, PhD Date: 04/08/2018 * Reilly Olivera - 04/07/2018 6:38 PM CDT Renal Progress Note Name: Lucrecia Fields Today's Date: 04/07/2018 Admission Date: 03/25/2018 LOS: 13 days Assessment and Plan Principal Problem: Atrial fibrillation with rapid ventricular response (HCC) Active Problems: Type 2 diabetes mellitus with circulatory disorder, without long-term 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 (HCC) PAF (paroxysmal atrial fibrillation) (HCC) Chronic gastrointestinal bleeding Transfusion-dependent anemia CAD (coronary artery disease), [place] coronary artery HLD (hyperlipidemia) Hypothyroidism DELROY (acute kidney injury) (HCC) Essential hypertension Pleural effusion on left Left leg cellulitis Long's esophagus Acute on chronic diastolic heart failure due to coronary artery disease (HCC) Lucrecia Fields is a 62 y.o. female s/p CABG admitted for dyspnea and volume overload. DELROY -no significant CKD -renal ultrasound without hydronephrosis -no recent nephrotoxins -creatinine progressively increasing -I&O appear inaccurate -FeUrea 8% suggesting renal hypoperfusion Atrial flutter Leukocytosis CAD s/p CABG Anemia HTN Hyponatremia, hypervolemic Encephalopathy, likely related to hypercapnea Recommendations: -renal function at baseline -continue to hold diuretics -please call with questions or concerns Reilly Olivera MD PGY-5 Nephrology Fellow Pager [phone] Subjective Lucrecia Fields is a 62 y.o. female endoscopy today, renal function stable, no events overnight, patient would very much like to discharge, she has been inpatient for almost 2 weeks. Medications Medications MEDS aspirin 81 mg Oral QDAY cetirizine 10 mg Oral QAM8 diltiazem CD 180 mg Oral QDAY folic acid 1 mg Oral QDAY insulin aspart U-100 0-14 Units Subcutaneous ACHS insulin NPH 18 Units Subcutaneous QDAY(07) levothyroxine 175 mcg Oral QDAY 30 min before breakfast magnesium citrate 296 mL Oral ONCE magnesium oxide 400 mg Oral BID melatonin 5 mg Oral QHS metoprolol tartrate 100 mg Oral BID nystatin Topical BID pantoprazole DR 80 mg Oral QDAY(21) rosuvastatin 40 mg Oral QDAY senna/docusate 2 tablet Oral BID sucralfate 1 g Oral QID IV MEDS Prn acetaminophen Q6H PRN 650 mg at 04/03/181813, dexamethasone (DECADRON) IV Once PRN, fentaNYL citrate PF Q5 MIN PRN, hydrOXYzine TID PRN 25 mg at 5, nitroglycerin Q5 MIN PRN, ondansetron Q8H PRN 8 mg at 04/05/18 1943 , pramoxine/zinc oxide QDAY PRN, traMADol Q6H PRN 50 mg at 04/05/18 1541 Physical Exam Vital Signs: Last Filed In 24 Hours Vital Signs: 24 Hour Range BP: 123/45 (04/07 1613) Temp: 36.3 C (97.4 F) (04/07 1613) Pulse: 93 (04/07 161) Respirations: 16 PER MINUTE (04/07 161) SpO2: 96 % (04/07 1613) O2 Delivery: None (Room Air) (04/07 161) SpO2 Pulse: 86 (04/07 1325) BP: (115-134)/(43-78) Temp: [36.3 C (97.4 F)-36.6 C (97.9 F)] Pulse: [80-94] Respirations: [14 PER MINUTE-23 PER MINUTE] SpO2: [90 %-97 %] O2 Delivery: None (Room Air) Intensity Pain Scale (Self Report): 8 (04/07/18 1101) Intake/Output Summary (Last 24 hours) at 04/07/18 1838 Last data filed at 04/07/18 1414 Gross per 24 hour Intake 540 ml Output 200 ml Net 340 ml Vitals: 04/04/18 0400 04/05/18 0305 04/06/18 0510 Weight: 110.5 kg (243 lb 9.6 oz) 108 kg (238 lb) 106.4 kg (234 lb 9.6 oz) Gen: drowsy, mild respiratory distress HEENT: Sclera normal; MMM CV:no JVD, regular rhythm Pulm: Clear to Auscultation bilateral, diminished GI: BS+ x4, non-tender to palpation Neuro: drowsy, moving all ext Ext: trace ble edema, no clubbing or cyanosis Skin: no rash, dry Labs: Recent Labs 04/05/184 04/06/18 0300 04/07/18 042 NA 137 135* 137 K 3.4* 4.3 4.3 CL 95* 95* 93* CO2 35* 34* 37* GAP 7 6 7 BUN 44* 38* 34* CR 1.28* 1.38* 1.32* GLU 172* 145* 129* CA 9.3 9.6 10.1 MG 1.9 2.0 2.3 Recent Labs 04/05/18 0424 04/05/18 1410 04/05/18 2148 04/06/18 03004/07/18 042 WBC 4.3* 4.7 5.3 4.5 4.4* HGB 8.0* 8.2* 8.3* 8.2* 9.1* HCT 24.9* 25.2* 25.7* 24.8* 27.5* PLTCT 128* 139* 145* 132* 130* INR 1.5* -- -- 1.6* 1.6* PTT 111.3* 96.5* -- 20.4 29.1 Estimated Creatinine Clearance: 53.9 mL/min (A) (based on SCr of 1.32 mg/dL (H)) . Vitals: 04/04/18 0400 04/05/18 0305 04/06/18 0510 Weight: 110.5 kg (243 lb 9.6 oz) 108 kg (238 lb) 106.4 kg (234 lb 9.6 oz) No results for input(s): PHART, PO2ART in the last 72 hours. Invalid input(s): PC02A Associated attestation - Alyx Noland MBBS - 04/07/2018 8:07 PM CDT ATTESTATION I personally performed the history and the physical examination of the patient and discussed his management with the fellow (resident). I reviewed the fellow' s (residents) note and agree with the documented findings and plan of care. Staff name: Ahmad MMarylou Noland Date: 04/07/2018 * Linda Joya - 04/07/2018 3:11 PM CDT OCCUPATIONAL THERAPY NO TREATMENT NOTE The patient was not seen due to: Patient not available - patient off unit for colonoscopy. Attempted in the afternoon but patient declined to participate despite encouragement or education. Occupational therapy will continue to follow and provide intervention as indicated. Therapist: Linda Joya OTR/L [id number] Date: 04/07/2018 * Pieter Bryant RN - 04/07/2018 1:17 PM CDT Colon/Lower EUS/Retrograde Enteroscopy Post Lower Endoscopy Instructions -If you feel feverish, have a temperature of 101 degrees or higher, persistent nausea and vomiting, abdominal pain or dark stools; please notify your nurse or GI physician. -You may have abdominal cramping following the procedure this can be relieved by belching or passing air. -If you have redness or swelling at the IV site, place a warm, wet washcloth over the affected areas for 15 minutes, 3-4 times a day until the redness subsides. If symptoms continue for 2-3 days, contact your regular physician. - If you have bleeding from your bowels over 2 tablespoons and increasing, please notify your physician. A small amount of bleeding is normal if a biopsy or polyps were taken. - You may resume all your routine medications, if medications need to be held your physician and/or nurse will notify you post procedure. SPECIFIC INSTRUCTIONS INPATIENTS: Ask for help when you get up in your room, as you may still be drowsy from your sedation. OUTPATIENTS: A. Because of sedation and lack of coordination, UNTIL TOMORROW, DO NOT: 1. Operate any motorized vehicle - this includes driving. 2. Sign any legal documents or conduct important business matters. 3. Use any dangerous machinery (chain saw, lawnmower, etc.). 4. Drink any alcoholic beverages. Should you have any questions or concerns after your procedure please call [phone] M-F 8am-5:00 pm. After 5:00 pm, holidays or weekends call [phone] and ask for the GI Doctor masonry contractor. * Yobany Ching, RT - 04/07/2018 9:33 AM CDT RT Adult Assessment Note NAME:Lucrecia Fields :1955 AGE: 62 y.o. ADMISSION DATE: 03/25/2018 DAYS ADMITTED: LOS: 13 days RT Treatment Plan: Protocol Plan: Procedures PEP Therapy: Place a nursing order for "IS Q1h While Awake" for any of Lung Expansion indicators PAP: Place a nursing order for "IS Q1h While Awake" for any of Lung Expansion indicators IPPB: Place a nursing order for "IS Q1h While Awake" for any of Lung Expansion indicators Oxygen/Humidity: O2 to keep SpO2 > 92% Monitoring: Pulse oximetry BID & PRN Vital Signs: Pulse: Pulse: 88 RR: Respirations: 18 PER MINUTE SpO2: SpO2: 94 % O2 Device: Liter Flow: O2%: O2 Percent: 21 % Breath Sounds: All Breath Sounds: Clear (implies normal);Decreased Respiratory Effort: * Peter Pulido MD - 04/07/2018 6:49 AM CDT Cardiology Progress Note Today's Date: 04/07/2018 Name: Lucrecia Fields Admission Date: 03/25/2018 LOS: 13 days Assessment/Plan: arrhythmia Principal Problem: Atrial fibrillation with rapid ventricular response (HCC) Active Problems: Type 2 diabetes mellitus with circulatory disorder, without long-term 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 (HCC) PAF (paroxysmal atrial fibrillation) (HCC) Chronic gastrointestinal bleeding Transfusion-dependent anemia CAD (coronary artery disease), [place] coronary artery HLD (hyperlipidemia) Hypothyroidism DELROY (acute kidney injury) (HCC) Essential hypertension Pleural effusion on left Left leg cellulitis Long's esophagus Acute on chronic diastolic heart failure due to coronary artery disease (HCC) Lucrecia Fieldsis a 62 y.o.female, the patienthas a past medical history of Acquired hypothyroidism; Arthritis; Back pain; Bleeding disorder (HCC); Coronary artery disease; Diabetes mellitus (HCC); Hypertension; Stomach disorder ; and Vision decreased.presenting with shortness of breath, dizziness/ lightheadedness, chills, nausea, lower extremity swelling and palpitations. 1. Atrial flutter, not on AC - has had intermittent atrial flutter since CABG - not on AC due to history of GIB ( Gastric Antral Vascular Ectasia) - has had palpitations for about 1 week prior to presentation, no chest pain or syncope - EKG on admission: atrial fibrillation, rate 98, no ST changes - GI and CTS consulted to discuss effusion and AC in setting of bleeding history - EGD showing 3 columns of esophageal varices, mild portal hypertensive gastropathy without bleeding, GAVE without bleeding and gastric antrum, and possible Long's esophagus, no biopsies taken - Rates controlled on diltiazem and metoprolol 100 mg BID Plan for today: >Continue ASA and Metoprolol Tartrate 100mg BID >Diltiazem 180 mg daily >off heparin drip as bridge to warfarin - both being held w/ new onset BRBPR as of 04/05 >warfarin 2.5 mg, monitor INR daily going forward ( 1.6 today) - will restart after colonoscopy 2. Shortness of Breath/Lower extremity swelling, volume overload Acute on Chronic Hypercapneic Respiratory Failure (Resolved) Acute metabolic Encephalopathy secondary to Hypercapnea (Resolved) - LLE swelling greater than right since surgery - has history of DVT - BNP 327 on admission - Daily CXR with persistent left sided pleural effusion - IR drain and Chest tube on left side (removed 03/31) - OPxygen requirement titrated down, on room air 04/05/2018 - Lasix drip d/c 04/05 - tranistion to Iv Bolus Plan for today: >Holding lasix at this time with prep and NPO, will dose daily according to volume status > Will need daily diuresis plan going forward > Daily Weight, accurate I/O needed 3. Hematochezia - Patient had occurrence of bright red blood coated bowel movement - Known history of GAVE requiring motnhly transfusion in the past - Hemoglobin stable through event: 8.0 --> 8.2 --> 8.3 - GI Consulted: Ddx includes Hemorrhoidal bleeding, diverticular bleeding, colonic AVM, ischemic colitis, bleeding colonicpolyp, small bowel etiology such as small bowel AVM or polyp Plan: - Colonoscopy today - will follow results and GI recs - Heparin Drip paused, Warfarin held - Bowel Prepped w/ Magnesium Citrate and Docusate 4. Acute kidney injury, improving -FE urea 8.4%, consistent with prerenal etiology on admission -Improving with diuresis, consistent with cardiorenal syndrome -Renal ultrasound unremarkable -Urine eosinophils negative Plan: >Avoid nephrotoxic medications >Nephrology consulted - recommend continued diuresis >Continue Diuresis w/ Iv Bolus Lasix 5. CAD s/p CABG 02/16/18 - no chest pain, surgical scar well healing - trop/EKG negative for ischemia on admission Plan for today: >Continue ASA, BB > monitor 6. 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 Hypothyroidism > Continue Synthroid 8. HLD > Continue YARD WORKER statin 9. HTN > Continue metoprolol 10. DMII tomorrow - YARD WORKER regimen: NPH 18u QD, Novolog 4u TID w/ meals > Continue YARD WORKER NPH, MDCF Fluids, electrolytes and Nutrition: IVF:no IVF Electrolytes:Monitor and replace PRN. Diet:NPO for Colonscopy today Ppx: DVT:SCD Stress ulcer:PPI Code status: Full Code Disposition:contiue on CV1, continue diuresis going forward. Plan for Colonoscopy in AM Patient has been seen and discussed with Dr. Hector __ Subjective: Lucrecia Fields is a 62 y.o. female. Overnight she completed only partial prep. Has had recurrent bloody bowel movements. She reports being anxious this morning. She denies any shortness of breath, lightheadedness, dizziness endorses some epigastric pain. Still amenable to having colonoscopy done. Objective: Medications: Scheduled Meds: aspirin chewable tablet 81 mg 81 mg Oral QDAY cetirizine (ZYRTEC) tablet 10 mg 10 mg Oral QAM8 diltiazem CD (cardIZEM CD) capsule 180 mg 180 mg Oral QDAY folic acid (FOLVITE) tablet 1 mg 1 mg Oral QDAY insulin aspart U-100 (NOVOLOG FLEXPEN) injection PEN 0-14 Units 0-14 Units Subcutaneous ACHS insulin NPH (HUMULIN N KwikPen) injection PEN 18 Units 18 Units Subcutaneous QDAY(07) levothyroxine (SYNTHROID) tablet 175 mcg 175 mcg Oral QDAY 30 min before breakfast magnesium citrate oral solution 296 mL 296 mL Oral ONCE magnesium oxide (MAG-OX) tablet 400 mg 400 mg Oral BID melatonin tablet 5 mg 5 mg Oral QHS metoprolol tartrate (LOPRESSOR) tablet 100 mg 100 mg Oral BID nystatin (NYSTOP) topical powder Topical BID pantoprazole DR (PROTONIX) tablet 80 mg 80 mg Oral QDAY() rosuvastatin (CRESTOR) tablet 40 mg 40 mg Oral QDAY senna/docusate (SENOKOT-S) tablet 2 tablet 2 tablet Oral BID sucralfate (CARAFATE) tablet 1 g 1 g Oral QID Continuous Infusions: PRN and Respiratory Meds:acetaminophen Q6H PRN, hydrOXYzine TID PRN, nitroglycerin Q5 MIN PRN, ondansetron Q8H PRN, traMADol Q6H PRN Vital Signs: Last Filed Vital Signs: 24 Hour Range BP: 115/43 (04/07 415) Temp: 36.6 C (97.8 F) (04/07 415) Pulse: 93 (04/07 415) Respirations: 16 PER MINUTE (04/07 415) SpO2: 90 % (04/07 415) O2 Delivery: None (Room Air) (04/07 415) BP: (115-134)/(43-60) Temp: [36.3 C (97.4 F)-36.6 C (97.9 F)] Pulse: [77-93] Respirations: [14 PER MINUTE-18 PER MINUTE] SpO2: [90 %-96 %] O2 Delivery: None (Room Air) Intensity Pain Scale (Self Report): 6 Verbal Pain Description: Mild Pain Vitals: 04/04/18 0400 04/05/18 0305 04/06/18 0510 Weight: 110.5 kg (243 lb 9.6 oz) 108 kg (238 lb) 106.4 kg (234 lb 9.6 oz) Intake/Output Summary: (Last 24 hours) Intake/Output Summary (Last 24 hours) at 04/07/18 0649 Last data filed at 04/07/18 0415 Gross per 24 hour Intake 740 ml Output 1200 ml Net -460 ml Physical Exam: General: alert and oriented Eyes: Conjunctivae/corneas clear. EOMI bilaterally, no conjunctival injection Neck: JVD at 6cm present Lungs: Mild crackles in lower lung jennings, otherwise clear throughout Heart: Regular rhythm, tachycardic, S1, S2 normal, no appreciable murmur Abdomen: Soft, non-tender. Bowel sounds normal. No masses. No organomegaly. Extremities: Bilateral lower extremities. 2+ pitting edema bilaterally, mildly worse on the left side, there is a scar assumably where the vein graft was harvested, erythema improved, without any purulence noted Skin: Scar on left leg from saphenous vein graft without purulence, there is erythema, warmth is equal bilaterally Neurologic: CNII - XII intact. Normal strength, sensation and reflexes throughout. Psych: normal mood and affect Laboratory Review: 24-hour labs: Results for orders placed or performed during the hospital encounter of (from the past 24 hour(s)) POC GLUCOSE Collection Time: 04/06/18 6:04 PM Result Value Ref Range Glucose, POC 273 (H) 70 - 100 MG/DL POC GLUCOSE Collection Time: 04/06/18 9:06 PM Result Value Ref Range Glucose, POC 165 (H) 70 - 100 MG/DL PROTIME INR (PT) Collection Time: 04/07/18 4:25 AM Result Value Ref Range INR 1.6 (H) 0.8 - 1.2 CBC Collection Time: 04/07/18 4:25 AM Result Value Ref Range White Blood Cells 4.4 (L) 4.5 - 11.0 K/UL RBC 2.86 (L) 4.0 - 5.0 M/UL Hemoglobin 9.1 (L) 12.0 - 15.0 GM/DL Hematocrit 27.5 (L) 36 - 45 % MCV 96.0 80 - 100 FL MCH 32.0 26 - 34 PG MCHC 33.3 32.0 - 36.0 G/DL RDW 18.2 (H) 11 - 15 % Platelet Count 130 (L) 150 - 400 K/UL MPV 8.6 7 - 11 FL BASIC METABOLIC PANEL Collection Time: 04/07/18 4:25 AM Result Value Ref Range Sodium 137 137 - 147 MMOL/L Potassium 4.3 3.5 - 5.1 MMOL/L Chloride 93 (L) 98 - 110 MMOL/L CO2 37 (H) 21 - 30 MMOL/L Anion Gap 7 3 - 12 Glucose 129 (H) 70 - 100 MG/DL Blood Urea Nitrogen 34 (H) 7 - 25 MG/DL Creatinine 1.32 (H) 0.4 - 1.00 MG/DL Calcium 10.1 8.5 - 10.6 MG/DL eGFR Non 41 (L) >60 mL/min eGFR 50 (L) >60 mL/min PTT (APTT) Collection Time: 04/07/18 4:25 AM Result Value Ref Range APTT 29.1 20.0 - 36.0 SEC MAGNESIUM Collection Time: 04/07/18 4:25 AM Result Value Ref Range Magnesium 2.3 1.6 - 2.6 mg/dL POC GLUCOSE Collection Time: 04/07/18 7:56 AM Result Value Ref Range Glucose, POC 133 (H) 70 - 100 MG/DL Point of Care Testing: (Last 24 hours): Glucose: (!) 129 (04/07/18 1503) POC Glucose (Download): (!) 165 (04/06/18 6485) Cardiographics: No new Other Radiology/Diagnostics Review: Pertinent radiology reviewed. Peter Pulido MD Pager [phone] Associated attestation - Felisa Hector MD - 04/07/2018 9:02 PM CDT CARDIOLOGY STAFF NOTE Colonoscopy results noted, will need to be redone in outpatient setting due to poor prep. We will continue to hold anticoagulation for now. ATTESTATION I personally performed the dempsey portions of the E/M visit, discussed the case with the resident, and concur with the resident's documentation of history, physical exam, assessment, and treatment plan unless otherwise noted. Staff moderate needs teacher: Felisa Hector MD, PhD Date: 04/07/2018 * Sri Garcia - 04/07/2018 1:01 AM CDT CV1 notified that pt has only had 2 bm this shift and stated she would not be doing anymore of her bowel prep. Pt's stools have still been loose, bloody with some feces. Pt stated she did not like the taste and her bottom was hurting. Pt given barrier cream for bottom. Team stated they would pass along to day shift. Pt has mag citrate ordered for the morning. Will attempt to administer to patient. Also notified resident that pt was requesting additional medication for sleep. Pt given atarax and melatonin. No new orders at this time. Will continue to monitor. * Erika Myers RN - 04/06/2018 6:22 PM CDT Administered mag citrate. * Eyad Feldman RT - 04/06/2018 2:18 PM CDT RT Adult Assessment Note NAME:Lucrecia Fields :1955 AGE: 62 y.o. ADMISSION DATE: 03/25/2018 DAYS ADMITTED: LOS: 12 days RT Treatment Plan: Protocol Plan: Procedures PEP Therapy: Place a nursing order for "IS Q1h While Awake" for any of Lung Expansion indicators PAP: Q4h PAP While Awake Oxygen/Humidity: O2 to keep SpO2 > 92% Monitoring: Pulse oximetry BID & PRN Additional Comments: Impressions of the patient: poor IS effort. Continue EzPAP lung expansion. Vital Signs: Pulse: Pulse: 77 RR: Respirations: 17 PER MINUTE SpO2: SpO2: 93 % O2 Device: $$ O2 Device: (S) Standby Liter Flow: O2 Liter Flow: (RA) O2%: Breath Sounds: Respiratory Effort: Respiratory Effort: Non-Labored * Regi Ross, PT - 04/06/2018 1:42 PM CDT PHYSICAL THERAPY NOTE Patient declined to participate despite encouragement and education about the role and benefits of physical therapy. Patient sleeping upon PT arrival. Patient difficult to keep awake but declines mobility at this time due to scheduled colonoscopy this afternoon. Physical therapy will continue to follow and provide intervention as indicated. Therapist: Regi Ross, PT Date: 04/06/2018 * Reilly Olivera - 04/06/2018 1:18 PM CDT Renal Progress Note Name: Lucrecia Fields Today's Date: 04/06/2018 Admission Date: 03/25/2018 LOS: 12 days Assessment and Plan Principal Problem: Atrial fibrillation with rapid ventricular response (HCC) Active Problems: Type 2 diabetes mellitus with circulatory disorder, without long-term 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 (HCC) PAF (paroxysmal atrial fibrillation) ([facility]) Chronic gastrointestinal bleeding Transfusion-dependent anemia CAD (coronary artery disease), [place] coronary artery HLD (hyperlipidemia) Hypothyroidism DELROY (acute kidney injury) (HCC) Essential hypertension Pleural effusion on left Left leg cellulitis Long's esophagus Acute on chronic diastolic heart failure due to coronary artery disease (HCC) Lucrecia Fields is a 62 y.o. female s/p CABG admitted for dyspnea and volume overload. DELROY -no significant CKD -renal ultrasound without hydronephrosis -no recent nephrotoxins -creatinine progressively increasing -I&O appear inaccurate -FeUrea 8% suggesting renal hypoperfusion Atrial flutter Leukocytosis CAD s/p CABG Anemia HTN Hyponatremia, hypervolemic Encephalopathy, likely related to hypercapnea Recommendations: -renal function at baseline -monitor I&O, diuretics to keep I&O balacnced -strict I&O, standing daily wieght -please call with questions or concerns Reilly Olivera MD PGY-5 Nephrology Fellow Pager [phone] Subjective Lucrecia Fields is a 62 y.o. female GI consulted yesterday, planning for colonoscopy today, creatinine stable. Medications Medications MEDS aspirin 81 mg Oral QDAY cetirizine 10 mg Oral QAM8 diltiazem CD 180 mg Oral QDAY folic acid 1 mg Oral QDAY heparin (porcine) 20-40 Units/kg Intravenous As Prescribed insulin aspart U-100 0-14 Units Subcutaneous ACHS insulin NPH 18 Units Subcutaneous QDAY(07) levothyroxine 175 mcg Oral QDAY 30 min before breakfast magnesium oxide 400 mg Oral BID melatonin 5 mg Oral QHS metoprolol tartrate 100 mg Oral BID nystatin Topical BID pantoprazole DR 80 mg Oral QDAY(21) rosuvastatin 40 mg Oral QDAY senna/docusate 2 tablet Oral BID sucralfate 1 g Oral QID warfarin 2.5 mg Oral QHS IV MEDS heparin (porcine) 20,000 Units in dextrose 5% (D5W) 250 mL IV infusion (dbl conc) Stopped (04/05/18 1432) Prn acetaminophen Q6H PRN 650 mg at 04/03/18 1814, hydrOXYzine TID PRN 25 mg at 04/06/18 0558, nitroglycerin Q5 MIN PRN, ondansetron Q8H PRN 8 mg at 1943, traMADol Q6H PRN 50 mg at 04/05/18 1541, warfarin QHS 2.5 mg at 2011 AND warfarin, pharmacy to manage Per Pharmacy Physical Exam Vital Signs: Last Filed In 24 Hours Vital Signs: 24 Hour Range BP: 119/56 (04/06 1156) Temp: 36.3 C (97.4 F) (04/06 1156) Pulse: 83 (04/06 1156) Respirations: 18 PER MINUTE (04/06 1156) SpO2: 95 % (04/06 1156) O2 Delivery: Nasal Cannula (04/06 1156) BP: (103-134)/(42-76) Temp: [36.1 C (97 F)-36.9 C (98.4 F)] Pulse: [80-103] Respirations: [14 PER MINUTE-18 PER MINUTE] SpO2: [86 %-97 %] O2 Delivery: Nasal Cannula Intensity Pain Scale (Self Report): 6 (04/05/18 2100) Intake/Output Summary (Last 24 hours) at 04/06/18 1318 Last data filed at 04/06/18 1203 Gross per 24 hour Intake 450 ml Output 1900 ml Net -1450 ml Vitals: 04/04/18 0400 04/05/18 0305 04/06/18 0510 Weight: 110.5 kg (243 lb 9.6 oz) 108 kg (238 lb) 106.4 kg (234 lb 9.6 oz) Gen: drowsy, mild respiratory distress HEENT: Sclera normal; MMM CV:no JVD, regular rhythm Pulm: Clear to Auscultation bilateral, diminished GI: BS+ x4, non-tender to palpation Neuro: drowsy, moving all ext Ext: trace ble edema, no clubbing or cyanosis Skin: no rash, dry Labs: Recent Labs 04/04/1843304/05/1842304/06/18 0300 NA 137 137 135* K 3.4* 3.4* 4.3 CL 98 95* 95* CO2 33* 35* 34* GAP 6 7 6 BUN 50* 44* 38* CR 1.50* 1.28* 1.38* GLU 133* 172* 145* CA 9.4 9.3 9.6 MG 1.7 1.9 2.0 Recent Labs 04/03/18201004/04/1843304/05/1842304/05/18 1410 04/05/18 2148 04/06/18 0300 WBC -- 4.6 4.3* 4.7 5.3 4.5 HGB 8.1* 8.1* 8.0* 8.2* 8.3* 8.2* HCT 24.1* 24.9* 24.9* 25.2* 25.7* 24.8* PLTCT -- 146* 128* 139* 145* 132* INR -- 1.4* 1.5* -- -- 1.6* PTT -- 105.4* 111.3* 96.5* -- 20.4 Estimated Creatinine Clearance: 51.6 mL/min (A) (based on SCr of 1.38 mg/dL (H)) . Vitals: 04/04/18 0400 04/05/18 0305 04/06/18 0510 Weight: 110.5 kg (243 lb 9.6 oz) 108 kg (238 lb) 106.4 kg (234 lb 9.6 oz) No results for input(s): PHART, PO2ART in the last 72 hours. Invalid input(s): PC02A Associated attestation - Alyx Noland MBBS - 04/07/2018 12:09 AM CDT ATTESTATION I personally performed the history and the physical examination of the patient and discussed his management with the fellow (resident). I reviewed the fellow' s (residents) note and agree with the documented findings and plan of care. Staff name: Alyx Noland Date: 04/06/2018 * Linda Joya - 04/06/2018 11:20 AM CDT OCCUPATIONAL THERAPY NO TREATMENT NOTE The patient was not seen due to: Patient declined despite encouragement or education. Occupational therapy will continue to follow and provide intervention as indicated. Therapist: Linda Joy[place] OTR/L [id number] Date: 04/06/2018 * Ximena Bhardwaj MD - 04/06/2018 6:24 AM CDT General Progress Note Name: Lucrecia Fields Today's Date: 04/06/2018 Admission Date: 03/25/2018 LOS: 12 days Assessment/Plan: Principal Problem: Atrial fibrillation with rapid ventricular response (HCC) Active Problems: Type 2 diabetes mellitus with circulatory disorder, without long-term 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 (HCC) PAF (paroxysmal atrial fibrillation) (HCC) Chronic gastrointestinal bleeding Transfusion-dependent anemia CAD (coronary artery disease), [place] coronary artery HLD (hyperlipidemia) Hypothyroidism DELROY (acute kidney injury) (HCC) Essential hypertension Pleural effusion on left Left leg cellulitis Long's esophagus Acute on chronic diastolic heart failure due to coronary artery disease (HCC) Lucrecia Fieldsis a 62 y.o.female, the patienthas a past medical history of Acquired hypothyroidism; Arthritis; Back pain; Bleeding disorder (HCC); Coronary artery disease; Diabetes mellitus (HCC); Hypertension; Stomach disorder ; and Vision decreased.presenting with shortness of breath, dizziness/ lightheadedness, chills, nausea, lower extremity swelling and palpitations. 1. 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 Shortness of Breath/Lower extremity swelling, volume overload - LLE swelling greater than right since surgery - has history of DVT - BNP 327 on admission - Daily CXR with persistent left sided pleural effusion - IR drain and Chest tube on left side (removed 03/31) - OPxygen requirement titrated down, on room air 04/05/2018 - Lasix drip d/c 04/05 - tranistion to Iv Bolus Plan for today: > Lasix 60 IV given in AM, will dose daily according to volume status > Will need daily diuresis plan going forward > Daily Weight, accurate I/O needed 3. Hematochezia on 04/05 - Patient had one occurrence of bright red blood coated bowel movement in afternoon of 04/05 - Known history of GAVE requiring motnhly transfusion in the past - Hemoglobin stable through event: 8.0 --> 8.2 --> 8.3 - GI Consulted: Ddx includes Hemorrhoidal bleeding, diverticular bleeding, colonic AVM, ischemic colitis, bleeding colonic polyp, small bowel etiology such as small bowel AVM or polyp Plan: - Colonoscopy rescheduled for tomorrow (04/07) based upon incomplete bowel preparation, per GI. Will schedule in AM for 04/07 - Heparin Drip paused, Warfarin held - Bowel Prep w/ Magnesium Citrate and Docusate 4. Acute kidney injury, improving -FE urea 8.4%, consistent with prerenal etiology on admission -Improving with diuresis, consistent with cardiorenal syndrome -Renal ultrasound unremarkable -Urine eosinophils negative Plan: > Avoid nephrotoxic medications > Nephrology consulted - recommend continued diuresis > Continue Diuresis w/ Iv Bolus Lasix 5. Altered mental status, improved -Hypercapnia versus uremia versus infectious -Has been lethargic and confused for the past 3 days now -Wanted to leave AMA multiple times Plan: >AOx3 today w/o abnormality 6. Cellulitis of lower extremity, left, improved - Amoxicillin started on 03/26, end 03/29 - Doxycycline 03/29-04/04 - Completed therapy recommendations per ID Plan: > Monitor going forward 7. CAD s/p CABG 02/16/18 - no chest pain, surgical scar well healing - trop/EKG negative for ischemia on admission Plan for today: >Continue ASA, BB > monitor 8. 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 Hypothyroidism > Continue Synthroid 9. HLD > Continue YARD WORKER statin 10. HTN > Continue metoprolol 10. DMII tomorrow - YARD WORKER regimen: NPH 18u QD, Novolog 4u TID w/ meals > Continue YARD WORKER NPH, MDCF Fluids, electrolytes and Nutrition: IVF:no IVF Electrolytes:Monitor and replace PRN. Diet:NPO for Colonscopy today Ppx: DVT:SCD Stress ulcer:PPI Code status: Full Code Disposition:contiue on CV1, continue diuresis going forward. Plan for Colonoscopy in AM Patient has been seen and discussed with Dr. Naren BHARDWAJ MD Subjective Lucrecia Fields is a 62 y.o. female. lucrecia explained her one large bowel movement with bright red blood yesterday afternoon, which was followed throughout the night with multiple other small bowel movements with speckled blood on them. She is anxious to have the colonscopy performed, and does not enjoy the taste of the prep, nor the required number of bowel movements. Unfortunately, her colonscopy had to be rescheduled for tomorrow morning, and she was not pleased by this. We discussed her continued diuresis and the plan now to have colonoscopy performed in the AM Review of Systems: Denies chest pain, SOB, nausea, vomiting, abdominal pain, diarrhea, constipation. + Anxiety Medications Scheduled Meds: aspirin chewable tablet 81 mg 81 mg Oral QDAY cetirizine (ZYRTEC) tablet 10 mg 10 mg Oral QAM8 diltiazem CD (cardIZEM CD) capsule 180 mg 180 mg Oral QDAY folic acid (FOLVITE) tablet 1 mg 1 mg Oral QDAY furosemide (LASIX) injection 60 mg 60 mg Intravenous ONCE heparin (porcine) injection 2,250-4,500 Units 20-40 Units/kg Intravenous As Prescribed insulin aspart U-100 (NOVOLOG FLEXPEN) injection PEN 0-14 Units 0-14 Units Subcutaneous ACHS insulin NPH (HUMULIN N KwikPen) injection PEN 18 Units 18 Units Subcutaneous QDAY(07) levothyroxine (SYNTHROID) tablet 175 mcg 175 mcg Oral QDAY 30 min before breakfast magnesium oxide (MAG-OX) tablet 400 mg 400 mg Oral BID melatonin tablet 5 mg 5 mg Oral QHS metoprolol tartrate (LOPRESSOR) tablet 100 mg 100 mg Oral BID nystatin (NYSTOP) topical powder Topical BID pantoprazole DR (PROTONIX) tablet 80 mg 80 mg Oral QDAY(21) rosuvastatin (CRESTOR) tablet 40 mg 40 mg Oral QDAY senna/docusate (SENOKOT-S) tablet 2 tablet 2 tablet Oral BID sucralfate (CARAFATE) tablet 1 g 1 g Oral QID warfarin (COUMADIN) tablet 2.5 mg 2.5 mg Oral QHS Continuous Infusions: heparin (porcine) 20,000 Units in dextrose 5% (D5W) 250 mL IV infusion (dbl conc) Stopped (04/05/18 1432) PRN and Respiratory Meds:acetaminophen Q6H PRN, hydrOXYzine TID PRN, nitroglycerin Q5 MIN PRN, ondansetron Q8H PRN, traMADol Q6H PRN, warfarin QHS AND warfarin, pharmacy to manage Per Pharmacy Objective: Vital Signs: Last Filed Vital Signs: 24 Hour Range BP: 109/42 (04/06 230) Temp: 36.6 C (97.9 F) (04/06 230) Pulse: 82 (04/06 230) Respirations: 15 PER MINUTE (04/06 230) SpO2: 97 % (04/06 230) O2 Delivery: Nasal Cannula (04/06 230) BP: (103-143)/(42-78) Temp: [36.1 C (97 F)-36.9 C (98.4 F)] Pulse: [82-103] Respirations: [14 PER MINUTE-17 PER MINUTE] SpO2: [86 %-97 %] O2 Delivery: Nasal Cannula Intensity Pain Scale (Self Report): 6 (04/05/18 2100) Vitals: 04/04/18 0400 04/05/18 0305 04/06/18 0510 Weight: 110.5 kg (243 lb 9.6 oz) 108 kg (238 lb) 106.4 kg (234 lb 9.6 oz) Intake/Output Summary: (Last 24 hours) Intake/Output Summary (Last 24 hours) at 04/06/18 0624 Last data filed at 04/06/18 0611 Gross per 24 hour Intake 1102 ml Output 2050 ml Net -948 ml Stool Occurrence: 1 Physical Exam General: alert and oriented Eyes: Conjunctivae/corneas clear. EOMI bilaterally, no conjunctival injection Neck: JVD at 9cm present. HJR+ Lungs: Mild crackles in lower lung jennings, otherwise clear throughout Heart: Regular rhythm, tachycardic, S1, S2 normal, no appreciable murmur Abdomen: Soft, non-tender. Bowel sounds normal. No masses. No organomegaly. Extremities: Bilateral lower extremities. 2+ pitting edema bilaterally, mildly worse on the left side, there is a scar assumably where the vein graft was harvested, erythema improved, without any purulence noted Skin: Scar on left leg from saphenous vein graft without purulence, there is erythema, warmth is equal bilaterally Neurologic: CNII - XII intact. Normal strength, sensation and reflexes throughout. Psych: normal mood and affect Lab Review 24-hour labs: Results for orders placed or performed during the hospital encounter of (from the past 24 hour(s)) POC GLUCOSE Collection Time: 04/05/18 9:03 AM Result Value Ref Range Glucose, POC 199 (H) 70 - 100 MG/DL POC GLUCOSE Collection Time: 04/05/18 1:48 PM Result Value Ref Range Glucose, POC 160 (H) 70 - 100 MG/DL CBC Collection Time: 04/05/18 2:10 PM Result Value Ref Range White Blood Cells 4.7 4.5 - 11.0 K/UL RBC 2.59 (L) 4.0 - 5.0 M/UL Hemoglobin 8.2 (L) 12.0 - 15.0 GM/DL Hematocrit 25.2 (L) 36 - 45 % MCV 97.1 80 - 100 FL MCH 31.8 26 - 34 PG MCHC 32.7 32.0 - 36.0 G/DL RDW 18.1 (H) 11 - 15 % Platelet Count 139 (L) 150 - 400 K/UL MPV 8.2 7 - 11 FL PTT (APTT) Collection Time: 04/05/18 2:10 PM Result Value Ref Range APTT 96.5 (H) 20.0 - 36.0 SEC POC GLUCOSE Collection Time: 04/05/18 4:17 PM Result Value Ref Range Glucose, POC 186 (H) 70 - 100 MG/DL POC GLUCOSE Collection Time: 04/05/18 9:00 PM Result Value Ref Range Glucose, POC 185 (H) 70 - 100 MG/DL CBC Collection Time: 04/05/18 9:48 PM Result Value Ref Range White Blood Cells 5.3 4.5 - 11.0 K/UL RBC 2.64 (L) 4.0 - 5.0 M/UL Hemoglobin 8.3 (L) 12.0 - 15.0 GM/DL Hematocrit 25.7 (L) 36 - 45 % MCV 97.5 80 - 100 FL MCH 31.2 26 - 34 PG MCHC 32.0 32.0 - 36.0 G/DL RDW 18.4 (H) 11 - 15 % Platelet Count 145 (L) 150 - 400 K/UL MPV 8.0 7 - 11 FL PROTIME INR (PT) Collection Time: 04/06/18 3:00 AM Result Value Ref Range INR 1.6 (H) 0.8 - 1.2 CBC Collection Time: 04/06/18 3:00 AM Result Value Ref Range White Blood Cells 4.5 4.5 - 11.0 K/UL RBC 2.58 (L) 4.0 - 5.0 M/UL Hemoglobin 8.2 (L) 12.0 - 15.0 GM/DL Hematocrit 24.8 (L) 36 - 45 % MCV 96.2 80 - 100 FL MCH 32.0 26 - 34 PG MCHC 33.2 32.0 - 36.0 G/DL RDW 17.2 (H) 11 - 15 % Platelet Count 132 (L) 150 - 400 K/UL MPV 8.9 7 - 11 FL BASIC METABOLIC PANEL Collection Time: 04/06/18 3:00 AM Result Value Ref Range Sodium 135 (L) 137 - 147 MMOL/L Potassium 4.3 3.5 - 5.1 MMOL/L Chloride 95 (L) 98 - 110 MMOL/L CO2 34 (H) 21 - 30 MMOL/L Anion Gap 6 3 - 12 Glucose 145 (H) 70 - 100 MG/DL Blood Urea Nitrogen 38 (H) 7 - 25 MG/DL Creatinine 1.38 (H) 0.4 - 1.00 MG/DL Calcium 9.6 8.5 - 10.6 MG/DL eGFR Non 39 (L) >60 mL/min eGFR 47 (L) >60 mL/min PTT (APTT) Collection Time: 04/06/18 3:00 AM Result Value Ref Range APTT 20.4 20.0 - 36.0 SEC Point of Care Testing (Last 24 hours) Glucose: (!) 145 (04/06/18 0300) POC Glucose (Download): (!) 185 (04/05/18 2100) Radiology and other Diagnostics Review: Pertinent radiology reviewed. XIMENA BHARDWAJ MD Pager [phone] * Sri Karimi RN - 04/06/2018 5:25 AM CDT Heart Failure Nursing Progress Note Admission Date: 03/25/2018 LOS: 12 days Admission Weight: 113.8 kg (250 lb 12.8 oz) Most recent weights (inpatient): Vitals: 04/04/18 0400 04/05/18 0305 04/06/18 0510 Weight: 110.5 kg (243 lb 9.6 oz) 108 kg (238 lb) 106.4 kg (234 lb 9.6 oz) Weight change from previous day:-1.6 kg Fluid restriction ordered: None at this time Intake/Output Summary: (Last 24 hours) Intake/Output Summary (Last 24 hours) at 04/06/18 0525 Last data filed at 04/06/18 0230 Gross per 24 hour Intake 1002 ml Output 2050 ml Net -1048 ml Is patient incontinent no, but inaccurate due to bowel prep Anticipated discharge date: TBD Discharge goals: TBD Daily Assessment of Patient Stated Goals: Short Term Goal Identified by patient (Short Term=during hospitalization): Get out of here. * Sri Karimi RN - 04/05/2018 8:52 PM CDT 1935 GI paged, patient refusing to continue with bowel prep at this time. Stated if they can't do her procedure tomorrow then that's fine she's not going to keep drinking mag citrate. Team notified and stated to continue to encourage her to drink throughout the night as she would and they will come by and re- evaluate in the morning. Patient given PRN emetics and encouraged to continue trying to take sips as she could. She stated that she might try later tonight if she felt like it. Will continue to encourage patient to drink. * Stacie Mcdonough, THOMPSON - 04/05/2018 5:52 PM CDT Spoke c CV1 to clarify plan of care for pt. Holding Coumadin tonight and Hep gtt currently paused. Will bowel prep tonight for colonoscopy Thursday. 1840- Pt beginning 1st bottle MgCitrate at this time. Much encouragement is needed for pt to continue. * Ervin Woodall, - 04/05/2018 5:26 PM CDT Gastroenterology Progress Note Patient Name:Lucrecia Fields Admission Date: 03/25/2018 2:56 PM Principal Problem: Atrial fibrillation with rapid ventricular response (HCC) Active Problems: Type 2 diabetes mellitus with circulatory disorder, without long-term 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 (HCC) PAF (paroxysmal atrial fibrillation) (HCC) Chronic gastrointestinal bleeding Transfusion-dependent anemia CAD (coronary artery disease), [place] coronary artery HLD (hyperlipidemia) Hypothyroidism DELROY (acute kidney injury) (HCC) Essential hypertension Pleural effusion on left Left leg cellulitis Long's esophagus Acute on chronic diastolic heart failure due to coronary artery disease (HCC) Reason for consult: re-consulted for hematochezia x1 Assessment: 62 yo female p/w SOB and atrial fibrillation. PMH significant for CAD, STEMI, prior CABG 03/12 with subsequent development of atrial fibrillation/flutter not currently on anticoagulation, DM, hypertension. She had previously consulted for evaluation of anticoagulation versus ischemic risk in the setting of a presumed chronic GI bleed. EGD performed 03/29 notable for findings of small amount of GAVE, portal hypertensive gastropathy, grade 1 esophageal varices. No APC performed due to lack of benefit in the setting of small amount of GAVE. Patient now presents with one episode of hematochezia, described as bright red blood per rectum while on heparin to warfarin bridge for atrial fibrillation prophylactic anticoagulation. #Hematochezia #GAVE #Esophageal varices #Need for recurrent blood transfusions #Atrial fibrillation/flutter, not currently anticoagulated #Recent CABG procedure Recommendations: Given the new findings of minimal generalized abdominal pain as well as one episode of hematochezia, we will perform colonoscopy tomorrow for further evaluation of her hematochezia. DDX: Hemorrhoidal bleeding, diverticular bleeding, colonic AVM, ischemic colitis, bleeding colonic polyp, small bowel etiology such as small bowel AVM or polyp. Please prep the patient with magnesium citrate and docusate as the patient is refusing GoLYTELY. Titrate to clear bowel movements. We will attempt to have her be an early case in the morning so as if her colonoscopy is negative she will be able to resume anticoagulation with minimal gap From a GI perspective we would prefer heparin to be held 4-6 hours prior to her procedure. Noted that it is currently off. Resuscitation per primary team as indicated Should the patient develop hemodynamic instability or brisk GI bleed, please contact the on-call fellow Patient discussed with attending on service, Dr. Rolando Woodall DO Pager [phone] GI Fellow 04/05/2018 5:26 PM Interval Events No acute events overnight GI is reconsulted in the setting of one episode of hematochezia associated with generalized minimal abdominal pain Patient's repeat hemoglobin after episode of hematochezia at 8.2 from 8.0 previously Patient is hemodynamically stable and non-tachycardic. Is nontoxic and is resting comfortably. The patient feels otherwise well, denies any fever/chills, SOB, chest pain, N/V , dysuria. PMH: Past Medical History: Diagnosis Date Acquired hypothyroidism Arthritis Back pain Bleeding disorder (HCC) CAD (coronary artery disease), [place] coronary artery 02/16/2018 Chronic diastolic heart failure (HCC) 03/31/2018 Coronary artery disease Diabetes mellitus (HCC) Type II Essential hypertension 02/23/2018 Hypertension Stomach disorder Vision decreased Current medications: No current facility-administered medications on file prior to encounter. Current Outpatient Prescriptions on File Prior to Encounter Medication Sig Dispense Refill acetaminophen (TYLENOL) 325 mg tablet Take two tablets by mouth every 6 hours as needed. 0 aspirin 81 mg chewable tablet Chew one tablet by mouth daily with food. 90 tablet 3 cetirizine (ZYRTEC) 10 mg tablet Take 10 mg by mouth every morning. folic acid (FOLVITE) 1 mg tablet Take 1 mg by mouth daily. GLUCOSAMINE HCL/CHONDROITIN CALDERON (GLUCOSAMINE-CHONDROITIN PO) Take 1 tablet by mouth twice daily. insulin aspart U-100 (NOVOLOG) 100 unit/mL injection Inject four Units under the skin three times daily with meals. 10 mL 30 insulin NPH (HUMULIN N NPH U-100 INSULIN) 100 unit/mL injection Inject fourteen Units under the skin every morning. 10 mL 30 Insulin Syringe-Needle U-100 (BD INSULIN SYRINGE ULTRA-FINE) 0.3 mL 31 gauge x 5/16 syrg Use four times daily with Insulin 100 each 0 levothyroxine (SYNTHROID) 175 mcg tablet Take 175 mcg by mouth daily 30 minutes before breakfast. nitroglycerin (NITROSTAT) 0.[address] 0.4 mg under tongue every 5 minutes as needed for Chest Pain. Max of 3 tablets, call 911. omeprazole DR(+) (PRILOSEC) 40 mg capsule Take 40 mg by mouth twice daily. ondansetron (ZOFRAN) 8 mg tablet Take 8 mg by mouth every 8 hours as needed for Nausea or Vomiting. senna/docusate (SENOKOT-S) 8.6/50 mg tablet Take two tablets by mouth twice daily. (Patient taking differently: Take 2 tablets by mouth at bedtime daily.) 20 tablet 0 traMADol (ULTRAM) 50 mg tablet Take one tablet by mouth every 6 hours as needed for Pain. 30 tablet 0 PSH: Past Surgical History: Procedure Laterality Date HX HEART CATHETERIZATION 2017 CORONARY STENT PLACEMENT 2017 CORONARY ARTERY BYPASS GRAFT N/A 02/16/2018 CORONARY ARTERY BYPASS WITH ARTERIAL GRAFT - 4 GRAFTS (Internal Mammary Artery and Endovascular Vein [place]) performed by Lance Pal MD at [facility] HX MAZE N/A 02/16/2018 MAZE PROCEDURE performed by Lance Pal MD at [facility] UPPER GASTROINTESTINAL ENDOSCOPY N/A 03/29/2018 ESOPHAGOGASTRODUODENOSCOPY performed by Dannielle Covington MD at ENDO/GI ANKLE SURGERY Left ankle reconstruction COLONOSCOPY HX KNEE ARTHROSCOPY Left HX TONSIL AND ADENOIDECTOMY TUBAL LIGATION UPPER GASTROINTESTINAL ENDOSCOPY SH: Social History Social History Marital status: Spouse name: N/A Number of children: N/A Years of education: N/A Occupational History Not on file. Social History Main Topics Smoking status: Former Smoker Packs/day: 2.00 Years: 10.00 Types: Cigarettes Quit date: 09/28/1981 Smokeless tobacco: Never Used Alcohol use Yes Comment: Seldom Drug use: No Sexual activity: Not on file Other Topics Concern Not on file Social History Narrative No narrative on file FH: Family History Problem Relation Age of Onset [...] Grandmother Diabetes Paternal Grandmother Cancer Paternal Grandfather Physical Exam: Vitals: 04/05/18 0841 04/05/18 0939 04/05/18 1100 04/05/18 1258 BP: 124/78 143/50 Pulse: 84 85 86 82 Temp: 36.4 C (97.5 F) 36.5 C (97.7 F) SpO2: 92% 94% 94% Weight: Height: General - Alert and oriented, no acute distress. Head - Normocephalic, atraumatic. Eyes - EOMI grossly. No icterus or injection. Oropharynx- No ulcer or bleeding, moist mucosa. Neck - No swelling or tracheal deviation. Lung - soft crackles in b/l bases, on 2L NC Abd - Soft, minimally TTP generalized, non distended, normal bowel sounds, no hepatospenomegaly. Extremities - Warm, dry. 2+ pitting edema b/l LEs Skin - No exposed rash, lesion. Neurological - No gross deficit Labs/Imaging: Pertient labs/imaging was reviewed on initiation of progress note. * Reilly Olivera - 04/05/2018 5:24 PM CDT Renal Progress Note Name: Lucrecia Fields Today's Date: 04/05/2018 Admission Date: 03/25/2018 LOS: 11 days Assessment and Plan Principal Problem: Atrial fibrillation with rapid ventricular response (HCC) Active Problems: Type 2 diabetes mellitus with circulatory disorder, without long-term 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 (HCC) PAF (paroxysmal atrial fibrillation) (HCC) Chronic gastrointestinal bleeding Transfusion-dependent anemia CAD (coronary artery disease), [place] coronary artery HLD (hyperlipidemia) Hypothyroidism DELROY (acute kidney injury) (HCC) Essential hypertension Pleural effusion on left Left leg cellulitis Long's esophagus Acute on chronic diastolic heart failure due to coronary artery disease (HCC) Lucrecia Fields is a 62 y.o. female s/p CABG admitted for dyspnea and volume overload. DELROY -no significant CKD -renal ultrasound without hydronephrosis -no recent nephrotoxins -creatinine progressively increasing -I&O appear inaccurate -FeUrea 8% suggesting renal hypoperfusion Atrial flutter Leukocytosis CAD s/p CABG Anemia HTN Hyponatremia, hypervolemic Encephalopathy, likely related to hypercapnea Recommendations: -renal function continues to improve, now near baseline -continue IV diuresis -strict I&O, standing daily wieght -please call with questions or concerns Reilly Olivera MD PGY-5 Nephrology Fellow Pager [phone] Subjective Lucrecia Fields is a 62 y.o. female no issues overnight, creatinine 1.3, off oxygen, doing well. Medications Medications MEDS aspirin 81 mg Oral QDAY cetirizine 10 mg Oral QAM8 diltiazem CD 180 mg Oral QDAY folic acid 1 mg Oral QDAY heparin (porcine) 20-40 Units/kg Intravenous As Prescribed insulin aspart U-100 0-14 Units Subcutaneous ACHS insulin NPH 18 Units Subcutaneous QDAY() levothyroxine 175 mcg Oral QDAY 30 min before breakfast magnesium citrate 296 mL Oral ONCE magnesium oxide 400 mg Oral BID melatonin 5 mg Oral QHS metoprolol tartrate 100 mg Oral BID nystatin Topical BID pantoprazole DR 80 mg Oral QDAY() potassium chloride SR 60 mEq Oral ONCE rosuvastatin 40 mg Oral QDAY senna/docusate 2 tablet Oral BID sucralfate 1 g Oral QID warfarin 2.5 mg Oral QHS IV MEDS heparin (porcine) 20,000 Units in dextrose 5% (D5W) 250 mL IV infusion (dbl conc) Stopped (04/05/18 1432) Prn acetaminophen Q6H PRN 650 mg at 04/03/18 1814, hydrOXYzine TID PRN 25 mg at 04/04/182011, nitroglycerin Q5 MIN PRN, ondansetron Q8H PRN 8 mg at 1118, traMADol Q6H PRN 50 mg at 04/05/18 1541, warfarin QHS 2.5 mg at 2011 AND warfarin, pharmacy to manage Per Pharmacy Physical Exam Vital Signs: Last Filed In 24 Hours Vital Signs: 24 Hour Range BP: 143/50 (04/05 1100) Temp: 36.5 C (97.7 F) (04/05 1100) Pulse: 82 (04/05 1258) Respirations: 14 PER MINUTE (04/05 1100) SpO2: 94 % (04/05 1100) O2 Delivery: Nasal Cannula (04/05 1100) BP: (124-148)/(50-78) Temp: [36.3 C (97.4 F)-36.6 C (97.9 F)] Pulse: [82-92] Respirations: [14 PER MINUTE-18 PER MINUTE] SpO2: [92 %-100 %] O2 Delivery: Nasal Cannula Intensity Pain Scale (Self Report): 8 (04/05/18 1540) Intake/Output Summary (Last 24 hours) at 04/05/18 1724 Last data filed at 04/05/18 1617 Gross per 24 hour Intake 652 ml Output 3175 ml Net -2523 ml Vitals: 04/03/18 0500 04/04/18 0400 04/05/18 0305 Weight: 109.1 kg (240 lb 9.6 oz) 110.5 kg (243 lb 9.6 oz) 108 kg (238 lb) Gen: drowsy, mild respiratory distress HEENT: Sclera normal; MMM CV:no JVD, regular rhythm Pulm: Clear to Auscultation bilateral, diminished GI: BS+ x4, non-tender to palpation Neuro: drowsy, moving all ext Ext: trace ble edema, no clubbing or cyanosis Skin: no rash, dry Labs: Recent Labs 04/03/1842304/04/1843304/05/18423 NA 133* 137 137 K 3.5 3.4* 3.4* CL 97* 98 95* CO2 28 33* 35* GAP 8 6 7 BUN 54* 50* 44* CR 1.91* 1.50* 1.28* GLU 179* 133* 172* CA 9.1 9.4 9.3 MG 1.8 1.7 1.9 Recent Labs 04/02/18210304/03/1842304/03/18201004/04/1843304/05/1842304/05/18 1410 WBC -- 5.1 -- 4.6 4.3* 4.7 HGB -- 8.0* 8.1* 8.1* 8.0* 8.2* HCT -- 24.6* 24.1* 24.9* 24.9* 25.2* PLTCT -- 158 -- 146* 128* 139* INR -- -- -- 1.4* 1.5* -- PTT 85.7* 96.4* -- 105.4* 111.3* 96.5* Estimated Creatinine Clearance: 56.1 mL/min (A) (based on SCr of 1.28 mg/dL (H)) . Vitals: 04/03/18 0500 04/04/18 0400 04/05/18 0305 Weight: 109.1 kg (240 lb 9.6 oz) 110.5 kg (243 lb 9.6 oz) 108 kg (238 lb) No results for input(s): PHART, PO2ART in the last 72 hours. Invalid input(s): PC02A Associated attestation - Alyx Noland MBBS - 04/05/2018 8:36 PM CDT ATTESTATION I personally performed the history and the physical examination of the patient and discussed his management with the fellow (resident). I reviewed the fellow' s (residents) note and agree with the documented findings and plan of care. Staff name: Alyx Noland Date: 04/05/2018 * Ximena Bhardwaj MD - 04/05/2018 3:51 PM CDT General Progress Note Name: Lucrecia Fields Today's Date: 04/05/2018 Admission Date: 03/25/2018 LOS: 11 days Assessment/Plan: Principal Problem: Atrial fibrillation with rapid ventricular response (HCC) Active Problems: Type 2 diabetes mellitus with circulatory disorder, without long-term 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 (HCC) PAF (paroxysmal atrial fibrillation) (HCC) Chronic gastrointestinal bleeding Transfusion-dependent anemia CAD (coronary artery disease), [place] coronary artery HLD (hyperlipidemia) Hypothyroidism [place] (acute kidney injury) (HCC) Essential hypertension Pleural effusion on left Left leg cellulitis Long's esophagus Acute on chronic diastolic heart failure due to coronary artery disease (HCC) Lucrecia Fieldsis a 62 y.o.female, the patienthas a past medical history of Acquired hypothyroidism; Arthritis; Back pain; Bleeding disorder (HCC); Coronary artery disease; Diabetes mellitus (HCC); Hypertension; Stomach disorder ; and Vision decreased.presenting with shortness of breath, dizziness/ lightheadedness, chills, nausea, lower extremity swelling and palpitations. 1. 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 Shortness of Breath/Lower extremity swelling, volume overload - LLE swelling greater than right since surgery - has history of DVT - BNP 327 on admission - Daily CXR with persistent left sided pleural effusion - IR drain and Chest tube on left side (removed 03/31) - OPxygen requirement titrated down, on room air 04/05/2018 Plan for today: > Discontinue Lasix drip 10mg/hr > 100mg Iv lasix One time today; assess I/O going forward > Will need daily diuresis plan going forward 3. Acute kidney injury, improving -FE urea 8.4%, consistent with prerenal etiology on admission -Improving with diuresis, consistent with cardiorenal syndrome -Renal ultrasound unremarkable -Urine eosinophils negative Plan: > Avoid nephrotoxic medications > Nephrology consulted > continue diuresis; transition to PO soon 4. Altered mental status, improved -Hypercapnia versus uremia versus infectious -Has been lethargic and confused for the past 3 days now -Wanted to leave AMA multiple times Plan: >AOx3 today w/o abnormality 5. Cellulitis of lower extremity, left, improved - Amoxicillin started on 03/26, end 03/29 - Doxycycline 03/29-04/04 - Completed therapy recommendations per ID Plan: > Monitor going forward 6. CAD s/p CABG 02/16/18 - no chest pain, surgical scar well healing - trop/EKG negative for ischemia on admission Plan for today: >Continue ASA, BB > monitor 7. 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 Hypothyroidism > Continue Synthroid 9. HLD > Continue YARD WORKER statin 10. HTN > Continue metoprolol 10. DMII tomorrow - YARD WORKER regimen: NPH 18u QD, Novolog 4u TID w/ meals > Continue YARD WORKER NPH, add on mid dose correction factor Fluids, electrolytes and Nutrition: IVF:no IVF Electrolytes:Monitor and replace PRN. Diet:Cardiac Diet Ppx: DVT:SCD Stress ulcer:PPI Code status: Full Code Disposition:contiue on CV1, continue diuresis going forward. Patient has been seen and discussed with Dr. Naren BHARDWAJ MD Subjective Lucrecia Fields is a 62 y.o. female. She is doing well this morning and without any new complaints, aside from a desire to stop IV Lasix as it is causing her anxiety having to urinate so often. After discussing it with her it was decided to boluc dose her today then assess how she responds without the drip throughout the day, and she was appreciative of this. She is breathing better and now off of supplemental Oxygen. She will require further diuresis going forward. Review of Systems: Denies chest pain, SOB, nausea, vomiting, abdominal pain, diarrhea, constipation. + Anxiety Medications Scheduled Meds: aspirin chewable tablet 81 mg 81 mg Oral QDAY cetirizine (ZYRTEC) tablet 10 mg 10 mg Oral QAM8 diltiazem CD (cardIZEM CD) capsule 180 mg 180 mg Oral QDAY folic acid (FOLVITE) tablet 1 mg 1 mg Oral QDAY heparin (porcine) injection 2,250-4,500 Units 20-40 Units/kg Intravenous As Prescribed insulin aspart U-100 (NOVOLOG FLEXPEN) injection PEN 0-14 Units 0-14 Units Subcutaneous ACHS insulin NPH (HUMULIN N KwikPen) injection PEN 18 Units 18 Units Subcutaneous QDAY(07) levothyroxine (SYNTHROID) tablet 175 mcg 175 mcg Oral QDAY 30 min before breakfast magnesium oxide (MAG-OX) tablet 400 mg 400 mg Oral BID melatonin tablet 5 mg 5 mg Oral QHS metoprolol tartrate (LOPRESSOR) tablet 100 mg 100 mg Oral BID nystatin (NYSTOP) topical powder Topical BID pantoprazole DR (PROTONIX) tablet 80 mg 80 mg Oral QDAY(21) rosuvastatin (CRESTOR) tablet 40 mg 40 mg Oral QDAY senna/docusate (SENOKOT-S) tablet 2 tablet 2 tablet Oral BID sucralfate (CARAFATE) tablet 1 g 1 g Oral QID warfarin (COUMADIN) tablet 2.5 mg 2.5 mg Oral QHS Continuous Infusions: heparin (porcine) 20,000 Units in dextrose 5% (D5W) 250 mL IV infusion (dbl conc) Stopped (04/05/18 1432) PRN and Respiratory Meds:acetaminophen Q6H PRN, hydrOXYzine TID PRN, nitroglycerin Q5 MIN PRN, ondansetron Q8H PRN, traMADol Q6H PRN, warfarin QHS AND warfarin, pharmacy to manage Per Pharmacy Objective: Vital Signs: Last Filed Vital Signs: 24 Hour Range BP: 143/50 (04/05 1100) Temp: 36.5 C (97.7 F) (04/05 1100) Pulse: 82 (04/05 1258) Respirations: 14 PER MINUTE (04/05 1100) SpO2: 94 % (04/05 1100) O2 Delivery: Nasal Cannula (10/22 1100) BP: (124-148)/(50-78) Temp: [36.3 C (97.4 F)-36.6 C (97.9 F)] Pulse: [82-92] Respirations: [14 PER MINUTE-18 PER MINUTE] SpO2: [92 %-100 %] O2 Delivery: Nasal Cannula Intensity Pain Scale (Self Report): 8 (04/05/18 1540) Vitals: 04/03/18 0500 04/04/18 0400 04/05/18 0305 Weight: 109.1 kg (240 lb 9.6 oz) 110.5 kg (243 lb 9.6 oz) 108 kg (238 lb) Intake/Output Summary: (Last 24 hours) Intake/Output Summary (Last 24 hours) at 04/05/18 1552 Last data filed at 04/05/18 1501 Gross per 24 hour Intake 952 ml Output 3300 ml Net -2348 ml Stool Occurrence: 1 Physical Exam General: alert and oriented Eyes: Conjunctivae/corneas clear. EOMI bilaterally, no conjunctival injection Neck: JVD at 9cm present. HJR+ Lungs: Mild crackles in lower lung jennings, otherwise clear throughout Heart: Regular rhythm, tachycardic, S1, S2 normal, no appreciable murmur Abdomen: Soft, non-tender. Bowel sounds normal. No masses. No organomegaly. Extremities: Bilateral lower extremities. 2+ pitting edema bilaterally, mildly worse on the left side, there is a scar assumably where the vein graft was harvested, erythema improved, without any purulence noted Skin: Scar on left leg from saphenous vein graft without purulence, there is erythema, warmth is equal bilaterally Neurologic: CNII - XII intact. Normal strength, sensation and reflexes throughout. Psych: normal mood and affect Lab Review 24-hour labs: Results for orders placed or performed during the hospital encounter of (from the past 24 hour(s)) POC GLUCOSE Collection Time: 04/04/18 8:15 PM Result Value Ref Range Glucose, POC 242 (H) 70 - 100 MG/DL PROTIME INR (PT) Collection Time: 04/05/18 4:24 AM Result Value Ref Range INR 1.5 (H) 0.8 - 1.2 CBC Collection Time: 04/05/18 4:24 AM Result Value Ref Range White Blood Cells 4.3 (L) 4.5 - 11.0 K/UL RBC 2.54 (L) 4.0 - 5.0 M/UL Hemoglobin 8.0 (L) 12.0 - 15.0 GM/DL Hematocrit 24.9 (L) 36 - 45 % MCV 98.3 80 - 100 FL MCH 31.7 26 - 34 PG MCHC 32.3 32.0 - 36.0 G/DL RDW 18.7 (H) 11 - 15 % Platelet Count 128 (L) 150 - 400 K/UL MPV 8.2 7 - 11 FL BASIC METABOLIC PANEL Collection Time: 04/05/18 4:24 AM Result Value Ref Range Sodium 137 137 - 147 MMOL/L Potassium 3.4 (L) 3.5 - 5.1 MMOL/L Chloride 95 (L) 98 - 110 MMOL/L CO2 35 (H) 21 - 30 MMOL/L Anion Gap 7 3 - 12 Glucose 172 (H) 70 - 100 MG/DL Blood Urea Nitrogen 44 (H) 7 - 25 MG/DL Creatinine 1.28 (H) 0.4 - 1.00 MG/DL Calcium 9.3 8.5 - 10.6 MG/DL eGFR Non 43 (L) >60 mL/min eGFR 51 (L) >60 mL/min PTT (APTT) Collection Time: 04/05/18 4:24 AM Result Value Ref Range APTT 111.3 (H) 20.0 - 36.0 SEC MAGNESIUM Collection Time: 04/05/18 4:24 AM Result Value Ref Range Magnesium 1.9 1.6 - 2.6 mg/dL POC GLUCOSE Collection Time: 04/05/18 9:03 AM Result Value Ref Range Glucose, POC 199 (H) 70 - 100 MG/DL POC GLUCOSE Collection Time: 04/05/18 1:48 PM Result Value Ref Range Glucose, POC 160 (H) 70 - 100 MG/DL CBC Collection Time: 04/05/18 2:10 PM Result Value Ref Range White Blood Cells 4.7 4.5 - 11.0 K/UL RBC 2.59 (L) 4.0 - 5.0 M/UL Hemoglobin 8.2 (L) 12.0 - 15.0 GM/DL Hematocrit 25.2 (L) 36 - 45 % MCV 97.1 80 - 100 FL MCH 31.8 26 - 34 PG MCHC 32.7 32.0 - 36.0 G/DL RDW 18.1 (H) 11 - 15 % Platelet Count 139 (L) 150 - 400 K/UL MPV 8.2 7 - 11 FL PTT (APTT) Collection Time: 04/05/18 2:10 PM Result Value Ref Range APTT 96.5 (H) 20.0 - 36.0 SEC POC GLUCOSE Collection Time: 04/05/18 4:17 PM Result Value Ref Range Glucose, POC 186 (H) 70 - 100 MG/DL Point of Care Testing (Last 24 hours) Glucose: (!) 172 (04/05/18 0424) POC Glucose (Download): (!) 160 (04/05/18 3552) Radiology and other Diagnostics Review: Pertinent radiology reviewed. XIMENA BHARDWAJ MD Pager [phone] Associated attestation - Felisa Hector MD - 04/05/2018 10:59 PM CDT CARDIOLOGY STAFF NOTE Ms. Fields had another episode of hematochezia today, so we have asked our GI colleagues to reassess her and will hold heparin for now. We will transition from lasix drip to bolus infusion and monitor her response. She still is volume overloaded. Creatinine continues to improve, now 1.3. Heart rate is controlled on current meds. ATTESTATION I personally performed the dempsey portions of the E/M visit, discussed the case with the resident, and concur with the resident's documentation of history, physical exam, assessment, and treatment plan unless otherwise noted. Staff moderate needs teacher: Felisa Hector MD, PhD Date: 04/05/2018 * Stacie Mcdonough RN - 04/05/2018 3:46 PM CDT Pt c/o "sharp" abd pain since seeing blood in stool. Tramadol given per pt request. Pt then requesting "chex mix" as the only thing that sounds good. Education provided regarding Cardiac diet and Sodium restrictions. Pt voiced understanding of education and then began eating chex mix. * Stacie Mcdonough RN - 04/05/2018 1:40 PM CDT 1335- Hep gtt paused. Bright red blood found in BM. CV1 paged to update and for further orders. 1350- CV1 on unit. Updated on pt condition. Orders to draw CBC & PTT, keep heparin paused. 1410- Lab unable to obtain peripheral lab draw. Blood drawn from IV line and sent to lab for CBC & PTT. Will page CV1 with results. * Sunshine Mejias, YANELI - 04/05/2018 12:31 PM CDT Pharmacy Warfarin Note Subjective: Pharmacy consulted to assist with management of warfarin therapy. Objective: Lucrecia Fields is a 62 y.o. female receiving warfarin for AF. Current Warfarin Orders Medication Dose Route Frequency warfarin (COUMADIN) tablet 2.5 mg 2.5 mg Oral QHS And warfarin, pharmacy to manage 1 each Service Per Pharmacy Bridge therapy: hep gtt. Patient's warfarin dose prior to admission: n/a INR Date/Time Value Ref Range Status 04/05/2018 0424 1.5 (H) 0.8 - 1.2 Final 04/04/2018 0434 1.4 (H) 0.8 - 1.2 Final Drug interaction(s): none. Assessment: Patient's goal INR is 2-3 for AF. INR: INR (no units) Date/Time Value 04/05/2018 0424 1.5 (H) Plan: 1. continue warfarin at 2.5 mg 2. Next INR: Tomorrow 3. Pharmacy will continue to monitor, follow and adjust therapy as needed. If a patient requires an invasive procedure that necessitates warfarin being held, anticoagulation reversal, or if a provider other than Pharmacy discontinues/places an order for warfarin, the pharmacy to manage warfarin order will be discontinued per the policy and warfarin therapy will no longer be managed by Pharmacy Sunshine Mejias PHARMD 04/05/2018 * Luna Murillo - 04/05/2018 11:05 AM CDT PHYSICAL THERAPY NOTE Patient adamantly declined all mobility for today repeatedly stating "I'm sick. " Therapist educated on importance of increasing out of bed activity and progressing mobility with patient's desire to return home. Patient continued to decline despite therapists max encouragement and additional support from spouse. Therapist notified RN of reported nausea with providing medication however no change in wanting to get out of bed with therapy. Patient stated she will try to work tomorrow but unable to get commitment for scheduled time for therapy. Noted withdrawal from conversation with therapist and increase agitation at times following encouragement. At this time, recommend inpatient setting due to physical assistance needed with all functional mobility and patient unable to tolerate ambulation. Spouse unable to provide any assistance at home with patient needing to be Independent with mobility ambulating safely 50ft with walker if wanting to discharge to home. Physical therapy will continue to follow and provide intervention as indicated. Therapist: Luna Murillo Date: 04/05/2018 * Linda Joya - 04/05/2018 9:53 AM CDT OCCUPATIONAL THERAPY PROGRESS NOTE Patient Name: Lucrecia Fields Room/Bed: 530[facility] Admitting Diagnosis: Past Medical History: Diagnosis Date Acquired hypothyroidism Arthritis Back pain Bleeding disorder (HCC) CAD (coronary artery disease), [place] coronary artery 02/16/2018 Chronic diastolic heart failure (HCC) 03/31/2018 Coronary artery disease Diabetes mellitus (HCC) Type II Essential hypertension 02/23/2018 Hypertension Stomach disorder Vision decreased Mobility Progressive Mobility Level: Walk in room Distance Walked (feet): 4 ft Level of Assistance: Assist X1 Assistive Device: None Time Tolerated: 0-10 minutes Activity Limited By: Patient request to stop;Fatigue Subjective Pertinent Dx per Physician: s/p CABG/MAZE/ ligation SETH on Dr. Pal on 02/16/18 admitted 03/25/18 with atrial fibrillation and left pleural effusion. Chest tube placed 03/26. Transferred to [facility] 04/01 for respiratory concerns. Precautions: Falls Pain / Complaints: Patient agrees to participate in therapy;Patient has no c/o pain Objective Psychosocial Status: Willing and Cooperative to Participate Persons Present: Spouse Home Living Type of Home: House Home Layout: One Level;Ramped Entrance Prior Function Level Of [place]: Independent with ADLs and functional transfers Lives With: Spouse Other Function Comments: Spouse in power scooter. Patient states she was not having difficulty with ADLS or mobility at home since CABG ADL's LE Dressing Assist: Total Assist LE Dressing Deficits: Don/Doff R Sock;Don/Doff L Sock Functional Transfer Assist: Minimal Assist Functional Transfer Deficits: Steadying;Supervision/Safety Comment: Patient requesting to return to bed upon entry. Patient states she is so fatigued and has been up in the chair for one hour. Patient required contact guard assist to transfer to bed and assist to lift B LES into bed. Assist to doff both socks. Activity Tolerance Endurance: 1/5 Tolerates <10 Minutes Exercises, No Significant Change in Vital Signs Sitting Balance: 3+/5 Sits w/o UE Support for 30 Seconds or Greater Cognition Overall Cognitive Status: WFL to Adequately Complete Self Care Tasks Safely Assessment Assessment: Decreased ADL Status;Decreased Endurance;Decreased Self-Care Trans; Decreased High-Level ADLs;Decreased UE Strength Prognosis: Good;w/Cont OT s/p Acute Discharge Goal Formulation: Patient AM-PAC 6 Clicks Basic Mobility Inpatient Turning from your back to your side while in a flat bed without using bed rails : A Little Moving from lying on your back to sitting on the side of a flatbed without using bedrails : A Little Moving to and from a bed to a chair (including a wheelchair): A Little Standing up from a chair using your arms (e.g. wheelchair, or bedside chair): A Little To walk in hospital room: A Little Climbing 3-5 steps with a railing: A Lot Raw Score: 17 Standardized (T-scale) Score: 39.67 Basic Mobility CMS 0-100%: 43.83 CMS G Code Modifier for Basic Mobility: CK AM-PAC 6 Clicks Daily Activity Inpatient Putting on and taking off regular lower body clothes?: A Lot Bathing (Including washing, rinsing, drying): A Lot Toileting, which includes using toilet, bedpan, or urinal: A Lot Putting on and taking off regular upper body clothing: A Little Taking care of personal grooming such as brushing teeth: None Eating meals?: None Daily Activity Raw Score: 17 Standardized (t-scale) score: 37.26 CMS 0-100% Score: 50.11 CMS G Code Modifier: CK Plan OT Frequency: 5x/week OT Plan for Next Visit: Progress mobility to standing at sink for grooming with chair behind as needed. ADL Goals Patient Will Perform Grooming: Standing at Sink;w/ Stand By Assist Patient Will Perform Toileting: w/ Stand By Assist Functional Transfer Goals Pt Will Perform All Functional Transfers: w/ Stand By Assist OT Discharge Recommendations OT Discharge Recommendations: Inpatient Setting Equipment Recommendations: Too early to be determined Therapist: Linda Young [id number] Date: 04/05/2018 * Eyad Feldman RT - 04/05/2018 9:41 AM CDT RT Adult Assessment Note NAME:Lucrecia Fields :1955 AGE: 62 y.o. ADMISSION DATE: 03/25/2018 DAYS ADMITTED: LOS: 11 days RT Treatment Plan: Protocol Plan: Procedures PAP: Q4h PAP IPPB: Place a nursing order for "IS Q1h While Awake" for any of Lung Expansion indicators Oxygen/Humidity: O2 to keep SpO2 > 92% Monitoring: Pulse oximetry BID & PRN Additional Comments: Impressions of the patient: shallow breaths. CXR atelectasis. Continue lung expansion therapy. Vital Signs: Pulse: Pulse: 85 RR: Respirations: 17 PER MINUTE SpO2: SpO2: 94 % O2 Device: $$ O2 Device: Standby Liter Flow: O2 Liter Flow: (RA) O2%: Breath Sounds: Respiratory Effort: Respiratory Effort: Non-Labored * Reilly Olivera - 04/04/2018 3:52 PM CDT Renal Progress Note Name: Lucrecia Fields Today's Date: 04/04/2018 Admission Date: 03/25/2018 LOS: 10 days Assessment and Plan Principal Problem: Atrial fibrillation with rapid ventricular response (HCC) Active Problems: Type 2 diabetes mellitus with circulatory disorder, without long-term 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 (HCC) PAF (paroxysmal atrial fibrillation) (HCC) Chronic gastrointestinal bleeding Transfusion-dependent anemia CAD (coronary artery disease), [place] coronary artery HLD (hyperlipidemia) Hypothyroidism DELROY (acute kidney injury) (HCC) Essential hypertension Pleural effusion on left Left leg cellulitis Long's esophagus Acute on chronic diastolic heart failure due to coronary artery disease (HCC) Lucrecia Fields is a 62 y.o. female s/p CABG admitted for dyspnea and volume overload. DELROY -no significant CKD -renal ultrasound without hydronephrosis -no recent nephrotoxins -creatinine progressively increasing -I&O appear inaccurate -FeUrea 8% suggesting renal hypoperfusion Atrial flutter Leukocytosis CAD s/p CABG Anemia HTN Hyponatremia, hypervolemic Encephalopathy, likely related to hypercapnea Recommendations: -renal function continues to improve -continue IV diuresis, likely transition to PO soon -strict I&O, standing daily wieght -please call with questions or concerns Reilly Olivera MD PGY-5 Nephrology Fellow Pager [phone] Subjective Lucrecia Fields is a 62 y.o. female no issues overnight, creatinine continues to improve, UOP 4.3 L, transferred to floor today. Medications Medications MEDS aspirin 81 mg Oral QDAY cetirizine 10 mg Oral QAM8 diltiazem CD 180 mg Oral QDAY folic acid 1 mg Oral QDAY heparin (porcine) 20-40 Units/kg Intravenous As Prescribed insulin aspart U-100 0-14 Units Subcutaneous ACHS insulin NPH 18 Units Subcutaneous QDAY(07) levothyroxine 175 mcg Oral QDAY 30 min before breakfast magnesium oxide 400 mg Oral BID magnesium sulfate 4 g/50 mL 2 g Intravenous ONCE melatonin 5 mg Oral QHS metoprolol tartrate 100 mg Oral BID nystatin Topical BID pantoprazole DR 80 mg Oral QDAY(21) rosuvastatin 40 mg Oral QDAY senna/docusate 2 tablet Oral BID sucralfate 1 g Oral QID warfarin 2.5 mg Oral QHS IV MEDS furosemide (LASIX) 500 mg in 50 mL IV drip syr (max conc) 10 mg/hr ( 1232) heparin (porcine) 20,000 Units in dextrose 5% (D5W) 250 mL IV infusion (dbl conc) 1,570 Units/hr (04/04/18 1426) Prn acetaminophen Q6H PRN 650 mg at 04/03/18 1814, hydrOXYzine TID PRN 25 mg at 04/04/18 0759, nitroglycerin Q5 MIN PRN, ondansetron Q8H PRN 8 mg at 0956, traMADol Q6H PRN 50 mg at 04/04/18 0332, warfarin QHS 2.5 mg at 108 AND warfarin, pharmacy to manage Per Pharmacy Physical Exam Vital Signs: Last Filed In 24 Hours Vital Signs: 24 Hour Range BP: 134/61 (04/04 1525) Temp: 36.4 C (97.6 F) (04/04 1525) Pulse: 79 (04/04 1525) Respirations: 16 PER MINUTE (04/04 1525) SpO2: 100 % (04/04 1525) O2 Delivery: Nasal Cannula (04/04 1525) SpO2 Pulse: 79 (04/04 1200) BP: (102-143)/(44-68) Temp: [36.3 C (97.4 F)-36.5 C (97.7 F)] Pulse: [77-100] Respirations: [16 PER MINUTE-24 PER MINUTE] SpO2: [95 %-100 %] O2 Delivery: Nasal Cannula Intensity Pain Scale (Self Report): 6 (04/04/18 0400) Intake/Output Summary (Last 24 hours) at 04/04/18 1552 Last data filed at 04/04/18 1400 Gross per 24 hour Intake 1193.8 ml Output 4150 ml Net -2956.2 ml Vitals: 04/02/18 0600 04/03/18 0500 04/04/18 0400 Weight: 112.4 kg (247 lb 12.8 oz) 109.1 kg (240 lb 9.6 oz) 110.5 kg (243 lb 9.6 oz) Gen: drowsy, mild respiratory distress HEENT: Sclera normal; MMM CV:no JVD, regular rhythm Pulm: Clear to Auscultation bilateral, diminished GI: BS+ x4, non-tender to palpation Neuro: drowsy, moving all ext Ext: trace ble edema, no clubbing or cyanosis Skin: no rash, dry Labs: Recent Labs 04/01/18 1927 04/02/18 0520 04/03/18 0424 04/04/18 0434 NA 132* 132* 133* 137 K 4.4 3.7 3.5 3.4* CL 98 97* 97* 98 CO2 26 26 28 33* GAP 8 9 8 6 BUN 53* 56* 54* 50* CR 2.94* 2.42* 1.91* 1.50* GLU 150* 164* 179* 133* CA 9.3 9.1 9.1 9.4 MG -- 1.7 1.8 1.7 Recent Labs 04/01/18 2324 04/02/18 0520 04/02/18 1400 04/02/18 2104 04/03/18 0424 04/03/18201004/04/18 0434 WBC 6.3 7.3 -- -- 5.1 -- 4.6 HGB 8.2* 8.3* -- -- 8.0* 8.1* 8.1* HCT 25.5* 25.6* -- -- 24.6* 24.1* 24.9* PLTCT 187 193 -- -- 158 -- 146* INR -- -- -- -- -- -- 1.4* PTT 26.4 126.3* 88.1* 85.7* 96.4* -- 105.4* Estimated Creatinine Clearance: 48.5 mL/min (A) (based on SCr of 1.5 mg/dL (H)). Vitals: 04/02/18 0600 04/03/18 0500 04/04/18 0400 Weight: 112.4 kg (247 lb 12.8 oz) 109.1 kg (240 lb 9.6 oz) 110.5 kg (243 lb 9.6 oz) No results for input(s): PHART, PO2ART in the last 72 hours. Invalid input(s): PC02A Associated attestation - Alyx Noland MBBS - 04/04/2018 7:38 PM CDT ATTESTATION I personally performed the history and the physical examination of the patient and discussed his management with the fellow (resident). I reviewed the fellow' s (residents) note and agree with the documented findings and plan of care. Staff name: Alyx Noland Date: 04/04/2018 * Giovanni Brooks DO - 04/04/2018 2:57 PM CDT General Progress Note Name: Lucrecia Fields Today's Date: 04/04/2018 Admission Date: 03/25/2018 LOS: 10 days Assessment/Plan: Principal Problem: Atrial fibrillation with rapid ventricular response (HCC) Active Problems: Type 2 diabetes mellitus with circulatory disorder, without long-term 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 (HCC) PAF (paroxysmal atrial fibrillation) (HCC) Chronic gastrointestinal bleeding Transfusion-dependent anemia CAD (coronary artery disease), [place] coronary artery HLD (hyperlipidemia) Hypothyroidism DELROY (acute kidney injury) (HCC) Essential hypertension Pleural effusion on left Left leg cellulitis Long's esophagus Acute on chronic diastolic heart failure due to coronary artery disease (HCC) Lucrecia Fields is a 62 y.o. female, the patient has a past medical history of Acquired hypothyroidism; Arthritis; Back pain; Bleeding disorder (HCC); Coronary artery disease; Diabetes mellitus (HCC); Hypertension; Stomach disorder ; and Vision decreased. presenting with shortness of breath, dizziness/ lightheadedness, chills, nausea, lower extremity swelling and palpitations. 1. Atrial fluter, not on AC - has had intermittent atrial flutter since CABG - not on AC due to history of GIB - has had palpitations for about 1 week prior to presentation, no CP or syncope - EKG on admission: atrial fibrillation, rate 98, no ST changes - GI and CTS consulted to discuss effusion and AC in setting of bleeding history - EGD showing 3 columns of esophageal varices, mild portal hypertensive gastropathy without bleeding, gave without bleeding and gastric antrum, mild, and possible Long's esophagus, no biopsies taken - Rates controlled on dilt and metoprolol 100 mg BID Plan for today: > Continue ASA and Metoprolol 100 twice daily > Diltiazem 180 mg daily > on heparin drip > warfarin 2.5 mg, monitor INR 2. Shortness of Breath/Lower extremity swelling, concern for DVT, volume overload - LLE swelling greater than right since surgery - has history of DVT - BNP 327 on admission - CXR with persistent left sided pleural effusion - IR drain and Chest tube on left side -CTS okay with anticoagulation while chest tube is in place -Chest x-ray worse overnight showing increased pulmonary vascular congestion -Net even over last 24 hours despite aggressive diuretic use -I/O not accurate -Refusing BiPAP, 2L nasal canula now Plan for today: > Continue Lasix drip 10mg/hr and intermittent boluses of chlorothiazide > Encourage BiPAP 3. Acute kidney injury, improving -FE urea 8.4%, consistent with prerenal etiology -Improving with diuresis, consistent with cardiorenal syndrome -Renal ultrasound unremarkable: Urine output, oliguria -Changed amoxicillin to doxycycline -Urine eosinophils negative - back to baseline this am Plan: > Avoid nephrotoxic medications > Nephrology consulted > continue diuresis 4. Altered mental status, improved -Hypercapnia versus uremia versus infectious -Has been lethargic and confused for the past 3 days now -Wanted to leave AMA multiple times Plan: >Diuresis with lasix drip >on doxycycline for LLE cellulitis 5. Cellulitis of lower extremity, left, improved - Amoxicillin started on 03/26, end 03/29 Plan: >continue doxycycline, end 04/04/18 6. CAD s/p CABG 02/16/18 - no chest pain, surgical scar well healing - trop/EKG negative for ischemia on admission Plan for today: > Continue ASA, BB > monitor 7. Anemia, normocytic, chronic blood loss, not due to postoperative complications, stable -Chronic secondary to blood loss -EGD showing 3 columns of esophageal varices, mild portal hypertensive gastropathy without bleeding, G A[address] without bleeding in gastric antrum, mild, and possible Long's esophagus, no biopsies taken - has had extensive work up and evaluation by GI - frequent upper/lower GIB - requires frequent blood transfusions, last transfusion 03/26 -JKA antibodies Plan for today: > monitor 8. Hypothyroidism > Continue Synthroid 9. HLD > Continue YARD WORKER statin 10. HTN > Continue metoprolol 10. DMII tomorrow - YARD WORKER regimen: NPH 18u QD, Novolog 4u TID w/ meals > Continue YARD WORKER NPH, add on mid dose correction factor Fluids, electrolytes and Nutrition: IVF: no IVF Electrolytes: Monitor and replace PRN. Diet: Cardiac Diet Prophylaxis: DVT: SCD Stress ulcer: PPI Code status: Full Code Disposition: contiue on CV1, continue ICU management Patient discussed with Dr. Miner. Giovanni Brooks DO Internal Medicine PGY-1 Pager: [phone] Subjective Patient seen and examined. Doing well this morning. Breathing is improved on 2 L of oxygen now. Only complaint is secondary to diuretics. Denies headache, lightheadedness, dizziness, chest pain, chest tightness, shortness of breath, abdominal pain, diarrhea, fevers, chills. No acute events overnight. Did have one large dark colored bowel movement overnight. Medications Scheduled Meds: aspirin chewable tablet 81 mg 81 mg Oral QDAY cetirizine (ZYRTEC) tablet 10 mg 10 mg Oral QAM8 diltiazem CD (cardIZEM CD) capsule 180 mg 180 mg Oral QDAY folic acid (FOLVITE) tablet 1 mg 1 mg Oral QDAY heparin (porcine) injection 2,250-4,500 Units 20-40 Units/kg Intravenous As Prescribed insulin aspart U-100 (NOVOLOG FLEXPEN) injection PEN 0-14 Units 0-14 Units Subcutaneous ACHS insulin NPH (HUMULIN N KwikPen) injection PEN 18 Units 18 Units Subcutaneous QDAY(07) levothyroxine (SYNTHROID) tablet 175 mcg 175 mcg Oral QDAY 30 min before breakfast magnesium oxide (MAG-OX) tablet 400 mg 400 mg Oral BID magnesium sulfate 4 g/50 mL IVPB 2 g Intravenous ONCE melatonin tablet 5 mg 5 mg Oral QHS metoprolol tartrate (LOPRESSOR) tablet 100 mg 100 mg Oral BID nystatin (NYSTOP) topical powder Topical BID pantoprazole DR (PROTONIX) tablet 80 mg 80 mg Oral QDAY(21) rosuvastatin (CRESTOR) tablet 40 mg 40 mg Oral QDAY senna/docusate (SENOKOT-S) tablet 2 tablet 2 tablet Oral BID sucralfate (CARAFATE) tablet 1 g 1 g Oral QID warfarin (COUMADIN) tablet 2.5 mg 2.5 mg Oral QHS Continuous Infusions: furosemide (LASIX) 500 mg in 50 mL IV drip syr (max conc) 10 mg/hr ( 1232) heparin (porcine) 20,000 Units in dextrose 5% (D5W) 250 mL IV infusion (dbl conc) 1,570 Units/hr (04/04/18 1426) PRN and Respiratory Meds:acetaminophen Q6H PRN, hydrOXYzine TID PRN, nitroglycerin Q5 MIN PRN, ondansetron Q8H PRN, traMADol Q6H PRN, warfarin QHS AND warfarin, pharmacy to manage Per Pharmacy Review of Systems: A 14 point review of systems was negative except for: Discussed in subjective Objective: Vital Signs: Last Filed Vital Signs: 24 Hour Range BP: 120/54 (04/04 1200) Temp: 36.4 C (97.5 F) (04/04 1200) Pulse: 79 (04/04 1200) Respirations: 24 PER MINUTE (04/04 1200) SpO2: 98 % (04/04 1200) O2 Delivery: Nasal Cannula (04/04 1200) SpO2 Pulse: 79 (04/04 1200) BP: (102-143)/(44-68) Temp: [36.3 C (97.4 F)-36.5 C (97.7 F)] Pulse: [77-100] Respirations: [19 PER MINUTE-24 PER MINUTE] SpO2: [95 %-98 %] O2 Delivery: Nasal Cannula Intensity Pain Scale (Self Report): 6 (04/04/18 0400) Vitals: 04/02/18 0600 04/03/18 0500 04/04/18 0400 Weight: 112.4 kg (247 lb 12.8 oz) 109.1 kg (240 lb 9.6 oz) 110.5 kg (243 lb 9.6 oz) Intake/Output Summary: (Last 24 hours) Intake/Output Summary (Last 24 hours) at 04/04/18 1457 Last data filed at 04/04/18 1400 Gross per 24 hour Intake 1214.4 ml Output 4150 ml Net -2935.6 ml Stool Occurrence: 1 Physical Exam General: alert and oriented Eyes: Conjunctivae/corneas clear. EOMI bilaterally, no conjunctival injection Lungs: Crackles throughout lung jennings Heart: Regular rhythm, tachycardic, S1, S2 normal, no appreciable murmur Abdomen: Soft, non-tender. Bowel sounds normal. No masses. No organomegaly. Extremities: Bilateral lower extremities. 2+ pitting edema bilaterally, mildly worse on the left side, there is a scar assumably where the vein graft was harvested, erythema improved, without any purulence noted Skin: Scar on left leg from saphenous vein graft without purulence, there is erythema, warmth is equal bilaterally Neurologic: CNII - XII intact. Normal strength, sensation and reflexes throughout. Psych: normal mood and affect Lab Review 24-hour labs: Results for orders placed or performed during the hospital encounter of (from the past 24 hour(s)) POC GLUCOSE Collection Time: 04/03/18 4:54 PM Result Value Ref Range Glucose, POC 180 (H) 70 - 100 MG/DL POC GLUCOSE Collection Time: 04/03/18 7:53 PM Result Value Ref Range Glucose, POC 127 (H) 70 - 100 MG/DL HEMOGLOBIN & HEMATOCRIT Collection Time: 04/03/18 8:11 PM Result Value Ref Range Hemoglobin 8.1 (L) 12.0 - 15.0 GM/DL Hematocrit 24.1 (L) 36 - 45 % POC GLUCOSE Collection Time: 04/03/18 8:55 PM Result Value Ref Range Glucose, POC 133 (H) 70 - 100 MG/DL PROTIME INR (PT) Collection Time: 04/04/18 4:34 AM Result Value Ref Range INR 1.4 (H) 0.8 - 1.2 PTT (APTT) Collection Time: 04/04/18 4:34 AM Result Value Ref Range APTT 105.4 (H) 20.0 - 36.0 SEC CBC Collection Time: 04/04/18 4:34 AM Result Value Ref Range White Blood Cells 4.6 4.5 - 11.0 K/UL RBC 2.55 (L) 4.0 - 5.0 M/UL Hemoglobin 8.1 (L) 12.0 - 15.0 GM/DL Hematocrit 24.9 (L) 36 - 45 % MCV 97.6 80 - 100 FL MCH 31.8 26 - 34 PG MCHC 32.6 32.0 - 36.0 G/DL RDW 18.7 (H) 11 - 15 % Platelet Count 146 (L) 150 - 400 K/UL MPV 8.1 7 - 11 FL BASIC METABOLIC PANEL Collection Time: 04/04/18 4:34 AM Result Value Ref Range Sodium 137 137 - 147 MMOL/L Potassium 3.4 (L) 3.5 - 5.1 MMOL/L Chloride 98 98 - 110 MMOL/L CO2 33 (H) 21 - 30 MMOL/L Anion Gap 6 3 - 12 Glucose 133 (H) 70 - 100 MG/DL Blood Urea Nitrogen 50 (H) 7 - 25 MG/DL Creatinine 1.50 (H) 0.4 - 1.00 MG/DL Calcium 9.4 8.5 - 10.6 MG/DL eGFR Non 35 (L) >60 mL/min eGFR 43 (L) >60 mL/min MAGNESIUM Collection Time: 04/04/18 4:34 AM Result Value Ref Range Magnesium 1.7 1.6 - 2.6 mg/dL POC GLUCOSE Collection Time: 04/04/18 6:53 AM Result Value Ref Range Glucose, POC 138 (H) 70 - 100 MG/DL POC GLUCOSE Collection Time: 04/04/18 1:22 PM Result Value Ref Range Glucose, POC 150 (H) 70 - 100 MG/DL Point of Care Testing (Last 24 hours) Glucose: (!) 133 (04/04/18 7574) POC Glucose (Download): (!) 150 (04/04/18 1322) Radiology and other Diagnostics Review: CT head April 01, 2018 No acute intracranial hemorrhage or mass effect. Chest x-ray April 03, 2018 Impression: No significant change in appearance of chest with stable postoperative mediastinal configuration, cardiomegaly, left pleural effusion with associated left lung consolidation as described. Stable mild central venous congestion. Giovanni Brooks DO Internal Medicine PGY 1 Pager [phone] Associated attestation - Deepak Miner MD - 04/04/2018 7:18 PM CDT Cardiology Staff Note Ms. Fields continues to improve. She was -2.6 L for last 24 hours, -5.0 L for the hospitalization. Creatinine continues to improve, is down to 1.5 from 1.9 yesterday. Chest x-ray still looks fairly similar. Her O2 requirement is down to 2 L. We are going to stop the doxycycline for her treated cellulitis today. I think we will continue the Lasix drip today. I am hopeful will be back on room air tomorrow. Her heart rate has been controlled on diltiazem and metoprolol. We are on both Coumadin and heparin drip. The INR today was 1.4. ATTESTATION I personally performed the dempsey portions of the E/M visit, discussed case with resident and concur with resident documentation of history, physical exam, assessment, and treatment plan unless otherwise noted. Staff name: Deepak Miner MD Date: 04/04/2018 * Yancy Stafford RN - 04/04/2018 2:33 PM CDT Patient arrived on unit via wheelchair accompanied by RN. Patient transferred to the bed with assistance x 2. Assessment completed, refer to flowsheet for details. Heparin, lasix, and magnesium sulfate infusing; see eMAR for details. Oriented to surroundings, call light within reach. Plan of care reviewed. Will continue to monitor and assess. * Wilfrido Marquez RN - 04/03/2018 11:46 PM CDT 04/04/18 0000 Unmeasurable Elimination Stool Occurrence 1 Stool Characteristics Stool Amount Large Stool Appearance Formed Stool Color Black (CV Fellow notified, H & H drawn tonight, Con. to monitor.) * Reilly Olivera - 04/03/2018 5:25 PM CDT Renal Progress Note Name: Lucrecia Fields Today's Date: 04/03/2018 Admission Date: 03/25/2018 LOS: 9 days Assessment and Plan Principal Problem: Atrial fibrillation with rapid ventricular response (HCC) Active Problems: Type 2 diabetes mellitus with circulatory disorder, without long-term 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 (HCC) PAF (paroxysmal atrial fibrillation) (HCC) Chronic gastrointestinal bleeding Transfusion-dependent anemia CAD (coronary artery disease), [place] coronary artery HLD (hyperlipidemia) Hypothyroidism DELROY (acute kidney injury) (HCC) Essential hypertension Pleural effusion on left Left leg cellulitis Long's esophagus Acute on chronic diastolic heart failure due to coronary artery disease (HCC) Lucrecia Fields is a 62 y.o. female s/p CABG admitted for dyspnea and volume overload. [place] -no significant CKD -renal ultrasound without hydronephrosis -no recent nephrotoxins -creatinine progressively increasing -I&O appear inaccurate -FeUrea 8% suggesting renal hypoperfusion Atrial flutter Leukocytosis CAD s/p CABG Anemia HTN Hyponatremia, hypervolemic Encephalopathy, likely related to hypercapnea Recommendations: -renal function continues to improve -CXR from today reviewed, pulmonary edema persistent -continue IV diuresis -strict I&O, standing daily wieght -please call with questions or concerns Reilly Olivera MD PGY-5 Nephrology Fellow Pager [phone] Subjective Lucrecia Fields is a 62 y.o. female no issues overnight, diuresing well, remains on oxygen, edema improving. Medications Medications MEDS aspirin 81 mg Oral QDAY cetirizine 10 mg Oral QAM8 diltiazem CD 180 mg Oral QDAY doxycycline 100 mg Oral BID folic acid 1 mg Oral QDAY heparin (porcine) 20-40 Units/kg Intravenous As Prescribed insulin aspart U-100 0-14 Units Subcutaneous ACHS insulin NPH 18 Units Subcutaneous QDAY(07) levothyroxine 175 mcg Oral QDAY 30 min before breakfast magnesium oxide 400 mg Oral BID melatonin 5 mg Oral QHS metoprolol tartrate 100 mg Oral BID nystatin Topical BID pantoprazole DR 80 mg Oral QDAY(21) rosuvastatin 40 mg Oral QDAY senna/docusate 2 tablet Oral BID sucralfate 1 g Oral QID warfarin 2.5 mg Oral QHS IV MEDS furosemide (LASIX) 500 mg in 50 mL IV drip syr (max conc) 10 mg/hr ( 1600) heparin (porcine) 20,000 Units in dextrose 5% (D5W) 250 mL IV infusion (dbl conc) 1,570 Units/hr (04/03/18 1151) Prn acetaminophen Q6H PRN 650 mg at 04/01/18 0826, hydrOXYzine TID PRN 25 mg at 04/03/18 0233, nitroglycerin Q5 MIN PRN, ondansetron Q8H PRN 8 mg at 0956, traMADol Q6H PRN 50 mg at 04/01/18 2126, warfarin QHS AND warfarin , pharmacy to manage Per Pharmacy Physical Exam Vital Signs: Last Filed In 24 Hours Vital Signs: 24 Hour Range BP: 135/60 (04/03 1600) Temp: 36.4 C (97.6 F) (04/03 1600) Pulse: 79 (04/03 1600) Respirations: 22 PER MINUTE (04/03 1600) SpO2: 98 % (10/20 1600) O2 Delivery: Nasal Cannula (04/03 1200) SpO2 Pulse: 79 (04/03 1600) BP: (106-148)/(40-87) Temp: [36.3 C (97.4 F)-36.7 C (98 F)] Pulse: [71-84] Respirations: [15 PER MINUTE-26 PER MINUTE] SpO2: [92 %-99 %] O2 Delivery: Nasal Cannula Intensity Pain Scale (Self Report): 7 (04/03/18 0400) Intake/Output Summary (Last 24 hours) at 04/03/18 1725 Last data filed at 04/03/18 1700 Gross per 24 hour Intake 614.4 ml Output 2575 ml Net -1960.6 ml Vitals: 04/01/18 0452 04/02/18 0600 04/03/18 0500 Weight: 111.6 kg (246 lb 0.5 oz) 112.4 kg (247 lb 12.8 oz) 109.1 kg (240 lb 9.6 oz) Gen: drowsy, mild respiratory distress HEENT: Sclera normal; MMM CV:+ JVD, regular rhythm Pulm: Clear to Auscultation bilateral, diminished GI: BS+ x4, non-tender to palpation Neuro: drowsy, moving all ext Ext: moderate ble edema, no clubbing or cyanosis Skin: no rash, dry Labs: Recent Labs 04/01/18 0750 04/01/18 1927 04/02/18 0520 04/03/18 0424 NA 132* 132* 132* 133* K 4.2 4.4 3.7 3.5 CL 98 98 97* 97* CO2 24 26 26 28 GAP 10 8 9 8 BUN 50* 53* 56* 54* CR 2.97* 2.94* 2.42* 1.91* GLU 160* 150* 164* 179* CA 9.6 9.3 9.1 9.1 MG 1.7 -- 1.7 1.8 Recent Labs 04/01/18 0750 04/01/18 2324 04/02/18 0520 04/02/18 1400 04/02/18 2104 04/03/18 0424 WBC 7.2 6.3 7.3 -- -- 5.1 HGB 9.1* 8.2* 8.3* -- -- 8.0* HCT 28.3* 25.5* 25.6* -- -- 24.6* PLTCT 196 187 193 -- -- 158 PTT -- 26.4 126.3* 88.1* 85.7* 96.4* Estimated Creatinine Clearance: 37.8 mL/min (A) (based on SCr of 1.91 mg/dL (H)) . Vitals: 04/01/18 0452 04/02/18 0600 04/03/18 0500 Weight: 111.6 kg (246 lb 0.5 oz) 112.4 kg (247 lb 12.8 oz) 109.1 kg (240 lb 9.6 oz) Recent Labs 03/31/18 2357 PHART 7.27* PO2ART 76* Associated attestation - Alyx Noland MBBS - 04/03/2018 9:00 PM CDT ATTESTATION I personally performed the history and the physical examination of the patient and discussed his management with the fellow (resident). I reviewed the fellow' s (residents) note and agree with the documented findings and plan of care. Staff name: Alyx Noland Date: 04/03/2018 * Giovanni Brooks DO - 04/03/2018 1:29 PM CDT General Progress Note Name: Lucrecia Norris Donnie Today's Date: 04/03/2018 Admission Date: 03/25/2018 LOS: 9 days Assessment/Plan: Principal Problem: Atrial fibrillation with rapid ventricular response (HCC) Active Problems: Type 2 diabetes mellitus with circulatory disorder, without long-term 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 (HCC) PAF (paroxysmal atrial fibrillation) (HCC) Chronic gastrointestinal bleeding Transfusion-dependent anemia CAD (coronary artery disease), [place] coronary artery HLD (hyperlipidemia) Hypothyroidism DELROY (acute kidney injury) (HCC) Essential hypertension Pleural effusion on left Left leg cellulitis Long's esophagus Acute on chronic diastolic heart failure due to coronary artery disease (HCC) Lucrecia Fields is a 62 y.o. female, the patient has a past medical history of Acquired hypothyroidism; Arthritis; Back pain; Bleeding disorder (HCC); Coronary artery disease; Diabetes mellitus (HCC); Hypertension; Stomach disorder ; and Vision decreased. presenting with shortness of breath, dizziness/ lightheadedness, chills, nausea, lower extremity swelling and palpitations. 1. Atrial fluter, not on AC - has had intermittent atrial flutter since CABG - not on AC due to history of GIB - has had palpitations for about 1 week prior to presentation, no CP or syncope - EKG on admission: atrial fibrillation, rate 98, no ST changes - GI and CTS consulted to discuss effusion and AC in setting of bleeding history - EGD showing 3 columns of esophageal varices, mild portal hypertensive gastropathy without bleeding, gave without bleeding and gastric antrum, mild, and possible Long's esophagus, no biopsies taken - Rates controlled on dilt and metoprolol 100 mg BID Plan for today: > Continue ASA and Metoprolol > diltiazem 45mg Q6hr, rates controlled > change to Diltiazem 180 mg daily > on heparin drip > starting warfarin 2.5mg tonight, monitor INR 2. Shortness of Breath/Lower extremity swelling, concern for DVT, volume overload - LLE swelling greater than right since surgery - has history of DVT - BNP 327 on admission - CXR with persistent left sided pleural effusion - IR drain and Chest tube on left side -CTS okay with anticoagulation while chest tube is in place -Chest x-ray worse overnight showing increased pulmonary vascular congestion -Net even over last 24 hours despite aggressive diuretic use -I/O not accurate -Refusing BiPAP, 3L nasal canula now Plan for today: > Continue Lasix drip 10mg/hr and intermittent boluses > Encourage BiPAP > 500 diuril today 3. Acute kidney injury, improving -FE urea 8.4%, consistent with prerenal etiology -Improving with diuresis, consistent with cardiorenal syndrome -Renal ultrasound unremarkable: Urine output, oliguria -Changed amoxicillin to doxycycline -Urine eosinophils negative Plan: > Avoid nephrotoxic medications > Nephrology consulted > continue diuresis 4. Altered mental status, improved -Hypercapnia versus uremia versus infectious -Has been lethargic and confused for the past 3 days now -Wanted to leave AMA multiple times Plan: >Diuresis with lasix drip >on doxycycline for LLE cellulitis 5. Cellulitis of lower extremity, left - Amoxicillin started on 03/26, end 03/29 Plan: >continue doxycycline, end 04/04/18 6. CAD s/p CABG 02/16/18 - no chest pain, surgical scar well healing - trop/EKG negative for ischemia on admission Plan for today: > Continue ASA, BB > monitor 7. Anemia, normocytic, chronic blood loss, not due to postoperative complications, stable -Chronic secondary to blood loss -EGD showing 3 columns of esophageal varices, mild portal hypertensive gastropathy without bleeding, G A[address] without bleeding in gastric antrum, mild, and possible Long's esophagus, no biopsies taken - has had extensive work up and evaluation by GI - frequent upper/lower GIB - requires frequent blood transfusions, last transfusion 03/26 -JKA antibodies Plan for today: > monitor 8. Hypothyroidism > Continue Synthroid 9. HLD > Continue YARD WORKER statin 10. HTN > Continue metoprolol 10. 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 Diet: Cardiac Diet Prophylaxis: DVT: SCD Stress ulcer: PPI Code status: Full Code Disposition: contiue on CV1, continue ICU management Patient discussed with Dr. Miner. Giovanni Brooks DO Internal Medicine PGY-1 Pager: [phone] Subjective Patient seen and examined this morning. No acute events overnight. Received atarax this morning and was lethargic during my interview. Was more interactive later on in the morning. Still seemed to have some labored breathing. Medications Scheduled Meds: aspirin chewable tablet 81 mg 81 mg Oral QDAY cetirizine (ZYRTEC) tablet 10 mg 10 mg Oral QAM8 diltiazem CD (cardIZEM CD) capsule 180 mg 180 mg Oral QDAY doxycycline (VIBRAMYCIN) tablet 100 mg 100 mg Oral BID folic acid (FOLVITE) tablet 1 mg 1 mg Oral QDAY heparin (porcine) injection 2,250-4,500 Units 20-40 Units/kg Intravenous As Prescribed insulin aspart U-100 (NOVOLOG FLEXPEN) injection PEN 0-14 Units 0-14 Units Subcutaneous ACHS insulin NPH (HUMULIN N KwikPen) injection PEN 18 Units 18 Units Subcutaneous QDAY(07) levothyroxine (SYNTHROID) tablet 175 mcg 175 mcg Oral QDAY 30 min before breakfast magnesium oxide (MAG-OX) tablet 400 mg 400 mg Oral BID melatonin tablet 5 mg 5 mg Oral QHS metoprolol tartrate (LOPRESSOR) tablet 100 mg 100 mg Oral BID nystatin (NYSTOP) topical powder Topical BID pantoprazole DR (PROTONIX) tablet 80 mg 80 mg Oral QDAY(21) rosuvastatin (CRESTOR) tablet 40 mg 40 mg Oral QDAY senna/docusate (SENOKOT-S) tablet 2 tablet 2 tablet Oral BID sucralfate (CARAFATE) tablet 1 g 1 g Oral QID warfarin (COUMADIN) tablet 2.5 mg 2.5 mg Oral QHS Continuous Infusions: furosemide (LASIX) 500 mg in 50 mL IV drip syr (max conc) 10 mg/hr ( 1200) heparin (porcine) 20,000 Units in dextrose 5% (D5W) 250 mL IV infusion (dbl conc) 1,570 Units/hr (04/03/18 1151) PRN and Respiratory Meds:acetaminophen Q6H PRN, hydrOXYzine TID PRN, nitroglycerin Q5 MIN PRN, ondansetron Q8H PRN, traMADol Q6H PRN Review of Systems: A 14 point review of systems was negative except for: Discussed in subjective Objective: Vital Signs: Last Filed Vital Signs: 24 Hour Range BP: 119/55 (04/03 1200) Temp: 36.4 C (97.6 F) (04/03 1200) Pulse: 75 (04/03 1200) Respirations: 15 PER MINUTE (04/03 1200) SpO2: 99 % (04/03 1200) O2 Delivery: Nasal Cannula (04/03 1200) SpO2 Pulse: 75 (04/03 1200) BP: (106-148)/(40-87) Temp: [36.3 C (97.4 F)-36.7 C (98 F)] Pulse: [71-84] Respirations: [15 PER MINUTE-26 PER MINUTE] SpO2: [92 %-99 %] O2 Delivery: Nasal Cannula Intensity Pain Scale (Self Report): 7 (04/03/18 0400) Vitals: 04/01/18 0452 04/02/18 0600 04/03/18 0500 Weight: 111.6 kg (246 lb 0.5 oz) 112.4 kg (247 lb 12.8 oz) 109.1 kg (240 lb 9.6 oz) Intake/Output Summary: (Last 24 hours) Intake/Output Summary (Last 24 hours) at 04/03/18 1329 Last data filed at 04/03/18 1300 Gross per 24 hour Intake 494.4 ml Output 2425 ml Net -1930.6 ml Stool Occurrence: 1 Physical Exam General: lethargic Eyes: Conjunctivae/corneas clear. EOMI bilaterally, no conjunctival injection Lungs: Crackles throughout lung jennings Heart: Regular rhythm, tachycardic, S1, S2 normal, no appreciable murmur Abdomen: Soft, non-tender. Bowel sounds normal. No masses. No organomegaly. Extremities: Bilateral lower extremities. 2+ pitting edema bilaterally, mildly worse on the left side, there is a scar assumably where the vein graft was harvested, erythema improved, without any purulence noted Skin: Scar on left leg from saphenous vein graft without purulence, there is erythema, warmth is equal bilaterally Neurologic: CNII - XII intact. Normal strength, sensation and reflexes throughout. Psych: lethargic Lab Review 24-hour labs: Results for orders placed or performed during the hospital encounter of (from the past 24 hour(s)) PTT (APTT) Collection Time: 04/02/18 2:00 PM Result Value Ref Range APTT 88.1 (H) 20.0 - 36.0 SEC POC GLUCOSE Collection Time: 04/02/18 5:15 PM Result Value Ref Range Glucose, POC 170 (H) 70 - 100 MG/DL POC GLUCOSE Collection Time: 04/02/18 8:52 PM Result Value Ref Range Glucose, POC 192 (H) 70 - 100 MG/DL PTT (APTT) Collection Time: 04/02/18 9:04 PM Result Value Ref Range APTT 85.7 (H) 20.0 - 36.0 SEC CBC Collection Time: 04/03/18 4:24 AM Result Value Ref Range White Blood Cells 5.1 4.5 - 11.0 K/UL RBC 2.53 (L) 4.0 - 5.0 M/UL Hemoglobin 8.0 (L) 12.0 - 15.0 GM/DL Hematocrit 24.6 (L) 36 - 45 % MCV 97.2 80 - 100 FL MCH 31.6 26 - 34 PG MCHC 32.5 32.0 - 36.0 G/DL RDW 18.0 (H) 11 - 15 % Platelet Count 158 150 - 400 K/UL MPV 8.4 7 - 11 FL BASIC METABOLIC PANEL Collection Time: 04/03/18 4:24 AM Result Value Ref Range Sodium 133 (L) 137 - 147 MMOL/L Potassium 3.5 3.5 - 5.1 MMOL/L Chloride 97 (L) 98 - 110 MMOL/L CO2 28 21 - 30 MMOL/L Anion Gap 8 3 - 12 Glucose 179 (H) 70 - 100 MG/DL Blood Urea Nitrogen 54 (H) 7 - 25 MG/DL Creatinine 1.91 (H) 0.4 - 1.00 MG/DL Calcium 9.1 8.5 - 10.6 MG/DL eGFR Non 27 (L) >60 mL/min eGFR 32 (L) >60 mL/min MAGNESIUM Collection Time: 04/03/18 4:24 AM Result Value Ref Range Magnesium 1.8 1.6 - 2.6 mg/dL PTT (APTT) Collection Time: 04/03/18 4:24 AM Result Value Ref Range APTT 96.4 (H) 20.0 - 36.0 SEC POC GLUCOSE Collection Time: 04/03/18 6:24 AM Result Value Ref Range Glucose, POC 212 (H) 70 - 100 MG/DL POC GLUCOSE Collection Time: 04/03/18 11:46 AM Result Value Ref Range Glucose, POC 185 (H) 70 - 100 MG/DL Point of Care Testing (Last 24 hours) Glucose: (!) 179 (04/03/18 0421) POC Glucose (Download): (!) 185 (04/03/18 3932) Radiology and other Diagnostics Review: CT head April 01, 2018 No acute intracranial hemorrhage or mass effect. Chest x-ray April 03, 2018 Impression: No significant change in appearance of chest with stable postoperative mediastinal configuration, cardiomegaly, left pleural effusion with associated left lung consolidation as described. Stable mild central venous congestion. Giovanni Brooks DO Internal Medicine PGY 1 Pager [phone] Associated attestation - Deepak Miner MD - 04/03/2018 9:57 PM CDT Cardiology Staff Note Ms. Fields has improved over the last 24 hours. She is -1.9 L yesterday, and - 2.3 L for the hospitalization. Her O2 requirement has decreased. Her renal function continues to improve, her creatinine is down to 1.91. We will continue aggressive diuresis today, I think we will probably start seeing changes on the chest x-ray soon. I think you can start Coumadin tonight. Her last dose of doxycycline will be tomorrow. ATTESTATION I personally performed the dempsey portions of the E/M visit, discussed case with resident and concur with resident documentation of history, physical exam, assessment, and treatment plan unless otherwise noted. Staff name: Deepak Miner MD Date: 04/03/2018 * Scott Fajardo MD - 04/03/2018 7:24 AM CDT Critical Care Progress Note Today's Date: 04/03/2018 Name: Lucrecia Fields Admission Date: 03/25/2018 LOS: 9 days Assessment/Plan: Principal Problem: Atrial fibrillation with rapid ventricular response (HCC) Active Problems: Type 2 diabetes mellitus with circulatory disorder, without long-term 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 (HCC) PAF (paroxysmal atrial fibrillation) (HCC) Chronic gastrointestinal bleeding Transfusion-dependent anemia CAD (coronary artery disease), [place] coronary artery HLD (hyperlipidemia) Hypothyroidism DELROY (acute kidney injury) (HCC) Essential hypertension Pleural effusion on left Left leg cellulitis Long's esophagus Acute on chronic diastolic heart failure due to coronary artery disease (HCC) Lucrecia Fields is a 62-year-old female with a history of CAD status post CABG on with a PRIDE to LAD, SVG to OM and PLV, and SVG to PDA, PAF, hypertension , dyslipidemia, diabetes, hypothyroidism, CKD, and cellulitis. 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 She has not been anticoagulated for her atrial fib due to her bleeding issues. She also had a persistent left pleural effusion which is been present since her bypass surgery. Transferred to CCU for respiratory distress and AMS. Neuro: PRN pain meds Cardiac: HFpEF with recent CABG in February. ASA, dilt, metop, statin. Lasix gtt for volume overload with intermittent diuril. Volume status appears to be improving. Pulmonary: L pleural effusion with recent pig tail placed by IR. Never fully drained per review of CXRs. Removed on 03/31. Would not attempt to tap again at this point as appears stable. Pt refusing NiPPV despite repeated discussions with her regarding utility. Now weaned to 3L NC FEN: ADAT ID: On doxy for cellulitis through 04/04. Recently switched from Beta Lactam class on 03/29 out of concern for AIN as etiology of worsening renal Fx. Clinically cellulitis much improved. Renal: DELROY on CKD. Renal following. SCr improving at this time. Heme: Stable. 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 GI scoped recently and felt safe to anticoagulate. Heparin gtt Endo: Modified [place] Insulin Protocol, synthroid Prophylaxis: HOB>40, PPI, Therapeutic heparin gtt, Start Coumadin tonight Disposition/Family: Needs ICU for AMS, worsened respiratory status, renal failure. __ Subjective: Lucrecia Fields is a 62 y.o. female. Overnight Events: No new events noted. Patient sitting up in a chair this AM. POC discussed with patient and her at the bedside on AM rounds. Objective: Medications: Scheduled Meds: aspirin chewable tablet 81 mg 81 mg Oral QDAY cetirizine (ZYRTEC) tablet 10 mg 10 mg Oral QAM8 diltiazem CD (cardIZEM CD) capsule 180 mg 180 mg Oral QDAY doxycycline (VIBRAMYCIN) tablet 100 mg 100 mg Oral BID folic acid (FOLVITE) tablet 1 mg 1 mg Oral QDAY heparin (porcine) injection 2,250-4,500 Units 20-40 Units/kg Intravenous As Prescribed insulin aspart U-100 (NOVOLOG FLEXPEN) injection PEN 0-14 Units 0-14 Units Subcutaneous ACHS insulin NPH (HUMULIN N KwikPen) injection PEN 18 Units 18 Units Subcutaneous QDAY(07) levothyroxine (SYNTHROID) tablet 175 mcg 175 mcg Oral QDAY 30 min before breakfast magnesium oxide (MAG-OX) tablet 400 mg 400 mg Oral BID melatonin tablet 5 mg 5 mg Oral QHS metoprolol tartrate (LOPRESSOR) tablet 100 mg 100 mg Oral BID nystatin (NYSTOP) topical powder Topical BID pantoprazole DR (PROTONIX) tablet 80 mg 80 mg Oral QDAY() potassium chloride SR (K-DUR) tablet 60 mEq 60 mEq Oral ONCE rosuvastatin (CRESTOR) tablet 40 mg 40 mg Oral QDAY senna/docusate (SENOKOT-S) tablet 2 tablet 2 tablet Oral BID sucralfate (CARAFATE) tablet 1 g 1 g Oral QID Continuous Infusions: furosemide (LASIX) 500 mg in 50 mL IV drip syr (max conc) 10 mg/hr ( 0400) heparin (porcine) 20,000 Units in dextrose 5% (D5W) 250 mL IV infusion (dbl conc) 1,570 Units/hr (04/03/1814) PRN and Respiratory Meds:acetaminophen Q6H PRN, hydrOXYzine TID PRN, nitroglycerin Q5 MIN PRN, ondansetron Q8H PRN, traMADol Q6H PRN Vital Signs: Last Filed Vital Signs: 24 Hour Range BP: 122/51 (04/03 700) Temp: 36.4 C (97.5 F) (04/03 0400) Pulse: 75 (04/03 0700) Respirations: 26 PER MINUTE (04/03 06) SpO2: 92 % (04/03 700) O2 Delivery: Nasal Cannula (04/03 700) Weight: 109.1 kg (240 lb 9.6 oz) (04/03 0500) BP: (106-148)/(40-87) Temp: [36.4 C (97.5 F)-36.9 C (98.4 F)] Pulse: [75-87] Respirations: [18 PER MINUTE-30 PER MINUTE] SpO2: [92 %-98 %] O2 Delivery: Nasal Cannula Intensity Pain Scale (Self Report): (not recorded) Vitals: 04/01/18 0452 04/02/18 0600 04/03/18 0500 Weight: 111.6 kg (246 lb 0.5 oz) 112.4 kg (247 lb 12.8 oz) 109.1 kg (240 lb 9.6 oz) Critical Care Vitals: ICP Monitoring: PA Catheter: Hemodynamics/Oxycalcs: Intake/Output Summary: (Last 24 hours) Intake/Output Summary (Last 24 hours) at 04/03/18 0725 Last data filed at 04/03/18 0700 Gross per 24 hour Intake 730.89 ml Output 2600 ml Net -1869.11 ml Physical Exam: General: Mild distress, Appears stated age Lungs: Crackles bilaterally CV: RRR Abdomen: Soft, non-tender. Bowel sounds normal. No masses. No organomegaly. Extremities: Extremities normal, atraumatic, no cyanosis or edema Neurologic: CNII - XII intact. PERRL Prophylaxis Review: Lines: No Urinary Catheter: No Antibiotic Usage: Yes; Infection present or suspected: Wound/Skin/Tissue; Cellulitis VTE: Per Primary Lab Review: Pertinent labs reviewed Point of Care Testing: (Last 24 hours): Glucose: (!) 179 (04/03/18 0424) POC Glucose (Download): (!) 212 (04/03/18 0624) Radiology and Other Diagnostic Procedures Review: Pertinent radiology reviewed. I have seen, examined and reviewed data concerning this patient. I discussed the findings and plan of care with the ICU team. I spent 45 minutes in critical care time, excluding procedures today. Scott Fajardo MD Summer Intern Anesthesiology/Critical Care Medicine Pager: [phone] * Reilly Olivera - 04/02/2018 4:02 PM CDT Renal Progress Note Name: Lucrecia Fields Today's Date: 04/02/2018 Admission Date: 03/25/2018 LOS: 8 days Assessment and Plan Principal Problem: Atrial fibrillation with rapid ventricular response (HCC) Active Problems: Type 2 diabetes mellitus with circulatory disorder, without long-term 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 (HCC) PAF (paroxysmal atrial fibrillation) (HCC) Chronic gastrointestinal bleeding Transfusion-dependent anemia CAD (coronary artery disease), [place] coronary artery HLD (hyperlipidemia) Hypothyroidism DELROY (acute kidney injury) (HCC) Essential hypertension Pleural effusion on left Left leg cellulitis Long's esophagus Acute on chronic diastolic heart failure due to coronary artery disease (HCC) Lucrecia Fields is a 62 y.o. female s/p CABG admitted for dyspnea and volume overload. DELROY -no significant CKD -renal ultrasound without hydronephrosis -no recent nephrotoxins -creatinine progressively increasing -I&O appear inaccurate -FeUrea 8% suggesting renal hypoperfusion Atrial flutter Leukocytosis CAD s/p CABG Anemia HTN Hyponatremia, hypervolemic Encephalopathy, likely related to hypercapnea Recommendations: -renal function improving -patient continues to have signs of volume overload -continue IV diuresis -strict I&O, standing daily wieght -please call with questions or concerns Reilly Olivera MD PGY-5 Nephrology Fellow Pager [phone] Subjective Lucrceia Fields is a 62 y.o. female mental status much improved, requesting ativan for anxiety, no fever, no issues overnight. Medications Medications MEDS aspirin 81 mg Oral QDAY cetirizine 10 mg Oral QAM8 diltiazem CD 180 mg Oral QDAY doxycycline 100 mg Oral BID folic acid 1 mg Oral QDAY heparin (porcine) 20-40 Units/kg Intravenous As Prescribed insulin aspart U-100 0-14 Units Subcutaneous ACHS insulin NPH 18 Units Subcutaneous QDAY(07) levothyroxine 175 mcg Oral QDAY 30 min before breakfast magnesium oxide 400 mg Oral BID melatonin 5 mg Oral QHS metoprolol tartrate 100 mg Oral BID nystatin Topical BID pantoprazole DR 80 mg Oral QDAY(21) rosuvastatin 40 mg Oral QDAY senna/docusate 2 tablet Oral BID sucralfate 1 g Oral QID IV MEDS furosemide (LASIX) 500 mg in 50 mL IV drip syr (max conc) 10 mg/hr ( 1600) heparin (porcine) 20,000 Units in dextrose 5% (D5W) 250 mL IV infusion (dbl conc) 1,570 Units/hr (04/02/18 0845) Prn acetaminophen Q6H PRN 650 mg at 04/01/18 0826, hydrOXYzine TID PRN 25 mg at 04/01/18 2227, nitroglycerin Q5 MIN PRN, ondansetron Q8H PRN 8 mg at 0956, traMADol Q6H PRN 50 mg at 04/01/18 2126 Physical Exam Vital Signs: Last Filed In 24 Hours Vital Signs: 24 Hour Range BP: 124/60 (04/02 1500) Temp: 36.4 C (97.6 F) (04/02 1600) Pulse: 78 (04/02 1600) Respirations: 21 PER MINUTE (04/02 1600) SpO2: 94 % (04/02 1600) O2 Delivery: Nasal Cannula (04/02 1600) SpO2 Pulse: 78 (04/02 1600) BP: (103-148)/(42-69) Temp: [36.4 C (97.6 F)-37.1 C (98.8 F)] Pulse: [76-92] Respirations: [15 PER MINUTE-30 PER MINUTE] SpO2: [89 %-98 %] O2 Delivery: Nasal Cannula Intensity Pain Scale (Self Report): 6 (04/02/18 0000) Intake/Output Summary (Last 24 hours) at 04/02/18 1603 Last data filed at 04/02/18 1600 Gross per 24 hour Intake 1650.93 ml Output 2400 ml Net -749.07 ml Vitals: 04/01/18 0452 04/02/18 0600 04/02/18 1130 Weight: 111.6 kg (246 lb 0.5 oz) 112.4 kg (247 lb 12.8 oz) 100.5 kg (221 lb 9.6 oz) Gen: drowsy, mild respiratory distress HEENT: Sclera normal; MMM CV:+ JVD, regular rhythm Pulm: Clear to Auscultation bilateral, diminished GI: BS+ x4, non-tender to palpation Neuro: drowsy, moving all ext Ext: moderate ble edema, no clubbing or cyanosis Skin: no rash, dry Labs: Recent Labs 03/31/18 0350 03/31/18 1535 04/01/18 0750 04/01/18 1927 04/02/18 0520 NA 133* 131* 132* 132* 132* K 4.3 4.4 4.2 4.4 3.7 CL 99 99 98 98 97* CO2 23 24 24 26 26 GAP 11 8 10 8 9 BUN 48* 48* 50* 53* 56* CR 3.06* 3.10* 2.97* 2.94* 2.42* GLU 149* 142* 160* 150* 164* CA 9.3 9.6 9.6 9.3 9.1 ALBUMIN 3.4* 3.5 -- -- -- MG -- -- 1.7 -- 1.7 Recent Labs 03/31/18 0350 03/31/18 1535 04/01/18 0750 04/01/18 2324 04/02/18 0520 04/02/18 1400 WBC 10.9 -- 7.2 6.3 7.3 -- HGB 8.9* -- 9.1* 8.2* 8.3* -- HCT 27.4* -- 28.3* 25.5* 25.6* -- PLTCT 200 -- 196 187 193 -- PTT -- -- -- 26.4 126.3* 88.1* AST 14 14 -- -- -- -- ALT 5* 6* -- -- -- -- ALKPHOS 59 60 -- -- -- -- Estimated Creatinine Clearance: 28.5 mL/min (A) (based on SCr of 2.42 mg/dL (H)) . Vitals: 04/01/18 0452 04/02/18 0600 04/02/18 1130 Weight: 111.6 kg (246 lb 0.5 oz) 112.4 kg (247 lb 12.8 oz) 100.5 kg (221 lb 9.6 oz) Recent Labs 03/31/18 0445 03/31/18 2357 PHART 7.30* 7.27* PO2ART 76* 76* Associated attestation - Alyx Noland MBBS - 04/02/2018 6:33 PM CDT ATTESTATION I personally performed the history and the physical examination of the patient and discussed his management with the fellow (resident). I reviewed the fellow' s (residents) note and agree with the documented findings and plan of care. More alert this am. Stable hemodynamics. Renal function better with reasonable response to diuretics. Would continue with IV diuresis. Monitor K and replace as needed. Anticipate to see slow renal recovery. Staff name: Alyx Noland Date: 04/02/2018 * Giovanni Brooks DO - 04/02/2018 2:06 PM CDT General Progress Note Name: Lucrecia Fields Today's Date: 04/02/2018 Admission Date: 03/25/2018 LOS: 8 days Assessment/Plan: Principal Problem: Atrial fibrillation with rapid ventricular response (HCC) Active Problems: Type 2 diabetes mellitus with circulatory disorder, without long-term 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 (HCC) PAF (paroxysmal atrial fibrillation) (HCC) Chronic gastrointestinal bleeding Transfusion-dependent anemia CAD (coronary artery disease), [place] coronary artery HLD (hyperlipidemia) Hypothyroidism DELROY (acute kidney injury) (HCC) Essential hypertension Pleural effusion on left Left leg cellulitis Long's esophagus Acute on chronic diastolic heart failure due to coronary artery disease (HCC) Lucrecia Fields is a 62 y.o. female, the patient has a past medical history of Acquired hypothyroidism; Arthritis; Back pain; Bleeding disorder (HCC); Coronary artery disease; Diabetes mellitus (HCC); Hypertension; Stomach disorder ; and Vision decreased. presenting with shortness of breath, dizziness/ lightheadedness, chills, nausea, lower extremity swelling and palpitations. 1. Atrial fluter, not on AC - has had intermittent atrial flutter since CABG - not on AC due to history of GIB - has had palpitations for about 1 week prior to presentation, no CP or syncope - EKG on admission: atrial fibrillation, rate 98, no ST changes - GI and CTS consulted to discuss effusion and AC in setting of bleeding history - EGD showing 3 columns of esophageal varices, mild portal hypertensive gastropathy without bleeding, gave without bleeding and gastric antrum, mild, and possible Long's esophagus, no biopsies taken - Rates controlled on dilt and metoprolol 100 mg BID Plan for today: > Continue ASA and Metoprolol > diltiazem 45mg Q6hr, rates controlled > change to Diltiazem 180 mg daily > started heparin drip 2. Shortness of Breath/Lower extremity swelling, concern for DVT, volume overload - LLE swelling greater than right since surgery - has history of DVT - BNP 327 on admission - CXR with persistent left sided pleural effusion - IR drain and Chest tube on left side -CTS okay with anticoagulation while chest tube is in place -Chest x-ray worse overnight showing increased pulmonary vascular congestion -Net even over last 24 hours despite aggressive diuretic use -I/O not accurate -Started with 80 IV Lasix bolus, 5 mg IV Lasix drip, 120 IV Lasix bolus, 10 mg IV Lasix drip -Also received 500 chlorothiazide -Refusing BiPAP Plan for today: > Continue Lasix drip and intermittent boluses > Encourage BiPAP 3. Acute kidney injury -FE urea 8.4%, consistent with prerenal etiology -Improving with diuresis, consistent with cardiorenal syndrome -Renal ultrasound unremarkable: Urine output, oliguria -Changed amoxicillin to doxycycline -Urine eosinophils pending Plan: > Avoid nephrotoxic medications > Nephrology consulted 4. Altered mental status -Hypercapnia versus uremia versus infectious -Has been lethargic and confused for the past 3 days now -Wanted to leave AMA multiple times Plan: >BiPAP, repeat ABG >Diuresis with lasix drip >on doxycycline for LLE cellulitis 5. Cellulitis of lower extremity, left - Amoxicillin started on 03/26, end 03/29 Plan: >continue doxycycline, end 04/04/18 6. CAD s/p CABG 02/16/18 - no chest pain, surgical scar well healing - trop/EKG negative for ischemia on admission Plan for today: > Continue ASA, BB > monitor 7. 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 Hypothyroidism > Continue Synthroid 9. HLD > Continue YARD WORKER statin 10. HTN > Continue metoprolol 10. 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 Diet: Cardiac Diet Prophylaxis: DVT: SCD Stress ulcer: PPI Code status: Full Code Disposition: contiue on CV1, continue ICU management Patient discussed with Dr. Miner. Giovanni Brooks DO Internal Medicine PGY-1 Pager: [phone] Subjective Patient seen and examined this morning. No acute events overnight. CT head was negative and heparin drip was started. Did not want BiPAP consistently and frequently asked to go home. On 6 L nasal cannula this morning with accessory muscle use. Patient still denying shortness of breath. Does not seem to understand that her breathing issues are secondary to pulmonary vascular congestion. Denies headache, lightheadedness, dizziness, chest pain, chest tightness, shortness of breath, fevers, chills, nausea, vomiting, compact, diarrhea, constipation. Repeatedly asked if she could go home. Medications Scheduled Meds: aspirin chewable tablet 81 mg 81 mg Oral QDAY cetirizine (ZYRTEC) tablet 10 mg 10 mg Oral QAM8 diltiazem CD (cardIZEM CD) capsule 180 mg 180 mg Oral QDAY doxycycline (VIBRAMYCIN) tablet 100 mg 100 mg Oral BID folic acid (FOLVITE) tablet 1 mg 1 mg Oral QDAY heparin (porcine) injection 2,250-4,500 Units 20-40 Units/kg Intravenous As Prescribed insulin aspart U-100 (NOVOLOG FLEXPEN) injection PEN 0-14 Units 0-14 Units Subcutaneous ACHS insulin NPH (HUMULIN N KwikPen) injection PEN 18 Units 18 Units Subcutaneous QDAY(07) levothyroxine (SYNTHROID) tablet 175 mcg 175 mcg Oral QDAY 30 min before breakfast magnesium oxide (MAG-OX) tablet 400 mg 400 mg Oral BID melatonin tablet 5 mg 5 mg Oral QHS metoprolol tartrate (LOPRESSOR) tablet 100 mg 100 mg Oral BID nystatin (NYSTOP) topical powder Topical BID pantoprazole DR (PROTONIX) tablet 80 mg 80 mg Oral QDAY() rosuvastatin (CRESTOR) tablet 40 mg 40 mg Oral QDAY senna/docusate (SENOKOT-S) tablet 2 tablet 2 tablet Oral BID sucralfate (CARAFATE) tablet 1 g 1 g Oral QID Continuous Infusions: furosemide (LASIX) 500 mg in 50 mL IV drip syr (max conc) 10 mg/hr ( 1339) heparin (porcine) 20,000 Units in dextrose 5% (D5W) 250 mL IV infusion (dbl conc) 1,570 Units/hr (04/02/18 0845) PRN and Respiratory Meds:acetaminophen Q6H PRN, hydrOXYzine TID PRN, nitroglycerin Q5 MIN PRN, ondansetron Q8H PRN, traMADol Q6H PRN Review of Systems: A 14 point review of systems was negative except for: Discussed in subjective Objective: Vital Signs: Last Filed Vital Signs: 24 Hour Range BP: 123/45 (04/02 1200) Temp: 36.9 C (98.4 F) (04/02 1200) Pulse: 78 (04/02 1300) Respirations: 25 PER MINUTE (04/02 1300) SpO2: 97 % (04/02 1300) O2 Delivery: Nasal Cannula (04/02 1200) SpO2 Pulse: 78 (04/02 1300) BP: (103-148)/(42-69) Temp: [36.5 C (97.7 F)-37.1 C (98.8 F)] Pulse: [74-92] Respirations: [15 PER MINUTE-30 PER MINUTE] SpO2: [89 %-98 %] O2 Delivery: Nasal Cannula Intensity Pain Scale (Self Report): 6 (04/02/18 0000) Vitals: 04/01/18 0452 04/02/18 0600 04/02/18 1130 Weight: 111.6 kg (246 lb 0.5 oz) 112.4 kg (247 lb 12.8 oz) 100.5 kg (221 lb 9.6 oz) Intake/Output Summary: (Last 24 hours) Intake/Output Summary (Last 24 hours) at 04/02/18 1406 Last data filed at 04/02/18 1300 Gross per 24 hour Intake 1590.32 ml Output 2200 ml Net -609.68 ml Stool Occurrence: 1 Physical Exam General: Alert, mild distress, uncooperative, A&O x3 Eyes: Conjunctivae/corneas clear. EOMI bilaterally, no conjunctival injection Lungs: Clear to auscultation bilaterally decreased breath sounds on the left Heart: Regular rhythm, tachycardic, S1, S2 normal, no appreciable murmur Abdomen: Soft, non-tender. Bowel sounds normal. No masses. No organomegaly. Extremities: Bilateral lower extremities. 2+ pitting edema bilaterally, mildly worse on the left side, there is a scar assumably where the vein graft was harvested, erythema improved, without any purulence noted Skin: Scar on left leg from saphenous vein graft without purulence, there is erythema, warmth is equal bilaterally Neurologic: CNII - XII intact. Normal strength, sensation and reflexes throughout. Psych: A and O x3, argumentative Lab Review 24-hour labs: Results for orders placed or performed during the hospital encounter of (from the past 24 hour(s)) POC GLUCOSE Collection Time: 04/01/18 5:57 PM Result Value Ref Range Glucose, POC 143 (H) 70 - 100 MG/DL BASIC METABOLIC PANEL Collection Time: 04/01/18 7:27 PM Result Value Ref Range Sodium 132 (L) 137 - 147 MMOL/L Potassium 4.4 3.5 - 5.1 MMOL/L Chloride 98 98 - 110 MMOL/L CO2 26 21 - 30 MMOL/L Anion Gap 8 3 - 12 Glucose 150 (H) 70 - 100 MG/DL Blood Urea Nitrogen 53 (H) 7 - 25 MG/DL Creatinine 2.94 (H) 0.4 - 1.00 MG/DL Calcium 9.3 8.5 - 10.6 MG/DL eGFR Non 16 (L) >60 mL/min eGFR 20 (L) >60 mL/min POC GLUCOSE Collection Time: 04/01/18 9:12 PM Result Value Ref Range Glucose, POC 193 (H) 70 - 100 MG/DL CBC AND DIFF Collection Time: 04/01/18 11:24 PM Result Value Ref Range White Blood Cells 6.3 4.5 - 11.0 K/UL RBC 2.62 (L) 4.0 - 5.0 M/UL Hemoglobin 8.2 (L) 12.0 - 15.0 GM/DL Hematocrit 25.5 (L) 36 - 45 % MCV 97.4 80 - 100 FL MCH 31.3 26 - 34 PG MCHC 32.1 32.0 - 36.0 G/DL RDW 18.0 (H) 11 - 15 % Platelet Count 187 150 - 400 K/UL MPV 7.9 7 - 11 FL Neutrophils 72 41 - 77 % Lymphocytes 9 (L) 24 - 44 % Monocytes 13 (H) 4 - 12 % Eosinophils 6 (H) 0 - 5 % Basophils 0 0 - 2 % Absolute Neutrophil Count 4.50 1.8 - 7.0 K/UL Absolute Lymph Count 0.60 (L) 1.0 - 4.8 K/UL Absolute Monocyte Count 0.80 0 - 0.80 K/UL Absolute Eosinophil Count 0.40 0 - 0.45 K/UL Absolute Basophil Count 0.00 0 - 0.20 K/UL PTT (APTT) Collection Time: 04/01/18 11:24 PM Result Value Ref Range APTT 26.4 20.0 - 36.0 SEC CBC Collection Time: 04/02/18 5:20 AM Result Value Ref Range White Blood Cells 7.3 4.5 - 11.0 K/UL RBC 2.63 (L) 4.0 - 5.0 M/UL Hemoglobin 8.3 (L) 12.0 - 15.0 GM/DL Hematocrit 25.6 (L) 36 - 45 % MCV 97.4 80 - 100 FL MCH 31.7 26 - 34 PG MCHC 32.5 32.0 - 36.0 G/DL RDW 18.3 (H) 11 - 15 % Platelet Count 193 150 - 400 K/UL MPV 8.3 7 - 11 FL BASIC METABOLIC PANEL Collection Time: 04/02/18 5:20 AM Result Value Ref Range Sodium 132 (L) 137 - 147 MMOL/L Potassium 3.7 3.5 - 5.1 MMOL/L Chloride 97 (L) 98 - 110 MMOL/L CO2 26 21 - 30 MMOL/L Anion Gap 9 3 - 12 Glucose 164 (H) 70 - 100 MG/DL Blood Urea Nitrogen 56 (H) 7 - 25 MG/DL Creatinine 2.42 (H) 0.4 - 1.00 MG/DL Calcium 9.1 8.5 - 10.6 MG/DL eGFR Non 20 (L) >60 mL/min eGFR 25 (L) >60 mL/min MAGNESIUM Collection Time: 04/02/18 5:20 AM Result Value Ref Range Magnesium 1.7 1.6 - 2.6 mg/dL PTT (APTT) Collection Time: 04/02/18 5:20 AM Result Value Ref Range APTT 126.3 (H) 20.0 - 36.0 SEC POC GLUCOSE Collection Time: 04/02/18 6:57 AM Result Value Ref Range Glucose, POC 174 (H) 70 - 100 MG/DL POC GLUCOSE Collection Time: 04/02/18 11:38 AM Result Value Ref Range Glucose, POC 189 (H) 70 - 100 MG/DL Point of Care Testing (Last 24 hours) Glucose: (!) 164 (04/02/18 0520) POC Glucose (Download): (!) 189 (04/02/18 8069) Radiology and other Diagnostics Review: CT head April 01, 2018 No acute intracranial hemorrhage or mass effect. Chest x-ray April 02, 2018 1. Persistent generalized cardiomegaly and persistent widening of the superior mediastinum with pulmonary vascular congestion and edema. 2. Persistent left pleural effusion and left basilar consolidation likely atelectasis. Giovanni Brooks DO Internal Medicine PGY 1 Pager [phone] Associated attestation - Deepak Miner MD - 04/02/2018 4:53 PM CDT Cardiology Staff Note Ms. Fields is continued to decline some of her therapies. She is no longer willing to use BiPAP. Her urine output is difficult to track, she would not agree to a Munoz. In any case she did have reasonable urine output, her creatinine continues to improve, it is down to 2.[address] head yesterday was negative for any acute findings. Her going to continue the Lasix drip with Diuril today. Hopefully we can continue to diurese her given her O2 requirement down. ATTESTATION I personally performed the dempsey portions of the E/M visit, discussed case with resident and concur with resident documentation of history, physical exam, assessment, and treatment plan unless otherwise noted. Staff name: Deepak Miner MD Date: 04/02/2018 * Farheen Maya - 04/02/2018 1:54 PM CDT CLINICAL NUTRITION Clinical Nutrition Re-Eval Summary NAME:Lucrecia Fields :1955 AGE: 62 y.o. ADMISSION DATE: 03/25/2018 DAYS ADMITTED: LOS: 8 days Nutrition Assessment of Patient: BMI Categories Adult: Obesity Class III: 40 and over Current Oral Intake: Adequate Estimated Calorie Needs: 2721-6591 kcal/day (22-25 kcal/kg DBW) Estimated Protein Needs: 80 g/day (1.2 g/kg DBW) Oral Diet Order: Cardiac, Diabetic 4107-6636 Kcal/day (60 g Carb/meal, 30 g Carb /HS snack) Comments: Lucrecia Fields is a 62-year-old female with a history of CAD status post CABG on with a PRIDE to LAD, SVG to OM and PLV, and SVG to PDA, PAF, hypertension , dyslipidemia, diabetes, hypothyroidism, CKD, and cellulitis. 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 She has not been anticoagulated for her atrial fib due to her bleeding issues. She also had a persistent left pleural effusion which is been present since her bypass surgery. Transferred to CCU for respiratory distress and AMS. Pt continues with agitation and confusion, not appropriate for interview. She appears to be eating adequately on a cardiac/diabetic diet, consuming 50-100% of recent meals. No GI complaints expressed. LBM was 04/01. Wt is -1.4 kg since admission. Per chart review, pt appears to have lost ~20 lbs from October to January of this year, wts stable since then. Unclear if wt loss was intentional or unintentional but per MST screening score, pt denied unintentional wt loss. Pt with DELROY, Renal following, no indication for HD. Pitting 2+ BLE/BUE edema noted. Lasix onboard. No pressure injuries noted. A1c was 7.1 02/12/18 and FSBS ranging from 137-241 mg/dL thus far this admission. Not currently at nutritional risk. Will re-eval early to determine if pt is more appropriate for interview/education. Recommendation: Recommend Cardiac + 45 g CHO/meal diet. JAY Butterfield-NDTR Phone: [phone] Pager: [phone] * QianJeffLakeisha, PT - 04/02/2018 11:04 AM CDT PHYSICAL THERAPY RE-ASSESSMENT MOBILITY: Mobility Progressive Mobility Level: Active transfer to chair Level of Assistance: Assist X2 Assistive Device: Hand Held Time Tolerated: 11-30 minutes Activity Limited By: Fatigue;Weakness SUBJECTIVE: Subjective Significant hospital events: s/p CABG/MAZE/ ligation SETH on Dr. Pal on admitted 03/25/18 with atrial fibrillation and left pleural effusion. Chest tube placed 03/26. rapid responded 04/01 and tranaferred to cic Mental / Cognitive Status: Alert;Cooperative;Follows Commands Persons Present: Physical Therapist;Spouse Pain: Patient has no complaint of pain Ambulation Assist: Independent Mobility at Household Level without Device Patient Owned Equipment: None Home Situation: Lives with Family Type of Home: House Entry Stairs: Ramp In-Home Stairs: Able to Live on One Level BED MOBILITY/TRANSFERS: Bed Mobility/Transfers Bed Mobility: Supine to Sit: Minimal Assist;Head of Bed Elevated;Assist with Trunk Comments: Patient very anxious about knees buckling Transfer Type: Sit to Stand (3 repetitions) Transfer: Assistance Level: To/From;Bed;Minimal Assist;x2 People Transfer: Assistive Device: None Transfers: Type Of Assistance: For Safety Considerations;Verbal Cues BALANCE: Balance Sitting Balance: Static Sitting Balance;Dynamic Sitting Balance;Standby Assist; Even Surface GAIT: Comments: Did not attempt ambulation patient very anxious about her knees possibly buckling ACTIVITY/EXERCISE: Activity / Exercise Sit Edge Of Bed: 7 minutes Sit Edge Of Bed Assist: Stand By Assist Stand At Bedside : 1 minutes Stand At Bedside Assist: Minimal Assist;x2 People EDUCATION: Education Persons Educated: Patient/Family Patient Barriers To Learning: None Noted Interventions: Repetition of Instructions;Family Education Teaching Methods: Verbal Instruction Patient Response: Verbalized Understanding;More Instruction Required Topics: Plan/Goals of PT Interventions;Mobility Progression;Safety Awareness;Up with Assist Only;Importance of Increasing Activity;Ambulate With Nursing; Recommend Continued Therapy ASSESSMENT/PROGRESS: Assessment/Progress Impaired Mobility Due To: Decreased Activity Tolerance;Safety Concerns;Impaired Balance;Decreased Strength Assessment/Progress: Should Improve w/ Continued PT AM-PAC 6 Clicks Basic Mobility Inpatient Turning from your back to your side while in a flat bed without using bed rails : A Little Moving from lying on your back to sitting on the side of a flatbed without using bedrails : A Little Moving to and from a bed to a chair (including a wheelchair): A Little Standing up from a chair using your arms (e.g. wheelchair, or bedside chair): A Little To walk in hospital room: A Little Climbing 3-5 steps with a railing: A Lot Raw Score: 17 Standardized (T-scale) Score: 39.67 Basic Mobility CMS 0-100%: 43.83 CMS G Code Modifier for Basic Mobility: CK GOALS: Goals Goal Formulation: With Patient Time For Goal Achievement: 5 days Pt Will Go Supine To/From Sit: Independently Pt Will Transfer Bed/Chair: Independently Pt Will Transfer Sit to Stand: Independently Pt Will Ambulate: 101-150 Feet, w/ No Device, w/ Stand By Assist PLAN: Treatment Interventions: Mobility Training;Endurance Training Plan Frequency: 5 Days per Week PT Plan for Next Visit: work on bed mobility, transfers, and attempt ambulation next session with chair follow RECOMMENDATIONS: PT Discharge Recommendations PT Discharge Recommendations: Inpatient Setting Therapist: Lakeisha Laughlin PT, DPT Date: 04/02/2018 * Leida Montoya 04/02/2018 11:04 AM CDT OCCUPATIONAL THERAPY RE-ASSESSMENT NOTE Patient Name: Lucrecia Fields Room/Bed: [place] [address] Admitting Diagnosis: Past Medical History: Diagnosis Date Acquired hypothyroidism Arthritis Back pain Bleeding disorder (HCC) CAD (coronary artery disease), [place] coronary artery 02/16/2018 Chronic diastolic heart failure (HCC) 03/31/2018 Coronary artery disease Diabetes mellitus (HCC) Type II Essential hypertension 02/23/2018 Hypertension Stomach disorder Vision decreased Mobility Progressive Mobility Level: Active transfer to chair Level of Assistance: Assist X2 Assistive Device: Hand Held Time Tolerated: 11-30 minutes Activity Limited By: Fatigue;Weakness Subjective Pertinent Dx per Physician: s/p CABG/MAZE/ ligation SETH on Dr. Pal on 02/16/18 admitted 03/25/18 with atrial fibrillation and left pleural effusion. Chest tube placed 03/26. Transferred to [facility] 04/01 for respiratory concerns. Precautions: Falls;O2 Requirement Pain / Complaints: Patient agrees to participate in therapy;Patient has no c/o pain Objective Psychosocial Status: Willing and Cooperative to Participate Persons Present: Physical Therapist;Spouse Home Living Type of Home: House Home Layout: One Level;Ramped Entrance Prior Function Level Of [place]: Independent with ADLs and functional transfers Lives With: Spouse Other Function Comments: Spouse in power scooter. Patient states she was not having difficulty with ADLS or mobility at home since CABG ADL's Where Assessed: Edge of Bed;Chair Toileting Assist: Maximum Assist Toileting Deficits: Perineal Hygiene Functional Transfer Assist: Minimal Assist (x2) Comment: Required minimal assist for supine to sit. Stood for standing weight with minimal assist of 2. Stood and took steps to chair with minimal hand hold assist of 2. Stood from chair with minimal assist of 2 and RN completed perineal care. Activity Tolerance Endurance: 2/5 Tolerates 10-20 Minutes Exercise w/Multiple Rests Sitting Balance: 3+/5 Sits w/o UE Support for 30 Seconds or Greater Cognition Overall Cognitive Status: WFL to Adequately Complete Self Care Tasks Safely Education Persons Educated: Patient Teaching Methods: Verbal Instruction Patient Response: Verbalized Understanding Topics: Role of OT, Goals for Therapy Goal Formulation: With Patient Assessment Assessment: Decreased ADL Status;Decreased Endurance;Decreased Self-Care Trans; Decreased High-Level ADLs;Decreased UE Strength Prognosis: Good;w/Cont OT s/p Acute Discharge Goal Formulation: Patient Comments: Patient self limiting requiring encouragement to participate and work towards getting to chair. Prior to ICU transfer, patient was ambulating in the hallway. Anticipate patient will continue to progress towards prior level of function with therapeutic intervention. AM-PAC 6 Clicks Daily Activity Inpatient Putting on and taking off regular lower body clothes?: A Lot Bathing (Including washing, rinsing, drying): A Lot Toileting, which includes using toilet, bedpan, or urinal: A Lot Putting on and taking off regular upper body clothing: A Lot Taking care of personal grooming such as brushing teeth: None Eating meals?: None Daily Activity Raw Score: 16 Standardized (t-scale) score: 35.96 CMS 0-100% Score: 53.32 CMS G Code Modifier: CK Plan Progress: Slow Progress, Medical Status Limitations OT Frequency: 5x/week OT Plan for Next Visit: Progress mobility to standing at sink for grooming with chair behind as needed. ADL Goals Patient Will Perform Grooming: Standing at Sink;w/ Stand By Assist Patient Will Perform Toileting: w/ Stand By Assist Functional Transfer Goals Pt Will Perform All Functional Transfers: w/ Stand By Assist OT Discharge Recommendations OT Discharge Recommendations: Inpatient Setting Equipment Recommendations: Too early to be determined Therapist: Leida Marley OTR/L Date: 04/02/2018 * Ling Dixon RT - 04/02/2018 9:32 AM CDT RT Adult Assessment Note NAME:Lucrecia Fields :1955 AGE: 62 y.o. ADMISSION DATE: 03/25/2018 DAYS ADMITTED: LOS: 8 days RT Treatment Plan: Protocol Plan: Procedures PEP Therapy: Place a nursing order for "IS Q1h While Awake" for any of Lung Expansion indicators PAP: Q4h PAP While Awake Oxygen/Humidity: O2 to keep SpO2 > 92% Monitoring: Pulse oximetry BID & PRN Additional Comments: Impressions of the patient: Somewhat sleepy but able to answer questions, encouraged to sit HOB up but patient refused. SOA on exertion. Intervention(s)/outcome(s): NIPPV on s/b at this time, patient vitals stable on 5 L NC Patient education that was completed: Lung expansion education Recommendations to the care team: Treat underlying causes, continue plan of care. Vital Signs: Pulse: 76 RR: 21 SpO2: 96 O2 Device: $$ O2 Device: Cannula Liter Flow: O2 Liter Flow: (S) 5 lpm O2%: Breath Sounds: Respiratory Effort: Respiratory Effort: Non-Labored;SOA (Short of Air) on Exertion * Scott Fajardo MD - 04/02/2018 7:16 AM CDT Critical Care Progress Note Today's Date: 04/02/2018 Name: Lucrecia Fields Admission Date: 03/25/2018 LOS: 8 days Assessment/Plan: Principal Problem: Atrial fibrillation with rapid ventricular response (HCC) Active Problems: Type 2 diabetes mellitus with circulatory disorder, without long-term 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 (HCC) PAF (paroxysmal atrial fibrillation) (HCC) Chronic gastrointestinal bleeding Transfusion-dependent anemia CAD (coronary artery disease), [place] coronary artery HLD (hyperlipidemia) Hypothyroidism DELROY (acute kidney injury) (HCC) Essential hypertension Pleural effusion on left Left leg cellulitis Long's esophagus Acute on chronic diastolic heart failure due to coronary artery disease (HCC) Lucrecia Fields is a 62-year-old female with a history of CAD status post CABG on with a PRIDE to LAD, SVG to OM and PLV, and SVG to PDA, PAF, hypertension , dyslipidemia, diabetes, hypothyroidism, CKD, and cellulitis. 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 She has not been anticoagulated for her atrial fib due to her bleeding issues. She also had a persistent left pleural effusion which is been present since her bypass surgery. Transferred to CCU for respiratory distress and AMS. Neuro: PRN pain meds Cardiac: HFpEF with recent CABG in February. ASA, dilt, metop, statin. Lasix gtt for volume overload with intermittent diuril. Pulmonary: L pleural effusion with recent pig tail placed by IR. Never fully drained per review of CXRs. Removed on 03/31. Would not attempt to tap again at this point as appears stable. Pt refusing NiPPV despite repeated discussions with her regarding utility. Now requiring 6L NC. FEN: ADAT ID: On doxy for cellulitis through 04/04. Recently switched from Beta Lactam class on 03/29 out of concern for AIN as etiology of worsening renal Fx. Clinically cellulitis much improved. Serum Cr improved this AM Renal: DELROY on CKD. Renal following. Unclear etiology of worsening renal Fx. Heme: Stable. 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 GI scoped recently and felt safe to anticoagulate. Heparin gtt started overnight. Endo: Modified [place] Insulin Protocol, synthroid Prophylaxis: HOB>40, PPI, Therapeutic heparin gtt Disposition/Family: Needs ICU for AMS, worsening respiratory status, renal failure. __ Subjective: Lucrecia Fields is a 62 y.o. female. Overnight Events: No new events noted. Patient not receptive to plan of care from medical team and continuously mentions the idea of leaving AMA. Refuses NiPPV and munoz cathter despite numerous discussions with her about utility in improving her respiratory status. has asked team privately for us to help keep his in the hospital until she is well enough to go home. Objective: Medications: Scheduled Meds: aspirin chewable tablet 81 mg 81 mg Oral QDAY cetirizine (ZYRTEC) tablet 10 mg 10 mg Oral QAM8 diltiazem (cardIZEM) tablet 45 mg 45 mg Oral Q6H doxycycline (VIBRAMYCIN) tablet 100 mg 100 mg Oral BID folic acid (FOLVITE) tablet 1 mg 1 mg Oral QDAY heparin (porcine) BOLUS for continuous inf (bag) 2,232-4,464 Units 20-40 Units/ kg Intravenous As Prescribed insulin aspart U-100 (NOVOLOG FLEXPEN) injection PEN 0-14 Units 0-14 Units Subcutaneous ACHS insulin NPH (HUMULIN N KwikPen) injection PEN 18 Units 18 Units Subcutaneous QDAY(07) levothyroxine (SYNTHROID) tablet 175 mcg 175 mcg Oral QDAY 30 min before breakfast melatonin tablet 5 mg 5 mg Oral QHS metoprolol tartrate (LOPRESSOR) tablet 100 mg 100 mg Oral BID nystatin (NYSTOP) topical powder Topical BID pantoprazole DR (PROTONIX) tablet 80 mg 80 mg Oral QDAY(21) rosuvastatin (CRESTOR) tablet 40 mg 40 mg Oral QDAY senna/docusate (SENOKOT-S) tablet 2 tablet 2 tablet Oral BID sucralfate (CARAFATE) tablet 1 g 1 g Oral QID Continuous Infusions: furosemide (LASIX) 500 mg in 50 mL IV drip syr (max conc) 10 mg/hr ( 0000) heparin (porcine) 20,000 units/D5W 500 mL infusion (std conc)(premade) Stopped (04/02/18 0652) PRN and Respiratory Meds:acetaminophen Q6H PRN, hydrOXYzine TID PRN, nitroglycerin Q5 MIN PRN, ondansetron Q8H PRN, traMADol Q6H PRN Vital Signs: Last Filed Vital Signs: 24 Hour Range BP: 103/42 (04/02 600) Temp: 37.1 C (98.8 F) (04/02 0400) Pulse: 79 (04/02 600) Respirations: 21 PER MINUTE (04/02 600) SpO2: 93 % (04/02 600) O2 Delivery: Nasal Cannula (04/02 600) BP: (103-148)/(42-78) Temp: [36.5 C (97.7 F)-37.1 C (98.8 F)] Pulse: [70-92] Respirations: [15 PER MINUTE-28 PER MINUTE] SpO2: [89 %-99 %] O2 Delivery: Nasal Cannula Intensity Pain Scale (Self Report): (not recorded) Vitals: 03/31/18 0500 03/31/18 1157 04/01/18 0452 Weight: 113 kg (249 lb 1.9 oz) 112.9 kg (249 lb) 111.6 kg (246 lb 0.5 oz) Critical Care Vitals: ICP Monitoring: PA Catheter: Hemodynamics/Oxycalcs: Intake/Output Summary: (Last 24 hours) Intake/Output Summary (Last 24 hours) at 04/02/18 0716 Last data filed at 04/02/18599 Gross per 24 hour Intake 1394 ml Output 1430 ml Net -36 ml Physical Exam: General: Mild distress, Appears stated age Lungs: Crackles bilaterally CV: RRR Abdomen: Soft, non-tender. Bowel sounds normal. No masses. No organomegaly. Extremities: Extremities normal, atraumatic, no cyanosis or edema Neurologic: CNII - XII intact. PERRL Prophylaxis Review: Lines: No Urinary Catheter: No Antibiotic Usage: Yes; Infection present or suspected: Wound/Skin/Tissue; Cellulitis VTE: Per Primary Lab Review: Pertinent labs reviewed Point of Care Testing: (Last 24 hours): Glucose: (!) 164 (04/02/18 0520) POC Glucose (Download): (!) 174 (04/02/18 0657) Radiology and Other Diagnostic Procedures Review: Pertinent radiology reviewed. I have seen, examined and reviewed data concerning this patient. I discussed the findings and plan of care with the ICU team. I spent 46 minutes in critical care time, excluding procedures today. Scott Fajardo MD Summer Intern Anesthesiology/Critical Care Medicine Pager: [phone] * Wilfrido Marquez RN - 04/02/2018 1:21 AM CDT 04/02/18 0117 Critical Care Vitals Adult Pulse 85 Pulse Source Monitored Monitored Rhythm Aflut PVC / Minute 1 /min. Respirations 17 PER MINUTE SpO2 Pulse 77 SpO2 (!) 89 % O2 Delivery RA ST Segment Monitoring ST-II -0.[address]-I [address]-V1 0.[address]-V2 0.[address]-V3 0.[address]-V4 [address]-V5 -0.[address]-V6 -0.[address]-III -0.[address]-AVR 0.[address]-AVL [address]-AVF -0.1 mm Pt. found to have taken off NIV mask because pt. stated, "It was beeping too much." RN attempted to assist pt. in putting NIV mask back on but pt. verbally and physically resisted this therapy stating, "I do not want this on right now. " RN provided remedial education on the purpose of the device and pt. stated, "No." Rn replaced NIV with 4 L NC device which pt. agreed to. Contiuing to monitor vital signs closely. * Wilfrido Marquez RN - 04/01/2018 9:48 PM CDT When Rn in pt.'s room passing medications. pt. described to Rn how she couldn't keep doing this. When questioned about the route cause of her distress, the pt. verbalized, "I just need some ativan or I'm leaving now." When consulted with medical team and medications reviewed, RN discussed medication changes with pt. Pt. refused one medication. Continuing to monitor. * Reilly Olivera - 04/01/2018 4:48 PM CDT Renal Progress Note Name: Lucrecia Fields Today's Date: 04/01/2018 Admission Date: 03/25/2018 LOS: 7 days Assessment and Plan Principal Problem: Atrial fibrillation with rapid ventricular response (HCC) Active Problems: Type 2 diabetes mellitus with circulatory disorder, without long-term 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 (HCC) PAF (paroxysmal atrial fibrillation) (HCC) Chronic gastrointestinal bleeding Transfusion-dependent anemia CAD (coronary artery disease), [place] coronary artery HLD (hyperlipidemia) Hypothyroidism DELROY (acute kidney injury) (HCC) Essential hypertension Pleural effusion on left Left leg cellulitis Long's esophagus Acute on chronic diastolic heart failure due to coronary artery disease (HCC) Lucrecia Fields is a 62 y.o. female s/p CABG admitted for dyspnea and volume overload. DELROY -no significant CKD -renal ultrasound without hydronephrosis -no recent nephrotoxins -creatinine progressively increasing -I&O appear inaccurate -FeUrea 8% suggesting renal hypoperfusion Atrial flutter Leukocytosis CAD s/p CABG Anemia HTN Hyponatremia, hypervolemic Recommendations: -renal function stable -continue IV diuresis -no indication for hemodialysis at this time -strict I&O, standing daily wieght -please call with questions or concerns Reilly Olivera MD PGY-5 Nephrology Fellow Pager [phone] Subjective Lucrecia Fields is a 62 y.o. female remains altered, transferred to CICU, munoz catheter being placed, blood cultures drawn. Medications Medications MEDS aspirin 81 mg Oral QDAY cetirizine 10 mg Oral QAM8 diltiazem 45 mg Oral Q6H doxycycline 100 mg Oral BID folic acid 1 mg Oral QDAY furosemide 60 mg Intravenous ONCE Followed by furosemide 60 mg Intravenous ONCE heparin (porcine) 5,000 Units Subcutaneous Q8H insulin aspart U-100 0-14 Units Subcutaneous ACHS insulin NPH 18 Units Subcutaneous QDAY(07) levothyroxine 175 mcg Oral QDAY 30 min before breakfast metoprolol tartrate 100 mg Oral BID nystatin Topical BID pantoprazole DR 80 mg Oral QDAY(21) rosuvastatin 40 mg Oral QDAY senna/docusate 2 tablet Oral BID sucralfate 1 g Oral QID IV MEDS furosemide (LASIX) 500 mg in 50 mL IV drip syr (max conc) 10 mg/hr ( 1537) Prn acetaminophen Q6H PRN 650 mg at 04/01/18 0826, hydrOXYzine TID PRN 25 mg at 03/30/18 1246, nitroglycerin Q5 MIN PRN, ondansetron Q8H PRN 8 mg at 0956, traMADol Q6H PRN 50 mg at 03/30/18 2114 Physical Exam Vital Signs: Last Filed In 24 Hours Vital Signs: 24 Hour Range BP: 143/67 (04/01 1600) Temp: 36.6 C (97.8 F) (04/01 1200) Pulse: 75 (04/01 1600) Respirations: 21 PER MINUTE (04/01 1600) SpO2: 96 % (04/01 1600) O2 Delivery: Nasal Cannula (04/01 1600) SpO2 Pulse: 74 (04/01 1600) BP: (103-148)/(42-78) Temp: [36.6 C (97.8 F)-36.9 C (98.4 F)] Pulse: [69-76] Respirations: [15 PER MINUTE-21 PER MINUTE] SpO2: [93 %-99 %] O2 Delivery: Nasal Cannula Intensity Pain Scale (Self Report): 5 (04/01/18 0930) Intake/Output Summary (Last 24 hours) at 04/01/18 1649 Last data filed at 04/01/18 1400 Gross per 24 hour Intake 201 ml Output 130 ml Net 71 ml Vitals: 03/31/18 0500 03/31/18 1157 04/01/18 0452 Weight: 113 kg (249 lb 1.9 oz) 112.9 kg (249 lb) 111.6 kg (246 lb 0.5 oz) Gen: drowsy, mild respiratory distress HEENT: Sclera normal; MMM CV:+ JVD, regular rhythm Pulm: Clear to Auscultation bilateral, diminished GI: BS+ x4, non-tender to palpation Neuro: drowsy, moving all ext Ext: moderate ble edema, no clubbing or cyanosis Skin: no rash, dry Labs: Recent Labs 03/30/18 0410 03/31/18 0350 03/31/18 1535 04/01/18 0750 NA 133* 133* 131* 132* K 4.4 4.3 4.4 4.2 CL 100 99 99 98 CO2 25 23 24 24 GAP 8 11 8 10 BUN 40* 48* 48* 50* CR 2.80* 3.06* 3.10* 2.97* GLU 207* 149* 142* 160* CA 9.2 9.3 9.6 9.6 ALBUMIN 3.2* 3.4* 3.5 -- MG -- -- -- 1.7 Recent Labs 03/30/18 0410 03/31/18 0350 03/31/18 1535 04/01/18 0750 WBC 7.0 10.9 -- 7.2 HGB 8.4* 8.9* -- 9.1* HCT 26.3* 27.4* -- 28.3* PLTCT 167 200 -- 196 AST 10 14 14 -- ALT 4* 5* 6* -- ALKPHOS 62 59 60 -- Estimated Creatinine Clearance: 24.6 mL/min (A) (based on SCr of 2.97 mg/dL (H)) . Vitals: 03/31/18 0500 03/31/18 1157 04/01/18 0452 Weight: 113 kg (249 lb 1.9 oz) 112.9 kg (249 lb) 111.6 kg (246 lb 0.5 oz) Recent Labs 03/31/18 0445 03/31/18 2357 PHART 7.30* 7.27* PO2ART 76* 76* Associated attestation - Alyx Noland MBBS - 04/01/2018 7:53 PM CDT ATTESTATION I personally performed the history and the physical examination of the patient and discussed his management with the fellow (resident). I reviewed the fellow' s (residents) note and agree with the documented findings and plan of care. Moved to the [facility] early this am. Lethargic and confused. Stable renal function with Cr to 3.0, Reported UO is unlikely to be accurate. No indication for HD. Agree with placing munoz catheter, Would continue diuresis with IV diuretics. Daily weight. Patient remains critically ill with DELROY, acute resp failure, acute encephalopathy and at high risk for significant morbidity and mortality. I spent 35 minutes of critical care time in the direct coordination & management of this patient's care. This includes time spent at the patient's bedside & on the unit, review of labs, imaging studies, telemetry and interpretation of hemodynamic data. This also includes management of fluids, electrolytes, acid- base and personal discussions with the cardiology and critical care teams. Staff name: Alyx Noland Date: 04/01/2018 * Toan Linda - 04/01/2018 3:31 PM CDT OCCUPATIONAL THERAPY NOTE Patient rapid responded this morning and transferred to CICU for change in medical status. Occupational therapy will continue to follow and provide intervention as indicated. Linda Joya OTR/L [id number] * Samantha Arriaga RN - 04/01/2018 2:00 PM CDT 1400- Dr. Fajardo notified that pt has not had any urine output since lasix bolus admin and gtt start. Will continue to monitor. 1615- Pt refusing re-attempt of munoz catheter placement/straight cath. Bladder scanning likely not accurate d/t panus. Ok to give lasix doses when able per Dr. Fajardo. 194- pt transported to CT with this RN and THOMPSON Fine with monitor and red box. Pt transported travel well without complications. 1999- pt return to [facility]. VSS. After CT scan pt refusing to have purewick replaced to track urine output. * Scott Fajardo MD - 04/01/2018 1:15 PM CDT Critical Care Progress Note Today's Date: 04/01/2018 Name: Lucrecia Fields Admission Date: 03/25/2018 LOS: 7 days Assessment/Plan: Principal Problem: Atrial fibrillation with rapid ventricular response (HCC) Active Problems: Type 2 diabetes mellitus with circulatory disorder, without long-term 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 (HCC) PAF (paroxysmal atrial fibrillation) (HCC) Chronic gastrointestinal bleeding Transfusion-dependent anemia CAD (coronary artery disease), [place] coronary artery HLD (hyperlipidemia) Hypothyroidism DELROY (acute kidney injury) (HCC) Essential hypertension Pleural effusion on left Left leg cellulitis Long's esophagus Acute on chronic diastolic heart failure due to coronary artery disease (HCC) Lucrecia Fields is a 62-year-old female with a history of CAD status post CABG on with a PRIDE to LAD, SVG to OM and PLV, and SVG to PDA, PAF, hypertension , dyslipidemia, diabetes, hypothyroidism, CKD, and cellulitis. 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 She has not been anticoagulated for her atrial fib due to her bleeding issues. She also had a persistent left pleural effusion which is been present since her bypass surgery. Transferred to CCU for respiratory distress and AMS. Neuro: PRN pain meds; Alert and oriented on arrival to CCU. Cardiac: HFpEF with recent CABG in February. ASA, dilt, metop, statin. Start lasix gtt for volume overload. Pulmonary: L pleural effusion with recent pig tail placed by IR. Never fully drained per review of CXRs. Removed on 03/31. Would not attempt to tap again at this point. Start NiPPV on arrival to ICU for hypercarbia (likely chronic) and pulmonary edema/increased WOB. FEN: NPO while on NiPPV but can have diet off mask intermittently. ID: On doxy for cellulitis. Recently switched from Beta Lactam class on 03/29 out of concern for AIN as etiology of worsening renal Fx. Clinically cellulitis much improved. Scr seems to be plat Renal: DELROY on CKD. Renal following. Unclear etiology of worsening renal Fx at this time. Appears to be peaking. Heme: Stable. 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 GI scoped recently and felt safe to anticoagulate. Endo: Modified [place] Insulin Protocol, synthroid Prophylaxis: HOB>40, PPI, DVT prophylaxis per primary team Disposition/Family: Needs ICU for AMS, worsening respiratory status, renal failure. __ Subjective: Lucrecia Fields is a 62 y.o. female. Overnight Events: No new events noted. Patient arrived to ICU alert and oriented. POC discussed with her and . Not agreeable to munoz as it was irritating her despite discussion about need for accurate I/Os. Was planning to leave AMA yesterday evening and this AM per documentation. Objective: Medications: Scheduled Meds: aspirin chewable tablet 81 mg 81 mg Oral QDAY cetirizine (ZYRTEC) tablet 10 mg 10 mg Oral QAM8 diltiazem (cardIZEM) tablet 45 mg 45 mg Oral Q6H doxycycline (VIBRAMYCIN) tablet 100 mg 100 mg Oral BID folic acid (FOLVITE) tablet 1 mg 1 mg Oral QDAY heparin (porcine) PF syringe 5,000 Units 5,000 Units Subcutaneous Q8H insulin aspart U-100 (NOVOLOG FLEXPEN) injection PEN 0-14 Units 0-14 Units Subcutaneous ACHS insulin NPH (HUMULIN N KwikPen) injection PEN 18 Units 18 Units Subcutaneous QDAY(07) levothyroxine (SYNTHROID) tablet 175 mcg 175 mcg Oral QDAY 30 min before breakfast magnesium sulfate 1 g/D5W 100 mL IVPB 1 g Intravenous ONCE metoprolol tartrate (LOPRESSOR) tablet 100 mg 100 mg Oral BID nystatin (NYSTOP) topical powder Topical BID pantoprazole DR (PROTONIX) tablet 80 mg 80 mg Oral QDAY(21) rosuvastatin (CRESTOR) tablet 40 mg 40 mg Oral QDAY senna/docusate (SENOKOT-S) tablet 2 tablet 2 tablet Oral BID sucralfate (CARAFATE) tablet 1 g 1 g Oral QID Continuous Infusions: furosemide (LASIX) 500 mg in 50 mL IV drip syr (max conc) 5 mg/hr (04/01/18 1259) PRN and Respiratory Meds:acetaminophen Q6H PRN, hydrOXYzine TID PRN, nitroglycerin Q5 MIN PRN, ondansetron Q8H PRN, traMADol Q6H PRN Vital Signs: Last Filed Vital Signs: 24 Hour Range BP: 123/64 (04/01 1200) Temp: 36.6 C (97.8 F) (04/01 1200) Pulse: 74 (04/01 1200) Respirations: 18 PER MINUTE (04/01 1200) SpO2: 99 % (04/01 121) O2 Delivery: Non Invasive Ventilation (CPAP) (04/01 121) Weight: 111.6 kg (246 lb 0.5 oz) (04/01 452) BP: (103-148)/(42-78) Temp: [36.6 C (97.8 F)-36.9 C (98.4 F)] Pulse: [69-76] Respirations: [15 PER MINUTE-18 PER MINUTE] SpO2: [93 %-99 %] O2 Delivery: Non Invasive Ventilation (CPAP) Intensity Pain Scale (Self Report): (not recorded) Vitals: 03/31/18 0500 03/31/18 1157 04/01/18 0452 Weight: 113 kg (249 lb 1.9 oz) 112.9 kg (249 lb) 111.6 kg (246 lb 0.5 oz) Critical Care Vitals: ICP Monitoring: PA Catheter: Hemodynamics/Oxycalcs: Intake/Output Summary: (Last 24 hours) Intake/Output Summary (Last 24 hours) at 04/01/18 1315 Last data filed at 04/01/18 1100 Gross per 24 hour Intake 500 ml Output 280 ml Net 220 ml Physical Exam: General: Mild distress, Appears stated age Lungs: Clear to auscultation bilaterally CV: RRR Abdomen: Soft, non-tender. Bowel sounds normal. No masses. No organomegaly. Extremities: Extremities normal, atraumatic, no cyanosis or edema Neurologic: CNII - XII intact. PERRL Prophylaxis Review: Lines: No Urinary Catheter: No Antibiotic Usage: Yes; Infection present or suspected: Wound/Skin/Tissue; Cellulitis VTE: Per Primary Lab Review: Pertinent labs reviewed Point of Care Testing: (Last 24 hours): Glucose: (!) 160 (04/01/18 0750) POC Glucose (Download): (!) 140 (04/01/18 1213) Radiology and Other Diagnostic Procedures Review: Pertinent radiology reviewed. I have seen, examined and reviewed data concerning this patient. I discussed the findings and plan of care with the ICU team. I spent 50 minutes in critical care time, excluding procedures today. Scott Fajardo MD Summer Intern Anesthesiology/Critical Care Medicine Pager: [phone] * Yobany Concepcion, PT - 04/01/2018 1:10 PM CDT PHYSICAL THERAPY NOTE Per chart review and team discussion, patient has transferred to the CICU this date. PT to hold this date and will follow-up with patient at a later time. Therapist: Yobany Concepcion, PT, DPT Date: 04/01/2018 * Giovanni Brooks DO - 04/01/2018 1:07 PM CDT General Progress Note Name: Lucrecia Fields Today's Date: 04/01/2018 Admission Date: 03/25/2018 LOS: 7 days Assessment/Plan: Principal Problem: Atrial fibrillation with rapid ventricular response (HCC) Active Problems: Type 2 diabetes mellitus with circulatory disorder, without long-term 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 (HCC) PAF (paroxysmal atrial fibrillation) (HCC) Chronic gastrointestinal bleeding Transfusion-dependent anemia CAD (coronary artery disease), [place] coronary artery HLD (hyperlipidemia) Hypothyroidism DELROY (acute kidney injury) (HCC) Essential hypertension Pleural effusion on left Left leg cellulitis Long's esophagus Acute on chronic diastolic heart failure due to coronary artery disease (HCC) Lucrecia Fields is a 62 y.o. female, the patient has a past medical history of Acquired hypothyroidism; Arthritis; Back pain; Bleeding disorder (HCC); Coronary artery disease; Diabetes mellitus (HCC); Hypertension; Stomach disorder ; and Vision decreased. presenting with shortness of breath, dizziness/ lightheadedness, chills, nausea, lower extremity swelling and palpitations. 1. Atrial fluter, not on AC - has had intermittent atrial flutter since CABG - not on AC due to history of GIB - has had palpitations for about 1 week prior to presentation, no CP or syncope - EKG on admission: atrial fibrillation, rate 98, no ST changes - GI and CTS consulted to discuss effusion and AC in setting of bleeding history - EGD showing 3 columns of esophageal varices, mild portal hypertensive gastropathy without bleeding, gave without bleeding and gastric antrum, mild, and possible Long's esophagus, no biopsies taken - Rates controlled on dilt Plan for today: > Continue ASA and Metoprolol > diltiazem 45mg Q6hr, rates controlled > starting heparin drip if CT Head negative > consider sotalol > considering TODD Thursday, with possible cardioversion > will likely opt for rate control only, lifetime warfarin is current plan > CT Head given altered mental status 2. Shortness of Breath/Lower extremity swelling, concern for DVT, volume overload - LLE swelling greater than right since surgery - has history of DVT - BNP 327 on admission - CXR with persistent left sided pleural effusion - IR drain and Chest tube on left side, 40 cc overnight -CTS okay with anticoagulation while chest tube is in place -Chest x-ray worse overnight showing increased pulmonary vascular congestion -Net positive 250 cc over last 24 hours -I/O not accurate Plan for today: > 80 IV Lasix in a.m., started lasix drip, intermittent diuril > Start BiPAP 3. Acute kidney injury -Likely combination of prerenal and intrinsic -Consistent with prerenal disease -Renal ultrasound unremarkable: Urine output, oliguria -Changed amoxicillin to doxycycline - Urine lytes, eosinophils, culture, CPK, uric acid, urine creatinine pending Plan: > Avoid nephrotoxic medications > Nephrology consult 4. Altered mental status -Hypercapnia versus uremia versus infectious versus delirium -Has been lethargic and confused for the past 3 days now -Wanted to leave AMA twice even after describing the severity of her illness Plan: >BiPAP, repeat ABG >Diuresis with lasix drip >on doxycycline for LLE cellulitis 5. Cellulitis of lower extremity, left - Amoxicillin started on 03/26, end 03/29 Plan: >continue doxycycline, end 04/04/18 6. CAD s/p CABG 02/16/18 - no chest pain, surgical scar well healing - trop/EKG negative for ischemia on admission Plan for today: > Continue ASA, BB > monitor 7. Anemia, normocytic, chronic blood loss, not due to postoperative complications -Chronic secondary to blood loss -EGD showing 3 columns of esophageal varices, mild portal hypertensive gastropathy without bleeding, G AVE without bleeding in gastric antrum, mild, and possible Long's esophagus, no biopsies taken - has had extensive work up and evaluation by GI - frequent upper/lower GIB - requires frequent blood transfusions, last transfusion 03/26 Plan for today: > monitor 8. Hypothyroidism > Continue Synthroid 9. HLD > Continue [employer]ARD [employer]ER statin 10. HTN > Continue metoprolol 10. 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 Diet: Cardiac Diet Prophylaxis: DVT: SCD Stress ulcer: PPI Code status: Full Code Disposition: contiue on CV1, transferred to ICU Patient discussed with Dr. Miner. Giovanni Brooks DO Internal Medicine PGY-1 Pager: [phone] Subjective Patient seen and examined this morning. During the evening she was given 0.5 mg of Ativan for agitation. Per nursing, she was only responsive to sternal rub later in the night. This morning upon examination patient was awake and again asking to go home. After another long discussion she was agreeable to go up to the ICU. Patient was alert and oriented this morning but unable to again answer why she was in the hospital. Patient denied any headache, nausea, vomiting, fevers, chills, chest pain, palpitations, chest tightness, shortness of breath, abdominal pain. She was very argumentative this morning, similar to the previous night. Medications Scheduled Meds: aspirin chewable tablet 81 mg 81 mg Oral QDAY cetirizine (ZYRTEC) tablet 10 mg 10 mg Oral QAM8 diltiazem (cardIZEM) tablet 45 mg 45 mg Oral Q6H doxycycline (VIBRAMYCIN) tablet 100 mg 100 mg Oral BID folic acid (FOLVITE) tablet 1 mg 1 mg Oral QDAY heparin (porcine) PF syringe 5,000 Units 5,000 Units Subcutaneous Q8H insulin aspart U-100 (NOVOLOG FLEXPEN) injection PEN 0-14 Units 0-14 Units Subcutaneous ACHS insulin NPH (HUMULIN N KwikPen) injection PEN 18 Units 18 Units Subcutaneous QDAY(07) levothyroxine (SYNTHROID) tablet 175 mcg 175 mcg Oral QDAY 30 min before breakfast magnesium sulfate 1 g/D5W 100 mL IVPB 1 g Intravenous ONCE metoprolol tartrate (LOPRESSOR) tablet 100 mg 100 mg Oral BID nystatin (NYSTOP) topical powder Topical BID pantoprazole DR (PROTONIX) tablet 80 mg 80 mg Oral QDAY(21) rosuvastatin (CRESTOR) tablet 40 mg 40 mg Oral QDAY senna/docusate (SENOKOT-S) tablet 2 tablet 2 tablet Oral BID sucralfate (CARAFATE) tablet 1 g 1 g Oral QID Continuous Infusions: furosemide (LASIX) 500 mg in 50 mL IV drip syr (max conc) 5 mg/hr (04/01/18 1259) PRN and Respiratory Meds:acetaminophen Q6H PRN, hydrOXYzine TID PRN, nitroglycerin Q5 MIN PRN, ondansetron Q8H PRN, traMADol Q6H PRN Review of Systems: A 14 point review of systems was negative except for: Discussed in subjective Objective: Vital Signs: Last Filed Vital Signs: 24 Hour Range BP: 123/64 (04/01 1200) Temp: 36.6 C (97.8 F) (04/01 1200) Pulse: 74 (04/01 1200) Respirations: 18 PER MINUTE (04/01 1200) SpO2: 99 % (04/01 1213) O2 Delivery: Non Invasive Ventilation (CPAP) (04/01 1213) SpO2 Pulse: 74 (04/01 1200) BP: (103-148)/(42-78) Temp: [36.6 C (97.8 F)-36.9 C (98.4 F)] Pulse: [69-76] Respirations: [15 PER MINUTE-18 PER MINUTE] SpO2: [93 %-99 %] O2 Delivery: Non Invasive Ventilation (CPAP) Intensity Pain Scale (Self Report): 5 (04/01/18 0930) Vitals: 03/31/18 0500 03/31/18 1157 04/01/18 0452 Weight: 113 kg (249 lb 1.9 oz) 112.9 kg (249 lb) 111.6 kg (246 lb 0.5 oz) Intake/Output Summary: (Last 24 hours) Intake/Output Summary (Last 24 hours) at 04/01/18 1307 Last data filed at 04/01/18 1100 Gross per 24 hour Intake 500 ml Output 280 ml Net 220 ml Stool Occurrence: 1 Physical Exam General: Alert, cooperative, no distress, appears stated age, uncomfortable Eyes: Conjunctivae/corneas clear. EOMI bilaterally, no conjunctival injection Lungs: Clear to auscultation bilaterally decreased breath sounds on the left Heart: Regular rhythm, tachycardic, S1, S2 normal, no appreciable murmur Abdomen: Soft, non-tender. Bowel sounds normal. No masses. No organomegaly. Extremities: Bilateral lower extremities. 1+ pitting edema bilaterally, mildly worse on the left side, there is a scar assumably where the vein graft was harvested, erythema improved, without any purulence noted Skin: Scar on left leg from saphenous vein graft without purulence, there is erythema, warmth is equal bilaterally Neurologic: CNII - XII intact. Normal strength, sensation and reflexes throughout. Psych: A and O x3, lethargic, slow to answer questions, argumentative Lab Review 24-hour labs: Results for orders placed or performed during the hospital encounter of (from the past 24 hour(s)) COMPREHENSIVE METABOLIC PANEL Collection Time: 03/31/18 3:35 PM Result Value Ref Range Sodium 131 (L) 137 - 147 MMOL/L Potassium 4.4 3.5 - 5.1 MMOL/L Chloride 99 98 - 110 MMOL/L Glucose 142 (H) 70 - 100 MG/DL Blood Urea Nitrogen 48 (H) 7 - 25 MG/DL Creatinine 3.10 (H) 0.4 - 1.00 MG/DL Calcium 9.6 8.5 - 10.6 MG/DL Total Protein 7.6 6.0 - 8.0 G/DL Total Bilirubin 0.7 0.3 - 1.2 MG/DL Albumin 3.5 3.5 - 5.0 G/DL Alk Phosphatase 60 25 - 110 U/L AST (SGOT) 14 7 - 40 U/L CO2 24 21 - 30 MMOL/L ALT (SGPT) 6 (L) 7 - 56 U/L Anion Gap 8 3 - 12 eGFR Non 15 (L) >60 mL/min eGFR 19 (L) >60 mL/min POC GLUCOSE Collection Time: 03/31/18 5:48 PM Result Value Ref Range Glucose, POC 173 (H) 70 - 100 MG/DL POC GLUCOSE Collection Time: 03/31/18 9:12 PM Result Value Ref Range Glucose, POC 160 (H) 70 - 100 MG/DL CULTURE-BLOOD W/SENSITIVITY Collection Time: 03/31/18 9:50 PM Result Value Ref Range Battery Name BLOOD CULTURE Specimen Description BLOOD RIGHT ANTECUBITAL Special Requests NONE Culture NO GROWTH 1 DAY Report Status LACTIC ACID (BG - RAPID LACTATE) Collection Time: 03/31/18 9:50 PM Result Value Ref Range Lactic Acid,BG 1.3 0.5 - 2.0 MMOL/L CULTURE-BLOOD W/SENSITIVITY Collection Time: 03/31/18 9:58 PM Result Value Ref Range Battery Name BLOOD CULTURE Specimen Description BLOOD LEFT ANTECUBITAL Special Requests NONE Culture NO GROWTH 1 DAY Report Status BLOOD GASES, ARTERIAL Collection Time: 03/31/18 11:57 PM Result Value Ref Range pH-Arterial 7.27 (L) 7.35 - 7.45 pCO2-Arterial 59 (H) 35 - 45 MMHG pO2-Arterial 76 (L) 80 - 100 MMHG Base Deficit-Arterial 0.8 MMOL/L O2 Sat-Arterial 95.0 95 - 99 % Tebqmhezumx-SXQ-Ort 23.7 21 - 28 MMOL/L BASIC METABOLIC PANEL Collection Time: 04/01/18 7:50 AM Result Value Ref Range Sodium 132 (L) 137 - 147 MMOL/L Potassium 4.2 3.5 - 5.1 MMOL/L Chloride 98 98 - 110 MMOL/L CO2 24 21 - 30 MMOL/L Anion Gap 10 3 - 12 Glucose 160 (H) 70 - 100 MG/DL Blood Urea Nitrogen 50 (H) 7 - 25 MG/DL Creatinine 2.97 (H) 0.4 - 1.00 MG/DL Calcium 9.6 8.5 - 10.6 MG/DL eGFR Non 16 (L) >60 mL/min eGFR 19 (L) >60 mL/min CBC AND DIFF Collection Time: 04/01/18 7:50 AM Result Value Ref Range White Blood Cells 7.2 4.5 - 11.0 K/UL RBC 2.88 (L) 4.0 - 5.0 M/UL Hemoglobin 9.1 (L) 12.0 - 15.0 GM/DL Hematocrit 28.3 (L) 36 - 45 % MCV 98.1 80 - 100 FL MCH 31.4 26 - 34 PG MCHC 32.0 32.0 - 36.0 G/DL RDW 18.9 (H) 11 - 15 % Platelet Count 196 150 - 400 K/UL MPV 8.2 7 - 11 FL Neutrophils 68 41 - 77 % Lymphocytes 14 (L) 24 - 44 % Monocytes 12 4 - 12 % Eosinophils 5 0 - 5 % Basophils 1 0 - 2 % Absolute Neutrophil Count 4.90 1.8 - 7.0 K/UL Absolute Lymph Count 1.00 1.0 - 4.8 K/UL Absolute Monocyte Count 0.90 (H) 0 - 0.80 K/UL Absolute Eosinophil Count 0.30 0 - 0.45 K/UL Absolute Basophil Count 0.10 0 - 0.20 K/UL MAGNESIUM Collection Time: 04/01/18 7:50 AM Result Value Ref Range Magnesium 1.7 1.6 - 2.6 mg/dL CREATINE KINASE-CPK Collection Time: 04/01/18 7:50 AM Result Value Ref Range Creatine Kinase 16 (L) 21 - 215 U/L URIC ACID Collection Time: 04/01/18 7:50 AM Result Value Ref Range Uric Acid 13.7 (H) 2.0 - 7.0 MG/DL POC GLUCOSE Collection Time: 04/01/18 8:25 AM Result Value Ref Range Glucose, POC 169 (H) 70 - 100 MG/DL URINALYSIS DIPSTICK REFLEX TO CULTURE Collection Time: 04/01/18 11:40 AM Result Value Ref Range Color,UA YELLOW Turbidity,UA 1+ (A) CLEAR-CLEAR Specific [place]-Urine 1.014 1.003 - 1.035 pH,UA 5.0 5.0 - 8.0 Protein,UA NEG NEG-NEG Glucose,UA NEG NEG-NEG Ketones,UA NEG NEG-NEG Bilirubin,UA NEG NEG-NEG Blood,UA NEG NEG-NEG Urobilinogen,UA NORMAL NORM-NORMAL Nitrite,UA NEG NEG-NEG Leukocytes,UA NEG NEG-NEG Urine Ascorbic Acid, UA NEG NEG-NEG URINALYSIS MICROSCOPIC REFLEX TO CULTURE Collection Time: 04/01/18 11:40 AM Result Value Ref Range WBCs,UA 0-2 0 - 2 /HPF RBCs,UA 0-2 0 - 3 /HPF Comment,UA Urine submitted for reflex culture if criteria are met:WBC>10, positive nitrite and/or >=1+ leukocyte esterase. If quantity is not sufficient, an addendum will follow. MucousUA TRACE Hyaline Cast 2-5 Amorphous Sedimate,UA FEW BLOOD GASES, PERIPHERAL VENOUS Collection Time: 04/01/18 11:55 AM Result Value Ref Range pH-Venous 7.24 (L) 7.30 - 7.40 PCO2-Venous 65 (H) 36 - 50 MMHG PO2-Venous 44 33 - 48 MMHG Base Deficit-Venous 0.9 MMOL/L O2 Sat-Venous 74.1 (H) 55 - 71 % Kuyozyaczkz-FRW-Rfz 23.4 MMOL/L POC GLUCOSE Collection Time: 04/01/18 12:13 PM Result Value Ref Range Glucose, POC 140 (H) 70 - 100 MG/DL Point of Care Testing (Last 24 hours) Glucose: (!) 160 (04/01/18 0750) POC Glucose (Download): (!) 140 (04/01/18 1213) Radiology and other Diagnostics Review: Chest x-ray 04/01/18 1. Persistent marked enlargement of the cardiac silhouette with pulmonary edema. 2. Stable left pleural effusion and left basilar consolidation, likely Atelectasis. CT head pending Giovanni Brooks DO Internal Medicine PGY 1 Pager [phone] Associated attestation - Deepak Miner MD - 04/01/2018 2:51 PM CDT Cardiology Staff Note Ms. Fields was still having increased work of breathing today. She was seen by the overnight team. Her ABG last night showe 7.2 . She had 2 sets of blood cultures that were negative.d output was not accurate, I think she is probably had more urine output listed. Her creatinine is stable. Her chest x- ray today is unchanged. She remains in atrial fib though her rates are controlled on p.o. diltiazem and metoprolol. I am very concerned about Ms. Fields's respiratory status. Going to transfer her up to the CICU today. We are going to place her on a Lasix drip. I am going to get a CT of the head given the confusion, though I think it is metabolic in origin. If the CT heads okay I think we will go ahead and start her on a heparin drip. I am going to plan on continuing rate control for now. ATTESTATION I personally performed the dempsey portions of the E/M visit, discussed case with resident and concur with resident documentation of history, physical exam, assessment, and treatment plan unless otherwise noted. Staff name: Deepak Miner MD Date: 04/01/2018 * Samantha Arriaga RN - 04/01/2018 12:37 PM CDT Patient arrived to room # (HC905*) via bed accompanied by RN. Patient transferred to the bed with assistance. Bedside safety checks completed. Initial patient assessment completed, refer to flowsheet for details. Admission skin assessment completed by: THOMPSON Singh and THOMPSON Barrios Pressure Injury Present on Hospital Admission (within 24 hours): No 1. Occiput: No 2. Ear: No 3. Scapula: No 4. Spinous Process: No 5. Shoulder: No 6. Elbow: No 7. Iliac Crest: No 8. Sacrum/Coccyx: No 9. Ischial Tuberosity: No 10. Trochanter: No 11. Knee: No 12. Malleolus: No 13. Heel: No 14. Toes: No 15. Assessed for device associated injury Yes 16. Nursing Nutrition Assessment Completed Yes See Doc Flowsheet for additional wound details. INTERVENTIONS: * Samantha Arriaga RN - 04/01/2018 10:00 AM CDT Patient arrived on unit via bed accompanied by RN. Patient transferred to the bed with assistance. Assessment completed, refer to flowsheet for details. Orders released, reviewed, and implemented as appropriate. Oriented to surroundings, call light within reach. Plan of care reviewed. Will continue to monitor and assess. * Elena Arciniega RN - 03/31/2018 10:21 PM CDT At shift change pt is agitated and requesting to leave AMA. Cardiology staff internist office based only went to pts room to talk with her. Pt is agreeing to stay for "another hour." 0.5 mg IV Ativan given at 2023 per MD. 2114 pt is increasingly lethargic. Pt desats into upper 70s, RN encourages pt to wake up enough to take deep breaths. Pt only awakening to touch and loud voice. O2 increased to 4l, pt is now satting in 90s. Pt unable to stay awake long enough to state where she is. CV1 resident notified of pt status. Will continue to monitor pt for now to see if lethargy wears off after peak of Ativan. 2303 pt continues to be lethargic. Pt arrousable to sternal rub and unable to state name or place. Dr. Pulido updated. ABG ordered. MD also aware that patient has not taken any of her PO meds this evening. * Wandy Carey RN - 03/31/2018 9:56 PM CDT Two sets of blood cultures drawn by IV therapy. First set from the right antecubital vein and the second from the left antecubital vein. Tubes labeled at bedside. Pt tolerated well. * Giovanni Brooks DO - 03/31/2018 8:06 PM CDT Called patient room at approximately 19: 00 as patient was agitated and wanted to leave AMA. Upon entering room patient stated that she wanted to go home. Asked her what the issue was and she stated that her anxiety was the reason why her breathing was so poor in the hospital. I described in detail that her chest x-ray findings this morning were consistent with volume overload which we did in fact go over this morning. She stated that this is not actually the problem. I also discussed that earlier in the day we had, as a team, explore the option of BiPAP and potential ICU transfer. She believed that by going home she would be more comfortable and be able to breathe better. Additionally she did not understand that her poor kidney function and decreased urine output is playing a part in her worsening respiratory status. She was not able to converse appropriately. Simply replied that she wanted to go home. Did not feel that she had capacity to make such a decision. at bedside agreed that she was in fact confused and not at her baseline. Eventually came to agreement that I would revisit patient and she would try Ativan 0.5 mg IV for anxiety. Giovanni Brooks DO Internal medicine PGY 1 Pager [phone] * Erendira Howell RN - 03/31/2018 6:00 PM CDT RN and charge manager attempt at blood cultures and lactic, unsuccessful. Lab troubleshoot paged, stated they would come and draw blood. * Giovanni Brooks DO - 03/31/2018 12:58 PM CDT General Progress Note Name: Lucrecia Fields Today's Date: 03/31/2018 Admission Date: 03/25/2018 LOS: 6 days Assessment/Plan: Principal Problem: Atrial fibrillation with rapid ventricular response (HCC) Active Problems: Type 2 diabetes mellitus with circulatory disorder, without long-term 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 (HCC) PAF (paroxysmal atrial fibrillation) (HCC) Chronic gastrointestinal bleeding Transfusion-dependent anemia CAD (coronary artery disease), [place] coronary artery HLD (hyperlipidemia) Hypothyroidism DELROY (acute kidney injury) (HCC) Essential hypertension Pleural effusion on left Left leg cellulitis Long's esophagus Acute on chronic diastolic heart failure due to coronary artery disease (HCC) Lucrecia Fields is a 62 y.o. female, the patient has a past medical history of Acquired hypothyroidism; Arthritis; Back pain; Bleeding disorder (HCC); Coronary artery disease; Diabetes mellitus (HCC); Hypertension; Stomach disorder ; and Vision decreased. presenting with shortness of breath, dizziness/ lightheadedness, chills, nausea, lower extremity swelling and palpitations. 1. Atrial fluter, not on AC - has had intermittent atrial flutter since CABG - not on AC due to history of GIB - has had palpitations for about 1 week prior to presentation, no CP or syncope - EKG on admission: atrial fibrillation, rate 98, no ST changes - GI and CTS consulted to discuss effusion and AC in setting of bleeding history - EGD showing 3 columns of esophageal varices, mild portal hypertensive gastropathy without bleeding, gave without bleeding and gastric antrum, mild, and possible Long's esophagus, no biopsies taken - Rates controlled on dilt Plan for today: > Continue ASA and Metoprolol > diltiazem 45mg Q6hr, rates controlled > GI OK with anticoagulation as 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 Shortness of Breath/Lower extremity swelling, concern for DVT, volume overload - LLE swelling greater than right since surgery - has history of DVT - BNP 327 on admission - CXR with persistent left sided pleural effusion - IR drain and Chest tube on left side, 40 cc overnight -CTS okay with anticoagulation while chest tube is in place -Chest x-ray worse overnight showing increased pulmonary vascular congestion -Net positive 300 cc over last 24 hours Plan for today: > Pulling chest tube today > 40 IV Lasix in a.m., repeat around noon > Repeat 2D echo pending, concern for increased pericardial effusion > low threshold for BiPAP 3. Acute kidney injury -Likely combination of prerenal and intrinsic -Consistent with prerenal disease -Renal ultrasound unremarkable: Urine output, oliguria -Changed amoxicillin to doxycycline -Held Lasix for 2 days but creatinine still armando -Urine output, oliguria Plan: > Avoid nephrotoxic medications > Nephrology consult 4. Cellulitis of lower extremity, left - Amoxicillin started on 03/26, end 03/29 Plan: >continue doxycycline, end 04/04/18 5. CAD s/p CABG 02/16/18 - no chest pain, surgical scar well healing - trop/EKG negative for ischemia on admission Plan for today: > Continue ASA, BB > monitor 6. 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 Hypothyroidism > Continue Synthroid 8. HLD > Continue YARD WORKER statin 9. HTN > Continue metoprolol 10. 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 Diet: Cardiac Diet Prophylaxis: DVT: SCD Stress ulcer: PPI Code status: Full Code Disposition: contiue on CV1 Patient discussed with Dr. Miner. Giovanni Brooks DO Internal Medicine PGY-1 Pager: [phone] Subjective Patient seen and examined this morning. Overnight had increased oxygen requirements up to 4 L, O2 sats in high 80s to 92%. ABG consistent with CO2 retention. Chest x-ray consistent with increased pulmonary vascular congestion. Also noted to have worsening creatinine. Upon examination this morning patient was confused and complaining of chest pain secondary to chest tube. Seemed lethargic this morning as well. Denies fever, chills, n/v, chest tightness, abdominal pain, diarrhea, constipation. Medications Scheduled Meds: aspirin chewable tablet 81 mg 81 mg Oral QDAY cetirizine (ZYRTEC) tablet 10 mg 10 mg Oral QAM8 diltiazem (cardIZEM) tablet 45 mg 45 mg Oral Q6H doxycycline (VIBRAMYCIN) tablet 100 mg 100 mg Oral BID folic acid (FOLVITE) tablet 1 mg 1 mg Oral QDAY heparin (porcine) PF syringe 5,000 Units 5,000 Units Subcutaneous Q8H insulin aspart U-100 (NOVOLOG FLEXPEN) injection PEN 0-14 Units 0-14 Units Subcutaneous ACHS insulin NPH (HUMULIN N KwikPen) injection PEN 18 Units 18 Units Subcutaneous QDAY(07) levothyroxine (SYNTHROID) tablet 175 mcg 175 mcg Oral QDAY 30 min before breakfast metoprolol tartrate (LOPRESSOR) tablet 100 mg 100 mg Oral BID nystatin (NYSTOP) topical powder Topical BID pantoprazole DR (PROTONIX) tablet 80 mg 80 mg Oral QDAY(21) rosuvastatin (CRESTOR) tablet 40 mg 40 mg Oral QDAY senna/docusate (SENOKOT-S) tablet 2 tablet 2 tablet Oral BID sucralfate (CARAFATE) tablet 1 g 1 g Oral QID Continuous Infusions: PRN and Respiratory Meds:acetaminophen Q6H PRN, fentaNYL citrate PF Intra- procedure Med, hydrOXYzine TID PRN, midazolam Intra-procedure Med, nitroglycerin Q5 MIN PRN, ondansetron Q8H PRN, traMADol Q6H PRN Review of Systems: A 14 point review of systems was negative except for: Discussed in subjective Objective: Vital Signs: Last Filed Vital Signs: 24 Hour Range BP: 127/60 (03/31 1230) Temp: 36.6 C (97.9 F) (03/31 123) Pulse: 75 (03/31 1230) Respirations: 18 PER MINUTE (03/31 1230) SpO2: 97 % (03/31 1230) O2 Delivery: Nasal Cannula (03/31 1230) Height: 162.6 cm (64") (03/31 115) BP: (89-130)/(40-61) Temp: [36.4 C (97.6 F)-36.7 C (98.1 F)] Pulse: [56-89] Respirations: [16 PER MINUTE-20 PER MINUTE] SpO2: [86 %-100 %] O2 Delivery: Nasal Cannula Intensity Pain Scale (Self Report): 7 (03/30/182012) Vitals: 03/30/18 0750 03/31/18 0500 03/31/18 1157 Weight: 112.6 kg (248 lb 3.2 oz) 113 kg (249 lb 1.9 oz) 112.9 kg (249 lb) Intake/Output Summary: (Last 24 hours) Intake/Output Summary (Last 24 hours) at 03/31/18 1258 Last data filed at 03/31/18 1231 Gross per 24 hour Intake 500 ml Output 245 ml Net 255 ml Stool Occurrence: 1 Physical Exam General: Alert, cooperative, no distress, appears stated age, uncomfortable Eyes: Conjunctivae/corneas clear. EOMI bilaterally, no conjunctival injection Lungs: Clear to auscultation bilaterally decreased breath sounds on the left Heart: Regular rhythm, tachycardic, S1, S2 normal, no appreciable murmur Abdomen: Soft, non-tender. Bowel sounds normal. No masses. No organomegaly. Extremities: Bilateral lower extremities. 1+ pitting edema bilaterally, mildly worse on the left side, there is a scar assumably where the vein graft was harvested, erythema improved, without any purulence noted Skin: Scar on left leg from saphenous vein graft without purulence, there is erythema, warmth is equal bilaterally Neurologic: CNII - XII intact. Normal strength, sensation and reflexes throughout. Psych: A and O x3, lethargic, slow to answer questions Lab Review 24-hour labs: Results for orders placed or performed during the hospital encounter of (from the past 24 hour(s)) POC GLUCOSE Collection Time: 03/30/18 5:25 PM Result Value Ref Range Glucose, POC 138 (H) 70 - 100 MG/DL POC GLUCOSE Collection Time: 03/30/18 9:31 PM Result Value Ref Range Glucose, POC 162 (H) 70 - 100 MG/DL CBC AND DIFF Collection Time: 03/31/18 3:50 AM Result Value Ref Range White Blood Cells 10.9 4.5 - 11.0 K/UL RBC 2.85 (L) 4.0 - 5.0 M/UL Hemoglobin 8.9 (L) 12.0 - 15.0 GM/DL Hematocrit 27.4 (L) 36 - 45 % MCV 96.1 80 - 100 FL MCH 31.2 26 - 34 PG MCHC 32.4 32.0 - 36.0 G/DL RDW 18.0 (H) 11 - 15 % Platelet Count 200 150 - 400 K/UL MPV 8.9 7 - 11 FL Neutrophils 75 41 - 77 % Lymphocytes 10 (L) 24 - 44 % Monocytes 11 4 - 12 % Eosinophils 3 0 - 5 % Basophils 1 0 - 2 % Absolute Neutrophil Count 8.20 (H) 1.8 - 7.0 K/UL Absolute Lymph Count 1.10 1.0 - 4.8 K/UL Absolute Monocyte Count 1.20 (H) 0 - 0.80 K/UL Absolute Eosinophil Count 0.30 0 - 0.45 K/UL Absolute Basophil Count 0.10 0 - 0.20 K/UL COMPREHENSIVE METABOLIC PANEL Collection Time: 03/31/18 3:50 AM Result Value Ref Range Sodium 133 (L) 137 - 147 MMOL/L Potassium 4.3 3.5 - 5.1 MMOL/L Chloride 99 98 - 110 MMOL/L Glucose 149 (H) 70 - 100 MG/DL Blood Urea Nitrogen 48 (H) 7 - 25 MG/DL Creatinine 3.06 (H) 0.4 - 1.00 MG/DL Calcium 9.3 8.5 - 10.6 MG/DL Total Protein 7.5 6.0 - 8.0 G/DL Total Bilirubin 0.7 0.3 - 1.2 MG/DL Albumin 3.4 (L) 3.5 - 5.0 G/DL Alk Phosphatase 59 25 - 110 U/L AST (SGOT) 14 7 - 40 U/L CO2 23 21 - 30 MMOL/L ALT (SGPT) 5 (L) 7 - 56 U/L Anion Gap 11 3 - 12 eGFR Non 16 (L) >60 mL/min eGFR 19 (L) >60 mL/min BLOOD GASES, ARTERIAL Collection Time: 03/31/18 4:45 AM Result Value Ref Range pH-Arterial 7.30 (L) 7.35 - 7.45 pCO2-Arterial 50 (H) 35 - 45 MMHG pO2-Arterial 76 (L) 80 - 100 MMHG Base Deficit-Arterial 2.2 MMOL/L O2 Sat-Arterial 94.8 (L) 95 - 99 % [id number] 22.5 21 - 28 MMOL/L POC GLUCOSE Collection Time: 03/31/18 7:34 AM Result Value Ref Range Glucose, POC 141 (H) 70 - 100 MG/DL POC GLUCOSE Collection Time: 03/31/18 12:17 PM Result Value Ref Range Glucose, POC 137 (H) 70 - 100 MG/DL Point of Care Testing (Last 24 hours) Glucose: (!) 149 (03/31/18 0350) POC Glucose (Download): (!) 137 (03/31/18 1217) Radiology and other Diagnostics Review: None Giovanni Brooks DO Internal Medicine PGY 1 Pager [phone] Associated attestation - Deepak Miner MD - 03/31/2018 2:43 PM CDT Cardiology Staff Note Ms. Fields's chest tube output has the last 24 hours, is down to 40 mL. It was removed today. Her AK I has continued to worsen. We will have nephrology see her today. Given her low urine output and changes on her chest x-ray, I am still going to try to diurese her with IV Lasix going to repeat her echocardiogram today as well. ATTESTATION I personally performed the dempsey portions of the E/M visit, discussed case with resident and concur with resident documentation of history, physical exam, assessment, and treatment plan unless otherwise noted. Staff name: Deepak Miner MD Date: 03/31/2018 * Linda Joya - 03/31/2018 11:26 AM CDT OCCUPATIONAL THERAPY NO TREATMENT NOTE The patient was not seen due to: Patient not available - off unit. Occupational therapy will continue to follow and provide intervention as indicated. Attempted again in afternoon. Patient declined stating she had not slept well and is not feeling well today. Asks therapist to return tomorrow. Therapist: Linda Joya OTR/L [id number] Date: 03/31/2018 * Luna Murillo - 03/31/2018 10:45 AM CDT PHYSICAL THERAPY NOTE Patient adamantly declined all mobility stating having knee pain and buckling when up yesterday. Patient with decreased arousal during conversation and unable to provide reason for not participating with repeatedly stating "no" despite open ended questions provided. RN aware of attempt. Patient declines any SOA or needs at this time prior to exiting room. Physical therapy will continue to follow and provide intervention as indicated. Therapist: Luna Murillo Date: 03/31/2018 * Elena Shen PA-C - 03/31/2018 8:09 AM CDT CTS update note: Ms. Fields is s/p CABG/MAZE/ ligation SETH on Dr. Pal on 02/16/18 admitted 03/25 with atrial fibrillation and left pleural effusion. GI consulted for anticoagulation recommendations as she has h/o GI bleeds. 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 VS: afebrile, A fib/Aflutter rate 70-80s, BP 100-120s, 93% on 4L On diltiazem 45mg q6hrs Labs: Hgb 8.5-->7.9-->8.8-->8.7-->8.4-->8.9 Cr 1.6-->1.49-->2.05-->2.45-->2.80-->3.06, diuresis held L pigtail placed in IR 03/26. CXR today with continued L effusion. Pleural CT with 40cc/24hr out. Atelectasis in left chest, basilar. Plan: 1. D/c pigtail this afternoon 2. Atelectasis on CXR left chest. IS, respiratory therapy on board * Isabel Reagan - 03/31/2018 4:22 AM CDT Patient was anxious during start of shift regarding chest tube and wanting it to be removed. Patient was given one time dose of Ativan. During the night patient's oxygen demand has increased and her oxygen saturation has been consistently around 87-90% on 3-4L of oxygen. Patient has be oriented to herself and being in a hospital (believes she is in a hospital in [place]) and what year it is. Currently patient has become much more lethargic.Labs drawn and CV1 notified and ABG and chest x-ray ordered. Will continue to monitor. * Erendira Howell RN - 03/30/2018 6:54 PM CDT Pt complaining about her chest tube, stating she wants it out and that it is causing her anxiety and pain. RN tried to redirect patient, and adminsitered pain medication and anxiety medication, and stated that the goal is to have less that 100 ml out in 24 hours. RN stated multiple times that she wanted to speak with a MD about taking the tube out. CV1 paged, Dr. Chan up to see patient. Stated will follow up with CTS regarding chest tube. * Ervin Woodall DO - 03/30/2018 6:31 PM CDT Gastroenterology Progress Note Patient Name:Lucrecia Fields Admission Date: 03/25/2018 2:56 PM Principal Problem: Atrial fibrillation with rapid ventricular response (HCC) Active Problems: Type 2 diabetes mellitus with circulatory disorder, without long-term 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 (HCC) PAF (paroxysmal atrial fibrillation) (HCC) Chronic gastrointestinal bleeding Transfusion-dependent anemia CAD (coronary artery disease), [place] coronary artery HLD (hyperlipidemia) Hypothyroidism DELROY (acute kidney injury) (HCC) Essential hypertension Pleural effusion on left Left leg cellulitis Long's esophagus Reason for consult: chronic anemia, presumed recurrent GIB Assessment: 62 yo female p/w SOB and atrial fibrillation. PMH significant for CAD, STEMI, prior CABG 03/12 with subsequent development of atrial fibrillation/flutter not currently on anticoagulation, DM, hypertension. GI is consulted for evaluation of anticoagulation risk and presumed chronic GI bleeding. #Presumed GI bleeding, recurrent #GAVE #Esophageal varices #Need for recurrent blood transfusions #Atrial fibrillation/flutter, not currently anticoagulated #Recent CABG procedure Recommendations: EGD performed yesterday findings significant for small amount of gain, portal hypertensive gastropathy, grade 1 esophageal varices. No APC performed due to low utility of gave in the setting of above findings Spoke to the patient at length regarding the risks and benefits of anticoagulation versus no anticoagulation given her high risk atrial fibrillation. From the GI perspective the patient is relatively safe to undergo anticoagulation to reduce her ischemic stroke risk. However the patient is also been counseled that she is high risk for recurrent GI bleed given the above findings. Patient elects to undergo anticoagulation at this time to lower her ischemic stroke risk and accepts the fact that she may be increasing her risk of recurrent GI bleed, which may warrant further interventions and resuscitative measures Patient should have follow-up in the outpatient hematology clinic given her findings of esophageal varices, portal hypertensive gastropathy, splenomegaly previously seen on imaging patient's last imaging of her liver showed fatty steatosis and hepatomegaly, no cirrhotic architecture GI will sign off at this point. If there are any further questions, please do not hesitate to give us a call. Patient discussed with attending on service, Dr. Jonny Woodall DO Pager [phone] GI Fellow 03/30/2018 6:32 PM Interval Events No acute events overnight EGD performed yesterday with above findings Feeling well this morning, hemoglobin relatively stable currently 8.4. The patient feels otherwise well, denies any fever/chills, SOB, chest pain, N/V , abd pain, dysuria. PMH: Past Medical History: Diagnosis Date Acquired hypothyroidism Arthritis Back pain Bleeding disorder (HCC) CAD (coronary artery disease), [place] coronary artery 02/16/2018 Coronary artery disease Diabetes mellitus (HCC) Type II Essential hypertension 02/23/2018 Hypertension Stomach disorder Vision decreased Current medications: No current facility-administered medications on file prior to encounter. Current Outpatient Prescriptions on File Prior to Encounter Medication Sig Dispense Refill acetaminophen (TYLENOL) 325 mg tablet Take two tablets by mouth every 6 hours as needed. 0 aspirin 81 mg chewable tablet Chew one tablet by mouth daily with food. 90 tablet 3 cetirizine (ZYRTEC) 10 mg tablet Take 10 mg by mouth every morning. folic acid (FOLVITE) 1 mg tablet Take 1 mg by mouth daily. GLUCOSAMINE HCL/CHONDROITIN CALDERON (GLUCOSAMINE-CHONDROITIN PO) Take 1 tablet by mouth twice daily. insulin aspart U-100 (NOVOLOG) 100 unit/mL injection Inject four Units under the skin three times daily with meals. 10 mL 30 insulin NPH (HUMULIN N NPH U-100 INSULIN) 100 unit/mL injection Inject fourteen Units under the skin every morning. 10 mL 30 Insulin Syringe-Needle U-100 (BD INSULIN SYRINGE ULTRA-FINE) 0.3 mL 31 gauge x 5/16 syrg Use four times daily with Insulin 100 each 0 levothyroxine (SYNTHROID) 175 mcg tablet Take 175 mcg by mouth daily 30 minutes before breakfast. nitroglycerin (NITROSTAT) 0.[address] 0.4 mg under tongue every 5 minutes as needed for Chest Pain. Max of 3 tablets, call 911. omeprazole DR(+) (PRILOSEC) 40 mg capsule Take 40 mg by mouth twice daily. ondansetron (ZOFRAN) 8 mg tablet Take 8 mg by mouth every 8 hours as needed for Nausea or Vomiting. senna/docusate (SENOKOT-S) 8.6/50 mg tablet Take two tablets by mouth twice daily. (Patient taking differently: Take 2 tablets by mouth at bedtime daily.) 20 tablet 0 traMADol (ULTRAM) 50 mg tablet Take one tablet by mouth every 6 hours as needed for Pain. 30 tablet 0 PSH: Past Surgical History: Procedure Laterality Date HX HEART CATHETERIZATION 2017 CORONARY STENT PLACEMENT 2017 CORONARY ARTERY BYPASS GRAFT N/A 02/16/2018 CORONARY ARTERY BYPASS WITH ARTERIAL GRAFT - 4 GRAFTS (Internal Mammary Artery and Endovascular Vein [place]) performed by Lance Pal MD at [facility] HX MAZE N/A 02/16/2018 MAZE PROCEDURE performed by Lance Pal MD at [facility] ANKLE SURGERY Left ankle reconstruction COLONOSCOPY HX KNEE ARTHROSCOPY Left HX TONSIL AND ADENOIDECTOMY TUBAL LIGATION UPPER GASTROINTESTINAL ENDOSCOPY SH: Social History Social History Marital status: Spouse name: N/A Number of children: N/A Years of education: N/A Occupational History Not on file. Social History Main Topics Smoking status: Former Smoker Packs/day: 2.00 Years: 10.00 Types: Cigarettes Quit date: 09/28/1981 Smokeless tobacco: Never Used Alcohol use Yes Comment: Seldom Drug use: No Sexual activity: Not on file Other Topics Concern Not on file Social History Narrative No narrative on file FH: Family History Problem Relation Age of Onset [...] Grandmother Diabetes Paternal Grandmother Cancer Paternal Grandfather Physical Exam: Vitals: 03/30/18 1521 03/30/18 1548 03/30/18 1816 03/30/18 1817 BP: 106/61 Pulse: 77 Temp: 36.6 C (97.9 F) SpO2: 94% 92% (!) 86% 92% Weight: Height: General - Alert and oriented, no acute distress. Head - Normocephalic, atraumatic. Eyes - EOMI grossly. No icterus or injection. Oropharynx- No ulcer or bleeding, moist mucosa. Neck - No swelling or tracheal deviation. Abd - Soft, non TTP, non distended, normal bowel sounds, no hepatospenomegaly. Extremities - Warm, dry. Skin - No exposed rash, lesion. Neurological - No gross deficit Labs/Imaging: Pertient labs/imaging was reviewed on initiation of progress note. Associated attestation - Dominic Fuller MD - 03/30/2018 11:09 PM CDT ATTESTATION I personally performed the dempsey portions of the E/M visit, discussed case with resident and concur with resident documentation of history, physical exam, assessment, and treatment plan unless otherwise noted. Staff name: Dominic Fuller MD Date: 03/30/2018 * Shashi Chan MD - 03/30/2018 1:07 PM CDT General Progress Note Name: Lucrecia Fields Today's Date: 03/30/2018 Admission Date: 03/25/2018 LOS: 5 days Assessment/Plan: Principal Problem: Atrial fibrillation with rapid ventricular response (HCC) Active Problems: Type 2 diabetes mellitus with circulatory disorder, without long-term 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 (HCC) PAF (paroxysmal atrial fibrillation) (HCC) Chronic gastrointestinal bleeding Transfusion-dependent anemia CAD (coronary artery disease), [place] coronary artery HLD (hyperlipidemia) Hypothyroidism DELROY (acute kidney injury) (HCC) Essential hypertension Pleural effusion on left Left leg cellulitis Long's esophagus Lucrecia Fields is a 62 y.o. female, the patient has a past medical history of Acquired hypothyroidism; Arthritis; Back pain; Bleeding disorder (HCC); Coronary artery disease; Diabetes mellitus (HCC); Hypertension; Stomach disorder ; and Vision decreased. presenting with shortness of breath, dizziness/ lightheadedness, chills, nausea, lower extremity swelling and palpitations. 1. Atrial fluter, not on AC - has had intermittent atrial flutter since CABG - not on AC due to history of GIB - has had palpitations for about 1 week prior to presentation, no CP or syncope - EKG on admission: atrial fibrillation, rate 98, no ST changes - GI and CTS consulted to discuss effusion and AC in setting of bleeding history - EGD showing 3 columns of esophageal varices, mild portal hypertensive gastropathy without bleeding, gave without bleeding and gastric antrum, mild, and possible Long's esophagus, no biopsies taken Plan for today: > Continue ASA and Metoprolol > Switch diltiazem drip to p.o. Today, will start at 45mg Q6hr > GI OK with anticoagulation as GAVE will require sequential ablative therapies > CTS okay with anticoagulation, we will wait for chest tube to be pulled 2. Shortness of Breath/Lower extremity swelling, concern for DVT - LLE swelling greater than right since surgery - has history of DVT - BNP 327 on admission - CXR with persistent left sided pleural effusion - IR drain and Chest tube on left side, 120 cc overnight -CTS okay with anticoagulation while chest tube is in place Plan for today: > BC pending > required venturi mask overnight, but back to nasal canula today, will monitor 3. Cellulitis of lower extremity, left - Amoxicillin started on 03/26, end 03/29 Plan: >continue doxycycline, end 04/04/18 3. CAD s/p CABG 02/16/18 - no chest pain, surgical scar well healing - trop/EKG negative for ischemia on admission Plan for today: > Continue ASA, BB > monitor 4. History of GIB - has had extensive work up and evaluation by GI - frequent upper/lower GIB - requires frequent blood transfusions, last transfusion 03/26 Plan for today: > monitor 5. Hypothyroidism > Continue Synthroid 6. 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 HTN > Continue metoprolol 8. 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 Diet: Cardiac Diet Prophylaxis: DVT: SCD Stress ulcer: PPI Code status: Full Code Disposition: contiue on CV1 Patient discussed with Dr. Miner. Shashi Chan MD Internal Medicine PGY-2 Pager: [phone] Subjective Having pain/discomfort from her chest tube site. No fevers, chills, nausea, vomiting, palpitation, chest pain, constipation, diarrhea. We discussed how her chest tube is still draining some fluid and that CTS is managing this tube. We also discussed the results of her EGD and the GI perspective moving forward. Medications Scheduled Meds: aspirin chewable tablet 81 mg 81 mg Oral QDAY cetirizine (ZYRTEC) tablet 10 mg 10 mg Oral QAM8 diltiazem (cardIZEM) tablet 45 mg 45 mg Oral Q6H doxycycline (VIBRAMYCIN) tablet 100 mg 100 mg Oral BID folic acid (FOLVITE) tablet 1 mg 1 mg Oral QDAY heparin (porcine) PF syringe 5,000 Units 5,000 Units Subcutaneous Q8H insulin aspart U-100 (NOVOLOG FLEXPEN) injection PEN 0-14 Units 0-14 Units Subcutaneous ACHS insulin NPH (HUMULIN N KwikPen) injection PEN 18 Units 18 Units Subcutaneous QDAY(07) levothyroxine (SYNTHROID) tablet 175 mcg 175 mcg Oral QDAY 30 min before breakfast metoprolol tartrate (LOPRESSOR) tablet 100 mg 100 mg Oral BID nystatin (NYSTOP) topical powder Topical BID pantoprazole DR (PROTONIX) tablet 80 mg 80 mg Oral QDAY(21) rosuvastatin (CRESTOR) tablet 40 mg 40 mg Oral QDAY senna/docusate (SENOKOT-S) tablet 2 tablet 2 tablet Oral BID sucralfate (CARAFATE) tablet 1 g 1 g Oral QID Continuous Infusions: lactated ringers infusion sodium chloride 0.9 % infusion PRN and Respiratory Meds:acetaminophen Q6H PRN, fentaNYL citrate PF Intra- procedure Med, hydrOXYzine TID PRN, midazolam Intra-procedure Med, nitroglycerin Q5 MIN PRN, ondansetron Q8H PRN, traMADol Q6H PRN Review of Systems: A 14 point review of systems was negative except for: Discussed in subjective Objective: Vital Signs: Last Filed Vital Signs: 24 Hour Range BP: 109/46 (03/30 1302) Temp: 36.5 C (97.7 F) (03/30 1300) Pulse: 56 (03/30 130) Respirations: 20 PER MINUTE (03/30 1300) SpO2: 93 % (03/30 1302) O2 Delivery: Nasal Cannula (03/30 1302) BP: (89-136)/(42-80) Temp: [36.3 C (97.4 F)-37.2 C (98.9 F)] Pulse: [56-111] Respirations: [16 PER MINUTE-20 PER MINUTE] SpO2: [88 %-100 %] O2 Delivery: Nasal Cannula Intensity Pain Scale (Self Report): 5 (03/30/18 1250) Verbal Pain Description: Mild Pain (03/30/18 0333) Vitals: 03/29/18 0446 03/29/18 1044 03/30/18 0750 Weight: 112.3 kg (247 lb 9.6 oz) 113.8 kg (250 lb 14.1 oz) 112.6 kg (248 lb 3.2 oz) Intake/Output Summary: (Last 24 hours) Intake/Output Summary (Last 24 hours) at 03/30/18 1307 Last data filed at 03/30/18 1305 Gross per 24 hour Intake 750 ml Output 462 ml Net 288 ml Stool Occurrence: 1 Physical Exam General: Alert, cooperative, no distress, appears stated age, uncomfortable Eyes: Conjunctivae/corneas clear. EOMI bilaterally, no conjunctival injection Lungs: Clear to auscultation bilaterally decreased breath sounds on the left Heart: Regular rhythm, tachycardic, S1, S2 normal, no appreciable murmur Abdomen: Soft, non-tender. Bowel sounds normal. No masses. No organomegaly. Extremities: Bilateral lower extremities. 1+ pitting edema bilaterally, mildly worse on the left side, there is a scar assumably where the vein graft was harvested, erythema improved, without any purulence noted Skin: Scar on left leg from saphenous vein graft without purulence, there is erythema, warmth is equal bilaterally Neurologic: CNII - XII intact. Normal strength, sensation and reflexes throughout. Psych: A and O x4 normal mood and affect Lab Review 24-hour labs: Results for orders placed or performed during the hospital encounter of (from the past 24 hour(s)) CREATININE-URINE RANDOM Collection Time: 03/29/18 4:02 PM Result Value Ref Range Creatinine, Random 194 MG/DL SODIUM-URINE RANDOM Collection Time: 03/29/18 4:02 PM Result Value Ref Range Sodium, Random 12 MMOL/L UREA NITROGEN-URINE RANDOM Collection Time: 03/29/18 4:02 PM Result Value Ref Range Urea Nitrogen 247 MG/DL OSMOLALITY-URINE RANDOM Collection Time: 03/29/18 4:02 PM Result Value Ref Range Osmolality-Urine 342 50 - 1,400 MOS/KG POC GLUCOSE Collection Time: 03/29/18 5:07 PM Result Value Ref Range Glucose, POC 207 (H) 70 - 100 MG/DL POC GLUCOSE Collection Time: 03/29/18 8:42 PM Result Value Ref Range Glucose, POC 173 (H) 70 - 100 MG/DL CBC AND DIFF Collection Time: 03/30/18 4:10 AM Result Value Ref Range White Blood Cells 7.0 4.5 - 11.0 K/UL RBC 2.67 (L) 4.0 - 5.0 M/UL Hemoglobin 8.4 (L) 12.0 - 15.0 GM/DL Hematocrit 26.3 (L) 36 - 45 % MCV 98.5 80 - 100 FL MCH 31.6 26 - 34 PG MCHC 32.0 32.0 - 36.0 G/DL RDW 18.9 (H) 11 - 15 % Platelet Count 167 150 - 400 K/UL MPV 8.2 7 - 11 FL Neutrophils 75 41 - 77 % Lymphocytes 12 (L) 24 - 44 % Monocytes 11 4 - 12 % Eosinophils 2 0 - 5 % Basophils 0 0 - 2 % Absolute Neutrophil Count 5.30 1.8 - 7.0 K/UL Absolute Lymph Count 0.80 (L) 1.0 - 4.8 K/UL Absolute Monocyte Count 0.70 0 - 0.80 K/UL Absolute Eosinophil Count 0.10 0 - 0.45 K/UL Absolute Basophil Count 0.00 0 - 0.20 K/UL COMPREHENSIVE METABOLIC PANEL Collection Time: 03/30/18 4:10 AM Result Value Ref Range Sodium 133 (L) 137 - 147 MMOL/L Potassium 4.4 3.5 - 5.1 MMOL/L Chloride 100 98 - 110 MMOL/L Glucose 207 (H) 70 - 100 MG/DL Blood Urea Nitrogen 40 (H) 7 - 25 MG/DL Creatinine 2.80 (H) 0.4 - 1.00 MG/DL Calcium 9.2 8.5 - 10.6 MG/DL Total Protein 7.2 6.0 - 8.0 G/DL Total Bilirubin 0.8 0.3 - 1.2 MG/DL Albumin 3.2 (L) 3.5 - 5.0 G/DL Alk Phosphatase 62 25 - 110 U/L AST (SGOT) 10 7 - 40 U/L CO2 25 21 - 30 MMOL/L ALT (SGPT) 4 (L) 7 - 56 U/L Anion Gap 8 3 - 12 eGFR Non 17 (L) >60 mL/min eGFR 21 (L) >60 mL/min POC GLUCOSE Collection Time: 03/30/18 9:02 AM Result Value Ref Range Glucose, POC 195 (H) 70 - 100 MG/DL URINALYSIS DIPSTICK REFLEX TO CULTURE Collection Time: 03/30/18 12:30 PM Result Value Ref Range Color,UA CARLIE Turbidity,UA 1+ (A) CLEAR-CLEAR Specific [place]-Urine 1.021 1.003 - 1.035 pH,UA 5.0 5.0 - 8.0 Protein,UA 1+ (A) NEG-NEG Glucose,UA NEG NEG-NEG Ketones,UA NEG NEG-NEG Bilirubin,UA NEG NEG-NEG Blood,UA NEG NEG-NEG Urobilinogen,UA NORMAL NORM-NORMAL Nitrite,UA NEG NEG-NEG Leukocytes,UA NEG NEG-NEG Urine Ascorbic Acid, UA NEG NEG-NEG URINALYSIS MICROSCOPIC REFLEX TO CULTURE Collection Time: 03/30/18 12:30 PM Result Value Ref Range WBCs,UA 2-10 0 - 2 /HPF RBCs,UA 0-2 0 - 3 /HPF Comment,UA Urine submitted for reflex culture if criteria are met:WBC>10, positive nitrite and/or >=1+ leukocyte esterase. If quantity is not sufficient, an addendum will follow. MucousUA TRACE Bacteria,UA FEW (A) NEG-NEG Squamous Epithelial Cells 10-20 0 - 5 Hyaline Cast PACKED Renal Epitheilial 0-2 Transitional Epithelial 0-2 Point of Care Testing (Last 24 hours) Glucose: (!) 207 (03/30/18 4450) POC Glucose (Download): (!) 195 (03/30/18 6098) Radiology and other Diagnostics Review: None Associated attestation - Deepak Miner MD - 03/30/2018 2:15 PM CDT Cardiology Staff Note Ms. Fields still had some output from her CT, there was 212 mL last 24 hours. Overall she is -1.0 L for the last 24 hours, and -1.2 L for the hospitalization. Her DELROY has worsened, her creatinine is increased to 2.8 today, he was 2.5 yesterday, was 1.5 upon admission. We are not diuresing her aggressively currently, we are holding all nephrotoxins. We converted her antibiotic to doxycycline yesterday, in case it was contributing. We are going to repeat a UA and a renal Doppler as well. We are going to convert her diltiazem to p.o. today. Once the chest tubes out we can consider anticoagulation and moving towards a rhythm control strategy. ATTESTATION I personally performed the dempsey portions of the E/M visit, discussed case with resident and concur with resident documentation of history, physical exam, assessment, and treatment plan unless otherwise noted. Staff name: Deepak Miner MD Date: 03/30/2018 * Yobany Concepcion, PT - 03/30/2018 10:36 AM CDT PHYSICAL THERAPY ASSESSMENT MOBILITY: Mobility Progressive Mobility Level: Walk in hallway Distance Walked (feet): 70 ft Level of Assistance: Assist X1 Assistive Device: None Time Tolerated: 11-30 minutes Activity Limited By: Fatigue;Weakness SUBJECTIVE: Subjective Significant hospital events: s/p CABG/MAZE/ ligation SETH on Dr. Pal on admitted 03/25/18 with atrial fibrillation and left pleural effusion. Chest tube placed 03/26. Mental / Cognitive Status: Alert;Cooperative;Follows Commands Persons Present: Spouse Pain: Patient complains of pain;Before activity;Patient does not rate pain Pain Location: Back Pain Description: Aching Pain Interventions: Patient agrees to participate in therapy Comments: Patient on 2L supplemental oxygen via NC this date. Chest tube to water seal. Ambulation Assist: Independent Mobility at Household Level without Device Patient Owned Equipment: Roller Walker;4-Wheeled Walker Home Situation: Lives with Family Type of Home: House Entry Stairs: Ramp In-Home Stairs: Able to Live on One Level Comments: Patient denies fall in the last month since previous admission in February. STRENGTH: Strength Strength Position Assessed: Seated Overall Strength: Able to Move All Joints Independently Through Available ROM POSTURE/NEURO: Posture / Neurological Head Control: Independent Posture: Rounded Shoulders Overall Tone: Normal BED MOBILITY/TRANSFERS: Bed Mobility/Transfers Comments: Patient in bedside chair at start of session and sat edge of bed at conclusion. Bed mobility not assessed this date. Transfer Type: Sit to Stand Transfer: Assistance Level: From;Bed Side Chair;Standby Assist Transfer: Assistive Device: None Transfers: Type Of Assistance: For Safety Considerations Other Transfer Type: Stand to Sit Other Transfer: Assistance Level: To;Bed;Standby Assist Other Transfer: Assistive Device: None Other Transfer: Type Of Assistance: For Safety Considerations End Of Activity Status: Sitting at Edge of Bed;Nursing Notified;Instructed Patient to Request Assist with Mobility;Instructed Patient to Use Call Light BALANCE: Balance Sitting Balance: Static Sitting Balance;Dynamic Sitting Balance;Standby Assist; Even Surface Standing Balance: Static Standing Balance;Dynamic Standing Balance;No UE support ;Minimal Assist;Even Surface (Contact-guard assist) GAIT: Gait Gait Distance: 70 feet Gait: Assistance Level: Minimal Assist (Contact-guard assist) Gait: Assistive Device: None Gait: Descriptors: Pace: Slow;Normal step length Comments: Patient ambulates with wide base of support and decreased arm swing bilaterally this date. Activity Limited By: Complaint of Fatigue;Weakness EDUCATION: Education Persons Educated: Patient/Family Patient Barriers To Learning: None Noted Interventions: Repetition of Instructions;Family Education Teaching Methods: Verbal Instruction Patient Response: Verbalized Understanding;More Instruction Required Topics: Plan/Goals of PT Interventions;Mobility Progression;Safety Awareness;Up with Assist Only;Importance of Increasing Activity;Ambulate With Nursing; Recommend Continued Therapy ASSESSMENT/PROGRESS: Assessment/Progress Impaired Mobility Due To: Decreased Activity Tolerance;Safety Concerns;Impaired Balance;Decreased Strength Assessment/Progress: Should Improve w/ Continued PT AM-PAC 6 Clicks Basic Mobility Inpatient Turning from your back to your side while in a flat bed without using bed rails : A Little Moving from lying on your back to sitting on the side of a flatbed without using bedrails : A Little Moving to and from a bed to a chair (including a wheelchair): A Little Standing up from a chair using your arms (e.g. wheelchair, or bedside chair): A Little To walk in hospital room: A Little Climbing 3-5 steps with a railing: A Lot Raw Score: 17 Standardized (T-scale) Score: 39.67 Basic Mobility CMS 0-100%: 43.83 [facility] G Code Modifier for Basic Mobility: CK GOALS: Goals Goal Formulation: With Patient/Family Time For Goal Achievement: 3 days, To, 5 days Pt Will Go Supine To/From Sit: Independently Pt Will Transfer Bed/Chair: Independently Pt Will Transfer Sit to Stand: Independently Pt Will Ambulate: 101-150 Feet, w/ No Device, w/ Stand By Assist PLAN: Plan Treatment Interventions: Mobility Training;Endurance Training Plan Frequency: 5 Days per Week PT Plan for Next Visit: Progress gait distance and upright activity tolerance as able. RECOMMENDATIONS: PT Discharge Recommendations PT Discharge Recommendations: Home with Assistance;and;Home Health Setting Equipment Recommendations: Patient owns necessary equipment Therapist: Yobany Concepcion PT , DPT Date: 03/30/2018 * Linda Joya - 03/30/2018 10:00 AM CDT OCCUPATIONAL THERAPY ASSESSMENT NOTE Patient Name: Lucrecia Fields Room/Bed: HC502/01 Admitting Diagnosis: Past Medical History: Diagnosis Date Acquired hypothyroidism Arthritis Back pain Bleeding disorder (HCC) CAD (coronary artery disease), [place] coronary artery 02/16/2018 Coronary artery disease Diabetes mellitus (HCC) Type II Essential hypertension 02/23/2018 Hypertension Stomach disorder Vision decreased Mobility Progressive Mobility Level: Walk in room Distance Walked (feet): 5 ft Level of Assistance: Assist X1 Assistive Device: None Time Tolerated: 0-10 minutes Activity Limited By: Fatigue;Weakness;Lines / Medical Devices Subjective Pertinent Dx per Physician: s/p CABG/MAZE/ ligation SETH on Dr. Pal on 02/16/18 admitted 03/25/18 with atrial fibrillation and left pleural effusion. Chest tube placed 03/26. Precautions: Falls;O2 Requirement (chest tube) Pain / Complaints: Patient agrees to participate in therapy Objective Psychosocial Status: Willing and Cooperative to Participate Persons Present: Spouse Home Living Type of Home: House Home Layout: One Level;Ramped Entrance Prior Function Level Of [place]: Independent with ADLs and functional transfers Lives With: Spouse Other Function Comments: Spouse in power scooter. Patient states she was not having difficulty with ADLS or mobility at home since CABG ADL's Where Assessed: Chair Eating Assist: Independent Eating Deficits: No Assist Needed Functional Transfer Assist: Minimal Assist (contact guard) Functional Transfer Deficits: Steadying;Increased Time to Complete Comment: Min assist for bed mobility as patient requested therapists had to assist with trunk. Patient able to take steps to chair with contact guard assist for steadying. Activity Tolerance Endurance: 1/5 Tolerates <10 Minutes Exercises, No Significant Change in Vital Signs Sitting Balance: 3+/5 Sits w/o UE Support for 30 Seconds or Greater Cognition Overall Cognitive Status: WFL to Adequately Complete Self Care Tasks Safely Education Persons Educated: Patient Teaching Methods: Verbal Instruction Patient Response: Verbalized and Demo Understanding Topics: Role of OT, Goals for Therapy Goal Formulation: With Patient Assessment Assessment: Decreased ADL Status;Decreased Endurance;Decreased Self-Care Trans; Decreased High-Level ADLs Prognosis: Good;w/Cont OT s/p Acute Discharge Goal Formulation: Patient AM-PAC 6 Clicks Daily Activity Inpatient Putting on and taking off regular lower body clothes?: A Lot Bathing (Including washing, rinsing, drying): A Lot Toileting, which includes using toilet, bedpan, or urinal: A Little Putting on and taking off regular upper body clothing: A Little Taking care of personal grooming such as brushing teeth: None Eating meals?: None Daily Activity Raw Score: 18 Standardized (t-scale) score: 38.66 CMS 0-100% Score: 46.65 CMS G Code Modifier: CK Plan OT Frequency: 5x/week OT Plan for Next Visit: grooming at sink, ambulate to toilet, lower body dressing in chair ADL Goals Patient Will Perform Grooming: Standing at Sink;w/ Stand By Assist Patient Will Perform Toileting: w/ Stand By Assist Functional Transfer Goals Pt Will Perform All Functional Transfers: w/ Stand By Assist OT Discharge Recommendations OT Discharge Recommendations: Home with family assist, Home with Home Health Equipment Recommendations: Too early to be determined Therapist: Linda Joya OTR/L [id number] Date: 03/30/2018 * Keanu Jarquin PA-C - 03/30/2018 9:36 AM CDT CTS update note: Ms. Fields is s/p CABG/MAZE/ ligation SETH on Dr. Pal on 02/16/18 admitted 03/25 with atrial fibrillation and left pleural effusion. GI consulted for anticoagulation recommendations as she has h/o GI bleeds. 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 VS: afebrile, A fib/Aflutter rate 70-80s, BP 90-130s, 92% on 2-3L On cardizem gtt @ 5mg/hr. Labs: Hgb 8.5-->7.9-->8.8-->8.7-->8.4 Cr 1.6-->1.49-->2.05-->2.45-->2.80, diuresis held L pigtail placed in IR 03/26. CXR today with continued L effusion. Pleural CT with 212cc/24hr out. Plan: 1. Cont L pigtail for now. Will reassess output tomorrow. If <100cc/24hr will dc tube. 2. 2V CXR tomorrow, followed by daily portable CXRs (ordered) until CT out. 3. Okay to start anticoagulation from CTS standpoint with CT in place. Will be good marker for risk of re-accumulation of pleural effusion. 4. Cont management per primary team. * Skinny Lugo RT - 03/30/2018 2:12 AM CDT RT Adult Assessment Note NAME:Lucrecia Fields :1955 AGE: 62 y.o. ADMISSION DATE: 03/25/2018 DAYS ADMITTED: LOS: 5 days RT Treatment Plan: Protocol Plan: Procedures PEP Therapy: Place a nursing order for "IS Q1h While Awake" for any of Lung Expansion indicators Oxygen/Humidity: O2 to keep SpO2 > 92% Monitoring: Pulse oximetry BID & PRN Additional Comments: Impressions of the patient: sleepy Intervention(s)/outcome(s): venti mask 40% Vital Signs: Pulse: Pulse: 75 RR: Respirations: 18 PER MINUTE SpO2: SpO2: 97 % O2 Device: $$ O2 Device: Venturi Mask O2%: O2 Percent: 40 % Breath Sounds: c/d Respiratory Effort: Respiratory Effort: Non-Labored * Sri Karimi RN - 03/29/2018 11:30 PM CDT 03/29/18 6022 03/29/18 2330 Vitals SpO2 (!) 88 % 94 % O2 Delivery NC NC O2 Liter Flow 3 lpm 4 lpm Patient sleeping with mouth open with repeated periods of oxygen dropping 88-92% , oxygen turned up to 4 L and readjusted in bed. Will continue to monitor. Update 0145 Patient continues to have periods of apnea causing sats to drop temporarily, respiratory therapy consulted and switching to mask to help patient maintain oxygenation with sleep. Approx 0200 patient called out and upon entering room patient had removed mask, stated she did not want it on but was agreeable to placing NC back on. Throughout morning pateint was titrated back down to 3 L via NC will continue to monitor patient. * Giovanni Brooks DO - 03/29/2018 7:16 PM CDT General Progress Note Name: Lucrecia Fields Today's Date: 03/29/2018 Admission Date: 03/25/2018 LOS: 4 days Assessment/Plan: Principal Problem: Atrial fibrillation with rapid ventricular response (HCC) Active Problems: Type 2 diabetes mellitus with circulatory disorder, without long-term 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 (HCC) PAF (paroxysmal atrial fibrillation) (HCC) Chronic gastrointestinal bleeding Transfusion-dependent anemia CAD (coronary artery disease), [place] coronary artery HLD (hyperlipidemia) Hypothyroidism Essential hypertension Pleural effusion on left Left leg cellulitis Lucrecia Fields is a 62 y.o. female, the patient has a past medical history of Acquired hypothyroidism; Arthritis; Back pain; Bleeding disorder (HCC); Coronary artery disease; Diabetes mellitus (HCC); Hypertension; Stomach disorder ; and Vision decreased. presenting with shortness of breath, dizziness/ lightheadedness, chills, nausea, lower extremity swelling and palpitations. 1. Atrial fluter, not on AC - has had intermittent atrial flutter since CABG - not on AC due to history of GIB - has had palpitations for about 1 week prior to presentation, no CP or syncope - EKG on admission: atrial fibrillation, rate 98, no ST changes - O/N atrial flutter, and atrial fibrillation, intermittently -EGD showing 3 columns of esophageal varices, mild portal hypertensive gastropathy without bleeding, gave without bleeding and gastric antrum, mild, and possible Long's esophagus, no biopsies taken Plan for today: > Continue ASA and Metoprolol, diltiazem drip, titrate heart rate from 60-100 > Plan on switching diltiazem drip to p.o. on 03/30 > EP consulted, unlikely to intervene until Chest tube and endoscopy completed , rate control for now > GI OK with anticoagulation as GAVE will require sequential ablative therapies > CTS okay with anticoagulation, we will wait for chest tube to be pulled 2. Shortness of Breath/Lower extremity swelling, concern for DVT - LLE swelling greater than right since surgery - has history of DVT - BNP 327 on admission - CXR with persistent left sided pleural effusion - IR drain and Chest tube on left side, 120 cc overnight -CTS okay with anticoagulation while chest tube is in place Plan for today: > Discontinue Lasix drip, held Lasix today due to AK I > BC pending > f/u urine output 3. Cellulitis of lower extremity, left -Amoxicillin started on 03/26, end 03/29 -Could potentially be adding to AK I Plan: >Discontinue amoxicillin >Start doxycycline, end 04/04/18 3. CAD s/p CABG 02/16/18 - no chest pain, surgical scar well healing - trop/EKG negative for ischemia on admission Plan for today: > Continue ASA, BB > monitor 4. History of GIB - has had extensive work up and evaluation by GI - frequent upper/lower GIB - requires frequent blood transfusions Plan for today: > GI consulted, EGD on Thursday, ok to use anticoagulation > transfuse 1U pRBC on 03/26 5. Hypothyroidism > Continue Synthroid 6. 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 HTN > Continue metoprolol 8. 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 Diet: Cardiac Diet Prophylaxis: DVT: SCD Stress ulcer: PPI Code status: Full Code Disposition: admit to CV1 Patient seen and discussed with Dr. Miner. Giovanni Brooks DO Internal medicine PGY 1 Pager [phone] Subjective Patient seen and examined this morning. No acute events overnight. Very anxious this morning mainly due to having chest tube still in. States that shortness of breath is improved, lower extremity edema is baseline for now. No fevers chills, nausea, vomiting, chest pain, chest tightness, abdominal pain, diarrhea, constipation. Medications Scheduled Meds: aspirin chewable tablet 81 mg 81 mg Oral QDAY cetirizine (ZYRTEC) tablet 10 mg 10 mg Oral QAM8 doxycycline (VIBRAMYCIN) tablet 100 mg 100 mg Oral BID folic acid (FOLVITE) tablet 1 mg 1 mg Oral QDAY insulin aspart U-100 (NOVOLOG FLEXPEN) injection PEN 0-14 Units 0-14 Units Subcutaneous ACHS insulin NPH (HUMULIN N KwikPen) injection PEN 18 Units 18 Units Subcutaneous QDAY(07) levothyroxine (SYNTHROID) tablet 175 mcg 175 mcg Oral QDAY 30 min before breakfast metoprolol tartrate (LOPRESSOR) tablet 100 mg 100 mg Oral BID nystatin (NYSTOP) topical powder Topical BID pantoprazole DR (PROTONIX) tablet 80 mg 80 mg Oral QDAY(21) rosuvastatin (CRESTOR) tablet 40 mg 40 mg Oral QDAY senna/docusate (SENOKOT-S) tablet 2 tablet 2 tablet Oral BID sucralfate (CARAFATE) tablet 1 g 1 g Oral QID Continuous Infusions: diltiazem (cardIZEM) 125 mg in sodium chloride 0.9% (NS) 125 mL IV drip ( std conc) 5 mg/hr (03/29/18 1442) lactated ringers infusion sodium chloride 0.9 % infusion PRN and Respiratory Meds:acetaminophen Q6H PRN, fentaNYL citrate PF Intra- procedure Med, hydrOXYzine TID PRN, midazolam Intra-procedure Med, nitroglycerin Q5 MIN PRN, ondansetron Q8H PRN, traMADol Q6H PRN Review of Systems: A 14 point review of systems was negative except for: Discussed in subjective Objective: Vital Signs: Last Filed Vital Signs: 24 Hour Range BP: 129/72 (03/29 1400) Temp: 36.5 C (97.7 F) (03/29 1400) Pulse: 81 (03/29 1400) Respirations: 18 PER MINUTE (03/29 1400) SpO2: 98 % (03/29 1400) O2 Delivery: Nasal Cannula (03/29 1400) SpO2 Pulse: 81 (03/29 1200) Height: 162.6 cm (64.02") (03/29 1044) BP: (84-138)/(34-81) Temp: [36.4 C (97.6 F)-36.8 C (98.3 F)] Pulse: [59-84] Respirations: [14 PER MINUTE-23 PER MINUTE] SpO2: [92 %-100 %] O2 Delivery: Nasal Cannula Intensity Pain Scale (Self Report): 4 (03/28/18 2330) Vitals: 03/28/18 0924 03/29/18 0446 03/29/18 1044 Weight: 112.6 kg (248 lb 4 oz) 112.3 kg (247 lb 9.6 oz) 113.8 kg (250 lb 14.1 oz ) Intake/Output Summary: (Last 24 hours) Intake/Output Summary (Last 24 hours) at 03/29/18 1916 Last data filed at 03/29/18 1438 Gross per 24 hour Intake 500 ml Output 180 ml Net 320 ml Stool Occurrence: 1 Physical Exam General: Alert, cooperative, no distress, appears stated age, uncomfortable Eyes: Conjunctivae/corneas clear. EOMI bilaterally, no conjunctival injection Lungs: Clear to auscultation bilaterally decreased breath sounds on the left Heart: Regular rhythm, tachycardic, S1, S2 normal, no appreciable murmur Abdomen: Soft, non-tender. Bowel sounds normal. No masses. No organomegaly. Extremities: Bilateral lower extremities. 1+ pitting edema bilaterally, mildly worse on the left side, there is a scar assumably where the vein graft was harvested, erythema improved, without any purulence noted Skin: Scar on left leg from saphenous vein graft without purulence, there is erythema, warmth is equal bilaterally Neurologic: CNII - XII intact. Normal strength, sensation and reflexes throughout. Psych: A and O x4 normal mood and affect Lab Review 24-hour labs: Results for orders placed or performed during the hospital encounter of (from the past 24 hour(s)) POC GLUCOSE Collection Time: 03/28/18 9:23 PM Result Value Ref Range Glucose, POC 241 (H) 70 - 100 MG/DL CBC AND DIFF Collection Time: 03/29/18 5:00 AM Result Value Ref Range White Blood Cells 7.6 4.5 - 11.0 K/UL RBC 2.76 (L) 4.0 - 5.0 M/UL Hemoglobin 8.7 (L) 12.0 - 15.0 GM/DL Hematocrit 26.5 (L) 36 - 45 % MCV 95.9 80 - 100 FL MCH 31.5 26 - 34 PG MCHC 32.8 32.0 - 36.0 G/DL RDW 18.6 (H) 11 - 15 % Platelet Count 194 150 - 400 K/UL MPV 9.1 7 - 11 FL Neutrophils 72 41 - 77 % Lymphocytes 13 (L) 24 - 44 % Monocytes 10 4 - 12 % Eosinophils 5 0 - 5 % Basophils 0 0 - 2 % Absolute Neutrophil Count 5.50 1.8 - 7.0 K/UL Absolute Lymph Count 1.00 1.0 - 4.8 K/UL Absolute Monocyte Count 0.80 0 - 0.80 K/UL Absolute Eosinophil Count 0.30 0 - 0.45 K/UL Absolute Basophil Count 0.00 0 - 0.20 K/UL COMPREHENSIVE METABOLIC PANEL Collection Time: 03/29/18 5:00 AM Result Value Ref Range Sodium 132 (L) 137 - 147 MMOL/L Potassium 4.7 3.5 - 5.1 MMOL/L Chloride 100 98 - 110 MMOL/L Glucose 251 (H) 70 - 100 MG/DL Blood Urea Nitrogen 34 (H) 7 - 25 MG/DL Creatinine 2.45 (H) 0.4 - 1.00 MG/DL Calcium 9.3 8.5 - 10.6 MG/DL Total Protein 7.5 6.0 - 8.0 G/DL Total Bilirubin 0.6 0.3 - 1.2 MG/DL Albumin 3.2 (L) 3.5 - 5.0 G/DL Alk Phosphatase 66 25 - 110 U/L AST (SGOT) 27 7 - 40 U/L CO2 25 21 - 30 MMOL/L ALT (SGPT) 7 7 - 56 U/L Anion Gap 7 3 - 12 eGFR Non 20 (L) >60 mL/min eGFR 24 (L) >60 mL/min POC GLUCOSE Collection Time: 03/29/18 8:37 AM Result Value Ref Range Glucose, POC 215 (H) 70 - 100 MG/DL POC GLUCOSE Collection Time: 03/29/18 10:32 AM Result Value Ref Range Glucose, POC 203 (H) 70 - 100 MG/DL POC GLUCOSE Collection Time: 03/29/18 11:33 AM Result Value Ref Range Glucose, POC 214 (H) 70 - 100 MG/DL CREATININE-URINE RANDOM Collection Time: 03/29/18 4:02 PM Result Value Ref Range Creatinine, Random 194 MG/DL SODIUM-URINE RANDOM Collection Time: 03/29/18 4:02 PM Result Value Ref Range Sodium, Random 12 MMOL/L UREA NITROGEN-URINE RANDOM Collection Time: 03/29/18 4:02 PM Result Value Ref Range Urea Nitrogen 247 MG/DL OSMOLALITY-URINE RANDOM Collection Time: 03/29/18 4:02 PM Result Value Ref Range Osmolality-Urine 342 50 - 1,400 MOS/KG POC GLUCOSE Collection Time: 03/29/18 5:07 PM Result Value Ref Range Glucose, POC 207 (H) 70 - 100 MG/DL Point of Care Testing (Last 24 hours) Glucose: (!) 251 (03/29/18 0500) POC Glucose (Download): (!) 207 (03/29/18 1707) Radiology and other Diagnostics Review: None Giovanni Brooks DO Internal medicine PGY 1 Pager [phone] Associated attestation - Deepak Miner MD - 03/29/2018 7:53 PM CDT Cardiology Staff Note Lucrecia Fields is a 62-year-old female with a history of CAD status post CABG on with a PRIDE to LAD, SVG to OM and PLV, and SVG to PDA, PAF, hypertension , dyslipidemia, diabetes, hypothyroidism, CKD, and cellulitis. 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 She has not been anticoagulated for her atrial fib due to her bleeding issues. She also had a persistent left pleural effusion which is been present since her bypass surgery. Her left heart catheterization in 01/2018 showed the left main had an 80% lesion , the LAD had moderate disease, the circumflex had a 80% lesion, RCA had a 70% lesion. Her last echo was on 02/13/2018, showed the LV was moderately dilated with probable normal EF, the RV was moderately dilated, there is MAC with preserved mitral valve function. She is admitted with A. anjum with RVR. She also had volume overload. Since admission last week, she has been rate controlled. She has not been anticoagulated as of yet. She had a chest tube placed by IR, it is still in place. She is followed by GI, she underwent an EGD today, which showed small varices, mild hypertensive gastropathy, and Long's esophagus. Once we have a better idea of her risk for anticoagulation, and we get the chest tube pulled, we will plan on a rhythm control strategy. At that point, she will probably require antiarrhythmic therapy. ATTESTATION I personally performed the dempsey portions of the E/M visit, discussed case with resident and concur with resident documentation of history, physical exam, assessment, and treatment plan unless otherwise noted. Staff name: Deepak Miner MD Date: 03/29/2018 * Lita Espinoza RN - 03/29/2018 4:39 PM CDT RN paged CTS multiple times throughout the day (per CV1 orders) regarding patient's chest tube. 1634:RN spoke with Farheen Nash regarding no orders for patient's chest tube. Orders for chest tube placed. Will continue to monitor. * Liat Espinoza RN - 03/29/2018 2:19 PM CDT Patient arrived to the unit via cart with transportation. Patient's chest tube chamber lying on its side. RN changed chest tube chamber. Patient refusing am medications that were on hold due to EGD. CV1 notified. Will continue to monitor. * Kareen Mckenzie RN - 03/29/2018 12:16 PM CDT Report given to Lita MACKAY. Pt transportation to take pt back to her room via cart.Chest tube to portable suction. Oxygen 3 L/NC. Cardizem ggt infusing per D.O. * Kareen Mckenzie RN - 03/29/2018 11:45 AM CDT EGD/Upper EUS/ERCP/Antegrade Enteroscopy Post Upper Endoscopy Instructions Start with small sips of water. If tolerated well, you may advance your diet as tolerated or directed by your physician. -You may have a sore throat after the procedure for 2-3 days. Try sucrets or lozenges to help ease the pain. If it continues please contact us. -If you feel feverish, have a temperature of 101 degrees or higher, persistent nausea and vomiting, abdominal pain or dark stools; please notify your nurse or GI physician. -You may have abdominal cramping following the procedure this can be relieved by belching or passing air. -If you have redness or swelling at the IV site, place a warm, wet washcloth over the affected areas for 15 minutes, 3-4 times a day until the redness subsides. If symptoms continue for 2-3 days, contact your regular physician. - If you have bleeding from your mouth, over 2 tablespoons and increasing, please notify your physician. A small amount of bleeding is normal if a biopsy or polyps were taken. If you are vomiting blood you need to seek immediate medical attention. - You may resume all your routine medications, if medications need to be held your physician and/or nurse will notify you post procedure. SPECIFIC INSTRUCTIONS INPATIENTS: Ask for help when you get up in your room, as you may still be drowsy from your sedation. Should you have any questions or concerns after your procedure please call M-F 8am-5:00 pm. After 5:00 pm, holidays or weekends call [phone] and ask for the GI Doctor masonry contractor. * Lita Espinoza RN - 03/29/2018 10:07 AM CDT Pt off unit via cart with transportation. Telemetry on standby. Chest tube attached to portable suction. * Lita Espinoza RN - 03/29/2018 9:41 AM CDT 0845 CV1 paged regarding patient's chest tube. RN unable to find orders regarding patient's chest tube. Orders for RN to page CTS. 0900 and 0928 CTS rotating pager paged. 0930 CTS fellow paged. 0950: CV1 paged. RN unable to get ahold of CTS. RN informed team that patient needs orders for chest tube and the patient will be hooked up to portable suction when being transported for her EGD. Patient also c/o feeling nauseated. Okay to give early dose of PRN zofran per Dr. Chan (see eMAR). * Elena Shen PA-C - 03/29/2018 8:25 AM CDT CTS CTS progress note Ms. Fields is s/p CABG/MAZE/ ligation SETH on Dr. Pal on 02/16/18 admitted with atrial fibrillation and left pleural effusion. GI consulted for anticoagulation recommendations as she has h/o GI bleeds. VS: afebrile, A fib/ST rate 120s, BP 110-120s, 92% on 3L On cardizem gtt @ 5mg/hr. Labs: Hgb 8.5-->7.9-->8.8-->8.7 Cr 1.6-->1.49-->2.05-->2.45 Lasix 20mg PO BID (-1kg since admit) Chest xray-large left pleural effusion-->L pigtail placed in IR 03/26 - 200cc/ 24hr. Plan: 1. Cont L pigtail for now. Will reassess output tomorrow. If <100cc/24hr will dc tube. 2. Cont management per primary team. * Ayana Wilson RN - 03/29/2018 4:59 AM CDT IVT for labs * Sarita Curiel PA-C - 03/28/2018 2:52 PM CDT CTS CTS progress note Ms. Fields is s/p CABG/MAZE/ ligation SETH on Dr. Pal on 02/16/18 admitted with atrial fibrillation and left pleural effusion. GI consulted for anticoagulation recommendations as she has h/o GI bleeds. VS: afebrile, A fib/ST rate 120s, BP 110-120s, 92% on 3L On cardizem gtt @ 10mg/hr. Labs: Hgb 8.5-->7.9-->8.8 Cr 1.6-->1.49-->2.05 Chest xray-large left pleural effusion-->L pigtail placed in IR 03/26 - 200cc/ 24hr. Plan: 1. Cont L pigtail for now. Will reassess output tomorrow. If <100cc/24hr will dc tube. 2. Cont management per primary team. * Deepak Rubin MD - 03/28/2018 11:14 AM CDT General Progress Note Name: Lucrecia Fields Today's Date: 03/28/2018 Admission Date: 03/25/2018 LOS: 3 days Assessment/Plan: Principal Problem: Atrial fibrillation with rapid ventricular response (HCC) Active Problems: Type 2 diabetes mellitus with circulatory disorder, without long-term 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 (HCC) PAF (paroxysmal atrial fibrillation) (HCC) Chronic gastrointestinal bleeding Transfusion-dependent anemia CAD (coronary artery disease) HLD (hyperlipidemia) Hypothyroidism Hypertension Pleural effusion on left Lucrecia Fields is a 62 y.o. female, the patient has a past medical history of Acquired hypothyroidism; Arthritis; Back pain; Bleeding disorder (HCC); Coronary artery disease; Diabetes mellitus (HCC); Hypertension; Stomach disorder ; and Vision decreased. presenting with shortness of breath, dizziness/ lightheadedness, chills, nausea, lower extremity swelling and palpitations. 1. Atrial fluter, not on AC - has had intermittent atrial flutter since CABG - not on AC due to history of GIB - has had palpitations for about 1 week prior to presentation, no CP or syncope - EKG on admission: atrial fibrillation, rate 98, no ST changes - O/N atrial flutter, and atrial fibrillation, intermittently Plan for today: > Continue ASA and Metoprolol, diltiazem drip, titrate heart rate from 60-100 > rate control only now, still tachycardic > EP consulted, unlikely to intervene until Chest tube and endoscopy completed , rate control for now > GI OK with anticoagulation as GAVE will require sequential ablative therapies > Would start heparin drip for anticoagulation if thought to be necessary 2. Shortness of Breath/Lower extremity swelling, concern for DVT - LLE swelling greater than right since surgery - has history of DVT - BNP 327 on admission - CXR with persistent left sided pleural effusion - IR drain and Chest tube on left side, 120 cc overnight -CTS okay with anticoagulation while chest tube is in place Plan for today: > Discontinue Lasix drip, restart Lasix p.o. 20 twice daily > can increase dose of lasix if SOB > BC pending > f/u urine output 3. CAD s/p CABG 02/16/18 - no chest pain, surgical scar well healing - trop/EKG negative for ischemia on admission Plan for today: > Continue ASA, BB > monitor 4. History of GIB - has had extensive work up and evaluation by GI - frequent upper/lower GIB - requires frequent blood transfusions Plan for today: > GI consulted, EGD on Thursday, ok to use anticoagulation, will need to discuss with GI if anticoagulation will increase yield an EGD -If not we do not plan on starting anticoagulation now > transfuse 1U pRBC on 03/26 5. Hypothyroidism > Continue Synthroid 6. 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 HTN > Continue metoprolol 8. DMII - YARD WORKER regimen: NPH 14u QD, Novolog 4u TID w/ meals > Continue YARD WORKER NPH, add on mid dose correction factor Fluids, electrolytes and Nutrition: IVF: no IVF Electrolytes: Monitor and replace PRN. Diet: Cardiac Diet Prophylaxis: DVT: SCD Stress ulcer: PPI Code status: Full Code Disposition: admit to CV1 Patient seen and discussed with Dr. Rubin. Giovanni Brooks DO Internal medicine PGY 1 Pager [phone] Cardiology Attending Staff Attestation I have personally interviewed and examined the patient, have reviewed the documentation, and have jointly formulated the assessment and plan with the resident. Deepak Rubin M.D. Subjective Patient seen and examined this morning. No acute events overnight. States shortness of breath is somewhat improved. LE edema improved from yesterday and pain has improved from yesterday. Chest tube is bothering pt. yesterday did not eat lunch dinner this morning did not eat breakfast due to nausea. Confirms that her allergy to diltiazem is only rash, nausea and vomiting. Denies any anaphylactic reaction such as throat swelling or previous need for epinephrine. Medications Scheduled Meds: amoxicillin (AMOXIL) capsule 500 mg 500 mg Oral TID aspirin chewable tablet 81 mg 81 mg Oral QDAY cetirizine (ZYRTEC) tablet 10 mg 10 mg Oral QAM8 folic acid (FOLVITE) tablet 1 mg 1 mg Oral QDAY furosemide (LASIX) tablet 20 mg 20 mg Oral BID(9-17) insulin aspart U-100 (NOVOLOG FLEXPEN) injection PEN 0-14 Units 0-14 Units Subcutaneous ACHS insulin NPH (HUMULIN N KwikPen) injection PEN 14 Units 14 Units Subcutaneous QDAY(07) levothyroxine (SYNTHROID) tablet 175 mcg 175 mcg Oral QDAY 30 min before breakfast metoprolol tartrate (LOPRESSOR) tablet 100 mg 100 mg Oral BID nystatin (NYSTOP) topical powder Topical BID pantoprazole DR (PROTONIX) tablet 80 mg 80 mg Oral QDAY(21) rosuvastatin (CRESTOR) tablet 40 mg 40 mg Oral QDAY senna/docusate (SENOKOT-S) tablet 2 tablet 2 tablet Oral BID sucralfate (CARAFATE) tablet 1 g 1 g Oral QID Continuous Infusions: diltiazem (cardIZEM) 125 mg in sodium chloride 0.9% (NS) 125 mL IV drip ( std conc) PRN and Respiratory Meds:acetaminophen Q6H PRN, fentaNYL citrate PF Intra- procedure Med, midazolam Intra-procedure Med, nitroglycerin Q5 MIN PRN, ondansetron Q8H PRN, traMADol Q6H PRN Review of Systems: A 14 point review of systems was negative except for: Discussed in subjective Objective: Vital Signs: Last Filed Vital Signs: 24 Hour Range BP: 113/45 (03/28 702) Temp: 36.9 C (98.5 F) (03/28 702) Pulse: 120 (03/28 702) Respirations: 18 PER MINUTE (03/28 702) SpO2: 90 % (03/28 702) O2 Delivery: None (Room Air) (03/28 702) Height: 162.6 cm (64") (03/28 924) BP: (113-128)/(45-77) Temp: [36.2 C (97.2 F)-36.9 C (98.5 F)] Pulse: [108-121] Respirations: [16 PER MINUTE-18 PER MINUTE] SpO2: [90 %-98 %] O2 Delivery: None (Room Air) Intensity Pain Scale (Self Report): 7 (03/28/18 0552) Vitals: 03/25/18 1838 03/26/18 0448 03/28/18 0924 Weight: 113 kg (249 lb 2 oz) 113.1 kg (249 lb 6.4 oz) 112.6 kg (248 lb 4 oz) Intake/Output Summary: (Last 24 hours) Intake/Output Summary (Last 24 hours) at 03/28/18 1114 Last data filed at 03/28/18 0935 Gross per 24 hour Intake 603.25 ml Output 1075 ml Net -471.75 ml Stool Occurrence: 1 Physical Exam General: Alert, cooperative, no distress, appears stated age, uncomfortable Eyes: Conjunctivae/corneas clear. EOMI bilaterally, no conjunctival injection Lungs: Clear to auscultation bilaterally decreased breath sounds on the left Heart: Regular rhythm, tachycardic, S1, S2 normal, no appreciable murmur Abdomen: Soft, non-tender. Bowel sounds normal. No masses. No organomegaly. Extremities: Bilateral lower extremities. 1+ pitting edema bilaterally, mildly worse on the left side, there is a scar assumably where the vein graft was harvested, erythematous, warm to touch, without any purulence noted Skin: Scar on left leg from saphenous vein graft without purulence, there is erythema, warmth is equal bilaterally Neurologic: CNII - XII intact. Normal strength, sensation and reflexes throughout. Psych: A and O x4 normal mood and affect Lab Review 24-hour labs: Results for orders placed or performed during the hospital encounter of (from the past 24 hour(s)) POC GLUCOSE Collection Time: 03/27/18 6:31 PM Result Value Ref Range Glucose, POC 201 (H) 70 - 100 MG/DL POC GLUCOSE Collection Time: 03/27/18 9:23 PM Result Value Ref Range Glucose, POC 200 (H) 70 - 100 MG/DL CBC AND DIFF Collection Time: 03/28/18 4:50 AM Result Value Ref Range White Blood Cells 5.5 4.5 - 11.0 K/UL RBC 2.79 (L) 4.0 - 5.0 M/UL Hemoglobin 8.8 (L) 12.0 - 15.0 GM/DL Hematocrit 27.0 (L) 36 - 45 % MCV 96.9 80 - 100 FL MCH 31.5 26 - 34 PG MCHC 32.5 32.0 - 36.0 G/DL RDW 19.3 (H) 11 - 15 % Platelet Count 157 150 - 400 K/UL MPV 8.3 7 - 11 FL Neutrophils 72 41 - 77 % Lymphocytes 14 (L) 24 - 44 % Monocytes 9 4 - 12 % Eosinophils 5 0 - 5 % Basophils 0 0 - 2 % Absolute Neutrophil Count 3.90 1.8 - 7.0 K/UL Absolute Lymph Count 0.80 (L) 1.0 - 4.8 K/UL Absolute Monocyte Count 0.50 0 - 0.80 K/UL Absolute Eosinophil Count 0.30 0 - 0.45 K/UL Absolute Basophil Count 0.00 0 - 0.20 K/UL COMPREHENSIVE METABOLIC PANEL Collection Time: 03/28/18 4:50 AM Result Value Ref Range Sodium 134 (L) 137 - 147 MMOL/L Potassium 4.4 3.5 - 5.1 MMOL/L Chloride 100 98 - 110 MMOL/L Glucose 232 (H) 70 - 100 MG/DL Blood Urea Nitrogen 31 (H) 7 - 25 MG/DL Creatinine 2.05 (H) 0.4 - 1.00 MG/DL Calcium 9.3 8.5 - 10.6 MG/DL Total Protein 7.3 6.0 - 8.0 G/DL Total Bilirubin 0.6 0.3 - 1.2 MG/DL Albumin 3.4 (L) 3.5 - 5.0 G/DL Alk Phosphatase 68 25 - 110 U/L AST (SGOT) 16 7 - 40 U/L CO2 26 21 - 30 MMOL/L ALT (SGPT) 6 (L) 7 - 56 U/L Anion Gap 8 3 - 12 eGFR Non 25 (L) >60 mL/min eGFR 30 (L) >60 mL/min POC GLUCOSE Collection Time: 03/28/18 9:24 AM Result Value Ref Range Glucose, POC 219 (H) 70 - 100 MG/DL Point of Care Testing (Last 24 hours) Glucose: (!) 232 (03/28/18 0450) POC Glucose (Download): (!) 219 (03/28/18 0042) Radiology and other Diagnostics Review: None Giovanni Brooks, Internal medicine PGY 1 Pager [phone] * Ayana Wilson RN - 03/28/2018 4:51 AM CDT IVT for labs * Deepak Rubin MD - 03/27/2018 8:52 AM CDT General Progress Note Name: uLcrecia Fields Today's Date: 03/27/2018 Admission Date: 03/25/2018 LOS: 2 days Assessment/Plan: Principal Problem: Atrial fibrillation with rapid ventricular response (HCC) Active Problems: Type 2 diabetes mellitus with circulatory disorder, without long-term 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 (HCC) PAF (paroxysmal atrial fibrillation) (HCC) Chronic gastrointestinal bleeding Transfusion-dependent anemia CAD (coronary artery disease) HLD (hyperlipidemia) Hypothyroidism Hypertension Pleural effusion on left Lucrecia Fields is a 62 y.o. female, the patient has a past medical history of Acquired hypothyroidism; Arthritis; Back pain; Bleeding disorder (HCC); Coronary artery disease; Diabetes mellitus (HCC); Hypertension; Stomach disorder ; and Vision decreased. presenting with shortness of breath, dizziness/ lightheadedness, chills, nausea, lower extremity swelling and palpitations. 1. 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 Shortness of Breath/Lower extremity swelling, concern for DVT - LLE swelling greater than right since surgery - has history of DVT - BNP 327 on admission - CXR with persistent left sided pleural effusion - IR drain and Chest tube on left side Plan for today: > lasix drip 5mg/hr > can increase dose of lasix if SOB > 550cc L chest tube output > BC pending > f/u urine output 3. CAD s/p CABG 02/16/18 - no chest pain, surgical scar well healing - trop/EKG negative for ischemia on admission Plan for today: > Continue ASA, BB > monitor 4. History of GIB - has had extensive work up and evaluation by GI - frequent upper/lower GIB - requires frequent blood transfusions Plan for today: > GI consulted, EGD on Thursday, ok to use anticoagulation > transfuse 1U pRBC on 03/26 5. Hypothyroidism > Continue Synthroid 6. 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 HTN > Continue metoprolol 8. DMII - YARD WORKER regimen: NPH 14u QD, Novolog 4u TID w/ meals > Continue YARD WORKER NPH, add on SSI Fluids, electrolytes and Nutrition: IVF: no IVF Electrolytes: Monitor and replace PRN. Diet: Cardiac Diet Prophylaxis: DVT: SCD Stress ulcer: PPI Code status: Full Code Disposition: admit to CV1 Patient seen and discussed with Dr. Rubin. Giovanni Brooks DO Internal medicine PGY 1 Pager [phone] Cardiology Attending Staff Attestation I have personally interviewed and examined the patient, have reviewed the documentation, and have jointly formulated the assessment and plan with the resident. Deepak Rubin M.D. Subjective Patient seen and examined this morning. No acute events overnight. States shortness of breath is somewhat improved. LE edema improved from yesterday and pain has improved from yesterday. Chest tube is bothering pt. No other complaints this am. Medications Scheduled Meds: amoxicillin (AMOXIL) capsule 500 mg 500 mg Oral TID aspirin chewable tablet 81 mg 81 mg Oral QDAY cetirizine (ZYRTEC) tablet 10 mg 10 mg Oral QAM8 folic acid (FOLVITE) tablet 1 mg 1 mg Oral QDAY furosemide (LASIX) injection 40 mg 40 mg Intravenous ONCE insulin aspart U-100 (NOVOLOG FLEXPEN) injection PEN 0-7 Units 0-7 Units Subcutaneous ACHS insulin NPH (HUMULIN N KwikPen) injection PEN 14 Units 14 Units Subcutaneous QDAY(07) levothyroxine (SYNTHROID) tablet 175 mcg 175 mcg Oral QDAY 30 min before breakfast metoprolol tartrate (LOPRESSOR) tablet 100 mg 100 mg Oral BID nystatin (NYSTOP) topical powder Topical BID pantoprazole DR (PROTONIX) tablet 80 mg 80 mg Oral QDAY(21) rosuvastatin (CRESTOR) tablet 40 mg 40 mg Oral QDAY senna/docusate (SENOKOT-S) tablet 2 tablet 2 tablet Oral BID sucralfate (CARAFATE) tablet 1 g 1 g Oral QID Continuous Infusions: furosemide (LASIX) 500 mg in 50 mL IV drip syr (max conc) 5 mg/hr (03/26/18 1630) PRN and Respiratory Meds:acetaminophen Q6H PRN, fentaNYL citrate PF Intra- procedure Med, midazolam Intra-procedure Med, nitroglycerin Q5 MIN PRN, ondansetron Q8H PRN, traMADol Q6H PRN Review of Systems: A 14 point review of systems was negative except for: Discussed in subjective Objective: Vital Signs: Last Filed Vital Signs: 24 Hour Range BP: 117/82 (03/27 0737) Temp: 36.3 C (97.3 F) (03/27 737) Pulse: 121 (03/27 737) Respirations: 18 PER MINUTE (03/27 737) SpO2: 92 % (03/27 737) O2 Delivery: Nasal Cannula (03/27 737) SpO2 Pulse: 120 (03/26 1245) BP: (101-145)/(62-92) Temp: [36.3 C (97.3 F)-36.9 C (98.4 F)] Pulse: [109-125] Respirations: [14 PER MINUTE-24 PER MINUTE] SpO2: [88 %-100 %] O2 Delivery: Nasal Cannula Intensity Pain Scale (Self Report): 8 (03/27/18 0800) Vitals: 03/25/18 1433 03/25/18 1838 03/26/18 0448 Weight: 113.8 kg (250 lb 12.8 oz) 113 kg (249 lb 2 oz) 113.1 kg (249 lb 6.4 oz) Intake/Output Summary: (Last 24 hours) Intake/Output Summary (Last 24 hours) at 03/27/18 0852 Last data filed at 03/27/18 0649 Gross per 24 hour Intake 798.32 ml Output 1165 ml Net -366.68 ml Stool Occurrence: 1 Physical Exam General: Alert, cooperative, no distress, appears stated age Eyes: Conjunctivae/corneas clear. EOMI bilaterally, no conjunctival injection Lungs: Clear to auscultation bilaterally decreased breath sounds on the left Heart: Regular rhythm, tachycardic, S1, S2 normal, no appreciable murmur Abdomen: Soft, non-tender. Bowel sounds normal. No masses. No organomegaly. Extremities: Bilateral lower extremities. 1+ pitting edema bilaterally, mildly worse on the left side, there is a scar assumably where the vein graft was harvested, erythematous, warm to touch, without any purulence noted Skin: Scar on left leg from saphenous vein graft without purulence, there is erythema, warmth is equal bilaterally Neurologic: CNII - XII intact. Normal strength, sensation and reflexes throughout. Psych: A and O x4 normal mood and affect Lab Review 24-hour labs: Results for orders placed or performed during the hospital encounter of (from the past 24 hour(s)) POC GLUCOSE Collection Time: 03/26/18 3:10 PM Result Value Ref Range Glucose, POC 177 (H) 70 - 100 MG/DL POC GLUCOSE Collection Time: 03/26/18 9:29 PM Result Value Ref Range Glucose, POC 233 (H) 70 - 100 MG/DL URINALYSIS DIPSTICK Collection Time: 03/27/18 2:59 AM Result Value Ref Range Color,UA YELLOW Turbidity,UA CLEAR CLEAR-CLEAR Specific [place]-Urine 1.015 1.003 - 1.035 pH,UA 5.0 5.0 - 8.0 Protein,UA NEG NEG-NEG Glucose,UA NEG NEG-NEG Ketones,UA NEG NEG-NEG Bilirubin,UA NEG NEG-NEG Blood,UA NEG NEG-NEG Urobilinogen,UA NORMAL NORM-NORMAL Nitrite,UA NEG NEG-NEG Leukocytes,UA NEG NEG-NEG Urine Ascorbic Acid, UA NEG NEG-NEG URINALYSIS, MICROSCOPIC Collection Time: 03/27/18 2:59 AM Result Value Ref Range WBCs,UA 0-2 0 - 2 /HPF RBCs,UA 0-2 0 - 3 /HPF MucousUA TRACE Squamous Epithelial Cells 5-10 0 - 5 Hyaline Cast PACKED CBC AND DIFF Collection Time: 03/27/18 5:30 AM Result Value Ref Range White Blood Cells 5.4 4.5 - 11.0 K/UL RBC 2.83 (L) 4.0 - 5.0 M/UL Hemoglobin 8.7 (L) 12.0 - 15.0 GM/DL Hematocrit 27.3 (L) 36 - 45 % MCV 96.6 80 - 100 FL MCH 30.8 26 - 34 PG MCHC 31.9 (L) 32.0 - 36.0 G/DL RDW 20.5 (H) 11 - 15 % Platelet Count 158 150 - 400 K/UL MPV 8.4 7 - 11 FL Neutrophils 68 41 - 77 % Lymphocytes 17 (L) 24 - 44 % Monocytes 11 4 - 12 % Eosinophils 4 0 - 5 % Basophils 0 0 - 2 % Absolute Neutrophil Count 3.70 1.8 - 7.0 K/UL Absolute Lymph Count 0.90 (L) 1.0 - 4.8 K/UL Absolute Monocyte Count 0.60 0 - 0.80 K/UL Absolute Eosinophil Count 0.20 0 - 0.45 K/UL Absolute Basophil Count 0.00 0 - 0.20 K/UL COMPREHENSIVE METABOLIC PANEL Collection Time: 03/27/18 5:30 AM Result Value Ref Range Sodium 134 (L) 137 - 147 MMOL/L Potassium 4.5 3.5 - 5.1 MMOL/L Chloride 102 98 - 110 MMOL/L Glucose 235 (H) 70 - 100 MG/DL Blood Urea Nitrogen 29 (H) 7 - 25 MG/DL Creatinine 1.59 (H) 0.4 - 1.00 MG/DL Calcium 9.4 8.5 - 10.6 MG/DL Total Protein 7.6 6.0 - 8.0 G/DL Total Bilirubin 1.0 0.3 - 1.2 MG/DL Albumin 3.4 (L) 3.5 - 5.0 G/DL Alk Phosphatase 74 25 - 110 U/L AST (SGOT) 18 7 - 40 U/L CO2 25 21 - 30 MMOL/L ALT (SGPT) 8 7 - 56 U/L Anion Gap 7 3 - 12 eGFR Non 33 (L) >60 mL/min eGFR 40 (L) >60 mL/min POC GLUCOSE Collection Time: 03/27/18 7:37 AM Result Value Ref Range Glucose, POC 213 (H) 70 - 100 MG/DL Point of Care Testing (Last 24 hours) Glucose: (!) 235 (03/27/18 0565) POC Glucose (Download): (!) 213 (03/27/18 8409) Radiology and other Diagnostics Review: Pertinent radiology reviewed. Giovanni Brooks, DO Internal medicine PGY 1 Pager [phone] * Armando Gonsalez RN - 03/27/2018 5:36 AM CDT Labs drawn by IVT with ultrasound. Labeled at bedside. Given to RN. * Kavon Pak MD - 03/26/2018 3:08 PM CDT General Progress Note Name: Lucrecia Fields Today's Date: 03/26/2018 Admission Date: 03/25/2018 LOS: 1 day Assessment/Plan: Principal Problem: Atrial fibrillation with rapid ventricular response (HCC) Active Problems: Type 2 diabetes mellitus with circulatory disorder, without long-term 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 (HCC) PAF (paroxysmal atrial fibrillation) (HCC) Chronic gastrointestinal bleeding Transfusion-dependent anemia CAD (coronary artery disease) HLD (hyperlipidemia) Hypothyroidism Hypertension Pleural effusion on left Lucrecia Fields is a 62 y.o. female, the patient has a past medical history of Acquired hypothyroidism; Arthritis; Back pain; Bleeding disorder (HCC); Coronary artery disease; Diabetes mellitus (HCC); Hypertension; Stomach disorder ; and Vision decreased. presenting with shortness of breath, dizziness/ lightheadedness, chills, nausea, lower extremity swelling and palpitations. 1. 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 Shortness of Breath/Lower extremity swelling, concern for DVT - LLE swelling greater than right since surgery - has history of DVT - BNP 327 on admission - CXR with persistent left sided pleural effusion - IR drain and Chest tube on left side Plan for today: > 40 IV lasix given, lasix drip started > can increase dose of lasix if SOB > IR aspiration today, follow output from L Chest tube 3. CAD s/p CABG 02/16/18 - no chest pain, surgical scar well healing - trop/EKG negative for ischemia on admission Plan for today: > Continue ASA, BB > Will send for cultures since she recently had surgery and has had progressive fatigue/SOB 4. History of GIB - has had extensive work up and evaluation by GI - frequent upper/lower GIB - requires frequent blood transfusions Plan for today: > GI consulted, EGD on thursday > transfuse 1U pRBC 5. Hypothyroidism > Continue Synthroid 6. 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 HTN > Continue metoprolol 8. DMII - YARD WORKER regimen: NPH 14u QD, Novolog 4u TID w/ meals > Continue YARD WORKER NPH, add on SSI Fluids, electrolytes and Nutrition: IVF: no IVF Electrolytes: Monitor and replace PRN. Diet: Cardiac Diet Prophylaxis: DVT: SCD Stress ulcer: PPI Code status: Full Code Disposition: admit to CV1 Patient seen and discussed with Dr. Nath. Giovanni Brooks DO Internal medicine PGY 1 Pager [phone] Subjective Patient seen and examined this morning. No acute events overnight. States shortness of breath is somewhat improved. Complaining of left lower extremity pain which is similar to yesterday. Denies any chest pain chest tightness, headache, nausea vomiting, fevers, chills. On telemetry noted to be in atrial flutter with a rate of 125 consistently throughout the night. Per nursing no bloody bowel movements. Medications Scheduled Meds: amoxicillin (AMOXIL) capsule 500 mg 500 mg Oral TID aspirin chewable tablet 81 mg 81 mg Oral QDAY cetirizine (ZYRTEC) tablet 10 mg 10 mg Oral QAM8 folic acid (FOLVITE) tablet 1 mg 1 mg Oral QDAY furosemide (LASIX) injection 40 mg 40 mg Intravenous ONCE insulin aspart U-100 (NOVOLOG FLEXPEN) injection PEN 0-7 Units 0-7 Units Subcutaneous ACHS insulin NPH (HUMULIN N KwikPen) injection PEN 14 Units 14 Units Subcutaneous QDAY(07) levothyroxine (SYNTHROID) tablet 175 mcg 175 mcg Oral QDAY 30 min before breakfast metoprolol tartrate (LOPRESSOR) tablet 100 mg 100 mg Oral BID nystatin (NYSTOP) topical powder Topical BID pantoprazole DR (PROTONIX) tablet 80 mg 80 mg Oral QDAY(21) rosuvastatin (CRESTOR) tablet 40 mg 40 mg Oral QDAY senna/docusate (SENOKOT-S) tablet 2 tablet 2 tablet Oral BID sucralfate (CARAFATE) tablet 1 g 1 g Oral QID Continuous Infusions: furosemide (LASIX) 500 mg in 50 mL IV drip syr (max conc) PRN and Respiratory Meds:acetaminophen Q6H PRN, fentaNYL citrate PF Intra- procedure Med, midazolam Intra-procedure Med, nitroglycerin Q5 MIN PRN, ondansetron Q8H PRN, traMADol Q6H PRN Review of Systems: A 14 point review of systems was negative except for: Discussed in subjective Objective: Vital Signs: Last Filed Vital Signs: 24 Hour Range BP: 106/70 (03/26 1245) Temp: 36.5 C (97.7 F) (03/26 1230) Pulse: 121 (03/26 1245) Respirations: 22 PER MINUTE (03/26 1245) SpO2: 92 % (03/26 1245) O2 Delivery: Nasal Cannula (03/26 124) SpO2 Pulse: 120 (03/26 1245) Height: 162.6 cm (64") (03/25 1838) BP: (101-141)/(51-94) Temp: [36.4 C (97.6 F)-36.9 C (98.5 F)] Pulse: [80-125] Respirations: [14 PER MINUTE-23 PER MINUTE] SpO2: [85 %-100 %] O2 Delivery: Nasal Cannula Intensity Pain Scale (Self Report): 6 (03/26/18 0832) Vitals: 03/25/18 1433 03/25/18 1838 03/26/18 0448 Weight: 113.8 kg (250 lb 12.8 oz) 113 kg (249 lb 2 oz) 113.1 kg (249 lb 6.4 oz) Intake/Output Summary: (Last 24 hours) Intake/Output Summary (Last 24 hours) at 03/26/18 1509 Last data filed at 03/26/18 1318 Gross per 24 hour Intake 50 ml Output 795 ml Net -745 ml Stool Occurrence: 1 Physical Exam General: Alert, cooperative, no distress, appears stated age Eyes: Conjunctivae/corneas clear. EOMI bilaterally, no conjunctival injection Lungs: Clear to auscultation bilaterally decreased breath sounds on the left Heart: Regular rhythm, tachycardic, S1, S2 normal, no appreciable murmur Abdomen: Soft, non-tender. Bowel sounds normal. No masses. No organomegaly. Extremities: Bilateral lower extremities. 1+ pitting edema bilaterally, mildly worse on the left side, there is a scar assumably where the vein graft was harvested, erythematous, warm to touch, without any purulence noted Skin: Scar on left leg from saphenous vein graft without purulence, there is erythema and warmth to touch. Neurologic: CNII - XII intact. Normal strength, sensation and reflexes throughout. Psych: A and O x4 normal mood and affect Lab Review 24-hour labs: Results for orders placed or performed during the hospital encounter of (from the past 24 hour(s)) CBC AND DIFF Collection Time: 03/25/18 4:07 PM Result Value Ref Range White Blood Cells 4.8 4.5 - 11.0 K/UL RBC 2.81 (L) 4.0 - 5.0 M/UL Hemoglobin 8.5 (L) 12.0 - 15.0 GM/DL Hematocrit 27.1 (L) 36 - 45 % MCV 96.3 80 - 100 FL MCH 30.2 26 - 34 PG MCHC 31.3 (L) 32.0 - 36.0 G/DL RDW 18.5 (H) 11 - 15 % Platelet Count 157 150 - 400 K/UL MPV 8.1 7 - 11 FL Neutrophils 68 41 - 77 % Lymphocytes 17 (L) 24 - 44 % Monocytes 9 4 - 12 % Eosinophils 6 (H) 0 - 5 % Basophils 0 0 - 2 % Absolute Neutrophil Count 3.20 1.8 - 7.0 K/UL Absolute Lymph Count 0.80 (L) 1.0 - 4.8 K/UL Absolute Monocyte Count 0.50 0 - 0.80 K/UL Absolute Eosinophil Count 0.30 0 - 0.45 K/UL Absolute Basophil Count 0.00 0 - 0.20 K/UL COMPREHENSIVE METABOLIC PANEL Collection Time: 03/25/18 4:07 PM Result Value Ref Range Sodium 134 (L) 137 - 147 MMOL/L Potassium 4.4 3.5 - 5.1 MMOL/L Chloride 104 98 - 110 MMOL/L Glucose 163 (H) 70 - 100 MG/DL Blood Urea Nitrogen 27 (H) 7 - 25 MG/DL Creatinine 1.62 (H) 0.4 - 1.00 MG/DL Calcium 9.5 8.5 - 10.6 MG/DL Total Protein 7.6 6.0 - 8.0 G/DL Total Bilirubin 0.6 0.3 - 1.2 MG/DL Albumin 3.5 3.5 - 5.0 G/DL Alk Phosphatase 73 25 - 110 U/L AST (SGOT) 16 7 - 40 U/L CO2 25 21 - 30 MMOL/L ALT (SGPT) 7 7 - 56 U/L Anion Gap 5 3 - 12 eGFR Non 32 (L) >60 mL/min eGFR 39 (L) >60 mL/min MAGNESIUM Collection Time: 03/25/18 4:07 PM Result Value Ref Range Magnesium 1.8 1.6 - 2.6 mg/dL PHOSPHORUS Collection Time: 03/25/18 4:07 PM Result Value Ref Range Phosphorus 3.5 2.0 - 4.5 MG/DL POC TROPONIN Collection Time: 03/25/18 4:09 PM Result Value Ref Range [id number] 0.00 0.00 - 0.05 NG/ML BNP POC ER Collection Time: 03/25/18 4:16 PM Result Value Ref Range BNP POC 327.0 (H) 0 - 100 PG/ML TROPONIN-I Collection Time: 03/25/18 8:53 PM Result Value Ref Range Troponin-I 0.01 0.0 - 0.05 NG/ML CULTURE-BLOOD W/SENSITIVITY Collection Time: 03/25/18 8:53 PM Result Value Ref Range Battery Name BLOOD CULTURE Specimen Description BLOOD LEFT ANTECUBITAL Special Requests NONE Culture NO GROWTH 1 DAY Report Status LACTIC ACID (BG - RAPID LACTATE) Collection Time: 03/25/18 8:53 PM Result Value Ref Range Lactic Acid,BG 1.3 0.5 - 2.0 MMOL/L TYPE & CROSSMATCH Collection Time: 03/25/18 8:53 PM Result Value Ref Range Units Ordered 1 Crossmatch Expires 03/28/2018 Record Check FOUND ABO/RH(D) A POS Antibody Screen NEG Patient has a history of a clinically significant antibody. Unit Number [id number] Blood Component Type RBC,ADSOL,LEUKO REDUCED Unit Division 0 Status OF Unit ALLOCATED Transfusion Status OK TO TRANSFUSE Crossmatch Result COMPATIBLE, GEL MAGNESIUM Collection Time: 03/25/18 8:53 PM Result Value Ref Range Magnesium 1.7 1.6 - 2.6 mg/dL PHOSPHORUS Collection Time: 03/25/18 8:53 PM Result Value Ref Range Phosphorus 3.3 2.0 - 4.5 MG/DL CULTURE-BLOOD W/SENSITIVITY Collection Time: 03/25/18 8:58 PM Result Value Ref Range Battery Name BLOOD CULTURE Specimen Description BLOOD LEFT UPPER ARM Special Requests NONE Culture NO GROWTH 1 DAY Report Status POC GLUCOSE Collection Time: 03/25/18 9:25 PM Result Value Ref Range Glucose, POC 190 (H) 70 - 100 MG/DL TROPONIN-I Collection Time: 03/26/18 2:02 AM Result Value Ref Range Troponin-I 0.01 0.0 - 0.05 NG/ML COMPREHENSIVE METABOLIC PANEL Collection Time: 03/26/18 2:02 AM Result Value Ref Range Sodium 136 (L) 137 - 147 MMOL/L Potassium 4.4 3.5 - 5.1 MMOL/L Chloride 105 98 - 110 MMOL/L Glucose 226 (H) 70 - 100 MG/DL Blood Urea Nitrogen 27 (H) 7 - 25 MG/DL Creatinine 1.49 (H) 0.4 - 1.00 MG/DL Calcium 9.3 8.5 - 10.6 MG/DL Total Protein 7.0 6.0 - 8.0 G/DL Total Bilirubin 0.5 0.3 - 1.2 MG/DL Albumin 3.2 (L) 3.5 - 5.0 G/DL Alk Phosphatase 75 25 - 110 U/L AST (SGOT) 17 7 - 40 U/L CO2 25 21 - 30 MMOL/L ALT (SGPT) 5 (L) 7 - 56 U/L Anion Gap 6 3 - 12 eGFR Non 36 (L) >60 mL/min eGFR 43 (L) >60 mL/min CBC AND DIFF Collection Time: 03/26/18 2:02 AM Result Value Ref Range White Blood Cells 5.6 4.5 - 11.0 K/UL RBC 2.54 (L) 4.0 - 5.0 M/UL Hemoglobin 7.9 (L) 12.0 - 15.0 GM/DL Hematocrit 24.7 (L) 36 - 45 % MCV 96.9 80 - 100 FL MCH 30.8 26 - 34 PG MCHC 31.8 (L) 32.0 - 36.0 G/DL RDW 18.5 (H) 11 - 15 % Platelet Count 158 150 - 400 K/UL MPV 8.0 7 - 11 FL Neutrophils 71 41 - 77 % Lymphocytes 13 (L) 24 - 44 % Monocytes 10 4 - 12 % Eosinophils 6 (H) 0 - 5 % Basophils 0 0 - 2 % Absolute Neutrophil Count 4.00 1.8 - 7.0 K/UL Absolute Lymph Count 0.70 (L) 1.0 - 4.8 K/UL Absolute Monocyte Count 0.50 0 - 0.80 K/UL Absolute Eosinophil Count 0.40 0 - 0.45 K/UL Absolute Basophil Count 0.00 0 - 0.20 K/UL POC GLUCOSE Collection Time: 03/26/18 7:57 AM Result Value Ref Range Glucose, POC 210 (H) 70 - 100 MG/DL Point of Care Testing (Last 24 hours) Glucose: (!) 226 (03/26/18 0202) POC Glucose (Download): (!) 210 (03/26/18 5838) Radiology and other Diagnostics Review: Pertinent radiology reviewed. Giovanni Brooks DO Internal medicine PGY 1 Pager [phone] Staff: I have personally interviewed and examined the patient with the resident. I have reviewed all pertinent labs and x-rays. The medication list has been reviewed. I personally performed the dempsey portions of the E/M visit, discussed case with resident and concur with resident documentation of history, physical exam, assessment, and treatment plan unless otherwise noted. Ms. Fields is well pleasant 62-year-old female with history of coronary artery disease status post bypass graft on February 16, 2018 with PRIDE to LAD, SVG to OM and left posterolateral branch and SVG to PDA, diabetes, hypertension, paroxysmal atrial fibrillation. Patient had repeated episodes of atrial flutter and fibrillation after the surgery for which EP was consulted. She had prolonged history of GI bleeding and had capsule endoscopy demonstrating G AVE. She requires multiple blood transfusions repeatedly and has been followed by group rooms coordinator. Last blood transfusion was about a week ago. She generally requires blood transfusion at least once a month. She was seen in CT surgery clinic yesterday and was noted to be in atrial tachycardia and was advised to be admitted. However, patient declined. She complains of increased shortness of breath since discharge as well as paroxysmal nocturnal dyspnea leg swelling and weight gain. Leg swelling is more prominent in the left lower extremity from where the vein graft was harvested Shortness of breath and leg swelling and atrial arrhythmia: IV Lasix- not much response, will start Lasix drip. GI consulted- plan for EGD on Thursday and once bleeding is under control then will consider Heparin and and if no bleeding then TODD/CVRT, will need to be on AAD after that Left pleural effusion- now post left pigtail by IR. Still tachy on tele. - Will not start heparin now as she has left chest tube and giving 1 unit PRBC - Discussed with E- rate control for now till she can be anticoagulated. * Amaury Ramon RN - 03/26/2018 12:52 PM CDT Report to juana Thacker RN. All questions answered. * Amaury Ramon RN - 03/26/2018 12:41 PM CDT First chest xray read by WADE Young for patient to return to floor. IV team paged for new IV placement, as her IV infiltrated during procedure. * Sri Hopper - 03/26/2018 12:33 PM CDT XRAY at bedside * Sri Hopper - 03/26/2018 12:08 PM CDT Sedation physician present in room. Recent vitals and patient condition reviewed between sedating physician and nurse. Reassessment completed. Determination made to proceed with planned sedation. * Andreea Blankenship PA-C - 03/26/2018 9:25 AM CDT CTS progress note Ms. Fields is s/p CABG/MAZE/ ligation SETH on Dr. Pal on 02/16/18 admitted yesterday with atrial fibrillation and left pleural effusion. GI consulted for anticoagulation recommendations as she has h/o GI bleeds. VS: afebrile, A fib rate 120s, RA, BP 110-140s Labs: Hgb 8.5-->7.9 Cr 1.6-->1.49 Chest xray-large left pleural effusion Plan: 1. Agree with left pigtail drain placement in IR today 2. Continue with rate control for atrial fib, GI consult pending re: anticoagulation recs. * Ervin Woodall, DO - 03/26/2018 7:56 AM CDT GI Consult Note Admission Diagnosis: Atrial fibrillation (HCC) [I48.91] Admission Date: 03/25/2018 Reason for Consult: history of GI bleed, recent CABG, presenting with SOB/ atrial fibrillation and concern for DVT, please follow and advise on risk/ benifit of potential anticoagulation HPI 62 y.o. female initially p/w SOB, AF, possible DVT who we are consulted for the above. PMH significant for hypothyroidism, CAD s/p CABG 02/16/2018, Diabetes mellitus, Hypertension. Patient has a history of GI bleeding in the past and has been seen by GI in the outpatient setting 10/2017. Previously had endoscopy performed at outside facility. Prior EGD showing erythematous mucosa throughout the stomach and in the antrum. Gastric biopsies showing ectatic superficial vessels and chronic gastritis no H. pylori. Colonoscopy showing approximately 10 mm cecal polyp which was removed and found to be tubular adenoma. Capsule endoscopy performed 07/2017 showing incomplete findings of the battery and there were no complete recordings. At that time there was plans to postpone endoscopic procedures for 3-6 months due to patient's recent NSTEMI at that time. Patient is not currently on anticoagulation. She denies a history of overt GI bleeding currently. She denies hematemesis, coffee-ground emesis, melena, hematochezia. Since her CABG the patient has been in and out of atrial fibrillation/flutter and cardiology is considering anticoagulation but is concerned due to her prior history of GI bleed. She was last transfused one week prior. 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 without overt signs of small intestinal bleeding ROS Constitutional: Negative HEENT: Negative Eyes: Negative Respiratory: Negative Cardiovascular: Negative Gastrointestinal: as above Endocrine: Negative Genitourinary: Negative Musculoskeletal: Negative Skin: Negative Allergic/Immunologic: Negative Neurological: Negative Hematological: Negative Psychiatric/Behavioral: Negative All other systems reviewed and are negative Past Medical History: Diagnosis Date Acquired hypothyroidism Arthritis Back pain Bleeding disorder (HCC) Coronary artery disease Diabetes mellitus (HCC) Type II Hypertension Stomach disorder Vision decreased Past Surgical History: Procedure Laterality Date HX HEART CATHETERIZATION 2017 CORONARY STENT PLACEMENT 2017 CORONARY ARTERY BYPASS GRAFT N/A 02/16/2018 CORONARY ARTERY BYPASS WITH ARTERIAL GRAFT - 4 GRAFTS (Internal Mammary Artery and Endovascular Vein [place]) performed by Lance Pal MD at [facility] HX MAZE N/A 02/16/2018 MAZE PROCEDURE performed by Lance Pal MD at [facility] ANKLE SURGERY Left ankle reconstruction COLONOSCOPY HX [...] of children: N/A Years of education: N/A Occupational History Not on file. Social History Main Topics Smoking status: Former Smoker Packs/day: 2.00 Years: 10.00 Types: Cigarettes Quit date: 09/28/1981 Smokeless tobacco: Never Used Alcohol use Yes Comment: Seldom Drug use: No Sexual activity: Not on file Other Topics Concern Not on file Social History Narrative No narrative on file Allergies Allergen Reactions Diltiazem RASH, NAUSEA AND VOMITING and SEE COMMENTS Sore mouth Sulfa (Sulfonamide Antibiotics) RASH Duricef [Cefadroxil] NAUSEA AND VOMITING Pravastatin NAUSEA AND VOMITING Simvastatin NAUSEA AND VOMITING Current Facility-Administered Medications: acetaminophen (TYLENOL) tablet 650 mg, 650 mg, Oral, Q6H PRN, Shashi Chan MD, 650 mg at 03/25/188 aspirin chewable tablet 81 mg, 81 mg, Oral, QDAY, Shashi Chan MD cetirizine (ZYRTEC) tablet 10 mg, 10 mg, Oral, QAM8, Shashi Chan MD folic acid (FOLVITE) tablet 1 mg, 1 mg, Oral, QDAY, Shashi Chan MD furosemide (LASIX) tablet 20 mg, 20 mg, Oral, QDAY, Shashi Chan MD insulin aspart U-100 (NOVOLOG FLEXPEN) injection PEN 0-7 Units, 0-7 Units, Subcutaneous, SALVADOR, Giovanni Brooks DO insulin NPH (HUMULIN N KwikPen) injection PEN 14 Units, 14 Units, Subcutaneous, QDAY(07), Kavon Pak MD levothyroxine (SYNTHROID) tablet 175 mcg, 175 mcg, Oral, QDAY 30 min before breakfast, Shashi Chan MD, 175 mcg at 03/26/18610 metoprolol tartrate (LOPRESSOR) tablet 100 mg, 100 mg, Oral, BID, Shashi Chan MD, 100 mg at 03/25/182128 nitroglycerin (NITROSTAT) tablet 0.4 mg, 0.4 mg, Sublingual, Q5 MIN PRN, Shashi Chan MD nystatin (NYSTOP) topical powder, , Topical, BID, Isabel Romo MD ondansetron (ZOFRAN) tablet 8 mg, 8 mg, Oral, Q8H PRN, Shashi Chan MD , 8 mg at 03/26/[address] (PROTONIX) tablet 80 mg, 80 mg, Oral, QDAY(), Shashi Chan MD, 80 mg at 03/25/182128 rosuvastatin (CRESTOR) tablet 40 mg, 40 mg, Oral, QDAY, Shashi Chan MD senna/docusate (SENOKOT-S) tablet 2 tablet, 2 tablet, Oral, BID, Shashi Chan MD sucralfate (CARAFATE) tablet 1 g, 1 g, Oral, QID, Shashi Chan MD, 1 g at 03/25/182128 traMADol (ULTRAM) tablet 50 mg, 50 mg, Oral, Q6H PRN, Shashi Chan MD Physical Exam Gen: AOx3, NAD HEENT: anicteric sclerae, no tracheal deviation Cardiac: irregular rate and rhythm, intact distal pulses Resp: speaking in full sentences, no respiratory distress GI: positive bowel sounds, non TTP, non-distended, no guarding, no hepatosplenomegaly Ext: no peripheral edema, no deformities b/l LEs Neuro: no focal abnormalities Psych: pleasant mood and affect Labs 24-hour labs: Results for orders placed or performed during the hospital encounter of (from the past 24 hour(s)) CBC AND DIFF Collection Time: 03/25/18 4:07 PM Result Value Ref Range White Blood Cells 4.8 4.5 - 11.0 K/UL RBC 2.81 (L) 4.0 - 5.0 M/UL Hemoglobin 8.5 (L) 12.0 - 15.0 GM/DL Hematocrit 27.1 (L) 36 - 45 % MCV 96.3 80 - 100 FL MCH 30.2 26 - 34 PG MCHC 31.3 (L) 32.0 - 36.0 G/DL RDW 18.5 (H) 11 - 15 % Platelet Count 157 150 - 400 K/UL MPV 8.1 7 - 11 FL Neutrophils 68 41 - 77 % Lymphocytes 17 (L) 24 - 44 % Monocytes 9 4 - 12 % Eosinophils 6 (H) 0 - 5 % Basophils 0 0 - 2 % Absolute Neutrophil Count 3.20 1.8 - 7.0 K/UL Absolute Lymph Count 0.80 (L) 1.0 - 4.8 K/UL Absolute Monocyte Count 0.50 0 - 0.80 K/UL Absolute Eosinophil Count 0.30 0 - 0.45 K/UL Absolute Basophil Count 0.00 0 - 0.20 K/UL COMPREHENSIVE METABOLIC PANEL Collection Time: 03/25/18 4:07 PM Result Value Ref Range Sodium 134 (L) 137 - 147 MMOL/L Potassium 4.4 3.5 - 5.1 MMOL/L Chloride 104 98 - 110 MMOL/L Glucose 163 (H) 70 - 100 MG/DL Blood Urea Nitrogen 27 (H) 7 - 25 MG/DL Creatinine 1.62 (H) 0.4 - 1.00 MG/DL Calcium 9.5 8.5 - 10.6 MG/DL Total Protein 7.6 6.0 - 8.0 G/DL Total Bilirubin 0.6 0.3 - 1.2 MG/DL Albumin 3.5 3.5 - 5.0 G/DL Alk Phosphatase 73 25 - 110 U/L AST (SGOT) 16 7 - 40 U/L CO2 25 21 - 30 MMOL/L ALT (SGPT) 7 7 - 56 U/L Anion Gap 5 3 - 12 eGFR Non 32 (L) >60 mL/min eGFR 39 (L) >60 mL/min MAGNESIUM Collection Time: 03/25/18 4:07 PM Result Value Ref Range Magnesium 1.8 1.6 - 2.6 mg/dL PHOSPHORUS Collection Time: 03/25/18 4:07 PM Result Value Ref Range Phosphorus 3.5 2.0 - 4.5 MG/DL POC TROPONIN Collection Time: 03/25/18 4:09 PM Result Value Ref Range Zwxeylbn-G-PZJ 0.00 0.00 - 0.05 NG/ML BNP POC ER Collection Time: 03/25/18 4:16 PM Result Value Ref Range BNP POC 327.0 (H) 0 - 100 PG/ML TROPONIN-I Collection Time: 03/25/18 8:53 PM Result Value Ref Range Troponin-I 0.01 0.0 - 0.05 NG/ML CULTURE-BLOOD W/SENSITIVITY Collection Time: 03/25/18 8:53 PM Result Value Ref Range Battery Name BLOOD CULTURE Specimen Description BLOOD LEFT ANTECUBITAL Special Requests NONE Culture NO GROWTH 1 DAY Report Status LACTIC ACID (BG - RAPID LACTATE) Collection Time: 03/25/18 8:53 PM Result Value Ref Range Lactic Acid,BG 1.3 0.5 - 2.0 MMOL/L TYPE & CROSSMATCH Collection Time: 03/25/18 8:53 PM Result Value Ref Range Units Ordered 0 Crossmatch Expires 03/28/2018 Record Check FOUND ABO/RH(D) A POS Antibody Screen NEG MAGNESIUM Collection Time: 03/25/18 8:53 PM Result Value Ref Range Magnesium 1.7 1.6 - 2.6 mg/dL PHOSPHORUS Collection Time: 03/25/18 8:53 PM Result Value Ref Range Phosphorus 3.3 2.0 - 4.5 MG/DL CULTURE-BLOOD W/SENSITIVITY Collection Time: 03/25/18 8:58 PM Result Value Ref Range Battery Name BLOOD CULTURE Specimen Description BLOOD LEFT UPPER ARM Special Requests NONE Culture NO GROWTH 1 DAY Report Status POC GLUCOSE Collection Time: 03/25/18 9:25 PM Result Value Ref Range Glucose, POC 190 (H) 70 - 100 MG/DL TROPONIN-I Collection Time: 03/26/18 2:02 AM Result Value Ref Range Troponin-I 0.01 0.0 - 0.05 NG/ML COMPREHENSIVE METABOLIC PANEL Collection Time: 03/26/18 2:02 AM Result Value Ref Range Sodium 136 (L) 137 - 147 MMOL/L Potassium 4.4 3.5 - 5.1 MMOL/L Chloride 105 98 - 110 MMOL/L Glucose 226 (H) 70 - 100 MG/DL Blood Urea Nitrogen 27 (H) 7 - 25 MG/DL Creatinine 1.49 (H) 0.4 - 1.00 MG/DL Calcium 9.3 8.5 - 10.6 MG/DL Total Protein 7.0 6.0 - 8.0 G/DL Total Bilirubin 0.5 0.3 - 1.2 MG/DL Albumin 3.2 (L) 3.5 - 5.0 G/DL Alk Phosphatase 75 25 - 110 U/L AST (SGOT) 17 7 - 40 U/L CO2 25 21 - 30 MMOL/L ALT (SGPT) 5 (L) 7 - 56 U/L Anion Gap 6 3 - 12 eGFR Non 36 (L) >60 mL/min eGFR 43 (L) >60 mL/min CBC AND DIFF Collection Time: 03/26/18 2:02 AM Result Value Ref Range White Blood Cells 5.6 4.5 - 11.0 K/UL RBC 2.54 (L) 4.0 - 5.0 M/UL Hemoglobin 7.9 (L) 12.0 - 15.0 GM/DL Hematocrit 24.7 (L) 36 - 45 % MCV 96.9 80 - 100 FL MCH 30.8 26 - 34 PG MCHC 31.8 (L) 32.0 - 36.0 G/DL RDW 18.5 (H) 11 - 15 % Platelet Count 158 150 - 400 K/UL MPV 8.0 7 - 11 FL Neutrophils 71 41 - 77 % Lymphocytes 13 (L) 24 - 44 % Monocytes 10 4 - 12 % Eosinophils 6 (H) 0 - 5 % Basophils 0 0 - 2 % Absolute Neutrophil Count 4.00 1.8 - 7.0 K/UL Absolute Lymph Count 0.70 (L) 1.0 - 4.8 K/UL Absolute Monocyte Count 0.50 0 - 0.80 K/UL Absolute Eosinophil Count 0.40 0 - 0.45 K/UL Absolute Basophil Count 0.00 0 - 0.20 K/UL POC GLUCOSE Collection Time: 03/26/18 7:57 AM Result Value Ref Range Glucose, POC 210 (H) 70 - 100 MG/DL Imaging Reviewed A/P 62 y.o. yo female p/w S OB and atrial fibrillation PMH significant for CAD, STEMI, prior CABG 03/12 with subsequent development of atrial fibrillation/ flutter not currently on anticoagulation, DM, hypertension. GI is consulted for evaluation of anticoagulation risk and presumed chronic GI bleeding. #Presumed GI bleeding, recurrent #Need for recurrent blood transfusions #Atrial fibrillation/flutter, not currently anticoagulated #Recent CABG procedure Recommendations: No emergent indication for endoscopic therapy Patient has had multiple endoscopies without clear source of bleeding with the exception of capsule endoscopy 03/06 showing evidence of GAVE which puts her at an increased risk of chronic oozing Patient will likely require EGD with plans for GAVE treatment. If still here over the weekend, we will plan for EGD with APC on Thursday for GAVE. --Okay with heparin for the interim. Should she require endoscopy sooner due to AC, we can perform it over the weekend as a call case Her anticoagulation risk is slightly elevated with a known history of GAVE. However the risk and benefit of anticoagulation in the setting of atrial fibrillation will need to be determined by the cardiology team. From a GI perspective the patient is at increased risk of recurrent bleeding due to GAVE and would benefit from endoscopic therapy prior to anticoagulation Patient seen and examined with Dr. Jackson who agrees with the above Ervin Woodall DO Pager [phone] GI Fellow 03/26/2018 11:07 AM Associated attestation - Love Jackson MD - 03/26/2018 7:15 PM CDT ATTESTATION I personally performed the dempsey portions of the E/M visit, discussed case with resident and concur with resident documentation of history, physical exam, assessment, and treatment plan unless otherwise noted. 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 This was found on most recent small bowel video capsule study. The patient has a history of atrial fibrillation and needs to be anticoagulated. We will proceed with endoscopic treatment of GAVE as this is likely the source of her chronic GI loss. Please see GI fellow note for details. Staff name: Love Jackson MD Date: 03/26/2018 * Bia Richard RN - 03/26/2018 7:32 AM CDT IR Progress Note Left chest tube placement, patient with shortness of breath and persistent moderate to large left pleural effusion. Patient s/p CABG approximately 5 weeks ago. CTS requesting. Labs, meds, allergies okay. Bia Richard RN BSN * Haris Suarez RN - 03/26/2018 2:03 AM CDT Labs obtained and labeled at bedside. * Irina De La Garza RN - 03/25/2018 10:48 PM CDT Bedside safety checks completed. Initial patient assessment completed, refer to flowsheet for details. Admission skin assessment completed by: THOMPSON Arevalo and THOMPSON Grimm Pressure Injury Present on Hospital Admission (within 24 hours): No 1. Occiput: No 2. Ear: No 3. Scapula: No 4. Spinous Process: No 5. Shoulder: No 6. Elbow: No 7. Iliac Crest: No 8. Sacrum/Coccyx: No 9. Ischial Tuberosity: No 10. Trochanter: No 11. Knee: No 12. Malleolus: No 13. Heel: No 14. Toes: No 15. Assessed for device associated injury Yes 16. Nursing Nutrition Assessment Completed Yes See Doc Flowsheet for additional wound details. * Jeniffer Dobbs - 03/25/2018 8:53 PM CDT BCX2 one set drawn from LAC using SONO and second set drawn from L upper arm using SONO by Sydnee MACKAY and labeled at the bedside. in this encounter H&P Notes * Jesús Barbosa MD - 04/08/2018 3:25 PM CDT Pre-Operative Assessment for TODD or Cardioversion Date of Service: 04/08/2018 Lucrecia Fields is a 62 y.o. y.o. female. : 1955 History and Physical Exam I reviewed H&P from 03-25-18 . No changes noted. Assessment I reviewed: nurse pre-procedure assessment (including past medical history, allergies, medications, labs) NPO status Acceptable I assessed the patient's airways and noted: no abnormalities I requested Anesthesia consult I discussed risks and alternatives of this type of sedation and the procedure with the patient and she did agree to proceed. Physical Status Classification ([place] [employer]est[employer]): Per anesthesia assessment. Sedation/Medication Plan Sedation plan per Anesthesiology Jesús Barbosa MD, [facility] Department of Cardiovascular Medicine [facility] Pager [phone] * Skinny Marshall MD - 04/07/2018 12:05 PM CDT Pre Procedure History and Physical/Sedation Plan Name:Lucrecia Fields :1955 Age: 62 y.o. Admission Date: 03/25/2018 Days Admitted: LOS: 13 days Procedure Date: 04/07/2018 Planned Procedure(s): GI: EGD and Colonoscopy Sedation/Medication Plan: MAC (Monitored Anesthesia Care) Discussion/Reviews: Physician has discussed risks and alternatives of this type of sedation and above planned procedures with patient Chief Complaint: Inpatient endo consult note reviewed. Hematochezia Previous Anesthetic/Sedation History: Per anesthesia Allergies: Diltiazem; Sulfa (sulfonamide antibiotics); Duricef [cefadroxil]; Pravastatin; and Simvastatin Medications: Scheduled Meds: [AUG Hold] aspirin chewable tablet 81 mg 81 mg Oral QDAY [AUG Hold] cetirizine (ZYRTEC) tablet 10 mg 10 mg Oral QAM8 [AUG Hold] diltiazem CD (cardIZEM CD) capsule 180 mg 180 mg Oral QDAY [MAR Hold] folic acid (FOLVITE) tablet 1 mg 1 mg Oral QDAY [Aug] insulin aspart U-100 (NOVOLOG FLEXPEN) injection PEN 0-14 Units 0-14 Units Subcutaneous ACHS [Aug] insulin NPH (HUMULIN N KwikPen) injection PEN 18 Units 18 Units Subcutaneous QDAY(07) [Aug] levothyroxine (SYNTHROID) tablet 175 mcg 175 mcg Oral QDAY 30 min before breakfast [Aug] magnesium citrate oral solution 296 mL 296 mL Oral ONCE [Aug] magnesium oxide (MAG-OX) tablet 400 mg 400 mg Oral BID [Aug] melatonin tablet 5 mg 5 mg Oral QHS [Aug] metoprolol tartrate (LOPRESSOR) tablet 100 mg 100 mg Oral BID nystatin (NYSTOP) topical powder Topical BID [Aug] pantoprazole DR (PROTONIX) tablet 80 mg 80 mg Oral QDAY() [Aug] rosuvastatin (CRESTOR) tablet 40 mg 40 mg Oral QDAY [Aug] senna/docusate (SENOKOT-S) tablet 2 tablet 2 tablet Oral BID [Aug] sucralfate (CARAFATE) tablet 1 g 1 g Oral QID Continuous Infusions: lactated ringers infusion 1,000 mL (04/07/18 1112) PRN and Respiratory Meds:[Aug] acetaminophen Q6H PRN, [Aug] hydrOXYzine TID PRN, [Aug] nitroglycerin Q5 MIN PRN, [Aug] ondansetron Q8H PRN, [Aug] traMADol Q6H PRN Vital Signs: Last Filed Vital Signs: 24 Hour Range BP: 125/51 (04/07 1110) Temp: 36.6 C (97.9 F) (04/07 1110) Pulse: 93 (04/07 1110) Respirations: 17 PER MINUTE (04/07 1110) SpO2: 93 % (04/07 1110) O2 Delivery: Nasal Cannula (04/07 1110) BP: (115-134)/(43-60) Temp: [36.3 C (97.4 F)-36.6 C (97.9 F)] Pulse: [77-94] Respirations: [14 PER MINUTE-18 PER MINUTE] SpO2: [90 %-95 %] O2 Delivery: Nasal Cannula NPO Status: Airway: mouth: no abnormalities noted Anesthesia Classification: ASA III (A patient with a severe systemic disease that limits activity, but is not incapacitating) NPO Status: Acceptable Preganancy Status: N/A Lab/Radiology/Other Diagnostic Tests Labs: Relevant labs reviewed Conner Martines MD Pager ATTESTATION I personally performed the dempsey portions of the E/M visit, discussed case with resident and concur with resident documentation of history, physical exam, assessment, and treatment plan unless otherwise noted. Staff name: Skinny Marshall MD Date: 04/07/2018 * Conner Martines MD - 03/29/2018 10:26 AM CDT Pre Procedure History and Physical/Sedation Plan Name:Lucrecia Fields :1955 Age: 62 y.o. Admission Date: 03/25/2018 Days Admitted: LOS: 4 days Procedure Date: 03/29/2018 Planned Procedure(s): GI: EGD Sedation/Medication Plan: MAC (Monitored Anesthesia Care) Discussion/Reviews: Physician has discussed risks and alternatives of this type of sedation and above planned procedures with patient Chief Complaint: Inpatient endo consult note reviewed. History of GAVE and anemia. Here for treatment of GAVE. Previous Anesthetic/Sedation History: Per anesthesia Allergies: Diltiazem; Sulfa (sulfonamide antibiotics); Duricef [cefadroxil]; Pravastatin; and Simvastatin Medications: Scheduled Meds: [AUG Hold] aspirin chewable tablet 81 mg 81 mg Oral QDAY [Aug] cetirizine (ZYRTEC) tablet 10 mg 10 mg Oral QAM8 doxycycline (VIBRAMYCIN) tablet 100 mg 100 mg Oral BID [AUG Hold] folic acid (FOLVITE) tablet 1 mg 1 mg Oral QDAY [Aug] insulin aspart U-100 (NOVOLOG FLEXPEN) injection PEN 0-14 Units 0-14 Units Subcutaneous ACHS [AUG Hold] insulin NPH (HUMULIN N KwikPen) injection PEN 18 Units 18 Units Subcutaneous QDAY(07) [Aug] levothyroxine (SYNTHROID) tablet 175 mcg 175 mcg Oral QDAY 30 min before breakfast [Aug] metoprolol tartrate (LOPRESSOR) tablet 100 mg 100 mg Oral BID nystatin (NYSTOP) topical powder Topical BID [Aug] pantoprazole DR (PROTONIX) tablet 80 mg 80 mg Oral QDAY(21) [Aug] rosuvastatin (CRESTOR) tablet 40 mg 40 mg Oral QDAY [Aug] senna/docusate (SENOKOT-S) tablet 2 tablet 2 tablet Oral BID [Aug] sucralfate (CARAFATE) tablet 1 g 1 g Oral QID Continuous Infusions: diltiazem (cardIZEM) 125 mg in sodium chloride 0.9% (NS) 125 mL IV drip ( std conc) 5 mg/hr (03/29/18 0030) lactated ringers infusion sodium chloride 0.9 % infusion PRN and Respiratory Meds:[Aug] acetaminophen Q6H PRN, fentaNYL citrate PF Intra-procedure Med, [Aug] hydrOXYzine TID PRN, midazolam Intra-procedure Med, [Aug] nitroglycerin Q5 MIN PRN, [Aug] ondansetron Q8H PRN, [Aug] traMADol Q6H PRN Vital Signs: Last Filed Vital Signs: 24 Hour Range BP: 125/55 (03/29 839) Temp: 36.4 C (97.6 F) (03/29 741) Pulse: 79 (03/29 839) Respirations: 19 PER MINUTE (03/29 741) SpO2: 92 % (03/29 741) O2 Delivery: Nasal Cannula (03/29 741) BP: (107-141)/(45-92) Temp: [36.4 C (97.6 F)-36.9 C (98.5 F)] Pulse: [59-120] Respirations: [16 PER MINUTE-20 PER MINUTE] SpO2: [82 %-94 %] O2 Delivery: Nasal Cannula NPO Status: Airway: mouth: no abnormalities noted Anesthesia Classification: ASA III (A patient with a severe systemic disease that limits activity, but is not incapacitating) NPO Status: Acceptable Preganancy Status: N/A Lab/Radiology/Other Diagnostic Tests Labs: 24-hour labs: Results for orders placed or performed during the hospital encounter of (from the past 24 hour(s)) POC GLUCOSE Collection Time: 03/28/18 1:13 PM Result Value Ref Range Glucose, POC 196 (H) 70 - 100 MG/DL POC GLUCOSE Collection Time: 03/28/18 5:14 PM Result Value Ref Range Glucose, POC 231 (H) 70 - 100 MG/DL POC GLUCOSE Collection Time: 03/28/18 9:23 PM Result Value Ref Range Glucose, POC 241 (H) 70 - 100 MG/DL CBC AND DIFF Collection Time: 03/29/18 5:00 AM Result Value Ref Range White Blood Cells 7.6 4.5 - 11.0 K/UL RBC 2.76 (L) 4.0 - 5.0 M/UL Hemoglobin 8.7 (L) 12.0 - 15.0 GM/DL Hematocrit 26.5 (L) 36 - 45 % MCV 95.9 80 - 100 FL MCH 31.5 26 - 34 PG MCHC 32.8 32.0 - 36.0 G/DL RDW 18.6 (H) 11 - 15 % Platelet Count 194 150 - 400 K/UL MPV 9.1 7 - 11 FL Neutrophils 72 41 - 77 % Lymphocytes 13 (L) 24 - 44 % Monocytes 10 4 - 12 % Eosinophils 5 0 - 5 % Basophils 0 0 - 2 % Absolute Neutrophil Count 5.50 1.8 - 7.0 K/UL Absolute Lymph Count 1.00 1.0 - 4.8 K/UL Absolute Monocyte Count 0.80 0 - 0.80 K/UL Absolute Eosinophil Count 0.30 0 - 0.45 K/UL Absolute Basophil Count 0.00 0 - 0.20 K/UL COMPREHENSIVE METABOLIC PANEL Collection Time: 03/29/18 5:00 AM Result Value Ref Range Sodium 132 (L) 137 - 147 MMOL/L Potassium 4.7 3.5 - 5.1 MMOL/L Chloride 100 98 - 110 MMOL/L Glucose 251 (H) 70 - 100 MG/DL Blood Urea Nitrogen 34 (H) 7 - 25 MG/DL Creatinine 2.45 (H) 0.4 - 1.00 MG/DL Calcium 9.3 8.5 - 10.6 MG/DL Total Protein 7.5 6.0 - 8.0 G/DL Total Bilirubin 0.6 0.3 - 1.2 MG/DL Albumin 3.2 (L) 3.5 - 5.0 G/DL Alk Phosphatase 66 25 - 110 U/L AST (SGOT) 27 7 - 40 U/L CO2 25 21 - 30 MMOL/L ALT (SGPT) 7 7 - 56 U/L Anion Gap 7 3 - 12 eGFR Non 20 (L) >60 mL/min eGFR 24 (L) >60 mL/min POC GLUCOSE Collection Time: 03/29/18 8:37 AM Result Value Ref Range Glucose, POC 215 (H) 70 - 100 MG/DL Conner Martines MD Pager Associated attestation - Dannielle Covington MD - 03/29/2018 10:56 AM CDT ATTESTATION I personally interviewed and examined the patient. I performed the dempsey portions of the E/M visit, discussed case with fellow and concur with fellow documentation of history, physical exam, assessment, and treatment plan unless otherwise noted. Staff name: Dannielle Covington MD Date: 03/29/2018 * Renata Jules APRN - 03/26/2018 10:35 AM CDT Pre-Procedure History and Physical/Sedation Plan Procedure Date: 03/26/2018 Planned Procedure(s): Left chest tube placement Indication: L pleural effusion s/p CABG Chief Complaint: L pleural effusion History of Present Illness: Lucrecia Fields is a 62 y.o. female with a history significant for CABG and pleural effusion who presents today for procedure. Patient Active Problem List Diagnosis Date Noted Atrial fibrillation (HCC) 03/25/2018 Hypertension 02/23/2018 DELROY (acute kidney injury) (HCC) 02/18/2018 CAD (coronary artery disease) 02/16/2018 HLD (hyperlipidemia) 02/16/2018 Hypothyroidism 02/16/2018 Hepatitis B 02/16/2018 Obstructive pattern present on pulmonary function testing 02/16/2018 Acute blood loss anemia 02/16/2018 Thrombocytopenia (HCC) 02/16/2018 Junctional rhythm 02/16/2018 Type 2 diabetes mellitus with circulatory disorder, without long-term 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 (HCC) 02/12/2018 PAF (paroxysmal atrial fibrillation) (HCC) 02/12/2018 Atrial fibrillation with rapid ventricular response (HCC) 02/12/2018 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 anemia 11/13/2017 Anemia 09/28/2017 Past Medical History: Diagnosis Date Acquired hypothyroidism Arthritis Back pain Bleeding disorder (HCC) Coronary artery disease Diabetes mellitus (HCC) Type II Hypertension Stomach disorder Vision decreased Past Surgical History: Procedure Laterality Date HX HEART CATHETERIZATION 2016 CORONARY STENT PLACEMENT 2016 CORONARY ARTERY BYPASS GRAFT N/A 02/16/2018 CORONARY ARTERY BYPASS WITH ARTERIAL GRAFT - 4 GRAFTS (Internal Mammary Artery and Endovascular Vein [facility]) performed by [facility] Pal [facility] at [facility] HX MAZE N/A 02/16/2018 MAZE PROCEDURE performed by Lance Pal MD at [facility] ANKLE SURGERY Left ankle reconstruction COLONOSCOPY HX KNEE ARTHROSCOPY Left HX TONSIL AND ADENOIDECTOMY TUBAL LIGATION UPPER GASTROINTESTINAL ENDOSCOPY Prescriptions Prior to Admission Medication Sig Dispense Refill Last Dose acetaminophen (TYLENOL) 325 mg tablet Take two tablets by mouth every 6 hours as needed. 0 03/25/2018 aspirin 81 mg chewable tablet Chew one tablet by mouth daily with food. 90 tablet 3 03/25/2018 cetirizine (ZYRTEC) 10 mg tablet Take 10 mg by mouth every morning. 2017 clobetasol (TEMOVATE) 0.05 % topical cream Apply to affected area twice daily as needed Past Week diphenhydrAMINE (BENADRYL ALLERGY) 25 mg tablet Take 25 mg by mouth at bedtime as needed. 03/24/2018 folic acid (FOLVITE) 1 mg tablet Take 1 mg by mouth daily. 03/25/2018 furosemide (LASIX) 20 mg tablet Take 20 mg by mouth at bedtime daily. 03/2018 GLUCOSAMINE HCL/CHONDROITIN CALDERON (GLUCOSAMINE-CHONDROITIN PO) Take 1 tablet by mouth twice daily. 03/25/2018 insulin aspart U-100 (NOVOLOG) 100 unit/mL injection Inject four Units under the skin three times daily with meals. 10 mL 30 03/24/2018 insulin NPH (HUMULIN N NPH U-100 INSULIN) 100 unit/mL injection Inject fourteen Units under the skin every morning. 10 mL 30 03/24/2018 Insulin Syringe-Needle U-100 (BD INSULIN SYRINGE ULTRA-FINE) 0.3 mL 31 gauge x 5/16 syrg Use four times daily with Insulin 100 each 0 Taking levothyroxine (SYNTHROID) 175 mcg tablet Take 175 mcg by mouth daily 30 minutes before breakfast. 03/25/2018 metoprolol tartrate (LOPRESSOR) 100 mg tablet Take 100 mg by mouth twice daily. 03/25/2018 metoprolol tartrate (LOPRESSOR) 50 mg tablet Take one tablet by mouth twice daily. 30 tablet 1 med correction nitroglycerin (NITROSTAT) 0.[address] 0.4 mg under tongue every 5 minutes as needed for Chest Pain. Max of 3 tablets, call 911. >[address](+) (PRILOSEC) 40 mg capsule Take 40 mg by mouth twice daily. 03/25/2018 ondansetron (ZOFRAN) 8 mg tablet Take 8 mg by mouth every 8 hours as needed for Nausea or Vomiting. Past Week rosuvastatin (CRESTOR) 40 mg tablet Take one tablet by mouth daily. 90 tablet 3 med not active senna/docusate (SENOKOT-S) 8.6/50 mg tablet Take two tablets by mouth twice daily. (Patient taking differently: Take 2 tablets by mouth at bedtime daily.) 20 tablet 0 03/24/2018 sucralfate (CARAFATE) 1 gram tablet Take 1 g by mouth four times daily. Take on an empty stomach. med not active tiZANidine (ZANAFLEX) 4 mg tablet Take 4 mg by mouth every 6 hours as needed. 03/24/2018 traMADol (ULTRAM) 50 mg tablet Take one tablet by mouth every 6 hours as needed for Pain. 30 tablet 0 03/25/2018 Allergies Allergen Reactions Diltiazem RASH, NAUSEA AND VOMITING and SEE COMMENTS Sore mouth Sulfa (Sulfonamide Antibiotics) RASH Duricef [Cefadroxil] NAUSEA AND VOMITING Pravastatin NAUSEA AND VOMITING Simvastatin NAUSEA AND VOMITING Social History: Social History Substance Use Topics Smoking status: Former Smoker Packs/day: 2.00 Years: 10.00 Types: Cigarettes Quit date: 09/28/1981 Smokeless tobacco: Never Used Alcohol use Yes Comment: Seldom Family History Problem Relation Age of Onset [...] Grandmother Diabetes Paternal Grandmother Cancer Paternal Grandfather Review of Systems A comprehensive review of systems was negative. Previous Personal Anesthetic/Sedation History: Denies adverse events related to sedation/anesthesia. Previous Family Anesthetic/Sedation History: Denies adverse events related to sedation/anesthesia. Physical Exam: Vital Signs: Last Filed In 24 Hours Vital Signs: 24 Hour Range BP: 120/63 (03/26 1033) Temp: 36.8 C (98.2 F) (03/26 0709) Pulse: 109 (03/26 1031) Respirations: 18 PER MINUTE (03/26 1031) SpO2: 93 % (03/26 1031) O2 Delivery: None (Room Air) (03/26 1031) SpO2 Pulse: 108 (03/25 1713) Height: 162.6 cm (64") (03/25 1838) BP: (110-141)/(51-94) Temp: [36.4 C (97.6 F)-36.9 C (98.5 F)] Pulse: [80-125] Respirations: [18 PER MINUTE-22 PER MINUTE] SpO2: [85 %-100 %] O2 Delivery: None (Room Air) Intensity Pain Scale (Self Report): 6 (03/26/18 0832) General appearance: alert and no distress noted. Neurologic: Grossly normal. Lungs: Non labored. Heart: regular rate and rhythm Airway: airway assessment performed Mallampati II (soft palate, uvula, fauces visible) Head and Neck: no abnormalities noted Mouth: no abnormalities noted NPO status: Acceptable Status: Not Anesthesia Classification: ASA II (A normal patient with mild systemic disease) Sedation/Medication Plan: Fentanyl and Midazolam Discussion/Reviews: Physician has discussed risks and alternatives of this type of sedation and above planned procedures with patient Lab/Radiology/Other Diagnostic Tests:Labs: Pertinent labs reviewed Renata Jules APRN Pager [phone] * Shashi Chan MD - 03/25/2018 6:02 PM CDT Admission History and Physical Examination Name: Lucrecia Fields Admission Date: 03/25/2018 Assessment/Plan: Active Problems: Atrial fibrillation (HCC) Lucrecia Fields is a 62 y.o. female, the patient has a past medical history of Acquired hypothyroidism; Arthritis; Back pain; Bleeding disorder (HCC); Coronary artery disease; Diabetes mellitus (HCC); Hypertension; Stomach disorder ; and Vision decreased. presenting with shortness of breath, dizziness/ lightheadedness, chills, nausea, lower extremity swelling and palpitations. 1. Atrial fibrillation, not on AC - has had intermittent atrial flutter since CABG - not on AC due to history of GIB - has had palpitations for about 1 week prior to presentation, no CP or syncope - EKG on admission: atrial fibrillation, rate 98, no ST changes Plan for today: > Continue ASA and Metoprolol > rate controlled now, may require extra beta nneka overnight if she becomes persistently tachy 2. Shortness of Breath/Lower extremity swelling, concern for DVT - LLE swelling greater than right since surgery - has history of DVT - BNP 327 on admission - CXR with persistent left sided pleural effusion Plan for today: > Follow up LE US, if positive, will cautiously start heparin > 40 IV lasix given, may need more overnight > may need CTA overnight > With concern for clot and vague neuro complaints, will get CT head, discuss with neuro overnight if needed 3. CAD s/p CABG 02/16/18 - no chest pain, surgical scar well healing - trop/EKG negative for ischemia on admission Plan for today: > Continue ASA, BB > Consult CTS for persistent left sided pleural effusion > Will send for cultures since she recently had surgery and has had progressive fatigue/SOB 4. History of GIB - has had extensive work up and evaluation by GI - frequent upper/lower GIB - requires frequent blood transfusions Plan for today: > Consult GI as anticoagulation will likely be needed > Will send for type and cross now 5. Hypothyroidism > Continue Synthroid 6. 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 HTN > Continue metoprolol 8. DMII - YARD WORKER regimen: NPH 14u QD, Novolog 4u TID w/ meals > Continue YARD WORKER regimen Fluids, electrolytes and Nutrition: IVF: no IVF Electrolytes: Monitor and replace PRN. Diet: NPO at OR Prophylaxis: DVT: will start heparin if patient has DVT Stress ulcer: PPI Code status: Full Code Disposition: admit to [facility] Patient seen and discussed with Dr. Pak. Primary Care Physician: Carla Wilson Chief Complaint: Shortness of breath, lower extremity swelling, fatigue Subjective: Lucrecia Fields is a 62 y.o. female, the patient has a past medical history of Acquired hypothyroidism; Arthritis; Back pain; Bleeding disorder (HCC); Coronary artery disease; Diabetes mellitus (HCC); Hypertension; Stomach disorder ; and Vision decreased. presenting with shortness of breath, dizziness/ lightheadedness, chills, nausea, lower extremity swelling and palpitations. She states that she recently had coronary artery bypass on 02/16/18 here at . She states that her post surgical hospital stay was complicated by atrial fibrillation and atrial flutter, as well as a pleural effusion. She states that she was discharged home and initially had done well after surgery. She states that about a week after discharge she began to develop shortness of breath, lower extremity swelling, palpitations, and dizziness and lightheadedness. She states that over the following weeks these symptoms have worsened. She states that they have significantly worsened over the last week and notes the development of chills, nausea, worsening paroxysmal nocturnal dyspnea, and a 7 pound weight gain. She states that she was evaluated by Dr. Pal's clinic yesterday and was recommended at that time that she be admitted to the hospital for further workup and treatment. She states that since they live in [facility] [place] they declined admission at the time of that as they did not have anything with them. Due to her worsening symptomatology, they read presented to the emergency department tonight for further evaluation. Again, she states that she has shortness of breath with minimal exertion. She denies any overt chest pain with this but does state that she has some superficial tenderness surrounding her surgical incision. This is not been warm or had any drainage. Again, she notes dizziness, lightheadedness, and palpitations. She has not had any syncope. She does note that nightly she has to get up to the side of the bed because she is short of breath. She sleeps on multiple pillows but the elevation at which she sleeps has not changed. Finally , she notes progressive lower extremity swelling and a 7 pound weight gain. She states that her left leg is significantly more swollen than her right but attributed that to the saphenous vein graft harvesting for her surgery. She states that she has a history of DVTs and this swelling and tenderness in her left lower extremity feels similar to these prior incidents. In regards to her chronic medical disease, she states that she has a rare GI disorder that causes her to have GI bleeds frequently. She states that she has had one "dark stool" last week but does not have any andrea blood. She states that she requires multiple transfusions the last one being last Thursday. She states that following this her hemoglobin was 9. She frequently requires blood transfusions and for this fact and her history of GI bleeds she has not been anticoagulated. She is only taking aspirin at this time. She also has hypertension, hyperlipidemia, and hypothyroidism for which she takes medications. She is also taking an insulin regimen for her diabetes. Finally, we discussed the risk of stroke in patients with atrial fibrillation you are not anticoagulated. She does state that she has had intermittent word slurring since her surgery. This is confirmed by her who is with her here today. She also states that her daughter has noticed that she slurs her words periodically. She also states that her voice has "changed since surgery" . She denies any facial droop or weakness/numbness in any of her extremities. We discussed her complex medical presentation and needing to be admitted to the hospital for further evaluation of a potential blood clot in her leg, further workup of her atrial fibrillation, and evaluation of her shortness of breath. This will include consults to gastroenterology as well as cardiothoracic surgery. She is agreeable to this and does not have any questions. ROS: A comprehensive 14-point ROS was negative except for: shortness of breath, dizziness/lightheadedness, chills, nausea, PND, lower extremity swelling R>L Past Medical History: Diagnosis Date Acquired hypothyroidism Arthritis Back pain Bleeding disorder (HCC) Coronary artery disease Diabetes mellitus (HCC) Type II Hypertension Stomach disorder Vision decreased Past Surgical History: Procedure Laterality Date HX HEART CATHETERIZATION 2017 CORONARY STENT PLACEMENT 2017 CORONARY ARTERY BYPASS GRAFT N/A 02/16/2018 CORONARY ARTERY BYPASS WITH ARTERIAL GRAFT - 4 GRAFTS (Internal Mammary Artery and Endovascular Vein [facility]) performed by Lance Pal MD at [facility] HX MAZE N/A 02/16/2018 MAZE PROCEDURE performed by Lance Pal MD at [facility] ANKLE SURGERY Left ankle reconstruction COLONOSCOPY HX [...] Social History Narrative No narrative on file Allergies: Diltiazem; Sulfa (sulfonamide antibiotics); Duricef [cefadroxil]; Pravastatin; and Simvastatin Medications: No current facility-administered medications on file prior to encounter. Current Outpatient Prescriptions on File Prior to Encounter Medication Sig Dispense Refill acetaminophen (TYLENOL) 325 mg tablet Take two tablets by mouth every 6 hours as needed. 0 aspirin 81 mg chewable tablet Chew one tablet by mouth daily with food. 90 tablet 3 cetirizine (ZYRTEC) 10 mg tablet Take 10 mg by mouth every morning. folic acid (FOLVITE) 1 mg tablet Take 1 mg by mouth daily. GLUCOSAMINE HCL/CHONDROITIN CALDERON (GLUCOSAMINE-CHONDROITIN PO) Take 1 tablet by mouth twice daily. insulin aspart U-100 (NOVOLOG) 100 unit/mL injection Inject four Units under the skin three times daily with meals. 10 mL 30 insulin NPH (HUMULIN N NPH U-100 INSULIN) 100 unit/mL injection Inject fourteen Units under the skin every morning. 10 mL 30 Insulin Syringe-Needle U-100 (BD INSULIN SYRINGE ULTRA-FINE) 0.3 mL 31 gauge x 5/16 syrg Use four times daily with Insulin 100 each 0 levothyroxine (SYNTHROID) 175 mcg tablet Take 175 mcg by mouth daily 30 minutes before breakfast. metoprolol tartrate (LOPRESSOR) 50 mg tablet Take one tablet by mouth twice daily. 30 tablet 1 nitroglycerin (NITROSTAT) 0.[address] 0.4 mg under tongue every 5 minutes as needed for Chest Pain. Max of 3 tablets, call 911. omeprazole DR(+) (PRILOSEC) 40 mg capsule Take 40 mg by mouth twice daily. ondansetron (ZOFRAN) 8 mg tablet Take 8 mg by mouth every 8 hours as needed for Nausea or Vomiting. rosuvastatin (CRESTOR) 40 mg tablet Take one tablet by mouth daily. 90 tablet 3 senna/docusate (SENOKOT-S) 8.6/50 mg tablet Take two tablets by mouth twice daily. 20 tablet 0 sucralfate (CARAFATE) 1 gram tablet Take 1 g by mouth four times daily. Take on an empty stomach. traMADol (ULTRAM) 50 mg tablet Take one tablet by mouth every 6 hours as needed for Pain. 30 tablet 0 Physical Exam: Vitals: Vital Signs: Last Filed In 24 Hours Vital Signs: 24 Hour Range BP: 118/71 (03/25 1714) Temp: 36.4 C (97.6 F) (10/11 1433) Pulse: 110 (03/25 1713) Respirations: 20 PER MINUTE (03/25 1600) SpO2: 95 % (03/25 1713) O2 Delivery: None (Room Air) (03/25 1433) SpO2 Pulse: 108 (03/25 1713) Height: 162.6 cm (64") (03/25 1433) BP: (118-124)/(71-76) Temp: [36.4 C (97.6 F)] Pulse: [96-110] Respirations: [18 PER MINUTE-20 PER MINUTE] SpO2: [95 %-100 %] O2 Delivery: None (Room Air) GEN: Alert and oriented x 4, no acute distress, cooperative, appropriately participative in exam. HEAD: Head is normocephalic and atraumatic. EYES: Pupils equal and reactive to light. Conjunctiva and sclera are clear. Extraocular movements are intact bilaterally. ENT: Ears are clear bilaterally. Oropharynx pink and moist. CHEST: Lungs, clear to auscultation bilaterally with no wheezes, rales or rhonchi. No accessory muscle use or respiratory distress. Well healing midline sternotomy scar without any obvious signs of infection CV: Irregularly irregular rhythm. S1 and S2 noted. No murmurs noted. BUE/BLE pulses 2+. ABD: Obese, Soft, non-tender, non-distended. Bowel Sounds present. No rebound tenderness, no guarding. MSK: Adequately aligned spine. ROM intact spine and extremities. No joint erythema or tenderness. Normal muscular development. EXTRM: No significant deformity or joint abnormality. Significant lower extremity edema L>R, well healing saphenous vein graft harvesting scar HEME/LYMPH: No active bleeding. No cervical, supraclavicular or infraclavicular lymphadenopathy appreciated. SKIN: No rashes or lesions. NEURO: CN II-XII grossly intact. Behavior, speech, mood, thought content appropriate. Sensation and strength grossly intact throughout. Lab/Radiology/Other Diagnostic Tests: Recent Labs 03/25/18 1607 NA 134* K 4.4 CL 104 CO2 25 GAP 5 BUN 27* CR 1.62* GLU 163* CA 9.5 ALBUMIN 3.5 MG 1.8 PO4 3.5 Recent Labs 03/25/18 1607 WBC 4.8 HGB 8.5* HCT 27.1* PLTCT 157 AST 16 ALT 7 ALKPHOS 73 Estimated Creatinine Clearance: 45.6 mL/min (A) (based on SCr of 1.62 mg/dL (H)) . Vitals: 03/25/18 1433 Weight: 113.8 kg (250 lb 12.8 oz) No results for input(s): PHART, PO2ART in the last 72 hours. Invalid input(s): PC02A Glucose: (!) 163 (03/25/18 1607) Pertinent radiology reviewed Shashi Chan MD Associated attestation - Kavon Pak MD - 03/25/2018 9:01 PM CDT Staff: I have personally interviewed and examined the patient with the resident. I have reviewed all pertinent labs and x-rays. The medication list has been reviewed. I personally performed the dempsey portions of the E/M visit, discussed case with resident and concur with resident documentation of history, physical exam, assessment, and treatment plan unless otherwise noted. Ms. Fields is well pleasant 62-year-old female with history of coronary artery disease status post bypass graft on February 16, 2018 with PRIDE to LAD, SVG to OM and left posterolateral branch and SVG to PDA, diabetes, hypertension, paroxysmal atrial fibrillation. Patient had repeated episodes of atrial flutter and fibrillation after the surgery for which EP was consulted. She had prolonged history of GI bleeding and had capsule endoscopy demonstrating G AVE. She requires multiple blood transfusions repeatedly and has been followed by group rooms coordinator. Last blood transfusion was about a week ago. She generally requires blood transfusion at least once a month. She was seen in CT surgery clinic yesterday and was noted to be in atrial tachycardia and was advised to be admitted. However, patient declined. She complains of increased shortness of breath since discharge as well as paroxysmal nocturnal dyspnea leg swelling and weight gain. Leg swelling is more prominent in the left lower extremity from where the vein graft was harveste 1. Shortness of breath and leg swelling and atrial arrhythmia: Her left ventricular systolic function was normal however quality of study was limited as per last echocardiogram. Patient likely had diastolic dysfunction related to atrial fibrillation with rapid ventricular response and other atrial arrhythmias. Her EKG demonstrated atrial tachycardia yesterday however today's EKG demonstrated atrial fibrillation. Dose of metoprolol was increased to 100 mg twice a day and she was seen in CT surgery clinic yesterday. We could consider cardioversion however patient is not anticoagulated and had a history of extensive GI bleeding requiring blood transfusion every few weeks. We will continue the rate control for now. Will have GI consult to evaluate whether she will need surgery to control her GI bleeding. I am concerned about her vague neurological symptoms when she complains of some speech changes. CT had as been requested without contrast. Left atrial appendage was ligated at the time of surgery however she can still have a thrombus in the left atrium. We will consider getting a transesophageal echocardiogram to assess any left atrial appendage thrombus if needed. Even if there is a thrombus it will be difficult to anticoagulate in light of recurrent GI bleeding. She is only on 20 mg of p.o. Lasix at home. Will give at least 40 mg of IV Lasix now and depending on urine output will give further Lasix overnight and tomorrow. 1. Shortness of breath and leg swelling and atrial arrhythmia: -Her left ventricular systolic function was normal however quality of study was limited as per last echocardiogram. -Patient likely had diastolic dysfunction related to atrial fibrillation with rapid ventricular response and other atrial arrhythmias. Her EKG demonstrated atrial tachycardia yesterday however today's EKG demonstrated atrial fibrillation. Dose of metoprolol was increased to 100 mg twice a day and she was seen in CT surgery clinic yesterday. -We could consider cardioversion however patient is not anticoagulated and had a history of extensive GI bleeding requiring blood transfusion every few weeks. -We will continue the rate control for now. Will have GI consult to evaluate whether she will need surgery to control her GI bleeding. I am concerned about her vague neurological symptoms when she complains of some speech changes. CT had as been requested without contrast. Left atrial appendage was ligated at the time of surgery however she can still have a thrombus in the left atrium. -We will consider getting a transesophageal echocardiogram to assess any left atrial appendage thrombus if needed. Even if there is a thrombus it will be difficult to anticoagulate in light of recurrent GI bleeding. -She is only on 20 mg of p.o. Lasix at home. Will give at least 40 mg of IV Lasix now and depending on urine output will give further Lasix overnight and tomorrow. Leg swelling is more prominent in the left lower extremity and lower extremity duplex has been requested. If it is positive for deep venous thrombosis and we have to consider IVC filter as well. -If DVT is positive and may have to consider CT angiography to evaluate any pulmonary embolus. 2.GI bleeding: We will hold off anticoagulation for now and will get GI consult. in this encounter Procedure Notes * Conner Martines MD - 04/07/2018 1:01 PM CDT Procedure(s): COLONOSCOPY REPORT Endoscopy Report Please refer to full ProVation MD report in results tab. Summary of findings: - Preparation of the colon was poor. [...] Non-bleeding external hemorrhoids. - No specimens collected. Recommendations: - Resume previous diet. - Continue present medications. - Continue to monitor for overt signs of bleeding. - Consider hemorrhoidal cream - Repeat colonoscopy at appointment to be scheduled due to suboptimal preparation, once acute issues are stabilized. in this encounter Consult Notes * Reilly Olivera - 03/31/2018 6:45 PM CDT Associated Order(s): CONSULT NEPHROLOGY PHYSICIAN Renal Consult Lucrecia Fields Admission Date: 03/25/2018 Assessment and Plan Principal Problem: Atrial fibrillation with rapid ventricular response (HCC) Active Problems: Type 2 diabetes mellitus with circulatory disorder, without long-term 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 (HCC) PAF (paroxysmal atrial fibrillation) (HCC) Chronic gastrointestinal bleeding Transfusion-dependent anemia CAD (coronary artery disease), [place] coronary artery HLD (hyperlipidemia) Hypothyroidism DELROY (acute kidney injury) (HCC) Essential hypertension Pleural effusion on left Left leg cellulitis Long's esophagus Acute on chronic diastolic heart failure due to coronary artery disease (HCC) Lucrecia Fields is a 62 y.o. female s/p CABG admitted for dyspnea and volume overload. DELROY -no significant CKD -renal ultrasound without hydronephrosis -no recent nephrotoxins -creatinine progressively increasing -I&O appear inaccurate -FeUrea 8% suggesting renal hypoperfusion Atrial flutter Leukocytosis CAD s/p CABG Anemia HTN Hyponatremia, hypervolemic Recommendations: -agree that patient appears volume overloaded -repeat TTE without significant change in cardiac function -increase IV diuretics, perhaps 80 mg furosemide IV BID with chlorothiazide 250 mg -it is unclear what has caused her clinical decline; would send blood cultures, urine culture -no indication for hemodialysis at this time -will review urine sediment when available -strict I&O, standing daily wieght -patient seen with Dr. Noland -please call with questions or concerns Reilly Olivera MD PGY-5 Nephrology Fellow Pager [phone] History Reason for Consult: DELROY HPI: Lucrecia Fields is a 62 y.o. female with CAD s/p CABG 94/18, T2Dm, HTN, hypothyroidism, a-fib who was admitted for progressive dyspnea and edema. She had been started on IV diuretics, but her response has been suboptimal and her creatinine continues to increase. There has been no recent nephrotoxin exposure or hemodynamic insult. She is in mild respiratory distress at the time of examination and is able to answer simple questions, but is not a detailed historian. Her was present at the time of consultation. All questions were answered. Past Medical History Past Medical History: Diagnosis Date Acquired hypothyroidism Arthritis Back pain Bleeding disorder (HCC) CAD (coronary artery disease), [place] coronary artery 02/16/2018 Chronic diastolic heart failure (HCC) 03/31/2018 Coronary artery disease Diabetes mellitus (HCC) Type II Essential hypertension 02/23/2018 Hypertension Stomach disorder Vision decreased Past Surgical History: Procedure Laterality Date HX HEART CATHETERIZATION 2016 CORONARY STENT PLACEMENT 2017 CORONARY ARTERY BYPASS GRAFT N/A 02/16/2018 CORONARY ARTERY BYPASS WITH ARTERIAL GRAFT - 4 GRAFTS (Internal Mammary Artery and Endovascular Vein [place]) performed by [facility] Pal [facility] at [facility] HX MAZE N/A 02/16/2018 MAZE PROCEDURE performed by Lance Pal MD at [facility] UPPER GASTROINTESTINAL ENDOSCOPY N/A 03/29/2018 ESOPHAGOGASTRODUODENOSCOPY performed by Dannielle Covington MD at ENDO/GI ANKLE SURGERY Left ankle reconstruction COLONOSCOPY HX KNEE ARTHROSCOPY Left HX TONSIL AND ADENOIDECTOMY TUBAL LIGATION UPPER GASTROINTESTINAL ENDOSCOPY Family History Family history reviewed; non-contributory Social History Social History Social History Marital status: Spouse [...] Social History Narrative No narrative on file Medications MEDS aspirin 81 mg Oral QDAY cetirizine 10 mg Oral QAM8 diltiazem 45 mg Oral Q6H doxycycline 100 mg Oral BID folic acid 1 mg Oral QDAY heparin (porcine) 5,000 Units Subcutaneous Q8H insulin aspart U-100 0-14 Units Subcutaneous ACHS insulin NPH 18 Units Subcutaneous QDAY(07) levothyroxine 175 mcg Oral QDAY 30 min before breakfast metoprolol tartrate 100 mg Oral BID nystatin Topical BID pantoprazole DR 80 mg Oral QDAY() rosuvastatin 40 mg Oral QDAY senna/docusate 2 tablet Oral BID sucralfate 1 g Oral QID IV MEDS Prn acetaminophen Q6H PRN 650 mg at 03/30/18 1246, fentaNYL citrate PF Intra-procedure Med 25 mcg at 03/26/18 1215, hydrOXYzine TID PRN 25 mg at 1246, midazolam Intra-procedure Med 1 mg at 03/26/18 1213, nitroglycerin Q5 MIN PRN, ondansetron Q8H PRN 8 mg at 03/29/18 0956, traMADol Q6H PRN 50 mg at 03/30/18 2114 HOME MEDS Prior to Admission Medications Prescriptions Last Dose Informant Patient Reported? Taking? GLUCOSAMINE HCL/CHONDROITIN CALDERON (GLUCOSAMINE-CHONDROITIN PO) 03/25/2018 Self Yes Yes Sig: Take 1 tablet by mouth twice daily. Insulin Syringe-Needle U-100 (BD INSULIN SYRINGE ULTRA-FINE) 0.3 mL 31 gauge x syrg Self No No Sig: Use four times daily with Insulin acetaminophen (TYLENOL) 325 mg tablet 03/25/2018 Self No Yes Sig: Take two tablets by mouth every 6 hours as needed. aspirin 81 mg chewable tablet 03/25/2018 Self No Yes Sig: Chew one tablet by mouth daily with food. cetirizine (ZYRTEC) 10 mg tablet 03/25/2018 Self Yes Yes Sig: Take 10 mg by mouth every morning. clobetasol (TEMOVATE) 0.05 % topical cream Past Week Self Yes Yes Sig: Apply to affected area twice daily as needed diphenhydrAMINE (BENADRYL ALLERGY) 25 mg tablet 03/24/2018 Self Yes Yes Sig: Take 25 mg by mouth at bedtime as needed. folic acid (FOLVITE) 1 mg tablet 03/25/2018 Self Yes Yes Sig: Take 1 mg by mouth daily. furosemide (LASIX) 20 mg tablet 03/24/2018 Self Yes Yes Sig: Take 20 mg by mouth at bedtime daily. insulin NPH (HUMULIN N NPH U-100 INSULIN) 100 unit/mL injection 03/24/2018 Self No Yes Sig: Inject fourteen Units under the skin every morning. insulin aspart U-100 (NOVOLOG) 100 unit/mL injection 03/24/2018 Self No Yes Sig: Inject four Units under the skin three times daily with meals. levothyroxine (SYNTHROID) 175 mcg tablet 03/25/2018 Self Yes Yes Sig: Take 175 mcg by mouth daily 30 minutes before breakfast. metoprolol tartrate (LOPRESSOR) 100 mg tablet 03/25/2018 Self Yes Yes Sig: Take 100 mg by mouth twice daily. nitroglycerin (NITROSTAT) 0.4 mg tablet >1 Month Self Yes Yes Sig: Place 0.4 mg under tongue every 5 minutes as needed for Chest Pain. Max of 3 tablets, call 911. omeprazole DR(+) (PRILOSEC) 40 mg capsule 03/25/2018 Self Yes Yes Sig: Take 40 mg by mouth twice daily. ondansetron (ZOFRAN) 8 mg tablet Past Week Self Yes Yes Sig: Take 8 mg by mouth every 8 hours as needed for Nausea or Vomiting. senna/docusate (SENOKOT-S) 8.6/50 mg tablet 03/24/2018 Self No Yes Sig: Take two tablets by mouth twice daily. Patient taking differently: Take 2 tablets by mouth at bedtime daily. tiZANidine (ZANAFLEX) 4 mg tablet 03/24/2018 Outside Pharmacy Yes Yes Sig: Take 4 mg by mouth every 6 hours as needed. traMADol (ULTRAM) 50 mg tablet 03/25/2018 Outside Pharmacy No Yes Sig: Take one tablet by mouth every 6 hours as needed for Pain. Facility-Administered Medications: None Review of Systems Constitutional: negative Eyes: negative Ears, nose, mouth, throat, and face: negative Respiratory: negative Cardiovascular: negative Gastrointestinal: negative Genitourinary:negative Integument/breast: negative Hematologic/lymphatic: negative Musculoskeletal:negative Neurological: negative Endocrine: negative Physical Exam Vital Signs: Last Filed In 24 Hours Vital Signs: 24 Hour Range BP: 122/47 (03/31 1642) Temp: 36.6 C (97.9 F) (03/31 1642) Pulse: 74 (03/31 1642) Respirations: 18 PER MINUTE (03/31 1642) SpO2: 96 % (03/31 1642) O2 Delivery: Nasal Cannula (03/31 1642) Height: 162.6 cm (64") (03/31 1157) BP: (106-130)/(40-60) Temp: [36.4 C (97.6 F)-36.7 C (98.1 F)] Pulse: [74-89] Respirations: [16 PER MINUTE-18 PER MINUTE] SpO2: [91 %-100 %] O2 Delivery: Nasal Cannula Intensity Pain Scale (Self Report): 7 (03/30/182012) Vitals: 03/30/18 0750 03/31/18 0500 03/31/18 1157 Weight: 112.6 kg (248 lb 3.2 oz) 113 kg (249 lb 1.9 oz) 112.9 kg (249 lb) Intake/Output Summary (Last 24 hours) at 03/31/18 1845 Last data filed at 03/31/18 1640 Gross per 24 hour Intake 500 ml Output 380 ml Net 120 ml Gen: drowsy, mild respiratory distress HEENT: Sclera normal; MMM CV:+ JVD, regular rhythm Pulm: Clear to Auscultation bilateral, diminished GI: BS+ x4, non-tender to palpation Neuro: drowsy, oriented Ext: moderate ble edema, no clubbing or cyanosis Skin: no rash, dry Labs Recent Labs 03/29/18 0500 03/30/18 0410 03/31/18 0350 03/31/18 1535 NA 132* 133* 133* 131* K 4.7 4.4 4.3 4.4 CL 100 100 99 99 CO2 25 25 23 24 GAP 7 8 11 8 BUN 34* 40* 48* 48* CR 2.45* 2.80* 3.06* 3.10* GLU 251* 207* 149* 142* CA 9.3 9.2 9.3 9.6 ALBUMIN 3.2* 3.2* 3.4* 3.5 Recent Labs 03/29/18 0500 03/30/18 0410 03/31/18 0350 03/31/18 1535 WBC 7.6 7.0 10.9 -- HGB 8.7* 8.4* 8.9* -- HCT 26.5* 26.3* 27.4* -- PLTCT 194 167 200 -- AST 27 10 14 14 ALT 7 4* 5* 6* ALKPHOS 66 62 59 60 Estimated Creatinine Clearance: 23.8 mL/min (A) (based on SCr of 3.1 mg/dL (H)). Vitals: 03/30/18 0750 03/31/18 0500 03/31/18 1157 Weight: 112.6 kg (248 lb 3.2 oz) 113 kg (249 lb 1.9 oz) 112.9 kg (249 lb) Recent Labs 03/31/18 0445 PHART 7.30* PO2ART 76* Radiology Pertinent radiology reviewed. Associated attestation - Alyx Noland MBBS - 03/31/2018 11:17 PM CDT ATTESTATION I personally performed the history and the physical examination of the patient and discussed his management with the fellow (resident). I reviewed the fellow' s (residents) note and agree with the documented findings and plan of care. A 62 year old female pt with recent CABG on 02/16 admitted for evaluation of new onset atrial fibrillation. She was found to have pleural effusion s/p chest tube placement. She is known to have CKD stage 3 with baseline Cr close to 1.8 She developed oliguric DELROY over the last few days with no clear insults. No recent contrast. Received Amoxicllin 03/26-03/28. Renal US showed unremarkable kidneys, No urgent indication for HD. Would continue with IV diuresis given increased oxygen requirement and CXR findings. Check CPK and uric acid. Check urine eosinophils. We will examine urine sediment, Repeat UA, urine sodium, urine urea and urine creatinine tomorrow am. Obtain blood and urine cultures. Staff name: Alyx Noland Date: 03/31/2018 * Ervin Woodall DO - 03/26/2018 6:01 PM CDT Associated Order(s): CONSULT GASTROENTEROLOGY PHYSICIAN This note is only to fill a consult order. Please see my previous note for full details. * Anthony Saldivar MD - 03/26/2018 11:54 AM CDT Associated Order(s): CONSULT CARDIOLOGY PHYSICIAN CARDIAC ELECTROPHYSIOLOGY CONSULT NOTE I called and discussed her care with Dr. Pak. Patient was not seen. She is a medically complicated woman who has had acute GI bleeding with a hemoglobin of 7.9. There were questions about plans for rhythm versus rate control for her. She had a left atrial appendage surgical ligation at the time of her recent heart surgery. It is uncertain whether this is completely closed off (has not had a follow-up TODD). Given uncertain ability to tolerate anticoagulation ongoing, I would not recommend rhythm control. She would not be a candidate for ablation. Lenient rate control can be continued given her acute illness and GI bleeding. Afterwards, she can transition to a more stable chronic regimen. If she is able to tolerate chronic anticoagulation, rhythm control can be revisited. Please let us know if we can be of further assistance. Anthony Saldivar MD, [facility], [facility], [phone] 03/26/2018 11:54 AM * Susan Peace RN - 03/26/2018 7:23 AM CDT Associated Order(s): CONSULT CARDIOLOGY PHYSICIAN Patient admitted to cardiology service - see H&P. * Lakeisha Smallwood MD - 03/25/2018 9:30 PM CDT Associated Order(s): CONSULT CARDIOTHORACIC SURGERY PHYSICIAN CTS CONSULT Date of Service: 03/25/2018 Requesting Physician: Consulting Physician: Consult Performed By: HPI: Today we had the pleasure of seeing your patient, Lucrecia Fields, in our office for routine postop follow up after coronary artery bypass times 4 with endoscopic vein harvesting with left internal mammary artery anastomosed to the LAD, reversed saphenous vein graft anastomosed in sequence to the obtuse marginal and left posterolateral arteries, and reversed saphenous vein graft anastomosed to the posterior descending branch of the right coronary artery, bilateral modified CryoMaze procedure (pulmonary vein isolation) and suture ligation of left atrial appendage performed by Dr. aLnce Pal on 02/16/18. She had a complex hospital course and was seen preoperatively by GI and hematology for her history of gave as well as recurrent GI bleeding and multiple transfusions. She did develop junctional rhythm postoperatively as well as atrial tachycardia and atrial fibrillation. EP recommended outpatient follow-up. She did develop a left pleural effusion which required a pigtail drain. She was eventually discharged home. Since discharge Lucrecia Fields states she has been doing well. She has been walking daily minimally. She has followed up with her moderate needs teacher in [facility] [place] Dr. Jorge who recently saw her and performed an EKG which she states revealed atrial tachycardia with a heart rate of 120. He recommended continue follow-up in May of this year. She continues to have fatigue, shortness of breath, lightheadedness and dizziness. She has had transfusions since discharge which she had preoperatively as well. She had some left lower extremity edema and she states she had an ultrasound for this which they state were negative. EKG performed in the office yesterday revealed atrial flutter with a heart rate of 124. It was recommended that she be admitted to the hospital for rate control, but she declined admission. However, this morning she awoke feeling worse and presented to the ED in afib. She was admitted to the cardiology service. A CT head was obtained due to recent concern for word-finding difficulties and slurring of speech, which was negative. A CXR was obtained showing a left-sided pleural effusion. Cardiothoracic surgery is consulted to assist with management. Past Medical History: Diagnosis Date Acquired hypothyroidism Arthritis Back pain Bleeding disorder (HCC) Coronary artery disease Diabetes mellitus (HCC) Type II Hypertension Stomach disorder Vision decreased PSH: Past Surgical History: Procedure Laterality Date HX HEART CATHETERIZATION 2017 CORONARY STENT PLACEMENT 2017 CORONARY ARTERY BYPASS GRAFT N/A 02/16/2018 CORONARY ARTERY BYPASS WITH ARTERIAL GRAFT - 4 GRAFTS (Internal Mammary Artery and Endovascular Vein [place]) performed by Lance Pal MD at [facility] HX MAZE N/A 02/16/2018 MAZE PROCEDURE performed by Lance Pal MD at [facility] ANKLE SURGERY Left ankle reconstruction COLONOSCOPY HX KNEE ARTHROSCOPY Left HX TONSIL AND ADENOIDECTOMY TUBAL LIGATION UPPER GASTROINTESTINAL ENDOSCOPY Medications: aspirin chewable tablet 81 mg 81 mg Oral QDAY cetirizine (ZYRTEC) tablet 10 mg 10 mg Oral QAM8 folic acid (FOLVITE) tablet 1 mg 1 mg Oral QDAY furosemide (LASIX) injection 40 mg 40 mg Intravenous ONCE [START ON 03/26/2018] furosemide (LASIX) tablet 20 mg 20 mg Oral QDAY insulin aspart U-100 (NOVOLOG FLEXPEN) injection PEN 4 Units 4 Units Subcutaneous TID w/ meals [START ON 03/26/2018] insulin NPH (HUMULIN N KwikPen) injection PEN 14 Units 14 Units Subcutaneous QDAY(07) [START ON 03/26/2018] levothyroxine (SYNTHROID) tablet 175 mcg 175 mcg Oral QDAY 30 min before breakfast metoprolol tartrate (LOPRESSOR) tablet 100 mg 100 mg Oral BID pantoprazole DR (PROTONIX) tablet 80 mg 80 mg Oral QDAY(21) rosuvastatin (CRESTOR) tablet 40 mg 40 mg Oral QDAY senna/docusate (SENOKOT-S) tablet 2 tablet 2 tablet Oral BID sucralfate (CARAFATE) tablet 1 g 1 g Oral QID Allergies: Allergies Allergen Reactions Diltiazem RASH, NAUSEA AND VOMITING and SEE COMMENTS Sore mouth Sulfa (Sulfonamide Antibiotics) RASH Duricef [Cefadroxil] NAUSEA AND VOMITING Pravastatin NAUSEA AND VOMITING Simvastatin NAUSEA AND VOMITING Family History: Family History Problem Relation Age of Onset [...] Diabetes Paternal Grandmother Cancer Paternal Grandfather Social History: Social History Social History Marital status: Spouse [...] Social History Narrative No narrative on file ROS: Constitutional: Negative for Fatigue, Weight Change, Fevers Eyes, Ears, Nose And Throat: Negative for Change in vision, Change in Hearing Cardiovascular: Negative for Chest Pain; positive for palpitations and swelling in left ankle Respiratory: Negative for Cough, Shortness of Breath, wheezing Gastrointestinal: Negative for Nausea, indigestion, Diarrhea, Constipation, Rectal Bleeding Neurological: Negative for Headache, Memory problems, Numbness, Muscle Weakness Psychological: Negative for depression or anxiety Musculoskeletal: Negative for Pain or Swelling in joints Genitourinary: Negative for Pain with urination, Incontinence of urine, urinary frequency Skin: Negative for any unusual rash Endocrine: Negative for Any hair skin or nail changes, Unusual hunger or thirst Physical Exam: Temp: 36.4 C (97.6 F) (03/25 1838) Pulse: 122 (03/25 2100) Respirations: 22 PER MINUTE (03/25 1838) BP: 140/67 (03/25 2100) GENERAL: A&O x 3, NAD. HEENT Head: Normocephalic Teeth: Present and in good dentition NECK Active ROM: full Trachea: midline HEART Cardiac: Atrial fibrillation in ~110s Well-healed sternotomy incision present LUNGS Auscultation- breath sounds clear but diminished on L ABDOMEN Soft, NT + BS EXTREMITIES Edema- 3+ edema LLE, 2+ edema RLE Well-healed vein harvest incisions present Posterior Tibial- 2+ keira Dorsalis Pedis- 2+ keira SKIN: Normal, without lesions NEUROLOGIC A&O x 3 Grossly intact Results for orders placed or performed during the hospital encounter of (from the past 24 hour(s)) CBC AND DIFF Collection Time: 03/25/18 4:07 PM # # Low-High White Blood Cells 4.8 4.5 - 11.0 K/UL RBC 2.81 (L) 4.0 - 5.0 M/UL Hemoglobin 8.5 (L) 12.0 - 15.0 GM/DL Hematocrit 27.1 (L) 36 - 45 % MCV 96.3 80 - 100 FL MCH 30.2 26 - 34 PG MCHC 31.3 (L) 32.0 - 36.0 G/DL RDW 18.5 (H) 11 - 15 % Platelet Count 157 150 - 400 K/UL MPV 8.1 7 - 11 FL Neutrophils 68 41 - 77 % Lymphocytes 17 (L) 24 - 44 % Monocytes 9 4 - 12 % Eosinophils 6 (H) 0 - 5 % Basophils 0 0 - 2 % Absolute Neutrophil Count 3.20 1.8 - 7.0 K/UL Absolute Lymph Count 0.80 (L) 1.0 - 4.8 K/UL Absolute Monocyte Count 0.50 0 - 0.80 K/UL Absolute Eosinophil Count 0.30 0 - 0.45 K/UL Absolute Basophil Count 0.00 0 - 0.20 K/UL COMPREHENSIVE METABOLIC PANEL Collection Time: 03/25/18 4:07 PM # # Low-High Sodium 134 (L) 137 - 147 MMOL/L Potassium 4.4 3.5 - 5.1 MMOL/L Chloride 104 98 - 110 MMOL/L Glucose 163 (H) 70 - 100 MG/DL Blood Urea Nitrogen 27 (H) 7 - 25 MG/DL Creatinine 1.62 (H) 0.4 - 1.00 MG/DL Calcium 9.5 8.5 - 10.6 MG/DL Total Protein 7.6 6.0 - 8.0 G/DL Total Bilirubin 0.6 0.3 - 1.2 MG/DL Albumin 3.5 3.5 - 5.0 G/DL Alk Phosphatase 73 25 - 110 U/L AST (SGOT) 16 7 - 40 U/L CO2 25 21 - 30 MMOL/L ALT (SGPT) 7 7 - 56 U/L Anion Gap 5 3 - 12 eGFR Non 32 (L) >60 mL/min eGFR 39 (L) >60 mL/min MAGNESIUM Collection Time: 03/25/18 4:07 PM # # Low-High Magnesium 1.8 1.6 - 2.6 mg/dL PHOSPHORUS Collection Time: 03/25/18 4:07 PM # # Low-High Phosphorus 3.5 2.0 - 4.5 MG/DL POC TROPONIN Collection Time: 03/25/18 4:09 PM # # Low-High [id number]-ABA 0.00 0.00 - 0.05 NG/ML BNP POC ER Collection Time: 03/25/18 4:16 PM # # Low-High BNP POC 327.0 (H) 0 - 100 PG/ML LACTIC ACID (BG - RAPID LACTATE) Collection Time: 03/25/18 8:53 PM # # Low-High Lactic Acid,BG 1.3 0.5 - 2.0 MMOL/L POC GLUCOSE Collection Time: 03/25/18 9:25 PM # # Low-High Glucose, POC 190 (H) 70 - 100 MG/DL All pertinent diagnostic studies have been reviewed. Impression: Active Hospital Problems Diagnosis Atrial fibrillation (HCC) Plan: Review of Ms. Fields's CXR shows a large left-sided pleural effusion. Would recommend IR-guided drainage of her effusion. No major surgical issues appreciated; agree with GI input for long-term anticoagulation strategies given her history of afib/flutter and her previous intolerance of anticoagulation. We will continue to follow along with you. Discussed with Dr. Pal. Lakeisha Smallwood MD in this encounter Miscellaneous Notes * Care Plan - Estrella Crowder RN - 04/08/2018 7:31 PM CDT Problem: Discharge Planning Goal: Prepared for discharge Outcome: Goal Achieved Date Met: 04/08/18 Discharged patient per discharge instructions to home, I went over her discharge medication and f/u appointments with her and she verbalized understanding. I gave her a copy of the discharge instructions and her prescriptions will be transferred by pharmacy to her local pharmacy " [place], [place] " per patient request due to cost. Patient was taken to the front lobby by nursing services. * Care Plan - Sri Garcia - 04/08/2018 4:18 AM CDT Problem: Discharge Planning Goal: Participation in plan of care Outcome: Goal Ongoing Pt participating in plan of care. Voices no further questions/concerns at this time. Problem: Falls, High Risk of Goal: Absence of falls-Adult Patient Outcome: Goal Ongoing Fall bundle in place. Call light in reach. Bed alarm on. Pt states understanding of fall precautions. Problem: Pain Goal: Management of pain Outcome: Goal Ongoing Pt reports adequate management of pain. * Care Plan - Erika Myers RN - 04/07/2018 11:17 AM CDT Problem: Discharge Planning Goal: Participation in plan of care Outcome: Goal Ongoing Patient explained plan of care. Patient is A & O x 4. Patient encouraged to get involved in her care plan. Goal: Prepared for discharge Outcome: Goal Ongoing Patient care is ongoing planned colonoscopy today. Patient to discharge when medically stable. Problem: Falls, High Risk of Goal: Absence of falls-Adult Patient Outcome: Goal Ongoing High fall risk bundle in place. Patient educated on safety. Verbalizes understanding. Call light within reach and functioning. Personal effects within reach. Pt and Ot to work with patient for safety and strengthening. Problem: Pain Goal: Management of pain Outcome: Goal Ongoing Patient with pain management regimen on board and patient understands. Problem: Respiratory Impairment (Non-Ventilated Patient) Goal: Effective gas exchange Outcome: Goal Ongoing Patient oxygen saturation above 92% on RA. Patient encouraged and reminded to use IS while awake. * Care Plan - Sri Garcia - 04/07/2018 1:40 AM CDT Problem: Discharge Planning Goal: Participation in plan of care Outcome: Goal Ongoing Pt participating in plan of care. Voices no further questions/concerns at this time. Problem: Falls, High Risk of Goal: Absence of falls-Adult Patient Outcome: Goal Ongoing Fall bundle in place. Call light in reach. Bed alarm on. Pt states understanding of fall precautions. Will continue to monitor. Problem: Pain Goal: Management of pain Outcome: Goal Ongoing Pt denies pain at this time. Problem: Respiratory Impairment (Non-Ventilated Patient) Goal: Effective gas exchange Outcome: Goal Ongoing Pt currently on room air with clear lung sounds. Problem: Self-Care Deficit Goal: Maximize ADL functioning Outcome: Goal Ongoing PT/OT consulted. * Care Plan - Erika Myers RN - 04/06/2018 10:57 AM CDT Problem: Discharge Planning Goal: Participation in plan of care Outcome: Goal Ongoing Patient explained plan of care. Patient is A & O x 4. Patient encouraged to get involved in her care plan and her ADL's. Goal: Prepared for discharge Outcome: Goal Ongoing Patient care is ongoing. Pt scheduled for a test today. Patient to discharge when medically stable. Problem: Falls, High Risk of Goal: Absence of falls-Adult Patient Outcome: Goal Ongoing Patient educated on safety. Verbalizes understanding. Call light within reach and functioning. Personal effects within reach. High fall risk bundle in place. Problem: Pain Goal: Management of pain Outcome: Goal Ongoing Pain assessment completed. Patient explained pain management regimen and patient verbalizes understanding. * Care Plan - Sri Karimi RN - 04/06/2018 2:22 AM CDT Problem: Falls, High Risk of Goal: Absence of falls-Adult Patient Outcome: Goal Ongoing Fall bundle in place, patient calls for help appropriately. Patient up to bedside commode with minimal assist Problem: Pain Goal: Management of pain Outcome: Goal Ongoing Patient reported some abdominal cramping that resolved with rest. No further complaints for this nurse at this time. Problem: Self-Care Deficit Goal: Maximize ADL functioning Outcome: Goal Ongoing Patient needs encouragement to perform ADL's often stating that she needs assistance with mobility while demonstrating that she is capable of doing activity with just verbal reinforcement. Will continue to encourage patient to be as independent as able with personal care to work on strength. * Case Mgmt DC Plan - Vivian Wilson - 04/05/2018 3:20 PM CDT Case Management Progress NoteNAME:Lucrecia Fields :1955 AGE: 62 y.o. ADMISSION DATE: 03/25/2018 DAYS ADMITTED: LOS: 11 days Todays Date: 04/05/2018 Plan *switch from lasix gtt to PO lasix *diures *home on warfarin Interventions ? Support Support: Pt/Family Updates re:POC or DC Plan, Patient Education ? Info or Referral ? Discharge Planning Discharge Planning: Other (INR lab draws) *This RN CM called [facility] in [place] (phone: [phone]) to see if they would be able to check her INR when they do her blood draws. Kaylyn RN at [facility] stated the patient is a radha case and needs to reapply as she expires 04/06/18. She stated that once the patient reapplies that it will not be a problem checking her INR when her blood is drawn. *Kaylyn RN sent patient's H&P and labs for this hospital stay (phone: fax: [phone]) *Patient informed to reapply for radha next time she goes in for blood draws. Patient in agreement to do this. *PCP Carla Wilson sent patient's H&P and labs from this hospital stay. MD Wilson will not follow INR. MD Hector stated she will follow patient's INR. ? Medication Needs Medication Needs: Medication Assistance Resources in the Community ? Financial ? Legal ? Other Disposition ? Expected Discharge Date Expected Discharge Date: 04/05/18 ? Transportation Does the patient need discharge transport arranged?: No Transportation Name, Phone and Availability #1: Bill () [phone] Does the patient use Medicaid Transportation?: No ? Discharge Disposition Durable Medical Equipment No service has been selected for the patient. [facility] Destination No service has been selected for the patient. Home Care No service has been selected for the patient. [facility] Dialysis/Infusion No service has been selected for the patient. Vivian Wilson RN, BSN, MSN Integrated Nursing Poultry Service TechnicianDecision Science Analyst [phone] M-F 8-5 pm * Care Plan - Tracie Titus RN - 04/05/2018 12:31 AM CDT Problem: Discharge Planning Goal: Participation in plan of care Outcome: Goal Ongoing Pt updated on POC for diuresing and bridging to warfarin. Pt denies any questions at this time. Will continue to update as plan progresses. Problem: Falls, High Risk of Goal: Absence of falls-Adult Patient Outcome: Goal Ongoing Fall bundle in place. Bed alarm set, call light within reach. Pt educated on fall risk, calling out appropriately. Will continue to monitor. Problem: Pain Goal: Management of pain Outcome: Goal Ongoing Patient controlling chronic back pain with tramadol. Patient denies any pain at this time. Will continue to monitor. * Patient Education - Corrine Li - 04/04/2018 10:08 AM CDT Pharmacy Warfarin Teaching Lucrecia Fields was provided with both verbal and written drug information about warfarin. Discussion with the patient included: the medication regimen, dosing, monitoring, possible adverse effects, food/drug interactions to be aware of and OTC/herbal medication use. Emphasis was placed on the importance of medication compliance. The patient was also encouraged to contact the pharmacist with any further questions. Corrine Li Clinical Labor Relations Manager 04/04/2018 * Care Plan - Sunshine Skaggs RN - 04/03/2018 3:52 PM CDT Problem: Discharge Planning Goal: Participation in plan of care Outcome: Goal Ongoing Patient updated regarding POC. Denies any further questions at this time regarding POC. * Care Plan - Wilfrido Marquez RN - 04/02/2018 6:44 AM CDT Problem: Discharge Planning Goal: Participation in plan of care Outcome: Goal Ongoing Pt. verbally refuses teaching and stated, "I just want to go home, nobody should have to go through this." Problem: Falls, High Risk of Goal: Absence of falls-Adult Patient Outcome: Goal Ongoing Pt. has fall bundle in place, personal items placed within reach and pt. demonstrated correct use of call light. * Case Mgmt DC Plan - Alesha Guerra - 04/01/2018 1:58 PM CDT Case Management Progress NoteNAME:Lucrecia Fields :1955 AGE: 62 y.o. ADMISSION DATE: 03/25/2018 DAYS ADMITTED: LOS: 7 days Todays Date: 04/01/2018 Plan Pt to continue inpt CICU care. Pt anticipated to d/c to home with family assist when medically stable, likely early next week. PT/OT consulted. Interventions ? Support Support: Pt/Family Updates re:POC or DC Plan, Patient Education ? Info or Referral ? Discharge Planning ? Medication Needs Medication Needs: Medication Assistance Resources in the Community SW attempted to meet with pt to discuss Pradaxa PAP and obtain information and signature on application, pt currently experiencing discomfort and requested SW leave room. SW to f/u at a later time. Pt discussed with team in huddle, no longer planning for antiarrythmic and now planning for Coumadin instead of Pradaxa at this time for anticoagulation. Pt anticipated to d/c next week. ? Financial ? Legal ? Other Disposition ? Expected Discharge Date Expected Discharge Date: 04/03/18 ? Transportation Does the patient need discharge transport arranged?: No Transportation Name, Phone and Availability #1: Bill (oli) [phone] Does the patient use Medicaid Transportation?: No ? Next Level of Care (Acute Psych discharges only) ? Discharge Disposition Durable Medical Equipment No service has been selected for the patient. Destination No service has been selected for the patient. Home Care No service has been selected for the patient. Dialysis/Infusion No service has been selected for the patient. Alesha Guerra [facility] p. [phone] * Response Teams - Cristal Montalvo RN - 04/01/2018 9:39 AM CDT Code Blue Team Progress Note Date: 04/01/2018 Time: 9:39 AM Patient: Lucrecia Fields Attending: Deepak Miner MD Service: Cardiology-1st Round/CCU- [id number] Admission Date: 03/25/2018 LOS: 7 days A Code/Rapid Response Timeline Event Report has been created for this patient on 04-01-18 at 0917 The lead provider for this event was Dr Miner. Pt transferred to CICU at this time. Cristal Montalvo RN * Care Plan - Elena Arciniega RN - 04/01/2018 2:27 AM CDT Problem: Discharge Planning Goal: Participation in plan of care Outcome: Goal Ongoing Pt updated and informed on current plan of care. Pt denies any questions at this time. Will continue to monitor. Goal: Knowledge regarding plan of care Outcome: Goal Ongoing Pt updated and informed on current plan of care. Pt denies any questions at this time. Will continue to monitor. Problem: Falls, High Risk of Goal: Absence of falls-Adult Patient Outcome: Goal Ongoing Fall bundle in place. Bed in low and locked position. Pt educated to use call light before getting out of bed. Problem: Pain Goal: Management of pain Outcome: Goal Ongoing Pt does not complain of pain this shift. Goal: Knowledge of pain management Outcome: Goal Ongoing Pt informed on what pain medications are available and educated on non- pharmacological pain interventions. Problem: Respiratory Impairment (Non-Ventilated Patient) Goal: Effective gas exchange Outcome: Goal Ongoing Pt on 4L O2 * Case Mgmt DC Plan - Vivian Wilson - 03/31/2018 4:08 PM CDT Case Management Progress NoteNAME:Lucrecia Fields :1955 AGE: 62 y.o. ADMISSION DATE: 03/25/2018 DAYS ADMITTED: LOS: 6 days Todays Date: 03/31/2018 Plan *possible discharge 04/02/18 *chest tube pulled today *start anticoagulation tomorrow *TODD and cardioversion 04/02/18 Interventions ? Support Support: Pt/Family Updates re:POC or DC Plan, Patient Education ? Info or Referral ? Discharge Planning ? Medication Needs Medication Needs: Medication Assistance Resources in the Community *PT/OT recommending " Home with family assist, Home with Home Health" *Patient advised that since she has no health insurance this RN CM was unable to arrange home health. Patient and spouse stated they will be fine. Patient stated that her and daughter Inocencia are available to help her at home. *This RN CM discussed the patient not having home health with the SHUN Eduardo who did the patient's assessment. Alesha agreed that she felt the patient's family would be supportive. ? Financial ? Legal ? Other Disposition ? Expected Discharge Date Expected Discharge Date: 04/03/18 ? Transportation Does the patient need discharge transport arranged?: No Transportation Name, Phone and Availability #1: Bill () [phone] Does the patient use Medicaid Transportation?: No ? Discharge Disposition Durable Medical Equipment No service has been selected for the patient. [facility] Dest[facility] No service has been selected for the patient. Home Care No service has been selected for the patient. [facility] Dialysis/Infusion No service has been selected for the patient. Vivian Wilson RN, BSN, MSN Integrated Nursing Poultry Service TechnicianDecision Science Analyst [phone] M-F 8-5 pm * Case Mgmt DC Plan - Alesha Guerra - 03/31/2018 3:22 PM CDT Case Management Progress NoteNAME:Lucrecia Fields :1955 AGE: 62 y.o. ADMISSION DATE: 03/25/2018 DAYS ADMITTED: LOS: 6 days Todays Date: 03/31/2018 Plan Pt anticipated to d/c to home when medically stable Interventions ? Support ? Info or Referral ? Discharge Planning ? Medication Needs Medication Needs: Medication Assistance Resources in the Community Pt discussed in huddle with team, discussed anti-coagulation - coumadin vs Pradaxa. CM to f/u on assistance for Pradaxa. SW located 30 day free supply card for Pradaxa and confirmed with [employer] program. Per Sarita with [facility], PAP is through [employer] who can be unpredictable on application/assistance response time and will reject and send application back to pt if all documents are not received. VIJAY updated [facility] Katie Addendum- VIJAY updated Dr. Miner who plans to proceed with Pradaxa for anti-coagulation SW assisting with obtaining Pradaxa 30 day free supply card and with completing Pradaxa PAP application ? Financial ? Legal ? Other Disposition ? Expected Discharge Date Expected Discharge Date: 04/03/18 ? Transportation Does the patient need discharge transport arranged?: No Transportation Name, Phone and Availability #1: Jose () [phone] Does the patient use Medicaid Transportation?: No ? Next Level of Care (Acute Psych discharges only) ? Discharge Disposition Durable Medical Equipment No service has been selected for the patient. Destination No service has been selected for the patient. Home Care No service has been selected for the patient. [facility] D[facility]/Infusion No service has been selected for the patient. Alesha Guerra, [facility] p. [phone] * Care Plan - Erendira Howell RN - 03/31/2018 1:42 PM CDT Problem: Discharge Planning Goal: Participation in plan of care Outcome: Goal Ongoing Pt updated on POC. Pt educated on medications given. Pt denies further questions at this time. Will continue to monitor/update pt. Problem: Falls, High Risk of Goal: Absence of falls-Adult Patient Outcome: Goal Ongoing Fall risk bundle in place. Pt educated how to use call light system. Bed in lowest position, call light within reach. Problem: Pain Goal: Management of pain Outcome: Goal Ongoing Pt educated to alert nursing staff when in pain. Will continue to monitor pt. Problem: Respiratory Impairment (Non-Ventilated Patient) Goal: Effective gas exchange Outcome: Goal Ongoing Pt on 4L high flow NC. SpO2 WNL. Pt breathing labored. Problem: Self-Care Deficit Goal: Maximize ADL functioning Outcome: Goal Ongoing Encouraging independence with ADLs. * Care Plan - Erendira Howell RN - 03/30/2018 6:32 PM CDT Problem: Discharge Planning Goal: Participation in plan of care Outcome: Goal Ongoing Pt updated on POC. Pt educated on medications given. Pt denies further questions at this time. Will continue to monitor/update pt. Problem: Falls, High Risk of Goal: Absence of falls-Adult Patient Outcome: Goal Ongoing Fall risk bundle in place. Pt educated how to use call light system. Bed in lowest position, call light within reach. Problem: Pain Goal: Management of pain Outcome: Goal Ongoing Pt educated to alert nursing staff when in pain. Will continue to monitor pt. Problem: Respiratory Impairment (Non-Ventilated Patient) Goal: Effective gas exchange Outcome: Goal Ongoing RN attempting to titrate pt off O2. Problem: Self-Care Deficit Goal: Maximize ADL functioning Outcome: Goal Ongoing Encouraging independence with ADLs. * Case Mgmt DC Plan - Alesha Guerra - 03/30/2018 3:22 PM CDT Case Management Progress NoteNAME:Lucrecia Fields :1955 AGE: 62 y.o. ADMISSION DATE: 03/25/2018 DAYS ADMITTED: LOS: 5 days Todays Date: 03/30/2018 Plan Pt anticipated to d/c to home when medically stable Interventions ? Support ? Info or Referral ? Discharge Planning Pt discussed in huddle with team. Pt started on diltiazem - per team low cost medication. Anticipate initiation of antiarrhythmic, SW discussed with team need for low cost option as pt does not have insurance coverage currently - pt applying for Medicaid. PT recommending home with assist; and HH. OT recommending home with family assist, home with HH. ? Medication Needs ? Financial ? Legal ? Other Disposition ? Expected Discharge Date Expected Discharge Date: 04/02/18 ? Transportation Does the patient need discharge transport arranged?: No Transportation Name, Phone and Availability #1: Bill () [phone] Does the patient use Medicaid Transportation?: No ? Next Level of Care (Acute Psych discharges only) ? Discharge Disposition Durable Medical Equipment No service has been selected for the patient. Destination No service has been selected for the patient. Home Care No service has been selected for the patient. Dialysis/Infusion No service has been selected for the patient. Alesha Guerra [facility] p. [phone] * Care Plan - Sri Karimi RN - 03/29/2018 12:28 AM CDT Problem: Discharge Planning Goal: Knowledge regarding plan of care Outcome: Goal Ongoing Plan of care reviewed with patient this shift with no further questions for this nurse at this time. Problem: Falls, High Risk of Goal: Absence of falls-Adult Patient Outcome: Goal Ongoing Fall bundle in place, patient calls for assistance as needed. Problem: Pain Goal: Knowledge of pain management Outcome: Goal Ongoing Pain goals discussed with patient, prn meds given as needed. Discussed alternative pain management in conjunction with medication such as reposition and deep breathing. Patient verbalized understanding and stated pain was tolerable throughout shift. Patient is still hoping chest tube to be removed to help with pain. * Case Mgmt DC Plan - Alesha Guerra - 03/26/2018 1:05 PM CDT Case Management Admission AssessmentNAME:Lucrecia Fields :1955 AGE: 62 y.o. ADMISSION DATE: 03/25/2018 DAYS ADMITTED: LOS: 1 day Todays Date: 03/26/2018 Source of Information: Pt's Jose (pt off unit for chest tube placement) Plan Plan: CM Assessment, Assist PRN with SW/NCM Services, Discharge Planning for Home Anticipated Plan for left chest tube placement. CTS and GI consulted. Pt anticipated to d/c to home when medically stable. Per chart, pt "is a 62 y.o. female, the patient has a past medical history of Acquired hypothyroidism; Arthritis; Back pain; Bleeding disorder (HCC); Coronary artery disease; Diabetes mellitus (HCC); Hypertension; Stomach disorder ; and Vision decreased. presenting with shortness of breath, dizziness/ lightheadedness, chills, nausea, lower extremity swelling and palpitations." Patient Address/Phone [address] [facility] [id number] (home) Emergency Contact Extended Emergency Contact Information Primary Emergency Contact: Jose Fields [facility] Mobile Relation: Spouse Secondary Emergency Contact: Inocencia Matson [facility] Mobile Relation: Daughter Healthcare Directive Healthcare Directive: No, patient does not have a healthcare directive Would patient like to fill out a (a new) Healthcare Directive?: No, patient declined Psych Advance Directive (Psych unit only): No, patient does not have a Psych Advance Directive Blank copy of DPOA in pt's room to review, SW provided this SW's contact information to contact if pt wishes to complete. Transportation Does the patient need discharge transport arranged?: No Transportation Name, Phone and Availability #1: Jose () [phone] Does the patient use Medicaid Transportation?: No Pt's states he drives her to appointments Expected Discharge Date Expected Discharge Date: 03/29/18 Living Situation Prior to Admission ? Living Arrangements Type of Residence: Home, independent Living Arrangements: Spouse/significant other How many levels in the residence?: 1 Can patient live on one level if needed?: Yes Does residence have entry and/or side stairs?: No (ramp) Assistance needed prior to admit or anticipated on discharge: No Who provides assistance or could if needed?: possibly pt's Bill or dtr Inocencia Are they in good health?: Unknown Can support system provide 24/7 care if needed?: Maybe ? Level of Function Prior level of function: Independent ? Cognitive Abilities Cognitive Abilities: Continue to Assess (SW spoke to pt's - pt off unit ) Pt's denies concerns with d/c to home at this time. Financial Resources ? Coverage Primary Insurance: No insurance - Currently applying for Medicaid Secondary Insurance: No insurance Additional Coverage: None (Pt's reports pt gets assistance with medications at a clinic in [place] - unable to recall name. Pt's confirmed pt has been able to get all of her medications.) VIJAY discussed with team in [facility], currently only anticipate PO amoxicillin to be added at d/c. Per chart, pt received medication voucher at d/c on 02/27/18. ? Source of Income Source Of Income: SSDI ($1600/month) ? Financial Assistance Needed? Yes, pt currently applying for Medicaid. VIJAY contacted [facility] and received update from [facility] who states they obtained pt's signatures on Medicaid application yesterday and are now awaiting bank statements prior to submitting application. VIJAY discussed with pt's who is aware of need to mail in bank statements. Psychosocial Needs ? Mental Health Mental Health History: No (Pt's denies) ? Substance Use History Substance Use History Screen: No (Pt's denies) ? Other N/A Current/Previous Services ? PCP Carla Wilson, , Dr. Mina (Cardiology) [phone] ? Pharmacy [facility] - [place], [place] - [address] [address] [facility] [address] [facility] ([facility] [address] [place] [address] [facility] [id number] ? Durable Medical Equipment Durable Medical Equipment at home: None ? Home Health Receiving home health: No ? Hemodialysis or Peritoneal Dialysis Undergoing hemodialysis or peritoneal dialysis: No ? Tube/Enteral Feeds Receive tube/enteral feeds: No ? Infusion Receive infusions: No ? Private Duty Private duty help used: No ? Home and Community Based Services Home and community based services: No ? Keanu Colunga White: N/A ? Hospice Hospice: No ? Outpatient Therapy PT: No OT: No IGNITER CAPPER: No ? Intermediate Facility/Retirement SNF: No NH: No ? Inpatient Rehab IPR: No ? Long-Term Acute Care Hospital LTACH: No ? Acute Hospital Stay Acute Hospital Stay: Yes Was patient's stay within the last 30 days?: Yes When did patient receive care?: 02/27/18 Name of hospital: [facility] Readmission Code Group: 5. Medical Plan of Care - Treatment or Possible Complication 5. Medical Plan of Care - Treatment or Possible Complication: 5d. Possible complication of care Related or Unrelated?: Related Alesha Guerra [facility] p. [phone] * Procedures (Immed Post or Bedside) - Ty Urrutia MD - 03/26/2018 12:12 PM CDT Immediate Post Procedure Note Date: 03/26/2018 Attending Physician: Chauncey Menjivar MD Performing Provider: Ty Urrutia MD Consent: Consent obtained from patient. Time out performed: Consent obtained, correct patient verified, correct procedure verified, correct site verified, patient marked as necessary. Pre/Post Procedure Diagnosis: left pleural effusion Indications: left pleural effusion Anesthesia: Local 10 mL 1% lidocaine without epinephrine with IV sedation 4mg versed and 100 mcg fentanyl Procedure(s): US guided left chest tube placement Findings: clear yellow pleural fluid Estimated Blood Loss: None/Negligible Specimen(s) Removed/Disposition: fluid sent to lab Complications: None Patient Tolerated Procedure: Well Post-Procedure Condition: stable Ty Urrutia MD * Care Plan - Irina De La Garza RN - 03/26/2018 12:23 AM CDT Problem: Discharge Planning Goal: Participation in plan of care Outcome: Goal Ongoing Pt compliant with care plan. All questions addressed. No further questions at this time. Problem: Falls, High Risk of Goal: Absence of falls-Adult Patient Outcome: Goal Ongoing Fall bundle in place. Bed in low locked position with bed alarm on. Call light within reach. Problem: Pain Goal: Management of pain Outcome: Goal Ongoing Pt able to use 0-10 pain scale. Assessment as documented. * ED Notes - Lauren Wolf RN - 03/25/2018 6:05 PM CDT 1805: Room [place] [phone] (Ready). Please call THOMPSON Caro @ [phone] for report. * Advanced Care Planning/Resuscitation Status - Shashi Chan MD - 2017 6:01 PM CDT Advance Care Planning/Resuscitation Status Conversation Individuals present for advance care planning conversation: resident/fellow physician, patient and other: (surrogate decision maker) Pertinent details of conversation (including direct quotes from patient or surrogate): "Do it all" "I am too young to not try everything." Outcome of conversation: Full Code Documents completed as a result of this conversation: None Other documents present, which outline patient/surrogate wishes: None * ED Provider Notes - Jarad Felix MD - 03/25/2018 4:22 PM CDT Lucrecia Fields is a 62 y.o. female. Chief Complaint: Chief Complaint Patient presents with Shortness of Breath CABG x4 1 month ago, sob, in and out of afib and flutter History of Present Illness: Ms. Fields is a 62-year-old woman with history of diabetes, paroxysmal atrial fibrillation, coronary artery disease status post four-vessel CABG 1 month ago, complicated by postoperative atrial tachycardia, who presents with concern for tachycardia and shortness of breath. Patient states that she was seen yesterday for a follow-up visit. States that she was in atrial flutter at the time and was told to stay for admission, but wanted to go home. States that per her doctor's direction she increased her metoprolol stating she took to 100 metoprolol yesterday and 1 100 metoprolol this morning. States that she continues to have shortness of breath, lightheadedness, and occasional chest pains. States she is not sure if chest pain is due to her recent surgery or from her heart. She also notes she is having increased left leg pain and swelling her grafting site. States that it feels just like her previous DVT, but that she had a negative ultrasound at an outside ED last week. Review of Systems: Review of Systems Constitutional: Negative for chills and fever. HENT: Negative for congestion, rhinorrhea, sneezing and sore throat. Eyes: Negative for photophobia and visual disturbance. Respiratory: Positive for chest tightness and shortness of breath. Negative for cough. Cardiovascular: Positive for chest pain. Negative for palpitations and leg swelling. Gastrointestinal: Negative for abdominal pain, constipation, diarrhea, nausea and vomiting. Endocrine: Negative. Genitourinary: Negative for difficulty urinating, dysuria and frequency. Musculoskeletal: Negative for arthralgias and myalgias. Skin: Negative. Neurological: Positive for light-headedness. Negative for weakness, numbness and headaches. Psychiatric/Behavioral: Negative. All other systems reviewed and are negative. Allergies: Diltiazem; Sulfa (sulfonamide antibiotics); Duricef [cefadroxil]; Pravastatin; and Simvastatin Past Medical History: Past Medical History: Diagnosis Date Acquired hypothyroidism Arthritis Back pain Bleeding disorder (HCC) Coronary artery disease Diabetes mellitus (HCC) Type II Hypertension Stomach disorder Vision decreased Past Surgical History: Past Surgical History: Procedure Laterality Date HX HEART CATHETERIZATION 2017 CORONARY STENT PLACEMENT 2017 CORONARY ARTERY BYPASS GRAFT N/A 02/16/2018 CORONARY ARTERY BYPASS WITH ARTERIAL GRAFT - 4 GRAFTS (Internal Mammary Artery and Endovascular Vein [facility]) performed by Lance Pal [facility] at [facility] HX MAZE N/A 02/16/2018 MAZE PROCEDURE performed by Lance Pal MD at [facility] ANKLE SURGERY Left ankle reconstruction COLONOSCOPY HX KNEE ARTHROSCOPY Left HX TONSIL AND ADENOIDECTOMY TUBAL LIGATION UPPER GASTROINTESTINAL ENDOSCOPY Pertinent medical/surgical history reviewed Social History: Social History Substance Use Topics Smoking status: Former Smoker Packs/day: 2.00 Years: 10.00 Types: Cigarettes Quit date: 09/28/1981 Smokeless tobacco: Never Used Alcohol use Yes Comment: Seldom History Drug Use No Family History: Family History Problem Relation Age of Onset [...] Grandmother Diabetes Paternal Grandmother Cancer Paternal Grandfather Vitals: ED Vitals Date and Time T BP P RR SPO2P SPO2 User 03/25/18 1433 36.4 C (97.6 F) 122/76 99 18 PER MINUTE -- 100 % HS Physical Exam: Physical Exam Constitutional: She is oriented to person, place, and time. She appears well- developed and well-nourished. No distress. HENT: Head: Normocephalic and atraumatic. Eyes: Pupils are equal, round, and reactive to light. EOM are normal. Neck: Normal range of motion. Cardiovascular: Normal heart sounds and intact distal pulses. An irregularly irregular rhythm present. Tachycardia present. No murmur heard. Pulmonary/Chest: Effort normal. No respiratory distress. She has decreased breath sounds in the left lower field. She has no wheezes. She has no rhonchi. Abdominal: Soft. Bowel sounds are normal. She exhibits no distension. There is no tenderness. Musculoskeletal: Normal range of motion. She exhibits no edema. Left lower leg: She exhibits tenderness. Legs: LLE swelling with tenderness medial to recent graft Neurological: She is alert and oriented to person, place, and time. No cranial nerve deficit. Skin: Skin is warm and dry. Capillary refill takes less than 2 seconds. She is not diaphoretic. Psychiatric: She has a normal mood and affect. Nursing note and vitals reviewed. Laboratory Results: Results for orders placed or performed during the hospital encounter of (from the past 24 hour(s)) TROPONIN-I Result Value Ref Range Troponin-I 0.01 0.0 - 0.05 NG/ML COMPREHENSIVE METABOLIC PANEL Result Value Ref Range Sodium 136 (L) 137 - 147 MMOL/L Potassium 4.4 3.5 - 5.1 MMOL/L Chloride 105 98 - 110 MMOL/L Glucose 226 (H) 70 - 100 MG/DL Blood Urea Nitrogen 27 (H) 7 - 25 MG/DL Creatinine 1.49 (H) 0.4 - 1.00 MG/DL Calcium 9.3 8.5 - 10.6 MG/DL Total Protein 7.0 6.0 - 8.0 G/DL Total Bilirubin 0.5 0.3 - 1.2 MG/DL Albumin 3.2 (L) 3.5 - 5.0 G/DL Alk Phosphatase 75 25 - 110 U/L AST (SGOT) 17 7 - 40 U/L CO2 25 21 - 30 MMOL/L ALT (SGPT) 5 (L) 7 - 56 U/L Anion Gap 6 3 - 12 eGFR Non 36 (L) >60 mL/min eGFR 43 (L) >60 mL/min CBC AND DIFF Result Value Ref Range White Blood Cells 5.6 4.5 - 11.0 K/UL RBC 2.54 (L) 4.0 - 5.0 M/UL Hemoglobin 7.9 (L) 12.0 - 15.0 GM/DL Hematocrit 24.7 (L) 36 - 45 % MCV 96.9 80 - 100 FL MCH 30.8 26 - 34 PG MCHC 31.8 (L) 32.0 - 36.0 G/DL RDW 18.5 (H) 11 - 15 % Platelet Count 158 150 - 400 K/UL MPV 8.0 7 - 11 FL Neutrophils 71 41 - 77 % Lymphocytes 13 (L) 24 - 44 % Monocytes 10 4 - 12 % Eosinophils 6 (H) 0 - 5 % Basophils 0 0 - 2 % Absolute Neutrophil Count 4.00 1.8 - 7.0 K/UL Absolute Lymph Count 0.70 (L) 1.0 - 4.8 K/UL Absolute Monocyte Count 0.50 0 - 0.80 K/UL Absolute Eosinophil Count 0.40 0 - 0.45 K/UL Absolute Basophil Count 0.00 0 - 0.20 K/UL POC GLUCOSE Result Value Ref Range Glucose, POC 210 (H) 70 - 100 MG/DL POC GLUCOSE Result Value Ref Range Glucose, POC 177 (H) 70 - 100 MG/DL POC GLUCOSE Result Value Ref Range Glucose, POC 233 (H) 70 - 100 MG/DL Radiology Interpretation: US DOPPLER VENOUS W EXTRM LEFT Final Result 1. No evidence of acute femoral/popliteal DVT in the left lower extremity. 2. Mild calf subcutaneous edema. By my electronic signature, I attest that I have personally reviewed the images for this examination and formulated the interpretations and opinions expressed in this report Finalized by Terrence Hobbs M.D. on 03/25/2018 8:58 PM. Dictated by Chapincito Mares M.D. on 03/25/2018 8:[address] HEAD WO CONTRAST Final Result Motion degraded exam without definite acute intracranial hemorrhage or mass effect. Finalized by Terrence Hobbs M.D. on 03/25/2018 7:19 PM. Dictated by Terrence Hobbs M.D. on 03/25/2018 7:16 PM. CHEST SINGLE VIEW Final Result 1. Stable moderate to large left pleural effusion. 2. Unchanged left mid and lower lung zone opacities likely associated atelectasis. Finalized by Steve Kang M.D. on 03/25/2018 4:29 PM. Dictated by Steve Kang M.D. on 03/25/2018 4:28 PM. CHEST IMMEDIATE POST PROCEDURE INSP/EXP (Results Pending) EKG: Atrial fibrillation, HR 103, QTc 466, No STEMI ED Course: Ms. Fields is a 62-year-old woman with history of diabetes, paroxysmal atrial fibrillation, coronary artery disease status post four-vessel CABG 1 month ago, complicated by postoperative atrial tachycardia, who presents with concern for tachycardia and shortness of breath. On initial assessment patient is alert and in no apparent distress. Patient is hemodynamically stable and afebrile. Physical exam is noted above Differential includes but is not limited to atrial tachycardia, pericardial effusion, pleural effusion, DVT electrolyte abnormality, pneumonia WorkUp: labs, EKG, CXR, cardiology consult On reassessment, pt exam is unchanged. LLE US pending. CXR shows large pleural effusion, noted on prior CXRs. Cardiology to admit for management of symptomatic atrial fibrillation in the post-op setting. Patient expressed understanding and is agreeable to plan. Patient admitted to cardiology service. MDM Reviewed: previous chart, nursing note and vitals Reviewed previous: labs, ECG and x-ray Interpretation: labs, ECG and x-ray Consults: cardiology Facility Administered Meds: No current facility-administered medications on file as of 03/25/2018. Clinical Impression: Final diagnoses: None Disposition/Follow up No follow-up provider specified. Medications: New Prescriptions No medications on file Procedure Notes: Procedures Attestation / Supervision: Yosi Garcia MD Attestation / Supervision Note concerning Lucrecia Fields: I personally performed the dempsey portions of the E/M visit, discussed case with resident and concur with resident documentation of history, physical exam, assessment, and treatment plan unless otherwise noted. Jarad Felix MD * ED Notes - Vania Queen RN - 03/25/2018 3:41 PM CDT 62 yo female presents to the ED with c/o SOA. Pt reports hx of CABG 1 month ago , afib, CHF. Pt state she's had symptoms of SOA since CABG. States symptoms worsened over passed week. Reports 7 lb weight gain over past week. States she was at a follow up appt yesterday and physician wanted to admit; states she was unable to yesterday. Pt A&Ox4. Awaiting MD alvarado. Belongings: shirt, pants Belongings at bedside. in this encounter Plan of Treatment Order Schedule Name Priority Associated Diagnoses Expected: 04/21/2018 (Approximate), Expires: 04/05/2019 BASIC METABOLIC PANEL STAT Chronic gastrointestinal bleeding as of this encounter Procedures Comments Procedure Name Priority Date/Time Associated Diagnosis ECG-SCAN 04/24/2018 5:40 PM EMERGENCY COMMUNICATIONS OFFICER TELEMETRY STRIPS-SCAN 04/16/2018 12:49 PM CDT ECG-SCAN 04/13/2018 5:02 PM CDT TELEMETRY STRIPS-SCAN 04/09/2018 3:24 PM CDT POC GLUCOSE 04/08/2018 5:04 PM CDT TODD W/O CONTRAST & W/ 3D Routine 04/08/2018 ON CART 4:06 PM CDT POC GLUCOSE 04/08/2018 12:41 PM CDT POC GLUCOSE 04/08/2018 11:56 AM CDT POC GLUCOSE 04/08/2018 8:37 AM CDT PTT (APTT) Routine 04/08/2018 5:00 AM CDT PROTIME INR (PT) Routine 04/08/2018 5:00 AM CDT CBC Routine 04/08/2018 5:00 AM CDT MAGNESIUM Routine 04/08/2018 5:00 AM CDT BASIC METABOLIC PANEL Routine 04/08/2018 5:00 AM CDT POC GLUCOSE 04/07/2018 9:00 PM CDT POC GLUCOSE 04/07/2018 5:59 PM CDT POC GLUCOSE 04/07/2018 2:29 PM CDT COLONOSCOPY 04/07/2018 12:07 PM CDT COLONOSCOPY 04/07/2018 Hematochezia 11:50 AM CDT POC GLUCOSE 04/07/2018 7:56 AM CDT CHEST SINGLE VIEW Routine 04/07/2018 6:43 AM CDT PTT (APTT) Routine 04/07/2018 4:25 AM CDT PROTIME INR (PT) Routine 04/07/2018 4:25 AM CDT CBC Routine 04/07/2018 4:25 AM CDT MAGNESIUM Routine 04/07/2018 4:25 AM CDT BASIC METABOLIC PANEL Routine 04/07/2018 4:25 AM CDT POC GLUCOSE 04/06/2018 9:06 PM CDT POC GLUCOSE 04/06/2018 6:04 PM CDT POC GLUCOSE 04/06/2018 11:56 AM CDT POC GLUCOSE 04/06/2018 8:49 AM CDT CHEST SINGLE VIEW Routine 04/06/2018 6:30 AM CDT IRON + BINDING CAPACITY + Add on 04/06/2018 %SAT+ FERRITIN 3:00 AM CDT PTT (APTT) Routine 04/06/2018 3:00 AM CDT PROTIME INR (PT) Routine 04/06/2018 3:00 AM CDT CBC Routine 04/06/2018 3:00 AM CDT MAGNESIUM Add on 04/06/2018 3:00 AM CDT FOLATE, SERUM Add on 04/06/2018 3:00 AM CDT VITAMIN B12 Add on 04/06/2018 3:00 AM CDT BASIC METABOLIC PANEL [...] SINGLE VIEW Routine 04/05/2018 6:11 AM CDT PTT (APTT) Routine 04/05/2018 4:24 AM CDT PROTIME INR (PT) Routine 04/05/2018 4:24 AM CDT CBC Routine 04/05/2018 4:24 AM CDT MAGNESIUM Add on 04/05/2018 4:24 AM CDT BASIC METABOLIC PANEL Routine 04/05/2018 4:24 AM CDT POC GLUCOSE 04/04/2018 8:15 PM CDT POC GLUCOSE 04/04/2018 1:22 PM CDT POC GLUCOSE 04/04/2018 6:53 AM CDT CHEST SINGLE VIEW Routine 04/04/2018 5:11 AM CDT PTT (APTT) STAT 04/04/2018 4:34 AM CDT PROTIME INR (PT) Routine 04/04/2018 4:34 AM CDT CBC Routine 04/04/2018 4:34 AM CDT MAGNESIUM Routine 04/04/2018 4:34 AM CDT BASIC METABOLIC PANEL Routine 04/04/2018 4:34 AM CDT POC GLUCOSE 04/03/2018 8:55 PM CDT HEMOGLOBIN & HEMATOCRIT STAT 04/03/2018 8:11 PM CDT POC GLUCOSE 04/03/2018 7:53 PM CDT POC GLUCOSE 04/03/2018 4:54 PM CDT POC GLUCOSE 04/03/2018 11:46 AM CDT POC GLUCOSE 04/03/2018 6:24 AM CDT CHEST SINGLE VIEW Routine 04/03/2018 6:05 AM CDT PTT (APTT) STAT 04/03/2018 4:24 AM CDT CBC Routine 04/03/2018 4:24 AM CDT MAGNESIUM Routine 04/03/2018 4:24 AM CDT BASIC METABOLIC PANEL Routine 04/03/2018 4:24 AM CDT PTT (APTT) STAT 04/02/2018 9:04 PM CDT POC GLUCOSE 04/02/2018 8:52 PM CDT POC GLUCOSE 04/02/2018 5:15 PM CDT PTT (APTT) STAT 04/02/2018 2:00 PM CDT POC GLUCOSE 04/02/2018 11:38 AM CDT POC GLUCOSE 04/02/2018 6:57 AM CDT PTT (APTT) STAT 04/02/2018 5:20 AM CDT CBC Routine 04/02/2018 5:20 AM CDT MAGNESIUM Routine 04/02/2018 5:20 AM CDT BASIC METABOLIC PANEL Routine 04/02/2018 5:20 AM CDT CHEST SINGLE [...] PERIPHERAL Routine 04/01/2018 VENOUS 11:55 AM CDT UA REFLEX CULTURE LABEL Routine 04/01/2018 11:40 AM CDT URINALYSIS MICROSCOPIC Routine 04/01/2018 REFLEX TO CULTURE 11:40 AM CDT URINALYSIS DIPSTICK Routine 04/01/2018 REFLEX TO CULTURE 11:40 AM CDT UREA NITROGEN-URINE Routine 04/01/2018 RANDOM 11:40 AM CDT SODIUM-URINE RANDOM Routine 04/01/2018 11:40 AM CDT CREATININE-URINE RANDOM Routine 04/01/2018 11:40 AM CDT EOSINOPHIL STAIN Routine 04/01/2018 11:40 AM CDT CONSULT IV THERAPY TEAM STAT 04/01/2018 9:34 AM CDT POC GLUCOSE 04/01/2018 8:25 AM CDT CBC AND DIFF Routine 04/01/2018 7:50 AM CDT URIC ACID Routine 04/01/2018 7:50 AM CDT MAGNESIUM Routine 04/01/2018 7:50 AM CDT CREATINE KINASE-CPK Routine 04/01/2018 7:50 AM CDT BASIC METABOLIC PANEL Routine 04/01/2018 7:50 AM CDT CHEST SINGLE VIEW Routine 04/01/2018 6:20 AM CDT BLOOD GASES, ARTERIAL Routine 03/31/2018 11:57 PM CDT CULTURE-BLOOD STAT 03/31/2018 W/SENSITIVITY 9:58 PM CDT CULTURE-BLOOD STAT 03/31/2018 W/SENSITIVITY 9:50 PM CDT LACTIC ACID (BG - RAPID STAT 03/31/2018 LACTATE) 9:50 PM CDT CONSULT IV THERAPY TEAM [...] GASES, ARTERIAL STAT 03/31/2018 4:45 AM CDT CBC AND DIFF Routine 03/31/2018 3:50 AM CDT COMPREHENSIVE METABOLIC Routine 03/31/2018 PANEL 3:50 AM CDT POC GLUCOSE 03/30/2018 9:31 PM CDT POC GLUCOSE 03/30/2018 5:25 PM CDT US RENAL BLADDER LTD Routine 03/30/2018 4:21 PM CDT POC GLUCOSE 03/30/2018 12:48 PM CDT UREA NITROGEN-URINE Routine 03/30/2018 RANDOM 12:31 PM CDT OSMOLALITY-URINE RANDOM Routine 03/30/2018 12:31 PM CDT CREATININE-URINE RANDOM Routine 03/30/2018 12:31 PM CDT UA REFLEX CULTURE LABEL Routine 03/30/2018 12:30 PM CDT URINALYSIS MICROSCOPIC Routine 03/30/2018 REFLEX TO CULTURE 12:30 PM CDT URINALYSIS DIPSTICK Routine 03/30/2018 REFLEX TO CULTURE 12:30 PM CDT TELEMETRY STRIPS-SCAN 03/30/2018 11:43 AM CDT POC GLUCOSE 03/30/2018 9:02 AM CDT CBC AND DIFF Routine 03/30/2018 4:10 AM CDT COMPREHENSIVE METABOLIC Routine 03/30/2018 PANEL 4:10 AM CDT CHEST SINGLE VIEW SUNG 03/30/2018 3:08 AM CDT CONSULT IV THERAPY TEAM STAT 03/29/2018 9:23 PM CDT POC GLUCOSE 03/29/2018 8:42 PM CDT POC GLUCOSE 03/29/2018 5:07 PM CDT ECG 12-LEAD Routine 03/29/2018 4:26 PM CDT UREA NITROGEN-URINE Routine 03/29/2018 RANDOM 4:02 PM CDT SODIUM-URINE RANDOM Routine 03/29/2018 4:02 PM CDT OSMOLALITY-URINE RANDOM Routine 03/29/2018 4:02 PM CDT CREATININE-URINE RANDOM Routine 03/29/2018 4:02 PM CDT POC GLUCOSE 03/29/2018 11:33 AM CDT POC GLUCOSE 03/29/2018 10:32 AM CDT ESOPHAGOGASTRODUODENOSCOP 03/29/2018 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) POC GLUCOSE 03/29/2018 8:37 AM CDT EGD REPORT 03/29/2018 7:42 AM CDT CBC AND DIFF Routine 03/29/2018 5:00 AM CDT COMPREHENSIVE METABOLIC Routine 03/29/2018 PANEL 5:00 AM CDT CONSULT IV THERAPY TEAM Routine 03/29/2018 2:01 AM CDT POC GLUCOSE 03/28/2018 9:23 PM CDT POC GLUCOSE 03/28/2018 5:14 PM CDT POC GLUCOSE 03/28/2018 1:13 PM CDT POC GLUCOSE 03/28/2018 9:24 AM CDT CBC AND DIFF Routine 03/28/2018 4:50 AM CDT COMPREHENSIVE METABOLIC Routine 03/28/2018 PANEL 4:50 AM CDT CONSULT IV THERAPY TEAM Routine 03/28/2018 4:00 AM CDT POC GLUCOSE 03/27/2018 9:23 PM CDT POC GLUCOSE 03/27/2018 6:31 PM CDT ECG-SCAN 03/27/2018 11:05 AM CDT POC GLUCOSE 03/27/2018 9:59 AM CDT POC GLUCOSE 03/27/2018 7:37 AM CDT CBC AND DIFF Routine 03/27/2018 5:30 AM CDT COMPREHENSIVE METABOLIC Routine 03/27/2018 PANEL 5:30 AM CDT CONSULT IV THERAPY TEAM [...] CDT POC GLUCOSE 03/26/2018 7:57 AM CDT TROPONIN-I Routine 03/26/2018 2:02 AM CDT CBC AND DIFF 03/26/2018 2:02 AM CDT COMPREHENSIVE METABOLIC 03/26/2018 PANEL 2:02 AM CDT CONSULT IV THERAPY TEAM Routine 03/26/2018 1:30 AM CDT POC GLUCOSE 03/25/2018 9:25 PM CDT CULTURE-BLOOD 03/25/2018 W/SENSITIVITY 8:58 PM CDT CULTURE-BLOOD STAT 03/25/2018 W/SENSITIVITY 8:53 PM CDT LACTIC ACID (BG - RAPID STAT 03/25/2018 LACTATE) 8:53 PM CDT TROPONIN-I Routine 03/25/2018 8:53 PM CDT TYPE & CROSSMATCH Routine 03/25/2018 8:53 PM CDT PHOSPHORUS Routine 03/25/2018 8:53 PM CDT MAGNESIUM Routine 03/25/2018 8:53 PM CDT CONSULT IV THERAPY TEAM Routine 03/25/2018 8:[address] HEAD WO CONTRAST STAT 03/25/2018 6:23 PM CDT US DOPPLER VENOUS W EXTRM STAT 03/25/2018 LEFT 6:17 PM CDT BNP POC ER 03/25/2018 4:16 PM CDT POC TROPONIN 03/25/2018 4:09 PM CDT CBC AND DIFF STAT 03/25/2018 4:07 PM CDT PHOSPHORUS STAT 03/25/2018 4:07 PM CDT MAGNESIUM STAT 03/25/2018 4:07 PM CDT COMPREHENSIVE METABOLIC STAT 03/25/2018 PANEL 4:07 PM CDT CHEST SINGLE VIEW STAT 03/25/2018 3:50 PM CDT ECG 12-LEAD STAT 03/25/2018 3:40 PM CDT ECG 12-LEAD STAT 03/25/2018 2:35 PM CDT ECG-SCAN 03/25/2018 2:30 PM CDT in this encounter Results * ECG-SCAN (04/24/2018 5:40 PM EMERGENCY COMMUNICATIONS OFFICER) Narrative Performed At Ordered by an unspecified provider. * TELEMETRY STRIPS-SCAN (04/16/2018 12:49 PM CDT) Narrative Performed At Ordered by an unspecified provider. * ECG-SCAN (04/13/2018 5:02 PM CDT) Narrative Performed At Ordered by an unspecified provider. * TELEMETRY STRIPS-SCAN (04/09/2018 3:24 PM CDT) Narrative Performed At Ordered by an unspecified provider. * POC GLUCOSE (04/08/2018 5:04 PM CDT) Glucose, POC 91 70 - 100 MG/DL MAIN LAB Performing Organization Address City/State/Zipcode Phone Number MAIN LAB [address] [place] [address] * TRANSESOPHAGEAL ECHOCARDIOGRAM (04/08/2018 4:06 PM CDT) BSA 2.19 m2 OTHER OUTSIDE LAB CV ECHO PV ELEVATOR ADJUSTER Marisa RN, Anesthesia Team OTHER OUTSIDE LAB Interp Only Loader Magazine Grinder Charu Golden OTHER OUTSIDE LAB Cardiology Ultrasound Siemens [id number] OTHER OUTSIDE LAB Machine TV rest pulmonary artery 30 mmHg OTHER OUTSIDE LAB pressure AV peak velocity 1.3 m/s OTHER OUTSIDE LAB ECHO EF 55 % OTHER OUTSIDE LAB Vn Nyquist 0.26 m/s OTHER OUTSIDE LAB Radius 0.5 cm OTHER OUTSIDE LAB Mr max zahra 4.4 m/s OTHER OUTSIDE LAB MR PISA [...] from the prior study. Performing Organization Address City/State/Zipcode Phone Number OTHER OUTSIDE LAB * POC GLUCOSE (04/08/2018 12:41 PM CDT) Glucose, POC 136 (H) 70 - 100 MG/DL MAIN LAB Performing Organization Address City/State/[employer] Phone Number MAIN LAB [address] [place] [phone] * POC GLUCOSE (04/08/2018 11:56 AM CDT) Glucose, POC 147 (H) 70 - 100 MG/DL [facility] Performing Organization Address City/[facility] Phone Number [facility] [address] [place] [address] * POC GLUCOSE (04/08/2018 8:37 AM CDT) Glucose, POC 216 (H) 70 - 100 MG/DL [facility] Performing Organization Address City/[facility] Phone Number [facility] [address] [place] [address] * MAGNESIUM (04/08/2018 5:00 AM CDT) Magnesium 2.3 1.6 - 2.6 mg/dL [facility] Specimen Blood Performing Organization Address [facility] Phone Number [facility] [address] [place] [phone] * PTT (APTT) (04/08/2018 5:00 AM CDT) APTT 30.2Comment: NOTE NEW 20.0 - 36.0 SEC [facility] REFERENCE RANGES Specimen Blood Performing Organization Address [facility] Phone Number [facility] [address] [place] [address] * BASIC METABOLIC PANEL (04/08/2018 5:00 AM CDT) Sodium 136 (L) 137 - 147 MMOL/L [...] for questions. Specimen Blood Performing Organization Address City/[facility] Phone Number [facility] [address] [place] [address] * CBC (04/08/2018 5:00 AM CDT) White Blood Cells 4.4 (L) 4.5 - 11.0 K/UL [facility] RBC 2.59 (L) 4.0 - 5.0 M/UL [facility] Hemoglobin 8.1 (L) 12.0 - 15.0 GM/DL [facility] Hematocrit 25.0 (L) 36 - 45 % [facility] MCV 96.6 80 - 100 FL [facility] MCH 31.4 26 - 34 PG [facility] MCHC 32.5 32.0 - 36.0 G/DL [facility] RDW 17.8 (H) 11 - 15 % [facility] Platelet Count 129 (L) 150 - 400 K/UL [facility] MPV 8.8 7 - 11 FL MAIN LAB Specimen Blood Performing Organization Address [facility] Phone Number [facility] [address] [place] [phone] * PROTIME INR (PT) (04/08/2018 5:00 AM CDT) INR 1.6 (H) 0.8 - 1.2 MAIN LAB Specimen Blood Performing Organization Address [facility] Phone Number [facility] [address] [place] [address] * POC GLUCOSE (04/07/2018 9:00 PM CDT) Glucose, POC 157 (H) 70 - 100 MG/DL [facility] Performing Organization Address [facility] Phone Number [facility] [address] [place] [address] * POC GLUCOSE (04/07/2018 5:59 PM CDT) Glucose, POC 261 (H) 70 - 100 MG/DL [facility] Performing Organization Address [facility] Phone Number [facility] [address] [place] [address] * POC GLUCOSE (04/07/2018 2:29 PM CDT) Glucose, POC 141 (H) 70 - 100 MG/DL MAIN LAB Performing Organization Address City/State/Zipcode Phone Number MAIN LAB [address] [place] [address] * COLONOSCOPY (04/07/2018 12:07 PM CDT) Provation Report Patient Name: Donnie CASTILLO OTHER RESULTS Procedure Date: 04/07/2018 12:07 PM CSN: [id number] Date of : 1955 Gender: Female Attending Physician: Skinny Marshall MD Procedure: Colonoscop y Indications: Hematochezia Providers: Skinny Marshall MD (Doctor), Conner Martines MD (Fellow), Mariana Suarez RN (Nurse), Elvia River, Piece Hand (Piece Hand) Referring Physician: Felisa Hector Medications: Monitored Anesthesia Care Complications: No immediate [...] PM Performing Organization Address City/State/Zipcode Phone Number OTHER RESULTS * POC GLUCOSE (04/07/2018 7:56 AM CDT) Glucose, POC 133 (H) 70 - 100 MG/DL [facility] Performing Organization Address City/State/Zipcode Phone Number MAIN LAB [address] [place] [address] * CHEST SINGLE VIEW (04/07/2018 6:43 AM CDT) Impressions Performed At Persistent left pleural effusion [...] on 04/07/2018 8:29 AM. Performing Organization Address [facility] [facility] Phone Number I AM AT RAD RESULTS * MAGNESIUM (04/07/2018 4:25 AM CDT) Magnesium 2.3 1.6 - 2.6 mg/dL I AM AT MAIN LAB Specimen Blood Performing Organization Address [facility] Phone Number I AM AT MAIN LAB [address] [place] [address] * PTT (APTT) (04/07/2018 4:25 AM CDT) APTT 29.1Comment: NOTE NEW 20.0 - 36.0 SEC I AM AT MAIN LAB REFERENCE RANGES Specimen Blood Performing Organization Address [facility] Phone Number I AM AT MAIN LAB [address] [place] [address] * BASIC METABOLIC PANEL (04/07/2018 4:25 AM CDT) Sodium 137 137 - 147 MMOL/L MAIN LAB Potassium 4.3 3.5 - 5.1 MMOL/L MAIN LAB Chloride 93 (L) 98 - 110 MMOL/L MAIN LAB CO2 37 (H) 21 - 30 MMOL/L [facility] MAIN LAB Anion Gap 7 3 - 12 MAIN LAB Glucose 129 (H) 70 - 100 MG/DL MAIN LAB Blood Urea Nitrogen 34 (H) 7 - 25 MG/DL MAIN LAB Creatinine 1.32 (H) 0.4 - 1.00 MG/DL MAIN LAB Calcium 10.1 8.5 - 10.6 MG/DL MAIN LAB eGFR Non 41 (L) >60 mL/min [facility] MAIN LAB Comment: The eGFR is not validated for use in drug dosing adjustments.Continue to use estimated creatinine clearance per dosing reference text.Please contact the Clinical Pharmacist for questions. eGFR 50 (L) >60 mL/min [facility] MAIN LAB Comment: The eGFR is not validated for use in drug dosing adjustments.Continue to use estimated creatinine clearance per dosing reference text.Please contact the Clinical Pharmacist for questions. Specimen Blood Performing Organization Address City/[facility]/Zipcode Phone Number [facility] [address] [place] [address] * CBC (04/07/2018 4:25 AM CDT) White Blood Cells 4.4 (L) 4.5 - 11.0 K/UL [facility] RBC 2.86 (L) 4.0 - 5.0 M/UL [facility] Hemoglobin 9.1 (L) 12.0 - 15.0 GM/DL [facility] Hematocrit 27.5 (L) 36 - 45 % [facility] MCV 96.0 80 - 100 FL [facility] MCH 32.0 26 - 34 PG [facility] MCHC 33.3 32.0 - 36.0 G/DL [facility] RDW 18.2 (H) 11 - 15 % MAIN LAB Platelet Count 130 (L) 150 - 400 K/UL [facility] MPV 8.6 7 - 11 FL [facility] Specimen Blood Performing Organization Address City/[facility]/Zipcode Phone Number [facility] [address] [place] [address] * PROTIME INR (PT) (04/07/2018 4:25 AM CDT) INR 1.6 (H) 0.8 - 1.2 MAIN LAB Specimen Blood Performing Organization Address [facility] Phone Number [facility] MAIN LAB [address] [place] [address] * POC GLUCOSE (04/06/2018 9:06 PM CDT) Glucose, POC 165 (H) 70 - 100 MG/DL [facility] MAIN LAB Performing Organization Address [facility] Phone Number [facility] MAIN LAB [address] [place] [address] * POC GLUCOSE (04/06/2018 6:04 PM CDT) Glucose, POC 273 (H) 70 - 100 MG/DL [facility] MAIN LAB Performing Organization Address [facility] Phone Number MAIN LAB [address] [place] [address] * POC GLUCOSE (04/06/2018 11:56 AM CDT) Glucose, POC 138 (H) 70 - 100 MG/DL [facility] MAIN LAB Performing Organization Address [facility] Phone Number [facility] MAIN LAB [address] [place] [address] * POC GLUCOSE (04/06/2018 8:49 AM CDT) Glucose, POC 150 (H) 70 - 100 MG/DL [facility] MAIN LAB Performing Organization Address [facility] Phone Number MAIN LAB [address] [place] [address] * CHEST SINGLE VIEW (04/06/2018 6:30 AM CDT) Impressions Performed At Stable chest radiograph with redemonstration of left pleural effusion and [facility] RAD RESULTS adjacent left lower lobe atelectasis with mild central pulmonary vascular congestion. Approved by Garrett Puckett MD on 04/06/2018 10:38 AM By my electronic signature, I attest that I have personally reviewed the images for this examination and formulated the interpretations and opinions expressed in this report Finalized by Gabe Waggoner M.D. on 04/06/2018 11:57 AM. Dictated by Garrett Puckett MD on 04/06/2018 9:32 AM. Narrative Performed At CHEST SINGLE VIEW [facility] RAD RESULTS INDICATION: Female, 62 years old. Pleural effusion. COMPARISON STUDY: Portable chest radiograph dated 04/05/2018 FINDINGS: Lungs: Left lower lobe opacity adjacent to left-sided pleural effusion likely representing stable atelectasis. The tracheobronchial tree and hilar structures are normal. Pleura: Unchanged moderate left-sided pleural effusion. No pneumothorax.. Heart and Mediastinum: Prior median sternotomy and CABG. Stable mildly enlarged cardiac silhouette.. There is mild central pulmonary vascular congestion. Bones: The visualized skeletal structures are unremarkable. Procedure Note Interface, Radiant Results - 04/06/2018 12:01 PM CDT CHEST SINGLE VIEW INDICATION: Female, 62 years old. Pleural effusion. COMPARISON STUDY: Portable chest radiograph dated 04/05/2018 FINDINGS: Lungs: Left lower lobe opacity adjacent to left-sided pleural effusion likely representing stable atelectasis. The tracheobronchial tree and hilar structures are normal. Pleura: Unchanged moderate left-sided pleural effusion. No pneumothorax.. Heart and Mediastinum: Prior median sternotomy and CABG. Stable mildly enlarged cardiac silhouette.. There is mild central pulmonary vascular congestion. Bones: The visualized skeletal structures are unremarkable. IMPRESSION Stable chest radiograph with redemonstration of left pleural effusion and adjacent left lower lobe atelectasis with mild central pulmonary vascular congestion. Approved by Garrett Puckett MD on 04/06/2018 10:38 AM By my electronic signature, I attest that I have personally reviewed the images for this examination and formulated the interpretations and opinions expressed in this report Finalized by Gabe Waggoner M.D. on 04/06/2018 11:57 AM. Dictated by Garrett Puckett MD on 04/06/2018 9:32 AM. Performing Organization Address City/[facility] Phone Number RAD RESULTS * MAGNESIUM (04/06/2018 3:00 AM CDT) Magnesium 2.0Comment: SLT HEMOLYSIS 1.6 - 2.6 mg/dL [facility] MAIN LAB Performing Organization Address City/[facility]/Zipcode Phone Number MAIN LAB [address] [place] [address] * IRON + BINDING CAPACITY + %SAT+ FERRITIN (04/06/2018 3:00 AM CDT) Iron 23 (L)Comment: SLT HEMOLYSIS 50 - 160 MCG/DL [facility] MAIN LAB Iron Binding-TIBC 273 270 - 380 MCG/DL [facility] MAIN LAB % Saturation 8 (L) 28 - 42 % [facility] MAIN LAB Ferritin 259 (H) 10 - 200 NG/ML [facility] MAIN LAB Performing Organization Address [facility] Phone Number [facility] MAIN LAB [address] [place] [address] * FOLATE, SERUM (04/06/2018 3:00 AM CDT) Serum Folate >23.4 >3.9 NG/ML [facility] MAIN LAB Comment: SLT HEMOLYSIS NOTE NEW REFERENCE RANGES Performing Organization Address City/[facility] Phone Number [facility] MAIN LAB [address] [place] [address] * VITAMIN B12 (04/06/2018 3:00 AM CDT) Vitamin B12 1,234 (H) 180 - 914 PG/ML [facility] MAIN LAB Performing Organization Address [facility] Phone Number [facility] MAIN LAB [address] [place] [address] * PTT (APTT) (04/06/2018 3:00 AM CDT) APTT 20.4Comment: NOTE NEW 20.0 - 36.0 SEC [facility] MAIN LAB REFERENCE RANGES Specimen Blood Performing Organization Address [facility] Phone Number [facility] MAIN LAB [address] [place] [address] * BASIC METABOLIC PANEL (04/06/2018 3:00 AM CDT) Sodium 135 (L) 137 - 147 MMOL/L [facility] MAIN LAB Potassium 4.3Comment: SLT HEMOLYSIS 3.5 - 5.1 MMOL/L [facility] MAIN LAB Chloride 95 (L) 98 - 110 MMOL/L [facility] MAIN LAB CO2 34 (H) 21 - 30 MMOL/L [facility] MAIN LAB Anion Gap 6 3 - 12 [facility] MAIN LAB Glucose 145 (H) 70 - 100 MG/DL [facility] MAIN LAB Blood Urea Nitrogen 38 (H) 7 - 25 MG/DL [facility] MAIN LAB Creatinine 1.38 (H) 0.4 - 1.00 MG/DL [facility] MAIN LAB Calcium 9.6 8.5 - 10.6 MG/DL [facility] MAIN LAB eGFR Non 39 (L) >60 mL/min [facility] MAIN LAB Comment: The eGFR is not validated for use in drug dosing adjustments.Continue to use estimated creatinine clearance per dosing reference text.Please contact the Clinical Pharmacist for questions. eGFR 47 (L) >60 mL/min [facility] MAIN LAB Comment: The eGFR is not validated for use in drug dosing adjustments.Continue to use estimated creatinine clearance per dosing reference text.Please contact the Clinical Pharmacist for questions. Specimen Blood Performing Organization Address City/[facility]/Zipcode Phone Number MAIN LAB [address] [place] [phone] * CBC (04/06/2018 3:00 AM CDT) White Blood Cells 4.5 4.5 - 11.0 K/UL [facility] MAIN LAB RBC 2.58 (L) 4.0 - 5.0 M/UL [facility] MAIN LAB Hemoglobin 8.2 (L) 12.0 - 15.0 GM/DL [facility] MAIN LAB Hematocrit 24.8 (L) 36 - 45 % [facility] MAIN LAB MCV 96.2 80 - 100 FL [facility] MAIN LAB MCH 32.0 26 - 34 PG [facility] MAIN LAB MCHC 33.2 32.0 - 36.0 G/DL [facility] MAIN LAB RDW 17.2 (H) 11 - 15 % [facility] MAIN LAB Platelet Count 132 (L) 150 - 400 K/UL [facility] MAIN LAB MPV 8.9 7 - 11 FL [facility] MAIN LAB Specimen Blood Performing Organization Address [facility] Phone Number JONATHAN MAIN LAB [address] [place] [phone] * PROTIME INR (PT) (04/06/2018 3:00 AM CDT) INR 1.6 (H) 0.8 - 1.2 MAIN LAB Specimen Blood Performing Organization Address [facility] Phone Number JONATHAN MAIN LAB [address] [place] [address] * CBC (04/05/2018 9:48 PM CDT) White Blood Cells 5.3 4.5 - 11.0 K/UL [facility] MAIN LAB RBC 2.64 (L) 4.0 - 5.0 M/UL [facility] MAIN LAB Hemoglobin 8.3 (L) 12.0 - 15.0 GM/DL [facility] MAIN LAB Hematocrit 25.7 (L) 36 - 45 % [facility] MAIN LAB MCV 97.5 80 - 100 FL [facility] MAIN LAB MCH 31.2 26 - 34 PG [facility] MAIN LAB MCHC 32.0 32.0 - 36.0 G/DL [facility] MAIN LAB RDW 18.4 (H) 11 - 15 % [facility] MAIN LAB Platelet Count 145 (L) 150 - 400 K/UL MAIN LAB MPV 8.0 7 - 11 FL MAIN LAB Specimen Blood Performing Organization Address [facility] Phone Number MAIN LAB [address] [place] [address] * POC GLUCOSE (04/05/2018 9:00 PM CDT) Glucose, POC 185 (H) 70 - 100 MG/DL [facility] MAIN LAB Performing Organization Address [facility] Phone Number [facility] MAIN LAB [address] [place] [address] * POC GLUCOSE (04/05/2018 4:17 PM CDT) Glucose, POC 186 (H) 70 - 100 MG/DL [facility] MAIN LAB Performing Organization Address [facility] Phone Number MAIN LAB [address] [place] [phone] * PTT (APTT) (04/05/2018 2:10 PM CDT) APTT 96.5 (H)Comment: NOTE NEW 20.0 - 36.0 SEC MAIN LAB REFERENCE RANGES Specimen Blood Performing Organization Address [facility] Phone Number MAIN LAB [address] [place] [phone] * CBC (04/05/2018 2:10 PM CDT) White Blood Cells 4.7 4.5 - 11.0 K/UL MAIN LAB RBC 2.59 (L) 4.0 - 5.0 M/UL MAIN LAB Hemoglobin 8.2 (L) 12.0 - 15.0 GM/DL MAIN LAB Hematocrit 25.2 (L) 36 - 45 % MAIN LAB MCV 97.1 80 - 100 FL MAIN LAB MCH 31.8 26 - 34 PG MAIN LAB MCHC 32.7 32.0 - 36.0 G/DL MAIN LAB RDW 18.1 (H) 11 - 15 % MAIN LAB Platelet Count 139 (L) 150 - 400 K/UL MAIN LAB MPV 8.2 7 - 11 FL MAIN LAB Specimen Blood Performing Organization Address [facility] Phone Number MAIN LAB [address] [place] [phone] * POC GLUCOSE (04/05/2018 1:48 PM CDT) Glucose, POC 160 (H) 70 - 100 MG/DL [facility] MAIN LAB Performing Organization Address [facility] Phone Number [facility] MAIN LAB [address] [place] [address] * POC GLUCOSE (04/05/2018 9:03 AM CDT) Glucose, POC 199 (H) 70 - 100 MG/DL [facility] MAIN LAB Performing Organization Address [facility] Phone Number [facility] MAIN LAB [address] [place] [address] * CHEST SINGLE VIEW (04/05/2018 6:11 AM CDT) Impressions Performed At Stable chest radiograph with unchanged perihilar edema, left pleural effusion , [facility] RAD RESULTS left lower lobe partial atelectasis. Approved by Yobany Groves M.D. on 04/05/2018 9:26 AM By my electronic signature, I attest that I have personally reviewed the images for this examination and formulated the interpretations and opinions expressed in this report Finalized by Eddy Hauser M.D. on 04/05/2018 12:51 PM. Dictated by Yobany Groves M.D. on 04/05/2018 8:36 AM. Narrative Performed At CHEST SINGLE VIEW [facility] RAD RESULTS Clinical Indication: Female, 62 years old. Pleural effusion. Comparison: Chest radiograph from the prior day Findings: Eddy Hauser M.D. has personally reviewed these images and formulated the interpretations and opinions expressed in this report. Prior median sternotomy and CABG. Unchanged mildly enlarged cardiac silhouette. Moderate left pleural effusion and adjacent atelectasis. Unchanged perihilar edema. No significant interval change in pulmonary venous congestion and interstitial edema. Unchanged widening of the superior mediastinum. No pneumothorax. Procedure Note Interface, Radiant Results - 04/05/2018 12:55 PM CDT CHEST SINGLE VIEW Clinical Indication: Female, 62 years old. Pleural effusion. Comparison: Chest radiograph from the prior day Findings: Eddy Hauser M.D. has personally reviewed these images and formulated the interpretations and opinions expressed in this report. Prior median sternotomy and CABG. Unchanged mildly enlarged cardiac silhouette. Moderate left pleural effusion and adjacent atelectasis. Unchanged perihilar edema. No significant interval change in pulmonary venous congestion and interstitial edema. Unchanged widening of the superior mediastinum. No pneumothorax. IMPRESSION Stable chest radiograph with unchanged perihilar edema, left pleural effusion, left lower lobe partial atelectasis. Approved by Yobany Groves M.D. on 04/05/2018 9:26 AM By my electronic signature, I attest that I have personally reviewed the images for this examination and formulated the interpretations and opinions expressed in this report Finalized by Eddy Hauser M.D. on 04/05/2018 12:51 PM. Dictated by Yobany Groves M.D. on 04/05/2018 8:36 AM. Performing Organization Address City/[facility]/Zipcode Phone Number RAD RESULTS * MAGNESIUM (04/05/2018 4:24 AM CDT) Magnesium 1.9 1.6 - 2.6 mg/dL MAIN LAB Performing Organization Address [facility] Phone Number MAIN LAB [address] [place] [address] * PTT (APTT) (04/05/2018 4:24 AM CDT) APTT 111.3 (H)Comment: NOTE NEW 20.0 - 36.0 SEC [facility] MAIN LAB REFERENCE RANGES Specimen Blood Performing Organization Address [facility] Phone Number MAIN LAB [address] [place] [address] * BASIC METABOLIC PANEL (04/05/2018 4:24 AM CDT) Sodium 137 137 - 147 MMOL/L [facility] MAIN LAB Potassium 3.4 (L) 3.5 - 5.1 MMOL/L [facility] MAIN LAB Chloride 95 (L) 98 - 110 MMOL/L [facility] MAIN LAB CO2 35 (H) 21 - 30 MMOL/L [facility] MAIN LAB Anion Gap 7 3 - 12 [facility] MAIN LAB Glucose 172 (H) 70 - 100 MG/DL [facility] MAIN LAB Blood Urea Nitrogen 44 (H) 7 - 25 MG/DL [facility] MAIN LAB Creatinine 1.28 (H) 0.4 - 1.00 MG/DL [facility] MAIN LAB Calcium 9.3 8.5 - 10.6 MG/DL [facility] MAIN LAB eGFR Non 43 (L) >60 mL/min [facility] MAIN LAB Comment: The eGFR is not validated for use in drug dosing adjustments.Continue to use estimated creatinine clearance per dosing reference text.Please contact the Clinical Pharmacist for questions. eGFR 51 (L) >60 mL/min [facility] MAIN LAB Comment: The eGFR is not validated for use in drug dosing adjustments.Continue to use estimated creatinine clearance per dosing reference text.Please contact the Clinical Pharmacist for questions. Specimen Blood Performing Organization Address City/[facility]/Zipcode Phone Number MAIN LAB [address] [place] [address] * CBC (04/05/2018 4:24 AM CDT) White Blood Cells 4.3 (L) 4.5 - 11.0 K/UL [facility] MAIN LAB RBC 2.54 (L) 4.0 - 5.0 M/UL [facility] MAIN LAB Hemoglobin 8.0 (L) 12.0 - 15.0 GM/DL [facility] MAIN LAB Hematocrit 24.9 (L) 36 - 45 % [facility] MAIN LAB MCV 98.3 80 - 100 FL MAIN LAB MCH 31.7 26 - 34 PG [facility] MAIN LAB MCHC 32.3 32.0 - 36.0 G/DL [facility] MAIN LAB RDW 18.7 (H) 11 - 15 % [facility] MAIN LAB Platelet Count 128 (L) 150 - 400 K/UL [facility] MAIN LAB MPV 8.2 7 - 11 FL MAIN LAB Specimen Blood Performing Organization Address City/[facility] Phone Number [facility] MAIN LAB [address] [place] [phone] * PROTIME INR (PT) (04/05/2018 4:24 AM CDT) INR 1.5 (H) 0.8 - 1.2 MAIN LAB Specimen Blood Performing Organization Address City/[facility] Phone Number MAIN LAB [address] [place] [address] * POC GLUCOSE (04/04/2018 8:15 PM CDT) Glucose, POC 242 (H) 70 - 100 MG/DL [facility] MAIN LAB Performing Organization Address City/[facility] Phone Number [facility] MAIN LAB [address] [place] [address] * POC GLUCOSE (04/04/2018 1:22 PM CDT) Glucose, POC 150 (H) 70 - 100 MG/DL [facility] MAIN LAB Performing Organization Address City/[facility] Phone Number MAIN LAB [address] [place] [address] * POC GLUCOSE (04/04/2018 6:53 AM CDT) Glucose, POC 138 (H) 70 - 100 MG/DL MAIN LAB Performing Organization Address City/[facility] Phone Number MAIN LAB [address] [place] [address] * CHEST SINGLE VIEW (04/04/2018 5:11 AM CDT) Impressions Performed At 1. Unchanged mild cardiomegaly with persistent widening of the superior [facility] RAD RESULTS mediastinum and pulmonary venous congestion and edema. 2. Unchanged moderate size left pleural effusion with adjacent atelectasis. By my electronic signature, I attest that I have personally reviewed the images for this examination and formulated the interpretations and opinions expressed in this report Finalized by Joao Davenport M.D. on 04/04/2018 10:10 AM. Dictated by Francis Last M.D. on 04/04/2018 9:11 AM. Narrative Performed At CHEST SINGLE VIEW [facility] RAD RESULTS Clinical Indication: Female, 62 years old. Pleural effusion Comparison: Chest prior day Findings: Evaluation is limited by grid artifact. Prior median sternotomy and CABG. Cardiac silhouette is mildly enlarged. Unchanged moderate left pleural effusion with adjacent atelectasis. Unchanged pulmonary venous congestion and interstitial edema. Unchanged widening of the superior mediastinum. No pneumothorax. Procedure Note Interface, Radiant Results - 04/04/2018 10:13 AM CDT CHEST SINGLE VIEW Clinical Indication: Female, 62 years old. Pleural effusion Comparison: Chest prior day Findings: Evaluation is limited by grid artifact. Prior median sternotomy and CABG. Cardiac silhouette is mildly enlarged. Unchanged moderate left pleural effusion with adjacent atelectasis. Unchanged pulmonary venous congestion and interstitial edema. Unchanged widening of the superior mediastinum. No pneumothorax. IMPRESSION 1. Unchanged mild cardiomegaly with persistent widening of the superior mediastinum and pulmonary venous congestion and edema. 2. Unchanged moderate size left pleural effusion with adjacent atelectasis. By my electronic signature, I attest that I have personally reviewed the images for this examination and formulated the interpretations and opinions expressed in this report Finalized by Joao Davenport M.D. on 04/04/2018 10:10 AM. Dictated by Francis Last M.D. on 04/04/2018 9:11 AM. Performing Organization Address City/[facility]/Zipcode Phone Number JONATHAN RAD RESULTS * MAGNESIUM (04/04/2018 4:34 AM CDT) Magnesium 1.7 1.6 - 2.6 mg/dL MAIN LAB Specimen Blood Performing Organization Address City/[facility] Phone Number [facility] MAIN LAB [address] [place] [address] * BASIC METABOLIC PANEL (04/04/2018 4:34 AM CDT) Sodium 137 137 - 147 MMOL/L [facility] MAIN LAB Potassium 3.4 (L) 3.5 - 5.1 MMOL/L [facility] MAIN LAB Chloride 98 98 - 110 MMOL/L [facility] MAIN LAB CO2 33 (H) 21 - 30 MMOL/L [facility] MAIN LAB Anion Gap 6 3 - 12 [facility] MAIN LAB Glucose 133 (H) 70 - 100 MG/DL [facility] MAIN LAB Blood Urea Nitrogen 50 (H) 7 - 25 MG/DL [facility] MAIN LAB Creatinine 1.50 (H) 0.4 - 1.00 MG/DL [facility] MAIN LAB Calcium 9.4 8.5 - 10.6 MG/DL [facility] MAIN LAB eGFR Non 35 (L) >60 mL/min [facility] MAIN LAB Comment: The eGFR is not validated for use in drug dosing adjustments.Continue to use estimated creatinine clearance per dosing reference text.Please contact the Clinical Pharmacist for questions. eGFR 43 (L) >60 mL/min [facility] MAIN LAB Comment: The eGFR is not validated for use in drug dosing adjustments.Continue to use estimated creatinine clearance per dosing reference text.Please contact the Clinical Pharmacist for questions. Specimen Blood Performing Organization Address [facility] Phone Number JONATHAN MAIN LAB [address] [place] [address] * CBC (04/04/2018 4:34 AM CDT) White Blood Cells 4.6 4.5 - 11.0 K/UL [facility] MAIN LAB RBC 2.55 (L) 4.0 - 5.0 M/UL [facility] MAIN LAB Hemoglobin 8.1 (L) 12.0 - 15.0 GM/DL [facility] MAIN LAB Hematocrit 24.9 (L) 36 - 45 % [facility] MAIN LAB MCV 97.6 80 - 100 FL [facility] MAIN LAB MCH 31.8 26 - 34 PG [facility] MAIN LAB MCHC 32.6 32.0 - 36.0 G/DL [facility] MAIN LAB RDW 18.7 (H) 11 - 15 % [facility] MAIN LAB Platelet Count 146 (L) 150 - 400 K/UL [facility] MAIN LAB MPV 8.1 7 - 11 FL MAIN LAB Specimen Blood Performing Organization Address City/[facility] Phone Number MAIN LAB [address] [place] [address] * PTT (APTT) (04/04/2018 4:34 AM CDT) APTT 105.4 (H)Comment: NOTE NEW 20.0 - 36.0 SEC [facility] MAIN LAB REFERENCE RANGES Specimen Blood Performing Organization Address City/[facility] Phone Number MAIN LAB [address] [place] [phone] * PROTIME INR (PT) (04/04/2018 4:34 AM CDT) INR 1.4 (H) 0.8 - 1.2 MAIN LAB Specimen Blood Performing Organization Address City/[facility] Phone Number MAIN LAB [address] [place] [address] * POC GLUCOSE (04/03/2018 8:55 PM CDT) Glucose, POC 133 (H) 70 - 100 MG/DL MAIN LAB Performing Organization Address City/[facility] Phone Number MAIN LAB [address] [place] [address] * HEMOGLOBIN & HEMATOCRIT (04/03/2018 8:11 PM CDT) Hemoglobin 8.1 (L) 12.0 - 15.0 GM/DL MAIN LAB Hematocrit 24.1 (L) 36 - 45 % MAIN LAB Specimen Blood Performing Organization Address City/[facility] Phone Number MAIN LAB [address] [place] [address] * POC GLUCOSE (04/03/2018 7:53 PM CDT) Glucose, POC 127 (H) 70 - 100 MG/DL [facility] MAIN LAB Performing Organization Address City/[facility] Phone Number MAIN LAB [address] [place] [address] * POC GLUCOSE (04/03/2018 4:54 PM CDT) Glucose, POC 180 (H) 70 - 100 MG/DL [facility] MAIN LAB Performing Organization Address City/State/Zipcode Phone Number [facility] MAIN LAB [address] [place] [address] * POC GLUCOSE (04/03/2018 11:46 AM CDT) Glucose, POC 185 (H) 70 - 100 MG/DL [facility] MAIN LAB Performing Organization Address [facility] Phone Number [facility] MAIN LAB [address] [place] [address] * POC GLUCOSE (04/03/2018 6:24 AM CDT) Glucose, POC 212 (H) 70 - 100 MG/DL [facility] MAIN LAB Performing Organization Address [facility] [employer] Phone Number [facility] [address] [place] [address] * CHEST SINGLE VIEW (04/03/2018 6:05 AM CDT) Impressions Performed At Impression: No significant change in appearance of chest with stable [facility] RAD RESULTS postoperative mediastinal configuration, cardiomegaly, left pleural effusion with associated left lung consolidation as described. Stable mild central venous congestion. Finalized by Joao Davenport M.D. on 04/03/2018 9:58 AM. Dictated by Joao Davenport M.D. on 04/03/2018 9:55 AM. Narrative Performed At Portable AP upright chest x-ray [facility] RAD RESULTS Clinical indication: Pleural effusion Comparison is made to the study of one day prior. There is unchanged cardiomegaly and postoperative changes of prior median sternotomy. The moderate to large left pleural effusion is unchanged in size and there is extensive left lower lobe and lingular consolidation. There is no obvious pneumothorax. Central venous congestion appears unchanged. No new pulmonary infiltrates are identified. Procedure Note Interface, Radiant Results - 04/03/2018 10:01 AM CDT Portable AP upright chest x-ray Clinical indication: Pleural effusion Comparison is made to the study of one day prior. There is unchanged cardiomegaly and postoperative changes of prior median sternotomy. The moderate to large left pleural effusion is unchanged in size and there is extensive left lower lobe and lingular consolidation. There is no obvious pneumothorax. Central venous congestion appears unchanged. No new pulmonary infiltrates are identified. IMPRESSION Impression: No significant change in appearance of chest with stable postoperative mediastinal configuration, cardiomegaly, left pleural effusion with associated left lung consolidation as described. Stable mild central venous congestion. Finalized by Joao Davenport M.D. on 04/03/2018 9:58 AM. Dictated by Joao Davenport M.D. on 04/03/2018 9:55 AM. Performing Organization Address [facility] Phone Number RAD RESULTS * PTT (APTT) (04/03/2018 4:24 AM CDT) APTT 96.4 (H)Comment: NOTE NEW 20.0 - 36.0 SEC [facility] REFERENCE RANGES Specimen Blood Performing Organization Address [facility] Phone Number MAIN LAB [address] [place] [address] * MAGNESIUM (04/03/2018 4:24 AM CDT) Magnesium 1.8 1.6 - 2.6 mg/dL [facility] Specimen Blood Performing Organization Address [facility] Phone Number MAIN LAB [address] [place] [address] * BASIC METABOLIC PANEL (04/03/2018 4:24 AM CDT) Sodium 133 (L) 137 - 147 MMOL/L [facility] Potassium 3.5 3.5 - 5.1 MMOL/L [facility] Chloride 97 (L) 98 - 110 MMOL/L [facility] CO2 28 21 - 30 MMOL/L [facility] Anion Gap 8 3 - 12 [facility] Glucose 179 (H) 70 - 100 MG/DL [facility] Blood Urea Nitrogen 54 (H) 7 - 25 MG/DL [facility] Creatinine 1.91 (H) 0.4 - 1.00 MG/DL [facility] Calcium 9.1 8.5 - 10.6 MG/DL [facility] eGFR Non 27 (L) >60 mL/min [facility] Comment: The eGFR is not validated for use in drug dosing adjustments.Continue to use estimated creatinine clearance per dosing reference text.Please contact the Clinical Pharmacist for questions. eGFR 32 (L) >60 mL/min [facility] Comment: The eGFR is not validated for use in drug dosing adjustments.Continue to use estimated creatinine clearance per dosing reference text.Please contact the Clinical Pharmacist for questions. Specimen Blood Performing Organization Address [facility] Phone Number MAIN LAB [address] [place] [address] * CBC (04/03/2018 4:24 AM CDT) White Blood Cells 5.1 4.5 - 11.0 K/UL MAIN LAB RBC 2.53 (L) 4.0 - 5.0 M/UL MAIN LAB Hemoglobin 8.0 (L) 12.0 - 15.0 GM/DL MAIN LAB Hematocrit 24.6 (L) 36 - 45 % MAIN LAB MCV 97.2 80 - 100 FL MAIN LAB MCH 31.6 26 - 34 PG MAIN LAB MCHC 32.5 32.0 - 36.0 G/DL MAIN LAB RDW 18.0 (H) 11 - 15 % MAIN LAB Platelet Count 158 150 - 400 K/UL MAIN LAB MPV 8.4 7 - 11 FL MAIN LAB Specimen Blood Performing Organization Address City/[facility] Phone Number MAIN LAB [address] [place] [address] * PTT (APTT) (04/02/2018 9:04 PM CDT) APTT 85.7 (H)Comment: NOTE NEW 20.0 - 36.0 SEC MAIN LAB REFERENCE RANGES Specimen Blood Performing Organization Address City/[facility] Phone Number MAIN LAB [address] [place] [address] * POC GLUCOSE (04/02/2018 8:52 PM CDT) Glucose, POC 192 (H) 70 - 100 MG/DL MAIN LAB Performing Organization Address [facility] Phone Number MAIN LAB [address] [place] [address] * POC GLUCOSE (04/02/2018 5:15 PM CDT) Glucose, POC 170 (H) 70 - 100 MG/DL MAIN LAB Performing Organization Address [facility] Phone Number MAIN LAB [address] [place] [address] * PTT (APTT) (04/02/2018 2:00 PM CDT) APTT 88.1 (H)Comment: NOTE NEW 20.0 - 36.0 SEC MAIN LAB REFERENCE RANGES Specimen Blood Performing Organization Address City/[facility] Phone Number MAIN LAB [address] [place] [address] * POC GLUCOSE (04/02/2018 11:38 AM CDT) Glucose, POC 189 (H) 70 - 100 MG/DL [facility] Performing Organization Address [facility] Phone Number [facility] [address] [place] [address] * POC GLUCOSE (04/02/2018 6:57 AM CDT) Glucose, POC 174 (H) 70 - 100 MG/DL [facility] Performing Organization Address [facility] Phone Number [facility] [address] [place] [address] * PTT (APTT) (04/02/2018 5:20 AM CDT) APTT 126.3 (H)Comment: NOTE NEW 20.0 - 36.0 SEC [facility] REFERENCE RANGES Specimen Blood Performing Organization Address [facility] Phone Number [facility] [address] [place] [phone] * MAGNESIUM (04/02/2018 5:20 AM CDT) Magnesium 1.7 1.6 - 2.6 mg/dL [facility] Specimen Blood Performing Organization Address [facility] Phone Number [facility] [address] [place] [address] * BASIC METABOLIC PANEL (04/02/2018 5:20 AM CDT) Sodium 132 (L) 137 - 147 MMOL/L [facility] Potassium 3.7 3.5 - 5.1 MMOL/L [facility] Chloride 97 (L) 98 - 110 MMOL/L [facility] CO2 26 21 - 30 MMOL/L [facility] Anion Gap 9 3 - 12 [facility] Glucose 164 (H) 70 - 100 MG/DL [facility] Blood Urea Nitrogen 56 (H) 7 - 25 MG/DL [facility] Creatinine 2.42 (H) 0.4 - 1.00 MG/DL [facility] Calcium 9.1 8.5 - 10.6 MG/DL [facility] eGFR Non 20 (L) >60 mL/min [facility] Comment: The eGFR is not validated for use in drug dosing adjustments.Continue to use estimated creatinine clearance per dosing reference text.Please contact the Clinical Pharmacist for questions. eGFR 25 (L) >60 mL/min [facility] Comment: The eGFR is not validated for use in drug dosing adjustments.Continue to use estimated creatinine clearance per dosing reference text.Please contact the Clinical Pharmacist for questions. Specimen Blood Performing Organization Address [facility]/Zipcode Phone Number [facility] [address] [place] [phone] * CBC (04/02/2018 5:20 AM CDT) White Blood Cells 7.3 4.5 - 11.0 K/UL [facility] RBC 2.63 (L) 4.0 - 5.0 M/UL [facility] Hemoglobin 8.3 (L) 12.0 - 15.0 GM/DL [facility] Hematocrit 25.6 (L) 36 - 45 % [facility] MCV 97.4 80 - 100 FL [facility] MCH 31.7 26 - 34 PG [facility] MCHC 32.5 32.0 - 36.0 G/DL [facility] RDW 18.3 (H) 11 - 15 % [facility] Platelet Count 193 150 - 400 K/UL [facility] MPV 8.3 7 - 11 FL MAIN LAB Specimen Blood Performing Organization Address [facility] Phone Number MAIN LAB [address] [place] [phone] * CHEST SINGLE VIEW (04/02/2018 4:54 AM CDT) Impressions Performed At 1.Persistent generalized cardiomegaly and persistent widening of the [facility] RAD RESULTS superior mediastinum with pulmonary vascular congestion and edema. 2.Persistent left pleural effusion and left basilar consolidation likely atelectasis. Approved by Esau Hurst M.D. on 04/02/2018 10:09 AM By my electronic signature, I attest that I have personally reviewed the images for this examination and formulated the interpretations and opinions expressed in this report Finalized by Eddy Hauser M.D. on 04/02/2018 12:24 PM. Dictated by Esau Hrust M.D. on 04/02/2018 8:49 AM. Narrative Performed At CHEST SINGLE VIEW [facility] RAD RESULTS Clinical Indication: Female, 62 years old. Pleural effusion. Comparison: Chest radiograph 04/01/2018. Findings: Prior median sternotomy CABG. Persistent generalized cardiomegaly and widening of the superior mediastinum. Persistent pulmonary vascular congestion and edema. Persistent left pleural effusion and adjacent consolidation. No pneumothorax. Procedure Note Interface, Radiant Results - 04/02/2018 12:27 PM CDT CHEST SINGLE VIEW Clinical Indication: Female, 62 years old. Pleural effusion. Comparison: Chest radiograph 04/01/2018. Findings: Prior median sternotomy CABG. Persistent generalized cardiomegaly and widening of the superior mediastinum. Persistent pulmonary vascular congestion and edema. Persistent left pleural effusion and adjacent consolidation. No pneumothorax. IMPRESSION 1. Persistent generalized cardiomegaly and persistent widening of the superior mediastinum with pulmonary vascular congestion and edema. 2. Persistent left pleural effusion and left basilar consolidation likely atelectasis. Approved by Esau Hurst M.D. on 04/02/2018 10:09 AM By my electronic signature, I attest that I have personally reviewed the images for this examination and formulated the interpretations and opinions expressed in this report Finalized by Eddy Hauser M.D. on 04/02/2018 12:24 PM. Dictated by Esau Hurst M.D. on 04/02/2018 8:49 AM. Performing Organization Address City/State/Zipcode Phone Number [facility] RAD RESULTS * CBC AND DIFF (04/01/2018 11:24 PM CDT) White Blood Cells 6.3 4.5 - 11.0 K/UL [facility] RBC 2.62 (L) 4.0 - [...] MAIN LAB Specimen Blood Performing Organization Address City/[facility]/Zipcode Phone Number [facility] [address] [place] [address] * PTT (APTT) (04/01/2018 11:24 PM CDT) APTT 26.4Comment: NOTE NEW 20.0 - 36.0 SEC [facility] REFERENCE RANGES Specimen Blood Performing Organization Address City/[facility]/Zipcode Phone Number [facility] [address] [place] [address] * POC GLUCOSE (04/01/2018 9:12 PM CDT) Glucose, POC 193 (H) 70 - 100 MG/DL [facility] Performing Organization Address [facility] Phone Number [facility] [address] [place] [address] * CT HEAD WO CONTRAST (04/01/2018 7:51 PM CDT) Impressions Performed At No acute intracranial hemorrhage [...] on 04/01/2018 9:49 PM. Performing Organization Address City/[facility] Phone Number RAD RESULTS * BASIC METABOLIC PANEL (04/01/2018 7:27 PM CDT) Sodium 132 (L) 137 - 147 MMOL/L [facility] Potassium 4.4 3.5 - 5.1 MMOL/L [facility] Chloride 98 98 - 110 MMOL/L [facility] CO2 26 21 - 30 MMOL/L [facility] Anion Gap 8 3 - 12 [facility] Glucose 150 (H) 70 - 100 MG/DL [facility] Blood Urea Nitrogen 53 (H) 7 - 25 MG/DL [facility] Creatinine 2.94 (H) 0.4 - 1.00 MG/DL [facility] Calcium 9.3 8.5 - 10.6 MG/DL [facility] eGFR Non 16 (L) >60 mL/min [facility] Comment: The eGFR is not validated for use in drug dosing adjustments.Continue to use estimated creatinine clearance per dosing reference text.Please contact the Clinical Pharmacist for questions. eGFR 20 (L) >60 mL/min [facility] Comment: The eGFR is not validated for use in drug dosing adjustments.Continue to use estimated creatinine clearance per dosing reference text.Please contact the Clinical Pharmacist for questions. Specimen Blood Performing Organization Address [facility] Phone Number [employer] [facility] [address] [address] * POC GLUCOSE (04/01/2018 5:57 PM CDT) Glucose, POC 143 (H) 70 - 100 MG/DL [facility] Performing Organization Address [facility] Phone Number [facility] [address] [place] [address] * POC GLUCOSE (04/01/2018 12:13 PM CDT) Glucose, POC 140 (H) 70 - 100 MG/DL [facility] Performing Organization Address [facility] Phone Number [facility] [address] [place] [address] * BLOOD GASES, PERIPHERAL VENOUS (04/01/2018 11:55 AM CDT) pH-Venous 7.24 (L) 7.30 - 7.40 MAIN LAB PCO2-Venous 65 (H) 36 - 50 MMHG [facility] PO2-Venous 44 33 - 48 MMHG MAIN LAB Base Deficit-Venous 0.9 MMOL/L [facility] O2 Sat-Venous 74.1 (H) 55 - 71 % MAIN LAB Nrumjxfyjlg-QSC-Cbh 23.4 MMOL/L MAIN LAB Specimen Blood, venous - Blood Performing Organization Address [facility] Phone Number MAIN LAB [address] [place] [address] * EOSINOPHIL STAIN (04/01/2018 11:40 AM CDT) Battery Name EOSINOPHIL STAIN MAIN LAB Specimen Description URINE MAIN LAB Special Requests NONE MAIN LAB Ahuja's Stain NO EOSINOPHILS SEEN [facility] Report Status FINAL [facility] 04/02/2018 Specimen Urine Performing Organization Address [facility] Phone Number MAIN LAB [address] [place] [address] * CREATININE-URINE RANDOM (04/01/2018 11:40 AM CDT) Creatinine, Random 209 MG/DL [facility] Specimen Urine - Urine Performing Organization Address City/[facility] Phone Number MA[facility] LAB [address] [place] [address] * UREA NITROGEN-URINE RANDOM (04/01/2018 11:40 AM CDT) Urea Nitrogen 294 MG/DL [facility] Specimen Urine - Urine Performing Organization Address [facility] Phone Number [facility] [address] [place] [address] * SODIUM-URINE RANDOM (04/01/2018 11:40 AM CDT) Sodium, Random 11 MMOL/L [facility] Specimen Urine - Urine Performing Organization Address [facility] Phone Number [facility] [address] [place] [address] * UA REFLEX CULTURE LABEL (04/01/2018 11:40 AM CDT) UA Reflex Culture LAB LABEL [facility] Specimen Urine Performing Organization Address [facility] Phone Number [facility] [address] [place] [address] * URINALYSIS MICROSCOPIC REFLEX TO CULTURE (04/01/2018 11:40 AM CDT) WBCs,UA 0-2 0 - 2 [...] Specimen Urine Performing Organization Address [facility] Phone Number [facility] [address] [place] [address] * URINALYSIS DIPSTICK REFLEX TO CULTURE (04/01/2018 11:40 AM CDT) Color,UA YELLOW [facility] Turbidity,UA 1+ (A) CLEAR-CLEAR [facility] Specific [place]-Urine 1.014 1.003 - 1.035 [facility] [...] MAIN LAB Specimen Urine Performing Organization Address [facility]/Zipcode Phone Number [facility] [address] [place] [address] * POC GLUCOSE (04/01/2018 8:25 AM CDT) Glucose, POC 169 (H) 70 - 100 MG/DL [facility] Performing Organization Address [facility] Phone Number [facility] [address] [place] [address] * URIC ACID (04/01/2018 7:50 AM CDT) Uric Acid 13.7 (H) 2.0 - 7.0 MG/DL [facility] Specimen Blood Performing Organization Address [facility] Phone Number [facility] [address] [place] [phone] * CREATINE KINASE-CPK (04/01/2018 7:50 AM CDT) Creatine Kinase 16 (L) 21 - 215 U/L MAIN LAB Specimen Blood Performing Organization Address [facility] Phone Number [facility] [address] [place] [phone] * MAGNESIUM (04/01/2018 7:50 AM CDT) Magnesium 1.7 1.6 - 2.6 mg/dL MAIN LAB Specimen Blood Performing Organization Address [facility] Phone Number [facility] [address] [place] [address] * CBC AND DIFF (04/01/2018 7:50 AM CDT) White Blood Cells 7.2 4.5 - 11.0 K/UL MAIN LAB RBC 2.88 (L) 4.0 - 5.0 M/UL MAIN LAB Hemoglobin 9.1 (L) 12.0 - 15.0 GM/DL [facility] Hematocrit 28.3 (L) 36 - 45 % [facility] MCV 98.1 80 - 100 FL [facility] MCH 31.4 26 - 34 PG MAIN LAB MCHC 32.0 32.0 - 36.0 G/DL MAIN LAB RDW 18.9 (H) 11 - 15 % [facility] Platelet Count 196 150 - 400 K/UL [facility] MPV 8.2 7 - 11 FL [facility] Neutrophils 68 41 - 77 % [facility] Lymphocytes 14 (L) 24 - 44 % [facility] Monocytes 12 4 - 12 % [facility] Eosinophils 5 0 - 5 % [facility] Basophils 1 0 - 2 % [facility] Absolute Neutrophil Count 4.90 1.8 - 7.0 K/UL [facility] Absolute Lymph Count 1.00 1.0 - 4.8 K/UL [facility] Absolute Monocyte Count 0.90 (H) 0 - 0.80 K/UL [facility] Absolute Eosinophil Count 0.30 0 - 0.45 K/UL [facility] Absolute Basophil Count 0.10 0 - 0.20 K/UL [facility] Specimen Blood Performing Organization Address City/[facility]/Zipcode Phone Number MAIN LAB [address] [place] [address] * BASIC METABOLIC PANEL (04/01/2018 7:50 AM CDT) Sodium 132 (L) 137 - 147 MMOL/L [facility] Potassium 4.2 3.5 - 5.1 MMOL/L [facility] Chloride 98 98 - 110 MMOL/L [facility] CO2 24 21 - 30 MMOL/L [facility] Anion Gap 10 3 - 12 [facility] Glucose 160 (H) 70 - 100 MG/DL [facility] Blood Urea Nitrogen 50 (H) 7 - 25 MG/DL [facility] Creatinine 2.97 (H) 0.4 - 1.00 MG/DL [facility] Calcium 9.6 8.5 - 10.6 MG/DL [facility] eGFR Non 16 (L) >60 mL/min [facility] Comment: [...] for questions. Specimen Blood Performing Organization Address City/[facility]/Zipcode Phone Number [facility] [address] [place] [address] * CHEST SINGLE VIEW (04/01/2018 6:20 AM CDT) Impressions Performed At 1.Persistent marked enlargement of the cardiac silhouette with pulmonary [facility] RAD RESULTS edema. 2.Stable left pleural effusion and left basilar consolidation, likely atelectasis. Approved by Esau Hurst M.D. on 04/01/2018 11:41 AM By my electronic signature, I attest that I have personally reviewed the images for this examination and formulated the interpretations and opinions expressed in this report Finalized by Jorge Winters M.D. on 04/01/2018 5:56 PM. Dictated by Esau Hurst M.D. on 04/01/2018 11:38 AM. Narrative Performed At CHEST SINGLE VIEW [facility] RAD RESULTS Clinical Indication: Female, 62 years old. Pleural effusion. Comparison: Chest radiograph 03/31/2018. Findings: Prior median sternotomy and CABG. Marked enlargement of the cardiac silhouette with partial obscuration of the left border. Prominence of the pulmonary vasculature. Diffuse interstitial prominence bilaterally. Stable left pleural effusion and left basilar consolidation. No pneumothorax. Procedure Note Interface, Radiant Results - 04/01/2018 5:59 PM CDT CHEST SINGLE VIEW Clinical Indication: Female, 62 years old. Pleural effusion. Comparison: Chest radiograph 03/31/2018. Findings: Prior median sternotomy and CABG. Marked enlargement of the cardiac silhouette with partial obscuration of the left border. Prominence of the pulmonary vasculature. Diffuse interstitial prominence bilaterally. Stable left pleural effusion and left basilar consolidation. No pneumothorax. IMPRESSION 1. Persistent marked enlargement of the cardiac silhouette with pulmonary edema. 2. Stable left pleural effusion and left basilar consolidation, likely atelectasis. Approved by Esau Hurst M.D. on 04/01/2018 11:41 AM By my electronic signature, I attest that I have personally reviewed the images for this examination and formulated the interpretations and opinions expressed in this report Finalized by Jorge Winters M.D. on 04/01/2018 5:56 PM. Dictated by Esau Hurst M.D. on 04/01/2018 11:38 AM. Performing Organization Address City/State/Zipcode Phone Number [facility] RAD RESULTS * BLOOD GASES, ARTERIAL (03/31/2018 11:57 PM CDT) pH-Arterial 7.27 (L) 7.35 - 7.45 [facility] pCO2-Arterial 59 (H) 35 - 45 MMHG [facility] pO2-Arterial 76 (L) 80 - 100 MMHG [facility] Base Deficit-Arterial 0.8 MMOL/L [facility] O2 Sat-Arterial 95.0 95 - 99 % MAIN LAB Gtdnffmuzha-MAO-Obw 23.7 21 - 28 MMOL/L MAIN LAB Specimen Blood, arterial - Blood Performing Organization Address City/[facility] Phone Number [facility] LAB [address] [place] [address] * CULTURE-BLOOD W/SENSITIVITY (03/31/2018 9:58 PM CDT) Battery Name BLOOD CULTURE MAIN LAB Specimen Description BLOOD MAIN LAB LEFT ANTECUBITAL Special Requests NONE MAIN LAB Culture NO GROWTH 5 DAYS MAIN LAB Report Status FINAL MAIN LAB 04/06/2018 Specimen Blood Performing Organization Address City/[facility]/Zipcode Phone Number MAIN LAB [address] [place] [address] * LACTIC ACID (BG - RAPID LACTATE) (03/31/2018 9:50 PM CDT) Lactic Acid,BG 1.3 0.5 - 2.0 MMOL/L MAIN LAB Specimen Blood Performing Organization Address City/[facility] Phone Number [facility] [address] [place] [address] * CULTURE-BLOOD W/SENSITIVITY (03/31/2018 9:50 PM CDT) Battery Name BLOOD CULTURE MAIN LAB Specimen Description BLOOD MAIN LAB RIGHT ANTECUBITAL Special Requests NONE MAIN LAB Culture NO GROWTH 5 DAYS MAIN LAB Report Status FINAL MAIN LAB 04/06/2018 Specimen Blood Performing Organization Address City/[facility] Phone Number MA[facility] LAB [address] [place] [address] * POC GLUCOSE (03/31/2018 9:12 PM CDT) Glucose, POC 160 (H) 70 - 100 MG/DL MAIN LAB Performing Organization Address City/[facility]/Zipcode Phone Number MAIN LAB [address] [place] [address] * POC GLUCOSE (03/31/2018 5:48 PM CDT) Glucose, POC 173 (H) 70 - 100 MG/DL MAIN LAB Performing Organization Address City/[facility] Phone Number MA[facility] [address] [place] [address] * COMPREHENSIVE METABOLIC PANEL (03/31/2018 3:35 PM CDT) Sodium 131 (L) 137 - 147 MMOL/L MAIN LAB Potassium 4.4 3.5 - 5.1 MMOL/L MAIN LAB Chloride 99 98 - 110 MMOL/L MAIN LAB Glucose 142 (H) 70 - 100 MG/DL MAIN LAB Blood Urea Nitrogen 48 (H) 7 - 25 MG/DL MAIN LAB Creatinine 3.10 (H) 0.4 - 1.00 MG/DL K[facility] Calcium 9.6 8.5 - 10.6 MG/DL [facility] Total Protein 7.6 6.0 - 8.0 G/DL [facility]IN [facility] Total Bilirubin 0.7 0.3 - 1.2 MG/DL MAIN LAB Albumin 3.5 3.5 - 5.0 G/DL MAIN LAB Alk Phosphatase 60 25 - 110 U/L [facility] AST (SGOT) 14 7 - 40 U/L MAIN LAB CO2 24 21 - 30 MMOL/L [facility] ALT (SGPT) 6 (L) 7 - 56 U/L [facility] Anion Gap 8 3 - 12 [facility] eGFR Non 15 (L) >60 mL/min [facility] Comment: The eGFR is not validated for use in drug dosing adjustments.Continue to use estimated creatinine clearance per dosing reference text.Please contact the Clinical Pharmacist for questions. eGFR 19 (L) >60 mL/min [facility] Comment: The eGFR is not validated for use in drug dosing adjustments.Continue to use estimated creatinine clearance per dosing reference text.Please contact the Clinical Pharmacist for questions. Specimen Blood Performing Organization Address City/State/Zipcode Phone Number [facility] [address] [place] [address] * POC GLUCOSE (03/31/2018 12:17 PM CDT) Glucose, POC 137 (H) 70 - 100 MG/DL [facility] Performing Organization Address City/State/Zipcode Phone Number [facility] [address] [place] [address] * 2-D + DOPPLER ECHOCARDIOGRAM (03/31/2018 11:57 [...] m/s OTHER OUTSIDE LAB MV Peak A Zahra 0.34 m/s OTHER OUTSIDE LAB MV Peak E Zahra PW 1.16 m/s OTHER OUTSIDE LAB Sinus [...] <=0.42 OTHER OUTSIDE LAB Cardiology Ultrasound Siemens [id number] OTHER OUTSIDE LAB Machine Left Ventricle Mass Index 86.94 44 - 88 g/m2 OTHER OUTSIDE LAB CV ECHO PV ELEVATOR ADJUSTER Marissa CHANDLER OTHER OUTSIDE LAB TV rest pulmonary artery [...] Elevated pulmonary artery pressure. Performing Organization Address City/State/Zipcode Phone Number OTHER OUTSIDE LAB * CHEST SINGLE VIEW (03/31/2018 11:06 AM CDT) Impressions Performed At Interval removal of the small caliber left thoracostomy tube. [facility] Otherwise stable chest radiograph. Finalized by Eddy Hauser M.D. on 03/31/2018 11:21 AM. Dictated by Eddy Hauser M.D. on 03/31/2018 11:20 AM. Narrative Performed At CHEST SINGLE VIEW [facility] RESULTS History: CT out. Pleural effusion, atelectasis Technique: Single portable AP upright view of the chest was obtained. Comparison: Comparison is made to an examination of earlier the same day.. Findings: The small caliber pigtail left thoracostomy tube has been removed. There is unchanged left pleural thickening and left pleural effusion associated with extensive atelectasis of the left lung. There is unchanged cardiomegaly and widening of the mediastinum. There is persistent pulmonary vascular congestion. No pneumothorax is identified. Procedure Note Interface, Radiant Results - 03/31/2018 11:24 AM CDT CHEST SINGLE VIEW History: CT out. Pleural effusion, atelectasis Technique: Single portable AP upright view of the chest was obtained. Comparison: Comparison is made to an examination of earlier the same day.. Findings: The small caliber pigtail left thoracostomy tube has been removed. There is unchanged left pleural thickening and left pleural effusion associated with extensive atelectasis of the left lung. There is unchanged cardiomegaly and widening of the mediastinum. There is persistent pulmonary vascular congestion. No pneumothorax is identified. IMPRESSION Interval removal of the small caliber left thoracostomy tube. Otherwise stable chest radiograph. Finalized by Eddy Hauser M.D. on 03/31/2018 11:21 AM. Dictated by Eddy Hauser M.D. on 03/31/2018 11:20 AM. Performing Organization Address [facility] Phone Number [facility] * CHEST 2 VIEWS (03/31/2018 8:17 AM CDT) Impressions Performed At Stable chest radiograph demonstrating cardiomegaly, mediastinal widening, left [facility] RESULTS pleural effusion, and extensive atelectasis of the left lung. Finalized by Eddy Hauser M.D. on 03/31/2018 11:36 AM. Dictated by Eddy Hauser M.D. on 03/31/2018 11:35 AM. Narrative Performed At CHEST 2 VIEWS [facility] History: pleural effusion. Technique: PA and lateral views of the chest were obtained. Comparison: Comparison is made to an examination of earlier the same day. Findings: Small caliber left pigtail pleural drain remains in place. Left pleural effusion and pleural thickening persists associated with extensive atelectasis of the left lung. There is unchanged cardiomegaly and widening of the mediastinum. There is unchanged pulmonary vascular congestion. No pneumothorax is identified. Procedure Note Interface, Radiant Results - 03/31/2018 11:39 AM CDT CHEST 2 VIEWS History: pleural effusion. Technique: PA and lateral views of the chest were obtained. Comparison: Comparison is made to an examination of earlier the same day. Findings: Small caliber left pigtail pleural drain remains in place. Left pleural effusion and pleural thickening persists associated with extensive atelectasis of the left lung. There is unchanged cardiomegaly and widening of the mediastinum. There is unchanged pulmonary vascular congestion. No pneumothorax is identified. IMPRESSION Stable chest radiograph demonstrating cardiomegaly, mediastinal widening, left pleural effusion, and extensive atelectasis of the left lung. Finalized by Eddy Hauser M.D. on 03/31/2018 11:36 AM. Dictated by Eddy Hauser M.D. on 03/31/2018 11:35 AM. Performing Organization Address City/State/Zipcode Phone Number [facility] * POC GLUCOSE (03/31/2018 7:34 AM CDT) Glucose, POC 141 (H) 70 - 100 MG/DL [facility] Performing Organization Address City/State/Zipcode Phone Number [facility] [address] [place] [address] * CHEST SINGLE VIEW (03/31/2018 4:50 AM CDT) Impressions Performed At Increase in cardiac size as well as progressing widening of the mediastinum. [facility] RESULTS Possibility of accumulation of fluid or blood in the mediastinum and/or pericardium should be considered. CT or echocardiography would be useful for further evaluation. Progressing findings of vascular congestion now with evidence of pulmonary edema. Progressing atelectasis of the left lung. Dr. Hauser discussed the findings and recommendations with the patient's nurse, Erendira, at 800 hours 03/31/2018. Finalized by Eddy Hauser M.D. on 03/31/2018 8:04 AM. Dictated by Eddy Hauser M.D. on 03/31/2018 7:53 AM. Narrative Performed At CHEST SINGLE VIEW [facility] RES[facility] History: chest pain.. Technique: Single portable AP upright view of the chest was obtained. Comparison: Comparison is made to an examination of the previous day.. Findings: There has been progression of the mediastinal widening with increased convexity particularly in the region of the aorticopulmonary window. There is also progressing cardiomegaly. There is worsening pulmonary vascular congestion now with loss of definition of the vascular markings consistent with an element of pulmonary edema. Changes of prior sternotomy are again noted. There are multiple surgical clips in the mediastinum. Pigtail left thoracostomy tube remains in place. Left pleural effusion persists. There has been progression of the atelectasis in the left lung, particularly of the left lower lobe. Procedure Note Interface, Radiant Results - 03/31/2018 8:07 AM CDT CHEST SINGLE VIEW History: chest pain.. Technique: Single portable AP upright view of the chest was obtained. Comparison: Comparison is made to an examination of the previous day.. Findings: There has been progression of the mediastinal widening with increased convexity particularly in the region of the aorticopulmonary window. There is also progressing cardiomegaly. There is worsening pulmonary vascular congestion now with loss of definition of the vascular markings consistent with an element of pulmonary edema. Changes of prior sternotomy are again noted. There are multiple surgical clips in the mediastinum. Pigtail left thoracostomy tube remains in place. Left pleural effusion persists. There has been progression of the atelectasis in the left lung, particularly of the left lower lobe. IMPRESSION Increase in cardiac size as well as progressing widening of the mediastinum. Possibility of accumulation of fluid or blood in the mediastinum and/or pericardium should be considered. CT or echocardiography would be useful for further evaluation. Progressing findings of vascular congestion now with evidence of pulmonary edema. Progressing atelectasis of the left lung. Dr. Hauser discussed the findings and recommendations with the patient's nurse, Erendira, at 800 hours 03/31/2018. Finalized by Eddy Hauser M.D. on 03/31/2018 8:04 AM. Dictated by Eddy Hauser M.D. on 03/31/2018 7:53 AM. Performing Organization Address City/State/Zipcode Phone Number [facility] * BLOOD GASES, ARTERIAL (03/31/2018 4:45 AM CDT) pH-Arterial 7.30 (L) 7.35 - 7.45 [facility] pCO2-Arterial 50 (H) 35 - 45 MMHG [facility] pO2-Arterial 76 (L) 80 - 100 MMHG [facility] Base Deficit-Arterial 2.2 MMOL/L [facility] O2 Sat-Arterial 94.8 (L) 95 - 99 % [facility] Ervaparbvug-VAL-Mpk 22.5 21 - 28 MMOL/L MAIN LAB Specimen Blood, arterial - Blood Performing Organization Address City/State/Zipcode Phone Number [facility] [address] [place] [address] * COMPREHENSIVE METABOLIC PANEL (03/31/2018 3:50 AM CDT) Sodium 133 (L) 137 - 147 MMOL/L [facility] Potassium 4.3 3.5 - 5.1 MMOL/L [facility] Chloride 99 98 - 110 MMOL/L [facility] Glucose 149 (H) 70 - 100 MG/DL [facility] Blood Urea Nitrogen 48 (H) 7 - 25 MG/DL [facility] Creatinine 3.06 (H) 0.4 - 1.00 MG/DL [facility] Calcium 9.3 8.5 - 10.6 MG/DL [facility] Total Protein 7.5 6.0 - 8.0 G/DL [facility] Total Bilirubin 0.7 0.3 - 1.2 MG/DL [facility] Albumin 3.4 (L) 3.5 - 5.0 G/DL [facility] Alk Phosphatase 59 25 - 110 U/L [facility] AST (SGOT) 14 7 - 40 U/L [facility] CO2 23 21 - 30 MMOL/L [facility] ALT (SGPT) 5 (L) 7 - 56 U/L [facility] Anion Gap 11 3 - 12 [facility] eGFR Non 16 (L) >60 mL/min [facility] Comment: [...] Blood Performing Organization Address City/State/Zipcode Phone Number [facility] [address] [place] [address] * CBC AND DIFF (03/31/2018 3:50 AM CDT) White Blood Cells 10.9 4.5 - 11.0 K/UL [facility] RBC 2.85 (L) 4.0 - 5.0 M/UL [facility] Hemoglobin 8.9 (L) 12.0 - 15.0 GM/DL [facility] Hematocrit 27.4 (L) 36 - 45 % [facility] MCV 96.1 80 - 100 FL [facility] MCH 31.2 26 - 34 PG [facility] MCHC 32.4 32.0 - 36.0 G/DL [facility] RDW 18.0 (H) 11 - 15 % [facility] Platelet Count 200 150 - 400 K/UL [facility] MPV 8.9 7 - 11 FL [facility] Neutrophils 75 41 - 77 % [facility] Lymphocytes 10 (L) 24 - 44 % [facility] Monocytes 11 4 - 12 % [facility] Eosinophils 3 0 - 5 % [facility] Basophils 1 0 - 2 % [facility] Absolute Neutrophil Count 8.20 (H) 1.8 - 7.0 K/UL [facility] Absolute Lymph Count 1.10 1.0 - 4.8 K/UL [facility] Absolute Monocyte Count 1.20 (H) 0 - 0.80 K/UL [facility] Absolute Eosinophil Count 0.30 0 - 0.45 K/UL [facility] Absolute Basophil Count 0.10 0 - 0.20 K/UL [facility] Specimen Blood Performing Organization Address City/[facility]/Zipcode Phone Number MAIN LAB [address] [place] [address] * POC GLUCOSE (03/30/2018 9:31 PM CDT) Glucose, POC 162 (H) 70 - 100 MG/DL [facility] Performing Organization Address [facility] Phone Number [facility] [address] [place] [address] * POC GLUCOSE (03/30/2018 5:25 PM CDT) Glucose, POC 138 (H) 70 - 100 MG/DL [facility] Performing Organization Address [facility] Phone Number [facility] [address] [place] [address] * US RENAL BLADDER LTD (03/30/2018 4:21 PM CDT) Impressions Performed At Unremarkable renal ultrasound. RAD RESULTS Finalized by Edda Harden M.D. [...] on 03/30/2018 4:22 PM. Performing Organization Address City/[facility]/Zipcode Phone Number I AM AT RAD RESULTS * POC GLUCOSE (03/30/2018 12:48 PM CDT) Glucose, POC 187 (H) 70 - 100 MG/DL [facility] Performing Organization Address City/[facility] Phone Number [facility] [address] [place] [address] * OSMOLALITY-URINE RANDOM (03/30/2018 12:31 PM CDT) Osmolality-Urine 364 50 - 1,400 MOS/KG [facility] Specimen Urine - Urine Performing Organization Address City/[facility]/Zipcode Phone Number [facility] AM AT [facility]IN LAB [address] [place] [address] * UREA NITROGEN-URINE RANDOM (03/30/2018 12:31 PM CDT) Urea Nitrogen 311 MG/DL I AM AT MAIN LAB Specimen Urine - Urine Performing Organization Address [facility] Phone Number [facility] [address] [place] [address] * CREATININE-URINE RANDOM (03/30/2018 12:31 PM CDT) Creatinine, Random 244 MG/DL [facility] Specimen Urine - Urine Performing Organization Address City/[facility] Phone Number [facility] [address] [place] [address] * UA REFLEX CULTURE LABEL (03/30/2018 12:30 PM CDT) UA Reflex Culture LAB LABEL [facility] Specimen Urine Performing Organization Address [facility] Phone Number [facility] [address] [place] [address] * URINALYSIS MICROSCOPIC REFLEX TO CULTURE (03/30/2018 12:30 PM CDT) WBCs,UA 2-10 0 - 2 /HPF [facility] RBCs,UA 0-2 0 - 3 /HPF [facility] Comment,UA Urine submitted for reflex [facility] culture if criteria are met:WBC>10, positive nitrite and/or >=1+ leukocyte esterase. If quantity is not sufficient, an addendum will follow. MucousUA TRACE [facility] Bacteria,UA FEW (A) NEG-NEG [facility] Squamous Epithelial Cells 10-20 0 - 5 [facility] Hyaline Cast PACKED [facility] Renal Epitheilial 0-2 [facility] Transitional Epithelial 0-2 [facility] Specimen Urine Performing Organization Address [facility] Phone Number [facility] [address] [place] [address] * URINALYSIS DIPSTICK REFLEX TO CULTURE (03/30/2018 12:30 PM CDT) Color,UA CARLIE [facility] Turbidity,UA 1+ (A) CLEAR-CLEAR [facility] Specific [place]-Urine 1.021 1.003 - 1.035 [facility] pH,UA 5.0 5.0 - 8.0 [facility] Protein,UA 1+ (A) NEG-NEG [facility] Glucose,UA NEG NEG-NEG [facility] Ketones,UA NEG NEG-NEG [facility] Bilirubin,UA NEG NEG-NEG [facility] Blood,UA NEG NEG-NEG [facility] Urobilinogen,UA NORMAL NORM-NORMAL [facility] Nitrite,UA NEG NEG-NEG [facility] Leukocytes,UA NEG NEG-NEG [facility] Urine Ascorbic Acid, UA NEG NEG-NEG [facility] Specimen Urine Performing Organization Address [facility] Phone Number [facility] [address] [place] [address] * TELEMETRY STRIPS-SCAN (03/30/2018 11:43 AM CDT) Narrative Performed At Ordered by an unspecified provider. * POC GLUCOSE (03/30/2018 9:02 AM CDT) Glucose, POC 195 (H) 70 - 100 MG/DL [facility] Performing Organization Address [facility] Phone Number [facility] [address] [place] [address] * COMPREHENSIVE METABOLIC PANEL (03/30/2018 4:10 AM CDT) Sodium 133 (L) 137 - 147 MMOL/L [facility] Potassium 4.4 3.5 - 5.1 MMOL/L [facility] Chloride 100 98 - 110 MMOL/L [facility] Glucose 207 (H) 70 - 100 MG/DL [facility] Blood Urea Nitrogen 40 (H) 7 - 25 MG/DL [facility] Creatinine 2.80 (H) 0.4 - 1.00 MG/DL [facility] Calcium 9.2 8.5 - 10.6 MG/DL [facility] Total Protein 7.2 6.0 - 8.0 G/DL [facility] Total Bilirubin 0.8 0.3 - 1.2 MG/DL [facility] Albumin 3.2 (L) 3.5 - 5.0 G/DL [facility] Alk Phosphatase 62 25 - 110 U/L [facility] AST (SGOT) 10 7 - 40 U/L [facility] CO2 25 21 - 30 MMOL/L [facility] ALT (SGPT) 4 (L) 7 - 56 U/L [facility] Anion Gap 8 3 - 12 [facility] eGFR Non 17 (L) >60 mL/min [facility] Comment: The eGFR is not validated for use in drug dosing adjustments.Continue to use estimated creatinine clearance per dosing reference text.Please contact the Clinical Pharmacist for questions. eGFR 21 (L) >60 mL/min [facility] Comment: The eGFR is not validated for use in drug dosing adjustments.Continue to use estimated creatinine clearance per dosing reference text.Please contact the Clinical Pharmacist for questions. Specimen Blood Performing Organization Address [facility] Phone Number [facility] [address] [place] [address] * CBC AND DIFF (03/30/2018 4:10 AM CDT) White Blood Cells 7.0 4.5 - 11.0 K/UL [facility] RBC 2.67 (L) 4.0 - 5.0 M/UL [facility] Hemoglobin 8.4 (L) 12.0 - 15.0 GM/DL [facility] Hematocrit 26.3 (L) 36 - 45 % [facility] MCV 98.5 80 - 100 FL [facility] MCH 31.6 26 - 34 PG [facility] MCHC 32.0 32.0 - 36.0 G/DL [facility] RDW 18.9 (H) 11 - 15 % [facility] Platelet Count 167 150 - 400 K/UL [facility] MPV 8.2 7 - 11 FL [facility] Neutrophils 75 41 - 77 % [facility] Lymphocytes 12 (L) 24 - 44 % [facility] Monocytes 11 4 - 12 % [facility] Eosinophils 2 0 - 5 % [facility] Basophils 0 0 - 2 % [facility] Absolute Neutrophil Count 5.30 1.8 - 7.0 K/UL [facility] Absolute Lymph Count 0.80 (L) 1.0 - 4.8 K/UL [facility] Absolute Monocyte Count 0.70 0 - 0.80 K/UL [facility] Absolute Eosinophil Count 0.10 0 - 0.45 K/UL [facility] Absolute Basophil Count 0.00 0 - 0.20 K/UL [facility] Specimen Blood Performing Organization Address [facility] Phone Number [facility] [address] [place] [address] * CHEST SINGLE VIEW (03/30/2018 3:08 AM CDT) Impressions Performed At 1.Moderate cardiomegaly with persistent mild pulmonary vascular congestion , [facility] RESULTS findings compatible with congestive heart failure. 2.Small left pleural effusion and left basilar atelectasis. Approved by Esau Hurst M.D. on 03/30/2018 10:40 AM By my electronic signature, I attest that I have personally reviewed the images for this examination and formulated the interpretations and opinions expressed in this report Finalized by Pancho Green M.D. on 03/30/2018 10:50 AM. Dictated by Esau Hurst M.D. on 03/30/2018 10:33 AM. Narrative Performed At CHEST SINGLE VIEW [facility] RESULTS Clinical Indication: Female, 62 years old. Dyspnea. Comparison: Chest radiograph 03/26/2018. Findings: Left pleural drain, sternotomy wires, and surgical clips remain in place. Moderate cardiomegaly. Persistent mild pulmonary vascular congestion. Left basilar atelectasis. Small left pleural effusion. No pneumothorax is identified. Procedure Note Interface, Radiant Results - 03/30/2018 10:53 AM CDT CHEST SINGLE VIEW Clinical Indication: Female, 62 years old. Dyspnea. Comparison: Chest radiograph 03/26/2018. Findings: Left pleural drain, sternotomy wires, and surgical clips remain in place. Moderate cardiomegaly. Persistent mild pulmonary vascular congestion. Left basilar atelectasis. Small left pleural effusion. No pneumothorax is identified. IMPRESSION 1. Moderate cardiomegaly with persistent mild pulmonary vascular congestion, findings compatible with congestive heart failure. 2. Small left pleural effusion and left basilar atelectasis. Approved by Esau Hurst M.D. on 03/30/2018 10:40 AM By my electronic signature, I attest that I have personally reviewed the images for this examination and formulated the interpretations and opinions expressed in this report Finalized by Pancho Green M.D. on 03/30/2018 10:50 AM. Dictated by Esau Hurst M.D. on 03/30/2018 10:33 AM. Performing Organization Address [facility] Phone Number RAD RESULTS * POC GLUCOSE (03/29/2018 8:42 PM CDT) Glucose, POC 173 (H) 70 - 100 MG/DL [facility] Performing Organization Address [facility] Phone Number [facility] [address] [place] [address] * POC GLUCOSE (03/29/2018 5:07 PM CDT) Glucose, POC 207 (H) 70 - 100 MG/DL [facility] Performing Organization Address [facility] Phone Number [facility] [address] [place] [address] * OSMOLALITY-URINE RANDOM (03/29/2018 4:02 PM CDT) Osmolality-Urine 342 50 - 1,400 MOS/KG [facility] Specimen Urine - Urine Performing Organization Address City/[facility] Phone Number [facility] [address] [place] [address] * UREA NITROGEN-URINE RANDOM (03/29/2018 4:02 PM CDT) Urea Nitrogen 247 MG/DL [facility] Specimen Urine - Urine Performing Organization Address City/[facility] Phone Number [facility] [address] [place] [address] * SODIUM-URINE RANDOM (03/29/2018 4:02 PM CDT) Sodium, Random 12 MMOL/L [facility] Specimen Urine - Urine Performing Organization Address City/[facility] Phone Number [facility] [address] [place] [address] * CREATININE-URINE RANDOM (03/29/2018 4:02 PM CDT) Creatinine, Random 194 MG/DL [facility] Specimen Urine - Urine Performing Organization Address City/[facility] Phone Number [facility] [address] [place] [address] * POC GLUCOSE (03/29/2018 11:33 AM CDT) Glucose, POC 214 (H) 70 - 100 MG/DL [facility] Performing Organization Address City/[facility] Phone Number [facility] [address] [place] [address] * POC GLUCOSE (03/29/2018 10:32 AM CDT) Glucose, POC 203 (H) 70 - 100 MG/DL [facility] Performing Organization Address City/[facility] Phone Number [facility] [address] [place] [address] * POC GLUCOSE (03/29/2018 8:37 AM CDT) Glucose, POC 215 (H) 70 - 100 MG/DL [facility] Performing Organization Address City/[facility] Phone Number [facility] [address] [place] [address] * EGD REPORT (03/29/2018 7:42 AM CDT) Provation Report Patient Name: Donnie CASTILLO OTHER RESULTS Procedure Date: 03/29/2018 7:42 AM CSN: [id number] Date of : 1955 Gender: Female Attending Physician: Dannielle Covington MD Procedure: Upper GI endoscopy Indications: Iron deficiency anemia Providers: Dannielle Covington MD (Doctor), Conner Martines MD (Fellow), Myla Meza RN (Nurse), Lynette Aguero, Piece Hand (Piece Hand) Referring Physician: Dominic Fuller MD, Carla Puente [...] of the duodenum were normal. Impression: - [place]on[place]-colored mucosa suspicious for Long's esophagus. Biopsy is [...] discussed her endoscopic findings with Dr. Maier (store gift wrap associate). 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 Please consult hepatology team for further management. Scope In: 11:08:40 AM Scope Out: 11:17:33 AM Total Procedure Duration Time 0 hours 8 minutes 53 seconds Procedure Code(s): --- Professional --- 57923, Esophagogastroduodenoscopy, flexible, transoral; diagnostic, including collection of specimen(s) by brushing or washing, when performed (separate procedure) Diagnosis Code(s): --- Professional --- K22.8, Other specified diseases of esophagus I85.00, Esophageal varices without bleeding K76.6, Portal hypertension K31.89, Other diseases of stomach and duodenum K31.819, Angiodysplasia of stomach and duodenum without bleeding D50.9, Iron deficiency anemia, unspecified CPT copyright 2016 [employer]. All rights reserved. The codes documented in this report are preliminary and upon clinical dental technician review may be revised to meet current compliance requirements. Attending Participation: I was present and participated during the entire procedure, including non-dempsey portions. MD Dannielle Velázquez MD 03/29/2018 12:03:01 PM The attending physician has electronically signed and finalized this document. Conner Martines MD Number of Addenda: 0 Note Initiated On: 03/29/2018 7:42 AM Performing Organization Address City/State/Zipcode Phone Number [facility] OTHER RESULTS * COMPREHENSIVE METABOLIC PANEL (03/29/2018 5:00 AM CDT) Sodium 132 (L) 137 - 147 MMOL/L [facility] Potassium 4.7Comment: SLT HEMOLYSIS 3.5 - 5.1 MMOL/L [facility] Chloride 100 98 - 110 MMOL/L [facility] Glucose 251 (H) 70 - 100 MG/DL [facility] Blood Urea Nitrogen 34 (H) 7 - 25 MG/DL [facility] Creatinine 2.45 (H) 0.4 - 1.00 MG/DL [facility] Calcium 9.3 8.5 - 10.6 MG/DL [facility] Total Protein 7.5 6.0 - 8.0 G/DL [facility] Total Bilirubin 0.6 0.3 - 1.2 MG/DL [facility] Albumin 3.2 (L) 3.5 - 5.0 G/DL [facility] Alk Phosphatase 66 25 - 110 U/L [facility] AST (SGOT) 27 7 - 40 U/L [facility] CO2 25 21 - 30 MMOL/L [facility] ALT (SGPT) 7 7 - 56 U/L [facility] Anion Gap 7 3 - 12 [facility] eGFR Non 20 (L) >60 mL/min [facility] Comment: The eGFR is not validated for use in drug dosing adjustments.Continue to use estimated creatinine clearance per dosing reference text.Please contact the Clinical Pharmacist for questions. eGFR 24 (L) >60 mL/min [facility] Comment: The eGFR is not validated for use in drug dosing adjustments.Continue to use estimated creatinine clearance per dosing reference text.Please contact the Clinical Pharmacist for questions. Specimen Blood Performing Organization Address City/State/Zipcode Phone Number MAIN LAB [address] [place] [address] * CBC AND DIFF (03/29/2018 5:00 AM CDT) White Blood Cells 7.6 4.5 - 11.0 K/UL [facility] RBC 2.76 (L) 4.0 - 5.0 M/UL [facility] Hemoglobin 8.7 (L) 12.0 - 15.0 GM/DL [facility] Hematocrit 26.5 (L) 36 - 45 % [facility] MCV 95.9 80 - 100 FL [facility] MCH 31.5 26 - 34 PG [facility] MCHC 32.8 32.0 - 36.0 G/DL [facility] RDW 18.6 (H) 11 - 15 % [facility] Platelet Count 194 150 - 400 K/UL [facility] MPV 9.1 7 - 11 FL [facility] Neutrophils 72 41 - 77 % [facility] Lymphocytes 13 (L) 24 - 44 % [facility] Monocytes 10 4 - 12 % [facility] Eosinophils 5 0 - 5 % [facility] Basophils 0 0 - 2 % [facility] Absolute Neutrophil Count 5.50 1.8 - 7.0 K/UL [facility] Absolute Lymph Count 1.00 1.0 - 4.8 K/UL [facility] Absolute Monocyte Count 0.80 0 - 0.80 K/UL [facility] Absolute Eosinophil Count 0.30 0 - 0.45 K/UL [facility] Absolute Basophil Count 0.00 0 - 0.20 K/UL MAIN LAB Specimen Blood Performing Organization Address City/[facility]/Zipcode Phone Number MAIN LAB [address] [place] [address] * POC GLUCOSE (03/28/2018 9:23 PM CDT) Glucose, POC 241 (H) 70 - 100 MG/DL [facility] Performing Organization Address City/[facility] Phone Number [facility] [address] [place] [address] * POC GLUCOSE (03/28/2018 5:14 PM CDT) Glucose, POC 231 (H) 70 - 100 MG/DL [facility] Performing Organization Address City/[facility]/Zipcode Phone Number MAIN LAB [address] [place] [address] * POC GLUCOSE (03/28/2018 1:13 PM CDT) Glucose, POC 196 (H) 70 - 100 MG/DL [facility] Performing Organization Address City/[facility]/Zipcode Phone Number [facility] [address] [place] [address] * POC GLUCOSE (03/28/2018 9:24 AM CDT) Glucose, POC 219 (H) 70 - 100 MG/DL [facility] Performing Organization Address City/[facility]/[employer] Phone Number MAIN LAB [address] [place] [address] * COMPREHENSIVE METABOLIC PANEL (03/28/2018 4:50 AM CDT) Sodium 134 (L) 137 - 147 MMOL/L [facility] Potassium 4.4 3.5 - 5.1 MMOL/L [facility] Chloride 100 98 - 110 MMOL/L [facility] Glucose 232 (H) 70 - 100 MG/DL [facility] Blood Urea Nitrogen 31 (H) 7 - 25 MG/DL [facility] Creatinine 2.05 (H) 0.4 - 1.00 MG/DL [facility] Calcium 9.3 8.5 - 10.6 MG/DL [facility] Total Protein 7.3 6.0 - 8.0 G/DL [facility] Total Bilirubin 0.6 0.3 - 1.2 MG/DL [facility] Albumin 3.4 (L) 3.5 - 5.0 G/DL [facility] Alk Phosphatase 68 25 - 110 U/L [facility] AST (SGOT) 16 7 - 40 U/L [facility] CO2 26 21 - 30 MMOL/L [facility] ALT (SGPT) 6 (L) 7 - 56 U/L [facility] Anion Gap 8 3 - 12 [facility] eGFR Non 25 (L) >60 mL/min [facility] Comment: The eGFR is not validated for use in drug dosing adjustments.Continue to use estimated creatinine clearance per dosing reference text.Please contact the Clinical Pharmacist for questions. eGFR 30 (L) >60 mL/min [facility] Comment: The eGFR is not validated for use in drug dosing adjustments.Continue to use estimated creatinine clearance per dosing reference text.Please contact the Clinical Pharmacist for questions. Specimen Blood Performing Organization Address City/State/Zipcode Phone Number [facility] [address] [place] [address] * CBC AND DIFF (03/28/2018 4:50 AM CDT) White Blood Cells 5.5 4.5 - 11.0 K/UL [facility] RBC 2.79 (L) 4.0 - 5.0 M/UL [facility] Hemoglobin 8.8 (L) 12.0 - 15.0 GM/DL [facility] Hematocrit 27.0 (L) 36 - 45 % [facility] MCV 96.9 80 - 100 FL [facility] MCH 31.5 26 - 34 PG [facility] MCHC 32.5 32.0 - 36.0 G/DL [facility] RDW 19.3 (H) 11 - 15 % [facility] Platelet Count 157 150 - 400 K/UL [facility] MPV 8.3 7 - 11 FL [facility] Neutrophils 72 41 - 77 % [facility] Lymphocytes 14 (L) 24 - 44 % [facility] Monocytes 9 4 - 12 % [facility] Eosinophils 5 0 - 5 % [facility] Basophils 0 0 - 2 % [facility] Absolute Neutrophil Count 3.90 1.8 - 7.0 K/UL [facility] Absolute Lymph Count 0.80 (L) 1.0 - 4.8 K/UL [facility] Absolute Monocyte Count 0.50 0 - 0.80 K/UL MAIN LAB Absolute Eosinophil Count 0.30 0 - 0.45 K/UL [facility] Absolute Basophil Count 0.00 0 - 0.20 K/UL MAIN LAB Specimen Blood Performing Organization Address City/[facility] Phone Number MAIN LAB [address] [place] [address] * POC GLUCOSE (03/27/2018 9:23 PM CDT) Glucose, POC 200 (H) 70 - 100 MG/DL [facility] Performing Organization Address City/[facility] Cent[facility]ode Phone Number MAIN LAB [address] [place] [address] * POC GLUCOSE (03/27/2018 6:31 PM CDT) Glucose, POC 201 (H) 70 - 100 MG/DL MAIN LAB Performing Organization Address [facility] Cent[facility]ode Phone Number MAIN LAB [address] [place] [address] * ECG-SCAN (03/27/2018 11:05 AM CDT) Narrative Performed At Ordered by an unspecified provider. * POC GLUCOSE (03/27/2018 9:59 AM CDT) Glucose, POC 191 (H) 70 - 100 MG/DL [facility] Performing Organization Address City/[facility] Phone Number MAIN LAB [address] [place] [address] * POC GLUCOSE (03/27/2018 7:37 AM CDT) Glucose, POC 213 (H) 70 - 100 MG/DL [facility] Performing Organization Address [facility] Cent[facility]ode Phone Number MAIN LAB [address] [place] [address] * COMPREHENSIVE METABOLIC PANEL (03/27/2018 5:30 AM CDT) Sodium 134 (L) 137 - 147 MMOL/L [facility] Potassium 4.5 3.5 - 5.1 MMOL/L [facility] Chloride 102 98 - 110 MMOL/L [facility] Glucose 235 (H) 70 - 100 MG/DL [facility] Blood Urea Nitrogen 29 (H) 7 - 25 MG/DL [facility] Creatinine 1.59 (H) 0.4 - 1.00 MG/DL [facility] Calcium 9.4 8.5 - 10.6 MG/DL [facility] Total Protein 7.6 6.0 - 8.0 G/DL [facility] Total Bilirubin 1.0 0.3 - 1.2 MG/DL [facility] Albumin 3.4 (L) 3.5 - 5.0 G/DL [facility] Alk Phosphatase 74 25 - 110 U/L [facility] AST (SGOT) 18 7 - 40 U/L [facility] CO2 25 21 - 30 MMOL/L [facility] ALT (SGPT) 8 7 - 56 U/L [facility] Anion Gap 7 3 - 12 [facility] eGFR Non 33 (L) >60 mL/min [facility] Comment: The eGFR is not validated for use in drug dosing adjustments.Continue to use estimated creatinine clearance per dosing reference text.Please contact the Clinical Pharmacist for questions. eGFR 40 (L) >60 mL/min [facility] Comment: The eGFR is not validated for use in drug dosing adjustments.Continue to use estimated creatinine clearance per dosing reference text.Please contact the Clinical Pharmacist for questions. Specimen Blood Performing Organization Address City/State/Zipcode Phone Number MAIN LAB [address] [place] [address] * CBC AND DIFF (03/27/2018 5:30 AM CDT) White Blood Cells 5.4 4.5 - 11.0 K/UL [facility] RBC 2.83 (L) 4.0 - 5.0 M/UL [facility] Hemoglobin 8.7 (L) 12.0 - 15.0 GM/DL [facility] Hematocrit 27.3 (L) 36 - 45 % [facility] MCV 96.6 80 - 100 FL [facility] MCH 30.8 26 - 34 PG [facility] MCHC 31.9 (L) 32.0 - 36.0 G/DL [facility] RDW 20.5 (H) 11 - 15 % [facility] Platelet Count 158 150 - 400 K/UL [facility] MPV 8.4 7 - 11 FL [facility] Neutrophils 68 41 - 77 % [facility] Lymphocytes 17 (L) 24 - 44 % [facility] Monocytes 11 4 - 12 % [facility] Eosinophils 4 0 - 5 % [facility] Basophils 0 0 - 2 % [facility] Absolute Neutrophil Count 3.70 1.8 - 7.0 K/UL [facility] Absolute Lymph Count 0.90 (L) 1.0 - 4.8 K/UL [facility] Absolute Monocyte Count 0.60 0 - 0.80 K/UL [facility] Absolute Eosinophil Count 0.20 0 - 0.45 K/UL [facility] Absolute Basophil Count 0.00 0 - 0.20 K/UL [facility] Specimen Blood Performing Organization Address [facility] Phone Number [facility] [address] [place] [address] * URINALYSIS, MICROSCOPIC (03/27/2018 2:59 AM CDT) WBCs,UA 0-2 0 - 2 /HPF [facility] RBCs,UA 0-2 0 - 3 /HPF [facility] MucousUA TRACE [facility] Squamous Epithelial Cells 5-10 0 - 5 [facility] Hyaline Cast PACKED [facility] Specimen Urine - Urine Performing Organization Address [facility] Phone Number MAIN LAB [address] [place] [address] * URINALYSIS DIPSTICK (03/27/2018 2:59 AM CDT) Color,UA YELLOW [facility] Turbidity,UA CLEAR CLEAR-CLEAR [facility] Specific [place]-Urine 1.015 1.003 - 1.035 [facility] MAIN LAB [...] LAB Urine Ascorbic Acid, UA NEG NEG-NEG MAIN LAB Specimen Urine - Urine Performing Organization Address [facility] Centercode Phone Number [facility] [address] [place] [address] * TRANSFUSE RBC'S NON-BLEEDING PT (03/26/2018 10:53 PM CDT) * TRANSFUSE RBC'S NON-BLEEDING PT (03/26/2018 10:53 PM CDT) * POC GLUCOSE (03/26/2018 9:29 PM CDT) Glucose, POC 233 (H) 70 - 100 MG/DL [facility] Performing Organization Address City/[facility]/Zipcode Phone Number [facility] [address] [place] [address] * POC GLUCOSE (03/26/2018 3:10 PM CDT) Glucose, POC 177 (H) 70 - 100 MG/DL [facility] Performing Organization Address [facility] Phone Number [facility] [address] [place] [address] * CHEST X-RAY INSPIRATION/EXPIRATION (03/26/2018 1:41 PM [...] details; the drugs utilized were:Fentanyl and Versed I, Chauncey Menjivar M.D, the attending radiologist, was present for [...] expressed in this report Finalized by CHAUNCEY MENJIVAR on 03/26/2018 4:41 PM. Dictated by Ty [...] The needle was removed, and an 8 Scottish pigtail all purpose drainage catheter was advanced [...] The needle was removed, and an 8 Scottish pigtail all purpose drainage catheter was advanced [...] utilized were: Fentanyl and Versed I, Chauncey Menjivar M.D, the attending radiologist, was present for [...] expressed in this report Finalized by CHAUNCEY MENJIVAR on 03/26/2018 4:41 PM. Dictated by Ty Urrutia M.D. on 03/26/2018 2:14 PM. Performing Organization Address City/[facility] Phone Number [facility] RESULTS * POC GLUCOSE (03/26/2018 7:57 AM CDT) Glucose, POC 210 (H) 70 - 100 MG/DL [facility] Performing Organization Address City/[facility] Phone Number MA[facility] LAB [address] [place] [address] * CBC AND DIFF (03/26/2018 2:02 AM CDT) White Blood Cells 5.6 4.5 - 11.0 K/UL [facility] RBC 2.54 (L) 4.0 - 5.0 M/UL [facility] Hemoglobin 7.9 (L) 12.0 - 15.0 GM/DL [facility] Hematocrit 24.7 (L) 36 - 45 % [facility] MCV 96.9 80 - 100 FL [facility] MCH 30.8 26 - 34 PG [facility] MCHC 31.8 (L) 32.0 - 36.0 G/DL [facility] RDW 18.5 (H) 11 - 15 % [facility] Platelet Count 158 150 - 400 K/UL [facility] MPV 8.0 7 - 11 FL [facility] Neutrophils 71 41 - 77 % [facility] Lymphocytes 13 (L) 24 - 44 % [facility] Monocytes 10 4 - 12 % [facility] Eosinophils 6 (H) 0 - 5 % [facility] Basophils 0 0 - 2 % [facility] Absolute Neutrophil Count 4.00 1.8 - 7.0 K/UL [facility] Absolute Lymph Count 0.70 (L) 1.0 - 4.8 K/UL [facility] Absolute Monocyte Count 0.50 0 - 0.80 K/UL [facility] Absolute Eosinophil Count 0.40 0 - 0.45 K/UL [facility] Absolute Basophil Count 0.00 0 - 0.20 K/UL [facility] Performing Organization Address [facility] Centercode Phone Number MAIN LAB [address] [place] [address] * COMPREHENSIVE METABOLIC PANEL (03/26/2018 2:02 AM CDT) Sodium 136 (L) 137 - 147 MMOL/L [facility] Potassium 4.4 3.5 - 5.1 MMOL/L [facility] Chloride 105 98 - 110 MMOL/L [facility] Glucose 226 (H) 70 - 100 MG/DL [facility] Blood Urea Nitrogen 27 (H) 7 - 25 MG/DL [facility] Creatinine 1.49 (H) 0.4 - 1.00 MG/DL [facility] Calcium 9.3 8.5 - 10.6 MG/DL MAIN LAB Total Protein 7.0 6.0 - 8.0 G/DL MAIN LAB Total Bilirubin 0.5 0.3 - 1.2 MG/DL MAIN LAB Albumin 3.2 (L) 3.5 - 5.0 G/DL MAIN LAB Alk Phosphatase 75 25 - 110 U/L MAIN LAB AST (SGOT) 17 7 - 40 U/L [facility] CO2 25 21 - 30 MMOL/L MAIN LAB ALT (SGPT) 5 (L) 7 - 56 U/L MAIN LAB Anion Gap 6 3 - 12 MAIN LAB eGFR Non 36 (L) >60 mL/min MAIN LAB Comment: The eGFR is not validated for use in drug dosing adjustments.Continue to use estimated creatinine clearance per dosing reference text.Please contact the Clinical Pharmacist for questions. eGFR 43 (L) >60 mL/min MAIN LAB Comment: The eGFR is not validated for use in drug dosing adjustments.Continue to use estimated creatinine clearance per dosing reference text.Please contact the Clinical Pharmacist for questions. Performing Organization Address City/[facility]/Zipcode Phone Number MAIN LAB [address] [place] [address] * TROPONIN-I (03/26/2018 2:02 AM CDT) Troponin-I 0.01 0.0 - 0.05 NG/ML MAIN LAB Specimen Blood Performing Organization Address City/[facility]/Zipcode Phone Number [facility] [address] [place] [address] * POC GLUCOSE (03/25/2018 9:25 PM CDT) Glucose, POC 190 (H) 70 - 100 MG/DL MAIN LAB Performing Organization Address City/[facility]/Zipcode Phone Number [facility] [address] [place] [address] * CULTURE-BLOOD W/SENSITIVITY (03/25/2018 8:58 PM CDT) Battery Name BLOOD CULTURE MAIN LAB Specimen Description BLOOD MAIN LAB LEFT UPPER ARM Special Requests NONE MAIN LAB Culture NO GROWTH 5 DAYS MAIN LAB Report Status FINAL MAIN LAB 03/31/2018 Specimen Blood Performing Organization Address City/[facility]/Zipcode Phone Number MAIN LAB [address] [place] [address] * PHOSPHORUS (03/25/2018 8:53 PM CDT) Phosphorus 3.3Comment: NOTE NEW REFERENCE 2.0 - 4.5 MG/DL MAIN LAB RANGES Specimen Blood Performing Organization Address [facility] Phone Number MAIN LAB [address] [place] [address] * MAGNESIUM (03/25/2018 8:53 PM CDT) Magnesium 1.7 1.6 - 2.6 mg/dL MAIN LAB Specimen Blood Performing Organization Address [facility] Cent[facility]ode Phone Number MAIN LAB [address] [place] [address] * TYPE & CROSSMATCH (03/25/2018 8:53 PM CDT) Units Ordered 1 MAIN LAB Crossmatch Expires 03/28/2018 MAIN LAB Record Check FOUND [facility] ABO/RH(D) A POS MAIN LAB Antibody Screen NEG MAIN LAB Patient has a history of a clinically significant antibody. Unit Number [id number] MAIN LAB Blood Component Type RBC,ADSOL,LEUKO REDUCED MAIN LAB Unit Division 0 MAIN LAB Status OF Unit TRANSFUSED MAIN LAB Transfusion Status OK TO TRANSFUSE MAIN LAB Crossmatch Result COMPATIBLE, GEL MAIN LAB Specimen Blood Performing Organization Address [facility] Phone Number MAIN LAB [address] [place] [address] * LACTIC ACID (BG - RAPID LACTATE) (03/25/2018 8:53 PM CDT) Lactic Acid,BG 1.3 0.5 - 2.0 MMOL/L MAIN LAB Specimen Blood Performing Organization Address [facility] Phone Number MAIN LAB [address] [place] [address] * CULTURE-BLOOD W/SENSITIVITY (03/25/2018 8:53 PM CDT) Battery Name BLOOD CULTURE MAIN LAB Specimen Description BLOOD MAIN LAB LEFT ANTECUBITAL Special Requests NONE MAIN LAB Culture NO GROWTH 5 DAYS [facility]IN [facility] Report Status FINAL [facility] 03/31/2018 Specimen Blood Performing Organization Address [facility]ode Phone Number MAIN LAB [address] [place] [address] * TROPONIN-I (03/25/2018 8:53 PM CDT) Troponin-I 0.01 0.0 - 0.05 NG/ML [facility] Specimen Blood Performing Organization Address City/State/Zipcode Phone Number MAIN LAB [address] [place] [address] * CT HEAD WO CONTRAST (03/25/2018 6:23 PM CDT) Impressions Performed At Motion degraded exam without definite acute intracranial hemorrhage or mass [facility] RESULTS effect. Finalized by Terrence Hobbs M.D. on 03/25/2018 7:19 PM. Dictated by Terrence Hobbs M.D. on 03/25/2018 7:16 PM. Narrative Performed At CT Head [facility] RESULTS HISTORY: Neurologic exam, abnormal, tachycardia, shortness of breath TECHNIQUE: Multiple contiguous axial images were obtained of the brain without intravenous contrast. Coronal reformatted images were obtained from the source axial data. COMPARISON: No prior studies are available for comparison. FINDINGS: Evaluation is limited due to repetitive motion artifact. The ventricles and subarachnoid spaces are within normal limits for age. The purdy-white matter interfaces are grossly maintained. No definite acute intracranial hemorrhage or extra axial fluid collection is identified. The basal cisterns are patent. No midline shift or obvious mass effect. The calvarium and skull base are grossly intact. The mastoid air cells and visualized paranasal sinuses are well-aerated. Globes and orbits are grossly unremarkable. Procedure Note Interface, Radiant Results - 03/25/2018 7:[address] Head HISTORY: Neurologic exam, abnormal, tachycardia, shortness of breath TECHNIQUE: Multiple contiguous axial images were obtained of the brain without intravenous contrast. Coronal reformatted images were obtained from the source axial data. COMPARISON: No prior studies are available for comparison. FINDINGS: Evaluation is limited due to repetitive motion artifact. The ventricles and subarachnoid spaces are within normal limits for age. The purdy-white matter interfaces are grossly maintained. No definite acute intracranial hemorrhage or extra axial fluid collection is identified. The basal cisterns are patent. No midline shift or obvious mass effect. The calvarium and skull base are grossly intact. The mastoid air cells and visualized paranasal sinuses are well-aerated. Globes and orbits are grossly unremarkable. IMPRESSION Motion degraded exam without definite acute intracranial hemorrhage or mass effect. Finalized by Terrence Hobbs M.D. on 03/25/2018 7:19 PM. Dictated by Terrence Hobbs M.D. on 03/25/2018 7:16 PM. Performing Organization Address City/State/Zipcode Phone Number [facility] RESULTS * US DOPPLER VENOUS W HERMELINDO LEFT (03/25/2018 6:17 PM CDT) Impressions Performed [...] on 03/25/2018 8:54 PM. Performing Organization Address City/[facility] Phone Number RAD RESULTS * BNP POC ER (03/25/2018 4:16 PM CDT) BNP POC 327.0 (H) 0 - 100 PG/ML [facility] Performing Organization Address [facility] Phone Number [facility] [address] [place] [address] * POC TROPONIN (03/25/2018 4:09 PM CDT) Qhmnyfyp-X-MIB 0.00 0.00 - 0.05 NG/ML [facility] Performing Organization Address [facility] Phone Number MAIN LAB [address] [place] [address] * PHOSPHORUS (03/25/2018 4:07 PM CDT) Phosphorus 3.5Comment: NOTE NEW REFERENCE 2.0 - 4.5 MG/DL [facility] MAIN [facility] RANGES Specimen Blood Performing Organization Address [facility] Phone Number MAIN LAB [address] [place] [address] * MAGNESIUM (03/25/2018 4:07 PM CDT) Magnesium 1.8 1.6 - 2.6 mg/dL [facility]IN [facility] Specimen Blood Performing Organization Address [facility] Phone Number MAIN LAB [address] [place] [address] * COMPREHENSIVE METABOLIC PANEL (03/25/2018 4:07 PM CDT) Sodium 134 (L) 137 - 147 MMOL/L [facility] Potassium 4.4 3.5 - 5.1 MMOL/L [facility] Chloride 104 98 - 110 MMOL/L [facility] Glucose 163 (H) 70 - 100 MG/DL [facility] Blood Urea Nitrogen 27 (H) 7 - 25 MG/DL [facility] Creatinine 1.62 (H) 0.4 - 1.00 MG/DL [facility] Calcium 9.5 8.5 - 10.6 MG/DL [facility] Total Protein 7.6 6.0 - 8.0 G/DL [facility] Total Bilirubin 0.6 0.3 - 1.2 MG/DL [facility] Albumin 3.5 3.5 - 5.0 G/DL [facility] Alk Phosphatase 73 25 - 110 U/L [facility] AST (SGOT) 16 7 - 40 U/L [facility] CO2 25 21 - 30 MMOL/L [facility] ALT (SGPT) 7 7 - 56 U/L [facility] Anion Gap 5 3 - 12 [facility]IN [facility] eGFR Non 32 (L) >60 mL/min [facility] Comment: The eGFR is not validated for use in drug dosing adjustments.Continue to use estimated creatinine clearance per dosing reference text.Please contact the Clinical Pharmacist for questions. eGFR 39 (L) >60 mL/min [facility] Comment: The eGFR is not validated for use in drug dosing adjustments.Continue to use estimated creatinine clearance per dosing reference text.Please contact the Clinical Pharmacist for questions. Specimen Blood Performing Organization Address City/State/Zipcode Phone Number [facility] [address] [place] [address] * CBC AND DIFF (03/25/2018 4:07 PM CDT) White Blood Cells 4.8 4.5 - 11.0 K/UL [facility] RBC 2.81 (L) 4.0 - 5.0 M/UL [facility] Hemoglobin 8.5 (L) 12.0 - 15.0 GM/DL [facility] Hematocrit 27.1 (L) 36 - 45 % [facility] MCV 96.3 80 - 100 FL [facility] MCH 30.2 26 - 34 PG [facility] MCHC 31.3 (L) 32.0 - 36.0 G/DL [facility] RDW 18.5 (H) 11 - 15 % [facility] Platelet Count 157 150 - 400 K/UL [facility] MPV 8.1 7 - 11 FL [facility] Neutrophils 68 41 - 77 % [facility] Lymphocytes 17 (L) 24 - 44 % [facility] Monocytes 9 4 - 12 % [facility] Eosinophils 6 (H) 0 - 5 % [facility] Basophils 0 0 - 2 % [facility] Absolute Neutrophil Count 3.20 1.8 - 7.0 K/UL [facility] Absolute Lymph Count 0.80 (L) 1.0 - 4.8 K/UL [facility] Absolute Monocyte Count 0.50 0 - 0.80 K/UL [facility] Absolute Eosinophil Count 0.30 0 - 0.45 K/UL [facility] Absolute Basophil Count 0.00 0 - 0.20 K/UL MAIN LAB Specimen Blood Performing Organization Address City/State/Zipcode Phone Number I AM AT MAIN LAB [address] [place] [address] * CHEST SINGLE VIEW (03/25/2018 3:50 PM CDT) Impressions Performed At 1. Stable moderate to large left pleural effusion. [facility] RESULTS 2. Unchanged left mid and lower lung zone opacities likely associated atelectasis. Finalized by Steve Kang M.D. on 03/25/2018 4:29 PM. Dictated by Steve Kang M.D. on 03/25/2018 4:28 PM. Narrative Performed At CHEST SINGLE VIEW [facility] RESULTS INDICATION: SHORTNESS OF BREATH COMPARISON STUDY: February 27, 2018. FINDINGS: Lungs: The lung volume is normal. Unchanged left mid and lower lung zone opacities. Pleura: Stable moderate to large left pleural effusion. Heart and Mediastinum: The cardiomediastinal silhouette and great vessels are stable. Procedure Note Interface, Radiant Results - 03/25/2018 4:33 PM CDT CHEST SINGLE VIEW INDICATION: SHORTNESS OF BREATH COMPARISON STUDY: February 27, 2018. FINDINGS: Lungs: The lung volume is normal. Unchanged left mid and lower lung zone opacities. Pleura: Stable moderate to large left pleural effusion. Heart and Mediastinum: The cardiomediastinal silhouette and great vessels are stable. IMPRESSION 1. Stable moderate to large left pleural effusion. 2. Unchanged left mid and lower lung zone opacities likely associated atelectasis. Finalized by Steve Kang M.D. on 03/25/2018 4:29 PM. Dictated by Steve Kang M.D. on 03/25/2018 4:28 PM. Performing Organization Address City/[facility] Phone Number I AM AT RAD RESULTS * ECG-SCAN (03/25/2018 2:30 PM CDT) Narrative Performed At Ordered by an unspecified provider. in this encounter Visit Diagnoses Diagnosis Atrial fibrillation with rapid ventricular response (HCC) - Primary Atrial fibrillation Paroxysmal atrial fibrillation (HCC) Atrial fibrillation Pleural effusion, left Unspecified pleural effusion Chronic gastrointestinal bleeding Hemorrhage of gastrointestinal tract, unspecified Iron deficiency anemia due to chronic blood loss Iron deficiency anemia secondary to blood loss (chronic) GAVE (gastric antral vascular ectasia) Angiodysplasia of stomach and duodenum (without mention of hemorrhage) Acute on chronic diastolic heart failure due to coronary artery disease (HCC) DELROY (acute kidney injury) (HCC) Acute kidney failure, unspecified Coronary artery disease involving [place] coronary artery of [place] heart with angina pectoris (HCC) Hyperlipidemia, unspecified hyperlipidemia type Type 2 diabetes mellitus with other circulatory complication, 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) PAF (paroxysmal atrial fibrillation) (HCC) Atrial fibrillation Essential hypertension Unspecified essential hypertension Hypothyroidism Unspecified hypothyroidism Transfusion-dependent anemia Anemia, unspecified Pleural effusion on left Unspecified pleural effusion Left leg cellulitis Cellulitis and abscess of leg, except foot Long's esophagus in this encounter Admitting Diagnoses Diagnosis Atrial fibrillation (HCC) Atrial fibrillation in this encounter Administered Medications Action Date Dose Rate Site Medication Order MAR Action 04/03/2018 6:14 PM CDT 650 mg acetaminophen (TYLENOL) tablet 650 mg Given 650 mg, Oral, EVERY 6 HOURS PRN, Starting Ashley 03/25/18 at 1845, Until Thu04/09/18 at 0003, Pain non-opioid: may be used alone or in combination with opioid analgesia, TOTAL ACETAMINOPHEN DOSE NOT TO EXCEED 4GM DAILY, 650 mg Given 04/01/2018 8:26 AM CDT 650 mg Given 03/30/2018 12:46 PM CDT 03/28/2018 9:29 PM CDT 500 mg amoxicillin (AMOXIL) capsule 500 mg Given 500 mg, Oral, THREE TIMES DAILY, First dose on Thu03/26/18 at 1500, Until Discontinued, For 10 days, 500 mg Given 03/28/2018 3:29 PM CDT 500 mg Given 03/28/2018 9:54 AM CDT 04/08/2018 10:01 AM CDT 81 mg aspirin chewable tablet 81 mg Given 81 mg, Oral, DAILY, First dose on [place] 03/25/18 at 1900, Until Discontinued 81 mg Given 04/07/2018 8:48 AM CDT 81 mg Given 04/06/2018 9:28 AM CDT 04/01/2018 9:05 PM CDT 500 mg calcium carbonate (TUMS) chew tablet 500 Given mg 500 mg, Oral, ONCE, 1 dose, [place] 04/01/18 at 2015, Each tab delivers 200mg elemental calcium., 04/04/2018 3:32 AM CDT 500 mg calcium carbonate (TUMS) chew tablet 500 Given mg 500 mg, Oral, ONCE, 1 dose, 04/04/18 at 0330, Each tab delivers 200mg elemental calcium., 04/08/2018 10:02 AM CDT 10 mg cetirizine (ZYRTEC) tablet 10 mg Given 10 mg, Oral, EVERY MORNING, First dose on Ashley 03/25/18 at 1900, Until Discontinued 10 mg Given 04/07/2018 8:48 AM CDT 10 mg Given 04/06/2018 9:29 AM CDT 03/31/2018 5:49 PM CDT 250 mg chlorothiazide injection 250 mg Given 250 mg, Intravenous, ONCE, 1 dose, 03/31/18 at 1630 04/01/2018 1:33 AM CDT 250 mg chlorothiazide injection 250 mg Given 250 mg, Intravenous, ONCE, 1 dose, [place] 04/01/18 at 0000 04/02/2018 4:29 PM CDT 250 mg chlorothiazide injection 250 mg Given 250 mg, Intravenous, ONCE, 1 dose, Thu04/02/18 at 1615 04/02/2018 8:45 AM CDT 500 mg chlorothiazide injection 500 mg Given 500 mg, Intravenous, ONCE, 1 dose, 04/02/18 at 0815 04/03/2018 10:27 AM CDT 500 mg chlorothiazide injection 500 mg Given 500 mg, Intravenous, ONCE, 1 dose, 04/03/18 at 0945 03/30/2018 9:06 AM CDT 5 mg/hr 5 mL/hr diltiazem (cardIZEM) 125 mg in sodium Given - New chloride 0.9% (NS) 125 mL IV drip (std Bag conc) 5-15 mg/hr (5-15 mL/hr) 125 mL, at 5-15 mL/hr, Intravenous, TITRATE DIRECTED , Starting 03/28/18 at 1115, Until Thu03/30/18 at 1029, Initiate at 10 mg/hr Titrate to keep at: HR 60 to 100 Call MD if Diltiazem 5 mg/hr or less and patient able to tolerate oral medications. Std Conc: 1mg/mL., 5 mg/hr 5 mL/hr Dose/Rate Change 03/30/2018 3:30 AM CDT 10 mg/hr 10 mL/hr Infusion Restarted 03/29/2018 9:59 PM CDT 04/02/2018 7:31 AM CDT 45 mg diltiazem (cardIZEM) tablet 45 mg Given 45 mg, Oral, EVERY 6 HOURS, First dose on Thu03/30/18 at 1100, Until Discontinued 45 mg Given 04/01/2018 11:56 PM CDT 45 mg Given 04/01/2018 5:54 PM CDT 04/08/2018 10:01 AM CDT 180 mg diltiazem CD (cardIZEM CD) capsule 180 Given mg 180 mg, Oral, DAILY, First dose on Thu04/02/18 at 1300, Until Discontinued 180 mg Given 04/07/2018 8:49 AM CDT 180 mg Given 04/06/2018 9:33 AM CDT 04/07/2018 9:23 PM CDT 25 mg diphenhydrAMINE (BENADRYL) capsule 25 mg Given 25 mg, Oral, ONCE, 1 dose, Thu04/07/18 at 2030 04/05/2018 5:01 PM CDT 200 mg docusate (COLACE) capsule 200 mg Given 200 mg, Oral, ONCE, 1 dose, Thu04/05/18 at 1700, For colonoscopy prep, 04/03/2018 6:14 PM CDT 100 mg doxycycline (VIBRAMYCIN) tablet 100 mg Given 100 mg, Oral, TWICE DAILY, 12 doses, First dose on Thu03/29/18 at 0930, Last dose on Thu04/03/18 at 1900, NURSING: Please educate patient and document: Give 1 hour before or 2 hours after meals. If patient is receiving tube feedings, hold tube feedings 1 hour before and 2 hours after dose. Do not give within 2 hours of antacids, magnesium, calcium, iron, zinc, or vitamins containing these minerals., 100 mg Given 04/03/2018 6:34 AM CDT 100 mg Given 04/02/2018 7:23 PM CDT 03/26/2018 12:03 PM CDT 25 mcg fentaNYL citrate PF (SUBLIMAZE) Given injection 50 mcg 50 mcg, Intravenous, ONCE, 1 dose, Thu03/26/18 at 1045 03/26/2018 12:15 PM CDT 25 mcg fentaNYL citrate PF (SUBLIMAZE) Given injection INTRA-PROCEDURE MED, Starting Thu03/26/18 at 1213, Until Thu03/26/18 at 1215 50 mcg Given 03/26/2018 12:11 PM CDT 04/08/2018 10:01 AM CDT 1 mg folic acid (FOLVITE) tablet 1 mg Given 1 mg, Oral, DAILY, First dose on [place] 03/25/18 at 1900, Until Discontinued 1 mg Given 04/07/2018 8:49 AM CDT 1 mg Given 04/06/2018 9:29 AM CDT 03/27/2018 6:05 PM CDT 5 mg/hr 0.5 mL/hr furosemide (LASIX) 500 mg in 50 mL IV Given - New drip syr (max conc) Bag Intravenous, 5 mg/hr (0.5 mL/hr), 50 mL, at 0.5 mL/hr, CONTINUOUS, Starting Thu03/26/18 at 1415, Until 03/28/18 at 1004, Initiate at 5 mg/hr Titrate to keep: Do NOT titrate Max Conc=10mg/ml PROTECT FROM LIGHT - - If medication is in a syringe, the Alaris syringe module MUST be used. DO NOT administer by IV push. - -, 5 mg/hr 0.5 mL/hr Given - New Bag 03/26/2018 4:30 PM CDT 04/05/2018 7:28 AM CDT 10 mg/hr 1 mL/hr furosemide (LASIX) 500 mg in 50 mL IV Dose/Rate drip syr (max conc) Verify Intravenous, 10 mg/hr (1 mL/hr), 50 mL, at 1 mL/hr, CONTINUOUS, Starting [place] 04/01/18 at 0930, Until 04/05/18 at 1041, Initiate at 5 mg/hr Titrate to keep: Do NOT titrate Max Conc=10mg/ml PROTECT FROM LIGHT - - If medication is in a syringe, the Alaris syringe module MUST be used. DO NOT administer by IV push. - -, 10 mg/hr 1 mL/hr Given - New Bag 04/04/2018 12:32 PM CDT 10 mg/hr 1 mL/hr Dose/Rate Verify 04/04/2018 8:00 AM CDT 04/05/2018 11:18 AM CDT 100 mg furosemide (LASIX) injection 100 mg Given 100 mg, Intravenous, ONCE, 1 dose, 04/05/18 at 1045, PROTECT FROM LIGHT, 03/25/2018 9:32 PM CDT 40 mg furosemide (LASIX) injection 40 mg Given 40 mg, Intravenous, ONCE, 1 dose, [facility] 03/25/18 at 1900, PROTECT FROM LIGHT, 03/31/2018 9:10 AM CDT 40 mg furosemide (LASIX) injection 40 mg Given 40 mg, 4 mL, Intravenous, ONCE, 1 dose, [facility] 03/31/18 at 0915, PROTECT FROM LIGHT, 03/31/2018 2:38 PM CDT 40 mg furosemide (LASIX) injection 40 mg Given 40 mg, Intravenous, ONCE, 1 dose, [facility] 03/31/18 at 1400, PROTECT FROM LIGHT, 04/01/2018 12:56 AM CDT 40 mg furosemide (LASIX) injection 40 mg Given 40 mg, Intravenous, ONCE, 1 dose, [facility] 04/01/18 at 0000, PROTECT FROM LIGHT, 04/01/2018 5:16 PM CDT 60 mg furosemide (LASIX) injection 60 mg Given 60 mg, Intravenous, ONCE, 1 dose, [facility] 04/01/18 at 1530, Give the first 60 mg, then give the 2nd 60 mg 15 minutes afterwards, for a total dose of 120 mg PROTECT FROM LIGHT, 04/01/2018 5:37 PM CDT 60 mg furosemide (LASIX) injection 60 mg Given 60 mg, Intravenous, ONCE, 1 dose, [facility] 04/01/18 at 1545, Give 15 minutes after the first 60 mg, for a total dose of 120 mg PROTECT FROM LIGHT, 04/06/2018 6:45 AM CDT 60 mg furosemide (LASIX) injection 60 mg Given 60 mg, Intravenous, ONCE, 1 dose, [facility] 04/06/18 at 0630, PROTECT FROM LIGHT, 04/01/2018 11:53 AM CDT 80 mg furosemide (LASIX) injection 80 mg Given 80 mg, 8 mL, Intravenous, ONCE, 1 dose, [facility] 04/01/18 at 0930, PROTECT FROM LIGHT, 03/29/2018 8:37 AM CDT 20 mg furosemide (LASIX) tablet 20 mg Given 20 mg, Oral, TWICE DAILY, First dose on 03/28/18 at 1700, Until Discontinued, Hold 1115 dose on 03/28/18. Start giving at 1700., 20 mg Given 03/28/2018 5:00 PM CDT 04/05/2018 7:28 AM CDT 1,570 Units/hr 19.6 mL/hr heparin (porcine) 20,000 Units in Dose/Rate dextrose 5% (D5W) 250 mL IV infusion Verify (dbl conc) 250 mL, at 0-25 mL/hr, Intravenous, TITRATE DIRECTED , Starting Thu04/02/18 at 0800, Until Thu04/06/18 at 1407, Weight-Based Heparin Protocol (dbl conc - fluid restricted patients) - See separate order for Initial IV bolus (if ordered). - Initial IV infusion 15 units/kg/hr. Initial IV infusion not to exceed 1700 units/hr. - Follow heparin infusion scale - WITH ADJUSTMENT BOLUS for subsequent bolus and rate changes (see separate bolus order). Heparin Infusion Scale - WITH ADJUSTMENT BOLUS, =aPTT Adj Bolus Dose Pause Infusion Infusion Rate Repeat (secs) (units/kg) (minutes) (units/hr) <65 40 0 Increase 200 units/hr in 6 hours 65-74 20 0 Increase 100 units/hr in 6 hours 75-120 0 0 No Change in 6 hours/qAM* 121-129 0 60 Decrease 100 units/hr in 6 hours 130-150 0 90 Decrease 200 units/hr in 6 hours >150 0 90 Decrease 200 units/hr ++ * After 2 consecutive therapeutic aPTT, go to q AM ++ After 90 minutes, restart heparin at reduced rate AND draw an aPTT. If aPTT remains greater than 120 follow protocol (pause infusion for specified time then decrease infusion rate per protocol), if aPTT is 120 or less continue with reduced rate. Redraw aPTT in 6 hrs and follow protocol. ====Dbl conc=80units/mL. NOTE: This is a HIGH ALERT Medication., 1,570 Units/hr 19.6 mL/hr Given - New Bag 04/05/2018 1:17 AM CDT 1,570 Units/hr 19.6 mL/hr Dose/Rate Verify 04/04/2018 7:40 PM CDT 04/02/2018 7:58 AM CDT 1,570 Units/hr 39.3 mL/hr heparin (porcine) 20,000 units/D5W 500 Infusion mL infusion (std conc)(premade) Restarted 0-2,000 Units/hr (0-50 mL/hr) 500 mL, at 0-50 mL/hr, Intravenous, TITRATE DIRECTED , Starting Ashley 04/01/18 at 2300, Until Thu04/02/18 at 0752, Weight-Based Heparin Protocol - See separate order for Initial IV bolus (if ordered) - Initial IV infusion 15 units/kg/hr. Initial IV infusion not to exceed 1,700 units/hr. - Follow heparin infusion scale - WITH ADJUSTMENT BOLUS for subsequent bolus and rate changes (see separate order). Heparin Infusion Scale - WITH ADJUSTMENT BOLUS aPTT Adj Bolus Dose Pause Infusion Infusion Rate Repeat (secs) (units/kg) (minutes) (units/hr) <65 40 0 Increase 200 units/hr in 6 hours 65-74 20 0 Increase 100 units/hr in 6 hours 75-120 0 0 No Change in 6 hours/qAM* 121-129 0 60 Decrease 100 units/hr in 6 hours 130-150 0 90 Decrease 200 units/hr in 6 hours >150 0 90 Decrease 200 units/hr ++ * After 2 consecutive therapeutic aPTT, go to q AM ++ After 90 minutes, restart heparin at reduced rate AND draw an aPTT. If aPTT remains greater than 120 follow protocol (pause infusion for specified time then decrease infusion rate per protocol), if aPTT is 120 or less continue with reduced rate. Redraw aPTT in 6 hrs and follow protocol. ====NOTE: This is a HIGH ALERT Medication., 1,670 Units/hr 41.8 mL/hr Given - New Bag 04/01/2018 11:32 PM CDT 04/01/2018 11:33 PM CDT 7,500 Units heparin (porcine) BOLUS for continuous Given inf (bag) 7,500 Units 7,500 Units, Intravenous, ONCE, 1 dose, [place] 04/01/18 at 2300, INITIAL BOLUS for heparin drip -- Weight-Based Heparin Protocol - Initial IV bolus (from bag): 70 units/kg - Not to exceed 7500 units - Administer initial bolus dose via pump from infusion bag. NOTE: This is a HIGH ALERT Medication., 04/01/2018 9:12 PM CDT 5,000 Units Abdominal Tissue heparin (porcine) PF syringe 5,000 Units Given 5,000 Units, Subcutaneous, EVERY 8 HOURS, First dose on Thu03/30/18 at 1400, Until Discontinued, NOTE: This is a HIGH ALERT Medication., 5,000 Units Abdominal Tissue Given 04/01/2018 1:54 PM CDT 5,000 Units Abdominal Tissue Given 04/01/2018 6:28 AM CDT 04/07/2018 8:20 PM CDT 25 mg hydrOXYzine (ATARAX) tablet 25 mg Given 25 mg, Oral, THREE TIMES DAILY PRN, Starting Thu03/29/18 at 0642, Until Thu04/09/18 at 0003, Itching PO 25 mg Given 04/06/2018 9:25 PM CDT 25 mg Given 04/06/2018 5:58 AM CDT 04/08/2018 10:04 AM CDT 4 Units Arm, Right insulin aspart U-100 (NOVOLOG FLEXPEN) Given injection PEN 0-14 Units 0-14 Units, Subcutaneous, BEFORE MEALS AND AT BEDTIME, First dose on Thu03/28/18 at 1100, Until Discontinued, -POC glucose 140-180mg/dL at 07, 11, 17 administer 2 units insulin, at 21, 03* administer 0 units. -POC glucose 181-220mg/dL at 07, 11, 17 administer 4 units insulin, at , * administer 2 units. -POC glucose 221-260mg/dL at administer 6 units insulin, at , * administer 4 units. -POC glucose 261-300mg/dL at administer 8 units insulin, at , * administer 6 units. -POC glucose 301-350mg/dL at administer 10 units insulin, at , * administer 8 units. -POC glucose 351-400mg/dL at administer 12 units insulin, at , * administer 10 units. -POC glucose >400mg/dL at administer 14 units insulin, at * administer 12 units. *only if ordered 5x's daily For POCT glucose >350mg/dL give correction bolus and recheck POCT glucose in 2 hours. If POCT glucose at 2 hours >300mg/dL call physician for further orders. For patients who are not eating meals, continue to administer the appropriate correction factor. NOTE: This is a HIGH ALERT Medication., Dispense pens manually with initial order and then upon request. DO NOT uncheck "Do not dispense", 8 Units Arm, Right Given 04/07/2018 6:09 PM CDT 8 Units Abdominal Tissue Given 04/06/2018 6:06 PM CDT 03/27/2018 10:01 AM CDT 2 Units Arm, Right insulin aspart U-100 (NOVOLOG FLEXPEN) Given injection PEN 0-7 Units 0-7 Units, Subcutaneous, BEFORE MEALS AND AT BEDTIME, First dose on Thu03/26/18 at 0700, Until Discontinued, -POC glucose 140-180mg/dL at administer 1 unit insulin, at , * administer 0 units. -POC glucose 181-220mg/dL at administer 2 units insulin, at , * administer 1 unit. -POC glucose 221-260mg/dL at administer 3 units insulin, at , * administer 2 units. -POC glucose 261-300mg/dL at administer 4 units insulin, at , * administer 3 units. -POC glucose 301-350mg/dL at administer 5 units insulin, at , * administer 4 units. -POC glucose 351-400mg/dL at , , 17 administer 6 units insulin, at 21, 03* administer 5 units. -POC glucose >400mg/dL at , , 17 administer 7 units insulin, at 21, 03* administer 6 units. *only if ordered 5x's daily For POCT glucose >350mg/dL give correction bolus and recheck POCT glucose in 2 hours. If POCT glucose at 2 hours >300mg/dL call physician for further orders. For patients who are not eating meals, continue to administer the appropriate correction factor. NOTE: This is a HIGH ALERT Medication., Dispense pens manually with initial order and then upon request. DO NOT uncheck "Do not dispense", 2 Units Arm, Right Given 03/26/2018 9:31 PM CDT 1 Units Arm, Left Given 03/26/2018 4:02 PM CDT 03/25/2018 9:25 PM CDT 4 Units Arm, Right insulin aspart U-100 (NOVOLOG FLEXPEN) Given injection PEN 4 Units 4 Units, Subcutaneous, THREE TIMES DAILY WITH MEALS, First dose on Ashley 03/25/18 at 2000, Until Discontinued, Give scheduled doses of Insulin Aspart with meals/food. NOTE: Rapid acting insulins should be given with food/meal. Use caution when patient is NPO. NOTE: This is a HIGH ALERT Medication., 03/27/2018 11:21 AM CDT 14 Units Arm, Left insulin NPH (HUMULIN N KwikPen) Given injection PEN 14 Units 14 Units, Subcutaneous, DAILY, First dose on Thu03/26/18 at 0800, Until Discontinued, NOTE: This is a HIGH ALERT Medication., 04/08/2018 10:05 AM CDT 18 Units Arm, Right insulin NPH (HUMULIN N KwikPen) Given injection PEN 18 Units 18 Units, Subcutaneous, DAILY, First dose on Thu03/29/18 at 0800, Until Discontinued, NOTE: This is a HIGH ALERT Medication., 18 Units Arm, Left Given 04/05/2018 9:38 AM CDT 18 Units Arm, Left Given 04/04/2018 8:27 AM CDT 03/25/2018 5:16 PM CDT 1,000 mL lactated ringers infusion Given - New 1,000 mL, 1,000 mL, Intravenous, BOLUS, Bag 1 dose, [place] 03/25/18 at 1715 04/07/2018 11:49 AM CDT lactated ringers infusion Given - New 1,000 mL, 1,000 mL, Intravenous, at 20 Bag mL/hr, CONTINUOUS, Starting Thu04/07/18 at 1115, Until Thu04/07/18 at 1714 1,000 mL 20 mL/hr Given - New Bag 04/07/2018 11:12 AM CDT 04/08/2018 5:39 AM CDT 175 mcg levothyroxine (SYNTHROID) tablet 175 mcg Given 175 mcg, Oral, DAILY 30MIN BEFORE BREAKFAST, First dose on Thu03/26/18 at 0630, Until Discontinued, Give 1 hour before a meal. If patient is receiving tube feedings, hold tube feed 1hr before and 1hr after dose., 175 mcg Given 04/07/2018 6:12 AM CDT 175 mcg Given 04/06/2018 5:58 AM CDT 03/31/2018 8:24 PM CDT 0.5 mg LORazepam (ATIVAN) injection 0.5 mg Given 0.5 mg, Intravenous, ONCE, 1 dose, Thu03/31/18 at 2000, PROTECT FROM LIGHT, 03/30/2018 9:14 PM CDT 1 mg LORazepam (ATIVAN) tablet 1 mg Given 1 mg, Oral, ONCE, 1 dose, Thu03/30/18 at 1530 04/05/2018 6:36 PM CDT 296 mL magnesium citrate oral solution 296 mL Given 296 mL, Oral, ONCE, 1 dose, 04/05/18 at 1700, Until clear. For colonoscopy prep, 04/06/2018 4:30 PM CDT 296 mL magnesium citrate oral solution 296 mL Given 296 mL, Oral, ONCE, 1 dose, Thu04/06/18 at 1700 04/08/2018 10:01 AM CDT 400 mg magnesium oxide (MAG-OX) tablet 400 mg Given 400 mg, Oral, TWICE DAILY, First dose on Thu04/02/18 at 0900, Until Discontinued, Delivers 241.3mg elemental magnesium per tab, 400 mg Given 04/07/2018 8:20 PM CDT 400 mg Given 04/07/2018 8:49 AM CDT 04/01/2018 12:55 PM CDT 1 g 100 mL/hr magnesium sulfate 1 g/D5W 100 mL IVPB Given - New 1 g, Intravenous, 100 mL, Administer Bag over 1 Hours, ONCE, 1 dose, [facility] 04/01/18 at 1245, Each 1gm delivers 8.1 mEq Magnesium., 04/04/2018 1:23 PM CDT 2 g magnesium sulfate 4 g/50 mL IVPB Given - New 2 g, Intravenous, 50 mL, Administer over Bag 4 Hours, ONCE, 1 dose, [place] 04/04/18 at 1200, Each 1gm delivers 8.1 mEq Magnesium, 04/07/2018 8:20 PM CDT 5 mg melatonin tablet 5 mg Given 5 mg, Oral, AT BEDTIME DAILY, First dose on Thu04/01/18 at 2245, Until Discontinued 5 mg Given 04/06/2018 9:26 PM CDT 5 mg Given 04/05/2018 9:02 PM CDT 04/08/2018 10:01 AM CDT 100 mg metoprolol tartrate (LOPRESSOR) tablet Given 100 mg 100 mg, Oral, TWICE DAILY, First dose on Thu03/25/18 at 2100, Until Discontinued, Hold for systolic BP < 100, HR < 60, 100 mg Given 04/07/2018 8:19 PM CDT 100 mg Given 04/07/2018 8:48 AM CDT 03/26/2018 12:05 PM CDT 2 mg midazolam (VERSED) injection 1-2 mg Given 1-2 mg, Intravenous, ONCE, 1 dose, Thu03/26/18 at 1045 03/26/2018 12:13 PM CDT 1 mg midazolam (VERSED) injection Given INTRA-PROCEDURE MED, Starting Thu03/26/18 at 1209, Until Thu03/26/18 at 1213 1 mg Given 03/26/2018 12:08 PM CDT 04/08/2018 10:02 AM CDT nystatin (NYSTOP) topical powder Given Topical, TWICE DAILY, First dose on Thu03/26/18 at 0900, Until Discontinued, Apply to abdomen, Given 04/05/2018 9:05 PM CDT Given 04/04/2018 8:13 PM CDT 04/08/2018 11:16 AM CDT 8 mg ondansetron (ZOFRAN) tablet 8 mg Given 8 mg, Oral, EVERY 8 HOURS PRN, Starting Thu03/25/18 at 1845, Until Thu04/09/18 at 0003, Nausea/Vomiting PO 8 mg Given 04/05/2018 7:43 PM CDT 8 mg Given 04/05/2018 11:18 AM CDT 04/07/2018 8:20 PM CDT [address] (PROTONIX) tablet 80 mg Given 80 mg, Oral, DAILY, First dose on Ashley 03/25/18 at 2100, Until Discontinued, Do not crush or chew tablet., 80 mg Given 04/06/2018 9:26 PM CDT 80 mg Given 04/05/2018 9:02 PM CDT 03/31/2018 11:58 AM CDT 1.5 Diluted mL perflutren lipid microspheres (DEFINITY) Given injection 1-20 Diluted mL 1-20 Diluted mL, Intravenous, ONCE, 1 dose, 03/31/18 at 1145, NOTE: This is a HIGH ALERT Medication., MAC Procedure Area Only - Medications 04/02/2018 8:09 AM CDT 40 mEq potassium chloride SR (K-DUR) tablet 40 Given mEq 40 mEq, Oral, ONCE, 1 dose, 04/02/18 at 0730, - Tablet may be dispersed in water. Place tab in 30 mL of water for 40-60 seconds. - Gently swirl until fully dispersed. If particles remain after admin, add small amount of water and admin remaining content. - DO NOT CRUSH. Tablet may be split in half. , 04/03/2018 9:04 AM CDT 60 mEq potassium chloride SR (K-DUR) tablet 60 Given mEq 60 mEq, Oral, ONCE, 1 dose, 04/03/18 at 0700, - Tablet may be dispersed in water. Place tab in 30 mL of water for 40-60 seconds. - Gently swirl until fully dispersed. If particles remain after admin, add small amount of water and admin remaining content. - DO NOT CRUSH. Tablet may be split in half. , 04/04/2018 8:00 AM CDT 60 mEq potassium chloride SR (K-DUR) tablet 60 Given mEq 60 mEq, Oral, ONCE, 1 dose, 04/04/18 at 0645, - Tablet may be dispersed in water. Place tab in 30 mL of water for 40-60 seconds. - Gently swirl until fully dispersed. If particles remain after admin, add small amount of water and admin remaining content. - DO NOT CRUSH. Tablet may be split in half. , 04/05/2018 6:38 AM CDT 60 mEq potassium chloride SR (K-DUR) tablet 60 Given mEq 60 mEq, Oral, ONCE, 1 dose, Thu04/05/18 at 0630, - Tablet may be dispersed in water. Place tab in 30 mL of water for 40-60 seconds. - Gently swirl until fully dispersed. If particles remain after admin, add small amount of water and admin remaining content. - DO NOT CRUSH. Tablet may be split in half. , 04/05/2018 5:38 PM CDT 40 mEq potassium chloride SR (K-DUR) tablet 60 Given mEq 60 mEq, Oral, ONCE, 1 dose, Thu04/05/18 at 1700, - Tablet may be dispersed in water. Place tab in 30 mL of water for 40-60 seconds. - Gently swirl until fully dispersed. If particles remain after admin, add small amount of water and admin remaining content. - DO NOT CRUSH. Tablet may be split in half. , pramoxine/zinc oxide (TRONOLANE) 1% / 5% topical cream Rectal, DAILY PRN, Starting Thu04/07/18 at 1437, Until Thu04/09/18 at 0003, Burning, Itching Topical, Other..., For Hemorrhoids 03/29/2018 12:55 AM CDT 5 mg prochlorperazine (COMPAZINE) injection 5 Given mg 5 mg, Intravenous, ONCE, 1 dose, Thu03/29/18 at 0100, PROTECT FROM LIGHT -- May be given undiluted, or each 5mg may be diluted with 9 mL of NS to facilitate titration., 04/07/2018 8:48 AM CDT 2 tablets senna/docusate (SENOKOT-S) tablet 2 Given tablet 2 tablet, Oral, TWICE DAILY, First dose on Thu03/25/18 at 2100, Until Discontinued, Hold for loose stools, 2 tablets Given 04/06/2018 9:26 PM CDT 2 tablets Given 04/06/2018 9:28 AM CDT 04/05/2018 8:22 AM CDT 1 g sucralfate (CARAFATE) tablet 1 g Given 1 g, Oral, FOUR TIMES DAILY, First dose on Thu03/25/18 at 1900, Until Discontinued, Can be made into a slurry by placing 1 Sucralfate tablet in 30 mL water and allow to stand for 5 minutes. , 1 g Given 04/02/2018 8:54 PM CDT 1 g Given 03/29/2018 5:23 PM CDT 04/08/2018 10:01 AM CDT 40 mg torsemide(+) (DEMADEX) tablet 40 mg Given 40 mg, Oral, DAILY, First dose on [place] 04/08/18 at 0945, Until Discontinued 04/08/2018 5:29 PM CDT 50 mg traMADol (ULTRAM) tablet 50 mg Given 50 mg, Oral, EVERY 6 HOURS PRN, Starting [place] 03/25/18 at 1845, Until 04/09/18 at 0003, Pain PO 50 mg Given 04/08/2018 1:24 AM CDT 50 mg Given 04/05/2018 3:41 PM CDT 04/04/2018 8:12 PM CDT 2.5 mg warfarin (COUMADIN) tablet 2.5 mg Given 2.5 mg, Oral, AT BEDTIME DAILY, First dose on 04/03/18 at 2100, Until Discontinued, NURSING: Provide patient with warfarin education leaflet and video. Do not give with cranberry juice. NOTE: This is a HIGH ALERT Medication., 2.5 mg Given 04/03/2018 9:18 PM CDT in this encounter
--- NOTE | 2018-05-30 06:50 | Diagnostic Imaging Report ---
Indication: Pelvic pain after fall. Comparison: None. Discussion: Two views of the pelvis were obtained. 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 There is no displaced fracture identified on these 2 submitted views. No radiopaque foreign body. Soft tissues are unremarkable. Impression: 1. Negative pelvis. Dictated by: Dictated on workstation # [id number]
--- OUTSIDE RECORDS SUMMARY | 2018-05-30 06:54 | XMS REPORT | Encounter Summary ---
Author Author [facility] Organization [facility] Address Unknown Phone Unavailable Care Team Providers Care Trade Manager Name Role Phone Carla Wilson MD PCP Naima Field MD Unavailable Wninie Jorge MD Unavailable Encounter Details Care Team Description Date Type Department Graec Alberts, FINAL BLOCK PRESS OPERATOR [address] [place] [address] 03/29/2018 Anesthesia Gastrointenstinal Event Endoscopy [address] [place], [place] [id number] Anesthesia Record Responsible Anesthesiologist Anesthesia Start Time Anesthesia Stop Time Procedure Name Ty Veras MD 03/29/18 1054 03/29/18 1131 ESOPHAGOGASTRODUODENOSCOP Y (N/A ) Date Time Event Comment 1023 1027 AN Equip Check 1054 Anes Start 1054 Quick Note Pt on 3 liters oxygen, has chest tube in place to suction on lt lateral side, and cardizem drip @ 5 mg/hr continued throughout case. ETCO2 monitoring via nasal cannula so accuracy may be affected. 1055 Out of Pre Procedure 1055 In Room 1058 An Start Data 1058 Start Supplemental O2 1106 Anesthesia Ready 1108 Proc Start 1125 an stop data 1130 Handoff to RN Pt breathing spontaneously on 3 liters oxygen via nasal cannula. BP running soft. Anesthesiology Dr. Leach notified. Will continue to monitor. I completed my SBAR handoff to the receiving nurse. 1131 An Stop Meds Name Total fentaNYL PF (SUBLIMAZE) injection 25 mcg lidocaine (2%) 200 mg/10mL Injection 100 mg syringe propofol (DIPRIVAN) infusion 139.96 mg ketamine (KETALAR) 10 mg/mL injection 30 mg phenylephrine (MAGDIEL-SYNEPHRINE) 0.1 mg/mL 400 mcg injection (SYRINGE) sodium chloride 0.9 % infusion 200 mL * Name O2 N2O Inspired N2O * No blood administrations on file. Removal Type Details Placement Wounds 02/16/18; 183; Chest; Surgical 02/16/181830 by Gregg, (NOT for Incision; silverlon and wound vac (1 THOMPSON Steward Pressure sponge) Injuries) Wounds 02/16/18; 183; Leg; Surgical Incision; 02/16/18 183 by Gregg, (NOT for 4x4 and covaderm THOMPSON Steward Pressure Injuries) Wounds 02/18/18; 09; Anterior; Abdomen; CT 02/18/18 0929 by Nohemy, (NOT for exit x3 THOMPSON Gracia Pressure Injuries) Wounds 02/25/18; 0930; Left; Back; CT exit 02/25/18 0930 by Elías, (NOT for THOMPSON Serna Pressure Injuries) 04/07/18 1257 by Leida Bliss CRNA ETT 02/16/18; 1240; Ventilated by mask with 02/16/18 1240 by Janice oral airway (2); Direct laryngoscopy, PRIMO Hodges Stylet; Single-Lumen, Cuffed; 7.5mm; Mac; 3; Oral; 1-Full view of the glottis; 1 insertion attempt; Auscultation, ETCO2 Detector; 21 centimeters; atraumatic with ease; 04/07/18; 1257 03/31/18 1000 by Erendira Howell RN Cook 03/26/18; 1216; Left, Mid; Pleural; 8 03/26/18 1216 by Ward Catheter FR; Correct Procedure, Correct Patient, Sri Correct Patient Position, Correct Equipment / Implants Available, Marking Waived, Not Side Specific; 03/31/18; 1000 (removed by CTS.) 03/29/182114 by Sri Karimi RN Peripheral 03/26/18; 1255; IV Therapy; L; Anterior; 03/26/18 1255 by Juvencio IV Upper Arm (cephalic); 20 G; No; THOMPSON Deluca Ultrasound; 1; 2.25 inches (AccuCath); Symptomatic (phlebitis, pain, leaking, infiltration); 03/29/18; [id number]/29/182114 by Sri Karimi RN Peripheral 03/26/18; 1630; IV Therapy; L; Inner; 03/26/18 163 by Demetris, IV Forearm; 22 G; No; 1; 1 inches; THOMPSON Steele Symptomatic (phlebitis, pain, leaking, infiltration); 03/29/18; 2114 in this encounter Social History Date Tobacco [...] Dose Rate Site Medication Order MAR Action 03/29/2018 10:57 AM CDT 25 mcg fentaNYL citrate PF (SUBLIMAZE) Given injection INTRA-PROCEDURE MED, Starting 03/29/18 at 1057, Until Thu03/29/18 at 1134, Pain Injectable, Anesthesia Intra-op 03/29/2018 11:05 AM CDT 10 mg ketamine (KETALAR) injection Given INTRA-PROCEDURE MED, Starting Thu03/29/18 at 1100, Until Thu03/29/18 at 1134, Anesthesia Intra-op 20 mg Given 03/29/2018 11:00 AM CDT 03/29/2018 10:57 AM CDT 100 mg lidocaine (PF) injection Given INTRA-PROCEDURE MED, Starting Thu03/29/18 at 1057, Until Thu03/29/18 at 1138, Anesthesia Intra-op 03/29/2018 11:27 AM CDT 100 mcg phenylephrine in NS injection syringe Given INTRA-PROCEDURE MED, Starting Thu03/29/18 at 1112, Until Thu03/29/18 at 1134, Symptomatic Hypotension, Anesthesia Intra-op 100 mcg Given 03/29/2018 11:25 AM CDT 100 mcg Given 03/29/2018 11:16 AM CDT 03/29/2018 11:12 AM CDT 40 mcg/kg/min 27.3 mL/hr propofol (DIPRIVAN) infusion Dose/Rate 20 mL, Intravenous, INTRA-PROCEDURE Change MED(CONT), Starting Thu03/29/18 at 1100, Until Thu03/29/18 at 1134, Anesthesia Intra-op 3,400 mcg Bolus 03/29/2018 11:09 AM CDT 60 mcg/kg/min 41 mL/hr Dose/Rate Change 03/29/2018 11:04 AM CDT 03/29/2018 10:53 AM CDT sodium chloride 0.9 % infusion Given - New 1,000 mL, 500 mL, Intravenous, at 20 Bag mL/hr, CONTINUOUS, Starting Thu03/29/18 at 1030, Until Thu03/31/18 at 1029, Pre-Op in this encounter
--- OUTSIDE RECORDS SUMMARY | 2018-05-30 06:54 | XMS REPORT | Encounter Summary ---
Author Author [facility] Organization [facility] Address Unknown Phone Unavailable Care Team Providers Care Test Car Driver Name Role Phone Carla Wilson MD PCP Naima Field MD Unavailable Winnie Jorge MD Unavailable Encounter Details Care Team Description Date Type Department Sole Diaz SRNA 04/07/2018 Anesthesia Gastrointenstinal Event Endoscopy [address] [place] [address] Anesthesia Record Responsible Anesthesiologist Anesthesia Start Time Anesthesia Stop Time Procedure Name Viral Lopez MD 04/07/18 1206 04/07/18 1301 COLONOSCOPY (N/A ) Date Time Event Comment 1112 1148 AN Equip Check 1205 Out of Pre Procedure 1206 Anes Start 1206 An Start Data 1206 In Room 1208 An Induction The patient was reevaluated immediately before moderate or deep sedation use and before anesthesia induction. 1213 An Intubation 1215 Anesthesia Ready 1223 Proc Start 1257 An Extubation Spont resp, to PACU with simple mask at 6L 1258 an stop data 1301 Handoff to RN I completed my SBAR handoff to the receiving nurse. 1301 An Stop Meds Name Total lidocaine (2%) 200 mg/10mL Injection 100 mg syringe ondansetron (ZOFRAN) injection 4 mg propofol (DIPRIVAN) 200 mg/ 20 mL 100 mg injection (VIAL) succinylcholine (ANECTINE) injection 100 mg (VIAL) phenylephrine (MAGDIEL-SYNEPHRINE) 0.1 mg/mL 600 mcg injection syr lactated ringers infusion 300 mL * Name O2 N2O Inspired N2O Sevoflurane Inspired Sevoflurane * No blood administrations on file. Removal Type Details Placement Wounds 02/16/18; 1831; Chest; Surgical 02/16/18 1831 by Gregg, (NOT for Incision; silverlon and wound vac (1 Nichelle RN Pressure sponge) Injuries) Wounds 02/16/18; 1831; Leg; Surgical Incision; 02/16/18 183 by Gregg, (NOT for 4x4 and covaderm Nichelle RN Pressure Injuries) Wounds 02/18/18; 0929; Anterior; Abdomen; CT 02/18/18 0929 by Nohemy, (NOT for exit x3 Samia RN Pressure Injuries) Wounds 02/25/18; 0930; Left; [...] for Tear; skin tear from bedside commode Wilfrido RN Pressure Injuries) 04/07/18 1257 by Leida Bliss CRNA ETT 02/16/18; 1240; Ventilated by mask with 02/16/18 1240 by [place] oral airway (2); Direct laryngoscopy, PRIMO Hodges Stylet; Single-Lumen, Cuffed; 7.5mm; Mac; 3; Oral; 1-Full view of the glottis; 1 insertion attempt; Auscultation, ETCO2 Detector; 21 centimeters; atraumatic with ease; 04/07/18; 1257 04/08/18 1805 by Estrella Crowder RN Peripheral 03/29/18; 2152; IV Therapy; R; Upper Arm 03/29/182152 by Sunshine , IV (cephalic); 20 G; No; Ultrasound; 1; Carey, RN 1.75 inches; 04/08/18; 1805 04/07/18 1257 by Leida Bliss CRNA ETT 04/07/18; 1208; Mask ventilation not 04/07/18 1208 by attempted (0); Direct laryngoscopy; Leida Bliss CRNA Single-Lumen, Cuffed; 7mm; Mac; 3; Oral; 1-Full view of the glottis; 1 insertion attempt; Auscultation, ETCO2 Detector; 04/07/18; 1257 in this encounter Social History Date Tobacco [...] Dose Rate Site Medication Order MAR Action 04/07/2018 11:49 AM CDT lactated ringers infusion Given - New 1,000 mL, 1,000 mL, Intravenous, at 20 Bag mL/hr, CONTINUOUS, Starting Thu04/07/18 at 1115, Until Thu04/07/18 at 1714 1,000 mL 20 mL/hr Given - New Bag 04/07/2018 11:12 AM CDT 04/07/2018 12:12 PM CDT 100 mg lidocaine (PF) injection Given INTRA-PROCEDURE MED, Starting Thu04/07/18 at 1212, Until Thu04/07/18 at 1304, Anesthesia Intra-op 04/07/2018 11:54 AM CDT 4 mg ondansetron (ZOFRAN) injection Given INTRA-PROCEDURE MED, Starting Thu04/07/18 at 1154, Until Thu04/07/18 at 1304, Nausea/Vomiting Injectable, Anesthesia Intra-op 04/07/2018 12:40 PM CDT 100 mcg phenylephrine in NS injection syringe Given INTRA-PROCEDURE MED, Starting Thu04/07/18 at 1218, Until Thu04/07/18 at 1304, Symptomatic Hypotension, Anesthesia Intra-op 200 mcg Given 04/07/2018 12:34 PM CDT 200 mcg Given 04/07/2018 12:22 PM CDT 04/07/2018 12:12 PM CDT 100 mg propofol (DIPRIVAN) injection Given INTRA-PROCEDURE MED, Starting Thu04/07/18 at 1212, Until Thu04/07/18 at 1304, Anesthesia Intra-op 04/07/2018 12:12 PM CDT 100 mg succinylcholine (ANECTINE) injection Given INTRA-PROCEDURE MED, Starting Thu04/07/18 at 1212, Until Thu04/07/18 at 1304, Anesthesia Intra-op in this encounter
--- OUTSIDE RECORDS SUMMARY | 2018-05-30 06:54 | XMS REPORT | Encounter Summary ---
Author Author [facility] Organization [facility] Address Unknown Phone Unavailable Care Team Providers Care Process Control Operator Name Role Phone Carla Wilson MD PCP Naima Field MD Unavailable Winnie Jorge MD Unavailable Reason for Visit * Reason Comments Shortness of Breath CABG x4 1 month ago, sob, in and out of afib and flutter Encounter Details Care Team Description Date Type Department Skinny Marshall MD [address] [facility] [address] [place] [address] COLONOSCOPY 04/07/2018 Surgery Gastrointenstinal Endoscopy [address] [place], [place] [id number] Social History Date Tobacco Use Types Packs/Day [...] daily. GLUCOSAMINE Take 1 tablet 0 HCL/CHONDROITIN CADLERON by mouth (GLUCOSAMINE-CHONDROITIN twice daily. PO) 02/27/2018 [...] by mouth daily. 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 LEVELER TELEMETRY STRIPS-SCAN 04/16/2018 12:49 PM CDT ECG-SCAN [...] CDT POC GLUCOSE 03/29/2018 10:32 AM CDT POC GLUCOSE 03/29/2018 8:37 AM CDT EGD [...] encounter Results * ECG-SCAN (04/24/2018 5:40 PM CHAIR INSPECTOR AND LEVELER) Narrative Performed At Ordered by an unspecified [...] Phone Number MAIN LAB [address] [place] [address] * TRANSESOPHAGEAL ECHOCARDIOGRAM (04/08/2018 4:06 PM CDT) BSA 2.19 m2 OTHER OUTSIDE LAB CV ECHO PV PRODUCT MANAGENT INTERN Marisa RN, Anesthesia Team OTHER OUTSIDE LAB Interp Only Electronics Lead Charu Golden OTHER OUTSIDE LAB Cardiology Ultrasound Siemens [id number] OTHER OUTSIDE LAB Machine TV rest pulmonary [...] from the prior study. Performing Organization Address [facility]/State[facility] Phone Number OTHER OUTSIDE LAB * POC GLUCOSE (04/08/2018 12:41 PM CDT) Glucose, POC 136 (H) 70 - 100 MG/DL [facility] MAIN LAB Performing Organization Address [facility] Phone Number [facility] MAIN LAB [address] [place] [address] * POC GLUCOSE (04/08/2018 11:56 AM CDT) Glucose, POC 147 (H) 70 - 100 MG/DL [facility] MAIN LAB Performing Organization Address [facility] Phone Number [facility] MAIN [facility] [address] [place] [address] * POC GLUCOSE (04/08/2018 8:37 AM CDT) Glucose, POC 216 (H) 70 - 100 MG/DL [facility] MAIN LAB Performing Organization Address [facility] Phone Number [facility] MAIN LAB [address] [place] [address] * MAGNESIUM (04/08/2018 5:00 AM CDT) Magnesium 2.3 1.6 - 2.6 mg/dL [facility] MAIN LAB Specimen Blood Performing Organization Address [facility] Phone Number MAIN LAB [address] [place] [address] * PTT (APTT) (04/08/2018 5:00 AM CDT) APTT 30.2Comment: NOTE NEW 20.0 - 36.0 SEC [facility] MAIN LAB REFERENCE RANGES Specimen Blood Performing Organization Address [facility] Phone Number MAIN LAB [address] [place] [address] * BASIC METABOLIC PANEL (04/08/2018 5:00 AM [...] for questions. Specimen Blood Performing Organization Address City/[facility]/Zipcode Phone Number MAIN LAB [address] [place] [address] * CBC (04/08/2018 5:00 AM CDT) White [...] 32.0 - 36.0 G/DL MAIN LAB RDW 17.8 (H) 11 - 15 % MAIN LAB Platelet Count 129 (L) 150 - 400 K/UL [facility] MAIN LAB MPV 8.8 7 - 11 FL MAIN LAB Specimen Blood Performing Organization Address [facility] Phone Number [facility] MAIN [facility] [address] [place] [address] * PROTIME INR (PT) (04/08/2018 5:00 AM CDT) INR 1.6 (H) 0.8 - 1.2 MAIN LAB Specimen Blood Performing Organization Address City/[facility]/Zipcode Phone Number [facility] MAIN LAB [address] [place] [address] * POC GLUCOSE (04/07/2018 9:00 PM CDT) Glucose, POC 157 (H) 70 - 100 MG/DL [facility] MAIN LAB Performing Organization Address [facility] Phone Number [facility] MAIN [facility] [address] [place] [address] * POC GLUCOSE (04/07/2018 5:59 PM CDT) Glucose, POC 261 (H) 70 - 100 MG/DL MAIN LAB Performing Organization Address City/[facility] Phone Number [facility] MAIN LAB [address] [place] [address] * POC GLUCOSE (04/07/2018 2:29 PM CDT) Glucose, POC 141 (H) 70 - 100 MG/DL MAIN LAB Performing Organization Address [facility] Phone Number [facility] MAIN LAB [address] [place] [address] * COLONOSCOPY (04/07/2018 12:07 PM CDT) Provation Report Patient Name: Donnie CASTILLO OTHER RESULTS Procedure Date: 04/07/2018 12:07 PM CSN: [id number] Date of : 1955 Gender: Female Attending Physician: Skinny Marshall MD Procedure: Colonoscop y Indications: Hematochezia Providers: Skinny Marshall MD (Doctor), Conner Martines MD (Fellow), Mariana Suarez RN (Nurse), Elvia River, Pre Press Operator (Pre Press Operator) Referring Physician: Felisa Sneed Medications: Monitored Anesthesia [...] City/State/Zipcode Phone Number [facility] OTHER RESULTS * POC GLUCOSE (04/07/2018 7:56 AM CDT) Glucose, POC 133 (H) 70 - 100 MG/DL [facility] MAIN LAB Performing Organization Address City/State/Zipcode Phone Number MAIN LAB [address] [place] [address] * CHEST SINGLE VIEW (04/07/2018 6:43 AM [...] on 04/07/2018 8:29 AM. Performing Organization Address City/State/Zipcode Phone Number [facility] RAD RESULTS * MAGNESIUM (04/07/2018 4:25 AM CDT) Magnesium 2.3 1.6 - 2.6 mg/dL [facility] MAIN LAB Specimen Blood Performing Organization Address City/[facility]/Zipcode Phone Number [employer] MAIN LAB [address] [place] [address] * PTT (APTT) (04/07/2018 4:25 AM CDT) APTT 29.1Comment: NOTE NEW 20.0 - 36.0 SEC [facility] MAIN LAB REFERENCE RANGES Specimen Blood Performing Organization Address City/[facility]/Zipcode Phone Number MAIN LAB [address] [place] [address] * BASIC METABOLIC PANEL (04/07/2018 4:25 AM CDT) Sodium 137 137 - 147 MMOL/L [facility] MAIN LAB Potassium 4.3 3.5 - 5.1 MMOL/L [facility] MAIN LAB Chloride 93 (L) 98 - 110 MMOL/L [facility] MAIN LAB CO2 37 (H) 21 - 30 MMOL/L [facility] MAIN LAB Anion Gap 7 3 - 12 [facility] MAIN LAB Glucose 129 (H) 70 - 100 MG/DL [facility] MAIN LAB Blood Urea Nitrogen 34 (H) 7 - 25 MG/DL [facility] MAIN LAB Creatinine 1.32 (H) 0.4 - 1.00 MG/DL [facility] MAIN LAB Calcium 10.1 8.5 - 10.6 MG/DL [facility] MAIN LAB eGFR Non 41 (L) >60 [...] for questions. Specimen Blood Performing Organization Address City/[facility]/Zipcode Phone Number MAIN LAB [address] [place] [address] * CBC (04/07/2018 4:25 AM CDT) White Blood Cells 4.4 (L) 4.5 - 11.0 K/UL [facility] MAIN LAB RBC 2.86 (L) 4.0 - 5.0 M/UL [facility] MAIN LAB Hemoglobin 9.1 (L) 12.0 - 15.0 GM/DL [facility] MAIN LAB Hematocrit 27.5 (L) 36 - 45 % [facility] MAIN LAB MCV 96.0 80 - 100 FL [facility] MAIN LAB MCH 32.0 26 - 34 PG [facility] MAIN LAB MCHC 33.3 32.0 - 36.0 G/DL [facility] MAIN LAB RDW 18.2 (H) 11 - 15 % [facility] MAIN LAB Platelet Count 130 (L) 150 - 400 K/UL [facility] MAIN LAB MPV 8.6 7 - 11 FL MAIN LAB Specimen Blood Performing Organization Address [facility] Phone Number MAIN LAB [address] [place] [address] * PROTIME INR (PT) (04/07/2018 4:25 AM CDT) INR 1.6 (H) 0.8 - 1.2 MAIN LAB Specimen Blood Performing Organization Address [facility] Phone Number MAIN LAB [address] [place] [address] * POC GLUCOSE (04/06/2018 9:06 PM CDT) Glucose, POC 165 (H) 70 - 100 MG/DL MAIN LAB Performing Organization Address [facility] Phone Number MAIN LAB [address] [place] [address] * POC GLUCOSE (04/06/2018 6:04 PM CDT) Glucose, POC 273 (H) 70 - 100 MG/DL MAIN LAB Performing Organization Address [facility] Phone Number MAIN LAB [address] [place] [address] * POC GLUCOSE (04/06/2018 11:56 AM CDT) Glucose, POC 138 (H) 70 - 100 MG/DL MAIN LAB Performing Organization Address [facility] Phone Number MAIN LAB [address] [place] [address] * POC GLUCOSE (04/06/2018 8:49 AM CDT) Glucose, POC 150 (H) 70 - 100 MG/DL MAIN LAB Performing Organization Address [facility] Phone Number MAIN LAB [address] [place] [address] * CHEST SINGLE VIEW (04/06/2018 6:30 AM [...] on 04/06/2018 9:32 AM. Performing Organization Address City/State/Zipcode Phone Number [facility] RAD RESULTS * MAGNESIUM (04/06/2018 3:00 AM CDT) Magnesium 2.0Comment: SLT HEMOLYSIS 1.6 - 2.6 mg/dL [facility] MAIN LAB Performing Organization Address City/State/Zipcode Phone Number [facility] MAIN LAB [address] [place] [address] * IRON + BINDING CAPACITY + %SAT+ FERRITIN (04/06/2018 3:00 AM CDT) Iron 23 (L)Comment: SLT HEMOLYSIS 50 - 160 MCG/DL [facility] MAIN LAB Iron Binding-TIBC 273 270 - 380 MCG/DL [facility] MAIN LAB % Saturation 8 (L) 28 - 42 % [facility] MAIN LAB Ferritin 259 (H) 10 - 200 NG/ML [facility] MAIN LAB Performing Organization Address [facility] Phone Number [facility] MAIN LAB [address] [place] [address] * FOLATE, SERUM (04/06/2018 3:00 AM CDT) Serum Folate >23.4 >3.9 NG/ML [facility] MAIN LAB Comment: SLT HEMOLYSIS NOTE NEW REFERENCE RANGES Performing Organization Address [facility] Phone Number [facility] MAIN LAB [address] [place] [address] * VITAMIN B12 (04/06/2018 3:00 AM CDT) Vitamin B12 1,234 (H) 180 - 914 PG/ML [facility] MAIN LAB Performing Organization Address [facility] Phone Number [facility] MAIN LAB [address] [place] [address] * PTT (APTT) (04/06/2018 3:00 AM CDT) APTT 20.4Comment: NOTE NEW 20.0 - 36.0 SEC [facility] MAIN LAB REFERENCE RANGES Specimen Blood Performing Organization Address [facility] Phone Number [facility] MAIN LAB [address] [place] [address] * BASIC METABOLIC PANEL (04/06/2018 3:00 AM [...] for questions. Specimen Blood Performing Organization Address City/[facility]/Zipcode Phone Number MAIN LAB [address] [place] [address] * CBC (04/06/2018 3:00 AM CDT) White [...] MAIN LAB Specimen Blood Performing Organization Address [facility] Phone Number [facility] MAIN [facility] [address] [place] [address] * PROTIME INR (PT) (04/06/2018 3:00 AM CDT) INR 1.6 (H) 0.8 - 1.2 MAIN LAB Specimen Blood Performing Organization Address City/[facility]/Zipcode Phone Number MAIN LAB [address] [place] [address] * CBC (04/05/2018 9:48 PM CDT) White Blood Cells 5.3 4.5 - 11.0 K/UL [facility] MAIN LAB RBC 2.64 (L) 4.0 - 5.0 M/UL [facility] MAIN LAB Hemoglobin 8.3 (L) 12.0 - 15.0 GM/DL [facility] MAIN LAB Hematocrit 25.7 (L) 36 - 45 % [facility] MAIN LAB MCV 97.5 80 - 100 FL MAIN LAB MCH 31.2 26 - 34 PG MAIN LAB MCHC 32.0 32.0 - 36.0 G/DL MAIN LAB RDW 18.4 (H) 11 - 15 % [facility] MAIN LAB Platelet Count 145 (L) 150 - 400 K/UL MAIN LAB MPV 8.0 7 - 11 FL MAIN LAB Specimen Blood Performing Organization Address [facility] Phone Number MAIN LAB [address] [place] [phone] * POC GLUCOSE (04/05/2018 9:00 PM CDT) Glucose, POC 185 (H) 70 - 100 MG/DL [facility] MAIN LAB Performing Organization Address [facility] Phone Number MAIN LAB [address] [place] [phone] * POC GLUCOSE (04/05/2018 4:17 PM CDT) Glucose, POC 186 (H) 70 - 100 MG/DL MAIN LAB Performing Organization Address [facility] Phone Number MAIN LAB [address] [place] [address] * PTT (APTT) (04/05/2018 2:10 PM CDT) APTT 96.5 (H)Comment: NOTE NEW 20.0 - 36.0 SEC MAIN LAB REFERENCE RANGES Specimen Blood Performing Organization Address [facility] Phone Number MAIN LAB [address] [place] [phone] * CBC (04/05/2018 2:10 PM CDT) White [...] Count 139 (L) 150 - 400 K/UL [facility] MAIN LAB MPV 8.2 7 - 11 FL [facility] MAIN LAB Specimen Blood Performing Organization Address [facility]/Zipcode Phone Number JONATHAN MAIN LAB [address] [place] [address] * POC GLUCOSE (04/05/2018 1:48 PM CDT) Glucose, POC 160 (H) 70 - 100 MG/DL [facility] MAIN LAB Performing Organization Address [facility] Phone Number [facility] MAIN [facility] [address] [place] [address] * POC GLUCOSE (04/05/2018 9:03 AM CDT) Glucose, POC 199 (H) 70 - 100 MG/DL [facility] MAIN LAB Performing Organization Address [facility] Phone Number MAIN LAB [address] [place] [phone] * CHEST SINGLE VIEW (04/05/2018 6:11 AM [...] on 04/05/2018 8:36 AM. Performing Organization Address [facility] Phone Number [facility] RESULTS * MAGNESIUM (04/05/2018 4:24 AM CDT) Magnesium 1.9 1.6 - 2.6 mg/dL [facility] MAIN LAB Performing Organization Address [facility] Phone Number MAIN LAB [address] [place] [address] * PTT (APTT) (04/05/2018 4:24 AM CDT) APTT 111.3 (H)Comment: NOTE NEW 20.0 - 36.0 SEC [facility] MAIN LAB REFERENCE RANGES Specimen Blood Performing Organization Address [facility] Phone Number MAIN LAB [address] [place] [address] * BASIC METABOLIC PANEL (04/05/2018 4:24 AM [...] for questions. Specimen Blood Performing Organization Address City/[facility] Phone Number MAIN LAB [address] [place] [address] * CBC (04/05/2018 4:24 AM CDT) White Blood Cells 4.3 (L) 4.5 - 11.0 K/UL MAIN LAB RBC 2.54 (L) 4.0 - 5.0 M/UL MAIN LAB Hemoglobin 8.0 (L) 12.0 - 15.0 GM/DL MAIN LAB Hematocrit 24.9 (L) 36 - 45 % MAIN LAB MCV 98.3 80 - 100 FL MAIN LAB MCH 31.7 26 - 34 PG MAIN LAB MCHC 32.3 32.0 - 36.0 G/DL MAIN LAB RDW 18.7 (H) 11 - 15 % MAIN LAB Platelet Count 128 (L) 150 - 400 K/UL MAIN LAB MPV 8.2 7 - 11 FL MAIN LAB Specimen Blood Performing Organization Address [facility] Phone Number MAIN LAB [address] [place] [address] * PROTIME INR (PT) (04/05/2018 4:24 AM CDT) INR 1.5 (H) 0.8 - 1.2 MAIN LAB Specimen Blood Performing Organization Address City/[facility]/Zipcode Phone Number MAIN LAB [address] [place] [address] * POC GLUCOSE (04/04/2018 8:15 PM CDT) Glucose, POC 242 (H) 70 - 100 MG/DL [facility] MAIN LAB Performing Organization Address [facility] Phone Number MAIN LAB [address] [place] [address] * POC GLUCOSE (04/04/2018 1:22 PM CDT) Glucose, POC 150 (H) 70 - 100 MG/DL [facility] MAIN LAB Performing Organization Address [facility] Phone Number MAIN LAB [address] [place] [address] * POC GLUCOSE (04/04/2018 6:53 AM CDT) Glucose, POC 138 (H) 70 - 100 MG/DL [facility] MAIN LAB Performing Organization Address [facility] Phone Number MAIN LAB [address] [place] [address] * CHEST SINGLE VIEW (04/04/2018 5:11 AM [...] on 04/04/2018 9:11 AM. Performing Organization Address [facility] Phone Number RAD RESULTS * MAGNESIUM (04/04/2018 4:34 AM CDT) Magnesium 1.7 1.6 - 2.6 mg/dL [facility] MAIN LAB Specimen Blood Performing Organization Address [facility] Phone Number MAIN LAB [address] [place] [address] * BASIC METABOLIC PANEL (04/04/2018 4:34 AM [...] for questions. Specimen Blood Performing Organization Address [facility] Phone Number MAIN LAB [address] [place] [address] * CBC (04/04/2018 4:34 AM CDT) White Blood Cells 4.6 4.5 - 11.0 K/UL [facility] MAIN LAB RBC 2.55 (L) 4.0 - 5.0 M/UL [facility] MAIN LAB Hemoglobin 8.1 (L) 12.0 - 15.0 GM/DL [facility] MAIN LAB Hematocrit 24.9 (L) 36 - 45 % MAIN LAB MCV 97.6 80 - 100 FL [facility] MAIN LAB MCH 31.8 26 - 34 PG [facility] MAIN LAB MCHC 32.6 32.0 - 36.0 G/DL MAIN LAB RDW 18.7 (H) 11 - 15 % MAIN LAB Platelet Count 146 (L) 150 - 400 K/UL [facility] MAIN LAB MPV 8.1 7 - 11 FL [facility] MAIN LAB Specimen Blood Performing Organization Address City/[facility] Phone Number MAIN LAB [address] [place] [address] * PTT (APTT) (04/04/2018 4:34 AM CDT) APTT 105.4 (H)Comment: NOTE NEW 20.0 - 36.0 SEC MAIN LAB REFERENCE RANGES Specimen Blood Performing Organization Address City/[facility] Phone Number MAIN LAB [address] [place] [address] * PROTIME INR (PT) (04/04/2018 4:34 AM CDT) INR 1.4 (H) 0.8 - 1.2 MAIN LAB Specimen Blood Performing Organization Address [facility] Phone Number MAIN LAB [address] [place] [address] * POC GLUCOSE (04/03/2018 8:55 PM CDT) Glucose, POC 133 (H) 70 - 100 MG/DL [facility] MAIN LAB Performing Organization Address [facility] Phone Number MAIN LAB [address] [place] [address] * HEMOGLOBIN & HEMATOCRIT (04/03/2018 8:11 PM CDT) Hemoglobin 8.1 (L) 12.0 - 15.0 GM/DL MAIN LAB Hematocrit 24.1 (L) 36 - 45 % MAIN LAB Specimen Blood Performing Organization Address City/[facility] Phone Number MAIN LAB [address] [place] [address] * POC GLUCOSE (04/03/2018 7:53 PM CDT) Glucose, POC 127 (H) 70 - 100 MG/DL [facility] MAIN LAB Performing Organization Address City/[facility] Phone Number [facility] MAIN [facility] [address] [place] [address] * POC GLUCOSE (04/03/2018 4:54 PM CDT) Glucose, POC 180 (H) 70 - 100 MG/DL [facility] MAIN LAB Performing Organization Address [facility] Phone Number [facility] MAIN [facility] [address] [place] [address] * POC GLUCOSE (04/03/2018 11:46 AM CDT) Glucose, POC 185 (H) 70 - 100 MG/DL [facility] MAIN LAB Performing Organization Address [facility] Phone Number [facility] MAIN [facility] [address] [place] [address] * POC GLUCOSE (04/03/2018 6:24 AM CDT) Glucose, POC 212 (H) 70 - 100 MG/DL [facility] MAIN LAB Performing Organization Address [facility] Phone Number [facility] MAIN LAB [address] [place] [address] * CHEST SINGLE VIEW (04/03/2018 6:05 AM [...] on 04/03/2018 9:55 AM. Performing Organization Address [facility] Phone Number RAD RESULTS * PTT (APTT) (04/03/2018 4:24 AM CDT) APTT 96.4 (H)Comment: NOTE NEW 20.0 - 36.0 SEC [facility] MAIN LAB REFERENCE RANGES Specimen Blood Performing Organization Address [facility] Phone Number MAIN LAB [address] [place] [address] * MAGNESIUM (04/03/2018 4:24 AM CDT) Magnesium 1.8 1.6 - 2.6 mg/dL [facility] MAIN LAB Specimen Blood Performing Organization Address [facility] Phone Number MAIN LAB [address] [place] [address] * BASIC METABOLIC PANEL (04/03/2018 4:24 AM [...] for questions. Specimen Blood Performing Organization Address City/[facility]/Zipcode Phone Number MAIN LAB [address] [place] [address] * CBC (04/03/2018 4:24 AM CDT) White Blood Cells 5.1 4.5 - 11.0 K/UL MAIN LAB RBC 2.53 (L) 4.0 - 5.0 M/UL [facility] MAIN LAB Hemoglobin 8.0 (L) 12.0 - 15.0 GM/DL [facility] MAIN LAB Hematocrit 24.6 (L) 36 - [...] MAIN LAB Specimen Blood Performing Organization Address [facility] Phone Number MAIN LAB [address] [place] [phone] * PTT (APTT) (04/02/2018 9:04 PM CDT) APTT 85.7 (H)Comment: NOTE NEW 20.0 - 36.0 SEC MAIN LAB REFERENCE RANGES Specimen Blood Performing Organization Address City/[facility] Phone Number MAIN LAB [address] [place] [address] * POC GLUCOSE (04/02/2018 8:52 PM CDT) Glucose, POC 192 (H) 70 - 100 MG/DL [facility] MAIN LAB Performing Organization Address [facility]/Zipcode Phone Number MAIN LAB [address] [place] [address] * POC GLUCOSE (04/02/2018 5:15 PM CDT) Glucose, POC 170 (H) 70 - 100 MG/DL [facility] MAIN LAB Performing Organization Address [facility] Phone Number MAIN LAB [address] [place] [address] * PTT (APTT) (04/02/2018 2:00 PM CDT) APTT 88.1 (H)Comment: NOTE NEW 20.0 - 36.0 SEC [facility] MAIN LAB REFERENCE RANGES Specimen Blood Performing Organization Address [facility] Phone Number [facility] MAIN [facility] [address] [place] [address] * POC GLUCOSE (04/02/2018 11:38 AM CDT) Glucose, POC 189 (H) 70 - 100 MG/DL [facility] MAIN LAB Performing Organization Address [facility] Phone Number [facility] MAIN [facility] [address] [place] [address] * POC GLUCOSE (04/02/2018 6:57 AM CDT) Glucose, POC 174 (H) 70 - 100 MG/DL [facility] MAIN LAB Performing Organization Address [facility] Phone Number [facility] MAIN [facility] [address] [place] [phone] * PTT (APTT) (04/02/2018 5:20 AM CDT) APTT 126.3 (H)Comment: NOTE NEW 20.0 - 36.0 SEC [facility] MAIN LAB REFERENCE RANGES Specimen Blood Performing Organization Address [facility] Phone Number [facility] MAIN [facility] [address] [place] [phone] * MAGNESIUM (04/02/2018 5:20 AM CDT) Magnesium 1.7 1.6 - 2.6 mg/dL [facility] MAIN LAB Specimen Blood Performing Organization Address [facility] Phone Number [facility] MAIN [facility] [address] [place] [phone] * BASIC METABOLIC PANEL (04/02/2018 5:20 AM [...] for questions. Specimen Blood Performing Organization Address City/[facility]/Zipcode Phone Number MAIN LAB [address] [place] [address] * CBC (04/02/2018 5:20 AM CDT) White [...] MAIN LAB Specimen Blood Performing Organization Address City/[facility] Phone Number [facility] MA[facility] [address] [place] [address] * CHEST SINGLE VIEW (04/02/2018 4:54 AM [...] Esau Hurst M.D. on 04/02/2018 8:49 AM. Narrative Performed [...] MAIN LAB Specimen Blood Performing Organization Address City/[facility] Phone Number [facility] [address] [place] [address] * PTT (APTT) (04/01/2018 11:24 PM CDT) APTT 26.4Comment: NOTE NEW 20.0 - 36.0 SEC [facility] MAIN LAB REFERENCE RANGES Specimen Blood Performing Organization Address [facility] Phone Number [facility] MA[facility] [address] [place] [phone] * POC GLUCOSE (04/01/2018 9:12 PM CDT) Glucose, POC 193 (H) 70 - 100 MG/DL [facility] MAIN LAB Performing Organization Address [facility] Phone Number [facility] MAIN [facility] [address] [place] [address] * CT HEAD WO CONTRAST (04/01/2018 7:51 [...] on 04/01/2018 9:49 PM. Performing Organization Address City/State/Zipcode Phone Number [facility] RAD RESULTS * BASIC METABOLIC PANEL (04/01/2018 [...] for questions. Specimen Blood Performing Organization Address City/[facility] Cent[facility] Phone Number MAIN LAB [address] [place] [address] * POC GLUCOSE (04/01/2018 5:57 PM CDT) Glucose, POC 143 (H) 70 - 100 MG/DL [facility] MAIN LAB Performing Organization Address City/[facility] Cent[facility] Phone Number MAIN LAB [address] [place] [address] * POC GLUCOSE (04/01/2018 12:13 PM CDT) Glucose, POC 140 (H) 70 - 100 MG/DL [facility] MAIN LAB Performing Organization Address [facility] Phone Number MAIN LAB [address] [place] [address] * BLOOD GASES, PERIPHERAL VENOUS (04/01/2018 11:55 AM CDT) pH-Venous 7.24 (L) 7.30 - 7.40 MAIN LAB PCO2-Venous 65 (H) 36 - 50 MMHG KU MAIN LAB PO2-Venous 44 33 - 48 MMHG MAIN LAB Base Deficit-Venous 0.9 MMOL/L MAIN LAB O2 Sat-Venous 74.1 (H) 55 - 71 % MAIN LAB Vaabjgvtdxs-GIO-Vjk 23.4 MMOL/L MAIN LAB Specimen Blood, venous - Blood Performing Organization Address [facility] Phone Number MAIN LAB [address] [place] [address] * EOSINOPHIL STAIN (04/01/2018 11:40 AM CDT) Battery Name EOSINOPHIL STAIN MAIN LAB Specimen Description URINE MAIN LAB Special Requests NONE MAIN LAB Ahuja's Stain NO EOSINOPHILS SEEN [facility] MAIN LAB Report Status FINAL MAIN LAB 04/02/2018 Specimen Urine Performing Organization Address [facility] Phone Number MAIN LAB [address] [place] [address] * CREATININE-URINE RANDOM (04/01/2018 11:40 AM CDT) Creatinine, Random 209 MG/DL MAIN LAB Specimen Urine - Urine Performing Organization Address [facility] Phone Number [facility] MAIN LAB [address] [place] [address] * UREA NITROGEN-URINE RANDOM (04/01/2018 11:40 AM CDT) Urea Nitrogen 294 MG/DL K[facility] MAIN LAB Specimen Urine - Urine Performing Organization Address [facility] Centerconv Phone Number [facility] MAIN LAB [address] [place] [address] * SODIUM-URINE RANDOM (04/01/2018 11:40 AM CDT) Sodium, Random 11 MMOL/L [facility] MAIN LAB Specimen Urine - Urine Performing Organization Address [facility] Centerconv Phone Number [facility] MAIN LAB [address] [place] [address] * UA REFLEX CULTURE LABEL (04/01/2018 11:40 AM CDT) UA Reflex Culture LAB LABEL K[facility] MAIN LAB Specimen Urine Performing Organization Address [facility] Phone Number MAIN LAB [address] [place] [address] * URINALYSIS MICROSCOPIC REFLEX TO CULTURE (04/01/2018 [...] MAIN LAB Specimen Urine Performing Organization Address [facility] Phone Number K[facility] MAIN LAB [address] [place] [id number] * URINALYSIS DIPSTICK REFLEX TO CULTURE (04/01/2018 11:40 AM CDT) Color,UA YELLOW [facility] MAIN LAB Turbidity,UA 1+ (A) CLEAR-CLEAR [facility] MAIN LAB Specific [place]-Urine 1.014 1.003 - 1.035 KU MAIN LAB [...] MAIN LAB Specimen Urine Performing Organization Address [facility] Centerconv Phone Number [facility] MAIN LAB [address] [place] [address] * POC GLUCOSE (04/01/2018 8:25 AM CDT) Glucose, POC 169 (H) 70 - 100 MG/DL [facility] MAIN LAB Performing Organization Address [facility] Phone Number [facility] MAIN LAB [address] [place] [address] * URIC ACID (04/01/2018 7:50 AM CDT) Uric Acid 13.7 (H) 2.0 - 7.0 MG/DL MAIN LAB Specimen Blood Performing Organization Address [facility] Phone Number MAIN LAB [address] [place] [address] * CREATINE KINASE-CPK (04/01/2018 7:50 AM CDT) Creatine Kinase 16 (L) 21 - 215 U/L MAIN LAB Specimen Blood Performing Organization Address [facility] Phone Number [facility] MAIN LAB [address] [place] [address] * MAGNESIUM (04/01/2018 7:50 AM CDT) Magnesium 1.7 1.6 - 2.6 mg/dL K[facility] MAIN LAB Specimen Blood Performing Organization Address [facility] Phone Number [facility] MAIN LAB [address] [place] [address] * CBC AND DIFF (04/01/2018 7:50 AM CDT) White Blood Cells 7.2 4.5 - 11.0 K/UL K[facility] MAIN LAB RBC 2.88 (L) 4.0 - 5.0 M/UL [facility] MAIN LAB Hemoglobin 9.1 (L) 12.0 - [...] MAIN LAB Specimen Blood Performing Organization Address City/[facility]ode Phone Number [facility] LAB [address] [place] [address] * BASIC METABOLIC PANEL (04/01/2018 7:50 AM [...] for questions. Specimen Blood Performing Organization Address City/[facility] Centercode Phone Number [facility] LAB [address] [place] [address] * CHEST SINGLE VIEW (04/01/2018 6:20 AM [...] CDT) pH-Arterial 7.27 (L) 7.35 - 7.45 MAIN LAB pCO2-Arterial 59 (H) 35 - 45 MMHG MAIN LAB pO2-Arterial 76 (L) 80 - 100 MMHG MAIN LAB Base Deficit-Arterial 0.8 MMOL/L MAIN LAB O2 Sat-Arterial 95.0 95 - 99 % MAIN LAB Illmzemnxbk-HMQ-Psp 23.7 21 - 28 MMOL/L MAIN LAB Specimen Blood, arterial - Blood Performing Organization Address City/[facility]ode Phone Number MAIN LAB [address] [place] [address] * CULTURE-BLOOD W/SENSITIVITY (03/31/2018 9:58 PM CDT) Battery Name BLOOD CULTURE MAIN LAB Specimen Description BLOOD MAIN LAB LEFT ANTECUBITAL Special Requests NONE MAIN LAB Culture NO GROWTH 5 DAYS MAIN LAB Report Status FINAL MAIN LAB 04/06/2018 Specimen Blood Performing Organization Address City/[facility]ode Phone Number MAIN LAB [address] [place] [address] * LACTIC ACID (BG - RAPID LACTATE) (03/31/2018 9:50 PM CDT) Lactic Acid,BG 1.3 0.5 - 2.0 MMOL/L MAIN LAB Specimen Blood Performing Organization Address City/[facility] Phone Number MAIN LAB [address] [place] [address] * CULTURE-BLOOD W/SENSITIVITY (03/31/2018 9:50 PM CDT) Battery Name BLOOD CULTURE MAIN LAB Specimen Description BLOOD MAIN LAB RIGHT ANTECUBITAL Special Requests NONE MAIN LAB Culture NO GROWTH 5 DAYS MAIN LAB Report Status FINAL MAIN LAB 04/06/2018 Specimen Blood Performing Organization Address City/[facility]/Zipcode Phone Number MAIN LAB [address] [place] [address] * POC GLUCOSE (03/31/2018 9:12 PM CDT) Glucose, POC 160 (H) 70 - 100 MG/DL [facility] MAIN LAB Performing Organization Address City/[facility]/Zipcode Phone Number MAIN LAB [address] [place] [address] * POC GLUCOSE (03/31/2018 5:48 PM CDT) Glucose, POC 173 (H) 70 - 100 MG/DL [facility] MAIN LAB Performing Organization Address City/State/Zipcode Phone Number [facility] MAIN LAB [address] [place] [address] * COMPREHENSIVE METABOLIC PANEL (03/31/2018 3:35 PM [...] Address City/State/Zipcode Phone Number MAIN LAB [address] [place] [address] * POC GLUCOSE (03/31/2018 12:17 PM CDT) Glucose, POC 137 (H) 70 - 100 MG/DL [facility] MAIN LAB Performing Organization Address City/[facility]/Zipcode Phone Number MAIN LAB [address] [place] [address] * 2-D + DOPPLER ECHOCARDIOGRAM (03/31/2018 11:57 [...] <=0.42 OTHER OUTSIDE LAB Cardiology Ultrasound Siemens [id number] OTHER OUTSIDE LAB Machine Left Ventricle Mass Index 86.94 44 - 88 g/m2 OTHER OUTSIDE LAB CV ECHO PV PRODUCT MANAGENT INTERN Marissa CHANDLER OTHER OUTSIDE LAB TV rest [...] on 03/31/2018 11:20 AM. Performing Organization Address City/State/Zipcode Phone Number [...] on 03/31/2018 11:35 AM. Performing Organization Address City/[facility]/Zipcode Phone Number KU RAD RESULTS * POC GLUCOSE (03/31/2018 7:34 AM CDT) Glucose, POC 141 (H) 70 - 100 MG/DL K[facility] MAIN LAB Performing Organization Address City/[facility] Centerconv Phone Number [employer] MAIN LAB [address] [place] [address] * CHEST SINGLE VIEW (03/31/2018 4:50 AM [...] 95 - 99 % [facility] MAIN LAB Xuhmmxoyzmt-URX-Nin 22.5 21 - 28 MMOL/L [facility] MAIN LAB Specimen Blood, arterial - Blood Performing Organization Address City/State/[facility] Centercode Phone Number [facility] MAIN LAB [address] [place] [address] * COMPREHENSIVE METABOLIC PANEL (03/31/2018 3:50 AM [...] Address City/State/Zipcode Phone Number MAIN LAB [address] [place] [address] * CBC AND DIFF (03/31/2018 3:50 AM CDT) White Blood Cells 10.9 4.5 - 11.0 K/UL MAIN LAB RBC 2.85 (L) 4.0 - [...] Count 1.20 (H) 0 - 0.80 K/UL K[facility] MAIN LAB Absolute Eosinophil Count 0.30 0 - 0.45 K/UL K[facility] MAIN LAB Absolute Basophil Count 0.10 0 - 0.20 K/UL MAIN LAB Specimen Blood Performing Organization Address [facility] [place] [facility] Centercode Phone Number MAIN LAB [address] [place] [address] * POC GLUCOSE (03/30/2018 9:31 PM CDT) Glucose, POC 162 (H) 70 - 100 MG/DL [facility] MAIN LAB Performing Organization Address City/[facility]/Zipcode Phone Number [facility] MAIN LAB [address] [place] [address] * POC GLUCOSE (03/30/2018 5:25 PM CDT) Glucose, POC 138 (H) 70 - 100 MG/DL [facility] MAIN LAB Performing Organization Address [facility] [place] [facility] Centercode Phone Number [facility] MAIN LAB [address] [place] [address] * [employer] (03/30/2018 4:21 [...] on 03/30/2018 4:22 PM. Performing Organization Address City/State/Zipcode Phone Number [facility] RAD RESULTS * POC GLUCOSE (03/30/2018 12:48 PM CDT) Glucose, POC 187 (H) 70 - 100 MG/DL [facility] MAIN LAB Performing Organization Address City/State/Zipcode Phone Number [facility] MAIN LAB [address] [place] [address] * OSMOLALITY-URINE RANDOM (03/30/2018 12:31 PM CDT) Osmolality-Urine 364 50 - 1,400 MOS/KG [facility] MAIN LAB Specimen Urine - Urine Performing Organization Address City/[facility]/Zipcode Phone Number K[facility] MAIN LAB [address] [place] [address] * UREA NITROGEN-URINE RANDOM (03/30/2018 12:31 PM CDT) Urea Nitrogen 311 MG/DL [facility] MAIN LAB Specimen Urine - Urine Performing Organization Address [facility] Centerconv Phone Number [facility] MAIN LAB [address] [place] [address] * CREATININE-URINE RANDOM (03/30/2018 12:31 PM CDT) Creatinine, Random 244 MG/DL [facility] MAIN LAB Specimen Urine - Urine Performing Organization Address [facility] Phone Number [facility] MAIN LAB [address] [place] [address] * UA REFLEX CULTURE LABEL (03/30/2018 12:30 PM CDT) UA Reflex Culture LAB LABEL [facility] MAIN LAB Specimen Urine Performing Organization Address [facility] Phone Number [facility] MAIN LAB [address] [place] [phone] * URINALYSIS MICROSCOPIC REFLEX TO CULTURE (03/30/2018 [...] MAIN LAB Specimen Urine Performing Organization Address [facility] Phone Number [facility] MAIN LAB [address] [place] [address] * URINALYSIS DIPSTICK REFLEX TO CULTURE (03/30/2018 12:30 PM CDT) Color,UA CARLIE [facility] MAIN LAB Turbidity,UA 1+ (A) CLEAR-CLEAR [facility] MAIN LAB Specific [place]-Urine 1.021 1.003 - 1.035 KU MAIN LAB [...] UA NEG NEG-NEG MAIN LAB Specimen Urine Performing Organization Address [facility] Centerconv Phone Number MAIN LAB [address] [place] [address] * TELEMETRY STRIPS-SCAN (03/30/2018 11:43 AM CDT) Narrative Performed At Ordered by an unspecified provider. * POC GLUCOSE (03/30/2018 9:02 AM CDT) Glucose, POC 195 (H) 70 - 100 MG/DL MAIN LAB Performing Organization Address [facility] Centerconv Phone Number [facility] LAB [address] [place] [address] * COMPREHENSIVE METABOLIC PANEL (03/30/2018 4:10 AM [...] City/State/Zipcode Phone Number [facility] MAIN LAB [address] [place] [address] * CBC AND DIFF (03/30/2018 4:10 AM [...] MAIN LAB Specimen Blood Performing Organization Address City/[facility]/Zipcode Phone Number K[facility] MAIN LAB [address] [place] [address] * CHEST SINGLE VIEW (03/30/2018 3:08 AM [...] on 03/30/2018 10:33 AM. Performing Organization Address City/State/Zipcode Phone Number [facility] RAD RESULTS * POC GLUCOSE (03/29/2018 8:42 PM CDT) Glucose, POC 173 (H) 70 - 100 MG/DL [facility] MAIN LAB Performing Organization Address City/State/Zipcode Phone Number MAIN LAB [address] [place] [address] * POC GLUCOSE (03/29/2018 5:07 PM CDT) Glucose, POC 207 (H) 70 - 100 MG/DL MAIN LAB Performing Organization Address City/[facility]/Zipcode Phone Number MAIN LAB [address] [place] [address] * OSMOLALITY-URINE RANDOM (03/29/2018 4:02 PM CDT) Osmolality-Urine 342 50 - 1,400 MOS/KG MAIN LAB Specimen Urine - Urine Performing Organization Address City/[facility] [place] [facility]ercode Phone Number MAIN LAB [address] [place] [address] * UREA NITROGEN-URINE RANDOM (03/29/2018 4:02 PM CDT) Urea Nitrogen 247 MG/DL MAIN LAB Specimen Urine - Urine Performing Organization Address City/[facility] [place] [facility]ercode Phone Number MAIN LAB [address] [place] [address] * SODIUM-URINE RANDOM (03/29/2018 4:02 PM CDT) Sodium, Random 12 MMOL/L MAIN LAB Specimen Urine - Urine Performing Organization Address City/[facility] [place] [facility]ercode Phone Number MAIN LAB [address] [place] [address] * CREATININE-URINE RANDOM (03/29/2018 4:02 PM CDT) Creatinine, Random 194 MG/DL MAIN LAB Specimen Urine - Urine Performing Organization Address City/[facility] [place] [facility] Phone Number MAIN LAB [address] [place] [address] * POC GLUCOSE (03/29/2018 11:33 AM CDT) Glucose, POC 214 (H) 70 - 100 MG/DL [facility] MAIN LAB Performing Organization Address City/[facility] [place] [facility] Phone Number MAIN LAB [address] [place] [address] * POC GLUCOSE (03/29/2018 10:32 AM CDT) Glucose, POC 203 (H) 70 - 100 MG/DL MAIN LAB Performing Organization Address City/[facility] [place] [facility] Phone Number MAIN LAB [address] [place] [address] * POC GLUCOSE (03/29/2018 8:37 AM CDT) Glucose, POC 215 (H) 70 - 100 MG/DL MAIN LAB Performing Organization Address City/State/Zipcode Phone Number MAIN LAB [address] [place] [address] * EGD REPORT (03/29/2018 7:42 AM CDT) Provation Report Patient Name: Donnie CASTILLO OTHER RESULTS Procedure Date: 03/29/2018 7:42 AM CSN: [id number] Date of : 1955 Gender: Female Attending Physician: Dannielle Covington MD Procedure: Upper GI endoscopy Indications: Iron deficiency anemia Providers: Dannielle Covington MD (Doctor), Conner Martines MD (Fellow), Myla Meza RN (Nurse), Lynette Aguero Pre Press Operator (Pre Press Operator) Referring Physician: Dominic Fuller MD, Carla Puente [...] of the duodenum were normal. Impression: - [place]-colored mucosa suspicious for Long's esophagus. Biopsy is [...] discussed her endoscopic findings with Dr. Maier (tube drawing supervisor). 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 Please consult hepatology team for further management. Scope In: 11:08:40 AM Scope Out: 11:17:33 AM Total Procedure Duration Time 0 hours 8 minutes 53 seconds Procedure Code(s): --- Professional --- 48240, Esophagogastroduodenoscopy, flexible, transoral; diagnostic, including collection of specimen(s) by brushing or washing, when performed (separate procedure) Diagnosis Code(s): --- Professional --- K22.8, Other specified diseases of esophagus I85.00, Esophageal varices without bleeding K76.6, Portal hypertension K31.89, Other diseases of stomach and duodenum K31.819, Angiodysplasia of stomach and duodenum without bleeding D50.9, Iron deficiency anemia, unspecified CPT copyright 2016 [employer]. All rights reserved. The codes documented in this report are preliminary and upon director of learning review may be revised to meet current [...] Phone Number [facility] MAIN LAB [address] [place] [address] * CBC AND DIFF (03/29/2018 5:00 AM [...] Monocyte Count 0.80 0 - 0.80 K/UL MAIN LAB Absolute Eosinophil Count 0.30 0 - 0.45 K/UL [facility] MAIN LAB Absolute Basophil Count 0.00 0 - 0.20 K/UL MAIN LAB Specimen Blood Performing Organization Address City/[facility] [place] [facility] Phone Number MAIN LAB [address] [place] [address] * POC GLUCOSE (03/28/2018 9:23 PM CDT) Glucose, POC 241 (H) 70 - 100 MG/DL KU MAIN LAB Performing Organization Address City/[facility] [place] [facility] Phone Number MAIN LAB [address] [place] [address] * POC GLUCOSE (03/28/2018 5:14 PM CDT) Glucose, POC 231 (H) 70 - 100 MG/DL K[facility] MAIN LAB Performing Organization Address City/[facility] [place] [facility] Phone Number MAIN LAB [address] [place] [address] * POC GLUCOSE (03/28/2018 1:13 PM CDT) Glucose, POC 196 (H) 70 - 100 MG/DL K[facility] MAIN LAB Performing Organization Address [facility] [place] [facility] Centercode Phone Number MAIN LAB [address] [place] [address] * POC GLUCOSE (03/28/2018 9:24 AM CDT) Glucose, POC 219 (H) 70 - 100 MG/DL KU MAIN LAB Performing Organization Address City/[facility]/Zipcode Phone Number MAIN LAB [address] [place] [address] * COMPREHENSIVE METABOLIC PANEL (03/28/2018 4:50 AM [...] for questions. Specimen Blood Performing Organization Address City/[facility]/Zipcode Phone Number MAIN LAB [address] [place] [address] * CBC AND DIFF (03/28/2018 4:50 AM [...] LAB MCH 31.5 26 - 34 PG MAIN LAB MCHC 32.5 32.0 - 36.0 G/DL MAIN LAB RDW 19.3 (H) 11 - 15 % KU MAIN LAB Platelet Count 157 150 - 400 K/UL MAIN LAB MPV 8.3 7 - 11 FL K[facility] MAIN LAB Neutrophils 72 41 - 77 % K[facility] MAIN LAB Lymphocytes 14 (L) 24 - 44 % K[facility] MAIN LAB Monocytes 9 4 - 12 % K[facility] MAIN LAB Eosinophils 5 0 - 5 % MAIN LAB Basophils 0 0 - 2 % K[facility] MAIN LAB Absolute Neutrophil Count 3.90 1.8 - 7.0 K/UL KU MAIN LAB Absolute Lymph Count 0.80 (L) 1.0 - 4.8 K/UL K[facility] MAIN LAB Absolute Monocyte Count 0.50 0 - 0.80 K/UL MAIN LAB Absolute Eosinophil Count 0.30 0 - 0.45 K/UL MAIN LAB Absolute Basophil Count 0.00 0 - 0.20 K/UL MAIN LAB Specimen Blood Performing Organization Address City/[facility] Phone Number MAIN LAB [address] [place] [address] * POC GLUCOSE (03/27/2018 9:23 PM CDT) Glucose, POC 200 (H) 70 - 100 MG/DL KU MAIN LAB Performing Organization Address [facility] [place] [facility]ode Phone Number MAIN LAB [address] [place] [address] * POC GLUCOSE (03/27/2018 6:31 PM CDT) Glucose, POC 201 (H) 70 - 100 MG/DL KU MAIN LAB Performing Organization Address [facility]ercode Phone Number MAIN LAB [address] [place] [address] * ECG-SCAN (03/27/2018 11:05 AM CDT) Narrative Performed At Ordered by an unspecified provider. * POC GLUCOSE (03/27/2018 9:59 AM CDT) Glucose, POC 191 (H) 70 - 100 MG/DL K[facility] MAIN LAB Performing Organization Address [facility] Phone Number MAIN LAB [address] [place] [address] * POC GLUCOSE (03/27/2018 7:37 AM CDT) Glucose, POC 213 (H) 70 - 100 MG/DL K[facility] MAIN LAB Performing Organization Address City/State/Zipcode Phone Number [facility] MAIN LAB [address] [place] [address] * COMPREHENSIVE METABOLIC PANEL (03/27/2018 5:30 AM [...] City/State/Zipcode Phone Number [facility] MAIN LAB [address] [place] [address] * CBC AND DIFF (03/27/2018 5:30 AM [...] MAIN LAB Specimen Blood Performing Organization Address City/[facility]ercode Phone Number MAIN LAB [address] [place] [address] * URINALYSIS, MICROSCOPIC (03/27/2018 2:59 AM CDT) WBCs,UA 0-2 0 - 2 /HPF MAIN LAB RBCs,UA 0-2 0 - 3 /HPF KU MAIN LAB MucousUA TRACE K[facility] MAIN LAB Squamous Epithelial Cells 5-10 0 - 5 KU MAIN LAB Hyaline Cast PACKED [facility] MAIN LAB Specimen Urine - Urine Performing Organization Address City/[facility]/Zipcode Phone Number MAIN LAB [address] [place] [address] * URINALYSIS DIPSTICK (03/27/2018 2:59 AM CDT) Color,UA YELLOW KU MAIN LAB Turbidity,UA CLEAR CLEAR-CLEAR K[facility] MAIN LAB Specific [place]-Urine 1.015 1.003 - 1.035 KU MAIN LAB [...] Specimen Urine - Urine Performing Organization Address [facility] Centercode Phone Number [facility] MAIN LAB [address] [place] [address] * TRANSFUSE RBC'S NON-BLEEDING PT (03/26/2018 10:53 PM CDT) * TRANSFUSE RBC'S NON-BLEEDING PT (03/26/2018 10:53 PM CDT) * POC GLUCOSE (03/26/2018 9:29 PM CDT) Glucose, POC 233 (H) 70 - 100 MG/DL [facility] MAIN LAB Performing Organization Address [facility] Phone Number [facility] MAIN LAB [address] [place] [address] * POC GLUCOSE (03/26/2018 3:10 PM CDT) Glucose, POC 177 (H) 70 - 100 MG/DL [facility] MAIN LAB Performing Organization Address [facility] Phone Number [facility] MAIN LAB [address] [place] [address] * CHEST X-RAY INSPIRATION/EXPIRATION (03/26/2018 1:41 PM [...] drugs utilized were:Fentanyl and Versed I, Chauncey Staples M.D, the [...] The needle was removed, and an 8 [place]an pigtail all purpose drainage catheter was advanced [...] The needle was removed, and an 8 [place]an pigtail all purpose drainage catheter was advanced [...] immediately available. I interpret the critical and demspey portion of this procedure to have been [...] on 03/26/2018 2:14 PM. Performing Organization Address [facility] Cent[facility]ode Phone Number RAD RESULTS * POC GLUCOSE (03/26/2018 7:57 AM CDT) Glucose, POC 210 (H) 70 - 100 MG/DL MAIN LAB Performing Organization Address [facility] Phone Number MAIN LAB [address] [place] [address] * CBC AND DIFF (03/26/2018 2:02 AM [...] Count 0.70 (L) 1.0 - 4.8 K/UL MAIN LAB Absolute Monocyte Count 0.50 0 - 0.80 K/UL [facility] MAIN LAB Absolute Eosinophil Count 0.40 0 - 0.45 K/UL [facility] MAIN LAB Absolute Basophil Count 0.00 0 - 0.20 K/UL MAIN LAB Performing Organization Address [facility] Phone Number MAIN LAB [address] [place] [address] * COMPREHENSIVE METABOLIC PANEL (03/26/2018 2:02 AM CDT) Sodium 136 (L) 137 - 147 MMOL/L MAIN LAB Potassium 4.4 3.5 - 5.1 MMOL/L MAIN LAB Chloride 105 98 - 110 MMOL/L MAIN LAB Glucose 226 (H) 70 - 100 MG/DL MAIN LAB Blood Urea Nitrogen 27 (H) 7 - 25 MG/DL MAIN LAB Creatinine 1.49 (H) 0.4 - 1.00 MG/DL MAIN LAB Calcium 9.3 8.5 - 10.6 MG/DL MAIN LAB Total Protein 7.0 6.0 - 8.0 G/DL MAIN LAB Total Bilirubin 0.5 0.3 - 1.2 MG/DL MAIN LAB Albumin 3.2 (L) 3.5 - 5.0 G/DL MAIN LAB Alk Phosphatase 75 25 - 110 U/L MAIN LAB AST (SGOT) 17 7 - 40 U/L MAIN LAB CO2 25 21 - 30 [...] Clinical Pharmacist for questions. Performing Organization Address City/[facility]/Zipcode Phone Number MAIN LAB [address] [place] [address] * TROPONIN-I (03/26/2018 2:02 AM CDT) Troponin-I 0.01 0.0 - 0.05 NG/ML MAIN LAB Specimen Blood Performing Organization Address City/[facility]/Zipcode Phone Number [facility] LAB [address] [place] [address] * POC GLUCOSE (03/25/2018 9:25 PM CDT) Glucose, POC 190 (H) 70 - 100 MG/DL MAIN LAB Performing Organization Address City/[facility]/Zipcode Phone Number [facility] LAB [address] [place] [address] * CULTURE-BLOOD W/SENSITIVITY (03/25/2018 8:58 PM CDT) Battery Name BLOOD CULTURE MAIN LAB Specimen Description BLOOD MAIN LAB LEFT UPPER ARM Special Requests NONE MAIN LAB Culture NO GROWTH 5 DAYS [facility] MAIN LAB Report Status FINAL [facility] MAIN LAB 03/31/2018 Specimen Blood Performing Organization Address [place] [facility] MA[facility] LAB [address] [place] [address] * PHOSPHORUS (03/25/2018 8:53 PM CDT) Phosphorus 3.3Comment: NOTE NEW REFERENCE 2.0 - 4.5 MG/DL MAIN LAB RANGES Specimen Blood Performing Organization Address [facility] Phone Number MAIN LAB [address] [place] [address] * MAGNESIUM (03/25/2018 8:53 PM CDT) Magnesium 1.7 1.6 - 2.6 mg/dL MAIN LAB Specimen Blood Performing Organization Address [facility] Phone Number MAIN LAB [address] [place] [address] * TYPE & CROSSMATCH (03/25/2018 8:53 PM CDT) Units Ordered 1 MAIN LAB Crossmatch Expires 03/28/2018 MAIN LAB Record Check FOUND MAIN LAB ABO/RH(D) A POS MAIN LAB Antibody Screen NEG MAIN LAB Patient has a history of a clinically significant antibody. Unit Number [id number] MAIN LAB Blood Component Type RBC,ADSOL,LEUKO REDUCED [facility]U MAIN LAB Unit Division 0 [facility] MAIN LAB Status OF Unit TRANSFUSED MAIN LAB Transfusion Status OK TO TRANSFUSE MAIN LAB Crossmatch Result COMPATIBLE, GEL [facility] MAIN LAB Specimen Blood Performing Organization Address [facility] Phone Number [facility] LAB [address] [place] [address] * LACTIC ACID (BG - RAPID LACTATE) (03/25/2018 8:53 PM CDT) Lactic Acid,BG 1.3 0.5 - 2.0 MMOL/L MAIN LAB Specimen Blood Performing Organization Address [facility] Phone Number MAIN LAB [address] [place] [address] * CULTURE-BLOOD W/SENSITIVITY (03/25/2018 8:53 PM CDT) Battery Name BLOOD CULTURE MAIN LAB Specimen Description BLOOD MAIN LAB LEFT ANTECUBITAL Special Requests NONE MAIN LAB Culture NO GROWTH 5 DAYS KU MAIN LAB Report Status FINAL [facility] MAIN LAB 03/31/2018 Specimen Blood Performing Organization Address City/[facility]/Zipcode Phone Number MAIN LAB [address] [place] [address] * TROPONIN-I (03/25/2018 8:53 PM CDT) Troponin-I 0.01 0.0 - 0.05 NG/ML MAIN LAB Specimen Blood Performing Organization Address City/[facility] Phone Number MAIN LAB [address] [place] [address] * CT HEAD WO CONTRAST (03/25/2018 6:23 [...] RAD RESULTS * US DOPPLER VENOUS W EXTRM LEFT [...] on 03/25/2018 8:54 PM. Performing Organization Address City/[facility]/Zipcode Phone Number RAD RESULTS * BNP POC ER (03/25/2018 4:16 PM CDT) BNP POC 327.0 (H) 0 - 100 PG/ML [facility]U MAIN LAB Performing Organization Address [facility] Phone Number KU MAIN LAB [address] [place] [address] * POC TROPONIN (03/25/2018 4:09 PM CDT) Hacgczqg-X-BPY 0.00 0.00 - 0.05 NG/ML [facility] MAIN LAB Performing Organization Address [facility] Phone Number MAIN LAB [address] [place] [address] * PHOSPHORUS (03/25/2018 4:07 PM CDT) Phosphorus 3.5Comment: NOTE NEW REFERENCE 2.0 - 4.5 MG/DL KU MAIN LAB RANGES Specimen Blood Performing Organization Address [facility] Phone Number MAIN LAB [address] [place] [address] * MAGNESIUM (03/25/2018 4:07 PM CDT) Magnesium 1.8 1.6 - 2.6 mg/dL MAIN LAB Specimen Blood Performing Organization Address [facility] Phone Number MAIN LAB [address] [place] [address] * COMPREHENSIVE METABOLIC PANEL (03/25/2018 4:07 PM [...] Organization Address City/State/Zipcode Phone Number MAIN LAB [address] [place] [address] * CBC AND DIFF (03/25/2018 4:07 PM [...] MAIN LAB Specimen Blood Performing Organization Address City/[facility]/Zipcode Phone Number MAIN LAB [address] [place] [address] * CHEST SINGLE VIEW (03/25/2018 3:50 PM [...] on 03/25/2018 4:28 PM. Performing Organization Address City/State/Zipcode Phone Number KU RAD RESULTS * ECG-SCAN (03/25/2018 2:30 PM CDT) Narrative Performed At Ordered by an unspecified provider. in this encounter Visit Diagnoses Diagnosis Hematochezia Blood in stool in this encounter Admitting Diagnoses Diagnosis Atrial [...] 650 mg Given 03/30/2018 12:46 PM CDT 04/08/2018 10:01 AM CDT 81 mg aspirin chewable tablet 81 mg Given 81 mg, Oral, DAILY, First dose on [place] 03/25/18 at 1900, Until Discontinued 81 mg Given 04/07/2018 8:48 AM CDT 81 mg Given 04/06/2018 9:28 AM CDT 04/08/2018 10:02 AM CDT 10 mg cetirizine (ZYRTEC) tablet 10 mg Given 10 mg, Oral, EVERY MORNING, First dose on [place] 03/25/18 at 1900, Until Discontinued 10 mg Given 04/07/2018 8:48 AM CDT 10 mg Given 04/06/2018 9:29 AM CDT 04/08/2018 10:01 AM CDT 180 mg diltiazem CD (cardIZEM CD) capsule 180 Given mg 180 mg, Oral, DAILY, First dose on Thu04/02/18 at 1300, Until Discontinued 180 mg Given 04/07/2018 8:49 AM CDT 180 mg Given 04/06/2018 9:33 AM CDT 04/08/2018 10:01 AM CDT 1 mg folic acid (FOLVITE) tablet 1 mg Given 1 mg, Oral, DAILY, First dose on [place] 03/25/18 at 1900, Until Discontinued 1 mg Given 04/07/2018 8:49 AM CDT 1 mg Given 04/06/2018 9:29 AM CDT 04/07/2018 8:20 PM CDT 25 [...] 1100, Until Discontinued, -POC glucose 140-180mg/dL at , , administer 2 units insulin, at , 03* administer 0 units. -POC glucose 181-220mg/dL at , , administer 4 units insulin, at , * administer 2 units. -POC glucose 221-260mg/dL at , , administer 6 units insulin, at , * administer 4 units. -POC glucose 261-300mg/dL at , , administer 8 units insulin, at , * administer 6 units. -POC glucose 301-350mg/dL at , , administer 10 units insulin, at , * administer 8 units. -POC glucose 351-400mg/dL at , , administer 12 units insulin, at , * administer 10 units. -POC glucose >400mg/dL at , , administer 14 units insulin, at , * administer 12 units. *only if ordered [...] Abdominal Tissue Given 04/06/2018 6:06 PM CDT 04/08/2018 10:05 AM CDT 18 Units Arm, Right insulin NPH (HUMULIN N KwikPen) Given injection PEN 18 Units 18 Units, Subcutaneous, DAILY, First dose on Thu03/29/18 at 0800, Until Discontinued, NOTE: This is a HIGH ALERT Medication., 18 Units Arm, Left Given 04/05/2018 9:38 AM CDT 18 Units Arm, Left Given 04/04/2018 8:27 AM CDT 04/08/2018 5:39 AM CDT 175 [...] 175 mcg Given 04/06/2018 5:58 AM CDT 04/08/2018 10:01 AM CDT 400 mg magnesium oxide (MAG-OX) tablet 400 mg Given 400 mg, Oral, TWICE DAILY, First dose on Thu04/02/18 at 0900, Until Discontinued, Delivers 241.3mg elemental magnesium per tab, 400 mg Given 04/07/2018 8:20 PM CDT 400 mg Given 04/07/2018 8:49 AM CDT 04/07/2018 8:20 PM CDT 5 mg melatonin [...] 100 mg Given 04/07/2018 8:48 AM CDT 04/08/2018 10:02 AM CDT nystatin (NYSTOP) [...] 80 mg Given 04/05/2018 9:02 PM CDT pramoxine/zinc oxide (TRONOLANE) 1% / 5% topical cream Rectal, DAILY PRN, Starting Thu04/07/18 at 1437, Until Thu04/09/18 at 0003, Burning, Itching Topical, Other..., For Hemorrhoids 04/07/2018 8:48 AM CDT 2 tablets senna/docusate (SENOKOT-S) tablet 2 Given tablet 2 tablet, Oral, TWICE DAILY, First dose on Thu03/25/18 at 2100, Until Discontinued, Hold for loose stools, 2 tablets Given 04/06/2018 9:26 PM CDT 2 tablets Given 04/06/2018 9:28 AM CDT 04/08/2018 10:01 AM CDT 40 mg torsemide(+) (DEMADEX) tablet 40 mg Given 40 mg, Oral, DAILY, First dose on Thu04/08/18 at 0945, Until Discontinued 04/08/2018 5:29 PM CDT 50 mg traMADol (ULTRAM) tablet 50 mg Given 50 mg, Oral, EVERY 6 HOURS PRN, Starting Thu03/25/18 at 1845, Until Thu04/09/18 at 0003, Pain PO 50 mg Given 04/08/2018 1:24 AM CDT 50 mg Given 04/05/2018 3:41 PM CDT in this encounter
--- OUTSIDE RECORDS SUMMARY | 2018-05-30 06:58 | XMS REPORT | Encounter Summary ---
Author Author [facility] Organization [facility] Address Unknown Phone Unavailable Care Team Providers Care Summons Server Name Role Phone Carla Wilson MD PCP Naima Field MD Unavailable Winnie Jorge MD Unavailable Reason for Visit * Reason Comments General Question tachycardia Encounter Details Care Team Description Date Type Department Sophie Avina RN General Question (tachycardia) 03/25/2018 Telephone [facility] [place] [id number] [address] [place], [place] [id number] Social History Date Tobacco Use Types Packs/Day [...] encounter Miscellaneous Notes * Telephone Encounter - Sophie Avina RN - 03/25/2018 11:30 AM CDT Pt called to report that her HR is still 118-119 this AM after taking an extra dose of 50 mg Metoprolol last night and an increased dose of 100 mg Metoprolol this AM (as prescribed by her Primary Puppet Engineer). Pt is SOB and lightheaded. She was advised by Dr Pal yesterday to return to the ER for admission if She continued to have symptomatic tachycardia. Advised pt to seek treatment in local ER if having intolerable symptoms. Pt stated they would drive to ER for treatment. in this encounter Plan of Treatment Not on fileas of this encounter Visit Diagnoses Not on filein this encounter
--- OUTSIDE RECORDS SUMMARY | 2018-05-30 06:58 | XMS REPORT | Encounter Summary ---
Author Author [facility] Organization [facility] Address Unknown Phone Unavailable Care Team Providers Care Field Service Manager Name Role Phone Carla Wilson MD PCP Naima Field MD Unavailable Winnie Jorge MD Unavailable Reason for Visit * Reason Comments Shortness of Breath CABG x4 1 month ago, sob, in and out of afib and flutter Encounter Details Care Team Description Date Type Department Dannielle Covington MD [address] [place], [place] [id number] ESOPHAGOGASTRODUODENOSCOPY 03/29/2018 Surgery Gastrointenstinal Endoscopy [address] [place], [place] [id number] Social History Date Tobacco Use Types Packs/Day [...] Date/Time Associated Diagnosis ECG-SCAN 04/24/2018 5:40 PM ALLERGIST/PEDIATRIC PULMONOLOGIST TELEMETRY STRIPS-SCAN 04/16/2018 12:49 PM CDT ECG-SCAN [...] PM CDT COLONOSCOPY 04/07/2018 12:07 PM CDT POC GLUCOSE 04/07/2018 7:56 AM CDT [...] encounter Results * ECG-SCAN (04/24/2018 5:40 PM ALLERGIST/PEDIATRIC PULMONOLOGIST) Narrative Performed At Ordered by an unspecified [...] Address City/State/Zipcode Phone Number MAIN LAB [address] [place] [address] * TRANSESOPHAGEAL ECHOCARDIOGRAM (04/08/2018 4:06 PM CDT) BSA 2.19 m2 OTHER OUTSIDE LAB CV ECHO PV GRADE TAMPER Marisa RN, Anesthesia Team OTHER OUTSIDE LAB Interp Only Ramp Service Man Charu Golden OTHER OUTSIDE LAB Cardiology Ultrasound Siemens [id number] OTHER OUTSIDE LAB Machine TV rest pulmonary [...] from the prior study. Performing Organization Address City/[facility] Phone Number OTHER OUTSIDE LAB * POC GLUCOSE (04/08/2018 12:41 PM CDT) Glucose, POC 136 (H) 70 - 100 MG/DL [facility] MAIN LAB Performing Organization Address City/[facility] Phone Number [facility] MAIN LAB [address] [place] [address] * POC GLUCOSE (04/08/2018 11:56 AM CDT) Glucose, POC 147 (H) 70 - 100 MG/DL [facility] MAIN LAB Performing Organization Address [facility] Phone Number [facility] MAIN LAB [address] [place] [address] * POC GLUCOSE (04/08/2018 8:37 AM CDT) Glucose, POC 216 (H) 70 - 100 MG/DL [facility] MAIN LAB Performing Organization Address [facility] Phone Number [facility] MAIN LAB [address] [place] [address] * MAGNESIUM (04/08/2018 5:00 AM CDT) Magnesium 2.3 1.6 - 2.6 mg/dL MAIN LAB Specimen Blood Performing Organization Address [facility] Phone Number MAIN LAB [address] [place] [phone] * PTT (APTT) (04/08/2018 5:00 AM CDT) APTT 30.2Comment: NOTE NEW 20.0 - 36.0 SEC [facility] MAIN LAB REFERENCE RANGES Specimen Blood Performing Organization Address [facility] Phone Number [facility] MAIN LAB [address] [place] [address] * BASIC METABOLIC PANEL (04/08/2018 5:00 AM [...] for questions. Specimen Blood Performing Organization Address City/[facility] Phone Number MAIN LAB [address] [place] [address] * CBC (04/08/2018 5:00 AM CDT) White Blood Cells 4.4 (L) 4.5 - 11.0 K/UL MAIN LAB RBC 2.59 (L) 4.0 - 5.0 M/UL MAIN LAB Hemoglobin 8.1 (L) 12.0 - 15.0 GM/DL MAIN LAB Hematocrit 25.0 (L) 36 - 45 % MAIN LAB MCV 96.6 80 - 100 FL MAIN LAB MCH 31.4 26 - 34 PG MAIN LAB MCHC 32.5 32.0 - 36.0 G/DL [facility] LAB RDW 17.8 (H) 11 - 15 % MAIN LAB Platelet Count 129 (L) 150 - 400 K/UL MAIN LAB MPV 8.8 7 - 11 FL MAIN LAB Specimen Blood Performing Organization Address [facility] Phone Number MAIN LAB [address] [place] [address] * PROTIME INR (PT) (04/08/2018 5:00 AM CDT) INR 1.6 (H) 0.8 - 1.2 MAIN LAB Specimen Blood Performing Organization Address [facility] Phone Number MAIN LAB [address] [place] [address] * POC GLUCOSE (04/07/2018 9:00 PM CDT) Glucose, POC 157 (H) 70 - 100 MG/DL [facility] MAIN LAB Performing Organization Address [facility]/State/Zipcode Phone Number MAIN LAB [address] [place] [address] * POC GLUCOSE (04/07/2018 5:59 PM CDT) Glucose, POC 261 (H) 70 - 100 MG/DL [facility] MAIN LAB Performing Organization Address [facility]/Zipcode Phone Number MAIN LAB [address] [place] [address] * POC GLUCOSE (04/07/2018 2:29 PM CDT) Glucose, POC 141 (H) 70 - 100 MG/DL MAIN LAB Performing Organization Address [facility]/Zipcode Phone Number MAIN LAB [address] [place] [address] * COLONOSCOPY (04/07/2018 12:07 PM CDT) Provation Report Patient Name: Donnie CASTILLO OTHER RESULTS Procedure Date: 04/07/2018 12:07 PM CSN: [id number] Date of : 1955 Gender: Female Attending Physician: Skinny Marshall MD Procedure: Colonoscop y Indications: Hematochezia Providers: Skinny Marshall MD (Doctor), Conner Martines MD (Fellow), Mariana Suarez RN (Nurse), Elvia River Chorus Dancer (Chorus Dancer) Referring Physician: Felisa Sneed Medications: Monitored Anesthesia [...] On: 04/07/2018 12:07 PM Performing Organization Address City/State/[facility] Phone Number [facility] OTHER RESULTS * POC GLUCOSE (04/07/2018 7:56 AM CDT) Glucose, POC 133 (H) 70 - 100 MG/DL [facility] MAIN LAB Performing Organization Address City/[facility] Phone Number MAIN LAB [address] [place] [address] * CHEST SINGLE VIEW (04/07/2018 6:43 AM [...] MAIN LAB Specimen Blood Performing Organization Address City/[facility]/Zipcode Phone Number MAIN LAB [address] [place] [address] * PTT (APTT) (04/07/2018 4:25 AM CDT) APTT 29.1Comment: NOTE NEW 20.0 - 36.0 SEC [facility] MAIN LAB REFERENCE RANGES Specimen Blood Performing Organization Address City/[facility]/Zipcode Phone Number [facility] LAB [address] [place] [phone] * BASIC METABOLIC PANEL (04/07/2018 4:25 AM [...] for questions. Specimen Blood Performing Organization Address City/[facility]/Zipcode Phone Number MAIN LAB [address] [place] [address] * CBC (04/07/2018 4:25 AM CDT) White [...] LAB MPV 8.6 7 - 11 FL K[facility] MAIN LAB Specimen Blood Performing Organization Address [facility] Phone Number MAIN LAB [address] [place] [address] * PROTIME INR (PT) (04/07/2018 4:25 AM CDT) INR 1.6 (H) 0.8 - 1.2 MAIN LAB Specimen Blood Performing Organization Address [facility] Phone Number MAIN LAB [address] [place] [address] * POC GLUCOSE (04/06/2018 9:06 PM CDT) Glucose, POC 165 (H) 70 - 100 MG/DL [facility] MAIN LAB Performing Organization Address [facility] Phone Number MAIN LAB [address] [place] [address] * POC GLUCOSE (04/06/2018 6:04 PM CDT) Glucose, POC 273 (H) 70 - 100 MG/DL [facility] MAIN LAB Performing Organization Address [facility] Phone Number MAIN LAB [address] [place] [address] * POC GLUCOSE (04/06/2018 11:56 AM CDT) Glucose, POC 138 (H) 70 - 100 MG/DL [facility] MAIN LAB Performing Organization Address [facility] Phone Number MAIN LAB [address] [place] [address] * POC GLUCOSE (04/06/2018 8:49 AM CDT) Glucose, POC 150 (H) 70 - 100 MG/DL MAIN LAB Performing Organization Address [facility] Phone Number MAIN LAB [address] [place] [address] * CHEST SINGLE VIEW (04/06/2018 6:30 AM [...] AM. Performing Organization Address City/State/Zipcode Phone Number [employer] RAD RESULTS * MAGNESIUM (04/06/2018 3:00 AM CDT) Magnesium 2.0Comment: SLT HEMOLYSIS 1.6 - 2.6 mg/dL [facility] MAIN LAB Performing Organization Address City/State/[facility] Phone Number [facility] MAIN LAB [address] [place] [phone] * IRON + BINDING CAPACITY + %SAT+ FERRITIN (04/06/2018 3:00 AM CDT) Iron 23 (L)Comment: SLT HEMOLYSIS 50 - 160 MCG/DL [facility] MAIN LAB Iron Binding-TIBC 273 270 - 380 MCG/DL [facility] MAIN LAB % Saturation 8 (L) 28 - 42 % [facility] MAIN LAB Ferritin 259 (H) 10 - 200 NG/ML [facility] MAIN LAB Performing Organization Address [facility] Phone Number [facility] MAIN LAB [address] [place] [address] * FOLATE, SERUM (04/06/2018 3:00 AM CDT) Serum Folate >23.4 >3.9 NG/ML [facility] MAIN LAB Comment: SLT HEMOLYSIS NOTE NEW REFERENCE RANGES Performing Organization Address [facility] Phone Number [facility] MAIN LAB [address] [place] [address] * VITAMIN B12 (04/06/2018 3:00 AM CDT) Vitamin B12 1,234 (H) 180 - 914 PG/ML [facility] MAIN LAB Performing Organization Address [facility] Phone Number [facility] MAIN LAB [address] [place] [phone] * PTT (APTT) (04/06/2018 3:00 AM CDT) APTT 20.4Comment: NOTE NEW 20.0 - 36.0 SEC [facility] MAIN LAB REFERENCE RANGES Specimen Blood Performing Organization Address [facility] Phone Number [facility] MAIN LAB [address] [place] [address] * BASIC METABOLIC PANEL (04/06/2018 3:00 AM [...] for questions. Specimen Blood Performing Organization Address City/[facility]/Zipcode Phone Number MAIN LAB [address] [place] [address] * CBC (04/06/2018 3:00 AM CDT) White Blood Cells 4.5 4.5 - 11.0 K/UL [facility] MAIN LAB RBC 2.58 (L) 4.0 - 5.0 M/UL [facility] MAIN LAB Hemoglobin 8.2 (L) 12.0 - 15.0 GM/DL MAIN LAB Hematocrit 24.8 (L) 36 - 45 % MAIN LAB MCV 96.2 80 - 100 FL MAIN LAB MCH 32.0 26 - 34 PG MAIN LAB MCHC 33.2 32.0 - 36.0 G/DL MAIN LAB RDW 17.2 (H) 11 - 15 % MAIN LAB Platelet Count 132 (L) 150 - 400 K/UL MAIN LAB MPV 8.9 7 - 11 FL MAIN LAB Specimen Blood Performing Organization Address City/[facility] Phone Number MAIN LAB [address] [place] [phone] * PROTIME INR (PT) (04/06/2018 3:00 AM CDT) INR 1.6 (H) 0.8 - 1.2 MAIN LAB Specimen Blood Performing Organization Address City/[facility]/Zipcode Phone Number MAIN LAB [address] [place] [phone] * CBC (04/05/2018 9:48 PM CDT) White Blood Cells 5.3 4.5 - 11.0 K/UL MAIN LAB RBC 2.64 (L) 4.0 - [...] Count 145 (L) 150 - 400 K/UL [facility] MAIN LAB MPV 8.0 7 - 11 FL [facility] MAIN LAB Specimen Blood Performing Organization Address City/[facility] Phone Number MAIN LAB [address] [place] [address] * POC GLUCOSE (04/05/2018 9:00 PM CDT) Glucose, POC 185 (H) 70 - 100 MG/DL [facility] MAIN LAB Performing Organization Address [facility] Phone Number MAIN LAB [address] [place] [address] * POC GLUCOSE (04/05/2018 4:17 PM CDT) Glucose, POC 186 (H) 70 - 100 MG/DL MAIN LAB Performing Organization Address [facility] Phone Number MAIN LAB [address] [place] [address] * PTT (APTT) (04/05/2018 2:10 PM CDT) APTT 96.5 (H)Comment: NOTE NEW 20.0 - 36.0 SEC MAIN LAB REFERENCE RANGES Specimen Blood Performing Organization Address [facility] Phone Number MAIN LAB [address] [place] [address] * CBC (04/05/2018 2:10 PM CDT) White Blood Cells 4.7 4.5 - 11.0 K/UL MAIN LAB RBC 2.59 (L) 4.0 - 5.0 M/UL [facility] MAIN LAB Hemoglobin 8.2 (L) 12.0 - 15.0 GM/DL [facility] MAIN LAB Hematocrit 25.2 (L) 36 - 45 % [facility] MAIN LAB MCV 97.1 80 - 100 FL K[facility] MAIN LAB MCH 31.8 26 - 34 PG MAIN LAB MCHC 32.7 32.0 - 36.0 G/DL MAIN LAB RDW 18.1 (H) 11 - 15 % MAIN LAB Platelet Count 139 (L) 150 - 400 K/UL MAIN LAB MPV 8.2 7 - 11 FL MAIN LAB Specimen Blood Performing Organization Address [facility] Phone Number MAIN LAB [address] [place] [address] * POC GLUCOSE (04/05/2018 1:48 PM CDT) Glucose, POC 160 (H) 70 - 100 MG/DL [facility] MAIN LAB Performing Organization Address [facility] Phone Number MAIN LAB [address] [place] [address] * POC GLUCOSE (04/05/2018 9:03 AM CDT) Glucose, POC 199 (H) 70 - 100 MG/DL MAIN LAB Performing Organization Address [facility] Phone Number [facility] LAB [address] [place] [address] * CHEST SINGLE VIEW (04/05/2018 6:11 AM [...] on 04/05/2018 8:36 AM. Performing Organization Address [facility] Phone Number [facility] RESULTS * MAGNESIUM (04/05/2018 4:24 AM CDT) Magnesium 1.9 1.6 - 2.6 mg/dL MAIN LAB Performing Organization Address [facility] Phone Number MAIN LAB [address] [place] [address] * PTT (APTT) (04/05/2018 4:24 AM CDT) APTT 111.3 (H)Comment: NOTE NEW 20.0 - 36.0 SEC [facility] MAIN LAB REFERENCE RANGES Specimen Blood Performing Organization Address [facility] Phone Number MAIN LAB [address] [place] [address] * BASIC METABOLIC PANEL (04/05/2018 4:24 AM [...] for questions. Specimen Blood Performing Organization Address City/[facility] Phone Number MAIN LAB [address] [place] [address] * CBC (04/05/2018 4:24 AM CDT) White [...] MAIN LAB Specimen Blood Performing Organization Address [facility] Phone Number MAIN LAB [address] [place] [address] * PROTIME INR (PT) (04/05/2018 4:24 AM CDT) INR 1.5 (H) 0.8 - 1.2 MAIN LAB Specimen Blood Performing Organization Address [facility] Phone Number MAIN LAB [address] [place] [address] * POC GLUCOSE (04/04/2018 8:15 PM CDT) Glucose, POC 242 (H) 70 - 100 MG/DL [facility] MAIN LAB Performing Organization Address [facility] Phone Number [facility] MAIN LAB [address] [place] [address] * POC GLUCOSE (04/04/2018 1:22 PM CDT) Glucose, POC 150 (H) 70 - 100 MG/DL [facility] MAIN LAB Performing Organization Address [facility] Phone Number [facility] MAIN LAB [address] [place] [address] * POC GLUCOSE (04/04/2018 6:53 AM CDT) Glucose, POC 138 (H) 70 - 100 MG/DL [facility] MAIN LAB Performing Organization Address [facility] Phone Number [facility] MAIN [facility] [address] [place] [address] * CHEST SINGLE VIEW (04/04/2018 5:11 AM [...] on 04/04/2018 9:11 AM. Performing Organization Address [facility] Phone Number RAD RESULTS * MAGNESIUM (04/04/2018 4:34 AM CDT) Magnesium 1.7 1.6 - 2.6 mg/dL [facility] MAIN LAB Specimen Blood Performing Organization Address [facility] Phone Number MAIN LAB [address] [place] [address] * BASIC METABOLIC PANEL (04/04/2018 4:34 AM [...] for questions. Specimen Blood Performing Organization Address [facility] Phone Number MAIN LAB [address] [place] [address] * CBC (04/04/2018 4:34 AM CDT) White Blood Cells 4.6 4.5 - 11.0 K/UL [facility] MAIN LAB RBC 2.55 (L) 4.0 - 5.0 M/UL [facility] MAIN LAB Hemoglobin 8.1 (L) 12.0 - 15.0 GM/DL MAIN LAB Hematocrit 24.9 (L) 36 - 45 % MAIN LAB MCV 97.6 80 - 100 FL MAIN LAB MCH 31.8 26 - 34 PG MAIN LAB MCHC 32.6 32.0 - 36.0 G/DL MAIN LAB RDW 18.7 (H) 11 - 15 % MAIN LAB Platelet Count 146 (L) 150 - 400 K/UL MAIN LAB MPV 8.1 7 - 11 FL MAIN LAB Specimen Blood Performing Organization Address City/[facility] Phone Number MAIN LAB [address] [place] [phone] * PTT (APTT) (04/04/2018 4:34 AM CDT) APTT 105.4 (H)Comment: NOTE NEW 20.0 - 36.0 SEC MAIN LAB REFERENCE RANGES Specimen Blood Performing Organization Address [facility] Phone Number MAIN LAB [address] [place] [address] * PROTIME INR (PT) (04/04/2018 4:34 AM CDT) INR 1.4 (H) 0.8 - 1.2 MAIN LAB Specimen Blood Performing Organization Address [facility] Phone Number MAIN LAB [address] [place] [phone] * POC GLUCOSE (04/03/2018 8:55 PM CDT) Glucose, POC 133 (H) 70 - 100 MG/DL MAIN LAB Performing Organization Address [facility] Phone Number MAIN LAB [address] [place] [address] * HEMOGLOBIN & HEMATOCRIT (04/03/2018 8:11 PM CDT) Hemoglobin 8.1 (L) 12.0 - 15.0 GM/DL MAIN LAB Hematocrit 24.1 (L) 36 - 45 % MAIN LAB Specimen Blood Performing Organization Address [facility] Phone Number MAIN LAB [address] [place] [address] * POC GLUCOSE (04/03/2018 7:53 PM CDT) Glucose, POC 127 (H) 70 - 100 MG/DL MAIN LAB Performing Organization Address City/[facility] Phone Number [facility] MAIN LAB [address] [place] [address] * POC GLUCOSE (04/03/2018 4:54 PM CDT) Glucose, POC 180 (H) 70 - 100 MG/DL [facility] MAIN LAB Performing Organization Address [facility] Phone Number [facility] MAIN LAB [address] [place] [address] * POC GLUCOSE (04/03/2018 11:46 AM CDT) Glucose, POC 185 (H) 70 - 100 MG/DL [facility] MAIN LAB Performing Organization Address [facility] Phone Number [facility] MAIN LAB [address] [place] [address] * POC GLUCOSE (04/03/2018 6:24 AM CDT) Glucose, POC 212 (H) 70 - 100 MG/DL [facility] MAIN LAB Performing Organization Address [facility] Phone Number [facility] MAIN LAB [address] [place] [address] * CHEST SINGLE VIEW (04/03/2018 6:05 AM [...] on 04/03/2018 9:55 AM. Performing Organization Address [facility] Phone Number RAD RESULTS * PTT (APTT) (04/03/2018 4:24 AM CDT) APTT 96.4 (H)Comment: NOTE NEW 20.0 - 36.0 SEC [facility] MAIN LAB REFERENCE RANGES Specimen Blood Performing Organization Address [facility] Phone Number MAIN LAB [address] [place] [address] * MAGNESIUM (04/03/2018 4:24 AM CDT) Magnesium 1.8 1.6 - 2.6 mg/dL [facility] MAIN LAB Specimen Blood Performing Organization Address [facility] Phone Number MAIN LAB [address] [place] [address] * BASIC METABOLIC PANEL (04/03/2018 4:24 AM [...] for questions. Specimen Blood Performing Organization Address City/[facility]/Zipcode Phone Number MAIN LAB [address] [place] [address] * CBC (04/03/2018 4:24 AM CDT) White Blood Cells 5.1 4.5 - 11.0 K/UL MAIN LAB RBC 2.53 (L) 4.0 - 5.0 M/UL MAIN LAB Hemoglobin 8.0 (L) 12.0 - 15.0 GM/DL [facility] MAIN LAB Hematocrit 24.6 (L) 36 - 45 % [facility] MAIN LAB MCV 97.2 80 - 100 FL MAIN LAB MCH 31.6 26 - 34 PG MAIN LAB MCHC 32.5 32.0 - 36.0 G/DL MAIN LAB RDW 18.0 (H) 11 - 15 % MAIN LAB Platelet Count 158 150 - 400 K/UL MAIN LAB MPV 8.4 7 - 11 FL MAIN LAB Specimen Blood Performing Organization Address City/[facility] Phone Number [facility] MAIN [facility] [address] [place] [address] * PTT (APTT) (04/02/2018 9:04 PM CDT) APTT 85.7 (H)Comment: NOTE NEW 20.0 - 36.0 SEC [facility] MAIN LAB REFERENCE RANGES Specimen Blood Performing Organization Address City/[facility] Phone Number MAIN LAB [address] [place] [address] * POC GLUCOSE (04/02/2018 8:52 PM CDT) Glucose, POC 192 (H) 70 - 100 MG/DL [facility] MAIN LAB Performing Organization Address City/[facility]/Zipcode Phone Number MAIN LAB [address] [place] [address] * POC GLUCOSE (04/02/2018 5:15 PM CDT) Glucose, POC 170 (H) 70 - 100 MG/DL [facility] MAIN LAB Performing Organization Address [facility] Phone Number MAIN LAB [address] [place] [address] * PTT (APTT) (04/02/2018 2:00 PM CDT) APTT 88.1 (H)Comment: NOTE NEW 20.0 - 36.0 SEC [facility] MAIN LAB REFERENCE RANGES Specimen Blood Performing Organization Address [facility] Phone Number [facility] MAIN [facility] [address] [place] [address] * POC GLUCOSE (04/02/2018 11:38 AM CDT) Glucose, POC 189 (H) 70 - 100 MG/DL [facility] MAIN LAB Performing Organization Address [facility] Phone Number [facility] MAIN [facility] [address] [place] [address] * POC GLUCOSE (04/02/2018 6:57 AM CDT) Glucose, POC 174 (H) 70 - 100 MG/DL [facility] MAIN LAB Performing Organization Address [facility] Phone Number [facility] MAIN [facility] [address] [place] [address] * PTT (APTT) (04/02/2018 5:20 AM CDT) APTT 126.3 (H)Comment: NOTE NEW 20.0 - 36.0 SEC [facility] MAIN LAB REFERENCE RANGES Specimen Blood Performing Organization Address [facility] Phone Number [facility] MAIN [facility] [address] [place] [address] * MAGNESIUM (04/02/2018 5:20 AM CDT) Magnesium 1.7 1.6 - 2.6 mg/dL [facility] MAIN LAB Specimen Blood Performing Organization Address [facility] Phone Number [facility] MAIN [facility] [address] [place] [address] * BASIC METABOLIC PANEL (04/02/2018 5:20 AM [...] for questions. Specimen Blood Performing Organization Address City/[facility]/Zipcode Phone Number MAIN LAB [address] [phone] * CBC (04/02/2018 5:20 AM CDT) White [...] MAIN LAB Specimen Blood Performing Organization Address City/[facility] Phone Number MAIN LAB [address] [phone] * CHEST SINGLE VIEW (04/02/2018 4:54 AM [...] MAIN LAB Specimen Blood Performing Organization Address City/[facility]/Zipcode Phone Number [facility] MAIN LAB [address] [place] [address] * PTT (APTT) (04/01/2018 11:24 PM CDT) APTT 26.4Comment: NOTE NEW 20.0 - 36.0 SEC [facility] MAIN LAB REFERENCE RANGES Specimen Blood Performing Organization Address [facility] [facility] [place] Phone Number [facility] [address] [place] [address] * POC GLUCOSE (04/01/2018 9:12 PM CDT) Glucose, POC 193 (H) 70 - 100 MG/DL [facility] Performing Organization Address [facility] Phone Number [facility] [address] [place] [address] * CT HEAD WO CONTRAST (04/01/2018 7:51 [...] for questions. Specimen Blood Performing Organization Address City/[facility] Phone Number MAIN LAB [address] [place] [address] * POC GLUCOSE (04/01/2018 5:57 PM CDT) Glucose, POC 143 (H) 70 - 100 MG/DL [facility]IN [facility] Performing Organization Address [facility] Phone Number MAIN LAB [address] [place] [address] * POC GLUCOSE (04/01/2018 12:13 PM CDT) Glucose, POC 140 (H) 70 - 100 MG/DL MAIN LAB Performing Organization Address [facility] Phone Number MAIN LAB [address] [place] [address] * BLOOD GASES, PERIPHERAL VENOUS (04/01/2018 11:55 AM CDT) pH-Venous 7.24 (L) 7.30 - 7.40 MAIN LAB PCO2-Venous 65 (H) 36 - 50 MMHG MAIN LAB PO2-Venous 44 33 - 48 MMHG MAIN LAB Base Deficit-Venous 0.9 MMOL/L MAIN LAB O2 Sat-Venous 74.1 (H) 55 - 71 % MAIN LAB Zyplkeeqfum-USG-Mcx 23.4 MMOL/L MAIN LAB Specimen Blood, venous - Blood Performing Organization Address [facility] Phone Number MAIN LAB [address] [place] [address] * EOSINOPHIL STAIN (04/01/2018 11:40 AM CDT) Battery Name EOSINOPHIL STAIN MAIN LAB Specimen Description URINE MAIN LAB Special Requests NONE MAIN LAB Ahuja's Stain NO EOSINOPHILS SEEN MAIN LAB Report Status FINAL MAIN LAB 04/02/2018 Specimen Urine Performing Organization Address [facility] Phone Number MAIN LAB [address] [place] [address] * CREATININE-URINE RANDOM (04/01/2018 11:40 AM CDT) Creatinine, Random 209 MG/DL MAIN LAB Specimen Urine - Urine Performing Organization Address [facility] Phone Number [facility] [address] [place] [address] * UREA NITROGEN-URINE RANDOM (04/01/2018 11:40 AM CDT) Urea Nitrogen 294 MG/DL [facility] MAIN [facility] Specimen Urine - Urine Performing Organization Address [facility] Phone Number [facility] [address] [place] [address] * SODIUM-URINE RANDOM (04/01/2018 11:40 AM CDT) Sodium, Random 11 MMOL/L [facility]IN [facility] Specimen Urine - Urine Performing Organization Address [facility] Phone Number [facility] [address] [place] [address] * UA REFLEX CULTURE LABEL (04/01/2018 11:40 AM CDT) UA Reflex Culture LAB LABEL [facility] MAIN [facility] Specimen Urine Performing Organization Address [facility] Phone Number [facility] [address] [place] [address] * URINALYSIS MICROSCOPIC REFLEX TO CULTURE (04/01/2018 [...] MAIN LAB Specimen Urine Performing Organization Address [facility] Phone Number [facility] [address] [place] [address] * URINALYSIS DIPSTICK REFLEX TO CULTURE (04/01/2018 11:40 AM CDT) Color,UA YELLOW [facility] MAIN [facility] Turbidity,UA 1+ (A) CLEAR-CLEAR [facility] MAIN [facility] Specific [place]-Urine 1.014 1.003 - 1.035 [facility] MAIN LAB [...] MAIN LAB Specimen Urine Performing Organization Address [facility] Phone Number [facility] [address] [place] [address] * POC GLUCOSE (04/01/2018 8:25 AM CDT) Glucose, POC 169 (H) 70 - 100 MG/DL [facility]IN [facility] Performing Organization Address [facility] Phone Number MAIN LAB [address] [place] [address] * URIC ACID (04/01/2018 7:50 AM CDT) Uric Acid 13.7 (H) 2.0 - 7.0 MG/DL MAIN LAB Specimen Blood Performing Organization Address [facility] Phone Number MAIN LAB [address] [place] [address] * CREATINE KINASE-CPK (04/01/2018 7:50 AM CDT) Creatine Kinase 16 (L) 21 - 215 U/L MAIN LAB Specimen Blood Performing Organization Address [facility] Phone Number [facility] [address] [place] [address] * MAGNESIUM (04/01/2018 7:50 AM CDT) Magnesium 1.7 1.6 - 2.6 mg/dL MAIN LAB Specimen Blood Performing Organization Address [facility] Phone Number [facility] [address] [place] [address] * CBC AND DIFF (04/01/2018 7:50 AM [...] MAIN LAB Specimen Blood Performing Organization Address City/[facility] Phone Number [facility] [address] [place] [address] * BASIC METABOLIC PANEL (04/01/2018 7:50 AM [...] LAB Calcium 9.6 8.5 - 10.6 MG/DL MAIN LAB eGFR Non 16 (L) >60 mL/min [facility] MAIN [facility] Comment: The eGFR is not validated for use in drug dosing adjustments.Continue to use estimated creatinine clearance per dosing reference text.Please contact the Clinical Pharmacist for questions. eGFR 19 (L) >60 mL/min MAIN LAB Comment: The eGFR is not validated for use in drug dosing adjustments.Continue to use estimated creatinine clearance per dosing reference text.Please contact the Clinical Pharmacist for questions. Specimen Blood Performing Organization Address City/[facility] Phone Number [facility] [address] [place] [address] * CHEST SINGLE VIEW (04/01/2018 6:20 AM [...] 95.0 95 - 99 % MAIN LAB Vczmuooyokf-TEE-Xto 23.7 21 - 28 MMOL/L MAIN LAB Specimen Blood, arterial - Blood Performing Organization Address City/[facility]/Zipcode Phone Number MAIN LAB [address] [place] [address] * CULTURE-BLOOD W/SENSITIVITY (03/31/2018 9:58 PM CDT) Battery Name BLOOD CULTURE MAIN LAB Specimen Description BLOOD MAIN LAB LEFT ANTECUBITAL Special Requests NONE MAIN LAB Culture NO GROWTH 5 DAYS MAIN LAB Report Status FINAL MAIN LAB 04/06/2018 Specimen Blood Performing Organization Address City/[facility] Phone Number MAIN LAB [address] [place] [address] * LACTIC ACID (BG - RAPID LACTATE) (03/31/2018 9:50 PM CDT) Lactic Acid,BG 1.3 0.5 - 2.0 MMOL/L MAIN LAB Specimen Blood Performing Organization Address City/[facility] Phone Number MAIN LAB [address] [place] [address] * CULTURE-BLOOD W/SENSITIVITY (03/31/2018 9:50 PM CDT) Battery Name BLOOD CULTURE MAIN LAB Specimen Description BLOOD MAIN LAB RIGHT ANTECUBITAL Special Requests NONE MAIN LAB Culture NO GROWTH 5 DAYS MAIN LAB Report Status FINAL MAIN LAB 04/06/2018 Specimen Blood Performing Organization Address City/[facility]/Zipcode Phone Number MAIN LAB [address] [place] [address] * POC GLUCOSE (03/31/2018 9:12 PM CDT) Glucose, POC 160 (H) 70 - 100 MG/DL MAIN LAB Performing Organization Address City/[facility]/Zipcode Phone Number MAIN LAB [address] [place] [address] * POC GLUCOSE (03/31/2018 5:48 PM CDT) Glucose, POC 173 (H) 70 - 100 MG/DL [facility] MAIN [facility] Performing Organization Address City/[facility]/Zipcode Phone Number MAIN LAB [address] [place] [address] * COMPREHENSIVE METABOLIC PANEL (03/31/2018 3:35 PM [...] LAB Anion Gap 8 3 - 12 MAIN LAB eGFR Non 15 (L) >60 [...] Blood Performing Organization Address City/State/Zipcode Phone Number JONATHAN MAIN LAB [address] [place] [address] * POC GLUCOSE (03/31/2018 12:17 PM CDT) Glucose, POC 137 (H) 70 - 100 MG/DL [facility] MAIN [facility] Performing Organization Address City/[facility]/Zipcode Phone Number JONATHAN [facility]IN LAB [address] [facility] [place] [address] * 2-D + DOPPLER ECHOCARDIOGRAM (03/31/2018 11:57 [...] <=0.42 OTHER OUTSIDE LAB Cardiology Ultrasound Siemens [id number] OTHER OUTSIDE LAB Machine Left Ventricle Mass Index 86.94 44 - 88 g/m2 OTHER OUTSIDE LAB CV ECHO PV GRADE TAMPER Marissa CHANDLER OTHER OUTSIDE LAB TV rest [...] LAB Performing Organization Address City/State/Zipcode Phone Number [employer] MAIN LAB [address] [place] [address] * CHEST SINGLE VIEW (03/31/2018 4:50 AM [...] Progressing atelectasis of the left lung. Dr. aHuser discussed the findings and recommendations with the [...] AM. Performing Organization Address City/State/Zipcode Phone Number RAD RESULTS * BLOOD GASES, ARTERIAL (03/31/2018 4:45 AM CDT) pH-Arterial 7.30 (L) 7.35 - 7.45 [facility] MAIN [facility] pCO2-Arterial 50 (H) 35 - 45 MMHG [facility] MAIN [facility] pO2-Arterial 76 (L) 80 - 100 MMHG [facility] MAIN [facility] Base Deficit-Arterial 2.2 MMOL/L [facility] MAIN [facility] O2 Sat-Arterial 94.8 (L) 95 - 99 % [facility] MAIN [facility] Favelavtlja-IEP-Kfw 22.5 21 - 28 MMOL/L MAIN LAB Specimen Blood, arterial - Blood Performing Organization Address City/State/Zipcode Phone Number MAIN LAB [address] [place] [address] * COMPREHENSIVE METABOLIC PANEL (03/31/2018 3:50 AM [...] for questions. Specimen Blood Performing Organization Address City/[facility]/Zipcode Phone Number [facility]IN [facility] [address] [place] [address] * CBC AND DIFF (03/31/2018 3:50 AM [...] LAB Eosinophils 3 0 - 5 % [facility] MAIN LAB [...] MAIN LAB Specimen Blood Performing Organization Address [facility] Phone Number [facility] [address] [place] [address] * POC GLUCOSE (03/30/2018 9:31 PM CDT) Glucose, POC 162 (H) 70 - 100 MG/DL [facility]IN [facility] Performing Organization Address [facility]/Zipcode Phone Number [facility]IN [facility] [address] [place] [address] * POC GLUCOSE (03/30/2018 5:25 PM CDT) Glucose, POC 138 (H) 70 - 100 MG/DL [facility] MAIN [facility] Performing Organization Address City/[facility]/Zipcode Phone Number [facility]IN [facility] [address] [place] [address] * US RENAL [employer]ADDER LTD (03/30/2018 4:21 [...] on 03/30/2018 4:22 PM. Performing Organization Address City/[facility] Phone Number [facility] RAD RESULTS * POC GLUCOSE (03/30/2018 12:48 PM CDT) Glucose, POC 187 (H) 70 - 100 MG/DL [facility] MAIN [facility] Performing Organization Address City/[facility]/Zipcode Phone Number [facility]IN [facility] [address] [place] [address] * OSMOLALITY-URINE RANDOM (03/30/2018 12:31 PM CDT) Osmolality-Urine 364 50 - 1,400 MOS/KG [facility] MAIN [facility] Specimen Urine - Urine Performing Organization Address [facility] Phone Number [facility] [address] [place] [address] * UREA NITROGEN-URINE RANDOM (03/30/2018 12:31 PM CDT) Urea Nitrogen 311 MG/DL [facility] MAIN [facility] Specimen Urine - Urine Performing Organization Address [facility] Phone Number [facility] [address] [place] [address] * CREATININE-URINE RANDOM (03/30/2018 12:31 PM CDT) Creatinine, Random 244 MG/DL [facility] MAIN [facility] Specimen Urine - Urine Performing Organization Address [facility] Phone Number [facility] [address] [place] [address] * UA REFLEX CULTURE LABEL (03/30/2018 12:30 PM CDT) UA Reflex Culture LAB LABEL [facility] MAIN [facility] Specimen Urine Performing Organization Address [facility] Phone Number [facility] [address] [place] [address] * URINALYSIS MICROSCOPIC REFLEX TO CULTURE (03/30/2018 [...] MAIN LAB Specimen Urine Performing Organization Address [facility] Phone Number [facility] [address] [place] [address] * URINALYSIS DIPSTICK REFLEX TO CULTURE (03/30/2018 12:30 PM CDT) Color,UA CARLIE [facility] MAIN [facility] Turbidity,UA 1+ (A) CLEAR-CLEAR [facility] MAIN [facility] Specific [place]-Urine 1.021 1.003 - 1.035 K[facility] MAIN LAB [...] MAIN LAB Specimen Urine Performing Organization Address [facility] Phone Number MAIN LAB [address] [place] [address] * TELEMETRY STRIPS-SCAN (03/30/2018 11:43 AM CDT) Narrative Performed At Ordered by an unspecified provider. * POC GLUCOSE (03/30/2018 9:02 AM CDT) Glucose, POC 195 (H) 70 - 100 MG/DL MAIN LAB Performing Organization Address [facility] Phone Number [facility] [address] [place] [address] * COMPREHENSIVE METABOLIC PANEL (03/30/2018 4:10 AM [...] for questions. Specimen Blood Performing Organization Address City/[facility]/Zipcode Phone Number [facility] MAIN [facility] [address] [place] [id number] * CBC AND DIFF (03/30/2018 4:10 AM [...] MAIN LAB Specimen Blood Performing Organization Address City/[facility]/Zipcode Phone Number [facility] MAIN [facility] [address] [place] [address] * CHEST SINGLE VIEW (03/30/2018 3:08 AM [...] City/State/Zipcode Phone Number [facility]IN [facility] [address] [place] [address] * POC GLUCOSE (03/29/2018 5:07 PM CDT) Glucose, POC 207 (H) 70 - 100 MG/DL MAIN LAB Performing Organization Address City/[facility] Phone Number MAIN LAB [address] [place] [address] * OSMOLALITY-URINE RANDOM (03/29/2018 4:02 PM CDT) Osmolality-Urine 342 50 - 1,400 MOS/KG MAIN LAB Specimen Urine - Urine Performing Organization Address City/[facility] Phone Number MAIN LAB [address] [place] [address] * UREA NITROGEN-URINE RANDOM (03/29/2018 4:02 PM CDT) Urea Nitrogen 247 MG/DL MAIN LAB Specimen Urine - Urine Performing Organization Address City/[facility] Phone Number MAIN LAB [address] [place] [address] * SODIUM-URINE RANDOM (03/29/2018 4:02 PM CDT) Sodium, Random 12 MMOL/L MAIN LAB Specimen Urine - Urine Performing Organization Address [place]/[facility] Phone Number MAIN LAB [address] [place] [address] * CREATININE-URINE RANDOM (03/29/2018 4:02 PM CDT) Creatinine, Random 194 MG/DL MAIN LAB Specimen Urine - Urine Performing Organization Address [facility] Phone Number MAIN LAB [address] [place] [address] * POC GLUCOSE (03/29/2018 11:33 AM CDT) Glucose, POC 214 (H) 70 - 100 MG/DL MAIN LAB Performing Organization Address City/[facility]/Zipcode Phone Number MAIN LAB [address] [place] [address] * POC GLUCOSE (03/29/2018 10:32 AM CDT) Glucose, POC 203 (H) 70 - 100 MG/DL MAIN LAB Performing Organization Address [place]/[facility] Phone Number MAIN LAB [address] [place] [address] * POC GLUCOSE (03/29/2018 8:37 AM CDT) Glucose, POC 215 (H) 70 - 100 MG/DL MAIN LAB Performing Organization Address City/State/Zipcode Phone Number MAIN LAB [address] [place] [address] * EGD REPORT (03/29/2018 7:42 AM CDT) Provation Report Patient Name: Donnie CASTILLO OTHER RESULTS Procedure Date: 03/29/2018 7:42 AM CSN: [id number] Date of : 1955 Gender: Female Attending Physician: Dannielle Covington MD Procedure: Upper GI endoscopy Indications: Iron deficiency anemia Providers: Dannielle Covington MD (Doctor), Conner Martines MD (Fellow), Myla Meza RN (Nurse), Lynette Aguero Chorus Dancer (Chorus Dancer) Referring Physician: Dominic Fuller MD, Deepak Rubin, Carla Wilson Medications: Monitored Anesthesia Care Complications: No immediate [...] of the duodenum were normal. Impression: - [place]-colored mucosa suspicious for Long's esophagus. Biopsy is [...] discussed her endoscopic findings with Dr. Maier (doors prefitter). 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 Please consult hepatology team for further management. Scope In: 11:08:40 AM Scope Out: 11:17:33 AM Total Procedure Duration Time 0 hours 8 minutes 53 seconds Procedure Code(s): --- Professional --- 60290, Esophagogastroduodenoscopy, flexible, transoral; diagnostic, including collection of specimen(s) by brushing or washing, when performed (separate procedure) Diagnosis Code(s): --- Professional --- K22.8, Other specified diseases of esophagus I85.00, Esophageal varices without bleeding K76.6, Portal hypertension K31.89, Other diseases of stomach and duodenum K31.819, Angiodysplasia of stomach and duodenum without bleeding D50.9, Iron deficiency anemia, unspecified CPT copyright 2016 [employer]. All rights reserved. The codes documented in this report are preliminary and upon senior systems engineer review may be revised to meet current compliance requirements. Attending Participation: I was present and participated during the entire procedure, including non-dempsey portions. MD Dannielle Velázquez MD 03/29/2018 12:03:01 PM The attending physician has electronically signed and finalized this document. Conner Martines MD Number of Addenda: 0 Note Initiated On: 03/29/2018 7:42 AM Performing Organization Address City/State/Zipcode Phone Number JONATHAN OTHER RESULTS * COMPREHENSIVE METABOLIC PANEL (03/29/2018 [...] Phone Number MAIN LAB [address] [place] [address] * CBC AND DIFF (03/29/2018 5:00 AM [...] MAIN LAB Specimen Blood Performing Organization Address City/[facility] Phone Number [facility] [address] [place] [address] * POC GLUCOSE (03/28/2018 9:23 PM CDT) Glucose, POC 241 (H) 70 - 100 MG/DL [facility] MAIN [facility] Performing Organization Address City/[facility] Phone Number [facility] [address] [place] [address] * POC GLUCOSE (03/28/2018 5:14 PM CDT) Glucose, POC 231 (H) 70 - 100 MG/DL [facility] MAIN LAB Performing Organization Address City/[facility]/Zipcode Phone Number [facility] MAIN [facility] [address] [place] [address] * POC GLUCOSE (03/28/2018 1:13 PM CDT) Glucose, POC 196 (H) 70 - 100 MG/DL [facility] MAIN LAB Performing Organization Address [place]/[facility] Phone Number [facility] [address] [place] [address] * POC GLUCOSE (03/28/2018 9:24 AM CDT) Glucose, POC 219 (H) 70 - 100 MG/DL [facility] MAIN LAB Performing Organization Address City/[facility]/Zipcode Phone Number [facility] [address] [place] [address] * COMPREHENSIVE METABOLIC PANEL (03/28/2018 4:50 AM [...] Address City/State/Zipcode Phone Number MAIN LAB [address] [place] [address] * CBC AND DIFF (03/28/2018 4:50 AM CDT) White Blood Cells 5.5 4.5 - 11.0 K/UL [facility] MAIN LAB RBC 2.79 (L) 4.0 - 5.0 M/UL [facility] MAIN LAB Hemoglobin 8.8 (L) 12.0 - 15.0 GM/DL [facility] MAIN LAB Hematocrit 27.0 (L) 36 - 45 % [facility] MAIN LAB MCV 96.9 80 - 100 FL MAIN LAB MCH 31.5 26 - 34 PG MAIN LAB MCHC 32.5 32.0 - 36.0 G/DL MAIN LAB RDW 19.3 (H) 11 - 15 % [facility] MAIN LAB Platelet Count 157 150 - 400 K/UL MAIN LAB MPV 8.3 7 - 11 FL MAIN LAB Neutrophils 72 41 - 77 % [facility] MAIN LAB Lymphocytes 14 (L) 24 - 44 % [facility] MAIN [facility] Monocytes 9 4 - 12 % [facility] MAIN LAB Eosinophils 5 0 - 5 % MAIN LAB Basophils 0 0 - 2 % MAIN LAB Absolute Neutrophil Count 3.90 1.8 - 7.0 K/UL MAIN LAB Absolute Lymph Count 0.80 (L) 1.0 - 4.8 K/UL MAIN LAB Absolute Monocyte Count 0.50 0 - 0.80 K/UL MAIN LAB Absolute Eosinophil Count 0.30 0 - 0.45 K/UL MAIN LAB Absolute Basophil Count 0.00 0 - 0.20 K/UL [facility] MAIN LAB Specimen Blood Performing Organization Address City/[facility] Phone Number MAIN LAB [address] [place] [address] * POC GLUCOSE (03/27/2018 9:23 PM CDT) Glucose, POC 200 (H) 70 - 100 MG/DL [facility] MAIN LAB Performing Organization Address [facility] Phone Number MAIN LAB [address] [place] [address] * POC GLUCOSE (03/27/2018 6:31 PM CDT) Glucose, POC 201 (H) 70 - 100 MG/DL [facility] MAIN LAB Performing Organization Address [facility] Phone Number MAIN LAB [address] [place] [address] * ECG-SCAN (03/27/2018 11:05 AM CDT) Narrative Performed At Ordered by an unspecified provider. * POC GLUCOSE (03/27/2018 9:59 AM CDT) Glucose, POC 191 (H) 70 - 100 MG/DL [facility] MAIN LAB Performing Organization Address [facility] Phone Number [facility]IN [facility] [address] [place] [address] * POC GLUCOSE (03/27/2018 7:37 AM CDT) Glucose, POC 213 (H) 70 - 100 MG/DL [facility] MAIN LAB Performing Organization Address [facility] Phone Number MAIN LAB [address] [place] [address] * COMPREHENSIVE METABOLIC PANEL (03/27/2018 5:30 AM [...] for questions. Specimen Blood Performing Organization Address [facility]/Zipcode Phone Number MAIN LAB [address] [place] [address] * CBC AND DIFF (03/27/2018 5:30 AM [...] MAIN LAB Specimen Blood Performing Organization Address City/[facility] Phone Number MAIN LAB [address] [place] [address] * URINALYSIS, MICROSCOPIC (03/27/2018 2:59 AM CDT) WBCs,UA 0-2 0 - 2 /HPF K[facility] MAIN LAB RBCs,UA 0-2 0 - 3 /HPF K[facility] MAIN LAB MucousUA TRACE [facility] MAIN LAB Squamous Epithelial Cells 5-10 0 - 5 K[facility] MAIN LAB Hyaline Cast PACKED [facility] MAIN LAB Specimen Urine - Urine Performing Organization Address City/[facility]/Zipcode Phone Number MAIN LAB [address] [place] [address] * URINALYSIS DIPSTICK (03/27/2018 2:59 AM CDT) Color,UA YELLOW [facility] MAIN LAB Turbidity,UA CLEAR CLEAR-CLEAR [facility] MAIN LAB Specific [place]-Urine 1.015 1.003 - 1.035 K[facility] MAIN LAB [...] Specimen Urine - Urine Performing Organization Address [facility] Phone Number [facility]IN [facility] [address] [place] [address] * TRANSFUSE RBC'S NON-BLEEDING PT (03/26/2018 10:53 PM CDT) * TRANSFUSE RBC'S NON-BLEEDING PT (03/26/2018 10:53 PM CDT) * POC GLUCOSE (03/26/2018 9:29 PM CDT) Glucose, POC 233 (H) 70 - 100 MG/DL [facility] MAIN [facility] Performing Organization Address [facility] Phone Number [facility] [address] [place] [address] * POC GLUCOSE (03/26/2018 3:10 PM CDT) Glucose, POC 177 (H) 70 - 100 MG/DL [facility] MAIN [facility] Performing Organization Address [facility] Phone Number MAIN LAB [address] [place] [address] * CHEST X-RAY INSPIRATION/EXPIRATION (03/26/2018 1:41 PM [...] The needle was removed, and an 8 Setswana pigtail all purpose drainage catheter was advanced [...] The needle was removed, and an 8 Setswana pigtail all purpose drainage catheter was advanced [...] the drugs utilized were: Fentanyl and Versed Chauncey Blank M.D, the attending [...] STAPLES on 03/26/2018 4:41 PM. Dictated by yT Urrutia M.D. on 03/26/2018 2:14 PM. Performing Organization Address City/[facility] Phone Number RAD RESULTS * POC GLUCOSE (03/26/2018 7:57 AM CDT) Glucose, POC 210 (H) 70 - 100 MG/DL [facility] MAIN LAB Performing Organization Address [facility] Phone Number MAIN LAB [address] [id number] * CBC AND DIFF (03/26/2018 2:02 AM [...] 0.20 K/UL MAIN LAB Performing Organization Address [facility] Phone Number MAIN LAB [address] [place] [address] * COMPREHENSIVE METABOLIC PANEL (03/26/2018 2:02 AM [...] 10.6 MG/DL [facility] MAIN LAB Total Protein 7.0 6.0 - 8.0 G/DL [facility] MAIN LAB Total Bilirubin 0.5 0.3 - 1.2 MG/DL [facility] MAIN LAB Albumin 3.2 (L) 3.5 - 5.0 G/DL [facility] MAIN LAB Alk Phosphatase 75 25 - 110 U/L [facility] MAIN [facility] AST (SGOT) 17 7 - 40 U/L [facility] MAIN [facility] CO2 25 21 - 30 MMOL/L [facility] MAIN [facility] ALT (SGPT) 5 (L) 7 - 56 U/L [facility] MAIN [facility] Anion Gap 6 3 - 12 [facility] MAIN [facility] eGFR Non 36 (L) >60 mL/min [facility] MAIN LAB Comment: [...] Clinical Pharmacist for questions. Performing Organization Address City/[facility]/Zipcode Phone Number MAIN LAB [address] [place] [address] * TROPONIN-I (03/26/2018 2:02 AM CDT) Troponin-I 0.01 0.0 - 0.05 NG/ML MAIN LAB Specimen Blood Performing Organization Address City/[facility]/Zipcode Phone Number MAIN LAB [address] [place] [address] * POC GLUCOSE (03/25/2018 9:25 PM CDT) Glucose, POC 190 (H) 70 - 100 MG/DL MAIN LAB Performing Organization Address City/[facility]/Zipcode Phone Number MAIN LAB [address] [place] [address] * CULTURE-BLOOD W/SENSITIVITY (03/25/2018 8:58 PM CDT) Battery Name BLOOD CULTURE MAIN LAB Specimen Description BLOOD MAIN LAB LEFT UPPER ARM Special Requests NONE [facility] MAIN LAB Culture NO GROWTH 5 DAYS [facility] MAIN LAB Report Status FINAL [facility] MAIN LAB 03/31/2018 Specimen Blood Performing Organization Address City/[facility] Phone Number [facility] MA[facility] [address] [place] [address] * PHOSPHORUS (03/25/2018 8:53 PM CDT) Phosphorus 3.3Comment: NOTE NEW REFERENCE 2.0 - 4.5 MG/DL MAIN LAB RANGES Specimen Blood Performing Organization Address City/[facility] Phone Number MAIN LAB [address] [place] [address] * MAGNESIUM (03/25/2018 8:53 PM CDT) Magnesium 1.7 1.6 - 2.6 mg/dL MAIN LAB Specimen Blood Performing Organization Address [facility] Phone Number MAIN LAB [address] [place] [address] * TYPE & CROSSMATCH (03/25/2018 8:53 PM CDT) Units Ordered 1 MAIN LAB Crossmatch Expires 03/28/2018 MAIN LAB Record Check FOUND MAIN LAB ABO/RH(D) A POS MAIN LAB Antibody Screen NEG MAIN LAB Patient has a history of a clinically significant antibody. Unit Number [id number] MAIN LAB Blood Component Type RBC,ADSOL,LEUKO REDUCED MAIN LAB Unit Division 0 MAIN LAB Status OF Unit TRANSFUSED MAIN LAB Transfusion Status OK TO TRANSFUSE MAIN LAB Crossmatch Result COMPATIBLE, GEL MAIN LAB Specimen Blood Performing Organization Address [facility] Phone Number MAIN LAB [address] [place] [address] * LACTIC ACID (BG - RAPID LACTATE) (03/25/2018 8:53 PM CDT) Lactic Acid,BG 1.3 0.5 - 2.0 MMOL/L MAIN LAB Specimen Blood Performing Organization Address [facility] Phone Number MAIN LAB [address] [place] [address] * CULTURE-BLOOD W/SENSITIVITY (03/25/2018 8:53 PM CDT) Battery Name BLOOD CULTURE [facility] MAIN LAB Specimen Description BLOOD MAIN LAB LEFT ANTECUBITAL Special Requests NONE [facility] MAIN LAB Culture NO GROWTH 5 DAYS [facility] MAIN LAB Report Status FINAL [facility] MAIN LAB 03/31/2018 Specimen Blood Performing Organization Address City/[facility] Phone Number JONATHAN MAIN LAB [address] [place] [address] * TROPONIN-I (03/25/2018 8:53 PM CDT) Troponin-I 0.01 0.0 - 0.05 NG/ML [facility] MAIN LAB Specimen Blood Performing Organization Address City/[facility] Phone Number MAIN LAB [address] [place] [address] * CT HEAD WO CONTRAST (03/25/2018 6:23 [...] on 03/25/2018 8:58 PM. Dictated by Chapincito Marse M.D. on 03/25/2018 8:54 PM. Narrative Performed [...] on 03/25/2018 8:54 PM. Performing Organization Address [facility] Phone Number RAD RESULTS * BNP POC ER (03/25/2018 4:16 PM CDT) BNP POC 327.0 (H) 0 - 100 PG/ML MAIN LAB Performing Organization [facility] Phone Number MAIN LAB [address] [place] [address] * POC TROPONIN (03/25/2018 4:09 PM CDT) Tqucqhfv-L-IRG 0.00 0.00 - 0.05 NG/ML MAIN LAB Performing Organization [facility] Phone Number MAIN LAB [address] [place] [address] * PHOSPHORUS (03/25/2018 4:07 PM CDT) Phosphorus 3.5Comment: NOTE NEW REFERENCE 2.0 - 4.5 MG/DL MAIN LAB RANGES Specimen Blood Performing Organization [facility] Phone Number MAIN LAB [address] [place] [address] * MAGNESIUM (03/25/2018 4:07 PM CDT) Magnesium 1.8 1.6 - 2.6 mg/dL MAIN LAB Specimen Blood Performing Organization [facility] Phone Number MAIN LAB [address] [place] [address] * COMPREHENSIVE METABOLIC PANEL (03/25/2018 4:07 PM CDT) Sodium 134 (L) 137 - 147 MMOL/L MAIN LAB Potassium 4.4 3.5 - 5.1 MMOL/L MAIN LAB Chloride 104 98 - 110 [...] Address City/State/Zipcode Phone Number [facility] MAIN LAB [address] [place] [address] * CBC AND DIFF (03/25/2018 4:07 PM [...] MAIN LAB Specimen Blood Performing Organization Address City/[facility] Phone Number [facility] MAIN LAB [address] [place] [address] * CHEST SINGLE VIEW (03/25/2018 3:50 PM [...] on 03/25/2018 4:28 PM. Performing Organization Address City/State/[facility] Phone Number [facility] RAD RESULTS * ECG-SCAN (03/25/2018 2:30 PM CDT) Narrative Performed At Ordered by an unspecified provider. in this encounter Visit Diagnoses Diagnosis GAVE (gastric antral vascular ectasia) Angiodysplasia of stomach and duodenum (without mention of hemorrhage) in this encounter Admitting Diagnoses Diagnosis Atrial [...] mg, Oral, THREE TIMES DAILY PRN, Starting 03/29/18 at 0642, Until Thu04/09/18 at 0003, Itching [...] , administer 4 units insulin, at , 03* administer 2 units. -POC glucose 221-260mg/dL at , , administer 6 units insulin, at , * administer 4 units. -POC glucose 261-300mg/dL at , , administer 8 units insulin, at , 03* administer 6 units. -POC glucose 301-350mg/dL at , , administer 10 units insulin, at , * administer 8 units. -POC glucose 351-400mg/dL at , , administer 12 units insulin, at , 03* administer 10 units. -POC glucose >400mg/dL at , , administer 14 units insulin, at , 03* administer 12 units. *only if ordered 5x's [...] 80 mg, Oral, DAILY, First dose on Thu03/25/18 at 2100, Until Discontinued, Do not crush [...]
--- OUTSIDE RECORDS SUMMARY | 2018-05-30 06:59 | XMS REPORT | Encounter Summary ---
Author Author [facility] Organization [facility] Address Unknown Phone Unavailable Care Team Providers Care Door Cutter Name Role Phone Carla Wilson MD PCP Naima Field MD Unavailable Winnie Jorge MD Unavailable Reason for Visit * Reason Comments Post-hospital Follow Up Encounter Details Care Team Description Date Type Department Felice Freitas RN Post-hospital Follow Up 03/01/2018 Telephone [facility] [address] [id number] Social History Date Tobacco Use Types Packs/Day [...] Status Date of Assessment Functional Status Response 02/13/2018 Does the patient have a hearing impairment: [...] encounter Miscellaneous Notes * Telephone Encounter - Felice Freitas RN - 03/01/2018 9:57 AM CDT Patient Discharge Date: 02/27 Surgeon: Pal Surgery: CABG Spoke with patient regarding status post-discharge. She reports "well I'm doing ok". She states she this AM her BP was 135/61, HR 120. She states her incisions are CDI, she is wondering if her lower EVH site has become slightly red, she states she has an apt in her PCP office with a covering provider today and she plans to discuss with that provider. She states she continues to feel "things taste funny", it was discussed inpatient that this was likely due to the anesthesia. She reports "I think I have something fungal going on too, b/c I've had that before and it was like this, I also feel itchy down below and I'm using some fluconazole for that". Patient reports she also plans to discuss this with her PCP. She states she is ambulating in her home and tolerating that well, discussed activity goals. She states she has continued to feel nausea since d/c, she denies any nausea this AM. She states "well, I told them I couldn 't take any statins, and they put me on one anyway, so I haven't been taking that and its helping my nausea". Updated her we do recommended she be on a medication to control her cholesterol, prevent future blockages, she will discuss with her seafood manager. Patient reports she is having daily BMs, and provided education on adjusting regimen to meet needs if necessary. Spoke with YANET Smith regarding patient status, and her tachycardia, recommended she f/ u with the EP group, or her current seafood manager if she would prefer that, as she makes statements that [facility] f/u is difficult since she [place] 2 [place] away. Spoke with patient, she would prefer to call and discuss with her local seafood manager. Recommended she call that office to discuss her HR, and also to request an SUNG apt to resume management. She states she will call them and notify us if she has any issues. Patient denies any issues/questions at this time. ADDENDUM: 03/02 - called patient to f/u on her status. She states she was evaluated by a nurse practitioner in her PCP office. She states they ordered nystatin rinse as well as diflucan for her itching in her radha-area, she states "I already feel that's getting better". She states her incisions were evaluated , she states the provider felt they were well healing and Instructed her to keep them clean/dry. She states "they look even better today". She states she has some swelling in her left leg, she reports this was also discussed and felt to be "ok", she states this "looks better today than yesterday". She reports she has an OV with a provider in her cardiology office tomorrow. Her HR today was 92. She plans to discuss statin therapy and transitioning from Maxzide back to Furosemide. She reports her PCP jose carlos labs and she will f/u on those, she also sees her eyeglass cutter tomorrow and will review with that office. Patient denies any issues/questions at this time. in this encounter Plan of Treatment Not on fileas of this encounter Visit Diagnoses Not on filein this encounter
--- OUTSIDE RECORDS SUMMARY | 2018-05-30 06:59 | XMS REPORT ---
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 Active 457315682 Problem Mixed hyperlipidemia E78.2 Active 689307039 Problem 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 Z79.4 Active 869332027 Problem Congestive heart failure, unspecified HF chronicity, unspecified heart failure type I50.9 Active 12124790 Problem S/P CABG x 4 Z95.1 Active 136208597 Problem 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 Active 113535969 Problem Type 2 diabetes mellitus with other circulatory complications E11.59 Active 46612752 Problem Non-insulin dependent type 2 diabetes mellitus E11.9 Active 66022130 Problem Acquired hypothyroidism E03.9 Active 695147626 Problem Coronary artery disease involving [place] coronary artery of [place] heart without angina pectoris I25.10 Active 3153706421495 Problem Angina pectoris syndrome I20.9 Active 181250464 Problem Essential hypertension I10 Active 11739947 Problem Persistent atrial fibrillation I48.1 Active 713056172 ALLERGIES No Information ENCOUNTERS Encounter Location Date Diagnosis [facility] [address], [place] [address] May, [facility] [id number], [place] [address] May, [facility] [address], [place] [address] Apr, Non-intractable cyclical vomiting with nausea G43.A0 [place] [address] [address] Apr, Non-intractable cyclical vomiting with nausea G43.A0 and Encounter for immunization Z23 [place] [address] [address] Apr, [place] [address] [address] Apr, [place] [address] [address] Apr, Essential hypertension I10 ; S/P CABG (coronary artery bypass graft) Z95.1 ; Non-insulin dependent type 2 diabetes mellitus E11.9 ; Coronary artery disease involving [place] coronary artery of [place] heart without angina pectoris I25.10 ; 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 ; Persistent atrial fibrillation I48.1 and BMI 40.0-44.9, adult Z68.41 [place] [address] [address] Mar, [place] [address] [address] Mar, [facility] [id number] [place] [address] Mar, Pain in left leg M79.605 and BMI 40.0-44.9, adult Z68.41 [place] [id number] [place] [address] 1993 17 Feb, 2018 S/P CABG x 4 Z95.1 ; 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 ; Typical atrial flutter I48.3 ; Candidiasis of mouth B37.0 ; Vaginal candidiasis B37.3 ; Type 2 diabetes mellitus with other specified complication E11.69 and custodial 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 Z79.4 [place] [address] [address] Jan, [facility] [address], [place] [address] Jan, [facility] [id number] [place] [address] Jan, [facility] [address] [place] [address] Jan, Non-insulin treated type 2 diabetes mellitus E11.9 ; Essential hypertension I10 ; Microcytic anemia D50.9 ; Persistent atrial fibrillation I48.1 and BMI 40.0-44.9, adult Z68.41 [facility] [id number] [place] [address] Jan, [facility] [id number] [place] [address] Dec, [facility] [id number] [place] [address]- [address] Dec, Acquired hypothyroidism E03.9 [facility] [address] [place] [address] 09[address] Dec, [facility] [id number] [place] [address] Dec, [facility] [address], [place] [address] Nov, Lower abdominal pain R10.30 and BMI 45.0-49.9, adult Z68.42 [facility] [address], [place] [address] Nov, BMI 45.0-49.9, adult Z68.42 [facility] [address] [place] [address] October, Congestive heart failure, unspecified HF chronicity, unspecified heart failure type I50.9 ; Acquired hypothyroidism E03.9 and BMI 45.0-49.9, adult Z68.42 [facility] [id number] [place] [address]47- [address] October, Shortness of breath R06.02 [place] [id number] [place] [address] October, [place] [id number] [place] [address]- [address] October, [place] [id number] [place] [address] 27[address]- 77[address] October, Essential hypertension I10 ; Coronary artery disease involving [place] coronary artery of [place] heart without angina pectoris I25.10 ; Angina pectoris syndrome I20.9 ; 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 and Persistent atrial fibrillation I48.1 [place] [id number] [place] [address] Sep, Coronary artery disease involving [place] coronary artery of [place] heart without angina pectoris I25.10 [place] [id number] [place] [address] Sep, [place] [id number] [place] [address] 639[address]- 1614 Sep, Angina pectoris syndrome I20.9 ; Paroxysmal atrial fibrillation I48.0 ; Microcytic anemia D50.9 ; 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 and 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 [place] [id number] [place] [address] 96762- 4[address] Aug, Non-insulin dependent type 2 diabetes mellitus E11.9 ; Microcytic anemia D50.9 ; Essential hypertension I10 and Acquired hypothyroidism E03.9 [place] [id number] [place] [address] 39[address] Jul, [place] [id number] [place] [address]- 1200 Jul, [place] [id number] [place] [address] 730[address]- [address] Jun, [place] [id number] [place] [address] 9[address]26- [address] May, [place] [address] [address] May, History of anemia Z86.2 [place] [address] [address] May, [place] [address] [address] May, [place] [address] [address] May, Non-insulin treated type 2 diabetes mellitus E11.[address] [address] Apr, Abdominal pain, left upper quadrant R10.12 ; Essential hypertension I10 ; Non-intractable cyclical vomiting with nausea G43.A0 ; Microcytic anemia D50.9 ; Mixed hyperlipidemia E78.2 and BMI 45.0-49.9, adult Z68.[address] [address] Apr, [address] [address] Apr, Non-insulin treated type 2 diabetes mellitus E11.9 ; Essential hypertension I10 and Acquired hypothyroidism E03.[address] [address] Mar, Encounter for immunization Z23 [address] [address] Mar, [address] [address] Feb, Microcytic anemia D50.9 ; Pain of left great toe M79.675 and Reflux gastritis K29.[address] [address] Feb, Coronary artery disease involving [place] coronary artery of [place] heart without angina pectoris I25.10 and Acquired hypothyroidism E03.9 [facility] [id number] [place] [address]13[address] 5[address] Jan, Psoriasis L40.9 ; Paroxysmal atrial fibrillation I48.0 ; Shortness of breath R06.02 and Microcytic anemia D50.9 [facility] [id number] [place] [address] 35892- 3919 Dec, [facility] [id number] [place] [address] 16082- 3[address] Dec, [place] [id number] [place] [address] 91[address]- 2782 Dec, Coronary artery disease involving [place] coronary artery of [place] heart without angina pectoris I25.10 [place] [address] [address] Nov, Therapeutic drug monitoring Z51.81 ; Essential hypertension I10 ; Microcytic anemia D50.9 and Shortness of breath R06.02 [place] [id number] [place] [address] 59593- 7297 Nov, Acquired hypothyroidism E03.9 [place] [id number] [place] [address] 15153- 7570 October, [facility] [id number] [place] [address] 6[address]01- 2[address] Sep, Coronary artery disease involving [place] coronary artery of [place] heart without angina pectoris I25.10 [place] [id number] [place] [address] 19889- [address] Aug, [place] [id number] [place] [address] 18510- 0180 Aug, Essential hypertension I10 [facility] [id number] [place] [address] 56304- 9[address] Jul, Acquired hypothyroidism E03.9 ; Essential hypertension I10 ; Non-insulin treated type 2 diabetes mellitus E11.9 and Coronary artery disease involving [place] coronary artery of [place] heart without angina pectoris I25.10 [facility] [address], [place] [address] 15 Jul, 2016 [place] [address] [place] [address] 79885- 5802 15 Jul, 2016 Angina pectoris syndrome I20.9 and Essential hypertension I10 [place] [address] [address] 03 Jul, 2016 [place] [id number] [place] [address] 22831- 4718 Jun, [facility] [address] [place] [address] 35731 -2172 May, Abscess L02.91 [place] [id number] [place] [address] 11103- 4070 22 Apr, 2016 Non-insulin dependent type 2 diabetes mellitus E11.9 ; Essential hypertension I10 ; Acquired hypothyroidism E03.9 ; History of anemia Z86.2 and Coronary artery disease involving [place] coronary artery of [place] heart without angina pectoris I25.10 [place] [address], [place] [address] 14 Apr, 2016 IMMUNIZATIONS No Known Immunizations SOCIAL HISTORY Never Assessed REASON FOR VISIT Returned call PLAN OF CARE VITAL SIGNS MEDICATIONS Unknown Medications RESULTS No Results PROCEDURES No Known procedures INSTRUCTIONS MEDICATIONS ADMINISTERED No Known Medications MEDICAL (GENERAL) HISTORY Type Description Date Medical History hypertension Medical History Hypothyrodism Medical History Type 2 diabetes mellitus without complications Medical History Anemia Medical History Chronic atrial fibrillation Medical History Arthritis Medical History Obesity Medical History GERD Medical History Watermelon Syndrome (GAVE Syndrome) Medical History Left pleural effusion post CABG Surgical History ankle reconstruction Surgical History 2 left knee othroscopy Surgical History tubligation Surgical History breast reduction Surgical History tonsillectomy and adenoidectomy Surgical History CABG x 4 by [facility] w/endoscopic vein harvest -PRIDE to LAD, reversed saphenous vein graft to OM and left posterolateral arteries and posterior descending branch of the RCA. Suture Ligation of Left Atrial Appendage 2018 Hospitalization History afbrillation 2009 Hospitalization History surgeries listed above Hospitalization History child Hospitalization History Atrial Fibrillation January 2017 Hospitalization History [place] 09/30 Hospitalization History [facility] for lasix and blood products 08/09/17 Hospitalization History Blood/blood products 11/2017
--- OUTSIDE RECORDS SUMMARY | 2018-05-30 06:59 | XMS REPORT | Encounter Summary ---
Author Author [facility] Address Unknown Phone Unavailable Care Team Providers Care Pipe Racker Name Role Phone Carla Wilson MD PCP Naima Field MD Unavailable Winnie Jorge MD Unavailable Reason for Visit * Reason Comments Post Operative Visit Post-Op CABG Encounter Details Care Team Description Date Type Department Lance Pal MD [address] [facility] [place] [address] [place] [address] PAF (paroxysmal atrial fibrillation) (HCC) (Primary Dx) 03/24/2018 Office Visit [facility] [place] [address] Social History Date Tobacco Use [...] Vital Signs Time Taken Vital Sign Reading 03/24/2018 1:18 PM CDT Blood Pressure 130/80 03/24/2018 1:18 PM CDT Pulse 123 - Temperature - - Respiratory Rate - 03/24/2018 1:18 PM CDT Oxygen Saturation 97% - Inhaled Oxygen - Concentration 03/24/2018 1:18 PM CDT Weight 113.4 kg (250 lb) 03/24/2018 1:18 PM CDT Height 162.6 cm (5' 4") 03/24/2018 1:18 PM CDT Body Mass Index 42.91 in this encounter Functional Status Date of [...] as of this encounter Progress Notes * Lance Pal MD - 03/24/2018 1:30 PM CDT Date of Service: 03/24/2018 Subjective: Deborah Fields is a 62 y.o. female. History of Present IllnessToday we had the pleasure of seeing your patient, Deborah Fields, in our office for routine postop follow up after coronary artery bypass times 4 with endoscopic vein harvesting with left internal mammary artery anastomosed to the LAD, reversed saphenous vein graft anastomosed in sequence to the obtuse marginal and left posterolateral arteries , and reversed saphenous vein graft anastomosed to the posterior descending branch of the right coronary artery, bilateral modified CryoMaze procedure ( pulmonary vein isolation) and suture ligation of left atrial appendage performed by Dr. Lance Pal on 02/16/18. She had a complex [...] She was eventually discharged home. Since discharge Deborah Fields states she has been doing well. She has been walking daily minimally. She has followed up with her senior software engineering manager in [facility] Dr. Jorge who recently saw her and [...] were negative. EKG performed in the office today revealed atrial flutter with a heart rate of 124. After lengthy discussions in the office between the patient, and EP and her home senior software engineering manager we would recommend better rate control. We did recommend admission to the hospital today in which she refused and would prefer to come back tomorrow morning. Unfortunately, she is uninsured at this time and is medically stable. We did contact her senior software engineering manager office and they are going to medically manage her. Patient was instructed if her rate continues to run in the 120s she should notify our office and may possibly need to present to the emergency room for further management. She verbalized understanding and agreed with this plan. Patient was informed that at 6 weeks from the date of surgery she may gradually increase the amount of weight that she is lifting. She should start at low weights and gradually work her way up. If there is no discomfort while doing it , then that is ok. If she has discomfort then she should stop. At 3 months from the date of surgery the sternum should be completely healed like it was never broken. If she has any questions or concerns she will notify our office otherwise we feel no further surgical follow-up is warranted. She will continue to follow with her PCP and senior software engineering manager for continued care. Thank you for the opportunity to participate in the care of Deborah Fields. Review of Systems Constitution: Negative. HENT: Negative. Eyes: Negative. Cardiovascular: Positive for chest pain, claudication, dyspnea on exertion, leg swelling and paroxysmal nocturnal dyspnea. Respiratory: Negative. Endocrine: Negative. Hematologic/Lymphatic: Negative. Skin: Positive for poor wound healing. Musculoskeletal: Negative. Gastrointestinal: Negative. Genitourinary: Negative. Neurological: Positive for dizziness. Psychiatric/Behavioral: Negative. Allergic/Immunologic: Negative. Objective: acetaminophen (TYLENOL) 325 mg tablet Take [...] Take one tablet by mouth twice daily. nitroglycerin (NITROSTAT) 0.4 [...] tablet Take one tablet by mouth daily. senna/docusate (SENOKOT-S) 8.6/50 mg tablet Take two tablets by mouth twice daily. sucralfate (CARAFATE) 1 gram tablet Take 1 g by mouth four times daily. Take on an empty stomach. traMADol (ULTRAM) 50 mg tablet Take one tablet by mouth every 6 hours as needed for Pain. Vitals: 03/24/18 1318 BP: 130/80 Pulse: (!) 123 SpO2: 97% Weight: 113.4 kg (250 lb) Height: 1.626 m (5' 4") Body mass index is 42.91 kg/m. Physical Exam Constitutional: She is oriented to person, place, and time. She appears well- developed and well-nourished. obese HENT: Head: Normocephalic and atraumatic. Eyes: Pupils are equal, round, and reactive to light. Conjunctivae and EOM are normal. Neck: Normal range of motion. Neck supple. Cardiovascular: Regular rhythm, S1 normal and S2 normal. Tachycardia present. Pulmonary/Chest: Effort normal. She has decreased breath sounds. Abdominal: Soft. Bowel sounds are normal. obese, round, soft, nontender Musculoskeletal: Normal range of motion. Edema: bilateral LE 2+ Neurological: She is alert and oriented to person, place, and time. Skin: Skin is warm and dry. midsternal and left EVH incisions are well healed and well approximated without exudate, erythema, or swelling. Sternum is stable with cough. Psychiatric: She has a normal mood and affect. Her behavior is normal. Judgment and thought content normal. BHUMI Whitt-Fernanda 03/24/18 @ 1640. Assessment and Plan: We have the pleasure of seeing Deborah Fields in the office for follow-up visit. Ms. Fields underwent coronary bypass surgery in early February here at [facility]. Her postoperative course was complicated by atrial fibrillation. She otherwise did fairly well. On examination the office today she is comfortable and afebrile her heart rate is 124 and on EKG it seems she is in atrial tachycardia. She says she has been feeling weak and out of energy. Her heart sounds were normal and she has no murmur. All of her incisions are healing well just good sternal stability. We talked with Ms. Fields and suggested that she be admitted to the hospital for control of her atrial tachycardia. She declined this. We have spoken to the office of her senior software engineering manager in [facility] and she is to receive follow- up there. We are happy to take care of her here if she changes her mind and wants to come back to be controlled. Thank you for allowing us to participate in the care of this nice lady. in this encounter Plan of Treatment Order Schedule Name Priority Associated Diagnoses Expected: 03/24/2018 (Approximate), Expires: 03/24/2019 ECG 12-LEAD Routine PAF (paroxysmal atrial fibrillation) (HCC) as of this encounter Visit Diagnoses Diagnosis PAF (paroxysmal atrial fibrillation) (HCC) - Primary Atrial fibrillation in this encounter
--- OUTSIDE RECORDS SUMMARY | 2018-05-30 06:59 | XMS REPORT | Encounter Summary ---
Author Author [facility] Organization [facility] Address Unknown Phone Unavailable Care Team Providers Care Eyeglass Frame Truer Name Role Phone Carla Wilson MD PCP Naima Field MD Unavailable Winnie Jorge MD Unavailable Reason for Visit * Reason Comments Medication Question Carafate Encounter Details Care Team Description Date Type Department Antolin Erazo Medication Question (Carafate) 03/05/2018 Telephone [facility] Level 2B [address] [place] [address] Social History Date Tobacco Use Types Packs/Day [...] Telephone Encounter - Fanny Pastrana RN - 03/05/2018 2:53 PM CDT Contacted pt on information below. Pt verbalized understanding. Pt had no further questions or concerns. * Telephone Encounter - Dannielle Covington MD - 03/05/2018 2:12 PM CDT Ok not to take Carafate. It has no effect on GAVE. * Telephone Encounter - Fanny Pastrana RN - 03/05/2018 10:59 AM CDT Pt left VM stating she was in hospital and d/c'ed on 02/27/18 and was wondering if she should still take Carafate. Pt stated she never received it at the hospital. 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 Pt called her PCP and other local doctors she sees in [place], [place]. All doctors informed her to call GI. Pt stated Carafate never helped and questioned if it actually helps GAVE. Pt still not taking it. Pt to see Dr. Erazo on Apr 28 for f/u. Routing to Dr. Erazo/Dr. Covington to advise. in this encounter Plan of Treatment Not on fileas of this encounter Visit Diagnoses Not on filein this encounter
--- OUTSIDE RECORDS SUMMARY | 2018-05-30 06:59 | XMS REPORT | Encounter Summary ---
Author Author [facility] Organization [facility] Address Unknown Phone Unavailable Care Team Providers Care Preconstruction Manager Name Role Phone Carla Wilson MD PCP Naima Field MD Unavailable Winnie Jorge MD Unavailable Encounter Details Care Team Description Date Type Department Lance Pal MD [address] [facility] [address] [place] [address] 03/24/2018 Hospital Cardiovascular Medicine Encounter [id number] [address] [place], [place] [id number] Social History Date Tobacco Use Types Packs/Day [...] cream affected area twice daily as needed folic acid (FOLVITE) 1 mg Take 1 [...] daily 30 minutes before breakfast. nitroglycerin (NITROSTAT) Place 0.4 mg 0 0.4 mg tablet under tongue every 5 minutes as needed for Chest Pain. Max of 3 tablets, call 911. omeprazole DR(+) Take 40 mg by 0 (PRILOSEC) 40 mg capsule mouth twice daily. ondansetron (ZOFRAN) 8 mg Take 8 mg by 0 tablet mouth every 8 hours as needed for Nausea or Vomiting. 02/27/2018 senna/docusate Take two 20 tablet 0 (SENOKOT-S) 8.6/50 mg tablets by tablet mouth twice daily. 02/27/2018 traMADol (ULTRAM) 50 mg Take one 30 tablet 0 tablet tablet by mouth every 6 hours as needed for Pain. 02/27/2018 03/26/2018 metoprolol tartrate Take one 30 tablet 1 (LOPRESSOR) 50 mg tablet tablet by mouth twice daily. 02/27/2018 03/26/2018 rosuvastatin (CRESTOR) 40 Take one 90 tablet 3 mg tablet tablet by mouth daily. 03/26/2018 sucralfate (CARAFATE) 1 Take 1 g by 0 gram tablet mouth four times daily. Take on an empty stomach. as of this encounter Plan of Treatment Not on fileas of this encounter Procedures Comments Procedure Name Priority Date/Time Associated Diagnosis ECG-SCAN 03/27/2018 11:10 AM CDT in this encounter Results * ECG-SCAN (03/27/2018 11:10 AM CDT) Narrative Performed At Ordered by an unspecified provider. in this encounter Visit Diagnoses Not on filein this encounter
--- OUTSIDE RECORDS SUMMARY | 2018-05-30 06:59 | XMS REPORT | Encounter Summary ---
Author Author [facility] Organization [facility] Address Unknown Phone Unavailable Care Team Providers Care Client Advocate Name Role Phone Carla Wilson MD PCP Naima Field MD Unavailable Winnie Jorge MD Unavailable Reason for Visit * Reason Comments Error Encounter Details Care Team Description Date Type Department Felice Freitas RN Error 03/02/2018 Telephone [facility] [place] [address] [address] [place] [address] Social History Date Tobacco Use Types Packs/Day [...]
--- OUTSIDE RECORDS SUMMARY | 2018-05-30 06:59 | XMS REPORT | Encounter Summary ---
Author Author [facility] Organization [facility] Address Unknown Phone Unavailable Care Team Providers Care Market Garden Worker Name Role Phone Carla Wilson MD PCP Naima Field MD Unavailable Winnie Jorge MD Unavailable Reason for Visit * Reason Comments General Question Encounter Details Care Team Description Date Type Department Sophie Avina RN General Question 03/15/2018 Telephone [facility] [place] [address] [address] [place], [place] [id number] Social History Date Tobacco Use Types Packs/Day [...] Telephone Encounter - Sophie Avina RN - 03/15/2018 11:28 AM CDT Pt has a call into her Community Relations Officer but they recommended she contact our office. She is having some SOB but when asked, she states it is the same it has always been and she had it in the hospital too. Her weight is stable and her BP is stable, bur her HR has been in the 120s the last few reads.Advised pt that she contact her Community Relations Officer again and let them know her HR is tachycardic. Some of her meds were adjusted at [facility] so her Community Relations Officer might need to titrate her Metoprolol some. Pt verbalized understanding and will F/U with Dr Jorge. in this encounter Plan of Treatment Not on fileas of this encounter Visit Diagnoses Not on filein this encounter
[2018-05-30] MEDS: PHENAZOPYRIDINE 100 MG (PYRIDIUM) TABLET PO SCH ×3 (09:00→21:36)
--- NOTE | 2018-05-30 10:19 | NUR ---
CALLED DR TORRES REGARDING PATIENT'S LACK OF URINE OUTPUT. BLADDER SCAN SHOWS 0 MLS. KEEP FLUIDS RUNNING FOR NOW.
[2018-05-30] MEDS: inSUlin ASPART (NovoLOG) 1 UNIT/0.01 ML (CHARGE PER UNIT) SC SCH ×3 (11:05→21:33)
--- NOTE | 2018-05-30 12:05 | NUR ---
CALLED DR TORRES. PATIENT'S CONDITION IS DECLINING. SHE IS UNRESPONSIVE TO STIMULI. SHE WILL MOAN BUT THAT IS ALL. HER BLOOD PRESSURE AND RESP ARE SLOWLY DECLINING. SHE IS STILL NOT HAVING URINE OUTPUT. SHE STARTED ON 3L NC THIS MORNING AND IS NOW ON 12L HF TO KEEP STATS AT 90. NEW ORDERS RECEIVED. TRANSFER PATIENT TO ICU.
--- NOTE | 2018-05-30 12:12 | NUR ---
pt arrives to icu room 9 via bed from 4th floor. pt is moaning but unresponsive to commands or pain. abg drawn per dr pelletier and sent to lab. stat chest xray shows left sided white out. dr pelletier notified of abg results and chest xray. pt to be intubated anesthesia notified of intubation and art line orders. dr Holt consulted for possible thoracentesis and central line placement. dr vela consulted also. 1315 pt intubated by anesthesia et tube is 8.0 and 23 at top lip. placed on vent settings as follows\ ac rate of 18 vt - 450 peep of 5 o2 to keep spo2 above 92. Dr holt placed central line and right femoral art line post intubation. pt to ct post placement ct confirms placement of tubes. dr vela notified of ct and bnp results at 1622 new orders for abg post vent application (drawn and reported to dr vela) 191 dr vela orders 40 of lasix for decreased urine ouput with cvp of 23.
[2018-05-30] MEDS ORDERED: VANCOMYCIN INJECTION 0.1 MG in NS (IVPB) 250 ML IV SCH (12:15)
[2018-05-30] MEDS ORDERED: PIPERACILLIN SODIUM/TAZOBACTAM 4.5 GM in NS (IVPB) 100 ML IV SCH (12:15)
[2018-05-30 12:29] LABS: ABG BASE EXCESS 8.6 MMOL/L (-2.5-2.5); ABG OXYGEN SATURATION 94 % (94-100); ABG PO2 71 MMHG (79-93); ABG TCO2 40.2 MMOL/L (21.0-31.0)
--- NOTE | 2018-05-30 12:30 | NUR ---
PATIENT TRANSFERRED TO ICU VIA BED. REPORT GIVEN TO THOMPSON DE LA VEGA.
[2018-05-30 12:36] LABS: ALLENS TEST YES-POS; INSPIRED O2 12; PATIENT TEMP 96.8; VENTILATOR NO
[2018-05-30 12:37] LABS: ABG PCO2 100 MMHG (35-45); ABG PH 7.18 (7.37-7.43)
--- NOTE | 2018-05-30 12:39 | NUR ---
CR 2.3; CR CL ~30; WT 113.9 KG; VANCO 1750 MG IV BOLUS THEN 1000 MG IV Q24H; TROUGH AFTER 2ND DOSE
[2018-05-30] MEDS ORDERED: VANCOMYCIN 1,750 MG/NS 500 ML IVPB IV NR ×2 (12:45)
[2018-05-30] MEDS ORDERED: PIPERACILLIN/TAZO 4.5 GM/NS 100 ML IV NR ×2 (12:45)
[2018-05-30 12:53] LABS: BASOPHILS % (AUTO) 0 % (0-10); EOSINOPHILS % (AUTO) 0 % (0-10); HEMATOCRIT 28 % (35-52); HEMOGLOBIN 8.3 G/DL (11.5-16.0); LYMPHOCYTES # (AUTO) 0.6 X 10^3 (1.0-4.0); LYMPHOCYTES % (AUTO) 6 % (12-44); MEAN CORPUSCULAR HEMOGLOBIN 31 PG (25-34); MEAN CORPUSCULAR HGB CONC 30 G/DL (32-36); MEAN CORPUSCULAR VOLUME 103 FL (80-99); MEAN PLATELET VOLUME 10.2 FL (7.4-10.4); MONOCYTES # (AUTO) 0.8 X 10^3 (0.0-1.0); MONOCYTES % (AUTO) 8 % (0-12); NEUTROPHILS # (AUTO) 9.4 X 10^3 (1.8-7.8); NEUTROPHILS % (AUTO) 86 % (42-75); PLATELET COUNT 232 10^3/uL (130-400); RED BLOOD COUNT 2.71 10^6/uL (4.35-5.85); RED CELL DISTRIBUTION WIDTH 15.6 % (10.0-14.5); WHITE BLOOD COUNT 10.9 10^3/uL (4.3-11.0)
--- NOTE | 2018-05-30 12:54 | Diagnostic Imaging Report ---
INDICATION: Unresponsive. Shortness of breath. Comparison with 1:49 a.m. FINDINGS: There is complete opacification of left hemithorax now. There is increasing infiltrate scattered throughout the right lung. No pleural effusion is seen on the right. Median sternotomy changes are present. IMPRESSION: Complete opacification left hemithorax now present with increasing diffuse scattered alveolar and interstitial infiltrate on the right. Dictated by: Dictated on workstation # [id number]
[2018-05-30] MEDS ORDERED: PROPOFOL DRIP (ICU) 100 ML IV ONE (12:56)
[2018-05-30 13:14] LABS: ALBUMIN 3.3 GM/DL (3.2-4.5); BILIRUBIN,TOTAL 0.9 MG/DL (0.1-1.0); CREATININE SERUM 2.56 MG/DL (0.60-1.30); POTASSIUM 4.9 MMOL/L (3.6-5.0); TOTAL PROTEIN 7.3 GM/DL (6.4-8.2)
--- NOTE | 2018-05-30 13:23 | History & Physicial ([facility]) ---
HPI History of Present Illness: 62 yo F that was recently admitted with bacteria that came in via EMS last night after a fall. Patient stated in the ER that she both hit her head and that she did not hit her head. Fall was unwitnessed. Called this AM by nurse stating that patient had no UOP and patient became unresponsive. Rapid Response was called and patient transferred up to ICU. Stat labs and CXR done. AGB shows acidosis with PCO2 100, called Dr Snow and Dr Holt for consult. Patient to be intubated. Central line to be placed. CT head, Chest/Abd/Pelvis ordered. Started on Zosyn/Vanc Source: RN/, old records Exam Limitations: clinical condition Date seen by provider: May 30, 2018 Time Seen by Provider: 12:40 Attending Physician James Torres MD PCP James Torres MD Consult Date of Admission May 30, 2018 at 04:03 Home Medications Home Medications Reviewed patient Home Medication Reconciliation performed by pharmacy medication reconciliations medical records field technician and/or nursing. Patients Allergies have been reviewed. Allergies Coded Allergies: Jfelknv-Tnd-Tif Reductase Inhibitor (Verified Allergy, Intermediate, GI UPSET, N/V, 11/06/17) cefadroxil (Unverified Allergy, Mild, 01/01/17) PDJ-Bfpilu-Okwika Hx Patient Social History Living Status: Lives home with Alcohol Use: Denies Use Recreational Drug Use: No Smoking Status: Former Smoker Type Used: Cigarettes Recent Foreign Travel: No Contact w/other who traveled: No Recent Hopitalizations: No Recent Infectious Disease Expo: No Physical Abuse Screen: No Sexual Abuse: No Immunizations Up To Date Tetanus Booster (TDap): Unknown Date of Pneumonia Vaccine: Jun 23, 2016 Date of Influenza Vaccine: May 18, 2018 Past Medical History PMHx: Paroxysmal Atrial fibrillation Gastric antral vascular ectasia (GAVE) CAD NIDDM Chronic Microcytic anemia, transfusion dependent HTN HLD CHF CKD CT (Nstemi x3) s/p CABG Hypothyroidism Anxiety Disorder Family Medical History Significant Family History: Hypertension, Stroke, Other Conditions/Hx Family History: Arthritis G8 BROTHER Completed stroke 19 MOTHER FH: anemia 19 MOTHER FH: lupus G8 SISTER FH: throat cancer 19 FATHER Hypertension G8 SISTER Myocardial infarction 19 MOTHER Thyroid disease 19 MOTHER G8 SISTER Review of Systems ([facility]) Constitutional: other (Patient intubated and sedated, unable to get ROS) Reviewed Test Results Reviewed Test Results Lab Laboratory Tests Test 05/30/18 02:15 05/30/18 02:26 05/30/18 04:38 05/30/18 05:27 Range/Units White Blood Count 8.4 9.6 4.3-11.0 10^3/uL Red Blood Count 2.72 L 2.71 L 4.35-5.85 10^6/uL Hemoglobin 8.4 L 8.3 L 11.5-16.0 G/DL Hematocrit 27 L 27 L 35-52 % Mean Corpuscular Volume 101 H 101 H 80-99 FL Mean Corpuscular Hemoglobin 31 31 25-34 PG Mean Corpuscular Hemoglobin Concent 31 L 30 L 32-36 G/DL Red Cell Distribution Width 15.4 H 15.1 H 10.0-14.5 % Platelet Count 176 184 130-400 10^3/uL Mean Platelet Volume 9.7 10.4 7.4-10.4 FL Neutrophils (%) (Auto) 83 H 84 H 42-75 % Lymphocytes (%) (Auto) 7 L 7 L 12-44 % Monocytes (%) (Auto) 7 6 0-12 % Eosinophils (%) (Auto) 4 3 0-10 % Basophils (%) (Auto) 0 0 0-10 % Neutrophils # (Auto) 6.9 8.0 H 1.8-7.8 X 10^3 Lymphocytes # (Auto) 0.6 L 0.6 L 1.0-4.0 X 10^3 Monocytes # (Auto) 0.6 0.6 0.0-1.0 X 10^3 Eosinophils # (Auto) 0.3 0.3 0.0-0.3 10^3/uL Basophils # (Auto) 0.0 0.0 0.0-0.1 10^3/uL Prothrombin Time 14.8 H 12.2-14.7 SEC INR Comment 1.2 0.8-1.4 Activated Partial Thromboplast Time 28 24-35 SEC Sodium Level 141 140 135-145 MMOL/L Potassium Level 4.4 4.4 3.6-5.0 MMOL/L Chloride Level 95 L 97 L 98-107 MMOL/L Carbon Dioxide Level 33 H 31 21-32 MMOL/L Anion Gap 13 12 5-14 MMOL/L Blood Urea Nitrogen 42 H 41 H 7-18 MG/DL Creatinine 2.42 H 2.30 H 0.60-1.30 MG/DL Estimat Glomerular Filtration Rate 20 22 BUN/Creatinine Ratio 17 18 Glucose Level 204 H 206 H 70-105 MG/DL Calcium Level 9.5 9.1 8.5-10.1 MG/DL Corrected Calcium 10.1 9.7 8.5-10.1 MG/DL Magnesium Level 2.1 1.8-2.4 MG/DL Total Bilirubin 0.8 0.8 0.1-1.0 MG/DL Aspartate Amino Transf (AST/SGOT) 16 17 5-34 U/L Alanine Aminotransferase (ALT/SGPT) 8 8 0-55 U/L Alkaline Phosphatase 57 59 40-136 U/L Troponin I < 0.30 <0.30 NG/ML Total Protein 7.3 7.1 6.4-8.2 GM/DL Albumin 3.3 3.2 3.2-4.5 GM/DL Urine Color CARLIE H Urine Clarity SLIGHTLY CLOUDY Urine pH 5 5-9 Urine Specific [place] 1.015 L 1.016-1.022 Urine Protein 2+ H NEGATIVE Urine Glucose (UA) NEGATIVE NEGATIVE Urine Ketones NEGATIVE NEGATIVE Urine Nitrite NEGATIVE NEGATIVE Urine Bilirubin 2+ H NEGATIVE Urine Urobilinogen NORMAL NORMAL MG/DL Urine Leukocyte Esterase 1+ H NEGATIVE Urine RBC (Auto) NEGATIVE NEGATIVE Urine RBC NONE /HPF Urine WBC 0-2 /HPF Urine Squamous Epithelial Cells 10-25 H /HPF Urine Crystals NONE /LPF Urine Bacteria TRACE /HPF Urine Casts PRESENT /LPF Urine Hyaline Casts 25-50 H /LPF Urine Mucus LARGE H /LPF Urine Culture Indicated NO Glucometer 230 H 70-110 MG/DL Test 05/30/18 10:53 05/30/18 12:10 05/30/18 12:16 05/30/18 12:22 Range/Units Glucometer 250 H 70-110 MG/DL Troponin I < 0.30 <0.30 NG/ML B-Type Natriuretic Peptide 441.3 H <100.0 PG/ML Triglycerides Level 156 H <150 MG/DL White Blood Count 10.9 4.3-11.0 10^3/uL Red Blood Count 2.71 L 4.35-5.85 10^6/uL Hemoglobin 8.3 L 11.5-16.0 G/DL Hematocrit 28 L 35-52 % Mean Corpuscular Volume 103 H 80-99 FL Mean Corpuscular Hemoglobin 31 25-34 PG Mean Corpuscular Hemoglobin Concent 30 L 32-36 G/DL Red Cell Distribution Width 15.6 H 10.0-14.5 % Platelet Count 232 130-400 10^3/uL Mean Platelet Volume 10.2 7.4-10.4 FL Neutrophils (%) (Auto) 86 H 42-75 % Lymphocytes (%) (Auto) 6 L 12-44 % Monocytes (%) (Auto) 8 0-12 % Eosinophils (%) (Auto) 0 0-10 % Basophils (%) (Auto) 0 0-10 % Neutrophils # (Auto) 9.4 H 1.8-7.8 X 10^3 Lymphocytes # (Auto) 0.6 L 1.0-4.0 X 10^3 Monocytes # (Auto) 0.8 0.0-1.0 X 10^3 Eosinophils # (Auto) 0.0 0.0-0.3 10^3/uL Basophils # (Auto) 0.0 0.0-0.1 10^3/uL Neutrophils % (Manual) 86 % Lymphocytes % (Manual) 2 % Monocytes % (Manual) 5 % Eosinophils % (Manual) 6 % Basophils % (Manual) 1 % Toxic Granulation 1+ Dohle Bodies MODERATE Macrocytosis SLIGHT Sodium Level 141 135-145 MMOL/L Potassium Level 4.9 3.6-5.0 MMOL/L Chloride Level 98 98-107 MMOL/L Carbon Dioxide Level 32 21-32 MMOL/L Anion Gap 11 5-14 MMOL/L Blood Urea Nitrogen 42 H 7-18 MG/DL Creatinine 2.56 H 0.60-1.30 MG/DL Estimat Glomerular Filtration Rate 19 BUN/Creatinine Ratio 16 Glucose Level 252 H 70-105 MG/DL Calcium Level 9.0 8.5-10.1 MG/DL Corrected Calcium 9.6 8.5-10.1 MG/DL Total Bilirubin 0.9 0.1-1.0 MG/DL Aspartate Amino Transf (AST/SGOT) 17 5-34 U/L Alanine Aminotransferase (ALT/SGPT) 9 0-55 U/L Alkaline Phosphatase 55 40-136 U/L Total Protein 7.3 6.4-8.2 GM/DL Albumin 3.3 3.2-4.5 GM/DL Blood Gas Puncture Site L BRACH Blood Gas Patient Temperature 96.8 Arterial Blood pH 7.18 *L 7.37-7.43 Arterial Blood Partial Pressure CO2 100 *H 35-45 MMHG Arterial Blood Partial Pressure O2 71 L 79-93 MMHG Arterial Blood HCO3 37 H 23-27 MMOL/L Arterial Blood Total CO2 40.2 H 21.0-31.0 MMOL/L Arterial Blood Oxygen Saturation 94 94-100 % Arterial Blood Base Excess 8.6 H -2.5-2.5 MMOL/L Osvaldo Test YES-POS Blood Gas Ventilator Setting NO Blood Gas Inspired Oxygen 12 Test 05/30/18 14:30 05/30/18 16:09 05/30/18 16:43 Range/Units Lactic Acid Level 1.29 0.50-2.00 MMOL/L Glucometer 237 H 70-110 MG/DL Blood Gas Puncture Site RF Blood Gas Patient Temperature 97.2 Arterial Blood pH 7.43 7.37-7.43 Arterial Blood Partial Pressure CO2 50 H 35-45 MMHG Arterial Blood Partial Pressure O2 138 H 79-93 MMHG Arterial Blood HCO3 33 H 23-27 MMOL/L Arterial Blood Total CO2 34.8 H 21.0-31.0 MMOL/L Arterial Blood Oxygen Saturation 100 94-100 % Arterial Blood Base Excess 8.5 H -2.5-2.5 MMOL/L Osvaldo Test YES-POS Blood Gas Ventilator Setting YES Blood Gas Inspired Oxygen 70% Physical Exam-([facility]) Physical Exam Vital Signs VS - Last 72 Hours, by Label 05/30/18 05/30/18 05/30/18 05/30/18 00:37 00:37 00:40 04:09 Temp 96.7 96.7 96.7 Pulse 59 59 59 Resp 19 19 19 B/P (MAP) 111/47 (68) 111/47 (68) 92/52 (65) Pulse Ox 92 92 92 92 O2 Delivery Nasal Cannula Nasal Cannula Nasal Cannula Nasal Cannula O2 Flow Rate 3.00 3.00 3.00 05/30/18 05/30/18 05/30/18 05/30/18 04:20 05:13 06:20 07:24 Temp 96.9 97.3 Pulse 58 79 76 Resp 20 20 B/P (MAP) 143/70 (94) 139/61 (87) Pulse Ox 90 90 O2 Delivery Nasal Cannula Nasal Cannula Nasal Cannula O2 Flow Rate 3.00 3.00 3.00 05/30/18 05/30/18 05/30/18 05/30/18 07:31 08:00 10:30 10:30 Temp 97.5 96.8 Pulse 80 77 Resp 20 14 B/P (MAP) 152/65 (94) 130/60 (83) Pulse Ox 91 91 90 86 O2 Delivery Nasal Cannula Nasal Cannula High Flow N/C Nasal Cannula O2 Flow Rate 5.00 5.00 12.00 6.00 05/30/18 05/30/18 05/30/18 05/30/18 10:55 11:55 12:15 12:30 Temp 96.8 Pulse 77 86 75 Resp 14 B/P (MAP) 130/60 (83) 127/72 (90) 138/72 (94) Pulse Ox 90 94 O2 Delivery High Flow N/C High Flow N/C High Flow N/C High Flow N/C O2 Flow Rate 12.00 12.00 12.00 12.00 05/30/18 05/30/18 05/30/18 05/30/18 12:45 13:00 13:09 13:15 Pulse 81 66 71 69 Resp 10 13 14 B/P (MAP) 115/36 (62) 129/83 (98) Pulse Ox 96 92 93 O2 Delivery High Flow N/C High Flow N/C High Flow N/C O2 Flow Rate 12.00 12.00 12.00 05/30/18 05/30/18 05/30/18 05/30/18 13:30 13:45 13:48 14:00 Pulse 66 64 67 73 Resp 17 18 B/P (MAP) 88/63 (71) 100/62 (75) 99/64 (76) Pulse Ox 97 100 100 95 O2 Delivery Mechanical Ventilator Mechanical Ventilator Mechanical Ventilator O2 Flow Rate 85.00 85.00 85.00 FiO2 85 05/30/18 05/30/18 05/30/18 05/30/18 15:00 15:54 16:00 16:11 Pulse 76 68 72 Resp 14 17 22 B/P (MAP) 88/37 (54) 105/41 115/52 (73) 108/43 (64) Pulse Ox 90 99 92 O2 Delivery Mechanical Ventilator Mechanical Ventilator O2 Flow Rate 85.00 70.00 FiO2 70 05/30/18 05/30/18 05/30/18 05/30/18 16:45 17:00 17:30 18:00 Pulse 63 66 58 71 Resp 11 15 11 19 B/P (MAP) 92/41 (58) 101/48 (65) 100/39 (59) 116/46 (69) Pulse Ox 99 92 96 95 O2 Delivery Mechanical Ventilator Mechanical Ventilator Mechanical Ventilator Mechanical Ventilator O2 Flow Rate 70.00 70.00 70.00 70.00 05/30/18 05/30/18 05/30/18 05/30/18 19:00 19:00 19:08 19:45 Temp 97.5 Pulse 76 73 58 73 Resp 17 18 18 B/P (MAP) 114/47 (69) 110/40 (63) Pulse Ox 96 95 93 O2 Delivery Mechanical Ventilator Mechanical Ventilator O2 Flow Rate 70.00 70.00 FiO2 70 05/30/18 20:00 Pulse 61 Resp 14 B/P (MAP) 114/48 (70) Pulse Ox 93 O2 Delivery Mechanical Ventilator O2 Flow Rate 70.00 Capillary Refill : Less Than 3 Seconds General Appearance: obese, other (Intubated and sedated) Neck: non-tender, supple Respiratory: other (diminished breath sounds L>R, basilar crackles on RLL) Cardiovascular: regular rate, rhythm, systolic murmur Gastrointestinal: normal bowel sounds, non tender, soft Extremities: other (2+ pitting edema up to pannus) Neurologic/Psychiatric: other (Intubated and sedated, responds to pain) Skin: pallor Lymphatic: no adenopathy Assessment/Plan Assessment/Plan Admission Status: Inpatient Order (span 2 midnights) Reason for Inpatient Admission: Patient needing ICU stay, intubated (1) Acute respiratory failure with hypoxia Status: Acute Assessment & Plan: - CXR, ABG, Zosyn/Vanc started, stat labs ordered, CT pending, Dr Snow consulted and notified (2) Sepsis Status: Acute Assessment & Plan: See Above Qualifiers: Qualified Codes: A41.9 - Sepsis, unspecified organism (3) Pleural effusion on left Status: Acute Assessment & Plan: - Dr Holt consulted, Bedside US to be done by him (4) Acute on chronic renal failure Status: Acute Assessment & Plan: - IVFs, continue to monitor UOP, adjust meds for GRF Qualifiers: (5) Transfusion-dependent anemia Status: Chronic Assessment & Plan: - At baseline, will continue to monitor (6) Type 2 diabetes mellitus with hyperglycemia Status: Chronic Assessment & Plan: - Q6hr Accucheck, SSI (7) 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 (8) Atrial fibrillation Status: Chronic Assessment & Plan: - No anticoagulation due to severe transfusion dependent anemia (9) Coronary artery disease Status: Chronic Assessment & Plan: s/p CABG approx 6 week ago, cardiology consulted and following (10) Portal hypertension Status: Chronic Assessment & Plan: - Likely 2/2 TANG, no masses or obstruction seen on CT (11) Ascites Status: Chronic Qualifiers: Qualified Codes: R18.8 - Other ascites Clinical Quality Measures DVT/VTE Risk/Contraindication: Risk Factor Score Per Nursin RFS Level Per Nursing on Admit: 3=High Copy Copies To 1: JAMES TORRES MD, HOLLY R MD May 30, 2018 13:23
[2018-05-30] MEDS ORDERED: PHENYLEPHRINE INJ 10 MG/ML (NEO-SYNEPHRINE 1%) ONE (13:29)
--- NOTE | 2018-05-30 13:33 | Consultation-Cardiology ---
HPI-Cardiology Cardiology Consultation: Date of Consultation 05/30/18 Date of Admission Attending Physician James Torres MD Admitting Physician James Torres MD Consulting Physician Wei JORGE MD HPI: Time Seen by a Provider: 13:00 Chief Complaint: fall This is a 62 year old lady that I follow in my office for CAD, post CABG. 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 She follows with Dr. Grace. The patient presented with non-STEMI in January 2018 and angiogram showed severe three-vessel disease with left main involvement. I referred the patient to where she received CABG. The patient also has hyperlipidemia requiring treatment. She is intolerant to statins. She presented recently with sepsis and required antibiotics. She also has had a left-sided pleural effusion since surgery. This time around she presented with history of fall. The patient is currently intubated therefore the history is from reviewing medical records. During the night she became significantly short of breath with ABG showing CO2 narcosis requiring intubation. Review of Systems-Cardiology Review of Systems Constitutional: As described under HPI; No As described under HPI, No no symptoms reported, No chills, No fever, No lightheadedness Eyes: No As described under HPI, No no symptoms reported, No blindness, No blurred vision, No contact lenses, No drainage, No decreased acuity, No foreign body sensation, No pain, No vision change Ears/Nose/Throat: No As described under HPI, No no symptoms reported, No chronic hearing loss, No ear discharge, No ear pain, No nasal drainage, No ulcerations Respiratory: No no symptoms reported; As described under HPI; No As described under HPI, No cough, No orthopnea; shortness of breath; No SOB with excertion Cardiovascular: No no symptoms reported; As described under HPI; No As described under HPI, No chest pain, No edema, No irregular heart rate, No lightheadedness, No palpitations Gastrointestinal: No no symptoms reported, No As described under HPI, No abdomen distended, No abdominal pain, No blood streaked bowels, No constipation , No diarrhea, No nausea, No vomiting, No stool coloration changes Genitourinary: No As described under HPI, No burning, No dysuria, No discharge , No frequency, No flank pain, No hematuria, No urgency : Yes : No Musculoskeletal: As describe under HPI Skin: No rash, No skin related problems, No ulcerations Psychiatric/Neurological: No anxiety, No depression, No seizure, No focal weakness, No syncope Hematologic: No bleeding abnormalities IBQ-Kjotqi-Ndyoro Hx Patient Social History Alcohol Use: Denies Use Recreational Drug Use: No Smoking Status: Former Smoker Type Used: Cigarettes Recent Foreign Travel: No Recent Infectious Disease Expo: No Hospitalization with Isolation: Denies Physical Abuse Screen: No Sexual Abuse: No Immunizations Up To Date Tetanus Booster (TDap): Unknown Date of Pneumonia Vaccine: Jun 23, 2016 Date of Influenza Vaccine: May 18, 2018 Past Medical History PMH As described under Assessment. Family Medical History Family Medical History: Does not report fam h/o early CAD or SCD Family History: Arthritis G8 BROTHER Completed stroke 19 MOTHER FH: anemia 19 MOTHER FH: lupus G8 SISTER FH: throat cancer 19 FATHER Hypertension G8 SISTER Myocardial infarction 19 MOTHER Thyroid disease 19 MOTHER G8 SISTER Allergies and Home Medications Allergies Coded Allergies: Jzhnefl-Vdu-Zee Reductase Inhibitor (Verified Allergy, Intermediate, GI UPSET, N/V, 11/06/17) cefadroxil (Unverified Allergy, Mild, 01/01/17) Home Medications Diltiazem HCl 180 Mg Capsule.er, 180 MG PO DAILY, (Reported) Folic Acid 1 Mg Tablet, 1 MG PO DAILY, (Reported) Furosemide 40 Mg Tablet, 40 MG PO DAILY Prescribed by: JAMES TORRES on 05/25/18 1241 Magnesium Oxide 400 Mg Tablet, 400 MG PO BID, (Reported) Omeprazole 40 Mg Capsule.dr, 40 MG PO BID, (Reported) Ondansetron HCl 8 Mg Tablet, 8 MG PO Q8H PRN for NAUSEA/VOMITING-1ST LINE, ( Reported) Potassium Chloride 20 Meq Tablet.er, 20 MEQ PO DAILY, (Reported) Rosuvastatin Calcium 40 Mg Tablet, 40 MG PO DAILY, (Reported) Torsemide 20 Mg Tablet, 40 MG PO DAILY, (Reported) Patient Home Medication List Home Medication List Reviewed: Yes Physical Exam-Cardiology Physical Exam Vital Signs/I&O 05/31/18 05/31/18 05/31/18 05/31/18 02:00 02:22 03:00 03:34 Temp 97.5 Pulse 98 98 105 91 Resp 14 B/P (MAP) 102/43 (62) 102/43 108/47 (67) Pulse Ox 98 98 98 96 O2 Delivery Mechanical Ventilator Mechanical Ventilator Mechanical Ventilator O2 Flow Rate 50.00 50.00 50.00 FiO2 50 05/31/18 05/31/18 05/31/18 05/31/18 04:00 05:00 06:00 07:02 Temp 98.8 Pulse 100 100 104 107 Resp 14 15 19 B/P (MAP) 111/45 (67) 117/46 (69) 106/43 (64) Pulse Ox 96 97 96 O2 Delivery Mechanical Ventilator Mechanical Ventilator Mechanical Ventilator O2 Flow Rate 50.00 50.00 50.00 05/31/18 05/31/18 05/31/18 05/31/18 07:02 07:04 08:00 08:00 Pulse 106 111 128 Resp 14 18 25 B/P (MAP) 117/48 (71) 115/50 (71) Pulse Ox 95 95 94 93 O2 Delivery Mechanical Ventilator Mechanical Ventilator Mechanical Ventilator O2 Flow Rate 50.00 50.00 FiO2 50 50 05/31/18 05/31/18 05/31/18 05/31/18 09:00 09:30 09:31 10:00 Pulse 129 130 130 Resp 34 24 15 B/P (MAP) 109/47 (67) 107/47 107/45 (65) Pulse Ox 93 100 100 O2 Delivery Mechanical Ventilator Mechanical Ventilator O2 Flow Rate 50.00 50.00 FiO2 50 05/31/18 05/31/18 05/31/18 11:00 11:15 12:00 Pulse 130 131 133 Resp 18 23 22 B/P (MAP) 102/42 (62) 116/46 (69) Pulse Ox 100 100 92 O2 Delivery Mechanical Ventilator Mechanical Ventilator O2 Flow Rate 50.00 50.00 FiO2 50 05/31/18 00:00 Intake Total 1000 ml Output Total 295 ml Balance 705 ml Capillary Refill : Less Than 3 Seconds Constitutional: appears stated age, AAO x 3; No apparent distress; well- developed, well-nourished, other (intubated and ventilated.) HEENT: PERRL; No normal ENT inspection, No TMs normal, No pharynx normal, No scleral icterus (R), No scleral icterus (L), No pale conjunctivae (R), No pale conjunctivae (L), No photophobia, No TM abnormal (R), No TM abnormal (L), No pharyngeal erythema, No tonsillar exudate, No other, No discharge, No EOMI; hearing is well preserved; No hard of hearing; oral hygience is good; No ulceration, No xanthelasmas are seen Neck: No carotid bruit; carotid pulses are 2 + bilaterally Respiratory: chest is bilaterally symmetric, other (no respiratory sounds left lung) Cardiovascular: irregularly irregular, S1 and S2 Gastrointestinal: No tender, No soft, No round, No distended, No pulsatile mass , No organomegaly, No guarding, No rebound, No tenderness, No hernia, No mass, No audible bowel sounds, No abnormal bowel sounds, No abdominal bruits, No spleenomegaly, No other Rectal: deferred Extremities: No normal range of motion, No non-tender, No normal inspection, No pedal edema, No calf tenderness, No normal capillary refill, No pelvis stable , No calf tenderness, No inflammation, No pedal edema, No slow capillary refill , No swelling, No other, No abrasion, No clubbing, No cyanosis, No ecchymosis, No laceration, No no lower extremity edema bilateral, No significant edema, No tenderness, No wound Neurologic/Psychiatric: other (intubated and ventilated.), power is 5/5 both on sides Skin: No normal color, No warm/dry, No cyanosis, No cool, No diaphoresis, No damp, No ecchymosis, No jaundice, No mottled, No pallor, No rash, No tattoos/ piercings, No ulcerations, No rash on exposed areas, No ulcerations on exposed areas, No other Data Review Labs Laboratory Tests 05/30/18 14:30: Lactic Acid Level 1.29 05/30/18 16:09: Glucometer 237H 05/30/18 16:43: Blood Gas Puncture Site RF, Blood Gas Patient Temperature 97.2, Arterial Blood pH 7.43, Arterial Blood Partial Pressure CO2 50H, Arterial Blood Partial Pressure O2 138H, Arterial Blood HCO3 33H, Arterial Blood Total CO2 34.8H, Arterial Blood Oxygen Saturation 100, Arterial Blood Base Excess 8.5H, Osvaldo Test YES-POS, Blood Gas Ventilator Setting YES, Blood Gas Inspired Oxygen 70% 05/30/18 21:23: Glucometer 129H 05/30/18 21:50: Urine Color AMBERH, Urine Clarity SLIGHTLY CLOUDY, Urine pH 5, Urine Specific [place] 1.015L, Urine Protein 2+H, Urine Glucose (UA) NEGATIVE, Urine Ketones NEGATIVE, Urine Nitrite POSITIVEH, Urine Bilirubin 2+H, Urine Urobilinogen 4H, Urine Leukocyte Esterase 3+H, Urine RBC (Auto) 5+H, Urine RBC 10-25H, Urine WBC 50-100H, Urine Squamous Epithelial Cells 10-25H, Urine Crystals NONE, Urine Bacteria MODERATEH, Urine Casts NONE, Urine Mucus MODERATEH, Urine Culture Indicated YES 05/31/18 03:15: White Blood Count 5.2, Red Blood Count 2.46L, Hemoglobin 7.5L, Hematocrit 25L, Mean Corpuscular Volume 100H, Mean Corpuscular Hemoglobin 31, Mean Corpuscular Hemoglobin Concent 31L, Red Cell Distribution Width 15.4H, Platelet Count 132, Mean Platelet Volume 9.9, Neutrophils (%) (Auto) 74, Lymphocytes (%) (Auto) 12, Monocytes (%) (Auto) 10, Eosinophils (%) (Auto) 3, Basophils (%) (Auto) 0, Neutrophils # (Auto) 3.9, Lymphocytes # (Auto) 0.7L, Monocytes # (Auto) 0.5, Eosinophils # (Auto) 0.2, Basophils # (Auto) 0.0, Sodium Level 143, Potassium Level 3.9, Chloride Level 101, Carbon Dioxide Level 29, Anion Gap 13, Blood Urea Nitrogen 44H, Creatinine 2.33H, Estimat Glomerular Filtration Rate 21, BUN/ Creatinine Ratio 19, Glucose Level 86, Calcium Level 9.1, Phosphorus Level 2.7, Magnesium Level 1.9 05/31/18 03:57: Blood Gas Puncture Site RT FEMORAL, Blood Gas Patient Temperature 98.8, Arterial Blood pH 7.51H, Arterial Blood Partial Pressure CO2 42, Arterial Blood Partial Pressure O2 75L, Arterial Blood HCO3 34H, Arterial Blood Total CO2 34.8H , Arterial Blood Oxygen Saturation 97, Arterial Blood Base Excess 9.8H, Osvaldo Test ART LINE, Blood Gas Ventilator Setting YES, Blood Gas Inspired Oxygen 50% 05/31/18 06:39: 05/31/18 08:09: Blood Gas Puncture Site RT GROIN, Blood Gas Patient Temperature 99.0, Arterial Blood pH 7.45H, Arterial Blood Partial Pressure CO2 48H, Arterial Blood Partial Pressure O2 72L, Arterial Blood HCO3 33H, Arterial Blood Total CO2 34.2H, Arterial Blood Oxygen Saturation 96, Arterial Blood Base Excess 8.6H, Osvaldo Test NA, Blood Gas Ventilator Setting YES, Blood Gas Inspired Oxygen 50% 05/31/18 08:47: Troponin I < 0.30, B-Type Natriuretic Peptide 278.7H 05/31/18 11:36: Glucometer 112H 05/31/18 12:15: White Blood Count 7.2, Red Blood Count 2.45L, Hemoglobin 7.5L, Hematocrit 25L, Mean Corpuscular Volume 100H, Mean Corpuscular Hemoglobin 31, Mean Corpuscular Hemoglobin Concent 31L, Red Cell Distribution Width 15.9H, Platelet Count 153, Mean Platelet Volume 10.4, Neutrophils (%) (Auto) 73, Lymphocytes (%) (Auto) 14 , Monocytes (%) (Auto) 12, Eosinophils (%) (Auto) 1, Basophils (%) (Auto) 0, Neutrophils # (Auto) 5.2, Lymphocytes # (Auto) 1.0, Monocytes # (Auto) 0.9, Eosinophils # (Auto) 0.1, Basophils # (Auto) 0.0, Sodium Level 143, Potassium Level 3.5L, Chloride Level 102, Carbon Dioxide Level 26, Anion Gap 15H, Blood Urea Nitrogen 44H, Creatinine 2.33H, Estimat Glomerular Filtration Rate 21, BUN/ Creatinine Ratio 19, Glucose Level 131H, Calcium Level 8.9, Corrected Calcium 9.9, Total Bilirubin 0.6, Aspartate Amino Transf (AST/SGOT) 23, Alanine Aminotransferase (ALT/SGPT) 9, Alkaline Phosphatase 55, Total Protein 6.2L, Albumin 2.8L Microbiology ECG Impression ECG Initial ECG Impression: Atrial Fibrillation A/P-Cardiology Assessment/Admission Diagnosis Status post fall, CO2 narcosis, severe respiratory distress, requiring intubation/ventilation, CAD, CABG, Hyperlipidemia, Acute on chronic diastolic congestive heart failure, Acute on chronic kidney injury, Chronic anemia due to gastric ectasia, Chronic atrial fibrillation, Left-sided pleural effusion. Plan Status post fall, unclear etiology. CO2 narcosis, severe respiratory distress, requiring intubation/ventilation, Dr. Snow following. CAD, CABG, continue outpatient medications. Acute coronary syndrome has been ruled out with negative serial troponin. Atrial fibrillation, currently well controlled. Hyperlipidemia, rosuvastatin when she is able to tolerate by mouth. Acute on chronic diastolic congestive heart failure, mildly elevated BNP. We will request an echocardiogram. 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 Large left-sided pleural effusion, I reviewed all radiological data including chest x-rays and CT scan with Dr. Snow. Likely infiltrate left lower lobe as well as large pleural effusion. Dr. Holt on board. Critically ill patient, over 30 minutes spent taking care of the patient and reviewing all the information and making a cardiac plan. Thank you for your consultation. Please call me if you have any questions. Estela Jorge MD, FACP, FACC, FSCAI, FHRS, CCDS Interventional Cardiology Cardiac Electrophysiology Vascular Medicine and Endovascular Interventions Clinical Quality Measures DVT/VTE Risk/Contraindication: Risk Factor Score Per Nursin RFS Level Per Nursing on Admit: 3=High Wei JORGE MD May 30, 2018 1:33 pm
[2018-05-30 13:34] LABS: NEUTROPHILS % (MANUAL) 86 %
[2018-05-30 13:35] LABS: BASOPHILS % (MANUAL) 1 %; EOSINOPHILS % (MANUAL) 6 %; LYMPHOCYTES % (MANUAL) 2 %; MONOCYTES % (MANUAL) 5 %
[2018-05-30 13:37] LABS: TOXIC GRANULATION/VACUOLAZATIO 1+
--- NOTE | 2018-05-30 13:58 | Pulmonary Consultation ---
History of Present Illness History of Present Illness Date of Consultation 05/30/18 13:53 Time Seen by Provider: 13:53 Date of Admission History of Present Illness 62yo with hx of morbid obesity and chronic anemia and was recently admitted presented to ED last night via EMS s/p unwitnessed fall. pt was admitted to 4th floor. While on the 4th floor pt became anuric and unresponsive. Rapid Response team was called and pt was transferred to ICU. ABG shows acute respiratory failure with C02 of 100 and pt was intubated per anesthesia. Pt has been started on Zosyn and Vancomycin. Allergies and Home Medications Allergies Coded Allergies: Ybsfelf-Cgj-Kwn Reductase Inhibitor (Verified Allergy, Intermediate, GI UPSET, N/V, 11/06/17) cefadroxil (Unverified Allergy, Mild, 01/01/17) Sulfa (Sulfonamide Antibiotics) (Verified Allergy, Unknown, 06/18/18) Home Medications Acetaminophen 325 Mg Tablet, 650 MG PO Q6H PRN for PAIN-MILD, (Reported) Aspirin 81 Mg Tablet.dr, 81 MG PO DAILY, (Reported) Cetirizine HCl 10 Mg Tablet, 10 MG PO DAILY, (Reported) Diltiazem HCl 180 Mg Capsule.er, 180 MG PO DAILY, (Reported) Diphenhydramine HCl 25 Mg Capsule, 25 MG PO Q6H PRN for ALLERGIES, (Reported) Folic Acid 1 Mg Tablet, 1 MG PO DAILY, (Reported) Furosemide 40 Mg Tablet, 40 MG PO DAILY, (Reported) Insulin Aspart 300 Units/3 Ml Solution, 4 UNITS SQ TIDAC, (Reported) Insulin NPH Human Isophane 100 Unit/1 Ml Vial, 14 UNIT SQ DAILY, (Reported) Levothyroxine Sodium 175 Mcg Tablet, 175 MCG PO DAILY, (Reported) Metoprolol Tartrate 100 Mg Tablet, 100 MG PO BID, (Reported) Nitroglycerin 0.4 Mg Tab.subl, 0.4 MG SL UD PRN for CHEST PAIN, (Reported) Omeprazole 40 Mg Capsule.dr, 40 MG PO BID, (Reported) Ondansetron HCl 8 Mg Tablet, 8 MG PO Q8H PRN for NAUSEA/VOMITING-1ST LINE, ( Reported) Potassium Chloride 20 Meq Tablet.er, 20 MEQ PO DAILY, (Reported) Sennosides/Docusate Sodium 1 Each Tablet, 1 TAB PO HS, (Reported) Tizanidine HCl 4 Mg Tablet, 4 MG PO TID PRN for MUSCLE SPASMS, (Reported) Tramadol HCl 50 Mg Tablet, 50 MG PO TID PRN for PAIN-MODERATE, (Reported) Past Yvlvtht-Jzstbf-Tcqbue Hx Patient Social History Alcohol Use: Denies Use Recreational Drug Use: No Smoking Status: Former Smoker Type Used: Cigarettes Former Smoker, Quit: May 20, 1980 Recent Foreign Travel: No Contact w/Someone Who Travel: No Recent Infectious Disease Expo: No Recent Hopitalizations: No Physical Abuse: No Sexual Abuse: No Mistreated: No Fear: No Immunizations Up To Date Tetanus Booster (TDap): Unknown PED Vaccines UTD: Yes Date of Pneumonia Vaccine: Jun 23, 2016 Date of Influenza Vaccine: May 18, 2018 Seasonal Allergies Seasonal Allergies: Yes Past Medical History Surgeries: Yes Adenoidectomy, Cardiac, CABG, Coronary Stent, Open Heart Surgery, Orthopedic, Tonsillectomy, Tubal Ligation Respiratory: Yes (LEFT PLEURAL EFFUSION) Sleep Apnea Currently Using CPAP: No Currently Using BIPAP: No Cardiac: Yes (CHF, STENT X1; CABG 05/2018; ) Atrial Fibrillation, Chronic Edema/Swelling, Coronary Artery Disease, Heart Attack, High Cholesterol, Hypertension Neurological: No Reproductive Disorders: No Female Reproductive Disorders: Denies 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 Sexually Transmitted Disease: No HIV/AIDS: No Genitourinary: Yes Renal Failure Gastrointestinal: Yes Gastroesophageal Reflux, Gastrointestinal Bleed, Diverticulosis, Polyps Musculoskeletal: Yes (POOR AMBULATION--USES WALKER) Degenerate Disk Disease, Arthritis, Chronic Back Pain Endocrine: Yes (OBESITY) Diabetes, Insulin dep HEENT: No Loss of Vision: Denies Hearing Impairment: Denies Cancer: No Psychosocial: No Integumentary: Yes Psoriasis Blood Disorders: Yes Adverse Reaction/Blood Tranf: Yes (Antibody JKA) Family Medical History Arthritis G8 BROTHER Completed stroke 19 MOTHER FH: anemia 19 MOTHER FH: lupus G8 SISTER FH: throat cancer 19 FATHER Hypertension G8 SISTER Myocardial infarction 19 MOTHER Thyroid disease 19 MOTHER G8 SISTER Hypertension, Stroke, Other Conditions/Hx Review of Systems Time Seen by Provider: 07:41 Sepsis Event Evaluation Height, Weight, BMI Height: 5'4.00" Weight: 251lbs. 4.0oz. 113.103858sy; 43.1 BMI Method:Stated Exam Exam Vital Signs Date Time Temp Pulse Resp B/P (MAP) Pulse Ox O2 Delivery O2 Flow Rate FiO2 05/30/18 13:09 71 05/30/18 12:45 81 10 115/36 (62) 96 High Flow N/C 12.00 05/30/18 12:30 75 138/72 (94) 94 High Flow N/C 12.00 05/30/18 12:15 86 127/72 (90) High Flow N/C 12.00 05/30/18 11:55 96.8 77 14 130/60 (83) 90 High Flow N/C 12.00 05/30/18 10:55 High Flow N/C 12.00 05/30/18 10:30 86 Nasal Cannula 6.00 05/30/18 10:30 96.8 77 14 130/60 (83) 90 High Flow N/C 12.00 05/30/18 08:00 91 Nasal Cannula 5.00 05/30/18 07:31 97.5 80 20 152/65 (94) 91 Nasal Cannula 5.00 05/30/18 07:24 76 05/30/18 06:20 97.3 79 20 139/61 (87) 90 Nasal Cannula 3.00 05/30/18 05:13 Nasal Cannula 3.00 05/30/18 04:20 96.9 58 20 143/70 (94) 90 Nasal Cannula 3.00 05/30/18 04:09 96.7 59 19 92/52 (65) 92 Nasal Cannula 3.00 05/30/18 00:40 92 Nasal Cannula 3.00 05/30/18 00:37 96.7 59 19 111/47 (68) 92 Nasal Cannula 3.00 05/30/18 00:37 96.7 59 19 111/47 (68) 92 Nasal Cannula I & O 05/30/18 07:00 Intake Total 1000 ml Output Total 25 ml Balance 975 ml Height & Weight Height: 5'4.00" Weight: 251lbs. 4.0oz. 113.685338gt; 43.1 BMI Method:Stated General Appearance: WD/WN, Mild Distress HEENT: PERRL/EOMI, Normal ENT Inspection, Pharynx Normal Neck: Full Range of Motion, Normal Inspection, Non Tender Respiratory: Decreased Breath Sounds Capillary Refill: Less Than 3 Seconds Gastrointestinal: normal bowel sounds, non tender, soft Skin: Normal Color Lymphatic: No Adenopathy Results Lab Laboratory Tests 05/30/18 02:15 05/30/18 04:38 05/30/18 12:16 Assessment/Plan Assessment/Plan Acute respiratory failure -Continue ventilator -Check ABG 30min after intubation Left lung opacification secondary to atelectasis and effusion -Check CT of chest -I used bedside US to look at chest there does not appear to be much effusion on US -Will plan on bronchoscopy tomorrow morning Acute on chronic renal failure -Monitor Chronic back pain Unresponsive -Repeat CT of head r/o bleed -Probably secondary to c02 narcosis -Pt received at least 2mg of ativan last night Morbid obesity with probable VICKI BRISEIDA IBRAHIM DO May 30, 2018 13:58
--- NOTE | 2018-05-30 14:32 | Progress Note-Standard ---
Standard Progress Note Progress Notes/Assess & Plan Date Seen by a Provider: May 30, 2018 Time Seen by a Provider: 13:15 Progress/Assessment & Plan consult for intubation/ art line. asa 4 general anesthesia iv induction with 200 mg propofol and 80 mg succinylcholine. and 12.5 mg ephedrine. intubated x1 attempt. bbs equal. art line failed with ultrasound, and doppler. dr fleming at bedside to attempt femoral line. start time 1315. end time 1345 HAYDEN FERNÁNDEZ CRNA May 30, 2018 14:32
[2018-05-30] MEDS ORDERED: fentaNYL INJECTION 100 MCG/2 ML AMP ONE (15:05)
[2018-05-30] MEDS ORDERED: SUCCINYLCHOLINE INJ 100 MG/5 ML SYR INJ ONE (15:08)
[2018-05-30] MEDS ORDERED: fentaNYL INJECTION 100 MCG/2 ML AMP IVP PRN (15:15)
[2018-05-30] MEDS ORDERED: inSUlin ASPART (NovoLOG) 1 UNIT/0.01 ML (CHARGE PER UNIT) SQ PRN (15:30)
[2018-05-30] MEDS ORDERED: DEXMEDETOMIDINE INJECTION 1,000 MCG in NS (IVPB) 250 ML IV PRN (15:30)
[2018-05-30] MEDS ORDERED: SODIUM CHLORIDE FLUSH 10 ML IV PRN (15:30)
[2018-05-30] MEDS ORDERED: HALOPERIDOL 5 MG/ML (HALDOL) AMP IV PRN (15:30)
[2018-05-30] MEDS ORDERED: PROPOFOL DRIP (ICU) 100 ML IV SCH (15:30)
--- NOTE | 2018-05-30 15:40 | Consultation ---
History of Present Illness History of Present Illness Patient Consulted On(ken/time) 05/30/18 13:05 Date Seen by Provider: May 30, 2018 Time Seen by Provider: 13:05 History of Present Illness Consult requested by Dr. Wilson for central line, effusion, respiratory distress Patient is a 62 year old female known to me. She having respiratory issues requiring intubation. Patient intubated by anesthesia. She has had a right pleural effusion/infiltrate left side that has required patient to have thoracentesis previously. Patient needing central line and arterial line. Asked to come evaluated the patient and place central and arterial line. Patient unable to provide any information due to being intubated. Allergies and Home Medications Allergies Coded Allergies: Efomozk-Wbg-Opl Reductase Inhibitor (Verified Allergy, Intermediate, GI UPSET, N/V, 11/06/17) cefadroxil (Unverified Allergy, Mild, 01/01/17) Home Medications Aspirin 81 Mg Tablet.dr, 81 MG PO DAILY, (Reported) Cetirizine HCl 10 Mg Tablet, 10 MG PO DAILY, (Reported) Diltiazem HCl 180 Mg Capsule.er, 180 MG PO DAILY, (Reported) Diphenhydramine HCl 25 Mg Capsule, 25 MG PO Q6H PRN for ALLERGIES, (Reported) Folic Acid 1 Mg Tablet, 1 MG PO DAILY, (Reported) Furosemide 40 Mg Tablet, 40 MG PO DAILY Prescribed by: JAMES WILSON on 05/25/18 1241 Insulin Aspart 300 Units/3 Ml Solution, 4 UNITS SQ TIDAC, (Reported) Insulin NPH Human Isophane 100 Unit/1 Ml Vial, 14 UNIT SQ DAILY, (Reported) Levothyroxine Sodium 175 Mcg Tablet, 175 MCG PO DAILY, (Reported) Metoprolol Tartrate 100 Mg Tablet, 100 MG PO BID, (Reported) Nitroglycerin 0.4 Mg Tab.subl, 0.4 MG PO UD PRN for CHEST PAIN, (Reported) Omeprazole 40 Mg Capsule.dr, 40 MG PO BID, (Reported) Ondansetron HCl 8 Mg Tablet, 8 MG PO Q8H PRN for NAUSEA/VOMITING-1ST LINE, ( Reported) Potassium Chloride 20 Meq Tablet.er, 20 MEQ PO DAILY, (Reported) Sennosides/Docusate Sodium 1 Each Tablet, 1 TAB PO HS, (Reported) Tizanidine HCl 4 Mg Tablet, 4 MG PO TID PRN for MUSCLE SPASMS, (Reported) Tramadol HCl 50 Mg Tablet, 50 MG PO TID PRN for PAIN-MODERATE, (Reported) Patient Home Medication List Home Medication List Reviewed: Yes Past Xwxlgjy-Dzkzhb-Pykewu Hx Patient Social History Alcohol Use: Denies Use Recreational Drug Use: No Smoking Status: Former Smoker Former Smoker, Quit: May 20, 1980 Type Used: Cigarettes Recent Foreign Travel: No Contact w/Someone Who Travel: No Recent Infectious Disease Expo: No Recent Hopitalizations: No Physical Abuse Screen: No Sexual Abuse: No Immunizations Up To Date Tetanus Booster (TDap): Unknown PED Vaccines UTD: Yes Date of Pneumonia Vaccine: Jun 23, 2016 Date of Influenza Vaccine: May 18, 2018 Seasonal Allergies Seasonal Allergies: Yes Surgeries History of Surgeries: Yes Surgeries: Adenoidectomy, Cardiac, CABG, Coronary Stent, Open Heart Surgery, Orthopedic, Tonsillectomy, Tubal Ligation Respiratory History of Respiratory Disorde: Yes (LEFT PLEURAL EFFUSION) Respiratory Disorders: Sleep Apnea Cardiovascular History of Cardiac Disorders: Yes (CHF, STENT X1; CABG 05/2018; ) Cardiac Disorders: Atrial Fibrillation, Chronic Edema/Swelling, Coronary Artery Disease, Heart Attack, High Cholesterol, Hypertension Neurological History of Neurological Disord: No Reproductive System Hx Reproductive Disorders: No Sexually Transmitted Disease: No HIV/AIDS: No Female Reproductive Disorders: Denies PRODUCTION LEAD History: Menopausal Genitourinary History of Genitourinary Disor: Yes Genitourinary Disorders: Renal Failure Gastrointestinal History of Gastrointestinal Di: Yes Gastrointestinal Disorders: Gastroesophageal Reflux, Gastrointestinal Bleed, Diverticulosis, Polyps Musculoskeletal History of Musculoskeletal Dis: Yes (POOR AMBULATION--USES WALKER) Musculoskeletal Disorders: Degenerate Disk Disease, Arthritis, Chronic Back Pain Endocrine History of Endocrine Disorders: Yes (OBESITY) Endocrine Disorders: Diabetes, Insulin dep HEENT History of HEENT Disorders: No Loss of Vision: Denies Hearing Impairment: Denies Cancer History of Cancer: No Psychosocial History of Psychiatric Problem: No Integumentary History of Skin or Integumenta: Yes Skin/Integumentary Disorders: Psoriasis Blood Transfusions History of Blood Disorders: Yes Adverse Reaction to a Blood Tr: Yes (Antibody JKA) Family Medical History Significant Family History: Hypertension, Stroke, Other Conditions/Hx Family Medial History: Arthritis G8 BROTHER Completed stroke 19 MOTHER FH: anemia 19 MOTHER FH: lupus G8 SISTER FH: throat cancer 19 FATHER Hypertension G8 SISTER Myocardial infarction 19 MOTHER Thyroid disease 19 MOTHER G8 SISTER Review of Systems-General ROS-Unable to Obtain: patient intubated. Physical Exam-General Problems Physical Exam Vital Signs Vital Signs - First Documented 05/30/18 05/30/18 00:37 13:48 Temp 96.7 Pulse 59 Resp 19 B/P (MAP) 111/47 (68) Pulse Ox 92 O2 Delivery Nasal Cannula O2 Flow Rate 3.00 FiO2 85 Capillary Refill : Less Than 3 Seconds General Appearance: no apparent distress (intubated and sedated.) HEENT: PERRL/EOMI Neck: supple Respiratory: no respiratory distress, no accessory muscle use Cardiovascular: regular rate, rhythm Gastrointestinal: non tender, soft Rectal: deferred Back: normal inspection Extremities: normal inspection, swelling Neurologic/Psychiatric: No alert (intubated/sedated) Skin: warm/dry Lymphatic: no adenopathy Data Review Labs Laboratory Tests 05/30/18 02:15: White Blood Count 8.4, Red Blood Count 2.72L, Hemoglobin 8.4L, Hematocrit 27L, Mean Corpuscular Volume 101H, Mean Corpuscular Hemoglobin 31, Mean Corpuscular Hemoglobin Concent 31L, Red Cell Distribution Width 15.4H, Platelet Count 176, Mean Platelet Volume 9.7, Neutrophils (%) (Auto) 83H, Lymphocytes (%) (Auto) 7L , Monocytes (%) (Auto) 7, Eosinophils (%) (Auto) 4, Basophils (%) (Auto) 0, Neutrophils # (Auto) 6.9, Lymphocytes # (Auto) 0.6L, Monocytes # (Auto) 0.6, Eosinophils # (Auto) 0.3, Basophils # (Auto) 0.0, Prothrombin Time 14.8H, INR Comment 1.2, Activated Partial Thromboplast Time 28, Sodium Level 141, Potassium Level 4.4, Chloride Level 95L, Carbon Dioxide Level 33H, Anion Gap 13 , Blood Urea Nitrogen 42H, Creatinine 2.42H, Estimat Glomerular Filtration Rate 20, BUN/Creatinine Ratio 17, Glucose Level 204H, Calcium Level 9.5, Corrected Calcium 10.1, Magnesium Level 2.1, Total Bilirubin 0.8, Aspartate Amino Transf ( AST/SGOT) 16, Alanine Aminotransferase (ALT/SGPT) 8, Alkaline Phosphatase 57, Troponin I < 0.30, Total Protein 7.3, Albumin 3.3 05/30/18 02:26: Urine Color AMBERH, Urine Clarity SLIGHTLY CLOUDY, Urine pH 5, Urine Specific Mentcle 1.015L, Urine Protein 2+H, Urine Glucose (UA) NEGATIVE, Urine Ketones NEGATIVE, Urine Nitrite NEGATIVE, Urine Bilirubin 2+H, Urine Urobilinogen NORMAL , Urine Leukocyte Esterase 1+H, Urine RBC (Auto) NEGATIVE, Urine RBC NONE, Urine WBC 0-2, Urine Squamous Epithelial Cells 10-25H, Urine Crystals NONE, Urine Bacteria TRACE, Urine Casts PRESENT, Urine Hyaline Casts 25-50H, Urine Mucus LARGEH, Urine Culture Indicated NO 05/30/18 04:38: White Blood Count 9.6, Red Blood Count 2.71L, Hemoglobin 8.3L, Hematocrit 27L, Mean Corpuscular Volume 101H, Mean Corpuscular Hemoglobin 31, Mean Corpuscular Hemoglobin Concent 30L, Red Cell Distribution Width 15.1H, Platelet Count 184, Mean Platelet Volume 10.4, Neutrophils (%) (Auto) 84H, Lymphocytes (%) (Auto) 7L , Monocytes (%) (Auto) 6, Eosinophils (%) (Auto) 3, Basophils (%) (Auto) 0, Neutrophils # (Auto) 8.0H, Lymphocytes # (Auto) 0.6L, Monocytes # (Auto) 0.6, Eosinophils # (Auto) 0.3, Basophils # (Auto) 0.0, Sodium Level 140, Potassium Level 4.4, Chloride Level 97L, Carbon Dioxide Level 31, Anion Gap 12, Blood Urea Nitrogen 41H, Creatinine 2.30H, Estimat Glomerular Filtration Rate 22, BUN/ Creatinine Ratio 18, Glucose Level 206H, Calcium Level 9.1, Corrected Calcium 9.7, Total Bilirubin 0.8, Aspartate Amino Transf (AST/SGOT) 17, Alanine Aminotransferase (ALT/SGPT) 8, Alkaline Phosphatase 59, Total Protein 7.1, Albumin 3.2 05/30/18 05:27: Glucometer 230H 05/30/18 10:53: Glucometer 250H 05/30/18 12:10: Troponin I < 0.30, B-Type Natriuretic Peptide 441.3H 05/30/18 12:16: White Blood Count 10.9, Red Blood Count 2.71L, Hemoglobin 8.3L, Hematocrit 28L, Mean Corpuscular Volume 103H, Mean Corpuscular Hemoglobin 31, Mean Corpuscular Hemoglobin Concent 30L, Red Cell Distribution Width 15.6H, Platelet Count 232, Mean Platelet Volume 10.2, Neutrophils (%) (Auto) 86H, Lymphocytes (%) (Auto) 6L , Monocytes (%) (Auto) 8, Eosinophils (%) (Auto) 0, Basophils (%) (Auto) 0, Neutrophils # (Auto) 9.4H, Lymphocytes # (Auto) 0.6L, Monocytes # (Auto) 0.8, Eosinophils # (Auto) 0.0, Basophils # (Auto) 0.0, Neutrophils % (Manual) 86, Lymphocytes % (Manual) 2, Monocytes % (Manual) 5, Eosinophils % (Manual) 6, Basophils % (Manual) 1, Toxic Granulation 1+, Dohle Bodies MODERATE, Macrocytosis SLIGHT, Sodium Level 141, Potassium Level 4.9, Chloride Level 98, Carbon Dioxide Level 32, Anion Gap 11, Blood Urea Nitrogen 42H, Creatinine 2.56H , Estimat Glomerular Filtration Rate 19, BUN/Creatinine Ratio 16, Glucose Level 252H, Calcium Level 9.0, Corrected Calcium 9.6, Total Bilirubin 0.9, Aspartate Amino Transf (AST/SGOT) 17, Alanine Aminotransferase (ALT/SGPT) 9, Alkaline Phosphatase 55, Total Protein 7.3, Albumin 3.3 05/30/18 12:22: Blood Gas Puncture Site L BRACH, Blood Gas Patient Temperature 96.8, Arterial Blood pH 7.18*L, Arterial Blood Partial Pressure CO2 100*H, Arterial Blood Partial Pressure O2 71L, Arterial Blood HCO3 37H, Arterial Blood Total CO2 40.2H , Arterial Blood Oxygen Saturation 94, Arterial Blood Base Excess 8.6H, Osvaldo Test YES-POS, Blood Gas Ventilator Setting NO, Blood Gas Inspired Oxygen 12 05/30/18 14:30: Lactic Acid Level 1.29 Assessment/Plan Assessment/Plan Assessment/Plan respiratory distress requiring intubation need for central venous access and arterial line placement. pleural effusion/infiltrate left chest plan u/s guided right IJ central line and right femoral arterial line u/s guided. Dr. Snow at bedside and felt not enough effusion for thoracentesis at this time. patient to go to CT for chest /abd/pelv will follow. Clinical Quality Measures DVT/VTE Risk/Contraindication: Risk Factor Score Per Nursin RFS Level Per Nursing on Admit: 3=High SABRINA ROSSI DO May 30, 2018 15:40
--- NOTE | 2018-05-30 15:41 | Diagnostic Imaging Report ---
Procedure: CT head without contrast. Technique: Multiple contiguous axial images were obtained through the brain without the use of intravenous contrast. Indication: Altered mental status, unresponsive. Comparison: Earlier the same day. Discussion: No significant interval change. No intracranial hemorrhage, mass, midline shift, or hydrocephalus. The ventricles and sulci are normal size and configuration for age. The visualized orbits, paranasal sinuses, mastoid air cells, and calvarium are unremarkable. Impression: Stable negative head CT. Dictated by: Dictated on workstation # [id number]
--- NOTE | 2018-05-30 15:44 | Diagnostic Imaging Report ---
INDICATION: ET tube placement. EXAMINATION: Single view of the chest was obtained. FINDINGS: Since the previous exam, ET tube has been placed. It overlies the tracheal shadow in good position. NG tube is present extending into the stomach. Right jugular line is present tip overlying the right cavoatrial junction. There is moderate pleural effusion on the left. There is cardiomegaly. There is pulmonary venous congestion. IMPRESSION: 1. Satisfactory tube and line position, as described. 2. Findings consistent with congestive failure with moderate left effusion. Dictated by: Dictated on workstation # [id number]
--- NOTE | 2018-05-30 15:44 | Diagnostic Imaging Report ---
PROCEDURE: CT chest, abdomen, and pelvis without contrast. TECHNIQUE: Multiple contiguous axial images were obtained through the chest, abdomen and pelvis without the use of intravenous contrast. INDICATION: Unresponsive. Renal failure. Respiratory distress. FINDINGS: CT CHEST: There is consolidated pneumonia and atelectasis involving the majority of the left lung with moderate pleural effusion. The right lung shows a small pleural effusion with right basilar atelectasis. Right upper lung is clear. There is cardiomegaly. Median sternotomy changes are present. No mediastinal or hilar adenopathy of pathologic size. No bony lesions. ET tube appears in good position. NG tube is present in the stomach. IMPRESSION: Findings consistent with consolidated pneumonia in the left lung with bibasilar atelectasis. Moderate left basilar pleural effusion. CT ABDOMEN/PELVIS: There is moderate amount of ascites with diffuse subcutaneous edema. NG tube is in the stomach which is decompressed. Small bowel is not distended. The colon shows normal stool and gas pattern to the rectum. Munoz catheter is present with decompression of bladder. There are no pelvic masses. The liver shows no evidence of mass. There is mild splenomegaly. Probable portal hypertension. Adrenal glands are not enlarged. Kidneys show no evidence of obstruction with normal-appearing size and shape. Aorta is atherosclerotic without evidence of aneurysm. No bony lesions are demonstrated. IMPRESSION: 1. Moderate ascites. 2. Hepatosplenomegaly with findings consistent with portal hypertension. 3. No evidence of bowel obstruction or constipation. 4. Kidneys show no evidence of hydronephrosis. Dictated by: Dictated on workstation # [id number]
[2018-05-30] MEDS: PROPOFOL DRIP (ICU) 100 ML IV SCH (15:54)
[2018-05-30] MEDS ORDERED: DEXMEDETOMIDINE INJECTION 200 MCG in NS (IVPB) 50 ML IV PRN (16:15)
[2018-05-30 16:50] LABS: ABG BASE EXCESS 8.5 MMOL/L (-2.5-2.5); ABG OXYGEN SATURATION 100 % (94-100); ABG PCO2 50 MMHG (35-45); ABG PH 7.43 (7.37-7.43); ABG PO2 138 MMHG (79-93); ABG TCO2 34.8 MMOL/L (21.0-31.0); ALLENS TEST YES-POS
[2018-05-30 16:51] LABS: INSPIRED O2 70%; PATIENT TEMP 97.2; VENTILATOR YES
--- NOTE | 2018-05-30 17:30 | NUR ---
signed consent for broch in am.
[2018-05-30] MEDS: fentaNYL INJECTION 1,250 MCG in NORMAL SALINE 250 ML INJ PRN (17:43)
[2018-05-30] MEDS ORDERED: FUROSEMIDE 40 MG/4 ML INJ (LASIX) IVP ONE (19:45)
[2018-05-30] MEDS: PIPERACILLIN/TAZO 4.5 GM/NS 100 ML IV SCH ×2 (21:34)
[2018-05-30 22:11] LABS: BILIRUBIN,URINE 2+ (NEGATIVE); CLARITY,URINE SLIGHTLY CLOUDY; COLOR,URINE AMBER; GLUCOSE, URINE (UA) NEGATIVE (NEGATIVE); KETONES,URINE NEGATIVE (NEGATIVE); LEUKOCYTE ESTERASE ,URINE 3+ (NEGATIVE); NITRITE,URINE POSITIVE (NEGATIVE); PH,URINE 5 (5-9); PROTEIN,URINE 2+ (NEGATIVE); UROBILINOGEN,URINE 4 MG/DL (NORMAL)
[2018-05-30 22:32] LABS: BACTERIA,URINE MODERATE /HPF; WBC,URINE 50-100 /HPF
[2018-05-31] VITALS (38 sets, daily range): BP systolic 85–144; BP diastolic 36–64
[2018-05-31] MEDS: PROPOFOL DRIP (ICU) 100 ML IV SCH ×2 (02:22→09:30)
[2018-05-31 03:26] LABS: BASOPHILS % (AUTO) 0 % (0-10); EOSINOPHILS # (AUTO) 0.2 10^3/uL (0.0-0.3); EOSINOPHILS % (AUTO) 3 % (0-10); HEMATOCRIT 25 % (35-52); HEMOGLOBIN 7.5 G/DL (11.5-16.0); LYMPHOCYTES # (AUTO) 0.7 X 10^3 (1.0-4.0); LYMPHOCYTES % (AUTO) 12 % (12-44); MEAN CORPUSCULAR HEMOGLOBIN 31 PG (25-34); MEAN CORPUSCULAR HGB CONC 31 G/DL (32-36); MEAN CORPUSCULAR VOLUME 100 FL (80-99); MEAN PLATELET VOLUME 9.9 FL (7.4-10.4); MONOCYTES # (AUTO) 0.5 X 10^3 (0.0-1.0); MONOCYTES % (AUTO) 10 % (0-12); NEUTROPHILS # (AUTO) 3.9 X 10^3 (1.8-7.8); NEUTROPHILS % (AUTO) 74 % (42-75); PLATELET COUNT 132 10^3/uL (130-400); RED BLOOD COUNT 2.46 10^6/uL (4.35-5.85); RED CELL DISTRIBUTION WIDTH 15.4 % (10.0-14.5); WHITE BLOOD COUNT 5.2 10^3/uL (4.3-11.0)
[2018-05-31 03:42] LABS: CALCIUM 9.1 MG/DL (8.5-10.1); CREATININE SERUM 2.33 MG/DL (0.60-1.30); MAGNESIUM 1.9 MG/DL (1.8-2.4); PHOSPHORUS 2.7 MG/DL (2.3-4.7); POTASSIUM 3.9 MMOL/L (3.6-5.0)
[2018-05-31 04:00] LABS: ABG BASE EXCESS 9.8 MMOL/L (-2.5-2.5); ABG OXYGEN SATURATION 97 % (94-100); ABG PCO2 42 MMHG (35-45); ABG PH 7.51 (7.37-7.43); ABG PO2 75 MMHG (79-93); ABG TCO2 34.8 MMOL/L (21.0-31.0)
[2018-05-31] MEDS: NS IV 1000 ML 1,000 ML IV SCH ×2 (04:00→16:16)
[2018-05-31 04:01] LABS: ALLENS TEST ART LINE; INSPIRED O2 50%; PATIENT TEMP 98.8; VENTILATOR YES
--- NOTE | 2018-05-31 05:02 | Pulmonary Progress Note ---
SAMIR KENDALL MED STUDENT 05/31/18 0502: Subjective Date Seen by a Provider: May 31, 2018 Time Seen by a Provider: 04:56 Subjective/Events-last exam Patient is sedated on the ventilator. Her nurse reports that BP has been on the low side overnight but urine output is increased and the night was otherwise uneventful. Sepsis Event Evaluation Height, Weight, BMI Height: 5'4.00" Weight: 251lbs. 4.0oz. [id number]; 43.1 BMI Method:Stated Focused Exam Lactate Level 05/30/18 14:30: Lactic Acid Level 1.29 Respiratory: Lungs Clear, Respiratory Distress, Other (on ventilator) Cardiovascular: No Murmur, Tachycardia Skin: normal color, warm/dry Exam Exam Vital Signs Date Time Temp Pulse Resp B/P (MAP) Pulse Ox O2 Delivery O2 Flow Rate FiO2 05/31/18 04:00 98.8 100 14 111/45 (67) 96 Mechanical Ventilator 50.00 05/31/18 03:34 91 18 96 50 05/31/18 03:00 105 17 108/47 (67) 98 Mechanical Ventilator 50.00 05/31/18 02:22 97.5 98 14 102/43 98 Mechanical Ventilator 50.00 05/31/18 02:00 98 14 102/43 (62) 98 Mechanical Ventilator 50.00 05/31/18 01:08 91 18 94 50 05/31/18 01:00 91 14 101/39 (59) 100 Mechanical Ventilator 50.00 05/31/18 01:00 94 05/31/18 00:00 88 17 119/51 (73) 92 Mechanical Ventilator 50.00 05/30/18 23:29 Mechanical Ventilator 50.00 05/30/18 23:27 92 18 98 60 05/30/18 23:00 90 18 113/45 (67) 99 Mechanical Ventilator 70.00 05/30/18 22:00 90 17 133/56 (81) 94 Mechanical Ventilator 70.00 05/30/18 21:37 81 18 95 70 05/30/18 21:00 86 23 134/55 (81) 93 Mechanical Ventilator 70.00 05/30/18 20:00 61 14 114/48 (70) 93 Mechanical Ventilator 70.00 05/30/18 20:00 93 Mechanical Ventilator 70 05/30/18 19:45 97.5 73 18 110/40 (63) 93 Mechanical Ventilator 70.00 05/30/18 19:08 58 18 95 70 05/30/18 19:00 73 05/30/18 19:00 76 17 114/47 (69) 96 Mechanical Ventilator 70.00 05/30/18 18:00 71 19 95 Mechanical Ventilator 70.00 116/46 (69) 05/30/18 17:30 58 11 96 Mechanical Ventilator 70.00 100/39 (59) 05/30/18 17:00 66 15 92 Mechanical Ventilator 70.00 101/48 (65) 05/30/18 16:45 63 11 99 Mechanical Ventilator 70.00 92/41 (58) 05/30/18 16:11 72 22 92 70 05/30/18 16:00 68 17 99 Mechanical Ventilator 70.00 108/43 (64) 05/30/18 15:54 105/41 05/30/18 15:00 76 14 88/37 (54) 90 Mechanical Ventilator 85.00 115/52 (73) 05/30/18 14:00 73 99/64 (76) 95 Mechanical Ventilator 85.00 05/30/18 13:48 67 18 100 85 05/30/18 13:45 64 17 100/62 (75) 100 Mechanical Ventilator 85.00 05/30/18 13:30 66 88/63 (71) 97 Mechanical Ventilator 85.00 05/30/18 13:15 69 14 129/83 (98) 93 High Flow N/C 12.00 05/30/18 13:09 71 05/30/18 13:00 66 13 92 High Flow N/C 12.05/30/18 12:45 81 10 115/36 (62) 96 High Flow N/C 12.00 05/30/18 12:30 75 138/72 (94) 94 High Flow N/C 12.00 05/30/18 12:15 86 127/72 (90) High Flow N/C 12.00 05/30/18 11:55 96.8 77 14 130/60 (83) 90 High Flow N/C 12.00 05/30/18 10:55 High Flow N/C 12.00 05/30/18 10:30 86 Nasal Cannula 6.00 05/30/18 10:30 96.8 77 14 130/60 (83) 90 High Flow N/C 12.00 05/30/18 08:00 91 Nasal Cannula 5.00 05/30/18 07:31 97.5 80 20 152/65 (94) 91 Nasal Cannula 5.00 05/30/18 07:24 76 05/30/18 06:20 97.3 79 20 139/61 (87) 90 Nasal Cannula 3.00 05/30/18 05:13 Nasal Cannula 3.00 I & O 05/31/18 07:00 Intake Total 1000 ml Output Total 695 ml Balance 305 ml Height & Weight Height: 5'4.00" Weight: 251lbs. 4.0oz. [id number]; 43.1 BMI Method:Stated General Appearance: Obese, Other (on ventilator) Neck: Supple Respiratory: Lungs Clear, Respiratory Distress, Other (on ventilator) Cardiovascular: No Murmur, Tachycardia Capillary Refill: Less Than 3 Seconds Gastrointestinal: normal bowel sounds, soft Neurologic/Psychiatric: Other (sedated) Skin: Normal Color, Warm/Dry Results Lab Laboratory Tests 05/30/18 02:15 05/30/18 04:38 05/30/18 12:16 05/31/18 03:15 Assessment/Plan Assessment/Plan Acute respiratory failure -Continue ventilator -FiO2 50% Left lung opacification secondary to infiltrate, atelectasis, and effusion -Bronchoscopy this morning -continue Abx (vancomycin, zosyn) Acute on chronic renal failure -Urine output increased after lasix given last night -IVF -Monitor Anemia -Hgb 7.5 today -Check fecal occult blood test Chronic back pain Unresponsive -CT of head negative for acute change -Probably secondary to c02 narcosis -Pt received at least 2mg of ativan last night Morbid obesity with probable VICKI BRISEIDA IBRAHIM DO 05/31/18 0540: Subjective Time Seen by a Provider: 05:31 Exam Exam General Appearance: Obese, Other (on ventilator sedated) Respiratory: Other (on ventilator) Cardiovascular: Tachycardia Gastrointestinal: normal bowel sounds, soft Neurologic/Psychiatric: Other (sedated) Skin: Normal Color, Warm/Dry Assessment/Plan Assessment/Plan Acute respiratory failure -Continue ventilator -FiO2 50% Left lung atelectasis with small -moderate amount of pleural effusion -Bronchoscopy this morning -continue Abx (vancomycin, zosyn) Acute on chronic renal failure -Urine output increased after lasix given last night -IVF -- decrease to 50 cc/hr -Continue 40mg of lasix daily -Monitor Anemia -repeat H&H Q12 -Check fecal occult blood test Chronic back pain Unresponsive -CT of head negative for acute change -Probably secondary to c02 narcosis -D/C ativan Morbid obesity with probable VICKI SAMIR KENDALL MED STUDENT May 31, 2018 05:02 BRISEIDA IBRAHIM DO May 31, 2018 05:40
[2018-05-31] MEDS: MAGNESIUM 1 GM/100 ML IVPB 100 ML IV SCH (05:18)
[2018-05-31] MEDS: KCL 20 MEQ TAB (K-DUR) PO SCH (05:18)
[2018-05-31] MEDS: POTASSIUM CL 10MEQ/50ML IVPB 50 ML IV SCH (05:18)
[2018-05-31] MEDS: inSUlin ASPART (NovoLOG) 1 UNIT/0.01 ML (CHARGE PER UNIT) SC SCH ×5 (05:19→23:11)
[2018-05-31] MEDS: PIPERACILLIN/TAZO 4.5 GM/NS 100 ML IV SCH ×6 (05:58→21:22)
[2018-05-31] MEDS ORDERED: RT-ALBUTEROL/IPRATROPIUM 3 ML (DUONEB) VIAL INH PRN (07:00)
[2018-05-31] MEDS ORDERED: NS IV 500 ML 500 ML IV ONE ×2 (07:30→18:00)
--- NOTE | 2018-05-31 07:36 | Diagnostic Imaging Report ---
INDICATION: Intubated. COMPARISON: 05/30/2018. FINDINGS: Single view of the chest demonstrates increasing left-sided effusion. The right lung remains clear. The heart is prominent with central vascular congestion. There is dependent atelectasis in the left lung base. Support lines are stable. No pneumothorax. IMPRESSION: 1. Slightly increased left-sided effusion with dependent atelectasis. 2. Stable support lines without pneumothorax. Dictated by: Dictated on workstation # [id number]
[2018-05-31 08:14] LABS: ABG BASE EXCESS 8.6 MMOL/L (-2.5-2.5); ABG OXYGEN SATURATION 96 % (94-100); ABG PCO2 48 MMHG (35-45); ABG PH 7.45 (7.37-7.43); ABG PO2 72 MMHG (79-93); ABG TCO2 34.2 MMOL/L (21.0-31.0)
--- NOTE | 2018-05-31 08:14 | NUR ---
Order received for cardizem gtt due to HR increased to upper 120s from Dr. Jorge
[2018-05-31 08:17] LABS: INSPIRED O2 50%; VENTILATOR YES
--- NOTE | 2018-05-31 08:30 | NUR ---
Dr. Jorge at bedside. Order for troponin et BNP. Labs drawn from art line
[2018-05-31] MEDS: PANTOPRAZOLE 40 MG (PROTONIX) VIAL IV SCH (08:37)
[2018-05-31] MEDS: PHENAZOPYRIDINE 100 MG (PYRIDIUM) TABLET PO SCH ×3 (08:37→20:29)
[2018-05-31] MEDS: LEVOTHYROXINE 100 MCG INJ (SYNTHROID) VIAL IV SCH (08:37)
[2018-05-31] MEDS: DILTIAZEM INJECTION 125 MG in NS (IVPB) 100 ML IV SCH ×2 (08:50→14:44)
[2018-05-31] MEDS ORDERED: ENOXAPARIN 40 MG/0.4 ML (LOVENOX) SYR SC SCH (09:00)
[2018-05-31] MEDS ORDERED: ENOXAPARIN 30 MG/0.3 ML (LOVENOX) SYR SC SCH (09:00)
--- NOTE | 2018-05-31 09:09 | NUR ---
Pt is pulling at restraints et attempting to bite on ETT. Fent increased from 25mcg to 50mcg. HR remains in upper 120s with BP 100s/40s.
--- NOTE | 2018-05-31 09:31 | NUR ---
RT called ABG results to Dr. Snow et vent rate decreased to 12bpm ert changed to warmed setting
--- NOTE | 2018-05-31 09:50 | NUR ---
Texted Dr. Mina to notifiy of lab results et continues tachycardia on 20 cardizem
--- NOTE | 2018-05-31 10:08 | NUR ---
Dr. Morrell in room with medical student
--- NOTE | 2018-05-31 10:17 | Progress Note-Hospitalist ---
RADHAMICHELLE DO 05/31/18 1017: Subjective HPI/CC On Admission Date Seen by Provider: May 31, 2018 Time Seen by Provider: 09:30 Subjective/Events-last exam Patient remains intubated due to CO2 narcosis Family at bedside Pt has long-standing illnesses and poor performance for the past 3 yrs per her sister Patient does not appear to be in any pain Focused Exam Lactate Level 05/30/18 14:30: Lactic Acid Level 1.29 Objective Exam Vital Signs Vital Signs Date Time Temp Pulse Resp B/P (MAP) Pulse Ox O2 Delivery O2 Flow Rate FiO2 06/01/18 04:10 129 18 112/52 (72) 96 Mechanical Ventilator 50.00 06/01/18 04:09 50 06/01/18 03:28 99.9 Capillary Refill : Less Than 3 Seconds General Appearance: No Apparent Distress, WD/WN, Chronically ill, Obese, Other (intubated) Respiratory: Chest Non Tender, Lungs Clear, Normal Breath Sounds, No Accessory Muscle Use, No Respiratory Distress, Other (vent coarseness) Cardiovascular: Regular Rate, Rhythm, No Edema, No Gallop, No JVD, No Murmur, Normal Peripheral Pulses Results/Procedures Lab Laboratory Tests 05/31/18 12:15 05/31/18 16:58 06/01/18 03:20 Patient resulted labs reviewed. 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 Obtaining an accurate hx of this fall was complicated due to the pts mentation, which the family stated is her usual baseline. Head CT done in ER was normal. Pt was admitted to general floor, but was transferred to the ICU shortly after post emergent intubation. ABG showed pH 7.1, pCO2 100. Zosyn/ vanc were started empirically. CXR showed a right pleural effusion that has required a thoracentesis previously, but was not indicated at this time. Of note , the pt was admitted to [facility] recently (05/20 - 05/25/18) due to fever, bacteremia , and UTI. She presented to the ER on 05/28/18 for SOB, nausea, and generalized weakness. Today the pt is still sedated and intubated. Nursing states that the pt was hypotensive overnight (~90/40). Has been tachycardic this morning and required a diltiazem drip. Continuing abx (vanc and piperacillin/tazobactam). AM labs showed a drop in hgb 7.5. Assessment/Plan Assessment and Plan Assess & Plan/Chief Complaint Assessment: Acute respiratory failure requiring intubation Sepsis L pleural effusion Anemia GAVE AFib CAD Plan: Bronchoscopy planed this AM Fecal occult blood testing Transfusion? 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
--- NOTE | 2018-05-31 10:45 | NUR ---
[facility] to pass message et text to Dr. Jorge
--- NOTE | 2018-05-31 11:00 | NUR ---
Pastoral care visit with pts and sister.
[2018-05-31] MEDS: RT-ALBUTEROL/IPRATROPIUM 3 ML (DUONEB) VIAL INH SCH ×4 (11:15→21:56)
--- NOTE | 2018-05-31 12:00 | NUR ---
Dr. Jorge called et order received for amio bolus et gtt et to keep cardizem on
[2018-05-31] MEDS ORDERED: LIDOCAINE PF 1% 2 ML AMP IJ ONE (12:08)
[2018-05-31] MEDS ORDERED: AMIODARONE FOR BOLUS 150 MG in D5W 100 ML IVPB 100 ML IV NR (12:15)
--- NOTE | 2018-05-31 12:20 | Occ Therapy Progress Note ---
Therapy Progress Note OT order received and chart reviewed. Pt. is sedated and on ventilator at this time. Will continue to monitor and evaluate when pt. off vent support. [id number] SANDRA COMER OT May 31, 2018 12:20
[2018-05-31 12:31] LABS: BASOPHILS % (AUTO) 0 % (0-10); EOSINOPHILS # (AUTO) 0.1 10^3/uL (0.0-0.3); EOSINOPHILS % (AUTO) 1 % (0-10); HEMATOCRIT 25 % (35-52); HEMOGLOBIN 7.5 G/DL (11.5-16.0); LYMPHOCYTES % (AUTO) 14 % (12-44); MEAN CORPUSCULAR HEMOGLOBIN 31 PG (25-34); MEAN CORPUSCULAR HGB CONC 31 G/DL (32-36); MEAN CORPUSCULAR VOLUME 100 FL (80-99); MEAN PLATELET VOLUME 10.4 FL (7.4-10.4); MONOCYTES # (AUTO) 0.9 X 10^3 (0.0-1.0); MONOCYTES % (AUTO) 12 % (0-12); NEUTROPHILS # (AUTO) 5.2 X 10^3 (1.8-7.8); NEUTROPHILS % (AUTO) 73 % (42-75); PLATELET COUNT 153 10^3/uL (130-400); RED BLOOD COUNT 2.45 10^6/uL (4.35-5.85); RED CELL DISTRIBUTION WIDTH 15.9 % (10.0-14.5); WHITE BLOOD COUNT 7.2 10^3/uL (4.3-11.0)
[2018-05-31] MEDS: DEXTROSE IV SCH ×4 (12:37→20:28)
[2018-05-31] MEDS: AMIODARONE IV SCH ×4 (12:37→20:28)
[2018-05-31 12:55] LABS: CREATININE SERUM 2.33 MG/DL (0.60-1.30); POTASSIUM 3.5 MMOL/L (3.6-5.0)
[2018-05-31 12:56] LABS: ALBUMIN 2.8 GM/DL (3.2-4.5); BILIRUBIN,TOTAL 0.6 MG/DL (0.1-1.0); CALCIUM 8.9 MG/DL (8.5-10.1); TOTAL PROTEIN 6.2 GM/DL (6.4-8.2)
[2018-05-31] MEDS ORDERED: TORS20TA3 PO (13:07)
[2018-05-31] MEDS ORDERED: MAGN400T39 PO (13:08)
[2018-05-31] MEDS ORDERED: ROSU40TA22 PO (13:08)
--- NOTE | 2018-05-31 13:09 | NUR ---
Most recent labs, updates given to Dr. Snow, informed of the patient's HR remains 120s to 131, started Amio gtt, BP 98/39, has had 80 mls of urine since 1000. Orders received to transfuse one unit PRBCs
--- NOTE | 2018-05-31 13:12 | NUR ---
Spoke to patients he did not know what she took. Received a recently filled list from [facility] pharmacy from the past 3 months. She filled Gluco strips but no insulin.
[2018-05-31] MEDS ORDERED: NS IV 500 ML 500 ML IV SCH (13:15)
--- NOTE | 2018-05-31 13:30 | Cardiology Progress Note ---
Cardiology SOAP Progress Note Subjective: Intubated/ventilated. Atrial fibrillation with rapid ventricular rate. Objective: I&O/Vital Signs 05/31/18 05/31/18 05/31/18 05/31/18 06:00 06:09 07:02 07:02 Pulse 104 107 106 Resp 19 14 14 B/P (MAP) 106/43 (64) 117/48 (71) Pulse Ox 96 95 O2 Delivery Mechanical Ventilator Mechanical Ventilator O2 Flow Rate 50.00 50.00 05/31/18 05/31/18 05/31/18 05/31/18 07:04 08:00 08:00 09:00 Pulse 111 128 129 Resp 18 25 34 B/P (MAP) 115/50 (71) 109/47 (67) Pulse Ox 95 94 93 93 O2 Delivery Mechanical Ventilator Mechanical Ventilator Mechanical Ventilator O2 Flow Rate 50.00 50.00 FiO2 50 50 05/31/18 05/31/18 05/31/18 05/31/18 09:30 09:31 10:00 11:00 Pulse 130 130 130 Resp 24 15 18 B/P (MAP) 107/47 107/45 (65) 102/42 (62) Pulse Ox 100 100 100 O2 Delivery Mechanical Ventilator Mechanical Ventilator O2 Flow Rate 50.00 50.00 FiO2 50 05/31/18 05/31/18 05/31/18 05/31/18 11:15 12:00 12:00 13:00 Pulse 131 133 129 Resp 23 22 11 B/P (MAP) 116/46 (69) 106/43 (64) Pulse Ox 100 92 91 91 O2 Delivery Mechanical Ventilator Mechanical Ventilator Mechanical Ventilator O2 Flow Rate 50.00 60.00 FiO2 50 60 05/31/18 05/31/18 05/31/18 05/31/18 13:06 13:30 13:31 13:53 Temp 100.8 99.9 Pulse 123 121 121 116 Resp 21 23 22 B/P (MAP) 105/41 104/39 Pulse Ox 93 92 93 O2 Delivery Mechanical Ventilator Mechanical Ventilator FiO2 60 60 60 05/31/18 05/31/18 05/31/18 05/31/18 13:58 14:00 15:00 15:02 Temp 99.4 Pulse 110 112 111 114 Resp 19 28 21 23 B/P (MAP) 97/37 102/38 (59) 108/44 (65) Pulse Ox 92 93 93 91 O2 Delivery Mechanical Ventilator Mechanical Ventilator Mechanical Ventilator O2 Flow Rate 60.00 60.00 FiO2 60 60 05/31/18 05/31/18 05/31/18 05/31/18 15:50 15:54 16:00 16:00 Temp 100.1 100.1 Pulse 114 114 Resp 25 27 B/P (MAP) 100/44 101/45 (63) Pulse Ox 94 94 95 O2 Delivery Mechanical Ventilator Mechanical Ventilator Mechanical Ventilator O2 Flow Rate 60.00 FiO2 60 60 05/31/18 16:31 Pulse 118 Resp 19 Pulse Ox 96 FiO2 60 05/31/18 00:00 Intake Total 1000 ml Output Total 295 ml Balance 705 ml Weight (Pounds): 251 Weight (Ounces): 4.0 Weight (Calculated Kilograms): 113.226776 Constitutional: appears stated age; No apparent distress; well-developed, well- nourished, other (intubated and ventilated.) Respiratory: respiratory distress, chest is bilaterally symmetric, other (no respiratory sounds left lung) Cardiovascular: irregularly irregular, tachycardia, S1 and S2 Gastrointestional: No tender, No soft, No round, No distended, No pulsatile mass, No organomegaly, No guarding, No rebound, No tenderness, No hernia, No mass, No audible bowel sounds, No abnormal bowel sounds, No abdominal bruits, No spleenomegaly, No other Extremities: No normal range of motion, No non-tender, No normal inspection, No pedal edema, No calf tenderness, No normal capillary refill, No pelvis stable , No calf tenderness, No inflammation, No pedal edema, No slow capillary refill , No swelling, No other, No abrasion, No clubbing, No cyanosis, No ecchymosis, No laceration, No no lower extremity edema bilateral, No significant edema, No tenderness, No wound Neurologic/Psychiatric: other (intubated and ventilated.), power is 5/5 both on sides Skin: No normal color, No warm/dry, No cyanosis, No cool, No diaphoresis, No damp, No ecchymosis, No jaundice, No mottled, No pallor, No rash, No tattoos/ piercings, No ulcerations, No rash on exposed areas, No ulcerations on exposed areas, No other Results/Procedures: Labs Laboratory Tests 05/30/18 21:23: Glucometer 129H 05/30/18 21:50: Urine Color AMBERH, Urine Clarity SLIGHTLY CLOUDY, Urine pH 5, Urine Specific [place] 1.015L, Urine Protein 2+H, Urine Glucose (UA) NEGATIVE, Urine Ketones NEGATIVE, Urine Nitrite POSITIVEH, Urine Bilirubin 2+H, Urine Urobilinogen 4H, Urine Leukocyte Esterase 3+H, Urine RBC (Auto) 5+H, Urine RBC 10-25H, Urine WBC 50-100H, Urine Squamous Epithelial Cells 10-25H, Urine Crystals NONE, Urine Bacteria MODERATEH, Urine Casts NONE, Urine Mucus MODERATEH, Urine Culture Indicated YES 05/31/18 03:15: White Blood Count 5.2, Red Blood Count 2.46L, Hemoglobin 7.5L, Hematocrit 25L, Mean Corpuscular Volume 100H, Mean Corpuscular Hemoglobin 31, Mean Corpuscular Hemoglobin Concent 31L, Red Cell Distribution Width 15.4H, Platelet Count 132, Mean Platelet Volume 9.9, Neutrophils (%) (Auto) 74, Lymphocytes (%) (Auto) 12, Monocytes (%) (Auto) 10, Eosinophils (%) (Auto) 3, Basophils (%) (Auto) 0, Neutrophils # (Auto) 3.9, Lymphocytes # (Auto) 0.7L, Monocytes # (Auto) 0.5, Eosinophils # (Auto) 0.2, Basophils # (Auto) 0.0, Sodium Level 143, Potassium Level 3.9, Chloride Level 101, Carbon Dioxide Level 29, Anion Gap 13, Blood Urea Nitrogen 44H, Creatinine 2.33H, Estimat Glomerular Filtration Rate 21, BUN/ Creatinine Ratio 19, Glucose Level 86, Calcium Level 9.1, Phosphorus Level 2.7, Magnesium Level 1.9 05/31/18 03:57: Blood Gas Puncture Site RT FEMORAL, Blood Gas Patient Temperature 98.8, Arterial Blood pH 7.51H, Arterial Blood Partial Pressure CO2 42, Arterial Blood Partial Pressure O2 75L, Arterial Blood HCO3 34H, Arterial Blood Total CO2 34.8H , Arterial Blood Oxygen Saturation 97, Arterial Blood Base Excess 9.8H, Osvaldo Test ART LINE, Blood Gas Ventilator Setting YES, Blood Gas Inspired Oxygen 50% 05/31/18 06:00: Cytology Report Status SEE FOOTNOTE 05/31/18 08:09: Blood Gas Puncture Site RT GROIN, Blood Gas Patient Temperature 99.0, Arterial Blood pH 7.45H, Arterial Blood Partial Pressure CO2 48H, Arterial Blood Partial Pressure O2 72L, Arterial Blood HCO3 33H, Arterial Blood Total CO2 34.2H, Arterial Blood Oxygen Saturation 96, Arterial Blood Base Excess 8.6H, Osvaldo Test NA, Blood Gas Ventilator Setting YES, Blood Gas Inspired Oxygen 50% 05/31/18 08:47: Troponin I < 0.30, B-Type Natriuretic Peptide 278.7H 05/31/18 11:36: Glucometer 112H 05/31/18 12:15: White Blood Count 7.2, Red Blood Count 2.45L, Hemoglobin 7.5L, Hematocrit 25L, Mean Corpuscular Volume 100H, Mean Corpuscular Hemoglobin 31, Mean Corpuscular Hemoglobin Concent 31L, Red Cell Distribution Width 15.9H, Platelet Count 153, Mean Platelet Volume 10.4, Neutrophils (%) (Auto) 73, Lymphocytes (%) (Auto) 14 , Monocytes (%) (Auto) 12, Eosinophils (%) (Auto) 1, Basophils (%) (Auto) 0, Neutrophils # (Auto) 5.2, Lymphocytes # (Auto) 1.0, Monocytes # (Auto) 0.9, Eosinophils # (Auto) 0.1, Basophils # (Auto) 0.0, Sodium Level 143, Potassium Level 3.5L, Chloride Level 102, Carbon Dioxide Level 26, Anion Gap 15H, Blood Urea Nitrogen 44H, Creatinine 2.33H, Estimat Glomerular Filtration Rate 21, BUN/ Creatinine Ratio 19, Glucose Level 131H, Calcium Level 8.9, Corrected Calcium 9.9, Total Bilirubin 0.6, Aspartate Amino Transf (AST/SGOT) 23, Alanine Aminotransferase (ALT/SGPT) 9, Alkaline Phosphatase 55, Total Protein 6.2L, Albumin 2.8L 05/31/18 14:15: Blood Gas Puncture Site RFA, Blood Gas Patient Temperature 99.4, Arterial Blood pH 7.41, Arterial Blood Partial Pressure CO2 44, Arterial Blood Partial Pressure O2 92, Arterial Blood HCO3 27, Arterial Blood Total CO2 28.6, Arterial Blood Oxygen Saturation 99, Arterial Blood Base Excess 3.0H, Osvaldo Test YES-POS , Blood Gas Ventilator Setting YES, Blood Gas Inspired Oxygen 60 05/31/18 16:58: Hemoglobin 7.9L, Hematocrit 25L Microbiology 05/30/18 Blood Culture - Preliminary, Resulted No growth 05/31/18 Gram Stain - Final, Resulted 05/31/18 Bronchial Culture, Resulted Pending 05/31/18 Fungal Culture 1, Resulted Pending 05/30/18 Urine Culture - Preliminary, Resulted Escherichia coli A/P: Assessment/Dx: Status post fall, CO2 narcosis, severe respiratory distress, requiring intubation/ventilation, CAD, CABG, Hyperlipidemia, Acute on chronic diastolic congestive heart failure, Moderate to severe mitral regurgitation, [id number] pulmonary hypertension, Enlarged right ventricle, Acute on chronic kidney injury, 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 Plan: Status post fall, unclear etiology. CO2 narcosis, severe respiratory distress, requiring intubation/ventilation, Dr. Snow following. CAD, CABG, continue outpatient medications. Acute coronary syndrome has been ruled out with negative serial troponin. Atrial fibrillation with rapid ventricular rate. We started with Cardizem infusion. Cardizem drip at 20 mg per hour with no significant response. We'll start amiodarone infusion. It will be difficult to control atrial fibrillation due to significant systemic condition. Hyperlipidemia, rosuvastatin when she is able to tolerate by mouth. Acute on chronic diastolic congestive heart failure, mildly elevated BNP. Echocardiogram shows normal LV function with diastolic dysfunction. 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 Large left-sided pleural effusion, I reviewed all radiological data including chest x-rays and CT scan with Dr. Snow. Likely infiltrate left lower lobe as well as large pleural effusion. Dr. Holt on board. Moderate to severe mitral regurgitation, low-dose Lasix is recommended. [id number] pulmonary hypertension, continue to monitor. Mild RV enlargement on echocardiogram done 05/30/2018. Critically ill patient, over 30 minutes spent taking care of the patient and reviewing all the information and making a cardiac plan. Thank you for your consultation. Please call me if you have any questions. Estela Jorge MD, FACP, FACC, FSCAI, FHRS, CCDS Interventional Cardiology Cardiac Electrophysiology Vascular Medicine and Endovascular Interventions Focused Exam Lactate Level 05/30/18 14:30: Lactic Acid Level 1.29 Wei JORGE MD May 31, 2018 1:30 pm
--- NOTE | 2018-05-31 13:43 | NUR ---
PRBCs to hang but spike through bag et leaking. Bag disguarded and 2nd unit retrieved for transfusion
[2018-05-31 14:22] LABS: ABG OXYGEN SATURATION 99 % (94-100); ABG PCO2 44 MMHG (35-45); ABG PH 7.41 (7.37-7.43); ABG PO2 92 MMHG (79-93); ABG TCO2 28.6 MMOL/L (21.0-31.0)
[2018-05-31 14:24] LABS: ALLENS TEST YES-POS; INSPIRED O2 60; PATIENT TEMP 99.4; VENTILATOR YES
--- NOTE | 2018-05-31 14:50 | NUR ---
Text sent to Dr. Snow regarding HR, BP, urine output, et ABG results.
--- NOTE | 2018-05-31 15:31 | NUR ---
Called Dr. Snow with no answer. Called e-ICU et spoke with THOMPSON Suazo et Dr. Carrion. Explained pt HR today - increasing to 130s et currently in 110s. BP with MAP around 65 throughout the day et currently remaining around 60. Informed of vent changes including FIO2 increased to 60% et PEEP up to 10. Discussed urine output of 15mL over last 1.5hours. Discussed increased bilat upper et lower extremity edema. Dr. Carrion camera'd into room et assessed pt while speaking to family et this RN. Order to hold cardizem at this time. Order to DC propofol et start precedex. On phone with e-ICU for 21 minutes during this conversation giving updates et receiving orders
[2018-05-31] MEDS ORDERED: VANCOMYCIN 1 GM/NS 250 ML IVPB IV SCH ×2 (16:00)
[2018-05-31] MEDS: DEXMEDETOMIDINE INJECTION 200 MCG in NS (IVPB) 50 ML IV SCH ×3 (16:30→23:00)
[2018-05-31 17:08] LABS: HEMOGLOBIN 7.9 G/DL (11.5-16.0)
--- NOTE | 2018-05-31 17:22 | NUR ---
Called [facility] et spoke with Dr. Carrion. Notified him SBP 90 with MAP 60. Order received to administer 500mL NS bolus over 30 minutes
[2018-05-31] MEDS ORDERED: NOREPINEPHRINE 4 MG/4 ML (LEVOPHED) AMP IV ONE (17:50)
[2018-05-31] MEDS ORDERED: NS (IVPB) 250 ML ONE (17:50)
--- NOTE | 2018-05-31 17:50 | NUR ---
Called Dr. Snow et updated with BP 80/30s et MAP 55-59. Informed of urine outpout for past 4 hours of 75 with CVP 20. Order to start levophefd gtt received et to titrate to maintain MAP over 65 et SBP over 90
[2018-05-31] MEDS ORDERED: NS IV 500 ML 500 ML IV PRN (18:00)
[2018-05-31] MEDS: NOREPINEPHRINE 4 MG in NS (IVPB) 250 ML IV SCH (18:02)
--- NOTE | 2018-05-31 19:20 | Progress Note ---
Subjective Date Seen by a Provider: May 31, 2018 Time Seen by a Provider: 17:00 Subjective/Events-last exam patient intubated sedated. lines no issues. No family at bedside. Focused Exam Lactate Level 05/30/18 14:30: Lactic Acid Level 1.29 Objective Exam Vital Signs Date Time Temp Pulse Resp B/P (MAP) Pulse Ox O2 Delivery O2 Flow Rate FiO2 05/31/18 18:01 107 17 98 60 05/31/18 18:00 110 28 86/37 (53) 96 Mechanical Ventilator 60.00 05/31/18 17:00 116 32 108/45 (66) 95 Mechanical Ventilator 60.00 05/31/18 16:31 118 19 96 60 05/31/18 16:00 114 27 101/45 (63) 95 Mechanical Ventilator 60.00 05/31/18 16:00 94 Mechanical Ventilator 60 05/31/18 15:54 100.1 114 25 100/44 94 Mechanical Ventilator 60 05/31/18 15:50 100.1 05/31/18 15:02 114 23 91 60 05/31/18 15:00 111 21 108/44 (65) 93 Mechanical Ventilator 60.00 05/31/18 14:00 112 28 102/38 (59) 93 Mechanical Ventilator 60.00 05/31/18 13:58 99.4 110 19 97/37 92 Mechanical Ventilator 60 05/31/18 13:53 99.9 116 22 104/39 93 Mechanical Ventilator 60 05/31/18 13:31 121 23 92 60 05/31/18 13:30 100.8 121 21 105/41 93 Mechanical Ventilator 60 05/31/18 13:06 123 05/31/18 13:00 129 11 106/43 (64) 91 Mechanical Ventilator 60.00 05/31/18 12:00 91 Mechanical Ventilator 60 05/31/18 12:00 133 22 116/46 (69) 92 Mechanical Ventilator 50.00 05/31/18 11:15 131 23 100 50 05/31/18 11:00 130 18 102/42 (62) 100 Mechanical Ventilator 50.00 05/31/18 10:00 130 15 107/45 (65) 100 Mechanical Ventilator 50.00 05/31/18 09:31 130 24 100 50 05/31/18 09:30 107/47 05/31/18 09:00 129 34 109/47 (67) 93 Mechanical Ventilator 50.00 05/31/18 08:00 93 Mechanical Ventilator 50 05/31/18 08:00 128 25 115/50 (71) 94 Mechanical Ventilator 50.00 05/31/18 07:04 111 18 95 50 05/31/18 07:02 106 14 117/48 (71) 95 Mechanical Ventilator 50.00 05/31/18 07:02 107 05/31/18 06:09 14 05/31/18 06:00 104 19 106/43 (64) 96 Mechanical Ventilator 50.00 05/31/18 05:00 100 15 117/46 (69) 97 Mechanical Ventilator 50.00 05/31/18 04:00 98.8 100 14 111/45 (67) 96 Mechanical Ventilator 50.00 05/31/18 03:34 91 18 96 50 05/31/18 03:00 105 17 108/47 (67) 98 Mechanical Ventilator 50.00 05/31/18 02:22 97.5 98 14 102/43 98 Mechanical Ventilator 50.00 05/31/18 02:00 98 14 102/43 (62) 98 Mechanical Ventilator 50.00 05/31/18 01:08 91 18 94 50 05/31/18 01:00 91 14 101/39 (59) 100 Mechanical Ventilator 50.00 05/31/18 01:00 94 05/31/18 00:00 88 17 119/51 (73) 92 Mechanical Ventilator 50.00 05/30/18 23:29 Mechanical Ventilator 50.00 05/30/18 23:27 92 18 98 60 05/30/18 23:00 90 18 113/45 (67) 99 Mechanical Ventilator 70.00 05/30/18 22:00 90 17 133/56 (81) 94 Mechanical Ventilator 70.00 05/30/18 21:37 81 18 95 70 05/30/18 21:00 86 23 134/55 (81) 93 Mechanical Ventilator 70.00 05/30/18 20:00 61 14 114/48 (70) 93 Mechanical Ventilator 70.00 05/30/18 20:00 93 Mechanical Ventilator 70 05/30/18 19:45 97.5 73 18 110/40 (63) 93 Mechanical Ventilator 70.00 I & O 05/31/18 07:00 Intake Total 3100 ml Output Total 695 ml Balance 2405 ml Capillary Refill : Less Than 3 Seconds General Appearance: Obese, Other (on ventilator sedated) Neck: Supple Respiratory: Other (on ventilator) Cardiovascular: Tachycardia Gastrointestinal: normal bowel sounds, soft Extremity: Swelling Neurologic/Psychiatric: Other (sedated) Skin: Normal Color, Warm/Dry Lymphatic: No Adenopathy Results Lab Laboratory Tests 05/30/18 21:23: Glucometer 129H 05/30/18 21:50: Urine Color AMBERH, Urine Clarity SLIGHTLY CLOUDY, Urine pH 5, Urine Specific [place] 1.015L, Urine Protein 2+H, Urine Glucose (UA) NEGATIVE, Urine Ketones NEGATIVE, Urine Nitrite POSITIVEH, Urine Bilirubin 2+H, Urine Urobilinogen 4H, Urine Leukocyte Esterase 3+H, Urine RBC (Auto) 5+H, Urine RBC 10-25H, Urine WBC 50-100H, Urine Squamous Epithelial Cells 10-25H, Urine Crystals NONE, Urine Bacteria MODERATEH, Urine Casts NONE, Urine Mucus MODERATEH, Urine Culture Indicated YES 05/31/18 03:15: White Blood Count 5.2, Red Blood Count 2.46L, Hemoglobin 7.5L, Hematocrit 25L, Mean Corpuscular Volume 100H, Mean Corpuscular Hemoglobin 31, Mean Corpuscular Hemoglobin Concent 31L, Red Cell Distribution Width 15.4H, Platelet Count 132, Mean Platelet Volume 9.9, Neutrophils (%) (Auto) 74, Lymphocytes (%) (Auto) 12, Monocytes (%) (Auto) 10, Eosinophils (%) (Auto) 3, Basophils (%) (Auto) 0, Neutrophils # (Auto) 3.9, Lymphocytes # (Auto) 0.7L, Monocytes # (Auto) 0.5, Eosinophils # (Auto) 0.2, Basophils # (Auto) 0.0, Sodium Level 143, Potassium Level 3.9, Chloride Level 101, Carbon Dioxide Level 29, Anion Gap 13, Blood Urea Nitrogen 44H, Creatinine 2.33H, Estimat Glomerular Filtration Rate 21, BUN/ Creatinine Ratio 19, Glucose Level 86, Calcium Level 9.1, Phosphorus Level 2.7, Magnesium Level 1.9 05/31/18 03:57: Blood Gas Puncture Site RT FEMORAL, Blood Gas Patient Temperature 98.8, Arterial Blood pH 7.51H, Arterial Blood Partial Pressure CO2 42, Arterial Blood Partial Pressure O2 75L, Arterial Blood HCO3 34H, Arterial Blood Total CO2 34.8H , Arterial Blood Oxygen Saturation 97, Arterial Blood Base Excess 9.8H, Osvaldo Test ART LINE, Blood Gas Ventilator Setting YES, Blood Gas Inspired Oxygen 50% 05/31/18 06:00: Cytology Report Status SEE FOOTNOTE 05/31/18 08:09: Blood Gas Puncture Site RT GROIN, Blood Gas Patient Temperature 99.0, Arterial Blood pH 7.45H, Arterial Blood Partial Pressure CO2 48H, Arterial Blood Partial Pressure O2 72L, Arterial Blood HCO3 33H, Arterial Blood Total CO2 34.2H, Arterial Blood Oxygen Saturation 96, Arterial Blood Base Excess 8.6H, Osvaldo Test NA, Blood Gas Ventilator Setting YES, Blood Gas Inspired Oxygen 50% 05/31/18 08:47: Troponin I < 0.30, B-Type Natriuretic Peptide 278.7H 05/31/18 11:36: Glucometer 112H 05/31/18 12:15: White Blood Count 7.2, Red Blood Count 2.45L, Hemoglobin 7.5L, Hematocrit 25L, Mean Corpuscular Volume 100H, Mean Corpuscular Hemoglobin 31, Mean Corpuscular Hemoglobin Concent 31L, Red Cell Distribution Width 15.9H, Platelet Count 153, Mean Platelet Volume 10.4, Neutrophils (%) (Auto) 73, Lymphocytes (%) (Auto) 14 , Monocytes (%) (Auto) 12, Eosinophils (%) (Auto) 1, Basophils (%) (Auto) 0, Neutrophils # (Auto) 5.2, Lymphocytes # (Auto) 1.0, Monocytes # (Auto) 0.9, Eosinophils # (Auto) 0.1, Basophils # (Auto) 0.0, Sodium Level 143, Potassium Level 3.5L, Chloride Level 102, Carbon Dioxide Level 26, Anion Gap 15H, Blood Urea Nitrogen 44H, Creatinine 2.33H, Estimat Glomerular Filtration Rate 21, BUN/ Creatinine Ratio 19, Glucose Level 131H, Calcium Level 8.9, Corrected Calcium 9.9, Total Bilirubin 0.6, Aspartate Amino Transf (AST/SGOT) 23, Alanine Aminotransferase (ALT/SGPT) 9, Alkaline Phosphatase 55, Total Protein 6.2L, Albumin 2.8L 05/31/18 14:15: Blood Gas Puncture Site RFA, Blood Gas Patient Temperature 99.4, Arterial Blood pH 7.41, Arterial Blood Partial Pressure CO2 44, Arterial Blood Partial Pressure O2 92, Arterial Blood HCO3 27, Arterial Blood Total CO2 28.6, Arterial Blood Oxygen Saturation 99, Arterial Blood Base Excess 3.0H, Osvaldo Test YES-POS , Blood Gas Ventilator Setting YES, Blood Gas Inspired Oxygen 60 05/31/18 16:58: Hemoglobin 7.9L, Hematocrit 25L, Glucometer 181H Microbiology 05/30/18 Blood Culture - Preliminary, Resulted No growth 05/31/18 Gram Stain - Final, Resulted 05/31/18 Bronchial Culture, Resulted Pending 05/31/18 Fungal Culture 1, Resulted Pending 05/30/18 Urine Culture - Preliminary, Resulted Escherichia coli Assessment/Plan Assessment/Plan Assessment/Plan respiratory distress requiring intubation need for central venous access and arterial line placement. pleural effusion/infiltrate left chest reviewed ct scan and left chest infiltrate and moderate pleural effusion, patient hypotensive with low urine output. receiving 500 mL bolus continue to follow effusion, may need to be drained if continues to enlarge will sign off at this time, call if needed. Clinical Quality Measures DVT/VTE Risk/Contraindication: Risk Factor Score Per Nursin RFS Level Per Nursing on Admit: 3=High SABRINA ROSSI DO May 31, 2018 19:20
--- NOTE | 2018-05-31 21:55 | NUR ---
Patient having extreme agitation after ET suctioning. Patient attempting to get out of bed, attempting to pull ET tube. Patient thrashing about in bed. Precedex drip increased to 1mcg/kg/hr. Call placed to E-ICU at this time for PRN agitation med.
[2018-05-31] MEDS ORDERED: LORazepam INJ 2 MG/ML (ATIVAN) VIAL IV PRN (23:15)
[2018-06-01] VITALS (28 sets, daily range): BP systolic 95–130; BP diastolic 43–55
[2018-06-01] MEDS: NOREPINEPHRINE 4 MG in NS (IVPB) 250 ML IV SCH ×2 (00:34→16:13)
[2018-06-01] MEDS: DEXMEDETOMIDINE INJECTION 200 MCG in NS (IVPB) 50 ML IV SCH ×6 (01:12→13:37)
[2018-06-01] MEDS: RT-ALBUTEROL/IPRATROPIUM 3 ML (DUONEB) VIAL INH SCH ×4 (02:11→13:26)
[2018-06-01] MEDS: fentaNYL INJECTION 1,250 MCG in NORMAL SALINE 250 ML INJ PRN (02:15)
[2018-06-01 03:35] LABS: ABG BASE EXCESS 5.8 MMOL/L (-2.5-2.5); ABG OXYGEN SATURATION 100 % (94-100); ABG PCO2 41 MMHG (35-45); ABG PH 7.47 (7.37-7.43); ABG PO2 163 MMHG (79-93); ABG TCO2 30.6 MMOL/L (21.0-31.0); BASOPHILS % (AUTO) 1 % (0-10); EOSINOPHILS # (AUTO) 0.1 10^3/uL (0.0-0.3); EOSINOPHILS % (AUTO) 1 % (0-10); HEMATOCRIT 25 % (35-52); LYMPHOCYTES # (AUTO) 1.1 X 10^3 (1.0-4.0); LYMPHOCYTES % (AUTO) 17 % (12-44); MEAN CORPUSCULAR HEMOGLOBIN 31 PG (25-34); MEAN CORPUSCULAR HGB CONC 32 G/DL (32-36); MEAN CORPUSCULAR VOLUME 97 FL (80-99); MEAN PLATELET VOLUME 10.1 FL (7.4-10.4); MONOCYTES # (AUTO) 0.8 X 10^3 (0.0-1.0); MONOCYTES % (AUTO) 13 % (0-12); NEUTROPHILS # (AUTO) 4.3 X 10^3 (1.8-7.8); NEUTROPHILS % (AUTO) 69 % (42-75); PLATELET COUNT 151 10^3/uL (130-400); RED BLOOD COUNT 2.57 10^6/uL (4.35-5.85); RED CELL DISTRIBUTION WIDTH 16.2 % (10.0-14.5); WHITE BLOOD COUNT 6.3 10^3/uL (4.3-11.0)
[2018-06-01 03:36] LABS: ALLENS TEST ART LINE; INSPIRED O2 60%; PATIENT TEMP 99.9; VENTILATOR YES
[2018-06-01 03:56] LABS: CALCIUM 8.3 MG/DL (8.5-10.1); CREATININE SERUM 2.22 MG/DL (0.60-1.30); MAGNESIUM 1.6 MG/DL (1.8-2.4); PHOSPHORUS 2.7 MG/DL (2.3-4.7); POTASSIUM 3.4 MMOL/L (3.6-5.0)
[2018-06-01] MEDS: MAGNESIUM 1 GM/100 ML IVPB 100 ML IV SCH (04:08)
[2018-06-01] MEDS: KCL 20 MEQ TAB (K-DUR) PO SCH (04:08)
[2018-06-01] MEDS: POTASSIUM CL 10MEQ/50ML IVPB 50 ML IV SCH ×2 (04:08→04:17)
--- NOTE | 2018-06-01 04:47 | OPERATIVE REPORT ---
DATE OF SERVICE: 05/30/2018 PREOPERATIVE DIAGNOSIS: Need Venous catheter and arterial line. POSTOPERATIVE DIAGNOSIS: Need Venous catheter and arterial line. PROCEDURE: Ultrasound-guided right internal jugular vein central line and ultrasound-guided right femoral arterial line. SURGEON: Sabrina Holt DO ANESTHESIA: The patient intubated and sedated. ESTIMATED BLOOD LOSS: Minimal. COMPLICATIONS: None. INDICATIONS: The patient is a 62-year-old female who was having respiratory issues, requiring intubation. She has been slightly hypertensive as well. It has been requested that a central line and arterial line be placed. PROCEDURE: The patient was prepped and draped in a sterile fashion. The right side of the neck. Timeout was performed. Using ultrasound, the right internal jugular vein was located. This was then accessed and dark nonpulsatile blood was withdrawn. The guidewire was able to be inserted through the needle and the needle was removed. A #11 blade scalpel used to make a small skin incision at the insertion point. A dilator was then advanced over the wire and removed. The triple lumen catheter was then advanced over the guidewire and the guidewire was removed. All ports were accessed and flushed without difficulty. The catheter was then secured using 3-0 silk suture. The area was then washed and dried and sterile bandage was applied. The right groin was then prepped and draped in a sterile fashion. The ultrasound was used to isolate the right femoral artery. The right femoral artery was then accessed, pulsatile bright red blood was returned through the needle. The guidewire was then inserted through the needle and the needle was removed. A #11 blade scalpel was used to make a skin incision at the insertion point and a dilator was then advanced over the wire and removed. The triple lumen catheter was then inserted. Trocar was then inserted over the wire and the wire was removed. All ports were accessed and flushed without difficulty. The catheter was secured with using 3-0 silk suture. The area was washed and dried and sterile bandage was applied. The patient tolerated the procedure well without any complications. She has chest x-ray pending. Job ID: [id number] DocumentID: [id number] Dictated Date: 05/31/2018 19:10:37 [employer] Systems Integrator Date: 06/01/2018 04:46:40 Dictated By: SABRINA HOLT DO [facility]
[2018-06-01] MEDS: inSUlin ASPART (NovoLOG) 1 UNIT/0.01 ML (CHARGE PER UNIT) SC SCH ×2 (05:14→12:20)
[2018-06-01] MEDS: PIPERACILLIN/TAZO 4.5 GM/NS 100 ML IV SCH ×4 (05:16→13:48)
--- NOTE | 2018-06-01 06:26 | Pulmonary Progress Note ---
Subjective Time Seen by a Provider: 06:38 Subjective/Events-last exam PT currently sedated on vent Sepsis Event Evaluation Height, Weight, BMI Height: 5'4.00" Weight: 289lbs. 0.0oz. 131.351137bl; 43.1 BMI Method:Stated Focused Exam Lactate Level 05/30/18 14:30: Lactic Acid Level 1.29 Exam Exam Vital Signs Date Time Temp Pulse Resp B/P (MAP) Pulse Ox O2 Delivery O2 Flow Rate FiO2 06/01/18 06:09 113 18 91 60 06/01/18 06:00 110 18 110/50 (70) 93 Mechanical Ventilator 50.00 06/01/18 05:00 118 16 99/50 (66) 93 Mechanical Ventilator 50.00 06/01/18 04:10 129 18 112/52 (72) 96 Mechanical Ventilator 50.00 06/01/18 04:09 129 18 95 50 06/01/18 04:00 128 19 111/52 (71) 96 Mechanical Ventilator 60.00 06/01/18 03:28 99.9 60.00 06/01/18 03:05 97 Mechanical Ventilator 60 06/01/18 03:00 115 18 125/52 (76) 96 Mechanical Ventilator 60.00 06/01/18 02:13 111 18 96 60 06/01/18 02:00 112 17 119/50 (73) 96 Mechanical Ventilator 60.00 06/01/18 01:00 130 06/01/18 01:00 99.8 130 17 130/55 (80) 97 Mechanical Ventilator 60.00 06/01/18 00:07 130 18 97 60 06/01/18 00:00 130 17 123/52 (75) 97 Mechanical Ventilator 60.00 05/31/18 23:15 96 Mechanical Ventilator 60 05/31/18 23:00 129 17 114/49 (70) 97 Mechanical Ventilator 60.00 05/31/18 22:00 131 32 96 60 05/31/18 22:00 130 17 140/59 (86) 97 Mechanical Ventilator 60.00 05/31/18 21:42 116 05/31/18 21:00 115 20 110/47 (68) 97 Mechanical Ventilator 60.00 05/31/18 20:00 121 20 104/43 (63) 97 Mechanical Ventilator 60.00 05/31/18 19:45 97 Mechanical Ventilator 60 12/17/18 19:33 118 19 97 60 05/31/18 19:00 100.0 118 22 100/43 (62) 98 Mechanical Ventilator 60.00 05/31/18 19:00 121 18 18:01 107 17 98 60 18 18:00 110 28 86/37 (53) 96 Mechanical Ventilator 60.00 05/31/18 17:00 116 32 108/45 (66) 95 Mechanical Ventilator 60.00 18 16:31 118 19 96 60 05/31/18 16:00 114 27 101/45 (63) 95 Mechanical Ventilator 60.00 05/31/18 16:00 94 Mechanical Ventilator 60 05/31/18 15:54 100.1 114 25 100/44 94 Mechanical Ventilator 60 05/31/18 15:50 100.1 05/31/18 15:02 114 23 91 60 05/31/18 15:00 111 21 108/44 (65) 93 Mechanical Ventilator 60.00 05/31/18 14:00 112 28 102/38 (59) 93 Mechanical Ventilator 60.00 05/31/18 13:58 99.4 110 19 97/37 92 Mechanical Ventilator 60 05/31/18 13:53 99.9 116 22 104/39 93 Mechanical Ventilator 60 05/31/18 13:31 121 23 92 60 05/31/18 13:30 100.8 121 21 105/41 93 Mechanical Ventilator 60 05/31/18 13:06 123 05/31/18 13:00 129 11 106/43 (64) 91 Mechanical Ventilator 60.00 05/31/18 12:00 91 Mechanical Ventilator 60 05/31/18 12:00 133 22 116/46 (69) 92 Mechanical Ventilator 50.00 05/31/18 11:15 131 23 100 50 05/31/18 11:00 130 18 102/42 (62) 100 Mechanical Ventilator 50.00 05/31/18 10:00 130 15 107/45 (65) 100 Mechanical Ventilator 50.00 18 09:31 130 24 100 50 05/31/18 09:30 107/47 05/31/18 09:00 129 34 109/47 (67) 93 Mechanical Ventilator 50.00 05/31/18 08:00 93 Mechanical Ventilator 50 18 08:00 128 25 115/50 (71) 94 Mechanical Ventilator 50.00 05/31/18 07:04 111 18 95 50 05/31/18 07:02 106 14 117/48 (71) 95 Mechanical Ventilator 50.00 05/31/18 07:02 107 I & O 06/01/18 07:00 Intake Total 4269 ml Output Total 1435 ml Balance 2834 ml Height & Weight Height: 5'4.00" Weight: 289lbs. 0.0oz. 131.435870zc; 43.1 BMI Method:Stated General Appearance: No Apparent Distress, WD/WN, Chronically ill, Obese, Other (intubated) Neck: Supple Respiratory: Chest Non Tender, No Accessory Muscle Use, No Respiratory Distress , Decreased Breath Sounds, Other (vent coarseness) Cardiovascular: Regular Rate, Rhythm, No Edema, No Gallop, No JVD, No Murmur, Normal Peripheral Pulses Capillary Refill: Less Than 3 Seconds Gastrointestinal: normal bowel sounds, soft Extremity: Swelling Neurologic/Psychiatric: Other (sedated) Skin: Normal Color, Warm/Dry Lymphatic: No Adenopathy Results Lab Laboratory Tests 05/30/18 12:16 05/31/18 03:15 05/31/18 12:15 05/31/18 16:58 06/01/18 03:20 Assessment/Plan Assessment/Plan Acute respiratory failure -Continue ventilator -FiO2 50% Left lung atelectasis with small -moderate amount of pleural effusion -S/p Bronchoscopy -continue zosyn - d/c vancomycin Septic shock - Tm 100.8 -Montero cultures -Currently on Levophed -Start Solucortef Afib with RVR -Amio gtt -Cardizem gtt - d/c'd secondary to Hypotension -Cardiology following Diastolic CHF grade II Hypothyroid -Continue IV Synthroid UTI with E coli -Continue Zosyn Acute on chronic renal failure -Monitor Renal failure -IVF -Monitor Hypokalemia, hypomag -replace Chronic Anemia -She is known at [facility] -repeat H&H Q12 -Check fecal occult blood test Portal HTN with ascites Chronic back pain Morbid obesity with probable VICKI Pt is not ready for ventilator weaning yet. She is also Hypotensive requiring 5mcg/hr of Levophed. Secondary to patient's renal failure and respiratory failure I am going to attempt transfer pt to [facility]. Pt is very complex with multiple issues and I am going to be out of town. Dr. Morrell also agrees with transfer. I also discussed with patient's and he wants her transferred to because she is known to doctors. Total time spent with patient, family , and medical team discussing and formulating plan of care is 120min. BRISEIDA IBRAHIM DO Jun 01, 2018 06:26
[2018-06-01] MEDS: HYDROCORTISONE 100 MG/2 ML (Solu-CORTEF) VIAL IV SCH ×2 (06:51→13:43)
[2018-06-01] MEDS ORDERED: NS IV 500 ML 500 ML IV ONE (07:00)
[2018-06-01] MEDS: PANTOPRAZOLE 40 MG (PROTONIX) VIAL IV SCH (08:20)
[2018-06-01] MEDS: LEVOTHYROXINE 100 MCG INJ (SYNTHROID) VIAL IV SCH (08:21)
[2018-06-01] MEDS: PHENAZOPYRIDINE 100 MG (PYRIDIUM) TABLET PO SCH ×2 (08:23→12:21)
[2018-06-01] MEDS: NS IV 1000 ML 1,000 ML IV SCH ×2 (08:23→10:51)
--- NOTE | 2018-06-01 08:26 | Physical Therapy Progress Note ---
Therapy Progress Note Patient is currently sedated on mechanical ventilator and may be transferred to for continued care. PT to continue to monitor patient status. YOLETTE HILARIO PT Jun 01, 2018 08:26
--- NOTE | 2018-06-01 08:52 | Diagnostic Imaging Report ---
INDICATION: Post intubation. TECHNIQUE: Single view chest at 3:51 AM. CORRELATION STUDY: 05/31/2018. FINDINGS: There are post sternotomy changes. The endotracheal tube, gastric tube, and right IJ central line remain in place. There is some redundancy with potential for kinking at the likely skin insertion site of the IJ catheter. The heart size remains enlarged. There appears to be increasing density over the heart margins and left perihilar region, most pronounced over the left lung base. The right lung also appears to be with increasing perihilar infiltrate and/or edema present. IMPRESSION: 1. Support lines and tubes are present. The possibility of some kinking at the skin insertion site of the right IJ line is not excluded. 2. There appears to be increasing areas of infiltrate and/or edema within both lung jennings, left greater than right. The vasculature overall has increased from the prior study. Dictated by: Dictated on workstation # [id number]
[2018-06-01] MEDS ORDERED: ENOXAPARIN 40 MG/0.4 ML (LOVENOX) SYR SC SCH ×2 (09:00→21:00)
--- NOTE | 2018-06-01 09:20 | Cardiology Progress Note ---
Cardiology SOAP Progress Note Subjective: Intubated/ventilated. Objective: I&O/Vital Signs 06/01/1818 06/01/18 06/01/18 02:00 02:13 03:00 03:05 Pulse 112 111 115 Resp 17 18 18 B/P (MAP) 119/50 (73) 125/52 (76) Pulse Ox 96 96 96 97 O2 Delivery Mechanical Ventilator Mechanical Ventilator Mechanical Ventilator O2 Flow Rate 60.00 60.00 FiO2 60 60 06/01/18 06/01/18 06/01/18 06/01/18 03:28 04:00 04:09 04:10 Temp 99.9 Pulse 128 129 129 Resp 19 18 18 B/P (MAP) 111/52 (71) 112/52 (72) Pulse Ox 96 95 96 O2 Delivery Mechanical Ventilator Mechanical Ventilator O2 Flow Rate 60.00 60.00 50.00 FiO2 50 06/01/18 06/01/18 06/01/18 06/01/18 05:00 06:00 06:09 07:00 Pulse 118 110 113 121 Resp 16 18 18 20 B/P (MAP) 99/50 (66) 110/50 (70) 95/43 (60) Pulse Ox 93 93 91 93 O2 Delivery Mechanical Ventilator Mechanical Ventilator Mechanical Ventilator O2 Flow Rate 50.00 50.00 50.00 FiO2 60 06/01/18 06/01/18 06/01/18 06/01/18 07:00 07:51 07:55 08:00 Temp 99.2 Pulse 112 114 113 Resp 17 16 B/P (MAP) 105/48 (67) Pulse Ox 91 91 O2 Delivery Mechanical Ventilator O2 Flow Rate 50.00 FiO2 50 06/01/18 06/01/18 06/01/18 06/01/18 09:00 10:00 10:17 10:37 Pulse 118 113 118 128 Resp 15 15 16 B/P (MAP) 122/55 (77) 125/55 (78) Pulse Ox 100 97 96 O2 Delivery Mechanical Ventilator Mechanical Ventilator O2 Flow Rate 50.00 50.00 FiO2 60 18 18 18 06/01/18 11:00 11:47 12:00 12:13 Temp 97.9 Pulse 128 128 128 Resp 22 17 16 B/P (MAP) 114/54 (74) 115/52 (73) Pulse Ox 96 9 92 O2 Delivery Mechanical Ventilator Mechanical Ventilator Mechanical Ventilator O2 Flow Rate 50.00 50.00 50.00 FiO2 50 06/01/18 06/01/18 13:26 13:30 Pulse 116 128 Resp 16 16 Pulse Ox 91 90 FiO2 60 60 06/01/18 00:00 Intake Total 2929 ml Output Total 625 ml Balance 2304 ml Weight (Pounds): 289 Weight (Ounces): 0.0 Weight (Calculated Kilograms): 131.175424 Constitutional: appears stated age; No apparent distress; well-developed, well- nourished, other (intubated and ventilated.) Respiratory: respiratory distress, chest is bilaterally symmetric, other (no respiratory sounds left lung) Cardiovascular: irregularly irregular, tachycardia, S1 and S2 Gastrointestional: No tender, No soft, No round, No distended, No pulsatile mass, No organomegaly, No guarding, No rebound, No tenderness, No hernia, No mass, No audible bowel sounds, No abnormal bowel sounds, No abdominal bruits, No spleenomegaly, No other Extremities: No normal range of motion, No non-tender, No normal inspection, No pedal edema, No calf tenderness, No normal capillary refill, No pelvis stable , No calf tenderness, No inflammation, No pedal edema, No slow capillary refill , No swelling, No other, No abrasion, No clubbing, No cyanosis, No ecchymosis, No laceration, No no lower extremity edema bilateral, No significant edema, No tenderness, No wound Neurologic/Psychiatric: other (intubated and ventilated.), power is 5/5 both on sides Skin: No normal color, No warm/dry, No cyanosis, No cool, No diaphoresis, No damp, No ecchymosis, No jaundice, No mottled, No pallor, No rash, No tattoos/ piercings, No ulcerations, No rash on exposed areas, No ulcerations on exposed areas, No other Results/Procedures: Labs Laboratory Tests 05/31/18 14:15: Blood Gas Puncture Site RFA, Blood Gas Patient Temperature 99.4, Arterial Blood pH 7.41, Arterial Blood Partial Pressure CO2 44, Arterial Blood Partial Pressure O2 92, Arterial Blood HCO3 27, Arterial Blood Total CO2 28.6, Arterial Blood Oxygen Saturation 99, Arterial Blood Base Excess 3.0H, Osvaldo Test YES-POS , Blood Gas Ventilator Setting YES, Blood Gas Inspired Oxygen 60 05/31/18 16:58: Hemoglobin 7.9L, Hematocrit 25L, Glucometer 181H 05/31/18 23:09: Glucometer 260H 06/01/18 03:20: Blood Gas Puncture Site FEMORAL ART LINE, Blood Gas Patient Temperature 99.9, Arterial Blood pH 7.47H, Arterial Blood Partial Pressure CO2 41, Arterial Blood Partial Pressure O2 163H, Arterial Blood HCO3 29H, Arterial Blood Total CO2 30.6 , Arterial Blood Oxygen Saturation 100, Arterial Blood Base Excess 5.8H, Osvaldo Test ART LINE, Blood Gas Ventilator Setting YES, Blood Gas Inspired Oxygen 60%, Hemoglobin 8.0L, Hematocrit 25L, White Blood Count 6.3, Red Blood Count 2.57L, Mean Corpuscular Volume 97, Mean Corpuscular Hemoglobin 31, Mean Corpuscular Hemoglobin Concent 32, Red Cell Distribution Width 16.2H, Platelet Count 151, Mean Platelet Volume 10.1, Neutrophils (%) (Auto) 69, Lymphocytes (%) (Auto) 17 , Monocytes (%) (Auto) 13H, Eosinophils (%) (Auto) 1, Basophils (%) (Auto) 1, Neutrophils # (Auto) 4.3, Lymphocytes # (Auto) 1.1, Monocytes # (Auto) 0.8, Eosinophils # (Auto) 0.1, Basophils # (Auto) 0.0, Sodium Level 141, Potassium Level 3.4L, Chloride Level 103, Carbon Dioxide Level 25, Anion Gap 13, Blood Urea Nitrogen 40H, Creatinine 2.22H, Estimat Glomerular Filtration Rate 23, BUN/ Creatinine Ratio 18, Glucose Level 245H, Calcium Level 8.3L, Phosphorus Level 2.7, Magnesium Level 1.6L 06/01/18 05:10: Glucometer 275H 06/01/18 11:50: Glucometer 258H 06/01/18 12:25: Lab Scanned Report Transfusion Reaction Form Microbiology 05/30/18 Blood Culture - Preliminary, Resulted No growth 05/31/18 Gram Stain - Final, Resulted 05/31/18 Bronchial Culture, Resulted Pending 05/31/18 Fungal Culture 1, Resulted Pending 05/30/18 Urine Culture - Final, Complete Escherichia coli A/P: Assessment/Dx: Status post fall, CO2 narcosis, severe respiratory distress, requiring intubation/ventilation, CAD, CABG, Hyperlipidemia, Acute on chronic diastolic congestive heart failure, Moderate to severe mitral regurgitation, Swgj-jt-ecdqtmyh pulmonary hypertension, Enlarged right ventricle, Acute on chronic kidney injury, 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 Plan: Status post fall, unclear etiology. CO2 narcosis, severe respiratory distress, requiring intubation/ventilation, Dr. Snow following. CAD, CABG, continue outpatient medications. Acute coronary syndrome has been ruled out with negative serial troponin. Atrial fibrillation with rapid ventricular rate. Atrial flutter. On amiodarone infusion. When infusion is completed. Will give beta nneka. Heart rate is much better controlled. Hyperlipidemia, rosuvastatin when she is able to tolerate by mouth. Acute on chronic diastolic congestive heart failure, mildly elevated BNP. Echocardiogram shows normal LV function with diastolic dysfunction. 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 Large left-sided pleural effusion,Likely infiltrate left lower lobe as well as large pleural effusion. Dr. Holt on board. Moderate to severe mitral regurgitation, low-dose Lasix is recommended. Nlmu-lm-xpsszcel pulmonary hypertension, continue to monitor. Mild RV enlargement on echocardiogram done 05/30/2018. Thank you for your consultation. Please call me if you have any questions. Estela Jorge MD, FACP, FACC, FSCAI, FHRS, CCDS Interventional Cardiology Cardiac Electrophysiology Vascular Medicine and Endovascular Interventions Focused Exam Lactate Level 05/30/18 14:30: Lactic Acid Level 1.29 Wei JORGE MD Jun 01, 2018 9:20 am
--- NOTE | 2018-06-01 09:20 | NUR ---
Dr. Jorge into see the patient the patient at this time. Updates given, see EMR further information.
[2018-06-01] MEDS: AMIODARONE IV SCH ×2 (11:43)
[2018-06-01] MEDS: DEXTROSE IV SCH ×2 (11:43)
--- NOTE | 2018-06-01 12:19 | NUR ---
HR sustaining ST with rates of 128, BP via art-line 116/53 MAP 79. Remains on Amio gtt at 0.5 mg/hr and Levophed gtt at 3 mcg/min. Dr. Jorge called at this time and informed. Orders received to give Lopressor 25 mg via OG now then BID.
[2018-06-01] MEDS ORDERED: meTOprolol TARTRATE 25 MG (LOPRESSOR) TABLET PO SCH (12:30)
--- NOTE | 2018-06-01 14:22 | Diagnostic Imaging Report ---
INDICATION: Respiratory distress. FINDINGS: The ET tube is in the mid thoracic trachea. The right IJ is at the SVC. The OG catheter goes beneath the diaphragms. Enlargement of the cardiac silhouette is less pronounced than on the prior exam and, while there is left greater than right central congestion and perihilar infiltrates or edema, the findings have improved in the lungs and pleura. IMPRESSION: 1. Stable support apparatus with at least slight improvements in congestion, edema, infiltrates, and pleural fluid with a slight reduction in the enlargement of the cardiac silhouette. 2. No pneumothorax or adverse interval change. Dictated by: Dictated on workstation # [id number]
[2018-06-01 14:49] LABS: ABG BASE EXCESS 4.5 MMOL/L (-2.5-2.5); ABG OXYGEN SATURATION 100 % (94-100); ABG PCO2 41 MMHG (35-45); ABG PH 7.45 (7.37-7.43); ABG PO2 203 MMHG (79-93); ABG TCO2 29.7 MMOL/L (21.0-31.0)
[2018-06-01 14:51] LABS: ALLENS TEST YES-POS; INSPIRED O2 75%; VENTILATOR YES
[2018-06-01 14:52] LABS: PATIENT TEMP 98
[2018-06-01] MEDS ORDERED: TROUGH ORDER-PHARMACY XX NR (15:00)
[2018-06-01 15:01] LABS: HEMOGLOBIN 7.9 G/DL (11.5-16.0)
--- NOTE | 2018-06-01 17:50 | NUR ---
1328- Bed assessment received from , [id number], Accepting Physician Dr. Verde. Dr. Snow did not specify if the patient should be transferred by Ground or Air. Dr. Snow called at this time, orders receive to transfer the patient by Air. The patient's SPO2 was reading 87-89%, RT called, RT gave 100% FiO2 breath, patient repositioned without significant changes. Dr. Snow notified of the patient's SPO2 sats, most recent vitals, gtt and rates, and the previously received orders for Lopressor from Dr. Jorge. Orders received to increase the PEEP to 14, CXR now, and decrease NS at 75 mls/hr, and to delay the patient's transfer until the patient has stabilized. 1339- Orders received to obtain ABG one hour after vent changes made. 1505- Most recent ABG sent to Dr. Snow with updates on the patient's vitals and vent setting. 1520- Dr. Snow called at this time. Informed of the patient's most recent ABG results, that the patient's SPO2 sat was 90-91% on BSM when ABG drawn and according to the ABG O2 saturation was 100%, most recent vitals, FiO2 was decreased to 55% by RT. Orders received to decrease the PEEP to 12, inform [facility] and that the SPO2 sat probe and O2 saturation are not correlating, okay for transfer to . 1525- [facility] informed of transportation request. 1620- [facility] staff here for transportation. 1650- The patient was transferred to via [facility] with Munoz catheter to DD, OG clamped, peripheral IV sites to right chest/shoulder area and LAC, triple lumen central line to RIJ with Fentanyl gtt infusing sent with 75 mls of Fentanyl remaining in the bag, Amio gtt infusing at 17 mls/hr, Levophed gtt infusing at 2 mcg/min, NS at 75 mls/hr, and remaining Zosyn infusing, Right femoral art-line inplace with good wave form, [facility] staff made aware that the art-line was a central line in the femoral artery and not to use the proximal or medial line, that was for hemodynamic monitoring only. Vent settings per [facility]. Family at bedside informed of the patient's room number and took personal belongings. 1705- Report given to David Dubon at
--- NOTE | 2018-06-03 12:21 | Discharge Summary-Hospitalist ---
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 (7) CO2 narcosis Status: Acute (8) Poor prognosis Status: Acute Discharge Summary Discharge Physical Exam Allergies: Coded Allergies: Dufbtsk-One-Djp Reductase Inhibitor (Verified Allergy, Intermediate, GI UPSET, N/V, 11/06/17) cefadroxil (Unverified Allergy, Mild, 01/01/17) Vitals & I&Os Vital Signs Date Time Temp Pulse Resp B/P (MAP) Pulse Ox O2 Delivery O2 Flow Rate FiO2 06/01/18 16:50 112 13 114/52 90 Mechanical Ventilator 55.00 06/01/18 15:25 55 06/01/18 14:40 98.0 General Appearance: No Apparent Distress, Other (On ventilator) Hospital Course Hospital course: Patient had a brief hospital course she was intubated shortly after admission for respiratory failure. Renal failure progressed to the point to be in need of transfer to higher level of care due to multi-system organ failure. Dr. Snow facilitated transfer and patient was is medically stable as possible before discharge. Labs (last 24 hrs) Microbiology 05/30/18 Blood Culture - Preliminary, Resulted No growth 05/31/18 Mycobacterial Culture - Preliminary, Resulted See Report 05/30/18 Urine Culture - Final, Complete Escherichia coli Patient resulted labs reviewed. Discussion & Recommendations Discharge Planning: <30 minutes discharge planning Discharge Home Medications: Active Scripts Active Lasix (Furosemide) 40 Mg Tablet 40 Mg PO DAILY Reported Magnesium (Magnesium Oxide) 400 Mg Tablet 400 Mg PO BID Rosuvastatin Calcium 40 Mg Tablet 40 Mg PO DAILY Torsemide 20 Mg Tablet 40 Mg PO DAILY Diltiazem ER (Diltiazem HCl) 180 Mg Capsule.er 180 Mg PO DAILY Potassium Chloride 20 Meq Tablet.er 20 Meq PO DAILY Folic Acid 1 Mg Tablet 1 Mg PO DAILY Ondansetron HCl 8 Mg Tablet 8 Mg PO Q8H PRN Omeprazole 40 Mg Capsule.dr 40 Mg PO BID Instructions to patient/family Please see electronic discharge instructions given to patient. Clinical Quality Measures DVT/VTE Risk/Contraindication: Risk Factor Score Per Nursin RFS Level Per Nursing on Admit: 3=High Problem Qualifiers (1) Ascites: Ascites type: other type Qualified Codes: R18.8 - Other ascites MICHELLE GARCIA DO Jun 03, 2018 12:21
--- NOTE | 2018-06-16 12:23 | Pulmonary Procedures ---
Pulmonary Procedures Date of Procedure Date of Service: May 30, 2018 Bronch Bronchoscopy with bronchoalveolar lavage (BAL), transbronchial washes. Preop DX ILD Postop DX: same Complications: none After informed consent obtained and formal time out pt was sedated using Fentanyl and Versed. Bronchoscope was advanced through the ET tube. . An anatomical tour was undertaken down to the segmental bronchi bilaterally. No endobronchial lesions noted. A bilateral bronchoalveolar lavage (BAL), transbronchial washes was obtained. Pt tolerated procedure well. No complications noted. Stat CXR is pending. BRISEIDA IBRAHIM DO Jun 16, 2018 12:23
== END 2018-06-01 16:50 | disposition short-term general hospital (02) | DRG 853 ==
LOC: EDUNIT# 00:35 → ER 00:38 → 4TH 04:03 → ICU 12:12
PROVIDERS: ADMIT Family Medicine; ATTEND Family Medicine
PROC: 0B9M8ZX Drainage of Bilateral Lungs, Via Natural or Artificial Opening Endoscopic, Diagnostic (ICD-10-PCS; principal; 2018-05-30)
PROC: 0BD38ZX Extraction of Right Main Bronchus, Via Natural or Artificial Opening Endoscopic, Diagnostic (ICD-10-PCS; 2018-05-30)
PROC: 0BD78ZX Extraction of Left Main Bronchus, Via Natural or Artificial Opening Endoscopic, Diagnostic (ICD-10-PCS; 2018-05-30)
PROC: 5A1945Z Respiratory Ventilation, 24-96 Consecutive Hours (ICD-10-PCS; 2018-05-30)
DX: A41.9 Sepsis, unspecified organism (principal); N39.0 Urinary tract infection, site not specified; J96.01 Acute respiratory failure with hypoxia; J90 Pleural effusion, not elsewhere classified; J98.11 Atelectasis; N17.9 Acute kidney failure, unspecified; I13.0 Hypertensive heart and chronic kidney disease with heart failure and stage 1 through stage 4 chronic kidney disease, or unspecified chronic kidney disease; N18.9 Chronic kidney disease, unspecified; I50.33 Acute on chronic diastolic (congestive) heart failure; K31.811 Angiodysplasia of stomach and duodenum with bleeding; K76.6 Portal hypertension; R18.8 Other ascites; E66.01 Morbid (severe) obesity due to excess calories; Z68.43 Body mass index [BMI] 50.0-59.9, adult; D50.0 Iron deficiency anemia secondary to blood loss (chronic); I25.10 Atherosclerotic heart disease of native coronary artery without angina pectoris; E78.00 Pure hypercholesterolemia, unspecified; B96.20 Unspecified Escherichia coli [E. coli] as the cause of diseases classified elsewhere; I34.0 Nonrheumatic mitral (valve) insufficiency; K75.81 Nonalcoholic steatohepatitis (NASH); E11.9 Type 2 diabetes mellitus without complications; R41.0 Disorientation, unspecified; E03.9 Hypothyroidism, unspecified; F41.9 Anxiety disorder, unspecified; K21.9 Gastro-esophageal reflux disease without esophagitis; I48.0 Paroxysmal atrial fibrillation; I27.20 Pulmonary hypertension, unspecified; W19.XXXA Unspecified fall, initial encounter; Y92.099 Unspecified place in other non-institutional residence as the place of occurrence of the external cause; Z95.1 Presence of aortocoronary bypass graft
CPT/HCPCS: 36415; 51702; 70450; 71045; 71250; 72125; 72128; 72131; 72170; 74176; 80048; 80053; 81000; 82805; 82962; 83605; 83735; 83880; 84100; 84478; 84484; 85007; 85014; 85018; 85025; 85027; 85610; 85730; 86850; 86900; 86901; 86902; 86922; 87015; 87040; 87070; 87077; 87088; 87101; 87106; 87116; 87205; 87206; 88112; 93005; 93041; 93306; 94002; 94003; 94640; 94799; 96361; 96374

== ENCOUNTER 2018-06-18 13:03 | Inpatient (IN) | payer MEDICARE, OTHER ==
[~2018-06-18] VITALS: Ht 162.6 cm; Wt 122.5 kg
--- NOTE | 2018-06-18 13:15 | NUR ---
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 YOLETTE PISANO introduced to surroundings, call light, bed controls, phone, TV, temperature control, lights, meal times, smoking policy, visitor policy, side rail policy, bathrooms and showers. Patient Rights given to patient in the handbook. YOLETTE PISANO verbalizes understanding that [facility] is not responsible for the loss or damage to any personal effects or valuables that are kept in the patients posession during their hospitalization. The following Patient Care Plans were discussed with the pt: Discharge Planning, Impaired Mobility, Self Care Deficit, Potential for fall/injury. YOLETTE PISANO verbalizes understanding of Interdisciplinary Patient Education. Patient and/or family were informed about the Rapid Response Team and its purpose. Patient received Patient Rights Booklet, which includes Privacy Act Statement and Data Collection Information Summary.
--- OUTSIDE RECORDS SUMMARY | 2018-06-18 13:26 | XMS REPORT | Clinical Summary ---
Author Author [facility] Organization [facility] Address Unknown Phone Unavailable Care Team Providers Care [employer] Plant Grinder Name Role Phone Carla Wilson MD PCP Naima Field MD Unavailable Winnie Jorge MD Unavailable Source Comments Some departments are not documenting in the electronic medical record. If you do not see the information that you expected, contact Release of Information in the Health Information Management department at [phone] for further assistance in locating additional records.[facility] Allergies Comments Active Allergy Reactions Severity Noted [...] 40 mg capsule mouth twice daily. Active ondansetron (ZOFRAN) 8 mg Take 8 mg by 0 tablet mouth every 8 hours as needed for Nausea or Vomiting. Active cetirizine (ZYRTEC) 10 mg Take 10 mg by 0 tablet mouth every morning. Active acetaminophen (TYLENOL) Take two 0 325 mg tablet tablets by 8 mouth every 6 hours as needed. Active aspirin 81 mg chewable Chew one [...] with Insulin gauge x 5/16 syrg Active clobetasol (TEMOVATE) Apply to 0 0.05 % topical cream affected area 7 twice daily as needed Active tiZANidine (ZANAFLEX) 4 Take 4 mg by 0 mg tablet mouth at bedtime daily. Active diphenhydrAMINE (BENADRYL Take 25 mg by 0 ALLERGY) 25 mg tablet mouth every 6 hours as needed for Sleep. Active pramoxine/zinc oxide Insert or 28 g 0 (TRONOLANE) 1% / 5% Apply to 8 topical cream rectal area as directed daily as needed (For Hemorrhoids). Active potassium chloride SR Take one 90 tablet 3 (K-DUR) 20 mEq tablet tablet by 8 mouth daily. Take with a meal and a full glass of water. Active nuejhqht-hyndcmqmo-K-doug Take 500 mg 0 anese 500-400-2-0.33 mg by mouth cap twice daily. Active metoprolol tartrate Take one 60 tablet 1 (LOPRESSOR) 50 mg tablet tablet by 9 mouth twice daily. This is a reduced dose from what you were taking previously Active senna/docusate Take one 0 (SENOKOT-S) 8.6/50 mg tablet by 9 tablet mouth at bedtime daily. Active simethicone (MYLICON) 80 Chew one 30 tablet 0 mg chew tablet tablet by 9 mouth every 6 hours as needed for Flatulence. Active polyethylene glycol 3350 Take one 12 each 3 (MIRALAX) 17 g packet packet by 9 mouth twice daily as needed. Active furosemide (LASIX) 80 mg Take one 90 tablet 3 tablet tablet by 9 mouth every morning. 06/02/2018 Discontinued GLUCOSAMINE Take 1 tablet 0 HCL/CHONDROITIN CALDERON by mouth (GLUCOSAMINE-CHONDROITIN twice daily. PO) 06/18/2018 Discontinued senna/docusate Take two 20 tablet 0 (SENOKOT-S) 8.6/50 mg tablets by 8 tablet mouth twice daily. 06/18/2018 Discontinued metoprolol tartrate Take 100 mg 0 (LOPRESSOR) 100 mg tablet by mouth twice daily. 06/18/2018 Discontinued diltiazem CD (CARDIZEM Take one 90 capsule 3 CD) 180 mg capsule capsule by 8 mouth daily. 06/09/2018 Discontinued torsemide(+) (DEMADEX) 20 Take two 30 tablet 3 mg tablet tablets by 8 mouth daily. 06/09/2018 Discontinued magnesium oxide (MAG-OX) Take one 180 tablet 3 400 mg (241.3 mg tablet by 8 magnesium) tablet mouth twice daily. 06/18/2018 Discontinued furosemide (LASIX) 40 mg Take 40 mg by 0 tablet mouth every morning. Active Problems Problem Noted Date Morbid obesity 06/01/2018 Acute on chronic diastolic heart failure due to coronary artery disease Chronic diastolic heart failure 03/31/2018 Long's esophagus 03/30/2018 Left leg cellulitis 03/29/2018 Pleural effusion on left 03/26/2018 Essential hypertension 02/23/2018 DELROY (acute kidney injury) 02/18/2018 CAD (coronary artery disease), [place] coronary artery 02/16/2018 Overview: 02/16/18: CABG x4 [...] left atrial appendage at time of CABG. 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 anemia 11/13/2017 Overview: Added automatically from request for surgery [id number] Resolved Problems Problem Noted Date Resolved Date Acute hypoxemic respiratory failure 06/02/2018 06/07/2018 Sepsis 06/01/2018 06/07/2018 Acute respiratory failure with hypercapnia 02/18/2018 02/23/2018 Metabolic acidosis 02/18/2018 02/21/2018 Nausea with vomiting, unspecified 02/18/2018 02/23/2018 Vasogenic shock 02/16/2018 02/21/2018 Hyperammonemia 02/16/2018 02/23/2018 Respiratory acidosis 02/16/2018 02/21/2018 Acute blood loss anemia 02/16/2018 03/29/2018 NSTEMI (non-ST elevated myocardial infarction) 02/12/2018 02/23/2018 Atrial fibrillation with rapid ventricular response 02/12/2018 06/18/2018 Encounters Care Team Description Date Type Specialty Cynthia Boyd MA,[facility] Dyspnea, unspecified type; Hepatic cirrhosis, unspecified hepatic cirrhosis type, unspecified whether ascites present (HCC); Esophageal varices without bleeding, unspecified esophageal varices type (HCC); GAVE (gastric antral vascular ectasia); Long's esophagus without dysplasia; Anemia, unspecified type 06/07/2018 Orders Only Gastroenterology Juan Jose Verde MD Chia, Jessica, MD Hall, Chase, MD Abebe, Abebe, MD Pal, Amarilis Barrett MD PAF (paroxysmal atrial fibrillation) (HCC) 06/01/2018 Hospital - Encounter 06/18/2018 06/01/2018 Hospital Radiology Encounter 06/01/2018 Hospital Radiology Encounter 05/31/2018 Hospital Radiology Encounter 05/31/2018 Hospital Radiology Encounter 05/30/2018 Hospital Radiology Encounter 05/30/2018 Hospital Radiology Encounter 05/30/2018 Hospital Radiology Encounter 05/30/2018 Hospital Radiology Encounter 05/30/2018 Hospital Radiology Encounter 05/30/2018 Hospital Radiology Encounter 05/30/2018 Hospital Radiology Encounter 05/30/2018 Hospital Radiology Encounter 05/30/2018 Hospital Radiology Encounter 05/28/2018 Hospital Radiology Encounter Antolin Erazo Care Coordination (Hepatology Appt Question) 05/14/2018 Telephone Gastroenterology Lynette Diana MD 05/04/2018 Documentation Transplant Surgery Dannielle Covington MD Results (Chest X-ray) 05/03/2018 Telephone Gastroenterology Unknown, Madina, MD Referral 04/30/2018 Telephone Transplant Surgery Dannielle Covington [...] MD 04/08/2018 Anesthesia Cardiology Event Sole Diaz, EDUCE 04/07/2018 Anesthesia Event Skinny Marshall MD COLONOSCOPY 04/07/2018 Surgery Grace Alberts CRNA 03/29/2018 Anesthesia Event Dannielle Covington MD ESOPHAGOGASTRODUODENOSCOPY [...] (Primary Dx) 03/24/2018 Office Visit Cardiothoracic Surgery from Last 3 Months Immunizations [...] Vital Signs Time Taken Vital Sign Reading 06/18/2018 8:24 AM STEEL RULE DIE MAKER APPRENTICE Blood Pressure 146/75 06/18/2018 8:24 AM STEEL RULE DIE MAKER APPRENTICE Pulse 88 06/18/2018 8:24 AM STEEL RULE DIE MAKER APPRENTICE Temperature 36.7 C (98 F) 04/28/2018 3:22 PM STEEL RULE DIE MAKER APPRENTICE Respiratory Rate 16 06/18/2018 8:24 AM STEEL RULE DIE MAKER APPRENTICE Oxygen Saturation 95% - Inhaled Oxygen - Concentration 06/18/2018 5:00 AM STEEL RULE DIE MAKER APPRENTICE Weight 120 kg (264 lb 8.8 oz) 06/02/2018 9:42 AM STEEL RULE DIE MAKER APPRENTICE Height 162.6 cm (5' 4") 06/18/2018 5:00 AM STEEL RULE DIE MAKER APPRENTICE Body Mass Index 45.41 Plan of Treatment Health Maintenance Due Date Last Done Comments PHYSICAL (COMPREHENSIVE) 1964 EXAM DILATED EYE EXAM 1975 DTAP/TDAP VACCINES (1 - 1975 Tdap) FOOT EXAM 1975 MICROALBUMIN 1975 PNEUMONIA VACCINE (DM) 1975 CERVICAL CANCER SCREENING 1987 BREAST CANCER SCREENING 1997 SHINGLES RECOMBINANT 2007 VACCINE (1 of 2) INFLUENZA VACCINE 01/13/2018 03/15/2017 (Previously completed), 04/09/2000, 03/27/1999, Additional history exists HBA1C 08/12/2018 02/12/2018 COLORECTAL CANCER 04/07/2028 04/07/2018 SCREENING HEPATITIS C SCREENING Completed 02/15/2018 HIV SCREENING Completed 04/29/2018 Implants Device Identifier Shelf Expiration Date Model / Serial / Lot Implanted Type Area Manufactur er [id number] / [id number] / [id number] Plate Acutie Sternal Closure - N/A: Sternum ACUTE [id number] [employer]OVATION Implanted: Qty: 2 on 02/16/2018 by Lance Conte MD [id number] / [id number] / [id number] Plate Acutie Sternal Closure - N/A: Sternum ACUTE [id number] [employer]OVATION Implanted: Qty: 1 on 02/16/2018 by Lance Conte MD Procedures Comments Procedure Name Priority Date/Time Associated Diagnosis POC GLUCOSE 06/18/2018 7:26 AM STEEL RULE DIE MAKER APPRENTICE MAGNESIUM Routine 06/18/2018 6:08 AM STEEL RULE DIE MAKER APPRENTICE BASIC METABOLIC PANEL Routine 06/18/2018 6:08 AM STEEL RU[employer] DIE MAKER APPRENTICE POC GLUCOSE 06/18/2018 4:17 AM STEEL RU[employer] DIE MAKER APPRENTICE POC GLUCOSE 06/18/2018 3:09 AM STEEL RU[employer] DIE MAKER APPRENTICE POC GLUCOSE 06/17/2018 8:24 PM STEEL RULE DIE MAKER APPRENTICE POC GLUCOSE 06/17/2018 6:14 PM STEEL RU[employer] DIE MAKER APPRENTICE POC GLUCOSE 06/17/2018 1:08 PM STEEL [employer] DIE MAKER APPRENTICE CBC Routine 06/17/2018 10:03 AM STEEL RULE DIE MAKER APPRENTICE POC GLUCOSE 06/17/2018 7:39 AM STEEL RU[employer] DIE MAKER APPRENTICE MAGNESIUM Routine 06/17/2018 5:48 AM STEEL RU[employer] DIE MAKER APPRENTICE BASIC METABOLIC PANEL Routine 06/17/2018 5:48 AM STEEL RU[employer] DIE MAKER APPRENTICE CBC Routine 06/17/2018 5:48 AM STEEL RULE DIE MAKER APPRENTICE POC GLUCOSE 06/17/2018 3:19 AM STEEL RU[employer] DIE MAKER APPRENTICE POC GLUCOSE 06/16/2018 10:17 PM STEEL RU[employer] DIE MAKER APPRENTICE POC GLUCOSE 06/16/2018 5:44 PM STEEL RU[employer] DIE MAKER APPRENTICE POC GLUCOSE 06/16/2018 2:46 PM STEEL RULE DIE MAKER APPRENTICE POC GLUCOSE 06/16/2018 8:55 AM STEEL RU[employer] DIE MAKER APPRENTICE MAGNESIUM Routine 06/16/2018 6:39 AM STE[employer] DIE MAKER APPRENTICE BASIC METABOLIC PANEL Routine 06/16/2018 6:39 AM STEEL [employer] DIE MAKER APPRENTICE CBC Routine 06/16/2018 6:39 AM STEEL RULE DIE MAKER APPRENTICE POC GLUCOSE 06/15/2018 8:28 PM STEEL RU[employer] DIE MAKER APPRENTICE POC GLUCOSE 06/15/2018 6:03 PM STEEL RULE DIE MAKER APPRENTICE POC GLUCOSE 06/15/2018 11:59 AM STE[employer] RU[employer] DIE MAKER APPRENTICE POC GLUCOSE 06/15/2018 8:25 AM STEEL RU[employer] DIE MAKER APPRENTICE MAGNESIUM Routine 06/15/2018 6:05 AM STE[employer] DIE MAKER APPRENTICE BASIC METABOLIC PANEL Routine 06/15/2018 6:05 AM STE[employer] DIE MAKER APPRENTICE CBC Routine 06/15/2018 6:05 AM STEEL RULE DIE MAKER APPRENTICE POC GLUCOSE 06/15/2018 3:31 AM STEEL RULE DIE MAKER APPRENTICE POC GLUCOSE 06/14/2018 9:42 PM STEEL RULE DIE MAKER APPRENTICE POC GLUCOSE 06/14/2018 8:11 PM STEEL RULE DIE MAKER APPRENTICE POC GLUCOSE 06/14/2018 5:50 PM STEEL RU[employer] DIE MAKER APPRENTICE POC GLUCOSE 06/14/2018 2:08 PM STEEL RU[employer] DIE MAKER APPRENTICE CHEM 7 ADD ON Add on 06/14/2018 7:49 AM STE[employer] RU[employer] DIE MAKER APPRENTICE MAGNESIUM Routine 06/14/2018 7:49 AM STEEL RULE DIE MAKER APPRENTICE BASIC METABOLIC PANEL Routine 06/14/2018 7:49 AM STEEL RULE DIE MAKER APPRENTICE CBC Routine 06/14/2018 7:49 AM STEEL RULE DIE MAKER APPRENTICE POC GLUCOSE 06/14/2018 7:48 AM STEEL RULE DIE MAKER APPRENTICE POC GLUCOSE 06/14/2018 3:33 AM STEEL RULE DIE MAKER APPRENTICE POC GLUCOSE 06/13/2018 8:21 PM STEEL RU[employer] DIE MAKER APPRENTICE ECG 12-LEAD STAT 06/13/2018 6:54 PM STEEL RULE DIE MAKER APPRENTICE POC GLUCOSE 06/13/2018 4:35 PM STEEL RULE DIE MAKER APPRENTICE POC GLUCOSE 06/13/2018 11:42 AM STEEL RU[employer] DIE MAKER APPRENTICE BASIC METABOLIC PANEL Routine 06/13/2018 11:40 AM STEEL RU[employer] DIE MAKER APPRENTICE CBC Routine 06/13/2018 11:40 AM STEEL RULE DIE MAKER APPRENTICE MAGNESIUM Routine 06/13/2018 11:40 AM STEEL RULE DIE MAKER APPRENTICE POC GLUCOSE 06/13/2018 8:48 AM STEEL RULE DIE MAKER APPRENTICE POC GLUCOSE 06/13/2018 3:48 AM STEEL RULE DIE MAKER APPRENTICE POC GLUCOSE 06/12/2018 9:13 PM STEEL RULE DIE MAKER APPRENTICE POC GLUCOSE 06/12/2018 6:21 PM STEEL RULE DIE MAKER APPRENTICE POC GLUCOSE 06/12/2018 11:44 AM STEEL RULE DIE MAKER APPRENTICE POC GLUCOSE 06/12/2018 8:25 AM STEEL RULE DIE MAKER APPRENTICE MAGNESIUM Routine 06/12/2018 6:52 AM STEEL RULE DIE MAKER APPRENTICE BASIC METABOLIC PANEL Routine 06/12/2018 6:52 AM STEEL RULE DIE MAKER APPRENTICE CBC Routine 06/12/2018 6:52 AM STEEL RULE DIE MAKER APPRENTICE POC GLUCOSE 06/12/2018 3:36 AM STEEL RULE DIE MAKER APPRENTICE POC GLUCOSE 06/11/2018 9:46 PM STEEL RULE DIE MAKER APPRENTICE POC GLUCOSE 06/11/2018 5:43 PM STEEL RU[employer] DIE MAKER APPRENTICE POC GLUCOSE 06/11/2018 11:48 AM STEEL RULE DIE MAKER APPRENTICE POC GLUCOSE 06/11/2018 9:15 AM STE[employer] RU[employer] DIE MAKER APPRENTICE MAGNESIUM Routine 06/11/2018 5:17 AM STEEL RU[employer] DIE MAKER APPRENTICE BASIC METABOLIC PANEL Routine 06/11/2018 5:17 AM STEEL RU[employer] DIE MAKER APPRENTICE CBC Routine 06/11/2018 5:17 AM STEEL RULE DIE MAKER APPRENTICE TROPONIN-I Routine 06/10/2018 10:20 PM STEEL [employer] DIE MAKER APPRENTICE ECG 12-LEAD Routine 06/10/2018 10:05 PM STE[employer] RU[employer] DIE MAKER APPRENTICE POC GLUCOSE 06/10/2018 8:40 PM STEEL RULE DIE MAKER APPRENTICE POC GLUCOSE 06/10/2018 5:19 PM STEEL RULE DIE MAKER APPRENTICE POC GLUCOSE 06/10/2018 11:58 AM STEEL RULE DIE MAKER APPRENTICE POC GLUCOSE 06/10/2018 7:31 AM STEEL RU[employer] DIE MAKER APPRENTICE MAGNESIUM Routine 06/10/2018 6:04 AM STEEL RULE DIE MAKER APPRENTICE BASIC METABOLIC PANEL Routine 06/10/2018 6:04 AM STEEL RULE DIE MAKER APPRENTICE CBC Routine 06/10/2018 6:04 AM STEEL RULE DIE MAKER APPRENTICE POC GLUCOSE 06/09/2018 9:57 PM STEEL RULE DIE MAKER APPRENTICE POC GLUCOSE 06/09/2018 5:30 PM STEEL RULE DIE MAKER APPRENTICE POC GLUCOSE 06/09/2018 1:25 PM STEEL RULE DIE MAKER APPRENTICE POC GLUCOSE 06/09/2018 8:56 AM STEEL RULE DIE MAKER APPRENTICE CBC Routine 06/09/2018 8:04 AM STEEL RULE DIE MAKER APPRENTICE BASIC METABOLIC PANEL Add on 06/09/2018 8:00 AM STEEL RU[employer] DIE MAKER APPRENTICE MAGNESIUM Routine 06/09/2018 8:00 AM STEEL RULE DIE MAKER APPRENTICE POC GLUCOSE 06/08/2018 9:14 PM STEEL RULE DIE MAKER APPRENTICE POC GLUCOSE 06/08/2018 6:17 PM STEEL RULE DIE MAKER APPRENTICE POC GLUCOSE 06/08/2018 12:40 PM STEEL RULE DIE MAKER APPRENTICE POC GLUCOSE 06/08/2018 8:08 AM STEEL RULE DIE MAKER APPRENTICE ECG 12-LEAD STAT 06/08/2018 4:59 AM STEEL RULE DIE MAKER APPRENTICE TROPONIN-I Add on 06/08/2018 4:45 AM STEEL RULE DIE MAKER APPRENTICE BASIC METABOLIC PANEL Routine 06/08/2018 4:45 AM STEEL RULE DIE MAKER APPRENTICE HEMOGLOBIN Routine 06/08/2018 4:45 AM STEEL RULE DIE MAKER APPRENTICE POC GLUCOSE 06/08/2018 3:15 AM STEEL RULE DIE MAKER APPRENTICE POC GLUCOSE 06/07/2018 8:45 PM STEEL RULE DIE MAKER APPRENTICE POC GLUCOSE 06/07/2018 5:52 PM STEEL RULE DIE MAKER APPRENTICE TRANSFUSE RBC'S Routine 06/07/2018 NON-BLEEDING PT 5:33 PM STEEL RULE DIE MAKER APPRENTICE POC GLUCOSE 06/07/2018 2:04 PM STEEL RULE DIE MAKER APPRENTICE TYPE & CROSSMATCH Routine 06/07/2018 11:38 AM STEEL RULE DIE MAKER APPRENTICE CONSULT IV THERAPY TEAM Routine 06/07/2018 8:22 AM STEEL RULE DIE MAKER APPRENTICE POC GLUCOSE 06/07/2018 7:52 AM STEEL RULE DIE MAKER APPRENTICE CBC AND DIFF STAT 06/07/2018 3:24 AM STEEL RULE DIE MAKER APPRENTICE COMPREHENSIVE METABOLIC STAT 06/07/2018 PANEL 3:24 AM STEEL RULE DIE MAKER APPRENTICE MAGNESIUM STAT 06/07/2018 3:24 AM STEEL RU[employer] DIE MAKER APPRENTICE PHOSPHORUS STAT 06/07/2018 3:24 AM STEEL RULE DIE MAKER APPRENTICE POC GLUCOSE 06/07/2018 3:10 AM STEEL RULE DIE MAKER APPRENTICE POC GLUCOSE 06/06/2018 9:11 PM STEEL RULE DIE MAKER APPRENTICE MAGNESIUM Routine 06/06/2018 5:00 PM STE[employer] RULE DIE MAKER APPRENTICE BASIC METABOLIC PANEL Routine 06/06/2018 5:00 PM STEEL RULE DIE MAKER APPRENTICE POC GLUCOSE 06/06/2018 4:34 PM STE[employer] RU[employer] DIE MAKER APPRENTICE CONSULT IV THERAPY TEAM Routine 06/06/2018 12:33 PM STEEL RULE DIE MAKER APPRENTICE POC GLUCOSE 06/06/2018 7:44 AM STEEL RULE DIE MAKER APPRENTICE CBC AND DIFF STAT 06/06/2018 6:20 AM STEEL RULE DIE MAKER APPRENTICE COMPREHENSIVE METABOLIC STAT 06/06/2018 PANEL 6:20 AM STEEL RULE DIE MAKER APPRENTICE MAGNESIUM STAT 06/06/2018 6:20 AM STEEL RULE DIE MAKER APPRENTICE PHOSPHORUS STAT 06/06/2018 6:20 AM STEEL RULE DIE MAKER APPRENTICE PROTIME INR (PT) Routine 06/06/2018 6:20 AM STEEL RULE DIE MAKER APPRENTICE POC GLUCOSE 06/06/2018 3:15 AM STEEL RULE DIE MAKER APPRENTICE POC GLUCOSE 06/05/2018 9:13 PM STEEL RULE DIE MAKER APPRENTICE POC GLUCOSE 06/05/2018 6:31 PM STE[employer] RU[employer] DIE MAKER APPRENTICE POC GLUCOSE 06/05/2018 1:13 PM STEEL RULE DIE MAKER APPRENTICE POC GLUCOSE 06/05/2018 7:51 AM STEEL RULE DIE MAKER APPRENTICE CBC AND DIFF STAT 06/05/2018 3:43 AM STEEL RU[employer] DIE MAKER APPRENTICE COMPREHENSIVE METABOLIC STAT 06/05/2018 PANEL 3:43 AM STEEL RU[employer] DIE MAKER APPRENTICE MAGNESIUM STAT 06/05/2018 3:43 AM STEEL RU[employer] DIE MAKER APPRENTICE PHOSPHORUS STAT 06/05/2018 3:43 AM STEEL RULE DIE MAKER APPRENTICE PROTIME INR (PT) Routine 06/05/2018 3:43 AM STEEL RULE DIE MAKER APPRENTICE BLOOD GASES, CENTRAL Routine 06/04/2018 VENOUS 11:26 PM STEEL RULE DIE MAKER APPRENTICE POC GLUCOSE 06/04/2018 11:19 PM STE[employer] RU[employer] DIE MAKER APPRENTICE POC GLUCOSE 06/04/2018 9:49 PM STE[employer] RU[employer] D[employer] MAKER APPRENTICE POC GLUCOSE 06/04/2018 4:37 PM STE[employer] MAKER APPRENTICE CONSULT IV THERAPY TEAM Routine 06/04/2018 11:17 AM STE[employer] D[employer] MAKER APPRENTICE VANCOMYCIN TROUGH 06/04/2018 11:15 AM STEEL RULE DIE MAKER APPRENTICE POC GLUCOSE 06/04/2018 11:03 AM STE[employer] RULE DIE MAKER APPRENTICE POC GLUCOSE 06/04/2018 6:38 AM STE[employer] RU[employer] DIE MAKER APPRENTICE CBC AND DIFF STAT 06/04/2018 3:41 AM STE[employer] RU[employer] DIE MAKER APPRENTICE COMPREHENSIVE METABOLIC STAT 06/04/2018 PANEL 3:41 AM STE[employer] RU[employer] DIE MAKER APPRENTICE MAGNESIUM STAT 06/04/2018 3:41 AM STE[employer] RU[employer] DIE MAKER APPRENTICE PHOSPHORUS STAT 06/04/2018 3:41 AM STE[employer] RULE DIE MAKER APPRENTICE PROTIME INR (PT) Routine 06/04/2018 3:41 AM STE[employer] RULE DIE MAKER APPRENTICE POC GLUCOSE 06/03/2018 8:58 PM STE[employer] D[employer] MAKER APPRENTICE POC GLUCOSE 06/03/2018 6:22 PM STE[employer] RU[employer] DIE MAKER APPRENTICE POC GLUCOSE 06/03/2018 11:53 AM STE[employer] D[employer] MAKER APPRENTICE ECG 12-LEAD Routine 06/03/2018 9:28 AM STE[employer] RU[employer] D[employer] MAKER APPRENTICE POC GLUCOSE 06/03/2018 8:50 AM STE[employer] MAKER APPRENTICE VANCOMYCIN TIMED LEVEL Routine 06/03/2018 3:48 AM STEEL RULE DIE MAKER APPRENTICE CBC AND DIFF STAT 06/03/2018 3:48 AM STE[employer] RU[employer] DIE MAKER APPRENTICE COMPREHENSIVE METABOLIC STAT 06/03/2018 PANEL 3:48 AM STEEL RU[employer] DIE MAKER APPRENTICE MAGNESIUM STAT 06/03/2018 3:48 AM STE[employer] RU[employer] DIE MAKER APPRENTICE PHOSPHORUS STAT 06/03/2018 3:48 AM STE[employer] RULE DIE MAKER APPRENTICE PROTIME INR (PT) Routine 06/03/2018 3:48 AM STEEL RULE DIE MAKER APPRENTICE POC GLUCOSE 06/02/2018 9:37 PM STEEL RULE DIE MAKER APPRENTICE POC GLUCOSE 06/02/2018 5:53 PM STE[employer] RU[employer] DIE MAKER APPRENTICE ABDOMEN AP ONLY Routine 06/02/2018 5:17 PM STE[employer] RU[employer] DIE MAKER APPRENTICE BLOOD GASES, ARTERIAL Routine 06/02/2018 2:57 PM STEEL RULE DIE MAKER APPRENTICE CULTURE-URINE STAT 06/02/2018 W/SENSITIVITY 2:23 PM STEEL RU[employer] DIE MAKER APPRENTICE AMMONIA STAT 06/02/2018 2:20 PM STEEL RULE DIE MAKER APPRENTICE POC GLUCOSE 06/02/2018 12:48 PM STEEL RULE DIE MAKER APPRENTICE 2-D + DOPPLER SUNG 06/02/2018 ECHOCARDIOGRAM 9:41 AM STEEL RULE DIE MAKER APPRENTICE POC GLUCOSE 06/02/2018 8:02 AM STEEL RULE DIE MAKER APPRENTICE POC GLUCOSE 06/02/2018 3:48 AM STEEL RULE DIE MAKER APPRENTICE TROPONIN-I Add on 06/02/2018 3:40 AM STEEL RULE DIE MAKER APPRENTICE PHOSPHORUS STAT 06/02/2018 3:40 AM STEEL RULE DIE MAKER APPRENTICE MAGNESIUM STAT 06/02/2018 3:40 AM STEEL RULE DIE MAKER APPRENTICE BLOOD GASES, ARTERIAL STAT 06/02/2018 3:40 AM STEEL RULE DIE MAKER APPRENTICE COMPREHENSIVE METABOLIC STAT 06/02/2018 PANEL 3:40 AM STEEL RULE DIE MAKER APPRENTICE PROTIME INR (PT) Routine 06/02/2018 3:40 AM STEEL RULE DIE MAKER APPRENTICE CBC AND DIFF STAT 06/02/2018 3:40 AM STEEL RULE DIE MAKER APPRENTICE BLOOD GASES, ARTERIAL STAT 06/01/2018 11:00 PM STEEL RULE DIE MAKER APPRENTICE UREA NITROGEN-URINE Add on 06/01/2018 RANDOM 10:10 PM STEEL RU[employer]IE MAKER APPRENTICE STREPTOCOCCUS PNEUMO AG, Add on 06/01/2018 URINE 10:10 PM STEEL RULE D[employer] MAKER APPRENTICE LEGIONELLA ANTIGEN Add on 06/01/2018 URINE,RAN 10:10 PM STEEL RULE DIE MAKER APPRENTICE URINALYSIS, MICROSCOPIC Routine 06/01/2018 10:10 PM STEEL RULE DIE MAKER APPRENTICE URINALYSIS DIPSTICK Routine 06/01/2018 10:10 PM STEEL RULE DIE MAKER APPRENTICE CREATININE-URINE RANDOM Routine 06/01/2018 10:10 PM STEEL [employer] D[employer] MAKER APPRENTICE SODIUM-URINE RANDOM Routine 06/01/2018 10:10 PM STEEL RULE DIE MAKER APPRENTICE VANCOMYCIN TIMED LEVEL STAT 06/01/2018 10:00 PM STEEL RULE D[employer] MAKER APPRENTICE FREE T4 (FREE THYROXINE) Routine 06/01/2018 ONLY 10:00 PM STEEL RU[employer] DIE MAKER APPRENTICE THYROID STIMULATING Routine 06/01/2018 HORMONE-TSH 10:00 PM STEEL RULE DIE MAKER APPRENTICE POC GLUCOSE 06/01/2018 8:58 PM STE[employer] RU[employer] DIE MAKER APPRENTICE GRAM STAIN 06/01/2018 8:33 PM STEEL RU[employer] DIE MAKER APPRENTICE CULTURE-RESP,LOWER Specimen 06/01/2018 W/SENSITIVITY in Lab 8:33 PM STEEL RU[employer] D[employer] MAKER APPRENTICE BLOOD GASES, ARTERIAL Routine 06/01/2018 8:00 PM STE[employer] D[employer] MAKER APPRENTICE O2 SATURATION, CENTRAL Routine 06/01/2018 VENOUS 7:00 PM STE[employer] DIE MAKER APPRENTICE CHEST SINGLE VIEW STAT 06/01/2018 6:52 PM STEEL RULE DIE MAKER APPRENTICE CULTURE-BLOOD STAT 06/01/2018 W/SENSITIVITY 6:47 PM STEEL RU[employer] DIE MAKER APPRENTICE POC GLUCOSE 06/01/2018 6:44 PM STE[employer] RU[employer] DIE MAKER APPRENTICE CULTURE-BLOOD STAT 06/01/2018 W/SENSITIVITY 6:41 PM STE[employer] RU[employer] D[employer] MAKER APPRENTICE BLOOD BANK SAMPLE HOLD 06/01/2018 6:35 PM STE[employer] RU[employer] DIE MAKER APPRENTICE LACTIC ACID (BG - RAPID STAT 06/01/2018 LACTATE) 6:35 PM STE[employer] D[employer] MAKER APPRENTICE BLOOD GASES, ARTERIAL Routine 06/01/2018 6:35 PM STEEL [employer] D[employer] MAKER APPRENTICE TSH WITH FREE T4 REFLEX Specimen 06/01/2018 in Lab 6:31 PM STE[employer] MAKER APPRENTICE TROPONIN-I Routine 06/01/2018 6:31 PM STEEL [employer] D[employer] MAKER APPRENTICE BNP (B-TYPE NATRIURETIC Routine 06/01/2018 PEPTI) 6:31 PM STE[employer] MAKER APPRENTICE PROCALCITONIN Routine 06/01/2018 6:31 PM STEEL [employer] D[employer] MAKER APPRENTICE PHOSPHORUS Routine 06/01/2018 6:31 PM STEEL [employer] D[employer] MAKER APPRENTICE MAGNESIUM Routine 06/01/2018 6:31 PM STE[employer] D[employer] MAKER APPRENTICE COMPREHENSIVE METABOLIC Routine 06/01/2018 PANEL 6:31 PM STE[employer] D[employer] MAKER APPRENTICE CBC AND DIFF Routine 06/01/2018 6:31 PM STE[employer] D[employer] MAK[employer] APPRENTICE GENERAL RAD CHEST Routine 06/01/2018 Diagnosis unknown EXTERNAL IMAGING 12:15 AM [employer] APPRENTICE GENERAL RAD CHEST Routine 06/01/2018 Diagnosis unknown EXTERNAL IMAGING 12:00 AM [employer] APPRENTICE ECG-SCAN 06/01/2018 12:00 AM [employer] APPRENTICE ECG-SCAN 06/01/2018 12:00 AM [employer] APPRENTICE ECG-SCAN 06/01/2018 12:00 AM [employer] APPRENTICE GENERAL RAD CHEST Routine 05/31/2018 Diagnosis unknown EXTERNAL IMAGING 12:15 AM [employer] APPRENTICE GENERAL RAD CHEST Routine 05/31/2018 Diagnosis unknown EXTERNAL IMAGING 12:00 AM [employer] APPRENTICE ECG-SCAN 05/31/2018 12:00 AM [employer] APPRENTICE GENERAL RAD CHEST Routine 05/30/2018 Diagnosis unknown EXTERNAL IMAGING 2:00 AM [employer] APPRENTICE CT HEAD EXTERNAL IMAGING Routine 05/30/2018 Diagnosis unknown 1:45 AM [employer] APPRENTICE CT L-SPINE EXTERNAL Routine 05/30/2018 Diagnosis unknown IMAGING 1:30 AM [employer] APPRENTICE GENERAL RAD PELVIS Routine 05/30/2018 Diagnosis unknown EXTERNAL IMAGING 1:15 AM [employer] APPRENTICE CT CHEST/ABD/PEL EXTERNAL Routine 05/30/2018 Diagnosis unknown IMAGING 1:00 AM [employer] APPRENTICE GENERAL RAD CHEST Routine 05/30/2018 Diagnosis unknown EXTERNAL IMAGING 12:45 AM [employer] APPRENTICE GENERAL RAD CHEST Routine 05/30/2018 Diagnosis unknown EXTERNAL IMAGING 12:30 AM [employer] APPRENTICE CT HEAD EXTERNAL IMAGING Routine 05/30/2018 Diagnosis unknown 12:15 AM [employer] APPRENTICE CT HEAD EXTERNAL IMAGING Routine 05/30/2018 Diagnosis unknown 12:00 AM [employer] APPRENTICE ECG-SCAN 05/30/2018 12:00 AM [employer] APPRENTICE US ABDOMEN EXTERNAL Routine 05/28/2018 Diagnosis unknown IMAGING 12:00 AM [employer] APPRENTICE CERULOPLASMIN Routine 04/29/2018 Dyspnea, unspecified type Hepatic cirrhosis, unspecified hepatic cirrhosis type, unspecified whether ascites present (HCC) Esophageal varices without bleeding, unspecified esophageal varices type (HCC) GAVE (gastric antral vascular ectasia) Long's esophagus without dysplasia Anemia, unspecified type ANTI-MITOCHONDRIAL Routine 04/29/2018 Dyspnea, unspecified type ANTIBODY Hepatic cirrhosis, unspecified hepatic cirrhosis type, unspecified whether ascites present (HCC) Esophageal varices without bleeding, unspecified esophageal varices type (HCC) GAVE (gastric antral vascular ectasia) Long's esophagus without dysplasia Anemia, unspecified type ANTI-SMOOTH MUSCLE AB Routine 04/29/2018 Dyspnea, unspecified type Hepatic cirrhosis, unspecified hepatic cirrhosis type, unspecified whether ascites present (HCC) Esophageal varices without bleeding, unspecified esophageal varices type (HCC) GAVE (gastric antral vascular ectasia) Long's esophagus without dysplasia Anemia, unspecified type IGG SUBCLASSES Routine 04/29/2018 Dyspnea, unspecified type Hepatic cirrhosis, unspecified hepatic cirrhosis type, unspecified whether ascites present (HCC) Esophageal varices without bleeding, unspecified esophageal varices type (HCC) GAVE (gastric antral vascular ectasia) Long's esophagus without dysplasia Anemia, unspecified type HIV-1/2 ANTIGEN/ANTIBODY Routine 04/29/2018 Dyspnea, unspecified type SCREEN Hepatic cirrhosis, unspecified hepatic cirrhosis type, unspecified whether ascites present (HCC) Esophageal varices without bleeding, unspecified esophageal varices type (HCC) GAVE (gastric antral vascular ectasia) Long's esophagus without dysplasia Anemia, unspecified type ANTI-NUCLEAR Routine 04/29/2018 Dyspnea, unspecified type ANTIBODY(IVON) Hepatic cirrhosis, unspecified hepatic cirrhosis type, unspecified whether ascites present (HCC) Esophageal varices without bleeding, unspecified esophageal varices type (HCC) GAVE (gastric antral vascular ectasia) Long's esophagus without dysplasia Anemia, unspecified type HEPATITIS A IGG Routine 04/29/2018 Dyspnea, unspecified type Hepatic cirrhosis, unspecified hepatic cirrhosis type, unspecified whether ascites present (HCC) Esophageal varices without bleeding, unspecified esophageal varices type (HCC) GAVE (gastric antral vascular ectasia) Long's esophagus without dysplasia Anemia, unspecified type CHEST 2 VIEWS STAT 04/28/2018 Dyspnea, unspecified type 5:31 PM [employer] APPRENTICE ECG-SCAN 04/24/2018 5:40 PM [employer] APPRENTICE TELEMETRY STRIPS-SCAN 04/16/2018 12:49 PM CDT ECG-SCAN [...] PM CDT ECG-SCAN 03/25/2018 2:30 PM CDT from Last 3 Months Results * POC GLUCOSE (06/18/2018 7:26 AM STE[employer] MAK[employer] APPRENTICE) Only the most recent of 136 results within the time period is included. Glucose, POC 118 (H) 70 - 100 MG/DL [facility] Performing Organization Address [facility] Phone Number [facility] [address] [place] [address] * MAGNESIUM (06/18/2018 6:08 AM STE[employer] MAK[employer] APPRENTICE) Only the most recent of 28 results within the time period is included. Magnesium 2.0 1.6 - 2.6 mg/dL [facility] Specimen Blood Performing Organization Address City/[facility] Services[facility] Phone Number [facility] [address] [place] [address] * BASIC METABOLIC PANEL (06/18/2018 6:08 AM [employer] MAK[employer] APPRENTICE) Only the most recent of 21 results within the time period is included. Sodium 140 137 - 147 MMOL/L [facility] Potassium 3.7 3.5 - 5.1 MMOL/L [facility] Chloride 96 (L) 98 - 110 MMOL/L [facility] CO2 39 (H) 21 - 30 MMOL/L [facility] Anion Gap 5 3 - 12 [facility] Glucose 132 (H) 70 - 100 MG/DL [facility] Blood Urea Nitrogen 17 7 - 25 MG/DL [facility] Creatinine 1.22 (H) 0.4 - 1.00 MG/DL [facility] Calcium 9.3 8.5 - 10.6 MG/DL [facility] eGFR Non 45 (L) >60 mL/min [facility] Comment: The eGFR is not validated for use in drug dosing adjustments.Continue to use estimated creatinine clearance per dosing reference text.Please contact the Clinical Pharmacist for questions. eGFR 54 (L) >60 mL/min [facility] Comment: The eGFR is not validated for use in drug dosing adjustments.Continue to use estimated creatinine clearance per dosing reference text.Please contact the Clinical Pharmacist for questions. Specimen Blood Performing Organization Address City/[facility]/Zipcode Phone Number [facility] [address] [place] [address] * CBC (06/17/2018 10:03 AM [employer] MAK[employer] APPRENTICE) Only the most recent of 19 results within the time period is included. White Blood Cells 3.7 (L) 4.5 - 11.0 K/UL [facility] RBC 2.75 (L) 4.0 - 5.0 M/UL [facility] Hemoglobin 8.5 (L) 12.0 - 15.0 GM/DL [facility] Hematocrit 26.6 (L) 36 - 45 % [facility] MCV 96.8 80 - 100 FL [facility] MCH 31.0 26 - 34 PG [facility] MCHC 32.1 32.0 - 36.0 G/DL [facility] RDW 16.9 (H) 11 - 15 % [facility] Platelet Count 114 (L) 150 - 400 K/UL [facility] MPV 8.6 7 - 11 FL [facility] Specimen Blood Performing Organization Address [facility] Servicescode Phone Number [facility] [address] [place] [address] * CHEM 7 ADD ON (06/14/2018 7:49 AM STE[employer] D[employer] MAK[employer] APPRENTICE) Total Protein 5.8 (L) 6.0 - 8.0 G/DL [facility] Total Bilirubin 0.7 0.3 - 1.2 MG/DL [facility] Albumin 2.6 (L) 3.5 - 5.0 G/DL [facility] Alk Phosphatase 45 25 - 110 U/L [facility] AST (SGOT) 18 7 - 40 U/L [facility] ALT (SGPT) 4 (L) 7 - 56 U/L [facility] Performing Organization Address City/[facility] Services[facility] Phone Number [facility] [address] [place] [address] * TROPONIN-I (06/10/2018 10:20 PM STE[employer] DIE MAKER APPRENTICE) Only the most recent of 6 results within the time period is included. Troponin-I 0.01 0.0 - 0.05 NG/ML MAIN LAB Specimen Blood Performing Organization Address City/[facility]/Zipcode Phone Number [facility] [address] [place] [address] * HEMOGLOBIN (06/08/2018 4:45 AM STEEL RU[employer] DIE MAKER APPRENTICE) Hemoglobin 8.8 (L) 12.0 - 15.0 GM/DL MAIN LAB Specimen Blood Performing Organization Address City/[facility] Services[facility] Phone Number [facility] [address] [place] [address] * TRANSFUSE RBC'S NON-BLEEDING PT (06/07/2018 5:33 PM STE[employer]IE MAKER APPRENTICE) Only the most recent of 4 results within the time period is included. * TYPE & CROSSMATCH (06/07/2018 11:38 AM STE[employer]IE MAKER APPRENTICE) Only the most recent of 2 results within the time period is included. Units Ordered 1 [facility] Crossmatch Expires 06/10/2018 MAIN LAB Record Check FOUND MAIN LAB ABO/RH(D) A POS MAIN LAB Antibody Screen POS [facility] Antibody Indentification Anti-Jk(a), [facility] EMETERIO, Broad Spectrum NEG [facility] Maureen Unit Number [id number] [facility] Blood Component Type RBC,ADSOL,LEUKO REDUCED [facility] Unit Division 0 MAIN LAB Status OF Unit REL FROM ALLOC [facility] Transfusion Status DO NOT ISSUE FOR TRANSFUSION [facility] Antigen Type (Units) Jk(a) antigen POS, [facility] Unit Number [id number] [facility] Blood Component Type RBC,ADSOL,LEUKO REDUCED [facility] Unit Division 0 MAIN LAB Status OF Unit REL FROM ALLOC [facility] Transfusion Status DO NOT ISSUE FOR TRANSFUSION [facility] Antigen Type (Units) Jk(a) antigen POS, [facility] Unit Number [id number] [facility] Blood Component Type RBC,ADSOL,LEUKO REDUCED [facility] Unit Division 0 MAIN LAB Status OF Unit REL FROM ALLOC [facility] Transfusion Status DO NOT ISSUE FOR TRANSFUSION MAIN LAB Antigen Type (Units) Jk(a) antigen POS, [facility] Unit Number [id number] [facility] Blood Component Type RBC,ADSOL,LEUKO REDUCED MAIN LAB Unit Division 0 [facility] Status OF Unit TRANSFUSED MAIN LAB Transfusion Status OK TO TRANSFUSE MAIN LAB Crossmatch Result COMPATIBLE, [facility] Antigen Type (Units) Jk(a) antigen NEG, [facility] Unit Number [id number] [facility] Blood Component Type RBC,ADSOL,LEUKO REDUCED MAIN LAB Unit Division 0 MAIN LAB Status OF Unit REL FROM ALLOC MAIN LAB Transfusion Status DO NOT ISSUE FOR TRANSFUSION MAIN LAB Antigen Type (Units) Jk(a) antigen POS, [facility] Unit Number [id number] MAIN LAB Blood Component Type RBC,ADSOL,LEUKO REDUCED MAIN LAB Unit Division 0 MAIN LAB Status OF Unit REL FROM ALLOC MAIN LAB Transfusion Status DO NOT ISSUE FOR TRANSFUSION MAIN LAB Antigen Type (Units) Jk(a) antigen POS, MAIN LAB Specimen Blood Performing Organization Address City/State/Zipcode Phone Number [facility] [address] [place] [address] * CBC AND DIFF (06/07/2018 3:24 AM STE[employer] MAKER APPRENTICE) Only the most recent of 16 results within the time period is included. White Blood Cells 3.4 (L) 4.5 - 11.0 K/UL MAIN LAB RBC 2.27 (L) 4.0 - 5.0 M/UL MAIN LAB Hemoglobin 7.1 (L) 12.0 - 15.0 GM/DL MAIN LAB Hematocrit 21.7 (L) 36 - 45 % MAIN LAB MCV 95.7 80 - 100 FL MAIN LAB MCH 31.3 26 - 34 PG MAIN LAB MCHC 32.7 32.0 - 36.0 G/DL MAIN LAB RDW 17.0 (H) 11 - 15 % [facility] Platelet Count 107 (L) 150 - 400 K/UL MAIN LAB MPV 8.3 7 - 11 FL MAIN LAB Neutrophils 62 41 - 77 % [facility] Lymphocytes 20 (L) 24 - 44 % [facility] Monocytes 11 4 - 12 % [facility] Eosinophils 6 (H) 0 - 5 % [facility] Basophils 1 0 - 2 % MAIN LAB Absolute Neutrophil Count 2.20 1.8 - 7.0 K/UL MAIN LAB Absolute Lymph Count 0.70 (L) 1.0 - 4.8 K/UL [facility] Absolute Monocyte Count 0.40 0 - 0.80 K/UL [facility] Absolute Eosinophil Count 0.20 0 - 0.45 K/UL [facility] Absolute Basophil Count 0.00 0 - 0.20 K/UL [facility] Specimen Blood Performing Organization Address City/State/Zipcode Phone Number [facility] [address] [place] [address] * PHOSPHORUS (06/07/2018 3:24 AM STE[employer] DIE MAKER APPRENTICE) Only the most recent of 9 results within the time period is included. Phosphorus 2.6Comment: NOTE NEW REFERENCE 2.0 - 4.5 MG/DL [facility] RANGES Specimen Blood Performing Organization Address [facility] Servicescode Phone Number MA[facility] LAB [address] [place] [address] * COMPREHENSIVE METABOLIC PANEL (06/07/2018 3:24 AM STE[employer] DIE MAKER APPRENTICE) Only the most recent of 15 results within the time period is included. Sodium 137 137 - 147 MMOL/L [facility] Potassium 4.3 3.5 - 5.1 MMOL/L [facility] Chloride 101 98 - 110 MMOL/L [facility] Glucose 194 (H) 70 - 100 MG/DL [facility] Blood Urea Nitrogen 32 (H) 7 - 25 MG/DL [facility] Creatinine 1.20 (H) 0.4 - 1.00 MG/DL [facility] Calcium 8.6 8.5 - 10.6 MG/DL [facility] Total Protein 5.5 (L) 6.0 - 8.0 G/DL [facility] Total Bilirubin 0.4 0.3 - 1.2 MG/DL [facility] Albumin 2.6 (L) 3.5 - 5.0 G/DL [facility] Alk Phosphatase 38 25 - 110 U/L [facility] AST (SGOT) 14 7 - 40 U/L [facility] CO2 34 (H) 21 - 30 MMOL/L [facility] ALT (SGPT) 6 (L) 7 - 56 U/L [facility] Anion Gap 2 (L) 3 - 12 [facility] eGFR Non 46 (L) >60 mL/min [facility] Comment: The eGFR is not validated for use in drug dosing adjustments.Continue to use estimated creatinine clearance per dosing reference text.Please contact the Clinical Pharmacist for questions. eGFR 55 (L) >60 mL/min MAIN LAB Comment: The eGFR is not validated for use in drug dosing adjustments.Continue to use estimated creatinine clearance per dosing reference text.Please contact the Clinical Pharmacist for questions. Specimen Blood Performing Organization Address [facility] Servicescode Phone Number MAIN LAB [address] [place] [address] * PROTIME INR (PT) (06/06/2018 6:20 AM STE[employer] DIE MAKER APPRENTICE) Only the most recent of 10 results within the time period is included. INR 1.2 0.8 - 1.2 MAIN LAB Specimen Blood Performing Organization Address [facility] Servicescode Phone Number MAIN LAB [address] [place] [address] * BLOOD GASES, CENTRAL VENOUS (06/04/2018 11:26 PM [employer] DIE MAKER APPRENTICE) PH-Central Venous 7.35 7.30 - 7.40 MAIN LAB PCO2-Central Venous 61 >40 MMHG MAIN LAB PO2-Central Venous 37 (L) 40 - 50 MMHG [facility] Base Excess-Central 6.8 MMOL/L MAIN LAB Venous O2 Sat (Calc)-Central 66.9 65 - 75 % [facility] Venous Bicarb-Central Venous 30.2 MMOL/L MAIN LAB Specimen Blood Performing Organization Address [facility] Services[facility] Phone Number MAIN LAB [address] [place] [address] * VANCOMYCIN TROUGH (06/04/2018 11:15 AM STE[employer] RU[employer] DIE MAKER APPRENTICE) Vancomycin Trough 17.1 10.0 - 20.0 MCG/ML MAIN LAB Performing Organization Address [facility] Servicescode Phone Number MAIN LAB [address] [place] [address] * VANCOMYCIN TIMED LEVEL (06/03/2018 3:48 AM STE[employer] DIE MAKER APPRENTICE) Only the most recent of 2 results within the time period is included. Vancomycin Random 17.4 MCG/ML MAIN LAB Specimen Blood Performing Organization Address [facility] Servicescode Phone Number MAIN LAB [address] [place] [address] * ABDOMEN AP ONLY (06/02/2018 5:17 PM [employer]IE MAKER APPRENTICE) Impressions Performed At Interval exchange of enteric catheters. RAD RESULTS Finalized by Spencer Haynes D.O. on 06/03/2018 6:25 AM. Dictated by Spencer Haynes D.O. on 06/03/2018 6:24 AM. Narrative Performed At Portable upright abdomen [facility] RES[facility] CLINICAL HISTORY: Post feeding tube placement COMPARISON: Prior CT scan of the abdomen and pelvis May 30, 2018 FINDINGS: Interval exchange of the nasogastric tube for a nasoenteric catheter with its tip overlying the region of the duodenal bulb. The visualized bowel loops are nondistended. Procedure Note Interface, Radiant Results - 06/03/2018 6:28 AM STE[employer]IE MAKER APPRENTICE Portable upright abdomen CLINICAL HISTORY: Post feeding tube placement COMPARISON: Prior CT scan of the abdomen and pelvis May 30, 2018 FINDINGS: Interval exchange of the nasogastric tube for a nasoenteric catheter with its tip overlying the region of the duodenal bulb. The visualized bowel loops are nondistended. IMPRESSION Interval exchange of enteric catheters. Finalized by Spencer Haynes D.O. on 06/03/2018 6:25 AM. Dictated by Spencer Haynes D.O. on 06/03/2018 6:24 AM. Performing Organization Address [facility] Phone Number [employer] RESULTS * BLOOD GASES, ARTERIAL (06/02/2018 2:57 PM STE[employer] DIE MAKER APPRENTICE) Only the most recent of 7 results within the time period is included. pH-Arterial 7.37 7.35 - 7.45 MAIN LAB pCO2-Arterial 52 (H) 35 - 45 MMHG [facility] pO2-Arterial 83 80 - 100 MMHG [facility] Base Excess-Arterial 4.4 MMOL/L [facility] O2 Sat-Arterial 96.2 95 - 99 % MAIN LAB Agvyjvyklpq-FYB-Qij 28.4 (H) 21 - 28 MMOL/L MAIN LAB Specimen Blood, arterial - Blood Performing Organization Address City/[facility] Services[facility] Phone Number MAIN LAB [address] [place] [address] * CULTURE-URINE W/SENSITIVITY (06/02/2018 2:23 PM STE[employer] MAKER APPRENTICE) Battery Name URINE CULTURE MAIN LAB Specimen Description URINE MAIN LAB Special Requests NONE [facility] Culture <100,000 organisms/ml MAIN LAB TESS ALBICANS Report Status FINAL MAIN LAB 06/03/2018 Specimen Urine - Urine Performing Organization Address [facility] Services[facility] Phone Number MAIN LAB [address] [place] [address] * AMMONIA (06/02/2018 2:20 PM STE[employer] DIE MAKER APPRENTICE) Ammonia 95 (H) 9 - 35 MCMOL/L MAIN LAB Specimen Blood Performing Organization Address City/State/Zipcode Phone Number MAIN LAB [address] [place] [address] * 2-D + DOPPLER ECHOCARDIOGRAM (06/02/2018 9:41 AM [employer] MAKER APPRENTICE) Only the most recent of 2 results within the time period is included. IVS 1.17 0.6 - 0.9 cm OTHER OUTSIDE LAB LVIDD 4.63 3.8 - 5.2 cm OTHER OUTSIDE LAB LVIDS 3.19 2.2 - 3.5 cm OTHER OUTSIDE LAB PW 1.13 0.6 - 0.9 cm OTHER OUTSIDE LAB Right Ventricular Mid 4.84 1.9 - 3.5 cm OTHER OUTSIDE LAB Diameter LA size 4.99 2.7 - 3.8 cm OTHER OUTSIDE LAB LA volume 75.61 22 - 52 mL OTHER OUTSIDE LAB Right Atrial Area 17.39 <18 cm2 OTHER OUTSIDE LAB Right Atrial Major 5.71 2.2 - 2.8 cm OTHER OUTSIDE LAB Dimension and a peak gradient of 11.98 mmHg OTHER OUTSIDE LAB AV peak velocity 1.73 m/s OTHER OUTSIDE LAB Right Heart Systolic 2.19 >1.7 cm OTHER OUTSIDE LAB Mmode TAPSE Right Ventricular Basal 5.3 2.5 - 4.1 cm OTHER OUTSIDE LAB Diameter Sinus 3.38 2.7 - 3.3 cm OTHER OUTSIDE LAB BSA 2.43 m2 OTHER OUTSIDE LAB FS 31.10 28 - 44 % OTHER OUTSIDE LAB EF 52.87 % OTHER OUTSIDE LAB LV mass 194.92 66 - 150 g OTHER OUTSIDE LAB RWT 0.49 <=0.42 OTHER OUTSIDE LAB Left Atrium Index 31.12 16 - 34 OTHER OUTSIDE LAB Cardiology Ultrasound Siemens [id number] OTHER OUTSIDE LAB Machine Left Ventricle Mass Index 80.21 44 - 88 g/m2 OTHER OUTSIDE LAB TV rest pulmonary artery 41 mmHg OTHER OUTSIDE LAB pressure Right Heart Systolic TDI 0.083 m/s OTHER OUTSIDE LAB S' ECHO EF 50 % OTHER OUTSIDE LAB Narrative Performed At OTHER OUTSIDE LAB 1. Technically difficult study with poor visualization of cardiac structures. 2. Normal left ventricular systolic function with an EF of 50-55%. 3. No regional wall motion abnormalities. 4. Unable to assess diastolic function, there was fusion of the E and A waves. 5. RV is mildly dilated, function is probably normal.Quantitative parameters were normal. 6. Mild to moderate MR. 7. Mild to moderate TR. 8. Aortic sclerosis without stenosis. 9. Peak PAP of 41 mmHg. 10. Normal aortic root size. 11. No pericardial effusion. The prior study was obtained on 04/01/2018.It showed an EF of 65%, RV function was normal, trace MR, mild TR, aortic sclerosis without stenosis., peak PAP was 45 mmHg, no pericardial effusion.Both studies are technically difficult.On the current study, the LV appears slightly less dynamic, the MR appears more prominent. Performing Organization Address City/[facility]/[employer] Phone Number OTHER OUTSIDE LAB * STREPTOCOCCUS PNEUMO AG, URINE (06/01/2018 10:10 PM STEEL RU[employer] DIE MAKER APPRENTICE) Battery Name STREP PNEUMO AG, UR [facility] Specimen Description URINE [facility]IN [facility] Special Requests NONE [facility] Antigen NEGATIVE [facility]IN [facility] Report Status FINAL [facility] 06/02/2018 Specimen Urine Performing Organization Address [facility] Phone Number [facility] [address] [place] [address] * URINALYSIS, MICROSCOPIC (06/01/2018 10:10 PM STE[employer] DIE MAKER APPRENTICE) Only the most recent of 2 results within the time period is included. WBCs,UA 20-50 0 - 2 /HPF [facility] RBCs,UA 10-20 0 - 3 /HPF [facility] Bacteria,UA FEW (A) NEG-NEG [facility] Squamous Epithelial Cells 0-2 0 - 5 [facility] Budding Yeast PACKED [facility]IN [facility] Specimen Urine - Urine Performing Organization Address [facility]/[employer] Phone Number [facility] [address] [place] [address] * URINALYSIS DIPSTICK (06/01/2018 10:10 PM STE[employer] DIE MAKER APPRENTICE) Only the most recent of 2 results within the time period is included. Color,UA CARLIE [facility] Turbidity,UA CLEAR CLEAR-CLEAR [facility] Specific [place]-Urine 1.018 1.003 - 1.035 [facility] pH,UA 5.0 5.0 - 8.0 [facility] Protein,UA NEG NEG-NEG [facility] Glucose,UA NEG NEG-NEG [facility] Ketones,UA NEG NEG-NEG [facility] Bilirubin,UA NEG NEG-NEG [facility] Blood,UA 1+ (A) NEG-NEG MAIN LAB Urobilinogen,UA INCREASED (A) NORM-NORMAL [facility] Nitrite,UA POS (A) NEG-NEG MAIN LAB Leukocytes,UA 1+ (A) NEG-NEG MAIN LAB Urine Ascorbic Acid, UA NEG NEG-NEG MAIN LAB Specimen Urine - Urine Performing Organization Address [facility] Phone Number MAIN LAB [address] [place] [address] * UREA NITROGEN-URINE RANDOM (06/01/2018 10:10 PM STEEL RU[employer] DIE MAKER APPRENTICE) Only the most recent of 4 results within the time period is included. Urea Nitrogen 757 MG/DL MAIN LAB Performing Organization Address [facility] Phone Number MAIN LAB [address] [place] [address] * SODIUM-URINE RANDOM (06/01/2018 10:10 PM STEEL RU[employer] DIE MAKER APPRENTICE) Only the most recent of 3 results within the time period is included. Sodium, Random 10 MMOL/L MAIN LAB Specimen Urine - Urine Performing Organization Address [facility] Phone Number MAIN LAB [address] [place] [address] * LEGIONELLA ANTIGEN URINE,RAN (06/01/2018 10:10 PM STEEL RU[employer] DIE MAKER APPRENTICE) Battery Name LEGIONELLA URINE ANTIGEN MAIN LAB Specimen Description URINE MAIN LAB Special Requests NONE MAIN LAB Antigen NEGATIVE MAIN LAB Report Status FINAL MAIN LAB 06/02/2018 Specimen Urine - Urine Performing Organization Address [facility] Phone Number MAIN LAB [address] [place] [address] * CREATININE-URINE RANDOM (06/01/2018 10:10 PM STEEL RU[employer] DIE MAKER APPRENTICE) Only the most recent of 4 results within the time period is included. Creatinine, Random 94 MG/DL MAIN LAB Specimen Urine - Urine Performing Organization Address [facility] Phone Number MAIN LAB [address] [place] [address] * THYROID STIMULATING HORMONE-TSH (06/01/2018 10:00 PM STE[employer]IE MAKER APPRENTICE) TSH 1.990 0.35 - 5.00 MCU/ML MAIN LAB Specimen Blood Performing Organization Address [facility] Phone Number [facility] [address] [place] [address] * FREE T4 (FREE THYROXINE) ONLY (06/01/2018 10:00 PM STE[employer] DIE MAKER APPRENTICE) T4-Free 1.0 0.6 - 1.6 NG/DL MAIN LAB Specimen Blood Performing Organization Address [facility] Phone Number [facility] [address] [place] [id number] * GRAM STAIN (06/01/2018 8:33 PM STEEL RU[employer] DIE MAKER APPRENTICE) Battery Name GRAM STAIN MAIN LAB Specimen Description TRACHEAL ASPIRATE MAIN LAB Special Requests NONE MAIN LAB Gram Stain GREATER THAN 25/LPF MAIN LAB NEUTROPHILS LESS THAN 10/LPF SQUAMOUS EPITHELIAL CELLS NO ORGANISMS SEEN Report Status FINAL MAIN LAB 06/02/2018 Specimen Tracheal Aspirate Performing Organization Address [facility] Phone Number MAIN LAB [address] [place] [address] * CULTURE-RESP,LOWER W/SENSITIVITY (06/01/2018 8:33 PM STEEL RU[employer] DIE MAKER APPRENTICE) Battery Name LOWER RESP CULTURE [facility]IN [facility] Specimen Description TRACHEAL ASPIRATE MAIN LAB Special Requests NONE MAIN LAB Direct Gram Stain GREATER THAN 25/LPF MAIN LAB NEUTROPHILS LESS THAN 10/LPF SQUAMOUS EPITHELIAL CELLS NO ORGANISMS SEEN Culture Light growth MAIN LAB NO SIGNIFICANT ROB Report Status FINAL MAIN LAB 06/03/2018 Specimen Tracheal Aspirate Performing Organization Address [facility] Phone Number MAIN LAB [address] [place] [address] * O2 SATURATION, CENTRAL VENOUS (06/01/2018 7:00 PM STEEL RU[employer] DIE MAKER APPRENTICE) O2 Sat, Central Venous 83.6 % MAIN LAB Specimen Blood Performing Organization Address [facility] Phone Number MAIN LAB [address] [place] [address] * CHEST SINGLE VIEW (06/01/2018 6:52 PM STE[employer] DIE MAKER APPRENTICE) Only the most recent of 12 results within the time period is included. Impressions Performed At Interval intubation with persistence of left pleural effusion and atelectasis [facility] RESULTS left lower lobe. Finalized by Eddy Hauser M.D. on 06/02/2018 11:08 AM. Dictated by Eddy Hauser M.D. on 06/02/2018 11:06 AM. Narrative Performed At CHEST SINGLE VIEW [facility] RESULTS History: Intubated, Hypoxia. Technique: Single portable AP upright view of the chest was obtained. Comparison: Comparison is made to an examination of 04/28/2018. Findings: The patient is now intubated. The tip of the endotracheal tube is well above the brionna. A gastric tube passes into the stomach. A right jugular catheter has been placed and has its tip at the level of the low SVC. Changes of prior sternotomy and coronary bypass are noted. There is a persistent left pleural effusion associated with partial atelectasis of left lower lobe. The right lung is free of acute abnormalities. There is no evidence of acute vascular congestion or pulmonary edema. No pneumothorax is identified. Procedure Note Interface, Radiant Results - 06/02/2018 11:11 AM STEEL RULE DIE MAKER APPRENTICE CHEST SINGLE VIEW History: Intubated, Hypoxia. Technique: Single portable AP upright view of the chest was obtained. Comparison: Comparison is made to an examination of 04/28/2018. Findings: The patient is now intubated. The tip of the endotracheal tube is well above the brionna. A gastric tube passes into the stomach. A right jugular catheter has been placed and has its tip at the level of the low SVC. Changes of prior sternotomy and coronary bypass are noted. There is a persistent left pleural effusion associated with partial atelectasis of left lower lobe. The right lung is free of acute abnormalities. There is no evidence of acute vascular congestion or pulmonary edema. No pneumothorax is identified. IMPRESSION Interval intubation with persistence of left pleural effusion and atelectasis left lower lobe. Finalized by Eddy Hauser M.D. on 06/02/2018 11:08 AM. Dictated by Eddy Hauser M.D. on 06/02/2018 11:06 AM. Performing Organization Address City/State/Zipcode Phone Number Work4 RESULTS * CULTURE-BLOOD W/SENSITIVITY (06/01/2018 6:47 PM STEEL RULE DIE MAKER APPRENTICE) Only the most recent of 6 results within the time period is included. Battery Name BLOOD CULTURE [facility] MAIN LAB Specimen Description BLOOD [facility] MAIN LAB TRIPLE LUMEN Special Requests NONE [facility] MAIN LAB Culture NO GROWTH 5 DAYS [facility] MAIN LAB Report Status FINAL [facility] MAIN LAB 06/07/2018 Specimen Blood Performing Organization Address City/State/[facility] Phone Number MAIN LAB [address] [place] [address] * BLOOD BANK SAMPLE HOLD (06/01/2018 6:35 PM STEEL RULE DIE MAKER APPRENTICE) BB Sample hold IN LAB [facility] MAIN LAB Performing Organization Address [facility] Phone Number MAIN LAB [address] [place] [address] * LACTIC ACID (BG - RAPID LACTATE) (06/01/2018 6:35 PM STEEL RULE DIE MAKER APPRENTICE) Only the most recent of 3 results within the time period is included. Lactic Acid,BG 1.3 0.5 - 2.0 MMOL/L MAIN LAB Specimen Blood Performing Organization Address [facility] Phone Number MAIN LAB [address] [place] [phone] * PROCALCITONIN (06/01/2018 6:31 PM STEEL RULE DIE MAKER APPRENTICE) Procalcitonin 0.22 (H) <0.10 NG/ML MAIN LAB Specimen Blood Performing Organization [facility] Phone Number MAIN LAB [address] [place] [address] * TSH WITH FREE T4 REFLEX (06/01/2018 6:31 PM STEEL RULE DIE MAKER APPRENTICE) TSH 2.850 0.35 - 5.00 MCU/ML MAIN LAB Specimen Blood Performing Organization [facility] Phone Number MAIN LAB [address] [place] [address] * BNP (B-TYPE NATRIURETIC PEPTI) (06/01/2018 6:31 PM STEEL RULE DIE MAKER APPRENTICE) B Type Natriuretic 247.0 (H) 0 - 100 PG/ML MAIN LAB Peptide Specimen Blood Performing Organization [facility] Phone Number MAIN LAB [address] [place] [address] * GENERAL RAD CHEST EXTERNAL IMAGING (06/01/2018 12:15 AM STEEL RULE DIE MAKER APPRENTICE) Only the most recent of 7 results within the time period is included. Narrative Performed At This order has been auto finalized and does not contain a result. * ECG-SCAN (06/01/2018 12:00 AM STEEL RULE DIE MAKER APPRENTICE) Narrative Performed At Ordered by an unspecified provider. * ECG-SCAN (06/01/2018 12:00 AM STEEL RULE DIE MAKER APPRENTICE) Narrative Performed At Ordered by an unspecified provider. * ECG-SCAN (06/01/2018 12:00 AM STEEL RULE DIE MAKER APPRENTICE) Narrative Performed At Ordered by an unspecified provider. * ECG-SCAN (05/31/2018 12:00 AM STEEL RULE DIE MAKER APPRENTICE) Narrative Performed At Ordered by an unspecified provider. * CT HEAD EXTERNAL IMAGING (05/30/2018 1:45 AM STEEL RULE DIE MAKER APPRENTICE) Only the most recent of 3 results within the time period is included. Narrative Performed At This order has been auto finalized and does not contain a result. * CT L-SPINE EXTERNAL IMAGING (05/30/2018 1:30 AM STEEL RULE DIE MAKER APPRENTICE) Narrative Performed At This order has been auto finalized and does not contain a result. * GENERAL RAD PELVIS EXTERNAL IMAGING (05/30/2018 1:15 AM STEEL RULE DIE MAKER APPRENTICE) Narrative Performed At This order has been auto finalized and does not contain a result. * CT CHEST/ABD/PEL EXTERNAL IMAGING (05/30/2018 1:00 AM STEEL RULE DIE MAKER APPRENTICE) Narrative Performed At This order has been auto finalized and does not contain a result. * ECG-SCAN (05/30/2018 12:00 AM STEEL RULE DIE MAKER APPRENTICE) Narrative Performed At Ordered by an unspecified provider. * US ABDOMEN EXTERNAL IMAGING (05/28/2018 12:00 AM STEEL RULE DIE MAKER APPRENTICE) Narrative Performed At This order has been auto finalized and does not contain a result. * HEPATITIS A IGG (04/29/2018) Hepatitis A IGG 9.84 (H) OTHER OUTSIDE LAB Specimen Blood - Blood Narrative Performed At Performing Organization Address City/State/Zipcode Phone Number OTHER OUTSIDE LAB * HIV-1/2 ANTIGEN/ANTIBODY SCREEN (04/29/2018) HIV 1 and 2 AG AB Screen Non-Reactive OTHER OUTSIDE LAB Specimen Blood Narrative Performed At Performing Organization Address City/State/Zipcode Phone Number OTHER OUTSIDE LAB * IGG SUBCLASSES (04/29/2018) IgG Subclasses #1 994 (H) OTHER OUTSIDE LAB IgG Subclasses #2 387 OTHER OUTSIDE LAB IgG Subclasses #3 100 OTHER OUTSIDE LAB IgG Subclasses #4 33 OTHER OUTSIDE LAB Specimen Blood - Blood Narrative Performed At Performing Organization Address City/State/Zipcode Phone Number OTHER OUTSIDE LAB * CERULOPLASMIN (04/29/2018) Ceruloplasmin 25 OTHER OUTSIDE LAB Specimen Blood - Blood Narrative Performed At Performing Organization Address City/State/Zipcode Phone Number OTHER OUTSIDE LAB * ANTI-SMOOTH MUSCLE AB (04/29/2018) Anti-Smooth Muscle Screen <1.20 OTHER OUTSIDE LAB Specimen Blood - Blood Narrative Performed At Performing Organization Address City/State/Zipcode Phone Number OTHER OUTSIDE LAB * ANTI-MITOCHONDRIAL ANTIBODY (04/29/2018) Anti-Mitochondrial Screen <1.20 OTHER OUTSIDE LAB Specimen Blood - Blood Narrative Performed At Performing Organization Address City/State/Zipcode Phone Number OTHER OUTSIDE LAB * ANTI-NUCLEAR ANTIBODY(IVON) (04/29/2018) IVON Screen <1:80 OTHER OUTSIDE LAB Specimen Blood - Blood Narrative Performed At Performing Organization Address City/State/Zipcode Phone Number OTHER OUTSIDE LAB * CHEST 2 VIEWS (04/28/2018 5:31 PM STEEL RULE DIE MAKER APPRENTICE) Only the most recent of 2 results [...] Interface, Radiant Results - 04/29/2018 10:53 AM STEEL RULE DIE MAKER APPRENTICE Procedure: CHEST 2 VIEWS Clinical Indication: Shortness [...] RAD RESULTS * ECG-SCAN (04/24/2018 5:40 PM STEEL RULE DIE MAKER APPRENTICE) Narrative Performed At Ordered by an unspecified provider. * TELEMETRY STRIPS-SCAN (04/16/2018 12:49 PM CDT) Narrative Performed At Ordered by an unspecified provider. * ECG-SCAN (04/13/2018 5:02 PM CDT) Narrative Performed At Ordered by an unspecified provider. * TELEMETRY STRIPS-SCAN (04/09/2018 3:24 PM CDT) Narrative Performed At Ordered by an unspecified provider. * TRANSESOPHAGEAL ECHOCARDIOGRAM (04/08/2018 4:06 PM CDT) BSA 2.19 m2 OTHER OUTSIDE LAB CV ECHO PV [employer] Marisa RN, Anesthesia Team OTHER OUTSIDE LAB Interp Only Diesel Tractor Engine Mechanic hCaru Golden OTHER OUTSIDE LAB Cardiology Ultrasound Siemens [id number] OTHER OUTSIDE LAB Machine TV rest pulmonary artery 30 mmHg OTHER OUTSIDE LAB pressure AV peak velocity 1.3 m/s OTHER OUTSIDE LAB ECHO EF 55 % OTHER OUTSIDE LAB Vn Nyquist 0.26 m/s OTHER OUTSIDE LAB Radius 0.5 cm OTHER OUTSIDE LAB Mr max zahra 4.4 m/s OTHER OUTSIDE LAB MR RICHARD PERRY 0.09 cm2 OTHER OUTSIDE LAB Sinus 3.2 [...] City/State/Zipcode Phone Number OTHER OUTSIDE LAB * PTT (APTT) (04/08/2018 5:00 AM CDT) Only the most recent of 11 results within the time period is included. APTT 30.2Comment: NOTE NEW 20.0 - 36.0 SEC MAIN LAB REFERENCE RANGES Specimen Blood Performing Organization Address City/State/Zipcode Phone Number MAIN LAB [address] [place] [address] * COLONOSCOPY (04/07/2018 12:07 PM CDT) Provation Report Patient Name: Donnie CASTILLO OTHER RESULTS Procedure Date: 04/07/2018 12:07 PM [facility]: [id number] Date of : 1955 Gender: Female Attending Physician: Skinny Marshall MD Procedure: Colonoscop y Indications: Hematochezia Providers: Skinny Marshall MD (Doctor), Conner Martines MD (Fellow), Mariana Suarez RN (Nurse), Elvia River, Lithoplate Maker (Lithoplate Maker) Referring Physician: Felisa Sneed Medications: Monitored Anesthesia [...] On: 04/07/2018 12:07 PM Performing Organization Address [facility]/[employer] Phone Number JONATHAN OTHER RESULTS * IRON + BINDING CAPACITY + %SAT+ FERRITIN (04/06/2018 3:00 AM CDT) Iron 23 (L)Comment: SLT HEMOLYSIS 50 - 160 MCG/DL [facility] MAIN LAB Iron Binding-TIBC 273 270 - 380 MCG/DL [facility] MAIN LAB % Saturation 8 (L) 28 - 42 % [facility] MAIN LAB Ferritin 259 (H) 10 - 200 NG/ML Culture Machine MAIN LAB Performing Organization Address [facility] Services[facility] Re Phone Number Culture Machine MAIN LAB [address] [place] [address] * FOLATE, SERUM (04/06/2018 3:00 AM CDT) Serum Folate >23.4 >3.9 NG/ML Culture Machine MAIN LAB Comment: SLT HEMOLYSIS NOTE NEW REFERENCE RANGES Performing Organization Address [facility] Services[facility] Re Phone Number Culture Machine MAIN LAB [address] [place] [address] * VITAMIN B12 (04/06/2018 3:00 AM CDT) Vitamin B12 1,234 (H) 180 - 914 PG/ML Culture Machine MAIN LAB Performing Organization Address [facility] Services[facility] Re Phone Number [employer] LAB [address] [place] [address] * HEMOGLOBIN & HEMATOCRIT (04/03/2018 8:11 PM CDT) Hemoglobin 8.1 (L) 12.0 - 15.0 GM/DL [facility] MAIN LAB Hematocrit 24.1 (L) 36 - 45 % [facility] MAIN LAB Specimen Blood Performing Organization Address [facility]/Zipcode Phone Number JONATHAN MAIN LAB [address] [place] [address] * CT HEAD WO CONTRAST (04/01/2018 7:51 [...] on 04/01/2018 9:49 PM. Performing Organization Address [facility] Phone Number RAD RESULTS * BLOOD GASES, PERIPHERAL VENOUS (04/01/2018 11:55 AM CDT) pH-Venous 7.24 (L) 7.30 - 7.40 [facility] MAIN LAB PCO2-Venous 65 (H) 36 - 50 MMHG [facility] MAIN LAB PO2-Venous 44 33 - 48 MMHG [facility] MAIN LAB Base Deficit-Venous 0.9 MMOL/L [facility] MAIN LAB O2 Sat-Venous 74.1 (H) 55 - 71 % MAIN LAB Chnmznclthz-PVV-Ukk 23.4 MMOL/L MAIN LAB Specimen Blood, venous - Blood Performing Organization Address [facility] Phone Number MAIN LAB [address] [place] [address] * UA REFLEX CULTURE LABEL (04/01/2018 11:40 AM CDT) Only the most recent of 2 results within the time period is included. UA Reflex Culture LAB LABEL [facility] MAIN LAB Specimen Urine Performing Organization Address [facility] Phone Number MAIN LAB [address] [place] [address] * URINALYSIS MICROSCOPIC REFLEX TO CULTURE (04/01/2018 11:40 AM CDT) Only the most recent of 2 results within the time period is included. WBCs,UA 0-2 0 - 2 /HPF MAIN [...] MAIN LAB Specimen Urine Performing Organization Address [facility] Phone Number MAIN LAB [address] [place] [address] * URINALYSIS DIPSTICK REFLEX TO CULTURE (04/01/2018 11:40 AM CDT) Only the most recent of 2 results within the time period is included. Color,UA YELLOW [facility] MAIN LAB Turbidity,UA 1+ (A) CLEAR-CLEAR MAIN LAB Specific [place]-Urine 1.014 1.003 - 1.035 K[facility] MAIN LAB [...] MAIN LAB Specimen Urine Performing Organization Address City/[facility] Services[facility] Phone Number MAIN LAB [address] [place] [address] * EOSINOPHIL STAIN (04/01/2018 11:40 AM CDT) Battery Name EOSINOPHIL STAIN MAIN LAB Specimen Description URINE MAIN LAB Special Requests NONE MAIN LAB Ahuja's Stain NO EOSINOPHILS SEEN [facility] MAIN LAB Report Status FINAL [facility] MAIN LAB 04/02/2018 Specimen Urine Performing Organization Address [facility] Phone Number [facility] MAIN LAB [address] [place] [address] * URIC ACID (04/01/2018 7:50 AM CDT) Uric Acid 13.7 (H) 2.0 - 7.0 MG/DL [facility] MAIN LAB Specimen Blood Performing Organization Address [facility] Phone Number [facility] MAIN LAB [address] [place] [address] * CREATINE KINASE-CPK (04/01/2018 7:50 AM CDT) Creatine Kinase 16 (L) 21 - 215 U/L [facility] MAIN LAB Specimen Blood Performing Organization Address [facility] Phone Number [facility] MAIN LAB [address] [place] [address] * US RENAL BLADDER LTD (03/30/2018 4:21 [...] on 03/30/2018 4:22 PM. Performing Organization Address City/[facility] Phone Number RAD RESULTS * OSMOLALITY-URINE RANDOM (03/30/2018 12:31 PM CDT) Only the most recent of 2 results within the time period is included. Osmolality-Urine 364 50 - 1,400 MOS/KG MAIN LAB Specimen Urine - Urine Performing Organization Address [facility] Phone Number MAIN LAB [address] [place] [address] * TELEMETRY STRIPS-SCAN (03/30/2018 11:43 AM CDT) Narrative Performed At Ordered by an unspecified provider. * EGD REPORT (03/29/2018 7:42 AM CDT) Provation Report Patient Name: Donnie CASTILLO OTHER RESULTS Procedure Date: 03/29/2018 7:42 AM [facility]: [id number] Date of : 1955 Gender: Female Attending Physician: Dannielle Covington MD Procedure: Upper GI endoscopy Indications: Iron deficiency anemia Providers: Dannielle Covington MD (Doctor), Conner Martines MD (Fellow), Myla Meza RN (Nurse), Lynette More, Lithoplate Maker (Lithoplate Maker) Referring Physician: Dominic Fuller MD, Carla Puente [...] of the duodenum were normal. Impression: - [place]-colored mucosa suspicious for Long's esophagus. Biopsy is [...] discussed her endoscopic findings with Dr. Maier (development analyst). 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 Please consult hepatology team for further management. Scope In: 11:08:40 AM Scope Out: 11:17:33 AM Total Procedure Duration Time 0 hours 8 minutes 53 seconds Procedure Code(s): --- Professional --- 20677, Esophagogastroduodenoscopy, flexible, transoral; diagnostic, including collection of specimen(s) by brushing or washing, when performed (separate procedure) Diagnosis Code(s): --- Professional --- K22.8, Other specified diseases of esophagus I85.00, Esophageal varices without bleeding K76.6, Portal hypertension K31.89, Other diseases of stomach and duodenum K31.819, Angiodysplasia of stomach and duodenum without bleeding D50.9, Iron deficiency anemia, unspecified CPT copyright 2016 [employer]. All rights reserved. The codes documented in this report are preliminary and upon water valve repairer review may be revised to meet current compliance requirements. Attending Participation: I was present and participated during the entire procedure, including non-dempsey portions. MD Dannielle Velázquez MD 03/29/2018 12:03:01 PM The attending physician has electronically signed and finalized this document. Conner Martines MD Number of Addenda: 0 Note Initiated On: 03/29/2018 7:42 AM Performing Organization Address City/State/Zipcode Phone Number KU OTHER RESULTS * ECG-SCAN (03/27/2018 11:10 AM CDT) Narrative Performed At Ordered by an unspecified provider. * ECG-SCAN (03/27/2018 11:05 AM CDT) Narrative Performed At Ordered by an unspecified provider. * CHEST X-RAY INSPIRATION/EXPIRATION (03/26/2018 1:41 PM [...] M.D. on 03/27/2018 9:18 AM. Dictated by kSinny Lindsey M.D. on 03/27/2018 7:06 AM. Narrative [...] The needle was removed, and an 8 Mexican pigtail all purpose drainage catheter was advanced [...] The needle was removed, and an 8 Mexican pigtail all purpose drainage catheter was advanced [...] on 03/26/2018 2:14 PM. Performing Organization Address City/State/Zipcode Phone Number [...] on 03/25/2018 8:54 PM. Performing Organization Address City/[facility]/Zipcode Phone Number Culture Machine RAD RESULTS * BNP POC ER (03/25/2018 4:16 PM CDT) BNP POC 327.0 (H) 0 - 100 PG/ML Culture Machine MAIN LAB Performing Organization Address [facility] Phone Number Culture Machine MAIN LAB [address] [place] [address] * POC TROPONIN (03/25/2018 4:09 PM CDT) Tkcmoybl-Z-KXL 0.00 0.00 - 0.05 NG/ML Culture Machine MAIN LAB Performing Organization Address [facility] Phone Number Culture Machine MAIN LAB [address] [place] [address] * ECG-SCAN (03/25/2018 2:30 PM CDT) Narrative Performed At Ordered by an unspecified provider. from Last 3 Months Insurance Payer Benefit Subscriber ID Type Phone Address Plan / Group MEDICARE MEDICARE xxxxxxxxxxx [place] B [place] xxxxxxxxx[place] PENDING Deborah Fields Personal/F Self 1955 [address] [place] (Home) [place] [address] Advance Directives Patient has advance care planning documents, and code status on file. For more information, please contact: [facility] [address] [place] [address] Date Inactivated Comments Code Status Date Activated 06/18/2018 12:36 PM Full Code 06/02/2018 8:28 AM Provider has discussed Code Status Yes w/Patient or Family? 06/02/2018 8:28 AM Full Code 06/01/2018 6:56 PM Provider has discussed Code Status No, more discussion w/Patient or Family? needed 04/09/2018 12:03 AM Full Code 03/25/2018 6:45 PM Provider has discussed Code Status Yes w/Patient or Family? 02/27/2018 7:27 PM Full Code 02/13/2018 3:21 AM Provider has discussed Code Status Yes w/Patient or Family? 02/13/2018 3:21 AM Full Code 02/12/2018 7:28 PM Provider has discussed Code Status No, more discussion w/Patient or Family? needed
--- OUTSIDE RECORDS SUMMARY | 2018-06-18 13:31 | XMS REPORT | Encounter Summary ---
Author Author [facility] Organization [facility] Address Unknown Phone Unavailable Care Team Providers Care Pulmonary Care Nurse Name Role Phone Carla Wilson MD PCP Naima Field MD Unavailable Winnie Jorge MD Unavailable Encounter Details Care Team Description Date Type Department Cynthia Boyd MA,CCC-NUMEROLOGIST Dyspnea, unspecified type; Hepatic cirrhosis, unspecified hepatic cirrhosis type, unspecified whether ascites present (HCC); Esophageal varices without bleeding, unspecified esophageal varices type (HCC); GAVE (gastric antral vascular ectasia); Long's esophagus without dysplasia; Anemia, unspecified type 06/07/2018 Orders Only [facility] - Internal Medicine [facility] [address] [place] [address] Social History Date Tobacco Use Types Packs/Day [...] Status Date of Assessment Functional Status Response 06/02/2018 Does the patient have a hearing impairment: [...] Comments Procedure Name Priority Date/Time Associated Diagnosis HEPATITIS A IGG Routine 04/29/2018 Dyspnea, unspecified [...] Long's esophagus without dysplasia Anemia, unspecified type CERULOPLASMIN Routine 04/29/2018 Dyspnea, unspecified type Hepatic [...] Long's esophagus without dysplasia Anemia, unspecified type in this encounter Results * CERULOPLASMIN (04/29/2018) Ceruloplasmin 25 OTHER OUTSIDE [...] City/State/Zipcode Phone Number OTHER OUTSIDE LAB * HEPATITIS A IGG (04/29/2018) Hepatitis A IGG 9.84 (H) OTHER OUTSIDE LAB Specimen Blood - Blood Narrative Performed At Performing Organization Address City/State/Zipcode Phone Number OTHER OUTSIDE LAB in this encounter Visit Diagnoses Diagnosis Dyspnea, unspecified type Hepatic cirrhosis, unspecified hepatic cirrhosis type, unspecified whether ascites present (HCC) Esophageal varices without bleeding, unspecified esophageal varices type (HCC) GAVE (gastric antral vascular ectasia) Angiodysplasia of stomach and duodenum (without mention of hemorrhage) Long's esophagus without dysplasia Long's esophagus Anemia, unspecified type in this encounter
--- OUTSIDE RECORDS SUMMARY | 2018-06-18 13:31 | XMS REPORT | Encounter Summary ---
Author Author [facility] Organization [facility] Address Unknown Phone Unavailable Care Team Providers Care Export Clerk Name Role Phone Carla Wilson MD PCP Naima Field MD Unavailable Winnie Jorge MD Unavailable Reason for Visit * Auth/Cert Referred By Contact Referred To Contact Status Reason Specialty Diagnoses / Procedures Diagnoses Sepsis (HCC) Resp failure Encounter Details Care Team Description Date Type Department Juan Jose Verde MD [address] [employer] [facility] [address] [place] [address] [phone] Ping Ware MD [address] [place] [address] Danilo Osborn MD [address] [place] [address] Negro Tom MD [address] [facility] [address] [place] [address] [phone] Amarilis Ray MD [address] [facility] [address] [place] [address] [phone] PAF (paroxysmal atrial fibrillation) (HCC) 06/01/2018 Hospital Medicine Telemetry - Encounter [address] Unit 06/18/2018 46 [address] [place] [address] Social History Date Tobacco Use Types Packs/Day [...] Taken Vital Sign Reading 06/18/2018 8:24 AM MARKER MAKER Blood Pressure 146/75 06/18/2018 8:24 AM MARKER MAKER Pulse 88 06/18/2018 8:24 AM MARKER MAKER Temperature 36.7 C (98 F) - Respiratory Rate - 06/18/2018 8:24 AM MARKER MAKER Oxygen Saturation 95% - Inhaled Oxygen - Concentration 06/18/2018 5:00 AM MARKER MAKER Weight 120 kg (264 lb 8.8 oz) 06/02/2018 9:42 AM MARKER MAKER Height 162.6 cm (5' 4") 06/18/2018 5:00 AM MARKER MAKER Body Mass Index 45.41 in this encounter Functional Status Date of Assessment Functional Status Response 06/18/2018 Does the patient have a hearing impairment: No 06/18/2018 Does the patient have a visual impairment: No 06/18/2018 Does the patient have impaired ambulation: Yes 06/18/2018 Does the patient have an activity of daily living Yes (ADL) impairment: 06/18/2018 Does the patient have an instrumental activity of Yes daily living (IADL) impairment: Date of Assessment Cognitive Status Response 06/18/2018 Does the patient have a cognitive impairment: No as of this encounter Discharge Instructions * Appointments* Surya Curry MD - 06/07/2018 11:04 AM MARKER MAKER Please keep previously scheduled follow up ER MAKER in this encounter Medications at Time of [...] cream affected area twice daily as needed diphenhydrAMINE (BENADRYL Take 25 mg by 0 ALLERGY) 25 mg tablet mouth every 6 hours as needed for Sleep. folic acid (FOLVITE) 1 mg Take 1 mg by 0 tablet mouth daily. 06/18/2018 furosemide (LASIX) 80 mg Take one 90 tablet 3 tablet tablet by mouth every morning. howiyngs-[id number]-K-doug Take 500 mg 0 anese 500-400-2-0.33 mg by mouth cap twice daily. 02/27/2018 insulin aspart U-100 Inject four 10 [...] by mouth daily 30 minutes before breakfast. 06/18/2018 metoprolol tartrate Take one 60 tablet 1 (LOPRESSOR) 50 mg tablet tablet by mouth twice daily. This is a reduced dose from what you were taking previously nitroglycerin (NITROSTAT) Place 0.4 mg 0 0.4 mg tablet under tongue every 5 minutes as needed for Chest Pain. Max of 3 tablets, call 911. omeprazole DR(+) Take 40 mg by 0 (PRILOSEC) 40 mg capsule mouth twice daily. ondansetron (ZOFRAN) 8 mg Take 8 mg by 0 tablet mouth every 8 hours as needed for Nausea or Vomiting. 06/18/2018 polyethylene glycol 3350 Take one 12 each 3 (MIRALAX) 17 g packet packet by mouth twice daily as needed. 04/08/2018 potassium chloride SR Take one 90 tablet 3 (K-DUR) 20 mEq tablet tablet by mouth daily. Take with a meal and a full glass of water. 04/08/2018 pramoxine/zinc oxide Insert or 28 g 0 (TRONOLANE) 1% / 5% Apply to topical cream rectal area as directed daily as needed (For Hemorrhoids). 06/18/2018 senna/docusate Take one 0 (SENOKOT-S) 8.6/50 mg tablet by tablet mouth at bedtime daily. 06/18/2018 simethicone (MYLICON) 80 Chew one 30 tablet 0 mg chew tablet tablet by mouth every 6 hours as needed for Flatulence. tiZANidine (ZANAFLEX) 4 Take 4 mg by 0 mg tablet mouth at bedtime daily. 02/27/2018 traMADol (ULTRAM) 50 mg Take one 30 tablet 0 tablet tablet by mouth every 6 hours as needed for Pain. as of this encounter Progress Notes * Ivory Bruce RN - 06/18/2018 9:45 AM MARKER MAKER Deborah Fields discharged on 06/18/2018. Equipment Removed: Telepack. Discharge instructions reviewed with patient. Valuables returned: Where Are Valuables Stored?: bedside. Home medications: n/a Functional assessment at discharge complete: Yes . Discharge instructions reviewed with patient. AVS provided. All questions and concerns addressed. All personal belongings sent with patient. Patient's to transport to [facility], discharge transfer packet provided. ER MAKER * Joel Rome RN - 06/18/2018 12:05 AM MARKER MAKER Patient Problem called about: (document change in assessment or concern): TEXT PAGE SENT: PT C/O RUNNY NOSE & WATERY EYES. NORMALLY TAKES ZYRTEC AT HOME CAN SHE GET AN ORDER PLEASE? Time MD/CYBER DEFENSE INCIDENT RESPONDER Notified: 0005 MD/CYBER DEFENSE INCIDENT RESPONDER Name: MED 2 BULK SUGAR HANDLER PAGER [phone] MD/CYBER DEFENSE INCIDENT RESPONDER Response: Interventions: ER MAKER * Felisa Mcgill RN - 06/17/2018 6:52 PM MARKER MAKER Heart Failure Nursing Progress Note Admission Date: 06/01/2018 LOS: 16 days Admission Weight: 132 kg (291 lb 0.1 oz) Most recent weights (inpatient): Vitals: 06/16/18 0530 06/17/18 0450 06/17/18 0947 Weight: 126.3 kg (278 lb 7.1 oz) 122.9 kg (271 lb) 118.6 kg (261 lb 8 oz) Weight change from previous day:?? Fluid restriction ordered: 1.5 L Intake/Output Summary: (Last 24 hours) Intake/Output Summary (Last 24 hours) at 06/17/2018 1852 Last data filed at 06/17/2018 1759 Gross per 24 hour Intake 1244 ml Output 1550 ml Net -306 ml Is patient incontinent No Anticipated discharge date: 06/18 Discharge goals: daily weight, 1.5 FR Daily Assessment of Patient Stated Goals: Short Term Goal Identified by patient (Short Term=during hospitalization): Daily weight, 1.5 FR ER MAKER * Felisa Mcgill RN - 06/17/2018 6:47 PM MARKER MAKER Shift: Day NEWS Score: Pain:back pain, resolved with tylenol Nutrition:cardiac/ADA, good appetite GI/: voids, BM today Activity: X 1 assist with a walker to the commode Family: by the bedside Last Shower: Today New Events or Follow-up: plan of care, possible DC in AM ER MAKER * Chapincito Contreras MD - 06/17/2018 3:51 PM MARKER MAKER General Progress Note Name: Deborah Fields Today's Date: 06/17/2018 Admission Date: 06/01/2018 LOS: 16 days Assessment/Plan: Active Problems: Type 2 diabetes mellitus with circulatory disorder, without long-term 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 (HCC) PAF (paroxysmal atrial fibrillation) (HCC) Atrial fibrillation with rapid ventricular response (HCC) Chronic gastrointestinal bleeding HLD (hyperlipidemia) Essential hypertension Acute on chronic diastolic heart failure due to coronary artery disease (HCC) Morbid obesity (HCC) Interval: - Patient tolerating transition to PO lasix without acute issues today. Plan to discharge to rehab tomorrow morning. #Acute Hypercarbic& HypoxemicRespiratoryFailure (Improved) #L Pleural Effusion - d/t HCAP -CT chest (OSH):circumferentialLpleural effusion&densely consolidatedLbasew/air bronchograms - extubated 06/02 - currently on 2 L/NC, satting well, was discharged home on 04/08 on room air from HF service, but states she had 2L O2 prior to admission PLAN - Start Lasix 80mg PO BID - Continue 1.5 L Fluid restrict #Chronic CombinedHF #CAD, HTN -s/p CABG x 4 02/2018 - echo04/01: LVEF 55-60%, dilated RV with hypocontractility, severeRA enlargement,moderate TR, moderate LAenlargement, +intra-atrial PFO with bidirectional shunt, s/p left atrial appendage ligation - repeat echo 06/02/18: LVEF 50-55%, no regional wall motion abnormalities; RV mildly dilated but function probably normal; mild to moderate MR; mild to moderate TR; peak PAP 41 mmHg; no pericardial effusion - EKG:no ST changes - troponin negative x 2 - BNP 247 (prior 178) - INSPECTOR FABRIC lasix 40 mg daily, but then given IVF when hypotensive overnight PLAN -Continue INSPECTOR FABRIC ASA #Bradycardia; ChronicAfib/Flutter s/p Atrial Appendage Ligation - no INSPECTOR FABRIC ACd/trecurrent GIBs - received amiodarone load at OSH & continued on a drip --> dc'd 06/02 - EKG 06/03 AM: aflutter, rate 79, QTc 445 - EKG 06/04 PM: aflutter, rate 81, QTc 421 - HR as low as 40s overnight --> given atropine x 2, IVF, and started on dopamine drip --> able to wean off dopamine ~ 0200 PLAN -ContinuePTAmetoprololat reduced dose of 50 mg BID(INSPECTOR FABRIC dose is 100 mg BID) - Continue to hold INSPECTOR FABRIC diltiazem for bradycardia on 06/05 #GAVE #Transfusion-DependentAnemia - follows withKUGI - EGD1: 3 columns of smallEV,portal HTN gastropathy &mild GAVE - hgb 8.5 on 06/04 - plt 91 PLAN -ContinuePTA PPI - Transfuse for hemoglobin <7 #Liver Disease -c/bportalHTN, congestive colopathy, EV,GAVE&ascites - limited prior w/u; was to see hepatology in clinic in June - 02/2018: diffuse hepatic steatosis - EGD as above - MELD-Na 10 #Dysphagia - Moderate oropharyngeal dysphagia per COMMERCIAL INSURANCE UNDERWRITER - Corpak removed. pt aware of risk of aspiration - COMMERCIAL INSURANCE UNDERWRITER recs 06/05: Continue regular solids, thin liquids #DM2 -INSPECTOR FABRIC regimen:NPH 14 units Q AM, novolog 4 units TID - BS 110-160s last 24 hrs PLAN - continue 14U NPH daily + low dose correction factor #Hypothyroidism -TSH1.99 (06/01) PLAN -ContinuePTAsynthroid 175mcg daily FEN - Cardiac/diabetic diet, 1.5 L restriction - IVF: none - review electrolytes and replace as needed DVT PPx: SCDs; SQ heparin Code Status: Full Code Disposition/Family: Continue admission to Med 2, discharge to rehab tomorrow morning Patient seen and discussed with Dr. Cory Contreras MD Internal Medicine PGY-2 Pager: [phone] SubjectiveRepor Deborah Fields is a 62 y.o. female. No acute overnight events. Patient doing well today. She is happy about seeing wrinkles on her feet. Her BM's have returned to normal occurences and form. She reports her breathing feels much better today. She denies any further headaches. Medications Scheduled Meds: aspirin chewable tablet 81 mg 81 mg Oral QDAY dextran 70/hypromellose (NATURAL BALANCE TEARS) 0.1/0.3 % ophthalmic solution 1 drop 1 drop Both Eyes QID folic acid (FOLVITE) tablet 1 mg 1 mg Oral QDAY furosemide (LASIX) tablet 80 mg 80 mg Oral BID(-) heparin (porcine) PF syringe 5,000 Units 5,000 Units Subcutaneous Q8H insulin aspart U-100 (NOVOLOG FLEXPEN) injection PEN 0-7 Units 0-7 Units Subcutaneous ACHS insulin NPH (HUMULIN N KwikPen) injection PEN 14 Units 14 Units Subcutaneous QDAY() levothyroxine (SYNTHROID) tablet 175 mcg 175 mcg Oral QDAY() magnesium oxide (MAG-OX) tablet 400 mg 400 mg Oral BID melatonin tablet 3 mg 3 mg Oral QHS metoprolol tartrate (LOPRESSOR) tablet 50 mg 50 mg Oral BID pantoprazole DR (PROTONIX) tablet 40 mg 40 mg Oral BID(-) potassium chloride SR (K-DUR) tablet 20 mEq 20 mEq Oral QDAY() senna/docusate (SENOKOT-S) tablet 1 tablet 1 tablet Oral BID tiZANidine (ZANAFLEX) tablet 4 mg 4 mg Oral QHS vitamins, multiple tablet 1 tablet 1 tablet Oral QDAY Continuous Infusions: PRN and Respiratory Meds:acetaminophen Q6H PRN, albuterol 0.5% Q4H PRN, dextromethorphan/guaiFENesin Q4H PRN, ipratropium bromide Q4H PRN, polyethylene glycol 3350 BID PRN, prochlorperazine Q6H PRN, simethicone Q6H PRN, sodium chloride PRN, traMADol Q6H PRN Review of Systems: Constitutional: Negative Eyes: negative Ears, nose, mouth, throat, and face: negative Respiratory: -SOA Cardiovascular: -Chest pain Gastrointestinal: -Abd pain Genitourinary:negative Neurologic: negative Objective: Vital Signs: Last Filed Vital Signs: 24 Hour Range BP: 123/49 (06/17 1536) Temp: 37.1 C (98.8 F) (06/17 1536) Pulse: 106 (06/17 1536) Respirations: 20 PER MINUTE (06/17 1536) SpO2: 97 % (06/17 1536) O2 Delivery: Nasal Cannula (06/17 1536) BP: (102-123)/(47-71) Temp: [36.4 C (97.6 F)-37.1 C (98.8 F)] Pulse: [78-106] Respirations: [16 PER MINUTE-20 PER MINUTE] SpO2: [96 %-98 %] O2 Delivery: Nasal Cannula Intensity Pain Scale (Self Report): 3 (06/17/18 0845) Vitals: 06/16/18 0530 06/17/18 0450 06/17/18 0947 Weight: 126.3 kg (278 lb 7.1 oz) 122.9 kg (271 lb) 118.6 kg (261 lb 8 oz) Intake/Output Summary: (Last 24 hours) Intake/Output Summary (Last 24 hours) at 06/17/2018 1551 Last data filed at 06/17/2018 1537 Gross per 24 hour Intake 684 ml Output 1450 ml Net -766 ml Stool Occurrence: 0 Physical Exam General Appearance: Appears overweight well nourished, stated age and in no acute distress. PSYCH: Normal behavior, goal directed thinking, normal speech (rate and volume) HEENT: Normocephalic and atraumatic, mucous membranes moist. Sclera anicteric bilaterally. CV: S1 S2 RRR. No murmurs, rubs, clicks, gallops or S4. Distal extremities warm without cyanosis or clubbing. Radial pulses 2+ bilaterally and symmetric.Chest wall was tender to palpation in subxiphoid and epigastric region. PULM: No wheezes, rhonchi, increased effort of breathing, or diminished lung sounds in anterior lung bases. Rales auscultated in lower lung jennings bilaterally ABD: Soft, obese, mild TTP in epigastrium. EXT: 2+ pitting edema to BLE and 1+ to BUE (L>R) with wrinkling noted. No obvious deformity to BLE other than previously noted saphenous vein scarring. SKIN: Warm and dry to touch. Pallor noted. NEURO: Tone grossly normal, cranial nerves 2-12 grossly intact, tracks to voice. Alert and interactive. Lab Review 24-hour labs: Results for orders placed or performed during the hospital encounter of (from the past 24 hour(s)) POC GLUCOSE Collection Time: 06/16/18 5:44 PM Result Value Ref Range Glucose, POC 122 (H) 70 - 100 MG/DL POC GLUCOSE Collection Time: 06/16/18 10:17 PM Result Value Ref Range Glucose, POC 151 (H) 70 - 100 MG/DL POC GLUCOSE Collection Time: 06/17/18 3:19 AM Result Value Ref Range Glucose, POC 161 (H) 70 - 100 MG/DL CBC Collection Time: 06/17/18 5:48 AM Result Value Ref Range White Blood Cells 2.9 (L) 4.5 - 11.0 K/UL RBC 2.73 (L) 4.0 - 5.0 M/UL Hemoglobin 8.5 (L) 12.0 - 15.0 GM/DL Hematocrit 26.3 (L) 36 - 45 % MCV 96.3 80 - 100 FL MCH 31.3 26 - 34 PG MCHC 32.5 32.0 - 36.0 G/DL RDW 16.5 (H) 11 - 15 % Platelet Count 89 (L) 150 - 400 K/UL MPV 8.4 7 - 11 FL BASIC METABOLIC PANEL Collection Time: 01/03/19 5:48 AM Result Value Ref Range Sodium 139 137 - 147 MMOL/L Potassium 4.1 3.5 - 5.1 MMOL/L Chloride 97 (L) 98 - 110 MMOL/L CO2 37 (H) 21 - 30 MMOL/L Anion Gap 5 3 - 12 Glucose 136 (H) 70 - 100 MG/DL Blood Urea Nitrogen 19 7 - 25 MG/DL Creatinine 1.16 (H) 0.4 - 1.00 MG/DL Calcium 8.8 8.5 - 10.6 MG/DL eGFR Non 48 (L) >60 mL/min eGFR 58 (L) >60 mL/min MAGNESIUM Collection Time: 06/17/18 5:48 AM Result Value Ref Range Magnesium 1.9 1.6 - 2.6 mg/dL POC GLUCOSE Collection Time: 06/17/18 7:39 AM Result Value Ref Range Glucose, POC 112 (H) 70 - 100 MG/DL CBC Collection Time: 06/17/18 10:03 AM Result Value Ref Range White Blood Cells 3.7 (L) 4.5 - 11.0 K/UL RBC 2.75 (L) 4.0 - 5.0 M/UL Hemoglobin 8.5 (L) 12.0 - 15.0 GM/DL Hematocrit 26.6 (L) 36 - 45 % MCV 96.8 80 - 100 FL MCH 31.0 26 - 34 PG MCHC 32.1 32.0 - 36.0 G/DL RDW 16.9 (H) 11 - 15 % Platelet Count 114 (L) 150 - 400 K/UL MPV 8.6 7 - 11 FL POC GLUCOSE Collection Time: 06/17/18 1:08 PM Result Value Ref Range Glucose, POC 101 (H) 70 - 100 MG/DL Point of Care Testing (Last 24 hours) Glucose: (!) 136 (06/17/18 0542) POC Glucose (Download): (!) 101 (06/17/18 9727) Radiology and other Diagnostics Review: Pertinent radiology reviewed. Chapincito Contreras MD Pager [phone] ER MAKER Associated attestation - Amarilis Ray MD - 06/17/2018 4:53 PM MARKER MAKER ATTESTATION I personally performed the dempsey portions of the E/M visit, discussed case with Dr. Contreras and concur with his documentation of history, physical exam, assessment, and treatment plan unless otherwise noted. Much improved-> did desat off oxygen to 88% on RA, but doing well with 2L. Was on oxygen [employer]. Plan for dc to Rehab at [facility] tomorrow if stable. Staff name: Amarilis Ray MD Date: 06/17/2018 * Luna Pendleton, INSPECTOR FABRIC - 06/17/2018 10:56 AM MARKER MAKER PHYSICAL THERAPY PROGRESS NOTE MOBILITY: Mobility Progressive Mobility Level: Walk in hallway Distance Walked (feet): 50 ft(x 2) Level of Assistance: Assist X2 Assistive Device: Walker Time Tolerated: 11-30 minutes Activity Limited By: Weakness SUBJECTIVE: Subjective Significant hospital events: Reason for admission: respiratory failure - medically complex patient PMH: CAD, GI bleed, CABG, heart failure, afib, anemia , HTN, DM, CKD, hypothyroidism, morbid obesity, liver disease, HTN, congestive colopathy, ascites Mental / Cognitive Status: Alert;Oriented;Cooperative Persons Present: RehabTechnician;Spouse Pain: Patient complains of pain;Patient does not rate pain Pain Location: Left;Wrist(IV site) Pain Interventions: Patient agrees to participate in therapy with modifications to session(pt using ice for pain control) Comments: Pt was in bed and agreed to walk. She said she is hoping to go to rehab today. Comments: 2 liters oxygen Ambulation Assist: Independent Mobility at Household Level with Device Patient Owned Equipment: Roller Walker Home Situation: Lives with Family Type of Home: House Entry Stairs: Ramp In-Home Stairs: No Stairs BED MOBILITY/TRANSFERS: Bed Mobility/Transfers Bed Mobility: Supine to Sit: Minimal Assist;Head of Bed Elevated;Use of Rail; Assist with Trunk;Requires Extra Time Bed Mobility: Sit to Supine: Minimal Assist;Verbal Cues;Bed Flat;Assist with B LE Transfer Type: Sit to/from Stand Transfer: Assistance Level: To/From;Bed;Bed Side Chair;Minimal Assist Transfer: Assistive Device: Roller Walker(hand held going to the scale) Transfers: Type Of Assistance: Verbal Cues;For Safety Considerations End Of Activity Status: In Bed;Instructed Patient to Request Assist with Mobility;Instructed Patient to Use Call Light(bed in chair mode) GAIT: Gait Gait Distance: 50 feet(x 2: seated rest) Gait: Assistance Level: Minimal Assist;of 1st person;Standby Assist;of 2nd person;Management of Lines;Safety Considerations(hands on for safety/pt stated her knees buckle without warning) Gait: Assistive Device: Roller Walker;Wheelchair Follow Gait: Descriptors: Pace: Slow;Decreased step length;No balance loss Comments: oxygen saturation remained in the mid-upper 90's during activity on 2 liters of oxygen Activity Limited By: Weakness Comments: Pt was able to step onto the scale with hands on for safety. She was able to stand without UE support for approximately 30 seconds while the scale weighed her. ASSESSMENT/PROGRESS: Assessment/Progress Comments: Pt demonstrated an improvement to activity today. She is limited by decreased endurance and LE weakness. Pt would benefit from continued therapy in an inpatient setting. AM-PAC 6 Clicks Basic Mobility Inpatient Turning from your back to your side while in a flat bed without using bed rails : A Little Moving from lying on your back to sitting on the side of a flatbed without using bedrails : A Lot Moving to and from a bed to a chair (including a wheelchair): A Little Standing up from a chair using your arms (e.g. wheelchair, or bedside chair): A Little To walk in hospital room: A Little Climbing 3-5 steps with a railing: Total Raw Score: 15 Standardized (T-scale) Score: 36.97 Basic Mobility CMS 0-100%: 50.4 CMS G Code Modifier for Basic Mobility: CK GOALS: Goals Goal Formulation: With Patient Time For Goal Achievement: 5 days Pt Will Go Supine To/From Sit: w/ Stand By Assist Pt Will Transfer Bed/Chair: w/ Stand By Assist Pt Will Transfer Sit to Stand: w/ Stand By Assist Pt Will Ambulate: 1-10 Feet, w/ Walker, w/ Minimal Assist, Met *will update ambulation goal if pt does not discharge today PLAN: Plan Treatment Interventions: Mobility Training;Strengthening;Balance Activities Plan Frequency: 5 Days per Week PT Plan for Next Visit: *progress ambulation distance with chair follow RECOMMENDATIONS: PT Discharge Recommendations PT Discharge Recommendations: Inpatient Setting Therapist: Luna Pendleton, Physical therapist transition assistant Date: 06/17/2018 ER MAKER * Rosa Cline RN - 06/17/2018 7:39 AM MARKER MAKER Heart Failure Nursing Progress Note Admission Date: 06/01/2018 LOS: 16 days Admission Weight: 132 kg (291 lb 0.1 oz) Most recent weights (inpatient): Vitals: 06/15/18 0500 06/16/18 0530 06/17/18 0450 Weight: 122.1 kg (269 lb 2.9 oz) 126.3 kg (278 lb 7.1 oz) 122.9 kg (271 lb) Weight change from previous day:-3.4kg Fluid restriction ordered: 1500mL Intake/Output Summary: (Last 24 hours) Intake/Output Summary (Last 24 hours) at 06/17/2018 0534 Last data filed at 06/17/2018 0450 Gross per 24 hour Intake 1146 ml Output 1400 ml Net -254 ml Is patient incontinent No Anticipated discharge date: TBD Discharge goals: Decrease SOA on exertion. Daily Assessment of Patient Stated Goals: Short Term Goal Identified by patient (Short Term=during hospitalization): To get stronger. ER MAKER * Concepción Givens RN - 06/16/2018 6:08 PM MARKER MAKER Heart Failure Nursing Progress Note Admission Date: 06/01/2018 LOS: 15 days Admission Weight: 132 kg (291 lb 0.1 oz) Most recent weights (inpatient): Vitals: 06/14/18 1645 06/15/18 0500 06/16/18 0530 Weight: 115.5 kg (254 lb 10.1 oz) 122.1 kg (269 lb 2.9 oz) 126.3 kg (278 lb 7.1 oz) Weight change from previous day: Recent inaccurate weights, unable to assess weight gain/loss at this time. Fluid restriction ordered: 1.5L Intake/Output Summary: (Last 24 hours) Intake/Output Summary (Last 24 hours) at 06/16/2018 1808 Last data filed at 06/16/2018 1500 Gross per 24 hour Intake 662 ml Output 600 ml Net 62 ml Is patient incontinent No . Pt occasionally mixes urine/stool-unable to measure urine separately. Anticipated discharge date: TBD Discharge goals: Decrease shortness of breath on exertion. Daily Assessment of Patient Stated Goals: Short Term Goal Identified by patient (Short Term=during hospitalization): To get stronger ER MAKER * Surya Curry MD - 06/16/2018 4:40 PM MARKER MAKER General Progress Note Name: Deborah Fields Today's Date: 06/16/2018 Admission Date: 06/01/2018 LOS: 15 days Assessment/Plan: Active Problems: Type 2 diabetes mellitus with circulatory disorder, without long-term 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 (HCC) PAF (paroxysmal atrial fibrillation) (HCC) Atrial fibrillation with rapid ventricular response (HCC) Chronic gastrointestinal bleeding HLD (hyperlipidemia) Essential hypertension Acute on chronic diastolic heart failure due to coronary artery disease (HCC) Morbid obesity (HCC) Interval: -Patient felt better this morning than yesterday -BMs now 1x, less loose. -Would prefer PO lasix at this time, changing admin #Acute Hypercarbic& HypoxemicRespiratoryFailure (Improved) #L Pleural Effusion - d/t HCAP -CT chest (OSH):circumferentialLpleural effusion&densely consolidatedLbasew/air bronchograms - extubated 06/02 - currently on 2 L/NC, satting well, was discharged home on 04/08 on room air from HF service, but states she had 2L O2 prior to admission PLAN - Start Lasix 80mg PO BID - Continue 1.5 L Fluid restrict #Chronic CombinedHF #CAD, HTN -s/p CABG x 4 02/2018 - echo04/01: LVEF 55-60%, dilated RV with hypocontractility, severeRA enlargement,moderate TR, moderate LAenlargement, +intra-atrial PFO with bidirectional shunt, s/p left atrial appendage ligation - repeat echo 06/02/18: LVEF 50-55%, no regional wall motion abnormalities; RV mildly dilated but function probably normal; mild to moderate MR; mild to moderate TR; peak PAP 41 mmHg; no pericardial effusion - EKG:no ST changes - troponin negative x 2 - BNP 247 (prior 1,178) - INSPECTOR FABRIC lasix 40 mg daily, but then given IVF when hypotensive overnight PLAN -Continue INSPECTOR FABRIC ASA #Bradycardia; ChronicAfib/Flutter s/p Atrial Appendage Ligation - no INSPECTOR FABRIC ACd/trecurrent GIBs - received amiodarone load at OSH & continued on a drip --> dc'd 06/02 - EKG 06/03 AM: aflutter, rate 79, QTc 445 - EKG 06/04 PM: aflutter, rate 81, QTc 421 - HR as low as 40s overnight --> given atropine x 2, IVF, and started on dopamine drip --> able to wean off dopamine ~ 0200 PLAN -ContinuePTAmetoprololat reduced dose of 50 mg BID(INSPECTOR FABRIC dose is 100 mg BID) - Continue to hold INSPECTOR FABRIC diltiazem for bradycardia on 06/05 #GAVE #Transfusion-DependentAnemia - follows withKUGI - EGD1: 3 columns of smallEV,portal HTN gastropathy &mild GAVE - hgb 8.5 on 06/04 - plt 91 PLAN -ContinuePTA PPI - Transfuse for hemoglobin <7 #Liver Disease -c/bportalHTN, congestive colopathy, EV,GAVE&ascites - limited prior w/u; was to see hepatology in clinic in June - 02/2018: diffuse hepatic steatosis - EGD as above - MELD-Na 10 #Dysphagia - Moderate oropharyngeal dysphagia per COMMERCIAL INSURANCE UNDERWRITER - Corpak removed. pt aware of risk of aspiration - COMMERCIAL INSURANCE UNDERWRITER recs 06/05: Continue regular solids, thin liquids #DM2 -INSPECTOR FABRIC regimen:NPH 14 units Q AM, novolog 4 units TID - BS 110-160s last 24 hrs PLAN - continue 14U NPH daily + low dose correction factor #Hypothyroidism -TSH1.99 (06/01) PLAN -ContinuePTAsynthroid 175mcg daily FEN - Regular solids, thin liquids, swallow precautions, 1.5L restriction - tube feedings: dc'd - IVF: none - review electrolytes and replace as needed DVT PPx: SCDs; Heparin Code Status: Full Code Disposition/Family: Continue admission to [facility], pending rehab acceptance Patient seen and discussed with Dr. Cory Curry PGY-1 Pager [phone] SubjectiveRepor Deborah Fields is a 62 y.o. female. Today, patient much improved from yesterday. No events overnight. Patient states that she is unsure whether or not migraine cocktail helped. However, states that she has had the best night of sleep she has had since admission last night. Feels like hands and feet are more swollen. Denies headache, chest pain, abdominal pain or cramping today. BMs improved, 1x, more formed. Only getting up for stools Medications Scheduled Meds: aspirin chewable tablet 81 mg 81 mg Oral QDAY dextran 70/hypromellose (NATURAL BALANCE TEARS) 0.1/0.3 % ophthalmic solution 1 drop 1 drop Both Eyes QID folic acid (FOLVITE) tablet 1 mg 1 mg Oral QDAY furosemide (LASIX) tablet 80 mg 80 mg Oral BID(9-17) heparin (porcine) PF syringe 5,000 Units 5,000 Units Subcutaneous Q8H insulin aspart U-100 (NOVOLOG FLEXPEN) injection PEN 0-7 Units 0-7 Units Subcutaneous ACHS insulin NPH (HUMULIN N KwikPen) injection PEN 14 Units 14 Units Subcutaneous QDAY(07) levothyroxine (SYNTHROID) tablet 175 mcg 175 mcg Oral QDAY(07) magnesium oxide (MAG-OX) tablet 400 mg 400 mg Oral BID melatonin tablet 3 mg 3 mg Oral QHS metoprolol tartrate (LOPRESSOR) tablet 50 mg 50 mg Oral BID pantoprazole DR (PROTONIX) tablet 40 mg 40 mg Oral BID(11-21) potassium chloride SR (K-DUR) tablet 20 mEq 20 mEq Oral QDAY(12) senna/docusate (SENOKOT-S) tablet 1 tablet 1 tablet Oral BID tiZANidine (ZANAFLEX) tablet 4 mg 4 mg Oral QHS vitamins, multiple tablet 1 tablet 1 tablet Oral QDAY Continuous Infusions: PRN and Respiratory Meds:acetaminophen Q6H PRN, albuterol 0.5% Q4H PRN, dextromethorphan/guaiFENesin Q4H PRN, ipratropium bromide Q4H PRN, polyethylene glycol 3350 BID PRN, prochlorperazine Q6H PRN, simethicone Q6H PRN, sodium chloride PRN, traMADol Q6H PRN Review of Systems: Constitutional: Negative Eyes: negative Ears, nose, mouth, throat, and face: negative Respiratory: -SOA Cardiovascular: -Chest pain Gastrointestinal: -Abd pain, +loose stool Genitourinary:negative Neurologic: Headache Objective: Vital Signs: Last Filed Vital Signs: 24 Hour Range BP: 122/52 (06/16 1534) Temp: 36.4 C (97.6 F) (06/16 1534) Pulse: 83 (06/16 1534) Respirations: 20 PER MINUTE (06/16 1534) SpO2: 98 % (06/16 1534) O2 Delivery: Nasal Cannula (06/16 1534) BP: (90-149)/(36-64) Temp: [36.4 C (97.6 F)-37.2 C (98.9 F)] Pulse: [81-131] Respirations: [16 PER MINUTE-22 PER MINUTE] SpO2: [93 %-98 %] O2 Delivery: Nasal Cannula Intensity Pain Scale (Self Report): Asleep (06/16/18 1119) Vitals: 06/14/18 1645 06/15/18 0500 06/16/18 0530 Weight: 115.5 kg (254 lb 10.1 oz) 122.1 kg (269 lb 2.9 oz) 126.3 kg (278 lb 7.1 oz) Intake/Output Summary: (Last 24 hours) Intake/Output Summary (Last 24 hours) at 06/16/2018 1640 Last data filed at 06/16/2018 1500 Gross per 24 hour Intake 662 ml Output 600 ml Net 62 ml Stool Occurrence: 1 Physical Exam General Appearance: Appears overweight well nourished, stated age and in no acute distress. PSYCH: Normal behavior, goal directed thinking, normal speech (rate and volume) HEENT: Normocephalic and atraumatic, mucous membranes moist. Sclera anicteric bilaterally. CV: S1 S2 RRR. No murmurs, rubs, clicks, gallops or S4. Distal extremities warm without cyanosis or clubbing. Radial pulses 2+ bilaterally and symmetric.Chest wall was tender to palpation in subxiphoid and epigastric region. PULM: No wheezes, rhonchi, increased effort of breathing, or diminished lung sounds in anterior lung bases. Rales auscultated in lower lung jennings bilaterally ABD: Soft, obese, TTP in RUQ and Epigastric. EXT: 2+ pitting edema to BLE and 1+ to BUE (L>R) with wrinkling noted. No obvious deformity to BLE other than previously noted saphenous vein scarring. SKIN: Warm and dry to touch. Pallor noted. NEURO: Tone grossly normal, cranial nerves 2-12 grossly intact, tracks to voice. Alert and interactive. Lab Review 24-hour labs: Results for orders placed or performed during the hospital encounter of (from the past 24 hour(s)) POC GLUCOSE Collection Time: 06/15/18 6:03 PM Result Value Ref Range Glucose, POC 131 (H) 70 - 100 MG/DL POC GLUCOSE Collection Time: 06/15/18 8:28 PM Result Value Ref Range Glucose, POC 186 (H) 70 - 100 MG/DL CBC Collection Time: 06/16/18 6:39 AM Result Value Ref Range White Blood Cells 2.9 (L) 4.5 - 11.0 K/UL RBC 2.53 (L) 4.0 - 5.0 M/UL Hemoglobin 8.0 (L) 12.0 - 15.0 GM/DL Hematocrit 24.2 (L) 36 - 45 % MCV 96.0 80 - 100 FL MCH 31.5 26 - 34 PG MCHC 32.8 32.0 - 36.0 G/DL RDW 16.6 (H) 11 - 15 % Platelet Count 87 (L) 150 - 400 K/UL MPV 8.6 7 - 11 FL BASIC METABOLIC PANEL Collection Time: 06/16/18 6:39 AM Result Value Ref Range Sodium 139 137 - 147 MMOL/L Potassium 4.1 3.5 - 5.1 MMOL/L Chloride 97 (L) 98 - 110 MMOL/L CO2 37 (H) 21 - 30 MMOL/L Anion Gap 5 3 - 12 Glucose 119 (H) 70 - 100 MG/DL Blood Urea Nitrogen 20 7 - 25 MG/DL Creatinine 1.13 (H) 0.4 - 1.00 MG/DL Calcium 9.0 8.5 - 10.6 MG/DL eGFR Non 49 (L) >60 mL/min eGFR 59 (L) >60 mL/min MAGNESIUM Collection Time: 06/16/18 6:39 AM Result Value Ref Range Magnesium 2.0 1.6 - 2.6 mg/dL POC GLUCOSE Collection Time: 06/16/18 8:55 AM Result Value Ref Range Glucose, POC 110 (H) 70 - 100 MG/DL POC GLUCOSE Collection Time: 06/16/18 2:46 PM Result Value Ref Range Glucose, POC 105 (H) 70 - 100 MG/DL Point of Care Testing (Last 24 hours) Glucose: (!) 119 (06/16/18 0639) POC Glucose (Download): (!) 105 (06/16/18 1446) Radiology and other Diagnostics Review: Pertinent radiology reviewed. Surya Curry MD Pager [phone] ER MAKER Associated attestation - Aamrilis Ray MD - 06/16/2018 11:21 PM MARKER MAKER ATTESTATION I personally performed the dempsey portions of the E/M visit, discussed case with Dr. Curry and concur with his documentation of history, physical exam, assessment, and treatment plan unless otherwise noted. Pt doing better- would like to try oral diuretic. Cont inpt. [facility] to assess status tomorrow. Staff name: Amarilis Ray MD Date: 06/16/2018 * Ling Vieyra OTA - 06/16/2018 2:00 PM MARKER MAKER OCCUPATIONAL THERAPY PROGRESS NOTE Patient Name: Deborah Fields Room/Bed: [place] [address] Admitting Diagnosis: Resp failure Mobility Progressive Mobility Level: Active transfer to chair Level of Assistance: Assist X1 Assistive Device: Walker Time Tolerated: 11-30 minutes Subjective Pertinent Dx per Physician: PMH CAD s/p CABG 02/2018, HF, afib s/p L atrial appendage ligation not on AC d/t recurrent GIBs c/b transfusion-dependent anemia , liver disease c/b portal HTN, congestive colopathy, EV, GAVE & ascites. Admitted as transfer 06/01 after presenting there on 05/30 for syncope/fatigue. Admit c/b AMS/respiratory failure requiring intubation, afib w/ RVR & septic shock from HCAP + UTI. Extubated 06/02. Precautions: Falls;O2 Requirement Comments: 2L O2 NC Objective Psychosocial Status: Willing and Cooperative to Participate Persons Present: Spouse Home Living Type of Home: House Home Layout: One Level;Ramped Entrance Bathroom Shower / Tub: Walk-in Shower Home Equipment: Walker Prior Function Level Of [place]: Independent with ADLs and functional transfers Lives With: Spouse Receives Help From: None Needed Other Function Comments: Pt reports 2 recent falls in the bathroom, falling while trying to transfer off the toilet. ADL's Where Assessed: Edge of Bed Grooming Assist: Stand By Assist Grooming Deficits: Setup;Denture Care;Brushing Hair Toileting Assist: Moderate Assist Toileting Deficits: Perineal Hygiene;Bedside Commode Functional Transfer Assist: Minimal Assist Functional Transfer Deficits: Commode Transfer Comment: Patient sits edge of bed x15 minutes to complete grooming/hygiene task and rest following toileting. Sp02 remains in the 90's throughout session. Activity Tolerance Endurance: 3/5 Tolerates 25-30 Minutes Exercise w/Multiple Rests Sitting Balance: 2+/5 Supports Self w/ 1 UE Provided level 2 resistive band for UE strengthening and general endurance building. Patient demonstrates simple use. Educated on appropriate use i.e. extending arms versus short stretches in order to achieve quality movements. Cognition Overall Cognitive Status: WFL to Adequately Complete Self Care Tasks Safely AM-PAC 6 Clicks Daily Activity Inpatient Putting on and taking off regular lower body clothes?: Total Bathing (Including washing, rinsing, drying): A Lot Toileting, which includes using toilet, bedpan, or urinal: Total Putting on and taking off regular upper body clothing: A Lot Taking care of personal grooming such as brushing teeth: None Eating meals?: None Daily Activity Raw Score: 14 Standardized (t-scale) score: 33.39 CMS 0-100% Score: 59.67 CMS G Code Modifier: CK Plan OT Frequency: 5x/week OT Plan for Next Visit: standing ADLs at the sink ADL Goals Patient Will Perform Grooming: at Edge of Bed;in Chair;w/ Stand By Assist Patient Will Perform LE Dressing: w/ Minimum Assist Patient Will Perform Toileting: w/ Minimum Assist Functional Transfer Goals Pt Will Perform All Functional Transfers: Minimum Assist OT Discharge Recommendations OT Discharge Recommendations: Inpatient Setting, To address deficits, maximize function and improve safety. Recommend ongoing assistance for: In and out of house, Transfers, Bed mobility, Ambulation, Stairs Therapist: DORY Hernandez [id number] Date: 06/16/2018 ER MAKER * Luna Pendleton, INSPECTOR FABRIC - 06/16/2018 10:10 AM MARKER MAKER PHYSICAL THERAPY PROGRESS NOTE MOBILITY: Mobility Progressive Mobility Level: Stand Level of Assistance: Assist X1 Time Tolerated: 11-30 minutes Activity Limited By: Fatigue;Lethargy SUBJECTIVE: Subjective Significant hospital events: Reason for admission: respiratory failure - medically complex patient PMH: CAD, GI bleed, CABG, heart failure, afib, anemia , HTN, DM, CKD, hypothyroidism, morbid obesity, liver disease, HTN, congestive colopathy, ascites Mental / Cognitive Status: Alert;Cooperative Persons Present: Spouse Pain: Patient has no complaint of pain Pain Interventions: Patient agrees to participate in therapy Comments: Pt was in bed and voiced concern over the increase in hand edema. She stated she slept well overnight and still feels very tired. Pt reported an improvement in her abdominal pain. Comments: 2 liters oxygen Ambulation Assist: Independent Mobility at Household Level with Device Patient Owned Equipment: Roller Walker Home Situation: Lives with Family Type of Home: House Entry Stairs: Ramp In-Home Stairs: No Stairs BED MOBILITY/TRANSFERS: Bed Mobility/Transfers Bed Mobility: Supine to Sit: Minimal Assist;Head of Bed Elevated;Use of Rail; Assist with Trunk;Requires Extra Time(assist to scoot hips forward) Bed Mobility: Sit to Supine: Minimal Assist;Verbal Cues;Bed Flat;Assist with B LE Transfer Type: Sit to/from Stand Transfer: Assistance Level: To/From;Bed;Minimal Assist Transfer: Assistive Device: (hands on scale) Transfers: Type Of Assistance: Verbal Cues;For Strength Deficit;For Safety Considerations End Of Activity Status: In Bed;Instructed Patient to Request Assist with Mobility;Instructed Patient to Use Call Light ACTIVITY/EXERCISE: Activity / Exercise Sit Edge Of Bed: 15 minutes Sit Edge Of Bed Assist: Stand By Assist Activity Limited By: Complaint of Fatigue;Patient Choice(dizziness improved with prolonged time sitting) Comments: Pt was able to step onto/off the scale with hands on for safety. She was then able to side step to the HOB. ASSESSMENT/PROGRESS: Assessment/Progress Comments: Pt is limited by decreased activity tolerance/decreased endurance. Anticipate that pt has adequate strength/balance for short distance ambulation. AM-PAC 6 Clicks Basic Mobility Inpatient Turning from your back to your side while in a flat bed without using bed rails : A Little Moving from lying on your back to sitting on the side of a flatbed without using bedrails : A Lot Moving to and from a bed to a chair (including a wheelchair): A Little Standing up from a chair using your arms (e.g. wheelchair, or bedside chair): A Little To walk in hospital room: A Lot Climbing 3-5 steps with a railing: Total Raw Score: 14 Standardized (T-scale) Score: 35.55 Basic Mobility CMS 0-100%: 53.86 CMS G Code Modifier for Basic Mobility: CK GOALS: Goals Goal Formulation: With Patient Time For Goal Achievement: 5 days Pt Will Go Supine To/From Sit: w/ Stand By Assist Pt Will Transfer Bed/Chair: w/ Stand By Assist Pt Will Transfer Sit to Stand: w/ Stand By Assist Pt Will Ambulate: 1-10 Feet, w/ Walker, w/ Minimal Assist PLAN: Plan Treatment Interventions: Mobility Training;Strengthening;Balance Activities Plan Frequency: 5 Days per Week PT Plan for Next Visit: *bed mobility to simulate home *side stepping vs short distance ambulation with chair follow RECOMMENDATIONS: PT Discharge Recommendations PT Discharge Recommendations: Inpatient Setting Therapist: Luna Pendleton, Physical therapist transition assistant Date: 06/16/2018 ER MAKER * Catina Gupta RN - 06/16/2018 7:32 AM MARKER MAKER Heart Failure Nursing Progress Note Admission Date: 06/01/2018 LOS: 15 days Admission Weight: 132 kg (291 lb 0.1 oz) Most recent weights (inpatient): Vitals: 06/14/18 1645 06/15/18 0500 06/16/18 0530 Weight: 115.5 kg (254 lb 10.1 oz) 122.1 kg (269 lb 2.9 oz) 126.3 kg (278 lb 7.1 oz) Weight change from previous day: Inaccurate Weights; unable to assess weight gain or loss Fluid restriction ordered: Yes; 1.5L FR Intake/Output Summary: (Last 24 hours) Intake/Output Summary (Last 24 hours) at 06/16/2018 0732 Last data filed at 06/16/2018 0345 Gross per 24 hour Intake 440 ml Output 725 ml Net -285 ml Is patient incontinent No Anticipated discharge date: TBD Discharge goals: Decrease SOA Daily Assessment of Patient Stated Goals: Short Term Goal Identified by patient (Short Term=during hospitalization): Get stronger ER MAKER * Surya Curry MD - 06/15/2018 1:39 PM MARKER MAKER General Progress Note Name: Deborah Fields Today's Date: 06/15/2018 Admission Date: 06/01/2018 LOS: 14 days Assessment/Plan: Active Problems: Type 2 diabetes mellitus with circulatory disorder, without long-term 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 (HCC) PAF (paroxysmal atrial fibrillation) (HCC) Atrial fibrillation with rapid ventricular response (HCC) Chronic gastrointestinal bleeding HLD (hyperlipidemia) Essential hypertension Acute on chronic diastolic heart failure due to coronary artery disease (HCC) Morbid obesity (HCC) Interval: -Bloating with abd pain overnight, got simethicone x1 dose - Patient felt ill during rounds today, with headache, continued abd pain, fatigue, malaise. -Will hold lasix for now -Added benadryl, compazine for headache -Decreased senna/docusate due to loose stool. #Acute Hypercarbic& HypoxemicRespiratoryFailure (Improved) #L Pleural Effusion - d/t HCAP -CT chest (OSH):circumferentialLpleural effusion&densely consolidatedLbasew/air bronchograms - extubated 06/02 - currently on 2 L/NC, satting well, was discharged home on 04/08 on room air from HF service, but states she had 2L O2 prior to admission PLAN - Hold diuresis today. Patient had diamox yesterday and may have had decreased ICP resulting in headache. - Continue 1.5 L Fluid restrict #Chronic CombinedHF #CAD, HTN -s/p CABG x 4 02/2018 - echo04/01: LVEF 55-60%, dilated RV with hypocontractility, severeRA enlargement,moderate TR, moderate LAenlargement, +intra-atrial PFO with bidirectional shunt, s/p left atrial appendage ligation - repeat echo 06/02/18: LVEF 50-55%, no regional wall motion abnormalities; RV mildly dilated but function probably normal; mild to moderate MR; mild to moderate TR; peak PAP 41 mmHg; no pericardial effusion - EKG:no ST changes - troponin negative x 2 - BNP 247 (prior 1178) - INSPECTOR FABRIC lasix 40 mg daily, but then given IVF when hypotensive overnight PLAN -Continue INSPECTOR FABRIC ASA #Septic Shock(resolved) - arrived to on pressor, but essentially stopped immediately -central venous O2 sat 84% - SBP 100-140s #Bradycardia; ChronicAfib/Flutter s/p Atrial Appendage Ligation - no INSPECTOR FABRIC ACd/trecurrent GIBs - received amiodarone load at OSH & continued on a drip --> dc'd 06/02 - EKG 06/03 AM: aflutter, rate 79, QTc 445 - EKG 06/04 PM: aflutter, rate 81, QTc 421 - HR as low as 40s overnight --> given atropine x 2, IVF, and started on dopamine drip --> able to wean off dopamine ~ 0200 PLAN -ContinuePTAmetoprololat reduced dose of 50 mg BID(INSPECTOR FABRIC dose is 100 mg BID) - Continue to hold INSPECTOR FABRIC diltiazem for bradycardia on 06/05 #GAVE #Transfusion-DependentAnemia - follows with[facility]I - EGD1: 3 columns of smallEV,portal HTN gastropathy &mild GAVE - hgb 8.5 on 06/04 - plt 91 PLAN -ContinuePTA PPI - Transfuse for hemoglobin <7 #Liver Disease -c/bportalHTN, congestive colopathy, EV,GAVE&ascites - limited prior w/u; was to see hepatology in clinic in June - 02/2018: diffuse hepatic steatosis - EGD as above - MELD-Na 10 #Dysphagia - Moderate oropharyngeal dysphagia per COMMERCIAL INSURANCE UNDERWRITER - Corpak removed. pt aware of risk of aspiration - COMMERCIAL INSURANCE UNDERWRITER recs 06/05: Continue regular solids, thin liquids #Constipation-resolved - Increased Bowel regimen 06/09:senna/docusate and added MiraLax and 1x bicosadyl enema. -06/14: Good BM output at this time. #DELROY on CKD (resolved) - baseline Cr 1.3 - Cr 2.4 on arrival at OSH --> 1.3 by 06/06, around baseline since then - Will avoid nephrotoxins, renally dose meds, strict I/Os #DM2 -INSPECTOR FABRIC regimen:NPH 14 units Q AM, novolog 4 units TID - BS 110-160s last 24 hrs PLAN - continue 14U NPH daily + low dose correction factor #Hypothyroidism -TSH1.99 (06/01) PLAN -ContinuePTAsynthroid 175mcg daily #Septic Shock (resolved) #HCAP(resolved) #UTI(resolved) - WBC3.9;afebrile - hxresistant e.coli UTI - per OSH micro tech, no blood cxs were drawn - urine cx (OSH): + e.coli (resitant to cefazolin, ampicillin, levaquin, augmentin,cipro; sensitive to merrem, ceftriaxone & bactrim) - BAL 05/31(OSH): usual upper respiratory rob, tess species -CT chest (OSH): dense L base consolidation - blood cx06/01: NGTD - sputum cx 06/01: GS w/o organisms; cx NGTD - UA06/01: 1+ leuks, + nitrites, 20-50 WBC, few bacteria - urine cx06/02: < 100,000 tess albicans - strep pneumo and legionella urine Ags negative - procalcitonin0.22 (06/01) - no suitable pocket of ascites (on bedside US) for a paracentesis -ceftriaxone and doxycycline x 7 days (through 06/06) FEN - Regular solids, thin liquids, swallow precautions, 1.5L restriction - tube feedings: dc'd - IVF: none - review electrolytes and replace as needed DVT PPx: SCDs; Heparin Code Status: Full Code Disposition/Family: Continue admission to [facility], pending rehab acceptance Patient seen and discussed with Dr. Cory Curry PGY-1 Pager [phone] SubjectiveRepor Deborah Fields is a 62 y.o. female. Overnight, patient had abdominal pain with gas, received simethicone. When seen this morning, patient still with abdominal pain and similar epigastric/subxiphoid pain. Says GI cocktail the day prior had helped her symptoms somewhat and temporarily. Appetite has been poor. BMs have generally been soft, however last BM was loose. Mild headache at the time that improved a little with tylenol earlier in the day, but still present. Disappointed that she needed to remain in the hospital. Re-assessed patient during rounds and patient appeared more ill, stating headache worsened, continued right-sided and epigastric abdominal pain, unsure why she felt so bad. Sob felt a little worse. Patient was tearful during interview. Said headache was worst symptom at this time: felt like a "pulling" sensation over bilateral face without associated visual changes. Medications Scheduled Meds: aspirin chewable tablet 81 mg 81 mg Oral QDAY dextran 70/hypromellose (NATURAL BALANCE TEARS) 0.1/0.3 % ophthalmic solution 1 drop 1 drop Both Eyes QID folic acid (FOLVITE) tablet 1 mg 1 mg Oral QDAY heparin (porcine) PF syringe 5,000 Units 5,000 Units Subcutaneous Q8H insulin aspart U-100 (NOVOLOG FLEXPEN) injection PEN 0-7 Units 0-7 Units Subcutaneous ACHS insulin NPH (HUMULIN N KwikPen) injection PEN 14 Units 14 Units Subcutaneous QDAY(07) levothyroxine (SYNTHROID) tablet 175 mcg 175 mcg Oral QDAY(07) magnesium oxide (MAG-OX) tablet 400 mg 400 mg Oral BID melatonin tablet 3 mg 3 mg Oral QHS metoprolol tartrate (LOPRESSOR) tablet 50 mg [address] B[address] (PROTONIX) tablet 40 mg 40 mg Oral BID(-21) potassium chloride SR (K-DUR) tablet 20 mEq 20 mEq Oral QDAY(12) senna/docusate (SENOKOT-S) tablet 1 tablet 1 tablet Oral BID tiZANidine (ZANAFLEX) tablet 4 mg 4 mg Oral QHS vitamins, multiple tablet 1 tablet 1 tablet Oral QDAY Continuous Infusions: PRN and Respiratory Meds:acetaminophen Q6H PRN, albuterol 0.5% Q4H PRN, dextromethorphan/guaiFENesin Q4H PRN, ipratropium bromide Q4H PRN, polyethylene glycol 3350 BID PRN, prochlorperazine Q6H PRN, simethicone Q6H PRN, sodium chloride PRN, traMADol Q6H PRN Review of Systems: Constitutional: +tired, malaise Eyes: negative Ears, nose, mouth, throat, and face: negative Respiratory: +SOA Cardiovascular: +Chest pain Gastrointestinal: +Abd pain, +loose stool Genitourinary:negative Neurologic: Headache Objective: Vital Signs: Last Filed Vital Signs: 24 Hour Range BP: 139/60 (06/15 1199) Temp: 36.4 C (97.6 F) (06/15 1200) Pulse: 85 (06/15 125) Respirations: 22 PER MINUTE (06/15 1250) SpO2: 98 % (06/15 1250) O2 Delivery: Nasal Cannula (06/15 1199) BP: (129-139)/(45-60) Temp: [36.4 C (97.6 F)-37.1 C (98.8 F)] Pulse: [59-108] Respirations: [18 PER MINUTE-22 PER MINUTE] SpO2: [95 %-98 %] O2 Delivery: Nasal Cannula Intensity Pain Scale (Self Report): 8 (06/15/18 0418) Vitals: 06/14/18 1543 06/14/18 1645 06/15/18 0500 Weight: 85.8 kg (189 lb 2.5 oz) 115.5 kg (254 lb 10.1 oz) 122.1 kg (269 lb 2.9 oz) Intake/Output Summary: (Last 24 hours) Intake/Output Summary (Last 24 hours) at 06/15/2018 1339 Last data filed at 06/15/2018 1319 Gross per 24 hour Intake 250 ml Output 1300 ml Net -1050 ml Stool Occurrence: 1 Physical Exam General Appearance: Appears overweight well nourished, stated age and in moderate distress. PSYCH: Normal behavior, goal directed thinking, normal speech (rate and volume) HEENT: Normocephalic and atraumatic, mucous membranes moist. Sclera anicteric bilaterally. CV: S1 S2 RRR. No murmurs, rubs, clicks, gallops or S4. Distal extremities warm without cyanosis or clubbing. Radial pulses 2+ bilaterally and symmetric.Chest wall was tender to palpation in subxiphoid and epigastric region. PULM: No wheezes, rhonchi, increased effort of breathing, or diminished lung sounds in anterior lung bases. Rales auscultated in lower lung jennings bilaterally ABD: Soft, obese, TTP in RUQ and Epigastric. EXT: 2+ pitting edema to BLE and 1+ to BUE (L>R) with wrinkling noted. No obvious deformity to BLE other than previously noted saphenous vein scarring. SKIN: Warm and dry to touch. Pallor noted. NEURO: Tone grossly normal, cranial nerves 2-12 grossly intact, tracks to voice. Alert and interactive. Lab Review 24-hour labs: Results for orders placed or performed during the hospital encounter of (from the past 24 hour(s)) POC GLUCOSE Collection Time: 06/14/18 2:08 PM Result Value Ref Range Glucose, POC 119 (H) 70 - 100 MG/DL POC GLUCOSE Collection Time: 06/14/18 5:50 PM Result Value Ref Range Glucose, POC 169 (H) 70 - 100 MG/DL POC GLUCOSE Collection Time: 06/14/18 8:11 PM Result Value Ref Range Glucose, POC 223 (H) 70 - 100 MG/DL POC GLUCOSE Collection Time: 06/14/18 9:42 PM Result Value Ref Range Glucose, POC 181 (H) 70 - 100 MG/DL POC GLUCOSE Collection Time: 06/15/18 3:31 AM Result Value Ref Range Glucose, POC 153 (H) 70 - 100 MG/DL CBC Collection Time: 06/15/18 6:05 AM Result Value Ref Range White Blood Cells 4.6 4.5 - 11.0 K/UL RBC 2.92 (L) 4.0 - 5.0 M/UL Hemoglobin 9.2 (L) 12.0 - 15.0 GM/DL Hematocrit 28.0 (L) 36 - 45 % MCV 96.1 80 - 100 FL MCH 31.5 26 - 34 PG MCHC 32.8 32.0 - 36.0 G/DL RDW 16.4 (H) 11 - 15 % Platelet Count 103 (L) 150 - 400 K/UL MPV 9.2 7 - 11 FL BASIC METABOLIC PANEL Collection Time: 06/15/18 6:05 AM Result Value Ref Range Sodium 138 137 - 147 MMOL/L Potassium 4.4 3.5 - 5.1 MMOL/L Chloride 95 (L) 98 - 110 MMOL/L CO2 37 (H) 21 - 30 MMOL/L Anion Gap 6 3 - 12 Glucose 132 (H) 70 - 100 MG/DL Blood Urea Nitrogen 20 7 - 25 MG/DL Creatinine 1.19 (H) 0.4 - 1.00 MG/DL Calcium 9.7 8.5 - 10.6 MG/DL eGFR Non 46 (L) >60 mL/min eGFR 56 (L) >60 mL/min MAGNESIUM Collection Time: 06/15/18 6:05 AM Result Value Ref Range Magnesium 1.9 1.6 - 2.6 mg/dL POC GLUCOSE Collection Time: 06/15/18 8:25 AM Result Value Ref Range Glucose, POC 137 (H) 70 - 100 MG/DL POC GLUCOSE Collection Time: 06/15/18 11:59 AM Result Value Ref Range Glucose, POC 129 (H) 70 - 100 MG/DL Point of Care Testing (Last 24 hours) Glucose: (!) 132 (06/15/18 0605) POC Glucose (Download): (!) 129 (06/15/18 1159) Radiology and other Diagnostics Review: Pertinent radiology reviewed. Surya Curry MD Pager [phone] ER MAKER Associated attestation - Amarilis Ray MD - 06/15/2018 2:37 PM MARKER MAKER ATTESTATION I personally performed the dempsey portions of the E/M visit, discussed case with Dr. Curry and concur with his documentation of history, physical exam, assessment, and treatment plan unless otherwise noted. Clinically mixed picture as patient's labs look better but patient reports feeling worse since this morning. Her main complaints are of frontal bilateral headache this started yesterday evening and she is never had this type of headache before she has had severe headaches in the past that she would just let past. She is not feeling short of breath and her swelling is better her other complaint is some cramping in her bilateral right greater than left lower quadrants. She had a large loose bowel movement as noted and documented by Dr. Curry. Patient requested to limit labs for today and defers getting an arterial blood gas. We explained to her our concern and our options and she would like to proceed with a headache cocktail, holding diuretic this afternoon, and would prefer to avoid any further labs for today. We will respect patient's wishes but guarded as we shared with the patient and . I spent a total of 35 minutes in pt care today with an estimated 30 minutes spent counseling pt and coordinating care. Staff name: Amarilis Ray MD Date: 06/15/2018 * Sybil Perkins RT - 06/15/2018 12:56 PM MARKER MAKER RT Adult Assessment Note NAME:Deborah Fields :1955 AGE: 62 y.o. ADMISSION DATE: 06/01/2018 DAYS ADMITTED: LOS: 14 days RT Treatment Plan: Protocol Plan: Medications Albuterol/Ipratropium: Neb PRN Protocol Plan: Procedures IPPB: Place a nursing order for "IS Q1h While Awake" for any of Lung Expansion indicators Oxygen/Humidity: O2 to keep SpO2 > 92% Monitoring: Pulse oximetry BID & PRN Additional Comments: Impressions of the patient: Patient complaining of SOA, oxygenation 97% on 2 lpm (home reg) Intervention(s)/outcome(s): Breathing treatment given for slight wheeze in base , patient report no work of breathing change post treatment, fine crackles and wheezing still heard Patient education that was completed: breathing treatment education Recommendations to the care team: patient may need a recent CXR, Talked with THOMPSON Alarcon about patient, team aware of patient SOA. Will continue to follow patient on Respiratory protocol, ordered treatments PRN Vital Signs: Pulse: Pulse: 85 RR: Respirations: 22 PER MINUTE SpO2: SpO2: 98 % O2 Device: $$ O2 Device: Cannula Liter Flow: O2 Liter Flow: 2 lpm O2%: Breath Sounds: Respiratory Effort: Respiratory Effort: SOA (Short of Air);SOA (Short of Air) on Exertion(pt complaining of SOA) ER MAKER * Analia Bee RN - 06/15/2018 5:52 AM MARKER MAKER Heart Failure Nursing Progress Note Admission Date: 06/01/2018 LOS: 14 days Admission Weight: 132 kg (291 lb 0.1 oz) Most recent weights (inpatient): Vitals: 06/14/18 1543 06/14/18 1645 06/15/18 0500 Weight: 85.8 kg (189 lb 2.5 oz) 115.5 kg (254 lb 10.1 oz) 122.1 kg (269 lb 2.9 oz) Weight change from previous day: +7kg Fluid restriction ordered: 1.5L Intake/Output Summary: (Last 24 hours) Intake/Output Summary (Last 24 hours) at 06/15/2018 0552 Last data filed at 06/15/2018 0420 Gross per 24 hour Intake 370 ml Output 1400 ml Net -1030 ml Anticipated discharge date: 06/16/18 Discharge goals: decrease swelling Daily Assessment of Patient Stated Goals: Short Term Goal Identified by patient (Short Term=during hospitalization): Move better ER MAKER * Marii Anthony RN - 06/14/2018 5:00 PM MARKER MAKER Heart Failure Nursing Progress Note Admission Date: 06/01/2018 LOS: 13 days Admission Weight: 132 kg (291 lb 0.1 oz) Most recent weights (inpatient): Vitals: 06/14/18 0500 06/14/18 1543 06/14/18 1645 Weight: 133.7 kg (294 lb 12.1 oz) 85.8 kg (189 lb 2.5 oz) 115.5 kg (254 lb 10.1 oz) Weight change from previous day:unsure of weight accuracy Fluid restriction ordered: 1.5 L Intake/Output Summary: (Last 24 hours) Intake/Output Summary (Last 24 hours) at 06/14/2018 1700 Last data filed at 06/14/2018 1657 Gross per 24 hour Intake 480 ml Output 1450 ml Net -970 ml Is patient incontinent No Anticipated discharge date: tomorrow Discharge goals: overall health Daily Assessment of Patient Stated Goals: Short Term Goal Identified by patient (Short Term=during hospitalization): Get home ER MAKER * Marii Anthony RN - 06/14/2018 4:58 PM MARKER MAKER Shift: Day Mentation: alert and oriented x4 Cardiac: SR, a-fib, a-flutter. Chest pain relieved with GI cocktail Respiratory: 2L, SOA with exertion GI/: voids, BM today Nutrition: cardiac, ADA, 1.5 L fluid restriction Activity: up with assist x1 Pain: back pain resolved Family: at bedside Hygiene: self care with staff assist as needed Follow up: care plan on-going ER MAKER * Ling Vieyra OTA - 06/14/2018 1:30 PM MARKER MAKER OCCUPATIONAL THERAPY PROGRESS NOTE Patient Name: Deborah Fields Room/Bed: [place] [address] Admitting Diagnosis: Resp failure Subjective Pertinent Dx per Physician: PMH CAD s/p CABG 02/2018, HF, afib s/p L atrial appendage ligation not on AC d/t recurrent GIBs c/b transfusion-dependent anemia , liver disease c/b portal HTN, congestive colopathy, EV, GAVE & ascites. Admitted as transfer 06/01 after presenting there on 05/30 for syncope/fatigue. Admit c/b AMS/respiratory failure requiring intubation, afib w/ RVR & septic shock from HCAP + UTI. Extubated 06/02. Precautions: Falls;O2 Requirement Comments: 2L O2 NC Pain Location: (Chest pain) Objective Persons Present: Spouse;Nursing Staff Home Living Type of Home: House Home Layout: One Level;Ramped Entrance Bathroom Shower / Tub: Walk-in Shower Home Equipment: Walker Prior Function Level Of [place]: Independent with ADLs and functional transfers Lives With: Spouse Receives Help From: None Needed Other Function Comments: Pt reports 2 recent falls in the bathroom, falling while trying to transfer off the toilet. ADL's Where Assessed: Supine, Bed Grooming Assist: Stand By Assist Grooming Deficits: Setup;Wash/Dry Hands;Wash/Dry Face;Teeth Care;Denture Care Comment: Patient politely requests no out of bed activity at this time due to having chest pain (has had ongoing tachycardia today). Patient agreeable to complete grooming/hygiene in bed. Patient states she has already been up to the commode with nursing saff today and has stood on the standing scale. Activity Tolerance Endurance: 2/5 Tolerates 10-20 Minutes Exercise w/Multiple Rests AM-PAC 6 Clicks Daily Activity Inpatient Putting on and taking off regular lower body clothes?: Total Bathing (Including washing, rinsing, drying): A Lot Toileting, which includes using toilet, bedpan, or urinal: Total Putting on and taking off regular upper body clothing: A Lot Taking care of personal grooming such as brushing teeth: None Eating meals?: None Daily Activity Raw Score: 14 Standardized (t-scale) score: 33.39 CMS 0-100% Score: 59.67 CMS G Code Modifier: CK Plan OT Plan for next session: address lower body dressing, grooming/hygiene edge of bed ADL Goals Patient Will Perform Grooming: at Edge of Bed;in Chair;w/ Stand By Assist Patient Will Perform LE Dressing: w/ Minimum Assist Patient Will Perform Toileting: w/ Minimum Assist Functional Transfer Goals Pt Will Perform All Functional Transfers: Minimum Assist OT Discharge Recommendations OT Discharge Recommendations: Inpatient Setting Recommend ongoing assistance for: In and out of house, Transfers, Bed mobility, Ambulation, Stairs Therapist: DORY Hernandez [id number] Date: 06/14/2018 ER MAKER * Marii Anthony RN - 06/14/2018 1:14 PM MARKER MAKER 06/14/18 1220 Vitals Temp 36.9 C (98.5 F) Temperature Source Oral Pulse 86 Respirations 20 PER MINUTE SpO2 100 % O2 Delivery NC O2 Liter Flow 2 lpm BP 119/47 Mean NBP (Calculated) 71 MM HG BP Source Arm, Left Upper BP Patient Position Head of bed (Comment degree) Pt complaining of chest pain 5/5 and SOA. Possibly in a-flutter on tele. Team notified At bedside. ER MAKER * Surya Curry MD - 06/14/2018 11:01 AM MARKER MAKER General Progress Note Name: Deborah Fields Today's Date: 06/14/2018 Admission Date: 06/01/2018 LOS: 13 days Assessment/Plan: Active Problems: Type 2 diabetes mellitus with circulatory disorder, without long-term 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 (HCC) PAF (paroxysmal atrial fibrillation) (HCC) Atrial fibrillation with rapid ventricular response (HCC) Chronic gastrointestinal bleeding HLD (hyperlipidemia) Essential hypertension Acute on chronic diastolic heart failure due to coronary artery disease (HCC) Morbid obesity (HCC) Interval: - Patient with episode of chest pain around noon. Same quality as previous episodes, which have had negative troponin and EKG. Low suspicion for cardiac etiology. Possibly 2/2 GAVE/GI cause. Will attempt GI cocktail for symptomatic relief. -Bicarb mildly elevated. Will hold afternoon lasix, diamox instead. #Acute Hypercarbic& HypoxemicRespiratoryFailure (Improved) #L Pleural Effusion - d/t HCAP -CT chest (OSH):circumferentialLpleural effusion&densely consolidatedLbasew/air bronchograms - extubated 06/02 - currently on 2 L/NC, satting well, was discharged home on 04/08 on room air from HF service, but states she had 2L O2 prior to admission PLAN - Holding PM dose of lasix today, will give diamox 500 mg due to elevated bicarb. Likely resume lasix tomorrow. - Continue 1.5 L Fluid restrict #Chronic CombinedHF #CAD, HTN -s/p CABG x 4 02/2018 - echo04/01: LVEF 55-60%, dilated RV with hypocontractility, severeRA enlargement,moderate TR, moderate LAenlargement, +intra-atrial PFO with bidirectional shunt, s/p left atrial appendage ligation - repeat echo 06/02/18: LVEF 50-55%, no regional wall motion abnormalities; RV mildly dilated but function probably normal; mild to moderate MR; mild to moderate TR; peak PAP 41 mmHg; no pericardial effusion - EKG:no ST changes - troponin negative x 2 - BNP 247 (prior 178) - INSPECTOR FABRIC lasix 40 mg daily, but then given IVF when hypotensive overnight PLAN -Continue INSPECTOR FABRIC ASA #Septic Shock(resolved) - arrived to on pressor, but essentially stopped immediately -central venous O2 sat 84% - hypotensive overnight and briefly on dopamine (d/t bradycardia) -- off since ~ 0200 - SBP 100-140s #Bradycardia; ChronicAfib/Flutter s/p Atrial Appendage Ligation - no INSPECTOR FABRIC ACd/trecurrent GIBs - received amiodarone load at OSH & continued on a drip --> dc'd 06/02 - EKG 06/03 AM: aflutter, rate 79, QTc 445 - EKG 06/04 PM: aflutter, rate 81, QTc 421 - HR as low as 40s overnight --> given atropine x 2, IVF, and started on dopamine drip --> able to wean off dopamine ~ 0200 PLAN -ContinuePTAmetoprololat reduced dose of 50 mg BID(INSPECTOR FABRIC dose is 100 mg BID) - Continue to hold INSPECTOR FABRIC diltiazem for bradycardia on 06/05 #GAVE #Transfusion-DependentAnemia - follows withKUGI - EGD1: 3 columns of smallEV,portal HTN gastropathy &mild GAVE - hgb 8.5 on 06/04 - plt 91 PLAN -06/14: Giving GI cocktail and assess for improvement of symptoms. -ContinuePTA PPI - Transfuse for hemoglobin <7 #Liver Disease -c/bportalHTN, congestive colopathy, EV,GAVE&ascites - limited prior w/u; was to see hepatology in clinic in June - 02/2018: diffuse hepatic steatosis - EGD as above - MELD-Na 10 #Dysphagia - Moderate oropharyngeal dysphagia per COMMERCIAL INSURANCE UNDERWRITER - Corpak removed. pt aware of risk of aspiration - COMMERCIAL INSURANCE UNDERWRITER recs 06/05: Continue regular solids, thin liquids #Constipation-resolved - Increased Bowel regimen 06/09:senna/docusate and added MiraLax and 1x bicosadyl enema. -06/14: Good BM output at this time. #DELROY on CKD (resolved) - baseline Cr 1.3 - Cr 2.4 on arrival at OSH --> 1.3 this AM 06/06 - Will avoid nephrotoxins, renally dose meds, strict I/Os #DM2 -INSPECTOR FABRIC regimen:NPH 14 units Q AM, novolog 4 units TID - BS 110-160s last 24 hrs PLAN - continue 14U NPH daily + low dose correction factor #Hypothyroidism -TSH1.99 (06/01) PLAN -ContinuePTAsynthroid 175mcg daily #Septic Shock (resolved) #HCAP(resolved) #UTI(resolved) - WBC3.9;afebrile - hxresistant e.coli UTI - per OSH micro tech, no blood cxs were drawn - urine cx (OSH): + e.coli (resitant to cefazolin, ampicillin, levaquin, augmentin,cipro; sensitive to merrem, ceftriaxone & bactrim) - BAL 05/31(OSH): usual upper respiratory rob, tess species -CT chest (OSH): dense L base consolidation - blood cx06/01: NGTD - sputum cx 06/01: GS w/o organisms; cx NGTD - UA06/01: 1+ leuks, + nitrites, 20-50 WBC, few bacteria - urine cx06/02: < 100,000 tess albicans - strep pneumo and legionella urine Ags negative - procalcitonin0.22 (06/01) - no suitable pocket of ascites (on bedside US) for a paracentesis -ceftriaxone and doxycycline x 7 days (through 06/06) FEN - Regular solids, thin liquids, swallow precautions, 1.5L restriction - tube feedings: dc'd - IVF: none - review electrolytes and replace as needed DVT PPx: SCDs; Heparin Code Status: Full Code Disposition/Family: Continue admission to [facility], pending rehab acceptance Patient seen and discussed with Dr. Cory Curry PGY-1 Pager [phone] SubjectiveRepor Deborah Fields is a 62 y.o. female. No acute events overnight. Patient endorses some abdominal pain today. Last meal last night, 2 BMs in the past day. Also endorses poor appetite. States tongue feels painful, similar to last episode of thrush. Patient would like to discharge home, but understands that insurance is pending and [facility] won't accept this. Okay to go to rehab. Patient had an episode of chest pain around noon today. States it started approximately 45 minutes prior to my evaluation. Pain is sub-xiphoid; patient has tenderness to palpation in that location, but states that the tenderness feels different from her current pain. Pain is similar to prior episodes. Denies excessive anxiety. Denies any exacerbating factors. States that it usually improves with transfusions. Medications Scheduled Meds: aspirin chewable tablet 81 mg 81 mg Oral QDAY dextran 70/hypromellose (NATURAL BALANCE TEARS) 0.1/0.3 % ophthalmic solution 1 drop 1 drop Both Eyes QID folic acid (FOLVITE) tablet 1 mg 1 mg Oral QDAY furosemide (LASIX) injection 40 mg 40 mg Intravenous BID(-) heparin (porcine) PF syringe 5,000 Units 5,000 Units Subcutaneous Q8H insulin aspart U-100 (NOVOLOG FLEXPEN) injection PEN 0-7 Units 0-7 Units Subcutaneous ACHS insulin NPH (HUMULIN N KwikPen) injection PEN 14 Units 14 Units Subcutaneous QDAY() levothyroxine (SYNTHROID) tablet 175 mcg 175 mcg Oral QDAY() magnesium oxide (MAG-OX) tablet 400 mg 400 mg Oral BID metoprolol tartrate (LOPRESSOR) tablet 50 mg 50 mg Oral BID pantoprazole DR (PROTONIX) tablet 40 mg 40 mg Oral BID(-) potassium chloride SR (K-DUR) tablet 20 mEq 20 mEq Oral QDAY() senna/docusate (SENOKOT-S) tablet 2 tablet 2 tablet Oral BID tiZANidine (ZANAFLEX) tablet 4 mg 4 mg Oral QHS vitamins, multiple tablet 1 tablet 1 tablet Oral QDAY Continuous Infusions: PRN and Respiratory Meds:acetaminophen Q6H PRN, dextromethorphan/guaiFENesin Q4H PRN, polyethylene glycol 3350 BID PRN, prochlorperazine Q6H PRN, sodium chloride PRN, traMADol Q6H PRN Review of Systems: Constitutional: +tired Eyes: negative Ears, nose, mouth, throat, and face: negative Respiratory: Negative Cardiovascular: +Chest pain Gastrointestinal: +Abd pain Genitourinary:negative Neurologic: Negative Objective: Vital Signs: Last Filed Vital Signs: 24 Hour Range BP: 129/52 (06/14 845) Temp: 36.7 C (98 F) (06/14 845) Pulse: 83 (06/14 852) Respirations: 18 PER MINUTE (06/14 852) SpO2: 97 % (06/14 852) O2 Delivery: Nasal Cannula (06/14 845) BP: (108-147)/(49-72) Temp: [36.3 C (97.4 F)-37.7 C (99.8 F)] Pulse: [72-132] Respirations: [18 PER MINUTE-22 PER MINUTE] SpO2: [92 %-100 %] O2 Delivery: Nasal Cannula Intensity Pain Scale (Self Report): 2 (06/14/18 0814) Vitals: 06/12/18 0500 06/13/18 0500 06/14/18 0500 Weight: 136 kg (299 lb 13.2 oz) 133.7 kg (294 lb 12.1 oz) 133.7 kg (294 lb 12.1 oz) Intake/Output Summary: (Last 24 hours) Intake/Output Summary (Last 24 hours) at 06/14/2018 1101 Last data filed at 06/14/2018 0918 Gross per 24 hour Intake 992 ml Output 2450 ml Net -1458 ml Stool Occurrence: 0 Physical Exam General Appearance: Appears overweight well nourished, stated age and in no distress. PSYCH: Normal behavior, goal directed thinking, normal speech (rate and volume) HEENT: Normocephalic and atraumatic, mucous membranes moist. Sclera anicteric bilaterally. CV: S1 S2 RRR. No murmurs, rubs, clicks, gallops or S4. Distal extremities warm without cyanosis or clubbing. Radial pulses 2+ bilaterally and symmetric. On re- exam, chest wall was tender to palpation in subxiphoid and epigastric region. PULM: No wheezes, rhonchi, increased effort of breathing, or diminished lung sounds in anterior lung bases. ABD: Soft, obese, TTP in RUQ and Periumbilical. EXT: 2+ pitting edema to BLE and 1+ to BUE (L>R) with wrinkling noted. No obvious deformity to BLE other than previously noted saphenous vein scarring. SKIN: Warm and dry to touch. Pallor noted. NEURO: Tone grossly normal, cranial nerves 2-12 grossly intact, tracks to voice. Alert and interactive. Lab Review 24-hour labs: Results for orders placed or performed during the hospital encounter of (from the past 24 hour(s)) MAGNESIUM Collection Time: 06/13/18 11:40 AM Result Value Ref Range Magnesium 1.7 1.6 - 2.6 mg/dL CBC Collection Time: 06/13/18 11:40 AM Result Value Ref Range White Blood Cells 4.1 (L) 4.5 - 11.0 K/UL RBC 2.79 (L) 4.0 - 5.0 M/UL Hemoglobin 8.7 (L) 12.0 - 15.0 GM/DL Hematocrit 26.9 (L) 36 - 45 % MCV 96.5 80 - 100 FL MCH 31.1 26 - 34 PG MCHC 32.3 32.0 - 36.0 G/DL RDW 16.7 (H) 11 - 15 % Platelet Count 113 (L) 150 - 400 K/UL MPV 8.6 7 - 11 FL BASIC METABOLIC PANEL Collection Time: 06/13/18 11:40 AM Result Value Ref Range Sodium 139 137 - 147 MMOL/L Potassium 4.1 3.5 - 5.1 MMOL/L Chloride 96 (L) 98 - 110 MMOL/L CO2 39 (H) 21 - 30 MMOL/L Anion Gap 4 3 - 12 Glucose 134 (H) 70 - 100 MG/DL Blood Urea Nitrogen 27 (H) 7 - 25 MG/DL Creatinine 1.17 (H) 0.4 - 1.00 MG/DL Calcium 9.6 8.5 - 10.6 MG/DL eGFR Non 47 (L) >60 mL/min eGFR 57 (L) >60 mL/min POC GLUCOSE Collection Time: 06/13/18 11:42 AM Result Value Ref Range Glucose, POC 124 (H) 70 - 100 MG/DL POC GLUCOSE Collection Time: 06/13/18 4:35 PM Result Value Ref Range Glucose, POC 144 (H) 70 - 100 MG/DL POC GLUCOSE Collection Time: 06/13/18 8:21 PM Result Value Ref Range Glucose, POC 156 (H) 70 - 100 MG/DL POC GLUCOSE Collection Time: 06/14/18 3:33 AM Result Value Ref Range Glucose, POC 197 (H) 70 - 100 MG/DL POC GLUCOSE Collection Time: 06/14/18 7:48 AM Result Value Ref Range Glucose, POC 157 (H) 70 - 100 MG/DL CBC Collection Time: 06/14/18 7:49 AM Result Value Ref Range White Blood Cells 3.0 (L) 4.5 - 11.0 K/UL RBC 2.44 (L) 4.0 - 5.0 M/UL Hemoglobin 7.8 (L) 12.0 - 15.0 GM/DL Hematocrit 23.6 (L) 36 - 45 % MCV 96.7 80 - 100 FL MCH 32.0 26 - 34 PG MCHC 33.1 32.0 - 36.0 G/DL RDW 16.7 (H) 11 - 15 % Platelet Count 91 (L) 150 - 400 K/UL MPV 8.4 7 - 11 FL BASIC METABOLIC PANEL Collection Time: 06/14/18 7:49 AM Result Value Ref Range Sodium 139 137 - 147 MMOL/L Potassium 4.0 3.5 - 5.1 MMOL/L Chloride 96 (L) 98 - 110 MMOL/L CO2 40 (H) 21 - 30 MMOL/L Anion Gap 3 3 - 12 Glucose 154 (H) 70 - 100 MG/DL Blood Urea Nitrogen 23 7 - 25 MG/DL Creatinine 1.10 (H) 0.4 - 1.00 MG/DL Calcium 9.3 8.5 - 10.6 MG/DL eGFR Non 51 (L) >60 mL/min eGFR >60 >60 mL/min MAGNESIUM Collection Time: 06/14/18 7:49 AM Result Value Ref Range Magnesium 1.8 1.6 - 2.6 mg/dL CHEM 7 ADD ON Collection Time: 06/14/18 7:49 AM Result Value Ref Range Total Protein 5.8 (L) 6.0 - 8.0 G/DL Total Bilirubin 0.7 0.3 - 1.2 MG/DL Albumin 2.6 (L) 3.5 - 5.0 G/DL Alk Phosphatase 45 25 - 110 U/L AST (SGOT) 18 7 - 40 U/L ALT (SGPT) 4 (L) 7 - 56 U/L Point of Care Testing (Last 24 hours) Glucose: (!) 154 (06/14/18 9337) POC Glucose (Download): (!) 157 (06/14/18 5354) Radiology and other Diagnostics Review: Pertinent radiology reviewed. Surya Curry MD Pager [phone] ER MAKER Associated attestation - Amarilis Ray MD - 06/14/2018 5:09 PM MARKER MAKER ATTESTATION I personally performed the dempsey portions of the E/M visit, discussed case with Dr. Curry and concur with his documentation of history, physical exam, assessment, and treatment plan unless otherwise noted. Pt with c/o sore tongue and intermittent atypical chest pain. Also with progressive alkalosis. Low threshold to check abg, as pt has h/o CO2 retention. Mixed picture regarding if alkalosis is due to contraction. BUN and Cr ok. Wt fluctuating-> 254# now ( unclear accuracy)- await dc planning, but ocnt inpt until safe dc plan in place. Staff name: Amarilis Ray MD Date: 06/14/2018 * Luna Pendleton PTA - 06/14/2018 11:00 AM MARKER MAKER PHYSICAL THERAPY PROGRESS NOTE MOBILITY: Mobility Progressive Mobility Level: Stand Level of Assistance: Assist X2(for safety only) Assistive Device: Walker Time Tolerated: 11-30 minutes Activity Limited By: Dizziness;Fatigue;Weakness SUBJECTIVE: Subjective Significant hospital events: Reason for admission: respiratory failure - medically complex patient PMH: CAD, GI bleed, CABG, heart failure, afib, anemia , HTN, DM, CKD, hypothyroidism, morbid obesity, liver disease, HTN, congestive colopathy, ascites Mental / Cognitive Status: Alert;Cooperative;Anxious Persons Present: RehabTechnician;Spouse Pain: Patient complains of pain;Patient does not rate pain Pain Location: Abdomen Pain Interventions: Patient agrees to participate in therapy;Treatment altered to patient's pain tolerance Comments: Pt was in bed and stated she needed a standing weight. She reported feeling fatigued. Comments: 2 liters oxygen Ambulation Assist: Independent Mobility at Household Level with Device Patient Owned Equipment: Roller Walker Home Situation: Lives with Family Type of Home: House Entry Stairs: Ramp In-Home Stairs: No Stairs BED MOBILITY/TRANSFERS: Bed Mobility/Transfers Bed Mobility: Supine to Sit: Minimal Assist;Head of Bed Elevated;Use of Rail; Assist with Trunk Bed Mobility: Sit to Supine: Moderate Assist;Verbal Cues;Bed Flat;Assist with B LE Transfer Type: Stand Pivot Transfer: Assistance Level: Bed;To/From;Commode;x2 People(hands on for safety only due to report of dizziness) Transfer: Assistive Device: Roller Walker Transfers: Type Of Assistance: Verbal Cues;For Safety Considerations Other Transfer Type: Sit to/from Stand Other Transfer: Assistance Level: To/From;Bed;Commode;x2 People(hands on for safety due to report of dizziness) Other Transfer: Assistive Device: Hand Hold Assist Other Transfer: Type Of Assistance: Verbal Cues;For Balance;For Safety Considerations End Of Activity Status: In Bed;Instructed Patient to Request Assist with Mobility;Instructed Patient to Use Call Light Comments: assist x 2 for safety considerations due to report of dizziness. GAIT: Gait Comments: pt took several steps between the bed and commode and was able to take a step up onto the scale. Activity Limited By: Complaint of Fatigue;Complaint of Dizziness;Weakness;SOA Comments: Pt reported feeling SOA and dizzy through the session. Saturations ranged between 90-94 and HR fluctuated between upper 80's to lower 90's. ASSESSMENT/PROGRESS: Assessment/Progress Comments: Pt is limited by deconditioning and decreased strength. Anticipate pt would benefit from continued therapy in an inpatient setting. AM-PAC 6 Clicks Basic Mobility Inpatient Turning from your back to your side while in a flat bed without using bed rails : A Little Moving from lying on your back to sitting on the side of a flatbed without using bedrails : A Lot Moving to and from a bed to a chair (including a wheelchair): A Little Standing up from a chair using your arms (e.g. wheelchair, or bedside chair): A Little To walk in hospital room: A Lot Climbing 3-5 steps with a railing: Total Raw Score: 14 Standardized (T-scale) Score: 35.55 Basic Mobility CMS 0-100%: 53.86 CMS G Code Modifier for Basic Mobility: CK GOALS: Goals Goal Formulation: With Patient Time For Goal Achievement: 5 days Pt Will Go Supine To/From Sit: w/ Stand By Assist Pt Will Transfer Bed/Chair: w/ Stand By Assist Pt Will Transfer Sit to Stand: w/ Stand By Assist Pt Will Ambulate: 1-10 Feet, w/ Walker, w/ Minimal Assist PLAN: Plan Treatment Interventions: Mobility Training;Strengthening;Balance Activities Plan Frequency: 5 Days per Week PT Plan for Next Visit: *short distance ambulation with chair follow RECOMMENDATIONS: PT Discharge Recommendations PT Discharge Recommendations: Inpatient Setting Therapist: Luna Pendleton, Physical therapist transition assistant Date: 06/14/2018 ER MAKER * Leslee Scott RN - 06/14/2018 6:51 AM MARKER MAKER Heart Failure Nursing Progress Note Admission Date: 06/01/2018 LOS: 13 days Admission Weight: 132 kg (291 lb 0.1 oz) Most recent weights (inpatient): Vitals: 06/12/18 0500 06/13/18 0500 06/14/18 0500 Weight: 136 kg (299 lb 13.2 oz) 133.7 kg (294 lb 12.1 oz) 133.7 kg (294 lb 12.1 oz) Weight change from previous day: None Fluid restriction ordered: 1.5 L Intake/Output Summary: (Last 24 hours) Intake/Output Summary (Last 24 hours) at 06/14/2018 0652 Last data filed at 06/14/2018 0438 Gross per 24 hour Intake 1232 ml Output 2850 ml Net -1618 ml Is patient incontinent No Anticipated discharge date: 06/16 Discharge goals: To go to rehab ER MAKER * Leslee Scott RN - 06/14/2018 6:30 AM MARKER MAKER Shift: Night Mentation: A/O X 4 Cardiac: Was ST 130s, now is a. fib rate controlled Respiratory: 2L NC; Continuous pulse ox; SOB on exertion GI/: Voids; last BM 06/13 Nutrition: Cardiac/ADA diet with 1.5 L fluid restriction Activity: Assist X 1 with walker; Q2 turns Pain: Patient c/o chest and back pain. Patient desires no intervention Family: at bedside Follow up: Discharge plan ongoing ER MAKER * Leslee Soctt RN - 06/13/2018 8:34 PM MARKER MAKER Patients c/o chest pain. HR was in 130s. IV metoprolol given. Patients HR is now 100-110. MD surgical appliances salesperson notified. No new orders at this time. Will continue to assess and monitor patient. ER MAKER * Estrella Whiteside RN - 06/13/2018 7:19 PM MARKER MAKER EKG this evening showing HR in 130's as sinus tachycardia. Med 2 paged a little earlier and came straight over to assess patient after RN reviewing telemetry and noticing tachycardia since 1700. Pt also SOA on E. IV metoprolol ordered. ER MAKER * Estrella Whiteside RN - 06/13/2018 6:38 PM MARKER MAKER Heart Failure Nursing Progress Note Admission Date: 06/01/2018 LOS: 12 days Admission Weight: 132 kg (291 lb 0.1 oz) Most recent weights (inpatient): Vitals: 06/10/18 0346 06/12/18 0500 06/13/18 0500 Weight: 135.4 kg (298 lb 6.4 oz) 136 kg (299 lb 13.2 oz) 133.7 kg (294 lb 12.1 oz) Weight change from previous day: lost 2.3 kg Fluid restriction ordered: 1500 Intake/Output Summary: (Last 24 hours) Intake/Output Summary (Last 24 hours) at 06/13/2018 1838 Last data filed at 06/13/2018 1709 Gross per 24 hour Intake 1722 ml Output 3050 ml Net -1328 ml Is patient incontinent No Anticipated discharge date: 05/15 Discharge goals: To go home. Daily Assessment of Patient Stated Goals: Short Term Goal Identified by patient (Short Term=during hospitalization): Pt is extremely SOA, especially with exertion. However, oxygen requirement not going up. Pt has LE, 2-3+, is getting IV lasix BID, is having output, is abiding by fluid restriction. Pt HR 130's with activity. Pt also complains of extreme fatigue. ER MAKER * Chapincito Contreras MD - 06/13/2018 2:57 PM MARKER MAKER General Progress Note Name: Deborah Fields Today's Date: 06/13/2018 Admission Date: 06/01/2018 LOS: 12 days Assessment/Plan: Active Problems: Type 2 diabetes mellitus with circulatory disorder, without long-term 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 (HCC) PAF (paroxysmal atrial fibrillation) (HCC) Atrial fibrillation with rapid ventricular response (HCC) Chronic gastrointestinal bleeding HLD (hyperlipidemia) Essential hypertension Acute on chronic diastolic heart failure due to coronary artery disease (HCC) Morbid obesity (HCC) Interval: - Continue Lasix to 40mg IV BID. Will need to watch CO2 level closely as it continues to trend up. #Acute Hypercarbic& HypoxemicRespiratoryFailure (Improved) #L Pleural Effusion - d/t HCAP -CT chest (OSH):circumferentialLpleural effusion&densely consolidatedLbasew/air bronchograms - extubated 06/02 - currently on 2 L/NC, satting well, was discharged home on 04/08 on room air from HF service, but states she had 2L O2 prior to admission PLAN - Continue lasix IV 40 mg BID - Continue 1.5 L Fluid restrict #Chronic CombinedHF #CAD, HTN -s/p CABG x 4 02/2018 - echo04/01: LVEF 55-60%, dilated RV with hypocontractility, severeRA enlargement,moderate TR, moderate LAenlargement, +intra-atrial PFO with bidirectional shunt, s/p left atrial appendage ligation - repeat echo 06/02/18: LVEF 50-55%, no regional wall motion abnormalities; RV mildly dilated but function probably normal; mild to moderate MR; mild to moderate TR; peak PAP 41 mmHg; no pericardial effusion - EKG:no ST changes - troponin negative x 2 - BNP 247 (prior 178) - INSPECTOR FABRIC lasix 40 mg daily, but then given IVF when hypotensive overnight PLAN -Continue INSPECTOR [employer] ASA #Septic Shock(resolved) - arrived to on pressor, but essentially stopped immediately -central venous O2 sat 84% - hypotensive overnight and briefly on dopamine (d/t bradycardia) -- off since ~ 0200 - SBP 100-140s #Bradycardia; ChronicAfib/Flutter s/p Atrial Appendage Ligation - no INSPECTOR FAB[employer]IC ACd/trecurrent GIBs - received amiodarone load at OSH & continued on a drip --> dc'd 06/02 - EKG 06/03 AM: aflutter, rate 79, QTc 445 - EKG 06/04 PM: aflutter, rate 81, QTc 421 - HR as low as 40s overnight --> given atropine x 2, IVF, and started on dopamine drip --> able to wean off dopamine ~ 0200 PLAN -ContinuePTAmetoprololat reduced dose of 50 mg BID(INSPECTOR FABRIC dose is 100 mg BID) - Continue to hold INSPECTOR FAB[employer]IC diltiazem for bradycardia on 06/05 #GAVE #Transfusion-DependentAnemia - follows withKUGI - EGD1: 3 columns of smallEV,portal HTN gastropathy &mild GAVE - hgb 8.5 on 06/04 --> stable ~7.4 - plt 107 PLAN -ContinuePTA PPI - Transfuse for hemoglobin <7 #Liver Disease -c/bportalHTN, congestive colopathy, EV,GAVE&ascites - limited prior w/u; was to see hepatology in clinic in June - 02/2018: diffuse hepatic steatosis - EGD as above - MELD-Na 10 #Dysphagia - Moderate oropharyngeal dysphagia per COMMERCIAL INSURANCE UNDERWRITER - Corpak removed. pt aware of risk of aspiration - COMMERCIAL INSURANCE UNDERWRITER recs 06/05: Continue regular solids, thin liquids #Constipation - Increased Bowel regimen 06/09:senna/docusate and added MiraLax and 1x bicosadyl enema. - 06/11: poor BM output. Refused 1x Miralax, will attempt again #DELROY on CKD (resolved) - baseline Cr 1.3 - Cr 2.4 on arrival at OSH --> 1.3 this AM 06/06 - Will avoid nephrotoxins, renally dose meds, strict I/Os #DM2 -INSPECTOR FAB[employer]IC regimen:NPH 14 units Q AM, novolog 4 units TID - BS 110-160s last 24 hrs PLAN - continue 14U NPH daily + low dose correction factor #Hypothyroidism -TSH1.99 (06/01) PLAN -ContinuePTAsynthroid 175mcg daily #Septic Shock (resolved) #HCAP(resolved) #UTI(resolved) - WBC3.9;afebrile - hxresistant e.coli UTI - per OSH micro tech, no blood cxs were drawn - urine cx (OSH): + e.coli (resitant to cefazolin, ampicillin, levaquin, augmentin,cipro; sensitive to merrem, ceftriaxone & bactrim) - BAL 05/31(OSH): usual upper respiratory orb, tess species -CT chest (OSH): dense L base consolidation - blood cx06/01: NGTD - sputum cx 06/01: GS w/o organisms; cx NGTD - UA06/01: 1+ leuks, + nitrites, 20-50 WBC, few bacteria - urine cx06/02: < 100,000 tess albicans - strep pneumo and legionella urine Ags negative - procalcitonin0.22 (06/01) - no suitable pocket of ascites (on bedside US) for a paracentesis -ceftriaxone and doxycycline x 7 days (through 06/06) FEN - Regular solids, thin liquids, swallow precautions, 1.5L restriction - tube feedings: dc'd - IVF: none - review electrolytes and replace as needed DVT PPx: SCDs; Heparin Code Status: Full Code Disposition/Family: Continue admission to med 2, pending rehab acceptance Patient seen and discussed with Dr. Cory Contreras MD Internal Medicine PGY-2 Pager: [phone] SubjectiveRepor Deborah Fields is a 62 y.o. female. No acute events overnight. Patient had another episode of chest pain last night prior to bed that was associated with increased anxiety. She reports mild improvement with Atarax. Patient continues to have good BM's. Her breathing is doing well, she has no issues with that at this time. Denies light-headedness, dizziness, cough, SOB, abdominal pain, constipation, diarrhea. Medications Scheduled Meds: aspirin chewable tablet 81 mg 81 mg Oral QDAY dextran 70/hypromellose (NATURAL BALANCE TEARS) 0.1/0.3 % ophthalmic solution 1 drop 1 drop Both Eyes QID folic acid (FOLVITE) tablet 1 mg 1 mg Oral QDAY furosemide (LASIX) injection 40 mg 40 mg Intravenous BID(03-01) heparin (porcine) PF syringe 5,000 Units 5,000 Units Subcutaneous Q8H insulin aspart U-100 (NOVOLOG FLEXPEN) injection PEN 0-7 Units 0-7 Units Subcutaneous ACHS insulin NPH (HUMULIN N KwikPen) injection PEN 14 Units 14 Units Subcutaneous QDAY() levothyroxine (SYNTHROID) tablet 175 mcg 175 mcg Oral QDAY(07) magnesium oxide (MAG-OX) tablet 400 mg 400 mg Oral BID magnesium sulfate 1 g/D5W 100 mL IVPB 1 g Intravenous Q1H X 2DO metoprolol tartrate (LOPRESSOR) tablet 50 mg 50 mg Oral BID pantoprazole DR (PROTONIX) tablet 40 mg 40 mg Oral BID(11-21) potassium chloride SR (K-DUR) tablet 20 mEq 20 mEq Oral QDAY(12) senna/docusate (SENOKOT-S) tablet 2 tablet 2 tablet Oral BID tiZANidine (ZANAFLEX) tablet 4 mg 4 mg Oral QHS vitamins, multiple tablet 1 tablet 1 tablet Oral QDAY Continuous Infusions: PRN and Respiratory Meds:acetaminophen Q6H PRN, dextromethorphan/guaiFENesin Q4H PRN, polyethylene glycol 3350 BID PRN, prochlorperazine Q6H PRN, sodium chloride PRN, traMADol Q6H PRN Review of Systems: Constitutional: +Tired (improved) Eyes: negative Ears, nose, mouth, throat, and face: negative Respiratory: Negative Cardiovascular: +Chest pain Gastrointestinal:Negative Genitourinary:negative Integument/breast: negative Neurologic: Negative Objective: Vital Signs: Last Filed Vital Signs: 24 Hour Range BP: 133/72 (06/13 1201) Temp: 36.3 C (97.4 F) (06/13 1201) Pulse: 77 (06/13 1249) Respirations: 18 PER MINUTE (06/13 1249) SpO2: 97 % (06/13 1249) O2 Delivery: Nasal Cannula (06/13 1201) BP: (103-154)/(49-72) Temp: [36.3 C (97.4 F)-37 C (98.6 F)] Pulse: [72-125] Respirations: [16 PER MINUTE-22 PER MINUTE] SpO2: [95 %-98 %] O2 Delivery: Nasal Cannula Intensity Pain Scale (Self Report): 5 (06/13/18 0350) Vitals: 06/10/18 0346 06/12/18 0500 06/13/18 0500 Weight: 135.4 kg (298 lb 6.4 oz) 136 kg (299 lb 13.2 oz) 133.7 kg (294 lb 12.1 oz) Intake/Output Summary: (Last 24 hours) Intake/Output Summary (Last 24 hours) at 06/13/2018 1457 Last data filed at 06/13/2018 1400 Gross per 24 hour Intake 1312 ml Output 2700 ml Net -1388 ml Stool Occurrence: 1 Physical Exam General Appearance: Appears overweight well nourished, stated age and in no distress. PSYCH: Normal behavior, goal directed thinking, normal speech (rate and volume) HEENT: Normocephalic and atraumatic, mucous membranes moist. Sclera anicteric bilaterally. CV: S1 S2 RRR. No murmurs, rubs, clicks, gallops or S4. Distal extremities warm without cyanosis or clubbing. Radial pulses 2+ bilaterally and symmetric PULM: No wheezes, rhonchi, increased effort of breathing, or diminished lung sounds in anterior lung bases. ABD: Soft, obese, NTTP. EXT: 2+ pitting edema to BLE and 1+ to BUE (L>R). No obvious deformity to BLE other than previously noted saphenous vein scarring. SKIN: Warm and dry to touch. Pallor noted. NEURO: Tone grossly normal, cranial nerves 2-12 grossly intact, tracks to voice. Alert and interactive. Lab Review 24-hour labs: Results for orders placed or performed during the hospital encounter of (from the past 24 hour(s)) POC GLUCOSE Collection Time: 06/12/18 6:21 PM Result Value Ref Range Glucose, POC 118 (H) 70 - 100 MG/DL POC GLUCOSE Collection Time: 06/12/18 9:13 PM Result Value Ref Range Glucose, POC 115 (H) 70 - 100 MG/DL POC GLUCOSE Collection Time: 06/13/18 3:48 AM Result Value Ref Range Glucose, POC 111 (H) 70 - 100 MG/DL POC GLUCOSE Collection Time: 06/13/18 8:48 AM Result Value Ref Range Glucose, POC 95 70 - 100 MG/DL MAGNESIUM Collection Time: 06/13/18 11:40 AM Result Value Ref Range Magnesium 1.7 1.6 - 2.6 mg/dL CBC Collection Time: 06/13/18 11:40 AM Result Value Ref Range White Blood Cells 4.1 (L) 4.5 - 11.0 K/UL RBC 2.79 (L) 4.0 - 5.0 M/UL Hemoglobin 8.7 (L) 12.0 - 15.0 GM/DL Hematocrit 26.9 (L) 36 - 45 % MCV 96.5 80 - 100 FL MCH 31.1 26 - 34 PG MCHC 32.3 32.0 - 36.0 G/DL RDW 16.7 (H) 11 - 15 % Platelet Count 113 (L) 150 - 400 K/UL MPV 8.6 7 - 11 FL BASIC METABOLIC PANEL Collection Time: 06/13/18 11:40 AM Result Value Ref Range Sodium 139 137 - 147 MMOL/L Potassium 4.1 3.5 - 5.1 MMOL/L Chloride 96 (L) 98 - 110 MMOL/L CO2 39 (H) 21 - 30 MMOL/L Anion Gap 4 3 - 12 Glucose 134 (H) 70 - 100 MG/DL Blood Urea Nitrogen 27 (H) 7 - 25 MG/DL Creatinine 1.17 (H) 0.4 - 1.00 MG/DL Calcium 9.6 8.5 - 10.6 MG/DL eGFR Non 47 (L) >60 mL/min eGFR 57 (L) >60 mL/min POC GLUCOSE Collection Time: 06/13/18 11:42 AM Result Value Ref Range Glucose, POC 124 (H) 70 - 100 MG/DL Point of Care Testing (Last 24 hours) Glucose: (!) 134 (06/13/18 1140) POC Glucose (Download): (!) 124 (06/13/18 1142) Radiology and other Diagnostics Review: Pertinent radiology reviewed. Chapincito Contreras MD Pager [phone] ER MAKER Associated attestation - Amarilis Ray MD - 06/13/2018 4:00 PM MARKER MAKER ATTESTATION I personally performed the dempsey portions of the E/M visit, discussed case with Dr. Contreras and concur with his documentation of history, physical exam, assessment, and treatment plan unless otherwise noted. I spent a total of 35 minutes in pt care today with an estimated 30 minutes spent counseling pt and coordinating care. Patient very frustrated and growing inpatient. She was hopeful to be discharged soon and while she understands it takes time for insurance approval and things to get arranged she is at her wits end. Dr. Javier and I explained to her our hope that social work will be able to make arrangements with [facility] which is the patient's facility of choice. We will continue to diurese her with IV diuretics while inpatient but will transition to oral diuretics on discharge. Patient again stated that her good weight is 235. Need to obtain a standing weight if possible. Continue current plan. Staff name: Amarilis Ray MD Date: 06/13/2018 * Analia Bee RN - 06/13/2018 6:16 AM MARKER MAKER Heart Failure Nursing Progress Note Admission Date: 06/01/2018 LOS: 12 days Admission Weight: 132 kg (291 lb 0.1 oz) Most recent weights (inpatient): Vitals: 06/10/18 0346 06/12/18 0500 06/13/18 0500 Weight: 135.4 kg (298 lb 6.4 oz) 136 kg (299 lb 13.2 oz) 133.7 kg (294 lb 12.1 oz) Weight change from previous day: -3kg Fluid restriction ordered: 1.5 Intake/Output Summary: (Last 24 hours) Intake/Output Summary (Last 24 hours) at 06/13/2018 0616 Last data filed at 06/13/2018 0500 Gross per 24 hour Intake 1210 ml Output 1750 ml Net -540 ml Anticipated discharge date: ongoing Discharge goals: decrease fluid Daily Assessment of Patient Stated Goals: Short Term Goal Identified by patient (Short Term=during hospitalization): Move more ER MAKER * Adelaida Calderon RN - 06/12/2018 6:48 PM MARKER MAKER Patient c/o new acid reflux/chest pain. HR sinus tachy 115 - low 120's. Other VSS. Notified physician. New order given for GI cocktail/heating pad. Will continue to monitor and assess. ER MAKER * Surya Curry MD - 06/12/2018 2:16 PM MARKER MAKER General Progress Note Name: Deborah Fields Today's Date: 06/12/2018 Admission Date: 06/01/2018 LOS: 11 days Assessment/Plan: Active Problems: Type 2 diabetes mellitus with circulatory disorder, without long-term 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 (HCC) PAF (paroxysmal atrial fibrillation) (HCC) Atrial fibrillation with rapid ventricular response (HCC) Chronic gastrointestinal bleeding HLD (hyperlipidemia) Essential hypertension Acute on chronic diastolic heart failure due to coronary artery disease (HCC) Morbid obesity (HCC) Interval: -Continue Lasix to 40mg IV BID #Acute Hypercarbic& HypoxemicRespiratoryFailure (Improved) #L Pleural Effusion - d/t HCAP -CT chest (OSH):circumferentialLpleural effusion&densely consolidatedLbasew/air bronchograms - extubated 06/02 - currently on 2 L/NC, satting well, was discharged home on 04/08 on room air from HF service, but states she had 2L O2 prior to admission PLAN - Increased lasix to IV 40 mg BID -Continue 1.5 L Fluid restrict #Chronic CombinedHF #CAD, HTN -s/p CABG x 4 02/2018 - echo04/01: LVEF 55-60%, dilated RV with hypocontractility, severeRA enlargement,moderate TR, moderate LAenlargement, +intra-atrial PFO with bidirectional shunt, s/p left atrial appendage ligation - repeat echo 06/02/18: LVEF 50-55%, no regional wall motion abnormalities; RV mildly dilated but function probably normal; mild to moderate MR; mild to moderate TR; peak PAP 41 mmHg; no pericardial effusion - EKG:no ST changes - troponin negative x 2 - BNP 247 (prior 178) - INSPECTOR [employer]IC lasix 40 mg daily, but then given IVF when hypotensive overnight PLAN -continue INSPECTOR FAB[employer]IC ASA #Septic Shock(resolved) - arrived to on pressor, but essentially stopped immediately -central venous O2 sat 84% - hypotensive overnight and briefly on dopamine (d/t bradycardia) -- off since ~ 0200 - SBP 100-140s #Bradycardia; ChronicAfib/Flutter s/p Atrial Appendage Ligation - no INSPECTOR FABRIC ACd/trecurrent GIBs - received amiodarone load at OSH & continued on a drip --> dc'd 06/02 - EKG 06/03 AM: aflutter, rate 79, QTc 445 - EKG 06/04 PM: aflutter, rate 81, QTc 421 - HR as low as 40s overnight --> given atropine x 2, IVF, and started on dopamine drip --> able to wean off dopamine ~ 0200 PLAN -continuePTAmetoprololat reduced dose of 50 mg BID(INSPECTOR FABRIC dose is 100 mg BID) -hold INSPECTOR FABRIC diltiazem for bradycardia on 06/05 #GAVE #Transfusion-DependentAnemia - follows withKUGI - EGD1: 3 columns of smallEV,portal HTN gastropathy &mild GAVE - hgb 8.5 on 06/04 --> stable ~7.4 - plt 107 PLAN -continuePTA PPI - Transfuse for hemoglobin <7 #Liver Disease -c/bportalHTN, congestive colopathy, EV,GAVE&ascites - limited prior w/u; was to see hepatology in clinic in June - 02/2018: diffuse hepatic steatosis - EGD as above - MELD-Na 10 #Dysphagia - Moderate oropharyngeal dysphagia per COMMERCIAL INSURANCE UNDERWRITER - Corpak removed. pt aware of risk of aspiration - COMMERCIAL INSURANCE UNDERWRITER recs 06/05: Continue regular solids, thin liquids #Constipation -Increased Bowel regimen 06/09:senna/docusate and added MiraLax and 1x bicosadyl enema. -06/11: poor BM output. Refused 1x Miralax, will attempt again #DELROY on CKD (resolved) - baseline Cr 1.3 - Cr 2.4 on arrival at OSH --> 1.3 this AM 06/06 - Will avoid nephrotoxins, renally dose meds, strict I/Os #DM2 -INSPECTOR FABRIC regimen:NPH 14 units Q AM, novolog 4 units TID - BS 110-160s last 24 hrs PLAN - continue 14U NPH daily + low dose correction factor #Hypothyroidism -TSH1.99 (06/01) PLAN -continuePTAsynthroid 175mcg daily #Septic Shock (resolved) #HCAP(resolved) #UTI(resolved) - WBC3.9;afebrile - hxresistant e.coli UTI - per OSH micro tech, no blood cxs were drawn - urine cx (OSH): + e.coli (resitant to cefazolin, ampicillin, levaquin, augmentin,cipro; sensitive to merrem, ceftriaxone & bactrim) - BAL 05/31(OSH): usual upper respiratory rob, tess species -CT chest (OSH): dense L base consolidation - blood cx06/01: NGTD - sputum cx 06/01: GS w/o organisms; cx NGTD - UA06/01: 1+ leuks, + nitrites, 20-50 WBC, few bacteria - urine cx06/02: < 100,000 tess albicans - strep pneumo and legionella urine Ags negative - procalcitonin0.22 (06/01) - no suitable pocket of ascites (on bedside US) for a paracentesis -ceftriaxone and doxycycline x 7 days (through 06/06) FEN - Regular solids, thin liquids, swallow precautions, 1.5L restriction - tube feedings: dc'd - IVF: none - review electrolytes and replace as needed DVT PPx: SCDs; Heparin Code Status: Full Code Disposition/Family: Continue admission to med 2, pending rehab acceptance Patient seen and discussed with Dr. Cory Curry PGY-1 Pager [phone] SubjectiveRepor Deborah Fields is a 62 y.o. female. No acute events overnight. Patient denies new episodes of chest pain or abdominal pain. Denies headache. SOB with mild improvement, patient laying near flat without significant difficulty. Patient has had 2 large bowel movements. Has gotten up to commode, but not significantly moving much on her own. Improved feeling of tiredness today Medications Scheduled Meds: aspirin chewable tablet 81 mg 81 mg Oral QDAY dextran 70/hypromellose (NATURAL BALANCE TEARS) 0.1/0.3 % ophthalmic solution 1 drop 1 drop Both Eyes QID folic acid (FOLVITE) tablet 1 mg 1 mg Oral QDAY furosemide (LASIX) injection 40 mg 40 mg Intravenous BID(03-01) heparin (porcine) PF syringe 5,000 Units 5,000 Units Subcutaneous Q8H insulin aspart U-100 (NOVOLOG FLEXPEN) injection PEN 0-7 Units 0-7 Units Subcutaneous ACHS insulin NPH (HUMULIN N KwikPen) injection PEN 14 Units 14 Units Subcutaneous QDAY(07) levothyroxine (SYNTHROID) tablet 175 mcg 175 mcg Oral QDAY(07) magnesium oxide (MAG-OX) tablet 400 mg 400 mg Oral BID metoprolol tartrate (LOPRESSOR) tablet 50 mg 50 mg Oral BID pantoprazole DR (PROTONIX) tablet 40 mg 40 mg Oral BID(11-21) potassium chloride SR (K-DUR) tablet 20 mEq 20 mEq Oral QDAY(12) senna/docusate (SENOKOT-S) tablet 2 tablet 2 tablet Oral BID tiZANidine (ZANAFLEX) tablet 4 mg 4 mg Oral QHS vitamins, multiple tablet 1 tablet 1 tablet Oral QDAY Continuous Infusions: PRN and Respiratory Meds:acetaminophen Q6H PRN, dextromethorphan/guaiFENesin Q4H PRN, polyethylene glycol 3350 BID PRN, prochlorperazine Q6H PRN, sodium chloride PRN, traMADol Q6H PRN Review of Systems: Constitutional: +Tired (improved) Eyes: negative Ears, nose, mouth, throat, and face: negative Respiratory: Negative Cardiovascular: -Chest pain Gastrointestinal:Negative Genitourinary:negative Integument/breast: negative Neurologic: Negative Objective: Vital Signs: Last Filed Vital Signs: 24 Hour Range BP: 119/54 (06/12 1200) Temp: 36.4 C (97.5 F) (06/12 1200) Pulse: 82 (06/12 1200) Respirations: 18 PER MINUTE (06/12 1200) SpO2: 98 % (06/12 1200) O2 Delivery: Nasal Cannula (06/12 1200) BP: (92-151)/(48-79) Temp: [36.4 C (97.5 F)-37 C (98.6 F)] Pulse: [81-118] Respirations: [18 PER MINUTE-24 PER MINUTE] SpO2: [92 %-98 %] O2 Delivery: Nasal Cannula Intensity Pain Scale (Self Report): 5 (06/12/18 0915) Vitals: 06/09/18 0600 06/10/18 0346 06/12/18 0500 Weight: 133.8 kg (295 lb) 135.4 kg (298 lb 6.4 oz) 136 kg (299 lb 13.2 oz) Intake/Output Summary: (Last 24 hours) Intake/Output Summary (Last 24 hours) at 06/12/2018 1416 Last data filed at 06/12/2018 1222 Gross per 24 hour Intake 880 ml Output 1100 ml Net -220 ml Stool Occurrence: 0 Physical Exam General Appearance: Appears overweight well nourished, stated age and in no distress. PSYCH: Normal behavior, goal directed thinking, normal speech (rate and volume) HEENT: Normocephalic and atraumatic, mucous membranes moist. Sclera anicteric bilaterally. CV: S1 S2 RRR. No murmurs, rubs, clicks, gallops or S4. Distal extremities warm without cyanosis or clubbing. Radial pulses 2+ bilaterally and symmetric PULM:No wheezes, rhonchi, increased effort of breathing or diminished lung sounds in anterior lung bases. ABD: Soft, obese, NTTP. EXT: 2+ pitting edema to BLE and 1+ to BUE (L>R). No obvious deformity to BLE other than previously noted saphenous vein scarring. SKIN: Warm and dry to touch. Pallor noted. NEURO: Tone grossly normal, cranial nerves 2-12 grossly intact, tracks to voice. Alert and interactive. Lab Review 24-hour labs: Results for orders placed or performed during the hospital encounter of (from the past 24 hour(s)) POC GLUCOSE Collection Time: 06/11/18 5:43 PM Result Value Ref Range Glucose, POC 151 (H) 70 - 100 MG/DL POC GLUCOSE Collection Time: 06/11/18 9:46 PM Result Value Ref Range Glucose, POC 149 (H) 70 - 100 MG/DL POC GLUCOSE Collection Time: 06/12/18 3:36 AM Result Value Ref Range Glucose, POC 148 (H) 70 - 100 MG/DL CBC Collection Time: 06/12/18 6:52 AM Result Value Ref Range White Blood Cells 4.2 (L) 4.5 - 11.0 K/UL RBC 2.57 (L) 4.0 - 5.0 M/UL Hemoglobin 8.0 (L) 12.0 - 15.0 GM/DL Hematocrit 24.8 (L) 36 - 45 % MCV 96.2 80 - 100 FL MCH 31.2 26 - 34 PG MCHC 32.4 32.0 - 36.0 G/DL RDW 16.8 (H) 11 - 15 % Platelet Count 103 (L) 150 - 400 K/UL MPV 8.7 7 - 11 FL BASIC METABOLIC PANEL Collection Time: 06/12/18 6:52 AM Result Value Ref Range Sodium 137 137 - 147 MMOL/L Potassium 4.5 3.5 - 5.1 MMOL/L Chloride 97 (L) 98 - 110 MMOL/L CO2 35 (H) 21 - 30 MMOL/L Anion Gap 5 3 - 12 Glucose 137 (H) 70 - 100 MG/DL Blood Urea Nitrogen 30 (H) 7 - 25 MG/DL Creatinine 1.34 (H) 0.4 - 1.00 MG/DL Calcium 9.2 8.5 - 10.6 MG/DL eGFR Non 40 (L) >60 mL/min eGFR 49 (L) >60 mL/min MAGNESIUM Collection Time: 06/12/18 6:52 AM Result Value Ref Range Magnesium 1.9 1.6 - 2.6 mg/dL POC GLUCOSE Collection Time: 06/12/18 8:25 AM Result Value Ref Range Glucose, POC 129 (H) 70 - 100 MG/DL POC GLUCOSE Collection Time: 06/12/18 11:44 AM Result Value Ref Range Glucose, POC 159 (H) 70 - 100 MG/DL Point of Care Testing (Last 24 hours) Glucose: (!) 137 (06/12/18 0652) POC Glucose (Download): (!) 159 (06/12/18 1144) Radiology and other Diagnostics Review: Pertinent radiology reviewed. Surya Curry MD Pager [phone] ER MAKER Associated attestation - Amarilis Ray MD - 06/12/2018 5:08 PM MARKER MAKER ATTESTATION I personally performed the dempsey portions of the E/M visit, discussed case with Dr. Curry and concur with his documentation of history, physical exam, assessment, and treatment plan unless otherwise noted. I spent a total of 35 minutes in pt care today with an estimated 25 minutes spent reviewing admit H&P , course to date, and coordinating care. Appreciate rehab opinion. Patient is a good inpatient rehab candidate but prefers to be closer to home. That being said she is willing to go to rehab if that is an option. Patient states her normal weight is approximately 235 pounds-> that was her weight in March. Patient still with significant volume overload. Continue IV diuresis. Staff name: Amarilis Ray MD Date: 06/12/2018 * Anisha Evans RN - 06/12/2018 2:03 PM MARKER MAKER I have reviewed the notes, assessment, and/or procedures performed by Yumiko Mai , student nurse, and concur with her documentation unless otherwise noted. ER MAKER * Analia Bee RN - 06/12/2018 6:26 AM MARKER MAKER Heart Failure Nursing Progress Note Admission Date: 06/01/2018 LOS: 11 days Admission Weight: 132 kg (291 lb 0.1 oz) Most recent weights (inpatient): Vitals: 06/09/18 0600 06/10/18 0346 06/12/18 0500 Weight: 133.8 kg (295 lb) 135.4 kg (298 lb 6.4 oz) 136 kg (299 lb 13.2 oz) Weight change from previous day: +0.6kg Fluid restriction ordered: 1.5 Intake/Output Summary: (Last 24 hours) Intake/Output Summary (Last 24 hours) at 06/12/2018 0626 Last data filed at 06/12/2018 0622 Gross per 24 hour Intake 670 ml Output 1250 ml Net -580 ml Anticipated discharge date: ongoing Discharge goals: decrease fluid Daily Assessment of Patient Stated Goals: Short Term Goal Identified by patient (Short Term=during hospitalization): Move more ER MAKER * Aubrie Forman - 06/11/2018 2:13 PM MARKER MAKER CLINICAL NUTRITION Clinical Nutrition Assessment Summary NAME:Deborah Fields :1955 AGE: 62 y.o. ADMISSION DATE: 06/01/2018 DAYS ADMITTED: LOS: 10 days Nutrition Assessment of Patient: BMI Categories Adult: Obesity Class III: 40 and over(47.23 current wt) Unintentional Weight Loss: (remains above usual body weight range) Malnutrition Assessment: Does not meet criteria Current Oral Intake: Marginally Adequate Estimated Calorie Needs: 2401-3215(23-25 kcal/kg desired wt of 65.8 kg) Estimated Protein Needs: 79(1.2 g/kg desired wt of 65.8 kg) Oral Diet Order: Diabetic 4290-4466 Kcal/day (60 g Carb/meal, 30 g Carb/HS snack ), Cardiac, 1500 mL/Day Fluid Restriction Comments: 62 yo F with hx including CAD s/p CABG 02/2018, combined HF, afib s/p L atrial appendage ligation not on AC d/t recurrent GIBs c/b transfusion-dependent anemia , HTN, DM, CKD, hypothyroidism, morbid obesity & liver disease c/b portal HTN, EV, GAVE & ascites. She was transferred from [facility] on 06/01 after presenting there on 05/30 for syncope/fatigue. Admit c/b AMS/respiratory failure requiring intubation, afib w/ RVR & septic shock from HCAP + UTI. Has since been extubated (06/02 AM), shock resolved. Diuresis resumed. COMMERCIAL INSURANCE UNDERWRITER cleared pt for regular diet and thin liquids. Pt was briefly on EN while intubated, now tolerating a regular diet. She reports she still doesn't have great appetite, but it has slightly improved. Per chart she is eating 50-75% of meals. She reports occasional nausea and constipations. +BM 06/10. INSPECTOR FABRIC she reported decreased intakes/appetite for several weeks. Pt reports previous poor compliance of diet restrictions. She was observed asking for salt. RD previously provided diet education to pt, but expect poor compliance. Pt reports eating several high sodium foods and eating out frequently. 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 Pt has BLE pitting +3 and facial/ sacral edema. RD discussed importance and encouraged better compliance. Endorses usual weight range closer to 240-250# (admit wt listed at 291# and most recently 298#). No pressure injuries noted. Will likely benefit from ongoing diet rationale/education for reinforcement once. Pt is no longer at acute nutrition risk due to stable wt and improved intakes. Recommendation: Please encourage good diet compliance Intervention / Plan: RD encourage oral intakes. RD discussed DM and low sodium diet RD will no longer follow unless other ruiz consulted Goals: Patient to consume >50% of meals/supplements Time Frame: Within 5 Days Status: Met Aubrie Forman, RD, LD *[id number] ER MAKER * Surya Curry MD - 06/11/2018 1:07 PM MARKER MAKER General Progress Note Name: Deborah Fields Today's Date: 06/11/2018 Admission Date: 06/01/2018 LOS: 10 days Assessment/Plan: Active Problems: Type 2 diabetes mellitus with circulatory disorder, without long-term 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 (HCC) PAF (paroxysmal atrial fibrillation) (HCC) Atrial fibrillation with rapid ventricular response (HCC) Chronic gastrointestinal bleeding HLD (hyperlipidemia) Essential hypertension Acute on chronic diastolic heart failure due to coronary artery disease (HCC) Morbid obesity (HCC) Interval: -Continue Lasix to 40mg IV BID #Acute Hypercarbic& HypoxemicRespiratoryFailure (Improved) #L Pleural Effusion - d/t HCAP -CT chest (OSH):circumferentialLpleural effusion&densely consolidatedLbasew/air bronchograms - extubated 06/02 - currently on 2 L/NC, satting well, was discharged home on 04/08 on room air from HF service, but states she had 2L O2 prior to admission PLAN - Increased lasix to IV 40 mg BID #Chronic CombinedHF #CAD, HTN -s/p CABG x 4 02/2018 - echo04/01: LVEF 55-60%, dilated RV with hypocontractility, severeRA enlargement,moderate TR, moderate LAenlargement, +intra-atrial PFO with bidirectional shunt, s/p left atrial appendage ligation - repeat echo 06/02/18: LVEF 50-55%, no regional wall motion abnormalities; RV mildly dilated but function probably normal; mild to moderate MR; mild to moderate TR; peak PAP 41 mmHg; no pericardial effusion - EKG:no ST changes - troponin negative x 2 - BNP 247 (prior ,178) - INSPECTOR [employer] lasix 40 mg daily, but then given IVF when hypotensive overnight PLAN -continue INSPECTOR [employer] ASA #Septic Shock(resolved) - arrived to on pressor, but essentially stopped immediately -central venous O2 sat 84% - hypotensive overnight and briefly on dopamine (d/t bradycardia) -- off since ~ 020 - SBP 100-140s #Bradycardia; ChronicAfib/Flutter s/p Atrial Appendage Ligation - no INSPECTOR [employer]AB[employer]IC ACd/trecurrent GIBs - received amiodarone load at OSH & continued on a drip --> dc'd 06/02 - EKG 06/03 AM: aflutter, rate 79, QTc 445 - EKG 06/04 PM: aflutter, rate 81, QTc 421 - HR as low as 40s overnight --> given atropine x 2, IVF, and started on dopamine drip --> able to wean off dopamine ~ 0200 PLAN -continuePTAmetoprololat reduced dose of 50 mg BID(INSPECTOR [employer]AB[employer]IC dose is 100 mg BID) -hold INSPECTOR [employer]IC diltiazem for bradycardia on 06/05 #GAVE #Transfusion-DependentAnemia - follows withKUGI - EGD1: 3 columns of smallEV,portal HTN gastropathy &mild GAVE - hgb 8.5 on 06/04 --> stable ~7.4 - plt 107 PLAN -continuePTA PPI - Transfuse for hemoglobin <7 #Liver Disease -c/bportalHTN, congestive colopathy, EV,GAVE&ascites - limited prior w/u; was to see hepatology in clinic in June - 02/2018: diffuse hepatic steatosis - EGD as above - MELD-Na 10 #Dysphagia - Moderate oropharyngeal dysphagia per COMMERCIAL INSURANCE UNDERWRITER - Corpak removed. pt aware of risk of aspiration - COMMERCIAL INSURANCE UNDERWRITER recs 06/05: Continue regular solids, thin liquids #Constipation -Increased Bowel regimen 06/09:senna/docusate and added MiraLax and 1x bicosadyl enema. -06/11: poor BM output. Refused 1x Miralax, will attempt again #DELROY on CKD (resolved) - baseline Cr 1.3 - Cr 2.4 on arrival at OSH --> 1.3 this AM 06/06 - Will avoid nephrotoxins, renally dose meds, strict I/Os #DM2 -INSPECTOR FABRIC regimen:NPH 14 units Q AM, novolog 4 units TID - BS 110-160s last 24 hrs PLAN - continue 14U NPH daily + low dose correction factor #Hypothyroidism -TSH1.99 (06/01) PLAN -continuePTAsynthroid 175mcg daily #Septic Shock (resolved) #HCAP(resolved) #UTI(resolved) - WBC3.9;afebrile - hxresistant e.coli UTI - per OSH micro tech, no blood cxs were drawn - urine cx (OSH): + e.coli (resitant to cefazolin, ampicillin, levaquin, augmentin,cipro; sensitive to merrem, ceftriaxone & bactrim) - BAL 05/31(OSH): usual upper respiratory rob, tess species -CT chest (OSH): dense L base consolidation - blood cx06/01: NGTD - sputum cx 06/01: GS w/o organisms; cx NGTD - UA06/01: 1+ leuks, + nitrites, 20-50 WBC, few bacteria - urine cx06/02: < 100,000 tess albicans - strep pneumo and legionella urine Ags negative - procalcitonin0.22 (06/01) - no suitable pocket of ascites (on bedside US) for a paracentesis -ceftriaxone and doxycycline x 7 days (through 06/06) FEN - Regular solids, thin liquids, swallow precautions - tube feedings: dc'd - IVF: none - review electrolytes and replace as needed DVT PPx: SCDs; Heparin Code Status: Full Code Disposition/Family: Continue admission to med 2 Patient seen and discussed with Dr. Ngero Curry PGY-1 Pager [phone] SubjectiveRepor Deborah Fields is a 62 y.o. female. Overnight, patient had repeat episode of chest pain. Reported NTTP, EKG and troponin done. EKG was unchanged from patient 's prior, and Troponins were negative. When visiting today, patient appeared tired, said she didn't sleep until around 4am. Patient was too tired to discuss chest pain today, but said it had improved by the time of my exam, and endorsed TTP. Otherwise, no new complaints. Denies abdominal pain, SOB. Only small amounts of stools yesterday, only 1x recorded. Medications Scheduled Meds: aspirin chewable tablet 81 mg 81 mg Oral QDAY dextran 70/hypromellose (NATURAL BALANCE TEARS) 0.1/0.3 % ophthalmic solution 1 drop 1 drop Both Eyes QID fluconazole (DIFLUCAN) tablet 200 mg 200 mg Oral QDAY folic acid (FOLVITE) tablet 1 mg 1 mg Oral QDAY furosemide (LASIX) injection 40 mg 40 mg Intravenous BID(-17) heparin (porcine) PF syringe 5,000 Units 5,000 Units Subcutaneous Q8H insulin aspart U-100 (NOVOLOG FLEXPEN) injection PEN 0-7 Units 0-7 Units Subcutaneous ACHS insulin NPH (HUMULIN N KwikPen) injection PEN 14 Units 14 Units Subcutaneous QDAY() levothyroxine (SYNTHROID) tablet 175 mcg 175 mcg Oral QDAY() magnesium oxide (MAG-OX) tablet 400 mg 400 mg Oral BID metoprolol tartrate (LOPRESSOR) tablet 50 mg 50 mg Oral BID pantoprazole DR (PROTONIX) tablet 40 mg 40 mg Oral BID(-) potassium chloride SR (K-DUR) tablet 20 mEq 20 mEq Oral QDAY() senna/docusate (SENOKOT-S) tablet 2 tablet 2 tablet Oral BID tiZANidine (ZANAFLEX) tablet 4 mg 4 mg Oral QHS vitamins, multiple tablet 1 tablet 1 tablet Oral QDAY Continuous Infusions: PRN and Respiratory Meds:acetaminophen Q6H PRN, dextromethorphan/guaiFENesin Q4H PRN, polyethylene glycol 3350 BID PRN, prochlorperazine Q6H PRN, sodium chloride PRN, traMADol Q6H PRN Review of Systems: Constitutional: +Tiredness Eyes: negative Ears, nose, mouth, throat, and face: negative Respiratory: Negative Cardiovascular: +Chest pain Gastrointestinal:Negative Genitourinary:negative Integument/breast: negative Neurologic: Negative Objective: Vital Signs: Last Filed Vital Signs: 24 Hour Range BP: 126/62 (06/11 1200) Temp: 36.7 C (98.1 F) (06/11 1200) Pulse: 82 (06/11 1200) Respirations: 20 PER MINUTE (06/11 1200) SpO2: 98 % (06/11 1200) O2 Delivery: Nasal Cannula (06/11 1200) BP: (104-153)/(51-66) Temp: [36.7 C (98.1 F)-37 C (98.6 F)] Pulse: [79-104] Respirations: [18 PER MINUTE-20 PER MINUTE] SpO2: [95 %-98 %] O2 Delivery: Nasal Cannula Intensity Pain Scale (Self Report): 5 (06/10/18 2146) Vitals: 06/08/18 0544 06/09/18 0600 06/10/18 0346 Weight: 135.2 kg (298 lb 1.6 oz) 133.8 kg (295 lb) 135.4 kg (298 lb 6.4 oz) Intake/Output Summary: (Last 24 hours) Intake/Output Summary (Last 24 hours) at 06/11/2018 1307 Last data filed at 06/11/2018 1015 Gross per 24 hour Intake 730 ml Output 1400 ml Net -670 ml Stool Occurrence: 1 Physical Exam General Appearance: Appears overweight well nourished, stated age and in no distress. Somnolent but easily rousable PSYCH: Normal behavior, goal directed thinking, normal speech (rate and volume) HEENT: Normocephalic and atraumatic, mucous membranes moist. Sclera anicteric bilaterally. CV: S1 S2 RRR. No murmurs, rubs, clicks, gallops or S4. Distal extremities warm without cyanosis or clubbing. Radial pulses 2+ bilaterally and symmetric PULM:No wheezes, rhonchi, increased effort of breathing or diminished lung sounds in anterior lung bases. ABD: Soft, obese, NTTP. EXT: 2+ pitting edema to BLE and 1+ to BUE (L>R). No obvious deformity to BLE. SKIN: Warm and dry to touch. Pallor noted. NEURO: Tone grossly normal, cranial nerves 2-12 grossly intact, tracks to voice. Alert and interactive. Lab Review 24-hour labs: Results for orders placed or performed during the hospital encounter of (from the past 24 hour(s)) POC GLUCOSE Collection Time: 06/10/18 5:19 PM Result Value Ref Range Glucose, POC 106 (H) 70 - 100 MG/DL POC GLUCOSE Collection Time: 06/10/18 8:40 PM Result Value Ref Range Glucose, POC 142 (H) 70 - 100 MG/DL TROPONIN-I Collection Time: 06/10/18 10:20 PM Result Value Ref Range Troponin-I 0.01 0.0 - 0.05 NG/ML CBC Collection Time: 06/11/18 5:17 AM Result Value Ref Range White Blood Cells 4.0 (L) 4.5 - 11.0 K/UL RBC 2.55 (L) 4.0 - 5.0 M/UL Hemoglobin 8.1 (L) 12.0 - 15.0 GM/DL Hematocrit 24.7 (L) 36 - 45 % MCV 96.7 80 - 100 FL MCH 31.6 26 - 34 PG MCHC 32.7 32.0 - 36.0 G/DL RDW 16.7 (H) 11 - 15 % Platelet Count 114 (L) 150 - 400 K/UL MPV 8.4 7 - 11 FL BASIC METABOLIC PANEL Collection Time: 06/11/18 5:17 AM Result Value Ref Range Sodium 137 137 - 147 MMOL/L Potassium 4.7 3.5 - 5.1 MMOL/L Chloride 97 (L) 98 - 110 MMOL/L CO2 36 (H) 21 - 30 MMOL/L Anion Gap 4 3 - 12 Glucose 118 (H) 70 - 100 MG/DL Blood Urea Nitrogen 31 (H) 7 - 25 MG/DL Creatinine 1.34 (H) 0.4 - 1.00 MG/DL Calcium 9.4 8.5 - 10.6 MG/DL eGFR Non 40 (L) >60 mL/min eGFR 49 (L) >60 mL/min MAGNESIUM Collection Time: 06/11/18 5:17 AM Result Value Ref Range Magnesium 2.0 1.6 - 2.6 mg/dL POC GLUCOSE Collection Time: 06/11/18 9:15 AM Result Value Ref Range Glucose, POC 102 (H) 70 - 100 MG/DL POC GLUCOSE Collection Time: 06/11/18 11:48 AM Result Value Ref Range Glucose, POC 137 (H) 70 - 100 MG/DL Point of Care Testing (Last 24 hours) Glucose: (!) 118 (06/11/18 3981) POC Glucose (Download): (!) 137 (06/11/18 8353) Radiology and other Diagnostics Review: Pertinent radiology reviewed. Surya Curry MD Pager [phone] ER MAKER Associated attestation - Negro Tom MD - 06/11/2018 3:28 PM MARKER MAKER I personally performed the dempsey portions of the E/M visit, discussed case with Med II team and Dr Curry concur with his documentation of history, physical exam, assessment, and treatment plan unless otherwise outlined with my notations. Negro Tom MD Department of Internal Medicine, Hospitalist [phone] * Coleman Marin, PT - 06/11/2018 11:16 AM MARKER MAKER PHYSICAL THERAPY SUBJECTIVE: Reason for admission: respiratory failure - medically complex patient PMH: CAD, GI bleed, CABG, heart failure, afib, anemia, HTN, DM, CKD, hypothyroidism, morbid obesity, liver disease, HTN, congestive colopathy, ascites Mental / Cognitive Status: Alert;Cooperative;Follows Commands Pain: Patient has no complaint of pain Ambulation Assist: Independent Mobility at Household Level with Device Patient Owned Equipment: Roller Walker Home Situation: Lives with Family Type of Home: House Entry Stairs: Ramp In-Home Stairs: No Stairs BED MOBILITY/TRANSFERS: Supine to Sit: Standby Assist;Verbal Cues;Head of Bed Elevated;Use of Rail; Requires Extra Time Sit to Supine: Standby Assist;Verbal Cues;Bed Flat;Use of Rail;Requires Extra Time Transfer Type: Sit to/from Stand Transfer: Assistance Level: Bed;To/From;Bed Side Chair;Standby Assist Transfer: Assistive Device: Roller Walker Transfers: Type Of Assistance: Verbal Cues;Requires Extra Time GAIT: 10 feet with a roller walker and SBA. Wide stance and small steps. Pace is very slow EXERCISE: Sit to stand and bed to/from chair was practiced multiple times. A walker was used and cues were provided for technique. 5 times sit to stand was peformed; 65 seconds Patient on 2 liters of O2. O2 sats were stable before, during and after therapy. Lots of encouragement needed. Rest breaks between each movement was needed. PROGRESS: Weakness, impaired balance, anxiety about falling and self limiting behavior have impaired her mobility. AM-PAC 6 Clicks Basic Mobility Inpatient Turning [...] Little To walk in hospital room: A Lot Climbing 3-5 steps with a railing: Total Raw Score: 15 Standardized (T-scale) Score: 36.97 Basic Mobility CMS 0-100%: 50.4 CMS G Code Modifier for Basic Mobility: CK GOALS: Formulation: With Patient Time For Goal Achievement: 5 days Pt Will Go Supine To/From Sit: w/ Minimal Assist, Met, New Goal, w/ Stand By Assist Pt Will Transfer Bed/Chair: w/ Stand By Assist, Ongoing Pt Will Transfer Sit to Stand: w/ Stand By Assist, Ongoing Pt Will Ambulate: 1-10 Feet, w/ Walker, w/ Minimal Assist, Ongoing PLAN: Treatment Interventions: Mobility Training;Strengthening;Balance Activities Plan Frequency: 5 Days per Week Practice transfers. Practice gait with a wheelchair follow. RECOMMENDATIONS: PT Discharge Recommendations: Inpatient Setting Recommend ongoing assistance for: In and out of house;Transfers;Bed mobility; Ambulation;Stairs Therapist: Coleman Marin, PT Date: 06/11/2018 ER MAKER * Elizabeth Mueller RN - 06/10/2018 10:10 PM MARKER MAKER Patient c/o sharp chest pain radiating to her back. VSS. Dr. العلي notified and came to bedside to assess. Troponin and EKG ordered. ER MAKER * Virgie Burnett RN - 06/10/2018 6:44 PM MARKER MAKER Heart Failure Nursing Progress Note Admission Date: 06/01/2018 LOS: 9 days Admission Weight: 132 kg (291 lb 0.1 oz) Most recent weights (inpatient): Vitals: 06/08/18 0544 06/09/18 0600 06/10/18 0346 Weight: 135.2 kg (298 lb 1.6 oz) 133.8 kg (295 lb) 135.4 kg (298 lb 6.4 oz) Weight change from previous day: +1.6 kg Fluid restriction ordered: No Intake/Output Summary: (Last 24 hours) Intake/Output Summary (Last 24 hours) at 06/10/2018 1844 Last data filed at 06/10/2018 1625 Gross per 24 hour Intake 942 ml Output 1150 ml Net -208 ml Is patient incontinent No Anticipated discharge date: TBD Discharge goals: Decrease fluid Daily Assessment of Patient Stated Goals: Short Term Goal Identified by patient (Short Term=during hospitalization): Move more ER MAKER * Ling Vieyra OTA - 06/10/2018 3:20 PM MARKER MAKER OCCUPATIONAL THERAPY PROGRESS NOTE Patient Name: Deborah Fields Room/Bed: [place] [address] Admitting Diagnosis: Resp failure Mobility Progressive Mobility Level: Walk in room Distance Walked (feet): 10 ft Level of Assistance: Assist X1 Assistive Device: Walker Activity Limited By: Fatigue, edema Subjective Pertinent Dx per Physician: PMH CAD s/p CABG 02/2018, HF, afib s/p L atrial appendage ligation not on AC d/t recurrent GIBs c/b transfusion-dependent anemia , liver disease c/b portal HTN, congestive colopathy, EV, GAVE & ascites. Admitted as transfer 06/01 after presenting there on 05/30 for syncope/fatigue. Admit c/b AMS/respiratory failure requiring intubation, afib w/ RVR & septic shock from HCAP + UTI. Extubated 06/02. Precautions: Falls;O2 Requirement Comments: 2L O2 NC Pain / Complaints: Patient agrees to participate in therapy Home Living Type of Home: House Home Layout: One Level;Ramped Entrance Bathroom Shower / Tub: Walk-in Shower Home Equipment: Walker Prior Function Level Of [place]: Independent with ADLs and functional transfers Lives With: Spouse Receives Help From: None Needed Other Function Comments: Pt reports 2 recent falls in the bathroom, falling while trying to transfer off the toilet. ADL's LE Dressing Assist: Total Assist (BLE too edematous to reach or bend legs) LE Dressing Deficits: Don/Doff R Sock;Don/Doff L Sock Toileting Assist: Moderate Assist (thoroughness) Toileting Deficits: Perineal Hygiene;Bedside Commode (no LB clothing to manage) Functional Transfer Assist: Moderate Assist (Supine to sit with HOB elevated) Comment: Patient ambulates to the commode placed across the room using roller walker, contact guard assist. Cues to reach hands back for commode arm rest prior to sitting. Activity Tolerance Sitting Balance: 4/5 Moves/Returns Trunkal Midpoint 1-2 Inches in Multiple Planes Cognition Overall Cognitive Status: WFL to Adequately Complete Self Care Tasks Safely Assessment Assessment: Decreased ADL Status;Decreased Endurance;Decreased Self-Care Trans; Decreased High-Level ADLs Comment: Anticipate the more fluid comes off patient, the better she will tolerate activity. Patient requires assistance for most ADL's/fuinctional mobility at this time. AM-PAC 6 Clicks Daily Activity Inpatient Putting on and taking off regular lower body clothes?: Total Bathing (Including washing, rinsing, drying): A Lot Toileting, which includes using toilet, bedpan, or urinal: Total Putting on and taking off regular upper body clothing: A Lot Taking care of personal grooming such as brushing teeth: None Eating meals?: None Daily Activity Raw Score: 14 Standardized (t-scale) score: 33.39 CMS 0-100% Score: 59.67 CMS G Code Modifier: CK Plan OT Frequency: 5x/week OT Plan for Next Visit: lower body dressing, walking endurance ADL Goals Patient Will Perform Grooming: at Edge of Bed;in Chair;w/ Stand By Assist Patient Will Perform LE Dressing: w/ Minimum Assist Patient Will Perform Toileting: w/ Minimum Assist Functional Transfer Goals Pt Will Perform All Functional Transfers: Minimum Assist OT Discharge Recommendations OT Discharge Recommendations: Inpatient Setting Recommend ongoing assistance for: In and out of house, Transfers, Bed mobility, Ambulation, Stairs Therapist: DORY Hernandez [id number] Date: 06/10/2018 ER MAKER * Shannon Salcido - 06/10/2018 11:24 AM MARKER MAKER PHYSICAL THERAPY PROGRESS NOTE MOBILITY: Mobility Progressive Mobility Level: Walk in room Distance Walked (feet): 2 ft Level of Assistance: Assist X1 Assistive Device: Walker Time Tolerated: 11-30 minutes Activity Limited By: Patient request to stop SUBJECTIVE: Subjective Significant hospital events: Reason for admission: respiratory failure - medically complex patient PMH: CAD, GI bleed, CABG, heart failure, afib, anemia , HTN, DM, CKD, hypothyroidism, morbid obesity, liver disease, HTN, congestive colopathy, ascites Mental / Cognitive Status: Alert;Cooperative Pain: Patient has no complaint of pain Ambulation Assist: Independent Mobility at Household Level with Device Patient Owned Equipment: Roller Walker Home Situation: Lives with Family(lives with spouse who gets around in electric scooter) Type of Home: House Entry Stairs: Ramp In-Home Stairs: No Stairs BED MOBILITY/TRANSFERS: Bed Mobility/Transfers Bed Mobility: Supine to Sit: Minimal Assist;Head of Bed Elevated(1 hand hold assist with trunk) Bed Mobility: Sit to Supine: Minimal Assist;Assist with L LE;Bed Flat;Use of Rail;Verbal Cues;Requires Extra Time Transfer Type: Sit to/from Stand Transfer: Assistance Level: To/From;Bed;Commode;Minimal Assist Transfer: Assistive Device: Roller Walker Transfers: Type Of Assistance: Verbal Cues;Requires Extra Time End Of Activity Status: In Bed;Nursing Notified;Instructed Patient to Use Call Light Comments: Pt required total assist for hygiene after voiding. Pt declined attempting on her own due to stating she is "too swollen". GAIT: Gait Gait Distance: 2 feet(x2, during transfers - anticipate pt could walk further) Gait: Assistance Level: Standby Assist Gait: Assistive Device: Roller Walker Gait: Descriptors: Pace: Slow;Decreased step length Comments: Pt initially agreed to trial ambulating to door, however after using commode and physicians were entering room, pt declined attempting any ambulation. ASSESSMENT/PROGRESS: Assessment/Progress Impaired Mobility Due To: Decreased Activity Tolerance AM-PAC 6 Clicks Basic Mobility Inpatient Turning [...] Little Climbing 3-5 steps with a railing: Total Raw Score: 16 Standardized (T-scale) Score: 38.32 Basic Mobility CMS 0-100%: 47.12 CMS G Code Modifier for Basic Mobility: CK GOALS: Goals Goal Formulation: With Patient Time For Goal Achievement: 5 days Pt Will Go Supine To/From Sit: w/ Minimal Assist, Met, New Goal, w/ Stand By Assist Pt Will Transfer Bed/Chair: w/ Stand By Assist, Ongoing Pt Will Transfer Sit to Stand: w/ Stand By Assist, Ongoing Pt Will Ambulate: 1-10 Feet, w/ Walker, w/ Minimal Assist, Ongoing PLAN: Plan Treatment Interventions: Mobility Training;Strengthening;Balance Activities Plan Frequency: 5 Days per Week PT Plan for Next Visit: Progress ambulation distance, bed mobility with bed flat /no rail. RECOMMENDATIONS: PT Discharge Recommendations PT Discharge Recommendations: Inpatient Setting Therapist: Shannon Salcido Date: 06/10/2018 ER MAKER * Sybil Perkins RT - 06/10/2018 11:17 AM MARKER MAKER RT Adult Assessment Note NAME:Deborah Fields :1955 AGE: 62 y.o. ADMISSION DATE: 06/01/2018 DAYS ADMITTED: LOS: 9 days RT Treatment Plan: Protocol Plan: Procedures IPPB: Place a nursing order for "IS Q1h While Awake" for any of Lung Expansion indicators Oxygen/Humidity: O2 to keep SpO2 > 92% Monitoring: Pulse oximetry BID & PRN Additional Comments: Impressions of the patient: Patient in bed, awakes easily and is alert & oriented Intervention(s)/outcome(s): Patient on 2 lpm at this time (home reg per pt) sat at 94% Patient education that was completed: respiratory plan of care Recommendations to the care team: Held exercise ox at this time d/t no discharge plan for patient at this time for today (ex ox needing to be completed 24-48 hours before discharge). Will continue to follow patient and complete exercise ox when discharge plan for patient is within the time frame for it to be completed. RN made aware as well of plan Vital Signs: Pulse: Pulse: 93 RR: Respirations: 18 PER MINUTE SpO2: SpO2: 94 % O2 Device: $$ O2 Device: Cannula Liter Flow: O2 Liter Flow: 2 lpm O2%: Breath Sounds: All Breath Sounds: Clear (implies normal) Respiratory Effort: Respiratory Effort: Non-Labored ER MAKER * Surya Curry MD - 06/10/2018 6:33 AM MARKER MAKER General Progress Note Name: Deborah Fields Today's Date: 06/10/2018 Admission Date: 06/01/2018 LOS: 9 days Assessment/Plan: Active Problems: Type 2 diabetes mellitus with circulatory disorder, without long-term 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 (HCC) PAF (paroxysmal atrial fibrillation) (HCC) Atrial fibrillation with rapid ventricular response (HCC) Chronic gastrointestinal bleeding HLD (hyperlipidemia) Essential hypertension Acute on chronic diastolic heart failure due to coronary artery disease (HCC) Morbid obesity (HCC) Interval: -Increased Lasix to 40mg IV BID -2x BM since starting bowel regimen yesterday. #Acute Hypercarbic& HypoxemicRespiratoryFailure (Improved) #L Pleural Effusion - d/t HCAP -CT chest (OSH):circumferentialLpleural effusion&densely consolidatedLbasew/air bronchograms - extubated 06/02 - currently on 2 L/NC, satting well, was discharged home on 04/08 on room air from HF service, but states she had 2L O2 prior to admission PLAN - Increase lasix to IV 40 mg BID #Chronic CombinedHF #CAD, HTN -s/p CABG x 4 02/2018 - echo04/01: LVEF 55-60%, dilated RV with hypocontractility, severeRA enlargement,moderate TR, moderate LAenlargement, +intra-atrial PFO with bidirectional shunt, s/p left atrial appendage ligation - repeat echo 06/02/18: LVEF 50-55%, no regional wall motion abnormalities; RV mildly dilated but function probably normal; mild to moderate MR; mild to moderate TR; peak PAP 41 mmHg; no pericardial effusion - EKG:no ST changes - troponin negative x 2 - BNP 247 (prior 1,178) - INSPECTOR [employer]AB[employer]IC lasix 40 mg daily, but then given IVF when hypotensive overnight PLAN -continue INSPECTOR [employer] ASA #Septic Shock(resolved) - arrived to on pressor, but essentially stopped immediately -central venous O2 sat 84% - hypotensive overnight and briefly on dopamine (d/t bradycardia) -- off since ~ 0200 - SBP 100-140s #Bradycardia; ChronicAfib/Flutter s/p Atrial Appendage Ligation - no INSPECTOR [employer] ACd/trecurrent GIBs - received amiodarone load at OSH & continued on a drip --> dc'd 06/02 - EKG 06/03 AM: aflutter, rate 79, QTc 445 - EKG 06/04 PM: aflutter, rate 81, QTc 421 - HR as low as 40s overnight --> given atropine x 2, IVF, and started on dopamine drip --> able to wean off dopamine ~ 0200 PLAN -continuePTAmetoprololat reduced dose of 50 mg BID(INSPECTOR [employer]ABRIC dose is 100 mg BID) -hold INSPECTOR [employer] diltiazem for bradycardia on 06/05 #GAVE #Transfusion-DependentAnemia - follows withKUGI - EGD1: 3 columns of smallEV,portal HTN gastropathy &mild GAVE - hgb 8.5 on 06/04 --> stable ~7.4 - plt 107 PLAN -continuePTA PPI - Transfuse for hemoglobin <7 #Liver Disease -c/bportalHTN, congestive colopathy, EV,GAVE&ascites - limited prior w/u; was to see hepatology in clinic in June - 02/2018: diffuse hepatic steatosis - EGD as above - MELD-Na 10 #Dysphagia - Moderate oropharyngeal dysphagia per COMMERCIAL INSURANCE UNDERWRITER - Corpak removed. pt aware of risk of aspiration - COMMERCIAL INSURANCE UNDERWRITER recs 06/05: Continue regular solids, thin liquids #Constipation -On senna 2tab qHS -Increased Bowel regimen 06/09:senna/docusate and added MiraLax and 1x bicosadyl enema. #DELROY on CKD (resolved) - baseline Cr 1.3 - Cr 2.4 on arrival at OSH --> 1.3 this AM 06/06 - Will avoid nephrotoxins, renally dose meds, strict I/Os #DM2 -INSPECTOR [employer] regimen:NPH 14 units Q AM, novolog 4 units TID - BS 110-160s last 24 hrs PLAN - continue 14U NPH daily + low dose correction factor #Hypothyroidism -TSH1.99 (06/01) PLAN -continuePTAsynthroid 175mcg daily #Septic Shock (resolved) #HCAP(resolved) #UTI(resolved) - WBC3.9;afebrile - hxresistant e.coli UTI - per OSH micro tech, no blood cxs were drawn - urine cx (OSH): + e.coli (resitant to cefazolin, ampicillin, levaquin, augmentin,cipro; sensitive to merrem, ceftriaxone & bactrim) - BAL 05/31(OSH): usual upper respiratory rob, tess species -CT chest (OSH): dense L base consolidation - blood cx06/01: NGTD - sputum cx 06/01: GS w/o organisms; cx NGTD - UA06/01: 1+ leuks, + nitrites, 20-50 WBC, few bacteria - urine cx06/02: < 100,000 tess albicans - strep pneumo and legionella urine Ags negative - procalcitonin0.22 (06/01) - no suitable pocket of ascites (on bedside US) for a paracentesis -ceftriaxone and doxycycline x 7 days (through 06/06, stop date ordered) FEN - Regular solids, thin liquids, swallow precautions - tube feedings: dc'd - IVF: none - review electrolytes and replace as needed DVT PPx: SCDs; Heparin Code Status: Full Code Disposition/Family: Continue admission to med 2 Patient seen and discussed with Dr. Negro Curry PGY-1 Pager [phone] Subjective Dbeorah Fields is a 62 y.o. female. No acute events overnight. States that she has not had any further episodes of chest or abdominal pain. Patient feels breathing is at baseline and unchanged. Had mild self-limited headache yesterday. Has had 2 small BMs since changing bowel regimen yesterday. Continued edema, patient feels is improving. Patient states the she has been working with PT, but has not been out of bed otherwise, and cannot take many steps with assistance. Medications Scheduled Meds: aspirin chewable tablet 81 mg 81 mg Oral QDAY dextran 70/hypromellose (NATURAL BALANCE TEARS) 0.1/0.3 % ophthalmic solution 1 drop 1 drop Both Eyes QID fluconazole (DIFLUCAN) tablet 200 mg 200 mg Oral QDAY folic acid (FOLVITE) tablet 1 mg 1 mg Oral QDAY furosemide (LASIX) tablet 60 mg 60 mg Oral QDAY heparin (porcine) PF syringe 5,000 Units 5,000 Units Subcutaneous Q8H insulin aspart U-100 (NOVOLOG FLEXPEN) injection PEN 0-7 Units 0-7 Units Subcutaneous ACHS insulin NPH (HUMULIN N KwikPen) injection PEN 14 Units 14 Units Subcutaneous QDAY() levothyroxine (SYNTHROID) tablet 175 mcg 175 mcg Oral QDAY() magnesium oxide (MAG-OX) tablet 400 mg 400 mg Oral BID metoprolol tartrate (LOPRESSOR) tablet 50 mg 50 mg Oral BID pantoprazole DR (PROTONIX) tablet 40 mg 40 mg Oral BID(-) potassium chloride SR (K-DUR) tablet 20 mEq 20 mEq Oral QDAY() senna/docusate (SENOKOT-S) tablet 2 tablet 2 tablet Oral BID tiZANidine (ZANAFLEX) tablet 4 mg 4 mg Oral QHS vitamins, multiple tablet 1 tablet 1 tablet Oral QDAY Continuous Infusions: PRN and Respiratory Meds:acetaminophen Q6H PRN, dextromethorphan/guaiFENesin Q4H PRN, polyethylene glycol 3350 BID PRN, prochlorperazine Q6H PRN, sodium chloride PRN, traMADol Q6H PRN Review of Systems: Constitutional: negative Eyes: negative Ears, nose, mouth, throat, and face: negative Respiratory: Positive for cough Cardiovascular: Negative Gastrointestinal: Positive for Abd pain, nausea, retching. Genitourinary:negative Integument/breast: negative Neurologic: Negative Objective: Vital Signs: Last Filed Vital Signs: 24 Hour Range BP: 146/58 (06/10 346) Temp: 36.6 C (97.8 F) (06/10 346) Pulse: 80 (06/10 346) Respirations: 18 PER MINUTE (06/10 346) SpO2: 96 % (06/10 346) O2 Delivery: Nasal Cannula (06/10 346) BP: (107-146)/(50-63) Temp: [36.4 C (97.6 F)-36.7 C (98.1 F)] Pulse: [80-111] Respirations: [16 PER MINUTE-20 PER MINUTE] SpO2: [95 %-100 %] O2 Delivery: Nasal Cannula Intensity Pain Scale (Self Report): 5 (06/09/18 8777) Verbal Pain Description: Moderate Pain (06/09/18 0900) Vitals: 06/08/18 0544 06/09/18 0600 06/10/18 0346 Weight: 135.2 kg (298 lb 1.6 oz) 133.8 kg (295 lb) 135.4 kg (298 lb 6.4 oz) Intake/Output Summary: (Last 24 hours) Intake/Output Summary (Last 24 hours) at 06/10/2018 0633 Last data filed at 06/10/2018 0400 Gross per 24 hour Intake 580 ml Output 1000 ml Net -420 ml Stool Occurrence: 0 Physical Exam General Appearance: Appears overweight well nourished, stated age and in no distress PSYCH: Normal behavior, goal directed thinking, normal speech (rate and volume) HEENT: Normocephalic and atraumatic, mucous membranes moist. Sclera anicteric bilaterally. CV: S1 S2 RRR. No murmurs, rubs, clicks, gallops or S4. Distal extremities warm without cyanosis or clubbing. Radial pulses 2+ bilaterally and symmetric PULM:No wheezes, rhonchi, increased effort of breathing or diminished lung sounds in anterior lung bases. ABD: Soft, obese, NTTP. EXT: 2+ pitting edema to BLE and 1+ to BUE (L>R). No obvious deformity to BLE. SKIN: Warm and dry to touch. Pallor noted. Patient becomes more red when laying flat. NEURO: Tone grossly normal, cranial nerves 2-12 grossly intact, tracks to voice. Alert and interactive. Lab Review 24-hour labs: Results for orders placed or performed during the hospital encounter of (from the past 24 hour(s)) MAGNESIUM Collection Time: 06/09/18 8:00 AM Result Value Ref Range Magnesium 1.8 1.6 - 2.6 mg/dL BASIC METABOLIC PANEL Collection Time: 06/09/18 8:00 AM Result Value Ref Range Sodium 136 (L) 137 - 147 MMOL/L Potassium 4.3 3.5 - 5.1 MMOL/L Chloride 98 98 - 110 MMOL/L CO2 34 (H) 21 - 30 MMOL/L Anion Gap 4 3 - 12 Glucose 126 (H) 70 - 100 MG/DL Blood Urea Nitrogen 30 (H) 7 - 25 MG/DL Creatinine 1.26 (H) 0.4 - 1.00 MG/DL Calcium 9.4 8.5 - 10.6 MG/DL eGFR Non 43 (L) >60 mL/min eGFR 52 (L) >60 mL/min CBC Collection Time: 06/09/18 8:04 AM Result Value Ref Range White Blood Cells 4.6 4.5 - 11.0 K/UL RBC 2.78 (L) 4.0 - 5.0 M/UL Hemoglobin 8.7 (L) 12.0 - 15.0 GM/DL Hematocrit 27.1 (L) 36 - 45 % MCV 97.5 80 - 100 FL MCH 31.3 26 - 34 PG MCHC 32.1 32.0 - 36.0 G/DL RDW 16.6 (H) 11 - 15 % Platelet Count 124 (L) 150 - 400 K/UL MPV 8.5 7 - 11 FL POC GLUCOSE Collection Time: 06/09/18 8:56 AM Result Value Ref Range Glucose, POC 127 (H) 70 - 100 MG/DL POC GLUCOSE Collection Time: 06/09/18 1:25 PM Result Value Ref Range Glucose, POC 113 (H) 70 - 100 MG/DL POC GLUCOSE Collection Time: 06/09/18 5:30 PM Result Value Ref Range Glucose, POC 94 70 - 100 MG/DL POC GLUCOSE Collection Time: 06/09/18 9:57 PM Result Value Ref Range Glucose, POC 136 (H) 70 - 100 MG/DL Point of Care Testing (Last 24 hours) Glucose: (!) 126 (06/09/18 0800) POC Glucose (Download): (!) 136 (06/09/18 2157) Radiology and other Diagnostics Review: Pertinent radiology reviewed. Surya Curry MD Pager [phone] ER MAKER Associated attestation - Negro Tom MD - 06/10/2018 5:37 PM MARKER MAKER I personally performed the dempsey portions of the E/M visit, discussed case with Med II team and Dr Curry concur with his documentation of history, physical exam, assessment, and treatment plan unless otherwise outlined with my notations. Negro Tom MD Department of Internal Medicine, Hospitalist [phone] * Elizabeth Mueller RN - 06/10/2018 6:14 AM MARKER MAKER Heart Failure Nursing Progress Note Admission Date: 06/01/2018 LOS: 9 days Admission Weight: 132 kg (291 lb 0.1 oz) Most recent weights (inpatient): Vitals: 06/08/18 0544 06/09/18 0600 06/10/18 0346 Weight: 135.2 kg (298 lb 1.6 oz) 133.8 kg (295 lb) 135.4 kg (298 lb 6.4 oz) Weight change from previous day: + 3lbs 6.4oz Fluid restriction ordered: none Intake/Output Summary: (Last 24 hours) Intake/Output Summary (Last 24 hours) at 06/10/2018 0614 Last data filed at 06/10/2018 0400 Gross per 24 hour Intake 580 ml Output 1000 ml Net -420 ml Is patient incontinent No Anticipated discharge date: ongoing Discharge goals: decrease fluid Daily Assessment of Patient Stated Goals: Short Term Goal Identified by patient (Short Term=during hospitalization): Move more ER MAKER * Preethi Radford RN - 06/09/2018 7:49 PM MARKER MAKER Heart Failure Nursing Progress Note Admission Date: 06/01/2018 LOS: 8 days Admission Weight: 132 kg (291 lb 0.1 oz) Most recent weights (inpatient): Vitals: 06/08/18 0315 06/08/18 0544 06/09/18 0600 Weight: (!) 136.5 kg (301 lb) 135.2 kg (298 lb 1.6 oz) 133.8 kg (295 lb) Weight change from previous day: -1.4kg Fluid restriction ordered: none Intake/Output Summary: (Last 24 hours) Intake/Output Summary (Last 24 hours) at 06/09/2018 1949 Last data filed at 06/09/2018 1923 Gross per 24 hour Intake 100 ml Output 650 ml Net -550 ml Is patient incontinent No Anticipated discharge date: plan ongoing Discharge goals: Mobility to baseline, diuresis Daily Assessment of Patient Stated Goals: Short Term Goal Identified by patient (Short Term=during hospitalization): increase mobility, have a BM ER MAKER * Preethi Radford RN - 06/09/2018 2:44 PM MARKER MAKER At this RN's request, Physical Therapy performed standing weight. Pt unable to balance on standing scale d/t body habitus and size of scale. ER MAKER * Coleman Marin, PT - 06/09/2018 2:11 PM MARKER MAKER PHYSICAL THERAPY PROGRESS NOTE SUBJECTIVE: Reason for admission: respiratory failure - medically complex patient PMH: CAD, GI bleed, CABG, heart failure, afib, anemia, HTN, DM, CKD, hypothyroidism, morbid obesity, liver disease, HTN, congestive colopathy, ascites Mental / Cognitive Status: Alert;Cooperative;Follows Commands Pain: Patient has no complaint of pain Ambulation Assist: Independent Mobility at Household Level with Device Patient Owned Equipment: Roller Walker Home Situation: Lives with Family Type of Home: House Entry Stairs: Ramp In-Home Stairs: No Stairs BED MOBILITY/TRANSFERS: Supine to Sit: Standby Assist;Verbal Cues;Head of Bed Elevated;Use of Rail; Requires Extra Time Sit to Supine: Standby Assist;Verbal Cues;Bed Flat;Use of Rail;Requires Extra Time Transfer Type: Sit to/from Stand Transfer: Assistance Level: Bed;To/From;Bed Side Chair;Standby Assist Transfer: Assistive Device: Roller Walker Transfers: Type Of Assistance: Verbal Cues;Requires Extra Time EXERCISE: Sit to stand and bed to/from chair was practiced multiple times. A walker was used and cues were provided for technique. Patient was polite but also adamant that she was too weak to attempt to walk. PROGRESS: Weakness, impaired balance and self limiting behavior have impaired her mobility. AM-PAC 6 Clicks Basic Mobility Inpatient Turning [...] Little To walk in hospital room: A Lot Climbing 3-5 steps with a railing: Total Raw Score: 15 Standardized (T-scale) Score: 36.97 Basic Mobility CMS 0-100%: 50.4 CMS G Code Modifier for Basic Mobility: CK GOALS: Formulation: With Patient Time For Goal Achievement: 5 days Pt Will Go Supine To/From Sit: w/ Minimal Assist, Met, New Goal, w/ Stand By Assist Pt Will Transfer Bed/Chair: w/ Stand By Assist, Ongoing Pt Will Transfer Sit to Stand: w/ Stand By Assist, Ongoing Pt Will Ambulate: 1-10 Feet, w/ Walker, w/ Minimal Assist, Ongoing PLAN: Treatment Interventions: Mobility Training;Strengthening;Balance Activities Plan Frequency: 5 Days per Week Practice transfers. Practice gait with a wheelchair follow. RECOMMENDATIONS: PT Discharge Recommendations: Inpatient Setting Recommend ongoing assistance for: In and out of house;Transfers;Bed mobility; Ambulation;Stairs Therapist: Coleman Marin, PT Date: 06/09/2018 ER MAKER * Jeffry Ruiz OT - 06/09/2018 2:00 PM MARKER MAKER OCCUPATIONAL THERAPY NOTE Occupational therapy with two attempts to see pt this date, pt with meal tray in AM and working with PT in PM. OT will continue to follow pt and provide interventions as indicated. Jeffry Ruiz OTR/L [id number] ER MAKER * Elizabeth Mueller RN - 06/09/2018 6:48 AM MARKER MAKER Heart Failure Nursing Progress Note Admission Date: 06/01/2018 LOS: 8 days Admission Weight: 132 kg (291 lb 0.1 oz) Most recent weights (inpatient): Vitals: 06/08/18 0315 06/08/18 0544 06/09/18 0600 Weight: (!) 136.5 kg (301 lb) 135.2 kg (298 lb 1.6 oz) 133.8 kg (295 lb) Weight change from previous day: - 3lbs 1.6oz Fluid restriction ordered: none Intake/Output Summary: (Last 24 hours) Intake/Output Summary (Last 24 hours) at 06/09/2018 0648 Last data filed at 06/09/2018 0400 Gross per 24 hour Intake 100 ml Output 350 ml Net -250 ml Is patient incontinent No Anticipated discharge date: ongoing Discharge goals: decrease fluid Daily Assessment of Patient Stated Goals: Short Term Goal Identified by patient (Short Term=during hospitalization): Get moving more ER MAKER * Surya Curry MD - 06/09/2018 6:22 AM MARKER MAKER General Progress Note Name: Deborah Fields Today's Date: 06/09/2018 Admission Date: 06/01/2018 LOS: 8 days Assessment/Plan: Active Problems: Type 2 diabetes mellitus with circulatory disorder, without long-term 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 (HCC) PAF (paroxysmal atrial fibrillation) (HCC) Atrial fibrillation with rapid ventricular response (HCC) Chronic gastrointestinal bleeding HLD (hyperlipidemia) Essential hypertension Acute on chronic diastolic heart failure due to coronary artery disease (HCC) Morbid obesity (HCC) Interval: -Increased Lasix to 60mg -No BM x4 days. Changed senna to senna/docusate and added MiraLax and 1x bicosadyl enema. NEURO Acute Encephalopathy (resolved) - developed AMS the day of admit to OSH in the setting of septic shock -CT head (OSH): no acute process - ammonia level 95 (06/02) - on exam, pt is alert and answers on 06/06 PLAN -continue PTAtizanidine and tramadol PULM Acute Hypercarbic& HypoxemicRespiratoryFailure (Improving) L Pleural Effusion - d/t HCAP -CT chest (OSH):circumferentialLpleural effusion&densely consolidatedLbasew/air bronchograms - extubated 06/02 - currently on 3 L/NC, O2 sat 98% as of 06/06, was discharged home on 04/08 on room air from HF service, but states she had 2L O2 prior to admission PLAN - Increase PO lasix to 60mg daily CV Chronic CombinedHF CAD, HTN -s/p CABG x 4 02/2018 - echo04/01: LVEF 55-60%, dilated RV with hypocontractility, severeRA enlargement,moderate TR, moderate LAenlargement, +intra-atrial PFO with bidirectional shunt, s/p left atrial appendage ligation - repeat echo 06/02/18: LVEF 50-55%, no regional wall motion abnormalities; RV mildly dilated but function probably normal; mild to moderate MR; mild to moderate TR; peak PAP 41 mmHg; no pericardial effusion - EKG:no ST changes - troponin negative x 2 - BNP 247 (prior 1178) - INSPECTOR [employer]RIC lasix 40 mg daily, but then given IVF when hypotensive overnight PLAN -continue INSPECTOR [employer]IC ASA -Increase - Additional IV lasix 40mg once 06/06 Septic Shock(resolved) - arrived to on pressor, but essentially stopped immediately -central venous O2 sat 84% - hypotensive overnight and briefly on dopamine (d/t bradycardia) -- off since ~ 0200 - SBP 100-140s Bradycardia; ChronicAfib/Flutter s/p Atrial Appendage Ligation - no INSPECTOR [employer]AB[employer]IC ACd/trecurrent GIBs - received amiodarone load at OSH & continued on a drip --> dc'd 06/02 - EKG 06/03 AM: aflutter, rate 79, QTc 445 - EKG 06/04 PM: aflutter, rate 81, QTc 421 - HR as low as 40s overnight --> given atropine x 2, IVF, and started on dopamine drip --> able to wean off dopamine ~ 0200 PLAN -continuePTAmetoprololat reduced dose of 50 mg BID(INSPECTOR [employer]AB[employer]IC dose is 100 mg BID) -hold INSPECTOR [employer]IC diltiazem for bradycardia on 06/05 GI GAVE Transfusion-DependentAnemia - follows withKUGI - EGD1: 3 columns of smallEV,portal HTN gastropathy &mild GAVE - hgb 8.5 on 06/04 --> stable ~7.4 - plt 107 PLAN -continuePTA PPI Liver Disease -c/bportalHTN, congestive colopathy, EV,GAVE&ascites - limited prior w/u; was to see hepatology in clinic in June - [place] 02/2018: diffuse hepatic steatosis - EGD as above - MELD-Na 10 Dysphagia - Moderate oropharyngeal dysphagia per COMMERCIAL INSURANCE UNDERWRITER - Corpak removed. pt aware of risk of aspiration - COMMERCIAL INSURANCE UNDERWRITER recs 06/05: Continue regular solids, thin liquids Constipation -On senna 2tab qHS -Increased Bowel regimen 06/09:senna/docusate and added MiraLax and 1x bicosadyl enema. RENAL DELROY on CKD (resolved) - baseline Cr 1.3 - Cr 2.4 on arrival at OSH --> 1.3 this AM 06/06 - Will avoid nephrotoxins, renally dose meds, strict I/Os ENDO DM2 -INSPECTOR FABRIC regimen:NPH 14 units Q AM, novolog 4 units TID - BS 110-160s last 24 hrs PLAN - continue 14U NPH daily + low dose correction factor Hypothyroidism -TSH1.99 (06/01) PLAN -continuePTAsynthroid 175mcg daily ID Septic Shock HCAP UTI - WBC3.9;afebrile - hxresistant e.coli UTI - per OSH micro tech, no blood cxs were drawn - urine cx (OSH): + e.coli (resitant to cefazolin, ampicillin, levaquin, augmentin,cipro; sensitive to merrem, ceftriaxone & bactrim) - BAL 05/31(OSH): usual upper respiratory rob, tess species -CT chest (OSH): dense L base consolidation - blood cx06/01: NGTD - sputum cx 06/01: GS w/o organisms; cx NGTD - UA06/01: 1+ leuks, + nitrites, 20-50 WBC, few bacteria - urine cx06/02: < 100,000 tess albicans - strep pneumo and legionella urine Ags negative - procalcitonin0.22 (06/01) - no suitable pocket of ascites (on bedside US) for a paracentesis PLAN - continue ceftriaxone and doxycycline x 7 days (through 06/06, stop date ordered) FEN - Regular solids, thin liquids, swallow precautions - tube feedings: dc'd - IVF: none - review electrolytes and replace as needed DVT PPx: SCDs; Heparin Code Status: Full Code Disposition/Family: Continue admission to [facility] 2 Patient seen and discussed with Dr. Negro Curry PGY-1 Pager [phone] Subjective Deborah Fields is a 62 y.o. female. NAEON. Patient says that she started having abdominal pain and nausea, no vomiting that started around 7:00 this AM. She is passing gas, but has not had BM over the past 4 days. Would like bowel regimen at this time. Patient also wants to work with mobility with PT/OT today. Also endorsing dry eyes, as well as dry nasal passages while on O2. Medications Scheduled Meds: aspirin chewable tablet 81 mg 81 mg Oral QDAY fluconazole (DIFLUCAN) tablet 200 mg 200 mg Oral QDAY folic acid (FOLVITE) tablet 1 mg 1 mg Oral QDAY furosemide (LASIX) tablet 40 mg 40 mg Oral QDAY heparin (porcine) PF syringe 5,000 Units 5,000 Units Subcutaneous Q8H insulin aspart U-100 (NOVOLOG FLEXPEN) injection PEN 0-7 Units 0-7 Units Subcutaneous ACHS insulin NPH (HUMULIN N KwikPen) injection PEN 14 Units 14 Units Subcutaneous QDAY(07) levothyroxine (SYNTHROID) tablet 175 mcg 175 mcg Oral QDAY(07) magnesium oxide (MAG-OX) tablet 400 mg 400 mg Oral BID metoprolol tartrate (LOPRESSOR) tablet 50 mg 50 mg Oral BID pantoprazole DR (PROTONIX) tablet 40 mg 40 mg Oral BID(11-21) potassium chloride SR (K-DUR) tablet 20 mEq 20 mEq Oral QDAY(12) senna (SENOKOT) tablet 2 tablet 2 tablet Oral QHS tiZANidine (ZANAFLEX) tablet 4 mg 4 mg Oral QHS vitamins, multiple tablet 1 tablet 1 tablet Oral QDAY Continuous Infusions: PRN and Respiratory Meds:dextromethorphan/guaiFENesin Q4H PRN, prochlorperazine Q6H PRN, traMADol Q6H PRN Review of Systems: Constitutional: negative Eyes: negative Ears, nose, mouth, throat, and face: negative Respiratory: Positive for cough Cardiovascular: Negative Gastrointestinal: Positive for Abd pain, nausea, retching. Genitourinary:negative Integument/breast: negative Neurologic: Negative Objective: Vital Signs: Last Filed Vital Signs: 24 Hour Range BP: 101/55 (06/09 455) Temp: 36.7 C (98 F) (06/09 455) Pulse: 81 (06/09 455) Respirations: 18 PER MINUTE (06/09 455) SpO2: 98 % (06/09 455) O2 Delivery: Nasal Cannula (06/09 455) BP: (101-151)/(55-70) Temp: [36.6 C (97.8 F)-36.7 C (98.1 F)] Pulse: [81-105] Respirations: [18 PER MINUTE] SpO2: [93 %-99 %] O2 Delivery: Nasal Cannula Intensity Pain Scale (Self Report): 5 (06/08/182113) Vitals: 06/07/18 0520 06/08/18 0315 06/08/18 0544 Weight: (!) 136.3 kg (300 lb 6.4 oz) (!) 136.5 kg (301 lb) 135.2 kg (298 lb 1.6 oz) Intake/Output Summary: (Last 24 hours) Intake/Output Summary (Last 24 hours) at 06/09/2018 0622 Last data filed at 06/09/2018 0400 Gross per 24 hour Intake 100 ml Output 350 ml Net -250 ml Stool Occurrence: 0 Physical Exam General Appearance: Appears overweight well nourished, stated age and in no distress PSYCH: Normal behavior, goal directed thinking, normal speech (rate and volume) HEENT: Normocephalic and atraumatic, mucous membranes moist. Tongue erythematous and swollen, no thrush visible. Sclera anicteric bilaterally. CV: S1 S2 RRR. No murmurs, rubs, clicks, gallops or S4. Distal extremities warm without cyanosis or clubbing. Radial pulses 2+ bilaterally and symmetric. No parasternal heaves. PULM: Fine crackles at BL anterior bases, no wheezes, rhonchi, increased effort of breathing or diminished lung sounds. Speaks in complete sentences. ABD: Soft, obese, TTP in RUQ, Epigastric regions. EXT: 2+ pitting edema to BLE and 1+ to BUE (L>R). No obvious deformity to BLE. SKIN: Warm and dry to touch. Pallor noted. NEURO: Tone grossly normal, cranial nerves 2-12 grossly intact, tracks to voice. Alert and interactive. Lab Review 24-hour labs: Results for orders placed or performed during the hospital encounter of (from the past 24 hour(s)) POC GLUCOSE Collection Time: 06/08/18 8:08 AM Result Value Ref Range Glucose, POC 103 (H) 70 - 100 MG/DL POC GLUCOSE Collection Time: 06/08/18 12:40 PM Result Value Ref Range Glucose, POC 106 (H) 70 - 100 MG/DL POC GLUCOSE Collection Time: 06/08/18 6:17 PM Result Value Ref Range Glucose, POC 159 (H) 70 - 100 MG/DL POC GLUCOSE Collection Time: 06/08/18 9:14 PM Result Value Ref Range Glucose, POC 173 (H) 70 - 100 MG/DL Point of Care Testing (Last 24 hours) POC Glucose (Download): (!) 173 (06/08/182113) Radiology and other Diagnostics Review: Pertinent radiology reviewed. Surya Curry MD Pager [phone] ER MAKER Associated attestation - Negro Tom MD - 06/09/2018 3:25 PM MARKER MAKER I personally performed the dempsey portions of the E/M visit, discussed case with Med II team and Dr Curry concur with his documentation of history, physical exam, assessment, and treatment plan unless otherwise outlined with my notations. Negro Tom MD Department of Internal Medicine, Hospitalist [phone] * Elizabeth Mueller RN - 06/09/2018 5:59 AM MARKER MAKER Shift: Night Mentation: A/O x4 Cardiac: S1, S2, SR on tele Respiratory: 3L NC, SOA on exertion GI/: voids, last BM: 06/05 Nutrition: cardiac/ADA diet Activity: x2 assist with walker, hasn't been wanting to get out of bed much, need to encourage Pain: c/o back pain Family: present at bedside Follow up: Plan of care is on going ER MAKER * Preethi Radford RN - 06/08/2018 7:44 PM MARKER MAKER Heart Failure Nursing Progress Note Admission Date: 06/01/2018 LOS: 7 days Admission Weight: 132 kg (291 lb 0.1 oz) Most recent weights (inpatient): Vitals: 06/07/18 0520 06/08/18 0315 06/08/18 0544 Weight: (!) 136.3 kg (300 lb 6.4 oz) (!) 136.5 kg (301 lb) 135.2 kg (298 lb 1.6 oz) Weight change from previous day: -1.1 kg Fluid restriction ordered: None Intake/Output Summary: (Last 24 hours) Intake/Output Summary (Last 24 hours) at 06/08/2018 194 Last data filed at 06/08/2018 1100 Gross per 24 hour Intake 480 ml Output 975 ml Net -495 ml Is patient incontinent No Anticipated discharge date: Plan ongoing Discharge goals: Safe discharge from mobility standpoint Daily Assessment of Patient Stated Goals: Short Term Goal Identified by patient (Short Term=during hospitalization): none identified ER MAKER * Lakeisha Cox RT - 06/08/2018 3:20 PM MARKER MAKER RT will complete exercise oximetry within 24-48 hours prior to discharge. No planned discharge date at this time. ER MAKER * Surya Curry MD - 06/08/2018 2:48 PM MARKER MAKER General Progress Note Name: Deborah Fields Today's Date: 06/08/2018 Admission Date: 06/01/2018 LOS: 7 days Assessment/Plan: Active Problems: Type 2 diabetes mellitus with circulatory disorder, without long-term 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 (HCC) PAF (paroxysmal atrial fibrillation) (HCC) Atrial fibrillation with rapid ventricular response (HCC) Chronic gastrointestinal bleeding HLD (hyperlipidemia) Essential hypertension Acute on chronic diastolic heart failure due to coronary artery disease (HCC) Morbid obesity (HCC) Interval: -Chest pain, EKG and TN negative for ACS, recent coughing/retching, likely MSK. -Nausea: Added compazine, d/c zofran. NEURO Acute Encephalopathy (resolved) - developed AMS the day of admit to OSH in the setting of septic shock -CT head (OSH): no acute process - ammonia level 95 (06/02) - on exam, pt is alert and answers on 06/06 PLAN -continue PTAtizanidine and tramadol PULM Acute Hypercarbic& HypoxemicRespiratoryFailure (Improving) L Pleural Effusion - d/t HCAP -CT chest (OSH):circumferentialLpleural effusion&densely consolidatedLbasew/air bronchograms - extubated 06/02 - currently on 3 L/NC, O2 sat 98% as of 06/06, was discharged home on 04/08 on room air from HF service, but states she had 2L O2 prior to admission PLAN - Continue PO lasix 40mg daily CV Chronic CombinedHF CAD, HTN -s/p CABG x 4 02/2018 - echo04/01: LVEF 55-60%, dilated RV with hypocontractility, severeRA enlargement,moderate TR, moderate LAenlargement, +intra-atrial PFO with bidirectional shunt, s/p left atrial appendage ligation - repeat echo 06/02/18: LVEF 50-55%, no regional wall motion abnormalities; RV mildly dilated but function probably normal; mild to moderate MR; mild to moderate TR; peak PAP 41 mmHg; no pericardial effusion - EKG:no ST changes - troponin negative x 2 - BNP 247 (prior ) - INSPECTOR FABRIC lasix 40 mg daily, but then given IVF when hypotensive overnight PLAN -continue INSPECTOR FABRIC ASA & lasix - Additional IV lasix 40mg once 06/06 Septic Shock(resolved) - arrived to on pressor, but essentially stopped immediately -central venous O2 sat 84% - hypotensive overnight and briefly on dopamine (d/t bradycardia) -- off since ~ 0200 - SBP 100-140s Bradycardia; ChronicAfib/Flutter s/p Atrial Appendage Ligation - no INSPECTOR FABRIC ACd/trecurrent GIBs - received amiodarone load at OSH & continued on a drip --> dc'd 06/02 - EKG 06/03 AM: aflutter, rate 79, QTc 445 - EKG 06/04 PM: aflutter, rate 81, QTc 421 - HR as low as 40s overnight --> given atropine x 2, IVF, and started on dopamine drip --> able to wean off dopamine ~ 0200 PLAN -continuePTAmetoprololat reduced dose of 50 mg BID(INSPECTOR FABRIC dose is 100 mg BID) -hold INSPECTOR FABRIC diltiazem for bradycardia on 06/05 GI GAVE Transfusion-DependentAnemia - follows withKUGI - EGD1: 3 columns of smallEV,portal HTN gastropathy &mild GAVE - hgb 8.5 on 06/04 --> stable ~7.4 - plt 107 PLAN -continuePTA PPI Liver Disease -c/bportalHTN, congestive colopathy, EV,GAVE&ascites - limited prior w/u; was to see hepatology in clinic in June 02/2018: diffuse hepatic steatosis - EGD as above - MELD-Na 10 Dysphagia - Moderate oropharyngeal dysphagia per COMMERCIAL INSURANCE UNDERWRITER - Corpak removed. pt aware of risk of aspiration - COMMERCIAL INSURANCE UNDERWRITER recs 06/05: Continue regular solids, thin liquids RENAL DELROY on CKD (resolved) - baseline Cr 1.3 - Cr 2.4 on arrival at OSH --> 1.3 this AM 06/06 - Will avoid nephrotoxins, renally dose meds, strict I/Os ENDO DM2 -INSPECTOR FABRIC regimen:NPH 14 units Q AM, novolog 4 units TID - BS 110-160s last 24 hrs PLAN - continue 14U NPH daily + low dose correction factor Hypothyroidism -TSH1.99 (06/01) PLAN -continuePTAsynthroid 175mcg daily ID Septic Shock HCAP UTI - WBC3.9;afebrile - hxresistant e.coli UTI - per OSH micro tech, no blood cxs were drawn - urine cx (OSH): + e.coli (resitant to cefazolin, ampicillin, levaquin, augmentin,cipro; sensitive to merrem, ceftriaxone & bactrim) - BAL 05/31(OSH): usual upper respiratory rob, tess species -CT chest (OSH): dense L base consolidation - blood cx06/01: NGTD - sputum cx 06/01: GS w/o organisms; cx NGTD - UA06/01: 1+ leuks, + nitrites, 20-50 WBC, few bacteria - urine cx06/02: < 100,000 tess albicans - strep pneumo and legionella urine Ags negative - procalcitonin0.22 (06/01) - no suitable pocket of ascites (on bedside US) for a paracentesis PLAN - continue ceftriaxone and doxycycline x 7 days (through 06/06, stop date ordered) FEN - Regular solids, thin liquids, swallow precautions - tube feedings: dc'd - IVF: none - review electrolytes and replace as needed PPX: Lines: PIV Drains/Tubes: None, corpack dc'd 06/05 Indwelling Urinary Catheter: No DVT: SCDs; Heparin GI: Protonix PT/OT: Yes Insulin: Yes Code Status: Full Code Disposition/Family: Continue admission to med 2 Patient seen and discussed with Dr. Negro Curry PGY-1 Pager [phone] Subjective Deborah Fields is a 62 y.o. female. Patient had an episode of chest pain last night, 7 out of 10, mid chest, worse with inspiration, associated shortness of breath. Patient also with nausea, cough, retching. Stated pain radiated to back and left shoulder, no pain on right. Vital signs are stable. EKG and troponins were ordered, returning atrial fibrillation without evidence of ST change, troponin 0.01. Was assessed this morning, patient continued to have nausea. Patient agreeable with staying for admission given chest pain. Would like to work further with PT/OT, however not here today, would like to work with PT OT tomorrow. Shortness of breath improved, near baseline. Patient notes improved edema. Medications Scheduled Meds: aspirin chewable tablet 81 mg 81 mg Oral QDAY fluconazole (DIFLUCAN) tablet 200 mg 200 mg Oral QDAY folic acid (FOLVITE) tablet 1 mg 1 mg Oral QDAY furosemide (LASIX) tablet 40 mg 40 mg Oral QDAY insulin aspart U-100 (NOVOLOG FLEXPEN) injection PEN 0-7 Units 0-7 Units Subcutaneous ACHS insulin NPH (HUMULIN N KwikPen) injection PEN 14 Units 14 Units Subcutaneous QDAY() levothyroxine (SYNTHROID) tablet 175 mcg 175 mcg Oral QDAY() magnesium oxide (MAG-OX) tablet 400 mg 400 mg Oral BID metoprolol tartrate (LOPRESSOR) tablet 50 mg 50 mg Oral BID pantoprazole DR (PROTONIX) tablet 40 mg 40 mg Oral BID(11-21) potassium chloride SR (K-DUR) tablet 20 mEq 20 mEq Oral QDAY(12) senna (SENOKOT) tablet 2 tablet 2 tablet Oral QHS tiZANidine (ZANAFLEX) tablet 4 mg 4 mg Oral QHS vitamins, multiple tablet 1 tablet 1 tablet Oral QDAY Continuous Infusions: PRN and Respiratory Meds:dextromethorphan/guaiFENesin Q4H PRN, ondansetron ( ZOFRAN) IV Q6H PRN, prochlorperazine Q6H PRN, traMADol Q6H PRN Review of Systems: Constitutional: negative Eyes: negative Ears, nose, mouth, throat, and face: negative Respiratory: Positive for cough Cardiovascular: Positive for chest pain Gastrointestinal: Positive for nausea, retching. Genitourinary:negative Integument/breast: negative Neurologic: Negative Objective: Vital Signs: Last Filed Vital Signs: 24 Hour Range BP: 131/70 (06/08 1144) Temp: 36.6 C (97.9 F) (06/08 1144) Pulse: 84 (06/08 1144) Respirations: 18 PER MINUTE (06/08 1144) SpO2: 94 % (06/08 1144) O2 Delivery: Nasal Cannula (06/08 114) BP: (114-137)/(44-72) Temp: [36.4 C (97.6 F)-36.8 C (98.3 F)] Pulse: [82-104] Respirations: [18 PER MINUTE-24 PER MINUTE] SpO2: [93 %-99 %] O2 Delivery: Nasal Cannula Intensity Pain Scale (Self Report): 5 (06/08/18 0356) Vitals: 06/07/18 0520 06/08/18 0315 06/08/18 0544 Weight: (!) 136.3 kg (300 lb 6.4 oz) (!) 136.5 kg (301 lb) 135.2 kg (298 lb 1.6 oz) Intake/Output Summary: (Last 24 hours) Intake/Output Summary (Last 24 hours) at 06/08/2018 1449 Last data filed at 06/08/2018 0800 Gross per 24 hour Intake 480 ml Output 800 ml Net -320 ml Stool Occurrence: 0 Physical Exam General Appearance: Appears overweight well nourished, stated age and in no distress PSYCH: Normal behavior, goal directed thinking, normal speech (rate and volume) HEENT: Normocephalic and atraumatic, mucous membranes moist. Tongue erythematous and swollen, no thrush visible. Sclera anicteric bilaterally. CV: S1 S2 RRR. No murmurs, rubs, clicks, gallops or S4. Distal extremities warm without cyanosis or clubbing. Radial pulses 2+ bilaterally and symmetric. No parasternal heaves. PULM: Fine crackles at BL anterior bases, no wheezes, rhonchi, increased effort of breathing or diminished lung sounds. Speaks in complete sentences. ABD: Soft, obese, NTTP EXT: 2+ pitting edema to BLE and 1+ to BUE (L>R). No obvious deformity to BLE. SKIN: Warm and dry to touch. Pallor noted. NEURO: Tone grossly normal, cranial nerves 2-12 grossly intact, tracks to voice. Alert and interactive. Lab Review 24-hour labs: Results for orders placed or performed during the hospital encounter of (from the past 24 hour(s)) POC GLUCOSE Collection Time: 06/07/18 5:52 PM Result Value Ref Range Glucose, POC 119 (H) 70 - 100 MG/DL POC GLUCOSE Collection Time: 06/07/18 8:45 PM Result Value Ref Range Glucose, POC 127 (H) 70 - 100 MG/DL POC GLUCOSE Collection Time: 06/08/18 3:15 AM Result Value Ref Range Glucose, POC 110 (H) 70 - 100 MG/DL HEMOGLOBIN Collection Time: 06/08/18 4:45 AM Result Value Ref Range Hemoglobin 8.8 (L) 12.0 - 15.0 GM/DL BASIC METABOLIC PANEL Collection Time: 06/08/18 4:45 AM Result Value Ref Range Sodium 135 (L) 137 - 147 MMOL/L Potassium 4.1 3.5 - 5.1 MMOL/L Chloride 99 98 - 110 MMOL/L CO2 32 (H) 21 - 30 MMOL/L Anion Gap 4 3 - 12 Glucose 111 (H) 70 - 100 MG/DL Blood Urea Nitrogen 30 (H) 7 - 25 MG/DL Creatinine 1.16 (H) 0.4 - 1.00 MG/DL Calcium 9.2 8.5 - 10.6 MG/DL eGFR Non 48 (L) >60 mL/min eGFR 58 (L) >60 mL/min TROPONIN-I Collection Time: 06/08/18 4:45 AM Result Value Ref Range Troponin-I 0.01 0.0 - 0.05 NG/ML POC GLUCOSE Collection Time: 06/08/18 8:08 AM Result Value Ref Range Glucose, POC 103 (H) 70 - 100 MG/DL POC GLUCOSE Collection Time: 06/08/18 12:40 PM Result Value Ref Range Glucose, POC 106 (H) 70 - 100 MG/DL Point of Care Testing (Last 24 hours) Glucose: (!) 111 (06/08/18 0445) POC Glucose (Download): (!) 106 (06/08/18 1240) Radiology and other Diagnostics Review: Pertinent radiology reviewed. Surya Curry MD Pager [phone] ER MAKER Associated attestation - Negro Tom MD - 06/08/2018 4:30 PM MARKER MAKER I personally performed the dempsey portions of the E/M visit, discussed case with Med II team and Dr Curry concur with his documentation of history, physical exam, assessment, and treatment plan unless otherwise outlined with my notations. Negro Tom MD Department of Internal Medicine, Hospitalist [phone] * Analia Bee, THOMPSON - 06/08/2018 6:06 AM MARKER MAKER 2300: No AM labs ordered for tomorrow. Med2 notified & labs ordered. 0440: PT c/o chest tightness. 12/22. Mid chest. Worse with inspiration. Feels slightly more SOA than baseline. Pt has been coughing a lot tonight. Just gave robitussin & IV lasix. Radiates to left shoulder. Tender to palpation. Clear to ausculation. Tele still SR. VSS. Nausea present. Edema in legs has increased slightly over night to +3 vs. +2 earlier in night. Pt states this feels similar to chest pain during last heart attack. Dr. العلي notified- EKG and trop ordered. 0530: EKG resulted with Afib- pt has been SR all shift but has been in and out of AF this hosp stay. Trop resulted 0.01. Dr. العلي updated. Shift: Night Neuro: A&Ox4 Cardiac: S1, S2; SR/AFib on tele; VSS Pulm: 2L NC; continuous pulse ox GI/: voids/incont; adequate UOP; LBM: 06/05 Nutrition: Cardiac/ADA diet Activity: BR this shift; Q2 turns Pain: Back pain controlled with Tramadol; chest pain as noted above Family: at bedside Follow up: d/c plan ongoing Heart Failure Nursing Progress Note Admission Date: 06/01/2018 LOS: 7 days Admission Weight: 132 kg (291 lb 0.1 oz) Most recent weights (inpatient): Vitals: 06/07/18 0520 06/08/18 0315 06/08/18 0544 Weight: (!) 136.3 kg (300 lb 6.4 oz) (!) 136.5 kg (301 lb) 135.2 kg (298 lb 1.6 oz) Weight change from previous day: -1.3kg Fluid restriction ordered: None ordered Intake/Output Summary: (Last 24 hours) Intake/Output Summary (Last 24 hours) at 06/08/2018 0605 Last data filed at 06/08/2018 0544 Gross per 24 hour Intake 1338 ml Output 1400 ml Net -62 ml Anticipated discharge date: ongoing Discharge goals: no more chest pain Daily Assessment of Patient Stated Goals: Short Term Goal Identified by patient (Short Term=during hospitalization): Contorl HF and swelling/SOA ER MAKER * Ruby Conte, THOMPSON - 06/08/2018 3:10 AM MARKER MAKER Pt requesting medication for cough. Unable to sleep. paged at [phone]. Received orders from Dr. العلي at 0315 for dextromethorphan/guaifenesin 10mL oral syrup Q4H PRN 0545--Pt complaining of severe nausea and dry heaving. MD garnica. Received orders from Dr. العلي at 0544 for IV Zofran 4mg Q6H ER MAKER * Debo Oliveros RN - 06/07/2018 6:09 PM MARKER MAKER At approx 0910 Pt R IJ was remvoed without any problem. Catheter tip intact. Site with minimal bleeding. Place 4x4 dressing and tegaderm over the site. Pt tolerated well. Will cont to monitor. ER MAKER * Lakeisha Cox RT - 06/07/2018 5:05 PM MARKER MAKER RT Adult Assessment Note NAME:Deborah Fields :1955 AGE: 62 y.o. ADMISSION DATE: 06/01/2018 DAYS ADMITTED: LOS: 6 days RT Treatment Plan: Protocol Plan: Procedures Oxygen/Humidity: O2 to keep SpO2 > 92% Monitoring: Pulse oximetry BID & PRN Vital Signs: Pulse: Pulse: 82 RR: Respirations: 18 PER MINUTE SpO2: SpO2: 96 % O2 Device: $$ O2 Device: Cannula Liter Flow: O2 Liter Flow: 2 lpm O2%: Breath Sounds: Respiratory Effort: Respiratory Effort: Non-Labored ER MAKER * Aubrie Forman - 06/07/2018 2:29 PM MARKER MAKER CLINICAL NUTRITION Clinical Nutrition Assessment Summary NAME:Deborah Fields :1955 AGE: 62 y.o. ADMISSION DATE: 06/01/2018 DAYS ADMITTED: LOS: 6 days Nutrition Assessment of Patient: BMI Categories Adult: Obesity Class III: 40 and over(47.23 current wt) Unintentional Weight Loss: (remains above usual body weight range) Malnutrition Assessment: Does not meet criteria Current Oral Intake: Marginally Adequate Estimated Calorie Needs: 7117-4502(23-25 kcal/kg desired wt of 65.8 kg) Estimated Protein Needs: 79(1.2 g/kg desired wt of 65.8 kg) Oral Diet Order: NPO Comments: 62 yo F with hx including CAD s/p CABG 02/2018, combined HF, afib s/p L atrial appendage ligation not on AC d/t recurrent GIBs c/b transfusion-dependent anemia , HTN, DM, CKD, hypothyroidism, morbid obesity & liver disease c/b portal HTN, EV, GAVE & ascites. She was transferred from [facility] on 06/01 after presenting there on 05/30 for syncope/fatigue. Admit c/b AMS/respiratory failure requiring intubation, afib w/ RVR & septic shock from HCAP + UTI. Has since been extubated (06/02 AM), shock resolved. Diuresis resumed. COMMERCIAL INSURANCE UNDERWRITER cleared pt for regular diet and thin liquids. Pt was briefly on EN while intubated, now tolerating a regular diet. She reports she still doesn't have great appetite. She had 25% of an omelet for breakfast. For lunch she ordered apple, banana, custard, and jello. Pt asked about hard boiled eggs, RD overrided menu to allow for pt to have hard boiled eggs on cardiac diet. INSPECTOR FABRIC she reported her appetite has generally been low and poor for several weeks. Claims to only have had jello most days and reports usual routine of chewing on ice throughout the day (2/2 VICKY). Admits to not following any diet guidelines or self-monitoring fluid intakes, etc. Also admits to not weighing self at home 2/2 frequent doctor visits/weights there. RD encouraged cardiac diet emphasizing low sodium and diabetic diet. Pt reports eating several high sodium foods and eating out frequently. 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 Per RN pt was asking for salt from yesterday. Pt has BLE pitting +2 and BLE non pitting edema. RD discussed importance and encouraged better compliance. Denies any GI distress though does tend toward constipation; +BM 06/05. Endorses usual weight range closer to 240-250# (admit wt listed at 291# and most [id number]#). No pressure injuries noted. Will likely benefit from ongoing diet rationale/education for reinforcement once. Clinical Nutrition Education Summary Education on Low Sodium Diet was provided. Topics included the following: ? Indications for diet ? Sodium limit of 2,000 milligrams daily ? Foods recommended/not recommended ? Sodium content of foods (examples) ? Reading food labels ? Food preparation suggestions ? Sodium-free seasonings ? Sample meals and snacks ? Eating out tips Written materials were provided. Learner(s): patient Learner's Response: Verbalized understanding of dempsey dietary guidelines taught. Recommendation: Please reinforce 2000 mg sodium restriction as pt is likely noncompliant Intervention / Plan: RD encourage oral intakes. RD discussed DM and low sodium diet RD will monitor tolerance and adequacy of PO intakes RD will monitor wts, labs, meds, and GI function Nutrition Diagnosis: Undesirable food choices Etiology: likely high sodium intake Signs & Symptoms: diet recall Goals: EN tolerated and meeting >85% of nutritional needs Time Frame: Within 48 Hours Status: no longer appropriate;new goal established Transition from enteral to oral Time Frame: Within 5 Days Status: Met Patient to consume >50% of meals/supplements Time Frame: Within [address], LD *[id number] ER MAKER * Surya Curry MD - 06/07/2018 11:06 AM MARKER MAKER General Progress Note Name: Deborah Norris Donnie Today's Date: 06/07/2018 Admission Date: 06/01/2018 LOS: 6 days Assessment/Plan: Active Problems: Type 2 diabetes mellitus with circulatory disorder, without long-term 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 (HCC) PAF (paroxysmal atrial fibrillation) (HCC) Atrial fibrillation with rapid ventricular response (HCC) Chronic gastrointestinal bleeding HLD (hyperlipidemia) Essential hypertension Acute on chronic diastolic heart failure due to coronary artery disease (HCC) Morbid obesity (HCC) Interval: - Continue doxy and rocephin through 06/06 for HCAP and e.coli UTI - Extra IV lasix 40mg given twice, goal net negative 1-2L in 24h - Removal of CVC and placement of PIV to be done by IV team - Diflucan 200mg x 7d (06/06 - ) for oral thrush and vaginal yeast infxn - PT surgical appliances salesperson paged to request assessment and therapy today 06/07 NEURO Acute Encephalopathy (resolved) - developed AMS the day of admit to OSH in the setting of septic shock -CT head (OSH): no acute process - ammonia level 95 (06/02) - on exam, pt is alert and answers on 06/06 PLAN -continue PTAtizanidine and tramadol PULM Acute Hypercarbic& HypoxemicRespiratoryFailure (Improving) L Pleural Effusion - d/t HCAP -CT chest (OSH):circumferentialLpleural effusion&densely consolidatedLbasew/air bronchograms - extubated 06/02 - currently on 3 L/NC, O2 sat 98% as of 06/06, was discharged home on 04/08 on room air from HF service, but states she had 2L O2 prior to admission PLAN - Continue PO lasix 40mg daily - Will give an additional IV lasix 40mg twice 06/06- CV Chronic CombinedHF CAD, HTN -s/p CABG x 4 02/2018 - echo04/01: LVEF 55-60%, dilated RV with hypocontractility, severeRA enlargement,moderate TR, moderate LAenlargement, +intra-atrial PFO with bidirectional shunt, s/p left atrial appendage ligation - repeat echo 06/02/18: LVEF 50-55%, no regional wall motion abnormalities; RV mildly dilated but function probably normal; mild to moderate MR; mild to moderate TR; peak PAP 41 mmHg; no pericardial effusion - EKG:no ST changes - troponin negative x 2 - BNP 247 (prior ) - INSPECTOR FABRIC lasix 40 mg daily, but then given IVF when hypotensive overnight PLAN -continue INSPECTOR FABRIC ASA & lasix - Additional IV lasix 40mg once 06/06 Septic Shock(resolved) - arrived to on pressor, but essentially stopped immediately -central venous O2 sat 84% - hypotensive overnight and briefly on dopamine (d/t bradycardia) -- off since ~ 0200 - SBP 100-140s Bradycardia; ChronicAfib/Flutter s/p Atrial Appendage Ligation - no INSPECTOR FABRIC ACd/trecurrent GIBs - received amiodarone load at OSH & continued on a drip --> dc'd 06/02 - EKG 06/03 AM: aflutter, rate 79, QTc 445 - EKG 06/04 PM: aflutter, rate 81, QTc 421 - HR as low as 40s overnight --> given atropine x 2, IVF, and started on dopamine drip --> able to wean off dopamine ~ 0200 PLAN -continuePTAmetoprololat reduced dose of 50 mg BID(INSPECTOR FABRIC dose is 100 mg BID) -hold INSPECTOR FABRIC diltiazem for bradycardia on 06/05 GI GAVE Transfusion-DependentAnemia - follows withKUGI - EGD1: 3 columns of smallEV,portal HTN gastropathy &mild GAVE - hgb 8.5 on 06/04 --> stable ~7.4 - plt 107 PLAN -continuePTA PPI Liver Disease -c/bportalHTN, congestive colopathy, EV,GAVE&ascites - limited prior w/u; was to see hepatology in clinic in June - 02/2018: diffuse hepatic steatosis - EGD as above - MELD-Na 10 Dysphagia - Moderate oropharyngeal dysphagia per COMMERCIAL INSURANCE UNDERWRITER - Corpak be removed and she be allowed to eat; pt aware of risk of aspiration - COMMERCIAL INSURANCE UNDERWRITER recs 06/05: Continue regular solids, thin liquids RENAL DELROY on CKD (resolved) - baseline Cr 1.3 - Cr 2.4 on arrival at OSH --> 1.3 this AM 06/06 - Will avoid nephrotoxins, renally dose meds, strict I/Os ENDO DM2 -INSPECTOR FABRIC regimen:NPH 14 units Q AM, novolog 4 units TID - BS 110-160s last 24 hrs PLAN - continue 14U NPH daily + low dose correction factor Hypothyroidism -TSH1.99 (06/01) PLAN -continuePTAsynthroid 175mcg daily ID Septic Shock HCAP UTI - WBC3.9;afebrile - hxresistant e.coli UTI - per OSH micro tech, no blood cxs were drawn - urine cx (OSH): + e.coli (resitant to cefazolin, ampicillin, levaquin, augmentin,cipro; sensitive to merrem, ceftriaxone & bactrim) - BAL 05/31(OSH): usual upper respiratory rob, tess species -CT chest (OSH): dense L base consolidation - blood cx06/01: NGTD - sputum cx 06/01: GS w/o organisms; cx NGTD - UA06/01: 1+ leuks, + nitrites, 20-50 WBC, few bacteria - urine cx06/02: < 100,000 tess albicans - strep pneumo and legionella urine Ags negative - procalcitonin0.22 (06/01) - no suitable pocket of ascites (on bedside US) for a paracentesis PLAN - continue ceftriaxone and doxycycline x 7 days (through 06/06, stop date ordered) FEN - Regular solids, thin liquids, swallow precautions - tube feedings: dc'd - IVF: none - review electrolytes and replace as needed PPX: Lines: DC CVC on 06/[address] PIV Drains/Tubes: None, corpack dc'd 06/05 Indwelling Urinary Catheter: No DVT: SCDs; Heparin GI: Protonix PT/OT: Yes Insulin: Yes Code Status: Full Code Disposition/Family: Continue admission to med 2 with tentative DC tomorrow . Paged PT to work with patient today in preparation for discharge. Patient seen and discussed with Dr. Negro Curry PGY-1 Pager [phone] Subjective Deborah Fields is a 62 y.o. female. No events overnight. Patient says SOB and edema are improving mildly. Tongue pain and vaginal itching unchanged from yesterday. Patient has been up on the side of bed, but not OOB. Reports being on 2L O2 prior to admission, currently also on 2L O2. Patient is eager to d/c. Discussed disposition with patient, it is possible that she may need to stay inpatient, but would prefer to leave if possible. Medications Scheduled Meds: aspirin chewable tablet 81 mg 81 mg Oral QDAY fluconazole (DIFLUCAN) tablet 200 mg 200 mg Oral QDAY folic acid (FOLVITE) tablet 1 mg 1 mg Oral QDAY furosemide (LASIX) tablet 40 mg 40 mg Oral QDAY insulin aspart U-100 (NOVOLOG FLEXPEN) injection PEN 0-7 Units 0-7 Units Subcutaneous ACHS insulin NPH (HUMULIN N KwikPen) injection PEN 14 Units 14 Units Subcutaneous QDAY() levothyroxine (SYNTHROID) tablet 175 mcg 175 mcg Oral QDAY() magnesium oxide (MAG-OX) tablet 400 mg 400 mg Oral BID metoprolol tartrate (LOPRESSOR) tablet 50 mg 50 mg Oral BID pantoprazole DR (PROTONIX) tablet 40 mg 40 mg Oral BID(-) potassium chloride SR (K-DUR) tablet 20 mEq 20 mEq Oral QDAY() tiZANidine (ZANAFLEX) tablet 4 mg 4 mg Oral QHS vitamins, multiple tablet 1 tablet 1 tablet Oral QDAY Continuous Infusions: PRN and Respiratory Meds:traMADol Q6H PRN Review of Systems: Review of Systems A comprehensive 10 point review of systems was reviewed and was negative except for the following (in bold): Pertinent negatives are listed in non-bolded text Constitional: Fever, chills, unintentional weight change, night sweats Neuro: Headache, visual disturbance, weakness CV: Chest pain/pressure, lightheadedness, edema PULM: Shortness of breath, cough, hemoptysis GI: Nausea, vomiting, abdominal pain, constipation, diarrhea : Dysuria, polyuria Skin: Right CVC irritation Objective: Vital Signs: Last Filed Vital Signs: 24 Hour Range BP: 126/54 (06/07 843) Temp: 36.7 C (98 F) (06/07 843) Pulse: 81 (06/07 843) Respirations: 20 PER MINUTE (06/07 843) SpO2: 98 % (06/07 843) O2 Delivery: None (Room Air) (06/07 843) BP: (104-127)/(47-67) Temp: [36.3 C (97.4 F)-36.7 C (98 F)] Pulse: [81-99] Respirations: [16 PER MINUTE-20 PER MINUTE] SpO2: [97 %-100 %] O2 Delivery: None (Room Air) Vitals: 06/05/18 0600 06/06/18 0500 06/07/18 0520 Weight: 132 kg (291 lb 0.1 oz) (!) 137.8 kg (303 lb 14.4 oz) (!) 136.3 kg (300 lb 6.4 oz) Intake/Output Summary: (Last 24 hours) Intake/Output Summary (Last 24 hours) at 06/07/2018 1106 Last data filed at 06/07/2018 0508 Gross per 24 hour Intake Output 1150 ml Net -1150 ml Stool Occurrence: 0 Physical Exam General Appearance: Appears overweight well nourished, stated age and in no distress PSYCH: Normal behavior, goal directed thinking, normal speech (rate and volume) HEENT: Normocephalic and atraumatic, mucous membranes moist. Tongue erythematous and swollen, no thrush visible. Sclera anicteric bilaterally. CV: S1 S2 RRR. No murmurs, rubs, clicks, gallops or S4. Distal extremities warm without cyanosis or clubbing. Radial pulses 2+ bilaterally and symmetric. No parasternal heaves. PULM: Fine crackles at BL anterior bases, no wheezes, rhonchi, increased effort of breathing or diminished lung sounds. Speaks in complete sentences. ABD: Soft, obese, NTTP EXT: 2+ pitting edema to BLE and 1+ to BUE (L>R). No obvious deformity to BLE. SKIN: Warm and dry to touch. Pallor noted. NEURO: Tone grossly normal, cranial nerves 2-12 grossly intact, tracks to voice. Alert and interactive. Lab Review 24-hour labs: Results for orders placed or performed during the hospital encounter of (from the past 24 hour(s)) POC GLUCOSE Collection Time: 06/06/18 4:34 PM Result Value Ref Range Glucose, POC 131 (H) 70 - 100 MG/DL BASIC METABOLIC PANEL Collection Time: 06/06/18 5:00 PM Result Value Ref Range Sodium 136 (L) 137 - 147 MMOL/L Potassium 3.7 3.5 - 5.1 MMOL/L Chloride 100 98 - 110 MMOL/L CO2 33 (H) 21 - 30 MMOL/L Anion Gap 3 3 - 12 Glucose 139 (H) 70 - 100 MG/DL Blood Urea Nitrogen 32 (H) 7 - 25 MG/DL Creatinine 1.19 (H) 0.4 - 1.00 MG/DL Calcium 9.0 8.5 - 10.6 MG/DL eGFR Non 46 (L) >60 mL/min eGFR 56 (L) >60 mL/min MAGNESIUM Collection Time: 06/06/18 5:00 PM Result Value Ref Range Magnesium 1.8 1.6 - 2.6 mg/dL POC GLUCOSE Collection Time: 06/06/18 9:11 PM Result Value Ref Range Glucose, POC 139 (H) 70 - 100 MG/DL POC GLUCOSE Collection Time: 06/07/18 3:10 AM Result Value Ref Range Glucose, POC 168 (H) 70 - 100 MG/DL PHOSPHORUS Collection Time: 06/07/18 3:24 AM Result Value Ref Range Phosphorus 2.6 2.0 - 4.5 MG/DL MAGNESIUM Collection Time: 06/07/18 3:24 AM Result Value Ref Range Magnesium 1.9 1.6 - 2.6 mg/dL COMPREHENSIVE METABOLIC PANEL Collection Time: 06/07/18 3:24 AM Result Value Ref Range Sodium 137 137 - 147 MMOL/L Potassium 4.3 3.5 - 5.1 MMOL/L Chloride 101 98 - 110 MMOL/L Glucose 194 (H) 70 - 100 MG/DL Blood Urea Nitrogen 32 (H) 7 - 25 MG/DL Creatinine 1.20 (H) 0.4 - 1.00 MG/DL Calcium 8.6 8.5 - 10.6 MG/DL Total Protein 5.5 (L) 6.0 - 8.0 G/DL Total Bilirubin 0.4 0.3 - 1.2 MG/DL Albumin 2.6 (L) 3.5 - 5.0 G/DL Alk Phosphatase 38 25 - 110 U/L AST (SGOT) 14 7 - 40 U/L CO2 34 (H) 21 - 30 MMOL/L ALT (SGPT) 6 (L) 7 - 56 U/L Anion Gap 2 (L) 3 - 12 eGFR Non 46 (L) >60 mL/min eGFR 55 (L) >60 mL/min CBC AND DIFF Collection Time: 06/07/18 3:24 AM Result Value Ref Range White Blood Cells 3.4 (L) 4.5 - 11.0 K/UL RBC 2.27 (L) 4.0 - 5.0 M/UL Hemoglobin 7.1 (L) 12.0 - 15.0 GM/DL Hematocrit 21.7 (L) 36 - 45 % MCV 95.7 80 - 100 FL MCH 31.3 26 - 34 PG MCHC 32.7 32.0 - 36.0 G/DL RDW 17.0 (H) 11 - 15 % Platelet Count 107 (L) 150 - 400 K/UL MPV 8.3 7 - 11 FL Neutrophils 62 41 - 77 % Lymphocytes 20 (L) 24 - 44 % Monocytes 11 4 - 12 % Eosinophils 6 (H) 0 - 5 % Basophils 1 0 - 2 % Absolute Neutrophil Count 2.20 1.8 - 7.0 K/UL Absolute Lymph Count 0.70 (L) 1.0 - 4.8 K/UL Absolute Monocyte Count 0.40 0 - 0.80 K/UL Absolute Eosinophil Count 0.20 0 - 0.45 K/UL Absolute Basophil Count 0.00 0 - 0.20 K/UL POC GLUCOSE Collection Time: 06/07/18 7:52 AM Result Value Ref Range Glucose, POC 157 (H) 70 - 100 MG/DL Point of Care Testing (Last 24 hours) Glucose: (!) 194 (06/07/18 0324) POC Glucose (Download): (!) 157 (06/07/18 7531) Radiology and other Diagnostics Review: Pertinent radiology reviewed. Surya Curry MD Pager [phone] ER MAKER Associated attestation - Negro Tom MD - 06/07/2018 5:08 PM MARKER MAKER I personally performed the dempsey portions of the E/M visit, discussed case with Med II team and Dr Curry concur with his documentation of history, physical exam, assessment, and treatment plan unless otherwise outlined with my notations. Negro Tom MD Department of Internal Medicine, Hospitalist [phone] * Georgia Mason - 06/07/2018 10:17 AM MARKER MAKER SPEECH-LANGUAGE PATHOLOGY NO TREATMENT NOTE Per EMR and discussion with RN, pt may d/c today. RN reports good toleration of PO diet and no difficulty swallowing medications. Speech therapy will sign off at this time. Therapist: Skye Chris/HERNAN-COMMERCIAL INSURANCE UNDERWRITER (Pager [phone]; Voalte: [phone]) Date: 06/07/2018 ER MAKER * Vania Shafer PT - 06/07/2018 9:37 AM MARKER MAKER PHYSICAL THERAPY PROGRESS NOTE MOBILITY: Mobility Progressive Mobility Level: Active transfer to chair Level of Assistance: Assist X2 Assistive Device: Hand Held;Walker Time Tolerated: 11-30 minutes Activity Limited By: Fatigue;Weakness SUBJECTIVE: Subjective Significant hospital events: PMH significant for CAD s/p CABG 02/2018, combined HF, afib s/p L atrial appendage ligation not on AC d/t recurrent GIBs c/b transfusion-dependent anemia, HTN, DM, CKD, hypothyroidism, morbid obesity & liver disease c/b portal HTN, congestive colopathy, EV, GAVE & ascites. She was transferred from [facility] on 06/01 after presenting there on 05/30 for syncope/fatigue. Admit c/b AMS/respiratory failure requiring intubation, afib w/ RVR & septic shock from HCAP + UTI. On arrival, NE was able to be stopped & she was extubated 06/02 AM. Transfer to floor on 06/05. Mental / Cognitive Status: Alert;Oriented;Cooperative;Follows Commands Persons Present: Occupational Therapist Pain: Patient has no complaint of pain Pain Interventions: Patient agrees to participate in therapy Comments: 2L O2 NC Ambulation Assist: Independent Mobility at Household Level with Device Patient Owned Equipment: Roller Walker Home Situation: Lives with Family Type of Home: House Entry Stairs: Ramp In-Home Stairs: No Stairs Comments: Reports being able to get around house but with SOA. Was lately just put on 2L 02 NC at home a week ago. Fell off toilet in bathroom. Transfer from [facility]. BED MOBILITY/TRANSFERS: Bed Mobility/Transfers Bed Mobility: Supine to Sit: Minimal Assist;Head of Bed Elevated;Use of Rail Comments: Sitting up in bedside chair with TABS alarm activated and call light within reach. Transfer Type: Sit to/from Stand Transfer: Assistance Level: From;Bed;To;Bed Side Chair;Minimal Assist;x2 People Transfer: Assistive Device: None Transfers: Type Of Assistance: For Balance;For Strength Deficit;For Safety Considerations Other Transfer Type: Sit to/from Stand Other Transfer: Assistance Level: Bed;To/From;Bed Side Chair;Minimal Assist Other Transfer: Assistive Device: Roller Walker Other Transfer: Type Of Assistance: For Balance;For Strength Deficit;For Safety Considerations End Of Activity Status: Up in Chair;Nursing Notified;Instructed Patient to Request Assist with Mobility;Instructed Patient to Use Call Light ASSESSMENT/PROGRESS: Assessment/Progress Impaired Mobility Due To: Decreased Strength;Decreased Activity Tolerance; Deconditioning;Medical Status Limitation Assessment/Progress: Should Improve w/ Continued PT Comments: Patient demonstrates improved mobility; however, continues to be limited by decreased strength, balance, and activity tolerance. Will benefit from ongoing therapy. AM-PAC 6 Clicks Basic Mobility Inpatient Turning [...] Little To walk in hospital room: A Lot Climbing 3-5 steps with a railing: Total Raw Score: 15 Standardized (T-scale) Score: 36.97 Basic Mobility CMS 0-100%: 50.4 CMS G Code Modifier for Basic Mobility: CK GOALS: Goals Goal Formulation: With Patient Time For Goal Achievement: 5 days Pt Will Go Supine To/From Sit: w/ Minimal Assist, Met, New Goal, w/ Stand By Assist Pt Will Transfer Bed/Chair: w/ Stand By Assist, Ongoing Pt Will Transfer Sit to Stand: w/ Stand By Assist, Ongoing Pt Will Ambulate: 1-10 Feet, w/ Walker, w/ Minimal Assist, Ongoing PLAN: Plan Treatment Interventions: Mobility Training;Strengthening Plan Frequency: 5 Days per Week PT Plan for Next Visit: Pre-gait training, standing balance/tolerance, increase time out of bed. RECOMMENDATIONS: PT Discharge Recommendations PT Discharge Recommendations: Inpatient Setting Therapist: Vania Shafer PT, DPT [id number] Date: 06/07/2018 ER MAKER * Jeffry Ruiz, OT - 06/07/2018 9:37 AM MARKER MAKER OCCUPATIONAL THERAPY PROGRESS NOTE Patient Name: Deborah Feilds Room/Bed: [place] [address] Admitting Diagnosis: Resp failure Mobility Progressive Mobility Level: Active transfer to chair Level of Assistance: Assist X2 Assistive Device: Hand Held;Walker Time Tolerated: 11-30 minutes Activity Limited By: Fatigue;Weakness Subjective Pertinent Dx per Physician: PMH CAD s/p CABG 02/2018, HF, afib s/p L atrial appendage ligation not on AC d/t recurrent GIBs c/b transfusion-dependent anemia , liver disease c/b portal HTN, congestive colopathy, EV, GAVE & ascites. Admitted as transfer 06/01 after presenting there on 05/30 for syncope/fatigue. Admit c/b AMS/respiratory failure requiring intubation, afib w/ RVR & septic shock from HCAP + UTI. Extubated 06/02. Precautions: Falls;O2 Requirement Comments: 2L O2 NC Pain / Complaints: Patient agrees to participate in therapy Objective Psychosocial Status: Willing and Cooperative to Participate Persons Present: Physical Therapist Home Living Type of Home: House Home Layout: One Level;Ramped Entrance Bathroom Shower / Tub: Walk-in Shower Home Equipment: Walker Prior Function Level Of [place]: Independent with ADLs and functional transfers Lives With: Spouse Receives Help From: None Needed Other Function Comments: Pt reports 2 recent falls in the bathroom, falling while trying to transfer off the toilet. ADL's Where Assessed: Edge of Bed;Chair LE Dressing Assist: Total Assist LE Dressing Deficits: Don/Doff R Sock;Don/Doff L Sock Functional Transfer Assist: Minimal Assist(x2) Functional Transfer Deficits: Supervision/Safety;Steadying Comment: Supine to EOB minimal assist pull to sit. Total assist roosevelt BLE socks seated EOB. Initial sit to stand with hand held minimal assist x2 pt able to side step to bed side chair. Pt returns from bedside chair to EOB with minimal assist and use of roller walker. Therapy sets up additional bed side chair to allow pt more upright position. Second transfer from EOB to bedside chair minimal assist with use of roller walker. Pt remains upright in bedside chair with all needs met and chair alarm activated. Cognition Overall Cognitive Status: WFL to Adequately Complete Self Care Tasks Safely Memory: WFL Adequate to Recall Day to Day Activities Orientation: Alert & Oriented x4 Attention: Awake/Alert Assessment Assessment: Decreased ADL Status;Decreased UE Strength;Decreased Safe/Judg during ADL;Decreased Cognition;Decreased Endurance;Decreased Self-Care Trans; Decreased Fine Motor Coordination;Decreased High-Level ADLs Goal Formulation: Patient Comments: Pt limited this date by weakness however demonstrates improved mental status and functional mobility. Second person standby assist for safety 2/2 pt reports knees buckle at random times. AM-PAC 6 Clicks Daily Activity Inpatient Putting on and taking off regular lower body clothes?: Total Bathing (Including washing, rinsing, drying): A Lot Toileting, which includes using toilet, bedpan, or urinal: Total Putting on and taking off regular upper body clothing: A Lot Taking care of personal grooming such as brushing teeth: None Eating meals?: None Daily Activity Raw Score: 14 Standardized (t-scale) score: 33.39 CMS 0-100% Score: 59.67 CMS G Code Modifier: CK Plan OT Frequency: 5x/week OT Plan for Next Visit: Progress independence in funcitonal mobility, toietling with clothing mangement and BSC ADL Goals Patient Will Perform Grooming: at Edge of Bed;in Chair;w/ Stand By Assist Patient Will Perform LE Dressing: w/ Minimum Assist Patient Will Perform Toileting: w/ Minimum Assist Functional Transfer Goals Pt Will Perform All Functional Transfers: Minimum Assist OT Discharge Recommendations OT Discharge Recommendations: Inpatient Setting Equipment Recommendations: Too early to be determined Therapist: LYNN Valero/Skye [id number] Date: 06/07/2018 ER MAKER * Stacie Moreno RN - 06/07/2018 8:29 AM MARKER MAKER Order received to remove the right IJ acute care catheter, okay for the floor nurse to remove, this is not a tunneled line. Debo MACKAY advised. ER MAKER * Mindy Milton RN - 06/07/2018 6:03 AM MARKER MAKER Heart Failure Nursing Progress Note Admission Date: 06/01/2018 LOS: 6 days Admission Weight: 132 kg (291 lb 0.1 oz) Most recent weights (inpatient): Vitals: 06/05/18 0600 06/06/18 0500 06/07/18 0520 Weight: 132 kg (291 lb 0.1 oz) (!) 137.8 kg (303 lb 14.4 oz) (!) 136.3 kg (300 lb 6.4 oz) Weight change from previous day: Less 3 lbs Fluid restriction ordered: No Intake/Output Summary: (Last 24 hours) Intake/Output Summary (Last 24 hours) at 06/07/2018 0603 Last data filed at 06/07/2018 0508 Gross per 24 hour Intake 480 ml Output 1375 ml Net -895 ml Is patient incontinent No Anticipated discharge date: TBD Discharge goals: Keep extra fluids off Daily Assessment of Patient Stated Goals: Short Term Goal Identified by patient (Short Term=during hospitalization): Less SOA with activities Shift: Night Cardiac: Afib to SR on tele monitor Respiratory: SOA with exertion Nutrition: Tolerating po. NPO since MN. Activity: Turned and repositioned q2hr Pain: Denies pain GI/: No reported stool this shift Family: Spouse at bedside Follow up: Continue plan of care ER MAKER * Debo Oliveros RN - 06/06/2018 6:46 PM MARKER MAKER At approx [address] Garza that pt does have PIV in the L forearm. R IJ is still in placed d/t pt transfer from OSH and no record of xray report found. ER MAKER * Anne-Marie Garza MD - 06/06/2018 12:34 PM MARKER MAKER General Progress Note Name: Deborah Fields Today's Date: 06/06/2018 Admission Date: 06/01/2018 LOS: 5 days Assessment/Plan: Active Problems: Type 2 diabetes mellitus with circulatory disorder, without long-term 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 (HCC) PAF (paroxysmal atrial fibrillation) (HCC) Atrial fibrillation with rapid ventricular response (HCC) Chronic gastrointestinal bleeding HLD (hyperlipidemia) Essential hypertension Acute on chronic diastolic heart failure due to coronary artery disease (HCC) Sepsis (HCC) Morbid obesity (HCC) Acute hypoxemic respiratory failure (HCC) Interval: - Continue doxy and rocephin through 06/06 for HCAP and e.coli UTI - Extra IV lasix 40mg given once, repeat BMP and Mag @ 16:00, goal net negative 1-2L in 24h - Removal of CVC and placement of PIV - Diflucan 200mg x 7d (06/06 - ) for oral thrush and vaginal yeast infxn - PT surgical appliances salesperson paged to request assessment and therapy today 06/06 NEURO Acute Encephalopathy (resolved) - developed AMS the day of admit to OSH in the setting of septic shock -CT head (OSH): no acute process - ammonia level 95 (06/02) - on exam, pt is alert and answers on 06/06 PLAN -continue PTAtizanidine and tramadol PULM Acute Hypercarbic& HypoxemicRespiratoryFailure (Improving) L Pleural Effusion - d/t HCAP -CT chest (OSH):circumferentialLpleural effusion&densely consolidatedLbasew/air bronchograms - extubated 06/02 - currently on 3 L/NC, O2 sat 98% as of 06/06, was discharged home on 04/08 on room air from service PLAN - Continue PO lasix 40mg daily - Will give an additional IV lasix 40mg once 06/06 CV Chronic CombinedHF CAD, HTN -s/p CABG x 4 02/2018 - echo04/01: LVEF 55-60%, dilated RV with hypocontractility, severeRA enlargement,moderate TR, moderate LAenlargement, +intra-atrial PFO with bidirectional shunt, s/p left atrial appendage ligation - repeat echo 06/02/18: LVEF 50-55%, no regional wall motion abnormalities; RV mildly dilated but function probably normal; mild to moderate MR; mild to moderate TR; peak PAP 41 mmHg; no pericardial effusion - EKG:no ST changes - troponin negative x 2 - BNP 247 (prior ) - INSPECTOR FABRIC lasix 40 mg daily, but then given IVF when hypotensive overnight PLAN -continue INSPECTOR FABRIC ASA & lasix - Additional IV lasix 40mg once 06/06 Septic Shock(resolved) - arrived to on pressor, but essentially stopped immediately -central venous O2 sat 84% - hypotensive overnight and briefly on dopamine (d/t bradycardia) -- off since ~ 0200 - SBP 100-140s Bradycardia; ChronicAfib/Flutter s/p Atrial Appendage Ligation - no INSPECTOR FABRIC ACd/trecurrent GIBs - received amiodarone load at OSH & continued on a drip --> dc'd 06/02 - EKG 06/03 AM: aflutter, rate 79, QTc 445 - EKG 06/04 PM: aflutter, rate 81, QTc 421 - HR as low as 40s overnight --> given atropine x 2, IVF, and started on dopamine drip --> able to wean off dopamine ~ 0200 PLAN -continuePTAmetoprololat reduced dose of 50 mg BID(INSPECTOR FABRIC dose is 100 mg BID) -hold INSPECTOR FABRIC diltiazem for bradycardia on 06/05 GI GAVE Transfusion-DependentAnemia - follows withKUGI - EGD1: 3 columns of smallEV,portal HTN gastropathy &mild GAVE - hgb 8.5 on 06/04 --> stable ~7.4 - plt 107 PLAN -continuePTA PPI Liver Disease -c/bportalHTN, congestive colopathy, EV,GAVE&ascites - limited prior w/u; was to see hepatology in clinic in June - US 02/2018: diffuse hepatic steatosis - EGD as above - MELD-Na 10 Dysphagia - Moderate oropharyngeal dysphagia per COMMERCIAL INSURANCE UNDERWRITER - Corpak be removed and she be allowed to eat; pt aware of risk of aspiration - COMMERCIAL INSURANCE UNDERWRITER recs 06/05: Continue regular solids, thin liquids RENAL DELROY on CKD (resolved) - baseline Cr 1.3 - Cr 2.4 on arrival at OSH --> 1.3 this AM 06/06 - Will avoid nephrotoxins, renally dose meds, strict I/Os ENDO DM2 -INSPECTOR FABRIC regimen:NPH 14 units Q AM, novolog 4 units TID - BS 110-160s last 24 hrs PLAN - continue 14U NPH daily + low dose correction factor Hypothyroidism -TSH1.99 (06/01) PLAN -continuePTAsynthroid 175mcg daily ID Septic Shock HCAP UTI - WBC3.9;afebrile - hxresistant e.coli UTI - per OSH micro tech, no blood cxs were drawn - urine cx (OSH): + e.coli (resitant to cefazolin, ampicillin, levaquin, augmentin,cipro; sensitive to merrem, ceftriaxone & bactrim) - BAL 05/31(OSH): usual upper respiratory rob, tess species -CT chest (OSH): dense L base consolidation - blood cx06/01: NGTD - sputum cx 06/01: GS w/o organisms; cx NGTD - UA06/01: 1+ leuks, + nitrites, 20-50 WBC, few bacteria - urine cx06/02: < 100,000 tess albicans - strep pneumo and legionella urine Ags negative - procalcitonin0.22 (06/01) - no suitable pocket of ascites (on bedside US) for a paracentesis PLAN - continue ceftriaxone and doxycycline x 7 days (through 06/06, stop date ordered) FEN - Regular solids, thin liquids, swallow precautions - tube feedings: dc'd - IVF: none - review electrolytes and replace as needed PPX: Lines: DC CVC on 06/[address] PIV Drains/Tubes: None, corpack dc'd 06/05 Indwelling Urinary Catheter: No DVT: SCDs; Heparin GI: Protonix PT/OT: Yes Insulin: Yes Code Status: Full Code Disposition/Family: Continue admission to [facility] with tentative DC tomorrow . Paged PT to work with patient today in preparation for discharge. Anne-Marie Garza MD PGY 3 [facility] Internal Medicine Pager Patient seen and discussed with Dr. Tom Subjective Deborah Fields is a 62 y.o. female. Patient seen at bedside. C/O tongue swelling and pain today with sensation of oral thrush. She also notes vaginal itching and is concerned for vaginal yeast infection. Denies abdominal pain, N/V , SOA. Has not been out of bed yet today. Feels that her BUE edema has improved. Notes some irritation of the central venous catheter. Medications Scheduled Meds: aspirin chewable tablet 81 mg 81 mg Oral QDAY cefTRIAXone (ROCEPHIN) IVP 1 g 1 g Intravenous Q24H* doxycycline (VIBRAMYCIN) tablet 100 mg 100 mg Oral BID fluconazole (DIFLUCAN) tablet 200 mg 200 mg Oral QDAY folic acid (FOLVITE) tablet 1 mg 1 mg Oral QDAY furosemide (LASIX) injection 40 mg 40 mg Intravenous ONCE furosemide (LASIX) tablet 40 mg 40 mg Oral QDAY heparin (porcine) PF syringe 5,000 Units 5,000 Units Subcutaneous Q8H insulin aspart U-100 (NOVOLOG FLEXPEN) injection PEN 0-7 Units 0-7 Units Subcutaneous ACHS insulin NPH (HUMULIN N KwikPen) injection PEN 14 Units 14 Units Subcutaneous QDAY(07) levothyroxine (SYNTHROID) tablet 175 mcg 175 mcg Oral QDAY(07) magnesium oxide (MAG-OX) tablet 400 mg 400 mg Oral BID metoprolol tartrate (LOPRESSOR) tablet 50 mg 50 mg Oral BID pantoprazole DR (PROTONIX) tablet 40 mg 40 mg Oral BID(11-21) potassium chloride SR (K-DUR) tablet 20 mEq 20 mEq Oral QDAY(12) tiZANidine (ZANAFLEX) tablet 4 mg 4 mg Oral QHS vitamins, multiple tablet 1 tablet 1 tablet Oral QDAY Continuous Infusions: PRN and Respiratory Meds:traMADol Q6H PRN Review of Systems: Review of Systems A comprehensive 10 point review of systems was reviewed and was negative except for the following (in bold): Pertinent negatives are listed in non-bolded text Constitional: Fever, chills, unintentional weight change, night sweats Neuro: Headache, visual disturbance, weakness CV: Chest pain/pressure, lightheadedness, edema PULM: Shortness of breath, cough, hemoptysis GI: Nausea, vomiting, abdominal pain, constipation, diarrhea : Dysuria, polyuria Skin: Right CVC irritation Objective: Vital Signs: Last Filed Vital Signs: 24 Hour Range BP: 121/53 (06/06 1154) Temp: 36.5 C (97.7 F) (06/06 115) Pulse: 85 (06/06 1154) Respirations: 16 PER MINUTE (06/06 115) SpO2: 97 % (06/06 1154) O2 Delivery: Nasal Cannula (06/06 1154) BP: (105-143)/(48-59) Temp: [36.4 C (97.6 F)-36.9 C (98.4 F)] Pulse: [66-102] Respirations: [16 PER MINUTE-22 PER MINUTE] SpO2: [97 %-99 %] O2 Delivery: Nasal Cannula Intensity Pain Scale (Self Report): Asleep (06/06/18 0435) Vitals: 06/04/18 0400 06/05/18 0600 06/06/18 0500 Weight: 127.2 kg (280 lb 6.8 oz) 132 kg (291 lb 0.1 oz) (!) 137.8 kg (303 lb 14.4 oz) Intake/Output Summary: (Last 24 hours) Intake/Output Summary (Last 24 hours) at 06/06/2018 1234 Last data filed at 06/06/2018 0640 Gross per 24 hour Intake 1200 ml Output 375 ml Net 825 ml Stool Occurrence: 0 Physical Exam General Appearance: Appears overweight well nourished, stated age and in no distress PSYCH: Normal behavior, goal directed thinking, normal speech (rate and volume) HEENT: Normocephalic and atraumatic, mucous membranes moist. Tongue erythematous and swollen, no thrush visible. Sclera anicteric bilaterally. CV: S1 S2 RRR. No murmurs, rubs, clicks, gallops or S4. Distal extremities warm without cyanosis or clubbing. Radial pulses 2+ bilaterally and symmetric. No parasternal heaves. PULM: Fine crackles to BL bases, no wheezes, rhonchi, increased effort of breathing or diminished lung sounds. Speaks in complete sentences. ABD: Soft, obese, NTTP EXT: 2+ pitting edema to BLE and 1+ to BUE (L>R). No obvious deformity to BLE. SKIN: Warm and dry to touch. Pallor noted. NEURO: Tone grossly normal, cranial nerves 2-12 grossly intact, tracks to voice. Alert and interactive. Lab Review 24-hour labs: Results for orders placed or performed during the hospital encounter of (from the past 24 hour(s)) POC GLUCOSE Collection Time: 06/05/18 1:13 PM Result Value Ref Range Glucose, POC 112 (H) 70 - 100 MG/DL POC GLUCOSE Collection Time: 06/05/18 6:31 PM Result Value Ref Range Glucose, POC 113 (H) 70 - 100 MG/DL POC GLUCOSE Collection Time: 06/05/18 9:13 PM Result Value Ref Range Glucose, POC 138 (H) 70 - 100 MG/DL POC GLUCOSE Collection Time: 06/06/18 3:15 AM Result Value Ref Range Glucose, POC 189 (H) 70 - 100 MG/DL PROTIME INR (PT) Collection Time: 06/06/18 6:20 AM Result Value Ref Range INR 1.2 0.8 - 1.2 PHOSPHORUS Collection Time: 06/06/18 6:20 AM Result Value Ref Range Phosphorus 2.5 2.0 - 4.5 MG/DL MAGNESIUM Collection Time: 06/06/18 6:20 AM Result Value Ref Range Magnesium 1.8 1.6 - 2.6 mg/dL COMPREHENSIVE METABOLIC PANEL Collection Time: 06/06/18 6:20 AM Result Value Ref Range Sodium 137 137 - 147 MMOL/L Potassium 3.8 3.5 - 5.1 MMOL/L Chloride 101 98 - 110 MMOL/L Glucose 148 (H) 70 - 100 MG/DL Blood Urea Nitrogen 33 (H) 7 - 25 MG/DL Creatinine 1.30 (H) 0.4 - 1.00 MG/DL Calcium 8.7 8.5 - 10.6 MG/DL Total Protein 5.6 (L) 6.0 - 8.0 G/DL Total Bilirubin 0.6 0.3 - 1.2 MG/DL Albumin 2.6 (L) 3.5 - 5.0 G/DL Alk Phosphatase 40 25 - 110 U/L AST (SGOT) 13 7 - 40 U/L CO2 34 (H) 21 - 30 MMOL/L ALT (SGPT) 6 (L) 7 - 56 U/L Anion Gap 2 (L) 3 - 12 eGFR Non 42 (L) >60 mL/min eGFR 51 (L) >60 mL/min CBC AND DIFF Collection Time: 06/06/18 6:20 AM Result Value Ref Range White Blood Cells 3.8 (L) 4.5 - 11.0 K/UL RBC 2.35 (L) 4.0 - 5.0 M/UL Hemoglobin 7.4 (L) 12.0 - 15.0 GM/DL Hematocrit 22.7 (L) 36 - 45 % MCV 96.7 80 - 100 FL MCH 31.5 26 - 34 PG MCHC 32.5 32.0 - 36.0 G/DL RDW 17.0 (H) 11 - 15 % Platelet Count 112 (L) 150 - 400 K/UL MPV 8.3 7 - 11 FL Neutrophils 60 41 - 77 % Lymphocytes 22 (L) 24 - 44 % Monocytes 10 4 - 12 % Eosinophils 7 (H) 0 - 5 % Basophils 1 0 - 2 % Absolute Neutrophil Count 2.30 1.8 - 7.0 K/UL Absolute Lymph Count 0.80 (L) 1.0 - 4.8 K/UL Absolute Monocyte Count 0.40 0 - 0.80 K/UL Absolute Eosinophil Count 0.20 0 - 0.45 K/UL Absolute Basophil Count 0.00 0 - 0.20 K/UL POC GLUCOSE Collection Time: 06/06/18 7:44 AM Result Value Ref Range Glucose, POC 147 (H) 70 - 100 MG/DL Point of Care Testing (Last 24 hours) Glucose: (!) 148 (06/06/18 0620) POC Glucose (Download): (!) 147 (06/06/18 8462) Radiology and other Diagnostics Review: Pertinent radiology reviewed. Anne-Marie Garza MD Pager [phone] ER MAKER Associated attestation - Negro Tom MD - 06/06/2018 8:09 PM MARKER MAKER I personally performed the dempsey portions of the E/M visit, discussed case with Med II team and Dr Garza and concur with her documentation of history, physical exam, assessment, and treatment plan unless otherwise outlined with my notations. Negro Tom MD Department of Internal Medicine, Hospitalist [phone] * Preethi Radford RN - 06/05/2018 8:09 PM MARKER MAKER Heart Failure Nursing Progress Note Admission Date: 06/01/2018 LOS: 4 days Admission Weight: 132 kg (291 lb 0.1 oz) Most recent weights (inpatient): Vitals: 06/03/18 0200 06/04/18 0400 06/05/18 0600 Weight: 124.8 kg (275 lb 2.2 oz) 127.2 kg (280 lb 6.8 oz) 132 kg (291 lb 0.1 oz ) Weight change from previous day: +4.8kg Fluid restriction ordered: None Intake/Output Summary: (Last 24 hours) Intake/Output Summary (Last 24 hours) at 06/05/20182008 Last data filed at 06/05/2018 1300 Gross per 24 hour Intake 986 ml Output 375 ml Net 611 ml Is patient incontinent No, however pt did miss bedpan for one urine occurrence and brief scale was not used Anticipated discharge date: Plan ongoing Discharge goals: Return to baseline level of function Daily Assessment of Patient Stated Goals: Short Term Goal Identified by patient (Short Term=during hospitalization): none identified ER MAKER * Preethi Radford RN - 06/05/2018 8:05 PM MARKER MAKER Shift: Day Mentation: A&Ox4 Cardiac: Atrial flutter on tele, VSS Respiratory: 2L, SOA on exertion GI/: Voids per bedpan, last BM 06/04 Nutrition: Cardiac/ADA diet w/ pt to choose soft foods due to not having dentures with her (per COMMERCIAL INSURANCE UNDERWRITER recommendation today) Activity: x2 assist, bedrest. Attempted to sit at EOB, pt unable to sit up. Q2 turns. Pain: Generalized discomfort d/t edema improving with lasix, no c/o pain Family: at bedside ER MAKER * Georgia Mason - 06/05/2018 1:27 PM MARKER MAKER SPEECH-LANGUAGE PATHOLOGY DAILY TREATMENT NOTE Patient seen 1x this date. Documentation reflects all daily treatment sessions. SUMMARY OF THERAPY SESSION: Significant improvement in oropharyngeal swallow today. Vocal quality judged to be WFL and back to pt's baseline. No s/s of aspiration with thin liquids ( single or consecutive drinks) or with various solids. Primary team initiated PO diet this morning, which pt has reportedly been tolerating. Observed pt swallow pills whole with thin without difficulty. Pt conversational and does not exhibit confusion at bedside. Please see below for details/recommendations. RECOMMENDATIONS Regular Solids, thin liquids -Choose soft foods off of regular menu until pt obtains her dentures -Small bites/sips, must be fully upright Medications as tolerated Ongoing speech therapy to ensure toleration Goal : Pt will participate in ongoing dysphagia assesment and treatment given mild-mod cues. Met Comment: Pt's swallow assessed with thin liquids (single and consecutive drinks ) across several trials without s/s of aspiration. Oral and pharyngeal phases of swallow judged to be WNL with liquids and with pureed solids. Pt exhibits prolonged mastication with mech soft solids d/t limited dentition and because she does not have her dentures with her at the hospital. Discussed importance of choosing only soft foods off of regular menu for this reason. Pt verbalizes understanding and appears to have capacity to make decisions regarding appropriate solid choices. Discharge this goal as met New Goal: Pt will tolerate regular solids, thin liquids with <5% s/s of aspiration and without negative pulmonary status changes. PLAN / RECOMMENDATIONS: Continue treatment 2-3x/week Therapist: Skye Chris/HERNAN-COMMERCIAL INSURANCE UNDERWRITER (Pager [phone]; Voalte: [phone]) Date: 06/05/2018 ER MAKER * Preethi Radford, RN - 06/05/2018 11:25 AM MARKER MAKER Patient arrived to room [facility] via bed accompanied by transport. Patient transferred to the bed with assistance. Bedside safety checks completed. Initial patient assessment completed, refer to flowsheet for details. Admission skin assessment completed by: Preethi Radford RN and Bia Carter RN Pressure Injury Present on Hospital Admission (within [...] Doc Flowsheet for additional wound details. INTERVENTIONS: Standard pressure injury prevention, q2 turns due to inability to ambulate at this time. ER MAKER * Fay Tong RN - 06/05/2018 10:17 AM MARKER MAKER Pt left unit with transport via bed to [facility] at 1017. Patient is stable. Patient' s chart, medications and belongings with patient. Updates called to THOMPSON Oro at this time. ER MAKER * Fay Tong RN - 06/05/2018 8:21 AM MARKER MAKER Report called to THOM[facility] Oro on [address] at this time. ER MAKER * Elizabeth Garsia RN - 06/05/2018 6:28 AM MARKER MAKER Heart Failure Nursing Progress Note Admission Date: 06/01/2018 LOS: 4 days Admission Weight: 132 kg (291 lb 0.1 oz) Most recent weights (inpatient): Vitals: 06/03/18 0200 06/04/18 0400 06/05/18 0600 Weight: 124.8 kg (275 lb 2.2 oz) 127.2 kg (280 lb 6.8 oz) 132 kg (291 lb 0.1 oz ) Weight change from previous day: +4.8 Fluid restriction ordered: None Intake/Output Summary: (Last 24 hours) Intake/Output Summary (Last 24 hours) at 06/05/2018 0629 Last data filed at 06/05/2018 0400 Gross per 24 hour Intake 618 ml Output 0 ml Net 618 ml Is patient incontinent: No Anticipated discharge date: TBD Discharge goals: Manage HF Daily Assessment of Patient Stated Goals: Short Term Goal Identified by patient (Short Term=during hospitalization): Decrease edema ER MAKER * Ursula Bowen APRN - 06/05/2018 6:08 AM MARKER MAKER Pulmonary / Critical Care Progress Note Deborah Fields Today's Date: 06/05/2018 Admission Date: 06/01/2018 LOS: 4 days Active Problems: Type 2 diabetes mellitus with circulatory disorder, without long-term 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 (HCC) PAF (paroxysmal atrial fibrillation) (HCC) Atrial fibrillation with rapid ventricular response (HCC) Chronic gastrointestinal bleeding HLD (hyperlipidemia) Essential hypertension Acute on chronic diastolic heart failure due to coronary artery disease (HCC) Sepsis (HCC) Morbid obesity (HCC) Acute hypoxemic respiratory failure (HCC) Brief Hospital Course: Deborah Fields is a 62 y/o female with PMH significant for CAD s/p CABG 02/2018, combined HF, afib s/p L atrial appendage ligation not on AC d/t recurrent GIBs c /b transfusion-dependent anemia, HTN, DM, CKD, hypothyroidism, morbid obesity & liver disease c/b portal HTN, congestive colopathy, EV, GAVE & ascites. She was transferred from [facility] on 06/01 after presenting there on 05/30 for syncope/fatigue. Admit c/b AMS/respiratory failure requiring intubation, afib w/ RVR & septic shock from HCAP + UTI. On arrival, NE was able to be stopped & she was extubated 06/02 AM. W/ hx of HF & no longer in shock have cautiously resumed diuresis. Afib has been rate controlled here, dc'd amiodarone & resumed metoprolol/cardizem at lower than INSPECTOR FABRIC doses. Overnight -06/05, pt became bradydardic and hypotensive -- given atropine x 2, IVF, and briefly on dopamine drip. Have dc'd cardizem from AUG. Antbx narrowed to ceftriaxone and doxycycline for PNA & UTI; will complete 06/06. Assessment/Plan: NEURO Acute Encephalopathy (resolved) - developed AMS the day of admit to OSH in the setting of septic shock - CT head (OSH): no acute process - ammonia level 95 (06/02) - on exam, pt is alert and oriented PLAN - continue INSPECTOR FABRIC tizanidine and tramadol PULM Acute Hypercarbic & Hypoxemic Respiratory Failure (improved) L Pleural Effusion - d/t HCAP - CT chest (OSH): circumferential L pleural effusion & densely consolidated L base w/ air bronchograms - extubated 06/02 - currently on 5 L/NC, O2 sat 98% PLAN - diuresis as below CV Chronic Combined HF CAD, HTN - s/p CABG x 4 02/2018 - echo 04/01: LVEF 55-60%, dilated RV with hypocontractility, severe RA enlargement, moderate TR, moderate LA enlargement, + intra-atrial PFO with bidirectional shunt, s/p left atrial appendage ligation - repeat echo 06/02/18: LVEF 50-55%, no regional wall motion abnormalities; RV mildly dilated but function probably normal; mild to moderate MR; mild to moderate TR; peak PAP 41 mmHg; no pericardial effusion - EKG: no ST changes - troponin negative x 2 - BNP 247 (prior ) - INSPECTOR FABRIC lasix 40 mg daily, but then given IVF when hypotensive overnight PLAN - continue INSPECTOR FABRIC ASA & lasix; give extra dose lasix 40 mg PO x 1 today Septic Shock (resolved) - arrived to [facility] on pressor, but essentially stopped immediately -central venous O2 sat 84% - hypotensive overnight and briefly on dopamine (d/t bradycardia) -- off since ~ 0200 - SBP 90s-110s Bradycardia; Chronic Afib/Flutter s/p Atrial Appendage Ligation - no INSPECTOR FABRIC AC d/t recurrent GIBs - received amiodarone load at OSH & continued on a drip --> dc'd 06/02 - EKG 06/03 AM: aflutter, rate 79, QTc 445 - EKG 06/04 PM: aflutter, rate 81, QTc 421 - HR as low as 40s overnight --> given atropine x 2, IVF, and started on dopamine drip --> able to wean off dopamine ~ 0200 - remains in aflutter, rate 60s-70s, this AM PLAN - continue INSPECTOR FABRIC metoprolol at reduced dose of 50 mg BID (INSPECTOR FABRIC dose is 100 mg BID) - hold INSPECTOR FABRIC diltiazem GI GAVE Transfusion-Dependent Anemia - follows with [facility] - EGD 03/29: 3 columns of small EV, portal HTN gastropathy & mild GAVE - hgb 8.5 on 06/04 --> 7.2 this AM - plt 107 PLAN - continue INSPECTOR FABRIC PPI Liver Disease - c/b portal HTN, congestive colopathy, EV, GAVE & ascites - limited prior w/u; was to see hepatology in clinic in June - 02/2018: diffuse hepatic steatosis - EGD as above - MELD-Na 10 Dysphagia - moderate oropharyngeal dysphagia per COMMERCIAL INSURANCE UNDERWRITER - corpak in place w/ TFs --> pt demanding corpak be removed and she be allowed to eat; pt aware of risk of aspiration - mechanical soft/nectar liquid diet ordered RENAL DELROY on CKD (improving) - baseline Cr 1.3 - Cr 2.4 on arrival at OSH --> 1.19 this AM - I/O: not accurate ENDO DM2 - INSPECTOR FABRIC regimen: NPH 14 units Q AM, novolog 4 units TID - BS 180s-190s last 24 hrs PLAN - continue NPH + low dose correction factor Hypothyroidism - TSH 1.99 (06/01) PLAN - continue INSPECTOR FABRIC synthroid ID Septic Shock HCAP UTI - WBC 3.9; afebrile - hx resistant e.coli UTI - per OSH micro tech, no blood cxs were drawn - urine cx (OSH): + e.coli (resitant to cefazolin, ampicillin, levaquin, augmentin, cipro; sensitive to merrem, ceftriaxone & bactrim) - BAL 05/31 (OSH): usual upper respiratory rob, tess species - CT chest (OSH): dense L base consolidation - blood cx 06/01: NGTD - sputum cx 06/01: GS w/o organisms; cx NGTD - UA 06/01: 1+ leuks, + nitrites, 20-50 WBC, few bacteria - urine cx 06/02: < 100,000 tess albicans - strep pneumo and legionella urine Ags negative - procalcitonin 0.22 (06/01) - no suitable pocket of ascites (on bedside US) for a paracentesis PLAN - continue ceftriaxone and doxycycline x 7 days (through 06/06) FEN - NPO --> cardiac/diabetic diet -- mechanical soft/nectar liquids - tube feedings: dc'd - IVF: none - review electrolytes and replace as needed PPX: Lines: R IJ TLC Drains/Tubes: Corpak --> dc'd per pt's wishes Indwelling Urinary Catheter: No DVT: SCDs; Heparin GI: Protonix PT/OT: Yes Insulin: Yes Reviewed Quality Checklist with RN: Yes Code Status: Full Code Disposition/Family: Remains stable for transfer to floor. Ursula Bowen APRN Pulm/Critical Care Pager [phone] (2nd call/night) Pager [phone] 06/05/2018 1124 __ Subjective: Deborah Fields is a 62 y.o. female who is awake and alert, resting in bed. States she did not sleep well last night. Demanding that corpak be removed, states "I'm the boss on this one. I want it out and I want to eat." Feels that her edema is improving, "I have wrinkles now." ROS: Denies ESTRELLA, chest pain/pressure, SOB, cough, abdominal pain, N/V, or rash. Objective: Medications: Scheduled Meds: aspirin chewable tablet 81 mg 81 mg Oral QDAY cefTRIAXone (ROCEPHIN) IVP 1 g 1 g Intravenous Q24H* doxycycline (VIBRAMYCIN) tablet 100 mg 100 mg Oral BID folic acid(#) (FOLVITE) solution 1 mg 1 mg Oral QDAY furosemide (LASIX) oral solution 40 mg 40 mg Oral QDAY heparin (porcine) PF syringe 5,000 Units 5,000 Units Subcutaneous Q8H insulin aspart U-100 (NOVOLOG FLEXPEN) injection PEN 0-7 Units 0-7 Units Subcutaneous ACHS insulin NPH (HUMULIN N KwikPen) injection PEN 14 Units 14 Units Subcutaneous QDAY(07) LACTATED RINGERS IV SOLP (Cabinet Override) NOW levothyroxine (SYNTHROID) tablet 175 mcg 175 mcg Oral QDAY(07) magnesium oxide (MAG-OX) tablet 400 mg 400 mg Oral BID metoprolol(#) (LOPRESSOR) solution 50 mg 50 mg Oral BID pantoprazole(#) (PROTONIX) suspension 40 mg 40 mg Oral BID(05-05) potassium chloride oral solution 20 mEq 20 mEq Oral QDAY tiZANidine (ZANAFLEX) tablet 4 mg 4 mg Oral QHS vitamins, multi w/iron (CERTAVITE) oral solution 15 mL 15 mL Per Corpak Tube QDAY Continuous Infusions: PRN and Respiratory Meds:pancrelipase 20,000 Units/ sodium bicarbonate 650 mg(# ) PRN ([employer] from Rx), traMADol Q6H PRN Vital Signs: Last Filed Vital Signs: 24 Hour Range BP: 116/79 (06/05 400) Temp: 36.6 C (97.8 F) (06/05 400) Pulse: 73 (06/05 450) Respirations: 15 PER MINUTE (06/05 450) SpO2: 100 % (06/05 450) SpO2 Pulse: 67 (06/05 400) BP: (81-151)/(39-79) Temp: [36.4 C (97.5 F)-37.3 C (99.1 F)] Pulse: [51-96] Respirations: [15 PER MINUTE-22 PER MINUTE] SpO2: [89 %-100 %] Vitals: 06/02/18 0942 06/03/18 0200 06/04/18 0400 Weight: 131.3 kg (289 lb 7.4 oz) 124.8 kg (275 lb 2.2 oz) 127.2 kg (280 lb 6.8 oz) Intake/Output Summary: (Last 24 hours) Intake/Output Summary (Last 24 hours) at 06/05/2018 0608 Last data filed at 06/05/2018 0400 Gross per 24 hour Intake 618 ml Output 0 ml Net 618 ml Physical Exam: General: awake and alert, no distress, appears stated age Head: normocephalic, without obvious abnormality, atraumatic Eyes: conjunctivae/corneas clear Mouth/throat: moist mucous membranes; corpak in place Neck: supple, symmetrical, trachea midline Lungs: clear to auscultation bilaterally, diminished in bases; no wheeze Heart: regular rate and rhythm, no murmur appreciated Abdomen: obese, soft, non-tender; bowel sounds active Extremities: normal, atraumatic, no cyanosis, 1+ BUE & 2-3+ BLE edema Pulses: 2+ and symmetric, all extremities Skin: no rashes or lesions noted Neurologic: grossly normal Artificial airway: None Ventilator/ Respiratory Therapy: No Vent weaning trial: Not applicable Laboratory: LABS: Recent Labs 06/03/18 0348 06/04/18 0341 06/05/18 0343 NA 143 144 141 K 3.2* 3.2* 3.6 CL 105 106 105 CO2 30 34* 32* GAP 8 4 4 BUN 39* 33* 34* CR 1.72* 1.54* 1.19* GLU 183* 194* 194* CA 9.1 8.9 8.7 ALBUMIN 2.9* 2.6* 2.3* MG 2.0 1.9 1.9 PO4 3.2 3.3 2.5 Recent Labs 06/03/18 0348 06/04/18 0341 06/05/18 0343 WBC 9.6 6.0 3.9* HGB 9.0* 8.5* 7.2* HCT 26.7* 25.9* 21.9* PLTCT 184 138* 107* INR 1.2 1.2 -- AST 15 13 10 ALT 6* 7 6* ALKPHOS 42 39 35 Estimated Creatinine Clearance: 66.4 mL/min (A) (based on SCr of 1.19 mg/dL (H)) . Vitals: 06/02/18 0942 06/03/18 0200 06/04/18 0400 Weight: 131.3 kg (289 lb 7.4 oz) 124.8 kg (275 lb 2.2 oz) 127.2 kg (280 lb 6.8 oz) Recent Labs 06/02/18 1457 PHART 7.37 PO2ART 83 Radiology and Other Diagnostic Procedures Review: Reviewed pertinent studies. ER MAKER Associated attestation - Danilo Osborn MD - 06/05/2018 8:43 PM MARKER MAKER ATTESTATION I personally interviewed and examined the patient. I have reviewed the history , physical, impression and plan outlined by the Nurse Practitioner. HPI: Ms. Fields had some hypotension/bradycardia in the setting of receiving diltiazem. She received atropine and dopamine briefly. Otherwise, she is insisting that her corpak be removed and that she wants to eat. She states she has been eating for a long time. She feels her edema is improving. ROS: A full 14 point review of systems was performed and is as above or is unremarkable. Exam: General: Awake, alert, no distress HEENT: EOMI, PERRL, OP Clear, MMM Neck: Supple Lungs: CTAB, no wheezing Abd: Soft, NT, ND Ext: Some upper and lower extremity edema, no clubbing or cyanosis Pulses: 2+ all extremities Skin: No rashes Neuro: Grossly normal Impression: 1. Acute hypercarbic and hypoxemic respiratory failureimproved 2. Acute encephalopathyresolved 3. Chronic combined heart failure 4. Septic shockresolved 5. Chronic atrial fibrillation 6. Gave 7. Diffuse hepatic steatosis 8. Dysphasia 9. Acute on chronic kidney disease 10. HCAP 11. UTI Plan: 1. Continue ceftriaxone and doxycycline through 06/06 2. Discontinue diltiazem and continue on metoprolol alone 3. Educate patient on risk of aspiration if she chooses to eat 4. Monitor hemoglobin and transfuse as needed 5. Diuresis with goal net negative Staff name: Danilo Osborn MD Date: 06/05/2018 * Elizabeth Garsia RN - 06/05/2018 12:07 AM MARKER MAKER 2300: Pt became bradycardic (40-55s), lethargic,hypotensive and in a-flutter. Dr. Wakefield at bedside. EKG obtained, Atropine x2 given, LR bolus, and Dopamine gtt started. See doc flow and MAR for details. Report received from THOMPSON Dubon. Bedside safety check complete. Family at bedside. 0200: Dopamine gtt stopped. ER MAKER * Leida Cline, - 06/04/2018 4:53 PM MARKER MAKER RT Adult Assessment Note NAME:Deborah Fields :1955 AGE: 62 y.o. ADMISSION DATE: 06/01/2018 DAYS ADMITTED: LOS: 3 days RT Treatment Plan: Protocol Plan: Procedures Vibrating PEP Therapy: Discontinued IPPB: Place a nursing order for "IS Q1h While Awake" for any of Lung Expansion indicators Oxygen/Humidity: O2 to keep SpO2 > 92% Monitoring: Pulse oximetry BID & PRN Additional Comments: Impressions of the patient: stable Vital Signs: Pulse: Pulse: 84 RR: Respirations: 20 PER MINUTE SpO2: SpO2: 96 % O2 Device: standby Liter Flow: O2%: 21 Breath Sounds: Respiratory Effort: ER MAKER * Phillip Sanchez, PT - 06/04/2018 3:05 PM MARKER MAKER PHYSICAL THERAPY PROGRESS NOTE MOBILITY: Mobility Progressive Mobility Level: Stand Level of Assistance: Assist X2 Assistive Device: Walker Time Tolerated: 0-10 minutes Activity Limited By: Fatigue;Weakness SUBJECTIVE: Subjective Significant hospital events: PMH significant for CAD s/p CABG 02/2018, combined HF, afib s/p L atrial appendage ligation not on AC d/t recurrent GIBs c/b transfusion-dependent anemia, HTN, DM, CKD, hypothyroidism, morbid obesity & liver disease c/b portal HTN, congestive colopathy, EV, GAVE & ascites. She was transferred from [facility] on 06/01 after presenting there on 05/30 for syncope/fatigue. Admit c/b AMS/respiratory failure requiring intubation, afib w/ RVR & septic shock from HCAP + UTI. On arrival, NE was able to be stopped & she was extubated 06/02 AM. Mental / Cognitive Status: Alert;Oriented;Cooperative;Follows Commands Persons Present: RehabTechnician;Spouse Pain: Patient has no complaint of pain Comments: 3L 02 NC Ambulation Assist: Independent Mobility at Household Level with Device Patient Owned Equipment: Roller Walker Home Situation: Lives with Family Type of Home: House Entry Stairs: Ramp In-Home Stairs: No Stairs BED MOBILITY/TRANSFERS: Bed Mobility/Transfers Bed Mobility: Supine to Sit: Moderate Assist;x2 People;Head of Bed Elevated; Assist with Trunk Bed Mobility: Sit to Supine: Maximum Assist;x2 People;Assist with Trunk;Assist with B LE Transfer Type: Sit to Stand(Two standing trials) Transfer: Assistance Level: From;Bed;Minimal Assist Transfer: Assistive Device: Roller Walker Transfers: Type Of Assistance: Verbal Cues;For Strength Deficit;For Safety Considerations End Of Activity Status: In Bed;Nursing Notified;Instructed Patient to Request Assist with Mobility;Instructed Patient to Use Call Light Comments: Increased 02 from 3 to 6L 02 NC with activity GAIT: Gait Gait Distance: (sidestepped length of bed with one seated rest break) Activity Limited By: Complaint of Fatigue;Weakness ACTIVITY/EXERCISE: Activity / Exercise Sit Edge Of Bed: 20 minutes Sit Edge Of Bed Assist: Stand By Assist Stand At Bedside : (Two stands for ~30 seconds each) Comments: Performed brushing teeth side of bed stand by assist ASSESSMENT/PROGRESS: Assessment/Progress Impaired Mobility Due To: Decreased Strength;Decreased Activity Tolerance; Deconditioning;Medical Status Limitation Assessment/Progress: Should Improve w/ Continued PT AM-PAC 6 Clicks Basic Mobility Inpatient Turning from your back to your side while in a flat bed without using bed rails : A lot Moving from lying on your back to sitting on the side of a flatbed without using bedrails : A Lot Moving to and from a bed to a chair (including a wheelchair): A Lot Standing up from a chair using your arms (e.g. wheelchair, or bedside chair): A Little To walk in hospital room: A Lot Climbing 3-5 steps with a railing: Total Raw Score: 12 Standardized (T-scale) Score: 32.23 Basic Mobility CMS 0-100%: 61.94 CMS G Code Modifier for Basic Mobility: CL GOALS: Goals Goal Formulation: With Patient Time For Goal Achievement: 5 days Pt Will Go Supine To/From Sit: w/ Minimal Assist Pt Will Transfer Bed/Chair: w/ Stand By Assist Pt Will Transfer Sit to Stand: w/ Stand By Assist Pt Will Ambulate: 1-10 Feet, w/ Walker, w/ Minimal Assist PLAN: Plan Treatment Interventions: Mobility Training;Strengthening Plan Frequency: 5 Days per Week PT Plan for Next Visit: Up to chair; transfers; progress to ambulation RECOMMENDATIONS: PT Discharge Recommendations PT Discharge Recommendations: Inpatient Setting Therapist: Phillip Sanchez PT Date: 06/04/2018 ER MAKER * Stacie Moreno RN - 06/04/2018 12:09 PM MARKER MAKER Asked to provide peripheral IV access so that her central line can be removed. Left arm is extremely edematous and not assessed. Right forearm assessed, large amount of fluid noted in the forearm, no veins accessible to stick, SUKHDEV has a vein that is non compressible. I have removed the alternate site PIV that was placed in her right chest wall. Recommend leaving the right internal jugular CVC triple lumen indwelling. Discussed with Ursula SINGH. ER MAKER * Bia Aparicio - 06/04/2018 10:20 AM MARKER MAKER OCCUPATIONAL THERAPY NO TREATMENT NOTE On OT approach, pt agreeable to working with therapy, but requested to get on the bedpan. Pt rolled side <> side with maximal assist to get on the bedpan. Left pt with call light in reach and alerted RN. Occupational therapy will continue to follow and provide intervention as indicated. Therapist: Bia Aparicio OTR/L [id number] Date: 06/04/2018 ER MAKER * Renata Magaña - 06/04/2018 10:11 AM MARKER MAKER SPEECH-LANGUAGE PATHOLOGY DAILY TREATMENT NOTE Patient seen 1x this date. Documentation reflects all daily treatment sessions. SUMMARY OF THERAPY SESSION: Dysphagia treatment completed this date. Moderate- severe oropharyngeal dysphagia present at this time. Consistent s/sx of aspiration/penetration noted with thins, nectars, and puree solids not resolved with compensatory strategies. Pt did not pass 3oz water protocol to rule out presence of silent aspiration. Pt adamant about pursuing PO intake of liquids despite education of risks of aspiration. Sources of dysphagia include debility due to medical course and decreased airway protection at level of vocal cords due to intubation. Please see further details below. RECOMMENDATIONS: Remain NPO at this time. Continue Corpak for nutrition/medication/hydration. Initiate ice chip protocol (7-10 per hour). Guidelines provided to RN. Frequent oral care to minimize risk for aspiration of bacteria in secretions. Ongoing dysphagia assessment and treatment. Pt discussed with family and primary team. Goal : Pt will participate in ongoing dysphagia assesment and treatment given mild-mod cues. Met Comment: Pt seated upright in bed. Ice chip x3, thin x12 (x3 tsp, x5 straw drinks, x3 straw drinks, x1 3oz water protocol), puree x5. Pt demonstrated functional withdrawal of bolus from cup, spoon, and straw. Timely bolus manipulation and a/p transfer. Variable swallow initiation from timely to moderately delayed; reduced hyolaryngeal excursion as perceived upon palpation. Cough x6, throat clear x3 with thins, nectars, and purees indicative of possible aspiration/penetration. Chin tuck, effortful swallow, small bites/sips , slow rate of intake all ineffective to eliminate s/sx. Continue to address this goal Goal : Pt will tolerate ice chip protocol with less than 5% s/s of aspiration and without negative pulmonary status changes. Met. Comment: No s/sx in 3/3 opportunities. See above. Continue to address this goal. PLAN / RECOMMENDATIONS: Continue treatment 3-5x/week Therapist: TYSHAWN Alvarado L/HENRAN-COMMERCIAL INSURANCE UNDERWRITER Voalte: [id number] Date: 06/04/2018 ER MAKER * Ursula Bowen APRN - 06/04/2018 6:10 AM MARKER MAKER Pulmonary / Critical Care Progress Note Deborah Fields Today's Date: 06/04/2018 Admission Date: 06/01/2018 LOS: 3 days Active Problems: Type 2 diabetes mellitus with circulatory disorder, without long-term 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 (HCC) PAF (paroxysmal atrial fibrillation) (HCC) Atrial fibrillation with rapid ventricular response (HCC) Chronic gastrointestinal bleeding HLD (hyperlipidemia) Essential hypertension Acute on chronic diastolic heart failure due to coronary artery disease (HCC) Sepsis (HCC) Morbid obesity (HCC) Acute hypoxemic respiratory failure (HCC) Brief Hospital Course: Deborah Fields is a 62 y/o female with PMH significant for CAD s/p CABG 02/2018, combined HF, afib s/p L atrial appendage ligation not on AC d/t recurrent GIBs c /b transfusion-dependent anemia, HTN, DM, CKD, hypothyroidism, morbid obesity & liver disease c/b portal HTN, congestive colopathy, EV, GAVE & ascites. She was transferred from [facility] on 06/01 after presenting there on 05/30 for syncope/fatigue. Admit c/b AMS/respiratory failure requiring intubation, afib w/ RVR & septic shock from HCAP + UTI. On arrival, NE was able to be stopped & she was extubated 06/02 AM. W/ hx of HF & no longer in shock have cautiously resumed diuresis. Afib has been rate controlled here, dc'd amiodarone & resumed metoprolol/cardizem at lower than INSPECTOR FABRIC doses. Antbx narrowed to ceftriaxone and doxycycline for PNA & UTI. Assessment/Plan: NEURO Acute Encephalopathy (resolved) - developed AMS the day of admit to OSH in the setting of septic shock - CT head (OSH): no acute process - ammonia level 95 (06/02) - on exam, pt is alert and oriented PLAN - resume INSPECTOR FABRIC tizanidine and tramadol - dc lactulose PULM Acute Hypercarbic & Hypoxemic Respiratory Failure (improved) L Pleural Effusion - d/t HCAP - CT chest (OSH): circumferential L pleural effusion & densely consolidated L base w/ air bronchograms - extubated 06/02 - currently on 5 L/NC, O2 sat 98% PLAN - diuresis as below CV Chronic Combined HF CAD, HTN - s/p CABG x 4 02/2018 - echo 04/01: LVEF 55-60%, dilated RV with hypocontractility, severe RA enlargement, moderate TR, moderate LA enlargement, + intra-atrial PFO with bidirectional shunt, s/p left atrial appendage ligation - repeat echo 06/02/18: LVEF 50-55%, no regional wall motion abnormalities; RV mildly dilated but function probably normal; mild to moderate MR; mild to moderate TR; peak PAP 41 mmHg; no pericardial effusion - EKG: no ST changes - troponin negative x 2 - BNP 247 (prior 1,178) - grossly overloaded on exam & w/ pleural effusion - lasix 40 mg IV x 1 on 06/02 --> net - 1 L - INSPECTOR FABRIC lasix 40 mg daily on 06/03 --> net - 1.3 L PLAN - continue INSPECTOR FABRIC ASA & lasix Septic Shock (resolved) - arrived to on pressor, but essentially stopped immediately -central venous O2 sat 84% - SBP 100s-130s Chronic Afib w/ RVR s/p Atrial Appendage Ligation; AFlutter - no INSPECTOR FABRIC AC d/t recurrent GIBs - received amiodarone load at OSH & continued on a drip - HR 90s; nurses state flipping back and forth between aflutter and SR - EKG 06/03 AM: aflutter, rate 79, QTc 445 - EKG 06/04 PM: aflutter, rate 81, QTc 421 PLAN - dc'd amiodarone 06/02 - resumed INSPECTOR FABRIC metoprolol at 50 mg BID (INSPECTOR FABRIC dose is 100 mg BID) - resumed INSPECTOR FABRIC diltiazem at 30 mg Q 6 hrs (INSPECTOR FABRIC dose is CD 180 mg daily) GI GAVE Transfusion-Dependent Anemia - follows with [facility] - EGD 03/29: 3 columns of small EV, portal HTN gastropathy & mild GAVE - hgb 8.5 (at baseline) - plt 138 PLAN - continue INSPECTOR FABRIC PPI Liver Disease - c/b portal HTN, congestive colopathy, EV, GAVE & ascites - limited prior w/u; was to see hepatology in clinic in June - 02/2018: diffuse hepatic steatosis - EGD as above - MELD-Na 12 Dysphagia - moderate oropharyngeal dysphagia per COMMERCIAL INSURANCE UNDERWRITER - corpak in place w/ TFs - ice chip protocol; Dr. Verde agreeable to pt having sips Sprite Zero - nursing personnel found potato chips/soda in pt's bed on 06/03 -- pt admitted to eating chips RENAL DELROY on CKD (improving) - baseline Cr 1.3 - Cr 2.4 on arrival at OSH --> 1.54 this AM - I/O: net - 1.3 L last 24 hrs w/ 2 L UOP (net - 2.5 L for hospitalization) ENDO DM2 - INSPECTOR FABRIC regimen: NPH 14 units Q AM, novolog 4 units TID - BS 150s-180s last 24 hrs PLAN - continue NPH + low dose correction factor Hypothyroidism - TSH 1.99 (06/01) PLAN - continue INSPECTOR FABRIC synthroid ID Septic Shock HCAP UTI - WBC 6.0; afebrile - hx resistant e.coli UTI - per OSH micro tech, no blood cxs were drawn - urine cx (OSH): + e.coli (resitant to cefazolin, ampicillin, levaquin, augmentin, cipro; sensitive to merrem, ceftriaxone & bactrim) - BAL 05/31 (OSH): usual upper respiratory rob, tess species - CT chest (OSH): dense L base consolidation - blood cx 06/01: NGTD - sputum cx 06/01: GS w/o organisms; cx NGTD - UA 06/01: 1+ leuks, + nitrites, 20-50 WBC, few bacteria - urine cx 06/02: < 100,000 tess albicans - strep pneumo and legionella urine Ags negative - procalcitonin 0.22 (06/01) - no suitable pocket of ascites (on bedside US) for a paracentesis PLAN - continue ceftriaxone and doxycycline x 7 days FEN - NPO - tube feedings: Isosource 1.5 at 35 mL/hr w/ 3 ProSource protein packs/day - IVF: none - review electrolytes and replace as needed PPX: Lines: PIV, R IJ TLC --> will dc Drains/Tubes: Corpak Indwelling Urinary Catheter: No DVT: SCDs; Heparin GI: Protonix PT/OT: Yes Insulin: Yes Reviewed Quality Checklist with RN: Yes Code Status: Full Code Disposition/Family: Remains stable for transfer to floor. Ursula Bowen APRN Pulm/Critical Care Pager [phone] M2 (2nd call/night) Pager [phone] 06/04/2018 1534 __ Subjective: Deborah Fields is a 62 y.o. female who is awake and alert, resting in bed. States she did not sleep well last night; c/o back pain. Frequent BMs overnight and this AM. Would like something to drink. ROS: Denies ESTRELLA, chest pain/pressure, SOB, cough, abdominal pain, N/V, or rash. Objective: Medications: Scheduled Meds: aspirin chewable tablet 81 mg 81 mg Oral QDAY cefTRIAXone (ROCEPHIN) IVP 1 g 1 g Intravenous Q24H* diltiazem(#) (cardIZEM) solution 30 mg 30 mg Oral Q6H* doxycycline (VIBRAMYCIN) tablet 100 mg 100 mg Oral BID folic acid(#) (FOLVITE) solution 1 mg 1 mg Oral QDAY furosemide (LASIX) oral solution 40 mg 40 mg Oral QDAY heparin (porcine) PF syringe 5,000 Units 5,000 Units Subcutaneous Q8H insulin aspart U-100 (NOVOLOG FLEXPEN) injection PEN 0-7 Units 0-7 Units Subcutaneous ACHS insulin NPH (HUMULIN N KwikPen) injection PEN 14 Units 14 Units Subcutaneous QDAY() lactulose oral solution 20 g 30 mL Oral TID levothyroxine (SYNTHROID) tablet 175 mcg 175 mcg Oral QDAY() magnesium oxide (MAG-OX) tablet 400 mg 400 mg Oral BID magnesium sulfate 1 g/D5W 100 mL IVPB 1 g Intravenous ONCE metoprolol(#) (LOPRESSOR) solution 50 mg 50 mg Oral BID pantoprazole(#) (PROTONIX) suspension 40 mg 40 mg Oral BID(05-05) potassium chloride oral solution 20 mEq 20 mEq Oral QDAY potassium chloride oral solution 80 mEq 80 mEq Oral ONCE vitamins, multi w/iron (CERTAVITE) oral solution 15 mL 15 mL Per Corpak Tube QDAY Continuous Infusions: PRN and Respiratory Meds:pancrelipase 20,000 Units/ sodium bicarbonate 650 mg(# ) PRN ([employer] from Rx) Vital Signs: Last Filed Vital Signs: 24 Hour Range BP: 103/40 (06/04 400) Temp: 36.6 C (97.8 F) (06/04 400) Pulse: 88 (06/04 400) Respirations: 18 PER MINUTE (06/04 400) SpO2: 97 % (06/04 400) O2 Delivery: Nasal Cannula (06/04 400) SpO2 Pulse: 88 (06/04 400) BP: (103-148)/(40-72) Temp: [36.6 C (97.8 F)-37.6 C (99.7 F)] Pulse: [62-92] Respirations: [17 PER MINUTE-23 PER MINUTE] SpO2: [92 %-98 %] O2 Delivery: Nasal Cannula Intensity Pain Scale (Self Report): 6 (06/03/181999) Vitals: 06/02/18 0942 06/03/18 0200 06/04/18 0400 Weight: 131.3 kg (289 lb 7.4 oz) 124.8 kg (275 lb 2.2 oz) 127.2 kg (280 lb 6.8 oz) Intake/Output Summary: (Last 24 hours) Intake/Output Summary (Last 24 hours) at 06/04/2018 0610 Last data filed at 06/04/2018 0500 Gross per 24 hour Intake 1379 ml Output 2570 ml Net -1191 ml Physical Exam: General: awake and alert, no distress, appears stated age Head: normocephalic, without obvious abnormality, atraumatic Eyes: conjunctivae/corneas clear Mouth/throat: moist mucous membranes; corpak in place Neck: supple, symmetrical, trachea midline Lungs: clear to auscultation bilaterally, diminished in bases; no wheeze Heart: regular rate and rhythm, no murmur appreciated Abdomen: obese, soft, non-tender; bowel sounds active Extremities: normal, atraumatic, no cyanosis, 1+ BUE & 3+ BLE edema Pulses: 2+ and symmetric, all extremities Skin: no rashes or lesions noted Neurologic: grossly normal Artificial airway: None Ventilator/ Respiratory Therapy: No Vent weaning trial: Not applicable Laboratory: LABS: Recent Labs 06/01/18 1831 06/01/18 2200 06/02/1833906/03/1834706/04/18340 NA 140 -- 139 143 144 K 3.8 -- 3.5 3.2* 3.2* CL 103 -- 103 105 106 CO2 26 -- 27 30 34* GAP 11 -- 9 8 4 BUN 38* -- 39* 39* 33* CR 1.84* -- 1.79* 1.72* 1.54* GLU 303* -- 302* 183* 194* CA 9.0 -- 8.7 9.1 8.9 ALBUMIN 3.0* -- 2.6* 2.9* 2.6* MG 2.0 -- 2.0 2.0 1.9 PO4 3.6 -- 3.2 3.2 3.3 TSH 2.850 1.990 -- -- -- Recent Labs 06/01/18 18306/02/18 0340 06/03/1834706/04/18 034 WBC 5.8 4.0* 9.6 6.0 HGB 8.8* 8.1* 9.0* 8.5* HCT 26.0* 24.2* 26.7* 25.9* PLTCT 157 113* 184 138* INR -- 1.3* 1.2 -- AST 14 10 15 13 ALT 6* 5* 6* 7 ALKPHOS 51 41 42 39 TNI 0.02 0.01 -- -- Estimated Creatinine Clearance: 51.3 mL/min (A) (based on SCr of 1.54 mg/dL (H)) . Vitals: 06/02/18 0942 06/03/18 0200 06/04/18 0400 Weight: 131.3 kg (289 lb 7.4 oz) 124.8 kg (275 lb 2.2 oz) 127.2 kg (280 lb 6.8 oz) Recent Labs 06/02/18 0340 06/02/18 1457 PHART 7.43 7.37 PO2ART 101* 83 Radiology and Other Diagnostic Procedures Review: Reviewed pertinent studies. ER MAKER Associated attestation - Juan Jose Verde MD - 06/04/2018 4:29 PM MARKER MAKER ATTESTATION I personally interviewed and examined the patient. I have reviewed the history , physical, impression and plan outlined by the Nurse Practitioner. Only complaints today is desire to drink. Breathing comfortably on via NC at rest. No fever, chest pain, or n/v. On examination Gen: The pt. is well appearing in NAD. Alert and oriented x3. No increased work of breathing at rest Eyes: Sclera anicteric. EOM intact. HENT: OP clear w/o sores or lesions. No thrush. CV: RRR. No m/r/g. No JVD. 2+ bilat LE edema RESP: diminished bilat. No w/r. Normal chest excursion. ABD: obese. Soft. +BS MSK: no joint swelling, warmth, or erythema. Skin: No jaundice Neuro: CN-2-12 intact. Psych: mood and affect is appropriate My impression/plan: Mrs. Fields is a 62 y/o female with PMH of morbid obesity, CAD s/p CABG 2018, GAVE, transfusion dependence, Afib s/p AAP ligation, suspect chronic liver disease with hx of varices who was transferred from [facility] for acute respiratory failure, afib with RVR, and septic shock requiring mechanical ventillation and vasopressor. She was extubated on 06/02/18. Plan to continue lasix home dose 40mg daily Bron with BAL at outside hospital w/o significant rob. continue rocephin and doxycycline. Rocephin will cover e. Coli in urine as well. Now onset afib since CAGB. Decision made to not anticoagulate given transfusion dependence. Off amiodarone continue INSPECTOR FABRIC metoprolol and diltiazem. Unable to pass swallow evaluation today. Question if chronic aspiration played role in current pneumonia which we discussed today. Patient agreeable to let us continue to give nutrition via corpak, but is demanding to drink despite concern for aspiration. Ready to transfer to floor. Staff name: Juan Jose Verde MD Date: 06/04/2018 * Bia Aparicio - 06/03/2018 1:30 PM MARKER MAKER OCCUPATIONAL THERAPY ASSESSMENT NOTE Patient Name: Deborah Fields Room/Bed: FR6228/01 Admitting Diagnosis: Resp failure Mobility Progressive Mobility Level: Stand Level of Assistance: Assist X2 Assistive Device: Walker Time Tolerated: 0-10 minutes Activity Limited By: Weakness Subjective Pertinent Dx per Physician: H CAD s/p CABG 02/2018, HF, afib s/p L atrial appendage ligation not on AC d/t recurrent GIBs c/b transfusion-dependent anemia , liver disease c/b portal HTN, congestive colopathy, EV, GAVE & ascites. Admitted as transfer 06/01 after presenting there on 05/30 for syncope/fatigue. Admit c/b AMS/respiratory failure requiring intubation, afib w/ RVR & septic shock from HCAP + UTI. Extubated 06/02. Precautions: Falls;Vision/Cognitive Deficits;O2 Requirement(3lpm via nasal canula) Comments: 3L 02 NC Pain / Complaints: Patient has no c/o pain;Patient agrees to participate in therapy Objective Psychosocial Status: Willing and Cooperative to Participate Persons Present: Nursing Staff;Physical Therapist;Spouse Home Living Type of Home: House Home Layout: One Level;Ramped Entrance Home Equipment: Walker Prior Function Level Of [place]: Independent with ADLs and functional transfers Lives With: Spouse Receives Help From: None Needed Other Function Comments: Pt reports 2 recent falls in the bathroom, falling while trying to transfer off the toilet. ADL's Where Assessed: Edge of Bed Functional Transfer Assist: Moderate Assist(x2) Functional Transfer Deficits: Steadying;Verbal Cueing;Supervision/Safety; Increased Time to Complete Comment: Bed mobility supine <> EOB with maximal assist x2. Pt sat EOB with SBA for sitting balance. She stood to walker. Unable to take steps towards HOB. Returned to supine and boosted up in bed. Cognition Overall Cognitive Status: Confused UE PROM Overall BUE PROM WNL: WFL UE AROM Comment: Approx 45* AROM B shoulder flexion. No pain when ranged to WFL. Pt believes her decreased AROM is due to weakness. She also has significant BUE edema. Education Persons Educated: Patient Barriers To Learning: Cognitive Deficits Interventions: Repetition of Instructions;Physical Cueing Teaching Methods: Verbal Instruction Patient Response: More Instruction Required Topics: Role of OT, Goals for Therapy;ADL Compensatory Techniques Goal Formulation: With Patient Assessment Assessment: Decreased ADL Status;Decreased UE Strength;Decreased Safe/Judg during ADL;Decreased Cognition;Decreased Endurance;Decreased Self-Care Trans; Decreased Fine Motor Coordination;Decreased High-Level ADLs Prognosis: Good;w/Cont OT s/p Acute Discharge Comments: Patient limited by mental status and weakness today. Will continue to progress independence with ADLs. AM-PAC 6 Clicks Daily Activity Inpatient Putting on and taking off regular lower body clothes?: Total Bathing (Including washing, rinsing, drying): A Lot Toileting, which includes using toilet, bedpan, or urinal: Total Putting on and taking off regular upper body clothing: A Lot Taking care of personal grooming such as brushing teeth: A Lot Eating meals?: Total Daily Activity Raw Score: 9 Standardized (t-scale) score: 25.33 CMS 0-100% Score: 79.59 CMS G Code Modifier: CL Plan OT Frequency: 5x/week OT Plan for Next Visit: EOB grooming, continue progressing functional mobility ADL Goals Patient Will Perform Grooming: at Edge of Bed;in Chair;w/ Stand By Assist Patient Will Perform LE Dressing: w/ Minimum Assist Patient Will Perform Toileting: w/ Minimum Assist Functional Transfer Goals Pt Will Perform All Functional Transfers: Minimum Assist OT Discharge Recommendations OT Discharge Recommendations: Inpatient Setting Equipment Recommendations: Too early to be determined Therapist: LYNN Perla/Skye [phone] Date: 06/03/2018 ER MAKER * Phillip Sanchez, PT - 06/03/2018 1:30 PM MARKER MAKER PHYSICAL THERAPY ASSESSMENT MOBILITY: Mobility Progressive Mobility Level: Stand Level of Assistance: Assist X2 Assistive Device: Walker Time Tolerated: 0-10 minutes Activity Limited By: Weakness SUBJECTIVE: Subjective Significant hospital events: PMH significant for CAD s/p CABG 02/2018, combined HF, afib s/p L atrial appendage ligation not on AC d/t recurrent GIBs c/b transfusion-dependent anemia, HTN, DM, CKD, hypothyroidism, morbid obesity & liver disease c/b portal HTN, congestive colopathy, EV, GAVE & ascites. She was transferred from [facility] on 06/01 after presenting there on 05/30 for syncope/fatigue. Admit c/b AMS/respiratory failure requiring intubation, afib w/ RVR & septic shock from HCAP + UTI. On arrival, NE was able to be stopped & she was extubated 06/02 AM. Mental / Cognitive Status: Alert;Cooperative;Follows Commands;Confused Persons Present: Nursing Staff;Physical Therapist;Spouse Pain: Patient complains of pain;Patient does not rate pain Pain Location: (Rectal tube) Comments: 3L 02 NC Ambulation Assist: Independent Mobility at Household Level with Device Patient Owned Equipment: Roller Walker Home Situation: Lives with Family Type of Home: House Entry Stairs: Ramp In-Home Stairs: No Stairs Comments: Reports being able to get around house but with SOA. Was lately just put on 2L 02 NC at home a week ago. Fell off toilet in bathroom. Transfer from [facility] ROM: ROM LE ROM: Bilateral;Hip;Knee;Ankle;WFL STRENGTH: Strength Overall Strength: Generalized Weakness;No Focal Deficits Noted Gross Strength Grade: 3-/5 POSTURE/NEURO: Posture / Neurological Posture: Obesity BED MOBILITY/TRANSFERS: Bed Mobility/Transfers Bed Mobility: Supine to Sit: Maximum Assist;x2 People;Head of Bed Elevated; Assist with Trunk;Assist with B LE Bed Mobility: Sit to Supine: Maximum Assist;x2 People;Assist with Trunk;Assist with B LE Transfer Type: Sit to Stand Transfer: Assistance Level: From;Bed;Moderate Assist;x2 People Transfer: Assistive Device: Roller Walker Transfers: Type Of Assistance: Verbal Cues;For Strength Deficit;For Safety Considerations End Of Activity Status: In Bed;Nursing Notified;Instructed Patient to Request Assist with Mobility;Instructed Patient to Use Call Light BALANCE: Balance Sitting Balance: Static Sitting Balance;2 UE Support;Minimal Assist Standing Balance: Static Standing Balance;2 UE support;Minimal Assist;x2 People ACTIVITY/EXERCISE: Activity / Exercise Sit Edge Of Bed: 15 minutes Sit Edge Of Bed Assist: Minimal Assist Stand At Bedside : (20 seconds) EDUCATION: Education Persons Educated: Patient Patient Barriers To Learning: Confusion Interventions: Repetition of Instructions Teaching Methods: Verbal Instruction Patient Response: Verbalized Understanding Topics: Plan/Goals of PT Interventions;Use of Assistive Device/Orthosis; Mobility Progression;Up with Assist Only;Importance of Increasing Activity; Positioning;Recommend Continued Therapy;Therapy Schedule ASSESSMENT/PROGRESS: Assessment/Progress Impaired Mobility Due To: Decreased Strength;Decreased Activity Tolerance; Deconditioning;Medical Status Limitation Assessment/Progress: Should Improve w/ Continued PT AM-PAC 6 Clicks Basic Mobility Inpatient Turning from your back to your side while in a flat bed without using bed rails : A lot Moving from lying on your back to sitting on the side of a flatbed without using bedrails : A Lot Moving to and from a bed to a chair (including a wheelchair): A Lot Standing up from a chair using your arms (e.g. wheelchair, or bedside chair): A Lot To walk in hospital room: Total Climbing 3-5 steps with a railing: Total Raw Score: 10 Standardized (T-scale) Score: 28.13 Basic Mobility CMS 0-100%: 71.92 CMS G Code Modifier for Basic Mobility: CL GOALS: Goals Goal Formulation: With Patient Time For Goal Achievement: 5 days Pt Will Go Supine To/From Sit: w/ Moderate Assist Pt Will Transfer Bed/Chair: w/ Moderate Assist Pt Will Transfer Sit to Stand: w/ Moderate Assist PLAN: Plan Treatment Interventions: Mobility Training;Strengthening Plan Frequency: 5 Days per Week PT Plan for Next Visit: Bed mobility; standing; pre-gait in prep for transfers to chair RECOMMENDATIONS: PT Discharge Recommendations PT Discharge Recommendations: Inpatient Setting Therapist: Phillip Sanchez PT Date: 06/03/2018 ER MAKER * Bob Mcdermott - 06/03/2018 12:52 PM MARKER MAKER SPEECH-LANGUAGE PATHOLOGY DAILY TREATMENT NOTE Patient seen 1x this date. Documentation reflects all daily treatment sessions. SUMMARY OF THERAPY SESSION: Attempted to see pt x1 prior to session this am, however pt with bathroom conflicts. Dysphagia treatment completed this date. Moderate oropharyngeal dysphagia present at this time. Overt coughing episode noted following completion of 3 oz Water Protocol. Delayed cough x1 each noted with mech soft solids and nectar thick liquids. Anticipate pt remains at risk for aspiration. Vocal quality improved, remains minimally hoarse this date. Please see further details below. RECOMMENDATIONS: Remain NPO at this time. Continue Corpak for nutrition/medication/hydration. Initiate ice chip protocol (7-10 per hour). Guidelines provided to RN. Frequent oral care to minimize risk for aspiration of bacteria in secretions. Ongoing dysphagia assessment and treatment. Goal : Pt will participate in ongoing dysphagia assesment and treatment given mild-mod cues. Met Comment: PO trials of ice chips, thin and nectar thick liquids via tsp/cup/straw , thin liquids via 3 oz Water Protocol, pureed solids, and mech soft solids provided this date. Pt able to withdraw boluses with some assistance feeding. Formation and AP transfer appeared WFL. Mastication of mech soft solids appeared slightly slowed, anticipate due to missing dentition without upper dentures. No anterior bolus spillage nor oral residue noted. Swallow initiation appeared minimally delayed. Laryngeal elevation slightly reduced as judged via laryngeal palpation. Overt coughing episode noted following completion of 3 oz Water Protocol, starting/stopping also noted during completion of 3 oz. Delayed cough x1 each noted with mech soft solids and nectar thick liquids. Multiple swallows (2-3 per bolus) noted intermittently across consistencies indicating pharyngeal residue and/or laryngeal penetration. Continue to address this goal New Goal : Pt will tolerate ice chip protocol with less than 5% s/s of aspiration and without negative pulmonary status changes. PLAN / RECOMMENDATIONS: Continue treatment 3-5x/week Therapist: TYSHAWN Echavarria, L/CCC-COMMERCIAL INSURANCE UNDERWRITER Voalte: [id number] Date: 06/03/2018 ER MAKER * Ling Magallon, RN - 06/03/2018 11:10 AM MARKER MAKER 0930-Pt noted to be back in afib, EKG obtained. 1030-Pt back in sinus rhythm. 1500-Potato chips found on patients gown and coca-cola bottle tucked beneath the sheet. Patient admitted to eating the chips and stated "I made my mad so he gave them to me and left". Reeducated on NPO status with failed swallow study. Ursula Bowen SERVICE MECHANIC notified. Will educate the when he is at bedside. ER MAKER * Alex Rothman, PHARMD - 06/03/2018 8:54 AM MARKER MAKER Pharmacy Vancomycin Note Subjective: Deborah Fields is a 62 y.o. female being treated for empiric sepsis/PNA covg. Objective: Current Vancomycin Orders Medication Dose Route Frequency vancomycin (VANCOCIN) 1,250 mg in dextrose 5% (D5W) IVPB 1,250 mg Intravenous ONCE vancomycin, pharmacy to manage 1 each Service Per Pharmacy vancomycin, random dosing 1 each Intravenous Random Dosing Start Date of Vancomycin therapy: 06/01/2018 White Blood Cells Date/Time Value Ref Range Status 06/03/2018 0348 9.6 4.5 - 11.0 K/UL Final 06/02/2018 0340 4.0 (L) 4.5 - 11.0 K/UL Final 06/01/2018 1831 5.8 4.5 - 11.0 K/UL Final Creatinine Date/Time Value Ref Range Status 06/03/2018 0348 1.72 (H) 0.4 - 1.00 MG/DL Final 06/02/2018 0340 1.79 (H) 0.4 - 1.00 MG/DL Final 06/01/2018 1831 1.84 (H) 0.4 - 1.00 MG/DL Final Blood Urea Nitrogen Date/Time Value Ref Range Status 06/03/2018 0348 39 (H) 7 - 25 MG/DL Final Estimated CrCl: 45 Intake/Output Summary (Last 24 hours) at 06/03/2018 0854 Last data filed at 06/03/2018 0630 Gross per 24 hour Intake 713.4 ml Output 1785 ml Net -1071.6 ml Actual Weight: 124.8 kg (275 lb 2.2 oz) Dosing BW: 130 kg Drug Levels: Vancomycin Random Date/Time Value Ref Range Status 06/03/2018 0348 17.4 MCG/ML Final Assessment: Target levels for this patient: Re-dose ~15. Evaluation of level(s): Level ~28 hrs post 1.75 gm dose. Plan: 1. Cont vanco random dosing; will reduce next dose to 1.25 gm q24 based on level this AM and allow an additional 6 hours of clearance time (from AM lab) before redosing. 1.25 gm x1 today. 2. Next scheduled level(s): Tentative 24 hrs post dose. 3. Pharmacy will continue to monitor and adjust therapy as needed. Alex Rothman, PHARMD 06/03/2018 ER MAKER * Ursula Bowen, SERVICE MECHANIC - 06/03/2018 6:04 AM MARKER MAKER Pulmonary / Critical Care Progress Note Deborah Fields Today's Date: 06/03/2018 Admission Date: 06/01/2018 LOS: 2 days Active Problems: Type 2 diabetes mellitus with circulatory disorder, without long-term 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 (HCC) PAF (paroxysmal atrial fibrillation) (HCC) Atrial fibrillation with rapid ventricular response (HCC) Chronic gastrointestinal bleeding HLD (hyperlipidemia) Essential hypertension Acute on chronic diastolic heart failure due to coronary artery disease (HCC) Sepsis (HCC) Morbid obesity (HCC) Acute hypoxemic respiratory failure (HCC) Brief Hospital Course: Deborah Fields is a 62 y/o female with PMH significant for CAD s/p CABG 02/2018, combined HF, afib s/p L atrial appendage ligation not on AC d/t recurrent GIBs c /b transfusion-dependent anemia, HTN, DM, CKD, hypothyroidism, morbid obesity & liver disease c/b portal HTN, congestive colopathy, EV, GAVE & ascites. She was transferred from [facility] on 06/01 after presenting there on 05/30 for syncope/fatigue. Admit c/b AMS/respiratory failure requiring intubation, afib w/ RVR & septic shock from HCAP + UTI. On arrival, NE was able to be stopped & she was extubated 06/02 AM. W/ hx of HF & no longer in shock have cautiously resumed diuresis. Afib has been rate controlled here, dc'd amiodarone & resumed metoprolol/cardizem at lower than INSPECTOR FABRIC doses. Antbx narrowed to ceftriaxone and doxycycline for PNA & UTI. Assessment/Plan: NEURO Acute Encephalopathy (improved) - developed AMS the day of admit to OSH in the setting of septic shock - received 15 mg versed on 06/01 - CT head (OSH): no acute process - ammonia level 95 (06/02) - on exam is lethargic but appropriately following commands PLAN - hold INSPECTOR FABRIC tizanidine and tramadol PULM Acute Hypercarbic & Hypoxemic Respiratory Failure (improved) L Pleural Effusion - d/t HCAP - CT chest (OSH): circumferential L pleural effusion & densely consolidated L base w/ air bronchograms - extubated 06/02 - currently on 3 L/NC, O2 sat 93% PLAN - diuresis as below - have requested images from OSH CV Chronic Combined HF CAD, HTN - s/p CABG x 4 02/2018 - echo 04/01: LVEF 55-60%, dilated RV with hypocontractility, severe RA enlargement, moderate TR, moderate LA enlargement, + intra-atrial PFO with bidirectional shunt, s/p left atrial appendage ligation - repeat echo 06/02/18: LVEF 50-55%, no regional wall motion abnormalities; RV mildly dilated but function probably normal; mild to moderate MR; mild to moderate TR; peak PAP 41 mmHg; no pericardial effusion - EKG: no ST changes - troponin negative x2 - BNP 247 (prior 178) - grossly overloaded on exam & w/ pleural effusion - lasix 40 mg IV x 1 on 06/02 --> net - 1 L last 24 hrs PLAN - resume INSPECTOR FABRIC ASA & lasix Septic Shock (resolved) - arrived to on pressor, but essentially stopped immediately -central venous O2 sat 84% - SBP 110s-140s Chronic Afib w/ RVR s/p Atrial Appendage Ligation - no INSPECTOR FABRIC AC d/t recurrent GIBs - received amiodarone load at OSH & continued on a drip - HR 90s-100s; nursing staff documenting SR, but difficult to tell if there are P-waves PLAN - dc'd amiodarone 06/02 - resumed INSPECTOR FABRIC metoprolol at 50 mg BID (INSPECTOR FABRIC dose is 100 mg BID) - resumed INSPECTOR FABRIC diltiazem at 30 mg Q 6 hrs (INSPECTOR FABRIC dose is CD 180 mg daily) - obtain EKG GI GAVE Transfusion-Dependent Anemia - follows with GI - EGD 03/29: 3 columns of small EV, portal HTN gastropathy & mild GAVE - hgb 9.0 (at baseline) - plt 184, INR 1.2 PLAN - continue INSPECTOR FABRIC PPI Liver Disease - c/b portal HTN, congestive colopathy, EV, GAVE & ascites - limited prior w/u; was to see hepatology in clinic in June - 02/2018: diffuse hepatic steatosis - EGD as above - MELD-Na 14 RENAL DELROY on CKD (improving) - baseline Cr 1.3 - Cr 2.4 on arrival at OSH --> 1.72 this AM - I/O: net - 1 L last 24 hrs w/ 1.8 L UOP ENDO DM2 - INSPECTOR FABRIC regimen: NPH 14 units Q AM, novolog 4 units TID - BS 140s-240s last 24 hrs PLAN - resume NPH - decrease to low dose correction factor Hypothyroidism - TSH 1.99 (06/01) PLAN - continue INSPECTOR FABRIC synthroid ID Septic Shock HCAP UTI - WBC 9.6; afebrile - hx resistant e.coli UTI - per OSH micro tech, no blood cxs were drawn - urine cx (OSH) 05/28: + e.coli (resitant to cefazolin, ampicillin, levaquin, augmentin, cipro; sensitive to merrem, ceftriaxone & bactrim) - BAL 05/31 (OSH): usual upper respiratory rob, tess species - CT chest (OSH): dense L base consolidation - blood cx 06/01: NGTD - sputum cx 06/01: GS w/o organisms; cx NGTD - UA 06/01: 1+ leuks, + nitrites, 20-50 WBC, few bacteria - urine cx 06/01: pending - strep pneumo and legionella urine Ags negative - procalcitonin 0.22 (06/01) - no suitable pocket of ascites (on bedside US) for a paracentesis PLAN - dc vancomycin - change cefepime to ceftriaxone - continue doxycycline FEN - NPO - tube feedings: Isosource 1.5 at 40 mL/hr - IVF: none - review electrolytes and replace as needed PPX: Lines: PIV, R IJ TLC Drains/Tubes: Corpak Indwelling Urinary Catheter: No DVT: SCDs; Heparin GI: Protonix PT/OT: Yes Insulin: Yes Reviewed Quality Checklist with RN: Yes Code Status: Full Code Disposition/Family: Stable for transfer to floor. Ursula Bowen APRN Pulm/Critical Care Pager [phone] M2 (2nd call/night) Pager [phone] 06/03/2018 1401 __ Subjective: Deborah Fields is a 62 y.o. female who is awake and alert, resting in bed. States she did not sleep well last night; c/o back pain. Frequent BMs overnight and this AM. ROS: Denies ESTRELLA, chest pain/pressure, SOB, cough, abdominal pain, N/V, or rash. Objective: Medications: Scheduled Meds: aspirin chewable tablet 81 mg 81 mg Oral QDAY cefepime (MAXIPIME) 2 g/100 ml iso-osmotic IVPB 2 g Intravenous Q12H* diltiazem (cardIZEM) tablet 30 mg 30 mg Oral Q6H doxycycline (VIBRAMYCIN) tablet 100 mg 100 mg Oral BID folic acid (FOLVITE) tablet 1 mg 1 mg Oral QDAY furosemide (LASIX) tablet 40 mg 40 mg Oral QDAY heparin (porcine) PF syringe 5,000 Units 5,000 Units Subcutaneous Q8H insulin aspart U-100 (NOVOLOG FLEXPEN) injection PEN 0-14 Units 0-14 Units Subcutaneous ACHS lactulose oral solution 20 g 30 mL Oral TID levothyroxine (SYNTHROID) tablet 175 mcg 175 mcg Oral QDAY(07) magnesium oxide (MAG-OX) tablet 400 mg 400 mg Oral BID metoprolol tartrate (LOPRESSOR) tablet 50 mg 50 mg Oral BID pantoprazole(#) (PROTONIX) suspension 40 mg 40 mg Oral BID(05-05) potassium chloride SR (K-DUR) tablet 20 mEq 20 mEq Oral QDAY vancomycin, random dosing 1 each Intravenous Random Dosing Continuous Infusions: PRN and Respiratory Meds:pancrelipase 20,000 Units/ sodium bicarbonate 650 mg(# ) PRN ([employer] from Rx), [DISCONTINUED] vancomycin IVPB ONCE AND vancomycin, pharmacy to manage Per Pharmacy Vital Signs: Last Filed Vital Signs: 24 Hour Range BP: 115/49 (06/03 0500) Temp: 36.7 C (98.1 F) (06/03 0000) Pulse: 87 (06/03 0500) Respirations: 27 PER MINUTE (06/03 0500) SpO2: 93 % (06/03 0500) O2 Delivery: Nasal Cannula (06/03 0500) SpO2 Pulse: 87 (06/03 0500) Height: 162.6 cm (64") (06/02 0942) BP: (102-176)/(49-94) ABP: (98-139)/(47-69) Temp: [36.7 C (98.1 F)-36.9 C (98.4 F)] Pulse: [85-118] Respirations: [0 PER MINUTE-27 PER MINUTE] SpO2: [91 %-97 %] O2 Delivery: Nasal Cannula Intensity Pain Scale (Self Report): 8 (06/03/18 0400) Vitals: 06/02/18 0300 06/02/18 0942 06/03/18 0200 Weight: 131.3 kg (289 lb 7.4 oz) 131.3 kg (289 lb 7.4 oz) 124.8 kg (275 lb 2.2 oz) Intake/Output Summary: (Last 24 hours) Intake/Output Summary (Last 24 hours) at 06/03/2018 0604 Last data filed at 06/03/2018 0400 Gross per 24 hour Intake 676.88 ml Output 1805 ml Net -1128.12 ml Physical Exam: General: awake and alert, no distress, appears stated age Head: normocephalic, without obvious abnormality, atraumatic Eyes: conjunctivae/corneas clear Mouth/throat: moist mucous membranes; corpak in place Neck: supple, symmetrical, trachea midline Lungs: clear to auscultation bilaterally, diminished in bases; no wheeze Heart: regular rate and rhythm, no murmur appreciated Abdomen: obese, soft, non-tender; bowel sounds active Extremities: normal, atraumatic, no cyanosis, 1+ BUE & 3+ BLE edema Pulses: 2+ and symmetric, all extremities Skin: no rashes or lesions noted Neurologic: grossly normal Artificial airway: None Ventilator/ Respiratory Therapy: No Vent weaning trial: Not applicable Laboratory: LABS: Recent Labs 06/01/18 1831 06/01/18 2200 06/02/18 0340 06/03/18 0348 NA 140 -- 139 143 K 3.8 -- 3.5 3.2* CL 103 -- 103 105 CO2 26 -- 27 30 GAP 11 -- 9 8 BUN 38* -- 39* 39* CR 1.84* -- 1.79* 1.72* GLU 303* -- 302* 183* CA 9.0 -- 8.7 9.1 ALBUMIN 3.0* -- 2.6* 2.9* MG 2.0 -- 2.0 2.0 PO4 3.6 -- 3.2 3.2 TSH 2.850 1.990 -- -- Recent Labs 06/01/18 1831 06/02/18 0340 06/03/18 0348 WBC 5.8 4.0* 9.6 HGB 8.8* 8.1* 9.0* HCT 26.0* 24.2* 26.7* PLTCT 157 113* 184 INR -- 1.3* 1.2 AST 14 10 15 ALT 6* 5* 6* ALKPHOS 51 41 42 TNI 0.02 0.01 -- Estimated Creatinine Clearance: 45.4 mL/min (A) (based on SCr of 1.72 mg/dL (H)) . Vitals: 06/02/18 0300 06/02/18 0942 06/03/18 0200 Weight: 131.3 kg (289 lb 7.4 oz) 131.3 kg (289 lb 7.4 oz) 124.8 kg (275 lb 2.2 oz) Recent Labs 06/02/18 0340 06/02/18 1457 PHART 7.43 7.37 PO2ART 101* 83 Radiology and Other Diagnostic Procedures Review: Reviewed pertinent studies. ER MAKER Associated attestation - Juan Jose Verde MD - 06/03/2018 3:05 PM MARKER MAKER ATTESTATION I personally interviewed and examined the patient. I have reviewed the history , physical, impression and plan outlined by the Nurse Practitioner. The patient is more alert today. Breathing comfortably on 02 via NC at rest. No fever, chest pain, or n/v. Quite a bit of stool output with lactulose. On examination Gen: The pt. is well appearing in NAD. Alert and oriented x3. No increased work of breathing at rest Eyes: Sclera anicteric. EOM intact. HENT: OP clear w/o sores or lesions. No thrush. CV: RRR. No m/r/g. No JVD. 2+ bilat LE edema RESP: diminished bilat. No w/r. Normal chest excursion. ABD: obese. Soft. +BS MSK: no joint swelling, warmth, or erythema. Skin: No jaundice Neuro: CN-2-12 intact. Psych: mood and affect is appropriate My impression/plan: Mrs. Fields is a 62 y/o female with PMH of morbid obesity, CAD s/p CABG 2018, GAVE, transfusion dependence, Afib s/p AAP ligation, suspect chronic liver disease with hx of varices who was transferred from [facility] for acute respiratory failure, afib with RVR, and septic shock requiring mechanical ventillation and vasopressor. She was extubated on 06/02/18. Mental status now significantly improved. Plan to continue lasix 40mg daily Bronc with BAL at outside hospital w/o significant rob. Tailor abx to rocephin and doxycycline. Rocephin will cover e. Coli in urine as well. Now onset afib since CAGB. Decision made to not anticoagulate given transfusion dependence. Off amiodarone Resume INSPECTOR FABRIC metoprolol and diltiazem. Ready to transfer to floor. Staff name: Juan Jose Verde MD Date: 06/03/2018 * Pat Gabriel, RT - 06/02/2018 10:33 PM MARKER MAKER RT Adult Assessment Note NAME:Deborah Fields :1955 AGE: 62 y.o. ADMISSION DATE: 06/01/2018 DAYS ADMITTED: LOS: 1 day RT Treatment Plan: Protocol Plan: Procedures Vibrating PEP Therapy: Q6h While Awake PAP: Place a nursing order for "IS Q1h While Awake" for any of Lung Expansion indicators Oxygen/Humidity: O2 to keep SpO2 > 92% Monitoring: Pulse oximetry BID & PRN Vital Signs: Pulse: Pulse: 93 RR: Respirations: 22 PER MINUTE SpO2: SpO2: 95 % O2 Device: $$ O2 Device: Cannula Liter Flow: O2 Liter Flow: 2 lpm O2%: Breath Sounds: Respiratory Effort: Respiratory Effort: Non-Labored ER MAKER * Bob Mcdermott - 06/02/2018 3:16 PM MARKER MAKER SPEECH-LANGUAGE PATHOLOGY CLINICAL SWALLOW ASSESSMENT EVALUATION SUMMARY Summary: Clinical swallow evaluation completed this date. Suspect moderate- severe oropharyngeal dysphagia present at this time. Factors impacting dysphagia at this time include: recent intubation (05/31-06/02) and current mental status. Overt s/s of aspiration noted across consistencies provided this date including ice chips. Pt's spouse present during evaluation. Pt and spouse do not report any previous swallowing difficulty. Mild-moderately vocal quality is an indication of decreased airway protection during the swallow. Anticipate given time, pt's swallow function will improve. Please see further details below. RECOMMENDATIONS: Remain NPO at this time. Consider temporary alternative source of nutrition/ medication/hydration. Frequent oral care to minimize risk for aspiration of bacteria in secretions. Moistened oral swabs with RN for oral comfort/moisture and to facilitate functional swallow, only as tolerated. Ongoing dysphagia assessment and treatment. Oral Stage Summary*: PO trials of ice chips, thin and nectar thick liquids via tsp/cup, and pureed solids provided this date. Pt able to withdraw boluses with assistance feeding. Suspect reduced formation and minimally delayed AP transfer of boluses due to weakness and/or mental status. No chewable solids provided. No anterior bolus spillage nor oral residue noted. Pharyngeal Stage Summary*: Swallow initiation appeared minimally delayed. Laryngeal elevation reduced as judged via laryngeal palpation. Cough noted throughout evaluation, prior to and following PO trials. Consistent, delayed and immediate cough response with thin and nectar thick liquids provided this date. Delayed cough/throat clear also noted with ice chips and pureed solids this date. Multiple swallows (2-4 per bolus) noted intermittently across consistencies indicating pharyngeal residue and/or laryngeal penetration. Swallow Recommendations* NPO: Temporary Non-Oral Nutrition Plan: Continue Treatment 3-5x/week. Prognosis: Fair, Good NOMS Dysphagia Ratin4-Kejmkycifc-Uzdjil Dysphagia -Not able to swallow safely by mouth for nutrition/hydration but may take some consistency w/ consistent max cues in therapy only. Alternative method of feeding required. Results Reported to Physician: Yes Objective* Relevant Med Background: 62 y.o. female with a PMH of: CAD s/p CABG x4v 02/2018, combined HF, afib s/p L atrial appendage ligation not on AC d/t recurrent GIBs c /b transfusion-dependent anemia, HTN, DM, CKD, hypothyroidism, morbid obesity & liver disease c/b portal HTN, congestive colopathy, EV, GAVE & ascites. She was tx'd from [facility] on 06/01 after presenting there on 05/30 for syncope/fatigue. Admit c/b AMS/respiratory failure requiring intubation, afib w / RVR & septic shock from HCAP + UTI. On arrival NE was able to be stopped & she was extubated the following AM. W/ hx of HF & no longer in shock have cautiously resumed diuresis. Afib has been rate controlled here, will DC amio & resume metoprolol at lower than [employer]PECT[employer] dose. Continues on cefepime, doxy & vanco for HCAP & UTI. CXR: Interval intubation with persistence of left pleural effusion and atelectasis left lower lobe. Handedness: Right Lives With: Spouse Psychosocial Status: Willing and Cooperative to Participate Persons Present: Spouse Subjective* Pain: Patient has no complaint of pain Trach Presence: No Feeding Tube Present During Eval: None Nutrition* Nutrition Prior To Hospitalization: Oral, Regular, Thin Liquids Current Form Of Nutrition: NPO Oral Mech Exam Oral Mech WFL*: No Oral Mech Exam Summary*: Some difficulty following commands this date to complete oral mech, pt required several repetitions to complete some directions. Lingual protrusion to midline, lateral ROM appeared adequate. Pt demonstrated difficulty following commands for lingual strength task. Facial symmetry appreciated at rest. Jaw strength and ROM appeared adequate. Vocal quality was mild-moderately hoarse/weak. Volitional cough slightly weak. Lower dentition intact, wears full set of dentures on top but these are not present at hospital, per spouse. Swallow Strategies Small Bites and Sips: Ineffective Slow Rate of Intake: Ineffective Education* Persons Educated: Pt/Family Barriers To Learning: Cognitive Deficits, Decreased Alertness Interventions: Family Educated, Staff Educated Teaching Methods: Verbal, Demonstration Topics: Dysphagia Patient Response: Verbalized Understanding, More Instruction Required Goal Formulation: With Pt/Family Clinical Swallow Goals* Goal : Pt will participate in ongoing dysphagia assesment and treatment given mild-mod cues. Therapist:TYSHAWN Echavarria, Skye/[employer] UNDERWRITER Voalte: [id number] Date:06/02/2018 ER MAKER * Juan Jose Verde MD - 06/02/2018 1:35 PM MARKER MAKER Active Problems: Type 2 diabetes mellitus with circulatory disorder, without long-term 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 (HCC) PAF (paroxysmal atrial fibrillation) (HCC) Atrial fibrillation with rapid ventricular response (HCC) Chronic gastrointestinal bleeding HLD (hyperlipidemia) Essential hypertension Acute on chronic diastolic heart failure due to coronary artery disease (HCC) Sepsis (HCC) Morbid obesity (HCC) Acute hypoxemic respiratory failure (HCC) Mrs. Fields is a 62 y/o female with PMH of morbid obesity, CAD s/p CABG 2018, GAVE, transfusion dependence, Afib s/p AAP ligation, suspect chronic liver disease with hx of varices who was transferred from [facility] for acute respiratory failure, afib with RVR, and septic shock requiring mechanical ventillation and vasopressor. Upon arrival we were able to stop vasopressor support. This AM we were able to extubate following SBT. Following extubation she is sleepy but able to converse. No use of lactulose/ rifaxmin for hepatic encephalopathy in the past. Will hold on this for now and monitor On exam she continues to have significant dependent pitting edema. Plan to continue diuresis. Broad abx continued for HCAP and UTI. F/u outside cultures Now onset afib since CAGB. Decision made to not anticoagulate given transfusion dependence. At last discharge she was on rate control with metoprolol and diltz. Will stop amiodarone which was been started at [facility] for rate control in setting of shock. Resume INSPECTOR FABRIC metoprolol. If tolerates can resume diltiazem as well. Bedside US today without clear pocket for paracentesis. Note did not have ascites on 02/2018 abd US. Continue ICU care. Prognosis guarded. The patient is critically ill with problems as listed above. I spent 45 mins time in addition to time spent by the [employer] INCIDENT RESPONDER performing critical care services including radiology review, medication and record review, abx review, vent mngt , hemodynamic monitoring, serial assessment and coordination of care. Juan Jose Verde MD ER MAKER * Ling Magallon RN - 06/02/2018 10:25 AM MARKER MAKER 1025-Pt extubated per protocol on 2L nasal cannula. Family at bedside. 1100-Pt asking for water, bedside KUPIDS completed, patient failed, unable to maintain alertness. Will reassess in 12 hours. 1400-Speech at bedside for swallow eval 1500-right femoral arterial line removed, pressure held for approximately 15 minutes. Pressure dressing applied. Munoz catheter removed. ER MAKER * Eyad Feldman RT - 06/02/2018 8:33 AM MARKER MAKER Spontaneous breathing trial was started at 0830 on PS 5 / PEEP 5 FiO2 40%. Pre- trial NIF was -43 cmH2O (not able to get Vc though). Patient is awake and tried to pull breathing tube with mists on. Vitals are stable on trial. ET tube cuff leak is present. ER MAKER * Alex Rothman, PHARMD - 06/02/2018 8:05 AM MARKER MAKER Pharmacy Vancomycin Note Subjective: Deborah Fields is a 62 y.o. female being treated for empiric sepsis/PNA covg. Objective: Current Vancomycin Orders Medication Dose Route Frequency vancomycin, pharmacy to manage 1 each Service Per Pharmacy vancomycin, random dosing 1 each Intravenous Random Dosing Start Date of Vancomycin therapy: 06/01/2018 White Blood Cells Date/Time Value Ref Range Status 06/02/2018 0340 4.0 (L) 4.5 - 11.0 K/UL Final 06/01/2018 1831 5.8 4.5 - 11.0 K/UL Final Creatinine Date/Time Value Ref Range Status 06/02/2018 0340 1.79 (H) 0.4 - 1.00 MG/DL Final 06/01/2018 1831 1.84 (H) 0.4 - 1.00 MG/DL Final Blood Urea Nitrogen Date/Time Value Ref Range Status 06/02/2018 0340 39 (H) 7 - 25 MG/DL Final Estimated CrCl: ~40 Intake/Output Summary (Last 24 hours) at 06/02/2018 0805 Last data filed at 06/02/2018 0700 Gross per 24 hour Intake 934 ml Output 1020 ml Net -86 ml Actual Weight: 131.3 kg (289 lb 7.4 oz) Dosing BW: 130 kg Drug Levels: Vancomycin Random Date/Time Value Ref Range Status 06/01/2018 2200 10.5 MCG/ML Final Assessment: Target levels for this patient: Re-dose ~15. Plan: 1. Start vanco random dosing; level 10.5 on arrival from OSH and given 1.75 gm x1 early this AM. 2. Next scheduled level(s): Tentative 12 AM labs 3. Pharmacy will continue to monitor and adjust therapy as needed. Alex Rothman, PHARMD 06/02/2018 ER MAKER * Crispin Russ APRN - 06/02/2018 7:27 AM MARKER MAKER Critical Care Progress Note Deborah Fields Today's Date: 06/02/2018 Admission Date: 06/01/2018 LOS: 1 day Active Problems: Type 2 diabetes mellitus with circulatory disorder, without long-term 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 (HCC) PAF (paroxysmal atrial fibrillation) (HCC) Atrial fibrillation with rapid ventricular response (HCC) Chronic gastrointestinal bleeding HLD (hyperlipidemia) Essential hypertension Acute on chronic diastolic heart failure due to coronary artery disease (HCC) Sepsis (HCC) Morbid obesity (HCC) Assessment/Plan: Hospital Course: Deborah Fields is a 62 y.o. female with a PMH of: CAD s/p CABG x4v 02/2018, combined HF, afib s/p L atrial appendage ligation not on AC d/t recurrent GIBs c /b transfusion-dependent anemia, HTN, DM, CKD, hypothyroidism, morbid obesity & liver disease c/b portal HTN, congestive colopathy, EV, GAVE & ascites. She was tx'd from [facility] on 06/01 after presenting there on 05/30 for syncope/fatigue. Admit c/b AMS/respiratory failure requiring intubation, afib w / RVR & septic shock from HCAP + UTI. On arrival NE was able to be stopped & she was extubated the following AM. W/ hx of HF & no longer in shock have cautiously resumed diuresis. Afib has been rate controlled here, will DC amio & resume metoprolol at lower than INSPECTOR FAB[employer]IC dose. Continues on cefepime, doxy & vanco for HCAP & UTI. NEURO: Acute Encephalopathy - developed AMS the day of admit to OSH in the setting of septic shock - received 15mg versed on 06/01 - CT head (OSH) - with no acute process - stop sedation - on exam is lethargic but appropriately following commands - NH3 06/02 - ordered - hold INSPECTOR FABRIC: tizanidine, tramadol CV: Chronic Combined HF hx CAD, HTN - s/p CABG x4v 02/2018 - echo 04/01 - LVef 55-60%, dilated RV with hypocontractility, severe RA enlargement, moderate TR, mod LA enlargement, positive intra-atrial PFO with bidirectional shunt, s/p left atrial appendage ligation - EKG - no ST changes - trop - Neg x2 - BNP 247; prior 178 - grossly overloaded on exam & w/ pleural effusion - received 40mg lasix overnight --> IO were net even plan - echo 06/02 - pending - will give an additional 40mg lasix IV today - then resume INSPECTOR FABRIC: asa & lasix tomorrow Septic Shock (resolved) - arrived to on pressor but essentially stopped immediately -ScvO2 84% - SBP 130s Chronic Afib w/ RVR s/p atrial appendage ligation - no [employer]PECTOR FAB[employer]IC AC d/t recurrent GIBs - received amio load at OSH & continued on a drip - HR mostly 90s plan - amio 0.5mg/min --> DC - resume INSPECTOR [employer]AB[employer]IC metoprolol as 50mg bid (INSPECTOR FABRIC dose is 100mg bid) - hold INSPECTOR FABRIC: diltiazem CD 180 PULM: Acute Hypercarbic & Hypoxemic Respiratory Failure Pleural Effusion - d/t HCAP - CT chest (OSH) - circumferential L pleural effusion & densely consolidated L base w/ air bronchograms - PC 18/8, rr 18, 40%; overbreathing - ABG 7.43 / 45 / 101 / 28.9 plan - extubate - diuresis as above - have requested images from OSH GI: GAVE Transfusion-Dependent Anemia - follows with GI - EGD 03/29 - 3 columns of small EV, portal HTN gastropathy & mild GAVE - hgb 8.1 --> at baseline - continue INSPECTOR FABRIC: ppi Liver Disease - c/b portal HTN, congestive colopathy, EV, GAVE & ascites - limited prior w/u; was to see hepatology in clinic in Jun - U/S 02/2018 w/ diffuse hepatic steatosis - EGD as above - MELD-Na - 15 RENAL: DELROY on CKD - baseline Cr 1.3, 2.4 on arrival at OSH - Cr 1.79 - IO: 900cc / 1L - check urine lytes ENDO: DM2 - hold INSPECTOR FABRIC: NPH 14u qam, novolog 4u tid - LDCF - BG 194-261 - as just extubated will hold on NPH & increase to [facility] Hypothyroidism - TSH 06/01 - 1.99 - continue INSPECTOR FABRIC: synthroid ID: Septic Shock HCAP UTI - WBC 4; afebrile - hx resistant Ecoli UTI - per OSH micro tech no BC were drawn - UC (OSH) 05/28 +ecoli (R cefazolin, ampicillin, levaquin, augmentin, cipro & S merrem, ceftriaxone & bactrim) - bronch BAL (OSH) - normal rob w/ rare tess - CT chest (OSH) - dense L base consolidation - BC 06/01 - NGTD - SC 06/01 - GS w/o organisms; cx pending - UA 06/01 - 1+ leuks, +nitrites, 20-50 WBC, few bacteria - UC 06/01 - ordered - PCT 06/01 - 0.22 - spneumo & legionella - Neg - no suitable pocket of ascites for a paracentesis on bedside US - cefepime, doxy & vanco Prophylaxis Review: Lines: Central Line and Arterial Line --> will DC addie Tubes: ETT & OGT IVF: S/L Electrolytes: Reviewed and replaced as needed. Diet: No Insulin: Yes Urinary Catheter: Yes --> DC VTE ppx: start heparin sq; SCDs GI ppx: protonix PT/OT: Yes Code status: Full Code Disposition: Remain in the MICU. - Pt critically ill with the above diagnoses. I spent 70 minutes providing critical care services including: reviewing outside records and obtaining history from the patient/family members performing a physical examination serially reviewing laboratory, telemetry, hemodynamic, oximetry, and respiratory data reviewing radiographic images reviewing medications managing fluids/electrolytes, antibiotics, ICU prophylaxis, and mechanical ventilation developing the overall plan of care. Crispin Russ APRN Pulm/Critical Care Pager [phone] 06/02/2018 M2 team pager (2nd call/nights) [phone] __ Subjective: Deborah Fields is a 62 y.o. female who is intubated and lightly sedated. She is somnolent but appropriately follows commands. ROS: unable to obtain d/ t pt factors Objective: Medications: Scheduled Meds: cefepime (MAXIPIME) 2 g/100 ml iso-osmotic IVPB 2 g Intravenous Q12H* doxycycline (VIBRAMYCIN) tablet 100 mg 100 mg Oral BID insulin aspart U-100 (NOVOLOG FLEXPEN) injection PEN 0-7 Units 0-7 Units Subcutaneous 5 X Day levothyroxine (SYNTHROID) tablet 175 mcg 175 mcg Oral QDAY() pantoprazole (PROTONIX) injection 40 mg 40 mg Intravenous BID(05-05) SODIUM CHLORIDE 0.9 % IV SOLP (Cabinet Override) NOW vancomycin, random dosing 1 each Intravenous Random Dosing Continuous Infusions: amiodarone (CORDARONE) 360 mg in dextrose, iso-osm 200 mL infusion 0.5 mg/ min (06/02/18723) dexmedetomidine (PRECEDEX) 400 mcg in sodium chloride 0.9% (NS) 100 mL IV infusion 0.2 mcg/kg/hr (06/02/18723) fentaNYL (SUBLIMAZE) 1000 mcg/ NS 100 mL IV infusion (std conc)(premade) Stopped (06/01/181921) PRN and Respiratory Meds:[DISCONTINUED] vancomycin IVPB ONCE AND vancomycin, pharmacy to manage Per Pharmacy Vital Signs: Last Filed Vital Signs: 24 Hour Range BP: 137/73 (06/01 2300) Temp: 36.9 C (98.4 F) (06/02 0400) Pulse: 89 (06/02 0700) Respirations: 18 PER MINUTE (06/02 700) SpO2: 95 % (06/02 700) O2 Delivery: Endotracheal Tube (Oral) (06/02 600) SpO2 Pulse: 90 (06/02 700) Height: 162.6 cm (64") (06/01 1827) BP: (135-153)/(67-73) ABP: (98-158)/(47-75) Temp: [36.5 C (97.7 F)-37 C (98.6 F)] Pulse: [85-106] Respirations: [0 PER MINUTE-24 PER MINUTE] SpO2: [94 %-100 %] O2 Delivery: Endotracheal Tube (Oral) Vitals: 06/01/18182606/02/18 0300 Weight: 132 kg (291 lb 0.1 oz) 131.3 kg (289 lb 7.4 oz) Intake/Output Summary: (Last 24 hours) Intake/Output Summary (Last 24 hours) at 06/02/2018 0727 Last data filed at 06/02/2018 0700 Gross per 24 hour Intake 934 ml Output 1020 ml Net -86 ml Physical Exam: General: intubated on the vent in no distress, appears stated age Head: Normocephalic, without obvious abnormality, atraumatic Eyes: Conjunctivae/corneas clear Mouth/throat: Moist mucous membranes, ETT & OGT in place Neck: Supple, symmetrical, trachea midline Lungs: Clear to auscultation bilaterally; no wheeze Heart: Regular rate and rhythm, S1, S2 normal, no murmur appreciated Abdomen: Obese, soft, non-tender. Bowel sounds normal Extremities: Extremities normal, atraumatic, no cyanosis, 1+ BUE & 3+ BLE edema Pulses: 2+ and symmetric, all extremities Skin: No rashes or lesions noted Neurologic: lightly sedated but follows commands appropriately Artificial airway: Endotracheal Tube Ventilator/ Respiratory Therapy: Yes: NIF: [-40 cm H2O] Weaning Minute Volume (L/min): [7.37 L/min] Weaning Tidal Vol (mL) (Calc.): [388 mL] $$ Vital Capacity (mL): [446 ml] Weaning Respiratory Rate: [19 breaths/min] RSBI (Calculated): [49] Mode: Mode SPN-CPAP standby /PS Tidal Volume Spont (mL): [371 milliliters] Total Respiratory Rate (Breaths/Min): [20 breaths/minutes] Minute Volume (L/min): [7.68 liters/minutes] %MVspon: [100 %] O2%: [40 %] PIP Actual: [11 cm H20] PEEP/CPAP: [5 cm H2O] PSupport: [5 cm H20] $$ Extubation (RT only): Per protocol Vent weaning trial: Per protocol Laboratory: LABS: Recent Labs 06/01/18 1831 06/01/18 2200 06/02/18 0340 NA 140 -- 139 K 3.8 -- 3.5 CL 103 -- 103 CO2 26 -- 27 GAP 11 -- 9 BUN 38* -- 39* CR 1.84* -- 1.79* GLU 303* -- 302* CA 9.0 -- 8.7 ALBUMIN 3.0* -- 2.6* MG 2.0 -- 2.0 PO4 3.6 -- 3.2 TSH 2.850 1.990 -- Recent Labs 06/01/18 18306/02/18 0340 WBC 5.8 4.0* HGB 8.8* 8.1* HCT 26.0* 24.2* PLTCT 157 113* INR -- 1.3* AST 14 10 ALT 6* 5* ALKPHOS 51 41 TNI 0.02 -- Estimated Creatinine Clearance: 45 mL/min (A) (based on SCr of 1.79 mg/dL (H)). Vitals: 06/01/18 1827 06/02/18 0300 Weight: 132 kg (291 lb 0.1 oz) 131.3 kg (289 lb 7.4 oz) Recent Labs 06/01/18 2300 06/02/18 0340 PHART 7.41 7.43 PO2ART 83 101* Radiology and Other Diagnostic Procedures Review: Reviewed ER MAKER * Orville Younger RN - 06/02/2018 6:51 AM MARKER MAKER Heart Failure Nursing Progress Note Admission Date: 06/01/2018 LOS: 1 day Admission Weight: 132 kg (291 lb 0.1 oz) Most recent weights (inpatient): Vitals: 06/01/18 1827 06/02/18 0300 Weight: 132 kg (291 lb 0.1 oz) 131.3 kg (289 lb 7.4 oz) Weight change from previous day: 0.7 kg Fluid restriction ordered: n/a Intake/Output Summary: (Last 24 hours) Intake/Output Summary (Last 24 hours) at 06/02/2018 0652 Last data filed at 06/02/2018 0635 Gross per 24 hour Intake 934 ml Output 980 ml Net -46 ml Is patient incontinent No Anticipated discharge date: 06/13/18 Discharge goals: decreased O2 needs Daily Assessment of Patient Stated Goals: Short Term Goal Identified by patient (Short Term=during hospitalization): Anxiety controlled ER MAKER * Ling Magallon RN - 06/01/2018 7:02 PM MARKER MAKER Patient arrived to room # (6102 via cart accompanied by flight team. Patient transferred to the bed with assistance. Bedside safety checks completed. Initial patient assessment completed, refer to flowsheet for details. Admission skin assessment completed by: Pressure Injury Present on Hospital Admission (within [...] injury Yes 16. Nursing Nutrition Assessment Completed No See Doc Flowsheet for additional wound details. INTERVENTIONS: ER MAKER in this encounter H&P Notes * Luis Miguel Egan DO - 06/01/2018 7:15 PM MARKER MAKER Trauma/Critical Care Admission History and Physical Assessment Name: Deborah Fields Admission Date: 06/01/2018 Assessment/Plan: Active Problems: Type 2 diabetes mellitus with circulatory disorder, without long-term 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 (HCC) PAF (paroxysmal atrial fibrillation) (HCC) Atrial fibrillation with rapid ventricular response (HCC) Chronic gastrointestinal bleeding HLD (hyperlipidemia) Essential hypertension Acute on chronic diastolic heart failure due to coronary artery disease (HCC) Sepsis (HCC) Morbid obesity (HCC) Patient is a 62 y/o female with PMh of morbid obesity, CAD s/p CABG 2017, GAVE transfusion dependent, Afib s/p AAP ligation, who is transferred from [facility] for acute respiratory failure and shock requiring mechanical ventillation and vasopressor. Neuro Sedation/AMS - patient received 15mg versed in route by EMS, with hx of newly diagnosed liver disease - unclear etiology, hypercapneia vs. Metabolic encephalopathy from liver disease vs. Iatrogenic from medication vs. Hypothyroidism/myxedema, Plan > monitor off sedation > if agitated started propofol/fentanyl > Ammonia level, if elevated consider lactulose/refaxamin Pulmonary Acute Hypoxic and hypercapneic Respiratory Pneumonia/consolidation - CT at OSH, no images at this point - thoracic US consitent w/ consolidation, no clear pleural effusion visualized Hx Recent pleural effusion - drained by CTS after CABG - reported evaluated by surgery at OSH 05/31 with no further thoracentesis Plan Obtain outside CT scan History of Obesity Hypoventillation - limited PFTs in records with restrictive but no obstructive defect w/ BMI 50 Cardiovascular CAD s/p CABG February 2018 HFpEF - INSPECTOR FABRIC torsemide, metoprolol 100mg, diltiazem 180mg - POC echo w/ decreased EF - Last Echo EF 65% - Grossly volume overloaded on exam Plan - holding metoprolol/dilt - BNP, trop - Echo ordered - pending hemodynamics likely IV diuresis Afib with RVR, s/p atrial appendage ligation - not on A/C due to GAVE - INSPECTOR FAB[employer]IC metoprolol/cardiazem as above - Amio loaded at OSH per transfer report Plan - monitor, currently rates 90s-100s - if RVR can try low dose metoprolol/dilt prn GI GAVE w/ transfusion dependent Anemia - Hg 8.4 at OSH - follows with GI, recent endoscopy 03/29 w/ 3 columns of small varices, PGH, and mild GAVE Plan - trend Hg - IV BID PPI Cirrhosis - U/S 02/2018 w/ diffuse hepatic steatosis - Varices Plan - monitor MELD labs (inr 1.2 at osh) - consider Hepatology consult if not clinically improving - PPI ppx as above Renal DELROY on CKD - baseline Cr 1.3, 2.4 on arrival at OSH - unclear etiology, likely distributive w/ liver disease and apparent sepsis, concerned for congestive w/ fluid overload and hx of heart failure - Patient also reportedly on pyridium w/ orange secretions Plan - repeat Cr - Urine lytes' (pre-renal vs intrinsic) - monitor Uop - avoid nephrotoxins Endocrine Acquired Hypothyroidism - INSPECTOR FABRIC TSH 175mcg qday Plan > TSH, T4 > Restart 175mcg IDDM2 - INSPECTOR FABRIC NPH 14 units and 4 aspart w/ meals - BG 300 on admission Plan - Moderate dose correction factor ACHS - if poorly controlled, restart low dose lantus - Enteral feeds w/ OG once stable ID: Septic Shock - given Vanc/Zosyn - reports of PICC line for extended period for transfusions - hx of levaquin and zosyn resistant E coli - Concern for PNA with lung infiltration - UA clean at OSH - no leukocytosis, patient tachy, tachypneic, hypothermic on arrival - multiple hospitalizations in last month, surgical procedures, high risk for HCAP Plan - blood and resp cultures obtained - procal, repeat UA - Continue Vancomycin/Zosyn with clinical improvement and negative urinary source - Diagnostic paracentesis if ascites for SBP R/O Prophylaxis Review: Lines: Yes; Arterial Line; Indication: Continuous BP monitoring; Location: Femoral Central Line; Indication: Med not deliverable peripherally; Type: Internal jugular Urinary Catheter: Yes; Retain munoz due to: Acute renal insufficiency or failure Antibiotic Usage: Yes; Infection present or suspected: Lung; Pneumonia VTE: Pharmacological prophylaxis; Contraindication: Bleeding risk; transfusion dependent GI losses Disposition/Family: intubated/sedated Code Status: Full Code __ Primary Care Physician: Carla Wilson PCP Unknown Chief Complaint: Respiratory Failure History of Present Illness: Deborah Fields is a 62 y.o. female who presented to [facility] by EMS 12/16 AM for fall without head trauma and subsequently was found to be hypothermic, became hypotensive, altered, and required intubation. Patient developed shock requiring pressors and transfer to ICU Past Medical History: Diagnosis Date Acquired hypothyroidism Arthritis Back pain Bleeding disorder (HCC) CAD (coronary artery disease), lumbee coronary artery 02/16/2018 Chronic diastolic heart failure [...] Paternal Grandmother Cancer Paternal Grandfather Social History Socioeconomic History Marital status: Spouse name: Not on file Number of children: Not on file Years of education: Not on file Highest education level: Not on file Social Needs Financial resource strain: Not on file Food insecurity - worry: Not on file Food insecurity - inability: Not on file Transportation needs - medical: Not on file Transportation needs - non-medical: Not on file Occupational History Not on file Tobacco Use Smoking status: Former Smoker Packs/day: 2.00 Years: 10.00 Pack years: 20.00 Types: Cigarettes Last attempt to quit: 09/28/1981 Years since quittin.6 Smokeless tobacco: Never Used Substance and Sexual Activity Alcohol use: Yes Comment: Seldom Drug use: No Sexual activity: Not on file Other Topics Concern Not on file Social History Narrative Not on file Immunizations (includes history and patient reported): There is no immunization history for the selected administration types on file for this patient. Allergies: Sulfa (sulfonamide antibiotics); Duricef [cefadroxil]; Pravastatin; and Simvastatin Medications: Medications Prior to Admission Medication Sig acetaminophen (TYLENOL) 325 mg tablet Take two [...] every 6 hours as needed for Pain. Review of Systems: Review of systems not obtained from patient due to patient factors. Vital Signs: Last Filed In 24 Hours Vital Signs: 24 Hour Range BP: 153/72 (06/01 1900) Temp: 36.5 C (97.7 F) (06/01 1900) Pulse: 106 (06/01 1900) Respirations: 8 PER MINUTE (06/01 1900) SpO2: 94 % (06/01 1900) SpO2 Pulse: 107 (06/01 1900) Height: 162.6 cm (64") (06/01 1827) BP: (153)/(72) ABP: (114)/(62) Temp: [36.5 C (97.7 F)] Pulse: [106] Respirations: [8 PER MINUTE] SpO2: [94 %-99 %] Physical Exam: Gen: Sedated, morbidly obese age appearing female Eyes: PERRLA, no icterus Neck: Supple, No JVP appreciated Chest: mechanical BS, decreased BS L base Heart: Irregular, tachy, No murmurs appreciated Abd: Obese, distended, NBS, mild fluid wave Extremities: pulses 2+ Bilat LE, Diffuse 4+ pitting edema to thighs bilat Neuro: Sedated, Skin: no lesions, bruising, petechia Lines: Femoral Arterial line, R IJ, R chest wall PIV. Ventilator/ Respiratory Support: Yes: Weaning readiness screen (RT Only):: Implement protocol Weaning readiness screen Met (RT Only):: Other (see comments) Mode: P/AC Tidal Volume Spont (mL): [490 milliliters-501 milliliters] Set RR: [16 breaths/minutes] Total Respiratory Rate (Breaths/Min): [16 breaths/minutes-18 breaths/minutes] Minute Volume (L/min): [7.51 liters/minutes-8.12 liters/minutes] %MVspon: [0 %] O2%: [50 %] PIP (set): [30 cm H20] PIP Actual: [30 cm H20-31 cm H20] PEEP/CPAP: [8 cm H2O] Delta P/PControl (PIP-PEEP)(calc): [22 cm H2O] Lab: 24-hour labs: Results for orders placed or performed during the hospital encounter of (from the past 24 hour(s)) CBC AND DIFF Collection Time: 06/01/18 6:31 PM Result Value Ref Range White Blood Cells 5.8 4.5 - 11.0 K/UL RBC 2.77 (L) 4.0 - 5.0 M/UL Hemoglobin 8.8 (L) 12.0 - 15.0 GM/DL Hematocrit 26.0 (L) 36 - 45 % MCV 93.7 80 - 100 FL MCH 31.7 26 - 34 PG MCHC 33.8 32.0 - 36.0 G/DL RDW 16.7 (H) 11 - 15 % Platelet Count 157 150 - 400 K/UL MPV 8.2 7 - 11 FL Neutrophils 92 (H) 41 - 77 % Lymphocytes 6 (L) 24 - 44 % Monocytes 2 (L) 4 - 12 % Eosinophils 0 0 - 5 % Basophils 0 0 - 2 % Absolute Neutrophil Count 5.30 1.8 - 7.0 K/UL Absolute Lymph Count 0.30 (L) 1.0 - 4.8 K/UL Absolute Monocyte Count 0.10 0 - 0.80 K/UL Absolute Eosinophil Count 0.00 0 - 0.45 K/UL Absolute Basophil Count 0.00 0 - 0.20 K/UL COMPREHENSIVE METABOLIC PANEL Collection Time: 06/01/18 6:31 PM Result Value Ref Range Sodium 140 137 - 147 MMOL/L Potassium 3.8 3.5 - 5.1 MMOL/L Chloride 103 98 - 110 MMOL/L Glucose 303 (H) 70 - 100 MG/DL Blood Urea Nitrogen 38 (H) 7 - 25 MG/DL Creatinine 1.84 (H) 0.4 - 1.00 MG/DL Calcium 9.0 8.5 - 10.6 MG/DL Total Protein 6.5 6.0 - 8.0 G/DL Total Bilirubin 1.0 0.3 - 1.2 MG/DL Albumin 3.0 (L) 3.5 - 5.0 G/DL Alk Phosphatase 51 25 - 110 U/L AST (SGOT) 14 7 - 40 U/L CO2 26 21 - 30 MMOL/L ALT (SGPT) 6 (L) 7 - 56 U/L Anion Gap 11 3 - 12 eGFR Non 28 (L) >60 mL/min eGFR 34 (L) >60 mL/min MAGNESIUM Collection Time: 06/01/18 6:31 PM Result Value Ref Range Magnesium 2.0 1.6 - 2.6 mg/dL PHOSPHORUS Collection Time: 06/01/18 6:31 PM Result Value Ref Range Phosphorus 3.6 2.0 - 4.5 MG/DL BNP (B-TYPE NATRIURETIC PEPTI) Collection Time: 06/01/18 6:31 PM Result Value Ref Range B Type Natriuretic Peptide 247.0 (H) 0 - 100 PG/ML TROPONIN-I Collection Time: 06/01/18 6:31 PM Result Value Ref Range Troponin-I 0.02 0.0 - 0.05 NG/ML TSH WITH FREE T4 REFLEX Collection Time: 06/01/18 6:31 PM Result Value Ref Range TSH 2.850 0.35 - 5.00 MCU/ML BLOOD GASES, ARTERIAL Collection Time: 06/01/18 6:35 PM Result Value Ref Range pH-Arterial 7.40 7.35 - 7.45 pCO2-Arterial 46 (H) 35 - 45 MMHG pO2-Arterial 118 (H) 80 - 100 MMHG Base Excess-Arterial 3.2 MMOL/L O2 Sat-Arterial 98.8 95 - 99 % Ktlpotmtsla-DEZ-Boc 27.3 21 - 28 MMOL/L LACTIC ACID (BG - RAPID LACTATE) Collection Time: 06/01/18 6:35 PM Result Value Ref Range Lactic Acid,BG 1.3 0.5 - 2.0 MMOL/L BLOOD BANK SAMPLE HOLD Collection Time: 06/01/18 6:35 PM Result Value Ref Range BB Sample hold IN LAB POC GLUCOSE Collection Time: 06/01/18 6:44 PM Result Value Ref Range Glucose, POC 321 (H) 70 - 100 MG/DL O2 SATURATION, CENTRAL VENOUS Collection Time: 06/01/18 7:00 PM Result Value Ref Range O2 Sat, Central Venous 83.6 % BLOOD GASES, ARTERIAL Collection Time: 06/01/18 8:00 PM Result Value Ref Range pH-Arterial 7.46 (H) 7.35 - 7.45 pCO2-Arterial 39 35 - 45 MMHG pO2-Arterial 70 (L) 80 - 100 MMHG Base Excess-Arterial 3.9 MMOL/L O2 Sat-Arterial 95.0 95 - 99 % Lzveqvnciae-ICI-Dpt 27.9 21 - 28 MMOL/L POC Glucose (Download): (!) 815 (06/01/18 3058) Radiology and Other Diagnostic Procedures Review: Pertinent radiology reviewed. Luis Miguel Egan DO Pager [phone] ER MAKER Associated attestation - Ping Ware MD - 06/02/2018 3:47 AM MARKER MAKER MICU STAFF NOTE Pt seen, personally fully examined, and discussed with housestaff team on . I have reviewed all pertinent labs, images, and diagnostic studies outlined in the resident's note. I agree with the objective findings and with the plan of care as documented by the resident with the exceptions noted. Ms. Fields is critically ill with septic shock and associated multiorgan failure (acute encephalopathy, hypercarbic and hypoxemic respiratory failure, DELROY on CKD) thought secondary to HCAP and UTI. She is accepted in transfer from [facility] after presenting there on 05/30/18 with generalized weakness/fatigue and syncope. Hospital course notable for altered mental status and hypercarbic respiratory failure requiring intubation (), shock requiring vasopressor support with NE, afib with RVR improved on amiodarone, diagnoses of L-sided pneumonia (by CT chest) and E coli UTI treated with vanc/ zosyn, and progressively worsening renal function with poor urine output and rising Cr (peak 2.4); this constellation prompting transfer for further management. 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 Exam notable for intubated and sedated, unresponsive (received versed 15mg enroute), comfortable-appearing morbidly obese woman, in no acute distress. Now off NE gtt. Sluggishly reactive pupils, dry mucous membranes, right CVC in place , ETT and OGT in place, tachycardic heart, diminished breath sounds on left, obese abdomen without focal tenderness, 3+ peripheral edema, warm skin. Labs and imaging personally reviewed, notable for no leukocytosis, stable anemia Hb 8.8 (at baseline), slightly improved thrombocytopenia 157 (baseline 130s), nl electrolytes, serum CO2 26 (baseline mid-30s) with nl anion gap 11, DELROY on CKD with Cr 1.8 (baseline 1.3), nl lactate 1.3 and trop 0.02, BNP 247 (prior 1180), UA with 1+LE, 20-50 WBC, few bacteria, packed yeast. ScvO2 84% consistent with septic shock. ABG 7.40/46/118/27 on (PAC 30/8, 16, FiO2 0.5) consistent with compensated/chronic respiratory acidosis. CXR with layering left pleural effusion, chronic LLL ateletasis vs infiltrate. CT head (OSH) with no acute process. CT chest (OSH) with circumferential left pleural effusion and fairly densely consolidated left base with air bronchograms. TODD 04/01 with LVef 55-60% , dilated RV with hypocontractility, severe right atrial enlargement with moderate TR and PASP 30, moderate left atrial enlargement and evidence for intra -atrial PFO with bidirectional shunt, s/p left atrial appendage ligation. Overall impression is that of septic shock and associated multiorgan failure ( acute encephalopathy, hypercarbic and hypoxemic respiratory failure, DELROY on CKD ) thought secondary to HCAP and UTI. OSH cultures show Ecoli UTI and sputum with GPC in pairs & chains. Our plan is sepsis protocol including hemodynamic support with vasopressors prn (none currently- NE weaned off on arrival) to maintain SBP>90 or MAP>65, judicious diuresis for volume overload now that she is off pressors, continue amiodarone for afib, obtain TTE to assess cardiac function (particularly in light of extensive cardiac comorbidities), continue invasive mechanical ventilation with lung protective strategies and as guided by serial blood gas, broad infectious workup including paracentesis to assess for SBP, empiric antibiotics with vanc/cefepime/doxycycine for HCAP and E coli UTI (f/u sensitivities from OSH cultures; prior Ecoli here is resistant to levofloxacin and intermediate to Zosyn), urine studies to assess DELROY (ddx prerenal, cardiorenal, hepatorenal, hemodynamic ATN), serological workup for chronic liver disease especially as she has yet to complete this in outpatient setting ( missed appts), check ammonia and begin lactulose/rifaximin if any concern for hepatic encephalopathy, and hold sedation and further psychotropic medications to assess mental status. Remainder of plan as documented in resident's note, including general ICU supportive care. I spent 80 minutes (excluding time spent performing or supervising any procedures) providing and personally directing critical care services including : - systems review and physical examination - review of hemodynamic, respiratory, telemetry, laboratory, and imaging data - review of medications - management of fluids/electrolytes, antibiotics, vasopressors, sepsis protocol , gas exchange/mechanical ventilation, ICU prophylaxis, and ICU core measures - organization and coordination of care plan with nursing staff and residents - directing the formulation of the overall plan of care outlined above Ping Ware [phone] in this encounter Consult Notes * Joel Jerome MD - 06/11/2018 1:42 PM MARKER MAKER Associated Order(s): CONSULT REHABILITATION MEDICINE PHYSICIAN Physical Medicine & Rehabilitation Consult Note Date of Service: 06/11/2018 Deborah Fields is a 62 y.o. female. : 1955 Primary Insurance: [place] Secondary Insurance: Tertiary Insurance: Financial Class: MEDICAID PENDING Date of Admission: 06/01/2018 Referring Physician: Negro Tom MD Reason for Consult: evaluate for Post-Acute Rehab/Placement Precautions: Fall Active Problems Acute on chronic hypoxic/hypercapnic respiratory failure HCAP UTI Hx Liver disease Anemia of chronic dz Septic shock Acute on chronic combined heart failure Gait abnormality Impaired self cares Assessment & Plan Deborah Fields is a 62 y.o. female admitted to [facility] on 06/01/2018 with the following issues: Debility 2/2 HCAP, septic shock, acute respiratory failure, acute on chronic heart failure Impairments: weakness Activity Limitations: dressing - upper, dressing - lower, transfers and ambulation Participation Restrictions: unable to return home safely Post-acute care rehabilitation needs: acute inpatient rehabilitation Given the patient's high medical complexity and co morbidities including, but not limited to debility in the setting of prolonged hospitalization and complex medical illness including acute hypoxic/hypercapnic respiratory failure requiring mechanical ventilation in setting of HCAP, severe sepsis w/ shock, requiring transient pressor support, underlying Hx of liver disease, chronic anemia, anasarca requiring aggressive diuresis, and in conjunction with significant functional goals with PT and OT, the patient will require daily physician oversight and intensive rehab therapies at an acute inpatient rehabilitation after acute inpatient hospitalization. Our service will continue to monitor functional progress with current barriers to acute inpatient rehab listed below. The patient would prefer to discharge to a facility closer to her home if possible. She reports she is very motivated to participate in intensive rehab therapies. Goals & Barriers Family / Patient Goals: return home with family assistance Mobility Goals: Overall goal is Stand by assistance Activities of Daily Living (ADLs) Goals: Overall goal is Stand by assistance Cognition / Communication Goals: Cognition grossly intact Barriers: High burden of care Facilitators: good home setup, good family / social support and patient motivation Rehabilitation Prognosis: Good Tolerance for three hours of therapy a day: Good PT, OT consulted to address deficits as below Impaired gait/mobility: INSPECTOR FABRIC pt was independent at home level with assistive device Currently requiring min assist for transfers, SBA for very short gait w/ RW and balance deficits Will benefit from continued work with PT to address mobility deficits Impaired ADL: INSPECTOR FABRIC pt was independent Currently requiring min assist for transfers Will benefit from ongoing OT to address functional deficits Thank you for this consultation. Please call our consult pager with questions or concerns. Joel Jerome MD Rehab Consult Pager: [phone] History of Present Illness Hospital Course: Mrs Fields is a 62 y/o F w/ Hx of liver dz (diffuse heptaic steatosis), chronic anemia, DM II, CAD, HTN, who presented to OSH with acute respiratory failure (hypoxic/hypercapnic) in the setting of septic shock with underlying HCAP, UTI, transferred to [facility] for definitive tx. She was intubated on transfer and requiring pressor support which was subsequently discontinued. She was successfully extubated on 06/02, requiring aggressive diuresis in the setting of chronic liver failure and acute on chronic mixed diastolic/ssytolic heart failure, currently tolerating 2L NC (baseline). She had completed IV abx therapies. Pt is working with PT and OT to address functional and mobility deficits, rehab is now consulted for post-acute rehab/placement recommendations. Past Medical History: Diagnosis Date Acquired hypothyroidism Arthritis Back pain Bleeding disorder (HCC) CAD (coronary artery disease), lumbee coronary artery 02/16/2018 Chronic diastolic heart failure (HCC) 03/31/2018 Coronary artery disease Diabetes mellitus (HCC) Type II Essential hypertension 02/23/2018 Hypertension Stomach disorder Vision decreased Past Surgical History: Procedure Laterality Date HX HEART CATHETERIZATION 2017 CORONARY STENT PLACEMENT 2017 ANKLE SURGERY Left ankle reconstruction COLONOSCOPY HX KNEE ARTHROSCOPY Left HX TONSIL AND ADENOIDECTOMY TUBAL LIGATION UPPER GASTROINTESTINAL ENDOSCOPY Social History Socioeconomic History Marital status: Spouse name: Not on file Number of children: Not on file Years of education: Not on file Highest education level: Not on file Social Needs Financial resource strain: Not on file Food insecurity - worry: Not on file Food insecurity - inability: Not on file Transportation needs - medical: Not on file Transportation needs - non-medical: Not on file Occupational History Not on file Tobacco Use Smoking status: Former Smoker Packs/day: 2.00 Years: 10.00 Pack years: 20.00 Types: Cigarettes Last attempt to quit: 09/28/1981 Years since quittin.7 Smokeless tobacco: Never Used Substance and Sexual Activity Alcohol use: Yes Comment: Seldom Drug use: No Sexual activity: Not on file Other Topics Concern Not on file Social History Narrative Not on file Family History Problem Relation Age of Onset [...] Grandmother Diabetes Paternal Grandmother Cancer Paternal Grandfather Scheduled Meds: aspirin chewable tablet 81 mg 81 mg Oral QDAY dextran 70/hypromellose (NATURAL BALANCE TEARS) 0.1/0.3 % ophthalmic solution 1 drop 1 drop Both Eyes QID fluconazole (DIFLUCAN) tablet 200 mg 200 mg Oral QDAY folic acid (FOLVITE) tablet 1 mg 1 mg Oral QDAY furosemide (LASIX) injection 40 mg 40 mg Intravenous BID(9-17) heparin (porcine) PF syringe 5,000 Units 5,000 Units Subcutaneous Q8H insulin aspart U-100 (NOVOLOG FLEXPEN) injection PEN 0-7 Units 0-7 Units Subcutaneous ACHS insulin NPH (HUMULIN N KwikPen) injection PEN 14 Units 14 Units Subcutaneous QDAY(07) levothyroxine (SYNTHROID) tablet 175 mcg 175 mcg Oral QDAY(07) magnesium oxide (MAG-OX) tablet 400 mg 400 mg Oral BID metoprolol tartrate (LOPRESSOR) tablet 50 mg 50 mg Oral BID pantoprazole DR (PROTONIX) tablet 40 mg 40 mg Oral BID(-21) potassium chloride SR (K-DUR) tablet 20 mEq 20 mEq Oral QDAY(12) senna/docusate (SENOKOT-S) tablet 2 tablet 2 tablet Oral BID tiZANidine (ZANAFLEX) tablet 4 mg 4 mg Oral QHS vitamins, multiple tablet 1 tablet 1 tablet Oral QDAY Continuous Infusions: PRN and Respiratory Meds:acetaminophen Q6H PRN, dextromethorphan/guaiFENesin Q4H PRN, polyethylene glycol 3350 BID PRN, prochlorperazine Q6H PRN, sodium chloride PRN, traMADol Q6H PRN Allergies Allergen Reactions Sulfa (Sulfonamide Antibiotics) RASH Duricef [Cefadroxil] NAUSEA AND VOMITING Pravastatin NAUSEA AND VOMITING Simvastatin NAUSEA AND VOMITING Prior Level of Function Self-Care/ADLs: Independent Mobility: independent at home level w/ assistive device Home Environment: Home Situation: Lives with Family (06/11/2018 10:00 AM) Patient Owned Equipment: Roller Walker (06/11/2018 10:00 AM) Type of Home: House (06/11/2018 10:00 AM) Entry Stairs: Ramp (06/11/2018 10:00 AM) In-Home Stairs: No Stairs (06/11/2018 10:00 AM) Comments: Reports being able to get around house but with SOA. Was lately just put on 2L 02 NC at home a week ago. Fell off toilet in bathroom. Transfer from [facility] (06/07/2018 10:18 AM) No Data Recorded @ADDRESSFULL@ Current Level Of Function: PT Gait:Gait Distance: 2 feet(x2, during transfers - anticipate pt could walk further) Gait: Assistance Level: Standby Assist Gait: Assistive Device: Roller Walker Bed Mobility/Transfers Bed Mobility: Supine to Sit: Standby Assist, Verbal Cues, Head of Bed Elevated, Use of Rail, Requires Extra Time Bed Mobility: Sit to Supine: Standby Assist, Verbal Cues, Bed Flat, Use of Rail , Requires Extra Time Comments: Sitting up in bedside chair with TABS alarm activated and call light within reach. Transfer Type: Sit to/from Stand Transfer: Assistance Level: Bed, To/From, Bed Side Chair, Standby Assist Transfer: Assistive Device: Roller Walker Transfers: Type Of Assistance: Verbal Cues, Requires Extra Time Other Transfer Type: Sit to/from Stand Other Transfer: Assistance Level: Bed, To/From, Bed Side Chair, Minimal Assist Other Transfer: Assistive Device: Roller Walker Other Transfer: Type Of Assistance: For Balance, For Strength Deficit, For Safety Considerations End Of Activity Status: In Bed, Nursing Notified, Instructed Patient to Use Call Light Comments: Pt required total assist for hygiene after voiding. Pt declined attempting on her own due to stating she is "too swollen". OT ADL's Where Assessed: Edge of Bed, Chair LE Dressing Assist: Total Assist(BLE too edematous to reach or bend) LE Dressing Deficits: Don/Doff R Sock, Don/Doff L Sock Toileting Assist: Moderate Assist Toileting Deficits: Perineal Hygiene, Bedside Commode(no LB clothing to manage) Functional Transfer Assist: Moderate Assist(Supine to sit with HOB elevated) Functional Transfer Deficits: Supervision/Safety, Steadying Comment: Patient ambulates to the commode placed across the room using roller walker, contact guard assist. Cues to reach hands back for commode arm rest prior to sitting. COMMERCIAL INSURANCE UNDERWRITER COGNITIVE EVALUATION SUMMARY PRAGMATICS: BEHAVIOR: AUDITORY COMPREHENSION: ORIENTATION: AUDITORY ATTENTION/WORKING MEMORY: AUDITORY MEMORY/SUSTAINED ATTENTION: NEW LEARNING: SEQUENCING/ORGANIZATION: PROBLEM SOLVING: REASONING: MATH/MONEY SKILLS: VISUAL PERCEPTUAL: SWALLOW EVALUATION SUMMARY Summary: Clinical swallow evaluation completed this date. Suspect moderate- severe oropharyngeal dysphagia present at this time. Oral Stage Summary*: PO trials of ice chips, thin and nectar thick liquids via tsp/cup, and pureed solids provided this date. Pt able to withdraw boluses with assistance feeding. Suspect reduced formation and minimally delayed AP transfer of boluses due to weakness and/or mental status. No chewable solids provided. No anterior bolus spillage nor oral residue noted. Pharyngeal Stage Summary*: Swallow initiation appeared minimally delayed. Laryngeal elevation reduced as judged via laryngeal palpation. Cough noted throughout evaluation, prior to and following PO trials. Consistent, delayed and immediate cough response with thin and nectar thick liquids provided this date. Delayed cough/throat clear also noted with ice chips and pureed solids this date. Multiple swallows (2-4 per bolus) noted intermittently across consistencies indicating pharyngeal residue and/or laryngeal penetration. Swallow Recommendations* NPO: Temporary Non-Oral Nutrition Plan: Continue Treatment __x/week (Comment). Prognosis: Fair, Good Review of Systems A 14 point review of systems was negative except for: that noted in the HPI Physical Exam BP: 126/62 (06/11 1200) Temp: 36.7 C (98.1 F) (06/11 1200) Pulse: 82 (06/11 1200) Respirations: 20 PER MINUTE (06/11 1200) SpO2: 98 % (06/11 1200) O2 Delivery: Nasal Cannula (06/11 1200) Body mass index is 51.22 kg/m. Gen: awake, alert, NAD, obese HEENT: NCAT, EOMI, MMM Neck: Supple and symmetric Heart: Extremities are well perfused Lungs: respirations even and non-labored Abdomen: Soft, non-distended Psych: pleasant mood/appropriate affect Ext: No c/c/e MS: Root Right Left Elbow Flexion C5 4 4 Wrist Extension C6 4 4 Elbow Extension C7 4- 4- Finger Flexion C8 4 4 Finger Abduction T1 4 4 Hip Flexion L2 2 2 Knee Extension L3 3 3 Dorsiflexion L4 4 4 EHL Extension L5 4 4 Plantarflexion S1 4 4 Neuro: Cranial Nerves Cranial Nerves 2-12 are grossly intact DTR's no hyperreflexia Upper Extremity Tone Normal Lower Extremity Tone Normal Upper Extremity Sensation Intact to light touch bilaterally Lower Extremity Sensation Intact to light touch bilaterally Memory/Concentration grossly intact Intake/Output Summary (Last 24 hours) at 06/11/2018 1353 Last data filed at 06/11/2018 1015 Gross per 24 hour Intake 490 ml Output 1200 ml Net -710 ml Hematology: Lab Results Component Value Date HGB 8.1 06/11/2018 HCT 24.7 06/11/2018 PLTCT 114 06/11/2018 WBC 4.0 06/11/2018 NEUT 62 06/07/2018 ANC 2.20 06/07/2018 ALC 0.70 06/07/2018 CASI 11 06/07/2018 AMC 0.40 06/07/2018 ABC 0.00 06/07/2018 MCV 96.7 06/11/2018 MCHC 32.7 06/11/2018 MPV 8.4 06/11/2018 RDW 16.7 06/11/2018 , Coagulation: Lab Results Component Value Date PTT 30.2 04/08/2018 INR 1.2 06/06/2018 and General Chemistry: Lab Results Component Value Date NA 137 06/11/2018 K 4.7 06/11/2018 CL 97 06/11/2018 GAP 4 06/11/2018 BUN 31 06/11/2018 CR 1.34 06/11/2018 GLU 118 06/11/2018 CA 9.4 06/11/2018 ALBUMIN 2.6 06/07/2018 LACTIC 0.8 02/17/2018 OBSCA 1.17 02/17/2018 MG 2.0 06/11/2018 TOTBILI 0.4 06/07/2018 Joel Jerome MD ER MAKER * Daniela Beltre, RD - 06/03/2018 4:02 PM MARKER MAKER Associated Order(s): CONSULT DIETITIAN CLINICAL NUTRITION Clinical Nutrition Assessment Summary NAME:Deborah Fields :1955 AGE: 62 y.o. ADMISSION DATE: 06/01/2018 DAYS ADMITTED: LOS: 2 days Nutrition Assessment of Patient: BMI Categories Adult: Obesity Class III: 40 and over (47.23 current wt) Unintentional Weight Loss: none (remains above usual body weight range) Malnutrition Assessment: Does not meet criteria Estimated Calorie Needs: 1450-1580kcal (22-24kcal/kg desired wt) Estimated Protein Needs: 99-112g (1.5-1.7g/kg desired wt) Oral Diet Order: NPO Current EN Order: Isosource 1.5 @ 40ml/hr continuous via corpak. Provides 1080kcal, 49g protein, 550ml free H2O (assuming total daily holds of 6hrs for meds & not currently on volume-based protocol). Comments: 62 yo F with hx including CAD s/p CABG 02/2018,combined HF,afibs/p L atrial appendage ligationnot onAC d/trecurrent GIBs c/b transfusion- dependent anemia,HTN, DM, CKD, hypothyroidism, morbid obesity&liver diseasec/bportalHTN, EV,GAVE&ascites.She was transferred from [facility] on 06/01 after presenting there on 05/30 for syncope/fatigue. Admit c/b AMS/respiratory failure requiring intubation, afib w/ RVR & septic shock from HCAP + UTI.Has since been extubated (06/02 AM), shock resolved. Diuresis resumed. COMMERCIAL INSURANCE UNDERWRITER following-has not yet been cleared for PO diet. EN orders placed 06/02- Isosource 1.5 started ~18:00 (20ml/hr), reaching ordered goal rate 40ml/hr by ~04:00. Infusing at goal at time of visit this afternoon. Patient awake & c/o thirst. Reports her appetite has generally been low and poor for weeks prior to acute events. Claims to only have had jello most days and reports usual routine of chewing on ice throughout the day (2/2 VICKY). Admits to not following any diet guidelines or self-monitoring fluid intakes, etc. Also admits to not weighing self at home 2/2 frequent doctor visits/ weights there. Denies any GI distress though does tend toward constipation; + BMs currently with bowel meds & on EN/abx. Endorses usual weight range closer to 240-250# (admit wt listed at 291# and most recently 275# with diuresis). Is on 3L NC. No pressure injuries noted. Of note, in speaking with RN, patient was found with potato chips and soda & patient admitted to eating; RN note with details. Will likely benefit from ongoing diet rationale/education for reinforcement once PO nutrition resumes. Recommendation: Agree to continue Isosource 1.5. To better meet estimated needs, modify goal rate to 35ml/hr. Add volume-based EN protocol: 24hr volume goal: 840ml, 4hr goal 140ml. Add Prosource 3 packs/day. Will provide 1440kcal, 102g protein, 642ml free H2O. H2O boluses if team desires. If cleared for PO, goal diet order: Cardiac, Consistent Carbohydrate (60g/ meal), textures per COMMERCIAL INSURANCE UNDERWRITER & fluid restriction within diet order (2L or volume per team). Intervention / Plan: Will order MVI with minerals to better meet micronutrient needs Will monitor EN vs PO intakes for tolerance, adequacy, appropriateness & will adjust nutrition recs again prn Nutrition Diagnosis: Swallowing difficulty Etiology: recent intubation Signs & Symptoms: COMMERCIAL INSURANCE UNDERWRITER eval & need for EN support Goals: EN tolerated and meeting >85% of nutritional needs Time Frame: Within 48 Hours Transition from enteral to oral Time Frame: Within [address], LD, CNSC *[id number] ER MAKER in this encounter Miscellaneous Notes * Case Mgmt DC Plan - Rosy Rodriguez - 06/18/2018 9:17 AM MARKER MAKER MACHINE HOSTLER Note: Printed and placed transfer packet in the pt's wall unit per request from [facility] Elmira Rodriguez Magazine Writer For additional assistance please contact [facility] Elmira Rock *[phone] ER MAKER * Case Mgmt DC Plan - Elmira Rock - 06/18/2018 8:54 AM MARKER MAKER Case Management Progress NoteNAME:Deborah Fields :1955 AGE: 62 y.o. ADMISSION DATE: 06/01/2018 DAYS ADMITTED: LOS: 17 days Todays Date: 06/18/2018 Plan: D/c to [facility] today at 10:30am via transport PT/OT recommending inpatient setting Rehab Consult- recommendations: Post-acute care rehabilitation needs:acute inpatient rehabilitation Given the patient's high medical complexity and co morbidities including, but not limited todebility in the setting of prolonged hospitalization and complex medical illness including acute hypoxic/hypercapnic respiratory failure requiring mechanical ventilation in setting of HCAP, severe sepsis w/ shock, requiring transient pressor support, underlying Hx of liver disease, chronic anemia, anasarca requiring aggressive diuresis,and in conjunction with significant functional goals with PT and OT, the patient will require daily physician oversight and intensive rehab therapies at an acute inpatient rehabilitation after acute inpatient hospitalization. Our service will continue to monitor functional progress with current barriers to acute inpatient rehab listed below. The patient would prefer to discharge to a facility closer to her home if possible. She reports she is very motivated to participate in intensive rehab therapies. Interventions ? Support ? Info or Referral ? Discharge Planning VIJAY sent message to team confirming pt continues to be stable for d/c today. VIJAY updated that orders need to be entered 9:00, printed, signed and placed in wall unit VIJAY called d/c RN and reminded of 10:30 d/c today VIJAY faxed d.c orders to facility ? Medication Needs ? Financial ? Legal ? Other Disposition ? Expected Discharge Date Expected Discharge Date: 06/18/18 Expected Discharge Time: 1030 ? Transportation Does the patient need discharge transport arranged?: No Transportation Name, Phone and Availability #1: Bill - Spouse [phone] Does the patient use Medicaid Transportation?: No ? Next Level of Care (Acute Psych discharges only) ? Discharge Disposition Durable Medical Equipment No service has been selected for the patient. Destination - Selection Complete Service Provider Request Status Selected Services Address Phone Number Fax Number [facility] Selected Inpatient Rehabilitation [address] [place] [address] [phone] Home Care No service has been selected for the patient. Dialysis/Infusion No service has been selected for the patient. ER MAKER * Case Mgmt DC Plan - Rosa Jin, PT - 06/17/2018 9:39 AM MARKER MAKER Per Elmira Gregory (VIJAY) patient is ready for discharge today. Patient would prefer to stay at a facility closer to home, however due to [place] Medicaid pending status patient may have limited resources. If patient is willing to consider [facility], will continue to review for potential admission. Upon current chart review, patient demonstrates goals to warrant an inpatient rehab stay. 1135 - Notified Elmira Gregory (VIJAY) that rehab able to admit today. Transportation will be scheduled for 1245 via wheelchair van with [facility] [employer]. Elmira Gregory to notify patient's primary RN of discharge time, rehab bed assignment of [phone] and unit phone# for report (). Please leave in any functioning IV access for transition to 's IP rehab unit. 1150 - Elmira Gregory (VIJAY) updated that patient does have Medicare as primary insurance coverage. Due to this new knowledge, patient would prefer to stay at a facility nearer to her home. Please reach out to [facility] admissions for any further updates. Rosa Jin, PT, DPT Office ext [phone] Voalte # [phone] ER MAKER * Case Mgmt DC Plan - Elmira Rock - 06/17/2018 9:21 AM MARKER MAKER Case Management Progress NoteNAME:Deborah Fields :1955 AGE: 62 y.o. ADMISSION DATE: 06/01/2018 DAYS ADMITTED: LOS: 16 days Todays Date: 06/17/2018 Plan: D/c to [facility] Thursday at 10:30am via transport PT/OT recommending inpatient setting Rehab Consult- recommendations: Post-acute care rehabilitation needs:acute inpatient rehabilitation Given the patient's high medical complexity and co morbidities including, but not limited todebility in the setting of prolonged hospitalization and complex medical illness including acute hypoxic/hypercapnic respiratory failure requiring mechanical ventilation in setting of HCAP, severe sepsis w/ shock, requiring transient pressor support, underlying Hx of liver disease, chronic anemia, anasarca requiring aggressive diuresis,and in conjunction with significant functional goals with PT and OT, the patient will require daily physician oversight and intensive rehab therapies at an acute inpatient rehabilitation after acute inpatient hospitalization. Our service will continue to monitor functional progress with current barriers to acute inpatient rehab listed below. The patient would prefer to discharge to a facility closer to her home if possible. She reports she is very motivated to participate in intensive rehab therapies. Interventions ? Support ? Info or Referral ? Discharge Planning SW sent message to [facility] admission updating that this SW is covering service today to f/u on acceptance to facility with [place] Medicaid pending VIJAY received message from [facility] admissions stating they will review pt this morning and will have to talk to director as well. [facility] admissions will f/u with SW when decision is made SW received message from [facility] that they can accept pt SW met with pt at bedside to discuss d.c d/c planning. Pt updated SW that she now has Medicare A and B as of 06/15/18. Sw asked for copy of Medicare card as this will open options for placement. Pt's stated that card is in the car and he will go and get it. VIJAY updated on acceptance at [facility]. Pt stated that she would like to get closer to home now that she has Medicare coverage. VIJAY provided [facility] and Medicare SNF list to pt VIJAY sent referral to [facility] in [place] VIJAY received Medicare card and made copy SW called Attender Data rep and updated on Medicare coverage and provided Medicare Number [id number] to update system SW called [facility] and confirmed they are receiving referral currently. SW provided Medicare number to admissions SW received call from [facility] admissions stating they can accept pt tomorrow. SW updated that will provide transport and discussed that pt will need to d/c by 10:30. Doc to Doc required today with Dr. Morrell VIJAY sent message to team updating on d/c tomorrow at 10:30 and requested orders be entered by 9:00. VIJAY updated that doc to doc will need to be completed today and provided above contact info VIJAY called pt in room and updated on acceptance and d/c for 10:30 tomorrow morning via transport VIJAY called d.c RN and updated on 10:30 d.c tomorrow via transport VIJAY tasked MACHINE HOSTLER to complete transfer packet and place in wall unit for Thursday d /c ? Medication Needs ? Financial ? Legal ? Other Disposition ? Expected Discharge Date Expected Discharge Date: 06/18/18 Expected Discharge Time: 1030 ? Transportation Does the patient need discharge transport arranged?: No Transportation Name, Phone and Availability #1: Bill - Spouse [phone] Does the patient use Medicaid Transportation?: No ? Next Level of Care (Acute Psych discharges only) ? Discharge Disposition Durable Medical Equipment No service has been selected for the patient. Destination - Selection Complete Service Provider Request Status Selected Services Address Phone Number Fax Number [facility] Selected Inpatient Rehabilitation [address] [facility] [address] [phone] Home Care No service has been selected for the patient. Dialysis/Infusion No service has been selected for the patient. ER MAKER * Care Plan - ToshaConcepción RN - 06/16/2018 12:27 PM MARKER MAKER Problem: Discharge Planning Goal: Participation in plan of care Outcome: Goal Ongoing Patient was involved in POC and DC planning. Patient was encouraged to ask questions. Problem: Mobility/Activity Intolerance Goal: Maximize functional ADL's and mobility outcomes Outcome: Goal Ongoing Pt up with 1-2 assist and walker. Problem: Falls, High Risk of Goal: Absence of falls-Adult Patient Outcome: Goal Ongoing Fall bundle in place, call light in reach. Problem: Respiratory Impairment (Non-Ventilated Patient) Goal: Effective gas exchange Outcome: Goal Ongoing Pt on 2L NC. ER MAKER * Case Mgmt DC Plan - Elmira Rock - 06/16/2018 10:16 AM MARKER MAKER Case Management Progress NoteNAME:Deborah Fields :1955 AGE: 62 y.o. ADMISSION DATE: 06/01/2018 DAYS ADMITTED: LOS: 15 days Todays Date: 06/16/2018 Plan: D/c plna ongoing. Pt is currently [place] Medicaid pending PT/OT recommending inpatient setting Rehab Consult- recommendations: Post-acute care rehabilitation needs: acute inpatient rehabilitation Given the patient's high medical complexity and co morbidities including, but not limited to debility in the setting of prolonged hospitalization and complex medical illness including acute hypoxic/hypercapnic respiratory failure requiring mechanical ventilation in setting of HCAP, severe sepsis w/ shock, requiring transient pressor support, underlying Hx of liver disease, chronic anemia, anasarca requiring aggressive diuresis, and in conjunction with significant functional goals with PT and OT, the patient will require daily physician oversight and intensive rehab therapies at an acute inpatient rehabilitation after acute inpatient hospitalization. Our service will continue to monitor functional progress with current barriers to acute inpatient rehab listed below. The patient would prefer to discharge to a facility closer to her home if possible. She reports she is very motivated to participate in intensive rehab therapies. Interventions ? Support ? Info or Referral ? Discharge Planning Covering called [facility] and left to discuss acceptance of pt with [place] Medicaid pending SW received message form [facility] asking what pt's support system will be after d.c from [facility] as well as d/c date VIJAY sent message to admissions updating that is covering service, but per assessment note pt's and daughter and support and pt able to to d/c when accepted to facility with Medicaid pending status Sw received message from [facility] admissions stating they will place pt on review list for tomorrow morning and f/u with primary SW ? Medication Needs ? Financial ? Legal ? Other Disposition ? Expected Discharge Date Expected Discharge Date: 06/16/18 ? Transportation Does the patient need discharge transport arranged?: No Transportation Name, Phone and Availability #1: Bill - Spouse [phone] Does the patient use Medicaid Transportation?: No ? Next Level of Care (Acute Psych discharges only) ? Discharge Disposition Durable Medical Equipment No service has been selected for the patient. Destination No service has been selected for the patient. Home Care No service has been selected for the patient. Dialysis/Infusion No service has been selected for the patient. ER MAKER * Case Mgmt DC Plan - Helen Delgado - 06/11/2018 2:16 PM MARKER MAKER Case Management Progress NoteNAME:Deborah Fields :1955 AGE: 62 y.o. ADMISSION DATE: 06/01/2018 DAYS ADMITTED: LOS: 10 days Todays Date: 06/11/2018 Plan Discharge when medically stable and safe plan established Interventions Staffed pt in huddle: pt still extremely weak and not safe to go home. Pt is [place] medicaid pending and needs rehab before home. Contacted [facility] to see if they would consider pt pending but they do not take pt' s [place] medicaid pending. Requested team to place rehab consult. Will continue to f/u and assist as needed. ? Support ? Info or Referral ? Discharge Planning ? Medication Needs ? Financial ? Legal ? Other Disposition ? Expected Discharge Date Expected Discharge Date: 06/16/18 ? Transportation Does the patient need discharge transport arranged?: No Transportation Name, Phone and Availability #1: Bill - Spouse [phone] Does the patient use Medicaid Transportation?: No ? Next Level of Care (Acute Psych discharges only) ? Discharge Disposition Helen Delgado LMSW *3548 Durable Medical Equipment No service has been selected for the patient. Destination No service has been selected for the patient. Home Care No service has been selected for the patient. Dialysis/Infusion No service has been selected for the patient. ER MAKER * Transfer - Ursula Bowen, SERVICE MECHANIC - 06/05/2018 11:26 AM MARKER MAKER In-Hospital Transfer Note Admission Diagnosis: Septic Shock, HCAP, UTI, Acute Encephalopathy, Acute Respiratory Failure Admission Date: 06/01/2018 Active Hospital Problem List: Active Problems: Type 2 diabetes mellitus with circulatory disorder, without long-term 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 (HCC) PAF (paroxysmal atrial fibrillation) (HCC) Atrial fibrillation with rapid ventricular response (HCC) Chronic gastrointestinal bleeding HLD (hyperlipidemia) Essential hypertension Acute on chronic diastolic heart failure due to coronary artery disease (HCC) Sepsis (HCC) Morbid obesity (HCC) Acute hypoxemic respiratory failure (HCC) Hospital Course: Deborah Escobedo a 62 y/ofemalewith PMH significant for CAD s/p CABG 02/2018,combined HF,afibs/p L atrial appendage ligationnot onAC d/trecurrent GIBs c/b transfusion-dependent anemia,HTN, DM, CKD, hypothyroidism, morbid obesity&liver diseasec/bportalHTN, congestive colopathy, EV,GAVE&ascites.She was transferred from [facility] on 06/01 after presenting there on 05/30 for syncope/fatigue. Admit c/ b AMS/respiratory failure requiring intubation, afib w/ RVR & septic shock from HCAP + UTI.On arrival, NE was able to be stopped & she was extubated 06/02 AM. W/ hx of HF & no longer in shock have cautiously resumed diuresis. Afib has been rate controlled here, dc'd amiodarone & resumed metoprolol/cardizem at lower than INSPECTOR FABRIC doses. Overnight 06/04-06/05, pt became bradydardic and hypotensive -- given atropine x 2, IVF, and briefly on dopamine drip. Have dc'd cardizem from AUG. Antbx narrowed to ceftriaxone and doxycycline for PNA & UTI; will complete 06/06. Significant Medication Information (to include antibiotic duration/indication, anticoagulation and steroids, etc.): - have continued INSPECTOR FABRIC lasix 40 mg daily; gave extra dose today 05/06 - continued INSPECTOR FABRIC metoprolol, but at reduced dose of 50 mg PO BID - dc'd cardizem w/ bradycardia overnight - on NPH w/ low dose correction factor - ceftriaxone and doxycycline x 7 days (through 06/06) Procedures With Dates: none Consults: none Follow-Up Items: - COMMERCIAL INSURANCE UNDERWRITER recs - hepatology f/u Activity/Weight bearing status: PT/OT; stood at bedside w/ PT on 06/04 Nutrition: has dysphagia -- COMMERCIAL INSURANCE UNDERWRITER following; pt demanded corpak be removed, despite counseling on risk of aspiration (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 ADMISSION DATE: 06/01/2018 DAYS ADMITTED: LOS: 1 day Todays Date: 06/02/2018 Source of Information: This NCM introduced self and explained role of CM. Patient resting in bed, Spouse and Daughter at bedside and able to answer all questions. Plan Plan: Case Management Assessment, Assist PRN with SW/NCM Services, Discharge Planning for Home Anticipated Infectious work up Wean from Vent as tolerated Consult PT/OT DC planning on going Continue ICU care Interventions ? Support Patient lives at home with Spouse and required "very little" assistance prior to admission. Patient's Daughter, Inocencia , lives close and is support for family. Patient gets her meds and care at [facility] [phone]. She follows with Dr. Carla Wilson. Patient gets her INR drawn at [facility] [phone] F [phone]. ? Info or Referral ? Discharge Planning ? Medication Needs ? Financial ? Legal ? Other Disposition ? Expected Discharge Date Expected Discharge Date: 06/07/18 ? Transportation Does the patient need discharge transport arranged?: No Transportation Name, Phone and Availability #1: Bill - Spouse [phone] Does the patient use Medicaid Transportation?: No ? Next Level of Care (Acute Psych discharges only) ? Discharge Disposition Durable Medical Equipment No service has been selected for the patient. [facility] Destination No service has been selected for the patient. [facility] Home Care No service has been selected for the patient. [facility] Dialysis/Infusion No service has been selected for the patient. Patient Address/Phone [address] [facility] [phone] (home) Emergency Contact Extended Emergency Contact Information Primary Emergency Contact: Jose Fields [facility] Mobile Relation: Spouse Secondary Emergency Contact: Inocencia Matson [facility] Mobile Relation: Daughter Healthcare Directive Healthcare Directive: No, patient does not have a healthcare directive Would patient like to fill out a (a new) Healthcare Directive?: Yes, referral to Social Work Transportation Does the patient need discharge transport arranged?: No Transportation Name, Phone and Availability #1: Bill - Spouse [phone] Does the patient use Medicaid Transportation?: No Expected Discharge Date Expected Discharge Date: 06/07/18 Living Situation Prior to Admission ? Living Arrangements Type of Residence: Home, independent Living Arrangements: Spouse/significant other Bathroom Shower / Tub: Walk-in Shower How many levels in the residence?: 1 Can patient live on one level if needed?: N/A Does residence have entry and/or side stairs?: No(ramp) Assistance needed prior to admit or anticipated on discharge: No Who provides assistance or could if needed?: Spouse and Daughter Are they in good health?: Yes Can support system provide 24/ care if needed?: Yes ? Level of Function Prior level of function: Independent ? Cognitive Abilities Cognitive Abilities: Alert and Oriented, Participates in decision making Financial Resources ? Coverage Primary Insurance: Medicaid Pending Additional Coverage: ([facility] [phone] ) ? Source of Income Source Of Income: SSDI ? Financial Assistance Needed? Psychosocial Needs ? Mental Health Mental Health History: No ? Substance Use History ? Other Current/Previous Services ? PCP Carla Wilson, , ? [facility] - [place], [place] - [address] [facility] [address] [facility] ([facility]) Timothy Lee [place] [address] [facility] [id number] ? Durable Medical Equipment Durable Medical Equipment at home: Roller Walker, Oxygen([facility] [place] [phone]) ? Home Health Receiving home health: No ? Hemodialysis or Peritoneal Dialysis Undergoing hemodialysis or peritoneal dialysis: No ? Tube/Enteral Feeds Receive tube/enteral feeds: No ? Infusion Receive infusions: No ? Private Duty Private duty help used: No ? Home and Community Based Services Home and community based services: No ? Keanu Cheatham: N/A ? Hospice Hospice: No ? Outpatient Therapy PT: No OT: No COMMERCIAL INSURANCE UNDERWRITER: No ? Residential Facility/Detention SNF: No NH: No ? Inpatient Rehab [facility]: No ? Long-Term Acute Care Hospital LTACH: No ? Acute Hospital Stay Acute Hospital Stay: In the past Was patient's stay within the last 30 days?: No When did patient receive care?: 03/25/18 Name of hospital: JONATHAN Torres RN, BSN Nurse Political Consultant [phone] ER MAKER * Advanced Care Planning/Resuscitation Status - Luis Miguel Egan, - 2017 7:11 PM MARKER MAKER Advance Care Planning/Resuscitation Status Conversation Individuals present for advance care planning conversation: resident/fellow physician Pertinent details of conversation (including direct quotes from patient or surrogate): Patient intubated, unable to discuss GoC. On review of preview 2 admissions in past 4 months patient was very clear that she wanted all interventions, stating "I'm too young not to try everything". On separate occasion where she was incapacitated family was very clear that she wanted all aggressive interventions. Patient code status full, will attempt to contact family and discuss further once patient's mental status improves Outcome of conversation: Full Code Documents completed as a result of this conversation: None Other documents present, which outline patient/surrogate wishes: None ER MAKER in this encounter Plan of Treatment Order Schedule Name Priority Associated Diagnoses ONE TIME for 1 Occurrences starting 06/02/2018 until 06/02/2018, 1 completed GENERAL RAD CHEST EXTERNAL IMAGING Routine Diagnosis unknown ONE TIME for 1 Occurrences starting 06/02/2018 until 06/02/2018, 1 completed GENERAL RAD CHEST EXTERNAL IMAGING Routine Diagnosis unknown ONE TIME for 1 Occurrences starting 06/02/2018 until 06/02/2018, 1 completed GENERAL RAD CHEST EXTERNAL IMAGING Routine Diagnosis unknown ONE TIME for 1 Occurrences starting 06/02/2018 until 06/02/2018, [address] HEAD EXTERNAL IMAGING Routine Diagnosis unknown ONE TIME for 1 Occurrences starting 06/02/2018 until 06/02/2018, 1 completed GENERAL RAD CHEST EXTERNAL IMAGING Routine Diagnosis unknown ONE TIME for 1 Occurrences starting 06/02/2018 until 06/02/2018, [address] HEAD EXTERNAL IMAGING Routine Diagnosis unknown ONE TIME for 1 Occurrences starting 06/02/2018 until 06/02/2018, 1 completed GENERAL RAD CHEST EXTERNAL IMAGING Routine Diagnosis unknown ONE TIME for 1 Occurrences starting 06/02/2018 until 06/02/2018, 1 completed GENERAL RAD CHEST EXTERNAL IMAGING Routine Diagnosis unknown ONE TIME for 1 Occurrences starting 06/02/2018 until 06/02/2018, [address] CHEST/ABD/PEL EXTERNAL IMAGING Routine Diagnosis unknown ONE TIME for 1 Occurrences starting 06/02/2018 until 06/02/2018, 1 completed GENERAL RAD PELVIS EXTERNAL IMAGING Routine Diagnosis unknown ONE TIME for 1 Occurrences starting 06/02/2018 until 06/02/2018, 1 completed US ABDOMEN EXTERNAL IMAGING Routine Diagnosis unknown ONE TIME for 1 Occurrences starting 06/02/2018 until 06/02/2018, [address] L-SPINE EXTERNAL IMAGING Routine Diagnosis unknown ONE TIME for 1 Occurrences starting 06/02/2018 until 06/02/2018, [address] HEAD EXTERNAL IMAGING Routine Diagnosis unknown ONE TIME for 1 Occurrences starting 06/02/2018 until 06/02/2018, 1 completed GENERAL RAD CHEST EXTERNAL IMAGING Routine Diagnosis unknown as of this encounter Procedures Comments Procedure Name Priority Date/Time Associated Diagnosis POC GLUCOSE 06/18/2018 7:26 AM MARKER MAKER MAGNESIUM Routine 06/18/2018 6:08 AM MARKER MAKER BASIC METABOLIC PANEL Routine 06/18/2018 6:08 AM MARKER MAKER POC GLUCOSE 06/18/2018 4:17 AM MARKER MAKER POC GLUCOSE 06/18/2018 3:09 AM MARKER MAKER POC GLUCOSE 06/17/2018 8:24 PM MARKER MAKER POC GLUCOSE 06/17/2018 6:14 PM MARKER MAKER POC GLUCOSE 06/17/2018 1:08 PM MARKER MAKER CBC Routine 06/17/2018 10:03 AM MARKER MAKER POC GLUCOSE 06/17/2018 7:39 AM MARKER MAKER CBC Routine 06/17/2018 5:48 AM MARKER MAKER MAGNESIUM Routine 06/17/2018 5:48 AM MARKER MAKER BASIC METABOLIC PANEL Routine 06/17/2018 5:48 AM MARKER MAKER POC GLUCOSE 06/17/2018 3:19 AM MARKER MAKER POC GLUCOSE 06/16/2018 10:17 PM MARKER MAKER POC GLUCOSE 06/16/2018 5:44 PM MARKER MAKER POC GLUCOSE 06/16/2018 2:46 PM MARKER MAKER POC GLUCOSE 06/16/2018 8:55 AM MARKER MAKER CBC Routine 06/16/2018 6:39 AM MARKER MAKER MAGNESIUM Routine 06/16/2018 6:39 AM MARKER MAKER BASIC METABOLIC PANEL Routine 06/16/2018 6:39 AM MARKER MAKER POC GLUCOSE 06/15/2018 8:28 PM MARKER MAKER POC GLUCOSE 06/15/2018 6:03 PM MARKER MAKER POC GLUCOSE 06/15/2018 11:59 AM MARKER MAKER POC GLUCOSE 06/15/2018 8:25 AM MARKER MAKER CBC Routine 06/15/2018 6:05 AM MARKER MAKER MAGNESIUM Routine 06/15/2018 6:05 AM MARKER MAKER BASIC METABOLIC PANEL Routine 06/15/2018 6:05 AM MARKER MAKER POC GLUCOSE 06/15/2018 3:31 AM MARKER MAKER POC GLUCOSE 06/14/2018 9:42 PM MARKER MAKER POC GLUCOSE 06/14/2018 8:11 PM MARKER MAKER POC GLUCOSE 06/14/2018 5:50 PM MARKER MAKER POC GLUCOSE 06/14/2018 2:08 PM MARKER MAKER CHEM 7 ADD ON Add on 06/14/2018 7:49 AM MARKER MAKER CBC Routine 06/14/2018 7:49 AM MARKER MAKER MAGNESIUM Routine 06/14/2018 7:49 AM MARKER MAKER BASIC METABOLIC PANEL Routine 06/14/2018 7:49 AM MARKER MAKER POC GLUCOSE 06/14/2018 7:48 AM MARKER MAKER POC GLUCOSE 06/14/2018 3:33 AM MARKER MAKER POC GLUCOSE 06/13/2018 8:21 PM MARKER MAKER ECG 12-LEAD STAT 06/13/2018 6:54 PM MARKER MAKER POC GLUCOSE 06/13/2018 4:35 PM MARKER MAKER POC GLUCOSE 06/13/2018 11:42 AM MARKER MAKER CBC Routine 06/13/2018 11:40 AM MARKER MAKER MAGNESIUM Routine 06/13/2018 11:40 AM MARKER MAKER BASIC METABOLIC PANEL Routine 06/13/2018 11:40 AM MARKER MAKER POC GLUCOSE 06/13/2018 8:48 AM MARKER MAKER POC GLUCOSE 06/13/2018 3:48 AM MARKER MAKER POC GLUCOSE 06/12/2018 9:13 PM MARKER MAKER POC GLUCOSE 06/12/2018 6:21 PM MARKER MAKER POC GLUCOSE 06/12/2018 11:44 AM MARKER MAKER POC GLUCOSE 06/12/2018 8:25 AM MARKER MAKER CBC Routine 06/12/2018 6:52 AM MARKER MAKER MAGNESIUM Routine 06/12/2018 6:52 AM MARKER MAKER BASIC METABOLIC PANEL Routine 06/12/2018 6:52 AM MARKER MAKER POC GLUCOSE 06/12/2018 3:36 AM MARKER MAKER POC GLUCOSE 06/11/2018 9:46 PM MARKER MAKER POC GLUCOSE 06/11/2018 5:43 PM MARKER MAKER POC GLUCOSE 06/11/2018 11:48 AM MARKER MAKER POC GLUCOSE 06/11/2018 9:15 AM MARKER MAKER CBC Routine 06/11/2018 5:17 AM MARKER MAKER MAGNESIUM Routine 06/11/2018 5:17 AM MARKER MAKER BASIC METABOLIC PANEL Routine 06/11/2018 5:17 AM MARKER MAKER TROPONIN-I Routine 06/10/2018 10:20 PM MARKER MAKER ECG 12-LEAD Routine 06/10/2018 10:05 PM MARKER MAKER POC GLUCOSE 06/10/2018 8:40 PM MARKER MAKER POC GLUCOSE 06/10/2018 5:19 PM MARKER MAKER POC GLUCOSE 06/10/2018 11:58 AM MARKER MAKER POC GLUCOSE 06/10/2018 7:31 AM MARKER MAKER CBC Routine 06/10/2018 6:04 AM MARKER MAKER MAGNESIUM Routine 06/10/2018 6:04 AM MARKER MAKER BASIC METABOLIC PANEL Routine 06/10/2018 6:04 AM MARKER MAKER POC GLUCOSE 06/09/2018 9:57 PM MARKER MAKER POC GLUCOSE 06/09/2018 5:30 PM MARKER MAKER POC GLUCOSE 06/09/2018 1:25 PM MARKER MAKER POC GLUCOSE 06/09/2018 8:56 AM MARKER MAKER CBC Routine 06/09/2018 8:04 AM MARKER MAKER MAGNESIUM Routine 06/09/2018 8:00 AM MARKER MAKER BASIC METABOLIC PANEL Add on 06/09/2018 8:00 AM MARKER MAKER POC GLUCOSE 06/08/2018 9:14 PM MARKER MAKER POC GLUCOSE 06/08/2018 6:17 PM MARKER MAKER POC GLUCOSE 06/08/2018 12:40 PM MARKER MAKER POC GLUCOSE 06/08/2018 8:08 AM MARKER MAKER ECG 12-LEAD STAT 06/08/2018 4:59 AM MARKER MAKER TROPONIN-I Add on 06/08/2018 4:45 AM MARKER MAKER HEMOGLOBIN Routine 06/08/2018 4:45 AM MARKER MAKER BASIC METABOLIC PANEL Routine 06/08/2018 4:45 AM MARKER MAKER POC GLUCOSE 06/08/2018 3:15 AM MARKER MAKER POC GLUCOSE 06/07/2018 8:45 PM MARKER MAKER POC GLUCOSE 06/07/2018 5:52 PM MARKER MAKER TRANSFUSE RBC'S Routine 06/07/2018 NON-BLEEDING PT 5:33 PM MARKER MAKER POC GLUCOSE 06/07/2018 2:04 PM MARKER MAKER TYPE & CROSSMATCH Routine 06/07/2018 11:38 AM MARKER MAKER CONSULT IV THERAPY TEAM Routine 06/07/2018 8:22 AM MARKER MAKER POC GLUCOSE 06/07/2018 7:52 AM MARKER MAKER CBC AND DIFF STAT 06/07/2018 3:24 AM MARKER MAKER PHOSPHORUS STAT 06/07/2018 3:24 AM MARKER MAKER MAGNESIUM STAT 06/07/2018 3:24 AM MARKER MAKER COMPREHENSIVE METABOLIC STAT 06/07/2018 PANEL 3:24 AM MARKER MAKER POC GLUCOSE 06/07/2018 3:10 AM MARKER MAKER POC GLUCOSE 06/06/2018 9:11 PM MARKER MAKER MAGNESIUM Routine 06/06/2018 5:00 PM MARKER MAKER BASIC METABOLIC PANEL Routine 06/06/2018 5:00 PM MARKER MAKER POC GLUCOSE 06/06/2018 4:34 PM MARKER MAKER CONSULT IV THERAPY TEAM Routine 06/06/2018 12:33 PM MARKER MAKER POC GLUCOSE 06/06/2018 7:44 AM MARKER MAKER PROTIME INR (PT) Routine 06/06/2018 6:20 AM MARKER MAKER CBC AND DIFF STAT 06/06/2018 6:20 AM MARKER MAKER PHOSPHORUS STAT 06/06/2018 6:20 AM MARKER MAKER MAGNESIUM STAT 06/06/2018 6:20 AM MARKER MAKER COMPREHENSIVE METABOLIC STAT 06/06/2018 PANEL 6:20 AM MARKER MAKER POC GLUCOSE 06/06/2018 3:15 AM MARKER MAKER POC GLUCOSE 06/05/2018 9:13 PM MARKER MAKER POC GLUCOSE 06/05/2018 6:31 PM MARKER MAKER POC GLUCOSE 06/05/2018 1:13 PM MARKER MAKER POC GLUCOSE 06/05/2018 7:51 AM MARKER MAKER PROTIME INR (PT) Routine 06/05/2018 3:43 AM MARKER MAKER CBC AND DIFF STAT 06/05/2018 3:43 AM MARKER MAKER PHOSPHORUS STAT 06/05/2018 3:43 AM MARKER MAKER MAGNESIUM STAT 06/05/2018 3:43 AM MARKER MAKER COMPREHENSIVE METABOLIC STAT 06/05/2018 PANEL 3:43 AM MARKER MAKER BLOOD GASES, CENTRAL Routine 06/04/2018 VENOUS 11:26 PM MARKER MAKER POC GLUCOSE 06/04/2018 11:19 PM MARKER MAKER POC GLUCOSE 06/04/2018 9:49 PM MARKER MAKER POC GLUCOSE 06/04/2018 4:37 PM MARKER MAKER CONSULT IV THERAPY TEAM Routine 06/04/2018 11:17 AM MARKER MAKER VANCOMYCIN TROUGH 06/04/2018 11:15 AM MARKER MAKER POC GLUCOSE 06/04/2018 11:03 AM MARKER MAKER POC GLUCOSE 06/04/2018 6:38 AM MARKER MAKER PROTIME INR (PT) Routine 06/04/2018 3:41 AM MARKER MAKER CBC AND DIFF STAT 06/04/2018 3:41 AM MARKER MAKER PHOSPHORUS STAT 06/04/2018 3:41 AM MARKER MAKER MAGNESIUM STAT 06/04/2018 3:41 AM MARKER MAKER COMPREHENSIVE METABOLIC STAT 06/04/2018 PANEL 3:41 AM MARKER MAKER POC GLUCOSE 06/03/2018 8:58 PM MARKER MAKER POC GLUCOSE 06/03/2018 6:22 PM MARKER MAKER POC GLUCOSE 06/03/2018 11:53 AM MARKER MAKER ECG 12-LEAD Routine 06/03/2018 9:28 AM MARKER MAKER POC GLUCOSE 06/03/2018 8:50 AM MARKER MAKER PROTIME INR (PT) Routine 06/03/2018 3:48 AM MARKER MAKER CBC AND DIFF STAT 06/03/2018 3:48 AM MARKER MAKER PHOSPHORUS STAT 06/03/2018 3:48 AM MARKER MAKER MAGNESIUM STAT 06/03/2018 3:48 AM MARKER MAKER VANCOMYCIN TIMED LEVEL Routine 06/03/2018 3:48 AM MARKER MAKER COMPREHENSIVE METABOLIC STAT 06/03/2018 PANEL 3:48 AM MARKER MAKER POC GLUCOSE 06/02/2018 9:37 PM MARKER MAKER POC GLUCOSE 06/02/2018 5:53 PM MARKER MAKER ABDOMEN AP ONLY Routine 06/02/2018 5:17 PM MARKER MAKER BLOOD GASES, ARTERIAL Routine 06/02/2018 2:57 PM MARKER MAKER CULTURE-URINE STAT 06/02/2018 W/SENSITIVITY 2:23 PM MARKER MAKER AMMONIA STAT 06/02/2018 2:20 PM MARKER MAKER POC GLUCOSE 06/02/2018 12:48 PM MARKER MAKER 2-D + DOPPLER SUNG 06/02/2018 ECHOCARDIOGRAM 9:41 AM MARKER MAKER POC GLUCOSE 06/02/2018 8:02 AM MARKER MAKER POC GLUCOSE 06/02/2018 3:48 AM MARKER MAKER TROPONIN-I Add on 06/02/2018 3:40 AM MARKER MAKER PROTIME INR (PT) Routine 06/02/2018 3:40 AM MARKER MAKER CBC AND DIFF STAT 06/02/2018 3:40 AM MARKER MAKER PHOSPHORUS STAT 06/02/2018 3:40 AM MARKER MAKER MAGNESIUM STAT 06/02/2018 3:40 AM MARKER MAKER BLOOD GASES, ARTERIAL STAT 06/02/2018 3:40 AM MARKER MAKER COMPREHENSIVE METABOLIC STAT 06/02/2018 PANEL 3:40 AM MARKER MAKER BLOOD GASES, ARTERIAL STAT 06/01/2018 11:00 PM MARKER MAKER STREPTOCOCCUS PNEUMO AG, Add on 06/01/2018 URINE 10:10 PM MARKER MAKER URINALYSIS, MICROSCOPIC Routine 06/01/2018 10:10 PM MARKER MAKER URINALYSIS DIPSTICK Routine 06/01/2018 10:10 PM MARKER MAKER UREA NITROGEN-URINE Add on 06/01/2018 RANDOM 10:10 PM MARKER MAKER SODIUM-URINE RANDOM Routine 06/01/2018 10:10 PM MARKER MAKER LEGIONELLA ANTIGEN Add on 06/01/2018 URINE,RAN 10:10 PM MARKER MAKER CREATININE-URINE RANDOM Routine 06/01/2018 10:10 PM MARKER MAKER THYROID STIMULATING Routine 06/01/2018 HORMONE-TSH 10:00 PM MARKER MAKER FREE T4 (FREE THYROXINE) Routine 06/01/2018 ONLY 10:00 PM MARKER MAKER VANCOMYCIN TIMED LEVEL STAT 06/01/2018 10:00 PM MARKER MAKER POC GLUCOSE 06/01/2018 8:58 PM MARKER MAKER GRAM STAIN 06/01/2018 8:33 PM MARKER MAKER CULTURE-RESP,LOWER Specimen 06/01/2018 W/SENSITIVITY in Lab 8:33 PM MARKER MAKER BLOOD GASES, ARTERIAL Routine 06/01/2018 8:00 PM MARKER MAKER O2 SATURATION, CENTRAL Routine 06/01/2018 VENOUS 7:00 PM MARKER MAKER CHEST SINGLE VIEW STAT 06/01/2018 6:52 PM MARKER MAKER CULTURE-BLOOD STAT 06/01/2018 W/SENSITIVITY 6:47 PM MARKER MAKER POC GLUCOSE 06/01/2018 6:44 PM MARKER MAKER CULTURE-BLOOD STAT 06/01/2018 W/SENSITIVITY 6:41 PM MARKER MAKER BLOOD BANK SAMPLE HOLD 06/01/2018 6:35 PM MARKER MAKER LACTIC ACID (BG - RAPID STAT 06/01/2018 LACTATE) 6:35 PM MARKER MAKER BLOOD GASES, ARTERIAL Routine 06/01/2018 6:35 PM MARKER MAKER PROCALCITONIN Routine 06/01/2018 6:31 PM MARKER MAKER TSH WITH FREE T4 REFLEX Specimen 06/01/2018 in Lab 6:31 PM MARKER MAKER TROPONIN-I Routine 06/01/2018 6:31 PM MARKER MAKER CBC AND DIFF Routine 06/01/2018 6:31 PM MARKER MAKER PHOSPHORUS Routine 06/01/2018 6:31 PM MARKER MAKER BNP (B-TYPE NATRIURETIC Routine 06/01/2018 PEPTI) 6:31 PM MARKER MAKER MAGNESIUM Routine 06/01/2018 6:31 PM MARKER MAKER COMPREHENSIVE METABOLIC Routine 06/01/2018 PANEL 6:31 PM MARKER MAKER GENERAL RAD CHEST Routine 06/01/2018 Diagnosis unknown EXTERNAL IMAGING 12:15 AM MARKER MAKER GENERAL RAD CHEST Routine 06/01/2018 Diagnosis unknown EXTERNAL IMAGING 12:00 AM MARKER MAKER ECG-SCAN 06/01/2018 12:00 AM MARKER MAKER ECG-SCAN 06/01/2018 12:00 AM MARKER MAKER GENERAL RAD CHEST Routine 05/31/2018 Diagnosis unknown EXTERNAL IMAGING 12:15 AM MARKER MAKER GENERAL RAD CHEST Routine 05/31/2018 Diagnosis unknown EXTERNAL IMAGING 12:00 AM MARKER MAKER GENERAL RAD CHEST Routine 05/30/2018 Diagnosis unknown EXTERNAL IMAGING 2:[address] HEAD EXTERNAL IMAGING Routine 05/30/2018 Diagnosis unknown 1:[address] L-SPINE EXTERNAL Routine 05/30/2018 Diagnosis unknown IMAGING 1:30 AM MARKER MAKER GENERAL RAD PELVIS Routine 05/30/2018 Diagnosis unknown EXTERNAL IMAGING 1:[address] CHEST/ABD/PEL EXTERNAL Routine 05/30/2018 Diagnosis unknown IMAGING 1:00 AM MARKER MAKER GENERAL RAD CHEST Routine 05/30/2018 Diagnosis unknown EXTERNAL IMAGING 12:45 AM MARKER MAKER GENERAL RAD CHEST Routine 05/30/2018 Diagnosis unknown EXTERNAL IMAGING 12:[address] HEAD EXTERNAL IMAGING Routine 05/30/2018 Diagnosis unknown 12:[address] HEAD EXTERNAL IMAGING Routine 05/30/2018 Diagnosis unknown 12:00 AM MARKER MAKER US ABDOMEN EXTERNAL Routine 05/28/2018 Diagnosis unknown IMAGING 12:00 AM MARKER MAKER in this encounter Results * POC GLUCOSE (06/18/2018 7:26 AM MARKER MAKER) Glucose, POC 118 (H) 70 - 100 MG/DL [facility] Performing Organization Address [facility] Phone Number [facility] [address] [place] [address] * MAGNESIUM (06/18/2018 6:08 AM MARKER MAKER) Magnesium 2.0 1.6 - 2.6 mg/dL [facility] Specimen Blood Performing Organization Address City/[facility] Phone Number [facility] [address] [place] [address] * BASIC METABOLIC PANEL (06/18/2018 6:08 AM MARKER MAKER) Sodium 140 137 - 147 MMOL/L [facility] [...] Urea Nitrogen 17 7 - 25 MG/DL [facility] Creatinine 1.22 (H) 0.4 - 1.00 MG/DL [facility] Calcium 9.3 8.5 - 10.6 MG/DL [facility] eGFR Non 45 (L) >60 [...] Address City/State/Zipcode Phone Number [facility]IN [facility] [address] [place] [address] * POC GLUCOSE (06/18/2018 4:17 AM MARKER MAKER) Glucose, POC 132 (H) 70 - 100 MG/DL [facility] Performing Organization Address City/[facility]/Zipcode Phone Number [facility] [address] [place] [address] * POC GLUCOSE (06/18/2018 3:09 AM MARKER MAKER) Glucose, POC 144 (H) 70 - 100 MG/DL [facility] Performing Organization Address City/[facility]/Zipcode Phone Number [facility] [address] [place] [address] * POC GLUCOSE (06/17/2018 8:24 PM MARKER MAKER) Glucose, POC 158 (H) 70 - 100 MG/DL [facility] Performing Organization Address City/State/Zipcode Phone Number [facility] [address] [place] [address] * POC GLUCOSE (06/17/2018 6:14 PM MARKER MAKER) Glucose, POC 117 (H) 70 - 100 MG/DL [facility] Performing Organization Address City/State/Zipcode Phone Number [facility] [address] [place] [address] * POC GLUCOSE (06/17/2018 1:08 PM MARKER MAKER) Glucose, POC 101 (H) 70 - 100 MG/DL [facility] Performing Organization Address City/[facility] Phone Number [facility] [address] [place] [address] * CBC (06/17/2018 10:03 AM MARKER MAKER) White Blood Cells 3.7 (L) 4.5 - [...] [facility] Specimen Blood Performing Organization Address City/[facility] Phone Number [facility] [address] [place] [address] * POC GLUCOSE (06/17/2018 7:39 AM MARKER MAKER) Glucose, POC 112 (H) 70 - 100 MG/DL [facility] Performing Organization Address [facility] Phone Number [facility] [address] [place] [address] * MAGNESIUM (06/17/2018 5:48 AM MARKER MAKER) Magnesium 1.9 1.6 - 2.6 mg/dL [facility] Specimen Blood Performing Organization Address City/[facility] Phone Number [facility] [address] [place] [address] * BASIC METABOLIC PANEL (06/17/2018 5:48 AM MARKER MAKER) Sodium 139 137 - 147 MMOL/L [facility] Potassium 4.1 3.5 - 5.1 MMOL/L [facility] Chloride 97 (L) 98 - 110 MMOL/L [facility] CO2 37 (H) 21 - 30 MMOL/L [facility] Anion Gap 5 3 - 12 [facility] Glucose 136 (H) 70 - 100 MG/DL [facility] Blood Urea Nitrogen 19 7 - 25 MG/DL [facility] Creatinine 1.16 (H) 0.4 - 1.00 MG/DL [facility] Calcium 8.8 8.5 - 10.6 MG/DL [facility] eGFR Non 48 (L) >60 mL/min [facility] Comment: The eGFR is not validated for use in drug dosing adjustments.Continue to use estimated creatinine clearance per dosing reference text.Please contact the Clinical Pharmacist for questions. eGFR 58 (L) >60 mL/min [facility] Comment: The eGFR is not validated for use in drug dosing adjustments.Continue to use estimated creatinine clearance per dosing reference text.Please contact the Clinical Pharmacist for questions. Specimen Blood Performing Organization Address City/[facility]/Zipcode Phone Number MAIN [facility] [address] [place] [address] * CBC (06/17/2018 5:48 AM MARKER MAKER) White Blood Cells 2.9 (L) 4.5 - 11.0 K/UL [facility] RBC 2.73 (L) 4.0 - 5.0 M/UL [facility] Hemoglobin 8.5 (L) 12.0 - 15.0 GM/DL [facility] Hematocrit 26.3 (L) 36 - 45 % [facility] MCV 96.3 80 - 100 FL [facility] MCH 31.3 26 - 34 PG [facility] MCHC 32.5 32.0 - 36.0 G/DL [facility] RDW 16.5 (H) 11 - 15 % MA[facility] Platelet Count 89 (L) 150 - 400 K/[facility] MPV 8.4 7 - 11 [place] [facility] Specimen Blood Performing Organization Address City/[facility]/Zipcode Phone Number MAIN LAB [address] [place] [address] * POC GLUCOSE (06/17/2018 3:19 AM MARKER MAKER) Glucose, POC 161 (H) 70 - 100 MG/DL [facility] Performing Organization Address City/[facility]/Zipcode Phone Number MA[facility] [address] [place] [address] * POC GLUCOSE (06/16/2018 10:17 PM MARKER MAKER) Glucose, POC 151 (H) 70 - 100 MG/DL [facility] Performing Organization Address City/[facility] Phone Number [facility] [address] [place] [address] * POC GLUCOSE (06/16/2018 5:44 PM MARKER MAKER) Glucose, POC 122 (H) 70 - 100 MG/DL [facility] Performing Organization Address City/[facility] Phone Number [facility] [address] [place] [address] * POC GLUCOSE (06/16/2018 2:46 PM MARKER MAKER) Glucose, POC 105 (H) 70 - 100 MG/DL [facility] Performing Organization Address City/[facility] Phone Number [facility] [address] [place] [address] * POC GLUCOSE (06/16/2018 8:55 AM MARKER MAKER) Glucose, POC 110 (H) 70 - 100 MG/DL [facility] Performing Organization Address [facility] Phone Number [facility] [address] [place] [address] * MAGNESIUM (06/16/2018 6:39 AM MARKER MAKER) Magnesium 2.0 1.6 - 2.6 mg/dL [facility] Specimen Blood Performing Organization Address [facility] Phone Number [facility] [address] [place] [address] * BASIC METABOLIC PANEL (06/16/2018 6:39 AM MARKER MAKER) Sodium 139 137 - 147 MMOL/L [facility] Potassium 4.1 3.5 - 5.1 MMOL/L [facility] Chloride 97 (L) 98 - 110 MMOL/L [facility] CO2 37 (H) 21 - 30 MMOL/L [facility] Anion Gap 5 3 - 12 [facility] Glucose 119 (H) 70 - 100 MG/DL [facility] Blood Urea Nitrogen 20 7 - 25 MG/DL [facility] Creatinine 1.13 (H) 0.4 - 1.00 MG/DL [facility] Calcium 9.0 8.5 - 10.6 MG/DL [facility] eGFR Non 49 (L) >60 mL/min [facility] Comment: The eGFR is not validated for use in drug dosing adjustments.Continue to use estimated creatinine clearance per dosing reference text.Please contact the Clinical Pharmacist for questions. eGFR 59 (L) >60 mL/min [facility] Comment: The eGFR is not validated for use in drug dosing adjustments.Continue to use estimated creatinine clearance per dosing reference text.Please contact the Clinical Pharmacist for questions. Specimen Blood Performing Organization Address City/State/Zipcode Phone Number [facility] [address] [place] [address] * CBC (06/16/2018 6:39 AM MARKER MAKER) White Blood Cells 2.9 (L) 4.5 - 11.0 K/UL [facility] RBC 2.53 (L) 4.0 - 5.0 M/UL [facility] Hemoglobin 8.0 (L) 12.0 - 15.0 GM/DL [facility] Hematocrit 24.2 (L) 36 - 45 % [facility] MCV 96.0 80 - 100 FL [facility] MCH 31.5 26 - 34 PG [facility] MCHC 32.8 32.0 - 36.0 G/DL [facility] RDW 16.6 (H) 11 - 15 % [facility] Platelet Count 87 (L) 150 - 400 K/UL [facility] MPV 8.6 7 - 11 FL [facility] Specimen Blood Performing Organization Address City/[facility]/Zipcode Phone Number [facility] [address] [place] [address] * POC GLUCOSE (06/15/2018 8:28 PM MARKER MAKER) Glucose, POC 186 (H) 70 - 100 MG/DL [facility] Performing Organization Address City/[facility]/Zipcode Phone Number [facility] [address] [place] [address] * POC GLUCOSE (06/15/2018 6:03 PM MARKER MAKER) Glucose, POC 131 (H) 70 - 100 MG/DL [facility] Performing Organization Address City/[facility]/Zipcode Phone Number [facility] [address] [place] [address] * POC GLUCOSE (06/15/2018 11:59 AM MARKER MAKER) Glucose, POC 129 (H) 70 - 100 MG/DL [facility] Performing Organization Address City/[facility]/Zipcode Phone Number [facility] [address] [place] [address] * POC GLUCOSE (06/15/2018 8:25 AM MARKER MAKER) Glucose, POC 137 (H) 70 - 100 MG/DL [facility] Performing Organization Address [facility] Phone Number [facility] [address] [place] [address] * MAGNESIUM (06/15/2018 6:05 AM MARKER MAKER) Magnesium 1.9 1.6 - 2.6 mg/dL [facility] Specimen Blood Performing Organization Address [facility] Phone Number [facility] [address] [place] [address] * BASIC METABOLIC PANEL (06/15/2018 6:05 AM MARKER MAKER) Sodium 138 137 - 147 MMOL/L [facility] Potassium 4.4 3.5 - 5.1 MMOL/L [facility] Chloride 95 (L) 98 - 110 MMOL/L [facility] CO2 37 (H) 21 - 30 MMOL/L [facility] Anion Gap 6 3 - 12 [facility] Glucose 132 (H) 70 - 100 MG/DL [facility] Blood Urea Nitrogen 20 7 - 25 MG/DL [facility] Creatinine 1.19 (H) 0.4 - 1.00 MG/DL [facility] Calcium 9.7 8.5 - 10.6 MG/DL [facility] eGFR Non 46 (L) >60 mL/min [facility] Comment: The eGFR is not validated for use in drug dosing adjustments.Continue to use estimated creatinine clearance per dosing reference text.Please contact the Clinical Pharmacist for questions. eGFR 56 (L) >60 mL/min [facility] Comment: The eGFR is not validated for use in drug dosing adjustments.Continue to use estimated creatinine clearance per dosing reference text.Please contact the Clinical Pharmacist for questions. Specimen Blood Performing Organization Address [facility] Phone Number [facility] [address] [place] [address] * CBC (06/15/2018 6:05 AM MARKER MAKER) White Blood Cells 4.6 4.5 - 11.0 K/UL [facility] RBC 2.92 (L) 4.0 - 5.0 M/UL [facility] Hemoglobin 9.2 (L) 12.0 - 15.0 GM/DL [facility] Hematocrit 28.0 (L) 36 - 45 % [facility] MCV 96.1 80 - 100 FL MAIN LAB MCH 31.5 26 - 34 PG MAIN LAB MCHC 32.8 32.0 - 36.0 G/DL MAIN LAB RDW 16.4 (H) 11 - 15 % MAIN LAB Platelet Count 103 (L) 150 - 400 K/UL MAIN LAB MPV 9.2 7 - 11 FL MAIN LAB Specimen Blood Performing Organization Address City/[facility] Phone Number [facility] [address] [place] [address] * POC GLUCOSE (06/15/2018 3:31 AM MARKER MAKER) Glucose, POC 153 (H) 70 - 100 MG/DL [facility] Performing Organization Address City/[facility] Phone Number [facility] [address] [place] [address] * POC GLUCOSE (06/14/2018 9:42 PM MARKER MAKER) Glucose, POC 181 (H) 70 - 100 MG/DL [facility] Performing Organization Address City/[facility] Phone Number MAIN LAB [address] [place] [address] * POC GLUCOSE (06/14/2018 8:11 PM MARKER MAKER) Glucose, POC 223 (H) 70 - 100 MG/DL [facility] Performing Organization Address [facility] Phone Number MAIN LAB [address] [place] [address] * POC GLUCOSE (06/14/2018 5:50 PM MARKER MAKER) Glucose, POC 169 (H) 70 - 100 MG/DL [facility] Performing Organization Address [facility] Phone Number [facility] [address] [place] [address] * POC GLUCOSE (06/14/2018 2:08 PM MARKER MAKER) Glucose, POC 119 (H) 70 - 100 MG/DL [facility] Performing Organization Address [facility] Phone Number [facility] [address] [place] [address] * CHEM 7 ADD ON (06/14/2018 7:49 AM MARKER MAKER) Total Protein 5.8 (L) 6.0 - 8.0 G/DL MAIN LAB Total Bilirubin 0.7 0.3 - 1.2 MG/DL [facility] Albumin 2.6 (L) 3.5 - 5.0 G/DL [facility] Alk Phosphatase 45 25 - 110 U/L [facility] AST (SGOT) 18 7 - 40 U/L [facility] ALT (SGPT) 4 (L) 7 - 56 U/L [facility] Performing Organization Address [facility] Phone Number MA[facility] LAB [address] [place] [address] * MAGNESIUM (06/14/2018 7:49 AM MARKER MAKER) Magnesium 1.8 1.6 - 2.6 mg/dL [facility] Specimen Blood Performing Organization Address [facility] Phone Number MA[facility] LAB [address] [place] [id number] * BASIC METABOLIC PANEL (06/14/2018 7:49 AM MARKER MAKER) Sodium 139 137 - 147 MMOL/L [facility] Potassium 4.0 3.5 - 5.1 MMOL/L [facility] Chloride 96 (L) 98 - 110 MMOL/L [facility] CO2 40 (H) 21 - 30 MMOL/L [facility] Anion Gap 3 3 - 12 [facility] Glucose 154 (H) 70 - 100 MG/DL [facility] Blood Urea Nitrogen 23 7 - 25 MG/DL [facility] Creatinine 1.10 (H) 0.4 - 1.00 MG/DL [facility] Calcium 9.3 8.5 - 10.6 MG/DL [facility] eGFR Non 51 (L) >60 mL/min [facility] Comment: The eGFR is not validated for use in drug dosing adjustments.Continue to use estimated creatinine clearance per dosing reference text.Please contact the Clinical Pharmacist for questions. eGFR >60 >60 mL/min [facility] Comment: The eGFR is not validated for use in drug dosing adjustments.Continue to use estimated creatinine clearance per dosing reference text.Please contact the Clinical Pharmacist for questions. Specimen Blood Performing Organization Address City/[facility] Phone Number MA[facility] LAB [address] [place] [address] * CBC (06/14/2018 7:49 AM MARKER MAKER) White Blood Cells 3.0 (L) 4.5 - 11.0 K/UL MAIN LAB RBC 2.44 (L) 4.0 - 5.0 M/UL [facility] Hemoglobin 7.8 (L) 12.0 - 15.0 GM/DL MAIN LAB Hematocrit 23.6 (L) 36 - 45 % MAIN LAB MCV 96.7 80 - 100 FL MAIN LAB MCH 32.0 26 - 34 PG [facility] MCHC 33.1 32.0 - 36.0 G/DL MAIN LAB RDW 16.7 (H) 11 - 15 % MAIN LAB Platelet Count 91 (L) 150 - 400 K/UL MAIN LAB MPV 8.4 7 - 11 FL MAIN LAB Specimen Blood Performing Organization Address City/State/Zipcode Phone Number MAIN LAB [address] [place] [address] * POC GLUCOSE (06/14/2018 7:48 AM MARKER MAKER) Glucose, POC 157 (H) 70 - 100 MG/DL [facility] Performing Organization Address City/[facility]/Zipcode Phone Number MAIN LAB [address] [place] [address] * POC GLUCOSE (06/14/2018 3:33 AM MARKER MAKER) Glucose, POC 197 (H) 70 - 100 MG/DL [facility] Performing Organization Address City/[facility]/Zipcode Phone Number MAIN LAB [address] [place] [address] * POC GLUCOSE (06/13/2018 8:21 PM MARKER MAKER) Glucose, POC 156 (H) 70 - 100 MG/DL [facility] Performing Organization Address City/[facility]/Zipcode Phone Number MAIN LAB [address] [place] [address] * POC GLUCOSE (06/13/2018 4:35 PM MARKER MAKER) Glucose, POC 144 (H) 70 - 100 MG/DL [facility] Performing Organization Address City/[facility]/Zipcode Phone Number MAIN LAB [address] [place] [address] * POC GLUCOSE (06/13/2018 11:42 AM MARKER MAKER) Glucose, POC 124 (H) 70 - 100 MG/DL [facility] Performing Organization Address City/[facility]/Zipcode Phone Number MAIN LAB [address] [place] [address] * BASIC METABOLIC PANEL (06/13/2018 11:40 AM MARKER MAKER) Sodium 139 137 - 147 MMOL/L [facility] Potassium 4.1 3.5 - 5.1 MMOL/L [facility] Chloride 96 (L) 98 - 110 MMOL/L [facility] CO2 39 (H) 21 - 30 MMOL/L [facility] Anion Gap 4 3 - 12 [facility] Glucose 134 (H) 70 - 100 MG/DL [facility] Blood Urea Nitrogen 27 (H) 7 - 25 MG/DL [facility] Creatinine 1.17 (H) 0.4 - 1.00 MG/DL [facility] Calcium 9.6 8.5 - 10.6 MG/DL [facility] eGFR Non 47 (L) >60 mL/min [facility] Comment: The eGFR is not validated for use in drug dosing adjustments.Continue to use estimated creatinine clearance per dosing reference text.Please contact the Clinical Pharmacist for questions. eGFR 57 (L) >60 mL/min [facility] Comment: The eGFR is not validated for use in drug dosing adjustments.Continue to use estimated creatinine clearance per dosing reference text.Please contact the Clinical Pharmacist for questions. Specimen Blood Performing Organization Address City/[facility]/Zipcode Phone Number [facility] [address] [place] [address] * CBC (06/13/2018 11:40 AM MARKER MAKER) White Blood Cells 4.1 (L) 4.5 - 11.0 K/UL MAIN LAB RBC 2.79 (L) 4.0 - 5.0 M/UL [facility] Hemoglobin 8.7 (L) 12.0 - 15.0 GM/DL MAIN LAB Hematocrit 26.9 (L) 36 - 45 % MAIN LAB MCV 96.5 80 - 100 FL MAIN LAB MCH 31.1 26 - 34 PG MAIN LAB MCHC 32.3 32.0 - 36.0 G/DL [facility] RDW 16.7 (H) 11 - 15 % MAIN LAB Platelet Count 113 (L) 150 - 400 K/UL MAIN LAB MPV 8.6 7 - 11 FL MAIN LAB Specimen Blood Performing Organization Address City/[facility]/Zipcode Phone Number [facility] [address] [place] [address] * MAGNESIUM (06/13/2018 11:40 AM MARKER MAKER) Magnesium 1.7 1.6 - 2.6 mg/dL MAIN LAB Specimen Blood Performing Organization Address City/[facility] Phone Number [facility] [address] [place] [address] * POC GLUCOSE (06/13/2018 8:48 AM MARKER MAKER) Glucose, POC 95 70 - 100 MG/DL [facility] Performing Organization Address [facility] Phone Number MA[facility] LAB [address] [place] [address] * POC GLUCOSE (06/13/2018 3:48 AM MARKER MAKER) Glucose, POC 111 (H) 70 - 100 MG/DL [facility] Performing Organization Address [facility] Phone Number MA[facility] [address] [place] [address] * POC GLUCOSE (06/12/2018 9:13 PM MARKER MAKER) Glucose, POC 115 (H) 70 - 100 MG/DL [facility] Performing Organization Address [facility] Phone Number MA[facility] [address] [place] [address] * POC GLUCOSE (06/12/2018 6:21 PM MARKER MAKER) Glucose, POC 118 (H) 70 - 100 MG/DL MAIN LAB Performing Organization Address [facility] Phone Number [facility] [address] [place] [address] * POC GLUCOSE (06/12/2018 11:44 AM MARKER MAKER) Glucose, POC 159 (H) 70 - 100 MG/DL [facility] Performing Organization Address City/[facility] Phone Number [facility] [address] [place] [address] * POC GLUCOSE (06/12/2018 8:25 AM MARKER MAKER) Glucose, POC 129 (H) 70 - 100 MG/DL [facility] Performing Organization Address [facility] Phone Number MA[facility] [address] [place] [address] * MAGNESIUM (06/12/2018 6:52 AM MARKER MAKER) Magnesium 1.9 1.6 - 2.6 mg/dL MAIN LAB Specimen Blood Performing Organization Address City/[facility] Phone Number [facility] [address] [place] [address] * BASIC METABOLIC PANEL (06/12/2018 6:52 AM MARKER MAKER) Sodium 137 137 - 147 MMOL/L [facility] Potassium 4.5 3.5 - 5.1 MMOL/L [facility] Chloride 97 (L) 98 - 110 MMOL/L [facility] CO2 35 (H) 21 - 30 MMOL/L [facility] Anion Gap 5 3 - 12 [facility] Glucose 137 (H) 70 - 100 MG/DL [facility] Blood Urea Nitrogen 30 (H) 7 - 25 MG/DL [facility] Creatinine 1.34 (H) 0.4 - 1.00 MG/DL [facility] Calcium 9.2 8.5 - 10.6 MG/DL [facility] eGFR Non 40 (L) >60 mL/min [facility] Comment: The eGFR is not validated for use in drug dosing adjustments.Continue to use estimated creatinine clearance per dosing reference text.Please contact the Clinical Pharmacist for questions. eGFR 49 (L) >60 mL/min [facility] Comment: The eGFR is not validated for use in drug dosing adjustments.Continue to use estimated creatinine clearance per dosing reference text.Please contact the Clinical Pharmacist for questions. Specimen Blood Performing Organization Address [facility] Phone Number [facility] [address] [place] [address] * CBC (06/12/2018 6:52 AM MARKER MAKER) White Blood Cells 4.2 (L) 4.5 - 11.0 K/UL [facility] RBC 2.57 (L) 4.0 - 5.0 M/UL [facility] Hemoglobin 8.0 (L) 12.0 - 15.0 GM/DL [facility] Hematocrit 24.8 (L) 36 - 45 % [facility] MCV 96.2 80 - 100 FL [facility] MCH 31.2 26 - 34 PG [facility] MCHC 32.4 32.0 - 36.0 G/DL [facility] RDW 16.8 (H) 11 - 15 % [facility] Platelet Count 103 (L) 150 - 400 K/UL [facility] MPV 8.7 7 - 11 FL [facility] Specimen Blood Performing Organization Address City/[facility]/Zipcode Phone Number [facility] [address] [place] [address] * POC GLUCOSE (06/12/2018 3:36 AM MARKER MAKER) Glucose, POC 148 (H) 70 - 100 MG/DL [facility] Performing Organization Address City/[facility] Phone Number [facility] [address] [place] [address] * POC GLUCOSE (06/11/2018 9:46 PM MARKER MAKER) Glucose, POC 149 (H) 70 - 100 MG/DL [facility] Performing Organization Address City/[facility]/Zipcode Phone Number [facility] [address] [place] [address] * POC GLUCOSE (06/11/2018 5:43 PM MARKER MAKER) Glucose, POC 151 (H) 70 - 100 MG/DL [facility] Performing Organization Address City/[facility] Phone Number [facility] [address] [place] [address] * POC GLUCOSE (06/11/2018 11:48 AM MARKER MAKER) Glucose, POC 137 (H) 70 - 100 MG/DL [facility] Performing Organization Address City/[facility] Phone Number [facility] [address] [place] [address] * POC GLUCOSE (06/11/2018 9:15 AM MARKER MAKER) Glucose, POC 102 (H) 70 - 100 MG/DL [facility] Performing Organization Address [facility] Phone Number MA[facility] [address] [place] [address] * MAGNESIUM (06/11/2018 5:17 AM MARKER MAKER) Magnesium 2.0 1.6 - 2.6 mg/dL [facility] Specimen Blood Performing Organization Address City/[facility] Phone Number [facility] [address] [place] [address] * BASIC METABOLIC PANEL (06/11/2018 5:17 AM MARKER MAKER) Sodium 137 137 - 147 MMOL/L [facility] Potassium 4.7 3.5 - 5.1 MMOL/L [facility] Chloride 97 (L) 98 - 110 MMOL/L [facility] CO2 36 (H) 21 - 30 MMOL/L [facility] Anion Gap 4 3 - 12 [facility] Glucose 118 (H) 70 - 100 MG/DL [facility] Blood Urea Nitrogen 31 (H) 7 - 25 MG/DL [facility] Creatinine 1.34 (H) 0.4 - 1.00 MG/DL [facility] Calcium 9.4 8.5 - 10.6 MG/DL [facility] eGFR Non 40 (L) >60 mL/min [facility] Comment: The eGFR is not validated for use in drug dosing adjustments.Continue to use estimated creatinine clearance per dosing reference text.Please contact the Clinical Pharmacist for questions. eGFR 49 (L) >60 mL/min [facility] Comment: The eGFR is not validated for use in drug dosing adjustments.Continue to use estimated creatinine clearance per dosing reference text.Please contact the Clinical Pharmacist for questions. Specimen Blood Performing Organization Address City/[facility]/Zipcode Phone Number MAIN LAB [address] [place] [address] * CBC (06/11/2018 5:17 AM MARKER MAKER) White Blood Cells 4.0 (L) 4.5 - 11.0 K/UL MAIN LAB RBC 2.55 (L) 4.0 - 5.0 M/UL MAIN LAB Hemoglobin 8.1 (L) 12.0 - 15.0 GM/DL MAIN LAB Hematocrit 24.7 (L) 36 - 45 % MAIN LAB MCV 96.7 80 - 100 FL MAIN LAB MCH 31.6 26 - 34 PG MAIN LAB MCHC 32.7 32.0 - 36.0 G/DL MAIN LAB RDW 16.7 (H) 11 - 15 % MAIN LAB Platelet Count 114 (L) 150 - 400 K/UL MAIN LAB MPV 8.4 7 - 11 FL MAIN LAB Specimen Blood Performing Organization Address City/[facility]/Zipcode Phone Number MAIN LAB [address] [place] [address] * TROPONIN-I (06/10/2018 10:20 PM MARKER MAKER) Troponin-I 0.01 0.0 - 0.05 NG/ML MAIN LAB Specimen Blood Performing Organization Address City/[facility]/Zipcode Phone Number MAIN LAB [address] [place] [address] * POC GLUCOSE (06/10/2018 8:40 PM MARKER MAKER) Glucose, POC 142 (H) 70 - 100 MG/DL [facility] Performing Organization Address City/[facility] Phone Number [facility] [address] [place] [address] * POC GLUCOSE (06/10/2018 5:19 PM MARKER MAKER) Glucose, POC 106 (H) 70 - 100 MG/DL [facility] Performing Organization Address [facility] Phone Number [facility] [address] [place] [address] * POC GLUCOSE (06/10/2018 11:58 AM MARKER MAKER) Glucose, POC 111 (H) 70 - 100 MG/DL [facility] Performing Organization Address [facility] Phone Number [facility] [address] [place] [phone] * POC GLUCOSE (06/10/2018 7:31 AM MARKER MAKER) Glucose, POC 104 (H) 70 - 100 MG/DL [facility] Performing Organization Address [facility] Phone Number [facility] [address] [place] [phone] * MAGNESIUM (06/10/2018 6:04 AM MARKER MAKER) Magnesium 1.8 1.6 - 2.6 mg/dL [facility] Specimen Blood Performing Organization Address [facility] Phone Number [facility] [address] [place] [address] * BASIC METABOLIC PANEL (06/10/2018 6:04 AM MARKER MAKER) Sodium 135 (L) 137 - 147 MMOL/L [facility] Potassium 4.7 3.5 - 5.1 MMOL/L [facility] Chloride 96 (L) 98 - 110 MMOL/L [facility] CO2 33 (H) 21 - 30 MMOL/L [facility] Anion Gap 6 3 - 12 [facility] Glucose 111 (H) 70 - 100 MG/DL [facility] MAIN [...] for questions. Specimen Blood Performing Organization Address City/[facility] Phone Number [facility] [address] [place] [address] * CBC (06/10/2018 6:04 AM MARKER MAKER) White Blood Cells 4.0 (L) 4.5 - 11.0 K/UL [facility] RBC 2.68 (L) 4.0 - 5.0 M/UL [facility] Hemoglobin 8.5 (L) 12.0 - 15.0 GM/DL [facility] Hematocrit 26.0 (L) 36 - 45 % [facility] MCV 96.8 80 - 100 FL [facility] MCH 31.5 26 - 34 PG [facility] MCHC 32.5 32.0 - 36.0 G/DL [facility] RDW 16.1 (H) 11 - 15 % [facility] Platelet Count 113 (L) 150 - 400 K/UL [facility] MPV 8.4 7 - 11 FL [facility] Specimen Blood Performing Organization Address [facility] Phone Number [facility] [address] [place] [address] * POC GLUCOSE (06/09/2018 9:57 PM MARKER MAKER) Glucose, POC 136 (H) 70 - 100 MG/DL [facility] Performing Organization Address [facility] Phone Number [facility] [address] [place] [address] * POC GLUCOSE (06/09/2018 5:30 PM MARKER MAKER) Glucose, POC 94 70 - 100 MG/DL [facility] Performing Organization Address [facility] Phone Number [facility] [address] [place] [address] * POC GLUCOSE (06/09/2018 1:25 PM MARKER MAKER) Glucose, POC 113 (H) 70 - 100 MG/DL [facility] Performing Organization Address [facility]/Zipcode Phone Number MAIN LAB [address] [place] [address] * POC GLUCOSE (06/09/2018 8:56 AM MARKER MAKER) Glucose, POC 127 (H) 70 - 100 MG/DL [facility] Performing Organization Address City/[facility] Phone Number [facility] [address] [place] [address] * CBC (06/09/2018 8:04 AM MARKER MAKER) White Blood Cells 4.6 4.5 - 11.0 K/UL [facility] RBC 2.78 (L) 4.0 - 5.0 M/UL [facility] Hemoglobin 8.7 (L) 12.0 - 15.0 GM/DL [facility] Hematocrit 27.1 (L) 36 - 45 % [facility] MCV 97.5 80 - 100 FL [facility] MCH 31.3 26 - 34 PG [facility] MCHC 32.1 32.0 - 36.0 G/DL [facility] RDW 16.6 (H) 11 - 15 % [facility] Platelet Count 124 (L) 150 - 400 K/UL [facility] MPV 8.5 7 - 11 FL [facility] Specimen Blood Performing Organization Address [facility] Phone Number MA[facility] LAB [address] [place] [address] * BASIC METABOLIC PANEL (06/09/2018 8:00 AM MARKER MAKER) Sodium 136 (L) 137 - 147 MMOL/L [facility] Potassium 4.3 3.5 - 5.1 MMOL/L [facility] Chloride 98 98 - 110 MMOL/L [facility] CO2 34 (H) 21 - 30 MMOL/L [facility] Anion Gap 4 3 - 12 [facility] Glucose 126 (H) 70 - 100 MG/DL [facility] Blood Urea Nitrogen 30 (H) 7 - 25 MG/DL [facility] Creatinine 1.26 (H) 0.4 - 1.00 MG/DL [facility] Calcium 9.4 8.5 - 10.6 MG/DL [facility] eGFR Non 43 (L) >60 mL/min [facility] Comment: The eGFR is not validated for use in drug dosing adjustments.Continue to use estimated creatinine clearance per dosing reference text.Please contact the Clinical Pharmacist for questions. eGFR 52 (L) >60 mL/min [facility] Comment: The eGFR is not validated for use in drug dosing adjustments.Continue to use estimated creatinine clearance per dosing reference text.Please contact the Clinical Pharmacist for questions. Performing Organization Address City/State/Zipcode Phone Number MAIN LAB [address] [place] [address] * MAGNESIUM (06/09/2018 8:00 AM MARKER MAKER) Magnesium 1.8 1.6 - 2.6 mg/dL MAIN LAB Specimen Blood Performing Organization Address City/[facility] Phone Number [facility] [address] [place] [address] * POC GLUCOSE (06/08/2018 9:14 PM MARKER MAKER) Glucose, POC 173 (H) 70 - 100 MG/DL [facility] Performing Organization Address City/[facility] Phone Number [facility] [address] [place] [address] * POC GLUCOSE (06/08/2018 6:17 PM MARKER MAKER) Glucose, POC 159 (H) 70 - 100 MG/DL [facility] Performing Organization Address City/[facility] Phone Number [facility] [address] [place] [address] * POC GLUCOSE (06/08/2018 12:40 PM MARKER MAKER) Glucose, POC 106 (H) 70 - 100 MG/DL [facility] Performing Organization Address City/[facility] Phone Number [facility] [address] [place] [address] * POC GLUCOSE (06/08/2018 8:08 AM MARKER MAKER) Glucose, POC 103 (H) 70 - 100 MG/DL MAIN LAB Performing Organization Address City/[facility] Phone Number [facility] [address] [place] [address] * TROPONIN-I (06/08/2018 4:45 AM MARKER MAKER) Troponin-I 0.01 0.0 - 0.05 NG/ML [facility] Performing Organization Address City/[facility]/Zipcode Phone Number MAIN LAB [address] [place] [address] * BASIC METABOLIC PANEL (06/08/2018 4:45 AM MARKER MAKER) Sodium 135 (L) 137 - 147 MMOL/L [facility] Potassium 4.1 3.5 - 5.1 MMOL/L [facility] Chloride 99 98 - 110 MMOL/L [facility] CO2 32 (H) 21 - 30 MMOL/L [facility] Anion Gap 4 3 - 12 [facility] Glucose 111 (H) 70 - 100 MG/DL [facility] Blood Urea Nitrogen 30 (H) 7 - 25 MG/DL [facility] Creatinine 1.16 (H) 0.4 - 1.00 MG/DL [facility] Calcium 9.2 8.5 - 10.6 MG/DL MAIN LAB eGFR Non 48 (L) >60 mL/min [facility] Comment: The eGFR is not validated for use in drug dosing adjustments.Continue to use estimated creatinine clearance per dosing reference text.Please contact the Clinical Pharmacist for questions. eGFR 58 (L) >60 mL/min [facility] Comment: The eGFR is not validated for use in drug dosing adjustments.Continue to use estimated creatinine clearance per dosing reference text.Please contact the Clinical Pharmacist for questions. Specimen Blood Performing Organization Address City/[facility]/Zipcode Phone Number MAIN LAB [address] [place] [address] * HEMOGLOBIN (06/08/2018 4:45 AM MARKER MAKER) Hemoglobin 8.8 (L) 12.0 - 15.0 GM/DL MAIN LAB Specimen Blood Performing Organization Address City/[facility] Phone Number [facility] [address] [place] [address] * POC GLUCOSE (06/08/2018 3:15 AM MARKER MAKER) Glucose, POC 110 (H) 70 - 100 MG/DL [facility] Performing Organization Address City/[facility]/Zipcode Phone Number MAIN LAB [address] [place] [address] * POC GLUCOSE (06/07/2018 8:45 PM MARKER MAKER) Glucose, POC 127 (H) 70 - 100 MG/DL [facility] Performing Organization Address City/[facility]/Zipcode Phone Number MAIN LAB [address] [place] [address] * POC GLUCOSE (06/07/2018 5:52 PM MARKER MAKER) Glucose, POC 119 (H) 70 - 100 MG/DL [facility] Performing Organization Address City/[facility]/Zipcode Phone Number MAIN LAB [address] [place] [address] * TRANSFUSE RBC'S NON-BLEEDING PT (06/07/2018 5:33 PM MARKER MAKER) * TRANSFUSE RBC'S NON-BLEEDING PT (06/07/2018 5:33 PM MARKER MAKER) * POC GLUCOSE (06/07/2018 2:04 PM MARKER MAKER) Glucose, POC 148 (H) 70 - 100 MG/DL [facility] Performing Organization Address City/State/Zipcode Phone Number [facility] [address] [place] [address] * TYPE & CROSSMATCH (06/07/2018 11:38 AM MARKER MAKER) Units Ordered 1 MAIN LAB Crossmatch Expires 06/10/2018 MAIN LAB Record Check FOUND MAIN LAB ABO/RH(D) A POS MAIN LAB Antibody Screen POS MAIN LAB Antibody Indentification Anti-Jk(a), MAIN LAB EMETERIO, Broad Spectrum NEG MAIN LAB Maureen Unit Number [id number] MAIN LAB Blood Component Type RBC,ADSOL,LEUKO REDUCED MAIN LAB Unit Division 0 MAIN LAB Status OF Unit REL FROM ALLOC MAIN LAB Transfusion Status DO NOT ISSUE FOR TRANSFUSION MAIN LAB Antigen Type (Units) Jk(a) antigen POS, MAIN LAB Unit Number [id number] MAIN LAB Blood Component Type RBC,ADSOL,LEUKO REDUCED MAIN LAB Unit Division 0 MAIN LAB Status OF Unit REL FROM ALLOC MAIN LAB Transfusion Status DO NOT ISSUE FOR TRANSFUSION MAIN LAB Antigen Type (Units) Jk(a) antigen POS, MAIN LAB Unit Number [id number] MAIN LAB Blood Component Type RBC,ADSOL,LEUKO REDUCED MAIN LAB Unit Division 0 MAIN LAB Status OF Unit REL FROM ALLOC MAIN LAB Transfusion Status DO NOT ISSUE FOR TRANSFUSION MAIN LAB Antigen Type (Units) Jk(a) antigen POS, MAIN LAB Unit Number [id number] MAIN LAB Blood Component Type RBC,ADSOL,LEUKO REDUCED MAIN LAB Unit Division 0 MAIN LAB Status OF Unit TRANSFUSED MAIN LAB Transfusion Status OK TO TRANSFUSE MAIN LAB Crossmatch Result COMPATIBLE, GEL MAIN LAB Antigen Type (Units) Jk(a) antigen NEG, MAIN LAB Unit Number [id number] MAIN LAB Blood Component Type RBC,ADSOL,LEUKO REDUCED MAIN LAB Unit Division 0 MAIN LAB Status OF Unit REL FROM ALLOC MAIN LAB Transfusion Status DO NOT ISSUE FOR TRANSFUSION MAIN LAB Antigen Type (Units) Jk(a) antigen POS, MAIN LAB Unit Number [id number] MAIN LAB Blood Component Type RBC,ADSOL,LEUKO REDUCED MAIN LAB Unit Division 0 MAIN LAB Status OF Unit REL FROM ALLOC MAIN LAB Transfusion Status DO NOT ISSUE FOR TRANSFUSION MAIN LAB Antigen Type (Units) Jk(a) antigen POS, MAIN LAB Specimen Blood Performing Organization Address City/[facility]/Zipcode Phone Number [facility] [address] [place] [address] * POC GLUCOSE (06/07/2018 7:52 AM MARKER MAKER) Glucose, POC 157 (H) 70 - 100 MG/DL MAIN LAB Performing Organization Address [facility] Phone Number [facility] [address] [place] [address] * CBC AND DIFF (06/07/2018 3:24 AM MARKER MAKER) White Blood Cells 3.4 (L) 4.5 - 11.0 K/UL [facility] RBC 2.27 (L) 4.0 - 5.0 M/UL [facility] Hemoglobin 7.1 (L) 12.0 - 15.0 GM/DL MAIN LAB Hematocrit 21.7 (L) 36 - 45 % MAIN LAB MCV 95.7 80 - 100 FL MAIN LAB MCH 31.3 26 - 34 PG MAIN LAB MCHC 32.7 32.0 - 36.0 G/DL [facility] RDW 17.0 (H) 11 - 15 % MAIN LAB Platelet Count 107 (L) 150 - 400 K/UL MAIN LAB MPV 8.3 7 - 11 FL MAIN LAB Neutrophils 62 41 - 77 % MAIN LAB Lymphocytes 20 (L) 24 - 44 % MAIN LAB Monocytes 11 4 - 12 % MAIN LAB Eosinophils 6 (H) 0 - 5 % MAIN LAB Basophils 1 0 - 2 % MAIN LAB Absolute Neutrophil Count 2.20 1.8 - 7.0 K/UL [facility] MAIN [facility] Absolute Lymph Count 0.70 (L) 1.0 - 4.8 K/UL [facility] MAIN [facility] Absolute Monocyte Count 0.40 0 - 0.80 K/UL [facility] Absolute Eosinophil Count 0.20 0 - 0.45 K/UL [facility] MAIN [facility] Absolute Basophil Count 0.00 0 - 0.20 K/UL [facility] MAIN LAB Specimen Blood Performing Organization Address City/[facility]/Zipcode Phone Number [facility] [address] [place] [address] * COMPREHENSIVE METABOLIC PANEL (06/07/2018 3:24 AM MARKER MAKER) Sodium 137 137 - 147 MMOL/L [facility] [...] for questions. eGFR 55 (L) >60 mL/min [facility] MAIN LAB Comment: The eGFR is not validated for use in drug dosing adjustments.Continue to use estimated creatinine clearance per dosing reference text.Please contact the Clinical Pharmacist for questions. Specimen Blood Performing Organization Address [facility]/Zipcode Phone Number [facility] [address] [place] [address] * MAGNESIUM (06/07/2018 3:24 AM MARKER MAKER) Magnesium 1.9 1.6 - 2.6 mg/dL [facility] MAIN LAB Specimen Blood Performing Organization Address City/[facility] Phone Number [facility] [address] [place] [address] * PHOSPHORUS (06/07/2018 3:24 AM MARKER MAKER) Phosphorus 2.6Comment: NOTE NEW REFERENCE 2.0 - 4.5 MG/DL [facility] MAIN LAB RANGES Specimen Blood Performing Organization Address City/[facility] Phone Number [facility] [address] [place] [address] * POC GLUCOSE (06/07/2018 3:10 AM MARKER MAKER) Glucose, POC 168 (H) 70 - 100 MG/DL [facility] MAIN [facility] Performing Organization Address [facility] Phone Number [facility] [address] [place] [address] * POC GLUCOSE (06/06/2018 9:11 PM MARKER MAKER) Glucose, POC 139 (H) 70 - 100 MG/DL [facility] MAIN [facility] Performing Organization Address [facility] Phone Number [facility] [address] [place] [address] * MAGNESIUM (06/06/2018 5:00 PM MARKER MAKER) Magnesium 1.8 1.6 - 2.6 mg/dL [facility] MAIN [facility] Specimen Blood Performing Organization Address [facility] Phone Number [facility] [address] [place] [address] * BASIC METABOLIC PANEL (06/06/2018 5:00 PM MARKER MAKER) Sodium 136 (L) 137 - 147 MMOL/L [facility]IN [facility] Potassium 3.7 3.5 - 5.1 MMOL/L [facility] MAIN [facility] Chloride 100 98 - 110 MMOL/L [facility] MAIN [facility] CO2 33 (H) 21 - 30 MMOL/L [facility]IN [facility] Anion Gap 3 3 - 12 [facility] MAIN LAB Glucose 139 (H) 70 - 100 MG/DL [facility]IN [facility] Blood Urea Nitrogen 32 (H) 7 - 25 MG/DL [facility] Creatinine 1.19 (H) 0.4 - 1.00 MG/DL [facility] MAIN LAB Calcium 9.0 8.5 - 10.6 MG/DL [facility] MAIN LAB eGFR Non 46 (L) >60 mL/min MAIN LAB Comment: The eGFR is not validated for use in drug dosing adjustments.Continue to use estimated creatinine clearance per dosing reference text.Please contact the Clinical Pharmacist for questions. eGFR 56 (L) >60 mL/min [facility] MAIN LAB Comment: The eGFR is not validated for use in drug dosing adjustments.Continue to use estimated creatinine clearance per dosing reference text.Please contact the Clinical Pharmacist for questions. Specimen Blood Performing Organization Address [facility] Phone Number MAIN LAB [address] [place] [address] * POC GLUCOSE (06/06/2018 4:34 PM MARKER MAKER) Glucose, POC 131 (H) 70 - 100 MG/DL [facility] MAIN LAB Performing Organization Address [facility] Phone Number MAIN LAB [address] [place] [address] * POC GLUCOSE (06/06/2018 7:44 AM MARKER MAKER) Glucose, POC 147 (H) 70 - 100 MG/DL [facility] MAIN LAB Performing Organization Address [facility] Phone Number MAIN LAB [address] [place] [address] * PROTIME INR (PT) (06/06/2018 6:20 AM MARKER MAKER) INR 1.2 0.8 - 1.2 MAIN LAB Specimen Blood Performing Organization Address [facility] Phone Number MAIN LAB [address] [place] [address] * CBC AND DIFF (06/06/2018 6:20 AM MARKER MAKER) White Blood Cells 3.8 (L) 4.5 - 11.0 K/UL MAIN LAB RBC 2.35 (L) 4.0 - 5.0 M/UL [facility] Hemoglobin 7.4 (L) 12.0 - 15.0 GM/DL MAIN LAB Hematocrit 22.7 (L) 36 - 45 % MAIN LAB MCV 96.7 80 - 100 FL MAIN LAB MCH 31.5 26 - 34 PG MAIN LAB MCHC 32.5 32.0 - 36.0 G/DL MAIN LAB RDW 17.0 (H) 11 - 15 % MAIN LAB Platelet Count 112 (L) 150 - 400 K/UL [facility] MAIN [facility] MPV 8.3 7 - 11 FL [facility] MAIN LAB Neutrophils 60 41 - 77 % [facility] MAIN LAB Lymphocytes 22 (L) 24 - 44 % [facility] MAIN [facility] Monocytes 10 4 - 12 % [facility] MAIN [facility] Eosinophils 7 (H) 0 - 5 % [facility] MAIN [facility] Basophils 1 0 - 2 % [facility] MAIN [facility] Absolute Neutrophil Count 2.30 1.8 - 7.0 K/UL [facility]IN [facility] Absolute Lymph Count 0.80 (L) 1.0 - 4.8 K/UL [facility]IN [facility] Absolute Monocyte Count 0.40 0 - 0.80 K/UL [facility] Absolute Eosinophil Count 0.20 0 - 0.45 K/UL [facility]IN [facility] Absolute Basophil Count 0.00 0 - 0.20 K/UL [facility] MAIN [facility] Specimen Blood Performing Organization Address City/State/Zipcode Phone Number MAIN LAB [address] [place] [address] * COMPREHENSIVE METABOLIC PANEL (06/06/2018 6:20 AM MARKER MAKER) Sodium 137 137 - 147 MMOL/L [facility] MAIN LAB Potassium 3.8 3.5 - 5.1 MMOL/L [facility] MAIN [facility] Chloride 101 98 - 110 MMOL/L [facility] MAIN LAB Glucose 148 (H) 70 - 100 MG/DL [facility] MAIN [facility] Blood Urea Nitrogen 33 (H) 7 - 25 MG/DL [facility]IN [facility] Creatinine 1.30 (H) 0.4 - 1.00 MG/DL [facility] MAIN [facility] Calcium 8.7 8.5 - 10.6 MG/DL [facility] MAIN [facility] Total Protein 5.6 (L) 6.0 - 8.0 G/DL [facility] MAIN [facility] Total Bilirubin 0.6 0.3 - 1.2 MG/DL [facility] MAIN [facility] Albumin 2.6 (L) 3.5 - 5.0 G/DL [facility] MAIN [facility] Alk Phosphatase 40 25 - 110 U/L [facility] MAIN LAB AST (SGOT) 13 7 - 40 U/L [facility] MAIN LAB CO2 34 (H) 21 - 30 MMOL/L [facility] MAIN LAB ALT (SGPT) 6 (L) 7 - 56 U/L [facility] MAIN LAB Anion Gap 2 (L) 3 - 12 [facility] MAIN LAB eGFR Non 42 (L) >60 mL/min [facility] MAIN LAB Comment: [...] Address City/State/Zipcode Phone Number MAIN LAB [address] [place] [address] * MAGNESIUM (06/06/2018 6:20 AM MARKER MAKER) Magnesium 1.8 1.6 - 2.6 mg/dL [facility] MAIN LAB Specimen Blood Performing Organization Address City/[facility]/Zipcode Phone Number [facility] [address] [place] [address] * PHOSPHORUS (06/06/2018 6:20 AM MARKER MAKER) Phosphorus 2.5Comment: NOTE NEW REFERENCE 2.0 - 4.5 MG/DL MAIN LAB RANGES Specimen Blood Performing Organization Address City/[facility]/Zipcode Phone Number MAIN LAB [address] [place] [address] * POC GLUCOSE (06/06/2018 3:15 AM MARKER MAKER) Glucose, POC 189 (H) 70 - 100 MG/DL MAIN LAB Performing Organization Address City/[facility]/Zipcode Phone Number MAIN LAB [address] [place] [address] * POC GLUCOSE (06/05/2018 9:13 PM MARKER MAKER) Glucose, POC 138 (H) 70 - 100 MG/DL [facility] MAIN [facility] Performing Organization Address City/[facility] Phone Number [facility] [address] [place] [address] * POC GLUCOSE (06/05/2018 6:31 PM MARKER MAKER) Glucose, POC 113 (H) 70 - 100 MG/DL [facility] MAIN [facility] Performing Organization Address City/[facility]/Zipcode Phone Number MAIN LAB [address] [place] [address] * POC GLUCOSE (06/05/2018 1:13 PM MARKER MAKER) Glucose, POC 112 (H) 70 - 100 MG/DL [facility] MAIN [facility] Performing Organization Address City/[facility]/Zipcode Phone Number MAIN LAB [address] [place] [address] * POC GLUCOSE (06/05/2018 7:51 AM MARKER MAKER) Glucose, POC 164 (H) 70 - 100 MG/DL [facility] MAIN [facility] Performing Organization Address [facility] Phone Number [facility] [address] [place] [address] * PROTIME INR (PT) (06/05/2018 3:43 AM MARKER MAKER) INR 1.2 0.8 - 1.2 MAIN LAB Specimen Blood Performing Organization Address [facility] Phone Number [facility] [address] [place] [address] * CBC AND DIFF (06/05/2018 3:43 AM MARKER MAKER) White Blood Cells 3.9 (L) 4.5 - 11.0 K/UL [facility]IN [facility] RBC 2.29 (L) 4.0 - 5.0 M/UL [facility]IN [facility] Hemoglobin 7.2 (L) 12.0 - 15.0 GM/DL [facility] MAIN LAB Hematocrit 21.9 (L) 36 - 45 % [facility] MAIN LAB MCV 95.7 80 - 100 FL [facility] MAIN LAB MCH 31.2 26 - 34 PG [facility] MAIN LAB MCHC 32.6 32.0 - 36.0 G/DL [facility] MAIN LAB RDW 17.0 (H) 11 - 15 % [facility] MAIN LAB Platelet Count 107 (L) 150 - 400 K/UL [facility] MAIN [facility] MPV 8.1 7 - 11 FL [facility] MAIN LAB Neutrophils 67 41 - 77 % [facility] MAIN LAB Lymphocytes 17 (L) 24 - 44 % MAIN LAB Monocytes 9 4 - 12 % MAIN LAB Eosinophils 6 (H) 0 - 5 % [facility] MAIN [facility] Basophils 1 0 - 2 % [facility] MAIN [facility] Absolute Neutrophil Count 2.60 1.8 - 7.0 K/UL [facility] MAIN [facility] Absolute Lymph Count 0.60 (L) 1.0 - 4.8 K/UL [facility]IN [facility] Absolute Monocyte Count 0.40 0 - 0.80 K/UL [facility]IN [facility] Absolute Eosinophil Count 0.20 0 - 0.45 K/UL [facility]IN [facility] Absolute Basophil Count 0.00 0 - 0.20 K/UL MAIN LAB Specimen Blood Performing Organization Address [facility] Phone Number [facility] [address] [place] [address] * COMPREHENSIVE METABOLIC PANEL (06/05/2018 3:43 AM MARKER MAKER) Sodium 141 137 - 147 MMOL/L [facility]IN [facility] Potassium 3.6 3.5 - 5.1 MMOL/L [facility]IN [facility] Chloride 105 98 - 110 MMOL/L [facility] MAIN [facility] Glucose 194 (H) 70 - 100 MG/DL [facility] MAIN [facility] Blood Urea Nitrogen 34 (H) 7 - 25 MG/DL [facility]IN [facility] Creatinine 1.19 (H) 0.4 - 1.00 MG/DL [facility] MAIN [facility] Calcium 8.7 8.5 - 10.6 MG/DL [facility] MAIN [facility] Total Protein 5.0 (L) 6.0 - 8.0 G/DL [facility] MAIN [facility] Total Bilirubin 0.6 0.3 - 1.2 MG/DL [facility] MAIN [facility] Albumin 2.3 (L) 3.5 - 5.0 G/DL [facility] MAIN [facility] Alk Phosphatase 35 25 - 110 U/L [facility] MAIN [facility] AST (SGOT) 10 7 - 40 U/L [facility] MAIN [facility] CO2 32 (H) 21 - 30 MMOL/L [facility] MAIN [facility] ALT (SGPT) 6 (L) 7 - 56 U/L [facility] MAIN [facility] Anion Gap 4 3 - 12 [facility] MAIN LAB eGFR Non 46 (L) >60 mL/min [facility] MAIN [facility] Comment: The eGFR is not validated for use in drug dosing adjustments.Continue to use estimated creatinine clearance per dosing reference text.Please contact the Clinical Pharmacist for questions. eGFR 56 (L) >60 mL/min [facility] MAIN [facility] Comment: The eGFR is not validated for use in drug dosing adjustments.Continue to use estimated creatinine clearance per dosing reference text.Please contact the Clinical Pharmacist for questions. Specimen Blood Performing Organization Address City/[facility]/Zipcode Phone Number [facility] [address] [place] [address] * MAGNESIUM (06/05/2018 3:43 AM MARKER MAKER) Magnesium 1.9 1.6 - 2.6 mg/dL MAIN LAB Specimen Blood Performing Organization Address City/[facility]/Zipcode Phone Number [facility] [address] [place] [address] * PHOSPHORUS (06/05/2018 3:43 AM MARKER MAKER) Phosphorus 2.5Comment: NOTE NEW REFERENCE 2.0 - 4.5 MG/DL [facility] MAIN LAB RANGES Specimen Blood Performing Organization Address City/[facility]/Zipcode Phone Number [facility] [address] [place] [address] * BLOOD GASES, CENTRAL VENOUS (06/04/2018 11:26 PM MARKER MAKER) PH-Central Venous 7.35 7.30 - 7.40 [facility] MAIN [facility] PCO2-Central Venous 61 >40 MMHG [facility] MAIN LAB PO2-Central Venous 37 (L) 40 - 50 MMHG [facility] MAIN [facility] Base Excess-Central 6.8 MMOL/L [facility] MAIN [facility] Venous O2 Sat (Calc)-Central 66.9 65 - 75 % [facility] MAIN [facility] Venous Bicarb-Central Venous 30.2 MMOL/L [facility] MAIN [facility] Specimen Blood Performing Organization Address City/State/Zipcode Phone Number [facility] [address] [place] [address] * POC GLUCOSE (06/04/2018 11:19 PM MARKER MAKER) Glucose, POC 181 (H) 70 - 100 MG/DL [facility]IN [facility] Performing Organization Address City/[facility] Phone Number [facility] [address] [place] [address] * POC GLUCOSE (06/04/2018 9:49 PM MARKER MAKER) Glucose, POC 187 (H) 70 - 100 MG/DL [facility]IN [facility] Performing Organization Address City/[facility]/Zipcode Phone Number MAIN LAB [address] [place] [address] * POC GLUCOSE (06/04/2018 4:37 PM MARKER MAKER) Glucose, POC 196 (H) 70 - 100 MG/DL [facility]IN [facility] Performing Organization Address City/[facility]/Zipcode Phone Number MAIN LAB [address] [place] [address] * VANCOMYCIN TROUGH (06/04/2018 11:15 AM MARKER MAKER) Vancomycin Trough 17.1 10.0 - 20.0 MCG/ML [facility] MAIN [facility] Performing Organization Address City/[facility]/Zipcode Phone Number MAIN LAB [address] [place] [address] * POC GLUCOSE (06/04/2018 11:03 AM MARKER MAKER) Glucose, POC 197 (H) 70 - 100 MG/DL [facility]IN [facility] Performing Organization Address City/[facility]/Zipcode Phone Number MAIN LAB [address] [place] [address] * POC GLUCOSE (06/04/2018 6:38 AM MARKER MAKER) Glucose, POC 173 (H) 70 - 100 MG/DL [facility]IN [facility] Performing Organization Address [facility] Phone Number [facility] [address] [place] [address] * PROTIME INR (PT) (06/04/2018 3:41 AM MARKER MAKER) INR 1.2 0.8 - 1.2 MAIN LAB Specimen Blood Performing Organization Address [facility] Phone Number [facility] [address] [place] [address] * CBC AND DIFF (06/04/2018 3:41 AM MARKER MAKER) White Blood Cells 6.0 4.5 - 11.0 K/UL [facility]IN [facility] RBC 2.72 (L) 4.0 - 5.0 M/UL [facility]IN [facility] Hemoglobin 8.5 (L) 12.0 - 15.0 GM/DL [facility]IN [facility] Hematocrit 25.9 (L) 36 - 45 % [facility] MAIN [facility] MCV 95.3 80 - 100 FL [facility]IN [facility] MCH 31.1 26 - 34 PG [facility]IN [facility] MCHC 32.6 32.0 - 36.0 G/DL [facility]IN [facility] RDW 17.2 (H) 11 - 15 % [facility] Platelet Count 138 (L) 150 - 400 K/UL [facility] MPV 7.6 7 - 11 FL [facility] Neutrophils 70 41 - 77 % [facility] Lymphocytes 14 (L) 24 - 44 % [facility] Monocytes 10 4 - 12 % [facility] Eosinophils 6 (H) 0 - 5 % [facility] Basophils 0 0 - 2 % [facility] Absolute Neutrophil Count 4.10 1.8 - 7.0 K/UL [facility] Absolute Lymph Count 0.90 (L) 1.0 - 4.8 K/UL [facility] Absolute Monocyte Count 0.60 0 - 0.80 K/UL [facility] Absolute Eosinophil Count 0.40 0 - 0.45 K/UL [facility] Absolute Basophil Count 0.00 0 - 0.20 K/UL MAIN LAB Specimen Blood Performing Organization Address [facility] Phone Number [facility] [address] [place] [address] * COMPREHENSIVE METABOLIC PANEL (06/04/2018 3:41 AM MARKER MAKER) Sodium 144 137 - 147 MMOL/L [facility] Potassium 3.2 (L) 3.5 - 5.1 MMOL/L [facility] Chloride 106 98 - 110 MMOL/L [facility] Glucose 194 (H) 70 - 100 MG/DL [facility] Blood Urea Nitrogen 33 (H) 7 - 25 MG/DL [facility] Creatinine 1.54 (H) 0.4 - 1.00 MG/DL [facility] Calcium 8.9 8.5 - 10.6 MG/DL [facility] Total Protein 6.0 6.0 - 8.0 G/DL [facility] Total Bilirubin 0.6 0.3 - 1.2 MG/DL [facility] Albumin 2.6 (L) 3.5 - 5.0 G/DL [facility] Alk Phosphatase 39 25 - 110 U/L [facility] AST (SGOT) 13 7 - 40 U/L [facility] CO2 34 (H) 21 - 30 MMOL/L [facility] ALT (SGPT) 7 7 - 56 U/L [facility] Anion Gap 4 3 - 12 [facility] MAIN [facility] eGFR Non 34 (L) >60 mL/min [facility] Comment: The eGFR is not validated for use in drug dosing adjustments.Continue to use estimated creatinine clearance per dosing reference text.Please contact the Clinical Pharmacist for questions. eGFR 42 (L) >60 mL/min [facility]IN [facility] Comment: The eGFR is not validated for use in drug dosing adjustments.Continue to use estimated creatinine clearance per dosing reference text.Please contact the Clinical Pharmacist for questions. Specimen Blood Performing Organization Address City/[facility]/Zipcode Phone Number MAIN LAB [address] [place] [address] * MAGNESIUM (06/04/2018 3:41 AM MARKER MAKER) Magnesium 1.9 1.6 - 2.6 mg/dL MAIN LAB Specimen Blood Performing Organization Address City/[facility]/Zipcode Phone Number MAIN LAB [address] [place] [address] * PHOSPHORUS (06/04/2018 3:41 AM MARKER MAKER) Phosphorus 3.3Comment: NOTE NEW REFERENCE 2.0 - 4.5 MG/DL [facility] MAIN [facility] RANGES Specimen Blood Performing Organization Address City/[facility]/Zipcode Phone Number MAIN LAB [address] [place] [address] * POC GLUCOSE (06/03/2018 8:58 PM MARKER MAKER) Glucose, POC 152 (H) 70 - 100 MG/DL [facility]IN [facility] Performing Organization Address [facility] Phone Number [facility] [address] [place] [address] * POC GLUCOSE (06/03/2018 6:22 PM MARKER MAKER) Glucose, POC 179 (H) 70 - 100 MG/DL [facility] Performing Organization Address [facility] Phone Number [facility] [address] [place] [address] * POC GLUCOSE (06/03/2018 11:53 AM MARKER MAKER) Glucose, POC 181 (H) 70 - 100 MG/DL [facility] Performing Organization Address [facility] Phone Number MAIN LAB [address] [place] [address] * POC GLUCOSE (06/03/2018 8:50 AM MARKER MAKER) Glucose, POC 175 (H) 70 - 100 MG/DL [facility] Performing Organization Address [facility] Phone Number MAIN LAB [address] [place] [address] * PROTIME INR (PT) (06/03/2018 3:48 AM MARKER MAKER) INR 1.2 0.8 - 1.2 MAIN LAB Specimen Blood Performing Organization Address [facility] Phone Number MAIN LAB [address] [place] [address] * VANCOMYCIN TIMED LEVEL (06/03/2018 3:48 AM MARKER MAKER) Vancomycin Random 17.4 MCG/ML MAIN LAB Specimen Blood Performing Organization Address [facility] Phone Number MAIN LAB [address] [place] [address] * CBC AND DIFF (06/03/2018 3:48 AM MARKER MAKER) White Blood Cells 9.6 4.5 - 11.0 K/UL [facility] RBC 2.79 (L) 4.0 - 5.0 M/UL [facility] Hemoglobin 9.0 (L) 12.0 - 15.0 GM/DL [facility] Hematocrit 26.7 (L) 36 - 45 % [facility] MCV 95.8 80 - 100 FL [facility] MCH 32.2 26 - 34 PG [facility] MCHC 33.7 32.0 - 36.0 G/DL [facility] RDW 16.7 (H) 11 - 15 % [facility] Platelet Count 184 150 - 400 K/UL [facility] MPV 7.9 7 - 11 FL [facility] Neutrophils 78 (H) 41 - 77 % [facility] Lymphocytes 9 (L) 24 - 44 % [facility] Monocytes 11 4 - 12 % [facility] Eosinophils 2 0 - 5 % [facility] Basophils 0 0 - 2 % [facility] Absolute Neutrophil Count 7.40 (H) 1.8 - 7.0 K/UL [facility] Absolute Lymph Count 0.90 (L) 1.0 - 4.8 K/UL [facility] Absolute Monocyte Count 1.00 (H) 0 - 0.80 K/UL [facility] Absolute Eosinophil Count 0.20 0 - 0.45 K/UL [facility] Absolute Basophil Count 0.00 0 - 0.20 K/UL [facility] Specimen Blood Performing Organization Address City/State/Zipcode Phone Number [facility] [address] [place] [address] * COMPREHENSIVE METABOLIC PANEL (06/03/2018 3:48 AM MARKER MAKER) Sodium 143 137 - 147 MMOL/L [facility] Potassium 3.2 (L) 3.5 - 5.1 MMOL/L [facility] Chloride 105 98 - 110 MMOL/L [facility] Glucose 183 (H) 70 - 100 MG/DL [facility] Blood Urea Nitrogen 39 (H) 7 - 25 MG/DL [facility] Creatinine 1.72 (H) 0.4 - 1.00 MG/DL [facility] Calcium 9.1 8.5 - 10.6 MG/DL [facility] Total Protein 6.3 6.0 - 8.0 G/DL [facility] Total Bilirubin 0.8 0.3 - 1.2 MG/DL [facility] Albumin 2.9 (L) 3.5 - 5.0 G/DL [facility] Alk Phosphatase 42 25 - 110 U/L [facility] AST (SGOT) 15 7 - 40 U/L [facility] CO2 30 21 - 30 MMOL/L [facility] ALT (SGPT) 6 (L) 7 - 56 U/L [facility] Anion Gap 8 3 - 12 [facility] eGFR Non 30 (L) >60 mL/min [facility] Comment: The eGFR is not validated for use in drug dosing adjustments.Continue to use estimated creatinine clearance per dosing reference text.Please contact the Clinical Pharmacist for questions. eGFR 37 (L) >60 mL/min [facility] Comment: The eGFR is not validated for use in drug dosing adjustments.Continue to use estimated creatinine clearance per dosing reference text.Please contact the Clinical Pharmacist for questions. Specimen Blood Performing Organization Address City/State/Zipcode Phone Number MAIN LAB [address] [place] [address] * MAGNESIUM (06/03/2018 3:48 AM MARKER MAKER) Magnesium 2.0 1.6 - 2.6 mg/dL [facility] Specimen Blood Performing Organization Address City/[facility]/Zipcode Phone Number MAIN LAB [address] [place] [address] * PHOSPHORUS (06/03/2018 3:48 AM MARKER MAKER) Phosphorus 3.2Comment: NOTE NEW REFERENCE 2.0 - 4.5 MG/DL [facility] MAIN [facility] RANGES Specimen Blood Performing Organization Address City/[facility]/Zipcode Phone Number MAIN LAB [address] [place] [address] * POC GLUCOSE (06/02/2018 9:37 PM MARKER MAKER) Glucose, POC 140 (H) 70 - 100 MG/DL [facility] Performing Organization Address [facility] Phone Number [facility] [address] [place] [address] * POC GLUCOSE (06/02/2018 5:53 PM MARKER MAKER) Glucose, POC 160 (H) 70 - 100 MG/DL [facility] Performing Organization Address City/[facility] Phone Number [facility] [address] [place] [address] * ABDOMEN AP ONLY (06/02/2018 5:17 PM MARKER MAKER) Impressions Performed At Interval exchange of enteric [...] Interface, Radiant Results - 06/03/2018 6:28 AM MARKER MAKER Portable upright abdomen CLINICAL HISTORY: Post feeding [...] on 06/03/2018 6:24 AM. Performing Organization Address [facility] Phone Number RAD RESULTS * BLOOD GASES, ARTERIAL (06/02/2018 2:57 PM MARKER MAKER) pH-Arterial 7.37 7.35 - 7.45 [facility] pCO2-Arterial 52 (H) 35 - 45 MMHG [facility] MAIN LAB pO2-Arterial 83 80 - 100 MM[facility] MAIN [facility] Base Excess-Arterial 4.4 MMOL/L [facility] MAIN [facility] O2 Sat-Arterial 96.2 95 - 99 % [facility] MAIN LAB Wvcregifpii-ZUA-Dui 28.4 (H) 21 - 28 MMOL/L MAIN LAB Specimen Blood, arterial - Blood Performing Organization Address [facility] Phone Number MAIN LAB [address] [place] [address] * CULTURE-URINE W/SENSITIVITY (06/02/2018 2:23 PM MARKER MAKER) Battery Name URINE CULTURE MAIN LAB Specimen Description URINE MAIN LAB Special Requests NONE MAIN LAB Culture <100,000 organisms/ml MAIN LAB TESS ALBICANS Report Status FINAL MAIN LAB 06/03/2018 Specimen Urine - Urine Performing Organization Address [facility] Phone Number MAIN LAB [address] [place] [address] * AMMONIA (06/02/2018 2:20 PM MARKER MAKER) Ammonia 95 (H) 9 - 35 MCMOL/L MAIN LAB Specimen Blood Performing Organization Address [facility] Phone Number MAIN LAB [address] [place] [address] * POC GLUCOSE (06/02/2018 12:48 PM MARKER MAKER) Glucose, POC 194 (H) 70 - 100 MG/DL MAIN LAB Performing Organization Address City/State/Zipcode Phone Number MAIN LAB [address] [place] [address] * 2-D + DOPPLER ECHOCARDIOGRAM (06/02/2018 9:41 AM MARKER MAKER) IVS 1.17 0.6 - 0.9 cm OTHER [...] 34 OTHER OUTSIDE LAB Cardiology Ultrasound Siemens [id number] OTHER OUTSIDE LAB Machine Left Ventricle Mass [...] MR appears more prominent. Performing Organization Address City/[employer] Phone Number OTHER OUTSIDE LAB * POC GLUCOSE (06/02/2018 8:02 AM MARKER MAKER) Glucose, POC 244 (H) 70 - 100 MG/DL [facility] MAIN LAB Performing Organization Address [facility]/[employer] Phone Number [employer] MAIN LAB [address] [place] [phone] * POC GLUCOSE (06/02/2018 3:48 AM MARKER MAKER) Glucose, POC 261 (H) 70 - 100 MG/DL [facility] MAIN LAB Performing Organization Address [facility]/[employer] Phone Number [employer] MAIN LAB [address] [place] [address] * TROPONIN-I (06/02/2018 3:40 AM MARKER MAKER) Troponin-I 0.01 0.0 - 0.05 NG/ML [facility] MAIN LAB Performing Organization Address [facility]/[employer] Phone Number [employer] MAIN LAB [address] [place] [address] * PHOSPHORUS (06/02/2018 3:40 AM MARKER MAKER) Phosphorus 3.2Comment: NOTE NEW REFERENCE 2.0 - 4.5 MG/DL [employer] MAIN LAB RANGES Specimen Blood Performing Organization Address [facility] Phone Number [employer] MAIN LAB [address] [place] [address] * MAGNESIUM (06/02/2018 3:40 AM MARKER MAKER) Magnesium 2.0 1.6 - 2.6 mg/dL [employer] MAIN LAB Specimen Blood Performing Organization Address [facility]/Zipcode Phone Number [facility] MAIN [facility] [address] [place] [address] * BLOOD GASES, ARTERIAL (06/02/2018 3:40 AM MARKER MAKER) pH-Arterial 7.43 7.35 - 7.45 MAIN LAB pCO2-Arterial 45 35 - 45 MMHG [facility] MAIN LAB pO2-Arterial 101 (H) 80 - 100 MMHG [facility] MAIN LAB Base Excess-Arterial 5.0 MMOL/L [facility] MAIN LAB O2 Sat-Arterial 98.3 95 - 99 % [facility] LAB Gogzhjsklnc-WJW-Rsr 28.9 (H) 21 - 28 MMOL/L MAIN LAB Specimen Blood, arterial - Blood Performing Organization Address City/State/Zipcode Phone Number [facility] LAB [address] [place] [address] * COMPREHENSIVE METABOLIC PANEL (06/02/2018 3:40 AM MARKER MAKER) Sodium 139 137 - 147 MMOL/L [facility] MAIN LAB Potassium 3.5 3.5 - 5.1 MMOL/L [facility] MAIN LAB Chloride 103 98 - 110 MMOL/L [facility] MAIN LAB Glucose 302 (H) 70 - 100 MG/DL [facility] MAIN LAB Blood Urea Nitrogen 39 (H) 7 - 25 MG/DL [facility] MAIN LAB Creatinine 1.79 (H) 0.4 - 1.00 MG/DL [facility] MAIN LAB Calcium 8.7 8.5 - 10.6 MG/DL [facility] MAIN LAB Total Protein 5.9 (L) 6.0 - 8.0 G/DL [facility] MAIN LAB Total Bilirubin 0.7 0.3 - 1.2 MG/DL [facility] MAIN [facility] Albumin 2.6 (L) 3.5 - 5.0 G/DL [facility] MAIN [facility] Alk Phosphatase 41 25 - 110 U/L [facility] MAIN LAB AST (SGOT) 10 7 - 40 U/L [facility] MAIN [facility] CO2 27 21 - 30 MMOL/L [facility] MAIN [facility] ALT (SGPT) 5 (L) 7 - 56 U/L [facility] MAIN [facility] Anion Gap 9 3 - 12 [facility] MAIN LAB eGFR Non 29 (L) >60 mL/min [facility] MAIN [facility] Comment: The eGFR is not validated for use in drug dosing adjustments.Continue to use estimated creatinine clearance per dosing reference text.Please contact the Clinical Pharmacist for questions. eGFR 35 (L) >60 mL/min [facility] MAIN LAB Comment: The eGFR is not validated for use in drug dosing adjustments.Continue to use estimated creatinine clearance per dosing reference text.Please contact the Clinical Pharmacist for questions. Specimen Blood Performing Organization Address City/[facility]/Zipcode Phone Number MAIN LAB [address] [place] [address] * PROTIME INR (PT) (06/02/2018 3:40 AM MARKER MAKER) INR 1.3 (H) 0.8 - 1.2 [facility] MAIN LAB Specimen Blood Performing Organization Address [facility] Phone Number [facility] MA[facility] [address] [place] [address] * CBC AND DIFF (06/02/2018 3:40 AM MARKER MAKER) White Blood Cells 4.0 (L) 4.5 - 11.0 K/UL [facility] MAIN LAB RBC 2.56 (L) 4.0 - 5.0 M/UL [facility] MAIN LAB Hemoglobin 8.1 (L) 12.0 - 15.0 GM/DL [facility] MAIN LAB Hematocrit 24.2 (L) 36 - 45 % [facility] MAIN LAB MCV 94.8 80 - 100 FL [facility] MAIN LAB MCH 31.5 26 - 34 PG [facility] MAIN LAB MCHC 33.2 32.0 - 36.0 G/DL [facility] MAIN LAB RDW 16.9 (H) 11 - 15 % [facility] MAIN LAB Platelet Count 113 (L) 150 - 400 K/UL [facility] MAIN LAB MPV 8.0 7 - 11 FL [facility] MAIN LAB Neutrophils 87 (H) 41 - 77 % [facility] MAIN [facility] Lymphocytes 7 (L) 24 - 44 % [facility] MAIN [facility] Monocytes 6 4 - 12 % [facility] MAIN [facility] Eosinophils 0 0 - 5 % [facility] MAIN [facility] Basophils 0 0 - 2 % [facility] MAIN [facility] Absolute Neutrophil Count 3.40 1.8 - 7.0 K/UL [facility] MAIN LAB Absolute Lymph Count 0.30 (L) 1.0 - 4.8 K/UL [facility] MAIN LAB Absolute Monocyte Count 0.20 0 - 0.80 K/UL [facility] MAIN LAB Absolute Eosinophil Count 0.00 0 - 0.45 K/UL [facility] MAIN LAB Absolute Basophil Count 0.00 0 - 0.20 K/UL [facility] MAIN LAB Specimen Blood Performing Organization Address [facility]/Zipcode Phone Number [facility] MAIN LAB [address] [place] [address] * BLOOD GASES, ARTERIAL (06/01/2018 11:00 PM MARKER MAKER) pH-Arterial 7.41 7.35 - 7.45 [facility] MAIN LAB pCO2-Arterial 46 (H) 35 - 45 MMHG [facility] MAIN LAB pO2-Arterial 83 80 - 100 MMHG [facility] MAIN LAB Base Excess-Arterial 4.1 MMOL/L [facility] MAIN LAB O2 Sat-Arterial 96.3 95 - 99 % [facility] MAIN LAB Effuztvjbvo-VBH-Dmv 28.1 (H) 21 - 28 MMOL/L [facility] MAIN LAB Specimen Blood, arterial - Blood Performing Organization Address [facility] Phone Number [facility] [address] [place] [address] * UREA NITROGEN-URINE RANDOM (06/01/2018 10:10 PM MARKER MAKER) Urea Nitrogen 757 MG/DL [facility] MAIN LAB Performing Organization Address [facility] Phone Number [facility] MAIN [facility] [address] [place] [phone] * STREPTOCOCCUS PNEUMO AG, URINE (06/01/2018 10:10 PM MARKER MAKER) Battery Name STREP PNEUMO AG, UR [facility] MAIN LAB Specimen Description URINE [facility] MAIN LAB Special Requests NONE [facility] MAIN LAB Antigen NEGATIVE MAIN LAB Report Status FINAL [facility] MAIN LAB 06/02/2018 Specimen Urine Performing Organization Address [facility] Phone Number [facility] MAIN LAB [address] [place] [address] * LEGIONELLA ANTIGEN URINE,RAN (06/01/2018 10:10 PM MARKER MAKER) Battery Name LEGIONELLA URINE ANTIGEN MAIN LAB Specimen Description URINE [facility] MAIN LAB Special Requests NONE [facility] MAIN LAB Antigen NEGATIVE [facility] MAIN LAB Report Status FINAL [facility] MAIN LAB 06/02/2018 Specimen Urine - Urine Performing Organization Address [facility] Phone Number [facility] MAIN LAB [address] [place] [address] * URINALYSIS, MICROSCOPIC (06/01/2018 10:10 PM MARKER MAKER) WBCs,UA 20-50 0 - 2 /HPF [facility] MAIN LAB RBCs,UA 10-20 0 - 3 /HPF [facility] MAIN LAB Bacteria,UA FEW (A) NEG-NEG [facility] MAIN LAB Squamous Epithelial Cells 0-2 0 - 5 [facility] MAIN LAB Budding Yeast PACKED [facility] MAIN LAB Specimen Urine - Urine Performing Organization Address [facility] Phone Number [facility] MA[facility] [address] [place] [address] * URINALYSIS DIPSTICK (06/01/2018 10:10 PM MARKER MAKER) Color,UA CARLIE MAIN LAB Turbidity,UA CLEAR CLEAR-CLEAR MAIN LAB Specific [place]-Urine 1.018 1.003 - 1.035 [facility] MAIN LAB pH,UA 5.0 5.0 - 8.0 [facility] MAIN LAB Protein,UA NEG NEG-NEG [facility] MAIN LAB Glucose,UA NEG NEG-NEG [facility] MAIN LAB Ketones,UA NEG NEG-NEG [facility] MAIN LAB Bilirubin,UA NEG NEG-NEG [facility] MAIN LAB Blood,UA 1+ (A) NEG-NEG [facility] MAIN LAB Urobilinogen,UA INCREASED (A) NORM-NORMAL MAIN LAB Nitrite,UA POS (A) NEG-NEG MAIN LAB Leukocytes,UA 1+ (A) NEG-NEG MAIN LAB Urine Ascorbic Acid, UA NEG NEG-NEG MAIN LAB Specimen Urine - Urine Performing Organization Address [facility] Phone Number MAIN LAB [address] [place] [address] * CREATININE-URINE RANDOM (06/01/2018 10:10 PM MARKER MAKER) Creatinine, Random 94 MG/DL MAIN LAB Specimen Urine - Urine Performing Organization Address [facility] Phone Number MAIN LAB [address] [place] [address] * SODIUM-URINE RANDOM (06/01/2018 10:10 PM MARKER MAKER) Sodium, Random 10 MMOL/L MAIN LAB Specimen Urine - Urine Performing Organization Address [facility] Phone Number MAIN LAB [address] [place] [address] * VANCOMYCIN TIMED LEVEL (06/01/2018 10:00 PM MARKER MAKER) Vancomycin Random 10.5 MCG/ML MAIN LAB Specimen Blood Performing Organization Address [facility] Phone Number MAIN LAB [address] [place] [address] * FREE T4 (FREE THYROXINE) ONLY (06/01/2018 10:00 PM MARKER MAKER) T4-Free 1.0 0.6 - 1.6 NG/DL MAIN LAB Specimen Blood Performing Organization Address [facility] Phone Number MAIN LAB [address] [place] [address] * THYROID STIMULATING HORMONE-TSH (06/01/2018 10:00 PM MARKER MAKER) TSH 1.990 0.35 - 5.00 MCU/ML [facility] MAIN LAB Specimen Blood Performing Organization Address [facility] Phone Number [facility] MAIN [facility] [address] [place] [address] * POC GLUCOSE (06/01/2018 8:58 PM MARKER MAKER) Glucose, POC 304 (H) 70 - 100 MG/DL [facility] MAIN LAB Performing Organization Address [facility] Phone Number [facility] MAIN [facility] [address] [place] [address] * GRAM STAIN (06/01/2018 8:33 PM MARKER MAKER) Battery Name GRAM STAIN [facility] MAIN LAB Specimen Description TRACHEAL ASPIRATE [facility] MAIN LAB Special Requests NONE MAIN LAB Gram Stain GREATER THAN 25/LPF [facility] MAIN LAB NEUTROPHILS LESS THAN 10/LPF SQUAMOUS EPITHELIAL CELLS NO ORGANISMS SEEN Report Status FINAL [facility] MAIN LAB 06/02/2018 Specimen Tracheal Aspirate Performing Organization Address [facility] Phone Number [facility] MAIN [facility] [address] [place] [address] * CULTURE-RESP,LOWER W/SENSITIVITY (06/01/2018 8:33 PM MARKER MAKER) Battery Name LOWER RESP CULTURE [facility] MAIN LAB Specimen Description TRACHEAL ASPIRATE [facility] MAIN LAB Special Requests NONE MAIN LAB Direct Gram Stain GREATER THAN 25/LPF [facility] MAIN LAB NEUTROPHILS LESS THAN 10/LPF SQUAMOUS EPITHELIAL CELLS NO ORGANISMS SEEN Culture Light growth [facility] MAIN LAB NO SIGNIFICANT ROB Report Status FINAL [facility] MAIN [facility] 06/03/2018 Specimen Tracheal Aspirate Performing Organization Address [facility] Phone Number [facility] MAIN [facility] [address] [place] [address] * BLOOD GASES, ARTERIAL (06/01/2018 8:00 PM MARKER MAKER) pH-Arterial 7.46 (H) 7.35 - 7.45 [facility] MAIN LAB pCO2-Arterial 39 35 - 45 MMHG [facility] MAIN [facility] pO2-Arterial 70 (L) 80 - 100 MMHG [facility] MAIN [facility] Base Excess-Arterial 3.9 MMOL/L [facility] MAIN [facility] O2 Sat-Arterial 95.0 95 - 99 % [facility] MAIN [facility] Vzaaryrwlvv-EEX-Snh 27.9 21 - 28 MMOL/L [facility] MAIN LAB Specimen Blood, arterial - Blood Performing Organization Address [facility]/Zipcode Phone Number [facility] MAIN LAB [address] [place] [address] * O2 SATURATION, CENTRAL VENOUS (06/01/2018 7:00 PM MARKER MAKER) O2 Sat, Central Venous 83.6 % [facility] MAIN LAB Specimen Blood Performing Organization Address City/[facility]/Zipcode Phone Number [facility] MAIN LAB [address] [place] [address] * CHEST SINGLE VIEW (06/01/2018 6:52 PM MARKER MAKER) Impressions Performed At Interval intubation with persistence [...] Interface, Radiant Results - 06/02/2018 11:11 AM MARKER MAKER CHEST SINGLE VIEW History: Intubated, Hypoxia. Technique: [...] on 06/02/2018 11:06 AM. Performing Organization Address City/[facility] Phone Number RAD RESULTS * CULTURE-BLOOD W/SENSITIVITY (06/01/2018 6:47 PM MARKER MAKER) Battery Name BLOOD CULTURE MAIN LAB Specimen Description BLOOD MAIN LAB TRIPLE LUMEN Special Requests NONE [facility] MAIN LAB Culture NO GROWTH 5 DAYS [facility] MAIN LAB Report Status FINAL MAIN LAB 06/07/2018 Specimen Blood Performing Organization Address [facility] Phone Number MAIN LAB [address] [place] [address] * POC GLUCOSE (06/01/2018 6:44 PM MARKER MAKER) Glucose, POC 321 (H) 70 - 100 MG/DL MAIN LAB Performing Organization Address [facility] Phone Number MAIN LAB [address] [place] [address] * CULTURE-BLOOD W/SENSITIVITY (06/01/2018 6:41 PM MARKER MAKER) Battery Name BLOOD CULTURE MAIN LAB Specimen Description BLOOD MAIN LAB aerobic bottle only LEFT ARM Special Requests Culture performed on specimen MAIN LAB with less than the recommended volume of 10 ml/bottle. Decreased volume will affect sensitivity of culture. Culture NO GROWTH 5 DAYS [facility] MAIN LAB Report Status FINAL MAIN LAB 06/07/2018 Specimen Blood Performing Organization Address [facility] Phone Number MAIN LAB [address] [place] [address] * BLOOD BANK SAMPLE HOLD (06/01/2018 6:35 PM MARKER MAKER) BB Sample hold IN LAB MAIN LAB Performing Organization Address [facility] Phone Number MAIN LAB [address] [place] [address] * BLOOD GASES, ARTERIAL (06/01/2018 6:35 PM MARKER MAKER) pH-Arterial 7.40 7.35 - 7.45 MAIN LAB pCO2-Arterial 46 (H) 35 - 45 MMHG MAIN LAB pO2-Arterial 118 (H) 80 - 100 MMHG MAIN LAB Base Excess-Arterial 3.2 MMOL/L MAIN LAB O2 Sat-Arterial 98.8 95 - 99 % MAIN LAB Ovrgonydgqj-EKX-Tbc 27.3 21 - 28 MMOL/L MAIN LAB Specimen Blood, arterial - Blood Performing Organization Address [facility] Phone Number MAIN LAB [address] [place] [address] * LACTIC ACID (BG - RAPID LACTATE) (06/01/2018 6:35 PM MARKER MAKER) Lactic Acid,BG 1.3 0.5 - 2.0 MMOL/L MAIN LAB Specimen Blood Performing Organization Address [facility] Phone Number MAIN LAB [address] [place] [address] * TSH WITH FREE T4 REFLEX (06/01/2018 6:31 PM MARKER MAKER) TSH 2.850 0.35 - 5.00 MCU/ML MAIN LAB Specimen Blood Performing Organization Address [facility] Phone Number MAIN LAB [address] [place] [address] * TROPONIN-I (06/01/2018 6:31 PM MARKER MAKER) Troponin-I 0.02 0.0 - 0.05 NG/ML MAIN LAB Specimen Blood Performing Organization Address [facility] Phone Number MAIN LAB [address] [place] [address] * BNP (B-TYPE NATRIURETIC PEPTI) (06/01/2018 6:31 PM MARKER MAKER) B Type Natriuretic 247.0 (H) 0 - 100 PG/ML MAIN LAB Peptide Specimen Blood Performing Organization Address [facility] Phone Number MAIN LAB [address] [place] [address] * PROCALCITONIN (06/01/2018 6:31 PM MARKER MAKER) Procalcitonin 0.22 (H) <0.10 NG/ML MAIN LAB Specimen Blood Performing Organization Address [facility] Phone Number MAIN LAB [address] [place] [address] * PHOSPHORUS (06/01/2018 6:31 PM MARKER MAKER) Phosphorus 3.6Comment: NOTE NEW REFERENCE 2.0 - 4.5 MG/DL MAIN LAB RANGES Specimen Blood Performing Organization Address [facility] Phone Number MAIN LAB [address] [place] [address] * MAGNESIUM (06/01/2018 6:31 PM MARKER MAKER) Magnesium 2.0 1.6 - 2.6 mg/dL [facility] MAIN LAB Specimen Blood Performing Organization Address [facility]/Zipcode Phone Number MAIN LAB [address] [place] [address] * COMPREHENSIVE METABOLIC PANEL (06/01/2018 6:31 PM MARKER MAKER) Sodium 140 137 - 147 MMOL/L [facility] MAIN LAB Potassium 3.8 3.5 - 5.1 MMOL/L [facility] MAIN LAB Chloride 103 98 - 110 MMOL/L [facility] MAIN LAB Glucose 303 (H) 70 - 100 MG/DL [facility] MAIN LAB Blood Urea Nitrogen 38 (H) 7 - 25 MG/DL [facility] MAIN LAB Creatinine 1.84 (H) 0.4 - 1.00 MG/DL [facility] MAIN LAB Calcium 9.0 8.5 - 10.6 MG/DL [facility] MAIN LAB Total Protein 6.5 6.0 - 8.0 G/DL [facility] MAIN LAB Total Bilirubin 1.0 0.3 - 1.2 MG/DL [facility] MAIN LAB Albumin 3.0 (L) 3.5 - 5.0 G/DL [facility] MAIN LAB Alk Phosphatase 51 25 - 110 U/L [facility] MAIN LAB AST (SGOT) 14 7 - 40 U/L [facility] MAIN LAB CO2 26 21 - 30 MMOL/L [facility] MAIN LAB ALT (SGPT) 6 (L) 7 - 56 U/L [facility] MAIN LAB Anion Gap 11 3 - 12 [facility] MAIN LAB eGFR Non 28 (L) >60 mL/min [facility] MAIN LAB Comment: The eGFR is not validated for use in drug dosing adjustments.Continue to use estimated creatinine clearance per dosing reference text.Please contact the Clinical Pharmacist for questions. eGFR 34 (L) >60 mL/min [facility] MAIN LAB Comment: The eGFR is not validated for use in drug dosing adjustments.Continue to use estimated creatinine clearance per dosing reference text.Please contact the Clinical Pharmacist for questions. Specimen Blood Performing Organization Address City/[facility]/Zipcode Phone Number MAIN LAB [address] [place] [address] * CBC AND DIFF (06/01/2018 6:31 PM MARKER MAKER) White Blood Cells 5.8 4.5 - 11.0 K/UL [facility] MAIN LAB RBC 2.77 (L) 4.0 - 5.0 M/UL [facility] MAIN LAB Hemoglobin 8.8 (L) 12.0 - 15.0 GM/DL [facility] MAIN LAB Hematocrit 26.0 (L) 36 - 45 % [facility] MAIN LAB MCV 93.7 80 - 100 FL [facility] MAIN LAB MCH 31.7 26 - 34 PG [facility] MAIN LAB MCHC 33.8 32.0 - 36.0 G/DL [facility] MAIN LAB RDW 16.7 (H) 11 - 15 % [facility] MAIN LAB Platelet Count 157 150 - 400 K/UL [facility] MAIN LAB MPV 8.2 7 - 11 FL [facility] MAIN LAB Neutrophils 92 (H) 41 - 77 % [facility] MAIN LAB Lymphocytes 6 (L) 24 - 44 % [facility] MAIN LAB Monocytes 2 (L) 4 - 12 % [facility] MAIN LAB Eosinophils 0 0 - 5 % [facility] MAIN LAB Basophils 0 0 - 2 % [facility] MAIN LAB Absolute Neutrophil Count 5.30 1.8 - 7.0 K/UL [facility] MAIN LAB Absolute Lymph Count 0.30 (L) 1.0 - 4.8 K/UL [facility] MAIN LAB Absolute Monocyte Count 0.10 0 - 0.80 K/UL [facility] MAIN LAB Absolute Eosinophil Count 0.00 0 - 0.45 K/UL [facility] MAIN LAB Absolute Basophil Count 0.00 0 - 0.20 K/UL [facility] MAIN LAB Specimen Blood Performing Organization Address City/State/Zipcode Phone Number [facility] [address] [place] [address] * GENERAL RAD CHEST EXTERNAL IMAGING (06/01/2018 12:15 AM MARKER MAKER) Narrative Performed At This order has been auto finalized and does not contain a result. * ECG-SCAN (06/01/2018 12:00 AM MARKER MAKER) Narrative Performed At Ordered by an unspecified provider. * ECG-SCAN (06/01/2018 12:00 AM MARKER MAKER) Narrative Performed At Ordered by an unspecified provider. * GENERAL RAD CHEST EXTERNAL IMAGING (06/01/2018 12:00 AM MARKER MAKER) Narrative Performed At This order has been auto finalized and does not contain a result. * GENERAL RAD CHEST EXTERNAL IMAGING (05/31/2018 12:15 AM MARKER MAKER) Narrative Performed At This order has been auto finalized and does not contain a result. * GENERAL RAD CHEST EXTERNAL IMAGING (05/31/2018 12:00 AM MARKER MAKER) Narrative Performed At This order has been auto finalized and does not contain a result. * GENERAL RAD CHEST EXTERNAL IMAGING (05/30/2018 2:00 AM MARKER MAKER) Narrative Performed At This order has been auto finalized and does not contain a result. * CT HEAD EXTERNAL IMAGING (05/30/2018 1:45 AM MARKER MAKER) Narrative Performed At This order has been auto finalized and does not contain a result. * CT L-SPINE EXTERNAL IMAGING (05/30/2018 1:30 AM MARKER MAKER) Narrative Performed At This order has been auto finalized and does not contain a result. * GENERAL RAD PELVIS EXTERNAL IMAGING (05/30/2018 1:15 AM MARKER MAKER) Narrative Performed At This order has been auto finalized and does not contain a result. * CT CHEST/ABD/PEL EXTERNAL IMAGING (05/30/2018 1:00 AM MARKER MAKER) Narrative Performed At This order has been auto finalized and does not contain a result. * GENERAL RAD CHEST EXTERNAL IMAGING (05/30/2018 12:45 AM MARKER MAKER) Narrative Performed At This order has been auto finalized and does not contain a result. * GENERAL RAD CHEST EXTERNAL IMAGING (05/30/2018 12:30 AM MARKER MAKER) Narrative Performed At This order has been auto finalized and does not contain a result. * CT HEAD EXTERNAL IMAGING (05/30/2018 12:15 AM MARKER MAKER) Narrative Performed At This order has been auto finalized and does not contain a result. * CT HEAD EXTERNAL IMAGING (05/30/2018 12:00 AM MARKER MAKER) Narrative Performed At This order has been auto finalized and does not contain a result. * US ABDOMEN EXTERNAL IMAGING (05/28/2018 12:00 AM MARKER MAKER) Narrative Performed At This order has been auto finalized and does not contain a result. in this encounter Visit Diagnoses Diagnosis Diagnosis unknown Other unknown and unspecified cause of morbidity or mortality Acute hypoxemic respiratory failure (HCC) Acute on chronic diastolic heart failure due to coronary artery disease (HCC) Atrial fibrillation with rapid ventricular response (HCC) Atrial fibrillation Essential hypertension Unspecified essential hypertension HCAP (healthcare-associated pneumonia) Pneumonia, organism unspecified Sepsis (HCC) Unspecified septicemia PAF (paroxysmal atrial fibrillation) (HCC) Atrial fibrillation Morbid obesity (HCC) Morbid obesity Chronic gastrointestinal bleeding Hemorrhage of gastrointestinal tract, unspecified HLD (hyperlipidemia) Other and unspecified hyperlipidemia Type 2 diabetes mellitus with circulatory disorder, without long-term 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 (HCC) in this encounter Admitting Diagnoses Diagnosis Sepsis (HCC) Unspecified septicemia in this encounter Administered Medications Action Date Dose Rate Site Medication Order MAR Action 06/08/2018 8:38 AM MARKER MAKER 500 mg acetaminophen (TYLENOL) tablet 500 mg Given 500 mg, Oral, ONCE, 1 dose, Thu06/08/18 at 0830, TOTAL ACETAMINOPHEN DOSE NOT TO EXCEED 4GM DAILY, 06/17/2018 8:28 AM MARKER MAKER 650 mg acetaminophen (TYLENOL) tablet 650 mg Given 650 mg, Oral, EVERY 6 HOURS PRN, Starting Thu06/09/18 at 0841, Until Thu06/18/18 at 1236, Pain non-opioid: may be used alone or in combination with opioid analgesia, TOTAL ACETAMINOPHEN DOSE NOT TO EXCEED 4GM DAILY, 650 mg Given 06/15/2018 8:23 PM MARKER MAKER 650 mg Given 06/15/2018 4:18 AM MARKER MAKER 06/12/2018 6:28 PM MARKER MAKER 30 mL acetaminophen/lidocaine/antacid DS(#) Given (GI COCKTAIL) 1:1:3 suspension 30 mL 30 mL, Oral, ONCE, 1 dose, 06/12/18 at 1830, 30mL (1:1:3)=192mg/6mL acetamin-6mL 2% vis lidocaine-18mL Antacid DS, 06/14/2018 1:48 PM MARKER MAKER 30 mL acetaminophen/lidocaine/antacid DS(#) Given (GI COCKTAIL) 1:1:3 suspension 30 mL 30 mL, Oral, ONCE, 1 dose, 06/14/18 at 1345, 30mL (1:1:3)=192mg/6mL acetamin-6mL 2% vis lidocaine-18mL Antacid DS, 06/14/2018 3:36 PM MARKER MAKER 500 mg acetaZOLAMIDE (DIAMOX) injection 500 mg Given 500 mg, Intravenous, ONCE, 1 dose, 06/14/18 at 1400 albuterol 0.5% (PROVENTIL; VENTOLIN) nebulizer solution 2.5 mg 2.5 mg, Inhalation, RT EVERY 4 HOURS PRN, Starting Thu06/15/18 at 1316, Until Thu06/18/18 at 1236, Signs and Symptoms of Acute Airway Obstruction, When administered by RT, will be per RT policy., 06/15/2018 12:49 PM MARKER MAKER 2.5 mg ALBUTEROL SULFATE 2.5 MG/0.5 ML IN NEBU Given (Cabinet Override) NOW, 1 dose, Thu06/15/18 at 1300, Created by cabinet override, Created by cabinet override, 06/03/2018 10:50 PM MARKER MAKER 0.25 mg ALPRAZolam (XANAX) tablet 0.25 mg Given 0.25 mg, Oral, ONCE, 1 dose, [facility] 06/03/18 at 2245 06/02/2018 7:24 AM MARKER MAKER 0.5 mg/min 17 mL/hr amiodarone (CORDARONE) 360 mg in Dose/Rate dextrose, iso-osm 200 mL infusion Verify 0.5-1 mg/min (16.6667-33.3333 mL/hr, rounded to 17-33 mL/hr) 200 mL, at 17-33 mL/hr, Intravenous, TITRATE DIRECTED , Starting Thu06/01/18 at 1830, Until Thu06/02/18 at 0918, SPECIAL TUBING REQUIRED Std conc=1.8mg/mL. Initiate infusion at 1mg/min for the first 6 hours, followed by 0.5mg/min maint rate., 0.5 mg/min 17 mL/hr Dose/Rate Change 06/02/2018 2:56 AM MARKER MAKER 1 mg/min 33 mL/hr Given - New Bag 06/02/2018 12:19 AM MARKER MAKER 06/18/2018 8:55 AM MARKER MAKER 81 mg aspirin chewable tablet 81 mg Given 81 mg, Oral, DAILY, First dose on Thu06/02/18 at 1030, Until Discontinued, Please crush/open and administer through tube if needed. , 81 mg Given 06/17/2018 8:28 AM MARKER MAKER 81 mg Given 06/16/2018 9:17 AM MARKER MAKER 06/04/2018 11:09 PM MARKER MAKER 0.5 mg ATROPINE 0.1 MG/ML IJ SYRG (Cabinet Given Override) NOW, 1 dose, Thu06/04/18 at 2300, Created by cabinet override, Created by cabinet override, 0.5 mg Given 06/04/2018 11:08 PM MARKER MAKER 06/02/2018 5:05 PM MARKER MAKER 10 mg bisacodyl (DULCOLAX) rectal suppository Given 10 mg 10 mg, Rectal, ONCE, 1 dose, Thu06/02/18 at 1600 06/09/2018 6:04 PM MARKER MAKER 10 mg bisacodyl (DULCOLAX) rectal suppository Given 10 mg 10 mg, Rectal, ONCE, 1 dose, Thu06/09/18 at 1115, Hold for loose stools, 06/10/2018 2:35 PM MARKER MAKER 10 mg bisacodyl (DULCOLAX) rectal suppository Given 10 mg 10 mg, Rectal, ONCE, 1 dose, [facility] 06/10/18 at 1430, Hold for loose stools, 06/04/2018 11:35 PM MARKER MAKER 1 g 110 mL/hr calcium gluconate 1 g in sodium chloride Given 0.9% (NS) 110 mL IVPB (MB+) 1 g, Intravenous, 110 mL, Administer over 1 Hours, ONCE, 1 dose, Thu06/04/18 at 2315 06/03/2018 3:53 AM MARKER MAKER 2 g 200 mL/hr cefepime (MAXIPIME) 2 g/100 ml Given iso-osmotic IVPB 2 g, Intravenous, 100 mL, Administer over 30 Minutes, EVERY 12 HOURS, First dose on Thu06/02/18 at 0400, Until Discontinued, HCAP, 2 g 200 mL/hr Given 06/02/2018 4:41 PM MARKER MAKER 2 g 200 mL/hr Given 06/02/2018 3:45 AM MARKER MAKER 06/06/2018 4:51 PM MARKER MAKER 1 g cefTRIAXone (ROCEPHIN) IVP 1 g Given 1 g, Intravenous, EVERY 24 HOURS, 4 doses, First dose on [place] 06/03/18 at 1500, Last dose on Thu06/06/18 at 1500, INSTR: IV PUSH -- RECONSTITUTE EACH 1 GM WITH 10 MLS 0.9% NACL , 1 g Given 06/05/2018 5:22 PM MARKER MAKER 1 g Given 06/04/2018 2:41 PM MARKER MAKER 06/18/2018 12:44 AM MARKER MAKER 10 mg cetirizine (ZYRTEC) tablet 10 mg Given 10 mg, Oral, DAILY, First dose on Thu06/18/18 at 0045, Until Discontinued 06/02/2018 8:15 AM MARKER MAKER 0.1 mcg/kg/hr 3.3 mL/hr dexmedetomidine (PRECEDEX) 400 mcg in Infusion sodium chloride 0.9% (NS) 100 mL IV Restarted infusion 0.2-1 mcg/kg/hr 132 kg (6.6-33 mL/hr) 100 mL, at 6.6-33 mL/hr, Intravenous, TITRATE DIRECTED , Starting Thu06/01/18 at 1845, Until Thu06/02/18 at 1352, -Initiate at 0.2 mcg/kg/hr and maintain for 30 minutes -Titrate to keep: RASS of 0 to -2 a.) Titrate infusion in increments of 0.1 mcg/kg/hour at 5 minute intervals until goal sedation level achieved or maintenance exceeds 1.0 mcg/kg/hr b.) If HR < 60 or SBP < 90 mmHg hold for 10 minutes then restart at dose reduced by 0.3 mcg/kg/min c.) Notify physician for persistent hypotension (SBP < 90 mmHg) or bradycardia (HR < 60) over 15 minutes d.) For breakthrough agitation NOTIFY PHYSICIAN and consider bolus of 1 mcg/kg over 20 min if HR and BP are acceptable. e.) Notify physician if maintenance exceeds 1 mcg/kg/hr -Taper agent continuously to lowest effective dose to achieve desired level of sedation keeping patient calm and able to participate in care. , Std conc=4mcg/ml NOTE: For weight-based dosing, use patient dosing weight. NOTE: This is a HIGH ALERT Medication., 0.2 mcg/kg/hr 6.6 mL/hr Dose/Rate Verify 06/02/2018 7:24 AM MARKER MAKER 0.2 mcg/kg/hr 6.6 mL/hr Dose/Rate Change 06/02/2018 6:11 AM MARKER MAKER 06/17/2018 8:24 PM MARKER MAKER 1 drop dextran 70/hypromellose (NATURAL BALANCE Given TEARS) 0.1/0.3 % ophthalmic solution 1 drop 1 drop, Both Eyes, FOUR TIMES DAILY, First dose on Thu06/09/18 at 1700, Until Discontinued 1 drop Given 06/16/2018 4:41 PM MARKER MAKER 1 drop Given 06/16/2018 12:07 PM MARKER MAKER 06/08/2018 3:47 AM MARKER MAKER 10 mL dextromethorphan/guaiFENesin Given (ROBITUSSIN-DM) oral syrup 10 mL 10 mL, Oral, EVERY 4 HOURS PRN, Starting Thu06/08/18 at 0314, Until Thu06/18/18 at 1236, Cough, Delivers Guaifenesin 100mg and Dextromethorphan 10mg per 5ml, 06/03/2018 8:39 AM MARKER MAKER 30 mg diltiazem (cardIZEM) tablet 30 mg Given 30 mg, Oral, EVERY 6 HOURS, First dose on Thu06/02/18 at 1915, Until Discontinued 30 mg Given 06/03/2018 4:01 AM MARKER MAKER 30 mg Given 06/02/2018 9:25 PM MARKER MAKER 06/04/2018 10:17 PM MARKER MAKER 30 mg diltiazem(#) (cardIZEM) solution 30 mg Given 30 mg, Oral, EVERY 6 HOURS, First dose on [place] 06/03/18 at 1500, Until Discontinued 30 mg Given 06/04/2018 2:41 PM MARKER MAKER 30 mg Given 06/04/2018 9:23 AM MARKER MAKER 06/15/2018 11:36 AM MARKER MAKER 25 mg diphenhydrAMINE (BENADRYL) injection 25 Given mg 25 mg, Intravenous, ONCE, 1 dose, 06/15/18 at 1100 06/05/2018 12:27 AM MARKER MAKER 1 mcg/kg/min 4.8 mL/hr DOPamine 400 mg/D5W 250 mL infusion (std Dose/Rate conc)(premade) Change 1-20 mcg/kg/min 127.2 kg (4.77-95.4 mL/hr, rounded to 4.8-95.4 mL/hr) 250 mL, at 4.8-95.4 mL/hr, Intravenous, TITRATE DIRECTED , Starting Thu06/04/18 at 2315, Until 06/05/18 at 0539, Initiate at 3 mcg/kg/min Titrate to keep: MAP > 60 Std Ylgq=9696 mcg/ml. For weight-based dosing, use patient dosing weight., 2 mcg/kg/min 9.5 mL/hr Dose/Rate Change 06/05/2018 12:01 AM MARKER MAKER 3 mcg/kg/min 14.3 mL/hr Given - New Bag 06/04/2018 11:30 PM MARKER MAKER 06/06/2018 9:43 PM MARKER MAKER 100 mg doxycycline (VIBRAMYCIN) tablet 100 mg Given 100 mg, Oral, TWICE DAILY, 10 doses, First dose on Thu06/02/18 at 0415, Last dose on 06/06/18 at 2100, Please crush/open and administer through tube if needed. , NURSING: Please educate patient and document:, Give 1 hour before or 2 hours after meals. If patient is receiving tube feedings, hold tube feedings 1 hour before and 2 hours after dose., Do not give within 2 hours of antacids, magnesium, calcium, iron, zinc, or vitamins containing these minerals., 100 mg Given 06/06/2018 9:36 AM MARKER MAKER 100 mg Given 06/05/2018 9:30 PM MARKER MAKER 06/12/2018 9:18 AM MARKER MAKER 200 mg fluconazole (DIFLUCAN) tablet 200 mg Given 200 mg, Oral, DAILY, 7 doses, First dose on Thu06/06/18 at 1145, Last dose on Thu06/12/18 at 0900 200 mg Given 06/11/2018 9:12 AM MARKER MAKER 200 mg Given 06/10/2018 9:21 AM MARKER MAKER 06/03/2018 8:38 AM MARKER MAKER 1 mg folic acid (FOLVITE) tablet 1 mg Given 1 mg, Oral, DAILY, First dose on Thu06/02/18 at 1030, Until Discontinued 06/18/2018 8:55 AM MARKER MAKER 1 mg folic acid (FOLVITE) tablet 1 mg Given 1 mg, Oral, DAILY, First dose on Thu06/06/18 at 1045, Until Discontinued 1 mg Given 06/17/2018 8:28 AM MARKER MAKER 1 mg Given 06/16/2018 9:17 AM MARKER MAKER 06/05/2018 7:53 AM MARKER MAKER 1 mg folic acid(#) (FOLVITE) solution 1 mg Given 1 mg, Oral, DAILY, First dose on Thu06/04/18 at 0900, Until Discontinued 1 mg Given 06/04/2018 9:23 AM MARKER MAKER 06/02/2018 12:08 AM MARKER MAKER 40 mg furosemide (LASIX) injection 40 mg Given 40 mg, Intravenous, ONCE, 1 dose, Thu06/01/18 at 2345, PROTECT FROM LIGHT, 06/02/2018 11:39 AM MARKER MAKER 40 mg furosemide (LASIX) injection 40 mg Given 40 mg, Intravenous, ONCE, 1 dose, Thu06/02/18 at 1115, PROTECT FROM LIGHT, 06/06/2018 2:43 PM MARKER MAKER 40 mg furosemide (LASIX) injection 40 mg Given 40 mg, 4 mL, Intravenous, ONCE, 1 dose, Thu06/06/18 at 1045, PROTECT FROM LIGHT, 06/07/2018 3:22 AM MARKER MAKER 40 mg furosemide (LASIX) injection 40 mg Given 40 mg, 4 mL, Intravenous, ONCE, 1 dose, 06/07/18 at 0245, PROTECT FROM LIGHT, 06/08/2018 3:47 AM MARKER MAKER 40 mg furosemide (LASIX) injection 40 mg Given 40 mg, 4 mL, Intravenous, ONCE, 1 dose, 06/08/18 at 0330, PROTECT FROM LIGHT, 06/14/2018 6:32 AM MARKER MAKER 40 mg furosemide (LASIX) injection 40 mg Given 40 mg, 4 mL, Intravenous, TWICE DAILY, First dose on [place] 06/10/18 at 1400, Until Discontinued, PROTECT FROM LIGHT, 40 mg Given 06/13/2018 1:36 PM MARKER MAKER 40 mg Given 06/13/2018 6:45 AM MARKER MAKER 06/15/2018 6:59 AM MARKER MAKER 40 mg furosemide (LASIX) injection 40 mg Given 40 mg, 4 mL, Intravenous, TWICE DAILY, First dose on 06/14/18 at 1400, Until Discontinued, PROTECT FROM LIGHT, 40 mg Given 06/14/2018 3:36 PM MARKER MAKER 06/05/2018 7:53 AM MARKER MAKER 40 mg furosemide (LASIX) oral solution 40 mg Given 40 mg, Oral, DAILY, First dose on Thu06/04/18 at 0900, Until Discontinued 40 mg Given 06/04/2018 9:23 AM MARKER MAKER 06/03/2018 8:39 AM MARKER MAKER 40 mg furosemide (LASIX) tablet 40 mg Given 40 mg, Oral, DAILY, First dose on Thu06/02/18 at 1130, Until Discontinued 06/05/2018 1:13 PM MARKER MAKER 40 mg furosemide (LASIX) tablet 40 mg Given 40 mg, Oral, ONCE, 1 dose, 06/05/18 at 1400 06/09/2018 9:01 AM MARKER MAKER 40 mg furosemide (LASIX) tablet 40 mg Given 40 mg, Oral, DAILY, First dose on 06/06/18 at 0900, Until Discontinued 40 mg Given 06/08/2018 8:40 AM MARKER MAKER 40 mg Given 06/07/2018 11:10 AM MARKER MAKER 06/10/2018 9:21 AM MARKER MAKER 60 mg furosemide (LASIX) tablet 60 mg Given 60 mg, Oral, DAILY, First dose on [place] 06/10/18 at 0900, Until Discontinued 06/18/2018 5:57 AM MARKER MAKER 80 mg furosemide (LASIX) tablet 80 mg Given 80 mg, Oral, TWICE DAILY, First dose on Thu06/16/18 at 1600, Until Discontinued 80 mg Given 06/17/2018 2:18 PM MARKER MAKER 80 mg Given 06/17/2018 6:38 AM MARKER MAKER 06/06/2018 9:48 PM MARKER MAKER 5,000 Units Abdominal Tissue heparin (porcine) PF syringe 5,000 Units Given 5,000 Units, Subcutaneous, EVERY 8 HOURS, First dose on Thu06/02/18 at 2200, Until Discontinued, NOTE: This is a HIGH ALERT Medication., 5,000 Units Abdomen:LLQ Given 06/06/2018 2:43 PM MARKER MAKER 5,000 Units Abdominal Tissue Given 06/06/2018 6:17 AM MARKER MAKER 06/18/2018 5:57 AM MARKER MAKER 5,000 Units Abdomen:RLQ heparin (porcine) PF syringe 5,000 Units Given 5,000 Units, Subcutaneous, EVERY 8 HOURS, First dose on Thu06/08/18 at 1600, Until Discontinued, NOTE: This is a HIGH ALERT Medication., 5,000 Units Abdomen:RLQ Given 06/17/2018 8:25 PM MARKER MAKER 5,000 Units Abdomen:LUQ Given 06/17/2018 2:16 PM MARKER MAKER 06/13/2018 2:14 AM MARKER MAKER 25 mg hydrOXYzine (ATARAX) tablet 25 mg Given 25 mg, Oral, ONCE, 1 dose, [place] 06/13/18 at 0215 06/10/2018 1:03 PM MARKER MAKER 50 mg hydrOXYzine (ATARAX) tablet 50 mg Given 50 mg, Oral, ONCE, 1 dose, [facility] 06/10/18 at 1300 06/02/2018 5:55 PM MARKER MAKER 2 Units Abdominal Tissue insulin aspart U-100 (NOVOLOG FLEXPEN) Given injection PEN 0-14 Units 0-14 Units, Subcutaneous, BEFORE MEALS AND AT BEDTIME, First dose on Thu06/02/18 at 1700, Until Discontinued, -POC glucose 140-180mg/dL at 07, 11, 17 administer 2 units insulin, at 21, 03* administer 0 units. -POC glucose 181-220mg/dL at , , 17 administer 4 units insulin, at 21, 03* administer 2 units. -POC glucose 221-260mg/dL at , administer 6 units insulin, at 21, * administer 4 units. -POC glucose 261-300mg/dL at administer 8 units insulin, at , * administer 6 units. -POC glucose 301-350mg/dL at administer 10 units insulin, at , * administer 8 units. -POC glucose 351-400mg/dL at administer 12 units insulin, at , * administer 10 units. -POC glucose >400mg/dL at administer 14 units insulin, at , * [...] request. DO NOT uncheck "Do not dispense", 06/02/2018 12:50 PM MARKER MAKER 2 Units Abdominal Tissue insulin aspart U-100 (NOVOLOG FLEXPEN) Given injection PEN 0-7 Units 0-7 Units, Subcutaneous, FIVE TIMES DAILY, First dose on Thu06/01/18 at 2100, Until Discontinued, -POC glucose 140-180mg/dL at administer [...] administer 4 units. -POC glucose 351-400mg/dL at administer 6 units insulin, at , * administer 5 units. -POC glucose >400mg/dL at administer 7 units insulin, at , * administer 6 units. *only if ordered 5x's [...] request. DO NOT uncheck "Do not dispense", 3 Units Abdominal Tissue Given 06/02/2018 8:02 AM MARKER MAKER 3 Units Arm, Left Given 06/02/2018 3:48 AM MARKER MAKER 06/15/2018 8:29 PM MARKER MAKER 1 Units Arm, Left insulin aspart U-100 (NOVOLOG FLEXPEN) Given injection PEN 0-7 Units 0-7 Units, Subcutaneous, BEFORE MEALS AND AT BEDTIME, First dose on [place] 06/03/18 at 0815, Until Discontinued, -POC glucose 140-180mg/dL at , , administer 1 unit insulin, at 21, 03* administer 0 units. -POC glucose 181-220mg/dL at , , administer 2 units insulin, at 21, 03* administer 1 unit. -POC glucose 221-260mg/dL at , , administer 3 units insulin, at 21, 03* administer 2 units. -POC glucose 261-300mg/dL at , , administer 4 units insulin, at 21, 03* administer 3 units. -POC glucose 301-350mg/dL at , , administer 5 units insulin, at 21, 03* administer 4 units. -POC glucose 351-400mg/dL at , , administer 6 units insulin, at 21, 03* administer 5 units. -POC glucose >400mg/dL at , , administer 7 units insulin, at 21, 03* [...] request. DO NOT uncheck "Do not dispense", 1 Units Abdominal Tissue Given 06/14/2018 9:42 PM MARKER MAKER 1 Units Arm, Left Given 06/14/2018 8:14 AM MARKER MAKER 06/18/2018 7:32 AM MARKER MAKER 14 Units Arm, Left insulin NPH (HUMULIN N KwikPen) Given injection PEN 14 Units 14 Units, Subcutaneous, DAILY, First dose on [place] 06/03/18 at 0815, Until Discontinued, Continue if NPO. Do not mix with other insulins. NOTE: This is a HIGH ALERT Medication., Dispense pens manually with initial order and then upon request. DO NOT uncheck "Do not dispense", 14 Units Abdomen:LLQ Given 06/17/2018 8:37 AM MARKER MAKER 14 Units Arm, Left Given 06/16/2018 9:19 AM MARKER MAKER ipratropium bromide (ATROVENT) 0.02 % nebulizer solution 0.5 mg 0.5 mg, Inhalation, RT EVERY 4 HOURS PRN, Starting Thu06/15/18 at 1316, Until Thu06/18/18 at 1236, RT PROTOCOL, When administered by RT, will be per RT policy., 06/15/2018 12:51 PM MARKER MAKER IPRATROPIUM BROMIDE 0.02 % IN SOLN Given (Cabinet Override) NOW, 1 dose, Thu06/15/18 at 1300, Created by cabinet override, Created by cabinet override, 06/04/2018 11:45 PM MARKER MAKER 500 mL 999 mL/hr lactated ringers infusion Given - New 1,000 mL, 500 mL, Intravenous, at 999 Bag mL/hr, BOLUS, 1 dose, Thu06/04/18 at 2315 06/03/2018 8:38 AM MARKER MAKER 20 g lactulose oral solution 20 g Given 20 g (30 mL), Oral, THREE TIMES DAILY, First dose on Thu06/02/18 at 1700, Until Discontinued, Titrate for 3-5 BMs or 500-800mL, 20 g Given 06/02/2018 9:28 PM MARKER MAKER 20 g Given 06/02/2018 5:55 PM MARKER MAKER 06/18/2018 5:57 AM MARKER MAKER 175 mcg levothyroxine (SYNTHROID) tablet 175 mcg Given 175 mcg, Oral, DAILY, First dose on Thu06/02/18 at 0700, Until Discontinued, Please crush/open and administer through tube if needed. , Give 1 hour before a meal. If patient is receiving tube feedings, hold tube feed 1hr before and 1hr after dose., 175 mcg Given 06/17/2018 6:38 AM MARKER MAKER 175 mcg Given 06/16/2018 6:49 AM MARKER MAKER 06/17/2018 4:57 PM MARKER MAKER 400 mg magnesium oxide (MAG-OX) tablet 400 mg Given 400 mg, Oral, TWICE DAILY, First dose on Thu06/02/18 at 1015, Until Discontinued, Please crush/open and administer through tube if needed. , Delivers 241.3mg elemental magnesium per tab, 400 mg Given 06/17/2018 11:49 AM MARKER MAKER 400 mg Given 06/16/2018 4:41 PM MARKER MAKER 06/06/2018 2:40 PM MARKER MAKER 400 mg magnesium oxide (MAG-OX) tablet 400 mg Given 400 mg, Oral, ONCE, 1 dose, [place] 06/06/18 at 1300, Delivers 241.3mg elemental magnesium per tab, 06/04/2018 6:29 AM MARKER MAKER 1 g 100 mL/hr magnesium sulfate 1 g/D5W 100 mL IVPB Given - New 1 g, Intravenous, 100 mL, Administer Bag over 1 Hours, ONCE, 1 dose, Thu06/04/18 at 0615, Each 1gm delivers 8.1 mEq Magnesium., 06/06/2018 9:39 PM MARKER MAKER 1 g 100 mL/hr magnesium sulfate 1 g/D5W 100 mL IVPB Given - New 1 g, Intravenous, 100 mL, Administer Bag over 1 Hours, ONCE, 1 dose, [place] 06/06/18 at 1915, Each 1gm delivers 8.1 mEq Magnesium., 06/10/2018 10:37 AM MARKER MAKER 1 g 100 mL/hr magnesium sulfate 1 g/D5W 100 mL IVPB Given - New 1 g, Intravenous, 100 mL, Administer Bag over 1 Hours, EVERY 1 HOUR FOR 2 DOSES, 2 doses, First dose on [place] 06/10/18 at 0800, Last dose on Thu06/10/18 at 0900, Each 1gm delivers 8.1 mEq Magnesium., 1 g 100 mL/hr Given - New Bag 06/10/2018 9:20 AM MARKER MAKER 06/13/2018 2:51 PM MARKER MAKER 1 g 100 mL/hr magnesium sulfate 1 g/D5W 100 mL IVPB Given - New 1 g, Intravenous, 100 mL, Administer Bag over 1 Hours, EVERY 1 HOUR FOR 2 DOSES, 2 doses, First dose on Thu06/13/18 at 1300, Last dose on Thu06/13/18 at 1400, Each 1gm delivers 8.1 mEq Magnesium., 1 g 100 mL/hr Given - New Bag 06/13/2018 1:36 PM MARKER MAKER 06/14/2018 3:36 PM MARKER MAKER 1 g 100 mL/hr magnesium sulfate 1 g/D5W 100 mL IVPB Given - New 1 g, Intravenous, 100 mL, Administer Bag over 1 Hours, ONCE, 1 dose, Thu06/14/18 at 1430, Each 1gm delivers 8.1 mEq Magnesium., 06/15/2018 9:31 AM MARKER MAKER 1 g 100 mL/hr magnesium sulfate 1 g/D5W 100 mL IVPB Given - New 1 g, Intravenous, 100 mL, Administer Bag over 1 Hours, ONCE, 1 dose, Thu06/15/18 at 0730, Each 1gm delivers 8.1 mEq Magnesium., 06/17/2018 9:26 AM MARKER MAKER 1 g 100 mL/hr magnesium sulfate 1 g/D5W 100 mL IVPB Given - New 1 g, Intravenous, 100 mL, Administer Bag over 1 Hours, EVERY 1 HOUR FOR 2 DOSES, 2 doses, First dose on Thu06/17/18 at 0800, Last dose on Thu06/17/18 at 0900, Each 1gm delivers 8.1 mEq Magnesium., 1 g 100 mL/hr Given - New Bag 06/17/2018 8:33 AM MARKER MAKER 06/17/2018 8:25 PM MARKER MAKER 3 mg melatonin tablet 3 mg Given 3 mg, Oral, AT BEDTIME DAILY, First dose on Thu06/14/18 at 2100, Until Discontinued 3 mg Given 06/16/2018 8:25 PM MARKER MAKER 3 mg Given 06/15/2018 8:23 PM MARKER MAKER 06/13/2018 7:54 PM MARKER MAKER 5 mg metoprolol (LOPRESSOR) injection 5 mg Given 5 mg, Intravenous, ONCE, 1 dose, [place] 06/13/18 at 1915, Hold for heart rate < 60 bpm or systolic BP < 90 PROTECT FROM LIGHT, 06/03/2018 8:39 AM MARKER MAKER 50 mg metoprolol tartrate (LOPRESSOR) tablet Given 50 mg 50 mg, Oral, TWICE DAILY, First dose on Thu06/02/18 at 1030, Until Discontinued, Hold for heart rate < 60 bpm or systolic BP < 90, 50 mg Given 06/02/2018 9:27 PM MARKER MAKER 50 mg Given 06/02/2018 10:10 AM MARKER MAKER 06/18/2018 8:55 AM MARKER MAKER 50 mg metoprolol tartrate (LOPRESSOR) tablet Given 50 mg 50 mg, Oral, TWICE DAILY, First dose on 06/05/18 at 2200, Until Discontinued, Hold for heart rate < 60 bpm or systolic BP < 90, 50 mg Given 06/17/2018 8:26 PM MARKER MAKER 50 mg Given 06/17/2018 8:28 AM MARKER MAKER 06/05/2018 7:53 AM MARKER MAKER 50 mg metoprolol(#) (LOPRESSOR) solution 50 mg Given 50 mg, Oral, TWICE DAILY, First dose on [place] 06/03/18 at 2100, Until Discontinued, Hold for heart rate < 60 bpm or systolic BP < 90, 50 mg Given 06/04/2018 10:18 PM MARKER MAKER 50 mg Given 06/04/2018 9:24 AM MARKER MAKER 06/08/2018 5:54 AM MARKER MAKER 4 mg ondansetron (ZOFRAN) injection 4 mg Given 4 mg, Intravenous, EVERY 6 HOURS PRN, Starting Thu06/08/18 at 0549, Until Thu06/08/18 at 1501, Nausea/Vomiting Injectable 06/01/2018 9:01 PM MARKER MAKER 40 mg pantoprazole (PROTONIX) injection 40 mg Given 40 mg, Intravenous, TWICE DAILY, First dose on Thu06/01/18 at 2000, Until Discontinued 06/17/2018 8:25 PM MARKER MAKER [address] (PROTONIX) tablet 40 mg Given 40 mg, Oral, TWICE DAILY, First dose on Thu06/05/18 at 2200, Until Discontinued, Do not crush or chew tablet., 40 mg Given 06/17/2018 11:48 AM MARKER MAKER 40 mg Given 06/16/2018 8:25 PM MARKER MAKER 06/05/2018 7:53 AM MARKER MAKER 40 mg pantoprazole(#) (PROTONIX) suspension 40 Given mg 40 mg, Oral, TWICE DAILY, First dose on Thu06/02/18 at 1100, Until Discontinued 40 mg Given 06/04/2018 10:21 PM MARKER MAKER 40 mg Given 06/04/2018 10:04 AM MARKER MAKER 06/02/2018 9:39 AM MARKER MAKER 5 Diluted mL perflutren lipid microspheres (DEFINITY) Given injection 1-20 Diluted mL 1-20 Diluted mL, Intravenous, ONCE, 1 dose, Thu06/02/18 at 0800, NOTE: This is a HIGH ALERT Medication., MAC Procedure Area Only - Medications 06/01/2018 9:51 PM MARKER MAKER 4.5 g 200 mL/hr piperacillin/tazobactam (ZOSYN) 4.5 g in Given sodium chloride 0.9% (NS) 100 mL IVPB (MB+) 4.5 g, Intravenous, at 200 mL/hr, EVERY 6 HOURS, First dose on Thu06/01/18 at 2145, Until Discontinued, HCAP/Septic Shock, polyethylene glycol 3350 (MIRALAX) packet 17 g 17 g (1 packet), Oral, TWICE DAILY PRN, Starting Thu06/09/18 at 1249, Until Thu06/18/18 at 1236, Constipation PO, 8.5 GRAMS=0.5 PACKET 17 GRAMS=1 PACKET 34 GRAMS=2 PACKETS, 06/05/2018 7:52 AM MARKER MAKER 20 mEq potassium chloride oral solution 20 mEq Given 20 mEq, Oral, DAILY, First dose on Thu06/03/18 at 1245, Until Discontinued, - Tablet may be dispersed in water. Place tab in 30 mL of water for 40-60 seconds. - Gently swirl until fully dispersed. If particles remain after admin, add small amount of water and admin remaining content. - DO NOT CRUSH. Tablet may be split in half. , 20 mEq Given 06/04/2018 9:23 AM MARKER MAKER 06/04/2018 6:31 AM MARKER MAKER 80 mEq potassium chloride oral solution 80 mEq Given 80 mEq, Oral, ONCE, 1 dose, Thu06/04/18 at 0615 06/03/2018 8:39 AM MARKER MAKER 20 mEq potassium chloride SR (K-DUR) tablet 20 Given mEq 20 mEq, Oral, DAILY, First dose on Thu06/02/18 at 1030, Until Discontinued, - Tablet may be dispersed in water. Place tab in 30 mL of water for 40-60 seconds. - Gently swirl until fully dispersed. If particles remain after admin, add small amount of water and admin remaining content. - DO NOT CRUSH. Tablet may be split in half. , 06/17/2018 11:48 AM MARKER MAKER 20 mEq potassium chloride SR (K-DUR) tablet 20 Given mEq 20 mEq, Oral, DAILY, First dose on Thu06/06/18 at 1245, Until Discontinued, - Tablet may be dispersed in water. Place tab in 30 mL of water for 40-60 seconds. - Gently swirl until fully dispersed. If particles remain after admin, add small amount of water and admin remaining content. - DO NOT CRUSH. Tablet may be split in half. , 20 mEq Given 06/16/2018 12:07 PM MARKER MAKER 20 mEq Given 06/15/2018 11:33 AM MARKER MAKER 06/06/2018 9:43 PM MARKER MAKER 40 mEq potassium chloride SR (K-DUR) tablet 40 Given mEq 40 mEq, Oral, ONCE, 1 dose, [place] 06/06/18 at 1915, Do NOT break or crush tablet , 06/15/2018 11:35 AM MARKER MAKER 10 mg prochlorperazine (COMPAZINE) injection Given 10 mg 10 mg, Intravenous, ONCE, 1 dose, Thu06/15/18 at 1100, PROTECT FROM LIGHT -- May be given undiluted, or each 5mg may be diluted with 9 mL of NS to facilitate titration., 06/09/2018 7:20 AM [employer] 5 mg prochlorperazine maleate (COMPAZINE) Given tablet 5-10 mg 5-10 mg, Oral, EVERY 6 HOURS PRN, Starting Thu06/08/18 at 1205, Until Thu06/18/18 at 1236, Nausea/Vomiting PO 5 mg Given 06/08/2018 12:42 PM [employer] 06/08/2018 9:08 PM [employer]ER [employer] 2 tablets senna (SENOKOT) tablet 2 tablet Given 2 tablet, Oral, AT BEDTIME DAILY, First dose on Thu06/08/18 at 2100, Until Discontinued, Hold for loose stools, 06/18/2018 8:55 AM MARKER MAKER 1 tablet senna/docusate (SENOKOT-S) tablet 1 Given tablet 1 tablet, Oral, TWICE DAILY, First dose on Thu06/15/18 at 2100, Until Discontinued, Hold for loose stools, 1 tablet Given 06/17/2018 8:25 PM MARKER MAKER 1 tablet Given 06/17/2018 8:28 AM MARKER MAKER 06/15/2018 9:32 AM MARKER MAKER 2 tablets senna/docusate (SENOKOT-S) tablet 2 Given tablet 2 tablet, Oral, TWICE DAILY, First dose on Thu06/09/18 at 2100, Until Discontinued, Hold for loose stools, 2 tablets Given 06/14/2018 9:43 PM MARKER MAKER 2 tablets Given 06/14/2018 8:13 AM MARKER MAKER 06/15/2018 12:36 AM MARKER MAKER 80 mg simethicone (MYLICON) chew tablet 80 mg Given 80 mg, Oral, EVERY 6 HOURS PRN, Starting Thu06/15/18 at 0010, Until Thu06/18/18 at 1236, Flatulence 06/10/2018 9:53 PM MARKER MAKER 2 sprays sodium chloride (SEA MIST) 0.65 % nasal Given spray 1-2 spray 1-2 spray, Each Nostril, NEEDED, Starting Thu06/09/18 at 1621, Until Thu06/18/18 at 1236, Congestion 2 sprays Given 06/09/2018 9:49 PM MARKER MAKER 06/17/2018 8:25 PM MARKER MAKER 2 mg tiZANidine (ZANAFLEX) tablet 4 mg Given 4 mg, Oral, AT BEDTIME DAILY, First dose on Thu06/04/18 at 2100, Until Discontinued 4 mg Given 06/16/2018 8:25 PM MARKER MAKER 4 mg Given 06/15/2018 8:23 PM MARKER MAKER 06/17/2018 8:35 PM MARKER MAKER 50 mg traMADol (ULTRAM) tablet 50 mg Given 50 mg, Oral, EVERY 6 HOURS PRN, Starting Thu06/04/18 at 0636, Until Thu06/18/18 at 1236, Pain PO 50 mg Given 06/10/2018 9:49 PM MARKER MAKER 50 mg Given 06/09/2018 9:48 PM MARKER MAKER 06/03/2018 10:15 AM MARKER MAKER 1,250 mg 275 mL/hr vancomycin (VANCOCIN) 1,250 mg in Given - New dextrose 5% (D5W) IVPB Bag 1,250 mg, Intravenous, 275 mL, Administer over 60 Minutes, ONCE, 1 dose, [facility] 06/03/18 at 1000, Note Pharmacokinetic Monitoring: Please record infusion start time (Action=Given) and stop time (Action=Completed) of dose when blood levels are drawn., 06/02/2018 12:08 AM MARKER MAKER 1,750 mg 357 mL/hr vancomycin (VANCOCIN) 1,750 mg in Given - New dextrose 5% (D5W) IVPB Bag 1,750 mg, Intravenous, 535 mL, Administer over 90 Minutes, ONCE, 1 dose, Thu06/02/18 at 0000, Note Pharmacokinetic Monitoring: Please record infusion start time (Action=Given) and stop time (Action=Completed) of dose when blood levels are drawn., 06/04/2018 11:03 AM MARKER MAKER 15 mL vitamins, multi w/iron (CERTAVITE) oral Given solution 15 mL 15 mL, Per [employer], DAILY, First dose on [place] 06/03/18 at 1700, Until Discontinued 15 mL Given 06/03/2018 6:15 PM MARKER MAKER 06/18/2018 8:55 AM MARKER MAKER 1 tablet vitamins, multiple tablet 1 tablet Given 1 tablet, Oral, DAILY, First dose on [place] 06/06/18 at 0900, Until Discontinued 1 tablet Given 06/17/2018 8:28 AM MARKER MAKER 1 tablet Given 06/16/2018 9:17 AM MARKER MAKER in this encounter
--- OUTSIDE RECORDS SUMMARY | 2018-06-18 13:32 | XMS REPORT | Encounter Summary ---
Author Author [facility] Organization [facility] Address Unknown Phone Unavailable Care Team Providers Care Database Analyst Name Role Phone Carla Wilson MD PCP Naima Field MD Unavailable Winine Jorge MD Unavailable Encounter Details Care Team Description Date Type Department 06/01/2018 Hospital [facility] Radiology Main Hospital [facility] [address] [place] [address] Social History Date Tobacco Use Types Packs/Day [...] 3 tablet tablet by mouth every morning. [id number]-vkkizkdvo-M-doug Take 500 mg 0 anese 500-400-2-0.33 mg [...] 6 hours as needed for Pain. 04/08/2018 06/18/2018 diltiazem CD (CARDIZEM Take one 90 capsule 3 CD) 180 mg capsule capsule by mouth daily. 06/18/2018 furosemide (LASIX) 40 mg Take 40 mg by 0 tablet mouth every morning. 06/02/2018 GLUCOSAMINE Take 1 tablet 0 HCL/CHONDROITIN CALDERON by mouth (GLUCOSAMINE-CHONDROITIN twice daily. PO) 04/08/2018 06/09/2018 magnesium oxide (MAG-OX) Take one 180 tablet 3 400 mg (241.3 mg tablet by magnesium) tablet mouth twice daily. 06/18/2018 metoprolol tartrate Take 100 mg 0 (LOPRESSOR) 100 mg tablet by mouth twice daily. 02/27/2018 06/18/2018 senna/docusate Take two 20 tablet 0 (SENOKOT-S) 8.6/50 mg tablets by tablet mouth twice daily. 04/08/2018 06/09/2018 torsemide(+) (DEMADEX) 20 Take two 30 tablet 3 mg tablet tablets by mouth daily. 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 in this encounter Visit Diagnoses Not on filein this encounter
--- OUTSIDE RECORDS SUMMARY | 2018-06-18 13:32 | XMS REPORT | Encounter Summary ---
Author Author [facility] Organization [facility] Address Unknown Phone Unavailable Care Team Providers Care Informatica Name Role Phone Carla Wilson MD PCP Naima Field MD Unavailable Winnie Jorge MD Unavailable Encounter Details Care Team Description Date Type Department 06/01/2018 Hospital [facility] Radiology Main Hospital [facility] [address] [place] [address] Social History Date Tobacco Use Types Packs/Day [...] 3 tablet tablet by mouth every morning. 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
--- OUTSIDE RECORDS SUMMARY | 2018-06-18 13:32 | XMS REPORT | Encounter Summary ---
Author Author [facility] Address Unknown Phone Unavailable Care Team Providers Care High School Music Teacher Name Role Phone Carla Wilson MD PCP Naima Field MD Unavailable Winnie Jorge MD Unavailable Encounter Details Care Team Description Date Type Department 05/31/2018 Hospital [facility] Radiology Main Hospital [facility] [address] [place] [address] Social History Date Tobacco Use Types Packs/Day [...] 1 mg by 0 tablet mouth daily. 02/27/2018 insulin aspart U-100 Inject four [...] as directed daily as needed (For Hemorrhoids). tiZANidine (ZANAFLEX) 4 Take 4 mg by 0 mg tablet mouth at bedtime daily. 02/27/2018 traMADol (ULTRAM) 50 mg Take one 30 tablet 0 tablet tablet by mouth every 6 hours as needed for Pain. 04/08/2018 06/18/2018 diltiazem CD (CARDIZEM Take one 90 capsule 3 CD) 180 mg capsule capsule by mouth daily. 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
--- OUTSIDE RECORDS SUMMARY | 2018-06-18 13:32 | XMS REPORT | Encounter Summary ---
Author Author [facility] Organization [facility] Address Unknown Phone Unavailable Care Team Providers Care Skiver Box Toe Name Role Phone Carla Wilson MD PCP Naima Field MD Unavailable Winnie Jorge MD Unavailable Encounter Details Care Team Description Date Type Department 05/31/2018 Hospital [facility] Hospital Radiology Main Hospital [facility] [address] [place] [address] Social History Date Tobacco Use Types Packs/Day [...] 05/31/2018 Diagnosis unknown EXTERNAL IMAGING 12:15 AM VP STRATEGIC PARTNERSHIPS ECG-SCAN 05/31/2018 12:00 AM VP STRATEGIC PARTNERSHIPS in this encounter Results * ECG-SCAN (05/31/2018 12:00 AM VP STRATEGIC PARTNERSHIPS) Narrative Performed At Ordered by an unspecified provider. in this encounter Visit Diagnoses Not on filein this encounter
--- OUTSIDE RECORDS SUMMARY | 2018-06-18 13:32 | XMS REPORT | Encounter Summary ---
Author Author [facility] Organization [facility] Address Unknown Phone Unavailable Care Team Providers Care Steamship Agent Name Role Phone Carla Wilson MD PCP Naima Field MD Unavailable Winnie Jorge MD Unavailable Encounter Details Care Team Description Date Type Department 05/30/2018 Hospital [facility] Hospital Radiology Main Hospital [facility] [address] [place] [address] Social History Date Tobacco Use Types Packs/Day [...] Date/Time Associated Diagnosis GENERAL RAD CHEST Routine 05/30/2018 Diagnosis unknown EXTERNAL IMAGING 2: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
--- OUTSIDE RECORDS SUMMARY | 2018-06-18 13:33 | XMS REPORT | Encounter Summary ---
Author Author [facility] Organization [facility] Address Unknown Phone Unavailable Care Team Providers Care Dye Reel Operator Helper Name Role Phone Carla Wilson MD PCP Naima Field MD Unavailable Winnie Jorge MD Unavailable Encounter Details Care Team Description Date Type Department 05/30/2018 Hospital [facility] Hospital Radiology Main Hospital [facility] [address] [place] [address] Social History Date Tobacco Use Types Packs/Day [...] Comments Procedure Name Priority Date/Time Associated Diagnosis CT L-SPINE EXTERNAL Routine 05/30/2018 Diagnosis unknown IMAGING 1:30 AM INDUSTRIAL MAINTENANCE TECH in this encounter Visit Diagnoses Not on filein this encounter
--- OUTSIDE RECORDS SUMMARY | 2018-06-18 13:33 | XMS REPORT | Encounter Summary ---
Author Author [facility] Organization [facility] Address Unknown Phone Unavailable Care Team Providers Care Supervisor Paste Mixing Name Role Phone Carla Wilson MD PCP Naima Field MD Unavailable Winnie Jorge MD Unavailable Encounter Details Care Team Description Date Type Department 05/30/[address] [facility] Hospital Radiology Main Hospital [facility] [address] [place] [address] Social History Date Tobacco Use Types Packs/Day [...] Name Priority Date/Time Associated Diagnosis GENERAL RAD PELVIS Routine 05/30/2018 Diagnosis unknown EXTERNAL IMAGING 1:15 AM METAPHYSICS TEACHER in this encounter Visit Diagnoses Not on filein this encounter
--- OUTSIDE RECORDS SUMMARY | 2018-06-18 13:33 | XMS REPORT | Encounter Summary ---
Author Author [facility] Organization [facility] Address Unknown Phone Unavailable Care Team Providers Care Color Matcher Name Role Phone Carla Wilson MD PCP Naima Field MD Unavailable Winnie Jorge MD Unavailable Encounter Details Care Team Description Date Type Department 05/30/2018 Hospital [facility] Hospital Radiology Main Hospital [facility] [address] [place] [address] Social History Date Tobacco Use Types Packs/Day [...] Procedure Name Priority Date/Time Associated Diagnosis CT CHEST/ABD/PEL EXTERNAL Routine 05/30/2018 Diagnosis unknown IMAGING 1:00 AM DIRECTOR QUALITY SYSTEMS in this encounter Visit Diagnoses Not on filein this encounter
--- OUTSIDE RECORDS SUMMARY | 2018-06-18 13:33 | XMS REPORT | Encounter Summary ---
Author Author [facility] Organization [facility] Address Unknown Phone Unavailable Care Team Providers Care Attendant Child Activity Name Role Phone Carla Wilson MD PCP Naima Field MD Unavailable Winnie Jorge MD Unavailable Encounter Details Care Team Description Date Type Department 05/30/2018 Hospital [facility] Hospital Radiology Main Hospital [facility] [address] [place] [address] Social History Date Tobacco Use Types Packs/Day [...] Procedure Name Priority Date/Time Associated Diagnosis CT HEAD EXTERNAL IMAGING Routine 05/30/2018 Diagnosis unknown 1:45 AM TECHNOLOGY DIRECTOR in this encounter Visit Diagnoses Not on filein this encounter
--- OUTSIDE RECORDS SUMMARY | 2018-06-18 13:33 | XMS REPORT | Encounter Summary ---
Author Author [facility] Organization [facility] Address Unknown Phone Unavailable Care Team Providers Care Billiard Player Name Role Phone Carla Wilson MD PCP Naima Field MD Unavailable Winnie Jorge MD Unavailable Encounter Details Care Team Description Date Type Department 05/30/2018 Hospital [facility] Hospital Radiology Main Hospital [facility] [address] [place] [address] Social History Date Tobacco Use Types Packs/Day [...] 05/30/2018 Diagnosis unknown EXTERNAL IMAGING 12:45 AM SEWING MACHINE REPAIRER HELPER in this encounter Visit Diagnoses Not on filein this encounter
--- OUTSIDE RECORDS SUMMARY | 2018-06-18 13:34 | XMS REPORT | Encounter Summary ---
Author Author [facility] Organization [facility] Address Unknown Phone Unavailable Care Team Providers Care Tail Board Worker Name Role Phone Carla Wilson MD PCP Naima Field MD Unavailable Winnie Jorge MD Unavailable Encounter Details Care Team Description Date Type Department 05/30/2018 Hospital [facility] Hospital Radiology Main Hospital [facility] [address] [place] [address] Social History Date Tobacco Use Types Packs/Day [...] IMAGING Routine 05/30/2018 Diagnosis unknown 12:15 AM UNDERWEAR TRIMMER in this encounter Visit Diagnoses Not on filein this encounter
--- OUTSIDE RECORDS SUMMARY | 2018-06-18 13:34 | XMS REPORT | Encounter Summary ---
Author Author [facility] Organization [facility] Address Unknown Phone Unavailable Care Team Providers Care Group Marketing Vp Name Role Phone Carla Wilson MD PCP Naima Field MD Unavailable Winnie Jorge MD Unavailable Reason for Visit * Reason Comments Results Chest X-ray Encounter Details Care Team Description Date Type Department Dannielle Covington MD [address] [place] [address] Results (Chest X-ray) 05/03/2018 Telephone [facility] Physicians - Internal Medicine [facility] [address] [place] [address] Social History Date Tobacco Use [...] Fanny Pastrana RN - 05/04/2018 3:52 PM HOSIERY LOOPER Called pt. Informed her of Social work assistance and offered their contact info. Per pt, she has a older adult social work specialist locally and is currently helping her get [...] call GI office if other problems arise. ERY LOOPER * Telephone Encounter - Dannielle Covington MD - 05/04/2018 9:10 AM HOSIERY LOOPER Thanks She needs to see older adult social work specialist as well. ERY LOOPER * Telephone Encounter - Fanny Pastrana RN - 05/03/2018 2:32 PM HOSIERY LOOPER Was informed by Dr. Erazo to mana [...] Routing to Dr. Covington/Dr. Erazo as FYI. ERY LOOPER * Telephone Encounter - Fanny Pastrana RN - 05/03/2018 1:23 PM HOSIERY LOOPER Pt called and inquired on Chest X-ray [...] if anything further needs to be pursued. ERY LOOPER in this encounter Plan of Treatment Not on fileas of this encounter Visit Diagnoses Not on filein this encounter
--- OUTSIDE RECORDS SUMMARY | 2018-06-18 13:34 | XMS REPORT | Encounter Summary ---
Author Author [facility] Organization [facility] Address Unknown Phone Unavailable Care Team Providers Care Radiology Manager Name Role Phone Carla Wilson MD PCP Naima Field MD Unavailable Winnie Jorge MD Unavailable Encounter Details Care Team Description Date Type Department 05/28/2018 Hospital [facility] Hospital Radiology Main Hospital [facility] [address] [place] [address] Social History Date Tobacco Use Types Packs/Day [...] Comments Procedure Name Priority Date/Time Associated Diagnosis US ABDOMEN EXTERNAL Routine 05/28/2018 Diagnosis unknown IMAGING 12:00 AM ARTS ADMINISTRATOR in this encounter Visit Diagnoses Not on filein this encounter
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
--- OUTSIDE RECORDS SUMMARY | 2018-06-18 13:34 | XMS REPORT | Encounter Summary ---
Author Author [facility] Organization [facility] Address Unknown Phone Unavailable Care Team Providers Care President Celebrity Acquistion Name Role Phone Carla Wilson MD PCP Naima Field MD Unavailable Winnie Jorge MD Unavailable Encounter Details Care Team Description Date Type Department 05/30/2018 Hospital [facility] Hospital Radiology Main Hospital [facility] [address] [place] [address] Social History Date Tobacco Use Types Packs/Day [...] IMAGING Routine 05/30/2018 Diagnosis unknown 12:00 AM LINE PREP COOK ECG-SCAN 05/30/2018 12:00 AM LINE PREP COOK in this encounter Results * ECG-SCAN (05/30/2018 12:00 AM LINE PREP COOK) Narrative Performed At Ordered by an unspecified provider. in this encounter Visit Diagnoses Not on filein this encounter
--- OUTSIDE RECORDS SUMMARY | 2018-06-18 13:34 | XMS REPORT | Encounter Summary ---
Author Author [facility] Organization [facility] Address Unknown Phone Unavailable Care Team Providers Care Animal Cruelty Investigator Name Role Phone Carla Wilson MD PCP Naima Field MD Unavailable Winnie Jorge MD Unavailable Encounter Details Care Team Description Date Type Department Lynette Diana MD [address] [place] [address] 05/04/2018 [facility] 1st FLOOR [address] [place] [address] Social History Date Tobacco Use [...] * Edy Sheridan - 05/04/2018 4:08 PM TESTER SOUND Requested labs from via [facility] SOUND in this encounter Plan of Treatment Not on fileas of this encounter Visit Diagnoses Not on filein this encounter
--- OUTSIDE RECORDS SUMMARY | 2018-06-18 13:34 | XMS REPORT | Encounter Summary ---
Author Author [facility] Organization [facility] Address Unknown Phone Unavailable Care Team Providers Care Rehabilitation Team Lead Name Role Phone Carla Wilson MD PCP Naima Field MD Unavailable Winnie Jorge MD Unavailable Encounter Details Care Team Description Date Type Department 05/30/2018 Hospital [facility] Hospital Radiology Main Hospital [facility] [address] [place] [address] Social History Date Tobacco Use Types Packs/Day [...] 05/30/2018 Diagnosis unknown EXTERNAL IMAGING 12:30 AM ATTENDANT [facility] in this encounter Visit Diagnoses Not on filein this encounter
--- OUTSIDE RECORDS SUMMARY | 2018-06-18 13:35 | XMS REPORT | Encounter Summary ---
Author Author [facility] Organization [facility] Address Unknown Phone Unavailable Care Team Providers Care Instructional Facilitator Name Role Phone Carla Wilson MD PCP Naima Field MD Unavailable Winnie Jorge MD Unavailable Reason for Referral * Consult, Test & Treat (Urgent) Referred By Contact Referred To Contact Status Reason Specialty Diagnoses / Procedures Dannielle Covington MD [address] [place] [address] [facility] Gen Hepatology [facility] [address]st fl [address] [place] [address] Authorized Specialty Services Hepatology Diagnoses Required Dyspnea, [...] dysplasia; Anemia, unspecified type 04/28/2018 Office Visit [facility] Physicians - Internal Medicine [facility] [address] [place] [address] Social History Date Tobacco Use Types Packs/Day [...] Taken Vital Sign Reading 04/28/2018 3:22 PM PANEL SEWER Blood Pressure 101/58 04/28/2018 3:22 PM PANEL SEWER Pulse 65 04/28/2018 3:22 PM PANEL SEWER Temperature 36.4 C (97.5 F) 04/28/2018 3:22 PM PANEL SEWER Respiratory Rate 16 - Oxygen Saturation - - Inhaled Oxygen - Concentration 04/28/2018 3:22 PM PANEL SEWER Weight 114.2 kg (251 lb 12.8 oz) 04/28/2018 3:22 PM PANEL SEWER Height 162.6 cm (5' 4") 04/28/2018 3:22 PM PANEL SEWER Body Mass Index 43.22 in this encounter [...] Fanny Pastrana RN - 04/28/2018 3:30 PM PANEL SEWER Please call [address]s nurse at [phone] if you have any questions or concerns. General Instructions: To have a medication refilled: Please use the [facility] Refill request or contact your pharmacy directly to request medication refills. Please allow 72 hours. [facility] Lab is on the 1st floor. It is open from 7 am-6pm Thursday-Thursday and 6:30am-7pm on Mondays, and 7 am - Noon on Saturdays [facility] Lab is located on the 2nd floor and is open 8 am-5 pm Thursday-Thursday [facility] lab is located next to the check out desk and is open from 8 AM to 4:45 PM Thursday through Thursday. Radiology is on the 2nd floor of the Medical Office Building and the 2nd Floor of [facility]. Radiology Scheduling can be reached at To Schedule office visits: Call [phone]. For procedure scheduling questions at the Main [facility] or [place] please call ; for a procedure at [facility] please call . To receive appointment reminders on your cell phone: Make sure we have your cell phone number, and Text [facility] to [phone]. Support for many chronic illnesses is available through [facility] [employer]: [employer] or [phone]. For urgent questions on nights, weekends or holidays, call the Hand Stripper at [phone], and ask for the doctor configuration management manager for Gastroenterology.Call [phone] for any emergencies. L SEWER in this encounter Progress Notes * Antolin Erazo - 04/28/2018 3:30 PM PANEL SEWER Date of Service: 04/28/2018 Subjective: Deborah Fields [...] Erazo MD Gastroenterology & Hepatology Fellow Pager [phone] ATTESTATION I personally interviewed and examined the [...] Staff name: Dannielle Covington MD Date: 04/29/2018 L SEWER in this encounter Plan of Treatment Order Schedule Name Priority Associated Diagnoses Expected: 04/28/2018, Expires: 04/28/2019 COMPREHENSIVE METABOLIC PANEL [...] STAT 04/28/2018 Dyspnea, unspecified type 5:31 PM PANEL SEWER in this encounter Results * HIV-1/2 ANTIGEN/ANTIBODY SCREEN (04/29/2018) HIV 1 [...] * CHEST 2 VIEWS (04/28/2018 5:31 PM PANEL SEWER) Impressions Performed At Improving edema with a [...] Interface, Radiant Results - 04/29/2018 10:53 AM PANEL SEWER Procedure: CHEST 2 VIEWS Clinical Indication: Shortness [...]
--- OUTSIDE RECORDS SUMMARY | 2018-06-18 13:35 | XMS REPORT | Encounter Summary ---
Author Author [facility] Organization [facility] Address Unknown Phone Unavailable Care Team Providers Care Regional Merchandising Manager Name Role Phone Carla Wilson MD PCP Naima Field MD Unavailable Winnie Jorge MD Unavailable Encounter Details Care Team Description Date Type Department Cathy Tejeda MD [address] [place] [address] 04/08/2018 Anesthesia Cardiovascular Medicine Event Main [facility] [place], [place] [id number] Anesthesia Record Responsible Anesthesiologist Anesthesia Start Time [...]
--- OUTSIDE RECORDS SUMMARY | 2018-06-18 13:35 | XMS REPORT | Encounter Summary ---
Author Author [facility] Organization [facility] Address Unknown Phone Unavailable Care Team Providers Care Asian Studies Professor Name Role Phone Carla Wilson MD PCP Naima Field MD Unavailable Winnie Jorge MD Unavailable Encounter Details Care Team Description Date Type Department Dannielle Covington MD [address] [place] [address] 04/28/2018 [facility] Encounter [facility] [address] [place], [place] [id number] Social History Date Tobacco Use Types Packs/Day [...] STAT 04/28/2018 Dyspnea, unspecified type 5:31 PM SUPERVISOR NUCLEAR MEDICINE in this encounter Visit Diagnoses Not on filein this encounter
--- OUTSIDE RECORDS SUMMARY | 2018-06-18 13:35 | XMS REPORT | Encounter Summary ---
Author Author [facility] Organization [facility] Address Unknown Phone Unavailable Care Team Providers Care Envelope Addresser Name Role Phone Carla Wilson MD PCP Naima Field MD Unavailable Winnie Jorge MD Unavailable Reason for Visit * Reason Comments Referral Encounter Details Care Team Description Date Type Department Unknown, Unknown, MD Referral 04/30/2018 [facility]phone [facility] 1st FLOOR [address] [place] [address] Social History Date Tobacco Use Types Packs/Day [...] - Melany Fuchs - 05/04/2018 3:32 PM MOISTURE CONDITIONER OPERATOR Called patient to schedule new appointment with Dr. Diana on Thursday, May 10, 2018 at 2:00pm. Verified demos and mailed appointment letter/map. Pt stated they have current insurance. TURE CONDITIONER OPERATOR * Telephone Encounter - Lakeisha Jin RN - 05/03/2018 2:41 PM MOISTURE CONDITIONER OPERATOR Service (OLT/Gen Hep/HPB): LTC Referring: Dr. Covington Urgency: semi-urgent Provider: next available Dx: cirrhosis, GAVE OV note: [facility] Imaging/location: [facility] Pathology/location: Labs: O2 Fatty liver, transfusion dependent anemia, DELROY, GI bleed with GAVE, Long's. BMI 43, DM, CAD, HTN. Recent DVT. TURE CONDITIONER OPERATOR * Telephone Encounter - Crys Hansen - 04/30/2018 11:41 AM MOISTURE CONDITIONER OPERATOR Received new referral, via internal. Docs in O2. TURE CONDITIONER OPERATOR in this encounter Plan of Treatment Not on fileas of this encounter Visit Diagnoses Not on filein this encounter
--- OUTSIDE RECORDS SUMMARY | 2018-06-18 13:39 | XMS REPORT | Encounter Summary ---
Author Author [facility] Organization [facility] Address Unknown Phone Unavailable Care Team Providers Care Electrical Assembly Technician Name Role Phone Carla Wilson MD PCP Naima Field MD Unavailable Winnie Jorge MD Unavailable Reason for Referral * Consult, Test & Treat (Routine) Referred By Contact Referred To Contact Status Reason Specialty Diagnoses / Procedures Felisa Hector MD [address] [id number] [facility] [place] [address] Closed Cardiology Procedures CARDIOLOGY HEART FAILURE FOLLOW UP APPOINTMENT REQUEST * Consult, Test & Treat (Routine) Referred By Contact Referred To Contact Status Reason Specialty Diagnoses / Procedures Felisa Hector MD [address] [place] [address] [facility] [address] [place] [address] Closed Cardiology Procedures CARDIOLOGY HEART FAILURE FOLLOW UP APPOINTMENT REQUEST * (Routine) Referred By Contact Referred To Contact Status Reason Specialty Diagnoses / Procedures Deepak Miner MD [address] [place] [address] New Request Procedures F/U APPT REQUEST: [facility] (MOB) * (Routine) Referred By Contact Referred To Contact Status Reason Specialty Diagnoses / Procedures Deepak Miner MD [address] [facility] [address] [place] [address] New Request Procedures F/U APPT REQUEST: [facility] (MOB) Reason for Visit * Reason Comments Shortness of Breath CABG x4 1 month ago, sob, in and out of afib and flutter Encounter Details Care Team Description Date Type Department Jarad Felix MD [address] [employer] [address] [place] [address] [phone] Kavon Pak MD [address] [facility] [address] [place] [address] [phone] Deepak Miner MD [address] [facility] [address] [place] [address] [phone] Felisa Hector MD [address] [place] [address] [phone] Atrial fibrillation with rapid ventricular response (HCC) 03/25/2018 [facility] Cardio Prgrs Care - Encounter [address] [facility]. 04/08/2018 [place] [address] Social History Date Tobacco Use Types Packs/Day [...] Bleeding disorder (HCC) CAD (coronary artery disease), [place] coronary artery 02/16/2018 Chronic diastolic heart failure [...] bleeding Transfusion-dependent anemia CAD (coronary artery disease), [place] coronary artery HLD (hyperlipidemia) Hypothyroidism DELROY (acute [...] with a heart failure specialist at [facility] on the 1st floor of the hospital within the [facility] . This appointment is very important [...] boxes to this appointment. Provider LENIN CRYS [[id number]] Location [facility] Appointment date: 04/21/2018 Appointment time: 10:00 AM Return Appointment This appointment is at the [facility] Cardiology office at [facility]. The number is . Provider FELISA HECTOR [[id number]] Location [facility] Appointment date: 05/21/2018 Appointment time: 1:00 PM Report These Signs and Symptoms Please contact your doctor if you have any of the following symptoms: uncontrolled pain, difficulty breathing, chest pain or severe abdominal pain Questions About Your Stay For questions or concerns regarding your hospital stay: - DURING BUSINESS HOURS (8:00 AM - 4:30 PM): Call [phone] and asked to be transferred to your discharge attending physician. - AFTER BUSINESS HOURS (4:30 PM - 8:00 AM, on weekends, or holidays): Call [phone] and ask the substation operator transforming to page the on-call doctor for the discharge attending physician. Discharging attending physician: FELISA HECTOR [[id number]] Cardiac Diet Limiting unhealthy fats and cholesterol [...] Scheduled appointments: Apr 21, 2018 10:00 AM GRAVEL WHEELER Nurse Lab Visit with [facility] HF NURSE Cardiovascular Medicine ([facility] [address] [facility] [address] Apr 21, 2018 10:30 AM GRAVEL WHEELER Hospital Follow Up with Crys Lindsey APRN Cardiovascular Medicine ([facility]) [facility] [address] [facility] [address] Apr 28, 2018 3:30 PM GRAVEL WHEELER Return Patient with Antolin Erazo [facility] - Internal Medicine ([facility]) [facility] [address] [place] [address] May 21, 2018 1:00 PM GRAVEL WHEELER RETURN PT LONG with Felisa Hector MD Cardiovascular Medicine ([facility] [address] [facility] [address] Additional appointment instructions: You have multiple follow [...] the Physical Therapy Department with any questions. [phone] SEATED STRENGTHENING EXERCISES Research shows that lying [...] the Physical Therapy Department with any questions [phone] * Appointments* Ximena Bhardwaj MD - 04/08/2018 [...] 100 mg tablet by mouth twice daily. 04/08/2018 04/28/2018 rosuvastatin (CRESTOR) 40 Take one 90 tablet 3 mg tablet tablet by mouth daily. 02/27/2018 06/18/2018 senna/docusate Take two 20 [...] bleeding Transfusion-dependent anemia CAD (coronary artery disease), [place] coronary artery HLD (hyperlipidemia) Hypothyroidism DELROY (acute [...] on service, Dr. Rolando Woodall DO Pager [phone] GI Fellow 04/08/2018 5:45 PM Interval Events No acute events overnight Patient still with small episodes of hematochezia, mostly mixed with small amount of stool Abdominal pain is minimal The patient feels otherwise well, denies any fever/chills, SOB, chest pain, N/V , dysuria. PMH: Past Medical History: Diagnosis Date Acquired hypothyroidism Arthritis Back pain Bleeding disorder (HCC) CAD (coronary artery disease), [place] coronary artery 02/16/2018 Chronic diastolic heart failure [...] GRAFTS (Internal Mammary Artery and Endovascular Vein [place]) performed by Lance Pal MD at [facility] HX MAZE N/A 02/16/2018 MAZE PROCEDURE performed by Lance Pal MD at [facility] UPPER GASTROINTESTINAL ENDOSCOPY N/A 03/29/2018 ESOPHAGOGASTRODUODENOSCOPY performed [...] Final result Ordering provider: Shashi Chan MD 03/31/188 Resulting lab: MAIN LAB Specimen Information Source Collected On Blood 03/31/182157 Components Component Value Flag Battery Name BLOOD CULTURE Specimen Description -- Result: BLOOD LEFT ANTECUBITAL Special Requests NONE Culture NO GROWTH 5 DAYS Report Status -- Result: FINAL 04/06/2018 CULTURE-BLOOD W/SENSITIVITY Resulted: 04/06/18 0142, Result status: Final result Ordering provider: Shashi Chan MD 03/31/184 Resulting lab: MAIN LAB Specimen Information Source Collected On Blood 03/31/182149 Components Component Value Flag Battery Name BLOOD [...] Bleeding disorder (HCC) CAD (coronary artery disease), [place] coronary artery 02/16/2018 Chronic diastolic heart failure (HCC) 03/31/2018 Coronary artery disease Diabetes mellitus (HCC) Type II Essential hypertension 02/23/2018 Hypertension Stomach disorder Vision decreased Past Surgical History Past Surgical History: Procedure Laterality Date HX HEART CATHETERIZATION 2016 CORONARY STENT PLACEMENT 2016 CORONARY ARTERY BYPASS GRAFT N/A 02/16/2018 CORONARY ARTERY BYPASS WITH ARTERIAL GRAFT - 4 GRAFTS (Internal Mammary Artery and Endovascular Vein [place]en) performed by Lance Pal MD at [facility] HX MAZE N/A 02/16/2018 MAZE PROCEDURE performed by Lance Pal MD at [facility] UPPER GASTROINTESTINAL ENDOSCOPY N/A 03/29/2018 ESOPHAGOGASTRODUODENOSCOPY performed [...] bleeding Transfusion-dependent anemia CAD (coronary artery disease), [place] coronary artery HLD (hyperlipidemia) Hypothyroidism DELROY (acute [...] Reilly Olivera MD PGY-5 Nephrology Fellow Pager [phone] Subjective Lucrecia Fields is a 62 y.o. [...] (97.6 F) (04/08 1400) Pulse: 66 (04/08 1422) Respirations: 18 PER MINUTE (04/08 142) SpO2: 91 % (04/08 1422) O2 Delivery: None (Room Air) (04/08 1422) [...] Output 50 ml Net 750 ml Vitals: 10/21/18 0400 04/05/18 0305 04/06/18 0510 Weight: 110.5 [...] Skin: no rash, dry Labs: Recent Labs 04/06/18 0300 04/07/1842404/08/18 0500 NA 135* 137 136* K 4.3 [...] Alyx Noland Date: 04/08/2018 * Aleyda Durham, WILLIAM - 04/08/2018 2:06 PM CDT OCCUPATIONAL THERAPY NO TREATMENT NOTE The patient was not seen due to: Patient not available Pt chart reviewed. Upon approaching pt's room pt is being transported off unit. Will f/u as able/appropriate. Attempted to see patient 1 time. Therapist: LYNN Tolliver/Skye [id number] Date: 04/08/2018 * Bia Vega - 04/08/2018 12:43 PM CDT CLINICAL NUTRITION Clinical Nutrition Assessment Summary NAME:Lucrecia Fields :1955 AGE: 62 y.o. ADMISSION DATE: 03/25/2018 DAYS ADMITTED: LOS: 14 days Nutrition Assessment of Patient: Malnutrition Assessment: Does not meet criteria Current Oral Intake: NPO, Inadequate Estimated Calorie Needs: 0994-2458 kcal/day (22-25 kcal/kg desired body weight 65.8kg) [...] bleeding Transfusion-dependent anemia CAD (coronary artery disease), [place] coronary artery HLD (hyperlipidemia) Hypothyroidism DELROY (acute [...] > Continue Synthroid 8. HLD > Continue FORENSICS ANALYST statin 9. HTN > Continue metoprolol 10. DMII tomorrow - FORENSICS ANALYST regimen: NPH 18u QD, Novolog 4u TID w/ meals > Continue FORENSICS ANALYST NPH, MDCF Fluids, electrolytes and Nutrition: IVF:no [...] Signs: 24 Hour Range BP: 120/49 (04/08 08) Temp: 36.4 C (97.5 F) (04/08 838) Pulse: 95 (04/08 08) Respirations: 18 PER MINUTE (04/08 08) SpO2: 93 % (04/08 08) O2 Delivery: None (Room Air) (04/08 08) SpO2 Pulse: 86 (04/07 1325) BP: (116-130)/(45-78) [...] Pertinent radiology reviewed. XIMENA BHARDWAJ MD Pager [phone] Associated attestation - Felisa Hector MD - [...] discharge and answering patient questions today. Staff environmental department manager: Felisa Hector MD, PhD Date: 04/08/2018 * [...] bleeding Transfusion-dependent anemia CAD (coronary artery disease), [place] coronary artery HLD (hyperlipidemia) Hypothyroidism DELROY (acute [...] Reilly Olivera MD PGY-5 Nephrology Fellow Pager [phone] Subjective Lucrecia Fields is a 62 y.o. [...] Q6H PRN 650 mg at 04/03/18 1814, dexamethasone (DECADRON) IV Once PRN, fentaNYL citrate [...] 1613) Temp: 36.3 C (97.4 F) (04/07 161) Pulse: 93 (04/07 161) Respirations: 16 PER MINUTE (04/07 161) SpO2: 96 % (04/07 161) O2 Delivery: None (Room Air) (04/07 161) [...] Skin: no rash, dry Labs: Recent Labs 04/05/1842304/06/18 0300 04/07/18 0425 NA 137 135* 137 K 3.4* 4.3 4.3 CL 95* 95* 93* CO2 35* 34* 37* GAP 7 6 7 BUN 44* 38* 34* CR 1.28* 1.38* 1.32* GLU 172* 145* 129* CA 9.3 9.6 10.1 MG 1.9 2.0 2.3 Recent Labs 04/05/1842304/05/18 1410 04/05/188 04/06/1829904/07/18 042 WBC 4.3* 4.7 5.3 4.5 4.4* [...] Invalid input(s): PC02A Associated attestation - Alyx Noladn MBBS - 04/07/2018 8:07 PM CDT ATTESTATION I personally performed the history and the physical examination of the patient and discussed his management with the fellow (resident). I reviewed the fellow' s (residents) note and agree with the documented findings and plan of care. Staff name: Alyx Noland Date: 04/07/2018 * Linda Joya - 04/07/2018 3:11 PM CDT OCCUPATIONAL THERAPY NO TREATMENT NOTE The patient was not seen due to: Patient not available - patient off unit for colonoscopy. Attempted in the afternoon but patient declined to participate despite encouragement or education. Occupational therapy will continue to follow and provide intervention as indicated. Therapist: Linda Joya OTR/L [id number] Date: 04/07/2018 * Pieter Bryant RN - [...] After 5:00 pm, holidays or weekends call [phone] and ask for the GI Doctor adult nurse practitioner. * Yobany Ching, RT - 04/07/2018 9:33 [...] bleeding Transfusion-dependent anemia CAD (coronary artery disease), [place] coronary artery HLD (hyperlipidemia) Hypothyroidism [place]Y (acute [...] > Continue Synthroid 8. HLD > Continue FORENSICS ANALYST statin 9. HTN > Continue metoprolol 10. DMII tomorrow - FORENSICS ANALYST regimen: NPH 18u QD, Novolog 4u TID w/ meals > Continue FORENSICS ANALYST NPH, MDCF Fluids, electrolytes and Nutrition: IVF:no [...] (Last 24 hours): Glucose: (!) 129 (04/07/18 6038) POC Glucose (Download): (!) 165 (04/06/18 5493) Cardiographics: No new Other Radiology/Diagnostics Review: Pertinent radiology reviewed. Peter Pulido MD Pager [phone] Associated attestation - Felisa Hector MD - [...] and treatment plan unless otherwise noted. Staff environmental department manager: Felisa Hector MD, PhD Date: 04/07/2018 * [...] bleeding Transfusion-dependent anemia CAD (coronary artery disease), [place] coronary artery HLD (hyperlipidemia) Hypothyroidism DEL[place]Y (acute [...] Reilly Olivera MD PGY-5 Nephrology Fellow Pager [phone] Subjective Lucrecia Fields is a 62 y.o. [...] ml Net -1450 ml Vitals: 04/04/18 0400 04/05/1830404/06/18 05 Weight: 110.5 kg (243 lb 9.6 oz) 108 kg (238 lb) 106.4 kg (234 lb 9.6 oz) Gen: drowsy, mild respiratory distress HEENT: Sclera normal; MMM CV:no JVD, regular rhythm Pulm: Clear to Auscultation bilateral, diminished GI: BS+ x4, non-tender to palpation Neuro: drowsy, moving all ext Ext: trace ble edema, no clubbing or cyanosis Skin: no rash, dry Labs: Recent Labs 04/04/1843304/05/1842304/06/180 NA 137 137 135* K 3.4* 3.4* 4.3 CL 98 95* 95* CO2 33* 35* 34* GAP 6 7 6 BUN 50* 44* 38* CR 1.50* 1.28* 1.38* GLU 133* 172* 145* CA 9.4 9.3 9.6 MG 1.7 1.9 2.0 Recent Labs 04/03/18201004/04/1843304/05/1842304/05/18 1410 04/05/18214704/06/18299 WBC -- 4.6 4.3* 4.7 5.3 4.5 HGB 8.1* 8.1* 8.0* 8.2* 8.3* 8.2* HCT 24.1* 24.9* 24.9* 25.2* 25.7* 24.8* PLTCT -- 146* 128* 139* 145* 132* INR -- 1.4* 1.5* -- -- 1.6* PTT -- 105.4* 111.3* 96.5* -- 20.4 Estimated Creatinine Clearance: 51.6 mL/min (A) (based on SCr of 1.38 mg/dL (H)) . Vitals: 04/04/18 0400 04/05/185 04/06/18 05 Weight: 110.5 kg (243 lb 9.6 oz) [...] intervention as indicated. Therapist: Linda Joya OTR/L [id number] Date: 04/06/2018 * Ximena Bhardwaj MD - [...] bleeding Transfusion-dependent anemia CAD (coronary artery disease), [place] coronary artery HLD (hyperlipidemia) Hypothyroidism [place] (acute [...] > Continue Synthroid 9. HLD > Continue FORENSICS ANALYST statin 10. HTN > Continue metoprolol 10. DMII tomorrow - FORENSICS ANALYST regimen: NPH 18u QD, Novolog 4u TID w/ meals > Continue FORENSICS ANALYST NPH, MDCF Fluids, electrolytes and Nutrition: IVF:no [...] Pertinent radiology reviewed. XIMENA BHARDWAJ MD Pager [phone] * Sri Karimi RN - 04/06/2018 5:25 [...] to encourage patient to drink. * Stacie Mcdonough RN - 04/05/2018 5:52 PM CDT Spoke c CV1 to clarify plan of care for pt. Holding Coumadin tonight and Hep gtt currently paused. Will bowel prep tonight for colonoscopy Thursday. 1840- Pt beginning 1st bottle MgCitrate at this time. Much encouragement is needed for pt to continue. * Ervin Woodall, DO - 04/05/2018 5:26 PM CDT Gastroenterology Progress Note Patient Name:Lucrecia Fields Admission Date: 03/25/2018 2:56 PM Principal Problem: Atrial fibrillation with rapid ventricular response (HCC) Active Problems: Type 2 diabetes mellitus with circulatory disorder, without long-term 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 (HCC) PAF (paroxysmal atrial fibrillation) (HCC) Chronic gastrointestinal bleeding Transfusion-dependent anemia CAD (coronary artery disease), [place] coronary artery HLD (hyperlipidemia) Hypothyroidism [place]ROY (acute [...] discussed with attending on service, Dr. Rolando Woodall, Pager [phone] GI Fellow 04/05/2018 5:26 PM Interval Events [...] Bleeding disorder (HCC) CAD (coronary artery disease), [place] coronary artery 02/16/2018 Chronic diastolic heart failure [...] GRAFTS (Internal Mammary Artery and Endovascular Vein [place]) performed by Lance Pal MD at [facility] HX MAZE N/A 02/16/2018 MAZE PROCEDURE performed by Lance Pal MD at [facility] UPPER GASTROINTESTINAL ENDOSCOPY N/A 03/29/2018 ESOPHAGOGASTRODUODENOSCOPY performed [...] bleeding Transfusion-dependent anemia CAD (coronary artery disease), [place] coronary artery HLD (hyperlipidemia) Hypothyroidism [place]Y (acute [...] Reilly Olivera MD PGY-5 Nephrology Fellow Pager [phone] Subjective Lucrecia Fields is a 62 y.o. [...] BID pantoprazole DR 80 mg Oral QDAY(21) potassium chloride SR 60 mEq Oral ONCE [...] 9.3 MG 1.8 1.7 1.9 Recent Labs 04/02/18210304/03/1842304/03/18201004/04/18 04304/05/184 04/05/18 1410 WBC -- 5.1 -- 4.6 4.3* [...] bleeding Transfusion-dependent anemia CAD (coronary artery disease), [place] coronary artery HLD (hyperlipidemia) Hypothyroidism DELROY (acute kidney injury) (HCC) Essential hypertension Pleural effusion on left Left leg cellulitis Long's esophagus Acute on chronic diastolic heart failure due to coronary artery disease (HCC) Lucrecia Escobedo a 62 y.o.female, the patienthas a past [...] > Continue Synthroid 9. HLD > Continue FORENSICS ANALYST statin 10. HTN > Continue metoprolol 10. DMII tomorrow - FORENSICS ANALYST regimen: NPH 18u QD, Novolog 4u TID w/ meals > Continue FORENSICS ANALYST NPH, add on mid dose correction factor [...] (Last 24 hours) Glucose: (!) 172 (04/05/18 3004) POC Glucose (Download): (!) 160 (04/05/18 5397) Radiology and other Diagnostics Review: Pertinent radiology reviewed. XIMENA BHARDWAJ MD Pager [phone] Associated attestation - Felisa Hector MD - [...] and treatment plan unless otherwise noted. Staff environmental department manager: Felisa Hector MD, PhD Date: 04/05/2018 * Stacie Mcdonouhg RN - 04/05/2018 3:46 PM CDT Pt c/o "sharp" abd pain since seeing blood in stool. Tramadol given per pt request. Pt then requesting "chex mix" as the only thing that sounds good. Education provided regarding Cardiac diet and Sodium restrictions. Pt voiced understanding of education and then began eating chex mix. * Stacie Mcdonough, THOMPSON - 04/05/2018 1:40 PM CDT 1335- Hep [...] Will page CV1 with results. * Sunshine Mejias PHARMD - 04/05/2018 12:31 PM CDT Pharmacy Warfarin [...] PROGRESS NOTE Patient Name: Lucrecia Fields Room/Bed: [address] [address] Admitting Diagnosis: Past Medical History: Diagnosis Date Acquired hypothyroidism Arthritis Back pain Bleeding disorder (HCC) CAD (coronary artery disease), [place] coronary artery 02/16/2018 Chronic diastolic heart failure [...] effusion. Chest tube placed 03/26. Transferred to [facility] 04/01 for respiratory concerns. Precautions: Falls Pain / Complaints: Patient agrees to participate in therapy;Patient has no c/o pain Objective Psychosocial Status: Willing and Cooperative to Participate Persons Present: Spouse Home Living Type of Home: House Home Layout: One Level;Ramped Entrance Prior Function Level Of [place]: Independent with ADLs and functional transfers Lives [...] early to be determined Therapist: Linda Young [id number] Date: 04/05/2018 * Eyad Feldman RT - [...] bleeding Transfusion-dependent anemia CAD (coronary artery disease), [place] coronary artery HLD (hyperlipidemia) Hypothyroidism [place]Y (acute [...] Reilly Olivera MD PGY-5 Nephrology Fellow Pager [phone] Subjective Lucrecia Fields is a 62 y.o. [...] 04/04/18 0332, warfarin QHS 2.5 mg at 2118 AND warfarin, pharmacy to manage Per Pharmacy [...] bleeding Transfusion-dependent anemia CAD (coronary artery disease), [place] coronary artery HLD (hyperlipidemia) Hypothyroidism [place]ROY (acute [...] > Continue Synthroid 9. HLD > Continue FORENSICS ANALYST statin 10. HTN > Continue metoprolol 10. DMII tomorrow - FORENSICS ANALYST regimen: NPH 18u QD, Novolog 4u TID w/ meals > Continue FORENSICS ANALYST NPH, add on mid dose correction factor Fluids, electrolytes and Nutrition: IVF: no IVF Electrolytes: Monitor and replace PRN. Diet: Cardiac Diet Prophylaxis: DVT: SCD Stress ulcer: PPI Code status: Full Code Disposition: contiue on CV1, continue ICU management Patient discussed with Dr. Miner. Giovanni Brooks DO Internal Medicine PGY-1 Pager: [phone] Subjective Patient seen and examined. Doing well [...] (Last 24 hours) Glucose: (!) 133 (04/04/18 0434) POC Glucose (Download): (!) 150 (04/04/18 1322) [...] Brooks DO Internal Medicine PGY 1 Pager [phone] Associated attestation - Deepak Miner MD - [...] Deepak Miner MD Date: 04/04/2018 * Yancy Stafford, THOMPSON - 04/04/2018 2:33 PM CDT Patient arrived [...] of insulin (HCC) PAF (paroxysmal atrial fibrillation) ([facility]) Chronic gastrointestinal bleeding Transfusion-dependent anemia CAD (coronary artery disease), [place] coronary artery HLD (hyperlipidemia) Hypothyroidism [place]Y (acute [...] Reilly Olivera MD PGY-5 Nephrology Fellow Pager [phone] Subjective Lucrecia Fields is a 62 y.o. [...] PER MINUTE (04/03 1600) SpO2: 98 % (04/03 1600) O2 Delivery: Nasal Cannula (04/03 1200) [...] bleeding Transfusion-dependent anemia CAD (coronary artery disease), [place] coronary artery HLD (hyperlipidemia) Hypothyroidism DELROY (acute [...] > Continue Synthroid 9. HLD > Continue FORENSICS ANALYST statin 10. HTN > Continue metoprolol 10. DMII - FORENSICS ANALYST regimen: NPH 18u QD, Novolog 4u TID w/ meals > Continue FORENSICS ANALYST NPH, add on mid dose correction factor Fluids, electrolytes and Nutrition: IVF: no IVF Electrolytes: Monitor and replace PRN. Diet: Cardiac Diet Prophylaxis: DVT: SCD Stress ulcer: PPI Code status: Full Code Disposition: contiue on CV1, continue ICU management Patient discussed with Dr. Miner. Giovanni Brooks DO Internal Medicine PGY-1 Pager: [phone] Subjective Patient seen and examined this morning. [...] (Last 24 hours) Glucose: (!) 179 (04/03/18 1260) POC Glucose (Download): (!) 185 (04/03/18 9921) Radiology and other Diagnostics Review: CT head April 01, 2018 No acute intracranial hemorrhage or mass effect. Chest x-ray April 03, 2018 Impression: No significant change in appearance of chest with stable postoperative mediastinal configuration, cardiomegaly, left pleural effusion with associated left lung consolidation as described. Stable mild central venous congestion. Giovanni Brooks DO Internal Medicine PGY 1 Pager [phone] Associated attestation - Deepak Miner MD - [...] bleeding Transfusion-dependent anemia CAD (coronary artery disease), [place] coronary artery HLD (hyperlipidemia) Hypothyroidism DELROY (acute [...] safe to anticoagulate. Heparin gtt Endo: Modified [place] Insulin Protocol, synthroid Prophylaxis: HOB>40, PPI, Therapeutic [...] IV infusion (dbl conc) 1,570 Units/hr (04/03/18 0714) PRN and Respiratory Meds:acetaminophen Q6H PRN, hydrOXYzine TID PRN, nitroglycerin Q5 MIN PRN, ondansetron Q8H PRN, traMADol Q6H PRN Vital Signs: Last Filed Vital Signs: 24 Hour Range BP: 122/51 (04/03 700) Temp: 36.4 C (97.5 F) (04/03 040) Pulse: 75 (04/03 700) Respirations: 26 PER MINUTE (04/03 06) SpO2: [...] time, excluding procedures today. Scott Fajardo MD Mill Labor Supervisor Anesthesiology/Critical Care Medicine Pager: [phone] * Jarod Reilly - 04/02/2018 4:02 PM CDT Renal Progress Note Name: Lucrecia Fields Today's Date: 04/02/2018 Admission Date: 03/25/2018 LOS: 8 days Assessment and Plan Principal Problem: Atrial fibrillation with rapid ventricular response (HCC) Active Problems: Type 2 diabetes mellitus with circulatory disorder, without long-term 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 (HCC) PAF (paroxysmal atrial fibrillation) (HCC) Chronic gastrointestinal bleeding Transfusion-dependent anemia CAD (coronary artery disease), [place] coronary artery HLD (hyperlipidemia) Hypothyroidism DELROY (acute [...] Reilly Olivera MD PGY-5 Nephrology Fellow Pager [phone] Subjective Lucrecia Fields is a 62 y.o. female mental [...] bleeding Transfusion-dependent anemia CAD (coronary artery disease), [place] coronary artery HLD (hyperlipidemia) Hypothyroidism DELROY (acute [...] > Continue Synthroid 9. HLD > Continue FORENSICS ANALYST statin 10. HTN > Continue metoprolol 10. DMII - FORENSICS ANALYST regimen: NPH 18u QD, Novolog 4u TID w/ meals > Continue FORENSICS ANALYST NPH, add on mid dose correction factor Fluids, electrolytes and Nutrition: IVF: no IVF Electrolytes: Monitor and replace PRN. Diet: Cardiac Diet Prophylaxis: DVT: SCD Stress ulcer: PPI Code status: Full Code Disposition: contiue on CV1, continue ICU management Patient discussed with Dr. Miner. Giovanni Brooks DO Internal Medicine PGY-1 Pager: [phone] Subjective Patient seen and examined this morning. [...] hours) Intake/Output Summary (Last 24 hours) at 10/19/18 1406 Last data filed at 04/02/18 1300 [...] 0520) POC Glucose (Download): (!) 189 (04/02/18 6446) Radiology and other Diagnostics Review: CT head April 01, 2018 No acute intracranial hemorrhage or mass effect. Chest x-ray April 02, 2018 1. Persistent generalized cardiomegaly and persistent widening of the superior mediastinum with pulmonary vascular congestion and edema. 2. Persistent left pleural effusion and left basilar consolidation likely atelectasis. Giovanni Brooks DO Internal Medicine PGY 1 Pager [phone] Associated attestation - Deepak Miner MD - [...] Current Oral Intake: Adequate Estimated Calorie Needs: 8779-1480 kcal/day (22-25 kcal/kg DBW) Estimated Protein Needs: 80 g/day (1.2 g/kg DBW) Oral Diet Order: Cardiac, Diabetic [phone] Kcal/day (60 g Carb/meal, 30 g Carb [...] 45 g CHO/meal diet. JAY Butterfield-NDTR Phone: [phone] Pager: [phone] * Lakeisha Laughlin, PT - 04/02/2018 11:04 AM CDT PHYSICAL [...] PT, DPT Date: 04/02/2018 * Leida Montoya - 04/02/2018 11:04 AM CDT OCCUPATIONAL THERAPY RE-ASSESSMENT NOTE Patient Name: Lucrecia Fields Room[facility]Bed: [facility] Admitting Diagnosis: Past Medical History: Diagnosis Date Acquired hypothyroidism Arthritis Back pain Bleeding disorder (HCC) CAD (coronary artery disease), [place] coronary artery 02/16/2018 Chronic diastolic heart failure [...] effusion. Chest tube placed 03/26. Transferred to [facility] 04/01 for respiratory concerns. Precautions: Falls;O2 Requirement Pain / Complaints: Patient agrees to participate in therapy;Patient has no c/o pain Objective Psychosocial Status: Willing and Cooperative to Participate Persons Present: Physical Therapist;Spouse Home Living Type of Home: House Home Layout: One Level;Ramped Entrance Prior Function Level Of [place]: Independent with ADLs and functional transfers Lives [...] bleeding Transfusion-dependent anemia CAD (coronary artery disease), [place] coronary artery HLD (hyperlipidemia) Hypothyroidism DELROY (acute [...] anticoagulate. Heparin gtt started overnight. Endo: Modified [place] Insulin Protocol, synthroid Prophylaxis: HOB>40, PPI, Therapeutic [...] at 04/02/18 0716 Last data filed at 04/02/18 0600 Gross per 24 hour Intake 1394 ml [...] time, excluding procedures today. Scott Fajardo MD Mill Labor Supervisor Anesthesiology/Critical Care Medicine Pager: [phone] * Wilfrido Marquez RN - 04/02/2018 1:21 [...] medication. Continuing to monitor. * Reilly Olivera 04/01/2018 4:48 PM CDT Renal Progress Note Name: Lucrecia Fields Today's Date: 04/01/2018 Admission Date: 03/25/2018 LOS: 7 days Assessment and Plan Principal Problem: Atrial fibrillation with rapid ventricular response (HCC) Active Problems: Type 2 diabetes mellitus with circulatory disorder, without long-term 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 (HCC) PAF (paroxysmal atrial fibrillation) (HCC) Chronic gastrointestinal bleeding Transfusion-dependent anemia CAD (coronary artery disease), [place] coronary artery HLD (hyperlipidemia) Hypothyroidism DELROY (acute [...] Reilly Olivera MD PGY-5 Nephrology Fellow Pager [phone] Subjective Lucrecia Fields is a 62 y.o. [...] and plan of care. Moved to the [facility] early this am. Lethargic and confused. Stable [...] and critical care teams. Staff name: Alyx Palmer Kainyunieryessenia Date: 04/01/2018 * Linda Joya - 04/01/2018 3:31 PM CDT OCCUPATIONAL THERAPY NOTE Patient rapid responded this morning and transferred to CICU for change in medical status. Occupational therapy will continue to follow and provide intervention as indicated. Linda Toan OTR/L [id number] * Samantha Arriaga RN - 04/01/2018 2:00 PM CDT 1400- Dr. Fajardo notified that pt has not had any urine output since lasix bolus admin and gtt start. Will continue to monitor. 1615- Pt refusing re-attempt of munoz catheter placement/straight cath. Bladder scanning likely not accurate d/t panus. Ok to give lasix doses when able per Dr. Fajardo. 1945- pt transported to CT with this RN and THOMPSON Fine with monitor and red box. Pt transported travel well without complications. 1999- pt return to [facility]. VSS. After CT scan pt refusing to [...] bleeding Transfusion-dependent anemia CAD (coronary artery disease), [place] coronary artery HLD (hyperlipidemia) Hypothyroidism DELROY (acute [...] and felt safe to anticoagulate. Endo: Modified [place] Insulin Protocol, synthroid Prophylaxis: HOB>40, PPI, DVT [...] 111.6 kg (246 lb 0.5 oz) (04/01 045) BP: (103-148)/(42-78) Temp: [36.6 C (97.8 F)-36.9 [...] time, excluding procedures today. Scott Fajardo MD Mill Labor Supervisor Anesthesiology/Critical Care Medicine Pager: [phone] * Yobany Concepcion, PT - 04/01/2018 1:10 PM CDT PHYSICAL THERAPY NOTE Per chart review and team discussion, patient has transferred to the CICU this date. PT to hold this date and will follow-up with patient at a later time. Therapist: Yobany Concepcion, PT, DPT Date: 04/01/2018 * Giovanni Brooks, - 04/01/2018 1:07 PM CDT General Progress Note Name: Lucrecia Fields Today's Date: 04/01/2018 Admission Date: 03/25/2018 LOS: 7 days Assessment/Plan: Principal Problem: Atrial fibrillation with rapid ventricular response (HCC) Active Problems: Type 2 diabetes mellitus with circulatory disorder, without long-term 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 (HCC) PAF (paroxysmal atrial fibrillation) (HCC) Chronic gastrointestinal bleeding Transfusion-dependent anemia CAD (coronary artery disease), [place] coronary artery HLD (hyperlipidemia) Hypothyroidism DELROY (acute [...] > Continue Synthroid 9. HLD > Continue FORENSICS ANALYST statin 10. HTN > Continue metoprolol 10. DMII - FORENSICS ANALYST regimen: NPH 18u QD, Novolog 4u TID w/ meals > Continue FORENSICS ANALYST NPH, add on mid dose correction factor Fluids, electrolytes and Nutrition: IVF: no IVF Electrolytes: Monitor and replace PRN. Diet: Cardiac Diet Prophylaxis: DVT: SCD Stress ulcer: PPI Code status: Full Code Disposition: contiue on CV1, transferred to ICU Patient discussed with Dr. Miner. Giovanni Brooks DO Internal Medicine PGY-1 Pager: [phone] Subjective Patient seen and examined this morning. [...] O2 Sat-Arterial 95.0 95 - 99 % Ixgfdxgqzep-QFP-Mxi 23.7 21 - 28 MMOL/L BASIC METABOLIC [...] Color,UA YELLOW Turbidity,UA 1+ (A) CLEAR-CLEAR Specific [place]-Urine 1.014 1.003 - 1.035 pH,UA 5.0 5.0 [...] Sat-Venous 74.1 (H) 55 - 71 % Dfimqpzrzvi-JWD-Ymy 23.4 MMOL/L POC GLUCOSE Collection Time: 04/01/18 [...] Brooks DO Internal Medicine PGY 1 Pager [phone] Associated attestation - Deepak Miner MD - 04/01/2018 2:51 PM CDT Cardiology Staff Note Ms. Fields was still having increased work of breathing today. She was seen by the overnight team. Her ABG last night showe 7.2 //24. She had 2 sets of blood cultures [...] agitated and requesting to leave AMA. Cardiology information technology intern went to pts room to talk with her. Pt is agreeing to stay for "another hour." 0.5 mg IV Ativan given at 2023 per . 2114 pt is increasingly lethargic. Pt desats [...] Brooks DO Internal medicine PGY 1 Pager [phone] * Erendira Howell RN - 03/31/2018 6:00 PM CDT RN and nurse discharge attempt at blood cultures and lactic, unsuccessful. Lab troubleshoot paged, stated they would come and draw blood. * Margie BrooksveDO kimberly - 03/31/2018 12:58 PM CDT General Progress Note Name: Lucrecia Fields Today's Date: 03/31/2018 Admission Date: 03/25/2018 LOS: 6 days Assessment/Plan: Principal Problem: Atrial fibrillation with rapid ventricular response (HCC) Active Problems: Type 2 diabetes mellitus with circulatory disorder, without long-term 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 (HCC) PAF (paroxysmal atrial fibrillation) (HCC) Chronic gastrointestinal bleeding Transfusion-dependent anemia CAD (coronary artery disease), [place] coronary artery HLD (hyperlipidemia) Hypothyroidism DELROY (acute [...] > Continue Synthroid 8. HLD > Continue FORENSICS ANALYST statin 9. HTN > Continue metoprolol 10. DMII - FORENSICS ANALYST regimen: NPH 18u QD, Novolog 4u TID w/ meals > Continue FORENSICS ANALYST NPH, add on mid dose correction factor Fluids, electrolytes and Nutrition: IVF: no IVF Electrolytes: Monitor and replace PRN. Diet: Cardiac Diet Prophylaxis: DVT: SCD Stress ulcer: PPI Code status: Full Code Disposition: contiue on CV1 Patient discussed with Dr. Miner. Giovanni Brooks DO Internal Medicine PGY-1 Pager: [phone] Subjective Patient seen and examined this morning. [...] 1230) Temp: 36.6 C (97.9 F) (03/31 1230) Pulse: 75 (03/310) Respirations: 18 PER MINUTE (03/31 1230) SpO2: [...] Sat-Arterial 94.8 (L) 95 - 99 % Srirfimmcas-RRA-Xyq 22.5 21 - 28 MMOL/L POC GLUCOSE [...] Brooks DO Internal Medicine PGY 1 Pager [phone] Associated attestation - Deepak Miner MD - [...] to return tomorrow. Therapist: Linda Joya OTR/L [id number] Date: 03/31/2018 * Luna Murillo - 03/31/2018 [...] (believes she is in a hospital in [place]) and what year it is. Currently patient [...] bleeding Transfusion-dependent anemia CAD (coronary artery disease), [place] coronary artery HLD (hyperlipidemia) Hypothyroidism DELROY (acute [...] on service, Dr. Jonny Woodall DO Pager [phone] GI Fellow 03/30/2018 6:32 PM Interval Events No acute events overnight EGD performed yesterday with above findings Feeling well this morning, hemoglobin relatively stable currently 8.4. The patient feels otherwise well, denies any fever/chills, SOB, chest pain, N/V , abd pain, dysuria. PMH: Past Medical History: Diagnosis Date Acquired hypothyroidism Arthritis Back pain Bleeding disorder (HCC) CAD (coronary artery disease), [place] coronary artery 02/16/2018 Coronary artery disease Diabetes [...] GRAFTS (Internal Mammary Artery and Endovascular Vein [place]) performed by Lance Pal MD at [facility] HX MAZE N/A 02/16/2018 MAZE PROCEDURE performed by Lance Pal MD at [facility] ANKLE SURGERY Left ankle reconstruction COLONOSCOPY HX [...] PM CDT General Progress Note Name: Lucrecia Fielsd Today's Date: 03/30/2018 Admission Date: 03/25/2018 LOS: 5 days Assessment/Plan: Principal Problem: Atrial fibrillation with rapid ventricular response (HCC) Active Problems: Type 2 diabetes mellitus with circulatory disorder, without long-term 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 (HCC) PAF (paroxysmal atrial fibrillation) (HCC) Chronic gastrointestinal bleeding Transfusion-dependent anemia CAD (coronary artery disease), [place] coronary artery HLD (hyperlipidemia) Hypothyroidism DELROY (acute [...] > Continue Synthroid 6. HLD > Continue FORENSICS ANALYST statin 7. HTN > Continue metoprolol 8. DMII - FORENSICS ANALYST regimen: NPH 18u QD, Novolog 4u TID w/ meals > Continue FORENSICS ANALYST NPH, add on mid dose correction factor Fluids, electrolytes and Nutrition: IVF: no IVF Electrolytes: Monitor and replace PRN. Diet: Cardiac Diet Prophylaxis: DVT: SCD Stress ulcer: PPI Code status: Full Code Disposition: contiue on CV1 Patient discussed with Dr. Miner. Shashi Chan MD Internal Medicine PGY-2 Pager: [phone] Subjective Having pain/discomfort from her chest tube [...] MINUTE (03/30 1300) SpO2: 93 % (03/30 130) O2 Delivery: Nasal Cannula (03/30 1302) BP: [...] Color,UA CARLIE Turbidity,UA 1+ (A) CLEAR-CLEAR Specific [place]-Urine 1.021 1.003 - 1.035 pH,UA 5.0 5.0 [...] (Last 24 hours) Glucose: (!) 207 (03/30/18 0410) POC Glucose (Download): (!) 195 (03/30/18 0924) Radiology and other Diagnostics Review: None Associated [...] Recommendations: Patient owns necessary equipment Therapist: Yobany Concepcion, PT , DPT Date: 03/30/2018 * Linda Joya - 03/30/2018 10:00 AM CDT OCCUPATIONAL THERAPY ASSESSMENT NOTE Patient Name: Lucrecia Fields Room/Bed: [place] [address] Admitting Diagnosis: Past Medical History: Diagnosis Date Acquired hypothyroidism Arthritis Back pain Bleeding disorder (HCC) CAD (coronary artery disease), [place] coronary artery 02/16/2018 Coronary artery disease Diabetes [...] One Level;Ramped Entrance Prior Function Level Of [place]: Independent with ADLs and functional transfers Lives [...] to be determined Therapist: Linda Joya OTR/L [id number] Date: 03/30/2018 * Keanu Jarquin PA-C - [...] RN - 03/29/2018 11:30 PM CDT 03/29/18 2315 03/29/18 2330 Vitals SpO2 (!) 88 % [...] will continue to monitor patient. * Giovanni Brooks, - 03/29/2018 7:16 PM CDT General Progress Note Name: Lucrecia Fields Today's Date: 03/29/2018 Admission Date: 03/25/2018 LOS: 4 days Assessment/Plan: Principal Problem: Atrial fibrillation with rapid ventricular response (HCC) Active Problems: Type 2 diabetes mellitus with circulatory disorder, without long-term 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 (HCC) PAF (paroxysmal atrial fibrillation) (HCC) Chronic gastrointestinal bleeding Transfusion-dependent anemia CAD (coronary artery disease), [place] coronary artery HLD (hyperlipidemia) Hypothyroidism Essential hypertension [...] > Continue Synthroid 6. HLD > Continue FORENSICS ANALYST statin 7. HTN > Continue metoprolol 8. DMII - FORENSICS ANALYST regimen: NPH 18u QD, Novolog 4u TID w/ meals > Continue FORENSICS ANALYST NPH, add on mid dose correction factor Fluids, electrolytes and Nutrition: IVF: no IVF Electrolytes: Monitor and replace PRN. Diet: Cardiac Diet Prophylaxis: DVT: SCD Stress ulcer: PPI Code status: Full Code Disposition: admit to 1 Patient seen and discussed with Dr. Miner. Gioavnni Brooks DO Internal medicine PGY 1 Pager [phone] Subjective Patient seen and examined this morning. [...] Brooks DO Internal medicine PGY 1 Pager [phone] Associated attestation - Deepak Miner MD - [...] mitral valve function. She is admitted with Roberto valero with RVR. She also had volume overload. [...] tube placed. Will continue to monitor. * Lita Espinoza RN - 03/29/2018 2:19 PM CDT [...] or concerns after your procedure please call [phone] M-F 8am-5:00 pm. After 5:00 pm, holidays or weekends call [phone] and ask for the GI Doctor adult nurse practitioner. * Lita Espinoza RN - 03/29/2018 10:07 [...] > Continue Synthroid 6. HLD > Continue FORENSICS ANALYST statin 7. HTN > Continue metoprolol 8. DMII - FORENSICS ANALYST regimen: NPH 14u QD, Novolog 4u TID w/ meals > Continue FORENSICS ANALYST NPH, add on mid dose correction factor Fluids, electrolytes and Nutrition: IVF: no IVF Electrolytes: Monitor and replace PRN. Diet: Cardiac Diet Prophylaxis: DVT: SCD Stress ulcer: PPI Code status: Full Code Disposition: admit to 1 Patient seen and discussed with Dr. Rubin. Giovanni Brooks DO Internal medicine PGY 1 Pager [phone] Cardiology Attending Staff Attestation I have personally [...] (Last 24 hours) Glucose: (!) 232 (03/28/18 7470) POC Glucose (Download): (!) 219 (03/28/18 1515) Radiology and other Diagnostics Review: None Giovanni Brooks, DO Internal medicine PGY 1 Pager [phone] * Ayana Wilson RN - 03/28/2018 4:51 AM CDT IVT for labs * Deepak Rubin MD - 03/27/2018 8:52 AM CDT General Progress Note Name: Lucrecia Fields Today's Date: 03/27/2018 Admission Date: 03/25/2018 [...] > Continue Synthroid 6. HLD > Continue FORENSICS ANALYST statin 7. HTN > Continue metoprolol 8. DMII - FORENSICS ANALYST regimen: NPH 14u QD, Novolog 4u TID w/ meals > Continue FORENSICS ANALYST NPH, add on SSI Fluids, electrolytes and Nutrition: IVF: no IVF Electrolytes: Monitor and replace PRN. Diet: Cardiac Diet Prophylaxis: DVT: SCD Stress ulcer: PPI Code status: Full Code Disposition: admit to CV1 Patient seen and discussed with Dr. Rubin. Giovanni Brooks DO Internal medicine PGY 1 Pager [phone] Cardiology Attending Staff Attestation I have personally [...] Signs: 24 Hour Range BP: 117/82 (03/27 737) Temp: 36.3 C (97.3 F) (03/27 737) [...] Range Color,UA YELLOW Turbidity,UA CLEAR CLEAR-CLEAR Specific [place]-Urine 1.015 1.003 - 1.035 pH,UA 5.0 5.0 [...] (Last 24 hours) Glucose: (!) 235 (03/27/18 0530) POC Glucose (Download): (!) 213 (03/27/18 8932) Radiology and other Diagnostics Review: Pertinent radiology reviewed. Giovanni Brooks, DO Internal medicine PGY 1 Pager [phone] * Armando Gonsalez RN - 03/27/2018 5:36 [...] > Continue Synthroid 6. HLD > Continue FORENSICS ANALYST statin 7. HTN > Continue metoprolol 8. DMII - FORENSICS ANALYST regimen: NPH 14u QD, Novolog 4u TID w/ meals > Continue FORENSICS ANALYST NPH, add on SSI Fluids, electrolytes and Nutrition: IVF: no IVF Electrolytes: Monitor and replace PRN. Diet: Cardiac Diet Prophylaxis: DVT: SCD Stress ulcer: PPI Code status: Full Code Disposition: admit to CV1 Patient seen and discussed with Dr. Nath. Giovanni Brooks DO Internal medicine PGY 1 Pager [phone] Subjective Patient seen and examined this morning. [...] (03/26 1245) O2 Delivery: Nasal Cannula (03/26 1245) SpO2 Pulse: 120 (03/26 1245) Height: 162.6 [...] 03/25/18 4:09 PM Result Value Ref Range Qvcxqttv-Y-XYD 0.00 0.00 - 0.05 NG/ML BNP POC [...] of a clinically significant antibody. Unit Number [id number] Blood Component Type RBC,ADSOL,LEUKO REDUCED Unit Division [...] 0202) POC Glucose (Download): (!) 210 (03/26/18 1595) Radiology and other Diagnostics Review: Pertinent radiology reviewed. Giovanni Brooks DO Internal medicine PGY 1 Pager [phone] Staff: I have personally interviewed and examined [...] transfusions repeatedly and has been followed by breaker operator. Last blood transfusion was about a week [...] GRAFTS (Internal Mammary Artery and Endovascular Vein [place]) performed by Lance Pal MD at [facility] HX MAZE N/A 02/16/2018 MAZE PROCEDURE performed by Lance Pal MD at [facility] ANKLE SURGERY Left ankle reconstruction COLONOSCOPY HX [...] mg, 650 mg, Oral, Q6H PRN, Shashi hCan MD, 650 mg at 03/25/182127 aspirin chewable tablet 81 mg, 81 mg, Oral, QDAY, Shashi Chan MD cetirizine (ZYRTEC) tablet 10 mg, 10 mg, Oral, QAM8, Shashi Chan MD folic acid (FOLVITE) tablet 1 mg, 1 mg, Oral, QDAY, Shashi Chan MD furosemide (LASIX) tablet 20 mg, 20 mg, Oral, QDAY, Shashi Chan MD insulin aspart U-100 (NOVOLOG FLEXPEN) injection PEN 0-7 Units, 0-7 Units, Subcutaneous, SALVADOR, Giovanni Brooks, insulin NPH (HUMULIN N KwikPen) injection PEN [...] (PROTONIX) tablet 80 mg, 80 mg, Oral, QDAY(21), Shashi Chan MD, 80 mg at 03/25/182128 [...] 03/25/18 4:09 PM Result Value Ref Range Tbswdwnl-C-QDH 0.00 0.00 - 0.05 NG/ML BNP POC [...] GAVE treatment. If still here over the , we will plan for EGD with APC [...] with the above Ervin Woodall DO Pager [phone] GI Fellow 03/26/2018 11:07 AM Associated attestation [...] did agree to proceed. Physical Status Classification ([place] [employer]esthesiologists): Per anesthesia assessment. Sedation/Medication Plan Sedation plan per Anesthesiology Jesús Barbosa MD, [facility] Department of Cardiovascular Medicine [facility] Pager [phone] * Skinny Marshall MD - 04/07/2018 12:05 [...] capsule 180 mg 180 mg Oral QDAY [Aug] folic acid (FOLVITE) tablet 1 mg 1 [...] tablet 100 mg 100 mg Oral BID [MAR Hold] folic acid (FOLVITE) tablet 1 mg 1 mg Oral QDAY [Aug] insulin aspart U-100 (NOVOLOG FLEXPEN) injection PEN 0-14 Units 0-14 Units Subcutaneous ACHS [Aug] insulin NPH (HUMULIN N KwikPen) injection PEN 18 Units 18 Units Subcutaneous QDAY(07) [AUG Hold] levothyroxine (SYNTHROID) tablet 175 mcg 175 mcg [...] insulin (HCC) 02/12/2018 PAF (paroxysmal atrial fibrillation) ([facility]) 02/12/2018 Atrial fibrillation with rapid ventricular response ([facility]) 02/12/2018 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 anemia 11/13/2017 Anemia 09/28/2017 Past Medical History: Diagnosis Date Acquired hypothyroidism Arthritis Back pain Bleeding disorder (HCC) Coronary artery disease Diabetes mellitus ([facility]) Type II Hypertension Stomach disorder Vision decreased Past Surgical History: Procedure Laterality Date HX HEART CATHETERIZATION 2017 CORONARY STENT PLACEMENT 2017 CORONARY ARTERY BYPASS GRAFT N/A 02/16/2018 CORONARY ARTERY BYPASS WITH ARTERIAL GRAFT - 4 GRAFTS (Internal Mammary Artery and Endovascular Vein [place]) performed by Lance Pal MD at [facility] HX MAZE N/A 02/16/2018 MAZE PROCEDURE performed by Lance Pal MD at [facility] ANKLE SURGERY Left ankle reconstruction COLONOSCOPY HX [...] Pertinent labs reviewed Renata Jules APRN Pager [phone] * Shashi Chan MD - 03/25/2018 6:02 [...] > Continue Synthroid 6. HLD > Continue FORENSICS ANALYST statin 7. HTN > Continue metoprolol 8. DMII - FORENSICS ANALYST regimen: NPH 14u QD, Novolog 4u TID w/ meals > Continue FORENSICS ANALYST regimen Fluids, electrolytes and Nutrition: IVF: no IVF Electrolytes: Monitor and replace PRN. Diet: NPO at PA Prophylaxis: DVT: will start heparin if patient has DVT Stress ulcer: PPI Code status: Full Code Disposition: admit to [facility] Patient seen and discussed with [...] She states that since they live in [facility] they declined admission at the time of [...] GRAFTS (Internal Mammary Artery and Endovascular Vein [place]) performed by Lance Pal MD at [facility] HX MAZE N/A 02/16/2018 MAZE PROCEDURE performed by Lance Pal MD at [facility] ANKLE SURGERY Left ankle reconstruction COLONOSCOPY HX [...] (03/25 1714) Temp: 36.4 C (97.6 F) (03/25 1433) Pulse: 110 (03/25 1713) Respirations: 20 [...] transfusions repeatedly and has been followed by breaker operator. Last blood transfusion was about a week [...] bleeding Transfusion-dependent anemia CAD (coronary artery disease), [place] coronary artery HLD (hyperlipidemia) Hypothyroidism DELROY (acute [...] Reilly Olivera MD PGY-5 Nephrology Fellow Pager [phone] History Reason for Consult: [place] HPI: Lucrecia Fields is a 62 y.o. female with CAD s/p CABG , T2Dm, HTN, hypothyroidism, a-fib who was admitted [...] Bleeding disorder (HCC) CAD (coronary artery disease), [place] coronary artery 02/16/2018 Chronic diastolic heart failure (HCC) 03/31/2018 Coronary artery disease Diabetes mellitus (HCC) Type II Essential hypertension 02/23/2018 Hypertension Stomach disorder Vision decreased Past Surgical History: Procedure Laterality Date HX HEART CATHETERIZATION 2016 CORONARY STENT PLACEMENT 2016 CORONARY ARTERY BYPASS GRAFT N/A 02/16/2018 CORONARY ARTERY BYPASS WITH ARTERIAL GRAFT - 4 GRAFTS (Internal Mammary Artery and Endovascular Vein [place]) performed by Lance Pal MD at [facility] HX MAZE N/A 02/16/2018 MAZE PROCEDURE performed by Lance Pal MD at [facility] UPPER GASTROINTESTINAL ENDOSCOPY N/A 03/29/2018 ESOPHAGOGASTRODUODENOSCOPY performed [...] be of further assistance. Anthony Saldivar MD, [facility], [facility], [id number] 03/26/2018 11:54 AM * Susan Peace RN [...] minimally. She has followed up with her environmental department manager in [facility] Dr. Jorge who recently saw her and [...] GRAFTS (Internal Mammary Artery and Endovascular Vein [place]) performed by Lance Pal MD at [facility] HX MAZE N/A 02/16/2018 MAZE PROCEDURE performed by Lance Pal MD at [facility] ANKLE SURGERY Left ankle reconstruction COLONOSCOPY HX [...] Time: 03/25/18 4:09 PM # # Low-High Napyvygh-A-VDT 0.00 0.00 - 0.05 NG/ML BNP POC [...] by pharmacy to her local pharmacy " [place], [place] " per patient request due to [...] (INR lab draws) *This RN CM called [facility] in [place] (phone: [phone]) to see if they would be able to check her INR when they do her blood draws. Kaylyn RN at [facility] stated the patient is a radha case and needs to reapply as she expires 04/06/18. She stated that once the patient reapplies that it will not be a problem checking her INR when her blood is drawn. *Kaylyn RN sent patient's H&P and labs for this hospital stay (phone: fax: [phone]) *Patient informed to reapply for radha next [...] Name, Phone and Availability #1: Bill () [phone] Does the patient use Medicaid Transportation?: No ? Discharge Disposition Durable Medical Equipment No service has been selected for the patient. Destination No service has been selected for the patient. Home Care No service has been selected for the patient. Dialysis/Infusion No service has been selected for the patient. Vivian Wilson RN, BSN, MSN Integrated Nursing Safe Deposit Box Rental ClerkSearch Engine Marketing Strategist [phone] M-F 8-5 pm * Care Plan - [...] with any further questions. Corrine Li Clinical Mill Manager 04/04/2018 * Care Plan - Sunshine [...] Name, Phone and Availability #1: Bill () [phone] Does the patient use Medicaid Transportation?: No ? Next Level of Care (Acute Psych discharges only) ? Discharge Disposition Durable Medical Equipment No service has been selected for the patient. Destination No service has been selected for the patient. Home Care No service has been selected for the patient. Dialysis/Infusion No service has been selected for the patient. Alesha Guerra [facility] p. [phone] * Response Teams - Cristal Montalvo RN [...] Name, Phone and Availability #1: Bill () [phone] Does the patient use Medicaid Transportation?: No ? Discharge Disposition Durable Medical Equipment No service has been selected for the patient. [facility] Destination No service has been selected for the patient. Home Care No service has been selected for the patient. [facility] Dialysis/Infusion No service has been selected for the patient. Vivian Wilson RN, BSN, MSN Integrated Nursing Safe Deposit Box Rental ClerkSearch Engine Marketing Strategist [phone] M-F 8-5 pm * Case Mgmt DC [...] supply card for Pradaxa and confirmed with [employer] program. Per Sarita with [facility], PAP is through [employer] who can be unpredictable on application/assistance response time and will reject and send application back to pt if all documents are not received. VIJAY updated [facility] [place] Addendum- SW updated Dr. Miner who plans to proceed with Pradaxa for anti-coagulation SW assisting with obtaining Pradaxa 30 day free supply card and with completing Pradaxa PAP application ? Financial ? Legal ? Other Disposition ? Expected Discharge Date Expected Discharge Date: 04/03/18 ? Transportation Does the patient need discharge transport arranged?: No Transportation Name, Phone and Availability #1: Bill () [phone] Does the patient use Medicaid Transportation?: No ? Next Level of Care (Acute Psych discharges only) ? Discharge Disposition Durable Medical Equipment No service has been selected for the patient. [facility] Destination No service has been selected for the patient. Home Care No service has been selected for the patient. Dialysis/Infusion No service has been selected for the patient. Alesha Guerra, [facility] p. [phone] * Care Plan - Erendira [...] Name, Phone and Availability #1: Bill () [phone] Does the patient use Medicaid Transportation?: No ? Next Level of Care (Acute Psych discharges only) ? Discharge Disposition Durable Medical Equipment No service has been selected for the patient. [facility] Destination No service has been selected for the patient. Home Care No service has been selected for the patient. Dialysis/Infusion No service has been selected for the patient. Alesha Guerra, [facility] p. [phone] * Care Plan - Sri [...] and palpitations." Patient Address/Phone [address] [facility] [address] (home) Emergency Contact Extended Emergency Contact Information Primary Emergency Contact: Jose [facility] Mobile Relation: Spouse Secondary Emergency Contact: Inocencia Matson [facility] Mobile Relation: Daughter Healthcare Directive Healthcare [...] Name, Phone and Availability #1: Jose () [phone] Does the patient use Medicaid Transportation?: No [...] assistance with medications at a clinic in [place] - unable to recall name. Pt's confirmed pt has been able to get all of her medications.) VIJAY discussed with team in [facility], currently only anticipate PO amoxicillin to be added at d/c. Per chart, pt received medication voucher at d/c on 02/27/18. ? Source of Income Source Of Income: SSDI ($1600/month) ? Financial Assistance Needed? Yes, pt currently applying for Medicaid. VIJAY contacted Hospital [facility] and received update from [employer] who states they obtained pt's signatures on [...] PCP Carla Wilson, , Dr. Mina (Cardiology) [phone] ? Pharmacy [facility] - [place], [place] - [address] [address] [facility] ([facility]) [address] [facility]. [place] [address] [address] ? Durable Medical Equipment Durable Medical Equipment at home: None ? Home Health Receiving home health: No ? Hemodialysis or Peritoneal Dialysis Undergoing hemodialysis or peritoneal dialysis: No ? Tube/Enteral Feeds Receive tube/enteral feeds: No ? Infusion Receive infusions: No ? Private Duty Private duty help used: No ? Home and Community Based Services Home and community based services: No ? Keanu White Keanu White: N/A ? Hospice Hospice: No ? Outpatient Therapy PT: No OT: No THINNER SPRAYER: No ? Alf Facility/Longterm SNF: No NH: No ? Inpatient Rehab IPR: No ? Long-Term Acute Care Hospital LTACH: No ? Acute Hospital Stay Acute Hospital Stay: Yes Was patient's stay within the last 30 days?: Yes When did patient receive care?: 02/27/18 Name of hospital: [facility] Readmission Code Group: 5. Medical Plan of Care - Treatment or Possible Complication 5. Medical Plan of Care - Treatment or Possible Complication: 5d. Possible complication of care Related or Unrelated?: Related Alesha Guerra [facility] p. [phone] * Procedures (Immed Post or [...] - 03/25/2018 6:05 PM CDT 1805: Room [place] [address] (Ready). Please call THOMPSON Caro @ [phone] for report. * Advanced Care Planning/Resuscitation Status [...] GRAFTS (Internal Mammary Artery and Endovascular Vein [place]) performed by Lance Pal MD at [facility] HX MAZE N/A 02/16/2018 MAZE PROCEDURE performed by Lance Pal MD at [facility] ANKLE SURGERY Left ankle reconstruction COLONOSCOPY HX [...] unable to yesterday. Pt A&Ox4. Awaiting MD lavarado. Belongings: shirt, pants Belongings at bedside. in this encounter Plan of Treatment Order Schedule Name Priority Associated Diagnoses Expected: 04/21/2018 (Approximate), Expires: 04/05/2019 BASIC METABOLIC PANEL STAT Chronic gastrointestinal bleeding as of this encounter Procedures Comments Procedure Name Priority Date/Time Associated Diagnosis ECG-SCAN 04/24/2018 5:40 PM GRAVEL WHEELER TELEMETRY STRIPS-SCAN 04/16/2018 12:49 PM CDT ECG-SCAN [...] encounter Results * ECG-SCAN (04/24/2018 5:40 PM GRAVEL WHEELER) Narrative Performed At Ordered by an unspecified [...] Phone Number MAIN LAB [address] [place] [address] * TRANSESOPHAGEAL ECHOCARDIOGRAM (04/08/2018 4:06 PM CDT) BSA 2.19 m2 OTHER OUTSIDE LAB CV ECHO PV INTEGRITY SPECIALIST Marisa RN, Anesthesia Team OTHER OUTSIDE LAB Interp Only Secondary Connector Armature Charu Golden OTHER OUTSIDE LAB Cardiology Ultrasound Siemens [id number] OTHER OUTSIDE LAB Machine TV rest pulmonary [...] MG/DL [facility] MAIN LAB Performing Organization Address [facility] Phone Number [facility] MAIN LAB [address] [place] [address] * POC GLUCOSE (04/08/2018 11:56 AM CDT) Glucose, POC 147 (H) 70 - 100 MG/DL [facility] MAIN LAB Performing Organization Address [facility] Phone Number [facility] MAIN LAB [address] [place] [address] * POC GLUCOSE (04/08/2018 8:37 AM CDT) Glucose, POC 216 (H) 70 - 100 MG/DL [facility] MAIN LAB Performing Organization Address [facility] Phone Number [facility] MAIN LAB [address] [place] [address] * MAGNESIUM (04/08/2018 5:00 AM CDT) Magnesium 2.3 1.6 - 2.6 mg/dL [facility] MAIN LAB Specimen Blood Performing Organization Address [facility] Phone Number [facility] MAIN LAB [address] [place] [address] * PTT (APTT) (04/08/2018 5:00 AM CDT) APTT 30.2Comment: NOTE NEW 20.0 - 36.0 SEC [facility] MAIN LAB REFERENCE RANGES Specimen Blood Performing Organization Address [facility] Phone Number [facility] MAIN LAB [address] [place] [address] * BASIC METABOLIC PANEL (04/08/2018 5:00 AM [...] for questions. Specimen Blood Performing Organization Address [facility] Phone Number MAIN LAB [address] [place] [address] * CBC (04/08/2018 5:00 AM CDT) White [...] LAB MPV 8.8 7 - 11 FL [facility] MAIN LAB Specimen Blood Performing Organization Address [facility] Phone Number MAIN LAB [address] [place] [address] * PROTIME INR (PT) (04/08/2018 5:00 AM CDT) INR 1.6 (H) 0.8 - 1.2 [facility] MAIN LAB Specimen Blood Performing Organization Address [facility] Phone Number [facility] MAIN LAB [address] [place] [address] * POC GLUCOSE (04/07/2018 9:00 PM CDT) Glucose, POC 157 (H) 70 - 100 MG/DL [facility] MAIN LAB Performing Organization Address [facility] Phone Number MAIN LAB [address] [place] [address] * POC GLUCOSE (04/07/2018 5:59 PM CDT) Glucose, POC 261 (H) 70 - 100 MG/DL [facility] MAIN LAB Performing Organization Address [facility]/Zipcode Phone Number [facility] MAIN LAB [address] [place] [address] * POC GLUCOSE (04/07/2018 2:29 PM CDT) Glucose, POC 141 (H) 70 - 100 MG/DL [facility] MAIN LAB Performing Organization Address [facility] Phone Number [facility] MAIN LAB [address] [place] [address] * COLONOSCOPY (04/07/2018 12:07 PM CDT) Provation Report Patient Name: Donnie CASTILLO OTHER RESULTS Procedure Date: 04/07/2018 12:07 PM CSN: [id number] Date of : 1955 Gender: Female Attending Physician: Skinny Marshall MD Procedure: Colonoscop y Indications: Hematochezia Providers: Skinny Marshall MD (Doctor), Conner Martines MD (Fellow), Mariana Suarez RN (Nurse), Elvia River Head Of Geography (Head Of Geography) Referring Physician: Felisa Hector Medications: Monitored Anesthesia [...] Address City/State/Zipcode Phone Number MAIN LAB [address] [place] [address] * CHEST SINGLE VIEW (04/07/2018 6:43 AM [...] on 04/07/2018 8:29 AM. Performing Organization Address City/[facility] Phone Number [facility] RAD RESULTS * MAGNESIUM (04/07/2018 4:25 AM CDT) Magnesium 2.3 1.6 - 2.6 mg/dL [facility] MAIN LAB Specimen Blood Performing Organization Address City/[facility] Phone Number [facility] MAIN LAB [address] [place] [address] * PTT (APTT) (04/07/2018 4:25 AM CDT) APTT 29.1Comment: NOTE NEW 20.0 - 36.0 SEC [facility] MAIN LAB REFERENCE RANGES Specimen Blood Performing Organization Address City/[facility] Phone Number [facility] MAIN LAB [address] [place] [address] * BASIC METABOLIC PANEL (04/07/2018 4:25 AM [...] for questions. Specimen Blood Performing Organization Address City/[facility]/Zipcode Phone Number [facility] LAB [address] [place] [address] * CBC (04/07/2018 4:25 AM CDT) White Blood Cells 4.4 (L) 4.5 - 11.0 K/UL [facility] MAIN LAB RBC 2.86 (L) 4.0 - 5.0 M/UL [facility] LAB Hemoglobin 9.1 (L) 12.0 - 15.0 GM/DL MAIN LAB Hematocrit 27.5 (L) 36 - 45 % [facility] MAIN LAB MCV 96.0 80 - 100 FL [facility] MAIN LAB MCH 32.0 26 - 34 PG MAIN LAB MCHC 33.3 32.0 - 36.0 G/DL MAIN LAB RDW 18.2 (H) 11 - 15 % [facility] MAIN LAB Platelet Count 130 (L) 150 - 400 K/UL MAIN LAB MPV 8.6 7 - 11 FL MAIN LAB Specimen Blood Performing Organization Address City/[facility]/Zipcode Phone Number [facility] LAB [address] [place] [address] * PROTIME INR (PT) (04/07/2018 4:25 AM CDT) INR 1.6 (H) 0.8 - 1.2 MAIN LAB Specimen Blood Performing Organization Address [facility] Phone Number MAIN LAB [address] [place] [address] * POC GLUCOSE (04/06/2018 9:06 PM CDT) Glucose, POC 165 (H) 70 - 100 MG/DL [facility] MAIN LAB Performing Organization Address [facility] Phone Number [facility] MAIN LAB [address] [place] [address] * POC GLUCOSE (04/06/2018 6:04 PM CDT) Glucose, POC 273 (H) 70 - 100 MG/DL [facility] MAIN LAB Performing Organization Address [facility] Phone Number [facility] MAIN LAB [address] [place] [address] * POC GLUCOSE (04/06/2018 11:56 AM CDT) Glucose, POC 138 (H) 70 - 100 MG/DL [facility] MAIN LAB Performing Organization Address [facility] Phone Number MAIN LAB [address] [place] [address] * POC GLUCOSE (04/06/2018 8:49 AM CDT) Glucose, POC 150 (H) 70 - 100 MG/DL [facility] MAIN LAB Performing Organization Address [facility] Phone Number MAIN LAB [address] [place] [address] * CHEST SINGLE VIEW (04/06/2018 6:30 AM [...] on 04/06/2018 9:32 AM. Performing Organization Address City/[facility] Phone Number RAD RESULTS * MAGNESIUM (04/06/2018 3:00 AM CDT) Magnesium 2.0Comment: SLT HEMOLYSIS 1.6 - 2.6 mg/dL MAIN LAB Performing Organization Address City/[facility] Phone Number MAIN LAB [address] [place] [address] * IRON + BINDING CAPACITY + %SAT+ FERRITIN (04/06/2018 3:00 AM CDT) Iron 23 (L)Comment: SLT HEMOLYSIS 50 - 160 MCG/DL [facility] MAIN LAB Iron Binding-TIBC 273 270 - 380 MCG/DL [facility] MAIN LAB % Saturation 8 (L) 28 - 42 % [facility] MAIN LAB Ferritin 259 (H) 10 - 200 NG/ML [facility] MAIN LAB Performing Organization Address City/[facility] Phone Number [facility] MAIN LAB [address] [place] [address] * FOLATE, SERUM (04/06/2018 3:00 AM CDT) Serum Folate >23.4 >3.9 NG/ML [facility] MAIN LAB Comment: SLT HEMOLYSIS NOTE NEW REFERENCE RANGES Performing Organization Address City/[facility] Phone Number [facility] MAIN LAB [address] [place] [address] * VITAMIN B12 (04/06/2018 3:00 AM CDT) Vitamin B12 1,234 (H) 180 - 914 PG/ML [facility] MAIN LAB Performing Organization Address [facility] Phone Number [facility] MAIN LAB [address] [place] [address] * PTT (APTT) (04/06/2018 3:00 AM CDT) APTT 20.4Comment: NOTE NEW 20.0 - 36.0 SEC [facility] MAIN LAB REFERENCE RANGES Specimen Blood Performing Organization Address [facility] Phone Number [facility] MAIN [facility] [address] [place] [address] * BASIC METABOLIC PANEL (04/06/2018 3:00 AM [...] for questions. Specimen Blood Performing Organization Address City/[facility]/Zipcode Phone Number [facility] MAIN LAB [address] [place] [address] * CBC (04/06/2018 3:00 AM CDT) White [...] MAIN LAB Specimen Blood Performing Organization Address City/[facility] Phone Number [facility] MAIN LAB [address] [place] [phone] * PROTIME INR (PT) (04/06/2018 3:00 AM CDT) INR 1.6 (H) 0.8 - 1.2 [facility] MAIN LAB Specimen Blood Performing Organization Address City/[facility]/Zipcode Phone Number [facility] MAIN LAB [address] [place] [address] * CBC (04/05/2018 9:48 PM CDT) White [...] MAIN LAB Specimen Blood Performing Organization Address City/[facility] Phone Number MAIN LAB [address] [place] [address] * POC GLUCOSE (04/05/2018 9:00 PM CDT) Glucose, POC 185 (H) 70 - 100 MG/DL [facility] MAIN LAB Performing Organization Address [facility] Phone Number MAIN LAB [address] [place] [address] * POC GLUCOSE (04/05/2018 4:17 PM CDT) Glucose, POC 186 (H) 70 - 100 MG/DL MAIN LAB Performing Organization Address [facility] Phone Number MAIN LAB [address] [place] [phone] * PTT (APTT) (04/05/2018 2:10 PM CDT) APTT 96.5 (H)Comment: NOTE NEW 20.0 - 36.0 SEC MAIN LAB REFERENCE RANGES Specimen Blood Performing Organization Address [facility] Phone Number MAIN LAB [address] [place] [address] * CBC (04/05/2018 2:10 PM CDT) White [...] MAIN LAB Specimen Blood Performing Organization Address [facility] Phone Number MAIN LAB [address] [place] [address] * POC GLUCOSE (04/05/2018 1:48 PM CDT) Glucose, POC 160 (H) 70 - 100 MG/DL [facility] MAIN LAB Performing Organization Address [facility] Phone Number [facility] MAIN LAB [address] [place] [address] * POC GLUCOSE (04/05/2018 9:03 AM CDT) Glucose, POC 199 (H) 70 - 100 MG/DL MAIN LAB Performing Organization Address [facility] Phone Number MAIN LAB [address] [place] [address] * CHEST SINGLE VIEW (04/05/2018 6:11 AM [...] on 04/05/2018 8:36 AM. Performing Organization Address [facility] Phone Number [facility] RESULTS * MAGNESIUM (04/05/2018 4:24 AM CDT) Magnesium 1.9 1.6 - 2.6 mg/dL [facility] MAIN LAB Performing Organization Address [facility] Phone Number MAIN LAB [address] [place] [address] * PTT (APTT) (04/05/2018 4:24 AM CDT) APTT 111.3 (H)Comment: NOTE NEW 20.0 - 36.0 SEC [facility] MAIN LAB REFERENCE RANGES Specimen Blood Performing Organization Address [facility] Phone Number MAIN LAB [address] [place] [address] * BASIC METABOLIC PANEL (04/05/2018 4:24 AM [...] for questions. Specimen Blood Performing Organization Address [facility] Phone Number MAIN LAB [address] [place] [address] * CBC (04/05/2018 4:24 AM CDT) White Blood Cells 4.3 (L) 4.5 - 11.0 K/UL [facility] MAIN LAB RBC 2.54 (L) 4.0 - 5.0 M/UL [facility] MAIN LAB Hemoglobin 8.0 (L) 12.0 - 15.0 GM/DL [facility] MAIN LAB Hematocrit 24.9 (L) 36 - 45 % [facility] MAIN LAB MCV 98.3 80 - 100 FL [facility] MAIN LAB MCH 31.7 26 - 34 PG [facility] MAIN LAB MCHC 32.3 32.0 - 36.0 G/DL [facility] MAIN LAB RDW 18.7 (H) 11 - 15 % [facility] MAIN LAB Platelet Count 128 (L) 150 - 400 K/UL [facility] MAIN LAB MPV 8.2 7 - 11 FL [facility] MAIN LAB Specimen Blood Performing Organization Address [facility] Phone Number MAIN LAB [address] [place] [address] * PROTIME INR (PT) (04/05/2018 4:24 AM CDT) INR 1.5 (H) 0.8 - 1.2 MAIN LAB Specimen Blood Performing Organization Address [facility] Phone Number [facility] MAIN [facility] [address] [place] [address] * POC GLUCOSE (04/04/2018 8:15 PM CDT) Glucose, POC 242 (H) 70 - 100 MG/DL [facility] MAIN LAB Performing Organization Address [facility] Phone Number [facility] MAIN LAB [address] [place] [address] * POC GLUCOSE (04/04/2018 1:22 PM CDT) Glucose, POC 150 (H) 70 - 100 MG/DL [facility] MAIN LAB Performing Organization Address [facility]/Zipcode Phone Number MAIN LAB [address] [place] [address] * POC GLUCOSE (04/04/2018 6:53 AM CDT) Glucose, POC 138 (H) 70 - 100 MG/DL MAIN LAB Performing Organization Address [facility] Phone Number MAIN LAB [address] [place] [address] * CHEST SINGLE VIEW (04/04/2018 5:11 AM [...] on 04/04/2018 9:11 AM. Performing Organization Address [facility] Phone Number RAD RESULTS * MAGNESIUM (04/04/2018 4:34 AM CDT) Magnesium 1.7 1.6 - 2.6 mg/dL [facility] MAIN LAB Specimen Blood Performing Organization Address [facility] Phone Number MAIN LAB [address] [place] [address] * BASIC METABOLIC PANEL (04/04/2018 4:34 AM [...] for questions. Specimen Blood Performing Organization Address [facility] Phone Number MAIN LAB [address] [place] [address] * CBC (04/04/2018 4:34 AM CDT) White [...] MAIN LAB Specimen Blood Performing Organization Address [facility] Phone Number MAIN LAB [address] [place] [address] * PTT (APTT) (04/04/2018 4:34 AM CDT) APTT 105.4 (H)Comment: NOTE NEW 20.0 - 36.0 SEC MAIN LAB REFERENCE RANGES Specimen Blood Performing Organization Address City/[facility] Phone Number MAIN LAB [address] [place] [address] * PROTIME INR (PT) (04/04/2018 4:34 AM CDT) INR 1.4 (H) 0.8 - 1.2 MAIN LAB Specimen Blood Performing Organization Address [facility] Phone Number MAIN LAB [address] [place] [address] * POC GLUCOSE (04/03/2018 8:55 PM CDT) Glucose, POC 133 (H) 70 - 100 MG/DL MAIN LAB Performing Organization Address [facility] Phone Number MAIN LAB [address] [place] [address] * HEMOGLOBIN & HEMATOCRIT (04/03/2018 8:11 PM CDT) Hemoglobin 8.1 (L) 12.0 - 15.0 GM/DL MAIN LAB Hematocrit 24.1 (L) 36 - 45 % MAIN LAB Specimen Blood Performing Organization Address [facility] Phone Number MAIN LAB [address] [place] [address] * POC GLUCOSE (04/03/2018 7:53 PM CDT) Glucose, POC 127 (H) 70 - 100 MG/DL [facility] MAIN LAB Performing Organization Address [facility] Phone Number MAIN LAB [address] [place] [address] * POC GLUCOSE (04/03/2018 4:54 PM CDT) Glucose, POC 180 (H) 70 - 100 MG/DL [facility] Performing Organization Address City/[facility]/Zipcode Phone Number [facility] [address] [place] [address] * POC GLUCOSE (04/03/2018 11:46 AM CDT) Glucose, POC 185 (H) 70 - 100 MG/DL [facility] Performing Organization Address [facility] Phone Number [facility] [address] [place] [address] * POC GLUCOSE (04/03/2018 6:24 AM CDT) Glucose, POC 212 (H) 70 - 100 MG/DL [facility] Performing Organization Address [facility] Phone Number [facility] [address] [place] [address] * CHEST SINGLE VIEW (04/03/2018 6:05 AM [...] on 04/03/2018 9:55 AM. Performing Organization Address [facility] Facility[facility] Phone Number RAD RESULTS * PTT (APTT) (04/03/2018 4:24 AM CDT) APTT 96.4 (H)Comment: NOTE NEW 20.0 - 36.0 SEC [facility] REFERENCE RANGES Specimen Blood Performing Organization Address [facility] Facility[facility] Phone Number MAIN LAB [address] [place] [address] * MAGNESIUM (04/03/2018 4:24 AM CDT) Magnesium 1.8 1.6 - 2.6 mg/dL [facility] Specimen Blood Performing Organization Address [facility] Phone Number MAIN LAB [address] [place] [address] * BASIC METABOLIC PANEL (04/03/2018 4:24 AM [...] for questions. Specimen Blood Performing Organization Address [facility] Phone Number MAIN LAB [address] [place] [address] * CBC (04/03/2018 4:24 AM CDT) White [...] MAIN LAB Specimen Blood Performing Organization Address City/[facility] Phone Number MAIN LAB [address] [place] [address] * PTT (APTT) (04/02/2018 9:04 PM CDT) APTT 85.7 (H)Comment: NOTE NEW 20.0 - 36.0 SEC [facility] REFERENCE RANGES Specimen Blood Performing Organization Address City/[facility] Phone Number MAIN LAB [address] [place] [phone] * POC GLUCOSE (04/02/2018 8:52 PM CDT) Glucose, POC 192 (H) 70 - 100 MG/DL [facility] Performing Organization Address [facility] Phone Number MAIN LAB [address] [place] [address] * POC GLUCOSE (04/02/2018 5:15 PM CDT) Glucose, POC 170 (H) 70 - 100 MG/DL [facility] Performing Organization Address City/[facility] Phone Number MAIN LAB [address] [place] [phone] * PTT (APTT) (04/02/2018 2:00 PM CDT) APTT 88.1 (H)Comment: NOTE NEW 20.0 - 36.0 SEC [facility] REFERENCE RANGES Specimen Blood Performing Organization Address City/[facility] Phone Number MAIN LAB [address] [place] [address] * POC GLUCOSE (04/02/2018 11:38 AM CDT) Glucose, POC 189 (H) 70 - 100 MG/DL [facility] Performing Organization Address [facility] Phone Number [facility] [address] [place] [address] * POC GLUCOSE (04/02/2018 6:57 AM CDT) Glucose, POC 174 (H) 70 - 100 MG/DL [facility] Performing Organization Address [facility] Phone Number [facility] [address] [place] [address] * PTT (APTT) (04/02/2018 5:20 AM CDT) APTT 126.3 (H)Comment: NOTE NEW 20.0 - 36.0 SEC [facility] REFERENCE RANGES Specimen Blood Performing Organization Address [facility] Phone Number [facility] [address] [place] [address] * MAGNESIUM (04/02/2018 5:20 AM CDT) Magnesium 1.7 1.6 - 2.6 mg/dL [facility] Specimen Blood Performing Organization Address [facility] Phone Number [facility] [address] [place] [phone] * BASIC METABOLIC PANEL (04/02/2018 5:20 AM [...] for questions. Specimen Blood Performing Organization Address City/[facility]/Zipcode Phone Number [facility] [address] [place] [address] * CBC (04/02/2018 5:20 AM CDT) White [...] MAIN LAB Specimen Blood Performing Organization Address City/[facility]/Zipcode Phone Number [facility] [address] [place] [address] * CHEST SINGLE VIEW (04/02/2018 4:54 AM [...] MAIN LAB Specimen Blood Performing Organization Address [facility] Phone Number [facility] [address] [place] [address] * PTT (APTT) (04/01/2018 11:24 PM CDT) APTT 26.4Comment: NOTE NEW 20.0 - 36.0 SEC [facility] REFERENCE RANGES Specimen Blood Performing Organization Address [facility] Phone Number MAIN LAB [address] [place] [phone] * POC GLUCOSE (04/01/2018 9:12 PM CDT) Glucose, POC 193 (H) 70 - 100 MG/DL [facility] Performing Organization Address [facility] Phone Number [facility] [address] [place] [phone] * CT HEAD WO CONTRAST (04/01/2018 7:51 [...] on 04/01/2018 9:49 PM. Performing Organization Address City/State/[facility] Phone Number [facility] RAD RESULTS * BASIC [...] for questions. Specimen Blood Performing Organization Address City/[facility]/Zipcode Phone Number MAIN LAB [address] [place] [address] * POC GLUCOSE (04/01/2018 5:57 PM CDT) Glucose, POC 143 (H) 70 - 100 MG/DL [facility] Performing Organization Address City/[facility] Phone Number MAIN LAB [address] [place] [address] * POC GLUCOSE (04/01/2018 12:13 PM CDT) Glucose, POC 140 (H) 70 - 100 MG/DL [facility] Performing Organization Address [facility] Phone Number MAIN LAB [address] [place] [address] * BLOOD GASES, PERIPHERAL VENOUS (04/01/2018 11:55 AM CDT) pH-Venous 7.24 (L) 7.30 - 7.40 MAIN LAB PCO2-Venous 65 (H) 36 - 50 MMHG MAIN LAB PO2-Venous 44 33 - 48 MM[facility] MAIN LAB Base Deficit-Venous 0.9 MMOL/L MAIN LAB O2 Sat-Venous 74.1 (H) 55 - 71 % MAIN LAB Vvgclloxyah-MBW-Egt 23.4 MMOL/L MAIN LAB Specimen Blood, venous - Blood Performing Organization Address [facility] Phone Number MAIN LAB [address] [place] [address] * EOSINOPHIL STAIN (04/01/2018 11:40 AM CDT) Battery Name EOSINOPHIL STAIN MAIN LAB Specimen Description URINE MAIN LAB Special Requests NONE MAIN LAB Ahuja's Stain NO EOSINOPHILS SEEN MAIN LAB Report Status FINAL MAIN LAB 04/02/2018 Specimen Urine Performing Organization Address [facility] Phone Number MAIN LAB [address] [place] [address] * CREATININE-URINE RANDOM (04/01/2018 11:40 AM CDT) Creatinine, Random 209 MG/DL MAIN LAB Specimen Urine - Urine Performing Organization Address [facility] Phone Number MAIN LAB [address] [place] [address] * UREA NITROGEN-URINE RANDOM (04/01/2018 11:40 AM CDT) Urea Nitrogen 294 MG/DL [facility] Specimen Urine - Urine Performing Organization Address [facility]/Zipcode Phone Number [facility] [address] [place] [address] * SODIUM-URINE RANDOM (04/01/2018 11:40 AM CDT) Sodium, Random 11 MMOL/L [facility] Specimen Urine - Urine Performing Organization Address [facility] Phone Number [facility] [address] [place] [address] * UA REFLEX CULTURE LABEL (04/01/2018 11:40 AM CDT) UA Reflex Culture LAB LABEL [facility] Specimen Urine Performing Organization Address [facility] Phone Number [facility] [address] [place] [address] * URINALYSIS MICROSCOPIC REFLEX TO CULTURE (04/01/2018 [...] MAIN LAB Specimen Urine Performing Organization Address [facility] Phone Number [facility] [address] [place] [address] * URINALYSIS DIPSTICK REFLEX TO CULTURE (04/01/2018 11:40 AM CDT) Color,UA YELLOW [facility] Turbidity,UA 1+ (A) CLEAR-CLEAR [facility] Specific [place]-Urine 1.014 1.003 - 1.035 [facility] MAIN LAB [...] MAIN LAB Specimen Urine Performing Organization Address [facility] Phone Number [facility] [address] [place] [address] * POC GLUCOSE (04/01/2018 8:25 AM CDT) Glucose, POC 169 (H) 70 - 100 MG/DL [facility] Performing Organization Address [facility] Phone Number [facility] [address] [place] [address] * URIC ACID (04/01/2018 7:50 AM CDT) Uric Acid 13.7 (H) 2.0 - 7.0 MG/DL MAIN LAB Specimen Blood Performing Organization Address [facility] Phone Number MAIN LAB [address] [place] [address] * CREATINE KINASE-CPK (04/01/2018 7:50 AM CDT) Creatine Kinase 16 (L) 21 - 215 U/L MAIN LAB Specimen Blood Performing Organization Address [facility] Phone Number [facility] [address] [place] [address] * MAGNESIUM (04/01/2018 7:50 AM CDT) Magnesium 1.7 1.6 - 2.6 mg/dL MAIN LAB Specimen Blood Performing Organization Address [facility] Phone Number MAIN LAB [address] [place] [address] * CBC AND DIFF (04/01/2018 7:50 AM CDT) White Blood Cells 7.2 4.5 - 11.0 K/UL MAIN LAB RBC 2.88 (L) 4.0 - 5.0 M/UL MAIN LAB Hemoglobin 9.1 (L) 12.0 - 15.0 GM/DL MAIN LAB Hematocrit 28.3 (L) 36 - 45 % MAIN LAB MCV 98.1 80 - 100 FL [facility] MCH 31.4 26 - 34 PG [facility] MCHC 32.0 32.0 - 36.0 G/DL MAIN LAB RDW 18.9 (H) 11 - 15 % [facility] Platelet Count 196 150 - 400 K/UL MAIN LAB MPV [...] MAIN LAB Specimen Blood Performing Organization Address City/[facility]/Zipcode Phone Number [facility] [address] [place] [address] * BASIC METABOLIC PANEL (04/01/2018 7:50 AM [...] for questions. Specimen Blood Performing Organization Address City/[facility]/Zipcode Phone Number [facility] [address] [place] [address] * CHEST SINGLE VIEW (04/01/2018 6:20 AM [...] 95.0 95 - 99 % MAIN LAB Hiidadjwwjj-YHY-Grk 23.7 21 - 28 MMOL/L [facility]IN [facility] Specimen Blood, arterial - Blood Performing Organization Address City/[facility]/Zipcode Phone Number [facility] [address] [place] [address] * CULTURE-BLOOD W/SENSITIVITY (03/31/2018 9:58 PM CDT) Battery Name BLOOD CULTURE MAIN LAB Specimen Description BLOOD [facility] LEFT ANTECUBITAL Special Requests NONE MAIN LAB Culture NO GROWTH 5 DAYS MAIN LAB Report Status FINAL MAIN LAB 04/06/2018 Specimen Blood Performing Organization Address City/[facility] Phone Number MAIN LAB [address] [place] [phone] * LACTIC ACID (BG - RAPID LACTATE) (03/31/2018 9:50 PM CDT) Lactic Acid,BG 1.3 0.5 - 2.0 MMOL/L MAIN LAB Specimen Blood Performing Organization Address City/[facility] Phone Number MAIN LAB [address] [place] [address] * CULTURE-BLOOD W/SENSITIVITY (03/31/2018 9:50 PM CDT) Battery Name BLOOD CULTURE MAIN LAB Specimen Description BLOOD MAIN LAB RIGHT ANTECUBITAL Special Requests NONE MAIN LAB Culture NO GROWTH 5 DAYS MAIN LAB Report Status FINAL MAIN LAB 04/06/2018 Specimen Blood Performing Organization Address City/[facility] Phone Number MAIN LAB [address] [place] [address] * POC GLUCOSE (03/31/2018 9:12 PM CDT) Glucose, POC 160 (H) 70 - 100 MG/DL [facility] Performing Organization Address City/[facility]/Zipcode Phone Number MAIN LAB [address] [place] [address] * POC GLUCOSE (03/31/2018 5:48 PM CDT) Glucose, POC 173 (H) 70 - 100 MG/DL [facility] Performing Organization Address City/[facility]/Zipcode Phone Number [facility] [address] [place] [address] * COMPREHENSIVE METABOLIC PANEL (03/31/2018 3:35 PM [...] Blood Performing Organization Address City/State/Zipcode Phone Number [facility] [address] [place] [address] * POC GLUCOSE (03/31/2018 12:17 PM CDT) Glucose, POC 137 (H) 70 - 100 MG/DL [facility] Performing Organization Address City/[facility]/Zipcode Phone Number [facility] [address] [place] [address] * 2-D + DOPPLER ECHOCARDIOGRAM (03/31/2018 11:57 [...] <=0.42 OTHER OUTSIDE LAB Cardiology Ultrasound Siemens [id number] OTHER OUTSIDE LAB Machine Left Ventricle Mass Index 86.94 44 - 88 g/m2 OTHER OUTSIDE LAB CV ECHO PV INTEGRITY SPECIALIST Marissa CHANDLER OTHER OUTSIDE LAB TV rest [...] on 03/31/2018 11:35 AM. Performing Organization Address City/[facility] Phone Number [facility] RAD RESULTS * POC GLUCOSE (03/31/2018 7:34 AM CDT) Glucose, POC 141 (H) 70 - 100 MG/DL [facility] MAIN LAB Performing Organization Address City/[facility] Phone Number [facility] MAIN LAB [address] [place] [address] * CHEST SINGLE VIEW (03/31/2018 4:50 AM [...] [facility] MAIN [facility] Base Deficit-Arterial 2.2 MMOL/L MAIN LAB O2 Sat-Arterial 94.8 (L) 95 - 99 % [facility] Imwmuwlbogn-OWR-Vne 22.5 21 - 28 MMOL/L [facility] Specimen Blood, arterial - Blood Performing Organization Address City/[facility]/Zipcode Phone Number [facility] [address] [place] [address] * COMPREHENSIVE METABOLIC PANEL (03/31/2018 3:50 AM CDT) Sodium 133 (L) 137 - 147 MMOL/L MAIN LAB Potassium 4.3 3.5 - 5.1 MMOL/L [facility] Chloride 99 98 - 110 MMOL/L [facility] Glucose 149 (H) 70 - 100 MG/DL MAIN LAB Blood Urea Nitrogen 48 (H) 7 - 25 MG/DL [facility] Creatinine 3.06 (H) 0.4 - 1.00 MG/DL [facility] Calcium 9.3 8.5 - 10.6 MG/DL MAIN LAB Total Protein 7.5 6.0 - 8.0 G/DL [facility]IN [facility] Total Bilirubin 0.7 0.3 - 1.2 MG/DL [facility]IN [facility] Albumin 3.4 (L) 3.5 - 5.0 G/DL [facility]IN [facility] Alk Phosphatase 59 25 - 110 U/L [facility] AST (SGOT) 14 7 - 40 U/L [facility] CO2 23 21 - 30 MMOL/L [facility] ALT (SGPT) 5 (L) 7 - 56 U/L [facility] Anion Gap 11 3 - 12 [facility] eGFR Non 16 (L) >60 mL/min MAIN LAB Comment: The eGFR is not validated for use in drug dosing adjustments.Continue to use estimated creatinine clearance per dosing reference text.Please contact the Clinical Pharmacist for questions. eGFR 19 (L) >60 mL/min [facility] Comment: The eGFR is not validated for use in drug dosing adjustments.Continue to use estimated creatinine clearance per dosing reference text.Please contact the Clinical Pharmacist for questions. Specimen Blood Performing Organization Address City/[facility]/Zipcode Phone Number [facility] [address] [place] [address] * CBC AND DIFF (03/31/2018 3:50 AM [...] City/State/Zipcode Phone Number [facility]IN [facility] [address] [place] [address] * POC GLUCOSE (03/30/2018 9:31 PM CDT) Glucose, POC 162 (H) 70 - 100 MG/DL [facility]IN [facility] Performing Organization Address City/State/Zipcode Phone Number [facility] [address] [place] [address] * POC GLUCOSE (03/30/2018 5:25 PM CDT) Glucose, POC 138 (H) 70 - 100 MG/DL [facility]IN [facility] Performing Organization Address City/[facility]/Zipcode Phone Number [facility]IN [facility] [address] [place] [address] * [employer] (03/30/2018 4:21 [...] on 03/30/2018 4:22 PM. Performing Organization Address [facility] Phone Number [facility] RAD RESULTS * POC GLUCOSE (03/30/2018 12:48 PM CDT) Glucose, POC 187 (H) 70 - 100 MG/DL [facility]IN [facility] Performing Organization Address [facility] Phone Number [facility] [address] [place] [address] * OSMOLALITY-URINE RANDOM (03/30/2018 12:31 PM CDT) Osmolality-Urine 364 50 - 1,400 MOS/KG [facility] MAIN [facility] Specimen Urine - Urine Performing Organization Address [facility] Phone Number [facility] [address] [place] [address] * UREA NITROGEN-URINE RANDOM (03/30/2018 12:31 PM CDT) Urea Nitrogen 311 MG/DL [facility]IN [facility] Specimen Urine - Urine Performing Organization Address [facility] Phone Number [facility] [address] [place] [address] * CREATININE-URINE RANDOM (03/30/2018 12:31 PM CDT) Creatinine, Random 244 MG/DL [facility] MAIN [facility] Specimen Urine - Urine Performing Organization Address [facility] Phone Number [facility] [address] [place] [address] * UA REFLEX CULTURE LABEL (03/30/2018 12:30 PM CDT) UA Reflex Culture LAB LABEL [facility] MAIN [facility] Specimen Urine Performing Organization Address [facility] Phone Number [facility] [address] [place] [address] * URINALYSIS MICROSCOPIC REFLEX TO CULTURE (03/30/2018 [...] MAIN LAB Specimen Urine Performing Organization Address [facility] Phone Number [facility] [address] [place] [address] * URINALYSIS DIPSTICK REFLEX TO CULTURE (03/30/2018 12:30 PM CDT) Color,UA CARLIE [facility] MAIN [facility] Turbidity,UA 1+ (A) CLEAR-CLEAR [facility] MAIN [facility] Specific [place]-Urine 1.021 1.003 - 1.035 K[facility] MAIN LAB [...] MAIN LAB Specimen Urine Performing Organization Address City/[facility]/Zipcode Phone Number [facility] [address] [place] [address] * TELEMETRY STRIPS-SCAN (03/30/2018 11:43 AM CDT) Narrative Performed At Ordered by an unspecified provider. * POC GLUCOSE (03/30/2018 9:02 AM CDT) Glucose, POC 195 (H) 70 - 100 MG/DL MAIN LAB Performing Organization Address City/[facility] Phone Number [facility] [address] [place] [address] * COMPREHENSIVE METABOLIC PANEL (03/30/2018 4:10 AM [...] for questions. Specimen Blood Performing Organization Address City/[facility]/Zipcode Phone Number MAIN LAB [address] [place] [address] * CBC AND DIFF (03/30/2018 4:10 AM [...] MAIN LAB Specimen Blood Performing Organization Address City/[facility]/Zipcode Phone Number [facility] [address] [place] [address] * CHEST SINGLE VIEW (03/30/2018 3:08 AM [...] on 03/30/2018 10:33 AM. Performing Organization Address City/[facility] Phone Number RAD RESULTS * POC GLUCOSE (03/29/2018 8:42 PM CDT) Glucose, POC 173 (H) 70 - 100 MG/DL [facility]IN [facility] Performing Organization Address City/[facility]/Zipcode Phone Number MAIN LAB [address] [place] [address] * POC GLUCOSE (03/29/2018 5:07 PM CDT) Glucose, POC 207 (H) 70 - 100 MG/DL [facility] MAIN [facility] Performing Organization Address [facility] Phone Number [facility] [address] [place] [address] * OSMOLALITY-URINE RANDOM (03/29/2018 4:02 PM CDT) Osmolality-Urine 342 50 - 1,400 MOS/KG MAIN LAB Specimen Urine - Urine Performing Organization Address City/[facility]/Zipcode Phone Number MAIN LAB [address] [place] [address] * UREA NITROGEN-URINE RANDOM (03/29/2018 4:02 PM CDT) Urea Nitrogen 247 MG/DL MAIN LAB Specimen Urine - Urine Performing Organization Address City/[facility] Phone Number MAIN LAB [address] [place] [address] * SODIUM-URINE RANDOM (03/29/2018 4:02 PM CDT) Sodium, Random 12 MMOL/L MAIN LAB Specimen Urine - Urine Performing Organization Address City/[facility] Phone Number MAIN LAB [address] [place] [address] * CREATININE-URINE RANDOM (03/29/2018 4:02 PM CDT) Creatinine, Random 194 MG/DL MAIN LAB Specimen Urine - Urine Performing Organization Address City/[facility]/Zipcode Phone Number MAIN LAB [address] [place] [address] * POC GLUCOSE (03/29/2018 11:33 AM CDT) Glucose, POC 214 (H) 70 - 100 MG/DL MAIN LAB Performing Organization Address City/[facility]/Zipcode Phone Number MAIN LAB [address] [place] [address] * POC GLUCOSE (03/29/2018 10:32 AM CDT) Glucose, POC 203 (H) 70 - 100 MG/DL MAIN LAB Performing Organization Address City/[facility]/Zipcode Phone Number MAIN LAB [address] [place] [address] * POC GLUCOSE (03/29/2018 8:37 AM CDT) Glucose, POC 215 (H) 70 - 100 MG/DL MAIN LAB Performing Organization Address City/[facility]/Zipcode Phone Number MAIN LAB [address] [place] [address] * EGD REPORT (03/29/2018 7:42 AM CDT) Provation Report Patient Name: Donnie CASTILLO OTHER RESULTS Procedure Date: 03/29/2018 7:42 AM CSN: [id number] Date of : 1955 Gender: Female Attending Physician: Dannielle Covington MD Procedure: Upper GI endoscopy Indications: Iron deficiency anemia Providers: Dannielle Covington MD (Doctor), Conner Martines MD (Fellow), Myla Meza RN (Nurse), Lynette Aguero Head Of Geography (Head Of Geography) Referring Physician: Dominic Fuller MD, Deepak Rubin, [...] of the duodenum were normal. Impression: - [place]-colored mucosa suspicious for Long's esophagus. Biopsy is [...] discussed her endoscopic findings with Dr. Maier (transit bus operator). 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 Please consult hepatology team for further management. Scope In: 11:08:40 AM Scope Out: 11:17:33 AM Total Procedure Duration Time 0 hours 8 minutes 53 seconds Procedure Code(s): --- Professional --- 85906, Esophagogastroduodenoscopy, flexible, transoral; diagnostic, including collection of specimen(s) by brushing or washing, when performed (separate procedure) Diagnosis Code(s): --- Professional --- K22.8, Other specified diseases of esophagus I85.00, Esophageal varices without bleeding K76.6, Portal hypertension K31.89, Other diseases of stomach and duodenum K31.819, Angiodysplasia of stomach and duodenum without bleeding D50.9, Iron deficiency anemia, unspecified CPT copyright 2016 [employer]. All rights reserved. The codes documented in this report are preliminary and upon finisher hot strip review may be revised to meet current [...] Organization Address City/State/Zipcode Phone Number MAIN LAB [address] [place] [address] * CBC AND DIFF (03/29/2018 5:00 AM [...] Address City/State/Zipcode Phone Number MAIN LAB [address] [place] [address] * POC GLUCOSE (03/28/2018 9:23 PM CDT) Glucose, POC 241 (H) 70 - 100 MG/DL [facility]IN [facility] Performing Organization Address City/[facility]/Zipcode Phone Number [facility] MAIN [facility] [address] [place] [address] * POC GLUCOSE (03/28/2018 5:14 PM CDT) Glucose, POC 231 (H) 70 - 100 MG/DL [facility] MAIN [facility] Performing Organization Address City/[facility]/Zipcode Phone Number MAIN LAB [address] [place] [address] * POC GLUCOSE (03/28/2018 1:13 PM CDT) Glucose, POC 196 (H) 70 - 100 MG/DL [facility] MAIN [facility] Performing Organization Address City/[facility]/Zipcode Phone Number [facility] MAIN [facility] [address] [place] [address] * POC GLUCOSE (03/28/2018 9:24 AM CDT) Glucose, POC 219 (H) 70 - 100 MG/DL [facility] MAIN [facility] Performing Organization Address City/[facility]/Zipcode Phone Number MAIN LAB [address] [place] [address] * COMPREHENSIVE METABOLIC PANEL (03/28/2018 4:50 AM [...] Organization Address City/State/Zipcode Phone Number MAIN LAB [address] [place] [address] * CBC AND DIFF (03/28/2018 4:50 AM [...] Lymphocytes 14 (L) 24 - 44 % MAIN LAB Monocytes 9 4 - 12 % MAIN LAB Eosinophils 5 0 - 5 % MAIN LAB Basophils 0 0 - 2 % [facility] Absolute Neutrophil Count 3.90 1.8 - 7.0 K/UL MAIN LAB Absolute Lymph Count 0.80 (L) 1.0 - 4.8 K/UL MAIN LAB Absolute Monocyte Count 0.50 0 - 0.80 K/UL MAIN LAB Absolute Eosinophil Count 0.30 0 - 0.45 K/UL [facility] LAB Absolute Basophil Count 0.00 0 - 0.20 K/UL MAIN LAB Specimen Blood Performing Organization Address City/[facility]/Zipcode Phone Number MAIN LAB [address] [place] [address] * POC GLUCOSE (03/27/2018 9:23 PM CDT) Glucose, POC 200 (H) 70 - 100 MG/DL MAIN LAB Performing Organization Address City/[facility] Phone Number [facility] [address] [place] [address] * POC GLUCOSE (03/27/2018 6:31 PM CDT) Glucose, POC 201 (H) 70 - 100 MG/DL MAIN LAB Performing Organization Address [facility] Phone Number MAIN LAB [address] [place] [address] * ECG-SCAN (03/27/2018 11:05 AM CDT) Narrative Performed At Ordered by an unspecified provider. * POC GLUCOSE (03/27/2018 9:59 AM CDT) Glucose, POC 191 (H) 70 - 100 MG/DL [facility] MAIN [facility] Performing Organization Address City/[facility]/Zipcode Phone Number MAIN LAB [address] [place] [address] * POC GLUCOSE (03/27/2018 7:37 AM CDT) Glucose, POC 213 (H) 70 - 100 MG/DL MAIN LAB Performing Organization Address City/[facility]/Zipcode Phone Number [facility] MAIN [facility] [address] [place] [address] * COMPREHENSIVE METABOLIC PANEL (03/27/2018 5:30 AM [...] [facility] MAIN [facility] [address] [place] [address] * CBC AND DIFF (03/27/2018 5:30 AM [...] MAIN LAB Specimen Blood Performing Organization Address [facility] Phone Number MAIN LAB [address] [place] [id number] * URINALYSIS, MICROSCOPIC (03/27/2018 2:59 AM CDT) WBCs,UA 0-2 0 - 2 /HPF [facility] MAIN [facility] RBCs,UA 0-2 0 - 3 /HPF [facility] MAIN [facility] MucousUA TRACE [facility] MAIN [facility] Squamous Epithelial Cells 5-10 0 - 5 [facility] MAIN [facility] Hyaline Cast PACKED [facility] MAIN [facility] Specimen Urine - Urine Performing Organization Address [facility] Phone Number MAIN LAB [address] [place] [address] * URINALYSIS DIPSTICK (03/27/2018 2:59 AM CDT) Color,UA YELLOW [facility] MAIN [facility] Turbidity,UA CLEAR CLEAR-CLEAR [facility] MAIN [facility] Specific [place]-Urine 1.015 1.003 - 1.035 [facility] MAIN LAB [...] Specimen Urine - Urine Performing Organization Address [facility] Phone Number [facility]IN [facility] [address] [place] [address] * TRANSFUSE RBC'S NON-BLEEDING PT (03/26/2018 10:53 PM CDT) * TRANSFUSE RBC'S NON-BLEEDING PT (03/26/2018 10:53 PM CDT) * POC GLUCOSE (03/26/2018 9:29 PM CDT) Glucose, POC 233 (H) 70 - 100 MG/DL [facility] MAIN [facility] Performing Organization Address [facility] Phone Number [facility] [address] [place] [address] * POC GLUCOSE (03/26/2018 3:10 PM CDT) Glucose, POC 177 (H) 70 - 100 MG/DL [facility] MAIN [facility] Performing Organization Address [facility] Phone Number [facility]IN [facility] [address] [place] [address] * CHEST X-RAY INSPIRATION/EXPIRATION (03/26/2018 1:41 PM CDT) Impressions Performed At Persistent moderate cardiomegaly with findings of CHF, left basilar [facility] RAD RESULTS consolidation and small left pleural effusion. Finalized by Pancho Green M.D. on 03/26/2018 2:02 PM. Dictated by Pnacho Green M.D. on 03/26/2018 2:00 PM. Narrative [...] The needle was removed, and an 8 [place] pigtail all purpose drainage catheter was advanced [...] The needle was removed, and an 8 [place] pigtail all purpose drainage catheter was advanced [...] the drugs utilized were: Fentanyl and Versed IChauncey M.D, the attending radiologist, was present for [...] MG/DL [facility] MAIN LAB Performing Organization Address [facility] Phone Number [facility]IN [facility] [address] [place] [address] * CBC AND DIFF (03/26/2018 2:02 AM [...] K/UL [facility] MAIN [facility] Performing Organization Address [facility] Phone Number [facility] [address] [place] [address] * COMPREHENSIVE METABOLIC PANEL (03/26/2018 2:02 AM [...] Clinical Pharmacist for questions. Performing Organization Address City/[facility]/Zipcode Phone Number MAIN LAB [address] [place] [address] * TROPONIN-I (03/26/2018 2:02 AM CDT) Troponin-I 0.01 0.0 - 0.05 NG/ML MAIN LAB Specimen Blood Performing Organization Address City/[facility]/Zipcode Phone Number MAIN LAB [address] [place] [address] * POC GLUCOSE (03/25/2018 9:25 PM CDT) Glucose, POC 190 (H) 70 - 100 MG/DL MAIN LAB Performing Organization Address City/[facility]/Zipcode Phone Number MAIN LAB [address] [place] [address] * CULTURE-BLOOD W/SENSITIVITY (03/25/2018 8:58 PM CDT) Battery Name BLOOD CULTURE MAIN LAB Specimen Description BLOOD MAIN LAB LEFT UPPER ARM Special Requests NONE [facility] MAIN [facility] Culture NO GROWTH 5 DAYS [facility] MAIN [facility] Report Status FINAL MAIN LAB 03/31/2018 Specimen Blood Performing Organization Address City/[facility]/Zipcode Phone Number MAIN LAB [address] [place] [address] * PHOSPHORUS (03/25/2018 8:53 PM CDT) Phosphorus 3.3Comment: NOTE NEW REFERENCE 2.0 - 4.5 MG/DL MAIN LAB RANGES Specimen Blood Performing Organization Address [facility] Phone Number MAIN LAB [address] [place] [address] * MAGNESIUM (03/25/2018 8:53 PM CDT) Magnesium 1.7 1.6 - 2.6 mg/dL MAIN LAB Specimen Blood Performing Organization Address [facility] Phone Number MAIN LAB [address] [place] [address] * TYPE & CROSSMATCH (03/25/2018 8:53 PM CDT) Units Ordered 1 MAIN LAB Crossmatch Expires 03/28/2018 MAIN LAB Record Check FOUND MAIN LAB ABO/RH(D) A POS MAIN LAB Antibody Screen NEG [facility] MAIN [facility] Patient has a history of a clinically significant antibody. Unit Number [id number] MAIN LAB Blood Component Type RBC,ADSOL,LEUKO REDUCED MAIN LAB Unit Division 0 MAIN LAB Status OF Unit TRANSFUSED MAIN LAB Transfusion Status OK TO TRANSFUSE MAIN LAB Crossmatch Result COMPATIBLE, GEL MAIN LAB Specimen Blood Performing Organization Address [facility] Phone Number MAIN LAB [address] [place] [address] * LACTIC ACID (BG - RAPID LACTATE) (03/25/2018 8:53 PM CDT) Lactic Acid,BG 1.3 0.5 - 2.0 MMOL/L MAIN LAB Specimen Blood Performing Organization Address [facility] Phone Number MAIN LAB [address] [place] [address] * CULTURE-BLOOD W/SENSITIVITY (03/25/2018 8:53 PM CDT) Battery Name BLOOD CULTURE [facility] MAIN LAB Specimen Description BLOOD [facility] MAIN LAB LEFT ANTECUBITAL Special Requests NONE [facility] MAIN LAB Culture NO GROWTH 5 DAYS [facility] MAIN LAB Report Status FINAL [facility] MAIN LAB 03/31/2018 Specimen Blood Performing Organization Address [facility]/Zipcode Phone Number MAIN LAB [address] [place] [address] * TROPONIN-I (03/25/2018 8:53 PM CDT) Troponin-I 0.01 0.0 - 0.05 NG/ML [facility] MAIN LAB Specimen Blood Performing Organization Address City/State/Zipcode Phone Number [facility] MAIN LAB [address] [place] [address] * CT HEAD WO CONTRAST (03/25/2018 6:23 [...] on 03/25/2018 8:54 PM. Performing Organization Address City/[facility] Phone Number RAD RESULTS * BNP POC ER (03/25/2018 4:16 PM CDT) BNP POC 327.0 (H) 0 - 100 PG/ML [facility] MAIN LAB Performing Organization Address [facility] Phone Number MAIN LAB [address] [place] [address] * POC TROPONIN (03/25/2018 4:09 PM CDT) Ojwpqate-S-VVM 0.00 0.00 - 0.05 NG/ML MAIN LAB Performing Organization Address [facility] Phone Number MAIN LAB [address] [place] [address] * PHOSPHORUS (03/25/2018 4:07 PM CDT) Phosphorus 3.5Comment: NOTE NEW REFERENCE 2.0 - 4.5 MG/DL [facility] MAIN LAB RANGES Specimen Blood Performing Organization Address [facility] Phone Number MAIN LAB [address] [place] [address] * MAGNESIUM (03/25/2018 4:07 PM CDT) Magnesium 1.8 1.6 - 2.6 mg/dL MAIN LAB Specimen Blood Performing Organization Address [facility] Phone Number MAIN LAB [address] [place] [address] * COMPREHENSIVE METABOLIC PANEL (03/25/2018 4:07 PM [...] Address City/State/Zipcode Phone Number [facility] MAIN [facility] [address] [place] [address] * CBC AND DIFF (03/25/2018 4:07 PM [...] Phone Number MAIN LAB [address] [place] [address] * CHEST SINGLE VIEW (03/25/2018 3:50 PM [...] kidney failure, unspecified Coronary artery disease involving [place] coronary artery of [place] heart with angina pectoris (HCC) Hyperlipidemia, unspecified [...] 81 mg, Oral, DAILY, First dose on Thu03/25/18 at 1900, Until Discontinued 81 mg Given [...] Given 500 mg, Intravenous, ONCE, 1 dose, Thu04/02/18 at 0815 04/03/2018 10:27 AM CDT 500 [...] CONTINUOUS, Starting Ashley 04/01/18 at 0930, Until Thu04/05/18 at 1041, Initiate at 5 mg/hr Titrate [...] Given 100 mg, Intravenous, ONCE, 1 dose, [facility] 04/05/18 at 1045, PROTECT FROM LIGHT, 03/25/2018 9:32 PM CDT 40 mg furosemide (LASIX) injection 40 mg Given 40 mg, Intravenous, ONCE, 1 dose, [facility] 03/25/18 at 1900, PROTECT FROM LIGHT, 03/31/2018 9:10 AM CDT 40 mg furosemide (LASIX) injection 40 mg Given 40 mg, 4 mL, Intravenous, ONCE, 1 dose, [facility] 03/31/18 at 0915, PROTECT FROM LIGHT, 03/31/2018 2:38 PM CDT 40 mg furosemide (LASIX) injection 40 mg Given 40 mg, Intravenous, ONCE, 1 dose, [facility] 03/31/18 at 1400, PROTECT FROM LIGHT, 04/01/2018 12:56 AM CDT 40 mg furosemide (LASIX) injection 40 mg Given 40 mg, Intravenous, ONCE, 1 dose, [facility] 04/01/18 at 0000, PROTECT FROM LIGHT, 04/01/2018 5:16 PM CDT 60 mg furosemide (LASIX) injection 60 mg Given 60 mg, Intravenous, ONCE, 1 dose, [facility] 04/01/18 at 1530, Give the first 60 mg, then give the 2nd 60 mg 15 minutes afterwards, for a total dose of 120 mg PROTECT FROM LIGHT, 04/01/2018 5:37 PM CDT 60 mg furosemide (LASIX) injection 60 mg Given 60 mg, Intravenous, ONCE, 1 dose, [facility] 04/01/18 at 1545, Give 15 minutes after the first 60 mg, for a total dose of 120 mg PROTECT FROM LIGHT, 04/06/2018 6:45 AM CDT 60 mg furosemide (LASIX) injection 60 mg Given 60 mg, Intravenous, ONCE, 1 dose, [facility] 04/06/18 at 0630, PROTECT FROM LIGHT, 04/01/2018 11:53 AM CDT 80 mg furosemide (LASIX) injection 80 mg Given 80 mg, 8 mL, Intravenous, ONCE, 1 dose, [facility] 04/01/18 at 0930, PROTECT FROM LIGHT, [...] , Starting Ashley 04/01/18 at 2300, Until 04/02/18 at 0752, Weight-Based Heparin Protocol - See [...] 11, 17 administer 2 units insulin, at , * administer 0 units. -POC glucose 181-220mg/dL at administer 4 units insulin, at , * administer 2 units. -POC glucose 221-260mg/dL at administer 6 units insulin, at * administer 4 units. -POC glucose 261-300mg/dL at administer 8 units insulin, at , * administer 6 units. -POC glucose 301-350mg/dL at administer 10 units insulin, at , * administer 8 units. -POC glucose 351-400mg/dL at administer 12 units insulin, at * administer 10 units. -POC glucose >400mg/dL [...] Given 296 mL, Oral, ONCE, 1 dose, Thu04/05/18 at 1700, Until clear. For colonoscopy prep, [...] Bag over 1 Hours, ONCE, 1 dose, [facility] 04/01/18 at 1245, Each 1gm delivers 8.1 mEq Magnesium., 04/04/2018 1:23 PM CDT 2 g magnesium sulfate 4 g/50 mL IVPB Given - New 2 g, Intravenous, 50 mL, Administer over Bag 4 Hours, ONCE, 1 dose, [place] 04/04/18 at 1200, Each 1gm delivers 8.1 [...]
--- OUTSIDE RECORDS SUMMARY | 2018-06-18 13:43 | XMS REPORT | Encounter Summary ---
Author Author [facility] Organization [facility] Address Unknown Phone Unavailable Care Team Providers Care Diathermy Equipment Repairer Name Role Phone Carla Wilson MD PCP Naima Field MD Unavailable Winnie Jorge MD Unavailable Reason for Visit * Reason Comments Shortness of Breath CABG x4 1 month ago, sob, in and out of afib and flutter Encounter Details Care Team Description Date Type Department Skinny Marshall MD [address] [facility] [address] [place] [address] COLONOSCOPY 04/07/2018 Surgery Gastrointenstinal Endoscopy [address] [place], [place] [id number] Social History Date Tobacco Use Types Packs/Day [...] Date/Time Associated Diagnosis ECG-SCAN 04/24/2018 5:40 PM ACCOUNTING RECONCILIATION CLERK TELEMETRY STRIPS-SCAN 04/16/2018 12:49 PM CDT ECG-SCAN [...] encounter Results * ECG-SCAN (04/24/2018 5:40 PM ACCOUNTING RECONCILIATION CLERK) Narrative Performed At Ordered by an unspecified [...] Phone Number MAIN LAB [address] [place] [address] * TRANSESOPHAGEAL ECHOCARDIOGRAM (04/08/2018 4:06 PM CDT) BSA 2.19 m2 OTHER OUTSIDE LAB CV ECHO PV INDEPENDENT LIVING INSTRUCTOR Marisa RN, Anesthesia Team OTHER OUTSIDE LAB Interp Only Probation Manager Charu Golden OTHER OUTSIDE LAB Cardiology Ultrasound Siemens [id number] OTHER OUTSIDE LAB Machine TV rest pulmonary [...] from the prior study. Performing Organization Address City/[facility]/Zipcode Phone Number OTHER OUTSIDE LAB * POC GLUCOSE (04/08/2018 12:41 PM CDT) Glucose, POC 136 (H) 70 - 100 MG/DL [facility] MAIN [facility] Performing Organization Address City/[facility] Phone Number [facility] [address] [place] [address] * POC GLUCOSE (04/08/2018 11:56 AM CDT) Glucose, POC 147 (H) 70 - 100 MG/DL [facility] MAIN [facility] Performing Organization Address City/[facility] Phone Number [facility] [address] [place] [address] * POC GLUCOSE (04/08/2018 8:37 AM CDT) Glucose, POC 216 (H) 70 - 100 MG/DL [facility] MAIN [facility] Performing Organization Address [facility] Phone Number [facility] MAIN [facility] [address] [place] [address] * MAGNESIUM (04/08/2018 5:00 AM CDT) Magnesium 2.3 1.6 - 2.6 mg/dL MAIN LAB Specimen Blood Performing Organization Address [facility] Phone Number MAIN LAB [address] [place] [address] * PTT (APTT) (04/08/2018 5:00 AM CDT) APTT 30.2Comment: NOTE NEW 20.0 - 36.0 SEC [facility] MAIN [facility] REFERENCE RANGES Specimen Blood Performing Organization [facility] Phone Number [facility] MAIN [facility] [address] [place] [address] * BASIC METABOLIC PANEL (04/08/2018 5:00 AM [...] for questions. Specimen Blood Performing Organization Address [facility] Phone Number MAIN LAB [address] [place] [address] * CBC (04/08/2018 5:00 AM CDT) White [...] MAIN LAB Specimen Blood Performing Organization Address [facility] Phone Number MAIN LAB [address] [place] [address] * PROTIME INR (PT) (04/08/2018 5:00 AM CDT) INR 1.6 (H) 0.8 - 1.2 MAIN LAB Specimen Blood Performing Organization Address [facility] Phone Number MAIN LAB [address] [place] [address] * POC GLUCOSE (04/07/2018 9:00 PM CDT) Glucose, POC 157 (H) 70 - 100 MG/DL [facility] MAIN [facility] Performing Organization Address [facility] Phone Number MAIN LAB [address] [place] [address] * POC GLUCOSE (04/07/2018 5:59 PM CDT) Glucose, POC 261 (H) 70 - 100 MG/DL MAIN LAB Performing Organization Address [facility] Phone Number JONATHAN MAIN LAB [address] [place] [address] * POC GLUCOSE (04/07/2018 2:29 PM CDT) Glucose, POC 141 (H) 70 - 100 MG/DL MAIN LAB Performing Organization Address [facility] Phone Number MAIN LAB [address] [place] [address] * COLONOSCOPY (04/07/2018 12:07 PM CDT) Provation Report Patient Name: Donnie CASTILLO OTHER RESULTS Procedure Date: 04/07/2018 12:07 PM CSN: [id number] Date of : 1955 Gender: Female Attending Physician: Skinny Marshall MD Procedure: Colonoscop y Indications: Hematochezia Providers: Skinny Marshall MD (Doctor), Conner Martines MD (Fellow), Mariana Suarez RN (Nurse), Elvia River Cloth Beamer (Cloth Beamer) Referring Physician: Felisa Sneed Medications: Monitored Anesthesia [...] On: 04/07/2018 12:07 PM Performing Organization Address City/State/[facility] Phone Number OTHER RESULTS * POC GLUCOSE (04/07/2018 7:56 AM CDT) Glucose, POC 133 (H) 70 - 100 MG/DL [facility] MAIN [facility] Performing Organization Address City/[facility] Phone Number MAIN LAB [address] [place] [address] * CHEST SINGLE VIEW (04/07/2018 6:43 AM CDT) Impressions Performed At Persistent left pleural effusion associated with atelectasis of left lower lobe. [facility] RAD RESULTS Stable cardiomegaly and mediastinal widening with interval improvement in pulmonary vascular congestion. Finalized by dEdy Hauser M.D. on 04/07/2018 8:31 AM. Dictated [...] AM. Performing Organization Address City/State/Zipcode Phone Number [facility] RAD RESULTS * MAGNESIUM (04/07/2018 4:25 AM CDT) Magnesium 2.3 1.6 - 2.6 mg/dL [facility] MAIN LAB Specimen Blood Performing Organization Address City/[facility]/Zipcode Phone Number [facility] MAIN LAB [address] [place] [address] * PTT (APTT) (04/07/2018 4:25 AM CDT) APTT 29.1Comment: NOTE NEW 20.0 - 36.0 SEC [facility] MAIN LAB REFERENCE RANGES Specimen Blood Performing Organization Address City/[facility]/Zipcode Phone Number MAIN LAB [address] [place] [phone] * BASIC METABOLIC PANEL (04/07/2018 4:25 AM [...] for questions. Specimen Blood Performing Organization Address City/[facility]/Zipcode Phone Number MAIN LAB [address] [place] [phone] * CBC (04/07/2018 4:25 AM CDT) White [...] MAIN LAB Specimen Blood Performing Organization Address City/[facility] Phone Number MAIN LAB [address] [place] [address] * PROTIME INR (PT) (04/07/2018 4:25 AM CDT) INR 1.6 (H) 0.8 - 1.2 MAIN LAB Specimen Blood Performing Organization Address [facility] Phone Number MAIN LAB [address] [place] [address] * POC GLUCOSE (04/06/2018 9:06 PM CDT) Glucose, POC 165 (H) 70 - 100 MG/DL [facility] MAIN [facility] Performing Organization Address [facility] Phone Number MAIN LAB [address] [place] [address] * POC GLUCOSE (04/06/2018 6:04 PM CDT) Glucose, POC 273 (H) 70 - 100 MG/DL MAIN LAB Performing Organization Address [facility] Phone Number MAIN LAB [address] [place] [address] * POC GLUCOSE (04/06/2018 11:56 AM CDT) Glucose, POC 138 (H) 70 - 100 MG/DL MAIN LAB Performing Organization Address [facility] Phone Number MAIN LAB [address] [place] [address] * POC GLUCOSE (04/06/2018 8:49 AM CDT) Glucose, POC 150 (H) 70 - 100 MG/DL MAIN LAB Performing Organization Address [facility] Phone Number MAIN LAB [address] [place] [address] * CHEST SINGLE VIEW (04/06/2018 6:30 AM [...] on 04/06/2018 9:32 AM. Performing Organization Address City/State/[facility] Phone Number RAD RESULTS * MAGNESIUM (04/06/2018 3:00 AM CDT) Magnesium 2.0Comment: SLT HEMOLYSIS 1.6 - 2.6 mg/dL [facility] MAIN LAB Performing Organization Address City/[facility] Phone Number [facility] [address] [place] [address] * IRON + BINDING CAPACITY + %SAT+ FERRITIN (04/06/2018 3:00 AM CDT) Iron 23 (L)Comment: SLT HEMOLYSIS 50 - 160 MCG/DL [facility] MAIN LAB Iron Binding-TIBC 273 270 - 380 MCG/DL [facility] MAIN [facility] % Saturation 8 (L) 28 - 42 % [facility] MAIN LAB Ferritin 259 (H) 10 - 200 NG/ML [facility] MAIN [facility] Performing Organization Address [facility] Phone Number [facility] MAIN [facility] [address] [place] [address] * FOLATE, SERUM (04/06/2018 3:00 AM CDT) Serum Folate >23.4 >3.9 NG/ML [facility] MAIN LAB Comment: SLT HEMOLYSIS NOTE NEW REFERENCE RANGES Performing Organization Address [facility] Phone Number [facility] MAIN [facility] [address] [place] [phone] * VITAMIN B12 (04/06/2018 3:00 AM CDT) Vitamin B12 1,234 (H) 180 - 914 PG/ML [facility] MAIN LAB Performing Organization Address [facility] Phone Number [facility] MAIN [facility] [address] [place] [phone] * PTT (APTT) (04/06/2018 3:00 AM CDT) APTT 20.4Comment: NOTE NEW 20.0 - 36.0 SEC [facility] MAIN LAB REFERENCE RANGES Specimen Blood Performing Organization Address [facility] Phone Number [facility] MAIN [facility] [address] [place] [address] * BASIC METABOLIC PANEL (04/06/2018 3:00 AM [...] for questions. Specimen Blood Performing Organization Address City/[facility]/Zipcode Phone Number MAIN LAB [address] [place] [address] * CBC (04/06/2018 3:00 AM CDT) White [...] MAIN LAB Specimen Blood Performing Organization Address [facility] Phone Number MAIN LAB [address] [place] [phone] * PROTIME INR (PT) (04/06/2018 3:00 AM CDT) INR 1.6 (H) 0.8 - 1.2 MAIN LAB Specimen Blood Performing Organization Address City/[facility]/Zipcode Phone Number [facility] LAB [address] [place] [address] * CBC (04/05/2018 9:48 PM CDT) White [...] MAIN LAB Specimen Blood Performing Organization Address [facility] Phone Number MAIN LAB [address] [place] [address] * POC GLUCOSE (04/05/2018 9:00 PM CDT) Glucose, POC 185 (H) 70 - 100 MG/DL [facility] MAIN [facility] Performing Organization Address [facility] Phone Number MAIN LAB [address] [place] [address] * POC GLUCOSE (04/05/2018 4:17 PM CDT) Glucose, POC 186 (H) 70 - 100 MG/DL MAIN LAB Performing Organization Address [facility] Phone Number MAIN LAB [address] [place] [address] * PTT (APTT) (04/05/2018 2:10 PM CDT) APTT 96.5 (H)Comment: NOTE NEW 20.0 - 36.0 SEC MAIN LAB REFERENCE RANGES Specimen Blood Performing Organization Address [facility] Phone Number MAIN LAB [address] [place] [address] * CBC (04/05/2018 2:10 PM CDT) White [...] LAB MCHC 32.7 32.0 - 36.0 G/DL [facility] MAIN LAB RDW 18.1 (H) 11 - 15 % [facility] MAIN LAB Platelet Count 139 (L) 150 - 400 K/UL [facility] MAIN [facility] MPV 8.2 7 - 11 FL [facility] MAIN LAB Specimen Blood Performing Organization Address [facility] Phone Number MAIN LAB [address] [place] [address] * POC GLUCOSE (04/05/2018 1:48 PM CDT) Glucose, POC 160 (H) 70 - 100 MG/DL [facility] MAIN [facility] Performing Organization Address [facility] Phone Number MAIN LAB [address] [place] [address] * POC GLUCOSE (04/05/2018 9:03 AM CDT) Glucose, POC 199 (H) 70 - 100 MG/DL [facility] MAIN [facility] Performing Organization Address [facility] Phone Number MAIN LAB [address] [place] [address] * CHEST SINGLE VIEW (04/05/2018 6:11 AM [...] on 04/05/2018 8:36 AM. Performing Organization Address [facility] Phone Number RAD RESULTS * MAGNESIUM (04/05/2018 4:24 AM CDT) Magnesium 1.9 1.6 - 2.6 mg/dL MAIN LAB Performing Organization Address [facility] Phone Number MAIN LAB [address] [place] [address] * PTT (APTT) (04/05/2018 4:24 AM CDT) APTT 111.3 (H)Comment: NOTE NEW 20.0 - 36.0 SEC [facility] MAIN [facility] REFERENCE RANGES Specimen Blood Performing Organization Address [facility] Phone Number MAIN LAB [address] [place] [address] * BASIC METABOLIC PANEL (04/05/2018 4:24 AM [...] for questions. Specimen Blood Performing Organization Address City/[facility] Phone Number MAIN LAB [address] [place] [address] * CBC (04/05/2018 4:24 AM CDT) White [...] LAB MCHC 32.3 32.0 - 36.0 G/DL [facility] LAB RDW 18.7 (H) 11 - 15 % MAIN LAB Platelet Count 128 (L) 150 - 400 K/UL MAIN LAB MPV 8.2 7 - 11 FL MAIN LAB Specimen Blood Performing Organization Address [facility] Phone Number MAIN LAB [address] [place] [address] * PROTIME INR (PT) (04/05/2018 4:24 AM CDT) INR 1.5 (H) 0.8 - 1.2 MAIN LAB Specimen Blood Performing Organization Address [facility] Phone Number MAIN LAB [address] [place] [phone] * POC GLUCOSE (04/04/2018 8:15 PM CDT) Glucose, POC 242 (H) 70 - 100 MG/DL [facility] MAIN [facility] Performing Organization Address [facility]/Zipcode Phone Number [facility] MAIN [facility] [address] [place] [address] * POC GLUCOSE (04/04/2018 1:22 PM CDT) Glucose, POC 150 (H) 70 - 100 MG/DL [facility] MAIN LAB Performing Organization Address [facility] Phone Number [facility] [address] [place] [address] * POC GLUCOSE (04/04/2018 6:53 AM CDT) Glucose, POC 138 (H) 70 - 100 MG/DL [facility] MAIN LAB Performing Organization Address [facility] Phone Number MAIN LAB [address] [place] [address] * CHEST SINGLE VIEW (04/04/2018 5:11 AM [...] on 04/04/2018 9:11 AM. Performing Organization Address City/[facility]/Zipcode Phone Number RAD RESULTS * MAGNESIUM (04/04/2018 4:34 AM CDT) Magnesium 1.7 1.6 - 2.6 mg/dL MAIN LAB Specimen Blood Performing Organization Address [facility] Phone Number MAIN LAB [address] [place] [address] * BASIC METABOLIC PANEL (04/04/2018 4:34 AM [...] for questions. Specimen Blood Performing Organization Address [facility] Phone Number MAIN LAB [address] [place] [address] * CBC (04/04/2018 4:34 AM CDT) White [...] MAIN LAB Specimen Blood Performing Organization Address City/[facility] Phone Number MAIN LAB [address] [place] [address] * PTT (APTT) (04/04/2018 4:34 AM CDT) APTT 105.4 (H)Comment: NOTE NEW 20.0 - 36.0 SEC MAIN LAB REFERENCE RANGES Specimen Blood Performing Organization Address [facility] Phone Number MAIN LAB [address] [place] [address] * PROTIME INR (PT) (04/04/2018 4:34 AM CDT) INR 1.4 (H) 0.8 - 1.2 MAIN LAB Specimen Blood Performing Organization Address [facility] Phone Number MAIN LAB [address] [place] [address] * POC GLUCOSE (04/03/2018 8:55 PM CDT) Glucose, POC 133 (H) 70 - 100 MG/DL MAIN LAB Performing Organization Address [facility] Phone Number MAIN LAB [address] [place] [address] * HEMOGLOBIN & HEMATOCRIT (04/03/2018 8:11 PM CDT) Hemoglobin 8.1 (L) 12.0 - 15.0 GM/DL MAIN LAB Hematocrit 24.1 (L) 36 - 45 % MAIN LAB Specimen Blood Performing Organization Address [facility] Phone Number MAIN LAB [address] [place] [address] * POC GLUCOSE (04/03/2018 7:53 PM CDT) Glucose, POC 127 (H) 70 - 100 MG/DL [facility] MAIN LAB Performing Organization Address [facility] Phone Number [facility] [address] [place] [address] * POC GLUCOSE (04/03/2018 4:54 PM CDT) Glucose, POC 180 (H) 70 - 100 MG/DL [facility] MAIN LAB Performing Organization Address [facility] Phone Number [facility] [address] [place] [address] * POC GLUCOSE (04/03/2018 11:46 AM CDT) Glucose, POC 185 (H) 70 - 100 MG/DL [facility] MAIN LAB Performing Organization Address [facility] Phone Number [facility] [address] [place] [address] * POC GLUCOSE (04/03/2018 6:24 AM CDT) Glucose, POC 212 (H) 70 - 100 MG/DL [facility] MAIN LAB Performing Organization Address [facility] Phone Number [facility] MAIN [facility] [address] [place] [address] * CHEST SINGLE VIEW (04/03/2018 6:05 AM [...] on 04/03/2018 9:55 AM. Performing Organization Address [facility] Phone Number RAD RESULTS * PTT (APTT) (04/03/2018 4:24 AM CDT) APTT 96.4 (H)Comment: NOTE NEW 20.0 - 36.0 SEC [facility] MAIN LAB REFERENCE RANGES Specimen Blood Performing Organization Address [facility] Phone Number MAIN LAB [address] [place] [address] * MAGNESIUM (04/03/2018 4:24 AM CDT) Magnesium 1.8 1.6 - 2.6 mg/dL [facility] MAIN LAB Specimen Blood Performing Organization Address [facility] Phone Number MAIN LAB [address] [place] [address] * BASIC METABOLIC PANEL (04/03/2018 4:24 AM [...] for questions. Specimen Blood Performing Organization Address City/[facility]/Zipcode Phone Number MAIN LAB [address] [place] [address] * CBC (04/03/2018 4:24 AM CDT) White Blood Cells 5.1 4.5 - 11.0 K/UL [facility] MAIN LAB RBC 2.53 (L) 4.0 - 5.0 M/UL [facility] MAIN LAB Hemoglobin 8.0 (L) 12.0 - 15.0 GM/DL [facility] MAIN LAB Hematocrit 24.6 (L) 36 - 45 % [facility] MAIN LAB MCV 97.2 80 - 100 FL [facility] MAIN LAB MCH 31.6 26 - 34 PG [facility] MAIN LAB MCHC 32.5 32.0 - 36.0 G/DL [facility] MAIN LAB RDW 18.0 (H) 11 - 15 % [facility] MAIN LAB Platelet Count 158 150 - 400 K/UL [facility] MAIN LAB MPV 8.4 7 - 11 FL [facility] MAIN LAB Specimen Blood Performing Organization Address City/[facility] Phone [facility] [address] [place] [address] * PTT (APTT) (04/02/2018 9:04 PM CDT) APTT 85.7 (H)Comment: NOTE NEW 20.0 - 36.0 SEC [facility] MAIN LAB REFERENCE RANGES Specimen Blood Performing Organization Address City/[facility]/Zipcode Phone Number [facility] MAIN [facility] [address] [place] [address] * POC GLUCOSE (04/02/2018 8:52 PM CDT) Glucose, POC 192 (H) 70 - 100 MG/DL [facility] MAIN LAB Performing Organization Address City/[facility]/Zipcode Phone Number [facility] MAIN [facility] [address] [place] [address] * POC GLUCOSE (04/02/2018 5:15 PM CDT) Glucose, POC 170 (H) 70 - 100 MG/DL [facility] MAIN LAB Performing Organization Address City/[facility]/Zipcode Phone Number [facility] MAIN [facility] [address] [place] [address] * PTT (APTT) (04/02/2018 2:00 PM CDT) APTT 88.1 (H)Comment: NOTE NEW 20.0 - 36.0 SEC [facility] MAIN LAB REFERENCE RANGES Specimen Blood Performing Organization Address City/[facility] Phone Number [facility] [address] [place] [address] * POC GLUCOSE (04/02/2018 11:38 AM CDT) Glucose, POC 189 (H) 70 - 100 MG/DL [facility] MAIN LAB Performing Organization Address [facility] Phone Number [facility] MAIN [facility] [address] [place] [address] * POC GLUCOSE (04/02/2018 6:57 AM CDT) Glucose, POC 174 (H) 70 - 100 MG/DL [facility] MAIN LAB Performing Organization Address [facility] Phone Number MAIN LAB [address] [place] [address] * PTT (APTT) (04/02/2018 5:20 AM CDT) APTT 126.3 (H)Comment: NOTE NEW 20.0 - 36.0 SEC [facility] MAIN LAB REFERENCE RANGES Specimen Blood Performing Organization Address [facility] Phone Number [facility] MAIN [facility] [address] [place] [phone] * MAGNESIUM (04/02/2018 5:20 AM CDT) Magnesium 1.7 1.6 - 2.6 mg/dL [facility] MAIN LAB Specimen Blood Performing Organization Address [facility] Phone Number [facility] [address] [place] [phone] * BASIC METABOLIC PANEL (04/02/2018 5:20 AM [...] for questions. Specimen Blood Performing Organization Address City/[facility]/Zipcode Phone Number MAIN LAB [address] [place] [address] * CBC (04/02/2018 5:20 AM CDT) White [...] MAIN LAB Specimen Blood Performing Organization Address City/[facility] Phone Number MAIN LAB [address] [place] [address] * CHEST SINGLE VIEW (04/02/2018 4:54 AM [...] MAIN LAB Specimen Blood Performing Organization Address City/[facility]/Zipcode Phone Number [facility] MAIN [facility] [address] [place] [address] * PTT (APTT) (04/01/2018 11:24 PM CDT) APTT 26.4Comment: NOTE NEW 20.0 - 36.0 SEC [facility] MAIN LAB REFERENCE RANGES Specimen Blood Performing Organization Address [facility] Phone Number [facility] [address] [place] [address] * POC GLUCOSE (04/01/2018 9:12 PM CDT) Glucose, POC 193 (H) 70 - 100 MG/DL [facility] MAIN [facility] Performing Organization Address [facility] Phone Number [facility] [address] [place] [address] * CT HEAD WO CONTRAST (04/01/2018 7:51 [...] for questions. Specimen Blood Performing Organization Address City/[facility] Phone Number MAIN LAB [address] [place] [address] * POC GLUCOSE (04/01/2018 5:57 PM CDT) Glucose, POC 143 (H) 70 - 100 MG/DL [facility] MAIN LAB Performing Organization Address [facility] Phone Number MAIN LAB [address] [place] [address] * POC GLUCOSE (04/01/2018 12:13 PM CDT) Glucose, POC 140 (H) 70 - 100 MG/DL MAIN LAB Performing Organization Address [facility] Phone Number MAIN LAB [address] [place] [address] * BLOOD GASES, PERIPHERAL VENOUS (04/01/2018 11:55 AM CDT) pH-Venous 7.24 (L) 7.30 - 7.40 MAIN LAB PCO2-Venous 65 (H) 36 - 50 MMHG MAIN LAB PO2-Venous 44 33 - 48 MMHG MAIN LAB Base Deficit-Venous 0.9 MMOL/L MAIN LAB O2 Sat-Venous 74.1 (H) 55 - 71 % MAIN LAB [id number]-Cas 23.4 MMOL/L MAIN LAB Specimen Blood, venous - Blood Performing Organization Address [facility] Phone Number MAIN LAB [address] [place] [address] * EOSINOPHIL STAIN (04/01/2018 11:40 AM CDT) Battery Name EOSINOPHIL STAIN MAIN LAB Specimen Description URINE MAIN LAB Special Requests NONE MAIN LAB Ahuja's Stain NO EOSINOPHILS SEEN [facility] MAIN LAB Report Status FINAL MAIN LAB 04/02/2018 Specimen Urine Performing Organization Address [facility] Phone Number MAIN LAB [address] [place] [address] * CREATININE-URINE RANDOM (04/01/2018 11:40 AM CDT) Creatinine, Random 209 MG/DL KU MAIN LAB Specimen Urine - Urine Performing Organization Address [facility] Phone Number [facility] MA[facility] [address] [place] [address] * UREA NITROGEN-URINE RANDOM (04/01/2018 11:40 AM CDT) Urea Nitrogen 294 MG/DL [facility] MAIN LAB Specimen Urine - Urine Performing Organization Address [facility] Phone Number [facility] MAIN LAB [address] [place] [address] * SODIUM-URINE RANDOM (04/01/2018 11:40 AM CDT) Sodium, Random 11 MMOL/L [facility] MAIN LAB Specimen Urine - Urine Performing Organization Address [facility] Phone Number [facility] MAIN LAB [address] [place] [address] * UA REFLEX CULTURE LABEL (04/01/2018 11:40 AM CDT) UA Reflex Culture LAB LABEL K[facility] MAIN LAB Specimen Urine Performing Organization Address [facility] Phone Number K[facility] MAIN LAB [address] [place] [phone] * URINALYSIS MICROSCOPIC REFLEX TO CULTURE (04/01/2018 [...] Urine Performing Organization Address [facility] Phone Number [facility] MAIN LAB [address] [place] [address] * URINALYSIS DIPSTICK REFLEX TO CULTURE (04/01/2018 11:40 AM CDT) Color,UA YELLOW [facility] MAIN LAB Turbidity,UA 1+ (A) CLEAR-CLEAR [facility] MAIN LAB Specific [place]-Urine 1.014 1.003 - 1.035 KU MAIN LAB [...] MAIN LAB Specimen Urine Performing Organization Address [facility] Phone Number [facility] MAIN LAB [address] [place] [address] * POC GLUCOSE (04/01/2018 8:25 AM CDT) Glucose, POC 169 (H) 70 - 100 MG/DL [facility] MAIN LAB Performing Organization Address [facility] Phone Number MAIN LAB [address] [place] [address] * URIC ACID (04/01/2018 7:50 AM CDT) Uric Acid 13.7 (H) 2.0 - 7.0 MG/DL MAIN LAB Specimen Blood Performing Organization Address [facility] Phone Number MAIN LAB [address] [place] [address] * CREATINE KINASE-CPK (04/01/2018 7:50 AM CDT) Creatine Kinase 16 (L) 21 - 215 U/L MAIN LAB Specimen Blood Performing Organization Address [facility] Phone Number KU MAIN LAB [address] [place] [address] * MAGNESIUM (04/01/2018 7:50 AM CDT) Magnesium 1.7 1.6 - 2.6 mg/dL MAIN LAB Specimen Blood Performing Organization Address [facility] [place] [facility] Phone Number K[facility] MAIN LAB [address] [place] [address] * CBC AND DIFF (04/01/2018 7:50 AM [...] MAIN LAB Specimen Blood Performing Organization Address City/[facility] Phone Number [facility] MAIN LAB [address] [place] [address] * BASIC METABOLIC PANEL (04/01/2018 7:50 AM [...] for questions. Specimen Blood Performing Organization Address City/[facility] Phone Number MAIN LAB [address] [place] [address] * CHEST SINGLE VIEW (04/01/2018 6:20 AM [...] on 04/01/2018 11:38 AM. Performing Organization Address City/State/[facility] Phone Number [facility] RAD RESULTS * BLOOD GASES, ARTERIAL (03/31/2018 11:57 PM CDT) pH-Arterial 7.27 (L) 7.35 - 7.45 MAIN LAB pCO2-Arterial 59 (H) 35 - 45 MMHG MAIN LAB pO2-Arterial 76 (L) 80 - 100 MM[facility] MAIN LAB Base Deficit-Arterial 0.8 MMOL/L MAIN LAB O2 Sat-Arterial 95.0 95 - 99 % MAIN LAB Gzmasrfiqlj-BNY-Lmk 23.7 21 - 28 MMOL/L MAIN LAB Specimen Blood, arterial - Blood Performing Organization Address City/[facility] Phone Number MAIN LAB [address] [place] [address] * CULTURE-BLOOD W/SENSITIVITY (03/31/2018 9:58 PM CDT) Battery Name BLOOD CULTURE MAIN LAB Specimen Description BLOOD MAIN LAB LEFT ANTECUBITAL Special Requests NONE MAIN LAB Culture NO GROWTH 5 DAYS MAIN LAB Report Status FINAL MAIN LAB 04/06/2018 Specimen Blood Performing Organization Address City/[facility] Phone Number MAIN LAB [address] [place] [address] * LACTIC ACID (BG - RAPID LACTATE) (03/31/2018 9:50 PM CDT) Lactic Acid,BG 1.3 0.5 - 2.0 MMOL/L MAIN LAB Specimen Blood Performing Organization Address [facility] Phone Number MAIN LAB [address] [place] [address] * CULTURE-BLOOD W/SENSITIVITY (03/31/2018 9:50 PM CDT) Battery Name BLOOD CULTURE MAIN LAB Specimen Description BLOOD MAIN LAB RIGHT ANTECUBITAL Special Requests NONE MAIN LAB Culture NO GROWTH 5 DAYS MAIN LAB Report Status FINAL MAIN LAB 04/06/2018 Specimen Blood Performing Organization Address City/[facility]/Zipcode Phone Number MAIN LAB [address] [place] [address] * POC GLUCOSE (03/31/2018 9:12 PM CDT) Glucose, POC 160 (H) 70 - 100 MG/DL MAIN LAB Performing Organization Address City/[facility]/Zipcode Phone Number MAIN LAB [address] [place] [address] * POC GLUCOSE (03/31/2018 5:48 PM CDT) Glucose, POC 173 (H) 70 - 100 MG/DL K[facility] MAIN LAB Performing Organization Address City/[facility] Phone Number MA[facility] LAB [address] [place] [address] * COMPREHENSIVE METABOLIC PANEL (03/31/2018 3:35 PM [...] for questions. Specimen Blood Performing Organization Address City/[facility]/Zipcode Phone Number MAIN LAB [address] [place] [address] * POC GLUCOSE (03/31/2018 12:17 PM CDT) Glucose, POC 137 (H) 70 - 100 MG/DL K[facility] MAIN LAB Performing Organization Address City/[facility]/Zipcode Phone Number [facility] MAIN LAB [address] [place] [address] * 2-D + DOPPLER ECHOCARDIOGRAM (03/31/2018 11:57 [...] <=0.42 OTHER OUTSIDE LAB Cardiology Ultrasound Siemens [id number] OTHER OUTSIDE LAB Machine Left Ventricle Mass Index 86.94 44 - 88 g/m2 OTHER OUTSIDE LAB CV ECHO PV INDEPENDENT LIVING INSTRUCTOR Marissa CHANDLER OTHER OUTSIDE LAB TV rest [...] on 03/31/2018 11:35 AM. Performing Organization Address City/State[facility] Phone Number [facility] RAD RESULTS * POC GLUCOSE (03/31/2018 7:34 AM CDT) Glucose, POC 141 (H) 70 - 100 MG/DL [facility] MAIN LAB Performing Organization Address City/[facility] Phone Number [facility] MAIN LAB [address] [place] [address] * CHEST SINGLE VIEW (03/31/2018 4:50 AM [...] 95 - 99 % K[facility] MAIN LAB Wtmbyqfvwfv-ALE-Fuj 22.5 21 - 28 MMOL/L K[facility] MAIN LAB Specimen Blood, arterial - Blood Performing Organization Address City/[facility]/Zipcode Phone Number MAIN LAB [address] [place] [address] * COMPREHENSIVE METABOLIC PANEL (03/31/2018 3:50 AM [...] Organization Address City/State/Zipcode Phone Number MAIN LAB [address] [place] [address] * CBC AND DIFF (03/31/2018 3:50 AM [...] MAIN LAB Specimen Blood Performing Organization Address City/[facility]/Zipcode Phone Number [facility] MAIN LAB [address] [place] [address] * POC GLUCOSE (03/30/2018 9:31 PM CDT) Glucose, POC 162 (H) 70 - 100 MG/DL K[facility] MAIN LAB Performing Organization Address City/[facility]/Zipcode Phone Number JONATHAN MAIN LAB [address] [place] [address] * POC GLUCOSE (03/30/2018 5:25 PM CDT) Glucose, POC 138 (H) 70 - 100 MG/DL [facility] MAIN LAB Performing Organization Address [facility] Phone Number [facility] MAIN LAB [address] [place] [address] * [employer] (03/30/2018 4:21 [...] on 03/30/2018 4:22 PM. Performing Organization Address [facility] Phone Number [facility] RAD RESULTS * POC GLUCOSE (03/30/2018 12:48 PM CDT) Glucose, POC 187 (H) 70 - 100 MG/DL [employer] MAIN LAB Performing Organization Address [facility]/[employer] Phone Number [employer] MAIN LAB [address] [place] [address] * OSMOLALITY-URINE RANDOM (03/30/2018 12:31 PM CDT) Osmolality-Urine 364 50 - 1,400 MOS/KG [facility] MAIN LAB Specimen Urine - Urine Performing Organization Address [facility]/Zipcode Phone Number K[facility] MAIN LAB [address] [place] [address] * UREA NITROGEN-URINE RANDOM (03/30/2018 12:31 PM CDT) Urea Nitrogen 311 MG/DL [facility] MAIN LAB Specimen Urine - Urine Performing Organization Address [facility] Phone Number [facility] MAIN [facility] [address] [place] [address] * CREATININE-URINE RANDOM (03/30/2018 12:31 PM CDT) Creatinine, Random 244 MG/DL [facility] MAIN LAB Specimen Urine - Urine Performing Organization Address [facility] Phone Number K[facility] MAIN LAB [address] [place] [address] * UA REFLEX CULTURE LABEL (03/30/2018 12:30 PM CDT) UA Reflex Culture LAB LABEL [facility] MAIN LAB Specimen Urine Performing Organization Address [facility] Phone Number K[facility] MAIN LAB [address] [place] [address] * URINALYSIS MICROSCOPIC REFLEX TO CULTURE (03/30/2018 [...] MAIN LAB Specimen Urine Performing Organization Address [facility] Phone Number [facility] MAIN LAB [address] [place] [address] * URINALYSIS DIPSTICK REFLEX TO CULTURE (03/30/2018 12:30 PM CDT) Color,UA CARLIE [facility] MAIN LAB Turbidity,UA 1+ (A) CLEAR-CLEAR [facility] MAIN LAB Specific [place]-Urine 1.021 1.003 - 1.035 KU MAIN LAB [...] MAIN LAB Specimen Urine Performing Organization Address [facility] Phone Number MAIN LAB [address] [place] [phone] * TELEMETRY STRIPS-SCAN (03/30/2018 11:43 AM CDT) Narrative Performed At Ordered by an unspecified provider. * POC GLUCOSE (03/30/2018 9:02 AM CDT) Glucose, POC 195 (H) 70 - 100 MG/DL MAIN LAB Performing Organization Address [facility] Phone Number MAIN LAB [address] [place] [address] * COMPREHENSIVE METABOLIC PANEL (03/30/2018 4:10 AM [...] for questions. Specimen Blood Performing Organization Address City/[facility]/Zipcode Phone Number [facility] MAIN LAB [address] [place] [phone] * CBC AND DIFF (03/30/2018 4:10 AM [...] MAIN LAB Specimen Blood Performing Organization Address City/[facility]/Zipcode Phone Number [facility] MAIN LAB [address] [place] [address] * CHEST SINGLE VIEW (03/30/2018 3:08 AM [...] MG/DL K[facility] MAIN LAB Performing Organization Address City/[facility] Phone Number [facility] MA[facility] [address] [place] [address] * POC GLUCOSE (03/29/2018 5:07 PM CDT) Glucose, POC 207 (H) 70 - 100 MG/DL [facility] MAIN LAB Performing Organization Address City/[facility] Phone Number MAIN LAB [address] [place] [address] * OSMOLALITY-URINE RANDOM (03/29/2018 4:02 PM CDT) Osmolality-Urine 342 50 - 1,400 MOS/KG MAIN LAB Specimen Urine - Urine Performing Organization Address City/[facility] Phone Number MAIN LAB [address] [place] [address] * UREA NITROGEN-URINE RANDOM (03/29/2018 4:02 PM CDT) Urea Nitrogen 247 MG/DL MAIN LAB Specimen Urine - Urine Performing Organization Address City/[facility] Phone Number MAIN LAB [address] [place] [address] * SODIUM-URINE RANDOM (03/29/2018 4:02 PM CDT) Sodium, Random 12 MMOL/L MAIN LAB Specimen Urine - Urine Performing Organization Address City/[facility] Phone Number MAIN LAB [address] [place] [address] * CREATININE-URINE RANDOM (03/29/2018 4:02 PM CDT) Creatinine, Random 194 MG/DL MAIN LAB Specimen Urine - Urine Performing Organization Address [facility] Phone Number MAIN LAB [address] [place] [address] * POC GLUCOSE (03/29/2018 11:33 AM CDT) Glucose, POC 214 (H) 70 - 100 MG/DL MAIN LAB Performing Organization Address City/[facility]/Zipcode Phone Number MAIN LAB [address] [place] [address] * POC GLUCOSE (03/29/2018 10:32 AM CDT) Glucose, POC 203 (H) 70 - 100 MG/DL MAIN LAB Performing Organization Address City/[facility]/Zipcode Phone Number MAIN LAB [address] [place] [address] * POC GLUCOSE (03/29/2018 8:37 AM CDT) Glucose, POC 215 (H) 70 - 100 MG/DL MAIN LAB Performing Organization Address City/State/Zipcode Phone Number MAIN LAB [address] [place] [address] * EGD REPORT (03/29/2018 7:42 AM CDT) Provation Report Patient Name: Donnie CASTILLO OTHER RESULTS Procedure Date: 03/29/2018 7:42 AM CSN: [id number] Date of : 1955 Gender: Female Attending Physician: Dannielle Covington MD Procedure: Upper GI endoscopy Indications: Iron deficiency anemia Providers: Dnanielle Covington MD (Doctor), Conner Martines MD (Fellow), Myla Meza RN (Nurse), Lynette Aguero Cloth Beamer (Cloth Beamer) Referring Physician: Dominic Fuller MD, Deepak Rubin, [...] of the duodenum were normal. Impression: - [place]-colored mucosa suspicious for Long's esophagus. Biopsy is [...] discussed her endoscopic findings with Dr. Maier (community health outreach worker). 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 Please consult hepatology team for further management. Scope In: 11:08:40 AM Scope Out: 11:17:33 AM Total Procedure Duration Time 0 hours 8 minutes 53 seconds Procedure Code(s): --- Professional --- 56428, Esophagogastroduodenoscopy, flexible, transoral; diagnostic, including collection of specimen(s) by brushing or washing, when performed (separate procedure) Diagnosis Code(s): --- Professional --- K22.8, Other specified diseases of esophagus I85.00, Esophageal varices without bleeding K76.6, Portal hypertension K31.89, Other diseases of stomach and duodenum K31.819, Angiodysplasia of stomach and duodenum without bleeding D50.9, Iron deficiency anemia, unspecified CPT copyright 2016 [employer]. All rights reserved. The codes documented in this report are preliminary and upon software engineering supervisor review may be revised to meet current [...] Phone Number MAIN LAB [address] [place] [address] * CBC AND DIFF (03/29/2018 5:00 AM [...] MAIN LAB Specimen Blood Performing Organization Address City/[facility]/Zipcode Phone Number MAIN LAB [address] [place] [address] * POC GLUCOSE (03/28/2018 9:23 PM CDT) Glucose, POC 241 (H) 70 - 100 MG/DL K[facility] MAIN LAB Performing Organization Address City/[facility]/Zipcode Phone Number MAIN LAB [address] [place] [address] * POC GLUCOSE (03/28/2018 5:14 PM CDT) Glucose, POC 231 (H) 70 - 100 MG/DL K[facility] MAIN LAB Performing Organization Address City/State/Zipcode Phone Number MAIN LAB [address] [place] [address] * POC GLUCOSE (03/28/2018 1:13 PM CDT) Glucose, POC 196 (H) 70 - 100 MG/DL K[facility] MAIN LAB Performing Organization Address City/[facility]/Zipcode Phone Number MAIN LAB [address] [place] [address] * POC GLUCOSE (03/28/2018 9:24 AM CDT) Glucose, POC 219 (H) 70 - 100 MG/DL MAIN LAB Performing Organization Address City/State/Zipcode Phone Number [facility] LAB [address] [place] [address] * COMPREHENSIVE METABOLIC PANEL (03/28/2018 4:50 AM [...] City/State/Zipcode Phone Number MAIN LAB [address] [place] [address] * CBC AND DIFF (03/28/2018 4:50 AM CDT) White Blood Cells 5.5 4.5 - 11.0 K/UL MAIN LAB RBC [...] LAB Eosinophils 5 0 - 5 % [facility] LAB Basophils 0 0 - 2 % [facility] LAB Absolute Neutrophil Count 3.90 1.8 - 7.0 K/UL MAIN LAB Absolute Lymph Count 0.80 (L) 1.0 - 4.8 K/UL MAIN LAB Absolute Monocyte Count 0.50 0 - 0.80 K/UL [facility] LAB Absolute Eosinophil Count 0.30 0 - 0.45 K/UL [facility] Absolute Basophil Count 0.00 0 - 0.20 K/UL [facility] LAB Specimen Blood Performing Organization Address City/[facility]/Zipcode Phone Number MAIN LAB [address] [place] [address] * POC GLUCOSE (03/27/2018 9:23 PM CDT) Glucose, POC 200 (H) 70 - 100 MG/DL K[facility] MAIN LAB Performing Organization Address City/[facility]/Zipcode Phone Number MAIN LAB [address] [place] [address] * POC GLUCOSE (03/27/2018 6:31 PM CDT) Glucose, POC 201 (H) 70 - 100 MG/DL MAIN LAB Performing Organization Address City/[facility]/Zipcode Phone Number MAIN LAB [address] [place] [address] * ECG-SCAN (03/27/2018 11:05 AM CDT) Narrative Performed At Ordered by an unspecified provider. * POC GLUCOSE (03/27/2018 9:59 AM CDT) Glucose, POC 191 (H) 70 - 100 MG/DL K[facility] MAIN LAB Performing Organization Address [facility] Phone Number [facility] MAIN LAB [address] [place] [address] * POC GLUCOSE (03/27/2018 7:37 AM CDT) Glucose, POC 213 (H) 70 - 100 MG/DL [facility] MAIN LAB Performing Organization Address [facility] Phone Number [facility] MAIN LAB [address] [place] [address] * COMPREHENSIVE METABOLIC PANEL (03/27/2018 5:30 AM [...] for questions. Specimen Blood Performing Organization Address [facility] Phone Number [facility] MAIN LAB [address] [place] [address] * CBC AND DIFF (03/27/2018 5:30 AM [...] LAB Eosinophils 4 0 - 5 % MAIN LAB Basophils [...] MAIN LAB Specimen Blood Performing Organization Address City/[facility] Phone Number MAIN LAB [address] [place] [address] * URINALYSIS, MICROSCOPIC (03/27/2018 2:59 AM CDT) WBCs,UA 0-2 0 - 2 /HPF MAIN LAB RBCs,UA 0-2 0 - 3 /HPF KU MAIN LAB MucousUA TRACE KU MAIN LAB Squamous Epithelial Cells 5-10 0 - 5 KU MAIN LAB Hyaline Cast PACKED KU MAIN LAB Specimen Urine - Urine Performing Organization Address City/[facility]/Zipcode Phone Number [facility] LAB [address] [place] [address] * URINALYSIS DIPSTICK (03/27/2018 2:59 AM CDT) Color,UA YELLOW KU MAIN LAB Turbidity,UA CLEAR CLEAR-CLEAR K[facility] MAIN LAB Specific [place]-Urine 1.015 1.003 - 1.035 KU MAIN LAB [...] Specimen Urine - Urine Performing Organization Address [facility] Phone Number K[facility] MAIN LAB [address] [place] [address] * TRANSFUSE RBC'S NON-BLEEDING PT (03/26/2018 10:53 PM CDT) * TRANSFUSE RBC'S NON-BLEEDING PT (03/26/2018 10:53 PM CDT) * POC GLUCOSE (03/26/2018 9:29 PM CDT) Glucose, POC 233 (H) 70 - 100 MG/DL K[facility] MAIN LAB Performing Organization Address [facility] Phone Number K[facility] MAIN LAB [address] [place] [address] * POC GLUCOSE (03/26/2018 3:10 PM CDT) Glucose, POC 177 (H) 70 - 100 MG/DL K[facility] MAIN LAB Performing Organization Address [facility] Phone Number MAIN LAB [address] [place] [address] * CHEST X-RAY INSPIRATION/EXPIRATION (03/26/2018 1:41 PM [...] The needle was removed, and an 8 Icelandic pigtail all purpose drainage catheter was advanced [...] The needle was removed, and an 8 Icelandic pigtail all purpose drainage catheter was advanced [...] on 03/26/2018 2:14 PM. Performing Organization Address City/[facility] Phone Number RAD RESULTS * POC GLUCOSE (03/26/2018 7:57 AM CDT) Glucose, POC 210 (H) 70 - 100 MG/DL MAIN LAB Performing Organization Address [facility] Phone Number MAIN LAB [address] [place] [address] * CBC AND DIFF (03/26/2018 2:02 AM [...] 0.20 K/UL MAIN LAB Performing Organization Address [facility] Phone Number MAIN LAB [address] [place] [address] * COMPREHENSIVE METABOLIC PANEL (03/26/2018 2:02 AM [...] Address City/State/Zipcode Phone Number MAIN LAB [address] [place] [address] * TROPONIN-I (03/26/2018 2:02 AM CDT) Troponin-I 0.01 0.0 - 0.05 NG/ML [facility] LAB Specimen Blood Performing Organization Address City/[facility]/Zipcode Phone Number MAIN LAB [address] [place] [address] * POC GLUCOSE (03/25/2018 9:25 PM CDT) Glucose, POC 190 (H) 70 - 100 MG/DL MAIN LAB Performing Organization Address City/[facility]/Zipcode Phone Number MAIN LAB [address] [place] [address] * CULTURE-BLOOD W/SENSITIVITY (03/25/2018 8:58 PM CDT) Battery Name BLOOD CULTURE MAIN LAB Specimen Description BLOOD MAIN LAB LEFT UPPER ARM Special Requests NONE MAIN LAB Culture NO GROWTH 5 DAYS MAIN LAB Report Status FINAL MAIN LAB 03/31/2018 Specimen Blood Performing Organization Address City/[facility]/Zipcode Phone Number MAIN LAB [address] [place] [address] * PHOSPHORUS (03/25/2018 8:53 PM CDT) Phosphorus 3.3Comment: NOTE NEW REFERENCE 2.0 - 4.5 MG/DL MAIN LAB RANGES Specimen Blood Performing Organization Address City/[facility] Phone Number [facility]IN LAB [address] [place] [address] * MAGNESIUM (03/25/2018 8:53 PM CDT) Magnesium 1.7 1.6 - 2.6 mg/dL MAIN LAB Specimen Blood Performing Organization Address [facility] Phone Number MAIN LAB [address] [place] [address] * TYPE & CROSSMATCH (03/25/2018 8:53 PM CDT) Units Ordered 1 MAIN LAB Crossmatch Expires 03/28/2018 MAIN LAB Record Check FOUND MAIN LAB ABO/RH(D) A POS MAIN LAB Antibody Screen NEG MAIN LAB Patient has a history of a clinically significant antibody. Unit Number [id number] MAIN LAB Blood Component Type RBC,ADSOL,LEUKO REDUCED MAIN LAB Unit Division 0 MAIN LAB Status OF Unit TRANSFUSED MAIN LAB Transfusion Status OK TO TRANSFUSE MAIN LAB Crossmatch Result COMPATIBLE, GEL KU MAIN LAB Specimen Blood Performing Organization Address [facility] Phone Number MAIN LAB [address] [place] [address] * LACTIC ACID (BG - RAPID LACTATE) (03/25/2018 8:53 PM CDT) Lactic Acid,BG 1.3 0.5 - 2.0 MMOL/L MAIN LAB Specimen Blood Performing Organization Address [facility] Phone Number MAIN LAB [address] [place] [address] * CULTURE-BLOOD W/SENSITIVITY (03/25/2018 8:53 PM CDT) Battery Name BLOOD CULTURE KU MAIN LAB Specimen Description BLOOD MAIN LAB LEFT ANTECUBITAL Special Requests NONE KU MAIN LAB Culture NO GROWTH 5 DAYS KU MAIN LAB Report Status FINAL KU MAIN LAB 03/31/2018 Specimen Blood Performing Organization Address [facility] Phone Number [facility] MAIN LAB [address] [place] [address] * TROPONIN-I (03/25/2018 8:53 PM CDT) Troponin-I 0.01 0.0 - 0.05 NG/ML KU MAIN LAB Specimen Blood Performing Organization Address [facility]/Zipcode Phone Number JONATHAN MAIN LAB [address] [place] [address] * CT HEAD WO CONTRAST (03/25/2018 6:23 [...] on 03/25/2018 8:54 PM. Performing Organization Address [facility] Phone Number RAD RESULTS * BNP POC ER (03/25/2018 4:16 PM CDT) BNP POC 327.0 (H) 0 - 100 PG/ML MAIN LAB Performing Organization Address [facility] Phone Number MAIN LAB [address] [place] [address] * POC TROPONIN (03/25/2018 4:09 PM CDT) Lisnxuur-K-LXB 0.00 0.00 - 0.05 NG/ML [facility] MAIN LAB Performing Organization [facility] Phone Number MAIN LAB [address] [place] [address] * PHOSPHORUS (03/25/2018 4:07 PM CDT) Phosphorus 3.5Comment: NOTE NEW REFERENCE 2.0 - 4.5 MG/DL MAIN LAB RANGES Specimen Blood Performing Organization [facility] Phone Number MAIN LAB [address] [place] [address] * MAGNESIUM (03/25/2018 4:07 PM CDT) Magnesium 1.8 1.6 - 2.6 mg/dL MAIN LAB Specimen Blood Performing Organization [facility] Phone Number MAIN LAB [address] [place] [address] * COMPREHENSIVE METABOLIC PANEL (03/25/2018 4:07 PM [...] Organization Address City/State/Zipcode Phone Number MAIN LAB [address] [place] [address] * CBC AND DIFF (03/25/2018 4:07 PM [...] MAIN LAB Specimen Blood Performing Organization Address City[facility] Phone Number [facility] MAIN LAB [address] [place] [address] * CHEST SINGLE VIEW (03/25/2018 3:50 PM [...] on 03/25/2018 4:28 PM. Performing Organization Address [facility] Phone Number [facility] RAD RESULTS * ECG-SCAN [...] , administer 10 units insulin, at , 03* administer 8 units. -POC glucose 351-400mg/dL at [...] mg, Oral, EVERY 8 HOURS PRN, Starting Ashley 03/25/18 at 1845, Until Thu04/09/18 at 0003, Nausea/Vomiting [...] tablet, Oral, TWICE DAILY, First dose on Ashley 03/25/18 at 2100, Until Discontinued, Hold for loose [...]
--- OUTSIDE RECORDS SUMMARY | 2018-06-18 13:44 | XMS REPORT | Encounter Summary ---
Author Author [facility] Organization [facility] Address Unknown Phone Unavailable Care Team Providers Care Fisher Oyster Name Role Phone Carla Wilson MD PCP Naima Field MD Unavailable Winnie Jorge MD Unavailable Encounter Details Care Team Description Date Type Department Grace Alberts, CARDIAC TECHNOLOGIST [address] [place] [address] 03/29/2018 Anesthesia Gastrointenstinal Event Endoscopy [address] [place], [place] [id number] Anesthesia Record Responsible Anesthesiologist Anesthesia Start Time [...]
--- OUTSIDE RECORDS SUMMARY | 2018-06-18 13:44 | XMS REPORT | Encounter Summary ---
Author Author [facility] Organization [facility] Address Unknown Phone Unavailable Care Team Providers Care Forge Utility Worker Name Role Phone Carla Wilson MD PCP Naima Field MD Unavailable Winnie Jorge MD Unavailable Encounter Details Care Team Description Date Type Department Sole Diaz SRNA 04/07/2018 Anesthesia Gastrointenstinal Event Endoscopy [address] [place] [address] Anesthesia Record Responsible Anesthesiologist Anesthesia [...]
--- OUTSIDE RECORDS SUMMARY | 2018-06-18 13:47 | XMS REPORT | Encounter Summary ---
Author Author [facility] Organization [facility] Address Unknown Phone Unavailable Care Team Providers Care Ramp Jockey Name Role Phone Carla Wilson MD PCP Naima Field MD Unavailable Winnie Jorge MD Unavailable Reason for Visit * Reason Comments Shortness of Breath CABG x4 1 month ago, sob, in and out of afib and flutter Encounter Details Care Team Description Date Type Department Dannielle Covington MD [address] [facility] [address] [place], [place] [id number] ESOPHAGOGASTRODUODENOSCOPY 03/29/2018 Surgery Gastrointenstinal Endoscopy [address] [place], [place] [id number] Social History Date Tobacco Use Types Packs/Day [...] Date/Time Associated Diagnosis ECG-SCAN 04/24/2018 5:40 PM 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 TELEMETRY STRIPS-SCAN 04/16/2018 12:49 PM CDT ECG-SCAN [...] encounter Results * ECG-SCAN (04/24/2018 5:40 PM 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 SECRETARY) Narrative Performed At Ordered by an unspecified [...] Address City/State/Zipcode Phone Number MAIN LAB [address] [place] [address] * TRANSESOPHAGEAL ECHOCARDIOGRAM (04/08/2018 4:06 PM CDT) BSA 2.19 m2 OTHER OUTSIDE LAB CV ECHO PV BRAKE SHOE REBUILDER Marisa MACKAY, Anesthesia Team OTHER OUTSIDE LAB Interp Only Service Center Manager Charu Golden OTHER OUTSIDE LAB Cardiology Ultrasound Siemens [id number] OTHER OUTSIDE LAB Machine TV rest pulmonary [...] Compared with the prior TTE study on 10-17-18, there has been no significant interval changes in structure or function.Visualization was better on current study.LV function was relatively hyperdynamic on the contrasted images from the prior study. Performing Organization Address City/[facility]/[employer] Phone Number OTHER OUTSIDE LAB * POC GLUCOSE (04/08/2018 12:41 PM CDT) Glucose, POC 136 (H) 70 - 100 MG/DL [facility] MAIN LAB Performing Organization Address [facility] Phone Number [facility] MAIN LAB [address] [place] [address] * POC GLUCOSE (04/08/2018 11:56 AM CDT) Glucose, POC 147 (H) 70 - 100 MG/DL [facility] MAIN [facility] Performing Organization Address [facility] Phone Number MAIN LAB [address] [place] [address] * POC GLUCOSE (04/08/2018 8:37 AM CDT) Glucose, POC 216 (H) 70 - 100 MG/DL [facility] MAIN [facility] Performing Organization Address [facility] Phone Number [facility] MAIN [facility] [address] [place] [address] * MAGNESIUM (04/08/2018 5:00 AM CDT) Magnesium 2.3 1.6 - 2.6 mg/dL [employer] MAIN LAB Specimen Blood Performing Organization [facility] Phone Number MAIN LAB [address] [place] [address] * PTT (APTT) (04/08/2018 5:00 AM CDT) APTT 30.2Comment: NOTE NEW 20.0 - 36.0 SEC [facility] MAIN [facility] REFERENCE RANGES Specimen Blood Performing Organization [facility] Phone Number MAIN LAB [address] [place] [address] * BASIC METABOLIC PANEL (04/08/2018 5:00 AM CDT) Sodium 136 (L) 137 - 147 MMOL/L [facility] MAIN [facility] Potassium 4.2 3.5 - 5.1 MMOL/L [facility] MAIN [facility] Chloride 93 (L) 98 - 110 MMOL/L [facility] MAIN [facility] CO2 36 (H) 21 - 30 MMOL/L [facility] MAIN [facility] Anion Gap 7 3 - 12 [facility] MAIN [facility] Glucose 135 (H) 70 - 100 MG/DL MAIN LAB Blood Urea Nitrogen 32 (H) 7 - 25 MG/DL [facility] MAIN [facility] Creatinine 1.44 (H) 0.4 - 1.00 MG/DL MAIN LAB Calcium 9.4 8.5 - 10.6 MG/DL MAIN LAB eGFR Non 37 (L) >60 [...] for questions. Specimen Blood Performing Organization Address City/[facility]/Zipcode Phone Number [facility] [address] [place] [address] * CBC (04/08/2018 5:00 AM CDT) White Blood Cells 4.4 (L) 4.5 - 11.0 K/UL [facility] RBC 2.59 (L) 4.0 - 5.0 M/UL [facility] Hemoglobin 8.1 (L) 12.0 - 15.0 GM/DL [facility] Hematocrit 25.0 (L) 36 - 45 % [facility] MCV 96.6 80 - 100 FL [facility] MCH 31.4 26 - 34 PG [facility] MCHC 32.5 32.0 - 36.0 G/DL [facility] RDW 17.8 (H) 11 - 15 % [facility] Platelet Count 129 (L) 150 - 400 K/UL [facility] MPV 8.8 7 - 11 FL [facility] Specimen Blood Performing Organization Address City/[facility]/Zipcode Phone Number MAIN LAB [address] [place] [address] * PROTIME INR (PT) (04/08/2018 5:00 AM CDT) INR 1.6 (H) 0.8 - 1.2 [facility] Specimen Blood Performing Organization Address City/[facility]/Zipcode Phone Number [facility] [address] [place] [address] * POC GLUCOSE (04/07/2018 9:00 PM CDT) Glucose, POC 157 (H) 70 - 100 MG/DL [facility] MAIN [facility] Performing Organization Address City/[facility]/Zipcode Phone Number JONATHAN MAIN LAB [address] [place] [address] * POC GLUCOSE (04/07/2018 5:59 PM CDT) Glucose, POC 261 (H) 70 - 100 MG/DL MAIN LAB Performing Organization Address [facility]/[employer] Phone Number MAIN LAB [address] [place] [address] * POC GLUCOSE (04/07/2018 2:29 PM CDT) Glucose, POC 141 (H) 70 - 100 MG/DL MAIN LAB Performing Organization Address [facility]/[employer] Phone Number MAIN LAB [address] [place] [address] * COLONOSCOPY (04/07/2018 12:07 PM CDT) Provation Report Patient Name: Donnie CASTILLO OTHER RESULTS Procedure Date: 04/07/2018 12:07 PM CSN: [id number] Date of : 1955 Gender: Female Attending Physician: Skinny Marshall MD Procedure: Colonoscop y Indications: Hematochezia Providers: Skinny Marshall MD (Doctor), Conner Martines MD (Fellow), Mariana Suarez RN (Nurse), Elvia River Concrete Floor Installer (Concrete Floor Installer) Referring Physician: Felisa Sneed Medications: Monitored Anesthesia [...] electronically signed and finalized this document. Conner Matrines MD Number of Addenda: 0 Note Initiated On: 04/07/2018 12:07 PM Performing Organization Address City/State/Zipcode Phone Number [facility] OTHER RESULTS * POC GLUCOSE (04/07/2018 7:56 AM CDT) Glucose, POC 133 (H) 70 - 100 MG/DL [facility] MAIN LAB Performing Organization Address City/[facility]/[employer] Phone Number [employer] MAIN LAB [address] [place] [address] * CHEST SINGLE VIEW (04/07/2018 6:43 AM [...] on 04/07/2018 8:29 AM. Performing Organization Address City/State/[employer] Phone Number [employer] RAD RESULTS * MAGNESIUM (04/07/2018 4:25 AM CDT) Magnesium 2.3 1.6 - 2.6 mg/dL [facility] MAIN LAB Specimen Blood Performing Organization Address City/[facility]/[employer] Phone Number [employer] MAIN LAB [address] [place] [address] * PTT (APTT) (04/07/2018 4:25 AM CDT) APTT 29.1Comment: NOTE NEW 20.0 - 36.0 SEC [facility] MAIN [facility] REFERENCE RANGES Specimen Blood Performing Organization Address City/[facility]/Zipcode Phone Number MAIN LAB [address] [place] [address] * BASIC METABOLIC PANEL (04/07/2018 4:25 AM [...] for questions. Specimen Blood Performing Organization Address City/[facility]/Zipcode Phone Number MAIN LAB [address] [place] [address] * CBC (04/07/2018 4:25 AM CDT) White [...] MAIN LAB Specimen Blood Performing Organization Address City/[facility]/[employer] Phone Number MAIN LAB [address] [place] [address] * PROTIME INR (PT) (04/07/2018 4:25 AM CDT) INR 1.6 (H) 0.8 - 1.2 MAIN LAB Specimen Blood Performing Organization Address City/[facility]/[employer] Phone Number MAIN LAB [address] [place] [address] * POC GLUCOSE (04/06/2018 9:06 PM CDT) Glucose, POC 165 (H) 70 - 100 MG/DL [facility] MAIN [facility] Performing Organization Address City/[facility]/[employer] Phone Number MAIN LAB [address] [place] [address] * POC GLUCOSE (04/06/2018 6:04 PM CDT) Glucose, POC 273 (H) 70 - 100 MG/DL MAIN LAB Performing Organization Address City/[facility]/[employer] Phone Number MAIN LAB [address] [place] [address] * POC GLUCOSE (04/06/2018 11:56 AM CDT) Glucose, POC 138 (H) 70 - 100 MG/DL [facility] MAIN [facility] Performing Organization Address [facility]/[employer] Phone Number MAIN LAB [address] [place] [address] * POC GLUCOSE (04/06/2018 8:49 AM CDT) Glucose, POC 150 (H) 70 - 100 MG/DL MAIN LAB Performing Organization Address [facility]/[employer] Phone Number MAIN LAB [address] [place] [address] * CHEST SINGLE VIEW (04/06/2018 6:30 AM [...] mg/dL [facility] MAIN LAB Performing Organization Address City/[facility]/[employer] Phone Number [facility] MAIN [facility] [address] [place] [address] * IRON + BINDING CAPACITY + %SAT+ FERRITIN (04/06/2018 3:00 AM CDT) Iron 23 (L)Comment: SLT HEMOLYSIS 50 - 160 MCG/DL [facility] MAIN LAB Iron Binding-TIBC 273 270 - 380 MCG/DL [facility] MAIN LAB % Saturation 8 (L) 28 - 42 % [facility] MAIN LAB Ferritin 259 (H) 10 - 200 NG/ML [facility] MAIN LAB Performing Organization Address [facility]/[employer] Phone Number [facility] MAIN LAB [address] [place] [address] * FOLATE, SERUM (04/06/2018 3:00 AM CDT) Serum Folate >23.4 >3.9 NG/ML [facility] MAIN LAB Comment: SLT HEMOLYSIS NOTE NEW REFERENCE RANGES Performing Organization Address [facility] Phone Number [facility] MAIN [facility] [address] [place] [address] * VITAMIN B12 (04/06/2018 3:00 AM CDT) Vitamin B12 1,234 (H) 180 - 914 PG/ML [facility] MAIN LAB Performing Organization Address [facility] Phone Number [facility] MAIN [facility] [address] [place] [address] * PTT (APTT) (04/06/2018 3:00 AM CDT) APTT 20.4Comment: NOTE NEW 20.0 - 36.0 SEC [facility] MAIN [facility] REFERENCE RANGES Specimen Blood Performing Organization Address [facility]/[employer] Phone Number [facility] MAIN [facility] [address] [place] [address] * BASIC METABOLIC PANEL (04/06/2018 3:00 AM [...] for questions. Specimen Blood Performing Organization Address City/[facility]/Zipcode Phone Number [facility] [address] [place] [address] * CBC (04/06/2018 3:00 AM CDT) White Blood Cells 4.5 4.5 - 11.0 K/UL MAIN LAB RBC 2.58 (L) 4.0 - 5.0 M/UL MAIN LAB Hemoglobin 8.2 (L) 12.0 - 15.0 GM/DL MAIN LAB Hematocrit 24.8 (L) 36 - 45 % MAIN LAB MCV 96.2 80 - 100 FL MAIN LAB MCH 32.0 26 - 34 PG [facility] MCHC 33.2 32.0 - 36.0 G/DL [facility] RDW 17.2 (H) 11 - 15 % MAIN LAB Platelet Count 132 (L) 150 - 400 K/UL MAIN LAB MPV 8.9 7 - 11 FL MAIN LAB Specimen Blood Performing Organization Address City/[facility]/[employer] Phone Number MAIN LAB [address] [place] [address] * PROTIME INR (PT) (04/06/2018 3:00 AM CDT) INR 1.6 (H) 0.8 - 1.2 MAIN LAB Specimen Blood Performing Organization Address City/[facility]/Zipcode Phone Number [facility] [address] [place] [address] * CBC (04/05/2018 9:48 PM CDT) White [...] MAIN LAB Specimen Blood Performing Organization Address City/[facility]/[employer] Phone Number MAIN LAB [address] [place] [address] * POC GLUCOSE (04/05/2018 9:00 PM CDT) Glucose, POC 185 (H) 70 - 100 MG/DL MAIN LAB Performing Organization Address [facility]/[employer] Phone Number MAIN LAB [address] [place] [phone] * POC GLUCOSE (04/05/2018 4:17 PM CDT) Glucose, POC 186 (H) 70 - 100 MG/DL MAIN LAB Performing Organization Address [facility] Phone Number MAIN LAB [address] [place] [address] * PTT (APTT) (04/05/2018 2:10 PM CDT) APTT 96.5 (H)Comment: NOTE NEW 20.0 - 36.0 SEC MAIN LAB REFERENCE RANGES Specimen Blood Performing Organization Address [facility]/[employer] Phone Number MAIN LAB [address] [place] [address] * CBC (04/05/2018 2:10 PM CDT) White Blood Cells 4.7 4.5 - 11.0 K/UL MAIN LAB RBC 2.59 (L) 4.0 - 5.0 M/UL MAIN LAB Hemoglobin 8.2 (L) 12.0 - 15.0 GM/DL MAIN LAB Hematocrit 25.2 (L) 36 - 45 % MAIN LAB MCV 97.1 80 - 100 FL MAIN LAB MCH 31.8 26 - 34 PG [facility] MAIN LAB MCHC 32.7 32.0 - 36.0 G/DL [facility] RDW 18.1 (H) 11 - 15 % MAIN LAB Platelet Count 139 (L) 150 - 400 K/UL MAIN LAB MPV 8.2 7 - 11 FL [facility] MAIN [facility] Specimen Blood Performing Organization Address [facility]/[employer] Phone Number [facility] MAIN [facility] [address] [place] [address] * POC GLUCOSE (04/05/2018 1:48 PM CDT) Glucose, POC 160 (H) 70 - 100 MG/DL [facility] MAIN [facility] Performing Organization Address [facility]/[employer] Phone Number MAIN LAB [address] [place] [address] * POC GLUCOSE (04/05/2018 9:03 AM CDT) Glucose, POC 199 (H) 70 - 100 MG/DL [facility] MAIN [facility] Performing Organization Address [facility] Phone Number MAIN LAB [address] [place] [address] * CHEST SINGLE VIEW (04/05/2018 6:11 AM [...] on 04/05/2018 8:36 AM. Performing Organization Address [facility]/[employer] Phone Number [facility] RESULTS * MAGNESIUM (04/05/2018 4:24 AM CDT) Magnesium 1.9 1.6 - 2.6 mg/dL MAIN LAB Performing Organization Address [facility] Phone Number [facility] [address] [place] [address] * PTT (APTT) (04/05/2018 4:24 AM CDT) APTT 111.3 (H)Comment: NOTE NEW 20.0 - 36.0 SEC [facility] REFERENCE RANGES Specimen Blood Performing Organization Address [facility]/[employer] Phone Number [facility] [address] [place] [address] * BASIC METABOLIC PANEL (04/05/2018 4:24 AM CDT) Sodium 137 137 - 147 MMOL/L MAIN LAB Potassium 3.4 (L) 3.5 - 5.1 MMOL/L MAIN LAB Chloride 95 (L) 98 - 110 MMOL/L MAIN LAB CO2 35 (H) 21 - 30 MMOL/L MAIN LAB Anion Gap 7 3 - 12 MAIN LAB Glucose 172 (H) 70 - 100 MG/DL [facility] MAIN [facility] Blood Urea Nitrogen 44 (H) 7 - 25 MG/DL [facility] MAIN [facility] Creatinine 1.28 (H) 0.4 - 1.00 MG/DL [facility] MAIN [facility] Calcium 9.3 8.5 - 10.6 MG/DL MAIN LAB eGFR Non 43 (L) >60 [...] for questions. Specimen Blood Performing Organization Address City/[facility]/Zipcode Phone Number [facility] [address] [place] [phone] * CBC (04/05/2018 4:24 AM CDT) White Blood Cells 4.3 (L) 4.5 - 11.0 K/UL [facility] RBC 2.54 (L) 4.0 - 5.0 M/UL [facility] Hemoglobin 8.0 (L) 12.0 - 15.0 GM/DL [facility] Hematocrit 24.9 (L) 36 - 45 % [facility] MCV 98.3 80 - 100 FL [facility] MCH 31.7 26 - 34 PG [facility] MCHC 32.3 32.0 - 36.0 G/DL [facility] RDW 18.7 (H) 11 - 15 % [facility] Platelet Count 128 (L) 150 - 400 K/UL [facility] MPV 8.2 7 - 11 FL [facility] Specimen Blood Performing Organization Address City/[facility]/Zipcode Phone Number [facility] [address] [place] [address] * PROTIME INR (PT) (04/05/2018 4:24 AM CDT) INR 1.5 (H) 0.8 - 1.2 [facility] Specimen Blood Performing Organization Address City/[facility]/Zipcode Phone Number [facility] [address] [place] [address] * POC GLUCOSE (04/04/2018 8:15 PM CDT) Glucose, POC 242 (H) 70 - 100 MG/DL [facility] MAIN [facility] Performing Organization Address City/[facility]/[employer] Phone Number [facility] MAIN [facility] [address] [place] [address] * POC GLUCOSE (04/04/2018 1:22 PM CDT) Glucose, POC 150 (H) 70 - 100 MG/DL [facility] MAIN LAB Performing Organization Address [facility]/[employer] Phone Number [facility] MAIN [facility] [address] [place] [address] * POC GLUCOSE (04/04/2018 6:53 AM CDT) Glucose, POC 138 (H) 70 - 100 MG/DL [facility] MAIN [facility] Performing Organization Address [facility]/[employer] Phone Number MAIN LAB [address] [place] [address] * CHEST SINGLE VIEW (04/04/2018 5:11 AM [...] expressed in this report Finalized by Joao Davenprot M.D. on 04/04/2018 10:10 AM. Dictated by Francis Last M.D. on 04/04/2018 9:11 AM. Performing Organization Address [facility]/[employer] Phone Number RAD RESULTS * MAGNESIUM (04/04/2018 4:34 AM CDT) Magnesium 1.7 1.6 - 2.6 mg/dL MAIN LAB Specimen Blood Performing Organization Address [facility] Phone Number MAIN LAB [address] [place] [address] * BASIC METABOLIC PANEL (04/04/2018 4:34 AM [...] for questions. Specimen Blood Performing Organization Address [facility]/[employer] Phone Number MAIN LAB [address] [place] [address] * CBC (04/04/2018 4:34 AM CDT) White Blood Cells 4.6 4.5 - 11.0 K/UL MAIN LAB RBC [...] MAIN LAB Specimen Blood Performing Organization Address City/[facility]/[employer] Phone Number MAIN LAB [address] [place] [address] * PTT (APTT) (04/04/2018 4:34 AM CDT) APTT 105.4 (H)Comment: NOTE NEW 20.0 - 36.0 SEC MAIN LAB REFERENCE RANGES Specimen Blood Performing Organization Address City/[facility]/[employer] Phone Number MAIN LAB [address] [place] [address] * PROTIME INR (PT) (04/04/2018 4:34 AM CDT) INR 1.4 (H) 0.8 - 1.2 MAIN LAB Specimen Blood Performing Organization Address [facility]/[employer] Phone Number MAIN LAB [address] [place] [address] * POC GLUCOSE (04/03/2018 8:55 PM CDT) Glucose, POC 133 (H) 70 - 100 MG/DL MAIN LAB Performing Organization Address [facility]/[employer] Phone Number MAIN LAB [address] [place] [address] * HEMOGLOBIN & HEMATOCRIT (04/03/2018 8:11 PM CDT) Hemoglobin 8.1 (L) 12.0 - 15.0 GM/DL MAIN LAB Hematocrit 24.1 (L) 36 - 45 % MAIN LAB Specimen Blood Performing Organization Address [facility]/[employer] Phone Number MAIN LAB [address] [place] [address] * POC GLUCOSE (04/03/2018 7:53 PM CDT) Glucose, POC 127 (H) 70 - 100 MG/DL [facility] MAIN [facility] Performing Organization Address [facility]/[employer] Phone Number [facility] MAIN [facility] [address] [place] [address] * POC GLUCOSE (04/03/2018 4:54 PM CDT) Glucose, POC 180 (H) 70 - 100 MG/DL [facility] MAIN [facility] Performing Organization Address [facility] Phone Number [facility] MAIN [facility] [address] [place] [address] * POC GLUCOSE (04/03/2018 11:46 AM CDT) Glucose, POC 185 (H) 70 - 100 MG/DL [facility] MAIN [facility] Performing Organization Address [facility] Phone Number [facility] MAIN [facility] [address] [place] [address] * POC GLUCOSE (04/03/2018 6:24 AM CDT) Glucose, POC 212 (H) 70 - 100 MG/DL [facility] MAIN [facility] Performing Organization Address [facility] Phone Number [facility] MAIN [facility] [address] [place] [address] * CHEST SINGLE VIEW (04/03/2018 6:05 AM [...] on 04/03/2018 9:55 AM. Performing Organization Address [facility]/[employer] Phone Number RAD RESULTS * PTT (APTT) (04/03/2018 4:24 AM CDT) APTT 96.4 (H)Comment: NOTE NEW 20.0 - 36.0 SEC [facility] MAIN LAB REFERENCE RANGES Specimen Blood Performing Organization Address [facility] Phone Number [employer] MAIN LAB [address] [place] [address] * MAGNESIUM (04/03/2018 4:24 AM CDT) Magnesium 1.8 1.6 - 2.6 mg/dL [employer] MAIN LAB Specimen Blood Performing Organization Address [facility] Phone Number [employer] MAIN LAB [address] [place] [address] * BASIC METABOLIC PANEL (04/03/2018 4:24 AM [...] for questions. Specimen Blood Performing Organization Address City/[facility]/Zipcode Phone Number [facility] MAIN [facility] [address] [place] [address] * CBC (04/03/2018 4:24 AM CDT) White [...] MAIN LAB Specimen Blood Performing Organization Address [facility]/[employer] Phone Number [facility] MAIN [facility] [address] [place] [phone] * PTT (APTT) (04/02/2018 9:04 PM CDT) APTT 85.7 (H)Comment: NOTE NEW 20.0 - 36.0 SEC [facility] MAIN [facility] REFERENCE RANGES Specimen Blood Performing Organization Address City/[facility]/[employer] Phone Number [facility] MAIN [facility] [address] [place] [address] * POC GLUCOSE (04/02/2018 8:52 PM CDT) Glucose, POC 192 (H) 70 - 100 MG/DL [facility] MAIN [facility] Performing Organization Address [facility]/[employer] Phone Number [facility] MAIN [facility] [address] [place] [address] * POC GLUCOSE (04/02/2018 5:15 PM CDT) Glucose, POC 170 (H) 70 - 100 MG/DL [facility] MAIN [facility] Performing Organization Address City/[facility]/[employer] Phone Number [facility] MAIN [facility] [address] [place] [address] * PTT (APTT) (04/02/2018 2:00 PM CDT) APTT 88.1 (H)Comment: NOTE NEW 20.0 - 36.0 SEC [facility] MAIN [facility] REFERENCE RANGES Specimen Blood Performing Organization Address [facility]/[employer] Phone Number [facility] MAIN [facility] [address] [place] [address] * POC GLUCOSE (04/02/2018 11:38 AM CDT) Glucose, POC 189 (H) 70 - 100 MG/DL [facility] MAIN [facility] Performing Organization Address [facility]/[employer] Phone Number [facility] MAIN [facility] [address] [place] [address] * POC GLUCOSE (04/02/2018 6:57 AM CDT) Glucose, POC 174 (H) 70 - 100 MG/DL [facility] MAIN [facility] Performing Organization Address [facility] Phone Number MAIN LAB [address] [place] [address] * PTT (APTT) (04/02/2018 5:20 AM CDT) APTT 126.3 (H)Comment: NOTE NEW 20.0 - 36.0 SEC [facility] MAIN [facility] REFERENCE RANGES Specimen Blood Performing Organization Address [facility] Phone Number MAIN LAB [address] [place] [address] * MAGNESIUM (04/02/2018 5:20 AM CDT) Magnesium 1.7 1.6 - 2.6 mg/dL [facility] MAIN LAB Specimen Blood Performing Organization Address [facility] Phone Number [facility] MAIN [facility] [address] [place] [address] * BASIC METABOLIC PANEL (04/02/2018 5:20 AM [...] for questions. Specimen Blood Performing Organization Address City/[facility]/Zipcode Phone Number [facility] [address] [place] [address] * CBC (04/02/2018 5:20 AM CDT) White [...] MAIN LAB Specimen Blood Performing Organization Address City/[facility]/Zipcode Phone Number [facility] [address] [place] [address] * CHEST SINGLE VIEW (04/02/2018 4:54 AM [...] MAIN LAB Specimen Blood Performing Organization Address City/[facility]/[employer] Phone Number [facility] MAIN [facility] [address] [place] [address] * PTT (APTT) (04/01/2018 11:24 PM CDT) APTT 26.4Comment: NOTE NEW 20.0 - 36.0 SEC [facility] MAIN LAB REFERENCE RANGES Specimen Blood Performing Organization Address [facility]/[employer] Phone Number [facility] MAIN [facility] [address] [place] [address] * POC GLUCOSE (04/01/2018 9:12 PM CDT) Glucose, POC 193 (H) 70 - 100 MG/DL [facility] MAIN LAB Performing Organization Address [facility] Phone Number [facility] MAIN [facility] [address] [place] [address] * CT HEAD WO CONTRAST (04/01/2018 7:51 [...] for questions. Specimen Blood Performing Organization Address City/[facility]/Zipcode Phone Number MAIN LAB [address] [place] [address] * POC GLUCOSE (04/01/2018 5:57 PM CDT) Glucose, POC 143 (H) 70 - 100 MG/DL MAIN LAB Performing Organization Address [facility]/[employer] Phone Number MAIN LAB [address] [place] [address] * POC GLUCOSE (04/01/2018 12:13 PM CDT) Glucose, POC 140 (H) 70 - 100 MG/DL MAIN LAB Performing Organization Address [facility] Phone Number MAIN LAB [address] [place] [address] * BLOOD GASES, PERIPHERAL VENOUS (04/01/2018 11:55 AM CDT) pH-Venous 7.24 (L) 7.30 - 7.40 MAIN LAB PCO2-Venous 65 (H) 36 - 50 MMHG MAIN LAB PO2-Venous 44 33 - 48 MM[facility] MAIN LAB Base Deficit-Venous 0.9 MMOL/L MAIN LAB O2 Sat-Venous 74.1 (H) 55 - 71 % MAIN LAB [id number] 23.4 MMOL/L MAIN LAB Specimen Blood, venous - Blood Performing Organization Address [facility]/[employer] Phone Number MAIN LAB [address] [place] [address] * EOSINOPHIL STAIN (04/01/2018 11:40 AM CDT) Battery Name EOSINOPHIL STAIN MAIN LAB Specimen Description URINE MAIN LAB Special Requests NONE MAIN LAB Ahuja's Stain NO EOSINOPHILS SEEN MAIN LAB Report Status FINAL MAIN LAB 04/02/2018 Specimen Urine Performing Organization Address [facility]/Zipcode Phone Number MAIN LAB [address] [place] [address] * CREATININE-URINE RANDOM (04/01/2018 11:40 AM CDT) Creatinine, Random 209 MG/DL [facility] MAIN LAB Specimen Urine - Urine Performing Organization Address [facility] Phone Number [facility] MAIN LAB [address] [place] [address] * UREA NITROGEN-URINE RANDOM (04/01/2018 11:40 AM CDT) Urea Nitrogen 294 MG/DL [facility] MAIN LAB Specimen Urine - Urine Performing Organization Address [facility] Phone Number [facility] MAIN LAB [address] [place] [address] * SODIUM-URINE RANDOM (04/01/2018 11:40 AM CDT) Sodium, Random 11 MMOL/L [facility] MAIN LAB Specimen Urine - Urine Performing Organization [facility] Phone Number [facility] MAIN LAB [address] [place] [address] * UA REFLEX CULTURE LABEL (04/01/2018 11:40 AM CDT) UA Reflex Culture LAB LABEL [facility] MAIN LAB Specimen Urine Performing Organization Address [facility] Phone Number [facility] MAIN LAB [address] [place] [address] * URINALYSIS MICROSCOPIC REFLEX TO CULTURE (04/01/2018 [...] MAIN LAB Specimen Urine Performing Organization Address [facility] Phone Number [facility] MAIN LAB [address] [place] [address] * URINALYSIS DIPSTICK REFLEX TO CULTURE (04/01/2018 11:40 AM CDT) Color,UA YELLOW [facility] MAIN LAB Turbidity,UA 1+ (A) CLEAR-CLEAR [facility] MAIN LAB Specific Paia-Urine 1.014 1.003 - 1.035 [facility] MAIN LAB [...] MAIN LAB Specimen Urine Performing Organization Address [facility] Phone Number MAIN LAB [address] [place] [address] * POC GLUCOSE (04/01/2018 8:25 AM CDT) Glucose, POC 169 (H) 70 - 100 MG/DL MAIN LAB Performing Organization Address [facility] Phone Number MAIN LAB [address] [place] [address] * URIC ACID (04/01/2018 7:50 AM CDT) Uric Acid 13.7 (H) 2.0 - 7.0 MG/DL MAIN LAB Specimen Blood Performing Organization Address [facility] Phone Number MAIN LAB [address] [place] [address] * CREATINE KINASE-CPK (04/01/2018 7:50 AM CDT) Creatine Kinase 16 (L) 21 - 215 U/L MAIN LAB Specimen Blood Performing Organization Address [facility] Phone Number MAIN LAB [address] [place] [address] * MAGNESIUM (04/01/2018 7:50 AM CDT) Magnesium 1.7 1.6 - 2.6 mg/dL MAIN LAB Specimen Blood Performing Organization Address [facility] Phone Number MAIN LAB [address] [place] [address] * CBC AND DIFF (04/01/2018 7:50 AM [...] Address City/State/Zipcode Phone Number MAIN LAB [address] [place] [address] * BASIC METABOLIC PANEL (04/01/2018 7:50 AM [...] Phone Number MAIN LAB [address] [place] [address] * CHEST SINGLE VIEW (04/01/2018 6:20 AM [...] on 04/01/2018 11:38 AM. Performing Organization Address City/[facility]/Zipcode Phone Number RAD RESULTS * BLOOD GASES, ARTERIAL (03/31/2018 11:57 PM CDT) pH-Arterial 7.27 (L) 7.35 - 7.45 MAIN LAB pCO2-Arterial 59 (H) 35 - 45 MMHG MAIN LAB pO2-Arterial 76 (L) 80 - 100 [facility] MAIN LAB Base Deficit-Arterial 0.8 MMOL/L MAIN LAB O2 Sat-Arterial 95.0 95 - 99 % MAIN LAB Vyysspoisqi-LHK-Uaa 23.7 21 - 28 MMOL/L MAIN LAB Specimen Blood, arterial - Blood Performing Organization Address [facility] Phone Number MAIN LAB [address] [place] [address] * CULTURE-BLOOD W/SENSITIVITY (03/31/2018 9:58 PM CDT) Battery Name BLOOD CULTURE MAIN LAB Specimen Description BLOOD MAIN LAB LEFT ANTECUBITAL Special Requests NONE MAIN LAB Culture NO GROWTH 5 DAYS MAIN LAB Report Status FINAL MAIN LAB 04/06/2018 Specimen Blood Performing Organization Address [facility]/[employer] Phone Number MAIN LAB [address] [place] [address] * LACTIC ACID (BG - RAPID LACTATE) (03/31/2018 9:50 PM CDT) Lactic Acid,BG 1.3 0.5 - 2.0 MMOL/L MAIN LAB Specimen Blood Performing Organization Address [facility]/[employer] Phone Number MAIN LAB [address] [place] [address] * CULTURE-BLOOD W/SENSITIVITY (03/31/2018 9:50 PM CDT) Battery Name BLOOD CULTURE MAIN LAB Specimen Description BLOOD MAIN LAB RIGHT ANTECUBITAL Special Requests NONE MAIN LAB Culture NO GROWTH 5 DAYS MAIN LAB Report Status FINAL MAIN LAB 04/06/2018 Specimen Blood Performing Organization Address [facility]/[employer] Phone Number MAIN LAB [address] [place] [address] * POC GLUCOSE (03/31/2018 9:12 PM CDT) Glucose, POC 160 (H) 70 - 100 MG/DL MAIN LAB Performing Organization Address City/[facility]/[employer] Phone Number MAIN LAB [address] [place] [address] * POC GLUCOSE (03/31/2018 5:48 PM CDT) Glucose, POC 173 (H) 70 - 100 MG/DL [facility] MAIN LAB Performing Organization Address City/[facility]/Zipcode Phone Number MAIN LAB [address] [place] [address] * COMPREHENSIVE METABOLIC PANEL (03/31/2018 3:35 PM [...] for questions. 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 Performing Organization Address City/[facility]/[employer] Phone Number OTHER OUTSIDE LAB * CHEST [...] on 03/31/2018 11:20 AM. Performing Organization Address City/[facility]/[employer] Phone Number [facility] RAD RESULTS * CHEST [...] on 03/31/2018 11:35 AM. Performing Organization Address City/[facility]/[employer] Phone Number [facility] RAD RESULTS * POC GLUCOSE (03/31/2018 7:34 AM CDT) Glucose, POC 141 (H) 70 - 100 MG/DL [facility] MAIN LAB Performing Organization Address City/[facility]/[employer] Phone Number [facility] MAIN LAB [address] [place] [address] * CHEST SINGLE VIEW (03/31/2018 4:50 AM [...] 95 - 99 % [facility] MAIN LAB Olrqwlymzoi-YBG-Ude 22.5 21 - 28 MMOL/L [facility] MAIN LAB Specimen Blood, arterial - Blood Performing Organization Address City/[facility]/Zipcode Phone Number MAIN LAB [address] [place] [address] * COMPREHENSIVE METABOLIC PANEL (03/31/2018 3:50 AM [...] for questions. Specimen Blood Performing Organization Address City/[facility]/Zipcode Phone Number [facility] MAIN LAB [address] [place] [address] * CBC AND DIFF (03/31/2018 3:50 AM [...] MAIN LAB Specimen Blood Performing Organization Address City/[facility]/Zipcode Phone Number [facility] MAIN LAB [address] [place] [address] * POC GLUCOSE (03/30/2018 9:31 PM CDT) Glucose, POC 162 (H) 70 - 100 MG/DL [facility] MAIN LAB Performing Organization Address City/[facility]/Zipcode Phone Number [facility] MAIN LAB [address] [place] [address] * POC GLUCOSE (03/30/2018 5:25 PM CDT) Glucose, POC 138 (H) 70 - 100 MG/DL [facility] MAIN LAB Performing Organization Address [facility]/Zipcode Phone Number [facility] MAIN LAB [address] [place] [address] * US RENAL BLADDER LTD (03/30/2018 4:21 [...] MG/DL [facility] MAIN LAB Performing Organization Address City/[facility]/Zipcode Phone Number [facility] MAIN LAB [address] [place] [address] * OSMOLALITY-URINE RANDOM (03/30/2018 12:31 PM CDT) Osmolality-Urine 364 50 - 1,400 MOS/KG [facility] MAIN LAB Specimen Urine - Urine Performing Organization Address [facility]/[employer] Phone Number [facility] MAIN LAB [address] [place] [address] * UREA NITROGEN-URINE RANDOM (03/30/2018 12:31 PM CDT) Urea Nitrogen 311 MG/DL [facility] MAIN LAB Specimen Urine - Urine Performing Organization Address [facility]/[employer] Phone Number [facility] MAIN LAB [address] [place] [address] * CREATININE-URINE RANDOM (03/30/2018 12:31 PM CDT) Creatinine, Random 244 MG/DL [facility] MAIN LAB Specimen Urine - Urine Performing Organization Address [facility] Phone Number [facility] MAIN LAB [address] [place] [address] * UA REFLEX CULTURE LABEL (03/30/2018 12:30 PM CDT) UA Reflex Culture LAB LABEL [facility] MAIN LAB Specimen Urine Performing Organization Address [facility] Phone Number [facility] MAIN LAB [address] [place] [address] * URINALYSIS MICROSCOPIC REFLEX TO CULTURE (03/30/2018 [...] [facility] MAIN LAB Bacteria,UA FEW (A) NEG-NEG MAIN LAB Squamous Epithelial Cells 10-20 0 - 5 [facility] MAIN LAB Hyaline Cast PACKED [facility] MAIN LAB Renal Epitheilial 0-2 [facility] MAIN LAB Transitional Epithelial 0-2 MAIN LAB Specimen Urine Performing Organization Address [facility] Phone Number [facility] MAIN LAB [address] [place] [address] * URINALYSIS DIPSTICK REFLEX TO CULTURE (03/30/2018 12:30 PM CDT) Color,UA CARLIE [facility] MAIN LAB Turbidity,UA 1+ (A) CLEAR-CLEAR [facility] MAIN LAB Specific Paia-Urine 1.021 1.003 - 1.035 [facility] MAIN LAB [...] MAIN LAB Specimen Urine Performing Organization Address [facility]/[employer] Phone Number [facility] [address] [place] [phone] * TELEMETRY STRIPS-SCAN (03/30/2018 11:43 AM CDT) Narrative Performed At Ordered by an unspecified provider. * POC GLUCOSE (03/30/2018 9:02 AM CDT) Glucose, POC 195 (H) 70 - 100 MG/DL MAIN LAB Performing Organization Address [facility]/[employer] Phone Number [facility] [address] [place] [phone] * COMPREHENSIVE METABOLIC PANEL (03/30/2018 4:10 AM [...] for questions. Specimen Blood Performing Organization Address City/[facility]/Zipcode Phone Number MAIN LAB [address] [place] [address] * CBC AND DIFF (03/30/2018 4:10 AM [...] MAIN LAB Specimen Blood Performing Organization Address City/[facility]/Zipcode Phone Number MAIN LAB [address] [place] [address] * CHEST SINGLE VIEW (03/30/2018 3:08 AM [...] City/State/Zipcode Phone Number [facility] MAIN LAB [address] [place] [address] * POC GLUCOSE (03/29/2018 5:07 PM CDT) Glucose, POC 207 (H) 70 - 100 MG/DL [facility] MAIN LAB Performing Organization Address City/[facility]/[employer] Phone Number [facility] MAIN LAB [address] [place] [address] * OSMOLALITY-URINE RANDOM (03/29/2018 4:02 PM CDT) Osmolality-Urine 342 50 - 1,400 MOS/KG MAIN LAB Specimen Urine - Urine Performing Organization Address City/[facility]/[employer] Phone Number MAIN LAB [address] [place] [address] * UREA NITROGEN-URINE RANDOM (03/29/2018 4:02 PM CDT) Urea Nitrogen 247 MG/DL MAIN LAB Specimen Urine - Urine Performing Organization Address City/[facility]/[employer] Phone Number MAIN LAB [address] [place] [address] * SODIUM-URINE RANDOM (03/29/2018 4:02 PM CDT) Sodium, Random 12 MMOL/L MAIN LAB Specimen Urine - Urine Performing Organization Address City/[facility]/[employer] Phone Number MAIN LAB [address] [place] [address] * CREATININE-URINE RANDOM (03/29/2018 4:02 PM CDT) Creatinine, Random 194 MG/DL MAIN LAB Specimen Urine - Urine Performing Organization Address City/[facility]/[employer] Phone Number MAIN LAB [address] [place] [address] * POC GLUCOSE (03/29/2018 11:33 AM CDT) Glucose, POC 214 (H) 70 - 100 MG/DL [facility] MAIN LAB Performing Organization Address City/[facility]/Zipcode Phone Number MAIN LAB [address] [place] [address] * POC GLUCOSE (03/29/2018 10:32 AM CDT) Glucose, POC 203 (H) 70 - 100 MG/DL [facility] MAIN LAB Performing Organization Address City/[facility]/Zipcode Phone Number MAIN LAB [address] [place] [address] * POC GLUCOSE (03/29/2018 8:37 AM CDT) Glucose, POC 215 (H) 70 - 100 MG/DL MAIN LAB Performing Organization Address City/State/Zipcode Phone Number [facility] MAIN LAB [address] [place] [address] * EGD REPORT (03/29/2018 7:42 AM CDT) Provation Report Patient Name: Donnie CASTILLO OTHER RESULTS Procedure Date: 03/29/2018 7:42 AM CSN: [id number] Date of : 1955 Gender: Female Attending Physician: Dannielle Covington MD Procedure: Upper GI endoscopy Indications: Iron deficiency anemia Providers: Dannielle Covington MD (Doctor), Conner Martines MD (Fellow), Myla Meza RN (Nurse), Lynette Aguero Concrete Floor Installer (Concrete Floor Installer) Referring Physician: Dominic Fuller MD, Deepak Rubin, [...] of the duodenum were normal. Impression: - Caballo-colored mucosa suspicious for Long's esophagus. Biopsy is [...] discussed her endoscopic findings with Dr. Maier (housefellow). 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 Please consult hepatology team for further management. Scope In: 11:08:40 AM Scope Out: 11:17:33 AM Total Procedure Duration Time 0 hours 8 minutes 53 seconds Procedure Code(s): --- Professional --- 25525, Esophagogastroduodenoscopy, flexible, transoral; diagnostic, including collection of specimen(s) by brushing or washing, when performed (separate procedure) Diagnosis Code(s): --- Professional --- K22.8, Other specified diseases of esophagus I85.00, Esophageal varices without bleeding K76.6, Portal hypertension K31.89, Other diseases of stomach and duodenum K31.819, Angiodysplasia of stomach and duodenum without bleeding D50.9, Iron deficiency anemia, unspecified CPT copyright 2016 [employer]. All rights reserved. The codes documented in this report are preliminary and upon surgical coder review may be revised to meet current [...] [facility] MAIN LAB [address] [place] [address] * CBC AND DIFF (03/29/2018 5:00 AM [...] LAB Monocytes 10 4 - 12 % MAIN LAB Eosinophils [...] MAIN LAB Specimen Blood Performing Organization Address City/[facility]/[employer] Phone Number MAIN LAB [address] [place] [address] * POC GLUCOSE (03/28/2018 9:23 PM CDT) Glucose, POC 241 (H) 70 - 100 MG/DL [facility] MAIN LAB Performing Organization Address City/[facility]/[employer] Phone Number [facility] MAIN LAB [address] [place] [address] * POC GLUCOSE (03/28/2018 5:14 PM CDT) Glucose, POC 231 (H) 70 - 100 MG/DL [facility] MAIN LAB Performing Organization Address [facility]/[employer] Phone Number [facility] MAIN LAB [address] [place] [address] * POC GLUCOSE (03/28/2018 1:13 PM CDT) Glucose, POC 196 (H) 70 - 100 MG/DL [facility] MAIN LAB Performing Organization Address [facility]/[employer] Phone Number [facility] MAIN LAB [address] [place] [address] * POC GLUCOSE (03/28/2018 9:24 AM CDT) Glucose, POC 219 (H) 70 - 100 MG/DL [facility] MAIN LAB Performing Organization Address City/[facility]/Zipcode Phone Number [facility] MAIN LAB [address] [place] [address] * COMPREHENSIVE METABOLIC PANEL (03/28/2018 4:50 AM [...] City/State/Zipcode Phone Number [facility] MAIN LAB [address] [place] [address] * CBC AND DIFF (03/28/2018 4:50 AM CDT) White Blood Cells 5.5 4.5 - 11.0 K/UL [facility] MAIN LAB RBC 2.79 (L) 4.0 - 5.0 M/UL MAIN LAB Hemoglobin 8.8 (L) 12.0 - 15.0 GM/DL [facility] Hematocrit 27.0 (L) 36 - 45 % MAIN LAB MCV 96.9 80 - 100 FL [facility] MCH 31.5 26 - 34 PG [facility] MCHC 32.5 32.0 - 36.0 G/DL [facility] RDW 19.3 (H) 11 - 15 % MAIN LAB Platelet Count 157 150 - 400 K/UL [facility] MPV 8.3 7 - 11 FL MAIN LAB Neutrophils 72 41 - 77 % [facility] MAIN LAB Lymphocytes 14 (L) 24 - 44 % MAIN LAB Monocytes 9 4 - 12 % [facility] Eosinophils 5 0 - 5 % [facility] Basophils 0 0 - 2 % [facility] Absolute Neutrophil Count 3.90 1.8 - 7.0 K/UL [facility] Absolute Lymph Count 0.80 (L) 1.0 - 4.8 K/UL [facility] Absolute Monocyte Count 0.50 0 - 0.80 K/UL [facility] Absolute Eosinophil Count 0.30 0 - 0.45 K/UL [facility] Absolute Basophil Count 0.00 0 - 0.20 K/UL [facility] Specimen Blood Performing Organization Address City/[facility]/[employer] Phone Number MAIN LAB [address] [place] [address] * POC GLUCOSE (03/27/2018 9:23 PM CDT) Glucose, POC 200 (H) 70 - 100 MG/DL [facility] MAIN LAB Performing Organization Address City/[facility]/[employer] Phone Number MAIN LAB [address] [place] [address] * POC GLUCOSE (03/27/2018 6:31 PM CDT) Glucose, POC 201 (H) 70 - 100 MG/DL [facility] MAIN LAB Performing Organization Address City/[facility]/[employer] Phone Number MAIN LAB [address] [place] [address] * ECG-SCAN (03/27/2018 11:05 AM CDT) Narrative Performed At Ordered by an unspecified provider. * POC GLUCOSE (03/27/2018 9:59 AM CDT) Glucose, POC 191 (H) 70 - 100 MG/DL [facility] MAIN LAB Performing Organization Address City/[facility]/[employer] Phone Number [facility] MAIN LAB [address] [place] [address] * POC GLUCOSE (03/27/2018 7:37 AM CDT) Glucose, POC 213 (H) 70 - 100 MG/DL [facility] MAIN LAB Performing Organization Address [facility]/[employer] Phone Number [facility] MAIN LAB [address] [place] [address] * COMPREHENSIVE METABOLIC PANEL (03/27/2018 5:30 AM [...] for questions. Specimen Blood Performing Organization Address City/[facility]/[employer] Phone Number [facility] MAIN LAB [address] [place] [address] * CBC AND DIFF (03/27/2018 5:30 AM [...] MAIN LAB Specimen Blood Performing Organization Address City/[facility]/[employer] Phone Number [facility] MAIN LAB [address] [place] [address] * URINALYSIS, MICROSCOPIC (03/27/2018 2:59 AM CDT) WBCs,UA 0-2 0 - 2 /HPF [facility] MAIN LAB RBCs,UA 0-2 0 - 3 /HPF [facility] MAIN LAB MucousUA TRACE [facility] MAIN LAB Squamous Epithelial Cells 5-10 0 - 5 [facility] MAIN LAB Hyaline Cast PACKED [facility] MAIN LAB Specimen Urine - Urine Performing Organization Address City/[facility]/[employer] Phone Number [facility] MAIN LAB [address] [place] [address] * URINALYSIS DIPSTICK (03/27/2018 2:59 AM CDT) Color,UA YELLOW [facility] MAIN LAB Turbidity,UA CLEAR CLEAR-CLEAR [facility] MAIN LAB Specific Paia-Urine 1.015 1.003 - 1.035 [facility] MAIN LAB [...] Specimen Urine - Urine Performing Organization Address [facility]/[employer] Phone Number MAIN LAB [address] [place] [address] * TRANSFUSE RBC'S NON-BLEEDING PT (03/26/2018 10:53 PM CDT) * TRANSFUSE RBC'S NON-BLEEDING PT (03/26/2018 10:53 PM CDT) * POC GLUCOSE (03/26/2018 9:29 PM CDT) Glucose, POC 233 (H) 70 - 100 MG/DL [facility] MAIN LAB Performing Organization Address [facility]/[employer] Phone Number [facility] MAIN LAB [address] [place] [address] * POC GLUCOSE (03/26/2018 3:10 PM CDT) Glucose, POC 177 (H) 70 - 100 MG/DL [facility] MAIN LAB Performing Organization Address [facility] Phone Number [facility] MAIN LAB [address] [place] [address] * CHEST X-RAY INSPIRATION/EXPIRATION (03/26/2018 1:41 PM [...] The needle was removed, and an 8 Ethiopian pigtail all purpose drainage catheter was advanced [...] The needle was removed, and an 8 Ethiopian pigtail all purpose drainage catheter was advanced [...] on 03/26/2018 2:14 PM. Performing Organization Address [facility] Phone Number RAD RESULTS * POC GLUCOSE (03/26/2018 7:57 AM CDT) Glucose, POC 210 (H) 70 - 100 MG/DL MAIN LAB Performing Organization Address [facility] Phone Number MAIN LAB [address] [place] [address] * CBC AND DIFF (03/26/2018 2:02 AM [...] 0.20 K/UL MAIN LAB Performing Organization Address [facility] Phone Number MAIN LAB [address] [place] [address] * COMPREHENSIVE METABOLIC PANEL (03/26/2018 2:02 AM [...] Clinical Pharmacist for questions. Performing Organization Address City/[facility]/Zipcode Phone Number [facility] [address] [place] [address] * TROPONIN-I (03/26/2018 2:02 AM CDT) Troponin-I 0.01 0.0 - 0.05 NG/ML [facility] Specimen Blood Performing Organization Address City/[facility]/Zipcode Phone Number [facility] [address] [place] [address] * POC GLUCOSE (03/25/2018 9:25 PM CDT) Glucose, POC 190 (H) 70 - 100 MG/DL MAIN LAB Performing Organization Address City/[facility]/Zipcode Phone Number [facility] [address] [place] [address] * CULTURE-BLOOD W/SENSITIVITY (03/25/2018 8:58 PM CDT) Battery Name BLOOD CULTURE MAIN LAB Specimen Description BLOOD MAIN LAB LEFT UPPER ARM Special Requests NONE MAIN LAB Culture NO GROWTH 5 DAYS [facility] MAIN LAB Report Status FINAL [facility] MAIN LAB 03/31/2018 Specimen Blood Performing Organization Address City/[facility]/Zipcode Phone Number MAIN LAB [address] [place] [address] * PHOSPHORUS (03/25/2018 8:53 PM CDT) Phosphorus 3.3Comment: NOTE NEW REFERENCE 2.0 - 4.5 MG/DL MAIN LAB RANGES Specimen Blood Performing Organization Address City/[facility]/[employer] Phone Number MAIN LAB [address] [place] [address] * MAGNESIUM (03/25/2018 8:53 PM CDT) Magnesium 1.7 1.6 - 2.6 mg/dL MAIN LAB Specimen Blood Performing Organization Address [facility] Phone Number MAIN LAB [address] [place] [address] * TYPE & CROSSMATCH (03/25/2018 8:53 PM CDT) Units Ordered 1 MAIN LAB Crossmatch Expires 03/28/2018 MAIN LAB Record Check FOUND MAIN LAB ABO/RH(D) A POS MAIN LAB Antibody Screen NEG MAIN LAB Patient has a history of a clinically significant antibody. Unit Number [id number] MAIN LAB Blood Component Type RBC,ADSOL,LEUKO REDUCED MAIN LAB Unit Division 0 MAIN LAB Status OF Unit TRANSFUSED MAIN LAB Transfusion Status OK TO TRANSFUSE MAIN LAB Crossmatch Result COMPATIBLE, GEL MAIN LAB Specimen Blood Performing Organization Address [facility]/[employer] Phone Number MAIN LAB [address] [place] [address] * LACTIC ACID (BG - RAPID LACTATE) (03/25/2018 8:53 PM CDT) Lactic Acid,BG 1.3 0.5 - 2.0 MMOL/L [facility] MAIN LAB Specimen Blood Performing Organization Address [facility]/[employer] Phone Number MAIN LAB [address] [place] [address] * CULTURE-BLOOD W/SENSITIVITY (03/25/2018 8:53 PM CDT) Battery Name BLOOD CULTURE MAIN LAB Specimen Description BLOOD MAIN LAB LEFT ANTECUBITAL Special Requests NONE [facility] MAIN LAB Culture NO GROWTH 5 DAYS [facility] MAIN LAB Report Status FINAL [facility] MAIN LAB 03/31/2018 Specimen Blood Performing Organization Address City/[facility]/Zipcode Phone Number [facility] MAIN LAB [address] [place] [address] * TROPONIN-I (03/25/2018 8:53 PM CDT) Troponin-I 0.01 0.0 - 0.05 NG/ML [facility] MAIN LAB Specimen Blood Performing Organization Address City/[facility]/Zipcode Phone Number MAIN LAB [address] [place] [address] * CT HEAD WO CONTRAST (03/25/2018 6:23 [...] on 03/25/2018 8:54 PM. Performing Organization Address City/[facility]/[employer] Phone Number RAD RESULTS * BNP POC ER (03/25/2018 4:16 PM CDT) BNP POC 327.0 (H) 0 - 100 PG/ML [facility] MAIN LAB Performing Organization Address [facility] Phone Number [employer] MAIN LAB [address] [place] [address] * POC TROPONIN (03/25/2018 4:09 PM CDT) Gjbotvsd-A-ERV 0.00 0.00 - 0.05 NG/ML [facility] MAIN LAB Performing Organization Address [facility] Phone Number [employer] MAIN LAB [address] [place] [address] * PHOSPHORUS (03/25/2018 4:07 PM CDT) Phosphorus 3.5Comment: NOTE NEW REFERENCE 2.0 - 4.5 MG/DL [employer] MAIN LAB RANGES Specimen Blood Performing Organization Address [facility]/[employer] Phone Number MAIN LAB [address] [place] [address] * MAGNESIUM (03/25/2018 4:07 PM CDT) Magnesium 1.8 1.6 - 2.6 mg/dL [employer] [facility]ments MAIN LAB Specimen Blood Performing Organization Address [facility]/[employer] Phone Number MAIN LAB [address] [place] [address] * COMPREHENSIVE METABOLIC PANEL (03/25/2018 4:07 PM CDT) Sodium 134 (L) 137 - 147 MMOL/L [facility]IN [facility] Potassium 4.4 3.5 - 5.1 MMOL/L [facility] Chloride 104 98 - 110 MMOL/L [employer] MAIN LAB Glucose 163 (H) 70 - [...] Address City/State/Zipcode Phone Number MAIN LAB [address] [place] [address] * CBC AND DIFF (03/25/2018 4:07 PM [...] MAIN LAB Specimen Blood Performing Organization Address City/State/[place] Phone Number [facility]IN [facility] [address] [place] [address] * CHEST SINGLE VIEW (03/25/2018 3:50 PM [...] on 03/25/2018 4:28 PM. Performing Organization Address City/State/[place] Phone Number [facility] RAD RESULTS * ECG-SCAN [...] MEALS AND AT BEDTIME, First dose on 03/28/18 at 1100, Until Discontinued, -POC glucose 140-180mg/dL at , , administer 2 units insulin, at , 03* administer 0 units. -POC glucose 181-220mg/dL at , , administer 4 units insulin, at , 03* administer 2 units. -POC glucose 221-260mg/dL at , , administer 6 units insulin, at , 03* administer 4 units. -POC glucose 261-300mg/dL at [...]
--- OUTSIDE RECORDS SUMMARY | 2018-06-18 13:48 | XMS REPORT | Encounter Summary ---
Author Author [facility] Organization [facility] Address Unknown Phone Unavailable Care Team Providers Care Air Compressor Operator Name Role Phone Carla Wilson MD PCP Naima Field MD Unavailable Winnie Jorge MD Unavailable Reason for Visit * Reason Comments Post Operative Visit Post-Op CABG Encounter Details Care Team Description Date Type Department Lance Pal MD [address] [facility] [address] [place] [address] PAF (paroxysmal atrial fibrillation) (HCC) (Primary Dx) 03/24/2018 Office Visit [facility] Cardi[facility] Sur[facility] [place] [address] Social History Date Tobacco Use [...] minimally. She has followed up with her java user interface developer in [facility] Dr. Jorge who recently saw her [...] the patient, and EP and her home java user interface developer we would recommend better rate control. We did recommend admission to the hospital today in which she refused and would prefer to come back tomorrow morning. Unfortunately, she is uninsured at this time and is medically stable. We did contact her java user interface developer office and they are going to medically [...] continue to follow with her PCP and java user interface developer for continued care. Thank you for the [...] bypass surgery in early February [facility]. Her postoperative course was complicated by atrial [...] have spoken to the office of her java user interface developer in [facility] and she is to receive follow- [...]
--- OUTSIDE RECORDS SUMMARY | 2018-06-18 13:48 | XMS REPORT | Encounter Summary ---
Author Author [facility] Organization [facility] Address Unknown Phone Unavailable Care Team Providers Care Chief Information Officer Name Role Phone Carla Wilson MD PCP Naima Field MD Unavailable Winnie Jorge MD Unavailable Encounter Details Care Team Description Date Type Department Lance Pal MD [address] [facility] [address] [place] [address] 03/24/2018 Hospital Cardiovascular Medicine Encounter [id number] [address] [place], [place] [id number] Social History Date Tobacco Use Types Packs/Day [...] as needed for Nausea or Vomiting. 02/27/2018 traMADol (ULTRAM) 50 mg Take one 30 tablet 0 tablet tablet by mouth every 6 hours as needed for Pain. 06/02/2018 GLUCOSAMINE Take 1 tablet 0 HCL/CHONDROITIN CALDERON by mouth (GLUCOSAMINE-CHONDROITIN twice daily. PO) 02/27/2018 03/26/2018 metoprolol tartrate Take one 30 tablet 1 (LOPRESSOR) 50 mg tablet tablet by mouth twice daily. 02/27/2018 03/26/2018 rosuvastatin (CRESTOR) 40 Take one 90 tablet 3 mg tablet tablet by mouth daily. 02/27/2018 06/18/2018 senna/docusate Take two 20 tablet 0 (SENOKOT-S) 8.6/50 mg tablets by tablet mouth twice daily. 03/26/2018 sucralfate (CARAFATE) 1 Take 1 [...]
--- OUTSIDE RECORDS SUMMARY | 2018-06-18 13:48 | XMS REPORT | Encounter Summary ---
Author Author [facility] Organization [facility] Address Unknown Phone Unavailable Care Team Providers Care Space Operations Officer Name Role Phone Carla Wilson MD PCP Naima Field MD Unavailable Winnie Jorge MD Unavailable Reason for Visit * Reason Comments General Question tachycardia Encounter Details Care Team Description Date Type Department Sophie Avina RN General Question (tachycardia) 03/25/2018 Telephone [facility] Thoracic & Cardiovascular Surgeons [place] [address] [address] [place], [place] [id number] Social History Date Tobacco Use Types Packs/Day [...] this AM (as prescribed by her Primary Child Nutrition Manager). Pt is SOB and lightheaded. She was [...]
[2018-06-18 13:50] VITALS: BP 118/62
--- NOTE | 2018-06-18 14:17 | ST Cognitive Linguistic Eval ---
Speech Evaluation-General Medical Diagnosis Sepsis, respiratory failure Onset Date: May 30, 2018 Therapy Diagnosis Therapy Diagnosis: Cognitive-communication Precautions Precautions: Fall Medical History Reviewed History: Yes Social History Current Living Status: Spouse Speech PLF-Current Status Prior Level of Function Prior to the patient's fall that resulted in hospitalization for sepsis and respiratory failure, patient was independent with all of her daily needs. Subjective Patient was pleasant and cooperative with the evaluation process. Language Eval: Auditory Comprehends Simple Yes/No Ques: Functional Indent/Objects Multiple Malhotra: Functional Ident/Pics in Multiple Malhotra: Functional Follows 1-Step Commands: Functional Follows Complex Directions: Functional Follows General Conversations: Functional Language Eval: Verbal Language Completes Spontaneous Greeting: Functional Produces Auto, Serial Info: Functional Imitates Simple Words/Phrases: Functional Word Finding: Functional Requests Basic Needs: Functional States Basic Personal Info: Functional Expresses Complex Ideas: Functional Cognitive Patient Orientation Patient is oriented to all concepts. Objective Cognitive Domain Attention: WNL Memory: WNL Problem Solving: Functional Executive Functions: [facility] Objective Formal/Standardized Tests [facility] Cognitive/communication Results Memory: Immediate, 3/3, Delayed 3/3 w/o cues, Auditory Processing: Simple: 4/4, Complex 4/4, Orientation: 3/3, Mental Flexibility: 4/4 Oral Motor/Speech Production Within Functional Limits Impression Patient is a 62 year old female who was admitted to ARU from [facility] this afternoon. Patient was evaluated for cognitive communication with no deficits noted. Patient is a valid historian of her current illness. Communication/Social Cognition Comprehension: 7 Expression: 7 Social Interaction: 7 Problem Solvin Memory: 7 Speech Patient Assess Expression of Ideas/Wants: Expression (4) Understanding Verbal Content: Understands (4) Brief Interview-Mental Status: Yes Repetition of Three Words: Three (3) Temporal Orientation: Year: Correct (3) Temporal Orientation: Month: Accurate within 5 days(2) Temporal Orientation: Day: Correct (1) Recall : Wear to say "Sock": Yes, no cue required (2) Recall : Color: Yes, no cue required (2) Recall : Bed: Yes, no cue required (2) Memory/Recall Ability: Current season, That he or she is in a hsp/hsp unit Speech Short Term Goals Short Term Goals Short Term Goals 1) Patient will be able to follow through with therapy directions at 90% or greater. 2) Patient will be able to recall new information with 90% or greater. Speech Coordinate Measuring Machine Operator Goals Nursing Home Goals Patient will increase safety and independence as a result of skilled therapy in order to return home. Speech-Plan Patient/Family Goals Patient/Family Goals: Patient will return home with her post rehab. Treatment Plan Speech Therapy Treatment Plan: Continue Plan of Care Patient is not recommended for skilled ST services at this time. Treatment Duration: Jun 18, 2018 Frequency: 1 time per week Estimated Hrs Per Day: .25 hour per day Rehab Potential: Good Barriers to Learning: Patient has had a complex medical history in the past month. Pt/Family Agrees to Plan: Yes Safety Risks/Education Teaching Recipient: Patient, Significant Other Teaching Methods: Discussion Response to Teaching: Verbalize Understanding Education Topics Provided: Safety within her room Time Speech Therapy Time In: 13:50 Speech Therapy Time Out: 14:05 Total Billed Time: 15 Billed Treatment Time 1, NGA [place] Jun 18, 2018 14:17
--- NOTE | 2018-06-18 14:32 | Physical Therapy Evaluation ---
PT Evaluation-General Medical Diagnosis Admission Date Jun 18, 2018 at 13:15 Medical Diagnosis: Sepsis, respiratory failure Onset Date: May 30, 2018 Therapy Diagnosis Therapy Diagnosis: impaired mobility, strength, endurance Height/Weight Height (Feet): 5 Height (Inches): 4.00 Weight (Pounds): 289 Weight (Ounces): 0.0 Referral Physician: Sarah Morrell DO Reason for Referral: Evaluation/Treatment Medical History Pertinent Medical History: Atrial Fib, CABG, CAD, DM, Heart Failure, HTN, Hypothroidism Additional Medical History GI bleed, CKD, morbid obesity, ESLD, esophageal varices Reviewed History: Yes Social History Home: Single Level Current Living Status: Spouse Entry Into Home: Ramp Prior/Core FIM Prior Level of Function Therapy Code Descriptions/Definitions Functional [place] Measure: 0=Not Assessed/NA 4=Minimal Assistance 1=Total Assistance 5=Supervision or Setup 2=Maximal Assistance 6=Modified [place] 3=Moderate Assistance 7=Complete [place] Therapy Quality Codes: 6 Independent with activity with or without an assistive device 5 Patient requires set up or clean up by helper. Patient completes activity by themselves 4 Supervision or touching assist (CGA). [place] provide cues , steadying assist 3 The helper provides less than half the effort to complete the activity 2 The helper provides more than half the effort to complete the activity 1 Dependent. The helper does all the effort to complete an activity 7 Patient refused to complete or attempt activity 9 The patient did not perform the activity before the current illness or injury 88 Not attempted due to Medical conditions or safety concerns Functional Abilities and Goals: Independent: Patient completed the activities by him/herself, with or without an assistive device, with no assistance from a helper. Needed Some Help: Patient needed partial assistance from another person to complete activities. Dependent: A helper completed the activities for the patient. Unknown: Not Applicable: Bed Mobility: 6 Transfers (B,C,W/C) (FIM): 6 Gait: 6 Stairs: 6 Patient states she was using a rolling walker previously PT Evaluation-Current Subjective Patient in truck in front of hospital, she came from this morning in private vehicle. Patient has 3/10 low back pain. Pt/Family Goals to be independent at home Objective Patient Orientation: Person, Place, Situation ROM/Strength ROM Lower Extremities limited in both lower extremities due to obesity and LE edema Strenght Lower Extremities 4-/5 gross bilateral lower extremities except for hip flexion which is 3-/5 Integumentary/Posture Integumentary BLE edema Neuromuscular (Tone, Coordination, Reflexes) NT Sensory Hearing: Functional Sensation Right Lower Extremit: Intact Sensation Left Lower Extremity: Impaired Sensation Lower Extremities Patient has some numbness round the medial calf she says due to vein harvesting Transfers Therapy Code Descriptions/Definitions Functional [place] Measure: 0=Not Assessed/NA 4=Minimal Assistance 1=Total Assistance 5=Supervision or Setup 2=Maximal Assistance 6=Modified [place] 3=Moderate Assistance 7=Complete [place] Therapy Quality Codes: 6 Independent with activity with or without an assistive device 5 Patient requires set up or clean up by helper. Patient completes activity by themselves 4 Supervision or touching assist (CGA). [place] provide cues , steadying assist 3 The helper provides less than half the effort to complete the activity 2 The helper provides more than half the effort to complete the activity 1 Dependent. The helper does all the effort to complete an activity 7 Patient refused to complete or attempt activity 9 The patient did not perform the activity before the current illness or injury 88 Not attempted due to Medical conditions or safety concerns Transfers (B, C, W/C) (FIM): 3 Scootin Rollin Roll Left to Right (QC): 4 Supine to/from Sit: 3 Sit to/from Stand: 4 bed t/f WC(FIM only if WC use): 4 Sit to Lying (QC): 2 Lying to Sitting/Side of Bed(Q: 5 Sit to Stand (QC): 4 Chair/Wri-kq-Miqbe Xfer(QC): 4 Car Transfer (QC): 3 Patient performs bed mobility with SBA, supine to sit with mod assist, sit to supine with SBA, sit to stand with CGA/Luis, transfers CGA, car transfer min assist. Gait Does the Patient Walk?: Yes Mode of Locomotion: Walk Anticipated Mode of Locomotion: Walk Walk 10 feet (QC): 4 Distance: 15 Gait Level of Assist: 5 Gait Persons Needed: 1 Gait Assistive Device: FWW Comments/Gait Description Patient can ambulate 15' with a rolling walker with CGA. She is very weak and states her knees feel like they will buckle at any moment but this did not occur. Uneven surface not tested for this reason. Wheelchair Training Does the Pt Use a Wheelchair?: Yes Wheelchair (FIM): 1 Type of Wheelchair: Manual Stairs If not tested on admit;explain Stairs not tested due to weakness and fear of knee buckling. Balance Sitting Static: Normal Sitting Dynamic: Normal Standing Static: Fair Standing Dynamic: Fair Treatment Also co-treated with OT for bathing, dressing, grooming. PT worked with standing and positioning and ambulation during these activities. Assessment/Needs Patient has impaired mobility, strength, endurance. She feels like her knees will buckle during ambulation and transfers. Patient was not on O2 when she got here and O2 was 73%, with 2L of O2 through nasal canula it came up to over 90%. Rehab Potential: Fair PT Short Term Goals Short Term Goals Time Frame: Jun 25, 2018 Transfers (B,C,W/C) (FIM): 4 Gait (FIM): 1 Gait Distance Comment: 25' Gait Level of Assist: 4 Gait Assistive Device: FWW PT Real Estate Legal Assistant Goals Penitentiary Goals PT Real Estate Legal Assistant Goals Time Frame: Jul 09, 2018 Transfers (B,C,W/C) (FIM): 5 Sit to Lying (QC): 4 Lying-Sitting on Side/Bed(QC): 4 Sit to Stand (QC): 4 Rollin Roll Left to Right (QC): 4 Chair/Mjk-al-Pszin Xfer(QC): 4 Car Transfer (QC): 4 Gait (FIM): 2 Distance: 50' Walk 10 feet (QC): 4 Walk 10ft-Uneven Surface(QC): 4 Walk 50ft with 2 Turns (QC): 4 Gait Level of Assist: 5 Gait Assistive Device: FWW Stairs (FIM): 1 # of Steps: 1 1 Step (curb) (QC): 4 Stairs Level Of Assist: 4 PT Plan Problem List Problem List: Activity Tolerance, Functional Strength, Safety, Balance, Gait, Transfer, Bed Mobility, ROM Treatment/Plan Treatment Plan: Continue Plan of Care Treatment Plan: Bed Mobility, Concurrent Therapy, Education, Functional Activity Tamy, Functional Strength, Group Therapy, Gait, Safety, Therapeutic Exercise, Transfers Treatment Duration: Jul 09, 2018 Frequency: At least 5 of 7 days/Wk (IRF) Estimated Hrs Per Day: 1.5 hours per day Patient and/or Family Agrees t: Yes Safety Risks/Education Patient Education: Gait Training, Transfer Techniques, Correct Positioning, W/ C Management, Safety Issues Teaching Recipient: Patient Teaching Methods: Demonstration, Discussion Response to Teaching: Reinforcement Needed Discharge Recommendations Plan Patient will perform bed mobility and transfer training, balance and endurance training, functional strengthening, stair training, gait training, and education , to improve functional mobility and independence at home. Therapy D/C Recommendations: Home w/ Family Support, Fpc (TCU/NH) Time/GCodes Time In: 1305 Time Out: 1505 Total Billed Treatment Time: 85 Total Billed Treatment 1 visit EVM 25' GT 15' FA 45' PT eval was from 2491-2183, then OT saw patient until 1350, then ST from 1350- 1405. Then co-treated from 5045-3087. LEIGHTON HOUSER PT Jun 18, 2018 14:32
[2018-06-18] MEDS ORDERED: LEVO175T5 PO (14:38)
[2018-06-18] MEDS ORDERED: TIZA4TAB3 PO (14:38)
[2018-06-18] MEDS ORDERED: SENN-145 PO (14:38)
[2018-06-18] MEDS ORDERED: METO100T12 PO (14:38)
[2018-06-18] MEDS ORDERED: CETI10TA20 PO (14:38)
[2018-06-18] MEDS ORDERED: INSU100I14 SQ (14:38)
[2018-06-18] MEDS ORDERED: INSN1U SQ (14:38)
[2018-06-18] MEDS ORDERED: TRAM50TA2 PO (14:38)
[2018-06-18] MEDS ORDERED: FURO40TA4 PO (14:38)
[2018-06-18] MEDS ORDERED: ASPI-983 PO (14:38)
[2018-06-18] MEDS ORDERED: DIPH25CA79 PO (14:38)
[2018-06-18] MEDS ORDERED: NITR0.4T SL (14:38)
[2018-06-18] MEDS ORDERED: ACET325T38 PO (14:43)
--- NOTE | 2018-06-18 14:43 | Occupational Therapy Eval ---
OT Evaluation-General/PLF Medical Diagnosis Admission Date Jun 18, 2018 at 13:15 Medical Diagnosis: Sepsis, respiratory failure Onset Date: May 30, 2018 Therapy Diagnosis Therapy Diagnosis: decreased self care skills Height/Weight Height (Feet): 5 Height (Inches): 4.00 Weight (Pounds): 262 Weight (Ounces): 0.0 Referral Physician: Sarah Morrell DO Medical History Pertinent Medical History: Atrial Fib, CABG, CAD, DM, Heart Failure, HTN, Hypothroidism Additional Medical History GI bleed, CKD, morbid obesity, ESLD, esophageal varices, Social History Home: Single Level Current Living Status: Spouse Entry Into Home: Ramp ADL-Prior Level of Function Therapy Code Descriptions/Definitions Functional [place] Measure: 0=Not Assessed/NA 4=Minimal Assistance 1=Total Assistance 5=Supervision or Setup 2=Maximal Assistance 6=Modified [place] 3=Moderate Assistance 7=Complete [place] Therapy Quality Codes: 6 Independent with activity with or without an assistive device 5 Patient requires set up or clean up by helper. Patient completes activity by themselves 4 Supervision or touching assist (CGA). [place] provide cues , steadying assist 3 The helper provides less than half the effort to complete the activity 2 The helper provides more than half the effort to complete the activity 1 Dependent. The helper does all the effort to complete an activity 7 Patient refused to complete or attempt activity 9 The patient did not perform the activity before the current illness or injury 88 Not attempted due to Medical conditions or safety concerns Functional Abilities and Goals: Independent: Patient completed the activities by him/herself, with or without an assistive device, with no assistance from a helper. Needed Some Help: Patient needed partial assistance from another person to complete activities. Dependent: A helper completed the activities for the patient. Unknown: Not Applicable: ADL PLOF Comments Pt reports being independent prior to illness. Self Care: Independent Functional Cognition: Independent DME/Equipment: Bath Chair, Tall Toilet, Tub/Shower OT Current Status Subjective Pt agreeable to therapy this afternoon. Reports fatigue secondary to car ride. Mental Status/Objective Patient Orientation: Person, Place, Situation Current Glasses/Contacts: Yes (reading) Hearing Aids: No Dentures/Partials: Yes (upper) Hand Dominance: Right Upper Extremity ROM Grossly WFL Upper Extremity Coordination Intact Upper Extremity Strength Grossly 4/5 ADL-Treatment ADL-Current Pt requests to use restroom. Transfer w/c to toilet with minimal assistance using FWW. Pt able to pull pants down and complete toileting hygiene. Pt requires minimal assistance for balance during standing for pant hike. Min assist required to stand from toilet, uses grab bar for safety. Gait to bed with FWW, min assist for balance. Pt fatigues with activity and requires seated rest break. Pt participated in UE assessment while seated EOB. Pt sitting EOB with needs met and speech therapist present after session. Toileting (FIM): 4 Toileting Hygiene (QC): 3 Toilet/Commode Transfer (FIM): 4 Toilet Transfer (QC): 3 Education OT Patient Education: Rehab process Teaching Recipient: Patient Teaching Methods: Discussion Response to Teaching: Verbalize Understanding OT Short Term Goals Short Term Goals Time Frame: Jun 25, 2018 Lower Body Dressing(FIM): 5 Toileting(FIM): 5 Toilet/Commode Transfer(FIM): 5 1=Demonstrate adherence to instructed precautions during ADL tasks. 2=Patient will verbalize/demonstrate understanding of assistive devices/ modifications for ADL. 3=Patient will improve strength/tolerance for activity to enable patient to perform ADL's. OT Community Recreation Programmer Goals Community Recreation Programmer Goals Time Frame: Jul 09, 2018 Eating (FIM): 6 Eating (QC): 6 Groomin Oral Hygiene (QC): 6 Bathing(FIM): 6 Shower/Bathe Self (QC): 6 Upper Body Dressing(FIM): 6 Upper Body Dressing (QC): 6 Lower Body Dressing(FIM): 6 Lower Body Dressing (QC): 6 On/Off Footwear (QC): 6 Toileting(FIM): 6 Toileting Hygiene (QC): 6 Toilet/Commode Transfer(FIM): 6 Toilet/Commode Transfer (QC): 6 Shower Transfer(FIM): 5 Additional Goals: 1-Demonstrate ADL Tasks, 2-Verbalize Understanding, 3- ImproveStrength/Tamy 1=Demonstrate adherence to instructed precautions during ADL tasks. 2=Patient will verbalize/demonstrate understanding of assistive devices/ modifications for ADL. 3=Patient will improve strength/tolerance for activity to enable patient to perform ADL's. OT Education/Plan Problem List/Assessment Assessment: Decreased Activ Tolerance, Decreased UE Strength, Dependent Transfers, Impaired I ADL's, Impaired Self-Care Skills Pt demonstrates decreased activity tolerance, strength, mobility, and ADL functioning. Pt to benefit from skilled OT intervention for ADL training, transfers, strengthening, and home safety education to increase functional independence and allow safe discharge home. Discharge Recommendations Plan/Recommendations: Continue POC Treatment Plan/Plan of Care Treatment,Training & Education: Yes Patient would benefit from OT for education, treatment and training to promote independence in ADL's, mobility, safety and/or upper extremity function for ADL' s. Plan of Care: ADL Retraining, Functional Mobility, Group Exercise/Act as Ind, UE Funct Exercise/Act Treatment Duration: Jul 09, 2018 Frequency: At least 5 of 7 days/Wk (IRF) Estimated Hrs Per Day: 1.5 hours per day Rehab Potential: Good Time/GCodes Start Time: 13:30 Stop Time: 13:50 Total Time Billed (hr/min): 20 Billed Treatment Time 1 visit, LEON(20minutes) LAURA CARIAS OT Jun 18, 2018 14:43
--- NOTE | 2018-06-18 14:44 | NUR ---
PATIENT HAD BEEN ADMITTED TO OUR FACILITY IN MAY AND MED REC WAS COMPLETED BY ME AT THAT TIME. I UPDATED THE MED REC TO THAT LIST AT THIS TIME WELL LOOKING AT THE DISCHARGE MED LIST FROM . NOTE THE FOLLOWING CHANGES WERE MADE WHEN THE PATIENT DISCHARGED FROM THAT ARE NOT CURRENTLY REFLECTED ON THE HOME MED REC: START TAKING: MIRALAX 17GM BID PRN MYLICON 80MG CHEW 1 Q6H PRN CHANGE HOW YOU TAKE: FUROSEMIDE (INCREASED TO 80MG DAILY, WAS TAKING 40MG DAILY) METOPROLOL TARTRATE (DECREASED TO 50MG BID, WAS TAKING 100MG BID) STOP TAKING: DILTIAZEM CD 180MG DAILY
--- NOTE | 2018-06-18 15:22 | Occupational Ther Daily Note ---
OT Current Status-Daily Note Subjective Pt alert, sitting in w/c. Pt agrees to therapy. C/o fatigue. No c/o pain. Mental Status/Objective Patient Orientation: Person, Place, Time, Situation Therapy Code Descriptions/Definitions Functional [place] Measure: 0=Not Assessed/NA 4=Minimal Assistance 1=Total Assistance 5=Supervision or Setup 2=Maximal Assistance 6=Modified [place] 3=Moderate Assistance 7=Complete [place] Attachments: Oxygen ADL-Treatment Pt agrees to shower. Pt will need AE for lower body dressing and toileting. OT /PT co-treated for skilled care due to decreased mobility and decreased activity tolerance. PT working on transfers, ambulation and standing balance. OT working on ADLs and shower transfer. After therapy, pt lying in bed with call light/phone in reach. All needs met in room. Therapy Code Descriptions/Definitions Functional [place] Measure: 0=Not Assessed/NA 4=Minimal Assistance 1=Total Assistance 5=Supervision or Setup 2=Maximal Assistance 6=Modified [place] 3=Moderate Assistance 7=Complete [place] Therapy Quality Codes: 6 Independent with activity with or without an assistive device 5 Patient requires set up or clean up by helper. Patient completes activity by themselves 4 Supervision or touching assist (CGA). [place] provide cues , steadying assist 3 The helper provides less than half the effort to complete the activity 2 The helper provides more than half the effort to complete the activity 1 Dependent. The helper does all the effort to complete an activity 7 Patient refused to complete or attempt activity 9 The patient did not perform the activity before the current illness or injury 88 Not attempted due to Medical conditions or safety concerns Eating (FIM): 6 (Dentures. Pt has demonstrated ability to open containers/ packages then use regular utensils to eat.) Eating (QC): 6 Grooming (FIM): 4 (Pt initially stood at sink with CGA then requested to sit in w/c to finish grooming.) Oral Hygiene (QC): 4 Bathing (FIM): 3 (Using grabbar, hand held shower and shower bench pt able to complete most of bathing. Will need AE to cleanse feet and buttocks.) Bathing Location: L Arm, R Arm, L Upper Leg, R Upper Leg, Chest, Abdomen, Perineal Area Shower/Bathe Self (QC): 3 Upper Body (FIM): 4 (After set up, pt able to don/doff shirt. Assist to turn bra around. Pt able to hook and pull straps onto shldrs.) Upper Body Dressing (QC): 3 Lower Body Dressing (FIM): 2 (Assist to don/doff clothing over feet. CGA in standing to hike pants over hips.) Lower Body Dressing (QC): 2 On/Off Footwear (QC): 2 Shower Transfer(FIM): 4 (Min A using w/c, shower bench and grabbars.) OT Short Term Goals Short Term Goals Time Frame: Jun 25, 2018 Lower Body Dressing(FIM): 5 Toileting(FIM): 5 Transfers (B,C,W/C) (FIM): 4 Toilet/Commode Transfer(FIM): 5 1=Demonstrate adherence to instructed precautions during ADL tasks. 2=Patient will verbalize/demonstrate understanding of assistive devices/ modifications for ADL. 3=Patient will improve strength/tolerance for activity to enable patient to perform ADL's. OT Day Care Home Provider Goals Day Care Home Provider Goals Time Frame: Jul 09, 2018 Eating (FIM): 6 Eating (QC): 6 Groomin Oral Hygiene (QC): 6 Bathing(FIM): 6 Shower/Bathe Self (QC): 6 Upper Body Dressing(FIM): 6 Upper Body Dressing (QC): 6 Lower Body Dressing(FIM): 6 Lower Body Dressing (QC): 6 On/Off Footwear (QC): 6 Toileting(FIM): 6 Toileting Hygiene (QC): 6 Toilet/Commode Transfer(FIM): 6 Toilet/Commode Transfer (QC): 6 Shower Transfer(FIM): 5 Additional Goals: 1-Demonstrate ADL Tasks, 2-Verbalize Understanding, 3- ImproveStrength/Tamy 1=Demonstrate adherence to instructed precautions during ADL tasks. 2=Patient will verbalize/demonstrate understanding of assistive devices/ modifications for ADL. 3=Patient will improve strength/tolerance for activity to enable patient to perform ADL's. OT Education/Plan Problem List/Assessment Pt demonstrates decreased activity tolerance, strength, mobility, and ADL functioning. Pt to benefit from skilled OT intervention for ADL training, transfers, strengthening, and home safety education to increase functional independence and allow safe discharge home. Discharge Recommendations Plan/Recommendations: Continue POC Treatment Plan/Plan of Care Patient would benefit from OT for education, treatment and training to promote independence in ADL's, mobility, safety and/or upper extremity function for ADL' s. Plan of Care: ADL Retraining, Functional Mobility, Group Exercise/Act as Ind, UE Funct Exercise/Act Treatment Duration: Jul 09, 2018 Frequency: At least 5 of 7 days/Wk (IRF) Estimated Hrs Per Day: 1.5 hours per day Rehab Potential: Fair Time/GCodes Start Time: 14:05 Stop Time: 15:05 Total Time Billed (hr/min): 60 Billed Treatment Time 1 visit-ADL 4 (60 min) co-treat with PT for 60 min JENNIFER POOL Jun 18, 2018 15:22
--- NOTE | 2018-06-18 15:50 | NUR ---
RECRUITMENT AND OUTREACH ASSISTANT met with patient to complete initial assessment. Patient was alert and oriented and agreeable to assessment. Patient admitted to ARU from with diagnosis of critical illness myopathy. Patient reports several hospitalizations within the last 6 weeks. Prior to hospitalization patient resided with spouse, Jose in [place], [place]. The home is one level with a ramp at the back entrance. Patient reports newly prescribed continuous oxygen (2L) as of 3 weeks ago (supplied by [employer]). Patient also reports reports 2 recent fall. Prior to current hospitalization patient utilizes front-wheeled walker for all ambulation. Spouse Jose identified as primary contact at [phone]. Jose is unable to physically assist patient at home due to personal disability; however he is able to cook, assist with laundry, and drive. Secondary contact [place] [id number] 7. PCP identified as Dr. Carla Wilson at [facility], senior assistant manager as Dr. Jorge and oncologist as Dr. Haywood. Patient receives weekly blood transfusions (typically at a [facility] at [facility]) and monthly iron transfusions through [facility]. Following 20 month period of disability, patient was granted Medicare as of June 15, 2018, patient also reports [place] Medicaid application filed by hospital. She utilizes [facility] at [facility]. RECRUITMENT AND OUTREACH ASSISTANT reviewed typical rehabilitation length of stay and weekly team conferences with patient, she expressed no concerns at this time. RECRUITMENT AND OUTREACH ASSISTANT will follow for appropriate discharge needs
[2018-06-18] MEDS ORDERED: NON-FORMULARY MEDICATION 1 EA EA (Ondansetron HCl 8 MG) PO PRN (16:00)
[2018-06-18] MEDS ORDERED: ONDANSETRON 4 MG (ZOFRAN) ORAL DISSOLVE TAB PO PRN (16:00)
[2018-06-18] MEDS ORDERED: ALPRAZolam 0.25 MG (XANAX) TAB PO PRN (16:00)
[2018-06-18] MEDS ORDERED: NON-FORMULARY MEDICATION 1 EA EA (Diphenhydramine HCl (Benadryl) 25 MG) PO PRN (16:00)
[2018-06-18] MEDS ORDERED: INSULIN ASPART 4 UNIT SQ SCH (16:00)
[2018-06-18] MEDS ORDERED: ACETAMINOPHEN 500 MG TAB (TYLENOL) PO PRN (16:00)
[2018-06-18] MEDS ORDERED: guaiFENesin/CODEINE (ROBITUSSIN AC) 10ML UDC PO PRN (16:00)
[2018-06-18] MEDS ORDERED: NON-FORMULARY MEDICATION 1 EA EA (Nitroglycerin (Nitrostat) 0.4 MG) SL PRN (16:00)
[2018-06-18] MEDS ORDERED: DOCUSATE SODIUM 100 MG (COLACE) CAP PO PRN (16:00)
[2018-06-18] MEDS ORDERED: LOPERAMIDE 2 MG (IMODIUM) CAP PO PRN (16:00)
[2018-06-18] MEDS ORDERED: diphenhydrAMINE 25 MG TAB (BENADRYL) PO PRN ×2 (16:00→16:15)
[2018-06-18] MEDS ORDERED: inSUlin ASPART (NovoLOG) 1 UNIT/0.01 ML (CHARGE PER UNIT) SC SCH (16:15)
[2018-06-18] MEDS: ACETAMINOPHEN 325 MG TABLET PO PRN (16:58)
--- NOTE | 2018-06-18 17:03 | NUR ---
Dr. Field in to talk w pt as consulted.
--- NOTE | 2018-06-18 17:06 | NUR ---
Pt refused the scheduled 1600 Insulin, states, "they've had me on a Sliding Scale at , & they haven't needed to given my any because I haven't had an appetite." Pt also asked to only take 1 of the Tylenol, not the 2 for pain, states, "I don't like to take meds if I don't have to."
--- NOTE | 2018-06-18 19:32 | NUR ---
bedside report received from DENNIS MACKAY, assume care of pt
--- NOTE | 2018-06-18 20:04 | NUR ---
Notified Dr. Morrell of pt's refusal of scheduled Insulin 4 units w meals at suppertime, (see previous note), rec'd orders to hold this until she sees pt in AM. Notified assembler 1st shift RNGalnia.
[2018-06-18 21:00] VITALS: BP 97/62
[2018-06-18] MEDS ORDERED: NON-FORMULARY MEDICATION 1 EA EA (Sennosides/Docusate Sodium (Senna S Tablet) 1 TAB) PO SCH (21:00)
[2018-06-18] MEDS ORDERED: NON-FORMULARY MEDICATION 1 EA EA (Omeprazole 40 MG) PO SCH (21:00)
[2018-06-18] MEDS ORDERED: NON-FORMULARY MEDICATION 1 EA EA (Metoprolol Tartrate 100 MG) PO SCH (21:00)
--- NOTE | 2018-06-18 21:00 | NUR ---
assessments & interventions completed, see assessments & interventions, V/S [id number]%-97/62, pt wanting to what & recheck b/p at 2200 to take Lopressor 100mg
[2018-06-18] MEDS: PANTOPRAZOLE 40 MG (PROTONIX) TAB PO SCH (21:07)
[2018-06-18] MEDS: SENNA W/DOCUSATE (SENOKOT S) TABLET PO SCH (21:07)
--- NOTE | 2018-06-18 21:21 | History & Physical ---
History of Present Illness History of Present Illness Reason for visit/HPI CC: Critical illness myopathy HPI: This is a 62-year-old white female with a multitude of medical problems including transfusion dependent anemia managed by Dr. Field and hematology center, paroxysmal atrial fibrillation, CAD, hypertension, CHF, chronic kidney disease, previous bypass, hypothyroidism, and anxiety disorder who presents to the inpatient rehabilitation facility transferred from [facility] after transferred there due to critical illness and higher level of care for kidney failure on 06/01/18 and remained on a ventilator for 3 days and then worked on severe anasarca and volume overload. She was given aggressive diuresis which helped a great deal but she is still 20 pounds of water weight over so we will continue to diuresis her here with Lasix 80 mg daily along with potassium supplement. Cardiology and pulmonology and hematology have all been consulted for this patient. Patient reports bowel function has been normal and blood sugars have been running pretty low due to poor appetite and poor intake. She did require transfusion while up at [facility]. Her kidney function actually improved to within normal limits at the time of transfer and we will be working on getting her strong enough to return back to independent living at home. She is willing to put forth the effort for the requirements of 3 hours of physical therapies in order to improve enough to be discharged home. I reviewed medical chart, via [facility] medical chart, home meds, and all previous information in order to take care of this patient to the highest standards. Date of Admission Jun 18, 2018 at 13:15 Date Seen by a Provider: Jun 18, 2018 Time Seen by a Provider: 16:30 I consulted on this patient on 06/18/18 21:21 Attending Physician Sarah Garcia DO Admitting Physician Carla Wilson MD Consult Allergies and Home Medications Allergies Coded Allergies: Jthyack-Ohr-Ely Reductase Inhibitor (Verified Allergy, Intermediate, GI UPSET, N/V, 11/06/17) cefadroxil (Unverified Allergy, Mild, 01/01/17) Sulfa (Sulfonamide Antibiotics) (Verified Allergy, Unknown, 06/18/18) Home Medications Acetaminophen 325 Mg Tablet, 650 MG PO Q6H PRN for PAIN-MILD, (Reported) Aspirin 81 Mg Tablet.dr, 81 MG PO DAILY, (Reported) Cetirizine HCl 10 Mg Tablet, 10 MG PO DAILY, (Reported) Diltiazem HCl 180 Mg Capsule.er, 180 MG PO DAILY, (Reported) Diphenhydramine HCl 25 Mg Capsule, 25 MG PO Q6H PRN for ALLERGIES, (Reported) Folic Acid 1 Mg Tablet, 1 MG PO DAILY, (Reported) Furosemide 40 Mg Tablet, 40 MG PO DAILY, (Reported) Insulin Aspart 300 Units/3 Ml Solution, 4 UNITS SQ TIDAC, (Reported) Insulin NPH Human Isophane 100 Unit/1 Ml Vial, 14 UNIT SQ DAILY, (Reported) Levothyroxine Sodium 175 Mcg Tablet, 175 MCG PO DAILY, (Reported) Metoprolol Tartrate 100 Mg Tablet, 100 MG PO BID, (Reported) Nitroglycerin 0.4 Mg Tab.subl, 0.4 MG SL UD PRN for CHEST PAIN, (Reported) Omeprazole 40 Mg Capsule.dr, 40 MG PO BID, (Reported) Ondansetron HCl 8 Mg Tablet, 8 MG PO Q8H PRN for NAUSEA/VOMITING-1ST LINE, ( Reported) Potassium Chloride 20 Meq Tablet.er, 20 MEQ PO DAILY, (Reported) Sennosides/Docusate Sodium 1 Each Tablet, 1 TAB PO HS, (Reported) Tizanidine HCl 4 Mg Tablet, 4 MG PO TID PRN for MUSCLE SPASMS, (Reported) Tramadol HCl 50 Mg Tablet, 50 MG PO TID PRN for PAIN-MODERATE, (Reported) Patient Home Medication List Home Medication List Reviewed: Yes Past Zenabmd-Judxlz-Kbochr Hx Past Med/Social Hx: Reviewed Nursing Past Med/Soc Hx, Reviewed and Corrections made Patient Social History Employed/Student: unemployed Alcohol Use: Denies Use Recreational Drug Use: No Smoking Status: Former Smoker Former Smoker, Quit: May 20, 1980 Type Used: Cigarettes Physical Abuse Screen: No Sexual Abuse: No Recent Foreign Travel: No Contact w/other who traveled: No Recent Hopitalizations: Yes Recent Infectious Disease Expo: No Immunizations Up To Date Tetanus Booster (TDap): Unknown Pediatric: Yes Date of Pneumonia Vaccine: Jun 23, 2016 Date of Influenza Vaccine: May 18, 2018 Seasonal Allergies Seasonal Allergies: Yes Past Medical History Surgeries: Adenoidectomy, Cardiac, CABG, Coronary Stent, Open Heart Surgery, Orthopedic, Tonsillectomy, Tubal Ligation Currently Using CPAP: No Currently Using BIPAP: No Cardiac: Atrial Fibrillation, Chronic Edema/Swelling, Coronary Artery Disease, Heart Attack, High Cholesterol, Hypertension Reproductive: No Sexually Transmitted Disease: No HIV/AIDS: No Female Reproductive Disorders: Denies Menopausal Genitourinary: Renal Failure Gastrointestinal: Gastroesophageal Reflux, Gastrointestinal Bleed, Diverticulosis, Hemorrhoids, Polyps Musculoskeletal: Degenerate Disk Disease, Arthritis, Chronic Back Pain, Fractures Endocrine: Diabetes, Insulin dep Are Your Blood Sugars Over 250: No Loss of Vision: Denies Hearing Impairment: Denies Psychosocial: Anxiety Skin/Integumentary: Psoriasis History of Blood Disorders: Yes (acute anemia) Adverse Reaction to Blood Wright: Yes (Antibody JKA) Family History Arthritis G8 BROTHER Completed stroke 19 MOTHER FH: anemia 19 MOTHER FH: lupus G8 SISTER FH: throat cancer 19 FATHER Hypertension G8 SISTER Myocardial infarction 19 MOTHER Thyroid disease 19 MOTHER G8 SISTER Hypertension, Stroke, Other Conditions/Hx Review of Systems Constitutional: dizziness, malaise, weakness, weight loss EENTM: no symptoms reported Respiratory: dyspnea on exertion, short of breath Cardiovascular: edema Gastrointestinal: loss of appetite Genitourinary: no symptoms reported Musculoskeletal: joint pain, muscle stiffness, muscle cramps, muscle weakness Skin: no symptoms reported Psychiatric/Neurological: Depressed All Other Systems Reviewed Negative Unless Noted: Yes Physical Exam Vital Signs Vital Signs - First Documented 06/18/18 13:50 Temp 98.2 Pulse 87 Resp 20 B/P (MAP) 118/62 (80) Pulse Ox 93 O2 Delivery Nasal Cannula O2 Flow Rate 4.00 Capillary Refill : Height, Weight, BMI Height: 5'4.00" Weight: 262lbs. 0.0oz. 118.441706dr; 45.0 BMI Method:Stated General Appearance: No Apparent Distress, WD/WN, Chronically ill, Obese Eyes: Bilateral Eye Normal Inspection, Bilateral Eye PERRL, Bilateral Eye EOMI HEENT: PERRL/EOMI, Normal ENT Inspection, Pharynx Normal Neck: Full Range of Motion, Normal Inspection, Non Tender, Supple, Carotid Bruit Respiratory: Chest Non Tender, Lungs Clear, Normal Breath Sounds, No Accessory Muscle Use, No Respiratory Distress, Decreased Breath Sounds Cardiovascular: No Gallop, No JVD, No Murmur, Normal Peripheral Pulses, Irregularly Irregular Gastrointestinal: Normal Bowel Sounds, No Organomegaly, No Pulsatile Mass, Non Tender, Soft Back: Normal Inspection, No CVA Tenderness, No Vertebral Tenderness Extremity: Normal Capillary Refill, Normal Inspection, Normal Range of Motion, Non Tender, No Calf Tenderness, Pedal Edema Neurologic/Psychiatric: Alert, Oriented x3, No Motor/Sensory Deficits, Normal Mood/Affect, Other (Muscle strength subtle deficit 4 out of 5 with all extremities we'll work towards resolution of that new deficits since critical illness) Skin: Normal Color, Warm/Dry Lymphatic: No Adenopathy Assessment/Plan Assessment and Plan Assessment: Critical illness myopathy with severe debilitating requiring inpatient rehabilitation prior to going home to return to independent living Hypoxia requiring 2 L of oxygen supplementation 05/01 Paroxysmal atrial fibrillation Transfusion dependent anemia managed by Dr. Haywood Type II diabetes mellitus Chronic GI bleeding CAD Previous bypass Hyperlipidemia Hypothyroidism History of hepatitis B COPD Thrombocytopenia Chronic renal insufficiency Hypertension Long's esophagus Chronic diastolic heart failure Morbid obesity Plan: Continue diuresis of 80 mg Lasix by mouth daily Evaluate cardiac meds per Dr. Sosa Appreciate Dr. 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
--- NOTE | 2018-06-18 22:00 | NUR ---
b/p 104/67 agreed to take lopressor 50mg stating that is what they had me on at [facility]
[2018-06-18 22:08] VITALS: BP 104/67
[2018-06-18] MEDS: meTOprolol TARTRATE 50 MG (LOPRESSOR) TAB PO SCH (22:09)
[2018-06-19 05:01] VITALS: BP 109/71
[2018-06-19 05:18] VITALS: BP_SYST 101
[2018-06-19] MEDS: LEVOTHYROXINE 25 MCG (LEVOTHROID) TAB PO SCH (06:48)
[2018-06-19] MEDS: KCL 20 MEQ TAB (K-DUR) PO SCH (06:48)
[2018-06-19] MEDS: PANTOPRAZOLE 40 MG (PROTONIX) TAB PO SCH ×2 (06:48→21:06)
[2018-06-19] MEDS: LEVOTHYROXINE 150 MCG (LEVOTHROID) TAB PO SCH (06:48)
[2018-06-19 07:18] LABS: BASOPHILS % (AUTO) 1 % (0-10); EOSINOPHILS # (AUTO) 0.5 10^3/uL (0.0-0.3); EOSINOPHILS % (AUTO) 9 % (0-10); HEMATOCRIT 30 % (35-52); HEMOGLOBIN 9.2 G/DL (11.5-16.0); LYMPHOCYTES % (AUTO) 20 % (12-44); MEAN CORPUSCULAR HEMOGLOBIN 31 PG (25-34); MEAN CORPUSCULAR HGB CONC 31 G/DL (32-36); MEAN CORPUSCULAR VOLUME 101 FL (80-99); MEAN PLATELET VOLUME 10.2 FL (7.4-10.4); MONOCYTES # (AUTO) 0.7 X 10^3 (0.0-1.0); MONOCYTES % (AUTO) 13 % (0-12); NEUTROPHILS # (AUTO) 3.1 X 10^3 (1.8-7.8); NEUTROPHILS % (AUTO) 58 % (42-75); PLATELET COUNT 172 10^3/uL (130-400); RED BLOOD COUNT 2.96 10^6/uL (4.35-5.85); RED CELL DISTRIBUTION WIDTH 15.6 % (10.0-14.5); WHITE BLOOD COUNT 5.3 10^3/uL (4.3-11.0)
--- NOTE | 2018-06-19 07:31 | NUR ---
bedside report given to BAILEE MACKAY
[2018-06-19 07:45] LABS: ALBUMIN 3.1 GM/DL (3.2-4.5); BILIRUBIN,TOTAL 0.7 MG/DL (0.1-1.0); CALCIUM 9.3 MG/DL (8.5-10.1); CREATININE SERUM 1.26 MG/DL (0.60-1.30); POTASSIUM 3.7 MMOL/L (3.6-5.0)
[2018-06-19] MEDS: ASPIRIN E.C. 81 MG (ECOTRIN) TAB PO SCH (08:24)
[2018-06-19] MEDS: LORATADINE (CLARITIN) 10 MG TAB PO SCH (08:24)
[2018-06-19] MEDS: FOLIC ACID 1 MG TAB PO SCH (08:24)
[2018-06-19 08:30] VITALS: BP 121/75
[2018-06-19] MEDS ORDERED: NON-FORMULARY MEDICATION 1 EA EA (Potassium Chloride 20 MEQ) PO SCH (09:00)
[2018-06-19] MEDS ORDERED: NON-FORMULARY MEDICATION 1 EA EA (Levothyroxine Sodium 175 MCG) PO SCH (09:00)
[2018-06-19] MEDS ORDERED: FUROSEMIDE 40 MG (LASIX) TAB PO SCH (09:00)
[2018-06-19] MEDS ORDERED: NON-FORMULARY MEDICATION 1 EA EA (Cetirizine HCl (Zyrtec) 10 MG) PO SCH (09:00)
--- NOTE | 2018-06-19 09:34 | Physical Therapy Daily Note ---
PT Daily Note-Current Subjective Agreeable to PT. Requests for the chair to follow behind as she says her knees buckle at times. Reports she has noticed an improvement over the past 3 days. Mental Status Patient Orientation: Person, Place, Time, Situation Transfers Therapy Code Descriptions/Definitions Functional [place] Measure: 0=Not Assessed/NA 4=Minimal Assistance 1=Total Assistance 5=Supervision or Setup 2=Maximal Assistance 6=Modified [place] 3=Moderate Assistance 7=Complete [place] Therapy Quality Codes: 6 Independent with activity with or without an assistive device 5 Patient requires set up or clean up by helper. Patient completes activity by themselves 4 Supervision or touching assist (CGA). [place] provide cues , steadying assist 3 The helper provides less than half the effort to complete the activity 2 The helper provides more than half the effort to complete the activity 1 Dependent. The helper does all the effort to complete an activity 7 Patient refused to complete or attempt activity 9 The patient did not perform the activity before the current illness or injury 88 Not attempted due to Medical conditions or safety concerns Transfers (B, C, W/C) (FIM): 4 Supine to/from Sit: 4 Sit to/from Stand: 4 CGA with transfers with skilled cues for sequencing and safety. Gait Training Does the Patient Walk?: Yes Gait (FIM): 2 Distance (FIM): 1=up to 49 ft Distance: 30 ft x 3; 15 ft x 2 Gait Assistive Device: FWW Close CGA with gait. Pt had no LOB or buckling episodes this visit. O2 sats greater than 92% throughout treatment with oxygen at 2l/min. Treatments Pt on toilet post treatment with call light in reach Assessment Current Status: Good Progress Increased activity. PT Short Term Goals Short Term Goals Time Frame: Jun 25, 2018 Transfers (B,C,W/C) (FIM): 4 Gait (FIM): 1 Gait Distance Comment: 25' Gait Level of Assist: 4 Gait Assistive Device: FWW PT Snf Goals Heavy Equipment Sales Associate Goals PT Heavy Equipment Sales Associate Goals Time Frame: Jul 09, 2018 Transfers (B,C,W/C) (FIM): 5 Sit to Lying (QC): 4 Lying-Sitting on Side/Bed(QC): 4 Sit to Stand (QC): 4 Rollin Roll Left to Right (QC): 4 Chair/Fai-on-Rooff Xfer(QC): 4 Car Transfer (QC): 4 Gait (FIM): 2 Distance: 50' Walk 10 feet (QC): 4 Walk 10ft-Uneven Surface(QC): 4 Walk 50ft with 2 Turns (QC): 4 Gait Level of Assist: 5 Gait Assistive Device: FWW Stairs (FIM): 1 # of Steps: 1 1 Step (curb) (QC): 4 Stairs Level Of Assist: 4 PT Plan Problem List Problem List: Activity Tolerance, Functional Strength, Safety, Balance, Gait, Transfer, Bed Mobility Treatment/Plan Treatment Plan: Continue Plan of Care Treatment Plan: Bed Mobility, Concurrent Therapy, Education, Functional Activity Tamy, Functional Strength, Group Therapy, Gait, Safety, Therapeutic Exercise, Transfers Treatment Duration: Jul 09, 2018 Frequency: At least 5 of 7 days/Wk (IRF) Estimated Hrs Per Day: 1.5 hours per day Patient and/or Family Agrees t: Yes Safety Risks/Education Patient Education: Transfer Techniques, Safety Issues Teaching Recipient: Patient Teaching Methods: Discussion Response to Teaching: Reinforcement Needed Time/GCodes Time In: 825 Time Out: 900 Total Billed Treatment Time: 35 Total Billed Treatment vsiit GT 35 JENNIFER SMITH PT Jun 19, 2018 09:34
--- NOTE | 2018-06-19 10:00 | NUR ---
DR. GARCIA HERE TO SEE PATIENT AND INFORMED OF LOPRESSOR AND LASIX DOSAGE CONCERNS AND PT. REQUEST TO START ON SSIP. ALSO ASKED ABOUT DVT PROPHYLAXIS. STATES NO MEDS NEEDED AT THIS TIME, BUT TO WEAR SCD'S.
[2018-06-19] MEDS: inSUlin NPH (NovoLIN N) 1 UNIT/0.01 ML (CHARGE PER UNIT) SQ SCH (10:13)
[2018-06-19] MEDS ORDERED: FUROSEMIDE 40 MG (LASIX) TAB PO NR (10:15)
[2018-06-19] MEDS: meTOprolol TARTRATE 50 MG (LOPRESSOR) TAB PO SCH ×3 (10:24→21:06)
--- NOTE | 2018-06-19 10:29 | PM&R Post Admission Assessment ---
Post Admission Physician Asses Date seen by provider: Jun 19, 2018 Time seen by provider: 10:00 Admisison Dx: (1) Myopathy (2) 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 (3) Atrial fibrillation Status: Chronic (4) Hypothyroidism Status: Chronic (5) Coronary artery disease Status: Chronic (6) Hypertension Status: Chronic (7) GI bleeding Status: Chronic (8) Transfusion-dependent anemia Status: Chronic (9) Type 2 diabetes mellitus with hyperglycemia Status: Chronic (10) Oxygen dependent Status: Chronic (11) Loss of weight Status: Acute (12) Hypoxia Status: Chronic (13) CKD (chronic kidney disease) Status: Chronic (14) Portal hypertension Status: Chronic The preadmission screen agrees with the post admission assessment that the patient is a good candidate for inpatient rehabilitation. The patient will have a comprehensive program of inpatient rehabilitation with a goal of maximizing level of functional independence prior to discharge home with [family]. The patient will have PT/OT ninety minutes per day, each discipline, five days a week for gait, strengthening, conditioning, balance, ADLs, any patient/family/caregiver training as necessary. Speech therapy to do cognitive assessment and treat as indicated. Rehabilitation nursing to assist with bowel, bladder, skin, wound care, medication administration, pain management. Vat House Laborer to assist with discharge planning, community reentry. SCD's for DVT prophylaxis. She appears to be well motivated to participate in three hours of therapy a day. She should be able to tolerate three hours of therapy a day from a medical standpoint. She should benefit from the three hours of therapy a day. She has a reasonable discharge plan, reasonable discharge rehabilitation goals and a supportive family. She has various comorbidities that need to be closely monitored with medications and treatments adjusted on a daily basis as needed. These include: see list above Barriers to discharge for this patient who had been independent prior to this are for her to be modified independent to supervision for ADLs and mobility skills prior to discharge home with [family], so as to lessen the burden of the caregivers. Risks for this patient include: 1. Fall 2. Fracture 3. DVT 4. Pulmonary embolism 5. Wound infection 6. Skin breakdown 7. Contractures 8. Poorly controlled pain 9. Urinary retention 10. UTI 11. Respiratory infection 12. Aspiration Estimated Length of Stay: [14]days Prognosis: Rehab prognosis appears good for goal of discharge home with [family ] modified independent to supervision for ADLs and mobility skills. Date Identified: Jun 18, 2018 Time Identified: 2100 Action Plan to Resolve CSMI: Implement therapies per protocol Requirement of 3 hours of therapies will be able to be obtained by the patient General: Alert, Oriented X3, Cooperative, No Acute Distress HEENT: Atraumatic, PERRLA, EOMI, Mucous Memb Moist/[place] Neck: Supple, No JVD, No Thyromegaly, +2 Carotid Pulse No Bruit, No LAD Lungs: Clear to Auscultation, Normal Air Movement Heart: Regular Rate, Normal S1, Normal S2 Abdomen: Normal Bowel Sounds, Soft, No Tenderness, No Hepatosplenomegaly, No Masses Extremities: No Clubbing, No Cyanosis, Other (edema noted lower legs) Skin: No Rashes, No Breakdown, No Significant Lesion Neuro: Normal Speech, Normal Tone, Sensation Intact, Cranial Nerves 3-12 NL, Reflexes 2+, Other (global weakness of all extremities 4/5) Psych/Mental Status: Mental Status NL, Mood NL History of Present Illness: HPI/Chief Complaint Patient doing very well today Blood sugar was low last night so held insulin Willing to do a NovoLog sliding scale Denies any pain Lower extremity edema will require additional diuresis Appreciate cardiology, hematology, pulmonology consultation Maintained on 2 L of oxygen Bowels are moving Blood pressure stable Has no other issues Family just came to visit when I was completing my exam Source: patient, old records Exam Limitations: no limitations Date Seen 06/19/18 Time Seen by a Provider: 10:00 Attending Physician Sarah Morrell DO PCP Carla Wilson MD Referring Physician Date of Admission Jun 18, 2018 at 13:15 SARAH MORRELL DO Jun 19, 2018 10:29
--- NOTE | 2018-06-19 10:29 | PM&R Progress Note ---
Objective Exam Vital Signs Vital Signs Date Time Temp Pulse Resp B/P (MAP) Pulse Ox O2 Delivery O2 Flow Rate FiO2 06/19/18 08:30 124 121/75 (90) 06/19/18 07:44 Nasal Cannula 2.00 06/19/18 05:01 98.1 22 92 Capillary Refill : Results/Procedures Lab Laboratory Tests 06/19/18 07:11 Patient resulted labs reviewed. Clinical Quality Measures DVT/VTE Risk/Contraindication: Risk Factor Score Per Nursin RFS Level Per Nursing on Admit: 4+=Very High MICHELLE GARCIA DO Jun 19, 2018 10:29
--- NOTE | 2018-06-19 11:30 | NUR ---
DR. DODSON HERE TO SEE PATIENT. EKG DONE. STARTED ON TELEMETRY. EXTRA LASIX, DIG AND LOPRESSOR GIVEN.
--- NOTE | 2018-06-19 11:44 | Consultation-Cardiology ---
HPI-Cardiology Cardiology Consultation Date of Consultation 06/19/18 Date of Admission Time Seen by Provider: 11:39 Indication: tachycardia HPI 62 years old lady with extensive history, was in [place] on May 30, 2018 for generalized weakness fatigue and syncope, was diagnosed with pneumonia and UTI started on antibiotic, progressed into septic shock and transferred to . Had a long hospital stay and transferred yesterday back to [place] for acute rehabilitation. Complains of generalized weakness and fatigue peripheral edema , no chest pain, no palpitation, noted to be tachycardic. No syncope or near syncopal episodes. No claudications. Past history will be discussed below Home Medications & Allergies Allergies: Coded Allergies: Xfynokt-Hlu-Afq Reductase Inhibitor (Verified Allergy, Intermediate, GI UPSET, N/V, 11/06/17) cefadroxil (Unverified Allergy, Mild, 01/01/17) Sulfa (Sulfonamide Antibiotics) (Verified Allergy, Unknown, 06/18/18) Home Medication List Reviewed: Yes NNP-Pbusli-Nraeuc Hx Patient Social History Marital Status: single Employed/Student: retired Alcohol Use: Denies Use Recreational Drug Use: No Smoking Status: Former Smoker Type Used: Cigarettes Recent Foreign Travel: No Recent Infectious Disease Expo: No Recent Hopitalizations: Yes Physical Abuse Screen: No Sexual Abuse: No Immunizations Up To Date Tetanus Booster (TDap): Unknown Date of Pneumonia Vaccine: Jun 23, 2016 Date of Influenza Vaccine: May 18, 2018 Past Medical History past medical history as discussed below Family Medical History Significant Family History: Hypertension, Stroke, Other Conditions/Hx Family History: Arthritis G8 BROTHER Completed stroke 19 MOTHER FH: anemia 19 MOTHER FH: lupus G8 SISTER FH: throat cancer 19 FATHER Hypertension G8 SISTER Myocardial infarction 19 MOTHER Thyroid disease 19 MOTHER G8 SISTER Review of Systems Constitutional: see HPI, malaise EENTM: see HPI, no symptoms reported Respiratory: see HPI; No cough; dyspnea on exertion; No hemoptysis, No orthopnea, No phlegm, No short of breath, No stridor, No wheezing, No other Cardiovascular: see HPI; No chest pain; edema; No Hx of Intervention; palpitations; No syncope, No vascular heart diseas, No other Gastrointestinal: no symptoms reported, see HPI Genitourinary: no symptoms reported, see HPI Musculoskeletal: see HPI, joint pain, muscle weakness Skin: see HPI Psychiatric/Neurological: No Symptoms Reported, See HPI Reviewed Test Results Reviewed Test Results Lab Laboratory Tests Test 06/18/18 16:54 06/18/18 20:30 06/19/18 05:15 06/19/18 07:11 Range/Units Glucometer 114 H 140 H 103 70-110 MG/DL White Blood Count 5.3 4.3-11.0 10^3/uL Red Blood Count 2.96 L 4.35-5.85 10^6/uL Hemoglobin 9.2 L 11.5-16.0 G/DL Hematocrit 30 L 35-52 % Mean Corpuscular Volume 101 H 80-99 FL Mean Corpuscular Hemoglobin 31 25-34 PG Mean Corpuscular Hemoglobin Concent 31 L 32-36 G/DL Red Cell Distribution Width 15.6 H 10.0-14.5 % Platelet Count 172 130-400 10^3/uL Mean Platelet Volume 10.2 7.4-10.4 FL Neutrophils (%) (Auto) 58 42-75 % Lymphocytes (%) (Auto) 20 12-44 % Monocytes (%) (Auto) 13 H 0-12 % Eosinophils (%) (Auto) 9 0-10 % Basophils (%) (Auto) 1 0-10 % Neutrophils # (Auto) 3.1 1.8-7.8 X 10^3 Lymphocytes # (Auto) 1.0 1.0-4.0 X 10^3 Monocytes # (Auto) 0.7 0.0-1.0 X 10^3 Eosinophils # (Auto) 0.5 H 0.0-0.3 10^3/uL Basophils # (Auto) 0.0 0.0-0.1 10^3/uL Sodium Level 141 135-145 MMOL/L Potassium Level 3.7 3.6-5.0 MMOL/L Chloride Level 93 L 98-107 MMOL/L Carbon Dioxide Level 35 H 21-32 MMOL/L Anion Gap 13 5-14 MMOL/L Blood Urea Nitrogen 16 7-18 MG/DL Creatinine 1.26 0.60-1.30 MG/DL Estimat Glomerular Filtration Rate 43 BUN/Creatinine Ratio 13 Glucose Level 110 H 70-105 MG/DL Calcium Level 9.3 8.5-10.1 MG/DL Corrected Calcium 10.0 8.5-10.1 MG/DL Total Bilirubin 0.7 0.1-1.0 MG/DL Aspartate Amino Transf (AST/SGOT) 33 5-34 U/L Alanine Aminotransferase (ALT/SGPT) 13 0-55 U/L Alkaline Phosphatase 65 40-136 U/L Total Protein 7.0 6.4-8.2 GM/DL Albumin 3.1 L 3.2-4.5 GM/DL Physical Exam Vital Signs Vital Signs - First Documented 06/18/18 13:50 Temp 98.2 Pulse 87 Resp 20 B/P (MAP) 118/62 (80) Pulse Ox 93 O2 Delivery Nasal Cannula O2 Flow Rate 4.00 Capillary Refill : Height, Weight, BMI Height: 5'4.00" Weight: 264lbs. 9.0oz. 120.854760au; 45.0 BMI Method:Stated General Appearance: WD/WN, Mild Distress Eyes: Bilateral Eye Normal Inspection, Bilateral Eye PERRL, Bilateral Eye EOMI HEENT: PERRL/EOMI, TMs Normal, Normal ENT Inspection, Pharynx Normal Neck: Full Range of Motion, Normal Inspection, Non Tender, Supple, Carotid Bruit Respiratory: Chest Non Tender, Lungs Clear, Normal Breath Sounds, No Accessory Muscle Use, No Respiratory Distress Cardiovascular: No Edema, No Gallop, No JVD, No Murmur, Normal Peripheral Pulses, Tachycardia Gastrointestinal: Normal Bowel Sounds, No Organomegaly, No Pulsatile Mass, Non Tender, Soft Back: Normal Inspection, No CVA Tenderness, No Vertebral Tenderness Extremity: Normal Capillary Refill, Normal Inspection, Normal Range of Motion, Non Tender, No Calf Tenderness, Pedal Edema Neurologic/Psychiatric: Alert, Oriented x3, No Motor/Sensory Deficits, Normal Mood/Affect Skin: Normal Color, Warm/Dry Lymphatic: No Adenopathy A/P-Cardiology Admission Diagnosis sinus tachycardia Hypertension Coronary artery disease Chronic renal insufficiency Assessment/Plan Sinus tachycardia, multifactorial, history of paroxysmal atrial fibrillation, I will restart metoprolol 100 mg twice a day and monitor her tolerance and response, unable to tolerate amiodarone due to hepatic cirrhosis, I'll start low -dose digoxin and evaluate tolerance and response Coronary artery disease, history of CABG 4 done in February 2018. Clinically stable. Continue to monitor History of paroxysmal atrial fibrillation, unable to tolerate oral anticoagulation due to recurrent GI bleed. Congestive heart failure, chronic left ventricular diastolic dysfunction, secondary to hypertension. Continue to monitor Hypertension, controlled on current medication, continue to monitor History of hepatic cirrhosis, unknown etiology. Scheduled to see a bobbin winder as an outpatient History of esophageal paresis and gastritis. Followed and managed by primary care physician next History of GAVE History of ascites secondary to hepatic cirrhosis neck Status post pneumonia and UTI resulted in septic shock and encephalopathy Status post respiratory failure. Obesity, BMI 45 Clinical Quality Measures DVT/VTE Risk/Contraindication: Risk Factor Score Per Nursin RFS Level Per Nursing on Admit: 4+=Very High AYSE DODSON MD Jun 19, 2018 11:43
[2018-06-19] MEDS ORDERED: DIGOXIN 0.125 MG (LANOXIN) TAB PO NR (11:45)
[2018-06-19] MEDS: inSUlin ASPART (NovoLOG) 1 UNIT/0.01 ML (CHARGE PER UNIT) SC SCH ×3 (12:00→21:07)
[2018-06-19] MEDS: CALCIUM CARBONATE 500 MG (TUMS) TAB.CHEW PO PRN (12:07)
--- NOTE | 2018-06-19 15:37 | Pulmonary Consultation ---
History of Present Illness History of Present Illness Date of Consultation 06/19/18 15:30 Time Seen by Provider: 15:31 Date of Admission Reason for Visit: tachycardia History of Present Illness 62[facility]/OT (rehab). Pt was transferred to from this hospital for higher level of care and renal failure on 06/01. PT was on the ventilator for 3 days and was severely volume overload. I am consulted for pulmonary management. Allergies and Home Medications Allergies Coded Allergies: Ggahljm-Zqt-Xik Reductase Inhibitor (Verified Allergy, Intermediate, GI UPSET, N/V, 11/06/17) cefadroxil (Unverified Allergy, Mild, 01/01/17) Sulfa (Sulfonamide Antibiotics) (Verified Allergy, Unknown, 06/18/18) Home Medications Acetaminophen 325 Mg Tablet, 650 MG PO Q6H PRN for PAIN-MILD, (Reported) Aspirin 81 Mg Tablet.dr, 81 MG PO DAILY, (Reported) Cetirizine HCl 10 Mg Tablet, 10 MG PO DAILY, (Reported) Diltiazem HCl 180 Mg Capsule.er, 180 MG PO DAILY, (Reported) Diphenhydramine HCl 25 Mg Capsule, 25 MG PO Q6H PRN for ALLERGIES, (Reported) Folic Acid 1 Mg Tablet, 1 MG PO DAILY, (Reported) Furosemide 40 Mg Tablet, 40 MG PO DAILY, (Reported) Insulin Aspart 300 Units/3 Ml Solution, 4 UNITS SQ TIDAC, (Reported) Insulin NPH Human Isophane 100 Unit/1 Ml Vial, 14 UNIT SQ DAILY, (Reported) Levothyroxine Sodium 175 Mcg Tablet, 175 MCG PO DAILY, (Reported) Metoprolol Tartrate 100 Mg Tablet, 100 MG PO BID, (Reported) Nitroglycerin 0.4 Mg Tab.subl, 0.4 MG SL UD PRN for CHEST PAIN, (Reported) Omeprazole 40 Mg Capsule.dr, 40 MG PO BID, (Reported) Ondansetron HCl 8 Mg Tablet, 8 MG PO Q8H PRN for NAUSEA/VOMITING-1ST LINE, ( Reported) Potassium Chloride 20 Meq Tablet.er, 20 MEQ PO DAILY, (Reported) Sennosides/Docusate Sodium 1 Each Tablet, 1 TAB PO HS, (Reported) Tizanidine HCl 4 Mg Tablet, 4 MG PO TID PRN for MUSCLE SPASMS, (Reported) Tramadol HCl 50 Mg Tablet, 50 MG PO TID PRN for PAIN-MODERATE, (Reported) Past Hprhfar-Hgbiml-Sgtzeb Hx Past Med/Social Hx: Reviewed Nursing Past Med/Soc Hx, Reviewed and Corrections made Patient Social History Alcohol Use: Denies Use Recreational Drug Use: No Smoking Status: Former Smoker Type Used: Cigarettes Former Smoker, Quit: May 20, 1980 Recent Foreign Travel: No Contact w/Someone Who Travel: No Recent Infectious Disease Expo: No Recent Hopitalizations: Yes Immunizations Up To Date Tetanus Booster (TDap): Unknown PED Vaccines UTD: Yes Date of Pneumonia Vaccine: Jun 23, 2016 Date of Influenza Vaccine: May 18, 2018 Seasonal Allergies Seasonal Allergies: Yes Past Medical History Surgeries: Yes Adenoidectomy, Cardiac, CABG, Coronary Stent, Open Heart Surgery, Orthopedic, Tonsillectomy, Tubal Ligation Respiratory: Yes (LEFT PLEURAL EFFUSION) Sleep Apnea Currently Using CPAP: No Currently Using BIPAP: No Cardiac: Yes (CHF, STENT X1; CABG 02/16/2018 x 4 @ [facility]) Atrial Fibrillation, Chronic Edema/Swelling, Coronary Artery Disease, Heart Attack, High Cholesterol, Hypertension Neurological: Yes : No Reproductive Disorders: No Female Reproductive Disorders: Denies 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: Menopausal Sexually Transmitted Disease: No HIV/AIDS: No Genitourinary: Yes Renal Failure Gastrointestinal: Yes Gastroesophageal Reflux, Gastrointestinal Bleed, Diverticulosis, Hemorrhoids, Polyps Musculoskeletal: Yes (POOR AMBULATION--USES WALKER SINCE CABG) Degenerate Disk Disease, Arthritis, Chronic Back Pain, Fractures Endocrine: Yes Diabetes, Insulin dep Are Your Blood Sugars Over 250: No HEENT: No Loss of Vision: Denies Hearing Impairment: Denies Cancer: No Psychosocial: No Anxiety Integumentary: Yes Psoriasis Blood Disorders: Yes (acute anemia) Adverse Reaction/Blood Tranf: Yes (Antibody JKA) Family Medical History Arthritis G8 BROTHER Completed stroke 19 MOTHER FH: anemia 19 MOTHER FH: lupus G8 SISTER FH: throat cancer 19 FATHER Hypertension G8 SISTER Myocardial infarction 19 MOTHER Thyroid disease 19 MOTHER G8 SISTER Hypertension, Stroke, Other Conditions/Hx Review of Systems Time Seen by Provider: 07:51 Sepsis Event Evaluation Height, Weight, BMI Height: 5'4.00" Weight: 264lbs. 9.0oz. 120.592849rd; 45.0 BMI Method:Stated Exam Exam Vital Signs Date Time Temp Pulse Resp B/P (MAP) Pulse Ox O2 Delivery O2 Flow Rate FiO2 06/19/18 09:00 Nasal Cannula 2.00 06/19/18 08:30 124 121/75 (90) 06/19/18 07:44 Nasal Cannula 2.00 06/19/18 05:18 101/ 06/19/18 05:01 98.1 125 22 109/71 (84) 92 Nasal Cannula 2.00 06/18/18 22:08 91 104/67 (79) 06/18/18 21:15 Nasal Cannula 4.00 06/18/18 21:10 Nasal Cannula 4.00 06/18/18 21:00 86 18 97/62 (74) 95 Nasal Cannula 2.00 06/18/18 21:00 2 Nasal Cannula 4.00 06/18/18 17:15 Nasal Cannula 2.00 06/18/18 16:30 90 20 97 Nasal Cannula 2.00 I & O 06/19/18 06:59 Intake Total 200 ml Balance 200 ml Height & Weight Height: 5'4.00" Weight: 264lbs. 9.0oz. 120.424752kh; 45.0 BMI Method:Stated General Appearance: No Apparent Distress, WD/WN, Chronically ill, Obese HEENT: PERRL/EOMI, Normal ENT Inspection, Pharynx Normal Neck: Full Range of Motion, Normal Inspection, Non Tender, Supple, Carotid Bruit Respiratory: Chest Non Tender, Lungs Clear, Normal Breath Sounds, No Accessory Muscle Use, No Respiratory Distress, Decreased Breath Sounds Cardiovascular: No Gallop, No JVD, No Murmur, Normal Peripheral Pulses, Irregularly Irregular Extremity: Normal Capillary Refill, Normal Inspection, Normal Range of Motion, Non Tender, No Calf Tenderness, Pedal Edema Neurologic/Psychiatric: Alert, Oriented x3, No Motor/Sensory Deficits, Normal Mood/Affect, Other (Muscle strength subtle deficit 4 out of 5 with all extremities we'll work towards resolution of that new deficits since critical illness) Skin: Normal Color, Warm/Dry Lymphatic: No Adenopathy Results Lab Laboratory Tests 06/19/18 07:11 Assessment/Plan Assessment/Plan Debility/myopathy secondary to extended hospital stay -Rehab Chronic respiratory failure including hypoxia -Oxygen - currently 2 liters -out patient PFT -Check PA/Lat CXR today Gastric antral vascular ectasia -Dx at Anemia -Monitor Afib- chronic CAD -Cardiology following BRISEIDA IBRAHIM DO Jun 19, 2018 15:37
--- NOTE | 2018-06-19 16:00 | NUR ---
DR. IBRAHIM HERE TO SEE PATIENT. CXR ORDERED. HAS HAD FAMILY VISITING.
[2018-06-19 17:09] VITALS: BP 128/83
--- NOTE | 2018-06-19 19:00 | NUR ---
DOWNSTAIRS FOR CXR. TIMBER CUTTER REPORTED TELE HAS SHOWN ST WITH RATE STAYING AROUND 100 THIS AFTERNOON. GAS PAINS TODAY AND HAD TUMS. EXPELLED BM X 2 TODAY.
--- NOTE | 2018-06-19 19:16 | Diagnostic Imaging Report ---
PATIENT HISTORY: Hypoxia, quadruple bypass. TECHNIQUE: Two views of the chest. COMPARISON: 06/01/2018. FINDINGS: The cardiac silhouette is mildly large. There is central vascular congestion and mild interstitial edema. There is a moderate left pleural effusion with associated airspace opacities. Sternotomy wires and post CABG changes are noted. There is no pneumothorax. IMPRESSION: 1. Cardiomegaly with central interstitial edema. 2. Moderate left pleural effusion. Dictated by: Dictated on workstation # [id number]
[2018-06-19] MEDS: SENNA W/DOCUSATE (SENOKOT S) TABLET PO SCH (21:06)
[2018-06-20 05:33] VITALS: BP 95/62
[2018-06-20] MEDS: inSUlin ASPART (NovoLOG) 1 UNIT/0.01 ML (CHARGE PER UNIT) SC SCH ×4 (05:34→21:49)
[2018-06-20] MEDS: LEVOTHYROXINE 25 MCG (LEVOTHROID) TAB PO SCH (06:24)
[2018-06-20] MEDS: KCL 20 MEQ TAB (K-DUR) PO SCH (06:24)
[2018-06-20] MEDS: PANTOPRAZOLE 40 MG (PROTONIX) TAB PO SCH ×2 (06:24→21:48)
[2018-06-20] MEDS: LEVOTHYROXINE 150 MCG (LEVOTHROID) TAB PO SCH (06:24)
[2018-06-20 08:20] VITALS: BP 100/63
[2018-06-20] MEDS: FUROSEMIDE 40 MG (LASIX) TAB PO SCH (08:41)
[2018-06-20] MEDS: DIGOXIN 0.125 MG (LANOXIN) TAB PO SCH (08:41)
[2018-06-20] MEDS: FOLIC ACID 1 MG TAB PO SCH (08:41)
[2018-06-20] MEDS: ASPIRIN E.C. 81 MG (ECOTRIN) TAB PO SCH (08:41)
[2018-06-20] MEDS: LORATADINE (CLARITIN) 10 MG TAB PO SCH (08:41)
--- NOTE | 2018-06-20 10:16 | Cardiology Progress Note ---
Subjective Date Seen by Provider: Jun 20, 2018 Time Seen by Provider: 10:15 Subjective/Events-last exam Patient is laying down in bed, complained of fatigue and loss of energy. No chest pain. Review of Systems General: No Chills, No Night Sweats, No Fatigue, No Malaise, No Appetite, No Other HEENT: No Head Aches, No Visual Changes, No Eye Pain, No Ear Pain, No Dysphasia , No Sinus Congestion, No Post Nasal Drip, No Sore Throat, No Other Pulmonary: No Dyspnea, No Cough, No Pleuritic Chest Pain, No Other Cardiovascular: No: Chest Pain, Palpitations, Orthopnea, Paroxysmal Noc. Dyspnea, Edema, Lt Headedness, Other Objective-Cardiology Exam Last Set of Vital Signs Vital Signs 06/20/18 06/20/18 05:33 07:00 Temp 98.5 Pulse 82 Resp 16 B/P (MAP) 95/62 (73) Pulse Ox 97 O2 Delivery Nasal Cannula O2 Flow Rate 2.00 Capillary Refill : I&O Intake and Output 06/20/18 00:00 Intake Total 920 ml Output Total 400 ml Balance 520 ml Intake Oral 920 ml Output Urine Total 400 ml # Voids 5 # Bowel Movements 2 General: Alert, Oriented X3, Cooperative, No Acute Distress HEENT: Atraumatic, PERRLA, EOMI, Mucous Memb Moist/[place] Neck: Supple, No JVD, No Thyromegaly, +2 Carotid Pulse No Bruit, No LAD Lungs: Clear to Auscultation, Normal Air Movement Heart: Regular Rate, Normal S1, Normal S2 Abdomen: Normal Bowel Sounds, Soft, No Tenderness, No Hepatosplenomegaly, No Masses Extremities: No Clubbing, No Cyanosis, Other (edema noted lower legs) Skin: No Rashes, No Breakdown, No Significant Lesion Neuro: Normal Speech, Normal Tone, Sensation Intact, Cranial Nerves 3-12 NL, Reflexes 2+, Other (global weakness of all extremities 4/5) Psych/Mental Status: Mental Status NL, Mood NL Results Lab A/P-Cardiology Admission Diagnosis sinus tachycardia Hypertension Coronary artery disease Chronic renal insufficiency Assessment/Plan Sinus tachycardia, multifactorial, history of paroxysmal atrial fibrillation, borderline hypotensive, I will decrease metoprolol to 50 mg twice daily and monitor tolerance and response. Status post respiratory failure with pneumonia and UTI and sepsis. Improved, receiving physical therapy Debility and generalized weakness. Receiving physical therapy Coronary artery disease, history of CABG 4 done in February 2018. Clinically stable. Continue to monitor History of paroxysmal atrial fibrillation, unable to tolerate oral anticoagulation due to recurrent GI bleed. Moderate size left pericardial effusion, persistent since the bypass surgery. And tinea to monitor at this time. Congestive heart failure, chronic left ventricular diastolic dysfunction, secondary to hypertension. Continue to monitor Hypertension, controlled on current medication, continue to monitor History of hepatic cirrhosis, unknown etiology. Scheduled to see a supervisor of way as an outpatient History of esophageal paresis and gastritis. Followed and managed by primary care physician next History of GAVE History of ascites secondary to hepatic cirrhosis Status post pneumonia and UTI resulted in septic shock and encephalopathy Status post respiratory failure. Obesity, BMI 45 Clinical Quality Measures DVT/VTE Risk/Contraindication: Risk Factor Score Per Nursin RFS Level Per Nursing on Admit: 4+=Very High AYSE DODSON MD Jun 20, 2018 10:16 am
[2018-06-20] MEDS: inSUlin NPH (NovoLIN N) 1 UNIT/0.01 ML (CHARGE PER UNIT) SQ SCH (10:26)
--- NOTE | 2018-06-20 10:30 | NUR ---
DR. DODSON HERE. INFORMED OF HYPOTENSION. LOPRESSOR DOSE CHANGED. ALSO INFORMED OF CXR RESULTS.
--- NOTE | 2018-06-20 10:45 | NUR ---
TELEMETRY BURKE'Joe.
--- NOTE | 2018-06-20 11:00 | NUR ---
DR. IBRAHIM NOTIFIED OF CXR RESULTS.
--- NOTE | 2018-06-20 12:00 | NUR ---
DR. GARCIA HERE TO SEE PATIENT AND UPDATED ON CONDITION.
--- NOTE | 2018-06-20 12:52 | PM&R Progress Note ---
Subjective HPI/CC On Admission Date Seen by Provider: Jun 20, 2018 Time Seen by Provider: 12:00 Patient doing very well today Blood sugar was low last night so held insulin Willing to do a NovoLog sliding scale Denies any pain Lower extremity edema will require additional diuresis Appreciate cardiology, hematology, pulmonology consultation Maintained on 2 L of oxygen Bowels are moving Blood pressure stable Has no other issues Family just came to visit when I was completing my exam Subjective/Events-last exam Patient doing well today Sister and niece are at the bedside visiting her Overall feels much better Lower extremity edema will be managed with wide Moe wraps and she is willing to do that Refuses SCDs Has severe bleeding with any type of anticoagulation even DVT prophylaxis and aspirin and has not been well enough to go to for management and ablation of GI bleed Conferred with Dr. Field Labs every other day per Dr. Yobany Haywood states that she has received about 50 units of blood over the last year and IV iron Had tachycardia so Dr. Sosa placed on telemetry increased beta-blockade and added dig Review of Systems General: Fatigue Pulmonary: Dyspnea Cardiovascular: Edema Objective Exam Vital Signs Vital Signs Date Time Temp Pulse Resp B/P (MAP) Pulse Ox O2 Delivery O2 Flow Rate FiO2 06/20/18 09:00 Nasal Cannula 2.00 06/20/18 08:20 89 100/63 (75) 06/20/18 05:33 98.5 16 97 Capillary Refill : General Appearance: No Apparent Distress, WD/WN, Chronically ill, Obese Respiratory: Chest Non Tender, Lungs Clear, Normal Breath Sounds, No Accessory Muscle Use, No Respiratory Distress Cardiovascular: Regular Rate, Rhythm, No Gallop, No JVD, No Murmur, Normal Peripheral Pulses Extremity: Pedal Edema Neurologic/Psychiatric: Alert, Oriented x3, No Motor/Sensory Deficits, Normal Mood/Affect Skin: Normal Color, Warm/Dry Results/Procedures Lab Patient resulted labs reviewed. 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 per Dr Field Wide moe wraps to lower legs to facilitate edema resolution Therapies 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 Qualified Codes : E11.65 - Type 2 diabetes mellitus with hyperglycemia; 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 (10) Oxygen dependent Status: Chronic (11) Loss of weight Status: Acute (12) Hypoxia Status: Chronic (13) CKD (chronic kidney disease) Status: Chronic (14) Portal hypertension Status: Chronic (15) Edema Status: Acute Qualifiers: Edema type: generalized Qualified Codes: R60.1 - Generalized edema Clinical Quality Measures Admission Status Admission Dx Assessment: Critical illness myopathy with severe debilitating requiring inpatient rehabilitation prior to going home to return to independent living Hypoxia requiring 2 L of oxygen supplementation 05/01 Paroxysmal atrial fibrillation Transfusion dependent anemia managed by Dr. Haywood Type II diabetes mellitus Chronic GI bleeding CAD Previous bypass Hyperlipidemia Hypothyroidism History of hepatitis B COPD Thrombocytopenia Chronic renal insufficiency Hypertension Long's esophagus Chronic diastolic heart failure Morbid obesity Plan: Continue diuresis of 80 mg Lasix by mouth daily Evaluate cardiac meds per Dr. Sosa Appreciate Dr. Field evaluation and management of transfusion-dependent anemia Appreciate pulmonology consultation for hypoxemia and maintain oxygen DVT/VTE Risk/Contraindication: Risk Factor Score Per Nursin RFS Level Per Nursing on Admit: 4+=Very High MICHELLE GARCIA DO Jun 20, 2018 12:51
--- NOTE | 2018-06-20 14:00 | NUR ---
WIDE EMMA WRAPS APPLIED TO BILATERAL LOWER LEGS.
[2018-06-20] MEDS: ACETAMINOPHEN 325 MG TABLET PO PRN (17:50)
[2018-06-20 17:56] VITALS: BP 113/68
--- NOTE | 2018-06-20 17:59 | NUR ---
MILD LOWER BACK PAIN AND UPPER LEFT ARM PAIN. THINKS ARM HURTS FROM PULLING SELF UP IN BED. REQUESTED ONLY ONE TYLENOL FOR PAIN. COMPANY VISITED. ONLY 675 CC URINE TODAY SINCE LASIX. MILD TACHYCARDIA AGAIN - LOPRESSOR WAS HELD THIS AM PER DR. DODSON'S ORDERS AND REDUCED DOSAGE OF 50 MG WILL START THIS EVENING.
[2018-06-20] MEDS: SENNA W/DOCUSATE (SENOKOT S) TABLET PO SCH (21:48)
[2018-06-20] MEDS: meTOprolol TARTRATE 50 MG (LOPRESSOR) TAB PO SCH (21:48)
--- NOTE | 2018-06-20 22:51 | CONSULTATION REPORT ---
DATE OF SERVICE: 06/20/2018 The patient is admitted to room #224. REFERRING PHYSICIAN: Sarah Morrell DO. IMPRESSION: This is a 62-year-old female admitted to rehabilitation unit after spending approximately 2 weeks at [facility] with respiratory failure and congestive heart failure. The patient was diagnosed with iron deficiency anemia in 2013, which was felt to be due to chronic GI bleeding. Initial workup did not reveal a source and patient was managed with intermittent parenteral iron therapy as well as occasional packed red blood cell transfusion. During the last year, she has required increased amounts of packed red blood cell transfusion because of rapid onset symptomatic anemia. GI evaluation at [facility] eventually revealed gastric antral vascular ectasia (GAVE) syndrome, which probably was the source of bleeding all along. In the interim, the patient also developed atrial fibrillation with rapid ventricular response and coronary artery disease and CABG. She was tried on anticoagulation, which has significantly worsened the bleeding and was discontinued. She was scheduled for ablation of the vascular ectasia, but workup indicated probable cirrhosis. Ablation was held and multiple attempts were made to get her to a wrong address clerk, but the appointment had to be canceled for various reasons. In the interim, her general condition continued to worsen and she was intubated recently because of respiratory failure secondary to infection and transferred to [facility]. She was treated and diuresed aggressively and extubated. She was significantly deconditioned and was admitted to the rehabilitation unit at [facility] for strengthening. Hematology consultation was requested for concurrent care. PAST MEDICAL HISTORY: Significant for: 1. Hypertension for 10 years or more 2. Diabetes mellitus type 2 diagnosed approximately 10 years ago with poor control. 3. Hypothyroidism, which is longstanding and is on replacement. 4. History of atrial fibrillation with rapid ventricular response. 5. Coronary artery disease requiring stent placement. 6. Hypercholesterolemia, was on treatment previously. 7. Osteoarthritis involving the major joints. 8. She has had a CABG in February 2018. PAST SURGICAL HISTORY: Include left ankle reconstruction in . Left knee arthroscopic surgery more than 20 years ago and repeated more than 10 years ago. Tubal ligation in 1979. Bilateral reduction mammoplasty 1996. Cardiac catheterization with stent placement approximately seven years ago. SOCIAL HISTORY: The patient is and lives in [place], [place]. She has two children, a son who lives in [place] and a daughter who lives close by. 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 She has [id number] history of tobacco use, but quit approximately 30 years ago. Alcohol use socially, but none recently and no other recreational drug use. FAMILY HISTORY: Significant for father with throat cancer at the age of 59. Paternal grandfather with colon cancer that is malignant. Paternal grandmother with colon cancer in her late 50s. The patient's sister with breast cancer at the age of 40 years. Brother with skin cancer. Maternal uncle with lung cancer and an aunt with an unknown malignancy while in her 50s. PHYSICAL EXAMINATION: GENERAL: Today showed an elderly female, obese, awake and oriented and in mild distress due to the fatigue. VITAL SIGNS: Temperature was 98.5, pulse rate of 81, respirations 16, blood pressure 95/62 with oxygen saturation of 97% on 2 liters of oxygen by nasal cannula. HEENT: Normocephalic, extraocular muscles intact, conjunctivae slightly pale, oral mucosa moist without lesions. NECK: Supple, with no JVD. No cervical, supraclavicular or axillary lymphadenopathy palpable. CHEST: Symmetrical. LUNGS: Slightly diminished breath sounds bilaterally, but clear to auscultation without wheezes or rales. CARDIOVASCULAR: Regular rate and rhythm with intermittent missed beats. No murmurs or gallops heard. ABDOMEN: Obese, soft, nontender with no definite hepatosplenomegaly or other masses palpable. EXTREMITIES: Showed 2+ edema of the lower extremity and the lower back. NEUROLOGIC: Showed no focal motor deficits. The patient overall motor strength was 4/5 bilaterally. LABORATORY DATA: CBC done on 06/19/2018 showed WBC 5.2, hemoglobin 9.2, MCV 101, platelet count 172,000 with neutrophil count 3.1 and lymphocyte count of 1.0. Chemistry panel showed normal electrolytes except CO2 level of 35, BUN was 16 and creatinine 1.26 with a GFR 43 mL per minute. Nonfasting glucose was 110. Liver function studies are within normal limits except albumin level of 3.1. Serum ferritin level is pending. Chest x-ray showed cardiomegaly with central interstitial edema. Moderate left pleural effusion was noted. Impression: 1. Anemia secondary to chronic gastrointestinal blood loss requiring transfusion support as well as parenteral iron therapy. 2. Gastric antral vascular ectasia (GAVE) syndrome diagnosed few months ago and awaiting ablation. 3. Recent hypercapnic respiratory failure as well as congestive heart failure requiring ventilator support. The patient has been extubated and transferred to the rehabilitation unit at [facility] for strengthening. 4. History of coronary artery disease, paroxysmal atrial fibrillation, and inability to anticoagulate secondary to gastrointestinal bleeding. 5. Probable cirrhosis which is cryptogenic. Hepatology evaluation pending. 6. History of ascites requiring intermittent paracentesis. 7. Morbid obesity. RECOMMENDATIONS: 1. Continue management of cardiac issues as you are doing. 2. Continue physical therapy for strengthening and ambulation. 3. Monitor hemoglobin level at least every other day and transfuse packed red blood cells to maintain hemoglobin 8 gram per deciliter or more because of cardiac problems and respiratory failure. 4. Once the patient is stable physically, I would recommend hepatology and gastroenterology follow up at [facility] for possible ablation of GAVE syndrome. 5. Continue rest of the management as you are doing. I will follow the patient with you and make appropriate recommendations. Job ID: [id number] DocumentID: [id number] Dictated Date: 06/20/2018 14:18:38 Wet Roller Date: 06/20/2018 22:50:55 Dictated By: SHIREEN AGARWAL MD MTDD
[2018-06-21] VITALS (7 sets, daily range): BP systolic 94–119; BP diastolic 61–69
[2018-06-21] MEDS: LEVOTHYROXINE 25 MCG (LEVOTHROID) TAB PO SCH (06:29)
[2018-06-21] MEDS: KCL 20 MEQ TAB (K-DUR) PO SCH (06:29)
[2018-06-21] MEDS: PANTOPRAZOLE 40 MG (PROTONIX) TAB PO SCH ×2 (06:29→21:10)
[2018-06-21] MEDS: LEVOTHYROXINE 150 MCG (LEVOTHROID) TAB PO SCH (06:29)
[2018-06-21] MEDS: inSUlin ASPART (NovoLOG) 1 UNIT/0.01 ML (CHARGE PER UNIT) SC SCH ×4 (06:30→21:06)
[2018-06-21 06:45] LABS: BASOPHILS % (AUTO) 0 % (0-10); EOSINOPHILS # (AUTO) 0.3 10^3/uL (0.0-0.3); EOSINOPHILS % (AUTO) 10 % (0-10); HEMATOCRIT 25 % (35-52); HEMOGLOBIN 7.5 G/DL (11.5-16.0); LYMPHOCYTES # (AUTO) 0.7 X 10^3 (1.0-4.0); LYMPHOCYTES % (AUTO) 28 % (12-44); MEAN CORPUSCULAR HEMOGLOBIN 31 PG (25-34); MEAN CORPUSCULAR HGB CONC 30 G/DL (32-36); MEAN CORPUSCULAR VOLUME 103 FL (80-99); MONOCYTES # (AUTO) 0.3 X 10^3 (0.0-1.0); MONOCYTES % (AUTO) 11 % (0-12); NEUTROPHILS # (AUTO) 1.4 X 10^3 (1.8-7.8); NEUTROPHILS % (AUTO) 51 % (42-75); PLATELET COUNT 116 10^3/uL (130-400); RED BLOOD COUNT 2.44 10^6/uL (4.35-5.85); RED CELL DISTRIBUTION WIDTH 15.1 % (10.0-14.5); WHITE BLOOD COUNT 2.7 10^3/uL (4.3-11.0)
[2018-06-21 07:11] LABS: ALBUMIN 2.5 GM/DL (3.2-4.5); BILIRUBIN,TOTAL 0.5 MG/DL (0.1-1.0); CALCIUM 8.5 MG/DL (8.5-10.1); CREATININE SERUM 1.63 MG/DL (0.60-1.30); POTASSIUM 4.2 MMOL/L (3.6-5.0); TOTAL PROTEIN 6.1 GM/DL (6.4-8.2)
--- NOTE | 2018-06-21 08:19 | PM&R Progress Note ---
Subjective This was a face to face visit with the patient. Date Seen by Provider: Jun 21, 2018 Time Seen by Provider: 08:15 Subjective/Events-last exam Patient was seen in room while patient was up in chair Patient still very weak Has required multiple transfusions over the last year due to severe anemia from chronic GI bleed that she has yet to receive ablation to resolve it KU all delayed because of acute illnesses. Still is very weak but participating in all therapies Blood pressure is very labile as is bradycardia requiring cardiology consultation from Dr. Sosa until returns. Bowels are moving normally Requires oxygen and that is a brand-new requirement for her that started 2 days prior to critical illness requiring intubation and transfer to Date Identified: Jun 21, 2018 Medication Intervention: Severe acute on chronic anemia requiring transfusions if < 8.[address] Field and to check levels every other day Review of Systems General: Fatigue, Malaise Pulmonary: Dyspnea Gastrointestinal: Other (loss of appetite) Musculoskeletal: arm pain Objective Physician Exam Last Set of Vital Signs Vital Signs Date Time Temp Pulse Resp B/P (MAP) Pulse Ox O2 Delivery O2 Flow Rate FiO2 06/21/18 07:50 Nasal Cannula 2.00 06/21/18 05:03 97.0 81 18 101/64 (76) 96 Capillary Refill : I&O Intake and Output 06/21/18 00:00 Intake Total 1380 ml Output Total 675 ml Balance 705 ml Intake Oral 1380 ml Output Urine Total 675 ml # Voids 3 General: Alert, Oriented X3, Cooperative, No Acute Distress HEENT: Atraumatic, PERRLA, EOMI, Mucous Memb Moist/[place] Neck: Supple, No JVD, No Thyromegaly, +2 Carotid Pulse No Bruit, No LAD Lungs: Clear to Auscultation, Normal Air Movement, Other (diminished BS bases) Heart: Regular Rate, Normal S1, Normal S2 Abdomen: Normal Bowel Sounds, Soft, No Tenderness, No Hepatosplenomegaly, No Masses Extremities: No Clubbing, No Cyanosis, Other (edema noted lower legs) Skin: No Rashes, No Breakdown, No Significant Lesion Neuro: Normal Speech, Normal Tone, Sensation Intact, Cranial Nerves 3-12 NL, Reflexes 2+, Other (global weakness of all extremities 4/5) Psych/Mental Status: Mental Status NL, Mood NL Results Lab Data Laboratory Tests 06/18/18 16:54: Glucometer 114H 06/18/18 20:30: Glucometer 140H 06/19/18 05:15: Glucometer 103 06/19/18 07:11: White Blood Count 5.3, Red Blood Count 2.96L, Hemoglobin 9.2L, Hematocrit 30L, Mean Corpuscular Volume 101H, Mean Corpuscular Hemoglobin 31, Mean Corpuscular Hemoglobin Concent 31L, Red Cell Distribution Width 15.6H, Platelet Count 172, Mean Platelet Volume 10.2, Neutrophils (%) (Auto) 58, Lymphocytes (%) (Auto) 20 , Monocytes (%) (Auto) 13H, Eosinophils (%) (Auto) 9, Basophils (%) (Auto) 1, Neutrophils # (Auto) 3.1, Lymphocytes # (Auto) 1.0, Monocytes # (Auto) 0.7, Eosinophils # (Auto) 0.5H, Basophils # (Auto) 0.0, Sodium Level 141, Potassium Level 3.7, Chloride Level 93L, Carbon Dioxide Level 35H, Anion Gap 13, Blood Urea Nitrogen 16, Creatinine 1.26, Estimat Glomerular Filtration Rate 43, BUN/ Creatinine Ratio 13, Glucose Level 110H, Calcium Level 9.3, Corrected Calcium 10.0, Ferritin 168.2, Total Bilirubin 0.7, Aspartate Amino Transf (AST/SGOT) 33 , Alanine Aminotransferase (ALT/SGPT) 13, Alkaline Phosphatase 65, Total Protein 7.0, Albumin 3.1L 06/19/18 11:58: Glucometer 139H 06/19/18 16:15: Glucometer 171H 06/19/18 21:05: Glucometer 194H 06/20/18 05:28: Glucometer 153H 06/20/18 10:21: Glucometer 114H 06/20/18 15:34: Glucometer 101 06/21/18 06:27: Glucometer 146H 06/21/18 06:30: White Blood Count 2.7L, Red Blood Count 2.44L, Hemoglobin 7.5L, Hematocrit 25L, Mean Corpuscular Volume 103H, Mean Corpuscular Hemoglobin 31, Mean Corpuscular Hemoglobin Concent 30L, Red Cell Distribution Width 15.1H, Platelet Count 116L, Mean Platelet Volume 10.0, Neutrophils (%) (Auto) 51, Lymphocytes (%) (Auto) 28 , Monocytes (%) (Auto) 11, Eosinophils (%) (Auto) 10, Basophils (%) (Auto) 0, Neutrophils # (Auto) 1.4L, Lymphocytes # (Auto) 0.7L, Monocytes # (Auto) 0.3, Eosinophils # (Auto) 0.3, Basophils # (Auto) 0.0, Sodium Level 140, Potassium Level 4.2, Chloride Level 94L, Carbon Dioxide Level 37H, Anion Gap 9, Blood Urea Nitrogen 18, Creatinine 1.63H, Estimat Glomerular Filtration Rate 32, BUN/ Creatinine Ratio 11, Glucose Level 138H, Calcium Level 8.5, Corrected Calcium 9.7, Total Bilirubin 0.5, Aspartate Amino Transf (AST/SGOT) 25, Alanine Aminotransferase (ALT/SGPT) 7, Alkaline Phosphatase 56, Total Protein 6.1L, Albumin 2.5L Current Funtional Status Continue monitoring hemoglobin Transfusion as needed for hemoglobin less than 8.[address] 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 (3) Atrial fibrillation Qualifiers: Qualified Codes: I48.0 - Paroxysmal atrial fibrillation Status: Chronic (4) Hypothyroidism Qualifiers: Qualified Codes: E03.9 - Hypothyroidism, unspecified Status: Chronic (5) Coronary artery disease Qualifiers: Qualified Codes: I25.10 - Atherosclerotic heart disease of [place] coronary artery without angina pectoris Status: Chronic (6) Hypertension Qualifiers: Qualified Codes: I10 - Essential (primary) hypertension Status: Chronic (7) GI bleeding Status: Chronic (8) Transfusion-dependent anemia Status: Chronic (9) Type 2 diabetes mellitus with hyperglycemia Qualifiers: Qualified Codes: E11.65 - Type 2 diabetes mellitus with hyperglycemia; Z79.4 - longterm (current) use of insulin Status: Chronic (10) Oxygen dependent Status: Chronic (11) Loss of weight Status: Acute (12) Hypoxia Status: Chronic (13) CKD (chronic kidney disease) Status: Chronic (14) Portal hypertension Status: Chronic (15) Edema Qualifiers: Qualified Codes: R60.1 - Generalized edema Status: Acute (16) Pleural effusion Status: Chronic Co-Morbidities that are continuing to impact the rehab process: (include details ) MICHELLE GARCIA DO Jun 21, 2018 08:19
--- NOTE | 2018-06-21 08:22 | Pulmonary Progress Note ---
Subjective Time Seen by a Provider: 08:21 Subjective/Events-last exam Pt in gym doing PT/OT. Sepsis Event Evaluation Height, Weight, BMI Height: 5'4.00" Weight: 263lbs. 1.6oz. 119.924411jk; 45.0 BMI Method:Stated Exam Exam Vital Signs Date Time Temp Pulse Resp B/P (MAP) Pulse Ox O2 Delivery O2 Flow Rate FiO2 06/21/18 07:50 Nasal Cannula 2.00 06/21/18 05:03 97.0 81 18 101/64 (76) 96 Nasal Cannula 2.00 06/20/18 22:37 Nasal Cannula 2.00 06/20/18 21:54 Nasal Cannula 2.00 06/20/18 17:56 98.2 103 20 113/68 (83) 97 Nasal Cannula 2.00 06/20/18 09:00 Nasal Cannula 2.00 06/20/18 08:20 89 100/63 (75) I & O 06/21/18 07:00 Intake Total 1440 ml Output Total 1025 ml Balance 415 ml Height & Weight Height: 5'4.00" Weight: 263lbs. 1.6oz. 119.556549yq; 45.0 BMI Method:Stated General Appearance: No Apparent Distress, WD/WN, Chronically ill, Obese HEENT: PERRL/EOMI, Normal ENT Inspection, Pharynx Normal Neck: Full Range of Motion, Normal Inspection, Non Tender, Supple, Carotid Bruit Respiratory: Chest Non Tender, Lungs Clear, Normal Breath Sounds, No Accessory Muscle Use, No Respiratory Distress Cardiovascular: Regular Rate, Rhythm, No Gallop, No JVD, No Murmur, Normal Peripheral Pulses Extremity: Pedal Edema Neurologic/Psychiatric: Alert, Oriented x3, No Motor/Sensory Deficits, Normal Mood/Affect Skin: Normal Color, Warm/Dry Lymphatic: No Adenopathy Results Lab Laboratory Tests 06/21/18 06:30 Assessment/Plan Assessment/Plan Debility/myopathy secondary to extended hospital stay -Rehab Chronic respiratory failure including hypoxia -Oxygen - currently 2 liters -out patient PFT - PA/Lat CXR reviewed Anemia -repeat stat H&H -Occult stools Gastric antral vascular ectasia -Dx at Afib- chronic CAD -Cardiology following BRISEIDA IBRAHIM DO Jun 21, 2018 08:21
--- NOTE | 2018-06-21 08:41 | Cardiology Progress Note ---
Subjective Date Seen by Provider: Jun 21, 2018 Time Seen by Provider: 08:37 Subjective/Events-last exam Patient is sitting up in chair, denies any chest pain, dizziness, or lightheadedness. Review of Systems General: No Night Sweats, No Fatigue, No Malaise HEENT: No Visual Changes, No Dysphasia Pulmonary: No Dyspnea, No Cough Cardiovascular: No: Chest Pain, Palpitations Gastrointestinal: No: Nausea, Vomiting, Abdominal Pain Genitourinary: No Dysuria, No Frequency Musculoskeletal: No: neck pain, back pain Neurological: No: Weakness, Numbness, Change in speech, Confusion Objective-Cardiology Exam Last Set of Vital Signs Vital Signs 06/21/18 06/21/18 05:03 07:50 Temp 97.0 Pulse 81 Resp 18 B/P (MAP) 101/64 (76) Pulse Ox 96 O2 Delivery Nasal Cannula O2 Flow Rate 2.00 Capillary Refill : I&O Intake and Output 06/21/18 00:00 Intake Total 1380 ml Output Total 675 ml Balance 705 ml Intake Oral 1380 ml Output Urine Total 675 ml # Voids 3 General: Alert, Oriented X3, Cooperative, No Acute Distress HEENT: Atraumatic, PERRLA, EOMI, Mucous Memb Moist/[place] Neck: Supple, No JVD, No Thyromegaly, +2 Carotid Pulse No Bruit, No LAD Lungs: Clear to Auscultation, Normal Air Movement Heart: Regular Rate, Normal S1, Normal S2 Abdomen: Normal Bowel Sounds, Soft, No Tenderness, No Hepatosplenomegaly, No Masses Extremities: No Clubbing, No Cyanosis, Other (edema noted lower legs) Skin: No Rashes, No Breakdown, No Significant Lesion Neuro: Normal Speech, Normal Tone, Sensation Intact, Cranial Nerves 3-12 NL, Reflexes 2+, Other (global weakness of all extremities 4/5) Psych/Mental Status: Mental Status NL, Mood NL Results Lab Laboratory Tests 06/21/18 06:30 A/P-Cardiology Admission Diagnosis sinus tachycardia Hypertension Coronary artery disease Chronic renal insufficiency Assessment/Plan Sinus tachycardia, multifactorial, history of paroxysmal atrial fibrillation, borderline hypotensive, I will hold Lopressor this morning, continue to monitor. Status post respiratory failure with pneumonia and UTI and sepsis. Improved, receiving physical therapy Debility and generalized weakness. Receiving physical therapy Anemia- worsening. Has been following with Dr. Field. 1 unit PRBCs ordered for this morning. Coronary artery disease, history of CABG 4 done in February 2018. Clinically stable. Continue to monitor History of paroxysmal atrial fibrillation, unable to tolerate oral anticoagulation due to recurrent GI bleed. Moderate size left pericardial effusion, persistent since the bypass surgery. Maintained on Lasix, continue to monitor. Congestive heart failure, chronic left ventricular diastolic dysfunction, secondary to hypertension. Continue to monitor Hypertension, controlled on current medication, continue to monitor History of hepatic cirrhosis, unknown etiology. Scheduled to see a project facilitator as an outpatient History of esophageal paresis and gastritis. Followed and managed by primary care physician next History of GAVE History of ascites secondary to hepatic cirrhosis Status post pneumonia and UTI resulted in septic shock and encephalopathy Status post respiratory failure. Obesity, BMI 45 Clinical Quality Measures DVT/VTE Risk/Contraindication: Risk Factor Score Per Nursin RFS Level Per Nursing on Admit: 4+=Very High CHRISSY WINCHESTER Jun 21, 2018 08:41
[2018-06-21] MEDS: FUROSEMIDE 40 MG (LASIX) TAB PO SCH (09:26)
[2018-06-21] MEDS: DIGOXIN 0.125 MG (LANOXIN) TAB PO SCH (09:26)
[2018-06-21] MEDS: LORATADINE (CLARITIN) 10 MG TAB PO SCH (09:26)
[2018-06-21] MEDS: ASPIRIN E.C. 81 MG (ECOTRIN) TAB PO SCH (09:26)
[2018-06-21] MEDS: FOLIC ACID 1 MG TAB PO SCH (09:27)
--- NOTE | 2018-06-21 09:29 | Physical Therapy Daily Note ---
PT Daily Note-Current Subjective Pt. mentions that her hgb is low again today and that she is expecting to get a unit of blood today. " I hope they go ahead and type and cross match me now b/c its a good possibility they will have to have my special blood type sent from [facility]". Pt. comments " are there sparkles on the ceiling or is that me"? c/o she feels she may have strained her left shoulder while pulling herself up in bed, using rail Pain Numeric Pain Scale: 0-No Pain Location: No Pain Reported Comment: states her LEs feel tight behind the knees when she bends them for exercise Mental Status Patient Orientation: Normal For Age Attachments: Oxygen (2L) Transfers Therapy Code Descriptions/Definitions Functional [place] Measure: 0=Not Assessed/NA 4=Minimal Assistance 1=Total Assistance 5=Supervision or Setup 2=Maximal Assistance 6=Modified [place] 3=Moderate Assistance 7=Complete [place] Therapy Quality Codes: 6 Independent with activity with or without an assistive device 5 Patient requires set up or clean up by helper. Patient completes activity by themselves 4 Supervision or touching assist (CGA). Stanley provide cues , steadying assist 3 The helper provides less than half the effort to complete the activity 2 The helper provides more than half the effort to complete the activity 1 Dependent. The helper does all the effort to complete an activity 7 Patient refused to complete or attempt activity 9 The patient did not perform the activity before the current illness or injury 88 Not attempted due to Medical conditions or safety concerns Transfers (B, C, W/C) (FIM): 5 Scootin Rollin Supine to/from Sit: 5 Sit to/from Stand: 6 Bed to/from Chair: 5 Gait Training Does the Patient Walk?: Yes Gait (FIM): 1 Distance (FIM): 1=up to 49 ft (8ftx4) Gait Level of Assist: 4 Gait Persons Needed: 1 Gait Assistive Device: FWW pt. with low hgb and c/o some dizziness upon stance and seeing stars so gait was not done for longer distance for safety Wheelchair Training Does the Pt Use a Wheelchair?: Yes Wheelchair (FIM): 2 Wheelchair Distance: 2=346-11 ft (75x3) Wheelchair Level of Assist: 5 Type of Wheelchair: Manual fatigues with w/c mobility Exercises Supine Ex: Ankle pumps, Quad Set, Rolling, Heel Slides, Short Arc Quads, Scooting, Straight leg raise (x5 bilat), Hip abd/add Supine Reps: 15 Seated Therapy Exercises: Ankle pumps, Sit to stand, Long arc quads, Hip flexion Seated Reps: 10 Standing: Hip Abduction, Heel/toe raises, Marching, Mini squats Standing Reps: 12 Treatments careful today as pt. has low hgb and BP, may get transfused later today Assessment Current Status: Good Progress motivated, gives good effort, limited this date by low hgb at 7.5 and some c/o dizziness and low BP PT Short Term Goals Short Term Goals Time Frame: Jun 25, 2018 Transfers (B,C,W/C) (FIM): 4 Gait (FIM): 1 Gait Distance Comment: 25' Gait Level of Assist: 4 Gait Assistive Device: FWW PT Whizzer Goals Whizzer Goals PT Whizzer Goals Time Frame: Jul 09, 2018 Transfers (B,C,W/C) (FIM): 5 Sit to Lying (QC): 4 Lying-Sitting on Side/Bed(QC): 4 Sit to Stand (QC): 4 Rollin Roll Left to Right (QC): 4 Chair/[id number]-Tgaoj Xfer(QC): 4 Car Transfer (QC): 4 Gait (FIM): 2 Distance: 50' Walk 10 feet (QC): 4 Walk 10ft-Uneven Surface(QC): 4 Walk 50ft with 2 Turns (QC): 4 Gait Level of Assist: 5 Gait Assistive Device: FWW Stairs (FIM): 1 # of Steps: 1 1 Step (curb) (QC): 4 Stairs Level Of Assist: 4 PT Plan Treatment/Plan Treatment Plan: Continue Plan of Care Treatment Plan: Bed Mobility, Concurrent Therapy, Education, Functional Activity Tamy, Functional Strength, Group Therapy, Gait, Safety, Therapeutic Exercise, Transfers Treatment Duration: Jul 09, 2018 Frequency: At least 5 of 7 days/Wk (IRF) Estimated Hrs Per Day: 1.5 hours per day Patient and/or Family Agrees t: Yes Safety Risks/Education Patient Education: Gait Training, Transfer Techniques, Correct Positioning, W/ C Management, Disease Process, Safety Issues Teaching Recipient: Patient Teaching Methods: Demonstration, Discussion Response to Teaching: Verbalize Understanding, Return Demonstration, Reinforcement 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
[2018-06-21] MEDS: meTOprolol TARTRATE 50 MG (LOPRESSOR) TAB PO SCH ×2 (09:43→21:10)
[2018-06-21] MEDS: inSUlin NPH (NovoLIN N) 1 UNIT/0.01 ML (CHARGE PER UNIT) SQ SCH (09:44)
--- NOTE | 2018-06-21 09:45 | NUR ---
Noted HGB 7.5 this morning, down from 9.2 on 06/19. Patient is Hypotensive this morning. No distress noted or reported. Dr. Morrell notified, requested to notify Emily Field and Sheila. Dr. Field ordered to infuse [address] Sosa orders to hold Lopressor this morning. Will continue to monitor closely. Awaiting lab draw for type and cross match.
--- NOTE | 2018-06-21 09:51 | Cardiology Progress Note ---
Subjective Date Seen by Provider: Jun 21, 2018 Time Seen by Provider: 09:48 Subjective/Events-last exam patient is sitting in a chair, feeling better, still having edema. No dizziness , borderline hypotension Review of Systems General: No Chills, No Night Sweats, No Fatigue, No Malaise, No Appetite, No Other HEENT: No Head Aches, No Visual Changes, No Eye Pain, No Ear Pain, No Dysphasia , No Sinus Congestion, No Post Nasal Drip, No Sore Throat, No Other Pulmonary: No Dyspnea, No Cough, No Pleuritic Chest Pain, No Other Cardiovascular: Edema; No: Chest Pain, Palpitations, Orthopnea, Paroxysmal Noc. Dyspnea, Lt Headedness, Other Objective-Cardiology Exam Last Set of Vital Signs Vital Signs 06/21/18 06/21/18 06/21/18 05:03 09:23 09:24 Temp 97.0 Pulse 97 Resp 18 B/P (MAP) 94/61 (72) Pulse Ox 97 O2 Delivery Nasal Cannula O2 Flow Rate 2.00 Capillary Refill : I&O Intake and Output 06/21/18 00:00 Intake Total 1380 ml Output Total 675 ml Balance 705 ml Intake Oral 1380 ml Output Urine Total 675 ml # Voids 3 General: Alert, Oriented X3, Cooperative, No Acute Distress HEENT: Atraumatic, PERRLA, EOMI, Mucous Memb Moist/[place] Neck: Supple, No JVD, No Thyromegaly, +2 Carotid Pulse No Bruit, No LAD Lungs: Clear to Auscultation, Normal Air Movement Heart: Regular Rate, Normal S1, Normal S2 Abdomen: Normal Bowel Sounds, Soft, No Tenderness, No Hepatosplenomegaly, No Masses Extremities: No Clubbing, No Cyanosis, Other (edema noted lower legs) Skin: No Rashes, No Breakdown, No Significant Lesion Neuro: Normal Speech, Normal Tone, Sensation Intact, Cranial Nerves 3-12 NL, Reflexes 2+, Other (global weakness of all extremities 4/5) Psych/Mental Status: Mental Status NL, Mood NL Results Lab Laboratory Tests 06/21/18 06:30 A/P-Cardiology Admission Diagnosis sinus tachycardia Hypertension Coronary artery disease Chronic renal insufficiency Assessment/Plan Sinus tachycardia, multifactorial, history of paroxysmal atrial fibrillation, hypotensive today, hold Lopressor. Continue on diuretics and monitor Status post respiratory failure with pneumonia and UTI and sepsis. Improved, receiving physical therapy Debility and generalized weakness. Receiving physical therapy Anemia- worsening. Has been following with Dr. Field. 1 unit PRBCs ordered for this morning. Coronary artery disease, history of CABG 4 done in February 2018. Clinically stable. Continue to monitor History of paroxysmal atrial fibrillation, unable to tolerate oral anticoagulation due to recurrent GI bleed. Moderate size left pericardial effusion, persistent since the bypass surgery. Maintained on Lasix, continue to monitor. Congestive heart failure, chronic left ventricular diastolic dysfunction, secondary to hypertension. Continue to monitor Hypertension, controlled on current medication, continue to monitor History of hepatic cirrhosis, unknown etiology. Scheduled to see a county records management officer as an outpatient History of esophageal paresis and gastritis. Followed and managed by primary care physician next History of GAVE History of ascites secondary to hepatic cirrhosis Status post pneumonia and UTI resulted in septic shock and encephalopathy Status post respiratory failure. Obesity, BMI 45 Clinical Quality Measures DVT/VTE Risk/Contraindication: Risk Factor Score Per Nursin RFS Level Per Nursing on Admit: 4+=Very High AYSE DODSON MD Jun 21, 2018 09:51
[2018-06-21] MEDS: ONDANSETRON 8 MG (ZOFRAN) ORAL DISSOLVE TAB PO PRN (10:31)
[2018-06-21 11:02] LABS: HEMOGLOBIN 8.3 G/DL (11.5-16.0)
--- NOTE | 2018-06-21 13:23 | Occupational Ther Daily Note ---
OT Current Status-Daily Note Subjective Pt. reports pain in left shoulder with active movement. Does not report pain level. Nursing is notified. Pt. does decline pain medication. Appearance Pt. is up in chair. Alert and oriented. Mental Status/Objective Patient Orientation: Person, Place Therapy Code Descriptions/Definitions Functional [place] Measure: 0=Not Assessed/NA 4=Minimal Assistance 1=Total Assistance 5=Supervision or Setup 2=Maximal Assistance 6=Modified [place] 3=Moderate Assistance 7=Complete [place] ADL-Treatment Nursing reports to this therapist that pt. has low BP and hemoglobin. Does okay for OT to work with her. However, due to medical issues, OT felt it best not to shower at this time. Pt. agrees to spongebathe while in chair. Therapy Code Descriptions/Definitions Functional [place] Measure: 0=Not Assessed/NA 4=Minimal Assistance 1=Total Assistance 5=Supervision or Setup 2=Maximal Assistance 6=Modified [place] 3=Moderate Assistance 7=Complete [place] Therapy Quality Codes: 6 Independent with activity with or without an assistive device 5 Patient requires set up or clean up by helper. Patient completes activity by themselves 4 Supervision or touching assist (CGA). [place]ke[place] provide cues , steadying assist 3 The helper provides less than half the effort to complete the activity 2 The helper provides more than half the effort to complete the activity 1 Dependent. The helper does all the effort to complete an activity 7 Patient refused to complete or attempt activity 9 The patient did not perform the activity before the current illness or injury 88 Not attempted due to Medical conditions or safety concerns Bathing (FIM): 3 (Pt. is able to wash all parts except for radha area in stance , and between her toes. Utilizes LH sponge to wash legs and feet.) Shower/Bathe Self (QC): 3 Upper Body (FIM): 5 (Set up to doff/don nightgown.) Upper Body Dressing (QC): 5 Lower Body Dressing (FIM): 3 (Pt. is able to doff socks with DS, but requires mod assistance to don slipper socks with sock aide.) Lower Body Dressing (QC): 3 On/Off Footwear (QC): 3 Transfers (B, C, W/C) (FIM): 4 (CGA to stand out of chair.) Other Treatment Pt. is issued toilet tongs and educated on AE. Pt. agrees to spongebathe. Increased time required. Pt. also requires increased rest breaks. Pt. does state that her arm started to hurt after pulling herself up in bed yesterday. Demonstrates approximately 60 degrees left shoulder flexion and limited external rotation. Nursing is notified to notify physician. Education OT Patient Education: Correct positioning, Modified ADL techniques, Progress toward Goal/Update tx plan, Purpose of tx/functional activities, Reviewed precautions, Rehab process, Transfer techniques, Use of adapted equipment Teaching Recipient: Patient Teaching Methods: Demonstration, Discussion Response to Teaching: Verbalize Understanding, Return Demonstration OT Short Term Goals Short Term Goals Time Frame: Jun 25, 2018 Lower Body Dressing(FIM): 5 Toileting(FIM): 5 Transfers (B,C,W/C) (FIM): 4 Toilet/Commode Transfer(FIM): 5 1=Demonstrate adherence to instructed precautions during ADL tasks. 2=Patient will verbalize/demonstrate understanding of assistive devices/ modifications for ADL. 3=Patient will improve strength/tolerance for activity to enable patient to perform ADL's. OT Fire Range Technician Goals Retirement Goals Time Frame: Jul 09, 2018 Eating (FIM): 6 Eating (QC): 6 Groomin Oral Hygiene (QC): 6 Bathing(FIM): 6 Shower/Bathe Self (QC): 6 Upper Body Dressing(FIM): 6 Upper Body Dressing (QC): 6 Lower Body Dressing(FIM): 6 Lower Body Dressing (QC): 6 On/Off Footwear (QC): 6 Toileting(FIM): 6 Toileting Hygiene (QC): 6 Toilet/Commode Transfer(FIM): 6 Toilet/Commode Transfer (QC): 6 Shower Transfer(FIM): 5 Additional Goals: 1-Demonstrate ADL Tasks, 2-Verbalize Understanding, 3- ImproveStrength/Tamy 1=Demonstrate adherence to instructed precautions during ADL tasks. 2=Patient will verbalize/demonstrate understanding of assistive devices/ modifications for ADL. 3=Patient will improve strength/tolerance for activity to enable patient to perform ADL's. OT Education/Plan Problem List/Assessment Assessment: Decreased Activ Tolerance, Decreased UE Strength, Dependent Transfers, Impaired I ADL's, Impaired Self-Care Skills, Restricted Funct UE ROM Pt demonstrates decreased activity tolerance, strength, mobility, and ADL functioning. Pt to benefit from skilled OT intervention for ADL training, transfers, strengthening, and home safety education to increase functional independence and allow safe discharge home. Discharge Recommendations Plan/Recommendations: Continue POC Therapy D/C Recommendations: Home w/ Family Support, Occupational Therapy Home Care, Scheduled Assistance Equpiment Recommendations-D/C: Hip Kit Comment All equipment needs to be determined. Treatment Plan/Plan of Care Treatment,Training & Education: Yes Patient would benefit from OT for education, treatment and training to promote independence in ADL's, mobility, safety and/or upper extremity function for ADL' s. Plan of Care: ADL Retraining, Functional Mobility, Group Exercise/Act as Ind, UE Funct Exercise/Act Treatment Duration: Jul 09, 2018 Frequency: At least 5 of 7 days/Wk (IRF) Estimated Hrs Per Day: 1.5 hours per day Agreement: Yes Rehab Potential: Fair Time/GCodes Start Time: 09:30 Stop Time: 11:00 Total Time Billed (hr/min): 90 Billed Treatment Time 1, ADL x 6 SANDRA COMER OT Jun 21, 2018 13:23
--- NOTE | 2018-06-21 18:03 | Progress Note-Standard ---
Standard Progress Note Progress Notes/Assess & Plan Date Seen by a Provider: Jun 21, 2018 Time Seen by a Provider: 17:54 Progress/Assessment & Plan 62-year-old female with iron deficiency anemia due to chronic GI bleeding was required numerous transfusions and parenteral iron therapies over the last 1-1/ 2 years. Recent episode of the respiratory failure and ventilator management but extubated with significant deconditioning. Currently undergoing physical therapy for strengthening. Working with physical therapy and feeling slightly better although complaining of dyspnea on exertion. Lab work noted with decline in hemoglobin level. Patient has very poor peripheral venous access and would recommend a permanent implanted port placement for lab work, transfusions and IV medications. Will follow patient with you. SHIREEN AGARWAL Jun 21, 2018 18:03
[2018-06-21] MEDS: SENNA W/DOCUSATE (SENOKOT S) TABLET PO SCH (21:10)
[2018-06-22] VITALS (8 sets, daily range): BP systolic 106–127; BP diastolic 68–76
[2018-06-22] MEDS: inSUlin ASPART (NovoLOG) 1 UNIT/0.01 ML (CHARGE PER UNIT) SC SCH ×4 (06:57→20:24)
--- NOTE | 2018-06-22 07:21 | Pulmonary Progress Note ---
Subjective Time Seen by a Provider: 07:19 Subjective/Events-last exam No complications noted. Sepsis Event Evaluation Height, Weight, BMI Height: 5'4.00" Weight: 263lbs. 1.6oz. 119.879415jt; 45.0 BMI Method:Stated Exam Exam Vital Signs Date Time Temp Pulse Resp B/P (MAP) Pulse Ox O2 Delivery O2 Flow Rate FiO2 06/22/18 06:09 97.3 90 20 106/68 (81) 95 Nasal Cannula 2.00 06/21/18 21:10 125 119/67 (84) 06/21/18 20:00 Nasal Cannula 2.00 06/21/18 18:04 97.3 108 18 117/62 (80) 99 Nasal Cannula 2.00 06/21/18 15:40 96 18 111/61 (78) 100 Nasal Cannula 2.00 06/21/18 11:30 81 20 106/69 (81) 100 Nasal Cannula 2.00 06/21/18 09:24 97 Nasal Cannula 2.00 06/21/18 09:23 97 94/61 (72) 06/21/18 09:00 Nasal Cannula 2.00 06/21/18 07:50 Nasal Cannula 2.00 06/21/18 07:50 84 99/64 (76) I & O 06/22/18 07:00 Intake Total 1000 ml Output Total 925 ml Balance 75 ml Height & Weight Height: 5'4.00" Weight: 263lbs. 1.6oz. 119.141013lm; 45.0 BMI Method:Stated General Appearance: No Apparent Distress, WD/WN, Chronically ill, Obese HEENT: PERRL/EOMI, Normal ENT Inspection, Pharynx Normal Neck: Full Range of Motion, Normal Inspection, Non Tender, Supple, Carotid Bruit Respiratory: Chest Non Tender, Lungs Clear, Normal Breath Sounds, No Accessory Muscle Use, No Respiratory Distress Cardiovascular: Regular Rate, Rhythm, No Gallop, No JVD, No Murmur, Normal Peripheral Pulses Extremity: Pedal Edema Neurologic/Psychiatric: Alert, Oriented x3, No Motor/Sensory Deficits, Normal Mood/Affect Skin: Normal Color, Warm/Dry Lymphatic: No Adenopathy Results Lab Laboratory Tests 06/21/18 06:30 06/21/18 10:52 Assessment/Plan Assessment/Plan Debility/myopathy secondary to extended hospital stay -Rehab Chronic respiratory failure including hypoxia -Oxygen - currently 2 liters -out patient PFT - PA/Lat CXR reviewed Anemia -monitor -Occult stools Gastric antral vascular ectasia -Dx at Afib- chronic CAD -Cardiology following BRISEIDA IBRAHIM DO Jun 22, 2018 07:21
--- NOTE | 2018-06-22 07:56 | Individualized Plan of Care ---
"Individualized Plan of Care Rehab Nursing IPOC Order Admission Date Jun 18, 2018 at 13:15 Current Orders Orders Pt Evaluate/Treat Request (06/18/18 13:04) Request Ot Evaluate & Treat (06/18/18 13:04) Request For Cognitive Services (06/18/18 13:04) Request For Dysphagia Services (06/18/18 13:04) Admission Arrival Bed Request (06/18/18 13:13) Patient Visit (06/18/18 ) Speech Sound Lang Comp (06/18/18 ) Cbc No Diff (06/19/18 06:00) Comprehensive Metabolic Panel (06/19/18 06:00) Acetaminophen Tablet/Caplet (Tylenol T (06/18/18 16:00) Aspirin Enteric Coated Tablet (Ecotrin T (06/19/18 09:00) Folic Acid Tablet (Folic Acid Tablet) (06/19/18 09:00) Furosemide Tablet (Lasix Tablet) (06/19/18 09:00) Insulin Nph Human (Per Unit) (Novolin N (06/19/18 09:00) Tizanidine Tablet (Zanaflex Tablet) (06/18/18 16:00) Tramadol Tablet (Ultram Tablet) (06/18/18 16:00) (Nf) Cetirizine Hcl (Zyrtec) (06/19/18 09:00) (Nf) Diphenhydramine Hcl (Benadryl) (06/18/18 16:00) (Nf) Insulin Aspart (Novolog Flexpen) (06/18/18 16:00) (Nf) Levothyroxine Sodium (06/19/18 09:00) (Nf) Metoprolol Tartrate (06/18/18 21:00) (Nf) Nitroglycerin (Nitrostat) (06/18/18 16:00) (Nf) Omeprazole (06/18/18 21:00) (Nf) Ondansetron Hcl (06/18/18 16:00) (Nf) Potassium Chloride (06/19/18 09:00) (Nf) Sennosides/Docusate Sodium (Senna S (06/18/18 21:00) Acetaminophen Tablet (Tylenol Tablet) (06/18/18 16:00) Alprazolam Tablet (Xanax Tablet) (06/18/18 16:00) Calcium Carbonate Chew Tablet (Antacid C (06/18/18 16:00) Diphenhydramine Tablet (Benadryl Tablet) (06/18/18 16:00) Docusate Sodium Capsule (Colace Capsule) (06/18/18 16:00) Guaifenesin/Codeine Syrup (Robitussin Ac (06/18/18 16:00) Loperamide Capsule (Imodium Capsule) (06/18/18 16:00) Melatonin Tablet (Melatonin Tablet) (06/18/18 16:00) Ondansetron Oral Dissolve Tab (Zofran (06/18/18 16:00) Consult Pulmonology (06/18/18 15:58) Consult Cardiology (06/18/18 15:58) Consult Oncology/Hematology (06/18/18 15:58) Loratadine Tablet (Claritin Tablet) (06/19/18 09:00) Diphenhydramine Tablet (Benadryl Tablet) (06/18/18 16:15) Insulin Aspart (Novolog) (Novolog (Charg (06/18/18 16:15) Pantoprazole Tablet (Protonix Tablet) (06/18/18 21:00) Potassium Chloride (Tablet) (K Dur Table (06/19/18 07:00) Ondansetron Oral Dissolve Tab (Zofran O (06/18/18 16:15) Metoprolol Tartrate (Ir) Tab (Lopressor (06/18/18 21:00) Nitroglycerin 0.4 Mg Btl 25's (Nitrostat (06/18/18 16:15) Levothyroxine Tablet (Synthroid Tablet) (06/19/18 06:30) Levothyroxine Tablet (Synthroid Tablet) (06/19/18 06:30) Senna S Tablet (Senokot S Tablet) (06/18/18 21:00) Cho 60g/M 1snack (16-2000 Brian) (06/18/18 Dinner) Cbc With Automated Diff (06/19/18 07:00) Ferritin (06/19/18 05:00) Ambulate 08,12,20 (06/18/18 19:11) Sequential Compression Device 08,20 (06/18/18 19:11) Dvt/Vte Risk - Notifiy Physici 08 (06/18/18 19:11) Request Ot Evaluate & Treat (06/18/18 20:02) Rt Request For Service (06/19/18 08:08) Patient Visit (06/18/18 ) Pt Eval Moderate Complexity (06/18/18 ) Gait Training, Ea 15 Min (06/18/18 ) Functional Activities, Ea 15 (06/18/18 ) Patient Visit (06/19/18 ) Gait Training, Ea 15 Min (06/19/18 ) Furosemide Tablet (Lasix Tablet) (06/19/18 10:15) Furosemide Tablet (Lasix Tablet) (06/20/18 09:00) Insulin Aspart (Novolog) (Novolog (Charg (06/19/18 11:00) Ekg Tracing (06/19/18 11:07) Digoxin Tablet (Lanoxin Tablet) (06/19/18 11:45) Digoxin Tablet (Lanoxin Tablet) (06/20/18 09:00) Telemetry Nursing Assessment ( (06/19/18 11:44) Chest Pa/Lat (2 View) (06/19/18 15:41) Metoprolol Tartrate (Ir) Tab (Lopressor (06/20/18 21:00) Cbc With Automated Diff (06/21/18 06:00) Comprehensive Metabolic Panel (06/21/18 06:00) Nursing Communication (Order) (06/20/18 13:29) Hemoglobin And Hematocrit (06/21/18 08:19) Occult Blood Stool (06/21/18 08:19) BNP (06/21/18 08:20) Type And Screen (06/21/18 08:19) Red Cells Leukocytes Reduced (06/21/18 08:19) Blood Trans|Repeat Hgb After U (06/21/18 ) Cho 60g/M 1snack (16-2000 Brian) (06/21/18 Lunch) Patient Visit (06/21/18 ) Exercise Therap, Ea 15 Min (06/21/18 ) Functional Activities, Ea 15 (06/21/18 ) Implanted Port: Access (06/21/18 16:47) Consult General Surgery (06/21/18 17:08) Rehab Nursing Orders: Ongoing Assess. of Function Status, Disease Management & Educaiton, Fluid/Electrolyte/Nutrition Mgmt, Management of Risks & Complications , Pain Management PT IPOC Problem List: Activity Tolerance, Functional Strength, Safety, Balance, Gait, Transfer, Bed Mobility Treatment Plan: Continue Plan of Care Bed Mobility, Concurrent Therapy, Education, Functional Activity Tamy, Functional Strength, Group Therapy, Gait, Safety, Therapeutic Exercise, Transfers Treatment Duration: Jul 09, 2018 Frequency: At least 5 of 7 days/Wk (IRF) Estimated Hrs Per Day: 1.5 hours per day OT IPOC Problems: Decreased Activ Tolerance, Decreased UE Strength, Dependent Transfers , Impaired I ADL's, Impaired Self-Care Skills, Restricted Funct UE ROM OT Treatment, Training and Edu: Yes OT Problems Pt demonstrates decreased activity tolerance, strength, mobility, and ADL functioning. Pt to benefit from skilled OT intervention for ADL training, transfers, strengthening, and home safety education to increase functional independence and allow safe discharge home. Plan of Care: ADL Retraining, Functional Mobility, Group Exercise/Act as Ind, UE Funct Exercise/Act Treatment Duration: Jul 09, 2018 Frequency: At least 5 of 7 days/Wk (IRF) Estimated Hrs Per Day: 1.[address] IPOC Speech Therapy Treatment Plan: Continue Plan of Care Treatment Duration: Jun 18, 2018 Frequency: 1 time per week Estimated Hrs Per Day: .25 hour per day Dietitian/Shipping Support Clerk Dietitian/Shipping Support Clerk to monitor nutritional status and make changes and/or recommendations as needed and work with speech pathology on dietary upgrades as the occur. Neuropsychology/Psychology Dr Emir Sosa/Ania Snow Physician IPOC Medical Issues being managed closely and that require the 24 hour availability of a physician: Medical Issues: DVT Prophylaxis Brief Synthesis of Preadmission Screen, Post-Admission Evaluation, and Therapy Evaluations: Medical Prognosis: Good Anticipated Length of Stay: 14 Return to independent living MICHELLE GARCIA DO Jun 22, 2018 07:56"
--- NOTE | 2018-06-22 07:57 | PM&R Progress Note ---
Subjective HPI/CC On Admission Date Seen by Provider: Jun 22, 2018 Time Seen by Provider: 08:00 Patient doing very well today Blood sugar was low last night so held insulin Willing to do a NovoLog sliding scale Denies any pain Lower extremity edema will require additional diuresis Appreciate cardiology, hematology, pulmonology consultation Maintained on 2 L of oxygen Bowels are moving Blood pressure stable Has no other issues Family just came to visit when I was completing my exam Subjective/Events-last exam Patient will have Gro[place]ong port placed by Dr. Holt today due to poor vascular access Wide Moe wraps are helping with the edema Complained of shoulder pain so will await chest x-ray once port is placed to assure that there is no significant abnormality that would require in depth imaging Feels like her progress is slow but she is participating in all therapies as required Blood sugars are reasonable Reports that she has some abrasions on her left leg that appeared to be somewhat of a surgical in nature but only appears superficial so I am unsure what that was from during the critical illness at but it does not appear to be infected. Set to receive transfusion per Dr. Haywood orders if less than hemoglobin of 8. Review of Systems General: Fatigue Pulmonary: Dyspnea Cardiovascular: Edema Gastrointestinal: Other (loss of appetite) Objective Exam Vital Signs Vital Signs Date Time Temp Pulse Resp B/P (MAP) Pulse Ox O2 Delivery O2 Flow Rate FiO2 06/22/18 17:52 97.9 88 18 127/74 96 06/22/18 17:40 Nasal Cannula 2.00 Capillary Refill : General Appearance: No Apparent Distress, WD/WN, Chronically ill, Obese Neck: Full Range of Motion, Normal Inspection, Non Tender, Supple, Carotid Bruit Respiratory: Chest Non Tender, Lungs Clear, Normal Breath Sounds, No Accessory Muscle Use, No Respiratory Distress, Decreased Breath Sounds Cardiovascular: Regular Rate, Rhythm, No Gallop, No JVD, No Murmur, Normal Peripheral Pulses Extremity: Pedal Edema Neurologic/Psychiatric: Alert, Oriented x3, No Motor/Sensory Deficits, Normal Mood/Affect, Motor Weakness (4/5 all extremities) Results/Procedures Lab Patient resulted labs reviewed. 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 Haywood has received 50 units of blood over the past 1 year and needs ablation on gastric bleeder Type II diabetes mellitus Chronic GI bleeding CAD Previous bypass Hyperlipidemia Hypothyroidism History of hepatitis B COPD Thrombocytopenia Chronic renal insufficiency Hypertension Long's esophagus Chronic diastolic heart failure Morbid obesity Edema requiring Lasix with K+ and wide MOE wraps Left pleural effusion Poor venous access requiring Groshong port placement today per Dr Holt Plan: BB 50 BID with Dig Appreciate Gwendolyn Dumont, Sheila on this complex renal case manager labs every other day per Dr Field Wide moe wraps to lower legs to facilitate edema resolution Therapies Port placement today Transfusion for hgb < 8.0 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 (3) Atrial fibrillation Status: Chronic Qualifiers: Atrial fibrillation type: paroxysmal Qualified Codes: I48.0 - Paroxysmal atrial fibrillation (4) Hypothyroidism Status: Chronic Qualifiers: Hypothyroidism type: acquired Qualified Codes: E03.9 - Hypothyroidism, unspecified (5) Coronary artery disease Status: Chronic Qualifiers: Coronary Disease-Associated Artery/Lesion type: [place] artery [place] vs. transplanted heart: [place] heart Associated angina: without angina Qualified Codes: I25.10 - Atherosclerotic heart disease of [place] coronary artery without angina pectoris (6) Hypertension Status: Chronic Qualifiers: Hypertension type: essential hypertension Qualified Codes: I10 - Essential (primary) hypertension (7) GI bleeding Status: Chronic (8) Transfusion-dependent anemia Status: Chronic (9) Type 2 diabetes mellitus with hyperglycemia Status: Chronic Qualifiers: Diabetes mellitus senior care insulin use: with senior care use Qualified Codes : E11.65 - Type 2 diabetes mellitus with hyperglycemia; Z79.4 - care home ( current) use of insulin (10) Oxygen dependent Status: Chronic (11) Loss of weight Status: Acute (12) Hypoxia Status: Chronic (13) CKD (chronic kidney disease) Status: Chronic (14) Portal hypertension Status: Chronic (15) Edema Status: Acute Qualifiers: Edema type: generalized Qualified Codes: R60.1 - Generalized edema (16) Port-A-Cath in place Status: Acute (17) Poor venous access Status: Acute Clinical Quality Measures Admission Status Admission Dx Assessment: Critical illness myopathy with severe debilitating requiring inpatient rehabilitation prior to going home to return to independent living Hypoxia requiring 2 L of oxygen supplementation 05/01 Paroxysmal atrial fibrillation Transfusion dependent anemia managed by Dr. Haywood Type II diabetes mellitus Chronic GI bleeding CAD Previous bypass Hyperlipidemia Hypothyroidism History of hepatitis B COPD Thrombocytopenia Chronic renal insufficiency Hypertension Long's esophagus Chronic diastolic heart failure Morbid obesity Plan: Continue diuresis of 80 mg Lasix by mouth daily Evaluate cardiac meds per Dr. Sheila Field evaluation and management of transfusion-dependent anemia Appreciate pulmonology consultation for hypoxemia and maintain oxygen DVT/VTE Risk/Contraindication: Risk Factor Score Per Nursin RFS Level Per Nursing on Admit: 4+=Very High MICHELLE GARCIA DO Jun 22, 2018 07:57
[2018-06-22] MEDS: LEVOTHYROXINE 25 MCG (LEVOTHROID) TAB PO SCH (08:45)
[2018-06-22] MEDS: LORATADINE (CLARITIN) 10 MG TAB PO SCH (08:45)
[2018-06-22] MEDS: LEVOTHYROXINE 150 MCG (LEVOTHROID) TAB PO SCH (08:45)
[2018-06-22] MEDS: PANTOPRAZOLE 40 MG (PROTONIX) TAB PO SCH ×2 (08:45→20:21)
[2018-06-22] MEDS: ASPIRIN E.C. 81 MG (ECOTRIN) TAB PO SCH (08:46)
[2018-06-22] MEDS: FOLIC ACID 1 MG TAB PO SCH (08:46)
[2018-06-22] MEDS: KCL 20 MEQ TAB (K-DUR) PO SCH (08:46)
[2018-06-22] MEDS: inSUlin NPH (NovoLIN N) 1 UNIT/0.01 ML (CHARGE PER UNIT) SQ SCH (09:21)
--- NOTE | 2018-06-22 09:35 | NUR ---
C/O left shoulder pain. No new orders rec'd. States that Dr. Holt will order a CXR after port placement. Will wait for that. Addendum: 06/23/18 at 1936 by MAK KEEN RN Dr. Morrell notified.*
[2018-06-22] MEDS: FUROSEMIDE 40 MG (LASIX) TAB PO SCH (10:11)
[2018-06-22] MEDS: DIGOXIN 0.125 MG (LANOXIN) TAB PO SCH (10:11)
[2018-06-22] MEDS: meTOprolol TARTRATE 50 MG (LOPRESSOR) TAB PO SCH (10:11)
[2018-06-22] MEDS: ACETAMINOPHEN 325 MG TABLET PO PRN (10:12)
--- NOTE | 2018-06-22 10:17 | NUR ---
C/O left shoulder pain, 02/22. Requesting Tylenol. Dr. Holt notified with orders to ask anesthesia. Anesthesia called. Ok to give Tylenol with sip of water. Also, ok to give Lopressor and Digoxin.
--- NOTE | 2018-06-22 10:27 | Occupational Ther Daily Note ---
OT Current Status-Daily Note Subjective Pt. reports being sore in left shoulder, mainly with external rotation. Does not report pain level. Nursing is notified. Appearance Pt. is up in chair. Pt. is supposed to have port placed soon. Nursing notifies OT that pt. will need to be in gown for port placement. However, appointment is not until the afternoon, so pt. agrees to get dressed. States that she is not feeling well overall, as she is just very fatigued. Pt. declines showering and spongebathing. Mental Status/Objective Patient Orientation: Person, Place, Time, Situation Therapy Code Descriptions/Definitions Functional [place] Measure: 0=Not Assessed/NA 4=Minimal Assistance 1=Total Assistance 5=Supervision or Setup 2=Maximal Assistance 6=Modified [place] 3=Moderate Assistance 7=Complete [place] ADL-Treatment Therapy Code Descriptions/Definitions Functional [place] Measure: 0=Not Assessed/NA 4=Minimal Assistance 1=Total Assistance 5=Supervision or Setup 2=Maximal Assistance 6=Modified [place] 3=Moderate Assistance 7=Complete [place] Therapy Quality Codes: 6 Independent with activity with or without an assistive device 5 Patient requires set up or clean up by helper. Patient completes activity by themselves 4 Supervision or touching assist (CGA). [place] provide cues , steadying assist 3 The helper provides less than half the effort to complete the activity 2 The helper provides more than half the effort to complete the activity 1 Dependent. The helper does all the effort to complete an activity 7 Patient refused to complete or attempt activity 9 The patient did not perform the activity before the current illness or injury 88 Not attempted due to Medical conditions or safety concerns Grooming (FIM): 5 (Set up in wheelchair at sink to brush hair and teeth.) Oral Hygiene (QC): 5 Upper Body (FIM): 4 (Pt. requires assistance to don bra, as she is unable to externally rotate left arm to fasten.) Upper Body Dressing (QC): 4 Lower Body Dressing (FIM): 3 (Pt. utilizes AE to don LE clothing. Requires assistance to don jeans over feet using DS. OT has already wrapped bilateral LE with bandar wraps due to swelling per physician. Pt. attempted to use sock aide to don socks, but had difficulty with them due to bandar wraps. OT placed elastic laces in shoes and assisted pt. with donning them, as pt.'s feet are swollen. ) Lower Body Dressing (QC): 3 On/Off Footwear (QC): 2 Transfers (B, C, W/C) (FIM): 4 (CGA sit-stand.) Other Treatment Pt. transferred to wheelchair after dressing tasks. Completed grooming at wheelchair level in bathroom. Attempted to self propel wheelchair to therapy gym, but had difficulty due to left shoulder issues and feet not fully touching ground. OT monitored vitals throughout treatment with 2 L 02 on. Sats at 100% with oxygen on, but drop to 88% when taking it off for approximately 5 minutes. BP at 107/70, 100/64, 107/67 throughout treatment. Pt. participated in armbike task using right UE only. 2 sets of 5 minutes each tolerated at slow pace. All needs met. Education OT Patient Education: Correct positioning, Modified ADL techniques, Progress toward Goal/Update tx plan, Purpose of tx/functional activities, Reviewed precautions, Rehab process, Transfer techniques, Use of adapted equipment Teaching Recipient: Patient Teaching Methods: Demonstration, Discussion Response to Teaching: Verbalize Understanding, Return Demonstration OT Short Term Goals Short Term Goals Time Frame: Jun 25, 2018 Lower Body Dressing(FIM): 5 Toileting(FIM): 5 Transfers (B,C,W/C) (FIM): 4 Toilet/Commode Transfer(FIM): 5 1=Demonstrate adherence to instructed precautions during ADL tasks. 2=Patient will verbalize/demonstrate understanding of assistive devices/ modifications for ADL. 3=Patient will improve strength/tolerance for activity to enable patient to perform ADL's. OT Fci Goals Fci Goals Time Frame: Jul 09, 2018 Eating (FIM): 6 Eating (QC): 6 Groomin Oral Hygiene (QC): 6 Bathing(FIM): 6 Shower/Bathe Self (QC): 6 Upper Body Dressing(FIM): 6 Upper Body Dressing (QC): 6 Lower Body Dressing(FIM): 6 Lower Body Dressing (QC): 6 On/Off Footwear (QC): 6 Toileting(FIM): 6 Toileting Hygiene (QC): 6 Toilet/Commode Transfer(FIM): 6 Toilet/Commode Transfer (QC): 6 Shower Transfer(FIM): 5 Additional Goals: 1-Demonstrate ADL Tasks, 2-Verbalize Understanding, 3- ImproveStrength/Tamy 1=Demonstrate adherence to instructed precautions during ADL tasks. 2=Patient will verbalize/demonstrate understanding of assistive devices/ modifications for ADL. 3=Patient will improve strength/tolerance for activity to enable patient to perform ADL's. OT Education/Plan Problem List/Assessment Assessment: Decreased Activ Tolerance, Decreased UE Strength, Impaired I ADL's , Impaired Self-Care Skills, Restricted Funct UE ROM Pt demonstrates decreased activity tolerance, strength, mobility, and ADL functioning. Pt to benefit from skilled OT intervention for ADL training, transfers, strengthening, and home safety education to increase functional independence and allow safe discharge home. Discharge Recommendations Plan/Recommendations: Continue POC Therapy D/C Recommendations: Home w/ Family Support, Occupational Therapy Home Care Equpiment Recommendations-D/C: Hip Kit Treatment Plan/Plan of Care Treatment,Training & Education: Yes Patient would benefit from OT for education, treatment and training to promote independence in ADL's, mobility, safety and/or upper extremity function for ADL' s. Plan of Care: ADL Retraining, Functional Mobility, Group Exercise/Act as Ind, UE Funct Exercise/Act Treatment Duration: Jul 09, 2018 Frequency: At least 5 of 7 days/Wk (IRF) Estimated Hrs Per Day: 1.5 hours per day Agreement: Yes Rehab Potential: Fair Time/GCodes Start Time: 08:30 Stop Time: 10:00 Total Time Billed (hr/min): 90 Billed Treatment Time 1, ADL x 60minutes, FA x 15minutes, Ex x 15minutes SANDRA COMER OT Jun 22, 2018 10:27
[2018-06-22] MEDS ORDERED: LACTATED RINGERS 1,000 ML IV PRN (11:02)
[2018-06-22] MEDS ORDERED: ONDANSETRON 4 MG/2 ML (SDV) Z0FRAN IV ONE (11:15)
[2018-06-22] MEDS ORDERED: FAMOTIDINE 20MG/2ML IV (PEPCID) IV ONE (11:15)
--- NOTE | 2018-06-22 11:16 | NUR ---
Spoke to Anesthesia. Informed that patient has no IV access. Orders to disregard IV Pepcid and IV Zofran. Anesthesia will start an IV they take patient down for surgery. Addendum: 06/22/18 at 1442 by MAK KEEN RN Anesthesia will start an IV when they take patient down for surgery.*
--- NOTE | 2018-06-22 11:41 | Physical Therapy Daily Note ---
PT Daily Note-Current Subjective Pt sitting in [facility] as OT propels back to Therapy Commons area upon arrival. Pt reports fatigue and feeling weak today. Pt will receive port today so blood can be given. Pt agrees to PT but does report ache in L shoulder that pt feels is from pulling self up using bed rails in bed. Mental Status Patient Orientation: Person, Place, Time, Situation Attachments: Oxygen (2L), Other-See Comments (Moe wrap for compression on BLE) Transfers Therapy Code Descriptions/Definitions Functional [place] Measure: 0=Not Assessed/NA 4=Minimal Assistance 1=Total Assistance 5=Supervision or Setup 2=Maximal Assistance 6=Modified [place] 3=Moderate Assistance 7=Complete [place] Therapy Quality Codes: 6 Independent with activity with or without an assistive device 5 Patient requires set up or clean up by helper. Patient completes activity by themselves 4 Supervision or touching assist (CGA). [place] provide cues , steadying assist 3 The helper provides less than half the effort to complete the activity 2 The helper provides more than half the effort to complete the activity 1 Dependent. The helper does all the effort to complete an activity 7 Patient refused to complete or attempt activity 9 The patient did not perform the activity before the current illness or injury 88 Not attempted due to Medical conditions or safety concerns Scootin Supine to/from Sit: 5 Sit to/from Stand: 6 Sit to Lying (QC): 4 Sit to Stand (QC): 6 Chair/Ema-fa-Vmzkv Xfer(QC): 5 Bed to/from Chair: 5 Weight Bearing Right Lower Extremity: Right Weight Bearing/Tolerated Left Lower Extremity: Left Weight Bearing/Tolerated Wheelchair Training Does the Pt Use a Wheelchair?: Yes Wheelchair Distance: 3=150 ft Distance: 150' Wheelchair Level of Assist: 5 Wheel 50 ft with 2 turns (QC): 5 Wheel 150 ft (QC): 5 Type of Wheelchair: Manual Exercises Seated Therapy Exercises: Ankle pumps, Long arc quads, Hip flexion, Kicking activity, Hip abd/add Seated Reps: 20 (2 sets of 20 reps) Treatments Pt's BP is taken (117/71, P- 105). Pt receives meds from Nurse after confirming with Surgeon ok due to NPO. Pt propels [facility] to Therapy Gym. Pt rests then completes Seated Ex. As pt takes another rest break, Anesthesia Nurse arrives to ask pre-surgery questions in prep for port this afternoon. Pt then completes a 2nd second round of Seated Ex. Pt then completes a couple standing attempts at //bars of a couple minutes each with rest break in between. Pt reports feeling fatigued so AUDITOR propels WCH back to room. Pt transfers from WCH to standing to complete SPT to EOB. Pt redresses in gown for Nurse in anticipation of port. Pt then lays Supine in bed with assistance from AUDITOR to lift BLE into bed. Pt resting Supine in bed with all needs met, Nurse present to take Blood Sugar at end of tx. Assessment Current Status: Fair Progress Pt fatigues easily, reports feeling tired. Pt to receive blood after port is placed this afternoon. PT Short Term Goals Short Term Goals Time Frame: Jun 25, 2018 Transfers (B,C,W/C) (FIM): 4 Gait (FIM): 1 Gait Distance Comment: 25' Gait Level of Assist: 4 Gait Assistive Device: FWW PT Nursing Home Goals Customer Account Representative Goals PT Customer Account Representative Goals Time Frame: Jul 09, 2018 Transfers (B,C,W/C) (FIM): 5 Sit to Lying (QC): 4 Lying-Sitting on Side/Bed(QC): 4 Sit to Stand (QC): 4 Rollin Roll Left to Right (QC): 4 Chair/Goi-uy-Jzyjy Xfer(QC): 4 Car Transfer (QC): 4 Gait (FIM): 2 Distance: 50' Walk 10 feet (QC): 4 Walk 10ft-Uneven Surface(QC): 4 Walk 50ft with 2 Turns (QC): 4 Gait Level of Assist: 5 Gait Assistive Device: FWW Stairs (FIM): 1 # of Steps: 1 1 Step (curb) (QC): 4 Stairs Level Of Assist: 4 PT Plan Problem List Problem List: Activity Tolerance, Functional Strength, Safety, Balance, Gait, Transfer Treatment/Plan Treatment Plan: Continue Plan of Care Treatment Plan: Bed Mobility, Concurrent Therapy, Education, Functional Activity Tamy, Functional Strength, Group Therapy, Gait, Safety, Therapeutic Exercise, Transfers Treatment Duration: Jul 09, 2018 Frequency: At least 5 of 7 days/Wk (IRF) Estimated Hrs Per Day: 1.5 hours per day Patient and/or Family Agrees t: Yes Safety Risks/Education Patient Education: Transfer Techniques, Correct Positioning, W/C Management, Safety Issues Teaching Recipient: Patient Teaching Methods: Discussion Response to Teaching: Verbalize Understanding Time/GCodes Time In: 1000 Time Out: 1130 Total Billed Treatment Time: 90 Total Billed Treatment 1, WCH (15m), EX x2 (30m), FA x3 (45m) G Codes Necessary: MARY ANN Real AUDITOR Jun 22, 2018 11:41
--- NOTE | 2018-06-22 13:14 | NUR ---
Dr. Jorge here to see patient. Informed of hypotension yesterday. Orders to decrease Lopressor to 25 MG PO BID.
--- NOTE | 2018-06-22 13:14 | Consultation ---
History of Present Illness History of Present Illness Patient Consulted On(ken/time) 06/22/18 13:08 Date Seen by Provider: Jun 22, 2018 Time Seen by Provider: 13:09 History of Present Illness consult requested by Dr. Haywood for port placement. patient is a 62 year old female with history of chronic anemia requiring blood transfusion. She has poor venous access and needing access for further management. Patient does not want picc or midline and wanting port to be placed. she is in rehab after hospitalization at . She was previously planned for port but then was hospitalized. She understands risks and benefits she states. She notes edema still, but overall doing better since last hospitalization. Allergies and Home Medications Allergies Coded Allergies: Aplalde-Ldx-Egp Reductase Inhibitor (Verified Allergy, Intermediate, GI UPSET, N/V, 11/06/17) cefadroxil (Unverified Allergy, Mild, 01/01/17) Sulfa (Sulfonamide Antibiotics) (Verified Allergy, Unknown, 06/18/18) Home Medications Acetaminophen 325 Mg Tablet, 650 MG PO Q6H PRN for PAIN-MILD, (Reported) Aspirin 81 Mg Tablet.dr, 81 MG PO DAILY, (Reported) Cetirizine HCl 10 Mg Tablet, 10 MG PO DAILY, (Reported) Diltiazem HCl 180 Mg Capsule.er, 180 MG PO DAILY, (Reported) Diphenhydramine HCl 25 Mg Capsule, 25 MG PO Q6H PRN for ALLERGIES, (Reported) Folic Acid 1 Mg Tablet, 1 MG PO DAILY, (Reported) Furosemide 40 Mg Tablet, 40 MG PO DAILY, (Reported) Insulin Aspart 300 Units/3 Ml Solution, 4 UNITS SQ TIDAC, (Reported) Insulin NPH Human Isophane 100 Unit/1 Ml Vial, 14 UNIT SQ DAILY, (Reported) Levothyroxine Sodium 175 Mcg Tablet, 175 MCG PO DAILY, (Reported) Metoprolol Tartrate 100 Mg Tablet, 100 MG PO BID, (Reported) Nitroglycerin 0.4 Mg Tab.subl, 0.4 MG SL UD PRN for CHEST PAIN, (Reported) Omeprazole 40 Mg Capsule.dr, 40 MG PO BID, (Reported) Ondansetron HCl 8 Mg Tablet, 8 MG PO Q8H PRN for NAUSEA/VOMITING-1ST LINE, ( Reported) Potassium Chloride 20 Meq Tablet.er, 20 MEQ PO DAILY, (Reported) Sennosides/Docusate Sodium 1 Each Tablet, 1 TAB PO HS, (Reported) Tizanidine HCl 4 Mg Tablet, 4 MG PO TID PRN for MUSCLE SPASMS, (Reported) Tramadol HCl 50 Mg Tablet, 50 MG PO TID PRN for PAIN-MODERATE, (Reported) Patient Home Medication List Home Medication List Reviewed: Yes Past Xrpxvul-Hwyvul-Psuetn Hx Patient Social History Alcohol Use: Denies Use Recreational Drug Use: No Smoking Status: Former Smoker Former Smoker, Quit: May 20, 1980 Type Used: Cigarettes Recent Foreign Travel: No Contact w/Someone Who Travel: No Recent Infectious Disease Expo: No Recent Hopitalizations: Yes Physical Abuse Screen: No Sexual Abuse: No Immunizations Up To Date Tetanus Booster (TDap): Unknown PED Vaccines UTD: Yes Date of Pneumonia Vaccine: Jun 23, 2016 Date of Influenza Vaccine: May 18, 2018 Seasonal Allergies Seasonal Allergies: Yes Surgeries History of Surgeries: Yes Surgeries: Adenoidectomy, Cardiac, CABG, Coronary Stent, Open Heart Surgery, Orthopedic, Tonsillectomy, Tubal Ligation Respiratory History of Respiratory Disorde: Yes (LEFT PLEURAL EFFUSION) Respiratory Disorders: Sleep Apnea Cardiovascular History of Cardiac Disorders: Yes (CHF, STENT X1; CABG 02/16/2018 x 4 @ [facility]) Cardiac Disorders: Atrial Fibrillation, Chronic Edema/Swelling, Coronary Artery Disease, Heart Attack, High Cholesterol, Hypertension Neurological History of Neurological Disord: Yes Reproductive System : No Hx Reproductive Disorders: No Sexually Transmitted Disease: No HIV/AIDS: No Female Reproductive Disorders: Denies DYE RANGE FEEDER History: Menopausal Genitourinary History of Genitourinary Disor: Yes Genitourinary Disorders: Renal Failure Gastrointestinal History of Gastrointestinal Di: Yes Gastrointestinal Disorders: Gastroesophageal Reflux, Gastrointestinal Bleed, Diverticulosis, Hemorrhoids, Polyps Musculoskeletal History of Musculoskeletal Dis: Yes (POOR AMBULATION--USES WALKER SINCE CABG) Musculoskeletal Disorders: Degenerate Disk Disease, Arthritis, Chronic Back Pain, Fractures Endocrine History of Endocrine Disorders: Yes Endocrine Disorders: Diabetes, Insulin dep HEENT History of HEENT Disorders: No Loss of Vision: Denies Hearing Impairment: Denies Cancer History of Cancer: No Psychosocial History of Psychiatric Problem: No Behavioral Health Disorders: Anxiety Integumentary History of Skin or Integumenta: Yes Skin/Integumentary Disorders: Psoriasis Blood Transfusions History of Blood Disorders: Yes (acute anemia) Adverse Reaction to a Blood Tr: Yes (Antibody JKA) Family Medical History Significant Family History: Hypertension, Stroke, Other Conditions/Hx Family Medial History: Arthritis G8 BROTHER Completed stroke 19 MOTHER FH: anemia 19 MOTHER FH: lupus G8 SISTER FH: throat cancer 19 FATHER Hypertension G8 SISTER Myocardial infarction 19 MOTHER Thyroid disease 19 MOTHER G8 SISTER Review of Systems-General Constitutional: no symptoms reported EENTM: no symptoms reported Respiratory: no symptoms reported Cardiovascular: no symptoms reported Genitourinary: no symptoms reported Musculoskeletal: no symptoms reported Skin: no symptoms reported Psychiatric/Neurological: No Symptoms Reported Physical Exam-General Problems Physical Exam Vital Signs Vital Signs - First Documented 06/18/18 13:50 Temp 98.2 Pulse 87 Resp 20 B/P (MAP) 118/62 (80) Pulse Ox 93 O2 Delivery Nasal Cannula O2 Flow Rate 4.00 Capillary Refill : General Appearance: no apparent distress HEENT: PERRL/EOMI Neck: supple Respiratory: no respiratory distress, no accessory muscle use Cardiovascular: regular rate, rhythm Gastrointestinal: non tender, soft Rectal: deferred Back: normal inspection Extremities: swelling Neurologic/Psychiatric: no motor/sensory deficits, alert, normal mood/affect, oriented x 3 Skin: warm/dry, pallor Lymphatic: no adenopathy Data Review Labs Laboratory Tests 06/21/18 16:53: Glucometer 155H 06/21/18 21:05: Glucometer 199H 06/22/18 06:01: Glucometer 171H 06/22/18 11:29: Glucometer 128H Assessment/Plan Assessment/Plan Assessment/Plan chronic anemia requiring transfusion poor venous access Hypoxia requiring oxygen Paroxysmal atrial fibrillation Type II diabetes mellitus CAD c history of bypass Hyperlipidemia Hypothyroidism History of hepatitis B COPD Thrombocytopenia Chronic renal insufficiency Hypertension Long's esophagus Chronic diastolic heart failure Morbid obesity discussed risks and benefits of port placement, she understands risks and benefits and will plan today NPO Clinical Quality Measures DVT/VTE Risk/Contraindication: Risk Factor Score Per Nursin RFS Level Per Nursing on Admit: 4+=Very High SABRINA ROSSI DO Jun 22, 2018 13:14
--- NOTE | 2018-06-22 13:27 | Cardiology Progress Note ---
Cardiology SOAP Progress Note Subjective: No cardiac complaints. Objective: I&O/Vital Signs 06/22/18 06/22/18 06/22/18 06:09 09:59 10:16 Temp 97.3 Pulse 90 105 Resp 20 B/P (MAP) 106/68 (81) 117/71 (86) Pulse Ox 95 O2 Delivery Nasal Cannula Nasal Cannula O2 Flow Rate 2.00 2.00 06/22/18 00:00 Intake Total 500 ml Output Total 500 ml Balance 0 ml Weight (Pounds): 263 Weight (Ounces): 0.0 Weight (Calculated Kilograms): 119.255817 Constitutional: No appears stated age, No AAO x 3, No apparent distress, No PERRL, No well-developed, No well-nourished, No other Respiratory: No accessory muscle use, No respiratory distress, No chest tender , No chest expansion is symmetric; chest is bilaterally symmetric; No lungs clear to percussion; lungs clear to auscultation; No crackles, No rhonchi, No rales, No stridor, No wheezing, No pleural rub, No other Cardiovascular: irregularly irregular; No extra beats, No parasternal heave is noted, No JVD, No edema, No bradycardia, No tachycardia, No point of maximal impulse, No cardiac thrills are palpable; S1 and S2; No gallop/S3, No gallop/S4 , No diastolic murmur, No systolic murmur, No friction rub, No click, No other Gastrointestional: No tender, No soft, No round, No distended, No pulsatile mass, No organomegaly, No guarding, No rebound, No tenderness, No hernia, No mass, No audible bowel sounds, No abnormal bowel sounds, No abdominal bruits, No spleenomegaly, No other Extremities: No normal range of motion, No non-tender, No normal inspection, No pedal edema, No calf tenderness, No normal capillary refill, No pelvis stable , No calf tenderness, No inflammation, No pedal edema, No slow capillary refill , No swelling, No other, No abrasion, No clubbing, No cyanosis, No ecchymosis, No laceration, No no lower extremity edema bilateral, No significant edema, No tenderness, No wound Neurologic/Psychiatric: no motor/sensory deficits, alert, normal mood/affect, oriented x 3 Skin: No normal color, No warm/dry, No cyanosis, No cool, No diaphoresis, No damp, No ecchymosis, No jaundice, No mottled, No pallor, No rash, No tattoos/ piercings, No ulcerations, No rash on exposed areas, No ulcerations on exposed areas, No other Results/Procedures: Labs Laboratory Tests 06/21/18 16:53: Glucometer 155H 06/21/18 21:05: Glucometer 199H 06/22/18 06:01: Glucometer 171H 06/22/18 11:29: Glucometer 128H A/P: Assessment/Dx: Admission Diagnosis sinus tachycardia Hypertension Coronary artery disease Chronic renal insufficiency Plan: Sinus tachycardia, multifactorial, history of paroxysmal atrial fibrillation. Borderline BP : decrease Lopressor to 25mg bid. Status post respiratory failure with pneumonia and UTI and sepsis. Improved, receiving physical therapy Debility and generalized weakness. Receiving physical therapy Anemia- worsening. Has been following with Dr. Field. Port to be placed today. Coronary artery disease, history of CABG 4 done in February 2018. Clinically stable. Continue to monitor History of paroxysmal atrial fibrillation, unable to tolerate oral anticoagulation due to recurrent GI bleed. Moderate size left pericardial effusion, persistent since the bypass surgery. Maintained on Lasix, continue to monitor. Congestive heart failure, chronic left ventricular diastolic dysfunction, secondary to hypertension. Continue to monitor Hypertension, controlled on current medication, continue to monitor History of hepatic cirrhosis, unknown etiology. Scheduled to see a rack worker as an outpatient History of esophageal paresis and gastritis. Followed and managed by primary care physician next History of GAVE History of ascites secondary to hepatic cirrhosis Status post pneumonia and UTI resulted in septic shock and encephalopathy Status post respiratory failure. Obesity, BMI 45 Thank you for your consultation. Please call me if you have any questions. Estela Jorge MD, FACP, FACC, FSCAI, FHRS, CCDS Interventional Cardiology Cardiac Electrophysiology Vascular Medicine and Endovascular Interventions Wei JORGE MD Jun 22, 2018 1:27 pm
[2018-06-22] MEDS ORDERED: PROPOFOL INJECTION 50 ML IV ONE (13:31)
[2018-06-22] MEDS ORDERED: HEParin (CENTRAL IV FLUSH) 500 UNIT/5 ML SYR ONE (13:41)
[2018-06-22] MEDS ORDERED: BUPIVACAINE 0.5% 30 ML (SENSORCAINE) VIAL ONE (13:41)
[2018-06-22] MEDS ORDERED: LIDOCAINE 1% INJ 20 ML 20 ML VIAL ONE (13:41)
[2018-06-22] MEDS ORDERED: 0.9% SODIUM CHLORIDE PF INJ 20 ML VIAL ONE (13:43)
[2018-06-22] MEDS ORDERED: ONDANSETRON 4 MG/2 ML (SDV) Z0FRAN ONE (14:05)
[2018-06-22] MEDS ORDERED: MIDAZOLAM 2 MG/2 ML (VERSED) VIAL ONE (14:06)
[2018-06-22] MEDS ORDERED: fentaNYL INJECTION 100 MCG/2 ML AMP ONE (14:07)
--- NOTE | 2018-06-22 14:31 | NUR ---
Patient down to OR per cart acc by staff.
[2018-06-22] MEDS ORDERED: LIDOCAINE PF 2% 5 ML (XYLOCAINE) VIAL ONE (14:37)
[2018-06-22] MEDS ORDERED: KETAMINE HCL 100 MG/ML 5 ML VIAL ONE (14:59)
[2018-06-22] MEDS ORDERED: CLINDAMYCIN 600 MG/4ML (CLEOCIN) VIAL ONE (15:24)
[2018-06-22] MEDS ORDERED: PHENYLEPHRINE 100 MCG/ML 10 ML (ANESTHESIA) SYR ONE (15:38)
--- NOTE | 2018-06-22 15:42 | NUR ---
Call to Dr. Field. Orders to give 1 unit of PRBC after port placement.
--- NOTE | 2018-06-22 15:52 | Progress Note-Post Operative ---
Post-Operative Progess Note Surgeon (s)/Clinical Evaluator (s) Surgeon SABRINA ROSSI DO Clinical Evaluator: na Pre-Operative Diagnosis anemia, poor venous access Post-Operative Diagnosis same Procedure & Operative Findings Date of Procedure 06/22/18 Procedure Performed/Findings right IJ u/s guided port placement Anesthesia Type mac c local Estimated Blood Loss Estimated blood loss (mL): min Specimens/Packing Specimens Removed na SABRINA ROSSI DO Jun 22, 2018 15:52
[2018-06-22] MEDS ORDERED: morphine INJ 10 MG/ML 1ML (SYR OR VIAL) IVP ONE (16:00)
[2018-06-22] MEDS ORDERED: ONDANSETRON 4 MG/2 ML (SDV) Z0FRAN IVP PRN (16:00)
--- NOTE | 2018-06-22 16:25 | Diagnostic Imaging Report ---
INDICATION: Status post port placement. COMPARISON: 06/19/2018. FINDINGS: Single frontal radiographic view of the chest was obtained and demonstrates interval placement of right-sided Port-A-Cath. A portion of the catheter extends superiorly beyond the [id number], but appearance suggests right internal jugular venous approach. Note is made that the central portion of the catheter terminates possibly within the lower internal jugular vein or within the junction of the innominate veins. There is no evidence of pneumothorax on either side. There has been interval increase in dense opacification of the left mid thorax consistent large effusion and associated infiltrate or atelectasis. No large effusion is seen on the right. Cardiac silhouette is obscured. Bony structures show no gross acute abnormalities. Sternotomy wires are noted. IMPRESSION: 1. New central venous catheter as described above. No pneumothorax. 2. Increasing left-sided effusion with probable associated atelectasis, although underlying infiltrate is not excluded. Dictated by: Dictated on workstation # [id number]
--- NOTE | 2018-06-22 16:25 | NUR ---
Patient back to floor. VSS. See intervention for details.
--- NOTE | 2018-06-22 16:30 | Anesthesia-General Post-Op ---
MAC Patient Condition Mental Status/LOC: Same as Preop Cardiovascular: Satisfactory Nausea/Vomiting: Absent Respiratory: Satisfactory Pain: Controlled Complications: Absent Post Op Complications Complications None Follow Up Care/Instructions Patient Instructions None needed. Anesthesiology Discharge Order Discharge Order Patient is doing well, no complaints, stable vital signs, no apparent adverse anesthesia problems. No complications reported per nursing. IMER ISLAS CRNA Jun 22, 2018 16:30
--- NOTE | 2018-06-22 16:33 | Diagnostic Imaging Report ---
Indication: Fluoroscopy for Groshong catheter placement. Fluoroscopy was provided in the OR during Groshong catheter placement. 43 seconds of fluoroscopy was utilized. Right sided catheter appears to have the tip overlying the SVC. Impression: Fluoroscopy for right port placement. Dictated by: Dictated on workstation # [id number]
[2018-06-22] MEDS ORDERED: NS IV 500 ML 500 ML ONE (16:59)
--- NOTE | 2018-06-22 17:00 | NUR ---
Ok to use port per Dr. Holt.
--- NOTE | 2018-06-22 19:10 | NUR ---
bedside report received from MAK MACKAY, assume care of pt
[2018-06-22] MEDS: MELATONIN 3 MG TABLET PO PRN (20:20)
[2018-06-22] MEDS: meTOprolol TARTRATE 25 MG (LOPRESSOR) TABLET PO SCH (20:21)
[2018-06-22] MEDS: SENNA W/DOCUSATE (SENOKOT S) TABLET PO SCH (20:21)
--- NOTE | 2018-06-22 20:25 | NUR ---
fsbs 157
--- NOTE | 2018-06-22 20:26 | NUR ---
blood infused in no s/s of reaction noted, v/s 97.2-96-20-99%-125/76, iv flushed, meds given
--- NOTE | 2018-06-22 21:00 | NUR ---
assessments & interventions completed, see assessments & interventions
--- NOTE | 2018-06-22 21:20 | NUR ---
to bathroom had large soft brown BM with streaks of blood on top of stool states has hemorrhoids, specimen sent to lab
--- NOTE | 2018-06-22 21:51 | NUR ---
c/o neck pain level 8/10 on numeric scale, Ultram 50mg & Zanaflex 2 mg po given
--- NOTE | 2018-06-22 22:21 | NUR ---
resting quietly in bed, pain level 0/10 on flacc scale
[2018-06-22 22:32] LABS: HEMOGLOBIN 8.2 G/DL (11.5-16.0)
--- NOTE | 2018-06-23 03:43 | OPERATIVE REPORT ---
DATE OF SERVICE: 06/22/2018 PREOPERATIVE DIAGNOSIS: Anemia and poor venous access. POSTOPERATIVE DIAGNOSIS: Anemia and poor venous access. PROCEDURE: Right internal jugular ultrasound-guided port placement. SURGEON: Sabrina Holt D.O. ANESTHESIA: MAC with local. ESTIMATED BLOOD LOSS: Minimal. COMPLICATIONS: None. INDICATIONS: The patient is a 62-year-old female with chronic anemia, requiring multiple blood transfusions. She has poor venous access and unable to get IVs. The patient has previously been scheduled for port but due to illness, unable to have performed at that time. The patient was in rehab and has been requested that a port be placed. She understands risks and benefits of procedure and wished to proceed with procedure. Consent was signed in the chart. PROCEDURE: The patient was taken to the operating suite. She was prepped and draped in sterile fashion. Surgical pause was performed. Local anesthetic was used to infiltrate around the right internal jugular vein. Ultrasound was used to locate the right internal jugular vein. Using ultrasound guidance, the right internal jugular vein was accessed with micro access needle. Dark nonpulsatile blood was withdrawn. Micro access wire was inserted through the needle and the needle was removed. Fluoroscopy assured proper placement. A #11 blade scalpel was used to make a stab incision at the insertion point. The micro access dilator and sheath were then advanced over the wire and the dilator and wire were removed. The normal guidewire was inserted through the sheath and the sheath was then removed. Fluoroscopy assured proper placement. The wire was secured. Local anesthetic was infiltrated in the neck and over the right chest for pocket creation and tunneling. A 15 blade scalpel was used to make an incision over the right chest. Cautery was used to create a pocket on the right chest and a dilator sheath was then advanced over the guidewire under fluoroscopy and the dilator and wire were removed. The Groshong catheter was inserted through the sheath and the sheath was then removed. The Groshong wire was removed. The catheter was then tunneled from the insertion point down to the right chest pocket. Fluoroscopy was used to cut the catheter length and then this was secured to the port in usual fashion and then placed within the pocket. The port was then accessed and withdrawn blood and flushed without difficulty, first with saline and then with heparin. The port was left accessed. The subcutaneous tissues were then reapproximated using 3-0 Vicryl. The area was then washed and dried. Skin Affix was placed over the incisions and the insertion point. The patient tolerated the procedure well without any complications. She was taken to recovery room in stable condition. Chest x-ray pending. Job ID: [id number] DocumentID: [id number] Dictated Date: 06/22/2018 16:24:25 Early Childhood Associate Teacher Date: 06/23/2018 03:42:47 Dictated By: SABRINA HOLT DO
[2018-06-23 05:45] VITALS: BP 109/64
[2018-06-23] MEDS: inSUlin ASPART (NovoLOG) 1 UNIT/0.01 ML (CHARGE PER UNIT) SC SCH ×4 (06:21→21:30)
[2018-06-23] MEDS: LEVOTHYROXINE 25 MCG (LEVOTHROID) TAB PO SCH (06:23)
[2018-06-23] MEDS: PANTOPRAZOLE 40 MG (PROTONIX) TAB PO SCH ×2 (06:23→21:40)
[2018-06-23] MEDS: LEVOTHYROXINE 150 MCG (LEVOTHROID) TAB PO SCH (06:23)
[2018-06-23] MEDS: KCL 20 MEQ TAB (K-DUR) PO SCH (06:23)
--- NOTE | 2018-06-23 07:08 | NUR ---
bedside report given to MAK MACKAY
[2018-06-23] MEDS: LORATADINE (CLARITIN) 10 MG TAB PO SCH (08:14)
[2018-06-23] MEDS: meTOprolol TARTRATE 25 MG (LOPRESSOR) TABLET PO SCH ×2 (08:15→21:40)
[2018-06-23] MEDS: ASPIRIN E.C. 81 MG (ECOTRIN) TAB PO SCH (08:15)
[2018-06-23] MEDS: FUROSEMIDE 40 MG (LASIX) TAB PO SCH (08:15)
[2018-06-23] MEDS: FOLIC ACID 1 MG TAB PO SCH (08:15)
[2018-06-23] MEDS: DIGOXIN 0.125 MG (LANOXIN) TAB PO SCH (08:15)
--- NOTE | 2018-06-23 08:15 | PM&R Progress Note ---
Subjective This was a face to face visit with the patient. Date Seen by Provider: Jun 23, 2018 Time Seen by Provider: 08:00 Subjective/Events-last exam In her room with nurse during rounds. Did receive 1 unit of packed red blood cells ordered by Dr. Haywood yesterday after port was placed by Dr. Holt in an uncomplicated fashion. Left shoulder x-ray will be obtained and Dr. Caal has graciously agreed to evaluate the left shoulder since it is limiting her range of motion and limiting therapies and strengthening. Dr. Snwo ordered several labs but we will not perform any procedure for the left pleural effusion like a thoracentesis because she had had a CT tube in the left side before which was very painful. 6 pound weight gain since yesterday but she did receive the 1 unit of blood and was given fluid During surgery for right anterior chest wall port placement. We are watching renal failure because creatinine is 1.5 today but needs diuresis for fluid overload and still about 20 pounds over her ideal weight baseline. She does not report any increased shortness of breath. is not changing anything and monitoring diuresis. Had a bypass February 2018 and has a walker from that. Physical therapy is limited due to edema so we will monitor that and aggressively treated with Lasix and watch creatinine and electrolytes. She is very motivated to get better. Her blood sugars are better Does not require speech therapy Difficulty wearing shoes because of the Moe wraps. Date Identified: Jun 23, 2018 Time Identified: 08:00 Medication Intervention: creat 1.5 will be monitored closely Review of Systems General: Fatigue Pulmonary: Dyspnea Cardiovascular: Edema Musculoskeletal: arm pain (left shoulder) Objective Physician Exam Last Set of Vital Signs Vital Signs Date Time Temp Pulse Resp B/P (MAP) Pulse Ox O2 Delivery O2 Flow Rate FiO2 06/23/18 05:45 97.8 89 18 109/64 (79) 96 Nasal Cannula 2.00 Capillary Refill : I&O Intake and Output 06/23/18 00:00 Intake Total 1250 ml Output Total 625 ml Balance 625 ml Intake Oral 930 ml IV Total 50 ml Other 270 ml Output Urine Total 625 ml # Voids 1 General: Alert, Oriented X3, Cooperative, No Acute Distress HEENT: Atraumatic, PERRLA, EOMI, Mucous Memb Moist/[place] Neck: Supple, No JVD, No Thyromegaly, +2 Carotid Pulse No Bruit, No LAD Lungs: Clear to Auscultation, Normal Air Movement, Other (diminished BS bases) Heart: Regular Rate, Normal S1, Normal S2 Abdomen: Normal Bowel Sounds, Soft, No Tenderness, No Hepatosplenomegaly, No Masses Extremities: No Clubbing, No Cyanosis, Other (edema noted lower legs) Skin: No Rashes, No Breakdown, No Significant Lesion Neuro: Normal Speech, Normal Tone, Sensation Intact, Cranial Nerves 3-12 NL, Reflexes 2+, Other (global weakness of all extremities 4/5) Psych/Mental Status: Mental Status NL, Mood NL Results Lab Data Laboratory Tests 06/20/18 10:21: Glucometer 114H 06/20/18 15:34: Glucometer 101 06/21/18 06:27: Glucometer 146H 06/21/18 06:30: White Blood Count 2.7L, Red Blood Count 2.44L, Hemoglobin 7.5L, Hematocrit 25L, Mean Corpuscular Volume 103H, Mean Corpuscular Hemoglobin 31, Mean Corpuscular Hemoglobin Concent 30L, Red Cell Distribution Width 15.1H, Platelet Count 116L, Mean Platelet Volume 10.0, Neutrophils (%) (Auto) 51, Lymphocytes (%) (Auto) 28 , Monocytes (%) (Auto) 11, Eosinophils (%) (Auto) 10, Basophils (%) (Auto) 0, Neutrophils # (Auto) 1.4L, Lymphocytes # (Auto) 0.7L, Monocytes # (Auto) 0.3, Eosinophils # (Auto) 0.3, Basophils # (Auto) 0.0, Sodium Level 140, Potassium Level 4.2, Chloride Level 94L, Carbon Dioxide Level 37H, Anion Gap 9, Blood Urea Nitrogen 18, Creatinine 1.63H, Estimat Glomerular Filtration Rate 32, BUN/ Creatinine Ratio 11, Glucose Level 138H, Calcium Level 8.5, Corrected Calcium 9.7, Total Bilirubin 0.5, Aspartate Amino Transf (AST/SGOT) 25, Alanine Aminotransferase (ALT/SGPT) 7, Alkaline Phosphatase 56, Total Protein 6.1L, Albumin 2.5L 06/21/18 10:52: Hemoglobin 8.3L, Hematocrit 28L, B-Type Natriuretic Peptide 300.7H 06/21/18 11:28: Glucometer 148H 06/21/18 16:53: Glucometer 155H 06/21/18 21:05: Glucometer 199H 06/22/18 06:01: Glucometer 171H 06/22/18 11:29: Glucometer 128H 06/22/18 16:46: Glucometer 116H 06/22/18 20:18: Glucometer 157H 06/22/18 21:40: Stool Occult Blood Immunoassay POSITIVEH 06/22/18 22:20: Hemoglobin 8.2L, Hematocrit 28L 06/23/18 06:15: Glucometer 209H Current Funtional Status Continue therapies although edema limits physical therapy and left shoulder pain limits occupational therapy Continue support for ADLs Will need home health at discharge but will need to evaluate her next Thursday as far as discharge plans She already has a walker at home from her bypass surgery in February 2018 I appreciate all consultants including Dr. Snow, , Dr. Haywood, and Dr. Caal. Dr. Haywood will discontinue aspirin due to significant bleeding with any type of antiplatelet or anticoagulation and she will be restarted on vitamin B12 supplements Assessment/Plan Assessment and Plan (1) Myopathy Status: Acute (2) 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 (3) Atrial fibrillation Qualifiers: Qualified Codes: I48.0 - Paroxysmal atrial fibrillation Status: Chronic (4) Hypothyroidism Qualifiers: Qualified Codes: E03.9 - Hypothyroidism, unspecified Status: Chronic (5) Coronary artery disease Qualifiers: Qualified Codes: I25.10 - Atherosclerotic heart disease of [place] coronary artery without angina pectoris Status: Chronic (6) Hypertension Qualifiers: Qualified Codes: I10 - Essential (primary) hypertension Status: Chronic (7) GI bleeding Qualifiers: Qualified Codes: K31.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 Status: Chronic (8) Transfusion-dependent anemia Status: Chronic (9) Type 2 diabetes mellitus with hyperglycemia Qualifiers: Qualified Codes: E11.65 - Type 2 diabetes mellitus with hyperglycemia; 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 Status: Chronic (10) Oxygen dependent Status: Chronic (11) Loss of weight Status: Acute (12) Hypoxia Status: Chronic (13) CKD (chronic kidney disease) Status: Chronic (14) Portal hypertension Status: Chronic (15) Edema Qualifiers: Qualified Codes: R60.1 - Generalized edema Status: Acute (16) Port-A-Cath in place Status: Acute (17) Poor venous access Status: Acute (18) Left shoulder pain Qualifiers: Qualified Codes: M25.512 - Pain in left shoulder (19) Hx of CABG Status: Chronic (20) B12 deficiency Status: Chronic (21) Contraindication to anticoagulation therapy Status: Chronic (22) Contraindication to antiplatelet therapy Status: Chronic Co-Morbidities that are continuing to impact the rehab process: (include details ) MICHELLE GARCIA DO Jun 23, 2018 08:15
[2018-06-23] MEDS: inSUlin NPH (NovoLIN N) 1 UNIT/0.01 ML (CHARGE PER UNIT) SQ SCH (08:21)
--- NOTE | 2018-06-23 08:30 | NUR ---
Dr. Holt here to see patient. Ok to change dressing to right port site.
[2018-06-23 08:33] VITALS: BP 126/66
--- NOTE | 2018-06-23 09:48 | NUR ---
Call to Dr. Caal to notify of consult for left shoulder pain. No answer. Message left.
--- NOTE | 2018-06-23 09:52 | NUR ---
Dr. Snow notified of chest XRAY results from 06/22/18.
--- NOTE | 2018-06-23 10:52 | Pulmonary Progress Note ---
Subjective Time Seen by a Provider: 06:39 Subjective/Events-last exam NO complications noted. Sepsis Event Evaluation Height, Weight, BMI Height: 5'4.00" Weight: 269lbs. 4.8oz. 122.482233uc; 45.0 BMI Method:Stated Exam Exam Vital Signs Date Time Temp Pulse Resp B/P (MAP) Pulse Ox O2 Delivery O2 Flow Rate FiO2 06/23/18 08:33 85 126/66 (86) 06/23/18 05:45 97.8 89 18 109/64 (79) 96 Nasal Cannula 2.00 06/22/18 23:52 Nasal Cannula 2.00 06/22/18 21:00 Nasal Cannula 2.00 06/22/18 20:26 97.2 96 20 125/76 99 Nasal Cannula 2.00 06/22/18 20:20 97.2 96 20 125/76 (92) 99 Nasal Cannula 2.00 06/22/18 17:52 97.9 88 18 127/74 96 06/22/18 17:40 97.2 89 18 119/69 100 Nasal Cannula 2.00 06/22/18 17:29 97.2 93 124/72 94 Nasal Cannula 2.00 06/22/18 16:48 97.2 89 18 119/69 (86) 100 Nasal Cannula 2.00 I & O 06/23/18 07:00 Intake Total 1490 ml Output Total 750 ml Balance 740 ml Height & Weight Height: 5'4.00" Weight: 269lbs. 4.8oz. 122.783153qo; 45.0 BMI Method:Stated General Appearance: No Apparent Distress, WD/WN, Chronically ill, Obese HEENT: PERRL/EOMI, Normal ENT Inspection, Pharynx Normal Neck: Full Range of Motion, Normal Inspection, Non Tender, Supple, Carotid Bruit Respiratory: Chest Non Tender, Lungs Clear, Normal Breath Sounds, No Accessory Muscle Use, No Respiratory Distress, Decreased Breath Sounds Cardiovascular: Regular Rate, Rhythm, No Gallop, No JVD, No Murmur, Normal Peripheral Pulses Gastrointestinal: non tender, soft Extremity: Pedal Edema Neurologic/Psychiatric: Alert, Oriented x3, No Motor/Sensory Deficits, Normal Mood/Affect, Motor Weakness (4/5 all extremities) Skin: Normal Color, Warm/Dry Lymphatic: No Adenopathy Results Lab Laboratory Tests 06/21/18 10:52 1/8/19 22:20 Assessment/Plan Assessment/Plan Debility/myopathy secondary to extended hospital stay -Rehab Chronic respiratory failure including hypoxia -Oxygen - currently 2 liters -out patient PFT - PA/Lat CXR reviewed Left pleural effusion possibly secondary to ascites -recheck labs including BNP Chronic liver disease with Portal HTN with hx of ascites Anemia transfusion dependent -monitor -Occult stools Gastric antral vascular ectasia -Dx at hypothyroid Afib- chronic CAD -Cardiology following DM II BRISEIDA IBRAHIM DO Jun 23, 2018 10:52
--- NOTE | 2018-06-23 11:32 | Physical Therapy Daily Note ---
PT Daily Note-Current Subjective Pt. states she feels she is making some progress in that her blood is up a little but she has more edema and still has so much trouble moving around because of this. Pt. c/o "seeing stars" during movement and position change this Rx. Continues c/o left shoulder pain and states this inhibits her TRFs and bed mobility as well as when she weight bears for walking with FWW Pain Numeric Pain Scale: 4 Location: Left Location Body Site: Shoulder Pain Description: Throbbing Mental Status Patient Orientation: Normal For Age Attachments: Oxygen (2L), Other-See Comments (bandar wraps distal LEs bilat) Transfers Therapy Code Descriptions/Definitions Functional [place] Measure: 0=Not Assessed/NA 4=Minimal Assistance 1=Total Assistance 5=Supervision or Setup 2=Maximal Assistance 6=Modified [place] 3=Moderate Assistance 7=Complete [place] Therapy Quality Codes: 6 Independent with activity with or without an assistive device 5 Patient requires set up or clean up by helper. Patient completes activity by themselves 4 Supervision or touching assist (CGA). [place] provide cues , steadying assist 3 The helper provides less than half the effort to complete the activity 2 The helper provides more than half the effort to complete the activity 1 Dependent. The helper does all the effort to complete an activity 7 Patient refused to complete or attempt activity 9 The patient did not perform the activity before the current illness or injury 88 Not attempted due to Medical conditions or safety concerns Transfers (B, C, W/C) (FIM): 5 Scootin Rollin Supine to/from Sit: 5 (much effort, needed instruction for rolling etc) Sit to/from Stand: 5 (uses lift recline chair but came up from w/c well too) Bed to/from Chair: 5 Weight Bearing Right Lower Extremity: Right Weight Bearing/Tolerated Left Lower Extremity: Left Weight Bearing/Tolerated Gait Training Does the Patient Walk?: Yes Gait (FIM): 4 Distance (FIM): 3=150 ft (150x1, 25,3) Gait Level of Assist: 4 Gait Persons Needed: 1 Gait Assistive Device: FWW assist for portable O2, w/c follow up, pt. stopped and stood x 3 during gait for short rest breaks Wheelchair Training poor tolerance for w/c training secondary to L shoulder pain Exercises Supine Ex: Bridging, Ankle pumps, Quad Set, Rolling, Glut sets, Heel Slides, Short Arc Quads, Scooting, Straight leg raise, Hip abd/add Supine Reps: 10 (x2) Seated Therapy Exercises: Ankle pumps, Sit to stand, Long arc quads, Hip flexion, Hip abd/add Seated Reps: 12 Treatments to gym for sup to sit and rolling as well as sit to sup ,moves slowly and rests secondary to SOB and tight stiff LEs with much edema Assessment Current Status: Good Progress Pt. and this BOILER MAKER feel pt. could move easily and safely if edema decreased. Pts. strength is good considering this. Pt. has fluid on a lung per Dr Snow PT Short Term Goals Short Term Goals Time Frame: Jun 25, 2018 Transfers (B,C,W/C) (FIM): 4 Gait (FIM): 1 Gait Distance Comment: 25' Gait Level of Assist: 4 Gait Assistive Device: FWW Wheelchair Distance: 150' PT Cutter First Goals Cutter First Goals PT Cutter First Goals Time Frame: Jul 09, 2018 Transfers (B,C,W/C) (FIM): 5 Sit to Lying (QC): 4 Lying-Sitting on Side/Bed(QC): 4 Sit to Stand (QC): 4 Rollin Roll Left to Right (QC): 4 Chair/Ogf-dk-Eexrc Xfer(QC): 4 Car Transfer (QC): 4 Gait (FIM): 2 Distance: 50' Walk 10 feet (QC): 4 Walk 10ft-Uneven Surface(QC): 4 Walk 50ft with 2 Turns (QC): 4 Gait Level of Assist: 5 Gait Assistive Device: FWW Stairs (FIM): 1 # of Steps: 1 1 Step (curb) (QC): 4 Stairs Level Of Assist: 4 PT Plan Treatment/Plan Treatment Plan: Continue Plan of Care Treatment Plan: Bed Mobility, Concurrent Therapy, Education, Functional Activity Tamy, Functional Strength, Group Therapy, Gait, Safety, Therapeutic Exercise, Transfers Treatment Duration: Jul 09, 2018 Frequency: At least 5 of 7 days/Wk (IRF) Estimated Hrs Per Day: 1.5 hours per day Patient and/or Family Agrees t: Yes Safety Risks/Education Patient Education: Gait Training, Transfer Techniques, Correct Positioning, Disease Process, Safety Issues Teaching Recipient: Patient Teaching Methods: Demonstration, Discussion Response to Teaching: Verbalize Understanding, Return Demonstration, Reinforcement Needed Time/GCodes Time In: 1000 Time Out: 1130 Total Billed Treatment Time: 90 Total Billed Treatment 1,FA30m,GT30m,EX30m G Codes Necessary: MARIO Barrera BOILER MAKER Jun 23, 2018 11:32
--- NOTE | 2018-06-23 11:56 | Progress Note ---
Subjective Date Seen by a Provider: Jun 23, 2018 Time Seen by a Provider: 08:49 Subjective/Events-last exam patient with no new complaints. Port placed yesterday. Ports functioning. Denies any nausea vomiting fever sweats chills shortness of breath or chest pain. Objective Exam Vital Signs Date Time Temp Pulse Resp B/P (MAP) Pulse Ox O2 Delivery O2 Flow Rate FiO2 06/23/18 09:00 Nasal Cannula 2.00 06/23/18 08:33 85 126/66 (86) 06/23/18 05:45 97.8 89 18 109/64 (79) 96 Nasal Cannula 2.00 06/22/18 23:52 Nasal Cannula 2.00 06/22/18 21:00 Nasal Cannula 2.00 06/22/18 20:26 97.2 96 20 125/76 99 Nasal Cannula 2.00 06/22/18 20:20 97.2 96 20 125/76 (92) 99 Nasal Cannula 2.00 06/22/18 17:52 97.9 88 18 127/74 96 06/22/18 17:40 97.2 89 18 119/69 100 Nasal Cannula 2.00 06/22/18 17:29 97.2 93 124/72 94 Nasal Cannula 2.00 06/22/18 16:48 97.2 89 18 119/69 (86) 100 Nasal Cannula 2.00 I & O 06/23/18 07:00 Intake Total 1490 ml Output Total 750 ml Balance 740 ml Capillary Refill : General Appearance: No Apparent Distress, WD/WN, Chronically ill, Obese HEENT: PERRL/EOMI, Normal ENT Inspection, Pharynx Normal Neck: Full Range of Motion, Normal Inspection, Non Tender, Supple, Carotid Bruit Respiratory: Chest Non Tender, No Accessory Muscle Use, No Respiratory Distress , Decreased Breath Sounds Cardiovascular: Regular Rate, Rhythm (right chest incision no signs of infection) Gastrointestinal: non tender, soft Extremity: Pedal Edema Neurologic/Psychiatric: Alert, Oriented x3, No Motor/Sensory Deficits, Normal Mood/Affect, Motor Weakness (4/5 all extremities) Skin: Normal Color, Warm/Dry Lymphatic: No Adenopathy Results Lab Laboratory Tests 06/22/18 16:46: Glucometer 116H 06/22/18 20:18: Glucometer 157H 06/22/18 21:40: Stool Occult Blood Immunoassay POSITIVEH 06/22/18 22:20: Hemoglobin 8.2L, Hematocrit 28L 06/23/18 06:15: Glucometer 209H Assessment/Plan Assessment/Plan Assessment/Plan chronic anemia requiring transfusion poor venous access Hypoxia requiring oxygen Paroxysmal atrial fibrillation Type II diabetes mellitus CAD c history of bypass Hyperlipidemia Hypothyroidism History of hepatitis B COPD Thrombocytopenia Chronic renal insufficiency Hypertension Long's esophagus Chronic diastolic heart failure Morbid obesity patient port placed yesterday. Functioning without difficulty. Will sign off at this time, call if needed. Clinical Quality Measures DVT/VTE Risk/Contraindication: Risk Factor Score Per Nursin RFS Level Per Nursing on Admit: 4+=Very High SABRINA ROSSI DO Jun 23, 2018 11:56
[2018-06-23 11:57] LABS: BASOPHILS % (AUTO) 1 % (0-10); EOSINOPHILS # (AUTO) 0.3 10^3/uL (0.0-0.3); EOSINOPHILS % (AUTO) 8 % (0-10); HEMATOCRIT 27 % (35-52); HEMOGLOBIN 8.1 G/DL (11.5-16.0); LYMPHOCYTES # (AUTO) 0.6 X 10^3 (1.0-4.0); LYMPHOCYTES % (AUTO) 19 % (12-44); MEAN CORPUSCULAR HEMOGLOBIN 30 PG (25-34); MEAN CORPUSCULAR HGB CONC 31 G/DL (32-36); MEAN CORPUSCULAR VOLUME 99 FL (80-99); MEAN PLATELET VOLUME 9.6 FL (7.4-10.4); MONOCYTES # (AUTO) 0.4 X 10^3 (0.0-1.0); MONOCYTES % (AUTO) 14 % (0-12); NEUTROPHILS # (AUTO) 1.7 X 10^3 (1.8-7.8); NEUTROPHILS % (AUTO) 58 % (42-75); PLATELET COUNT 129 10^3/uL (130-400); RED BLOOD COUNT 2.67 10^6/uL (4.35-5.85); RED CELL DISTRIBUTION WIDTH 16.5 % (10.0-14.5)
[2018-06-23 12:14] LABS: ALBUMIN 2.7 GM/DL (3.2-4.5); BILIRUBIN,TOTAL 0.7 MG/DL (0.1-1.0); CALCIUM 8.6 MG/DL (8.5-10.1); CREATININE SERUM 1.53 MG/DL (0.60-1.30); MAGNESIUM 1.3 MG/DL (1.8-2.4); PHOSPHORUS 3.3 MG/DL (2.3-4.7); POTASSIUM 4.1 MMOL/L (3.6-5.0); TOTAL PROTEIN 6.1 GM/DL (6.4-8.2)
[2018-06-23 12:18] LABS: INR 1.3 (0.8-1.4); PROTHROMBIN TIME PATIENT 16.1 SEC (12.2-14.7)
--- NOTE | 2018-06-23 12:47 | NUR ---
Dr. Snow notified of lab results.
--- NOTE | 2018-06-23 13:16 | Cardiology Progress Note ---
Cardiology SOAP Progress Note Subjective: No cardiac complaints. Objective: I&O/Vital Signs 06/23/18 06/23/18 06/23/18 05:45 08:33 09:00 Temp 97.8 Pulse 89 85 Resp 18 B/P (MAP) 109/64 (79) 126/66 (86) Pulse Ox 96 O2 Delivery Nasal Cannula Nasal Cannula O2 Flow Rate 2.00 2.00 06/23/18 00:00 Intake Total 750 ml Output Total 200 ml Balance 550 ml Weight (Pounds): 269 Weight (Ounces): 4.8 Weight (Calculated Kilograms): 122.419020 Constitutional: No appears stated age, No AAO x 3, No apparent distress, No PERRL, No well-developed, No well-nourished, No other Respiratory: No accessory muscle use, No respiratory distress, No chest tender , No chest expansion is symmetric; chest is bilaterally symmetric; No lungs clear to percussion; lungs clear to auscultation; No crackles, No rhonchi, No rales, No stridor, No wheezing, No pleural rub, No other Cardiovascular: irregularly irregular; No extra beats, No parasternal heave is noted, No JVD, No edema, No bradycardia, No tachycardia, No point of maximal impulse, No cardiac thrills are palpable; S1 and S2; No gallop/S3, No gallop/S4 , No diastolic murmur, No systolic murmur, No friction rub, No click, No other Gastrointestional: No tender, No soft, No round, No distended, No pulsatile mass, No organomegaly, No guarding, No rebound, No tenderness, No hernia, No mass, No audible bowel sounds, No abnormal bowel sounds, No abdominal bruits, No spleenomegaly, No other Extremities: No normal range of motion, No non-tender, No normal inspection, No pedal edema, No calf tenderness, No normal capillary refill, No pelvis stable , No calf tenderness, No inflammation, No pedal edema, No slow capillary refill , No swelling, No other, No abrasion, No clubbing, No cyanosis, No ecchymosis, No laceration, No no lower extremity edema bilateral, No significant edema, No tenderness, No wound Neurologic/Psychiatric: no motor/sensory deficits, alert, normal mood/affect, oriented x 3 Skin: No normal color, No warm/dry, No cyanosis, No cool, No diaphoresis, No damp, No ecchymosis, No jaundice, No mottled, No pallor, No rash, No tattoos/ piercings, No ulcerations, No rash on exposed areas, No ulcerations on exposed areas, No other Results/Procedures: Labs Laboratory Tests 06/22/18 16:46: Glucometer 116H 06/22/18 20:18: Glucometer 157H 06/22/18 21:40: Stool Occult Blood Immunoassay POSITIVEH 06/22/18 22:20: Hemoglobin 8.2L, Hematocrit 28L 06/23/18 06:15: Glucometer 209H 06/23/18 11:27: Glucometer 149H 06/23/18 11:47: White Blood Count 3.0L, Red Blood Count 2.67L, Hemoglobin 8.1L, Hematocrit 27L, Mean Corpuscular Volume 99, Mean Corpuscular Hemoglobin 30, Mean Corpuscular Hemoglobin Concent 31L, Red Cell Distribution Width 16.5H, Platelet Count 129L, Mean Platelet Volume 9.6, Neutrophils (%) (Auto) 58, Lymphocytes (%) (Auto) 19, Monocytes (%) (Auto) 14H, Eosinophils (%) (Auto) 8, Basophils (%) (Auto) 1, Neutrophils # (Auto) 1.7L, Lymphocytes # (Auto) 0.6L, Monocytes # (Auto) 0.4, Eosinophils # (Auto) 0.3, Basophils # (Auto) 0.0, Prothrombin Time 16.1H, INR Comment 1.3, Activated Partial Thromboplast Time 31, Sodium Level 137, Potassium Level 4.1, Chloride Level 93L, Carbon Dioxide Level 37H, Anion Gap 7, Blood Urea Nitrogen 20H, Creatinine 1.53H, Estimat Glomerular Filtration Rate 35 , BUN/Creatinine Ratio 13, Glucose Level 137H, Calcium Level 8.6, Corrected Calcium 9.6, Phosphorus Level 3.3, Magnesium Level 1.3L, Total Bilirubin 0.7, Aspartate Amino Transf (AST/SGOT) 26, Alanine Aminotransferase (ALT/SGPT) 8, Alkaline Phosphatase 58, B-Type Natriuretic Peptide 330.5H, Total Protein 6.1L, Albumin 2.7L, Thyroid Stimulating Hormone (TSH) 8.21H A/P: Assessment/Dx: Admission Diagnosis sinus tachycardia Hypertension Coronary artery disease Chronic renal insufficiency Plan: Sinus tachycardia, multifactorial, history of paroxysmal atrial fibrillation. Borderline BP : decrease Lopressor to 25mg bid. Status post respiratory failure with pneumonia and UTI and sepsis. Improved, receiving physical therapy Debility and generalized weakness. Receiving physical therapy Anemia- worsening. Has been following with Dr. Field. Port placed. Coronary artery disease, history of CABG 4 done in February 2018. Clinically stable. Continue to monitor History of paroxysmal atrial fibrillation, unable to tolerate oral anticoagulation due to recurrent GI bleed. Moderate size left pericardial effusion, persistent since the bypass surgery. Maintained on Lasix, continue to monitor. Congestive heart failure, chronic left ventricular diastolic dysfunction, secondary to hypertension. 6 pound weight gain since yesterday after IV fluids and blood transfusions. I have requested Lasix 80 mg 1. Hypertension, controlled on current medication, continue to monitor History of hepatic cirrhosis, unknown etiology. Scheduled to see a java tech as an outpatient History of esophageal paresis and gastritis. Followed and managed by primary care physician next History of GAVE History of ascites secondary to hepatic cirrhosis Status post pneumonia and UTI resulted in septic shock and encephalopathy Status post respiratory failure. Obesity, BMI 45 Thank you for your consultation. Please call me if you have any questions. Estela Jorge MD, FACP, FACC, FSCAI, FHRS, CCDS Interventional Cardiology Cardiac Electrophysiology Vascular Medicine and Endovascular Interventions Wei JORGE MD Jun 23, 2018 1:16 pm
[2018-06-23] MEDS ORDERED: FUROSEMIDE 40 MG (LASIX) TAB PO NR (13:23)
--- NOTE | 2018-06-23 14:21 | Occupational Ther Daily Note ---
OT Current Status-Daily Note Subjective Pt. reports that she has soreness in left shoulder. Does not state a pain level , but nursing is aware and has consulted physician. Appearance Pt. up in chair. Agrees to shower this date. Mental Status/Objective Patient Orientation: Person, Place, Time, Situation Therapy Code Descriptions/Definitions Functional Mcwilliams Measure: 0=Not Assessed/NA 4=Minimal Assistance 1=Total Assistance 5=Supervision or Setup 2=Maximal Assistance 6=Modified Mcwilliams 3=Moderate Assistance 7=Complete Mcwilliams Pt. had port placement yesterday. ADL-Treatment Therapy Code Descriptions/Definitions Functional Mcwilliams Measure: 0=Not Assessed/NA 4=Minimal Assistance 1=Total Assistance 5=Supervision or Setup 2=Maximal Assistance 6=Modified Mcwilliams 3=Moderate Assistance 7=Complete Mcwilliams Therapy Quality Codes: 6 Independent with activity with or without an assistive device 5 Patient requires set up or clean up by helper. Patient completes activity by themselves 4 Supervision or touching assist (CGA). [place] provide cues , steadying assist 3 The helper provides less than half the effort to complete the activity 2 The helper provides more than half the effort to complete the activity 1 Dependent. The helper does all the effort to complete an activity 7 Patient refused to complete or attempt activity 9 The patient did not perform the activity before the current illness or injury 88 Not attempted due to Medical conditions or safety concerns Grooming (FIM): 5 (SBA in stance to brush hair and teeth.) Oral Hygiene (QC): 4 Bathing (FIM): 3 (Pt. requires assistance to dry feet and rear radha area.) Shower/Bathe Self (QC): 3 Upper Body (FIM): 5 Upper Body Dressing (QC): 4 Lower Body Dressing (FIM): 2 (Pt. requested to have bandar wraps on bilateral LE. Required assistance for this, and then assist to don shoes. Pt. did attempt to don shoes with AE, but still had difficulty.) Lower Body Dressing (QC): 2 On/Off Footwear (QC): 2 Toileting (FIM): 3 (Pt. requires assistance to cleanse rear radha area after she attempts to with toilet tongs.) Toileting Hygiene (QC): 3 Transfers (B, C, W/C) (FIM): 5 (SBA for sit-stand and ambulation to bathroom.) Toilet/Commode Transfer (FIM): 5 Toilet Transfer (QC): 4 Shower Transfer(FIM): 5 Other Treatment Noted that pt. has increased swelling in bilateral LE. Pt. states that she had increased fluid upon weighing since yesterday. Nursing and physician aware of this. Education OT Patient Education: Correct positioning, Modified ADL techniques, Progress toward Goal/Update tx plan, Purpose of tx/functional activities, Reviewed precautions, Rehab process, Transfer techniques Teaching Recipient: Patient Teaching Methods: Demonstration, Discussion Response to Teaching: Verbalize Understanding, Return Demonstration OT Short Term Goals Short Term Goals Time Frame: Jun 25, 2018 Lower Body Dressing(FIM): 5 Toileting(FIM): 5 Transfers (B,C,W/C) (FIM): 4 Toilet/Commode Transfer(FIM): 5 1=Demonstrate adherence to instructed precautions during ADL tasks. 2=Patient will verbalize/demonstrate understanding of assistive devices/ modifications for ADL. 3=Patient will improve strength/tolerance for activity to enable patient to perform ADL's. OT Replenishment Analyst Goals Mcc Goals Time Frame: Jul 09, 2018 Eating (FIM): 6 Eating (QC): 6 Groomin Oral Hygiene (QC): 6 Bathing(FIM): 6 Shower/Bathe Self (QC): 6 Upper Body Dressing(FIM): 6 Upper Body Dressing (QC): 6 Lower Body Dressing(FIM): 6 Lower Body Dressing (QC): 6 On/Off Footwear (QC): 6 Toileting(FIM): 6 Toileting Hygiene (QC): 6 Toilet/Commode Transfer(FIM): 6 Toilet/Commode Transfer (QC): 6 Shower Transfer(FIM): 5 Additional Goals: 1-Demonstrate ADL Tasks, 2-Verbalize Understanding, 3- ImproveStrength/Tamy 1=Demonstrate adherence to instructed precautions during ADL tasks. 2=Patient will verbalize/demonstrate understanding of assistive devices/ modifications for ADL. 3=Patient will improve strength/tolerance for activity to enable patient to perform ADL's. OT Education/Plan Problem List/Assessment Assessment: Decreased Activ Tolerance, Decreased UE Strength, Impaired I ADL's , Impaired Self-Care Skills Pt demonstrates decreased activity tolerance, strength, mobility, and ADL functioning. Pt to benefit from skilled OT intervention for ADL training, transfers, strengthening, and home safety education to increase functional independence and allow safe discharge home. Discharge Recommendations Plan/Recommendations: Continue POC Therapy D/C Recommendations: Bath Aide, Home w/ Family Support, Occupational Therapy Home Care, Scheduled Assistance Equpiment Recommendations-D/C: Hip Kit Treatment Plan/Plan of Care Treatment,Training & Education: Yes Patient would benefit from OT for education, treatment and training to promote independence in ADL's, mobility, safety and/or upper extremity function for ADL' s. Plan of Care: ADL Retraining, Functional Mobility, Group Exercise/Act as Ind, UE Funct Exercise/Act Treatment Duration: Jul 09, 2018 Frequency: At least 5 of 7 days/Wk (IRF) Estimated Hrs Per Day: 1.5 hours per day Agreement: Yes Rehab Potential: Fair Time/GCodes Start Time: 08:30 Stop Time: 10:00 Total Time Billed (hr/min): 90 Billed Treatment Time 1, ADL x 6 SANDRA COMER OT Jun 23, 2018 14:21
--- NOTE | 2018-06-23 15:26 | NUR ---
Dr. Field here to see patient.
--- NOTE | 2018-06-23 15:38 | Diagnostic Imaging Report ---
INDICATION: Left shoulder pain. TIME OF EXAM: 2:21 PM FINDINGS: Two views left shoulder demonstrate normal glenohumeral and acromioclavicular alignment. Acromiohumeral space is normal. No fracture or dislocation is seen. IMPRESSION: No acute bony abnormality is detected. Dictated by: Dictated on workstation # [id number]
--- NOTE | 2018-06-23 16:01 | NUR ---
Team Conference Discussed team conference with patient and her family. Recommendation is to recheck patient's medical and functional progress in one week. Patient and family verbalize understanding and agree with plan.
--- NOTE | 2018-06-23 16:32 | Progress Note-Standard ---
Standard Progress Note Progress Notes/Assess & Plan Date Seen by a Provider: Jun 23, 2018 Time Seen by a Provider: 16:24 Progress/Assessment & Plan 62-year-old female with iron deficiency anemia due to chronic GI bleeding due to GAVE syndrome and was requiring numerous transfusions and parenteral iron therapies over the last 1-1/2 years. She developed coronary artery disease requiring 4 vessel CABG could not tolerate any anticoagulation including aspirin secondary to significant bleeding. Recent episode of the respiratory failure following infection/sepsis requiring ventilator management but extubated with significant deconditioning. Currently undergoing physical therapy for strengthening. Working with physical therapy and feeling stronger. Lab work noted with with hemoglobin 8.2 after one unit of packed red blood cells yesterday. Fecal occult blood test positive indicating continued chronic GI blood loss. Underwent port placement yesterday with the mild surrounding ecchymosis but no significant bleeding. Repeat CBC pending for tomorrow. We will maintain hemoglobin more than 8 g/dL secondary to symptoms and coronary artery disease. Patient was on B-12 injections monthly as outpatient for mild B -12 deficiency. She is overdue for a dose and I will administer it. Medications reviewed and patient is on aspirin 81 mg daily which could worsen her chronic bleeding. Would recommend discontinuing this and have discussed with Dr. Morrell. Will follow patient with you. SHIREEN AGARWAL Jun 23, 2018 16:32
--- NOTE | 2018-06-23 17:03 | NUR ---
Mag is 1.3. Dr. Snow notified. New orders to give Mag Sulfate- 2 grams IV X1 now. Orders to hold off on CT of the chest for right now.
--- NOTE | 2018-06-23 17:19 | NUR ---
Dr. Caal here to see patient. Ok for PT and any activities. No restrictions at this point.
--- NOTE | 2018-06-23 17:19 | Consultation ---
History of Present Illness History of Present Illness Patient Consulted On(ken/time) 06/23/18 17:13 Date Seen by Provider: Jun 23, 2018 Time Seen by Provider: 17:14 Reason for Visit: Left Shoulder Pain History of Present Illness 62 y/o white female was reaching overhead with her left arm to pull herself up and has been having posterior shoulder pain since. Denies any numbnes/tingling in arm, denies any neck pain. Hurts some with ROM, and difficult to reach behind her back. She denies any other complaints. Allergies and Home Medications Allergies Coded Allergies: Frvexjt-Iya-Fbz Reductase Inhibitor (Verified Allergy, Intermediate, GI UPSET, N/V, 11/06/17) cefadroxil (Unverified Allergy, Mild, 01/01/17) Sulfa (Sulfonamide Antibiotics) (Verified Allergy, Unknown, 06/18/18) Home Medications Acetaminophen 325 Mg Tablet, 650 MG PO Q6H PRN for PAIN-MILD, (Reported) Aspirin 81 Mg Tablet.dr, 81 MG PO DAILY, (Reported) Cetirizine HCl 10 Mg Tablet, 10 MG PO DAILY, (Reported) Diltiazem HCl 180 Mg Capsule.er, 180 MG PO DAILY, (Reported) Diphenhydramine HCl 25 Mg Capsule, 25 MG PO Q6H PRN for ALLERGIES, (Reported) Folic Acid 1 Mg Tablet, 1 MG PO DAILY, (Reported) Furosemide 40 Mg Tablet, 40 MG PO DAILY, (Reported) Insulin Aspart 300 Units/3 Ml Solution, 4 UNITS SQ TIDAC, (Reported) Insulin NPH Human Isophane 100 Unit/1 Ml Vial, 14 UNIT SQ DAILY, (Reported) Levothyroxine Sodium 175 Mcg Tablet, 175 MCG PO DAILY, (Reported) Metoprolol Tartrate 100 Mg Tablet, 100 MG PO BID, (Reported) Nitroglycerin 0.4 Mg Tab.subl, 0.4 MG SL UD PRN for CHEST PAIN, (Reported) Omeprazole 40 Mg Capsule.dr, 40 MG PO BID, (Reported) Ondansetron HCl 8 Mg Tablet, 8 MG PO Q8H PRN for NAUSEA/VOMITING-1ST LINE, ( Reported) Potassium Chloride 20 Meq Tablet.er, 20 MEQ PO DAILY, (Reported) Sennosides/Docusate Sodium 1 Each Tablet, 1 TAB PO HS, (Reported) Tizanidine HCl 4 Mg Tablet, 4 MG PO TID PRN for MUSCLE SPASMS, (Reported) Tramadol HCl 50 Mg Tablet, 50 MG PO TID PRN for PAIN-MODERATE, (Reported) Patient Home Medication List Home Medication List Reviewed: Yes Past Jksbdya-Ucrotm-Nydfdn Hx Past Med/Social Hx: Reviewed Nursing Past Med/Soc Hx, Reviewed and Corrections made Patient Social History Alcohol Use: Denies Use Recreational Drug Use: No Smoking Status: Former Smoker Type Used: Cigarettes Former Smoker, Quit: May 20, 1980 Recent Foreign Travel: No Contact w/Someone Who Travel: No Recent Infectious Disease Expo: No Recent Hopitalizations: Yes Immunizations Up To Date Tetanus Booster (TDap): Unknown PED Vaccines UTD: Yes Date of Pneumonia Vaccine: Jun 23, 2016 Date of Influenza Vaccine: May 18, 2018 Seasonal Allergies Seasonal Allergies: Yes Past Medical History Surgeries: Yes Adenoidectomy, Cardiac, CABG, Coronary Stent, Open Heart Surgery, Orthopedic, Tonsillectomy, Tubal Ligation Respiratory: Yes (LEFT PLEURAL EFFUSION) Sleep Apnea Currently Using CPAP: No Currently Using BIPAP: No Cardiac: Yes (CHF, STENT X1; CABG 02/16/2018 x 4 @ [facility]) Atrial Fibrillation, Chronic Edema/Swelling, Coronary Artery Disease, Heart Attack, High Cholesterol, Hypertension Neurological: Yes : No Reproductive Disorders: No Female Reproductive Disorders: 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 Sexually Transmitted Disease: No HIV/AIDS: No Genitourinary: Yes Renal Failure Gastrointestinal: Yes Gastroesophageal Reflux, Gastrointestinal Bleed, Diverticulosis, Hemorrhoids, Polyps Musculoskeletal: Yes (POOR AMBULATION--USES WALKER SINCE CABG) Degenerate Disk Disease, Arthritis, Chronic Back Pain, Fractures Endocrine: Yes Diabetes, Insulin dep Are Your Blood Sugars Over 250: No HEENT: No Loss of Vision: Denies Hearing Impairment: Denies Cancer: No Psychosocial: No Anxiety Integumentary: Yes Psoriasis Blood Disorders: Yes (acute anemia) Adverse Reaction/Blood Tranf: Yes (Antibody JKA) Family Medical History Arthritis G8 BROTHER Completed stroke 19 MOTHER FH: anemia 19 MOTHER FH: lupus G8 SISTER FH: throat cancer 19 FATHER Hypertension G8 SISTER Myocardial infarction 19 MOTHER Thyroid disease 19 MOTHER G8 SISTER Hypertension, Stroke, Other Conditions/Hx Review of Systems-General Constitutional: no symptoms reported EENTM: no symptoms reported Respiratory: no symptoms reported Cardiovascular: chest pain Musculoskeletal: joint pain, muscle weakness Psychiatric/Neurological: No Symptoms Reported Physical Exam-General Problems Physical Exam Vital Signs Vital Signs - First Documented 06/18/18 13:50 Temp 98.2 Pulse 87 Resp 20 B/P (MAP) 118/62 (80) Pulse Ox 93 O2 Delivery Nasal Cannula O2 Flow Rate 4.00 Capillary Refill : General Appearance: no apparent distress Neck: non-tender, full range of motion Respiratory: no respiratory distress, no accessory muscle use Cardiovascular: normal peripheral pulses Gastrointestinal: soft Back: other (L shoulder shows +Impingement signs, normal ROM, but decreased infraspinatous and subscap strenght. Neuro intact) Neurologic/Psychiatric: no motor/sensory deficits, alert, oriented x 3 Lymphatic: no adenopathy Comments Shoulder and chest xrays, show mild DJD of AC joint some spurring of AC joint. No fracture seen. Assessment/Plan Assessment/Plan Admission Diagnosis/Plan Left shoulder strain/ partial cuff tear vs. cuff strain Plan: Ok for PT and any activities, no restrictions at this point. Clinical Quality Measures DVT/VTE Risk/Contraindication: Risk Factor Score Per Nursin RFS Level Per Nursing on Admit: 4+=Very High CAMERON PICHARDO MD Jun 23, 2018 17:19
[2018-06-23] MEDS: MAGNESIUM 1 GM/100 ML IVPB 100 ML IV SCH ×2 (17:37→18:42)
[2018-06-23 17:39] VITALS: BP 102/54
--- NOTE | 2018-06-23 19:10 | NUR ---
bedside report received from MAK MACKAY, assume care of pt
--- NOTE | 2018-06-23 21:00 | NUR ---
assessments & interventions completed, see assessments & interventions
[2018-06-23 21:30] VITALS: BP 113/67
--- NOTE | 2018-06-23 21:30 | NUR ---
fsbs 166 no ss insulin req
[2018-06-23] MEDS: MELATONIN 3 MG TABLET PO PRN (21:40)
[2018-06-23] MEDS: SENNA W/DOCUSATE (SENOKOT S) TABLET PO SCH (21:40)
--- NOTE | 2018-06-23 21:40 | NUR ---
c/o lt shoulder pain level 6/10 on numeric scale, Ultram 50mg & Zanaflex 2mg po given
--- NOTE | 2018-06-23 22:15 | NUR ---
right chest power port dressing changed, site bruised & slightly swollen
--- NOTE | 2018-06-23 22:20 | NUR ---
rates pain level 2/10 on numeric scale
[2018-06-24] VITALS (8 sets, daily range): BP systolic 97–133; BP diastolic 58–77
[2018-06-24 05:55] LABS: BASOPHILS % (AUTO) 0 % (0-10); EOSINOPHILS # (AUTO) 0.2 10^3/uL (0.0-0.3); EOSINOPHILS % (AUTO) 8 % (0-10); HEMATOCRIT 24 % (35-52); HEMOGLOBIN 7.4 G/DL (11.5-16.0); LYMPHOCYTES # (AUTO) 0.7 X 10^3 (1.0-4.0); LYMPHOCYTES % (AUTO) 28 % (12-44); MEAN CORPUSCULAR HEMOGLOBIN 31 PG (25-34); MEAN CORPUSCULAR HGB CONC 31 G/DL (32-36); MEAN CORPUSCULAR VOLUME 100 FL (80-99); MEAN PLATELET VOLUME 9.7 FL (7.4-10.4); MONOCYTES # (AUTO) 0.3 X 10^3 (0.0-1.0); MONOCYTES % (AUTO) 13 % (0-12); NEUTROPHILS # (AUTO) 1.3 X 10^3 (1.8-7.8); NEUTROPHILS % (AUTO) 51 % (42-75); PLATELET COUNT 119 10^3/uL (130-400); RED BLOOD COUNT 2.42 10^6/uL (4.35-5.85); RED CELL DISTRIBUTION WIDTH 16.1 % (10.0-14.5); WHITE BLOOD COUNT 2.5 10^3/uL (4.3-11.0)
[2018-06-24] MEDS: inSUlin ASPART (NovoLOG) 1 UNIT/0.01 ML (CHARGE PER UNIT) SC SCH ×4 (06:00→21:42)
[2018-06-24] MEDS: LEVOTHYROXINE 150 MCG (LEVOTHROID) TAB PO SCH (06:31)
[2018-06-24] MEDS: KCL 20 MEQ TAB (K-DUR) PO SCH (06:31)
[2018-06-24] MEDS: PANTOPRAZOLE 40 MG (PROTONIX) TAB PO SCH ×2 (06:31→21:28)
[2018-06-24] MEDS: LEVOTHYROXINE 25 MCG (LEVOTHROID) TAB PO SCH (06:31)
--- NOTE | 2018-06-24 06:59 | NUR ---
[facility] called to orders received to give 2 units PRBC & lasix 80mg to be given at time of blood transfusion
--- NOTE | 2018-06-24 07:04 | Pulmonary Progress Note ---
Subjective Time Seen by a Provider: 07:03 Subjective/Events-last exam SOB controlled. No complications noted. Sepsis Event Evaluation Height, Weight, BMI Height: 5'4.00" Weight: 269lbs. 3.2oz. 122.172687hr; 45.0 BMI Method:Stated Exam Exam Vital Signs Date Time Temp Pulse Resp B/P (MAP) Pulse Ox O2 Delivery O2 Flow Rate FiO2 06/24/18 05:40 97.1 94 18 97/58 (71) 98 Nasal Cannula 2.00 06/23/18 21:30 104 20 113/67 (82) 98 Nasal Cannula 2.00 06/23/18 21:00 98 Nasal Cannula 2.00 06/23/18 17:39 98.2 87 18 102/54 (70) 99 Nasal Cannula 2.00 06/23/18 17:12 Nasal Cannula 2.00 06/23/18 09:00 Nasal Cannula 2.00 06/23/18 08:33 85 126/66 (86) I & O 06/24/18 07:00 Intake Total 1150 ml Output Total 1050 ml Balance 100 ml Height & Weight Height: 5'4.00" Weight: 269lbs. 3.2oz. 122.633727zi; 45.0 BMI Method:Stated General Appearance: No Apparent Distress, WD/WN, Chronically ill, Obese HEENT: PERRL/EOMI, Normal ENT Inspection, Pharynx Normal Neck: Full Range of Motion, Normal Inspection, Non Tender, Supple, Carotid Bruit Respiratory: Chest Non Tender, No Accessory Muscle Use, No Respiratory Distress , Decreased Breath Sounds Cardiovascular: Regular Rate, Rhythm (right chest incision no signs of infection) Gastrointestinal: soft Extremity: Pedal Edema Neurologic/Psychiatric: Alert, Oriented x3, No Motor/Sensory Deficits, Normal Mood/Affect, Motor Weakness (4/5 all extremities) Skin: Normal Color, Warm/Dry Lymphatic: No Adenopathy Results Lab Laboratory Tests 06/22/18 22:20 06/23/18 11:47 06/24/18 05:50 Assessment/Plan Assessment/Plan Debility/myopathy secondary to extended hospital stay -Rehab Chronic respiratory failure including hypoxia -Oxygen - currently 2 liters -out patient PFT - PA/Lat CXR reviewed Left pleural effusion possibly secondary to ascites and diastolic CHF -recheck labs including BNP -check CT of chest Chronic liver disease with Portal HTN with hx of ascites -Continue Lasix Anemia transfusion dependent -monitor -Occult stools Gastric antral vascular ectasia -Dx at [facility] hypothyroid Afib- chronic CAD -Cardiology following DM II BRISEIDA IBRAHIM DO Jun 24, 2018 07:03
--- NOTE | 2018-06-24 07:28 | NUR ---
bedside report given to JUAN PABLO MACKAY
[2018-06-24] MEDS: DIGOXIN 0.125 MG (LANOXIN) TAB PO SCH (08:27)
[2018-06-24] MEDS ORDERED: CYANOCOBALAMIN 1,000 MCG (VITAMIN B-12) TABLET PO NR (08:28)
[2018-06-24] MEDS: meTOprolol TARTRATE 25 MG (LOPRESSOR) TABLET PO SCH ×2 (08:28→09:31)
[2018-06-24] MEDS: FOLIC ACID 1 MG TAB PO SCH (08:28)
[2018-06-24] MEDS: FUROSEMIDE 40 MG (LASIX) TAB PO SCH (08:28)
[2018-06-24] MEDS: inSUlin NPH (NovoLIN N) 1 UNIT/0.01 ML (CHARGE PER UNIT) SQ SCH (08:33)
--- NOTE | 2018-06-24 08:42 | PM&R Progress Note ---
Subjective HPI/CC On Admission Date Seen by Provider: Jun 24, 2018 Time Seen by Provider: 08:00 Patient doing very well today Blood sugar was low last night so held insulin Willing to do a NovoLog sliding scale Denies any pain Lower extremity edema will require additional diuresis Appreciate cardiology, hematology, pulmonology consultation Maintained on 2 L of oxygen Bowels are moving Blood pressure stable Has no other issues Family just came to visit when I was completing my exam Subjective/Events-last exam Patient to receive 2 units of blood due to hemoglobin is 7.[address] Haywood Patient very fatigued and short of breath and that is how she feels when she is low on blood This may limit physical therapy and all therapies today and tell blood transfusion completed and improved status. Receiving an extra 80 mg of Lasix due to 2 units of blood being transfused TSH is elevated at 8 and check with [facility] the last time it was changed was November [address] Haywood changed it from 200 mcg to 175 mcg so we will go ahead and alternate both of those doses to optimize thyroid function Aspirin was discontinued and vitamin B12 was started by Dr. Haywood Decreasing Zanaflex dosing from 4 mg at a time to 2 mg at a time per patient request Review of Systems General: Fatigue Pulmonary: Dyspnea Musculoskeletal: arm pain Objective Exam Vital Signs Vital Signs Date Time Temp Pulse Resp B/P (MAP) Pulse Ox O2 Delivery O2 Flow Rate FiO2 06/24/18 20:18 98.7 103 22 125/75 95 Nasal Cannula 2.00 Capillary Refill : General Appearance: No Apparent Distress, WD/WN, Chronically ill, Obese Respiratory: Chest Non Tender, Lungs Clear, Normal Breath Sounds, No Accessory Muscle Use, No Respiratory Distress, Decreased Breath Sounds Cardiovascular: Regular Rate, Rhythm, No Edema, No Gallop, No JVD, No Murmur, Normal Peripheral Pulses Extremity: Pedal Edema Neurologic/Psychiatric: Alert, Oriented x3, No Motor/Sensory Deficits, Normal Mood/Affect Skin: Normal Color, Warm/Dry Results/Procedures Lab Laboratory Tests 06/24/18 05:50 Patient resulted labs reviewed. 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 Haywood has received 50 units of blood over the past 1 year and needs ablation on gastric bleeder Type II diabetes mellitus Chronic GI bleeding CAD Previous bypass Hyperlipidemia Hypothyroidism History of hepatitis B COPD Thrombocytopenia Chronic renal insufficiency Hypertension Long's esophagus Chronic diastolic heart failure Morbid obesity Edema requiring Lasix with K+ and wide EMMA wraps Left pleural effusion Poor venous access requiring [place] port placement 06/22/[address] Holt Plan: BB 50 BID with Dig Appreciate Gwendolyn Dumont, Sheila on this complex counter caser labs every other day per Dr Field Wide emma wraps to lower legs to facilitate edema resolution Therapies Port placement maintained Transfusion for hgb < 8.0 2 units of blood today with additional Lasix dose 80mg B12 supplement DC ASA due to severe bleeding risk 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 (3) Atrial fibrillation Status: Chronic Qualifiers: Atrial fibrillation type: paroxysmal Qualified Codes: I48.0 - Paroxysmal atrial fibrillation (4) Hypothyroidism Status: Chronic Qualifiers: Hypothyroidism type: acquired Qualified Codes: E03.9 - Hypothyroidism, unspecified (5) Coronary artery disease Status: Chronic Qualifiers: Coronary Disease-Associated Artery/Lesion type: belk[place]ski artery [place] vs. transplanted heart: belkofski heart Associated angina: without angina Qualified Codes: I25.10 - Atherosclerotic heart disease of belk[place]ski coronary artery without angina pectoris (6) Hypertension Status: Chronic Qualifiers: Hypertension type: essential hypertension Qualified Codes: I10 - Essential (primary) hypertension (7) GI bleeding Status: Chronic Qualifiers: GI bleed type/associated pathology: angiodysplasia of stomach and duodenum Qualified Codes: K31.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 (8) Transfusion-dependent anemia Status: Chronic (9) Type 2 diabetes mellitus with hyperglycemia Status: Chronic Qualifiers: 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: with alf use Qualified Codes : E11.65 - Type 2 diabetes mellitus with hyperglycemia; Z79.4 - custodial ( current) use of insulin (10) Oxygen dependent Status: Chronic (11) Loss of weight Status: Acute (12) Hypoxia Status: Chronic (13) CKD (chronic kidney disease) Status: Chronic (14) Portal hypertension Status: Chronic (15) Edema Status: Acute Qualifiers: Edema type: generalized Qualified Codes: R60.1 - Generalized edema (16) Port-A-Cath in place Status: Acute (17) Poor venous access Status: Acute (18) Left shoulder pain Qualifiers: Chronicity: acute Qualified Codes: M25.512 - Pain in left shoulder (19) Hx of CABG Status: Chronic (20) B12 deficiency Status: Chronic (21) Contraindication to anticoagulation therapy Status: Chronic (22) Contraindication to antiplatelet therapy Status: Chronic Clinical Quality Measures Admission Status Admission Dx Assessment: Critical illness myopathy with severe debilitating requiring inpatient rehabilitation prior to going home to return to independent living Hypoxia requiring 2 L of oxygen supplementation 05/01 Paroxysmal atrial fibrillation Transfusion dependent anemia managed by Dr. Haywood Type II diabetes mellitus Chronic GI bleeding CAD Previous bypass Hyperlipidemia Hypothyroidism History of hepatitis B COPD Thrombocytopenia Chronic renal insufficiency Hypertension Long's esophagus Chronic diastolic heart failure Morbid obesity Plan: Continue diuresis of 80 mg Lasix by mouth daily Evaluate cardiac meds per Dr. Sheila Field evaluation and management of transfusion-dependent anemia Appreciate pulmonology consultation for hypoxemia and maintain oxygen DVT/VTE Risk/Contraindication: Risk Factor Score Per Nursin RFS Level Per Nursing on Admit: 4+=Very High MICHELLE GARCIA DO Jun 24, 2018 08:42
[2018-06-24] MEDS ORDERED: LEVOTHYROXINE 100 MCG (LEVOTHROID) TAB PO SCH (09:15)
[2018-06-24] MEDS ORDERED: LEVOTHYROXINE 25 MCG (LEVOTHROID) TAB PO NR (10:16)
[2018-06-24] MEDS: LORATADINE (CLARITIN) 10 MG TAB PO SCH (10:24)
[2018-06-24] MEDS ORDERED: CYANOCOBALAMIN INJ 1000 MCG/ML IM NR (10:30)
--- NOTE | 2018-06-24 11:00 | NUR ---
Pastoral Care Visit.
--- NOTE | 2018-06-24 11:24 | Physical Therapy Daily Note ---
PT Daily Note-Current Subjective Pt laying Supine in bed upon arrival. Pt agrees to PT for Supine Ex in bed. Pt reports feeling very fatigued due to Hemo. running low (7.4). Dr Morrell is aware and pt will be receiving 2 units of blood. Pain Numeric Pain Scale: 8 Location: Left Location Body Site: Shoulder Pain Description: Ache Mental Status Patient Orientation: Person, Place, Time, Situation Transfers Therapy Code Descriptions/Definitions Functional [place] Measure: 0=Not Assessed/NA 4=Minimal Assistance 1=Total Assistance 5=Supervision or Setup 2=Maximal Assistance 6=Modified [place] 3=Moderate Assistance 7=Complete [place] Therapy Quality Codes: 6 Independent with activity with or without an assistive device 5 Patient requires set up or clean up by helper. Patient completes activity by themselves 4 Supervision or touching assist (CGA). [place] provide cues , steadying assist 3 The helper provides less than half the effort to complete the activity 2 The helper provides more than half the effort to complete the activity 1 Dependent. The helper does all the effort to complete an activity 7 Patient refused to complete or attempt activity 9 The patient did not perform the activity before the current illness or injury 88 Not attempted due to Medical conditions or safety concerns Weight Bearing Right Lower Extremity: Right Weight Bearing/Tolerated Left Lower Extremity: Left Weight Bearing/Tolerated Exercises Supine Ex: Ankle pumps, Quad Set, Glut sets, Heel Slides, Straight leg raise, Hip abd/add Supine Reps: 15 (2 sets of AP, QS & AB/ADD) Treatments Pt completes Supine Ex in bed with several rest breaks as needed. Pt & GUITAR MAKER discuss how pt is trying to complete tx and disease process. GUITAR MAKER reassures pt that staff knows pt is motivated and trying her best despite medical complications. Pt resting at end of tx with all needs met. Assessment Current Status: Fair Progress Pt is very motivated to overcome medical complications and improve physically to return home. Pt is very fatigued and tires quickly with extended time to recover. Pt will receive 2 units of blood and progress should improve. 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 Goals Long-Term Goals PT Long-Term Goals Time Frame: Jul 09, 2018 Transfers (B,C,W/C) (FIM): 5 Sit to Lying (QC): 4 Lying-Sitting on Side/Bed(QC): 4 Sit to Stand (QC): 4 Rollin Roll Left to Right (QC): 4 Chair/Rmy-th-Atirp Xfer(QC): 4 Car Transfer (QC): 4 Gait (FIM): 2 Distance: 50' Walk 10 feet (QC): 4 Walk 10ft-Uneven Surface(QC): 4 Walk 50ft with 2 Turns (QC): 4 Gait Level of Assist: 5 Gait Assistive Device: FWW Stairs (FIM): 1 # of Steps: 1 1 Step (curb) (QC): 4 Stairs Level Of Assist: 4 PT Plan Problem List Problem List: Activity Tolerance, Functional Strength, Safety, Balance, Gait, Transfer, Bed Mobility Treatment/Plan Treatment Plan: Continue Plan of Care Treatment Plan: Bed Mobility, Concurrent Therapy, Education, Functional Activity Tamy, Functional Strength, Group Therapy, Gait, Safety, Therapeutic Exercise, Transfers Treatment Duration: Jul 09, 2018 Frequency: At least 5 of 7 days/Wk (IRF) Estimated Hrs Per Day: 1.5 hours per day Patient and/or Family Agrees t: Yes Safety Risks/Education Patient Education: Transfer Techniques, Correct Positioning, Disease Process, Safety Issues Teaching Recipient: Patient Teaching Methods: Discussion Response to Teaching: Verbalize Understanding Time/GCodes Time In: 1015 Time Out: 1105 Total Billed Treatment Time: 50 Total Billed Treatment 1, FA (20m) & EX x2 (30m) G Codes Necessary: MARY ANN Real PTA Jun 24, 2018 11:24
--- NOTE | 2018-06-24 12:58 | Occupational Ther Daily Note ---
OT Current Status-Daily Note Subjective Pt. states that she does not feel well at all, and is requesting to not participate in therapy. Appearance Pt. in bed. Hemoglobin is 7.4. Pt. is to receive two units of blood when they arrive at this hospital. Pt. states at beginning that she does not want to do anything. Physician is made aware. Pt. agrees to bed exercises and toileting, but declines bathing/dressing. Mental Status/Objective Patient Orientation: Person, Place, Time, Situation Therapy Code Descriptions/Definitions Functional [place] Measure: 0=Not Assessed/NA 4=Minimal Assistance 1=Total Assistance 5=Supervision or Setup 2=Maximal Assistance 6=Modified [place] 3=Moderate Assistance 7=Complete [place] ADL-Treatment Therapy Code Descriptions/Definitions Functional [place] Measure: 0=Not Assessed/NA 4=Minimal Assistance 1=Total Assistance 5=Supervision or Setup 2=Maximal Assistance 6=Modified [place] 3=Moderate Assistance 7=Complete [place] Therapy Quality Codes: 6 Independent with activity with or without an assistive device 5 Patient requires set up or clean up by helper. Patient completes activity by themselves 4 Supervision or touching assist (CGA). [place] provide cues , steadying assist 3 The helper provides less than half the effort to complete the activity 2 The helper provides more than half the effort to complete the activity 1 Dependent. The helper does all the effort to complete an activity 7 Patient refused to complete or attempt activity 9 The patient did not perform the activity before the current illness or injury 88 Not attempted due to Medical conditions or safety concerns Toileting (FIM): 4 (CGA in stance to pull up underwear after urinating.) Toileting Hygiene (QC): 4 Transfers (B, C, W/C) (FIM): 4 (Pt. requires min assist for supine-sit, but is able to stand with CGA and ambulate to bathroom.) Toilet/Commode Transfer (FIM): 4 Toilet Transfer (QC): 4 Other Treatment Pt. has had x-ray of left shoulder performed, and no dislocation or fracture is noted. Dr. Caal has okay'd for pt. to have therapy to left shoulder for movement. OT completed gentle PROM to left shoulder at bed level. Pt. tolerated shoulder flexion/elbow flexion, but tolerated very little shoulder abduction or external rotation. Pt. also had difficulty tolerating supination/ pronation. Tolerated to end range. OT completed gentle retrograde massage to left forearm, as pt. reports that it is sensitive. After ROM, pt. agreed to attempt toileting. Pt. transferred to side of bed with min assist and then ambulated to bathroom. After toileting task, ambulated back to bed. Min assist for sit-supine. All needs met. Education OT Patient Education: Correct positioning, Exercise program, Modified ADL techniques, Progress toward Goal/Update tx plan, Purpose of tx/functional activities, Reviewed precautions, Rehab process, Transfer techniques Teaching Recipient: Patient Teaching Methods: Demonstration, Discussion Response to Teaching: Verbalize Understanding, Return Demonstration OT Short Term Goals Short Term Goals Time Frame: Jun 25, 2018 Lower Body Dressing(FIM): 5 Toileting(FIM): 5 Transfers (B,C,W/C) (FIM): 4 Toilet/Commode Transfer(FIM): 5 1=Demonstrate adherence to instructed precautions during ADL tasks. 2=Patient will verbalize/demonstrate understanding of assistive devices/ modifications for ADL. 3=Patient will improve strength/tolerance for activity to enable patient to perform ADL's. OT Laboratory Sampler Goals Assisted Goals Time Frame: Jul 09, 2018 Eating (FIM): 6 Eating (QC): 6 Groomin Oral Hygiene (QC): 6 Bathing(FIM): 6 Shower/Bathe Self (QC): 6 Upper Body Dressing(FIM): 6 Upper Body Dressing (QC): 6 Lower Body Dressing(FIM): 6 Lower Body Dressing (QC): 6 On/Off Footwear (QC): 6 Toileting(FIM): 6 Toileting Hygiene (QC): 6 Toilet/Commode Transfer(FIM): 6 Toilet/Commode Transfer (QC): 6 Shower Transfer(FIM): 5 Additional Goals: 1-Demonstrate ADL Tasks, 2-Verbalize Understanding, 3- ImproveStrength/Tamy 1=Demonstrate adherence to instructed precautions during ADL tasks. 2=Patient will verbalize/demonstrate understanding of assistive devices/ modifications for ADL. 3=Patient will improve strength/tolerance for activity to enable patient to perform ADL's. OT Education/Plan Problem List/Assessment Assessment: Decreased Activ Tolerance, Decreased UE Strength, Impaired Bed Mobility, Impaired I ADL's, Impaired Self-Care Skills, Restricted Funct UE ROM Pt demonstrates decreased activity tolerance, strength, mobility, and ADL functioning. Pt to benefit from skilled OT intervention for ADL training, transfers, strengthening, and home safety education to increase functional independence and allow safe discharge home. Discharge Recommendations Plan/Recommendations: Continue POC Therapy D/C Recommendations: Home w/ Family Support, Occupational Therapy Home Care, Scheduled Assistance Treatment Plan/Plan of Care Treatment,Training & Education: Yes Patient would benefit from OT for education, treatment and training to promote independence in ADL's, mobility, safety and/or upper extremity function for ADL' s. Plan of Care: ADL Retraining, Functional Mobility, Group Exercise/Act as Ind, UE Funct Exercise/Act Treatment Duration: Jul 09, 2018 Frequency: At least 5 of 7 days/Wk (IRF) Estimated Hrs Per Day: 1.5 hours per day Agreement: Yes Rehab Potential: Fair Time/GCodes Start Time: 08:30 Stop Time: 09:20 Total Time Billed (hr/min): 50 Billed Treatment Time 1, Ex x 30minutes, ADL x 20minutes SANDRA COMER OT Jun 24, 2018 12:58
--- NOTE | 2018-06-24 13:11 | NUR ---
Awaiting blood products from Blood bank. Called at approximately 1030 and left message, then again around 1230 to check on processing. Orders that had been input this morning did not transmit correctly to lab. New orders entered to obtain blood products.
[2018-06-24] MEDS: ACETAMINOPHEN 325 MG TABLET PO PRN (13:51)
--- NOTE | 2018-06-24 14:29 | Occupational Ther Daily Note ---
OT Current Status-Daily Note Subjective No pain reported. Appearance Pt. in bed. Agrees to work with OT. States that she is feeling slightly better , but that she is still tired. Pt. has not had her blood transfusion yet. Mental Status/Objective Patient Orientation: Person, Place, Time, Situation Therapy Code Descriptions/Definitions Functional [place] Measure: 0=Not Assessed/NA 4=Minimal Assistance 1=Total Assistance 5=Supervision or Setup 2=Maximal Assistance 6=Modified [place] 3=Moderate Assistance 7=Complete [place] Attachments: Oxygen ADL-Treatment Therapy Code Descriptions/Definitions Functional [place] Measure: 0=Not Assessed/NA 4=Minimal Assistance 1=Total Assistance 5=Supervision or Setup 2=Maximal Assistance 6=Modified [place] 3=Moderate Assistance 7=Complete [place] Therapy Quality Codes: 6 Independent with activity with or without an assistive device 5 Patient requires set up or clean up by helper. Patient completes activity by themselves 4 Supervision or touching assist (CGA). [place] provide cues , steadying assist 3 The helper provides less than half the effort to complete the activity 2 The helper provides more than half the effort to complete the activity 1 Dependent. The helper does all the effort to complete an activity 7 Patient refused to complete or attempt activity 9 The patient did not perform the activity before the current illness or injury 88 Not attempted due to Medical conditions or safety concerns Transfers (B, C, W/C) (FIM): 4 (Pt. requires min assist for supine-sit. Transferred to wheelchair with CGA. ) Other Treatment Pt. agrees to participate in simple tasks in therapy gym. Pt. taken to gym via wheelchair. Pt. reports that she is very cold so warm blankets given to her. Participated in fine motor task with nut/bolt activity, as well as therapy peg activity to increase overall endurance up in chair. Pt. tolerated this well with frequent rest breaks. All needs met back in room and pt. up in chair waiting for PT to come in. Education OT Patient Education: Correct positioning, Exercise program, Modified ADL techniques, Progress toward Goal/Update tx plan, Purpose of tx/functional activities, Reviewed precautions, Rehab process, Transfer techniques Teaching Recipient: Patient Teaching Methods: Demonstration, Discussion Response to Teaching: Verbalize Understanding, Return Demonstration OT Short Term Goals Short Term Goals Time Frame: Jun 25, 2018 Lower Body Dressing(FIM): 5 Toileting(FIM): 5 Transfers (B,C,W/C) (FIM): 4 Toilet/Commode Transfer(FIM): 5 1=Demonstrate adherence to instructed precautions during ADL tasks. 2=Patient will verbalize/demonstrate understanding of assistive devices/ modifications for ADL. 3=Patient will improve strength/tolerance for activity to enable patient to perform ADL's. OT Intermediate Goals Intermediate Goals Time Frame: Jul 09, 2018 Eating (FIM): 6 Eating (QC): 6 Groomin Oral Hygiene (QC): 6 Bathing(FIM): 6 Shower/Bathe Self (QC): 6 Upper Body Dressing(FIM): 6 Upper Body Dressing (QC): 6 Lower Body Dressing(FIM): 6 Lower Body Dressing (QC): 6 On/Off Footwear (QC): 6 Toileting(FIM): 6 Toileting Hygiene (QC): 6 Toilet/Commode Transfer(FIM): 6 Toilet/Commode Transfer (QC): 6 Shower Transfer(FIM): 5 Additional Goals: 1-Demonstrate ADL Tasks, 2-Verbalize Understanding, 3- ImproveStrength/Tamy 1=Demonstrate adherence to instructed precautions during ADL tasks. 2=Patient will verbalize/demonstrate understanding of assistive devices/ modifications for ADL. 3=Patient will improve strength/tolerance for activity to enable patient to perform ADL's. OT Education/Plan Problem List/Assessment Assessment: Decreased Activ Tolerance, Decreased UE Strength, Impaired I ADL's , Impaired Self-Care Skills, Restricted Funct UE ROM Pt demonstrates decreased activity tolerance, strength, mobility, and ADL functioning. Pt to benefit from skilled OT intervention for ADL training, transfers, strengthening, and home safety education to increase functional independence and allow safe discharge home. Discharge Recommendations Plan/Recommendations: Continue POC Therapy D/C Recommendations: Home w/ Family Support, Occupational Therapy Home Care, Scheduled Assistance Treatment Plan/Plan of Care Treatment,Training & Education: Yes Patient would benefit from OT for education, treatment and training to promote independence in ADL's, mobility, safety and/or upper extremity function for ADL' s. Plan of Care: ADL Retraining, Functional Mobility, Group Exercise/Act as Ind, UE Funct Exercise/Act Treatment Duration: Jul 09, 2018 Frequency: At least 5 of 7 days/Wk (IRF) Estimated Hrs Per Day: 1.5 hours per day Agreement: Yes Rehab Potential: Fair Time/GCodes Start Time: 13:15 Stop Time: 14:00 Total Time Billed (hr/min): 45 Billed Treatment Time 1, FA x 3 SANDRA COMER OT Jun 24, 2018 14:29
--- NOTE | 2018-06-24 14:41 | Physical Therapy Daily Note ---
PT Daily Note-Current Subjective "My legs are rubbery." Agrees to leg exercises in sitting and in bed. Transfers Therapy Code Descriptions/Definitions Functional [place] Measure: 0=Not Assessed/NA 4=Minimal Assistance 1=Total Assistance 5=Supervision or Setup 2=Maximal Assistance 6=Modified [place] 3=Moderate Assistance 7=Complete [place] Therapy Quality Codes: 6 Independent with activity with or without an assistive device 5 Patient requires set up or clean up by helper. Patient completes activity by themselves 4 Supervision or touching assist (CGA). [place] provide cues , steadying assist 3 The helper provides less than half the effort to complete the activity 2 The helper provides more than half the effort to complete the activity 1 Dependent. The helper does all the effort to complete an activity 7 Patient refused to complete or attempt activity 9 The patient did not perform the activity before the current illness or injury 88 Not attempted due to Medical conditions or safety concerns Weight Bearing Right Lower Extremity: Right Weight Bearing/Tolerated Left Lower Extremity: Left Weight Bearing/Tolerated Treatments Pt able to transfer sit to stand and take 4-5 steps to the bed with FWW with CGA and skilled cues for handplacement and safety. Pt sat EOB to perform LE ther ex x 15 for AP, heel raises, LAQ, hip flexion and GS; Transferred sit to supine with mod assist (min assist for each leg); In bed she performed QS, HS and AP x 15 each. In bed post treatment with needs met. Assessment Pt feels weak in her legs, expecting to receive blood today. Unable to tolerate further therapy due to fatigue and limited ability to participate in standing activities. Pt fearful of falls due to Le weakness likely due to low HgB. PT Short Term Goals Short Term Goals Time Frame: Jun 25, 2018 Transfers (B,C,W/C) (FIM): 4 Gait (FIM): 1 Gait Distance Comment: 25' Gait Level of Assist: 4 Gait Assistive Device: FWW Wheelchair Distance: 150' PT Senior Living Goals Tie Layer Goals PT Tie Layer Goals Time Frame: Jul 09, 2018 Transfers (B,C,W/C) (FIM): 5 Sit to Lying (QC): 4 Lying-Sitting on Side/Bed(QC): 4 Sit to Stand (QC): 4 Rollin Roll Left to Right (QC): 4 Chair/Rwa-ts-[place]ym[place] Xfer(QC): 4 Car Transfer (QC): 4 Gait (FIM): 2 Distance: 50' Walk 10 feet (QC): 4 Walk 10ft-Uneven Surface(QC): 4 Walk 50ft with 2 Turns (QC): 4 Gait Level of Assist: 5 Gait Assistive Device: FWW Stairs (FIM): 1 # of Steps: 1 1 Step (curb) (QC): 4 Stairs Level Of Assist: 4 PT Plan Problem List Problem List: Activity Tolerance, Functional Strength, Safety, Balance, Gait, Transfer, Bed Mobility Treatment/Plan Treatment Plan: Continue Plan of Care Treatment Plan: Bed Mobility, Concurrent Therapy, Education, Functional Activity Tamy, Functional Strength, Group Therapy, Gait, Safety, Therapeutic Exercise, Transfers Treatment Duration: Jul 09, 2018 Frequency: At least 5 of 7 days/Wk (IRF) Estimated Hrs Per Day: 1.5 hours per day Patient and/or Family Agrees t: Yes Safety Risks/Education Patient Education: Safety Issues Teaching Recipient: Patient Teaching Methods: Discussion Response to Teaching: Verbalize Understanding Time/GCodes Time In: 1405 Time Out: 1441 Total Billed Treatment Time: 36 Total Billed Treatment visit EX 36 JENNIFER SMITH PT Jun 24, 2018 14:41
--- NOTE | 2018-06-24 15:11 | Cardiology Progress Note ---
Cardiology SOAP Progress Note Subjective: Mild shortness of breath. Objective: I&O/Vital Signs 06/24/18 06/24/18 06/24/18 09:00 15:53 15:54 Temp 98.2 Pulse 95 94 Resp 20 20 B/P (MAP) 107/64 101/60 Pulse Ox 96 95 O2 Delivery Nasal Cannula Room Air O2 Flow Rate 2.00 2.00 2.00 06/24/18 00:00 Intake Total 610 ml Output Total 500 ml Balance 110 ml Weight (Pounds): 269 Weight (Ounces): 3.2 Weight (Calculated Kilograms): 122.361570 Constitutional: No appears stated age, No AAO x 3, No apparent distress, No PERRL, No well-developed, No well-nourished, No other Respiratory: No accessory muscle use, No respiratory distress, No chest tender , No chest expansion is symmetric; chest is bilaterally symmetric; No lungs clear to percussion; lungs clear to auscultation; No crackles, No rhonchi, No rales, No stridor, No wheezing, No pleural rub, No other Cardiovascular: irregularly irregular; No extra beats, No parasternal heave is noted, No JVD, No edema, No bradycardia, No tachycardia, No point of maximal impulse, No cardiac thrills are palpable; S1 and S2; No gallop/S3, No gallop/S4 , No diastolic murmur, No systolic murmur, No friction rub, No click, No other Gastrointestional: No tender, No soft, No round, No distended, No pulsatile mass, No organomegaly, No guarding, No rebound, No tenderness, No hernia, No mass, No audible bowel sounds, No abnormal bowel sounds, No abdominal bruits, No spleenomegaly, No other Extremities: No normal range of motion, No non-tender, No normal inspection, No pedal edema, No calf tenderness, No normal capillary refill, No pelvis stable , No calf tenderness, No inflammation, No pedal edema, No slow capillary refill , No swelling, No other, No abrasion, No clubbing, No cyanosis, No ecchymosis, No laceration, No no lower extremity edema bilateral, No significant edema, No tenderness, No wound Neurologic/Psychiatric: no motor/sensory deficits, alert, normal mood/affect, oriented x 3 Skin: No normal color, No warm/dry, No cyanosis, No cool, No diaphoresis, No damp, No ecchymosis, No jaundice, No mottled, No pallor, No rash, No tattoos/ piercings, No ulcerations, No rash on exposed areas, No ulcerations on exposed areas, No other Results/Procedures: Labs Laboratory Tests 06/23/18 21:34: Glucometer 166H 06/24/18 05:48: Glucometer 142H 06/24/18 05:50: White Blood Count 2.5L, Red Blood Count 2.42L, Hemoglobin 7.4L, Hematocrit 24L, Mean Corpuscular Volume 100H, Mean Corpuscular Hemoglobin 31, Mean Corpuscular Hemoglobin Concent 31L, Red Cell Distribution Width 16.1H, Platelet Count 119L, Mean Platelet Volume 9.7, Neutrophils (%) (Auto) 51, Lymphocytes (%) (Auto) 28, Monocytes (%) (Auto) 13H, Eosinophils (%) (Auto) 8, Basophils (%) (Auto) 0, Neutrophils # (Auto) 1.3L, Lymphocytes # (Auto) 0.7L, Monocytes # (Auto) 0.3, Eosinophils # (Auto) 0.2, Basophils # (Auto) 0.0 06/24/18 11:44: Glucometer 135H 06/24/18 16:55: Glucometer 139H Microbiology 06/22/18 MRSA Screen - Final, Complete MRSA not isolated A/P: Assessment/Dx: Admission Diagnosis sinus tachycardia Hypertension Coronary artery disease Chronic renal insufficiency Anemia, Shortness of breath Plan: Shortness of breath, likely fluid accumulation, extral Lasix given today. Will give IV Lasix 160 mg x 1 in the morning tomorrow. Sinus tachycardia, multifactorial, history of paroxysmal atrial fibrillation. Borderline BP : decrease Lopressor to 25mg bid. Status post respiratory failure with pneumonia and UTI and sepsis. Improved, receiving physical therapy Debility and generalized weakness. Receiving physical therapy Anemia- worsening. Has been following with Dr. Field. Port placed. Coronary artery disease, history of CABG 4 done in February 2018. Clinically stable. Continue to monitor History of paroxysmal atrial fibrillation, unable to tolerate oral anticoagulation due to recurrent GI bleed. Moderate size left pericardial effusion, persistent since the bypass surgery. Maintained on Lasix, continue to monitor. Congestive heart failure, chronic left ventricular diastolic dysfunction, secondary to hypertension. Hypertension, controlled on current medication, continue to monitor History of hepatic cirrhosis, unknown etiology. Scheduled to see a fall intern as an outpatient History of esophageal paresis and gastritis. Followed and managed by primary care physician next History of GAVE History of ascites secondary to hepatic cirrhosis Status post pneumonia and UTI resulted in septic shock and encephalopathy Status post respiratory failure. Obesity, BMI 45 Thank you for your consultation. Please call me if you have any questions. Estela Jorge MD, FACP, FACC, FSCAI, FHRS, CCDS Interventional Cardiology Cardiac Electrophysiology Vascular Medicine and Endovascular Interventions Wei JORGE MD Jun 24, 2018 15:10
[2018-06-24] MEDS ORDERED: NS IV 500 ML 500 ML ONE (15:18)
[2018-06-24] MEDS ORDERED: FUROSEMIDE 40 MG (LASIX) TAB PO NR (16:45)
--- NOTE | 2018-06-24 18:52 | NUR ---
Blood Transfusion for Unit 1 of 2 started at 153, ended at 1839. No s/s of adverse effects or reaction.
[2018-06-24] MEDS: SENNA W/DOCUSATE (SENOKOT S) TABLET PO SCH (21:28)
[2018-06-24] MEDS: MELATONIN 3 MG TABLET PO PRN (21:45)
[2018-06-25] VITALS (8 sets, daily range): BP systolic 115–138; BP diastolic 55–76
[2018-06-25] MEDS: KCL 20 MEQ TAB (K-DUR) PO SCH (06:15)
[2018-06-25] MEDS: PANTOPRAZOLE 40 MG (PROTONIX) TAB PO SCH ×2 (06:15→20:53)
[2018-06-25] MEDS: LEVOTHYROXINE 150 MCG (LEVOTHROID) TAB PO SCH (06:15)
[2018-06-25] MEDS: LEVOTHYROXINE 25 MCG (LEVOTHROID) TAB PO SCH (06:15)
[2018-06-25] MEDS: inSUlin ASPART (NovoLOG) 1 UNIT/0.01 ML (CHARGE PER UNIT) SC SCH ×4 (06:21→22:01)
--- NOTE | 2018-06-25 06:39 | Pulmonary Progress Note ---
Subjective Time Seen by a Provider: 06:40 Subjective/Events-last exam No complications noted. Sepsis Event Evaluation Height, Weight, BMI Height: 5'4.00" Weight: 269lbs. 2.0oz. 122.915111cf; 45.0 BMI Method:Stated Exam Exam Vital Signs Date Time Temp Pulse Resp B/P (MAP) Pulse Ox O2 Delivery O2 Flow Rate FiO2 06/25/18 06:00 97.4 89 20 138/74 (95) 96 Room Air 06/24/18 23:25 98.3 89 20 101/59 96 Nasal Cannula 2.00 06/24/18 21:00 95 Nasal Cannula 2.00 06/24/18 20:33 98.7 105 20 116/67 95 Room Air 06/24/18 20:18 98.7 103 22 125/75 95 Nasal Cannula 2.00 06/24/18 18:40 98.4 88 18 133/77 98 Nasal Cannula 2.00 06/24/18 18:35 98.6 96 20 133/65 (87) 96 Nasal Cannula 2.00 06/24/18 15:54 98.2 94 20 101/60 95 Room Air 2.00 06/24/18 15:53 95 20 107/64 96 2.00 06/24/18 09:00 Nasal Cannula 2.00 I & O 06/25/18 07:00 Intake Total 722 ml Output Total 2000 ml Balance -1278 ml Height & Weight Height: 5'4.00" Weight: 269lbs. 2.0oz. 122.490775xz; 45.0 BMI Method:Stated General Appearance: No Apparent Distress, WD/WN, Chronically ill, Obese HEENT: PERRL/EOMI, Normal ENT Inspection, Pharynx Normal Neck: Full Range of Motion, Normal Inspection, Non Tender, Supple, Carotid Bruit Respiratory: Chest Non Tender, No Accessory Muscle Use, No Respiratory Distress , Decreased Breath Sounds Cardiovascular: Regular Rate, Rhythm (right chest incision no signs of infection) Gastrointestinal: soft Extremity: Pedal Edema Neurologic/Psychiatric: Alert, Oriented x3, No Motor/Sensory Deficits, Normal Mood/Affect, Motor Weakness (4/5 all extremities) Skin: Normal Color, Warm/Dry Lymphatic: No Adenopathy Results Lab Laboratory Tests 06/23/18 11:47 06/24/18 05:50 Assessment/Plan Assessment/Plan Debility/myopathy secondary to extended hospital stay -Rehab Chronic respiratory failure including hypoxia -Oxygen - currently 2 liters -out patient PFT - PA/Lat CXR reviewed Left pleural effusion possibly secondary to ascites and diastolic CHF -recheck labs including BNP Chronic liver disease with Portal HTN with hx of ascites -Continue Lasix Anemia transfusion dependent -monitor -Occult stools Gastric antral vascular ectasia -Dx at hypothyroid Afib- chronic CAD -Cardiology following DM II BRISEIDA IBRAHIM DO Jun 25, 2018 06:39
--- NOTE | 2018-06-25 07:22 | NUR ---
INFORMED DR. GARCIA THAT PATIENT IS CONCERNED ABOUT AND WOULD LIKE HER TO LOOK AT HER BILAT. LOWER EXTREM. REDNESS. RECEIVED ORDERS TO RECHECK CBC Q 48HRS.
[2018-06-25] MEDS ORDERED: FUROSEMIDE 40 MG/4 ML INJ (LASIX) IVP NR (08:00)
[2018-06-25] MEDS: LORATADINE (CLARITIN) 10 MG TAB PO SCH (09:28)
[2018-06-25] MEDS: meTOprolol TARTRATE 25 MG (LOPRESSOR) TABLET PO SCH ×2 (09:28→20:57)
[2018-06-25] MEDS: FOLIC ACID 1 MG TAB PO SCH (09:28)
[2018-06-25] MEDS: DIGOXIN 0.125 MG (LANOXIN) TAB PO SCH (09:28)
[2018-06-25] MEDS: inSUlin NPH (NovoLIN N) 1 UNIT/0.01 ML (CHARGE PER UNIT) SQ SCH (09:30)
--- NOTE | 2018-06-25 10:26 | Cardiology Progress Note ---
Cardiology SOAP Progress Note Subjective: improved shortness of breath. Objective: I&O/Vital Signs 06/24/18 06/25/18 06/25/18 23:25 06:00 09:26 Temp 98.3 97.4 Pulse 89 89 104 Resp 20 20 18 B/P (MAP) 101/59 138/74 (95) 115/70 (85) Pulse Ox 96 96 O2 Delivery Nasal Cannula Room Air O2 Flow Rate 2.00 06/25/18 00:00 Intake Total 500 ml Output Total 1000 ml Balance -500 ml Weight (Pounds): 269 Weight (Ounces): 2.0 Weight (Calculated Kilograms): 122.109670 Constitutional: No appears stated age, No AAO x 3, No apparent distress, No PERRL, No well-developed, No well-nourished, No other Respiratory: No accessory muscle use, No respiratory distress, No chest tender , No chest expansion is symmetric; chest is bilaterally symmetric; No lungs clear to percussion; lungs clear to auscultation; No crackles, No rhonchi, No rales, No stridor, No wheezing, No pleural rub, No other Cardiovascular: regular rate-rhythm; No extra beats, No parasternal heave is noted, No JVD, No edema, No bradycardia, No tachycardia, No point of maximal impulse, No cardiac thrills are palpable; S1 and S2; No gallop/S3, No gallop/S4 , No diastolic murmur, No systolic murmur, No friction rub, No click, No other Gastrointestional: No tender, No soft, No round, No distended, No pulsatile mass, No organomegaly, No guarding, No rebound, No tenderness, No hernia, No mass, No audible bowel sounds, No abnormal bowel sounds, No abdominal bruits, No spleenomegaly, No other Extremities: No normal range of motion, No non-tender, No normal inspection, No pedal edema, No calf tenderness, No normal capillary refill, No pelvis stable , No calf tenderness, No inflammation, No pedal edema, No slow capillary refill , No swelling, No other, No abrasion, No clubbing, No cyanosis, No ecchymosis, No laceration, No no lower extremity edema bilateral, No significant edema, No tenderness, No wound Neurologic/Psychiatric: no motor/sensory deficits, alert, normal mood/affect, oriented x 3 Skin: No normal color, No warm/dry, No cyanosis, No cool, No diaphoresis, No damp, No ecchymosis, No jaundice, No mottled, No pallor, No rash, No tattoos/ piercings, No ulcerations, No rash on exposed areas, No ulcerations on exposed areas, No other Results/Procedures: Labs Laboratory Tests 06/24/18 11:44: Glucometer 135H 06/24/18 16:55: Glucometer 139H 06/24/18 21:41: Glucometer 166H 06/25/18 06:19: Glucometer 120H 06/25/18 10:27: Sodium Level 139, Potassium Level 4.2, Chloride Level 94L, Carbon Dioxide Level 36H, Anion Gap 9, Blood Urea Nitrogen 19H, Creatinine 1.44H, Estimat Glomerular Filtration Rate 37, BUN/Creatinine Ratio 13, Glucose Level 143H, Calcium Level 8.9 Microbiology 06/22/18 MRSA Screen - Final, Complete MRSA not isolated A/P: Assessment/Dx: Admission Diagnosis sinus tachycardia Hypertension Coronary artery disease Chronic renal insufficiency Anemia, Shortness of breath Plan: Shortness of breath, likely fluid accumulation, extra Lasix given yesterday. Will give IV Lasix 160 mg x 1 today. Sinus tachycardia, multifactorial, history of paroxysmal atrial fibrillation. Borderline BP : decrease Lopressor to 25mg bid. Status post respiratory failure with pneumonia and UTI and sepsis. Improved, receiving physical therapy Debility and generalized weakness. Receiving physical therapy Anemia- worsening. Has been following with Dr. Field. Port placed. Coronary artery disease, history of CABG 4 done in February 2018. Clinically stable. Continue to monitor History of paroxysmal atrial fibrillation, unable to tolerate oral anticoagulation due to recurrent GI bleed. Moderate size left pericardial effusion, persistent since the bypass surgery. Maintained on Lasix, continue to monitor. Congestive heart failure, chronic left ventricular diastolic dysfunction, secondary to hypertension. Hypertension, controlled on current medication, continue to monitor History of hepatic cirrhosis, unknown etiology. Scheduled to see a director global medical affairs as an outpatient History of esophageal paresis and gastritis. Followed and managed by primary care physician next History of GAVE History of ascites secondary to hepatic cirrhosis Status post pneumonia and UTI resulted in septic shock and encephalopathy Status post respiratory failure. Obesity, BMI 45 Thank you for your consultation. Please call me if you have any questions. Estela Jorge MD, FACP, FACC, FSCAI, FHRS, CCDS Interventional Cardiology Cardiac Electrophysiology Vascular Medicine and Endovascular Interventions Wei JORGE MD Jun 25, 2018 10:26 am
[2018-06-25 10:50] LABS: CALCIUM 8.9 MG/DL (8.5-10.1); CREATININE SERUM 1.44 MG/DL (0.60-1.30); POTASSIUM 4.2 MMOL/L (3.6-5.0)
--- NOTE | 2018-06-25 11:07 | PM&R Progress Note ---
Subjective This was a face to face visit with the patient. Date Seen by Provider: Jun 25, 2018 Time Seen by Provider: 08:20 Subjective/Events-last exam Patient was seen in her room in the bathroom while occupational therapy was working with her. Moe wraps off in order to evaluate her lower legs of which she states that the left leg is red I assessed the area on her left leg to be due to venous stasis dermatitis and have ordered triamcinolone twice daily and allow to absorb then place moe wraps Received 160 mg of Lasix 1 yesterday and holding oral Lasix and has had a significant amount of urinary output ~2000+ Blood pressure has been labile and holding some medication when it's too low Receive the 2 units of blood yesterday and has felt much better We'll check CBC every [address] Field recommendation Had a bowel movement yesterday We'll have to monitor electrolytes closely due to diuresis Date Identified: Jun 25, 2018 Time Identified: 08:15 Medication Intervention: Left lower extremity subtle and early venous stasis dermatitis Review of Systems General: Fatigue Pulmonary: Dyspnea Cardiovascular: Edema Objective Physician Exam Last Set of Vital Signs Vital Signs Date Time Temp Pulse Resp B/P (MAP) Pulse Ox O2 Delivery O2 Flow Rate FiO2 06/25/18 09:26 104 18 115/70 (85) 06/25/18 06:00 97.4 96 Room Air 06/24/18 23:25 2.00 Capillary Refill : I&O Intake and Output 06/25/18 00:00 Intake Total 1040 ml Output Total 1550 ml Balance -510 ml Intake Oral 1040 ml Output Urine Total 1550 ml General: Alert, Oriented X3, Cooperative, No Acute Distress HEENT: Atraumatic, PERRLA, EOMI, Mucous Memb Moist/[place] Neck: Supple, No JVD, No Thyromegaly, +2 Carotid Pulse No Bruit, No LAD Lungs: Clear to Auscultation, Normal Air Movement, Other (diminished BS bases especially left) Heart: Regular Rate, Normal S1, Normal S2 Abdomen: Normal Bowel Sounds, Soft, No Tenderness, No Hepatosplenomegaly, No Masses Extremities: No Clubbing, No Cyanosis, Other (edema noted lower legs) Skin: No Rashes, No Breakdown, No Significant Lesion, Other (Subtle venous stasis dermatitis left lower leg) Neuro: Normal Speech, Normal Tone, Sensation Intact, Cranial Nerves 3-12 NL, Reflexes 2+, Other (global weakness of all extremities 4/5) Psych/Mental Status: Mental Status NL, Mood NL Results Lab Data Laboratory Tests 06/22/18 11:29: Glucometer 128H 06/22/18 16:46: Glucometer 116H 06/22/18 20:18: Glucometer 157H 06/22/18 21:40: Stool Occult Blood Immunoassay POSITIVEH 06/22/18 22:20: Hemoglobin 8.2L, Hematocrit 28L 06/23/18 06:15: Glucometer 209H 06/23/18 11:27: Glucometer 149H 06/23/18 11:47: Hemoglobin 8.1L, Hematocrit 27L, White Blood Count 3.0L, Red Blood Count 2.67L, Mean Corpuscular Volume 99, Mean Corpuscular Hemoglobin 30, Mean Corpuscular Hemoglobin Concent 31L, Red Cell Distribution Width 16.5H, Platelet Count 129L, Mean Platelet Volume 9.6, Neutrophils (%) (Auto) 58, Lymphocytes (%) (Auto) 19, Monocytes (%) (Auto) 14H, Eosinophils (%) (Auto) 8, Basophils (%) (Auto) 1, Neutrophils # (Auto) 1.7L, Lymphocytes # (Auto) 0.6L, Monocytes # (Auto) 0.4, Eosinophils # (Auto) 0.3, Basophils # (Auto) 0.0, Prothrombin Time 16.1H, INR Comment 1.3, Activated Partial Thromboplast Time 31, Sodium Level 137, Potassium Level 4.1, Chloride Level 93L, Carbon Dioxide Level 37H, Anion Gap 7, Blood Urea Nitrogen 20H, Creatinine 1.53H, Estimat Glomerular Filtration Rate 35 , BUN/Creatinine Ratio 13, Glucose Level 137H, Calcium Level 8.6, Corrected Calcium 9.6, Phosphorus Level 3.3, Magnesium Level 1.3L, Total Bilirubin 0.7, Aspartate Amino Transf (AST/SGOT) 26, Alanine Aminotransferase (ALT/SGPT) 8, Alkaline Phosphatase 58, B-Type Natriuretic Peptide 330.5H, Total Protein 6.1L, Albumin 2.7L, Thyroid Stimulating Hormone (TSH) 8.21H 06/23/18 16:33: Glucometer 213H 06/23/18 21:34: Glucometer 166H 06/24/18 05:48: Glucometer 142H 06/24/18 05:50: White Blood Count 2.5L, Red Blood Count 2.42L, Hemoglobin 7.4L, Hematocrit 24L, Mean Corpuscular Volume 100H, Mean Corpuscular Hemoglobin 31, Mean Corpuscular Hemoglobin Concent 31L, Red Cell Distribution Width 16.1H, Platelet Count 119L, Mean Platelet Volume 9.7, Neutrophils (%) (Auto) 51, Lymphocytes (%) (Auto) 28, Monocytes (%) (Auto) 13H, Eosinophils (%) (Auto) 8, Basophils (%) (Auto) 0, Neutrophils # (Auto) 1.3L, Lymphocytes # (Auto) 0.7L, Monocytes # (Auto) 0.3, Eosinophils # (Auto) 0.2, Basophils # (Auto) 0.0 06/24/18 11:44: Glucometer 135H 06/24/18 16:55: Glucometer 139H 06/24/18 21:41: Glucometer 166H 06/25/18 06:19: Glucometer 120H 06/25/18 10:27: Sodium Level 139, Potassium Level 4.2, Chloride Level 94L, Carbon Dioxide Level 36H, Anion Gap 9, Blood Urea Nitrogen 19H, Creatinine 1.44H, Estimat Glomerular Filtration Rate 37, BUN/Creatinine Ratio 13, Glucose Level 143H, Calcium Level 8.9 Microbiology 06/22/18 MRSA Screen - Final, Complete MRSA not isolated Assessment/Plan Assessment and Plan Assessment: 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 Severe edema requiring large doses of IV diuretics History of electrolyte abnormalities monitoring potassium and magnesium closely History of transfusion dependency due to chronic GI bleed receiving blood for hemoglobin less than 8.0 Left pleural effusion Oxygen dependency Plan: Continue therapies but edema is limiting factor for mobility in addition to shortness of breath and anemia requiring oxygen and blood transfusions Check CBC and CMP tomorrow Monitor creatinine closely Very complex medical issues requiring inpatient stay while cardiology, pulmonology, hematology specialties monitor the patient closely due to high risk for decompensation (1) Myopathy Status: Acute (2) 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 (3) Atrial fibrillation Qualifiers: Qualified Codes: I48.0 - Paroxysmal atrial fibrillation Status: Chronic (4) Hypothyroidism Qualifiers: Qualified Codes: E03.9 - Hypothyroidism, unspecified Status: Chronic (5) Coronary artery disease Qualifiers: Qualified Codes: I25.10 - Atherosclerotic heart disease of [place] coronary artery without angina pectoris Status: Chronic (6) Hypertension Qualifiers: Qualified Codes: I10 - Essential (primary) hypertension Status: Chronic (7) GI bleeding Qualifiers: Qualified Codes: K31.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 Status: Chronic (8) Transfusion-dependent anemia Status: Chronic (9) Type 2 diabetes mellitus with hyperglycemia Qualifiers: Qualified Codes: E11.65 - Type 2 diabetes mellitus with hyperglycemia; Z79.4 - account installation specialist (current) use of insulin Status: Chronic (10) Oxygen dependent Status: Chronic (11) Loss of weight Status: Acute (12) Hypoxia Status: Chronic (13) CKD (chronic kidney disease) Status: Chronic (14) Portal hypertension Status: Chronic (15) Edema Qualifiers: Qualified Codes: R60.1 - Generalized edema Status: Acute (16) Port-A-Cath in place Status: Acute (17) Poor venous access Status: Acute (18) Left shoulder pain Qualifiers: Qualified Codes: M25.512 - Pain in left shoulder (19) Hx of CABG Status: Chronic (20) B12 deficiency Status: Chronic (21) Contraindication to anticoagulation therapy Status: Chronic (22) Contraindication to antiplatelet therapy Status: Chronic (23) Venous stasis dermatitis Qualifiers: Qualified Codes: I87.2 - Venous insufficiency (chronic) (peripheral) Status: Acute Co-Morbidities that are continuing to impact the rehab process: (include details ) MICHELLE GARCIA DO Jun 25, 2018 11:07
--- NOTE | 2018-06-25 11:08 | Physical Therapy Daily Note ---
PT Daily Note-Current Subjective Pt. c/o she is cold. A little tearful today and states she is discouraged. Pain Numeric Pain Scale: 4 Location: Left Location Body Site: Shoulder Pain Description: Throbbing Appearance appears tired and groggy, states she didnt sleep well last night Mental Status Patient Orientation: Normal For Age Attachments: Oxygen (2L) Transfers Therapy Code Descriptions/Definitions Functional [place] Measure: 0=Not Assessed/NA 4=Minimal Assistance 1=Total Assistance 5=Supervision or Setup 2=Maximal Assistance 6=Modified [place] 3=Moderate Assistance 7=Complete [place] Therapy Quality Codes: 6 Independent with activity with or without an assistive device 5 Patient requires set up or clean up by helper. Patient completes activity by themselves 4 Supervision or touching assist (CGA). [place] provide cues , steadying assist 3 The helper provides less than half the effort to complete the activity 2 The helper provides more than half the effort to complete the activity 1 Dependent. The helper does all the effort to complete an activity 7 Patient refused to complete or attempt activity 9 The patient did not perform the activity before the current illness or injury 88 Not attempted due to Medical conditions or safety concerns Transfers (B, C, W/C) (FIM): 5 Scootin Rollin Sit to/from Stand: 5 Weight Bearing Right Lower Extremity: Right Weight Bearing/Tolerated Left Lower Extremity: Left Weight Bearing/Tolerated Gait Training Does the Patient Walk?: Yes Gait (FIM): 2 Distance (FIM): 9=060-21 ft (50x2,75) Gait Level of Assist: 4 Gait Persons Needed: 1 Gait Assistive Device: FWW w/c to follow, pt states knee feels it might give Exercises Seated Therapy Exercises: Ankle pumps, Sit to stand, Long arc quads, Hip flexion, Hip abd/add Seated Reps: 12 Standing: Hip Abduction, Heel/toe raises, Marching Standing Reps: 12 NuStep Minutes: 10 NuStep Workload: 2 Assessment Current Status: Good Progress fatigued, no c/o SOB, rested frequently PT Short Term Goals Short Term Goals Time Frame: Jun 25, 2018 Transfers (B,C,W/C) (FIM): 4 Gait (FIM): 1 Gait Distance Comment: 25' Gait Level of Assist: 4 Gait Assistive Device: FWW Wheelchair Distance: 150' PT Fdc Goals Secondary Art Teacher Goals PT Secondary Art Teacher Goals Time Frame: Jul 09, 2018 Transfers (B,C,W/C) (FIM): 5 Sit to Lying (QC): 4 Lying-Sitting on Side/Bed(QC): 4 Sit to Stand (QC): 4 Rollin Roll Left to Right (QC): 4 Chair/Hzu-tz-Fvlom Xfer(QC): 4 Car Transfer (QC): 4 Gait (FIM): 2 Distance: 50' Walk 10 feet (QC): 4 Walk 10ft-Uneven Surface(QC): 4 Walk 50ft with 2 Turns (QC): 4 Gait Level of Assist: 5 Gait Assistive Device: FWW Stairs (FIM): 1 # of Steps: 1 1 Step (curb) (QC): 4 Stairs Level Of Assist: 4 PT Plan Treatment/Plan Treatment Plan: Continue Plan of Care Treatment Plan: Bed Mobility, Concurrent Therapy, Education, Functional Activity Tamy, Functional Strength, Group Therapy, Gait, Safety, Therapeutic Exercise, Transfers Treatment Duration: Jul 09, 2018 Frequency: At least 5 of 7 days/Wk (IRF) Estimated Hrs Per Day: 1.5 hours per day Patient and/or Family Agrees t: Yes Safety Risks/Education Patient Education: Gait Training, Transfer Techniques, Correct Positioning, Disease Process, Safety Issues Teaching Recipient: Patient Teaching Methods: Demonstration, Discussion Response to Teaching: Verbalize Understanding, Return Demonstration, Reinforcement Needed needs cues to lock w/c etc Time/GCodes Time In: 1000 Time Out: 1100 Total Billed Treatment Time: 60 Total Billed Treatment 1,FA20m,GT15m,EX25m G Codes Necessary: MARIO Barrera [employer] BPM DEVELOPER Jun 25, 2018 11:08
[2018-06-25] MEDS: TRIAMCINOLONE 0.1% CR (KENALOG) 15 GM TUBE TOP SCH ×2 (11:30→20:52)
--- NOTE | 2018-06-25 12:32 | Occupational Ther Daily Note ---
OT Current Status-Daily Note Subjective Pt in bed, agrees to treatment. Pt reports 6/10 pain in left shoulder Mental Status/Objective Therapy Code Descriptions/Definitions Functional [place] Measure: 0=Not Assessed/NA 4=Minimal Assistance 1=Total Assistance 5=Supervision or Setup 2=Maximal Assistance 6=Modified [place] 3=Moderate Assistance 7=Complete [place] Attachments: Oxygen ADL-Treatment Supine to sit with supervision. Pt requests to shower this morning. Sit to stand with SBA. Gait to restroom with FWW. Pt sat at sink to brush teeth with set up. Transfer to walk in shower with CGA for safety. Pt completed seated bathing using hand held shower. Upper body bathing with SBA. Pt able to wash bilateral upper legs and radha area. Used long handled sponge to wash lower legs and feet. CGA for balance during standing to wash buttocks. Pt donned bra with minimal assistance. Donned pullover shirt with set up. Pt used dressing stick to start underwear and pants over feet. Stood with CGA for balance during pant hike. Transfer to toilet with supervision. Pt required CGA for toileting. Washed hands with SBA while standing at sink. Pt required increased time for ADL tasks. Occasional rest breaks throughout session. Pt sitting in chair with needs met after session. Therapy Code Descriptions/Definitions Functional [place] Measure: 0=Not Assessed/NA 4=Minimal Assistance 1=Total Assistance 5=Supervision or Setup 2=Maximal Assistance 6=Modified [place] 3=Moderate Assistance 7=Complete [place] Therapy Quality Codes: 6 Independent with activity with or without an assistive device 5 Patient requires set up or clean up by helper. Patient completes activity by themselves 4 Supervision or touching assist (CGA). [place] provide cues , steadying assist 3 The helper provides less than half the effort to complete the activity 2 The helper provides more than half the effort to complete the activity 1 Dependent. The helper does all the effort to complete an activity 7 Patient refused to complete or attempt activity 9 The patient did not perform the activity before the current illness or injury 88 Not attempted due to Medical conditions or safety concerns Grooming (FIM): 5 Oral Hygiene (QC): 5 Bathing (FIM): 4 (CGA) Shower/Bathe Self (QC): 4 Upper Body (FIM): 4 Upper Body Dressing (QC): 3 Lower Body Dressing (FIM): 4 Lower Body Dressing (QC): 4 Toileting (FIM): 4 Toileting Hygiene (QC): 4 Toilet/Commode Transfer (FIM): 5 Toilet Transfer (QC): 4 Shower Transfer(FIM): 4 OT Short Term Goals Short Term Goals Time Frame: Jun 25, 2018 Lower Body Dressing(FIM): 5 Toileting(FIM): 5 Transfers (B,C,W/C) (FIM): 4 Toilet/Commode Transfer(FIM): 5 1=Demonstrate adherence to instructed precautions during ADL tasks. 2=Patient will verbalize/demonstrate understanding of assistive devices/ modifications for ADL. 3=Patient will improve strength/tolerance for activity to enable patient to perform ADL's. OT Commission Specialist Goals Commission Specialist Goals Time Frame: Jul 09, 2018 Eating (FIM): 6 Eating (QC): 6 Groomin Oral Hygiene (QC): 6 Bathing(FIM): 6 Shower/Bathe Self (QC): 6 Upper Body Dressing(FIM): 6 Upper Body Dressing (QC): 6 Lower Body Dressing(FIM): 6 Lower Body Dressing (QC): 6 On/Off Footwear (QC): 6 Toileting(FIM): 6 Toileting Hygiene (QC): 6 Toilet/Commode Transfer(FIM): 6 Toilet/Commode Transfer (QC): 6 Shower Transfer(FIM): 5 Additional Goals: 1-Demonstrate ADL Tasks, 2-Verbalize Understanding, 3- ImproveStrength/Tamy 1=Demonstrate adherence to instructed precautions during ADL tasks. 2=Patient will verbalize/demonstrate understanding of assistive devices/ modifications for ADL. 3=Patient will improve strength/tolerance for activity to enable patient to perform ADL's. OT Education/Plan Problem List/Assessment Pt demonstrates decreased activity tolerance, strength, mobility, and ADL functioning. Pt to benefit from skilled OT intervention for ADL training, transfers, strengthening, and home safety education to increase functional independence and allow safe discharge home. Discharge Recommendations Plan/Recommendations: Continue POC Treatment Plan/Plan of Care Patient would benefit from OT for education, treatment and training to promote independence in ADL's, mobility, safety and/or upper extremity function for ADL' s. Plan of Care: ADL Retraining, Functional Mobility, Group Exercise/Act as Ind, UE Funct Exercise/Act Treatment Duration: Jul 09, 2018 Frequency: At least 5 of 7 days/Wk (IRF) Estimated Hrs Per Day: 1.5 hours per day Agreement: Yes Rehab Potential: Fair Time/GCodes Start Time: 08:00 Stop Time: 09:00 Total Time Billed (hr/min): 0930 Billed Treatment Time 1 visit, ADLx6(90minutes) LAURA CARIAS OT Jun 25, 2018 12:32
--- NOTE | 2018-06-25 14:07 | Physical Therapy Daily Note ---
PT Daily Note-Current Subjective Stats she has gone to the bathroom to urinate a lot this afternoon. Wants to try to do more walking this after noon. Pain Numeric Pain Scale: 3 Location: Left Location Body Site: Shoulder Pain Description: Ache Mental Status Patient Orientation: Normal For Age Transfers Therapy Code Descriptions/Definitions Functional [place] Measure: 0=Not Assessed/NA 4=Minimal Assistance 1=Total Assistance 5=Supervision or Setup 2=Maximal Assistance 6=Modified [place] 3=Moderate Assistance 7=Complete [place] Therapy Quality Codes: 6 Independent with activity with or without an assistive device 5 Patient requires set up or clean up by helper. Patient completes activity by themselves 4 Supervision or touching assist (CGA). [place] provide cues , steadying assist 3 The helper provides less than half the effort to complete the activity 2 The helper provides more than half the effort to complete the activity 1 Dependent. The helper does all the effort to complete an activity 7 Patient refused to complete or attempt activity 9 The patient did not perform the activity before the current illness or injury 88 Not attempted due to Medical conditions or safety concerns in out bed, on off toilet, in out chair all SBA to Mod I Weight Bearing Right Lower Extremity: Right Weight Bearing/Tolerated Left Lower Extremity: Left Weight Bearing/Tolerated Gait Training Does the Patient Walk?: Yes Distance (FIM): 0=912-00 ft (75 ft x 3) Gait Level of Assist: 4 Gait Persons Needed: 1 Gait Assistive Device: FWW instruction in use of extended O2 tubing , good management observed Exercises Seated Therapy Exercises: Ankle pumps, Sit to stand, Long arc quads, Hip flexion Seated Reps: 12 Treatments toileted and washed hands in bathroom with SBA Assessment Current Status: Good Progress noted improvement in mobility PT Short Term Goals Short Term Goals Time Frame: Jun 25, 2018 Transfers (B,C,W/C) (FIM): 4 Gait (FIM): 1 Gait Distance Comment: 25' Gait Level of Assist: 4 Gait Assistive Device: FWW Wheelchair Distance: 150' PT Usp Goals Usp Goals PT Usp Goals Time Frame: Jul 09, 2018 Transfers (B,C,W/C) (FIM): 5 Sit to Lying (QC): 4 Lying-Sitting on Side/Bed(QC): 4 Sit to Stand (QC): 4 Rollin Roll Left to Right (QC): 4 Chair/Ces-of-Vwrwz Xfer(QC): 4 Car Transfer (QC): 4 Gait (FIM): 2 Distance: 50' Walk 10 feet (QC): 4 Walk 10ft-Uneven Surface(QC): 4 Walk 50ft with 2 Turns (QC): 4 Gait Level of Assist: 5 Gait Assistive Device: FWW Stairs (FIM): 1 # of Steps: 1 1 Step (curb) (QC): 4 Stairs Level Of Assist: 4 PT Plan Treatment/Plan Treatment Plan: Continue Plan of Care Treatment Plan: Bed Mobility, Concurrent Therapy, Education, Functional Activity Tamy, Functional Strength, Group Therapy, Gait, Safety, Therapeutic Exercise, Transfers Treatment Duration: Jul 09, 2018 Frequency: At least 5 of 7 days/Wk (IRF) Estimated Hrs Per Day: 1.5 hours per day Patient and/or Family Agrees t: Yes Safety Risks/Education Patient Education: Gait Training, Transfer Techniques, Correct Positioning, Disease Process, Safety Issues Teaching Recipient: Patient Teaching Methods: Demonstration, Discussion Response to Teaching: Verbalize Understanding, Return Demonstration, Reinforcement Needed Time/GCodes Time In: 1330 Time Out: 1400 Total Billed Treatment Time: 30 Total Billed Treatment 1,FA10m,GT20m G Codes Necessary: MARIO Barrera WEIGHT LOSS PHYSICIAN Jun 25, 2018 14:06
[2018-06-25] MEDS: SENNA W/DOCUSATE (SENOKOT S) TABLET PO SCH (20:53)
[2018-06-25] MEDS: NITROGLYCERIN 0.4 MG SL TABS BTL 25'S SL PRN ×2 (21:43→22:00)
--- NOTE | 2018-06-25 21:43 | NUR ---
pt c/o chest pain, skin w/d color pink, no difficulty breathing. nitro .4mg sl given
--- NOTE | 2018-06-25 22:00 | NUR ---
cont c/o chest pain rates 6/10, nitro .4mg sl given. pt alert skin w/d color pink, no difficulty breathing
--- NOTE | 2018-06-25 22:25 | NUR ---
dr hardwick notified of pt c/o chest pain new order received
--- NOTE | 2018-06-25 22:50 | NUR ---
no further chest pain
--- NOTE | 2018-06-25 22:55 | NUR ---
dr steen called concerning dr hardwick request to give pt asa 81mg, dr steen states no , dr elizondo does not want pt on asa, et dr steen notes pt intolerant to antiplatlet meds et anticoagulation
--- NOTE | 2018-06-26 00:43 | NUR ---
pt resting quietly with eyes closed resp reg et easy
[2018-06-26 05:12] VITALS: BP 96/60
[2018-06-26] MEDS: KCL 20 MEQ TAB (K-DUR) PO SCH (06:12)
[2018-06-26] MEDS: PANTOPRAZOLE 40 MG (PROTONIX) TAB PO SCH ×2 (06:12→20:50)
[2018-06-26] MEDS: inSUlin ASPART (NovoLOG) 1 UNIT/0.01 ML (CHARGE PER UNIT) SC SCH ×4 (06:12→20:50)
[2018-06-26] MEDS: LEVOTHYROXINE 100 MCG (LEVOTHROID) TAB PO SCH (06:13)
--- NOTE | 2018-06-26 06:30 | NUR ---
pt rested most of noc with eyes closed resp reg et easy. no further c/o chest pain
[2018-06-26 06:33] LABS: BASOPHILS % (AUTO) 1 % (0-10); EOSINOPHILS # (AUTO) 0.2 10^3/uL (0.0-0.3); EOSINOPHILS % (AUTO) 9 % (0-10); HEMATOCRIT 28 % (35-52); HEMOGLOBIN 8.8 G/DL (11.5-16.0); LYMPHOCYTES # (AUTO) 0.6 X 10^3 (1.0-4.0); LYMPHOCYTES % (AUTO) 22 % (12-44); MEAN CORPUSCULAR HEMOGLOBIN 30 PG (25-34); MEAN CORPUSCULAR HGB CONC 32 G/DL (32-36); MEAN CORPUSCULAR VOLUME 95 FL (80-99); MEAN PLATELET VOLUME 9.7 FL (7.4-10.4); MONOCYTES # (AUTO) 0.3 X 10^3 (0.0-1.0); MONOCYTES % (AUTO) 12 % (0-12); NEUTROPHILS # (AUTO) 1.5 X 10^3 (1.8-7.8); NEUTROPHILS % (AUTO) 56 % (42-75); PLATELET COUNT 117 10^3/uL (130-400); RED BLOOD COUNT 2.93 10^6/uL (4.35-5.85); RED CELL DISTRIBUTION WIDTH 18.6 % (10.0-14.5); WHITE BLOOD COUNT 2.7 10^3/uL (4.3-11.0)
[2018-06-26 06:46] LABS: ALBUMIN 2.5 GM/DL (3.2-4.5); BILIRUBIN,TOTAL 0.7 MG/DL (0.1-1.0); CALCIUM 8.6 MG/DL (8.5-10.1); CREATININE SERUM 1.42 MG/DL (0.60-1.30); MAGNESIUM 1.3 MG/DL (1.8-2.4); POTASSIUM 4.1 MMOL/L (3.6-5.0); TOTAL PROTEIN 5.7 GM/DL (6.4-8.2)
[2018-06-26 07:40] VITALS: BP 141/65
[2018-06-26] MEDS: DIGOXIN 0.125 MG (LANOXIN) TAB PO SCH (07:54)
[2018-06-26] MEDS: meTOprolol TARTRATE 25 MG (LOPRESSOR) TABLET PO SCH ×2 (07:54→20:49)
[2018-06-26] MEDS: LORATADINE (CLARITIN) 10 MG TAB PO SCH (07:54)
[2018-06-26] MEDS: FOLIC ACID 1 MG TAB PO SCH (07:54)
[2018-06-26] MEDS: inSUlin NPH (NovoLIN N) 1 UNIT/0.01 ML (CHARGE PER UNIT) SQ SCH (07:55)
[2018-06-26] MEDS: TRIAMCINOLONE 0.1% CR (KENALOG) 15 GM TUBE TOP SCH ×2 (07:59→20:49)
--- NOTE | 2018-06-26 08:05 | Pulmonary Progress Note ---
Subjective Time Seen by a Provider: 08:04 Subjective/Events-last exam Pt had CP last night and received SL nitro. CP is now resolved. Denies SOB. Labs and imaging reviewed. Sepsis Event Evaluation Height, Weight, BMI Height: 5'4.00" Weight: 267lbs. 0.6oz. 121.343854ta; 45.0 BMI Method:Stated Exam Exam Vital Signs Date Time Temp Pulse Resp B/P (MAP) Pulse Ox O2 Delivery O2 Flow Rate FiO2 06/26/18 05:12 98.6 82 16 96/60 (72) 96 Nasal Cannula 2.00 06/25/18 22:05 97 16 117/55 (75) 96 Nasal Cannula 2.00 06/25/18 22:00 85 16 122/64 (83) 96 Nasal Cannula 2.00 06/25/18 21:48 97 16 124/66 (85) 96 Nasal Cannula 2.00 06/25/18 21:43 100 16 130/70 (90) 96 Nasal Cannula 2.00 06/25/18 21:00 95 Nasal Cannula 2.00 06/25/18 20:57 97.9 99 16 137/71 (93) 96 Nasal Cannula 2.00 06/25/18 19:50 Nasal Cannula 2.00 06/25/18 16:19 97.9 93 16 129/76 (93) 92 Nasal Cannula 2.00 06/25/18 09:26 104 18 115/70 (85) 06/25/18 09:00 Nasal Cannula 2.00 I & O 06/26/18 07:00 Intake Total 1350 ml Output Total 1500 ml Balance -150 ml Height & Weight Height: 5'4.00" Weight: 267lbs. 0.6oz. 121.363268ob; 45.0 BMI Method:Stated General Appearance: No Apparent Distress, WD/WN, Chronically ill, Obese HEENT: PERRL/EOMI, Normal ENT Inspection, Pharynx Normal Neck: Full Range of Motion, Normal Inspection, Non Tender, Supple, Carotid Bruit Respiratory: Chest Non Tender, No Accessory Muscle Use, No Respiratory Distress , Decreased Breath Sounds Cardiovascular: Regular Rate, Rhythm (right chest incision no signs of infection) Gastrointestinal: soft Extremity: Pedal Edema Neurologic/Psychiatric: Alert, Oriented x3, No Motor/Sensory Deficits, Normal Mood/Affect, Motor Weakness (4/5 all extremities) Skin: Normal Color, Warm/Dry Lymphatic: No Adenopathy Results Lab Laboratory Tests 06/25/18 10:27 06/26/18 06:25 Assessment/Plan Assessment/Plan Debility/myopathy secondary to extended hospital stay -Rehab CP last night - now resolved -Dr. Kebede was notified and treated patient with nitro Hypomagnesium -Replace Chronic respiratory failure including hypoxia -Oxygen - currently 2 liters -out patient PFT Left pleural effusion possibly secondary to ascites and diastolic CHF -Monitor Chronic liver disease with Portal HTN with hx of ascites - Lasix Anemia transfusion dependent -monitor -Occult stools Gastric antral vascular ectasia -Dx at hypothyroid Afib- chronic CAD -Cardiology following DM II BRISEIDA IBRAHIM DO Jun 26, 2018 08:05
[2018-06-26] MEDS: FUROSEMIDE 40 MG (LASIX) TAB PO SCH (08:15)
[2018-06-26] MEDS: MAGNESIUM 1 GM/100 ML IVPB 100 ML IV SCH ×2 (08:15→08:16)
--- NOTE | 2018-06-26 11:43 | Physical Therapy Daily Note ---
PT Daily Note-Current Subjective Pt states she doesn't feel she is doing as well as when she 1st came here due to her left shoulder pain since pulling herself up in bed and straining it. States her stomach is a little upset since breakfast and that she is having occasional dizziness. States she is not sure that she is going to eat lunch today Pain Numeric Pain Scale: 4 Comment: bilat knees and left shoulder Appearance pre treatment, pt sitting up in recliner with LE's elevated. Awake and alert, requesting to use restroom. Assisted pt with this At end of session, pt sitting up in recliner with LE's elevated, 3 pillows behind back and 2 under LE's per pt request. Phone, call light and bedside table within reach. All needs met at this time Mental Status Patient Orientation: Person, Place, Time, Eyes Open, Situation Attachments: Oxygen Transfers Therapy Code Descriptions/Definitions Functional [place] Measure: 0=Not Assessed/NA 4=Minimal Assistance 1=Total Assistance 5=Supervision or Setup 2=Maximal Assistance 6=Modified [place] 3=Moderate Assistance 7=Complete [place] Therapy Quality Codes: 6 Independent with activity with or without an assistive device 5 Patient requires set up or clean up by helper. Patient completes activity by themselves 4 Supervision or touching assist (CGA). [place] provide cues , steadying assist 3 The helper provides less than half the effort to complete the activity 2 The helper provides more than half the effort to complete the activity 1 Dependent. The helper does all the effort to complete an activity 7 Patient refused to complete or attempt activity 9 The patient did not perform the activity before the current illness or injury 88 Not attempted due to Medical conditions or safety concerns Transfers (B, C, W/C) (FIM): 5 Scootin (scooting fwd and bkwd in recliner and w/c) Sit to/from Stand: 5 Sit to Stand (QC): 5 Chair/Rba-qb-Fvaue Xfer(QC): 5 Bed to/from Chair: 5 SBA to CGA for safety due to pt report of dizziness and that her knees are feeling fatigued and painful with ambulation and states she has collapsed with them feeling this way before Weight Bearing Right Lower Extremity: Right Weight Bearing/Tolerated Left Lower Extremity: Left Weight Bearing/Tolerated Gait Training Does the Patient Walk?: Yes Gait (FIM): 2 Distance (FIM): 9=077-77 ft Distance: 50, 72, 50, 75, 53 Gait Level of Assist: 5 Gait Persons Needed: 1 Gait Assistive Device: FWW decreased step height and length, sway, WBOS, decreased trunk rotation, short distances due to pt c/o bilat knee pain, left shoulder pain and dizziness. Encouragement required to continue with gait Treatments safety, gait and transfer training Assessment increased knee and shoulder pain as well as dizziness during ambulation leading to several short distances this session. SBA with all transfers. following with w/c and O2 tank during gait training PT Short Term Goals Short Term Goals Time Frame: Jun 25, 2018 Transfers (B,C,W/C) (FIM): 4 Gait (FIM): 1 Gait Distance Comment: 25' Gait Level of Assist: 4 Gait Assistive Device: FWW Wheelchair Distance: 150' PT Group Home Goals Crusher Tender Goals PT Group Home Goals Time Frame: Jul 09, 2018 Transfers (B,C,W/C) (FIM): 5 Sit to Lying (QC): 4 Lying-Sitting on Side/Bed(QC): 4 Sit to Stand (QC): 4 Rollin Roll Left to Right (QC): 4 Chair/Eex-hy-Rsnui Xfer(QC): 4 Car Transfer (QC): 4 Gait (FIM): 2 Distance: 50' Walk 10 feet (QC): 4 Walk 10ft-Uneven Surface(QC): 4 Walk 50ft with 2 Turns (QC): 4 Gait Level of Assist: 5 Gait Assistive Device: FWW Stairs (FIM): 1 # of Steps: 1 1 Step (curb) (QC): 4 Stairs Level Of Assist: 4 PT Plan Problem List Problem List: Activity Tolerance, Functional Strength, Safety, Balance, Gait, Transfer Treatment/Plan Treatment Plan: Continue Plan of Care Treatment Plan: Bed Mobility, Concurrent Therapy, Education, Functional Activity Tamy, Functional Strength, Group Therapy, Gait, Safety, Therapeutic Exercise, Transfers Treatment Duration: Jul 09, 2018 Frequency: At least 5 of 7 days/Wk (IRF) Estimated Hrs Per Day: 1.5 hours per day Patient and/or Family Agrees t: Yes Safety Risks/Education Patient Education: Gait Training, Transfer Techniques, Safety Issues Teaching Recipient: Patient Teaching Methods: Demonstration, Discussion Response to Teaching: Verbalize Understanding, Return Demonstration Time/GCodes Time In: 1100 Time Out: 1140 Total Billed Treatment Time: 40 Total Billed Treatment 1 visit GT 30 min FA 10 min MARTIN DAVID PTA Jun 26, 2018 11:43
--- NOTE | 2018-06-26 12:06 | NUR ---
bedside report received from MAI MACKAY, assume care of pt
--- NOTE | 2018-06-26 12:54 | PM&R Progress Note ---
Subjective HPI/CC On Admission Date Seen by Provider: Jun 26, 2018 Time Seen by Provider: 10:40 Patient doing very well today Blood sugar was low last night so held insulin Willing to do a NovoLog sliding scale Denies any pain Lower extremity edema will require additional diuresis Appreciate cardiology, hematology, pulmonology consultation Maintained on 2 L of oxygen Bowels are moving Blood pressure stable Has no other issues Family just came to visit when I was completing my exam Subjective/Events-last exam Hemoglobin of 8.8 much improved after the 2 units of blood No aspirin cannot be given due to severe and chronic GI bleeding transfusion dependent Had an episode of chest pain last night and cardiology had requested an aspirin to be given but I stated it was contraindicated and have documented that in my note per Dr. Haywood hematology Lasix of 80 mg p.o. was restarted Creatinine remained stable Had 2 g of magnesium IV given today after labs revealed low levels Appreciate cardiology and pulmonology and hematology help with this very complex case Overall feels like she is much better just slow recovery Lower extremity edema seems to be improved especially with the Moe wraps and prior high dose of Lasix Review of Systems General: Fatigue Cardiovascular: Chest Pain, Edema Musculoskeletal: arm pain, leg pain Objective Exam Vital Signs Vital Signs Date Time Temp Pulse Resp B/P (MAP) Pulse Ox O2 Delivery O2 Flow Rate FiO2 06/26/18 08:07 Nasal Cannula 2.00 06/26/18 07:40 85 141/65 (90) 06/26/18 05:12 98.6 16 96 Capillary Refill : General Appearance: No Apparent Distress, WD/WN, Chronically ill, Obese Respiratory: Chest Non Tender, Lungs Clear, Normal Breath Sounds, No Accessory Muscle Use, No Respiratory Distress, Decreased Breath Sounds Cardiovascular: No Gallop, No JVD, No Murmur, Normal Peripheral Pulses, Irregularly Irregular Extremity: Pedal Edema Neurologic/Psychiatric: Alert, Oriented x3, No Motor/Sensory Deficits, Normal Mood/Affect Skin: Normal Color, Warm/Dry Results/Procedures Lab Laboratory Tests 06/26/18 06:25 Patient resulted labs reviewed. 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 Haywood has received 50 units of blood over the past 1 year and needs ablation on gastric bleeder Type II diabetes mellitus Chronic GI bleeding CAD Previous bypass Hyperlipidemia Hypothyroidism History of hepatitis B COPD Thrombocytopenia Chronic renal insufficiency Hypertension Long's esophagus Chronic diastolic heart failure Morbid obesity Edema requiring Lasix with K+ and wide MOE wraps Left pleural effusion Poor venous access requiring [place] port placement 06/22/[address] Holt Chronic angina Plan: Appreciate Drs Emir, Gwendolyn, Sheila on this complex block and case maker labs every other day per Dr Field Wide moe wraps to lower legs to facilitate edema resolution Therapies Port placement maintained Transfusion for hgb < 8.0 B12 supplement restarted DC ASA due to severe bleeding risk 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 (3) Atrial fibrillation Status: Chronic Qualifiers: Atrial fibrillation type: paroxysmal Qualified Codes: I48.0 - Paroxysmal atrial fibrillation (4) Hypothyroidism Status: Chronic Qualifiers: Hypothyroidism type: acquired Qualified Codes: E03.9 - Hypothyroidism, unspecified (5) Coronary artery disease Status: Chronic Qualifiers: Coronary Disease-Associated Artery/Lesion type: [place] artery [place] vs. transplanted heart: [place] heart Associated angina: without angina Qualified Codes: I25.10 - Atherosclerotic heart disease of [place] coronary artery without angina pectoris (6) Hypertension Status: Chronic Qualifiers: Hypertension type: essential hypertension Qualified Codes: I10 - Essential (primary) hypertension (7) GI bleeding Status: Chronic Qualifiers: GI bleed type/associated pathology: angiodysplasia of stomach and duodenum Qualified Codes: K31.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 (8) Transfusion-dependent anemia Status: Chronic (9) Type 2 diabetes mellitus with hyperglycemia Status: Chronic Qualifiers: 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: with 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 apprentice use Qualified Codes : E11.65 - Type 2 diabetes mellitus with hyperglycemia; 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 (10) Oxygen dependent Status: Chronic (11) Loss of weight Status: Acute (12) Hypoxia Status: Chronic (13) CKD (chronic kidney disease) Status: Chronic Qualifiers: Chronic kidney disease stage: stage 3 (moderate) Qualified Codes: N18.3 - Chronic kidney disease, stage 3 (moderate) (14) Portal hypertension Status: Chronic (15) Edema Status: Acute Qualifiers: Edema type: generalized Qualified Codes: R60.1 - Generalized edema (16) Port-A-Cath in place Status: Acute (17) Poor venous access Status: Acute (18) Left shoulder pain Qualifiers: Chronicity: acute Qualified Codes: M25.512 - Pain in left shoulder (19) Hx of CABG Status: Chronic (20) B12 deficiency Status: Chronic (21) Contraindication to anticoagulation therapy Status: Chronic (22) Contraindication to antiplatelet therapy Status: Chronic (23) Venous stasis dermatitis Status: Acute Qualifiers: Laterality: left Qualified Codes: I87.2 - Venous insufficiency (chronic) ( peripheral) (24) Neutropenia Status: Chronic Qualifiers: Neutropenia type: unspecified Qualified Codes: D70.9 - Neutropenia, unspecified Clinical Quality Measures Admission Status Admission Dx Assessment: Critical illness myopathy with severe debilitating requiring inpatient rehabilitation prior to going home to return to independent living Hypoxia requiring 2 L of oxygen supplementation 05/01 Paroxysmal atrial fibrillation Transfusion dependent anemia managed by Dr. Haywood Type II diabetes mellitus Chronic GI bleeding CAD Previous bypass Hyperlipidemia Hypothyroidism History of hepatitis B COPD Thrombocytopenia Chronic renal insufficiency Hypertension Long's esophagus Chronic diastolic heart failure Morbid obesity Plan: Continue diuresis of 80 mg Lasix by mouth daily Evaluate cardiac meds per Dr. Sheila Filed evaluation and management of transfusion-dependent anemia Appreciate pulmonology consultation for hypoxemia and maintain oxygen DVT/VTE Risk/Contraindication: Risk Factor Score Per Nursin RFS Level Per Nursing on Admit: 4+=Very High MICHELLE GARCIA DO Jun 26, 2018 12:54
[2018-06-26] MEDS: ONDANSETRON 8 MG (ZOFRAN) ORAL DISSOLVE TAB PO PRN (13:18)
--- NOTE | 2018-06-26 13:18 | NUR ---
up in the chair visiting with friends, c/o slight nausea Zofran 8mg po given
--- NOTE | 2018-06-26 14:30 | NUR ---
back to bed pt states will try to order something to eat now
--- NOTE | 2018-06-26 15:15 | NUR ---
ate 50% of lunch tray
[2018-06-26 16:00] VITALS: BP 133/61
[2018-06-26 17:50] VITALS: BP 133/61
--- NOTE | 2018-06-26 19:14 | NUR ---
bedside report given to BERTO MACKAY
--- NOTE | 2018-06-26 20:02 | Progress Note-Cardiology ---
Cardiology SOAP Progress Note Subjective: Chest pain last night, lasting 30-60 min, lower midsternal and epigastric, radiating to the mid back, mod to mod severe, resolving w/o any particular intervention, no aggravating or relieving factors, not associated with other symptoms, w/o recurrence Has chronic malaise Chronic exertional shortness of breath No palp No recent syncope Objective: I&O/Vital Signs 06/26/18 06/26/18 08:07 17:50 Temp 98.4 Pulse 97 Resp 18 B/P (MAP) 133/61 (85) Pulse Ox 97 O2 Delivery Nasal Cannula Nasal Cannula O2 Flow Rate 2.00 2.00 06/26/18 00:00 Intake Total 700 ml Output Total 1500 ml Balance -800 ml Weight (Pounds): 267 Weight (Ounces): 0.6 Weight (Calculated Kilograms): 121.476205 Constitutional: AAO x 3, well-developed, well-nourished, other (obese) Respiratory: chest is bilaterally symmetric, lungs clear to auscultation, other (tenderness over lower sternum) Cardiovascular: regular rate-rhythm, S1 and S2, systolic murmur (soft KAVITA at card base) Gastrointestional: No tender; soft; No guarding, No rebound; audible bowel sounds Extremities: No clubbing, No cyanosis, No significant edema Neurologic/Psychiatric: alert, normal mood/affect, oriented x 3, grossly intact , power is 5/5 both on sides Skin: warm/dry; No cyanosis, No cool, No diaphoresis, No rash on exposed areas , No ulcerations on exposed areas Results/Procedures: Labs Laboratory Tests 06/25/18 21:47: Glucometer 219H 06/26/18 04:32: Glucometer 140H 06/26/18 06:25: White Blood Count 2.7L, Red Blood Count 2.93L, Hemoglobin 8.8L, Hematocrit 28L, Mean Corpuscular Volume 95, Mean Corpuscular Hemoglobin 30, Mean Corpuscular Hemoglobin Concent 32, Red Cell Distribution Width 18.6H, Platelet Count 117L, Mean Platelet Volume 9.7, Neutrophils (%) (Auto) 56, Lymphocytes (%) (Auto) 22, Monocytes (%) (Auto) 12, Eosinophils (%) (Auto) 9, Basophils (%) (Auto) 1, Neutrophils # (Auto) 1.5L, Lymphocytes # (Auto) 0.6L, Monocytes # (Auto) 0.3, Eosinophils # (Auto) 0.2, Basophils # (Auto) 0.0, Sodium Level 139, Potassium Level 4.1, Chloride Level 93L, Carbon Dioxide Level 35H, Anion Gap 11, Blood Urea Nitrogen 19H, Creatinine 1.42H, Estimat Glomerular Filtration Rate 38, BUN/ Creatinine Ratio 13, Glucose Level 160H, Calcium Level 8.6, Corrected Calcium 9.8, Magnesium Level 1.3L, Total Bilirubin 0.7, Aspartate Amino Transf (AST/SGOT ) 25, Alanine Aminotransferase (ALT/SGPT) 8, Alkaline Phosphatase 58, Total Protein 5.7L, Albumin 2.5L 06/26/18 10:57: Glucometer 162H 06/26/18 17:21: Glucometer 158H Microbiology 06/22/18 MRSA Screen - Final, Complete MRSA not isolated Laboratory Tests 06/25/18 10:27 06/26/18 06:25 A/P: Assessment: Episode of chest discomfort on 06/25/18, self-resolving, etiology undetermined, no evidence of ACS Shortness of breath, likely multifactorial (see below) Congestive heart failure, chronic left ventricular diastolic dysfunction Obesity, BMI approx, with obesity-hypoventilation Sinus tachycardia, likely due to anemia Status post respiratory failure with pneumonia and UTI and sepsis, improved Debility and generalized weakness due to prolonged illness Anemia - probably related to GI bleed. Dr Field and Dr Morrell have not permitted the use of antiplatelet agents or anticoagulants Coronary artery disease, history of CABG 4 done in February 2018. History of paroxysmal atrial fibrillation, unable to tolerate oral anticoagulation due to recurrent GI bleed. Moderate size left pericardial effusion, persistent since the bypass surgery History of hepatic cirrhosis and ascites, unknown etiology History of esophageal paresis and gastritis and GAVE Plan: * I reviewed her records, interviewed and examined her, and answered her questions * Complex management due to multiple comorbidities * We recommend initiation of low-dose ASA when feasible from the standpoint of Hematology and Medical Services * Continue current regimen * Monitor labs ARNIE MCKEON MD FACP [facility] Jun 26, 2018 20:02
[2018-06-26] MEDS: SENNA W/DOCUSATE (SENOKOT S) TABLET PO SCH (20:50)
[2018-06-26] MEDS ORDERED: NON-FORMULARY MEDICATION 1 EA EA PO SCH (21:00)
[2018-06-27 05:08] VITALS: BP 107/58
[2018-06-27] MEDS: inSUlin ASPART (NovoLOG) 1 UNIT/0.01 ML (CHARGE PER UNIT) SC SCH ×4 (05:11→21:00)
[2018-06-27] MEDS: LEVOTHYROXINE 25 MCG (LEVOTHROID) TAB PO SCH (05:57)
[2018-06-27] MEDS: LEVOTHYROXINE 150 MCG (LEVOTHROID) TAB PO SCH (05:58)
[2018-06-27] MEDS: KCL 20 MEQ TAB (K-DUR) PO SCH (05:58)
--- NOTE | 2018-06-27 06:11 | PM&R Progress Note ---
Subjective HPI/CC On Admission Date Seen by Provider: Jun 27, 2018 Time Seen by Provider: 06:00 Patient doing very well today Blood sugar was low last night so held insulin Willing to do a NovoLog sliding scale Denies any pain Lower extremity edema will require additional diuresis Appreciate cardiology, hematology, pulmonology consultation Maintained on 2 L of oxygen Bowels are moving Blood pressure stable Has no other issues Family just came to visit when I was completing my exam Subjective/Events-last exam Patient doing well Slept well last night Bowels are moving Labs will be checked tomorrow including CBC CMP and magnesium every 48 hours Port is working out very well for the patient No blood in stools noted Left shoulder is working a little better Weakness and fatigue precludes fast recovery Appreciate all consultants help on this very complex case Review of Systems General: Fatigue Pulmonary: Dyspnea Objective Exam Vital Signs Vital Signs Date Time Temp Pulse Resp B/P (MAP) Pulse Ox O2 Delivery O2 Flow Rate FiO2 06/27/18 11:05 Nasal Cannula 2.00 06/27/18 05:08 98.2 85 18 107/58 (74) 97 Capillary Refill : General Appearance: No Apparent Distress, WD/WN, Chronically ill, Obese Respiratory: Chest Non Tender, Lungs Clear, Normal Breath Sounds, No Accessory Muscle Use, No Respiratory Distress, Decreased Breath Sounds (base) Cardiovascular: No Gallop, No JVD, No Murmur, Normal Peripheral Pulses, Irregularly Irregular Extremity: Pedal Edema Neurologic/Psychiatric: Alert, Oriented x3, No Motor/Sensory Deficits, Normal Mood/Affect Skin: Normal Color, Warm/Dry Results/Procedures Lab Patient resulted labs reviewed. 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 Haywood has received 50 units of blood over the past 1 year and needs ablation on gastric bleeder Type II diabetes mellitus Chronic GI bleeding CAD Previous bypass Hyperlipidemia Hypothyroidism History of hepatitis B COPD Thrombocytopenia Chronic renal insufficiency Hypertension Long's esophagus Chronic diastolic heart failure Morbid obesity Edema requiring Lasix with K+ and wide EMMA wraps improving Left pleural effusion Poor venous access requiring [place] port placement 06/22/[address] Holt Chronic angina Low magnesium level requiring magnesium supplementation Plan: Appreciate Gwendolyn Dumont Marji on this complex cyanide case hardener labs every other day per Dr Emir Ram emma wraps to lower legs to facilitate edema resolution Therapies Port placement maintained Transfusion for hgb < 8.0 B12 supplement restarted DC ASA due to severe bleeding risk 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 transplanted heart: jena heart Associated angina: without angina Qualified Codes: I25.10 - Atherosclerotic heart disease of [place] coronary artery without angina pectoris (6) Hypertension Status: Chronic Qualifiers: Hypertension type: essential hypertension Qualified Codes: I10 - Essential (primary) hypertension (7) GI bleeding Status: Chronic Qualifiers: GI bleed type/associated pathology: angiodysplasia of stomach and duodenum Qualified Codes: K31.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 (8) Transfusion-dependent anemia Status: Chronic (9) Type 2 diabetes mellitus with hyperglycemia Status: Chronic Qualifiers: 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 Qualified Codes : E11.65 - Type 2 diabetes mellitus with hyperglycemia; Z79.4 - roguer ( current) use of insulin (10) Oxygen dependent Status: Chronic (11) Loss of weight Status: Acute (12) Hypoxia Status: Chronic (13) CKD (chronic kidney disease) Status: Chronic Qualifiers: Chronic kidney disease stage: stage 3 (moderate) Qualified Codes: N18.3 - Chronic kidney disease, stage 3 (moderate) (14) Portal hypertension Status: Chronic (15) Edema Status: Acute Qualifiers: Edema type: generalized Qualified Codes: R60.1 - Generalized edema (16) Port-A-Cath in place Status: Acute (17) Poor venous access Status: Acute (18) Left shoulder pain Qualifiers: Chronicity: acute Qualified Codes: M25.512 - Pain in left shoulder (19) Hx of CABG Status: Chronic (20) B12 deficiency Status: Chronic (21) Contraindication to anticoagulation therapy Status: Chronic (22) Contraindication to antiplatelet therapy Status: Chronic (23) Venous stasis dermatitis Status: Acute Qualifiers: Laterality: left Qualified Codes: I87.2 - Venous insufficiency (chronic) ( peripheral) (24) Neutropenia Status: Chronic Qualifiers: Neutropenia type: unspecified Qualified Codes: D70.9 - Neutropenia, unspecified Clinical Quality Measures Admission Status Admission Dx Assessment: Critical illness myopathy with severe debilitating requiring inpatient rehabilitation prior to going home to return to independent living Hypoxia requiring 2 L of oxygen supplementation 05/01 Paroxysmal atrial fibrillation Transfusion dependent anemia managed by Dr. Haywood Type II diabetes mellitus Chronic GI bleeding CAD Previous bypass Hyperlipidemia Hypothyroidism History of hepatitis B COPD Thrombocytopenia Chronic renal insufficiency Hypertension Long's esophagus Chronic diastolic heart failure Morbid obesity Plan: Continue diuresis of 80 mg Lasix by mouth daily Evaluate cardiac meds per Dr. Sheila Field evaluation and management of transfusion-dependent anemia Appreciate pulmonology consultation for hypoxemia and maintain oxygen DVT/VTE Risk/Contraindication: Risk Factor Score Per Nursin RFS Level Per Nursing on Admit: 4+=Very High MICHELLE GARCIA DO Jun 27, 2018 06:11
[2018-06-27] MEDS: ACETAMINOPHEN 325 MG TABLET PO PRN (06:50)
[2018-06-27] MEDS: ONDANSETRON 8 MG (ZOFRAN) ORAL DISSOLVE TAB PO PRN ×2 (06:51→17:30)
[2018-06-27] MEDS ORDERED: PANTOPRAZOLE 40 MG (PROTONIX) TAB PO SCH (09:00)
[2018-06-27 09:15] VITALS: BP 105/63
[2018-06-27] MEDS: LORATADINE (CLARITIN) 10 MG TAB PO SCH (09:17)
[2018-06-27] MEDS: FOLIC ACID 1 MG TAB PO SCH (09:17)
[2018-06-27] MEDS: DIGOXIN 0.125 MG (LANOXIN) TAB PO SCH (09:18)
[2018-06-27] MEDS: FUROSEMIDE 40 MG (LASIX) TAB PO SCH (09:18)
[2018-06-27] MEDS: meTOprolol TARTRATE 25 MG (LOPRESSOR) TABLET PO SCH ×2 (09:18→21:35)
[2018-06-27] MEDS: inSUlin NPH (NovoLIN N) 1 UNIT/0.01 ML (CHARGE PER UNIT) SQ SCH (09:22)
[2018-06-27] MEDS: TRIAMCINOLONE 0.1% CR (KENALOG) 15 GM TUBE TOP SCH ×2 (09:30→21:36)
[2018-06-27] MEDS ORDERED: PATIENT MAY USE OWN MED,SINGLE MED PO SCH (09:30)
--- NOTE | 2018-06-27 14:00 | NUR ---
DR. MCKEON HERE TO SEE PATIENT. SHE STATES NAUSEA IS IMPROVED SINCE MEDICATED WITH ZOFRAN.
--- NOTE | 2018-06-27 14:29 | Progress Note-Cardiology ---
Cardiology SOAP Progress Note Subjective: No recurrence of cp No palp or syncope Continuing malaise and poor stamina Objective: I&O/Vital Signs 06/27/18 06/27/18 05:08 11:05 Temp 98.2 Pulse 85 Resp 18 B/P (MAP) 107/58 (74) Pulse Ox 97 O2 Delivery Nasal Cannula Nasal Cannula O2 Flow Rate 2.00 2.00 06/27/18 00:00 Intake Total 690 ml Output Total 1100 ml Balance -410 ml Weight (Pounds): 266 Weight (Ounces): 0.3 Weight (Calculated Kilograms): 120.297365 Constitutional: AAO x 3, well-developed, well-nourished, other (obese) Respiratory: chest is bilaterally symmetric, lungs clear to auscultation, other (tenderness over lower sternum) Cardiovascular: regular rate-rhythm, S1 and S2, systolic murmur (soft KAVITA at card base) Gastrointestional: No tender; soft; No guarding, No rebound; audible bowel sounds Extremities: No clubbing, No cyanosis, No significant edema Neurologic/Psychiatric: alert, normal mood/affect, oriented x 3, grossly intact , power is 5/5 both on sides Skin: warm/dry; No cyanosis, No cool, No diaphoresis, No rash on exposed areas , No ulcerations on exposed areas Results/Procedures: Labs Laboratory Tests 06/26/18 17:21: Glucometer 158H 06/26/18 20:22: Glucometer 155H 06/27/18 04:27: Glucometer 128H 06/27/18 11:23: Glucometer 176H Microbiology 06/22/18 MRSA Screen - Final, Complete MRSA not isolated Laboratory Tests 06/26/18 06:25 A/P: Assessment: Episode of chest discomfort on 06/25/18, self-resolving, etiology undetermined, no evidence of ACS Shortness of breath, likely multifactorial (see below) Congestive heart failure, chronic left ventricular diastolic dysfunction Obesity, BMI approx, with obesity-hypoventilation Sinus tachycardia, likely due to anemia Status post respiratory failure with pneumonia and UTI and sepsis, improved Debility and generalized weakness due to prolonged illness Anemia - probably related to GI bleed. Dr Field and Dr Morrell have not permitted the use of antiplatelet agents or anticoagulants Coronary artery disease, history of CABG 4 done in February 2018. History of paroxysmal atrial fibrillation, unable to tolerate oral anticoagulation due to recurrent GI bleed. Moderate size left pericardial effusion, persistent since the bypass surgery History of hepatic cirrhosis and ascites, unknown etiology History of esophageal paresis and gastritis and GAVE Plan: * Complex management due to multiple comorbidities * We recommend initiation of low-dose ASA when feasible from the standpoint of Hematology and Medical Services * Continue current regimen * Monitor labs ARNIE MCKEON MD FACP FAC CCDS Jun 27, 2018 14:29
[2018-06-27 17:40] VITALS: BP 118/70
--- NOTE | 2018-06-27 19:00 | NUR ---
EXPELLED 3 STOOLS TODAY WHICH WERE SOFT-FORMED. 4TH STOOL VERY LOOSE WITH A FAIR AMOUNT OF BLOOD IN IT. DOES HAVE A HEMORRHOID, BUT PATIENT STATES "IT DOES NOT BLEED LIKE THIS". ALSO COMPLAIN SOB. OS SAT 92% ON 2L. CONTINUED NAUSEA AND ABDOMINAL CRAMPING. PATIENT WORRIED HER HGB NEEDS CHECKED. DR. GARCIA NOTIFIED OF ABOVE. DR. BORRERO NOTIFIED OF ABOVE PER DR. GARCIA'S REQUEST. HE STATED NOTHING NEEDS DONE TONIGHT AND HE WOULD HAVE DR. ROSSI SEE HER IN THE MORNING. LABS TO BE DONE IN AM.
--- NOTE | 2018-06-27 19:24 | NUR ---
bedside report received from BAILEE MACKAY, assume care of pt
[2018-06-27] MEDS: SENNA W/DOCUSATE (SENOKOT S) TABLET PO SCH (21:00)
--- NOTE | 2018-06-27 21:00 | NUR ---
assessments & interventions completed, see assessments & interventions, fsbs 186, up to bathroom had moderate formed brown stool but toilet water pink tinged
--- NOTE | 2018-06-27 21:05 | NUR ---
refused Renee vela
[2018-06-27 21:30] VITALS: BP 139/74
[2018-06-27] MEDS: MELATONIN 3 MG TABLET PO PRN (21:35)
--- NOTE | 2018-06-27 21:35 | NUR ---
c/o pain to shoulder level 6/10 on numeric scale, Ultram 50mg & Zanaflex 2mg po given
--- NOTE | 2018-06-27 22:20 | NUR ---
resting quietly in bed, pain level 0/10 on flacc scale
[2018-06-28 05:31] VITALS: BP 119/69
[2018-06-28] MEDS: inSUlin ASPART (NovoLOG) 1 UNIT/0.01 ML (CHARGE PER UNIT) SC SCH ×4 (06:00→21:22)
--- NOTE | 2018-06-28 06:00 | NUR ---
Zofran 8mg po given for nausea
[2018-06-28] MEDS: ONDANSETRON 8 MG (ZOFRAN) ORAL DISSOLVE TAB PO PRN ×2 (06:03→14:25)
[2018-06-28 06:09] LABS: BASOPHILS % (AUTO) 1 % (0-10); EOSINOPHILS # (AUTO) 0.3 10^3/uL (0.0-0.3); EOSINOPHILS % (AUTO) 7 % (0-10); HEMATOCRIT 29 % (35-52); HEMOGLOBIN 8.9 G/DL (11.5-16.0); LYMPHOCYTES # (AUTO) 0.8 X 10^3 (1.0-4.0); LYMPHOCYTES % (AUTO) 20 % (12-44); MEAN CORPUSCULAR HEMOGLOBIN 30 PG (25-34); MEAN CORPUSCULAR HGB CONC 31 G/DL (32-36); MEAN CORPUSCULAR VOLUME 96 FL (80-99); MEAN PLATELET VOLUME 9.8 FL (7.4-10.4); MONOCYTES # (AUTO) 0.5 X 10^3 (0.0-1.0); MONOCYTES % (AUTO) 13 % (0-12); NEUTROPHILS # (AUTO) 2.3 X 10^3 (1.8-7.8); NEUTROPHILS % (AUTO) 59 % (42-75); PLATELET COUNT 134 10^3/uL (130-400); RED BLOOD COUNT 3.01 10^6/uL (4.35-5.85); RED CELL DISTRIBUTION WIDTH 17.6 % (10.0-14.5); WHITE BLOOD COUNT 3.9 10^3/uL (4.3-11.0)
--- NOTE | 2018-06-28 06:09 | NUR ---
c/o shoulder pain level 5/10 asked for tylenol 325mg po
[2018-06-28] MEDS: ACETAMINOPHEN 325 MG TABLET PO PRN (06:10)
[2018-06-28] MEDS: KCL 20 MEQ TAB (K-DUR) PO SCH (06:38)
[2018-06-28] MEDS: LEVOTHYROXINE 100 MCG (LEVOTHROID) TAB PO SCH (06:38)
[2018-06-28 06:45] LABS: ALBUMIN 2.8 GM/DL (3.2-4.5); BILIRUBIN,TOTAL 0.9 MG/DL (0.1-1.0); CREATININE SERUM 1.96 MG/DL (0.60-1.30); MAGNESIUM 1.5 MG/DL (1.8-2.4); POTASSIUM 4.4 MMOL/L (3.6-5.0); TOTAL PROTEIN 6.2 GM/DL (6.4-8.2)
--- NOTE | 2018-06-28 06:45 | NUR ---
rates pain at 5/10 on numeric scale
--- NOTE | 2018-06-28 07:30 | NUR ---
bedside report given to BAILEE MACKAY
--- NOTE | 2018-06-28 08:31 | PM&R Progress Note ---
Subjective This was a face to face visit with the patient. Date Seen by Provider: Jun 28, 2018 Time Seen by Provider: 08:00 Subjective/Events-last exam Patient was seen in her room when she was up in chair and awake and alert Left shoulder pain is worse Unsure if ortho has any other options for the patient GI bleeding will require [facility] hepatology evaluation before ablation of the bleeder in case it is from the portal HTN due to cirrhosis per Dr Field Htb 8.9 today and doing well Started on Mag Oxide PO due to Mag level at 1.5 Checked meds and labs Multiple and complex medical issues require extensive management in order to remain stable for therapies Date Identified: Jun 28, 2018 Time Identified: 08:00 Medication Intervention: Low mag level starting on PO supplement Review of Systems General: Fatigue Pulmonary: Dyspnea Objective Physician Exam Last Set of Vital Signs Vital Signs Date Time Temp Pulse Resp B/P (MAP) Pulse Ox O2 Delivery O2 Flow Rate FiO2 06/28/18 05:31 97.7 67 18 119/69 (86) 92 Nasal Cannula 2.00 Capillary Refill : I&O Intake and Output 06/28/18 00:00 Intake Total 1180 ml Output Total 1150 ml Balance 30 ml Intake Oral 1180 ml Output Urine Total 1150 ml # Voids 3 # Bowel Movements 5 General: Alert, Oriented X3, Cooperative, No Acute Distress HEENT: Atraumatic, PERRLA, EOMI, Mucous Memb Moist/[place] Neck: Supple, No JVD, No Thyromegaly, +2 Carotid Pulse No Bruit, No LAD Lungs: Clear to Auscultation, Normal Air Movement, Other (diminished BS bases especially left) Heart: Regular Rate, Normal S1, Normal S2 Abdomen: Normal Bowel Sounds, Soft, No Tenderness, No Hepatosplenomegaly, No Masses Extremities: No Clubbing, No Cyanosis, Other (edema noted lower legs) Skin: No Rashes, No Breakdown, No Significant Lesion, Other (Subtle venous stasis dermatitis left lower leg) Neuro: Normal Speech, Normal Tone, Sensation Intact, Cranial Nerves 3-12 NL, Reflexes 2+, Other (global weakness of all extremities 4/5) Psych/Mental Status: Mental Status NL, Mood NL Results Lab Data Laboratory Tests 06/25/18 10:27: Sodium Level 139, Potassium Level 4.2, Chloride Level 94L, Carbon Dioxide Level 36H, Anion Gap 9, Blood Urea Nitrogen 19H, Creatinine 1.44H, Estimat Glomerular Filtration Rate 37, BUN/Creatinine Ratio 13, Glucose Level 143H, Calcium Level 8.9 06/25/18 14:01: Glucometer 137H 06/25/18 18:17: Glucometer 181H 06/25/18 21:47: Glucometer 219H 06/26/18 04:32: Glucometer 140H 06/26/18 06:25: White Blood Count 2.7L, Red Blood Count 2.93L, Hemoglobin 8.8L, Hematocrit 28L, Mean Corpuscular Volume 95, Mean Corpuscular Hemoglobin 30, Mean Corpuscular Hemoglobin Concent 32, Red Cell Distribution Width 18.6H, Platelet Count 117L, Mean Platelet Volume 9.7, Neutrophils (%) (Auto) 56, Lymphocytes (%) (Auto) 22, Monocytes (%) (Auto) 12, Eosinophils (%) (Auto) 9, Basophils (%) (Auto) 1, Neutrophils # (Auto) 1.5L, Lymphocytes # (Auto) 0.6L, Monocytes # (Auto) 0.3, Eosinophils # (Auto) 0.2, Basophils # (Auto) 0.0, Sodium Level 139, Potassium Level 4.1, Chloride Level 93L, Carbon Dioxide Level 35H, Anion Gap 11, Blood Urea Nitrogen 19H, Creatinine 1.42H, Estimat Glomerular Filtration Rate 38, BUN/ Creatinine Ratio 13, Glucose Level 160H, Calcium Level 8.6, Corrected Calcium 9.8, Magnesium Level 1.3L, Total Bilirubin 0.7, Aspartate Amino Transf (AST/SGOT ) 25, Alanine Aminotransferase (ALT/SGPT) 8, Alkaline Phosphatase 58, Total Protein 5.7L, Albumin 2.5L 06/26/18 10:57: Glucometer 162H 06/26/18 17:21: Glucometer 158H 06/26/18 20:22: Glucometer 155H 06/27/18 04:27: Glucometer 128H 06/27/18 11:23: Glucometer 176H 06/27/18 15:45: Glucometer 142H 06/27/18 21:31: Glucometer 186H 06/28/18 05:57: Glucometer 146H 06/28/18 06:00: White Blood Count 3.9L, Red Blood Count 3.01L, Hemoglobin 8.9L, Hematocrit 29L, Mean Corpuscular Volume 96, Mean Corpuscular Hemoglobin 30, Mean Corpuscular Hemoglobin Concent 31L, Red Cell Distribution Width 17.6H, Platelet Count 134, Mean Platelet Volume 9.8, Neutrophils (%) (Auto) 59, Lymphocytes (%) (Auto) 20, Monocytes (%) (Auto) 13H, Eosinophils (%) (Auto) 7, Basophils (%) (Auto) 1, Neutrophils # (Auto) 2.3, Lymphocytes # (Auto) 0.8L, Monocytes # (Auto) 0.5, Eosinophils # (Auto) 0.3, Basophils # (Auto) 0.0, Sodium Level 138, Potassium Level 4.4, Chloride Level 92L, Carbon Dioxide Level 36H, Anion Gap 10, Blood Urea Nitrogen 19H, Creatinine 1.96H, Estimat Glomerular Filtration Rate 26, BUN/ Creatinine Ratio 10, Glucose Level 137H, Calcium Level 9.0, Corrected Calcium 10.0, Magnesium Level 1.5L, Total Bilirubin 0.9, Aspartate Amino Transf (AST/ SGOT) 28, Alanine Aminotransferase (ALT/SGPT) 9, Alkaline Phosphatase 60, Total Protein 6.2L, Albumin 2.8L Microbiology 06/22/18 MRSA Screen - Final, Complete MRSA not isolated Current Funtional Status Mag Oxide PO Monitor labs every other day Left shoulder pain conservative management GI Bleed will be managed at [facility] after hepatology evaluation due to cirrhosis and connection with portal hypertension Assessment/Plan Assessment and Plan (1) Myopathy Status: Acute (2) 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 (3) Atrial fibrillation Qualifiers: Qualified Codes: I48.0 - Paroxysmal atrial fibrillation Status: Chronic (4) Hypothyroidism Qualifiers: Qualified Codes: E03.9 - Hypothyroidism, unspecified Status: Chronic (5) Coronary artery disease Qualifiers: Qualified Codes: I25.10 - Atherosclerotic heart disease of [place] coronary artery without angina pectoris Status: Chronic (6) Hypertension Qualifiers: Qualified Codes: I10 - Essential (primary) hypertension Status: Chronic (7) GI bleeding Qualifiers: Qualified Codes: K31.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 Status: Chronic (8) Transfusion-dependent anemia Status: Chronic (9) Type 2 diabetes mellitus with hyperglycemia Qualifiers: Qualified Codes: E11.65 - Type 2 diabetes mellitus with hyperglycemia; 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 Status: Chronic (10) Oxygen dependent Status: Chronic (11) Loss of weight Status: Acute (12) Hypoxia Status: Chronic (13) CKD (chronic kidney disease) Qualifiers: Qualified Codes: N18.3 - Chronic kidney disease, stage 3 (moderate) Status: Chronic (14) Portal hypertension Status: Chronic (15) Edema Qualifiers: Qualified Codes: R60.1 - Generalized edema Status: Acute (16) Port-A-Cath in place Status: Acute (17) Poor venous access Status: Acute (18) Left shoulder pain Qualifiers: Qualified Codes: M25.512 - Pain in left shoulder (19) Hx of CABG Status: Chronic (20) B12 deficiency Status: Chronic (21) Contraindication to anticoagulation therapy Status: Chronic (22) Contraindication to antiplatelet therapy Status: Chronic (23) Venous stasis dermatitis Qualifiers: Qualified Codes: I87.2 - Venous insufficiency (chronic) (peripheral) Status: Acute (24) Neutropenia Qualifiers: Qualified Codes: D70.9 - Neutropenia, unspecified Status: Chronic (25) Cirrhosis Qualifiers: Qualified Codes: K74.60 - Unspecified cirrhosis of liver; R18.8 - Other ascites (26) Portal hypertension Status: Chronic Co-Morbidities that are continuing to impact the rehab process: (include details ) MICHELLE GARCIA DO Jun 28, 2018 08:31
[2018-06-28] MEDS: meTOprolol TARTRATE 25 MG (LOPRESSOR) TABLET PO SCH ×2 (09:09→21:22)
[2018-06-28] MEDS: FUROSEMIDE 40 MG (LASIX) TAB PO SCH (09:09)
[2018-06-28] MEDS: FOLIC ACID 1 MG TAB PO SCH (09:09)
[2018-06-28] MEDS: DIGOXIN 0.125 MG (LANOXIN) TAB PO SCH (09:09)
[2018-06-28] MEDS: LORATADINE (CLARITIN) 10 MG TAB PO SCH (09:10)
[2018-06-28] MEDS: inSUlin NPH (NovoLIN N) 1 UNIT/0.01 ML (CHARGE PER UNIT) SQ SCH (09:13)
[2018-06-28] MEDS: TRIAMCINOLONE 0.1% CR (KENALOG) 15 GM TUBE TOP SCH ×2 (09:14→21:25)
[2018-06-28] MEDS: MAGNESIUM OXIDE (MAG-OX)400 MG TAB PO SCH ×2 (09:17→18:07)
--- NOTE | 2018-06-28 11:23 | NUR ---
PT NOT EATING WELL, BUT WEIGHT IS STABLE IN PART DUE TO PT HAVING EDEMA. CHANGED DIET TO D/C HEART HEALTHY PORTION DUE TO PT NEEDING TO EAT TO GAIN STRENGTH. STARTED GLUCERNA TID TO INCREASE PO INTAKE WELL. CONT TO FOLLOW.
--- NOTE | 2018-06-28 12:01 | Physical Therapy Daily Note ---
PT Daily Note-Current Subjective Pt. states she is so nauseous today, didnt sleep well last night b/c of this. Pt agrees to Rx but needs to take it slow. C/o SOA dionte laying down. "It was low earlier while off O2". Pt. asked if there is a possibility she might be able to go home later this week. This was discussed as pt. has assist of as well as a lot of equipment. Pain Numeric Pain Scale: 0-No Pain Mental Status Patient Orientation: Normal For Age Attachments: Oxygen (2L portable) Transfers Therapy Code Descriptions/Definitions Functional [place] Measure: 0=Not Assessed/NA 4=Minimal Assistance 1=Total Assistance 5=Supervision or Setup 2=Maximal Assistance 6=Modified [place] 3=Moderate Assistance 7=Complete [place] Therapy Quality Codes: 6 Independent with activity with or without an assistive device 5 Patient requires set up or clean up by helper. Patient completes activity by themselves 4 Supervision or touching assist (CGA). Odell provide cues , steadying assist 3 The helper provides less than half the effort to complete the activity 2 The helper provides more than half the effort to complete the activity 1 Dependent. The helper does all the effort to complete an activity 7 Patient refused to complete or attempt activity 9 The patient did not perform the activity before the current illness or injury 88 Not attempted due to Medical conditions or safety concerns Transfers (B, C, W/C) (FIM): 6 Scootin Rollin Supine to/from Sit: 6 Sit to/from Stand: 6 Bed to/from Chair: 6 in supine in gym on mat pts facial color somewhat blue/purple. O2 sats checked on 2 L with sats at 86%, pt. sat back up , cheeks and face then pink again and sats at 95%. Weight Bearing Right Lower Extremity: Right Weight Bearing/Tolerated Left Lower Extremity: Left Weight Bearing/Tolerated Gait Training Does the Patient Walk?: Yes Gait (FIM): 2 Distance (FIM): 6=491-88 ft (125x4) Gait Level of Assist: 5 Gait Persons Needed: 1 Gait Assistive Device: FWW low, needs standing rest breaks, and assist for O2 Exercises Seated Therapy Exercises: Ankle pumps, Sit to stand, Long arc quads, Hip flexion, Hip abd/add Seated Reps: 15 (x2) Standing: Marching, Weight shifts Standing Reps: 10 Assessment Current Status: Fair Progress pt. nauseous and needed breaks to rest. Pts abdomen large and likely that abdomen presses on diaphragm in supine and this caused decreased O2 sats...upon sitting sats back up. pt. cannot tolerate supine LE exercises b/c of this. Pt. may be able to manage at home with home care and husbands assist. Team members will confer PT Short Term Goals Short Term Goals Time Frame: Jun 25, 2018 Transfers (B,C,W/C) (FIM): 4 Gait (FIM): 1 Gait Distance Comment: 25' Gait Level of Assist: 4 Gait Assistive Device: FWW Wheelchair Distance: 150' PT Adobe Block Maker Goals Adobe Block Maker Goals PT Adobe Block Maker Goals Time Frame: Jul 09, 2018 Transfers (B,C,W/C) (FIM): 5 Sit to Lying (QC): 4 Lying-Sitting on Side/Bed(QC): 4 Sit to Stand (QC): 4 Rollin Roll Left to Right (QC): 4 Chair/[id number] Xfer(QC): 4 Car Transfer (QC): 4 Gait (FIM): 2 Distance: 50' Walk 10 feet (QC): 4 Walk 10ft-Uneven Surface(QC): 4 Walk 50ft with 2 Turns (QC): 4 Gait Level of Assist: 5 Gait Assistive Device: FWW Stairs (FIM): 1 # of Steps: 1 1 Step (curb) (QC): 4 Stairs Level Of Assist: 4 PT Plan Treatment/Plan Treatment Plan: Continue Plan of Care Treatment Plan: Bed Mobility, Concurrent Therapy, Education, Functional Activity Tamy, Functional Strength, Group Therapy, Gait, Safety, Therapeutic Exercise, Transfers Treatment Duration: Jul 09, 2018 Frequency: At least 5 of 7 days/Wk (IRF) Estimated Hrs Per Day: 1.5 hours per day Patient and/or Family Agrees t: Yes Safety Risks/Education Patient Education: Gait Training, Transfer Techniques, Correct Positioning, Disease Process, Safety Issues Teaching Recipient: Patient Teaching Methods: Demonstration, Discussion Response to Teaching: Verbalize Understanding, Return Demonstration, Reinforcement Needed Time/GCodes Time In: 1100 Time Out: 1200 Total Billed Treatment Time: 60 Total Billed Treatment 1,GT25m,FA20m,EX15m G Codes Necessary: MARIO Barrera HOUSEKEEPER AND LAUNDRY ASSISTANT Jun 28, 2018 12:01
--- NOTE | 2018-06-28 12:13 | Occupational Ther Daily Note ---
OT Current Status-Daily Note Subjective Pt. reports that her left shoulder is still very bothersome to her. Does not report a pain level. Demonstrates limited movement of it. Declines pain medicine because it "makes me dizzy." States that she already took one tylenol. Appearance Pt. up in chair. Declines showering but agrees to work with OT. Mental Status/Objective Patient Orientation: Person, Place, Time, Situation Therapy Code Descriptions/Definitions Functional [place] Measure: 0=Not Assessed/NA 4=Minimal Assistance 1=Total Assistance 5=Supervision or Setup 2=Maximal Assistance 6=Modified [place] 3=Moderate Assistance 7=Complete [place] Attachments: IV, Oxygen ADL-Treatment Therapy Code Descriptions/Definitions Functional [place] Measure: 0=Not Assessed/NA 4=Minimal Assistance 1=Total Assistance 5=Supervision or Setup 2=Maximal Assistance 6=Modified [place] 3=Moderate Assistance 7=Complete [place] Therapy Quality Codes: 6 Independent with activity with or without an assistive device 5 Patient requires set up or clean up by helper. Patient completes activity by themselves 4 Supervision or touching assist (CGA). [place] provide cues , steadying assist 3 The helper provides less than half the effort to complete the activity 2 The helper provides more than half the effort to complete the activity 1 Dependent. The helper does all the effort to complete an activity 7 Patient refused to complete or attempt activity 9 The patient did not perform the activity before the current illness or injury 88 Not attempted due to Medical conditions or safety concerns Transfers (B, C, W/C) (FIM): 5 (SBA to stand out of chair and ambulate with walker.) Pt. reports that her left shoulder is still sore with movement. Requests however for OT to perform gentle PROM with it, as this has been okayed by her physician. Pt. on but states that she would like to try and ambulate without it. Pt. ambulated to therapy gym and sats taken immediately. Sats at 79%. Oxygen applied immediately. Sats raised to 91%. Performed gentle PROM to left shoulder to pt's tolerance level, which was low. Completed ROM in shoulder flexion/extension, forearm supination, bicep flexion. After this, pt. ambulated back to room with increased time needed. Multiple rest breaks taken as pt. needed to stand and breathe. Pt. encouraged to breathe in through nose and out through mouth. All needs met back in room and ice applied to right neck and left shoulder. Education OT Patient Education: Correct positioning, Exercise program, Modified ADL techniques, Progress toward Goal/Update tx plan, Purpose of tx/functional activities, Reviewed precautions, Rehab process, Transfer techniques Teaching Recipient: Patient Teaching Methods: Demonstration, Discussion Response to Teaching: Verbalize Understanding, Return Demonstration OT Short Term Goals Short Term Goals Time Frame: Jun 25, 2018 Lower Body Dressing(FIM): 5 Toileting(FIM): 5 Transfers (B,C,W/C) (FIM): 4 Toilet/Commode Transfer(FIM): 5 1=Demonstrate adherence to instructed precautions during ADL tasks. 2=Patient will verbalize/demonstrate understanding of assistive devices/ modifications for ADL. 3=Patient will improve strength/tolerance for activity to enable patient to perform ADL's. OT Correction Goals Veneer Jointer Returner Goals Time Frame: Jul 09, 2018 Eating (FIM): 6 Eating (QC): 6 Groomin Oral Hygiene (QC): 6 Bathing(FIM): 6 Shower/Bathe Self (QC): 6 Upper Body Dressing(FIM): 6 Upper Body Dressing (QC): 6 Lower Body Dressing(FIM): 6 Lower Body Dressing (QC): 6 On/Off Footwear (QC): 6 Toileting(FIM): 6 Toileting Hygiene (QC): 6 Toilet/Commode Transfer(FIM): 6 Toilet/Commode Transfer (QC): 6 Shower Transfer(FIM): 5 Additional Goals: 1-Demonstrate ADL Tasks, 2-Verbalize Understanding, 3- ImproveStrength/Tamy 1=Demonstrate adherence to instructed precautions during ADL tasks. 2=Patient will verbalize/demonstrate understanding of assistive devices/ modifications for ADL. 3=Patient will improve strength/tolerance for activity to enable patient to perform ADL's. OT Education/Plan Problem List/Assessment Assessment: Decreased Activ Tolerance, Decreased UE Strength, Impaired I ADL's , Impaired Self-Care Skills, Restricted Funct UE ROM Pt demonstrates decreased activity tolerance, strength, mobility, and ADL functioning. Pt to benefit from skilled OT intervention for ADL training, transfers, strengthening, and home safety education to increase functional independence and allow safe discharge home. Discharge Recommendations Plan/Recommendations: Continue POC Therapy D/C Recommendations: Home w/ Family Support, Scheduled Assistance Equpiment Recommendations-D/C: Hip Kit Treatment Plan/Plan of Care Treatment,Training & Education: Yes Patient would benefit from OT for education, treatment and training to promote independence in ADL's, mobility, safety and/or upper extremity function for ADL' s. Plan of Care: ADL Retraining, Functional Mobility, Group Exercise/Act as Ind, UE Funct Exercise/Act Treatment Duration: Jul 09, 2018 Frequency: At least 5 of 7 days/Wk (IRF) Estimated Hrs Per Day: 1.5 hours per day Agreement: Yes Rehab Potential: Fair Time/GCodes Start Time: 09:30 Stop Time: 10:30 Total Time Billed (hr/min): 60 Billed Treatment Time 1, FA x 4 SANDRA COMER OT Jun 28, 2018 12:13
--- NOTE | 2018-06-28 13:00 | NUR ---
DR. PICHARDO HERE AND ID A LEFT SHOULDER SUBACROMIAL INJECTION. BANDAID D/I. DR STATES SHOULDER WILL FEEL NUMB UNTIL THIS EVENING AND PAIN MAY EVEN BE WORSE TOMORROW BEFORE IT IMPROVES.
--- NOTE | 2018-06-28 13:22 | Procedure/Intervention Note ---
Procedure Note Preoperative Date of Service: Jun 28, 2018 Time of Procedure: 13:20 Vital Signs Date Time Temp Pulse Resp B/P (MAP) Pulse Ox O2 Delivery O2 Flow Rate FiO2 06/28/18 05:31 97.7 67 18 119/69 (86) 92 Nasal Cannula 2.00 Indication Left Shoulder Pain Risk/Time Out Risk and benefits explained to patient or legal guardian, verbal and written consent given. Time out performed, verified correct patient, correct procedure, correct site, and consent documented. Technique Left shoulder subacromial injection Prep/Sedation Prepartation: Povidone-iodine Procedure-General Left subacromial injection performed with 8cc of .5%marcaine w/o epi and 12mg of celestone, tolerated well. Estimated Blood Loss Bleeding: Minimal Less than 1 mL: Yes CAMERON PICHARDO MD Jun 28, 2018 13:22
[2018-06-28] MEDS: CALCIUM CARBONATE 500 MG (TUMS) TAB.CHEW PO PRN (14:25)
--- NOTE | 2018-06-28 15:15 | Therapy Group Daily Note ---
Therapy Daily Group Note Patient Education Topic Exercises, Other List Below Exercises LE Seated Exercise, UE Exercise Other/Notes Pt participated in group therapy with 4:1 ratio. Goals of therapy are understanding ARU description/expectations and understanding the benefits of sleep. Pt amb to group with FWW and SBA. Group consisted of introductions (name , place living, why are you here), socialization, UE/LE seated exercises, education for ARU description/expectations and understanding the benefits of sleep. Pt was able to introduce self appropriately and accurately state reason for being at ARU. Pt actively listened to peers throughout session. Pt was able to acknowledge understanding of goals by giving verbal example and raise hand for acknowledgement. Pt tolerated UE/LE seated exercises and completed but with some difficulty due to pain in shoulder. Pt will benefit from topics discussed by increasing time slept and being able to fully engage in therapies. Pt amb back to room with FWW and SBA. Pt sitting up in recliner with LE's elevated and with visitors. Call light/phone in reach. Safety measures in place. Start Time: 13:00 Stop Time: 14:30 Total Billed Treatment Time: 90 Total Billed Treatment 1-GRP MARTIN DAVID PTA Jun 28, 2018 15:15
[2018-06-28 15:55] VITALS: BP 144/74
--- NOTE | 2018-06-28 16:42 | Cardiology Progress Note ---
Cardiology SOAP Progress Note Subjective: c/o nausea Objective: I&O/Vital Signs 06/28/18 06/28/18 06/28/18 05:31 09:00 15:55 Temp 97.7 97.4 Pulse 67 64 Resp 18 16 B/P (MAP) 119/69 (86) 144/74 (97) Pulse Ox 92 91 O2 Delivery Nasal Cannula Nasal Cannula Nasal Cannula O2 Flow Rate 2.00 2.00 2.00 06/28/18 00:00 Intake Total 680 ml Output Total 200 ml Balance 480 ml Weight (Pounds): 266 Weight (Ounces): 8.0 Weight (Calculated Kilograms): 120.725569 Constitutional: AAO x 3, well-developed, well-nourished, other (obese) Respiratory: chest is bilaterally symmetric, lungs clear to auscultation, other (tenderness over lower sternum) Cardiovascular: regular rate-rhythm, S1 and S2, systolic murmur (soft KAVITA at card base) Gastrointestional: No tender; soft; No guarding, No rebound; audible bowel sounds Extremities: No clubbing, No cyanosis, No significant edema Neurologic/Psychiatric: alert, normal mood/affect, oriented x 3, grossly intact , power is 5/5 both on sides Skin: warm/dry; No cyanosis, No cool, No diaphoresis, No rash on exposed areas , No ulcerations on exposed areas Results/Procedures: Labs Laboratory Tests 06/27/18 21:31: Glucometer 186H 06/28/18 05:57: Glucometer 146H 06/28/18 06:00: White Blood Count 3.9L, Red Blood Count 3.01L, Hemoglobin 8.9L, Hematocrit 29L, Mean Corpuscular Volume 96, Mean Corpuscular Hemoglobin 30, Mean Corpuscular Hemoglobin Concent 31L, Red Cell Distribution Width 17.6H, Platelet Count 134, Mean Platelet Volume 9.8, Neutrophils (%) (Auto) 59, Lymphocytes (%) (Auto) 20, Monocytes (%) (Auto) 13H, Eosinophils (%) (Auto) 7, Basophils (%) (Auto) 1, Neutrophils # (Auto) 2.3, Lymphocytes # (Auto) 0.8L, Monocytes # (Auto) 0.5, Eosinophils # (Auto) 0.3, Basophils # (Auto) 0.0, Sodium Level 138, Potassium Level 4.4, Chloride Level 92L, Carbon Dioxide Level 36H, Anion Gap 10, Blood Urea Nitrogen 19H, Creatinine 1.96H, Estimat Glomerular Filtration Rate 26, BUN/ Creatinine Ratio 10, Glucose Level 137H, Calcium Level 9.0, Corrected Calcium 10.0, Magnesium Level 1.5L, Total Bilirubin 0.9, Aspartate Amino Transf (AST/ SGOT) 28, Alanine Aminotransferase (ALT/SGPT) 9, Alkaline Phosphatase 60, Total Protein 6.2L, Albumin 2.8L 06/28/18 10:59: Glucometer 128H 06/28/18 15:54: Glucometer 139H Microbiology 06/22/18 MRSA Screen - Final, Complete MRSA not isolated A/P: Assessment/Dx: Admission Diagnosis sinus tachycardia, PAF, Hypertension Coronary artery disease Chronic renal insufficiency Anemia, Shortness of breath Plan: Shortness of breath, better. on lasix Sinus tachycardia, multifactorial, history of paroxysmal atrial fibrillation. currently in sinus rhythm. Borderline BP : low dose bb. Status post respiratory failure with pneumonia and UTI and sepsis. Improved, receiving physical therapy Debility and generalized weakness. Receiving physical therapy Anemia- worsening. Has been following with Dr. Field. Port placed. Coronary artery disease, history of CABG 4 done in February 2018. Clinically stable. Continue to monitor History of paroxysmal atrial fibrillation, unable to tolerate oral anticoagulation due to recurrent GI bleed. Moderate size left pericardial effusion, persistent since the bypass surgery. Maintained on Lasix, continue to monitor. Congestive heart failure, chronic left ventricular diastolic dysfunction, secondary to hypertension. Hypertension, controlled on current medication, continue to monitor History of hepatic cirrhosis, unknown etiology. Scheduled to see a line out man as an outpatient History of esophageal paresis and gastritis. Followed and managed by primary care physician next History of GAVE History of ascites secondary to hepatic cirrhosis Status post pneumonia and UTI resulted in septic shock and encephalopathy Status post respiratory failure. Obesity, BMI 45 Thank you for your consultation. Please call me if you have any questions. Estela Jorge MD, FACP, FACC, FSCAI, FHRS, CCDS Interventional Cardiology Cardiac Electrophysiology Vascular Medicine and Endovascular Interventions Wei JORGE MD Jun 28, 2018 4:42 pm
--- NOTE | 2018-06-28 16:50 | NUR ---
DR. AGARWAL HERE TO SEE PATIENT.
--- NOTE | 2018-06-28 16:50 | Pulmonary Progress Note ---
Sepsis Event Evaluation Height, Weight, BMI Height: 5'4.00" Weight: 266lbs. 8.0oz. 120.413910cf; 45.0 BMI Method:Stated Exam Exam Vital Signs Date Time Temp Pulse Resp B/P (MAP) Pulse Ox O2 Delivery O2 Flow Rate FiO2 06/28/18 15:55 97.4 64 16 144/74 (97) 91 Nasal Cannula 2.00 06/28/18 09:00 Nasal Cannula 2.00 06/28/18 05:31 97.7 67 18 119/69 (86) 92 Nasal Cannula 2.00 06/27/18 21:30 75 18 139/74 (95) 94 Nasal Cannula 2.00 06/27/18 21:00 Nasal Cannula 2.00 06/27/18 17:40 98.8 76 20 118/70 (86) 95 Nasal Cannula 2.00 I & O 06/28/18 07:00 Intake Total 1205 ml Output Total 575 ml Balance 630 ml Height & Weight Height: 5'4.00" Weight: 266lbs. 8.0oz. 120.723182xo; 45.0 BMI Method:Stated General Appearance: No Apparent Distress, WD/WN, Chronically ill, Obese HEENT: PERRL/EOMI, Normal ENT Inspection, Pharynx Normal Neck: Full Range of Motion, Normal Inspection, Non Tender, Supple, Carotid Bruit Respiratory: Chest Non Tender, Lungs Clear, Normal Breath Sounds, No Accessory Muscle Use, No Respiratory Distress, Decreased Breath Sounds (base) Cardiovascular: No Gallop, No JVD, No Murmur, Normal Peripheral Pulses, Irregularly Irregular Gastrointestinal: soft Extremity: Pedal Edema Neurologic/Psychiatric: Alert, Oriented x3, No Motor/Sensory Deficits, Normal Mood/Affect Skin: Normal Color, Warm/Dry Lymphatic: No Adenopathy Results Lab Laboratory Tests 06/28/18 06:00 Assessment/Plan Assessment/Plan Debility/myopathy secondary to extended hospital stay -Rehab Chronic respiratory failure including hypoxia -Oxygen - currently 2 liters -out patient PFT Left pleural effusion possibly secondary to ascites and diastolic CHF -Monitor Chronic liver disease with Portal HTN with hx of ascites - Lasix Anemia transfusion dependent -monitor -Occult stools Gastric antral vascular ectasia -Dx at hypothyroid Afib- chronic CAD -Cardiology following DM II BRISEIDA IBRAHIM DO Jun 28, 2018 16:49
--- NOTE | 2018-06-28 18:15 | Progress Note-Standard ---
Standard Progress Note Progress Notes/Assess & Plan Date Seen by a Provider: Jun 28, 2018 Time Seen by a Provider: 18:09 Progress/Assessment & Plan 62-year-old female with iron deficiency anemia due to chronic GI bleeding due to GAVE syndrome and was requiring numerous transfusions and parenteral iron therapies over the last 1-1/2 years. She developed coronary artery disease requiring 4 vessel CABG could not tolerate any anticoagulation including aspirin secondary to significant bleeding. Recent episode of the respiratory failure following infection/sepsis requiring ventilator management but extubated with significant deconditioning. Currently undergoing physical therapy for strengthening. Henry hematochezia over weekend which has continued. Complained of abdominal discomfort and nausea over past 2 days and not eating. Hemoglobin 8.8 today. Repeat CBC ordered for tomorrow due to continued GI bleeding. We will maintain hemoglobin more than 8 g/dL secondary to symptoms and coronary artery disease. Patient was on B-12 injections monthly as outpatient for mild B-12 deficiency. Medications reviewed and if GI symptoms worsening, may d/c oral potassium supplement. Will follow patient with you. SHIREEN AGARWAL Jun 28, 2018 18:15
--- NOTE | 2018-06-28 19:16 | NUR ---
bedside report received from BAILEE MACKAY, assume care of pt
--- NOTE | 2018-06-28 21:00 | NUR ---
assessments & interventions completed, see assessments & interventions, fsbs 266 NovoLog 5 units given
[2018-06-28 21:15] VITALS: BP 142/69
[2018-06-28] MEDS: MELATONIN 3 MG TABLET PO PRN (21:21)
[2018-06-28] MEDS: SENNA W/DOCUSATE (SENOKOT S) TABLET PO SCH (21:21)
--- NOTE | 2018-06-28 21:22 | NUR ---
c/o shpolder pain level 6/10 on numeric scale, Ultram 50mg & Zanaflex 2mg po given
--- NOTE | 2018-06-28 22:15 | NUR ---
resting quietly in bed, pain level 0/10 on flacc scale
[2018-06-29] MEDS: ONDANSETRON 8 MG (ZOFRAN) ORAL DISSOLVE TAB PO PRN ×2 (01:37→11:03)
--- NOTE | 2018-06-29 01:37 | NUR ---
c/o nausea zofran 8mg po given then asked for milk shake & lao food to be heated
[2018-06-29 05:32] LABS: BASOPHILS % (AUTO) 0 % (0-10); EOSINOPHILS % (AUTO) 0 % (0-10); HEMATOCRIT 30 % (35-52); HEMOGLOBIN 9.2 G/DL (11.5-16.0); LYMPHOCYTES # (AUTO) 0.4 X 10^3 (1.0-4.0); LYMPHOCYTES % (AUTO) 14 % (12-44); MEAN CORPUSCULAR HEMOGLOBIN 29 PG (25-34); MEAN CORPUSCULAR HGB CONC 31 G/DL (32-36); MEAN CORPUSCULAR VOLUME 94 FL (80-99); MONOCYTES # (AUTO) 0.2 X 10^3 (0.0-1.0); MONOCYTES % (AUTO) 7 % (0-12); NEUTROPHILS # (AUTO) 2.4 X 10^3 (1.8-7.8); NEUTROPHILS % (AUTO) 79 % (42-75); PLATELET COUNT 124 10^3/uL (130-400); RED BLOOD COUNT 3.16 10^6/uL (4.35-5.85); RED CELL DISTRIBUTION WIDTH 16.7 % (10.0-14.5); WHITE BLOOD COUNT 3.1 10^3/uL (4.3-11.0)
[2018-06-29 06:13] VITALS: BP 119/58
--- NOTE | 2018-06-29 06:15 | Pulmonary Progress Note ---
Standard Progress Note Progress Notes Time Seen by Provider: 15:17 NO complications noted. Pt has no complaints. Assessment & Plan Debility/myopathy secondary to extended hospital stay -Rehab Chronic respiratory failure including hypoxia -Oxygen - currently 2 liters -out patient PFT Left pleural effusion possibly secondary to ascites and diastolic CHF -Monitor -Lasix Chronic liver disease with Portal HTN with hx of ascites - Lasix Anemia transfusion dependent -monitor -Occult stools Gastric antral vascular ectasia -Dx at hypothyroid Afib- chronic CAD -Cardiology following DM II BRISEIDA IBRAHIM DO Jun 29, 2018 06:14
[2018-06-29] MEDS: LEVOTHYROXINE 150 MCG (LEVOTHROID) TAB PO SCH (06:36)
[2018-06-29] MEDS: LEVOTHYROXINE 25 MCG (LEVOTHROID) TAB PO SCH (06:36)
[2018-06-29] MEDS: inSUlin ASPART (NovoLOG) 1 UNIT/0.01 ML (CHARGE PER UNIT) SC SCH ×4 (06:37→21:50)
--- NOTE | 2018-06-29 07:20 | NUR ---
bedside report given to JUAN PABLO MACKAY
--- NOTE | 2018-06-29 08:56 | Physical Therapy Daily Note ---
PT Daily Note-Current Subjective Pt. agrees to rx, wants to discuss whether she can begin to plan DC perhaps even by Thurs . She would like to leave here with her and go to a app[place]lou in then go home from there. Pt. feels she could manage at home with her families assist. Pain Numeric Pain Scale: 4 Location: No Pain Reported, Left Location Body Site: Shoulder Pain Description: Ache Mental Status Patient Orientation: Person, Place, Time, Situation Attachments: Oxygen (2L) Transfers Therapy Code Descriptions/Definitions Functional [place] Measure: 0=Not Assessed/NA 4=Minimal Assistance 1=Total Assistance 5=Supervision or Setup 2=Maximal Assistance 6=Modified [place] 3=Moderate Assistance 7=Complete [place] Therapy Quality Codes: 6 Independent with activity with or without an assistive device 5 Patient requires set up or clean up by helper. Patient completes activity by themselves 4 Supervision or touching assist (CGA). [place] provide cues , steadying assist 3 The helper provides less than half the effort to complete the activity 2 The helper provides more than half the effort to complete the activity 1 Dependent. The helper does all the effort to complete an activity 7 Patient refused to complete or attempt activity 9 The patient did not perform the activity before the current illness or injury 88 Not attempted due to Medical conditions or safety concerns Transfers (B, C, W/C) (FIM): 6 Scootin Rollin Supine to/from Sit: 6 (with HOB up which pt states she can do at home) Sit to/from Stand: 6 Weight Bearing Right Lower Extremity: Right Weight Bearing/Tolerated Left Lower Extremity: Left Weight Bearing/Tolerated Gait Training Does the Patient Walk?: Yes Gait (FIM): 5 Distance (FIM): 8=356-75 ft (60ftx4) Gait Level of Assist: 5 Gait Persons Needed: 0 Gait Assistive Device: FWW household exception, no LOB managing extended O2 tubing around room in small areas with no incident , multiple trials, multiple turns etc Exercises Supine Ex: Ankle pumps, Quad Set, Glut sets, Heel Slides, Short Arc Quads, Scooting, Hip abd/add Supine Reps: 15 Seated Therapy Exercises: Ankle pumps, Sit to stand, Long arc quads Seated Reps: 12 Treatments toileted SBA to Mod I, donned housecoat SBA, needed max assist socks Assessment Current Status: Good Progress pt. desires to go home, hasnt been there in quite some time. Its uncertain when all of pts. issues will be resolved in light of fact she hopes to have ablation to end bleeding issues but not sure when she will be ready to endure surgery etc. This INSPECTOR PLATING and pt. hoping she can enjoy and manage some time at home for her overall emotional well being PT Short Term Goals Short Term Goals Time Frame: Jun 25, 2018 Transfers (B,C,W/C) (FIM): 4 Gait (FIM): 1 Gait Distance Comment: 25' Gait Level of Assist: 4 Gait Assistive Device: FWW Wheelchair Distance: 150' PT Well Blower Goals Snf Goals PT Well Blower Goals Time Frame: Jul 09, 2018 Transfers (B,C,W/C) (FIM): 5 Sit to Lying (QC): 4 Lying-Sitting on Side/Bed(QC): 4 Sit to Stand (QC): 4 Rollin Roll Left to Right (QC): 4 Chair/[id number]-[id number] Xfer(QC): 4 Car Transfer (QC): 4 Gait (FIM): 2 Distance: 50' Walk 10 feet (QC): 4 Walk 10ft-Uneven Surface(QC): 4 Walk 50ft with 2 Turns (QC): 4 Gait Level of Assist: 5 Gait Assistive Device: FWW Stairs (FIM): 1 # of Steps: 1 1 Step (curb) (QC): 4 Stairs Level Of Assist: 4 PT Plan Treatment/Plan Treatment Plan: Continue Plan of Care Treatment Plan: Bed Mobility, Concurrent Therapy, Education, Functional Activity Tamy, Functional Strength, Group Therapy, Gait, Safety, Therapeutic Exercise, Transfers Treatment Duration: Jul 09, 2018 Frequency: At least 5 of 7 days/Wk (IRF) Estimated Hrs Per Day: 1.5 hours per day Patient and/or Family Agrees t: Yes Safety Risks/Education Patient Education: Gait Training, Transfer Techniques, Correct Positioning, Disease Process, Safety Issues Teaching Recipient: Patient Teaching Methods: Demonstration, Discussion Response to Teaching: Verbalize Understanding, Return Demonstration, Reinforcement Needed Time/GCodes Time In: 800 Time Out: 900 Total Billed Treatment Time: 60 Total Billed Treatment 1,EX20m,GT25m,FA15m G Codes Necessary: No MARIO PATEL INSPECTOR PLATING Jun 29, 2018 08:56
[2018-06-29] MEDS: inSUlin NPH (NovoLIN N) 1 UNIT/0.01 ML (CHARGE PER UNIT) SQ SCH (09:00)
[2018-06-29 09:01] VITALS: BP 118/67
--- NOTE | 2018-06-29 09:01 | PM&R Progress Note ---
Subjective HPI/CC On Admission Date Seen by Provider: Jun 29, 2018 Time Seen by Provider: 08:00 Patient doing very well today Blood sugar was low last night so held insulin Willing to do a NovoLog sliding scale Denies any pain Lower extremity edema will require additional diuresis Appreciate cardiology, hematology, pulmonology consultation Maintained on 2 L of oxygen Bowels are moving Blood pressure stable Has no other issues Family just came to visit when I was completing my exam Subjective/Events-last exam Patient has nausea at times but that is a chronic issue Had a bowel movement and doing really well with that without blood in it Has an appointment at [facility] hepatology on and her will drive her there Chest x-ray will be checked tomorrow per Dr. Snow Hemoglobin at 9.2 is doing very well Creatinine is 1.96 yesterday and 2.34 today so we will monitor closely and hold diuresis for now Very complex medical problems require continuous management by physician and nursing staff Left shoulder is a little better status post steroid injection by Dr. Caal Review of Systems General: Fatigue Pulmonary: Dyspnea Gastrointestinal: Nausea Musculoskeletal: arm pain Objective Exam Vital Signs Vital Signs Date Time Temp Pulse Resp B/P (MAP) Pulse Ox O2 Delivery O2 Flow Rate FiO2 06/29/18 15:56 97.3 62 16 121/69 (86) 90 Nasal Cannula 2.00 Capillary Refill : General Appearance: No Apparent Distress, WD/WN, Chronically ill, Obese Respiratory: Chest Non Tender, Lungs Clear, Normal Breath Sounds, No Accessory Muscle Use, No Respiratory Distress Cardiovascular: Regular Rate, Rhythm, No Gallop, No JVD, No Murmur, Normal Peripheral Pulses Extremity: Pedal Edema Neurologic/Psychiatric: Alert, Oriented x3, No Motor/Sensory Deficits, Normal Mood/Affect Skin: Normal Color, Warm/Dry Results/Procedures Lab Laboratory Tests 06/29/18 05:25 06/29/18 10:55 Patient resulted labs reviewed. 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 Haywood has received 50 units of blood over the past 1 year and needs ablation on gastric bleeder Type II diabetes mellitus Chronic GI bleeding CAD Previous bypass Hyperlipidemia Hypothyroidism History of hepatitis B COPD Thrombocytopenia Chronic renal insufficiency Hypertension Long's esophagus Chronic diastolic heart failure Morbid obesity Edema requiring Lasix with K+ and wide EMMA wraps improving Left pleural effusion Poor venous access requiring [place] port placement 06/22/[address] Holt Chronic angina Low magnesium level requiring magnesium supplementation Cirrhosis with portal HTN Plan: Appreciate Gwendolyn Dumont, Sheila on this complex assistant case manager labs every other day per Dr Field Wide emma wraps to lower legs to facilitate edema resolution Therapies Port placement maintained Transfusion for hgb < 8.0 B12 supplement restarted DC ASA due to severe bleeding risk Hold Lasix due to increased creatinine [facility] appt for hepatology to ultimately stop GI bleeding 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 transplanted heart: [place] heart Associated angina: without angina Qualified Codes: I25.10 - Atherosclerotic heart disease of [place] coronary artery without angina pectoris (6) Hypertension Status: Chronic Qualifiers: Hypertension type: essential hypertension Qualified Codes: I10 - Essential (primary) hypertension (7) GI bleeding Status: Chronic Qualifiers: GI bleed type/associated pathology: angiodysplasia of stomach and duodenum Qualified Codes: K31.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 (8) Transfusion-dependent anemia Status: Chronic (9) Type 2 diabetes mellitus with hyperglycemia Status: Chronic Qualifiers: Diabetes mellitus intermediate card tender insulin use: with retirement use Qualified Codes : E11.65 - Type 2 diabetes mellitus with hyperglycemia; Z79.4 - correction ( current) use of insulin (10) Oxygen dependent Status: Chronic (11) Loss of weight Status: Acute (12) Hypoxia Status: Chronic (13) CKD (chronic kidney disease) Status: Chronic Qualifiers: Chronic kidney disease stage: stage 3 (moderate) Qualified Codes: N18.3 - Chronic kidney disease, stage 3 (moderate) (14) Portal hypertension Status: Chronic (15) Edema Status: Acute Qualifiers: Edema type: generalized Qualified Codes: R60.1 - Generalized edema (16) Port-A-Cath in place Status: Acute (17) Poor venous access Status: Acute (18) Left shoulder pain Qualifiers: Chronicity: acute Qualified Codes: M25.512 - Pain in left shoulder (19) Hx of CABG Status: Chronic (20) B12 deficiency Status: Chronic (21) Contraindication to anticoagulation therapy Status: Chronic (22) Contraindication to antiplatelet therapy Status: Chronic (23) Venous stasis dermatitis Status: Acute Qualifiers: Laterality: left Qualified Codes: I87.2 - Venous insufficiency (chronic) ( peripheral) (24) Neutropenia Status: Chronic Qualifiers: Neutropenia type: unspecified Qualified Codes: D70.9 - Neutropenia, unspecified (25) Cirrhosis Qualifiers: Hepatic cirrhosis type: unspecified hepatic cirrhosis Ascites presence: with ascites Qualified Codes: K74.60 - Unspecified cirrhosis of liver; R18.8 - Other ascites (26) Portal hypertension Status: Chronic (27) Renal insufficiency Status: Acute Clinical Quality Measures Admission Status Admission Dx Assessment: Critical illness myopathy with severe debilitating requiring inpatient rehabilitation prior to going home to return to independent living Hypoxia requiring 2 L of oxygen supplementation 05/01 Paroxysmal atrial fibrillation Transfusion dependent anemia managed by Dr. Haywood Type II diabetes mellitus Chronic GI bleeding CAD Previous bypass Hyperlipidemia Hypothyroidism History of hepatitis B COPD Thrombocytopenia Chronic renal insufficiency Hypertension Long's esophagus Chronic diastolic heart failure Morbid obesity Plan: Continue diuresis of 80 mg Lasix by mouth daily Evaluate cardiac meds per Dr. Sheila Field evaluation and management of transfusion-dependent anemia Appreciate pulmonology consultation for hypoxemia and maintain oxygen DVT/VTE Risk/Contraindication: Risk Factor Score Per Nursin RFS Level Per Nursing on Admit: 4+=Very High MICHELLE GARCIA DO Jun 29, 2018 09:01
[2018-06-29] MEDS: TRIAMCINOLONE 0.1% CR (KENALOG) 15 GM TUBE TOP SCH ×2 (09:03→21:53)
[2018-06-29] MEDS: FOLIC ACID 1 MG TAB PO SCH (09:07)
[2018-06-29] MEDS: meTOprolol TARTRATE 25 MG (LOPRESSOR) TABLET PO SCH ×2 (09:07→21:49)
[2018-06-29] MEDS: MAGNESIUM OXIDE (MAG-OX)400 MG TAB PO SCH ×2 (09:07→17:26)
[2018-06-29] MEDS: DIGOXIN 0.125 MG (LANOXIN) TAB PO SCH (09:07)
[2018-06-29] MEDS: LORATADINE (CLARITIN) 10 MG TAB PO SCH (09:07)
[2018-06-29] MEDS: FUROSEMIDE 40 MG (LASIX) TAB PO SCH (09:08)
--- NOTE | 2018-06-29 09:50 | Cardiology Progress Note ---
Cardiology SOAP Progress Note Subjective: No significant cardiac complaints. Objective: I&O/Vital Signs 06/29/18 06/29/18 06/29/18 06:13 07:35 09:01 Temp 97.2 Pulse 62 62 Resp 19 B/P (MAP) 119/58 (78) 118/67 (84) Pulse Ox 93 O2 Delivery Nasal Cannula Nasal Cannula O2 Flow Rate 2.00 2.00 06/29/18 00:00 Intake Total 550 ml Balance 550 ml Weight (Pounds): 267 Weight (Ounces): 3.2 Weight (Calculated Kilograms): 121.345786 Constitutional: AAO x 3, well-developed, well-nourished, other (obese) Respiratory: chest is bilaterally symmetric, lungs clear to auscultation, other (tenderness over lower sternum) Cardiovascular: regular rate-rhythm, S1 and S2, systolic murmur (soft KAVITA at card base) Gastrointestional: No tender; soft; No guarding, No rebound; audible bowel sounds Extremities: No clubbing, No cyanosis, No significant edema Neurologic/Psychiatric: alert, normal mood/affect, oriented x 3, grossly intact , power is 5/5 both on sides Skin: warm/dry; No cyanosis, No cool, No diaphoresis, No rash on exposed areas , No ulcerations on exposed areas Results/Procedures: Labs Laboratory Tests 06/28/18 15:54: Glucometer 139H 06/28/18 20:32: Glucometer 266H 06/29/18 05:22: Glucometer 283H 06/29/18 05:25: White Blood Count 3.1L, Red Blood Count 3.16L, Hemoglobin 9.2L, Hematocrit 30L, Mean Corpuscular Volume 94, Mean Corpuscular Hemoglobin 29, Mean Corpuscular Hemoglobin Concent 31L, Red Cell Distribution Width 16.7H, Platelet Count 124L, Mean Platelet Volume 10.0, Neutrophils (%) (Auto) 79H, Lymphocytes (%) (Auto) 14 , Monocytes (%) (Auto) 7, Eosinophils (%) (Auto) 0, Basophils (%) (Auto) 0, Neutrophils # (Auto) 2.4, Lymphocytes # (Auto) 0.4L, Monocytes # (Auto) 0.2, Eosinophils # (Auto) 0.0, Basophils # (Auto) 0.0 06/29/18 10:55: Sodium Level 135, Potassium Level 4.6, Chloride Level 91L, Carbon Dioxide Level 34H, Anion Gap 10, Blood Urea Nitrogen 25H, Creatinine 2.34H, Estimat Glomerular Filtration Rate 21, BUN/Creatinine Ratio 11, Glucose Level 201H, Calcium Level 8.8, Corrected Calcium 9.8, Total Bilirubin 0.7, Aspartate Amino Transf (AST/SGOT) 26, Alanine Aminotransferase (ALT/SGPT) 11, Alkaline Phosphatase 57, Total Protein 6.5, Albumin 2.8L 06/29/18 11:14: Glucometer 210H Microbiology 06/22/18 MRSA Screen - Final, Complete MRSA not isolated A/P: Assessment/Dx: Admission Diagnosis sinus tachycardia, PAF, Hypertension Coronary artery disease Chronic renal insufficiency Anemia, Shortness of breath Plan: Shortness of breath, better. on lasix. Chest x-ray today. Sinus tachycardia, multifactorial, history of paroxysmal atrial fibrillation. currently in sinus rhythm. Borderline BP : low dose bb. Status post respiratory failure with pneumonia and UTI and sepsis. Improved, receiving physical therapy Debility and generalized weakness. Receiving physical therapy Anemia- worsening. Has been following with Dr. Field. Port placed. Coronary artery disease, history of CABG 4 done in February 2018. Clinically stable. Continue to monitor History of paroxysmal atrial fibrillation, unable to tolerate oral anticoagulation due to recurrent GI bleed. Moderate size left pericardial effusion, persistent since the bypass surgery. Maintained on Lasix, continue to monitor. Congestive heart failure, chronic left ventricular diastolic dysfunction, secondary to hypertension. Hypertension, controlled on current medication, continue to monitor History of hepatic cirrhosis, unknown etiology. Scheduled to see a scallop shucker as an outpatient History of esophageal paresis and gastritis. Followed and managed by primary care physician next History of GAVE History of ascites secondary to hepatic cirrhosis Status post pneumonia and UTI resulted in septic shock and encephalopathy Status post respiratory failure. Obesity, BMI 45 Thank you for your consultation. Please call me if you have any questions. Estela Jorge MD, FACP, FACC, FSCAI, FHRS, CCDS Interventional Cardiology Cardiac Electrophysiology Vascular Medicine and Endovascular Interventions Wei JORGE MD Jun 29, 2018 9:50 am
--- NOTE | 2018-06-29 10:43 | Occupational Ther Daily Note ---
OT Current Status-Daily Note Subjective Pt. states that she got a shot in left shoulder. States that she is still "sore ," but that she is feeling better. Appearance Pt. up in chair. Agrees to shower. Mental Status/Objective Patient Orientation: Person, Place Therapy Code Descriptions/Definitions Functional [place] Measure: 0=Not Assessed/NA 4=Minimal Assistance 1=Total Assistance 5=Supervision or Setup 2=Maximal Assistance 6=Modified [place] 3=Moderate Assistance 7=Complete [place] Attachments: IV ADL-Treatment Therapy Code Descriptions/Definitions Functional [place] Measure: 0=Not Assessed/NA 4=Minimal Assistance 1=Total Assistance 5=Supervision or Setup 2=Maximal Assistance 6=Modified [place] 3=Moderate Assistance 7=Complete [place] Therapy Quality Codes: 6 Independent with activity with or without an assistive device 5 Patient requires set up or clean up by helper. Patient completes activity by themselves 4 Supervision or touching assist (CGA). [place] provide cues , steadying assist 3 The helper provides less than half the effort to complete the activity 2 The helper provides more than half the effort to complete the activity 1 Dependent. The helper does all the effort to complete an activity 7 Patient refused to complete or attempt activity 9 The patient did not perform the activity before the current illness or injury 88 Not attempted due to Medical conditions or safety concerns Bathing (FIM): 5 (SBA to wash all parts.) Shower/Bathe Self (QC): 4 Upper Body (FIM): 6 Upper Body Dressing (QC): 6 Lower Body Dressing (FIM): 5 (SBA to don LE clothing using AE. Requires cues at times to remember how to use equipment.) Lower Body Dressing (QC): 4 On/Off Footwear (QC): 4 Toileting (FIM): 6 (With toilet tongs) Toileting Hygiene (QC): 6 Transfers (B, C, W/C) (FIM): 6 Toilet/Commode Transfer (FIM): 6 Toilet Transfer (QC): 6 Shower Transfer(FIM): 5 Education OT Patient Education: Correct positioning, Modified ADL techniques, Progress toward Goal/Update tx plan, Purpose of tx/functional activities, Reviewed precautions, Transfer techniques, Use of adapted equipment Teaching Recipient: Patient Teaching Methods: Demonstration, Discussion Response to Teaching: Verbalize Understanding, Return Demonstration OT Short Term Goals Short Term Goals Time Frame: Jun 25, 2018 Lower Body Dressing(FIM): 5 Toileting(FIM): 5 Transfers (B,C,W/C) (FIM): 4 Toilet/Commode Transfer(FIM): 5 1=Demonstrate adherence to instructed precautions during ADL tasks. 2=Patient will verbalize/demonstrate understanding of assistive devices/ modifications for ADL. 3=Patient will improve strength/tolerance for activity to enable patient to perform ADL's. OT Longterm Goals Tile Setter Goals Time Frame: Jul 09, 2018 Eating (FIM): 6 Eating (QC): 6 Groomin Oral Hygiene (QC): 6 Bathing(FIM): 6 Shower/Bathe Self (QC): 6 Upper Body Dressing(FIM): 6 Upper Body Dressing (QC): 6 Lower Body Dressing(FIM): 6 Lower Body Dressing (QC): 6 On/Off Footwear (QC): 6 Toileting(FIM): 6 Toileting Hygiene (QC): 6 Toilet/Commode Transfer(FIM): 6 Toilet/Commode Transfer (QC): 6 Shower Transfer(FIM): 5 Additional Goals: 1-Demonstrate ADL Tasks, 2-Verbalize Understanding, 3- ImproveStrength/Tamy 1=Demonstrate adherence to instructed precautions during ADL tasks. 2=Patient will verbalize/demonstrate understanding of assistive devices/ modifications for ADL. 3=Patient will improve strength/tolerance for activity to enable patient to perform ADL's. OT Education/Plan Problem List/Assessment Assessment: Decreased Activ Tolerance, Decreased UE Strength, Impaired I ADL's , Restricted Funct UE ROM Pt demonstrates decreased activity tolerance, strength, mobility, and ADL functioning. Pt to benefit from skilled OT intervention for ADL training, transfers, strengthening, and home safety education to increase functional independence and allow safe discharge home. Discharge Recommendations Plan/Recommendations: Continue POC Therapy D/C Recommendations: Home w/ Family Support, Occupational Therapy Home Care Equpiment Recommendations-D/C: Hip Kit Treatment Plan/Plan of Care Treatment,Training & Education: Yes Patient would benefit from OT for education, treatment and training to promote independence in ADL's, mobility, safety and/or upper extremity function for ADL' s. Plan of Care: ADL Retraining, Functional Mobility, Group Exercise/Act as Ind, UE Funct Exercise/Act Treatment Duration: Jul 09, 2018 Frequency: At least 5 of 7 days/Wk (IRF) Estimated Hrs Per Day: 1.5 hours per day Agreement: Yes Rehab Potential: Fair Time/GCodes Start Time: 09:30 Stop Time: 10:30 Total Time Billed (hr/min): 60 Billed Treatment Time 1, ADL x 4 SANDRA COMER OT Jun 29, 2018 10:43
[2018-06-29] MEDS: ACETAMINOPHEN 325 MG TABLET PO PRN (11:03)
[2018-06-29 11:19] LABS: ALBUMIN 2.8 GM/DL (3.2-4.5); BILIRUBIN,TOTAL 0.7 MG/DL (0.1-1.0); CALCIUM 8.8 MG/DL (8.5-10.1); CREATININE SERUM 2.34 MG/DL (0.60-1.30); POTASSIUM 4.6 MMOL/L (3.6-5.0); TOTAL PROTEIN 6.5 GM/DL (6.4-8.2)
--- NOTE | 2018-06-29 11:50 | Physical Therapy Daily Note ---
PT Daily Note-Current Subjective Pt. agrees to rx. States she is anxious to attempt steps. This will allow her to gt in out car and other areas of her home. Pain Numeric Pain Scale: 3 Location: Left Location Body Site: Shoulder Pain Description: Ache Mental Status Patient Orientation: Normal For Age Attachments: Oxygen (2L) Transfers Therapy Code Descriptions/Definitions Functional [place] Measure: 0=Not Assessed/NA 4=Minimal Assistance 1=Total Assistance 5=Supervision or Setup 2=Maximal Assistance 6=Modified [place] 3=Moderate Assistance 7=Complete [place] Therapy Quality Codes: 6 Independent with activity with or without an assistive device 5 Patient requires set up or clean up by helper. Patient completes activity by themselves 4 Supervision or touching assist (CGA). [place] provide cues , steadying assist 3 The helper provides less than half the effort to complete the activity 2 The helper provides more than half the effort to complete the activity 1 Dependent. The helper does all the effort to complete an activity 7 Patient refused to complete or attempt activity 9 The patient did not perform the activity before the current illness or injury 88 Not attempted due to Medical conditions or safety concerns Transfers (B, C, W/C) (FIM): 6 Scootin Rollin Roll Left to Right (QC): 6 Supine to/from Sit: 6 Sit to/from Stand: 6 Sit to Lying (QC): 6 Sit to Stand (QC): 6 Chair/[id number]-[id number] Xfer(QC): 6 Bed to/from Chair: 6 Car Transfer (QC): 5 Weight Bearing Right Lower Extremity: Right Weight Bearing/Tolerated Left Lower Extremity: Left Weight Bearing/Tolerated Gait Training Does the Patient Walk?: Yes Gait (FIM): 5 Distance (FIM): 3=150 ft (x1) Walk 10 feet (QC): 6 Walk 50 ft with 2 Turns(QC): 6 Walk 150 ft (QC): 5 Walking 10ft/uneven surface-QC: 5 Gait Level of Assist: 5 Gait Persons Needed: 1 Gait Assistive Device: FWW needs supervision only, manages O2 tubing well, no LOB Wheelchair Training Does the Pt Use a Wheelchair?: Yes Wheelchair (FIM): 2 Wheelchair Distance: 5=416-44 ft (100x2) Wheelchair Level of Assist: 4 Wheel 50 ft with 2 turns (QC): 4 Type of Wheelchair: Manual fatigues and has pain in left shoulder when using UEs to propel chair, Stair Training Stair Training: Handrails/: uses walker Stairs (FIM): 2 #of Steps: 4 1 Step (curb) (QC): 4 4 Steps (QC): 4 Stairs: Pattern: Step to Level of Assist: 4 CGA and assist for O2 tank etc Balance Special Test Comments unsafe to attempt picking item up from floor Assessment Current Status: Good Progress pt. happy she could accomplish stair steps at pink step level similar to home situation PT Short Term Goals Short Term Goals Time Frame: Jun 25, 2018 Transfers (B,C,W/C) (FIM): 4 Gait (FIM): 1 Gait Distance Comment: 25' Gait Level of Assist: 4 Gait Assistive Device: FWW Wheelchair Distance: 150' PT Correction Goals Correction Goals PT Material Handler Goals Time Frame: Jul 09, 2018 Transfers (B,C,W/C) (FIM): 5 Sit to Lying (QC): 4 Lying-Sitting on Side/Bed(QC): 4 Sit to Stand (QC): 4 Rollin Roll Left to Right (QC): 4 Chair/[id number]-Smtbj Xfer(QC): 4 Car Transfer (QC): 4 Gait (FIM): 2 Distance: 50' Walk 10 feet (QC): 4 Walk 10ft-Uneven Surface(QC): 4 Walk 50ft with 2 Turns (QC): 4 Gait Level of Assist: 5 Gait Assistive Device: FWW Stairs (FIM): 1 # of Steps: 1 1 Step (curb) (QC): 4 Stairs Level Of Assist: 4 PT Plan Treatment/Plan Treatment Plan: Continue Plan of Care Treatment Plan: Bed Mobility, Concurrent Therapy, Education, Functional Activity Tamy, Functional Strength, Group Therapy, Gait, Safety, Therapeutic Exercise, Transfers Treatment Duration: Jul 09, 2018 Frequency: At least 5 of 7 days/Wk (IRF) Estimated Hrs Per Day: 1.5 hours per day Patient and/or Family Agrees t: Yes Safety Risks/Education Patient Education: Gait Training, Transfer Techniques, Steps Teaching Recipient: Patient Teaching Methods: Demonstration, Discussion Response to Teaching: Return Demonstration, Reinforcement Needed Time/GCodes Time In: 1120 Time Out: 1150 Total Billed Treatment Time: 30 Total Billed Treatment 1,FA30m G Codes Necessary: MARIO Barrera HOME CARE ASSISTANT Jun 29, 2018 11:50
[2018-06-29] MEDS: CALCIUM CARBONATE 500 MG (TUMS) TAB.CHEW PO PRN (12:25)
--- NOTE | 2018-06-29 14:16 | Occupational Ther Daily Note ---
OT Current Status-Daily Note Subjective Pt. reports a "small sharp pain" in left shoulder with movement. Does not rate pain and declines pain medicine. Appearance Pt. up in chair. Agreeable to work with OT. Mental Status/Objective Patient Orientation: Person, Place Therapy Code Descriptions/Definitions Functional [place] Measure: 0=Not Assessed/NA 4=Minimal Assistance 1=Total Assistance 5=Supervision or Setup 2=Maximal Assistance 6=Modified [place] 3=Moderate Assistance 7=Complete [place] Attachments: Oxygen ADL-Treatment Therapy Code Descriptions/Definitions Functional [place] Measure: 0=Not Assessed/NA 4=Minimal Assistance 1=Total Assistance 5=Supervision or Setup 2=Maximal Assistance 6=Modified [place] 3=Moderate Assistance 7=Complete [place] Therapy Quality Codes: 6 Independent with activity with or without an assistive device 5 Patient requires set up or clean up by helper. Patient completes activity by themselves 4 Supervision or touching assist (CGA). [place] provide cues , steadying assist 3 The helper provides less than half the effort to complete the activity 2 The helper provides more than half the effort to complete the activity 1 Dependent. The helper does all the effort to complete an activity 7 Patient refused to complete or attempt activity 9 The patient did not perform the activity before the current illness or injury 88 Not attempted due to Medical conditions or safety concerns Transfers (B, C, W/C) (FIM): 5 (SBA with walker) Pt. agrees to ambulate with walker to therapy gym. Movements are slow but pt. is able to ambulate the whole way. Oxygen on during this time at 2 L. Once in therapy gym, OT assessed left shoulder. Completed very gentle PROM in shoulder flexion/abduction/forearm supination. Pt. is able to demonstrate 100 degrees shoulder flexion actively, which is an increase from yesterday. Unable to hold this long and tolerates PROM to 90 degrees. Pt. is able to demonstrate abduction to approximately 40 degrees. Tolerates this passively as well. Pt. is able to supinate forearm to neutral position, which is also an increase from yesterday. OT completes these movements gently with instruction to not do too much today, even though pt. is eager to gain function. Pt. ambulates back to room. All needs are met. Education OT Patient Education: Correct positioning, Modified ADL techniques, Progress toward Goal/Update tx plan, Purpose of tx/functional activities, Reviewed precautions, Rehab process, Transfer techniques Teaching Recipient: Patient Teaching Methods: Demonstration, Discussion Response to Teaching: Verbalize Understanding, Return Demonstration OT Short Term Goals Short Term Goals Time Frame: Jun 25, 2018 Lower Body Dressing(FIM): 5 Toileting(FIM): 5 Transfers (B,C,W/C) (FIM): 4 Toilet/Commode Transfer(FIM): 5 1=Demonstrate adherence to instructed precautions during ADL tasks. 2=Patient will verbalize/demonstrate understanding of assistive devices/ modifications for ADL. 3=Patient will improve strength/tolerance for activity to enable patient to perform ADL's. OT Electric Sealing Machine Operator Goals Electric Sealing Machine Operator Goals Time Frame: Jul 09, 2018 Eating (FIM): 6 Eating (QC): 6 Groomin Oral Hygiene (QC): 6 Bathing(FIM): 6 Shower/Bathe Self (QC): 6 Upper Body Dressing(FIM): 6 Upper Body Dressing (QC): 6 Lower Body Dressing(FIM): 6 Lower Body Dressing (QC): 6 On/Off Footwear (QC): 6 Toileting(FIM): 6 Toileting Hygiene (QC): 6 Toilet/Commode Transfer(FIM): 6 Toilet/Commode Transfer (QC): 6 Shower Transfer(FIM): 5 Additional Goals: 1-Demonstrate ADL Tasks, 2-Verbalize Understanding, 3- ImproveStrength/Tamy 1=Demonstrate adherence to instructed precautions during ADL tasks. 2=Patient will verbalize/demonstrate understanding of assistive devices/ modifications for ADL. 3=Patient will improve strength/tolerance for activity to enable patient to perform ADL's. OT Education/Plan Problem List/Assessment Assessment: Decreased Activ Tolerance, Decreased UE Strength, Impaired I ADL's , Impaired Self-Care Skills, Restricted Funct UE ROM Pt demonstrates decreased activity tolerance, strength, mobility, and ADL functioning. Pt to benefit from skilled OT intervention for ADL training, transfers, strengthening, and home safety education to increase functional independence and allow safe discharge home. Discharge Recommendations Plan/Recommendations: Continue POC Therapy D/C Recommendations: Home w/ Family Support, Scheduled Assistance Equpiment Recommendations-D/C: Hip Kit Treatment Plan/Plan of Care Treatment,Training & Education: Yes Patient would benefit from OT for education, treatment and training to promote independence in ADL's, mobility, safety and/or upper extremity function for ADL' s. Plan of Care: ADL Retraining, Functional Mobility, Group Exercise/Act as Ind, UE Funct Exercise/Act Treatment Duration: Jul 09, 2018 Frequency: At least 5 of 7 days/Wk (IRF) Estimated Hrs Per Day: 1.5 hours per day Agreement: Yes Rehab Potential: Fair Time/GCodes Start Time: 13:30 Stop Time: 14:00 Total Time Billed (hr/min): 30 Billed Treatment Time 1, FA x 15minutes, Ex x 15minutes SANDRA COMER OT Jun 29, 2018 14:16
--- NOTE | 2018-06-29 14:50 | NUR ---
Follow up visit: Facilitated free expression of thoughts and feelings, offered empathic listening, and encouraged pt to name hopes and sources of comfort and strength. Pt's nga in God, family, and friends are sources of encouragement.
[2018-06-29 15:56] VITALS: BP 121/69
--- NOTE | 2018-06-29 16:51 | Progress Note-Standard ---
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 She developed coronary artery disease requiring 4 vessel CABG could not tolerate any anticoagulation including aspirin secondary to significant bleeding. Recent episode of the respiratory failure following infection/sepsis requiring ventilator management but extubated with significant deconditioning. Currently undergoing physical therapy for strengthening. No hematochezia today. Appetite low but trying to eat small amounts frequently. Hemoglobin 9.1 today. She has an outpatient appointment with Dr. Norton at [facility] on 07/01/2018. I advised her to keep this appointment. Patient may leave on outpatient pass for the appointment if necessary. She ambulated better with the walker today. Continue PT for strengthening and ambulation. Monitor hemoglobin closely. Will follow patient with you. SHIREEN AGARWAL Jun 29, 2018 16:50
--- NOTE | 2018-06-29 17:14 | Diagnostic Imaging Report ---
EXAMINATION: PA and lateral chest at 9:47 a.m. INDICATION: Respiratory distress. FINDINGS: As noted on the prior exam of 06/22/2018, the left midlung and the left lung base are opacified by atelectasis/infiltrate and fluid. The density in the left perihilar region does seem less prominent than noted on the prior exam, however. The left apex and the right lung are generally clear, although there is a very small amount of atelectasis/infiltrate and fluid in the right lung base. The cardiomegaly and the sternotomy wires and surgical plates seen previously are again evident and no different. The mediastinum is not widened. The osseous structures are intact. The right-sided Port-A-Cath remains unchanged in position. IMPRESSION: The appearance of the chest has improved somewhat since the prior exam as the left perihilar region does seem better aerated. There is still opacification of the left midlung and left lung base by atelectasis/infiltrate and fluid, however. A followup study would be recommended for continued evaluation. Dictated by: Dictated on workstation # [id number]
--- NOTE | 2018-06-29 19:18 | NUR ---
bedside report received from JUAN PABLO MACKAY, assume care of pt
--- NOTE | 2018-06-29 21:00 | NUR ---
assessments & interventions completed, see assessments & interventions, fsbs 236 novalog 5 units given
[2018-06-29 21:40] VITALS: BP 119/65
[2018-06-29] MEDS: SENNA W/DOCUSATE (SENOKOT S) TABLET PO SCH (21:49)
[2018-06-29] MEDS: MELATONIN 3 MG TABLET PO PRN (21:49)
--- NOTE | 2018-06-29 21:49 | NUR ---
c/o lt shoulder pain level 7/10 on numeric scale, Ultram 50mg Zanaflex 2mg po given at pt request
--- NOTE | 2018-06-29 22:20 | NUR ---
resting quietly in bed, pain level 0/10 on flacc scale
[2018-06-30] MEDS: ONDANSETRON 8 MG (ZOFRAN) ORAL DISSOLVE TAB PO PRN ×2 (05:37→20:31)
--- NOTE | 2018-06-30 05:37 | NUR ---
asking for Zofran, Zofran 8mg po given
[2018-06-30 05:38] LABS: BASOPHILS % (AUTO) 0 % (0-10); EOSINOPHILS % (AUTO) 1 % (0-10); HEMATOCRIT 29 % (35-52); HEMOGLOBIN 9.2 G/DL (11.5-16.0); LYMPHOCYTES # (AUTO) 0.4 X 10^3 (1.0-4.0); LYMPHOCYTES % (AUTO) 8 % (12-44); MEAN CORPUSCULAR HEMOGLOBIN 30 PG (25-34); MEAN CORPUSCULAR HGB CONC 31 G/DL (32-36); MEAN CORPUSCULAR VOLUME 94 FL (80-99); MEAN PLATELET VOLUME 9.9 FL (7.4-10.4); MONOCYTES # (AUTO) 0.5 X 10^3 (0.0-1.0); MONOCYTES % (AUTO) 12 % (0-12); NEUTROPHILS # (AUTO) 3.5 X 10^3 (1.8-7.8); NEUTROPHILS % (AUTO) 80 % (42-75); PLATELET COUNT 137 10^3/uL (130-400); RED BLOOD COUNT 3.11 10^6/uL (4.35-5.85); RED CELL DISTRIBUTION WIDTH 17.2 % (10.0-14.5); WHITE BLOOD COUNT 4.3 10^3/uL (4.3-11.0)
[2018-06-30 05:56] LABS: BILIRUBIN,TOTAL 0.5 MG/DL (0.1-1.0); CALCIUM 8.8 MG/DL (8.5-10.1); CREATININE SERUM 2.3 MG/DL (0.60-1.30); MAGNESIUM 1.9 MG/DL (1.8-2.4); POTASSIUM 4.9 MMOL/L (3.6-5.0); TOTAL PROTEIN 6.7 GM/DL (6.4-8.2)
[2018-06-30 06:00] VITALS: BP 131/64
[2018-06-30] MEDS: inSUlin ASPART (NovoLOG) 1 UNIT/0.01 ML (CHARGE PER UNIT) SC SCH ×4 (06:00→20:55)
[2018-06-30] MEDS: LEVOTHYROXINE 100 MCG (LEVOTHROID) TAB PO SCH (06:33)
--- NOTE | 2018-06-30 07:25 | NUR ---
bedside report given to JUAN PABLO MACKAY
--- NOTE | 2018-06-30 08:41 | PM&R Progress Note ---
Subjective This was a face to face visit with the patient. Date Seen by Provider: Jun 30, 2018 Time Seen by Provider: 08:15 Subjective/Events-last exam Patient was seen in her room in the bathroom Darrick helps her DC planning [facility] appt tomorrow and her will drive her Hgb stable Monitor creatinine and holding Lasix Edema persists CHC at DC Review of Systems General: Fatigue Pulmonary: Dyspnea Gastrointestinal: Nausea Objective Physician Exam Last Set of Vital Signs Vital Signs Date Time Temp Pulse Resp B/P (MAP) Pulse Ox O2 Delivery O2 Flow Rate FiO2 06/30/18 06:00 97.0 68 20 131/64 (86) 95 Nasal Cannula 2.00 Capillary Refill : I&O Intake and Output 06/30/18 00:00 Intake Total 1310 ml Output Total 250 ml Balance 1060 ml Intake Oral 1310 ml Output Urine Total 250 ml # Voids 5 # Bowel Movements 3 General: Alert, Oriented X3, Cooperative, No Acute Distress HEENT: Atraumatic, PERRLA, EOMI, Mucous Memb Moist/[place] Neck: Supple, No JVD, No Thyromegaly, +2 Carotid Pulse No Bruit, No LAD Lungs: Clear to Auscultation, Normal Air Movement, Other (diminished BS bases especially left) Heart: Regular Rate, Normal S1, Normal S2 Abdomen: Normal Bowel Sounds, Soft, No Tenderness, No Hepatosplenomegaly, No Masses Extremities: No Clubbing, No Cyanosis, Other (edema noted lower legs) Skin: No Rashes, No Breakdown, No Significant Lesion, Other (Subtle venous stasis dermatitis left lower leg) Neuro: Normal Gait (although slowed), Normal Speech, Normal Tone, Sensation Intact, Cranial Nerves 3-12 NL, Reflexes 2+, Other (global weakness of all extremities 4/5 improved) Psych/Mental Status: Mental Status NL, Mood NL Results Lab Data Laboratory Tests 06/27/18 11:23: Glucometer 176H 06/27/18 15:45: Glucometer 142H 06/27/18 21:31: Glucometer 186H 06/28/18 05:57: Glucometer 146H 06/28/18 06:00: White Blood Count 3.9L, Red Blood Count 3.01L, Hemoglobin 8.9L, Hematocrit 29L, Mean Corpuscular Volume 96, Mean Corpuscular Hemoglobin 30, Mean Corpuscular Hemoglobin Concent 31L, Red Cell Distribution Width 17.6H, Platelet Count 134, Mean Platelet Volume 9.8, Neutrophils (%) (Auto) 59, Lymphocytes (%) (Auto) 20, Monocytes (%) (Auto) 13H, Eosinophils (%) (Auto) 7, Basophils (%) (Auto) 1, Neutrophils # (Auto) 2.3, Lymphocytes # (Auto) 0.8L, Monocytes # (Auto) 0.5, Eosinophils # (Auto) 0.3, Basophils # (Auto) 0.0, Sodium Level 138, Potassium Level 4.4, Chloride Level 92L, Carbon Dioxide Level 36H, Anion Gap 10, Blood Urea Nitrogen 19H, Creatinine 1.96H, Estimat Glomerular Filtration Rate 26, BUN/ Creatinine Ratio 10, Glucose Level 137H, Calcium Level 9.0, Corrected Calcium 10.0, Magnesium Level 1.5L, Total Bilirubin 0.9, Aspartate Amino Transf (AST/ SGOT) 28, Alanine Aminotransferase (ALT/SGPT) 9, Alkaline Phosphatase 60, Total Protein 6.2L, Albumin 2.8L 06/28/18 10:59: Glucometer 128H 06/28/18 15:54: Glucometer 139H 06/28/18 20:32: Glucometer 266H 06/29/18 05:22: Glucometer 283H 06/29/18 05:25: White Blood Count 3.1L, Red Blood Count 3.16L, Hemoglobin 9.2L, Hematocrit 30L, Mean Corpuscular Volume 94, Mean Corpuscular Hemoglobin 29, Mean Corpuscular Hemoglobin Concent 31L, Red Cell Distribution Width 16.7H, Platelet Count 124L, Mean Platelet Volume 10.0, Neutrophils (%) (Auto) 79H, Lymphocytes (%) (Auto) 14 , Monocytes (%) (Auto) 7, Eosinophils (%) (Auto) 0, Basophils (%) (Auto) 0, Neutrophils # (Auto) 2.4, Lymphocytes # (Auto) 0.4L, Monocytes # (Auto) 0.2, Eosinophils # (Auto) 0.0, Basophils # (Auto) 0.0 06/29/18 10:55: Sodium Level 135, Potassium Level 4.6, Chloride Level 91L, Carbon Dioxide Level 34H, Anion Gap 10, Blood Urea Nitrogen 25H, Creatinine 2.34H, Estimat Glomerular Filtration Rate 21, BUN/Creatinine Ratio 11, Glucose Level 201H, Calcium Level 8.8, Corrected Calcium 9.8, Total Bilirubin 0.7, Aspartate Amino Transf (AST/SGOT) 26, Alanine Aminotransferase (ALT/SGPT) 11, Alkaline Phosphatase 57, Total Protein 6.5, Albumin 2.8L 06/29/18 11:14: Glucometer 210H 06/29/18 15:54: Glucometer 177H 06/29/18 20:32: Glucometer 236H 06/30/18 05:28: Glucometer 207H 06/30/18 05:30: White Blood Count 4.3, Red Blood Count 3.11L, Hemoglobin 9.2L, Hematocrit 29L, Mean Corpuscular Volume 94, Mean Corpuscular Hemoglobin 30, Mean Corpuscular Hemoglobin Concent 31L, Red Cell Distribution Width 17.2H, Platelet Count 137, Mean Platelet Volume 9.9, Neutrophils (%) (Auto) 80H, Lymphocytes (%) (Auto) 8L , Monocytes (%) (Auto) 12, Eosinophils (%) (Auto) 1, Basophils (%) (Auto) 0, Neutrophils # (Auto) 3.5, Lymphocytes # (Auto) 0.4L, Monocytes # (Auto) 0.5, Eosinophils # (Auto) 0.0, Basophils # (Auto) 0.0, Sodium Level 136, Potassium Level 4.9, Chloride Level 90L, Carbon Dioxide Level 34H, Anion Gap 12, Blood Urea Nitrogen 30H, Creatinine 2.30H, Estimat Glomerular Filtration Rate 22, BUN/ Creatinine Ratio 13, Glucose Level 181H, Calcium Level 8.8, Corrected Calcium 9.6, Magnesium Level 1.9, Total Bilirubin 0.5, Aspartate Amino Transf (AST/SGOT ) 22, Alanine Aminotransferase (ALT/SGPT) 10, Alkaline Phosphatase 63, Total Protein 6.7, Albumin 3.0L Microbiology 06/22/18 MRSA Screen - Final, Complete MRSA not isolated Assessment/Plan Assessment and Plan (1) Myopathy Status: Acute (2) 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 (3) Atrial fibrillation Qualifiers: Qualified Codes: I48.0 - Paroxysmal atrial fibrillation Status: Chronic (4) Hypothyroidism Qualifiers: Qualified Codes: E03.9 - Hypothyroidism, unspecified Status: Chronic (5) Coronary artery disease Qualifiers: Qualified Codes: I25.10 - Atherosclerotic heart disease of [place] coronary artery without angina pectoris Status: Chronic (6) Hypertension Qualifiers: Qualified Codes: I10 - Essential (primary) hypertension Status: Chronic (7) GI bleeding Qualifiers: Qualified Codes: K31.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 Status: Chronic (8) Transfusion-dependent anemia Status: Chronic (9) Type 2 diabetes mellitus with hyperglycemia Qualifiers: Qualified Codes: E11.65 - Type 2 diabetes mellitus with hyperglycemia; Z79.4 - senior living (current) use of insulin Status: Chronic (10) Oxygen dependent Status: Chronic (11) Loss of weight Status: Acute (12) Hypoxia Status: Chronic (13) CKD (chronic kidney disease) Qualifiers: Qualified Codes: N18.3 - Chronic kidney disease, stage 3 (moderate) Status: Chronic (14) Portal hypertension Status: Chronic (15) Edema Qualifiers: Qualified Codes: R60.1 - Generalized edema Status: Acute (16) Port-A-Cath in place Status: Acute (17) Poor venous access Status: Acute (18) Left shoulder pain Qualifiers: Qualified Codes: M25.512 - Pain in left shoulder (19) Hx of CABG Status: Chronic (20) B12 deficiency Status: Chronic (21) Contraindication to anticoagulation therapy Status: Chronic (22) Contraindication to antiplatelet therapy Status: Chronic (23) Venous stasis dermatitis Qualifiers: Qualified Codes: I87.2 - Venous insufficiency (chronic) (peripheral) Status: Acute (24) Neutropenia Qualifiers: Qualified Codes: D70.9 - Neutropenia, unspecified Status: Chronic (25) Cirrhosis Qualifiers: Qualified Codes: K74.60 - Unspecified cirrhosis of liver; R18.8 - Other ascites (26) Portal hypertension Status: Chronic (27) Renal insufficiency Status: Acute Co-Morbidities that are continuing to impact the rehab process: (include details ) MICHELLE GARCIA DO Jun 30, 2018 08:41
--- NOTE | 2018-06-30 09:04 | Physical Therapy Daily Note ---
PT Daily Note-Current Subjective Pt. hopes to DC tomorrow. States she usually TRFs in to a large/high truck and hopes she can do it . "Sunita gained 2 lbs and I can feel it in my abdomen" Pain Location: No Pain Reported Appearance states left shoulder feels a little better today since injection Mental Status Patient Orientation: Normal For Age Attachments: Oxygen (2L) Transfers Therapy Code Descriptions/Definitions Functional [place] Measure: 0=Not Assessed/NA 4=Minimal Assistance 1=Total Assistance 5=Supervision or Setup 2=Maximal Assistance 6=Modified [place] 3=Moderate Assistance 7=Complete [place] Therapy Quality Codes: 6 Independent with activity with or without an assistive device 5 Patient requires set up or clean up by helper. Patient completes activity by themselves 4 Supervision or touching assist (CGA). [place] provide cues , steadying assist 3 The helper provides less than half the effort to complete the activity 2 The helper provides more than half the effort to complete the activity 1 Dependent. The helper does all the effort to complete an activity 7 Patient refused to complete or attempt activity 9 The patient did not perform the activity before the current illness or injury 88 Not attempted due to Medical conditions or safety concerns Transfers (B, C, W/C) (FIM): 6 Scootin Rollin Roll Left to Right (QC): 6 Supine to/from Sit: 6 Sit to/from Stand: 6 Sit to Lying (QC): 6 Sit to Stand (QC): 6 Chair/Seo-tv-Aszqi Xfer(QC): 6 Bed to/from Chair: 6 Car Transfer (QC): 3 pt. needs mod assist to get in car simulator at the height pt. indicates is appropriate Weight Bearing Right Lower Extremity: Right Weight Bearing/Tolerated Left Lower Extremity: Left Weight Bearing/Tolerated Gait Training Does the Patient Walk?: Yes Gait (FIM): 5 Distance (FIM): 3=150 ft (150,160) Walk 10 feet (QC): 6 Walk 50 ft with 2 Turns(QC): 6 Walk 150 ft (QC): 5 Walking 10ft/uneven surface-QC: 6 Gait Level of Assist: 5 (needs assist for O2 for walking using portable O2) Gait Persons Needed: 1 Gait Assistive Device: FWW household exception for 50-60 ft in room with FWW managing extended O2 tubing well, no LOB observed Wheelchair Training Does the Pt Use a Wheelchair?: Yes Wheelchair (FIM): 2 Wheelchair Distance: 5=138-34 ft (50,30) Wheelchair Level of Assist: 2 Wheel 50 ft with 2 turns (QC): 2 Type of Wheelchair: Manual with left shoulder pain pt. unable to manage w/c indep, also needs assist for braking at times Stair Training Stair Training: Handrails/: uses walker Stairs (FIM): 5 #of Steps: 4 1 Step (curb) (QC): 5 4 Steps (QC): 5 Stairs: Pattern: Step to Level of Assist: 5 needs assist to manage o2 tubing, sequence good, weight shift good Exercises Seated Therapy Exercises: Ankle pumps, Sit to stand, Long arc quads Seated Reps: 10 Treatments toileted , cleaned for BM efficiently etc, all SBA to Mod I Assessment Current Status: Good Progress gait with ext tubing mod I 50-60 ft, household dist, up down 4 small steps SBA, all TRF levels Mod I PT Short Term Goals Short Term Goals Time Frame: Jun 25, 2018 Transfers (B,C,W/C) (FIM): 4 Gait (FIM): 1 Gait Distance Comment: 25' Gait Level of Assist: 4 Gait Assistive Device: FWW Wheelchair Distance: 150' PT Interceptor Operator Goals Interceptor Operator Goals PT Alf Goals Time Frame: Jul 09, 2018 Transfers (B,C,W/C) (FIM): 5 Sit to Lying (QC): 4 Lying-Sitting on Side/Bed(QC): 4 Sit to Stand (QC): 4 Rollin Roll Left to Right (QC): 4 Chair/Rwi-fc-Sypbq Xfer(QC): 4 Car Transfer (QC): 4 Gait (FIM): 2 Distance: 50' Walk 10 feet (QC): 4 Walk 10ft-Uneven Surface(QC): 4 Walk 50ft with 2 Turns (QC): 4 Gait Level of Assist: 5 Gait Assistive Device: FWW Stairs (FIM): 1 # of Steps: 1 1 Step (curb) (QC): 4 Stairs Level Of Assist: 4 PT Plan Treatment/Plan Treatment Plan: Continue Plan of Care Treatment Plan: Bed Mobility, Concurrent Therapy, Education, Functional Activity Tamy, Functional Strength, Group Therapy, Gait, Safety, Therapeutic Exercise, Transfers Treatment Duration: Jul 09, 2018 Frequency: At least 5 of 7 days/Wk (IRF) Estimated Hrs Per Day: 1.5 hours per day Patient and/or Family Agrees t: Yes Safety Risks/Education Patient Education: Gait Training, Transfer Techniques, Steps, Correct Positioning, W/C Management, Disease Process, Safety Issues Teaching Recipient: Patient Teaching Methods: Demonstration, Discussion Response to Teaching: Verbalize Understanding, Return Demonstration, Reinforcement Needed Time/GCodes Time In: 800 Time Out: 900 Total Billed Treatment Time: 60 Total Billed Treatment 1,GT20m,FA40m G Codes Necessary: MARIO Barrera MUD TRUCKER Jun 30, 2018 09:04
[2018-06-30 09:20] VITALS: BP 129/60
[2018-06-30] MEDS: meTOprolol TARTRATE 25 MG (LOPRESSOR) TABLET PO SCH ×2 (09:22→20:23)
[2018-06-30] MEDS: MAGNESIUM OXIDE (MAG-OX)400 MG TAB PO SCH ×2 (09:22→17:30)
[2018-06-30] MEDS: FOLIC ACID 1 MG TAB PO SCH (09:22)
[2018-06-30] MEDS: LORATADINE (CLARITIN) 10 MG TAB PO SCH (09:22)
[2018-06-30] MEDS: DIGOXIN 0.125 MG (LANOXIN) TAB PO SCH (09:22)
[2018-06-30] MEDS: inSUlin NPH (NovoLIN N) 1 UNIT/0.01 ML (CHARGE PER UNIT) SQ SCH (09:23)
--- NOTE | 2018-06-30 09:34 | Cardiology Progress Note ---
Cardiology SOAP Progress Note Subjective: Mild shortness of breath. She has gained 2 pounds. Objective: I&O/Vital Signs 06/29/18 06/30/18 06/30/18 21:40 06:00 09:20 Temp 97.0 Pulse 73 68 57 Resp 20 20 B/P (MAP) 119/65 (83) 131/64 (86) 129/60 (83) Pulse Ox 92 95 O2 Delivery Nasal Cannula Nasal Cannula O2 Flow Rate 2.00 2.00 06/29/18 23:59 Intake Total 800 ml Balance 800 ml Weight (Pounds): 269 Weight (Ounces): 11.2 Weight (Calculated Kilograms): 122.778029 Constitutional: AAO x 3, well-developed, well-nourished, other (obese) Respiratory: chest is bilaterally symmetric, lungs clear to auscultation, other (tenderness over lower sternum) Cardiovascular: regular rate-rhythm, S1 and S2, systolic murmur (soft KAVITA at card base) Gastrointestional: No tender; soft; No guarding, No rebound; audible bowel sounds Extremities: No clubbing, No cyanosis, No significant edema Neurologic/Psychiatric: alert, normal mood/affect, oriented x 3, grossly intact , power is 5/5 both on sides Skin: warm/dry; No cyanosis, No cool, No diaphoresis, No rash on exposed areas , No ulcerations on exposed areas Results/Procedures: Labs Laboratory Tests 06/29/18 10:55: Sodium Level 135, Potassium Level 4.6, Chloride Level 91L, Carbon Dioxide Level 34H, Anion Gap 10, Blood Urea Nitrogen 25H, Creatinine 2.34H, Estimat Glomerular Filtration Rate 21, BUN/Creatinine Ratio 11, Glucose Level 201H, Calcium Level 8.8, Corrected Calcium 9.8, Total Bilirubin 0.7, Aspartate Amino Transf (AST/SGOT) 26, Alanine Aminotransferase (ALT/SGPT) 11, Alkaline Phosphatase 57, Total Protein 6.5, Albumin 2.8L 06/29/18 11:14: Glucometer 210H 06/29/18 15:54: Glucometer 177H 06/29/18 20:32: Glucometer 236H 06/30/18 05:28: Glucometer 207H 06/30/18 05:30: White Blood Count 4.3, Red Blood Count 3.11L, Hemoglobin 9.2L, Hematocrit 29L, Mean Corpuscular Volume 94, Mean Corpuscular Hemoglobin 30, Mean Corpuscular Hemoglobin Concent 31L, Red Cell Distribution Width 17.2H, Platelet Count 137, Mean Platelet Volume 9.9, Neutrophils (%) (Auto) 80H, Lymphocytes (%) (Auto) 8L , Monocytes (%) (Auto) 12, Eosinophils (%) (Auto) 1, Basophils (%) (Auto) 0, Neutrophils # (Auto) 3.5, Lymphocytes # (Auto) 0.4L, Monocytes # (Auto) 0.5, Eosinophils # (Auto) 0.0, Basophils # (Auto) 0.0, Sodium Level 136, Potassium Level 4.9, Chloride Level 90L, Carbon Dioxide Level 34H, Anion Gap 12, Blood Urea Nitrogen 30H, Creatinine 2.30H, Estimat Glomerular Filtration Rate 22, BUN/ Creatinine Ratio 13, Glucose Level 181H, Calcium Level 8.8, Corrected Calcium 9.6, Magnesium Level 1.9, Total Bilirubin 0.5, Aspartate Amino Transf (AST/SGOT ) 22, Alanine Aminotransferase (ALT/SGPT) 10, Alkaline Phosphatase 63, Total Protein 6.7, Albumin 3.0L Microbiology 06/22/18 MRSA Screen - Final, Complete MRSA not isolated A/P: Assessment/Dx: Admission Diagnosis sinus tachycardia, PAF, Hypertension Coronary artery disease Acute on Chronic renal insufficiency Anemia, Shortness of breath Plan: Shortness of breath, on lasix. Gained 2 pounds, likely fluid. Check BNP. BNP on 06/23/2018 was 330. Acute on chronic kidney disease. Lasix held by the primary team. Sinus tachycardia, resolved. history of paroxysmal atrial fibrillation. currently in sinus rhythm. Borderline BP : low dose bb. Status post respiratory failure with pneumonia and UTI and sepsis. Improved, receiving physical therapy Debility and generalized weakness. Receiving physical therapy Anemia- worsening. Has been following with Dr. Field. Port placed. Coronary artery disease, history of CABG 4 done in February 2018. Clinically stable. Continue to monitor History of paroxysmal atrial fibrillation, unable to tolerate oral anticoagulation due to recurrent GI bleed. Moderate size left pericardial effusion, persistent since the bypass surgery. Maintained on Lasix, continue to monitor. Congestive heart failure, chronic left ventricular diastolic dysfunction, secondary to hypertension. Hypertension, controlled on current medication, continue to monitor History of hepatic cirrhosis, unknown etiology. Scheduled to see a fashion consultant sales as an outpatient History of esophageal paresis and gastritis. Followed and managed by primary care physician next History of GAVE History of ascites secondary to hepatic cirrhosis Status post pneumonia and UTI resulted in septic shock and encephalopathy Status post respiratory failure. Obesity, BMI 45 Thank you for your consultation. Please call me if you have any questions. Estela Jorge MD, FACP, FACC, FSCAI, FHRS, CCDS Interventional Cardiology Cardiac Electrophysiology Vascular Medicine and Endovascular Interventions Wei JORGE MD Jun 30, 2018 9:34 am
[2018-06-30] MEDS: TRIAMCINOLONE 0.1% CR (KENALOG) 15 GM TUBE TOP SCH ×2 (09:55→20:23)
--- NOTE | 2018-06-30 11:01 | Occupational Ther Daily Note ---
OT Current Status-Daily Note Subjective Pt. states that her left shoulder is still feeling sore. Pt. does not want pain medication. Appearance Pt. up in chair. Agrees to shower. Mental Status/Objective Patient Orientation: Person, Place, Time, Situation Therapy Code Descriptions/Definitions Functional [place] Measure: 0=Not Assessed/NA 4=Minimal Assistance 1=Total Assistance 5=Supervision or Setup 2=Maximal Assistance 6=Modified [place] 3=Moderate Assistance 7=Complete [place] Attachments: IV, Oxygen ADL-Treatment Therapy Code Descriptions/Definitions Functional [place] Measure: 0=Not Assessed/NA 4=Minimal Assistance 1=Total Assistance 5=Supervision or Setup 2=Maximal Assistance 6=Modified [place] 3=Moderate Assistance 7=Complete [place] Therapy Quality Codes: 6 Independent with activity with or without an assistive device 5 Patient requires set up or clean up by helper. Patient completes activity by themselves 4 Supervision or touching assist (CGA). [place] provide cues , steadying assist 3 The helper provides less than half the effort to complete the activity 2 The helper provides more than half the effort to complete the activity 1 Dependent. The helper does all the effort to complete an activity 7 Patient refused to complete or attempt activity 9 The patient did not perform the activity before the current illness or injury 88 Not attempted due to Medical conditions or safety concerns Grooming (FIM): 6 Oral Hygiene (QC): 6 Bathing (FIM): 6 Shower/Bathe Self (QC): 6 Upper Body (FIM): 6 Upper Body Dressing (QC): 6 Lower Body Dressing (FIM): 4 (Pt. requires min assist to don slipper socks with sock aide. Pt. is able to don underwear and pants with Mod I with AE.) Lower Body Dressing (QC): 4 On/Off Footwear (QC): 4 Toileting (FIM): 6 Toileting Hygiene (QC): 6 Transfers (B, C, W/C) (FIM): 6 Toilet/Commode Transfer (FIM): 6 Toilet Transfer (QC): 6 Shower Transfer(FIM): 6 Education OT Patient Education: Modified ADL techniques, Progress toward Goal/Update tx plan, Purpose of tx/functional activities, Reviewed precautions, Rehab process, Transfer techniques Teaching Recipient: Patient Teaching Methods: Demonstration, Discussion Response to Teaching: Verbalize Understanding, Return Demonstration OT Short Term Goals Short Term Goals Time Frame: Jun 25, 2018 Lower Body Dressing(FIM): 5 Toileting(FIM): 5 Transfers (B,C,W/C) (FIM): 4 Toilet/Commode Transfer(FIM): 5 1=Demonstrate adherence to instructed precautions during ADL tasks. 2=Patient will verbalize/demonstrate understanding of assistive devices/ modifications for ADL. 3=Patient will improve strength/tolerance for activity to enable patient to perform ADL's. OT Gin Clerk Goals Gin Clerk Goals Time Frame: Jul 09, 2018 Eating (FIM): 6 Eating (QC): 6 Groomin Oral Hygiene (QC): 6 Bathing(FIM): 6 Shower/Bathe Self (QC): 6 Upper Body Dressing(FIM): 6 Upper Body Dressing (QC): 6 Lower Body Dressing(FIM): 6 Lower Body Dressing (QC): 6 On/Off Footwear (QC): 6 Toileting(FIM): 6 Toileting Hygiene (QC): 6 Toilet/Commode Transfer(FIM): 6 Toilet/Commode Transfer (QC): 6 Shower Transfer(FIM): 5 Additional Goals: 1-Demonstrate ADL Tasks, 2-Verbalize Understanding, 3- ImproveStrength/Tamy 1=Demonstrate adherence to instructed precautions during ADL tasks. 2=Patient will verbalize/demonstrate understanding of assistive devices/ modifications for ADL. 3=Patient will improve strength/tolerance for activity to enable patient to perform ADL's. OT Education/Plan Problem List/Assessment Assessment: Decreased Activ Tolerance, Impaired I ADL's Pt demonstrates decreased activity tolerance, strength, mobility, and ADL functioning. Pt to benefit from skilled OT intervention for ADL training, transfers, strengthening, and home safety education to increase functional independence and allow safe discharge home. Discharge Recommendations Plan/Recommendations: Continue POC Therapy D/C Recommendations: Home w/ Family Support Equpiment Recommendations-D/C: Hip Kit Treatment Plan/Plan of Care Treatment,Training & Education: Yes Patient would benefit from OT for education, treatment and training to promote independence in ADL's, mobility, safety and/or upper extremity function for ADL' s. Plan of Care: ADL Retraining, Functional Mobility, Group Exercise/Act as Ind, UE Funct Exercise/Act Treatment Duration: Jul 09, 2018 Frequency: At least 5 of 7 days/Wk (IRF) Estimated Hrs Per Day: 1.5 hours per day Agreement: Yes Rehab Potential: Fair Time/GCodes Start Time: 09:15 Stop Time: 10:15 Total Time Billed (hr/min): 60 Billed Treatment Time 1, ADL x 4 SANDRA COMER OT Jun 30, 2018 11:01
[2018-06-30] MEDS: ACETAMINOPHEN 325 MG TABLET PO PRN (11:23)
--- NOTE | 2018-06-30 15:13 | NUR ---
Weekly team conference Discussed weekly team conference with patient and her family. Patient is agreeable to discharge tomorrow prior to her appointment at [facility] at 1340. Recommend [facility] RN, PT and OT. Choice form completed and signed. Addendum: 06/30/18 at 1551 by KATHERINE MARQUIS RN Patient reports her family will purchase a hip kit for her.
--- NOTE | 2018-06-30 15:21 | Pulmonary Progress Note ---
Subjective Time Seen by a Provider: :19 Subjective/Events-last exam Pt denies SOB or productive cough. Sepsis Event Evaluation Height, Weight, BMI Height: 5'4.00" Weight: 269lbs. 11.2oz. 122.552503ld; 45.0 BMI Method:Stated Exam Exam Vital Signs Date Time Temp Pulse Resp B/P (MAP) Pulse Ox O2 Delivery O2 Flow Rate FiO2 06/30/18 09:20 57 129/60 (83) 06/30/18 09:00 Nasal Cannula 2.00 06/30/18 06:00 97.0 68 20 131/64 (86) 95 Nasal Cannula 2.00 06/29/18 21:40 73 20 119/65 (83) 92 Nasal Cannula 2.00 06/29/18 21:00 Nasal Cannula 2.00 06/29/18 15:56 97.3 62 16 121/69 (86) 90 Nasal Cannula 2.00 I & O 06/30/18 07:00 Intake Total 1200 ml Output Total 700 ml Balance 500 ml Height & Weight Height: 5'4.00" Weight: 269lbs. 11.2oz. 122.718151uy; 45.0 BMI Method:Stated General Appearance: No Apparent Distress, WD/WN, Chronically ill, Obese HEENT: PERRL/EOMI, Normal ENT Inspection, Pharynx Normal Neck: Full Range of Motion, Normal Inspection, Non Tender, Supple, Carotid Bruit Respiratory: Chest Non Tender, Lungs Clear, Normal Breath Sounds, No Accessory Muscle Use, No Respiratory Distress Cardiovascular: Regular Rate, Rhythm, No Gallop, No JVD, No Murmur, Normal Peripheral Pulses Gastrointestinal: soft Extremity: Pedal Edema Neurologic/Psychiatric: Alert, Oriented x3, No Motor/Sensory Deficits, Normal Mood/Affect Skin: Normal Color, Warm/Dry Lymphatic: No Adenopathy Results Lab Laboratory Tests 06/29/18 05:25 06/29/18 10:55 06/30/18 05:30 Assessment/Plan Assessment/Plan Debility/myopathy secondary to extended hospital stay -Rehab Chronic respiratory failure including hypoxia -Oxygen - currently 2 liters -out patient PFT -CXR and labs reviewed. Left pleural effusion possibly secondary to ascites and diastolic CHF -Monitor -Lasix Chronic liver disease with Portal HTN with hx of ascites - Lasix Anemia transfusion dependent -monitor -Occult stools Gastric antral vascular ectasia -Dx at hypothyroid Afib- chronic CAD -Cardiology following DM II BRISEIDA IBRAHIM DO Jun 30, 2018 15:20
--- NOTE | 2018-06-30 15:38 | Therapy Group Daily Note ---
Therapy Daily Group Note Patient Education Topic Home Safety Exercises LE Seated Exercise, UE Exercise Other/Notes Pt participated in group therapy with 3 to 1 ratio. Goals of session are understanding home safety and leading UE/LE seated exercises. Pt ambulated from room to commons area with FWW, assist to manage O2. Group consisted of introductions (name, place born, favorite food). Pt introduced self appropriately and actively listened to peers. Pt was able to read and lead exercise which was written on card. Pt tolerated and was able to complete. Dice were rolled for UE AROM/strengthening for amount of reps to complete for exercises. Pt then attended to handout given for home safety education. Verbalized understanding of education and provided examples of home safety strategies. Memory activity initiated for next group-jordi ledbetter steak, trombone, trump. Pt met goals of session by participation and acknowledgement of topics. Pt is able to benefit from group by using exercises throughout therapy stay and at discharge and by using education to make effective decisions for home safety when discharged. After therapy, pt in restroom. Will pull call light when finished. RN notified. Start Time: 13:00 Stop Time: 14:15 Total Billed Treatment Time: 75 Total Billed Treatment 1 visit, GRP(75minutes) LAURA CARIAS OT Jun 30, 2018 15:38
[2018-06-30 19:00] VITALS: BP 135/70
[2018-06-30] MEDS: SENNA W/DOCUSATE (SENOKOT S) TABLET PO SCH (20:23)
[2018-07-01 05:16] VITALS: BP 135/70
[2018-07-01] MEDS: inSUlin ASPART (NovoLOG) 1 UNIT/0.01 ML (CHARGE PER UNIT) SC SCH (05:33)
[2018-07-01] MEDS: LEVOTHYROXINE 150 MCG (LEVOTHROID) TAB PO SCH (05:57)
[2018-07-01] MEDS: LEVOTHYROXINE 25 MCG (LEVOTHROID) TAB PO SCH (05:57)
[2018-07-01] MEDS: ONDANSETRON 8 MG (ZOFRAN) ORAL DISSOLVE TAB PO PRN (05:57)
[2018-07-01] MEDS ORDERED: MAGN400T6 PO (08:12)
[2018-07-01] MEDS ORDERED: DIGO125T18 PO (08:12)
[2018-07-01] MEDS ORDERED: LEVO100T PO (08:12)
[2018-07-01] MEDS ORDERED: METO-333 PO (08:12)
[2018-07-01] MEDS ORDERED: TR1C15 TOP (08:12)
[2018-07-01] MEDS ORDERED: TRAM50TA2 PO (08:12)
[2018-07-01] MEDS ORDERED: ONDA8TAB12 PO (08:12)
[2018-07-01] MEDS ORDERED: FURO-124 PO (08:13)
--- NOTE | 2018-07-01 08:14 | Discharge Summary ---
Diagnosis/Chief Complaint Date of Admission Jun 18, 2018 at 13:15 Date of Discharge Discharge Date: Jul 01, 2018 Discharge Diagnosis Critical illness myopathy Volume overload with anasarca Chronic GI bleed transfusion dependent Liver cirrhosis with portal hypertension Coronary artery bypass graft CAD COPD maintained on oxygen / Left shoulder pain Occasional hematochezia due to chronic GI bleed Acute on chronic renal insufficiency Not on anticoagulation or antiplatelet candidate due to severe GI bleeding since bleeding risk outweigh benefits Reason Hospital Visit CC: Critical illness myopathy HPI: This is a 62-year-old white female with a multitude of medical problems including transfusion dependent anemia managed by Dr. Field and hematology center, paroxysmal atrial fibrillation, CAD, hypertension, CHF, chronic kidney disease, previous bypass, hypothyroidism, and anxiety disorder who presents to the inpatient rehabilitation facility transferred from [facility] after transferred there due to critical illness and higher level of care for kidney failure on 06/01/18 and remained on a ventilator for 3 days and then worked on severe anasarca and volume overload. She was given aggressive diuresis which helped a great deal but she is still 20 pounds of water weight over so we will continue to diuresis her here with Lasix 80 mg daily along with potassium supplement. Cardiology and pulmonology and hematology have all been consulted for this patient. Patient reports bowel function has been normal and blood sugars have been running pretty low due to poor appetite and poor intake. She did require transfusion while up at [facility]. Her kidney function actually improved to within normal limits at the time of transfer and we will be working on getting her strong enough to return back to independent living at home. She is willing to put forth the effort for the requirements of 3 hours of physical therapies in order to improve enough to be discharged home. I reviewed medical chart, via [facility] medical chart, home meds, and all previous information in order to take care of this patient to the highest standards. Discharge Summary Discharge Physical Examination Allergies: Coded Allergies: [id number] Reductase Inhibitor (Verified Allergy, Intermediate, GI UPSET, N/V, 11/06/17) cefadroxil (Unverified Allergy, Mild, 01/01/17) Sulfa (Sulfonamide Antibiotics) (Verified Allergy, Unknown, 06/18/18) Vitals & I&Os Vital Signs Date Time Temp Pulse Resp B/P (MAP) Pulse Ox O2 Delivery O2 Flow Rate FiO2 07/01/18 13:04 68 20 128/70 93 Nasal Cannula 2.00 07/01/18 05:16 99.0 Hospital Course Patient had a lengthy hospital course in the inpatient rehabilitation facility although she was very motivated and per dissipate in all therapies and did improve an immense amount prior to discharge home. She did require multiple consultations including Dr. Haywood for hematology and transfusion-dependent anemia, Dr. Snow for COPD oxygen dependence and pleural effusion, for CAD and bypass surgery, and Dr. Caal for left shoulder pain requiring injection and Dr Holt for port placement due to poor venous access She did require packed red blood cell transfusion during her hospital stay and required frequent laboratory monitoring due to diuresis with acute on chronic renal failure. Chronic GI bleed gave rise to occasional hematochezia and melena which remained stable. She had an uneventful port placement due to poor venous access. She was not an antiplatelet or anticoagulation candidate due to severe chronic GI bleeding transfusion dependent and bleeding outweighed the risk. Patient was deemed stable for discharge after going to the hepatology appointment at [facility] in preparation for liver cirrhosis and portal hypertension evaluation in order to obtain the chronic GI bleed ablation to resolve that issue. Labs (last 24 hrs) Laboratory Tests 06/18/18 16:54: Glucometer 114H 06/18/18 20:30: Glucometer 140H 06/19/18 05:15: Glucometer 103 06/19/18 07:11: White Blood Count 5.3, Red Blood Count 2.96L, Hemoglobin 9.2L, Hematocrit 30L, Mean Corpuscular Volume 101H, Mean Corpuscular Hemoglobin 31, Mean Corpuscular Hemoglobin Concent 31L, Red Cell Distribution Width 15.6H, Platelet Count 172, Mean Platelet Volume 10.2, Neutrophils (%) (Auto) 58, Lymphocytes (%) (Auto) 20 , Monocytes (%) (Auto) 13H, Eosinophils (%) (Auto) 9, Basophils (%) (Auto) 1, Neutrophils # (Auto) 3.1, Lymphocytes # (Auto) 1.0, Monocytes # (Auto) 0.7, Eosinophils # (Auto) 0.5H, Basophils # (Auto) 0.0, Sodium Level 141, Potassium Level 3.7, Chloride Level 93L, Carbon Dioxide Level 35H, Anion Gap 13, Blood Urea Nitrogen 16, Creatinine 1.26, Estimat Glomerular Filtration Rate 43, BUN/ Creatinine Ratio 13, Glucose Level 110H, Calcium Level 9.3, Corrected Calcium 10.0, Ferritin 168.2, Total Bilirubin 0.7, Aspartate Amino Transf (AST/SGOT) 33 , Alanine Aminotransferase (ALT/SGPT) 13, Alkaline Phosphatase 65, Total Protein 7.0, Albumin 3.1L 06/19/18 11:58: Glucometer 139H 06/19/18 16:15: Glucometer 171H 06/19/18 21:05: Glucometer 194H 06/20/18 05:28: Glucometer 153H 06/20/18 10:21: Glucometer 114H 06/20/18 15:34: Glucometer 101 06/21/18 06:27: Glucometer 146H 06/21/18 06:30: White Blood Count 2.7L, Red Blood Count 2.44L, Hemoglobin 7.5L, Hematocrit 25L, Mean Corpuscular Volume 103H, Mean Corpuscular Hemoglobin 31, Mean Corpuscular Hemoglobin Concent 30L, Red Cell Distribution Width 15.1H, Platelet Count 116L, Mean Platelet Volume 10.0, Neutrophils (%) (Auto) 51, Lymphocytes (%) (Auto) 28 , Monocytes (%) (Auto) 11, Eosinophils (%) (Auto) 10, Basophils (%) (Auto) 0, Neutrophils # (Auto) 1.4L, Lymphocytes # (Auto) 0.7L, Monocytes # (Auto) 0.3, Eosinophils # (Auto) 0.3, Basophils # (Auto) 0.0, Sodium Level 140, Potassium Level 4.2, Chloride Level 94L, Carbon Dioxide Level 37H, Anion Gap 9, Blood Urea Nitrogen 18, Creatinine 1.63H, Estimat Glomerular Filtration Rate 32, BUN/ Creatinine Ratio 11, Glucose Level 138H, Calcium Level 8.5, Corrected Calcium 9.7, Total Bilirubin 0.5, Aspartate Amino Transf (AST/SGOT) 25, Alanine Aminotransferase (ALT/SGPT) 7, Alkaline Phosphatase 56, Total Protein 6.1L, Albumin 2.5L 06/21/18 10:52: Hemoglobin 8.3L, Hematocrit 28L, B-Type Natriuretic Peptide 300.7H 06/21/18 11:28: Glucometer 148H 06/21/18 16:53: Glucometer 155H 06/21/18 21:05: Glucometer 199H 06/22/18 06:01: Glucometer 171H 06/22/18 11:29: Glucometer 128H 06/22/18 16:46: Glucometer 116H 06/22/18 20:18: Glucometer 157H 06/22/18 21:40: Stool Occult Blood Immunoassay POSITIVEH 06/22/18 22:20: Hemoglobin 8.2L, Hematocrit 28L 06/23/18 06:15: Glucometer 209H 06/23/18 11:27: Glucometer 149H 06/23/18 11:47: White Blood Count 3.0L, Red Blood Count 2.67L, Hemoglobin 8.1L, Hematocrit 27L, Mean Corpuscular Volume 99, Mean Corpuscular Hemoglobin 30, Mean Corpuscular Hemoglobin Concent 31L, Red Cell Distribution Width 16.5H, Platelet Count 129L, Mean Platelet Volume 9.6, Neutrophils (%) (Auto) 58, Lymphocytes (%) (Auto) 19, Monocytes (%) (Auto) 14H, Eosinophils (%) (Auto) 8, Basophils (%) (Auto) 1, Neutrophils # (Auto) 1.7L, Lymphocytes # (Auto) 0.6L, Monocytes # (Auto) 0.4, Eosinophils # (Auto) 0.3, Basophils # (Auto) 0.0, Prothrombin Time 16.1H, INR Comment 1.3, Activated Partial Thromboplast Time 31, Sodium Level 137, Potassium Level 4.1, Chloride Level 93L, Carbon Dioxide Level 37H, Anion Gap 7, Blood Urea Nitrogen 20H, Creatinine 1.53H, Estimat Glomerular Filtration Rate 35 , BUN/Creatinine Ratio 13, Glucose Level 137H, Calcium Level 8.6, Corrected Calcium 9.6, Phosphorus Level 3.3, Magnesium Level 1.3L, Total Bilirubin 0.7, Aspartate Amino Transf (AST/SGOT) 26, Alanine Aminotransferase (ALT/SGPT) 8, Alkaline Phosphatase 58, B-Type Natriuretic Peptide 330.5H, Total Protein 6.1L, Albumin 2.7L, Thyroid Stimulating Hormone (TSH) 8.21H 06/23/18 16:33: Glucometer 213H 06/23/18 21:34: Glucometer 166H 06/24/18 05:48: Glucometer 142H 06/24/18 05:50: White Blood Count 2.5L, Red Blood Count 2.42L, Hemoglobin 7.4L, Hematocrit 24L, Mean Corpuscular Volume 100H, Mean Corpuscular Hemoglobin 31, Mean Corpuscular Hemoglobin Concent 31L, Red Cell Distribution Width 16.1H, Platelet Count 119L, Mean Platelet Volume 9.7, Neutrophils (%) (Auto) 51, Lymphocytes (%) (Auto) 28, Monocytes (%) (Auto) 13H, Eosinophils (%) (Auto) 8, Basophils (%) (Auto) 0, Neutrophils # (Auto) 1.3L, Lymphocytes # (Auto) 0.7L, Monocytes # (Auto) 0.3, Eosinophils # (Auto) 0.2, Basophils # (Auto) 0.0 06/24/18 11:44: Glucometer 135H 06/24/18 16:55: Glucometer 139H 06/24/18 21:41: Glucometer 166H 06/25/18 06:19: Glucometer 120H 06/25/18 10:27: Sodium Level 139, Potassium Level 4.2, Chloride Level 94L, Carbon Dioxide Level 36H, Anion Gap 9, Blood Urea Nitrogen 19H, Creatinine 1.44H, Estimat Glomerular Filtration Rate 37, BUN/Creatinine Ratio 13, Glucose Level 143H, Calcium Level 8.9 06/25/18 14:01: Glucometer 137H 06/25/18 18:17: Glucometer 181H 06/25/18 21:47: Glucometer 219H 06/26/18 04:32: Glucometer 140H 06/26/18 06:25: White Blood Count 2.7L, Red Blood Count 2.93L, Hemoglobin 8.8L, Hematocrit 28L, Mean Corpuscular Volume 95, Mean Corpuscular Hemoglobin 30, Mean Corpuscular Hemoglobin Concent 32, Red Cell Distribution Width 18.6H, Platelet Count 117L, Mean Platelet Volume 9.7, Neutrophils (%) (Auto) 56, Lymphocytes (%) (Auto) 22, Monocytes (%) (Auto) 12, Eosinophils (%) (Auto) 9, Basophils (%) (Auto) 1, Neutrophils # (Auto) 1.5L, Lymphocytes # (Auto) 0.6L, Monocytes # (Auto) 0.3, Eosinophils # (Auto) 0.2, Basophils # (Auto) 0.0, Sodium Level 139, Potassium Level 4.1, Chloride Level 93L, Carbon Dioxide Level 35H, Anion Gap 11, Blood Urea Nitrogen 19H, Creatinine 1.42H, Estimat Glomerular Filtration Rate 38, BUN/ Creatinine Ratio 13, Glucose Level 160H, Calcium Level 8.6, Corrected Calcium 9.8, Magnesium Level 1.3L, Total Bilirubin 0.7, Aspartate Amino Transf (AST/SGOT ) 25, Alanine Aminotransferase (ALT/SGPT) 8, Alkaline Phosphatase 58, Total Protein 5.7L, Albumin 2.5L 06/26/18 10:57: Glucometer 162H 06/26/18 17:21: Glucometer 158H 06/26/18 20:22: Glucometer 155H 06/27/18 04:27: Glucometer 128H 06/27/18 11:23: Glucometer 176H 06/27/18 15:45: Glucometer 142H 06/27/18 21:31: Glucometer 186H 06/28/18 05:57: Glucometer 146H 06/28/18 06:00: White Blood Count 3.9L, Red Blood Count 3.01L, Hemoglobin 8.9L, Hematocrit 29L, Mean Corpuscular Volume 96, Mean Corpuscular Hemoglobin 30, Mean Corpuscular Hemoglobin Concent 31L, Red Cell Distribution Width 17.6H, Platelet Count 134, Mean Platelet Volume 9.8, Neutrophils (%) (Auto) 59, Lymphocytes (%) (Auto) 20, Monocytes (%) (Auto) 13H, Eosinophils (%) (Auto) 7, Basophils (%) (Auto) 1, Neutrophils # (Auto) 2.3, Lymphocytes # (Auto) 0.8L, Monocytes # (Auto) 0.5, Eosinophils # (Auto) 0.3, Basophils # (Auto) 0.0, Sodium Level 138, Potassium Level 4.4, Chloride Level 92L, Carbon Dioxide Level 36H, Anion Gap 10, Blood Urea Nitrogen 19H, Creatinine 1.96H, Estimat Glomerular Filtration Rate 26, BUN/ Creatinine Ratio 10, Glucose Level 137H, Calcium Level 9.0, Corrected Calcium 10.0, Magnesium Level 1.5L, Total Bilirubin 0.9, Aspartate Amino Transf (AST/ SGOT) 28, Alanine Aminotransferase (ALT/SGPT) 9, Alkaline Phosphatase 60, Total Protein 6.2L, Albumin 2.8L 06/28/18 10:59: Glucometer 128H 06/28/18 15:54: Glucometer 139H 06/28/18 20:32: Glucometer 266H 06/29/18 05:22: Glucometer 283H 06/29/18 05:25: White Blood Count 3.1L, Red Blood Count 3.16L, Hemoglobin 9.2L, Hematocrit 30L, Mean Corpuscular Volume 94, Mean Corpuscular Hemoglobin 29, Mean Corpuscular Hemoglobin Concent 31L, Red Cell Distribution Width 16.7H, Platelet Count 124L, Mean Platelet Volume 10.0, Neutrophils (%) (Auto) 79H, Lymphocytes (%) (Auto) 14 , Monocytes (%) (Auto) 7, Eosinophils (%) (Auto) 0, Basophils (%) (Auto) 0, Neutrophils # (Auto) 2.4, Lymphocytes # (Auto) 0.4L, Monocytes # (Auto) 0.2, Eosinophils # (Auto) 0.0, Basophils # (Auto) 0.0 06/29/18 10:55: Sodium Level 135, Potassium Level 4.6, Chloride Level 91L, Carbon Dioxide Level 34H, Anion Gap 10, Blood Urea Nitrogen 25H, Creatinine 2.34H, Estimat Glomerular Filtration Rate 21, BUN/Creatinine Ratio 11, Glucose Level 201H, Calcium Level 8.8, Corrected Calcium 9.8, Total Bilirubin 0.7, Aspartate Amino Transf (AST/SGOT) 26, Alanine Aminotransferase (ALT/SGPT) 11, Alkaline Phosphatase 57, Total Protein 6.5, Albumin 2.8L 06/29/18 11:14: Glucometer 210H 06/29/18 15:54: Glucometer 177H 06/29/18 20:32: Glucometer 236H 06/30/18 05:28: Glucometer 207H 06/30/18 05:30: White Blood Count 4.3, Red Blood Count 3.11L, Hemoglobin 9.2L, Hematocrit 29L, Mean Corpuscular Volume 94, Mean Corpuscular Hemoglobin 30, Mean Corpuscular Hemoglobin Concent 31L, Red Cell Distribution Width 17.2H, Platelet Count 137, Mean Platelet Volume 9.9, Neutrophils (%) (Auto) 80H, Lymphocytes (%) (Auto) 8L , Monocytes (%) (Auto) 12, Eosinophils (%) (Auto) 1, Basophils (%) (Auto) 0, Neutrophils # (Auto) 3.5, Lymphocytes # (Auto) 0.4L, Monocytes # (Auto) 0.5, Eosinophils # (Auto) 0.0, Basophils # (Auto) 0.0, Sodium Level 136, Potassium Level 4.9, Chloride Level 90L, Carbon Dioxide Level 34H, Anion Gap 12, Blood Urea Nitrogen 30H, Creatinine 2.30H, Estimat Glomerular Filtration Rate 22, BUN/ Creatinine Ratio 13, Glucose Level 181H, Calcium Level 8.8, Corrected Calcium 9.6, Magnesium Level 1.9, Total Bilirubin 0.5, Aspartate Amino Transf (AST/SGOT ) 22, Alanine Aminotransferase (ALT/SGPT) 10, Alkaline Phosphatase 63, B-Type Natriuretic Peptide 384.4H, Total Protein 6.7, Albumin 3.0L 06/30/18 11:21: Glucometer 162H 06/30/18 16:15: Glucometer 164H 06/30/18 20:24: Glucometer 218H 07/01/18 04:34: Glucometer 146H 07/02/18 11:18: Lab Scanned Report Transfusion Reaction Form Microbiology 06/22/18 MRSA Screen - Final, Complete MRSA not isolated Pending Labs Microbiology Date/Time Source Procedure Growth Status 06/22/18 13:25 Nasal MRSA Screen - Final MRSA not isolated Complete Laboratory Tests 06/18/18 16:54: Glucometer 114 06/18/18 20:30: Glucometer 140 06/19/18 05:15: Glucometer 103 06/19/18 07:11: White Blood Count 5.3, Red Blood Count 2.96, Hemoglobin 9.2, Hematocrit 30, Mean Corpuscular Volume 101, Mean Corpuscular Hemoglobin 31, Mean Corpuscular Hemoglobin Concent 31, Red Cell Distribution Width 15.6, Platelet Count 172, Mean Platelet Volume 10.2, Neutrophils (%) (Auto) 58, Lymphocytes (%) (Auto) 20 , Monocytes (%) (Auto) 13, Eosinophils (%) (Auto) 9, Basophils (%) (Auto) 1, Neutrophils # (Auto) 3.1, Lymphocytes # (Auto) 1.0, Monocytes # (Auto) 0.7, Eosinophils # (Auto) 0.5, Basophils # (Auto) 0.0, Sodium Level 141, Potassium Level 3.7, Chloride Level 93, Carbon Dioxide Level 35, Anion Gap 13, Blood Urea Nitrogen 16, Creatinine 1.26, Estimat Glomerular Filtration Rate 43, BUN/ Creatinine Ratio 13, Glucose Level 110, Calcium Level 9.3, Corrected Calcium 10.0, Ferritin 168.2, Total Bilirubin 0.7, Aspartate Amino Transf (AST/SGOT) 33 , Alanine Aminotransferase (ALT/SGPT) 13, Alkaline Phosphatase 65, Total Protein 7.0, Albumin 3.1 06/19/18 11:58: Glucometer 139 06/19/18 16:15: Glucometer 171 06/19/18 21:05: Glucometer 194 06/20/18 05:28: Glucometer 153 06/20/18 10:21: Glucometer 114 06/20/18 15:34: Glucometer 101 06/21/18 06:27: Glucometer 146 06/21/18 06:30: White Blood Count 2.7, Red Blood Count 2.44, Hemoglobin 7.5, Hematocrit 25, Mean Corpuscular Volume 103, Mean Corpuscular Hemoglobin 31, Mean Corpuscular Hemoglobin Concent 30, Red Cell Distribution Width 15.1, Platelet Count 116, Mean Platelet Volume 10.0, Neutrophils (%) (Auto) 51, Lymphocytes (%) (Auto) 28 , Monocytes (%) (Auto) 11, Eosinophils (%) (Auto) 10, Basophils (%) (Auto) 0, Neutrophils # (Auto) 1.4, Lymphocytes # (Auto) 0.7, Monocytes # (Auto) 0.3, Eosinophils # (Auto) 0.3, Basophils # (Auto) 0.0, Sodium Level 140, Potassium Level 4.2, Chloride Level 94, Carbon Dioxide Level 37, Anion Gap 9, Blood Urea Nitrogen 18, Creatinine 1.63, Estimat Glomerular Filtration Rate 32, BUN/ Creatinine Ratio 11, Glucose Level 138, Calcium Level 8.5, Corrected Calcium 9.7 , Total Bilirubin 0.5, Aspartate Amino Transf (AST/SGOT) 25, Alanine Aminotransferase (ALT/SGPT) 7, Alkaline Phosphatase 56, Total Protein 6.1, Albumin 2.5 06/21/18 10:52: Hemoglobin 8.3, Hematocrit 28, B-Type Natriuretic Peptide 300.7 06/21/18 11:28: Glucometer 148 06/21/18 16:53: Glucometer 155 06/21/18 21:05: Glucometer 199 06/22/18 06:01: Glucometer 171 06/22/18 11:29: Glucometer 128 06/22/18 16:46: Glucometer 116 06/22/18 20:18: Glucometer 157 06/22/18 21:40: Stool Occult Blood Immunoassay POSITIVE 06/22/18 22:20: Hemoglobin 8.2, Hematocrit 28 06/23/18 06:15: Glucometer 209 06/23/18 11:27: Glucometer 149 06/23/18 11:47: White Blood Count 3.0, Red Blood Count 2.67, Hemoglobin 8.1, Hematocrit 27, Mean Corpuscular Volume 99, Mean Corpuscular Hemoglobin 30, Mean Corpuscular Hemoglobin Concent 31, Red Cell Distribution Width 16.5, Platelet Count 129, Mean Platelet Volume 9.6, Neutrophils (%) (Auto) 58, Lymphocytes (%) (Auto) 19, Monocytes (%) (Auto) 14, Eosinophils (%) (Auto) 8, Basophils (%) (Auto) 1, Neutrophils # (Auto) 1.7, Lymphocytes # (Auto) 0.6, Monocytes # (Auto) 0.4, Eosinophils # (Auto) 0.3, Basophils # (Auto) 0.0, Prothrombin Time 16.1, INR Comment 1.3, Activated Partial Thromboplast Time 31, Sodium Level 137, Potassium Level 4.1, Chloride Level 93, Carbon Dioxide Level 37, Anion Gap 7, Blood Urea Nitrogen 20, Creatinine 1.53, Estimat Glomerular Filtration Rate 35, BUN/Creatinine Ratio 13, Glucose Level 137, Calcium Level 8.6, Corrected Calcium 9.6, Phosphorus Level 3.3, Magnesium Level 1.3, Total Bilirubin 0.7, Aspartate Amino Transf (AST/SGOT) 26, Alanine Aminotransferase (ALT/SGPT) 8, Alkaline Phosphatase 58, B-Type Natriuretic Peptide 330.5, Total Protein 6.1, Albumin 2.7, Thyroid Stimulating Hormone (TSH) 8.21 06/23/18 16:33: Glucometer 213 06/23/18 21:34: Glucometer 166 06/24/18 05:48: Glucometer 142 06/24/18 05:50: White Blood Count 2.5, Red Blood Count 2.42, Hemoglobin 7.4, Hematocrit 24, Mean Corpuscular Volume 100, Mean Corpuscular Hemoglobin 31, Mean Corpuscular Hemoglobin Concent 31, Red Cell Distribution Width 16.1, Platelet Count 119, Mean Platelet Volume 9.7, Neutrophils (%) (Auto) 51, Lymphocytes (%) (Auto) 28, Monocytes (%) (Auto) 13, Eosinophils (%) (Auto) 8, Basophils (%) (Auto) 0, Neutrophils # (Auto) 1.3, Lymphocytes # (Auto) 0.7, Monocytes # (Auto) 0.3, Eosinophils # (Auto) 0.2, Basophils # (Auto) 0.0 06/24/18 11:44: Glucometer 135 06/24/18 16:55: Glucometer 139 06/24/18 21:41: Glucometer 166 06/25/18 06:19: Glucometer 120 06/25/18 10:27: Sodium Level 139, Potassium Level 4.2, Chloride Level 94, Carbon Dioxide Level 36, Anion Gap 9, Blood Urea Nitrogen 19, Creatinine 1.44, Estimat Glomerular Filtration Rate 37, BUN/Creatinine Ratio 13, Glucose Level 143, Calcium Level 8.9 06/25/18 14:01: Glucometer 137 06/25/18 18:17: Glucometer 181 06/25/18 21:47: Glucometer 219 06/26/18 04:32: Glucometer 140 06/26/18 06:25: White Blood Count 2.7, Red Blood Count 2.93, Hemoglobin 8.8, Hematocrit 28, Mean Corpuscular Volume 95, Mean Corpuscular Hemoglobin 30, Mean Corpuscular Hemoglobin Concent 32, Red Cell Distribution Width 18.6, Platelet Count 117, Mean Platelet Volume 9.7, Neutrophils (%) (Auto) 56, Lymphocytes (%) (Auto) 22, Monocytes (%) (Auto) 12, Eosinophils (%) (Auto) 9, Basophils (%) (Auto) 1, Neutrophils # (Auto) 1.5, Lymphocytes # (Auto) 0.6, Monocytes # (Auto) 0.3, Eosinophils # (Auto) 0.2, Basophils # (Auto) 0.0, Sodium Level 139, Potassium Level 4.1, Chloride Level 93, Carbon Dioxide Level 35, Anion Gap 11, Blood Urea Nitrogen 19, Creatinine 1.42, Estimat Glomerular Filtration Rate 38, BUN/ Creatinine Ratio 13, Glucose Level 160, Calcium Level 8.6, Corrected Calcium 9.8 , Magnesium Level 1.3, Total Bilirubin 0.7, Aspartate Amino Transf (AST/SGOT) 25 , Alanine Aminotransferase (ALT/SGPT) 8, Alkaline Phosphatase 58, Total Protein 5.7, Albumin 2.5 06/26/18 10:57: Glucometer 162 06/26/18 17:21: Glucometer 158 06/26/18 20:22: Glucometer 155 06/27/18 04:27: Glucometer 128 06/27/18 11:23: Glucometer 176 06/27/18 15:45: Glucometer 142 06/27/18 21:31: Glucometer 186 06/28/18 05:57: Glucometer 146 06/28/18 06:00: White Blood Count 3.9, Red Blood Count 3.01, Hemoglobin 8.9, Hematocrit 29, Mean Corpuscular Volume 96, Mean Corpuscular Hemoglobin 30, Mean Corpuscular Hemoglobin Concent 31, Red Cell Distribution Width 17.6, Platelet Count 134, Mean Platelet Volume 9.8, Neutrophils (%) (Auto) 59, Lymphocytes (%) (Auto) 20, Monocytes (%) (Auto) 13, Eosinophils (%) (Auto) 7, Basophils (%) (Auto) 1, Neutrophils # (Auto) 2.3, Lymphocytes # (Auto) 0.8, Monocytes # (Auto) 0.5, Eosinophils # (Auto) 0.3, Basophils # (Auto) 0.0, Sodium Level 138, Potassium Level 4.4, Chloride Level 92, Carbon Dioxide Level 36, Anion Gap 10, Blood Urea Nitrogen 19, Creatinine 1.96, Estimat Glomerular Filtration Rate 26, BUN/ Creatinine Ratio 10, Glucose Level 137, Calcium Level 9.0, Corrected Calcium 10.0, Magnesium Level 1.5, Total Bilirubin 0.9, Aspartate Amino Transf (AST/SGOT ) 28, Alanine Aminotransferase (ALT/SGPT) 9, Alkaline Phosphatase 60, Total Protein 6.2, Albumin 2.8 06/28/18 10:59: Glucometer 128 06/28/18 15:54: Glucometer 139 06/28/18 20:32: Glucometer 266 06/29/18 05:22: Glucometer 283 06/29/18 05:25: White Blood Count 3.1, Red Blood Count 3.16, Hemoglobin 9.2, Hematocrit 30, Mean Corpuscular Volume 94, Mean Corpuscular Hemoglobin 29, Mean Corpuscular Hemoglobin Concent 31, Red Cell Distribution Width 16.7, Platelet Count 124, Mean Platelet Volume 10.0, Neutrophils (%) (Auto) 79, Lymphocytes (%) (Auto) 14 , Monocytes (%) (Auto) 7, Eosinophils (%) (Auto) 0, Basophils (%) (Auto) 0, Neutrophils # (Auto) 2.4, Lymphocytes # (Auto) 0.4, Monocytes # (Auto) 0.2, Eosinophils # (Auto) 0.0, Basophils # (Auto) 0.0 06/29/18 10:55: Sodium Level 135, Potassium Level 4.6, Chloride Level 91, Carbon Dioxide Level 34, Anion Gap 10, Blood Urea Nitrogen 25, Creatinine 2.34, Estimat Glomerular Filtration Rate 21, BUN/Creatinine Ratio 11, Glucose Level 201, Calcium Level 8.8, Corrected Calcium 9.8, Total Bilirubin 0.7, Aspartate Amino Transf (AST/ SGOT) 26, Alanine Aminotransferase (ALT/SGPT) 11, Alkaline Phosphatase 57, Total Protein 6.5, Albumin 2.8 06/29/18 11:14: Glucometer 210 06/29/18 15:54: Glucometer 177 06/29/18 20:32: Glucometer 236 06/30/18 05:28: Glucometer 207 06/30/18 05:30: White Blood Count 4.3, Red Blood Count 3.11, Hemoglobin 9.2, Hematocrit 29, Mean Corpuscular Volume 94, Mean Corpuscular Hemoglobin 30, Mean Corpuscular Hemoglobin Concent 31, Red Cell Distribution Width 17.2, Platelet Count 137, Mean Platelet Volume 9.9, Neutrophils (%) (Auto) 80, Lymphocytes (%) (Auto) 8, Monocytes (%) (Auto) 12, Eosinophils (%) (Auto) 1, Basophils (%) (Auto) 0, Neutrophils # (Auto) 3.5, Lymphocytes # (Auto) 0.4, Monocytes # (Auto) 0.5, Eosinophils # (Auto) 0.0, Basophils # (Auto) 0.0, Sodium Level 136, Potassium Level 4.9, Chloride Level 90, Carbon Dioxide Level 34, Anion Gap 12, Blood Urea Nitrogen 30, Creatinine 2.30, Estimat Glomerular Filtration Rate 22, BUN/ Creatinine Ratio 13, Glucose Level 181, Calcium Level 8.8, Corrected Calcium 9.6 , Magnesium Level 1.9, Total Bilirubin 0.5, Aspartate Amino Transf (AST/SGOT) 22 , Alanine Aminotransferase (ALT/SGPT) 10, Alkaline Phosphatase 63, B-Type Natriuretic Peptide 384.4, Total Protein 6.7, Albumin 3.0 06/30/18 11:21: Glucometer 162 06/30/18 16:15: Glucometer 164 06/30/18 20:24: Glucometer 218 07/01/18 04:34: Glucometer 146 07/02/18 11:18: Lab Scanned Report Transfusion Reaction Form Discharge Home Medications: Active Scripts Active Lasix (Furosemide) 40 Mg Tablet 40 Mg PO Q48H Triamcinolone Acetonide 0.1% Cream (Triamcinolone Acet) 15 Gm Cr 0 Gm TOP BID Synthroid (Levothyroxine Sodium) 100 Mcg Tablet 200 Mcg PO Q48H Magnesium Oxide 400 Mg Tablet 400 Mg PO BIDPC Metoprolol Tartrate 25 Mg Tablet 25 Mg PO BID Digox (Digoxin) 125 Mcg Tablet 0.125 Mg PO DAILY Tramadol HCl 50 Mg Tablet 50 Mg PO TID PRN Ondansetron HCl 8 Mg Tablet 8 Mg PO Q8H PRN Reported Tylenol (Acetaminophen) 325 Mg Tablet 650 Mg PO Q6H PRN Senna S Tablet (Sennosides/Docusate Sodium) 1 Each Tablet 1 Tab PO HS Nitrostat (Nitroglycerin) 0.4 Mg Tab.subl 0.4 Mg SL UD PRN Novolin N (Insulin NPH Human Isophane) 100 Unit/1 Ml Vial 14 Unit SQ DAILY Novolog Flexpen (Insulin Aspart) 300 Units/3 Ml Solution 4 Units SQ TIDAC Benadryl (Diphenhydramine HCl) 25 Mg Capsule 25 Mg PO Q6H PRN Zyrtec (Cetirizine HCl) 10 Mg Tablet 10 Mg PO DAILY Tizanidine HCl 4 Mg Tablet 4 Mg PO TID PRN Potassium Chloride 20 Meq Tablet.er 20 Meq PO DAILY Folic Acid 1 Mg Tablet 1 Mg PO DAILY Omeprazole 40 Mg Capsule.dr 40 Mg PO BID Instructions to patient/family Please see electronic discharge instructions given to patient. 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 (3) Atrial fibrillation Status: Chronic Qualifiers: Qualified Codes: I48.0 - Paroxysmal atrial fibrillation (4) Hypothyroidism Status: Chronic Qualifiers: Qualified Codes: E03.9 - Hypothyroidism, unspecified (5) Coronary artery disease Status: Chronic Qualifiers: Qualified Codes: I25.10 - Atherosclerotic heart disease of [place] coronary artery without angina pectoris (6) Hypertension Status: Chronic Qualifiers: Qualified Codes: I10 - Essential (primary) hypertension (7) GI bleeding Status: Chronic Qualifiers: Qualified Codes: K31.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 (8) Transfusion-dependent anemia Status: Chronic (9) Type 2 diabetes mellitus with hyperglycemia Status: Chronic Qualifiers: Qualified Codes: E11.65 - Type 2 diabetes mellitus with hyperglycemia; Z79.4 - superintendent terminal (current) use of insulin (10) Oxygen dependent Status: Chronic (11) Loss of weight Status: Acute (12) Hypoxia Status: Chronic (13) CKD (chronic kidney disease) Status: Chronic Qualifiers: Qualified Codes: N18.3 - Chronic kidney disease, stage 3 (moderate) (14) Portal hypertension Status: Chronic (15) Edema Status: Acute Qualifiers: Qualified Codes: R60.1 - Generalized edema (16) Port-A-Cath in place Status: Acute (17) Poor venous access Status: Acute (18) Left shoulder pain Qualifiers: Qualified Codes: M25.512 - Pain in left shoulder (19) Hx of CABG Status: Chronic (20) B12 deficiency Status: Chronic (21) Contraindication to anticoagulation therapy Status: Chronic (22) Contraindication to antiplatelet therapy Status: Chronic (23) Venous stasis dermatitis Status: Acute Qualifiers: Qualified Codes: I87.2 - Venous insufficiency (chronic) (peripheral) (24) Neutropenia Status: Chronic Qualifiers: Qualified Codes: D70.9 - Neutropenia, unspecified (25) Cirrhosis Qualifiers: Qualified Codes: K74.60 - Unspecified cirrhosis of liver; R18.8 - Other ascites (26) Portal hypertension Status: Chronic (27) Renal insufficiency Status: Acute Clinical Quality Measures DVT/VTE Risk/Contraindication: Risk Factor Score Per Nursin RFS Level Per Nursing on Admit: 4+=Very High MICHELLE GARCIA DO Jul 01, 2018 08:14
--- NOTE | 2018-07-01 08:30 | Therapy Team Discharge Summary ---
Therapy Discharge Summary Discharge Recommendations Date of Discharge Therapy D/C Recommendations: Home w/ Family Support Physical Therapy Patient came to rehab with sepsis/resp failure. Upon evaluation patient performed bed mobility with SBA, supine to sit with mod assist, sit to supine with SBA, sit to stand with CGA/Luis, transfers CGA, car transfer min assist, ambulated 15' with a rolling walker with CGA, dependent with wheelchair mobility. Patient has been performing bed mobility and transfer training, balance and endurance training, functional strengthening, stair training, gait training, and education. Patient has made good progress and has met all of her terminal computer operator goals. Now, patient performs bed mobility and transfers with mod I except for car transfer which is mod assist, ambulates 150' with SBA using a rolling walker (including 50' with at least 2 turns of 90 degrees and 10' over an uneven surface), and can go up and down 4 steps using a rolling walker with SBA. Patient is discharging from this facility today and will be discharged from PT at this time. Occupational Therapy Decreased Activ Tolerance, Impaired I ADL's PT Bath Mix Operator Goals Detention Goals PT Bath Mix Operator Goals Time Frame: Jul 09, 2018 Transfers (B,C,W/C) (FIM): 5 Roll Left to Right (QC): 4 Sit to Lying (QC): 4 Lying-Sitting on Side/Bed(QC): 4 Sit to Stand (QC): 4 Chair/Fle-og-Lxbgx Xfer(QC): 4 Car Transfer (QC): 4 Gait (FIM): 2 Distance: 50' Walk 10 feet (QC): 4 Walk 10ft-Uneven Surface(QC): 4 Walk 50ft with 2 Turns (QC): 4 Gait Level of Assist: 5 Gait Assistive Device: FWW Stairs (FIM): 1 # of Steps: 1 1 Step (curb) (QC): 4 Stairs Level Of Assist: 4 OT Detention Goals Bath Mix Operator Goals Time Frame: Jul 09, 2018 Eating (FIM): 6 Eating (QC): 6 Oral Hygiene (QC): 6 Grooming(FIM): 6 Bathing(FIM): 6 Shower/Bathe Self (QC): 6 Upper Body Dressing(FIM): 6 Upper Body Dressing (QC): 6 Lower Body Dressing(FIM): 6 Lower Body Dressing (QC): 6 On/Off Footwear (QC): 6 Toileting(FIM): 6 Toileting Hygiene (QC): 6 Toilet/Commode Transfer(FIM): 6 Toilet/Commode Transfer (QC): 6 Shower Transfer(FIM): 5 Additional Goals: 1-Demonstrate ADL Tasks, 2-Verbalize Understanding, 3- ImproveStrength/Tamy 1=Demonstrate adherence to instructed precautions during ADL tasks. 2=Patient will verbalize/demonstrate understanding of assistive devices/ modifications for ADL. 3=Patient will improve strength/tolerance for activity to enable patient to perform ADL's. Speech Bath Mix Operator Goals Bath Mix Operator Goals Patient will increase safety and independence as a result of skilled therapy in order to return home. LEIGHTON HOUSER PT Jul 01, 2018 08:30
--- NOTE | 2018-07-01 08:34 | D/C HH Face to Face Order ---
D/C Face to Face Orders Instructions for Patient Via [facility], Patient Instructions/FollowUp: Dr Wilson 07/06/18 at 1:20pm Physician to follow Patient: Dr Wilson Discharge Diet for Home: ADA Diet, Low Sodium Diet Patient Problems: Critical illness myopathy Chronic GI bleed Transfusion dependent anemia Cirrhosis CHF Patient Data-Allergies,Ht & Wt Patient Allergies: Coded Allergies: Nyzonjx-Ase-Guf Reductase Inhibitor (Verified Allergy, Intermediate, GI UPSET, N/V, 11/06/17) cefadroxil (Unverified Allergy, Mild, 01/01/17) Sulfa (Sulfonamide Antibiotics) (Verified Allergy, Unknown, 06/18/18) Height (Feet): 5 Height (Inches): 4.00 Weight (Pounds): 270 Weight (Ounces): 0.2 Home Health Need/Face to Face Date of Face to Face: Jul 01, 2018 Clinical Findings: Generalized weakness and fatigue, Muscle weakness, Shortness of breath, Unsteady gait I have seen Pt [id number]: Yes Discharged To: Home Diagnosis/Conditions: Critical illness myopathy Chronic GI bleed Transfusion dependent anemia Cirrhosis CHF Patient is Homebound due to: Hallie fall risk due to instabilty, Muscle weakness , Shortness of breath/distress Homebound Status Due to the above stated illness, injury or surgical procedure (medical condition or diagnosis) and associated clinical findings, the patient is homebound because of his/her inability to leave home except with aid of a supportive device and/or person AND leaving the home requires a considerable and taxing effort or is medically contraindicated. Pt req the following assistanc: Walker Home Health Nursing Orders Home Health Services Order: Nursing Services, Airplane Tube Builder-Evaluate & Treat, Physical Therapy-Evaluate & Treat Home Health Infusion Therapy Line Start Date: Jun 22, 2018 Line Start Time: 1451 Line Type: Peripheral IV Site Location: Wrist Certify Stmt I certify that this patient is under my care and that I, a nurse practitioner or a physician; a child nutrition assistant working with me, had a face to face encounter that - meets the physician face to face encounter requirements with this patient as dated. MICHELLE GARCIA DO Jul 01, 2018 08:34
[2018-07-01] MEDS: FOLIC ACID 1 MG TAB PO SCH (08:35)
--- NOTE | 2018-07-01 08:35 | Therapy Team Discharge Summary ---
Therapy Discharge Summary Discharge Recommendations Date of Discharge 07-01-18 Therapy D/C Recommendations: Home w/ Family Support, Occupational Therapy Home Care Occupational Therapy Pt. seen by occupational therapy to increase overall strength and independence with daily tasks. Pt. has met most goals, with difficulty using sock aide and donning bra. Pt. has had left shoulder pain that has been addressed with cortisone shot and orthopedic consult. All needs have been met for pt. to discharge home with family support. Recommend hip kit and occupational therapy home care. Decreased Activ Tolerance, Impaired I ADL's PT Cash Reconciliation Specialist Goals Senior Care Goals PT Senior Care Goals Time Frame: Jul 09, 2018 Transfers (B,C,W/C) (FIM): 5 Roll Left to Right (QC): 4 Sit to Lying (QC): 4 Lying-Sitting on Side/Bed(QC): 4 Sit to Stand (QC): 4 Chair/Fjp-vo-Vzgbb Xfer(QC): 4 Car Transfer (QC): 4 Gait (FIM): 2 Distance: 50' Walk 10 feet (QC): 4 Walk 10ft-Uneven Surface(QC): 4 Walk 50ft with 2 Turns (QC): 4 Gait Level of Assist: 5 Gait Assistive Device: FWW Stairs (FIM): 1 # of Steps: 1 1 Step (curb) (QC): 4 Stairs Level Of Assist: 4 OT Senior Care Goals Cash Reconciliation Specialist Goals Time Frame: Jul 09, 2018 Eating (FIM): 6 (met) Eating (QC): 6 (met) Oral Hygiene (QC): 6 (met) Grooming(FIM): 6 (met) Bathing(FIM): 6 (met) Shower/Bathe Self (QC): 6 (met) Upper Body Dressing(FIM): 6 (not met) Upper Body Dressing (QC): 6 (not met) Lower Body Dressing(FIM): 6 (not met) Lower Body Dressing (QC): 6 (not met) On/Off Footwear (QC): 6 (not met) Toileting(FIM): 6 (met) Toileting Hygiene (QC): 6 (met) Toilet/Commode Transfer(FIM): 6 (met) Toilet/Commode Transfer (QC): 6 (met) Shower Transfer(FIM): 5 (met) Additional Goals: 1-Demonstrate ADL Tasks, 2-Verbalize Understanding, 3- ImproveStrength/Tamy 1=Demonstrate adherence to instructed precautions during ADL tasks. 2=Patient will verbalize/demonstrate understanding of assistive devices/ modifications for ADL. 3=Patient will improve strength/tolerance for activity to enable patient to perform ADL's. Speech Cash Reconciliation Specialist Goals Cash Reconciliation Specialist Goals Patient will increase safety and independence as a result of skilled therapy in order to return home. SANDRA COMER OT Jul 01, 2018 08:35
[2018-07-01] MEDS: MAGNESIUM OXIDE (MAG-OX)400 MG TAB PO SCH (08:36)
[2018-07-01] MEDS: LORATADINE (CLARITIN) 10 MG TAB PO SCH (08:36)
[2018-07-01] MEDS: meTOprolol TARTRATE 25 MG (LOPRESSOR) TABLET PO SCH (08:38)
[2018-07-01] MEDS: DIGOXIN 0.125 MG (LANOXIN) TAB PO SCH (08:38)
[2018-07-01] MEDS: inSUlin NPH (NovoLIN N) 1 UNIT/0.01 ML (CHARGE PER UNIT) SQ SCH (08:39)
[2018-07-01] MEDS: TRIAMCINOLONE 0.1% CR (KENALOG) 15 GM TUBE TOP SCH (08:40)
[2018-07-01] MEDS: ACETAMINOPHEN 325 MG TABLET PO PRN (08:47)
--- NOTE | 2018-07-01 09:22 | Cardiology Progress Note ---
Cardiology SOAP Progress Note Objective: I&O/Vital Signs 07/01/18 07/01/18 07/01/18 05:16 09:00 13:04 Temp 99.0 Pulse 67 68 Resp 20 20 B/P (MAP) 135/70 (91) 128/70 Pulse Ox 93 93 O2 Delivery Nasal Cannula Nasal Cannula Nasal Cannula O2 Flow Rate 2.00 2.00 2.00 07/01/18 00:00 Intake Total 750 ml Balance 750 ml Weight (Pounds): 270 Weight (Ounces): 0.2 Weight (Calculated Kilograms): 122.648713 Constitutional: AAO x 3, well-developed, well-nourished, other (obese) Respiratory: chest is bilaterally symmetric, lungs clear to auscultation, other (tenderness over lower sternum) Cardiovascular: regular rate-rhythm, S1 and S2, systolic murmur (soft KAVITA at card base) Gastrointestional: No tender; soft; No guarding, No rebound; audible bowel sounds Extremities: No clubbing, No cyanosis, No significant edema Neurologic/Psychiatric: alert, normal mood/affect, oriented x 3, grossly intact , power is 5/5 both on sides Skin: warm/dry; No cyanosis, No cool, No diaphoresis, No rash on exposed areas , No ulcerations on exposed areas Results/Procedures: Labs Laboratory Tests 06/30/18 16:15: Glucometer 164H 06/30/18 20:24: Glucometer 218H 07/01/18 04:34: Glucometer 146H Microbiology 06/22/18 MRSA Screen - Final, Complete MRSA not isolated A/P: Assessment/Dx: Admission Diagnosis sinus tachycardia, PAF, Hypertension Coronary artery disease Acute on Chronic renal insufficiency Anemia, Shortness of breath Plan: Shortness of breath, on lasix. Gained 2 pounds, likely fluid. Check BNP. BNP on 06/23/2018 was 330. Acute on chronic kidney disease. Lasix held by the primary team. Sinus tachycardia, resolved. history of paroxysmal atrial fibrillation. currently in sinus rhythm. Borderline BP : low dose bb. Status post respiratory failure with pneumonia and UTI and sepsis. Improved, receiving physical therapy Debility and generalized weakness. Receiving physical therapy Anemia- worsening. Has been following with Dr. Field. Port placed. Coronary artery disease, history of CABG 4 done in February 2018. Clinically stable. Continue to monitor History of paroxysmal atrial fibrillation, unable to tolerate oral anticoagulation due to recurrent GI bleed. Moderate size left pericardial effusion, persistent since the bypass surgery. Maintained on Lasix, continue to monitor. Congestive heart failure, chronic left ventricular diastolic dysfunction, secondary to hypertension. Hypertension, controlled on current medication, continue to monitor History of hepatic cirrhosis, unknown etiology. Scheduled to see a plexiglas former as an outpatient History of esophageal paresis and gastritis. Followed and managed by primary care physician next History of GAVE History of ascites secondary to hepatic cirrhosis Status post pneumonia and UTI resulted in septic shock and encephalopathy Status post respiratory failure. Obesity, BMI 45 Thank you for your consultation. Please call me if you have any questions. Estela Jorge MD, FACP, FACC, FSCAI, FHRS, CCDS Interventional Cardiology Cardiac Electrophysiology Vascular Medicine and Endovascular Interventions Wei JORGE MD Jul 01, 2018 09:22
[2018-07-01 13:04] VITALS: BP 128/70
== END 2018-07-01 09:45 | disposition home health service (06) | DRG 91 ==
PROVIDERS: ADMIT Internal Medicine; ATTEND Internal Medicine
PROC: 3E0U33Z Introduction of Anti-inflammatory into Joints, Percutaneous Approach (ICD-10-PCS; principal; 2018-06-28)
DX: G72.81 Critical illness myopathy (principal); I13.0 Hypertensive heart and chronic kidney disease with heart failure and stage 1 through stage 4 chronic kidney disease, or unspecified chronic kidney disease; I50.32 Chronic diastolic (congestive) heart failure; N18.3 Chronic kidney disease, stage 3 (moderate); I48.0 Paroxysmal atrial fibrillation; E66.01 Morbid (severe) obesity due to excess calories; K31.811 Angiodysplasia of stomach and duodenum with bleeding; Z68.42 Body mass index [BMI] 45.0-49.9, adult; E11.65 Type 2 diabetes mellitus with hyperglycemia; J96.11 Chronic respiratory failure with hypoxia; K76.6 Portal hypertension; J90 Pleural effusion, not elsewhere classified; I31.3 Pericardial effusion (noninflammatory); S46.912A Strain of unspecified muscle, fascia and tendon at shoulder and upper arm level, left arm, initial encounter; D50.0 Iron deficiency anemia secondary to blood loss (chronic); I25.119 Atherosclerotic heart disease of native coronary artery with unspecified angina pectoris; E03.9 Hypothyroidism, unspecified; F41.9 Anxiety disorder, unspecified; E78.5 Hyperlipidemia, unspecified; K22.70 Barrett's esophagus without dysplasia; K21.9 Gastro-esophageal reflux disease without esophagitis; K74.60 Unspecified cirrhosis of liver; J44.9 Chronic obstructive pulmonary disease, unspecified; D69.6 Thrombocytopenia, unspecified; L40.9 Psoriasis, unspecified; I25.2 Old myocardial infarction; E53.8 Deficiency of other specified B group vitamins; I87.2 Venous insufficiency (chronic) (peripheral); E83.42 Hypomagnesemia; D70.9 Neutropenia, unspecified
CPT/HCPCS: 36415; 71045; 71046; 73030; 80048; 80053; 82274; 82728; 82962; 83735; 83880; 84100; 84443; 85014; 85018; 85025; 85027; 85610; 85730; 86850; 86900; 86901; 86902; 86920; 86922; 87081; 93005

== ENCOUNTER → 2018-07-05 | Outpatient (CLI) | payer MEDICARE ==
[~2018-07-05] MED LIST changes: +ACET325T38 PO; +CETI10TA20 PO; +DIGO125T18 PO; +FURO40TA4 PO; +LEVO100T PO; +MAGN400T6 PO; +METO-333 PO; +NITR0.4T SL; +SENN-145 PO; +TR1C15 TOP
[2018-07-05 19:23] LABS: BASOPHILS % (AUTO) 0 % (0-10); EOSINOPHILS # (AUTO) 0.3 10^3/uL (0.0-0.3); EOSINOPHILS % (AUTO) 6 % (0-10); HEMATOCRIT 29 % (35-52); HEMOGLOBIN 8.9 G/DL (11.5-16.0); LYMPHOCYTES # (AUTO) 0.6 X 10^3 (1.0-4.0); LYMPHOCYTES % (AUTO) 12 % (12-44); MEAN CORPUSCULAR HEMOGLOBIN 29 PG (25-34); MEAN CORPUSCULAR HGB CONC 31 G/DL (32-36); MEAN CORPUSCULAR VOLUME 95 FL (80-99); MEAN PLATELET VOLUME 10.3 FL (7.4-10.4); MONOCYTES # (AUTO) 0.6 X 10^3 (0.0-1.0); MONOCYTES % (AUTO) 12 % (0-12); NEUTROPHILS # (AUTO) 3.6 X 10^3 (1.8-7.8); NEUTROPHILS % (AUTO) 71 % (42-75); PLATELET COUNT 156 10^3/uL (130-400); RED BLOOD COUNT 3.03 10^6/uL (4.35-5.85); RED CELL DISTRIBUTION WIDTH 16.6 % (10.0-14.5); WHITE BLOOD COUNT 5.1 10^3/uL (4.3-11.0)
[2018-07-05 19:40] LABS: ALBUMIN 2.9 GM/DL (3.2-4.5); BILIRUBIN,TOTAL 0.8 MG/DL (0.1-1.0); CALCIUM 8.9 MG/DL (8.5-10.1); CREATININE SERUM 1.15 MG/DL (0.60-1.30); POTASSIUM 3.9 MMOL/L (3.6-5.0); TOTAL PROTEIN 6.6 GM/DL (6.4-8.2)
== END ==
LOC: LABNPT 19:14
PROVIDERS: ATTEND Family Medicine
DX: D64.9 Anemia, unspecified (principal); E11.22 Type 2 diabetes mellitus with diabetic chronic kidney disease; N18.9 Chronic kidney disease, unspecified; K74.60 Unspecified cirrhosis of liver
CPT/HCPCS: 80053; 85025

== ENCOUNTER → 2018-07-05 | Outpatient (CLI) | payer MEDICARE | LOC: HH 08:00 | PROVIDERS: ATTEND Internal Medicine Hematology & Oncology | DX: D64.9 Anemia, unspecified (principal); E11.9 Type 2 diabetes mellitus without complications; N18.9 Chronic kidney disease, unspecified; K74.60 Unspecified cirrhosis of liver ==

== ENCOUNTER → 2018-08-17 | Outpatient (CLI) | payer MEDICARE, OTHER ==
[2018-08-17 14:24] LABS: FREE T4 (FREE THYROXINE) 1.63 NG/DL (0.70-1.48)
== END ==
LOC: LAB 13:16
PROVIDERS: ATTEND Family Medicine
DX: E03.9 Hypothyroidism, unspecified (principal)
CPT/HCPCS: 36415; 84439; 84443

== ENCOUNTER → 2018-08-30 | Outpatient (CLI) | payer MEDICARE, OTHER ==
[2018-08-30 14:12] LABS: BASOPHILS % (AUTO) 1 % (0-10); EOSINOPHILS # (AUTO) 0.3 10^3/uL (0.0-0.3); EOSINOPHILS % (AUTO) 6 % (0-10); HEMATOCRIT 26 % (35-52); HEMOGLOBIN 8.3 G/DL (11.5-16.0); LYMPHOCYTES # (AUTO) 0.9 X 10^3 (1.0-4.0); LYMPHOCYTES % (AUTO) 16 % (12-44); MEAN CORPUSCULAR HEMOGLOBIN 31 PG (25-34); MEAN CORPUSCULAR HGB CONC 32 G/DL (32-36); MEAN CORPUSCULAR VOLUME 95 FL (80-99); MEAN PLATELET VOLUME 10.7 FL (7.4-10.4); MONOCYTES # (AUTO) 0.7 X 10^3 (0.0-1.0); MONOCYTES % (AUTO) 13 % (0-12); NEUTROPHILS # (AUTO) 3.4 X 10^3 (1.8-7.8); NEUTROPHILS % (AUTO) 65 % (42-75); PLATELET COUNT 123 10^3/uL (130-400); RED CELL DISTRIBUTION WIDTH 14.8 % (10.0-14.5); WHITE BLOOD COUNT 5.3 10^3/uL (4.3-11.0)
[2018-08-30 14:33] LABS: ALBUMIN 3.3 GM/DL (3.2-4.5); BILIRUBIN,TOTAL 0.8 MG/DL (0.1-1.0); CALCIUM 8.8 MG/DL (8.5-10.1); CREATININE SERUM 3.83 MG/DL (0.60-1.30); MAGNESIUM 3.1 MG/DL (1.8-2.4); POTASSIUM 4.5 MMOL/L (3.6-5.0); TOTAL PROTEIN 6.8 GM/DL (6.4-8.2)
== END ==
LOC: LAB 13:34
PROVIDERS: ATTEND Internal Medicine Advanced Heart Failure and Transplant Cardiology
DX: I50.32 Chronic diastolic (congestive) heart failure (principal)
CPT/HCPCS: 80053; 83735; 83880

== ENCOUNTER → 2018-09-17 | Outpatient (CLI) | payer MEDICARE, OTHER ==
[2018-09-17 11:08] LABS: CALCIUM 9.2 MG/DL (8.5-10.1); CREATININE SERUM 2.4 MG/DL (0.60-1.30); POTASSIUM 4.9 MMOL/L (3.6-5.0)
== END ==
LOC: LAB 10:01
PROVIDERS: ATTEND Internal Medicine Advanced Heart Failure and Transplant Cardiology
DX: I50.32 Chronic diastolic (congestive) heart failure (principal); E03.9 Hypothyroidism, unspecified
CPT/HCPCS: 36415; 80048

== ENCOUNTER → 2018-09-22 | Outpatient (CLI) | payer MEDICARE, OTHER ==
[2018-09-22 14:21] LABS: CREATININE SERUM 3.02 MG/DL (0.60-1.30)
== END ==
LOC: LAB 13:27
PROVIDERS: ATTEND Internal Medicine Advanced Heart Failure and Transplant Cardiology
DX: I50.32 Chronic diastolic (congestive) heart failure (principal)
CPT/HCPCS: 36415; 80048

== ENCOUNTER 2018-09-27 18:28 | Emergency (ER) | payer MEDICARE, OTHER ==
[~2018-09-27] VITALS: Ht 162.6 cm; Wt 94.3 kg
--- NOTE | 2018-09-27 19:20 | Diagnostic Imaging Report ---
EXAMINATION: Chest, PA and lateral views. INDICATION: Shortness of breath. COMPARISON: Multiple priors, most recent performed on 06/29/2018. FINDINGS: Right IJ Port-A-Cath is unchanged in position, with the distal tip overlying the upper SVC. Mild decrease in size of moderate left pleural effusion, with adjacent subsegmental atelectasis demonstrated in the left lower lung. The right lung remains clear. There is unchanged prominence of the central pulmonary vasculature, without overt edema. No pneumothorax is identified. The cardiomediastinal silhouette is not significantly changed. No acute osseous abnormality is identified. Median sternotomy wires appear intact. IMPRESSION: Interval decrease in size of moderate left pleural effusion, with persistent left basilar atelectasis. The right lung remains clear. Dictated by: Dictated on workstation # [id number]
[2018-09-27 19:26] LABS: BASOPHILS % (AUTO) 0 % (0-10); EOSINOPHILS # (AUTO) 0.3 10^3/uL (0.0-0.3); EOSINOPHILS % (AUTO) 6 % (0-10); HEMATOCRIT 26 % (35-52); HEMOGLOBIN 8.3 G/DL (11.5-16.0); LYMPHOCYTES # (AUTO) 0.9 X 10^3 (1.0-4.0); LYMPHOCYTES % (AUTO) 19 % (12-44); MEAN CORPUSCULAR HEMOGLOBIN 30 PG (25-34); MEAN CORPUSCULAR HGB CONC 32 G/DL (32-36); MEAN CORPUSCULAR VOLUME 94 FL (80-99); MEAN PLATELET VOLUME 10.5 FL (7.4-10.4); MONOCYTES # (AUTO) 0.6 X 10^3 (0.0-1.0); MONOCYTES % (AUTO) 12 % (0-12); NEUTROPHILS # (AUTO) 2.9 X 10^3 (1.8-7.8); NEUTROPHILS % (AUTO) 62 % (42-75); PLATELET COUNT 139 10^3/uL (130-400); RED CELL DISTRIBUTION WIDTH 15.2 % (10.0-14.5); WHITE BLOOD COUNT 4.7 10^3/uL (4.3-11.0)
--- NOTE | 2018-09-27 19:35 | ED Respiratory ---
General Chief Complaint: Respiratory Problems Stated Complaint: SOA / SWELLING Source: patient Exam Limitations: no limitations History of Present Illness Date Seen by Provider: Sep 27, 2018 Time Seen by Provider: 18:30 Initial Comments This 63-year-old woman presents to emergency room with complaints of shortness of breath, weight gain of 9 pounds over the last week, and mild cough without fever. She has a history of chronic kidney disease and fluid overload. She was previously taking Bumex and spironolactone but has not had any in several days. She has history of coronary artery disease with bypass surgery. Oxygen saturation is noted to be 90 percent on room air. Patient usually wears nasal cannula at 2 L/m. Patient also reports a history of anemia with transfusion therapy. Allergies and Home Medications Allergies Coded Allergies: Slzhanf-Pdf-Der Reductase Inhibitor (Verified Allergy, Intermediate, GI UPSET, N/V, 11/06/17) cefadroxil (Unverified Allergy, Mild, 01/01/17) Sulfa (Sulfonamide Antibiotics) (Verified Allergy, Unknown, 06/18/18) Home Medications Acetaminophen 325 Mg Tablet, 650 MG PO Q6H PRN for PAIN-MILD, (Reported) Cetirizine HCl 10 Mg Tablet, 10 MG PO DAILY, (Reported) Digoxin 125 Mcg Tablet, 0.125 MG PO DAILY Prescribed by: MICHELLE GARCIA on 07/01/18811 Diphenhydramine HCl 25 Mg Capsule, 25 MG PO Q6H PRN for ALLERGIES, (Reported) Folic Acid 1 Mg Tablet, 1 MG PO DAILY, (Reported) Furosemide 40 Mg Tablet, 40 MG PO Q48H Prescribed by: MICHELLE GARCIA on 07/01/18 08 Insulin Aspart 300 Units/3 Ml Solution, 4 UNITS SQ TIDAC, (Reported) Insulin NPH Human Isophane 100 Unit/1 Ml Vial, 14 UNIT SQ DAILY, (Reported) Levothyroxine Sodium 100 Mcg Tablet, 200 MCG PO Q48H Prescribed by: MICHELLE GARCIA on 07/01/18811 Magnesium Oxide 400 Mg Tablet, 400 MG PO BIDPC Prescribed by: MICHELLE GARCIA on 07/01/18 08 Metoprolol Tartrate 25 Mg Tablet, 25 MG PO BID Prescribed by: MICHELLE GARCIA on 07/01/18 08 Nitroglycerin 0.4 Mg Tab.subl, 0.4 MG SL UD PRN for CHEST PAIN, (Reported) Omeprazole 40 Mg Capsule.dr, 40 MG PO BID, (Reported) Ondansetron HCl 8 Mg Tablet, 8 MG PO Q8H PRN for NAUSEA/VOMITING-1ST LINE Prescribed by: MICHELLE GARCIA on 07/01/18811 Potassium Chloride 20 Meq Tablet.er, 20 MEQ PO DAILY, (Reported) Sennosides/Docusate Sodium 1 Each Tablet, 1 TAB PO HS, (Reported) Tizanidine HCl 4 Mg Tablet, 4 MG PO TID PRN for MUSCLE SPASMS, (Reported) Tramadol HCl 50 Mg Tablet, 50 MG PO TID PRN for PAIN-MODERATE Prescribed by: MICHELLE GARCIA on 07/01/18811 Triamcinolone Acet 15 Gm Cr, 0 GM TOP BID Prescribed by: MICHELLE GARCIA on 07/01/18811 Patient Home Medication List Home Medication List Reviewed: Yes Review of Systems Review of Systems Constitutional: no symptoms reported EENTM: no symptoms reported Respiratory: see HPI Cardiovascular: see HPI Gastrointestinal: no symptoms reported Genitourinary: no symptoms reported : No Musculoskeletal: no symptoms reported Skin: no symptoms reported Psychiatric/Neurological: No Symptoms Reported Hematologic/Lymphatic: No Symptoms Reported Immunological/Allergic: no symptoms reported Past Dkzpvka-Yugvkn-Jqbrdu Hx Patient Social History Type Used: Cigarettes Former Smoker, Quit: May 20, 1980 Recent Foreign Travel: No Contact w/Someone Who Travel: No Recent Hopitalizations: Yes Immunizations Up To Date Tetanus Booster (TDap): Unknown PED Vaccines UTD: Yes Date of Pneumonia Vaccine: Jun 23, 2016 Date of Influenza Vaccine: May 18, 2018 Seasonal Allergies Seasonal Allergies: Yes Past Medical History Surgeries: Yes Adenoidectomy, Cardiac, CABG, Coronary Stent, Open Heart Surgery, Orthopedic, Tonsillectomy, Tubal Ligation Respiratory: Yes (LEFT PLEURAL EFFUSION) Sleep Apnea Currently Using CPAP: No Currently Using BIPAP: No Cardiac: Yes (CHF, STENT X1; CABG 02/16/2018 x 4 @ [facility]) Atrial Fibrillation, Chronic Edema/Swelling, Coronary Artery Disease, Heart Attack, High Cholesterol, Hypertension Neurological: Yes Reproductive Disorders: No Female Reproductive Disorders: Denies 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 Sexually Transmitted Disease: No HIV/AIDS: No Genitourinary: Yes Renal Failure Gastrointestinal: Yes Gastroesophageal Reflux, Gastrointestinal Bleed, Diverticulosis, Hemorrhoids, Polyps Musculoskeletal: Yes (POOR AMBULATION--USES WALKER SINCE CABG) Degenerate Disk Disease, Arthritis, Chronic Back Pain, Fractures Endocrine: Yes Diabetes, Insulin dep HEENT: No Loss of Vision: Denies Hearing Impairment: Denies Cancer: No Psychosocial: No Anxiety Integumentary: Yes Psoriasis Blood Disorders: Yes (acute anemia) Adverse Reaction/Blood Tranf: Yes (Antibody JKA) Family Medical History Arthritis G8 BROTHER Completed stroke 19 MOTHER FH: anemia 19 MOTHER FH: lupus G8 SISTER FH: throat cancer 19 FATHER Hypertension G8 SISTER Myocardial infarction 19 MOTHER Thyroid disease 19 MOTHER G8 SISTER Hypertension, Stroke, Other Conditions/Hx Physical Exam Vital Signs - First Documented 09/27/18 09/27/18 18:32 21:00 Temp 98.6 Pulse 61 Resp 22 B/P (MAP) 163/62 (95) Pulse Ox 90 O2 Delivery Room Air O2 Flow Rate 1.00 Capillary Refill : Height: 5'4.00" Weight: 270lbs. 0.2oz. 122.233375si; 45.0 BMI Method:Stated General Appearance: WD/WN, no apparent distress HEENT: normal ENT inspection Neck: normal inspection Respiratory: lungs clear, no respiratory distress, no accessory muscle use, decreased breath sounds (slightly diminished in the bases) Cardiovascular: regular rate, rhythm, no edema, no murmur Gastrointestinal: non tender, soft Extremities: swelling (bilateral pitting edema of the lower extremities) Neurologic/Psychiatric: music researcher II-XII nml as tested, no motor/sensory deficits, alert, normal mood/affect, oriented x 3 Skin: normal color, warm/dry Procedures/Interventions Date of ETT Placement: May 30, 2018 Time of ETT Placement: 1330 Progress/Results/Core Measures Suspected Sepsis SIRS Temperature: Pulse: Respiratory Rate: Laboratory Tests 09/27/18 19:15: White Blood Count 4.7 Blood Pressure / Mean: Laboratory Tests 09/27/18 19:15: Creatinine 2.32H, Platelet Count 139, Total Bilirubin 0.7 Results/Orders Lab Results Laboratory Tests Test 09/27/18 19:15 Range/Units White Blood Count 4.7 4.3-11.0 10^3/uL Red Blood Count 2.79 L 4.35-5.85 10^6/uL Hemoglobin 8.3 L 11.5-16.0 G/DL Hematocrit 26 L 35-52 % Mean Corpuscular Volume 94 80-99 FL Mean Corpuscular Hemoglobin 30 25-34 PG Mean Corpuscular Hemoglobin Concent 32 32-36 G/DL Red Cell Distribution Width 15.2 H 10.0-14.5 % Platelet Count 139 130-400 10^3/uL Mean Platelet Volume 10.5 H 7.4-10.4 FL Neutrophils (%) (Auto) 62 42-75 % Lymphocytes (%) (Auto) 19 12-44 % Monocytes (%) (Auto) 12 0-12 % Eosinophils (%) (Auto) 6 0-10 % Basophils (%) (Auto) 0 0-10 % Neutrophils # (Auto) 2.9 1.8-7.8 X 10^3 Lymphocytes # (Auto) 0.9 L 1.0-4.0 X 10^3 Monocytes # (Auto) 0.6 0.0-1.0 X 10^3 Eosinophils # (Auto) 0.3 0.0-0.3 10^3/uL Basophils # (Auto) 0.0 0.0-0.1 10^3/uL Sodium Level 139 135-145 MMOL/L Potassium Level 4.9 3.6-5.0 MMOL/L Chloride Level 108 H 98-107 MMOL/L Carbon Dioxide Level 21 21-32 MMOL/L Anion Gap 10 5-14 MMOL/L Blood Urea Nitrogen 35 H 7-18 MG/DL Creatinine 2.32 H 0.60-1.30 MG/DL Estimat Glomerular Filtration Rate 21 BUN/Creatinine Ratio 15 Glucose Level 139 H 70-105 MG/DL Calcium Level 9.3 8.5-10.1 MG/DL Corrected Calcium 9.8 8.5-10.1 MG/DL Magnesium Level 2.7 H 1.8-2.4 MG/DL Total Bilirubin 0.7 0.1-1.0 MG/DL Aspartate Amino Transf (AST/SGOT) 17 5-34 U/L Alanine Aminotransferase (ALT/SGPT) 11 0-55 U/L Alkaline Phosphatase 57 40-136 U/L Troponin I < 0.028 <0.028 NG/ML C-Reactive Protein High Sensitivity 0.55 H 0.00-0.50 MG/DL B-Type Natriuretic Peptide 536.3 H <100.0 PG/ML Total Protein 6.9 6.4-8.2 GM/DL Albumin 3.4 3.2-4.5 GM/DL Digoxin Level 1.44 0.80-2.00 NG/ML My Orders Orders - MAUREEN AVENDAÑO MD BNP (09/27/18 18:40) Cbc With Automated Diff (09/27/18 18:40) Comprehensive Metabolic Panel (09/27/18 18:40) Hs C Reactive Protein (09/27/18 18:40) Magnesium (09/27/18 18:40) Chest Pa/Lat (2 View) (09/27/18 18:40) Troponin I (09/27/18 18:53) Ekg Tracing (09/27/18 18:53) Digoxin (09/27/18 20:00) Vital Signs/I&O 09/27/18 09/27/18 18:32 21:00 Temp 98.6 98.6 Pulse 61 63 Resp 22 18 B/P (MAP) 163/62 (95) 164/48 (86) Pulse Ox 90 96 O2 Delivery Room Air Nasal Cannula O2 Flow Rate 1.00 Capillary Refill : Progress Note : Progress Note Workup was relatively unremarkable. Hemoglobin and creatinine were stable. See discharge instructions. ECG Initial ECG Impression Date: Sep 27, 2018 Initial ECG Impression Time: 19:00 Initial ECG Rate: 62 Initial ECG Rhythm: Normal Sinus Comment Sinus rhythm with no ST elevation or depression. No abnormal intervals or axis deviation. Subtle nonspecific ST changes. Diagnostic Imaging Diagonstic Imaging: Xray Plain Films/CT/US/NM/MRI: chest Comments Chest x-ray viewed by me and compared with prior. Report reviewed. See report below: NAME: YOLETTE PISANO [facility] REC#: [id number] PT STATUS: REG ER : 1955 PHYSICIAN: MAUREEN AVENDAÑO MD ADMIT DATE: 09/27/18/ER Draft Date of Exam:09/27/18 CHEST PA/LAT (2 VIEW) EXAMINATION: Chest, PA and lateral views. INDICATION: Shortness of breath. COMPARISON: Multiple priors, most recent performed on 06/29/2018. FINDINGS: Right IJ Port-A-Cath is unchanged in position, with the distal tip overlying the upper SVC. Mild decrease in size of moderate left pleural effusion, with adjacent subsegmental atelectasis demonstrated in the left lower lung. The right lung remains clear. There is unchanged prominence of the central pulmonary vasculature, without overt edema. No pneumothorax is identified. The cardiomediastinal silhouette is not significantly changed. No acute osseous abnormality is identified. Median sternotomy wires appear intact. IMPRESSION: Interval decrease in size of moderate left pleural effusion, with persistent left basilar atelectasis. The right lung remains clear. Dictated on workstation # [id number] Dict: 09/27/181912 Trans: 09/27/181918 AS6 [id number] Interpreted by: LEIGH LEIVA DO Departure Impression Primary Impression: Fluid overload Qualified Codes: E87.70 - Fluid overload, unspecified Additional Impressions: Chronic kidney disease Qualified Codes: N18.9 - Chronic kidney disease, unspecified Shortness of breath Disposition: 01 HOME, SELF-CARE Condition: Stable Departure-Patient Inst. Decision time for Depature: 20:35 Referrals: JAMSE TORRES MD (PCP/Family) Primary Care Physician Patient Instructions: Chronic Kidney Disease Add. Discharge Instructions: Take 1 mg of Bumex and one dose of your spironolactone tonight. Call your baseball scout first thing tomorrow morning. If you are not able to get prompt instructions back, take an additional 1 mg of Bumex. Then follow baseball scout instructions. Return to care if you have worsening symptoms. All discharge instructions reviewed with patient and/or family. Voiced understanding. Copy Copies To 1: JAMES TORRES MD Copies To 2: Wei ALCARAZ MD, JOSHUA T MD Sep 27, 2018 19:35
[2018-09-27 19:55] LABS: ALANINE AMINOTRANSFERASE 11 U/L (0-55); ALBUMIN 3.4 GM/DL (3.2-4.5); ALKALINE PHOSPHATASE 57 U/L (40-136); BILIRUBIN,TOTAL 0.7 MG/DL (0.1-1.0); BUN/CREATININE RATIO 15; CALCIUM 9.3 MG/DL (8.5-10.1); CARBON DIOXIDE 21 MMOL/L (21-32); CHLORIDE 108 MMOL/L (98-107); CREATININE SERUM 2.32 MG/DL (0.60-1.30); GFR ESTIMATED 21; GLUCOSE 139 MG/DL (70-105); MAGNESIUM 2.7 MG/DL (1.8-2.4); POTASSIUM 4.9 MMOL/L (3.6-5.0); SODIUM 139 MMOL/L (135-145); TOTAL PROTEIN 6.9 GM/DL (6.4-8.2)
[2018-09-27 21:00] VITALS: BP 164/48
== END 2018-09-27 21:00 | disposition home or self-care (01) ==
LOC: EDUNIT# 18:28 → ER 18:30
DX: E87.70 Fluid overload, unspecified (principal); E11.22 Type 2 diabetes mellitus with diabetic chronic kidney disease; I13.0 Hypertensive heart and chronic kidney disease with heart failure and stage 1 through stage 4 chronic kidney disease, or unspecified chronic kidney disease; N18.9 Chronic kidney disease, unspecified; I50.9 Heart failure, unspecified; R06.02 Shortness of breath; F41.9 Anxiety disorder, unspecified; D64.9 Anemia, unspecified; K21.9 Gastro-esophageal reflux disease without esophagitis; I25.10 Atherosclerotic heart disease of native coronary artery without angina pectoris; G47.30 Sleep apnea, unspecified; I48.91 Unspecified atrial fibrillation; I25.2 Old myocardial infarction; E78.00 Pure hypercholesterolemia, unspecified; Z88.8 Allergy status to other drugs, medicaments and biological substances; Z88.2 Allergy status to sulfonamides; Z86.010 Personal history of colon polyps; Z87.19 Personal history of other diseases of the digestive system; Z99.81 Dependence on supplemental oxygen; Z98.51 Tubal ligation status; Z98.890 Other specified postprocedural states; Z79.4 Long term (current) use of insulin; Z87.891 Personal history of nicotine dependence; Z90.89 Acquired absence of other organs; Z95.5 Presence of coronary angioplasty implant and graft; Z82.49 Family history of ischemic heart disease and other diseases of the circulatory system; Z80.0 Family history of malignant neoplasm of digestive organs
CPT/HCPCS: 36415; 71046; 80053; 80162; 83735; 83880; 84484; 85025; 86141; 93005

== ENCOUNTER 2018-10-05 12:42 | Outpatient (RCR) | payer MEDICARE, OTHER ==
[2018-07-13 10:44] LABS: BASOPHILS % (AUTO) 0 % (0-10); EOSINOPHILS # (AUTO) 0.5 10^3/uL (0.0-0.3); EOSINOPHILS % (AUTO) 8 % (0-10); HEMATOCRIT 32 % (35-52); HEMOGLOBIN 9.7 G/DL (11.5-16.0); LYMPHOCYTES # (AUTO) 1.1 X 10^3 (1.0-4.0); LYMPHOCYTES % (AUTO) 17 % (12-44); MEAN CORPUSCULAR HEMOGLOBIN 30 PG (25-34); MEAN CORPUSCULAR HGB CONC 31 G/DL (32-36); MEAN CORPUSCULAR VOLUME 96 FL (80-99); MEAN PLATELET VOLUME 9.6 FL (7.4-10.4); MONOCYTES # (AUTO) 0.6 X 10^3 (0.0-1.0); MONOCYTES % (AUTO) 9 % (0-12); NEUTROPHILS # (AUTO) 4.2 X 10^3 (1.8-7.8); NEUTROPHILS % (AUTO) 66 % (42-75); PLATELET COUNT 167 10^3/uL (130-400); RED CELL DISTRIBUTION WIDTH 16.8 % (10.0-14.5); WHITE BLOOD COUNT 6.4 10^3/uL (4.3-11.0)
[2018-07-13 11:09] LABS: ALBUMIN 2.9 GM/DL (3.2-4.5); CALCIUM 9.2 MG/DL (8.5-10.1); CREATININE SERUM 1.2 MG/DL (0.60-1.30); POTASSIUM 4.1 MMOL/L (3.6-5.0); TOTAL PROTEIN 6.5 GM/DL (6.4-8.2)
[2018-08-02 12:20] LABS: BASOPHILS % (AUTO) 1 % (0-10); EOSINOPHILS # (AUTO) 0.4 10^3/uL (0.0-0.3); EOSINOPHILS % (AUTO) 8 % (0-10); HEMATOCRIT 30 % (35-52); HEMOGLOBIN 9.4 G/DL (11.5-16.0); LYMPHOCYTES # (AUTO) 1.2 X 10^3 (1.0-4.0); LYMPHOCYTES % (AUTO) 23 % (12-44); MEAN CORPUSCULAR HEMOGLOBIN 30 PG (25-34); MEAN CORPUSCULAR HGB CONC 32 G/DL (32-36); MEAN CORPUSCULAR VOLUME 93 FL (80-99); MEAN PLATELET VOLUME 10.2 FL (7.4-10.4); MONOCYTES # (AUTO) 0.6 X 10^3 (0.0-1.0); MONOCYTES % (AUTO) 12 % (0-12); NEUTROPHILS % (AUTO) 57 % (42-75); PLATELET COUNT 148 10^3/uL (130-400); RED CELL DISTRIBUTION WIDTH 16.3 % (10.0-14.5); WHITE BLOOD COUNT 5.3 10^3/uL (4.3-11.0)
[2018-08-05 11:58] LABS: BASOPHILS % (AUTO) 1 % (0-10); EOSINOPHILS # (AUTO) 0.4 10^3/uL (0.0-0.3); EOSINOPHILS % (AUTO) 8 % (0-10); HEMATOCRIT 28 % (35-52); HEMOGLOBIN 9.2 G/DL (11.5-16.0); LYMPHOCYTES # (AUTO) 1.1 X 10^3 (1.0-4.0); LYMPHOCYTES % (AUTO) 22 % (12-44); MEAN CORPUSCULAR HGB CONC 32 G/DL (32-36); MEAN CORPUSCULAR VOLUME 94 FL (80-99); MEAN PLATELET VOLUME 10.5 FL (7.4-10.4); MONOCYTES # (AUTO) 0.7 X 10^3 (0.0-1.0); MONOCYTES % (AUTO) 15 % (0-12); NEUTROPHILS # (AUTO) 2.8 X 10^3 (1.8-7.8); NEUTROPHILS % (AUTO) 54 % (42-75); PLATELET COUNT 146 10^3/uL (130-400); RED CELL DISTRIBUTION WIDTH 16.2 % (10.0-14.5); WHITE BLOOD COUNT 5.1 10^3/uL (4.3-11.0)
[2018-08-05 12:00] LABS: MEAN CORPUSCULAR HEMOGLOBIN 30 PG (25-34)
[2018-08-11 13:28] LABS: ABSOLUTE RETIC # 47 10e9/L (24-90); BASOPHILS % (AUTO) 1 % (0-10); EOSINOPHILS # (AUTO) 0.3 10^3/uL (0.0-0.3); EOSINOPHILS % (AUTO) 8 % (0-10); HEMATOCRIT 28 % (35-52); HEMOGLOBIN 8.8 G/DL (11.5-16.0); LYMPHOCYTES % (AUTO) 26 % (12-44); MEAN CORPUSCULAR HEMOGLOBIN 30 PG (25-34); MEAN CORPUSCULAR HGB CONC 31 G/DL (32-36); MEAN CORPUSCULAR VOLUME 95 FL (80-99); MEAN PLATELET VOLUME 10.6 FL (7.4-10.4); MONOCYTES # (AUTO) 0.4 X 10^3 (0.0-1.0); MONOCYTES % (AUTO) 11 % (0-12); NEUTROPHILS # (AUTO) 2.1 X 10^3 (1.8-7.8); NEUTROPHILS % (AUTO) 55 % (42-75); PLATELET COUNT 122 10^3/uL (130-400); RED CELL DISTRIBUTION WIDTH 15.7 % (10.0-14.5); WHITE BLOOD COUNT 3.7 10^3/uL (4.3-11.0)
[2018-08-11 13:37] LABS: ALBUMIN 3.2 GM/DL (3.2-4.5); BILIRUBIN,TOTAL 0.8 MG/DL (0.1-1.0); CALCIUM 9.6 MG/DL (8.5-10.1); CREATININE SERUM 2.64 MG/DL (0.60-1.30); POTASSIUM 4.2 MMOL/L (3.6-5.0); TOTAL PROTEIN 6.9 GM/DL (6.4-8.2)
[2018-08-17 13:44] LABS: BASOPHILS % (AUTO) 1 % (0-10); EOSINOPHILS # (AUTO) 0.3 10^3/uL (0.0-0.3); EOSINOPHILS % (AUTO) 6 % (0-10); HEMATOCRIT 27 % (35-52); HEMOGLOBIN 8.7 G/DL (11.5-16.0); LYMPHOCYTES % (AUTO) 22 % (12-44); MEAN CORPUSCULAR HEMOGLOBIN 31 PG (25-34); MEAN CORPUSCULAR HGB CONC 32 G/DL (32-36); MEAN CORPUSCULAR VOLUME 94 FL (80-99); MEAN PLATELET VOLUME 10.5 FL (7.4-10.4); MONOCYTES # (AUTO) 0.5 X 10^3 (0.0-1.0); MONOCYTES % (AUTO) 11 % (0-12); NEUTROPHILS # (AUTO) 2.8 X 10^3 (1.8-7.8); NEUTROPHILS % (AUTO) 61 % (42-75); PLATELET COUNT 131 10^3/uL (130-400); RED CELL DISTRIBUTION WIDTH 15.3 % (10.0-14.5); WHITE BLOOD COUNT 4.6 10^3/uL (4.3-11.0)
[2018-08-17 14:02] LABS: CALCIUM 9.3 MG/DL (8.5-10.1); CREATININE SERUM 3.7 MG/DL (0.60-1.30); POTASSIUM 4.2 MMOL/L (3.6-5.0)
[2018-08-23 14:09] LABS: BASOPHILS % (AUTO) 1 % (0-10); EOSINOPHILS # (AUTO) 0.3 10^3/uL (0.0-0.3); EOSINOPHILS % (AUTO) 7 % (0-10); HEMATOCRIT 27 % (35-52); HEMOGLOBIN 8.9 G/DL (11.5-16.0); LYMPHOCYTES # (AUTO) 1.2 X 10^3 (1.0-4.0); LYMPHOCYTES % (AUTO) 27 % (12-44); MEAN CORPUSCULAR HEMOGLOBIN 31 PG (25-34); MEAN CORPUSCULAR HGB CONC 33 G/DL (32-36); MEAN CORPUSCULAR VOLUME 94 FL (80-99); MEAN PLATELET VOLUME 10.3 FL (7.4-10.4); MONOCYTES # (AUTO) 0.6 X 10^3 (0.0-1.0); MONOCYTES % (AUTO) 14 % (0-12); NEUTROPHILS # (AUTO) 2.3 X 10^3 (1.8-7.8); NEUTROPHILS % (AUTO) 51 % (42-75); PLATELET COUNT 137 10^3/uL (130-400); RED CELL DISTRIBUTION WIDTH 15.1 % (10.0-14.5); WHITE BLOOD COUNT 4.5 10^3/uL (4.3-11.0)
[2018-08-23 14:26] LABS: CALCIUM 9.1 MG/DL (8.5-10.1); CREATININE SERUM 3.66 MG/DL (0.60-1.30); POTASSIUM 4.5 MMOL/L (3.6-5.0)
[2018-08-30 14:10] LABS: BASOPHILS % (AUTO) 1 % (0-10); EOSINOPHILS # (AUTO) 0.3 10^3/uL (0.0-0.3); EOSINOPHILS % (AUTO) 6 % (0-10); HEMATOCRIT 26 % (35-52); HEMOGLOBIN 8.3 G/DL (11.5-16.0); LYMPHOCYTES # (AUTO) 0.9 X 10^3 (1.0-4.0); LYMPHOCYTES % (AUTO) 16 % (12-44); MEAN CORPUSCULAR HEMOGLOBIN 31 PG (25-34); MEAN CORPUSCULAR HGB CONC 32 G/DL (32-36); MEAN CORPUSCULAR VOLUME 95 FL (80-99); MEAN PLATELET VOLUME 10.7 FL (7.4-10.4); MONOCYTES # (AUTO) 0.7 X 10^3 (0.0-1.0); MONOCYTES % (AUTO) 13 % (0-12); NEUTROPHILS # (AUTO) 3.4 X 10^3 (1.8-7.8); NEUTROPHILS % (AUTO) 65 % (42-75); PLATELET COUNT 123 10^3/uL (130-400); RED CELL DISTRIBUTION WIDTH 14.8 % (10.0-14.5); WHITE BLOOD COUNT 5.3 10^3/uL (4.3-11.0)
[2018-08-30 14:38] LABS: CREATININE SERUM 3.83 MG/DL (0.60-1.30); POTASSIUM 4.5 MMOL/L (3.6-5.0)
[2018-08-30 14:39] LABS: ALBUMIN 3.3 GM/DL (3.2-4.5); BILIRUBIN,TOTAL 0.8 MG/DL (0.1-1.0); CALCIUM 8.8 MG/DL (8.5-10.1); TOTAL PROTEIN 6.8 GM/DL (6.4-8.2)
[2018-09-06 10:41] LABS: BASOPHILS % (AUTO) 1 % (0-10); EOSINOPHILS # (AUTO) 0.2 10^3/uL (0.0-0.3); EOSINOPHILS % (AUTO) 7 % (0-10); HEMATOCRIT 25 % (35-52); HEMOGLOBIN 8.1 G/DL (11.5-16.0); LYMPHOCYTES % (AUTO) 32 % (12-44); MEAN CORPUSCULAR HEMOGLOBIN 31 PG (25-34); MEAN CORPUSCULAR HGB CONC 33 G/DL (32-36); MEAN CORPUSCULAR VOLUME 96 FL (80-99); MEAN PLATELET VOLUME 10.3 FL (7.4-10.4); MONOCYTES # (AUTO) 0.3 X 10^3 (0.0-1.0); MONOCYTES % (AUTO) 10 % (0-12); NEUTROPHILS # (AUTO) 1.6 X 10^3 (1.8-7.8); NEUTROPHILS % (AUTO) 50 % (42-75); PLATELET COUNT 115 10^3/uL (130-400); RED CELL DISTRIBUTION WIDTH 14.5 % (10.0-14.5); WHITE BLOOD COUNT 3.1 10^3/uL (4.3-11.0)
[2018-09-06 11:00] LABS: ALANINE AMINOTRANSFERASE < 6 U/L (0-55); ALBUMIN 3.1 GM/DL (3.2-4.5); ALKALINE PHOSPHATASE 65 U/L (40-136); BILIRUBIN,TOTAL 0.8 MG/DL (0.1-1.0); BUN/CREATININE RATIO 13; CALCIUM 9.4 MG/DL (8.5-10.1); CARBON DIOXIDE 24 MMOL/L (21-32); CHLORIDE 107 MMOL/L (98-107); CREATININE SERUM 2.06 MG/DL (0.60-1.30); GFR ESTIMATED 24; GLUCOSE 98 MG/DL (70-105); POTASSIUM 4.4 MMOL/L (3.6-5.0); SODIUM 140 MMOL/L (135-145); TOTAL PROTEIN 6.6 GM/DL (6.4-8.2)
[2018-09-13 13:20] LABS: BASOPHILS % (AUTO) 1 % (0-10); EOSINOPHILS # (AUTO) 0.2 10^3/uL (0.0-0.3); EOSINOPHILS % (AUTO) 6 % (0-10); HEMATOCRIT 24 % (35-52); HEMOGLOBIN 7.5 G/DL (11.5-16.0); LYMPHOCYTES # (AUTO) 1.1 X 10^3 (1.0-4.0); LYMPHOCYTES % (AUTO) 28 % (12-44); MEAN CORPUSCULAR HEMOGLOBIN 30 PG (25-34); MEAN CORPUSCULAR HGB CONC 31 G/DL (32-36); MEAN CORPUSCULAR VOLUME 97 FL (80-99); MEAN PLATELET VOLUME 9.2 FL (7.4-10.4); MONOCYTES # (AUTO) 0.3 X 10^3 (0.0-1.0); MONOCYTES % (AUTO) 8 % (0-12); NEUTROPHILS # (AUTO) 2.2 X 10^3 (1.8-7.8); NEUTROPHILS % (AUTO) 58 % (42-75); PLATELET COUNT 140 10^3/uL (130-400); RED CELL DISTRIBUTION WIDTH 14.6 % (10.0-14.5); WHITE BLOOD COUNT 3.9 10^3/uL (4.3-11.0)
[2018-09-13 13:35] LABS: CREATININE SERUM 2.31 MG/DL (0.60-1.30); POTASSIUM 5.1 MMOL/L (3.6-5.0)
[2018-09-22 13:59] LABS: BASOPHILS % (AUTO) 1 % (0-10); EOSINOPHILS # (AUTO) 0.2 10^3/uL (0.0-0.3); EOSINOPHILS % (AUTO) 6 % (0-10); HEMATOCRIT 24 % (35-52); HEMOGLOBIN 7.4 G/DL (11.5-16.0); LYMPHOCYTES # (AUTO) 0.9 X 10^3 (1.0-4.0); LYMPHOCYTES % (AUTO) 25 % (12-44); MEAN CORPUSCULAR HEMOGLOBIN 30 PG (25-34); MEAN CORPUSCULAR HGB CONC 31 G/DL (32-36); MEAN CORPUSCULAR VOLUME 97 FL (80-99); MEAN PLATELET VOLUME 9.7 FL (7.4-10.4); MONOCYTES # (AUTO) 0.4 X 10^3 (0.0-1.0); MONOCYTES % (AUTO) 11 % (0-12); NEUTROPHILS # (AUTO) 2.2 X 10^3 (1.8-7.8); NEUTROPHILS % (AUTO) 58 % (42-75); PLATELET COUNT 156 10^3/uL (130-400); RED CELL DISTRIBUTION WIDTH 14.9 % (10.0-14.5); WHITE BLOOD COUNT 3.8 10^3/uL (4.3-11.0)
[2018-09-27 13:27] LABS: BASOPHILS % (AUTO) 1 % (0-10); EOSINOPHILS # (AUTO) 0.2 10^3/uL (0.0-0.3); EOSINOPHILS % (AUTO) 6 % (0-10); HEMATOCRIT 26 % (35-52); HEMOGLOBIN 8.2 G/DL (11.5-16.0); LYMPHOCYTES # (AUTO) 0.9 X 10^3 (1.0-4.0); LYMPHOCYTES % (AUTO) 22 % (12-44); MEAN CORPUSCULAR HEMOGLOBIN 30 PG (25-34); MEAN CORPUSCULAR HGB CONC 32 G/DL (32-36); MEAN CORPUSCULAR VOLUME 95 FL (80-99); MEAN PLATELET VOLUME 9.9 FL (7.4-10.4); MONOCYTES # (AUTO) 0.5 X 10^3 (0.0-1.0); MONOCYTES % (AUTO) 12 % (0-12); NEUTROPHILS # (AUTO) 2.4 X 10^3 (1.8-7.8); NEUTROPHILS % (AUTO) 60 % (42-75); PLATELET COUNT 141 10^3/uL (130-400); RED CELL DISTRIBUTION WIDTH 15.7 % (10.0-14.5)
[2018-10-04 14:16] LABS: BASOPHILS % (AUTO) 0 % (0-10); EOSINOPHILS # (AUTO) 0.3 10^3/uL (0.0-0.3); EOSINOPHILS % (AUTO) 6 % (0-10); HEMATOCRIT 22 % (35-52); LYMPHOCYTES % (AUTO) 23 % (12-44); MEAN CORPUSCULAR HEMOGLOBIN 30 PG (25-34); MEAN CORPUSCULAR HGB CONC 31 G/DL (32-36); MEAN CORPUSCULAR VOLUME 95 FL (80-99); MEAN PLATELET VOLUME 9.7 FL (7.4-10.4); MONOCYTES # (AUTO) 0.4 X 10^3 (0.0-1.0); MONOCYTES % (AUTO) 9 % (0-12); NEUTROPHILS # (AUTO) 2.5 X 10^3 (1.8-7.8); NEUTROPHILS % (AUTO) 61 % (42-75); PLATELET COUNT 145 10^3/uL (130-400); RED CELL DISTRIBUTION WIDTH 15.2 % (10.0-14.5); WHITE BLOOD COUNT 4.1 10^3/uL (4.3-11.0)
[2018-10-04 14:32] LABS: ALBUMIN 3.3 GM/DL (3.2-4.5); BILIRUBIN,TOTAL 0.6 MG/DL (0.1-1.0); CALCIUM 9.2 MG/DL (8.5-10.1); CREATININE SERUM 2.08 MG/DL (0.60-1.30); POTASSIUM 4.7 MMOL/L (3.6-5.0); TOTAL PROTEIN 6.6 GM/DL (6.4-8.2)
[~2018-10-05 12:42] MED LIST changes: +CYANOCOBALAMIN INJ 1000 MCG/ML (CANCER CENTER) ONE; +NS (IVPB) CANCER CENTER 250 ML ONE; +NS IV 500 ML (CANCER CENTER) 500 ML ONE
[2018-10-05] MEDS ORDERED: NS IV 500 ML (CANCER CENTER) 500 ML ONE (12:48)
[2018-10-07 15:13] LABS: BASOPHILS % (AUTO) 1 % (0-10); EOSINOPHILS # (AUTO) 0.2 10^3/uL (0.0-0.3); EOSINOPHILS % (AUTO) 6 % (0-10); HEMATOCRIT 22 % (35-52); LYMPHOCYTES # (AUTO) 0.9 X 10^3 (1.0-4.0); LYMPHOCYTES % (AUTO) 23 % (12-44); MEAN CORPUSCULAR HEMOGLOBIN 29 PG (25-34); MEAN CORPUSCULAR HGB CONC 31 G/DL (32-36); MEAN CORPUSCULAR VOLUME 93 FL (80-99); MEAN PLATELET VOLUME 9.9 FL (7.4-10.4); MONOCYTES # (AUTO) 0.4 X 10^3 (0.0-1.0); MONOCYTES % (AUTO) 9 % (0-12); NEUTROPHILS # (AUTO) 2.3 X 10^3 (1.8-7.8); NEUTROPHILS % (AUTO) 61 % (42-75); PLATELET COUNT 141 10^3/uL (130-400); RED CELL DISTRIBUTION WIDTH 17.9 % (10.0-14.5); WHITE BLOOD COUNT 3.7 10^3/uL (4.3-11.0)
[2018-10-07 15:15] LABS: HEMOGLOBIN 6.8 G/DL (11.5-16.0)
== END 2018-10-07 15:58 | disposition home or self-care (01) ==
LOC: ONC 12:42
PROVIDERS: ATTEND Internal Medicine Hematology & Oncology
DX: D50.0 Iron deficiency anemia secondary to blood loss (chronic) (principal); E53.8 Deficiency of other specified B group vitamins; K31.819 Angiodysplasia of stomach and duodenum without bleeding; K74.60 Unspecified cirrhosis of liver; I25.10 Atherosclerotic heart disease of native coronary artery without angina pectoris; E03.9 Hypothyroidism, unspecified; I12.9 Hypertensive chronic kidney disease with stage 1 through stage 4 chronic kidney disease, or unspecified chronic kidney disease; N18.3 Chronic kidney disease, stage 3 (moderate); E11.22 Type 2 diabetes mellitus with diabetic chronic kidney disease; I48.91 Unspecified atrial fibrillation; Z79.899 Other long term (current) drug therapy
CPT/HCPCS: 36415; 36430; 36591; 80048; 80053; 82728; 84443; 85025; 85045; 86850; 86900; 86901; 86902; 86920; 86922; 96372

== ENCOUNTER → 2018-10-11 | Outpatient (CLI) | payer MEDICARE ==
[~2018-10-11] MED LIST changes: -CYANOCOBALAMIN INJ 1000 MCG/ML (CANCER CENTER) ONE; -NS (IVPB) CANCER CENTER 250 ML ONE; -NS IV 500 ML (CANCER CENTER) 500 ML ONE
[2018-10-11 15:06] LABS: CALCIUM 9.1 MG/DL (8.5-10.1); CREATININE SERUM 2.65 MG/DL (0.60-1.30); POTASSIUM 4.9 MMOL/L (3.6-5.0)
== END ==
LOC: LAB 14:32
PROVIDERS: ATTEND Internal Medicine Advanced Heart Failure and Transplant Cardiology
DX: K31.819 Angiodysplasia of stomach and duodenum without bleeding (principal)
CPT/HCPCS: 36415; 80048

== ENCOUNTER 2018-11-02 16:15 | Inpatient (IN) | payer MEDICARE ==
[2018-11-02] VITALS (13 sets, daily range): BP systolic 104–161; BP diastolic 45–79
[~2018-11-02] VITALS: Ht 162.6 cm; Wt 88.5 kg
--- OUTSIDE RECORDS SUMMARY | 2018-11-02 16:21 | XMS REPORT | Encounter Summary ---
Author Author [facility] Organization [facility] Address Unknown Phone Unavailable Care Team Providers Care Cloth Desizing Range Operator Chief Name Role Phone Carla Wilson MD PCP Naima Field MD Unavailable Winnie Jorge MD Unavailable Emiliano Rodriguez APRN,WOOL SCOURER-C 7 Encounter Details Care Team Description Date Type Department Emiliano Rodriguez APRN,WOOL SCOURER-C [address] [address] [phone] Arrived 10/29/2018 Hospital [facility] [address] [address] Social History Date Tobacco Use Types Packs/Day Years Used Quit: 09/28/1981 Former Smoker Cigarettes 2 10 Smokeless Tobacco: Never Used Alcohol Use Drinks/Week oz/Week Comments Yes Seldom Sex Assigned at Date Recorded Not on file Industry Job Start Date Occupation Not on file Not on file Not on file Travel End Travel History Travel Start No recent travel history available. documented as of this encounter Functional Status Date of Assessment Functional Status Response 09/30/2018 Does the patient have a hearing impairment: No 09/30/2018 Does the patient have a visual impairment: No 09/30/2018 Does the patient have impaired ambulation: No 09/30/2018 Does the patient have an activity of daily living No (ADL) impairment: 09/30/2018 Does the patient have an instrumental activity of No daily living (IADL) impairment: Date of Assessment Cognitive Status Response 09/30/2018 Does the patient have a cognitive impairment: No documented as of this encounter Plan of Treatment Not on filedocumented as of this encounter Procedures Comments Procedure Name Priority Date/Time Associated Diagnosis CBC AND DIFF STAT 10/29/2018 Chronic diastolic heart 12:23 PM CDT failure (HCC) BASIC METABOLIC PANEL STAT 10/29/2018 Chronic diastolic heart 12:23 PM CDT failure (HCC) documented in this encounter Results * CBC AND DIFF (10/29/2018 12:23 PM CDT) White Blood 7.2 4.5 - 11.0 K/UL [facility] Cells RBC 2.88 (L) 4.0 - 5.0 M/UL [facility] Hemoglobin 9.2 (L) 12.0 - 15.0 GM/DL [facility] Hematocrit 26.7 (L) 36 - 45 % [facility] MCV 92.7 80 - 100 FL [facility] MCH 31.8 26 - 34 PG [facility] MCHC 34.3 32.0 - 36.0 G/DL [facility] RDW 16.3 (H) 11 - 15 % [facility] Platelet Count 211 150 - 400 K/UL [facility] [...] - 2 % [facility] Absolute 5.10 1.8 - 7.0 K/UL [facility] Neutrophil Count Absolute Lymph 1.20 1.0 - 4.8 K/UL [facility] Count Absolute 0.50 0 - 0.80 K/UL [facility] Monocyte Count Absolute 0.40 0 - 0.45 K/UL [facility] Eosinophil Count Absolute 0.00 0 - 0.20 K/UL [facility] Basophil Count Specimen Blood Performing Organization Address City/State/Zipcode Phone Number [facility] [address] [place] [address] * BASIC METABOLIC PANEL (10/29/2018 12:23 PM CDT) Sodium 136 (L) 137 - 147 MMOL/L [facility] Potassium 3.8 3.5 - 5.1 MMOL/L [facility] Chloride 100 98 - 110 MMOL/L [facility] CO2 28 21 - 30 MMOL/L [facility] Anion Gap 8 3 - 12 [facility] Glucose 267 (H) 70 - 100 MG/DL [facility] Blood Urea 37 (H) 7 - 25 MG/DL [facility] Nitrogen Creatinine 2.68 (H) 0.4 - 1.00 MG/DL [facility] Calcium 9.9 8.5 - 10.6 MG/DL [facility] eGFR Non 18 (L) >60 mL/min [facility] Comment: [place] The eGFR is not validated for use in drug dosing adjustments.Continue to use estimated creatinine clearance per dosing reference text.Please contact the Clinical Pharmacist for questions. eGFR 22 (L) >60 mL/min [facility] [place] Comment: The eGFR is not validated for use in drug dosing adjustments.Continue to use estimated creatinine clearance per dosing reference text.Please contact the Clinical Pharmacist for questions. Specimen Blood Performing Organization Address City/State/Zipcode Phone Number [facility] [address] [place] [address] documented in this encounter Visit Diagnoses Diagnosis Chronic diastolic heart failure (HCC) Chronic diastolic heart failure documented in this encounter
--- OUTSIDE RECORDS SUMMARY | 2018-11-02 16:21 | XMS REPORT | Encounter Summary ---
Author Author [facility] Organization [facility] Address Unknown Phone Unavailable Care Team Providers Care Behavioral Health Assistant Name Role Phone Carla Wilson MD PCP Naima Field MD Unavailable Winnie Jorge MD Unavailable Emiliano Rodriguez APRN,TIRE CHANGER AIRCRAFT-C 7 Reason for Visit * Reason Comments Other GI referral Encounter Details Care Team Description Date Type Department Clary Martins RN Other (GI referral) 11/01/2018 Telephone [facility] [address] [facility] [address] [place] [address] Social History Date Tobacco Use Types Packs/Day [...] impairment: No documented as of this encounter Miscellaneous Notes * Telephone Encounter - Clary Martins RN - 11/01/2018 3:24 PM CDT GI referral put in for Dr. Baumann. Spoke with Deborah on the phone, she was oka y with the referral being placed. Will call us if they don't hear anything back in a week or so. documented in this encounter Plan of Treatment Not on filedocumented as of this encounter Visit Diagnoses Not on filedocumented in this encounter
--- OUTSIDE RECORDS SUMMARY | 2018-11-02 16:21 | XMS REPORT | Encounter Summary ---
Author Author [facility] Organization [facility] Address Unknown Phone Unavailable Care Team Providers Care Pigment Weigher Name Role Phone Carla Wilson MD PCP Naima Field MD Unavailable Winnie Jorge MD Unavailable Emiliano Rodriguez APRN,INDEPENDENT LIVING SPECIALIST-C 7 Reason for Visit * Reason Comments Labs Only Encounter Details Care Team Description Date Type Department Rina Ruano MA Labs Only 10/27/2018 Documentation [facility] [address] [place] [address] Social History Date Tobacco Use Types Packs/Day [...] Priority Date/Time Associated Diagnosis CBC AND DIFF Routine 10/25/2018 BNP (B-TYPE NATRIURETIC Routine 10/25/2018 PEPTI) COMPREHENSIVE METABOLIC Routine 10/25/2018 PANEL documented in this encounter Results * BNP (B-TYPE NATRIURETIC PEPTI) (10/25/2018) Pathologist [facility] B Type 363.2 (H) <100.0 OTHER OUTSIDE Natriuretic LAB Peptide BNP NT pro OTHER OUTSIDE LAB Specimen Blood - Blood Performing Organization Address City/[facility]/Zipcode Phone Number OTHER OUTSIDE LAB * COMPREHENSIVE METABOLIC PANEL (10/25/2018) Pathologist [facility] Sodium 138 OTHER OUTSIDE LAB Potassium 4.5 OTHER OUTSIDE LAB Chloride 106 OTHER OUTSIDE LAB CO2 23 OTHER OUTSIDE LAB Blood Urea 31 (H) 7 - 18 OTHER OUTSIDE Nitrogen LAB Creatinine 2.80 (H) 0.60 - 1.30 OTHER OUTSIDE LAB Glucose 140 (H) 70 - 105 OTHER OUTSIDE LAB Calcium 9.2 OTHER OUTSIDE LAB Total Protein 6.5 OTHER OUTSIDE LAB Total Bilirubin 0.5 OTHER OUTSIDE LAB Albumin 3.2 OTHER OUTSIDE LAB Alk Phosphatase 56 OTHER OUTSIDE LAB AST (SGOT) 16 OTHER OUTSIDE LAB ALT (SGPT) 8 OTHER OUTSIDE LAB eGFR Non 17 OTHER OUTSIDE LAB Dutch eGFR OTHER OUTSIDE Dutch LAB Anion Gap 9 OTHER OUTSIDE LAB Specimen Blood - Blood Performing Organization Address City/[facility] Phone Number OTHER OUTSIDE LAB * CBC AND DIFF (10/25/2018) Pathologist [facility] White Blood 5.4 OTHER OUTSIDE Cells LAB RBC 2.56 (L) 4.35 - 5.85 OTHER OUTSIDE LAB Hemoglobin 7.8 (L) 11.5 - 16.0 OTHER OUTSIDE LAB Hematocrit 24 (L) 35 - 52 OTHER OUTSIDE LAB MCV 93 OTHER OUTSIDE LAB MCH 30 OTHER OUTSIDE LAB MCHC 33 OTHER OUTSIDE LAB Platelet Count 152 OTHER OUTSIDE LAB MPV 10.0 OTHER OUTSIDE LAB RDW 15.1 (H) 10.0 - 14.5 OTHER OUTSIDE LAB Neutrophils OTHER OUTSIDE LAB Absolute OTHER OUTSIDE Neutrophil LAB Count Lymphocytes OTHER OUTSIDE LAB Absolute Lymph OTHER OUTSIDE Count LAB Monocytes OTHER OUTSIDE LAB Absolute OTHER OUTSIDE Monocyte Count LAB Eosinophil OTHER OUTSIDE LAB Absolute OTHER OUTSIDE Eosinophil LAB Count Basophils OTHER OUTSIDE LAB Absolute OTHER OUTSIDE Basophil Count LAB Atypical Lym OTHER OUTSIDE LAB Metamyelocyte OTHER OUTSIDE LAB Myelocyte OTHER OUTSIDE LAB Promyelocyte OTHER OUTSIDE LAB Blast OTHER OUTSIDE LAB RBC Morph OTHER OUTSIDE LAB WBC Morphology OTHER OUTSIDE LAB Specimen Blood - Blood Narrative Performed At Performing Organization Address City/State/Zipcode Phone Number OTHER OUTSIDE LAB documented in this encounter Visit Diagnoses Not on filedocumented in this encounter
--- OUTSIDE RECORDS SUMMARY | 2018-11-02 16:21 | XMS REPORT | Encounter Summary ---
Author Author [facility] Organization [facility] Address Unknown Phone Unavailable Care Team Providers Care Staffing Clerk Name Role Phone Carla Wilson MD PCP Naima Field MD Unavailable Winnie Jorge MD Unavailable Emiliano Rodriguez APRN,PATTERN DRUM MAKER-C 7 Reason for Visit * Reason Comments Cardiac Eval PAF; CAD; HLD; CHRONIC DIASTOLIC HEART FAILURE. Weight Loss Encounter Details Care Team Description Date Type Department Emiliano Rodriguez APRN,PATTERN DRUM MAKER-C [address] [address] [phone] Cardiac Eval (PAF; CAD; HLD; CHRONIC DIASTOLIC HEART FAILURE.); Weight Loss 10/29/2018 Office Visit [facility] [address] [address] Social History Date Tobacco Use Types Packs/Day [...] history available. documented as of this encounter Last Filed Vital Signs Time Taken Vital Sign Reading 10/29/2018 10:27 AM CDT Blood Pressure 130/48 10/29/2018 10:27 AM CDT Pulse 70 - Temperature - - Respiratory Rate - 10/29/2018 10:27 AM CDT Oxygen Saturation 97% - Inhaled Oxygen - Concentration 10/29/2018 10:27 AM CDT Weight 85.2 kg (187 lb 12.8 oz) 10/29/2018 10:27 AM CDT Height 162.6 cm (5' 4") 10/29/2018 10:27 AM CDT Body Mass Index 32.24 documented in this encounter Functional Status Date of [...] impairment: No documented as of this encounter Patient Instructions * Patient Instructions* Emiliano Rodriguez APRN,PATTERN DRUM MAKER-C - 10/29/2018 10:30 AM CDT Your fluid levels are stable today. We are going to decrease your Bumex dose. Yo ur hemoglobin is stable today. We will call you Thursday/Thursday to see how you ar e feeling. Keep trying to get as much nutrition as you can to improve your stren gth. We will send message to the Liver/GI team to get you seen by them sooner. Your instructions today include: 1. Medications: Decrease your Bumex to 1 mg daily. 2. Labs: your labs today are stable, creatinine is 2.68, Hemoglobin is 9.2. 3. Next follow up appointment in [address] Sneed. 4. Call for any worsening symptoms of shortness of breath, swelling, sudden axel ght gain, lightheadedness, heart racing or chest pain. 5. Remember to weigh your self daily and call for weight increase greater than 3 pounds overnight or 5 pounds in one week. 6. It is very helpful for us to treat you if you keep a log of your weights and blood pressures, and bring with you to your next clinic visit. 7. It is also very helpful for you to bring your medications with you to your ne clinic visit. 8. Taking your medications as directed helps keep you out of the hospital: pleyessenia solorio call if you have concerns about the side effects, cost or refills. 9. Follow low sodium dietary restriction- 2000 mg daily. Thank you for coming to [facility]. Emiliano Rodriguez APRN Nurse Practitioner Tracie Stuart RN [phone] documented in this encounter Progress Notes * Emiliano Rodriguez APRN, FNP-C - 10/29/2018 10:30 AM CDT Date of Service: 10/29/2018 Deborah Fields is a 63 y.o. female. HPI Ms. Fields was seen today in heart failure clinic by Dr Sneed and myself for routine follow-up visit accompanied by her spouse. She was last seen in [facility] by Dr. Sneed on 10/08/18. At that time she reported having melena wit h transfusion requirement. She was instructed to decrease her digoxin dose to e very other day and that she should have IV Lasix after she has infusions. Ms. Colt calderón has a history of diastolic heart failure. Today Ms. Fields reports she has not been feeling well since she was last seen b y Dr. Sneed. She has continued to require frequent blood transfusions at her local facility in [place], [place]. She states so far for the year 2018 she has received a total of 65 transfusions for her persistent low blood count. Denies having shortness of breath, no cough. Reports having occasional chest pain wh ich is sometimes sharp versus dull in nature. She states the pain improves with out interventions. Describes having palpitations, also reports dizziness and li ghtheadedness. Denies lower extremity edema, reports having abdominal distentio n. She has noticed ecchymosis to her abdomen, describes discomfort to the midli ne upper epigastric area. She continues to have persistent nausea and vomiting and describes poor appetite. She sleeps using 2 pillows, denies PND. She repor ts this most recent week she had one bright red bloody stool, followed by severa l black tarry stools. She has lost approximately 18 pounds since she was last s een a month ago. She has her blood checked every Thursday in [place]; states i f her hemoglobin is less than 7 they are transfusing her. She is tearful today, verbalizing her frustrations related to her current health condition. Past medical history includes CAD, HTN, paroxysmal A. fib, HLD, NSTEMI, DM 2, GI bleed, anemia, obesity, Long's esophagus, GAVE, hepatitis B, HFpEF. Vitals: 10/29/18 1027 BP: 130/48 Pulse: 70 SpO2: 97% Weight: 85.2 kg (187 lb 12.8 oz) Height: 1.626 m (5' 4") Body mass index is 32.24 kg/m. Review of Systems Constitution: Positive for decreased appetite and weight loss. Patient reports weight loss of 2 lbs in the last 48 hours. HENT: Negative. Eyes: Positive for pain. Cardiovascular: Positive for chest pain, claudication, dyspnea on exertion, leg swelling and palpitations. Respiratory: Positive for shortness of breath. Endocrine: Positive for cold intolerance and polyuria. Hematologic/Lymphatic: Bruises/bleeds easily. Skin: Positive for unusual hair distribution. Musculoskeletal: Positive for arthritis, back pain, joint pain and muscle weakne ss. Gastrointestinal: Positive for bloating, abdominal pain, anorexia, hematochezia, melena, nausea and vomiting. Patient reports nausea and vomiting x 3 days. Genitourinary: Positive for bladder incontinence and flank pain. Neurological: Positive for difficulty with concentration, excessive daytime slee piness, dizziness, light-headedness, loss of balance and vertigo. Psychiatric/Behavioral: The patient is nervous/anxious. Allergic/Immunologic: Positive for environmental allergies. Physical Exam General Appearance: obese female, in no acute distress Skin: warm, dry Eyes: conjunctivae and lids normal, pupils are equal and round Teeth/Gums/Palate: dentition unremarkable, no lesions Lips & Oral Mucosa: no pallor or cyanosis Neck Veins: JVP 5 cm, no HJR Chest Inspection: chest is normal in appearance Respiratory Effort: breathing comfortably, no respiratory distress Auscultation: lungs clear to auscultation, no rales or rhonchi, no wheezing Cardiac Rhythm: regular rhythm and normal rate Cardiac Auscultation: S1, S2 normal, no rub, no definite S3 or S4 Murmurs: no murmur Peripheral Circulation: normal peripheral circulation Radial Arteries: normal symmetric radial pulses Pedal Pulses: normal symmetric pedal pulses Lower Extremity Edema: no lower extremity edema Abdominal Exam: soft, non-tender, no masses, bowel sounds normal Gait & Station: walks with walker Orientation: oriented to time, place and person Affect & Mood: appropriate and sustained affect Language and Memory: patient responsive and seems to comprehend information Neurologic Exam: neurological assessment grossly intact Vital signs were reviewed Cardiovascular Studies None today Problems Addressed Today Encounter Diagnoses Name Primary? HFpEF Yes CKD GIB with anemia Assessment and Plan 1. HFpEF. Ms. Fields today presents with NYHA functional class II-III and AHA stage C symptoms. Her medications include Lopressor 37.5 mg twice daily, digoxi n 125 mcg every other day, diuretic is Bumex 2 mg daily. These are guideline di rected medical therapies for her heart failure. Today on exam she appears to be mildly hypovolemic with approximately 18 pound weight loss over the last month. After reviewing her labs checked today, instructed patient to decrease her Bumex to 1 mg daily. Encouraged her to continue trying to drink at least 64 ounces of fluid per day and eat healthy diet as tolerated. 2. CKD. Labs checked today show creatinine of 2.68. Recently her creatinine h as been quite labile, ranging from 1.84-3.7. Instructed to decrease her diureti c dose from 2 mg Bumex down to 1 mg daily. We will plan to recheck labs on at her outside local facility. 3. Anemia with chronic GI bleed. Ms. Fields has been struggling for several mo nths now with persistent anemia. She has labs checked every Thursday at her local facility and is transfuse if her hemoglobin is below 7. CBC checked today shows H&H of 9.2/26.7. She reports having bright red bloody stools earlier this week which have now transitioned to black and tarry stools. She has lost 18 lbs in 1 month; reports persistent nausea/vomiting with poor appetite. She has been hospitalized in the past with extensive GI work up. Previously seen by hepatology however will not be seen by them again until 02/17/19. She also follows with outside [facility]. She has had multiple colonoscopies and EGD completed, most recently 09/07/18. EGD showed small esophageal varices, mild portal hypertensive gastropathy, gastric antral vascular ectasia without bleeding. Colonoscopy showed polyps; 2 polyps were resected and clip was placed in the sigmoid colon, there was friability with contact bleeding. Will work to try to have her seen by hepatology sooner than her currently scheduled appointment in February as she seems to have progressed with her anemia and is requiring more blood transfusions than before. 4. Follow-up. Instructed patient to return to clinic in approximately 1 month to be seen for close follow-up by Dr. Sneed. Will plan to send message t o GI/hepatology team to have patient evaluated sooner than her currently schedul ed appointment in February. Ms. Fields and her spouse are in agreement and st ate understanding of this plan. Please see AVS for full patient education. Education/care coordination and counseling time spent: 30 minutes of 35 minute v isit. Topics included HF disease process, treatment options, treatment risks an d benefits, medication instructions, medication interactions, daily weight monit oring, sodium restriction, understanding of HF symptoms, awareness of when and w manuela call, and when to schedule next office visit. Thank you for the opportunity to participate in this pleasant patient's care. Pl ease contact me with any concerns or questions. Emiliano Rodriguez APRN Pager #[phone] Collaborating MD:JAYSHREE Current Medications (including today's revisions) bumetanide (BUMEX) 1 mg tablet Take one tablet by mouth daily. cetirizine (ZYRTEC) 10 mg tablet Take 10 mg by mouth every morning. clobetasol (TEMOVATE) 0.05 % topical cream Apply to affected area twice bree y as needed digoxin (LANOXIN) 125 mcg tablet Take one tablet by mouth every 48 hours. diphenhydrAMINE (BENADRYL ALLERGY) 25 mg tablet Take 25 mg by mouth every 6 hours as needed for Sleep. folic acid (FOLVITE) 1 mg tablet Take 1 mg by mouth daily. dfjqklut-ahomujfrh-M-manganese 500-400-2-0.33 mg cap Take 500 mg by mouth tw ice daily. insulin aspart U-100 (NOVOLOG) 100 unit/mL injection Inject four Units under the skin three times daily with meals. insulin NPH (HUMULIN N NPH U-100 INSULIN) 100 unit/mL injection Inject fourt een Units under the skin every morning. Insulin Syringe-Needle U-100 (BD INSULIN SYRINGE ULTRA-FINE) 0.3 mL 31 gauge x 5/16 syrg Use four times daily with Insulin levothyroxine (SYNTHROID) 175 mcg tablet Take 175 mcg by mouth every 48 hour s. magnesium oxide (MAG-OX) 400 mg (241.3 mg magnesium) tablet Take 400 mg by m outh twice daily. metoprolol tartrate (LOPRESSOR) 37.5 mg tablet Take one tablet by mouth twic e daily. nitroglycerin (NITROSTAT) 0.[address] 0.4 mg under tongue every 5 mi nutes as needed for Chest Pain. Max of 3 tablets, call 911. omeprazole DR(+) (PRILOSEC) 40 mg capsule Take 40 mg by mouth twice daily. ondansetron (ZOFRAN) 8 mg tablet Take 8 mg by mouth every 8 hours as needed for Nausea or Vomiting. pramoxine/zinc oxide (TRONOLANE) 1% / 5% topical cream Insert or Apply to r ectal area as directed daily as needed (For Hemorrhoids). tiZANidine (ZANAFLEX) 4 mg tablet Take 4 mg by mouth at bedtime daily. traMADol (ULTRAM) 50 mg tablet Take one tablet by mouth every 6 hours as nee ded for Pain. documented in this encounter Plan of Treatment Not on filedocumented as of this encounter Results * BASIC METABOLIC PANEL (10/29/2018 12:23 PM CDT) [facility] Signature Sodium 136 (L) 137 - 147 MMOL/L [...] (L) >60 mL/min [facility] Comment: [place] The eGFR is not validated for use in drug dosing adjustments.Continue to use estimated creatinine clearance per dosing reference text.Please contact the Clinical Pharmacist for questions. eGFR 22 (L) >60 mL/min [facility] [place] Comment: The eGFR is not validated for use in drug dosing adjustments.Continue to use estimated creatinine clearance per dosing reference text.Please contact the Clinical Pharmacist for questions. Specimen Blood Performing Organization Address City/State/Zipcode Phone Number [facility] [address] [place] [address] * CBC AND DIFF (10/29/2018 12:23 PM [...] City/State/Zipcode Phone Number [facility] [address] [place] [address] documented in this encounter Visit Diagnoses Diagnosis HFpEF - Primary Chronic diastolic heart failure CKD Chronic kidney disease, Stage IV (severe) GIB with anemia Hemorrhage of gastrointestinal tract, unspecified documented in this encounter
--- OUTSIDE RECORDS SUMMARY | 2018-11-02 16:21 | XMS REPORT | Clinical Summary ---
Author Author [facility] Organization [facility] Address Unknown Phone Unavailable Care Team Providers Care Hydroelectric Machinery Mechanic Name Role Phone Carla Wilson MD PCP Naima Field MD Unavailable Winnie Jorge MD Unavailable Emiliano Rodriguez APRN,CLINICAL 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-C 7 Source Comments Some departments are not documenting in the electronic medical record. If you d o not see the information that you expected, contact Release of Information in [facility] Information Management department at [phone] for further assistan ce in locating additional records.[facility] Allergies Comments Active Allergy Reactions Severity Noted Date Cefadroxil NAUSEA AND Low 09/28/2017 VOMITING Oxycodone HIVES, Medium 07/06/2018 ITCHING Pravastatin NAUSEA AND Low 09/28/2017 VOMITING Simvastatin NAUSEA AND Low 09/28/2017 VOMITING Sulfa (Sulfonamide RASH Medium 11/11/2017 Antibiotics) Medications End Date Status Medication Sig Dispensed Refills Start Date Active folic acid (FOLVITE) 1 mg Take [...] by 0 tablet mouth every morning. Active traMADol (ULTRAM) 50 mg Take one [...] directed daily as needed (For Hemorrhoids). Active icwnwmxf-ccemljnny-H-doug Take 500 mg 0 anese 500-400-2-0.33 mg by mouth cap twice daily. Active magnesium oxide (MAG-OX) Take 400 mg 0 400 mg (241.3 mg by mouth magnesium) tablet twice daily. Active metoprolol tartrate Take one 180 tablet 3 (LOPRESSOR) 37.5 mg tablet by 9 tablet mouth twice daily. Active levothyroxine (SYNTHROID) Take 175 mcg 0 175 mcg tablet by mouth every 48 hours. Active digoxin (LANOXIN) 125 mcg Take one 90 tablet 1 tablet tablet by 9 mouth every 48 hours. Active bumetanide (BUMEX) 1 mg Take one 60 tablet 2 tablet tablet by 9 mouth daily. 10/08/2018 Discontinued digoxin (LANOXIN) 125 mcg Take 125 mcg 0 tablet by mouth daily. 10/29/2018 Discontinued bumetanide (BUMEX) 1 mg Take two 60 tablet 2 04/18/201 tablet tablets by 9 mouth daily. Active Problems Problem Noted Date CKD 09/30/2018 Morbid obesity 06/01/2018 Acute on chronic diastolic heart failure due to coronary artery disease 03/31/2018 Chronic diastolic heart failure 03/31/2018 Long's esophagus 03/30/2018 Left leg cellulitis 03/29/2018 Pleural effusion on left 03/26/2018 Essential hypertension 02/23/2018 DELROY (acute kidney injury) 02/18/2018 CAD (coronary artery disease), [place] coronary artery 02/16/2018 Overview: 02/16/18: CABG x4 [...] diabetes mellitus with circulatory disorder, without long-term 02/12/2018 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 PAF (paroxysmal atrial fibrillation) 02/12/2018 Overview: 02/16/18: Bilateral modified CryoMaze procedure (pulmonary vein isolation) & Suture ligation of left atrial appendage at time of CABG. 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 anemia 11/13/2017 Overview: Added automatically from request for surgery [id number] Resolved Problems Problem Noted Date Resolved Date [...] Encounters Care Team Description Date Type Specialty Clary Martins RN Other (GI referral) 11/01/2018 Telephone Cardiology Clary Martins RN Chronic gastrointestinal bleeding (Primary Dx) 11/01/2018 Orders Only Cardiology Emiliano Rodriguez APRN, FNP-C Arrived 10/29/2018 Hospital Cardiology Encounter Emiliano Rodriguez APRN, FNP-C Cardiac Eval (PAF; CAD; HLD; CHRONIC DIASTOLIC HEART FAILURE.); Weight Loss 10/29/2018 Office Visit Cardiology Rina Ruano MA Labs Only 10/27/2018 Documentation Cardiology Clary Martins RN Lab Results 10/13/2018 Telephone Cardiology Clary Martins RN Labs Only 10/13/2018 Documentation Cardiology Felisa Sneed MD CAD (follow up) 10/08/2018 Office Visit Cardiology Clary Martins RN Labs Only 10/07/2018 Documentation Cardiology Clary Martins RN Lab Request 10/07/2018 Telephone Cardiology Janell Del Cid 10/07/2018 Documentation Cardiology Oliverio Mcneil LPN Lab Request 10/04/2018 Telephone Cardiology Clary Martins RN Lab Results 10/01/2018 Documentation Cardiology Emiliano Rodriguez APRN, FNP-C Follow Up; Medications Only; Heart Failure; Shortness of Breath; Leg Swelling 09/30/2018 Office Visit Cardiology Emiliano Rodriguez APRN, FNP-C Chronic diastolic heart failure (HCC) (Primary Dx) 09/29/2018 Orders Only Cardiology Clary Martins RN Lab Results (BMP 09/22/18) 09/27/2018 Documentation Cardiology Estrella Chauhan LPN Weight Gain 09/23/2018 Telephone Cardiology Lynette Diana MD Other 09/20/2018 Telephone Hepatology Lynette Diana MD Follow-up Phone Call 09/17/2018 Telephone Hepatology Pat Combs, [place] Labs Only 09/17/2018 Documentation Cardiology Felisa Sneed MD Medication Refill 09/16/2018 Refill Cardiology Oliverio Mcneil LPN Weight Gain 09/08/2018 Telephone Cardiology Lynette Diana MD COLONOSCOPY DIAGNOSTIC WITH SPECIMEN COLLECTION BY BRUSHING/ WASHING - FLEXIBLE 09/07/2018 Surgery Mona Tapia, PRIMO 09/07/2018 Anesthesia Event Lynette Diana MD GAVE (gastric antral vascular ectasia) 09/07/2018 Hospital Encounter Yan Zavaleta Elevated liver enzymes 09/07/2018 Orders Only Hepatology Lynette Diana MD Elevated liver enzymes (Primary Dx) 09/07/2018 Orders Only Hepatology Lynette Diana MD Appointment Question 09/03/2018 Telephone Hepatology Lynette Diana MD Other (call to [place]) 09/02/2018 Telephone Hepatology Rina Ruano MA Labs Only 08/27/2018 Documentation Cardiology Felisa Sneed MD CHF (follow up) 08/24/2018 Office Visit Cardiology from Last 3 Months Immunizations Name Dates [...] 130/48 10/29/2018 10:27 AM CDT Pulse 70 09/07/2018 9:54 AM CDT Temperature 36.3 C (97.3 F) 07/01/2018 1:56 PM ENERGY RISK MANAGEMENT ANALYST Respiratory Rate 18 10/29/2018 10:27 AM CDT Oxygen Saturation 97% - Inhaled Oxygen - Concentration 10/29/2018 10:27 AM CDT Weight 85.2 kg (187 lb 12.8 oz) 10/29/2018 10:27 AM CDT Height 162.6 cm (5' 4") 10/29/2018 10:27 AM CDT Body Mass Index 32.24 Plan of Treatment Health Maintenance Due Date Last Done Comments PHYSICAL (COMPREHENSIVE) 1964 EXAM DILATED EYE EXAM 1975 DTAP/TDAP VACCINES (1 - 1975 Tdap) FOOT EXAM 1975 MICROALBUMIN 1975 PNEUMONIA VACCINE (DM) 1975 CERVICAL CANCER SCREENING 1987 BREAST CANCER SCREENING 1997 SHINGLES RECOMBINANT 2007 VACCINE (1 of 2) HBA1C 08/12/2018 02/12/2018 INFLUENZA VACCINE 03/15/2019 03/15/2017 (Previously completed), 04/09/2000, 03/27/1999, Additional history exists COLORECTAL CANCER 09/07/2028 09/07/2018, 04/07/2018 SCREENING HEPATITIS C SCREENING Completed 02/15/2018 HIV SCREENING Completed 04/29/2018 Implants Device Identifier Shelf Expiration Date Model / Serial / Lot Implanted Type Area Manufactur er [id number] / [id number] / [id number] Plate Acutie Sternal Closure - N/A: Sternum ACT [id number] INNOVATION Implanted: Qty: 2 on 02/16/2018 by Lance Conte MD [id number] / [id number] / [id number] Plate Acutie Sternal Closure - N/A: Sternum ACT [id number] INNOVATION Implanted: Qty: 1 on 02/16/2018 by Lance Conte MD Procedures Comments Procedure Name Priority Date/Time Associated Diagnosis CBC AND DIFF STAT 10/29/2018 Chronic diastolic heart 12:23 PM CDT failure (HCC) BASIC METABOLIC PANEL STAT 10/29/2018 Chronic diastolic heart 12:23 PM CDT failure (HCC) BNP (B-TYPE NATRIURETIC Routine 10/25/2018 PEPTI) COMPREHENSIVE METABOLIC Routine 10/25/2018 PANEL CBC AND DIFF Routine 10/25/2018 BASIC METABOLIC PANEL Routine 10/11/2018 CBC Routine 10/11/2018 BASIC METABOLIC PANEL STAT 10/04/2018 Chronic diastolic heart failure (HCC) COMPREHENSIVE METABOLIC Routine 09/27/2018 PANEL CBC Routine 09/27/2018 BASIC METABOLIC PANEL Routine 09/22/2018 BASIC METABOLIC PANEL Routine 09/17/2018 Chronic diastolic heart failure (HCC) SURGICAL PATHOLOGY 09/07/2018 9:54 AM CDT COLONOSCOPY 09/07/2018 8:12 AM CDT EGD REPORT 09/07/2018 8:01 AM CDT COLONOSCOPY WITH SNARE 09/07/2018 GAVE (gastric antral REMOVAL TUMOR/ POLYP/ 8:00 AM CDT vascular ectasia) OTHER LESION Cirrhosis of liver without ascites, unspecified hepatic cirrhosis type (HCC) ESOPHAGOGASTRODUODENOSCOP 09/07/2018 GAVE (gastric antral Y WITH ABLATION TUMOR/ 8:00 AM CDT vascular ectasia) POLYP/ OTHER LESION - Cirrhosis of liver FLEXIBLE without ascites, unspecified hepatic cirrhosis type (HCC) COLONOSCOPY DIAGNOSTIC 09/07/2018 GAVE (gastric antral WITH SPECIMEN COLLECTION 8:00 AM CDT vascular ectasia) BY BRUSHING/ WASHING - Cirrhosis of liver FLEXIBLE without ascites, unspecified hepatic cirrhosis type (HCC) POC GLUCOSE 09/07/2018 7:39 AM CDT TELEMETRY STRIPS-SCAN 09/07/2018 12:00 AM CDT CBC AND DIFF Routine 09/06/2018 Elevated liver enzymes 10:30 AM CDT COMPREHENSIVE METABOLIC Routine 09/06/2018 Elevated liver enzymes PANEL 10:30 AM CDT BASIC METABOLIC PANEL Routine 08/23/2018 TSH WITH FREE T4 REFLEX Routine 08/23/2018 CBC AND DIFF Routine 08/23/2018 BASIC METABOLIC PANEL Routine 08/17/2018 from Last 3 Months Results * CBC AND DIFF (10/29/2018 12:23 PM CDT) Only the most recent of 4 results within the time period is included. White Blood 7.2 4.5 - 11.0 K/UL [...] City/State/Zipcode Phone Number [facility] [address] [place] [place] [address] * BASIC METABOLIC PANEL (10/29/2018 12:23 PM CDT) Only the most recent of 7 results [...] (L) >60 mL/min [facility] Comment: [place] The eGFR is not validated for use in drug dosing adjustments.Continue to use estimated creatinine clearance per dosing reference text.Please contact the Clinical Pharmacist for questions. eGFR 22 (L) >60 mL/min [facility] [place] Comment: The eGFR is not validated for use in drug dosing adjustments.Continue to use estimated creatinine clearance per dosing reference text.Please contact the Clinical Pharmacist for questions. Specimen Blood Performing Organization Address City/State/Zipcode Phone Number [facility] [address] [place] [address] * BNP (B-TYPE NATRIURETIC PEPTI) (10/25/2018) B Type 363.2 (H) <100.0 OTHER OUTSIDE Natriuretic LAB Peptide BNP NT pro OTHER OUTSIDE LAB Specimen Blood - Blood Performing Organization Address City/[facility]/Zipcode Phone Number OTHER OUTSIDE LAB * COMPREHENSIVE METABOLIC PANEL (10/25/2018) Only the most recent of 3 results within the time period is included. Sodium 138 OTHER OUTSIDE LAB Potassium 4.5 [...] LAB eGFR Non 17 OTHER OUTSIDE LAB [place] eGFR OTHER OUTSIDE Norwegian LAB Anion Gap 9 OTHER OUTSIDE LAB Specimen Blood - Blood Performing Organization Address City/State/Zipcode Phone Number OTHER OUTSIDE LAB * CBC (10/11/2018) Only the most recent of 2 results within the time period is included. White Blood 4.6 OTHER OUTSIDE Cells LAB RBC 2.4 OTHER OUTSIDE LAB Hemoglobin 7.1 OTHER OUTSIDE LAB Hematocrit 23 OTHER OUTSIDE LAB MCV 95 OTHER OUTSIDE LAB MCH 30 OTHER OUTSIDE LAB MCHC 31 OTHER OUTSIDE LAB Platelet Count 140 OTHER OUTSIDE LAB MPV 10.5 OTHER OUTSIDE LAB RDW 16.8 OTHER OUTSIDE LAB Specimen Blood - Blood Performing Organization Address City/State/Zipcode Phone Number OTHER OUTSIDE LAB * SURGICAL PATHOLOGY (09/07/2018 9:54 AM CDT) PATHOLOGY [facility] [email or web address] Department of Pathology and Laboratory Medicine [address] [place] [address] Surgical Pathology Office:[phone] :[phone] SURGICAL PATHOLOGY REPORT NAME: DEBORAH FIELDS SURG PATH #: [id number] MR #: [id number] SPECIMEN CLASS: SR BILLING #: [id number] ALT ID #:LOCATION: [facility] DATE OF PROCEDURE: 09/07/2018 AGE:63 SEX: F DATE RECEIVED: 09/07/2018 : 1955TIME RECEIVED:09:54 PHYSICIAN: LYNETTE ROBLEDO DATE OF REPORT: 09/08/2018 COPY TO:DATE OF PRINTIN09/08/2018 ############################## ############################## ############ Final Diagnosis: A. Colonic mucosa, descending colon polyp, biopsy: Tubular adenoma. B. Colonic mucosa, sigmoid colon polyp, biopsy: Tubular adenoma. Attestation: By this signature, I attest that I have personally formulated the final interpretation expressed in this report and that the above diagnosis is based upon my examination of the slides and/or other material indicated in this report. +++ +++ dick/09/08/2018 ############################## ############################## ############ Material Received: A: descending colon polyp B: sigmoid colon polyp History: 63-year-old male history of gastric antral vascular ectasia, cirrhosis of liver without ascites, unspecified hepatic cirrhosis type. Gross Description: A. Received in formalin labeled "descending colon polyp" is a 0.2 x 0.2 x 0.2 cm collins-brown soft tissue fragment. The specimen is entirely submitted in cassette A1. (lmt) B. Received in formalin labeled "sigmoid colon polyp" is a 0.5 x 0.3 x 0.2 cm collins-brown soft tissue fragment. The specimen is entirely submitted in cassette B1. (lmt) /09/07/2018 Performing Organization Address City/[facility] Phone Number [facility] [address] [place] [address] * COLONOSCOPY (09/07/2018 8:12 AM CDT) Provation Patient Name: Donnie CASTILLO OTHER Report Procedure Date: 09/07/2018 8:[address] [facility]: [id number] Date of : 1955 Gender: Female Attending Physician: Lynette Diana MD Procedure: Colonoscop y Indications: Suspected adenomatous polyps in the colon-incomplete colonoscopy 03/2018 Providers: Lynette Diana MD (Doctor), Antolin Erazo (Fellow), Mariana Suarez RN (Nurse), Chapincito Hameed (Store Team Leader) Referring Physician: Naima Field Medications: Propofol per Anesthesia Complications: No immediate complications. Procedure: Pre-Anesthesia Assessment: [...] The patient tolerated the procedure well. The ileocecal valve, appendiceal orifice, and rectum were photographed. The quality of the bowel preparation was adequate to identify polyps. Findings: The digital rectal exam was normal. A 8 mm polyp was found in the ascending colon. The polyp was semi-pedunculated. The polyp was removed with a cold snare. Resection was complete, but the polyp tissue was not retrieved. A 5 mm polyp was found in the ascending colon. The polyp was semi-sessile. The polyp was removed with a cold snare. Resection was complete, but the polyp tissue was not retrieved. A 3 mm polyp was found in the descending colon. The polyp was sessile. Biopsies were taken with a cold forceps for histology. A 6 mm polyp was found in the sigmoid colon. The polyp was semi-sessile. The polyp was removed with a cold snare. Resection and retrieval were complete. To stop active bleeding, one hemostatic clip was successfully placed. There was no bleeding at the end of the procedure. Semi-liquid stool was found in the entire colon, making visualization difficult. A diffuse area of severely friable mucosa with contact bleeding was found in the rectum from barotrauma. Rectal varices. Retroflexion not performed. Impression: - One 8 mm polyp in the ascending colon, removed with a cold snare. Complete resection. Polyp tissue not retrieved. - One 5 mm polyp in the ascending colon, removed with a cold snare. Complete resection. Polyp tissue not retrieved. - One 3 mm polyp in the descending colon. Biopsied. - One 6 mm polyp in the sigmoid colon, removed with a cold snare. Resected and retrieved. Clip was placed to stop bleeding. - Stool in the entire examined colon. - Portal colopathy. - Friability with contact bleeding in the rectum from barotrauma. - Rectal varices. - Retroflexion not performed. Estimated Blood Loss: Estimated blood loss was minimal. Recommendation: - Patient has a contact number available for emergencies. The signs and symptoms of potential delayed complications were discussed with the patient. Return to normal activities tomorrow. Written discharge instructions were provided to the patient. - Resume previous diet. - Continue present medications. - Await pathology - Repeat colonoscopy in 3 years for surveillance. Scope In: 8:25:59 AM Scope Out: 9:36:26 AM Scope Withdrawal Time 1 hour 2 minutes 9 seconds Total Procedure Duration Time 1 hour 10 minutes 27 seconds Procedure Code(s): --- Professional --- 24580, GC, Colonoscopy, flexible; with removal of tumor(s), polyp(s), or other lesion(s) by snare technique 28395, 59, Colonoscopy, flexible; with biopsy, single or multiple Diagnosis Code(s): --- Professional --- D12.2, Benign neoplasm of ascending colon D12.4, Benign neoplasm of descending colon D12.5, Benign neoplasm of sigmoid colon K62.5, Hemorrhage of anus and rectum CPT copyright 2017 [employer]. All rights reserved. The codes documented in this report are preliminary and upon bowling alley floors installer review may be revised to meet current compliance requirements. Attending Participation: I was present and participated during the entire procedure, including non-dempsey portions. MD Lynette Mercado MD 09/07/2018 9:49:11 AM The attending physician has electronically signed and finalized this document. Antolin Erazo, Number of Addenda: 0 Note Initiated On: 09/07/2018 8:12 AM Performing Organization Address City/State/Zipcode Phone Number [facility] OTHER RESULTS * EGD REPORT (09/07/2018 8:01 AM CDT) Provation Patient Name: Donnie CASTILLO OTHER Report Procedure Date: 09/07/2018 8:[address] [facility]: [id number] Date of : 1955 Gender: Female Attending Physician: Lynette Diana MD Procedure: Upper GI endoscopy Indications: Hx of chronic blood loss 2/2 PHG, GAVE. Requested re look. Providers: Lynette Diana MD (Doctor), Antolin Erazo (Fellow), Mariana Suarez RN (Nurse), Chapincito Hameed (Store Team Leader) Referring Physician: Naima Field Medications: Propofol per Anesthesia Complications: No immediate complications. Procedure: Pre-Anesthesia Assessment: [...] oxygen saturations were monitored continuously. The Endoscope was introduced through the mouth, and advanced to the second part of duodenum. The upper GI endoscopy was accomplished without difficulty. The patient tolerated the procedure well. Findings: The Z-line was irregular. Difficult to appreciate possible Long's wtih EV. Small (< 5 mm) varices were found in the distal esophagus. Mild portal hypertensive gastropathy was found in the entire examined stomach. Although mild appearing, contact bleeding was observed. Mild gastric antral vascular ectasia without bleeding was present in the gastric antrum. No APC performed due to appearance. The cardia and gastric fundus were normal on retroflexion. There is no endoscopic evidence of varices in the entire examined stomach. The examined duodenum was normal. Impression: - Z-line irregular, previous possible underlying Long's described, difficult to appreciate. No biopsies. - Small (< 5 mm) esophageal varices. - Mild portal hypertensive gastropathy. - Gastric antral vascular ectasia without bleeding. No APC performed. - Normal examined duodenum. - No specimens collected. Estimated Blood Loss: Estimated blood loss: none. Recommendation: - Patient has a contact number available for emergencies. The signs and symptoms of potential delayed complications were discussed with the patient. Return to normal activities tomorrow. Written discharge instructions were provided to the patient. - Resume previous diet. - Continue present medications. - Repeat upper endoscopy in 1-2 year for variceal surveillance. - Return to liver clinic as previously scheduled. - Proceed with colonoscopy today. Scope In: 8:07:18 AM Scope Out: 8:12:47 AM Total Procedure Duration Time 0 hours 5 minutes 29 seconds Procedure Code(s): --- Professional --- 77857, GC, Esophagogastroduodenoscopy, flexible, transoral; diagnostic, including collection of specimen(s) by brushing or washing, when performed (separate procedure) Diagnosis Code(s): --- Professional --- K22.8, Other specified diseases of esophagus I85.00, Esophageal varices without bleeding K76.6, Portal hypertension K31.89, Other diseases of stomach and duodenum K31.819, Angiodysplasia of stomach and duodenum without bleeding CPT copyright 2017 [employer]. All rights reserved. The codes documented in this report are preliminary and upon bowling alley floors installer review may be revised to meet current compliance requirements. Attending Participation: I was present and participated during the entire procedure, including non-dempsey portions. MD Lynette Mercado MD 09/07/2018 8:19:50 AM The attending physician has electronically signed and finalized this document. Antolin Erazo, Number of Addenda: 0 Note Initiated On: 09/07/2018 8:01 AM Performing Organization Address City/State/Zipcode Phone Number [facility] OTHER RESULTS * POC GLUCOSE (09/07/2018 7:39 AM CDT) Glucose, POC 120 (H) 70 - 100 MG/DL MAIN LAB Performing Organization Address City/[facility]/Zipcode Phone Number MAIN LAB [address] [place] [address] * TELEMETRY STRIPS-SCAN (09/07/2018 12:00 AM CDT) Narrative Performed At Ordered by an unspecified provider. * TSH WITH FREE T4 REFLEX (08/23/2018) TSH Thyroid 0.13 (L) 0.35 - 4.94 OTHER OUTSIDE Screen LAB T4-Free 1.63 (H) 0.70 - 1.48 OTHER OUTSIDE LAB Specimen Blood - Blood Performing Organization Address City/State/Zipcode Phone Number OTHER OUTSIDE LAB from Last 3 Months Insurance Type Payer Benefit Subscriber ID Effective Phone Address Plan / Dates Group Medicare MEDICARE MEDICARE xxxxxxxxxxx 2018-P PART A AND resent B Advance Directives Patient has advance care planning documents, and code status on file. For more i nformation, please contact: [facility] [address] [facility] [place] [address] Date Inactivated Comments Code Status Date Activated [...]
--- OUTSIDE RECORDS SUMMARY | 2018-11-02 16:21 | XMS REPORT | Encounter Summary ---
Author Author [facility] Organization [facility] Address Unknown Phone Unavailable Care Team Providers Care Slotter Operator Helper Name Role Phone Carla Wilson MD PCP Naima Field MD Unavailable Winnie Jorge MD Unavailable Emiliano Rodriguez APRN,CAREER SERVICES OFFICER-C 7 Reason for Referral * Consult, Test & Treat (Urgent) Referred By Contact Referred To Contact Status Reason Specialty Diagnoses / Procedures Emiliano Rodriguez APRN,CAREER SERVICES OFFICER-C [address] [facility] [address] [place] [address] Mark Boston MD [address] [facility] [address] [place] [address] No Auth Needed Specialty Services Gastroenterology Diagnoses Required Chronic gastrointestinal bleeding Encounter Details Care Team Description Date Type Department Clary Martins RN Chronic gastrointestinal bleeding (Primary Dx) 11/01/2018 Orders Only [facility] [address] [place] [address] Social History Date Tobacco Use Types Packs/Day [...] Treatment Order Schedule Name Priority Associated Diagnoses Ordered: 11/01/2018 AMB REFERRAL TO GASTROENTEROLOGY Routine Chronic gastrointestinal bleeding documented as of this encounter Visit Diagnoses Diagnosis Chronic gastrointestinal bleeding - Primary Hemorrhage of gastrointestinal tract, unspecified documented in this encounter
--- OUTSIDE RECORDS SUMMARY | 2018-11-02 16:22 | XMS REPORT | Encounter Summary ---
Author Author [facility] Address Unknown Phone Unavailable Care Team Providers Care Behavioral Health Tech Name Role Phone Carla Wilson MD PCP Naima Field MD Unavailable Winnie Jorge MD Unavailable Encounter Details Care Team Description Date Type Department Emiliano Rodriguez APRN,GOLF MANAGER-C [address] [facility] [id number] [place], [place] [id number] Chronic diastolic heart failure (HCC) (Primary Dx) 09/29/2018 Orders Only [facility] 4000 [facility] [id number] [place] [address] Social History Date Tobacco Use Types Packs/Day [...] Status Date of Assessment Functional Status Response 07/01/2018 Does the patient have a hearing impairment: No 07/01/2018 Does the patient have a visual impairment: Yes 07/01/2018 Does the patient have impaired ambulation: Yes 07/01/2018 Does the patient have an activity of daily living Yes (ADL) impairment: 06/18/2018 Does the patient have an instrumental activity of Yes daily living (IADL) impairment: Date of Assessment Cognitive Status Response 07/01/2018 Does the patient have a cognitive impairment: Yes - sometimes documented as of this encounter Plan of Treatment Not on filedocumented as of this encounter Results * BASIC METABOLIC PANEL (10/04/2018) Sodium 138 135 - 145 [facility] Potassium 4.7 3.6 - 5.0 [facility] Chloride 107 98 - 107 [facility] CO2 24 21 - 32 [facility] Blood Urea 26 (H) 7 - 18 [facility] Nitrogen Creatinine 2.08 (H) 0.60 - 1.30 [facility] Glucose 259 (H) 70 - 105 [facility] Calcium 9.8 8.5 - 10.1 [facility] eGFR Non 24 [facility] eGFR [facility] Mauritian Anion Gap 7 5 - 14 [facility] Specimen Blood - Blood Narrative Performed At Performing Organization Address City/State/Zipcode Phone Number MAIN LAB [address] [place] [address] documented in this encounter Visit Diagnoses Diagnosis Chronic diastolic heart failure (HCC) - Primary Chronic diastolic heart failure documented in this encounter
--- OUTSIDE RECORDS SUMMARY | 2018-11-02 16:22 | XMS REPORT | Encounter Summary ---
Author Author [facility] Organization [facility] Address Unknown Phone Unavailable Care Team Providers Care Automation Consultant Name Role Phone Carla Wilson MD PCP Naima Field MD Unavailable Winnie Jorge MD Unavailable Reason for Visit * Reason Comments Other Encounter Details Care Team Description Date Type Department Lynette Diana MD [address] [address] Other 09/20/2018 Telephone [facility] [address] [address] Social History Date Tobacco Use Types Packs/Day [...] - sometimes documented as of this encounter Miscellaneous Notes * Telephone Encounter - Glo Us RN - 09/21/2018 8:38 AM CDT Reviewed endoscopy visit notes and procedure- all state that patient is female. * Telephone Encounter - Jeniffer Walker - 09/20/2018 3:25 PM CDT Pt called to let us know that in the history portion of her colonoscopy report i t states she is a male. She would like this fixed and call pt if you have any q uestions. documented in this encounter Plan of Treatment Not on filedocumented as of this encounter Visit Diagnoses Not on filedocumented in this encounter
--- OUTSIDE RECORDS SUMMARY | 2018-11-02 16:22 | XMS REPORT | Encounter Summary ---
Author Author [facility] Organization [facility] Address Unknown Phone Unavailable Care Team Providers Care Helper Coordinator Name Role Phone Carla Wilson MD PCP Naima Field MD Unavailable Winnie Jorge MD Unavailable Reason for Visit * Reason Comments Weight Gain Encounter Details Care Team Description Date Type Department Estrella Chauhan LPN Weight Gain 09/23/2018 Telephone [facility] [address] [id number] [place] [address] Social History Date Tobacco Use Types Packs/Day [...] encounter Miscellaneous Notes * Telephone Encounter - Oliverio Mcneil LPN - 09/28/2018 12:16 PM CDT Pt reports she was ED at last night and was released. Pt states last night she w as given 1 mg bumex and 25 mg spironolactone and instructed to take 1 mg bumex t his AM. Pt reports edema is slightly better and may be 2+ now. Pt reports SOA h as not improved and O2 Was 88%. Pt reports weight going down 0.5 lbs and her we ight while on the phone was 207.2 lbs. Called via [facility] and requested records and lab results be sent to [facility] F[facility] . * Telephone Encounter - Clary Martins RN - 09/27/2018 4:59 PM CDT Spoke with patient on the phone. Discussed with Dr. Sneed. Worsening labs received from last week. Pt advised to go to nearest ER for diure sis/have kidney function evaluated. Pt upset on hearing news, however understands. Pt will go to ER and update us wh en she is released. * Telephone Encounter - Clary Martins RN - 09/27/2018 1:32 PM CDT Spoke with patient on the phone. Pt getting labs drawn now. Pt now reporting 3+ edema and SOB (sounds SOB on phone). Pt says she is a few pounds up. Will route to Dr. Sneed for review. * Telephone Encounter - Estrella Chauhan LPN - 09/27/2018 12:38 PM CDT Message received from pt stating she has not heard back from us yet regarding fl uid retention. Requests cb and states she was going to go have labs drawn today. Returned call to pt and left detailed message on authorized mobile VM of plan o utlined in note by Clary Martins RN from 09/23/18. Requested cb to confirm whe re she will have labs and to get update on wts and symptoms. Response pending. * Telephone Encounter - Clary Martins RN - 09/23/2018 4:40 PM CDT Discussed with Dr. Sneed. Will wait for lab results from today before gladis ing decision. Pt may need start metolazone or come in for IV diuresis. Spoke with patient on the phone. Let her know plan that we will get a hold of he r on Thursday after we receive lab results. Pt thankful for update in plan. * Telephone Encounter - Estrella Chauhan LPN - 09/23/2018 4:07 PM CDT Message received from pt reporting 5 lbs weight gain, 2+ BLE edema, increased SO B. Returned call to pt and she reports the followin) Weight today at was 197.0 lbs, pt's weight yesterday morning at home was 1 96.2 lbs 2) BLE edema 2+ and pt states it is increased 3) reports abdominal bloating and tightness 4) reports she is using O2 at 2L per NC more often with activity, occasional SOA at rest 5) reviewed cardiac meds and pt is not taking potassium per Dr. Nelson, no diureti cs at this time, compliant with all other meds 6) pt drinks about 64 oz (maybe), current orders 1.5 L per day, tries to avoid s odium 7) CP "every now and then", has not taken any nitrostat since last hospital disc mary Advised pt to avoid foods high in Na and decrease fluid intake to 1.5 L. Inform ed pt we will forward to provider for review and cb with recommendation. Pt also said she had labs drawn today at and wanted to know what her GFR was. She has been worried about her kidneys. Informed pt we have not received them yet. Pt states told her they would fax them over. documented in this encounter Plan of Treatment Not on filedocumented as of this encounter Visit Diagnoses Not on filedocumented in this encounter
--- OUTSIDE RECORDS SUMMARY | 2018-11-02 16:22 | XMS REPORT | Encounter Summary ---
Author Author [facility] Organization [facility] Address Unknown Phone Unavailable Care Team Providers Care Trimmer And Reinforcer Name Role Phone Carla Wilson MD PCP Naima Field MD Unavailable Winnie Jorge MD Unavailable Emiliano Rodriguez APRN,FILER REPAIRER-C 7 Encounter Details Care Team Description Date Type Department Janell Del Cid 10/07/2018 Documentation [facility] [address] [id number] [place] [address] Social History Date Tobacco Use Types Packs/Day [...] Comments Procedure Name Priority Date/Time Associated Diagnosis BASIC METABOLIC PANEL STAT 10/04/2018 Chronic diastolic heart failure (HCC) documented in this encounter Results * BASIC METABOLIC PANEL [...] [facility] eGFR [facility] Egyptian Anion Gap 7 5 - 14 [facility] Specimen Blood - Blood Narrative Performed At Performing Organization Address City/State/Zipcode Phone Number MAIN LAB [address] [place] [address] documented in this encounter Visit Diagnoses Diagnosis Chronic diastolic heart failure (HCC) Chronic diastolic heart failure documented in this encounter
--- OUTSIDE RECORDS SUMMARY | 2018-11-02 16:22 | XMS REPORT | Encounter Summary ---
Author Author [facility] Organization [facility] Address Unknown Phone Unavailable Care Team Providers Care Furniture Removalist Name Role Phone Carla Wilson MD PCP Naima Field MD Unavailable Winnie Jorge MD Unavailable Emiliano Rodriguez APRN,SAP TRAINER-C 7 Reason for Visit * Reason Comments Lab Request Encounter Details Care Team Description Date Type Department Oliverio Mcneil LPN Lab Request 10/04/2018 Telephone [facility] [address] [id number] [place], [place] [id number] Social History Date Tobacco Use Types Packs/Day [...] Telephone Encounter - Oliverio Mcneil LPN - 10/07/2018 10:15 AM CDT Records request sent to [employer] for pts lab results. * Telephone Encounter - Oliverio Mcneil LPN - 10/04/2018 4:23 PM CDT Pt called reporting she had labs drawn today at via [facility]. documented in this encounter Plan of Treatment Not on filedocumented as of this encounter Visit Diagnoses Not on filedocumented in this encounter
--- OUTSIDE RECORDS SUMMARY | 2018-11-02 16:22 | XMS REPORT | Encounter Summary ---
Author Author [facility] Organization [facility] Address Unknown Phone Unavailable Care Team Providers Care Extrusion Press Operator Name Role Phone Carla Wilson MD PCP Naima Field MD Unavailable Winnie Jorge MD Unavailable Emiliano Rodriguez APRN,WARD ASSISTANT-C 7 Reason for Visit * Reason Comments Lab Results Encounter Details Care Team Description Date Type Department Clary Martins, health tech Results 10/01/2018 Documentation [facility] [address] [id number] [place] [address] Social History Date Tobacco Use Types Packs/Day [...] Procedure Name Priority Date/Time Associated Diagnosis CBC Routine 09/27/2018 COMPREHENSIVE METABOLIC Routine 09/27/2018 PANEL documented in this encounter Results * COMPREHENSIVE METABOLIC PANEL (09/27/2018) Sodium 139 OTHER OUTSIDE LAB Potassium 4.9 OTHER OUT[facility] Chloride 108 [facility] CO2 210 OTHER [facility] Blood Urea 35 OTHER OUTSIDE Nitrogen LAB Creatinine 2.32 OTHER [facility] Glucose 139 OTHER [facility] Calcium 9.3 OTHER OUTSIDE LAB Total Protein 6.9 OTHER OUTSIDE LAB Total Bilirubin 0.7 OTHER OUTSIDE LAB Albumin 3.4 OTHER OUTSIDE LAB Alk Phosphatase 57 OTHER OUTSIDE LAB AST (SGOT) 17 OTHER OUTSIDE LAB ALT (SGPT) 11 [facility] eGFR Non 21 OTHER OUT[facility]IDE LAB Burkinan eGFR OTHER OUTSIDE [facility] Anion Gap 10 OTHER OUTSIDE LAB Troponin-I 0.028 OTHER OUTSIDE LAB Digoxin 1.44 OTHER [facility] Specimen Blood - Blood Performing Organization Address City/[facility] Phone Number OTHER OUTSIDE LAB * CBC (09/27/2018) White Blood 4.7 OTHER OUTSIDE Cells LAB RBC 2.79 OTHER OUTSIDE LAB Hemoglobin 8.3 OTHER OUTSIDE LAB Hematocrit 26 OTHER OUTSIDE LAB MCV 94 OTHER OUTSIDE LAB MCH 30 OTHER OUTSIDE LAB MCHC 32 OTHER OUTSIDE LAB Platelet Count 139 OTHER OUTSIDE LAB MPV 10.5 OTHER OUTSIDE LAB RDW 15.2 OTHER OUTSIDE LAB Specimen Blood - Blood Performing Organization Address City/State/Zipcode Phone Number OTHER OUTSIDE LAB documented in this encounter Visit Diagnoses Not on filedocumented in this encounter
--- OUTSIDE RECORDS SUMMARY | 2018-11-02 16:22 | XMS REPORT | Encounter Summary ---
Author Author [facility] Organization [facility] Address Unknown Phone Unavailable Care Team Providers Care Business Services Director Name Role Phone Carla Wilson MD PCP Naima Field MD Unavailable Winnie Jorge MD Unavailable Emiliano Rodriguez APRN,BELLHOP CAPTAIN-C 7 Reason for Visit * Reason Comments Lab Results Encounter Details Care Team Description Date Type Department Clary Martins RN Lab Results 10/13/[address] [facility] [id number] [place], [place] [id number] Social History Date Tobacco Use Types Packs/Day [...] Telephone Encounter - Clary Martins RN - 10/13/2018 3:38 PM CDT Reviewed labs with Dr. Sneed, no changes to medication at this time. Spoke with patient on the phone. Pt verbalized understanding. We will speak with patient next week unless she starts having symptoms of weight gain, SOB, edema. documented in this encounter Plan of Treatment Not on filedocumented as of this encounter Visit Diagnoses Not on filedocumented in this encounter
--- OUTSIDE RECORDS SUMMARY | 2018-11-02 16:22 | XMS REPORT | Encounter Summary ---
Author Author [facility] Organization [facility] Address Unknown Phone Unavailable Care Team Providers Care Ranch Hand Livestock Name Role Phone Carla Wilson MD PCP Naima Field MD Unavailable Winnie Jorge MD Unavailable Emiliano Rodriguez APRN,RRTS-C 7 Reason for Visit * Reason Comments Lab Request Encounter Details Care Team Description Date Type Department Clary Martins RN Lab Request 10/07/2018 Telephone [facility] [address] [id number] [place], [place] [phone] Social History Date Tobacco Use Types Packs/Day [...] Miscellaneous Notes * Telephone Encounter - Clary aMrtins RN - 10/07/2018 11:38 AM CDT labs requested from [facility]. documented in this encounter Plan of Treatment Not on filedocumented as of this encounter Visit Diagnoses Not on filedocumented in this encounter
--- OUTSIDE RECORDS SUMMARY | 2018-11-02 16:22 | XMS REPORT | Encounter Summary ---
Author Author [facility] Organization [facility] Address Unknown Phone Unavailable Care Team Providers Care Post Graduate Intern Name Role Phone Carla Wilson MD PCP Naima Field MD Unavailable Winnie Jorge MD Unavailable Reason for Visit * Reason Comments Lab Results [facility] 09/22/18 Encounter Details Care Team Description Date Type Department Clary Martins RN Lab Results ([facility] 09/22/18) 09/27/2018 Documentation [facility] [address] [place] [address] Social History Date Tobacco Use Types Packs/Day [...] - sometimes documented as of this encounter Progress Notes * Clary Martins RN - 09/27/2018 4:27 PM CDT outside BMP entered from 09/22/18 documented in this encounter Plan of Treatment Not on filedocumented as of this encounter Procedures Comments Procedure Name Priority Date/Time Associated Diagnosis BASIC METABOLIC PANEL Routine 09/22/2018 documented in this encounter Results * BASIC METABOLIC PANEL (09/22/2018) Sodium 138 OTHER OUTSIDE LAB Potassium 5.0 OTHER OUTSIDE LAB Chloride 108 OTHER OUTSIDE LAB CO2 24 OTHER OUTSIDE LAB Blood Urea 35 OTHER OUTSIDE Nitrogen LAB Creatinine 3.02 OTHER OUTSIDE LAB Glucose 126 OTHER OUTSIDE LAB Calcium 9.0 OTHER OUTSIDE LAB eGFR Non 16 OTHER OUTSIDE LAB Omani eGFR OTHER OUTSIDE [place] [facility] Anion Gap 6 OTHER OUTSIDE LAB Specimen Blood - Blood Performing Organization Address City/State/Zipcode Phone Number OTHER OUTSIDE LAB documented in this encounter Visit Diagnoses Not on filedocumented in this encounter
--- OUTSIDE RECORDS SUMMARY | 2018-11-02 16:22 | XMS REPORT | Encounter Summary ---
Author Author [facility] Organization [facility] Address Unknown Phone Unavailable Care Team Providers Care Correspondence Analyst Name Role Phone Carla Wilson MD PCP Naima Field MD Unavailable Winnie Jorge MD Unavailable Emiliano Rodriguez APRN,WEB PRESS OPERATOR-C 7 Reason for Referral * Consult, Test & Treat (Routine) Referred By Contact Referred To Contact Status Reason Specialty Diagnoses / Procedures Felisa Sneed MD [address] [place] [address] Pending Review Procedures REQUEST FOR CARDIOLOGY APPOINTMENT * Consult, Test & Treat (Routine) Referred By Contact Referred To Contact Status Reason Specialty Diagnoses / Procedures Felisa Sneed MD [address] [place] [address] New Request Procedures REQUEST FOR CARDIOLOGY APPOINTMENT * Consult, Test & Treat (Routine) Referred By Contact Referred To Contact Status Reason Specialty Diagnoses / Procedures Felisa Sneed MD [address] [place] [address] New Request Procedures REQUEST FOR CARDIOLOGY APPOINTMENT Reason for Visit * Reason Comments CAD follow up * Consult, Test & Treat (Routine) Referred By Contact Referred To Contact Status Reason Specialty Diagnoses / Procedures Felisa Sneed MD [address] [place], [place] [phone] New Request Procedures REQUEST FOR CARDIOLOGY APPOINTMENT Encounter Details Care Team Description Date Type Department Felisa Sneed MD 4000 [facility] [place] [address] [phone] CAD (follow up) 10/08/2018 Office Visit [facility] [address] [place] [address] Social History Date Tobacco Use Types Packs/Day [...] Vital Signs Time Taken Vital Sign Reading 10/08/2018 1:13 PM CDT Blood Pressure 140/64 - Pulse - - Temperature - - Respiratory Rate - 10/08/2018 1:13 PM CDT Oxygen Saturation 93% - Inhaled Oxygen - Concentration 10/08/2018 1:10 PM CDT Weight 93.3 kg (205 lb 11.2 oz) 10/08/2018 1:10 PM CDT Height 162.6 cm (5' 4") 10/08/2018 1:10 PM CDT Body Mass Index 35.31 documented in this encounter Functional Status Date [...] this encounter Patient Instructions * Patient Instructions* Felisa Sneed MD - 10/08/2018 1:00 PM CDT Decrease digoxin to every other day. Needs to get in to GI/hepatology before Sept, is actively bleeding again, has se en Dr. Daina. Please take an extra dose of Bumex on days you get a transfusion. Labs in 2-3 weeks: CBC CMP MG++ bnp. We will also send order to get standing BMP each week while you have your labs drawn. follow up with Emiliano Rodriguez APRN in 1 month Follow up with Dr. Sneed in 3 months Please call our office with any questions or concerns [phone] documented in this encounter Plan of Treatment Order Schedule Name Priority Associated Diagnoses Expected: 10/22/2018 (Approximate), Expires: 10/09/2019 BNP (B-TYPE NATRIURETIC PEPTI) Routine Heart disease Chronic diastolic heart failure (HCC) Expected: 10/22/2018 (Approximate), Expires: 10/09/2019 BASIC METABOLIC PANEL Routine Chronic diastolic heart failure (HCC) Expected: 10/22/2018 (Approximate), Expires: 10/09/2019 CBC Routine Chronic diastolic heart failure (HCC) Expected: 10/22/2018 (Approximate), Expires: 10/09/2019 MAGNESIUM Routine Chronic diastolic heart failure (HCC) Twice a Week for 99 Occurrences starting 10/08/2018 until 10/09/2019 BASIC METABOLIC PANEL Routine Chronic diastolic heart failure (HCC) documented as of this encounter Visit Diagnoses Diagnosis Chronic diastolic heart failure (HCC) - Primary Chronic diastolic heart failure Heart disease Heart disease, unspecified documented in this encounter
--- OUTSIDE RECORDS SUMMARY | 2018-11-02 16:22 | XMS REPORT | Encounter Summary ---
Author Author [facility] Organization [facility] Address Unknown Phone Unavailable Care Team Providers Care Clerk Travel Reservations Name Role Phone Carla Wilson MD PCP Naima Field MD Unavailable Winnie Jorge MD Unavailable Emiliano Rodriguez APRN,CAMERA MECHANIC-C 7 Reason for Visit * Reason Comments Follow Up Medications Only Heart Failure Shortness of Breath Leg Swelling Encounter Details Care Team Description Date Type Department Emiliano Rodriguez APRN,CAMERA MECHANIC-C [address] [facility] [id number] [place] [address] [phone] Follow Up; Medications Only; Heart Failure; Shortness of Breath; Leg Swelling 09/30/2018 Office Visit [facility] [address] [facility] [id number] [place] [address] Social History Date Tobacco Use Types Packs/Day [...] Vital Signs Time Taken Vital Sign Reading 09/30/2018 9:01 AM CDT Blood Pressure 114/50 09/30/2018 9:01 AM CDT Pulse 56 - Temperature - - Respiratory Rate - - Oxygen Saturation - - Inhaled Oxygen - Concentration 09/30/2018 9:01 AM CDT Weight 94.4 kg (208 lb 3.2 oz) 09/30/2018 9:01 AM CDT Height 162.6 cm (5' 4") 09/30/2018 9:01 AM CDT Body Mass Index 35.74 documented in this encounter Functional Status Date [...] this encounter Patient Instructions * Patient Instructions* Rina Ruano MA - 09/30/2018 9:00 AM CDT Your fluid levels are elevated today. We are going to increase your diuretics to day. Keep working on eating low sodium diet and drinking under 64 ounces of flui d per day. If you can tolerate trying a "boost" supplemental shake to improve yo ur nutrition. Your instructions today include: 1. Medications: Start taking bumex 2 mg daily; stay on this dose until we call you next week after we check your labs. 2. Labs: BMP on Thursday at the cancer center in [place], [place]. 3. Next follow up appointment already scheduled on 10/08/[address] Sneed 4. Call for any worsening symptoms of [...] daily. Thank you for coming to [facility]. Emiliano Michael SINGH Nurse Practitioner Tracie Stuart RN [phone] Heart Failure Education Summary You have been diagnosed with heart failure. The termheart failuresounds scar y because it suggests the heart is no longer working. But it actually means the heart isn't doing its job as well as it should. Heart failure happens when your heart muscle can't keep up with your body's need for blood flow. Symptoms of hea rt failure can be controlled by changes in your lifestyle and by following your doctor's advice. Additional education resources are available. Please contact your nurse if you would like more information. Home care Activity Ask your health care provider about an exercise program. You can benefit from si mple activities such as walking or gardening. Exercising most days of the week c an make you feel better. Don't be discouraged if your progress is slow at first. Rest as needed and stop activity if you develop symptoms such as chest pain, li ghtheadedness, or significant shortness of breath. Diet Follow a heart healthy diet. And make sure to limit the salt (sodium) in your di et. Salt causes your body to hold water. This makes your heart work harder.Martines it your salt by doing the following: Limit canned, dried, packaged, and fast foods. Don't add salt to your food. Season foods with herbs instead of salt. Watch how much liquids you drink. Drinking too much can make heart failure wo rse. Talk with your health care provider about how much you should drink each da y. Limit the amount of alcohol you drink. It may harm your heart. Women should h ave no more than 1 drink a day and men should have no more than two. Tobacco If you smoke, you'll need to quit. Smoking increases your chances of having a he art attack, which makes heart failure worse. Quitting smoking is the number one thing you can do to improve your health. Enroll in a stop-smoking program to imp rove your chances of success. Talk with your health care providerabout medicin es or nicotine replacement therapy to help you quit smoking. Medicine Take your medicines exactly as prescribed. Learn the names and purpose of each o f your medicines. Keep an accurate medicine list and current dosages with you at all times. Don't skip doses. If you miss a dose of your medicine, take it as so on as you remember. If you miss a dose andit's almost time for your next dose, just wait and take your next dose at the normal time. Don't take a double dose. If you are unsure, call your doctor's office. Beta-blockers (examples: carvedilol, metoprolol XL, bisoprolol) These medicines help reduce heart rate and blood pressure. Taking a beta-nneka long-term may reduce the harmful effects of heart failure and may stop it from getting worse. Possible side effects: Fatigue, low blood pressure, dizziness, feeling lighth eaded How to take: Take carvedilol (Coreg) with food. All others may be taken witho ut regards to meals Angiotensin-converting enzyme inhibitors (EMMA inhibitors examples: lisinop ril, ramipril, fosinopril) or Angiotensin-receptor blockers (ARBs examples : losartan, valsartan, olmesartan) They help to decrease blood pressure and block certain hormones that can put str ess on the heart. Like beta-blockers, taking an EMMA inhibitor or an ARB may redu ce the harmful effects of heart failure and may prevent heart failure from getti ng worse. Possible side effects: Dry cough, low blood pressure, dizziness How to take: Take captopril and moexipril on an empty stomach. All others may be taken without regards to meals. Vasodilators (examples: hydralazine, nitrates) These medicines open up blood vessels in the body. This makes it easier for the heart to pump blood. These medicines improve heart failure symptoms and may prev ent your heart failure from getting worse. Hydralazine and a nitrate may be used when an EMMA inhibitor or ARB cannot be taken. Possible side effects: Headache, dizziness, low blood pressure How to take: Do not crush or chew. Imdur and Isordil may be cut in half. Take with a full glass of water Digoxin Digoxin is a medicine that helps the heart pump. It can help patients with heart failure stay out of the hospital. It may also help improve heart failure sympto ms. Possible side effects: nausea, vomiting, blurred vision, low heart rate, dizz iness How to take: Take without regards to meals. Diuretics (examples: furosemide, bumetanide, torsemide) Also known as water pills, these medications help to rid the body of extra water and salt. They can also reduce swelling. Diuretics make it easier for your heart to pump, because there is less fluid in your body that the heart has to pump. Possible side effects: Increased urination, headache, muscle cramps, dizzines s, photosensitivity How to take: Take early in the day, with or without food. Aldosterone Antagonists (examples: spironolactone, eplerenone) Aldosterone antagonists work by blocking certain hormones that can put stress on the heart. Possible side effects: rash, muscle cramps, dizziness, enlarged or tender brian asts How to take: Spironolactone should be taken with food to increase absorption. Eplerenone can be taken without regards to meals. Weight monitoring Weigh yourself every day. A sudden weight gain can mean your heart failure is ge tting worse. Weigh yourself at the same time of day and in the same kind of clot hes. Ideally, weigh yourself first thing in the morning after you empty your cadence dder, but before you eat breakfast. Your health care provider will show you how to track your weight. He or she will also discuss with you when you should call if you have a sudden, unexpected increase in your weight. In general your health care provider may ask you to report if your weight goes u p by more than3 pounds in 1 day or 5 pounds in 1 week, or whatever weight gain you were told by your doctor. This is a sign that you are retaining more fluid than you should be. Follow-up care Make a follow-up appointment as directed. Depending on the type and severity of heart failure you have, you may need follow-up as early as 7 days from hospital discharge. Keep appointments for checkups and lab tests that are needed to check your medicines and condition. Recognize that your health and even survival depend on your following medical re commendations. Symptoms Heart failure can cause a variety of symptoms, including: Shortness of breath Difficulty breathing at night Swelling in the legs and feet or in the belly (abdomen) Becoming easily fatigued Irregular or rapid heartbeat Weakness or lightheadedness It is important to know what to do if symptoms get worse or if you develop signs of worsening heart failure. When to call your doctor Call your doctor right away if you have any of these signs of worsening heart fa ilure: Sudden weight gain (more than3 pounds in 1 day or 5pounds in 1 week, or w hatever weight gain you were told to report by your doctor) Trouble breathing not related to being active New or increased swelling of your legs or ankles Swelling or pain in your abdomen Breathing trouble at night (waking up short of breath, needing more pillows t o breathe) Frequent coughing that doesn't go away Feeling much more tired than usual When to seek emergency medical attention Call 911 right away if you have: Severe shortness of breath, such that you can't catch your breath even while resting Severe shortness of breath Severe chest pain that does not resolve with rest or nitroglycerin [place], foamy mucus with cough and shortness of breath A continuous rapid or irregular heartbeat Passing out or fainting Stroke symptoms such as sudden numbness or weakness on one side of your face, arm, or leg or sudden confusion, trouble speaking or vision changes Heart Failure documented in this encounter Progress Notes * Emiliano Rodriguez APRN, FNP-C - 09/30/2018 9:00 AM CDT Date of Service: 09/30/2018 Deborah Fields is a 63 y.o. female. HPI Ms. Fields was seen today in heart failure clinic for follow-up visit accompanie d by her spouse. She was last seen in our clinic on 08/24/[address] Sneed . During that office visit she was thought to be hypovolemic, was instructed to discontinue both spironolactone and Bumex. Since that office visit there has b sudhakar multiple clinic phone calls, she was resumed on Bumex approximately 2 weeks after she was seen in clinic. On 09/08 she was instructed to increase Bumex dose to 3 mg bid for 4 days only. On 09/17 she reported 10 pound weight loss in clinic staff called to check on her she was instructed to hold her medications and have labs checked. On 09/28 she called in reporting she had been seen in the emergency department and received diuretics. She was scheduled to present for today's visit for close follow-up. Ms. Fields has a history of diastolic heart failure. Echocardiogram on 06/02/18 shows EF 50-55% mild to moderate MR, mild to moderate TR, trace pulmonic valve regurgitation, LVIDD 4.63 cm, RV basal diameter 5.3 cm, systolic PA pressure 41 mmHg. Today Ms. Fields reports she has been having increased fatigue recently. Descri bes shortness of breath with exertion. Reports having cough when she lays flat. She describes having occasional chest pain which quickly resolves without inte rvention, also reports occasional palpitations. Describes having lower extremity edema with her left leg more than her right leg, also reports abdominal distent ion. She sleeps flat using 2 pillows, describes occasional PND. She wears 2 L oxygen per n/c at all times. She states after recently being seen in her local emergency department she has been taking Bumex 1 mg/day however did not take any diuretics today before coming to her clinic appointment. She states she is jose iding extra sodium and thinks she is drinking under 64 ounces of fluid per day. Past medical history includes CAD, HTN, paroxysmal A. fib, HLD, NSTEMI, DM 2, GI bleed, anemia, obesity, Long's esophagus, hepatitis B, HFpEF. Vitals: 09/30/18 0901 BP: 114/50 Pulse: 56 Weight: 94.4 kg (208 lb 3.2 oz) Height: 1.626 m (5' 4") Body mass index is 35.74 kg/m. Review of Systems Constitution: Positive for weight gain. HENT: Negative. Eyes: Negative. Cardiovascular: Positive for dyspnea on exertion. Respiratory: Positive for shortness of breath. Endocrine: Negative. Hematologic/Lymphatic: Negative. Skin: Negative. Musculoskeletal: Negative. Gastrointestinal: Negative. Genitourinary: Negative. Neurological: Negative. Psychiatric/Behavioral: Negative. Allergic/Immunologic: Negative. All other systems reviewed and are negative. Physical Exam General Appearance: overweight female, in no acute distress Skin: warm, dry Eyes: conjunctivae and lids normal, pupils are equal and round Teeth/Gums/Palate: dentition unremarkable, no lesions Lips & Oral Mucosa: no pallor or cyanosis Neck Veins: JVP 8-9 cm, + HJR (neck veins difficult to assess r/t body habitus) Chest Inspection: chest is normal in appearance [...] normal symmetric pedal pulses Lower Extremity Edema: +2 mm lower extremity edema, L ankle/leg > R ankle/leg Abdominal Exam: soft, non-tender, no masses, bowel sounds normal Gait & Station: walks without assistance Orientation: oriented to time, place and person Affect & Mood: appropriate and sustained affect Language and Memory: patient responsive and seems to comprehend information Neurologic Exam: neurological assessment grossly intact Vital signs were reviewed Cardiovascular Studies None today Problems Addressed Today Encounter Diagnoses Name Primary? HFpEF Yes HTN CKD Assessment and Plan 1. HFpEF. Ms. Fields today presents with NYHA functional class IIIb and AHA st age C symptoms. Her medications include digoxin 125 mcg/day, metoprolol tartrat e 37.5 mg bid, diuretic is Bumex 1 mg daily. These are guideline directed medic al therapies for heart failure. Today on exam she appears to be hypervolemic wi th elevated JVP, positive HJR, bilateral lower extremity edema. Instructed to i ncrease her diuretic to Bumex 2 mg daily with plans to repeat labs on 10/04/18 an d adjust her diuretic accordingly. Encouraged her to continue following low-sod ium diet and fluid restriction. 2. HTN. Blood pressure today in clinic is 114/50. Currently she is on metopro lol tartrate 37.5 mg bid. No other antihypertensive agents. 3. CKD. Labs checked on 09/27/18 at outside facility show creatinine of 2.32 wi th BUN of 35, sodium 139, potassium 4.9. Recently her creatinine has ranged fro m 1.1-3.7. She states concerns today regarding her renal function. Discussed w ith her the importance of keeping her volume status stable to reduce the stress on her kidneys. Will plan to repeat labs in 4 days after increasing her diureti c dose today. 4. Follow-up. Appointment scheduled to return to clinic in approximately 1 wee k on 10/08/[address] Sneed. Will plan to recheck labs and volume assess ment at that time. Ms. Fields and her spouse are in agreement state understandi ng of this plan. Please see AVS for full patient education. Education/care coordination and counseling time spent: 25 minutes of 30 minute v isit. Topics included HF disease [...] concerns or questions. Emiliano Rodriguez APRN Pager #[phone] Collaborating MD:JAYSHREE Current Medications (including today's revisions) bumetanide (BUMEX) 1 mg tablet Take two tablets by mouth daily. cetirizine (ZYRTEC) 10 mg tablet Take 10 mg by mouth every morning. clobetasol (TEMOVATE) 0.05 % topical cream Apply to affected area twice bree y as needed digoxin (LANOXIN) 125 mcg tablet Take 125 mcg by mouth daily. diphenhydrAMINE (BENADRYL ALLERGY) 25 mg tablet Take 25 mg by mouth every 6 hours as needed for Sleep. folic acid (FOLVITE) 1 mg tablet Take 1 mg by mouth daily. ufilktmu-iycqzzyej-J-manganese 500-400-2-0.33 mg cap Take 500 mg by [...] Take 175 mcg by mouth daily 30 ana carmelita before breakfast. magnesium oxide (MAG-OX) 400 mg [...] filedocumented as of this encounter Visit Diagnoses Diagnosis HFpEF - Primary HTN Unspecified essential hypertension CKD Chronic kidney disease, Stage IV (severe) documented in this encounter
--- OUTSIDE RECORDS SUMMARY | 2018-11-02 16:22 | XMS REPORT | Encounter Summary ---
Author Author [facility] Organization [facility] Address Unknown Phone Unavailable Care Team Providers Care Electrical Solderer Name Role Phone Carla Wilson MD PCP Naima Field MD Unavailable Winnie Jorge MD Unavailable Emiliano Rodriguez APRN,PALEOLOGY TEACHER-C 7 Reason for Visit * Reason Comments Labs Only Encounter Details Care Team Description Date Type Department Clary Martins, THOM[place]ON Labs Only 10/13/2018 Documentation The [facility] [address] [place] [address] Social History Date Tobacco Use Types Packs/Day [...] Name Priority Date/Time Associated Diagnosis CBC Routine 10/11/2018 BASIC METABOLIC PANEL Routine 10/11/2018 documented in this encounter Results * BASIC METABOLIC PANEL (10/11/2018) Sodium 140 OTHER OUTSIDE LAB Potassium 4.9 OTHER OUTSIDE LAB Chloride 108 OTHER OUT[facility] CO2 21 OTHER OUTSIDE LAB Blood Urea 44 OTHER OUTSIDE Nitrogen [facility] Creatinine 2.65 OTHER OUTSIDE LAB Glucose 195 OTHER OUTSIDE LAB Calcium 9.1 OTHER OUTSIDE LAB eGFR Non 18 OTHER OUTSIDE LAB Ecuadorean eGFR OTHER OUTSIDE [place] Anion Gap 11 OTHER OUTSIDE LAB Specimen Blood - Blood Narrative Performed At Performing Organization Address City/State/Zipcode Phone Number OTHER OUTSIDE LAB * CBC (10/11/2018) White Blood 4.6 OTHER OUTSIDE Cells LAB [...]
--- OUTSIDE RECORDS SUMMARY | 2018-11-02 16:22 | XMS REPORT | Encounter Summary ---
Author Author [facility] Organization [facility] Address Unknown Phone Unavailable Care Team Providers Care Maintenance Coordinator Name Role Phone Carla Wilson MD PCP Naima Field MD Unavailable Winnie Jorge MD Unavailable Emiliano Rodriguez APRN,INFORMATION SYSTEMS PROJECT MANAGER-C 7 Reason for Visit * Reason Comments Labs Only Encounter Details Care Team Description Date Type Department Clary Martins RN Labs Only 10/07/2018 Documentation [facility] [id number] [place] [address] Social History Date Tobacco Use Types Packs/Day [...] impairment: No documented as of this encounter Progress Notes * Clary Martins RN - 10/07/2018 2:08 PM CDT Emiliano Rodriguez, UTILITIES OPERATOR,INFORMATION SYSTEMS PROJECT MANAGER-C Clary Martins, RN Her creat is stable; will let her f/u with Felisa tomorrow. Pt to f/u with Dr. Sneed on Sunday 10/08 documented in this encounter Plan of Treatment Not on filedocumented as of this encounter Visit Diagnoses Not on filedocumented in this encounter
--- OUTSIDE RECORDS SUMMARY | 2018-11-02 16:23 | XMS REPORT | Encounter Summary ---
Author Author [facility] Organization [facility] Address Unknown Phone Unavailable Care Team Providers Care Day Camp Unit Leader Name Role Phone Carla Wilson MD PCP Naima Field MD Unavailable Winnie Jorge MD Unavailable Reason for Visit * Reason Comments Follow-up Phone Call Encounter Details Care Team Description Date Type Department Lynette Diana MD [address] [facility] [place] [address] Follow-up Phone Call 09/17/2018 Telephone [facility] [address] [address] Social History Date Tobacco Use [...] Telephone Encounter - Clary Martins RN - 09/20/2018 2:12 PM CDT Spoke with patient on the phone. Pt says that she isn't feeling great today/feel ing nauseated/vomiting today. Pt says edema is much better today. Pt will get la bs drawn on on Thursday. No additional questions/concerns at this time. * Telephone Encounter - Alesha Jin - 09/17/2018 4:25 PM CDT Pt left VM saying she received the message to hold potassium and bumex but she i s also wanting to know her lab results. documented in this encounter Plan of Treatment Not on filedocumented as of this encounter Visit Diagnoses Not on filedocumented in this encounter
--- OUTSIDE RECORDS SUMMARY | 2018-11-02 16:23 | XMS REPORT | Encounter Summary ---
Author Author [facility] Organization [facility] Address Unknown Phone Unavailable Care Team Providers Care Desktop Technician Name Role Phone Carla Wilson MD PCP Naima Field MD Unavailable Winnie Jorge MD Unavailable Reason for Visit * Reason Comments Labs Only Encounter Details Care Team Description Date Type Department Pat Combs RN Labs Only 09/17/2018 Documentation [facility] [id number] [place] [address] Social History Date Tobacco Use Types Packs/Day [...] Date/Time Associated Diagnosis BASIC METABOLIC PANEL Routine 09/17/2018 Chronic diastolic heart failure (HCC) documented in this encounter Results * BASIC METABOLIC PANEL (09/17/2018) Sodium 139 [facility] Potassium 4.9 [facility] Chloride 104 [facility] CO2 27 [facility] Blood Urea 23 (A) 7 - 18 [facility] Nitrogen Creatinine 2.4 (A) 0.6 - 1.3 [facility] Glucose 152 (A) 70 - 105 [facility] Calcium 9.2 [facility] eGFR Non 21 (A) 60 [facility] eGFR [facility] Irish Anion Gap 8 [facility] Specimen Blood - Blood Narrative Performed At [facility] Orders from phone note on 09/15: Reviewed call with Dr. Nelson, Pt to increase bumex to 3mg BID and start potassium 20mEq BID and get labs redrawn on Thursday (not ) Increase in creatinine.Next OV scheduled 10/08 with JST.Routing to Dr. Nelson for review. Performing Organization Address City/State/Zipcode Phone Number MAIN LAB [address] [place] [address] documented in this encounter Visit Diagnoses Diagnosis Chronic diastolic heart failure (HCC) Chronic diastolic heart failure documented in this encounter
--- OUTSIDE RECORDS SUMMARY | 2018-11-02 16:23 | XMS REPORT | Encounter Summary ---
Author Author [facility] Organization [facility] Address Unknown Phone Unavailable Care Team Providers Care Merchandise Manager Name Role Phone Carla Wilson MD PCP Naima Field MD Unavailable Winnie Jorge MD Unavailable Reason for Visit * Auth/Cert Referred By Contact Referred To Contact Status Reason Specialty Diagnoses / Procedures Diagnoses GAVE (gastric antral vascular ectasia) Cirrhosis of liver without ascites, unspecified hepatic cirrhosis type (HCC) GAVE (gastric antral vascular ectasia) [K31.819] Cirrhosis of liver without ascites, unspecified hepatic cirrhosis type (HCC) [K74.60] P rocedures WI COLONOSCOPY FLX DX W/COLLJ SPEC WHEN PFRMD WI EGD ABLATE TUMOR POLYP/LESION W/DILATION& WIRE COLONOSCOPY DIAGNOSTIC WITH SPECIMEN COLLECTION BY BRUSHING/ WASHING - FLEXIBLE ESOPHAGOGASTRODUOD ENOSCOPY WITH ABLATION TUMOR/ POLYP/ OTHER LESION - FLEXIBLE Encounter Details Care Team Description Date Type Department Lynette Diana MD [id number] [place] [address] COLONOSCOPY DIAGNOSTIC WITH SPECIMEN COLLECTION BY BRUSHING/ WASHING - FLEXIBLE 09/07/2018 Surgery The [facility] [address] [place] [address] Social History Date Tobacco Use [...] Vital Signs Time Taken Vital Sign Reading 09/07/2018 10:15 AM CDT Blood Pressure 128/43 09/07/2018 10:15 AM CDT Pulse 69 09/07/2018 9:54 AM CDT Temperature 36.3 C (97.3 F) - Respiratory Rate - 09/07/2018 10:15 AM CDT Oxygen Saturation 100% - Inhaled Oxygen - Concentration 09/07/2018 7:32 AM CDT Weight 90.7 kg (200 lb) 09/07/2018 7:32 AM CDT Height 162.6 cm (5' 4") 09/07/2018 7:32 AM CDT Body Mass Index 34.33 documented in this encounter Functional Status Date [...] - sometimes documented as of this encounter Discharge Instructions * Discharge Instr - Education* Janell Jenkins RN - 09/07/2018 10:07 AM CDT EGD/Upper EUS/ERCP/Antegrade Enteroscopy Post Upper Endoscopy Instructions -You may have a sore throat after the procedure for 2-3 days. Try sucrets or lo zenges to help ease the pain. If it continues please contact us. -If you feel feverish, have a temperature of 101 degrees or higher, persistent n ausea and vomiting, abdominal pain or dark stools; please notify your nurse or G I physician. -You may have abdominal cramping following the procedure this can be relieved by belching or passing air. -If you have redness or swelling at the IV site, place a warm, wet washcloth ove r the affected areas for 15 minutes, 3-4 times a day until the redness subsides. If symptoms continue for 2-3 days, contact your regular physician. - If you have bleeding from your mouth, over 2 tablespoons and increasing, pleas e notify your physician. A small amount of bleeding is normal if a biopsy or po lyps were taken. If you are vomiting blood you need to seek immediate medical a ttention. - You may resume all your routine medications, if medications need to be held yo ur physician and/or nurse will notify you post procedure. SPECIFIC INSTRUCTIONS OUTPATIENTS: A. Because of sedation and lack of coordination, UNTIL TOMORROW, DO NOT: 1. Operate any motorized vehicle - this includes driving. 2. Sign any legal documents or conduct important business matters. 3. Use any dangerous machinery (chain saw, lawnmower, etc.). 4. Drink any alcoholic beverages. Should you have any questions or concerns after your procedure please call G-I 8am-5:00 pm. After 5:00 pm, holidays or weekends call [phone] a nd ask for the GI Doctor substation operator. Colon/Lower EUS/Retrograde Enteroscopy Post Lower Endoscopy Instructions -If you feel feverish, have a temperature of 101 degrees or higher, persistent n ausea and vomiting, abdominal pain or dark stools; please notify your nurse or G I physician. -You may have abdominal cramping following the procedure this can be relieved by belching or passing air. -If you have redness or swelling at the IV site, place a warm, wet washcloth ove r the affected areas for 15 minutes, 3-4 times a day until the redness subsides. If symptoms continue for 2-3 days, contact your regular physician. - If you have bleeding from your bowels over 2 tablespoons and increasing, pleas e notify your physician. A small amount of bleeding is normal if a biopsy or po lyps were taken. - You may resume all your routine medications, if medications need to be held yo ur physician and/or nurse will notify you post procedure. SPECIFIC INSTRUCTIONS I OUTPATIENTS: B. Because of sedation and lack of coordination, UNTIL TOMORROW, DO NOT: 5. Operate any motorized vehicle - this includes driving. 6. Sign any legal documents or conduct important business matters. 7. Use any dangerous machinery (chain saw, lawnmower, etc.). 8. Drink any alcoholic beverages. Should you have any questions or concerns after your procedure please call M-F 8am-5:00 pm. After 5:00 pm, holidays or weekends call [phone] a nd ask for the GI Doctor substation operator. documented in this encounter Medications at Time of Discharge Start Date End Date Medication Sig Dispensed Refills cetirizine (ZYRTEC) 10 mg Take 10 mg by 0 tablet mouth every morning. 02/05/2017 clobetasol (TEMOVATE) Apply to 0 0.05 % topical cream affected area twice daily as needed diphenhydrAMINE (BENADRYL Take 25 mg by 0 ALLERGY) 25 mg tablet mouth every 6 hours as needed for Sleep. folic acid (FOLVITE) 1 mg Take 1 mg by 0 tablet mouth daily. mggnbytf-ganqypiaw-Y-doug Take 500 mg 0 anese 500-400-2-0.33 mg [...] mcg tablet by mouth every 48 hours. magnesium oxide (MAG-OX) Take 400 mg 0 400 mg (241.3 mg by mouth magnesium) tablet twice daily. 07/06/2018 metoprolol tartrate Take one 180 tablet 3 (LOPRESSOR) 37.5 mg tablet by tablet mouth twice daily. nitroglycerin (NITROSTAT) Place 0.4 mg 0 0.4 mg tablet under tongue every 5 minutes as needed for Chest Pain. Max of 3 tablets, call 911. omeprazole DR(+) Take 40 mg by 0 (PRILOSEC) 40 mg capsule mouth twice daily. ondansetron (ZOFRAN) 8 mg Take 8 mg by 0 tablet mouth every 8 hours as needed for Nausea or Vomiting. 04/08/2018 pramoxine/zinc oxide Insert or 28 g 0 (TRONOLANE) 1% / 5% Apply to topical cream rectal area as directed daily as needed (For Hemorrhoids). tiZANidine (ZANAFLEX) 4 Take 4 mg by 0 mg tablet mouth at bedtime daily. 02/27/2018 traMADol (ULTRAM) 50 mg Take one 30 tablet 0 tablet tablet by mouth every 6 hours as needed for Pain. 10/08/2018 digoxin (LANOXIN) 125 mcg Take 125 mcg 0 tablet by mouth daily. 06/18/2018 09/30/2018 senna/docusate Take one 0 (SENOKOT-S) 8.6/50 mg tablet by tablet mouth at bedtime daily. 06/18/2018 09/30/2018 simethicone (MYLICON) 80 Chew one 30 tablet 0 mg chew tablet tablet by mouth every 6 hours as needed for Flatulence. documented as of this encounter Progress Notes * Antonella Anguiano RN - 09/07/2018 7:47 AM CDT Patient's port accessed with 1.0" Gee needle utilizing sterile technique. Bloo d aspirated and port was flushed with 10 cc of normal saline. Sterile dressing a pplied. LR running TKO. documented in this encounter H&P Notes * Antolin Erazo - 09/07/2018 7:18 AM CDT Pre Procedure History and Physical/Sedation Plan Name: Deborah Fields : 1955 Age: 63 y.o. Admission Date: 09/07/2018 Procedure Date: 09/07/2018 Planned Procedure(s): EGD with possible APC/colonoscopy Sedation/Medication Plan: MAC (Monitored Anesthesia Care) Discussion/Reviews: Physician has discussed risks and alternatives of this type of sedation and above planned procedures with patient Active Problems: * No active hospital problems. * Chief Complaint: Chronic blood loss anemia w/ cirrhosis (small EV and portal hy pertensive gastropathy and GAVE), possible Long's (presumed C0M5), hx of pers onal polyps History of Present Illness: Deborah Fields is a 63 y.o. female with history of c ryptogenic cirrhosis (?TANG) and HFrEF, CKD, hypothyroidism, obesity PMH: Past Medical History: Diagnosis Date Acquired hypothyroidism Arthritis Back pain Bleeding disorder (HCC) CAD (coronary artery disease), tetlin coronary artery 02/16/2018 Chronic diastolic heart failure (HCC) 03/31/2018 Coronary artery disease Diabetes mellitus (HCC) Type II Essential hypertension 02/23/2018 Hypertension Stomach disorder Vision decreased Current medications: No current facility-administered medications on file prior to encounter. Current Outpatient Medications on File Prior to Encounter Medication Sig Dispense Refill cetirizine (ZYRTEC) 10 mg tablet Take 10 [...] tablet Take 1 mg by mouth daily. qhzmbgct-lkyrluccn-V-manganese 500-400-2-0.33 mg cap Take 500 mg by mouth tw ice daily. insulin aspart U-100 (NOVOLOG) 100 unit/mL injection Inject four Units under the skin three times daily with meals. 10 mL 30 insulin NPH (HUMULIN N NPH U-100 INSULIN) 100 unit/mL injection Inject fourt een Units under the skin every morning. 10 mL 30 Insulin Syringe-Needle U-100 (BD INSULIN SYRINGE ULTRA-FINE) 0.3 mL 31 gauge x 5/16 syrg Use four times daily with Insulin 100 each 0 magnesium oxide (MAG-OX) 400 mg (241.3 mg magnesium) tablet Take 400 mg by m outh twice daily. nitroglycerin (NITROSTAT) 0.4 mg tablet [...] as directed daily as needed (For Hemorrhoids). 28 g 0 senna/docusate (SENOKOT-S) 8.6/50 mg tablet Take one tablet by mouth at bedt noel daily. simethicone (MYLICON) 80 mg chew tablet Chew one tablet by mouth every 6 luis m rs as needed for Flatulence. 30 tablet 0 tiZANidine (ZANAFLEX) 4 mg tablet Take 4 mg by mouth at bedtime daily. traMADol (ULTRAM) 50 mg tablet Take one tablet by mouth every 6 hours as nee ded for Pain. 30 tablet 0 PSH: Past Surgical History: Procedure Laterality Date HX HEART CATHETERIZATION 2017 CORONARY STENT PLACEMENT 2016 CORONARY ARTERY BYPASS GRAFT N/A 02/16/2018 CORONARY ARTERY BYPASS WITH ARTERIAL GRAFT - 4 GRAFTS (Internal Mammary Artery and Endovascular Vein [place]) performed by Lance Pal MD at [facility] HX MAZE N/A 02/16/2018 MAZE PROCEDURE performed by Lance Pal MD at [facility] UPPER GASTROINTESTINAL ENDOSCOPY N/A 03/29/2018 ESOPHAGOGASTRODUODENOSCOPY performed by Dannielle Covington MD at ENDO/GI COLONOSCOPY N/A 04/07/2018 COLONOSCOPY performed by Skinny Marshall MD at ENDO/GI ANKLE SURGERY Left ankle reconstruction COLONOSCOPY HX KNEE ARTHROSCOPY Left HX TONSIL AND ADENOIDECTOMY TUBAL LIGATION UPPER GASTROINTESTINAL ENDOSCOPY Pertinent medical/surgical history reviewed. SH: Social History Socioeconomic History Marital status: Spouse name: Not on file Number of children: Not on file Years of education: Not on file Highest education level: Not on file Occupational History Not on file Tobacco Use Smoking status: Former Smoker Packs/day: 2.00 Years: 10.00 Pack years: 20.00 Types: Cigarettes Last attempt to quit: 09/28/1981 Years since quittin.9 Smokeless tobacco: Never Used Substance and Sexual Activity Alcohol use: Yes Comment: Seldom Drug use: No Sexual activity: Not on file Other Topics Concern Not on file Social History Narrative Not on file FH: Family History Problem Relation [...] Grandmother Diabetes Paternal Grandmother Cancer Paternal Grandfather Allergies: Oxycontin [oxycodone]; Sulfa (sulfonamide antibiotics); Duricef [cefadroxil]; Pr avastatin; and Simvastatin Review of Systems: The patient feels otherwise well, denies any fever/chills, SOB, N/V, abd pain, d ysuria. Physical Exam: There were no vitals filed for this visit. General appearance: alert, cooperative and no distress Neurologic: Grossly normal Lungs: nonlabored respirations Heart: warm, well perfused Abdomen: ND, soft, normal BS, no organomegaly, no masses Extremities: extremities normal, atraumatic, no cyanosis or edema Airway: head and neck: no abnormalities noted. Anesthesia Classification: ASA III (A patient with a severe systemic disease th at limits activity, but is not incapacitating) NPO Status: Acceptable Status: Not Lab/Radiology/Other Diagnostic Tests:Labs: reviewed, WNL CXR: Not obtained Consults: Anesthesiology Antolin Erazo MD Pager [phone] Associated attestation - Lynette Diana MD - 09/07/2018 8:04 AM CDT ATTESTATION I personally performed the dempsey portions of the E/M visit, discussed case with th e Fellow and concur with documentation of history, physical exam, assessment, an d treatment plan unless otherwise noted. documented in this encounter Plan of Treatment Order Schedule Name Priority Associated Diagnoses ONCE for 1 Occurrences starting 09/07/2018 SURGICAL PATHOLOGY Routine GAVE (gastric antral vascular ectasia) Cirrhosis of liver without ascites, unspecified hepatic cirrhosis type (HCC) documented as of this encounter Procedures Comments Procedure Name Priority Date/Time Associated Diagnosis SURGICAL PATHOLOGY 09/07/2018 9:54 AM CDT COLONOSCOPY [...] CDT TELEMETRY STRIPS-SCAN 09/07/2018 12:00 AM CDT documented in this encounter Results * SURGICAL PATHOLOGY (09/07/2018 9:54 AM CDT) PATHOLOGY [facility] [email or web address] Department of Pathology and Laboratory Medicine [address] [place] [address] Surgical Pathology Office:[phone] :[phone] SURGICAL PATHOLOGY REPORT NAME: DEBORAH FIELDS Jr SURG PATH #: [id number] MR #: [id number] SPECIMEN CLASS: SR BILLING #: [id number] ALT ID #:LOCATION: [facility] DATE OF PROCEDURE: 09/07/2018 AGE:63 SEX: F [...] material indicated in this report. +++ +++ lkr/09/08/2018 ############################## ############################## ############ Material Received: A: descending [...] is entirely submitted in cassette B1. (lmt) lt09/07/2018 Performing Organization Address City/[facility]/Zipcode Phone Number [facility] [address] [place] [address] * COLONOSCOPY (09/07/2018 8:12 AM CDT) Provation Patient Name: Donnie CASTILLO OTHER Report Procedure Date: 09/07/2018 8:12 RESULTS AM [facility]: [id number] Date of : 1955 Gender: Female Attending Physician: Lynette Diana MD Procedure: Colonoscop y Indications: Suspected adenomatous polyps in the colon-incomplete colonoscopy 03/2018 Providers: Lynette Diana MD (Doctor), Antolin Erazo (Fellow), Mariana Suarez RN (Nurse), Chapincito Hameed (Concrete Inspector) Referring Physician: Naima Field Medications: Propofol per [...] 27 seconds Procedure Code(s): --- Professional --- 93744, GC, Colonoscopy, flexible; with removal of tumor(s), polyp(s), or other lesion(s) by snare technique 16455, 59, Colonoscopy, flexible; with biopsy, single or multiple Diagnosis Code(s): --- Professional --- D12.2, Benign neoplasm of ascending colon D12.4, Benign neoplasm of descending colon D12.5, Benign neoplasm of sigmoid colon K62.5, Hemorrhage of anus and rectum CPT copyright 2017 [employer]. All rights reserved. The codes documented in this report are preliminary and upon business office manager review may be revised to meet current [...] Report Procedure Date: 09/07/2018 8:01 RESULTS AM CSN: [id number] Date of : 1955 Gender: Female Attending Physician: Lynette Diana MD Procedure: Upper GI endoscopy Indications: Hx of chronic blood loss 2/2 PHG, GAVE. Requested re look. Providers: Lynette Diana MD (Doctor), Antolin Erazo (Fellow), Mariana Suarez RN (Nurse), Chapincito Hameed (Concrete Inspector) Referring Physician: Naima Field Medications: Propofol per [...] 29 seconds Procedure Code(s): --- Professional --- 35794, GC, Esophagogastroduodenoscopy, flexible, transoral; diagnostic, including collection of specimen(s) by brushing or washing, when performed (separate procedure) Diagnosis Code(s): --- Professional --- K22.8, Other specified diseases of esophagus I85.00, Esophageal varices without bleeding K76.6, Portal hypertension K31.89, Other diseases of stomach and duodenum K31.819, Angiodysplasia of stomach and duodenum without bleeding CPT copyright 2017 [employer]. All rights reserved. The codes documented in this report are preliminary and upon business office manager review may be revised to meet current [...] POC 120 (H) 70 - 100 MG/DL [facility] Performing Organization Address City/State/Zipcode Phone Number [facility] [address] [place] [address] * TELEMETRY STRIPS-SCAN (09/07/2018 12:00 AM CDT) Narrative Performed At Ordered by an unspecified provider. documented in this encounter Visit Diagnoses Diagnosis GAVE (gastric antral vascular ectasia) Angiodysplasia of stomach and duodenum (without mention of hemorrhage) Cirrhosis of liver without ascites, unspecified hepatic cirrhosis type (HCC) documented in this encounter Administered Medications Action Date Dose Rate Site Medication Order MAR Action 09/07/2018 7:49 AM CDT 1,000 mL 20 mL/hr lactated ringers infusion Given - New 1,000 mL, 1,000 mL, Intravenous, at 20 Bag mL/hr, CONTINUOUS, Starting Thu09/07/18 at 0800, Until Thu09/07/18 at 1246 documented in this encounter
--- OUTSIDE RECORDS SUMMARY | 2018-11-02 16:23 | XMS REPORT | Encounter Summary ---
Author Author [facility] Organization [facility] Address Unknown Phone Unavailable Care Team Providers Care Motor Assembly Supervisor Name Role Phone Carla Wilson MD PCP Naima Field MD Unavailable Winnie Jorge MD Unavailable Encounter Details Care Team Description Date Type Department Yan Zavaleta Elevated liver enzymes 09/07/2018 Orders Only The [address] [address] Social History Date Tobacco Use [...] Date/Time Associated Diagnosis CBC AND DIFF Routine 09/06/2018 Elevated liver enzymes 10:30 AM CDT COMPREHENSIVE METABOLIC Routine 09/06/2018 Elevated liver enzymes PANEL 10:30 AM CDT documented in this encounter Results * CBC AND DIFF (09/06/2018 10:30 AM CDT) White Blood 3.1 (L) 4.3 - 11.0 [facility] Cells RBC 2.60 (L) 4.35 - 5.85 [facility] Hemoglobin 8.1 (L) 11.5 - 16.0 [facility] Hematocrit 25 (L) 35 - 52 [facility] MCV 96 [facility] MCH 31 [facility] MCHC 33 [facility] RDW 14.5 [facility] Platelet Count 115 (L) 130 - 400 [facility] MPV 10.3 [facility] Neutrophils 50 [facility] Lymphocytes 32 [facility] Monocytes 10 [facility] Eosinophil 7 [facility] Basophil 1 [facility] Absolute 1.6 (L) 1.8 - 7.8 [facility] Neutrophil Count Absolute Lymph 1.0 [facility] Count Absolute 0.3 [facility] Monocyte Count Absolute 0.2 [facility] Eosinophil Count Absolute 0.0 [facility] Basophil Count Specimen Blood Narrative Performed At [facility] Outside Lab Verified by Yan Zavaleta on 09/07/2018. Performing Organization Address City/State/Zipcode Phone Number [facility] * COMPREHENSIVE METABOLIC PANEL (09/06/2018 10:30 AM CDT) Sodium 140 [facility] Potassium 4.4 [facility] Chloride 107 [facility] CO2 24 [facility] Anion Gap 9 [facility] Blood Urea 27 (H) 7 - 18 [facility] Nitrogen Creatinine 2.06 (H) 0.60 - 1.30 [facility] eGFR Non 24 [facility] Glucose 96 [facility] Calcium 9.4 [facility] Total Bilirubin 0.8 [facility] Alk Phosphatase 65 [facility] AST (SGOT) 16 [facility] ALT (SGPT) <6 [facility] Total Protein 6.6 [facility] Albumin 3.1 (L) 3.2 - 4.5 [facility] Specimen Blood Narrative Performed At [facility] Outside Lab Verified by Yan Zavaleta on 09/07/2018. Performing Organization Address City/State/Zipcode Phone Number [facility] documented in this encounter Visit Diagnoses Diagnosis Elevated liver enzymes Nonspecific elevation of levels of transaminase or lactic acid dehydrogenase (LDH) documented in this encounter
--- OUTSIDE RECORDS SUMMARY | 2018-11-02 16:23 | XMS REPORT | Encounter Summary ---
Author Author [facility] Organization [facility] Address Unknown Phone Unavailable Care Team Providers Care Market Researcher Name Role Phone Carla Wilson MD PCP Naima Field MD Unavailable Winnie Jorge MD Unavailable Reason for Visit * Reason Comments Weight Gain Encounter Details Care Team Description Date Type Department Oliverio Mcneil LPN Weight Gain 09/08/2018 Telephone [facility] [id number] [place], [place] [id number] Social History Date Tobacco Use Types Packs/Day [...] as of this encounter Miscellaneous Notes * Addendum Note - Pat Combs RN - 09/17/2018 3:13 PM CDT Addended by: PAT COMBS on: 09/17/2018 03:13 PM Modules accepted: Orders * Telephone Encounter - Pat Combs RN - 09/17/2018 2:58 PM CDT Labs reviewed by Dr. Nelson. Orders given for patient to stop Bumex and Potassium and recheck labs on Thursday next week. Called patient and LMOM on preferred line to call back. Left generic VM with instructions on cell phone. Lab requisition faxed to [facility]. * Telephone Encounter - Amee Vazquez RN - 09/17/2018 9:36 AM CDT Received refill request for Bumex today. Noted Bumex not on patient's medication list. Per last notes, Dr. Nelson had asked patient to increase Bumex to 3mg BID. I called and spoke to patient. She states she has been taking 3mg Bumex BID [facility] e 09/15. Patient states her edema has gone down to about +1. She states her breath ing is improved. Patient weighed 203 pounds yesterday and weighed herself while we were on the phone, and states she weighs 193.8. Patient reports she has been urinating constantly the past few days. I asked patient to hold Bumex this AM and have labs drawn SUNG. I reviewed this update with Dr. Nelson, and he agrees with this plan. Will determine further Bumex /Potassium dose based on labs and will send script at that time. Called [facility] and verified they will be drawing patient's lab s today. Spoke to [place] and [employer], and she said she would make sure BMP would get faxed SUNG to right fax. * Telephone Encounter - Oliverio Mcneil LPN - 09/16/2018 2:53 PM CDT Pt called, confirmed with her that labs are to be done Thursday, pt agreeable. Lab faxed to preferred lab. * Addendum Note - Alice Esposito RN - 09/15/2018 5:03 PM CDT Addended by: ALICE ESPOSITO on: 09/15/2018 05:03 PM Modules accepted: Orders * Telephone Encounter - Alice Esposito RN - 09/15/2018 4:58 PM CDT Reviewed call with Dr. Nelson, Pt to increase bumex to 3mg BID and start potassium 20mEq BID and get labs redrawn on Thursday (not ) Left detailed message on patient preferred line with medication changes, includi ng adding potassium. Prescription sent to pharmacy in [place], [place]. Asked that labs be redrawn on Thursday instead of . Asked for call back co nfirming patient had received message with medication changes. * Telephone Encounter - Oliverio Mcneil LPN - 09/15/2018 12:40 PM CDT Pt called from home phone reporting even with bumex BID she is gaining weight. Fernanda huffman back home phone to assess: Patient Status Deborah Fields is an established patient with [facility]. Signs and Symptoms She reports the following symptoms: "3+ pitting edema on my legs" Firmer abdomen SOA on exertion Dizziness and light headedness daily Medication Review Pt taking bumex BID for past 3 days as instructed Recent Salt Intake Drinking 6-8 glasses daily Date Weight B/P 09/15 204 bumex BID 09/14 203.8 bumex BID 09/13 202.6 bumex BID 09/12 201 09/11 201.2 09/10 200.8 Called [facility] and requested BMP results to Heart Failure Rig [facility]t * Addendum Note - Alice Esposito RN - 09/13/2018 9:49 AM CDT Addended by: ALICE ESPOSITO on: 09/13/2018 09:49 AM Modules accepted: Orders * Telephone Encounter - Alice Esposito RN - 09/13/2018 9:29 AM CDT Spoke with patient on the phone. Pt reports Bumex was stopped at last OV due to kidney function. Pt will get labs drawn today and next Thursday. Pt verbalized understanding of taking medication. Labs faxed to [facility] * Telephone Encounter - Alice Esposito RN - 09/13/2018 9:24 AM CDT Felisa Sneed MD Lang, Katherine, RN Cc: Alice Esposito RN Caller: Unspecified (5 days ago, 9:25 AM) She should take Bumex 1mg as follows: Take one pill twice a day for three days. Take one pill daily on most days. If there is fluid retention or weight gain, OK to take a second pill in the afte rnoon. If there is a day when you are drinking very little or throwing up, please skip the Bumex on that day. Let's get another set of labs and call to check her weight and BP in a week. Thanks, JST * Telephone Encounter - Oliverio Mcneil LPN - 09/08/2018 9:28 AM CDT Pt called reporting weight gain. Called to assess: Patient Status Deborah Fields is an established patient with [facility]. Signs and Symptoms She reports the following symptoms: SOA with minimal exertion 2+ left over last week No abdomen swelling Light headedness when getting up and moving, says daily. Sees white on ground at times "looks like there is snow on the gound" "this only happens when I'm dizzy" Medication Review She took her medications as prescribed and did not miss any doses. Recent Salt Intake Drinking 32 oz daily Date Weight B/P Pulse 3/27 3/26 121/69 09/06 204.8 09/05 09/04 09/03 09/02 09/01 08/31 08/30 199 Pt reports weights are from when she goes to cancer center weekly, pt encouraged to weigh at home daily and write down weights. documented in this encounter Plan of Treatment Order Schedule Name Priority Associated Diagnoses Expected: 09/20/2018 (Approximate), Expires: 09/14/2019 BASIC METABOLIC PANEL Routine Chronic diastolic heart failure (HCC) Expected: 09/17/2018 (Approximate), Expires: 09/18/2019 BASIC METABOLIC PANEL Routine Chronic diastolic heart failure (HCC) documented as of this encounter Results * BASIC [...] [facility] eGFR [facility] [place]at[place] Anion Gap 8 [facility] Specimen [...] review. Performing Organization Address City/State/Zipcode Phone Number [facility] [address] [place] [address] documented in this encounter Visit Diagnoses Diagnosis Chronic diastolic heart failure (HCC) - Primary Chronic diastolic heart failure documented in this encounter
--- OUTSIDE RECORDS SUMMARY | 2018-11-02 16:23 | XMS REPORT | Encounter Summary ---
Author Author [facility] Organization [facility] Address Unknown Phone Unavailable Care Team Providers Care Automatic Hemmer Name Role Phone Carla Wilson MD PCP [...] hepatic cirrhosis type (HCC) [K74.60] P rocedures MI COLONOSCOPY FLX DX W/COLLJ SPEC WHEN PFRMD MI EGD ABLATE TUMOR POLYP/LESION W/DILATION& WIRE COLONOSCOPY DIAGNOSTIC WITH SPECIMEN COLLECTION BY BRUSHING/ WASHING - FLEXIBLE ESOPHAGOGASTRODUOD ENOSCOPY WITH ABLATION TUMOR/ POLYP/ OTHER LESION - FLEXIBLE Encounter Details Care Team Description Date Type Department Mona Tapia, AEROSPACE MECHANIC [id number] [place] [address] [phone] 09/07/2018 Anesthesia [facility] [address] [place], [place] [id number] Anesthesia Record Responsible Anesthesiologist Anesthesia Start Time Anesthesia Stop Time Procedure Name Vernon Galan MD 09/07/18 0759 09/07/18 0943 COLONOSCOPY DIAGNOSTIC WITH SPECIMEN COLLECTION BY BRUSHING/ WASHING - FLEXIBLE (N/A ) Date Time Event Comment 724 AN Equip Check 2018 0755 0758 Out of Pre Procedure 0759 Anes Start 0759 An Start Data 0759 Start Supplemental O2 0759 In Room 0806 Anesthesia Ready 0806 Quick Note Pt positioned self Left lateral to comfort prior to Propofol start; eyes monitored, neck in neutral alignment. 0807 Proc Start 0814 Quick Note Turning bed for colonoscopy 0821 IV Placed 0941 an stop data 0943 Handoff to RN I completed my SBAR handoff to the receiving nurse. 0943 An Stop Meds Name Total midazolam (VERSED) 1 mg/mL injection 2 mg fentaNYL PF (SUBLIMAZE) injection 100 mcg lidocaine (2%) 200 mg/10mL Injection 40 mg syringe propofol (DIPRIVAN) infusion 867.05 mg glycopyrrolate (ROBINUL) 0.2mg/mL 0.15 mg injection ePHEDrine 50 mg/mL 50 mg in sodium 50 mg chloride PF 0.9% 5 mL IV syringe ondansetron (ZOFRAN) injection 4 mg lactated ringers infusion 900 mL * Name O2 N2O Inspired N2O * No blood administrations on file. Removal Type Details Placement Wounds 02/16/18; 183; Chest; Surgical 02/16/18 183 by Gregg, (NOT for Incision; silverlon and wound vac (1 Nichelle RN Pressure sponge) Injuries) Wounds 02/16/18; 183; Leg; [...] for Surgical Incision; old chest tube site Erendira RN Pressure Injuries) Wounds 04/01/18; 1100; Mid; Sternum; Surgical 04/01/18 1100 by Bart, (NOT for Incision Samantha, RN Pressure Injuries) Wounds 04/01/18; 1100; Left, Lower; Leg; 04/01/18 1100 by Bart, (NOT for Surgical Incision Samantha, RN Pressure Injuries) Wounds 04/03/18; 0523; Posterior; Leg; Skin 04/03/18 0523 by Alma, (NOT for Tear; skin tear from bedside commode THOMPSON Anna Pressure Injuries) Wounds 06/01/18; 1835; Right; Groin; Skin Tear 06/01/18 1835 by Myriam, (NOT for THOMPSON Suazo Pressure Injuries) Wounds 07/07/18; 1156; Right, Upper; Abdomen; 07/07/18 1156 by Heron, (NOT for Puncture Wound; paracentesis THOMPSON Alvarado Pressure Injuries) 09/07/18 1025 by Janell Jenkins RN Portacath 07/01/18; 1550; Powerport; 09/07/18; 07/01/18 1550 by Jeniffer Glaser 09/07/18 1025 by Janell Jenkins RN Peripheral 09/07/18; 0821; R; Hand; 20 G (by 09/07/18 0821 by JUAN A Tapia MD); 1; 09/07/18; 1025 Mona, [facility] 09/07/18 1025 by Janell Jenkins RN Peripheral 09/07/18; 0824; Provider; R; 20 G; 1; 09/07/18 0824 by JUAN A Suarez 09/07/18; 1025 THOPMSON Peña documented in this encounter Social History Date Tobacco [...] - sometimes documented as of this encounter OR Notes * Anesthesia Postprocedure Evaluation - Vernon Galan MD - 09/07/2018 10:11 AM CDT Post-Anesthesia Evaluation Name: Deborah Fields : 1955 Age: 63 y.o. S ex: female Procedure Date: 09/07/2018 Procedure: Procedure(s): COLONOSCOPY DIAGNOSTIC WITH SPECIMEN COLLECTION BY BRUSHING/ WASHING - FLEXIBLE ESOPHAGOGASTRODUODENOSCOPY WITH ABLATION TUMOR/ POLYP/ OTHER LESION - FLEXIBLE COLONOSCOPY WITH SNARE REMOVAL TUMOR/ POLYP/ OTHER LESION Surgeon: Surgeon(s): Lynette Diana MD Razmdjou, Shadi Post-Anesthesia Vitals BP: 130/50 (09/07 1000) Temp: 36.3 C (97.3 F) (09/07 0954) Pulse: 72 (09/07 1000) Respirations: 23 PER MINUTE (09/07 1000) SpO2: 99 % (09/07 1000) O2 Delivery: Nasal Cannula (09/07 0954) SpO2 Pulse: 72 (09/07 1000) Post Anesthesia Evaluation Note Evaluation location: Pre/Post Patient participation: recovered; patient participated in evaluation Level of consciousness: alert Pain score: 0 Pain management: adequate Hydration: normovolemia Temperature: 36.0C - 38.4C Airway patency: adequate Perioperative Events Perioperative events: no Post-op nausea and vomiting: no PONV Postoperative Status Cardiovascular status: hemodynamically stable Respiratory status: spontaneous ventilation Perioperative Events Perioperative Event: No Emergency Case Activation: No * Anesthesia Preprocedure Evaluation - Vernon Galan MD - 09/07/2018 7:42 AM CDT Anesthesia Pre-Procedure Evaluation Name: Deborah Fields : 1955 Age: 63 y.o. S ex: female Procedure Date: 09/07/2018 Procedure: Procedure(s): COLONOSCOPY DIAGNOSTIC WITH SPECIMEN COLLECTION BY BRUSHING/ WASHING - FLEXIBLE ESOPHAGOGASTRODUODENOSCOPY WITH ABLATION TUMOR/ POLYP/ OTHER LESION - FLEXIBLE Physical Assessment Vital Signs (last filed in past 24 hours): Height: 162.6 cm (64") (09/08 731) Weight: 90.7 kg (200 lb) (09/08 731) Patient History Allergies Allergen Reactions Oxycontin [Oxycodone] HIVES and ITCHING Sulfa (Sulfonamide Antibiotics) RASH Duricef [Cefadroxil] NAUSEA AND VOMITING Pravastatin NAUSEA AND VOMITING Simvastatin NAUSEA AND VOMITING Current Medications Medication Directions cetirizine (ZYRTEC) 10 mg tablet Take 10 mg by mouth every morning. clobetasol (TEMOVATE) 0.05 % topical cream Apply to affected area twice daily as needed digoxin (LANOXIN) 125 mcg tablet Take 125 mcg by mouth daily. diphenhydrAMINE (BENADRYL ALLERGY) 25 mg tablet Take 25 mg by mouth every 6 hour s as needed for Sleep. folic acid (FOLVITE) 1 mg tablet Take 1 mg by mouth daily. slkdifdi-mfefwxesg-U-manganese 500-400-2-0.33 mg cap Take 500 mg by mouth twice daily. insulin aspart U-100 [...] Take 175 mcg by mouth every 48 hours. magnesium oxide (MAG-OX) 400 mg (241.3 mg magnesium) tablet Take 400 mg by mouth twice daily. metoprolol tartrate (LOPRESSOR) 37.5 mg tablet Take one tablet by mouth twice da masood. nitroglycerin (NITROSTAT) 0.[address] 0.4 mg under tongue every 5 minute s as needed for Chest Pain. Max of 3 tablets, call 911. omeprazole DR(+) (PRILOSEC) 40 mg capsule Take 40 mg by mouth twice daily. ondansetron (ZOFRAN) 8 mg tablet Take 8 mg by mouth every 8 hours as needed for Nausea or Vomiting. pramoxine/zinc oxide (TRONOLANE) 1% / 5% topical cream Insert or Apply to recta l area as directed daily as needed (For Hemorrhoids). senna/docusate (SENOKOT-S) 8.6/50 mg tablet Take one tablet by mouth at bedtime daily. simethicone (MYLICON) 80 mg chew tablet Chew one tablet by mouth every 6 hours a s needed for Flatulence. tiZANidine (ZANAFLEX) 4 mg tablet Take 4 mg by mouth at bedtime daily. traMADol (ULTRAM) 50 mg tablet Take one tablet by mouth every 6 hours as needed for Pain. Review of Systems/Medical History Patient summary reviewed Pertinent labs reviewed PONV Screening: Female gender and Non-smoker No history of anesthetic complications No family history of anesthetic complications Airway - negative Pulmonary Home oxygen use Cardiovascular Recent diagnostic studies: echocardiogram Interpretation Summary 1. Technically difficult study with poor visualization of cardiac structures. 2. Normal left ventricular systolic function with an EF of 50-55%. 3. No regional wall motion abnormalities. 4. Unable to assess diastolic function, there was fusion of the E and A waves. 5. RV is mildly dilated, function is probably normal. Quantitative parameters w ere normal. 6. Mild to moderate MR. 7. Mild to moderate TR. 8. Aortic sclerosis without stenosis. 9. Peak PAP of 41 mmHg. 10. Normal aortic root size. 11. No pericardial effusion. Exercise tolerance: <4 METS Beta Reina therapy: No Beta blockers within 24 hours: n/a Hypertension, Coronary artery disease Dysrhythmias CHF Hyperlipidemia GI/Hepatic/Renal Hepatitis Liver disease GI bleeding Neuro/Psych - negative Musculoskeletal Back pain Arthritis Endocrine/Other Diabetes; using insulin Hypothyroidism Anemia Obesity Physical Exam Airway Findings Neck ROM: full Mouth opening: good Airway patency: adequate Dental Findings: Upper dentures Cardiovascular Findings: Rhythm: regular Rate: normal Other findings: murmur Pulmonary Findings: Decreased breath sounds. Abdominal Findings: Abdomen soft Bowel sounds normal. Neurological Findings: Comments: A&O X 3 Diagnostic Tests Hematology: Lab Results Component Value Date HGB 8.9 08/23/2018 HCT 27 08/23/2018 PLTCT 137 08/23/2018 WBC 4.5 08/23/2018 NEUT 72 07/01/2018 ANC 3.80 07/01/2018 ALC 0.70 07/01/2018 CASI 12 07/01/2018 AMC 0.60 07/01/2018 EOSA 3 07/01/2018 ABC 0.00 07/01/2018 MCV 94 08/23/2018 MCH 31 08/23/2018 MCHC 33 08/23/2018 MPV 10.3 08/23/2018 RDW 15.1 08/23/2018 General Chemistry: Lab Results Component Value Date NA 142 08/23/2018 K 4.5 08/23/2018 CL 101 08/23/2018 CO2 29 08/23/2018 GAP 12 08/23/2018 BUN 41 08/23/2018 CR 3.66 08/23/2018 GLU 110 08/23/2018 CA 9.1 08/23/2018 ALBUMIN 3.3 07/01/2018 LACTIC 0.8 02/17/2018 OBSCA 1.17 02/17/2018 MG 2.0 06/18/2018 TOTBILI 0.6 07/01/2018 PO4 2.6 06/07/2018 Coagulation: Lab Results Component Value Date PTT 30.2 04/08/2018 INR 1.1 07/01/2018 Anesthesia Plan ASA score: 4 Plan: MAC Induction method: intravenous NPO status: acceptable Informed Consent Anesthetic plan and risks discussed with patient. Use of blood products discussed with patient Blood Consent: consented Plan discussed with: anesthesiologist, AEROSPACE MECHANIC and surgeon/proceduralist. documented in this encounter Plan of Treatment Not on filedocumented as of this encounter Visit Diagnoses Not on filedocumented in this encounter Administered Medications Action Date Dose Rate Site Medication Order MAR Action 09/07/2018 9:00 AM CDT 5 mg ePHEDrine 50 mg/mL 50 mg in sodium Bolus chloride PF 0.9% 5 mL IV syringe 5 mL, INTRA-PROCEDURE MED(CONT), Starting 09/07/18 at 0841, Until Thu09/07/18 at 09, Anesthesia Intra-op 5 mg Bolus 09/07/2018 8:59 AM CDT 15 mg Bolus 09/07/2018 8:49 AM CDT 09/07/2018 9:10 AM CDT 25 mcg fentaNYL citrate PF (SUBLIMAZE) Given injection INTRA-PROCEDURE MED, Starting Thu09/07/18 at 0759, Until Thu09/07/18 at 09, Anesthesia Intra-op 25 mcg Given 09/07/2018 8:56 AM CDT 50 mcg Given 09/07/2018 7:59 AM CDT 09/07/2018 8:37 AM CDT 0.15 mg glycopyrrolate (ROBINUL) injection Given INTRA-PROCEDURE MED, Starting Thu09/07/18 at 0837, Until Thu09/07/18 at 945, Anesthesia Intra-op 09/07/2018 7:59 AM CDT 40 mg lidocaine (PF) injection Given INTRA-PROCEDURE MED, Starting Thu09/07/18 at 0759, Until Thu09/07/18 at 945, Anesthesia Intra-op 09/07/2018 9:11 AM CDT 0.5 mg midazolam (VERSED) injection Given Intravenous, INTRA-PROCEDURE MED, Starting Thu09/07/18 at 0759, Until Thu09/07/18 at 945, Anesthesia Intra-op 0.5 mg Given 09/07/2018 8:58 AM CDT 1 mg Given 09/07/2018 7:59 AM CDT 09/07/2018 8:53 AM CDT 4 mg ondansetron (ZOFRAN) injection Given INTRA-PROCEDURE MED, Starting Thu09/07/18 at 0853, Until Thu09/07/18 at 945, Anesthesia Intra-op 09/07/2018 9:28 AM CDT propofol (DIPRIVAN) infusion Given - New 20 mL, Intravenous, INTRA-PROCEDURE Bag MED(CONT), Starting Thu09/07/18 at 0804, Until Thu09/07/18 at 945, Anesthesia Intra-op 25,000 mcg Bolus 09/07/2018 9:19 AM CDT 120 mcg/kg/min 65.3 mL/hr Dose/Rate Change 09/07/2018 9:15 AM CDT documented in this encounter
--- OUTSIDE RECORDS SUMMARY | 2018-11-02 16:23 | XMS REPORT | Encounter Summary ---
Author Author [facility] Organization [facility] Address Unknown Phone Unavailable Care Team Providers Care Filter Tank Tender Helper Head Name Role Phone Carla Wilson MD PCP Naima Field MD Unavailable Wninie Jorge MD Unavailable Emiliano Rodriguez APRN,SENIOR COMMISSIONS ANALYST-C 7 Reason for Visit * Reason Comments Medication Refill Encounter Details Care Team Description Date Type Department Felisa Sneed MD [address] [facility] [place], [place] [id number] Medication Refill 09/16/2018 Refill [facility] [address] [place] [address] [address] [place] [address] Social History Date Tobacco Use Types Packs/Day [...]
--- OUTSIDE RECORDS SUMMARY | 2018-11-02 16:23 | XMS REPORT | Encounter Summary ---
Author Author [facility] Organization [facility] Address Unknown Phone Unavailable Care Team Providers Care Water Treatment Plant Operator Name Role Phone Carla Wilson MD PCP Naima Field MD Unavailable Winnie Jorge MD Unavailable Encounter Details Care Team Description Date Type Department Lynette Diana MD 4000 [facility] [id number] [place] [address] Elevated liver enzymes (Primary Dx) 09/07/[address] [facility] [address] [address] Social History Date Tobacco Use [...] filedocumented as of this encounter Results * COMPREHENSIVE METABOLIC PANEL (09/06/2018 10:30 AM [...] Address City/State/Zipcode Phone Number LABDE INTERFACE * CBC AND DIFF (09/06/2018 10:30 AM [...] encounter Visit Diagnoses Diagnosis Elevated liver enzymes - Primary Nonspecific elevation of levels of transaminase or lactic acid dehydrogenase (LDH) documented in this encounter
--- OUTSIDE RECORDS SUMMARY | 2018-11-02 16:24 | XMS REPORT | Encounter Summary ---
Author Author [facility] Organization [facility] Address Unknown Phone Unavailable Care Team Providers Care Cinema Or Theatre Manager Name Role Phone Carla Wilson MD PCP Naima Field MD Unavailable Winnie Jorge MD Unavailable Reason for Visit * Reason Comments Appointment Question Encounter Details Care Team Description Date Type Department Lynette Diana MD [address] [address] Appointment Question 09/03/2018 Telephone [facility] [address] [address] Social History Date Tobacco Use [...] encounter Miscellaneous Notes * Telephone Encounter - Sofía Rhoades - 09/06/2018 1:21 PM CDT Deborah returned the missed call. She has questions regarding tomorrow's procedur e. Please call again. * Telephone Encounter - Glo Us RN - 09/06/2018 10:31 AM CDT Returned call- LVM. * Telephone Encounter - Alesha Jin - 09/03/2018 12:54 PM CDT Pt left VM, she has questions about the procedure she is scheduled for next . documented in this encounter Plan of Treatment Not on filedocumented as of this encounter Visit Diagnoses Not on filedocumented in this encounter
--- OUTSIDE RECORDS SUMMARY | 2018-11-02 16:24 | XMS REPORT | Encounter Summary ---
Author Author [facility] Organization [facility] Address Unknown Phone Unavailable Care Team Providers Care Direct Care Provider Name Role Phone Carla Wilson MD PCP Naima Field MD Unavailable Winnie Jorge MD Unavailable Reason for Visit * Reason Comments Labs Only Encounter Details Care Team Description Date Type Department Rina Ruano MA Labs Only 08/27/2018 Documentation [facility] [id number] [place] [address] Social History Date Tobacco Use Types Packs/Day [...] Comments Procedure Name Priority Date/Time Associated Diagnosis TSH WITH FREE T4 REFLEX Routine 08/23/2018 CBC AND DIFF Routine 08/23/2018 BASIC METABOLIC PANEL Routine 08/23/2018 BASIC METABOLIC PANEL Routine 08/17/2018 documented in this encounter Results * BASIC METABOLIC PANEL (08/23/2018) Sodium 142 OTHER OUTSIDE LAB Potassium 4.5 OTHER OUTSIDE LAB Chloride 101 OTHER OUTSIDE LAB CO2 29 OTHER OUTSIDE LAB Blood Urea 41 (H) 7 - 18 OTHER OUTSIDE Nitrogen LAB Creatinine 3.66 (H) 0.60 - 1.30 OTHER OUTSIDE LAB Glucose 110 (H) 70 - 105 OTHER OUTSIDE LAB Calcium 9.1 OTHER OUTSIDE LAB eGFR Non 13 OTHER OUTSIDE LAB South African eGFR OTHER OUTSIDE South African LAB Anion Gap 12 OTHER OUTSIDE LAB BUN/Creatinine 11 OTHER OUTSIDE Ratio LAB Specimen Blood - Blood Performing Organization Address City/State/Zipcode Phone Number OTHER OUTSIDE LAB * TSH WITH FREE T4 REFLEX (08/23/2018) TSH Thyroid 0.13 (L) 0.35 - 4.94 OTHER OUTSIDE Screen LAB T4-Free 1.63 (H) 0.70 - 1.48 OTHER OUTSIDE LAB Specimen Blood - Blood Performing Organization Address City/[facility]/Zipcode Phone Number OTHER OUTSIDE LAB * CBC AND DIFF (08/23/2018) White Blood 4.5 OTHER OUTSIDE Cells LAB RBC 2.88 (L) 4.35 - 5.85 OTHER OUTSIDE LAB Hemoglobin 8.9 (L) 11.5 - 16.0 OTHER OUTSIDE LAB Hematocrit 27 (L) 35 - 52 OTHER OUTSIDE LAB MCV 94 OTHER OUTSIDE LAB MCH 31 OTHER OUTSIDE LAB MCHC 33 OTHER OUTSIDE LAB Platelet Count 137 OTHER OUTSIDE LAB MPV 10.3 OTHER OUTSIDE LAB RDW 15.1 (H) 10.0 [...] City/State/Zipcode Phone Number OTHER OUTSIDE LAB * BASIC METABOLIC PANEL (08/17/2018) Sodium 139 OTHER OUTSIDE LAB Potassium 4.2 OTHER OUTSIDE LAB Chloride 99 OTHER OUTSIDE LAB CO2 28 OTHER OUTSIDE LAB Blood Urea 39 (H) 7 - 18 OTHER OUTSIDE Nitrogen LAB Creatinine 3.70 (H) 0.60 - 1.30 OTHER OUTSIDE LAB Glucose 155 (H) 70 - 105 OTHER OUTSIDE LAB Calcium 9.3 OTHER OUTSIDE LAB eGFR Non 12 OTHER OUTSIDE LAB South African eGFR 12 OTHER OUTSIDE South African LAB Anion Gap OTHER OUTSIDE LAB BUN/Creatinine 11 OTHER OUTSIDE Ratio LAB Specimen Blood - Blood Performing Organization Address City/State/Zipcode Phone Number OTHER OUTSIDE LAB documented in this encounter Visit Diagnoses Not on filedocumented in this encounter
--- OUTSIDE RECORDS SUMMARY | 2018-11-02 16:24 | XMS REPORT | Encounter Summary ---
Author Author [facility] Organization [facility] Address Unknown Phone Unavailable Care Team Providers Care Precast Concrete Ironworker Name Role Phone Carla Wilson MD PCP Naima Field MD Unavailable Winnie Jorge MD Unavailable Reason for Referral * Consult, Test & Treat (Routine) Referred By Contact Referred To Contact Status Reason Specialty Diagnoses / Procedures Felisa Sneed MD [address] [place] [address] New Request Procedures REQUEST FOR CARDIOLOGY APPOINTMENT * (Routine) Referred By Contact Referred To Contact Status Reason Specialty Diagnoses / Procedures Felisa Sneed MD [address] [place] [address] New Request Procedures REQUEST FOR CARDIOLOGY APPOINTMENT Reason for Visit * Reason Comments CHF follow up * (Routine) Referred By Contact Referred To Contact Status Reason Specialty Diagnoses / Procedures Felisa Sneed MD [address] [place] [address] New Request Procedures REQUEST FOR CARDIOLOGY APPOINTMENT Encounter Details Care Team Description Date Type Department Felisa Sneed MD [address] [place] [address] CHF (follow up) 08/24/2018 Office Visit [facility] [address] [place] [address] Social History Date Tobacco Use Types Packs/Day [...] Vital Signs Time Taken Vital Sign Reading 08/24/2018 2:43 PM CDT Blood Pressure 134/70 08/24/2018 2:43 PM CDT Pulse 74 - Temperature - - Respiratory Rate - 08/24/2018 2:43 PM CDT Oxygen Saturation 97% - Inhaled Oxygen - Concentration 08/24/2018 2:43 PM CDT Weight 90.6 kg (199 lb 11.2 oz) 08/24/2018 2:43 PM CDT Height 162.6 cm (5' 4") 08/24/2018 2:43 PM CDT Body Mass Index 34.28 documented in this encounter Functional Status Date [...] - sometimes documented as of this encounter Patient Instructions * Patient Instructions* Felisa Sneed MD - 08/24/2018 2:30 PM CDT STOP MEDICATIONS: Bumex, Spironolactone Please make sure you are hydrated. Get labs drawn in one week. We will follow up with you in a month. We can schedule that today. Labs today including CMP, Magnesium, BNP documented in this encounter Plan of Treatment Order Schedule Name Priority Associated Diagnoses Expected: 08/31/2018 (Approximate), Expires: 08/25/2019 COMPREHENSIVE METABOLIC PANEL Routine Chronic diastolic heart failure (HCC) Expected: 08/31/2018 (Approximate), Expires: 08/25/2019 BNP (B-TYPE NATRIURETIC PEPTI) Routine Heart disease Chronic diastolic heart failure (HCC) Expected: 08/31/2018 (Approximate), Expires: 08/25/2019 MAGNESIUM Routine Chronic diastolic heart failure (HCC) Expected: 08/31/2018 (Approximate), Expires: 08/25/2019 CBC Routine Chronic diastolic heart failure (HCC) documented as of this encounter Visit Diagnoses Diagnosis Chronic diastolic heart failure (HCC) - Primary Chronic diastolic heart failure Heart disease Heart disease, unspecified documented in this encounter
--- OUTSIDE RECORDS SUMMARY | 2018-11-02 16:24 | XMS REPORT | Encounter Summary ---
Author Author [facility] Organization [facility] Address Unknown Phone Unavailable Care Team Providers Care Taper Operator Name Role Phone Carla Wilson MD [...] hepatic cirrhosis type (HCC) [K74.60] P rocedures ID COLONOSCOPY FLX DX W/COLLJ SPEC WHEN PFRMD ID EGD ABLATE TUMOR POLYP/LESION W/DILATION& WIRE COLONOSCOPY DIAGNOSTIC WITH SPECIMEN COLLECTION BY BRUSHING/ WASHING - FLEXIBLE ESOPHAGOGASTRODUOD ENOSCOPY WITH ABLATION TUMOR/ POLYP/ OTHER LESION - FLEXIBLE Encounter Details Care Team Description Date Type Department Lynette Diana MD [address] [facility] [place] [address] [phone] GAVE (gastric antral vascular ectasia) 09/07/2018 Hospital [facility] [address] [place] [address] Social History Date Tobacco Use [...] or concerns after your procedure please call [phone] U-N 8am-5:00 pm. After 5:00 pm, holidays or weekends call [phone] a nd ask for the GI Doctor regional cra. Colon/Lower EUS/Retrograde Enteroscopy Post Lower Endoscopy Instructions [...] or concerns after your procedure please call [phone] L-F 8am-5:00 pm. After 5:00 pm, holidays or weekends call [phone] a nd ask for the GI Doctor regional cra. documented in this encounter Medications at Time [...] 1 mg by 0 tablet mouth daily. utrxtyvz-dmjkmpkmq-L-doug Take 500 mg 0 anese 500-400-2-0.33 mg [...] Bleeding disorder (HCC) CAD (coronary artery disease), [place] coronary artery 02/16/2018 Chronic diastolic heart failure [...] tablet Take 1 mg by mouth daily. fqxkwxao-gcafjfgbe-W-manganese 500-400-2-0.33 mg cap Take 500 mg by [...] GRAFTS (Internal Mammary Artery and Endovascular Vein [place]) performed by Lance Pal MD at [facility] HX MAZE N/A 02/16/2018 MAZE PROCEDURE performed by Lance Pal MD at OR UPPER GASTROINTESTINAL ENDOSCOPY N/A 03/29/2018 ESOPHAGOGASTRODUODENOSCOPY performed [...] obtained Consults: Anesthesiology Antolin Erazo MD Pager [phone] Associated attestation - Lynette Diana MD - [...] PATHOLOGY (09/07/2018 9:54 AM CDT) PATHOLOGY [facility] [email or web address] Department of Pathology and Laboratory Medicine [address] [place] [address] Surgical Pathology Office:[phone] :[phone] SURGICAL PATHOLOGY REPORT NAME: DEBORAH FIELDS SURG PATH #: [id number] MR #: [id number] SPECIMEN CLASS: SR BILLING #: [id number] ALT ID #:LOCATION: GIEND DATE OF PROCEDURE: 09/07/2018 AGE:63 SEX: F [...] is entirely submitted in cassette B1. (lmt) 09/07/2018 Performing Organization Address [facility] Phone Number [facility] [address] [place] [address] * COLONOSCOPY (09/07/2018 8:12 AM CDT) Provation Patient Name: Donnie CASTILLO OTHER Report Procedure Date: 09/07/2018 8:12 RESULTS AM CSN: [id number] Date of : 1955 Gender: Female Attending Physician: Lyentte Diana MD Procedure: Colonoscop y Indications: Suspected adenomatous polyps in the colon-incomplete colonoscopy 03/2018 Providers: Lynette Diana MD (Doctor), Antolin Erazo (Fellow), Mariana Suarez RN (Nurse), Chapincito Hameed (Embedded Systems Engineer) Referring Physician: Naima Field Medications: Propofol per [...] 27 seconds Procedure Code(s): --- Professional --- 95014, GC, Colonoscopy, flexible; with removal of tumor(s), polyp(s), or other lesion(s) by snare technique 04580, 59, Colonoscopy, flexible; with biopsy, single or multiple Diagnosis Code(s): --- Professional --- D12.2, Benign neoplasm of ascending colon D12.4, Benign neoplasm of descending colon D12.5, Benign neoplasm of sigmoid colon K62.5, Hemorrhage of anus and rectum CPT copyright 2017 [employer]. All rights reserved. The codes documented in this report are preliminary and upon criminal judge review may be revised to meet current [...] Procedure Date: 09/07/2018 8:01 RESULTS AM CSN: [id number] Date of : 1955 Gender: Female Attending Physician: Lynette Diana MD Procedure: Upper GI endoscopy Indications: Hx of chronic blood loss 2/2 PHG, GAVE. Requested re look. Providers: Lynette Diana MD (Doctor), Antolin Erazo (Fellow), Mariana Suarez RN (Nurse), Chapincito Hameed (Embedded Systems Engineer) Referring Physician: Naima Field Medications: Propofol per [...] Z-line was irregular. Difficult to appreciate possible Lnog's wtih EV. Small (< 5 mm) varices [...] 29 seconds Procedure Code(s): --- Professional --- 16031, GC, Esophagogastroduodenoscopy, flexible, transoral; diagnostic, including collection of specimen(s) by brushing or washing, when performed (separate procedure) Diagnosis Code(s): --- Professional --- K22.8, Other specified diseases of esophagus I85.00, Esophageal varices without bleeding K76.6, Portal hypertension K31.89, Other diseases of stomach and duodenum K31.819, Angiodysplasia of stomach and duodenum without bleeding CPT copyright 2017 [employer]. All rights reserved. The codes documented in this report are preliminary and upon criminal judge review may be revised to meet current [...] Address City/State/Zipcode Phone Number [facility] [address] [place] [address] * TELEMETRY STRIPS-SCAN (09/07/2018 12:00 AM CDT) [...] Intravenous, at 20 Bag mL/hr, CONTINUOUS, Starting e 09/07/18 at 0800, Until Thu09/07/18 at 1246 documented in this encounter
--- OUTSIDE RECORDS SUMMARY | 2018-11-02 16:24 | XMS REPORT | Encounter Summary ---
Author Author [facility] Organization [facility] Address Unknown Phone Unavailable Care Team Providers Care Electrician Underground Name Role Phone Carla Wilson MD PCP Naima Field MD Unavailable Winnie Jorge MD Unavailable Reason for Visit * Reason Comments Other call to ID Encounter Details Care Team Description Date Type Department Lynette Diana MD [address] [facility] [place] [address] Other (call to ID) 09/02/2018 Telephone [facility] [address] [address] Social History Date Tobacco Use [...] Telephone Encounter - Glo Us RN - 09/03/2018 9:19 AM CDT Returned call- LV. * Telephone Encounter - Sofía Rhoades - 09/02/2018 3:26 PM CDT Please return a call to Deborah regarding her upcoming procedures for 09/07/18. Colt lambert has questions regarding the ablation. documented in this encounter Plan of Treatment Not on filedocumented as of this encounter Visit Diagnoses Not on filedocumented in this encounter
--- OUTSIDE RECORDS SUMMARY | 2018-11-02 16:24 | XMS REPORT ---
Author Author JAMES TORRES [facility] Address [address] [place] [address] Care Team Providers Care Founding Partner Name Role Phone JAMES TORRES Unavailable PROBLEMS Type Condition ICD9-CM Code ZVN05-CM Code Onset Dates Condition Status SNOMED Code Problem 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 Active 544658872 Problem S/P CABG x 4 Z95.1 Active 871273660 Problem Non-insulin dependent type 2 diabetes mellitus E11.9 Active 38435831 Problem Long's esophagus determined by endoscopy K22.70 Active 627408845 Problem Essential hypertension I10 Active 41625400 Problem Coronary artery disease involving iqugmiut coronary artery of iqugmiut heart without angina pectoris I25.10 Active 7578091665914 Problem Persistent atrial fibrillation I48.1 Active 422268631 Problem Acquired hypothyroidism E03.9 Active 878677832 Problem Psoriasis L40.9 Active 1510377 Problem Reflux gastritis K29.60 Active 16115317 Problem Mixed hyperlipidemia E78.2 Active 841391257 Problem Type 2 diabetes mellitus with other specified complication E11.69 Active 48207149 Problem Microcytic anemia D50.9 Active 901839950 Problem Oxygen dependent Z99.81 Active 622758399533 Problem Angina pectoris syndrome I20.9 Active 689231846 Problem Type 2 diabetes mellitus with other circulatory complications E11.59 Active 30116783 Problem 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 Active 167083270 Problem Congestive heart failure, unspecified HF chronicity, unspecified heart failure type I50.9 Active 25218218 Problem [facility] 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 Z79.4 Active 686804176 Problem Typical atrial flutter I48.3 Active 014807003 ALLERGIES No Information ENCOUNTERS Encounter Location Date Diagnosis [facility] [address] [facility] [id number] [address] Aug, [facility] [id number] [address] Aug, [facility] [address] [place] [address] Jul, Acquired hypothyroidism E03.9 [facility] [id number] [place] [address] Jul, [facility] [id number] [place] [address] Jul, [facility] [id number] [place] [address] Jul, [facility] [id number] [place] [address] Jul, S/P CABG x 4 Z95.1 [place] [id number] [place] [address] Jun, 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 ; Oxygen dependent Z99.81 ; Shortness of breath R06.02 ; Hypoxia R09.02 ; Coronary artery disease involving iqugmiut coronary artery of iqugmiut heart without angina pectoris I25.10 ; Hepatic cirrhosis, unspecified hepatic cirrhosis type, unspecified whether ascites present K74.60 and Pleural effusion J90 [place] [id number] [place] [address] Jun, Congestive heart failure, unspecified HF chronicity, unspecified heart failure type I50.9 ; Type 2 diabetes mellitus with other circulatory complications E11.59 and S/P CABG x 4 Z95.1 [facility] [address] [place] [address] Jun, [facility] [id number] [place] [address] Jun, [facility] [id number] [place] [address] May, [facility] [id number] [place] [address] Apr, Non-intractable cyclical vomiting with nausea G43.A0 [place] [address] [address] Apr, Coronary artery disease involving iqugmiut coronary artery of iqugmiut heart without angina pectoris I25.10 ; Non-intractable cyclical vomiting with nausea G43.A0 ; Encounter for immunization Z23 ; Microcytic anemia D50.9 ; S/P CABG x 4 Z95.1 and BMI 40.0-44.9, adult Z68.41 [place] [address] [address] Apr, [place] [address] [address] Apr, [place] [address] [address] Apr, Essential hypertension I10 ; S/P CABG (coronary artery bypass graft) Z95.1 ; Non-insulin dependent type 2 diabetes mellitus E11.9 ; Coronary artery disease involving iqugmiut coronary artery of iqugmiut heart without angina pectoris I25.10 ; 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 ; Persistent atrial fibrillation I48.1 and BMI 40.0-44.9, adult Z68.41 [place] [address] [address] Mar, [place] [address] [address] Mar, [facility] [address] [address] Mar, Pain in left leg M79.605 and BMI 40.0-44.9, adult Z68.41 [place] [address] [address] Feb, S/P CABG x 4 Z95.1 ; 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 ; Typical atrial flutter I48.3 ; Candidiasis of mouth B37.0 ; Vaginal candidiasis B37.3 ; Type 2 diabetes mellitus with other specified complication E11.69 and [facility] 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 Z79.4 [place] [id number] [place] [address] Jan, [place] [id number] [place] [address] Jan, [place] [id number] [place] [address] Jan, [place] [address] [address] Jan, Non-insulin treated type 2 diabetes mellitus E11.9 ; Essential hypertension I10 ; Microcytic anemia D50.9 ; Persistent atrial fibrillation I48.1 and BMI 40.0-44.9, adult Z68.41 [place] [address] [place] [address] Jan, [place] [id number] [place] [address] Dec, [place] [address] [place] [address] Dec, Acquired hypothyroidism E03.9 [place] [address] [place] [address] Dec, [place] [id number] [place] [address] Dec, [facility] [address] [place] [address] Nov, Lower abdominal pain R10.30 and BMI 45.0-49.9, adult Z68.42 [place] [id number] [place] [address] Nov, BMI 45.0-49.9, adult Z68.42 [facility] [id number] [place] [address] October, Congestive heart failure, unspecified HF chronicity, unspecified heart failure type I50.9 ; Acquired hypothyroidism E03.9 and BMI 45.0-49.9, adult Z68.42 [place] [id number] [place] [address] October, Shortness of breath R06.02 [place] [id number] [place] [address] October, [place] [address] [address] October, [place] [id number] [place] [address] October, Essential hypertension I10 ; Coronary artery disease involving iqugmiut coronary artery of iqugmiut heart without angina pectoris I25.10 ; Angina pectoris syndrome I20.9 ; 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 and Persistent atrial fibrillation I48.1 [place] [id number] [place] [address] Sep, Coronary artery disease involving i[place]gmiut coronary artery of iqugmiut heart without angina pectoris I25.10 [place] [address] [place] [address] Sep, [place] [address] [place] [address] Sep, Angina pectoris syndrome I20.9 ; Paroxysmal atrial fibrillation I48.0 ; Microcytic anemia D50.9 ; 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 and 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 [place] [id number] [place] [address] Aug, Non-insulin dependent type 2 diabetes mellitus E11.9 ; Microcytic anemia D50.9 ; Essential hypertension I10 and Acquired hypothyroidism E03.9 [place] [address] [place] [address] Jul, [place] [address] [place] [address] Jul, [place] [address] [place] [phone] Jun, [place] [address] [address] May, [place] [id number] [place] [address] May, History of anemia Z86.2 [place] [address] [address] May, [place] [address] [address] May, [place] [address] [address] May, Non-insulin treated type 2 diabetes mellitus E11.9 [place] [address] [address] Apr, Abdominal pain, left upper quadrant R10.12 ; Essential hypertension I10 ; Non-intractable cyclical vomiting with nausea G43.A0 ; Microcytic anemia D50.9 ; Mixed hyperlipidemia E78.2 and BMI 45.0-49.9, adult Z68.42 [place] [address] [place] [address] Apr, [place] [address] [place] [address] Apr, Non-insulin treated type 2 diabetes mellitus E11.9 ; Essential hypertension I10 and Acquired hypothyroidism E03.9 [place] [address] [place] [address] Mar, Encounter for immunization Z23 [place] [address] [address] Mar, [place] [address] [place] [address] Feb, Microcytic anemia D50.9 ; Pain of left great toe M79.675 and Reflux gastritis K29.60 [facility] [id number] [place] [address] Feb, Coronary artery disease involving iqugmiut coronary artery of iqugmiut heart without angina pectoris I25.10 and Acquired hypothyroidism E03.9 [facility] [id number] [place] [address] Jan, Psoriasis L40.9 ; Paroxysmal atrial fibrillation I48.0 ; Shortness of breath R06.02 and Microcytic anemia D50.9 [place] [address] [place] [address] Dec, [place] [address] [address] Dec, [place] [address] [place] [address] Dec, Coronary artery disease involving iqugmiut coronary artery of iqugmiut heart without angina pectoris I25.10 [place] [address] [place] [address] Nov, Therapeutic drug monitoring Z51.81 ; Essential hypertension I10 ; Microcytic anemia D50.9 and Shortness of breath R06.02 [place] [address] [place] [address] Nov, Acquired hypothyroidism E03.9 [place] [address] [place] [address] October, [place] [address] [place] [address] Sep, Coronary artery disease involving iqugmiut coronary artery of iqugmiut heart without angina pectoris I25.10 [place] [address] [place] [address] Aug, [place] [address] [place] [address] Aug, Essential hypertension I10 [place] [address] [address] 20 Jul, 2016 Acquired hypothyroidism E03.9 ; Essential hypertension I10 ; Non- insulin treated type 2 diabetes mellitus E11.9 and Coronary artery disease involving iqugmiut coronary artery of iqugmiut heart without angina pectoris I25.10 [facility] [address] [address] 15 Jul, 2016 [facility] [id number] [place] [address] Jul, Angina pectoris syndrome I20.9 and Essential hypertension I10 [place] [address] [place] [address] 03 Jul, 2016 [facility] [id number] [place] [address] 09 Jun, 2016 [facility] [id number] [place] [address] 09 May, 2016 Abscess L02.91 [facility] [id number] [place] [address] 22 Apr, 2016 Non-insulin dependent type 2 diabetes mellitus E11.9 ; Essential hypertension I10 ; Acquired hypothyroidism E03.9 ; History of anemia Z86.2 and Coronary artery disease involving iqugmiut coronary artery of iqugmiut heart without angina pectoris I25.10 [place] [address] [place] [address] 14 Apr, 2016 IMMUNIZATIONS No Known Immunizations SOCIAL HISTORY Never Assessed REASON FOR VISIT Labs PLAN OF CARE Activity Details Pending Test TSH w/ FREE T4 VITAL SIGNS MEDICATIONS Unknown Medications RESULTS No Results PROCEDURES Procedure Date Ordered Result Body Site ASSAY OF FREE THYROXINE Aug 12, 2018 ASSAY THYROID STIM HORMONE Aug 12, 2018 INSTRUCTIONS MEDICATIONS ADMINISTERED No Known Medications MEDICAL [...] RCA. Suture Ligation of Left Atrial Appendage 2017 Hospitalization History afbrillation 2009 Hospitalization History surgeries listed above Hospitalization History child Hospitalization History Atrial Fibrillation January 2017 Hospitalization History [place] 09/30 Hospitalization History [facility] for lasix and blood products 08/09/17 Hospitalization History Blood/blood products 11/2017
[2018-11-02] MEDS ORDERED: ACETAMINOPHEN 500 MG TAB (TYLENOL) PO ONE (16:30)
[2018-11-02] MEDS ORDERED: PIPERACILLIN/TAZOBACTAM (BULK) 4.5 GM in NS (IVPB) 100 ML IV ONE (16:30)
[2018-11-02] MEDS ORDERED: NS IV 1000 ML 1,500 ML IV ONE (16:30)
[2018-11-02] MEDS ORDERED: FAMOTIDINE 20 MG (PEPCID) TABLET PO STA (16:38)
--- NOTE | 2018-11-02 16:38 | ED Fever ---
History of Present Illness General Chief Complaint: Fever-Adult/Adol Stated Complaint: FEVER Source: patient, caregiver (cancer center nurse and labs from earlier today), spouse Exam Limitations: no limitations (HUSSAIN MOULTON) History of Present Illness Date Seen by Provider: November 02, 2018 Time Seen by Provider: 16:19 Initial Comments The patient presents to ER by wheelchair from the [facility] with chief complaint that she's been having malaise bodyaches fatigue for the past for 5 days progressively getting worse. She had a fever today in the cancer Center 1 01.4 mg 101 and labs were drawn starting white count and hemoglobin of 8.3 and creatinine 3.1. She believes her creatinine usually runs around 2. She has not really had a cough diarrhea vomiting nausea earaches or headache but she does have some achy pain in her neck and back. She was having confusion yesterday intermittently. She says she urinated in the kitchen as well as she was using a whole toilet paper to wipe and clogged up the toilet. She is accompanied by her . 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 Grace, hematology. She's had over 50 units of blood transfused since diagnosis. She was in [place] and they wanted to admit her to do more ablations but she declined because of the weekend. Thursday she said her hemoglobin was 9.2. History of CABG. She is having some diffuse abdominal pain especially in the epigastric region. No history of pancreatitis. She does have GERD and takes Prilosec twice a day. She has not taken any antipyretics or antacids today. (HUSSAIN MOULTON) Allergies and Home Medications Allergies Coded Allergies: Pjsldjj-Zyr-Sut Reductase Inhibitor (Verified Allergy, Intermediate, GI UPSET, N/V, 11/06/17) cefadroxil (Unverified Allergy, Mild, 01/01/17) Sulfa (Sulfonamide Antibiotics) (Verified Allergy, Unknown, 06/18/18) Home Medications Acetaminophen 325 Mg Tablet, 325 MG PO Q4H PRN for PAIN-MILD, (Reported) Bumetanide 1 Mg Tablet, 1 MG PO DAILY, (Reported) Cefdinir 300 Mg Capsule, 300 MG PO BID Prescribed by: MICHELLE GARCIA on 11/06/18 1250 Cetirizine HCl 10 Mg Tablet, 10 MG PO DAILY, (Reported) Digoxin 125 Mcg Tablet, 125 MCG PO DAILY, (Reported) Diphenhydramine HCl 25 Mg Capsule, 25 MG PO Q6H PRN for ALLERGIES, (Reported) Folic Acid 1 Mg Tablet, 1 MG PO DAILY, (Reported) Insulin NPH Human Isophane 100 Unit/1 Ml Vial, 14 UNIT SQ DAILY, (Reported) Levothyroxine Sodium 175 Mcg Tablet, 175 MCG PO DAILY, (Reported) Magnesium Oxide 400 Mg Tablet, 400 MG PO BID, (Reported) Metoprolol Tartrate 25 Mg Tablet, 37.5 MG PO BID, (Reported) TAKES 1 & 1/2 (25MG) TABLET Nitroglycerin 0.4 Mg Tab.subl, 0.4 MG SL UD PRN for CHEST PAIN, (Reported) Omeprazole 40 Mg Capsule.dr, 40 MG PO BID, (Reported) Ondansetron HCl 8 Mg Tablet, 8 MG PO DAILY PRN for NAUSEA/VOMITING-1ST LINE, (Reported) Potassium Chloride 20 Meq Tablet.er, 20 MEQ PO BID, (Reported) Sennosides/Docusate Sodium 1 Each Tablet, 1 TAB PO HS PRN for CONSTIPATION-5TH LINE, (Reported) Tizanidine HCl 4 Mg Tablet, 4 MG PO TID PRN for MUSCLE SPASMS, (Reported) Tramadol HCl 50 Mg Tablet, 50 MG PO TID PRN for PAIN-MODERATE, (Reported) Patient Home Medication List Home Medication List Reviewed: Yes (HUSSAIN MOULTON) Review of Systems Review of Systems Constitutional: chills, fever, malaise, weakness EENTM: No ear discharge, No ear pain Respiratory: No cough, No phlegm, No short of breath Cardiovascular: No chest pain, No edema Gastrointestinal: see HPI, abdominal pain (diffuse but especially in the epigastric region); No constipation, No diarrhea Genitourinary: No discharge, No dysuria Musculoskeletal: back pain, muscle stiffness, neck pain Skin: No pruritus, No rash (HUSSAIN MOULTON) Past Zdvnxdz-Fujfko-Hlwuku Hx Patient Social History Alcohol Use: Denies Use Recreational Drug Use: No Smoking Status: Never a Smoker Type Used: Cigarettes Former Smoker, Quit: May 20, 1980 Recent Foreign Travel: No Contact w/Someone Who Travel: No Recent Hopitalizations: Yes Physical Abuse: No Sexual Abuse: No (HUSSAIN MOULTON) Immunizations Up To Date Tetanus Booster (TDap): Unknown PED Vaccines UTD: Yes Date of Pneumonia Vaccine: Jun 23, 2016 Date of Influenza Vaccine: May 18, 2018 (HUSSAIN MOULTON) Seasonal Allergies Seasonal Allergies: Yes (HUSSAIN MOULTON) Past Medical History Surgeries: Yes Adenoidectomy, Cardiac, CABG, Coronary Stent, Open Heart Surgery, Orthopedic, Tonsillectomy, Tubal Ligation Respiratory: Yes (LEFT PLEURAL EFFUSION) Sleep Apnea Currently Using CPAP: No Currently Using BIPAP: No Cardiac: Yes (CHF, STENT X1; CABG 02/16/2018 x 4 @ [facility]) Atrial Fibrillation, Chronic Edema/Swelling, Coronary Artery Disease, Heart Attack, High Cholesterol, Hypertension Neurological: Yes Reproductive Disorders: No Female Reproductive Disorders: Denies [employer] History: Menopausal Sexually Transmitted Disease: No HIV/AIDS: No Genitourinary: Yes Renal Failure Gastrointestinal: Yes (GAVE) Gastroesophageal Reflux, Gastrointestinal Bleed, Diverticulosis, Hemorrhoids, Polyps Musculoskeletal: Yes (POOR AMBULATION--USES WALKER SINCE CABG) Degenerate Disk Disease, Arthritis, Chronic Back Pain, Fractures Endocrine: Yes Diabetes, Insulin dep HEENT: No Loss of Vision: Denies Hearing Impairment: Denies Cancer: No Psychosocial: No Anxiety Integumentary: Yes Psoriasis Blood Disorders: Yes (acute anemia) Adverse Reaction/Blood Tranf: Yes (Antibody JKA) (HUSSAIN MOULTON) Family Medical History Arthritis G8 BROTHER Completed stroke 19 MOTHER FH: anemia 19 MOTHER FH: lupus G8 SISTER FH: throat cancer 19 FATHER Hypertension G8 SISTER Myocardial infarction 19 MOTHER Thyroid disease 19 MOTHER G8 SISTER Hypertension, Stroke, Other Conditions/Hx (HUSSAIN MOULTON) Physical Exam Vital Signs - First Documented 11/02/18 16:15 Temp 99.7 Pulse 101 Resp 18 B/P (MAP) 152/43 (79) Pulse Ox 99 O2 Delivery Nasal Cannula O2 Flow Rate 2.00 (JOSR VELA DO) Capillary Refill : (HUSSAIN MOULTON) Height: 5'4.00" Weight: 208lbs. 0.2oz. 94.756983ky; 45.0 BMI Method:Stated General Appearance: WD/WN, mild distress Eyes: Bilateral Eye Normal Inspection, Bilateral Eye PERRL, Bilateral Eye EOMI HEENT: PERRL/EOMI, normal ENT inspection, TMs normal, pharynx normal Neck: non-tender, full range of motion Respiratory: chest non-tender, lungs clear, normal breath sounds, no respiratory distress, no accessory muscle use Cardiovascular: normal peripheral pulses, regular rate, rhythm, no edema Gastrointestinal: normal bowel sounds, soft, tenderness (diffuse tenderness especially in her epigastric region) Extremities: non-tender, normal inspection, normal capillary refill Neurologic/Psychiatric: no motor/sensory deficits, alert, normal mood/affect, oriented x 3 Skin: normal color, warm/dry (HUSSAIN MOULTON) Focused Exam Lactate Level 11/02/18 16:20: Lactic Acid Level 1.78 (JOSR VELA DO) Lactic Acid Level Laboratory Tests Test 11/02/18 16:20 Lactic Acid Level 1.78 MMOL/L (0.50-2.00) (JOSR VELA DO) Procedures/Interventions Date of ETT Placement: May 30, 2018 Time of ETT Placement: 1330 (HUSSAIN MOULTON) Progress/Results/Core Measures Suspected Sepsis SIRS Temperature: Pulse: Respiratory Rate: Blood Pressure / Mean: 11/02/18 16:20: Lactic Acid Level 1.78 11/02/18 16:20: Lactic Acid Level 1.78 11/02/18 16:20: Lactic Acid Level 1.78 Laboratory Tests 11/02/18 17:24: INR Comment 1.2 11/02/18 20:08: Total Bilirubin 0.7 (HUSSAIN MOULTON) Results/Orders Lab Results Laboratory Tests Test 11/02/18 15:18 11/02/18 16:20 11/02/18 17:24 11/02/18 17:38 Range/Units Troponin I 0.036 H <0.028 NG/ML C-Reactive Protein High Sensitivity 6.08 H 0.00-0.50 MG/DL Monoscreen NEGATIVE NEGATIVE Lactic Acid Level 1.78 0.50-2.00 MMOL/L Prothrombin Time 15.8 H 12.2-14.7 SEC INR Comment 1.2 0.8-1.4 Activated Partial Thromboplast Time 33 24-35 SEC Urine Color YELLOW Urine Clarity SLIGHTLY CLOUDY Urine pH 5 5-9 Urine Specific [place] 1.015 L 1.016-1.022 Urine Protein 1+ H NEGATIVE Urine Glucose (UA) NEGATIVE NEGATIVE Urine Ketones NEGATIVE NEGATIVE Urine Nitrite NEGATIVE NEGATIVE Urine Bilirubin NEGATIVE NEGATIVE Urine Urobilinogen NORMAL NORMAL MG/DL Urine Leukocyte Esterase 3+ H NEGATIVE Urine RBC (Auto) 1+ H NEGATIVE Urine RBC 2-5 H /HPF Urine WBC TNTC H /HPF Urine Squamous Epithelial Cells 10-25 H /HPF Urine Crystals NONE /LPF Urine Bacteria LARGE H /HPF Urine Casts NONE /LPF Urine Mucus NEGATIVE /LPF Urine Culture Indicated CULTURE PENDING Test 11/02/18 20:08 Range/Units Magnesium Level 1.6 L 1.8-2.4 MG/DL Total Bilirubin 0.7 0.1-1.0 MG/DL Direct Bilirubin 0.4 H 0.0-0.3 MG/DL Indirect Bilirubin 0.3 MG/DL Aspartate Amino Transf (AST/SGOT) 31 5-34 U/L Alanine Aminotransferase (ALT/SGPT) 11 0-55 U/L Alkaline Phosphatase 41 40-136 U/L Troponin I 0.031 H <0.028 NG/ML Total Protein 6.2 L 6.4-8.2 GM/DL Albumin 3.0 L 3.2-4.5 GM/DL Amylase Level 43 25-125 U/L Lipase 33 8-78 U/L (JOSR VELA DO) Micro Results Microbiology 11/02/18 Blood Culture - Preliminary, Resulted No growth 11/02/18 Blood Culture - Preliminary, Resulted No growth 11/02/18 Influenza Types A,B Antigen (CODIE) - Final, Complete 11/02/18 Urine Culture - Final, Complete Mixed Bacterial Geovanna With Escherichia coli (JOSR VELA DO) My Orders Orders - JOSR VELA DO Troponin I (11/02/18 20:08) Ekg Tracing (11/02/18 20:08) Monitor-Rhythm Ecg Trace Only (11/02/18 20:08) Amylase (11/02/18 20:11) Lipase (11/02/18 20:11) Liver Panel (11/02/18 20:11) Troponin I (11/02/18 20:11) Magnesium (11/02/18 20:14) (JOSR VELA DO) Medications Given in ED (JOSR VELA DO) Vital Signs/I&O 11/02/18 11/02/18 11/02/18 11/02/18 16:15 16:15 19:00 19:30 Temp 99.7 Pulse 101 90 85 Resp 18 21 16 B/P (MAP) 152/43 (79) 114/47 (69) 111/45 (67) Pulse Ox 99 99 99 99 O2 Delivery Nasal Cannula Nasal Cannula Nasal Cannula O2 Flow Rate 2.00 2.00 2.00 11/02/18 11/02/18 20:00 20:30 Pulse 97 90 Resp 18 18 B/P (MAP) 133/50 (77) 128/52 (77) Pulse Ox 95 98 O2 Delivery Room Air Nasal Cannula O2 Flow Rate 2.00 (JOSR VELA DO) Vital Signs/I&O Capillary Refill : (HUSSAIN MOULTON) Progress Note #1: Time: 16:57 Progress Note The patient's confusion seems to be due to delirium probably a probable infection although the source is unclear at this time. We have obtained a flu. The CRP is only marginally elevated. We will scan her belly since she's having some discomfort there and give her a GI cocktail. She does not apparently have an acute kidney injury so a urinary tract infection is certainly possible. She's had a hard time producing a urine were giving her a 20 mL/kg bolus of fluids 1500 cc. She does not present with meningismus more like body aches. She is not confused at the moment. Her distant and short-term memory are intact. With a 6000 white count and no neurologic symptoms other than intermittent memory and confusion meningitis seems less likely. We will start with Zosyn. Blood cultures and urine. We gave her Tylenol or her fever and body aches and will reassess. Blood work was obtained 0ne hour prior to arrival from Dr. Garcia's office a little before 4:00 and at that time her white count was 5.9. Hemoglobin is fairly stable from Thursday only dropping a single point. Over the past 2 months her creatinine has ranged from 2.0-2.8. Progress Note #2: Time: 19:08 Progress Note The patient's nausea did not completely improve. We'll give her another 4 of Zofran and 25 Phenergan and 750 cc IV fluid. She is pending a CT scan of the abdomen with oral contrast only. Report has been given to Dr. Vela and she has assumed care of the patient at 1900. (HUSSAIN MOULTON) Progress Note : Progress Note 1899--ASSUMED CARE FROM DR. MOULTON, CT PENDING. 2009--PT NOW C/O CHEST PAIN --STATES SHE HAS BEEN HAVING IT FOR 2-3 DAYS. EKG AND LAB ORDERED. PT WAS GIVEN PHENERGAN FOR NAUSEA, PER DR. MOULTON'S ORDER, BEFORE PT WENT TO CT. ON RETURN FROM CT, PT IS NOW SLEEPING VERY SOUNDLY AND BRIEFLY WAKES THEN GOES IMMEDIATELY BACK TO SLEEP. PT HAD NO FURTHER COMPLAINTS FOR REMAINDER OF ER STAY (JOSR VELA DO) ECG Initial ECG Impression Date: November 02, 2018 Initial ECG Impression Time: 20:10 Initial ECG Rate: 82 (JOSR VELA DO) Diagnostic Imaging Diagonstic Imaging: Xray Plain Films/CT/US/NM/MRI: chest (1v) Comments [facility], [place] NAME: YOLETTE PISANO Jr [facility] REC#: [id number] PT STATUS: REG ER : 1955 PHYSICIAN: HUSSAIN MOULTON MD ADMIT DATE: 11/02/18/ER Draft Date of Exam:11/02/18 CHEST 1 VIEW, AP/PA ONLY CLINICAL INDICATION: Patient with fever, nausea, and vomiting. EXAM: Portable chest x-ray, upright view. COMPARISONS: Chest x-ray dated 09/27/2018. FINDINGS: Stable Buajhh-m-Ikrm overlying the right chest with tip in the proximal superior vena cava. Lungs/pleura: There is slightly improved aeration in the left lung base. There is mild left basilar atelectasis versus infiltrate present. There is blunting of the left costophrenic angle, and small left pleural effusion may be present which has decreased in size compared to the prior study. Suspected mild right basilar atelectasis. There is no pneumothorax. Mediastinum: Unremarkable. Pulmonary vasculature: Unremarkable. Heart: Heart size is within normal limits and stable. Stable postop changes to the chest with sternotomy wires, plates, and surgical clips in the mediastinal and left upper chest region. Bones/extrathoracic soft tissue: There are degenerative spurs involving the thoracic spine. IMPRESSION: 1: There is mild left basilar atelectasis versus infiltrate with suspected small left pleural effusion. Overall, left lung base findings have slightly improved compared to the prior study. 2: Suspected mild right basilar atelectasis. No radiographic evidence of acute cardiopulmonary process. Dictated on workstation # [id number] Dict: 11/02/18 1706 Trans: 11/02/18 1711 [id number] Interpreted by: CECY BAILEY MD Electronically signed by: Reviewed: Reviewed by Me Diagonstic Imaging: CT (oral contrast only) Plain Films/CT/US/NM/MRI: abdomen, pelvis Comments NAME: YOLETTE PISANO [facility] REC#: [id number] PHYSICIAN: HUSSAIN MOULTON MD CC: CECY BAILEY MD; HUSSAIN MOULTON Page 2 of 2 RADIOLOGY REPORT [facility] [place], [place] CC: CECY BAILEY MD; HUSSAIN MOULTON Page 1 of 2 RADIOLOGY REPORT NAME: NORRISYOLETTE [facility] REC#: [id number] PT STATUS: ADM IN : 1955 PHYSICIAN: HUSSAIN MOULTON MD ADMIT DATE: 11/02/18/ICU Signed Date of Exam: 11/02/18 CT ABDOMEN/PELVIS WO Clinical Indication: The patient complains of fever and confusion which started last p.m., upper abdominal pain. Exam: CT scan of the abdomen and pelvis performed without IV contrast. Gastrografin and water oral contrast was administered. Coronal and sagittal reformatted images were created. Comparison: CT scan of the chest, abdomen, and pelvis dated 05/30/2018. Findings: There is interval improved aeration of the left lung base with residual consolidation in the left lung base seen. This may represent atelectasis and or superimposed infiltrate. There is a minimal sized left pleural effusion which has decreased compared to the prior study. Right lung base is clear. There are degenerative changes involving both hips. There are spurs involving the visualized lower thoracic spine and lumbar spine. There is lower lumbar spine facet arthropathy. The liver, spleen, and pancreas are unremarkable. Gallbladder is fluid distended with no other significant abnormality. There is no CT evidence of cholecystitis. Adrenal glands are unremarkable. Both kidneys are unremarkable with no hydronephrosis, stone, or mass seen. There is no aneurysmal dilation of the abdominal aorta. Bladder is partially fluid-filled with no gross and abnormality. The uterus and adnexal regions are grossly unremarkable. There is no abdominal or pelvic significant lymphadenopathy. The visualized portion of the appendix is unremarkable. There is no evidence of intestinal obstruction or intestinal abnormality. There is no abdominal free air or free fluid. There is interval resolution of the previously seen abdominal ascites. Extraabdominal and extrapelvic soft tissue structures are unremarkable. The previously seen anasarca has resolved. Impression: 1: There is no CT evidence of acute abdominal or pelvic process. 2: There is consolidation in the left lung base which may represent atelectasis, but superimposed infiltrate cannot be completely excluded. There is minimal-sized left pleural effusion. The left lung base findings have improved compared to the prior study. There is resolution of the previously seen right lung base pleural effusion and consolidation. 3: There is interval resolution of previously seen abdominal ascites. Dictated by: Dictated on workstation # [id number] Dict: 11/02/182008 Trans: 11/02/182317 Interpreted by: CECY BAILEY MD Electronically signed by: CECY BAILEY MD 11/02/182 Reviewed: Reviewed by Me (HUSSAIN MOULTON) Plain Films/CT/US/NM/MRI: chest (1v) Comments CT --IMPROVED AERATION LEFT LUNG BASE, RESIDUAL CONSOLIDATION / ATELECTASIS AND MINIMAL EFFUSION, RESOLVED ASCITES, OVERALL IMPROVED, NO ACUTE PROCESS--PER RADIOLOGIST REPORT @ 2033 Reviewed: Reviewed by Me ( ) (JORS VELA DO) Transfer of Care Transfer of Care Time: 19:00 Care transferred to: Dr Vela (HUSSAIN MOULTON) Departure Communication (Admissions) Time/Spoke to Admitting Phy: 20:00 Dr Garcia accepting (HUSSAIN MOULTON) 2054--SPOKE WITH DR. GARCIA, HOSPITALIST. ACCEPTS PT FOR ADMIT TO ICU. WILL CONSULT AND DR. MCKEON 2057--SPOKE WITH DR. IBRAHIM, DIRECTOR [employer]. INFORMED OF CONSULT, ORDERS NOTED 2099--ATTEMPTING TO CONTACT DR. MCKEON. MESSAGE LEFT ON CELL PHONE (JOSR VELA DO) Impression Primary Impression: UTI (urinary tract infection) Qualified Codes: N30.00 - Acute cystitis without hematuria Additional Impressions: Sepsis Qualified Codes: A41.9 - Sepsis, unspecified organism Elevated troponin I level Acute kidney injury superimposed on chronic kidney disease Chest pain Chronic anemia Chronic gastritis Hypomagnesemia RESIDUAL LLL INFILTRATE Hx of CABG Type 2 diabetes mellitus with hyperglycemia Disposition: ADMITTED INPATIENT Condition: Stable Admissions Decision to Admit Reason: Admit from ER (General) Decision to Admit/Date: November 07, 2018 Time/Decision to Admit Time: 20:00 (HUSSAIN MOULTON) Decision to Admit/Date: November 02, 2018 Time/Decision to Admit Time: 20:55 (JOSR VELA DO) Departure-Patient Inst. Referrals: JAMES TORRES MD (PCP/Family) Primary Care Physician Scripts Cefdinir (Cefdinir) 300 Mg Capsule 300 MG PO BID, #10 CAP Prov: MICHELLE GARCIA DO 11/06/18 HUSSAIN MOULTON November 02, 2018 16:37 JOSR VELA DO November 02, 2018 19:43
[2018-11-02] MEDS ORDERED: ANTACID SUSP 30 ML UDC (MYLANTA) PO ONE (16:45)
[2018-11-02] MEDS ORDERED: LIDOCAINE 2% VISCOUS 15 ML UDC PO ONE (16:45)
--- NOTE | 2018-11-02 17:11 | Diagnostic Imaging Report ---
CLINICAL INDICATION: Patient with fever, nausea, and vomiting. EXAM: Portable chest x-ray, upright view. COMPARISONS: Chest x-ray dated 09/27/2018. FINDINGS: Stable Zfgkey-n-Xaaa overlying the right chest with tip in the proximal superior vena cava. Lungs/pleura: There is slightly improved aeration in the left lung base. There is mild left basilar atelectasis versus infiltrate present. There is blunting of the left costophrenic angle, and small left pleural effusion may be present which has decreased in size compared to the prior study. Suspected mild right basilar atelectasis. There is no pneumothorax. Mediastinum: Unremarkable. Pulmonary vasculature: Unremarkable. Heart: Heart size is within normal limits and stable. Stable postop changes to the chest with sternotomy wires, plates, and surgical clips in the mediastinal and left upper chest region. Bones/extrathoracic soft tissue: There are degenerative spurs involving the thoracic spine. IMPRESSION: 1: There is mild left basilar atelectasis versus infiltrate with suspected small left pleural effusion. Overall, left lung base findings have slightly improved compared to the prior study. 2: Suspected mild right basilar atelectasis. No radiographic evidence of acute cardiopulmonary process. Dictated by: Dictated on workstation # [id number]
[2018-11-02] MEDS ORDERED: DIATRIZOATE MEGLUM/SODIUM 37% 120 ML (GASTROGRAFIN) PO ONE (17:15)
[2018-11-02 17:43] LABS: BILIRUBIN,URINE NEGATIVE (NEGATIVE); CLARITY,URINE SLIGHTLY CLOUDY; COLOR,URINE YELLOW; GLUCOSE, URINE (UA) NEGATIVE (NEGATIVE); KETONES,URINE NEGATIVE (NEGATIVE); LEUKOCYTE ESTERASE ,URINE 3+ (NEGATIVE); NITRITE,URINE NEGATIVE (NEGATIVE); PH,URINE 5 (5-9); PROTEIN,URINE 1+ (NEGATIVE); UROBILINOGEN,URINE NORMAL (NORMAL)
[2018-11-02 17:43] LABS: INR 1.2 (0.8-1.4); PROTHROMBIN TIME PATIENT 15.8 SEC (12.2-14.7)
[2018-11-02 17:49] LABS: BACTERIA,URINE LARGE /HPF; WBC,URINE TNTC /HPF
[2018-11-02] MEDS ORDERED: ONDANSETRON 4 MG/2 ML (SDV) Z0FRAN IVP ONE (19:15)
[2018-11-02] MEDS ORDERED: PROMETHAZINE INJ 25 MG/ML (PHENERGAN) AMP IVP ONE (19:15)
--- NOTE | 2018-11-02 19:22 | NUR ---
pt given medications, denies other needs at this time. encouraged to drink as much po contrast as nausea allows.
--- NOTE | 2018-11-02 20:00 | NUR ---
pt reports chest pain x1 day. erp notified, new orders recieved.
--- NOTE | 2018-11-02 20:21 | Diagnostic Imaging Report ---
Clinical Indication: The patient complains of fever and confusion which started last p.m., upper abdominal pain. Exam: CT scan of the abdomen and pelvis performed without IV contrast. Gastrografin and water oral contrast was administered. Coronal and sagittal reformatted images were created. Comparison: CT scan of the chest, abdomen, and pelvis dated 05/30/2018. Findings: There is interval improved aeration of the left lung base with residual consolidation in the left lung base seen. This may represent atelectasis and or superimposed infiltrate. There is a minimal sized left pleural effusion which has decreased compared to the prior study. Right lung base is clear. There are degenerative changes involving both hips. There are spurs involving the visualized lower thoracic spine and lumbar spine. There is lower lumbar spine facet arthropathy. The liver, spleen, and pancreas are unremarkable. Gallbladder is fluid distended with no other significant abnormality. There is no CT evidence of cholecystitis. Adrenal glands are unremarkable. Both kidneys are unremarkable with no hydronephrosis, stone, or mass seen. There is no aneurysmal dilation of the abdominal aorta. Bladder is partially fluid-filled with no gross and abnormality. The uterus and adnexal regions are grossly unremarkable. There is no abdominal or pelvic significant lymphadenopathy. The visualized portion of the appendix is unremarkable. There is no evidence of intestinal obstruction or intestinal abnormality. There is no abdominal free air or free fluid. There is interval resolution of the previously seen abdominal ascites. Extraabdominal and extrapelvic soft tissue structures are unremarkable. The previously seen anasarca has resolved. Impression: 1: There is no CT evidence of acute abdominal or pelvic process. 2: There is consolidation in the left lung base which may represent atelectasis, but superimposed infiltrate cannot be completely excluded. There is minimal-sized left pleural effusion. The left lung base findings have improved compared to the prior study. There is resolution of the previously seen right lung base pleural effusion and consolidation. 3: There is interval resolution of previously seen abdominal ascites. Dictated by: Dictated on workstation # [id number]
[2018-11-02 20:41] LABS: BILIRUBIN,DIRECT 0.4 MG/DL (0.0-0.3); BILIRUBIN,INDIRECT 0.3 MG/DL; BILIRUBIN,TOTAL 0.7 MG/DL (0.1-1.0); TOTAL PROTEIN 6.2 GM/DL (6.4-8.2)
[2018-11-02] MEDS ORDERED: NS IV 1000 ML 1,000 ML IV ONE (21:00)
[2018-11-02] MEDS: MAGNESIUM 1 GM/100 ML IVPB 100 ML IV SCH ×2 (21:17→22:15)
--- OUTSIDE RECORDS SUMMARY | 2018-11-02 21:42 | XMS REPORT | Clinical Summary ---
Author Author [facility] Organization [facility] Address Unknown Phone Unavailable Care Team Providers Care Corporate Development Associate Name Role Phone Carla Wilson MD PCP Naima Field MD Unavailable Winnie Jorge MD Unavailable Emiliano Rodriguez APRN,INCLINOMETER TESTER-C 7 Source Comments Some departments are not documenting in the electronic medical record. If you d o not see the information that you expected, contact Release of Information in [facility] Information Management department at [phone] for further assistan ce in locating additional records.[facility] Allergies Comments Active Allergy Reactions Severity [...] directed daily as needed (For Hemorrhoids). 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 Respiratory Rate 18 10/29/2018 10:27 AM CDT [...] / Lot Implanted Type Area Manufactur er [id number] / [id number] / [id number] Plate Acutie Sternal Closure - N/A: Sternum ACT [id number] INNOVATION Implanted: Qty: 2 on 02/16/2018 by Lance Conte MD [id number] / [id number] / [id number] Plate Acutie Sternal Closure - N/A: Sternum ACT [id number] INNOVATION Implanted: Qty: 1 on 02/16/2018 by [...] City/State/Zipcode Phone Number [facility] [address] [place] [address] * BASIC METABOLIC PANEL (10/29/2018 12:23 PM [...] (L) >60 mL/min [facility] Comment: Salvadorean The eGFR is not validated for use in drug dosing adjustments.Continue to use estimated creatinine clearance per dosing reference text.Please contact the Clinical Pharmacist for questions. eGFR 22 (L) >60 mL/min [facility] Salvadorean Comment: The eGFR is not validated for use in drug dosing adjustments.Continue to use estimated creatinine clearance per dosing reference text.Please contact the Clinical Pharmacist for questions. Specimen Blood Performing Organization Address City/State/Zipcode Phone Number [facility] [address] [place] [address] * BNP (B-TYPE NATRIURETIC PEPTI) (10/25/2018) B Type 363.2 (H) <100.0 OTHER OUTSIDE Natriuretic LAB Peptide BNP NT pro OTHER OUTSIDE LAB Specimen Blood - Blood Performing Organization Address City/[facility]/Zipcode Phone Number OTHER OUTSIDE LAB * COMPREHENSIVE [...] LAB eGFR Non 17 OTHER OUTSIDE LAB Salvadorean eGFR OTHER OUTSIDE Salvadorean LAB Anion Gap 9 OTHER OUTSIDE LAB [...] PATHOLOGY (09/07/2018 9:54 AM CDT) PATHOLOGY [facility] [email or web address] Department of Pathology and Laboratory Medicine [address] [place] [address] Surgical Pathology Office:[phone] [phone] SURGICAL PATHOLOGY REPORT NAME: DEBORAH FIELDS SURG PATH #: [id number] MR #: [id number] SPECIMEN CLASS: SR BILLING #: [id number] ALT ID #:LOCATION: [facility] DATE OF PROCEDURE: 09/07/2018 AGE:63 SEX: F [...] cassette B1. (lmt) /09/07/2018 Performing Organization Address City/[facility] Phone Number MA[facility] LAB [address] [place] [address] * COLONOSCOPY (09/07/2018 8:12 AM CDT) Provation Patient Name: Donnie CASTILLO OTHER Report Procedure Date: 09/07/2018 8:12 RESULTS AM [facility]: [id number] Date of : 1955 Gender: Female Attending Physician: Lynette Diana MD Procedure: Colonoscop y Indications: Suspected adenomatous polyps in the colon-incomplete colonoscopy 03/2018 Providers: Lynette Diana MD (Doctor), Antolin Erazo (Fellow), Mariana Suarez RN (Nurse), Chapincito Hameed (Hogshead Wrecker) Referring Physician: Naima Field Medications: Propofol per [...] 27 seconds Procedure Code(s): --- Professional --- 99316, GC, Colonoscopy, flexible; with removal of tumor(s), polyp(s), or other lesion(s) by snare technique 75090, 59, Colonoscopy, flexible; with biopsy, single or multiple Diagnosis Code(s): --- Professional --- D12.2, Benign neoplasm of ascending colon D12.4, Benign neoplasm of descending colon D12.5, Benign neoplasm of sigmoid colon K62.5, Hemorrhage of anus and rectum CPT copyright 2017 [employer]. All rights reserved. 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 Requested re look. Providers: Lynette Diana MD (Doctor), Antolin Erazo (Fellow), Mariana Suarez RN (Nurse), [place] Hameed (Hogshead Wrecker) Referring Physician: Naima Field Medications: Propofol per [...] 29 seconds Procedure Code(s): --- Professional --- 99008, GC, Esophagogastroduodenoscopy, flexible, transoral; diagnostic, including collection of specimen(s) by brushing or washing, when performed (separate procedure) Diagnosis Code(s): --- Professional --- K22.8, Other specified diseases of esophagus I85.00, Esophageal varices without bleeding K76.6, Portal hypertension K31.89, Other diseases of stomach and duodenum K31.819, Angiodysplasia of stomach and duodenum without bleeding CPT copyright 2017 [employer]. All rights reserved. The codes documented in this report are preliminary and upon fermentation operator review may be revised to meet current [...] 100 MG/DL MAIN LAB Performing Organization Address City/[facility]/Zipcode Phone Number MAIN LAB [address] [place] [address] * TELEMETRY STRIPS-SCAN (09/07/2018 12:00 AM CDT) [...] file. For more i nformation, please contact: [facility] [address] [facility] [place] [address] Date Inactivated Comments Code Status Date Activated [...]
--- OUTSIDE RECORDS SUMMARY | 2018-11-02 21:43 | XMS REPORT | Encounter Summary ---
Author Author [facility] Organization [facility] Address Unknown Phone Unavailable Care Team Providers Care Monotyper Name Role Phone Carla Wilson MD PCP Naima Field MD Unavailable Winnie Jorge MD Unavailable Emiliano Rodriguez APRN,CUSTOMS COMPLIANCE ANALYST-C 7 Reason for Referral * Consult, Test & Treat (Routine) Referred By Contact Referred To Contact Status Reason Specialty Diagnoses / Procedures Felisa Sneed MD [address] [place] [address] Pending Review Procedures REQUEST FOR CARDIOLOGY APPOINTMENT * Consult, Test & Treat (Routine) Referred By Contact Referred To Contact Status Reason Specialty Diagnoses / Procedures Felisa Sneed MD [address] [place] [address] New Request Procedures REQUEST FOR CARDIOLOGY APPOINTMENT * Consult, Test & Treat (Routine) Referred By Contact Referred To Contact Status Reason Specialty Diagnoses / Procedures Felisa Sneed MD [address] [place] [address] New Request Procedures REQUEST FOR CARDIOLOGY APPOINTMENT Reason for Visit * Reason Comments CAD follow up * Consult, Test & Treat (Routine) Referred By Contact Referred To Contact Status Reason Specialty Diagnoses / Procedures Felisa Sneed MD [address] [place], [place] [id number] New Request Procedures REQUEST FOR CARDIOLOGY APPOINTMENT Encounter Details Care Team Description Date Type Department Felisa Sneed MD 4000 [facility] [place] [address] [phone] CAD (follow up) 10/08/2018 Office Visit [facility] [address] [place] [address] Social History Date Tobacco Use Types Packs/Day [...] actively bleeding again, has se en Dr. Diana. Please take an extra dose of Bumex [...] our office with any questions or concerns [phone] documented in this encounter Plan of Treatment [...]
--- OUTSIDE RECORDS SUMMARY | 2018-11-02 21:43 | XMS REPORT | Encounter Summary ---
Author Author [facility] Organization [facility] Address Unknown Phone Unavailable Care Team Providers Care Lead Ramp Service Man Name Role Phone Carla Wilson MD PCP Naima Field MD Unavailable Winnie Jorge MD Unavailable Emiliano Rodriguez APRN,HOTEL SALES MANAGER-C 7 Reason for Visit * Reason Comments Cardiac Eval PAF; CAD; HLD; CHRONIC DIASTOLIC HEART FAILURE. Weight Loss Encounter Details Care Team Description Date Type Department Emiliano Rodriguez APRN,HOTEL SALES MANAGER-C [address] [address] [phone] Cardiac Eval (PAF; CAD; HLD; CHRONIC DIASTOLIC HEART FAILURE.); Weight Loss 10/29/2018 Office Visit [facility] [address] [address] Social History Date Tobacco Use Types Packs/Day [...] Patient Instructions * Patient Instructions* Emiliano Rodriguez APRN,HOTEL SALES MANAGER-C - 10/29/2018 10:30 AM CDT Your fluid [...] daily. Thank you for coming to [facility] Cardiology Heart Fa ilure [facility]. Emiliano Rodriguez APRN Nurse Practitioner Tracie Stuart RN [phone] documented in this encounter Progress Notes * Emiliano Rodriguez APRN, FNP-C - 10/29/2018 10:30 AM CDT Date of Service: 10/29/2018 Deborah Fields is a 63 y.o. female. HPI Ms. Fields was seen today in heart failure clinic by Dr Sneed and myself for routine follow-up visit accompanied by her spouse. [facility] Sneed on 10/08/18. At [...] blood transfusions at her local facility in [place], [place]. She states so far for the [...] has her blood checked every Thursday in [place]; states i f her hemoglobin is less [...] until 02/17/19. She also follows with outside split leather mosser. She has had multiple colonoscopies and EGD [...] concerns or questions. Emiliano Rodriguez APRN Pager #[phone] Collaborating MD:JAYSHREE Current Medications (including today's revisions) [...] tablet Take 1 mg by mouth daily. ifeftchr-upzvszrxw-J-manganese 500-400-2-0.33 mg cap Take 500 mg by [...] BASIC METABOLIC PANEL (10/29/2018 12:23 PM CDT) [facility] Signature Sodium 136 (L) 137 - 147 [...] (L) >60 mL/min [facility] Comment: Polish The eGFR is not validated for use in drug dosing adjustments.Continue to use estimated creatinine clearance per dosing reference text.Please contact the Clinical Pharmacist for questions. eGFR 22 (L) >60 mL/min [facility] Polish Comment: The eGFR is not validated for use in drug dosing adjustments.Continue to use estimated creatinine clearance per dosing reference text.Please contact the Clinical Pharmacist for questions. Specimen Blood Performing Organization Address City/State/Zipcode Phone Number [facility] [address] [place] [address] * CBC AND DIFF (10/29/2018 12:23 PM [...] Address City/State/Zipcode Phone Number [facility] [address] [place] [address] documented in this encounter Visit Diagnoses Diagnosis HFpEF - Primary Chronic diastolic heart failure CKD Chronic kidney disease, Stage IV (severe) GIB with anemia Hemorrhage of gastrointestinal tract, unspecified documented in this encounter
--- OUTSIDE RECORDS SUMMARY | 2018-11-02 21:43 | XMS REPORT | Encounter Summary ---
Author Author [facility] Organization [facility] Address Unknown Phone Unavailable Care Team Providers Care Food Services Director Name Role Phone Carla Wilson MD PCP Naima Field MD Unavailable Winnie Jorge MD Unavailable Emiliano Rodriguez APRN,INSURANCE ACCOUNT REPRESENTATIVE-C 7 Reason for Referral * Consult, Test & Treat (Urgent) Referred By Contact Referred To Contact Status Reason Specialty Diagnoses / Procedures Emiliano Rodriguez APRN,INSURANCE ACCOUNT REPRESENTATIVE-C [address] [facility] [address] [place] [address] Mark Boston MD [address] Ortho/[facility] [address] [place] [address] No Auth Needed Specialty Services Gastroenterology Diagnoses Required Chronic gastrointestinal bleeding Encounter Details Care Team Description Date Type Department Clary Martins RN Chronic gastrointestinal bleeding (Primary Dx) 11/01/2018 Orders Only [facility] [address] [place] [address] Social History Date Tobacco Use Types Packs/Day [...]
--- OUTSIDE RECORDS SUMMARY | 2018-11-02 21:43 | XMS REPORT | Encounter Summary ---
Author Author [facility] Organization [facility] Address Unknown Phone Unavailable Care Team Providers Care Beef Grinder Name Role Phone Carla Wilson MD PCP Naima Field MD Unavailable Winnie Jorge MD Unavailable Emiliano Rodriguez APRN,JAVA SDET-C 7 Reason for Visit * Reason Comments Lab Results Encounter Details Care Team Description Date Type Department Clary Martins RN Lab Results 10/13/2018 Telephone The [facility] [id number] [place], [place] [id number] Social History Date Tobacco Use Types Packs/Day [...]
--- OUTSIDE RECORDS SUMMARY | 2018-11-02 21:43 | XMS REPORT | Encounter Summary ---
Author Author [facility] Organization [facility] Address Unknown Phone Unavailable Care Team Providers Care Team Psychologist Name Role Phone Carla Wilson MD PCP Naima Field MD Unavailable Winnie Jorge MD Unavailable Emiliano Rodriguez APRN,FILM CASTING OPERATOR-C 7 Reason for Visit * Reason Comments Labs Only Encounter Details Care Team Description Date Type Department Clary Martins, [place] Labs Only 10/13/2018 Documentation [facility] [id number] [place] [address] Social History Date Tobacco Use Types Packs/Day [...] LAB eGFR Non 18 OTHER OUTSIDE LAB Botswanan eGFR OTHER OUTSIDE Botswanan LAB Anion Gap 11 OTHER OUTSIDE LAB [...]
--- OUTSIDE RECORDS SUMMARY | 2018-11-02 21:43 | XMS REPORT | Encounter Summary ---
Author Author [facility] Organization [facility] Address Unknown Phone Unavailable Care Team Providers Care Mobile Lounge Driver Or Operator Name Role Phone Carla Wilson MD PCP Naima Field MD Unavailable Winnie Jorge MD Unavailable Emiliano Rodriguez APRN,DIRECTOR OF ENGINEERING-C 7 Reason for Visit * Reason Comments Other GI referral Encounter Details Care Team Description Date Type Department Clary Martins RN Other (GI referral) 11/01/2018 Telephone [facility] [address] [facility] [address] [place] [address] Social History Date Tobacco Use [...]
--- OUTSIDE RECORDS SUMMARY | 2018-11-02 21:43 | XMS REPORT | Encounter Summary ---
Author Author [facility] Organization [facility] Address Unknown Phone Unavailable Care Team Providers Care Resident Advisor Name Role Phone Carla Wilson MD PCP Naima Field MD Unavailable Winnie Jorge MD Unavailable Emiliano Rodriguez APRN,MACHINE GUN MECHANIC-C 7 Reason for Visit * Reason Comments Labs Only Encounter Details Care Team Description Date Type Department Rina Ruano MA Labs Only 10/27/2018 Documentation [facility] [address] [place] [address] Social History Date Tobacco Use [...] * BNP (B-TYPE NATRIURETIC PEPTI) (10/25/2018) Pathologist [facility] B Type 363.2 (H) <100.0 OTHER OUTSIDE Natriuretic LAB Peptide BNP NT pro OTHER OUTSIDE LAB Specimen Blood - Blood Performing Organization Address City/[facility]/Zipcode Phone Number OTHER OUTSIDE LAB * COMPREHENSIVE METABOLIC PANEL (10/25/2018) Pathologist [facility] Sodium 138 OTHER OUTSIDE LAB Potassium 4.5 [...] LAB eGFR Non 17 OTHER OUTSIDE LAB Estonian eGFR OTHER OUTSIDE Estonian LAB Anion Gap 9 OTHER OUTSIDE LAB Specimen Blood - Blood Performing Organization Address City/[facility] Phone Number OTHER OUTSIDE LAB * CBC AND DIFF (10/25/2018) Pathologist [facility] White Blood 5.4 OTHER OUTSIDE Cells LAB [...]
--- OUTSIDE RECORDS SUMMARY | 2018-11-02 21:43 | XMS REPORT | Encounter Summary ---
Author Author [facility] Organization [facility] Address Unknown Phone Unavailable Care Team Providers Care Space And Storage Clerk Name Role Phone Carla Wilson MD PCP Naima Field MD Unavailable Winnie Jorge MD Unavailable Emiliano Rodriguez APRN,CAMPAIGN DIRECTOR-C 7 Encounter Details Care Team Description Date Type Department Emiliano Rodriguez APRN,CAMPAIGN DIRECTOR-C [address] [address] [phone] Arrived 10/29/2018 Hospital [facility] [address] [address] Social History Date Tobacco Use Types Packs/Day [...] Address City/State/Zipcode Phone Number [facility] [address] [place] [address] * BASIC METABOLIC PANEL (10/29/2018 12:23 PM [...] (L) >60 mL/min [facility] Comment: Guatemalan The eGFR is not validated for use in drug dosing adjustments.Continue to use estimated creatinine clearance per dosing reference text.Please contact the Clinical Pharmacist for questions. eGFR 22 (L) >60 mL/min [facility] Guatemalan Comment: The eGFR is not validated for use in drug dosing adjustments.Continue to use estimated creatinine clearance per dosing reference text.Please contact the Clinical Pharmacist for questions. Specimen Blood Performing Organization Address City/State/Zipcode Phone Number MAIN LAB [address] [place] [address] documented in this encounter Visit Diagnoses Diagnosis Chronic diastolic heart failure (HCC) Chronic diastolic heart failure documented in this encounter
--- OUTSIDE RECORDS SUMMARY | 2018-11-02 21:44 | XMS REPORT | Encounter Summary ---
Author Author [facility] Organization [facility] Address Unknown Phone Unavailable Care Team Providers Care Brake Repairer Hydraulic Name Role Phone Carla Wilson MD PCP Naima Field MD Unavailable Winnie Jorge MD Unavailable Emiliano Rodriguez APRN,TIP PRINTER-C 7 Reason for Visit * Reason Comments Lab Results Encounter Details Care Team Description Date Type Department Clary Martins, powertrain engineer Results 10/01/2018 Documentation [facility] [address] [place] [address] Social History Date Tobacco Use Types Packs/Day [...] LAB eGFR Non 21 OTHER OUTSIDE LAB Scottish eGFR OTHER OUTSIDE Scottish LAB Anion Gap 10 OTHER OUTSIDE LAB Troponin-I 0.028 OTHER OUTSIDE LAB Digoxin 1.44 OTHER OUTSIDE LAB Specimen Blood - Blood Performing Organization Address City/[facility] Phone Number OTHER OUTSIDE LAB * CBC [...]
--- OUTSIDE RECORDS SUMMARY | 2018-11-02 21:44 | XMS REPORT | Encounter Summary ---
Author Author [facility] Organization [facility] Address Unknown Phone Unavailable Care Team Providers Care Purchasing Agent Name Role Phone Carla Wilson MD PCP Naima Field MD Unavailable Winnie Jorge MD Unavailable Reason for Visit * Reason Comments Lab Results [facility] 09/22/18 Encounter Details Care Team Description Date Type Department Clary Martins RN Lab Results ([facility] 09/22/18) 09/27/[address] [facility] [address] [place] [address] Social History Date Tobacco Use Types Packs/Day [...] LAB eGFR Non 16 OTHER OUTSIDE LAB [place] eGFR OTHER OUTSIDE [place] LAB Anion Gap 6 OTHER OUTSIDE LAB Specimen Blood - Blood Performing Organization Address City/State/Zipcode Phone Number OTHER OUTSIDE LAB documented in this encounter Visit Diagnoses Not on filedocumented in this encounter
--- OUTSIDE RECORDS SUMMARY | 2018-11-02 21:44 | XMS REPORT | Encounter Summary ---
Author Author [facility] Organization [facility] Address Unknown Phone Unavailable Care Team Providers Care Finance Business Partner Name Role Phone Carla Wilson MD PCP Naima Field MD Unavailable Winnie Jorge MD Unavailable Emiliano Rodriguez APRN,OPTICAL ENGINEER-C 7 Reason for Visit * Reason Comments Lab Request Encounter Details Care Team Description Date Type Department Oliverio Mcneil LPN Lab Request 10/04/2018 Telephone [facility] [id number] [place], [place] [id number] Social History Date Tobacco Use Types Packs/Day [...] 10:15 AM CDT Records request sent to [employer] for pts lab results. * Telephone Encounter - Oliverio Mcneil LPN - 10/04/2018 4:23 PM CDT Pt called reporting she had labs drawn today at [facility]. documented in this encounter Plan of Treatment Not on filedocumented as of this encounter Visit Diagnoses Not on filedocumented in this encounter
--- OUTSIDE RECORDS SUMMARY | 2018-11-02 21:44 | XMS REPORT | Encounter Summary ---
Author Author [facility] Organization [facility] Address Unknown Phone Unavailable Care Team Providers Care Director Of Group Counseling Program Name Role Phone Carla Wilson MD PCP Naima Field MD Unavailable Winnie Jorge MD Unavailable Reason for Visit * Reason Comments Other Encounter Details Care Team Description Date Type Department Lynette Diana MD [address] [address] Other 09/20/2018 Telephone [facility] [address] [address] Social History Date Tobacco Use [...]
--- OUTSIDE RECORDS SUMMARY | 2018-11-02 21:44 | XMS REPORT | Encounter Summary ---
Author Author [facility] Organization [facility] Address Unknown Phone Unavailable Care Team Providers Care Clinical Services Assistant Name Role Phone Carla Wilson MD PCP Naima Field MD Unavailable Winnie Jorge MD Unavailable Emiliano Rodriguez APRN,CUSTOMS AGENT-C 7 Reason for Visit * Reason Comments Labs Only Encounter Details Care Team Description Date Type Department Clary Martins RN Labs Only 10/07/2018 Documentation [facility] [address] [place] [address] Social History Date Tobacco Use Types Packs/Day [...] - 10/07/2018 2:08 PM CDT Emiliano Rodriguez, STORES LABORER,CUSTOMS AGENT-C Clary Martins, RN Her creat is stable; will let her f/u with Felisa tomorrow. Pt to f/u with Dr. Sneed on Sunday 10/08 documented in this encounter Plan of Treatment Not on filedocumented as of this encounter Visit Diagnoses Not on filedocumented in this encounter
--- OUTSIDE RECORDS SUMMARY | 2018-11-02 21:44 | XMS REPORT | Encounter Summary ---
Author Author [facility] Organization [facility] Address Unknown Phone Unavailable Care Team Providers Care Head Of Mathematics Name Role Phone Carla Wilson MD PCP Naima Field MD Unavailable Winnie Jorge MD Unavailable Encounter Details Care Team Description Date Type Department Emiliano Rodriguez APRN,BENEFITS COUNSELOR-C [address] [facility] [id number] [place], [place] [phone] Chronic diastolic heart failure (HCC) (Primary Dx) 09/29/2018 Orders Only [facility] [address] [facility] [id number] [place] [address] Social History Date Tobacco Use Types Packs/Day [...] [facility] eGFR [facility] Romanian Anion Gap 7 5 - 14 [facility] Specimen Blood - Blood Narrative Performed At Performing Organization Address City/State/Zipcode Phone Number MAIN LAB [address] [place] [address] documented in this encounter Visit Diagnoses Diagnosis Chronic diastolic heart failure (HCC) - Primary Chronic diastolic heart failure documented in this encounter
--- OUTSIDE RECORDS SUMMARY | 2018-11-02 21:44 | XMS REPORT | Encounter Summary ---
Author Author [facility] Organization [facility] Address Unknown Phone Unavailable Care Team Providers Care Produce Department Supervisor Name Role Phone Carla Wilson MD PCP Naima Field MD Unavailable Winnie Jorge MD Unavailable Emiliano Rodriguez APRN,SANDER WOODEN PENCILS-C 7 Encounter Details Care Team Description Date Type Department Janell Del Cid 10/07/2018 Documentation The [facility] [id number] [place] [address] Social History Date Tobacco Use Types Packs/Day [...] [facility] eGFR [facility] Australian Anion Gap 7 5 - 14 [facility] MA[facility] Specimen Blood - Blood Narrative Performed At Performing Organization Address City/State/Zipcode Phone Number MAIN LAB [address] [place] [address] documented in this encounter Visit Diagnoses Diagnosis Chronic diastolic heart failure (HCC) Chronic diastolic heart failure documented in this encounter
--- OUTSIDE RECORDS SUMMARY | 2018-11-02 21:44 | XMS REPORT | Encounter Summary ---
Author Author [facility] Organization [facility] Address Unknown Phone Unavailable Care Team Providers Care Clinic Supervisor Name Role Phone Carla Wilson MD PCP Naima Field MD Unavailable Winnie Jorge MD Unavailable Reason for Visit * Reason Comments Follow-up Phone Call Encounter Details Care Team Description Date Type Department Lynette Diana MD 4000 [facility] [place] [address] Follow-up Phone Call 09/17/2018 Telephone The [facility] [address] [address] Social History Date Tobacco Use [...]
--- OUTSIDE RECORDS SUMMARY | 2018-11-02 21:44 | XMS REPORT | Encounter Summary ---
Author Author [facility] Organization [facility] Address Unknown Phone Unavailable Care Team Providers Care Harness Worker Name Role Phone Carla Wilson MD PCP Naima Field MD Unavailable Winnie Jorge MD Unavailable Reason for Visit * Reason Comments Weight Gain Encounter Details Care Team Description Date Type Department Estrella Chauhan LPN Weight Gain 09/23/2018 Telephone The [facility] [address]90 [place] [address] Social History Date Tobacco Use Types Packs/Day [...] the phone was 207.2 lbs. Called via [facility] in [facility] and requested records and lab results [...]
--- OUTSIDE RECORDS SUMMARY | 2018-11-02 21:44 | XMS REPORT | Encounter Summary ---
Author Author [facility] Organization [facility] Address Unknown Phone Unavailable Care Team Providers Care Gym Attendant Name Role Phone Carla Wilson MD PCP Naima Field MD Unavailable Winnie Jorge MD Unavailable Emiliano Rodriguez APRN,DATA CLERK-C 7 Reason for Visit * Reason Comments Lab Request Encounter Details Care Team Description Date Type Department Clary Martins RN Lab Request 10/07/2018 Telephone The [facility] [address] [id number] [place], [place] [id number] Social History Date Tobacco Use Types Packs/Day [...] Telephone Encounter - Clary Martins RN - 10/07/2018 11:38 AM CDT labs requested from [facility]. documented in this encounter Plan of Treatment Not on filedocumented as of this encounter Visit Diagnoses Not on filedocumented in this encounter
--- OUTSIDE RECORDS SUMMARY | 2018-11-02 21:44 | XMS REPORT | Encounter Summary ---
Author Author [facility] Organization [facility] Address Unknown Phone Unavailable Care Team Providers Care Shuttle Inspector Name Role Phone Carla Wilson MD PCP Naima Field MD Unavailable Winnie Jorge MD Unavailable Emiliano Rodriguez APRN,CONCRETE JOURNEYMAN-C 7 Reason for Visit * Reason Comments Follow Up Medications Only Heart Failure Shortness of Breath Leg Swelling Encounter Details Care Team Description Date Type Department Emiliano Rodriguez APRN,CONCRETE JOURNEYMAN-C 4000 [facility] YTD[address] [place] [address] [phone] Follow Up; Medications Only; Heart Failure; Shortness of Breath; Leg Swelling 09/30/2018 Office Visit [facility] 4000 [facility] YF2719 [place] [address] Social History Date Tobacco Use Types Packs/Day [...] on Thursday at the cancer center in [place], [place]. 3. Next follow up appointment already [...] daily. Thank you for coming to [facility]. Emiliano Michael SINGH Nurse Practitioner Tracie Stuart RN [phone] Heart Failure Education Summary You have been [...] does not resolve with rest or nitroglycerin [place], foamy mucus with cough and shortness of [...] concerns or questions. Emiliano Rodriguez APRN Pager #[phone] Collaborating MD:JAYSHREE Current Medications (including today's revisions) [...] tablet Take 1 mg by mouth daily. auqzokbz-jgxwfcqfl-X-manganese 500-400-2-0.33 mg cap Take 500 mg by [...]
[2018-11-02] MEDS ORDERED: PROMETHAZINE INJ 25 MG/ML (PHENERGAN) AMP IVP PRN (21:45)
[2018-11-02] MEDS: D5 1/2 NS 1000 ML IV SOLUTION 1,000 ML IV SCH (21:45)
[2018-11-02] MEDS ORDERED: fentaNYL INJECTION 100 MCG/2 ML AMP IV PRN (21:45)
--- OUTSIDE RECORDS SUMMARY | 2018-11-02 21:45 | XMS REPORT | Encounter Summary ---
Author Author [facility] Organization [facility] Address Unknown Phone Unavailable Care Team Providers Care Tea Bag Packer Name Role Phone Carla Wilson MD PCP Naima Field MD Unavailable Winnie Jorge MD Unavailable Reason for Visit * Reason Comments Labs Only Encounter Details Care Team Description Date Type Department Pat Combs RN Labs Only 09/17/2018 Documentation The [facility] [address] [id number] [place] [address] Social History Date Tobacco Use Types Packs/Day [...] [facility] MAIN LAB eGFR [facility] MAIN [facility] [place] Anion Gap 8 [facility] MAIN LAB Specimen [...] Address City/State/Zipcode Phone Number MAIN LAB [address] [place] [address] documented in this encounter Visit Diagnoses Diagnosis Chronic diastolic heart failure (HCC) Chronic diastolic heart failure documented in this encounter
--- OUTSIDE RECORDS SUMMARY | 2018-11-02 21:45 | XMS REPORT | Encounter Summary ---
Author Author [facility] Organization [facility] Address Unknown Phone Unavailable Care Team Providers Care Network Cable Installer Name Role Phone Carla Wilson MD PCP Naima Field MD Unavailable Winnie Jorge MD Unavailable Encounter Details Care Team Description Date Type Department Lynette Diana MD 4000 [facility] KS[address] [place] [address] Elevated liver enzymes (Primary Dx) 09/07/2018 Orders Only The [facility] [address] [address] Social History Date Tobacco Use [...]
--- OUTSIDE RECORDS SUMMARY | 2018-11-02 21:45 | XMS REPORT | Encounter Summary ---
Author Author [facility] Organization [facility] Address Unknown Phone Unavailable Care Team Providers Care Music Store Manager Name Role Phone Carla Wilson MD PCP Naima Field MD Unavailable Winnie Jogre MD Unavailable Encounter Details Care Team Description Date Type Department Yan Zavaleta Elevated liver enzymes 09/07/2018 Orders Only The [address] [address] Social History Date Tobacco Use [...]
--- OUTSIDE RECORDS SUMMARY | 2018-11-02 21:45 | XMS REPORT | Encounter Summary ---
Author Author [facility] Organization [facility] Address Unknown Phone Unavailable Care Team Providers Care Canvas Cutter Name Role Phone Carla Wilson MD PCP Naima Field MD Unavailable Winnie Jorge MD Unavailable Emiliano Rodriguez APRN,MERCHANDISING TEAM LEAD-C 7 Reason for Visit * Reason Comments Medication Refill Encounter Details Care Team Description Date Type Department Felisa Sneed MD 4000 [facility] [place], [place] [id number] Medication Refill 09/16/2018 Refill The [facility] [address] [place] [address] [address] [place] [address] Social History Date Tobacco Use Types Packs/Day [...]
--- OUTSIDE RECORDS SUMMARY | 2018-11-02 21:45 | XMS REPORT | Encounter Summary ---
Author Author [facility] Organization [facility] Address Unknown Phone Unavailable Care Team Providers Care Fibreglass Lay Up Worker Name Role Phone Carla Wilson MD PCP Naima Field MD Unavailable Winnie Jorge MD Unavailable Reason for Visit * Reason Comments Weight Gain Encounter Details Care Team Description Date Type Department Oliverio Mcneil LPN Weight Gain 09/08/[address] [facility] [address] [id number] [place], [place] [id number] Social History Date Tobacco Use Types Packs/Day [...] cell phone. Lab requisition faxed to [facility]. * Telephone Encounter - Amee Vazquez RN - 09/17/2018 9:36 AM CDT Received refill request for Bumex today. Noted Bumex not on patient's medication list. Per last notes, Dr. Nelson had asked patient to increase Bumex to 3mg BID. I called and spoke to patient. She states she has been taking 3mg Bumex BID [facility] e 09/15. Patient states her edema has [...] send script at that time. Called [facility] and verified they will be drawing patient's lab s today. Spoke to [employer] On Call, and she said she would make sure [...] adding potassium. Prescription sent to pharmacy in [place], [place]. Asked that labs be redrawn on [...] Deborah Fields is an established patient with [facility]. Signs and Symptoms She reports [...] 201.2 09/10 200.8 Called [facility] in [facility] and requested BMP results to Heart Failure [...] of taking medication. Labs faxed to [facility] * Telephone Encounter - Alice Esposito RN [...] Deborah Fields is an established patient with [facility]. Signs and Symptoms She reports the [...] eGFR K[facility] MAIN LAB Australian Anion Gap 8 K[facility] MAIN LAB Specimen [...] City/State/Zipcode Phone Number [facility] MAIN LAB [address] [place] [address] documented in this encounter Visit Diagnoses Diagnosis Chronic diastolic heart failure (HCC) - Primary Chronic diastolic heart failure documented in this encounter
--- OUTSIDE RECORDS SUMMARY | 2018-11-02 21:45 | XMS REPORT | Encounter Summary ---
Author Author [facility] Organization [facility] Address Unknown Phone Unavailable Care Team Providers Care Tumbler Plater Name Role Phone Carla Wilson MD PCP [...] hepatic cirrhosis type (HCC) [K74.60] P rocedures [place] COLONOSCOPY FLX DX W/COLLJ SPEC WHEN PFRMD [place] EGD ABLATE TUMOR POLYP/LESION W/DILATION& WIRE COLONOSCOPY DIAGNOSTIC WITH SPECIMEN COLLECTION BY BRUSHING/ WASHING - FLEXIBLE ESOPHAGOGASTRODUOD ENOSCOPY WITH ABLATION TUMOR/ POLYP/ OTHER LESION - FLEXIBLE Encounter Details Care Team Description Date Type Department Mona Tapia, POKER SUPERVISOR [address] [place] [address] [phone] 09/07/2018 Anesthesia The [facility] 4000 [place], [place] [id number] Anesthesia Record Responsible Anesthesiologist Anesthesia Start Time [...] A Tapia MD); 1; 09/07/18; 1025 Mona, [facility] 09/07/18 1025 by Janell Jenkins RN Peripheral 09/07/18; 0824; Provider; R; 20 G; 1; 09/07/18 0824 by JUAN A Suarez 09/07/18; 1025 THOMPSON Peña documented in this encounter Social History [...] tablet Take 1 mg by mouth daily. zqqeemvw-lfwrgbott-R-manganese 500-400-2-0.33 mg cap Take 500 mg by [...] Blood Consent: consented Plan discussed with: anesthesiologist, POKER SUPERVISOR and surgeon/proceduralist. documented in this encounter Plan [...]
--- OUTSIDE RECORDS SUMMARY | 2018-11-02 21:46 | XMS REPORT | Encounter Summary ---
Author Author [facility] Organization [facility] Address Unknown Phone Unavailable Care Team Providers Care Banquet Server On Call Name Role Phone Carla Wilson MD PCP Naima Field MD Unavailable Winnie Jorge MD Unavailable Reason for Referral * Consult, Test & Treat (Routine) Referred By Contact Referred To Contact Status Reason Specialty Diagnoses / Procedures Felisa Sneed MD [address] [place] [address] New Request Procedures REQUEST FOR CARDIOLOGY APPOINTMENT * (Routine) Referred By Contact Referred To Contact Status Reason Specialty Diagnoses / Procedures Felisa Sneed MD [address] [place] [address] New Request Procedures REQUEST FOR CARDIOLOGY APPOINTMENT Reason for Visit * Reason Comments CHF follow up * (Routine) Referred By Contact Referred To Contact Status Reason Specialty Diagnoses / Procedures Felisa Sneed MD [address] [place] [address] New Request Procedures REQUEST FOR CARDIOLOGY APPOINTMENT Encounter Details Care Team Description Date Type Department Felisa Sneed MD [address] [place] [address] CHF (follow up) 08/24/2018 Office Visit The [facility] [address] [place] [address] Social History Date Tobacco Use Types Packs/Day [...]
--- OUTSIDE RECORDS SUMMARY | 2018-11-02 21:46 | XMS REPORT | Encounter Summary ---
Author Author [facility] Organization [facility] Address Unknown Phone Unavailable Care Team Providers Care Bank Courier Name Role Phone Carla Wilson MD PCP Naima Field MD Unavailable Winnie Jorge MD Unavailable Reason for Visit * Reason Comments Other call to [place] Encounter Details Care Team Description Date Type Department Lynette Diana MD 4000 [facility] [place] [address] Other (call to [place]) 09/02/2018 Telephone The [facility] [address] [address] Social History Date Tobacco Use [...]
--- OUTSIDE RECORDS SUMMARY | 2018-11-02 21:46 | XMS REPORT | Encounter Summary ---
Author Author [facility] Organization [facility] Address Unknown Phone Unavailable Care Team Providers Care Retail Account Executive Name Role Phone Carla Wilson MD PCP [...] hepatic cirrhosis type (HCC) [K74.60] P rocedures [place] COLONOSCOPY FLX DX W/COLLJ SPEC WHEN PFRMD [place] EGD ABLATE TUMOR POLYP/LESION W/DILATION& WIRE COLONOSCOPY DIAGNOSTIC WITH SPECIMEN COLLECTION BY BRUSHING/ WASHING - FLEXIBLE ESOPHAGOGASTRODUOD ENOSCOPY WITH ABLATION TUMOR/ POLYP/ OTHER LESION - FLEXIBLE Encounter Details Care Team Description Date Type Department Lynette Diana MD 4000 [facility]70 [place] [address] [phone] GAVE (gastric antral vascular ectasia) 09/07/2018 Hospital [facility] 4000 [place] [address] Social History Date Tobacco Use [...] or concerns after your procedure please call [facility] 8am-5:00 pm. After 5:00 pm, holidays or weekends call [phone] a nd ask for the GI Doctor business continuity management director. Colon/Lower EUS/Retrograde Enteroscopy Post Lower Endoscopy Instructions [...] or concerns after your procedure please call [phone] U-F 8am-5:00 pm. After 5:00 pm, holidays or weekends call [phone] a nd ask for the GI Doctor business continuity management director. documented in this encounter Medications at Time [...] 1 mg by 0 tablet mouth daily. axnggrtb-unewoyrnk-R-doug Take 500 mg 0 anese 500-400-2-0.33 mg [...] Bleeding disorder (HCC) CAD (coronary artery disease), [place] coronary artery 02/16/2018 Chronic diastolic heart failure [...] tablet Take 1 mg by mouth daily. hhhyrbzt-xguwunfmo-H-manganese 500-400-2-0.33 mg cap Take 500 mg by [...] GRAFTS (Internal Mammary Artery and Endovascular Vein [place]) performed by Lance Pal MD at [facility] HX MAZE N/A 02/16/2018 MAZE PROCEDURE [...] obtained Consults: Anesthesiology Antolin Erazo MD Pager [phone] Associated attestation - Lynette Diana MD - [...] PATHOLOGY (09/07/2018 9:54 AM CDT) PATHOLOGY [email or web address] Department of Pathology and Laboratory Medicine [address] [place] [address] Surgical Pathology Office:[phone] [phone] SURGICAL PATHOLOGY REPORT NAME: DEBORAH FIELDS SURG PATH #: [id number] MR #: [id number] SPECIMEN CLASS: SR BILLING #: [id number] ALT ID #:LOCATION: GIEND DATE OF PROCEDURE: [...] cassette B1. (lmt) 09/07/2018 Performing Organization Address City/[facility] Phone Number [facility] [address] [place] [address] * COLONOSCOPY (09/07/2018 8:12 AM CDT) Provation Patient Name: Donnie CASTILLO OTHER Report Procedure Date: 09/07/2018 8:12 RESULTS AM CSN: [id number] Date of : 1955 Gender: Female Attending Physician: Lynette Diana MD Procedure: Colonoscop y Indications: Suspected adenomatous polyps in the colon-incomplete colonoscopy 03/2018 Providers: Lynette Diana MD (Doctor), Antolin Erazo (Fellow), Mariana Suarez RN (Nurse), Chapincito Hameed (Director Pharmaceutical) Referring Physician: Naima Field Medications: Propofol per [...] 27 seconds Procedure Code(s): --- Professional --- 25755, GC, Colonoscopy, flexible; with removal of tumor(s), polyp(s), or other lesion(s) by snare technique 22582, 59, Colonoscopy, flexible; with biopsy, single or multiple Diagnosis Code(s): --- Professional --- D12.2, Benign neoplasm of ascending colon D12.4, Benign neoplasm of descending colon D12.5, Benign neoplasm of sigmoid colon K62.5, Hemorrhage of anus and rectum CPT copyright 2017 [employer]. All rights reserved. 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 Requested re look. Providers: Lynette Diana MD (Doctor), Antolin Erazo (Fellow), Mariana Suarez RN (Nurse), Chapincito Hameed (Director Pharmaceutical) Referring Physician: Naima Field Medications: Propofol per [...] 29 seconds Procedure Code(s): --- Professional --- 91514, GC, Esophagogastroduodenoscopy, flexible, transoral; diagnostic, including collection of specimen(s) by brushing or washing, when performed (separate procedure) Diagnosis Code(s): --- Professional --- K22.8, Other specified diseases of esophagus I85.00, Esophageal varices without bleeding K76.6, Portal hypertension K31.89, Other diseases of stomach and duodenum K31.819, Angiodysplasia of stomach and duodenum without bleeding CPT copyright 2017 [employer]. All rights reserved. The codes documented in this report are preliminary and upon laundry manager review may be revised to meet [...] Address City/State/Zipcode Phone Number MAIN LAB [address] [place] [address] * TELEMETRY STRIPS-SCAN (09/07/2018 12:00 AM CDT) [...]
--- OUTSIDE RECORDS SUMMARY | 2018-11-02 21:46 | XMS REPORT | Encounter Summary ---
Author Author [facility] Organization [facility] Address Unknown Phone Unavailable Care Team Providers Care Investigation Specialist Name Role Phone Carla Wilson MD PCP Naima Field MD Unavailable Winnie Jorge MD Unavailable Reason for Visit * Reason Comments Labs Only Encounter Details Care Team Description Date Type Department Rina Ruano MA Labs Only 08/27/2018 Documentation The [facility] [address] [place] [address] Social History Date Tobacco Use Types Packs/Day [...] LAB eGFR Non 13 OTHER OUTSIDE LAB [place] eGFR OTHER OUTSIDE [place] LAB Anion Gap 12 OTHER OUTSIDE LAB BUN/Creatinine 11 OTHER OUTSIDE Ratio LAB Specimen Blood - Blood Performing Organization Address City/State/Zipcode Phone Number OTHER OUTSIDE LAB * TSH WITH FREE T4 REFLEX (08/23/2018) TSH Thyroid 0.13 (L) 0.35 - 4.94 OTHER OUTSIDE Screen LAB T4-Free 1.63 (H) 0.70 - 1.48 OTHER OUTSIDE LAB Specimen Blood - Blood Performing Organization Address City/[facility]/Zipcode Phone Number OTHER OUTSIDE LAB * CBC [...] LAB eGFR Non 12 OTHER OUTSIDE LAB [place] eGFR 12 OTHER OUTSIDE [place] LAB Anion Gap OTHER OUTSIDE LAB BUN/Creatinine 11 OTHER OUTSIDE Ratio LAB Specimen Blood - Blood Performing Organization Address City/State/Zipcode Phone Number OTHER OUTSIDE LAB documented in this encounter Visit Diagnoses Not on filedocumented in this encounter
--- OUTSIDE RECORDS SUMMARY | 2018-11-02 21:46 | XMS REPORT | Encounter Summary ---
Author Author [facility] Organization [facility] Address Unknown Phone Unavailable Care Team Providers Care Wood Fuel Pelletizer Name Role Phone Carla Wilson MD PCP Naima Field MD Unavailable Winnie Jorge MD Unavailable Reason for Visit * Reason Comments Appointment Question Encounter Details Care Team Description Date Type Department Lynette Diana MD [address] [address] Appointment Question 09/03/2018 Telephone The [facility] [address] [address] Social History Date Tobacco Use [...]
--- OUTSIDE RECORDS SUMMARY | 2018-11-02 21:46 | XMS REPORT | Encounter Summary ---
Author Author [facility] Organization [facility] Address Unknown Phone Unavailable Care Team Providers Care Laboratory Tester Name Role Phone Carla Wilson MD PCP [...] hepatic cirrhosis type (HCC) [K74.60] P rocedures MD COLONOSCOPY FLX DX W/COLLJ SPEC WHEN PFRMD MD EGD ABLATE TUMOR POLYP/LESION W/DILATION& WIRE COLONOSCOPY DIAGNOSTIC WITH SPECIMEN COLLECTION BY BRUSHING/ WASHING - FLEXIBLE ESOPHAGOGASTRODUOD ENOSCOPY WITH ABLATION TUMOR/ POLYP/ OTHER LESION - FLEXIBLE Encounter Details Care Team Description Date Type Department Lynette Diana MD [id number] [place] [address] COLONOSCOPY DIAGNOSTIC WITH SPECIMEN COLLECTION BY BRUSHING/ WASHING - FLEXIBLE 09/07/2018 Surgery [facility] [address] [place] [address] Social History Date Tobacco Use [...] or concerns after your procedure please call [phone] R-S 8am-5:00 pm. After 5:00 pm, holidays or weekends call [phone] a nd ask for the GI Doctor promotion manager. Colon/Lower EUS/Retrograde Enteroscopy Post Lower Endoscopy Instructions [...] After 5:00 pm, holidays or weekends call [phone] a nd ask for the GI Doctor promotion manager. documented in this encounter Medications at Time [...] 1 mg by 0 tablet mouth daily. isgqmhlg-agpgfqohe-M-doug Take 500 mg 0 anese 500-400-2-0.33 mg [...] Bleeding disorder (HCC) CAD (coronary artery disease), [place] coronary artery 02/16/2018 Chronic diastolic heart failure [...] tablet Take 1 mg by mouth daily. pbbxntot-nrgnyxoit-G-manganese 500-400-2-0.33 mg cap Take 500 mg by [...] GRAFTS (Internal Mammary Artery and Endovascular Vein Hardy) performed by Lance Pal MD at [facility] HX MAZE N/A 02/16/2018 MAZE PROCEDURE performed by Lance Pal MD at [facility] UPPER GASTROINTESTINAL ENDOSCOPY N/A 03/29/2018 ESOPHAGOGASTRODUODENOSCOPY performed [...] obtained Consults: Anesthesiology Antolin Erazo MD Pager [phone] Associated attestation - Lynette Diana MD - [...] PATHOLOGY (09/07/2018 9:54 AM CDT) PATHOLOGY [email or web address] Department of Pathology and Laboratory Medicine [address] [place] [address] Surgical Pathology Office:[phone] :[phone] SURGICAL PATHOLOGY REPORT NAME: DEBORAH FIELDS Jr SURG PATH #: [id number] MR #: [id number] SPECIMEN CLASS: SR BILLING #: [id number] ALT ID #:LOCATION: [facility] DATE OF PROCEDURE: 09/07/2018 AGE:63 SEX: [...] cassette B1. (lmt) lt09/07/2018 Performing Organization Address City/[facility]/Zipcode Phone Number [facility] [address] [place] [address] * COLONOSCOPY (09/07/2018 8:12 AM CDT) Provation Patient Name: Donnie CASTILLO OTHER Report Procedure Date: 09/07/2018 8:12 RESULTS AM [facility]: [id number] Date of : 1955 Gender: Female Attending Physician: Lynette Diana MD Procedure: Colonoscop y Indications: Suspected adenomatous polyps in the colon-incomplete colonoscopy 03/2018 Providers: Lynette Diana MD (Doctor), Antolin Erazo (Fellow), Mariana Suarez RN (Nurse), Chapincito Hameed (Benefit Director) Referring Physician: Naima Field Medications: Propofol per [...] 27 seconds Procedure Code(s): --- Professional --- 47013, GC, Colonoscopy, flexible; with removal of tumor(s), polyp(s), or other lesion(s) by snare technique 44675, 59, Colonoscopy, flexible; with biopsy, single or multiple Diagnosis Code(s): --- Professional --- D12.2, Benign neoplasm of ascending colon D12.4, Benign neoplasm of descending colon D12.5, Benign neoplasm of sigmoid colon K62.5, Hemorrhage of anus and rectum CPT copyright 2017 [employer]. All rights reserved. The codes documented in this report are preliminary and upon intelligence agent review may be revised to meet current [...] Procedure Date: 09/07/2018 8:01 RESULTS AM CSN: [id number] Date of : 1955 Gender: Female Attending Physician: Lynette Diana MD Procedure: Upper GI endoscopy Indications: Hx of chronic blood loss 2/2 PHG, GAVE. Requested re look. Providers: Lynette Diana MD (Doctor), Antolin Erazo (Fellow), Mariana Suarez RN (Nurse), Chapincito Hameed (Benefit Director) Referring Physician: Naima Field Medications: Propofol per [...] 29 seconds Procedure Code(s): --- Professional --- 44976, GC, Esophagogastroduodenoscopy, flexible, transoral; diagnostic, including collection of specimen(s) by brushing or washing, when performed (separate procedure) Diagnosis Code(s): --- Professional --- K22.8, Other specified diseases of esophagus I85.00, Esophageal varices without bleeding K76.6, Portal hypertension K31.89, Other diseases of stomach and duodenum K31.819, Angiodysplasia of stomach and duodenum without bleeding CPT copyright 2017 [employer]. All rights reserved. The codes documented in this report are preliminary and upon intelligence agent review may be revised to meet current [...] Organization Address City/State/Zipcode Phone Number [facility] [address] [place] [address] * TELEMETRY STRIPS-SCAN (09/07/2018 12:00 AM CDT) [...]
[2018-11-02] MEDS ORDERED: RT-ALBUTEROL SULF 2.5 MG/3 ML PRE-MIX VIAL INH PRN (23:30)
[2018-11-03] VITALS (28 sets, daily range): BP systolic 73–163; BP diastolic 29–107
[2018-11-03] MEDS ORDERED: NS (IVPB) 100 ML ONE (00:17)
[2018-11-03] MEDS ORDERED: PIPERACILLIN/TAZO 4.5 GM VIAL (ZOSYN) IV ONE (00:17)
[2018-11-03] MEDS ORDERED: PIPERACILLIN/TAZO 4.5 GM/NS 100 ML IV SCH ×2 (01:00)
[2018-11-03] MEDS: RT-ALBUTEROL/IPRATROPIUM 3 ML (DUONEB) VIAL INH SCH ×5 (02:12→21:13)
[2018-11-03] MEDS: ACETAMINOPHEN 500 MG TAB (TYLENOL) PO PRN ×2 (03:06→14:13)
[2018-11-03] MEDS: D5 1/2 NS 1000 ML IV SOLUTION 1,000 ML IV SCH (03:06)
[2018-11-03 03:23] LABS: BASOPHILS % (AUTO) 0 % (0-10); EOSINOPHILS % (AUTO) 0 % (0-10); HEMATOCRIT 23 % (35-52); HEMOGLOBIN 7.3 G/DL (11.5-16.0); LYMPHOCYTES # (AUTO) 0.6 X 10^3 (1.0-4.0); LYMPHOCYTES % (AUTO) 15 % (12-44); MEAN CORPUSCULAR HEMOGLOBIN 30 PG (25-34); MEAN CORPUSCULAR HGB CONC 32 G/DL (32-36); MEAN CORPUSCULAR VOLUME 92 FL (80-99); MEAN PLATELET VOLUME 10.1 FL (7.4-10.4); MONOCYTES # (AUTO) 0.6 X 10^3 (0.0-1.0); MONOCYTES % (AUTO) 13 % (0-12); NEUTROPHILS % (AUTO) 72 % (42-75); PLATELET COUNT 120 10^3/uL (130-400); WHITE BLOOD COUNT 4.2 10^3/uL (4.3-11.0)
[2018-11-03 03:49] LABS: ALBUMIN 3.1 GM/DL (3.2-4.5); BILIRUBIN,TOTAL 0.8 MG/DL (0.1-1.0); CALCIUM 8.6 MG/DL (8.5-10.1); CREATININE SERUM 2.81 MG/DL (0.60-1.30); PHOSPHORUS 2.9 MG/DL (2.3-4.7); POTASSIUM 3.8 MMOL/L (3.6-5.0); TOTAL PROTEIN 6.6 GM/DL (6.4-8.2)
[2018-11-03 03:55] LABS: CARDIAC PROFILE 2 0.031 NG/ML (<0.028)
--- NOTE | 2018-11-03 04:28 | Pulmonary Consultation ---
History of Present Illness History of Present Illness Date of Consultation 11/03/18 04:23 Time Seen by Provider: 04:23 Date of Admission History of Present Illness 63yo with hx of anemia requiring multiple transfusions >50units of PRBC , renal failure, IDDM, wheelchair bound, presented to ED from cancer center secondary to malaise,confusion and fever 101.4. She was in [place] and they wanted to admit her to do more ablations but she declined because of the weekend. Pt was admitted to ICU and I am consulted for pulmonary/CC management. Allergies and Home Medications Allergies Coded Allergies: Dcyebnb-Ugq-Yvz Reductase Inhibitor (Verified Allergy, Intermediate, GI UPSET, N/V, 11/06/17) cefadroxil (Unverified Allergy, Mild, 01/01/17) Sulfa (Sulfonamide Antibiotics) (Verified Allergy, Unknown, 06/18/18) Home Medications Acetaminophen 325 Mg Tablet, 650 MG PO Q6H PRN for PAIN-MILD, (Reported) Cetirizine HCl 10 Mg Tablet, 10 MG PO DAILY, (Reported) Digoxin 125 Mcg Tablet, 0.125 MG PO DAILY Prescribed by: MICHELLE GARCIA on 07/01/18811 Diphenhydramine HCl 25 Mg Capsule, 25 MG PO Q6H PRN for ALLERGIES, (Reported) Folic Acid 1 Mg Tablet, 1 MG PO DAILY, (Reported) Furosemide 40 Mg Tablet, 40 MG PO Q48H Prescribed by: MICHELLE GARCIA on 07/01/18 0813 Insulin Aspart 300 Units/3 Ml Solution, 4 UNITS SQ TIDAC, (Reported) Insulin NPH Human Isophane 100 Unit/1 Ml Vial, 14 UNIT SQ DAILY, (Reported) Levothyroxine Sodium 100 Mcg Tablet, 200 MCG PO Q48H Prescribed by: MICHELLE GARCIA on 07/01/18811 Magnesium Oxide 400 Mg Tablet, 400 MG PO BIDPC Prescribed by: MICHELLE GARCIA on 07/01/18811 Metoprolol Tartrate 25 Mg Tablet, 25 MG PO BID Prescribed by: MICHELLE GARCIA on 07/01/18 08 Nitroglycerin 0.4 Mg Tab.subl, 0.4 MG SL UD PRN for CHEST PAIN, (Reported) Omeprazole 40 Mg Capsule.dr, 40 MG PO BID, (Reported) Ondansetron HCl 8 Mg Tablet, 8 MG PO Q8H PRN for NAUSEA/VOMITING-1ST LINE Prescribed by: MICHELLE GARCIA on 07/01/18811 Potassium Chloride 20 Meq Tablet.er, 20 MEQ PO DAILY, (Reported) Sennosides/Docusate Sodium 1 Each Tablet, 1 TAB PO HS, (Reported) Tizanidine HCl 4 Mg Tablet, 4 MG PO TID PRN for MUSCLE SPASMS, (Reported) Tramadol HCl 50 Mg Tablet, 50 MG PO TID PRN for PAIN-MODERATE Prescribed by: MICHELLE GARCIA on 07/01/18811 Triamcinolone Acet 15 Gm Cr, 0 GM TOP BID Prescribed by: MICHELLE GARCIA on 07/01/18811 Past Toxpgqz-Zjwgpb-Ijeqhj Hx Patient Social History Alcohol Use: Denies Use Recreational Drug Use: No Smoking Status: Never a Smoker Type Used: Cigarettes Former Smoker, Quit: May 20, 1980 Recent Foreign Travel: No Contact w/Someone Who Travel: No Recent Infectious Disease Expo: No Recent Hopitalizations: Yes Physical Abuse: No Sexual Abuse: No Immunizations Up To Date Tetanus Booster (TDap): Unknown PED Vaccines UTD: Yes Date of Pneumonia Vaccine: Jun 23, 2016 Date of Influenza Vaccine: May 18, 2018 Seasonal Allergies Seasonal Allergies: Yes Past Medical History Surgeries: Yes Adenoidectomy, Cardiac, CABG, Coronary Stent, Open Heart Surgery, Orthopedic, Tonsillectomy, Tubal Ligation Respiratory: Yes (LEFT PLEURAL EFFUSION) Sleep Apnea Currently Using CPAP: No Currently Using BIPAP: No Cardiac: Yes (CHF, STENT X1; CABG 02/16/2018 x 4 @ [facility]) Atrial Fibrillation, Chronic Edema/Swelling, Coronary Artery Disease, Heart Attack, High Cholesterol, Hypertension Neurological: Yes Reproductive Disorders: No Female Reproductive Disorders: Denies 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 History: Menopausal Sexually Transmitted Disease: No HIV/AIDS: No Genitourinary: Yes Renal Failure Gastrointestinal: Yes (GAVE) Gastroesophageal Reflux, Gastrointestinal Bleed, Diverticulosis, Hemorrhoids, Polyps Musculoskeletal: Yes (POOR AMBULATION--USES WALKER SINCE CABG) Degenerate Disk Disease, Arthritis, Chronic Back Pain, Fractures Endocrine: Yes Diabetes, Insulin dep HEENT: No Loss of Vision: Denies Hearing Impairment: Denies Cancer: No Psychosocial: No Anxiety Integumentary: Yes Psoriasis Blood Disorders: Yes (acute anemia) Adverse Reaction/Blood Tranf: Yes (Antibody JKA) Family Medical History Arthritis G8 BROTHER Completed stroke 19 MOTHER FH: anemia 19 MOTHER FH: lupus G8 SISTER FH: throat cancer 19 FATHER Hypertension G8 SISTER Myocardial infarction 19 MOTHER Thyroid disease 19 MOTHER G8 SISTER Hypertension, Stroke, Other Conditions/Hx Review of Systems Time Seen by Provider: 04:27 Constitutional: Fever, Chills, Sweats, Weakness, Malaise, Other Eyes: No: Pain, Vision change, Conjunctivae inflammation, Eyelid inflammation, Other, Redness ENT: Nose congestion; No: Ear pain, Ear discharge, Nose pain, Nose discharge, Mouth pain, Mouth swelling, Throat pain, Throat swelling, Other Respiratory: Cough, Dry, Shortness of breath, SOB with excertion, Wheezing Gastrointestinal: Nausea, Abdominal Pain; No: Vomiting, Diarrhea Genitourinary: No Dysuria, No Frequency, No Incontinence, No Hematuria, No Retention, No Other Musculoskeletal: back pain Sepsis Event Evaluation Height, Weight, BMI Height: 5'4.00" Weight: 181lbs. 8.0oz. 82.080791in; 31.2 BMI Method:Stated Exam Exam Vital Signs Date Time Temp Pulse Resp B/P (MAP) Pulse Ox O2 Delivery O2 Flow Rate FiO2 11/03/18 03:58 102.4 11/03/18 03:06 103.2 11/03/18 03:06 103.2 11/03/18 02:12 98 Nasal Cannula 2.00 11/03/18 01:10 97.1 11/03/18 01:00 115 11/02/18 23:48 Nasal Cannula 3.00 11/02/18 23:26 98.3 11/02/18 23:14 88 97 11/02/18 22:00 78 11/02/18 21:40 98.8 80 22 104/58 (73) 98 Nasal Cannula 2.00 11/02/18 21:30 85 16 128/52 (77) 99 Nasal Cannula 2.00 11/02/18 21:29 Nasal Cannula 2.00 11/02/18 21:22 98.5 85 18 128/52 (77) 100 Room Air 11/02/18 20:30 90 18 128/52 (77) 98 Nasal Cannula 2.00 11/02/18 20:00 97 18 133/50 (77) 95 Room Air 11/02/18 19:30 85 16 111/45 (67) 99 Nasal Cannula 2.00 11/02/18 19:00 90 21 114/47 (69) 99 Nasal Cannula 2.00 11/02/18 16:15 99 Nasal Cannula 2.00 11/02/18 16:15 99.7 101 18 152/43 (79) 99 I & O 11/03/18 07:00 Intake Total 2620 ml Output Total 475 ml Balance 2145 ml Height & Weight Height: 5'4.00" Weight: 181lbs. 8.0oz. 82.030409lf; 31.2 BMI Method:Stated General Appearance: Anxious, Chronically ill, Mild Distress HEENT: PERRL/EOMI, Normal ENT Inspection, Pharynx Normal Neck: Full Range of Motion, Normal Inspection, Non Tender, Supple Respiratory: Accessory Muscle Use, Crackles, Decreased Breath Sounds Cardiovascular: Regular Rate, Rhythm, No Edema, No JVD, No Murmur, Normal Peripheral Pulses Capillary Refill: Less Than 3 Seconds Gastrointestinal: normal bowel sounds, non tender, soft, no organomegaly, no pulsatile mass Extremity: Normal Capillary Refill, Normal Inspection Neurologic/Psychiatric: Alert, Oriented x3, No Motor/Sensory Deficits Skin: Normal Color, Warm/Dry Lymphatic: No Adenopathy Results Lab Laboratory Tests 11/03/18 03:15 Assessment/Plan Assessment/Plan Pneumonia with sepsis -Change Zosyn to Merrem and Vanco will also add Eraxis secondary to previous bronch cultures -Previous cultures reviewed shows E Coli resistant to Zosyn -Change 1/2 NS to LR -Montero cultures pending -MRSA swab Persistent LLL infiltrate since 06/01 -PT did have bronchoscopy 07/03 which only showed yeast. Cytology was negative Acute on chronic renal failure -IVF Chronic anemia requiring multiple transfusions in past - known to [facility] -Transfuse 1 unit of PRBC -Change to protonix NSTEMI probably secondary to sepsis Acute on chronic renal failure -IVF Pancytopenia -Monitor BRISEIDA IBRAHIM DO November 03, 2018 04:28
[2018-11-03] MEDS ORDERED: PHARMACY TO DOSE IV SCH (04:45)
[2018-11-03] MEDS ORDERED: MEROPENEM 500 MG in WATER (STERILE) FOR INJECTION 10 ML IV SCH (04:45)
[2018-11-03] MEDS: POTASSIUM CL 10MEQ/50ML IVPB 50 ML IV SCH (05:08)
[2018-11-03] MEDS: MAGNESIUM 1 GM/100 ML IVPB 100 ML IV SCH (05:08)
[2018-11-03] MEDS: KCL 20 MEQ TAB (K-DUR) PO SCH (05:08)
[2018-11-03] MEDS: LACTATED RINGERS 1,000 ML IV SCH ×3 (05:28→20:48)
--- NOTE | 2018-11-03 06:48 | NUR ---
PHARMACY TO DOSE VANCOMYCIN: ADJ BW 67 KG, SCr 2.81 EST CrCl 22 LOADING DOSE: 2,000 MG MAIN DOSE: 1,250 MG Q24HR VANCOMYCIN TROUGH DUE 11/04/18 @ 07:00 IF TROUGH >20 HOLD 11/04/18 08:00 DOSE
[2018-11-03] MEDS ORDERED: VANCOMYCIN 2000 MG/NS 500 ML IVPB IV SCH ×2 (07:00)
[2018-11-03] MEDS ORDERED: ANIDULAFUNGIN INJECTION 200 MG in NS (IVPB) 250 ML IV NR (07:30)
--- NOTE | 2018-11-03 08:04 | Diagnostic Imaging Report ---
Indication: Sepsis Portable chest shows normal heart size and vascularity. There is atelectasis and infiltrate in the left lower lobe with small left-sided effusion. No pneumothorax is evident. Port-A-Cath tip is in the SVC. These findings are similar to the 11/02/2018 study. Impression: Stable chest. Dictated by: Dictated on workstation # [id number]
[2018-11-03] MEDS: PANTOPRAZOLE 40 MG (PROTONIX) VIAL IV SCH ×2 (08:50→20:50)
[2018-11-03] MEDS ORDERED: PANTOPRAZOLE 40 MG (PROTONIX) VIAL IV SCH (09:00)
--- NOTE | 2018-11-03 11:05 | Cardiology Progress Note ---
Subjective Date Seen by Provider: November 03, 2018 Time Seen by Provider: 10:57 Subjective/Events-last exam Patient is a 63 y/o female with history of GAVE, requiring multiple blood transfusions, CAD with history of CABG in 2017, PAF, CKD. Presented to the ER from the Cancer center yesterday with complaints of increased fatigue, lethargy, and body aches over the past week. Denies any chest pain. Patient lethargic this morning and only able to answer a few questions. Focused Exam Lactate Level 11/02/18 16:20: Lactic Acid Level 1.78 Objective-Cardiology Exam Last Set of Vital Signs Vital Signs 11/03/18 11/03/18 10:00 12:00 Temp 98.2 Pulse 112 Resp 24 B/P (MAP) 163/69 (100) Pulse Ox 97 O2 Delivery Room Air O2 Flow Rate 3.00 Capillary Refill : Less Than 3 Seconds I&O Intake and Output 11/03/18 00:00 Intake Total 1820 ml Balance 1820 ml IV Total 1820 ml Daily Weight Change Yes, 14-23 lbs General: Cooperative, Mild Distress HEENT: Atraumatic, PERRLA Neck: Supple, No JVD, No Thyromegaly Lungs: Other (rhonci LLL) Heart: Other (Tachycardic) Abdomen: Normal Bowel Sounds, Soft Extremities: No Clubbing, No Cyanosis, Other (trace edema) Skin: No Rashes, No Significant Lesion Neuro: Other (Patient not following commands at this time. ) Results Lab Laboratory Tests 11/03/18 03:15 A/P-Cardiology Admission Diagnosis Sepsis Pneumonia Elevated troponin CAD UTI Assessment/Plan Sepsis with pneumonia- Dr. Snow following. Continue antibiotics, IVF's, continue to monitor. Mildly elevated troponin- could be secondary to sepsis, continue to monitor closely. Repeat EKG. Consider further workup once more stable. Coronary artery disease, history of CABG 4 done in February 2018. Continue to monitor. UTI- management per medical service. Acute on chronic kidney disease. continue IVF's and continue to monitor. Paroxysmal atrial fibrillation- Unable to tolerate OAC secondary to history of GAVE requiring multiple blood transfusion. maintained on low dose beta blockers and digoxin as outpatient. Anemia- worsening. Has been following with Dr. Field. Has received multiple blood transfusions in the past. History of GAVE- per record, possibly planning for another ablation in near future. Left pleural effusion, persistent since the bypass surgery. Maintained on Lasix, continue to monitor. Congestive heart failure, chronic left ventricular diastolic dysfunction, secondary to hypertension. Most recent 2D Echo done 2017 revealed grade 2 diastolic dysfunction. EF 55-60%. Hypertension, controlled on current medication, history of borderline hypotension, continue to monitor History of hepatic cirrhosis, unknown etiology. Scheduled to see a production quality analyst as an outpatient History of esophageal paresis and gastritis. Followed and managed by primary care physician next History of ascites secondary to hepatic cirrhosis History of pneumonia and UTI resulted in septic shock, respiratory failure and encephalopathy Thank you for allowing us to participate in the management of Ms. Fields. This is Ariane Elaine PA-C, as a scribe for Dr. Sosa. Clinical Quality Measures DVT/VTE Risk/Contraindication: Risk Factor Score Per Nursin RFS Level Per Nursing on Admit: 4+=Very High ARIANE WINCHESTER November 03, 2018 11:05
--- NOTE | 2018-11-03 11:21 | History & Physical-Hospitalist ---
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 Haywood who was lethargic, feverish and diagnosed with sepsis and pneumonia placed in ICU and maintained on IV fluids due to creatinine of 3.1. She is very lethargic and can't provide any details. She was placed on Meropenem, Vancomycin and Eraxis with close monitoring of creatinine that is now 2.8. Fever was 103 placed on ice bags and cooling blanket which have improved to 99.[address] Snow, Dr. Sosa and Dr. Haywood consultation. Source: RN/MD, old records Exam Limitations: clinical condition Date Seen 11/03/18 Time Seen by a Provider: 09:11 Attending Physician Sarah Gacria Holly R MD Referring Physician Date of Admission November 02, 2018 at 20:55 Home Medications & Allergies Home Medications Reviewed patient Home Medication Reconciliation performed by pharmacy medication reconciliations hot cell technician and/or nursing. Patients Allergies have been reviewed. Allergies Allergies Coded Allergies Dwgtcfo-Zzf-Vcf Reductase Inhibitor (Verified Allergy, Intermediate, GI UPSET, N/V, 11/06/17) cefadroxil (Unverified Allergy, Mild, 01/01/17) Sulfa (Sulfonamide Antibiotics) (Verified Allergy, Unknown, 06/18/18) Past Ppciojb-Cgwaup-Pffvwm Hx Past Med/Social Hx: Reviewed Nursing Past Med/Soc Hx, Reviewed and Corrections made Patient Social History Marrital Status: single Employed/Student: unemployed Alcohol Use: Denies Use Recreational Drug Use: No Smoking Status: Never a Smoker Former Smoker, Quit: May 20, 1980 Type Used: Cigarettes Recent Foreign Travel: No Contact w/other who traveled: No Recent Hopitalizations: Yes Recent Infectious Disease Expo: No Immunizations Up To Date Tetanus Booster (TDap): Unknown Pediatric: Yes Date of Pneumonia Vaccine: Jun 23, 2016 Date of Influenza Vaccine: May 18, 2018 Seasonal Allergies Seasonal Allergies: Yes Past Medical History Surgeries: Adenoidectomy, Cardiac, CABG, Coronary Stent, Open Heart Surgery, Orthopedic, Tonsillectomy, Tubal Ligation Currently Using CPAP: No Currently Using BIPAP: No Cardiac: Atrial Fibrillation, Chronic Edema/Swelling, Coronary Artery Disease, Heart Attack, High Cholesterol, Hypertension Reproductive: No Sexually Transmitted Disease: No HIV/AIDS: No Female Reproductive Disorders: Denies Menopausal Genitourinary: Renal Failure Gastrointestinal: Gastroesophageal Reflux, Gastrointestinal Bleed, Diverticulosis, Hemorrhoids, Polyps Musculoskeletal: Degenerate Disk Disease, Arthritis, Chronic Back Pain, Fractures Endocrine: Diabetes, Insulin dep Loss of Vision: Denies Hearing Impairment: Denies Psychosocial: Anxiety Skin/Integumentary: Psoriasis History of Blood Disorders: Yes (acute anemia) Adverse Reaction to Blood Wright: Yes (Antibody JKA) Family History Arthritis G8 BROTHER Completed stroke 19 MOTHER FH: anemia 19 MOTHER FH: lupus G8 SISTER FH: throat cancer 19 FATHER Hypertension G8 SISTER Myocardial infarction 19 MOTHER Thyroid disease 19 MOTHER G8 SISTER Hypertension, Stroke, Other Conditions/Hx Review of Systems ROS-Unable to Obtain: confusion precludes details Constitutional: see HPI Physical Exam Physical Exam Vital Signs Vital Signs - First Documented 11/02/18 16:15 Temp 99.7 Pulse 101 Resp 18 B/P (MAP) 152/43 (79) Pulse Ox 99 O2 Delivery Nasal Cannula O2 Flow Rate 2.00 Capillary Refill : Less Than 3 Seconds Height, Weight, BMI Height: 5'4.00" Weight: 192lbs. 3.0oz. 87.205374oi; 31.2 BMI Method:Stated General Appearance: No Apparent Distress, WD/WN, Chronically ill, Obese, Other (declined since last seen, lethargic) Eyes: Right Eye Normal Inspection, Right Eye PERRL HEENT: PERRL/EOMI, Normal ENT Inspection, Pharynx Normal, Moist Mucous Membranes Neck: Full Range of Motion, Normal Inspection, Non Tender Respiratory: Chest Non Tender, Lungs Clear, No Accessory Muscle Use, No Respir atory Distress, Decreased Breath Sounds Cardiovascular: Regular Rate, Rhythm, No Edema, No Gallop, No JVD, No Murmur, Normal Peripheral Pulses Gastrointestinal: Normal Bowel Sounds, No Organomegaly, No Pulsatile Mass, Non Tender, Soft Back: Normal Inspection, No CVA Tenderness, No Vertebral Tenderness Extremity: Normal Capillary Refill, Normal Inspection, Normal Range of Motion, Non Tender, No Calf Tenderness, No Pedal Edema Neurologic/Psychiatric: Alert, No Motor/Sensory Deficits, Normal Mood/Affect, Disoriented Skin: Normal Color, Warm/Dry Lymphatic: No Adenopathy Results Results/Procedures Labs Laboratory Tests 11/03/18 03:15 Patient resulted labs reviewed. Assessment/Plan Admission Diagnosis Assessment: Pneumonia with sepsis Delirium/Lethargy Chronic LLL infiltrate Acute on chronic renal failure Chronic anemia requiring multiple transfusions consulting Dr Field NSTEMI Pancytopenia Severe debility with 80# weight loss since last seen in IRF by this examiner Plan: ICU care Severe debility Appreciate Ana Sosa and Gwendolyn Consult Dr Field Monitor creatinine Admission Status: Inpatient Order (span 2 midnights) Reason for Inpatient Admission: Sepsis with pneumonia Diagnosis/Problems Diagnosis/Problems (1) Acute respiratory failure with hypoxia Status: Acute (2) Sepsis Status: Acute Qualifiers: Sepsis type: sepsis due to unspecified organism Qualified Codes: A41.9 - Sepsis, unspecified organism (3) UTI (urinary tract infection) Status: Acute Qualifiers: Urinary tract infection type: acute cystitis Hematuria presence: without hematuria Qualified Codes: N30.00 - Acute cystitis without hematuria (4) Chronic anemia Status: Chronic (5) Hypoxia Status: Chronic (6) Loss of weight Status: Acute (7) Oxygen dependent Status: Chronic (8) Portal hypertension Status: Chronic (9) Edema Status: Acute (10) Myopathy Status: Acute (11) Port-A-Cath in place Status: Acute (12) B12 deficiency Status: Chronic (13) Contraindication to anticoagulation therapy Status: Chronic (14) Contraindication to antiplatelet therapy Status: Chronic (15) Venous stasis dermatitis Status: Acute (16) Cirrhosis (17) CKD (chronic kidney disease) Status: Chronic (18) Renal insufficiency Status: Acute (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 (20) Type 2 diabetes mellitus with hyperglycemia Status: Chronic (21) GI bleeding Status: Chronic (22) Hypertension Status: Chronic (23) Coronary artery disease Status: Chronic (24) Hypothyroidism Status: Chronic (25) Atrial fibrillation Status: Chronic (26) 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 (27) Red blood cell antibody positive Status: Chronic (28) Fever Status: Acute (29) Hx of CABG Status: Chronic (30) Agitation Status: Acute (31) Confusion Status: Acute (32) Dehydration Status: Acute (33) NSTEMI (non-ST elevated myocardial infarction) Status: Resolved (34) Pleural effusion on left Status: Acute (35) Pneumonia Status: Acute Qualifiers: Pneumonia type: due to unspecified organism Clinical Quality Measures DVT/VTE Risk/Contraindication: Risk Factor Score Per Nursin RFS Level Per Nursing on Admit: 4+=Very High SARAH GARCIA DO November 03, 2018 11:21
[2018-11-03] MEDS ORDERED: METO-333 PO (11:53)
[2018-11-03] MEDS ORDERED: LEVO175T5 PO (11:53)
[2018-11-03] MEDS ORDERED: ONDA8TAB6 PO (11:53)
[2018-11-03] MEDS ORDERED: MAGN400T29 PO (11:53)
[2018-11-03] MEDS ORDERED: DIGO125T PO (11:53)
[2018-11-03] MEDS ORDERED: BUME1TAB4 PO (11:53)
[2018-11-03] MEDS ORDERED: TRAM50TA2 PO (11:53)
[2018-11-03] MEDS ORDERED: FOLI1TAB24 PO (11:53)
--- NOTE | 2018-11-03 11:54 | NUR ---
PATIENT WILL NOT WAKE UP TO GO OVER HER MEDICATION LIST WITH ME AT THIS TIME. I CALLED [facility] FOR A LIST OF RECENTLY FILLED MEDICATIONS. I ALSO HAD A LIST FAXED OVER FROM [facility] MEDICAL RECORDS. [facility] FILLED: 10-27-18 TRAMADOL 50MG TID PRN (HAS NOT BEEN PICKED UP YET) 10-26-18 OMEPRAZOLE 40MG BID (HAS NOT BEEN PICKED UP YET BUT IS A REFILL) 10-20-18 NOVOLIN N 14 UNITS AM 10-19-18 METOPROLOL TARTRATE 25MG 1.5 TAB BID (WAS ON LIST FROM MEDICAL RECORDS 100MG BID HOWEVER WHEN PATIENT WAS HERE IN JUNE THAT DOSE HAD BEEN DECREASED UPON DISCHARGE FROM , I LEFT IT ON MED REC WITH WHAT HAS BEEN FILLED MOST RECENTLY) 10-18-18 ZOFRAN 8MG DAILY 09-28-18 DIGOXIN 125MCG DAILY #30 09-16-18 POTASSIUM 20MEQ BID 45 DAY SUPPLY 09-08-18 LEVOTHYROXINE 175MCG DAILY #90 09-08-18 MAG OX 400MG BID #180 (ON MEDICAL RECORDS LIST DAILY, LEFT ON MED REC BID) 09-06-18 FOLIC ACID 1MG DAILY #60 08-06-18 TIZANIDINE 4MG TID PRN #90 07-06-18 BUMEX 1MG BID #180 (NEWER SCRIPT ON HOLD FOR 1MG DAILY STATING NOT TO FILL UNTIL REQUESTED, ASSUME DOSE HAS BEEN DECREASED. MEDICAL RECORDS LIST HAS IT 1MG BID BUT I PUT THE MOST RECENT SCRIPT ON HAND AT [facility] ON THE MED REC.) 07-06-18 SPIRONOLACTONE 25MG 1/2 DAILY #45 (DID NOT INCLUDE ON MED REC SINCE IT WAS PAST DUE FOR REFILL, IT WAS HOWEVER ON THE LIST FROM MEDICAL RECORDS) ALSO LISTED ON THE LIST FROM MEDICAL RECORDS WERE THE FOLLOWING: *DILTIAZEM 180MG DAILY (HAS NOT BEEN FILLED RECENTLY, HAD BEEN STOPPED AT DISCHARGE FROM WHEN PATIENT WAS HERE IN JUN. I DID NOT INCLUDE IT ON THE MED REC AT THIS TIME) *NOVOLOG FLEXPEN 4 UNITS TID (HAS NOT BEEN FILLED AT [facility], DID NOT INCLUDE ON MED REC AT THIS TIME) NOT LISTED ON THE LIST FROM MEDICAL RECORDS BUT ADDED TO THE MED REC WERE THE FOLLOWING: FOLIC ACID (WAS FILLED 1MG DAILY #60 09-06-18) POTASSIUM (WAS FILLED FOR A 45 DAY SUPPLY 09-16-18 20MEQ BID) NITRO (WAS REPORTED AT PREVIOUS VISIT) BENADRYL (WAS REPORTED PREVIOUSLY OTC PRN) OTC MEDS: TYLENOL PRN ZYRTEC DAILY SENNA S PRN BENADRYL PRN ALSO REPORTED PREVIOUSLY WAS NITRO PRN, I LEFT IT ON THE MED REC AT THIS TIME.
[2018-11-03] MEDS ORDERED: NS IV 500 ML 500 ML ONE (13:13)
--- NOTE | 2018-11-03 13:49 | Consultation-Cardiology ---
HPI-Cardiology Cardiology Consultation Date of Consultation 11/03/18 Date of Admission Time Seen by Provider: 11:00 Indication: CAD, elevated troponin HPI Patient is a 63 y/o female with history of GAVE, requiring multiple blood transfusions, CAD with history of CABG in 2017, PAF, CKD. Presented to the ER from [facility] yesterday with complaints of increased fatigue, lethargy, and body aches over the past week. Denies any chest pain. Patient lethargic this morning and only able to answer a few questions. 63-year-old lady with history of recurrent GI bleed multiple blood transfusion, coronary artery disease and CABG. Presented with generalized fatigue and loss of energy, she was noted to have severe anemia. Patient was noted to have mildly elevated troponin, denied any active chest pain, she is fairly lethargic. Denied any palpitation, syncope or near syncopal episodes. Home Medications & Allergies Allergies: Coded Allergies: Brbsekq-Sks-Xyv Reductase Inhibitor (Verified Allergy, Intermediate, GI UPSET, N/V, 11/06/17) cefadroxil (Unverified Allergy, Mild, 01/01/17) Sulfa (Sulfonamide Antibiotics) (Verified Allergy, Unknown, 06/18/18) Home Medication List Reviewed: Yes medication list reviewed ZKP-Fiched-Byhyig Hx Patient Social History Alcohol Use: Denies Use Recreational Drug Use: No Smoking Status: Never a Smoker Type Used: Cigarettes Recent Foreign Travel: No Recent Infectious Disease Expo: No Recent Hopitalizations: Yes Immunizations Up To Date Tetanus Booster (TDap): Unknown Date of Pneumonia Vaccine: Jun 23, 2016 Date of Influenza Vaccine: May 18, 2018 Past Medical History CAD, PAF, HTN, HLP, GAVE, obesity, anemia Family Medical History Significant Family History: Hypertension, Stroke, Other Conditions/Hx Family History: Arthritis G8 BROTHER Completed stroke 19 MOTHER FH: anemia 19 MOTHER FH: lupus G8 SISTER FH: throat cancer 19 FATHER Hypertension G8 SISTER Myocardial infarction 19 MOTHER Thyroid disease 19 MOTHER G8 SISTER Review of Systems Constitutional: chills, diaphoresis, malaise, weakness, weight loss EENTM: No hearing loss, No blurred vision, No double vision, No vision loss, No epistaxis, No nose pain Respiratory: No cough, No dyspnea on exertion Cardiovascular: No chest pain, No edema; Hx of Intervention; No palpitations; vascular heart diseas Gastrointestinal: No abdominal pain, No constipation, No diarrhea Genitourinary: No dysuria, No frequency Musculoskeletal: No back pain, No muscle pain Skin: No lesions, No rash Psychiatric/Neurological: Denies Anxiety, Denies Depressed Reviewed Test Results Reviewed Test Results Lab Laboratory Tests 11/02/18 15:18: Troponin I 0.036H, C-Reactive Protein High Sensitivity 6.08H, Monoscreen NEGATIVE 11/02/18 16:20: Lactic Acid Level 1.78 11/02/18 17:24: Prothrombin Time 15.8H, INR Comment 1.2, Activated Partial Thromboplast Time 33 11/02/18 17:38: Urine Color YELLOW, Urine Clarity SLIGHTLY CLOUDY, Urine pH 5, Urine Specific Hazard 1.015L, Urine Protein 1+H, Urine Glucose (UA) NEGATIVE, Urine Ketones NEGATIVE, Urine Nitrite NEGATIVE, Urine Bilirubin NEGATIVE, Urine Urobilinogen NORMAL, Urine Leukocyte Esterase 3+H, Urine RBC (Auto) 1+H, Urine RBC 2-5H, Urine WBC TNTCH, Urine Squamous Epithelial Cells 10-25H, Urine Crystals NONE, Urine Bacteria LARGEH, Urine Casts NONE, Urine Mucus NEGATIVE, Urine Culture Indicated CULTURE PENDING 11/02/18 20:08: Magnesium Level 1.6L, Total Bilirubin 0.7, Direct Bilirubin 0.4H, Indirect Bilirubin 0.3, Aspartate Amino Transf (AST/SGOT) 31, Alanine Aminotransferase (ALT/SGPT) 11, Alkaline Phosphatase 41, Troponin I 0.031H, Total Protein 6.2L, Albumin 3.0L, Amylase Level 43, Lipase 33 11/03/18 03:15: Magnesium Level 2.0, Total Bilirubin 0.8, Aspartate Amino Transf (AST/SGOT) 34, Alanine Aminotransferase (ALT/SGPT) 14, Alkaline Phosphatase 45, Troponin I 0.031H, Total Protein 6.6, Albumin 3.1L, White Blood Count 4.2L, Red Blood Count 2.45L, Hemoglobin 7.3L, Hematocrit 23L, Mean Corpuscular Volume 92, Mean Corpuscular Hemoglobin 30, Mean Corpuscular Hemoglobin Concent 32, Red Cell Distribution Width 15.0H, Platelet Count 120L, Mean Platelet Volume 10.1, Neutrophils (%) (Auto) 72, Lymphocytes (%) (Auto) 15, Monocytes (%) (Auto) 13H, Eosinophils (%) (Auto) 0, Basophils (%) (Auto) 0, Neutrophils # (Auto) 3.0, Lymphocytes # (Auto) 0.6L, Monocytes # (Auto) 0.6, Eosinophils # (Auto) 0.0, Basophils # (Auto) 0.0, Sodium Level 136, Potassium Level 3.8, Chloride Level 102, Carbon Dioxide Level 19L, Anion Gap 15H, Blood Urea Nitrogen 36H, Creatinine 2.81H, Estimat Glomerular Filtration Rate 17, BUN/Creatinine Ratio 13, Glucose Level 143H, Calcium Level 8.6, Corrected Calcium 9.3, Phosphorus Level 2.9 Microbiology 11/02/18 Influenza Types A,B Antigen (CODIE) - Final, Complete ECG Impression ECG Initial ECG Rhythm: Normal Sinus Physical Exam Vital Signs Vital Signs - First Documented 11/02/18 16:15 Temp 99.7 Pulse 101 Resp 18 B/P (MAP) 152/43 (79) Pulse Ox 99 O2 Delivery Nasal Cannula O2 Flow Rate 2.00 Capillary Refill : Less Than 3 Seconds Height, Weight, BMI Height: 5'4.00" Weight: 192lbs. 3.0oz. 87.802879ws; 31.2 BMI Method:Stated General Appearance: WD/WN, Mild Distress HEENT: TMs Normal, Normal ENT Inspection Neck: Full Range of Motion, Normal Inspection, Non Tender, Supple Respiratory: Chest Non Tender, No Accessory Muscle Use, No Respiratory Distress, Crackles Cardiovascular: Regular Rate, Rhythm, No Gallop, No JVD, No Murmur, Normal Peripheral Pulses, Other (+1 edema BLE) Gastrointestinal: Non Tender, Soft Rectal: Deferred Back: No CVA Tenderness Extremity: Non Tender, No Calf Tenderness, Pedal Edema Neurologic/Psychiatric: Alert, Oriented x3, mortgage counselor II-XII Norm as Tested A/P-Cardiology Admission Diagnosis Sepsis Pneumonia type II myocardial infarction CAD UTI Assessment/Plan Sepsis with pneumonia- Dr. Snow following. Continue antibiotics, IVF's, continue to monitor. Mildly elevated troponin- could be secondary to sepsis, continue to monitor closely. Repeat EKG. Consider further workup once more stable. Coronary artery disease, history of CABG 4 done in February 2018. Continue to monitor. UTI- management per medical service. Acute on chronic kidney disease. continue IVF's and continue to monitor. Paroxysmal atrial fibrillation- Unable to tolerate OAC secondary to history of GAVE requiring multiple blood transfusion. maintained on low dose beta blockers and digoxin as outpatient. Anemia- worsening. Has been following with Dr. Field. Has received multiple blood transfusions in the past. History of GAVE- per record, possibly planning for another ablation in near future. Left pleural effusion, persistent since the bypass surgery. Maintained on Lasix, continue to monitor. Congestive heart failure, chronic left ventricular diastolic dysfunction, secondary to hypertension. Most recent 2D Echo done 2017 revealed grade 2 diastolic dysfunction. EF 55-60%. Hypertension, controlled on current medication, history of borderline hypotension, continue to monitor History of hepatic cirrhosis, unknown etiology. Scheduled to see a wire machine operator as an outpatient History of esophageal paresis and gastritis. Followed and managed by primary care physician next History of ascites secondary to hepatic cirrhosis History of pneumonia and UTI resulted in septic shock, respiratory failure and encephalopathy Thank you for allowing us to participate in the management of Ms. Fields. This is Ariane Elaine PA-C, as a scribe for Dr. Sosa. This is Dr. Sosa, I have seen and evaluated the patient with Ariane, interviewed the patient perform physical examination, discussed the multiple plan and agree with the current scribed note, patient has sepsis and pneumonia in addition to mildly elevated troponin due to type II myocardial infarction. Conservative management is recommended at this time. We'll continue with antibiotic and continue to monitor, monitor H&H. Continue to monitor renal function. I reviewed the note and made few minor modification using Italic font Clinical Quality Measures DVT/VTE Risk/Contraindication: Risk Factor Score Per Nursin RFS Level Per Nursing on Admit: 4+=Very High ARIANE WINCHESTER November 03, 2018 13:49 AYSE SOSA MD November 03, 2018 13:58
--- NOTE | 2018-11-03 13:50 | Consultation-Cardiology ---
HPI-Cardiology Cardiology Consultation Date of Consultation 11/03/18 Date of Admission Time Seen by Provider: 11:30 Indication: chest pain Home Medications & Allergies Allergies: Coded Allergies: Lkcgiqz-Ijd-Jyq Reductase Inhibitor (Verified Allergy, Intermediate, GI UPSET, N/V, 11/06/17) cefadroxil (Unverified Allergy, Mild, 01/01/17) Sulfa (Sulfonamide Antibiotics) (Verified Allergy, Unknown, 06/18/18) UMR-Wwvqxh-Jizlvn Hx Patient Social History Alcohol Use: Denies Use Recreational Drug Use: No Smoking Status: Never a Smoker Type Used: Cigarettes Recent Foreign Travel: No Recent Infectious Disease Expo: No Recent Hopitalizations: Yes Immunizations Up To Date Tetanus Booster (TDap): Unknown Date of Pneumonia Vaccine: Jun 23, 2016 Date of Influenza Vaccine: May 18, 2018 Family Medical History Significant Family History: Hypertension, Stroke, Other Conditions/Hx Family History: Arthritis G8 BROTHER Completed stroke 19 MOTHER FH: anemia 19 MOTHER FH: lupus G8 SISTER FH: throat cancer 19 FATHER Hypertension G8 SISTER Myocardial infarction 19 MOTHER Thyroid disease 19 MOTHER G8 SISTER Physical Exam Vital Signs Vital Signs - First Documented 11/02/18 16:15 Temp 99.7 Pulse 101 Resp 18 B/P (MAP) 152/43 (79) Pulse Ox 99 O2 Delivery Nasal Cannula O2 Flow Rate 2.00 Capillary Refill : Less Than 3 Seconds Height, Weight, BMI Height: 5'4.00" Weight: 192lbs. 3.0oz. 87.748924pl; 31.2 BMI Method:Stated A/P-Cardiology Admission Diagnosis Sepsis Pneumonia Elevated troponin CAD UTI Assessment/Plan Sepsis with pneumonia- Dr. Snow following. Continue antibiotics, IVF's, continue to monitor. Mildly elevated troponin- could be secondary to sepsis, continue to monitor closely. Repeat EKG. Consider further workup once more stable. Coronary artery disease, history of CABG 4 done in February 2018. Continue to monitor. UTI- management per medical service. Acute on chronic kidney disease. continue IVF's and continue to monitor. Paroxysmal atrial fibrillation- Unable to tolerate OAC secondary to history of GAVE requiring multiple blood transfusion. maintained on low dose beta blockers and digoxin as outpatient. Anemia- worsening. Has been following with Dr. Field. Has received multiple blood transfusions in the past. History of GAVE- per record, possibly planning for another ablation in near future. Left pleural effusion, persistent since the bypass surgery. Maintained on Lasix, continue to monitor. Congestive heart failure, chronic left ventricular diastolic dysfunction, secondary to hypertension. Most recent 2D Echo done 2017 revealed grade 2 diastolic dysfunction. EF 55-60%. Hypertension, controlled on current medication, history of borderline hypotension, continue to monitor History of hepatic cirrhosis, unknown etiology. Scheduled to see a gastroentero logist as an outpatient History of esophageal paresis and gastritis. Followed and managed by primary care physician next History of ascites secondary to hepatic cirrhosis History of pneumonia and UTI resulted in septic shock, respiratory failure and e ncephalopathy Thank you for allowing us to participate in the management of Ms. Fields. This is Ariane Elaine PA-C, as a scribe for Dr. Sosa. Clinical Quality Measures DVT/VTE Risk/Contraindication: Risk Factor Score Per Nursin RFS Level Per Nursing on Admit: 4+=Very High AYSE SOSA MD November 03, 2018 13:50
--- NOTE | 2018-11-03 17:14 | CONSULTATION REPORT ---
DATE OF SERVICE: 11/03/2018 THE PATIENT IS ADMITTED: To ICU bed 5. PHYSICIAN REQUESTING CONSULTATION: Sarah Morrell DO ASSESSMENT: 1. A 63-year-old female admitted to the hospital with fever and mental status changes. 2. Urinary tract infection and pneumonia with probable sepsis. 3. Anemia due to chronic GI bleeding from cirrhosis and gastric varices. RECOMMENDATIONS: 1. Continue broad spectrum antibiotic coverage for infections and probable sepsis. 2. Transfuse packed red blood cells to maintain hemoglobin more than or equal to 8 grams per deciliter because of cardiac problems including paroxysmal atrial fibrillation. 3. Continue to monitor cardiac status. Agree with cardiology and pulmonary consultation. 4. Overall prognosis guarded. BRIEF HISTORY: This is a 63-year-old female who was admitted to the hospital last night with increasing weakness and mental status changes as well as a fever. The patient has not been feeling well for the last several days and had a visit at [facility] last Thursday. She was recommended admission at that time, but returned home. She did not seek medical attention until last evening. Her had mentioned that she was acting different and not oriented. Initial evaluation at the emergency room traced possibility of urinary tract infection as well as pneumonia. She was admitted to the hospital for further management. She has a history of longstanding iron deficiency anemia due to GI bleeding initially requiring packed red blood cell transfusion and parenteral iron therapy. Further workup will raise the possibility of gastric antral vascular ectasia syndrome, but she was also found to have cirrhosis and it was felt that the GI bleeding was from gastric varices. Previously, she was on anticoagulation because of coronary artery disease and stenting, which significantly worsened the GI bleeding. She has been discontinued from all the anticoagulation, but still requires packed red blood cells transfusion frequently to maintain hemoglobin more than or equal to 8 grams per deciliter. PAST MEDICAL HISTORY: Significant for: 1. Hypertension for more than 10 years. 2. Diabetes mellitus type 2 diagnosed approximately 10 years ago with poor control. 3. Hypothyroidism, it is longstanding and on replacement. 4. Coronary artery disease requiring stent placement and CABG. 5. Atrial fibrillation diagnosed less than a year ago. 6. Hypercholesterolemia. 7. Osteoarthritis. PRIOR SURGERIES: Include left ankle reconstruction in 1976, left knee arthroscopic surgery twice in the distant past. PAST SURGICAL HISTORY: Tubal ligation in 1979 bilateral reduction mammoplasty in 1996, cardiac catheterization with stent placement approximately eight years ago, CABG in 02/2018. SOCIAL HISTORY: The patient is and lives in [place], [place]. She has two children, a son who lives in [place] and a daughter who lives close by. 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 She has a 42-henx-poli history of tobacco use, but quit 30 years ago. She has used alcohol socially in the past, but not for few years and denied any recreational drug use. FAMILY HISTORY: Significant for her father with throat cancer at the age of 59, paternal grandfather with colon cancer. Paternal grandmother with colon cancer in her late 50s. Her sister had breast cancer at 40 years, brother had skin cancer. Maternal uncle with lung cancer and aunt with an unknown malignancy while in her 50s. PHYSICAL EXAMINATION: GENERAL: Today showed an elderly female, obese, weak appearing, awake and oriented. VITAL SIGNS: Temperature was 101 degrees Fahrenheit, pulse rate of 101, respirations 20, blood pressure 157/64 with oxygen saturation 98%. HEENT: Normocephalic, extraocular muscles intact, conjunctivae pale, oral mucosa moist. NECK: Supple, with no JVD. No cervical, supraclavicular or axillary lymphadenopathy palpable. CHEST: Symmetrical. Lungs with slightly diminished breath sounds bilaterally without any wheezes or rales. CARDIOVASCULAR EXAM: Fairly irregular with occasional missed beats. No murmurs or gallops heard. ABDOMEN: Obese, soft, nontender with no hepatosplenomegaly or other masses palpable. EXTREMITIES: Showed trace edema. NEUROLOGIC: Showed no focal motor deficits. LABORATORY DATA: CBC done today showed WBC 4.2, hemoglobin 7.3, MCV 92, platelet count 120,000 with neutrophil count 3.0 and lymphocyte count 0.6. Chemistry panel showed normal electrolytes except CO2 level of 19. BUN was 36 and creatinine 2.81 with a GFR 17 mL per minute. Nonfasting glucose was 143. Liver function studies were within normal limits. Troponin was minimally elevated at 0.031. Albumin was 3.1. Protime was 15.8 with INR 1.2. Urine was cloudy with 3+ leukocyte esterase, too numerous to count white blood cells and large amount of bacteria. Preliminary report from the urine culture is showing gram-negative rods. Blood cultures are negative so far. Influenza screen was negative. Chest x-ray done yesterday showed mild left basilar atelectasis versus infiltrate with suspected small left pleural effusion. Overall, left lung base, findings have improved compared to the previous study from 09/27/2018. Mild right basilar atelectasis. Thank you for allowing me to participate in this patient's care. I will follow the patient with you. Job ID: [id number] DocumentID: [id number] Dictated Date: 11/03/2018 15:53:55 Gas Charger Date: 11/03/2018 17:13:44 Dictated By: SHIREEN AGARWAL MD MTDD
[2018-11-03] MEDS: MEROPENEM 500 MG in WATER (STERILE) FOR INJECTION 10 ML IV SCH (18:22)
--- NOTE | 2018-11-03 22:59 | NUR ---
O2 sat 83% while sleeping. 3L oxygen applied. O2 sat up to 93%.
[2018-11-04] VITALS (11 sets, daily range): BP systolic 130–169; BP diastolic 44–75
[2018-11-04] MEDS: LACTATED RINGERS 1,000 ML IV SCH ×2 (01:05→18:29)
[2018-11-04] MEDS: RT-ALBUTEROL/IPRATROPIUM 3 ML (DUONEB) VIAL INH SCH ×5 (02:39→21:49)
[2018-11-04] MEDS: ACETAMINOPHEN 500 MG TAB (TYLENOL) PO PRN (03:00)
[2018-11-04 03:18] LABS: BASOPHILS % (AUTO) 1 % (0-10); EOSINOPHILS # (AUTO) 0.1 10^3/uL (0.0-0.3); EOSINOPHILS % (AUTO) 2 % (0-10); HEMATOCRIT 23 % (35-52); HEMOGLOBIN 7.5 G/DL (11.5-16.0); LYMPHOCYTES # (AUTO) 0.9 X 10^3 (1.0-4.0); LYMPHOCYTES % (AUTO) 26 % (12-44); MEAN CORPUSCULAR HEMOGLOBIN 30 PG (25-34); MEAN CORPUSCULAR HGB CONC 33 G/DL (32-36); MEAN CORPUSCULAR VOLUME 91 FL (80-99); MEAN PLATELET VOLUME 10.4 FL (7.4-10.4); MONOCYTES # (AUTO) 0.4 X 10^3 (0.0-1.0); MONOCYTES % (AUTO) 13 % (0-12); NEUTROPHILS # (AUTO) 2.1 X 10^3 (1.8-7.8); NEUTROPHILS % (AUTO) 59 % (42-75); PLATELET COUNT 105 10^3/uL (130-400); RED CELL DISTRIBUTION WIDTH 15.4 % (10.0-14.5); WHITE BLOOD COUNT 3.5 10^3/uL (4.3-11.0)
[2018-11-04 04:02] LABS: CALCIUM 8.3 MG/DL (8.5-10.1); CREATININE SERUM 2.1 MG/DL (0.60-1.30); MAGNESIUM 1.9 MG/DL (1.8-2.4); PHOSPHORUS 3.2 MG/DL (2.3-4.7); POTASSIUM 3.8 MMOL/L (3.6-5.0)
[2018-11-04] MEDS: inSUlin ASPART (NovoLOG) 1 UNIT/0.01 ML (CHARGE PER UNIT) SC SCH ×4 (04:09→20:46)
[2018-11-04] MEDS: KCL 20 MEQ TAB (K-DUR) PO SCH (04:09)
[2018-11-04] MEDS: MAGNESIUM 1 GM/100 ML IVPB 100 ML IV SCH (04:09)
[2018-11-04] MEDS: POTASSIUM CL 10MEQ/50ML IVPB 50 ML IV SCH (04:09)
--- NOTE | 2018-11-04 04:20 | Pulmonary Progress Note ---
Subjective Time Seen by a Provider: 04:20 Subjective/Events-last exam Pt wants to go home. Sepsis Event Evaluation Height, Weight, BMI Height: 5'4.00" Weight: 192lbs. 3.0oz. 87.134175cn; 31.2 BMI Method:Stated Focused Exam Lactate Level 11/02/18 16:20: Lactic Acid Level 1.78 Exam Exam Vital Signs Date Time Temp Pulse Resp B/P (MAP) Pulse Ox O2 Delivery O2 Flow Rate FiO2 11/04/18 03:05 99 Nasal Cannula 2.00 11/04/18 03:01 100.8 Nasal Cannula 2.00 11/04/18 03:00 95 24 154/56 (88) 100 Nasal Cannula 3.00 11/04/18 02:39 94 Nasal Cannula 2.00 11/04/18 02:00 88 22 141/44 (76) 100 Nasal Cannula 3.00 11/04/18 01:00 87 11/04/18 01:00 87 10 160/63 (95) 100 Nasal Cannula 3.00 11/04/18 00:00 90 25 138/49 (78) 100 Nasal Cannula 3.00 11/03/18 23:02 93 Nasal Cannula 3.00 11/03/18 23:00 87 19 140/53 (82) 100 Nasal Cannula 3.00 11/03/18 22:58 83 Nasal Cannula 3.00 11/03/18 22:55 98.7 Room Air 11/03/18 22:09 82 18 125/45 (71) 97 Room Air 11/03/18 21:54 82 10 126/44 (71) 98 Room Air 11/03/18 21:13 93 Room Air 11/03/18 20:25 85 17 128/50 (76) 98 Room Air 11/03/18 20:00 98.6 80 20 150/68 (95) 96 Room Air 11/03/18 19:30 97 Room Air 11/03/18 18:52 88 11/03/18 18:00 90 20 125/49 (74) 97 Room Air 11/03/18 17:35 99.6 89 144/54 11/03/18 17:35 99.6 11/03/18 17:00 90 51 140/56 (84) 98 Room Air 11/03/18 16:00 102 21 119/29 (59) 95 Room Air 11/03/18 16:00 98 Room Air 11/03/18 16:00 101.4 11/03/18 15:00 103 13 118/38 (64) 95 Room Air 11/03/18 14:46 98 Room Air 11/03/18 14:25 99.2 11/03/18 14:25 99.2 94 16 118/42 96 11/03/18 14:13 101.0 11/03/18 14:09 101.0 101 20 157/64 98 Room Air 11/03/18 14:00 101 33 157/64 (95) 97 Room Air 11/03/18 13:00 102 24 161/62 (95) 96 Room Air 11/03/18 12:00 98 Room Air 11/03/18 12:00 112 24 163/69 (100) 97 Room Air 11/03/18 12:00 98.2 11/03/18 11:00 92 17 140/63 (88) 97 Room Air 11/03/18 10:32 100 Room Air 11/03/18 10:00 92 10 148/80 (102) 99 Nasal Cannula 3.00 11/03/18 09:00 85 17 73/33 (46) 100 Nasal Cannula 3.00 11/03/18 08:00 87 19 123/44 (70) 100 Nasal Cannula 3.00 11/03/18 08:00 98 Nasal Cannula 2.00 11/03/18 08:00 97.5 11/03/18 07:00 87 18 102/37 (58) 97 Nasal Cannula 3.00 11/03/18 07:00 98 11/03/18 06:43 100.2 11/03/18 06:05 100 Nasal Cannula 2.00 11/03/18 06:00 92 18 105/41 (62) 100 Nasal Cannula 3.00 11/03/18 05:27 89 15 112/39 (63) 100 Nasal Cannula 3.00 I & O 11/04/18 07:00 Intake Total 4510 ml Output Total 2250 ml Balance 2260 ml Height & Weight Height: 5'4.00" Weight: 192lbs. 3.0oz. 87.239393li; 31.2 BMI Method:Stated General Appearance: No Apparent Distress, WD/WN, Chronically ill, Obese, Other (declined since last seen, lethargic) HEENT: PERRL/EOMI, Normal ENT Inspection, Pharynx Normal, Moist Mucous Membranes Neck: Full Range of Motion, Normal Inspection, Non Tender Respiratory: Chest Non Tender, Lungs Clear, No Accessory Muscle Use, No Respiratory Distress, Decreased Breath Sounds Cardiovascular: Regular Rate, Rhythm, No Edema, No Gallop, No JVD, No Murmur, Normal Peripheral Pulses Capillary Refill: Less Than 3 Seconds Gastrointestinal: normal bowel sounds, non tender, soft, no organomegaly, no pulsatile mass Extremity: Normal Capillary Refill, Normal Inspection, Normal Range of Motion, Non Tender, No Calf Tenderness, No Pedal Edema Neurologic/Psychiatric: Alert, No Motor/Sensory Deficits, Normal Mood/Affect, Disoriented Skin: Normal Color, Warm/Dry Lymphatic: No Adenopathy Results Lab Laboratory Tests 11/03/18 03:15 11/04/18 03:08 Assessment/Plan Assessment/Plan Pneumonia with sepsis -Merrem and Vanco Eraxis -Previous cultures reviewed shows E Coli resistant to Zosyn -Change 1/2 NS to LR -Montero cultures pending -MRSA swab Chronic LLL infiltrate since 06/01 - Pt has had 4 prior chest tubes in the past -PT did have bronchoscopy 07/03 which only showed yeast. Cytology was negative -Pt does not want repeat bronch at this time Acute on chronic renal failure -IVF Chronic anemia requiring multiple transfusions in past - known to [facility] - protonix NSTEMI probably secondary to sepsis Acute on chronic renal failure -IVF Pancytopenia -Monitor BRISEIDA IBRAHIM DO November 04, 2018 04:20
[2018-11-04] MEDS: MEROPENEM 500 MG in WATER (STERILE) FOR INJECTION 10 ML IV SCH ×2 (05:52→19:17)
[2018-11-04] MEDS ORDERED: TROUGH ORDER-PHARMACY XX NR (07:00)
--- NOTE | 2018-11-04 07:51 | Diagnostic Imaging Report ---
Indication: Sepsis, anemia and renal failure. Comparison: 11/03/2018. Findings: Left basilar heterogeneous consolidations are unchanged. Stable small left pleural effusion. No pneumothorax. Stable cardiac silhouette. Impression: Unchanged exam with left basilar consolidations and small pleural effusion. Dictated by: Dictated on workstation # [id number]
--- NOTE | 2018-11-04 07:52 | Cardiology Progress Note ---
Subjective Date Seen by Provider: November 04, 2018 Time Seen by Provider: 07:47 Subjective/Events-last exam patient is laying down in bed, feeling better, asking to go home, feeling hungry. Denied any chest pain Review of Systems General: No Chills, No Night Sweats, No Fatigue, No Malaise, No Appetite, No Other HEENT: No Head Aches, No Visual Changes, No Eye Pain, No Ear Pain, No Dysphasia, No Sinus Congestion, No Post Nasal Drip, No Sore Throat, No Other Pulmonary: No Dyspnea, No Cough, No Pleuritic Chest Pain, No Other Cardiovascular: No: Chest Pain, Palpitations, Orthopnea, Paroxysmal Noc. Dyspnea, Edema, Lt Headedness, Other Focused Exam Lactate Level 11/02/18 16:20: Lactic Acid Level 1.78 Objective-Cardiology Exam Last Set of Vital Signs Vital Signs 11/04/18 11/04/18 11/04/18 03:01 05:00 07:10 Temp 100.8 Pulse 96 Resp 24 B/P (MAP) 130/51 (77) Pulse Ox 93 O2 Delivery Room Air O2 Flow Rate 2.00 Capillary Refill : Less Than 3 Seconds I&O Intake and Output 11/04/18 00:00 Intake Total 5740 ml Output Total 2675 ml Balance 3065 ml Intake Oral 2440 ml IV Total 1890 ml Other 1410 ml Output Urine Total 2675 ml General: Alert, Oriented X3, Cooperative, No Acute Distress HEENT: Atraumatic, PERRLA Neck: Supple, No JVD, No Thyromegaly Lungs: Other (rhonci LLL) Heart: Regular Rate, Normal S1, Normal S2, Other (systolic murmur at the left sternal border) Abdomen: Normal Bowel Sounds, Soft Extremities: No Clubbing, No Cyanosis, Other (trace edema) Skin: No Rashes, No Significant Lesion Neuro: Normal Speech, Strength at 5/5 X4 Ext, Normal Tone, Sensation Intact Results Lab Laboratory Tests 11/04/18 03:08 A/P-Cardiology Admission Diagnosis Sepsis Pneumonia type II myocardial infarction CAD UTI Assessment/Plan Sepsis with pneumonia, cultures are pending, receiving man and vancomycin, managed by Dr. Snow. Type II myocardial infarction secondary to sepsis, anemia and hypotension in addition to acute renal failure. Was having some chest pain, reporting improvement. continue to monitor Coronary artery disease, history of CABG 4 done in February 2018, she will need stress test as an outpatient once clinically more stable UTI- management per medical service. Acute on chronic renal failure, improving slowly. Continue to monitor Paroxysmal atrial fibrillation- Unable to tolerate OAC secondary to history of GAVE requiring multiple blood transfusion. maintained on low dose beta blockers and digoxin as outpatient. Anemia- worsening. Has been following with Dr. Field. Has received multiple blood transfusions in the past. History of GAVE- per record, possibly planning for another ablation in near future. Left pleural effusion, persistent since the bypass surgery. Maintained on Lasix, continue to monitor. Congestive heart failure, chronic left ventricular diastolic dysfunction, secondary to hypertension. Most recent 2D Echo done 2017 revealed grade 2 diastolic dysfunction. EF 55-60%. Hypertension, controlled on current medication, history of borderline hypotension, continue to monitor History of hepatic cirrhosis, unknown etiology. Scheduled to see a plant engineer as an outpatient History of esophageal paresis and gastritis. Followed and managed by primary care physician next History of ascites secondary to hepatic cirrhosis History of pneumonia and UTI resulted in septic shock, respiratory failure and encephalopathy Clinical Quality Measures DVT/VTE Risk/Contraindication: Risk Factor Score Per Nursin RFS Level Per Nursing on Admit: 4+=Very High AYES DODSON MD November 04, 2018 07:52
[2018-11-04] MEDS ORDERED: VANCOMYCIN 1250 MG/NS 250 ML IVPB IV SCH ×2 (08:00)
[2018-11-04] MEDS: PANTOPRAZOLE 40 MG (PROTONIX) VIAL IV SCH ×2 (08:03→20:46)
--- NOTE | 2018-11-04 08:41 | Progress Note-Hospitalist ---
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 Haywood who was lethargic, feverish and diagnosed with sepsis and pneumonia placed in ICU and maintained on IV fluids due to creatinine of 3.1. She is very lethargic and can't provide any details. She was placed on Meropenem, Vancomycin and Eraxis with close monitoring of creatinine that is now 2.8. Fever was 103 placed on ice bags and cooling blanket which have improved to 99.[address] Snow, Dr. Sosa and Dr. Haywood consultation. Subjective/Events-last exam Pt doing remarkably well. Creatinine improved at 2.1 Wants to eat Has lost 100 lbs in the last six months 4th floor transfer Will initiate PT and OT Wants to go home soon Checked meds and labs Review of Systems General: Fatigue, Malaise Focused Exam Lactate Level 11/02/18 16:20: Lactic Acid Level 1.78 Objective Exam Vital Signs Vital Signs Date Time Temp Pulse Resp B/P (MAP) Pulse Ox O2 Delivery O2 Flow Rate FiO2 11/04/18 16:45 91 98 11/04/18 15:22 Room Air 11/04/18 12:35 99.4 18 149/65 (93) Capillary Refill : Less Than 3 Seconds General Appearance: No Apparent Distress, WD/WN, Chronically ill, Obese HEENT: PERRL/EOMI, Normal ENT Inspection, Pharynx Normal, Moist Mucous Membranes Neck: Full Range of Motion, Normal Inspection, Non Tender Respiratory: Chest Non Tender, Lungs Clear, No Accessory Muscle Use, No Respiratory Distress, Decreased Breath Sounds Cardiovascular: Regular Rate, Rhythm, No Edema, No Gallop, No JVD, No Murmur, Normal Peripheral Pulses Gastrointestinal: Normal Bowel Sounds, No Organomegaly, No Pulsatile Mass, Non Tender, Soft Rectal: Deferred Back: Normal Inspection, No CVA Tenderness, No Vertebral Tenderness Extremity: Normal Capillary Refill, Normal Inspection, Normal Range of Motion, Non Tender, No Calf Tenderness, No Pedal Edema Neurologic/Psychiatric: Alert, Oriented x3, No Motor/Sensory Deficits, Normal Mood/Affect Skin: Normal Color, Warm/Dry Lymphatic: No Adenopathy Results/Procedures Lab Laboratory Tests 11/04/18 03:08 Patient resulted labs reviewed. Assessment/Plan Assessment and Plan Assess & Plan/Chief Complaint Assessment: Pneumonia with sepsis Delirium/Lethargy Chronic LLL infiltrate Acute on chronic renal failure Chronic anemia requiring multiple transfusions consulting Dr Field NSTEMI Pancytopenia Severe debility with 80# weight loss since last seen in IRF by this examiner Plan: Move to 4th floor Severe debility Appreciate Ana Sosa and Gwendolyn Consult Dr Field Monitor creatinine Diagnosis/Problems Diagnosis/Problems (1) Acute respiratory failure with hypoxia Status: Acute (2) Sepsis Status: Acute Qualifiers: Sepsis type: sepsis due to unspecified organism Qualified Codes: A41.9 - Sepsis, unspecified organism (3) UTI (urinary tract infection) Status: Acute Qualifiers: Urinary tract infection type: acute cystitis Hematuria presence: without hematuria Qualified Codes: N30.00 - Acute cystitis without hematuria (4) Chronic anemia Status: Chronic (5) Hypoxia Status: Chronic (6) Loss of weight Status: Acute (7) Oxygen dependent Status: Chronic (8) Portal hypertension Status: Chronic (9) Edema Status: Acute (10) Myopathy Status: Acute (11) Port-A-Cath in place Status: Acute (12) B12 deficiency Status: Chronic (13) Contraindication to anticoagulation therapy Status: Chronic (14) Contraindication to antiplatelet therapy Status: Chronic (15) Venous stasis dermatitis Status: Acute (16) Cirrhosis (17) CKD (chronic kidney disease) Status: Chronic (18) Renal insufficiency Status: Acute (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 (20) Type 2 diabetes mellitus with hyperglycemia Status: Chronic (21) GI bleeding Status: Chronic (22) Hypertension Status: Chronic (23) Coronary artery disease Status: Chronic (24) Hypothyroidism Status: Chronic (25) Atrial fibrillation Status: Chronic (26) 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 (27) Red blood cell antibody positive Status: Chronic (28) Fever Status: Acute (29) Hx of CABG Status: Chronic (30) Agitation Status: Acute (31) Confusion Status: Acute (32) Dehydration Status: Acute (33) NSTEMI (non-ST elevated myocardial infarction) Status: Resolved (34) Pleural effusion on left Status: Acute (35) Pneumonia Status: Acute Qualifiers: Pneumonia type: due to unspecified organism Clinical Quality Measures DVT/VTE Risk/Contraindication: Risk Factor Score Per Nursin RFS Level Per Nursing on Admit: 4+=Very High MICHELLE GARCIA DO November 04, 2018 08:40
[2018-11-04] MEDS: ANIDULAFUNGIN INJECTION 100 MG in NS (IVPB) 100 ML IV SCH (09:54)
--- NOTE | 2018-11-04 10:24 | NUR ---
VANCOMYCIN TROUGH 11/04/18 = 20.3 THOMPSON TRIMBLE HUNG DOSE @ 08:03. ORDERING TROUGH FOR 11/05/18 @ 07:00. IF VANCOMYCIN TROUGH IS GREATER THAN 20 HOLD 11/05/18 08:00 DOSE.
--- NOTE | 2018-11-04 11:55 | NUR ---
REPORT GIVEN TO JUAN MACKAY.
--- NOTE | 2018-11-04 13:35 | NUR ---
Initial visit: pt shared about her own health challenges as well as concerns for her 's health and safety while she is hospitalized. She feels better about him staying home and not attempting to visit.
[2018-11-05 00:14] VITALS: BP 126/56
[2018-11-05] MEDS: RT-ALBUTEROL/IPRATROPIUM 3 ML (DUONEB) VIAL INH SCH ×3 (03:09→07:30)
[2018-11-05 04:00] VITALS: BP 143/61
[2018-11-05] MEDS: LACTATED RINGERS 1,000 ML IV SCH (05:59)
[2018-11-05] MEDS: MEROPENEM 500 MG in WATER (STERILE) FOR INJECTION 10 ML IV SCH ×2 (05:59→17:38)
[2018-11-05] MEDS: POTASSIUM CL 10MEQ/50ML IVPB 50 ML IV SCH (06:04)
[2018-11-05] MEDS: MAGNESIUM 1 GM/100 ML IVPB 100 ML IV SCH (06:05)
[2018-11-05] MEDS: inSUlin ASPART (NovoLOG) 1 UNIT/0.01 ML (CHARGE PER UNIT) SC SCH ×4 (06:05→21:02)
[2018-11-05] MEDS: KCL 20 MEQ TAB (K-DUR) PO SCH ×2 (06:05→17:38)
--- NOTE | 2018-11-05 06:09 | Pulmonary Progress Note ---
Subjective Time Seen by a Provider: 06:09 Sepsis Event Evaluation Height, Weight, BMI Height: 5'4.00" Weight: 197lbs. 0.8oz. 89.669693qw; 31.2 BMI Method:Stated Focused Exam Lactate Level 11/02/18 16:20: Lactic Acid Level 1.78 Exam Exam Vital Signs Date Time Temp Pulse Resp B/P (MAP) Pulse Ox O2 Delivery O2 Flow Rate FiO2 11/05/18 04:00 98.6 95 20 143/61 (88) 93 Room Air 11/05/18 00:14 99.4 96 20 126/56 (79) 94 Room Air 11/04/18 20:00 Room Air 11/04/18 19:26 98.5 86 18 131/56 (81) 98 Room Air 11/04/18 16:45 91 98 11/04/18 16:00 Room Air 11/04/18 15:58 99.2 84 20 145/59 (87) 97 Room Air 11/04/18 15:22 98 Room Air 11/04/18 12:35 99.4 91 18 149/65 (93) 97 Room Air 11/04/18 12:00 95 Room Air 11/04/18 10:34 95 Room Air 2.00 11/04/18 09:00 86 21 Nasal Cannula 2.00 11/04/18 08:00 97.6 11/04/18 08:00 99 Room Air 11/04/18 08:00 85 24 Nasal Cannula 2.00 11/04/18 07:10 93 Room Air 2.00 11/04/18 07:00 82 I & O 11/05/18 07:00 Intake Total 1090 ml Output Total 2125 ml Balance -1035 ml Height & Weight Height: 5'4.00" Weight: 197lbs. 0.8oz. 89.977214fi; 31.2 BMI Method:Stated General Appearance: No Apparent Distress, WD/WN, Chronically ill, Obese HEENT: PERRL/EOMI, Normal ENT Inspection, Pharynx Normal, Moist Mucous Membranes Neck: Full Range of Motion, Normal Inspection, Non Tender Respiratory: Chest Non Tender, Lungs Clear, No Accessory Muscle Use, No Respiratory Distress, Decreased Breath Sounds Cardiovascular: Regular Rate, Rhythm, No Edema, No Gallop, No JVD, No Murmur, Normal Peripheral Pulses Capillary Refill: Less Than 3 Seconds Gastrointestinal: normal bowel sounds, non tender, soft, no organomegaly, no pulsatile mass Extremity: Normal Capillary Refill, Normal Inspection, Normal Range of Motion, Non Tender, No Calf Tenderness, No Pedal Edema Neurologic/Psychiatric: Alert, Oriented x3, No Motor/Sensory Deficits, Normal Mood/Affect Skin: Normal Color, Warm/Dry Lymphatic: No Adenopathy Results Lab Laboratory Tests 11/04/18 03:08 Assessment/Plan Assessment/Plan Pneumonia with sepsis -Merrem and Eraxis -Previous cultures reviewed shows E Coli resistant to Zosyn -MRSA nasal swab is negative - Will D/C Vanco and continue Merrem -Change 1/2 NS to LR -Montero cultures pending -MRSA swab Chronic LLL infiltrate since 06/01 - Pt has had 4 prior chest tubes in the past -PT did have bronchoscopy 07/03 which only showed yeast. Cytology was negative -Pt does not want repeat bronch at this time Acute on chronic renal failure -IVF Chronic anemia requiring multiple transfusions in past - known to [facility] - protonix NSTEMI probably secondary to sepsis Acute on chronic renal failure -IVF Pancytopenia -Monitor BRISEIDA IBRAHIM DO November 05, 2018 06:09
[2018-11-05 06:12] LABS: BASOPHILS % (AUTO) 0 % (0-10); EOSINOPHILS # (AUTO) 0.2 10^3/uL (0.0-0.3); EOSINOPHILS % (AUTO) 7 % (0-10); HEMATOCRIT 22 % (35-52); HEMOGLOBIN 7.3 G/DL (11.5-16.0); LYMPHOCYTES # (AUTO) 0.8 X 10^3 (1.0-4.0); LYMPHOCYTES % (AUTO) 28 % (12-44); MEAN CORPUSCULAR HEMOGLOBIN 31 PG (25-34); MEAN CORPUSCULAR HGB CONC 33 G/DL (32-36); MEAN CORPUSCULAR VOLUME 92 FL (80-99); MEAN PLATELET VOLUME 10.1 FL (7.4-10.4); MONOCYTES # (AUTO) 0.3 X 10^3 (0.0-1.0); MONOCYTES % (AUTO) 10 % (0-12); NEUTROPHILS # (AUTO) 1.6 X 10^3 (1.8-7.8); NEUTROPHILS % (AUTO) 55 % (42-75); PLATELET COUNT 105 10^3/uL (130-400); RED CELL DISTRIBUTION WIDTH 15.2 % (10.0-14.5); WHITE BLOOD COUNT 2.9 10^3/uL (4.3-11.0)
[2018-11-05 06:33] LABS: CALCIUM 8.2 MG/DL (8.5-10.1); CREATININE SERUM 1.82 MG/DL (0.60-1.30); MAGNESIUM 1.9 MG/DL (1.8-2.4); PHOSPHORUS 2.9 MG/DL (2.3-4.7); POTASSIUM 3.8 MMOL/L (3.6-5.0)
--- NOTE | 2018-11-05 07:30 | NUR ---
Patient refusing Duoneb Tx stating "there's no need". Patient assessed and WDL. Will continue to monitor.
[2018-11-05] MEDS ORDERED: TROUGH ORDER-PHARMACY XX NR (08:00)
[2018-11-05 08:06] VITALS: BP 164/70
[2018-11-05] MEDS: PANTOPRAZOLE 40 MG (PROTONIX) VIAL IV SCH (08:45)
--- NOTE | 2018-11-05 09:02 | Physician Query Clarification ---
PQ-Present on Admission Admission/Discharge Admission Date: November 02, 2018 at 20:55 Discharge Date: Question: History of pneumonia and UTI resulted in septic shock,respiratory failure and encephalopathy was documented in consult of Dr. Sosa/Estlea Elaine 11/03. Can you specify if septic shock,respiratory failure and encephalopathy were present on admission? Please document a response in Progress Note or Discharge Summary. 1. Yes - Condition was present at the time of inpatient admission. 2. No - Condition was not present at the time of inpatient admission and it developed during the inpatient stay. 3. W - Provider is unable to clinically determine whether condition was present on admission or not. 4. Other [please specify] PHYSICIAN RESPONSE Condition was Present on Admit: Yes Please remember a lack of response to the above will prompt a phone page by CDI/Coding staff. In responding to this query, please exercise your independent professional judgment. The purpose of this communication is to more accurately reflect the complexity of your patients condition. The fact that a question is asked does not imply that any particular answer is desired or expected. Thank you for your timely response to this clarification. Requestors name: Archana Mcmahon [facility] Phone # [phone] THIS PHYSICIAN QUERY FORM IS A PERMANENT PART OF THE MEDICAL RECORD ARCHANA MCMAHON November 05, 2018 09:02 MICHELLE GARCIA DO November 05, 2018 22:06
[2018-11-05] MEDS: ANIDULAFUNGIN INJECTION 100 MG in NS (IVPB) 100 ML IV SCH (09:59)
--- NOTE | 2018-11-05 10:14 | Cardiology Progress Note ---
Cardiology SOAP Progress Note Subjective: Feeling much better. Objective: I&O/Vital Signs 11/05/18 11/05/18 11/05/18 11/05/18 00:14 04:00 07:32 08:06 Temp 99.4 98.6 98.0 Pulse 96 95 82 Resp 20 20 20 B/P (MAP) 126/56 (79) 143/61 (88) 164/70 (101) Pulse Ox 94 93 96 95 O2 Delivery Room Air Room Air Room Air Room Air O2 Flow Rate 0.00 11/05/18 00:00 Intake Total 560 ml Output Total 1275 ml Balance -715 ml Weight (Pounds): 197 Weight (Ounces): 0.8 Weight (Calculated Kilograms): 89.999189 Constitutional: AAO x 3 Respiratory: chest is bilaterally symmetric, lungs clear to auscultation Cardiovascular: regular rate-rhythm, S1 and S2, systolic murmur Gastrointestional: No tender, No soft, No round, No distended, No pulsatile mass, No organomegaly, No guarding, No rebound, No tenderness, No hernia, No mass, No audible bowel sounds, No abnormal bowel sounds, No abdominal bruits, No spleenomegaly, No other Extremities: No normal range of motion, No non-tender, No normal inspection, No pedal edema, No calf tenderness, No normal capillary refill, No pelvis stable, No calf tenderness, No inflammation, No pedal edema, No slow capillary refill, No swelling, No other, No abrasion, No clubbing, No cyanosis, No ecchymosis, No laceration, No no lower extremity edema bilateral, No significant edema, No tenderness, No wound Neurologic/Psychiatric: no motor/sensory deficits, alert, normal mood/affect, oriented x 3 Results/Procedures: Labs Laboratory Tests 11/04/18 11:41: Lab Scanned Report Transfusion Reaction Form 11/04/18 11:49: Glucometer 111H 11/04/18 15:58: Glucometer 120H 11/04/18 20:36: Glucometer 112H 11/05/18 05:27: Glucometer 141H 11/05/18 06:03: White Blood Count 2.9L, Red Blood Count 2.38L, Hemoglobin 7.3L, Hematocrit 22L, Mean Corpuscular Volume 92, Mean Corpuscular Hemoglobin 31, Mean Corpuscular Hemoglobin Concent 33, Red Cell Distribution Width 15.2H, Platelet Count 105L, Mean Platelet Volume 10.1, Neutrophils (%) (Auto) 55, Lymphocytes (%) (Auto) 28, Monocytes (%) (Auto) 10, Eosinophils (%) (Auto) 7, Basophils (%) (Auto) 0, Neutrophils # (Auto) 1.6L, Lymphocytes # (Auto) 0.8L, Monocytes # (Auto) 0.3, Eosinophils # (Auto) 0.2, Basophils # (Auto) 0.0, Sodium Level 137, Potassium Level 3.8, Chloride Level 108H, Carbon Dioxide Level 21, Anion Gap 8, Blood Urea Nitrogen 19H, Creatinine 1.82H, Estimat Glomerular Filtration Rate 28, BUN/Creatinine Ratio 10, Glucose Level 135H, Calcium Level 8.2L, Phosphorus Level 2.9, Magnesium Level 1.9 11/05/18 06:20: Vancomycin Level Trough 20.3H Microbiology 11/02/18 Blood Culture - Preliminary, Resulted No growth 11/03/18 MRSA Screen - Final, Complete MRSA not isolated 11/02/18 Urine Culture - Final, Complete Mixed Bacterial Geovanna With Escherichia coli A/P: Assessment/Dx: Sepsis Pneumonia type II myocardial infarction CAD UTI Plan: Sepsis with pneumonia, much better, on antibiotics, managed by Dr. Snow. Type II myocardial infarction secondary to sepsis, anemia and hypotension in addition to acute renal failure. Was having some chest pain, reporting improvement. continue to monitor Coronary artery disease, history of CABG 4 done in February 2018, she will need stress test as an outpatient once clinically more stable UTI- management per medical service. Acute on chronic renal failure, improving slowly. Continue to monitor Paroxysmal atrial fibrillation- Unable to tolerate OAC secondary to history of GAVE requiring multiple blood transfusion. maintained on low dose beta blockers and digoxin as outpatient. Anemia- worsening. Has been following with Dr. Field. Has received multiple b lood transfusions in the past. History of GAVE- per record, possibly planning for another ablation in near future. Left pleural effusion, persistent since the bypass surgery. Maintained on Lasix, continue to monitor. Congestive heart failure, chronic left ventricular diastolic dysfunction, secondary to hypertension. Most recent 2D Echo done 2017 revealed grade 2 diastolic dysfunction. EF 55-60%. Hypertension, controlled on current medication, history of borderline hypotension, continue to monitor History of hepatic cirrhosis, unknown etiology. Scheduled to see a medical billing and coding instructor as an outpatient History of esophageal paresis and gastritis. Followed and managed by primary care physician next History of ascites secondary to hepatic cirrhosis History of pneumonia and UTI resulted in septic shock, respiratory failure and encephalopathy. 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 Thank you for your consultation. Please call me if you have any questions. Estela Jorge MD, FACP, FACC, FSCAI, FHRS, CCDS Interventional Cardiology Cardiac Electrophysiology Vascular Medicine and Endovascular Interventions Focused Exam Lactate Level 11/02/18 16:20: Lactic Acid Level 1.78 Wei JORGE MD November 05, 2018 10:14 am
--- NOTE | 2018-11-05 10:55 | Progress Note-Hospitalist ---
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 Haywood who was lethargic, feverish and diagnosed with sepsis and pneumonia placed in ICU and maintained on IV fluids due to creatinine of 3.1. She is very lethargic and can't provide any details. She was placed on Meropenem, Vancomycin and Eraxis with close monitoring of creatinine that is now 2.8. Fever was 103 placed on ice bags and cooling blanket which have improved to 99.[address] Snow, Dr. Sosa and Dr. Haywood consultation. Subjective/Events-last exam Pt doing much better today No fever Wants to go home desperately Likely will be able to DC tomorrow and she reluctantly agrees with that. Creatinine is 1.8 today Goes to [facility] pharmacy for meds so I confirmed they will be open from 8am-5pm tomorrow and those medications will be sent there Ordered PT and OT Catheter has been removed and there appeared to be maybe some clogged catheter tubing because now she does not feel any discomfort Fungal treatment initiated for yeast vaginitis Home meds restarted Review of Systems General: Fatigue Genitourinary: Retention Focused Exam Lactate Level Objective Exam Vital Signs Vital Signs Date Time Temp Pulse Resp B/P (MAP) Pulse Ox O2 Delivery O2 Flow Rate FiO2 11/05/18 21:04 Room Air 11/05/18 19:45 98.6 76 20 159/70 (99) 99 11/05/18 12:39 0.00 Capillary Refill : Less Than 3 Seconds General Appearance: No Apparent Distress, WD/WN, Chronically ill, Obese HEENT: PERRL/EOMI, Normal ENT Inspection, Pharynx Normal, Moist Mucous Membranes Neck: Full Range of Motion, Normal Inspection, Non Tender Respiratory: Chest Non Tender, Lungs Clear, No Accessory Muscle Use, No Respiratory Distress, Decreased Breath Sounds Cardiovascular: Regular Rate, Rhythm, No Edema, No Gallop, No JVD, No Murmur, Normal Peripheral Pulses Gastrointestinal: Normal Bowel Sounds, No Organomegaly, No Pulsatile Mass, Non Tender, Soft Rectal: Deferred Back: Normal Inspection, No CVA Tenderness, No Vertebral Tenderness Extremity: Normal Capillary Refill, Normal Inspection, Normal Range of Motion, Non Tender, No Calf Tenderness, No Pedal Edema Neurologic/Psychiatric: Alert, Oriented x3, No Motor/Sensory Deficits, Normal Mood/Affect Skin: Normal Color, Warm/Dry Lymphatic: No Adenopathy Results/Procedures Lab Laboratory Tests 11/05/18 06:03 Patient resulted labs reviewed. Assessment/Plan Assessment and Plan Assess & Plan/Chief Complaint Assessment: Pneumonia with sepsis Delirium/Lethargy Chronic LLL infiltrate Acute on chronic renal failure Chronic anemia requiring multiple transfusions consulting Dr Field NSTEMI Pancytopenia Severe debility with 80# weight loss since last seen in IRF by this examiner Plan: Possible DC tomorrow Severe debility so ordered PT/OT Appreciate Ana Sosa and Gwendolyn Consult Dr Field Monitor creatinine Diagnosis/Problems Diagnosis/Problems (1) Acute respiratory failure with hypoxia Status: Acute (2) Sepsis Status: Acute Qualifiers: Sepsis type: sepsis due to unspecified organism Qualified Codes: A41.9 - Sepsis, unspecified organism (3) UTI (urinary tract infection) Status: Acute Qualifiers: Urinary tract infection type: acute cystitis Hematuria presence: without hematuria Qualified Codes: N30.00 - Acute cystitis without hematuria (4) Chronic anemia Status: Chronic (5) Hypoxia Status: Chronic (6) Loss of weight Status: Acute (7) Oxygen dependent Status: Chronic (8) Portal hypertension Status: Chronic (9) Edema Status: Acute (10) Myopathy Status: Acute (11) Port-A-Cath in place Status: Acute (12) B12 deficiency Status: Chronic (13) Contraindication to anticoagulation therapy Status: Chronic (14) Contraindication to antiplatelet therapy Status: Chronic (15) Venous stasis dermatitis Status: Acute (16) Cirrhosis (17) CKD (chronic kidney disease) Status: Chronic (18) Renal insufficiency Status: Acute (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 (20) Type 2 diabetes mellitus with hyperglycemia Status: Chronic (21) GI bleeding Status: Chronic (22) Hypertension Status: Chronic (23) Coronary artery disease Status: Chronic (24) Hypothyroidism Status: Chronic (25) Atrial fibrillation Status: Chronic (26) 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 (27) Red blood cell antibody positive Status: Chronic (28) Fever Status: Acute (29) Hx of CABG Status: Chronic (30) Agitation Status: Acute (31) Confusion Status: Acute (32) Dehydration Status: Acute (33) NSTEMI (non-ST elevated myocardial infarction) Status: Resolved (34) Pleural effusion on left Status: Acute (35) Pneumonia Status: Acute Qualifiers: Pneumonia type: due to unspecified organism Clinical Quality Measures DVT/VTE Risk/Contraindication: Risk Factor Score Per Nursin RFS Level Per Nursing on Admit: 4+=Very High MICHELLE GARCIA DO November 05, 2018 10:55
[2018-11-05] MEDS ORDERED: NON-FORMULARY MEDICATION 1 EA EA (Sennosides/Docusate Sodium (Senna S Tablet) 1 TAB) PO PRN (11:00)
[2018-11-05] MEDS ORDERED: NON-FORMULARY MEDICATION 1 EA EA (Ondansetron HCl (Zofran) 8 MG) PO PRN (11:00)
[2018-11-05] MEDS ORDERED: NON-FORMULARY MEDICATION 1 EA EA (Diphenhydramine HCl (Benadryl) 25 MG) PO PRN (11:00)
[2018-11-05] MEDS ORDERED: ACETAMINOPHEN 325 MG TABLET PO PRN (11:00)
[2018-11-05] MEDS ORDERED: NON-FORMULARY MEDICATION 1 EA EA (Nitroglycerin (Nitrostat) 0.4 MG) SL PRN (11:00)
[2018-11-05] MEDS ORDERED: diphenhydrAMINE 25 MG TAB (BENADRYL) PO PRN (11:45)
[2018-11-05] MEDS ORDERED: NITROGLYCERIN 0.4 MG SL TABS BTL 25'S SL PRN (11:45)
[2018-11-05] MEDS ORDERED: ONDANSETRON 4 MG (ZOFRAN) ORAL DISSOLVE TAB PO PRN (11:45)
[2018-11-05] MEDS ORDERED: SENNA W/DOCUSATE (SENOKOT S) TABLET PO PRN (11:45)
[2018-11-05] MEDS: DIGOXIN 0.125 MG (LANOXIN) TAB PO SCH (11:53)
[2018-11-05] MEDS: meTOprolol TARTRATE 25 MG (LOPRESSOR) TABLET PO SCH ×2 (11:55→21:01)
[2018-11-05 12:39] VITALS: BP 168/71
--- NOTE | 2018-11-05 13:09 | Physical Therapy Progress Note ---
Therapy Progress Note PT eval order received. Patient reports she has been ambulating in the hallway independently without LOB or unsteadiness. She says she just went to the bathroom and took a shower on her own without difficulty. She says she doesn't need PT and has no questions. Patient seems perfectly oriented and converses appropriately. PT will not pick her up at this time due to being independent with mobility. Please send further orders if needed. LEIGHTON HOUSER PT November 05, 2018 13:09
--- NOTE | 2018-11-05 14:45 | Occ Therapy Progress Note ---
Therapy Progress Note Order received for OT eval and treat. Chart review completed. Attempted evaluation at 1410. Pt sitting up in chair. Pt states she has been getting up in room independently. States she took a shower without assist and has been getting up to restroom without difficulty. Pt was observed ambulating in hallway with FWW. Pt declined to participate in therapy, stating she is at baseline and there is "no point." Pt states she has the needed equipment at home and has no qu estions or concerns regarding ADLs or home safety. Will dismiss pt from therapy services. Pt sitting in chair with needs met. 1, visit LAURA CARIAS OT November 05, 2018 14:45
--- NOTE | 2018-11-05 15:08 | NUR ---
Pt is hopeful she can be discharged home tomorrow. She worries about her disabled and states she feels much better. [facility].
[2018-11-05 15:42] VITALS: BP 153/68
[2018-11-05 19:45] VITALS: BP 159/70
[2018-11-05] MEDS ORDERED: NON-FORMULARY MEDICATION 1 EA EA (Potassium Chloride 20 MEQ) PO SCH (21:00)
[2018-11-05] MEDS: MAGNESIUM OXIDE (MAG-OX)400 MG TAB PO SCH (21:00)
[2018-11-05] MEDS ORDERED: NON-FORMULARY MEDICATION 1 EA EA (Omeprazole 40 MG) PO SCH (21:00)
[2018-11-06 00:14] VITALS: BP 118/55
[2018-11-06 03:48] VITALS: BP 144/61
--- NOTE | 2018-11-06 05:16 | Pulmonary Progress Note ---
Subjective Time Seen by a Provider: 05:16 Sepsis Event Evaluation Height, Weight, BMI Height: 5'4.00" Weight: 197lbs. 0.8oz. [id number]; 31.2 BMI Method:Stated Exam Exam Vital Signs Date Time Temp Pulse Resp B/P (MAP) Pulse Ox O2 Delivery O2 Flow Rate FiO2 11/06/18 03:48 98.4 68 20 144/61 (88) 94 Room Air 11/06/18 00:14 97.8 71 20 118/55 (76) 95 Room Air 11/05/18 21:04 Room Air 11/05/18 19:45 98.6 76 20 159/70 (99) 99 Room Air 11/05/18 18:10 96 Room Air 11/05/18 15:42 98.4 72 20 153/68 (96) 96 Room Air 11/05/18 12:39 98.6 94 24 168/71 (103) 96 Room Air 0.00 11/05/18 09:00 Room Air 11/05/18 08:06 98.0 82 20 164/70 (101) 95 Room Air 0.00 11/05/18 07:32 96 Room Air I & O 11/06/18 07:00 Intake Total 2592.5 ml Output Total 400 ml Balance 2192.5 ml Height & Weight Height: 5'4.00" Weight: 197lbs. 0.8oz. 89.460377ii; 31.2 BMI Method:Stated General Appearance: No Apparent Distress, WD/WN, Chronically ill, Obese HEENT: PERRL/EOMI, Normal ENT Inspection, Pharynx Normal, Moist Mucous Membranes Neck: Full Range of Motion, Normal Inspection, Non Tender Respiratory: Chest Non Tender, Lungs Clear, No Accessory Muscle Use, No Respiratory Distress, Decreased Breath Sounds Cardiovascular: Regular Rate, Rhythm, No Edema, No Gallop, No JVD, No Murmur, Normal Peripheral Pulses Capillary Refill: Less Than 3 Seconds Gastrointestinal: normal bowel sounds, non tender, soft, no organomegaly, no p ulsatile mass Extremity: Normal Capillary Refill, Normal Inspection, Normal Range of Motion, Non Tender, No Calf Tenderness, No Pedal Edema Neurologic/Psychiatric: Alert, Oriented x3, No Motor/Sensory Deficits, Normal Mood/Affect Skin: Normal Color, Warm/Dry Lymphatic: No Adenopathy Results Lab Laboratory Tests 11/05/18 06:03 Assessment/Plan Assessment/Plan Pneumonia with sepsis -Merrem and Eraxis -Previous cultures reviewed shows E Coli resistant to Zosyn -MRSA nasal swab is negative - - Merrem -LR at 30cc/hr currently -Montero cultures pending -MRSA swab Chronic LLL infiltrate since 06/01 - Pt has had 4 prior chest tubes in the past -Repeat CXR and labs today -PT did have bronchoscopy 07/03 which only showed yeast. Cytology was negative -Pt does not want repeat bronch at this time Acute on chronic renal failure -IVF Chronic anemia requiring multiple transfusions in past - known to [facility] - protonix NSTEMI probably secondary to sepsis Acute on chronic renal failure -IVF Pancytopenia -Monitor BRISEIDA IBRAHIM DO November 06, 2018 05:16
[2018-11-06] MEDS: POTASSIUM CL 10MEQ/50ML IVPB 50 ML IV SCH (05:39)
[2018-11-06] MEDS: MAGNESIUM 1 GM/100 ML IVPB 100 ML IV SCH (05:40)
[2018-11-06] MEDS: inSUlin ASPART (NovoLOG) 1 UNIT/0.01 ML (CHARGE PER UNIT) SC SCH ×2 (06:02→11:02)
[2018-11-06] MEDS: MEROPENEM 500 MG in WATER (STERILE) FOR INJECTION 10 ML IV SCH (06:06)
[2018-11-06] MEDS: KCL 20 MEQ TAB (K-DUR) PO SCH (06:07)
[2018-11-06 06:17] LABS: BASOPHILS % (AUTO) 1 % (0-10); EOSINOPHILS # (AUTO) 0.3 10^3/uL (0.0-0.3); EOSINOPHILS % (AUTO) 8 % (0-10); HEMATOCRIT 24 % (35-52); HEMOGLOBIN 7.8 G/DL (11.5-16.0); LYMPHOCYTES # (AUTO) 1.1 X 10^3 (1.0-4.0); LYMPHOCYTES % (AUTO) 26 % (12-44); MEAN CORPUSCULAR HEMOGLOBIN 30 PG (25-34); MEAN CORPUSCULAR HGB CONC 33 G/DL (32-36); MEAN CORPUSCULAR VOLUME 92 FL (80-99); MEAN PLATELET VOLUME 10.2 FL (7.4-10.4); MONOCYTES # (AUTO) 0.4 X 10^3 (0.0-1.0); MONOCYTES % (AUTO) 9 % (0-12); NEUTROPHILS # (AUTO) 2.6 X 10^3 (1.8-7.8); NEUTROPHILS % (AUTO) 58 % (42-75); PLATELET COUNT 131 10^3/uL (130-400); RED CELL DISTRIBUTION WIDTH 14.9 % (10.0-14.5); WHITE BLOOD COUNT 4.4 10^3/uL (4.3-11.0)
[2018-11-06 06:25] LABS: CALCIUM 8.5 MG/DL (8.5-10.1); CREATININE SERUM 1.47 MG/DL (0.60-1.30); MAGNESIUM 1.9 MG/DL (1.8-2.4); PHOSPHORUS 2.4 MG/DL (2.3-4.7); POTASSIUM 4.1 MMOL/L (3.6-5.0)
[2018-11-06] MEDS ORDERED: LEVOTHYROXINE 75 MCG (LEVOTHROID) TABLET PO SCH (06:30)
[2018-11-06] MEDS ORDERED: LEVOTHYROXINE 100 MCG (LEVOTHROID) TAB PO SCH (06:30)
[2018-11-06 08:00] VITALS: BP 135/64
[2018-11-06] MEDS: meTOprolol TARTRATE 25 MG (LOPRESSOR) TABLET PO SCH (08:40)
[2018-11-06] MEDS: MAGNESIUM OXIDE (MAG-OX)400 MG TAB PO SCH (08:40)
[2018-11-06] MEDS: DIGOXIN 0.125 MG (LANOXIN) TAB PO SCH (08:41)
[2018-11-06] MEDS ORDERED: NON-FORMULARY MEDICATION 1 EA EA (Cetirizine HCl (Zyrtec) 10 MG) PO SCH (09:00)
[2018-11-06] MEDS ORDERED: inSUlin NPH (NovoLIN N) 1 UNIT/0.01 ML (CHARGE PER UNIT) SQ SCH (09:00)
[2018-11-06] MEDS ORDERED: NON-FORMULARY MEDICATION 1 EA EA (Bumetanide 1 MG) PO SCH (09:00)
[2018-11-06] MEDS ORDERED: BUMETANIDE 1 MG (BUMEX) TAB PO SCH (09:00)
[2018-11-06] MEDS ORDERED: NON-FORMULARY MEDICATION 1 EA EA (Levothyroxine Sodium 175 MCG) PO SCH (09:00)
[2018-11-06] MEDS ORDERED: LORATADINE (CLARITIN) 10 MG TAB PO SCH (09:00)
[2018-11-06] MEDS ORDERED: FOLIC ACID 1 MG TAB PO SCH (09:00)
[2018-11-06] MEDS: ANIDULAFUNGIN INJECTION 100 MG in NS (IVPB) 100 ML IV SCH (09:39)
--- NOTE | 2018-11-06 10:06 | Cardiology Progress Note ---
Subjective Date Seen by Provider: November 06, 2018 Time Seen by Provider: 10:05 Subjective/Events-last exam patient is feeling better, breathing better, asking to go home Review of Systems General: No Chills, No Night Sweats, No Fatigue, No Malaise, No Appetite, No Other HEENT: No Head Aches, No Visual Changes, No Eye Pain, No Ear Pain, No Dysphasia, No Sinus Congestion, No Post Nasal Drip, No Sore Throat, No Other Pulmonary: No Dyspnea, No Cough, No Pleuritic Chest Pain, No Other Cardiovascular: No: Chest Pain, Palpitations, Orthopnea, Paroxysmal Noc. Dyspnea, Edema, Lt Headedness, Other Objective-Cardiology Exam Last Set of Vital Signs Vital Signs 11/05/18 11/06/18 11/06/18 12:39 08:00 08:45 Temp 98.6 Pulse 73 Resp 16 B/P (MAP) 135/64 (87) Pulse Ox 98 O2 Delivery Room Air O2 Flow Rate 0.00 Capillary Refill : Less Than 3 Seconds I&O Intake and Output 11/06/18 00:00 Intake Total 2842.5 ml Output Total 700 ml Balance 2142.5 ml Intake Oral 1450 ml IV Total 1392.5 ml Output Urine Total 700 ml # Voids 3 # Bowel Movements 2 General: Alert, Oriented X3, Cooperative, No Acute Distress HEENT: Atraumatic, PERRLA Neck: Supple, No JVD, No Thyromegaly Lungs: Other (rhonci LLL) Heart: Regular Rate, Normal S1, Normal S2, Other (systolic murmur at the left sternal border) Abdomen: Normal Bowel Sounds, Soft Extremities: No Clubbing, No Cyanosis, Other (trace edema) Skin: No Rashes, No Significant Lesion Neuro: Normal Speech, Strength at 5/5 X4 Ext, Normal Tone, Sensation Intact Results Lab Laboratory Tests 11/06/18 05:50 A/P-Cardiology Admission Diagnosis Sepsis Pneumonia type II myocardial infarction CAD UTI Assessment/Plan Sepsis with pneumonia, better at this time, on Merrem, managed by Dr. Snow Type II myocardial infarction secondary to sepsis, anemia and hypotension in addition to acute renal failure. Was having some chest pain, reporting improvement. continue to monitor Coronary artery disease, history of CABG 4 done in February 2018, she will need stress test as an outpatient once clinically more stable UTI- management per medical service. Acute on chronic renal failure, improving slowly. Continue to monitor Paroxysmal atrial fibrillation- Unable to tolerate OAC secondary to history of GAVE requiring multiple blood transfusion. maintained on low dose beta blockers and digoxin as outpatient. Anemia- worsening. Has been following with Dr. Field. Has received multiple blood transfusions in the past. History of GAVE- per record, possibly planning for another ablation in near future. Left pleural effusion, persistent since the bypass surgery. Maintained on Lasix, continue to monitor. Congestive heart failure, chronic left ventricular diastolic dysfunction, secondary to hypertension. Most recent 2D Echo done 2017 revealed grade 2 diastolic dysfunction. EF 55-60%. Hypertension, controlled on current medication, history of borderline hypotension, continue to monitor History of hepatic cirrhosis, unknown etiology. Scheduled to see a relations mgr as an outpatient History of esophageal paresis and gastritis. Followed and managed by primary care physician next History of ascites secondary to hepatic cirrhosis History of pneumonia and UTI resulted in septic shock, respiratory failure and encephalopathy Clinical Quality Measures DVT/VTE Risk/Contraindication: Risk Factor Score Per Nursin RFS Level Per Nursing on Admit: 4+=Very High AYSE DODSON MD November 06, 2018 10:06
--- NOTE | 2018-11-06 10:32 | Diagnostic Imaging Report ---
INDICATION: Shortness of air COMPARISON: 11/04/2018 TECHNIQUE: Single radiograph of the chest dated 11/06/2018. FINDINGS: Right-sided Port-A-Cath is stable. Postsurgical changes of a median sternotomy. Cardiac silhouette is unchanged. Mild pulmonary vascular congestion. Moderate sized left-sided pleural-parenchymal opacity, slightly worsened since the prior examination. Right lung remains clear of focal pulmonary opacity. No significant right pleural effusion. No pneumothorax. No acute osseous abnormality. IMPRESSION: Slightly worsening moderate-sized left-sided pleural-parenchymal opacity, felt to relate to a combination of pleural fluid with adjacent atelectasis and/or infiltrate. Mild pulmonary vascular congestion. Remainder of the examination appears stable. Dictated by: Dictated on workstation # [id number]
[2018-11-06 12:00] VITALS: BP 175/74
[2018-11-06] MEDS ORDERED: CEFD300C3 PO (12:50)
--- NOTE | 2018-11-06 12:52 | Discharge Summary-Hospitalist ---
Diagnosis/Chief Complaint Date of Admission November 02, 2018 at 20:55 Date of Discharge Discharge Date: November 06, 2018 Admission Diagnosis Assessment: Pneumonia with sepsis Delirium/Lethargy Chronic LLL infiltrate Acute on chronic renal failure Chronic anemia requiring multiple transfusions consulting Dr Field NSTEMI Pancytopenia Severe debility with 80# weight loss since last seen in IRF by this examiner Plan: ICU care Severe debility Appreciate Ana Sosa and Gwendolyn Consult Dr Field Monitor creatinine Discharge Diagnosis (1) Acute respiratory failure with hypoxia Status: Acute (2) Pneumonia Status: Acute (3) Sepsis Status: Acute (4) UTI (urinary tract infection) Status: Acute (5) Chronic anemia Status: Chronic (6) Hypoxia Status: Chronic (7) Loss of weight Status: Acute (8) Oxygen dependent Status: Chronic (9) Portal hypertension Status: Chronic (10) Edema Status: Acute (11) Myopathy Status: Acute (12) Port-A-Cath in place Status: Acute (13) B12 deficiency Status: Chronic (14) Contraindication to anticoagulation therapy Status: Chronic (15) Contraindication to antiplatelet therapy Status: Chronic (16) Venous stasis dermatitis Status: Acute (17) Cirrhosis (18) CKD (chronic kidney disease) Status: Chronic (19) Renal insufficiency Status: Acute (20) Transfusion-dependent anemia Status: Chronic (21) Type 2 diabetes mellitus with hyperglycemia Status: Chronic (22) GI bleeding Status: Chronic (23) Hypertension Status: Chronic (24) Coronary artery disease Status: Chronic (25) Hypothyroidism Status: Chronic (26) Atrial fibrillation Status: Chronic (27) 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 (28) Red blood cell antibody positive Status: Chronic (29) Fever Status: Acute (30) Hx of CABG Status: Chronic (31) Agitation Status: Acute (32) Confusion Status: Acute (33) Dehydration Status: Acute (34) NSTEMI (non-ST elevated myocardial infarction) Status: Resolved (35) Pleural effusion on left Status: Acute Discharge Summary Discharge Physical Exam Allergies: Coded Allergies: [id number] Reductase Inhibitor (Verified Allergy, Intermediate, GI UPSET, N/V, 11/06/17) cefadroxil (Unverified Allergy, Mild, 01/01/17) Sulfa (Sulfonamide Antibiotics) (Verified Allergy, Unknown, 06/18/18) Vitals & I&Os Vital Signs Date Time Temp Pulse Resp B/P (MAP) Pulse Ox O2 Delivery O2 Flow Rate FiO2 11/06/18 13:00 11/06/18 12:00 97.9 69 20 100 Room Air 11/06/18 00:14 General Appearance: No Apparent Distress, WD/WN, Chronically ill Respiratory: Chest Non Tender, Lungs Clear, Normal Breath Sounds, No Accessory Muscle Use, No Respiratory Distress Cardiovascular: Regular Rate, Rhythm, No Edema, No Gallop, No JVD, No Murmur, Normal Peripheral Pulses Neurologic/Psychiatric: Alert, Oriented x3, No Motor/Sensory Deficits, Normal Mood/Affect Hospital Course Was the Problem List Reviewed?: Yes Hospital course: Patient had an uneventful hospital course for 5 days after being admitted to the ICU for sepsis pneumonia UTI and acute renal failure. She was placed on broad-spectrum antibiotics and antifungal treatment. Dr. Snow was consulted. Delirium resolved within 2 days so patient was transferred to fourth floor to continue recovery. IV fluids continued with good resolution of acute renal failure creatinine of 3.1 down to baseline 1.[address] Haywood was consulted to. Dr. Sosa and Dr. Snow followed along. Home meds were restarted patient was able to ambulate and patient was deemed stable for discharge at her request in addition to clinically stability obtained so she was discharged in improved condition with continuing 5 more days of Omnicef to complete her treatment. Labs (last 24 hrs) Laboratory Tests 11/05/18 15:42: Glucometer 192H 11/05/18 21:01: Glucometer 146H 11/06/18 05:37: Glucometer 138H 11/06/18 05:50: White Blood Count 4.4, Red Blood Count 2.59L, Hemoglobin 7.8L, Hematocrit 24L, Mean Corpuscular Volume 92, Mean Corpuscular Hemoglobin 30, Mean Corpuscular Hemoglobin Concent 33, Red Cell Distribution Width 14.9H, Platelet Count 131, Mean Platelet Volume 10.2, Neutrophils (%) (Auto) 58, Lymphocytes (%) (Auto) 26, Monocytes (%) (Auto) 9, Eosinophils (%) (Auto) 8, Basophils (%) (Auto) 1, Neutrophils # (Auto) 2.6, Lymphocytes # (Auto) 1.1, Monocytes # (Auto) 0.4, Eosinophils # (Auto) 0.3, Basophils # (Auto) 0.0, Sodium Level 136, Potassium Level 4.1, Chloride Level 108H, Carbon Dioxide Level 22, Anion Gap 6, Blood Urea Nitrogen 17, Creatinine 1.47H, Estimat Glomerular Filtration Rate 36, BUN/Creatinine Ratio 12, Glucose Level 114H, Calcium Level 8.5, Phosphorus Level 2.4, Magnesium Level 1.9, B-Type Natriuretic Peptide 395.7H 11/06/18 10:57: Glucometer 134H Microbiology 11/02/18 Blood Culture - Preliminary, Resulted No growth 11/03/18 MRSA Screen - Final, Complete MRSA not isolated 11/02/18 Urine Culture - Final, Complete Mixed Bacterial Geovanna With Escherichia coli Patient resulted labs reviewed. Pending Labs Laboratory Tests 11/06/18 10:57: Glucometer 134 Discussion & Recommendations Discharge Planning: <30 minutes discharge planning Discharge Home Medications: Active Scripts Active Cefdinir 300 Mg Capsule 300 Mg PO BID Reported Bumetanide 1 Mg Tablet 1 Mg PO DAILY Metoprolol Tartrate 25 Mg Tablet 37.5 Mg PO BID TAKES 1 & 1/2 (25MG) TABLET Folic Acid 1 Mg Tablet 1 Mg PO DAILY Zofran (Ondansetron HCl) 8 Mg Tablet 8 Mg PO DAILY PRN Digoxin 125 Mcg Tablet 125 Mcg PO DAILY Tramadol HCl 50 Mg Tablet 50 Mg PO TID PRN Magox 400 (Magnesium Oxide) 400 Mg Tablet 400 Mg PO BID Levothyroxine Sodium 175 Mcg Tablet 175 Mcg PO DAILY Tylenol (Acetaminophen) 325 Mg Tablet 325 Mg PO Q4H PRN Senna S Tablet (Sennosides/Docusate Sodium) 1 Each Tablet 1 Tab PO HS PRN Nitrostat (Nitroglycerin) 0.4 Mg Tab.subl 0.4 Mg SL UD PRN Novolin N (Insulin NPH Human Isophane) 100 Unit/1 Ml Vial 14 Unit SQ DAILY Benadryl (Diphenhydramine HCl) 25 Mg Capsule 25 Mg PO Q6H PRN Zyrtec (Cetirizine HCl) 10 Mg Tablet 10 Mg PO DAILY Tizanidine HCl 4 Mg Tablet 4 Mg PO TID PRN Potassium Chloride 20 Meq Tablet.er 20 Meq PO BID Omeprazole 40 Mg Capsule.dr 40 Mg PO BID Instructions to patient/family Please see electronic discharge instructions given to patient. Clinical Quality Measures DVT/VTE Risk/Contraindication: Risk Factor Score Per Nursin RFS Level Per Nursing on Admit: 4+=Very High Problem Qualifiers (1) Pneumonia: Pneumonia type: due to unspecified organism (2) Sepsis: Sepsis type: sepsis due to unspecified organism Qualified Codes: A41.9 - Sepsis, unspecified organism (3) UTI (urinary tract infection): Urinary tract infection type: acute cystitis Hematuria presence: without hem aturia Qualified Codes: N30.00 - Acute cystitis without hematuria MICHELLE GARCIA DO November 06, 2018 12:52
[2018-11-07] MEDS ORDERED: fentaNYL INJECTION 100 MCG/2 ML AMP ONE (12:01)
[2018-11-07] MEDS ORDERED: MIDAZOLAM 5 MG/5 ML (VERSED) VIAL ONE (12:01)
[2018-11-07] MEDS ORDERED: LIDOCAINE 1% INJ 20 ML 20 ML VIAL ONE (12:01)
[2018-11-07] MEDS ORDERED: HEParin (CATH LAB) 0 ML IV ONE (12:02)
== END 2018-11-06 13:05 | disposition home or self-care (01) | DRG 871 ==
LOC: EDUNIT# 16:15 → ER 16:16 → ICU 20:55 → 4TH 11-04 12:06
PROVIDERS: ADMIT Internal Medicine; ATTEND Internal Medicine
DX: A41.9 Sepsis, unspecified organism (principal); J18.1 Lobar pneumonia, unspecified organism; R65.21 Severe sepsis with septic shock; N30.00 Acute cystitis without hematuria; I21.A1 Myocardial infarction type 2; K31.811 Angiodysplasia of stomach and duodenum with bleeding; J96.01 Acute respiratory failure with hypoxia; K76.6 Portal hypertension; I13.0 Hypertensive heart and chronic kidney disease with heart failure and stage 1 through stage 4 chronic kidney disease, or unspecified chronic kidney disease; I50.32 Chronic diastolic (congestive) heart failure; N18.9 Chronic kidney disease, unspecified; I85.10 Secondary esophageal varices without bleeding; N17.9 Acute kidney failure, unspecified; J90 Pleural effusion, not elsewhere classified; D61.818 Other pancytopenia; G93.41 Metabolic encephalopathy; D50.0 Iron deficiency anemia secondary to blood loss (chronic); K74.60 Unspecified cirrhosis of liver; E78.00 Pure hypercholesterolemia, unspecified; I25.10 Atherosclerotic heart disease of native coronary artery without angina pectoris; I25.2 Old myocardial infarction; I48.0 Paroxysmal atrial fibrillation; E11.65 Type 2 diabetes mellitus with hyperglycemia; E03.9 Hypothyroidism, unspecified; E86.0 Dehydration; Z99.81 Dependence on supplemental oxygen; B37.3 Candidiasis of vulva and vagina; Z95.1 Presence of aortocoronary bypass graft; Z95.5 Presence of coronary angioplasty implant and graft; Z79.4 Long term (current) use of insulin
CPT/HCPCS: 36415; 71045; 74176; 80048; 80053; 80076; 80202; 81000; 82150; 82962; 83605; 83690; 83735; 83880; 84100; 84484; 85025; 85610; 85730; 86141; 86308; 86850; 86900; 86901; 86922; 87040; 87077; 87081; 87088; 87186; 87804; 93005; 93041; 94640; 94760; 96361; 96365; 96375; 99291

== ENCOUNTER 2018-12-27 15:56 | Inpatient (IN) | payer MEDICARE ==
[2018-12-27] VITALS (8 sets, daily range): BP systolic 96–114; BP diastolic 33–85
[~2018-12-27] VITALS: Ht 162.6 cm; Wt 89.0 kg
[~2018-12-27 15:56] MED LIST changes: +BUME1TAB4 PO; +CEFD300C3 PO; +DIGO125T PO; +MAGN400T29 PO; +ONDA8TAB6 PO
--- OUTSIDE RECORDS SUMMARY | 2018-12-27 16:02 | XMS REPORT | Clinical Summary ---
Author Author [facility] Organization [facility] Address Unknown Phone Unavailable Care Team Providers Care Aviation Survival Technician Name Role Phone Carla Wilson MD PCP Naima Field MD Unavailable Winnie Jorge MD Unavailable Emiliano Rodriguez APRN,PERSONAL CLOTHING LAUNDRY AIDE-C 7 Source Comments Some departments are not documenting in the electronic medical record. If you d o not see the information that you expected, contact Release of Information in [facility] Information Management department at [phone] for further assistan ce in locating additional records.[facility] Allergies Comments Active Allergy Reactions Severity [...] directed daily as needed (For Hemorrhoids). Active goowjhhg-wkkcgctsl-E-doug Take 500 mg 0 anese 500-400-2-0.33 mg by mouth cap twice daily. Active magnesium oxide (MAG-OX) Take 400 mg 0 400 mg (241.3 mg by mouth magnesium) tablet twice daily. Active levothyroxine (SYNTHROID) Take 175 mcg 0 175 mcg tablet by mouth every 48 hours. Active digoxin (LANOXIN) 125 mcg Take one 90 tablet 1 tablet tablet by 9 mouth every 48 hours. Active bumetanide (BUMEX) 1 mg Take one 60 tablet 2 tablet tablet by 9 mouth daily. Active metoprolol tartrate Take one 180 tablet 3 (LOPRESSOR) 25 mg tablet tablet by 9 mouth twice daily. 11/30/2018 Discontinued metoprolol tartrate Take one 180 tablet 3 (LOPRESSOR) 37.5 mg tablet by 9 tablet mouth twice daily. Active Problems Problem Noted Date CKD 09/30/2018 Morbid obesity 06/01/2018 Acute on chronic diastolic heart failure due to coronary artery disease 03/31/2018 Chronic diastolic heart failure 03/31/2018 Long's esophagus 03/30/2018 Left leg cellulitis 03/29/2018 Pleural effusion on left 03/26/2018 Essential hypertension 02/23/2018 DELROY (acute kidney injury) 02/18/2018 CAD (coronary artery disease), [place] coronary artery 02/16/2018 Overview: 02/16/18: CABG x4 [...] Overview: Added automatically from request for surgery [id number] Resolved Problems Problem Noted Date Resolved Date [...] Description Date Type Specialty Clary Martins RN Lab Request 12/09/2018 Telephone Cardiology Oliverio Mcneil LPN Follow Up (lab results, metoprolol dose change ) 12/02/2018 Telephone Cardiology Rina Ruano MA 12/02/2018 Documentation Cardiology Felisa Sneed MD Post-hospital Follow Up 11/30/2018 Office Visit Cardiology Janell Del Cid Labs Only 11/24/2018 Documentation Cardiology Leslee Cotton Labs Only 11/17/2018 Documentation Cardiology Oliverio Mcneil LPN Weight Gain 11/12/2018 Telephone Cardiology Antolin Erazo Chronic blood loss anemia (Primary Dx) 11/10/2018 Office Visit Gastroenterology Clary Martins RN Follow-up Phone Call 11/05/2018 Telephone Cardiology Clary Martins RN Lab Results 11/03/2018 Documentation Cardiology Estrella Faria LPN Hospitalized Patient (pt lm she is in ICU in [place]) 11/03/2018 Telephone Cardiology Clary Martins RN Follow Up 11/03/2018 Telephone Cardiology Janell Del Cid Labs Only 11/03/2018 Documentation Cardiology Clary Martins RN Other (GI referral) 11/01/2018 Telephone Cardiology Clary Martins RN Chronic gastrointestinal bleeding (Primary Dx) 11/01/2018 Orders Only Cardiology Emiliano Rodriguez APRN,PERSONAL CLOTHING LAUNDRY AIDE-C 10/29/2018 Hospital Cardiology Encounter Emiliano Rodriguez APRN,PERSONAL CLOTHING LAUNDRY AIDE-C Cardiac Eval (PAF; CAD; HLD; CHRONIC DIASTOLIC [...] Lab Results 10/01/2018 Documentation Cardiology Emiliano Rodriguez APRN,PERSONAL CLOTHING LAUNDRY AIDE-C Follow Up; Medications Only; Heart Failure; Shortness of Breath; Leg Swelling 09/30/2018 Office Visit Cardiology Emiliano Rodriguez, SAMANTHA,PERSONAL CLOTHING LAUNDRY AIDE-C Chronic diastolic heart failure (HCC) (Primary Dx) 09/29/2018 Orders Only Cardiology Clary Martins, sound equipment mechanic Results (BMP 09/22/18) 09/27/2018 Documentation Cardiology from Last 3 Months Immunizations Name Administration Dates Next Due Pneumococcal Vaccine 02/15/2018 (), 02/14/2018 (Deferred: - pt febrile (23-Ninfa Adult) within last 24 hours.) Family History Medical [...] Cigarettes 2 10 Smokeless Tobacco: Never Used Drinks/Week oz/Week Comments Alcohol Use Seldom Yes Sex Assigned at Date Recorded Not on file Industry Job Start Date Occupation Not on file Not on file Not on file Travel End Travel History Travel Start No recent travel history available. Last Filed Vital Signs Reading Time Taken Comments Vital Sign 105/51 11/30/2018 9:34 AM CDT Blood Pressure 60 11/30/2018 9:33 AM CDT Pulse 36.4 C (97.6 F) 11/10/2018 3:14 PM CDT Temperature 20 11/10/2018 3:14 PM CDT Respiratory Rate 100% 11/30/2018 9:33 AM CDT Oxygen Saturation - - Inhaled Oxygen Concentration 86.2 kg (190 lb) 11/30/2018 9:13 AM CDT Weight 162.6 cm (5' 4") 11/30/2018 9:13 AM CDT Height 32.61 11/30/2018 9:13 AM CDT Body Mass Index Plan of Treatment Health Maintenance Due Date [...] / Lot Implanted Type Area Manufactur er [id number] / [id number] / [id number] Plate Acutie Sternal Closure - N/A: Sternum ACT [id number] INNOVATION Implanted: Qty: 2 on 02/16/2018 by Lance Conte MD at [facility] [id number] / [id number] / [id number] Plate Acutie Sternal Closure - N/A: Sternum ACT [id number] INNOVATION Implanted: Qty: 1 on 02/16/2018 by Lance Conte MD at [facility] Procedures Comments Procedure Name Priority Date/Time Associated Diagnosis MAGNESIUM Routine 12/01/2018 Chronic diastolic heart failure (HCC) DIGOXIN LEVEL Routine 12/01/2018 Chronic diastolic heart failure (HCC) COMPREHENSIVE METABOLIC Routine 12/01/2018 Chronic diastolic heart PANEL failure (HCC) TSH WITH FREE T4 REFLEX Routine 12/01/2018 Chronic diastolic heart failure (HCC) CBC Routine 12/01/2018 Chronic diastolic heart failure (HCC) BNP (B-TYPE NATRIURETIC Routine 12/01/2018 Heart disease PEPTI) Chronic diastolic heart failure (HCC) COMPREHENSIVE METABOLIC Routine 11/09/2018 PANEL BASIC METABOLIC PANEL Routine 11/03/2018 Chronic diastolic heart failure (HCC) MAGNESIUM Routine 11/02/2018 Chronic diastolic heart failure (HCC) CBC Routine 11/01/2018 Chronic diastolic heart failure (HCC) CBC AND DIFF STAT 10/29/2018 Chronic diastolic [...] METABOLIC Routine 09/27/2018 PANEL CBC Routine 09/27/2018 from Last 3 Months Results * TSH WITH FREE T4 REFLEX (12/01/2018) TSH Thyroid 12.31 (H) 0.35 - 4.94 [facility] Screen T4-Free 0.84 [facility] Specimen Blood - Blood Performing Organization Address City/State/Zipcode Phone Number [facility] [address] [place] [address] * CBC (12/01/2018) Only the most recent of 4 results within the time period is included. White Blood 3.2 (L) 4.3 - 11.0 [facility] Cells RBC 2.71 (L) 4.35 - 5.85 [facility] Hemoglobin 7.9 (L) 11.5 - 16.0 [facility] Hematocrit 24 (L) 35 - 52 [facility] MCV 90 [facility] MCH 29 [facility] MCHC 33 [facility] Platelet Count 129 (L) 130 - 400 [facility] MPV 9.9 [facility] RDW 18.6 (H) 10.0 - 14.5 [facility] Specimen Blood - Blood Performing Organization Address City/[facility]/Zipcode Phone Number [facility] [address] [place] [address] * BNP (B-TYPE NATRIURETIC PEPTI) (12/01/2018) Only the most recent of 2 results within the time period is included. B Type 388.0 (H) <100.0 [facility] Natriuretic Peptide BNP NT pro [facility] Specimen Blood - Blood Narrative Performed At Performing Organization Address City/[facility] Phone Number [facility] [address] [place] [address] * MAGNESIUM (12/01/2018) Only the most recent of 2 results within the time period is included. Magnesium 2.3 [facility] Specimen Blood - Blood Performing Organization Address [facility] Phone Number [facility] [address] [place] [address] * DIGOXIN LEVEL (12/01/2018) Digoxin 0.41 (L) 0.80 - 2.00 [facility] Specimen Blood - Blood Performing Organization Address [facility] Phone Number [facility] [address] [place] [address] * COMPREHENSIVE METABOLIC PANEL (12/01/2018) Only the most recent of 4 results within the time period is included. Sodium 136 [facility] Potassium 4.4 [facility] Chloride 102 [facility] CO2 24 [facility] Blood Urea 27 (H) 7 - 18 [facility] Nitrogen Creatinine 2.66 (H) 0.60 - 1.30 [facility] Glucose 163 (H) 70 - 105 [facility] Calcium 9.5 [facility] Total Protein 6.8 [facility] Total Bilirubin 0.7 [facility] Albumin 3.4 [facility] Alk Phosphatase 55 [facility] AST (SGOT) 20 [facility] ALT (SGPT) 10 [facility] eGFR Non [facility] eGFR [facility] Iranian Anion Gap 10 [facility] BUN/Creatinine 10 [facility] Ratio Specimen Blood - Blood Performing Organization Address City/State/Zipcode Phone Number [facility] [address] [place] [address] * BASIC METABOLIC PANEL (11/03/2018) Only the most recent of 4 results within the time period is included. Pathologist [facility] Sodium 136 135 - 145 [facility] Potassium 3.8 3.6 - 5.0 [facility] Chloride 102 98 - 107 [facility] CO2 19 (L) 21 - 32 [facility] Blood Urea 36 (H) 7 - 18 [facility] Nitrogen Creatinine 2.81 (H) 0.60 - 1.30 [facility] Glucose 143 (H) 70 - 105 [facility] Calcium 8.6 8.5 - 10.1 [facility] eGFR Non 17 [facility] eGFR [facility] Iranian Anion Gap 15 (H) 5 - 14 [facility] Specimen Blood - Blood Narrative Performed At Performing Organization Address City/[facility]/Zipcode Phone Number [facility] [address] [place] [address] * CBC AND DIFF (10/29/2018 12:23 PM CDT) Only the most recent of 2 results within the time period is included. Pathologist [facility] White Blood 7.2 4.5 - 11.0 K/UL [...] Phone Number [facility]IN [facility] [address] [place] [address] from Last 3 Months Insurance Type Payer Benefit Subscriber ID Effective Phone Address Plan / Dates Group Medicare MEDICARE MEDICARE xxxxxxxxxxx 2018-P PART A AND resent B Advance Directives Patient Supervisor Floor Assembly Explanation Type Date Recorded ` Advance 02/16/2018 9:31 AM Directive/DPOA Date Inactivated Comments Code Status Date Activated [...]
--- OUTSIDE RECORDS SUMMARY | 2018-12-27 16:02 | XMS REPORT | Encounter Summary ---
Author Author [facility] Organization [facility] Address Unknown Phone Unavailable Care Team Providers Care Plywood Layup Line Core Feeder Name Role Phone Carla Wilson MD PCP Naima Field MD Unavailable Winnie Jorge MD Unavailable Emiliano Rodriguez APRN,LOOP TACKER-C 7 Reason for Visit * Reason Comments Lab Request Encounter Details Care Team Description Date Type Department Clary Martins RN Lab Request 12/09/[address] [facility] [address] [facility] [place] [address] Social History Date Tobacco Use Types Packs/Day [...] Status Date of Assessment Functional Status Response 11/30/2018 Does the patient have a hearing impairment: No 11/30/2018 Does the patient have a visual impairment: No 11/30/2018 Does the patient have impaired ambulation: No 11/30/2018 Does the patient have an activity of daily living No (ADL) impairment: 11/30/2018 Does the patient have an instrumental activity of No daily living (IADL) impairment: Date of Assessment Cognitive Status Response 11/30/2018 Does the patient have a cognitive impairment: No documented as of this encounter Miscellaneous Notes * Telephone Encounter - Clary Martins RN - 12/10/2018 12:27 PM CDT Spoke with patient on the phone. No need for new orders at this time. Will revie w with Dr. Sneed on if standing BMP is needed. * Telephone Encounter - Oliverio Mcneil LPN - 12/10/2018 11:48 AM CDT Pt called asking if Dr. Sneed needed labs and states that the lab did not have any orders. Pt states she will be back Thursday for labs if needed. * Telephone Encounter - Clary Martins RN - 12/09/2018 8:51 AM CDT Requested labs be sent to us documented in this encounter Plan of Treatment Not on filedocumented as of this encounter Visit Diagnoses Not on filedocumented in this encounter
--- OUTSIDE RECORDS SUMMARY | 2018-12-27 16:03 | XMS REPORT | Encounter Summary ---
Author Author [facility] Organization [facility] Address Unknown Phone Unavailable Care Team Providers Care Jewelry Designer Name Role Phone Carla Wilson MD PCP Naima Field MD Unavailable Winnie Jorge MD Unavailable Emiliano Marin APRN,PATROL COMMUNITY SERVICE OFFICER-C 7 Reason for Visit * Reason Comments Lab Results Encounter Details Care Team Description Date Type Department Clary Martins RN Lab Results 11/03/2018 Documentation [facility] [address] [place] [address] Social History Date Tobacco Use Types Packs/Day [...] Progress Notes * Clary Martins RN - 11/03/2018 2:37 PM CDT Emiliano Marin APRN,PATROL COMMUNITY SERVICE OFFICER-C Clary Martins, RN Hi I will not address these labs since she is currently hospitalized in [place]; I am sure that they have already addressed this. Recieved pt's weekly BMP. Results sent to Emiliano marin APRN for review, pt curr ently hospitalized in [place]. Will defer to hospital staff for update labs/me d changes. documented in this encounter Plan of Treatment Not on filedocumented as of this encounter Visit Diagnoses Not on filedocumented in this encounter
--- OUTSIDE RECORDS SUMMARY | 2018-12-27 16:03 | XMS REPORT | Encounter Summary ---
Author Author [facility] Organization [facility] Address Unknown Phone Unavailable Care Team Providers Care Lay Up Operator Name Role Phone Carla Wilson MD PCP Naima Field MD Unavailable Winnie Jorge MD Unavailable Emiliano Rodriguez APRN,CHIEF INFORMATION SECURITY OFFICER-C 7 Reason for Visit * Reason Comments Labs Only Encounter Details Care Team Description Date Type Department Janell Del Cid Labs Only 11/24/2018 Documentation [facility] [id number] [place] [address] Social History Date Tobacco Use Types Packs/Day [...]
--- OUTSIDE RECORDS SUMMARY | 2018-12-27 16:03 | XMS REPORT | Encounter Summary ---
Author Author [facility] Organization [facility] Address Unknown Phone Unavailable Care Team Providers Care Home Health Nurse Name Role Phone Carla Wilson MD PCP Naima Field MD Unavailable Winnie Jorge MD Unavailable Emiliano Rodriguez APRN,ELEVATOR OPERATOR SERVICE-C 7 Reason for Visit * Reason Comments Follow-up Phone Call Encounter Details Care Team Description Date Type Department Clary Martins RN Follow-up Phone Call 11/05/2018 Telephone [facility] [address] [facility] [place] [address] Social History Date Tobacco Use [...] Telephone Encounter - Clary Martins RN - 11/05/2018 11:52 AM CDT Recieved call from Jose pt's spouse asking for return call. He wanted to make s ure we knew she was in the hospital. Updated him on f/u appointments. Called patient and updated her on appointments. Appointment reminders emailed to patient. documented in this encounter Plan of Treatment Not on filedocumented as of this encounter Visit Diagnoses Not on filedocumented in this encounter
--- OUTSIDE RECORDS SUMMARY | 2018-12-27 16:03 | XMS REPORT | Encounter Summary ---
Author Author [facility] Organization [facility] Address Unknown Phone Unavailable Care Team Providers Care Hadoop Consultant Name Role Phone Carla Wilson MD PCP Naima Field MD Unavailable Winnie Jorge MD Unavailable Emiliano Rodriguez APRN,DEHAIRER-C 7 Encounter Details Care Team Description Date Type Department Rina Ruano MA 12/02/2018 Documentation [facility] [id number] [place], [place] [id number] Social History Date Tobacco Use Types Packs/Day [...] Diagnosis TSH WITH FREE T4 REFLEX Routine 12/01/2018 Chronic diastolic heart failure (HCC) CBC Routine 12/01/2018 Chronic diastolic heart failure (HCC) BNP (B-TYPE NATRIURETIC Routine 12/01/2018 Heart disease PEPTI) Chronic diastolic heart failure (HCC) MAGNESIUM Routine 12/01/2018 Chronic diastolic heart failure (HCC) DIGOXIN LEVEL Routine 12/01/2018 Chronic diastolic heart failure (HCC) COMPREHENSIVE METABOLIC Routine 12/01/2018 Chronic diastolic heart PANEL failure (HCC) documented in this encounter Results * MAGNESIUM (12/01/2018) Magnesium 2.3 [facility] Specimen Blood - Blood Performing Organization Address [facility] Phone Number [facility] [address] [place] [address] * DIGOXIN LEVEL (12/01/2018) Digoxin 0.41 (L) 0.80 - 2.00 [facility] Specimen Blood - Blood Performing Organization Address [facility] Phone Number [facility] [address] [place] [phone] * COMPREHENSIVE METABOLIC PANEL (12/01/2018) Sodium 136 [facility] Potassium 4.4 [...] [facility] eGFR [facility] Somali Anion Gap 10 [facility] BUN/Creatinine 10 [facility] Ratio Specimen Blood - Blood Performing Organization Address [facility] Phone Number [facility] [address] [place] [address] * TSH WITH FREE T4 REFLEX (12/01/2018) TSH Thyroid 12.31 (H) 0.35 - 4.94 [facility] Screen T4-Free 0.84 [facility] Specimen Blood - Blood Performing Organization Address City/[facility]/Zipcode Phone Number [facility] [address] [place] [address] * CBC (12/01/2018) White Blood 3.2 (L) 4.3 - 11.0 [...] Specimen Blood - Blood Performing Organization Address [facility] Cent[facility]ode Phone Number [facility] [address] [place] [address] * BNP (B-TYPE NATRIURETIC PEPTI) (12/01/2018) Pathologist [facility] B Type 388.0 (H) <100.0 [facility] Natriuretic Peptide BNP NT pro [facility] Specimen Blood - Blood Narrative Performed At Performing Organization Address City/[facility] Cent[facility] Phone Number [facility] [address] [place] [address] documented in this encounter Visit Diagnoses Diagnosis Heart disease Heart disease, unspecified Chronic diastolic heart failure (HCC) Chronic diastolic heart failure documented in this encounter
--- OUTSIDE RECORDS SUMMARY | 2018-12-27 16:03 | XMS REPORT | Encounter Summary ---
Author Author [facility] Organization [facility] Address Unknown Phone Unavailable Care Team Providers Care Civil Engineering Director Name Role Phone Carla Wilson MD PCP Naima Field MD Unavailable Winnie Jorge MD Unavailable Emiliano Rodriguez APRN,ROLLER-C 7 Reason for Visit * Reason Comments Labs Only Encounter Details Care Team Description Date Type Department Lula, Leslee Labs Only 11/17/2018 Documentation [facility] [id number] [place] [address] Social History Date Tobacco Use Types Packs/Day [...] Comments Procedure Name Priority Date/Time Associated Diagnosis COMPREHENSIVE METABOLIC Routine 11/09/2018 PANEL documented in this encounter Results * COMPREHENSIVE METABOLIC PANEL (11/09/2018) Sodium 139 [facility] Potassium 4.7 [facility] Chloride 106 [facility] CO2 23 [facility] Blood Urea 22 (H) 7 - 18 [facility] Creatinine 1.63 (H) 0.6 - 1.3 [facility] Glucose 121 (H) 70 - 105 [facility] Calcium 9.3 [facility] Total Protein 7.1 [facility] Total Bilirubin 0.5 [facility] Albumin 3.4 [facility] Alk Phosphatase 50 [facility] AST (SGOT) 24 [facility] ALT (SGPT) 10 [facility] eGFR Non 32 [facility] Estonian eGFR OTHER OUTSIDE [place]ian [facility] Anion Gap 10 [facility] Specimen Blood - Blood Narrative Performed At Performing Organization Address City/State/Zipcode Phone Number [facility] documented in this encounter Visit Diagnoses Not on filedocumented in this encounter
--- OUTSIDE RECORDS SUMMARY | 2018-12-27 16:03 | XMS REPORT | Encounter Summary ---
Author Author [facility] Organization [facility] Address Unknown Phone Unavailable Care Team Providers Care Laborer Prestressed Concrete Name Role Phone Carla Wilson MD PCP Naima Field MD Unavailable Winnie Jorge MD Unavailable Emiliano Rodriguez APRN,WOOD BUCKER-C 7 Reason for Visit * Reason Comments Follow Up lab results, metoprolol dose change Encounter Details Care Team Description Date Type Department Oliverio Mcneil LPN Follow Up (lab results, metoprolol dose change ) 12/02/2018 Telephone [facility] [address] [address] Social History Date Tobacco Use Types [...] Telephone Encounter - Clary Martins RN - 12/03/2018 2:39 PM CDT Reviewed labs and updates with Dr. Sneed. No medication changes at this t noel, keep taking decreased dose of metoprolol. TSH elevated, will fax lab results to PCP for follow up. Pt will need to call t o schedule OV with PCP. Will get labs next week from [facility]. Pt to call with any questions/concerns . * Telephone Encounter - Oliverio Mcneil LPN - 12/02/2018 4:15 PM CDT Pt called asking about lab results, called to inform they have been reciveved an d will be reviewed by Dr. Sneed tomorrow. Also assessed due to metoprolol being decreased form 37.5 mg BID to 25 mg BID. Pt reports she has had some blee ding but did have a pint og blood infused this week. Pt does not report any othe r symptoms related to decrease in metoprolol. documented in this encounter Plan of Treatment Not on filedocumented as of this encounter Visit Diagnoses Not on filedocumented in this encounter
--- OUTSIDE RECORDS SUMMARY | 2018-12-27 16:03 | XMS REPORT | Encounter Summary ---
Author [facility] Address Unknown Phone Unavailable Care Team Providers Care Residential Carpet Installer Name Role Phone Carla Wilson MD PCP Naima Field MD Unavailable Winnie Jorge MD Unavailable Emiliano Rodriguez APRN,CAR MECHANIC-C 7 Reason for Visit * Reason Comments Other Gastrointestinal bleeding * Consult, Test & Treat (Urgent) Referred By Contact Referred To Contact Status Reason Specialty Diagnoses / Procedures Emiliano Rodriguez APRN,CAR MECHANIC-C [address] [facility] X[address] [place] [address] Mark Boston MD [address] Ortho[facility] Pavilion [address]vl [address] [place] [address] No Auth Needed Specialty Services Gastroenterology Diagnoses Required Chronic gastrointestinal bleeding Encounter Details Care Team Description Date Type Department Antolin Erazo Chronic blood loss anemia (Primary Dx) 11/10/2018 Office Visit [facility] [address] [place] [address] Social History Date Tobacco Use Types [...] of this encounter Last Filed Vital Signs Reading Time Taken Comments Vital Sign 114/44 11/10/2018 3:14 PM CDT Blood Pressure 52 11/10/2018 3:14 PM CDT Pulse 36.4 C (97.6 F) 11/10/2018 3:14 PM CDT Temperature 20 11/10/2018 3:14 PM CDT Respiratory Rate - - Oxygen Saturation - - Inhaled Oxygen Concentration 88 kg (194 lb) 11/10/2018 3:14 PM CDT Weight 162.6 cm (5' 4") 11/10/2018 3:14 PM CDT per pt Height 33.3 11/10/2018 3:14 PM CDT Body Mass Index documented in this encounter Functional Status Date [...] * Patient Instructions* Fanny Pastrana RN - 11/10/2018 3:00 PM CDT Please call THOMPSON Escob[address] Dr[address]s nurse at [phone] if you have any qu estions or concerns. General Instructions: To have a medication refilled: Please use the [employer] Refill request or con tact your pharmacy directly to request medication refills. Please allow 72 [address] m [address] [facility] Lab is on the 1st floor. It is open from 7 am-6pm Tu -Thursday and 6:30am-7pm on Mondays, and 7 am - Noon on Saturdays [facility] is located on the 2nd floor and is open 8 am-5 pm Thursday-Thursday [facility] lab is located next to the check out desk and is open from 8 A M to 4:45 PM Thursday through Thursday. Radiology is on the 2nd floor of the Medical Office Building and the 2nd [facility]. Radiology Scheduling can be reached at To Schedule office visits: Call [phone] select option 1. For procedure scheduling questions at the [facility] se call ; for a procedure at [facility] please call . To receive appointment reminders on your cell phone: Make sure we have your c [email or web address] phone number, and Text [facility] to [phone]. Support for many chronic illnesses is available through [facility]: [email or web address] or [phone]. For urgent questions on nights, weekends or holidays, call the Motor Vehicle Lecturer at , and ask for the doctor concrete inspector for Gastroenterology.Call [phone] for a ny emergencies. documented in this encounter Progress Notes * Antolin Erazo - 11/10/2018 3:00 PM CDT Date of Service: 11/10/2018 Subjective: Deborah Fields is a 63 y.o. female. She is here for f/u appointment, because her tumbler tender (Dr. Sneed) did not want her to go unseen by GI doctor (her next appointment with Dr. Diana is in February). She has a history of morbid obesity (lost 40 kg in 1 year), compensated cryptogenic cirrhosis (meld score mostly driven by creatinine), CKD, HTN, HLD, IDDM2, CAD with prior PCI and s/p 4 vCABG 02/2018, HFrEF 2/2 ischemic CM EF 50, Afib s/p MAZE, off AC due to chronic blood loss anemia s/p EGD/colon/VCE x 2. History of Present Illness She reports having continuing to require at least 1 unit of blood on a weekly ba sis and occasional IV iron infusions, she continues to see melenic stools and in termittent bright red blood per rectum which she contributes to hemorrhoids. Sh e has 2-3 bowel movements on a daily basis. She denies any vomiting of blood or coffee-ground emesis. She does report epigastric discomfort and nausea with pe riods of not being able to eat and hold down any food. She reports relatively g ood response to Zofran. She has lost about 40 kg within the last year due to her loss of appetite and nausea. Her most recent endoscopies were in August performed by Dr. Diana after she was seen by her in clinic in June. During those endoscopies she found small eso phageal varices which did not require banding, mild portal hypertension and GAVE which was very friable and no APC was performed at that time. She also had a c olonoscopy performed in August which showed congestive colopathy and 4 tubular ad enomas (3 to 8 mm in the right and left-sided colon). She reports a recent UTI last week with development of confusion and sepsis whic h resolved with IV antibiotics, for which she was admitted for 4 days last week. She denies any confusion prior to her infection and has not noticed anything s waylon, she is not on any lactulose or rifaximin. Review of Systems Constitutional: Positive for activity change, appetite change, chills, fatigue a nd unexpected weight change. HENT: Positive for sneezing. Respiratory: Positive for shortness of breath. Endocrine: Positive for cold intolerance. Musculoskeletal: Positive for arthralgias, back pain, gait problem, joint swelli ng, myalgias and neck pain. Allergic/Immunologic: Positive for environmental allergies. Neurological: Positive for dizziness, weakness and headaches. Hematological: Bruises/bleeds easily. All other systems reviewed and are negative. Objective: bumetanide (BUMEX) 1 mg tablet Take one [...] tablet Take 1 mg by mouth daily. benmeduh-qpftpungl-X-manganese 500-400-2-0.33 mg cap Take 500 mg by [...] 6 hours as nee ded for Pain. Vitals: 11/10/18 1514 BP: 114/44 Pulse: 52 Resp: 20 Temp: 36.4 C (97.6 F) TempSrc: Oral Weight: 88 kg (194 lb) Height: 162.6 cm (64") Body mass index is 33.3 kg/m. Physical Exam Constitutional: She is oriented to person, place, and time. She appears well-dev eloped and well-nourished. No distress. HENT: Head: Normocephalic. Mouth/Throat: Oropharynx is clear and moist. Eyes: Pupils are equal, round, and reactive to light. Conjunctivae and EOM are n ormal. No scleral icterus. Neck: Normal range of motion. Cardiovascular: Normal rate, regular rhythm and normal heart sounds. Exam reveal s no gallop and no friction rub. No murmur heard. Pulmonary/Chest: Effort normal and breath sounds normal. She has no wheezes. She has no rales. Abdominal: Soft. Bowel sounds are normal. She exhibits no distension and no mass . There is no tenderness. There is no rebound and no guarding. Musculoskeletal: Normal range of motion. She exhibits no edema or tenderness. Lymphadenopathy: She has no cervical adenopathy. Neurological: She is alert and oriented to person, place, and time. No cranial n erve deficit. Skin: Skin is warm and dry. She is not diaphoretic. No erythema. Psychiatric: She has a normal mood and affect. Assessment and Plan: Deborah Fields is a 63 y.o. female. She is here for f/u appointment, because her tumbler tender (Dr. Sneed) did not want her to go unseen by GI doctor (her next appointment with Dr. Diana is in February). She has a history of morbid obesity (lost 40 kg in 1 year), compensated cryptogenic cirrhosis (meld score mostly driven by creatinine), CKD, HTN, HLD, IDDM2, CAD with prior PCI and s/p 4 x CABG 02/2018, HFrEF 2/2 ischemic CM EF 50, Afib s/p MAZE, off AC due to chronic blood loss anemia s/p EGD/colon/VCE x 2. # Blood loss anemia, most likely due to GAVE and congestive colopathy with ongoi ng melena and occasional hematochezia # Requiring 1+ unit PRBC per week, receiving occasional IV iron infusions # Compensated cirrhosis with low meld (mainly driven by CKD) # Recent EGD performed without being able to perform APC, mild portal hypertensi on and small esophageal varices were found # Recent colonoscopy showing congestive colopathy and 4 TAs (repeat colonoscopy in 3 years based on risk/benefit) Unfortunately at this point there is not much that we can offer her from a GI st andpoint. She has been off of any possible anticoagulation. We recommend to co ntinue with the scheduled lab work and as needed blood transfusions. She is a very well educated patient and is aware of the difficult situation that she is in. We will discuss this case again with our pathology colleagues and see if there i s anything that we can offer. The patient was seen and the plan was discussed with Dr. Covington. Antolin Erazo MD Gastroenterology & Hepatology Fellow Pager [phone] ATTESTATION I personally interviewed and examined the patient. I performed the dempsey portions of the E/M visit, discussed case with fellow and concur with fellow documentatio n of history, physical exam, assessment, and treatment plan unless otherwise not ed. We explained the diagnosis and management plan in detail. No barrier to educatio n was noted. she understood me well and repeated her understanding. I answered a ll her questions and concerns. Total time spent with the patient face to face: 25 min. More than half of the ti me was spent on counseling the patient, see the above. Dannielle Covington MD This note was in part completed with [employer], a voice to text dictation system. S ome errors may have occured and persist despite my best efforts to edit this doc ument to eliminate dictation/translationrelated errors.If you have questio ns/concerns, please contact me for clarification Staff name: Dannielle Covington MD Date: 11/11/2018 documented in this encounter Plan of Treatment Order Schedule Name Type Priority Associated Diagnoses Ordered: 11/01/2018 AMB REFERRAL TO Outpatient Routine Chronic gastrointestinal GASTROENTEROLOGY Referral bleeding documented as of this encounter Visit Diagnoses Diagnosis Chronic blood loss anemia - Primary Iron deficiency anemia secondary to blood loss (chronic) documented in this encounter
--- OUTSIDE RECORDS SUMMARY | 2018-12-27 16:03 | XMS REPORT | Encounter Summary ---
Author Author [facility] Organization [facility] Address Unknown Phone Unavailable Care Team Providers Care Color Straining Bag Washer Name Role Phone Carla Wilson MD PCP Naima Field MD Unavailable Winnie Jorge MD Unavailable Emiliano Rodriguez APRN,PERFORMANCE INSTRUCTOR-C 7 Reason for Visit * Reason Comments Hospitalized Patient pt lm she is in ICU in [place] Encounter Details Care Team Description Date Type Department Estrella Faria LPN Hospitalized Patient (pt lm she is in ICU in [place]) 11/03/2018 Telephone The [facility] [address] [address] Social History Date Tobacco Use Types Packs/Day [...] encounter Miscellaneous Notes * Telephone Encounter - Estrella Faria LPN - 11/03/2018 1:44 PM CDT Pt lm she is in the ICU in [place]. You can reach her on her cell phone if ne eded. Will route to CM RN documented in this encounter Plan of Treatment Not on filedocumented as of this encounter Visit Diagnoses Not on filedocumented in this encounter
--- OUTSIDE RECORDS SUMMARY | 2018-12-27 16:03 | XMS REPORT | Encounter Summary ---
Author Author [facility] Organization [facility] Address Unknown Phone Unavailable Care Team Providers Care Inductor Tester Name Role Phone Carla Wilson MD PCP Naima Field MD Unavailable Winnie Jorge MD Unavailable Emiliano Rodriguez APRN,MARGARINE CHURN OPERATOR-C 7 Reason for Visit * Reason Comments Weight Gain Encounter Details Care Team Description Date Type Department Oliverio Mcneil LPN Weight Gain 11/12/[address] [facility] [address] [place] [address] Social History Date Tobacco Use Types Packs/Day [...] Miscellaneous Notes * Telephone Encounter - Estrella Chauhan LPN - 11/18/2018 12:54 PM CDT Call received from pt with update on weights and symptoms. Pt reports the follow ing: Weight down 5.4 lbs since 11/14/18 at 188.8 Decreased BLE edema and abdominal bloating SOA improved but her Sp02 did drop to 84 & 86% last night on RA, resolved with O2 per NC at 2L, no cough Decrease in dizziness but pt states she had one unit of blood transfused on and Thursday B/P today 146/66 HR 66 Reviewed cardiac meds, advised pt to resume regular dosing Advised pt to continue monitoring daily weights and symptoms. Notify us for weig ht gains >3 lbs overnight or 5 lbs in a week, or worsening sx. If CP/difficulty breathing occur to call 911. Next OV 11/30/[address] Sneed. * Telephone Encounter - Clary Martins RN - 11/16/2018 1:26 PM CDT Felisa Sneed MD Voye, Melanie, RN Cc: Clary Martins RN Caller: Unspecified (4 days ago, 12:25 PM) Can take Bumex twice a day for two days then revert back to normal dosing. Recieved weekly BMP labs. Called patient and let her know okay to take extra Bum ex next two days if weight is still up. BMP to be redrawn next week (standing). Will call pt for f/u next week. * Telephone Encounter - Clary Martins RN - 11/15/2018 5:28 PM CDT Called to get update from patient. Labs drawn today, will result tonight and I w ill request them to be faxed to us on Thursday. Will route call for review at arben t time. * Telephone Encounter - Oliverio Mcneil LPN - 11/15/2018 3:01 PM CDT Pt called to update on her symptoms and weight today: Patient Status patient is an established patient with [facility]. Signs and Symptoms Dizzy with movement, states this has worsened since Thursday Little SOA nausea Swelling in legs and abdomen same as Thursday Medication Review bumex 2 mg thu and Thursday Pt states she was told to take an extra bumex whenever she has blood taken so sh e plans to take an extra dose today and tomorrow. Recent Salt Intake "not eating really" Drinking under 64 oz daily Date Weight B/P Pulse 11/15 190.2 107/47 65 6/11/13 Date Weight B/P Pulse 11/12 191.6 127/52 58 11/11/10/30 183 * Telephone Encounter - Pat Combs RN - 11/12/2018 5:31 PM CDT Reviewed with [employer]. Orders for patient to increase her lasix to 2mg once a day today, Thursday and Thursday. Call us on Thursday with an update on her weight. Called and reviewed instructions with patient. She says they stopped her Bumex in the hospital because of her kidneys. She repeated the instructions back to camila navarro and will call us on Thursday with an update. She states she also has labs drawn on Thursday. No other questions or concerns at this time. * Telephone Encounter - Oliverio Mcneil LPN - 11/12/2018 12:48 PM CDT Pt called reporting 6 lbs weight gain. Pt states she was admitted last week with a bladder infection and she was septic. Pt states she was on IVs but not additi onal diuretics. Called to assess: Patient Status patient is an established patient with [facility]. Signs and Symptoms little SOA Some swelling in abdomen Dizziness with movement for past 4 days Medication Review Pt says she was not given bumex while admitted but takes it now Recent Salt Intake Patient is drinking under 64 oz of fluid daily Date Weight B/P Pulse 11/12 191.6 127/52 58 11/11 183 Pt was discharged form via rory on 11/06. Records request sent. documented in this encounter Plan of Treatment Not on filedocumented as of this encounter Visit Diagnoses Not on filedocumented in this encounter
--- OUTSIDE RECORDS SUMMARY | 2018-12-27 16:03 | XMS REPORT | Encounter Summary ---
Author Author [facility] Organization [facility] Address Unknown Phone Unavailable Care Team Providers Care Esl Professor Name Role Phone Carla Wilson MD PCP Naima Field MD Unavailable Winnie Jorge MD Unavailable Emiliano Rodriguez APRN,ENVIRONMENTAL PROPERTY ASSESSOR-C 7 Reason for Referral * Consult, Test & Treat (Routine) Referred By Contact Referred To Contact Status Reason Specialty Diagnoses / Procedures Felisa Sneed MD [address] [place] [phone] New Request Procedures REQUEST FOR CARDIOLOGY APPOINTMENT * Consult, Test & Treat (Routine) Referred By Contact Referred To Contact Status Reason Specialty Diagnoses / Procedures Felisa Sneed MD [address] [place] [phone] Pending Review Procedures REQUEST FOR CARDIOLOGY APPOINTMENT Reason for Visit * Reason Comments Post-hospital Follow Up * Consult, Test & Treat (Routine) Referred By Contact Referred To Contact Status Reason Specialty Diagnoses / Procedures Felisa Sneed MD [address] [place] [id number] Pending Review Procedures REQUEST FOR CARDIOLOGY APPOINTMENT Encounter Details Care Team Description Date Type Department Felisa Sneed MD [address] [place] [address] [phone] Post-hospital Follow Up 11/30/2018 Office Visit [facility] [address] [facility] [place] [address] Social History Date Tobacco Use Types Packs/Day [...] Pressure 60 11/30/2018 9:33 AM CDT Pulse - - Temperature - - Respiratory Rate 100% 11/30/2018 9:33 AM CDT Oxygen Saturation - - Inhaled Oxygen Concentration 86.2 kg (190 lb) 11/30/2018 9:13 AM CDT Weight 162.6 cm (5' 4") 11/30/2018 9:13 AM CDT Height 32.61 11/30/2018 9:13 AM CDT Body Mass Index documented in this [...] * Patient Instructions* Rina Ruano MA - 11/30/2018 9:30 AM CDT Heart Failure Education Summary You have been [...] does not resolve with rest or nitroglycerin Don[place]ue, foamy mucus with cough and shortness of breath A continuous rapid or irregular heartbeat Passing out or fainting Stroke symptoms such as sudden numbness or weakness on one side of your face, arm, or leg or sudden confusion, trouble speaking or vision changes Heart Failure Medication: Decrease metop to 25 twice a day. Next - Thursday, Clary will fax order Return in 1 month to 6 weeks in [place] documented in this encounter Plan of Treatment Order Schedule Name Type Priority Associated Diagnoses Ordered: 11/30/2018 MYCHART BLOOD PRESSURE Procedures Routine Chronic diastolic heart FLOWSHEET failure (HCC) documented as of this encounter Results * CBC (12/01/2018) Pathologist [facility] White Blood 3.2 (L) 4.3 - 11.0 [...] - 400 [facility] MPV 9.9 MAIN LAB RDW 18.6 (H) 10.0 - 14.5 [facility] Specimen Blood - Blood Performing Organization Address [facility] Phone Number [facility] [address] [place] [address] * MAGNESIUM (12/01/2018) Pathologist [facility] Magnesium 2.3 MAIN LAB Specimen Blood - Blood Performing Organization Address City/[facility]/Zipcode Phone Number MAIN LAB [address] [place] [address] * BNP (B-TYPE NATRIURETIC PEPTI) (12/01/2018) Pathologist [facility] B Type 388.0 (H) <100.0 [facility] Natriuretic Peptide BNP NT pro [facility] Specimen Blood - Blood Narrative Performed At Performing Organization Address [facility]/Zipcode Phone Number MAIN LAB [address] [place] [address] * COMPREHENSIVE METABOLIC PANEL (12/01/2018) Sodium 136 [...] [facility] eGFR [facility] [place] Anion Gap 10 [facility] BUN/Creatinine 10 [facility] Ratio Specimen Blood - Blood Performing Organization Address City/[facility]/Zipcode Phone Number [facility] [address] [place] [address] * TSH WITH FREE T4 REFLEX (12/01/2018) TSH Thyroid 12.31 (H) 0.35 - 4.94 [facility] Screen T4-Free 0.84 [facility] Specimen Blood - Blood Performing Organization Address City/[facility]/Zipcode Phone Number [facility] [address] [place] [address] * DIGOXIN LEVEL (12/01/2018) Digoxin 0.41 (L) 0.80 - 2.00 [facility] Specimen Blood - Blood Performing Organization Address [facility] Phone Number [facility] [address] [place] [address] documented in this encounter Visit Diagnoses Diagnosis Chronic diastolic heart failure (HCC) - Primary Chronic diastolic heart failure Heart disease Heart disease, unspecified documented in this encounter
--- OUTSIDE RECORDS SUMMARY | 2018-12-27 16:04 | XMS REPORT | Encounter Summary ---
Author Author [facility] Organization [facility] Address Unknown Phone Unavailable Care Team Providers Care Project Consultant Name Role Phone Carla Wilson MD PCP Naima Field MD Unavailable Winnie Jorge MD Unavailable Emiliano Rodriguez APRN,CAR SALESMAN-C 7 Encounter Details Care Team Description Date Type Department Emiliano Rodriguez APRN,CAR SALESMAN-C [address] [address] [phone] 10/29/2018 Hospital [facility] [address] [address] Social History Date Tobacco Use Types Packs/Day [...] impairment: No documented as of this encounter Medications at Time of Discharge Start Date End Date Medication Sig Dispensed Refills 10/29/2018 bumetanide (BUMEX) 1 mg Take one 60 tablet 2 tablet tablet by mouth daily. cetirizine (ZYRTEC) 10 mg Take 10 mg by 0 tablet mouth every morning. 02/05/2017 clobetasol (TEMOVATE) Apply to 0 0.05 % topical cream affected area twice daily as needed 10/08/2018 digoxin (LANOXIN) 125 mcg Take one 90 tablet 1 tablet tablet by mouth every 48 hours. diphenhydrAMINE (BENADRYL Take 25 mg by 0 ALLERGY) 25 mg tablet mouth every 6 hours as needed for Sleep. folic acid (FOLVITE) 1 mg Take 1 mg by 0 tablet mouth daily. iyzkuikw-gqsvfqubd-A-doug Take 500 mg 0 anese 500-400-2-0.33 mg [...] mg by mouth magnesium) tablet twice daily. nitroglycerin (NITROSTAT) Place 0.4 mg [...] every 6 hours as needed for Pain. 07/06/2018 11/30/2018 metoprolol tartrate Take one 180 tablet 3 (LOPRESSOR) 37.5 mg tablet by tablet mouth twice daily. documented as of this encounter Plan of [...] City/State/Zipcode Phone Number [facility] [address] [place] [address] * BASIC METABOLIC PANEL (10/29/2018 12:23 PM [...] (L) >60 mL/min [facility] Comment: [place] The eGFR is not validated for use in drug dosing adjustments.Continue to use estimated creatinine clearance per dosing reference text.Please contact the Clinical Pharmacist for questions. eGFR 22 (L) >60 mL/min [facility] [place] Comment: The eGFR is not validated for use in drug dosing adjustments.Continue to use estimated creatinine clearance per dosing reference text.Please contact the Clinical Pharmacist for questions. Specimen Blood Performing Organization Address City/State/Zipcode Phone Number [facility] [address] [place] [address] documented in this encounter Visit Diagnoses Diagnosis Chronic diastolic heart failure (HCC) Chronic diastolic heart failure documented in this encounter
--- OUTSIDE RECORDS SUMMARY | 2018-12-27 16:04 | XMS REPORT | Encounter Summary ---
Author Author [facility] Organization [facility] Address Unknown Phone Unavailable Care Team Providers Care Quality System Manager Name Role Phone Carla Wilson MD PCP Naima Field MD Unavailable Winnie Jorge MD Unavailable Emiliano Rodriguez APRN,MANAGER MEDICAL-C 7 Reason for Visit * Reason Comments Labs Only Encounter Details Care Team Description Date Type Department Rina Ruano MA Labs Only 10/27/2018 Documentation [facility] [address] [place] [address] Social History Date Tobacco Use [...] * BNP (B-TYPE NATRIURETIC PEPTI) (10/25/2018) Pathologist [facility] B Type 363.2 (H) <100.0 OTHER OUTSIDE Natriuretic LAB Peptide BNP NT pro OTHER OUTSIDE LAB Specimen Blood - Blood Performing Organization Address City/State/Zipcode Phone Number OTHER OUTSIDE LAB * COMPREHENSIVE METABOLIC PANEL (10/25/2018) Pathologist [facility] Sodium 138 OTHER OUTSIDE LAB Potassium 4.5 [...] LAB eGFR Non 17 OTHER OUTSIDE LAB Indonesian eGFR OTHER OUTSIDE Indonesian LAB Anion Gap 9 OTHER OUTSIDE LAB Specimen Blood - Blood Performing Organization Address [facility] Phone Number OTHER OUTSIDE LAB * CBC AND DIFF (10/25/2018) Pathologist [facility] White Blood 5.4 OTHER OUTSIDE Cells LAB [...]
--- OUTSIDE RECORDS SUMMARY | 2018-12-27 16:04 | XMS REPORT | Encounter Summary ---
Author Author [facility] Organization [facility] Address Unknown Phone Unavailable Care Team Providers Care Hospice Massage Therapist Name Role Phone Carla Wilson MD PCP Naima Field MD Unavailable Winnie Jorge MD Unavailable Emiliano Rodriguez APRN,EXTRUSION BENDER-C 7 Reason for Visit * Reason Comments Follow Up Encounter Details Care Team Description Date Type Department Clary Martins RN Follow Up 11/03/2018 Telephone [facility] [address] [place] [address] Social History Date Tobacco Use Types Packs/Day [...] Telephone Encounter - Clary Martins RN - 11/03/2018 1:18 PM CDT called patient and left voicemail. Asked her to call back with update on how she was feeling. Thursday she wasn't feeling well/able to hold food down. Might need to make medication adjustments based on how she if feeling today. documented in this encounter Plan of Treatment Not on filedocumented as of this encounter Visit Diagnoses Not on filedocumented in this encounter
--- OUTSIDE RECORDS SUMMARY | 2018-12-27 16:04 | XMS REPORT | Encounter Summary ---
Author Author [facility] Organization [facility] Address Unknown Phone Unavailable Care Team Providers Care Exam Proctor Name Role Phone Carla Wilson MD PCP Naima Field MD Unavailable Winnie Jorge MD Unavailable Emiliano Rodriguez APRN,BELTING CUTTER-C 7 Reason for Visit * Reason Comments Lab Results Encounter Details Care Team Description Date Type Department Clary Martins RN Lab Results 10/13/[address] [facility] [address] [place] [address] Social History Date Tobacco Use Types Packs/Day [...]
--- OUTSIDE RECORDS SUMMARY | 2018-12-27 16:04 | XMS REPORT | Encounter Summary ---
Author Author [facility] Organization [facility] Address Unknown Phone Unavailable Care Team Providers Care Rn Renal Name Role Phone Carla Wilson MD PCP Naima Field MD Unavailable Winnie Jorge MD Unavailable Emiliano Rodriguez APRN,MOLD OPERATOR-C 7 Reason for Referral * Consult, Test & Treat (Urgent) Referred By Contact Referred To Contact Status Reason Specialty Diagnoses / Procedures Emiliano Rodriguez APRN,MOLD OPERATOR-C [address] [facility] [address] [place] [address] Mark Boston MD [address] Ortho/Med Pavilion [address] [place] [address] No Auth Needed Specialty Services Gastroenterology Diagnoses Required Chronic gastrointestinal bleeding Encounter Details Care Team Description Date Type Department Clary Martins RN Chronic gastrointestinal bleeding (Primary Dx) 11/01/2018 Orders Only [facility] [address] [place] [address] Social History Date Tobacco Use Types Packs/Day [...]
--- OUTSIDE RECORDS SUMMARY | 2018-12-27 16:04 | XMS REPORT | Encounter Summary ---
Author Author [facility] Organization [facility] Address Unknown Phone Unavailable Care Team Providers Care Manager Pet Name Role Phone Carla Wilson MD PCP Naima Field MD Unavailable Winnie Jorge MD Unavailable Emiliano Rodriguez APRN,GENERAL CLAIMS AGENT-C 7 Reason for Visit * Reason Comments Other GI referral Encounter Details Care Team Description Date Type Department Clary Martins RN Other (GI referral) 11/01/2018 Telephone [facility] [address] [facility] [address] [place] [address] Social History Date Tobacco Use [...]
--- OUTSIDE RECORDS SUMMARY | 2018-12-27 16:04 | XMS REPORT | Encounter Summary ---
Author Author [facility] Organization [facility] Address Unknown Phone Unavailable Care Team Providers Care Business Developer Name Role Phone Carla Wilson MD PCP Naima Field MD Unavailable Winnie Jorge MD Unavailable Emiliano Rodriguez APRN,NURSE CASE MANAGER-C 7 Reason for Visit * Reason Comments Labs Only Encounter Details Care Team Description Date Type Department Janell Del Cid Labs Only 11/03/2018 Documentation [facility] [id number] [place] [address] Social History Date Tobacco Use Types Packs/Day [...] Date/Time Associated Diagnosis BASIC METABOLIC PANEL Routine 11/03/2018 Chronic diastolic heart failure (HCC) MAGNESIUM Routine 11/02/2018 Chronic diastolic heart failure (HCC) CBC Routine 11/01/2018 Chronic diastolic heart failure (HCC) documented in this encounter Results * BASIC METABOLIC PANEL (11/03/2018) Sodium 136 135 - 145 [facility] MAIN [...] [facility] MAIN LAB eGFR [facility] Indonesian Anion Gap 15 (H) 5 - 14 [facility] Specimen Blood - Blood Narrative Performed At Performing Organization Address City/[facility] Phone Number MAIN LAB [address] [place] [address] * MAGNESIUM (11/02/2018) Magnesium 1.6 (L) 1.8 - 2.4 [facility] MAIN [facility] Specimen Blood - Blood Performing Organization Address [facility] Phone Number [facility] [address] [place] [address] * CBC (11/01/2018) White Blood 5.9 4.3 - 11 [facility] Cells RBC 2.70 (L) 4.35 - 5.85 [facility] Hemoglobin 8.3 (L) 11.5 - 16 [facility] Hematocrit 25 (L) 35 - 52 [facility] MCV 91 80 - 99 [facility] MCH 31 25 - 34 [facility] MCHC 34 32 - 36 [facility] Platelet Count 160 130 - 400 [facility] MPV 10.1 7.4 - 10.4 [facility] RDW 14.9 (H) 10 - 14.5 [facility] Specimen Blood - Blood Performing Organization Address [facility] Phone Number MAIN LAB [address] [place] [address] documented in this encounter Visit Diagnoses Diagnosis Chronic diastolic heart failure (HCC) Chronic diastolic heart failure documented in this encounter
--- OUTSIDE RECORDS SUMMARY | 2018-12-27 16:04 | XMS REPORT | Encounter Summary ---
Author Author [facility] Organization [facility] Address Unknown Phone Unavailable Care Team Providers Care Faculty Research Physician Name Role Phone Carla Wilson MD PCP Naima Field MD Unavailable Winnie Jorge MD Unavailable Emiliano Rodriguez APRN,[facility]-C 7 Reason for Visit * Reason Comments Cardiac Eval PAF; CAD; HLD; CHRONIC DIASTOLIC HEART FAILURE. Weight Loss Encounter Details Care Team Description Date Type Department Emiliano Rodriguez APRN,SALESPERSON [employer]OS [employer]GANS-C [address] [id number] Cardiac Eval (PAF; CAD; HLD; CHRONIC DIASTOLIC HEART FAILURE.); Weight Loss 10/29/[address] [facility] [address] [address] Social History Date Tobacco Use Types Packs/Day [...] Signs Reading Time Taken Comments Vital Sign 130/48 10/29/2018 10:27 AM CDT Blood Pressure 70 10/29/2018 10:27 AM CDT Pulse - - Temperature - - Respiratory Rate 97% 10/29/2018 10:27 AM CDT Oxygen Saturation - - Inhaled Oxygen Concentration 85.2 kg (187 lb 12.8 oz) 10/29/2018 10:27 AM CDT Weight 162.6 cm (5' 4") 10/29/2018 10:27 AM CDT Height 32.24 10/29/2018 10:27 AM CDT Body Mass Index documented in [...] Patient Instructions * Patient Instructions* Emiliano Rodriguez APRN,SALESPERSON [employer]OS [employer]-C - 10/29/2018 10:30 AM CDT Your fluid [...] Thank you for coming to [facility] Cardiology [facility]. Emiliano Rodriguez APRN Nurse Practitioner Tracie Stuart RN [phone] documented in this encounter Progress Notes * Emiliano Rodriguez APRN, FNP-C - 10/29/2018 10:30 AM CDT Date of Service: 10/29/2018 Deborah Fields is a 63 y.o. female. HPI Ms. Fields was seen today in heart failure clinic by Dr Sneed and myself for routine follow-up visit accompanied by her spouse. She was last seen in [facility] by Dr. Sneed on 10/08/18. At that [...] blood transfusions at her local facility in [place], [place]. She states so far for the [...] has her blood checked every Thursday in [place]; states i f her hemoglobin is less [...] until 02/17/19. She also follows with outside residential worker. She has had multiple colonoscopies and EGD [...] concerns or questions. Emiliano Rodriguez APRN Pager #[phone] Collaborating MD:JAYSHREE Current Medications (including today's revisions) [...] tablet Take 1 mg by mouth daily. inuljvtu-sfcblvopm-O-manganese 500-400-2-0.33 mg cap Take 500 mg by [...] BASIC METABOLIC PANEL (10/29/2018 12:23 PM CDT) [facility] Sodium 136 (L) 137 - 147 MMOL/L [...] (L) >60 mL/min [facility] MAIN [facility] Comment: Fijian The eGFR is not validated for use in drug dosing adjustments.Continue to use estimated creatinine clearance per dosing reference text.Please contact the Clinical Pharmacist for questions. eGFR 22 (L) >60 mL/min [facility] MAIN [facility] Fijian Comment: The eGFR is not validated for use in drug dosing adjustments.Continue to use estimated creatinine clearance per dosing reference text.Please contact the Clinical Pharmacist for questions. Specimen Blood Performing Organization Address City/State/Zipcode Phone Number [facility] MAIN [facility] [address] [place] [address] * CBC AND DIFF (10/29/2018 12:23 PM [...] City/State/Zipcode Phone Number [facility] MAIN [facility] [address] [place] [address] documented in this encounter Visit Diagnoses Diagnosis HFpEF - Primary Chronic diastolic heart failure CKD Chronic kidney disease, Stage IV (severe) GIB with anemia Hemorrhage of gastrointestinal tract, unspecified documented in this encounter
--- OUTSIDE RECORDS SUMMARY | 2018-12-27 16:05 | XMS REPORT | Encounter Summary ---
Author Author [facility] Organization [facility] Address Unknown Phone Unavailable Care Team Providers Care Deep Tissue Massage Therapist Name Role Phone Carla Wilson MD PCP Naima Field MD Unavailable Winnie Jorge MD Unavailable Encounter Details Care Team Description Date Type Department Emiliano Rodriguez APRN,LOCKSTITCH MACHINE OPERATOR-C [address] [facility] [address] [place], [place] [id number] Chronic diastolic heart failure (HCC) (Primary Dx) 09/29/2018 Orders Only [facility] [address] [facility] [address] [place] [address] Social History Date Tobacco Use Types Packs/Day [...] [facility] MAIN LAB eGFR [facility] MAIN LAB Togolese Anion Gap 7 5 - 14 [facility] MAIN [facility] Specimen Blood - Blood Narrative Performed At Performing Organization Address City/State/Zipcode Phone Number MAIN LAB [address] [place] [address] documented in this encounter Visit Diagnoses Diagnosis Chronic diastolic heart failure (HCC) - Primary Chronic diastolic heart failure documented in this encounter
--- OUTSIDE RECORDS SUMMARY | 2018-12-27 16:05 | XMS REPORT | Encounter Summary ---
Author Author [facility] Organization [facility] Address Unknown Phone Unavailable Care Team Providers Care Plant Director Name Role Phone Carla Wilson MD PCP Naima Field MD Unavailable Winnie Jorge MD Unavailable Emiliano Rodriguez APRN,MANAGER OF ADMINISTRATION-C 7 Reason for Visit * Reason Comments Lab Results Encounter Details Care Team Description Date Type Department Clary Martins, dry box operator Results 10/01/2018 Documentation [facility] [id number] [place] [address] Social History Date Tobacco Use Types Packs/Day [...] LAB eGFR Non 21 OTHER OUTSIDE LAB Czech eGFR OTHER OUTSIDE Czech LAB Anion Gap 10 OTHER OUTSIDE LAB Troponin-I 0.028 OTHER OUTSIDE LAB Digoxin 1.44 OTHER OUTSIDE LAB Specimen Blood - Blood Performing Organization Address City/[facility] Phone Number OTHER OUTSIDE LAB * CBC [...]
--- OUTSIDE RECORDS SUMMARY | 2018-12-27 16:05 | XMS REPORT | Encounter Summary ---
Author Author [facility] Organization [facility] Address Unknown Phone Unavailable Care Team Providers Care Livestock Farmworker Name Role Phone Carla Wilson MD PCP Naima Field MD Unavailable Winnie Jorge MD Unavailable Reason for Visit * Reason Comments Lab Results [facility] 09/22/18 Encounter Details Care Team Description Date Type Department Clary Martins RN Lab Results ([facility] 09/22/18) 09/27/2018 Documentation [facility] [address] [place] [address] Social History Date Tobacco Use Types Packs/Day [...] LAB eGFR Non 16 OTHER OUTSIDE LAB Zimbabwean eGFR OTHER OUTSIDE Zimbabwean LAB Anion Gap 6 OTHER OUTSIDE LAB Specimen Blood - Blood Performing Organization Address City/State/Zipcode Phone Number OTHER OUTSIDE LAB documented in this encounter Visit Diagnoses Not on filedocumented in this encounter
--- OUTSIDE RECORDS SUMMARY | 2018-12-27 16:05 | XMS REPORT | Encounter Summary ---
Author Author [facility] Organization [facility] Address Unknown Phone Unavailable Care Team Providers Care General Assignment Reporter Name Role Phone Carla Wilson MD PCP Naima Field MD Unavailable Winnie Jorge MD Unavailable Emiliano Rodriguez APRN,ACADEMIC AFFAIRS VICE PRESIDENT-C 7 Reason for Visit * Reason Comments Follow Up Medications Only Heart Failure Shortness of Breath Leg Swelling Encounter Details Care Team Description Date Type Department Emiliano Rodriguez APRN,ACADEMIC AFFAIRS VICE PRESIDENT-C [address] [facility] [id number] [place] [address] [phone] Follow Up; Medications Only; Heart Failure; Shortness of Breath; Leg Swelling 09/30/2018 Office Visit [facility] 4000 [facility] [id number] [place] [address] Social History Date Tobacco Use Types Packs/Day [...] Signs Reading Time Taken Comments Vital Sign 114/50 09/30/2018 9:01 AM CDT Blood Pressure 56 09/30/2018 9:01 AM CDT Pulse - - Temperature - - Respiratory Rate - - Oxygen Saturation - - Inhaled Oxygen Concentration 94.4 kg (208 lb 3.2 oz) 09/30/2018 9:01 AM CDT Weight 162.6 cm (5' 4") 09/30/2018 9:01 AM CDT Height 35.74 09/30/2018 9:01 AM CDT Body Mass Index documented in [...] on Thursday at the cancer center in [place], [place]. 3. Next follow up appointment already [...] helps keep you out of the hospital: josias solorio call if you have concerns about the side effects, cost or refills. 9. Follow low sodium dietary restriction- 2000 mg daily. Thank you for coming to [facility]iology [facility]. Emiliano Michael SINGH Nurse Practitioner Tracie Stuart RN [phone] Heart Failure Education Summary You have been [...] does not resolve with rest or nitroglycerin [place], foamy mucus with cough and shortness of [...] concerns or questions. Emiliano Rodriguez APRN Pager #[phone] Collaborating MD:JAYSHREE Current Medications (including today's revisions) [...] tablet Take 1 mg by mouth daily. duiejcot-tphlfeykd-L-manganese 500-400-2-0.33 mg cap Take 500 mg by [...]
--- OUTSIDE RECORDS SUMMARY | 2018-12-27 16:05 | XMS REPORT | Encounter Summary ---
Author Author [facility] Organization [facility] Address Unknown Phone Unavailable Care Team Providers Care Senior Electrical Controls Engineer Name Role Phone Carla Wilson MD PCP Naima Field MD Unavailable Winnie Jorge MD Unavailable Emiliano Rodriguez APRN,LANDSCAPING SUPERVISOR-C 7 Reason for Visit * Reason Comments Labs Only Encounter Details Care Team Description Date Type Department Clary Martins, [place] Labs Only 10/13/2018 Documentation [facility] [address] [id number] [place] [address] Social History Date Tobacco Use Types Packs/Day [...] LAB eGFR Non 18 OTHER OUTSIDE LAB Montenegrin eGFR OTHER OUTSIDE Montenegrin LAB Anion Gap 11 OTHER OUTSIDE LAB [...]
--- OUTSIDE RECORDS SUMMARY | 2018-12-27 16:05 | XMS REPORT | Encounter Summary ---
Author Author [facility] Organization [facility] Address Unknown Phone Unavailable Care Team Providers Care Clinic Coordinator Name Role Phone Carla Wilson MD PCP Naima Field MD Unavailable Winnie Jorge MD Unavailable Emiliano Rodriguez APRN,BREAD AND PASTRY BAKER-C 7 Reason for Visit * Reason Comments Labs Only Encounter Details Care Team Description Date Type Department Clary Martins RN Labs Only 10/07/2018 Documentation [facility] [id number] [place] [address] Social History Date Tobacco Use Types Packs/Day [...] - 10/07/2018 2:08 PM CDT Emiliano Rodriguez, EMT I/85,BREAD AND PASTRY BAKER-C Clary Martins, RN Her creat is stable; will let her f/u with Felisa tomorrow. Pt to f/u with Dr. Sneed on Sunday 10/08 documented in this encounter Plan of Treatment Not on filedocumented as of this encounter Visit Diagnoses Not on filedocumented in this encounter
--- OUTSIDE RECORDS SUMMARY | 2018-12-27 16:05 | XMS REPORT | Encounter Summary ---
Author Author [facility] Organization [facility] Address Unknown Phone Unavailable Care Team Providers Care Mosaic Layer Name Role Phone Carla Wilson MD PCP Naima Field MD Unavailable Winnie Jorge MD Unavailable Emiliano Rodriguez APRN,HEARING DOG TRAINER-C 7 Encounter Details Care Team Description Date Type Department Janell Del Cid 10/07/2018 Documentation The [facility] [id number] [place] [address] Social History Date Tobacco Use Types Packs/Day [...] [facility] MAIN LAB eGFR [facility]IN [facility] Cuban Anion Gap 7 5 - 14 [facility] Specimen Blood - Blood Narrative Performed At Performing Organization Address City/State/Zipcode Phone Number MAIN LAB [address] [place] [address] documented in this encounter Visit Diagnoses Diagnosis Chronic diastolic heart failure (HCC) Chronic diastolic heart failure documented in this encounter
--- OUTSIDE RECORDS SUMMARY | 2018-12-27 16:05 | XMS REPORT | Encounter Summary ---
Author Author [facility] Organization [facility] Address Unknown Phone Unavailable Care Team Providers Care Turbine Measurements Engineer Name Role Phone Carla Wilson MD PCP Naima Field MD Unavailable Winnie Jorge MD Unavailable Reason for Visit * Reason Comments Weight Gain Encounter Details Care Team Description Date Type Department Estrella Chauhan LPN Weight Gain 09/23/2018 Telephone [facility] [id number] [place] [address] Social History Date Tobacco Use Types Packs/Day [...] the phone was 207.2 lbs. Called via [facility] in [facility] and requested records and lab results [...] is not taking potassium per Dr. Nelson, nieves dironaldo cs at this time, compliant with all [...]
--- OUTSIDE RECORDS SUMMARY | 2018-12-27 16:05 | XMS REPORT | Encounter Summary ---
Author Author [facility] Organization [facility] Address Unknown Phone Unavailable Care Team Providers Care Machine Operators Name Role Phone Carla Wilson MD PCP Naima Field MD Unavailable Winnie Jorge MD Unavailable Emiliano Rodriguez APRN,PROGRAM MANAGER TRANSPORTATION-C 7 Reason for Visit * Reason Comments Lab Request Encounter Details Care Team Description Date Type Department Clary Martins RN Lab Request 10/07/2018 Telephone [facility] [address] [facility] [place] [address] Social History Date Tobacco Use Types Packs/Day [...]
--- OUTSIDE RECORDS SUMMARY | 2018-12-27 16:05 | XMS REPORT | Encounter Summary ---
Author Author [facility] Organization [facility] Address Unknown Phone Unavailable Care Team Providers Care Regional Vice President Life Sales Name Role Phone Carla Wilson MD PCP Naima Field MD Unavailable Winnie Jorge MD Unavailable Emiliano Rodriguez APRN,BREAST WORKER-C 7 Reason for Visit * Reason Comments Lab Request Encounter Details Care Team Description Date Type Department Oliverio Mcneil LPN Lab Request 10/04/2018 Telephone [facility] [id number] [place] [address] Social History Date Tobacco Use Types Packs/Day [...] 10:15 AM CDT Records request sent to [facility] for pts lab results. * Telephone Encounter - Oliverio Mcneil LPN - 10/04/2018 4:23 PM CDT Pt called reporting she had labs drawn today at [facility] in [facility]. documented in this encounter Plan of Treatment Not on filedocumented as of this encounter Visit Diagnoses Not on filedocumented in this encounter
--- OUTSIDE RECORDS SUMMARY | 2018-12-27 16:05 | XMS REPORT | Encounter Summary ---
Author Author [facility] Organization [facility] Address Unknown Phone Unavailable Care Team Providers Care Scale And Skip Car Operator Name Role Phone Carla Wilson MD PCP Naima Field MD Unavailable Winnie Jorge MD Unavailable Emiliano Rodriguez APRN,REGISTRATION REP-C 7 Reason for Referral * Consult, Test & Treat (Routine) Referred By Contact Referred To Contact Status Reason Specialty Diagnoses / Procedures Felisa Sneed MD [address] [place] [address] Pending Review Procedures REQUEST FOR CARDIOLOGY APPOINTMENT * Consult, Test & Treat (Routine) Referred By Contact Referred To Contact Status Reason Specialty Diagnoses / Procedures Felisa Sneed MD [address] [place] [address] [phone] New Request Procedures REQUEST FOR CARDIOLOGY APPOINTMENT * Consult, Test & Treat (Routine) Referred By Contact Referred To Contact Status Reason Specialty Diagnoses / Procedures Felisa Sneed MD [address] [place] [address] [phone] New Request Procedures REQUEST FOR CARDIOLOGY APPOINTMENT Reason for Visit * Reason Comments CAD follow up * Consult, Test & Treat (Routine) Referred By Contact Referred To Contact Status Reason Specialty Diagnoses / Procedures Felisa Sneed MD [address] [place] [address] [phone] New Request Procedures REQUEST FOR CARDIOLOGY APPOINTMENT Encounter Details Care Team Description Date Type Department Felisa Sneed MD [address] [facility] [place] [address] [phone] CAD (follow up) 10/08/2018 Office Visit [facility] [address] [place] [address] Social History Date Tobacco Use Types Packs/Day [...] Signs Reading Time Taken Comments Vital Sign 140/64 10/08/2018 1:13 PM CDT Blood Pressure - - Pulse - - Temperature - - Respiratory Rate 93% 10/08/2018 1:13 PM CDT Oxygen Saturation - - Inhaled Oxygen Concentration 93.3 kg (205 lb 11.2 oz) 10/08/2018 1:10 PM CDT Weight 162.6 cm (5' 4") 10/08/2018 1:10 PM CDT Height 35.31 10/08/2018 1:10 PM CDT Body Mass Index documented in [...] our office with any questions or concerns [phone] documented in this encounter Progress Notes * Felisa Sneed MD - 10/08/2018 1:00 PM CDT Date of Service: 10/08/2018 Deborah Fields is a 63 y.o. female. HPI Deborah Fields is a 63 y.o. female who I follow for chronic diastolic heart fail ure and coronary artery disease as well as paroxysmal atrial fib. While her hea rt disease has been stable, unfortunately she has had worsening GI bleeding and bloody stools requiring a need to resume transfusions. She has GAVE and chronic iron deficiency anemia as a result. She has been working closely locally with her hotel concierge to arrange transfusions. She is also seen in our liver and GI teams here at to help manage her anemia. She is still on oxygen, and her dys pnea is stable. Weight and swelling seem to be improved on this current dose of diuretic. She has occasional transient chest pain and dizzy spells. Anemia ma kes these three issues worse. She currently denies irregular heartbeat/palpitat ions, syncope/near syncope, and paroxysmal nocturnal dyspnea. She has stable 2 pillow orthopnea. Vitals: 10/08/18 1310 10/08/18 1313 BP: 142/70 140/64 SpO2: 93% Weight: 93.3 kg (205 lb 11.2 oz) Height: 1.626 m (5' 4") Body mass index is 35.31 kg/m. Past Medical History Patient Active Problem List Diagnosis Date Noted CKD 09/30/2018 Morbid obesity (HCC) 06/01/2018 Acute on chronic diastolic heart failure due to coronary artery disease (HCC ) 03/31/2018 Chronic diastolic heart failure (HCC) 03/31/2018 Long's esophagus 03/30/2018 Left leg cellulitis 03/29/2018 Pleural effusion on left 03/26/2018 Essential hypertension 02/23/2018 DELROY (acute kidney injury) (HCC) 02/18/2018 CAD (coronary artery disease), [place] coronary artery 02/16/2018 02/16/18: CABG x4 (PRIDE to the LAD, reversed SVG in sequence to the OM & left posterolateral arteries, and reversed SVG anastomosed to the posterior luiz cending branch of the RCA). Bilateral modified CryoMaze procedure (pulmonary vei n isolation). Suture ligation of left atrial appendage. HLD (hyperlipidemia) 02/16/2018 Hypothyroidism 02/16/2018 Hepatitis B 02/16/2018 Obstructive pattern present on pulmonary function testing 02/16/2018 Thrombocytopenia (HCC) 02/16/2018 Junctional rhythm 02/16/2018 Type 2 diabetes mellitus with circulatory disorder, without long-term curren t use of insulin ([facility]) 02/12/2018 PAF (paroxysmal atrial fibrillation) ([facility]) 02/12/2018 02/16/18: Bilateral modified CryoMaze procedure (pulmonary vein isolation) & Suture ligation of left atrial appendage at time of CABG. 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 HENT: Negative. Eyes: Negative. Cardiovascular: Positive for dyspnea on exertion, near-syncope, orthopnea and pa lpitations. Respiratory: Positive for shortness of breath and sleep disturbances due to alia thing. Endocrine: Negative. Hematologic/Lymphatic: Bruises/bleeds easily. Skin: Positive for dry skin, itching and unusual hair distribution. Musculoskeletal: Positive for arthritis, back pain, joint pain and muscle weakne ss. Gastrointestinal: Positive for bloating, abdominal pain, anorexia, flatus, hemat ochezia, hemorrhoids, melena, nausea and vomiting. Genitourinary: Negative. Neurological: Positive for difficulty with concentration, disturbances in coordi nation, dizziness and loss of balance. Psychiatric/Behavioral: Positive for depression and memory loss. The patient is nervous/anxious. Allergic/Immunologic: Positive for environmental allergies. Physical Exam BP 140/64 (BP Source: Arm, Right Upper) | Ht 1.626 m (5' 4") | Wt 93.3 kg (205 lb 11.2 oz) | SpO2 93% | BMI 35.31 kg/m BP Readings from Last 3 Encounters: 10/08/18 140/64 09/30/18 114/50 09/07/18 128/43 Pulse Readings from Last 3 Encounters: 09/30/18 56 09/07/18 69 08/24/18 74 Wt Readings from Last 8 Encounters: 10/08/18 93.3 kg (205 lb 11.2 oz) 09/30/18 94.4 kg (208 lb 3.2 oz) 09/07/18 90.7 kg (200 lb) 08/24/18 90.6 kg (199 lb 11.2 oz) 07/07/18 114.3 kg (252 lb) 07/06/18 114.7 kg (252 lb 14.4 oz) 07/01/18 121.6 kg (268 lb) 06/18/18 120 kg (264 lb 8.8 oz) Constitutional: She appears well-developed and well-nourished. HENT: Head: Normocephalic. Mouth/Throat: Oropharynx is clear and moist. Eyes: Conjunctivae are normal. Neck: Normal range of motion. No JVD present. Normal carotid pulses. Cardiovascular: Normal rate, regular rhythm, normal heart sounds and intact dist al pulses. Exam reveals no gallop and no friction rub. No murmur heard. Pulmonary/Chest: Decreased at right base. No respiratory distress. She has no wh eezes. She has no rales. She exhibits no chest wall tenderness. Abdominal: Soft. Bowel sounds are normal. She exhibits no distension. There is n o tenderness. Musculoskeletal: Normal range of motion and muscular tone. She exhibits no edema or tenderness. Neurological: She is alert and oriented to person, place, and time. No focal def icits. Skin: Skin is warm. No erythema. Psychiatric: She has a normal mood and affect. Judgment, behavior, and thought c ontent normal. Cardiovascular Studies CBC w/Diff Lab Results Component Value Date/Time WBC 4.7 09/27/2018 RBC 2.79 09/27/2018 HGB 8.3 09/27/2018 HCT 26 09/27/2018 MCV 94 09/27/2018 MCH 30 09/27/2018 MCHC 32 09/27/2018 RDW 15.2 09/27/2018 PLTCT 139 09/27/2018 MPV 10.5 09/27/2018 Lab Results Component Value Date/Time NEUT 50 09/06/2018 10:30 AM ANC 1.6 (L) 09/06/2018 10:30 AM LYMA 13 (L) 07/01/2018 03:20 PM ALC 1.0 09/06/2018 10:30 AM CASI 12 07/01/2018 03:20 PM AMC 0.3 09/06/2018 10:30 AM EOSA 3 07/01/2018 03:20 PM AEC 0.2 09/06/2018 10:30 AM BASA 0 07/01/2018 03:20 PM ABC 0.0 09/06/2018 10:30 AM Comprehensive Metabolic Profile Lab Results Component Value Date/Time NA 138 10/04/2018 K 4.7 10/04/2018 K 4.9 09/27/2018 K 5.0 09/22/2018 K 4.9 09/17/2018 CL 107 10/04/2018 CO2 24 10/04/2018 GAP 7 10/04/2018 BUN 26 (H) 10/04/2018 CR 2.08 (H) 10/04/2018 CR 2.32 09/27/2018 CR 3.02 09/22/2018 CR 2.4 (A) 09/17/2018 GLU 259 (H) 10/04/2018 GLU 96 09/06/2018 10:30 AM Lab Results Component Value Date/Time CA 9.8 10/04/2018 PO4 2.6 06/07/2018 03:24 AM ALBUMIN 3.4 09/27/2018 TOTPROT 6.9 09/27/2018 ALKPHOS 57 09/27/2018 AST 17 09/27/2018 ALT 11 09/27/2018 TOTBILI 0.7 09/27/2018 GFR 24 10/04/2018 GFRAA 12 08/17/2018 Cardiac Enzymes Lipids Lab Results Component Value Date/Time BNP 247.0 (H) 06/01/2018 06:31 PM BNP 1,178.0 (H) 02/12/2018 08:18 PM TNI 0.028 09/27/2018 TNI 0.01 06/10/2018 10:20 PM TNI 0.01 06/08/2018 04:45 AM Lab Results Component Value Date CHOL 88 02/20/2018 TRIG 85 02/20/2018 HDL 36 (L) 02/20/2018 LDL 43 02/20/2018 VLDL 17 02/20/2018 NONHDLCHOL 52 02/20/2018 Coagulation Endocrine Lab Results Component Value Date/Time INR 1.1 07/01/2018 03:20 PM INR 1.2 06/06/2018 06:20 AM INR 1.2 06/05/2018 03:43 AM Lab Results Component Value Date/Time HGBA1C 7.1 (H) 02/12/2018 08:18 PM TSH 0.13 (L) 08/23/2018 TSH 1.990 06/01/2018 10:00 PM Problems Addressed Today Encounter Diagnoses Name Primary? Chronic diastolic heart failure (HCC) Yes Heart disease Assessment and Plan Deborah Fields is a 63 y.o. female with chronic diastolic heart failure, paroxys mal atrial fibrillation, and stable coronary artery disease. She is warm and eu volemic on exam today. #HFpEF with coplcated cirrhosis/GAVE/ GI bleeding and now transfusion dependent iron deficiency anemia: She is euvolemic, but tends to get volume overloaded wh en she has blood transfusions. She should continue current diuretic but take an extra dose of Bumex or get iv lasix on days she gets transfusion. Due to her r enal function I will decrease digoxin to every other day. #Recurrent GI bleeding: I would like her to try to get into see Dr. Padilla or 1 of her GI colleagues before her next visit in February as it seems her GI blee ding is worsening and she is now resuming a pattern of transfusion dependent ane cyril. She gets weekly CBCs as a result of her significant anemia, but with next set of labs I would like to check a CMP and magnesium as well. I would like her to follow-up with our nurse practitioner Emiliano Rodriguez in the ne xt month and return to see me in 3 months. Thank you for allowing me to participate in the care of this patient. Please do not hesitate to contact me should you have any questions or concerns. Felisa Sneed MD, PhD Pager [phone] Current Medications (including today's revisions) bumetanide (BUMEX) [...] tablet Take 1 mg by mouth daily. ssffvqdh-wdhecybsk-I-manganese 500-400-2-0.33 mg cap Take 500 mg by [...] Order Schedule Name Type Priority Associated Diagnoses Expected: 10/22/2018 (Approximate), Expires: 10/09/2019 BNP (B-TYPE NATRIURETIC Lab Routine Heart disease PEPTI) Chronic diastolic heart failure (HCC) Twice a Week Auto for 99 Occurrences starting 10/08/2018 until 10/09/2019 BASIC METABOLIC PANEL Lab Routine Chronic diastolic heart failure (HCC) documented [...] [facility] eGFR [facility] Pakistani Anion Gap 15 (H) 5 - 14 [facility] Specimen Blood - Blood Narrative Performed At Performing Organization Address City/[facility]/Zipcode Phone Number MAIN LAB [address] [phone] * MAGNESIUM (11/02/2018) Magnesium 1.6 (L) 1.8 - 2.4 [facility] MA[facility] Specimen Blood - Blood Performing Organization Address City/[facility] Phone Number MAIN LAB [address] [place] [address] * CBC (11/01/2018) White Blood 5.9 4.3 [...] Specimen Blood - Blood Performing Organization Address City/[facility] Phone Number MAIN LAB [address] [place] [address] documented in this encounter Visit Diagnoses Diagnosis Chronic diastolic heart failure (HCC) - Primary Chronic diastolic heart failure Heart disease Heart disease, unspecified documented in this encounter
--- OUTSIDE RECORDS SUMMARY | 2018-12-27 16:06 | XMS REPORT | Encounter Summary ---
Author Author [facility] Organization [facility] Address Unknown Phone Unavailable Care Team Providers Care Laborer Wharf Name Role Phone Carla Wilson MD PCP Naima Field MD Unavailable Winnie Jorge MD Unavailable Reason for Visit * Reason Comments Follow-up Phone Call Encounter Details Care Team Description Date Type Department Lynette Diana MD 4000 [facility] [place] [address] Follow-up Phone Call 09/17/2018 Telephone The [facility] [address] [address] Social History Date Tobacco Use [...]
--- OUTSIDE RECORDS SUMMARY | 2018-12-27 16:06 | XMS REPORT | Encounter Summary ---
Author Author [facility] Organization [facility] Address Unknown Phone Unavailable Care Team Providers Care Cap Sizer Name Role Phone Carla Wilson MD PCP [...] hepatic cirrhosis type (HCC) [K74.60] P rocedures DE COLONOSCOPY FLX DX W/COLLJ SPEC WHEN PFRMD DE EGD ABLATE TUMOR POLYP/LESION W/DILATION& WIRE COLONOSCOPY DIAGNOSTIC WITH SPECIMEN COLLECTION BY BRUSHING/ WASHING - FLEXIBLE ESOPHAGOGASTRODUOD ENOSCOPY WITH ABLATION TUMOR/ POLYP/ OTHER LESION - FLEXIBLE Encounter Details Care Team Description Date Type Department Mona Tapia, PRIMO [address] [place] [address] [phone] 09/07/2018 Anesthesia [facility] [address] [place] [address] Anesthesia Record Responsible Anesthesiologist Anesthesia Start Time Anesthesia Stop Time Procedure Name Vernon Galan MD 09/07/18 0759 09/07/18 0943 COLONOSCOPY DIAGNOSTIC WITH SPECIMEN COLLECTION BY BRUSHING/ WASHING - FLEXIBLE (N/A ) Date Time Event Comment 724 AN Equip Check 2018 754 0758 Out of Pre Procedure 0759 Anes [...] Placement Wounds 02/16/18; 1831; Chest; Surgical 02/16/18 183 by Gregg, (NOT [...] by Janell Jenkins RN Portacath 07/01/18; 1550; 09/07/18; 1025 07/01/18 1550 by Jeniffer Dobbs 09/07/18 1025 by Janell Jenkins RN Peripheral 09/07/18; 0821; R; Hand; 20 G (by 09/07/18 0821 by JUAN A Tapia MD); 1; 09/07/18; 1025 Mona, [facility] 09/07/18 1025 by Janell Jenkins RN Peripheral [...] tablet Take 1 mg by mouth daily. gsomtnlh-bonihgnfo-I-manganese 500-400-2-0.33 mg cap Take 500 mg by [...] Blood Consent: consented Plan discussed with: anesthesiologist, MECHANICAL MAINTENANCE TECHNICIAN and surgeon/proceduralist. documented in this encounter Plan of Treatment Not on filedocumented as of this encounter Visit Diagnoses Not on filedocumented in this encounter Administered Medications Action Date Dose Rate Site Medication Order MAR Action 09/07/2018 9:00 AM CDT 5 mg ePHEDrine 50 mg/mL 50 mg in sodium Bolus chloride PF 0.9% 5 mL IV syringe 5 mL, INTRA-PROCEDURE MED(CONT), Starting Thu09/07/18 at 0841, Until Thu09/07/18 at 0946, Anesthesia Intra-op 5 mg Bolus 09/07/2018 8:59 [...] 0759, Until Thu09/07/18 at 09, Anesthesia Intra-op 0.5 mg Given 09/07/2018 8:58 AM CDT 1 mg Given 09/07/2018 7:59 AM CDT 09/07/2018 8:53 AM CDT 4 mg ondansetron (ZOFRAN) injection Given INTRA-PROCEDURE MED, Starting Thu09/07/18 at 0853, Until Thu09/07/18 at 09, Anesthesia Intra-op 09/07/2018 9:28 AM CDT propofol (DIPRIVAN) infusion Given - New 20 mL, Intravenous, INTRA-PROCEDURE Bag MED(CONT), Starting Thu09/07/18 at 0804, Until Thu09/07/18 at 09, Anesthesia Intra-op 25,000 mcg Bolus 09/07/2018 9:19 AM CDT 120 mcg/kg/min 65.3 mL/hr Dose/Rate Change 09/07/2018 9:15 AM CDT documented in this encounter
--- OUTSIDE RECORDS SUMMARY | 2018-12-27 16:06 | XMS REPORT | Encounter Summary ---
Author Author [facility] Organization [facility] Address Unknown Phone Unavailable Care Team Providers Care Truck Driving Name Role Phone Carla Wilson MD PCP Naima Field MD Unavailable Winnie Jorge MD Unavailable Reason for Visit * Reason Comments Labs Only Encounter Details Care Team Description Date Type Department Pat Combs RN Labs Only 09/17/2018 Documentation The [facility] [id number] [place] [address] Social History Date Tobacco Use Types Packs/Day [...] [facility] eGFR [facility] Algerian Anion Gap 8 [facility] MAIN [facility] Specimen [...] Organization Address City/State/Zipcode Phone Number MAIN LAB [address] [place] [address] documented in this encounter Visit Diagnoses Diagnosis Chronic diastolic heart failure (HCC) Chronic diastolic heart failure documented in this encounter
--- OUTSIDE RECORDS SUMMARY | 2018-12-27 16:06 | XMS REPORT | Encounter Summary ---
Author Author [facility] Organization [facility] Address Unknown Phone Unavailable Care Team Providers Care Angle Shear Operator Name Role Phone Carla Wilson MD PCP Naima Field MD Unavailable Winnie Jorge MD Unavailable Encounter Details Care Team Description Date Type Department Yan Zavaleta Elevated liver enzymes 09/07/2018 Orders Only The [address] [address] Social History Date Tobacco Use [...] LABDE INTERFACE Outside Lab Verified by Yan Zavlaeta on 09/07/2018. Performing Organization Address City/[facility] Phone Number [facility] INTERFACE * COMPREHENSIVE METABOLIC [...]
--- OUTSIDE RECORDS SUMMARY | 2018-12-27 16:06 | XMS REPORT | Encounter Summary ---
Author Author [facility] Organization [facility] Address Unknown Phone Unavailable Care Team Providers Care Printed Circuit Boards Contact Printer Name Role Phone Carla Wilson MD PCP Naima Field MD Unavailable Winnie Jorge MD Unavailable Reason for Visit * Reason Comments Other Encounter Details Care Team Description Date Type Department Lynette Diana MD [address] [address] Other 09/20/2018 Telephone [facility] [address] [address] Social History Date Tobacco Use [...]
--- OUTSIDE RECORDS SUMMARY | 2018-12-27 16:06 | XMS REPORT | Encounter Summary ---
Author Author [facility] Organization [facility] Address Unknown Phone Unavailable Care Team Providers Care Law Firm Receptionist Name Role Phone Carla Wilson MD PCP Naima Field MD Unavailable Winnie Jorge MD Unavailable Encounter Details Care Team Description Date Type Department Lynette Diana MD 4000 [facility] [place] [address] Elevated liver enzymes (Primary Dx) 09/07/2018 Orders Only [facility] [address] [address] Social History Date Tobacco Use [...] Yan Zavaleta on 09/07/2018. Performing Organization Address City/State[facility] Phone Number LABDE INTERFACE * CBC AND [...]
--- OUTSIDE RECORDS SUMMARY | 2018-12-27 16:06 | XMS REPORT | Encounter Summary ---
Author Author [facility] Organization [facility] Address Unknown Phone Unavailable Care Team Providers Care Automotive Parts Coordinator Name Role Phone Carla Wilson MD PCP Naima Field MD Unavailable Winnie Jorge MD Unavailable Emiliano Rodriguez APRN,CLIENT DEVELOPMENT MANAGER-C 7 Reason for Visit * Reason Comments Medication Refill Encounter Details Care Team Description Date Type Department Felisa Sneed MD 4000 [facility] [place] [address] [phone] Medication Refill 09/16/2018 Refill The [facility] [address] [place] [address] [address] [place] [address] Social History Date Tobacco Use Types Packs/Day [...]
--- OUTSIDE RECORDS SUMMARY | 2018-12-27 16:06 | XMS REPORT | Encounter Summary ---
Author Author [facility] Organization [facility] Address Unknown Phone Unavailable Care Team Providers Care Cash Applications Clerk Name Role Phone Carla Wilson MD PCP Naima Field MD Unavailable Winnie Jorge MD Unavailable Reason for Visit * Reason Comments Weight Gain Encounter Details Care Team Description Date Type Department Oliverio Mcneil LPN Weight Gain 09/08/2018 Telephone [facility] [address] [facility] [place], [place] [address] Social History Date Tobacco Use Types Packs/Day [...] cell phone. Lab requisition faxed to [facility]. * Telephone Encounter - Amee Vazquez RN - 09/17/2018 9:36 AM CDT Received refill request for Bumex today. Noted Bumex not on patient's medication list. Per last notes, Dr. Nelson had asked patient to increase Bumex to 3mg BID. I called and spoke to patient. She states she has been taking 3mg Bumex BID [facility] e 09/15. Patient states her edema has [...] send script at that time. Called [facility] and verified they will be drawing patient's lab s today. Spoke to Linda Anevia, and she said she would make sure [...] adding potassium. Prescription sent to pharmacy in [place], [place]. Asked that labs be redrawn on [...] Deborah Fields is an established patient with [facility]. Signs and Symptoms She reports [...] 201 09/11 201.2 09/10 200.8 Called [facility] in [facility] and requested BMP results to Heart [...] of taking medication. Labs faxed to [facility] * Telephone Encounter - Alice Esposito RN [...] 32 oz daily Date Weight B/P Pulse 09/08 09/07 121/69 09/06 204.8 09/05 09/04 09/03 09/02 09/01 08/31 08/30 199 Pt reports weights are from when she goes to cancer center weekly, pt encouraged to weigh at home daily and write down weights. documented in this encounter Plan of Treatment Order Schedule Name Type Priority Associated Diagnoses Expected: 09/20/2018 (Approximate), Expires: 09/14/2019 BASIC METABOLIC PANEL Lab Routine Chronic diastolic heart failure (HCC) Expected: 09/17/2018 (Approximate), Expires: 09/18/2019 BASIC METABOLIC PANEL Lab Routine Chronic diastolic [...] [facility]IN [facility] eGFR [facility] Andorran Anion Gap 8 [facility] MAIN LAB Specimen [...] City/State/Zipcode Phone Number [facility] MAIN LAB [address] [place] [address] documented in this encounter Visit Diagnoses Diagnosis Chronic diastolic heart failure (HCC) - Primary Chronic diastolic heart failure documented in this encounter
--- OUTSIDE RECORDS SUMMARY | 2018-12-27 16:07 | XMS REPORT | Encounter Summary ---
Author Author [facility] Organization [facility] Address Unknown Phone Unavailable Care Team Providers Care Aquarist Name Role Phone Carla Wilson MD PCP Naima Field MD Unavailable Winnie Jorge MD Unavailable Reason for Visit * Reason Comments Other call to MD Encounter Details Care Team Description Date Type Department Lynette Diana MD [address] [address] Other (call to MD) 09/02/2018 Telephone [facility] [address] [address] Social History Date Tobacco Use [...] - 09/03/2018 9:19 AM CDT Returned call- [facility]. * Telephone Encounter - Sofía Rhoades - 09/02/2018 3:26 PM CDT Please return a call to Deborah regarding her upcoming procedures for 09/07/18. Colt lambert has questions regarding the ablation. documented in this encounter Plan of Treatment Not on filedocumented as of this encounter Visit Diagnoses Not on filedocumented in this encounter
--- OUTSIDE RECORDS SUMMARY | 2018-12-27 16:07 | XMS REPORT | Encounter Summary ---
Author Author [facility] Organization [facility] Address Unknown Phone Unavailable Care Team Providers Care Steel Cutter Name Role Phone Carla Wilson MD PCP Naima Field MD Unavailable Winnie Jorge MD Unavailable Emiliano Rodriguez APRN,MUCK FARMER-C 7 Reason for Referral * Consult, Test & Treat (Routine) Referred By Contact Referred To Contact Status Reason Specialty Diagnoses / Procedures Felisa Sneed MD [address] [place] [address] [phone] New Request Procedures REQUEST FOR CARDIOLOGY APPOINTMENT * (Routine) Referred By Contact Referred To Contact Status Reason Specialty Diagnoses / Procedures Felisa Sneed MD [address] [place] [address] [phone] New Request Procedures REQUEST FOR CARDIOLOGY APPOINTMENT Reason for Visit * Reason Comments CHF follow up * (Routine) Referred By Contact Referred To Contact Status Reason Specialty Diagnoses / Procedures Felisa Sneed MD [address] [place] [address] [phone] New Request Procedures REQUEST FOR CARDIOLOGY APPOINTMENT Encounter Details Care Team Description Date Type Department Felisa Sneed MD [address] [place] [address] [phone] CHF (follow up) 08/24/2018 Office Visit [facility] [address] [place] [address] Social History Date Tobacco Use Types Packs/Day [...] Signs Reading Time Taken Comments Vital Sign 134/70 08/24/2018 2:43 PM CDT Blood Pressure 74 08/24/2018 2:43 PM CDT Pulse - - Temperature - - Respiratory Rate 97% 08/24/2018 2:43 PM CDT Oxygen Saturation - - Inhaled Oxygen Concentration 90.6 kg (199 lb 11.2 oz) 08/24/2018 2:43 PM CDT Weight 162.6 cm (5' 4") 08/24/2018 2:43 PM CDT Height 34.28 08/24/2018 2:43 PM CDT Body Mass Index documented in [...] CMP, Magnesium, BNP documented in this encounter Progress Notes * Felisa Sneed MD - 08/24/2018 2:30 PM CDT Date of Service: 08/24/2018 Deborah Fields is a 63 y.o. female. HPI Deborah Fields is a 63 y.o. female follow-up for diastolic heart failure, paroxy smal atrial fibrillation, and coronary disease having had coronary artery bypass surgery. She currently denies exertional chest pain, sustained irregular heart beat, and palpitations. She does have occasional dizzy spells that are not new, but perhaps more frequent now that she does not have excess fluid on board. She does feel dehydrated. She has no syncope/near syncope, edema, orthopnea, and PND. She does complain of weakness and deconditioning, and thinks she may be m alnurished. 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 Multiple discussions have been had about this, and she is letter of her [facility] ed cardiovascular risk. She has been on oxygen June. She states that she has unintentional weight lo ss, has lost all of her excess fluid weight since resuming diuretic, and then so me. She states she feels sick and cannot eat as well as she normally would. Sh e describes inability to tolerate full meals and throwing up food. She has had chronic transfusion dependent anemia, though recently has not required transfusi on as frequently, but follows with GI and hematology extensively. Vitals: 08/24/18 1443 BP: 134/70 Pulse: 74 SpO2: 97% Weight: 90.6 kg (199 lb 11.2 oz) Height: 1.626 m (5' 4") Body mass index is 34.28 kg/m. Past Medical History Patient Active Problem List Diagnosis Date Noted Morbid obesity (HCC) 06/01/2018 Acute on chronic diastolic heart failure due to coronary artery disease (HCC ) 03/31/2018 Chronic diastolic heart failure (HCC) 03/31/2018 Long's esophagus 03/30/2018 Left leg cellulitis 03/29/2018 Pleural effusion on left 03/26/2018 Essential hypertension 02/23/2018 DELROY (acute kidney injury) (HCC) 02/18/2018 CAD (coronary artery disease), shoshone[place]paiute coronary artery 02/16/2018 02/16/18: CABG x4 (PIRDE to the LAD, reversed SVG in sequence [...] without long-term curren t use of insulin (HCC) 02/12/2018 PAF (paroxysmal atrial fibrillation) (HCC) 02/12/2018 02/16/18: Bilateral modified CryoMaze procedure (pulmonary vein isolation) & Suture ligation of left atrial appendage at time of CABG. 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 anemia 11/13/2017 Added automatically from request for surgery [id number] Review of Systems Constitution: Positive for decreased appetite, weakness, malaise/fatigue and axel ght loss. HENT: Positive for nosebleeds. Eyes: Positive for blurred vision, pain and visual disturbance. Cardiovascular: Positive for claudication, dyspnea on exertion, leg swelling and paroxysmal nocturnal dyspnea. Respiratory: Positive for shortness of breath. Endocrine: Positive for cold intolerance. Hematologic/Lymphatic: Positive for bleeding problem. Skin: Positive for itching and unusual hair distribution. Musculoskeletal: Positive for arthritis, back pain, falls, joint pain, joint swe lling, muscle cramps, muscle weakness, myalgias and stiffness. Gastrointestinal: Positive for abdominal pain, anorexia, constipation, diarrhea, heartburn, hematochezia, melena, nausea and vomiting. Genitourinary: Positive for decreased libido. Neurological: Positive for difficulty with concentration, disturbances in coordi nation, excessive daytime sleepiness, dizziness, focal weakness, light-headednes s, loss of balance, numbness and paresthesias. Psychiatric/Behavioral: Positive for depression and memory loss. The patient is nervous/anxious. Allergic/Immunologic: Positive for environmental allergies. Physical Exam BP 134/70 (BP Source: Arm, Left Upper) | Pulse 74 | Ht 1.626 m (5' 4") | Wt 9 0.6 kg (199 lb 11.2 oz) | SpO2 97% | BMI 34.28 kg/m BP Readings from Last 3 Encounters: 03/12/19 134/70 07/07/18 152/67 07/06/18 148/54 Pulse Readings from Last 3 Encounters: 08/24/18 74 07/07/18 66 07/06/18 72 Wt Readings from Last 3 Encounters: 08/24/18 90.6 kg (199 lb 11.2 oz) 07/07/18 114.3 kg (252 lb) 07/06/18 114.7 kg (252 lb 14.4 oz) Constitutional: She appears well-developed and well-nourished. HENT: Head: Normocephalic. Mouth/Throat: Oropharynx is clear and moist. Eyes: Conjunctivae are normal. Neck: Normal range of motion. No JVD present. Normal carotid pulses. Cardiovascular: Normal rate, regular rhythm, normal heart sounds and intact dist al pulses. Exam reveals no gallop and no friction rub. No murmur heard. Pulmonary/Chest: Effort normal and breath sounds normal. No respiratory distress . She has no wheezes. She has no rales. She exhibits no [...] Judgment, behavior, and thought c ontent normal. CBC w/Diff Lab Results Component Value Date/Time WBC 5.3 07/01/2018 03:20 PM RBC 3.33 (L) 07/01/2018 03:20 PM HGB 9.8 (L) 07/01/2018 03:20 PM HCT 30.3 (L) 07/01/2018 03:20 PM MCV 91.1 07/01/2018 03:20 PM MCH 29.6 07/01/2018 03:20 PM MCHC 32.4 07/01/2018 03:20 PM RDW 17.8 (H) 07/01/2018 03:20 PM PLTCT 170 07/01/2018 03:20 PM MPV 8.0 07/01/2018 03:20 PM Lab Results Component Value Date/Time NEUT 72 07/01/2018 03:20 PM ANC 3.80 07/01/2018 03:20 PM LYMA 13 (L) 07/01/2018 03:20 PM ALC 0.70 (L) 07/01/2018 03:20 PM CASI 12 07/01/2018 03:20 PM AMC 0.60 07/01/2018 03:20 PM EOSA 3 07/01/2018 03:20 PM AEC 0.20 07/01/2018 03:20 PM BASA 0 07/01/2018 03:20 PM ABC 0.00 07/01/2018 03:20 PM Comprehensive Metabolic Profile Lab Results Component Value Date/Time NA 136 (L) 07/01/2018 03:20 PM K 4.3 07/01/2018 03:20 PM CL 95 (L) 07/01/2018 03:20 PM CO2 36 (H) 07/01/2018 03:20 PM GAP 5 07/01/2018 03:20 PM BUN 28 (H) 07/01/2018 03:20 PM CR 1.84 (H) 07/01/2018 03:20 PM GLU 99 07/01/2018 03:20 PM Lab Results Component Value Date/Time CA 9.5 07/01/2018 03:20 PM PO4 2.6 06/07/2018 03:24 AM ALBUMIN 3.3 (L) 07/01/2018 03:20 PM TOTPROT 7.1 07/01/2018 03:20 PM ALKPHOS 56 07/01/2018 03:20 PM AST 23 07/01/2018 03:20 PM ALT 9 07/01/2018 03:20 PM TOTBILI 0.6 07/01/2018 03:20 PM GFR 28 (L) 07/01/2018 03:20 PM GFRAA 34 (L) 07/01/2018 03:20 PM Cardiac Enzymes Lipids Lab Results Component Value Date/Time BNP 247.0 (H) 06/01/2018 06:31 PM BNP 1,178.0 (H) 02/12/2018 08:18 PM TNI 0.01 06/10/2018 10:20 PM TNI 0.01 06/08/2018 04:45 AM TNI 0.01 06/02/2018 03:40 AM Lab Results Component Value Date CHOL 88 02/20/2018 TRIG 85 02/20/2018 HDL 36 (L) 02/20/2018 LDL 43 02/20/2018 VLDL 17 02/20/2018 NONHDLCHOL 52 02/20/2018 Coagulation Endocrine Lab Results Component Value Date/Time INR 1.1 07/01/2018 03:20 PM INR 1.2 06/06/2018 06:20 AM INR 1.2 06/05/2018 03:43 AM Lab Results Component Value Date/Time HGBA1C 7.1 (H) 02/12/2018 08:18 PM TSH 1.990 06/01/2018 10:00 PM Cardiovascular Studies Labs from [place] 08/23 CBC: White blood cell 4.5, hemoglobin 8.9, hematocrit 27, MCV 94, platelets 137. TSH 0.13, free T4 1.63 BMP: Sodium 142, potassium 4.5, chloride 101, bicarb 29, BUN 41, creatinine 3.66 (down from 3.7 on 08/17) glucose 110, calcium 9.1 Problems Addressed Today Encounter Diagnoses Name Primary? Chronic diastolic heart failure (HCC) Yes Heart disease PAF (paroxysmal atrial fibrillation) (HCC) Coronary artery disease involving [place]osh[place]paiute coronary artery of shosh[place]paiute heart wit h angina pectoris (HCC) Hyperlipidemia, unspecified hyperlipidemia type Essential hypertension Assessment and Plan Ms. Fields is a 63-year-old lady with chronic diastolic heart failure, paroxysma l atrial fibrillation, and stable coronary artery disease status post CABG retur umu to heart failure clinic. She is warm and dry with kidney function in flux a nd I suspect over diuresed. I will stop her spironolactone and Bumex today. We will pursue oral rehydration . I would like to check her labs in a few days (CMP, magnesium, BNP) and see he r back in 1 month. In the meantime she will communicate with us by phone should she have change in weights, or worsening symptoms. Her other medical problems are reasonably controlled, but she should speak with her primary care physician regarding her hyperactive thyroid. I need Thank you for allowing me to participate in the care of this patient. Please do not hesitate to contact me should you have any questions or concerns. Felisa Sneed MD, PhD Pager [phone] Current Medications (including today's revisions) bumetanide (BUMEX) 1 mg tablet Take one tablet by mouth twice daily. cetirizine (ZYRTEC) 10 mg tablet Take [...] tablet Take 1 mg by mouth daily. ujvoeajq-cejnqwuau-N-manganese 500-400-2-0.33 mg cap Take 500 mg by [...] luis m rs as needed for Flatulence. spironolactone (ALDACTONE) 25 mg tablet Take one-half tablet by mouth daily. Take with food. tiZANidine (ZANAFLEX) 4 mg tablet Take 4 mg by mouth at bedtime daily. traMADol (ULTRAM) 50 mg tablet Take one tablet by mouth every 6 hours as nee ded for Pain. documented in this encounter Plan of Treatment Order Schedule Name Type Priority Associated Diagnoses Expected: 08/31/2018 (Approximate), Expires: 08/25/2019 COMPREHENSIVE METABOLIC Lab Routine Chronic diastolic heart PANEL failure (HCC) Expected: 08/31/2018 (Approximate), Expires: 08/25/2019 BNP (B-TYPE NATRIURETIC Lab Routine Heart disease PEPTI) Chronic diastolic heart failure (HCC) Expected: 08/31/2018 (Approximate), Expires: 08/25/2019 MAGNESIUM Lab Routine Chronic diastolic heart failure (HCC) Expected: 08/31/2018 (Approximate), Expires: 08/25/2019 CBC Lab Routine Chronic diastolic heart failure (HCC) documented as of this encounter Visit Diagnoses Diagnosis Chronic diastolic heart failure (HCC) - Primary Chronic diastolic heart failure Heart disease Heart disease, unspecified PAF (paroxysmal atrial fibrillation) (HCC) Atrial fibrillation Coronary artery disease involving [place]paiute coronary artery of shosh[place]paiute heart with angina pectoris (HCC) Hyperlipidemia, unspecified hyperlipidemia type Essential hypertension Unspecified essential hypertension documented in this encounter
--- OUTSIDE RECORDS SUMMARY | 2018-12-27 16:07 | XMS REPORT | Encounter Summary ---
Author Author [facility] Organization [facility] Address Unknown Phone Unavailable Care Team Providers Care Product Development Director Name Role Phone Carla Wilson MD PCP Naima Field MD Unavailable Winnie Jorge MD Unavailable Reason for Visit * Reason Comments Labs Only Encounter Details Care Team Description Date Type Department Rina Ruano MA Labs Only 08/27/2018 Documentation [facility] [id number] [place] [address] Social History Date Tobacco Use Types Packs/Day [...] LAB eGFR Non 13 OTHER OUTSIDE LAB Greek eGFR OTHER OUTSIDE Greek LAB Anion Gap 12 OTHER OUTSIDE LAB [...] LAB eGFR Non 12 OTHER OUTSIDE LAB Greek eGFR 12 OTHER OUTSIDE Greek LAB Anion Gap OTHER OUTSIDE LAB BUN/Creatinine 11 OTHER OUTSIDE Ratio LAB Specimen Blood - Blood Performing Organization Address City/State/Zipcode Phone Number OTHER OUTSIDE LAB documented in this encounter Visit Diagnoses Not on filedocumented in this encounter
--- OUTSIDE RECORDS SUMMARY | 2018-12-27 16:07 | XMS REPORT | Encounter Summary ---
Author Author [facility] Organization [facility] Address Unknown Phone Unavailable Care Team Providers Care Station Manager Name Role Phone Carla Wilson MD PCP Naima Field MD Unavailable Winnie Jorge MD Unavailable Reason for Visit * Reason Comments Appointment Question Encounter Details Care Team Description Date Type Department Lynette Diana MD [address] [address] Appointment Question 09/03/2018 Telephone [facility] [address] [address] Social History Date Tobacco Use [...]
--- OUTSIDE RECORDS SUMMARY | 2018-12-27 16:07 | XMS REPORT | Encounter Summary ---
Author Author [facility] Organization [facility] Address Unknown Phone Unavailable Care Team Providers Care Customer Support Professional Name Role Phone Carla Wilson MD PCP Naima Field MD Unavailable Winnie Jorge MD Unavailable Reason for Visit * Reason Comments Results Encounter Details Care Team Description Date Type Department Lynette Diana MD [address] [address] Results 07/19/2018 Telephone [facility] [address] [address] Social History Date Tobacco Use [...] Telephone Encounter - Glo Us RN - 07/20/2018 9:14 AM [employer] INTERNS[employer] Returned call- reviewed US results and colon prep- transferred call to endoscopy for scheduling. [employer] INTERNS[employer] * Telephone Encounter - Jeniffer Walker - 07/19/2018 3:37 PM [employer]NS[employer] Please call pt with recent lab and US results. [employer] documented in this encounter Plan of Treatment Not on filedocumented as of this encounter Visit Diagnoses Not on filedocumented in this encounter
--- OUTSIDE RECORDS SUMMARY | 2018-12-27 16:07 | XMS REPORT | Encounter Summary ---
Author Author [facility] Organization [facility] Address Unknown Phone Unavailable Care Team Providers Care Tire Buster Name Role Phone Carla Wilson MD PCP [...] Date Type Department Lynette Diana MD [address] [facility] [place] [address] [phone] GAVE (gastric antral vascular ectasia) 09/07/2018 [facility] [address] [place] [address] Social History Date Tobacco Use [...] Signs Reading Time Taken Comments Vital Sign 128/43 09/07/2018 10:15 AM CDT Blood Pressure 69 09/07/2018 10:15 AM CDT Pulse 36.3 C (97.3 F) 09/07/2018 9:54 AM CDT Temperature - - Respiratory Rate 100% 09/07/2018 10:15 AM CDT Oxygen Saturation - - Inhaled Oxygen Concentration 90.7 kg (200 lb) 09/07/2018 7:32 AM CDT Weight 162.6 cm (5' 4") 09/07/2018 7:32 AM CDT Height 34.33 09/07/2018 7:32 AM CDT Body Mass Index documented in [...] or concerns after your procedure please call [phone] U-R 8am-5:00 pm. After 5:00 pm, holidays or weekends call [phone] a nd ask for the GI Doctor five piece expansion maker hand. Colon/Lower EUS/Retrograde Enteroscopy Post Lower Endoscopy Instructions [...] or concerns after your procedure please call [phone] U-F 8am-5:00 pm. After 5:00 pm, holidays or weekends call [phone] a nd ask for the GI Doctor five piece expansion maker hand. documented in this encounter Medications at Time [...] 1 mg by 0 tablet mouth daily. viackqzf-lemgyprpp-O-doug Take 500 mg 0 anese 500-400-2-0.33 mg [...] 125 mcg 0 tablet by mouth daily. 07/06/2018 11/30/2018 metoprolol tartrate Take one 180 tablet 3 (LOPRESSOR) 37.5 mg tablet by tablet mouth twice daily. 06/18/2018 09/30/2018 senna/docusate Take one 0 [...] Bleeding disorder (HCC) CAD (coronary artery disease), [place] coronary artery 02/16/2018 Chronic diastolic heart failure [...] tablet Take 1 mg by mouth daily. rxjtkqnl-qcpjitxhn-W-manganese 500-400-2-0.33 mg cap Take 500 mg by [...] GRAFTS (Internal Mammary Artery and Endovascular Vein [place]) performed by Lance Pal MD at [facility] HX MAZE N/A 02/16/2018 MAZE PROCEDURE performed by Lance Pal MD at [facility] UPPER GASTROINTESTINAL ENDOSCOPY N/A 03/29/2018 ESOPHAGOGASTRODUODENOSCOPY [...] NPO Status: Acceptable Status: Not Lab/Radiology/Other Diagnostic Tests: Labs: reviewed, WNL CXR: Not obtained Consults: Anesthesiology Antolin Erazo MD Pager [phone] Associated attestation - Lynette Diana MD - 09/07/2018 8:04 AM CDT ATTESTATION I personally performed the dempsey portions of the E/M visit, discussed case with th e Fellow and concur with documentation of history, physical exam, assessment, an d treatment plan unless otherwise noted. documented in this encounter Plan of Treatment Order Schedule Name Type Priority Associated Diagnoses ONCE for 1 Occurrences starting 09/07/2018 SURGICAL PATHOLOGY Pathology Routine GAVE (gastric antral vascular ectasia) Cirrhosis of liver without ascites, unspecified hepatic cirrhosis type (HCC) documented as of this encounter Procedures Comments Procedure Name Priority Date/Time Associated Diagnosis SURGICAL PATHOLOGY 09/07/2018 9:54 AM CDT COLONOSCOPY 09/07/2018 8:12 AM CDT EGD REPORT 09/07/2018 8:01 AM CDT COLONOSCOPY WITH SNARE 09/07/2018 GAVE (gastric antral REMOVAL TUMOR/ POLYP/ 7:59 AM CDT vascular ectasia) OTHER LESION Cirrhosis of liver without ascites, unspecified hepatic cirrhosis type (HCC) ESOPHAGOGASTRODUODENOSCOP 09/07/2018 GAVE (gastric antral Y WITH ABLATION TUMOR/ 7:59 AM CDT vascular ectasia) POLYP/ OTHER LESION - Cirrhosis of liver FLEXIBLE without ascites, unspecified hepatic cirrhosis type (HCC) COLONOSCOPY DIAGNOSTIC 09/07/2018 GAVE (gastric antral WITH SPECIMEN COLLECTION 7:59 AM CDT vascular ectasia) BY BRUSHING/ WASHING - Cirrhosis of liver FLEXIBLE without ascites, unspecified hepatic cirrhosis type (HCC) POC GLUCOSE 09/07/2018 7:39 AM CDT TELEMETRY STRIPS-SCAN 09/07/2018 12:00 AM CDT documented in this encounter Results * SURGICAL PATHOLOGY (09/07/2018 9:54 AM CDT) PATHOLOGY [email or web address] Department of Pathology and Laboratory Medicine [address] [place] [address] Surgical Pathology Office:[phone] :[phone] SURGICAL PATHOLOGY REPORT NAME: DEBORAH FIELDS Jr SURG PATH #: [id number] MR #: [id number] SPECIMEN CLASS: SR BILLING #: [id number] ALT ID #:LOCATION: [facility] DATE OF PROCEDURE: 09/07/2018 AGE:63 SEX: F [...] entirely submitted in cassette B1. (lmt) lt09/07/2018 Specimen Performing Organization Address City/State/[facility] Phone Number [facility] [address] [place] [address] * COLONOSCOPY (09/07/2018 8:12 AM CDT) Provation Patient Name: Donnie CASTILLO OTHER Report Procedure Date: 09/07/2018 8:12 RESULTS AM CSN: [id number] Date of : 1955 Gender: Female Attending Physician: Lynette Diana MD Procedure: Colonoscop y Indications: Suspected adenomatous polyps in the colon-incomplete colonoscopy 03/2018 Providers: Lynette Diana MD (Doctor), Antolin Erazo (Fellow), Mariana Suarez RN (Nurse), Chapincito Hameed (Cna Hha) Referring Physician: Naima Field Medications: Propofol per [...] 27 seconds Procedure Code(s): --- Professional --- 06471, GC, Colonoscopy, flexible; with removal of tumor(s), polyp(s), or other lesion(s) by snare technique 77939, 59, Colonoscopy, flexible; with biopsy, single or multiple Diagnosis Code(s): --- Professional --- D12.2, Benign neoplasm of ascending colon D12.4, Benign neoplasm of descending colon D12.5, Benign neoplasm of sigmoid colon K62.5, Hemorrhage of anus and rectum CPT copyright 2017 [employer]. All rights reserved. The codes documented in this report are preliminary and upon clinical biostatistics director review may be revised to meet current compliance requirements. Attending Participation: I was present and participated during the entire procedure, including non-dempsey portions. MD Lynette Mercado MD 09/07/2018 9:49:11 AM The attending physician has electronically signed and finalized this document. Antolin Erazo, Number of Addenda: 0 Note Initiated On: 09/07/2018 8:12 AM Specimen Performing Organization Address City/State/Zipcode Phone Number [facility] OTHER RESULTS * EGD REPORT (09/07/2018 8:01 AM CDT) Provation Patient Name: Donnie CASTILLO OTHER Report Procedure Date: 09/07/2018 8:01 RESULTS AM CSN: [id number] Date of : 1955 Gender: Female Attending Physician: Lynette Diana MD Procedure: Upper GI endoscopy Indications: Hx of chronic blood loss 2/2 PHG, GAVE. Requested re look. Providers: Lynette Diana MD (Doctor), Antolin Erazo (Fellow), Mariana Suarez RN (Nurse), [place] Hameed (Cna Hha) Referring Physician: Naima Field Medications: Propofol per [...] Impression: - Z-line irregular, previous possible underlying Logn's described, difficult to appreciate. No biopsies. - [...] 29 seconds Procedure Code(s): --- Professional --- 78927, GC, Esophagogastroduodenoscopy, flexible, transoral; diagnostic, including collection of specimen(s) by brushing or washing, when performed (separate procedure) Diagnosis Code(s): --- Professional --- K22.8, Other specified diseases of esophagus I85.00, Esophageal varices without bleeding K76.6, Portal hypertension K31.89, Other diseases of stomach and duodenum K31.819, Angiodysplasia of stomach and duodenum without bleeding CPT copyright 2017 [employer]. All rights reserved. The codes documented in this report are preliminary and upon clinical biostatistics director review may be revised to meet current compliance requirements. Attending Participation: I was present and participated during the entire procedure, including non-dempsey portions. MD Lynette Mercado MD 09/07/2018 8:19:50 AM The attending physician has electronically signed and finalized this document. Antolin Erazo, Number of Addenda: 0 Note Initiated On: 09/07/2018 8:01 AM Specimen Performing Organization Address City/State/Zipcode Phone Number [facility] OTHER RESULTS * POC GLUCOSE (09/07/2018 7:39 AM CDT) Glucose, POC 120 (H) 70 - 100 MG/DL [facility] Specimen Performing Organization Address City/State/Zipcode Phone Number [facility] [address] [place] [address] * TELEMETRY STRIPS-SCAN (09/07/2018 12:00 AM CDT) [...]
--- OUTSIDE RECORDS SUMMARY | 2018-12-27 16:07 | XMS REPORT | Encounter Summary ---
Author Author [facility] Organization [facility] Address Unknown Phone Unavailable Care Team Providers Care Heart Coordinator Name Role Phone Carla Wilson MD [...] hepatic cirrhosis type (HCC) [K74.60] P rocedures [place] COLONOSCOPY FLX DX W/COLLJ SPEC WHEN PFRMD [place] EGD ABLATE TUMOR POLYP/LESION W/DILATION& WIRE COLONOSCOPY DIAGNOSTIC WITH SPECIMEN COLLECTION BY BRUSHING/ WASHING - FLEXIBLE ESOPHAGOGASTRODUOD ENOSCOPY WITH ABLATION TUMOR/ POLYP/ OTHER LESION - FLEXIBLE Encounter Details Care Team Description Date Type Department Lynette Diana MD 4000 [facility] [place] [address] COLONOSCOPY DIAGNOSTIC WITH SPECIMEN COLLECTION BY BRUSHING/ WASHING - FLEXIBLE 09/07/2018 Surgery [facility] [address] [place] [address] Social History Date Tobacco Use [...] or concerns after your procedure please call R-H 8am-5:00 pm. After 5:00 pm, holidays or weekends call [phone] a nd ask for the GI Doctor contract accountant. Colon/Lower EUS/Retrograde Enteroscopy Post Lower Endoscopy Instructions [...] After 5:00 pm, holidays or weekends call [phone] a nd ask for the GI Doctor contract accountant. documented in this encounter Medications at Time [...] 1 mg by 0 tablet mouth daily. aanaxahr-gctolgirv-C-doug Take 500 mg 0 anese 500-400-2-0.33 mg [...] Bleeding disorder (HCC) CAD (coronary artery disease), [place] coronary artery 02/16/2018 Chronic diastolic heart failure [...] tablet Take 1 mg by mouth daily. pstilwhu-xzycejkqw-M-manganese 500-400-2-0.33 mg cap Take 500 mg by [...] GRAFTS (Internal Mammary Artery and Endovascular Vein [place]) performed by Lance Pal MD at [facility] HX MAZE N/A 02/16/2018 MAZE PROCEDURE performed by Lance Pal MD at [facility] UPPER GASTROINTESTINAL ENDOSCOPY N/A 03/29/2018 ESOPHAGOGASTRODUODENOSCOPY performed [...] obtained Consults: Anesthesiology Antolin Erazo MD Pager [phone] Associated attestation - Lynette Diana MD - [...] PATHOLOGY (09/07/2018 9:54 AM CDT) PATHOLOGY [facility] [employer] [email or web address] Department of Pathology and Laboratory Medicine [address] [place] [address] Surgical Pathology Office:[phone] :[phone] SURGICAL PATHOLOGY REPORT NAME: DEBORAH FIELDS Jr SURG PATH #: [id number] MR #: [id number] SPECIMEN CLASS: SR BILLING #: [id number] ALT ID #:LOCATION: GIEND DATE OF PROCEDURE: [...] B1. (lmt) lt09/07/2018 Specimen Performing Organization Address [facility]State[facility] Phone [facility] [address] [place] [address] * COLONOSCOPY (09/07/2018 8:12 AM CDT) Provation Patient Name: Donnie CASTILLO OTHER Report Procedure Date: 09/07/2018 8:12 RESULTS AM CSN: [id number] Date of : 1955 Gender: Female Attending Physician: Lynette Diana MD Procedure: Colonoscop y Indications: Suspected adenomatous polyps in the colon-incomplete colonoscopy 03/2018 Providers: Lynette Diana MD (Doctor), Antolin Erazo (Fellow), Mariana Suarez RN (Nurse), Chapincito Hameed (Engineer [employer]) Referring Physician: Naima Field Medications: Propofol per [...] 27 seconds Procedure Code(s): --- Professional --- 14787, GC, Colonoscopy, flexible; with removal of tumor(s), polyp(s), or other lesion(s) by snare technique 34210, 59, Colonoscopy, flexible; with biopsy, single or multiple Diagnosis Code(s): --- Professional --- D12.2, Benign neoplasm of ascending colon D12.4, Benign neoplasm of descending colon D12.5, Benign neoplasm of sigmoid colon K62.5, Hemorrhage of anus and rectum CPT copyright 2017 [employer]. All rights reserved. 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 Requested re look. 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 All rights reserved. The codes documented in this report are preliminary and upon remote inpatient coder review may be revised to meet [...] Address City/State/Zipcode Phone Number [facility] [address] [facility] [place] [address] * TELEMETRY STRIPS-SCAN (09/07/2018 12:00 AM CDT) [...]
--- OUTSIDE RECORDS SUMMARY | 2018-12-27 16:08 | XMS REPORT | Encounter Summary ---
Author Author [facility] Organization [facility] Address Unknown Phone Unavailable Care Team Providers Care Water Ski Assembler Name Role Phone Carla Wilson MD PCP Naima Field MD Unavailable Winnie Jorge MD Unavailable Reason for Visit * Reason Comments Other Call To MS Encounter Details Care Team Description Date Type Department Lynette Diana MD [address] [address] Other (Call To MS) 07/06/2018 Telephone [facility] [address] [address] Social History Date Tobacco Use [...] Telephone Encounter - Glo Us RN - 07/06/2018 11:28 AM STOCK CHASER IR has scheduled the patient for the Para. K CHASER * Telephone Encounter - Mariajose Aguiar - 07/06/2018 11:12 AM STOCK CHASER Kinjal LVM with questions about procedure that is supposed to be scheduled tomorr ow. She said she called the surgery center and they did not have an order. Pleas e return call. K CHASER documented in this encounter Plan of Treatment Not on filedocumented as of this encounter Visit Diagnoses Not on filedocumented in this encounter
--- OUTSIDE RECORDS SUMMARY | 2018-12-27 16:08 | XMS REPORT | Encounter Summary ---
Author Author [facility] Organization [facility] Address Unknown Phone Unavailable Care Team Providers Care Business Account Manager Name Role Phone Carla Wilson MD PCP Naima Field MD Unavailable Winnie Jorge MD Unavailable Reason for Visit * Reason Comments Results Encounter Details Care Team Description Date Type Department Lynette Dinaa MD [address] [address] Results 07/09/2018 Telephone [facility] [address] [address] Social History Date Tobacco Use [...] Telephone Encounter - Glo Us RN - 07/13/2018 9:05 AM TRACTOR TRAILER TRUCK DRIVER Returned call- LVM TOR TRAILER TRUCK DRIVER * Telephone Encounter - Alesha Jin - 07/12/2018 4:07 PM TRACTOR TRAILER TRUCK DRIVER Pt left VM about test results from last week's tests. TOR TRAILER TRUCK DRIVER * Telephone Encounter - Glo Us RN - 07/09/2018 1:49 PM TRACTOR TRAILER TRUCK DRIVER Called patient, LVM requesting call back to review recommendations. US results, and due for colonoscopy due to poor prep and polyps TOR TRAILER TRUCK DRIVER documented in this encounter Plan of Treatment Not on filedocumented as of this encounter Visit Diagnoses Not on filedocumented in this encounter
--- OUTSIDE RECORDS SUMMARY | 2018-12-27 16:08 | XMS REPORT | Encounter Summary ---
Author Author [facility] Organization [facility] Address Unknown Phone Unavailable Care Team Providers Care Funeral Director And Embalmer Name Role Phone Carla Wilson MD PCP Naima Field MD Unavailable Winnie Jorge MD Unavailable Reason for Visit * Reason Comments Medication Management Encounter Details Care Team Description Date Type Department Lynette Diana MD [address] [address] Medication Management 07/12/[address] [facility] [address] [address] Social History Date Tobacco Use [...] Telephone Encounter - Glo Us RN - 07/12/2018 9:27 AM INTERNAL AUDIT CONSULTANT Called patient to discuss bowel prep and options- LVM. RNAL AUDIT CONSULTANT * Telephone Encounter - Glo Us RN - 07/12/2018 9:27 AM INTERNAL AUDIT CONSULTANT ----- Message from Lynette Diana MD sent at 07/12/2018 7:56 AM INTERNAL AUDIT CONSULTANT ----- There's nothing else. Mg citrate not appropriate. It's either tons of GoLytely slowly w antiemetics or whole bottle Miralax in Gat orade. ----- Message ----- From: Glo Us RN Sent: 07/09/2018 2:36 PM To: Lynette Diana MD So- she is willing to do the repeat colon, but she vomits with golytely and can not tolerate gatorade- what prep do you want? ----- Message ----- From: Lynette Diana MD Sent: 07/07/2018 2:48 PM To: Glo Us RN Just realized she needs repeat colon at same time as EGD d/t poor prep and polyp s noted. Thanks! RNAL AUDIT CONSULTANT documented in this encounter Plan of Treatment Not on filedocumented as of this encounter Visit Diagnoses Not on filedocumented in this encounter
--- OUTSIDE RECORDS SUMMARY | 2018-12-27 16:08 | XMS REPORT | Encounter Summary ---
Author Author [facility] Organization [facility] Address Unknown Phone Unavailable Care Team Providers Care Percolator Operator Name Role Phone Carla Wilson MD PCP Naima Field MD Unavailable Winnie Jorge MD Unavailable Emiliano Rodriguez APRN,SMALL STOCK FACER-C 7 Reason for Visit * Reason Comments Other Encounter Details Care Team Description Date Type Department Lynette Diana MD 4000 [facility] [place] [address] Other 07/13/2018 Telephone [facility] [address] [address] Social History Date Tobacco Use [...] encounter Miscellaneous Notes * Telephone Encounter - Jeniffer Walker - 07/13/2018 2:04 PM MAIL CARRIER Please call Dr. Haywood's office to find out what records they need faxed. CARRIER documented in this encounter Plan of Treatment Not on filedocumented as of this encounter Visit Diagnoses Not on filedocumented in this encounter
--- OUTSIDE RECORDS SUMMARY | 2018-12-27 16:08 | XMS REPORT | Encounter Summary ---
Author Author [facility] Organization [facility] Address Unknown Phone Unavailable Care Team Providers Care Underwriting Internship Name Role Phone Carla Wilson MD PCP Naima Field MD Unavailable Winnie Jorge MD Unavailable Reason for Visit * Reason Comments Erroneous encounter-disregard Encounter Details Care Team Description Date Type Department Oliverio Mcneil LPN Erroneous encounter-disregard 07/13/2018 Telephone [facility] [address] [facility] [place] [address] Social History Date Tobacco Use Types Packs/Day [...]
--- OUTSIDE RECORDS SUMMARY | 2018-12-27 16:08 | XMS REPORT | Encounter Summary ---
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) Chronic diastolic heart failure (HCC) Chronic gastrointestinal bleeding Essential hypertension Hyperlipidemia, unspecified hyperlipidemia type Type 2 diabetes mellitus with other circulatory complication, without long-term 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 (HCC) P rocedures IR ASPIRATION/DRAIN SC ABDOM PARACENTESIS DX/THER W/IMAGING GUIDANCE * Radiology Services (Routine) Referred By Contact Referred To Contact Status Reason Specialty Diagnoses / Procedures Lynette Diana MD [address] [place] [id number] [place] [address] [place] [address] No Auth Needed Radiology Diagnoses Acute on chronic diastolic heart failure due to coronary artery disease (HCC) DELROY (acute kidney injury) (HCC) 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) Chronic diastolic heart failure (HCC) Chronic gastrointestinal bleeding Essential hypertension Hyperlipidemia, unspecified hyperlipidemia type Type 2 diabetes mellitus with other circulatory complication, without long-term 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 (HCC) P rocedures IR ASPIRATION/DRAIN SC ABDOM PARACENTESIS DX/THER W/IMAGING GUIDANCE Reason for Visit * Radiology Services (Routine) Referred By Contact Referred To Contact Status Reason Specialty Diagnoses / Procedures Lynette Diana MD [address] [address] [place] [address] [place] [address] No Auth Needed Radiology Diagnoses Acute on chronic diastolic heart failure due to coronary artery disease (HCC) DELROY (acute kidney injury) (HCC) 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) Chronic diastolic heart failure (HCC) Chronic gastrointestinal bleeding Essential hypertension Hyperlipidemia, unspecified hyperlipidemia type Type 2 diabetes mellitus with other circulatory complication, without long-term 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 (HCC) P rocedures IR ASPIRATION/DRAIN SC ABDOM PARACENTESIS DX/THER W/IMAGING GUIDANCE Encounter Details Care Team Description Date Type Department Lynette Diana MD [address] [address] [phone] Brody Lofton MD [address] [address] [phone] Christiano Shelby, Carey Murphy, RT(R)(),LRT Acute on chronic diastolic heart failure due to coronary artery disease (HCC) 07/07/2018 [facility] [address] [place] [address] Social History Date Tobacco Use Types Packs/Day [...] Signs Reading Time Taken Comments Vital Sign 152/67 07/07/2018 1:00 PM AIR TRAFFIC SUPERVISOR Blood Pressure 66 07/07/2018 10:23 AM AIR TRAFFIC SUPERVISOR Pulse - - Temperature - - Respiratory Rate 95% 07/07/2018 1:00 PM AIR TRAFFIC SUPERVISOR Oxygen Saturation - - Inhaled Oxygen Concentration 114.3 kg (252 lb) 07/07/2018 10:23 AM AIR TRAFFIC SUPERVISOR Weight 162.6 cm (5' 4") 07/07/2018 10:23 AM AIR TRAFFIC SUPERVISOR Height 43.26 07/07/2018 10:23 AM AIR TRAFFIC SUPERVISOR Body Mass Index documented in this encounter [...] as of this encounter Discharge Instructions * Patient Instructions* Fanny Dominguez RN - 07/07/2018 10:08 AM AIR TRAFFIC SUPERVISOR Discharge Instructions forParacentesis Paracentesis is a procedure to remove extra fluid from your belly (abdomen). Thi s fluid buildup in the abdomen is calledascites. The procedure may have been d one to take a sample of the fluid. Or, it may have been done to drain the extra fluid from your abdomenand help make you more comfortable. Ascites is buildup of excess fluid in the abdomen. Home care If you have pain after the procedure, your healthcare provider can prescribe or recommend pain medicines. Take these exactly as directed. If you stopped taki ng other medicines before the procedure, ask your provider when you can start th em again. Take it easy for 24 hours after the procedure. Avoid physical activity until your provider says its OK. You will have a small bandage over the puncture site. Stitches (sutures), mau gical mario alberto, adhesive tapes, adhesive strips, or surgical glue may be used to close the incision. They also help stop bleeding and speed healing. You may take the bandage off in 24 hours. Check the puncture site for the signs of infection listed below. Follow-up care Make a follow-up appointment with your healthcare provider as directed. During y our follow-up visit, your provider will check your healing. Let your provider kn ow how you are feeling. You can also discuss the cause of your ascites and if yo u need any further treatment. When to seek medical advice Call your healthcare provider if you have any of the following after the procedu re: A fever of 100.4F (38.0C) or higher Trouble breathing Pain that doesn't go away even after taking pain medicine Belly pain not caused by having the skin punctured Bleeding from the puncture site More than a small amount of fluid leaking from the puncture site Swollen belly Signs of infection at the puncture site. These include increased pain, rednes s, or swelling, warmth, or bad-smelling drainage. Blood in your urine Feeling dizzy or lightheaded, or fainting Date Last Reviewed: 12/14/201519999042-4940 [employer]. [address] [place] [address] 7. All rights reserved. This information is not intended as a substitute for pro fessional medical care. Always follow your healthcare professional's instruction s. TRAFFIC SUPERVISOR documented in this encounter Medications at Time [...] 1 mg by 0 tablet mouth daily. zhfcrjrt-odliodtch-P-doug Take 500 mg 0 anese 500-400-2-0.33 mg [...] 31 with Insulin gauge x 5/16 syrg magnesium oxide (MAG-OX) Take 400 mg 0 [...] 6 hours as needed for Pain. 07/06/2018 08/24/2018 bumetanide (BUMEX) 1 mg Take one 180 tablet 3 tablet tablet by mouth twice daily. 10/08/2018 digoxin (LANOXIN) 125 mcg Take 125 mcg 0 tablet by mouth daily. 08/24/2018 levothyroxine (SYNTHROID) Take 200 mcg 0 200 mcg tablet by mouth daily 30 minutes before breakfast. 07/06/2018 11/30/2018 metoprolol tartrate Take one 180 tablet 3 (LOPRESSOR) 37.5 mg tablet by tablet mouth twice daily. 06/18/2018 09/30/2018 senna/docusate Take one 0 (SENOKOT-S) 8.6/50 mg tablet by tablet mouth at bedtime daily. 06/18/2018 09/30/2018 simethicone (MYLICON) 80 Chew one 30 tablet 0 mg chew tablet tablet by mouth every 6 hours as needed for Flatulence. 07/06/2018 08/24/2018 spironolactone Take one-half 45 tablet 3 (ALDACTONE) 25 mg tablet tablet by mouth daily. Take with food. documented as of this encounter H&P Notes * Wyatt Roa APRN-ALBA - 07/07/2018 10:13 AM AIR TRAFFIC SUPERVISOR Pre Procedure History and Physical/Sedation Plan Procedure Date: 07/07/2018 Planned Procedure(s): US guided paracentesis Indication for exam: Ascites Chief Complaint: Ascites Previous Anesthetic/Sedation History: Reviewed Allergies: Oxycontin [oxycodone]; Sulfa (sulfonamide antibiotics); Duricef [cef adroxil]; Pravastatin; and Simvastatin Medications: Scheduled Meds:Continuous Infusions: PRN and Respiratory Meds: Vital Signs: Last Filed Vital Signs: 24 Hour Range BP: 148/54 (07/06 1345) Pulse: 72 (07/06 1345) Height: 162.6 cm (64") (07/06 1345) BP: (148)/(54) Pulse: [72] Sedation/Medication Plan: Lidocaine Personal history of sedation complications: Denies adverse event. Family history of sedation complications: Denies adverse event. Medications for Reversal: None Discussion/Reviews: Physician has discussed risks and alternatives of this type of sedation and above planned procedures with patient NPO Status: Acceptable Airway: airway assessment performed Mallampati II (soft palate, uvula, fauces visible) Head and Neck: no abnormalities noted Mouth: no abnormalities noted Anesthesia Classification: ASA III (A patient with a severe systemic disease th at limits activity, but is not incapacitating) Status: Not Lab/Radiology/Other Diagnostic Tests Labs: Relevant labs reviewed I have examined the patient, and there are no significant changes in their condi tion, from the previous H&P performed on 07/06/18. 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) Chronic diastolic heart failure (HCC) Chronic gastrointestinal bleeding Essential hypertension Hyperlipidemia, unspecified hyperlipidemia type Type 2 diabetes mellitus with other circulatory complication, without long-term 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 (HCC) PERITONEAL FLUID TOTAL Routine 07/07/2018 Acute on chronic PROTEIN 11:47 AM AIR TRAFFIC SUPERVISOR diastolic heart failure due to coronary artery disease (HCC) DELROY (acute kidney injury) (HCC) 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) Chronic diastolic heart failure (HCC) Chronic gastrointestinal bleeding Essential hypertension Hyperlipidemia, unspecified hyperlipidemia type Type 2 diabetes mellitus with other circulatory complication, without long-term 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 (HCC) CELL COUNT W/DIFF-FLUIDS Routine 07/07/2018 Acute on chronic 11:47 AM AIR TRAFFIC SUPERVISOR diastolic heart failure due to coronary artery disease (HCC) DELROY (acute kidney injury) (HCC) 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 [facility] Finalized by Brody Lofton M.D. on 07/08/2018 9:22 AM. Dictated by Brody Lofton M.D. on 07/08/2018 9:22 AM. Narrative Performed At Ultrasound guided diagnostic and therapeutic paracentesis: [facility] History: Paracentesis, ascites. Technique and Findings: The risks and benefits of procedure were explained the patient beforehand, the patient was allowed to ask any questions at this time. Using ultrasound guidance, an appropriate insertion site in the right lower quadrant was marked. A hardcopy image of patients ascites was recorded. The patient was prepped and draped in the usual sterile fashion. Approximately 5 cc of lidocaine was used for local anesthesia. A Yueh paracentesis needle was inserted into the abdomen, with return of clear yellow fluid. Approximately 2000 ml of fluid was removed. The centesis catheter was then withdrawn. A sterile dressing was applied at the skin site. The patient tolerated the procedure well. The patient was then escorted from the department for continued care. A sample of ascites was sent to lab for further analysis. Sedation: No IV sedation was administered. Procedure Note Interface, Radiant Results - 07/08/2018 9:25 AM AIR TRAFFIC SUPERVISOR Ultrasound guided diagnostic and therapeutic paracentesis: History: Paracentesis, ascites. Technique and Findings: The risks and benefits of procedure were explained the patient beforehand, the patient was allowed to ask any questions at this time. Using ultrasound guidance, an appropriate insertion site in the right lower quadrant was marked. A hardcopy image of patients ascites was recorded. The patient was prepped and draped in the usual sterile fashion. Approximately 5 cc of lidocaine was used for local anesthesia. A Yueh paracentesis needle was inserted into the abdomen, with return of clear yellow fluid. Approximately 2000 ml of fluid was removed. The centesis catheter was then withdrawn. A sterile dressing was applied at the skin site. The patient tolerated the procedure well. The patient was then escorted from the department for continued care. A sample of ascites was sent to lab for further analysis. Sedation: No IV sedation was administered. IMPRESSION Successful diagnostic and therapeutic paracentesis as described. Finalized by Brody Lofton M.D. on 07/08/2018 9:22 AM. Dictated by Brody Lofton M.D. on 07/08/2018 9:22 AM. Performing Organization Address City/State/Zipcode Phone Number [facility] RES[facility] * PERITONEAL FLUID TOTAL PROTEIN (07/07/2018 11:47 AM AIR TRAFFIC SUPERVISOR) Peritoneal 2.0 g/dL [facility] Fluid Total Comment: Protein Ascites fluidtotal protein >1g/dL favors secondary bacterial peritonitis over spontaneous bacterial peritonitis Specimen Peritoneal Fluid Performing Organization Address City/[facility]/Zipcode Phone Number MAIN [facility] [address] [place] [address] * CELL COUNT W/DIFF-FLUIDS (07/07/2018 11:47 AM AIR TRAFFIC SUPERVISOR) White Blood 430 /UL [facility] Cells,Fluid Red Blood 18,840 /UL [facility] Cells,Fluid Segmented 15 % [facility] Neutrophils, Fluid Lymphocytes,Flu 41 % [facility] id Monocyte/Histo, 43 % [facility] Fluid Eosinophils, 1 % [facility] Fluid Fluid Source PERITONEAL FLUID [facility] Pathology HEMORRHAGIC FLUID [facility] Interpretation, Fluid Pathologist INTERPRETED BY JOSSE OREILLY [facility] Signature MDallin. By the PATH SIGNATURE ABOVE, I attest that I have personally formulated the final interpretation expressed in this report and that the above diagnosis is based upon my examination of the slides and/or other material indicated in this report. Specimen Fluid - Peritoneal Fluid Performing Organization Address [facility]/Zipcode Phone Number MAIN [facility] [address] [place] [address] * POC GLUCOSE (07/07/2018 11:29 AM AIR TRAFFIC SUPERVISOR) Glucose, POC 190 (H) 70 - 100 MG/DL [facility] Specimen Performing Organization Address [facility] Number [facility] [address] [place] [address] documented in this encounter Visit Diagnoses Diagnosis Acute on chronic diastolic heart failure due to coronary artery disease (HCC) DELROY (acute kidney injury) (HCC) Acute kidney failure, unspecified 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) Chronic diastolic heart failure (HCC) Chronic diastolic heart failure Chronic gastrointestinal bleeding Hemorrhage of gastrointestinal tract, unspecified Essential hypertension Unspecified essential hypertension Hyperlipidemia, unspecified hyperlipidemia type Type 2 diabetes mellitus with other circulatory complication, without long-term 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 (HCC) documented in this encounter Administered Medications Action Date Dose Rate Site Medication Order MAR Action 07/07/2018 12:07 PM AIR TRAFFIC SUPERVISOR 12.5 g albumin 25% injection 12.5 g Given - New 50 mL, 12.5 g, Intravenous, ONCE, 1 Bag dose, 07/07/18 at 1215 07/07/2018 12:18 PM AIR TRAFFIC SUPERVISOR 500 Units heparin lock flush PF syringe 500 Units Given 500 Units, Intra-catheter, ONCE, 1 dose, 07/07/18 at 1145, NOTE: This is a HIGH ALERT Medication., documented in this encounter
--- OUTSIDE RECORDS SUMMARY | 2018-12-27 16:08 | XMS REPORT | Encounter Summary ---
Author Author [facility] Organization [facility] Address Unknown Phone Unavailable Care Team Providers Care Process Worker Name Role Phone Carla Wilson MD PCP Naima Field MD Unavailable Winnie Jorge MD Unavailable Reason for Visit * Reason Comments Follow Up Encounter Details Care Team Description Date Type Department Oliverio Mcneil LPN Follow Up 07/13/2018 Telephone [facility] [address] [facility] [place] [id number] Social History Date Tobacco Use Types Packs/Day [...] Telephone Encounter - Oliverio Mcneil LPN - 07/13/2018 3:26 PM CEMENT MIXER DRIVER Received call from [facility] requesting OV note from Dr. garg be faxed to [phone]. Call back number . NT MIXER DRIVER documented in this encounter Plan of Treatment Not on filedocumented as of this encounter Visit Diagnoses Not on filedocumented in this encounter
--- OUTSIDE RECORDS SUMMARY | 2018-12-27 16:08 | XMS REPORT | Encounter Summary ---
Author Author [facility] Organization [facility] Address Unknown Phone Unavailable Care Team Providers Care Dental Chairside Assistant Name Role Phone Carla Wilson MD PCP Naima Field MD Unavailable Winnie Jorge MD Unavailable Encounter Details Care Team Description Date Type Department Lynette Diana MD [address] [facility] [place] [address] 07/07/2018 [facility] [address] [place], [place] [id number] Social History Date Tobacco Use Types Packs/Day [...] - sometimes documented as of this encounter Medications at [...] 1 mg by 0 tablet mouth daily. [id number] Take 500 mg 0 anese 500-400-2-0.33 mg [...] with food. 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) Chronic diastolic heart failure (HCC) Chronic gastrointestinal bleeding Essential hypertension Hyperlipidemia, unspecified hyperlipidemia type Type 2 diabetes mellitus with other circulatory complication, without long-term 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 (HCC) Hepatic cirrhosis, unspecified hepatic cirrhosis type, unspecified whether ascites present (HCC) US ABDOMEN COMPLETE Routine 07/07/2018 Acute on chronic 3:03 PM CHAIR FINISHER diastolic heart failure due to coronary artery disease (HCC) 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) Chronic diastolic heart failure (HCC) Chronic gastrointestinal bleeding Essential hypertension Hyperlipidemia, unspecified hyperlipidemia type Type 2 diabetes mellitus with other circulatory complication, without long-term 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 (HCC) Hepatic cirrhosis, unspecified hepatic cirrhosis type, unspecified whether ascites present (HCC) documented in this encounter Results * US DOPPLER ABD PELV RETROPER COMP (07/07/2018 3:03 PM CHAIR FINISHER) Specimen Impressions Performed At 1.Liver mildly enlarged and diffusely heterogeneous liver without evidence [facility] of focal hepatic mass. 2.Patent hepatic vasculature with normal direction of flow. 3.Portal hypertension as manifested by mild splenomegaly and trace abdominopelvic ascites. 4.Cholelithiasis. Gallbladder wall thickening, suspect secondary to hypoalbuminemia. Finalized by Edda Harden M.D. on 07/07/2018 3:15 PM. Dictated by Edda Harden M.D. on 07/07/2018 2:55 PM. Narrative Performed At Ultrasound of the abdomen with doppler. [facility] Clinical Indication: Cirrhosis. HCC screening. Technique: Multiple real-time grayscale sonographic images were obtained throughout the abdomen with additional color Doppler and duplex acquisitions. No prior studies are available for direct comparison. Findings: The right lobe of the liver measures 18.2 cm. The liver appears heterogeneous and micronodular. Discrete hepatic mass is not identified. There is no intrahepatic or extrahepatic biliary ductal dilatation. The extrahepatic common duct measures 0.4 cm. Multiple calculi are seen in the dependent portion of the gallbladder. The gallbladder wall is mildly thickened, likely related to hypoalbuminemia. There is trace pericholecystic fluid. The pancreas, where visualized, appears normal in size. It is partially obscured by overlying bowel gas. The right kidney measures 11.9 cm in length. The left kidney measures 11.6 cm in length. The kidneys are partially obscured by bowel gas. No hydronephrosis is identified. The bladder is decompressed. The spleen is mildly enlarged measuring 14.0 cm. There is mild abdominopelvic ascites noted. The abdominal aorta is not adequately seen to evaluate due to extensive overlying bowel gas. The main portal vein velocity is 21-27 cm/sec. The right portal vein velocity is 19 cm/sec. The left portal vein velocity is 13 cm/sec. The IVC has normal pulsatility and flow. The hepatic veins show normal hepatofugal flow with pulsatility. The resistive index of the proper hepatic artery is 0.79, compatible with patient's hepatocellular process. The splenic veinshows normal direction of flow at the hilum and in midline.. Procedure Note Interface, Radiant Results - 07/08/2018 1:00 PM CHAIR FINISHER Ultrasound of the abdomen with doppler. Clinical Indication: Cirrhosis. HCC screening. Technique: Multiple real-time grayscale sonographic images were obtained throughout the abdomen with additional color Doppler and duplex acquisitions. No prior studies are available for direct comparison. Findings: The right lobe of the liver measures 18.2 cm. The liver appears heterogeneous and micronodular. Discrete hepatic mass is not identified. There is no intrahepatic or extrahepatic biliary ductal dilatation. The extrahepatic common duct measures 0.4 cm. Multiple calculi are seen in the dependent portion of the gallbladder. The gallbladder wall is mildly thickened, likely related to hypoalbuminemia. There is trace pericholecystic fluid. The pancreas, where visualized, appears normal in size. It is partially obscured by overlying bowel gas. The right kidney measures 11.9 cm in length. The left kidney measures 11.6 cm in length. The kidneys are partially obscured by bowel gas. No hydronephrosis is identified. The bladder is decompressed. The spleen is mildly enlarged measuring 14.0 cm. There is mild abdominopelvic ascites noted. The abdominal aorta is not adequately seen to evaluate due to extensive overlying bowel gas. The main portal vein velocity is 21-27 cm/sec. The right portal vein velocity is 19 cm/sec. The left portal vein velocity is 13 cm/sec. The IVC has normal pulsatility and flow. The hepatic veins show normal hepatofugal flow with pulsatility. The resistive index of the proper hepatic artery is 0.79, compatible with patient's hepatocellular process. The splenic vein shows normal direction of flow at the hilum and in midline.. IMPRESSION 1. Liver mildly enlarged and diffusely heterogeneous liver without evidence of focal hepatic mass. 2. Patent hepatic vasculature with normal direction of flow. 3. Portal hypertension as manifested by mild splenomegaly and trace abdominopelvic ascites. 4. Cholelithiasis. Gallbladder wall thickening, suspect secondary to hypoalbuminemia. Finalized by Edda Harden M.D. on 07/07/2018 3:15 PM. Dictated by Edda Harden M.D. on 07/07/2018 2:55 PM. Performing Organization Address City/State/Zipcode Phone Number [facility] * US ABDOMEN COMPLETE (07/07/2018 3:03 PM CHAIR FINISHER) Specimen Impressions Performed At 1.Liver mildly enlarged and diffusely heterogeneous liver without evidence [facility] of focal hepatic mass. 2.Patent hepatic vasculature with normal direction of flow. 3.Portal hypertension as manifested by mild splenomegaly and trace abdominopelvic ascites. 4.Cholelithiasis. Gallbladder wall thickening, suspect secondary to hypoalbuminemia. Finalized by Edda Harden M.D. on 07/07/2018 3:15 PM. Dictated by Edda Harden M.D. on 07/07/2018 2:55 PM. Narrative Performed At Ultrasound of the abdomen with doppler. [facility] Clinical Indication: Cirrhosis. HCC screening. Technique: Multiple real-time grayscale sonographic images were obtained throughout the abdomen with additional color Doppler and duplex acquisitions. No prior studies are available for direct comparison. Findings: The right lobe of the liver measures 18.2 cm. The liver appears heterogeneous and micronodular. Discrete hepatic mass is not identified. There is no intrahepatic or extrahepatic biliary ductal dilatation. The extrahepatic common duct measures 0.4 cm. Multiple calculi are seen in the dependent portion of the gallbladder. The gallbladder wall is mildly thickened, likely related to hypoalbuminemia. There is trace pericholecystic fluid. The pancreas, where visualized, appears normal in size. It is partially obscured by overlying bowel gas. The right kidney measures 11.9 cm in length. The left kidney measures 11.6 cm in length. The kidneys are partially obscured by bowel gas. No hydronephrosis is identified. The bladder is decompressed. The spleen is mildly enlarged measuring 14.0 cm. There is mild abdominopelvic ascites noted. The abdominal aorta is not adequately seen to evaluate due to extensive overlying bowel gas. The main portal vein velocity is 21-27 cm/sec. The right portal vein velocity is 19 cm/sec. The left portal vein velocity is 13 cm/sec. The IVC has normal pulsatility and flow. The hepatic veins show normal hepatofugal flow with pulsatility. The resistive index of the proper hepatic artery is 0.79, compatible with patient's hepatocellular process. The splenic veinshows normal direction of flow at the hilum and in midline.. Procedure Note Interface, Radiant Results - 07/08/2018 1:00 PM CHAIR FINISHER Ultrasound of the abdomen with doppler. Clinical Indication: Cirrhosis. HCC screening. Technique: Multiple real-time grayscale sonographic images were obtained throughout the abdomen with additional color Doppler and duplex acquisitions. No prior studies are available for direct comparison. Findings: The right lobe of the liver measures 18.2 cm. The liver appears heterogeneous and micronodular. Discrete hepatic mass is not identified. There is no intrahepatic or extrahepatic biliary ductal dilatation. The extrahepatic common duct measures 0.4 cm. Multiple calculi are seen in the dependent portion of the gallbladder. The gallbladder wall is mildly thickened, likely related to hypoalbuminemia. There is trace pericholecystic fluid. The pancreas, where visualized, appears normal in size. It is partially obscured by overlying bowel gas. The right kidney measures 11.9 cm in length. The left kidney measures 11.6 cm in length. The kidneys are partially obscured by bowel gas. No hydronephrosis is identified. The bladder is decompressed. The spleen is mildly enlarged measuring 14.0 cm. There is mild abdominopelvic ascites noted. The abdominal aorta is not adequately seen to evaluate due to extensive overlying bowel gas. The main portal vein velocity is 21-27 cm/sec. The right portal vein velocity is 19 cm/sec. The left portal vein velocity is 13 cm/sec. The IVC has normal pulsatility and flow. The hepatic veins show normal hepatofugal flow with pulsatility. The resistive index of the proper hepatic artery is 0.79, compatible with patient's hepatocellular process. The splenic vein shows normal direction of flow at the hilum and in midline.. IMPRESSION 1. Liver mildly enlarged and diffusely heterogeneous liver without evidence of focal hepatic mass. 2. Patent hepatic vasculature with normal direction of flow. 3. Portal hypertension as manifested by mild splenomegaly and trace abdominopelvic ascites. 4. Cholelithiasis. Gallbladder wall thickening, suspect secondary to hypoalbuminemia. Finalized by Edda Harden M.D. on 07/07/2018 3:15 PM. Dictated by Edda Harden M.D. on 07/07/2018 2:55 PM. 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
--- OUTSIDE RECORDS SUMMARY | 2018-12-27 16:09 | XMS REPORT | Encounter Summary ---
Author Author [facility] Organization [facility] Address Unknown Phone Unavailable Care Team Providers Care Proof Sorter Name Role Phone Carla Wilson MD PCP Naima Field MD Unavailable Winnie Jorge MD Unavailable Encounter Details Care Team Description Date Type Department Usman Salazar MD 4000 [facility] [place] [address] 06/29/2018 Documentation The [facility] [address] [address] Social History Date Tobacco Use [...] encounter Progress Notes * Edy Sheridan - 06/29/2018 11:11 AM REVENUE FIELD AGENT Faxed request to [facility] office for imaging and procedure reports [phone] NUE FIELD AGENT documented in this encounter Plan of Treatment Not on filedocumented as of this encounter Visit Diagnoses Not on filedocumented in this encounter
--- OUTSIDE RECORDS SUMMARY | 2018-12-27 16:09 | XMS REPORT | Encounter Summary ---
Author Author [facility] Organization [facility] Address Unknown Phone Unavailable Care Team Providers Care Director Of Cardiology Service Line Name Role Phone Carla Wilson MD PCP Naima Field MD Unavailable Winnie Jorge MD Unavailable Emiliano Rodriguez APRN,PUBLIC ADMINISTRATION TEACHER-C 7 Encounter Details Care Team Description Date Type Department Lynette Diana MD 4000 [facility] [id number] [place] [address] GAVE (gastric antral vascular ectasia) (Primary Dx); Cirrhosis of liver without ascites, unspecified hepatic cirrhosis type (HCC) 07/01/2018 Prep for Case The 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
--- OUTSIDE RECORDS SUMMARY | 2018-12-27 16:09 | XMS REPORT | Encounter Summary ---
Author Author [facility] Organization [facility] Address Unknown Phone Unavailable Care Team Providers Care Pickle Maker Name Role Phone Carla Wilson MD PCP Naima Field MD Unavailable Winnie Jorge MD Unavailable Reason for Visit * Reason Comments New Patient CAD, A-fib, Heart failure Encounter Details Care Team Description Date Type Department Betty Myers RN New Patient (CAD, A-fib, Heart failure) 06/30/2018 Patient Profile The [facility] [address] [place] [address] Social History Date Tobacco Use Types Packs/Day [...]
--- OUTSIDE RECORDS SUMMARY | 2018-12-27 16:09 | XMS REPORT | Encounter Summary ---
Author Author [facility] Organization [facility] Address Unknown Phone Unavailable Care Team Providers Care Pest Control Service Representative Name Role Phone Carla Wilson MD PCP Naima Field MD Unavailable Winnie Jorge MD Unavailable Reason for Referral * Radiology Services (Routine) Referred By Contact Referred To Contact Status Reason Specialty Diagnoses / Procedures Lynette Diana MD [address] [place], [place] [id number] New Request Radiology Diagnoses Acute on chronic diastolic heart failure due to coronary artery disease (HCC) DELROY (acute kidney injury) (HCC) Coronary artery disease involving [place] coronary artery 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 pectoris (HCC) Chronic diastolic heart failure (HCC) Chronic gastrointestinal bleeding Essential hypertension Hyperlipidemia, unspecified hyperlipidemia type Type 2 diabetes mellitus with other circulatory complication, without long-term 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 (HCC) P rocedures CT ABDOMEN WO/W CONTRAST * Radiology Services (Routine) Referred By Contact Referred To Contact Status Reason Specialty Diagnoses / Procedures Lynette Diana MD [address] [place] [id number] [address] [address] [place] [address] No Auth Needed Radiology Diagnoses Acute on chronic diastolic heart failure due to coronary artery disease (HCC) DELROY (acute kidney injury) (HCC) Coronary artery disease involving [place] coronary artery 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 pectoris (HCC) Chronic diastolic heart failure (HCC) Chronic gastrointestinal bleeding Essential hypertension Hyperlipidemia, unspecified hyperlipidemia type Type 2 diabetes mellitus with other circulatory complication, without long-term 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 (HCC) P rocedures IR ASPIRATION/DRAIN IN ABDOM PARACENTESIS DX/THER W/IMAGING GUIDANCE Reason for Visit * Reason Comments Ascites * Consult, Test & Treat (Urgent) Referred By Contact Referred To Contact Status Reason Specialty Diagnoses / Procedures Dannielle Covington MD [address] [facility] [address] [place] [address] [facility] Gen Hepatology Cl [address] [phone] Authorized Specialty Services Hepatology Diagnoses Required Dyspnea, unspecified type Hepatic cirrhosis, unspecified hepatic cirrhosis type, unspecified whether ascites present (HCC) Esophageal varices without bleeding, unspecified esophageal varices type (HCC) GAVE (gastric antral vascular ectasia) Long's esophagus without dysplasia Anemia, unspecified type Encounter Details Care Team Description Date Type Department Lynette Diana MD 4000 [facility] [id number] [place], [place] [id number] Hepatic cirrhosis, unspecified hepatic cirrhosis type, unspecified whether ascites present (HCC) (Primary Dx); Acute on chronic diastolic heart failure due to coronary artery disease (HCC); DELROY (acute kidney injury) (HCC); Coronary artery disease involving [place] coronary artery 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 pectoris (HCC); Chronic diastolic heart failure (HCC); Chronic gastrointestinal bleeding; Essential hypertension; Hepatitis B infection without delta agent without hepatic coma, unspecified chronicity; Hyperlipidemia, unspecified hyperlipidemia type; Type 2 diabetes mellitus with other circulatory complication, without long-term 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 (HCC) 07/01/2018 Office Visit [facility] [address] [phone] Social History Date Tobacco Use [...] Signs Reading Time Taken Comments Vital Sign 152/60 07/01/2018 1:56 PM RESEARCH DEVELOPMENT DIRECTOR Blood Pressure 67 07/01/2018 1:56 PM RESEARCH DEVELOPMENT DIRECTOR Pulse 36.6 C (97.8 F) 07/01/2018 1:56 PM RESEARCH DEVELOPMENT DIRECTOR Temperature 18 07/01/2018 1:56 PM RESEARCH DEVELOPMENT DIRECTOR Respiratory Rate 97% 07/01/2018 1:56 PM RESEARCH DEVELOPMENT DIRECTOR Oxygen Saturation - - Inhaled Oxygen Concentration 121.6 kg (268 lb) 07/01/2018 1:56 PM RESEARCH DEVELOPMENT DIRECTOR Weight 162.6 cm (5' 4") 07/01/2018 1:56 PM RESEARCH DEVELOPMENT DIRECTOR Height 46 07/01/2018 1:56 PM RESEARCH DEVELOPMENT DIRECTOR Body Mass Index documented in this encounter [...] this encounter Patient Instructions * Patient Instructions* Glo Us, THOMPSON - 07/01/2018 1:40 PM RESEARCH DEVELOPMENT DIRECTOR Schedule: 1. Schedule 7-8 month follow up, gen hep, Dr. Diana 2. Have lab- CMP, INR- drawn today 3. Schedule Ct abdomen same day as follow up. 4. Schedule abdominal ultrasound- rickie. Patient Information: 1. Cirrhosis can have complications. You will need lab and imaging a minimum o f every 6 months, with EGD every 1-3 years depending on the results. The liver tries to regenerate itself- occasionally it make a wrong cell that can be cancer ous- early finding makes it easier to treat. 2. Recommend strict avoidance of medications such as narcotics, sedatives and s leep aids. Low dose Benadryl PRN or melatonin can be used for insomnia, if neede d. 3. You can take up to 2,000mg of Tylenol/ Acetaminophen per 24 hours. Avoid Na proxen, Ibuprofen, Alieve, and NSAIDs as these can cause you to retain fluid in your legs and abdomen. 4. Please call if you have any yellowing of the eyes or skin, swelling of the a bdomen or legs, or unusual confusion. These are signs of liver disease progress ing. 5. Start watching the amount of sodium/ salt in your diet. Your goal is no mor e than 2,000mg per day. Watch serving sizes and read labels carefully to includ e what you eat and drink. 6. Weight loss treatment is making a lifestyle change. The goal is to ensure y our calories in is less than calories out. Incorporate fresh vegetables for fib er to make you feel more full. Increase your water intake. General Instructions: How to reach us: Please send a [employer] message to the General Hepatology cl in or call [phone], option 2. How to get a medication refill: Please use the [facility] Refill request or [facility] to request medication refills. Please allow 48 hours . This clinic does not prescribe pain medications. How to receive your test results: If you have signed up for [employer], you meera l receive your test results and messages from me this way. Otherwise, you will get a phone call or letter. If you are expecting results and have not heard fr om my office within 2 weeks of your testing, please send a [employer] message or ca ll my office. Appointment Reminders on your cell phone: Make sure we have your cell phone n umber, and Text [facility] to [phone]. Support groups for many chronic illnesses are available through [facility]: t [email or web address] or [phone]. Thank you for allowing us to participate in your care. If you have any concerns , call , option 2. Your liver team is Lilo Medina APRN, Kimberly MSN, RN and Torri MCKEON. ARCH DEVELOPMENT DIRECTOR documented in this encounter Progress Notes * Lynette Diana MD - 07/01/2018 1:40 PM RESEARCH DEVELOPMENT DIRECTOR Date of Service: 07/01/2018 Subjective: Deborah Fields is a 63 y.o. female presenting for evaluation of ascites. History of Present Illness Deborah Fields is a 63 y.o. female with past medical history of morbid obesity BMI=43; HTN; HLP; IDDM2; CAD with prior PCI and s/p 4vCABG 02/2018; HFrEF 2/2 isc hemic CM EF 50; a fib s/p MAZE, off AC; and chronic blood loss anemia s/p EGD/co pola/VCE x 2, who is referred for above. She is accompanied by her niece to clinic today who is a nurse. Internal and out side records are reviewed. She has previously seen by our GI colleagues for anem ia as well. They are good historians. Patient reports first being told of possible liver disease several years ago whe n she was told that she had portal hypertension based on endoscopy. There is an outside CT scan available for review in 2016, which demonstrated cirrhosis with portal hypertension. She reports being re--told this after her most recent end oscopies here March 2018, at which time she underwent EGD/colon, revealing sma ll esophageal varices with question of Long's esophagus, GAVE, and PHG; and p oor prep of colon, portal colopathy, a fat flat lesion in the transverse colon, small polyp not removed, diverticulosis, and external hemorrhoids. She reports recurrent overt GI bleeding over the past 1-1/2 years, presenting with both brig ht red blood per rectum and melena. She reports receiving a total of 57 units o f blood over this time. She has had 2 recent admissions to [facility], in March and May. She was discharged from rehab only today. She was followed primarily by the heart failure service, and has undergone a total of 2 thoracentesis, but never paracentesis. She reports increasing abdominal distention. She does not have any updated imaging revealing ascites. She reports profound shortness of breath now with new oxygen requirement, stating that her oxygen saturation was 7 2% in 2 days prior to her visit. She reports being on Lasix monotherapy of 80 m g, with recent increase to 160 mg, given symptoms, at rehab. This has, however, been on hold for a few days secondary to renal function. Of note, she is addit ionally on digoxin (for HF vs a fib?). She brings most recent laboratory data f [facility] dated June 30, 2017 for our review: Sodium 136, potassium 4.9, creatinine 2.3, bilirubin 0.5, albumin 3.0. Her most recent echocardiogram was during recent admission and is reviewed. This was not performed with bubble study. She denies any other signs or symptoms referable to liver disease. Sp ecifically, she denies jaundice, pruritus, day-night reversal and episodes of co nfusion. No RF for HCV, including blood transfusion before 1989, unprofessionall y placed tattoos, IVDA, intranasal cocaine use, nor high risk sexual behavior. She has never undergone liver biopsy. She reports very rare alcohol use. Denies any history of significant alcohol us e. She quit using tobacco 35 years ago. 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 Grandfather is related to liver cancer, unknown if primary. Her father was known to be cirrhotic. Family history is significant additionally signific ant for a brother with rheumatoid arthritis. Past Medical History: Past Medical History: Diagnosis Date Acquired hypothyroidism Arthritis Back pain Bleeding disorder (HCC) CAD (coronary artery disease), [place] coronary artery 02/16/2018 Chronic diastolic heart failure (HCC) 03/31/2018 Coronary artery disease Diabetes mellitus (HCC) Type II Essential hypertension 02/23/2018 Hypertension Stomach disorder Vision decreased Surgical History: Past Surgical History: Procedure Laterality Date HX HEART CATHETERIZATION 2017 CORONARY STENT PLACEMENT 2016 CORONARY ARTERY BYPASS GRAFT N/A 02/16/2018 CORONARY ARTERY BYPASS WITH ARTERIAL GRAFT - 4 GRAFTS (Internal Mammary Artery and Endovascular Vein [place]) performed by Lance Pal MD at [facility] HX MAZE N/A 02/16/2018 MAZE PROCEDURE performed by Lance Pal MD at [facility] UPPER GASTROINTESTINAL ENDOSCOPY N/A 03/29/2018 ESOPHAGOGASTRODUODENOSCOPY performed by Dannielle Covington MD at ENDO/GI COLONOSCOPY N/A 04/07/2018 COLONOSCOPY performed by Skinny Marshall MD at ENDO/GI ANKLE SURGERY Left ankle reconstruction COLONOSCOPY HX KNEE ARTHROSCOPY Left HX TONSIL AND ADENOIDECTOMY TUBAL LIGATION UPPER GASTROINTESTINAL ENDOSCOPY Social History: Social History Socioeconomic History Marital status: Spouse [...] Social History Narrative Not on file Family History: Family History Problem Relation Age [...] Cancer Paternal Grandfather Review of Systems A complete 10 point review of systems was asked and answered in the negative unl ess specifically commented upon in the HPI Objective: No current outpatient medications on file. Vitals: 07/01/18 1356 BP: 152/60 Pulse: 67 Resp: 18 Temp: 36.6 C (97.8 F) TempSrc: Oral SpO2: 97% Weight: 121.6 kg (268 lb) Height: 162.6 cm (64") Body mass index is 46 kg/m. Physical Exam Vitals reviewed. Constitutional: Well-developed, well-nourished, in no apparent distress. HEENT: Normocephalic. No scleral icterus. Moist oral mucosa. Dentition fair Neck/Lymph: Normal ROM, supple. No thyromegaly. No lymphadenopathy Cardiac: Regular rate and rhythm. No overt murmurs Respiratory: Clear to auscultation bilaterally. No wheezes or rales GI: Abdomen obese, soft, non-distended, non-tender. BS present. possible shifti ng dullness vs body wall edema. Exam compromised by body habitus Skin: Skin is warm and dry. No rash noted. No jaundice. + spider nevi noted. No palmar erythema Peripheral Vascular: 1+ lower extremity edema. 2+ pulses in all extremities Musculoskeletal: ROM intact, borderline muscle bulk Psychiatric: Normal mood and affect. Behavior is normal. Neuro: No asterixis, no tremor Labs and Diagnostic tests: CBC w diff Lab Results Component Value Date/Time WBC 5.3 [...] PM GFRAA 34 (L) 07/01/2018 03:20 PM MELD-Na score: 14 at 07/01/2018 3:20 PM MELD score: 13 at 07/01/2018 3:20 PM Calculated from: Serum Creatinine: 1.84 MG/DL at 07/01/2018 3:20 PM Serum Sodium: 136 MMOL/L at 07/01/2018 3:20 PM Total Bilirubin: 0.6 MG/DL (Rounded to 1 MG/DL) at 07/01/2018 3:20 PM INR(ratio): 1.1 at 07/01/2018 3:20 PM Age: 62 years Imaging: No recent abdominal imaging Procedures: Liver biopsy: none EGD/colon 03/2018 as above Assessment and Plan: Cryptogenic cirrhosis: She is presumed cirrhotic, based on history, exam, labor atory, and imaging findings including endoscopy. She has never undergone liver b iopsy. She has had a negative serologic work up for other liver disease. Cirrhos is would be presumed 2/2 TANG with RF +/- cardiac. Most of her current symptoms are more likely related to decompensated HFrEF (EF 50-55 is NOT physiologically normal in cirrhotic state) and she seems relatively well compensated from a live r standpoint with normal liver function, with MELD driven by DELROY. - Updated MELD. - We did discuss the role of TJ liver bx. Bx is deferred for now. Liver Transplant Candidacy: deferred 2/2 low MELD. Should her MELD become compet itive or she develop transplant-defining conditions, however, she would currentl y not be an OLT candidate d/t co morbidities, including heart disease, morbid ob esity, and very limited functionally. This was discussed with patient and her fa renate. Hepatocellular Cancer Screening: due. - Doppler US. - Recommend hepatoma screening q6-12 months with either abdominal ultrasound or contrasted, cross-sectional imaging. Volume overload: It is unclear if she has ascites. Suspect pleural effusions ad ditionally related to HF. Her O2 requirement is likely also related to HF/volume status, but should r/o component of hepatopulmonary syndrome/lung complications of liver disease. Diuretic use currently limited by Cr. - Repeat Cr today. - Diagnostic paracentesis, if able. - Echo bubble study. - If cardiorenal, would favor more aggressive diuresis. 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 Hepatic Encephalopathy: none. - Recommend strict avoidance of medications such as narcotics, sedatives and sle ep aids. Low dose Benadryl PRN or melatonin can be used for insomnia, if needed. Esophageal Varices: small EV EGD 03/2018. - Recommend repeating an upper GI endoscopy 1-2 years from variceal surveillance standpoint. Chronic blood loss anemia: multiple sources of possible blood loss on most recen t endoscopies. - Per pt and niece request, I will perform repeat EGD with APC. - She is in need of repeat colon due to poor prep with noted polyp. Kidney Health: A on CKD related to diuretic use vs cardiorenal. - Plan as above. - All patients with liver disease should avoid the use of Non-steroidal Anti-Inf lammatory (NSAID) medications as they can cause significant injury to the kidney s in this population. Immobility/Frailty: she is quite frail after repeated admissions, discharged fro m rehab only today. Now with O2 requirement and very limited functionally. Nutrition: As with most patients with chronic liver disease, there is a degree of protein m alnutrition. She is at the same time morbidly obese. Dicussed need to change tary habits to improve overall protein balance. Discussed the importance of eat ing between 1.2-1.5g/kg/day lean protein such as plant-based proteins (soy, legu mes, nuts), dairy-based proteins (cheese, milk, yogurt), white meat chicken or p ork, fish, and eggs. Continue to follow a sodium restricted (<2g sodium diet), heart-healthy, Mediterranean style diet. It is best to minimize the intake of carbohydrates and sugars, to avoid obesity. - Strongly encourage protein supplements 2-3 times daily (Boost, Ensure, Carnati on Instant Milk, etc.) between meals, or 5-6 times daily for meal replacement, t o meet protein and caloric intake. - Recommend a bedtime snack with protein and complex carbohydrate to minimize ri sk of muscle catabolism overnight. Routine Health Care in Patient with Chronic Liver Disease: - Hep A unknown. She is noted to have prior exposure to HBV (+cAb) with high tit er Ab. If she should ever be placed on IS or chemotherapy, including highest ris k B cell depleting agents, she should be placed on antiviral prophylaxis. - All patients with liver disease are at an increased risk for osteoporosis. We strongly recommend screening for Vitamin D deficiency with aggressive supplemen tation/replacement, as indicated. Screening for all fat soluble vitamin deficien cies should be performed in those patients with cholestatic liver disease. - Baseline DEXA scan should be performed to evaluate for decreased bone mineral density. If present, Ca/Vit D +/- bisphosphonate therapy should be considered.Fo llow up DEXA scans shall be based on prior scans as well as therapies. It is not uncommon for our patients to be referred to an Ski Patroller/bone health spec ialist. - The preferred analgesic in cirrhosis and liver disease is Tylenol, up to 2g da masood. - Recommend age appropriate vaccination including yearly influenza and Pneumovax prior to OLT in cirrhotic patients. Follow Up: 6 mos Labs today: CBC, MELD Imaging/biopsy: Diagnostic para Doppler US TTE bubble study Triple phase CT as renal function allows at 6mos CV Procedures: EGD/colon Thank you very much for the opportunity to participate in the care of this patie nt. If you have any further questions, please don't hesitate to contact our off ice. Lynette Diana MD [employer]ger Machine Helpersewing machines salesperson [facility] Liver Trans[facility] ARCH DEVELOPMENT DIRECTOR documented in this encounter Plan of Treatment Order Schedule Name Type Priority Associated Diagnoses Expected: 12/29/2018 (Approximate), Expires: 07/01/2019 CT ABDOMEN WO/W CONTRAST Imaging Routine Acute on chronic diastolic heart failure due to coronary artery disease (HCC) DELROY (acute kidney injury) (HCC) Coronary artery disease involving [place] coronary artery 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 pectoris (HCC) Chronic diastolic heart failure (HCC) Chronic gastrointestinal bleeding Essential hypertension Hyperlipidemia, unspecified hyperlipidemia type Type 2 diabetes mellitus with other circulatory complication, without long-term 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 (HCC) documented as of this encounter Results * US DOPPLER ABD PELV RETROPER COMP (07/07/2018 3:03 PM RESEARCH DEVELOPMENT DIRECTOR) Specimen Impressions Performed At 1.Liver mildly enlarged [...] Interface, Radiant Results - 07/08/2018 1:00 PM RESEARCH DEVELOPMENT DIRECTOR Ultrasound of the abdomen with doppler. Clinical [...] * US ABDOMEN COMPLETE (07/07/2018 3:03 PM RESEARCH DEVELOPMENT DIRECTOR) Specimen Impressions Performed At 1.Liver mildly enlarged [...] Interface, Radiant Results - 07/08/2018 1:00 PM RESEARCH DEVELOPMENT DIRECTOR Ultrasound of the abdomen with doppler. Clinical [...] Number [facility] RAD RESULTS * IR ASPIRATION/DRAIN (07/07/2018 12:02 PM RESEARCH DEVELOPMENT DIRECTOR) Specimen Impressions Performed At Successful diagnostic and [...] Interface, Radiant Results - 07/08/2018 9:25 AM RESEARCH DEVELOPMENT DIRECTOR Ultrasound guided diagnostic and therapeutic paracentesis: History: [...] Address City/State/Zipcode Phone Number RAD RESULTS * PROTIME INR (PT) (07/01/2018 3:20 PM RESEARCH DEVELOPMENT DIRECTOR) Pathologist [facility] INR 1.1 0.8 - 1.2 MAIN LAB Specimen Blood Performing Organization Address [facility]/Zipcode Phone Number [facility] [address] [place] [address] * COMPREHENSIVE METABOLIC PANEL (07/01/2018 3:20 PM RESEARCH DEVELOPMENT DIRECTOR) Pathologist [facility] Sodium 136 (L) 137 - 147 MMOL/L [facility] Potassium 4.3 3.5 - 5.1 MMOL/L [facility] Chloride 95 (L) 98 - 110 MMOL/L [facility] Glucose 99 70 - 100 MG/DL [facility] Blood Urea 28 (H) 7 - 25 MG/DL [facility] Nitrogen Creatinine 1.84 (H) 0.4 - 1.00 MG/DL [facility] Calcium 9.5 8.5 - 10.6 MG/DL [facility] Total Protein 7.1 6.0 - 8.0 G/DL [facility] Total Bilirubin 0.6 0.3 - 1.2 MG/DL [facility] Albumin 3.3 (L) 3.5 - 5.0 G/DL [facility] Alk Phosphatase 56 25 - 110 U/L [facility] AST (SGOT) 23 7 - 40 U/L [facility] CO2 36 (H) 21 - 30 MMOL/L [facility] ALT (SGPT) 9 7 - 56 U/L [facility] Anion Gap 5 3 - 12 MAIN LAB eGFR Non 28 (L) >60 mL/min MAIN LAB Comment: [place] The eGFR is not validated for use in drug dosing adjustments.Continue to use estimated creatinine clearance per dosing reference text.Please contact the Clinical Pharmacist for questions. eGFR 34 (L) >60 mL/min MAIN LAB [place] Comment: The eGFR is not validated for use in drug dosing adjustments.Continue to use estimated creatinine clearance per dosing reference text.Please contact the Clinical Pharmacist for questions. Specimen Blood Performing Organization Address [facility]/Zipcode Phone Number MAIN LAB [address] [place] [address] * CBC AND DIFF (07/01/2018 3:20 PM RESEARCH DEVELOPMENT DIRECTOR) White Blood 5.3 4.5 - 11.0 K/UL [facility] Cells RBC 3.33 (L) 4.0 - 5.0 M/UL [facility] Hemoglobin 9.8 (L) 12.0 - 15.0 GM/DL [facility] Hematocrit 30.3 (L) 36 - 45 % [facility] MCV 91.1 80 - 100 FL [facility] MCH 29.6 26 - 34 PG [facility] MCHC 32.4 32.0 - 36.0 G/DL [facility] RDW 17.8 (H) 11 - 15 % [facility] Platelet Count 170 150 - 400 K/UL [facility] MPV 8.0 7 - 11 FL [facility] Neutrophils 72 41 - 77 % [facility] Lymphocytes 13 (L) 24 - 44 % [facility] Monocytes 12 4 - 12 % [facility] Eosinophils 3 0 - 5 % [facility] Basophils 0 0 - 2 % [facility] Absolute 3.80 1.8 - 7.0 K/UL [facility] Neutrophil Count Absolute Lymph 0.70 (L) 1.0 - 4.8 K/UL [facility] Count Absolute 0.60 0 - 0.80 K/UL [facility] Monocyte Count Absolute 0.20 0 - 0.45 K/UL [facility] Eosinophil Count Absolute 0.00 0 - 0.20 K/UL [facility] Basophil Count Specimen Blood Performing Organization Address City/State/Zipcode Phone Number [facility] [address] [place] [address] documented in this encounter Visit Diagnoses Diagnosis Hepatic cirrhosis, unspecified hepatic cirrhosis type, unspecified whether ascites present (HCC) - Primary Acute on chronic diastolic heart failure due to coronary artery disease (HCC) DELROY (acute kidney injury) (HCC) Acute kidney failure, unspecified Coronary artery disease involving [place] coronary artery 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 pectoris (HCC) Chronic diastolic heart failure (HCC) Chronic diastolic heart failure Chronic gastrointestinal bleeding Hemorrhage of gastrointestinal tract, unspecified Essential hypertension Unspecified essential hypertension Hepatitis B infection without delta agent without hepatic coma, unspecified chronicity Hyperlipidemia, unspecified hyperlipidemia type Type 2 diabetes mellitus with other circulatory complication, without long-term 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 (HCC) documented in this encounter
--- OUTSIDE RECORDS SUMMARY | 2018-12-27 16:09 | XMS REPORT | Encounter Summary ---
Author Author [facility] Organization [facility] Address Unknown Phone Unavailable Care Team Providers Care Rn Internal Medicine Name Role Phone Carla Wilson MD PCP Naima Field MD Unavailable Winnie Jorge MD Unavailable Emiliano Rodriguez APRN,DRAPERY AND UPHOLSTERY ESTIMATOR-C 7 Encounter Details Care Team Description Date Type Department Elvia Magallon RN 07/06/2018 Pre/Post [facility] Radiology [address] [address] Social History Date Tobacco Use Types Packs/Day [...] as of this encounter Progress Notes * Elvia Magallon RN - 07/06/2018 9:55 AM HR ADMINISTRATOR Interventional Radiology Outpatient Scheduling Checklist 1. Procedure: Paracentesis 2. Date of Procedure: 07/07/18 3. Arrival Time: 1000 4. Procedure Time: 1100 5. Correct Procedural Room Assignment: [facility] 6. Blood Thinners Triaged and instructed per protocol: N/A 7. Order Verified: Yes 8. Patient informed regarding procedure: Yes 9. Patient instructed to have a tractor driver: Yes 10. Patient instructed on NPO status: NA 11. Specimen needed: Y/N: Yes 12. Allergies Verified: Y/N: Yes 13. Iodine Allergy: Y/N: If yes and receiving Iodine has the patient been pre medicated: Y/N: No 14. Does the patient have labs according to IR procedural policy: Y/N: Yes 15. Will the patient need to be admitted/possible admission: Y/N: NA 16. If YES to possible admission has the patient been instructed: Y/N: NA 17. Patient States Understanding: Y/N Yes 18. Hx VICKI: Y/N: Pt instructed to bring PAP Machine: NA ADMINISTRATOR documented in this encounter Plan of Treatment Not on filedocumented as of this encounter Visit Diagnoses Not on filedocumented in this encounter
--- OUTSIDE RECORDS SUMMARY | 2018-12-27 16:09 | XMS REPORT | Encounter Summary ---
Author Author [facility] Organization [facility] Address Unknown Phone Unavailable Care Team Providers Care Laborer [facility] Name Role Phone Carla Wilson MD PCP Naima Field MD Unavailable Winnie Jorge MD Unavailable Reason for Referral * (Routine) Referred By Contact Referred To Contact Status Reason Specialty Diagnoses / Procedures Felisa nSeed MD [address] [place] [address] New Request Procedures REQUEST FOR CARDIOLOGY APPOINTMENT Reason for Visit * Reason Comments Post-hospital Follow Up Atrial fibrillation Heart Failure * Consult, Test & Treat (Routine) Referred By Contact Referred To Contact Status Reason Specialty Diagnoses / Procedures Felisa Sneed MD [address] [place], [place] [id number] [facility] [address] [place] [address] Closed Cardiology Procedures CARDIOLOGY HEART FAILURE FOLLOW UP APPOINTMENT REQUEST Encounter Details Care Team Description Date Type Department Felisa Sneed MD [address] [place] [address] [phone] Post-hospital Follow Up; Atrial fibrillation; Heart Failure 07/06/2018 Office Visit [facility] [address] [place] [address] [address] [place] [address] Social History Date Tobacco Use Types Packs/Day [...] Signs Reading Time Taken Comments Vital Sign 148/54 07/06/2018 1:45 PM BUSINESS PLANNER Blood Pressure 72 07/06/2018 1:45 PM BUSINESS PLANNER Pulse - - Temperature - - Respiratory Rate - - Oxygen Saturation - - Inhaled Oxygen Concentration 114.7 kg (252 lb 14.4 oz) 07/06/2018 1:45 PM BUSINESS PLANNER Weight 162.6 cm (5' 4") 07/06/2018 1:45 PM BUSINESS PLANNER Height 43.41 07/06/2018 1:45 PM BUSINESS PLANNER Body Mass Index documented in this encounter [...] this encounter Patient Instructions * Patient Instructions* Clary Martins RN - 07/06/2018 2:00 PM BUSINESS PLANNER Medication changes: STOP taking lasix. START taking Bumex 1 mg twice a day. START taking spironolactone 12.5mg daily. Metoprolol dose CHANGE to 37.5 mg twice a day. Please check labs in one week. Dr. Sneed will follow up with you in 1-2 months NESS PLANNER documented in this encounter Progress Notes * Felisa Sneed MD - 07/06/2018 2:00 PM BUSINESS PLANNER Date of Service: 07/06/2018 Deborah Fields is a 63 y.o. female. HPI Ms. Fields is a 63 y.o. female who comes to heart failure clinic to see me timmy hall a complicated prolonged day from mid May through June 18 for septi c shock and multiorgan failure encephalopathy, respiratory failure, acute kidney injury and atrial flutter with rapid ventricular response all thought secondary to HCAP and E. coli UTI. She did require mechanical ventilation and vasopressor therapy. She has a port which was placed due to difficult IV access. I follow her for her chronic diastolic heart failure, hypertension, and paroxysmal atrial fibrillation and flutter. She also has coronary disease and is status post CABG in February 2018 where she had a PRIDE to LAD and saphenous grafts to the obtuse marginal, left posterolateral, and posterior descending branch of the right coronary artery. She has had critical anemia and GI bleeding in the past as we ll which has limited her ability to be on anticoagulation. She was treated with diuresis and antibiotic. She was able to be extubated relatively quickly. Her heart rate was controlled with Cardizem. Due to her extensive deconditioning s he was discharged to rehab. She has had a cough since discharge but no fever. She states she has been feeling better since her hospital discharge. She is fin ally beginning to sleep a little bit better. Diuretics were held towards the en d of her hospital stay. Her dry weight is around 245, and she gained perhaps 50 lb of fluid in the setting of sepsis. Now her weight is back down to 252. She is now back home from rehab, and slowly getting stronger. She has a persis tent hypoxia with exertion. She is now on 2 L of oxygen at home and states that while her sats are 95% at rest, does go down to the 70s with exertion and rehab. She has occasional chest pain that is not exertional, did have some chest discom fort while on cardizem in the hospital associated with low blood pressure and he art rate. She currently denies exertional chest pain. She does have occasional irregular heartbeat/palpitations with fast fluttering, and she can't always tell when she is in atrial fib. She does have dizzy spells with lightheadedness but does ok if she takes her time. Denies syncope/near syncope. She has had impr ovement in her edema, has stable 2 pilow orthopnea, and has no PND. 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 Vitals: 07/06/18 1345 Weight: 114.7 kg (252 lb 14.4 oz) Height: 1.626 m (5' 4") Body mass index is 43.41 kg/m. Past Medical History Patient Active Problem List Diagnosis Date Noted Morbid obesity ([facility]) 06/01/2018 Acute on chronic diastolic heart failure due to coronary artery disease ([facility] ) 03/31/2018 Chronic diastolic heart failure ([facility]) 03/31/2018 Long's esophagus 03/30/2018 Left leg cellulitis 03/29/2018 Pleural effusion on left 03/26/2018 Essential hypertension 02/23/2018 DELROY (acute kidney injury) ([facility]) 02/18/2018 CAD (coronary artery disease), [place] coronary artery 02/16/2018 02/16/18: CABG x4 (PRIDE [...] present on pulmonary function testing 02/16/2018 Thrombocytopenia ([facility]) 02/16/2018 Junctional rhythm 02/16/2018 Type 2 diabetes mellitus with circulatory disorder, 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 Eyes: Positive for pain and redness. Cardiovascular: Positive for chest pain, claudication, dyspnea on exertion, irre gular heartbeat, leg swelling, orthopnea and paroxysmal nocturnal dyspnea. Respiratory: Positive for cough, shortness of breath, sleep disturbances due to breathing and snoring. Endocrine: Positive for cold intolerance. Hematologic/Lymphatic: Positive for bleeding problem. Bruises/bleeds easily. Skin: Positive for dry skin and unusual hair distribution. Musculoskeletal: Positive for arthritis, back pain, falls, joint pain, joint swe lling, muscle weakness and myalgias. Gastrointestinal: Positive for bloating, abdominal pain, anorexia, change in bow el habit, constipation, diarrhea, heartburn, hematochezia, hemorrhoids, nausea a nd vomiting. Neurological: Positive for aphonia, difficulty with concentration, disturbances in coordination, excessive daytime sleepiness, dizziness, focal weakness, headac hes, light-headedness and loss of balance. Psychiatric/Behavioral: Positive for depression and memory loss. The patient has insomnia and is nervous/anxious. Allergic/Immunologic: Positive for environmental allergies. Physical Exam BP 148/54 (BP Source: Arm, Left Upper;Arm, Left Lower) | Pulse 72 | Ht 1.626 m (5' 4") | Wt 114.7 kg (252 lb 14.4 oz) | BMI 43.41 kg/m BP Readings from Last 3 Encounters: 07/06/18 148/54 07/01/18 152/60 06/18/18 146/75 Pulse Readings from Last 3 Encounters: 07/06/18 72 07/01/18 67 06/18/18 88 Wt Readings from Last 3 Encounters: 07/06/18 114.7 kg (252 lb 14.4 oz) [...] of motion and muscular tone. She exhibits 2+ BLE e jame or tenderness. Neurological: She is alert and [...] TSH 1.990 06/01/2018 10:00 PM Cardiovascular Studies TODD and echo. EKG is sinus rhythm at 72 bpm with normal axis and intervals. She has n onspecific T wave abnormalities. She had borderline low voltage in the limb zay ds. Problems Addressed Today Encounter Diagnoses Name Primary? Coronary artery disease involving [place] coronary artery of [place] heart wit h angina pectoris (HCC) Yes Chronic diastolic heart failure (HCC) PAF (paroxysmal atrial fibrillation) ([facility]) NSTEMI (non-ST elevated myocardial infarction) ([facility]) Assessment and Plan Ms. Fields is a 63-year-old lady with chronic diastolic heart failure, paroxysma l atrial fibrillation, coronary artery disease status post CABG [facility]. She is warm and close to euvolemia with kidney function in flux but still above her dry weight. For her heart failure with preserved ejection fraction, chronic diastolic heart failure I will have her stop Lasix and initiate Bumex 1 mg p.o. twice daily. I will initiate spironolactone 12.5 milligrams p.o. Daily. I will change her metoprolol to 37.5 mg p.o. twice daily For her paroxysmal atrial fibrillation she remains rate controlled on beta-block ers and digoxin. On balance going forward we will avoid blood thinners, despite some SETH flow residual but in honesty with all of her GI issues and history of requiring multiple transfusions she is willing to accept a little bit of an incr eased stroke risk in order to avoid hospitalization for transfusion. For her coronary disease she is not having angina. Will continue BP meds and av oid aspirin due to extensive bleeding and statin due to intolerance. Her LDL is reasonably controlled. Will check labs in one week; return to see me in 1-2 months. Thank you for allowing me to participate in the care of this patient. Please do not hesitate to contact me should you have any questions or concerns. Felisa Sneed MD, PhD Pager [phone] Current Medications (including today's revisions) bumetanide (BUMEX) [...] tablet Take 1 mg by mouth daily. pqvgfjhh-yybbyiqjs-N-manganese 500-400-2-0.33 mg cap Take 500 mg by [...] four times daily with Insulin levothyroxine (SYNTHROID) 200 mcg tablet Take 200 mcg by mouth daily 30 ana carmelita [...] 6 hours as nee ded for Pain. NESS PLANNER documented in this encounter Plan of Treatment Order Schedule Name Type Priority Associated Diagnoses Ordered: 07/06/2018 ECG 12-LEAD ECG Routine Coronary artery disease involving [place] coronary artery 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 pectoris (HCC) Chronic diastolic heart failure (HCC) Expected: 07/13/2018 (Approximate), Expires: 07/06/2019 DIGOXIN LEVEL Lab Routine Coronary artery disease involving [place] coronary artery 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 pectoris (HCC) Chronic diastolic heart failure (HCC) Expected: 07/13/2018 (Approximate), Expires: 07/06/2019 BASIC METABOLIC PANEL Lab Routine Coronary artery disease involving [place] coronary artery 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 pectoris (HCC) Chronic diastolic heart failure (HCC) Expected: 07/13/2018 (Approximate), Expires: 07/06/2019 MAGNESIUM Lab Routine Coronary artery disease involving [place] coronary artery 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 pectoris (HCC) Chronic diastolic heart failure (HCC) documented as of this encounter Procedures Comments Procedure Name Priority Date/Time Associated Diagnosis ECG-SCAN 07/06/2018 12:00 AM BUSINESS PLANNER documented in this encounter Results * ECG-SCAN (07/06/2018 12:00 AM BUSINESS PLANNER) Narrative Performed At Ordered by an unspecified provider. documented in this encounter Visit Diagnoses Diagnosis Coronary artery disease involving [place] coronary artery 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 pectoris (HCC) - Primary Chronic diastolic heart failure (HCC) Chronic diastolic heart failure PAF (paroxysmal atrial fibrillation) ([facility]) Atrial fibrillation NSTEMI (non-ST elevated myocardial infarction) ([facility]) Acute myocardial infarction, subendocardial infarction, episode of care unspecified documented in this encounter
--- OUTSIDE RECORDS SUMMARY | 2018-12-27 16:09 | XMS REPORT | Encounter Summary ---
Author Author [facility] Organization [facility] Address Unknown Phone Unavailable Care Team Providers Care Hand Cooper Helper Name Role Phone Carla Wilson MD PCP Naima Field MD Unavailable Winnie Jorge MD Unavailable Encounter Details Care Team Description Date Type Department Lynette Diana MD [address] [facility] [place], [place] [id number] Acute on chronic diastolic (congestive) heart failure (HCC) 07/01/2018 Hospital [facility] Encounter [facility] [address] [address] Social History Date Tobacco Use Types Packs/Day [...] 1 mg by 0 tablet mouth daily. erjashkh-uootkzufp-Q-doug Take 500 mg 0 anese 500-400-2-0.33 mg [...] mcg 0 tablet by mouth daily. 06/18/2018 07/06/2018 furosemide (LASIX) 80 mg Take one 90 tablet 3 tablet tablet by mouth every morning. 08/24/2018 levothyroxine (SYNTHROID) Take 200 mcg 0 200 mcg tablet by mouth daily 30 minutes before breakfast. 06/18/2018 07/06/2018 metoprolol tartrate Take one 60 tablet 1 (LOPRESSOR) 50 mg tablet tablet by mouth twice daily. This is a reduced dose from what you were taking previously 06/18/2018 09/30/2018 senna/docusate Take one 0 (SENOKOT-S) 8.6/50 mg tablet by tablet mouth at bedtime daily. 06/18/2018 09/30/2018 simethicone (MYLICON) 80 Chew one 30 tablet 0 mg chew tablet tablet by mouth every 6 hours as needed for Flatulence. documented as of this encounter Plan of Treatment Not on filedocumented as of this encounter Procedures Comments Procedure Name Priority Date/Time Associated Diagnosis PROTIME INR (PT) Routine 07/01/2018 Hepatic cirrhosis, 3:20 PM SALES COMPENSATION ANALYST unspecified hepatic cirrhosis type, unspecified whether ascites present (HCC) CBC AND DIFF Routine 07/01/2018 Acute on chronic 3:20 PM SALES COMPENSATION ANALYST diastolic heart failure due to coronary artery disease (HCC) DELROY (acute kidney injury) (HCC) Coronary artery disease involving [place] coronary artery of [place] heart with angina pectoris (HCC) Chronic diastolic heart failure (HCC) Chronic gastrointestinal bleeding Essential hypertension Hyperlipidemia, unspecified hyperlipidemia type Type 2 diabetes mellitus with other circulatory complication, without long-term 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 (HCC) COMPREHENSIVE METABOLIC Routine 07/01/2018 Acute on chronic PANEL 3:20 PM SALES COMPENSATION ANALYST diastolic heart failure due to coronary artery disease (HCC) DELROY (acute kidney injury) (HCC) Coronary artery disease involving [place] coronary artery of [place] heart with angina pectoris (HCC) Chronic diastolic heart failure (HCC) Chronic gastrointestinal bleeding Essential hypertension Hyperlipidemia, unspecified hyperlipidemia type Type 2 diabetes mellitus with other circulatory complication, without long-term 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 (HCC) documented in this encounter Results * CBC AND DIFF (07/01/2018 3:20 PM SALES COMPENSATION ANALYST) White Blood 5.3 4.5 - 11.0 K/UL [...] Basophil Count Specimen Blood Performing Organization Address City/[facility]/Zipcode Phone Number MAIN LAB [address] [place] [address] * PROTIME INR (PT) (07/01/2018 3:20 PM SALES COMPENSATION ANALYST) INR 1.1 0.8 - 1.2 [facility] Specimen Blood Performing Organization Address [facility]/Zipcode Phone Number MAIN LAB [address] [place] [address] * COMPREHENSIVE METABOLIC PANEL (07/01/2018 3:20 PM SALES COMPENSATION ANALYST) Sodium 136 (L) 137 - 147 MMOL/L [...] (L) >60 mL/min [facility] Comment: [place] The eGFR is not validated for use in drug dosing adjustments.Continue to use estimated creatinine clearance per dosing reference text.Please contact the Clinical Pharmacist for questions. eGFR 34 (L) >60 mL/min [facility] [place] Comment: The eGFR is not validated for use in drug dosing adjustments.Continue to use estimated creatinine clearance per dosing reference text.Please contact the Clinical Pharmacist for questions. Specimen Blood Performing Organization Address City/State/Zipcode Phone Number MAIN LAB [address] [place] [address] documented in this encounter Visit Diagnoses Diagnosis Acute on chronic diastolic heart failure due to coronary artery disease (HCC) DELROY (acute kidney injury) (HCC) Acute kidney failure, unspecified Coronary artery disease involving [place] coronary artery of [place] heart with angina pectoris (HCC) Chronic diastolic heart failure (HCC) Chronic diastolic heart failure Chronic gastrointestinal bleeding Hemorrhage of gastrointestinal tract, unspecified Essential hypertension Unspecified essential hypertension Hyperlipidemia, unspecified hyperlipidemia type Type 2 diabetes mellitus with other circulatory complication, without long-term 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 (HCC) Hepatic cirrhosis, unspecified hepatic cirrhosis type, unspecified whether ascites present (HCC) Dyspnea, unspecified type Esophageal varices without bleeding, unspecified esophageal varices type (HCC) GAVE (gastric antral vascular ectasia) Angiodysplasia of stomach and duodenum (without mention of hemorrhage) Long's esophagus without dysplasia Long's esophagus Anemia, unspecified type documented in this encounter
--- OUTSIDE RECORDS SUMMARY | 2018-12-27 16:10 | XMS REPORT ---
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 Active 632641518 Problem Coronary artery disease involving ute coronary artery of ute heart without angina pectoris I25.10 Active 8781277706010 Problem Non-insulin dependent type 2 diabetes mellitus E11.9 Active 15378590 Problem Acquired hypothyroidism E03.9 Active 486100679 Problem Essential hypertension I10 Active 15717092 Problem Angina pectoris syndrome I20.9 Active 511416624 Problem Persistent atrial fibrillation I48.1 Active 322792595 Problem Reflux gastritis K29.60 Active 26336281 Problem Mixed hyperlipidemia E78.2 Active 075228399 Problem 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 Active 528774669 Problem Oxygen dependent Z99.81 Active 507051880614 Problem Psoriasis L40.9 Active 5653878 Problem Type 2 diabetes mellitus with other circulatory complications E11.59 Active 60576043 Problem Chronic kidney disease, stage III (moderate) N18.3 Active 596732637 Problem Microcytic anemia D50.9 Active 303701567 Problem S/P CABG x 4 Z95.1 Active 458585888 Problem Congestive heart failure, unspecified HF chronicity, unspecified heart failure type I50.9 Active 38948026 Problem emt intermediate 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 Z79.4 Active 271575614 Problem Typical atrial flutter I48.3 Active 689542975 Problem Type 2 diabetes mellitus with other specified complication E11.69 Active 16514277 ALLERGIES No Information ENCOUNTERS Encounter Location Date Diagnosis [facility] [address] [facility] [id number] [address] Nov, [facility] [id number], [place] [address] 30 Oct, 2018 Sepsis, unspecified organism A41.9 ; Acute kidney failure, unspecified N17.9 ; Chronic kidney disease, stage III (moderate) N18.3 ; Transfusion- dependent 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 ; Persistent atrial fibrillation I48.1 ; Delirium R41.0 and Acute cystitis with hematuria N30.01 [place] [id number] [place] [address] October, [facility] [id number] [place] [address] October, [facility] [id number] [place] [address] October, [facility] [id number] [place] [address] October, Type 2 diabetes mellitus with other specified complication E11.69 [facility] [place] [id number] [place] [address] October, Type 2 diabetes mellitus with other specified complication E11.69 [facility] [place] [id number] [place] [address] Sep, [facility] [id number] [place] [address] Aug, Acquired hypothyroidism E03.9 [facility] [id number] [place] [address] Aug, [facility] [id number] [place] [address] Aug, [facility] [id number] [place] [address] Jul, Acquired hypothyroidism E03.9 [facility] [id number] [place] [address] Jul, [facility] [id number] [place] [address] 14 Jul, 2018 [place] [address] [address] 14 Jul, 2018 [facility] [place] [id number] [place] [address] 13 Jul, 2018 S/P CABG x 4 Z95.1 [facility] [id number] [place] [address] Jun, 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 ; Oxygen dependent Z99.81 ; Shortness of breath R06.02 ; Hypoxia R09.02 ; Coronary artery disease involving ute coronary artery of ute heart without angina pectoris I25.10 ; Hepatic cirrhosis, unspecified hepatic cirrhosis type, unspecified whether ascites present K74.60 and Pleural effusion J90 [facility] [place] [id number] [place] [address] Jun, Congestive heart failure, unspecified HF chronicity, unspecified heart failure type I50.9 ; Type 2 diabetes mellitus with other circulatory complications E11.59 and S/P CABG x 4 Z95.1 [place] [address] [place] [address] Jun, [facility] [place] [id number] [place] [address] Jun, [place] [address] [place] [address] May, [facility] [place] [id number] [place] [address] Apr, Non-intractable cyclical vomiting with nausea G43.A0 [facility] [id number] [place] [address] Apr, Coronary artery disease involving ute coronary artery of ute heart without angina pectoris I25.10 ; Non-intractable cyclical vomiting with nausea G43.A0 ; Encounter for immunization Z23 ; Microcytic anemia D50.9 ; S/P CABG x 4 Z95.1 and BMI 40.0-44.9, adult Z68.41 [facility] [id number] [place] [address] Apr, [facility] [id number] [place] [address] Apr, [facility] [id number] [place] [address] Apr, Essential hypertension I10 ; S/P CABG (coronary artery bypass graft) Z95.1 ; Non-insulin dependent type 2 diabetes mellitus E11.9 ; Coronary artery disease involving ute coronary artery of ute heart without angina pectoris I25.10 ; 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 ; Persistent atrial fibrillation I48.1 and BMI 40.0-44.9, adult Z68.41 [place] [address] [address] Mar, [place] [address] [address] Mar, [facility] [address] [address] Mar, Pain in left leg M79.605 and BMI 40.0-44.9, adult Z68.41 [facility] [id number] [place] [address] 17 Feb, 2018 S/P CABG x 4 Z95.1 ; 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 ; Typical atrial flutter I48.3 ; Candidiasis of mouth B37.0 ; Vaginal candidiasis B37.3 ; Type 2 diabetes mellitus with other specified complication E11.69 and detention 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 Z79.4 [facility] [id number] [place] [address] Jan, [facility] [place] [id number] [place] [address] Jan, [place] [address] [address] Jan, [facility] [place] [id number] [place] [address] Jan, Non-insulin treated type 2 diabetes mellitus E11.9 ; Essential hypertension I10 ; Microcytic anemia D50.9 ; Persistent atrial fibrillation I48.1 and BMI 40.0-44.9, adult Z68.41 [facility] [id number] [place] [address] Jan, [facility] [place] [id number] [place] [address] Dec, [facility] [place] [id number] [place] [address] Dec, Acquired hypothyroidism E03.9 [facility] [place] [id number] [place] [address] Dec, [place] [address] [address] Dec, [facility] [id number] [place] [address] Nov, Lower abdominal pain R10.30 and BMI 45.0-49.9, adult Z68.42 [facility] [id number] [place] [address] Nov, BMI 45.0-49.9, adult Z68.42 [facility] [place] [id number] [place] [address] October, Congestive heart failure, unspecified HF chronicity, unspecified heart failure type I50.9 ; Acquired hypothyroidism E03.9 and BMI 45.0-49.9, adult Z68.42 [facility] [id number] [place] [address] October, Shortness of breath R06.02 [place] [id number] [place] [address] October, [facility] [id number] [place] [address] October, [facility] [id number] [place] [address] October, Essential hypertension I10 ; Coronary artery disease involving ute coronary artery of ute heart without angina pectoris I25.10 ; Angina pectoris syndrome I20.9 ; 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 and Persistent atrial fibrillation I48.1 [facility] [id number] [place] [address] 18 Sep, 2017 Coronary artery disease involving ute coronary artery of ute heart without angina pectoris I25.10 [facility] [id number] [place] [address] Sep, [place] [id number] [place] [address] Sep, Angina pectoris syndrome I20.9 ; Paroxysmal atrial fibrillation I48.0 ; Microcytic anemia D50.9 ; 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 and 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 [facility] [place] [id number] [place] [address] Aug, Non-insulin dependent type 2 diabetes mellitus E11.9 ; Microcytic anemia D50.9 ; Essential hypertension I10 and Acquired hypothyroidism E03.9 [place] [id number] [place] [address] Jul, [place] [id number] [place] [address] Jul, [place] [id number] [place] [address] Jun, [place] [id number] [place] [address] May, [facility] [id number] [place] [address] May, History of anemia Z86.[address] [address] May, [address] [address] May, [address] [address] May, Non-insulin treated type 2 diabetes mellitus E11.[address] [address] Apr, Abdominal pain, left upper quadrant R10.12 ; Essential hypertension I10 ; Non-intractable cyclical vomiting with nausea G43.A0 ; Microcytic anemia D50.9 ; Mixed hyperlipidemia E78.2 and BMI 45.0-49.9, adult Z68.[address] [address] Apr, [address] [address] Apr, Non-insulin treated type 2 diabetes mellitus E11.9 ; Essential hypertension I10 and Acquired hypothyroidism E03.[address] [address] Mar, Encounter for immunization Z23 [address] [address] Mar, [address] [address] Feb, Microcytic anemia D50.9 ; Pain of left great toe M79.675 and Reflux gastritis K29.[address] [address] 05 Feb, 2017 Coronary artery disease involving ute coronary artery of ute heart without angina pectoris I25.10 and Acquired hypothyroidism E03.[address] [address] Jan, Psoriasis L40.9 ; Paroxysmal atrial fibrillation I48.0 ; Shortness of breath R06.02 and Microcytic anemia D50.9 [facility] [id number] [place] [address] Dec, [facility] [id number] [place] [address] Dec, [facility] [id number] [place] [address] Dec, Coronary artery disease involving ute coronary artery of ute heart without angina pectoris I25.10 [place] [id number] [place] [address] Nov, Therapeutic drug monitoring Z51.81 ; Essential hypertension I10 ; Microcytic anemia D50.9 and Shortness of breath R06.02 [facility] [id number] [place] [address] Nov, Acquired hypothyroidism E03.9 [place] [id number] [place] [address] October, [place] [id number] [place] [address] Sep, Coronary artery disease involving ute coronary artery of ute heart without angina pectoris I25.10 [place] [address], [place] [address] Aug, [facility] [id number] [place] [address] Aug, Essential hypertension I10 [place] [id number] [place] [address] Jul, Acquired hypothyroidism E03.9 ; Essential hypertension I10 ; Non- insulin treated type 2 diabetes mellitus E11.9 and Coronary artery disease involving ute coronary artery of ute heart without angina pectoris I25.10 [place] [id number] [place] [address] Jul, [facility] [id number] [address] 15 Jul, 2016 Angina pectoris syndrome I20.9 and Essential hypertension I10 [facility] [address] [address] 03 Jul, 2016 [place] [address] [place] [address] Jun, [facility] [address] [place] [address] May, Abscess L02.91 [id number] [place] [address] 22 Apr, 2016 Non-insulin dependent type 2 diabetes mellitus E11.9 ; Essential hypertension I10 ; Acquired hypothyroidism E03.9 ; History of anemia Z86.2 and Coronary artery disease involving ute coronary artery of ute heart without angina pectoris I25.10 [facility] [address] [address] 14 Apr, 2016 IMMUNIZATIONS No Known Immunizations SOCIAL HISTORY Never Assessed REASON FOR VISIT Test strips PLAN OF CARE VITAL SIGNS MEDICATIONS Medication Instructions Dosage Frequency Start Date End Date Duration Status Glucocard Expression Test - In Vitro 2 times a day as directed 12h 14 Aug, 2018 Active RESULTS No Results PROCEDURES No Known [...] History Atrial Fibrillation January 2017 Hospitalization History [place] 09/30 Hospitalization History [facility] for lasix and blood products 08/09/17 Hospitalization History Blood/blood products 11/2017
--- NOTE | 2018-12-27 16:19 | ED General ---
General Chief Complaint: Cardiac/General Problems Stated Complaint: LOW BP Nursing Triage Note: PT TO [facility] WITH CC OF HYPOTENSION. PT WAS GIVEN 1 LITER OF NS AT [facility], TYPE AND CROSS HAS BEEN DONE WITH ONE UNIT READY BUT WAITING TO GIVE IT DUE TO HEART CONDITION. Nursing Sepsis Screen: No Definite Risk Source of Information: Patient Exam Limitations: No Limitations History of Present Illness Date Seen by Provider: Dec 27, 2018 Time Seen by Provider: 16:17 Initial Comments ER per wheelchair from the [facility]. 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 She has several antibodies so blood transfusions/crossmatching are time consuming. Her hemoglobin today is actually a bit better than usual at 8.1. However she was noted by staff to be very lethargic, falling asleep immediately after conversation and sometimes even during conversation. She was noted be hypotensive at 75/[address] Haywood evaluated her in the cancer center, I gave 1 L fluid bolus over 1 hour, blood pressure increased only slightly to 80/40. Upon arrival to ER patient is a bit more alert. Timing/Duration: 1-2 Days Severity: Moderate Associated Systoms: Weakness Allergies and Home Medications Allergies Coded Allergies: Xdukxjf-Zzw-Qag Reductase Inhibitor (Verified Allergy, Intermediate, GI UPSET, N/V, 11/06/17) cefadroxil (Unverified Allergy, Mild, 01/01/17) Sulfa (Sulfonamide Antibiotics) (Verified Allergy, Unknown, 06/18/18) Home Medications Acetaminophen 325 Mg Tablet, 325 MG PO Q4H PRN for PAIN-MILD, (Reported) Bumetanide 1 Mg Tablet, 1 MG PO DAILY, (Reported) Cefdinir 300 Mg Capsule, 300 MG PO BID Prescribed by: MICHELLE GARCIA on 11/06/18 1250 Cetirizine HCl 10 Mg Tablet, 10 MG PO DAILY, (Reported) Digoxin 125 Mcg Tablet, 125 MCG PO DAILY, (Reported) Diphenhydramine HCl 25 Mg Capsule, 25 MG PO Q6H PRN for ALLERGIES, (Reported) Folic Acid 1 Mg Tablet, 1 MG PO DAILY, (Reported) Insulin NPH Human Isophane 100 Unit/1 Ml Vial, 14 UNIT SQ DAILY, (Reported) Levothyroxine Sodium 175 Mcg Tablet, 175 MCG PO DAILY, (Reported) Magnesium Oxide 400 Mg Tablet, 400 MG PO BID, (Reported) Metoprolol Tartrate 25 Mg Tablet, 37.5 MG PO BID, (Reported) TAKES 1 & 1/2 (25MG) TABLET Nitroglycerin 0.4 Mg Tab.subl, 0.4 MG SL UD PRN for CHEST PAIN, (Reported) Omeprazole 40 Mg Capsule.dr, 40 MG PO BID, (Reported) Ondansetron HCl 8 Mg Tablet, 8 MG PO DAILY PRN for NAUSEA/VOMITING-1ST LINE, (Reported) Potassium Chloride 20 Meq Tablet.er, 20 MEQ PO BID, (Reported) Sennosides/Docusate Sodium 1 Each Tablet, 1 TAB PO HS PRN for CONSTIPATION-5TH LINE, (Reported) Tizanidine HCl 4 Mg Tablet, 4 MG PO TID PRN for MUSCLE SPASMS, (Reported) Tramadol HCl 50 Mg Tablet, 50 MG PO TID PRN for PAIN-MODERATE, (Reported) Patient Home Medication List Home Medication List Reviewed: Yes Review of Systems Review of Systems Constitutional: see HPI EENTM: see HPI Respiratory: no symptoms reported Cardiovascular: no symptoms reported Genitourinary: no symptoms reported Musculoskeletal: no symptoms reported Skin: no symptoms reported Psychiatric/Neurological: No Symptoms Reported Hematologic/Lymphatic: No Symptoms Reported Immunological/Allergic: no symptoms reported Past Mauswpk-Yhmktd-Cidmfj Hx Patient Social History Alcohol Use: Denies Use Recreational Drug Use: No Smoking Status: Former Smoker Type Used: Cigarettes Former Smoker, Quit: May 20, 1980 Recent Foreign Travel: No Contact w/Someone Who Travel: No Recent Infectious Disease Expo: No Recent Hopitalizations: No Physical Abuse: No Sexual Abuse: No Mistreated: No Fear: No Immunizations Up To Date Tetanus Booster (TDap): Unknown PED Vaccines UTD: Yes Date of Pneumonia Vaccine: Jun 23, 2016 Date of Influenza Vaccine: May 18, 2018 Seasonal Allergies Seasonal Allergies: Yes Past Medical History Surgeries: Yes Adenoidectomy, Cardiac, CABG, Coronary Stent, Open Heart Surgery, Orthopedic, Tonsillectomy, Tubal Ligation Respiratory: Yes (LEFT PLEURAL EFFUSION) Sleep Apnea Currently Using CPAP: No Currently Using BIPAP: No Cardiac: Yes (CHF, STENT X1; CABG 02/16/2018 x 4 @ [facility]) Atrial Fibrillation, Chronic Edema/Swelling, Coronary Artery Disease, Heart Attack, High Cholesterol, Hypertension Neurological: Yes Reproductive Disorders: No Female Reproductive Disorders: Denies 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 Sexually Transmitted Disease: No HIV/AIDS: No Genitourinary: Yes Renal Failure Gastrointestinal: Yes (GAVE) Gastroesophageal Reflux, Gastrointestinal Bleed, Diverticulosis, Hemorrhoids, Polyps Musculoskeletal: Yes (POOR AMBULATION--USES WALKER SINCE CABG) Degenerate Disk Disease, Arthritis, Chronic Back Pain, Fractures Endocrine: Yes Diabetes, Insulin dep HEENT: No Loss of Vision: Denies Hearing Impairment: Denies Cancer: No Psychosocial: No Anxiety Integumentary: Yes Psoriasis Blood Disorders: Yes (acute anemia) Adverse Reaction/Blood Tranf: Yes (Antibody JKA) Family Medical History Arthritis G8 BROTHER Completed stroke 19 MOTHER FH: anemia 19 MOTHER FH: lupus G8 SISTER FH: throat cancer 19 FATHER Hypertension G8 SISTER Myocardial infarction 19 MOTHER Thyroid disease 19 MOTHER G8 SISTER Hypertension, Stroke, Other Conditions/Hx Physical Exam Vital Signs Vital Signs - First Documented 12/27/18 15:58 Temp 97.4 Pulse 52 Resp 18 B/P (MAP) 75/23 (40) Pulse Ox 95 O2 Delivery Room Air Capillary Refill : Less Than 3 Seconds Height, Weight, BMI Height: 5'4.00" Weight: 184lbs. 0.8oz. 83.074081es; 31.2 BMI Method:Stated General Appearance: No Apparent Distress, WD/WN Eyes: Bilateral Eye Normal Inspection, Bilateral Eye PERRL, Bilateral Eye EOMI Respiratory: No Accessory Muscle Use, No Respiratory Distress Gastrointestinal: Normal Bowel Sounds, Non Tender, Soft Extremity: Normal Capillary Refill, Normal Inspection Neurologic/Psychiatric: Alert, Oriented x3, Other (she is able to carry on a conversation with me. Has a blood pressure of 95/43. ) Skin: Normal Color, Warm/Dry Focused Exam Lactate Level 12/27/18 16:04: Lactic Acid Level 2.86*H Lactic Acid Level Laboratory Tests Test 12/27/18 16:04 Lactic Acid Level 2.86 MMOL/L (0.50-2.00) *H Procedures/Interventions Date of ETT Placement: May 30, 2018 Time of ETT Placement: 1330 Progress/Results/Core Measures Suspected Sepsis Recent Fever Within 48 Hours: No Infection Criteria Present: None New/Unexplained Altered Menta: No Sepsis Screen: No Definite Risk SIRS Temperature:97.4 Pulse: 52 Respiratory Rate: 18 Laboratory Tests 12/27/18 16:04: White Blood Count 4.7 Blood Pressure 75 /23 Mean: 40 12/27/18 16:04: Lactic Acid Level 2.86*H Laboratory Tests 12/27/18 16:04: Creatinine 2.91H, INR Comment 1.1, Platelet Count 128L, Total Bilirubin 0.5 Results/Orders Lab Results Laboratory Tests Test 12/27/18 16:04 12/27/18 16:07 12/27/18 16:54 12/27/18 17:10 Range/Units White Blood Count 4.7 4.3-11.0 10^3/uL Red Blood Count 2.43 L 4.35-5.85 10^6/uL Hemoglobin 7.4 L 11.5-16.0 G/DL Hematocrit 23 L 35-52 % Mean Corpuscular Volume 93 80-99 FL Mean Corpuscular Hemoglobin 30 25-34 PG Mean Corpuscular Hemoglobin Concent 33 32-36 G/DL Red Cell Distribution Width 16.7 H 10.0-14.5 % Platelet Count 128 L 130-400 10^3/uL Mean Platelet Volume 10.6 H 7.4-10.4 FL Neutrophils (%) (Auto) 69 42-75 % Lymphocytes (%) (Auto) 18 12-44 % Monocytes (%) (Auto) 9 0-12 % Eosinophils (%) (Auto) 3 0-10 % Basophils (%) (Auto) 0 0-10 % Neutrophils # (Auto) 3.2 1.8-7.8 X 10^3 Lymphocytes # (Auto) 0.9 L 1.0-4.0 X 10^3 Monocytes # (Auto) 0.4 0.0-1.0 X 10^3 Eosinophils # (Auto) 0.2 0.0-0.3 10^3/uL Basophils # (Auto) 0.0 0.0-0.1 10^3/uL Prothrombin Time 15.1 H 12.2-14.7 SEC INR Comment 1.1 0.8-1.4 Activated Partial Thromboplast Time 30 24-35 SEC Sodium Level 128 L 135-145 MMOL/L Potassium Level 5.7 H 3.6-5.0 MMOL/L Chloride Level 98 98-107 MMOL/L Carbon Dioxide Level 20 L 21-32 MMOL/L Anion Gap 10 5-14 MMOL/L Blood Urea Nitrogen 36 H 7-18 MG/DL Creatinine 2.91 H 0.60-1.30 MG/DL Estimat Glomerular Filtration Rate 16 BUN/Creatinine Ratio 12 Glucose Level 690 *H 70-105 MG/DL Lactic Acid Level 2.86 *H 0.50-2.00 MMOL/L Calcium Level 8.9 8.5-10.1 MG/DL Corrected Calcium 9.5 8.5-10.1 MG/DL Total Bilirubin 0.5 0.1-1.0 MG/DL Aspartate Amino Transf (AST/SGOT) 18 5-34 U/L Alanine Aminotransferase (ALT/SGPT) 9 0-55 U/L Alkaline Phosphatase 61 40-136 U/L Troponin I < 0.028 <0.028 NG/ML Total Protein 6.4 6.4-8.2 GM/DL Albumin 3.2 3.2-4.5 GM/DL B-Type Natriuretic Peptide 419.2 H <100.0 PG/ML Blood Gas Puncture Site R RAD Blood Gas Patient Temperature 97.6 Arterial Blood pH 7.40 7.37-7.43 Arterial Blood Partial Pressure CO2 38 35-45 MMHG Arterial Blood Partial Pressure O2 72 L 79-93 MMHG Arterial Blood HCO3 23 23-27 MMOL/L Arterial Blood Total CO2 24.4 21.0-31.0 MMOL/L Arterial Blood Oxygen Saturation 97 94-100 % Arterial Blood Base Excess -1.1 -2.5-2.5 MMOL/L Osvaldo Test YES-POS Blood Gas Ventilator Setting NA Blood Gas Inspired Oxygen UNKNOWN Urine Color YELLOW Urine Clarity VERY CLOUDY H Urine pH 6 5-9 Urine Specific Jennings 1.015 L 1.016-1.022 Urine Protein 1+ H NEGATIVE Urine Glucose (UA) 4+ H NEGATIVE Urine Ketones NEGATIVE NEGATIVE Urine Nitrite NEGATIVE NEGATIVE Urine Bilirubin NEGATIVE NEGATIVE Urine Urobilinogen NORMAL NORMAL MG/DL Urine Leukocyte Esterase 2+ H NEGATIVE Urine RBC (Auto) 1+ H NEGATIVE Urine RBC 0-2 /HPF Urine WBC 25-50 H /HPF Urine Squamous Epithelial Cells 5-10 /HPF Urine Crystals NONE /LPF Urine Bacteria LARGE H /HPF Urine Casts NONE /LPF Urine Mucus NEGATIVE /LPF Urine Culture Indicated CULTURE PENDING My Orders Orders - MALLORIE FATIMA PEARL PELLER Cbc With Automated Diff (12/27/18 16:14) Comprehensive Metabolic Panel (12/27/18 16:14) Blood Culture (12/27/18 16:14) Sputum Culture (12/27/18 16:14) Urinalysis (12/27/18 16:14) Urine Culture (12/27/18 16:14) Protime With Inr (12/27/18 16:14) Partial Thromboplastin Time (12/27/18 16:14) Chest 1 View, Ap/Pa Only (12/27/18 16:14) Ed Iv/Invasive Line Start (12/27/18 16:14) Ed Iv/Invasive Line Start (12/27/18 16:14) Vital Signs Adult Sepsis Patie Q15M (12/27/18 16:14) O2 (12/27/18 16:14) Remove Rings In Anticipation O (12/27/18 16:14) Lactic Acid Analyzer (12/27/18 16:14) Troponin I (12/27/18 16:15) BNP (12/27/18 16:27) Arterial Blood Gas (12/27/18 16:27) Insulin (Regular) Human (Humulin R (Per (12/27/18 16:45) Insulin Regular Tpn/Drip Only (Humulin R (12/27/18 16:45) Ns Iv 500 Ml (Sodium Chloride 0.9%) (12/27/18 16:45) Norepinephrine (Levophed) (12/27/18 18:00) Vital Signs/I&O 12/27/18 15:58 Temp 97.4 Pulse 52 Resp 18 B/P (MAP) 75/23 (40) Pulse Ox 95 O2 Delivery Room Air Capillary Refill : Less Than 3 Seconds Blood Pressure Mean: 40 Diagnostic Imaging Diagonstic Imaging: Xray Plain Films/CT/US/NM/MRI: chest Comments NAME: YOLETTE PISANO MED REC#: [id number] PT STATUS: REG ER : 1955 PHYSICIAN: MALLORIE FATIMA APRN ADMIT DATE: 12/27/18/ER Draft Date of Exam:12/27/18 CHEST 1 VIEW, AP/PA ONLY INDICATION: Hypotension EXAM: Portable chest at 4:32 PM FINDINGS: There are postop changes from median sternotomy. Right IJ Port-A-Cath tip projects over the right innominate vein. There is left basilar atelectasis. IMPRESSION: Left basilar atelectasis. This is improved compared to 11/06/2018. Dictated on workstation # [id number] Dict: 12/27/18 1640 Trans: 12/27/18 1642 [facility] [id number] Interpreted by: OBEY AYALA MD Electronically signed by: Departure Communication (Admissions) Time/Spoke to Admitting Phy: 17:[address] Garcia, will admit to ICU on an insulin drip, consult Dr. Ania Snow and Dr. Haywood. Time/Spoke to Consulting Phy: 17:[address] Jorge. Has seen the patient here in the emergency room. I also discussed the case with Dr. Haywood. Agrees with use of Levaquin for UTI coverage, transfuse 1 unit of packed red cells tonight as she becomes very symptomatic at less than 8, hemoglobin. 1753-she's been given 1 L of fluids by the cancer center, 500 cc normal saline by us. Blood pressure is 73 systolic. She does have a [place]. We'll start levo fed. I'm hesitant to give much more fluids with her cardiac history. She had a CABG in February 2018 and will likely also need blood transfusion during this admission Impression Primary Impression: HHNC (hyperglycemic hyperosmolar nonketotic coma) Additional Impressions: Acute kidney injury superimposed on chronic kidney disease UTI (urinary tract infection) Qualified Codes: N30.00 - Acute cystitis without hematuria GAVE (gastric antral vascular ectasia) Disposition: ADMITTED INPATIENT Condition: Critical Admissions Decision to Admit Reason: Admit from ER (General) Decision to Admit/Date: Dec 27, 2018 Time/Decision to Admit Time: 17:55 Departure-Patient Inst. Referrals: JAMES TORRES MD (PCP/Family) Primary Care Physician MALLORIE FATIMA APRN Dec 27, 2018 16:19
[2018-12-27 16:22] LABS: BASOPHILS % (AUTO) 0 % (0-10); EOSINOPHILS # (AUTO) 0.2 10^3/uL (0.0-0.3); EOSINOPHILS % (AUTO) 3 % (0-10); HEMATOCRIT 23 % (35-52); HEMOGLOBIN 7.4 G/DL (11.5-16.0); LYMPHOCYTES # (AUTO) 0.9 X 10^3 (1.0-4.0); LYMPHOCYTES % (AUTO) 18 % (12-44); MEAN CORPUSCULAR HGB CONC 33 G/DL (32-36); MEAN CORPUSCULAR VOLUME 93 FL (80-99); MEAN PLATELET VOLUME 10.6 FL (7.4-10.4); MONOCYTES # (AUTO) 0.4 X 10^3 (0.0-1.0); MONOCYTES % (AUTO) 9 % (0-12); NEUTROPHILS # (AUTO) 3.2 X 10^3 (1.8-7.8); NEUTROPHILS % (AUTO) 69 % (42-75); PLATELET COUNT 128 10^3/uL (130-400); RED CELL DISTRIBUTION WIDTH 16.7 % (10.0-14.5); WHITE BLOOD COUNT 4.7 10^3/uL (4.3-11.0)
[2018-12-27 16:23] LABS: MEAN CORPUSCULAR HEMOGLOBIN 30 PG (25-34)
[2018-12-27 16:34] LABS: INR 1.1 (0.8-1.4); PROTHROMBIN TIME PATIENT 15.1 SEC (12.2-14.7)
[2018-12-27 16:36] LABS: ALANINE AMINOTRANSFERASE 9 U/L (0-55); ALBUMIN 3.2 GM/DL (3.2-4.5); ALKALINE PHOSPHATASE 61 U/L (40-136); BILIRUBIN,TOTAL 0.5 MG/DL (0.1-1.0); BUN/CREATININE RATIO 12; CALCIUM 8.9 MG/DL (8.5-10.1); CARBON DIOXIDE 20 MMOL/L (21-32); CHLORIDE 98 MMOL/L (98-107); CREATININE SERUM 2.91 MG/DL (0.60-1.30); GFR ESTIMATED 16; POTASSIUM 5.7 MMOL/L (3.6-5.0); SODIUM 128 MMOL/L (135-145); TOTAL PROTEIN 6.4 GM/DL (6.4-8.2)
[2018-12-27 16:39] LABS: GLUCOSE 690 MG/DL (70-105)
--- NOTE | 2018-12-27 16:43 | Diagnostic Imaging Report ---
INDICATION: Hypotension EXAM: Portable chest at 4:32 PM FINDINGS: There are postop changes from median sternotomy. Right IJ Port-A-Cath tip projects over the right innominate vein. There is left basilar atelectasis. IMPRESSION: Left basilar atelectasis. This is improved compared to 11/06/2018. Dictated by: Dictated on workstation # [id number]
[2018-12-27] MEDS ORDERED: inSUlin (REGULAR) HUMAN 1 UNIT/0.01 ML (CHARGE PER UNIT) IV SCH (16:45)
[2018-12-27] MEDS ORDERED: inSUlin REGULAR TPN/DRIP ONLY 250 UNITS in NORMAL SALINE 250 ML IV SCH ×2 (16:45→20:30)
[2018-12-27] MEDS ORDERED: NS IV 500 ML 500 ML IV SCH ×2 (16:45→20:30)
[2018-12-27 16:59] LABS: ABG BASE EXCESS -1.1 MMOL/L (-2.5-2.5); ABG OXYGEN SATURATION 97 % (94-100); ABG PCO2 38 MMHG (35-45); ABG PO2 72 MMHG (79-93); ABG TCO2 24.4 MMOL/L (21.0-31.0); ALLENS TEST YES-POS; PATIENT TEMP 97.6
[2018-12-27 17:20] LABS: BILIRUBIN,URINE NEGATIVE (NEGATIVE); CLARITY,URINE VERY CLOUDY; COLOR,URINE YELLOW; GLUCOSE, URINE (UA) 4+ (NEGATIVE); KETONES,URINE NEGATIVE (NEGATIVE); LEUKOCYTE ESTERASE ,URINE 2+ (NEGATIVE); NITRITE,URINE NEGATIVE (NEGATIVE); PH,URINE 6 (5-9); PROTEIN,URINE 1+ (NEGATIVE); UROBILINOGEN,URINE NORMAL (NORMAL)
[2018-12-27 17:27] LABS: BACTERIA,URINE LARGE /HPF; RBC,URINE 0-2 /HPF; WBC,URINE 25-50 /HPF
[2018-12-27] MEDS ORDERED: NOREPINEPHRINE 4 MG in NS (IVPB) 250 ML IV SCH (18:00)
--- NOTE | 2018-12-27 18:13 | Consultation-Cardiology ---
HPI-Cardiology Cardiology Consultation: Date of Consultation 12/27/18 Date of Admission Attending Physician Admitting Physician Carla Wilson MD Consulting Physician Wei JORGE MD HPI: Time Seen by a Provider: 18:13 Chief Complaint: Hypotension This is a 63-year-old lady who is well known to me. She has history of CABG and atrial fibrillation. 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 She presented to the cancer center and was found to be very lethargic. Her blood pressure was low. She was given 1 L of fluid and brought to the ER. Further fluids were given with improvement in the mental status. When I saw her in the ER her systolic blood pressure was 116 mmHg and she was alert. She denies any chest pain, shortness of breath. She had a brief 30 second episode of chest pain a day or 2 before admission. Review of Systems-Cardiology Review of Systems Constitutional: As described under HPI; No As described under HPI, No no symptoms reported, No chills, No fever, No lightheadedness Eyes: No As described under HPI, No no symptoms reported, No blindness, No blurred vision, No contact lenses, No drainage, No decreased acuity, No foreign body sensation, No pain, No vision change Ears/Nose/Throat: No As described under HPI, No no symptoms reported, No chronic hearing loss, No ear discharge, No ear pain, No nasal drainage, No ulcerations Respiratory: No no symptoms reported; As described under HPI; No As described under HPI, No cough, No orthopnea, No shortness of breath, No SOB with excertion Cardiovascular: No no symptoms reported; As described under HPI; No As described under HPI, No chest pain, No edema, No irregular heart rate, No lightheadedness, No palpitations Gastrointestinal: No no symptoms reported, No As described under HPI, No abdomen distended, No abdominal pain, No blood streaked bowels, No constipation, No diarrhea, No nausea, No vomiting, No stool coloration changes Genitourinary: No As described under HPI, No burning, No dysuria, No discharge, No frequency, No flank pain, No hematuria, No urgency : Yes : No Skin: No rash, No skin related problems, No ulcerations Psychiatric/Neurological: No anxiety, No depression, No seizure, No focal weakness, No syncope Hematologic: No bleeding abnormalities ZEN-Ieehan-Vbcqfq Hx Patient Social History Alcohol Use: Denies Use Recreational Drug Use: No Smoking Status: Former Smoker Type Used: Cigarettes Recent Foreign Travel: No Recent Infectious Disease Expo: No Immunizations Up To Date Tetanus Booster (TDap): Unknown Date of Pneumonia Vaccine: Jun 23, 2016 Date of Influenza Vaccine: May 18, 2018 Past Medical History PMH As described under Assessment. Family Medical History Family Medical History: Does not report fam h/o early CAD or SCD Family History: Arthritis G8 BROTHER Completed stroke 19 MOTHER FH: anemia 19 MOTHER FH: lupus G8 SISTER FH: throat cancer 19 FATHER Hypertension G8 SISTER Myocardial infarction 19 MOTHER Thyroid disease 19 MOTHER G8 SISTER Allergies and Home Medications Allergies Coded Allergies: Szfbwzb-Uwd-Ujt Reductase Inhibitor (Verified Allergy, Intermediate, GI UPSET, N/V, 11/06/17) cefadroxil (Unverified Allergy, Mild, 01/01/17) Sulfa (Sulfonamide Antibiotics) (Verified Allergy, Unknown, 06/18/18) Home Medications Acetaminophen 325 Mg Tablet, 325 MG PO Q4H PRN for PAIN-MILD, (Reported) Bumetanide 1 Mg Tablet, 1 MG PO DAILY, (Reported) Cephalexin 250 Mg Capsule, 500 MG PO BID Prescribed by: MICHELLE GARCIA on 12/28/18 1004 Cetirizine HCl 10 Mg Tablet, 10 MG PO DAILY, (Reported) Digoxin 125 Mcg Tablet, 125 MCG PO Q48H, (Reported) TAKES OPPOSITE DAYS OF LEVOTHYRXOINE Diphenhydramine HCl 25 Mg Capsule, 25 MG PO Q6H PRN for ALLERGIES, (Reported) Folic Acid 1 Mg Tablet, 1 MG PO DAILY, (Reported) Insulin Aspart 300 Units/3 Ml Solution, 4 UNITS SQ DAILY, (Reported) Insulin Aspart 300 Units/3 Ml Solution, 4 UNITS SQ BIDAC PRN for HIGH BLOOD SUGAR, (Reported) Insulin NPH Human Isophane 100 Unit/1 Ml Vial, 14 UNIT SQ DAILY, (Reported) Levothyroxine Sodium 175 Mcg Tablet, 175 MCG PO Q48H, (Reported) TAKES OPPOSITE DAY OF DIGOXIN Magnesium Oxide 400 Mg Tablet, 400 MG PO BID, (Reported) Metoprolol Tartrate 25 Mg Tablet, 25 MG PO BID, (Reported) Nitroglycerin 0.4 Mg Tab.subl, 0.4 MG SL UD PRN for CHEST PAIN, (Reported) Omeprazole 40 Mg Capsule.dr, 40 MG PO BID, (Reported) Ondansetron HCl 8 Mg Tablet, 8 MG PO DAILY PRN for NAUSEA/VOMITING-1ST LINE, (Reported) Sennosides/Docusate Sodium 1 Each Tablet, 1 TAB PO HS PRN for CONSTIPATION-5TH LINE, (Reported) Tizanidine HCl 4 Mg Tablet, 4 MG PO TID PRN for MUSCLE SPASMS, (Reported) Tramadol HCl 50 Mg Tablet, 50 MG PO TID PRN for PAIN-MODERATE, (Reported) Patient Home Medication List Home Medication List Reviewed: Yes Physical Exam-Cardiology Physical Exam Vital Signs/I&O 12/28/18 12/28/18 12/28/18 12/28/18 05:00 05:50 06:00 07:00 Pulse 62 62 62 64 Resp 14 13 14 15 B/P (MAP) 115/45 (68) 149/63 (91) 155/59 (91) Pulse Ox 96 99 99 95 O2 Delivery Room Air Nasal Cannula Nasal Cannula Nasal Cannula O2 Flow Rate 2.00 2.00 2.00 12/28/18 12/28/18 12/28/18 12/28/18 07:00 07:00 08:00 08:21 Temp 97.4 Pulse 64 71 Resp 19 B/P (MAP) 155/48 (83) Pulse Ox 96 O2 Delivery Nasal Cannula Room Air O2 Flow Rate 2.00 12/28/18 12/28/18 12/28/18 09:00 10:00 11:07 Pulse 66 80 80 Resp 26 22 22 B/P (MAP) 148/58 (88) 172/69 (103) 172/69 Pulse Ox 98 98 98 O2 Delivery Nasal Cannula Nasal Cannula Nasal Cannula O2 Flow Rate 2.00 2.00 12/27/18 23:59 Intake Total 1165 ml Balance 1165 ml Capillary Refill : Less Than 3 Seconds Constitutional: appears stated age, AAO x 3; No apparent distress; well- developed, well-nourished HEENT: PERRL; No normal ENT inspection, No TMs normal, No pharynx normal, No scleral icterus (R), No scleral icterus (L), No pale conjunctivae (R), No pale conjunctivae (L), No photophobia, No TM abnormal (R), No TM abnormal (L), No pharyngeal erythema, No tonsillar exudate, No other, No discharge, No EOMI; hearing is well preserved; No hard of hearing; oral hygience is good; No ulceration, No xanthelasmas are seen Neck: No non-tender, No full range of motion, No supple, No normal inspection, No carotid bruit, No limited range of motion, No lymphadenopathy (R), No lymphadenopathy (L), No tender lateral, No tender midline, No thyromegaly, No other; carotid pulses are 2 + bilaterally; No with good upstrokes Respiratory: No accessory muscle use, No respiratory distress, No chest tender, No chest expansion is symmetric; chest is bilaterally symmetric; No lungs clear to percussion; lungs clear to auscultation; No crackles, No rhonchi, No rales, No stridor, No wheezing, No pleural rub, No other Cardiovascular: regular rate-rhythm, S1 and S2 Gastrointestinal: No tender, No soft, No round, No distended, No pulsatile m ass, No organomegaly, No guarding, No rebound, No tenderness, No hernia, No mass, No audible bowel sounds, No abnormal bowel sounds, No abdominal bruits, No spleenomegaly, No other Rectal: deferred Extremities: No normal range of motion, No non-tender, No normal inspection, No pedal edema, No calf tenderness, No normal capillary refill, No pelvis stable, No calf tenderness, No inflammation, No pedal edema, No slow capillary refill, No swelling, No other, No abrasion, No clubbing, No cyanosis, No ecchymosis, No laceration, No no lower extremity edema bilateral, No significant edema, No tend erness, No wound Neurologic/Psychiatric: no motor/sensory deficits, alert, normal mood/affect, oriented x 3, power is 5/5 both on sides Skin: No rash, No ulcerations Data Review Labs Laboratory Tests 12/27/18 16:54: Blood Gas Puncture Site R RAD, Blood Gas Patient Temperature 97.6, Arterial Blo od pH 7.40, Arterial Blood Partial Pressure CO2 38, Arterial Blood Partial Pressure O2 72L, Arterial Blood HCO3 23, Arterial Blood Total CO2 24.4, Arterial Blood Oxygen Saturation 97, Arterial Blood Base Excess -1.1, Osvaldo Test YES-POS, Blood Gas Ventilator Setting NA, Blood Gas Inspired Oxygen UNKNOWN 12/27/18 17:10: Urine Color YELLOW, Urine Clarity VERY CLOUDYH, Urine pH 6, Urine Specific [place] 1.015L, Urine Protein 1+H, Urine Glucose (UA) 4+H, Urine Ketones NEGATIVE, Urine Nitrite NEGATIVE, Urine Bilirubin NEGATIVE, Urine Urobilinogen NORMAL, Urine Leukocyte Esterase 2+H, Urine RBC (Auto) 1+H, Urine RBC 0-2, Urine WBC 25-50H, Urine Squamous Epithelial Cells 5-10, Urine Crystals NONE, Urine Bacteria LARGEH, Urine Casts NONE, Urine Mucus NEGATIVE, Urine Culture Indicated CULTURE PENDING 12/27/18 18:42: Glucometer 528*H 12/27/18 20:14: Glucometer 436*H 12/27/18 20:17: Lactic Acid Level 1.62 12/27/18 20:27: Sodium Level 132L, Potassium Level 4.3, Chloride Level 100, Carbon Dioxide Level 24, Anion Gap 8, Blood Urea Nitrogen 36H, Creatinine 2.88H, Estimat Glomerular Filtration Rate 17, BUN/Creatinine Ratio 13, Glucose Level 381H, Calcium Level 9.1 12/27/18 21:05: Glucometer 361H 12/27/18 22:09: Glucometer 171H 12/27/18 22:23: Sodium Level 132L, Potassium Level 4.3, Chloride Level 101, Carbon Dioxide Level 22, Anion Gap 9, Blood Urea Nitrogen 35H, Creatinine 2.88H, Estimat Glomerular Filtration Rate 17, BUN/Creatinine Ratio 12, Glucose Level 393H, Calcium Level 8.8, Troponin I < 0.028 12/27/18 23:03: Glucometer 406*H 12/28/18 00:05: Glucometer 362H 12/28/18 01:01: Glucometer 333H 12/28/18 02:04: Glucometer 297H 12/28/18 03:15: Glucometer 262H 12/28/18 03:16: White Blood Count 4.4, Red Blood Count 2.71L, Hemoglobin 8.3L, Hematocrit 25L, Mean Corpuscular Volume 91, Mean Corpuscular Hemoglobin 31, Mean Corpuscular Hemoglobin Concent 34, Red Cell Distribution Width 17.4H, Platelet Count 114L, Mean Platelet Volume 10.0, Neutrophils (%) (Auto) 61, Lymphocytes (%) (Auto) 23, Monocytes (%) (Auto) 10, Eosinophils (%) (Auto) 5, Basophils (%) (Auto) 1, Neutrophils # (Auto) 2.7, Lymphocytes # (Auto) 1.0, Monocytes # (Auto) 0.5, Eosinophils # (Auto) 0.2, Basophils # (Auto) 0.0, Sodium Level 133L, Potassium Level 4.5, Chloride Level 102, Carbon Dioxide Level 22, Anion Gap 9, Blood Urea Nitrogen 35H, Creatinine 2.53H, Estimat Glomerular Filtration Rate 19, BUN/Creatinine Ratio 14, Glucose Level 245H, Calcium Level 9.0, Corrected Calcium 9.6, Phosphorus Level 2.6, Magnesium Level 2.0, Total Bilirubin 0.7, Aspartate Amino Transf (AST/SGOT) 15, Alanine Aminotransferase (ALT/SGPT) 9, Alkaline Phosphatase 63, Total Protein 6.4, Albumin 3.2, Beta-Hydroxybutyrate (Chem panel) 0.05 12/28/18 04:10: Glucometer 223H 12/28/18 05:05: Glucometer 228H 12/28/18 06:12: Glucometer 197H, Troponin I < 0.028 12/28/18 10:18: Glucometer 294H Microbiology 12/27/18 Blood Culture - Preliminary, Resulted No growth 12/27/18 Urine Culture - Preliminary, Resulted Gram Negative Jose ECG Impression ECG Initial ECG Rhythm: Normal Sinus A/P-Cardiology Assessment/Admission Diagnosis Anemia, Hypotension likely due to blood loss, CAD, CABG, Paroxysmal atrial fibrillation, Hyperlipidemia Plan Will likely require blood transfusion. Continue IV fluids. Defer to the primary team. Continue outpatient medications for CAD. Request echocardiogram. Patient cannot take dual antiplatelet therapy as well as oral anticoagulation due to ongoing bleeding. Thank you for your consultation. Please call me if you have any questions. Estela Jorge MD, FACP, FACC, FSCAI, FHRS, CCDS Interventional Cardiology Cardiac Electrophysiology Vascular Medicine and Endovascular Interventions Wei JORGE MD Dec 27, 2018 18:13
[2018-12-27] MEDS ORDERED: LEVOFLOXACIN 500 MG/D5W 100 ML (PRE-MIX) IV NR (20:15)
[2018-12-27] MEDS ORDERED: 1/2 NS IV SOLUTION 1,000 ML IV ONE (20:17)
[2018-12-27] MEDS ORDERED: ONDANSETRON 4 MG/2 ML (SDV) Z0FRAN IV PRN (20:30)
[2018-12-27] MEDS: 1/2 NS IV SOLUTION 1,000 ML IV SCH ×2 (20:30→23:05)
[2018-12-27] MEDS ORDERED: CATHETER FLUSH 10 ML SYR IV PRN (20:30)
[2018-12-27] MEDS ORDERED: POTASSIUM CL 10MEQ/50ML IVPB 50 ML IV SCH (20:30)
[2018-12-27 20:57] LABS: CALCIUM 9.1 MG/DL (8.5-10.1); CREATININE SERUM 2.88 MG/DL (0.60-1.30); POTASSIUM 4.3 MMOL/L (3.6-5.0)
[2018-12-27] MEDS: POTASSIUM CL 10MEQ/50ML IVPB 50 ML IV SCH (22:14)
[2018-12-27] MEDS: D5 1/2 NS 1000 ML IV SOLUTION 1,000 ML IV SCH ×2 (22:15→23:51)
[2018-12-27 22:47] LABS: BUN/CREATININE RATIO 12; CALCIUM 8.8 MG/DL (8.5-10.1); CARBON DIOXIDE 22 MMOL/L (21-32); CHLORIDE 101 MMOL/L (98-107); CREATININE SERUM 2.88 MG/DL (0.60-1.30); GFR ESTIMATED 17; GLUCOSE 393 MG/DL (70-105); POTASSIUM 4.3 MMOL/L (3.6-5.0); SODIUM 132 MMOL/L (135-145)
[2018-12-28] VITALS (12 sets, daily range): BP systolic 100–172; BP diastolic 41–69
[2018-12-28] MEDS: POTASSIUM CL 10MEQ/50ML IVPB 50 ML IV SCH ×2 (00:29→03:01)
[2018-12-28 03:22] LABS: BASOPHILS % (AUTO) 1 % (0-10); EOSINOPHILS # (AUTO) 0.2 10^3/uL (0.0-0.3); EOSINOPHILS % (AUTO) 5 % (0-10); HEMATOCRIT 25 % (35-52); HEMOGLOBIN 8.3 G/DL (11.5-16.0); LYMPHOCYTES % (AUTO) 23 % (12-44); MEAN CORPUSCULAR HEMOGLOBIN 31 PG (25-34); MEAN CORPUSCULAR HGB CONC 34 G/DL (32-36); MEAN CORPUSCULAR VOLUME 91 FL (80-99); MONOCYTES # (AUTO) 0.5 X 10^3 (0.0-1.0); MONOCYTES % (AUTO) 10 % (0-12); NEUTROPHILS # (AUTO) 2.7 X 10^3 (1.8-7.8); NEUTROPHILS % (AUTO) 61 % (42-75); PLATELET COUNT 114 10^3/uL (130-400); RED CELL DISTRIBUTION WIDTH 17.4 % (10.0-14.5); WHITE BLOOD COUNT 4.4 10^3/uL (4.3-11.0)
[2018-12-28 03:43] LABS: ALBUMIN 3.2 GM/DL (3.2-4.5); BILIRUBIN,TOTAL 0.7 MG/DL (0.1-1.0); CREATININE SERUM 2.53 MG/DL (0.60-1.30); PHOSPHORUS 2.6 MG/DL (2.3-4.7); POTASSIUM 4.5 MMOL/L (3.6-5.0); TOTAL PROTEIN 6.4 GM/DL (6.4-8.2)
[2018-12-28] MEDS ORDERED: NS IV 1000 ML 1,000 ML ONE (05:13)
--- NOTE | 2018-12-28 05:28 | Pulmonary Consultation ---
History of Present Illness History of Present Illness Date of Consultation 12/28/18 05:19 Time Seen by Provider: 05:20 Date of Admission History of Present Illness 63YO with hx of chronic anemia from gastric antral vascular ectasia requiring multiple transfusions presented to ED from cancer center secondary to hypotension 75/40, lethargy, and anemia. Pt has had multiple hospitalizations in the past for similar issues. Pt was also found to have HHNK and dehydration. Pt was admitted to ICU with insulin gtt and IVF. I am consulted for critical care management. Allergies and Home Medications Allergies Coded Allergies: Swmukob-Fft-Qer Reductase Inhibitor (Verified Allergy, Intermediate, GI UPSET, N/V, 11/06/17) cefadroxil (Unverified Allergy, Mild, 01/01/17) Sulfa (Sulfonamide Antibiotics) (Verified Allergy, Unknown, 06/18/18) Home Medications Acetaminophen 325 Mg Tablet, 325 MG PO Q4H PRN for PAIN-MILD, (Reported) Bumetanide 1 Mg Tablet, 1 MG PO DAILY, (Reported) Cefdinir 300 Mg Capsule, 300 MG PO BID Prescribed by: MICHELLE GARCIA on 11/06/18 1250 Cetirizine HCl 10 Mg Tablet, 10 MG PO DAILY, (Reported) Digoxin 125 Mcg Tablet, 125 MCG PO DAILY, (Reported) Diphenhydramine HCl 25 Mg Capsule, 25 MG PO Q6H PRN for ALLERGIES, (Reported) Folic Acid 1 Mg Tablet, 1 MG PO DAILY, (Reported) Insulin NPH Human Isophane 100 Unit/1 Ml Vial, 14 UNIT SQ DAILY, (Reported) Levothyroxine Sodium 175 Mcg Tablet, 175 MCG PO DAILY, (Reported) Magnesium Oxide 400 Mg Tablet, 400 MG PO BID, (Reported) Metoprolol Tartrate 25 Mg Tablet, 37.5 MG PO BID, (Reported) TAKES 1 & 1/2 (25MG) TABLET Nitroglycerin 0.4 Mg Tab.subl, 0.4 MG SL UD PRN for CHEST PAIN, (Reported) Omeprazole 40 Mg Capsule.dr, 40 MG PO BID, (Reported) Ondansetron HCl 8 Mg Tablet, 8 MG PO DAILY PRN for NAUSEA/VOMITING-1ST LINE, (Reported) Potassium Chloride 20 Meq Tablet.er, 20 MEQ PO BID, (Reported) Sennosides/Docusate Sodium 1 Each Tablet, 1 TAB PO HS PRN for CONSTIPATION-5TH LINE, (Reported) Tizanidine HCl 4 Mg Tablet, 4 MG PO TID PRN for MUSCLE SPASMS, (Reported) Tramadol HCl 50 Mg Tablet, 50 MG PO TID PRN for PAIN-MODERATE, (Reported) Past Zyxjlkm-Geoudb-Rdknny Hx Patient Social History Alcohol Use: Denies Use Recreational Drug Use: No Smoking Status: Former Smoker Type Used: Cigarettes Former Smoker, Quit: May 20, 1980 Recent Foreign Travel: No Contact w/Someone Who Travel: No Recent Infectious Disease Expo: No Recent Hopitalizations: No Physical Abuse: No Sexual Abuse: No Mistreated: No Fear: No Immunizations Up To Date Tetanus Booster (TDap): Unknown PED Vaccines UTD: Yes Date of Pneumonia Vaccine: Jan 27, 2018 Date of Influenza Vaccine: May 18, 2018 Seasonal Allergies Seasonal Allergies: Yes Past Medical History Surgeries: Yes Adenoidectomy, Cardiac, CABG, Coronary Stent, Open Heart Surgery, Orthopedic, Tonsillectomy, Tubal Ligation Respiratory: Yes (LEFT PLEURAL EFFUSION) Sleep Apnea Currently Using CPAP: No Currently Using BIPAP: No Cardiac: Yes (CHF, STENT X1; CABG 02/16/2018 x 4 @ [facility]) Atrial Fibrillation, Chronic Edema/Swelling, Coronary Artery Disease, Heart Attack, High Cholesterol, Hypertension Neurological: Yes Reproductive Disorders: No Female Reproductive Disorders: Denies [employer] History: Menopausal Sexually Transmitted Disease: No HIV/AIDS: No Genitourinary: Yes Renal Failure Gastrointestinal: Yes (GAVE) Gastroesophageal Reflux, Gastrointestinal Bleed, Diverticulosis, Hemorrhoids, Polyps Musculoskeletal: Yes (POOR AMBULATION--USES WALKER SINCE CABG) Degenerate Disk Disease, Arthritis, Chronic Back Pain, Fractures Endocrine: Yes Diabetes, Insulin dep HEENT: No Loss of Vision: Denies Hearing Impairment: Denies Cancer: No Psychosocial: No Anxiety Integumentary: Yes Psoriasis Blood Disorders: Yes (acute anemia) Adverse Reaction/Blood Tranf: Yes (Antibody JKA) Family Medical History Arthritis G8 BROTHER Completed stroke 19 MOTHER FH: anemia 19 MOTHER FH: lupus G8 SISTER FH: throat cancer 19 FATHER Hypertension G8 SISTER Myocardial infarction 19 MOTHER Thyroid disease 19 MOTHER G8 SISTER Hypertension, Stroke, Other Conditions/Hx Review of Systems Time Seen by Provider: 05:38 Constitutional: Weakness, Malaise; No: Fever, Chills, Sweats, Other Eyes: No: Pain, Vision change, Conjunctivae inflammation, Eyelid inflammation, Other, Redness ENT: No: Ear pain, Ear discharge, Nose pain, Nose discharge, Nose congestion, Mouth pain, Mouth swelling, Throat pain, Throat swelling, Other Respiratory: Shortness of breath, SOB with excertion; No: Cough, Dry, Wheezing, Hemoptysis, Pleuritic Pain, Sputum, Wheezing, Other Cardiovascular: No: Chest Pain, Palpitations, Orthopnea, Paroxysmal Noc. Dyspnea, Edema, Lt Headedness, Other Gastrointestinal: No: Nausea, Vomiting, Abdominal Pain, Diarrhea, Constipation, Melena, Hematochezia, Other Genitourinary: No Dysuria, No Frequency, No Incontinence; Hematuria; No Retention, No Other Sepsis Event Evaluation Height, Weight, BMI Height: 5'4.00" Weight: 204lbs. 1.0oz. [id number]; 35.0 BMI Method:Stated Exam Exam Vital Signs Date Time Temp Pulse Resp B/P (MAP) Pulse Ox O2 Delivery O2 Flow Rate FiO2 12/28/18 04:00 Room Air 12/28/18 04:00 98.0 12/28/18 03:00 63 16 144/50 (81) 97 Room Air 12/28/18 02:00 57 17 113/50 (71) 96 Room Air 12/28/18 01:00 58 12/28/18 01:00 58 15 116/57 (76) 95 Room Air 12/28/18 00:00 57 15 100/41 (60) 96 Room Air 12/28/18 00:00 Room Air 12/28/18 00:00 97.4 12/27/18 23:00 63 14 96/40 (58) 96 Room Air 12/27/18 22:00 55 18 109/47 (67) 100 Room Air 12/27/18 21:00 56 16 103/34 (57) 100 Room Air 12/27/18 20:45 54 22 109/47 (67) 100 Room Air 12/27/18 20:30 55 10 100/85 (90) 97 Room Air 12/27/18 20:15 54 8 103/55 (71) 100 Room Air 12/27/18 20:00 Room Air 12/27/18 20:00 96.2 12/27/18 19:59 55 23 110/44 (66) 100 Room Air 12/27/18 19:56 59 12/27/18 19:44 97.4 51 16 93/39 (57) 96 Room Air 12/27/18 19:44 52 21 114/33 (60) 97 Room Air 12/27/18 15:58 97.4 52 18 75/23 (40) 95 Room Air l I & O 12/28/18 07:00 Intake Total 1365 ml Output Total 500 ml Balance 865 ml Height & Weight Height: 5'4.00" Weight: 204lbs. 1.0oz. 92.039901is; 35.0 BMI Method:Stated General Appearance: No Apparent Distress, WD/WN Respiratory: No Accessory Muscle Use, No Respiratory Distress Capillary Refill: Less Than 3 Seconds Extremity: Normal Capillary Refill, Normal Inspection Neurologic/Psychiatric: Alert, Oriented x3, Other (she is able to carry on a conversation with me. Has a blood pressure of 95/43. ) Skin: Normal Color, Warm/Dry Results Lab Laboratory Tests 12/27/18 16:04 12/27/18 20:27 12/27/18 22:23 12/28/18 03:16 Assessment/Plan Assessment/Plan HHNK - BS on admission >600 -Pt is not DKA so will D/C D5 -BS have improved will give 15 units of Levemir then D/C insulin gtt and add SSI Dehydration -Give another 2 liter bolus with one wide open and one over 4hrs -Change IVF to NS chronic anemia from gastric antral vascular ectasia -S/p 1 unit of PRBC -Oncology following -Monitor Acute on chronic renal failure -Increase IVF -Continue to monitor Hyponatremia -D/C 1/2 NS -Change to NS at 150 for now Metabolic lactic acidosis secondary to dehydration and anemia -Improved with IVF -Continue to monitor asymptomatic UTI with hx of Ecoli - No fever, no leukocytosis - D/C Levaquin -Start Macrobid BRISEIDA IBRAHIM DO Dec 28, 2018 05:28
[2018-12-28] MEDS ORDERED: NS IV 1000 ML 1,000 ML IV SCH ×3 (05:30)
[2018-12-28] MEDS: inSUlin ASPART (NovoLOG) 1 UNIT/0.01 ML (CHARGE PER UNIT) SC SCH ×2 (07:14→10:20)
[2018-12-28] MEDS ORDERED: CEPHALEXIN 250 MG (KEFLEX) CAP PO SCH (09:00)
[2018-12-28] MEDS ORDERED: NITROFURANTOIN 100 MG (MACROBID) CAPSULE PO SCH (09:00)
--- NOTE | 2018-12-28 09:10 | Diagnostic Imaging Report ---
INDICATION: Anemia. TECHNIQUE: Single view chest at 3:23 AM. CORRELATION STUDY: 12/27/2018. FINDINGS: Post sternotomy changes. Cardiac enlargement is present with pulmonary vascular congestion with the congestion appearing increased. Consolidation and effusion at the left lung base persist. There appears to be new or developing infiltrate at the right lung base. Surgical clips in the left upper lung. Right-sided Infusaport catheter is stable. IMPRESSION: Cardiac enlargement with the vasculature appearing increased from the prior study. Additionally, there is a new area of infiltrate and/or atelectasis at the right lung base. Continued consolidation with effusion in the left lung base. Dictated by: Dictated on workstation # [id number]
[2018-12-28] MEDS ORDERED: AZIT250T12 PO (09:47)
[2018-12-28] MEDS ORDERED: INSU100I14 SQ ×2 (09:55)
--- NOTE | 2018-12-28 10:03 | Short Stay Summary-Hospitalist ---
History of Present Illness HPI/Chief Complaint Chief complaint: Hyperosmolar nonketotic status. HPI: This is a 63yoWF [facility] Pt known to me from frequent hospital stays due to chronic renal failure and out of control diabetes who presented to the ER after [facility] when she received blood transfusion because she is blood transfusion dependent. She was assessed, found no evidence of any profound sepsis but she did have a UTI and blood sugar was 632, bicarb remained normal at 20, Hgb was 6.3 so she was assessed, aggressively hydrated in the ICU and was admitted to the ICU with insulin and rapidly recovered. Pt at this current time is feeling great, blood sugars have remained in control, Hgb is stable and cardiology, pulmonology and hematology all agree for discharge on renal dose Keflex and close follow up with PCP and Dr. Haywood. Source: patient Exam Limitations: no limitations Date Seen 12/28/18 Time Seen by a Provider: 09:00 Attending Physician Sarah Garcia Holly R MD Referring Physician Date of Admission Dec 27, 2018 at 17:05 Home Medications & Allergies Home Medications Reviewed patient Home Medication Reconciliation performed by pharmacy medication reconciliations health care technician and/or nursing. Patients Allergies have been reviewed. Allergies Allergies Coded Allergies Khrtnqh-Lia-Brm Reductase Inhibitor (Verified Allergy, Intermediate, GI UPSET, N/V, 11/06/17) cefadroxil (Unverified Allergy, Mild, 01/01/17) Sulfa (Sulfonamide Antibiotics) (Verified Allergy, Unknown, 06/18/18) Past Qifxpvj-Qdvega-Kjjshs Hx Past Med/Social Hx: Reviewed Nursing Past Med/Soc Hx, Reviewed and Corrections made Patient Social History Marrital Status: Employed/Student: unemployed Alcohol Use: Denies Use Recreational Drug Use: No Smoking Status: Former Smoker Former Smoker, Quit: May 20, 1980 Type Used: Cigarettes Recent Foreign Travel: No Contact w/other who traveled: No Recent Hopitalizations: No Recent Infectious Disease Expo: No Immunizations Up To Date Tetanus Booster (TDap): Unknown Pediatric: Yes Date of Pneumonia Vaccine: Jan 27, 2018 Date of Influenza Vaccine: May 18, 2018 Seasonal Allergies Seasonal Allergies: Yes Past Medical History Surgeries: Adenoidectomy, Cardiac, CABG, Coronary Stent, Open Heart Surgery, Orthopedic, Tonsillectomy, Tubal Ligation Respiratory: COPD, Sleep Apnea Currently Using CPAP: No Currently Using BIPAP: No Cardiac: Atrial Fibrillation, Chronic Edema/Swelling, Coronary Artery Disease, Heart Attack, High Cholesterol, Hypertension Reproductive: No Sexually Transmitted Disease: No HIV/AIDS: No Female Reproductive Disorders: Denies Menopausal Genitourinary: Renal Failure Gastrointestinal: Gastroesophageal Reflux, Gastrointestinal Bleed, Diverticulosis, Hemorrhoids, Polyps Musculoskeletal: Degenerate Disk Disease, Arthritis, Chronic Back Pain, Fractures Endocrine: Diabetes, Insulin dep Loss of Vision: Denies Hearing Impairment: Denies Psychosocial: Anxiety Skin/Integumentary: Psoriasis History of Blood Disorders: Yes (acute anemia) Adverse Reaction to Blood Wright: Yes (Antibody JKA) Family History Arthritis G8 BROTHER Completed stroke 19 MOTHER FH: anemia 19 MOTHER FH: lupus G8 SISTER FH: throat cancer 19 FATHER Hypertension G8 SISTER Myocardial infarction 19 MOTHER Thyroid disease 19 MOTHER G8 SISTER Hypertension, Stroke, Other Conditions/Hx Review of Systems Constitutional: see HPI, dizziness, malaise, weakness EENTM: no symptoms reported Respiratory: no symptoms reported Cardiovascular: no symptoms reported Gastrointestinal: no symptoms reported Genitourinary: no symptoms reported Musculoskeletal: no symptoms reported Skin: no symptoms reported Psychiatric/Neurological: Anxiety, Depressed All Other Systems Reviewed Negative Unless Noted: Yes Physical Exam Physical Exam Vital Signs Vital Signs - First Documented 12/27/18 12/28/18 15:58 05:50 Temp 97.4 Pulse 52 Resp 18 B/P (MAP) 75/23 (40) Pulse Ox 95 O2 Delivery Room Air O2 Flow Rate 2.00 Capillary Refill : Less Than 3 Seconds Height, Weight, BMI Height: 5'4.00" Weight: 196lbs. 5.0oz. 89.258524as; 35.0 BMI Method:Stated General Appearance: No Apparent Distress, WD/WN, Chronically ill, Obese Eyes: Bilateral Eye Normal Inspection, Bilateral Eye PERRL, Bilateral Eye EOMI HEENT: PERRL/EOMI, Normal ENT Inspection, Pharynx Normal Neck: Full Range of Motion, Normal Inspection, Non Tender, Supple, Carotid Bruit Respiratory: Lungs Clear, Normal Breath Sounds, No Accessory Muscle Use, No Respiratory Distress Cardiovascular: Regular Rate, Rhythm, No Edema, No Gallop, No JVD, No Murmur, Normal Peripheral Pulses Gastrointestinal: Normal Bowel Sounds, Non Tender, Soft Back: Normal Inspection, No CVA Tenderness, No Vertebral Tenderness Extremity: Normal Capillary Refill, Normal Inspection Neurologic/Psychiatric: Alert, Oriented x3, No Motor/Sensory Deficits, Normal Mood/Affect, Other (she is able to carry on a conversation with me. Has a blood pressure of 95/43. ) Skin: Normal Color, Warm/Dry Lymphatic: No Adenopathy Results Results/Procedures Labs Laboratory Tests 12/27/18 16:04 12/27/18 20:27 12/27/18 22:23 12/28/18 03:16 Patient resulted labs reviewed. 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 per Dr Emir Santiago on chronic renal failure Hyponatremia UTI Conclusion Plan DC home Renal dosed abx for UTI Diagnosis/Problems Diagnosis/Problems (1) HHNC (hyperglycemic hyperosmolar nonketotic coma) Status: Acute (2) Acute on chronic renal failure Status: Acute Qualifiers: (3) Uncontrolled diabetes mellitus Status: Chronic Qualifiers: Qualified Codes: E11.65 - Type 2 diabetes mellitus with hyperglycemia (4) Severe anemia Status: Chronic (5) Confusion Status: Resolved Resolution Date/Time: 12/28/18 @ 19:50 (6) Dehydration Status: Acute (7) 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 (8) Atrial fibrillation Status: Chronic Qualifiers: Qualified Codes: I48.2 - Chronic atrial fibrillation (9) Hypothyroidism Status: Chronic Qualifiers: Qualified Codes: E03.9 - Hypothyroidism, unspecified (10) Coronary artery disease Status: Chronic Qualifiers: Qualified Codes: I25.10 - Atherosclerotic heart disease of [place] coronary artery without angina pectoris (11) Transfusion-dependent anemia Status: Chronic (12) UTI (urinary tract infection) Status: Acute Qualifiers: Qualified Codes: N30.00 - Acute cystitis without hematuria (13) Contraindication to anticoagulation therapy Status: Chronic (14) Contraindication to antiplatelet therapy Status: Chronic (15) Port-A-Cath in place Status: Acute (16) Loss of weight Status: Acute (17) Oxygen dependent Status: Chronic Clinical Quality Measures DVT/VTE Risk/Contraindication: Risk Factor Score Per Nursin RFS Level Per Nursing on Admit: 4+=Very High SARAH GARCIA DO Dec 28, 2018 10:03
[2018-12-28] MEDS ORDERED: CEPH250C PO (10:04)
--- NOTE | 2018-12-28 11:09 | Cardiology Progress Note ---
Cardiology SOAP Progress Note Subjective: Significantly improved after packed RBCs overnight. Objective: I&O/Vital Signs 12/28/18 12/28/18 12/28/18 12/28/18 05:00 05:50 06:00 07:00 Pulse 62 62 62 64 Resp 14 13 14 15 B/P (MAP) 115/45 (68) 149/63 (91) 155/59 (91) Pulse Ox 96 99 99 95 O2 Delivery Room Air Nasal Cannula Nasal Cannula Nasal Cannula O2 Flow Rate 2.00 2.00 2.00 12/28/18 12/28/18 12/28/18 12/28/18 07:00 07:00 08:00 08:21 Temp 97.4 Pulse 64 71 Resp 19 B/P (MAP) 155/48 (83) Pulse Ox 96 O2 Delivery Nasal Cannula Room Air O2 Flow Rate 2.00 12/28/18 12/28/18 12/28/18 09:00 10:00 11:07 Pulse 66 80 80 Resp 26 22 22 B/P (MAP) 148/58 (88) 172/69 (103) 172/69 Pulse Ox 98 98 98 O2 Delivery Nasal Cannula Nasal Cannula Nasal Cannula O2 Flow Rate 2.00 2.00 12/27/18 23:59 Intake Total 1165 ml Balance 1165 ml Weight (Pounds): 196 Weight (Ounces): 5.0 Weight (Calculated Kilograms): 89.744836 Constitutional: AAO x 3 Respiratory: No accessory muscle use, No respiratory distress, No chest tender, No chest expansion is symmetric; chest is bilaterally symmetric; No lungs clear to percussion; lungs clear to auscultation; No crackles, No rhonchi, No rales, No stridor, No wheezing, No pleural rub, No other Cardiovascular: regular rate-rhythm; No irregularly irregular, No extra beats, No parasternal heave is noted, No JVD, No edema, No bradycardia, No tachycardia, No point of maximal impulse, No cardiac thrills are palpable; S1 and S2; No gallop/S3, No gallop/S4, No diastolic murmur, No systolic murmur, No friction rub, No click, No other Gastrointestional: No tender, No soft, No round, No distended, No pulsatile mass, No organomegaly, No guarding, No rebound, No tenderness, No hernia, No mass, No audible bowel sounds, No abnormal bowel sounds, No abdominal bruits, No spleenomegaly, No other Extremities: No normal range of motion, No non-tender, No normal inspection, No pedal edema, No calf tenderness, No normal capillary refill, No pelvis stable, No calf tenderness, No inflammation, No pedal edema, No slow capillary refill, No swelling, No other, No abrasion, No clubbing, No cyanosis, No ecchymosis, No laceration, No no lower extremity edema bilateral, No significant edema, No tenderness, No wound Neurologic/Psychiatric: no motor/sensory deficits, alert, normal mood/affect, oriented x 3 Results/Procedures: Labs Laboratory Tests 12/27/18 16:54: Blood Gas Puncture Site R RAD, Blood Gas Patient Temperature 97.6, Arterial Blood pH 7.40, Arterial Blood Partial Pressure CO2 38, Arterial Blood Partial Pressure O2 72L, Arterial Blood HCO3 23, Arterial Blood Total CO2 24.4, Arterial Blood Oxygen Saturation 97, Arterial Blood Base Excess -1.1, Osvaldo Test YES-POS, Blood Gas Ventilator Setting NA, Blood Gas Inspired Oxygen UNKNOWN 12/27/18 17:10: Urine Color YELLOW, Urine Clarity VERY CLOUDYH, Urine pH 6, Urine Specific [place] 1.015L, Urine Protein 1+H, Urine Glucose (UA) 4+H, Urine Ketones NEGATIVE, Urine Nitrite NEGATIVE, Urine Bilirubin NEGATIVE, Urine Urobilinogen NORMAL, Urine Leukocyte Esterase 2+H, Urine RBC (Auto) 1+H, Urine RBC 0-2, Urine WBC 25-50H, Urine Squamous Epithelial Cells 5-10, Urine Crystals NONE, Urine Bacteria LARGEH, Urine Casts NONE, Urine Mucus NEGATIVE, Urine Culture Indicated CULTURE PENDING 12/27/18 18:42: Glucometer 528*H 12/27/18 20:14: Glucometer 436*H 12/27/18 20:17: Lactic Acid Level 1.62 12/27/18 20:27: Sodium Level 132L, Potassium Level 4.3, Chloride Level 100, Carbon Dioxide Level 24, Anion Gap 8, Blood Urea Nitrogen 36H, Creatinine 2.88H, Estimat Glomerular Filtration Rate 17, BUN/Creatinine Ratio 13, Glucose Level 381H, Calcium Level 9.1 12/27/18 21:05: Glucometer 361H 12/27/18 22:09: Glucometer 171H 12/27/18 22:23: Sodium Level 132L, Potassium Level 4.3, Chloride Level 101, Carbon Dioxide Level 22, Anion Gap 9, Blood Urea Nitrogen 35H, Creatinine 2.88H, Estimat Glomerular Filtration Rate 17, BUN/Creatinine Ratio 12, Glucose Level 393H, Calcium Level 8.8, Troponin I < 0.028 12/27/18 23:03: Glucometer 406*H 12/28/18 00:05: Glucometer 362H 12/28/18 01:01: Glucometer 333H 12/28/18 02:04: Glucometer 297H 12/28/18 03:15: Glucometer 262H 12/28/18 03:16: White Blood Count 4.4, Red Blood Count 2.71L, Hemoglobin 8.3L, Hematocrit 25L, Mean Corpuscular Volume 91, Mean Corpuscular Hemoglobin 31, Mean Corpuscular Hemoglobin Concent 34, Red Cell Distribution Width 17.4H, Platelet Count 114L, Mean Platelet Volume 10.0, Neutrophils (%) (Auto) 61, Lymphocytes (%) (Auto) 23, Monocytes (%) (Auto) 10, Eosinophils (%) (Auto) 5, Basophils (%) (Auto) 1, Neutrophils # (Auto) 2.7, Lymphocytes # (Auto) 1.0, Monocytes # (Auto) 0.5, Eosinophils # (Auto) 0.2, Basophils # (Auto) 0.0, Sodium Level 133L, Potassium Level 4.5, Chloride Level 102, Carbon Dioxide Level 22, Anion Gap 9, Blood Urea Nitrogen 35H, Creatinine 2.53H, Estimat Glomerular Filtration Rate 19, BUN/Creatinine Ratio 14, Glucose Level 245H, Calcium Level 9.0, Corrected Calcium 9.6, Phosphorus Level 2.6, Magnesium Level 2.0, Total Bilirubin 0.7, Aspartate Amino Transf (AST/SGOT) 15, Alanine Aminotransferase (ALT/SGPT) 9, Alkaline Phosphatase 63, Total Protein 6.4, Albumin 3.2, Beta-Hydroxybutyrate (Chem panel) 0.05 12/28/18 04:10: Glucometer 223H 12/28/18 05:05: Glucometer 228H 12/28/18 06:12: Glucometer 197H, Troponin I < 0.028 12/28/18 10:18: Glucometer 294H Microbiology 12/27/18 Blood Culture - Preliminary, Resulted No growth 12/27/18 Urine Culture - Preliminary, Resulted Gram Negative Jose A/P: Assessment/Dx: Anemia, Hypotension likely due to blood loss, CAD, CABG, Paroxysmal atrial fibrillation, Hyperlipidemia Plan: Plan Will likely require blood transfusion. Continue IV fluids. Defer to the prima ry team. Continue outpatient medications for CAD. Request echocardiogram. Patient cannot take dual antiplatelet therapy as well as oral anticoagulation due to ongoing bleeding. Thank you for your consultation. Please call me if you have any questions. Estela Jorge MD, FACP, FACC, FSCAI, FHRS, CCDS Interventional Cardiology Cardiac Electrophysiology Vascular Medicine and Endovascular Interventions Focused Exam Lactate Level 12/27/18 16:04: Lactic Acid Level 2.86*H 12/27/18 20:17: Lactic Acid Level 1.62 Wei JORGE MD Dec 28, 2018 11:08
[2018-12-28] MEDS ORDERED: LEVOFLOXACIN 250 MG/50 ML IVPB 50 ML IV SCH (20:30)
== END 2018-12-28 10:50 | disposition home or self-care (01) | DRG 638 ==
LOC: ER 15:56 → EDUNIT# 15:56 → ICU 17:05
PROVIDERS: ADMIT Internal Medicine; ATTEND Internal Medicine
DX: E11.01 Type 2 diabetes mellitus with hyperosmolarity with coma (principal); I95.9 Hypotension, unspecified; E11.65 Type 2 diabetes mellitus with hyperglycemia; N30.00 Acute cystitis without hematuria; N17.9 Acute kidney failure, unspecified; I13.0 Hypertensive heart and chronic kidney disease with heart failure and stage 1 through stage 4 chronic kidney disease, or unspecified chronic kidney disease; E87.2 Acidosis; E87.1 Hypo-osmolality and hyponatremia; E86.0 Dehydration; K31.819 Angiodysplasia of stomach and duodenum without bleeding; I50.9 Heart failure, unspecified; N18.9 Chronic kidney disease, unspecified; D64.9 Anemia, unspecified; I48.0 Paroxysmal atrial fibrillation; I25.10 Atherosclerotic heart disease of native coronary artery without angina pectoris; K21.9 Gastro-esophageal reflux disease without esophagitis; G47.30 Sleep apnea, unspecified; F41.9 Anxiety disorder, unspecified; E78.5 Hyperlipidemia, unspecified; I25.2 Old myocardial infarction; Z79.4 Long term (current) use of insulin; Z87.891 Personal history of nicotine dependence; Z95.1 Presence of aortocoronary bypass graft; Z95.5 Presence of coronary angioplasty implant and graft; Z99.81 Dependence on supplemental oxygen
CPT/HCPCS: 36415; 71045; 80048; 80053; 81000; 82010; 82805; 82962; 83036; 83605; 83735; 83880; 84100; 84484; 85025; 85610; 85730; 87040; 87077; 87081; 87088; 87186; 93306; 96361; 96365; 96366

== ENCOUNTER → 2019-01-05 | Outpatient (RCR) | payer MEDICARE, OTHER ==
[2018-10-07 17:45] VITALS: BP 182/70
[2018-10-07 21:41] VITALS: BP 182/70
--- NOTE | 2018-10-07 21:45 | NUR ---
PATIENT BLOOD TRANSFUSION COMPLETE AT 2109. NO TRANSFUSION REACTION OBSERVED AT THIS TIME. PATIENT DISMISSED FROM FLOOR AT 2109 AND ASSISTED OUT TO HUSBANDS VEHICLE BY THIS RN IN .
[2018-10-11 14:02] LABS: BASOPHILS % (AUTO) 0 % (0-10); EOSINOPHILS # (AUTO) 0.2 10^3/uL (0.0-0.3); EOSINOPHILS % (AUTO) 5 % (0-10); HEMATOCRIT 23 % (35-52); HEMOGLOBIN 7.1 G/DL (11.5-16.0); LYMPHOCYTES % (AUTO) 21 % (12-44); MEAN CORPUSCULAR HEMOGLOBIN 30 PG (25-34); MEAN CORPUSCULAR HGB CONC 31 G/DL (32-36); MEAN CORPUSCULAR VOLUME 95 FL (80-99); MEAN PLATELET VOLUME 10.5 FL (7.4-10.4); MONOCYTES # (AUTO) 0.4 X 10^3 (0.0-1.0); MONOCYTES % (AUTO) 8 % (0-12); NEUTROPHILS % (AUTO) 66 % (42-75); PLATELET COUNT 140 10^3/uL (130-400); RED CELL DISTRIBUTION WIDTH 16.8 % (10.0-14.5); WHITE BLOOD COUNT 4.6 10^3/uL (4.3-11.0)
[2018-10-18 14:47] LABS: BASOPHILS % (AUTO) 1 % (0-10); EOSINOPHILS # (AUTO) 0.5 10^3/uL (0.0-0.3); EOSINOPHILS % (AUTO) 11 % (0-10); HEMATOCRIT 23 % (35-52); HEMOGLOBIN 7.4 G/DL (11.5-16.0); LYMPHOCYTES # (AUTO) 0.9 X 10^3 (1.0-4.0); LYMPHOCYTES % (AUTO) 21 % (12-44); MEAN CORPUSCULAR HEMOGLOBIN 30 PG (25-34); MEAN CORPUSCULAR HGB CONC 32 G/DL (32-36); MEAN CORPUSCULAR VOLUME 94 FL (80-99); MEAN PLATELET VOLUME 10.1 FL (7.4-10.4); MONOCYTES # (AUTO) 0.5 X 10^3 (0.0-1.0); MONOCYTES % (AUTO) 10 % (0-12); NEUTROPHILS # (AUTO) 2.5 X 10^3 (1.8-7.8); NEUTROPHILS % (AUTO) 58 % (42-75); PLATELET COUNT 157 10^3/uL (130-400); RED CELL DISTRIBUTION WIDTH 15.9 % (10.0-14.5); WHITE BLOOD COUNT 4.4 10^3/uL (4.3-11.0)
[2018-10-25 13:59] LABS: BASOPHILS # (AUTO) 0.1 10^3/uL (0.0-0.1); BASOPHILS % (AUTO) 1 % (0-10); EOSINOPHILS # (AUTO) 0.5 10^3/uL (0.0-0.3); EOSINOPHILS % (AUTO) 9 % (0-10); HEMATOCRIT 24 % (35-52); HEMOGLOBIN 7.8 G/DL (11.5-16.0); LYMPHOCYTES # (AUTO) 1.4 X 10^3 (1.0-4.0); LYMPHOCYTES % (AUTO) 25 % (12-44); MEAN CORPUSCULAR HGB CONC 33 G/DL (32-36); MEAN CORPUSCULAR VOLUME 93 FL (80-99); MONOCYTES # (AUTO) 0.4 X 10^3 (0.0-1.0); MONOCYTES % (AUTO) 8 % (0-12); NEUTROPHILS % (AUTO) 57 % (42-75); PLATELET COUNT 152 10^3/uL (130-400); RED CELL DISTRIBUTION WIDTH 15.1 % (10.0-14.5); WHITE BLOOD COUNT 5.4 10^3/uL (4.3-11.0)
[2018-10-25 14:00] LABS: MEAN CORPUSCULAR HEMOGLOBIN 30 PG (25-34)
[2018-11-02 15:38] LABS: BASOPHILS % (AUTO) 0 % (0-10); EOSINOPHILS % (AUTO) 0 % (0-10); HEMATOCRIT 25 % (35-52); HEMOGLOBIN 8.3 G/DL (11.5-16.0); LYMPHOCYTES # (AUTO) 0.5 X 10^3 (1.0-4.0); LYMPHOCYTES % (AUTO) 9 % (12-44); MEAN CORPUSCULAR HEMOGLOBIN 31 PG (25-34); MEAN CORPUSCULAR HGB CONC 34 G/DL (32-36); MEAN CORPUSCULAR VOLUME 91 FL (80-99); MEAN PLATELET VOLUME 10.1 FL (7.4-10.4); MONOCYTES # (AUTO) 0.8 X 10^3 (0.0-1.0); MONOCYTES % (AUTO) 14 % (0-12); NEUTROPHILS # (AUTO) 4.6 X 10^3 (1.8-7.8); NEUTROPHILS % (AUTO) 77 % (42-75); PLATELET COUNT 160 10^3/uL (130-400); RED CELL DISTRIBUTION WIDTH 14.9 % (10.0-14.5); WHITE BLOOD COUNT 5.9 10^3/uL (4.3-11.0)
[2018-11-09 14:06] LABS: BASOPHILS % (AUTO) 1 % (0-10); EOSINOPHILS # (AUTO) 0.4 10^3/uL (0.0-0.3); EOSINOPHILS % (AUTO) 7 % (0-10); HEMATOCRIT 25 % (35-52); HEMOGLOBIN 8.1 G/DL (11.5-16.0); LYMPHOCYTES # (AUTO) 1.4 X 10^3 (1.0-4.0); LYMPHOCYTES % (AUTO) 27 % (12-44); MEAN CORPUSCULAR HEMOGLOBIN 30 PG (25-34); MEAN CORPUSCULAR HGB CONC 33 G/DL (32-36); MEAN CORPUSCULAR VOLUME 93 FL (80-99); MEAN PLATELET VOLUME 9.5 FL (7.4-10.4); MONOCYTES # (AUTO) 0.5 X 10^3 (0.0-1.0); MONOCYTES % (AUTO) 10 % (0-12); NEUTROPHILS # (AUTO) 2.8 X 10^3 (1.8-7.8); NEUTROPHILS % (AUTO) 55 % (42-75); PLATELET COUNT 210 10^3/uL (130-400); RED CELL DISTRIBUTION WIDTH 15.1 % (10.0-14.5); WHITE BLOOD COUNT 5.1 10^3/uL (4.3-11.0)
[2018-11-09 14:43] LABS: ALBUMIN 3.4 GM/DL (3.2-4.5); BILIRUBIN,TOTAL 0.5 MG/DL (0.1-1.0); CALCIUM 9.3 MG/DL (8.5-10.1); CREATININE SERUM 1.63 MG/DL (0.60-1.30); POTASSIUM 4.7 MMOL/L (3.6-5.0); TOTAL PROTEIN 7.1 GM/DL (6.4-8.2)
[2018-11-15 13:44] LABS: BASOPHILS % (AUTO) 0 % (0-10); EOSINOPHILS # (AUTO) 0.2 10^3/uL (0.0-0.3); EOSINOPHILS % (AUTO) 3 % (0-10); HEMATOCRIT 21 % (35-52); LYMPHOCYTES # (AUTO) 0.8 X 10^3 (1.0-4.0); LYMPHOCYTES % (AUTO) 10 % (12-44); MEAN CORPUSCULAR HEMOGLOBIN 30 PG (25-34); MEAN CORPUSCULAR HGB CONC 32 G/DL (32-36); MEAN CORPUSCULAR VOLUME 96 FL (80-99); MONOCYTES # (AUTO) 0.5 X 10^3 (0.0-1.0); MONOCYTES % (AUTO) 6 % (0-12); NEUTROPHILS % (AUTO) 80 % (42-75); PLATELET COUNT 159 10^3/uL (130-400); RED CELL DISTRIBUTION WIDTH 14.6 % (10.0-14.5); WHITE BLOOD COUNT 7.5 10^3/uL (4.3-11.0)
[2018-11-15 13:46] LABS: HEMOGLOBIN 6.7 G/DL (11.5-16.0)
[2018-11-22 14:16] LABS: BASOPHILS % (AUTO) 1 % (0-10); EOSINOPHILS # (AUTO) 0.3 10^3/uL (0.0-0.3); EOSINOPHILS % (AUTO) 6 % (0-10); HEMATOCRIT 25 % (35-52); HEMOGLOBIN 8.3 G/DL (11.5-16.0); LYMPHOCYTES # (AUTO) 1.1 X 10^3 (1.0-4.0); LYMPHOCYTES % (AUTO) 25 % (12-44); MEAN CORPUSCULAR HEMOGLOBIN 31 PG (25-34); MEAN CORPUSCULAR HGB CONC 33 G/DL (32-36); MEAN CORPUSCULAR VOLUME 94 FL (80-99); MONOCYTES # (AUTO) 0.4 X 10^3 (0.0-1.0); MONOCYTES % (AUTO) 8 % (0-12); NEUTROPHILS # (AUTO) 2.7 X 10^3 (1.8-7.8); NEUTROPHILS % (AUTO) 60 % (42-75); PLATELET COUNT 150 10^3/uL (130-400); RED CELL DISTRIBUTION WIDTH 14.8 % (10.0-14.5); WHITE BLOOD COUNT 4.5 10^3/uL (4.3-11.0)
[2018-11-29 11:46] LABS: BASOPHILS # (AUTO) 0.1 10^3/uL (0.0-0.1); BASOPHILS % (AUTO) 1 % (0-10); EOSINOPHILS # (AUTO) 0.3 10^3/uL (0.0-0.3); EOSINOPHILS % (AUTO) 7 % (0-10); HEMATOCRIT 24 % (35-52); HEMOGLOBIN 7.6 G/DL (11.5-16.0); LYMPHOCYTES # (AUTO) 1.2 X 10^3 (1.0-4.0); LYMPHOCYTES % (AUTO) 25 % (12-44); MEAN CORPUSCULAR HEMOGLOBIN 31 PG (25-34); MEAN CORPUSCULAR HGB CONC 32 G/DL (32-36); MEAN CORPUSCULAR VOLUME 96 FL (80-99); MEAN PLATELET VOLUME 10.2 FL (7.4-10.4); MONOCYTES # (AUTO) 0.5 X 10^3 (0.0-1.0); MONOCYTES % (AUTO) 10 % (0-12); NEUTROPHILS # (AUTO) 2.7 X 10^3 (1.8-7.8); NEUTROPHILS % (AUTO) 56 % (42-75); PLATELET COUNT 190 10^3/uL (130-400); RED CELL DISTRIBUTION WIDTH 14.8 % (10.0-14.5); WHITE BLOOD COUNT 4.8 10^3/uL (4.3-11.0)
[2018-12-06 14:01] LABS: BASOPHILS % (AUTO) 1 % (0-10); EOSINOPHILS # (AUTO) 0.2 10^3/uL (0.0-0.3); EOSINOPHILS % (AUTO) 7 % (0-10); HEMATOCRIT 25 % (35-52); LYMPHOCYTES # (AUTO) 0.9 X 10^3 (1.0-4.0); LYMPHOCYTES % (AUTO) 25 % (12-44); MEAN CORPUSCULAR HEMOGLOBIN 29 PG (25-34); MEAN CORPUSCULAR HGB CONC 32 G/DL (32-36); MEAN CORPUSCULAR VOLUME 90 FL (80-99); MEAN PLATELET VOLUME 9.3 FL (7.4-10.4); MONOCYTES # (AUTO) 0.3 X 10^3 (0.0-1.0); MONOCYTES % (AUTO) 9 % (0-12); NEUTROPHILS # (AUTO) 2.1 X 10^3 (1.8-7.8); NEUTROPHILS % (AUTO) 59 % (42-75); PLATELET COUNT 153 10^3/uL (130-400); RED CELL DISTRIBUTION WIDTH 17.2 % (10.0-14.5); WHITE BLOOD COUNT 3.5 10^3/uL (4.3-11.0)
[2018-12-06 14:20] LABS: ALBUMIN 3.6 GM/DL (3.2-4.5); BILIRUBIN,TOTAL 0.4 MG/DL (0.1-1.0); CALCIUM 9.6 MG/DL (8.5-10.1); CREATININE SERUM 2.95 MG/DL (0.60-1.30); POTASSIUM 4.1 MMOL/L (3.6-5.0)
[2018-12-06 15:26] LABS: RETICULOCYTE % 1.38 % (0.50-2.40)
[2018-12-13 11:11] LABS: BASOPHILS % (AUTO) 1 % (0-10); EOSINOPHILS # (AUTO) 0.4 10^3/uL (0.0-0.3); EOSINOPHILS % (AUTO) 6 % (0-10); HEMATOCRIT 26 % (35-52); HEMOGLOBIN 8.7 G/DL (11.5-16.0); LYMPHOCYTES # (AUTO) 1.1 X 10^3 (1.0-4.0); LYMPHOCYTES % (AUTO) 18 % (12-44); MEAN CORPUSCULAR HEMOGLOBIN 30 PG (25-34); MEAN CORPUSCULAR HGB CONC 33 G/DL (32-36); MEAN CORPUSCULAR VOLUME 89 FL (80-99); MEAN PLATELET VOLUME 10.1 FL (7.4-10.4); MONOCYTES # (AUTO) 0.5 X 10^3 (0.0-1.0); MONOCYTES % (AUTO) 9 % (0-12); NEUTROPHILS % (AUTO) 66 % (42-75); PLATELET COUNT 183 10^3/uL (130-400); RED CELL DISTRIBUTION WIDTH 16.4 % (10.0-14.5); WHITE BLOOD COUNT 6.1 10^3/uL (4.3-11.0)
[2018-12-20 13:10] LABS: BASOPHILS % (AUTO) 1 % (0-10); EOSINOPHILS # (AUTO) 0.3 10^3/uL (0.0-0.3); EOSINOPHILS % (AUTO) 6 % (0-10); HEMATOCRIT 25 % (35-52); HEMOGLOBIN 8.1 G/DL (11.5-16.0); LYMPHOCYTES % (AUTO) 23 % (12-44); MEAN CORPUSCULAR HEMOGLOBIN 30 PG (25-34); MEAN CORPUSCULAR HGB CONC 33 G/DL (32-36); MEAN CORPUSCULAR VOLUME 92 FL (80-99); MEAN PLATELET VOLUME 9.8 FL (7.4-10.4); MONOCYTES # (AUTO) 0.4 X 10^3 (0.0-1.0); MONOCYTES % (AUTO) 9 % (0-12); NEUTROPHILS # (AUTO) 2.5 X 10^3 (1.8-7.8); NEUTROPHILS % (AUTO) 61 % (42-75); PLATELET COUNT 148 10^3/uL (130-400); RED CELL DISTRIBUTION WIDTH 16.8 % (10.0-14.5); WHITE BLOOD COUNT 4.2 10^3/uL (4.3-11.0)
[2018-12-27 13:52] LABS: BASOPHILS % (AUTO) 1 % (0-10); EOSINOPHILS # (AUTO) 0.2 10^3/uL (0.0-0.3); EOSINOPHILS % (AUTO) 4 % (0-10); HEMATOCRIT 25 % (35-52); HEMOGLOBIN 8.1 G/DL (11.5-16.0); LYMPHOCYTES # (AUTO) 0.8 X 10^3 (1.0-4.0); LYMPHOCYTES % (AUTO) 15 % (12-44); MEAN CORPUSCULAR HEMOGLOBIN 31 PG (25-34); MEAN CORPUSCULAR HGB CONC 33 G/DL (32-36); MEAN CORPUSCULAR VOLUME 93 FL (80-99); MEAN PLATELET VOLUME 10.1 FL (7.4-10.4); MONOCYTES # (AUTO) 0.5 X 10^3 (0.0-1.0); MONOCYTES % (AUTO) 9 % (0-12); NEUTROPHILS # (AUTO) 3.8 X 10^3 (1.8-7.8); NEUTROPHILS % (AUTO) 72 % (42-75); PLATELET COUNT 150 10^3/uL (130-400); RED CELL DISTRIBUTION WIDTH 16.4 % (10.0-14.5); WHITE BLOOD COUNT 5.3 10^3/uL (4.3-11.0)
[2018-12-27 21:01] VITALS: BP 103/34
[2018-12-27 21:16] VITALS: BP 107/44
[2018-12-27 23:38] VITALS: BP 103/43
[2019-01-03 13:43] LABS: BASOPHILS % (AUTO) 0 % (0-10); EOSINOPHILS # (AUTO) 0.2 10^3/uL (0.0-0.3); EOSINOPHILS % (AUTO) 5 % (0-10); HEMATOCRIT 24 % (35-52); HEMOGLOBIN 7.8 G/DL (11.5-16.0); LYMPHOCYTES % (AUTO) 27 % (12-44); MEAN CORPUSCULAR HEMOGLOBIN 30 PG (25-34); MEAN CORPUSCULAR HGB CONC 32 G/DL (32-36); MEAN CORPUSCULAR VOLUME 95 FL (80-99); MEAN PLATELET VOLUME 9.1 FL (7.4-10.4); MONOCYTES # (AUTO) 0.3 X 10^3 (0.0-1.0); MONOCYTES % (AUTO) 9 % (0-12); NEUTROPHILS # (AUTO) 2.1 X 10^3 (1.8-7.8); NEUTROPHILS % (AUTO) 59 % (42-75); PLATELET COUNT 124 10^3/uL (130-400); RED CELL DISTRIBUTION WIDTH 16.8 % (10.0-14.5); WHITE BLOOD COUNT 3.6 10^3/uL (4.3-11.0)
[~2019-01-05] VITALS: Ht 162.6 cm; Wt 94.4 kg
[~2019-01-05] MED LIST changes: +AZIT250T12 PO; +CEPH250C PO; +CYANOCOBALAMIN INJ 1000 MCG/ML (CANCER CENTER) INJ ONE; +CYANOCOBALAMIN INJ 1000 MCG/ML (CANCER CENTER) ONE; +FERRIC CARBOXYMALTOSE (CANCER) 750 MG in NS (IVPB) CANCER CENTER 250 ML IV SCH; +NS (IVPB) CANCER CENTER 250 ML ONE; +NS IV 1000 ML (CANCER CTR) 1,000 ML ONE; +NS IV 500 ML (CANCER CENTER) 500 ML ONE; +NS IV 500 ML 500 ML ONE
== END | disposition home or self-care (01) ==
LOC: ONC 10-07 16:00 → 4TH 10-07 16:36 → ONC 10-07 16:36
PROVIDERS: ATTEND Internal Medicine Hematology & Oncology
DX: D50.0 Iron deficiency anemia secondary to blood loss (chronic) (principal); E53.8 Deficiency of other specified B group vitamins; K31.819 Angiodysplasia of stomach and duodenum without bleeding; K74.60 Unspecified cirrhosis of liver; I25.10 Atherosclerotic heart disease of native coronary artery without angina pectoris; E03.9 Hypothyroidism, unspecified; I12.9 Hypertensive chronic kidney disease with stage 1 through stage 4 chronic kidney disease, or unspecified chronic kidney disease; N18.3 Chronic kidney disease, stage 3 (moderate); E11.22 Type 2 diabetes mellitus with diabetic chronic kidney disease; I48.91 Unspecified atrial fibrillation; Z79.899 Other long term (current) drug therapy
CPT/HCPCS: 36430; 36591; 80053; 82728; 84443; 85025; 85045; 86850; 86900; 86901; 86902; 86922; 96365; 96372; 99213

== ENCOUNTER 2019-04-04 14:01 | Outpatient (RCR) | payer MEDICARE ==
[2019-01-10 14:08] LABS: BASOPHILS % (AUTO) 1 % (0-10); EOSINOPHILS # (AUTO) 0.2 10^3/uL (0.0-0.3); EOSINOPHILS % (AUTO) 7 % (0-10); HEMATOCRIT 28 % (35-52); HEMOGLOBIN 8.9 G/DL (11.5-16.0); LYMPHOCYTES # (AUTO) 0.9 X 10^3 (1.0-4.0); LYMPHOCYTES % (AUTO) 28 % (12-44); MEAN CORPUSCULAR HEMOGLOBIN 31 PG (25-34); MEAN CORPUSCULAR HGB CONC 32 G/DL (32-36); MEAN CORPUSCULAR VOLUME 95 FL (80-99); MEAN PLATELET VOLUME 9.3 FL (7.4-10.4); MONOCYTES # (AUTO) 0.3 X 10^3 (0.0-1.0); MONOCYTES % (AUTO) 10 % (0-12); NEUTROPHILS # (AUTO) 1.8 X 10^3 (1.8-7.8); NEUTROPHILS % (AUTO) 54 % (42-75); PLATELET COUNT 128 10^3/uL (130-400); WHITE BLOOD COUNT 3.3 10^3/uL (4.3-11.0)
[2019-01-10 14:24] LABS: CALCIUM 9.5 MG/DL (8.5-10.1); CREATININE SERUM 2.06 MG/DL (0.60-1.30); MAGNESIUM 1.9 MG/DL (1.8-2.4); POTASSIUM 4.7 MMOL/L (3.6-5.0)
[2019-01-17 13:45] LABS: BASOPHILS % (AUTO) 1 % (0-10); EOSINOPHILS # (AUTO) 0.3 10^3/uL (0.0-0.3); EOSINOPHILS % (AUTO) 6 % (0-10); HEMATOCRIT 29 % (35-52); HEMOGLOBIN 9.5 G/DL (11.5-16.0); LYMPHOCYTES # (AUTO) 1.2 X 10^3 (1.0-4.0); LYMPHOCYTES % (AUTO) 24 % (12-44); MEAN CORPUSCULAR HEMOGLOBIN 30 PG (25-34); MEAN CORPUSCULAR HGB CONC 33 G/DL (32-36); MEAN CORPUSCULAR VOLUME 92 FL (80-99); MEAN PLATELET VOLUME 9.9 FL (7.4-10.4); MONOCYTES # (AUTO) 0.5 X 10^3 (0.0-1.0); MONOCYTES % (AUTO) 10 % (0-12); NEUTROPHILS % (AUTO) 59 % (42-75); PLATELET COUNT 161 10^3/uL (130-400); RED CELL DISTRIBUTION WIDTH 14.2 % (10.0-14.5); WHITE BLOOD COUNT 5.1 10^3/uL (4.3-11.0)
[2019-01-17 14:22] LABS: BILIRUBIN,TOTAL 0.9 MG/DL (0.1-1.0); CALCIUM 10.2 MG/DL (8.5-10.1); CREATININE SERUM 2.25 MG/DL (0.60-1.30); POTASSIUM 4.1 MMOL/L (3.6-5.0); TOTAL PROTEIN 7.9 GM/DL (6.4-8.2)
[2019-01-17 14:48] LABS: BILIRUBIN,URINE NEGATIVE (NEGATIVE); CLARITY,URINE CLEAR; COLOR,URINE YELLOW; GLUCOSE, URINE (UA) 1+ (NEGATIVE); KETONES,URINE NEGATIVE (NEGATIVE); LEUKOCYTE ESTERASE ,URINE 1+ (NEGATIVE); NITRITE,URINE NEGATIVE (NEGATIVE); PH,URINE 5 (5-9); PROTEIN,URINE 1+ (NEGATIVE)
[2019-01-17 15:03] LABS: BACTERIA,URINE FEW /HPF
[2019-01-24 14:14] LABS: BASOPHILS % (AUTO) 1 % (0-10); EOSINOPHILS # (AUTO) 0.3 10^3/uL (0.0-0.3); EOSINOPHILS % (AUTO) 7 % (0-10); HEMATOCRIT 27 % (35-52); HEMOGLOBIN 9.3 G/DL (11.5-16.0); LYMPHOCYTES # (AUTO) 0.9 X 10^3 (1.0-4.0); LYMPHOCYTES % (AUTO) 20 % (12-44); MEAN CORPUSCULAR HEMOGLOBIN 31 PG (25-34); MEAN CORPUSCULAR HGB CONC 34 G/DL (32-36); MEAN CORPUSCULAR VOLUME 91 FL (80-99); MEAN PLATELET VOLUME 10.1 FL (7.4-10.4); MONOCYTES # (AUTO) 0.4 X 10^3 (0.0-1.0); MONOCYTES % (AUTO) 8 % (0-12); NEUTROPHILS % (AUTO) 64 % (42-75); PLATELET COUNT 141 10^3/uL (130-400); RED CELL DISTRIBUTION WIDTH 13.6 % (10.0-14.5); WHITE BLOOD COUNT 4.7 10^3/uL (4.3-11.0)
[2019-01-31 13:29] LABS: BASOPHILS % (AUTO) 1 % (0-10); EOSINOPHILS # (AUTO) 0.4 10^3/uL (0.0-0.3); EOSINOPHILS % (AUTO) 6 % (0-10); HEMATOCRIT 29 % (35-52); HEMOGLOBIN 9.9 G/DL (11.5-16.0); LYMPHOCYTES # (AUTO) 1.1 X 10^3 (1.0-4.0); LYMPHOCYTES % (AUTO) 19 % (12-44); MEAN CORPUSCULAR HEMOGLOBIN 31 PG (25-34); MEAN CORPUSCULAR HGB CONC 35 G/DL (32-36); MEAN CORPUSCULAR VOLUME 90 FL (80-99); MEAN PLATELET VOLUME 10.1 FL (7.4-10.4); MONOCYTES # (AUTO) 0.5 X 10^3 (0.0-1.0); MONOCYTES % (AUTO) 8 % (0-12); NEUTROPHILS # (AUTO) 4.1 X 10^3 (1.8-7.8); NEUTROPHILS % (AUTO) 67 % (42-75); PLATELET COUNT 174 10^3/uL (130-400); RED CELL DISTRIBUTION WIDTH 13.5 % (10.0-14.5); WHITE BLOOD COUNT 6.1 10^3/uL (4.3-11.0)
[2019-02-07 15:31] LABS: HEMATOCRIT 31 % (35-52); HEMOGLOBIN 10.7 G/DL (11.5-16.0); MEAN CORPUSCULAR HEMOGLOBIN 31 PG (25-34); MEAN CORPUSCULAR HGB CONC 35 G/DL (32-36); MEAN CORPUSCULAR VOLUME 90 FL (80-99); RED CELL DISTRIBUTION WIDTH 13.1 % (10.0-14.5); WHITE BLOOD COUNT 5.6 10^3/uL (4.3-11.0)
[2019-02-07 15:32] LABS: BASOPHILS % (AUTO) 0 % (0-10); EOSINOPHILS # (AUTO) 0.2 10^3/uL (0.0-0.3); EOSINOPHILS % (AUTO) 4 % (0-10); LYMPHOCYTES % (AUTO) 18 % (12-44); MEAN PLATELET VOLUME 10.3 FL (7.4-10.4); MONOCYTES # (AUTO) 0.5 X 10^3 (0.0-1.0); MONOCYTES % (AUTO) 10 % (0-12); NEUTROPHILS # (AUTO) 3.8 X 10^3 (1.8-7.8); NEUTROPHILS % (AUTO) 68 % (42-75); PLATELET COUNT 162 10^3/uL (130-400)
[2019-02-15 13:44] LABS: BASOPHILS % (AUTO) 0 % (0-10); EOSINOPHILS # (AUTO) 0.3 10^3/uL (0.0-0.3); EOSINOPHILS % (AUTO) 7 % (0-10); HEMATOCRIT 29 % (35-52); HEMOGLOBIN 9.9 G/DL (11.5-16.0); LYMPHOCYTES # (AUTO) 1.4 X 10^3 (1.0-4.0); LYMPHOCYTES % (AUTO) 30 % (12-44); MEAN CORPUSCULAR HEMOGLOBIN 31 PG (25-34); MEAN CORPUSCULAR HGB CONC 34 G/DL (32-36); MEAN CORPUSCULAR VOLUME 91 FL (80-99); MEAN PLATELET VOLUME 10.4 FL (7.4-10.4); MONOCYTES # (AUTO) 0.5 X 10^3 (0.0-1.0); MONOCYTES % (AUTO) 10 % (0-12); NEUTROPHILS # (AUTO) 2.4 X 10^3 (1.8-7.8); NEUTROPHILS % (AUTO) 53 % (42-75); PLATELET COUNT 126 10^3/uL (130-400); RED CELL DISTRIBUTION WIDTH 12.6 % (10.0-14.5); WHITE BLOOD COUNT 4.6 10^3/uL (4.3-11.0)
[2019-02-21 13:37] LABS: BASOPHILS # (AUTO) 0.1 10^3/uL (0.0-0.1); BASOPHILS % (AUTO) 1 % (0-10); EOSINOPHILS # (AUTO) 0.3 10^3/uL (0.0-0.3); EOSINOPHILS % (AUTO) 6 % (0-10); HEMATOCRIT 29 % (35-52); HEMOGLOBIN 10.1 G/DL (11.5-16.0); LYMPHOCYTES # (AUTO) 1.1 X 10^3 (1.0-4.0); LYMPHOCYTES % (AUTO) 22 % (12-44); MEAN CORPUSCULAR HEMOGLOBIN 31 PG (25-34); MEAN CORPUSCULAR HGB CONC 35 G/DL (32-36); MEAN CORPUSCULAR VOLUME 89 FL (80-99); MEAN PLATELET VOLUME 10.5 FL (7.4-10.4); MONOCYTES # (AUTO) 0.5 X 10^3 (0.0-1.0); MONOCYTES % (AUTO) 10 % (0-12); NEUTROPHILS # (AUTO) 3.3 X 10^3 (1.8-7.8); NEUTROPHILS % (AUTO) 62 % (42-75); PLATELET COUNT 145 10^3/uL (130-400); RED CELL DISTRIBUTION WIDTH 12.4 % (10.0-14.5); WHITE BLOOD COUNT 5.3 10^3/uL (4.3-11.0)
[2019-02-28 13:33] LABS: BASOPHILS % (AUTO) 0 % (0-10); EOSINOPHILS # (AUTO) 0.2 10^3/uL (0.0-0.3); EOSINOPHILS % (AUTO) 7 % (0-10); HEMATOCRIT 27 % (35-52); HEMOGLOBIN 9.1 G/DL (11.5-16.0); LYMPHOCYTES # (AUTO) 0.8 X 10^3 (1.0-4.0); LYMPHOCYTES % (AUTO) 27 % (12-44); MEAN CORPUSCULAR HEMOGLOBIN 31 PG (25-34); MEAN CORPUSCULAR HGB CONC 34 G/DL (32-36); MEAN CORPUSCULAR VOLUME 91 FL (80-99); MEAN PLATELET VOLUME 10.3 FL (7.4-10.4); MONOCYTES # (AUTO) 0.3 X 10^3 (0.0-1.0); MONOCYTES % (AUTO) 9 % (0-12); NEUTROPHILS # (AUTO) 1.7 X 10^3 (1.8-7.8); NEUTROPHILS % (AUTO) 56 % (42-75); PLATELET COUNT 117 10^3/uL (130-400); RED CELL DISTRIBUTION WIDTH 12.8 % (10.0-14.5)
[2019-03-07 13:38] LABS: BASOPHILS % (AUTO) 0 % (0-10); EOSINOPHILS # (AUTO) 0.2 10^3/uL (0.0-0.3); EOSINOPHILS % (AUTO) 6 % (0-10); HEMATOCRIT 28 % (35-52); HEMOGLOBIN 9.5 G/DL (11.5-16.0); LYMPHOCYTES # (AUTO) 0.9 X 10^3 (1.0-4.0); LYMPHOCYTES % (AUTO) 23 % (12-44); MEAN CORPUSCULAR HEMOGLOBIN 31 PG (25-34); MEAN CORPUSCULAR HGB CONC 34 G/DL (32-36); MEAN CORPUSCULAR VOLUME 90 FL (80-99); MONOCYTES # (AUTO) 0.3 X 10^3 (0.0-1.0); MONOCYTES % (AUTO) 9 % (0-12); NEUTROPHILS # (AUTO) 2.2 X 10^3 (1.8-7.8); NEUTROPHILS % (AUTO) 61 % (42-75); PLATELET COUNT 118 10^3/uL (130-400); RED CELL DISTRIBUTION WIDTH 12.6 % (10.0-14.5); WHITE BLOOD COUNT 3.7 10^3/uL (4.3-11.0)
[2019-03-07 13:59] LABS: BILIRUBIN,URINE NEGATIVE (NEGATIVE); CLARITY,URINE SLIGHTLY CLOUDY; COLOR,URINE YELLOW; GLUCOSE, URINE (UA) 4+ (NEGATIVE); KETONES,URINE NEGATIVE (NEGATIVE); LEUKOCYTE ESTERASE ,URINE NEGATIVE (NEGATIVE); NITRITE,URINE NEGATIVE (NEGATIVE); PH,URINE 6 (5-9); PROTEIN,URINE 1+ (NEGATIVE)
[2019-03-07 14:14] LABS: BACTERIA,URINE TRACE /HPF
[2019-03-14 11:55] LABS: BASOPHILS % (AUTO) 1 % (0-10); EOSINOPHILS # (AUTO) 0.3 10^3/uL (0.0-0.3); EOSINOPHILS % (AUTO) 8 % (0-10); HEMATOCRIT 27 % (35-52); HEMOGLOBIN 9.1 G/DL (11.5-16.0); LYMPHOCYTES % (AUTO) 24 % (12-44); MEAN CORPUSCULAR HEMOGLOBIN 31 PG (25-34); MEAN CORPUSCULAR HGB CONC 34 G/DL (32-36); MEAN CORPUSCULAR VOLUME 92 FL (80-99); MONOCYTES # (AUTO) 0.4 X 10^3 (0.0-1.0); MONOCYTES % (AUTO) 8 % (0-12); NEUTROPHILS # (AUTO) 2.5 X 10^3 (1.8-7.8); NEUTROPHILS % (AUTO) 60 % (42-75); PLATELET COUNT 130 10^3/uL (130-400); RED CELL DISTRIBUTION WIDTH 13.2 % (10.0-14.5); WHITE BLOOD COUNT 4.2 10^3/uL (4.3-11.0)
[2019-03-14 12:13] LABS: ALBUMIN 3.6 GM/DL (3.2-4.5); BILIRUBIN,TOTAL 0.5 MG/DL (0.1-1.0); CALCIUM 9.7 MG/DL (8.5-10.1); CREATININE SERUM 1.91 MG/DL (0.60-1.30); POTASSIUM 4.4 MMOL/L (3.6-5.0); TOTAL PROTEIN 7.7 GM/DL (6.4-8.2)
[2019-03-21 13:43] LABS: BASOPHILS % (AUTO) 1 % (0-10); EOSINOPHILS # (AUTO) 0.2 10^3/uL (0.0-0.3); EOSINOPHILS % (AUTO) 5 % (0-10); HEMATOCRIT 23 % (35-52); HEMOGLOBIN 7.4 G/DL (11.5-16.0); LYMPHOCYTES # (AUTO) 0.8 X 10^3 (1.0-4.0); LYMPHOCYTES % (AUTO) 23 % (12-44); MEAN CORPUSCULAR HEMOGLOBIN 31 PG (25-34); MEAN CORPUSCULAR HGB CONC 33 G/DL (32-36); MEAN CORPUSCULAR VOLUME 95 FL (80-99); MEAN PLATELET VOLUME 9.9 FL (7.4-10.4); MONOCYTES # (AUTO) 0.3 X 10^3 (0.0-1.0); MONOCYTES % (AUTO) 8 % (0-12); NEUTROPHILS % (AUTO) 63 % (42-75); PLATELET COUNT 124 10^3/uL (130-400); RED CELL DISTRIBUTION WIDTH 13.3 % (10.0-14.5); WHITE BLOOD COUNT 3.2 10^3/uL (4.3-11.0)
[2019-03-28 14:18] LABS: BASOPHILS % (AUTO) 1 % (0-10); EOSINOPHILS # (AUTO) 0.2 10^3/uL (0.0-0.3); EOSINOPHILS % (AUTO) 5 % (0-10); HEMATOCRIT 26 % (35-52); HEMOGLOBIN 8.5 G/DL (11.5-16.0); LYMPHOCYTES # (AUTO) 0.8 X 10^3 (1.0-4.0); LYMPHOCYTES % (AUTO) 23 % (12-44); MEAN CORPUSCULAR HEMOGLOBIN 31 PG (25-34); MEAN CORPUSCULAR HGB CONC 33 G/DL (32-36); MEAN CORPUSCULAR VOLUME 95 FL (80-99); MONOCYTES # (AUTO) 0.3 X 10^3 (0.0-1.0); MONOCYTES % (AUTO) 9 % (0-12); NEUTROPHILS # (AUTO) 2.3 X 10^3 (1.8-7.8); NEUTROPHILS % (AUTO) 63 % (42-75); PLATELET COUNT 160 10^3/uL (130-400); RED CELL DISTRIBUTION WIDTH 14.6 % (10.0-14.5); WHITE BLOOD COUNT 3.6 10^3/uL (4.3-11.0)
[~2019-04-04 14:01] MED LIST changes: -BUME1TAB4 PO; +BUME1TAB8 PO; -CYANOCOBALAMIN INJ 1000 MCG/ML (CANCER CENTER) INJ ONE; -NS IV 1000 ML (CANCER CTR) 1,000 ML ONE; -NS IV 500 ML (CANCER CENTER) 500 ML ONE; -NS IV 500 ML 500 ML ONE; +ONDANSETRON MDV (CANCER CENTER 8 MG in NS (IVPB) CANCER CENTER 50 ML IV ONE; -ROSU40TA22 PO; +ROSU40TA23 PO; -ROSU5TAB12 PO; +ROSU5TAB13 PO; -TIZA4TAB3 PO; +TIZA4TAB4 PO
[2019-04-04 14:22] LABS: BASOPHILS % (AUTO) 1 % (0-10); EOSINOPHILS # (AUTO) 0.3 10^3/uL (0.0-0.3); EOSINOPHILS % (AUTO) 7 % (0-10); HEMATOCRIT 27 % (35-52); LYMPHOCYTES # (AUTO) 1.2 X 10^3 (1.0-4.0); LYMPHOCYTES % (AUTO) 27 % (12-44); MEAN CORPUSCULAR HEMOGLOBIN 31 PG (25-34); MEAN CORPUSCULAR HGB CONC 33 G/DL (32-36); MEAN CORPUSCULAR VOLUME 95 FL (80-99); MEAN PLATELET VOLUME 9.7 FL (7.4-10.4); MONOCYTES # (AUTO) 0.4 X 10^3 (0.0-1.0); MONOCYTES % (AUTO) 9 % (0-12); NEUTROPHILS # (AUTO) 2.6 X 10^3 (1.8-7.8); NEUTROPHILS % (AUTO) 57 % (42-75); PLATELET COUNT 178 10^3/uL (130-400); RED CELL DISTRIBUTION WIDTH 14.7 % (10.0-14.5); WHITE BLOOD COUNT 4.5 10^3/uL (4.3-11.0)
[2019-04-11] MEDS ORDERED: PROM25TA14 PO (10:36)
[2019-04-11] MEDS ORDERED: LACT10SO PO (10:36)
[2019-04-11] MEDS ORDERED: INSU100I14 SQ (10:36)
[2019-04-12] MEDS ORDERED: LEVO750T9 PO (11:20)
== END 2019-04-10 | disposition home or self-care (01) ==
LOC: ONC 14:01
PROVIDERS: ATTEND Internal Medicine Hematology & Oncology
DX: D50.0 Iron deficiency anemia secondary to blood loss (chronic) (principal); E53.8 Deficiency of other specified B group vitamins; K31.819 Angiodysplasia of stomach and duodenum without bleeding; K74.60 Unspecified cirrhosis of liver; I25.10 Atherosclerotic heart disease of native coronary artery without angina pectoris; E03.9 Hypothyroidism, unspecified; I12.9 Hypertensive chronic kidney disease with stage 1 through stage 4 chronic kidney disease, or unspecified chronic kidney disease; N18.3 Chronic kidney disease, stage 3 (moderate); E11.22 Type 2 diabetes mellitus with diabetic chronic kidney disease; I48.91 Unspecified atrial fibrillation; Z79.899 Other long term (current) drug therapy; R82.998 Other abnormal findings in urine
CPT/HCPCS: 36430; 36591; 80048; 80053; 81000; 82728; 83735; 83880; 84443; 85025; 86850; 86900; 86901; 86902; 86922; 87088; 96365; 96372; 96374

== ENCOUNTER 2019-04-10 13:02 | Observation (INO) | payer MEDICARE ==
[~2019-04-10] VITALS: Ht 162.5 cm; Wt 82.4 kg
[~2019-04-10 13:02] MED LIST changes: -CYANOCOBALAMIN INJ 1000 MCG/ML (CANCER CENTER) ONE; -FERRIC CARBOXYMALTOSE (CANCER) 750 MG in NS (IVPB) CANCER CENTER 250 ML IV SCH; -NS (IVPB) CANCER CENTER 250 ML ONE; -ONDANSETRON MDV (CANCER CENTER 8 MG in NS (IVPB) CANCER CENTER 50 ML IV ONE
[2019-04-10] MEDS ORDERED: NS IV 1000 ML 1,000 ML IV SCH (13:19)
[2019-04-10] MEDS ORDERED: ONDANSETRON 4 MG/2 ML (SDV) Z0FRAN IVP ONE (13:30)
--- NOTE | 2019-04-10 13:38 | ED GI ---
General Chief Complaint: Abdominal/GI Problems Stated Complaint: VOMITING Nursing Triage Note: VOMITING X1 WEEK. Sepsis Screen: No Definite Risk History of Present Illness Date Seen by Provider: Apr 10, 2019 Time Seen by Provider: 13:20 Initial Comments Patient reports vomiting over the last 2-3 weeks and productive cough. 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 [facility] Reports yesterday. She denies any problems with chronic constipation or diarrhea. She has a port in her right chest wall Timing/Duration: Getting Worse Severity/Quality: Moderate Location: Generalized Abdomen Radiation: No Radiation Associated Symptoms: Fatigue, Nausea/Vomiting, Weakness Allergies and Home Medications Allergies Coded Allergies: Uyctpso-Yxe-Htu Reductase Inhibitor (Verified Allergy, Intermediate, GI UPSET, N/V, 11/06/17) cefadroxil (Unverified Allergy, Mild, 01/01/17) Sulfa (Sulfonamide Antibiotics) (Verified Allergy, Unknown, 06/18/18) Home Medications Acetaminophen 325 Mg Tablet, 325 MG PO Q4H PRN for PAIN-MILD, (Reported) Bumetanide 1 Mg Tablet, 1 MG PO DAILY, (Reported) Cephalexin 250 Mg Capsule, 500 MG PO BID Prescribed by: MICHELLE GARCIA on 12/28/18 1004 Cetirizine HCl 10 Mg Tablet, 10 MG PO DAILY, (Reported) Digoxin 125 Mcg Tablet, 125 MCG PO Q48H, (Reported) TAKES OPPOSITE DAYS OF LEVOTHYRXOINE Diphenhydramine HCl 25 Mg Capsule, 25 MG PO Q6H PRN for ALLERGIES, (Reported) Folic Acid 1 Mg Tablet, 1 MG PO DAILY, (Reported) Insulin Aspart 300 Units/3 Ml Solution, 4 UNITS SQ DAILY, (Reported) Insulin Aspart 300 Units/3 Ml Solution, 4 UNITS SQ BIDAC PRN for HIGH BLOOD SUGAR, (Reported) Insulin NPH Human Isophane 100 Unit/1 Ml Vial, 14 UNIT SQ DAILY, (Reported) Levothyroxine Sodium 175 Mcg Tablet, 175 MCG PO Q48H, (Reported) TAKES OPPOSITE DAY OF DIGOXIN Magnesium Oxide 400 Mg Tablet, 400 MG PO BID, (Reported) Metoprolol Tartrate 25 Mg Tablet, 25 MG PO BID, (Reported) Nitroglycerin 0.4 Mg Tab.subl, 0.4 MG SL UD PRN for CHEST PAIN, (Reported) Omeprazole 40 Mg Capsule.dr, 40 MG PO BID, (Reported) Ondansetron HCl 8 Mg Tablet, 8 MG PO DAILY PRN for NAUSEA/VOMITING-1ST LINE, (Reported) Sennosides/Docusate Sodium 1 Each Tablet, 1 TAB PO HS PRN for CONSTIPATION-5TH LINE, (Reported) Tizanidine HCl 4 Mg Tablet, 4 MG PO TID PRN for MUSCLE SPASMS, (Reported) Tramadol HCl 50 Mg Tablet, 50 MG PO TID PRN for PAIN-MODERATE, (Reported) Patient Home Medication List Home Medication List Reviewed: Yes Review of Systems Review of Systems Constitutional: see HPI; No dizziness, No fever; malaise, weakness EENTM: No Symptoms Reported, See HPI Respiratory: See HPI, Cough Cardiovascular: No Symptoms Reported, See HPI Gastrointestinal: See HPI; Denies Diarrhea; Nausea, Poor Appetite, Vomiting Hematologic/Lymphatic: See HPI, Anemia All Other Systems Reviewed Negative Unless Noted: Yes Past Bahdmnj-Hnijps-Zkgmgb Hx Past Med/Social Hx: Reviewed Nursing Past Med/Soc Hx Patient Social History Alcohol Use: Denies Use Recreational Drug Use: No Smoking Status: Former Smoker Type Used: Cigarettes Former Smoker, Quit: May 20, 1980 Recent Foreign Travel: No Contact w/Someone Who Travel: No Recent Infectious Disease Expo: No Recent Hopitalizations: No Immunizations Up To Date Tetanus Booster (TDap): Unknown PED Vaccines UTD: Yes Date of Pneumonia Vaccine: Jan 27, 2018 Date of Influenza Vaccine: May 18, 2018 Seasonal Allergies Seasonal Allergies: Yes Past Medical History Surgeries: Yes Adenoidectomy, Cardiac, CABG, Coronary Stent, Open Heart Surgery, Orthopedic, Tonsillectomy, Tubal Ligation Respiratory: Yes (LEFT PLEURAL EFFUSION) Sleep Apnea Currently Using CPAP: No Currently Using BIPAP: No Cardiac: Yes (CHF, STENT X1; CABG 02/16/2018 x 4 @ [facility]) Atrial Fibrillation, Chronic Edema/Swelling, Coronary Artery Disease, Heart A ttack, High Cholesterol, Hypertension Neurological: Yes Reproductive Disorders: No Female Reproductive Disorders: Denies GRIPS History: Menopausal Sexually Transmitted Disease: No HIV/AIDS: No Genitourinary: Yes Renal Failure Gastrointestinal: Yes (GAVE) Gastroesophageal Reflux, Gastrointestinal Bleed, Diverticulosis, Hemorrhoids, Polyps Musculoskeletal: Yes (POOR AMBULATION--USES WALKER SINCE CABG) Degenerate Disk Disease, Arthritis, Chronic Back Pain, Fractures Endocrine: Yes Diabetes, Insulin dep HEENT: No Loss of Vision: Denies Hearing Impairment: Denies Cancer: No Psychosocial: No Anxiety Integumentary: Yes Psoriasis Blood Disorders: Yes (acute anemia) Adverse Reaction/Blood Tranf: Yes (Antibody JKA) Family Medical History Arthritis G8 BROTHER Completed stroke 19 MOTHER FH: anemia 19 MOTHER FH: lupus G8 SISTER FH: throat cancer 19 FATHER Hypertension G8 SISTER Myocardial infarction 19 MOTHER Thyroid disease 19 MOTHER G8 SISTER Hypertension, Stroke, Other Conditions/Hx Physical Exam Vital Signs Vital Signs - First Documented 04/10/19 13:03 Temp 36.7 Pulse 81 Resp 16 B/P (MAP) 127/76 (93) Pulse Ox 91 O2 Delivery Room Air Capillary Refill : Less Than 3 Seconds Height/Weight/BMI Height: 5'4.00" Weight: 196lbs. 5.0oz. 89.011965lq; 31.00 BMI Method:Stated General Appearance: WD/WN, mild distress HEENT: PERRL/EOMI, normal ENT inspection, TMs normal, pharynx normal Neck: non-tender, full range of motion, supple, normal inspection Respiratory: chest non-tender, lungs clear, normal breath sounds Cardiovascular: normal peripheral pulses, regular rate, rhythm Gastrointestinal: normal bowel sounds, soft; No distended, No guarding, No rebound; tenderness (generalized.) Extremities: normal range of motion, non-tender, normal inspection, no pedal edema, normal capillary refill Neurologic/Psychiatric: no motor/sensory deficits, alert, normal mood/affect Skin: normal color, warm/dry Focused Exam Sepsis Stage: Ruled Out Time of Focused Exam: 16:00 Respiratory: Chest Non Tender, Lungs Clear Cardiovascular: Regular Rate, Rhythm, No Edema, Normal Peripheral Pulses Capillary Refill: Less Than 3 Seconds Skin: normal color, warm/dry; No diaphoresis, No rash, No ulcerations Procedures/Interventions Date of ETT Placement: May 30, 2018 Time of ETT Placement: 1330 Progress/Results/Core Measures Results/Orders Lab Results Laboratory Tests Test 04/10/19 13:30 04/10/19 13:46 Range/Units White Blood Count 7.9 4.3-11.0 10^3/uL Red Blood Count 3.06 L 4.35-5.85 10^6/uL Hemoglobin 9.6 L 11.5-16.0 G/DL Hematocrit 29 L 35-52 % Mean Corpuscular Volume 95 80-99 FL Mean Corpuscular Hemoglobin 31 25-34 PG Mean Corpuscular Hemoglobin Concent 33 32-36 G/DL Red Cell Distribution Width 14.8 H 10.0-14.5 % Platelet Count 228 130-400 10^3/uL Mean Platelet Volume 10.1 7.4-10.4 FL Neutrophils (%) (Auto) 72 42-75 % Lymphocytes (%) (Auto) 13 12-44 % Monocytes (%) (Auto) 9 0-12 % Eosinophils (%) (Auto) 6 0-10 % Basophils (%) (Auto) 1 0-10 % Neutrophils # (Auto) 5.7 1.8-7.8 X 10^3 Lymphocytes # (Auto) 1.1 1.0-4.0 X 10^3 Monocytes # (Auto) 0.7 0.0-1.0 X 10^3 Eosinophils # (Auto) 0.5 H 0.0-0.3 10^3/uL Basophils # (Auto) 0.0 0.0-0.1 10^3/uL Prothrombin Time 13.7 12.2-14.7 SEC INR Comment 1.0 0.8-1.4 Activated Partial Thromboplast Time 30 24-35 SEC Sodium Level 139 135-145 MMOL/L Potassium Level 4.5 3.6-5.0 MMOL/L Chloride Level 102 98-107 MMOL/L Carbon Dioxide Level 21 21-32 MMOL/L Anion Gap 16 H 5-14 MMOL/L Blood Urea Nitrogen 53 H 7-18 MG/DL Creatinine 4.15 H 0.60-1.30 MG/DL Estimat Glomerular Filtration Rate 11 BUN/Creatinine Ratio 13 Glucose Level 278 H 70-105 MG/DL Calcium Level 9.5 8.5-10.1 MG/DL Corrected Calcium 9.6 8.5-10.1 MG/DL Total Bilirubin 0.7 0.1-1.0 MG/DL Aspartate Amino Transf (AST/SGOT) 17 5-34 U/L Alanine Aminotransferase (ALT/SGPT) 10 0-55 U/L Alkaline Phosphatase 82 40-136 U/L Total Protein 7.7 6.4-8.2 GM/DL Albumin 3.9 3.2-4.5 GM/DL Urine Color YELLOW Urine Clarity SLIGHTLY CLOUDY Urine pH 5 5-9 Urine Specific [place] 1.015 L 1.016-1.022 Urine Protein 1+ H NEGATIVE Urine Glucose (UA) NEGATIVE NEGATIVE Urine Ketones NEGATIVE NEGATIVE Urine Nitrite NEGATIVE NEGATIVE Urine Bilirubin NEGATIVE NEGATIVE Urine Urobilinogen NORMAL NORMAL MG/DL Urine Leukocyte Esterase 1+ H NEGATIVE Urine RBC (Auto) NEGATIVE NEGATIVE Urine RBC NONE /HPF Urine WBC 5-10 H /HPF Urine Crystals NONE /LPF Urine Bacteria MODERATE H /HPF Urine Casts NONE /LPF Urine Mucus SMALL H /LPF Urine Culture Indicated YES My Orders Orders - MAK CHAVARRIA Cbc With Automated Diff (04/10/19 13:19) Comprehensive Metabolic Panel (04/10/19 13:19) Ua Culture If Indicated (04/10/19 13:19) Ed Iv/Invasive Line Start (04/10/19 13:19) Ns Iv 1000 Ml (Sodium Chloride 0.9%) (04/10/19 13:19) Prochlorperazine Injection (Compazine In (04/10/19 13:45) Chest Pa/Lat (2 View) (04/10/19 13:38) Ed Iv/Invasive Line Start (04/10/19 14:16) Ns Iv 1000 Ml (Sodium Chloride 0.9%) (04/10/19 14:16) Urine Culture (04/10/19 13:46) Protime With Inr (04/10/19 14:53) Partial Thromboplastin Time (04/10/19 14:53) Medications Given in ED Current Medications Medications Dose Ordered Sig/Roberth Route Start Time Stop Time Status Last Admin Dose Admin Prochlorperazine Edisylate 10 mg ONCE ONCE IV 04/10/19 13:45 04/10/19 13:46 DC 04/10/19 13:55 10 MG Vital Signs/I&O 04/10/19 13:03 Temp 36.7 Pulse 81 Resp 16 B/P (MAP) 127/76 (93) Pulse Ox 91 O2 Delivery Room Air Blood Pressure Mean: 93 Progress Progress Note : Time: 13:20 Progress Note Patient seen and evaluated, will obtain labs, chest x-ray, IV fluid normal saline 1 L, Compazine 10 mg IV. 1400 patient reports improvement in her nausea after getting the Compazine. 1430 UTI noted on UA. We'll give second liter of normal saline creatinine 4.15. Spoke with the patient and her family of bowel lab results. [address] Jung, agreed with the plan for admission. 1530 admission orders completed, no further nausea or vomiting. Patient has remained stable. Diagnostic Imaging Diagonstic Imaging: Xray Plain Films/CT/US/NM/MRI: chest Comments NAME: YOLETTE PISANO [facility] REC#: [id number] PT STATUS: REG ER : 1955 PHYSICIAN: MAK CHAVARRIA ADMIT DATE: 04/10/19/ER Signed Date of Exam: 04/10/19 CHEST PA/LAT (2 VIEW) INDICATION: Vomiting for two weeks. FINDINGS: Two views of the chest show normal heart size and vascularity. There is left basilar discoid atelectasis. No infiltrates or effusions are seen. Port-A-Cath is present. There are changes of prior median sternotomy. IMPRESSION: Left basilar atelectasis. There has been improved aeration of the lungs since prior study, otherwise, there is no significant change from 12/28/2018. Dictated by: Dictated on workstation # [id number] Dict: 04/10/19 1351 Trans: 04/10/19 1355 Interpreted by: GISELA ENG MD Electronically signed by: GISELA ENG MD 04/10/19 1355 Departure Impression Primary Impression: Urinary tract infection Qualified Codes: N30.01 - Acute cystitis with hematuria Additional Impressions: Nausea and vomiting Qualified Codes: R11.2 - Nausea with vomiting, unspecified CKD (chronic kidney disease) Qualified Codes: N18.9 - Chronic kidney disease, unspecified Chronic anemia GAVE (gastric antral vascular ectasia) Disposition: ADMITTED INPATIENT Condition: Stable Admissions Decision to Admit Reason: Admit from ER (General) Decision to Admit/Date: Apr 10, 2019 Time/Decision to Admit Time: 15:30 Departure-Patient Inst. Referrals: JAMES TORRES MD (PCP/Family) Primary Care Physician MAK CHAVARRIA Apr 10, 2019 13:38
[2019-04-10] MEDS ORDERED: PROCHLORPERAZINE 10 MG/2ML INJ (COMPAZINE) IV ONE (13:45)
[2019-04-10 13:47] LABS: BASOPHILS % (AUTO) 1 % (0-10); EOSINOPHILS # (AUTO) 0.5 10^3/uL (0.0-0.3); EOSINOPHILS % (AUTO) 6 % (0-10); HEMATOCRIT 29 % (35-52); HEMOGLOBIN 9.6 G/DL (11.5-16.0); LYMPHOCYTES # (AUTO) 1.1 X 10^3 (1.0-4.0); LYMPHOCYTES % (AUTO) 13 % (12-44); MEAN CORPUSCULAR HEMOGLOBIN 31 PG (25-34); MEAN CORPUSCULAR HGB CONC 33 G/DL (32-36); MEAN CORPUSCULAR VOLUME 95 FL (80-99); MEAN PLATELET VOLUME 10.1 FL (7.4-10.4); MONOCYTES # (AUTO) 0.7 X 10^3 (0.0-1.0); MONOCYTES % (AUTO) 9 % (0-12); NEUTROPHILS # (AUTO) 5.7 X 10^3 (1.8-7.8); NEUTROPHILS % (AUTO) 72 % (42-75); PLATELET COUNT 228 10^3/uL (130-400); RED CELL DISTRIBUTION WIDTH 14.8 % (10.0-14.5); WHITE BLOOD COUNT 7.9 10^3/uL (4.3-11.0)
--- NOTE | 2019-04-10 13:54 | Diagnostic Imaging Report ---
INDICATION: Vomiting for two weeks. FINDINGS: Two views of the chest show normal heart size and vascularity. There is left basilar discoid atelectasis. No infiltrates or effusions are seen. Port-A-Cath is present. There are changes of prior median sternotomy. IMPRESSION: Left basilar atelectasis. There has been improved aeration of the lungs since prior study, otherwise, there is no significant change from 12/28/2018. Dictated by: Dictated on workstation # [id number]
--- NOTE | 2019-04-10 13:56 | NUR ---
pt in ED bed, pt shows no s/s of distress, pt has not had any episodes of vomiting since arrival, pt denies any needs at this time, vs assessed and stable, will continue to monitor
[2019-04-10 14:00] LABS: ALBUMIN 3.9 GM/DL (3.2-4.5); BILIRUBIN,TOTAL 0.7 MG/DL (0.1-1.0); CALCIUM 9.5 MG/DL (8.5-10.1); CREATININE SERUM 4.15 MG/DL (0.60-1.30); POTASSIUM 4.5 MMOL/L (3.6-5.0); TOTAL PROTEIN 7.7 GM/DL (6.4-8.2)
[2019-04-10 14:18] LABS: BILIRUBIN,URINE NEGATIVE (NEGATIVE); CLARITY,URINE SLIGHTLY CLOUDY; COLOR,URINE YELLOW; GLUCOSE, URINE (UA) NEGATIVE (NEGATIVE); KETONES,URINE NEGATIVE (NEGATIVE); LEUKOCYTE ESTERASE ,URINE 1+ (NEGATIVE); NITRITE,URINE NEGATIVE (NEGATIVE); PH,URINE 5 (5-9); PROTEIN,URINE 1+ (NEGATIVE)
[2019-04-10 14:31] LABS: BACTERIA,URINE MODERATE /HPF
[2019-04-10 15:14] LABS: PROTHROMBIN TIME PATIENT 13.7 SEC (12.2-14.7)
[2019-04-10] MEDS: NS IV 1000 ML 1,000 ML IV SCH ×2 (15:27→17:54)
[2019-04-10 16:53] VITALS: BP 111/42
--- NOTE | 2019-04-10 16:53 | NUR ---
AMEENA PISANO admitted to room 423-1, with an admitting diagnosis of N/V CKI, DEHYDRATION, on 04/10/19 from ER via W/C, accompanied by STAFF.YOLETTE PISANO introduced to surroundings, call light, bed controls, phone, TV, temperature control, lights, meal times, smoking policy, visitor policy, side rail policy, bathrooms and showers. Patient Rights given to patient in the handbook.YOLETTE PISANO verbalizes understanding that [facility] is not responsible for the loss or damage to any personal effects or valuables that are kept in the patients posession during their hospitalization. The following Patient Care Plans were discussed with the PT: Discharge Planning, PAIN CONTROL,IV THERAPY, and TESTS AND PROCEDURES. YOLETTE PISANO verbalizes understanding of Interdisciplinary Patient Education. Patient and/or family were informed about the Rapid Response Team and its purpose.
[2019-04-10] MEDS ORDERED: PROCHLORPERAZINE 10 MG/2ML INJ (COMPAZINE) IV PRN (17:30)
[2019-04-10] MEDS ORDERED: ACETAMINOPHEN 325 MG TABLET PO PRN (17:30)
[2019-04-10] MEDS ORDERED: LEVOFLOXACIN 250 MG/50 ML IVPB 50 ML ONE (17:43)
[2019-04-10] MEDS: LEVOFLOXACIN 250 MG/50 ML IVPB 50 ML IV SCH (17:54)
[2019-04-10 19:30] VITALS: BP 135/64
[2019-04-10 20:08] LABS: AMYLASE 65 U/L (25-125); LIPASE 57 U/L (8-78)
--- NOTE | 2019-04-10 20:30 | NUR ---
THIS NURSE RAWHIDE BONE ROLLER CONTACTED DR TY NOBLES PT'S 1999 CREATNINE LEVEL WHICH HAD COME DOWN TO 3.35, PREVIOUSLY IT WAS 4.16. NO NEW ORDERS.
--- NOTE | 2019-04-10 21:14 | NUR ---
PT'S HS ACCUCHECK READ 278. DR CRAWFORD NOTIFIED, HE ORDERED S/S B AC HS.
[2019-04-10] MEDS ORDERED: inSUlin ASPART (NovoLOG) 1 UNIT/0.01 ML (CHARGE PER UNIT) SC SCH (21:30)
[2019-04-10] MEDS ORDERED: inSUlin ASPART (NovoLOG) 1 UNIT/0.01 ML (CHARGE PER UNIT) ONE (21:37)
[2019-04-11] VITALS (8 sets, daily range): BP systolic 135–170; BP diastolic 56–99
[2019-04-11] MEDS: NS IV 1000 ML 1,000 ML IV SCH ×3 (01:00→08:13)
[2019-04-11 05:54] LABS: BASOPHILS % (AUTO) 0 % (0-10); EOSINOPHILS # (AUTO) 0.3 10^3/uL (0.0-0.3); EOSINOPHILS % (AUTO) 6 % (0-10); HEMATOCRIT 23 % (35-52); HEMOGLOBIN 7.4 G/DL (11.5-16.0); LYMPHOCYTES # (AUTO) 1.5 X 10^3 (1.0-4.0); LYMPHOCYTES % (AUTO) 33 % (12-44); MEAN CORPUSCULAR HEMOGLOBIN 31 PG (25-34); MEAN CORPUSCULAR HGB CONC 32 G/DL (32-36); MEAN CORPUSCULAR VOLUME 96 FL (80-99); MEAN PLATELET VOLUME 10.1 FL (7.4-10.4); MONOCYTES # (AUTO) 0.5 X 10^3 (0.0-1.0); MONOCYTES % (AUTO) 12 % (0-12); NEUTROPHILS # (AUTO) 2.2 X 10^3 (1.8-7.8); NEUTROPHILS % (AUTO) 50 % (42-75); PLATELET COUNT 142 10^3/uL (130-400); RED CELL DISTRIBUTION WIDTH 14.9 % (10.0-14.5); WHITE BLOOD COUNT 4.5 10^3/uL (4.3-11.0)
[2019-04-11] MEDS: inSUlin ASPART (NovoLOG) 1 UNIT/0.01 ML (CHARGE PER UNIT) SC SCH ×4 (06:00→21:21)
[2019-04-11 06:14] LABS: ALBUMIN 3.1 GM/DL (3.2-4.5); BILIRUBIN,TOTAL 0.5 MG/DL (0.1-1.0); CALCIUM 8.2 MG/DL (8.5-10.1); CREATININE SERUM 2.57 MG/DL (0.60-1.30); POTASSIUM 3.9 MMOL/L (3.6-5.0)
[2019-04-11] MEDS: LEVOFLOXACIN 250 MG/50 ML IVPB 50 ML IV SCH (08:50)
[2019-04-11] MEDS ORDERED: INSU100I14 SQ (10:36)
[2019-04-11] MEDS ORDERED: PROM25TA14 PO (10:36)
[2019-04-11] MEDS ORDERED: LACT10SO PO (10:36)
--- NOTE | 2019-04-11 10:42 | NUR ---
SPOKE WITH PT WELL CALLING [facility] TO COMPLETE THE MED REC. METOPROLOL TART 25MG: THE DIRECTIONS ON THE BOTTLE SAY "1/2 TAB BID " HOWEVER THE PT IS TAKING 1/2 TAB ONCE DAILY. LEVOTHYROXINE 17MCG: THE DIRECTIONS AT [facility] SAY " 1 TAB DAILY", BUT THE PT IS TAKING 1 TAB EVERY OTHER DAY- SHE USED TO ALTERNATE THIS WITH DIGOXIN, BUT SHE NO LONGER TAKES DIGOXIN. ALL OTHER MEDICATIONS SHE WAS ABLE TO TELL ME HOW/WHEN SHE TAKES. THE FOLLOWING ARE FILL DATES ACCORDING TO [facility]: 08-06-2018 TIZANIDINE #90 09-08-2018 LEVOTHYROXINE #90/90DS 12-14-2018 ONDANSETRON #90 12-24-2018 MAGNESIUM #180/90DS 01-26-2019 TRAMADOL #64 02-09-2019 BUMETANIDE #180/90DS 02-10-2019 OMEPRAZOLE #180/90DS 03-08-2019 METOPROLOL #60/60DS 03-10-2019 LACTULOSE #1892 ML/47DS 03-28-2019 NOVOLIN 04-07-2019 PROMETHAZINE #30 OTC MEDS: APAP 325 ZYRTEC BENADRYL FOLIC ACID Addendum: 04/12/19 at 0829 by NITHIN KRUSE CPhT 01-27-2019 NOVOLOG: SHE WAS GIVEN SAMPLES FROM [facility] BUT THE NURSE INDICATED WHOEVER DISPENSED THEM DID NOT DOCUMENT HOW MANY SHE WAS GIVEN
--- NOTE | 2019-04-11 14:50 | History & Physical ---
HPI History of Present Illness: 63 yo F with multiple comorbidities that presented with increasing nausea and vomiting for 3 days prior to admission. States that she was unable to eat and keep any food down. She denies any sick contacts. She has a h/o transfusion dependent anemia and GAVE disease that has seem to be stable recently. She was recently dx with cirrhosis of her liver at this year and follows with hepatology. States that she has been dealing with her blood sugars for the last 2-3 weeks and that they have been running in the 300-500s range but this past week have been in the 200s. Source: patient Exam Limitations: no limitations Date seen by provider: Apr 11, 2019 Time Seen by Provider: 10:35 Attending Physician James Wilson MD PCP James Wilson MD Consult Date of Admission Apr 10, 2019 at 16:30 Home Medications Home Medications Reviewed patient Home Medication Reconciliation performed by pharmacy medication reconciliations instructional media services technician and/or nursing. Patients Allergies have been reviewed. Allergies Coded Allergies: Yknsiac-Amc-Vta Reductase Inhibitor (Verified Allergy, Intermediate, GI UPSET, N/V, 11/06/17) cefadroxil (Unverified Allergy, Mild, 01/01/17) Sulfa (Sulfonamide Antibiotics) (Verified Allergy, Unknown, 06/18/18) CSF-Ettjri-Scezrj Hx Patient Social History Living Status: Lives at home with Alcohol Use: Denies Use Recreational Drug Use: No Smoking Status: Former Smoker Type Used: Cigarettes Recent Foreign Travel: No Contact w/other who traveled: No Recent Hopitalizations: No Recent Infectious Disease Expo: No Immunizations Up To Date Tetanus Booster (TDap): Unknown Date of Pneumonia Vaccine: Jan 27, 2018 Date of Influenza Vaccine: Mar 17, 2018 Past Medical History PMHx: Paroxysmal Atrial fibrillation Gastric antral vascular ectasia (GAVE) CAD IDDM Chronic Microcytic anemia, transfusion dependent HTN HLD CHF CKD [place] (Nstemi x3) s/p CABG Hypothyroidism Anxiety Disorder Family Medical History Significant Family History: Hypertension, Stroke, Other Conditions/Hx Family History: Arthritis G8 BROTHER Completed stroke 19 MOTHER FH: anemia 19 MOTHER FH: lupus G8 SISTER FH: throat cancer 19 FATHER Hypertension G8 SISTER Myocardial infarction 19 MOTHER Thyroid disease 19 MOTHER G8 SISTER Review of Systems (CHC) Constitutional: No chills, No fever; malaise, weakness EENTM: no symptoms reported; No mouth pain, No nose congestion, No nose pain, No throat swelling Respiratory: no symptoms reported; No cough, No dyspnea on exertion, No short of breath Cardiovascular: no symptoms reported; No chest pain, No edema, No palpitations Gastrointestinal: abdominal pain, loss of appetite, nausea; No vomiting Genitourinary: No dysuria; frequency; No hematuria : No Musculoskeletal: back pain Skin: no symptoms reported Psychiatric/Neurological: Anxiety, Other (Insomnia) Reviewed Test Results Reviewed Test Results Lab Laboratory Tests Test 04/10/19 17:21 04/10/19 19:45 04/10/19 20:56 04/11/19 05:30 Range/Units Glucometer 249 H 278 H 70-110 MG/DL Creatinine 3.35 #H 2.57 #H 0.60-1.30 MG/DL Amylase Level 65 25-125 U/L Lipase 57 8-78 U/L White Blood Count 4.5 4.3-11.0 10^3/uL Red Blood Count 2.41 L 4.35-5.85 10^6/uL Hemoglobin 7.4 #L 11.5-16.0 G/DL Hematocrit 23 L 35-52 % Mean Corpuscular Volume 96 80-99 FL Mean Corpuscular Hemoglobin 31 25-34 PG Mean Corpuscular Hemoglobin Concent 32 32-36 G/DL Red Cell Distribution Width 14.9 H 10.0-14.5 % Platelet Count 142 130-400 10^3/uL Mean Platelet Volume 10.1 7.4-10.4 FL Neutrophils (%) (Auto) 50 42-75 % Lymphocytes (%) (Auto) 33 12-44 % Monocytes (%) (Auto) 12 0-12 % Eosinophils (%) (Auto) 6 0-10 % Basophils (%) (Auto) 0 0-10 % Neutrophils # (Auto) 2.2 1.8-7.8 X 10^3 Lymphocytes # (Auto) 1.5 1.0-4.0 X 10^3 Monocytes # (Auto) 0.5 0.0-1.0 X 10^3 Eosinophils # (Auto) 0.3 0.0-0.3 10^3/uL Basophils # (Auto) 0.0 0.0-0.1 10^3/uL Sodium Level 141 135-145 MMOL/L Potassium Level 3.9 3.6-5.0 MMOL/L Chloride Level 111 H 98-107 MMOL/L Carbon Dioxide Level 20 L 21-32 MMOL/L Anion Gap 10 5-14 MMOL/L Blood Urea Nitrogen 41 H 7-18 MG/DL Estimat Glomerular Filtration Rate 19 BUN/Creatinine Ratio 16 Glucose Level 150 H 70-105 MG/DL Calcium Level 8.2 L 8.5-10.1 MG/DL Corrected Calcium 8.9 8.5-10.1 MG/DL Total Bilirubin 0.5 0.1-1.0 MG/DL Aspartate Amino Transf (AST/SGOT) 14 5-34 U/L Alanine Aminotransferase (ALT/SGPT) 8 0-55 U/L Alkaline Phosphatase 58 40-136 U/L Total Protein 6.0 L 6.4-8.2 GM/DL Albumin 3.1 L 3.2-4.5 GM/DL Test 04/11/19 11:18 Range/Units Glucometer 321 H 70-110 MG/DL Physical Exam-(CHC) Physical Exam Vital Signs VS - Last 72 Hours, by Label POS 04/10/19 04/10/19 04/10/19 04/10/19 13:03 16:53 16:53 18:07 Temp 36.7 36.5 36.5 Pulse 81 60 60 75 Resp 16 18 18 B/P (MAP) 127/76 (93) 111/42 (65) 111/42 Pulse Ox 91 98 98 O2 Delivery Room Air Room Air Room Air 04/10/19 04/10/19 04/10/19 04/11/19 19:30 19:35 20:00 00:00 Temp 36.7 37.0 Pulse 61 64 Resp 18 16 B/P (MAP) 135/64 (87) 135/63 (87) Pulse Ox 98 94 O2 Delivery Room Air Room Air Room Air Room Air 04/11/19 04/11/19 04/11/19 04/11/19 01:06 04:00 07:00 08:00 Temp 37.2 36.3 Pulse 69 66 71 74 Resp 16 18 B/P (MAP) 139/62 (87) 139/66 (90) Pulse Ox 95 98 O2 Delivery Room Air Room Air 04/11/19 04/11/19 04/11/19 08:00 12:10 12:15 Temp 37.0 Pulse 76 72 Resp 18 B/P (MAP) 170/71 (104) Pulse Ox 96 O2 Delivery Room Air Room Air Capillary Refill : Less Than 3 Seconds General Appearance: no apparent distress, obese Neck: non-tender, supple Respiratory: chest non-tender, lungs clear, normal breath sounds, no respiratory distress Cardiovascular: normal peripheral pulses, regular rate, rhythm, other (systolic murmur present) Gastrointestinal: normal bowel sounds, soft, tenderness (mild epigastric ttp) Back: no CVA tenderness, no vertebral tenderness Extremities: normal range of motion, no calf tenderness, normal capillary refill, pedal edema (2+ pitting edema bilaterally) 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, no motor/sensory deficits, alert, normal mood/affect Skin: warm/dry, other (pale) Lymphatic: no adenopathy Assessment/Plan Assessment/Plan Admission Status: Observation (1) UTI (urinary tract infection) Status: Acute Assessment & Plan: - Day 2/5 antibiotics, d/c IVFs today and encourage PO hydration Qualifiers: Qualified Codes: N30.01 - Acute cystitis with hematuria (2) Acute kidney injury superimposed on chronic kidney disease Status: Acute Assessment & Plan: - Improving, Encourage PO hydration, patient getting close to baseline (3) Nausea and vomiting Status: Acute Assessment & Plan: - Improved, zofran PRN Qualifiers: Qualified Codes: R11.2 - Nausea with vomiting, unspecified (4) Cirrhosis Qualifiers: Qualified Codes: K74.60 - Unspecified cirrhosis of liver (5) Atrial fibrillation Status: Chronic Assessment & Plan: - Rate controlled, CI for anticoagulation due to chronic GI bleeding leading to transfusion dependent anemia Qualifiers: Qualified Codes: I48.0 - Paroxysmal atrial fibrillation (6) Insulin dependent diabetes mellitus Status: Chronic (7) Coronary artery disease Status: Chronic Qualifiers: Qualified Codes: I25.118 - Atherosclerotic heart disease of [place] coronary artery with other forms of angina pectoris (8) Hypertension Status: Chronic Assessment & Plan: - Restart home meds Qualifiers: Qualified Codes: I10 - Essential (primary) hypertension (9) Hypothyroidism Status: Chronic Qualifiers: Qualified Codes: E03.9 - Hypothyroidism, unspecified (10) 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 (11) DVT prophylaxis Status: Acute Assessment & Plan: SCDs (12) Oxygen dependent Status: Chronic (13) Contraindication to anticoagulation therapy Status: Chronic Clinical Quality Measures DVT/VTE Risk/Contraindication: Risk Factor Score Per Nursin RFS Level Per Nursing on Admit: 4+=Very High Copy Copies To 1: JAMES WILSON MD, HOLLY R MD Apr 11, 2019 14:50 POS
[2019-04-11] MEDS ORDERED: LACTULOSE SYRUP 10GM/15ML (ENULOSE) 30ML UDC PO PRN (15:00)
--- NOTE | 2019-04-11 15:02 | NUR ---
RD ASSESSMENT PMHx: chronic anemia; afib; CAD; edema; VT; hypercholesterolemia; HTN; GERD; DM PT INTERACTION: Pt was awake and pleasant during consult for MST score. Pt states current appetite is pretty good, though it was poor for the last two weeks. Pt states frequent episodes of nausea and vomiting during that time. Pt states following a ADA (diabetic) diet at home. Pt states current DM management is pretty good, and that her blood glucose levels are generally between "150-200." Note blood glucose level of 150 (H). Pt states no current issues with constipation or diarrhea at this time. Pt states recent "40-50#" wt loss x6mon. Note 14# wt loss x4mon, per chart review. ABNORMAL NUTRITION-RELATED LAB VALUES: Cl 111 (H); BUN 41 (H); cr 2.57 (H); glu 150 (H); Ca 8.2 (L); Pro 6.0 (L); alb 3.1 (L) Est. kcal needs: 4296-1078 kcal (20-25 kcal/kg) Est. Pro needs: 66-82 g Pro (0.8-1.0 g Pro/kg) PES STATEMENT: Inadequate oral intake (NI-2.1) related to nausea | vomiting as evidenced by pt interview INTERVENTION: Continue with current diet order of Ulcer/Peptic [place] diet. Add Glucerna (saundra) to meals BID. Provides 220 kcal and 10 g Pro per serving. Encouraged pt to eat when able. MONITOR/EVALUATE: PO Intake; Supplement Tolerance; Plan of Care; Hydration Status; Weight Status; Lab Values Tomy You, MS, RD, LD Ext. 133
[2019-04-11] MEDS ORDERED: NON-FORMULARY MEDICATION 1 EA EA (Bumetanide 1 MG) PO SCH (15:45)
[2019-04-11] MEDS ORDERED: BUMETANIDE 1 MG (BUMEX) TAB PO PRN (16:15)
[2019-04-11] MEDS ORDERED: NS IV 500 ML 500 ML IV SCH (18:00)
--- NOTE | 2019-04-11 20:19 | CONSULTATION REPORT ---
DATE OF SERVICE: 04/11/2019 The patient is admitted to room 423. REFERRING AND PRIMARY PHYSICIAN: Carla Wilson MD IMPRESSION: 1. A 63-year-old female admitted with nausea, vomiting and dehydration of several days duration. 2. Probable urinary tract infection causing above symptoms. 3. 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 4. Acute on chronic kidney disease, probably related to dehydration. 5. Diabetes mellitus with poor control. RECOMMENDATIONS: 1. Continue management of probable UTI as you are doing and await urine culture and sensitivity. 2. Agree with hydration and monitor renal function closely. 3. Optimize antidiabetic treatment. 4. Hemoglobin has dropped today when compared to admission, probably related to hydration. Monitor this closely and if this is dropping, she will need packed red blood cell transfusion. Try to maintain hemoglobin 8 gram per deciliter or above based on her cardiac problems and age. 5. History of paroxysmal atrial fibrillation, but not on anticoagulation because of significant GI bleeding. 6. Overall, prognosis guarded. 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 She has required a transfusion numerous times over the past two years. She has poorly controlled diabetes mellitus and is somewhat noncompliant with her medications. She came to the emergency room because of intractable nausea and vomiting for several days' duration, was found to have acute on chronic renal failure, dehydration and probable UTI. Hematology consultation was obtained for concurrent medical care. PAST MEDICAL HISTORY: Significant for iron deficiency anemia, which was initially diagnosed as gastric antral vascular ectasia syndrome. Further workup also showed evidence of cirrhosis with portal hypertension and intermittent GI bleeding. The patient has required numerous packed red blood cell transfusions and parenteral iron therapy in the past. Current transfusion goal is to maintain hemoglobin close to her above 8 grams per deciliter because of cardiac history and age. She has diabetes mellitus type 2 diagnosed more than 10 years ago, but is in the poor control. The patient does have some medication compliance issues which interferes with treatments. Long-standing history of hypothyroidism and is on replacement. She was diagnosed with coronary artery disease and IN requiring a stent placement. She has atrial fibrillation diagnosed a few years ago and was started on anticoagulation. She could not tolerate this because of significant bleeding and all anticoagulation including aspirin therapy was discontinued. Also has history of hypercholesterolemia and osteoarthritis. PAST SURGICAL HISTORY: Include a left ankle reconstruction in 1976. Left knee arthroscopic surgery in the past. Several EGDs, tubal ligation, bilateral reduction mammoplasty, cardiac catheterization with stent placement approximately 8 years ago and CABG in 2018. SOCIAL HISTORY: The patient is and lives in [place], [place]. She has two children, a son who lives in [place] and a daughter who lives close by. 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 She has [id number] history of tobacco use, but quit more than 30 years ago. Previously, she has used alcohol socially, but has not used alcohol for several years. No history of recreational drug use. FAMILY HISTORY: Significant for her father with throat cancer at the age of 59 years. Paternal grandfather with a history of colon cancer. Paternal grandmother with colon cancer diagnosed in her late 50s. The patient's sister with breast cancer at the age of 40 years. Her brother had skin cancers. Maternal uncle with lung cancer and maternal aunt with an unknown malignancy in her 50s. No other medical problems in the family that the patient knows of. PHYSICAL EXAMINATION: GENERAL: showed elderly female, obese, awake and oriented, in no acute distress. VITAL SIGNS: Her temperature was 37.4 degrees Celsius, pulse rate of 76, respirations 16, blood pressure 135/56 with oxygen saturation 97% on room air. HEENT: Normocephalic, extraocular muscles intact, conjunctivae slightly pale, oral mucosa moist. NECK: Supple, with no JVD. No cervical, supraclavicular or axillary lymphadenopathy palpable. CHEST: Symmetrical. LUNGS: Fairly clear to auscultation without wheezes or rales. CARDIOVASCULAR: Regular in rate and rhythm. No murmurs or gallops heard. ABDOMEN: Obese, soft, nontender with no hepatosplenomegaly or other masses palpable. EXTREMITIES: Showed 1+ edema around the ankles. NEUROLOGIC: Showed no focal motor deficits. Overall, motor strength was 4/5 bilaterally. LABORATORY DATA: CBC done earlier today showed WBC 4.5, hemoglobin 7.4, platelet count 142,000 with neutrophil count 2.2 and lymphocyte count 1.5. Yesterday, at the time of admission, the hemoglobin was 9.6. Chemistry panel showed normal electrolytes. BUN was 41 and creatinine 2.54 with GFR of 19 mL per minute. Nonfasting glucose was 150. Liver function studies were normal except albumin level of 3.1. Urinalysis showed 1+ leukocyte esterase, 5 to 10 wbc's per high power field and moderate bacteria. Cultures are pending. Thank you for allowing me to participate in this patient's care. I will follow the patient with you and make appropriate recommendations. Job ID: [id number] DocumentID: [id number] Dictated Date: 04/11/2019 17:16:30 Car Top Bolter Date: 04/11/2019 20:18:57 Dictated By: SHIREEN AGARWAL MD
[2019-04-11] MEDS: meTOprolol TARTRATE 25 MG (LOPRESSOR) TABLET PO SCH (21:00)
[2019-04-11] MEDS: PANTOPRAZOLE 40 MG (PROTONIX) TAB PO SCH (21:00)
[2019-04-12 00:01] VITALS: BP 131/65
[2019-04-12 01:01] VITALS: BP 131/65
[2019-04-12 05:26] LABS: BASOPHILS % (AUTO) 0 % (0-10); EOSINOPHILS # (AUTO) 0.2 10^3/uL (0.0-0.3); EOSINOPHILS % (AUTO) 5 % (0-10); HEMATOCRIT 24 % (35-52); HEMOGLOBIN 8.2 G/DL (11.5-16.0); LYMPHOCYTES # (AUTO) 1.2 X 10^3 (1.0-4.0); LYMPHOCYTES % (AUTO) 35 % (12-44); MEAN CORPUSCULAR HEMOGLOBIN 32 PG (25-34); MEAN CORPUSCULAR HGB CONC 34 G/DL (32-36); MEAN CORPUSCULAR VOLUME 93 FL (80-99); MEAN PLATELET VOLUME 10.4 FL (7.4-10.4); MONOCYTES # (AUTO) 0.4 X 10^3 (0.0-1.0); MONOCYTES % (AUTO) 11 % (0-12); NEUTROPHILS # (AUTO) 1.6 X 10^3 (1.8-7.8); NEUTROPHILS % (AUTO) 49 % (42-75); PLATELET COUNT 96 10^3/uL (130-400); RED CELL DISTRIBUTION WIDTH 14.2 % (10.0-14.5); WHITE BLOOD COUNT 3.4 10^3/uL (4.3-11.0)
[2019-04-12 05:52] LABS: ALBUMIN 3.3 GM/DL (3.2-4.5); BILIRUBIN,TOTAL 0.7 MG/DL (0.1-1.0); CALCIUM 8.8 MG/DL (8.5-10.1); CREATININE SERUM 1.98 MG/DL (0.60-1.30); TOTAL PROTEIN 6.1 GM/DL (6.4-8.2)
[2019-04-12] MEDS: inSUlin ASPART (NovoLOG) 1 UNIT/0.01 ML (CHARGE PER UNIT) SC SCH (06:05)
[2019-04-12] MEDS ORDERED: LEVOTHYROXINE 100 MCG (LEVOTHROID) TAB PO SCH (06:30)
[2019-04-12] MEDS ORDERED: LEVOTHYROXINE 75 MCG (LEVOTHROID) TABLET PO SCH (06:30)
[2019-04-12 08:00] VITALS: BP 156/65
[2019-04-12] MEDS: meTOprolol TARTRATE 25 MG (LOPRESSOR) TABLET PO SCH (08:21)
[2019-04-12] MEDS: PANTOPRAZOLE 40 MG (PROTONIX) TAB PO SCH (08:21)
[2019-04-12] MEDS: LEVOFLOXACIN 250 MG/50 ML IVPB 50 ML IV SCH (08:22)
[2019-04-12] MEDS ORDERED: BUMETANIDE 1 MG (BUMEX) TAB PO SCH (09:00)
[2019-04-12] MEDS ORDERED: LORATADINE (CLARITIN) 10 MG TAB PO SCH (09:00)
[2019-04-12] MEDS ORDERED: inSUlin NPH (NovoLIN N) 1 UNIT/0.01 ML (CHARGE PER UNIT) SQ SCH (09:00)
--- NOTE | 2019-04-12 10:10 | NUR ---
Pt wants to be discharged today to home. She and her husbnad assist each other as both have chronic illness. Wants to review Medicare Drug Plans and will follow in out-pt.
--- NOTE | 2019-04-12 11:17 | Discharge Summary ---
Diagnosis/Chief Complaint Date of Admission Apr 10, 2019 at 16:30 Date of Discharge Discharge Diagnosis Problems/Diagnosis: (1) UTI (urinary tract infection) Assessment & Plan: - Day 2/5 antibiotics, d/c IVFs today and encourage PO hydration Qualifiers: Qualified Codes: N30.01 - Acute cystitis with hematuria Status: Acute (2) Acute kidney injury superimposed on chronic kidney disease Assessment & Plan: - Improving, Encourage PO hydration, patient getting close to baseline Status: Acute (3) Nausea and vomiting Assessment & Plan: - Improved, zofran PRN Qualifiers: Qualified Codes: R11.2 - Nausea with vomiting, unspecified Status: Acute (4) Cirrhosis Qualifiers: Qualified Codes: K74.60 - Unspecified cirrhosis of liver (5) Atrial fibrillation Assessment & Plan: - Rate controlled, CI for anticoagulation due to chronic GI bleeding leading to transfusion dependent anemia Qualifiers: Qualified Codes: I48.0 - Paroxysmal atrial fibrillation Status: Chronic (6) Insulin dependent diabetes mellitus Status: Chronic (7) Coronary artery disease Qualifiers: Qualified Codes: I25.118 - Atherosclerotic heart disease of [place] coronary artery with other forms of angina pectoris Status: Chronic (8) Hypertension Assessment & Plan: - Restart home meds Qualifiers: Qualified Codes: I10 - Essential (primary) hypertension Status: Chronic (9) Hypothyroidism Qualifiers: Qualified Codes: E03.9 - Hypothyroidism, unspecified Status: Chronic (10) 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 (11) DVT prophylaxis Assessment & Plan: SCDs Status: Acute (12) Oxygen dependent Status: Chronic (13) Contraindication to anticoagulation therapy Status: Chronic Chief Complaint/HPI Chief Complaint/HPI 63 yo F with multiple comorbidities that presented with increasing nausea and vomiting for 3 days prior to admission. States that she was unable to eat and keep any food down. She denies any sick contacts. She has a h/o transfusion dependent anemia and GAVE disease that has seem to be stable recently. She was recently dx with cirrhosis of her liver at this year and follows with hepatology. States that she has been dealing with her blood sugars for the last 2-3 weeks and that they have been running in the 300-500s range but this past week have been in the 200s. Discharge Summary-Simple/Stand Consultations Discharge Physical Examination Allergies: Coded Allergies: Jdrxpcf-Txq-Tnl Reductase Inhibitor (Verified Allergy, Intermediate, GI UPSET, N/V, 11/06/17) cefadroxil (Unverified Allergy, Mild, 01/01/17) Sulfa (Sulfonamide Antibiotics) (Verified Allergy, Unknown, 06/18/18) Vitals & I&Os Vital Sign - Last 12Hours Date Time Temp Pulse Resp B/P (MAP) Pulse Ox O2 Delivery O2 Flow Rate FiO2 04/12/19 08:00 37.3 75 20 156/65 (95) 98 Room Air l Intake and Output 04/12/19 00:00 Intake Total 4040 ml Output Total 1100 ml Balance 2940 ml Hospital Course See final discharge diagnosis. Discharge Instructions to patient/family Please see electronic discharge instructions given to patient. Discharge Medications Reviewed and agree with Discharge Medication list on patient's Discharge Instruction sheet Clinical Quality Measures DVT/VTE Risk/Contraindication: Risk Factor Score Per Nursin RFS Level Per Nursing on Admit: 4+=Very High JAMES TORRES MD Apr 12, 2019 11:17 POS
[2019-04-12] MEDS ORDERED: LEVO750T9 PO (11:20)
--- NOTE | 2019-04-12 11:25 | Discharge Instructions ---
Discharge [facility] Reconcile Patient Problems Problems Reviewed?: Yes Discharge Medications New, Converted or Re-Newed RX: Transmitted to Pharmacy New Medications: Levofloxacin (Levaquin) 750 Mg Tablet 750 MG PO DAILY, #3 TAB Continued Medications: Acetaminophen (Tylenol) 325 Mg Tablet 325 MG PO Q4H PRN for PAIN-MILD, TAB Bumetanide (Bumetanide) 1 Mg Tablet 1 MG PO DAILY PRN, TAB TAKES 1 TAB EVERY DAY AND CAN TAKE ANOTHER TAB IF NEEDED Cetirizine HCl (Zyrtec) 10 Mg Tablet 10 MG PO DAILY, TAB Diphenhydramine HCl (Benadryl) 25 Mg Capsule 25 MG PO Q6H PRN for ALLERGIES, CAP Folic Acid (Folic Acid) 1 Mg Tablet 1 MG PO DAILY, TAB Insulin Aspart (Novolog Flexpen) 300 Units/3 Ml Solution 8 UNITS SQ BID, EA Insulin NPH Human Isophane (Novolin N) 100 Unit/1 Ml Vial 15 UNIT SQ DAILY Lactulose (Lactulose) 10 Gm/15 Ml Solution 20 ML PO BID PRN for CONSTIPATION-3RD LINE, EA Levothyroxine Sodium (Levothyroxine Sodium) 175 Mcg Tablet 175 MCG PO Q48H, TAB LAST FILL 09-08-2018 Magnesium Oxide (Magox 400) 400 Mg Tablet 400 MG PO BID, TAB Metoprolol Tartrate (Metoprolol Tartrate) 25 Mg Tablet 12.5 MG PO BID, TAB Nitroglycerin (Nitrostat) 0.4 Mg Tab.subl 0.4 MG SL UD PRN for CHEST PAIN, TAB Omeprazole (Omeprazole) 40 Mg Capsule.dr 40 MG PO BID, CAP Ondansetron HCl (Zofran) 8 Mg Tablet 8 MG PO Q6H PRN for NAUSEA/VOMITING-1ST LINE, TAB Promethazine HCl (Promethazine Tablet) 25 Mg Tablet 25 MG PO Q8H PRN for NAUSEA/VOMITING-2ND LINE, TAB Tizanidine HCl (Tizanidine HCl) 4 Mg Tablet 2 MG PO TID PRN for MUSCLE SPASMS, TAB Tramadol HCl (Tramadol HCl) 50 Mg Tablet 50 MG PO TID PRN for PAIN-MODERATE, TAB Patient Instructions Goal/Follow Up Appt: You have a hospital f.u with Dr Wilson 04/26 @ 5246 Activity & Diet Discharge Diet: ADA Diet, Cardiac Diet Activity as Tolerated: Yes Copy Copies To 1: JAMES WILSON MD, HOLLY R MD Apr 12, 2019 11:25 POS
[2019-04-12 11:40] VITALS: BP 156/65
== END 2019-04-12 11:40 | disposition home or self-care (01) ==
LOC: EDUNIT# 13:02 → ER 13:03 → 4TH 16:30
PROVIDERS: ADMIT Internal Medicine; ATTEND Family Medicine
DX: N30.01 Acute cystitis with hematuria (principal); E11.22 Type 2 diabetes mellitus with diabetic chronic kidney disease; N18.9 Chronic kidney disease, unspecified; K74.60 Unspecified cirrhosis of liver; K31.819 Angiodysplasia of stomach and duodenum without bleeding; D64.9 Anemia, unspecified; I95.9 Hypotension, unspecified; I48.91 Unspecified atrial fibrillation; J30.9 Allergic rhinitis, unspecified; I25.10 Atherosclerotic heart disease of native coronary artery without angina pectoris; E78.5 Hyperlipidemia, unspecified; I12.9 Hypertensive chronic kidney disease with stage 1 through stage 4 chronic kidney disease, or unspecified chronic kidney disease; K21.9 Gastro-esophageal reflux disease without esophagitis; G89.29 Other chronic pain; M19.90 Unspecified osteoarthritis, unspecified site; M54.9 Dorsalgia, unspecified; F41.9 Anxiety disorder, unspecified; Z88.1 Allergy status to other antibiotic agents; Z88.2 Allergy status to sulfonamides; Z88.8 Allergy status to other drugs, medicaments and biological substances; Z79.4 Long term (current) use of insulin; Z87.891 Personal history of nicotine dependence; Z86.79 Personal history of other diseases of the circulatory system; Z82.49 Family history of ischemic heart disease and other diseases of the circulatory system; Z80.3 Family history of malignant neoplasm of breast
CPT/HCPCS: 36415; 71046; 80053; 81000; 82150; 82565; 82962; 83690; 85025; 85610; 85730; 86850; 86900; 86901; 86902; 86922; 87088; 96374; 99282; G0378

== ENCOUNTER 2019-04-18 14:38 | Outpatient (RCR) | payer MEDICARE ==
[2019-02-21 16:49] LABS: CALCIUM 9.9 MG/DL (8.5-10.1); CREATININE SERUM 2.54 MG/DL (0.60-1.30); MAGNESIUM 2.1 MG/DL (1.6-2.4); POTASSIUM 4.1 MMOL/L (3.6-5.0)
[2019-03-21 14:06] LABS: CALCIUM 8.8 MG/DL (8.5-10.1); CREATININE SERUM 1.72 MG/DL (0.60-1.30); MAGNESIUM 2.4 MG/DL (1.6-2.4)
[2019-03-28 14:31] LABS: CALCIUM 9.3 MG/DL (8.5-10.1); CREATININE SERUM 1.67 MG/DL (0.60-1.30); POTASSIUM 4.4 MMOL/L (3.6-5.0)
[2019-03-28 15:09] LABS: ALBUMIN 3.5 GM/DL (3.2-4.5); BILIRUBIN,TOTAL 0.5 MG/DL (0.1-1.0); MAGNESIUM 1.9 MG/DL (1.6-2.4)
[~2019-04-18 14:38] MED LIST changes: +LACT10SO PO; +LEVO750T9 PO
[2019-04-18 15:40] LABS: CALCIUM 8.4 MG/DL (8.5-10.1); CREATININE SERUM 2.5 MG/DL (0.60-1.30); MAGNESIUM 2.5 MG/DL (1.6-2.4); POTASSIUM 4.8 MMOL/L (3.6-5.0)
== END 2019-04-24 | disposition home or self-care (01) ==
LOC: LAB 14:38
PROVIDERS: ATTEND Internal Medicine Advanced Heart Failure and Transplant Cardiology
DX: D50.0 Iron deficiency anemia secondary to blood loss (chronic) (principal); E53.8 Deficiency of other specified B group vitamins; K31.819 Angiodysplasia of stomach and duodenum without bleeding; K74.60 Unspecified cirrhosis of liver; I25.10 Atherosclerotic heart disease of native coronary artery without angina pectoris; E03.9 Hypothyroidism, unspecified; I12.9 Hypertensive chronic kidney disease with stage 1 through stage 4 chronic kidney disease, or unspecified chronic kidney disease; N18.3 Chronic kidney disease, stage 3 (moderate); E11.22 Type 2 diabetes mellitus with diabetic chronic kidney disease; I48.91 Unspecified atrial fibrillation; Z79.899 Other long term (current) drug therapy
CPT/HCPCS: 36415; 80048; 80053; 83735; 83880

== ENCOUNTER 2019-05-07 16:11 | Emergency (ER) | payer MEDICARE ==
[~2019-05-07] VITALS: Ht 162 cm; Wt 90.0 kg
--- NOTE | 2019-05-07 16:37 | ED General ---
General Stated Complaint: CONFUSION, FREQUENT URINATION Source of Information: Patient Exam Limitations: No Limitations History of Present Illness Date Seen by Provider: May 07, 2019 Time Seen by Provider: 16:36 Initial Comments To ER with reports of an episode of confusion today, she had urge to urinate and went and sat on the toilet for 3 hours with her underwear on, then urinated on the floor. Family brought her to the emergency room, she occasionally gets confused when she has bladder infections, extensive past medical history. Timing/Duration: 12-24 Hours Severity: Moderate Associated Systoms: No Headaches, No Nausea/Vomiting Allergies and Home Medications Allergies Coded Allergies: Gcelrrf-Nfv-Ipc Reductase Inhibitor (Verified Allergy, Intermediate, GI UPSET, N/V, 11/06/17) cefadroxil (Unverified Allergy, Mild, 01/01/17) Sulfa (Sulfonamide Antibiotics) (Verified Allergy, Unknown, 06/18/18) Home Medications Acetaminophen 325 Mg Tablet, 325 MG PO Q4H PRN for PAIN-MILD, (Reported) Bumetanide 1 Mg Tablet, 1 MG PO DAILY PRN, (Reported) TAKES 1 TAB EVERY DAY AND CAN TAKE ANOTHER TAB IF NEEDED Cetirizine HCl 10 Mg Tablet, 10 MG PO DAILY, (Reported) Diphenhydramine HCl 25 Mg Capsule, 25 MG PO Q6H PRN for ALLERGIES, (Reported) Folic Acid 1 Mg Tablet, 1 MG PO DAILY, (Reported) Insulin Aspart 300 Units/3 Ml Solution, 8 UNITS SQ BID, (Reported) Insulin NPH Human Isophane 100 Unit/1 Ml Vial, 15 UNIT SQ DAILY, (Reported) Lactulose 10 Gm/15 Ml Solution, 20 ML PO BID PRN for CONSTIPATION-3RD LINE, (Reported) Levofloxacin 750 Mg Tablet, 750 MG PO DAILY Prescribed by: JAMES TORRES on 04/12/19 1120 Levothyroxine Sodium 175 Mcg Tablet, 175 MCG PO Q48H, (Reported) LAST FILL 09-08-2018 Magnesium Oxide 400 Mg Tablet, 400 MG PO BID, (Reported) Metoprolol Tartrate 25 Mg Tablet, 12.5 MG PO BID, (Reported) Nitroglycerin 0.4 Mg Tab.subl, 0.4 MG SL UD PRN for CHEST PAIN, (Reported) Omeprazole 40 Mg Capsule.dr, 40 MG PO BID, (Reported) Ondansetron HCl 8 Mg Tablet, 8 MG PO Q6H PRN for NAUSEA/VOMITING-1ST LINE, (Reported) Promethazine HCl 25 Mg Tablet, 25 MG PO Q8H PRN for NAUSEA/VOMITING-2ND LINE, (Reported) Tizanidine HCl 4 Mg Tablet, 2 MG PO TID PRN for MUSCLE SPASMS, (Reported) Tramadol HCl 50 Mg Tablet, 50 MG PO TID PRN for PAIN-MODERATE, (Reported) Patient Home Medication List Home Medication List Reviewed: Yes Review of Systems Review of Systems Constitutional: see HPI EENTM: see HPI Respiratory: no symptoms reported Cardiovascular: no symptoms reported Genitourinary: no symptoms reported Musculoskeletal: no symptoms reported Skin: no symptoms reported Psychiatric/Neurological: No Symptoms Reported Past Lgsigly-Dlenkb-Pipsxu Hx Patient Social History Type Used: Cigarettes Former Smoker, Quit: May 20, 1980 Recent Foreign Travel: No Contact w/Someone Who Travel: No Recent Hopitalizations: No Immunizations Up To Date Tetanus Booster (TDap): Unknown PED Vaccines UTD: Yes Date of Pneumonia Vaccine: Jan 27, 2018 Date of Influenza Vaccine: Mar 17, 2018 Seasonal Allergies Seasonal Allergies: Yes Past Medical History Surgeries: Yes Adenoidectomy, Cardiac, CABG, Coronary Stent, Open Heart Surgery, Orthopedic, Tonsillectomy, Tubal Ligation Respiratory: Yes (LEFT PLEURAL EFFUSION) Sleep Apnea Currently Using CPAP: No Currently Using BIPAP: No Cardiac: Yes (CHF, STENT X1; CABG 02/16/2018 x 4 @ [facility]) Atrial Fibrillation, Chronic Edema/Swelling, Coronary Artery Disease, Heart Attack, High Cholesterol, Hypertension Neurological: Yes Reproductive Disorders: No Female Reproductive Disorders: Denies 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 SWAMPER 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: 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 Sexually Transmitted Disease: No HIV/AIDS: No Genitourinary: Yes Renal Failure Gastrointestinal: Yes (GAVE) Gastroesophageal Reflux, Gastrointestinal Bleed, Diverticulosis, Hemorrhoids, Polyps Musculoskeletal: Yes (POOR AMBULATION--USES WALKER SINCE CABG) Degenerate Disk Disease, Arthritis, Chronic Back Pain, Fractures Endocrine: Yes Diabetes, Insulin dep HEENT: No Loss of Vision: Denies Hearing Impairment: Denies Cancer: No Psychosocial: No Anxiety Integumentary: Yes Psoriasis Blood Disorders: Yes (acute anemia) Adverse Reaction/Blood Tranf: Yes (Antibody JKA) Family Medical History Arthritis G8 BROTHER Completed stroke 19 MOTHER FH: anemia 19 MOTHER FH: lupus G8 SISTER FH: throat cancer 19 FATHER Hypertension G8 SISTER Myocardial infarction 19 MOTHER Thyroid disease 19 MOTHER G8 SISTER Hypertension, Stroke, Other Conditions/Hx Physical Exam Vital Signs Vital Signs - First Documented 05/07/19 16:15 Temp 36.9 Pulse 86 Resp 16 B/P (MAP) 141/86 (104) Pulse Ox 99 O2 Delivery Room Air Capillary Refill : Height, Weight, BMI Height: 5'4.00" Weight: 196lbs. 5.0oz. [id number]; 31.31 BMI Method:Stated General Appearance: No Apparent Distress, WD/WN, Chronically ill (alert and oriented, mentating well at this time without confusion, she would prefer to go home, daughter would prefer her to be admitted.) Eyes: Bilateral Eye Normal Inspection, Bilateral Eye PERRL, Bilateral Eye EOMI HEENT: PERRL/EOMI, TMs Normal Neck: Full Range of Motion, Normal Inspection Respiratory: No Accessory Muscle Use, No Respiratory Distress Cardiovascular: Regular Rate, Rhythm, Normal Peripheral Pulses Gastrointestinal: Normal Bowel Sounds, Non Tender, Soft Extremity: Normal Capillary Refill, Normal Inspection Neurologic/Psychiatric: Alert, Oriented x3 Skin: Normal Color, Warm/Dry Procedures/Interventions Date of ETT Placement: May 30, 2018 Time of ETT Placement: 1330 Progress/Results/Core Measures Suspected Sepsis SIRS Temperature: Pulse: Respiratory Rate: Laboratory Tests 05/07/19 16:39: White Blood Count 5.5 Blood Pressure / Mean: Laboratory Tests 05/07/19 16:39: Creatinine 2.00H, Platelet Count 173, Total Bilirubin 0.6 Results/Orders Lab Results Laboratory Tests Test 05/07/19 16:26 05/07/19 16:39 05/07/19 17:32 Range/Units Glucometer 183 H 70-110 MG/DL White Blood Count 5.5 4.3-11.0 10^3/uL Red Blood Count 3.56 L 4.35-5.85 10^6/uL Hemoglobin 10.9 L 11.5-16.0 G/DL Hematocrit 33 L 35-52 % Mean Corpuscular Volume 92 80-99 FL Mean Corpuscular Hemoglobin 31 25-34 PG Mean Corpuscular Hemoglobin Concent 33 32-36 G/DL Red Cell Distribution Width 13.9 10.0-14.5 % Platelet Count 173 130-400 10^3/uL Mean Platelet Volume 10.1 7.4-10.4 FL Neutrophils (%) (Auto) 72 42-75 % Lymphocytes (%) (Auto) 15 12-44 % Monocytes (%) (Auto) 8 0-12 % Eosinophils (%) (Auto) 4 0-10 % Basophils (%) (Auto) 0 0-10 % Neutrophils # (Auto) 4.0 1.8-7.8 X 10^3 Lymphocytes # (Auto) 0.8 L 1.0-4.0 X 10^3 Monocytes # (Auto) 0.5 0.0-1.0 X 10^3 Eosinophils # (Auto) 0.2 0.0-0.3 10^3/uL Basophils # (Auto) 0.0 0.0-0.1 10^3/uL Sodium Level 140 135-145 MMOL/L Potassium Level 4.4 3.6-5.0 MMOL/L Chloride Level 106 98-107 MMOL/L Carbon Dioxide Level 21 21-32 MMOL/L Anion Gap 13 5-14 MMOL/L Blood Urea Nitrogen 35 H 7-18 MG/DL Creatinine 2.00 H 0.60-1.30 MG/DL Estimat Glomerular Filtration Rate 25 BUN/Creatinine Ratio 18 Glucose Level 196 H 70-105 MG/DL Calcium Level 10.2 H 8.5-10.1 MG/DL Corrected Calcium 10.1 8.5-10.1 MG/DL Total Bilirubin 0.6 0.1-1.0 MG/DL Aspartate Amino Transf (AST/SGOT) 19 5-34 U/L Alanine Aminotransferase (ALT/SGPT) 12 0-55 U/L Alkaline Phosphatase 75 40-136 U/L Total Protein 7.8 6.4-8.2 GM/DL Albumin 4.1 3.2-4.5 GM/DL Urine Color YELLOW Urine Clarity CLEAR Urine pH 7.5 5-9 Urine Specific [place] 1.010 L 1.016-1.022 Urine Protein NEGATIVE NEGATIVE Urine Glucose (UA) NEGATIVE NEGATIVE Urine Ketones NEGATIVE NEGATIVE Urine Nitrite POSITIVE NEGATIVE Urine Bilirubin NEGATIVE NEGATIVE Urine Urobilinogen 0.2 < = 1.0 MG/DL Urine Leukocyte Esterase 1+ H NEGATIVE Urine RBC (Auto) NEGATIVE NEGATIVE Urine RBC NONE /HPF Urine WBC 10-25 H /HPF Urine Squamous Epithelial Cells 2-5 /HPF Urine Crystals NONE /LPF Urine Bacteria FEW H /HPF Urine Casts NONE /LPF Urine Mucus NEGATIVE /LPF Urine Culture Indicated YES My Orders Orders - MALLORIE FATIMA APRN Levofloxacin 500 Mg/100 Ml Iv (Levaquin (05/07/19 18:00) Vital Signs/I&O 05/07/19 16:15 Temp 36.9 Pulse 86 Resp 16 B/P (MAP) 141/86 (104) Pulse Ox 99 O2 Delivery Room Air Capillary Refill : Departure Communication (Admissions) Patient is adamant that she be discharged to home, this seems a reasonable approach, she remains alert and oriented, with clear speech and conversation. We will do a dose of Levaquin here then discharged to home with Levaquin every other day. She has taken this before without adverse affect. Impression Primary Impression: CKD (chronic kidney disease) Qualified Codes: N18.9 - Chronic kidney disease, unspecified Additional Impression: UTI (urinary tract infection) Qualified Codes: N30.00 - Acute cystitis without hematuria Disposition: HOME, SELF-CARE Condition: Stable Departure-Patient Inst. Decision time for Depature: 18:07 Referrals: JAMES TORRES MD (PCP/Family) Primary Care Physician Patient Instructions: Urinary Tract Infection, Adult (DC) Add. Discharge Instructions: 1. Return to ER for any concerns such as recurrent confusion, fevers or worsening symptoms. Take the Levaquin every other day for 3 more doses. Follow- up with your doctor next week. Scripts Levofloxacin (Levaquin) 500 Mg Tablet 500 MG PO every other day, #3 TAB Prov: MALLORIE FATIMA APRN 05/07/19 MALLORIE FATIMA APRN May 07, 2019 16:37 POS
[2019-05-07 16:49] LABS: BASOPHILS % (AUTO) 0 % (0-10); EOSINOPHILS # (AUTO) 0.2 10^3/uL (0.0-0.3); EOSINOPHILS % (AUTO) 4 % (0-10); HEMATOCRIT 33 % (35-52); HEMOGLOBIN 10.9 G/DL (11.5-16.0); LYMPHOCYTES # (AUTO) 0.8 X 10^3 (1.0-4.0); LYMPHOCYTES % (AUTO) 15 % (12-44); MEAN CORPUSCULAR HEMOGLOBIN 31 PG (25-34); MEAN CORPUSCULAR HGB CONC 33 G/DL (32-36); MEAN CORPUSCULAR VOLUME 92 FL (80-99); MEAN PLATELET VOLUME 10.1 FL (7.4-10.4); MONOCYTES # (AUTO) 0.5 X 10^3 (0.0-1.0); MONOCYTES % (AUTO) 8 % (0-12); NEUTROPHILS % (AUTO) 72 % (42-75); PLATELET COUNT 173 10^3/uL (130-400); RED CELL DISTRIBUTION WIDTH 13.9 % (10.0-14.5); WHITE BLOOD COUNT 5.5 10^3/uL (4.3-11.0)
[2019-05-07 17:08] LABS: ALBUMIN 4.1 GM/DL (3.2-4.5); BILIRUBIN,TOTAL 0.6 MG/DL (0.1-1.0); CALCIUM 10.2 MG/DL (8.5-10.1); POTASSIUM 4.4 MMOL/L (3.6-5.0); TOTAL PROTEIN 7.8 GM/DL (6.4-8.2)
--- NOTE | 2019-05-07 17:35 | NUR ---
Patient awake and alert. Patient assisted to bedside commode to obtain urine specimen. Urine is yellow and cloudy.
[2019-05-07 17:39] LABS: BILIRUBIN,URINE NEGATIVE (NEGATIVE); CLARITY,URINE CLEAR; COLOR,URINE YELLOW; GLUCOSE, URINE (UA) NEGATIVE (NEGATIVE); KETONES,URINE NEGATIVE (NEGATIVE); LEUKOCYTE ESTERASE ,URINE 1+ (NEGATIVE); NITRITE,URINE POSITIVE (NEGATIVE); PH,URINE 7.5 (5-9); PROTEIN,URINE NEGATIVE (NEGATIVE)
[2019-05-07 17:54] LABS: BACTERIA,URINE FEW /HPF
[2019-05-07] MEDS ORDERED: LEVOFLOXACIN 500 MG/100 ML IV 100 ML IV ONE (18:00)
[2019-05-07] MEDS ORDERED: LEVO500T2 PO (18:09)
[2019-05-07 19:07] VITALS: BP 124/84
== END 2019-05-07 19:07 | disposition home or self-care (01) ==
LOC: EDUNIT# 16:11 → ER 16:12
DX: E11.22 Type 2 diabetes mellitus with diabetic chronic kidney disease (principal); I12.9 Hypertensive chronic kidney disease with stage 1 through stage 4 chronic kidney disease, or unspecified chronic kidney disease; N18.9 Chronic kidney disease, unspecified; N39.0 Urinary tract infection, site not specified; I48.91 Unspecified atrial fibrillation; I25.10 Atherosclerotic heart disease of native coronary artery without angina pectoris; I25.2 Old myocardial infarction; E78.00 Pure hypercholesterolemia, unspecified; K21.9 Gastro-esophageal reflux disease without esophagitis; F41.9 Anxiety disorder, unspecified; D64.9 Anemia, unspecified; Z90.89 Acquired absence of other organs; Z95.1 Presence of aortocoronary bypass graft; Z95.5 Presence of coronary angioplasty implant and graft; Z98.51 Tubal ligation status; Z88.2 Allergy status to sulfonamides; Z88.1 Allergy status to other antibiotic agents; Z88.8 Allergy status to other drugs, medicaments and biological substances; Z79.4 Long term (current) use of insulin; Z87.891 Personal history of nicotine dependence; Z82.49 Family history of ischemic heart disease and other diseases of the circulatory system; Z80.8 Family history of malignant neoplasm of other organs or systems
CPT/HCPCS: 36415; 80053; 81000; 82962; 85025; 87088; 96365

== ENCOUNTER → 2019-05-16 | Outpatient (CLI) | payer MEDICARE ==
[~2019-05-16] MED LIST changes: +LEVO500T2 PO
== END ==
LOC: LAB 13:41
PROVIDERS: ATTEND Nurse Practitioner Family
DX: E03.9 Hypothyroidism, unspecified (principal)
CPT/HCPCS: 84443

== ENCOUNTER → 2019-05-30 | Outpatient (CLI) | payer MEDICARE ==
--- NOTE | 2019-05-30 14:45 | Diagnostic Imaging Report ---
INDICATION: SOB AT REST COMPARISON: 04/10/2019 FINDINGS: Frontal and lateral views of the chest demonstrate normal heart size and pulmonary vascularity. Lungs show asymmetric volume loss on the left with left basilar atelectasis. This is stable compared to prior exam. There are minimal patchy alveolar opacities of the right base as well. These however do appear more prominent when compared to prior exam. No large effusion or pneumothorax is seen on either side. Sternotomy wires and right internal jugular Port-A-Cath are noted. Osseous structures show no gross acute abnormalities. IMPRESSION: 1. Minimal increased patchy alveolar opacities of the right lung base concerning for pneumonia and/or atelectasis. 2. Stable left-sided volume loss with left basilar atelectasis. Dictated by: Dictated on workstation # [id number]
== END ==
LOC: RAD 14:04
PROVIDERS: ATTEND Nurse Practitioner Adult Health
DX: J98.11 Atelectasis (principal); J98.4 Other disorders of lung; Z95.9 Presence of cardiac and vascular implant and graft, unspecified
CPT/HCPCS: 71046

== ENCOUNTER 2019-06-05 16:24 | Inpatient (IN) | payer MEDICARE ==
[~2019-06-05] VITALS: Ht 162 cm; Wt 76.0 kg
[2019-06-05] MEDS ORDERED: PIPERACILLIN/TAZOBACTAM (BULK) 4.5 GM in NS (IVPB) 100 ML IV ONE (16:30)
[2019-06-05] MEDS ORDERED: NS IV 1000 ML 1,750 ML IV ONE (16:30)
--- NOTE | 2019-06-05 16:35 | ED Respiratory ---
General Stated Complaint: WEAKNESS Source: patient, spouse Exam Limitations: clinical condition History of Present Illness Date Seen by Provider: Jun 05, 2019 Time Seen by Provider: 16:25 Initial Comments Patient presents ER by EMS from home with chief complaint she's been for last 3 hours on the toilet she was unable to get up. She's weak, complaining of shortness of breath. Presently worse over the last couple days. She has a history of chronic anemia and bone marrow failure with weekly transfusions on Thursday, tomorrow. EMS reports her blood sugar was 320s. presents shortly after and says that today she's been kind of weak because she is chronically ill he is not sure what's going on with her. He knows that a few days ago Dr. Haywood sent her from the cancer [facility] to get an x-ray outpatient and she has not started antibiotics yet but was read out as possible pneumonia in the left lung base. Allergies and Home Medications Allergies Coded Allergies: Scpfhgk-Ojz-Ljc Reductase Inhibitor (Verified Allergy, Intermediate, GI UPSET, N/V, 11/06/17) cefadroxil (Unverified Allergy, Mild, 01/01/17) Sulfa (Sulfonamide Antibiotics) (Verified Allergy, Unknown, 06/18/18) Home Medications Acetaminophen 325 Mg Tablet, 325 MG PO Q4H PRN for PAIN-MILD, (Reported) Bumetanide 1 Mg Tablet, 1 MG PO DAILY PRN, (Reported) TAKES 1 TAB EVERY DAY AND CAN TAKE ANOTHER TAB IF NEEDED Cetirizine HCl 10 Mg Tablet, 10 MG PO DAILY, (Reported) Diphenhydramine HCl 25 Mg Capsule, 25 MG PO Q6H PRN for ALLERGIES, (Reported) Folic Acid 1 Mg Tablet, 1 MG PO DAILY, (Reported) Insulin Aspart 300 Units/3 Ml Solution, 8 UNITS SQ BID, (Reported) Insulin NPH Human Isophane 100 Unit/1 Ml Vial, 15 UNIT SQ DAILY, (Reported) Lactulose 10 Gm/15 Ml Solution, 20 ML PO BID PRN for CONSTIPATION-3RD LINE, (Reported) Levofloxacin 750 Mg Tablet, 750 MG PO DAILY Prescribed by: JAMES TORRES on 04/12/19 1120 Levofloxacin 500 Mg Tablet, 500 MG PO every other day Prescribed by: MALLORIE FATIMA on 05/07/19 1809 Levothyroxine Sodium 175 Mcg Tablet, 175 MCG PO Q48H, (Reported) LAST FILL 09-08-2018 Magnesium Oxide 400 Mg Tablet, 400 MG PO BID, (Reported) Metoprolol Tartrate 25 Mg Tablet, 12.5 MG PO BID, (Reported) Nitroglycerin 0.4 Mg Tab.subl, 0.4 MG SL UD PRN for CHEST PAIN, (Reported) Omeprazole 40 Mg Capsule.dr, 40 MG PO BID, (Reported) Ondansetron HCl 8 Mg Tablet, 8 MG PO Q6H PRN for NAUSEA/VOMITING-1ST LINE, (Reported) Promethazine HCl 25 Mg Tablet, 25 MG PO Q8H PRN for NAUSEA/VOMITING-2ND LINE, (Reported) Tizanidine HCl 4 Mg Tablet, 2 MG PO TID PRN for MUSCLE SPASMS, (Reported) Tramadol HCl 50 Mg Tablet, 50 MG PO TID PRN for PAIN-MODERATE, (Reported) Patient Home Medication List Home Medication List Reviewed: Yes Review of Systems Review of Systems Constitutional: No chills, No fever; malaise, weakness EENTM: No ear discharge, No ear pain Respiratory: cough, short of breath; No wheezing Cardiovascular: No chest pain, No edema; Hx of Intervention; No syncope; vascular heart diseas Gastrointestinal: No abdominal pain, No constipation, No diarrhea, No nausea Genitourinary: No discharge, No dysuria Musculoskeletal: No back pain, No joint pain Skin: No pruritus, No rash Past Wwcjmkm-Zbfmla-Ncdxsc Hx Patient Social History Alcohol Use: Denies Use Recreational Drug Use: No Smoking Status: Former Smoker Type Used: Cigarettes Former Smoker, Quit: May 20, 1980 2nd Hand Smoke Exposure: No Recent Hopitalizations: No Immunizations Up To Date Tetanus Booster (TDap): Unknown PED Vaccines UTD: Yes Date of Pneumonia Vaccine: Jan 27, 2018 Date of Influenza Vaccine: Mar 17, 2019 Seasonal Allergies Seasonal Allergies: Yes Past Medical History Surgeries: Yes (left knee and ankle) Adenoidectomy, Cardiac, CABG, Coronary Stent, Open Heart Surgery, Orthopedic, Tonsillectomy, Tubal Ligation Respiratory: Yes (LEFT PLEURAL EFFUSION) Sleep Apnea Currently Using CPAP: No Currently Using BIPAP: No Cardiac: Yes (CHF, STENT X1; CABG 02/16/2018 x 4 @ [facility]) Atrial Fibrillation, Chronic Edema/Swelling, Coronary Artery Disease, Heart Attack, High Cholesterol, Hypertension Neurological: Yes Reproductive Disorders: No Female Reproductive Disorders: Denies 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 Sexually Transmitted Disease: No HIV/AIDS: No Genitourinary: Yes Renal Failure Gastrointestinal: Yes (GAVE) Gastroesophageal Reflux, Gastrointestinal Bleed, Diverticulosis, Hemorrhoids, Polyps Musculoskeletal: Yes (POOR AMBULATION--USES WALKER SINCE CABG) Degenerate Disk Disease, Arthritis, Chronic Back Pain, Fractures Endocrine: Yes Diabetes, Insulin dep HEENT: No Loss of Vision: Denies Hearing Impairment: Denies Cancer: No Psychosocial: No Anxiety Integumentary: Yes Psoriasis Blood Disorders: Yes (acute anemia) Adverse Reaction/Blood Tranf: Yes (Antibody JKA) Family Medical History Arthritis G8 BROTHER Completed stroke 19 MOTHER FH: anemia 19 MOTHER FH: lupus G8 SISTER FH: throat cancer 19 FATHER Hypertension G8 SISTER Myocardial infarction 19 MOTHER Thyroid disease 19 MOTHER G8 SISTER Hypertension, Stroke, Other Conditions/Hx Physical Exam Vital Signs - First Documented 06/05/19 16:25 Temp 36.1 Pulse 101 Resp 20 B/P (MAP) 148/73 (98) Pulse Ox 97 Capillary Refill : Height: 5'4.00" Weight: 196lbs. 5.0oz. 89.812728il; 34.00 BMI Method:Stated General Appearance: WD/WN, mild distress Eyes: Bilateral Eye Normal Inspection, Bilateral Eye PERRL, Bilateral Eye EOMI HEENT: PERRL/EOMI, normal ENT inspection, TMs normal, pharynx normal Neck: full range of motion, normal inspection Respiratory: lungs clear, normal breath sounds, no respiratory distress, no accessory muscle use Cardiovascular: normal peripheral pulses, regular rate, rhythm Gastrointestinal: normal bowel sounds, non tender, soft Neurologic/Psychiatric: alert, normal mood/affect, oriented x 3 Skin: normal color, warm/dry Focused Exam Lactate Level 06/05/19 16:50: Lactic Acid Level 2.81*H Lactic Acid Level Laboratory Tests Test 06/05/19 16:50 Lactic Acid Level 2.81 MMOL/L (0.50-2.00) *H Procedures/Interventions Date of ETT Placement: May 30, 2018 Time of ETT Placement: 1330 Progress/Results/Core Measures Suspected Sepsis SIRS Temperature: Pulse: Respiratory Rate: Laboratory Tests 06/05/19 16:50: White Blood Count 6.7 Blood Pressure / Mean: 06/05/19 16:50: Lactic Acid Level 2.81*H Laboratory Tests 06/05/19 16:50: Creatinine 2.26H, INR Comment 1.1, Platelet Count 179, Total Bilirubin 0.9 Results/Orders Lab Results Laboratory Tests Test 06/05/19 16:50 06/05/19 16:55 06/05/19 17:13 Range/Units White Blood Count 6.7 4.3-11.0 10^3/uL Red Blood Count 3.51 L 4.35-5.85 10^6/uL Hemoglobin 10.8 L 11.5-16.0 G/DL Hematocrit 32 L 35-52 % Mean Corpuscular Volume 92 80-99 FL Mean Corpuscular Hemoglobin 31 25-34 PG Mean Corpuscular Hemoglobin Concent 34 32-36 G/DL Red Cell Distribution Width 13.3 10.0-14.5 % Platelet Count 179 130-400 10^3/uL Mean Platelet Volume 10.2 7.4-10.4 FL Neutrophils (%) (Auto) 78 H 42-75 % Lymphocytes (%) (Auto) 12 12-44 % Monocytes (%) (Auto) 9 0-12 % Eosinophils (%) (Auto) 1 0-10 % Basophils (%) (Auto) 0 0-10 % Neutrophils # (Auto) 5.2 1.8-7.8 X 10^3 Lymphocytes # (Auto) 0.8 L 1.0-4.0 X 10^3 Monocytes # (Auto) 0.6 0.0-1.0 X 10^3 Eosinophils # (Auto) 0.0 0.0-0.3 10^3/uL Basophils # (Auto) 0.0 0.0-0.1 10^3/uL Prothrombin Time 14.1 12.2-14.7 SEC INR Comment 1.1 0.8-1.4 Activated Partial Thromboplast Time 29 24-35 SEC Sodium Level 138 135-145 MMOL/L Potassium Level 4.6 3.6-5.0 MMOL/L Chloride Level 102 98-107 MMOL/L Carbon Dioxide Level 20 L 21-32 MMOL/L Anion Gap 16 H 5-14 MMOL/L Blood Urea Nitrogen 46 H 7-18 MG/DL Creatinine 2.26 H 0.60-1.30 MG/DL Estimat Glomerular Filtration Rate 22 BUN/Creatinine Ratio 20 Glucose Level 261 H 70-105 MG/DL Lactic Acid Level 2.81 *H 0.50-2.00 MMOL/L Calcium Level 10.3 H 8.5-10.1 MG/DL Corrected Calcium 10.1 8.5-10.1 MG/DL Total Bilirubin 0.9 0.1-1.0 MG/DL Aspartate Amino Transf (AST/SGOT) 19 5-34 U/L Alanine Aminotransferase (ALT/SGPT) 11 0-55 U/L Alkaline Phosphatase 68 40-136 U/L Troponin I < 0.028 <0.028 NG/ML Total Protein 8.0 6.4-8.2 GM/DL Albumin 4.3 3.2-4.5 GM/DL Urine Color YELLOW Urine Clarity CLEAR Urine pH 7.0 5-9 Urine Specific [place] 1.015 L 1.016-1.022 Urine Protein NEGATIVE NEGATIVE Urine Glucose (UA) NEGATIVE NEGATIVE Urine Ketones NEGATIVE NEGATIVE Urine Nitrite NEGATIVE NEGATIVE Urine Bilirubin NEGATIVE NEGATIVE Urine Urobilinogen 0.2 < = 1.0 MG/DL Urine Leukocyte Esterase TRACE NEGATIVE Urine RBC (Auto) NEGATIVE NEGATIVE Urine RBC NONE /HPF Urine WBC 25-50 H /HPF Urine Crystals NONE /LPF Urine Bacteria MODERATE H /HPF Urine Casts NONE /LPF Urine Mucus NEGATIVE /LPF Urine Culture Indicated CULTURE PENDING Blood Gas Puncture Site RT RADIAL Blood Gas Patient Temperature 37 Arterial Blood pH 7.47 H 7.37-7.43 Arterial Blood Partial Pressure CO2 33 L 35-45 MMHG Arterial Blood Partial Pressure O2 86 79-93 MMHG Arterial Blood HCO3 24 23-27 MMOL/L Arterial Blood Total CO2 24.5 21.0-31.0 MMOL/L Arterial Blood Oxygen Saturation 98 94-100 % Arterial Blood Base Excess 0.1 -2.5-2.5 MMOL/L Osvaldo Test YES-POS Blood Gas Ventilator Setting NO Blood Gas Inspired Oxygen ROOM AIR Micro Results Microbiology 06/05/19 Influenza Types A,B Antigen (CODIE) - Final, Complete My Orders Orders - HUSSAIN MOULTON Cbc With Automated Diff (06/05/19 16:30) Comprehensive Metabolic Panel (06/05/19 16:30) Blood Culture (06/05/19 16:30) Sputum Culture (06/05/19 16:30) Urinalysis (06/05/19 16:30) Urine Culture (06/05/19 16:30) Protime With Inr (06/05/19 16:30) Partial Thromboplastin Time (06/05/19 16:30) Chest 1 View, Ap/Pa Only (06/05/19 16:30) Ed Iv/Invasive Line Start (06/05/19 16:30) Ed Iv/Invasive Line Start (06/05/19 16:30) Ekg Tracing (06/05/19 16:30) Troponin I (06/05/19 16:30) Vital Signs Adult Sepsis Patie Q15M (06/05/19 16:30) O2 (06/05/19 16:30) Remove Rings In Anticipation O (06/05/19 16:30) Lactic Acid Analyzer (06/05/19 16:30) Influenza A And B Antigens (06/05/19 16:30) Ns Iv 1000 Ml (Sodium Chloride 0.9%) (06/05/19 16:30) Ed Iv/Invasive Line Start (06/05/19 16:30) Piperacillin/Tazobactam (Bulk) (Zosyn In (06/05/19 16:30) Catheter(Urinary) Insert & Ass 03,15 (06/05/19 16:35) Arterial Blood Gas (06/05/19 17:11) Medications Given in ED Current Medications Medications Dose Ordered Sig/Roberth Route Start Time Stop Time Status Last Admin Dose Admin Piperacillin Sod/ Tazobactam Sod 4.5 gm/Sodium Chloride 120 ml @ 240 mls/hr ONCE ONCE IV 06/05/19 16:30 06/05/19 16:59 DC 06/05/19 17:20 240 MLS/HR Sodium Chloride 1,750 ml @ 1,750 mls/hr ONCE ONCE IV 06/05/19 16:30 06/05/19 17:29 DC 06/05/19 17:05 1,750 MLS/HR Vital Signs/I&O 06/05/19 16:25 Temp 36.1 Pulse 101 Resp 20 B/P (MAP) 148/73 (98) Pulse Ox 97 Capillary Refill : Progress Note : Time: 18:55 Progress Note Tachycardia and shortness of breath. We'll put a Munoz catheter and get urine since she has a history of multiple UTIs for a source of sepsis. 20 mL/kg of fluid. She's had a good blood pressure since she's been here. Her heart rate responded to the fluids. Since she has syphilis borne allergy we'll give her Zosyn and vancomycin. Her creatinine is at baseline. Lactate elevated. She is on Bumex at baseline which we'll hold. ECG Initial ECG Impression Date: Jun 05, 2019 Initial ECG Impression Time: 16:36 Initial ECG Rate: 97 Initial ECG Rhythm: Normal Sinus Initial ECG Intervals: QT (473) Initial ECG Impression: Normal, Nonspecific Changes Comment No clinically relevant ST elevation or depression. Diagnostic Imaging Diagonstic Imaging: Xray Plain Films/CT/US/NM/MRI: chest (1v) Comments NAME: YOLETTE PISANO [facility] REC#: [id number] PT STATUS: REG ER : 1955 PHYSICIAN: HUSSAIN MOULTON MD ADMIT DATE: 06/05/19/ER Draft Date of Exam:06/05/19 CHEST 1 VIEW, AP/PA ONLY INDICATION: Shortness of breath. FINDINGS: There is patchy infiltrate or atelectasis in the left base similar to the exam of 05/2016. The right lung is clear. The heart size is upper limits but stable. The right IJ is at the upper SVC stable sternal wires are midline. IMPRESSION: No substantial change in left basilar infiltrate or atelectasis. Dictated on workstation # [id number] Dict: 06/05/19 1707 Trans: 06/05/19 1732 [facility] [id number] Interpreted by: JEREMY MAURER Electronically signed by: Reviewed: Reviewed by Me Departure Communication (Admissions) Time/Spoke to Admitting Phy: 18:35 Discussed case lab imaging findings, vital signs and oxygenation/ABG. She would like the patient on cardiac stepdown and agrees with Zosyn, vancomycin, DVT prophylaxis. Impression Primary Impression: Urinary tract infection Qualified Codes: N30.00 - Acute cystitis without hematuria Additional Impressions: Pneumonia Qualified Codes: J18.9 - Pneumonia, unspecified organism Debility Sepsis Qualified Codes: A41.9 - Sepsis, unspecified organism Disposition: 09 ADMITTED INPATIENT Condition: Stable Admissions Decision to Admit Reason: Admit from ER (General) Decision to Admit/Date: Jun 05, 2019 Time/Decision to Admit Time: 18:30 Departure-Patient Inst. Referrals: JAMES TORRES MD (PCP/Family) Primary Care Physician HUSSAIN MOULTON Jun 05, 2019 16:35
[2019-06-05 17:01] LABS: BILIRUBIN,URINE NEGATIVE (NEGATIVE); CLARITY,URINE CLEAR; COLOR,URINE YELLOW; GLUCOSE, URINE (UA) NEGATIVE (NEGATIVE); KETONES,URINE NEGATIVE (NEGATIVE); LEUKOCYTE ESTERASE ,URINE TRACE (NEGATIVE); NITRITE,URINE NEGATIVE (NEGATIVE); PROTEIN,URINE NEGATIVE (NEGATIVE)
[2019-06-05 17:04] LABS: BASOPHILS % (AUTO) 0 % (0-10); EOSINOPHILS % (AUTO) 1 % (0-10); HEMATOCRIT 32 % (35-52); HEMOGLOBIN 10.8 G/DL (11.5-16.0); LYMPHOCYTES # (AUTO) 0.8 X 10^3 (1.0-4.0); LYMPHOCYTES % (AUTO) 12 % (12-44); MEAN CORPUSCULAR HEMOGLOBIN 31 PG (25-34); MEAN CORPUSCULAR HGB CONC 34 G/DL (32-36); MEAN CORPUSCULAR VOLUME 92 FL (80-99); MEAN PLATELET VOLUME 10.2 FL (7.4-10.4); MONOCYTES # (AUTO) 0.6 X 10^3 (0.0-1.0); MONOCYTES % (AUTO) 9 % (0-12); NEUTROPHILS # (AUTO) 5.2 X 10^3 (1.8-7.8); NEUTROPHILS % (AUTO) 78 % (42-75); PLATELET COUNT 179 10^3/uL (130-400); RED CELL DISTRIBUTION WIDTH 13.3 % (10.0-14.5); WHITE BLOOD COUNT 6.7 10^3/uL (4.3-11.0)
[2019-06-05 17:08] LABS: BACTERIA,URINE MODERATE /HPF; WBC,URINE 25-50 /HPF
--- NOTE | 2019-06-05 17:10 | NUR ---
NO CHANGE IN CURRENT MEDS
[2019-06-05 17:17] LABS: INR 1.1 (0.8-1.4); PROTHROMBIN TIME PATIENT 14.1 SEC (12.2-14.7)
[2019-06-05 17:18] LABS: ABG BASE EXCESS 0.1 MMOL/L (-2.5-2.5); ABG OXYGEN SATURATION 98 % (94-100); ABG PCO2 33 MMHG (35-45); ABG PH 7.47 (7.37-7.43); ABG PO2 86 MMHG (79-93); ABG TCO2 24.5 MMOL/L (21.0-31.0)
[2019-06-05 17:23] LABS: ALLENS TEST YES-POS
[2019-06-05 17:24] LABS: INSPIRED O2 ROOM AIR; PATIENT TEMP 37; VENTILATOR NO
[2019-06-05 17:25] LABS: ALANINE AMINOTRANSFERASE 11 U/L (0-55); ALBUMIN 4.3 GM/DL (3.2-4.5); ALKALINE PHOSPHATASE 68 U/L (40-136); BILIRUBIN,TOTAL 0.9 MG/DL (0.1-1.0); BUN/CREATININE RATIO 20; CALCIUM 10.3 MG/DL (8.5-10.1); CARBON DIOXIDE 20 MMOL/L (21-32); CHLORIDE 102 MMOL/L (98-107); CREATININE SERUM 2.26 MG/DL (0.60-1.30); GFR ESTIMATED 22; GLUCOSE 261 MG/DL (70-105); POTASSIUM 4.6 MMOL/L (3.6-5.0); SODIUM 138 MMOL/L (135-145)
--- NOTE | 2019-06-05 17:25 | NUR ---
LACTIC ACID REPORTED TO DR MOULTON 2.81
--- NOTE | 2019-06-05 17:32 | Diagnostic Imaging Report ---
INDICATION: Shortness of breath. FINDINGS: There is patchy infiltrate or atelectasis in the left base similar to the exam of 05/2016. The right lung is clear. The heart size is upper limits but stable. The right IJ is at the upper SVC stable sternal wires are midline. IMPRESSION: No substantial change in left basilar infiltrate or atelectasis. Dictated by: Dictated on workstation # [id number]
--- NOTE | 2019-06-05 18:58 | NUR ---
LACTIC ACID DRAWN OUT OF PORT
[2019-06-05] MEDS ORDERED: MELATONIN 3 MG TABLET PO PRN (19:15)
[2019-06-05] MEDS ORDERED: ACETAMINOPHEN 500 MG TAB (TYLENOL) PO PRN (19:15)
[2019-06-05] MEDS ORDERED: CALCIUM CARBONATE 500 MG (TUMS) TAB.CHEW PO PRN (19:15)
[2019-06-05] MEDS ORDERED: HYDROcodone/APAP 5 MG/325 MG (LORTAB) TAB PO PRN (19:15)
[2019-06-05] MEDS ORDERED: ONDANSETRON 4 MG/2 ML (SDV) Z0FRAN IVP PRN (19:15)
[2019-06-05] MEDS ORDERED: ALPRAZolam 0.25 MG (XANAX) TAB PO PRN (19:15)
[2019-06-05] MEDS ORDERED: diphenhydrAMINE 25 MG TAB (BENADRYL) PO PRN (19:15)
[2019-06-05] MEDS ORDERED: fentaNYL INJECTION 100 MCG/2 ML AMP IVP PRN (19:15)
[2019-06-05] MEDS ORDERED: LOPERAMIDE 2 MG (IMODIUM) TABLET PO PRN (19:15)
[2019-06-05] MEDS ORDERED: DOCUSATE SODIUM 100 MG (COLACE) CAP PO PRN (19:15)
[2019-06-05] MEDS ORDERED: VANCOMYCIN 1500 MG/NS 500 ML IVPB IV ONE ×2 (20:30)
[2019-06-05] MEDS ORDERED: LACTULOSE SYRUP 10GM/15ML (ENULOSE) 30ML UDC PO PRN (20:30)
[2019-06-05 21:32] VITALS: BP 148/73
[2019-06-05] MEDS ORDERED: RT-ALBUTEROL SULF 2.5 MG/3 ML PRE-MIX VIAL INH PRN (21:45)
[2019-06-05] MEDS: SENNA W/DOCUSATE (SENOKOT S) TABLET PO SCH (21:48)
[2019-06-05] MEDS: meTOprolol TARTRATE 25 MG (LOPRESSOR) TABLET PO SCH (21:48)
[2019-06-05] MEDS: PANTOPRAZOLE 40 MG (PROTONIX) TAB PO SCH (21:48)
[2019-06-05] MEDS: inSUlin ASPART (NovoLOG) 1 UNIT/0.01 ML (CHARGE PER UNIT) SC SCH ×2 (21:50→22:20)
[2019-06-05] MEDS ORDERED: VANCOMYCIN 1000 MG/VIAL ONE (21:53)
[2019-06-05] MEDS ORDERED: VANCOMYCIN 500 MG/VIAL IV ONE (21:54)
[2019-06-05] MEDS ORDERED: NS IV 500 ML 500 ML ONE (21:56)
[2019-06-05] MEDS: NS W/KCL 20 MEQ/L 1,000 ML IV SCH (22:20)
[2019-06-05] MEDS: PIPERACILLIN/TAZO 4.5 GM/NS 100 ML IV SCH ×2 (22:30)
[2019-06-05 22:45] VITALS: BP 146/75
[2019-06-05] MEDS ORDERED: PIPERACILLIN/TAZO 4.5 GM VIAL (ZOSYN) IV ONE (23:01)
[2019-06-05] MEDS ORDERED: NS (IVPB) 100 ML ONE (23:02)
[2019-06-06] VITALS: BP 128/76
[2019-06-06 04:00] VITALS: BP 116/72
[2019-06-06] MEDS: NS W/KCL 20 MEQ/L 1,000 ML IV SCH ×2 (05:07→14:56)
[2019-06-06 06:02] LABS: BASOPHILS % (AUTO) 0 % (0-10); EOSINOPHILS # (AUTO) 0.3 10^3/uL (0.0-0.3); EOSINOPHILS % (AUTO) 6 % (0-10); HEMATOCRIT 29 % (35-52); HEMOGLOBIN 9.4 G/DL (11.5-16.0); LYMPHOCYTES # (AUTO) 1.1 X 10^3 (1.0-4.0); LYMPHOCYTES % (AUTO) 23 % (12-44); MEAN CORPUSCULAR HEMOGLOBIN 30 PG (25-34); MEAN CORPUSCULAR HGB CONC 32 G/DL (32-36); MEAN CORPUSCULAR VOLUME 93 FL (80-99); MEAN PLATELET VOLUME 10.1 FL (7.4-10.4); MONOCYTES # (AUTO) 0.6 X 10^3 (0.0-1.0); MONOCYTES % (AUTO) 13 % (0-12); NEUTROPHILS # (AUTO) 2.9 X 10^3 (1.8-7.8); NEUTROPHILS % (AUTO) 58 % (42-75); PLATELET COUNT 143 10^3/uL (130-400); RED CELL DISTRIBUTION WIDTH 13.5 % (10.0-14.5); WHITE BLOOD COUNT 4.9 10^3/uL (4.3-11.0)
[2019-06-06] MEDS ORDERED: PIPERACILLIN/TAZO 4.5 GM VIAL (ZOSYN) IV ONE (06:07)
[2019-06-06] MEDS ORDERED: NS (IVPB) 100 ML ONE (06:08)
[2019-06-06] MEDS: inSUlin ASPART (NovoLOG) 1 UNIT/0.01 ML (CHARGE PER UNIT) SC SCH ×4 (06:25→12:18)
[2019-06-06 06:34] LABS: ALBUMIN 3.6 GM/DL (3.2-4.5); BILIRUBIN,TOTAL 0.8 MG/DL (0.1-1.0); CALCIUM 9.3 MG/DL (8.5-10.1); CREATININE SERUM 2.09 MG/DL (0.60-1.30); POTASSIUM 4.6 MMOL/L (3.6-5.0); TOTAL PROTEIN 6.7 GM/DL (6.4-8.2)
[2019-06-06] MEDS: PIPERACILLIN/TAZO 4.5 GM/NS 100 ML IV SCH ×4 (06:36→14:56)
[2019-06-06 07:20] VITALS: BP 142/94
--- NOTE | 2019-06-06 08:02 | Diagnostic Imaging Report ---
INDICATION: Pneumonia. Upright portable AP view of the chest is obtained. Comparison is made to study of 06/05/2019. There is mild cardiomegaly and increased mild pulmonary venous congestion. There is left basilar atelectasis with continued blunting of left costophrenic sulcus. Right anterior chest wall port remains in stable position. No additional new abnormality is identified. IMPRESSION: Mild pulmonary venous congestion may indicate cardiac decompensation. There is basilar atelectasis and mild left pleural fluid and/or thickening. Dictated by: Dictated on workstation # [id number]
[2019-06-06] MEDS: meTOprolol TARTRATE 25 MG (LOPRESSOR) TABLET PO SCH (08:22)
[2019-06-06] MEDS: SENNA W/DOCUSATE (SENOKOT S) TABLET PO SCH (08:22)
[2019-06-06] MEDS: PANTOPRAZOLE 40 MG (PROTONIX) TAB PO SCH (08:22)
--- NOTE | 2019-06-06 09:54 | History & Physical ---
HPI History of Present Illness: 63 yo female brought to hospital - she is unable to say why- she states she thinks she is "goofy" and that is why, but doesn't recall exactly what happened. Denies fever, she states that she was told a week ago that she had pneumonia but she doesn't think so, doesn't feel like it. She reports history of GAVE and states her last hemoglobin was around 10 which is very good for her. She denies any other out of the ordinary aches or pains or illness, just feels confused. She wants to go home and states "I am going home [place] for sure". She states she has spent too many holidays in the hospital. She notes she does get confused at times, her is home multimedia journalist with her. Exam Limitations: clinical condition Date seen by provider: Jun 06, 2019 Time Seen by Provider: 09:51 Attending Physician Tomasa Jimenez MD PCP Carla Wilson MD Consult Date of Admission Jun 05, 2019 at 18:45 Home Medications Home Medications Reviewed patient Home Medication Reconciliation performed by pharmacy medication reconciliations mammography technician and/or nursing. Patients Allergies have been reviewed. Allergies Coded Allergies: Sxhuryr-Klf-Rme Reductase Inhibitor (Verified Allergy, Intermediate, GI UPSET, N/V, 11/06/17) cefadroxil (Unverified Allergy, Mild, 01/01/17) Sulfa (Sulfonamide Antibiotics) (Verified Allergy, Unknown, 06/18/18) GQF-Iotuev-Eowngq Hx Patient Social History Alcohol Use: Denies Use Recreational Drug Use: No Smoking Status: Former Smoker Type Used: Cigarettes 2nd Hand Smoke Exposure: No Recent Foreign Travel: No Contact w/other who traveled: No Recent Hopitalizations: Yes Recent Infectious Disease Expo: No Immunizations Up To Date Tetanus Booster (TDap): Unknown Date of Pneumonia Vaccine: May 16, 2019 Date of Influenza Vaccine: Apr 15, 2019 Past Medical History PMHx: Paroxysmal Atrial fibrillation Gastric antral vascular ectasia (GAVE) CAD NIDDM Chronic Microcytic anemia, transfusion dependent HTN HLD CHF CKD [place] (Nstemi x3) s/p CABG Hypothyroidism Anxiety Disorder Family Medical History Significant Family History: Hypertension, Stroke, Other Conditions/Hx Family History: Arthritis G8 BROTHER Completed stroke 19 MOTHER FH: anemia 19 MOTHER FH: lupus G8 SISTER FH: throat cancer 19 FATHER Hypertension G8 SISTER Myocardial infarction 19 MOTHER Thyroid disease 19 MOTHER G8 SISTER Review of Systems (CHC) Constitutional: No fever EENTM: No nose congestion, No throat pain Respiratory: No cough, No short of breath Cardiovascular: No chest pain Gastrointestinal: No abdominal pain, No constipation, No diarrhea; nausea (chronic), vomiting (chronic) Genitourinary: No dysuria Musculoskeletal: joint pain (chronic) Skin: pruritus (where she has heart monitor and also her scalp); No rash Reviewed Test Results Reviewed Test Results Lab Laboratory Tests Test 06/05/19 16:50 06/05/19 16:55 06/05/19 17:13 06/05/19 18:58 Range/Units White Blood Count 6.7 4.3-11.0 10^3/uL Red Blood Count 3.51 L 4.35-5.85 10^6/uL Hemoglobin 10.8 L 11.5-16.0 G/DL Hematocrit 32 L 35-52 % Mean Corpuscular Volume 92 80-99 FL Mean Corpuscular Hemoglobin 31 25-34 PG Mean Corpuscular Hemoglobin Concent 34 32-36 G/DL Red Cell Distribution Width 13.3 10.0-14.5 % Platelet Count 179 130-400 10^3/uL Mean Platelet Volume 10.2 7.4-10.4 FL Neutrophils (%) (Auto) 78 H 42-75 % Lymphocytes (%) (Auto) 12 12-44 % Monocytes (%) (Auto) 9 0-12 % Eosinophils (%) (Auto) 1 0-10 % Basophils (%) (Auto) 0 0-10 % Neutrophils # (Auto) 5.2 1.8-7.8 X 10^3 Lymphocytes # (Auto) 0.8 L 1.0-4.0 X 10^3 Monocytes # (Auto) 0.6 0.0-1.0 X 10^3 Eosinophils # (Auto) 0.0 0.0-0.3 10^3/uL Basophils # (Auto) 0.0 0.0-0.1 10^3/uL Prothrombin Time 14.1 12.2-14.7 SEC INR Comment 1.1 0.8-1.4 Activated Partial Thromboplast Time 29 24-35 SEC Sodium Level 138 135-145 MMOL/L Potassium Level 4.6 3.6-5.0 MMOL/L Chloride Level 102 98-107 MMOL/L Carbon Dioxide Level 20 L 21-32 MMOL/L Anion Gap 16 H 5-14 MMOL/L Blood Urea Nitrogen 46 H 7-18 MG/DL Creatinine 2.26 H 0.60-1.30 MG/DL Estimat Glomerular Filtration Rate 22 BUN/Creatinine Ratio 20 Glucose Level 261 H 70-105 MG/DL Lactic Acid Level 2.81 *H 1.68 0.50-2.00 MMOL/L Calcium Level 10.3 H 8.5-10.1 MG/DL Corrected Calcium 10.1 8.5-10.1 MG/DL Total Bilirubin 0.9 0.1-1.0 MG/DL Aspartate Amino Transf (AST/SGOT) 19 5-34 U/L Alanine Aminotransferase (ALT/SGPT) 11 0-55 U/L Alkaline Phosphatase 68 40-136 U/L Troponin I < 0.028 <0.028 NG/ML Total Protein 8.0 6.4-8.2 GM/DL Albumin 4.3 3.2-4.5 GM/DL Urine Color YELLOW Urine Clarity CLEAR Urine pH 7.0 5-9 Urine Specific [place] 1.015 L 1.016-1.022 Urine Protein NEGATIVE NEGATIVE Urine Glucose (UA) NEGATIVE NEGATIVE Urine Ketones NEGATIVE NEGATIVE Urine Nitrite NEGATIVE NEGATIVE Urine Bilirubin NEGATIVE NEGATIVE Urine Urobilinogen 0.2 < = 1.0 MG/DL Urine Leukocyte Esterase TRACE NEGATIVE Urine RBC (Auto) NEGATIVE NEGATIVE Urine RBC NONE /HPF Urine WBC 25-50 H /HPF Urine Crystals NONE /LPF Urine Bacteria MODERATE H /HPF Urine Casts NONE /LPF Urine Mucus NEGATIVE /LPF Urine Culture Indicated CULTURE PENDING Blood Gas Puncture Site RT RADIAL Blood Gas Patient Temperature 37 Arterial Blood pH 7.47 H 7.37-7.43 Arterial Blood Partial Pressure CO2 33 L 35-45 MMHG Arterial Blood Partial Pressure O2 86 79-93 MMHG Arterial Blood HCO3 24 23-27 MMOL/L Arterial Blood Total CO2 24.5 21.0-31.0 MMOL/L Arterial Blood Oxygen Saturation 98 94-100 % Arterial Blood Base Excess 0.1 -2.5-2.5 MMOL/L Osvaldo Test YES-POS Blood Gas Ventilator Setting NO Blood Gas Inspired Oxygen ROOM AIR Test 06/05/19 21:19 06/06/19 05:50 06/06/19 06:03 06/06/19 08:21 Range/Units Glucometer 173 H 147 H 262 H 70-110 MG/DL White Blood Count 4.9 4.3-11.0 10^3/uL Red Blood Count 3.12 L 4.35-5.85 10^6/uL Hemoglobin 9.4 L 11.5-16.0 G/DL Hematocrit 29 L 35-52 % Mean Corpuscular Volume 93 80-99 FL Mean Corpuscular Hemoglobin 30 25-34 PG Mean Corpuscular Hemoglobin Concent 32 32-36 G/DL Red Cell Distribution Width 13.5 10.0-14.5 % Platelet Count 143 130-400 10^3/uL Mean Platelet Volume 10.1 7.4-10.4 FL Neutrophils (%) (Auto) 58 42-75 % Lymphocytes (%) (Auto) 23 12-44 % Monocytes (%) (Auto) 13 H 0-12 % Eosinophils (%) (Auto) 6 0-10 % Basophils (%) (Auto) 0 0-10 % Neutrophils # (Auto) 2.9 1.8-7.8 X 10^3 Lymphocytes # (Auto) 1.1 1.0-4.0 X 10^3 Monocytes # (Auto) 0.6 0.0-1.0 X 10^3 Eosinophils # (Auto) 0.3 0.0-0.3 10^3/uL Basophils # (Auto) 0.0 0.0-0.1 10^3/uL Sodium Level 141 135-145 MMOL/L Potassium Level 4.6 3.6-5.0 MMOL/L Chloride Level 111 H 98-107 MMOL/L Carbon Dioxide Level 19 L 21-32 MMOL/L Anion Gap 11 5-14 MMOL/L Blood Urea Nitrogen 37 H 7-18 MG/DL Creatinine 2.09 H 0.60-1.30 MG/DL Estimat Glomerular Filtration Rate 24 BUN/Creatinine Ratio 18 Glucose Level 158 H 70-105 MG/DL Calcium Level 9.3 8.5-10.1 MG/DL Corrected Calcium 9.6 8.5-10.1 MG/DL Total Bilirubin 0.8 0.1-1.0 MG/DL Aspartate Amino Transf (AST/SGOT) 19 5-34 U/L Alanine Aminotransferase (ALT/SGPT) 10 0-55 U/L Alkaline Phosphatase 58 40-136 U/L Troponin I 0.030 H <0.028 NG/ML Total Protein 6.7 6.4-8.2 GM/DL Albumin 3.6 3.2-4.5 GM/DL Physical Exam-([facility]) Physical Exam Vital Signs VS - Last 72 Hours, by Label 06/05/19 06/05/19 06/05/19 06/05/19 16:25 18:48 19:00 20:30 Temp 36.1 Pulse 101 98 93 Resp 20 18 B/P (MAP) 148/73 (98) 142/62 Pulse Ox 97 95 96 O2 Delivery Room Air 06/05/19 06/05/19 06/05/19 06/06/19 21:00 21:32 22:45 00:00 Temp 36.1 37.2 36.8 Pulse 101 101 90 Resp 19 16 B/P (MAP) 146/75 (98) 128/76 (93) Pulse Ox 99 97 95 96 O2 Delivery Room Air Room Air 06/06/19 06/06/19 06/06/19 06/06/19 01:00 04:00 07:00 07:20 Temp 37.0 36.8 Pulse 93 70 83 87 Resp 16 18 B/P (MAP) 116/72 (87) 142/94 (110) Pulse Ox 96 96 O2 Delivery Room Air Room Air 06/06/19 06/06/19 06/06/19 06/06/19 08:00 09:00 11:50 12:00 Temp 37.5 Pulse 73 Resp 16 B/P (MAP) 137/62 (87) Pulse Ox 96 96 95 O2 Delivery Room Air Room Air Room Air Room Air 06/06/19 06/06/19 12:44 15:00 Temp 37.5 Pulse 64 64 Resp 16 B/P (MAP) 137/62 Pulse Ox 95 O2 Delivery Room Air Capillary Refill : Less Than 3 Seconds General Appearance: no apparent distress Cardiovascular: regular rate, rhythm, no murmur Neurologic/Psychiatric: alert, normal mood/affect, other (oriented to self and location) Skin: normal color, warm/dry Clinical Quality Measures DVT/VTE Risk/Contraindication: Risk Factor Score Per Nursin RFS Level Per Nursing on Admit: 4+=Very High TOMASA JIMENEZ MD Jun 06, 2019 09:54
[2019-06-06 11:50] VITALS: BP 137/62
--- NOTE | 2019-06-06 12:20 | Discharge Instructions ---
Discharge [facility] Discharge Medications Continued Medications: Acetaminophen (Tylenol) 325 Mg Tablet 325 MG PO Q4H PRN for PAIN-MILD, TAB Bumetanide (Bumetanide) 1 Mg Tablet 1 MG PO DAILY PRN, TAB TAKES 1 TAB EVERY DAY AND CAN TAKE ANOTHER TAB IF NEEDED Cetirizine HCl (Zyrtec) 10 Mg Tablet 10 MG PO DAILY, TAB Folic Acid (Folic Acid) 1 Mg Tablet 1 MG PO DAILY, TAB Insulin Aspart (Novolog Flexpen) 300 Units/3 Ml Solution 8 UNITS SQ BID, EA Insulin NPH Human Isophane (Novolin N) 100 Unit/1 Ml Vial 15 UNIT SQ DAILY Lactulose (Lactulose) 10 Gm/15 Ml Solution 20 ML PO BID PRN for CONSTIPATION-3RD LINE, EA Levothyroxine Sodium (Levothyroxine Sodium) 175 Mcg Tablet 175 MCG PO Q48H, TAB LAST FILL 09-08-2018 Magnesium Oxide (Magox 400) 400 Mg Tablet 400 MG PO BID, TAB Metoprolol Tartrate (Metoprolol Tartrate) 25 Mg Tablet 12.5 MG PO BID, TAB Nitroglycerin (Nitrostat) 0.4 Mg Tab.subl 0.4 MG SL UD PRN for CHEST PAIN, TAB Omeprazole (Omeprazole) 40 Mg Capsule.dr 40 MG PO BID, CAP Ondansetron HCl (Zofran) 8 Mg Tablet 8 MG PO Q6H PRN for NAUSEA/VOMITING-1ST LINE, TAB Tizanidine HCl (Tizanidine HCl) 4 Mg Tablet 2 MG PO TID PRN for MUSCLE SPASMS, TAB Tramadol HCl (Tramadol HCl) 50 Mg Tablet 50 MG PO TID PRN for PAIN-MODERATE, TAB Discontinued Medications: Diphenhydramine HCl (Benadryl) 25 Mg Capsule 25 MG PO Q6H PRN for ALLERGIES, CAP Levofloxacin (Levaquin) 750 Mg Tablet 750 MG PO DAILY, #3 TAB Levofloxacin (Levaquin) 500 Mg Tablet 500 MG PO every other day, #3 TAB Promethazine HCl (Promethazine Tablet) 25 Mg Tablet 25 MG PO Q8H PRN for NAUSEA/VOMITING-2ND LINE, TAB Patient Instructions Goal/Follow Up Appt: Follow up with Bia Nuno APRN (Nurse practitioner with Dr. Wilson) on Jun 09 at 1120 am. Patient Instructions: Hold promethazine and benadryl which may worsen confusion and weakness. Return to The Hospital For: Fever, inability to keep down medications Activity & Diet Discharge Diet: ADA Diet Activity as Tolerated: Yes Copy Copies To 1: JAMES WILSON MD, BETHANY N MD Jun 06, 2019 12:20
--- NOTE | 2019-06-06 13:00 | NUR ---
THIS NURSE NOTIFIED DR CARMONA THAT PT VITALS WERE STABLE BP WAS 137/63, HR 73, RR 16, O2 SAT 95% AND TEMP WAS 37.5. PT GETTING UP TO GO TO THE BATHROOM WITH NO ASSISTANCE. PT STATES SHE WOULD LIKE TO GO HOME. DR CARMONA SAID PT MAY DC HOME.
--- NOTE | 2019-06-06 13:50 | NUR ---
THIS NURSE CLARIFIED WITH DR CARMONA PT DOES NOT NEED ANTIBIOTICS AT HOME.
[2019-06-06 15:00] VITALS: BP 137/62
[2019-06-06] MEDS ORDERED: VANCOMYCIN 1 GM/NS 250 ML IVPB IV SCH ×2 (15:00)
--- NOTE | 2019-06-06 21:39 | Short Stay Summary ---
HPI History of Present Illness: 63 yo female brought to hospital - she is unable to say why- she states she thinks she is "goofy" and that is why, but doesn't recall exactly what happened. Denies fever, she states that she was told a week ago that she had pneumonia but she doesn't think so, doesn't feel like it. She reports history of GAVE and states her last hemoglobin was around 10 which is very good for her. She denies any other out of the ordinary aches or pains or illness, just feels confused. She wants to go home and states "I am going home [place] for sure". She states she has spent too many holidays in the hospital. She notes she does get confused at times, her is home agents' records clerk with her. Source: patient, family Exam Limitations: clinical condition Date seen by provider: Jun 06, 2019 Time Seen by Provider: 09:45 Attending Physician Juliet Jimenez MD PCP James Wilson MD Consult Date of Admission Jun 05, 2019 at 18:45 Home Medications Home Medications Reviewed patient Home Medication Reconciliation performed by pharmacy medication reconciliations geologic technician and/or nursing. Patients Allergies have been reviewed. Allergies Coded Allergies: Rlxcecv-Rxr-Isg Reductase Inhibitor (Verified Allergy, Intermediate, GI UPSET, N/V, 11/06/17) cefadroxil (Unverified Allergy, Mild, 01/01/17) Sulfa (Sulfonamide Antibiotics) (Verified Allergy, Unknown, 06/18/18) HCN-Wdiwhy-Iwtfht Hx Patient Social History Alcohol Use: Denies Use Recreational Drug Use: No Smoking Status: Former Smoker Type Used: Cigarettes 2nd Hand Smoke Exposure: No Recent Foreign Travel: No Contact w/other who traveled: No Recent Hopitalizations: Yes Recent Infectious Disease Expo: No Immunizations Up To Date Tetanus Booster (TDap): Unknown Date of Pneumonia Vaccine: May 16, 2019 Date of Influenza Vaccine: Apr 15, 2019 Past Medical History PMHx: Paroxysmal Atrial fibrillation Gastric antral vascular ectasia (GAVE) CAD NIDDM Chronic Microcytic anemia, transfusion dependent HTN HLD CHF CKD OK (Nstemi x3) s/p CABG Hypothyroidism Anxiety Disorder Family Medical History Significant Family History: Hypertension, Stroke, Other Conditions/Hx Family History: Arthritis G8 BROTHER Completed stroke 19 MOTHER FH: anemia 19 MOTHER FH: lupus G8 SISTER FH: throat cancer 19 FATHER Hypertension G8 SISTER Myocardial infarction 19 MOTHER Thyroid disease 19 MOTHER G8 SISTER Review of Systems ([facility]) Constitutional: No fever EENTM: No nose congestion, No throat pain Respiratory: No cough, No short of breath Cardiovascular: No chest pain Gastrointestinal: nausea; No vomiting Genitourinary: No dysuria Psychiatric/Neurological: See HPI Reviewed Test Results Reviewed Test Results Lab Laboratory Tests Test 06/05/19 16:50 06/05/19 16:55 06/05/19 17:13 06/05/19 18:58 Range/Units White Blood Count 6.7 4.3-11.0 10^3/uL Red Blood Count 3.51 L 4.35-5.85 10^6/uL Hemoglobin 10.8 L 11.5-16.0 G/DL Hematocrit 32 L 35-52 % Mean Corpuscular Volume 92 80-99 FL Mean Corpuscular Hemoglobin 31 25-34 PG Mean Corpuscular Hemoglobin Concent 34 32-36 G/DL Red Cell Distribution Width 13.3 10.0-14.5 % Platelet Count 179 130-400 10^3/uL Mean Platelet Volume 10.2 7.4-10.4 FL Neutrophils (%) (Auto) 78 H 42-75 % Lymphocytes (%) (Auto) 12 12-44 % Monocytes (%) (Auto) 9 0-12 % Eosinophils (%) (Auto) 1 0-10 % Basophils (%) (Auto) 0 0-10 % Neutrophils # (Auto) 5.2 1.8-7.8 X 10^3 Lymphocytes # (Auto) 0.8 L 1.0-4.0 X 10^3 Monocytes # (Auto) 0.6 0.0-1.0 X 10^3 Eosinophils # (Auto) 0.0 0.0-0.3 10^3/uL Basophils # (Auto) 0.0 0.0-0.1 10^3/uL Prothrombin Time 14.1 12.2-14.7 SEC INR Comment 1.1 0.8-1.4 Activated Partial Thromboplast Time 29 24-35 SEC Sodium Level 138 135-145 MMOL/L Potassium Level 4.6 3.6-5.0 MMOL/L Chloride Level 102 98-107 MMOL/L Carbon Dioxide Level 20 L 21-32 MMOL/L Anion Gap 16 H 5-14 MMOL/L Blood Urea Nitrogen 46 H 7-18 MG/DL Creatinine 2.26 H 0.60-1.30 MG/DL Estimat Glomerular Filtration Rate 22 BUN/Creatinine Ratio 20 Glucose Level 261 H 70-105 MG/DL Lactic Acid Level 2.81 *H 1.68 0.50-2.00 MMOL/L Calcium Level 10.3 H 8.5-10.1 MG/DL Corrected Calcium 10.1 8.5-10.1 MG/DL Total Bilirubin 0.9 0.1-1.0 MG/DL Aspartate Amino Transf (AST/SGOT) 19 5-34 U/L Alanine Aminotransferase (ALT/SGPT) 11 0-55 U/L Alkaline Phosphatase 68 40-136 U/L Troponin I < 0.028 <0.028 NG/ML Total Protein 8.0 6.4-8.2 GM/DL Albumin 4.3 3.2-4.5 GM/DL Urine Color YELLOW Urine Clarity CLEAR Urine pH 7.0 5-9 Urine Specific [place] 1.015 L 1.016-1.022 Urine Protein NEGATIVE NEGATIVE Urine Glucose (UA) NEGATIVE NEGATIVE Urine Ketones NEGATIVE NEGATIVE Urine Nitrite NEGATIVE NEGATIVE Urine Bilirubin NEGATIVE NEGATIVE Urine Urobilinogen 0.2 < = 1.0 MG/DL Urine Leukocyte Esterase TRACE NEGATIVE Urine RBC (Auto) NEGATIVE NEGATIVE Urine RBC NONE /HPF Urine WBC 25-50 H /HPF Urine Crystals NONE /LPF Urine Bacteria MODERATE H /HPF Urine Casts NONE /LPF Urine Mucus NEGATIVE /LPF Urine Culture Indicated CULTURE PENDING Blood Gas Puncture Site RT RADIAL Blood Gas Patient Temperature 37 Arterial Blood pH 7.47 H 7.37-7.43 Arterial Blood Partial Pressure CO2 33 L 35-45 MMHG Arterial Blood Partial Pressure O2 86 79-93 MMHG Arterial Blood HCO3 24 23-27 MMOL/L Arterial Blood Total CO2 24.5 21.0-31.0 MMOL/L Arterial Blood Oxygen Saturation 98 94-100 % Arterial Blood Base Excess 0.1 -2.5-2.5 MMOL/L Osvaldo Test YES-POS Blood Gas Ventilator Setting NO Blood Gas Inspired Oxygen ROOM AIR Test 06/05/19 21:19 06/06/19 05:50 06/06/19 06:03 06/06/19 08:21 Range/Units Glucometer 173 H 147 H 262 H 70-110 MG/DL White Blood Count 4.9 4.3-11.0 10^3/uL Red Blood Count 3.12 L 4.35-5.85 10^6/uL Hemoglobin 9.4 L 11.5-16.0 G/DL Hematocrit 29 L 35-52 % Mean Corpuscular Volume 93 80-99 FL Mean Corpuscular Hemoglobin 30 25-34 PG Mean Corpuscular Hemoglobin Concent 32 32-36 G/DL Red Cell Distribution Width 13.5 10.0-14.5 % Platelet Count 143 130-400 10^3/uL Mean Platelet Volume 10.1 7.4-10.4 FL Neutrophils (%) (Auto) 58 42-75 % Lymphocytes (%) (Auto) 23 12-44 % Monocytes (%) (Auto) 13 H 0-12 % Eosinophils (%) (Auto) 6 0-10 % Basophils (%) (Auto) 0 0-10 % Neutrophils # (Auto) 2.9 1.8-7.8 X 10^3 Lymphocytes # (Auto) 1.1 1.0-4.0 X 10^3 Monocytes # (Auto) 0.6 0.0-1.0 X 10^3 Eosinophils # (Auto) 0.3 0.0-0.3 10^3/uL Basophils # (Auto) 0.0 0.0-0.1 10^3/uL Sodium Level 141 135-145 MMOL/L Potassium Level 4.6 3.6-5.0 MMOL/L Chloride Level 111 H 98-107 MMOL/L Carbon Dioxide Level 19 L 21-32 MMOL/L Anion Gap 11 5-14 MMOL/L Blood Urea Nitrogen 37 H 7-18 MG/DL Creatinine 2.09 H 0.60-1.30 MG/DL Estimat Glomerular Filtration Rate 24 BUN/Creatinine Ratio 18 Glucose Level 158 H 70-105 MG/DL Calcium Level 9.3 8.5-10.1 MG/DL Corrected Calcium 9.6 8.5-10.1 MG/DL Total Bilirubin 0.8 0.1-1.0 MG/DL Aspartate Amino Transf (AST/SGOT) 19 5-34 U/L Alanine Aminotransferase (ALT/SGPT) 10 0-55 U/L Alkaline Phosphatase 58 40-136 U/L Troponin I 0.030 H <0.028 NG/ML Total Protein 6.7 6.4-8.2 GM/DL Albumin 3.6 3.2-4.5 GM/DL Test 06/06/19 11:56 Range/Units Glucometer 196 H 70-110 MG/DL Radiology CXR : FINDINGS: There is patchy infiltrate or atelectasis in the left base similar to the exam of 05/2016. The right lung is clear. The heart size is upper limits but stable. The right IJ is at the upper SVC stable sternal wires are midline. IMPRESSION: No substantial change in left basilar infiltrate or atelectasis. Physical Exam-([facility]) Physical Exam Vital Signs VS - Last 72 Hours, by Label 06/05/19 06/05/19 06/05/19 06/05/19 16:25 18:48 19:00 20:30 Temp 36.1 Pulse 101 98 93 Resp 20 18 B/P (MAP) 148/73 (98) 142/62 Pulse Ox 97 95 96 O2 Delivery Room Air 06/05/19 06/05/19 06/05/19 06/06/19 21:00 21:32 22:45 00:00 Temp 36.1 37.2 36.8 Pulse 101 101 90 Resp 19 16 B/P (MAP) 146/75 (98) 128/76 (93) Pulse Ox 99 97 95 96 O2 Delivery Room Air Room Air 06/06/19 06/06/19 06/06/19 06/06/19 01:00 04:00 07:00 07:20 Temp 37.0 36.8 Pulse 93 70 83 87 Resp 16 18 B/P (MAP) 116/72 (87) 142/94 (110) Pulse Ox 96 96 O2 Delivery Room Air Room Air 06/06/19 06/06/19 06/06/19 06/06/19 08:00 09:00 11:50 12:00 Temp 37.5 Pulse 73 Resp 16 B/P (MAP) 137/62 (87) Pulse Ox 96 96 95 O2 Delivery Room Air Room Air Room Air Room Air 06/06/19 06/06/19 12:44 15:00 Temp 37.5 Pulse 64 64 Resp 16 B/P (MAP) 137/62 Pulse Ox 95 O2 Delivery Room Air Capillary Refill : Less Than 3 Seconds General Appearance: WD/WN, no apparent distress Eyes: Bilateral Eye PERRL, Bilateral Eye EOMI HEENT: PERRL/EOMI Respiratory: lungs clear, normal breath sounds Cardiovascular: regular rate, rhythm, no edema, no murmur Gastrointestinal: normal bowel sounds, non tender, soft Extremities: no pedal edema Neurologic/Psychiatric: service greeter II-XII nml as tested, alert, normal mood/affect; No abnormal cerebellar tests; other (oriented to self and location, not date but does know it is [place] time) Skin: normal color, warm/dry, other (rounded erythematous plaques on left outer hip, possibly psoriatic) Short Stay Diagnosis Discharge Diagnosis-Short Stay Admission Diagnosis Weakness Confusion UTI Pneumonia Chronic transfusion dependent anemia Final Discharge Diagnosis Weakness- unclear etiology- possibly related to acute on chronic confusion, as she is ambulating without difficulty today Confusion- has chronic baseline confusion, but had worsening last night per family, she does not recall, thought initially to be infection related, however urine with coag negative staph and CXR with stable findings from 2016, no clear infection. This morning is alert and oriented except for date and strongly desiring to go home. is home with her and they have other family help as well. Uncertain what caused acute worsening, hold promethazine and diphenhydramine on d/c. UTI- did not continue antibiotics outpatient as culture prelim was coag neg staph, follow up outpatient. Chronic transfusion dependent anemia Conclusion Plan See final discharge diagnosis Clinical Quality Measures DVT/VTE Risk/Contraindication: Risk Factor Score Per Nursin RFS Level Per Nursing on Admit: 4+=Very High Copy Copies To 1: JAMES WILSON MD, BETHANY N MD Jun 06, 2019 21:39
[2019-06-07] MEDS ORDERED: TROUGH ORDER-PHARMACY XX ONE (14:00)
== END 2019-06-06 14:45 | disposition home or self-care (01) | DRG 948 ==
LOC: EDUNIT# 16:24 → ER 16:26 → CSD 18:45
PROVIDERS: ADMIT Internal Medicine; ATTEND Family Medicine
DX: R41.0 Disorientation, unspecified (principal); D61.9 Aplastic anemia, unspecified; I13.0 Hypertensive heart and chronic kidney disease with heart failure and stage 1 through stage 4 chronic kidney disease, or unspecified chronic kidney disease; G47.30 Sleep apnea, unspecified; I50.9 Heart failure, unspecified; N18.9 Chronic kidney disease, unspecified; I48.0 Paroxysmal atrial fibrillation; I25.10 Atherosclerotic heart disease of native coronary artery without angina pectoris; I25.2 Old myocardial infarction; E78.00 Pure hypercholesterolemia, unspecified; K21.9 Gastro-esophageal reflux disease without esophagitis; M19.90 Unspecified osteoarthritis, unspecified site; M54.9 Dorsalgia, unspecified; G89.29 Other chronic pain; E11.9 Type 2 diabetes mellitus without complications; F41.9 Anxiety disorder, unspecified; L40.9 Psoriasis, unspecified; E03.9 Hypothyroidism, unspecified; Z79.4 Long term (current) use of insulin; Z87.891 Personal history of nicotine dependence; Z95.1 Presence of aortocoronary bypass graft; Z95.5 Presence of coronary angioplasty implant and graft; Z98.51 Tubal ligation status
CPT/HCPCS: 36415; 71045; 80053; 81000; 82805; 82962; 83605; 84484; 85025; 85610; 85730; 87040; 87077; 87088; 87804; 96361; 96365

== ENCOUNTER 2019-07-11 07:44 | Outpatient (RCR) | payer MEDICARE ==
[2019-04-18 15:15] LABS: BASOPHILS % (AUTO) 0 % (0-10); EOSINOPHILS # (AUTO) 0.2 10^3/uL (0.0-0.3); EOSINOPHILS % (AUTO) 4 % (0-10); HEMATOCRIT 25 % (35-52); HEMOGLOBIN 8.1 G/DL (11.5-16.0); LYMPHOCYTES % (AUTO) 18 % (12-44); MEAN CORPUSCULAR HEMOGLOBIN 32 PG (25-34); MEAN CORPUSCULAR HGB CONC 33 G/DL (32-36); MEAN CORPUSCULAR VOLUME 96 FL (80-99); MEAN PLATELET VOLUME 10.4 FL (7.4-10.4); MONOCYTES # (AUTO) 0.6 X 10^3 (0.0-1.0); MONOCYTES % (AUTO) 11 % (0-12); NEUTROPHILS # (AUTO) 3.7 X 10^3 (1.8-7.8); NEUTROPHILS % (AUTO) 67 % (42-75); PLATELET COUNT 128 10^3/uL (130-400); WHITE BLOOD COUNT 5.6 10^3/uL (4.3-11.0)
[2019-04-18 15:39] LABS: ALBUMIN 3.4 GM/DL (3.2-4.5); BILIRUBIN,TOTAL 0.6 MG/DL (0.1-1.0); CALCIUM 8.4 MG/DL (8.5-10.1); CREATININE SERUM 2.51 MG/DL (0.60-1.30); POTASSIUM 4.9 MMOL/L (3.6-5.0); TOTAL PROTEIN 6.6 GM/DL (6.4-8.2)
[2019-04-26 13:00] LABS: BASOPHILS % (AUTO) 1 % (0-10); EOSINOPHILS # (AUTO) 0.4 10^3/uL (0.0-0.3); EOSINOPHILS % (AUTO) 7 % (0-10); HEMATOCRIT 31 % (35-52); HEMOGLOBIN 9.9 G/DL (11.5-16.0); LYMPHOCYTES # (AUTO) 1.1 X 10^3 (1.0-4.0); LYMPHOCYTES % (AUTO) 19 % (12-44); MEAN CORPUSCULAR HEMOGLOBIN 30 PG (25-34); MEAN CORPUSCULAR HGB CONC 32 G/DL (32-36); MEAN CORPUSCULAR VOLUME 95 FL (80-99); MONOCYTES # (AUTO) 0.5 X 10^3 (0.0-1.0); MONOCYTES % (AUTO) 9 % (0-12); NEUTROPHILS # (AUTO) 3.6 X 10^3 (1.8-7.8); NEUTROPHILS % (AUTO) 64 % (42-75); PLATELET COUNT 293 10^3/uL (130-400); RED CELL DISTRIBUTION WIDTH 14.3 % (10.0-14.5); WHITE BLOOD COUNT 5.6 10^3/uL (4.3-11.0)
[2019-05-02 14:14] LABS: BASOPHILS % (AUTO) 0 % (0-10); EOSINOPHILS # (AUTO) 0.4 10^3/uL (0.0-0.3); EOSINOPHILS % (AUTO) 9 % (0-10); HEMATOCRIT 32 % (35-52); HEMOGLOBIN 10.6 G/DL (11.5-16.0); LYMPHOCYTES # (AUTO) 1.1 X 10^3 (1.0-4.0); LYMPHOCYTES % (AUTO) 22 % (12-44); MEAN CORPUSCULAR HEMOGLOBIN 31 PG (25-34); MEAN CORPUSCULAR HGB CONC 33 G/DL (32-36); MEAN CORPUSCULAR VOLUME 93 FL (80-99); MEAN PLATELET VOLUME 9.4 FL (7.4-10.4); MONOCYTES # (AUTO) 0.5 X 10^3 (0.0-1.0); MONOCYTES % (AUTO) 9 % (0-12); NEUTROPHILS % (AUTO) 60 % (42-75); PLATELET COUNT 254 10^3/uL (130-400)
[2019-05-16 14:02] LABS: BASOPHILS % (AUTO) 1 % (0-10); EOSINOPHILS # (AUTO) 0.4 10^3/uL (0.0-0.3); EOSINOPHILS % (AUTO) 6 % (0-10); HEMATOCRIT 30 % (35-52); LYMPHOCYTES # (AUTO) 0.9 X 10^3 (1.0-4.0); LYMPHOCYTES % (AUTO) 14 % (12-44); MEAN CORPUSCULAR HEMOGLOBIN 31 PG (25-34); MEAN CORPUSCULAR HGB CONC 34 G/DL (32-36); MEAN CORPUSCULAR VOLUME 93 FL (80-99); MEAN PLATELET VOLUME 10.2 FL (7.4-10.4); MONOCYTES # (AUTO) 0.6 X 10^3 (0.0-1.0); MONOCYTES % (AUTO) 9 % (0-12); NEUTROPHILS # (AUTO) 4.7 X 10^3 (1.8-7.8); NEUTROPHILS % (AUTO) 71 % (42-75); PLATELET COUNT 157 10^3/uL (130-400); RED CELL DISTRIBUTION WIDTH 13.6 % (10.0-14.5); WHITE BLOOD COUNT 6.6 10^3/uL (4.3-11.0)
[2019-05-23 11:16] LABS: BASOPHILS % (AUTO) 1 % (0-10); EOSINOPHILS # (AUTO) 0.4 10^3/uL (0.0-0.3); EOSINOPHILS % (AUTO) 8 % (0-10); HEMATOCRIT 29 % (35-52); HEMOGLOBIN 9.2 G/DL (11.5-16.0); LYMPHOCYTES # (AUTO) 1.2 X 10^3 (1.0-4.0); LYMPHOCYTES % (AUTO) 26 % (12-44); MEAN CORPUSCULAR HEMOGLOBIN 31 PG (25-34); MEAN CORPUSCULAR HGB CONC 32 G/DL (32-36); MEAN CORPUSCULAR VOLUME 96 FL (80-99); MEAN PLATELET VOLUME 9.6 FL (7.4-10.4); MONOCYTES # (AUTO) 0.4 X 10^3 (0.0-1.0); MONOCYTES % (AUTO) 9 % (0-12); NEUTROPHILS # (AUTO) 2.5 X 10^3 (1.8-7.8); NEUTROPHILS % (AUTO) 56 % (42-75); PLATELET COUNT 152 10^3/uL (130-400); RED CELL DISTRIBUTION WIDTH 15.3 % (10.0-14.5); WHITE BLOOD COUNT 4.4 10^3/uL (4.3-11.0)
[2019-05-30 13:19] LABS: BASOPHILS % (AUTO) 1 % (0-10); EOSINOPHILS # (AUTO) 0.4 10^3/uL (0.0-0.3); EOSINOPHILS % (AUTO) 8 % (0-10); HEMATOCRIT 31 % (35-52); HEMOGLOBIN 10.4 G/DL (11.5-16.0); LYMPHOCYTES # (AUTO) 1.1 X 10^3 (1.0-4.0); LYMPHOCYTES % (AUTO) 21 % (12-44); MEAN CORPUSCULAR HEMOGLOBIN 31 PG (25-34); MEAN CORPUSCULAR HGB CONC 33 G/DL (32-36); MEAN CORPUSCULAR VOLUME 92 FL (80-99); MONOCYTES # (AUTO) 0.4 X 10^3 (0.0-1.0); MONOCYTES % (AUTO) 8 % (0-12); NEUTROPHILS # (AUTO) 3.3 X 10^3 (1.8-7.8); NEUTROPHILS % (AUTO) 62 % (42-75); PLATELET COUNT 170 10^3/uL (130-400); RED CELL DISTRIBUTION WIDTH 13.4 % (10.0-14.5); WHITE BLOOD COUNT 5.3 10^3/uL (4.3-11.0)
[2019-05-30 13:34] LABS: BILIRUBIN,URINE NEGATIVE (NEGATIVE); CLARITY,URINE CLEAR; COLOR,URINE YELLOW; GLUCOSE, URINE (UA) NEGATIVE (NEGATIVE); KETONES,URINE NEGATIVE (NEGATIVE); LEUKOCYTE ESTERASE ,URINE NEGATIVE (NEGATIVE); NITRITE,URINE NEGATIVE (NEGATIVE); PROTEIN,URINE NEGATIVE (NEGATIVE)
[2019-05-30 13:42] LABS: ALBUMIN 4.2 GM/DL (3.2-4.5); BILIRUBIN,TOTAL 0.6 MG/DL (0.1-1.0); CALCIUM 10.3 MG/DL (8.5-10.1); CREATININE SERUM 2.31 MG/DL (0.60-1.30); POTASSIUM 4.4 MMOL/L (3.6-5.0); TOTAL PROTEIN 7.9 GM/DL (6.4-8.2)
[2019-05-30 13:44] LABS: BACTERIA,URINE TRACE /HPF; WBC,URINE RARE /HPF
[2019-06-13 12:54] LABS: BASOPHILS % (AUTO) 1 % (0-10); EOSINOPHILS # (AUTO) 0.4 10^3/uL (0.0-0.3); EOSINOPHILS % (AUTO) 12 % (0-10); HEMATOCRIT 26 % (35-52); HEMOGLOBIN 8.6 G/DL (11.5-16.0); LYMPHOCYTES # (AUTO) 1.2 X 10^3 (1.0-4.0); LYMPHOCYTES % (AUTO) 31 % (12-44); MEAN CORPUSCULAR HEMOGLOBIN 31 PG (25-34); MEAN CORPUSCULAR HGB CONC 33 G/DL (32-36); MEAN CORPUSCULAR VOLUME 94 FL (80-99); MONOCYTES # (AUTO) 0.4 X 10^3 (0.0-1.0); MONOCYTES % (AUTO) 12 % (0-12); NEUTROPHILS # (AUTO) 1.6 X 10^3 (1.8-7.8); NEUTROPHILS % (AUTO) 44 % (42-75); PLATELET COUNT 137 10^3/uL (130-400); RED CELL DISTRIBUTION WIDTH 13.4 % (10.0-14.5); WHITE BLOOD COUNT 3.7 10^3/uL (4.3-11.0)
[2019-06-20 11:37] LABS: BASOPHILS % (AUTO) 1 % (0-10); EOSINOPHILS # (AUTO) 0.4 10^3/uL (0.0-0.3); EOSINOPHILS % (AUTO) 7 % (0-10); HEMATOCRIT 26 % (35-52); HEMOGLOBIN 8.4 G/DL (11.5-16.0); LYMPHOCYTES # (AUTO) 1.2 X 10^3 (1.0-4.0); LYMPHOCYTES % (AUTO) 21 % (12-44); MEAN CORPUSCULAR HEMOGLOBIN 30 PG (25-34); MEAN CORPUSCULAR HGB CONC 32 G/DL (32-36); MEAN CORPUSCULAR VOLUME 94 FL (80-99); MEAN PLATELET VOLUME 9.4 FL (7.4-10.4); MONOCYTES # (AUTO) 0.5 X 10^3 (0.0-1.0); MONOCYTES % (AUTO) 8 % (0-12); NEUTROPHILS # (AUTO) 3.5 X 10^3 (1.8-7.8); NEUTROPHILS % (AUTO) 64 % (42-75); PLATELET COUNT 138 10^3/uL (130-400); RED CELL DISTRIBUTION WIDTH 13.6 % (10.0-14.5); WHITE BLOOD COUNT 5.6 10^3/uL (4.3-11.0)
[2019-06-27 15:09] LABS: BASOPHILS % (AUTO) 1 % (0-10); EOSINOPHILS # (AUTO) 0.3 10^3/uL (0.0-0.3); EOSINOPHILS % (AUTO) 6 % (0-10); HEMATOCRIT 25 % (35-52); HEMOGLOBIN 8.1 G/DL (11.5-16.0); LYMPHOCYTES # (AUTO) 1.1 X 10^3 (1.0-4.0); LYMPHOCYTES % (AUTO) 21 % (12-44); MEAN CORPUSCULAR HEMOGLOBIN 30 PG (25-34); MEAN CORPUSCULAR HGB CONC 32 G/DL (32-36); MEAN CORPUSCULAR VOLUME 93 FL (80-99); MONOCYTES # (AUTO) 0.5 X 10^3 (0.0-1.0); MONOCYTES % (AUTO) 10 % (0-12); NEUTROPHILS # (AUTO) 3.2 X 10^3 (1.8-7.8); NEUTROPHILS % (AUTO) 62 % (42-75); PLATELET COUNT 190 10^3/uL (130-400); RED CELL DISTRIBUTION WIDTH 13.6 % (10.0-14.5); WHITE BLOOD COUNT 5.2 10^3/uL (4.3-11.0)
[2019-07-04 10:24] LABS: BASOPHILS % (AUTO) 0 % (0-10); EOSINOPHILS # (AUTO) 0.2 10^3/uL (0.0-0.3); EOSINOPHILS % (AUTO) 4 % (0-10); HEMATOCRIT 26 % (35-52); HEMOGLOBIN 8.6 G/DL (11.5-16.0); LYMPHOCYTES # (AUTO) 0.8 X 10^3 (1.0-4.0); LYMPHOCYTES % (AUTO) 14 % (12-44); MEAN CORPUSCULAR HEMOGLOBIN 31 PG (25-34); MEAN CORPUSCULAR HGB CONC 33 G/DL (32-36); MEAN CORPUSCULAR VOLUME 94 FL (80-99); MONOCYTES # (AUTO) 0.4 X 10^3 (0.0-1.0); MONOCYTES % (AUTO) 7 % (0-12); NEUTROPHILS # (AUTO) 4.4 X 10^3 (1.8-7.8); NEUTROPHILS % (AUTO) 76 % (42-75); PLATELET COUNT 152 10^3/uL (130-400); RED CELL DISTRIBUTION WIDTH 13.8 % (10.0-14.5); WHITE BLOOD COUNT 5.8 10^3/uL (4.3-11.0)
[~2019-07-11 07:44] MED LIST changes: +CYANOCOBALAMIN INJ 1000 MCG/ML (CANCER CENTER) ONE; -DIGO125T PO; +DIGO125T3 PO; -ENAL5TAB PO; +ENLP5T PO; +EZET10TA17 PO; -EZET10TA5 PO; +GLIM2TAB2 PO; -MAGN400T6 PO; +MAGN400T8 PO; -METO-370 PO; -METO-395 PO; +METO50TA7 PO; +MTP100TCR PO; +NS IV 500 ML (CANCER CENTER) 500 ML ONE; +OMEP40CA27 PO; -OMEP40CA36 PO; +TRM50T PO
[2019-07-11 08:17] LABS: BASOPHILS % (AUTO) 1 % (0-10); EOSINOPHILS # (AUTO) 0.4 10^3/uL (0.0-0.3); EOSINOPHILS % (AUTO) 8 % (0-10); HEMATOCRIT 22 % (35-52); HEMOGLOBIN 7.2 G/DL (11.5-16.0); LYMPHOCYTES # (AUTO) 1.3 X 10^3 (1.0-4.0); LYMPHOCYTES % (AUTO) 27 % (12-44); MEAN CORPUSCULAR HEMOGLOBIN 31 PG (25-34); MEAN CORPUSCULAR HGB CONC 32 G/DL (32-36); MEAN CORPUSCULAR VOLUME 96 FL (80-99); MEAN PLATELET VOLUME 10.1 FL (7.4-10.4); MONOCYTES # (AUTO) 0.6 X 10^3 (0.0-1.0); MONOCYTES % (AUTO) 12 % (0-12); NEUTROPHILS # (AUTO) 2.6 X 10^3 (1.8-7.8); NEUTROPHILS % (AUTO) 54 % (42-75); PLATELET COUNT 156 10^3/uL (130-400); RED CELL DISTRIBUTION WIDTH 14.5 % (10.0-14.5); WHITE BLOOD COUNT 4.9 10^3/uL (4.3-11.0)
[2019-07-11 08:37] LABS: ALBUMIN 3.8 GM/DL (3.2-4.5); BILIRUBIN,TOTAL 0.4 MG/DL (0.1-1.0); CALCIUM 8.9 MG/DL (8.5-10.1); CREATININE SERUM 3.52 MG/DL (0.60-1.30); POTASSIUM 4.3 MMOL/L (3.6-5.0); TOTAL PROTEIN 6.9 GM/DL (6.4-8.2)
[2019-07-11] MEDS ORDERED: NS IV 500 ML (CANCER CENTER) 500 ML ONE (08:45)
[2019-07-11] MEDS ORDERED: CYANOCOBALAMIN INJ 1000 MCG/ML (CANCER CENTER) ONE (11:35)
== END 2019-07-17 | disposition home or self-care (01) ==
LOC: ONC 07:44
PROVIDERS: ATTEND Internal Medicine Hematology & Oncology
DX: E11.22 Type 2 diabetes mellitus with diabetic chronic kidney disease (principal); I13.0 Hypertensive heart and chronic kidney disease with heart failure and stage 1 through stage 4 chronic kidney disease, or unspecified chronic kidney disease; N18.3 Chronic kidney disease, stage 3 (moderate); D63.1 Anemia in chronic kidney disease; E53.8 Deficiency of other specified B group vitamins; D50.9 Iron deficiency anemia, unspecified; I25.10 Atherosclerotic heart disease of native coronary artery without angina pectoris; E03.9 Hypothyroidism, unspecified; K29.51 Unspecified chronic gastritis with bleeding; I48.91 Unspecified atrial fibrillation; K74.60 Unspecified cirrhosis of liver; I50.30 Unspecified diastolic (congestive) heart failure; K64.9 Unspecified hemorrhoids; K44.9 Diaphragmatic hernia without obstruction or gangrene; E78.5 Hyperlipidemia, unspecified; E66.9 Obesity, unspecified; M19.90 Unspecified osteoarthritis, unspecified site; I47.1 Supraventricular tachycardia; K63.5 Polyp of colon; K31.811 Angiodysplasia of stomach and duodenum with bleeding; Z79.899 Other long term (current) drug therapy; Z80.0 Family history of malignant neoplasm of digestive organs; Z68.33 Body mass index [BMI] 33.0-33.9, adult
CPT/HCPCS: 36430; 36591; 80053; 81000; 82140; 82728; 83880; 84443; 85025; 86850; 86900; 86901; 86902; 86920; 86922; 96372; 99213

== ENCOUNTER 2019-07-18 10:26 | Outpatient (RCR) | payer MEDICARE ==
[2019-05-02 14:34] LABS: CALCIUM 10.2 MG/DL (8.5-10.1); CREATININE SERUM 1.59 MG/DL (0.60-1.30); POTASSIUM 4.4 MMOL/L (3.6-5.0)
[2019-05-30 13:58] LABS: CALCIUM 10.3 MG/DL (8.5-10.1); CREATININE SERUM 2.31 MG/DL (0.60-1.30); POTASSIUM 4.4 MMOL/L (3.6-5.0)
[2019-06-13 13:36] LABS: CALCIUM 9.5 MG/DL (8.5-10.1); CREATININE SERUM 1.98 MG/DL (0.60-1.30); POTASSIUM 4.5 MMOL/L (3.6-5.0)
[2019-07-18 10:42] LABS: HEMOGLOBIN 7.7 G/DL (11.5-16.0); MEAN PLATELET VOLUME 10.7 FL (7.4-10.4); RED CELL DISTRIBUTION WIDTH 14.3 % (10.0-14.5); WHITE BLOOD COUNT 5.1 10^3/uL (4.3-11.0)
[2019-07-18 10:55] LABS: CALCIUM 9.8 MG/DL (8.5-10.1); CREATININE SERUM 2.68 MG/DL (0.60-1.30); MAGNESIUM 2.4 MG/DL (1.6-2.4); POTASSIUM 3.9 MMOL/L (3.6-5.0)
[2019-07-26] MEDS ORDERED: ACET-168 PO ×2 (08:46)
[2019-07-26] MEDS ORDERED: GLUC1CAP37 PO ×2 (08:46)
[2019-07-26] MEDS ORDERED: TIZA2TAB4 PO ×2 (11:27)
[2019-07-26] MEDS ORDERED: METO10TA3 PO ×2 (11:48)
[2019-07-26] MEDS ORDERED: BUME1TAB8 PO ×2 (11:48)
[2019-07-26] MEDS ORDERED: PROM25TA14 PO ×2 (11:48)
[2019-07-26] MEDS ORDERED: METO5TAB6 PO ×2 (11:48)
== END 2019-07-31 | disposition home or self-care (01) ==
LOC: LAB 10:26
PROVIDERS: ATTEND Internal Medicine Advanced Heart Failure and Transplant Cardiology
DX: I50.32 Chronic diastolic (congestive) heart failure (principal)
CPT/HCPCS: 36415; 80048; 83735; 83880

== ENCOUNTER → 2019-07-18 | Outpatient (CLI) | payer MEDICARE ==
[~2019-07-18] MED LIST changes: -CYANOCOBALAMIN INJ 1000 MCG/ML (CANCER CENTER) ONE; -NS IV 500 ML (CANCER CENTER) 500 ML ONE
--- NOTE | 2019-07-18 12:17 | Diagnostic Imaging Report ---
INDICATION: Routine screening. No prior mammograms are available for comparison. 2-D and 3-D bilateral screening mammography was performed. The current study was also evaluated with a Computer Aided Detection (CAD) system. 3-D tomosynthesis was also performed and reviewed. FINDINGS: Scattered fibroglandular densities are identified bilaterally. There are benign calcifications in both breasts. No spiculated mass or malignant-appearing microcalcifications are seen. Axillae demonstrate an [id number] hub in the right axilla. IMPRESSION: No mammographic features suspicious for malignancy are identified. ACR BI-RADS Category 2: Benign findings. Result letter will be mailed to the patient. Note: At least 10% of breast cancer is not imaged by mammography. Dictated by: Dictated on workstation # [id number]
== END ==
LOC: RAD 09:29
PROVIDERS: ATTEND Family Medicine
DX: Z12.31 Encounter for screening mammogram for malignant neoplasm of breast (principal)
CPT/HCPCS: 77067

== ENCOUNTER 2019-07-25 15:08 | Inpatient (IN) | payer MEDICARE ==
[~2019-07-25] VITALS: Ht 162 cm; Wt 100.6 kg
[2019-07-25] VITALS (9 sets, daily range): BP systolic 100–157; BP diastolic 49–83
--- NOTE | 2019-07-25 15:20 | ED Chest Pain ---
General Stated Complaint: CHEST PAIN Source: patient (SOMEWHAT LIMITED HISTORIAN) History of Present Illness Date Seen by Provider: Jul 25, 2019 Time Seen by Provider: 15:05 Initial Comments PT ARRIVES VIA WHEELCHAIR FROM [facility] PT HAS FREQUENT BLOOD TRANSFUSIONS, AND WENT THERE TODAY-DID NOT HAVE A TRANSFUSION BECAUSE HER HGB WAS 9. PT TOLD THEM SHE HAD BEEN HAVING MID CHEST PAIN SINCE LAST NIGHT, SO THEY BROUGHT HER TO ER PT STATES HER PAIN IS IN HER EPIGASTRIC AREA PT APPEARS TO BE SOMEWHAT CONFUSED, SPEECH IS SLOW AND SOMEWHAT THICK TONGUED/SLURRED, AND HAVING DIFFICULTY WITH THOUGHT PROCESSES AND WORD-FINDING REPORT FROM [facility]ENTER STAFF WAS THAT SHE HAS HAD ISSUES WITH ELEVATED AMMONIA LEVELS IN THE PAST PT ALSO HAS A VERY EXTENSIVE CARDIAC HISTORY AND HAS HAD A 4 VESSEL CABG PT IS ALSO DIABETIC, HAS NOT CHECKED HER BLOOD SUGAR TODAY, AND DOES NOT THINK SHE HAS EATEN TODAY. PT IS VERY TEARFUL AND ANXIOUS. PT ADMITTED 06/05-06/06/19 FOR PNEUMONIA. STATES SHE THINKS THOSE SYMPTOMS ARE BETTER, BUT PT APPEARS CONFUSED TO WHAT / IF ANY SYMPTOMS SHE HAS BEEN HAVING, REGARDING PNEUMONIA. Allergies and Home Medications Allergies Coded Allergies: Yetklji-Pme-Lxy Reductase Inhibitor (Verified Allergy, Intermediate, GI UPSET, N/V, 11/06/17) cefadroxil (Unverified Allergy, Mild, 01/01/17) Sulfa (Sulfonamide Antibiotics) (Verified Allergy, Unknown, 06/18/18) Home Medications Acetaminophen 500 Mg Tablet, 500 MG PO Q4H PRN for PAIN-MILD (1-4), (Reported) Bumetanide 1 Mg Tablet, 1 MG PO DAILY, (Reported) Bumetanide 1 Mg Tablet, 1 MG PO DAILY PRN for SWELLING, (Reported) MAY TAKE AN ADDITIONAL DOSE IF NEEDED Cetirizine HCl 10 Mg Tablet, 10 MG PO DAILY, (Reported) Folic Acid 1 Mg Tablet, 1 MG PO DAILY, (Reported) Glucosa Horne 2Kcl/Chondroitin Horne 1 Each Capsule, 1 CAP PO BID, (Reported) Insulin Aspart 300 Units/3 Ml Solution, 8 UNITS SQ AC, (Reported) Insulin NPH Human Isophane 100 Unit/1 Ml Vial, SQ AC, (Reported) SLIDING SCALE A Lactulose 10 Gm/15 Ml Solution, 15 ML PO TID, (Reported) Levothyroxine Sodium 175 Mcg Tablet, 175 MCG PO Q48H, (Reported) LAST FILL 03-27-2019 Magnesium Oxide 400 Mg Tablet, 400 MG PO BID, (Reported) Metoclopramide HCl 10 Mg Tablet, 10 MG PO BIDAC PRN for STOMACH UPSET, (Reported) Metolazone 5 Mg Tablet, 5 MG PO SuTh PRN for WEIGHT>195, (Reported) Metoprolol Tartrate 25 Mg Tablet, 12.5 MG PO BID, (Reported) LAST FILLED #60 03-10-19 Nitroglycerin 0.4 Mg Tab.subl, 0.4 MG SL UD PRN for CHEST PAIN, (Reported) Omeprazole 40 Mg Capsule.dr, 40 MG PO BID, (Reported) Promethazine HCl 25 Mg Tablet, 12.5 MG PO Q12H PRN for NAUSEA/VOMITING-2ND LINE, (Reported) Tizanidine HCl 2 Mg Tablet, 2 MG PO TID PRN for MUSCLE SPASMS, (Reported) Tramadol HCl 50 Mg Tablet, 50 MG PO TID PRN for PAIN-MODERATE, (Reported) Review of Systems Review of Systems Constitutional: no symptoms reported; No fever Respiratory: Denies Cough, Denies Shortness of Air Cardiovascular: See HPI, Chest Pain Gastrointestinal: See HPI, Abdominal Pain Psychiatric/Neurological: See HPI, Anxiety Past Sfrkrjf-Uuytid-Kqzovu Hx Patient Social History Type Used: Cigarettes Former Smoker, Quit: May 20, 1980 2nd Hand Smoke Exposure: No Recent Foreign Travel: No (N) Contact w/Someone Who Travel: No Recent Hopitalizations: Yes Immunizations Up To Date Tetanus Booster (TDap): Unknown PED Vaccines UTD: Yes Date of Pneumonia Vaccine: May 16, 2019 Date of Influenza Vaccine: Apr 15, 2019 Seasonal Allergies Seasonal Allergies: Yes Past Medical History Surgeries: Yes (left knee and ankle) Adenoidectomy, Cardiac, CABG, Coronary Stent, Open Heart Surgery, Orthopedic, Tonsillectomy, Tubal Ligation Respiratory: Yes (LEFT PLEURAL EFFUSION) Sleep Apnea Currently Using CPAP: No Currently Using BIPAP: No Cardiac: Yes (CHF, STENT X1; CABG 02/16/2018 x 4 @ [facility]) Atrial Fibrillation, Chronic Edema/Swelling, Coronary Artery Disease, Heart Attack, High Cholesterol, Hypertension Neurological: Yes Reproductive Disorders: No Female Reproductive Disorders: Denies 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 Sexually Transmitted Disease: No HIV/AIDS: No Genitourinary: Yes Renal Failure Gastrointestinal: Yes (GAVE) Gastroesophageal Reflux, Gastrointestinal Bleed, Diverticulosis, Hemorrhoids, Polyps Musculoskeletal: Yes (POOR AMBULATION--USES WALKER SINCE CABG) Degenerate Disk Disease, Arthritis, Chronic Back Pain, Fractures Endocrine: Yes Diabetes, Insulin dep HEENT: No Loss of Vision: Denies Hearing Impairment: Denies Cancer: No Psychosocial: No Anxiety Integumentary: Yes Psoriasis Blood Disorders: Yes (acute anemia) Adverse Reaction/Blood Tranf: Yes (Antibody JKA) Family Medical History Arthritis G8 BROTHER Completed stroke 19 MOTHER FH: anemia 19 MOTHER FH: lupus G8 SISTER FH: throat cancer 19 FATHER Hypertension G8 SISTER Myocardial infarction 19 MOTHER Thyroid disease 19 MOTHER G8 SISTER Hypertension, Stroke, Other Conditions/Hx Physical Exam Vital Signs Vital Signs - First Documented 07/25/19 15:08 Temp 36.8 Pulse 57 Resp 18 B/P (MAP) 97/41 (59) Pulse Ox 97 O2 Delivery Room Air Capillary Refill : Height, Weight, BMI Height: 5'4.00" Weight: 196lbs. 5.0oz. [id number]; 28.57 BMI Method:Stated General Appearance: Other (ANXIOUS, TEARFUL, SPEECH /MENTATION NOTED ABOVE. SOMEWHAT LETHARGIC. ) Respiratory: Normal Breath Sounds, No Accessory Muscle Use, No Respiratory Distress Cardiovascular: Regular Rate, Rhythm, No Edema, No JVD, No Murmur, Normal Peripheral Pulses Gastrointestinal: Soft, Tenderness (MILD EPIGASTRIC TENDERNESS) Extremity: Normal Capillary Refill, Normal Range of Motion, No Pedal Edema Neurologic/Psychiatric: Alert, Oriented x3 (BUT THOUGHT PROCESS AND SPEECH IS SLOWED AND SOMEWHAT DIFFICULT TO UNDERSTAND AND APPEARS TO BE SOMEWHAT CONFUSED AT TIMES. ), No Motor/Sensory Deficits, syrup blender II-XII Norm as Tested Skin: Normal Color, Warm/Dry Focused Exam Lactate Level 07/25/19 15:22: Lactic Acid Level 2.02*H 07/25/19 18:03: Lactic Acid Level 1.49 Lactic Acid Level Laboratory Tests Test 07/25/19 15:22 07/25/19 18:03 Lactic Acid Level 2.02 MMOL/L (0.50-2.00) *H 1.49 MMOL/L (0.50-2.00) Procedures/Interventions Date of ETT Placement: May 30, 2018 Time of ETT Placement: 1330 Progress/Results/Core Measures Results/Orders Lab Results Laboratory Tests Test 07/25/19 15:13 07/25/19 15:17 07/25/19 15:22 07/25/19 18:03 Range/Units Glucometer 187 H 70-110 MG/DL White Blood Count 6.0 4.3-11.0 10^3/uL Red Blood Count 2.98 L 4.35-5.85 10^6/uL Hemoglobin 9.2 L 11.5-16.0 G/DL Hematocrit 28 L 35-52 % Mean Corpuscular Volume 95 80-99 FL Mean Corpuscular Hemoglobin 31 25-34 PG Mean Corpuscular Hemoglobin Concent 33 32-36 G/DL Red Cell Distribution Width 15.3 H 10.0-14.5 % Platelet Count 213 130-400 10^3/uL Mean Platelet Volume 10.3 7.4-10.4 FL Neutrophils (%) (Auto) 65 42-75 % Lymphocytes (%) (Auto) 18 12-44 % Monocytes (%) (Auto) 10 0-12 % Eosinophils (%) (Auto) 7 0-10 % Basophils (%) (Auto) 1 0-10 % Neutrophils # (Auto) 3.9 1.8-7.8 X 10^3 Lymphocytes # (Auto) 1.1 1.0-4.0 X 10^3 Monocytes # (Auto) 0.6 0.0-1.0 X 10^3 Eosinophils # (Auto) 0.4 H 0.0-0.3 10^3/uL Basophils # (Auto) 0.0 0.0-0.1 10^3/uL Prothrombin Time 14.2 12.2-14.7 SEC INR Comment 1.1 0.8-1.4 Activated Partial Thromboplast Time 27 24-35 SEC Sodium Level 140 135-145 MMOL/L Potassium Level 3.3 L 3.6-5.0 MMOL/L Chloride Level 99 98-107 MMOL/L Carbon Dioxide Level 31 21-32 MMOL/L Anion Gap 10 5-14 MMOL/L Blood Urea Nitrogen 38 H 7-18 MG/DL Creatinine 2.65 H 0.60-1.30 MG/DL Estimat Glomerular Filtration Rate 18 BUN/Creatinine Ratio 14 Glucose Level 174 H 70-105 MG/DL Calcium Level 9.6 8.5-10.1 MG/DL Corrected Calcium 9.8 8.5-10.1 MG/DL Magnesium Level 2.4 1.6-2.4 MG/DL Total Bilirubin 0.6 0.1-1.0 MG/DL Aspartate Amino Transf (AST/SGOT) 21 5-34 U/L Alanine Aminotransferase (ALT/SGPT) 13 0-55 U/L Alkaline Phosphatase 71 40-136 U/L Ammonia 84 H 11-32 UMOL/L Total Creatine Kinase 41 29-168 U/L Creatine Kinase MB 0.6 <6.6 NG/ML Myoglobin 72.4 10.0-92.0 NG/ML Troponin I < 0.028 <0.028 NG/ML B-Type Natriuretic Peptide 199.5 H <100.0 PG/ML Total Protein 7.2 6.4-8.2 GM/DL Albumin 3.8 3.2-4.5 GM/DL Amylase Level 64 25-125 U/L Lipase 39 8-78 U/L Free Thyroxine 0.89 0.70-1.48 NG/DL TSH Potter Testing 15.88 H 0.35-4.94 UIU/ML Acetaminophen Level < 10 L 10-30 UG/ML Serum Alcohol < 10 <10 MG/DL Lactic Acid Level 2.02 *H 1.49 0.50-2.00 MMOL/L Test 07/25/19 18:20 Range/Units Urine Color YELLOW Urine Clarity CLEAR Urine pH 6.0 5-9 Urine Specific [place] 1.015 L 1.016-1.022 Urine Protein NEGATIVE NEGATIVE Urine Glucose (UA) NEGATIVE NEGATIVE Urine Ketones NEGATIVE NEGATIVE Urine Nitrite NEGATIVE NEGATIVE Urine Bilirubin NEGATIVE NEGATIVE Urine Urobilinogen 0.2 < = 1.0 MG/DL Urine Leukocyte Esterase NEGATIVE NEGATIVE Urine RBC (Auto) NEGATIVE NEGATIVE Urine RBC NONE /HPF Urine WBC 2-5 /HPF Urine Squamous Epithelial Cells 10-25 H /HPF Urine Crystals NONE /LPF Urine Bacteria MODERATE H /HPF Urine Casts NONE /LPF Urine Mucus NEGATIVE /LPF Urine Culture Indicated NO Urine Opiates Screen NEGATIVE NEGATIVE Urine Oxycodone Screen NEGATIVE NEGATIVE Urine Methadone Screen NEGATIVE NEGATIVE Urine Propoxyphene Screen NEGATIVE NEGATIVE Urine Barbiturates Screen NEGATIVE NEGATIVE Ur Tricyclic Antidepressants Screen NEGATIVE NEGATIVE Urine Phencyclidine Screen NEGATIVE NEGATIVE Urine Amphetamines Screen NEGATIVE NEGATIVE Urine Methamphetamines Screen NEGATIVE NEGATIVE Urine Benzodiazepines Screen NEGATIVE NEGATIVE Urine Cocaine Screen NEGATIVE NEGATIVE Urine Cannabinoids Screen NEGATIVE NEGATIVE Urine Legionella pneumophilia Ag Negative Micro Results Microbiology 07/25/19 Blood Culture - Preliminary, Resulted No growth 07/25/19 Blood Culture - Preliminary, Resulted No growth 07/25/19 Influenza Types A,B Antigen (CODIE) - Final, Complete My Orders Orders - JOSR GILLIS DO Accucheck Stat ONCE (07/25/19 15:11) Ed Iv/Invasive Line Start (07/25/19 15:11) Ekg Tracing (07/25/19 15:11) O2 (07/25/19 15:11) Monitor-Rhythm Ecg Trace Only (07/25/19 15:11) Acetaminophen (07/25/19 15:11) Alcohol (07/25/19 15:11) Ammonia (07/25/19 15:11) Amylase (07/25/19 15:11) BNP (07/25/19 15:11) Cbc With Automated Diff (07/25/19 15:11) Comprehensive Metabolic Panel (07/25/19 15:11) Creatine Kinase (07/25/19 15:11) Creatine Kinase Mb (07/25/19 15:11) Drug Screen Stat (Urine) (07/25/19 15:11) Lactic Acid Analyzer (07/25/19 15:11) Lipase (07/25/19 15:11) Magnesium (07/25/19 15:11) Protime With Inr (07/25/19 15:11) Partial Thromboplastin Time (07/25/19 15:11) Thyroid Analyzer (07/25/19 15:11) Ua Culture If Indicated (07/25/19 15:11) Blood Culture (07/25/19 15:11) Influenza A And B Antigens (07/25/19 15:11) Myoglobin Serum (07/25/19 15:11) Troponin I (07/25/19 15:11) Chest 1 View, Ap/Pa Only (07/25/19 15:11) Aspirin Chewable Tablet (Baby Aspirin Ch (07/25/19 15:15) Free T4 (Free Thyroxine) (07/25/19 15:17) Catheter(Urinary) Insert & Ass 03,15 (07/25/19 16:36) Vancomycin Injection (Vancomycin Injecti (07/25/19 16:45) Piperacillin Sodium/Tazobactam (Zosyn Vi (07/25/19 16:45) Lactulose Oral Solution (Enulose Oral So (07/25/19 16:45) Ondansetron Injection (Zofran Injectio (07/25/19 18:15) Ns Iv 1000 Ml (Sodium Chloride 0.9%) (07/25/19 18:50) Ed Iv/Invasive Line Start (07/25/19 18:57) Ns Iv 1000 Ml (Sodium Chloride 0.9%) (07/25/19 18:57) Medications Given in ED Vital Signs/I&O 07/25/19 07/25/19 07/25/19 07/25/19 15:08 15:08 15:10 16:15 Temp 36.8 36.8 Pulse 57 56 Resp 18 18 B/P (MAP) 97/41 (59) 100/66 Pulse Ox 97 97 97 O2 Delivery Room Air Room Air Room Air Room Air Progress Progress Note : Progress Note 1899--PT WITH IMPROVEMENT IN MENTATION, PT DOES NOT APPEAR CONFUSED, MUCH MORE ALERT, SPEECH IS MUCH IMPROVED-NOT SLURRED AND NOT HAVING ANY SIGNIFICANT PROBLEM FINDING WORDS. PT NOW STATES THAT SHE HAS BEEN VERY WEAK TODAY AND WAS NOT ABLE TO WALK INTO THE [facility]ER [facility]ENTER EARLIER TODAY--HAD TO HAVE A WHEELCHAIR. 1899--SHOWEVER, PT'S BP HAS JUST DROPPED TO 75 SYSTOLIC--ADDITIONAL FLUIDS ORDERED. BP UP. PT HAD NO COMPLAINTS OF CHEST PAIN FOR ENTIRE ER STAY NO SHORTNESS OF BREATH NO COUGH NO OTHER COMPLAINTS Initial ECG Impression Date: Jul 25, 2019 Initial ECG Impression Time: 15:13 Initial ECG Rate: 62 Initial ECG Rhythm: Normal Sinus (PAC'S, IVCD) Diagnostic Imaging Comments CXR--CONTINUED LLL ATELECTASIS, SCAR OR INFILTRATE, MILD RIGHT BASILAR ATELECTASIS, CARDIOMEGALY WITHOUT VASCULAR CONGESTION--PER RADIOLOGIST REPORT AT 1600 Reviewed: Reviewed by Me Departure Communication (Admissions) 1849--DISCUSSED WITH DR. GARCIA HERE IN ER, SHE IS IN TO SEE PT. WILL ADMIT PT TO ICU. Impression Primary Impression: Chest pain Additional Impressions: MILD CONFUSION Word finding difficulty ELEVATED AMMONIA LEVEL IDDM (insulin dependent diabetes mellitus) Chronic renal failure HX OF CIRRHOSIS/CHRONIC LIVER DISEASE Hx of CABG GAVE (gastric antral vascular ectasia) Chronic anemia Severe sepsis PERSISTENT LLL PNEUMONIA Elevated TSH Disposition: ADMITTED INPATIENT Condition: Improved Admissions Decision to Admit Reason: Admit from ER (General) Decision to Admit/Date: Jul 25, 2019 Time/Decision to Admit Time: 18:55 Departure-Patient Inst. Referrals: JAMES TORRES MD (PCP/Family) Primary Care Physician JOSR GILLIS DO Jul 25, 2019 15:19
[2019-07-25 15:27] LABS: BASOPHILS % (AUTO) 1 % (0-10); EOSINOPHILS # (AUTO) 0.4 10^3/uL (0.0-0.3); EOSINOPHILS % (AUTO) 7 % (0-10); HEMATOCRIT 28 % (35-52); HEMOGLOBIN 9.2 G/DL (11.5-16.0); LYMPHOCYTES # (AUTO) 1.1 X 10^3 (1.0-4.0); LYMPHOCYTES % (AUTO) 18 % (12-44); MEAN CORPUSCULAR HEMOGLOBIN 31 PG (25-34); MEAN CORPUSCULAR HGB CONC 33 G/DL (32-36); MEAN CORPUSCULAR VOLUME 95 FL (80-99); MEAN PLATELET VOLUME 10.3 FL (7.4-10.4); MONOCYTES # (AUTO) 0.6 X 10^3 (0.0-1.0); MONOCYTES % (AUTO) 10 % (0-12); NEUTROPHILS # (AUTO) 3.9 X 10^3 (1.8-7.8); NEUTROPHILS % (AUTO) 65 % (42-75); PLATELET COUNT 213 10^3/uL (130-400); RED CELL DISTRIBUTION WIDTH 15.3 % (10.0-14.5)
[2019-07-25] MEDS: ASPIRIN 81 MG CHEW (CHILDREN'S ASA) PO ONE ×2 (15:29→15:42)
[2019-07-25 15:57] LABS: ALANINE AMINOTRANSFERASE 13 U/L (0-55); ALBUMIN 3.8 GM/DL (3.2-4.5); ALKALINE PHOSPHATASE 71 U/L (40-136); AMMONIA 84 UMOL/L (11-32); AMYLASE 64 U/L (25-125); BILIRUBIN,TOTAL 0.6 MG/DL (0.1-1.0); BUN/CREATININE RATIO 14; CALCIUM 9.6 MG/DL (8.5-10.1); CARBON DIOXIDE 31 MMOL/L (21-32); CHLORIDE 99 MMOL/L (98-107); CREATINE KINASE 41 U/L (29-168); CREATININE SERUM 2.65 MG/DL (0.60-1.30); GFR ESTIMATED 18; GLUCOSE 174 MG/DL (70-105); LIPASE 39 U/L (8-78); MAGNESIUM 2.4 MG/DL (1.6-2.4); POTASSIUM 3.3 MMOL/L (3.6-5.0); SODIUM 140 MMOL/L (135-145); TOTAL PROTEIN 7.2 GM/DL (6.4-8.2)
--- NOTE | 2019-07-25 15:58 | Diagnostic Imaging Report ---
CLINICAL INDICATION: Patient with chest pain. EXAM: Portable chest x-ray, upright view. COMPARISONS: Chest x-ray dated 06/06/2019. FINDINGS: There is slightly improved aeration of the left lung base with continued left basilar atelectasis and/or infiltrate. There is stable elevation of the left hemidiaphragm. There is mild right lung base atelectasis. There is no pleural effusion or pneumothorax. There is stable mild cardiomegaly with no significant pulmonary vascular congestion which has decreased compared to the prior study. Postop changes to the chest with sternotomy wires and mediastinal clips are seen. Tizftf-a-Ymbx is seen overlying the right chest in stable position. IMPRESSION: 1: There is slightly improved aeration of the left lung base with continued left basilar atelectasis or scarring. Superimposed infiltrate cannot be completely excluded. 2: There is mild right basilar atelectasis. 3: There is cardiomegaly with no significant pulmonary vascular congestion. Dictated by: Dictated on workstation # [id number]
[2019-07-25 15:59] LABS: ACETAMINOPHEN < 10 UG/ML (10-30)
[2019-07-25 16:17] LABS: CREATINE KINASE MB 0.6 NG/ML (<6.6); TSH (THYROID ANALYZER) 15.88 UIU/ML (0.35-4.94)
[2019-07-25] MEDS ORDERED: LACTULOSE SYRUP 10GM/15ML (ENULOSE) 30ML UDC PO ONE (16:45)
[2019-07-25] MEDS ORDERED: PIPERACILLIN SODIUM/TAZOBACTAM 4.5 GM in NS (IVPB) 100 ML IV ONE (16:45)
[2019-07-25] MEDS ORDERED: VANCOMYCIN INJECTION 1,000 MG in NS (IVPB) 250 ML IV ONE (16:45)
[2019-07-25 17:04] LABS: INR 1.1 (0.8-1.4); PROTHROMBIN TIME PATIENT 14.2 SEC (12.2-14.7)
[2019-07-25 17:49] LABS: FREE T4 (FREE THYROXINE) 0.89 NG/DL (0.70-1.48)
[2019-07-25] MEDS ORDERED: ONDANSETRON 4 MG/2 ML (SDV) Z0FRAN IVP ONE (18:15)
[2019-07-25 18:28] LABS: BILIRUBIN,URINE NEGATIVE (NEGATIVE); CLARITY,URINE CLEAR; COLOR,URINE YELLOW; GLUCOSE, URINE (UA) NEGATIVE (NEGATIVE); KETONES,URINE NEGATIVE (NEGATIVE); LEUKOCYTE ESTERASE ,URINE NEGATIVE (NEGATIVE); NITRITE,URINE NEGATIVE (NEGATIVE); PROTEIN,URINE NEGATIVE (NEGATIVE)
[2019-07-25 18:46] LABS: AMPHETAMINE SCREEN, URINE NEGATIVE (NEGATIVE); BARBITURATE SCREEN URINE NEGATIVE (NEGATIVE); BENZODIAZEPINES SCREEN URINE NEGATIVE (NEGATIVE); CANNABINOID SCREEN, URINE NEGATIVE (NEGATIVE); COCAINE SCREEN URINE NEGATIVE (NEGATIVE); METHADONE STAT NEGATIVE (NEGATIVE); METHAMPHETAMINE SCREEN URINE S NEGATIVE (NEGATIVE); OPIATE SCREEN URINE NEGATIVE (NEGATIVE); OXYCODONE STAT NEGATIVE (NEGATIVE); PROPOXYPHENE STAT NEGATIVE (NEGATIVE); TRICYCLIC ANTIDEPRESSANTS SCRE NEGATIVE (NEGATIVE)
[2019-07-25] MEDS ORDERED: NS IV 1000 ML 1,000 ML ONE (18:50)
[2019-07-25 18:52] LABS: BACTERIA,URINE MODERATE /HPF
[2019-07-25] MEDS ORDERED: NS IV 1000 ML 1,000 ML IV SCH ×2 (18:57→19:02)
--- NOTE | 2019-07-25 19:00 | NUR ---
PT STATED UPON ARIVAL THAT SHE HAS A HX OF RUNNING VERY HYPOTENSIVE WITH HER BLOOD PRESSURE, NORMAL SYSTOLIC REPORTED 100. SYSTOLIC NOTED TO BE 76. PT IS AAOX4 BUT PROVIDER IS NOTIFIED AND FLUID BOLUS AND NOREPI DRIP ORDERED FOR LOW BP.
[2019-07-25] MEDS ORDERED: NOREPINEPHRINE 4 MG/250 ML 250 ML IV ONE (19:05)
--- NOTE | 2019-07-25 20:00 | NUR ---
PT BP NOTED 99/42 ON NOREPI DRIP. PT AAOX4 AND RESPONDS APPROPRIATELY TO ALL QUESTIONS. PT PREPARED FOR ADMISSION TO THE FLOOR
--- NOTE | 2019-07-25 20:23 | History & Physical-Hospitalist ---
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 CXR revealed questionable infiltrate so she was placed on aggressive broad spectrum abx but when I arrived she was in the midst of significant hypotension requiring aggressive IVF and noted ARF of 2.6 creatinine she appeared to be in hypovolemic shock. Patient has been placed in ICU for close monitoring. Source: patient Exam Limitations: no limitations Date Seen 07/25/19 Time Seen by a Provider: 19:00 Attending Physician Sarah Morrell Holly R MD Referring Physician Date of Admission Jul 25, 2019 at 19:00 Home Medications & Allergies Home Medications Reviewed patient Home Medication Reconciliation performed by pharmacy medication reconciliations microwave technician and/or nursing. Patients Allergies have been reviewed. Allergies Allergies Coded Allergies Fttbwna-Pta-Xaa Reductase Inhibitor (Verified Allergy, Intermediate, GI UPSET, N/V, 11/06/17) cefadroxil (Unverified Allergy, Mild, 01/01/17) Sulfa (Sulfonamide Antibiotics) (Verified Allergy, Unknown, 06/18/18) Past Vuphsov-Uipohz-Iegoga Hx Past Med/Social Hx: Reviewed Nursing Past Med/Soc Hx, Reviewed and Corrections made Patient Social History Marrital Status: Employed/Student: retired Alcohol Use: Denies Use Recreational Drug Use: No Smoking Status: Former Smoker Former Smoker, Quit: May 20, 1980 Type Used: Cigarettes 2nd Hand Smoke Exposure: No Recent Foreign Travel: No (N) Contact w/other who traveled: No Recent Hopitalizations: Yes Recent Infectious Disease Expo: No Immunizations Up To Date Tetanus Booster (TDap): Unknown Pediatric: Yes Date of Pneumonia Vaccine: May 16, 2019 Date of Influenza Vaccine: Apr 15, 2019 Seasonal Allergies Seasonal Allergies: Yes Past Medical History Surgeries: Adenoidectomy, Cardiac, CABG, Coronary Stent, Open Heart Surgery, Orthopedic, Tonsillectomy, Tubal Ligation Respiratory: COPD, Sleep Apnea Currently Using CPAP: No Currently Using BIPAP: No Cardiac: Atrial Fibrillation, Chronic Edema/Swelling, Coronary Artery Disease, Heart Attack, High Cholesterol, Hypertension : No Reproductive: No Sexually Transmitted Disease: No HIV/AIDS: No Female Reproductive Disorders: Denies Menopausal Genitourinary: Renal Failure Gastrointestinal: Gastroesophageal Reflux, Gastrointestinal Bleed, Diverticulosis, Hemorrhoids, Polyps Musculoskeletal: Degenerate Disk Disease, Arthritis, Chronic Back Pain, Fractures Endocrine: Diabetes, Insulin dep Loss of Vision: Denies Hearing Impairment: Denies Psychosocial: Anxiety Skin/Integumentary: Psoriasis History of Blood Disorders: Yes (acute anemia) Adverse Reaction to Blood Wright: Yes (Antibody JKA) Family History Arthritis G8 BROTHER Completed stroke 19 MOTHER FH: anemia 19 MOTHER FH: lupus G8 SISTER FH: throat cancer 19 FATHER Hypertension G8 SISTER Myocardial infarction 19 MOTHER Thyroid disease 19 MOTHER G8 SISTER Hypertension, Stroke, Other Conditions/Hx Review of Systems Constitutional: see HPI, malaise, weakness Gastrointestinal: loss of appetite, nausea Physical Exam Physical Exam Vital Signs Vital Signs - First Documented 07/25/19 15:08 Temp 36.8 Pulse 57 Resp 18 B/P (MAP) 97/41 (59) Pulse Ox 97 O2 Delivery Room Air Capillary Refill : Less Than 3 Seconds Height, Weight, BMI Height: 5'4.00" Weight: 196lbs. 5.0oz. 89.244151cp; 28.00 BMI Method:Stated General Appearance: Anxious, Chronically ill, Moderate Distress, Other (purdy, ashen) HEENT: Other (dry MM) Respiratory: Chest Non Tender, Lungs Clear, Normal Breath Sounds, No Accessory Muscle Use, No Respiratory Distress Cardiovascular: Regular Rate, Rhythm, No Edema, No Gallop, No JVD, No Murmur, N ormal Peripheral Pulses Neurologic/Psychiatric: Alert, Oriented x3, No Motor/Sensory Deficits, Normal Mood/Affect Skin: Cool, Damp, Mottled Results Results/Procedures Labs Laboratory Tests 07/25/19 15:17 Patient resulted labs reviewed. 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 DM HTN Plan: IVF Pressors IV abx empirically Admission Status: Inpatient Order (span 2 midnights) Reason for Inpatient Admission: shock from hypovolemia Diagnosis/Problems Diagnosis/Problems (1) Hypovolemic shock (2) 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 (3) Atrial fibrillation Status: Chronic (4) Hypothyroidism Status: Chronic (5) Coronary artery disease Status: Chronic (6) Hypertension Status: Chronic (7) Type 2 diabetes mellitus with hyperglycemia Status: Chronic (8) Transfusion-dependent anemia Status: Chronic (9) Chronic renal failure Status: Acute Clinical Quality Measures AMI/AHF: ASA po Prior to arrival: SARAH Daly DO Jul 25, 2019 20:23
[2019-07-25] MEDS: NS IV 1000 ML 1,000 ML IV SCH (21:00)
[2019-07-25] MEDS ORDERED: morphine INJ 4 MG/ML 1 ML (VIAL/SYRINGE) IV PRN (21:45)
[2019-07-25] MEDS ORDERED: ACETAMINOPHEN 500 MG TAB (TYLENOL) PO PRN (21:45)
[2019-07-25] MEDS ORDERED: ONDANSETRON 4 MG/2 ML (SDV) Z0FRAN IV PRN (21:45)
[2019-07-25] MEDS ORDERED: NITROGLYCERIN 0.4 MG SL TABS BTL 25'S SL PRN (21:45)
[2019-07-25] MEDS ORDERED: VASOPRESSIN INJECTION 20 UNIT in NORMAL SALINE 100 ML IV SCH (21:46)
[2019-07-25] MEDS ORDERED: NOREPINEPHRINE 4 MG/250 ML 250 ML IV SCH (21:46)
[2019-07-25] MEDS ORDERED: NS IV ONE (22:00)
[2019-07-25] MEDS ORDERED: EPINEPHrine 1 MG INJECTION 2 MG in NS (IVPB) 250 ML IV SCH (22:00)
[2019-07-25] MEDS ORDERED: VANCOMYCIN 1 GM/NS 250 ML IVPB IV SCH ×2 (22:15)
[2019-07-26] VITALS (14 sets, daily range): BP systolic 104–140; BP diastolic 48–78
[2019-07-26] MEDS: NS IV 1000 ML 1,000 ML IV SCH ×6 (01:20→18:56)
[2019-07-26] MEDS ORDERED: PIPERACILLIN/TAZOBACTAM (BULK) 4.5 GM in NS (IVPB) 100 ML IV SCH (02:00)
[2019-07-26 03:18] LABS: BASOPHILS % (AUTO) 1 % (0-10); EOSINOPHILS # (AUTO) 0.4 10^3/uL (0.0-0.3); EOSINOPHILS % (AUTO) 7 % (0-10); HEMATOCRIT 23 % (35-52); HEMOGLOBIN 7.5 G/DL (11.5-16.0); LYMPHOCYTES # (AUTO) 0.9 X 10^3 (1.0-4.0); LYMPHOCYTES % (AUTO) 18 % (12-44); MEAN CORPUSCULAR HEMOGLOBIN 31 PG (25-34); MEAN CORPUSCULAR HGB CONC 32 G/DL (32-36); MEAN CORPUSCULAR VOLUME 95 FL (80-99); MEAN PLATELET VOLUME 9.9 FL (7.4-10.4); MONOCYTES # (AUTO) 0.5 X 10^3 (0.0-1.0); MONOCYTES % (AUTO) 10 % (0-12); NEUTROPHILS # (AUTO) 3.5 X 10^3 (1.8-7.8); NEUTROPHILS % (AUTO) 65 % (42-75); PLATELET COUNT 147 10^3/uL (130-400); RED CELL DISTRIBUTION WIDTH 15.3 % (10.0-14.5); WHITE BLOOD COUNT 5.3 10^3/uL (4.3-11.0)
[2019-07-26 03:40] LABS: ALBUMIN 3.1 GM/DL (3.2-4.5); BILIRUBIN,DIRECT 0.2 MG/DL (0.0-0.3); BILIRUBIN,INDIRECT 0.3 MG/DL; BILIRUBIN,TOTAL 0.5 MG/DL (0.1-1.0); CREATININE SERUM 2.34 MG/DL (0.60-1.30); MAGNESIUM 2.1 MG/DL (1.6-2.4); PHOSPHORUS 2.5 MG/DL (2.3-4.7); POTASSIUM 3.2 MMOL/L (3.6-5.0); TOTAL PROTEIN 5.9 GM/DL (6.4-8.2)
--- NOTE | 2019-07-26 05:14 | Pulmonary Consultation ---
History of Present Illness History of Present Illness Date Seen by Provider: Jul 26, 2019 Time Seen by Provider: 05:09 Date of Admission History of Present Illness 64yo with hx of multiple transfusions presented to ED secondary to nausea, and vomiting. She was found to have acute PNA in ED and was placed on Abx therapy. Pt was hypotensive in the ED however improved with IVF. She has had decreased fluid intake over the last 2 days. Pt was admitted to ICU for close monitoring Allergies and Home Medications Allergies Coded Allergies: Okbgpey-Agd-Rra Reductase Inhibitor (Verified Allergy, Intermediate, GI UPSET, N/V, 11/06/17) cefadroxil (Unverified Allergy, Mild, 01/01/17) Sulfa (Sulfonamide Antibiotics) (Verified Allergy, Unknown, 06/18/18) Home Medications Acetaminophen 325 Mg Tablet, 325 MG PO Q4H PRN for PAIN-MILD, (Reported) Bumetanide 1 Mg Tablet, 1 MG PO DAILY PRN, (Reported) TAKES 1 TAB EVERY DAY AND CAN TAKE ANOTHER TAB IF NEEDED Cetirizine HCl 10 Mg Tablet, 10 MG PO DAILY, (Reported) Folic Acid 1 Mg Tablet, 1 MG PO DAILY, (Reported) Insulin Aspart 300 Units/3 Ml Solution, 8 UNITS SQ BID, (Reported) Insulin NPH Human Isophane 100 Unit/1 Ml Vial, 15 UNIT SQ DAILY, (Reported) Lactulose 10 Gm/15 Ml Solution, 20 ML PO BID PRN for CONSTIPATION-3RD LINE, (Reported) Levothyroxine Sodium 175 Mcg Tablet, 175 MCG PO Q48H, (Reported) LAST FILL 09-08-2018 Magnesium Oxide 400 Mg Tablet, 400 MG PO BID, (Reported) Metoprolol Tartrate 25 Mg Tablet, 12.5 MG PO BID, (Reported) Nitroglycerin 0.4 Mg Tab.subl, 0.4 MG SL UD PRN for CHEST PAIN, (Reported) Omeprazole 40 Mg Capsule.dr, 40 MG PO BID, (Reported) Ondansetron HCl 8 Mg Tablet, 8 MG PO Q6H PRN for NAUSEA/VOMITING-1ST LINE, (Reported) Tizanidine HCl 4 Mg Tablet, 2 MG PO TID PRN for MUSCLE SPASMS, (Reported) Tramadol HCl 50 Mg Tablet, 50 MG PO TID PRN for PAIN-MODERATE, (Reported) Past Gnohmak-Tqjwhi-Alpgyj Hx Past Med/Social Hx: Reviewed Nursing Past Med/Soc Hx, Reviewed and Corrections made Patient Social History Alcohol Use: Denies Use Recreational Drug Use: No Smoking Status: Former Smoker Type Used: Cigarettes Former Smoker, Quit: May 20, 1980 2nd Hand Smoke Exposure: No Recent Foreign Travel: No (N) Contact w/Someone Who Travel: No Recent Infectious Disease Expo: No Recent Hopitalizations: Yes Physical Abuse: No Sexual Abuse: No Mistreated: No Fear: No Immunizations Up To Date Tetanus Booster (TDap): Unknown PED Vaccines UTD: Yes Date of Pneumonia Vaccine: May 16, 2019 Date of Influenza Vaccine: Apr 15, 2019 Seasonal Allergies Seasonal Allergies: Yes Past Medical History Surgeries: Yes (left knee and ankle) Adenoidectomy, Cardiac, CABG, Coronary Stent, Open Heart Surgery, Orthopedic, Tonsillectomy, Tubal Ligation Respiratory: Yes (LEFT PLEURAL EFFUSION) Sleep Apnea Currently Using CPAP: No Currently Using BIPAP: No Cardiac: Yes (CHF, STENT X1; CABG 02/16/2018 x 4 @ [facility]) Atrial Fibrillation, Chronic Edema/Swelling, Coronary Artery Disease, Heart Attack, High Cholesterol, Hypertension Neurological: Yes : No Reproductive Disorders: No Female Reproductive Disorders: Denies 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 Sexually Transmitted Disease: No HIV/AIDS: No Genitourinary: Yes Renal Failure Gastrointestinal: Yes (GAVE) Gastroesophageal Reflux, Gastrointestinal Bleed, Diverticulosis, Hemorrhoids, Polyps Musculoskeletal: Yes (POOR AMBULATION--USES WALKER SINCE CABG) Degenerate Disk Disease, Arthritis, Chronic Back Pain, Fractures Endocrine: Yes Diabetes, Insulin dep HEENT: No Loss of Vision: Denies Hearing Impairment: Denies Cancer: No Psychosocial: No Anxiety Integumentary: Yes Psoriasis Blood Disorders: Yes (acute anemia) Adverse Reaction/Blood Tranf: Yes (Antibody JKA) Family Medical History Arthritis G8 BROTHER Completed stroke 19 MOTHER FH: anemia 19 MOTHER FH: lupus G8 SISTER FH: throat cancer 19 FATHER Hypertension G8 SISTER Myocardial infarction 19 MOTHER Thyroid disease 19 MOTHER G8 SISTER Hypertension, Stroke, Other Conditions/Hx Review of Systems Time Seen by Provider: 07:37 Constitutional: Weakness, Malaise; No: Fever, Chills, Sweats, Other Eyes: No: Pain, Vision change, Conjunctivae inflammation, Eyelid inflammation, Other, Redness ENT: No: Ear pain, Ear discharge, Nose pain, Nose discharge, Nose congestion, Mouth pain, Mouth swelling, Throat pain, Throat swelling, Other Respiratory: No: Cough, Dry, Shortness of breath, SOB with excertion, Wheezing, Hemoptysis, Pleuritic Pain, Sputum, Wheezing, Other Cardiovascular: No: Chest Pain, Palpitations, Orthopnea, Paroxysmal Noc. Dyspnea, Edema, Lt Headedness, Other Gastrointestinal: Nausea, Vomiting; No: Constipation Sepsis Event Evaluation Height, Weight, BMI Height: 5'4.00" Weight: 196lbs. 5.0oz. 89.532300pa; 28.00 BMI Method:Stated Exam Exam Vital Signs Date Time Temp Pulse Resp B/P (MAP) Pulse Ox O2 Delivery O2 Flow Rate FiO2 07/25/19 23:00 85 15 117/71 (86) 94 Room Air 07/25/19 22:00 63 26 122/53 (76) 94 Room Air 07/25/19 21:45 57 9 113/57 (75) 95 Room Air 07/25/19 21:30 66 18 120/56 (77) 93 Room Air 07/25/19 21:15 54 100/49 (66) 96 Room Air 07/25/19 21:00 71 14 142/71 (94) 94 Room Air 07/25/19 20:45 61 12 137/53 (81) 95 Room Air 07/25/19 20:33 61 15 157/62 (93) 92 Room Air 07/25/19 20:32 80 07/25/19 20:31 103 145/83 (103) Room Air 07/25/19 20:20 36.8 63 18 92/56 (59) 95 Room Air 07/25/19 16:15 36.8 56 18 100/66 97 Room Air 07/25/19 15:10 Room Air 07/25/19 15:08 36.8 57 18 97/41 (59) 97 Room Air 07/25/19 15:08 97 Room Air Height & Weight Height: 5'4.00" Weight: 196lbs. 5.0oz. 89.649822ua; 28.00 BMI Method:Stated General Appearance: No Apparent Distress, Anxious, Chronically ill HEENT: Other (dry MM) Respiratory: Chest Non Tender, Lungs Clear, Normal Breath Sounds, No Accessory Muscle Use, No Respiratory Distress Cardiovascular: Regular Rate, Rhythm, No Edema, No Gallop, No JVD, No Murmur, Normal Peripheral Pulses Capillary Refill: Less Than 3 Seconds Extremity: Normal Capillary Refill, Normal Range of Motion, No Pedal Edema Neurologic/Psychiatric: Alert, Oriented x3, No Motor/Sensory Deficits, Normal Mood/Affect Skin: Cool, Damp, Mottled Results Lab Laboratory Tests 07/25/19 15:17 07/26/19 03:10 Assessment/Plan Assessment/Plan Severe dehydration with hypertension -IVF Pneumonia -Zosyn and Vanco -Duoneb -Currently on RA -influenza is neg EUGENE -IVF and monitor Chronic GIB -Repeat H&H monitor Hypokalemia -Replace DM Acute CP -Now resolved Hypotension - now resolved PAFIB -- currently sinus -Cardiology is consulted BRISEIDA IBRAHIM DO Jul 26, 2019 05:14
[2019-07-26 06:06] LABS: HEMOGLOBIN 7.4 G/DL (11.5-16.0)
[2019-07-26] MEDS: inSUlin ASPART (NovoLOG) 1 UNIT/0.01 ML (CHARGE PER UNIT) SC SCH ×4 (07:22→22:11)
[2019-07-26] MEDS ORDERED: PIPERACILLIN/TAZO 4.5 GM/NS 100 ML IV NR ×2 (07:30)
[2019-07-26] MEDS ORDERED: POTASSIUM CL 10MEQ/50ML IVPB 50 ML IV SCH (07:45)
[2019-07-26] MEDS ORDERED: KCL 20 MEQ TAB (K-DUR) PO ONE (08:30)
[2019-07-26] MEDS ORDERED: VANCOMYCIN 1,750 MG/NS 500 ML IVPB IV NR ×2 (08:43)
[2019-07-26] MEDS ORDERED: GLUC1CAP37 PO ×2 (08:46)
[2019-07-26] MEDS ORDERED: ACET-168 PO ×2 (08:46)
--- NOTE | 2019-07-26 08:52 | Diagnostic Imaging Report ---
Clinical indication: Patient with pneumonia. Exam: Portable chest x-ray upright view. Comparisons: Chest x-ray dated 07/25/2019. Findings: There is slight increased patchy consolidation left lung base which may represent atelectasis, but superimposed infiltrates may be present. There is cardiomegaly with mild pulmonary vascular congestion. There is no pleural effusion or pneumothorax. Again seen Lvftob-q-Dfry overlying the right chest. Stable postoperative changes to the chest with sternotomy wires and mediastinal clips. IMPRESSION: 1: There is slight progression of left basilar atelectasis, but superimposed infiltrate cannot be completely excluded. 2: Stable cardiomegaly with no significant pulmonary vascular congestion. 3: The remainder of this exam shows no significant interval change compared to the prior study of comparison. Dictated by: Dictated on workstation # [id number]
[2019-07-26] MEDS ORDERED: VANCOMYCIN INJECTION 1,500 MG in NS IV 500 ML 500 ML IV SCH (09:00)
[2019-07-26] MEDS ORDERED: ASPIRIN E.C. 81 MG (ECOTRIN) TAB PO SCH (09:00)
[2019-07-26] MEDS ORDERED: LACTULOSE SYRUP 10GM/15ML (ENULOSE) 30ML UDC PO ONE (09:00)
--- NOTE | 2019-07-26 09:00 | NUR ---
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 and took over patient care at this time. patient sitting in recliner, alert and orientated, no complaints at this time
--- NOTE | 2019-07-26 09:15 | NUR ---
VANCOMYCIN DOSING SCR 2.34; ADJ BW 70 KG; CRCL ~ 27; VANC 1 GM GIVEN IN ED 07/25 @ 1720 - ADDITIONAL BOLUS AND FOLLOWING DOSES NOT GIVEN - WILL REBOLUS VANC 20 MG/KG X 94 KG ~ 1750 MG THEN VANC 15 MG/KG ~ 1500 MG Q24H X 2 DOSES
--- NOTE | 2019-07-26 10:19 | NUR ---
PT TO ROOM 419 VIA W/C AT 0915 ACCOMPANIED BY THIS RN. REPORT GIVEN PRIOR TO TRANSFER. ALL PERSONAL BELONGINGS SENT WITH PT.
--- NOTE | 2019-07-26 11:06 | Progress Note - Hospitalist ---
Subjective HPI/CC On Admission Date Seen by Provider: Jul 26, 2019 Time Seen by Provider: 10:00 CC: Hypotension with dehydration HPI: This is a 64yoWF clinic patient of [facility] who is known to me from prior admits who is transfusion dependent from chronic GIB who presents to the ER with nausea and vomiting and no fluid intake for the past 2 days. CXR revealed questionable infiltrate so she was placed on aggressive broad spectrum abx but when I arrived she was in the midst of significant hypotension requiring aggressive IVF and noted ARF of 2.6 creatinine she appeared to be in hypovolemic shock. Patient has been placed in ICU for close monitoring. Subjective/Events-last exam Pt is doing much better. Will discharge early in the morning since her has a cardiac cath. Does not appear to be a pneumonia, only scarring on the chest X-ray and I did confer with Dr. Snow. Will not discharge on antibiotics. Creatinine improved at 2.3, that is a chronic issue. Review of Systems General: Fatigue Focused Exam Lactate Level 07/25/19 15:22: Lactic Acid Level 2.02*H 07/25/19 18:03: Lactic Acid Level 1.49 Objective Exam Vital Signs Vital Signs Date Time Temp Pulse Resp B/P (MAP) Pulse Ox O2 Delivery O2 Flow Rate FiO2 07/26/19 16:03 37.3 69 20 134/52 (79) 95 Room Air Capillary Refill : Less Than 3 Seconds General Appearance: No Apparent Distress, WD/WN, Chronically ill Respiratory: Chest Non Tender, Lungs Clear, Normal Breath Sounds, No Accessory Muscle Use, No Respiratory Distress Cardiovascular: Regular Rate, Rhythm, No Edema, No Gallop, No JVD, No Murmur, Normal Peripheral Pulses Neurologic/Psychiatric: Alert, Oriented x3, No Motor/Sensory Deficits, Normal M ood/Affect Results/Procedures Lab Laboratory Tests 07/26/19 03:10 07/26/19 05:55 Patient resulted labs reviewed. 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
[2019-07-26] MEDS ORDERED: TIZA2TAB4 PO ×2 (11:27)
[2019-07-26] MEDS ORDERED: METO10TA3 PO ×2 (11:48)
[2019-07-26] MEDS ORDERED: BUME1TAB8 PO ×2 (11:48)
[2019-07-26] MEDS ORDERED: METO5TAB6 PO ×2 (11:48)
[2019-07-26] MEDS ORDERED: PROM25TA14 PO ×2 (11:48)
--- NOTE | 2019-07-26 11:53 | NUR ---
SPOKE WITH THE PATIENT ABOUT HER MEDICATIONS. I HAD A LIST FAXED OVER FROM [facility] WELL WHAT HAS BEEN RECENTLY FILLED AT [facility]. [facility] FILLED: 07-13-19 TIZANIDINE 2MG TID PRN #90 07-05-19 BUMEX 2MG 2 TABS BID #60 (STATES SHE TAKES 1 DAILY AND 1 PRN) 07-05-19 METOLAZONE 5MG TWICE WEEK IF CRYSTAL>195 (TAKES SUN, THURS, PRN WEIGHT) 06-30-19 LACTULOSE 15ML TID #1419 06-30-19 METOCLOPRAMIDE 10MG BID BEFORE MELAS #60 (STATES SHE USES PRN) 06-21-19 FOLIC ACID 1MG DAILY #30 06-21-19 NOVOLIN N 15 UNITS BID #10 (STATES SHE NOW USES SLIDING SCALE A WITH MEALS) 06-02-19 PROMETHAZINE 25MG 1/2 TAB Q12 HOURS PRN #30 05-17-19 MAGNESIUM 400MG BID #180 05-16-19 TRAMADOL 50MG TID PRN #84 04-20-19 OMEPRAZOLE 40MG BID #180 03-10-19 METOPROLOL TARTRATE 25MG 1/2 BID #60 09-09-18 LEVOTHYROXINE 175MCG DAILY #90 (STATES SHE TAKES EVERY OTHER DAY)ONE ON HOLD FROM 05-10-19 BUT WAS NEVER PICKED UP. ZOFRAN WAS ON HOLD FROM 05-14-18 BUT NEVER PICKED UP. I CALLED AND SPOKE WITH A NURSE AT DR. TORRES'S OFFICE. THEY DO NOT HAVE RECORD OF DISPENSING ANY MEDICATIONS THROUGH THE REPOSITORY RECENTLY. THE PATIENT SEEMS TO THINK SHE GETS SEVERAL MEDS THROUGH THAT ROUTE. THE PHARMACY HAS NEVER DISPENSED THE NOVOLOG FLEXPEN BUT PATIENT STATES SHE ONLY USES HER INSULIN WITH MEALS AND SHE USUALLY ONLY EATS ONCE A DAY, SOMETIMES TWICE. SHE STATES SHE GOT THE FLEXPEN FROM THE REPOSITORY. I HAVE NOTED PAST DUE FILL DATES ON THE ORAL MEDICATION THAT IS PAST DUE. ALSO THE NURSE STATES THERE IS NO DOCUMENTATION ON THE NOVOLIN N BEING A SLIDING SCALE BUT THE PATIENT IS ADAMANT THAT IS WHAT THE TOLD HER TO DO. I HAVE PUT IT ON THE MED REC REPORTED BY THE PATIENT. SHE ALSO REPORTS SHE HAS NITROGLYCERIN ON HAND AT HOME IF NEEDED. SHE TAKES GLUCOSAMINE AND CHONDROITIN BID, TYLENOL 500MG PRN, AND ZYRTEC DAILY OTC.
--- NOTE | 2019-07-26 12:16 | NUR ---
"RD ASSESSMENT PMHx: COPD; CAD; VA; DM; HTN; GERD; GI bleed; diverticulosis; hypercholesterolemia PT INTERACTION: Pt was semi-awake and pleasant during consult for MST score. Pt states current appetite is good, but had been poor prior to admit. Note pt had been NPO til this morning, per chart review. Pt states following a low-CHO diet at home and has no issues with chewing/swallowing food. Pt states recent episodes of nausea/vomiting for the past 2days. Pt states no issues with constipation/diarrhea at this time, and that her last BM was 07/26. Note pt not currently on bowel regimen per chart review. Pt states 100# wt loss x1year. Note 40# wt gain x7w, per chart review. Upon visual exam, pt appears to be very well nourished with no visible signs of muscle/fat wasting. Given visual exam and wt hx, pt does not meet criteria for malnutrition per ASPEN guidelines. ABNORMAL NUTRITION-RELATED LAB VALUES LOW: K 3.2; Ca 8.0; Pro 5.9; alb 3.1 HIGH: glu 161 Est. kcal needs: 0914-7944 kcal | 15-18 kcal/kg Est. Pro needs: 75-94 g Pro | 0.8-1.0 g Pro/kg PES STATEMENT: Inadequate oral intake (NI-2.1) related to nausea | vomiting | loss of appetite as evidenced by pt interview INTERVENTION: Continue with current diet order of CHO 60g/m 1snack diet. Discontinue current supplementation order of Ensure Enlive with meals TID. Provides 350 kcal and 13 g Pro per serving. Pt may benefit from supplementation if PO intake declines. Will monitor intake and reassess. MONITOR/EVALUATE: PO Intake; Plan of Care; Hydration Status; Weight Status; Lab Values Tomy You, MS, RD, LD"
--- NOTE | 2019-07-26 13:02 | Consultation-Cardiology ---
HPI-Cardiology Cardiology Consultation Date of Consultation 07/26/19 Date of Admission Time Seen by Provider: 12:58 Indication: chest pain HPI 64-year-old lady with history of paroxysmal atrial fibrillation, history of GI bleed requiring multiple blood transfusion, admitted with hypotension, noted to be hypokalemic, has been having nausea and vomiting with no fluid intake for ab out 2 days prior to admission. She was in acute renal failure, receiving IV fluid, this morning she is feeling better, still having some chills. She was started on empiric antibiotic. Reporting some chest pain in addition to the nausea and vomiting. Home Medications & Allergies Allergies: Coded Allergies: Hgueeyx-Kse-Zkk Reductase Inhibitor (Verified Allergy, Intermediate, GI UPSET, N/V, 11/06/17) cefadroxil (Unverified Allergy, Mild, 01/01/17) Sulfa (Sulfonamide Antibiotics) (Verified Allergy, Unknown, 06/18/18) Home Medication List Reviewed: Yes VLN-Npvdad-Vpuhvu Hx Patient Social History Marital Status: Employed/Student: retired Alcohol Use: Denies Use Recreational Drug Use: No Smoking Status: Former Smoker Type Used: Cigarettes 2nd Hand Smoke Exposure: No Recent Foreign Travel: No (N) Recent Infectious Disease Expo: No Recent Hopitalizations: Yes Immunizations Up To Date Tetanus Booster (TDap): Unknown Date of Pneumonia Vaccine: May 16, 2019 Date of Influenza Vaccine: Apr 15, 2019 Past Medical History Discussed below Family Medical History Significant Family History: Hypertension, Stroke, Other Conditions/Hx Family History: Arthritis G8 BROTHER Completed stroke 19 MOTHER FH: anemia 19 MOTHER FH: lupus G8 SISTER FH: throat cancer 19 FATHER Hypertension G8 SISTER Myocardial infarction 19 MOTHER Thyroid disease 19 MOTHER G8 SISTER Review of Systems-General Review of Systems Constitutional: see HPI, malaise, weakness EENTM: see HPI Respiratory: see HPI; No cough, No dyspnea on exertion, No hemoptysis, No orthopnea, No phlegm, No short of breath, No stridor, No wheezing, No other Cardiovascular: see HPI, chest pain; No edema, No Hx of Intervention, No palpitations, No syncope, No vascular heart diseas, No other Gastrointestinal: see HPI, loss of appetite, nausea Genitourinary: see HPI Musculoskeletal: see HPI Psychiatric/Neurological: See HPI, Anxiety Reviewed Test Results Reviewed Test Results Lab Laboratory Tests Test 07/25/19 15:13 07/25/19 15:17 07/25/19 15:22 07/25/19 18:03 Range/Units Glucometer 187 H 70-110 MG/DL White Blood Count 6.0 4.3-11.0 10^3/uL Red Blood Count 2.98 L 4.35-5.85 10^6/uL Hemoglobin 9.2 L 11.5-16.0 G/DL Hematocrit 28 L 35-52 % Mean Corpuscular Volume 95 80-99 FL Mean Corpuscular Hemoglobin 31 25-34 PG Mean Corpuscular Hemoglobin Concent 33 32-36 G/DL Red Cell Distribution Width 15.3 H 10.0-14.5 % Platelet Count 213 130-400 10^3/uL Mean Platelet Volume 10.3 7.4-10.4 FL Neutrophils (%) (Auto) 65 42-75 % Lymphocytes (%) (Auto) 18 12-44 % Monocytes (%) (Auto) 10 0-12 % Eosinophils (%) (Auto) 7 0-10 % Basophils (%) (Auto) 1 0-10 % Neutrophils # (Auto) 3.9 1.8-7.8 X 10^3 Lymphocytes # (Auto) 1.1 1.0-4.0 X 10^3 Monocytes # (Auto) 0.6 0.0-1.0 X 10^3 Eosinophils # (Auto) 0.4 H 0.0-0.3 10^3/uL Basophils # (Auto) 0.0 0.0-0.1 10^3/uL Prothrombin Time 14.2 12.2-14.7 SEC INR Comment 1.1 0.8-1.4 Activated Partial Thromboplast Time 27 24-35 SEC Sodium Level 140 135-145 MMOL/L Potassium Level 3.3 L 3.6-5.0 MMOL/L Chloride Level 99 98-107 MMOL/L Carbon Dioxide Level 31 21-32 MMOL/L Anion Gap 10 5-14 MMOL/L Blood Urea Nitrogen 38 H 7-18 MG/DL Creatinine 2.65 H 0.60-1.30 MG/DL Estimat Glomerular Filtration Rate 18 BUN/Creatinine Ratio 14 Glucose Level 174 H 70-105 MG/DL Calcium Level 9.6 8.5-10.1 MG/DL Corrected Calcium 9.8 8.5-10.1 MG/DL Magnesium Level 2.4 1.6-2.4 MG/DL Total Bilirubin 0.6 0.1-1.0 MG/DL Aspartate Amino Transf (AST/SGOT) 21 5-34 U/L Alanine Aminotransferase (ALT/SGPT) 13 0-55 U/L Alkaline Phosphatase 71 40-136 U/L Ammonia 84 H 11-32 UMOL/L Total Creatine Kinase 41 29-168 U/L Creatine Kinase MB 0.6 <6.6 NG/ML Myoglobin 72.4 10.0-92.0 NG/ML Troponin I < 0.028 <0.028 NG/ML B-Type Natriuretic Peptide 199.5 H <100.0 PG/ML Total Protein 7.2 6.4-8.2 GM/DL Albumin 3.8 3.2-4.5 GM/DL Amylase Level 64 25-125 U/L Lipase 39 8-78 U/L Free Thyroxine 0.89 0.70-1.48 NG/DL TSH [place] Testing 15.88 H 0.35-4.94 UIU/ML Acetaminophen Level < 10 L 10-30 UG/ML Serum Alcohol < 10 <10 MG/DL Lactic Acid Level 2.02 *H 1.49 0.50-2.00 MMOL/L Test 07/25/19 18:20 07/26/19 03:10 07/26/19 05:55 07/26/19 10:02 Range/Units Urine Color YELLOW Urine Clarity CLEAR Urine pH 6.0 5-9 Urine Specific [place] 1.015 L 1.016-1.022 Urine Protein NEGATIVE NEGATIVE Urine Glucose (UA) NEGATIVE NEGATIVE Urine Ketones NEGATIVE NEGATIVE Urine Nitrite NEGATIVE NEGATIVE Urine Bilirubin NEGATIVE NEGATIVE Urine Urobilinogen 0.2 < = 1.0 MG/DL Urine Leukocyte Esterase NEGATIVE NEGATIVE Urine RBC (Auto) NEGATIVE NEGATIVE Urine RBC NONE /HPF Urine WBC 2-5 /HPF Urine Squamous Epithelial Cells 10-25 H /HPF Urine Crystals NONE /LPF Urine Bacteria MODERATE H /HPF Urine Casts NONE /LPF Urine Mucus NEGATIVE /LPF Urine Culture Indicated NO Urine Opiates Screen NEGATIVE NEGATIVE Urine Oxycodone Screen NEGATIVE NEGATIVE Urine Methadone Screen NEGATIVE NEGATIVE Urine Propoxyphene Screen NEGATIVE NEGATIVE Urine Barbiturates Screen NEGATIVE NEGATIVE Ur Tricyclic Antidepressants Screen NEGATIVE NEGATIVE Urine Phencyclidine Screen NEGATIVE NEGATIVE Urine Amphetamines Screen NEGATIVE NEGATIVE Urine Methamphetamines Screen NEGATIVE NEGATIVE Urine Benzodiazepines Screen NEGATIVE NEGATIVE Urine Cocaine Screen NEGATIVE NEGATIVE Urine Cannabinoids Screen NEGATIVE NEGATIVE White Blood Count 5.3 4.3-11.0 10^3/uL Red Blood Count 2.45 L 4.35-5.85 10^6/uL Hemoglobin 7.5 L 7.4 L 11.5-16.0 G/DL Hematocrit 23 L 23 L 35-52 % Mean Corpuscular Volume 95 80-99 FL Mean Corpuscular Hemoglobin 31 25-34 PG Mean Corpuscular Hemoglobin Concent 32 32-36 G/DL Red Cell Distribution Width 15.3 H 10.0-14.5 % Platelet Count 147 130-400 10^3/uL Mean Platelet Volume 9.9 7.4-10.4 FL Neutrophils (%) (Auto) 65 42-75 % Lymphocytes (%) (Auto) 18 12-44 % Monocytes (%) (Auto) 10 0-12 % Eosinophils (%) (Auto) 7 0-10 % Basophils (%) (Auto) 1 0-10 % Neutrophils # (Auto) 3.5 1.8-7.8 X 10^3 Lymphocytes # (Auto) 0.9 L 1.0-4.0 X 10^3 Monocytes # (Auto) 0.5 0.0-1.0 X 10^3 Eosinophils # (Auto) 0.4 H 0.0-0.3 10^3/uL Basophils # (Auto) 0.0 0.0-0.1 10^3/uL Sodium Level 138 135-145 MMOL/L Potassium Level 3.2 L 3.6-5.0 MMOL/L Chloride Level 104 98-107 MMOL/L Carbon Dioxide Level 25 21-32 MMOL/L Anion Gap 9 5-14 MMOL/L Blood Urea Nitrogen 34 H 7-18 MG/DL Creatinine 2.34 H 0.60-1.30 MG/DL Estimat Glomerular Filtration Rate 21 BUN/Creatinine Ratio 15 Glucose Level 161 H 70-105 MG/DL Calcium Level 8.0 L 8.5-10.1 MG/DL Corrected Calcium 8.7 8.5-10.1 MG/DL Phosphorus Level 2.5 2.3-4.7 MG/DL Magnesium Level 2.1 1.6-2.4 MG/DL Total Bilirubin 0.5 0.1-1.0 MG/DL Direct Bilirubin 0.2 0.0-0.3 MG/DL Indirect Bilirubin 0.3 MG/DL Aspartate Amino Transf (AST/SGOT) 16 5-34 U/L Alanine Aminotransferase (ALT/SGPT) 13 0-55 U/L Alkaline Phosphatase 54 40-136 U/L Ammonia 94 H 11-32 UMOL/L Total Protein 5.9 L 6.4-8.2 GM/DL Albumin 3.1 L 3.2-4.5 GM/DL Glucometer 139 H 70-110 MG/DL Physical Exam Physical Exam Vital Signs Vital Signs - First Documented 07/25/19 15:08 Temp 36.8 Pulse 57 Resp 18 B/P (MAP) 97/41 (59) Pulse Ox 97 O2 Delivery Room Air Capillary Refill : Less Than 3 Seconds Height, Weight, BMI Height: 5'4.00" Weight: 196lbs. 5.0oz. 89.863828xc; 35.81 BMI Method:Stated General Appearance: No Apparent Distress, Anxious, Chronically ill HEENT: Other (dry MM) Respiratory: Chest Non Tender, Lungs Clear, Normal Breath Sounds, No Accessory Muscle Use, No Respiratory Distress Cardiovascular: Regular Rate, Rhythm, No Edema, No Gallop, No JVD, No Murmur, Normal Peripheral Pulses Gastrointestinal: Soft, Tenderness (MILD EPIGASTRIC TENDERNESS) Extremity: Normal Capillary Refill, Normal Range of Motion, No Pedal Edema Neurologic/Psychiatric: Alert, Oriented x3, No Motor/Sensory Deficits, Normal Mood/Affect Skin: Cool, Damp, Mottled A/P-Cardiology Admission Diagnosis Hypotension Acute renal failure Coronary artery disease Anemia Assessment/Plan Hypotension and hypovolemia with acute renal failure, improving and receiving IV fluid Coronary artery disease, history of CABG 4 with Maze procedure and ligation of the left atrial appendage done in February 2018. Unable to tolerate aspirin or any antiplatelet medication due to recurrent GI bleed. Continue to monitor Chest pain, nonspecific etiology, associated with nausea and vomiting and poor oral intake. Feeling better at this time. Continue to monitor Generalized weakness and loss of energy. Managed by primary care physician Anemia, history of recurrent GI bleed, has been followed by Dr. Haywood. Continue to monitor History of paroxysmal atrial fibrillation, unable to tolerate oral anticoagulation due to recurrent GI bleed. History of hepatic cirrhosis, followed by primary care team History of esophageal paresis and gastritis. Followed and managed by primary care physician History of GAVE syndrome History of ascites secondary to hepatic cirrhosis Clinical Quality Measures AMI/AHF: ASA po Prior to arrival: No DVT/VTE Risk/Contraindication: Risk Factor Score Per Nursin RFS Level Per Nursing on Admit: 4+=Very High AYSE DODSON MD Jul 26, 2019 13:02
[2019-07-26] MEDS: PIPERACILLIN/TAZOBACTAM (BULK) 4.5 GM in NS (IVPB) 100 ML IV SCH ×2 (15:02→22:12)
[2019-07-26] MEDS ORDERED: METOCLOPRAMIDE 10 MG (REGLAN) TAB PO PRN (20:45)
[2019-07-26] MEDS ORDERED: PROMETHAZINE 25 MG (PHENERGAN) TAB PO PRN (20:45)
[2019-07-26] MEDS ORDERED: NON-FORMULARY MEDICATION 1 EA EA (Levothyroxine Sodium 175 MCG) PO SCH (20:45)
[2019-07-26] MEDS ORDERED: NITROGLYCERIN 0.4 MG SL TABS BTL 25'S SL PRN (20:45)
[2019-07-26] MEDS ORDERED: ACETAMINOPHEN 500 MG TAB (TYLENOL) PO PRN (20:45)
[2019-07-26] MEDS ORDERED: NON-FORMULARY MEDICATION 1 EA EA (Omeprazole 40 MG) PO SCH (21:00)
[2019-07-26] MEDS ORDERED: LEVOTHYROXINE 75 MCG (LEVOTHROID) TABLET ONE (21:47)
[2019-07-26] MEDS ORDERED: LEVOTHYROXINE 100 MCG (LEVOTHROID) TAB ONE (21:47)
[2019-07-26] MEDS: LACTULOSE SYRUP 10GM/15ML (ENULOSE) 30ML UDC PO SCH (22:10)
[2019-07-26] MEDS: MAGNESIUM OXIDE (MAG-OX)400 MG TAB PO SCH (22:10)
[2019-07-26] MEDS: meTOprolol TARTRATE 25 MG (LOPRESSOR) TABLET PO SCH (22:12)
[2019-07-27] VITALS (9 sets, daily range): BP systolic 115–148; BP diastolic 58–68
[2019-07-27] MEDS: NS IV 1000 ML 1,000 ML IV SCH ×6 (03:04→23:12)
[2019-07-27 05:18] LABS: BASOPHILS % (AUTO) 1 % (0-10); EOSINOPHILS # (AUTO) 0.3 10^3/uL (0.0-0.3); EOSINOPHILS % (AUTO) 8 % (0-10); HEMATOCRIT 24 % (35-52); HEMOGLOBIN 7.5 G/DL (11.5-16.0); LYMPHOCYTES # (AUTO) 1.1 X 10^3 (1.0-4.0); LYMPHOCYTES % (AUTO) 27 % (12-44); MEAN CORPUSCULAR HGB CONC 31 G/DL (32-36); MEAN CORPUSCULAR VOLUME 97 FL (80-99); MONOCYTES # (AUTO) 0.4 X 10^3 (0.0-1.0); MONOCYTES % (AUTO) 10 % (0-12); NEUTROPHILS # (AUTO) 2.2 X 10^3 (1.8-7.8); NEUTROPHILS % (AUTO) 55 % (42-75); PLATELET COUNT 141 10^3/uL (130-400); RED CELL DISTRIBUTION WIDTH 15.6 % (10.0-14.5); WHITE BLOOD COUNT 4.1 10^3/uL (4.3-11.0)
[2019-07-27 05:22] LABS: MEAN CORPUSCULAR HEMOGLOBIN 30 PG (25-34)
[2019-07-27 05:35] LABS: ALBUMIN 3.2 GM/DL (3.2-4.5); BILIRUBIN,TOTAL 0.4 MG/DL (0.1-1.0); CALCIUM 8.1 MG/DL (8.5-10.1); CREATININE SERUM 2.33 MG/DL (0.60-1.30); POTASSIUM 4.3 MMOL/L (3.6-5.0)
[2019-07-27] MEDS ORDERED: NON-FORMULARY MEDICATION 1 EA EA (Insulin Aspart (Novolog Flexpen) 8 UNITS) SQ SCH (06:00)
[2019-07-27] MEDS: inSUlin ASPART (NovoLOG) 1 UNIT/0.01 ML (CHARGE PER UNIT) SC SCH ×4 (06:11→21:16)
[2019-07-27] MEDS: PIPERACILLIN/TAZOBACTAM (BULK) 4.5 GM in NS (IVPB) 100 ML IV SCH (06:15)
--- NOTE | 2019-07-27 08:00 | NUR ---
patient verbalized this AM that she did not feel comfortable going home today due to felling like she needed blood. discharge orders were DCD per MD order and Dr elizondo was consulted by phone call and Text.
[2019-07-27] MEDS: LORATADINE (CLARITIN) 10 MG TAB PO SCH (08:49)
[2019-07-27] MEDS: MAGNESIUM OXIDE (MAG-OX)400 MG TAB PO SCH ×2 (08:49→21:13)
[2019-07-27] MEDS: LACTULOSE SYRUP 10GM/15ML (ENULOSE) 30ML UDC PO SCH ×4 (08:49→21:12)
[2019-07-27] MEDS: PANTOPRAZOLE 40 MG (PROTONIX) TAB PO SCH ×2 (08:49→21:14)
[2019-07-27] MEDS: FOLIC ACID 1 MG TAB PO SCH (08:49)
[2019-07-27] MEDS: meTOprolol TARTRATE 25 MG (LOPRESSOR) TABLET PO SCH ×2 (08:50→21:13)
[2019-07-27] MEDS ORDERED: VANCOMYCIN 1500 MG/NS 500 ML IVPB IV SCH ×2 (09:00)
--- NOTE | 2019-07-27 09:50 | NUR ---
patient off floor at this time with daughter. patient went to heart center to be with for out patient heart cath. cardiac doctor present during time patient left and primary care doctor is aware patient is off floor and gave the okay
--- NOTE | 2019-07-27 10:02 | Cardiology Progress Note ---
Subjective Date Seen by Provider: Jul 27, 2019 Time Seen by Provider: 10:00 Subjective/Events-last exam Patient sitting up at bedside, c/o generalized weakness and gait unsteadyness. Denies any further episode of chest pain. Review of Systems General: No Chills, No Night Sweats, No Fatigue, No Malaise, No Appetite, No Other HEENT: No Head Aches, No Visual Changes, No Eye Pain, No Ear Pain, No Dysphasia, No Sinus Congestion, No Post Nasal Drip, No Sore Throat, No Other Pulmonary: No Dyspnea, No Cough, No Pleuritic Chest Pain, No Other Cardiovascular: No: Chest Pain, Palpitations, Orthopnea, Paroxysmal Noc. Dyspnea, Edema, Lt Headedness, Other Focused Exam Lactate Level 07/25/19 15:22: Lactic Acid Level 2.02*H 07/25/19 18:03: Lactic Acid Level 1.49 Objective-Cardiology Exam Last Set of Vital Signs Vital Signs 07/27/19 07/27/19 07/27/19 08:00 12:00 13:00 Temp 37.4 Pulse 68 Resp 20 B/P (MAP) 115/65 (82) Pulse Ox 96 O2 Delivery Room Air Capillary Refill : Less Than 3 Seconds I&O Intake and Output 07/27/19 00:00 Intake Total 3377.5 ml Output Total 625 ml Balance 2752.5 ml Intake Oral 1860 ml IV Total 1517.5 ml Output Urine Total 625 ml # Voids 5 General: Alert, Oriented X3, Cooperative HEENT: Atraumatic, PERRLA Neck: Supple, No JVD, No Thyromegaly Lungs: Clear to Auscultation, Normal Air Movement Heart: Regular Rate, Normal S1, Normal S2, No Murmurs Abdomen: Normal Bowel Sounds, Soft, No Tenderness, No Hepatosplenomegaly, No Masses Extremities: No Clubbing, No Cyanosis, Normal Pulses, No Tenderness/Swelling, Other (trace edema BLE) Skin: No Rashes, No Significant Lesion Neuro: Cranial Nerves 3-12 NL Psych/Mental Status: Mental Status NL, Mood NL Results Lab Laboratory Tests 07/27/19 05:03 A/P-Cardiology Admission Diagnosis Hypotension Acute renal failure Coronary artery disease Anemia Assessment/Plan Hypotension and hypovolemia with acute renal failure, improving and receiving IV fluid Coronary artery disease, history of CABG 4 with Maze procedure and ligation of the left atrial appendage done in February 2018. Unable to tolerate aspirin or any antiplatelet medication due to recurrent GI bleed. I will discontinue ASA. Continue to monitor Chest pain, nonspecific etiology, associated with nausea and vomiting and poor oral intake. Feeling better at this time. Continue to monitor Generalized weakness and loss of energy. Managed by primary care physician Anemia, history of recurrent GI bleed, has been followed by Dr. Haywood. Continue to monitor History of paroxysmal atrial fibrillation, unable to tolerate oral anticoagulation due to recurrent GI bleed. History of hepatic cirrhosis, followed by primary care team History of esophageal paresis and gastritis. Followed and managed by primary care physician History of GAVE syndrome History of ascites secondary to hepatic cirrhosis Patient was seen and evaluated with Ariane, examination performed, management plan was discussed, agree with the current scribed note, I made few changes to the note using Italic font Clinically better, feeling better Anemia is worse today Cardiac status is stable. Continue to monitor heart rate and blood pressure Clinical Quality Measures AMI/AHF: ASA po Prior to arrival: No DVT/VTE Risk/Contraindication: Risk Factor Score Per Nursin RFS Level Per Nursing on Admit: 4+=Very High ARIANE WINCHESTER Jul 27, 2019 10:02 AYSE DODSON MD Jul 27, 2019 14:44
--- NOTE | 2019-07-27 11:21 | Progress Note - Hospitalist ---
Subjective HPI/CC On Admission Date Seen by Provider: Jul 27, 2019 Time Seen by Provider: 12:00 CC: Hypotension with dehydration HPI: This is a 64yoWF clinic patient of [facility] who is known to me from prior admits who is transfusion dependent from chronic GIB who presents to the ER with nausea and vomiting and no fluid intake for the past 2 days. CXR revealed questionable infiltrate so she was placed on aggressive broad spectrum abx but when I arrived she was in the midst of significant hypotension requiring aggressive IVF and noted ARF of 2.6 creatinine she appeared to be in hypovolemic shock. Patient has been placed in ICU for close monitoring. Subjective/Events-last exam Pt doing pretty well today. Denies any other significant issues. Wants to stay today because she feels like she needs a blood transfusion. Pt out of the room with her who is having a cardiac catheterization. Labs remain stable. Review of Systems General: Fatigue Pulmonary: Dyspnea Focused Exam Lactate Level 07/25/19 15:22: Lactic Acid Level 2.02*H 07/25/19 18:03: Lactic Acid Level 1.49 Objective Exam Vital Signs Vital Signs Date Time Temp Pulse Resp B/P (MAP) Pulse Ox O2 Delivery O2 Flow Rate FiO2 07/27/19 19:00 80 07/27/19 18:00 37.0 20 143/65 97 Room Air Capillary Refill : Less Than 3 Seconds General Appearance: No Apparent Distress, WD/WN, Chronically ill Respiratory: Lungs Clear Cardiovascular: Regular Rate, Rhythm Results/Procedures Lab Laboratory Tests 07/27/19 05:03 Patient resulted labs reviewed. Assessment/Plan Assessment and Plan Assess & Plan/Chief Complaint Assessment: Hypovolemic shock Infiltrate on CXR questionable chronicity likely scarring from chest tubes placements placed on abx empirically ARF Anemia transfusion dependency from chronic GIB DM HTN Plan: IVF IV abx empirically but will not require abx at DC Consult Dr Emir TURK tomorrow morning? 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
--- NOTE | 2019-07-27 13:10 | NUR ---
called patients daughter to check on patient at this time. daughter stated patient was on the 5th floor in her husbands room and would be back on the floor in the next 30 mins
--- NOTE | 2019-07-27 13:20 | Pulmonary Progress Note ---
Subjective Time Seen by a Provider: 13:20 Subjective/Events-last exam PT is doing better Sepsis Event Evaluation Height, Weight, BMI Height: 5'4.00" Weight: 196lbs. 5.0oz. [id number]; 35.81 BMI Method:Stated Focused Exam Lactate Level 07/25/19 15:22: Lactic Acid Level 2.02*H 07/25/19 18:03: Lactic Acid Level 1.49 Exam Exam Vital Signs Date Time Temp Pulse Resp B/P (MAP) Pulse Ox O2 Delivery O2 Flow Rate FiO2 07/27/19 13:00 68 07/27/19 09:00 Room Air 07/27/19 08:00 37.4 72 20 115/65 (82) 96 Room Air 07/27/19 06:45 83 07/27/19 04:00 37.2 71 18 118/58 (78) 92 Room Air 07/27/19 01:18 75 07/27/19 00:03 37.5 78 20 118/62 (80) 95 Room Air 07/26/19 21:00 Room Air 07/26/19 20:51 37.5 74 16 109/53 (71) 95 Room Air 07/26/19 20:50 80 07/26/19 16:03 37.3 69 20 134/52 (79) 95 Room Air I & O 07/27/19 07:00 Intake Total 2357.5 ml Balance 2357.5 ml Height & Weight Height: 5'4.00" Weight: 196lbs. 5.0oz. 89.152024ih; 35.81 BMI Method:Stated General Appearance: No Apparent Distress, WD/WN, Chronically ill HEENT: Other (dry MM) Respiratory: Chest Non Tender, Lungs Clear, Normal Breath Sounds, No Accessory Muscle Use, No Respiratory Distress Cardiovascular: Regular Rate, Rhythm, No Edema, No Gallop, No JVD, No Murmur, Normal Peripheral Pulses Capillary Refill: Less Than 3 Seconds Extremity: Normal Capillary Refill, Normal Range of Motion, No Pedal Edema Neurologic/Psychiatric: Alert, Oriented x3, No Motor/Sensory Deficits, Normal Mood/Affect Skin: Cool, Damp, Mottled Results Lab Laboratory Tests 07/25/19 15:17 07/26/19 03:10 07/26/19 05:55 2/12/20 05:03 Assessment/Plan Assessment/Plan Pneumonia -Zosyn and Vanco -Duoneb -Currently on RA -influenza is neg EUGENE -IVF and monitor Chronic GIB -Repeat H&H monitor Hypokalemia -Replace DM Acute CP -Now resolved Hypotension - now resolved PAFIB -- currently sinus -Cardiology is consulted BRISEIDA IBRAHIM DO Jul 27, 2019 13:20
[2019-07-27] MEDS ORDERED: NS IV 500 ML 500 ML IV SCH (14:45)
--- NOTE | 2019-07-27 14:45 | NUR ---
patient back on floor at this time. doctor mikhail here to see patient. doctor stated he wants her to receive one unit of blood and then she is safe to DC from his stand point
[2019-07-27] MEDS: inSUlin ASPART (NovoLOG) 1 UNIT/0.01 ML (CHARGE PER UNIT) SQ SCH ×2 (14:57→16:58)
--- NOTE | 2019-07-27 19:16 | CONSULTATION REPORT ---
DATE OF SERVICE: 07/27/2019 The patient is admitted to room 419. PHYSICIAN REQUESTING CONSULTATION: Sarah Morrell DO IMPRESSION: 1. A 64-year-old female admitted to the hospital with mental status changes. Initial evaluation showing significant dehydration and hypotension, status post aggressive fluid resuscitation. 2. Acute on chronic renal failure. 3. Anemia secondary to intermittent GI bleeding. 4. History of cirrhosis and probable GAVE syndrome. 5. Diabetes mellitus with suboptimal control. RECOMMENDATIONS: 1. Transfuse PRBCs as needed to maintain hemoglobin more than or equal to 8 grams per deciliter because of her symptoms and cardiac status. 2. Avoid all types of anticoagulation including antiplatelet agents because of repeated bleeding. 3. Once she is stable from medical standpoint, discharge the patient home. 4. Follow up at the [facility] next week for lab work and scheduled a parenteral iron therapy. 5. Overall, prognosis guarded. BRIEF HISTORY: The patient is a 64-year-old female with a history of cirrhosis of the liver and recurrent GI bleeding requiring packed red blood cell therapy as well as a parenteral iron therapy multiple times in the past. She presented to the [facility] on Thursday with extreme confusion and lethargy and was sent to the emergency room. She was found to be significantly dehydrated and aggressively resuscitated. There is questionable infiltrate in the chest x-ray and she was started on broad spectrum antibiotic therapy also. Because of the anemia, hematology consultation was requested for concurrent care. The patient mentioned that she is feeling better today, but is still extremely weak. She had a bowel movement today with a mild hematochezia. This has been a chronic problem for her. PAST MEDICAL HISTORY: Significant for iron deficiency anemia with gastric antral vascular ectasia syndrome requiring parenteral iron therapy and intermittent transfusion. Workup also showed evidence of cirrhosis with portal hypertension. She has been on transfusion to maintain hemoglobin at 8 grams per deciliter or more because of her age, symptoms, and cardiac history. She has diabetes mellitus, which is under poor control. History of hypothyroidism and on replacement. Coronary artery disease and IL requiring stent placement. Atrial fibrillation with previous anticoagulation, which has been discontinued because of bleeding. She could not tolerate even aspirin therapy. Also has history of hypercholesterolemia and osteoarthritis involving the major joints. PAST SURGICAL HISTORY: Include left ankle reconstruction in 1996, left knee arthroscopic surgery, several EGDs, tubal ligation, bilateral reduction mammoplasty, cardiac catheterization with stent placement and CABG. SOCIAL HISTORY: The patient is and lives in [place], [place]. She has two children, a son who lives in [place] and a daughter who lives in [facility]. 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 A [id number] history of tobacco use, quit more than 30 years ago. Remote history of alcohol use, which was mostly socially. No history of recreational drug use. FAMILY HISTORY: Significant for her father was diagnosed with throat cancer at the age of 59 years. Paternal grandfather had history of colon cancer. Paternal grandmother with colon cancer in her 50s. The patient's sister was diagnosed with breast cancer at the age of 40 years. Brother had skin cancers. Maternal uncle with lung cancer and maternal aunt with an unknown malignancy. No other malignancies in the family that the patient knows of. PHYSICAL EXAMINATION: GENERAL: Today showed elderly female, obese, awake and oriented today and in mild distress because of fatigue. VITAL SIGNS: Her temperature was 37.4, pulse rate of 72, respirations 20, blood pressure 115/65 with oxygen saturation of 96% on room air. HEENT: Normocephalic, extraocular muscles intact, conjunctivae pale, oral mucosa moist. NECK: Supple, with no JVD. No cervical, supraclavicular or axillary lymphadenopathy palpable. CHEST: Symmetrical. LUNGS: Fairly clear to auscultation without wheezes or rales. CARDIOVASCULAR: Regular in rate and rhythm. No murmurs or gallops heard. ABDOMEN: Obese, soft, nontender with no hepatosplenomegaly or other masses palpable. EXTREMITIES: Showed no edema. NEUROLOGIC: Grossly intact without focal motor deficits. LABORATORY DATA: CBC done today showed WBC 4.1, hemoglobin 7.5, MCV 97, platelet count 141,000 with neutrophil count 2.2 and lymphocyte count 1.1. Chemistry panel showed relatively normal electrolytes. BUN was 28, creatinine 2.33 with GFR of 21 mL per minute. Nonfasting glucose was 172. Liver function studies were within normal limits. Thank you for allowing me to participate in this patient's care. Job ID: [id number] DocumentID: [id number] Dictated Date: 07/27/2019 15:07:11 Manager Business Continuity Date: 07/27/2019 19:16:28 Dictated By: SHIREEN AGARWAL MD [facility]
[2019-07-28 01:40] VITALS: BP 117/71
[2019-07-28] MEDS: inSUlin ASPART (NovoLOG) 1 UNIT/0.01 ML (CHARGE PER UNIT) SQ SCH ×2 (06:07→11:17)
[2019-07-28] MEDS: inSUlin ASPART (NovoLOG) 1 UNIT/0.01 ML (CHARGE PER UNIT) SC SCH ×2 (06:07→11:04)
[2019-07-28 06:28] LABS: BASOPHILS % (AUTO) 1 % (0-10); EOSINOPHILS # (AUTO) 0.3 10^3/uL (0.0-0.3); EOSINOPHILS % (AUTO) 7 % (0-10); HEMATOCRIT 24 % (35-52); HEMOGLOBIN 7.6 G/DL (11.5-16.0); LYMPHOCYTES % (AUTO) 28 % (12-44); MEAN CORPUSCULAR HEMOGLOBIN 31 PG (25-34); MEAN CORPUSCULAR HGB CONC 32 G/DL (32-36); MEAN CORPUSCULAR VOLUME 97 FL (80-99); MEAN PLATELET VOLUME 10.1 FL (7.4-10.4); MONOCYTES # (AUTO) 0.4 X 10^3 (0.0-1.0); MONOCYTES % (AUTO) 12 % (0-12); NEUTROPHILS # (AUTO) 1.8 X 10^3 (1.8-7.8); NEUTROPHILS % (AUTO) 52 % (42-75); PLATELET COUNT 116 10^3/uL (130-400); RED CELL DISTRIBUTION WIDTH 15.1 % (10.0-14.5); WHITE BLOOD COUNT 3.4 10^3/uL (4.3-11.0)
[2019-07-28] MEDS ORDERED: LEVOTHYROXINE 100 MCG (LEVOTHROID) TAB PO SCH (06:30)
[2019-07-28] MEDS ORDERED: LEVOTHYROXINE 75 MCG (LEVOTHROID) TABLET PO SCH (06:30)
[2019-07-28 07:13] LABS: ALBUMIN 2.9 GM/DL (3.2-4.5); BILIRUBIN,TOTAL 0.4 MG/DL (0.1-1.0); CREATININE SERUM 1.8 MG/DL (0.60-1.30); POTASSIUM 4.3 MMOL/L (3.6-5.0); TOTAL PROTEIN 5.5 GM/DL (6.4-8.2)
[2019-07-28 07:45] VITALS: BP 131/60
[2019-07-28] MEDS: meTOprolol TARTRATE 25 MG (LOPRESSOR) TABLET PO SCH (08:19)
[2019-07-28] MEDS: FOLIC ACID 1 MG TAB PO SCH (08:19)
[2019-07-28] MEDS: PANTOPRAZOLE 40 MG (PROTONIX) TAB PO SCH (08:19)
[2019-07-28] MEDS: LORATADINE (CLARITIN) 10 MG TAB PO SCH (08:19)
[2019-07-28] MEDS: MAGNESIUM OXIDE (MAG-OX)400 MG TAB PO SCH (08:19)
[2019-07-28] MEDS: LACTULOSE SYRUP 10GM/15ML (ENULOSE) 30ML UDC PO SCH (09:08)
[2019-07-28] MEDS ORDERED: NS IV 500 ML 500 ML IV SCH (09:30)
--- NOTE | 2019-07-28 09:59 | Cardiology Progress Note ---
Subjective Date Seen by Provider: Jul 28, 2019 Time Seen by Provider: 09:58 Subjective/Events-last exam Patient was seen at bedside, laying down comfortably, feeling better, still having mild cough Review of Systems General: No Chills, No Night Sweats; Fatigue; No Malaise, No Appetite, No Other HEENT: No Head Aches, No Visual Changes, No Eye Pain, No Ear Pain, No Dy sphasia, No Sinus Congestion, No Post Nasal Drip, No Sore Throat, No Other Pulmonary: Dyspnea; No Cough, No Pleuritic Chest Pain, No Other Cardiovascular: No: Chest Pain, Palpitations, Orthopnea, Paroxysmal Noc. Dyspnea, Edema, Lt Headedness, Other Focused Exam Lactate Level 07/25/19 15:22: Lactic Acid Level 2.02*H 07/25/19 18:03: Lactic Acid Level 1.49 Objective-Cardiology Exam Last Set of Vital Signs Vital Signs 07/28/19 07/28/19 07:45 09:03 Temp 36.8 Pulse 69 Resp 18 B/P (MAP) 131/60 (83) Pulse Ox 99 O2 Delivery Room Air Capillary Refill : Less Than 3 Seconds I&O Intake and Output 07/28/19 00:00 Intake Total 1870 ml Balance 1870 ml Intake Oral 1600 ml Other 270 ml # Voids 5 # Bowel Movements 2 General: Alert, Oriented X3, Cooperative HEENT: Atraumatic, PERRLA Neck: Supple, No JVD, No Thyromegaly Lungs: Clear to Auscultation, Normal Air Movement Heart: Regular Rate, Normal S1, Normal S2, No Murmurs Abdomen: Normal Bowel Sounds, Soft, No Tenderness, No Hepatosplenomegaly, No Masses Extremities: No Clubbing, No Cyanosis, Normal Pulses, No Tenderness/Swelling, Other (trace edema BLE) Skin: No Rashes, No Significant Lesion Neuro: Cranial Nerves 3-12 NL Psych/Mental Status: Mental Status NL, Mood NL Results Lab Laboratory Tests 07/28/19 06:00 A/P-Cardiology Admission Diagnosis Hypotension Acute renal failure Coronary artery disease Anemia Assessment/Plan Hypotension and hypovolemia with acute renal failure, improving, received IV fluids, continue to monitor, management per primary care physician Coronary artery disease, history of CABG 4 with Maze procedure and ligation of the left atrial appendage done in February 2018. Unable to tolerate aspirin or any antiplatelet medication due to recurrent GI bleed. Aspirin was discontinued. Continue to monitor Chest pain, nonspecific etiology, associated with nausea and vomiting and poor oral intake. Feeling better at this time. Continue to monitor Generalized weakness and loss of energy. Managed by primary care physician Anemia, history of recurrent GI bleed, has been followed by Dr. Haywood. Continue to monitor History of paroxysmal atrial fibrillation, unable to tolerate oral anticoagulation due to recurrent GI bleed. History of hepatic cirrhosis, followed by primary care team History of esophageal paresis and gastritis. Followed and managed by primary care physician History of GAVE syndrome History of ascites secondary to hepatic cirrhosis Clinical Quality Measures AMI/AHF: ASA po Prior to arrival: No DVT/VTE Risk/Contraindication: Risk Factor Score Per Nursin RFS Level Per Nursing on Admit: 4+=Very High AYSE DODSNO MD Jul 28, 2019 9:59 am
[2019-07-28 10:20] VITALS: BP 122/59
[2019-07-28] MEDS ORDERED: BUMETANIDE 1 MG (BUMEX) TAB PO PRN (10:45)
[2019-07-28 10:46] VITALS: BP 128/58
--- NOTE | 2019-07-28 11:11 | Discharge Summary ---
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 (3) Atrial fibrillation Status: Chronic (4) Hypothyroidism Status: Chronic (5) Coronary artery disease Status: Chronic (6) Hypertension Status: Chronic (7) Type 2 diabetes mellitus with hyperglycemia Status: Chronic (8) Transfusion-dependent anemia Status: Chronic (9) Chronic renal failure Status: Acute Hospital Course Date of Admission: Jul 25, 2019 at 19:00 Admission Diagnosis : Family Physician/Provider: Carla Wilson MD Date of Discharge: 07/28/19 Discharge Diagnosis: Hypovolumic shock, ARF, transfusion dependent anemia Hospital Course: Received one unit of blood yesterday and another unit today Hospital Course: Pt had an uneventful hospital course. She was admitted after hypovolemic shock, place in ICU, aggressive IV fluids, held diuretics. Pt placed on empiric antibiotics for possible infiltrate on the x ray but that was likely due to. multiple chest tubes in the past. Dr. Bonilla was consulted, underwent transfusion yesterday and day of DC and was ready for DC home. Labs and Pending Lab Test: Laboratory Tests 07/27/19 14:44: Glucometer 244H 07/27/19 16:16: Glucometer 248H 07/27/19 20:03: Glucometer 220H 07/28/19 05:37: Glucometer 234H 07/28/19 06:00: White Blood Count 3.4L, Red Blood Count 2.45L, Hemoglobin 7.6L, Hematocrit 24L, Mean Corpuscular Volume 97, Mean Corpuscular Hemoglobin 31, Mean Corpuscular Hemoglobin Concent 32, Red Cell Distribution Width 15.1H, Platelet Count 116L, Mean Platelet Volume 10.1, Neutrophils (%) (Auto) 52, Lymphocytes (%) (Auto) 28, Monocytes (%) (Auto) 12, Eosinophils (%) (Auto) 7, Basophils (%) (Auto) 1, Neutrophils # (Auto) 1.8, Lymphocytes # (Auto) 1.0, Monocytes # (Auto) 0.4, Eosinophils # (Auto) 0.3, Basophils # (Auto) 0.0, Sodium Level 138, Potassium Level 4.3, Chloride Level 110H, Carbon Dioxide Level 23, Anion Gap 5, Blood Urea Nitrogen 25H, Creatinine 1.80H, Estimat Glomerular Filtration Rate 29, BUN/Creat inine Ratio 14, Glucose Level 220H, Calcium Level 8.0L, Corrected Calcium 8.9, Total Bilirubin 0.4, Aspartate Amino Transf (AST/SGOT) 16, Alanine Aminotransferase (ALT/SGPT) 11, Alkaline Phosphatase 54, Total Protein 5.5L, Albumin 2.9L 07/28/19 10:43: Glucometer 168H Microbiology 07/25/19 MRSA Screen - Final, Complete MRSA not isolated 07/25/19 Blood Culture - Preliminary, Resulted No growth Home Meds Active Reported Promethazine Tablet (Promethazine HCl) 25 Mg Tablet 12.5 Mg PO Q12H PRN Metoclopramide HCl 10 Mg Tablet 10 Mg PO BIDAC PRN Metolazone 5 Mg Tablet 5 Mg PO SUTH PRN Bumetanide 1 Mg Tablet 1 Mg PO DAILY PRN MAY TAKE AN ADDITIONAL DOSE IF NEEDED Tizanidine HCl 2 Mg Tablet 2 Mg PO TID PRN Glucosamine & Chondroitin Cap (Glucosa Horne 2Kcl/Chondroitin Horne) 1 Each Capsule 1 Cap PO BID Acetaminophen Extra Strength (Acetaminophen) 500 Mg Tablet 500 Mg PO Q4H PRN Lactulose 10 Gm/15 Ml Solution 15 Ml PO TID Novolog Flexpen (Insulin Aspart) 300 Units/3 Ml Solution 8 Units SQ AC Bumetanide 1 Mg Tablet 1 Mg PO DAILY Metoprolol Tartrate 25 Mg Tablet 12.5 Mg PO BID LAST FILLED #60 03-10-19 Folic Acid 1 Mg Tablet 1 Mg PO DAILY Tramadol HCl 50 Mg Tablet 50 Mg PO TID PRN Magox 400 (Magnesium Oxide) 400 Mg Tablet 400 Mg PO BID Levothyroxine Sodium 175 Mcg Tablet 175 Mcg PO Q48H LAST FILL 09-08-2018 Nitrostat (Nitroglycerin) 0.4 Mg Tab.subl 0.4 Mg SL UD PRN Novolin N (Insulin NPH Human Isophane) 100 Unit/1 Ml Vial SQ AC SLIDING SCALE A Zyrtec (Cetirizine HCl) 10 Mg Tablet 10 Mg PO DAILY Omeprazole 40 Mg Capsule.dr 40 Mg PO BID Assessment/Pt Instructions [facility] 1 week Discharge Planning: <30 minutes discharge planning Discharge Instructions Discharge Diet: No Restrictions Activity as Tolerated: Yes Discharge Physical Examination Vital Signs Vital Signs Date Time Temp Pulse Resp B/P (MAP) Pulse Ox O2 Delivery O2 Flow Rate FiO2 07/28/19 10:46 37.1 70 128/58 07/28/19 10:20 18 Room Air 07/28/19 09:03 99 General Appearance: No Apparent Distress, WD/WN Respiratory: Lungs Clear Cardiovascular: Regular Rate, Rhythm Allergies: Coded Allergies: [id number]-[id number]-Hqo Reductase Inhibitor (Verified Allergy, Intermediate, GI UPSET, N/V, 11/06/17) cefadroxil (Unverified Allergy, Mild, 01/01/17) Sulfa (Sulfonamide Antibiotics) (Verified Allergy, Unknown, 06/18/18) Discharge Summary Date of Admission Jul 25, 2019 at 19:00 Date of Discharge Discharge Date: Jul 28, 2019 Admission Diagnosis Assessment: Hypovolemic shock Infiltrate on CXR questionable chronicity ARF Anemia transfusion dependency from chronic GIB DM HTN Plan: IVF Pressors IV abx empirically Discharge Diagnosis Assessment: Hypovolemic shock Infiltrate on CXR questionable chronicity likely scarring from chest tubes placements placed on abx empirically ARF Anemia transfusion dependency from chronic GIB DM HTN Plan: IVF IV abx empirically but will not require abx at DC Consult Dr Emir TURK tomorrow morning? 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
--- NOTE | 2019-07-28 12:17 | Pulmonary Progress Note ---
Subjective Time Seen by a Provider: 12:17 Sepsis Event Evaluation Height, Weight, BMI Height: 5'4.00" Weight: 196lbs. 5.0oz. 89.234830lo; 35.81 BMI Method:Stated Focused Exam Lactate Level 07/25/19 15:22: Lactic Acid Level 2.02*H 07/25/19 18:03: Lactic Acid Level 1.49 Exam Exam Vital Signs Date Time Temp Pulse Resp B/P (MAP) Pulse Ox O2 Delivery O2 Flow Rate FiO2 07/28/19 10:46 37.1 70 128/58 07/28/19 10:20 37.2 74 18 122/59 Room Air 07/28/19 09:03 99 Room Air 07/28/19 07:45 36.8 69 18 131/60 (83) 99 Room Air 07/28/19 01:40 37.5 80 18 117/71 (86) 94 Room Air 07/27/19 23:19 18 07/27/19 21:45 37.0 07/27/19 21:15 37.0 07/27/19 20:45 37.0 80 18 148/65 (92) 98 Room Air 07/27/19 19:50 37.0 78 20 148/68 Room Air 07/27/19 19:00 80 07/27/19 18:00 37.0 78 20 143/65 97 Room Air 07/27/19 17:43 36.8 76 20 138/64 97 Room Air 07/27/19 17:23 37.2 76 20 139/63 (88) 97 07/27/19 16:00 37.0 71 18 138/60 (86) 95 Room Air 07/27/19 13:00 68 I & O 07/28/19 07:00 Intake Total 2070 ml Balance 2070 ml Height & Weight Height: 5'4.00" Weight: 196lbs. 5.0oz. 89.252292re; 35.81 BMI Method:Stated General Appearance: No Apparent Distress, WD/WN, Chronically ill HEENT: Other (dry MM) Respiratory: Lungs Clear Cardiovascular: Regular Rate, Rhythm Capillary Refill: Less Than 3 Seconds Extremity: Normal Capillary Refill, Normal Range of Motion, No Pedal Edema Neurologic/Psychiatric: Alert, Oriented x3, No Motor/Sensory Deficits, Normal Mood/Affect Skin: Cool, Damp, Mottled Results Lab Laboratory Tests 07/27/19 05:03 07/28/19 06:00 Assessment/Plan Assessment/Plan Pneumonia -Zosyn and Vanco -Duoneb -Currently on RA -influenza is neg EUGENE -IVF and monitor Chronic GIB -Repeat H&H monitor DM Acute CP -Now resolved Hypotension - now resolved PAFIB -- currently sinus -Cardiology is consulted BRISEIDA IBRAHIM DO Jul 28, 2019 12:17
--- NOTE | 2019-07-28 12:57 | Pulmonary Progress Note ---
Subjective Time Seen by a Provider: 12:56 Subjective/Events-last exam PT is doing better No complications noted. Sepsis Event Evaluation Height, Weight, BMI Height: 5'4.00" Weight: 196lbs. 5.0oz. 89.687185bn; 35.81 BMI Method:Stated Focused Exam Lactate Level 07/25/19 15:22: Lactic Acid Level 2.02*H 07/25/19 18:03: Lactic Acid Level 1.49 Exam Exam Vital Signs Date Time Temp Pulse Resp B/P (MAP) Pulse Ox O2 Delivery O2 Flow Rate FiO2 07/28/19 10:46 37.1 70 128/58 07/28/19 10:20 37.2 74 18 122/59 Room Air 07/28/19 09:03 99 Room Air 07/28/19 07:45 36.8 69 18 131/60 (83) 99 Room Air 07/28/19 01:40 37.5 80 18 117/71 (86) 94 Room Air 07/27/19 23:19 18 07/27/19 21:45 37.0 07/27/19 21:15 37.0 07/27/19 20:45 37.0 80 18 148/65 (92) 98 Room Air 07/27/19 19:50 37.0 78 20 148/68 Room Air 07/27/19 19:00 80 07/27/19 18:00 37.0 78 20 143/65 97 Room Air 07/27/19 17:43 36.8 76 20 138/64 97 Room Air 07/27/19 17:23 37.2 76 20 139/63 (88) 97 07/27/19 16:00 37.0 71 18 138/60 (86) 95 Room Air 07/27/19 13:00 68 I & O 07/28/19 07:00 Intake Total 2070 ml Balance 2070 ml Height & Weight Height: 5'4.00" Weight: 196lbs. 5.0oz. 89.210928sl; 35.81 BMI Method:Stated General Appearance: No Apparent Distress, WD/WN, Chronically ill HEENT: Other (dry MM) Respiratory: Chest Non Tender, Lungs Clear, Normal Breath Sounds, No Accessory Muscle Use, No Respiratory Distress Cardiovascular: Regular Rate, Rhythm, No Edema, No Gallop, No JVD, No Murmur, Normal Peripheral Pulses Capillary Refill: Less Than 3 Seconds Extremity: Normal Capillary Refill, Normal Range of Motion, No Pedal Edema Neurologic/Psychiatric: Alert, Oriented x3, No Motor/Sensory Deficits, Normal Mood/Affect Skin: Cool, Damp, Mottled Results Lab Laboratory Tests 07/27/19 05:03 07/28/19 06:00 Assessment/Plan Assessment/Plan Pneumonia -Zosyn and Vanco -Duoneb -Currently on RA -influenza is neg EUGENE -IVF and monitor Chronic GIB monitor DM Acute CP -Now resolved Hypotension - now resolved PAFIB -- currently sinus -Cardiology is consulted I am going to sign off. Please call with any questions. BRISEIDA IBRAHIM DO Jul 28, 2019 12:57
[2019-07-28 13:05] VITALS: BP 160/74
[2019-07-29] MEDS ORDERED: BUMETANIDE 1 MG (BUMEX) TAB PO SCH (09:00)
--- NOTE | 2019-07-29 13:28 | Physician Query Clarification ---
PQ-Conflicting Diagnosis Admission/Discharge Admission Date: Jul 25, 2019 at 19:00 Discharge Date: Jul 28, 2019 at 13:33 The medical record reflects the following clinical scenario: History/Risk Factors: hypovolemic shock, acute renal failure, GAVE, HTN w/CKD Clinical Findings: There is slightly improved aeration of the left lung base with continued left basilar atelectasis or scarring. Superimposed infiltrate cannot be completely excluded. Treatment: IV Vancomycin, IV Pipercillin Question: Do you agree with the impression of the pneumonia per Dr. Snow. Please document a response in Progress Note or Discharge Summary. 1. Yes 2. No 3. Other, with explanation of clinical findings 4. Clinically undetermined, no explanation for clinical findings. PHYSICIAN RESPONSE Do you agree w/Consulting Dx?: Yes Please remember a lack of response to the above will prompt a phone page by CDI/Coding staff. In responding to this query, please exercise your independent professional judg ment. The purpose of this communication is to more accurately reflect the complexity of your patients condition. The fact that a question is asked does not imply that any particular answer is desired or expected. Thank you for your timely response to this clarification. Requestors name: Desmond THIS PHYSICIAN QUERY FORM IS A PERMANENT PART OF THE MEDICAL RECORD DESMOND RUVALCABA Jul 29, 2019 13:28 MICHELLE GARCIA DO Jul 29, 2019 15:21
--- NOTE | 2019-07-29 13:35 | Physician Query Clarification ---
PQ-Further Specificity Admission/Discharge Admission Date: Jul 25, 2019 at 19:00 Discharge Date: Jul 28, 2019 at 13:33 The medical record reflects the following clinical scenario: History/Risk Factors: hypovolemic shock, acute renal failure, GAVE, HTN w/ CKD, cirrhosis w/portal hypertension Clinical Findings: BP 97/41, Cr 2.6, skin cool, damp and mottled Treatment: Aggressive IVF, pressors Question: Can you further specify the underlying cause of the hypovolemic shock per the clinical indicators above? Please document a response in the Progress Notes or Discharge Summary. 1. hypovolemic shock d/t dehydration 2. hypovolemic shock d/t acute renal failure 3. hypovolemic shock d/t dehydration and acute renal failure 4. Other, with explanation of the clinical findings. 5. Clinically undetermined, no explanation for the clinical findings. PHYSICIAN RESPONSE Can you specify per above: 1 Please remember a lack of response to the above will prompt a phone page by CDI/Coding staff. In responding to this query, please exercise your independent professional judgment. The purpose of this communication is to more accurately reflect the complexity of your patients condition. The fact that a question is asked does not imply that any particular answer is desired or expected. Thank you for your timely response to this clarification. Requestors name: [ ] Phone # [ ] THIS PHYSICIAN QUERY FORM IS A PERMANENT PART OF THE MEDICAL RECORD DESMOND RUVALCABA Jul 29, 2019 13:35 MICHELLE GARCIA DO Jul 29, 2019 15:22
== END 2019-07-28 13:33 | disposition home or self-care (01) | DRG 871 ==
LOC: EDUNIT# 15:08 → ER 15:10 → ICU 19:00 → 4TH 07-26 09:09
PROVIDERS: ADMIT Internal Medicine; ATTEND Internal Medicine
DX: R57.1 Hypovolemic shock (principal); J18.9 Pneumonia, unspecified organism; N17.9 Acute kidney failure, unspecified; K31.811 Angiodysplasia of stomach and duodenum with bleeding; D50.0 Iron deficiency anemia secondary to blood loss (chronic); J98.11 Atelectasis; K76.6 Portal hypertension; N18.9 Chronic kidney disease, unspecified; I12.9 Hypertensive chronic kidney disease with stage 1 through stage 4 chronic kidney disease, or unspecified chronic kidney disease; I25.10 Atherosclerotic heart disease of native coronary artery without angina pectoris; I25.2 Old myocardial infarction; R07.9 Chest pain, unspecified; I48.0 Paroxysmal atrial fibrillation; K74.60 Unspecified cirrhosis of liver; G47.30 Sleep apnea, unspecified; K21.9 Gastro-esophageal reflux disease without esophagitis; E03.9 Hypothyroidism, unspecified; E11.65 Type 2 diabetes mellitus with hyperglycemia; E87.6 Hypokalemia; E78.00 Pure hypercholesterolemia, unspecified; F41.9 Anxiety disorder, unspecified; M19.91 Primary osteoarthritis, unspecified site; M54.9 Dorsalgia, unspecified; J30.2 Other seasonal allergic rhinitis; J98.4 Other disorders of lung; Z95.1 Presence of aortocoronary bypass graft; Z95.5 Presence of coronary angioplasty implant and graft; Z87.891 Personal history of nicotine dependence; Z79.4 Long term (current) use of insulin
CPT/HCPCS: 36415; 51702; 71045; 80053; 80076; 80306; 80320; 80329; 81000; 82140; 82150; 82248; 82550; 82553; 82962; 83605; 83690; 83735; 83874; 83880; 84100; 84439; 84443; 84484; 85014; 85018; 85025; 85610; 85730; 86850; 86900; 86901; 86902; 86922; 87040; 87081; 87449; 87804; 93005; 93041; 96361; 96365; 96367; 96368; 96375

== ENCOUNTER → 2019-09-12 | Outpatient (CLI) | payer MEDICARE ==
[~2019-09-12] MED LIST changes: +ACET-168 PO; -CETI10TA20 PO; +CETI10TA21 PO; -EVOL140S SQ; +EVOL140S2 SQ; -GLIM2TAB2 PO; +GLIM2TAB4 PO; +GLUC1CAP37 PO; +METO10TA3 PO; +METO5TAB6 PO; -ONDA8TAB12 PO; +ONDA8TAB15 PO; +TIZA2TAB4 PO
== END ==
LOC: LAB 09:32
PROVIDERS: ATTEND Internal Medicine Nephrology
DX: Z53.9 Procedure and treatment not carried out, unspecified reason (principal)

== ENCOUNTER 2019-09-26 13:05 | Outpatient (RCR) | payer MEDICARE ==
[2019-08-29 12:07] LABS: CALCIUM 8.9 MG/DL (8.5-10.1); MAGNESIUM 2.1 MG/DL (1.6-2.4); POTASSIUM 4.2 MMOL/L (3.6-5.0)
[~2019-09-26 13:05] MED LIST changes: -TIZA2TAB4 PO; +TIZA2TAB7 PO
[2019-09-26 13:16] LABS: BASOPHILS % (AUTO) 1 % (0-10); EOSINOPHILS # (AUTO) 0.3 10^3/uL (0.0-0.3); EOSINOPHILS % (AUTO) 7 % (0-10); LYMPHOCYTES # (AUTO) 0.9 X 10^3 (1.0-4.0); LYMPHOCYTES % (AUTO) 25 % (12-44); MEAN CORPUSCULAR HEMOGLOBIN 31 PG (25-34); MEAN CORPUSCULAR HGB CONC 31 G/DL (32-36); MEAN CORPUSCULAR VOLUME 99 FL (80-99); MONOCYTES # (AUTO) 0.4 X 10^3 (0.0-1.0); MONOCYTES % (AUTO) 11 % (0-12); NEUTROPHILS # (AUTO) 2.1 X 10^3 (1.8-7.8); NEUTROPHILS % (AUTO) 57 % (42-75); PLATELET COUNT 137 10^3/uL (130-400); RED CELL DISTRIBUTION WIDTH 15.4 % (10.0-14.5); WHITE BLOOD COUNT 3.8 10^3/uL (4.3-11.0)
[2019-09-26 13:33] LABS: POTASSIUM 4.6 MMOL/L (3.6-5.0)
[2019-09-26 13:34] LABS: CALCIUM 8.4 MG/DL (8.5-10.1)
[2019-09-26 13:39] LABS: CREATININE SERUM 2.28 MG/DL (0.60-1.30)
[2019-09-26 13:41] LABS: MAGNESIUM 2.6 MG/DL (1.6-2.4)
[2019-09-26 14:01] LABS: HEMATOCRIT 20 % (35-52); HEMOGLOBIN 6.4 G/DL (11.5-16.0)
[2019-10-27] MEDS ORDERED: LEVO125T6 PO (10:22)
[2019-10-29] MEDS ORDERED: AMOX-358 PO (13:52)
[2019-11-04] MEDS ORDERED: Folic Acid PO (14:40)
[2019-11-06] MEDS ORDERED: NITR-65 PO (10:14)
[2019-11-14] MEDS ORDERED: LEVO500T2 PO (16:34)
== END 2019-11-27 | disposition home or self-care (01) ==
LOC: LAB 13:05
PROVIDERS: ATTEND Internal Medicine Advanced Heart Failure and Transplant Cardiology
DX: I50.32 Chronic diastolic (congestive) heart failure (principal)
CPT/HCPCS: 36415; 80048; 83735; 83880; 85025; 86902

== ENCOUNTER 2019-09-27 18:05 | Emergency (ER) | payer MEDICARE ==
[~2019-09-27] VITALS: Ht 162.6 cm; Wt 97.8 kg
[~2019-09-27 18:05] MED LIST changes: +TIZA2TAB4 PO; -TIZA2TAB7 PO
--- OUTSIDE RECORDS SUMMARY | 2019-09-27 18:15 | XMS REPORT | Clinical Summary ---
Author Author [facility] Organization [facility] Address Unknown Phone Unavailable Care Team Providers Care Director Of Search Engine Marketing Name Role Phone Carla Wilson MD PCP Naima Field MD Unavailable Winnie Jorge MD Unavailable Emiliano Rodriguez APRN-IUSS MASTER ANALYST 7 Felisa Sneed MD 3 Source Comments Some departments are not documenting in the electronic medical record. If you d o not see the information that you expected, contact Release of Information in [facility] from[employer] Information Management department at [phone] for further assistan ce in locating additional records.[facility] Allergies Comments Active Allergy Reactions Severity Noted [...] insulin NPH (HUMULIN N Inject 10 mL NPH U-100 INSULIN) 100 fourteen 8 unit/mL injection Units under the skin every morning. Active insulin aspart U-100 Inject four 10 mL 02/27 (NOVOLOG) 100 unit/mL Units under 8 injection the skin three times daily with meals. Active Insulin Syringe-Needle Use four 100 each 0 U-100 (BD INSULIN SYRINGE times daily 8 ULTRA-FINE) 0.3 mL 31 with Insulin gauge x 5/16 syrg Active clobetasol (TEMOVATE) Apply to 0 02/06/20 1 0.05 % topical cream affected area 7 twice daily as needed Active tiZANidine (ZANAFLEX) 4 Take 4 mg by 0 mg tablet mouth at bedtime daily. Active diphenhydrAMINE (BENADRYL Take 25 mg by 0 ALLERGY) 25 mg tablet mouth every 6 hours as needed for Sleep. Active zfqjpeva-wxbrarhfl-G-doug Take 500 mg 0 anese 500-400-2-0.33 mg by mouth cap twice daily. Active levothyroxine (SYNTHROID) Take 175 mcg 0 175 mcg tablet by mouth every 48 hours. Active prochlorperazine maleate Take 10 mg by 0 (COMPAZINE) 10 mg tablet mouth every 6 hours as needed for Nausea or Vomiting. Active metoprolol tartrate Take one-half 45 tablet 3 02/14 (LOPRESSOR) 25 mg tablet tablet by 9 mouth twice daily. Active lactulose 10 gram/15 mL Take 20 mL by 1892 mL 11 oral solutionIndications: mouth twice 9 Cirrhosis of liver daily. without ascites, Titrate to unspecified hepatic 3-4 BMs/day cirrhosis type (HCC) Active magnesium oxide (MAG-OX) TAKE ONE (1) 180 tablet 3 400 mg (241.3 mg TABLET BY 9 magnesium) tablet MOUTH TWICE DAILY Active bumetanide (BUMEX) 1 mg Take two 60 tablet 2 tablet tablets by 0 mouth twice daily. Active metOLazone (ZAROXOLYN) 5 Take one 24 tablet 3 0 1/23/202 mg tablet tablet by 0 mouth twice weekly. 1 hour before morning bumex. Only take if weight is above 195 pounds. Active Problems Problem Noted Date CKD 09/30/2018 Morbid obesity 06/01/2018 Acute on chronic diastolic heart failure due to coron elena artery disease 03/31/2018 Chronic diastolic heart failure 03/31/2018 Long's esophagus 03/30/2018 Left leg cellulitis 03/29/2018 Pleural effusion on left 03/26/2018 Essential hypertension 02/23/2018 DELROY (acute kidney injury) 02/18/2018 CAD (coronary artery disease), [place] coronary artery 02/16/2018 Overview: 02/16/18: CABG x4 (PRIDE to the LAD, rever sed SVG in sequence to the OM & left posterolateral arteries, and reversed S VG anastomosed to the posterior descending branch of the RCA). Bilatera l modified CryoMaze procedure (pulmonary vein isolation). Suture liga tion of left atrial appendage. HLD (hyperlipidemia) 02/16/2018 Hypothyroidism 02/16/2018 Hepatitis B 02/16/2018 Obstructive pattern present on pulmonary function carmelita ting 02/16/2018 Thrombocytopenia 02/16/2018 Junctional rhythm 02/16/2018 Type 2 diabetes mellitus with circulatory disorder, w ithout long-term 02/12/2018 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 PAF (paroxysmal atrial fibrillation) 02/12/2018 Overview: 02/16/18: Bilateral modified CryoMaze pro cedure (pulmonary vein isolation) & Suture ligation of left atrial appendag e at time of CABG. 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 anemia 11/13/2017 Overview: Added automatically from request for carol soria [id number] Resolved Problems Problem Noted Date Resolved Date Acute hypoxemic respiratory failure 06/02/2018 Sepsis 06/01/2018 06/07/2018 Acute respiratory failure with hypercapnia 02/18/2018 02/23/2018 Metabolic acidosis 02/18/2018 02/21/2018 Nausea with vomiting, unspecified 02/18/201802/13 Vasogenic shock 02/16/2018 02/21/2018 Hyperammonemia 02/16/2018 02/23/2018 Respiratory acidosis 02/16/2018 02/21/2018 Acute blood loss anemia 02/16/2018 03/29/2018 NSTEMI (non-ST elevated myocardial infarction) 02/12/2018 02/23/2018 Atrial fibrillation with rapid ventricular response 201706/18/2018 Encounters Care Team Description Date Type Specialty Tracie Stuart RN Lab Results 09/27/2019 Telephone Cardiology Rina Ruano MA Labs Only 09/27/2019 Documentation Cardiology Rina Ruano MA 07/28/2019 Documentation Cardiology Roland Hernández APRN-IUSS MASTER ANALYST Palliative Care 07/05/2019 Office Visit Cardiology Felisa Sneed MD Cardiac Eval (3 month recheck) 07/05/2019 Office Visit Cardiology from Last 3 Months Immunizations Name Administration Dates Next Due Pneumococcal Vaccine 02/15/2018 (), 02/14/2018 ( Deferred: - pt febrile (23-Ninfa Adult) within last [...] Signs Reading Time Taken Comments Vital Sign 112/40 07/05/2019 9:11 AM FUNDS TRANSFER CLERK Blood Pressure 77 07/05/2019 9:11 AM FUNDS TRANSFER CLERK Pulse 36.4 C (97.5 F) 07/05/2019 8:40 AM FUNDS TRANSFER CLERK Temperature 16 03/08/2019 2:34 PM CDT Respiratory Rate 100% 07/05/2019 8:40 AM FUNDS TRANSFER CLERK Oxygen Saturation - - Inhaled Oxygen Concentration 93.4 kg (206 lb) 07/05/2019 9:11 AM FUNDS TRANSFER CLERK Weight 162.6 cm (5' 4") 07/05/2019 9:11 AM FUNDS TRANSFER CLERK Height 35.36 07/05/2019 9:11 AM FUNDS TRANSFER CLERK Body Mass Index Plan of Treatment Health Maintenance Due Date Last Done Comments MEDICARE ANNUAL WELLNESS 1957 VISIT DTAP/TDAP VACCINES (1 - 1968 Tdap) DILATED EYE EXAM 1975 FOOT EXAM 1975 MICROALBUMIN 1975 PHYSICAL (COMPREHENSIVE) 1975 EXAM PNEUMONIA VACCINE (DM) 1975 CERVICAL CANCER SCREENING 1978 BREAST CANCER SCREENING 1997 SHINGLES RECOMBINANT 2007 VACCINE (1 of 2) HBA1C 08/12/2018 02/12/2018 INFLUENZA VACCINE 01/14/2020 03/15/2017 (Previously completed), 04/09/2000, 03/27/1999, Additional history exists COLORECTAL CANCER 09/07/2028 09/07/2018, SCREENING 04/07/2018 HEPATITIS C SCREENING Completed 02/15/2018 HIV SCREENING Completed 04/29/2018 Implants Device Identifier Shelf Expiration Date Model / Serial / L ot Implanted Type Area Manufactur er Port Port Description:Port placed at OSH. Power injectable confirmed by card. LESLEY RN [id number] / [id number] / [id number] Plate Acutie Sternal Closure - N/A: Sternum ACT [id number] INNOVATION Implanted: Qty: 2 on 02/16/2018 by Lance Conte MD at [facility] [id number] / [id number] / [id number] Plate Acutie Sternal Closure - N/A: Sternum ACT [id number] INNOVATION Implanted: Qty: 1 on 02/16/2018 by Lance Conte MD at [facility] Procedures Comments Procedure Name Priority Date/Time Associated Diag nosis CBC Routine 09/26/2019 Chronic diastol ic heart failure (HCC) PAF (paroxysmal atrial fibrillation) (HCC) Heart disease BNP (B-TYPE NATRIURETIC Routine 09/26/2019 Chroni c diastolic heart PEPTI) failure (HCC) PAF (paroxysmal atrial fibrillation) (HCC) Heart disease BASIC METABOLIC PANEL Routine 09/26/2019 Chronic diastolic heart failure (HCC) PAF (paroxysmal atrial fibrillation) (HCC) Heart disease MAGNESIUM Routine 09/26/2019 Chronic diastol ic heart failure (HCC) PAF (paroxysmal atrial fibrillation) (HCC) Heart disease PROTIME INR (PT) Routine 07/28/2019 CBC AND DIFF Routine 07/28/2019 COMPREHENSIVE METABOLIC Routine 07/28/2019 PANEL from Last 3 Months Results * CBC (09/26/2019) Pathologist [facility] White Blood 3.8 (L) 4.3 - 11.0 [facility] Cells RBC 2.07 (L) 4.35 - 5.85 [facility] Hemoglobin 6.4 (<) 11.5 - 16.0 [facility] Hematocrit 20 (<) 35 - 52 [facility] MCV 99 [facility] MCH 31 [facility] MCHC 31 (L) 32 - 36 [facility] Platelet Count 137 [facility] MPV 10.0 [facility] RDW 15.4 (H) 10.0 - 14.5 [facility] Specimen Blood - Blood Performing Organization Address [facility] Ph one Number MAIN LAB [address] [place] [address] * BNP (B-TYPE NATRIURETIC PEPTI) (09/26/2019) [facility] B Type 376.1 (H) <100.0 [facility] Natriuretic Peptide BNP NT pro [facility] Specimen Blood - Blood Performing Organization Address City/[facility]/Zipcode Ph one Number MAIN LAB [address] [place] [address] * MAGNESIUM (09/26/2019) [facility] Magnesium 2.6 (H) 1.6 - 2.4 [facility] Specimen Blood - Blood Narrative Performed At This result has an attachment that is n ot available. Performing Organization Address [facility] Ph one Number MAIN LAB [address] [place] [address] * BASIC METABOLIC PANEL (09/26/2019) Pathologist [facility] Sodium 141 [facility] Potassium 4.6 [facility] Chloride 109 (H) 98 - 107 [facility] CO2 23 [facility] Blood Urea 44 (H) 7 - 18 [facility] Nitrogen Creatinine 2.28 (H) 0.60 - 1.30 [facility] Glucose 123 (H) 70 - 105 [facility] Calcium 8.4 (L) 8.5 - 10.1 [facility] eGFR Non 22 [facility] eGFR [facility] Citizen [place] Anion Gap 9 [facility] BUN/Creatinine 19 [facility] Ratio Specimen Blood - Blood Performing Organization Address City/State[facility] Ph one Number [facility] [address] [place] [address] * PROTIME INR (PT) (07/28/2019) [facility] INR 1.1 0.8 - 1.4 OTHER OUTSIDE LAB Protime 14.2 OTHER OUTSIDE LAB Specimen Blood - Blood Performing Organization Address City/[facility] one Number OTHER OUTSIDE LAB * CBC AND DIFF (07/28/2019) [facility] White Blood 3.4 (L) 4.3 - 11.0 OTHER OUTSIDE Cells LAB RBC 2.45 (L) 4.35 - 5.85 OTHER OUTSIDE LAB Hemoglobin 7.6 (L) 11.5 - 16.0 OTHER OUTSIDE LAB Hematocrit 24 (L) 35 - 52 OTHER OUTSIDE LAB MCV 97 OTHER OUTSIDE LAB MCH 31 OTHER OUTSIDE LAB MCHC 32 OTHER OUTSIDE LAB Platelet Count 116 (L) 130 - 400 OTHER OUTSIDE LAB MPV 10.1 OTHER OUTSIDE LAB RDW 15.1 (H) 10.0 - 14.5 OTHER OUTSIDE LAB Neutrophils 1.8 OTHER OUTSIDE LAB Absolute 52 OTHER OUTSIDE Neutrophil LAB Count Lymphocytes 1.0 OTHER OUTSIDE LAB Absolute Lymph 28 OTHER OUTSIDE Count LAB Monocytes 0.4 OTHER OUTSIDE LAB Absolute 12 OTHER OUTSIDE Monocyte Count LAB Eosinophil 0.3 OTHER OUTSIDE LAB Absolute 7 OTHER OUTSIDE Eosinophil LAB Count Basophils 0.0 OTHER OUTSIDE LAB Absolute 1 OTHER OUTSIDE Basophil Count LAB Atypical Lym OTHER OUTSIDE LAB Metamyelocyte OTHER OUTSIDE LAB Myelocyte OTHER OUTSIDE LAB Promyelocyte OTHER OUTSIDE LAB Blast OTHER OUTSIDE LAB RBC Morph OTHER OUTSIDE LAB WBC Morphology OTHER OUTSIDE LAB Specimen Blood - Blood Narrative Performed At This result has an attachment that is n ot available. Performing Organization Address City/State/[facility] Ph one Number OTHER OUTSIDE LAB * COMPREHENSIVE METABOLIC PANEL (07/28/2019) Sodium 138 OTHER OUTSIDE LAB Potassium 4.3 OTHER OUTSIDE LAB Chloride 110 (H) 98 - 107 OTHER OUTSIDE LAB CO2 23 OTHER OUTSIDE LAB Blood Urea 25 (H) 7 - 18 OTHER OUTSIDE Nitrogen LAB Creatinine 1.80 (H) 0.60 - 1.30 OTHER OUTSIDE LAB Glucose 220 (H) 70 - 105 OTHER OUTSIDE LAB Calcium 8.0 (L) 8.5 - 10.1 OTHER OUTSIDE LAB Total Protein 5.5 (L) 6.4 - 8.2 OTHER OUTSIDE LAB Total Bilirubin 0.4 OTHER OUTSIDE LAB Albumin 2.9 (L) 3.2 - 4.5 OTHER OUTSIDE LAB Alk Phosphatase 54 OTHER OUTSIDE LAB AST (SGOT) 16 OTHER OUTSIDE LAB ALT (SGPT) 11 OTHER OUTSIDE LAB eGFR Non 29 OTHER OUTSIDE LAB Citizen [place] eGFR OTHER OUTSIDE Citizen [place] LAB Anion Gap 5 OTHER OUTSIDE LAB BUN/Creatinine 14 OTHER OUTSIDE Ratio LAB Specimen Blood - Blood Performing Organization Address City/State/Zipcode one Number OTHER OUTSIDE LAB from Last 3 Months Insurance Type Payer Benefit Subscriber ID Effective Phone Address Plan / Dates Group Medicare MEDICARE MEDICARE xxxxxxxxxxx 2018-P PART A AND resent B 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 06/02/2018 8:28 AM Full Code 06/01/2018 6:56 PM Provider has discussed Code Status No, more discussi on w/Patient or Family? needed 04/09/2018 12:03 AM Full Code 03/25/2018 6:45 PM Provider has discussed Code Status Yes w/Patient or Family? 02/27/2018 7:27 PM Full Code 02/13/2018 3:21 AM Provider has discussed Code Status Yes w/Patient or Family? 02/13/2018 3:21 AM Full Code 02/12/2018 7:28 PM Provider has discussed Code Status No, more discussi on w/Patient or Family? needed
--- OUTSIDE RECORDS SUMMARY | 2019-09-27 18:15 | XMS REPORT | Encounter Summary ---
Author Author [facility] Organization [facility] Address Unknown Phone Unavailable Care Team Providers Care Cnmt Name Role Phone Carla Wilson MD PCP Naima Field MD Unavailable Winnie Jorge MD Unavailable Emiliano Rodriguez SHELLFISH GROWER-LOAN APPROVER 7 Felisa Sneed MD 3 Encounter Details Care Team Description Date Type Department Rina Ruano MA 07/28/[address] [facility] [id number] [place] [address] Social History Date Tobacco Use Types Packs/Day [...] Status Date of Assessment Functional Status Response 07/05/2019 Does the patient have a hearing impairment: No 07/05/2019 Does the patient have a visual impairment: No 07/05/2019 Does the patient have impaired ambulation: No 07/05/2019 Does the patient have an activity of daily living No (ADL) impairment: 07/05/2019 Does the patient have an instrumental activity of No daily living (IADL) impairment: Date of Assessment Cognitive Status Response 07/05/2019 Does the patient have a cognitive impairment: No documented as of this encounter Plan of Treatment Not on filedocumented as of this encounter Procedures Comments Procedure Name Priority Date/Time Associated Diag nosis PROTIME INR (PT) Routine 07/28/2019 CBC AND DIFF Routine 07/28/2019 COMPREHENSIVE METABOLIC Routine 07/28/2019 PANEL documented in this encounter Results * PROTIME INR (PT) (07/28/2019) Pathologist [facility] INR 1.1 0.8 - 1.4 OTHER OUTSIDE LAB Protime 14.2 OTHER OUTSIDE LAB Specimen Blood - Blood Performing Organization Address City/[facility] one Number OTHER OUTSIDE LAB * CBC AND DIFF (07/28/2019) Pathologist [facility] White Blood 3.4 (L) 4.3 - 11.0 [...] is n ot available. Performing Organization Address City/[facility] Ph one Number OTHER OUTSIDE LAB * COMPREHENSIVE METABOLIC PANEL (07/28/2019) Pathologist [facility] Sodium 138 OTHER OUTSIDE LAB Potassium 4.3 [...] LAB eGFR Non 29 OTHER OUTSIDE LAB [place] eGFR OTHER OUTSIDE [place] LAB Anion Gap 5 OTHER OUTSIDE LAB BUN/Creatinine 14 OTHER OUTSIDE Ratio LAB Specimen Blood - Blood Performing Organization Address City/State[facility] Ph one Number OTHER OUTSIDE LAB documented in this encounter Visit Diagnoses Not on filedocumented in this encounter
--- OUTSIDE RECORDS SUMMARY | 2019-09-27 18:15 | XMS REPORT | Encounter Summary ---
Author Author [facility] Organization [facility] Address Unknown Phone Unavailable Care Team Providers Care Farm Marketer Name Role Phone Carla Wilson MD PCP Naima Field MD Unavailable Winnie Jorge MD Unavailable Emiliano Rodriguez FILENET ADMIN-REGULATORY SUBMISSIONS SPECIALIST 7 Felisa Sneed MD 3 Reason for Visit * Reason Comments Palliative Care * Consult, Test & Treat (Routine) Referred By Contact Referred To Contact Status Reason Specialty Diagnoses / Procedures Felisa Sneed MD [address] [facility] [place] [address] Pending Review Procedures REQUEST FOR CARDIOLOGY APPOINTMENT Encounter Details Care Team Description Date Type Department Roland Hernández FILENET ADMIN-REGULATORY SUBMISSIONS SPECIALIST [id number] [place], [place] [id number] Palliative Care 07/05/2019 Office Visit [facility] [address] [address] Social History Date Tobacco Use Types Packs/Day [...] Comments Vital Sign 112/40 07/05/2019 9:11 AM RN RELIEF CHARGE Blood Pressure 77 07/05/2019 9:11 AM RN RELIEF CHARGE Pulse - - Temperature - - Respiratory Rate - - Oxygen Saturation - - Inhaled Oxygen Concentration 93.4 kg (206 lb) 07/05/2019 9:11 AM RN RELIEF CHARGE Weight 162.6 cm (5' 4") 07/05/2019 9:11 AM RN RELIEF CHARGE Height 35.36 07/05/2019 9:11 AM RN RELIEF CHARGE Body Mass Index documented in this encounter [...] as of this encounter Progress Notes * Roland Hernández, SAMANTHA-REGULATORY SUBMISSIONS SPECIALIST - 07/05/2019 9:30 AM RN RELIEF CHARGE PALLIATIVE CARE OUTPATIENT VISIT Date of Service: 07/05/2019 MAC/HF Attending: Dr. Sneed PCP: Carla Wilson Reason for consult: Goals of care r/t diastolic HF, multiple comorbid conditions History taken from: Patient, , chart ASSESSMENT/PLAN 1. Goals of care r/t diastolic HF, GAVE, cirrhosis, transfusion-dependent anemia Provided overview of supportive palliative care services. Pt/ convey basic insight to pt's very complicated disease. They do not convey insight to anticipated prognosis, however they do recognize her combined diseases are complicated and cannot be "fixed". They feel well supported by involved specialists. Regarding goals, these jacinto in fully aggressive at this time. Benefiting from transfusions, hospitalization, interest in CPR. I did introduce idea of doing things for vs to pt would serious illness. We reviewed option to clarify preferences for medical escalation of c are in the future if of interest. Pt defers to as decision-maker for healthcare needs if unable to spea k for self; not feeling up to completing DPOA at this time. Recommend this be co mpleted in the near future. Reviewed idea of safety net planning for the future, particular attention to option for home health as safety net (this would be under direction of PCP or sp ecialists primarily managing care per preferences). Pt doesn't have additional r esources for home care given financial constraints. Reviewed many variables to c are that could influence future transitions (such as blood transfusions not doab le with hospice services). Reviewed that primary needs are not HF related and would defer ongoing pallia tive care needs to PCP/specilsits unless HF becomes primary haul driver of decompensa tion in health status. Follow-up: PRN Thank you for the opportunity to participate in the care of this patient. Please call with any questions or concerns. Roland Hernández APRN, REGULATORY SUBMISSIONS SPECIALIST-C Palliative Care--Outpatient Heart Failure Pager: Office: (Total time spent 45 minutes [id number] with patient & . Estimated counseling time >40 min. Counseled patient regarding involved comorbid disease processes, safety net planning, goals of care.) SUBJECTIVE CC: Fatigue HPI: Deborah Fields is a 64 y.o. female with diastolic HFpEF, GAVE, cirrhosis wi th transfusion-dependent anemia, CKD, morbid obesity, CAD, hypothyroidism, parox ysmal atrial fibrillation. Pt follows with Dr. Sneed from HF clinic who h as requested palliative care consultation for introductory goals of care discuss ion given complexity of disease and limited ongiong management options (julisa d through direct discussion). Met in room with patient and . Provided overview of supportive palliative care services. Pt states she is not feeling well today--additionally fatigued w ith is periodic issue for patient; defers much of conversation to . Revie wed insight of disease. able to convey a basic overivew of pt's complica edgardo cirrhosis and need for frequent blood transufsions (for about 2 years--manag ed by hematology/oncology group in local community). They are aware of heart jared lure, which is relatively stable at this time. Last admission was just before ristmas--they continue to find hospitalization helpful. Pt required intubation i n the last year and was able to have full recovery. Reviewed big picture of pt's health and involved goals, safety net and preparedn ess planning. Pt and convey understanding that pt has very complicated h ealth issues and that there are no "fixes" for these issues. They are feeling we ll supported by their specialists and follow regularly. They do not have home he alth currently, but has periodically in the past. We reviewed option of home hea lth in the future for stronger safety net planning. Discussed this would be unde r direction of PCP or specialist most involved with management. We also reviewed additional home support considerations, such as hired care giving. These is sig nificant financial strain and this isn't feasible. There is no VA or LTC benefit to tap into. I introduced idea of doing things for vs to patient with specific attention to p t's involved complicated illness. Reviewed option to name medical DPOA and discu ssed what this is. Pt defers to but doesn't feel up to completing form a t this time. Reviewed considerations r/t preferences for future medical complica tions, including possible cardiopulmonary arrest. Pt very clearly indicates inte rest to "do everything". Refers to her need for intubation in the last year and ability to recover. 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 ROS: + fatigue, intermittent nausea - chest pain, dyspnea Past Medical History: Medical History: Diagnosis Date Acquired hypothyroidism Arthritis Back pain Bleeding disorder (HCC) CAD (coronary artery disease), [place] coronary artery 02/16/2018 Chronic diastolic heart failure (HCC) 03/31/2018 Coronary artery disease Diabetes mellitus (HCC) Type II Essential hypertension 02/23/2018 Hypertension Stomach disorder Vision decreased Surgical History: Surgical History: Procedure Laterality Date HX HEART CATHETERIZATION 2017 CORONARY STENT PLACEMENT 2016 CORONARY ARTERY BYPASS WITH ARTERIAL GRAFT - 4 GRAFTS (Internal Mammary Torie ry and Endovascular Vein [place]) N/A 02/16/2018 Performed by Lance Pal MD at [facility] MAZE PROCEDURE N/A 02/16/2018 Performed by Lance Pal MD at [facility] ESOPHAGOGASTRODUODENOSCOPY N/A 03/29/2018 Performed by Dannielle Covington MD at ENDO/GI COLONOSCOPY N/A 04/07/2018 Performed by Skinny Marshall MD at ENDO/GI COLONOSCOPY DIAGNOSTIC WITH SPECIMEN COLLECTION BY BRUSHING/ WASHING - FLEXI BLE N/A 09/07/2018 Performed by Lynette Diana MD at ENDO/GI ESOPHAGOGASTRODUODENOSCOPY WITH ABLATION TUMOR/ POLYP/ OTHER LESION - FLEXIB LE N/A 09/07/2018 Performed by Lynette Diana MD at ENDO/GI COLONOSCOPY WITH SNARE REMOVAL TUMOR/ POLYP/ OTHER LESION 09/07/2018 Performed by Lynette Diana MD at ENDO/GI ANKLE SURGERY Left ankle reconstruction COLONOSCOPY HX KNEE ARTHROSCOPY Left HX TONSIL AND ADENOIDECTOMY TUBAL LIGATION UPPER GASTROINTESTINAL ENDOSCOPY Family History: Family History Problem Relation Age [...] Cancer Paternal Grandfather Social History: Social History Socioeconomic History Marital [...] file Social History Narrative Not on file OBJECTIVE Vitals: Vitals: 07/05/19 0911 BP: 112/40 Pulse: 77 Weight: 93.4 kg (206 lb) Height: 1.626 m (5' 4") Physical Exam: Constitutional: Adult female, chronically ill in appearance, no obvious acute di stress. Eyes: Sclera non-icteric, conjunctiva clear. ENMT: Lips, mucosa, and tongue moist. Neck: Supple. Trachea midline. Respiratory: Non-labored breathing pattern at rest or with conversation. Skin: Pale, warm, dry, no rash/lesions. Neurologic: Alert and oriented to person, place, time, and situation. Psych: Somewhat flat affect. Palliative Performance Scale: Performance Scale (%): 60 Advanced Care Planning: Code Status: Full Code Level of Intervention: Full Treatment DPOA: Defers to ; have encouraged to complete DPOA form. Cardiac Devices: None Medications: bumetanide (BUMEX) 1 mg tablet Take two tablets by mouth twice daily. cetirizine (ZYRTEC) 10 mg tablet Take 10 mg by mouth every morning. clobetasol (TEMOVATE) 0.05 % topical cream Apply to affected area twice bree y as needed diphenhydrAMINE (BENADRYL ALLERGY) 25 mg tablet Take 25 mg by mouth every 6 hours as needed for Sleep. folic acid (FOLVITE) 1 mg tablet Take 1 mg by mouth daily. rwvjxhjv-oaasghbog-F-manganese 500-400-2-0.33 mg cap Take 500 mg by [...] syrg Use four times daily with Insulin lactulose 10 gram/15 mL oral solution Take 20 mL by mouth twice daily. Titra te to 3-4 BMs/day levothyroxine (SYNTHROID) 175 mcg tablet Take 175 mcg by mouth every 48 hour s. magnesium oxide (MAG-OX) 400 mg (241.3 mg magnesium) tablet TAKE ONE (1) TAB LET BY MOUTH TWICE DAILY [START ON 07/07/2019] metOLazone (ZAROXOLYN) 5 mg tablet Take one tablet by m outh twice weekly. 1 hour before morning bumex. Only take if weight is above 195 pounds. metoprolol tartrate (LOPRESSOR) 25 mg tablet Take one-half tablet by mouth t wice daily. nitroglycerin (NITROSTAT) 0.[address] 0.4 mg under tongue every 5 mi nutes as needed for Chest Pain. Max of 3 tablets, call 911. omeprazole DR(+) (PRILOSEC) 40 mg capsule Take 40 mg by mouth twice daily. ondansetron (ZOFRAN) 8 mg tablet Take 8 mg by mouth every 8 hours as needed for Nausea or Vomiting. prochlorperazine maleate (COMPAZINE) 10 mg tablet Take 10 mg by mouth every 6 hours as needed for Nausea or Vomiting. tiZANidine (ZANAFLEX) 4 mg tablet Take 4 mg by mouth at bedtime daily. traMADol (ULTRAM) 50 mg tablet Take one tablet by mouth every 6 hours as nee ded for Pain. Palliative Care Outpatient - Heart Failure: MD Roland Mackay APRN [address] [facility] [address] [place] [address] [phone] Phone contact: [phone] RELIEF CHARGE documented in this encounter Miscellaneous Notes * Advanced Care Planning/Resuscitation Status - Roland Hernández APRN-NP - 07/05/2019 9:30 AM RN RELIEF CHARGE Advance Care Planning/Resuscitation Status Conversation Individuals present for advance care planning conversation: Patient, (), Edgar Palliative REGULATORY SUBMISSIONS SPECIALIST Pertinent details of conversation (including direct quotes from patient or surro gate): I introduced idea of doing things for vs to patient with specific attention to p t's involved complicated illness. Reviewed option to name medical DPOA and discu ssed what this is. Pt defers to but doesn't feel up to completing form a t this time. Reviewed considerations r/t preferences for future medical complica tions, including possible cardiopulmonary arrest. Pt very clearly indicates inte rest to "do everything". Refers to her need for intubation in the last year and ability to recover. 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 Outcome of conversation: Full Code Documents completed as a result of this conversation: None Other documents present, which outline patient/surrogate wishes: None (See full palliative care consult note on same day (07/05/19); this is not a sepa rate billable note). Roland Hernández APRN REGULATORY SUBMISSIONS SPECIALIST-C Palliative Care--Outpatient Heart Failure Pager: Office: RELIEF CHARGE documented in this encounter Plan of Treatment Not on filedocumented as of this encounter Visit Diagnoses Diagnosis Chronic diastolic heart failure (HCC) Chronic diastolic heart failure Hepatic cirrhosis, unspecified hepatic cirrhosis type, unspecified whether ascites present (HCC) GAVE (gastric antral vascular ectasia) Angiodysplasia of stomach and duodenum (without mention of hemorrhage) Transfusion-dependent anemia Anemia, unspecified Goals of care, counseling/discussion Other specified counseling documented in this encounter
--- OUTSIDE RECORDS SUMMARY | 2019-09-27 18:15 | XMS REPORT | Encounter Summary ---
Author Author [facility] Organization [facility] Address Unknown Phone Unavailable Care Team Providers Care Web Site Project Manager Name Role Phone Carla Wilson MD PCP Namia Field MD Unavailable Winnie Jorge MD Unavailable Emiliano Rodriguez MACHINE SETTER AUTOMATIC-PROCEDURES NURSE 7 Felisa Sneed MD 3 Reason for Visit * Reason Comments Lab Results Encounter Details Care Team Description Date Type Department Tracie Stuart, worship director Results 09/27/2019 Telephone [facility] [address] [address] Social History Date Tobacco Use Types Packs/Day [...] encounter Miscellaneous Notes * Telephone Encounter - Tracie Stuart RN - 09/27/2019 4:35 PM CDT Felisa Sneed MD Lang, Katherine, THOMPSON; Pat Combs RN Caller: Unspecified (Today, 12:13 PM) Given symptoms, labs, BP she needs admission. She is welcome to come here. Thanks Returned call to patient with recommendations from Dr. Sneed. Patient is agreeable to go to ER. She states she would prefer to go to [facility] ER in [place], [place] as this is where she goes for her blood transfusions and is closest to home. Routed to nursing team Len to follow-up next week with patient and request r ecords. * Telephone Encounter - Tracie Stuart RN - 09/27/2019 12:13 PM CDT Received monthly lab results on patient with several abnormal values. Called isaura haile for symptom update. Patient reports feeling very SOB and fatigued. She repeatedly states "I'm not do ing well" and that she almost went to the ER 09/22 due to SOB. Patient had to shanu se multiple times during conversation due to SOB. Her weight today is 216lbs, 213lbs yesterday. She states a "good" home weight fo r her is 198lbs. This has increased gradually over the past few weeks. BP this A M was 80/44, this improved to 104/??. She also reports swelling in her ankles, l egs, and abdomen. She is experiencing significant nausea and is taking compazine and zofran to subdue her vomiting. She reports blood in her stool which she has shared with Dr. Naima Field's (hematology) team who is addressing her anemia. She reports receiving a unit of blood almost weekly the past few weeks. She has been told she is unable to receive more than that at this time due to rationing for the pandemic. She also reports a constant pounding in her head. Update and labs routed to Dr. Sneed for review. documented in this encounter Plan of Treatment Not on filedocumented as of this encounter Visit Diagnoses Not on filedocumented in this encounter
--- OUTSIDE RECORDS SUMMARY | 2019-09-27 18:15 | XMS REPORT | Encounter Summary ---
Author Author [facility] Organization [facility] Address Unknown Phone Unavailable Care Team Providers Care Computer Project Manager Name Role Phone Carla Wilson MD PCP Naima Field MD Unavailable Winnie Jorge MD Unavailable Emiliano Rodriguez TRACTOR TRAILER TECHNICIAN-SAFETY ADVISOR 7 Felisa Sneed MD 3 Reason for Visit * Reason Comments Labs Only Encounter Details Care Team Description Date Type Department Rina Ruano MA Labs Only 09/27/2019 Documentation [facility] [address] [facility] [place] [address] Social History Date Tobacco Use Types Packs/Day [...] PAF (paroxysmal atrial fibrillation) (HCC) Heart disease documented in this encounter Results * CBC (09/26/2019) White Blood 3.8 (L) 4.3 - 11.0 [...] Specimen Blood - Blood Performing Organization Address [facility] Ph one Number [facility] [address] [phone] * BNP (B-TYPE NATRIURETIC PEPTI) (09/26/2019) B Type 376.1 (H) <100.0 [facility] Natriuretic Peptide BNP NT pro [facility] Specimen Blood - Blood Performing Organization Address [facility] Ph [facility] Number MA[facility] [address] [place] [address] * BASIC METABOLIC PANEL (09/26/2019) Pathologist [facility] Sodium 141 [facility] Potassium 4.6 [...] [facility] eGFR [facility] [place] Anion Gap 9 [facility] BUN/Creatinine 19 [facility] Ratio Specimen Blood - Blood Performing Organization Address [facility] Number [facility] [address] [place] [address] * MAGNESIUM (09/26/2019) Magnesium 2.6 (H) 1.6 - 2.4 [facility] Specimen Blood - Blood Narrative Performed At This result has an attachment that is n ot available. Performing Organization Address [facility] Number MA[facility] [address] [place] [address] documented in this encounter Visit Diagnoses Diagnosis Chronic diastolic heart failure (HCC) Chronic diastolic heart failure PAF (paroxysmal atrial fibrillation) (H CC) Atrial fibrillation Heart disease Heart disease, unspecified documented in this encounter
--- OUTSIDE RECORDS SUMMARY | 2019-09-27 18:16 | XMS REPORT | Encounter Summary ---
Author Author [facility] Organization [facility] Address Unknown Phone Unavailable Care Team Providers Care Visual Display Associate Name Role Phone Carla Wilson MD PCP Naima Field MD Unavailable Winnie Jorge MD Unavailable Emiliano Rodriguez BACK UP MACHINE OPERATOR-EDUCATION SALES CONSULTANT 7 Felisa Sneed MD 3 Encounter Details Care Team Description Date Type Department Oliverio Mcneil LPN 05/23/[address] [facility] [id number] [place] [address] Social History Date Tobacco Use Types Packs/Day [...] Status Date of Assessment Functional Status Response 03/08/2019 Does the patient have a hearing impairment: No 03/08/2019 Does the patient have a visual impairment: Yes 03/08/2019 Does the patient have impaired ambulation: Yes 03/08/2019 Does the patient have an activity of daily living No (ADL) impairment: 03/08/2019 Does the patient have an instrumental activity of Ye s daily living (IADL) impairment: Date of Assessment Cognitive Status Response 03/08/2019 Does the patient have a cognitive impairment: Yes documented as of this encounter Miscellaneous Notes * Addendum Note - Alice Esposito RN - 06/01/2019 3:03 PM PEAR PICKER Addended by: ALICE ESPOSITO on: 06/01/2019 03:03 PM Modules accepted: Orders PICKER * Telephone Encounter - Alice Esposito RN - 06/01/2019 2:57 PM PEAR PICKER Felisa Sneed MD [place], Cara, RN Nope. That is all. Please set a reminder to check in with her between and for weight/BP/symptoms and keep me posted. THANKS Previous Messages ----- Message ----- From: Alice Esposito RN Sent: 06/01/2019 1:57 PM PEAR PICKER To: Felisa Sneed MD Here are Deborah's labs from Thursday. Continue to hold Toro and Bumex (if not eating and drinking). Any other med fanny nges? Called patient and spoke with her about medication changes. Pt verbalized unders tanding. Clifton removed from list, pt said she hadn't been feeling well today. Ag guy to plan with Bumex and will hold if she is unable to keep anything down. Pt will call us back if she has any additional concerns. PICKER * Telephone Encounter - Alice Esposito RN - 06/01/2019 11:17 AM PEAR PICKER Returned call to patient. She reports not feeling as loopy today, she is insisting on stopping spironolact one. She said she does not feel well when she takes it. Weight stable today 194lbs again, no swelling reported, no SOA. Pt has not taken her BP today. Pt only taking 1mg Bumes daily. Pt does have pneumonia, she was told this on Thursday, not on any antibiotics. Minor lightheadedness, pt thinks she is dry as she was vomiting all day yesterda y and overnight. Request sent for lab results from Thursday to be sent to us. Will route to Dr. Sneed for review. PICKER * Telephone Encounter - Oliverio Mcneil LPN - 06/01/2019 10:03 AM PEAR PICKER Pt called on 05/31 after 1600 reporting feeling "loopy" and asks for call back, called pt to assess: Patient Status patient is an established patient with [facility]. Signs and Symptoms Light headedness No swelling SOA had improved Pt reports being forgetful Lots of vomiting yesterday and could not keep anything down Pt was in ED Thursday, was told she had pneumonia Medication Review bumex 2 mg Clifton 12.5 mg Pt states she will hold toro today and only take 1 mg bumex Pt blames not feeling well on spironolactone Fluid/sodium Intake Patient is drinking under 64 oz of fluid daily Date Weight B/P Pulse 06/01 05/31 194 93/44 64 05/30 198 Date Weight B/P Pulse 05/23 200 05/22 201.2 05/21 201.8 05/20 202.4 05/19 201.9 05/18 201 05/17 05/16 199.2 05/15 200.4 05/14 05/13 05/12 196.2 05/11 05/10 05/09 05/08 05/06 05/05 05/04 05/03 05/02 190 Records request sent to PICKER * Addendum Note - Pat Combs RN - 05/24/2019 4:20 PM PEAR PICKER Addended by: PAT COMBS on: 05/24/2019 04:20 PM Modules accepted: Orders PICKER * Addendum Note - Pat Combs RN - 05/24/2019 3:40 PM PEAR PICKER Addended by: PAT COMBS on: 05/24/2019 03:40 PM Modules accepted: Orders PICKER * Telephone Encounter - Pat Combs RN - 05/24/2019 3:13 PM PEAR PICKER Reviewed with Dr. Chong. Orders given for patient to double her Bumex to 2mg da masood and to start Spironolactone 12.5mg daily. Labs on Thursday. Called to discuss with patient. She states she did lose 2 lbs and her weight to day is 198 lbs. She is concerned that she will put it back on. I reviewed Dr. Chong's orders with her. She states she still has spironolactone from previous and will start 1/2 tab daily. She is getting labs drawn at the [facility] on Thursday and asks that the lab requisition be sent there. I asked at if she is not feeling better by Thursday to give us a call that morning. She r epeated the instructions back and verbalized understanding. Called the Cancer [facility] at [facility], . Spoke with Kaylyn and she gave me fax number [phone] to fax the requisition. PICKER * Telephone Encounter - Oliverio Mcneil LPN - 05/23/2019 3:03 PM PEAR PICKER Pt called asking about lab results, called to assess: Patient Status patient is an established patient with [facility]. Signs and Symptoms Abdominal swelling Leg swelling Some SOA the last 2 days Medication Review Taking bumex 1 mg daily for a month. Pt thinks this was done after an admission at [facility] Recent Salt Intake Pt drinking 32 oz daily Date Weight B/P Pulse 05/23 200 05/22 201.2 05/21 201.8 05/20 202.4 05/19 201.9 05/18 201 05/17 05/16 199.2 05/15 200.4 05/14 05/13 05/12 196.2 05/11 05/10 05/09 05/08 05/06 05/05 05/04 05/03 05/02 190 Records request sent to [facility] for lab results. PICKER documented in this encounter Plan of Treatment Not on filedocumented as of this encounter Results * BASIC METABOLIC PANEL (05/30/2019) Sodium 142 135 - 145 [facility] Potassium 4.4 3.6 - 5.0 [facility] Chloride 104 98 - 107 [facility] CO2 26 21 - 32 [facility] Blood Urea 45 (H) 7 - 18 [facility] Nitrogen Creatinine 2.31 (H) 0.60 - 1.30 [facility] Glucose 154 (H) 70 - 105 [facility] Calcium 10.3 (H) 8.5 - 10.1 [facility] eGFR Non 21 [facility] eGFR [facility] Cook Islander Anion Gap 12 5 - 14 [facility] Specimen Blood - Blood Narrative Performed At This result has an attachment that is n ot available. Performing Organization Address City/State/Zipcode Ph one Number [facility] [address] [place] [address] documented in this encounter Visit Diagnoses Diagnosis Chronic diastolic heart failure (HCC) Chronic diastolic heart failure documented in this encounter
--- OUTSIDE RECORDS SUMMARY | 2019-09-27 18:16 | XMS REPORT | Encounter Summary ---
Author Author [facility] Organization [facility] Address Unknown Phone Unavailable Care Team Providers Care General Manager Name Role Phone Carla Wilson MD PCP Naima Field MD Unavailable Winnie Jorge MD Unavailable Emiliano Rodriguez GENERAL UTILITY MAINTENANCE REPAIRER-COOK SOUP 7 Felisa Sneed MD 3 Reason for Visit * Reason Comments Labs Only Encounter Details Care Team Description Date Type Department Janell Matos Labs Only 06/01/2019 Documentation [facility] [address] [facility] [place] [address] Social History Date Tobacco Use Types Packs/Day [...] impairment: Yes documented as of this encounter Plan of Treatment Not on filedocumented as of this encounter Procedures Comments Procedure Name Priority Date/Time Associated Diag nosis BASIC METABOLIC PANEL Routine 05/30/2019 Chronic diastolic heart failure (HCC) documented in [...] [facility] eGFR [facility] [place] Anion Gap 12 5 - 14 [facility] Specimen Blood - Blood Narrative Performed At This result has an attachment that is n ot available. Performing Organization Address City/State/Zipcode Ph one Number [facility] [address] [place] [address] documented in this encounter Visit Diagnoses Diagnosis Chronic diastolic heart failure (HCC) Chronic diastolic heart failure documented in this encounter
--- OUTSIDE RECORDS SUMMARY | 2019-09-27 18:16 | XMS REPORT | Encounter Summary ---
Author Author [facility] Organization [facility] Address Unknown Phone Unavailable Care Team Providers Care Expediter Name Role Phone Carla Wilson MD PCP Naima Field MD Unavailable Winnie Jorge MD Unavailable Emiliano Rodriguez MUSICIAN INSTRUMENTAL-HOME CARE ASSISTANT 7 Felisa Sneed MD 3 Reason for Visit * Reason Comments Medication Refill Encounter Details Care Team Description Date Type Department Felisa Sneed MD [address] [facility] [id number] [place], [place] [id number] Medication Refill 05/01/2019 Refill [facility] [address] [facility] [id number] [place] [address] Social History Date Tobacco Use Types Packs/Day [...]
--- OUTSIDE RECORDS SUMMARY | 2019-09-27 18:16 | XMS REPORT | Encounter Summary ---
Author Author [facility] Organization [facility] Address Unknown Phone Unavailable Care Team Providers Care Brand Specialist Name Role Phone Carla Wilson MD PCP Naima Field MD Unavailable Winnie Jorge MD Unavailable Emiliano Rodriguez ELEVATOR OPERATOR-CRYSTAL GROWING TECHNICIAN 7 Felisa Sneed MD 3 Reason for Visit * Reason Comments Medication Refill Encounter Details Care Team Description Date Type Department Felisa Sneed MD [address] [facility] [id number] [place], [place] [id number] Medication Refill 05/14/2019 Refill [facility] [address] [facility] [id number] [place] [address] Social History Date Tobacco Use Types Packs/Day [...]
--- OUTSIDE RECORDS SUMMARY | 2019-09-27 18:16 | XMS REPORT | Encounter Summary ---
Author Author [facility] Organization [facility] Address Unknown Phone Unavailable Care Team Providers Care Crayon Molding Machine Operator Name Role Phone Carla Wilson MD PCP Naima Field MD Unavailable Winnie Jorge MD Unavailable Emiliano Rodriguez DATA ENTRY ASSOCIATE-INTERNET PROJECT MANAGER 7 Felisa Sneed MD 3 Reason for Visit * Reason Comments Labs Only Encounter Details Care Team Description Date Type Department [place], Leslee Labs Only 04/13/2019 Documentation [facility] [address] [facility] [place] [address] Social History Date Tobacco Use Types Packs/Day [...] Priority Date/Time Associated Diag nosis CBC Routine 04/12/2019 COMPREHENSIVE METABOLIC Routine 04/12/2019 PANEL PROTIME INR (PT) Routine 04/10/2019 documented in this encounter Results * COMPREHENSIVE METABOLIC PANEL (04/12/2019) Sodium 142 [facility] Potassium 4.0 [facility] Chloride 110 (H) 98 - 107 [facility] CO2 21 [facility] Blood Urea 28 (H) 7 - 18 [facility] Creatinine 1.90 (H) 0.60 - 1.30 [facility] Glucose 120 (H) 70 - 105 [facility] Calcium 8.8 [facility] Total Protein 6.1 (L) 6.4 - 8.2 [facility] Total Bilirubin 0.7 [facility] Albumin 3.3 [facility] Alk Phosphatase 59 [facility] AST (SGOT) 16 [facility] ALT (SGPT) 8 [facility] eGFR Non 26 [facility] Taiwanese eGFR OTHER OUTSIDE Taiwanese [facility] Anion Gap 11 [facility] Specimen Blood - Blood Narrative Performed At This result has an attachment that is n ot available. Performing Organization Address City/State/[facility] Ph one Number OTHER [facility] * CBC (04/12/2019) White Blood 3.4 (L) 4.3 - 11.0 [facility] OUT[facility] Cells [facility] RBC 2.59 (L) 4.35 - 5.85 [facility] Hemoglobin 8.2 (L) 11.5 - 16.0 [facility] Hematocrit 24 (L) 35 - 52 [facility] MCV 93 [facility] MCH 32 OTHER OUT[facility] LAB MCHC 34 [facility] Platelet Count 96 (L) 130 - 400 [facility] MPV 10.4 [facility] RDW 14.2 [facility] Specimen Blood - Blood Performing Organization Address City/State/[facility] Ph one Number OTHER [facility] * PROTIME INR (PT) (04/10/2019) INR 1.0 [facility] Specimen Blood - Blood Performing Organization Address City/[facility] Ph one Number OTHER OUTSIDE LAB documented in this encounter Visit Diagnoses Not on filedocumented in this encounter
--- OUTSIDE RECORDS SUMMARY | 2019-09-27 18:16 | XMS REPORT | Encounter Summary ---
Author Author [facility] Organization [facility] Address Unknown Phone Unavailable Care Team Providers Care Roller Picker Name Role Phone Carla Wilson MD PCP Naima Field MD Unavailable Winnie Jorge MD Unavailable Emiliano Rodriguez TRUCK DRIVER HEAVY-ENGINEERING INSPECTOR 7 Felisa Sneed MD 3 Reason for Visit * Reason Comments Erroneous encounter-disregard Encounter Details Care Team Description Date Type Department Pat Combs RN Erroneous encounter-disregard 04/25/2019 Telephone [facility] [address] [facility] [place] [address] Social History Date Tobacco Use Types Packs/Day [...]
--- OUTSIDE RECORDS SUMMARY | 2019-09-27 18:16 | XMS REPORT | Encounter Summary ---
Author Author [facility] Organization [facility] Address Unknown Phone Unavailable Care Team Providers Care Wire Insulator Name Role Phone Carla Wilson MD PCP Naima Field MD Unavailable Winnie Jorge MD Unavailable Emiliano Rodriguez ATTENDANT COIN OPERATED LAUNDRY-ELECTRICAL SYSTEMS DESIGN ENGINEER 7 Felisa Sneed MD 3 Encounter Details Care Team Description Date Type Department Rina Ruano MA 03/29/2019 Documentation [facility] [id number] [place] [address] Social History Date Tobacco Use Types Packs/Day [...] Procedure Name Priority Date/Time Associated Diag nosis BNP (B-TYPE NATRIURETIC Routine 03/28/2019 Heart disease PEPTI) Chronic diastolic heart failure (HCC) COMPREHENSIVE METABOLIC Routine 03/28/2019 Chroni c diastolic heart PANEL failure (HCC) CKD documented in this encounter Results * BNP (B-TYPE NATRIURETIC PEPTI) (03/28/2019) B Type 215.2 (H) <100.0 [facility] Natriuretic Peptide BNP NT pro [facility] Specimen Blood - Blood Performing Organization Address [facility] Ph one Number [facility] [address] [place] [address] * COMPREHENSIVE METABOLIC PANEL (03/28/2019) Sodium 140 [facility] Potassium 4.4 [facility] Chloride 109 (H) 98 - 107 [facility] CO2 23 [facility] Blood Urea 19 (H) 7 - 18 [facility] Nitrogen Creatinine 1.67 (H) 0.60 - 1.30 [facility] Glucose 154 (H) 70 - 105 [facility] Calcium 9.3 [facility] Total Protein 7.0 [facility] Total Bilirubin 0.5 [facility] Albumin 3.5 [facility] Alk Phosphatase 82 [facility] AST (SGOT) 19 [facility] ALT (SGPT) 9 [facility] eGFR Non 31 [facility] eGFR [facility] Spanish Anion Gap 8 [facility] BUN/Creatinine 11 [facility] Ratio Specimen Blood - Blood Performing Organization Address [facility] Ph one Number [facility] [address] [place] [address] documented in this encounter Visit Diagnoses Diagnosis Chronic diastolic heart failure (HCC) Chronic diastolic heart failure CKD Chronic kidney disease, Stage IV (sever e) Heart disease Heart disease, unspecified documented in this encounter
--- OUTSIDE RECORDS SUMMARY | 2019-09-27 18:16 | XMS REPORT | Encounter Summary ---
Author Author [facility] Organization [facility] Address Unknown Phone Unavailable Care Team Providers Care Design Consultant Name Role Phone Carla Wilson MD PCP Naima Field MD Unavailable Winnie Jorge MD Unavailable Emiliano Rodriguez WHOLESALE BUYER-INDUSTRIAL CONTROLLER 7 Felisa Sneed MD 3 Reason for Referral * Consult, Test & Treat (Routine) Referred By Contact Referred To Contact Status Reason Specialty Diagnoses / Procedures Felisa Sneed MD [address] [place] [id number] New Request Diagnoses Heart disease P rocedures REQUEST FOR CARDIOLOGY APPOINTMENT Reason for Visit * Reason Comments Cardiac Eval 3 month recheck * Consult, Test & Treat (Routine) Referred By Contact Referred To Contact Status Reason Specialty Diagnoses / Procedures Felisa Sneed MD [address] [place] [id number] New Request Procedures REQUEST FOR CARDIOLOGY APPOINTMENT Encounter Details Care Team Description Date Type Department Felisa Sneed MD [address] [place] [address] [phone] Cardiac Eval (3 month recheck) 07/05/2019 Office Visit [facility] [address] [address] Social History Date Tobacco Use Types Packs/Day [...] Time Taken Comments Vital Sign 112/40 07/05/2019 8:40 AM SPRAY MAKER Blood Pressure 77 07/05/2019 8:40 AM SPRAY MAKER Pulse 36.4 C (97.5 F) 07/05/2019 8:40 AM SPRAY MAKER Temperature - - Respiratory Rate 100% 07/05/2019 8:40 AM SPRAY MAKER Oxygen Saturation - - Inhaled Oxygen Concentration 93.6 kg (206 lb 6.4 oz) 07/05/2019 8:40 AM SPRAY MAKER Weight 162.6 cm (5' 4") 07/05/2019 8:40 AM SPRAY MAKER Height 35.43 07/05/2019 8:40 AM SPRAY MAKER Body Mass Index documented in this encounter [...] this encounter Patient Instructions * Patient Instructions* Janell Matos - 07/05/2019 9:00 AM SPRAY MAKER Will see Roland today. Med changes today: increase bumex to 2mg twice a day. Metolazone 5mg daily Mondays and , 1 hour before morning bumex, with in structions to only take if weight is above 195 pounds. Please log you blood pressure, heart rate, and daily weight in the [employer] walker. Labs standing monthly with routine CBC: BNP, BMP, Mg Return in 3-4 months. Heart Failure Education Summary You have been [...] does not resolve with rest or nitroglycerin [place], foamy mucus with cough and shortness of breath A continuous rapid or irregular heartbeat Passing out or fainting Stroke symptoms such as sudden numbness or weakness on one side of your face, arm, or leg or sudden confusion, trouble speaking or vision changes Heart Failure Y MAKER documented in this encounter Progress Notes * Felisa Sneed MD - 07/05/2019 9:00 AM SPRAY MAKER Date of Service: 07/05/2019 Deborah Fields is a 64 y.o. female. CRYS Cabrera returns for follow-up in the advanced heart failure clinic in [place]. As you recall, she is now 64 years old, and I follow her for diastolic heart f ailure, but she has complex medical history including stable coronary disease, p aroxysmal atrial fib, GAVE/cirrhosis with transfusion-dependent anemia, chronic kidney disease, and several other comorbidities as listed in her problem as grayson soares. She returns to see me today stating her breathing is okay but her appetite h as been off, she does still require transfusions, most recently got some RBCs . She has had progressive decline both in her functional status and her mental status. She states she often is talking funny, mind is cloudy, and is un able to participate as much as she would like in her activities of daily living. She was recently hospitalized for an episode of profound confusion and weakness when she was unable to get off of the toilet before . She was evalua edgardo for sepsis, but no infection was found. In the end she ended up holding her Benadryl and promethazine which was thought to be contributing to her shortness of breath. She returns to see me today at least 15 pounds volume up since last visit Vitals: 07/05/19 0840 BP: 112/40 Pulse: 77 Temp: 36.4 C (97.5 F) SpO2: 100% Weight: 93.6 kg (206 lb 6.4 oz) Height: 1.626 m (5' 4") Body mass index is 35.43 kg/m. Past Medical History Patient Active Problem List Diagnosis Date Noted CKD 09/30/2018 Morbid obesity (HCC) 06/01/2018 Acute on chronic diastolic heart failure due to coronary artery disease (HCC ) 03/31/2018 Chronic diastolic heart failure ([facility]) 03/31/2018 Long's esophagus 03/30/2018 Left leg cellulitis 03/29/2018 Pleural effusion on left 03/26/2018 Essential hypertension 02/23/2018 DELROY (acute kidney injury) ([facility]) 02/18/2018 CAD (coronary artery disease), elem coronary artery 02/16/2018 02/16/18: CABG x4 (PRIDE [...] 11/13/2017 Added automatically from request for surgery [id number] Review of Systems Constitution: Negative. HENT: Negative. Eyes: Negative. Cardiovascular: Negative. Respiratory: Positive for cough. Endocrine: Negative. Hematologic/Lymphatic: Negative. Skin: Negative. Musculoskeletal: Negative. Gastrointestinal: Positive for nausea and vomiting. Genitourinary: Negative. Neurological: Negative. Psychiatric/Behavioral: Negative. Allergic/Immunologic: Negative. Physical Exam BP 112/40 (BP Source: Arm, Left Upper) | Pulse 77 | Temp 36.4 C (97.5 F) | Ht 1.626 m (5' 4") | Wt 93.6 kg (206 lb 6.4 oz) | SpO2 100% | BMI 35.43 kg/ m BP Readings from Last 3 Encounters: 07/05/19 112/40 07/05/19 112/40 03/08/19 144/62 Pulse Readings from Last 3 Encounters: 07/05/19 77 07/05/19 77 03/08/19 83 Wt Readings from Last 8 Encounters: 07/05/19 93.4 kg (206 lb) 07/05/19 93.6 kg (206 lb 6.4 oz) 03/08/19 85.3 kg (188 lb) 03/08/19 85.3 kg (188 lb) 03/08/19 85.4 kg (188 lb 3.2 oz) 01/04/19 92.2 kg (203 lb 3.2 oz) 11/30/18 86.2 kg (190 lb) 11/10/18 88 kg (194 lb) Constitutional: She appears well-developed and well-nourished. HENT: Head: Normocephalic. Mouth/Throat: Oropharynx is clear and moist. Eyes: Conjunctivae are normal. Neck: Normal range of motion. JVP 9 cm of water. Normal carotid pulses. Cardiovascular: Normal rate, regular [...] motion and muscular tone. She exhibits 2+ edema with no tenderness. Neurological: She is alert and oriented to person, place, and time. No focal def icits. Skin: Skin is warm. No erythema. Psychiatric: She has a normal mood and affect. Judgment, behavior, and thought c ontent normal. Cardiovascular Studies Problems Addressed Today Encounter Diagnoses Name Primary? Chronic diastolic heart failure (HCC) Yes PAF (paroxysmal atrial fibrillation) (HCC) Heart disease Essential hypertension Coronary artery disease involving elem coronary artery of elem heart wit hout angina pectoris Assessment and Plan Today we will double her Bumex to 2 mg twice daily. Additionally, I will have h er take metolazone 2 days a week 1 hour before Bumex in an attempt to more aggre ssively keep her fluid status in line and treat her volume overload today. She should only take this second booster diuretic if weight remains above 195 pounds . She is otherwise warm and normotensive with stable NYHA functional class III symptoms. She has had borderline hypotension and dizzy spells, so I am hesitant to make any additional blood pressure medication changes at this time. She is scheduled to see Roland Hernández later this morning, in our palliative care clinic . He will have hopefully good insight into her complex medical situation with m naveentiple comorbidities and multiple organs at risk with progressive decline. It would be a good opportunity to reassess her goals of care and assess if she need s more help in the home setting. I do note that her has a relatively ne w diagnosis of heart failure and is following with Dr. Sosa in [place] [facility], and his ejection fraction is severely reduced with ongoing evaluation of the etiology. At any rate, they certainly have medical complexity and merit close attention with frequent follow-ups to make sure they continue to do okay with their health problems. In terms of her mental status, I do not think low output explains this, I agree with initiation of lactulose as way to clear toxins and hopefully improve her me ntal status. She will continue to follow in our liver clinic. For her atrial fibrillation and hypertension, I will make no changes today. She is not on anticoagulation due to life-threatening GI bleed history. Thank you for allowing me to participate in the care of this patient. Please do not hesitate to contact me should you have any questions or concerns. Felisa Sneed MD, PhD Advanced Heart Failure and Transplant Cardiology Pager [phone] I spent 25 minutes with the patient today including approximately 15 minutes in counseling on her heart disease. We reviewed the above treatment plan, went ove r risks/benefits/alternatives to the therapies, and all questions were answered to her satisfaction. Current Medications (including today's revisions) bumetanide (BUMEX) [...] tablet Take 1 mg by mouth daily. vbihwtht-vcohgujcb-B-manganese 500-400-2-0.33 mg cap Take 500 mg by [...] (1) TAB LET BY MOUTH TWICE DAILY metoprolol tartrate (LOPRESSOR) 25 mg tablet Take [...] 6 hours as nee ded for Pain. Y MAKER documented in this encounter Plan of Treatment Order Schedule Name Type Priority Associated Diag noses Every 4 Weeks Auto for [address] arting 07/05/2019 until 01/02/2021, 1 completed CBC Lab Routine Chronic diastol ic heart failure (HCC) PAF (paroxysmal atrial fibrillation) (HCC) Heart disease Every 4 Weeks Auto for [address] arting 07/05/2019 until 01/02/2021, 1 completed BNP (B-TYPE NATRIURETIC Lab Routine Chroni c diastolic heart PEPTI) failure (HCC) PAF (paroxysmal atrial fibrillation) (HCC) Heart disease Every 4 Weeks Auto for [address] arting 07/05/2019 until 01/02/2021, 1 completed BASIC METABOLIC PANEL Lab Routine Chronic diastolic heart failure (HCC) PAF (paroxysmal atrial fibrillation) (HCC) Heart disease Every 4 Weeks Auto for [address] arting 07/05/2019 until 01/02/2021, 1 completed MAGNESIUM Lab Routine Chronic diastol ic heart failure (HCC) PAF (paroxysmal atrial fibrillation) (HCC) Heart disease Expected: 07/12/2019 (Approximate), Expi res: 07/05/2020 BASIC METABOLIC PANEL Lab Routine Chronic diastolic heart failure (HCC) PAF (paroxysmal atrial fibrillation) (HCC) Heart disease documented as of this encounter Results * MAGNESIUM (09/26/2019) Magnesium 2.6 (H) 1.6 - 2.4 [facility] MAIN [facility] Specimen Blood - Blood Narrative Performed At This result has an attachment that is n ot available. Performing Organization Address City/[facility] Ph one Number MAIN LAB [address] [place] [address] * BASIC METABOLIC PANEL (09/26/2019) Sodium 141 [facility] Potassium 4.6 [...] [facility] MAIN [facility] eGFR [facility] French Anion Gap 9 [facility] BUN/Creatinine 19 [facility] Ratio Specimen Blood - Blood Performing Organization Address City/[facility] Ph one Number MAIN LAB [address] [place] [address] * BNP (B-TYPE NATRIURETIC PEPTI) (09/26/2019) B Type 376.1 (H) <100.0 [facility] MAIN [facility] Natriuretic Peptide BNP NT pro [facility]IN [facility] Specimen Blood - Blood Performing Organization Address [facility] Ph one Number [facility] MAIN [facility] [address] [place] [address] * CBC (09/26/2019) Pathologist [facility] White Blood 3.8 (L) 4.3 - 11.0 [...] Specimen Blood - Blood Performing Organization Address [facility] Ph one Number [facility] MAIN [facility] [address] [place] [address] documented in this encounter Visit Diagnoses Diagnosis Chronic diastolic heart failure (HCC) Chronic diastolic heart failure PAF (paroxysmal atrial fibrillation) (H CC) Atrial fibrillation Heart disease Heart disease, unspecified Essential hypertension Unspecified essential hypertension Coronary artery disease involving nativ e coronary artery of elem heart without angina pectoris documented in this encounter
--- OUTSIDE RECORDS SUMMARY | 2019-09-27 18:16 | XMS REPORT | Encounter Summary ---
Author Author [facility] Organization [facility] Address Unknown Phone Unavailable Care Team Providers Care Talent Acquisition Sourcer Name Role Phone Carla Wilson MD PCP Naima Field MD Unavailable Winnie Jorge MD Unavailable Emiliano Rodriguez JAVASCRIPT WEB DEVELOPER-DOPE SPRAYER 7 Felisa Sneed MD 3 Reason for Visit * Reason Comments Labs Only Encounter Details Care Team Description Date Type Department Janell Matos Labs Only 04/25/2019 Documentation [facility] [address] [facility] [place] [address] Social History Date Tobacco Use Types Packs/Day [...] Name Priority Date/Time Associated Diag nosis CBC AND DIFF Routine 04/18/2019 FERRITIN Routine 04/18/2019 COMPREHENSIVE METABOLIC Routine 04/18/2019 PANEL documented in this encounter Results * CBC AND DIFF (04/18/2019) White Blood 5.6 4.3 - 11 OTHER OUTSIDE Cells LAB RBC 2.55 (L) 4.35 - 5.85 OTHER OUTSIDE LAB Hemoglobin 8.1 (L) 11.5 - 16 OTHER OUTSIDE LAB Hematocrit 25 (L) 35 - 52 OTHER OUTSIDE LAB MCV 96 80 - 99 OTHER OUTSIDE LAB MCH 32 25 - 34 OTHER OUTSIDE LAB MCHC 33 32 - 36 OTHER OUTSIDE LAB Platelet Count 128 130 - 400 OTHER OUTSIDE LAB MPV 10.4 7.4 - 10.4 OTHER OUTSIDE LAB RDW 14 10 - 14.5 OTHER OUTSIDE LAB Neutrophils 67 42 - 75 OTHER OUTSIDE LAB Absolute 3.7 1.8 - 7.8 OTHER OUTSIDE Neutrophil LAB Count Lymphocytes 18 12 - 44 OTHER OUTSIDE LAB Absolute Lymph 1.0 1.0 - 4.0 OTHER OUTSIDE Count LAB Monocytes 11 0 - 10 OTHER OUTSIDE LAB Absolute 0.6 0.0 - 0.1 OTHER OUTSIDE Monocyte Count LAB Eosinophil 4 0 - 10 OTHER OUTSIDE LAB Absolute 0.2 0.0 - 0.1 OTHER OUTSIDE Eosinophil LAB Count Basophils 0 0 - 10 OTHER OUTSIDE LAB Absolute 0.0 0.0 - 0.1 OTHER OUTSIDE Basophil Count LAB Specimen Blood - Blood Performing Organization Address City/[facility] Ph one Number OTHER OUTSIDE LAB * FERRITIN (04/18/2019) Ferritin 504.1 (H) 20 - 177 OTHER OUTSIDE LAB Specimen Blood - Blood Performing Organization Address City/[facility] Ph one Number OTHER OUTSIDE LAB * COMPREHENSIVE METABOLIC PANEL (04/18/2019) Sodium 135 135 - 145 OTHER OUTSIDE LAB Potassium 4.9 3.6 - 5.0 OTHER OUTSIDE LAB Chloride 106 98 - 107 OTHER OUTSIDE LAB CO2 21 21 - 32 OTHER OUTSIDE LAB Blood Urea 40 (H) 7 - 18 OTHER OUTSIDE Nitrogen LAB Creatinine 2.51 (H) 0.60 - 1.30 OTHER OUTSIDE LAB Glucose 207 (H) 70 - 105 OTHER OUTSIDE LAB Calcium 8.9 8.5 - 10.1 OTHER OUTSIDE LAB Total Protein 6.6 6.4 - 8.2 OTHER OUTSIDE LAB Total Bilirubin 0.6 0.1 - 1.0 OTHER OUTSIDE LAB Albumin 3.4 3.2 - 4.5 OTHER OUTSIDE LAB Alk Phosphatase 64 40 - 136 OTHER OUTSIDE LAB AST (SGOT) 17 5 - 34 OTHER OUTSIDE LAB ALT (SGPT) 9 0 - 55 OTHER OUTSIDE LAB eGFR Non 19 (L) >60 OTHER OUTSIDE LAB Kittitian eGFR OTHER OUTSIDE Kittitian LAB Anion Gap 8 5 - 14 OTHER OUTSIDE LAB Specimen Blood - Blood Narrative Performed At This result has an attachment that is n ot available. Performing Organization Address City/State/Zipcode Ph one Number OTHER OUTSIDE LAB documented in this encounter Visit Diagnoses Not on filedocumented in this encounter
--- OUTSIDE RECORDS SUMMARY | 2019-09-27 18:16 | XMS REPORT | Encounter Summary ---
Author Author [facility] Organization [facility] Address Unknown Phone Unavailable Care Team Providers Care Automatic Profile Shaper Operator Name Role Phone Carla Wilson MD PCP Naima Field MD Unavailable Winnie Jorge MD Unavailable Emiliano Rodriguez APRN-SEPTIC TANK SERVICE TECHNICIAN 7 Felisa Sneed MD 3 Encounter Details Care Team Description Date Type Department Oliverio Mcneil LPN 04/13/2019 Telephone [facility] [address] [place] [address] Social History Date Tobacco Use Types Packs/Day [...] Telephone Encounter - Oliverio Mcneil LPN - 04/13/2019 3:26 PM CDT Pt was admitted at via [facility], pt was discharged yesterday. Was admi tted for persistent nausea and vomiting. Patient Status patient is an established patient with [facility]. Signs and Symptoms No cardiac symptoms Medication Review Patient reports taking all prescribed medications as ordered and not missing any doses will send records request Date Weight B/P Pulse 04/13 185 119/56 87 From previous call Date Weight B/P Pulse 03/23 03/22 193 03/21 197.7 Date Weight B/P Pulse 03/15 189.0 150/65 92 03/14 187.6 145/68 92 03/13 185.6 150/71 91 03/12 186.8 142/84 87 03/11 03/10 184.6 152/72 88 * Telephone Encounter - Oliverio Mcneil LPN - 04/13/2019 3:00 PM CDT Pt called wanting to discuss weight gain and also that she was hospitalized. Brian led and LM to cb. documented in this encounter Plan of Treatment Not on filedocumented as of this encounter Visit Diagnoses Not on filedocumented in this encounter
--- OUTSIDE RECORDS SUMMARY | 2019-09-27 18:16 | XMS REPORT | Encounter Summary ---
Author Author [facility] Organization [facility] Address Unknown Phone Unavailable Care Team Providers Care Pile Driver Operator Barge Mounted Name Role Phone Carla Wilson MD PCP Naima Field MD Unavailable Winnie Jorge MD Unavailable Emiliano Rodriguez LACQUER SPRAYER-CRIMINAL COURT JUDGE 7 Felisa Sneed MD 3 Reason for Visit * Reason Comments Labs Only Encounter Details Care Team Description Date Type Department Janell Matos Labs Only 05/25/2019 Documentation [facility] [address] [facility] [place] [address] Social History Date Tobacco Use Types Packs/Day [...] Associated Diag nosis BNP (B-TYPE NATRIURETIC Routine 05/16/2019 PEPTI) documented in this encounter Results * BNP (B-TYPE NATRIURETIC PEPTI) (05/16/2019) B Type 273.1 (H) >100 OTHER OUTSIDE Natriuretic LAB Peptide Specimen Blood - Blood Narrative Performed At This result has an attachment that is n ot available. Performing Organization Address City/State/Zipcode Ph one Number OTHER OUTSIDE LAB documented in this encounter Visit Diagnoses Not on filedocumented in this encounter
--- OUTSIDE RECORDS SUMMARY | 2019-09-27 18:26 | XMS REPORT ---
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9 Active 23 2296277 Problem Persistent atrial fibrillation I48.1 Active 401922998 Problem Reflux gastritis K29.60 Active 729 75862 Problem Psoriasis L40.9 Active 3062220 Problem 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 A ctive 693004032 Problem Mixed hyperlipidemia E78.2 Active 190437210 Problem residential 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 Z79.4 Active 822734314 Problem Congestive heart failure, un specified HF chronicity, unspecified heart failure type I50.9 Active 70582032 Problem Oxygen dependent Z99.81 Active 931 139442457 Problem Chronic kidney disease, stage III (moderate) N18.3 Active 247222184 Problem Insomnia due to medical condition G47.01 Active 46936261367602 Problem BMI 35.0-35.9,adult Z68.35 Active 402552488 Problem Non-insulin dependent type 2 diabetes mellitus E11 .9 Active 63530728 Problem BMI 38.0-38.9,adult Z68.38 Active 332265503527879 Problem Essential hypertension I10 Active 87720890 Problem Angina pectoris syndrome I20.9 Activ e 626982522 Problem Altered mental status, unspecified altered mental stat us type R41.82 Active 832481609 Problem 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 Active 814711111 Problem Symptoms of depression F32.9 Active 279781556 Problem BMI 34.0-34.9,adult Z68.34 Active 245014294 ALLERGIES No Information ENCOUNTERS Encounter Location Date Diagnosis [place] [address] [address] Jul, [place] [address] [address] Jul, Type 2 diabetes mellitus with other circ ulatory complications E11.59 [place] [address] [address] 18 Jul, 2019 [place] [address] [address] Jul, 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 ; Ess ential hypertension I10 ; Typical atrial flutter I48.3 ; Insomnia due to medical condition G47.01 ; Chronic kidney disease, stage III (moderate) N18.3 ; Type 2 diabetes mellitus with other specified complication E11.69 ; Congestive heart failure, unspecified HF chronicity, unspecified heart failure type I50.9 ; Altered mental status, unspecified altered mental status type R41.82 and BMI 38.0-38.9,adult Z68.38 [place] [address] [address] Jul, [place] [address] [address] Jun, [address] [address] Jun, [place] [address] [address] Jun, Screening for breast cancer Z12.[address] [address] 16 Jun, 2019 Type 2 diabetes mellitus with other circ ulatory complications E11.59 ; Type 2 diabetes mellitus with other specified complication E11.69 ; exterminator 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 Z79.4 ; Essential hypertension I10 ; Chronic kidney disease, stage III (moderate) N18.3 and BMI 35.0-35.9,adult Z68.35 [place] [address] [place] [id number] [place] [address] 07 Jun, 2019 Type 2 diabetes mellitus with other spec ified complication E11.69 [address] [place] [address] 06 Jun, 2019 Hepatic encephalopathy K72.9 0 ; Confusion R41.0 ; Fall, initial encounter W19.XXXA and BMI 35.0-35.9,adult Z68.35 [address] [place] [address] 05 Jun, 2019 [place] [address] [address] Jun, [place] [address] [address] May, Symptoms of depression F32.9 [place] [address] [address] May, Altered mental status, unspecified alter ed mental status type R41.82 [place] [address] [address] May, [place] [address] [address] May, [place] [address] [address] May, Symptoms of depression F32.9 [place] [address] [address] May, Nausea and vomiting, intractability of v omiting not specified, unspecified vomiting type R11.2 ; Essential hypertension I10 and BMI 34.0- 34.9,adult Z68.[address] [address] May, [place] [address] [address] May, [place] [address] [address] Apr, Symptoms of depression F32.[address] [address] Apr, Acute cystitis without hematuria N30.00 ; Acquired hypothyroidism E03.9 ; Chronic kidney disease, stage III (moderate) N18.3 ; Altered mental status, unspecified altered mental status type R41.82 and 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 [address] Apr, [address] [address] Apr, Acute cystitis with hematuria N30.01 ; A ltered mental status, unspecified altered mental status type R41.82 ; 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 ; Insomnia due to medical condition G47.01 and BMI 32.0-32.9,adult Z68.[address] [address] Apr, [address] [address] Apr, [address] [address] Mar, Nausea and vomiting, intractability of v omiting not specified, unspecified vomiting type R11.[address] [address] Mar, Type 2 diabetes mellitus with other spec ified complication E11.[address] [address] Mar, [id number] [place] [address] Feb, Non-insulin dependent type 2 diabetes me llitus E11.9 ; Encounter for immunization Z23 ; Coronary artery disease involving tanacross coronary artery of tanacross heart without angina pectoris I25.10 ; 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 and Congestive heart failure, unspecified HF chronicity, unspecified heart failure type I50.9 [place] [address] [address] Feb, [place] [address] [address] Jan, 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 ; Per sistent atrial fibrillation I48.1 ; Coronary artery disease involving tanacross coronary artery of tanacross heart without angina pectoris I25.10 ; Essential hypertension I10 ; Nausea and vomiting, intractability of vomiting not specified, unspecified vomiting type R11.2 and Type 2 diabetes mellitus with other specified complication E11.69 [place] [address] [address] Jan, [place] [address] [address] Dec, [place] [address] [address] Dec, Chronic kidney disease, stage III (moder ate) N18.3 [place] [address] [address] Dec, Chronic kidney disease, stage III (moder ate) N18.3 [place] [address] [address] Dec, Type 2 diabetes mellitus with other spec ified complication E11.69 ; Type 2 diabetes mellitus with other circulatory complications E11.59 ; Essential hypertension I10 and 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0 and Acute cystitis with hematuria N30.01 [place] [address] [address] October, [place] [address] [address] October, [place] [address] [address] October, [place] [address] [address] October, Type 2 diabetes mellitus with other spec ified complication E11.69 [place] [address] [address] October, Type 2 diabetes mellitus with other spec ified complication E11.69 [place] [address] [address] Sep, [place] [address] [address] Aug, Acquired hypothyroidism E03.9 [place] [address] [address] Aug, [place] [address] [address] Aug, [facility] [address] [place] [id number] [place] [address] Jul, Acquired hypothyroidism E03.9 [facility] [address] [address] Jul, [facility] [address] [address] Jul, [facility] [address] [address] Jul, [facility] [address] [address] Jul, S/P CABG x 4 Z95.1 [place] [address] [address] Jun, 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 ; Oxy gen dependent Z99.81 ; Shortness of breath R06.02 ; Hypoxia R09.02 ; Coronary artery disease involving tanacross coronary artery of tanacross heart without angina pectoris I25.10 ; Hepatic cirrhosis, unspecified hepatic cirrhosis type, unspecified whether ascites present K74.60 and Pleural effusion J90 [place] [address] [place] [id number] [place] [address] Jun, Congestive heart failure, unspecified HF chronicity, unspecified heart failure type I50.9 ; Type 2 diabetes mellitus with other circulatory complications E11.59 and S/P CABG x 4 Z95.1 [facility] [address] [place] [id number] [place] [address] Jun, [facility] [address] [address] Jun, [facility] [address] [address] May, [facility] [address] [address] Apr, Non-intractable cyclical vomiting with n ausea G43.A0 [place] [address] [address] Apr, Coronary artery disease involving tanacross coronary artery of tanacross heart without angina pectoris I25.10 ; Non-intractable cyclical vomiting with nausea G43.A0 ; Encounter for immunization Z23 ; Microcytic anemia D50.9 ; S/P CABG x 4 Z95.1 and BMI 40.0-44.9, adult Z68.[address] [address] Apr, [place] [address] [address] Apr, [address] [address] Apr, Essential hypertension I10 ; S/P CABG (c oronary artery bypass graft) Z95.1 ; Non-insulin dependent type 2 diabetes mellitus E11.9 ; Coronary artery disease involving tanacross coronary artery of tanacross heart without angina pectoris I25.10 ; 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 ; Persistent atrial fibrillation I48.1 and BMI 40.0-44.9, adult Z68.[address] [address] Mar, [address] [address] Mar, [facility] [address] [facility] [id number] [place] [address] Mar, Pain in left leg M79.605 and BMI 40.0-44.9, adult Z68.[address] [address] 17 Feb, 2018 S/P CABG x 4 Z95.1 ; 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 ; Typical atrial flutter I48.3 ; Candidiasis of mouth B37.0 ; Vaginal candidiasis B37.3 ; Type 2 diabetes mellitus with other specified complication E11.69 and residential 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 Z79.4 [place] [id number] [place] [address] Jan, [place] [address] [address] Jan, [place] [address] [address] Jan, [place] [address] [address] Jan, Non-insulin treated type 2 diabetes benigno itus E11.9 ; Essential hypertension I10 ; Microcytic anemia D50.9 ; Persistent atrial fibrillation I48.1 and BMI 40.0-44.9, adult Z68.41 [place] [address] [address] Jan, [place] [address] [address] Dec, [place] [address] [address] Dec, Acquired hypothyroidism E03.9 [place] [address] [address] Dec, [place] [address] [address] Dec, [facility] [id number] [place] [address] Nov, Lower abdominal pain R10.30 and BMI 45.0-49.9, adult Z68.42 [place] [address] [address] Nov, BMI 45.0-49.9, adult Z68.42 [place] [address] [address] October, Congestive heart failure, unspecified HF chronicity, unspecified heart failure type I50.9 ; Acquired hypothyroidism E03.9 and BMI 45.0-49.9, adult Z68.42 [place] [address] [address] October, Shortness of breath R06.02 [place] [address] [address] October, [place] [address] [address] October, [place] [address] [address] October, Essential hypertension I10 ; Coronary ar maida disease involving tanacross coronary artery of tanacross heart without angina pectoris I25.10 ; Angina pectoris syndrome I20.9 ; 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 and Persistent atrial fibrillation I48.[address] [address] Sep, Coronary artery disease involving tanacross coronary artery of tanacross heart without angina pectoris I25.10 [place] [address] [address] Sep, [place] [address] [address] Sep, Angina pectoris syndrome I20.9 ; Paroxys mal atrial fibrillation I48.0 ; Microcytic anemia D50.9 ; 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 and 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 [address] Aug, Non-insulin dependent type 2 diabetes me llitus E11.9 ; Microcytic anemia D50.9 ; Essential hypertension I10 and Acquired hypothyroidism E03.9 [place] [address] [address] Jul, [place] [address] [address] Jul, [place] [address] [address] Jun, [place] [address] [address] May, [place] [address] [address] May, History of anemia Z86.[address] [address] May, [place] [address] [address] May, [address] [address] May, Non-insulin treated type 2 diabetes benigno itus E11.[address] [address] Apr, Abdominal pain, left upper quadrant R10. 12 ; Essential hypertension I10 ; Non-intractable cyclical vomiting with nausea G43.A0 ; Microcytic anemia D50.9 ; Mixed hyperlipidemia E78.2 and BMI 45.0-49.9, adult Z68.[address] [address] Apr, [address] [address] Apr, Non-insulin treated type 2 diabetes benigno itus E11.9 ; Essential hypertension I10 and Acquired hypothyroidism E03.[address] [address] Mar, Encounter for immunization Z23 [address] [address] Mar, [address] [address] 25 Feb, 2017 Microcytic anemia D50.9 ; Pain of left g reat toe M79.675 and Reflux gastritis K29.[address] [address] 05 Feb, 2017 Coronary artery disease involving tanacross coronary artery of tanacross heart without angina pectoris I25.10 and Acquired hypothyroidism E03.9 [place] [id number] [place] [address] Jan, Psoriasis L40.9 ; Paroxysmal atrial fibr illation I48.0 ; Shortness of breath R06.02 and Microcytic anemia D50.9 [place] [address] [address] Dec, [address] [address] Dec, [address] [address] Dec, Coronary artery disease involving tanacross coronary artery of tanacross heart without angina pectoris I25.[address] [address] Nov, Therapeutic drug monitoring Z51.81 ; Ess ential hypertension I10 ; Microcytic anemia D50.9 and Shortness of breath R06.[address] [address] Nov, Acquired hypothyroidism E03.[address] [address] October, [address] [address] Sep, Coronary artery disease involving tanacross coronary artery of tanacross heart without angina pectoris I25.[address] [address] Aug, [address] [address] Aug, Essential hypertension I10 [address] [address] Jul, Acquired hypothyroidism E03.9 ; Essentia l hypertension I10 ; Non- insulin treated type 2 diabetes mellitus E11.9 and Coronary artery disease involving tanacross coronary artery of tanacross heart without angina pectoris I25.[address] [address] Jul, [facility] [address] [facility] [place] [address] 15 Jul, 2016 Angina pectoris syndrome I20.9 and Essen tial hypertension I10 [facility] [address] [facility] [place] [address] 03 Jul, 2016 [facility] [address] [address] 09 Jun, 2016 [facility] [address] [id number] [place] [address] May, Abscess L02.91 [place] [address] [address] 22 Apr, 2016 Non-insulin dependent type 2 diabetes me llitus E11.9 ; Essential hypertension I10 ; Acquired hypothyroidism E03.9 ; History of anemia Z86.2 and Coronary artery disease involving tanacross coronary artery of tanacross heart without angina pectoris I25.10 [place] [address] [place] [id number] [place] [address] 14 Apr, 2016 IMMUNIZATIONS No Known Immunizations SOCIAL HISTORY Never Assessed REASON FOR VISIT Rx from lab results PLAN OF CARE Activity Details Pending Test TSH VITAL SIGNS MEDICATIONS Medication Instructions Dosage Frequency Start Date End Date Duration S tatus Levothyroxine Sodium 175 mcg Orally Once a day 1 tablet on an empty stomach in the morning 24h 90 days Active RESULTS No Results PROCEDURES Procedure Date Ordered Result Body Site LAB NOT BILLED BY [facility] September 08, 2018 INSTRUCTIONS MEDICATIONS ADMINISTERED No Known Medications MEDICAL (GENERAL) HISTORY Type Description Date Medical History hypertension Medical History Hypothyrodism Medical History Type 2 diabetes mellitus without complic ations Medical History Anemia Medical History Chronic atrial [...] Hospitalization History [facility] for lasix and blood produc ts 08/09/17 Hospitalization History Blood/blood products 11/2017 Hospitalization History low blood pressure high blood sugar. [facility] NESS ICU 12/27/2018 Hospitalization History UTI, Hypotension 12/2018 Hospitalization History Dehydration, N/V, Blood Transfusion 03/2019 Hospitalization History Possible pneumonia 07/25-07/28/2019
--- OUTSIDE RECORDS SUMMARY | 2019-09-27 18:34 | XMS REPORT | Continuity of Care Document ---
Author Organization Unknown Address Unknown Phone Unavailable Allergies Active Description Code Type Severity Reaction Onset Reported/Identified Relationship to Patient Clinical Status Yes methotrexate [id number] Drug Allergy Unknown N/A 03/24/2014 Yes cefadroxil [id number] Drug Allerg y Mild N/A 01/01/2017 Yes diltiazem [id number] Drug Allergy Unknown mouth burning a 02/23/2017 Yes Pdsongj-Afk-Ned Reductase Inhibitor [id number] Drug Allergy Moderate GI UPSET, N/V 11/06/2017 Yes Sulfa (Sulfonamide Antibiotics) [id number] Drug Allergy Unknown N/A 019 Medications There is no data. 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 SHIREEN AGARWAL Ot I12.9 HYPERTENSIVE CHRONIC KIDNEY DISEASE W ST SHIREEN AGARWAL Ot I25.10 ATHSCL HEART DISEASE OF [place] CORONARY SHIREEN AGARWAL Ot I48.91 UNSPECIFIED ATRIAL FIBRILLATION SHIREEN AGARWAL Ot N18.3 CHRONIC KIDNEY DISEASE, STAGE 3 (MODERAT SHIREEN AGARWAL Ot Z79.899 OTHER POOL LIFEGUARD (CURRENT) DRUG THERAPY 05/14/1018 BRANDEN HAIDER MD, Ot D50.9 IRON DEFICIENCY ANEMIA, UNSPECIFIED 05/14/1018 BRANDEN HAIDER MD, Ot E03.9 HYPOTHYROIDISM, UNSPECIFIED 05/14/1018 BRANDEN HIADER MD Ot 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 05/14/1018 BRANDEN HAIDER MD Ot I12.9 HYPERTENSIVE CHRONIC KIDNEY DISEASE W ST 05/14/1018 MELIZA KHOURY, BRANDEN Ot I25.10 ATHSCL HEART DISEASE OF [place] CORONARY 05/14/1018 MELIZA KHOURY, BRANDEN Ot I48.91 UNSPECIFIED ATRIAL FIBRILLATION 05/14/1018 MELIZA KHOURY, BRANDEN Ot N18.3 CHRONIC KIDNEY DISEASE, STAGE 3 (MODERAT 05/14/1018 MELIZA KHORUY, BRANDEN Ot Z79.899 OTHER POOL LIFEGUARD (CURRENT) DRUG THERAPY 05/14/1557 SHIREEN AGARWAL N Ot D50.0 IRON DEFICIENCY ANEMIA SECONDARY TO BLOO 05/14/1557 SHIREEN AGARWAL N Ot E03.9 HYPOTHYROIDISM, UNSPECIFIED 05/14/1557 SHIREEN AGARWAL N Ot 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 05/14/1557 SHIREEN AGARWAL Ot E53.8 DEFICIENCY OF OTHER SPECIFIED B GROUP 05/14/1557 SHIREEN AGARWAL N Ot I12.9 HYPERTENSIVE CHRONIC KIDNEY DISEASE W ST 05/14/1557 SHIREEN AGARWAL N Ot I25.10 ATHSCL HEART DISEASE OF [place] CORONARY 05/14/1557 SHIREEN AGARWAL N Ot I48.91 UNSPECIFIED ATRIAL FIBRILLATION 05/14/1557 SHIREEN AGARWAL N Ot K31.819 ANGIODYSPLASIA OF STOMACH AND DUODENUM W 05/14/1557 SHIREEN AGARWAL N Ot K74.60 UNSPECIFIED CIRRHOSIS OF LIVER 05/14/1557 SHIREEN AGARWAL N Ot N18.3 CHRONIC KIDNEY DISEASE, STAGE 3 (MODERAT 05/14/1557 SHIREEN AGARWAL N Ot Z79.899 OTHER POOL LIFEGUARD (CURRENT) DRUG THERAPY 05/22/2010 Ot 250.00 AWA B NALLELY WO COMPL, TYPE II OR UNSPEC TY 05/22/2010 Ot 272.4 HYPE RLIPIDEMIA NEC/NOS 05/22/2010 Ot 401.9 HYPE RTENSION NOS 05/22/2010 Ot 414.01 COR ONARY ATHEROSCLEROSIS OF [place] CORON 05/22/2010 Ot 427.31 ATR IAL FIBRILLATION 03/02/2014 LINDA KHOURY FACFernanda, ALI FACP CCDS Ot 244.9 HYPOTHYROIDISM NOS [...] CORONARY ATHEROSCLEROSIS DUE TO [place]CIF[place] 03/02/2014 LINDA GONZALESC, ALI FACP CCDS Ot 696.1 OTHER PSORIASIS 03/02/2014 LINDA KHOURY FACC, ALI FACP CCDS Ot 786.05 SHORTNESS OF BREATH 03/02/2014 LINDA KHOURY FACC, ALI FACP CCDS Ot 786.59 CHEST PAIN NEC 03/02/2014 LINDA KHOURY FACC, ALI FACP CCDS Ot V45.82 PERCUTANEOUS TRANSLUM CORON ANGIOPLASTY 03/02/2014 LINDA KHOURY FACC, ALI FACP CCDS Ot V58.69 OT MED,LT,CURRENT USE 03/24/2014 TONIE CRAWFORD MD Ot 211. 1 BENIGN NEOPLASM STOMACH 03/24/2014 TONIE CRAWFORD MD Ot 211. 3 BENIGN NEOPLASM LG BOWEL 03/24/2014 TONIE CRAWFORD MD Ot 280. 9 IRON DEFIC ANEMIA NOS 03/24/2014 TONIE CRAWFORD MD Ot V76. 51 SCREEN MAL NEOP-COLON 05/16/2014 ANY, BOBAN N [...] ANY, BOBAN N Ot 414.01 09/28/2014 ANY, SHIREEN N Ot 585.3 09/28/2014 ANY, SHIREEN N Ot 244.9 09/28/2014 ANY, SHIREEN N Ot 285.9 09/28/2014 ANY, SHIREEN N Ot 414.01 09/28/2014 ANY, SHIRENE N Ot 585.3 09/29/2014 ANY, SHIREEN N Ot 244.9 09/29/2014 ANY, SHIREEN N Ot 285.9 09/29/2014 ANY, SHIREEN N Ot 414.01 09/29/2014 ANY, SHIREEN N Ot 585.3 10/05/2014 Ot 401.9 10/05/2014 Ot 272.4 10/05/2014 Ot 250.00 10/05/2014 ROB CHICHI Neville PROP ATTENDANT Ot 574.20 10/05/2014 ROB CHICHI H PROP ATTENDANT Ot 789.1 10/05/2014 LINDA KHOURY FACC, ALI FACP CCDS Ot 401.9 10/05/2014 LINDA KHOURY FACC, ALI FACP CCDS Ot 414.00 10/05/2014 LINDA KHOURY FACC, ALI FACP CCDS Ot 427.31 10/05/2014 TY KHOURY, TONIE Diaz Ot V72. 84 10/05/2014 LINDA KHOURY FACC, ALI FACP CCDS Ot 250.00 10/05/2014 LINDA KHOURY FACC, ALI FACP CCDS Ot 401.9 10/05/2014 LINDA KHOURY FACC, ALI FACP CCDS Ot 427.0 10/05/2014 LINDA KHOURY FACC, ALI FACP CCDS Ot 785.1 10/05/2014 Ot 244.9 10/05/2014 Ot 280.9 10/05/2014 Ot 585.3 10/05/2014 Ot V58.69 10/05/2014 Ot 250.02 10/05/2014 ANY, SHIREEN N Ot 244.9 10/05/2014 ANY, SHIREEN N Ot 285.9 10/05/2014 ANY, SHIREEN N Ot 414.01 10/05/2014 ANY, SHIREEN N Ot 585.3 10/05/2014 Ot 401.9 10/05/2014 Ot 272.4 10/05/2014 Ot 250.00 10/05/2014 HCICHI RIVAS PROP ATTENDANT Ot 574.20 10/05/2014 CHICHI RIVAS PROP ATTENDANT Ot 789.1 10/05/2014 LINDA KHOURY FAC, ALI FACP CCDS Ot 401.9 10/05/2014 LINDA KHOURY FAC, ALI FACP CCDS Ot 414.00 10/05/2014 LINDA KHOURY FACC, ALI FACP CCDS Ot 427.31 10/05/2014 TY KHOURY, TONIE Diaz Ot V72. 84 10/05/2014 LINDA KHOURY FAC, ALI FACP CCDS Ot 250.00 10/05/2014 LINDA KHOURY FAC, ALI FACP CCDS Ot 401.9 10/05/2014 LINDA KHOURY FAC, ALI FACP CCDS Ot 427.0 10/05/2014 LINDA KHOURY FAC, ALI FACP CCDS Ot 785.1 10/05/2014 Ot 244.9 10/05/2014 Ot 280.9 10/05/2014 Ot 585.3 10/05/2014 Ot V58.69 10/05/2014 Ot 250.02 10/05/2014 ANY, BOBAN N Ot 244.9 10/05/2014 ANY, BOBAN N Ot 285.9 10/05/2014 ANY, BOBAN N Ot 414.01 10/05/2014 ANY, BOBAN N Ot 585.3 11/03/2014 HARVEY KHOUYR, CLAUDE S Ot 574.20 11/11/2014 ANY, BOBAN N [...] Ot E03.9 03/21/2015 OVI KHOURY, TORI-FRANKIE Ot E11.6 5 03/21/2015 OVI KHOURY, TORI-FRANKIE Ot E78.5 03/21/2015 OVI KHOURY, TORI-FRANKIE Ot I10 03/21/2015 OVI KHOURY, TORI-FRANKIE Ot E03.9 03/21/2015 OVI KHOURY, TORI-FRANKIE Ot E11.6 5 03/21/2015 OVI KHOURY, TORI-FRANKIE Ot E78.5 03/21/2015 OVI KHOURY, TORI-FRANKIE Ot I10 03/22/2015 OVI KHOURY, TORI-FRANKIE Ot E03.9 03/22/2015 OVI KHOURY, TORI-FRANKIE Ot E11.6 5 03/22/2015 OVI KHOURY, TORI-FRANKIE Ot E78.5 03/22/2015 OVI KHOURY, TORI-FRANKIE Ot I10 04/02/2015 OVI KHOURY, TORI-FRANKIE Ot E03.9 04/02/2015 OVI KHOURY, TORI-FRANKIE Ot E11.6 5 04/02/2015 OVI KHOURY, TORI-FRANKIE Ot E78.5 04/02/2015 OVI KHOURY, TORI-FRANKIE Ot I10 04/13/2015 OVI KHOURY, TORI-FRANKIE Ot E03.9 04/13/2015 OVI KHOURY, TORI-FRANKIE Ot E11.9 04/13/2015 OVI KHOURY, TORI-FRANKIE Ot E78.5 04/13/2015 WU DIOR MD Ot I10 04/27/2015 ANY, JJAN N Ot D64.9 04/27/2015 ANY, BOBAN N Ot E03.9 04/27/2015 ANY, BOBBLU N Ot E11.9 04/27/2015 ANY, BOBAN N Ot I12.9 04/27/2015 ANY, BOBAN N Ot I25.10 04/27/2015 ANY, BOBAN N Ot I48.91 04/27/2015 ANY, BOBBLU N Ot N18.3 04/27/2015 ANY, BOBAN N Ot Z79.899 06/13/2015 ANY, BOBAN N Ot 244.9 HYPOTHYROIDISM NOS 06/13/2015 ANY, BOBAN N Ot 250.00 DIAB NALLELY WO COMPL, TYPE II OR UNSPEC TY 06/13/2015 ANY BOBAN N Ot 285.9 ANEMIA NOS 06/13/2015 ANY BOBAN N Ot 427.31 ATRIAL FIBRILLATION 06/13/2015 ANY BOBAN N Ot 585.3 CHRONIC KIDNEY DISEASE, STAGE III (MODER 06/13/2015 ANY, BOBAN N Ot D64.9 ANEMIA, UNSPECIFIED 06/13/2015 ANY, BOBAN N Ot E03.9 HYPOTHYROIDISM, UNSPECIFIED 06/13/2015 ANY, BOBAN N Ot E11.9 TYPE 2 DIABETES MELLITUS WITHOUT COMPLIC 06/13/2015 ANY, BOBAN N Ot I12.9 HYPERTENSIVE CHRONIC KIDNEY DISEASE W ST 06/13/2015 ANY BOBAN N Ot I25.10 ATHSCL HEART DISEASE OF [place] CORONARY 06/13/2015 ANYSHIREEN N Ot I48.91 UNSPECIFIED ATRIAL FIBRILLATION 06/13/2015 ANY, BOBAN N Ot N18.3 CHRONIC KIDNEY DISEASE, STAGE 3 (MODERAT 06/13/2015 ANYJJAN N Ot V58.69 OTH MED,LT,CURRENT USE 06/13/2015 ANY BOBAN N Ot Z79.899 OTHER POOL LIFEGUARD (CURRENT) DRUG THERAPY 09/27/2015 ANY BOBAN N Ot D64.9 09/27/2015 ANY, BOBAN N Ot E03.9 09/27/2015 ANY, BOBAN N Ot E11.9 09/27/2015 ANY, BOBAN N Ot I12.9 09/27/2015 SHIREEN AGARWAL N Ot I25.10 09/27/2015 SHIREEN AGARWAL N Ot I48.91 09/27/2015 SHIREEN AGARWAL N Ot N18.3 09/27/2015 SHIRENE AGARWAL N Ot Z79.899 09/27/2015 Ot 401.9 09/27/2015 Ot 272.4 09/27/2015 Ot 250.00 09/27/2015 CHICHI RIVAS PROP ATTENDANT Ot 574.20 09/27/2015 CHICHI RIVAS PROP ATTENDANT Ot 789.1 09/27/2015 LINDA KHOURY FACC, ALI FACP CCDS Ot 401.9 09/27/2015 LINDA KHOURY FACC, ALI FACP CCDS Ot 414.00 09/27/2015 LINDA KHOURY FACC, ALI FACP CCDS Ot 427.31 09/27/2015 TY KHOURY, TONIE Diaz Ot V72. 84 09/27/2015 LINDA KHOURY FACC, ALI FACP CCDS Ot 250.00 09/27/2015 LINDA KHOURY FACC, ALI FACP CCDS Ot 401.9 09/27/2015 LINDA KHOURY FACC, ALI FACP CCDS Ot 427.0 09/27/2015 LINDA KHOURY FACC, ALI FACP CCDS Ot 785.1 09/27/2015 Ot 244.9 09/27/2015 Ot 280.9 09/27/2015 Ot 585.3 09/27/2015 Ot V58.69 09/27/2015 Ot 250.02 09/27/2015 HARVEY KHOURY, CLAUDE S Ot 574.20 09/27/2015 HARVEY KHOURY, JONELLE S Ot 585.2 09/27/2015 OVI KHOURY, TORI-FRANKIE Ot E03.9 09/27/2015 OVI KHOURY, TORI-FRANKIE Ot E11.6 5 09/27/2015 OVI KHOURY, TORI-FRANKIE Ot E78.5 09/27/2015 OVI KHOURY, TORI-FRANKIE Ot I10 09/27/2015 OVI KHOURY, TORI-FRANKIE Ot E03.9 09/27/2015 OVI KHOURY, TORI-FRANKIE Ot E11.9 09/27/2015 OVI KHOURY, TORI-FRANKIE Ot E78.5 09/27/2015 OVI KHOURY, WU Ot I10 09/27/2015 ANY, BOBAN N Ot [...] ATHSCL HEART DISEASE OF [place] CORONARY 10/09/2015 ANY, BOBAN N Ot I48.91 UNSPECIFIED ATRIAL FIBRILLATION 10/09/2015 ANY, BOBAN N Ot N18.3 CHRONIC KIDNEY DISEASE, STAGE 3 (MODERAT 10/09/2015 ANY, BOBAN N Ot Z79.899 OTHER JAIL (CURRENT) DRUG THERAPY 10/17/2015 ANY, BOBAN N Ot D64.9 ANEMIA, UNSPECIFIED 10/17/2015 ANY, BOBAN N Ot E03.9 HYPOTHYROIDISM, UNSPECIFIED 10/17/2015 ANY, BOBAN N Ot 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 10/17/2015 ANY, BOBAN N Ot I12.9 HYPERTENSIVE CHRONIC KIDNEY DISEASE W ST 10/17/2015 ANY, BOBAN N Ot I25.10 ATHSCL HEART DISEASE OF [place] CORONARY 10/17/2015 ANY, BOBAN N Ot I48.91 UNSPECIFIED ATRIAL FIBRILLATION 10/17/2015 ANY, BOBAN N Ot N18.3 CHRONIC KIDNEY DISEASE, STAGE 3 (MODERAT 10/17/2015 ANY, BOBAN N Ot Z79.899 OTHER POOL LIFEGUARD (CURRENT) DRUG THERAPY 10/19/2015 SHIREEN AGARWAL N Ot D64.9 ANEMIA, UNSPECIFIED 10/19/2015 SHIREEN AGARWAL N Ot E03.9 HYPOTHYROIDISM, UNSPECIFIED 10/19/2015 SHIREEN AGARWAL N Ot 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 10/19/2015 SHIREEN AGARWAL N Ot I12.9 HYPERTENSIVE CHRONIC KIDNEY DISEASE W ST 10/19/2015 SHIREEN AGARWAL N Ot I25.10 ATHSCL HEART DISEASE OF [place] CORONARY 10/19/2015 SHIREEN AGARWAL N Ot I48.91 UNSPECIFIED ATRIAL FIBRILLATION 10/19/2015 SHIREEN AGARWAL N Ot N18.3 CHRONIC KIDNEY DISEASE, STAGE 3 (MODERAT 10/19/2015 SHIREEN AGARWAL N Ot Z79.899 OTHER POOL LIFEGUARD (CURRENT) DRUG THERAPY 11/16/2015 SHIREEN AGARWAL N Ot D50.9 IRON DEFICIENCY ANEMIA, UNSPECIFIED 11/16/2015 SHIREEN AGARWAL N Ot Z79.899 OTHER POOL LIFEGUARD (CURRENT) DRUG THERAPY 12/03/2015 SHIREEN AGARWAL N Ot D50.9 IRON DEFICIENCY ANEMIA, UNSPECIFIED 12/03/2015 SHIREEN AGARWAL N Ot Z79.899 OTHER JAIL (CURRENT) DRUG THERAPY 01/03/2016 Ot 272.4 HYPE RLIPIDEMIA NEC/NOS 01/03/2016 Ot 250.00 AWA B NALLELY WO COMPL, TYPE II OR UNSPEC TY 01/03/2016 CHICHI RIVAS PROP ATTENDANT Ot 574.20 CHOLELITHIASIS NOS 01/03/2016 CHICHI RIVAS PROP ATTENDANT Ot 789.1 HEPATOMEGALY 01/03/2016 LINDA KHOURY FACC, ARNIE FACP CCDS Ot 401.9 HYPERTENSION NOS 01/03/2016 LINDA KHOURY FACC, ARNIE FACP CCDS Ot 414.00 CORON ATHEROSCLER NOS TYPE VESSEL, NATIV 01/03/2016 LINDA KHOURY FACC, ALI FACP CCDS Ot 427.31 ATRIAL FIBRILLATION 01/03/2016 TY KHOURY, TONIE Diaz Ot V72. 84 EXAM PRE-OPERATIVE NOS 01/03/2016 LINDA KHOURY FACC, ALI FACP CCDS Ot 250.00 DIAB NALLELY WO COMPL, TYPE II OR UNSPEC TY 01/03/2016 LINDA KHOURY FACC, ALI FACP CCDS Ot 401.9 HYPERTENSION NOS 01/03/2016 LINDA KHOURY [facility], ARNIE [facility] CCDS Ot 427.0 PAROX ATRIAL TACHYCARDIA 01/03/2016 LINDA KHOURY FAC, ARNIE [facility] CCDS Ot 785.1 PALPITATIONS 01/03/2016 Ot 244.9 HYPO THYROIDISM NOS 01/03/2016 Ot 280.9 IRON DEFIC ANEMIA NOS 01/03/2016 Ot 585.3 BLENDING MACHINE OPERATOR LEANDRO KIDNEY DISEASE, STAGE III (MODER 01/03/2016 Ot V58.69 OTH MED,LT,CURRENT USE 01/03/2016 Ot 250.02 AWA B NALLELY WO COMPL, TYPE II OR UNSPEC TY 01/03/2016 HARVEY KHOURY, CLAUDE S Ot 574.20 CHOLELITHIASIS NOS 01/03/2016 HARVEY KHOURY, CLAUDE S Ot 585.2 CHRONIC KIDNEY DISEASE, STAGE II (MILD) 01/03/2016 OVI KHOURY, WU Ot E03.9 HYPOTHYROIDISM, UNSPECIFIED 01/03/2016 OVI KHOURY, WU Ot E11.6 5 TYPE 2 DIABETES MELLITUS WITH HYPERGLYCE 01/03/2016 OVI KHOURY, TORI-FRANKIE Ot E78.5 HYPERLIPIDEMIA, UNSPECIFIED 01/03/2016 OVI KHOURY, TORI-FRANKIE Ot I10 ESSENTIAL (PRIMARY) HYPERTENSION 01/03/2016 OVI KHOURY, TORI-FRANKIE Ot E03.9 HYPOTHYROIDISM, UNSPECIFIED 01/03/2016 OVI KHOURY, TORI-FRANKIE Ot E11.9 TYPE 2 DIABETES MELLITUS WITHOUT COMPLIC 01/03/2016 OVI KHOURY, TORI-FRANKIE Ot E78.5 HYPERLIPIDEMIA, UNSPECIFIED 01/03/2016 OVI KHOURY, TORI-FRANKIE Ot I10 ESSENTIAL (PRIMARY) HYPERTENSION 01/03/2016 SHIREEN AGARWAL Ot D64.9 ANEMIA, UNSPECIFIED 01/03/2016 SHIREEN AGARWAL Ot E03.9 HYPOTHYROIDISM, UNSPECIFIED 01/03/2016 SHIREEN AGARWAL Ot 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 01/03/2016 SHIREEN AGARWAL Ot I12.9 HYPERTENSIVE CHRONIC KIDNEY DISEASE W ST 01/03/2016 SHIREEN AGARWAL Ot I25.10 ATHSCL HEART DISEASE OF [place] CORONARY 01/03/2016 SHIREEN AGARWAL Ot I48.91 UNSPECIFIED ATRIAL FIBRILLATION 01/03/2016 ANY, BOBAN N Ot N18.3 CHRONIC KIDNEY DISEASE, STAGE 3 (MODERAT 01/03/2016 ANYSHIREEN BALDWIN N Ot Z79.899 OTHER POOL LIFEGUARD (CURRENT) DRUG THERAPY 01/03/2016 SHIREEN AGARWAL N Ot D50.9 IRON DEFICIENCY ANEMIA, UNSPECIFIED 01/03/2016 SHIREEN AGARWAL N Ot Z79.899 OTHER JAIL (CURRENT) DRUG THERAPY 01/03/2016 SHIREEN AGARWAL N Ot D64.9 ANEMIA, UNSPECIFIED 01/03/2016 ANYSHIREEN BALDWIN N Ot E03.9 HYPOTHYROIDISM, UNSPECIFIED 01/03/2016 ANYSHIREEN BALDWIN N Ot 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 01/03/2016 SHIREEN AGARWAL N Ot I12.9 HYPERTENSIVE CHRONIC KIDNEY DISEASE W ST 01/03/2016 SHIREEN AGARWAL N Ot I25.10 ATHSCL HEART DISEASE OF [place] CORONARY 01/03/2016 SHIREEN AGARWAL N Ot I48.91 UNSPECIFIED ATRIAL FIBRILLATION 01/03/2016 SHIREEN AGARWAL N Ot N18.3 CHRONIC KIDNEY DISEASE, STAGE 3 (MODERAT 01/03/2016 SHIREEN AGARWAL N Ot Z79.899 OTHER POOL LIFEGUARD (CURRENT) DRUG THERAPY 01/03/2016 Ot 272.4 HYPE RLIPIDEMIA NEC/NOS 01/03/2016 Ot 250.00 AWA B NALLELY WO COMPL, TYPE II OR UNSPEC TY 01/03/2016 CHICHI RIVAS PROP ATTENDANT Ot 574.20 CHOLELITHIASIS NOS 01/03/2016 CHICHI RIVAS PROP ATTENDANT Ot 789.1 HEPATOMEGALY 01/03/2016 LINDA KHOURY FACC, ARNIE FACP CCDS Ot 401.9 HYPERTENSION NOS 01/03/2016 LINDA KHOURY FACC, ARNIE FACP CCDS Ot 414.00 CORON ATHEROSCLER NOS TYPE VESSEL, NATIV 01/03/2016 LINDA KHOURY FACC, ARNIE FACP CCDS Ot 427.31 ATRIAL FIBRILLATION 01/03/2016 TY KHOURY, TONIE Diaz Ot V72. 84 EXAM PRE-OPERATIVE NOS 01/03/2016 LINDA KHOURY FACC, ALI FACP CCDS Ot 250.00 DIAB NALLELY WO COMPL, TYPE II OR UNSPEC TY 01/03/2016 LINDA KHOURY FACC, ALI FACP CCDS Ot 401.9 HYPERTENSION NOS 01/03/2016 LINDA KHOURY FACC, ALI FAC CCDS Ot 427.0 PAROX ATRIAL TACHYCARDIA 01/03/2016 LINDA KHOURY FAC, ALI FACP CCDS Ot 785.1 PALPITATIONS 01/03/2016 Ot 244.9 HYPO THYROIDISM NOS 01/03/2016 Ot 280.9 IRON DEFIC ANEMIA NOS 01/03/2016 Ot 585.3 BLENDING MACHINE OPERATOR LEANDRO KIDNEY DISEASE, STAGE III (MODER 01/03/2016 Ot V58.69 OTH MED,LT,CURRENT USE 01/03/2016 Ot 250.02 AWA B NALLELY WO COMPL, TYPE II OR UNSPEC TY 01/03/2016 HARVEY KHOURY, CLAUDE S Ot 574.20 CHOLELITHIASIS NOS 01/03/2016 HARVEY KHOURY, CLAUDE Clement Ot 585.2 CHRONIC KIDNEY DISEASE, STAGE II (MILD) 01/03/2016 OVI KHOURY, WU Ot E03.9 HYPOTHYROIDISM, UNSPECIFIED 01/03/2016 OVI KHOURY, TORI-FRANKIE Ot E11.6 5 TYPE 2 DIABETES MELLITUS WITH HYPERGLYCE 01/03/2016 OVI KHOURY, TORI-FRANKIE Ot E78.5 HYPERLIPIDEMIA, UNSPECIFIED 01/03/2016 OVI KHOURY, TORI-FRANKIE Ot I10 ESSENTIAL (PRIMARY) HYPERTENSION 01/03/2016 OVI KHOURY, TORI-FRANKIE Ot E03.9 HYPOTHYROIDISM, UNSPECIFIED 01/03/2016 OVI KHOURY, TORI-FRANKIE Ot E11.9 TYPE 2 DIABETES MELLITUS WITHOUT COMPLIC 01/03/2016 OVI KHOURY, TORI-FRANKIE Ot E78.5 HYPERLIPIDEMIA, UNSPECIFIED 01/03/2016 OVI KHOURY, TORI-FRANKIE Ot I10 ESSENTIAL (PRIMARY) HYPERTENSION 01/03/2016 SHIREEN AGARWAL Ot D64.9 ANEMIA, UNSPECIFIED 01/03/2016 SHIREEN AGARWAL Ot E03.9 HYPOTHYROIDISM, UNSPECIFIED 01/03/2016 SHIREEN AGARWAL Ot 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 01/03/2016 SHIREEN AGARWAL Ot I12.9 HYPERTENSIVE CHRONIC KIDNEY DISEASE W ST 01/03/2016 SHIREEN AGARWAL Ot I25.10 ATHSCL HEART DISEASE OF [place] CORONARY 01/03/2016 SHIREEN AGARWAL Ot I48.91 UNSPECIFIED ATRIAL FIBRILLATION 01/03/2016 SHIREEN AGARWAL Ot N18.3 CHRONIC KIDNEY DISEASE, STAGE 3 (MODERAT 01/03/2016 SHIREEN AGARWAL Ot Z79.899 OTHER POOL LIFEGUARD (CURRENT) DRUG THERAPY 01/03/2016 SHIREEN AGARWAL Ot D50.9 IRON DEFICIENCY ANEMIA, UNSPECIFIED 01/03/2016 SHIREEN AGARWAL Ot Z79.899 OTHER JAIL (CURRENT) DRUG THERAPY 01/04/2016 Ot 272.4 HYPE RLIPIDEMIA NEC/NOS 01/04/2016 Ot 250.00 AWA B NALLELY WO COMPL, TYPE II OR UNSPEC TY 01/04/2016 CHICHI RIVAS PROP ATTENDANT Ot 574.20 CHOLELITHIASIS NOS 01/04/2016 CHICHI RIVAS PROP ATTENDANT Ot 789.1 HEPATOMEGALY 01/04/2016 LINDA KHOURY FACC, ALI FACP CCDS Ot 401.9 HYPERTENSION NOS 01/04/2016 LINDA KHOURY FACC, ALI FACP CCDS Ot 414.00 CORON ATHEROSCLER NOS TYPE VESSEL, NATIV 01/04/2016 LINDA KHOURY FACC, ALI FACP CCDS Ot 427.31 ATRIAL FIBRILLATION 01/04/2016 TY KHOURY, TONIE Diaz Ot V72. 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.3 BLENDING MACHINE OPERATOR LEANDRO KIDNEY DISEASE, STAGE III (MODER 01/04/2016 Ot V58.69 OTH MED,LT,CURRENT USE 01/04/2016 Ot 250.02 AWA B NALLELY WO COMPL, TYPE II OR UNSPEC TY 01/04/2016 HARVEY KHOURY, CLAUDE Clement Ot 574.20 CHOLELITHIASIS NOS 01/04/2016 HARVEY KHOURY, CLAUDE Clement Ot 585.2 CHRONIC KIDNEY DISEASE, STAGE II (MILD) 01/04/2016 OVI KHOURY, TORI-FRANKIE Ot E03.9 HYPOTHYROIDISM, UNSPECIFIED 01/04/2016 OVI KHOURY, TORI-FRANKIE Ot E11.6 5 TYPE 2 DIABETES MELLITUS WITH HYPERGLYCE 01/04/2016 OVI KHOURY, TORI-FRANKIE Ot E78.5 HYPERLIPIDEMIA, UNSPECIFIED 01/04/2016 OVI KHOURY, TORI-FRANKIE Ot I10 ESSENTIAL (PRIMARY) HYPERTENSION 01/04/2016 OVI KHOURY, JAYCOBFRANKIE Ot E03.9 HYPOTHYROIDISM, UNSPECIFIED 01/04/2016 OVI KHOURY, TORI-FRANKIE Ot E11.9 TYPE 2 DIABETES MELLITUS WITHOUT COMPLIC 01/04/2016 OVI KHOURY, TORI-FRANKIE Ot E78.5 HYPERLIPIDEMIA, UNSPECIFIED 01/04/2016 OVI KHOURY, TORI-FRANKIE Ot I10 ESSENTIAL (PRIMARY) HYPERTENSION 01/04/2016 JJ AGARWALAN N Ot D64.9 ANEMIA, UNSPECIFIED 01/04/2016 ANYJJ BALDWINAN N Ot E03.9 HYPOTHYROIDISM, UNSPECIFIED 01/04/2016 ANY, BOBAN N Ot 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 01/04/2016 ANY, BOBAN N Ot I12.9 HYPERTENSIVE CHRONIC KIDNEY DISEASE W ST 01/04/2016 ANY BOBAN N Ot I25.10 ATHSCL HEART DISEASE OF [place] CORONARY 01/04/2016 ANY, BOBAN N Ot I48.91 UNSPECIFIED ATRIAL FIBRILLATION 01/04/2016 ANY BOBAN N Ot N18.3 CHRONIC KIDNEY DISEASE, STAGE 3 (MODERAT 01/04/2016 ANY BOBAN N Ot Z79.899 OTHER POOL LIFEGUARD (CURRENT) DRUG THERAPY 01/04/2016 ANY BOBAN N Ot D50.9 IRON DEFICIENCY ANEMIA, UNSPECIFIED 01/04/2016 ANY, BOBAN N Ot Z79.899 OTHER POOL LIFEGUARD (CURRENT) DRUG THERAPY 01/07/2016 ANY, BOBAN N Ot D50.9 IRON DEFICIENCY ANEMIA, UNSPECIFIED 01/07/2016 ANY, BOBAN N Ot Z79.899 OTHER POOL LIFEGUARD (CURRENT) DRUG THERAPY 01/13/2016 ANY, BOBAN N Ot D50.9 IRON DEFICIENCY ANEMIA, UNSPECIFIED 01/13/2016 ANY, BOBAN N Ot Z79.899 OTHER POOL LIFEGUARD (CURRENT) DRUG THERAPY 08/05/2016 Ot 250.00 AWA B NALLELY WO COMPL, TYPE II OR UNSPEC TY 08/05/2016 CHICHI RIVAS PROP ATTENDANT Ot 574.20 CHOLELITHIASIS NOS 08/05/2016 CHICHI RIVAS PROP ATTENDANT Ot 789.1 HEPATOMEGALY 08/05/2016 LINDA KHOURY FACC, ALI FACP CCDS Ot 401.9 HYPERTENSION NOS 08/05/2016 LINDA KHOURY FACC, ALI FACP CCDS Ot 414.00 CORON ATHEROSCLER NOS TYPE VESSEL, NATIV 08/05/2016 LINDA KHOURY FACC, ALI FACP CCDS Ot 427.31 ATRIAL FIBRILLATION 08/05/2016 TY KHOURY, TONIE Diaz Ot V72. 84 EXAM PRE-OPERATIVE NOS 08/05/2016 LINDA KHOURY FACC, ALI FACP CCDS Ot 250.00 DIAB NALLELY WO COMPL, TYPE II OR UNSPEC TY 08/05/2016 LINDA KHOURY FACC, ALI FACP CCDS Ot 401.9 HYPERTENSION NOS 08/05/2016 LINDA KHOURY FACC, ALI FACP CCDS Ot 427.0 PAROX ATRIAL TACHYCARDIA 08/05/2016 LINDA KHOURY FACC, ALI FACP CCDS Ot 785.1 PALPITATIONS 08/05/2016 Ot 244.9 HYPO THYROIDISM NOS 08/05/2016 Ot 280.9 IRON DEFIC ANEMIA NOS 08/05/2016 Ot 585.3 BLENDING MACHINE OPERATOR LEANDRO KIDNEY DISEASE, STAGE III (MODER 08/05/2016 Ot V58.69 OTH MED,LT,CURRENT USE 08/05/2016 Ot 250.02 AWA Eduardo BROWNING WO COMPL, TYPE II OR UNSPEC TY 08/05/2016 HARVEY KHOURY, CLAUDE Clement Ot 574.20 CHOLELITHIASIS NOS 08/05/2016 HARVEY KHOURY, CLAUDE S Ot 585.2 CHRONIC KIDNEY DISEASE, STAGE II (MILD) 08/05/2016 OVI KHOURY, WU Ot E03.9 HYPOTHYROIDISM, UNSPECIFIED 08/05/2016 OVI KHOURY, WU Ot E11.6 5 TYPE 2 DIABETES MELLITUS WITH HYPERGLYCE 08/05/2016 OVI KHOURY, WU Ot E78.5 HYPERLIPIDEMIA, UNSPECIFIED 08/05/2016 OVI KHOURY, WU Ot I10 ESSENTIAL (PRIMARY) HYPERTENSION 08/05/2016 OVI KHOURY, WU Ot E03.9 HYPOTHYROIDISM, UNSPECIFIED 08/05/2016 OVI KHOURY, WU Ot E11.9 TYPE 2 DIABETES MELLITUS WITHOUT COMPLIC 08/05/2016 OVI KHOURY, WU Ot E78.5 HYPERLIPIDEMIA, UNSPECIFIED 08/05/2016 OVI KHOURY, WU Ot I10 ESSENTIAL (PRIMARY) HYPERTENSION 08/05/2016 ANY, BOBAN N Ot D64.9 ANEMIA, UNSPECIFIED 08/05/2016 ANY, BOBAN N Ot E03.9 HYPOTHYROIDISM, UNSPECIFIED 08/05/2016 ANY, BOBAN N Ot 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 08/05/2016 ANY, BOBAN N Ot I12.9 HYPERTENSIVE CHRONIC KIDNEY DISEASE W ST 08/05/2016 ANY, BOBAN N Ot I25.10 ATHSCL HEART DISEASE OF [place] CORONARY 08/05/2016 ANY, BOBAN N Ot I48.91 UNSPECIFIED ATRIAL FIBRILLATION 08/05/2016 ANY, BOBAN N Ot N18.3 CHRONIC KIDNEY DISEASE, STAGE 3 (MODERAT 08/05/2016 ANY, BOBAN N Ot Z79.899 OTHER POOL LIFEGUARD (CURRENT) DRUG THERAPY 09/15/2016 ANY, BOBAN N Ot D50.9 IRON DEFICIENCY ANEMIA, UNSPECIFIED 09/15/2016 ANY, BOBAN N Ot E03.9 HYPOTHYROIDISM, UNSPECIFIED 09/15/2016 ANY, BOBAN N Ot 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 09/15/2016 ANY, BOBAN N Ot I12.9 HYPERTENSIVE CHRONIC KIDNEY DISEASE W ST 09/15/2016 ANY, BOBAN N Ot I25.10 ATHSCL HEART DISEASE OF [place] CORONARY 09/15/2016 ANY, BOBAN N Ot I48.91 UNSPECIFIED ATRIAL FIBRILLATION 09/15/2016 ANY, BOBAN N Ot N18.3 CHRONIC KIDNEY DISEASE, STAGE 3 (MODERAT 09/15/2016 ANY, BOBAN N Ot Z79.899 OTHER [place] (CURRENT) DRUG THERAPY 09/17/2016 Ot 250.00 AWA B NALLELY WO COMPL, TYPE II OR UNSPEC TY 09/17/2016 CHICHI RIVAS PROP ATTENDANT Ot 574.20 CHOLELITHIASIS NOS 09/17/2016 CHICHI RIVAS PROP ATTENDANT Ot 789.1 HEPATOMEGALY 09/17/2016 LINDA KHOURY FACC, ALI FACP CCDS Ot 401.9 HYPERTENSION NOS 09/17/2016 LINDA KHOURY FACC, ALI FACP CCDS Ot 414.00 CORON ATHEROSCLER NOS TYPE VESSEL, NATIV 09/17/2016 LINDA KHOURY FACC, ALI FACP CCDS Ot 427.31 ATRIAL FIBRILLATION 09/17/2016 TY KHOURY, TONIE Diaz Ot V72. 84 EXAM PRE-OPERATIVE NOS 09/17/2016 LINDA KHOURY FACC, ALI FACP CCDS Ot 250.00 DIAB NALLELY WO COMPL, TYPE II OR UNSPEC TY 09/17/2016 LINDA KHOURY FACC, ALI FACP CCDS Ot 401.9 HYPERTENSION NOS 09/17/2016 LINDA KHOURY FACC, ALI FACP CCDS Ot 427.0 PAROX ATRIAL TACHYCARDIA 09/17/2016 LINDA KHOURY FACC, ALI FACP CCDS Ot 785.1 PALPITATIONS 09/17/2016 Ot 244.9 HYPO THYROIDISM NOS 09/17/2016 Ot 280.9 IRON DEFIC ANEMIA NOS 09/17/2016 Ot 585.3 BLENDING MACHINE OPERATOR LEANDRO KIDNEY DISEASE, STAGE III (MODER 09/17/2016 Ot V58.69 OTH MED,LT,CURRENT USE 09/17/2016 Ot 250.02 AWA B NALLELY WO COMPL, TYPE II OR UNSPEC TY 09/17/2016 HARVEY KHOURY, CLAUDE S Ot 574.20 CHOLELITHIASIS NOS 09/17/2016 HARVEY KHOURY, CLAUDE S Ot 585.2 CHRONIC KIDNEY DISEASE, STAGE II (MILD) 09/17/2016 OVI KHOURY, WU Ot E03.9 HYPOTHYROIDISM, UNSPECIFIED 09/17/2016 OVI KHOURY, WU Ot E11.6 5 TYPE 2 DIABETES MELLITUS WITH HYPERGLYCE 09/17/2016 OVI KHOURY, TORI-FRANKIE Ot E78.5 HYPERLIPIDEMIA, UNSPECIFIED 09/17/2016 OVI KHOURY, TORI-FRANKIE Ot I10 ESSENTIAL (PRIMARY) HYPERTENSION 09/17/2016 OVI KHOURY, WU Ot E03.9 HYPOTHYROIDISM, [...] 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 09/17/2016 ANY, BOBAN N Ot I12.9 HYPERTENSIVE CHRONIC KIDNEY DISEASE W ST 09/17/2016 ANY, BOBAN N Ot I25.10 ATHSCL HEART DISEASE OF [place] CORONARY 09/17/2016 ANY, BOBAN N Ot I48.91 UNSPECIFIED ATRIAL FIBRILLATION 09/17/2016 ANY, BOBAN N Ot N18.3 CHRONIC KIDNEY DISEASE, STAGE 3 (MODERAT 09/17/2016 ANY, BOBAN N Ot Z79.899 OTHER POOL LIFEGUARD (CURRENT) DRUG THERAPY 09/17/2016 ANYSHIREEN BALDWIN N Ot D50.9 IRON DEFICIENCY ANEMIA, UNSPECIFIED 09/17/2016 ANY, SHIREEN N Ot E03.9 HYPOTHYROIDISM, UNSPECIFIED 09/17/2016 ANY, BOBAN N Ot 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 09/17/2016 ANY, BOBAN N Ot I12.9 HYPERTENSIVE CHRONIC KIDNEY DISEASE W ST 09/17/2016 ANY, BOBAN N Ot I25.10 ATHSCL HEART DISEASE OF [place] CORONARY 09/17/2016 ANY, BOBBLU N Ot I48.91 UNSPECIFIED ATRIAL FIBRILLATION 09/17/2016 ANY, BOBAN N Ot N18.3 CHRONIC KIDNEY DISEASE, STAGE 3 (MODERAT 09/17/2016 ANY, BOBAN N Ot Z79.899 OTHER JAIL (CURRENT) DRUG THERAPY 09/17/2016 KIERAN KHOURY, BERNY Champion Ot I25.10 ATHSCL HEART DISEASE OF [place] CORONARY 09/17/2016 Ot 250.00 AWA B NALLELY WO COMPL, TYPE II OR UNSPEC TY 09/17/2016 CHICHI RIVAS PROP ATTENDANT Ot 574.20 CHOLELITHIASIS NOS 09/17/2016 CHICHI RIVAS PROP ATTENDANT Ot 789.1 HEPATOMEGALY 09/17/2016 LINDA KHOURY FACC, ARNIE FACP CCDS Ot 401.9 HYPERTENSION NOS 09/17/2016 LINDA KHOURY FACC, ARNIE FACP CCDS Ot 414.00 CORON ATHEROSCLER NOS TYPE VESSEL, NATIV 09/17/2016 LINDA KHOURY FACC, ALI FACP CCDS Ot 427.31 ATRIAL FIBRILLATION 09/17/2016 TY KHOURY, TONIE Diaz Ot V72. 84 EXAM PRE-OPERATIVE NOS 09/17/2016 LINDA KHOURY FACC, ALI FACP CCDS Ot 250.00 DIAB NALLELY WO COMPL, TYPE II OR UNSPEC TY 09/17/2016 LINDA MD FACC, ALI FACP CCDS Ot 401.9 HYPERTENSION NOS 09/17/2016 LINDA KHOURY FACC, ALI FACP CCDS Ot 427.0 PAROX ATRIAL TACHYCARDIA 09/17/2016 LINDA KHOURY FACC, ALI FACP CCDS Ot 785.1 PALPITATIONS 09/17/2016 Ot 244.9 HYPO THYROIDISM NOS 09/17/2016 Ot 280.9 IRON DEFIC ANEMIA NOS 09/17/2016 Ot 585.3 BLENDING MACHINE OPERATOR LEANDRO KIDNEY DISEASE, STAGE III (MODER 09/17/2016 Ot V58.69 OTH MED,LT,CURRENT USE 09/17/2016 Ot 250.02 AWA B NALLELY WO COMPL, TYPE II OR UNSPEC TY 09/17/2016 HARVEY KHOURY, CLAUDE S Ot 574.20 CHOLELITHIASIS NOS 09/17/2016 HARVEY KHOURY, CLAUDE S Ot 585.2 CHRONIC KIDNEY DISEASE, STAGE II (MILD) 09/17/2016 OVI KOHURY, WU Ot E03.9 HYPOTHYROIDISM, UNSPECIFIED 09/17/2016 OVI KHOURY, WU Ot E11.6 5 TYPE 2 DIABETES MELLITUS WITH HYPERGLYCE 09/17/2016 OVI KHOURY, WU Ot E78.5 HYPERLIPIDEMIA, UNSPECIFIED 09/17/2016 OVI KHOURY, WU Ot I10 ESSENTIAL (PRIMARY) HYPERTENSION 09/17/2016 OVI KHOURY, TORI-FRANKIE Ot E03.9 HYPOTHYROIDISM, UNSPECIFIED 09/17/2016 OVI KHOURY, TORI-FRANKIE Ot E11.9 TYPE 2 DIABETES MELLITUS WITHOUT COMPLIC 09/17/2016 WU DIOR MD Ot E78.5 HYPERLIPIDEMIA, UNSPECIFIED 09/17/2016 OVI KHOURY, TORI-FRANKIE Ot I10 ESSENTIAL (PRIMARY) HYPERTENSION 09/17/2016 SHIREEN AGARWAL Ot D64.9 ANEMIA, UNSPECIFIED 09/17/2016 SHIREEN AGARWAL Ot E03.9 HYPOTHYROIDISM, UNSPECIFIED 09/17/2016 ANY, BOBAN N Ot 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 09/17/2016 ANY, BOBAN N Ot I12.9 HYPERTENSIVE CHRONIC KIDNEY DISEASE W ST 09/17/2016 ANY, BOBAN N Ot I25.10 ATHSCL HEART DISEASE OF [place] CORONARY 09/17/2016 ANY, BOBAN N Ot I48.91 UNSPECIFIED ATRIAL FIBRILLATION 09/17/2016 ANY, BOBAN N Ot N18.3 CHRONIC KIDNEY DISEASE, STAGE 3 (MODERAT 09/17/2016 ANY BOBAN N Ot Z79.899 OTHER POOL LIFEGUARD (CURRENT) DRUG THERAPY 09/17/2016 ANY, BOBAN N Ot D50.9 IRON DEFICIENCY ANEMIA, UNSPECIFIED 09/17/2016 ANY, BOBAN N Ot E03.9 HYPOTHYROIDISM, UNSPECIFIED 09/17/2016 ANY, BOBAN N Ot 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 09/17/2016 ANY, BOBAN N Ot I12.9 HYPERTENSIVE CHRONIC KIDNEY DISEASE W ST 09/17/2016 ANY, BOBBLU N Ot I25.10 ATHSCL HEART DISEASE OF [place] CORONARY 09/17/2016 ANY, BOBAN N Ot I48.91 UNSPECIFIED ATRIAL FIBRILLATION 09/17/2016 ANY, BOBAN N Ot N18.3 CHRONIC KIDNEY DISEASE, STAGE 3 (MODERAT 09/17/2016 ANY, BOBAN N Ot Z79.899 OTHER JAIL (CURRENT) DRUG THERAPY 09/17/2016 KIERAN KHOURY, BERNY Champion Ot I25.10 ATHSCL HEART DISEASE OF [place] CORONARY 09/17/2016 Ot 250.00 AWA B NALLELY WO COMPL, TYPE II OR UNSPEC TY 09/17/2016 CHICHI RIVAS PROP ATTENDANT Ot 574.20 CHOLELITHIASIS NOS 09/17/2016 CHICHI RIVAS PROP ATTENDANT Ot 789.1 HEPATOMEGALY 09/17/2016 LINDA KHOURY FACC, ARNIE FACP CCDS Ot 401.9 HYPERTENSION NOS 09/17/2016 LINDA KHOURY FACC, ARNIE FACP CCDS Ot 414.00 CORON ATHEROSCLER NOS TYPE VESSEL, NATIV 09/17/2016 LINDA KHOURY FACC, ALI FACP CCDS Ot 427.31 ATRIAL FIBRILLATION 09/17/2016 TY KHOURY, TONIE Diaz Ot V72. 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 MACHINE OPERATOR LEANDRO KIDNEY DISEASE, STAGE III (MODER 09/17/2016 Ot V58.69 OTH MED,LT,CURRENT USE 09/17/2016 Ot 250.02 AWA B NALLELY WO COMPL, TYPE II OR UNSPEC TY 09/17/2016 HARVEY KHOURY, CLAUDE S Ot 574.20 CHOLELITHIASIS NOS 09/17/2016 HARVEY KHOURY, CLAUDE S Ot 585.2 CHRONIC KIDNEY DISEASE, STAGE II (MILD) 09/17/2016 OVI KHOURY, WU Ot E03.9 HYPOTHYROIDISM, UNSPECIFIED 09/17/2016 OVI KHOURY, TORI-FRANKIE Ot E11.6 5 TYPE 2 DIABETES MELLITUS WITH HYPERGLYCE 09/17/2016 OVI KHOURY, TORI-FRANKIE Ot E78.5 HYPERLIPIDEMIA, UNSPECIFIED 09/17/2016 OVI KHOURY, TORI-FRANKIE Ot I10 ESSENTIAL (PRIMARY) HYPERTENSION 09/17/2016 OVI KHOURY, TORI-FRANKIE Ot E03.9 HYPOTHYROIDISM, UNSPECIFIED 09/17/2016 OVI KHOURY, TORI-FRANKIE Ot E11.9 TYPE 2 DIABETES MELLITUS WITHOUT COMPLIC 09/17/2016 OVI KHOURY, TORI-FRANKIE Ot E78.5 HYPERLIPIDEMIA, UNSPECIFIED 09/17/2016 OVI KHOURY, TORI-FRANKIE Ot I10 ESSENTIAL (PRIMARY) HYPERTENSION 09/17/2016 SHIREEN AGARWAL Ot D64.9 ANEMIA, UNSPECIFIED 09/17/2016 SHIREEN AGARWAL Ot E03.9 HYPOTHYROIDISM, UNSPECIFIED 09/17/2016 SHIREEN AGARWAL Ot 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 09/17/2016 SHIREEN AGARWAL Ot I12.9 HYPERTENSIVE CHRONIC KIDNEY DISEASE W ST 09/17/2016 ANY, BOBAN N Ot I25.10 ATHSCL HEART DISEASE OF [place] CORONARY 09/17/2016 ANY, BOBAN N Ot I48.91 UNSPECIFIED ATRIAL FIBRILLATION 09/17/2016 ANY, BOBAN N Ot N18.3 CHRONIC KIDNEY DISEASE, STAGE 3 (MODERAT 09/17/2016 ANY, BOBAN N Ot Z79.899 OTHER POOL LIFEGUARD (CURRENT) DRUG THERAPY 09/17/2016 ANY, BOBAN N Ot D50.9 IRON DEFICIENCY ANEMIA, UNSPECIFIED 09/17/2016 ANY, BOBAN N Ot E03.9 HYPOTHYROIDISM, UNSPECIFIED 09/17/2016 ANY, BOBAN N Ot 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 09/17/2016 ANY, BOBAN N Ot I12.9 HYPERTENSIVE CHRONIC KIDNEY DISEASE W ST 09/17/2016 ANY, BOBAN N Ot I25.10 ATHSCL HEART DISEASE OF [place] CORONARY 09/17/2016 ANY, BOBAN N Ot I48.91 UNSPECIFIED ATRIAL FIBRILLATION 09/17/2016 ANY, BOBAN N Ot N18.3 CHRONIC KIDNEY DISEASE, STAGE 3 (MODERAT 09/17/2016 ANY, BOBAN N Ot Z79.899 OTHER JAIL (CURRENT) DRUG THERAPY 09/17/2016 KIERAN KHOURY, BERNY Champion Ot I25.10 ATHSCL HEART DISEASE OF [place] CORONARY 09/17/2016 ANY, BOBAN N Ot D50.9 IRON DEFICIENCY ANEMIA, UNSPECIFIED 09/17/2016 ANY, BOBAN N Ot E03.9 HYPOTHYROIDISM, UNSPECIFIED 09/17/2016 ANY, BOBAN N Ot 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 09/17/2016 ANY, BOBAN N Ot I12.9 HYPERTENSIVE CHRONIC KIDNEY DISEASE W ST 09/17/2016 ANY, BOBAN N Ot I25.10 ATHSCL HEART DISEASE OF [place] CORONARY 09/17/2016 ANY, BOBAN N Ot I48.91 UNSPECIFIED ATRIAL FIBRILLATION 09/17/2016 ANY, BOBAN N Ot N18.3 CHRONIC KIDNEY DISEASE, STAGE 3 (MODERAT 09/17/2016 ANY, BOBAN N Ot Z79.899 OTHER JAIL (CURRENT) DRUG THERAPY 09/17/2016 KIERAN KHOURY, BERNY R Ot I25.10 ATHSCL HEART DISEASE OF [place] CORONARY 09/17/2016 KIERAN KHOURY, BERNY Champion Ot I25.10 ATHSCL HEART DISEASE OF [place] CORONARY 10/09/2016 KIERAN KHOURY, BERNY Champion Ot I25.10 ATHSCL HEART DISEASE OF [place] CORONARY 10/09/2016 Ot 250.00 AWA B NALLELY WO COMPL, TYPE II OR UNSPEC TY 10/09/2016 CHICHI RIVAS PROP ATTENDANT Ot 574.20 CHOLELITHIASIS NOS 10/09/2016 CHICHI RIVAS PROP ATTENDANT Ot 789.1 HEPATOMEGALY 10/09/2016 LINDA KHOURY FACC, ALI FACP CCDS Ot 401.9 HYPERTENSION NOS 10/09/2016 LINDA KHOURY FACC, ALI FACP CCDS Ot 414.00 CORON ATHEROSCLER NOS TYPE VESSEL, NATIV 10/09/2016 LINDA KHOURY FACC, ALI FACP CCDS Ot 427.31 ATRIAL FIBRILLATION 10/09/2016 TY KHOURY, TONIE Diaz Ot V72. 84 EXAM PRE-OPERATIVE NOS 10/09/2016 LINDA KHOURY FACC, ALI FACP CCDS Ot 250.00 DIAB NALLELY WO COMPL, TYPE II OR UNSPEC TY 10/09/2016 LINDA KHOURY FACC, ALI FACP CCDS Ot 401.9 HYPERTENSION NOS 10/09/2016 LINDA KHOURY FACC, ALI FACP CCDS Ot 427.0 PAROX ATRIAL TACHYCARDIA 10/09/2016 LINDA KHOURY FACC, ALI FACP CCDS Ot 785.1 PALPITATIONS 10/09/2016 Ot 244.9 HYPO THYROIDISM NOS 10/09/2016 Ot 280.9 IRON DEFIC ANEMIA NOS 10/09/2016 Ot 585.3 BLENDING MACHINE OPERATOR LEANDRO KIDNEY DISEASE, STAGE III (MODER 10/09/2016 Ot V58.69 OTH MED,LT,CURRENT USE 10/09/2016 Ot 250.02 AWA B NALLELY WO COMPL, TYPE II OR UNSPEC TY 10/09/2016 HARVEY KHOURY, CLAUDE Clement Ot 574.20 CHOLELITHIASIS NOS 10/09/2016 HARVEY KHOURY, CLAUDE Clement Ot 585.2 CHRONIC KIDNEY DISEASE, STAGE II (MILD) 10/09/2016 OVI KHOURY, WU Ot E03.9 HYPOTHYROIDISM, UNSPECIFIED 10/09/2016 WU DIOR MD Ot E11.6 5 TYPE 2 DIABETES MELLITUS WITH HYPERGLYCE 10/09/2016 WU DIOR MD Ot E78.5 HYPERLIPIDEMIA, UNSPECIFIED 10/09/2016 OVI KHOURY, TORI-FRANKIE Ot I10 ESSENTIAL (PRIMARY) HYPERTENSION 10/09/2016 OVI KHOURY, FLORIDALMAU Ot E03.9 HYPOTHYROIDISM, UNSPECIFIED 10/09/2016 OVI KHOURY, TORI-FRANKIE Ot E11.9 TYPE 2 DIABETES MELLITUS WITHOUT COMPLIC 10/09/2016 OVI KHOURY, WU Ot E78.5 HYPERLIPIDEMIA, UNSPECIFIED 10/09/2016 OVI KHOURY, TORI-FRANKIE Ot I10 ESSENTIAL (PRIMARY) HYPERTENSION 10/09/2016 ANY, BOBAN N Ot D64.9 ANEMIA, UNSPECIFIED 10/09/2016 ANY, BOBAN N Ot E03.9 HYPOTHYROIDISM, UNSPECIFIED 10/09/2016 ANY, BOBAN N Ot 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 10/09/2016 ANY, BOBAN N Ot I12.9 HYPERTENSIVE CHRONIC KIDNEY DISEASE W ST 10/09/2016 ANY, BOBAN N Ot I25.10 ATHSCL HEART DISEASE OF [place] CORONARY 10/09/2016 AYN, BOBAN N Ot I48.91 UNSPECIFIED ATRIAL FIBRILLATION 10/09/2016 ANY, BOBAN N Ot N18.3 CHRONIC KIDNEY DISEASE, STAGE 3 (MODERAT 10/09/2016 ANY, BOBAN N Ot Z79.899 OTHER POOL LIFEGUARD (CURRENT) DRUG THERAPY 10/09/2016 ANY, BOBAN N Ot D50.9 IRON DEFICIENCY ANEMIA, UNSPECIFIED 10/09/2016 ANY, BOBAN N Ot E03.9 HYPOTHYROIDISM, UNSPECIFIED 10/09/2016 ANY, BOBAN N Ot 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 10/09/2016 ANY, BOBAN N Ot I12.9 HYPERTENSIVE CHRONIC KIDNEY DISEASE W ST 10/09/2016 ANY, BOBAN N Ot I25.10 ATHSCL HEART DISEASE OF [place] CORONARY 10/09/2016 ANY, BOBAN N Ot I48.91 UNSPECIFIED ATRIAL FIBRILLATION 10/09/2016 ANY, BOBAN N Ot N18.3 CHRONIC KIDNEY DISEASE, STAGE 3 (MODERAT 10/09/2016 ANY, BOBAN N Ot Z79.899 OTHER JAIL (CURRENT) DRUG THERAPY 10/09/2016 KIERAN KHOURY, BERNY Champion Ot I25.10 ATHSCL HEART DISEASE OF [place] CORONARY 10/09/2016 KIERAN KHOURY, M ROMA Ot I47 .1 SUPRAVENTRICULAR TACHYCARDIA 10/09/2016 KIERAN KHOURY, Wei BRANDON Ot I48.91 UNSPECIFIED ATRIAL FIBRILLATION 10/30/2016 KIERAN KHOURY, BERNY R Ot I25.10 ATHSCL HEART DISEASE OF [place] CORONARY 11/03/2016 ANY, BOBAN N Ot D50.9 IRON DEFICIENCY ANEMIA, UNSPECIFIED 11/03/2016 ANY, BOBAN N Ot E03.9 HYPOTHYROIDISM, UNSPECIFIED 11/03/2016 ANY, BOBAN N Ot 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 11/03/2016 ANY, BOBAN N Ot I12.9 HYPERTENSIVE CHRONIC KIDNEY DISEASE W ST 11/03/2016 ANY, BOBAN N Ot I25.10 ATHSCL HEART DISEASE OF [place] CORONARY 11/03/2016 ANY, BOBAN N Ot I48.91 UNSPECIFIED ATRIAL FIBRILLATION 11/03/2016 ANY, BOBAN N Ot N18.3 CHRONIC KIDNEY DISEASE, STAGE 3 (MODERAT 11/03/2016 ANY, BOBAN N Ot Z79.899 OTHER JAIL (CURRENT) DRUG THERAPY 11/04/2016 ANY, BOBAN N Ot D50.9 IRON DEFICIENCY ANEMIA, UNSPECIFIED 11/04/2016 ANY, BOBAN N Ot E03.9 HYPOTHYROIDISM, UNSPECIFIED 11/04/2016 ANY, BOBAN N Ot 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 11/04/2016 ANY, BOBAN N Ot I12.9 HYPERTENSIVE CHRONIC KIDNEY DISEASE W ST 11/04/2016 ANY, BOBAN N Ot I25.10 ATHSCL HEART DISEASE OF [place] CORONARY 11/04/2016 ANY, BOBAN N Ot I48.91 UNSPECIFIED ATRIAL FIBRILLATION 11/04/2016 ANY, BOBAN N Ot N18.3 CHRONIC KIDNEY DISEASE, STAGE 3 (MODERAT 11/04/2016 ANY, BOBAN N Ot Z79.899 OTHER JAIL (CURRENT) DRUG THERAPY 11/17/2016 KIERAN KHOURY, BERNY R Ot I25.10 ATHSCL HEART DISEASE OF [place] CORONARY 11/18/2016 ANY, BOBAN N Ot D50.9 IRON DEFICIENCY ANEMIA, UNSPECIFIED 11/18/2016 ANY, BOBAN N Ot E03.9 HYPOTHYROIDISM, UNSPECIFIED 11/18/2016 ANY, BOBAN N Ot 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 11/18/2016 ANY, BOBAN N Ot I12.9 HYPERTENSIVE CHRONIC KIDNEY DISEASE W ST 11/18/2016 ANY, BOBAN N Ot I25.10 ATHSCL HEART DISEASE OF [place] CORONARY 11/18/2016 ANY, BOBAN N Ot I48.91 UNSPECIFIED ATRIAL FIBRILLATION 11/18/2016 ANY, BOBAN N Ot N18.3 CHRONIC KIDNEY DISEASE, STAGE 3 (MODERAT 11/18/2016 ANY, BOBAN N Ot Z79.899 OTHER POOL LIFEGUARD (CURRENT) DRUG THERAPY 12/10/2016 ANY, BOBAN N Ot D50.9 IRON DEFICIENCY ANEMIA, UNSPECIFIED 12/10/2016 ANY, BOBAN N Ot E03.9 HYPOTHYROIDISM, UNSPECIFIED 12/10/2016 ANY, BOBAN N Ot 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 12/10/2016 ANY, BOBAN N Ot I12.9 HYPERTENSIVE CHRONIC KIDNEY DISEASE W ST 12/10/2016 ANY, BOBAN N Ot I25.10 ATHSCL HEART DISEASE OF [place] CORONARY 12/10/2016 ANY, BOBAN N Ot I48.91 UNSPECIFIED ATRIAL FIBRILLATION 12/10/2016 ANY, BOBAN N Ot N18.3 CHRONIC KIDNEY DISEASE, STAGE 3 (MODERAT 12/10/2016 ANY, BOBAN N Ot Z79.899 OTHER JAIL (CURRENT) DRUG THERAPY 12/12/2016 ANY, BOBAN N Ot D50.9 IRON DEFICIENCY ANEMIA, UNSPECIFIED 12/12/2016 ANY, BOBAN N Ot E03.9 HYPOTHYROIDISM, UNSPECIFIED 12/12/2016 ANY, BOBAN N Ot 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 12/12/2016 ANY, BOBAN N Ot I12.9 HYPERTENSIVE CHRONIC KIDNEY DISEASE W ST 12/12/2016 ANY, BOBAN N Ot I25.10 ATHSCL HEART DISEASE OF [place] CORONARY 12/12/2016 ANY, BOBAN N Ot I48.91 UNSPECIFIED ATRIAL FIBRILLATION 12/12/2016 ANY, BOBAN N Ot N18.3 CHRONIC KIDNEY DISEASE, STAGE 3 (MODERAT 12/12/2016 ANY, BOBAN N Ot Z79.899 OTHER POOL LIFEGUARD (CURRENT) DRUG THERAPY 12/16/2016 KIERAN KHOURY, Wei BRANDON Ot I47 .1 SUPRAVENTRICULAR TACHYCARDIA 12/16/2016 KIERAN KHOURY, Wei BRANDON Ot I48.91 UNSPECIFIED ATRIAL FIBRILLATION 12/20/2016 Wei ALCARAZ MD Ot I47 .1 SUPRAVENTRICULAR TACHYCARDIA 12/20/2016 Wei ALCARAZ MD Ot I48.91 UNSPECIFIED ATRIAL FIBRILLATION 12/31/2016 Ot 250.00 AWA B NALLELY WO COMPL, TYPE II OR UNSPEC TY 12/31/2016 ROB CHICHI H PROP ATTENDANT Ot 574.20 CHOLELITHIASIS NOS 12/31/2016 ROB CHICHI H PROP ATTENDANT Ot 789.1 HEPATOMEGALY 12/31/2016 LINDA KHOURY FACC, ALI FACP CCDS Ot 401.9 HYPERTENSION NOS 12/31/2016 LINDA KHOURY FACC, ALI FACP CCDS Ot 414.00 CORON ATHEROSCLER NOS TYPE VESSEL, NATIV 12/31/2016 LINDA KHOURY FACC, ALI FACP CCDS Ot 427.31 ATRIAL FIBRILLATION 12/31/2016 TY KHOURY, TONIE Diaz Ot V72. 84 EXAM PRE-OPERATIVE NOS 12/31/2016 LINDA KHOURY FACC, ALI FACP CCDS Ot 250.00 DIAB NALLELY WO COMPL, TYPE II OR UNSPEC TY 12/31/2016 LINDA KHOURY FACC, ALI FACP CCDS Ot 401.9 HYPERTENSION NOS 12/31/2016 LINDA KHOURY FACC, ALI FACP CCDS Ot 427.0 PAROX ATRIAL TACHYCARDIA 12/31/2016 LINDA KHOURY FACC, ALI FACP CCDS Ot 785.1 PALPITATIONS 12/31/2016 Ot 244.9 HYPO THYROIDISM NOS 12/31/2016 Ot 280.9 IRON DEFIC ANEMIA NOS 12/31/2016 Ot 585.3 BLENDING MACHINE OPERATOR LEANDRO KIDNEY DISEASE, STAGE III (MODER 12/31/2016 Ot V58.69 OTH MED,LT,CURRENT USE 12/31/2016 Ot 250.02 AWA Eduardo BROWNING WO COMPL, TYPE II OR UNSPEC TY 12/31/2016 HARVEY KHOURY, CLAUDE Clement Ot 574.20 CHOLELITHIASIS NOS 12/31/2016 HARVEY KHOURY, CLAUDE Clement Ot 585.2 CHRONIC KIDNEY DISEASE, STAGE II (MILD) 12/31/2016 OVI KHOURY, WU Ot E03.9 HYPOTHYROIDISM, UNSPECIFIED 12/31/2016 OVI KHOURY, FLORIDALMAU Ot E11.6 5 TYPE 2 DIABETES MELLITUS WITH HYPERGLYCE 12/31/2016 OVI KHOURY, FLORIDALMAU Ot E78.5 HYPERLIPIDEMIA, UNSPECIFIED 12/31/2016 OVI KHOURY, TORI-FRANKIE Ot I10 ESSENTIAL (PRIMARY) HYPERTENSION 12/31/2016 OVI KHOURY, WU Ot E03.9 HYPOTHYROIDISM, UNSPECIFIED 12/31/2016 OVI KHOURY, TORI-FRANKIE Ot E11.9 TYPE 2 DIABETES MELLITUS WITHOUT COMPLIC 12/31/2016 OVI KHOURY, FLORIDALMAU Ot E78.5 HYPERLIPIDEMIA, UNSPECIFIED 12/31/2016 OVI KHOURY, TORI-FRANKIE Ot I10 ESSENTIAL (PRIMARY) HYPERTENSION 12/31/2016 SHIREEN AGARWAL N Ot D64.9 ANEMIA, UNSPECIFIED 12/31/2016 SHIREEN AGARWAL N Ot E03.9 HYPOTHYROIDISM, UNSPECIFIED 12/31/2016 SHIREEN AGARWAL N Ot 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 12/31/2016 SHIREEN AGARWAL N Ot I12.9 HYPERTENSIVE CHRONIC KIDNEY DISEASE W ST 12/31/2016 SHIREEN AGARWAL N Ot I25.10 ATHSCL HEART DISEASE OF [place] CORONARY 12/31/2016 SHIREEN AGARWAL Ot I48.91 UNSPECIFIED ATRIAL FIBRILLATION 12/31/2016 SHIREEN AGARWAL N Ot N18.3 CHRONIC KIDNEY DISEASE, STAGE 3 (MODERAT 12/31/2016 SHIREEN AGARWAL Ot Z79.899 OTHER JAIL (CURRENT) DRUG THERAPY 12/31/2016 KIERAN KHOURY, BERNY R Ot I25.10 ATHSCL HEART DISEASE OF [place] CORONARY 12/31/2016 KIERAN KHOURY, BERNY R Ot I25.10 ATHSCL HEART DISEASE OF [place] CORONARY 12/31/2016 SHIREEN AGARWAL N Ot D50.9 IRON DEFICIENCY ANEMIA, UNSPECIFIED 12/31/2016 SHIREEN AGARWAL N Ot E03.9 HYPOTHYROIDISM, UNSPECIFIED 12/31/2016 SHIREEN AGARWAL N Ot 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 12/31/2016 SHIREEN AGARWAL N Ot I12.9 HYPERTENSIVE CHRONIC KIDNEY DISEASE W ST 12/31/2016 SHIREEN AGARWAL N Ot I25.10 ATHSCL HEART DISEASE OF [place] CORONARY 12/31/2016 SHIREEN AGARWAL Solange Ot I48.91 UNSPECIFIED ATRIAL FIBRILLATION 12/31/2016 SHIREEN AGARWAL Solange Ot N18.3 CHRONIC KIDNEY DISEASE, STAGE 3 (MODERAT 12/31/2016 SHIREEN AGARWAL Ot Z79.899 OTHER POOL LIFEGUARD (CURRENT) DRUG THERAPY 12/31/2016 KIERAN KHOURY, Wei BRANDON Ot I47 .1 SUPRAVENTRICULAR TACHYCARDIA 12/31/2016 KIERAN KHOURY, Wei BRANDON Ot I48.91 UNSPECIFIED ATRIAL FIBRILLATION 01/01/2017 KIERAN KHOURY, Wei BRANDON Ot I47 .1 SUPRAVENTRICULAR TACHYCARDIA 01/01/2017 KIERAN KHOURY, Wei BRANDON Ot I48.91 UNSPECIFIED ATRIAL FIBRILLATION 01/01/2017 NWAGWU, ISIDORE O SALES AGENT TRADING STAMPS Ot D64.9 ANEMIA, UNSPECIFIED 01/01/2017 NWAGWU, ISIDORE O SALES AGENT TRADING STAMPS Ot D64.9 ANEMIA, UNSPECIFIED 01/02/2017 SABRINA ROSSI DO Ot D50. 9 IRON DEFICIENCY ANEMIA, UNSPECIFIED 01/02/2017 SABRINA ROSSI DO D Ot E03. 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 5 HYPERLIPIDEMIA, UNSPECIFIED 01/02/2017 SABRINA ROSSI DO D Ot I12. 9 HYPERTENSIVE CHRONIC KIDNEY DISEASE W ST 01/02/2017 SABRINA ROSSI DO Ot I25. 10 ATHSCL HEART DISEASE OF [place] CORONARY 01/02/2017 SABRINA ROSSI DO Ot I47. 1 SUPRAVENTRICULAR TACHYCARDIA 01/02/2017 SABRINA ROSSI DO D Ot I48. 91 UNSPECIFIED ATRIAL FIBRILLATION 01/02/2017 SABRINA ROSSI DO D Ot K29. 70 GASTRITIS, UNSPECIFIED, WITHOUT BLEEDING 01/02/2017 SABRINA ROSSI DO D Ot K44. 9 DIAPHRAGMATIC HERNIA WITHOUT OBSTRUCTION 01/02/2017 SABRINA ROSSI DO D Ot K64. 9 UNSPECIFIED HEMORRHOIDS 01/02/2017 SABRINA ROSSI DO Ot N18. 3 CHRONIC KIDNEY DISEASE, STAGE 3 (MODERAT 01/02/2017 SABRINA ROSSI DO Ot R19. 5 OTHER FECAL ABNORMALITIES 01/02/2017 SABRINA ROSSI DO Ot Z79. 01 JAIL (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 OF ANTICOAGULANT 01/02/2017 SABRINA ROSSI DO Ot Z79. 84 POOL LIFEGUARD (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 OF ORAL HYPOGLYC 01/02/2017 SABRINA ROSSI DO Ot Z79.899 OTHER POOL LIFEGUARD (CURRENT) DRUG THERAPY 01/02/2017 SARBINA ROSSI DO Ot Z80. 0 FAMILY HISTORY OF MALIGNANT NEOPLASM OF 01/02/2017 SABRINA ROSSI DO Ot Z95. 5 PRESENCE OF CORONARY ANGIOPLASTY IMPLANT 01/06/2017 SABRINA ROSSI DO Ot D50. 9 IRON DEFICIENCY ANEMIA, UNSPECIFIED 01/06/2017 SABRINA ROSSI DO Ot E03. 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 5 HYPERLIPIDEMIA, UNSPECIFIED 01/06/2017 SABRINA ROSSI DO Ot I12. 9 HYPERTENSIVE CHRONIC KIDNEY DISEASE W ST 01/06/2017 SABRINA ROSSI DO Ot I25. 10 ATHSCL HEART DISEASE OF [place] CORONARY 01/06/2017 SABRINA ROSSI DO Ot I47. 1 SUPRAVENTRICULAR TACHYCARDIA 01/06/2017 SABRINA ROSSI DO Ot I48. 91 UNSPECIFIED ATRIAL FIBRILLATION 01/06/2017 SABRINA ROSSI DO Ot K29. 70 GASTRITIS, UNSPECIFIED, WITHOUT BLEEDING 01/06/2017 SABRINA ROSSI DO Ot K44. 9 DIAPHRAGMATIC HERNIA WITHOUT OBSTRUCTION 01/06/2017 SABRINA ROSSI DO Ot K64. 9 UNSPECIFIED HEMORRHOIDS 01/06/2017 SABRINA ROSSI DO Ot N18. 3 CHRONIC KIDNEY DISEASE, STAGE 3 (MODERAT 01/06/2017 SABRINA ROSSI DO Ot R19. 5 OTHER FECAL ABNORMALITIES 01/06/2017 SABRINA ROSSI DO Ot Z79. 01 POOL LIFEGUARD (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 OF ANTICOAGULANT 01/06/2017 SABRINA ROSSI DO Ot Z79. 84 JAIL (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 OF ORAL HYPOGLYC 01/06/2017 SABRINA ROSSI DO Ot Z79.899 OTHER POOL LIFEGUARD (CURRENT) DRUG THERAPY 01/06/2017 FLO WOODSABRINA Ot Z80. 0 FAMILY HISTORY OF MALIGNANT NEOPLASM OF 01/06/2017 FLO WOODSABRINA Ot Z95. 5 PRESENCE OF CORONARY ANGIOPLASTY IMPLANT 01/29/2017 Ot 250.00 AWA B NALLELY WO COMPL, TYPE II OR UNSPEC TY 01/29/2017 CHICHI RIVAS PROP ATTENDANT Ot 574.20 CHOLELITHIASIS NOS 01/29/2017 CHICHI RIVAS PROP ATTENDANT Ot 789.1 HEPATOMEGALY 01/29/2017 LINDA KHOURY FACC, ALI FACP CCDS Ot 401.9 HYPERTENSION NOS 01/29/2017 LINDA KHOURY FACC, ALI FACP CCDS Ot 414.00 CORON ATHEROSCLER NOS TYPE VESSEL, NATIV 01/29/2017 LINDA KHOURY FACC, ALI FACP CCDS Ot 427.31 ATRIAL FIBRILLATION 01/29/2017 TY KHOURY, TONIE Diaz Ot V72. 84 EXAM PRE-OPERATIVE NOS 01/29/2017 LINDA KHOURY FACC, ALI FACP CCDS Ot 250.00 DIAB NALLELY WO COMPL, TYPE II OR UNSPEC TY 01/29/2017 LINDA KHOURY FACC, ALI FACP CCDS Ot 401.9 HYPERTENSION NOS 01/29/2017 LINDA KHOURY FACC, ALI FACP CCDS Ot 427.0 PAROX ATRIAL TACHYCARDIA 01/29/2017 LINDA KHOURY FACC, ALI FACP CCDS Ot 785.1 PALPITATIONS 01/29/2017 Ot 244.9 HYPO THYROIDISM NOS 01/29/2017 Ot 280.9 IRON DEFIC ANEMIA NOS 01/29/2017 Ot 585.3 BLENDING MACHINE OPERATOR LEANDRO KIDNEY DISEASE, STAGE III (MODER 01/29/2017 Ot V58.69 OT MED,LT,CURRENT USE 01/29/2017 Ot 250.02 AWA B NALLELY WO COMPL, TYPE II OR UNSPEC TY 01/29/2017 HARVEY KHOURY, CLAUDE Clement Ot 574.20 CHOLELITHIASIS NOS 01/29/2017 HARVEY KHOURY, CLAUDE Clement Ot 585.2 CHRONIC KIDNEY DISEASE, STAGE II (MILD) 01/29/2017 OVI KHOURY, WU Ot E03.9 HYPOTHYROIDISM, UNSPECIFIED 01/29/2017 OVI KHOURY, UW Ot E11.6 5 TYPE 2 DIABETES MELLITUS WITH HYPERGLYCE 01/29/2017 OVI KHOURY, TORI-FRANKIE Ot E78.5 HYPERLIPIDEMIA, UNSPECIFIED 01/29/2017 OVI KHOURY, TORI-FRANKIE Ot I10 ESSENTIAL (PRIMARY) HYPERTENSION 01/29/2017 OVI KHOURY, TORI-FRANKIE Ot E03.9 HYPOTHYROIDISM, UNSPECIFIED 01/29/2017 OVI KHOURY, TORI-FRANKIE Ot E11.9 TYPE 2 DIABETES MELLITUS WITHOUT COMPLIC 01/29/2017 OVI KHOURY, WU Ot E78.5 HYPERLIPIDEMIA, UNSPECIFIED 01/29/2017 OVI KHOURY, TORI-FRANKIE Ot I10 ESSENTIAL (PRIMARY) HYPERTENSION 01/29/2017 ANYJJ BALDWINAN N Ot D64.9 ANEMIA, UNSPECIFIED 01/29/2017 ANYSHIREEN BALDWIN N Ot E03.9 HYPOTHYROIDISM, UNSPECIFIED 01/29/2017 ANY, BOBAN N Ot 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 01/29/2017 ANY BOBAN N Ot I12.9 HYPERTENSIVE CHRONIC KIDNEY DISEASE W ST 01/29/2017 SHIREEN AGARWAL N Ot I25.10 ATHSCL HEART DISEASE OF [place] CORONARY 01/29/2017 ANY BOBAN N Ot I48.91 UNSPECIFIED ATRIAL FIBRILLATION 01/29/2017 ANY BOBAN N Ot N18.3 CHRONIC KIDNEY DISEASE, STAGE 3 (MODERAT 01/29/2017 SHIREEN AGARWAL N Ot Z79.899 OTHER POOL LIFEGUARD (CURRENT) DRUG THERAPY 01/29/2017 KIERAN KHOURY, BERNY R Ot I25.10 ATHSCL HEART DISEASE OF [place] CORONARY 01/29/2017 KIERAN KHOURY, BERNY R Ot I25.10 ATHSCL HEART DISEASE OF [place] CORONARY 01/29/2017 JJ AGARWALAN N Ot D50.9 IRON DEFICIENCY ANEMIA, UNSPECIFIED 01/29/2017 JJ AGARWALAN N Ot E03.9 HYPOTHYROIDISM, UNSPECIFIED 01/29/2017 ANY, BOBAN N Ot 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 9 IRON DEFICIENCY ANEMIA, UNSPECIFIED 01/29/2017 SABRINA ROSSI DO Ot R19. 5 OTHER FECAL ABNORMALITIES 01/29/2017 SABRINA ROSSI DO Ot Z01.818 ENCOUNTER FOR OTHER PREPROCEDURAL EXAMIN 01/29/2017 SABRINA ROSSI DO Ot Z80. 0 FAMILY HISTORY OF MALIGNANT NEOPLASM OF 01/29/2017 Ot 250.00 AWA B NALLELY WO COMPL, TYPE II OR UNSPEC TY 01/29/2017 CHICHI RIVAS PROP ATTENDANT Ot 574.20 CHOLELITHIASIS NOS 01/29/2017 CHICHI RIVAS PROP ATTENDANT Ot 789.1 HEPATOMEGALY 01/29/2017 LINDA KHOURY FACC, ALI FACP CCDS Ot 401.9 HYPERTENSION NOS 01/29/2017 LINDA KHOURY FACC, ALI FACP CCDS Ot 414.00 CORON ATHEROSCLER NOS TYPE VESSEL, NATIV 01/29/2017 LINDA KHOURY FACC, ALI FACP CCDS Ot 427.31 ATRIAL FIBRILLATION 01/29/2017 TY KHOURY, TONIE Diaz Ot V72. 84 EXAM PRE-OPERATIVE NOS 01/29/2017 LINDA GONZALESC, ALI FACP CCDS Ot 250.00 DIAB NALLELY WO COMPL, TYPE II OR UNSPEC TY 01/29/2017 LINDA GONZALESC, ALI FACP CCDS Ot 401.9 HYPERTENSION NOS 01/29/2017 LINDA KHOURY FACC, ALI FACP CCDS Ot 427.0 PAROX ATRIAL TACHYCARDIA 01/29/2017 LINDA GONZALESC, ALI FACP CCDS Ot 785.1 PALPITATIONS 01/29/2017 Ot 244.9 HYPO THYROIDISM NOS 01/29/2017 Ot 280.9 IRON DEFIC ANEMIA NOS 01/29/2017 Ot 585.3 BLENDING MACHINE OPERATOR LEANDRO KIDNEY DISEASE, STAGE III (MODER 01/29/2017 Ot V58.69 OTH MED,LT,CURRENT USE 01/29/2017 Ot 250.02 AWA BROWNING WO COMPL, TYPE II OR UNSPEC TY 01/29/2017 HARVEY KHOURY, CLAUDE Clement Ot 574.20 CHOLELITHIASIS NOS 01/29/2017 HARVEY KHOURY, CLAUDE Clement Ot 585.2 CHRONIC KIDNEY DISEASE, STAGE II (MILD) 01/29/2017 OVI KHOURY, TORI-FRANKIE Ot E03.9 HYPOTHYROIDISM, UNSPECIFIED 01/29/2017 OVI KHOURY, TORI-FRANKIE Ot E11.6 5 TYPE 2 DIABETES MELLITUS WITH HYPERGLYCE 01/29/2017 [...] 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 01/29/2017 SHIREEN AGARWAL Ot I12.9 HYPERTENSIVE CHRONIC KIDNEY DISEASE W ST 01/29/2017 SHIREEN AGARWAL Ot I25.10 ATHSCL HEART DISEASE OF [place] CORONARY 01/29/2017 SHIREEN AGARWAL Ot I48.91 UNSPECIFIED ATRIAL FIBRILLATION 01/29/2017 SHIREEN AGARWAL Ot N18.3 CHRONIC KIDNEY DISEASE, STAGE 3 (MODERAT 01/29/2017 SHIREEN AGARWAL Ot Z79.899 OTHER JAIL (CURRENT) DRUG THERAPY 01/29/2017 KIERAN KHOURY, BERNY R Ot I25.10 ATHSCL HEART DISEASE OF [place] CORONARY 01/29/2017 KIERAN KHOURY, BERNY R Ot I25.10 ATHSCL HEART DISEASE OF [place] CORONARY 01/29/2017 SHIREEN AAGRWAL Ot D50.9 IRON DEFICIENCY ANEMIA, UNSPECIFIED 01/29/2017 SHIREEN AGARWAL Solange Ot E03.9 HYPOTHYROIDISM, UNSPECIFIED 01/29/2017 SHIREEN AGARWAL N Ot 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 01/29/2017 SHIREEN AGARWAL Solange Ot I12.9 HYPERTENSIVE CHRONIC KIDNEY DISEASE W ST 01/29/2017 SHIREEN AGARWAL Solange Ot I25.10 ATHSCL HEART DISEASE OF [place] CORONARY 01/29/2017 ANY JJBLU Solange Ot I48.91 UNSPECIFIED ATRIAL FIBRILLATION 01/29/2017 SHIREEN AGARWAL Solange Ot N18.3 CHRONIC KIDNEY DISEASE, STAGE 3 (MODERAT 01/29/2017 SHIREEN AGARWAL Solange Ot Z79.899 OTHER POOL LIFEGUARD (CURRENT) DRUG THERAPY 01/29/2017 KIERAN KHOURY, Wei BRANDON Ot I47 .1 SUPRAVENTRICULAR TACHYCARDIA 01/29/2017 KIERAN KHOURY, Wei BRANDON Ot I48.91 UNSPECIFIED ATRIAL FIBRILLATION 01/29/2017 SABRINA ROSSI DO Ot D50. 9 IRON DEFICIENCY ANEMIA, UNSPECIFIED 01/29/2017 SABRINA ROSSI DO Ot R19. 5 OTHER FECAL ABNORMALITIES 01/29/2017 SABRINA ROSSI DO Ot Z01.818 ENCOUNTER FOR OTHER PREPROCEDURAL EXAMIN 01/29/2017 SABRINA ROSSI DO Ot Z80. 0 FAMILY HISTORY OF MALIGNANT NEOPLASM OF 01/31/2017 [...] MYOCARDIAL INF 01/31/2017 JAMES TORRES MD Ot I25.1 0 ATHSCL HEART DISEASE OF [place] CORONARY 01/31/2017 JAMES TORRES MD Ot I48.0 PAROXYSMAL ATRIAL FIBRILLATION 01/31/2017 JAMES TORRES MD Ot I50.9 HEART FAILURE, UNSPECIFIED 01/31/2017 JAMES TORRES MD Ot I87.2 VENOUS INSUFFICIENCY (CHRONIC) (PERIPHER 01/31/2017 JAMES TORRES MD Ot K21.9 GASTRO-ESOPHAGEAL REFLUX DISEASE WITHOUT 01/31/2017 JAMES TORRES MD Ot L40.9 PSORIASIS, UNSPECIFIED 01/31/2017 JAMES TORRES MD Ot M79.8 9 OTHER SPECIFIED SOFT TISSUE DISORDERS 01/31/2017 JAMES TORRES MD Ot Z68.4 2 BODY MASS INDEX (BMI) 45.0-49.9, ADULT 01/31/2017 JAMES TORRES MD Ot Z79.0 1 POOL LIFEGUARD (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 OF ANTICOAGULANT 01/31/2017 JAMES TORRES MD Ot Z95.5 PRESENCE OF CORONARY ANGIOPLASTY IMPLANT 02/11/2017 SHIREEN AGARWAL Ot D50.9 IRON DEFICIENCY ANEMIA, UNSPECIFIED 02/11/2017 SHIREEN AGARWAL Ot E03.9 HYPOTHYROIDISM, UNSPECIFIED 02/11/2017 SHIREEN AGARWAL Ot 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 9 ANEMIA, UNSPECIFIED 02/23/2017 SABRINA ROSSI DO Ot Z01.818 ENCOUNTER FOR OTHER PREPROCEDURAL EXAMIN 03/03/2017 SABRINA ROSSI DO Ot D64. 9 ANEMIA, UNSPECIFIED 03/03/2017 ROSSI DO, SABRINA D Ot E03. 9 HYPOTHYROIDISM, UNSPECIFIED 03/03/2017 ROSSI DO, SABRINA D Ot E11. 9 TYPE 2 DIABETES MELLITUS WITHOUT COMPLIC 03/03/2017 ROSSI DO, SABRINA D Ot K59. 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 03/09/2017 ANY, BOBAN N Ot I12.9 HYPERTENSIVE CHRONIC KIDNEY DISEASE W ST 03/09/2017 ANY, BOBAN N Ot I25.10 ATHSCL HEART DISEASE OF [place] CORONARY 03/09/2017 ANY, BOBAN N Ot I48.91 UNSPECIFIED ATRIAL FIBRILLATION 03/09/2017 ANY, BOBAN N Ot N18.3 CHRONIC KIDNEY DISEASE, STAGE 3 (MODERAT 03/09/2017 ANY, BOBAN N Ot Z79.899 OTHER JAIL (CURRENT) DRUG THERAPY 03/10/2017 ANY BOBAN N Ot D50.9 IRON DEFICIENCY ANEMIA, UNSPECIFIED 03/10/2017 ANY BOBAN N Ot E03.9 HYPOTHYROIDISM, UNSPECIFIED 03/10/2017 ANY, BOBAN N Ot 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 9 ANEMIA, UNSPECIFIED 03/13/2017 ROSSI DO, SABRINA D Ot E03. 9 HYPOTHYROIDISM, UNSPECIFIED 03/13/2017 ROSSI DO, SABRINA D Ot E11. 9 TYPE 2 DIABETES MELLITUS WITHOUT COMPLIC 03/13/2017 ROSSI DO, SABRINA D Ot K59. 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 80 DUODENITIS WITHOUT BLEEDING 04/06/2017 FLO WOOD SABRINA D Ot Z01.818 ENCOUNTER FOR OTHER PREPROCEDURAL EXAMIN 04/06/2017 FLO DO, SABRINA D Ot K29. 80 DUODENITIS WITHOUT BLEEDING 04/06/2017 FLO WOOD SABRINA D Ot Z01.818 ENCOUNTER FOR OTHER PREPROCEDURAL EXAMIN 04/08/2017 LFO DOLALOTT D Ot K29. 80 DUODENITIS WITHOUT BLEEDING 04/08/2017 SABRINA ROSSI DO Ot Z53. 9 PROCEDURE AND TREATMENT NOT CARRIED OUT, 04/23/2017 FLO DO SABRINA D Ot K29. 80 DUODENITIS WITHOUT BLEEDING 04/23/2017 SABRINA ROSSI DO Ot Z53. 9 PROCEDURE AND TREATMENT NOT CARRIED OUT, 04/23/2017 FLO WOOD SABRINA D Ot K29. 80 DUODENITIS WITHOUT BLEEDING 04/23/2017 SABRINA ROSSI DO Ot Z53. 9 PROCEDURE AND TREATMENT NOT CARRIED OUT, 06/10/2017 JAMES TORRES MD Ot E03.9 HYPOTHYROIDISM, UNSPECIFIED 06/10/2017 JAMES TORRES MD Ot E11.9 TYPE 2 DIABETES MELLITUS WITHOUT COMPLIC 06/10/2017 BRIAN KHOURY, JAMES R Ot I10 ESSENTIAL (PRIMARY) HYPERTENSION 06/10/2017 SABRINA ROSSI DO Ot D64. 9 ANEMIA, UNSPECIFIED 06/10/2017 SABRINA ROSSI DO Ot K76. 89 OTHER SPECIFIED DISEASES OF LIVER 06/10/2017 SABRINA ROSSI DO Ot K82. 1 HYDROPS OF GALLBLADDER 06/16/2017 SHIREEN AGARWAL Ot D64.9 ANEMIA, UNSPECIFIED 06/16/2017 Ot 250.00 AWA Eduardo BROWNING WO COMPL, TYPE II OR UNSPEC TY 06/16/2017 CHICHI RIVAS PROP ATTENDANT Ot 574.20 CHOLELITHIASIS NOS 06/16/2017 CHICHI RIVAS PROP ATTENDANT Ot 789.1 HEPATOMEGALY 06/16/2017 LINDA KHOURY FACC, ALI FACP CCDS Ot 401.9 HYPERTENSION NOS 06/16/2017 LINDA KHOURY FACC, ALI FACP CCDS Ot 414.00 CORON ATHEROSCLER NOS TYPE VESSEL, NATIV 06/16/2017 LINDA KHOURY FACC, ALI FACP CCDS Ot 427.31 ATRIAL FIBRILLATION 06/16/2017 TY KHOURY, TONIE Diaz Ot V72. 84 EXAM PRE-OPERATIVE NOS 06/16/2017 LINDA KHOURY FACC, ALI FACP CCDS Ot 250.00 DIAB NALLELY WO COMPL, TYPE II OR UNSPEC TY 06/16/2017 LINDA KHOURY FACC, ALI FACP CCDS Ot 401.9 HYPERTENSION NOS 06/16/2017 LINDA KHOURY FACC, ALI FACP CCDS Ot 427.0 PAROX ATRIAL TACHYCARDIA 06/16/2017 LINDA KHOURY FACC, ALI FACP CCDS Ot 785.1 PALPITATIONS 06/16/2017 Ot 244.9 HYPO THYROIDISM NOS 06/16/2017 Ot 280.9 IRON DEFIC ANEMIA NOS 06/16/2017 Ot 585.3 BLENDING MACHINE OPERATOR LEANDRO KIDNEY DISEASE, STAGE III (MODER 06/16/2017 Ot V58.69 OTH MED,LT,CURRENT USE 06/16/2017 Ot 250.02 AWA Eduardo BROWNING WO COMPL, TYPE II OR UNSPEC TY 06/16/2017 HARVEY KHOURY, CLAUDE Clement Ot 574.20 CHOLELITHIASIS NOS 06/16/2017 HARVEY KHOURY, CLAUDE S Ot 585.2 CHRONIC KIDNEY DISEASE, STAGE II (MILD) 06/16/2017 OVI KHOURY, WU Ot E03.9 HYPOTHYROIDISM, UNSPECIFIED 06/16/2017 OVI KHOURY, WU Ot E11.6 5 TYPE 2 DIABETES MELLITUS WITH HYPERGLYCE 06/16/2017 OVI KHOURY, JAYCOBFRANKIE Ot E78.5 HYPERLIPIDEMIA, UNSPECIFIED 06/16/2017 OVI KHOURY, JAYCOBFRANKIE Ot I10 ESSENTIAL (PRIMARY) HYPERTENSION 06/16/2017 OVI KHOURY, FLORIDALMAU Ot E03.9 HYPOTHYROIDISM, UNSPECIFIED 06/16/2017 OVI KHOURY, TORI-FRANKIE Ot E11.9 TYPE 2 DIABETES MELLITUS WITHOUT COMPLIC 06/16/2017 OVI KHOURY, WU Ot E78.5 HYPERLIPIDEMIA, UNSPECIFIED 06/16/2017 OVI KHOURY, JAYCOBFRANKIE Ot I10 ESSENTIAL (PRIMARY) HYPERTENSION 06/16/2017 SHIREEN AGARWAL Ot D64.9 ANEMIA, UNSPECIFIED 06/16/2017 SHIREEN AGARWAL Ot E03.9 HYPOTHYROIDISM, UNSPECIFIED 06/16/2017 SHIREEN AGARWAL Ot 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 06/16/2017 SHIREEN AGARWAL Ot I12.9 HYPERTENSIVE CHRONIC KIDNEY DISEASE W ST 06/16/2017 SHIREEN AGARWAL Ot I25.10 ATHSCL HEART DISEASE OF [place] CORONARY 06/16/2017 SHIREEN AGARWAL Ot I48.91 UNSPECIFIED ATRIAL FIBRILLATION 06/16/2017 SHIREEN AGARWAL Ot N18.3 CHRONIC KIDNEY DISEASE, STAGE 3 (MODERAT 06/16/2017 SHIREEN AGARWAL Ot Z79.899 OTHER JAIL (CURRENT) DRUG THERAPY 06/16/2017 BERNY ALCARAZ MD Ot I25.10 ATHSCL HEART DISEASE OF [place] CORONARY 06/16/2017 BERNY ALCARAZ MD Ot I25.10 ATHSCL HEART DISEASE OF [place] CORONARY 06/16/2017 KIERAN KHOURY, Wei BRANDON Ot I47 .1 SUPRAVENTRICULAR TACHYCARDIA 06/16/2017 Wei ALCARAZ MD Ot I48.91 UNSPECIFIED ATRIAL FIBRILLATION 06/16/2017 SABRINA ROSSI DO Ot D50. 9 IRON DEFICIENCY ANEMIA, UNSPECIFIED 06/16/2017 SABRINA ROSSI DO Ot R19. 5 OTHER FECAL ABNORMALITIES 06/16/2017 ROSSI SABRINA WOOD Ot Z01.818 ENCOUNTER FOR OTHER PREPROCEDURAL EXAMIN 06/16/2017 SABRINA ROSSI DO Ot Z80. 0 FAMILY HISTORY OF MALIGNANT NEOPLASM OF 06/16/2017 FLO WOODSABRINA Ot D64. 9 ANEMIA, UNSPECIFIED 06/16/2017 ROSSISABRINA ALCOCER DO Ot E03. 9 HYPOTHYROIDISM, UNSPECIFIED 06/16/2017 SABRINA ROSSI DO Ot E11. 9 TYPE 2 DIABETES MELLITUS WITHOUT COMPLIC 06/16/2017 SABRINA ROSSI DO Ot K59. 09 OTHER CONSTIPATION 06/16/2017 SABRINA ROSSI DO Ot K29. 80 DUODENITIS WITHOUT BLEEDING 06/16/2017 SHIREEN AGARWAL Ot D64.9 ANEMIA, UNSPECIFIED 06/16/2017 BRIAN KHOURY, JAMES Champion Ot E03.9 HYPOTHYROIDISM, UNSPECIFIED 06/16/2017 BRIAN KHOURY, JAMES Champion Ot E11.9 TYPE 2 DIABETES MELLITUS WITHOUT COMPLIC 06/16/2017 BRIAN KHOURY, JAMES R Ot I10 ESSENTIAL (PRIMARY) HYPERTENSION 06/16/2017 ROSSI SABRINA Ot D64. 9 ANEMIA, UNSPECIFIED 06/16/2017 SABRINA ROSSI DO Ot K76. 89 OTHER SPECIFIED DISEASES OF LIVER 06/16/2017 ROSSI SABRINA WOOD Ot K82. 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 06/22/2017 SHIREEN AGARWAL Ot I12.9 HYPERTENSIVE CHRONIC KIDNEY DISEASE W ST 06/22/2017 SHIREEN AGARWAL Ot I25.10 ATHSCL HEART DISEASE OF [place] CORONARY 06/22/2017 SHIREEN AGARWAL Ot I48.91 UNSPECIFIED ATRIAL FIBRILLATION 06/22/2017 SHIREEN AGARWAL Ot N18.3 CHRONIC KIDNEY DISEASE, STAGE 3 (MODERAT 06/22/2017 SHIREEN AGARWAL Ot Z79.899 OTHER JAIL (CURRENT) DRUG THERAPY 07/07/2017 ANY, BOBAN N Ot D50.9 IRON DEFICIENCY ANEMIA, UNSPECIFIED 07/07/2017 SHIREEN AGARWAL N Ot E03.9 HYPOTHYROIDISM, UNSPECIFIED 07/07/2017 SHIREEN AGARWAL N Ot 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 07/07/2017 SHIREEN AGARWAL N Ot I12.9 HYPERTENSIVE CHRONIC KIDNEY DISEASE W ST 07/07/2017 SHIREEN AGARWAL N Ot I25.10 ATHSCL HEART DISEASE OF [place] CORONARY 07/07/2017 SHIREEN AGARWAL N Ot I48.91 UNSPECIFIED ATRIAL FIBRILLATION 07/07/2017 SHIREEN AGARWAL N Ot N18.3 CHRONIC KIDNEY DISEASE, STAGE 3 (MODERAT 07/07/2017 SHIREEN AGARWAL N Ot Z79.899 OTHER POOL LIFEGUARD (CURRENT) DRUG THERAPY 07/07/2017 MELIZA KHOURY, BRANDEN Ot D50.9 IRON DEFICIENCY ANEMIA, UNSPECIFIED 07/07/2017 BRANDEN HAIDER MD Ot E03.9 HYPOTHYROIDISM, UNSPECIFIED 07/07/2017 MELIZA KHOURY, BRANDEN Ot 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 07/07/2017 MELIZA KHOURY, BRANDEN Ot I12.9 HYPERTENSIVE CHRONIC KIDNEY DISEASE W ST 07/07/2017 MELIZA KHOURY, OTERO Ot I25.10 ATHSCL HEART DISEASE OF [place] CORONARY 07/07/2017 BRANDEN HAIDER MD Ot I48.91 UNSPECIFIED ATRIAL FIBRILLATION 07/07/2017 MELIZA KHOURY, BRANDEN Ot N18.3 CHRONIC KIDNEY DISEASE, STAGE 3 (MODERAT 07/07/2017 MELIZA KHOURY, BRANDEN Ot Z79.899 OTHER POOL LIFEGUARD (CURRENT) DRUG THERAPY 07/10/2017 RACHELE JEFFERSON PROP ATTENDANT Ot D64.89 OTHER SPECIFIED ANEMIAS 07/10/2017 RACHELE JEFFERSON PROP ATTENDANT Ot R06.02 SHORTNESS OF BREATH 07/17/2017 DELARIANA DO, CARMINE B Ot D12.0 BENIGN NEOPLASM OF CECUM 07/17/2017 GISSELL DO, CARMINE B Ot D12.2 BENIGN NEOPLASM OF ASCENDING COLON 07/17/2017 GISSELL DO, CARMINE B Ot D64.9 ANEMIA, UNSPECIFIED 07/17/2017 LUIZMAN DO, CARMINE B Ot E11.4 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 07/17/2017 GISSELL DO, CARMINE B Ot E66.0 1 MORBID (SEVERE) OBESITY DUE TO EXCESS CA 07/17/2017 GISSELL WOOD, CARMINE B Ot I10 ESSENTIAL (PRIMARY) HYPERTENSION 07/17/2017 LUIZARIANA DIVYA WOODIC B Ot I48.9 1 UNSPECIFIED ATRIAL FIBRILLATION 07/17/2017 GISSELL OWOD, CARMINE B Ot K29.5 0 UNSPECIFIED CHRONIC GASTRITIS WITHOUT BL 07/17/2017 GISSELL WOOD CARMINE B Ot K29.7 0 GASTRITIS, UNSPECIFIED, WITHOUT BLEEDING 07/17/2017 GISSELL WOOD CARMINE B Ot K31.7 POLYP OF STOMACH AND DUODENUM 07/17/2017 GISSELL WOOD CARMINE B Ot K57.3 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 07/17/2017 DIVYA BORRERO DOIC B Ot K63.5 POLYP OF COLON 07/17/2017 GISSELL WOOD CARMINE B Ot K64.8 OTHER HEMORRHOIDS 07/17/2017 DIVYA BORRERO DOIC B Ot 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 07/17/2017 GISSELL WOOD CARMINE B Ot Z68.4 2 BODY MASS INDEX (BMI) 45.0-49.9, ADULT 07/17/2017 LUIZARIANA WOOD CARMINE B Ot Z79.8 99 OTHER POOL LIFEGUARD (CURRENT) DRUG THERAPY 07/24/2017 LUIZARIANA DIVYA WOODIC B Ot D12.0 BENIGN NEOPLASM OF CECUM 07/24/2017 LUIZARIANA WOOD, CARMINE B Ot D12.2 BENIGN NEOPLASM OF ASCENDING COLON 07/24/2017 LUIZARIANA WOOD CARMINE B Ot D64.9 ANEMIA, UNSPECIFIED 07/24/2017 LUIZARIANA WOODDIVYAIC B Ot E11.4 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 07/24/2017 LUIZARIANA WOOD CARMINE B Ot E66.0 1 MORBID (SEVERE) OBESITY DUE TO EXCESS CA 07/24/2017 LUIZARIANA DO, CARMINE B Ot I10 ESSENTIAL (PRIMARY) HYPERTENSION 07/24/2017 LUIZARIANA DO CARMINE B Ot I48.9 1 UNSPECIFIED ATRIAL FIBRILLATION 07/24/2017 LUIZARIANA WOOD CARMINE B Ot K29.5 0 UNSPECIFIED CHRONIC GASTRITIS WITHOUT BL 07/24/2017 LUIZARIANA WOOD CARMINE B Ot K31.7 POLYP OF STOMACH AND DUODENUM 07/24/2017 GISSELL CARMINE B Ot K57.3 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 07/24/2017 GISSELL DO, CARMINE B Ot K64.8 OTHER HEMORRHOIDS 07/24/2017 GISSELL DO, CARMINE B Ot 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 07/24/2017 GISSELL DO, CARMINE B Ot Z68.4 2 BODY MASS INDEX (BMI) 45.0-49.9, ADULT 07/24/2017 DELARIANA DO, CARMINE B Ot Z79.8 99 OTHER POOL LIFEGUARD (CURRENT) DRUG THERAPY 07/24/2017 DELMAN DO, CARMINE B Ot D12.0 BENIGN NEOPLASM OF CECUM 07/24/2017 DELMAN DO, CARMINE B Ot D12.2 BENIGN NEOPLASM OF ASCENDING COLON 07/24/2017 DELARIANA DO, CARMINE B Ot D64.9 ANEMIA, UNSPECIFIED 07/24/2017 DELMAN DO, CARMINE B Ot E11.4 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 07/24/2017 DELARIANA DO, CARMINE B Ot E66.0 1 MORBID (SEVERE) OBESITY DUE TO EXCESS CA 07/24/2017 DELMAN DO, CARMINE B Ot I10 ESSENTIAL (PRIMARY) HYPERTENSION 07/24/2017 GISSELL DO, CARMINE B Ot I48.9 1 UNSPECIFIED ATRIAL FIBRILLATION 07/24/2017 DELMAN DO, CARMINE B Ot K29.5 0 UNSPECIFIED CHRONIC GASTRITIS WITHOUT BL 07/24/2017 DELARIANA DO, CARMINE B Ot K31.7 POLYP OF STOMACH AND DUODENUM 07/24/2017 GISSELL DO, CARMINE B Ot K57.3 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 07/24/2017 GISSELL DO, CARMINE B Ot K64.8 OTHER HEMORRHOIDS 07/24/2017 LUIZMAN DO, CARMINE B Ot 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 07/24/2017 DELARIANA DO, CARMINE B Ot Z68.4 2 BODY MASS INDEX (BMI) 45.0-49.9, ADULT 07/24/2017 DELARIANA DO, CARMINE B Ot Z79.8 99 OTHER JAIL (CURRENT) DRUG THERAPY 07/28/2017 MELIZA KHOURY, BRANDEN Ot D50.9 IRON DEFICIENCY ANEMIA, UNSPECIFIED 07/28/2017 BRANDEN HAIDER MD Ot E03.9 HYPOTHYROIDISM, UNSPECIFIED 07/28/2017 BRANDEN HAIDER MD Ot 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 07/28/2017 BRANDEN HAIDER MD Ot I12.9 HYPERTENSIVE CHRONIC KIDNEY DISEASE W ST 07/28/2017 BRANDEN HAIDER MD Ot I25.10 ATHSCL HEART DISEASE OF [place] CORONARY 07/28/2017 BRANDEN HAIDER MD Ot I48.91 UNSPECIFIED ATRIAL FIBRILLATION 07/28/2017 BRANDEN HAIDER MD Ot N18.3 CHRONIC KIDNEY DISEASE, STAGE 3 (MODERAT 07/28/2017 BRANDEN HAIDER MD Ot Z79.899 OTHER JAIL (CURRENT) DRUG THERAPY 07/29/2017 ANY, BOBAN N Ot D50.9 IRON DEFICIENCY ANEMIA, UNSPECIFIED 07/29/2017 ANY, BOBAN N Ot E03.9 HYPOTHYROIDISM, UNSPECIFIED 07/29/2017 ANY, BOBAN N Ot 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 07/29/2017 ANY, BOBAN N Ot I12.9 HYPERTENSIVE CHRONIC KIDNEY DISEASE W ST 07/29/2017 ANY, BOBAN N Ot I25.10 ATHSCL HEART DISEASE OF [place] CORONARY 07/29/2017 ANY, BOBAN N Ot I48.91 UNSPECIFIED ATRIAL FIBRILLATION 07/29/2017 ANY, BOBAN N Ot N18.3 CHRONIC KIDNEY DISEASE, STAGE 3 (MODERAT 07/29/2017 ANY, BOBAN N Ot Z79.899 OTHER POOL LIFEGUARD (CURRENT) DRUG THERAPY 08/11/2017 GISSELL DO, CARMINE B Ot D12.0 BENIGN NEOPLASM OF CECUM 08/11/2017 GISSELL DO, CARMINE B Ot D12.2 BENIGN NEOPLASM OF ASCENDING COLON 08/11/2017 GISSELL DO CARMINE B Ot D64.9 ANEMIA, UNSPECIFIED 08/11/2017 LUIZMAN DO, CARMINE B Ot E11.4 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 08/11/2017 GISSELL DO, CARMINE B Ot E66.0 1 MORBID (SEVERE) OBESITY DUE TO EXCESS CA 08/11/2017 GISSELL DO, CARMINE B Ot I10 ESSENTIAL (PRIMARY) HYPERTENSION 08/11/2017 GISSELL DO, CARMINE B Ot I48.9 1 UNSPECIFIED ATRIAL FIBRILLATION 08/11/2017 GISSLEL WOOD CARMINE B Ot K29.5 0 UNSPECIFIED CHRONIC GASTRITIS WITHOUT BL 08/11/2017 GISSELL DO CARMINE B Ot K31.7 POLYP OF STOMACH AND DUODENUM 08/11/2017 DIVYA BORRERO DOIC B Ot K57.3 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 08/11/2017 GISSELL WOOD CARMINE B Ot K64.8 OTHER HEMORRHOIDS 08/11/2017 GISSELL WOOD CARMINE B Ot 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 08/11/2017 GISSELL WOOD CARMINE B Ot Z68.4 2 BODY MASS INDEX (BMI) 45.0-49.9, ADULT 08/11/2017 GISSELL WOOD CARMINE B Ot Z79.8 99 OTHER POOL LIFEGUARD (CURRENT) DRUG THERAPY 09/02/2017 SHIREEN AGARWAL N Ot D50.9 IRON DEFICIENCY ANEMIA, UNSPECIFIED 09/02/2017 SHIREEN AGARWAL N Ot E03.9 HYPOTHYROIDISM, UNSPECIFIED 09/02/2017 SHIREEN AGARWAL N Ot 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 09/02/2017 SHIREEN AGARWAL N Ot I12.9 HYPERTENSIVE CHRONIC KIDNEY DISEASE W ST 09/02/2017 SHIREEN AGARWAL N Ot I25.10 ATHSCL HEART DISEASE OF [place] CORONARY 09/02/2017 SHIREEN AGARWAL N Ot I48.91 UNSPECIFIED ATRIAL FIBRILLATION 09/02/2017 SHIREEN AGARWAL N Ot N18.3 CHRONIC KIDNEY DISEASE, STAGE 3 (MODERAT 09/02/2017 JJ AGARWALAN N Ot Z79.899 OTHER JAIL (CURRENT) DRUG THERAPY 09/02/2017 Ot 250.00 AWA B NALLELY WO COMPL, TYPE II OR UNSPEC TY 09/02/2017 CHICHI RIVAS PROP ATTENDANT Ot 574.20 CHOLELITHIASIS NOS 09/02/2017 CHICHI RIVAS PROP ATTENDANT Ot 789.1 HEPATOMEGALY 09/02/2017 LINDA KHOURY FACC, ALI FACP CCDS Ot 401.9 HYPERTENSION NOS 09/02/2017 LINDA KHOURY FACC, ALI FACP CCDS Ot 414.00 CORON ATHEROSCLER NOS TYPE VESSEL, NATIV 09/02/2017 LINDA KHOURY FACC, ALI FACP CCDS Ot 427.31 ATRIAL FIBRILLATION 09/02/2017 TY KHOURY, TONEI Diaz Ot V72. 84 EXAM PRE-OPERATIVE NOS 09/02/2017 LINDA KHOURY FACC, ALI FACP CCDS Ot 250.00 DIAB NALLELY WO COMPL, TYPE II OR UNSPEC TY 09/02/2017 LINDA KHOURY FAC, ALI FACP CCDS Ot 401.9 HYPERTENSION NOS 09/02/2017 LINDA KHOURY FAC, ALI FACP CCDS Ot 427.0 PAROX ATRIAL TACHYCARDIA 09/02/2017 LINDA KHOURY FAC, ALI FACP CCDS Ot 785.1 PALPITATIONS 09/02/2017 Ot 244.9 HYPO THYROIDISM NOS 09/02/2017 Ot 280.9 IRON DEFIC ANEMIA NOS 09/02/2017 Ot 585.3 BLENDING MACHINE OPERATOR LEANDRO KIDNEY DISEASE, STAGE III (MODER 09/02/2017 Ot V58.69 OTH MED,LT,CURRENT USE 09/02/2017 Ot 250.02 AWA B NALLELY WO COMPL, TYPE II OR UNSPEC TY 09/02/2017 HARVEY KHOURY, CLAUDE S Ot 574.20 CHOLELITHIASIS NOS 09/02/2017 HARVEY KHOURY, CLAUDE Clement Ot 585.2 CHRONIC KIDNEY DISEASE, STAGE II (MILD) 09/02/2017 OVI KHOURY, TORI-FRANKIE Ot E03.9 HYPOTHYROIDISM, UNSPECIFIED 09/02/2017 OVI KHOURY, TORI-FRANKIE Ot E11.6 5 TYPE 2 DIABETES MELLITUS WITH HYPERGLYCE 09/02/2017 OVI KHOURY, TORI-FRANKIE Ot E78.5 HYPERLIPIDEMIA, UNSPECIFIED 09/02/2017 OVI KHOURY, TORI-FRANKIE Ot I10 ESSENTIAL (PRIMARY) HYPERTENSION 09/02/2017 OVI KHOURY, TORI-FRANKIE Ot E03.9 HYPOTHYROIDISM, UNSPECIFIED 09/02/2017 OVI KHOURY, TORI-FRANKIE Ot E11.9 TYPE 2 DIABETES MELLITUS WITHOUT COMPLIC 09/02/2017 OVI KHOURY, TORI-FRANKIE Ot E78.5 HYPERLIPIDEMIA, UNSPECIFIED 09/02/2017 OVI KHOURY, TORI-FRANKIE Ot I10 ESSENTIAL (PRIMARY) HYPERTENSION 09/02/2017 SHIREEN AGARWAL Ot D64.9 ANEMIA, UNSPECIFIED 09/02/2017 SHIREEN AGARWAL Ot E03.9 HYPOTHYROIDISM, UNSPECIFIED 09/02/2017 SHIREEN AGARWAL Ot 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 09/02/2017 SHIREEN AGARWAL Ot I12.9 HYPERTENSIVE CHRONIC KIDNEY DISEASE W ST 09/02/2017 SHIREEN AGARWAL Ot I25.10 ATHSCL HEART DISEASE OF [place] CORONARY 09/02/2017 SHIREEN AGARWAL Solange Ot I48.91 UNSPECIFIED ATRIAL FIBRILLATION 09/02/2017 SHIREEN AGARWAL Solange Ot N18.3 CHRONIC KIDNEY DISEASE, STAGE 3 (MODERAT 09/02/2017 SHIREEN AGARWAL Ot Z79.899 OTHER POOL LIFEGUARD (CURRENT) DRUG THERAPY 09/02/2017 KIERAN KHOURY, BERNY Champion Ot I25.10 ATHSCL HEART DISEASE OF [place] CORONARY 09/02/2017 BERNY ALCARAZ MD Ot I25.10 ATHSCL HEART DISEASE OF [place] CORONARY 09/02/2017 KIERAN KHOURY, Wei BRANDON Ot I47 .1 SUPRAVENTRICULAR TACHYCARDIA 09/02/2017 KIERAN KHOURY, Wei BRANDON Ot I48.91 UNSPECIFIED ATRIAL FIBRILLATION 09/02/2017 SABRINA ROSSI DO Ot D50. 9 IRON DEFICIENCY ANEMIA, UNSPECIFIED 09/02/2017 SABRINA ROSSI DO Ot R19. 5 OTHER FECAL ABNORMALITIES 09/02/2017 SABRINA ROSSI DO Ot Z01.818 ENCOUNTER FOR OTHER PREPROCEDURAL EXAMIN 09/02/2017 SABRINA ROSSI DO Ot Z80. 0 FAMILY HISTORY OF MALIGNANT NEOPLASM OF 09/02/2017 SABRINA ROSSI DO Ot D64. 9 ANEMIA, UNSPECIFIED 09/02/2017 SABRINA ROSSI DO Ot E03. 9 HYPOTHYROIDISM, UNSPECIFIED 09/02/2017 SABRINA ROSSI DO Ot E11. 9 TYPE 2 DIABETES MELLITUS WITHOUT COMPLIC 09/02/2017 SABRINA ROSSI DO Ot K59. 09 OTHER CONSTIPATION 09/02/2017 SABRINA ROSSI DO Ot K29. 80 DUODENITIS WITHOUT BLEEDING 09/02/2017 JAMES TORRES MD Ot E03.9 HYPOTHYROIDISM, UNSPECIFIED 09/02/2017 JAMES TORRES MD Ot E11.9 TYPE 2 DIABETES MELLITUS WITHOUT COMPLIC 09/02/2017 JAMES TORRES MD Ot I10 ESSENTIAL (PRIMARY) HYPERTENSION 09/02/2017 SABRINA ROSSI DO Ot D64. 9 ANEMIA, UNSPECIFIED 09/02/2017 ASBRINA ROSSI DO Ot K76. 89 OTHER SPECIFIED DISEASES OF LIVER 09/02/2017 SABRINA ROSSI DO Ot K82. 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 09/02/2017 ANY BOBAN N Ot I12.9 HYPERTENSIVE CHRONIC KIDNEY DISEASE W ST 09/02/2017 ANY, BOBAN N Ot I25.10 ATHSCL HEART DISEASE OF [place] CORONARY 09/02/2017 ANYJJAN N Ot I48.91 UNSPECIFIED ATRIAL FIBRILLATION 09/02/2017 ANY BOBAN N Ot N18.3 CHRONIC KIDNEY DISEASE, STAGE 3 (MODERAT 09/02/2017 ANY, JJAN N Ot Z79.899 OTHER JAIL (CURRENT) DRUG THERAPY 09/13/2017 JAMES TORRES MD Ot D50.9 IRON DEFICIENCY ANEMIA, UNSPECIFIED 09/13/2017 JAMES TORRES MD Ot E03.9 HYPOTHYROIDISM, UNSPECIFIED 09/13/2017 JAMES TORRES MD Ot E11.9 TYPE 2 DIABETES MELLITUS WITHOUT COMPLIC 09/13/2017 JAMES TORRES MD Ot E78.5 HYPERLIPIDEMIA, UNSPECIFIED 09/13/2017 JAMES TORRES MD Ot I10 ESSENTIAL (PRIMARY) HYPERTENSION 09/13/2017 JAMES TORRES MD Ot I25.1 0 ATHSCL HEART DISEASE OF [place] CORONARY 09/13/2017 JAMES TORRES MD Ot I48.9 1 UNSPECIFIED ATRIAL FIBRILLATION 09/13/2017 JAMES TORRES MD Ot L40.9 PSORIASIS, UNSPECIFIED 09/13/2017 JAMES TORRES MD Ot R07.8 9 OTHER CHEST PAIN 09/13/2017 JAMES TORRES MD Ot R51 HEADACHE 09/13/2017 JAMES TORRES MD Ot R60.0 LOCALIZED EDEMA 09/13/2017 JAMES TORRES MD Ot Z79.8 99 OTHER JAIL (CURRENT) DRUG THERAPY 09/13/2017 JAMES TORRES MD Ot Z87.8 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 09/13/2017 JAMES [...] (PRIMARY) HYPERTENSION 09/13/2017 JAMES TORRES MD Ot I25.1 0 ATHSCL HEART DISEASE OF [place] CORONARY 09/13/2017 JAMES TORRES MD Ot I48.9 1 UNSPECIFIED ATRIAL FIBRILLATION 09/13/2017 JAMES TORRES MD Ot L40.9 PSORIASIS, UNSPECIFIED 09/13/2017 JAMES TORRES MD Ot R07.8 9 OTHER CHEST PAIN 09/13/2017 JAMES TORRES MD Ot R51 HEADACHE 09/13/2017 JAMES TORRES MD Ot R60.0 LOCALIZED EDEMA 09/13/2017 JAMES TORRES MD Ot Z79.8 99 OTHER JAIL (CURRENT) DRUG THERAPY 09/13/2017 JAMES TORRES MD Ot Z87.8 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 09/13/2017 JAMES TORRES MD Ot Z88.8 ALLERGY STATUS TO OTH DRUG/MEDS/BIOL SUB 09/13/2017 JAMES TORRES MD Ot Z95.5 PRESENCE OF CORONARY ANGIOPLASTY IMPLANT 10/05/2017 TOMASA CARMONA MD Ot D64 .9 ANEMIA, UNSPECIFIED 10/05/2017 TOMASA CARMONA MD Ot E03 .9 HYPOTHYROIDISM, UNSPECIFIED 10/05/2017 TOMASA CARMONA MD Ot E11.65 TYPE 2 DIABETES MELLITUS WITH HYPERGLYCE 10/05/2017 TOMASA CARMONA MD Ot E66.01 MORBID (SEVERE) OBESITY DUE TO EXCESS CA 10/05/2017 TOMASA CARMONA MD Ot E78.00 PURE HYPERCHOLESTEROLEMIA, UNSPECIFIED 10/05/2017 TOMASA CARMONA MD, Ot E87 .5 HYPERKALEMIA 10/05/2017 TOMASA CARMONA MD, Ot I11 .9 HYPERTENSIVE HEART DISEASE WITHOUT HEART 10/05/2017 TOMASA CARMONA MD, Ot I21 .4 NON-ST ELEVATION (NSTEMI) MYOCARDIAL INF 10/05/2017 TOMASA CARMONA MD, Ot I48 .0 PAROXYSMAL ATRIAL FIBRILLATION 10/05/2017 TOMASA CARMONA MD, Ot I50 .9 HEART FAILURE, UNSPECIFIED 10/05/2017 TOMASA CARMONA MD, Ot K74.60 UNSPECIFIED CIRRHOSIS OF LIVER 10/05/2017 TOMASA CARMONA MD, Ot K92 .2 GASTROINTESTINAL HEMORRHAGE, UNSPECIFIED 10/05/2017 TOMASA CARMONA MD, Ot N17 .9 ACUTE KIDNEY FAILURE, UNSPECIFIED 10/05/2017 TOMASA CARMONA MD, Ot N30.00 ACUTE CYSTITIS WITHOUT HEMATURIA 10/05/2017 TOMASA CARMONA MD, Ot Z68.42 BODY MASS INDEX (BMI) 45.0-49.9, ADULT 10/05/2017 TOMASA CARMONA MD Ot Z79.84 JAIL (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 OF ORAL HYPOGLYC 10/05/2017 TOMASA CARMONA MD, Ot Z79.899 OTHER POOL LIFEGUARD (CURRENT) DRUG THERAPY 10/05/2017 TOMASA CARMONA MD, Ot Z87.8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 10/05/2017 TOMASA CARMONA MD, Ot Z88 .1 ALLERGY STATUS TO OTHER ANTIBIOTIC AGENT 10/05/2017 TOMASA CARMONA MD Ot Z95 .5 PRESENCE OF CORONARY ANGIOPLASTY IMPLANT 10/05/2017 TOMASA CARMONA MD, Ot D64 .9 ANEMIA, UNSPECIFIED 10/05/2017 TOMASA CARMONA MD, Ot E03 .9 HYPOTHYROIDISM, UNSPECIFIED 10/05/2017 TOMASA CARMONA MD, Ot E11.65 TYPE 2 DIABETES MELLITUS WITH HYPERGLYCE 10/05/2017 TOMASA CARMONA MD Ot E66.01 MORBID (SEVERE) OBESITY DUE TO EXCESS CA 10/05/2017 TOMASA CARMONA MD, Ot E78.00 PURE HYPERCHOLESTEROLEMIA, UNSPECIFIED 10/05/2017 TOMASA CARMONA MD Ot E87 .5 HYPERKALEMIA 10/05/2017 OTMASA CARMONA MD Ot I11 .9 HYPERTENSIVE HEART DISEASE WITHOUT HEART 10/05/2017 TOMASA CARMONA MD, Ot I21 .4 NON-ST ELEVATION (NSTEMI) MYOCARDIAL INF 10/05/2017 TOMASA CARMONA MD Ot I48 .0 PAROXYSMAL ATRIAL FIBRILLATION 10/05/2017 TOMASA CARMONA MD, Ot I50 .9 HEART FAILURE, UNSPECIFIED 10/05/2017 TOMASA CARMONA MD, Ot K74.60 UNSPECIFIED CIRRHOSIS OF LIVER 10/05/2017 TOMASA CARMONA MD, Ot K92 .2 GASTROINTESTINAL HEMORRHAGE, UNSPECIFIED 10/05/2017 TOMASA CARMONA MD, Ot N17 .9 ACUTE KIDNEY FAILURE, UNSPECIFIED 10/05/2017 TOMASA CARMONA MD, Ot N30.00 ACUTE CYSTITIS WITHOUT HEMATURIA 10/05/2017 TOMASA CARMONA MD, Ot Z68.42 BODY MASS INDEX (BMI) 45.0-49.9, ADULT 10/05/2017 TOMASA CARMONA MD, Ot Z79.84 POOL LIFEGUARD (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 OF ORAL HYPOGLYC 10/05/2017 TOMASA CARMONA MD, Ot Z79.899 OTHER JAIL (CURRENT) DRUG THERAPY 10/05/2017 TOMASA CARMONA MD, Ot Z87.8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 10/05/2017 TOMASA CARMONA MD, Ot Z88 .1 ALLERGY STATUS TO OTHER ANTIBIOTIC AGENT 10/05/2017 TOMASA CARMONA MD, Ot Z95 .5 PRESENCE OF CORONARY ANGIOPLASTY IMPLANT 10/05/2017 CHICHI RIVAS PROP ATTENDANT Ot 574.20 CHOLELITHIASIS NOS 10/05/2017 CHICHI RIVAS PROP ATTENDANT Ot 789.1 HEPATOMEGALY 10/05/2017 LINDA KHOURY FACC, ALI FACP CCDS Ot 401.9 HYPERTENSION NOS 10/05/2017 LINDA KHOURY FACC, ALI FACP CCDS Ot 414.00 CORON ATHEROSCLER NOS TYPE VESSEL, NATIV 10/05/2017 LINDA KHOURY FACC, ALI FACP CCDS Ot 427.31 ATRIAL FIBRILLATION 10/05/2017 TY KHOURY, TONIE Diaz Ot V72. 84 EXAM PRE-OPERATIVE NOS 10/05/2017 LINDA KHOURY FACC, ALI FACP CCDS Ot 250.00 DIAB NALLELY WO COMPL, TYPE II OR UNSPEC TY 10/05/2017 LINDA KHOURY FACC, ALI FACP CCDS Ot 401.9 HYPERTENSION NOS 10/05/2017 LINDA KHOURY FACC, ALI FACP CCDS Ot 427.0 PAROX ATRIAL TACHYCARDIA 10/05/2017 LINDA KHOURY FACC, ALI FACP CCDS Ot 785.1 PALPITATIONS 10/05/2017 Ot 244.9 HYPO THYROIDISM NOS 10/05/2017 Ot 280.9 IRON DEFIC ANEMIA NOS 10/05/2017 Ot 585.3 BLENDING MACHINE OPERATOR LEANDRO KIDNEY DISEASE, STAGE III (MODER 10/05/2017 Ot V58.69 OTH MED,LT,CURRENT USE 10/05/2017 Ot 250.02 AWA B NALLELY YODER COMPL, TYPE II OR UNSPEC TY 10/05/2017 HARVEY KHOURY, CLAUDE S Ot 574.20 CHOLELITHIASIS NOS 10/05/2017 HARVEY KHOURY, AHJONELLE S Ot 585.2 CHRONIC KIDNEY DISEASE, STAGE II (MILD) 10/05/2017 OVI KHOURY, TORI-FRANKIE Ot E03.9 HYPOTHYROIDISM, UNSPECIFIED 10/05/2017 OVI KHOURY, TORI-FRANKIE Ot E11.6 5 TYPE 2 DIABETES MELLITUS WITH HYPERGLYCE 10/05/2017 OVI KHOURY, TORI-FRANKIE Ot E78.5 HYPERLIPIDEMIA, UNSPECIFIED 10/05/2017 OVI KHOURY, TORI-FRANKIE Ot I10 ESSENTIAL (PRIMARY) HYPERTENSION 10/05/2017 TORI DIOR MD-FRANKIE Ot E03.9 HYPOTHYROIDISM, UNSPECIFIED 10/05/2017 OVI KHOURY, TORI-FRANKIE Ot E11.9 TYPE 2 DIABETES MELLITUS WITHOUT COMPLIC 10/05/2017 OVI KHOURY, TORI-FRANKIE Ot E78.5 HYPERLIPIDEMIA, UNSPECIFIED 10/05/2017 OVI KHOURY, TORI-FRANKIE Ot I10 ESSENTIAL (PRIMARY) HYPERTENSION 10/05/2017 SHIREEN AGARWAL Ot D64.9 ANEMIA, UNSPECIFIED 10/05/2017 SHIREEN AGARWAL Ot E03.9 HYPOTHYROIDISM, UNSPECIFIED 10/05/2017 SHIREEN AGARWAL Ot 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 10/05/2017 SHIREEN AGARWAL Ot I12.9 HYPERTENSIVE CHRONIC KIDNEY DISEASE W ST 10/05/2017 SHIREEN AGARWAL Ot I25.10 ATHSCL HEART DISEASE OF [place] CORONARY 10/05/2017 SHIREEN AGARWAL Solange Ot I48.91 UNSPECIFIED ATRIAL FIBRILLATION 10/05/2017 SHIREEN AGARWAL Ot N18.3 CHRONIC KIDNEY DISEASE, STAGE 3 (MODERAT 10/05/2017 SHIREEN AGARWAL Ot Z79.899 OTHER POOL LIFEGUARD (CURRENT) DRUG THERAPY 10/05/2017 BERNY ALCARAZ MD Ot I25.10 ATHSCL HEART DISEASE OF [place] CORONARY 10/05/2017 BERNY ALCARAZ MD Ot I25.10 ATHSCL HEART DISEASE OF [place] CORONARY 10/05/2017 KIERAN KHOURY, Wei BRANDON Ot I47 .1 SUPRAVENTRICULAR TACHYCARDIA 10/05/2017 KIERAN KHOURY, Wei BRANDON Ot I48.91 UNSPECIFIED ATRIAL FIBRILLATION 10/05/2017 SABRINA ROSSI DO Ot D50. 9 IRON DEFICIENCY ANEMIA, UNSPECIFIED 10/05/2017 SABRINA ROSSI DO Ot R19. 5 OTHER FECAL ABNORMALITIES 10/05/2017 SABRINA ROSSI DO Ot Z01.818 ENCOUNTER FOR OTHER PREPROCEDURAL EXAMIN 10/05/2017 SABRINA ROSSI DO Ot Z80. 0 FAMILY HISTORY OF MALIGNANT NEOPLASM OF 10/05/2017 SABRINA ROSSI DO Ot D64. 9 ANEMIA, UNSPECIFIED 10/05/2017 SABRINA ROSSI DO Ot E03. 9 HYPOTHYROIDISM, UNSPECIFIED 10/05/2017 SABRINA ROSSI DO Ot E11. 9 TYPE 2 DIABETES MELLITUS WITHOUT COMPLIC 10/05/2017 SABRINA ROSSI DO Ot K59. 09 OTHER CONSTIPATION 10/05/2017 SABRINA ROSSI DO Ot K29. 80 DUODENITIS WITHOUT BLEEDING 10/05/2017 JAMES TORRES MD Ot E03.9 HYPOTHYROIDISM, UNSPECIFIED 10/05/2017 JAMES TORRES MD Ot E11.9 TYPE 2 DIABETES MELLITUS WITHOUT COMPLIC 10/05/2017 JAMES TORRES MD Ot I10 ESSENTIAL (PRIMARY) HYPERTENSION 10/05/2017 SABRINA ROSSI DO D Ot D64. 9 ANEMIA, UNSPECIFIED 10/05/2017 SABRINA ROSSI DO Ot K76. 89 OTHER SPECIFIED DISEASES OF LIVER 10/05/2017 SABRINA ROSSI DO Ot K82. 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 10/05/2017 ANY, BOBAN N Ot I12.9 HYPERTENSIVE CHRONIC KIDNEY DISEASE W ST 10/05/2017 ANY, BOBAN N Ot I25.10 ATHSCL HEART DISEASE OF [place] CORONARY 10/05/2017 ANY, BOBAN N Ot I48.91 UNSPECIFIED ATRIAL FIBRILLATION 10/05/2017 ANY, BOBAN N Ot N18.3 CHRONIC KIDNEY DISEASE, STAGE 3 (MODERAT 10/05/2017 ANY, BOBAN N Ot Z79.899 OTHER POOL LIFEGUARD (CURRENT) DRUG THERAPY 10/26/2017 ANY, BOBAN N Ot D50.9 IRON DEFICIENCY ANEMIA, UNSPECIFIED 10/26/2017 ANY, BOBAN N Ot E03.9 HYPOTHYROIDISM, UNSPECIFIED 10/26/2017 ANY, BOBAN N Ot 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 10/26/2017 ANY, BOBAN N Ot I12.9 HYPERTENSIVE CHRONIC KIDNEY DISEASE W ST 10/26/2017 ANY, BOBAN N Ot I25.10 ATHSCL HEART DISEASE OF [place] CORONARY 10/26/2017 ANY, BOBAN N Ot I48.91 UNSPECIFIED ATRIAL FIBRILLATION 10/26/2017 NAY, BOBAN N Ot N18.3 CHRONIC KIDNEY DISEASE, STAGE 3 (MODERAT 10/26/2017 ANY, BOBAN N Ot Z79.899 OTHER JAIL (CURRENT) DRUG THERAPY 10/27/2017 ANY, BOBAN N Ot D50.9 IRON DEFICIENCY ANEMIA, UNSPECIFIED 10/27/2017 ANY, BOBAN N Ot E03.9 HYPOTHYROIDISM, UNSPECIFIED 10/27/2017 ANY, BOBAN N Ot 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 10/27/2017 ANY, BOBAN N Ot I12.9 HYPERTENSIVE CHRONIC KIDNEY DISEASE W ST 10/27/2017 ANY, BOBAN N Ot I25.10 ATHSCL HEART DISEASE OF [place] CORONARY 10/27/2017 ANY, BOBAN N Ot I48.91 UNSPECIFIED ATRIAL FIBRILLATION 10/27/2017 ANY, BOBAN N Ot N18.3 CHRONIC KIDNEY DISEASE, STAGE 3 (MODERAT 10/27/2017 ANY, BOBAN N Ot Z79.899 OTHER POOL LIFEGUARD (CURRENT) DRUG THERAPY 10/28/2017 ANY, BOBAN N Ot D50.9 IRON DEFICIENCY ANEMIA, UNSPECIFIED 10/28/2017 ANY, BOBAN N Ot E03.9 HYPOTHYROIDISM, UNSPECIFIED 10/28/2017 ANY, BOBAN N Ot 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 10/28/2017 ANY, BOBAN N Ot I12.9 HYPERTENSIVE CHRONIC KIDNEY DISEASE W ST 10/28/2017 ANY, BOBAN N Ot I25.10 ATHSCL HEART DISEASE OF [place] CORONARY 10/28/2017 ANY, BOBAN N Ot I48.91 UNSPECIFIED ATRIAL FIBRILLATION 10/28/2017 ANY, BOBAN N Ot N18.3 CHRONIC KIDNEY DISEASE, STAGE 3 (MODERAT 10/28/2017 ANY, BOBAN N Ot Z79.899 OTHER JAIL (CURRENT) DRUG THERAPY 10/28/2017 ANY, BOBAN N Ot D50.9 IRON DEFICIENCY ANEMIA, UNSPECIFIED 10/28/2017 ANY, BOBAN N Ot E03.9 HYPOTHYROIDISM, UNSPECIFIED 10/28/2017 ANY, BOBAN N Ot 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 10/28/2017 ANY, BOBAN N Ot I12.9 HYPERTENSIVE CHRONIC KIDNEY DISEASE W ST 10/28/2017 ANY, BOBAN N Ot I25.10 ATHSCL HEART DISEASE OF [place] CORONARY 10/28/2017 ANY, BOBAN N Ot I48.91 UNSPECIFIED ATRIAL FIBRILLATION 10/28/2017 ANY, BOBAN N Ot N18.3 CHRONIC KIDNEY DISEASE, STAGE 3 (MODERAT 10/28/2017 ANY, BOBAN N Ot Z79.899 OTHER POOL LIFEGUARD (CURRENT) DRUG THERAPY 10/28/2017 ANY, BOBAN N Ot D50.9 IRON DEFICIENCY ANEMIA, UNSPECIFIED 10/28/2017 ANY, BOBAN N Ot E03.9 HYPOTHYROIDISM, UNSPECIFIED 10/28/2017 ANY, BOBAN N Ot 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 10/28/2017 ANY, BOBAN N Ot I12.9 HYPERTENSIVE CHRONIC KIDNEY DISEASE W ST 10/28/2017 JJ AGARWALAN N Ot I25.10 ATHSCL HEART DISEASE OF [place] CORONARY 10/28/2017 ANY, BOBAN N Ot I48.91 UNSPECIFIED ATRIAL FIBRILLATION 10/28/2017 ANY, BOBAN N Ot N18.3 CHRONIC KIDNEY DISEASE, STAGE 3 (MODERAT 10/28/2017 ANY, BOBAN N Ot Z79.899 OTHER POOL LIFEGUARD (CURRENT) DRUG THERAPY 11/06/2017 KIERAN KHOURY, Wei BRANDON Ot I47 .1 SUPRAVENTRICULAR TACHYCARDIA 11/06/2017 KIERAN KHOURY, Wei BRANDON Ot I48.91 UNSPECIFIED ATRIAL FIBRILLATION 11/06/2017 ANY BOBAN N Ot D50.9 IRON DEFICIENCY ANEMIA, UNSPECIFIED 11/06/2017 SHIREEN AGARWAL N Ot E03.9 HYPOTHYROIDISM, UNSPECIFIED 11/06/2017 ANY, BOBAN N Ot 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 11/06/2017 ANYSHIREEN BALDWIN N Ot I12.9 HYPERTENSIVE CHRONIC KIDNEY DISEASE W ST 11/06/2017 ANY BOBAN N Ot I25.10 ATHSCL HEART DISEASE OF [place] CORONARY 11/06/2017 JJ AGARWALAN N Ot I48.91 UNSPECIFIED ATRIAL FIBRILLATION 11/06/2017 SHIREEN AGARWAL N Ot N18.3 CHRONIC KIDNEY DISEASE, STAGE 3 (MODERAT 11/06/2017 ANY BOBAN N Ot Z79.899 OTHER JAIL (CURRENT) DRUG THERAPY 11/07/2017 TOMASA CARMONA MD Ot D50 .9 IRON DEFICIENCY ANEMIA, UNSPECIFIED 11/07/2017 TOMASA CARMONA MD Ot E11 .9 TYPE 2 DIABETES MELLITUS WITHOUT COMPLIC 11/07/2017 TOMASA CARMONA MD Ot I11 .0 HYPERTENSIVE HEART DISEASE WITH HEART FA 11/07/2017 TOMASA CARMONA MD Ot I25.10 ATHSCL HEART DISEASE OF [place] CORONARY 11/07/2017 TOMASA CARMONA MD Ot I25 .2 OLD MYOCARDIAL INFARCTION 11/07/2017 TOMASA CARMONA MD Ot I48.91 UNSPECIFIED ATRIAL FIBRILLATION 11/07/2017 TOMASA CARMONA MD Ot I50 .9 HEART FAILURE, UNSPECIFIED 11/07/2017 TOMASA CARMONA MD Ot K21 .9 GASTRO-ESOPHAGEAL REFLUX DISEASE WITHOUT 11/07/2017 TOMASA CARMONA MD Ot N19 UNSPECIFIED KIDNEY FAILURE 11/07/2017 TOMASA CARMONA MD Ot Z79.84 JAIL (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 OF ORAL HYPOGLYC 11/07/2017 TOMASA CARMONA MD Ot Z79.899 OTHER JAIL (CURRENT) DRUG THERAPY 11/07/2017 TOMASA CARMONA MD Ot Z87.8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 11/10/2017 TOMASA CARMONA MD Ot D50 .9 IRON DEFICIENCY ANEMIA, UNSPECIFIED 11/10/2017 TOMASA CARMONA MD Ot E11 .9 TYPE 2 DIABETES MELLITUS WITHOUT COMPLIC 11/10/2017 TOMASA CARMONA MD Ot I11 .0 HYPERTENSIVE HEART DISEASE WITH HEART FA 11/10/2017 TOMASA CARMONA MD Ot I25.10 ATHSCL HEART DISEASE OF [place] CORONARY 11/10/2017 TOMASA CARMONA MD Ot I25 .2 OLD MYOCARDIAL INFARCTION 11/10/2017 TOMASA CARMONA MD Ot I48.91 UNSPECIFIED ATRIAL FIBRILLATION 11/10/2017 TOMASA CARMONA MD Ot I50 .9 HEART FAILURE, UNSPECIFIED 11/10/2017 TOMASA CARMONA MD Ot K21 .9 GASTRO-ESOPHAGEAL REFLUX DISEASE WITHOUT 11/10/2017 TOMASA CARMONA MD Ot N19 UNSPECIFIED KIDNEY FAILURE 11/10/2017 TOMASA CARMONA MD Ot Z79.84 POOL LIFEGUARD (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 OF ORAL HYPOGLYC 11/10/2017 TOMASA CARMONA MD Ot Z79.899 OTHER JAIL (CURRENT) DRUG THERAPY 11/10/2017 TOMASA CARMONA MD Ot Z87.8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 11/12/2017 TOMASA CARMONA MD Ot D50 .9 IRON DEFICIENCY ANEMIA, UNSPECIFIED 11/12/2017 TOMASA CARMONA MD Ot E11 .9 TYPE 2 DIABETES MELLITUS WITHOUT COMPLIC 11/12/2017 TOMASA CARMONA MD Ot I11 .0 HYPERTENSIVE HEART DISEASE WITH HEART FA 11/12/2017 TOMASA CARMONA MD, Ot I25.10 ATHSCL HEART DISEASE OF [place] CORONARY 11/12/2017 TOMASA CARMONA MD, Ot I25 .2 OLD MYOCARDIAL INFARCTION 11/12/2017 TOMASA CARMONA MD Ot I48.91 UNSPECIFIED ATRIAL FIBRILLATION 11/12/2017 TOMASA CARMONA MD Ot I50 .9 HEART FAILURE, UNSPECIFIED 11/12/2017 TOMASA CARMONA MD Ot K21 .9 GASTRO-ESOPHAGEAL REFLUX DISEASE WITHOUT 11/12/2017 TOMASA CARMONA MD, Ot N19 UNSPECIFIED KIDNEY FAILURE 11/12/2017 TOMASA CARMONA MD, Ot Z79.84 POOL LIFEGUARD (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 OF ORAL HYPOGLYC 11/12/2017 TOMASA CARMONA MD Ot Z79.899 OTHER POOL LIFEGUARD (CURRENT) DRUG THERAPY 11/12/2017 TOMASA CARMONA MD Ot Z87.8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 11/12/2017 KIERAN KHOURY, M ROMA Ot R06.02 SHORTNESS OF BREATH 11/18/2017 KELLY KHOURY, ERMIAS Ot D50 .9 IRON DEFICIENCY ANEMIA, UNSPECIFIED 11/18/2017 KELLY KHOURY, ERMIAS Ot R11 .2 NAUSEA WITH VOMITING, UNSPECIFIED 11/24/2017 SHIREEN AGARWAL Ot D50.9 IRON DEFICIENCY ANEMIA, UNSPECIFIED 11/24/2017 SHIREEN AGARWAL Ot E03.9 HYPOTHYROIDISM, UNSPECIFIED 11/24/2017 SHIREEN AGARWAL Ot 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 11/24/2017 SHIREEN AGARWAL Ot I12.9 HYPERTENSIVE CHRONIC KIDNEY DISEASE W ST 11/24/2017 SHIREEN AGARWAL Ot I25.10 ATHSCL HEART DISEASE OF [place] CORONARY 11/24/2017 SHIREEN AGARWAL Ot I48.91 UNSPECIFIED ATRIAL FIBRILLATION 11/24/2017 SHIREEN AGARWAL Ot N18.3 CHRONIC KIDNEY DISEASE, STAGE 3 (MODERAT 11/24/2017 SHIREEN AGARWAL Ot Z79.899 OTHER JAIL (CURRENT) DRUG THERAPY 11/30/2017 KELLY KHOURY, TUBA Ot D50 .9 IRON DEFICIENCY ANEMIA, UNSPECIFIED 11/30/2017 KELLY KHOURY, TUBA Ot R11 .2 NAUSEA WITH VOMITING, UNSPECIFIED 11/30/2017 KIERAN KHOURY, M ROMA Ot R06.02 SHORTNESS OF BREATH 01/25/2018 ANY, BOBAN N Ot D50.9 IRON DEFICIENCY ANEMIA, UNSPECIFIED 01/25/2018 ANY, BOBAN N Ot E03.9 HYPOTHYROIDISM, UNSPECIFIED 01/25/2018 ANY, BOBAN N Ot 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 01/25/2018 ANY, BOBAN N Ot I12.9 HYPERTENSIVE CHRONIC KIDNEY DISEASE W ST 01/25/2018 ANY, BOBAN N Ot I25.10 ATHSCL HEART DISEASE OF [place] CORONARY 01/25/2018 ANY, BOBAN N Ot I48.91 UNSPECIFIED ATRIAL FIBRILLATION 01/25/2018 ANY, BOBAN N Ot N18.3 CHRONIC KIDNEY DISEASE, STAGE 3 (MODERAT 01/25/2018 ANY, BOBAN N Ot Z79.899 OTHER JAIL (CURRENT) DRUG THERAPY 02/04/2018 ANY, BOBAN N Ot D50.9 IRON DEFICIENCY ANEMIA, UNSPECIFIED 02/04/2018 ANY, BOBAN N Ot E03.9 HYPOTHYROIDISM, UNSPECIFIED 02/04/2018 ANY, BOBAN N Ot 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 02/04/2018 ANY, BOBAN N Ot I12.9 HYPERTENSIVE CHRONIC KIDNEY DISEASE W ST 02/04/2018 ANY, BOBAN N Ot I25.10 ATHSCL HEART DISEASE OF [place] CORONARY 02/04/2018 ANY, BOBAN N Ot I48.91 UNSPECIFIED ATRIAL FIBRILLATION 02/04/2018 ANY, BOBAN N Ot N18.3 CHRONIC KIDNEY DISEASE, STAGE 3 (MODERAT 02/04/2018 ANY, BOBAN N Ot Z79.899 OTHER POOL LIFEGUARD (CURRENT) DRUG THERAPY 02/12/2018 BRIAN KHOURY, JAMES R Ot D50.0 IRON DEFICIENCY ANEMIA SECONDARY TO BLOO 02/12/2018 BRIAN KHOURY, JAMES R Ot E03.9 HYPOTHYROIDISM, UNSPECIFIED 02/12/2018 BRIAN KHOURY, JAMES R Ot E11.6 5 TYPE 2 DIABETES MELLITUS WITH HYPERGLYCE 02/12/2018 JAMES TORRES MD, Ot E66.0 1 MORBID (SEVERE) OBESITY DUE TO EXCESS CA 02/12/2018 JAMES TORRES MD, Ot E78.5 HYPERLIPIDEMIA, UNSPECIFIED 02/12/2018 JAMES TORRES MD, Ot G89.2 9 OTHER CHRONIC PAIN 02/12/2018 JAMES TORRES MD, Ot I11.0 HYPERTENSIVE HEART DISEASE WITH HEART FA 02/12/2018 JAMES TORRES MD, Ot I21.4 NON-ST ELEVATION (NSTEMI) MYOCARDIAL INF 02/12/2018 JAMES TORERS MD, Ot I25.1 10 ATHSCL HEART DISEASE OF [place] COR ART W 02/12/2018 JAMES TORRES MD, Ot I48.2 CHRONIC ATRIAL FIBRILLATION 02/12/2018 JAMES TORRES MD, Ot I50.3 1 ACUTE DIASTOLIC (CONGESTIVE) HEART FAILU 02/12/2018 JAMES TORRES MD, Ot K92.2 GASTROINTESTINAL HEMORRHAGE, UNSPECIFIED 02/12/2018 JAMES TORRES MD, Ot M19.9 1 PRIMARY OSTEOARTHRITIS, UNSPECIFIED SITE 02/12/2018 JAMES TORRES MD, Ot Z68.4 1 BODY MASS INDEX (BMI) 40.0-44.9, ADULT 02/12/2018 JAMES TORRES MD, Ot Z80.3 FAMILY HISTORY OF MALIGNANT NEOPLASM OF 02/12/2018 JAMES TORRES MD, Ot Z87.8 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 02/12/2018 JAMES TORRES MD, Ot Z95.5 PRESENCE OF CORONARY ANGIOPLASTY IMPLANT 02/15/2018 SABRINA ROSSI DO Ot Z01.818 ENCOUNTER FOR OTHER PREPROCEDURAL EXAMIN 03/02/2018 SHIREEN AGARWAL Ot D50.9 IRON DEFICIENCY ANEMIA, UNSPECIFIED 03/02/2018 SHIREEN AGARWAL Ot E03.9 HYPOTHYROIDISM, UNSPECIFIED 03/02/2018 SHIREEN AGARWAL Ot 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 03/02/2018 SHIREEN AGARWAL Ot I12.9 HYPERTENSIVE CHRONIC KIDNEY DISEASE W ST 03/02/2018 SHIREEN AGARWAL Ot I25.10 ATHSCL HEART DISEASE OF [place] CORONARY 03/02/2018 SHIREEN AGARWAL Ot I48.91 UNSPECIFIED ATRIAL FIBRILLATION 03/02/2018 SHIREEN AGARWAL Solange Ot N18.3 CHRONIC KIDNEY DISEASE, STAGE 3 (MODERAT 03/02/2018 SHIREEN AGARWAL Solange Ot Z79.899 OTHER POOL LIFEGUARD (CURRENT) DRUG THERAPY 03/02/2018 MELIZA KHOURY, BRANDEN Ot D50.9 IRON DEFICIENCY ANEMIA, UNSPECIFIED 03/02/2018 MELIZA KHOURY, BRANDEN Ot E03.9 HYPOTHYROIDISM, UNSPECIFIED 03/02/2018 MELIZA KHOURY, BRANDEN Ot 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 03/02/2018 BRANDEN HAIDER MD Ot I12.9 HYPERTENSIVE CHRONIC KIDNEY DISEASE W ST 03/02/2018 BRANDEN HAIDER MD Ot I25.10 ATHSCL HEART DISEASE OF [place] CORONARY 03/02/2018 MELIZA KHOURY, BRANDEN Ot I48.91 UNSPECIFIED ATRIAL FIBRILLATION 03/02/2018 BRANDEN HAIDER MD Ot N18.3 CHRONIC KIDNEY DISEASE, STAGE 3 (MODERAT 03/02/2018 MELIZA KHOURY, BRANDEN Ot Z79.899 OTHER JAIL (CURRENT) DRUG THERAPY 03/03/2018 Ot 401.9 HYPE RTENSION NOS 03/03/2018 Ot 272.4 HYPE RLIPIDEMIA NEC/NOS 03/03/2018 Ot 250.00 AWA B NALLELY WO COMPL, TYPE II OR UNSPEC TY 03/03/2018 CHICHI RIVAS PROP ATTENDANT Ot 574.20 CHOLELITHIASIS NOS 03/03/2018 CHICHI RIVAS PROP ATTENDANT Ot 789.1 HEPATOMEGALY 03/03/2018 LINDA KHOURY FACC, ALI FACP CCDS Ot 401.9 HYPERTENSION NOS 03/03/2018 LINDA KHOURY FACC, ALI FACP CCDS Ot 414.00 CORON ATHEROSCLER NOS TYPE VESSEL, NATIV 03/03/2018 LINDA KHOURY FACC, ALI FACP CCDS Ot 427.31 ATRIAL FIBRILLATION 03/03/2018 TY KHOURY, TONIE Diaz Ot V72. 84 EXAM PRE-OPERATIVE NOS 03/03/2018 LINDA KHOURY FACC, ALI FACP CCDS Ot 250.00 DIAB NALLELY WO COMPL, TYPE II OR UNSPEC TY 03/03/2018 LINDA KHOURY FACC, ALI FACP CCDS Ot 401.9 HYPERTENSION NOS 03/03/2018 LINDA KHOURY FACC, ALI FACP CCDS Ot 427.0 PAROX ATRIAL TACHYCARDIA 03/03/2018 LINDA KHOURY FACC, ALI FACP CCDS Ot 785.1 PALPITATIONS 03/03/2018 Ot 244.9 HYPO THYROIDISM NOS 03/03/2018 Ot 280.9 IRON DEFIC ANEMIA NOS 03/03/2018 Ot 585.3 BLENDING MACHINE OPERATOR LEANDRO KIDNEY DISEASE, STAGE III (MODER 03/03/2018 Ot V58.69 OTH MED,LT,CURRENT USE 03/03/2018 Ot 250.02 AWA Eduardo BROWNING WO COMPL, TYPE II OR UNSPEC TY 03/03/2018 HARVEY KHOURY, CLAUDE S Ot 574.20 CHOLELITHIASIS NOS 03/03/2018 HARVEY KHOURY, CLAUDE S Ot 585.2 CHRONIC KIDNEY DISEASE, STAGE II (MILD) 03/03/2018 OVI KHOURY, WU Ot E03.9 HYPOTHYROIDISM, UNSPECIFIED 03/03/2018 OVI KHOURY, TORI-FRANKIE Ot E11.6 5 TYPE 2 DIABETES MELLITUS WITH HYPERGLYCE 03/03/2018 OVI KHOURY, TORI-FRANKIE Ot E78.5 HYPERLIPIDEMIA, UNSPECIFIED 03/03/2018 OVI KHOURY, TORI-FRANKIE Ot I10 ESSENTIAL (PRIMARY) HYPERTENSION 03/03/2018 OVI KHOURY, TORI-FRANKIE Ot E03.9 HYPOTHYROIDISM, UNSPECIFIED 03/03/2018 OVI KHOURY, TORI-FRANKIE Ot E11.9 TYPE 2 DIABETES MELLITUS WITHOUT COMPLIC 03/03/2018 OVI KHOURY, TORI-FRANKIE Ot E78.5 HYPERLIPIDEMIA, UNSPECIFIED 03/03/2018 OVI KHOURY, TORI-FRANKIE Ot I10 ESSENTIAL (PRIMARY) HYPERTENSION 03/03/2018 SHIREEN AGARWAL Ot D64.9 ANEMIA, UNSPECIFIED 03/03/2018 SHIREEN AGARWAL Ot E03.9 HYPOTHYROIDISM, UNSPECIFIED 03/03/2018 SHIREEN AGARWAL Ot 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 03/03/2018 SHIREEN AGARWAL Ot I12.9 HYPERTENSIVE CHRONIC KIDNEY DISEASE W ST 03/03/2018 SHIREEN AGARWAL Ot I25.10 ATHSCL HEART DISEASE OF [place] CORONARY 03/03/2018 SHIREEN AGARWAL Ot I48.91 UNSPECIFIED ATRIAL FIBRILLATION 03/03/2018 SHIREEN AGARWAL Ot N18.3 CHRONIC KIDNEY DISEASE, STAGE 3 (MODERAT 03/03/2018 SHIREEN AGARWAL Ot Z79.899 OTHER JAIL (CURRENT) DRUG THERAPY 03/03/2018 KIERAN KHOURY, BERNY Champion Ot I25.10 ATHSCL HEART DISEASE OF [place] CORONARY 03/03/2018 BERNY ALCARAZ MD Ot I25.10 ATHSCL HEART DISEASE OF [place] CORONARY 03/03/2018 KIERAN KHOURY, Wei BRANDON Ot I47 .1 SUPRAVENTRICULAR TACHYCARDIA 03/03/2018 KIERAN KHOURY, Wei BRANDON Ot I48.91 UNSPECIFIED ATRIAL FIBRILLATION 03/03/2018 FLO WOOD SABRINA D Ot D50. 9 IRON DEFICIENCY ANEMIA, UNSPECIFIED 03/03/2018 ROSSI DO SABRINA D Ot R19. 5 OTHER FECAL ABNORMALITIES 03/03/2018 FLO WOOD SABRINA D Ot Z01.818 ENCOUNTER FOR OTHER PREPROCEDURAL EXAMIN 03/03/2018 LALO ROSSI DOTT D Ot Z80. 0 FAMILY HISTORY OF MALIGNANT NEOPLASM OF 03/03/2018 FLO WOOD SABRINA D Ot D64. 9 ANEMIA, UNSPECIFIED 03/03/2018 FLO WOOD SABRINA D Ot E03. 9 HYPOTHYROIDISM, UNSPECIFIED 03/03/2018 FLO WOOD SABRINA D Ot E11. 9 TYPE 2 DIABETES MELLITUS WITHOUT COMPLIC 03/03/2018 FLO WOOD SABRINA D Ot K59. 09 OTHER CONSTIPATION 03/03/2018 FLO WOOD SABRINA D Ot K29. 80 DUODENITIS WITHOUT BLEEDING 03/03/2018 BRIAN KHOURY, JAMES Champion Ot E03.9 HYPOTHYROIDISM, UNSPECIFIED 03/03/2018 JAMES TORRES MD Ot E11.9 TYPE 2 DIABETES MELLITUS WITHOUT COMPLIC 03/03/2018 BRIAN KHOURY, JAMES R Ot I10 ESSENTIAL (PRIMARY) HYPERTENSION 03/03/2018 FLO WOOD SABRINA D Ot D64. 9 ANEMIA, UNSPECIFIED 03/03/2018 ROSSI DO SABRINA D Ot K76. 89 OTHER SPECIFIED DISEASES OF LIVER 03/03/2018 FLO WOOD SABRINA D Ot K82. 1 HYDROPS OF GALLBLADDER 03/03/2018 RACHELE JEFFERSON PROP ATTENDANT Ot D64.89 OTHER SPECIFIED ANEMIAS 03/03/2018 RACHELE JEFFERSON PROP ATTENDANT Ot R06.02 SHORTNESS OF BREATH 03/03/2018 KIERAN KHOURY, Wei BRANDON Ot R06.02 SHORTNESS OF BREATH 03/03/2018 KELLY KHOURY, TUBRodrigo Ot D50 .9 IRON DEFICIENCY ANEMIA, UNSPECIFIED 03/03/2018 KELLY KHOURY, ERMIAS Ot R11 .2 NAUSEA WITH VOMITING, UNSPECIFIED 03/03/2018 SABRINA ROSSI DO Ot Z01.818 ENCOUNTER FOR OTHER PREPROCEDURAL EXAMIN 03/03/2018 MELIZA KHOURY, BRANDEN Ot D50.9 IRON DEFICIENCY ANEMIA, UNSPECIFIED 03/03/2018 MELIZA KHOURY, BRANDEN Ot E03.9 HYPOTHYROIDISM, UNSPECIFIED 03/03/2018 MELIZA KHOURY, BRANDEN Ot 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 03/03/2018 MELIZA KHOURY, BRANDEN Ot I12.9 HYPERTENSIVE CHRONIC KIDNEY DISEASE W ST 03/03/2018 MELIZA KHOURY, BRANDEN Ot I25.10 ATHSCL HEART DISEASE OF [place] CORONARY 03/03/2018 MELIZA KHOURY, BRANDEN Ot I48.91 UNSPECIFIED ATRIAL FIBRILLATION 03/03/2018 MEILZA KHOURY, BRANDEN Ot N18.3 CHRONIC KIDNEY DISEASE, STAGE 3 (MODERAT 03/03/2018 MELIZA KHOURY, BRANDEN Ot Z79.899 OTHER POOL LIFEGUARD (CURRENT) DRUG THERAPY 03/03/2018 CHICHI RIVAS PROP ATTENDANT Ot 574.20 CHOLELITHIASIS NOS 03/03/2018 CHICHI RIVAS PROP ATTENDANT Ot 789.1 HEPATOMEGALY 03/03/2018 LINDA KHOURY FACC, ALI FACP CCDS Ot 401.9 HYPERTENSION NOS 03/03/2018 LINDA KHOURY FACC, ALI FACP CCDS Ot 414.00 CORON ATHEROSCLER NOS TYPE VESSEL, NATIV 03/03/2018 LINDA KHOURY FACC, ALI FACP CCDS Ot 427.31 ATRIAL FIBRILLATION 03/03/2018 TY KHOURY, TONIE Diaz Ot V72. 84 EXAM PRE-OPERATIVE NOS 03/03/2018 LINDA KHOURY FACC, ALI FACP CCDS Ot 250.00 DIAB NALLELY WO COMPL, TYPE II OR UNSPEC TY 03/03/2018 LINDA KHOURY FACC, ALI FACP CCDS Ot 401.9 HYPERTENSION NOS 03/03/2018 LINDA KHOURY FACC, ALI FACP CCDS Ot 427.0 PAROX ATRIAL TACHYCARDIA 03/03/2018 LINDA KHOURY FACC, ALI FACP CCDS Ot 785.1 PALPITATIONS 03/03/2018 Ot 244.9 HYPO THYROIDISM NOS 03/03/2018 Ot 280.9 IRON DEFIC ANEMIA NOS 03/03/2018 Ot 585.3 BLENDING MACHINE OPERATOR LEANDRO KIDNEY DISEASE, STAGE III (MODER 03/03/2018 Ot V58.69 OTH MED,LT,CURRENT USE 03/03/2018 Ot 250.02 AWA Eduardo BROWNING WO COMPL, TYPE II OR UNSPEC TY 03/03/2018 HARVEY KHOURY, CLAUDE S Ot 574.20 CHOLELITHIASIS NOS 03/03/2018 HARVEY KHOURY, CLAUDE Clement Ot 585.2 CHRONIC KIDNEY DISEASE, STAGE II (MILD) 03/03/2018 OVI KHOURY, TORI-FRANKIE Ot E03.9 HYPOTHYROIDISM, UNSPECIFIED 03/03/2018 OVI KHOURY, TORI-FRANKIE Ot E11.6 5 TYPE 2 DIABETES MELLITUS WITH HYPERGLYCE 03/03/2018 OVI KHOURY, TORI-FRANKIE Ot E78.5 HYPERLIPIDEMIA, UNSPECIFIED 03/03/2018 OVI KHOURY, TORI-FRANKIE Ot I10 ESSENTIAL (PRIMARY) HYPERTENSION 03/03/2018 OVI KHOURY, TORI-FRANKIE Ot E03.9 HYPOTHYROIDISM, UNSPECIFIED 03/03/2018 OVI KHOURY, TORI-FRANKIE Ot E11.9 TYPE 2 DIABETES MELLITUS WITHOUT COMPLIC 03/03/2018 OVI KHOURY, TORI-FRANKIE Ot E78.5 HYPERLIPIDEMIA, UNSPECIFIED 03/03/2018 OVI KHOURY, TORI-FRANKIE Ot I10 ESSENTIAL (PRIMARY) HYPERTENSION 03/03/2018 SHIREEN AGARWAL Ot D64.9 ANEMIA, UNSPECIFIED 03/03/2018 SHIREEN AGARWAL Ot E03.9 HYPOTHYROIDISM, UNSPECIFIED 03/03/2018 SHIREEN AGARWAL Ot 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 03/03/2018 SHIREEN AGARWAL Ot I12.9 HYPERTENSIVE CHRONIC KIDNEY DISEASE W ST 03/03/2018 SHIREEN AGARWAL Ot I25.10 ATHSCL HEART DISEASE OF [place] CORONARY 03/03/2018 SHIREEN AGARWAL Ot I48.91 UNSPECIFIED ATRIAL FIBRILLATION 03/03/2018 SHIREEN AGARWAL Ot N18.3 CHRONIC KIDNEY DISEASE, STAGE 3 (MODERAT 03/03/2018 SHIREEN AGARWAL Ot Z79.899 OTHER JAIL (CURRENT) DRUG THERAPY 03/03/2018 KIERAN KHOURY, BERNY Champion Ot I25.10 ATHSCL HEART DISEASE OF [place] CORONARY 03/03/2018 KIERAN KHOURY, BERNY Champion Ot I25.10 ATHSCL HEART DISEASE OF [place] CORONARY 03/03/2018 KIERAN KHOURY, Wei BRANDON Ot I47 .1 SUPRAVENTRICULAR TACHYCARDIA 03/03/2018 KIERAN KHOURY, Wei BRANDON Ot I48.91 UNSPECIFIED ATRIAL FIBRILLATION 03/03/2018 ROSSI DO, SABRINA D Ot D50. 9 IRON DEFICIENCY ANEMIA, UNSPECIFIED 03/03/2018 ROSSI DO, SABRINA D Ot R19. 5 OTHER FECAL ABNORMALITIES 03/03/2018 ROSSI DO, SABRINA D Ot Z01.818 ENCOUNTER FOR OTHER PREPROCEDURAL EXAMIN 03/03/2018 ROSSI DO, SABRINA D Ot Z80. 0 FAMILY HISTORY OF MALIGNANT NEOPLASM OF 03/03/2018 ROSSI DO, SABRINA D Ot D64. 9 ANEMIA, UNSPECIFIED 03/03/2018 ROSSI DO, SABRINA D Ot E03. 9 HYPOTHYROIDISM, UNSPECIFIED 03/03/2018 ROSSI DO, SABRINA D Ot E11. 9 TYPE 2 DIABETES MELLITUS WITHOUT COMPLIC 03/03/2018 ROSSI DO, SABRINA D Ot K59. 09 OTHER CONSTIPATION 03/03/2018 ROSSI DO, SABRINA D Ot K29. 80 DUODENITIS WITHOUT BLEEDING 03/03/2018 BRIAN KHOURY, JAMES Champion Ot E03.9 HYPOTHYROIDISM, UNSPECIFIED 03/03/2018 BRIAN KHOURY, JAMES Champion Ot E11.9 TYPE 2 DIABETES MELLITUS WITHOUT COMPLIC 03/03/2018 BRIAN KHOURY, JAMES R Ot I10 ESSENTIAL (PRIMARY) HYPERTENSION 03/03/2018 ROSSI DO, SABRINA D Ot D64. 9 ANEMIA, UNSPECIFIED 03/03/2018 ROSSI DO, SABRINA D Ot K76. 89 OTHER SPECIFIED DISEASES OF LIVER 03/03/2018 ROSSI DO, SABRINA D Ot K82. 1 HYDROPS OF GALLBLADDER 03/03/2018 RACHELE JEFFERSON PROP ATTENDANT Ot D64.89 OTHER SPECIFIED ANEMIAS 03/03/2018 RACHELE JEFFERSON PROP ATTENDANT Ot R06.02 SHORTNESS OF BREATH 03/03/2018 KIERAN KHOURY, Wei BRANDON Ot R06.02 SHORTNESS OF BREATH 03/03/2018 KELLY KHOURY, TUBRodrigo Ot D50 .9 IRON DEFICIENCY ANEMIA, UNSPECIFIED 03/03/2018 KELLY KHOURY, TUBA Ot R11 .2 NAUSEA WITH VOMITING, UNSPECIFIED 03/03/2018 MELIZA KHOURY, OTERO Ot D50.9 IRON DEFICIENCY ANEMIA, UNSPECIFIED 03/03/2018 MELIZA KHOURY, OTERO Ot E03.9 HYPOTHYROIDISM, UNSPECIFIED 03/03/2018 MELIZA KHOURY, OTERO Ot 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 03/03/2018 MELIZA KHOURY, OTERO Ot I12.9 HYPERTENSIVE CHRONIC KIDNEY DISEASE W ST 03/03/2018 MELIZA KHOURY, OTERO Ot I25.10 ATHSCL HEART DISEASE OF [place] CORONARY 03/03/2018 MELIZA KHOURY OTERO Ot I48.91 UNSPECIFIED ATRIAL FIBRILLATION 03/03/2018 MELIZA KHOURY, OTERO Ot N18.3 CHRONIC KIDNEY DISEASE, STAGE 3 (MODERAT 03/03/2018 MELIZA KHOURY, OTERO Ot Z79.899 OTHER JAIL (CURRENT) DRUG THERAPY 03/05/2018 BRANDEN HAIDER MD Ot D50.9 IRON DEFICIENCY ANEMIA, UNSPECIFIED 03/05/2018 TAMARA HAIDER MDNER Ot E03.9 HYPOTHYROIDISM, UNSPECIFIED 03/05/2018 MELIZA KHOURY, OTERO Ot 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 03/05/2018 MELIZA KHOURY, OTERO Ot I12.9 HYPERTENSIVE CHRONIC KIDNEY DISEASE W ST 03/05/2018 MELIZA KHOURY, OTERO Ot I25.10 ATHSCL HEART DISEASE OF [place] CORONARY 03/05/2018 MELIZA KHOURY, OTERO Ot I48.91 UNSPECIFIED ATRIAL FIBRILLATION 03/05/2018 MELIZA KHOURY, OTERO Ot N18.3 CHRONIC KIDNEY DISEASE, STAGE 3 (MODERAT 03/05/2018 MELIZA KHOURY, OTERO Ot Z79.899 OTHER POOL LIFEGUARD (CURRENT) DRUG THERAPY 03/14/2018 BRANDEN HAIDER MD Ot D50.9 IRON DEFICIENCY ANEMIA, UNSPECIFIED 03/14/2018 MELIZA KHOURY, OTERO Ot E03.9 HYPOTHYROIDISM, UNSPECIFIED 03/14/2018 MELIZA KHOURY, OTERO Ot 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 03/14/2018 MELIZA KHOURY, OTERO Ot I12.9 HYPERTENSIVE CHRONIC KIDNEY DISEASE W ST 03/14/2018 MELIZA KHOURY, OTERO Ot I25.10 ATHSCL HEART DISEASE OF [place] CORONARY 03/14/2018 MELIZA KHOURY, OTERO Ot I48.91 UNSPECIFIED ATRIAL FIBRILLATION 03/14/2018 MELIZA KHOURY OTERO Ot N18.3 CHRONIC KIDNEY DISEASE, STAGE 3 (MODERAT 03/14/2018 MELIZA KHOURY, BRANDEN Ot Z79.899 OTHER JAIL (CURRENT) DRUG THERAPY 03/16/2018 KIERAN KHOURY, Wei BRANDON Ot R06.02 SHORTNESS OF BREATH 03/16/2018 KELLY KHOURY, ERMIAS Ot D50 .9 IRON DEFICIENCY ANEMIA, UNSPECIFIED 03/16/2018 KELLY KHOURY, TUBRodrigo Ot R11 .2 NAUSEA WITH VOMITING, UNSPECIFIED 03/16/2018 SABRINA ROSSI DO Ot Z01.818 ENCOUNTER FOR OTHER PREPROCEDURAL EXAMIN 03/16/2018 MELIZA KHOURY, BRANDEN Ot D50.9 IRON DEFICIENCY ANEMIA, UNSPECIFIED 03/16/2018 BRANDEN HAIDER MD Ot E03.9 HYPOTHYROIDISM, UNSPECIFIED 03/16/2018 MELIZA KHOURY, BRANDEN Ot 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 03/16/2018 BRANDEN HAIDER MD Ot I12.9 HYPERTENSIVE CHRONIC KIDNEY DISEASE W ST 03/16/2018 BRANDEN HAIDER MD Ot I25.10 ATHSCL HEART DISEASE OF [place] CORONARY 03/16/2018 MELIZA KHOURY, BRANDEN Ot I48.91 UNSPECIFIED ATRIAL FIBRILLATION 03/16/2018 MELIZA KHOURY, BRANDEN Ot N18.3 CHRONIC KIDNEY DISEASE, STAGE 3 (MODERAT 03/16/2018 MELIZA KHOURY, BRANDEN Ot Z79.899 OTHER JAIL (CURRENT) DRUG THERAPY 03/22/2018 NWAGWU ISIRE Jasmina SALES AGENT TRADING STAMPS Ot M79.89 OTHER SPECIFIED SOFT TISSUE DISORDERS 03/22/2018 NWAGWANNEL ShannonDORE O SALES AGENT TRADING STAMPS Ot M79.89 OTHER SPECIFIED SOFT TISSUE DISORDERS 03/22/2018 CHICHI RIVAS PROP ATTENDANT Ot 574.20 CHOLELITHIASIS NOS 03/22/2018 CHICHI RIVAS PROP ATTENDANT Ot 789.1 HEPATOMEGALY 03/22/2018 LINDA KHOURY FACC, ARNIE GONZALESP CCDS Ot 401.9 HYPERTENSION NOS 03/22/2018 LINDA GONZALESC, ARNIE FACP CCDS Ot 414.00 CORON ATHEROSCLER NOS TYPE VESSEL, NATIV 03/22/2018 LINDA KHOURY FACC, ALI FACP CCDS Ot 427.31 ATRIAL FIBRILLATION 03/22/2018 TY KHOURY, TONIE Diaz Ot V72. 84 EXAM PRE-OPERATIVE NOS 03/22/2018 LINDA KHOURY FACC, ALI FACP CCDS Ot 250.00 DIAB NALLELY YODER COMPL, TYPE II OR UNSPEC TY 03/22/2018 LINDA KHOURY FACC, ALI FACP CCDS Ot 401.9 HYPERTENSION NOS 03/22/2018 LINDA KHOURY FACC, ALI FACP CCDS Ot 427.0 PAROX ATRIAL TACHYCARDIA 03/22/2018 LINDA KHOURY FACC, ALI FACP CCDS Ot 785.1 PALPITATIONS 03/22/2018 Ot 244.9 HYPO THYROIDISM NOS 03/22/2018 Ot 280.9 IRON DEFIC ANEMIA NOS 03/22/2018 Ot 585.3 BLENDING MACHINE OPERATOR LEANDRO KIDNEY DISEASE, STAGE III (MODER 03/22/2018 Ot V58.69 OTH MED,LT,CURRENT USE 03/22/2018 Ot 250.02 AWA B NALLELY YODER COMPL, TYPE II OR UNSPEC TY 03/22/2018 HARVEY KHOURY, CLAUDE S Ot 574.20 CHOLELITHIASIS NOS 03/22/2018 HARVEY KHOURY, CLAUDE S Ot 585.2 CHRONIC KIDNEY DISEASE, STAGE II (MILD) 03/22/2018 OVI KHOURY, TORI-FRANKIE Ot E03.9 HYPOTHYROIDISM, UNSPECIFIED 03/22/2018 OVI KHOURY, TORI-FRANKIE Ot E11.6 5 TYPE 2 DIABETES MELLITUS WITH HYPERGLYCE 03/22/2018 TORI DIOR MD-FRANKIE Ot E78.5 HYPERLIPIDEMIA, UNSPECIFIED 03/22/2018 OVI KHOURY, TORI-FRANKIE Ot I10 ESSENTIAL (PRIMARY) HYPERTENSION 03/22/2018 TORI DIOR MD-FRANKIE Ot E03.9 HYPOTHYROIDISM, UNSPECIFIED 03/22/2018 OVI KHOURY, TORI-FRANKIE Ot E11.9 TYPE 2 DIABETES MELLITUS WITHOUT COMPLIC 03/22/2018 OVI KHOURY, TORI-FRANKIE Ot E78.5 HYPERLIPIDEMIA, UNSPECIFIED 03/22/2018 OVI KHOURY, TORI-RFANKIE Ot I10 ESSENTIAL (PRIMARY) HYPERTENSION 03/22/2018 SHIREEN AGARWAL Ot D64.9 ANEMIA, UNSPECIFIED 03/22/2018 SHIREEN AGARWAL Ot E03.9 HYPOTHYROIDISM, UNSPECIFIED 03/22/2018 SHIREEN AGARWAL Ot 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 03/22/2018 SHIREEN AGARWAL Ot I12.9 HYPERTENSIVE CHRONIC KIDNEY DISEASE W ST 03/22/2018 SHIREEN AGARWAL Ot I25.10 ATHSCL HEART DISEASE OF [place] CORONARY 03/22/2018 SHIREEN AGARWAL Ot I48.91 UNSPECIFIED ATRIAL FIBRILLATION 03/22/2018 SHIREEN AGARWAL Solange Ot N18.3 CHRONIC KIDNEY DISEASE, STAGE 3 (MODERAT 03/22/2018 SHIREEN AGARWAL Ot Z79.899 OTHER JAIL (CURRENT) DRUG THERAPY 03/22/2018 BERNY ALCARAZ MD Ot I25.10 ATHSCL HEART DISEASE OF [place] CORONARY 03/22/2018 BERNY ALCARAZ MD Ot I25.10 ATHSCL HEART DISEASE OF [place] CORONARY 03/22/2018 KIERAN KHOURY, Wei BRANDON Ot I47 .1 SUPRAVENTRICULAR TACHYCARDIA 03/22/2018 Wei ALCARAZ MD Ot I48.91 UNSPECIFIED ATRIAL FIBRILLATION 03/22/2018 SABRINA ROSSI DO Ot D50. 9 IRON DEFICIENCY ANEMIA, UNSPECIFIED 03/22/2018 SABRINA ROSSI DO Ot R19. 5 OTHER FECAL ABNORMALITIES 03/22/2018 SABRINA ROSSI DO Ot Z01.818 ENCOUNTER FOR OTHER PREPROCEDURAL EXAMIN 03/22/2018 SABRINA ROSSI DO Ot Z80. 0 FAMILY HISTORY OF MALIGNANT NEOPLASM OF 03/22/2018 SABRINA ROSSI DO Ot D64. 9 ANEMIA, UNSPECIFIED 03/22/2018 SABRINA ROSSI DO Ot E03. 9 HYPOTHYROIDISM, UNSPECIFIED 03/22/2018 SABRINA ROSSI DO Ot E11. 9 TYPE 2 DIABETES MELLITUS WITHOUT COMPLIC 03/22/2018 SABRINA ROSSI DO Ot K59. 09 OTHER CONSTIPATION 03/22/2018 SABRINA ROSSI DO Ot K29. 80 DUODENITIS WITHOUT BLEEDING 03/22/2018 JAMES TORRES MD Ot E03.9 HYPOTHYROIDISM, UNSPECIFIED 03/22/2018 JAMES TORRES MD Ot E11.9 TYPE 2 DIABETES MELLITUS WITHOUT COMPLIC 03/22/2018 JAMES TORRES MD Ot I10 ESSENTIAL (PRIMARY) HYPERTENSION 03/22/2018 SABRINA ROSSI DO Ot D64. 9 ANEMIA, UNSPECIFIED 03/22/2018 SABRINA ROSSI DO Ot K76. 89 OTHER SPECIFIED DISEASES OF LIVER 03/22/2018 SABRINA ROSSI DO Ot K82. 1 HYDROPS OF GALLBLADDER 03/22/2018 RACHELE JEFFERSON PROP ATTENDANT Ot D64.89 OTHER SPECIFIED ANEMIAS 03/22/2018 RACHELE JEFFERSON PROP ATTENDANT Ot R06.02 SHORTNESS OF BREATH 03/22/2018 Wei ALCARAZ MD Ot R06.02 SHORTNESS OF BREATH 03/22/2018 ERMIAS MENDOZA MD Ot D50 .9 IRON DEFICIENCY ANEMIA, UNSPECIFIED 03/22/2018 KELLY KHOURY TUBA Ot R11 .2 NAUSEA WITH VOMITING, UNSPECIFIED 03/22/2018 NWAGWU, ISIDORE O SALES AGENT TRADING STAMPS Ot M79.89 OTHER SPECIFIED SOFT TISSUE DISORDERS 03/26/2018 NWAGWU, ISIDORE O SALES AGENT TRADING STAMPS Ot M79.89 OTHER SPECIFIED SOFT TISSUE DISORDERS 03/26/2018 NWAGWU, ISIDORE O SALES AGENT TRADING STAMPS Ot M79.89 OTHER SPECIFIED SOFT TISSUE DISORDERS 04/29/2018 Wei ALCARAZ MD Ot R06.02 SHORTNESS OF BREATH 04/29/2018 KELLY KHOURY TUBRodrigo Ot D50 .9 IRON DEFICIENCY ANEMIA, UNSPECIFIED 04/29/2018 KELLY KHOURY TUBA Ot R11 .2 NAUSEA WITH VOMITING, UNSPECIFIED 04/29/2018 SABRINA ROSSI DO Ot Z01.818 ENCOUNTER FOR OTHER PREPROCEDURAL EXAMIN 04/29/2018 BRANDEN HAIDER MD, Ot D50.9 IRON DEFICIENCY ANEMIA, UNSPECIFIED 04/29/2018 BRANDEN HAIDER MD Ot E03.9 HYPOTHYROIDISM, UNSPECIFIED 04/29/2018 BRANDEN HAIDER MD Ot 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 04/29/2018 BRANDEN HAIDER MD Ot I12.9 HYPERTENSIVE CHRONIC KIDNEY DISEASE W ST 04/29/2018 BRANDEN HAIDER MD Ot I25.10 ATHSCL HEART DISEASE OF [place] CORONARY 04/29/2018 BRANDEN HAIDER MD Ot I48.91 UNSPECIFIED ATRIAL FIBRILLATION 04/29/2018 BRANDEN HAIDER MD, Ot N18.3 CHRONIC KIDNEY DISEASE, STAGE 3 (MODERAT 04/29/2018 BRANDEN HAIDER MD Ot Z79.899 OTHER JAIL (CURRENT) DRUG THERAPY 05/03/2018 ERMIAS MENDOZA MD Ot Z53 .9 PROCEDURE AND TREATMENT NOT CARRIED OUT, 05/05/2018 RACHELE JEFFERSON PROP ATTENDANT Ot D64.9 ANEMIA, UNSPECIFIED 05/05/2018 RACHELE JEFFERSON PROP ATTENDANT Ot I87.2 VENOUS INSUFFICIENCY (CHRONIC) (PERIPHER 05/10/2018 RACHELE JEFFERSON PROP ATTENDANT Ot D64.9 ANEMIA, UNSPECIFIED 05/10/2018 RACHELE JEFFERSON PROP ATTENDANT Ot I87.2 VENOUS INSUFFICIENCY (CHRONIC) (PERIPHER 05/20/2018 BRANDEN HAIDER MD Ot D50.9 IRON DEFICIENCY ANEMIA, UNSPECIFIED 05/20/2018 BRANDEN HAIDER MD, Ot E03.9 HYPOTHYROIDISM, UNSPECIFIED 05/20/2018 BRANDEN HAIDER MD Ot 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 05/20/2018 BRANDEN HAIDER MD, Ot I12.9 HYPERTENSIVE CHRONIC KIDNEY DISEASE W ST 05/20/2018 BRANDEN HAIDER MD, Ot I25.10 ATHSCL HEART DISEASE OF [place] CORONARY 05/20/2018 BRANDEN HAIDER MD, Ot I48.91 UNSPECIFIED ATRIAL FIBRILLATION 05/20/2018 BRANDEN HAIDER MD, Ot N18.3 CHRONIC KIDNEY DISEASE, STAGE 3 (MODERAT 05/20/2018 BRANDEN HAIDER MD Ot Z79.899 OTHER JAIL (CURRENT) DRUG THERAPY 05/24/2018 TOMASA CARMONA MD Ot B96.20 UNSP ESCHERICHIA COLI THE CAUSE OF DI 05/24/2018 TOMASA CARMONA MD, Ot D50 .0 IRON DEFICIENCY ANEMIA SECONDARY TO BLOO 05/24/2018 TOMASA CARMONA MD, Ot E03 .9 HYPOTHYROIDISM, UNSPECIFIED 05/24/2018 TOMASA CARMONA MD Ot E11.65 TYPE 2 DIABETES MELLITUS WITH HYPERGLYCE 05/24/2018 TOMASA CARMONA MD, Ot E78 .5 HYPERLIPIDEMIA, UNSPECIFIED 05/24/2018 TOMASA CARMONA MD, Ot F41 .9 ANXIETY DISORDER, UNSPECIFIED 05/24/2018 TOMASA CARMONA MD Ot 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 05/24/2018 TOMASA CARMONA MD, Ot I25.10 ATHSCL HEART DISEASE OF [place] CORONARY 05/24/2018 TOMASA CARMONA MD, Ot I25 .2 OLD MYOCARDIAL INFARCTION 05/24/2018 TOMASA CARMONA MD, Ot I48 .0 PAROXYSMAL ATRIAL FIBRILLATION 05/24/2018 TOMASA CARMONA MD, Ot I50 .9 HEART FAILURE, UNSPECIFIED 05/24/2018 TOMASA CARMONA MD, Ot J90 PLEURAL EFFUSION, NOT ELSEWHERE CLASSIFI 05/24/2018 TOMASA CARMONA MD, Ot K29.50 UNSPECIFIED CHRONIC GASTRITIS WITHOUT BL 05/24/2018 TOMASA CARMONA MD, Ot K31.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 05/24/2018 TOMASA CARMONA MD, Ot N18 .9 CHRONIC KIDNEY DISEASE, UNSPECIFIED 05/24/2018 TOMASA CARMONA MD, Ot N39 .0 URINARY TRACT INFECTION, SITE NOT SPECIF 05/24/2018 TOMASA CARMONA MD, Ot R10.13 EPIGASTRIC PAIN 05/24/2018 TOMASA CARMONA MD, Ot R78.81 BACTEREMIA 05/24/2018 TOMASA CARMONA MD, Ot Z87.8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 05/24/2018 TOMASA CARMONA MD, Ot Z95 .1 PRESENCE OF AORTOCORONARY BYPASS GRAFT 05/25/2018 TOMASA CARMONA MD, Ot B96.20 UNSP ESCHERICHIA COLI THE CAUSE OF DI 05/25/2018 TOMASA CARMONA MD, Ot D50 .0 IRON DEFICIENCY ANEMIA SECONDARY TO BLOO 05/25/2018 TOMASA CARMONA MD, Ot E03 .9 HYPOTHYROIDISM, UNSPECIFIED 05/25/2018 TOMASA CARMONA MD, Ot E11.65 TYPE 2 DIABETES MELLITUS WITH HYPERGLYCE 05/25/2018 TOMASA CARMONA MD, Ot E78 .5 HYPERLIPIDEMIA, UNSPECIFIED 05/25/2018 TOMASA CARMONA MD, Ot F41 .9 ANXIETY DISORDER, UNSPECIFIED 05/25/2018 TOMASA CARMONA MD, Ot 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 05/25/2018 TOMASA CARMONA MD, Ot I25.10 ATHSCL HEART DISEASE OF [place] CORONARY 05/25/2018 TOMASA CARMONA MD, Ot I25 .2 OLD MYOCARDIAL INFARCTION 05/25/2018 TOMASA CARMONA MD, Ot I48 .0 PAROXYSMAL ATRIAL FIBRILLATION 05/25/2018 TOMASA CARMONA MD, Ot I50 .9 HEART FAILURE, UNSPECIFIED 05/25/2018 TOMASA CARMONA MD, Ot J90 PLEURAL EFFUSION, NOT ELSEWHERE CLASSIFI 05/25/2018 TOMASA CARMONA MD, Ot K29.50 UNSPECIFIED CHRONIC GASTRITIS WITHOUT BL 05/25/2018 TOMASA CARMONA MD, Ot K31.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 05/25/2018 TOMASA CARMONA MD, Ot N18 .9 CHRONIC KIDNEY DISEASE, UNSPECIFIED 05/25/2018 TOMASA CARMONA MD, Ot N39 .0 URINARY TRACT INFECTION, SITE NOT SPECIF 05/25/2018 TOMASA CARMONA MD, Ot R10.13 EPIGASTRIC PAIN 05/25/2018 TOMASA CARMONA MD, Ot R78.81 BACTEREMIA 05/25/2018 TOMASA CARMONA MD, Ot Z87.8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 05/25/2018 TOMASA CARMONA MD, Ot Z95 .1 PRESENCE OF AORTOCORONARY BYPASS GRAFT 05/25/2018 TOMASA CARMONA MD, Ot B96.20 UNSP ESCHERICHIA COLI THE CAUSE OF DI 05/25/2018 TOMASA CARMONA MD, Ot D50 .0 IRON DEFICIENCY ANEMIA SECONDARY TO BLOO 05/25/2018 TOMASA CARMONA MD, Ot E03 .9 HYPOTHYROIDISM, UNSPECIFIED 05/25/2018 TOMASA CARMONA MD, Ot E11.65 TYPE 2 DIABETES MELLITUS WITH HYPERGLYCE 05/25/2018 TOMASA CARMONA MD, Ot E78 .5 HYPERLIPIDEMIA, UNSPECIFIED 05/25/2018 TOMASA CARMONA MD, Ot F41 .9 ANXIETY DISORDER, UNSPECIFIED 05/25/2018 TOMASA CARMONA MD, Ot 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 05/25/2018 TOMASA CARMONA MD, Ot I25.10 ATHSCL HEART DISEASE OF [place] CORONARY 05/25/2018 TOMASA CARMONA MD, Ot I25 .2 OLD MYOCARDIAL INFARCTION 05/25/2018 TOMASA CARMONA MD, Ot I27.20 PULMONARY HYPERTENSION, UNSPECIFIED 05/25/2018 TOMAAS CARMONA MD, Ot I34 .0 NONRHEUMATIC MITRAL (VALVE) INSUFFICIENC 05/25/2018 TOMASA CARMONA MD, Ot I48 .0 PAROXYSMAL ATRIAL FIBRILLATION 05/25/2018 TOMASA CARMONA MD, Ot I50 .9 HEART FAILURE, UNSPECIFIED 05/25/2018 TOMASA CARMONA MD, Ot J90 PLEURAL EFFUSION, NOT ELSEWHERE CLASSIFI 05/25/2018 TOMASA CARMONA MD, Ot K29.50 UNSPECIFIED CHRONIC GASTRITIS WITHOUT BL 05/25/2018 TOMASA CARMONA MD, Ot K31.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 05/25/2018 TOMASA CARMONA MD, Ot N18 .4 CHRONIC KIDNEY DISEASE, STAGE 4 (SEVERE) 05/25/2018 TOMASA CARMONA MD, Ot N18 .9 CHRONIC KIDNEY DISEASE, UNSPECIFIED 05/25/2018 TOMASA CARMONA MD, Ot N39 .0 URINARY TRACT INFECTION, SITE NOT SPECIF 05/25/2018 TOMASA CARMONA MD, Ot R10.13 EPIGASTRIC PAIN 05/25/2018 TOMASA CARMONA MD, Ot R78.81 BACTEREMIA 05/25/2018 TOMASA CARMONA MD, Ot T80.218A OTHER INFECTION DUE TO CENTRAL VENOUS CA 05/25/2018 TOMASA CARMONA MD, Ot Z87.8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 05/25/2018 TOMASA CARMONA MD, Ot Z95 .1 PRESENCE OF AORTOCORONARY BYPASS GRAFT 05/27/2018 TOMASA CARMONA MD, Ot B96.20 UNSP ESCHERICHIA COLI THE CAUSE OF DI 05/27/2018 TOMASA CARMONA MD, Ot D50 .0 IRON DEFICIENCY ANEMIA SECONDARY TO BLOO 05/27/2018 TOMASA CARMONA MD, Ot E03 .9 HYPOTHYROIDISM, UNSPECIFIED 05/27/2018 TOMASA CARMONA MD, Ot E11.65 TYPE 2 DIABETES MELLITUS WITH HYPERGLYCE 05/27/2018 TOMASA CARMONA MD, Ot E78 .5 HYPERLIPIDEMIA, UNSPECIFIED 05/27/2018 TOMASA CARMONA MD, Ot F41 .9 ANXIETY DISORDER, UNSPECIFIED 05/27/2018 TOMASA CARMONA MD, Ot 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 05/27/2018 KRISTINE MD, TOMASA N Ot I25.10 ATHSCL HEART DISEASE OF [place] CORONARY 05/27/2018 TOMASA CARMONA MD, Ot I25 .2 OLD MYOCARDIAL INFARCTION 05/27/2018 TOMASA CARMONA MD, Ot I27.20 PULMONARY HYPERTENSION, UNSPECIFIED 05/27/2018 TOMASA CARMONA MD, Ot I34 .0 NONRHEUMATIC MITRAL (VALVE) INSUFFICIENC 05/27/2018 TOMASA CARMONA MD, Ot I48 .0 PAROXYSMAL ATRIAL FIBRILLATION 05/27/2018 TOMASA CARMONA MD Ot I50 .9 HEART FAILURE, UNSPECIFIED 05/27/2018 TOMASA CARMONA MD, Ot J90 PLEURAL EFFUSION, NOT ELSEWHERE CLASSIFI 05/27/2018 TOMASA CARMONA MD Ot K29.50 UNSPECIFIED CHRONIC GASTRITIS WITHOUT BL 05/27/2018 TOMASA CARMONA MD, Ot K31.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 05/27/2018 TOMASA CARMONA MD, Ot N18 .4 CHRONIC KIDNEY DISEASE, STAGE 4 (SEVERE) 05/27/2018 TOMASA CARMONA MD, Ot N39 .0 URINARY TRACT INFECTION, SITE NOT SPECIF 05/27/2018 TOMASA CARMONA MD Ot R10.13 EPIGASTRIC PAIN 05/27/2018 TOMASA CARMONA MD Ot R78.81 BACTEREMIA 05/27/2018 TOMASA CARMONA MD Ot T80.218A OTHER INFECTION DUE TO CENTRAL VENOUS CA 05/27/2018 TOMASA CARMONA MD, Ot Z87.8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 05/27/2018 TOMASA CARMONA MD Ot Z95 .1 PRESENCE OF AORTOCORONARY BYPASS GRAFT 05/28/2018 Wei ALCARAZ MD Ot I47 .1 SUPRAVENTRICULAR TACHYCARDIA 05/28/2018 Wei ALCARAZ MD Ot I48.91 UNSPECIFIED ATRIAL FIBRILLATION 05/28/2018 MODESTO BALDERRAMA MD Ot D64 .9 ANEMIA, UNSPECIFIED 05/28/2018 MODESTO BALDERRAMA MD Ot E11 .9 TYPE 2 DIABETES MELLITUS WITHOUT COMPLIC 05/28/2018 MODESTO BALDERRAMA MD Ot E66 .9 OBESITY, UNSPECIFIED 05/28/2018 MODESTO BALDERRAMA MD Ot E78.00 PURE HYPERCHOLESTEROLEMIA, UNSPECIFIED 05/28/2018 MODESTO BALDERRAMA MD, Ot G47.30 SLEEP APNEA, UNSPECIFIED 05/28/2018 MODESTO BALDERRAMA MD, Ot I10 ESSENTIAL (PRIMARY) HYPERTENSION 05/28/2018 MODESTO BALDERRAMA MD, Ot I25.10 ATHSCL HEART DISEASE OF [place] CORONARY 05/28/2018 MODESTO BALDERRAMA MD, Ot I25 .2 OLD MYOCARDIAL INFARCTION 05/28/2018 MODESTO BALDERRAMA MD, Ot I48.91 UNSPECIFIED ATRIAL FIBRILLATION 05/28/2018 MODESTO BALDERRAMA MD, Ot J91 .8 PLEURAL EFFUSION IN OTHER CONDITIONS CLA 05/28/2018 MODESTO BALDERRAMA MD, Ot K21 .9 GASTRO-ESOPHAGEAL REFLUX DISEASE WITHOUT 05/28/2018 MODESTO BALDERRAMA MD Ot R06.02 SHORTNESS OF BREATH 05/28/2018 MODESTO BALDERRAMA MD, Ot Z68.42 BODY MASS INDEX (BMI) 45.0-49.9, ADULT 05/28/2018 MODESTO BALDERRAMA MD, Ot Z79 .4 POOL LIFEGUARD (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 OF INSULIN 05/28/2018 MODESTO BALDERRAMA MD, Ot Z79.82 JAIL (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 OF ASPIRIN 05/28/2018 MODESTO BALDERRAMA MD, Ot Z80 .0 FAMILY HISTORY OF MALIGNANT NEOPLASM OF 05/28/2018 MODESTO BALDERRAMA MD, Ot Z82.49 FAMILY HX OF ISCHEM HEART DIS AND OTH DI 05/28/2018 MODESTO BALDERRAMA MD Ot Z86.010 PERSONAL HISTORY OF COLONIC POLYPS 05/28/2018 MODESTO BALDERRAMA MD, Ot Z87.19 PERSONAL HISTORY OF OTHER DISEASES OF TH 05/28/2018 MODESTO BALDERRAMA MD, Ot Z87.448 PERSONAL HISTORY OF OTHER DISEASES OF UR 05/28/2018 MODESTO BALDERRAMA MD, Ot Z87.8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 05/28/2018 MODESTO BALDERRAMA MD, Ot Z88 .8 ALLERGY STATUS TO OT DRUG/MEDS/BIOL SUB 05/28/2018 MODESTO BALDERRAMA MD, Ot Z90.89 ACQUIRED ABSENCE OF OTHER ORGANS 05/28/2018 MODESTO BALDERRAMA MD Ot Z95 .5 PRESENCE OF CORONARY ANGIOPLASTY IMPLANT 05/28/2018 MODESTO BALDERRAMA MD Ot Z95 .9 PRESENCE OF CARDIAC AND VASCULAR IMPLANT 05/28/2018 TACOS KHOURY, MODESTO Barrett Ot Z98.51 TUBAL LIGATION STATUS 05/30/2018 MACIEL WELCH APRN Ot M79.89 OTHER SPECIFIED SOFT TISSUE DISORDERS 06/01/2018 JAMES TORRES MD, Ot A41.9 SEPSIS, UNSPECIFIED ORGANISM 06/01/2018 JAMES TORRES MD Ot D50.0 IRON DEFICIENCY ANEMIA SECONDARY TO BLOO 06/01/2018 JAMES TORRES MD Ot E03.9 HYPOTHYROIDISM, UNSPECIFIED 06/01/2018 JAMES TORRES MD, Ot E11.9 TYPE 2 DIABETES MELLITUS WITHOUT COMPLIC 06/01/2018 JAMES TORRES MD, Ot E66.0 1 MORBID (SEVERE) OBESITY DUE TO EXCESS CA 06/01/2018 JAMES TORRES MD, Ot E78.0 0 PURE HYPERCHOLESTEROLEMIA, UNSPECIFIED 06/01/2018 JAMES TORRES MD, Ot F41.9 ANXIETY DISORDER, UNSPECIFIED 06/01/2018 JAMES TORRES MD, Ot 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 06/01/2018 JAMES TORRES MD, Ot I25.1 0 ATHSCL HEART DISEASE OF [place] CORONARY 06/01/2018 JAMES TORRES MD, Ot I25.2 OLD MYOCARDIAL INFARCTION 06/01/2018 JAMES TORRES MD, Ot I50.3 3 ACUTE ON CHRONIC DIASTOLIC (CONGESTIVE) 06/01/2018 JAMES TORRES MD, Ot J90 PLEURAL EFFUSION, NOT ELSEWHERE CLASSIFI 06/01/2018 JAMES TORRES MD, Ot J96.0 1 ACUTE RESPIRATORY FAILURE WITH HYPOXIA 06/01/2018 JAMES TORRES MD, Ot J98.1 1 ATELECTASIS 06/01/2018 JAMES TORRES MD, Ot K21.9 GASTRO-ESOPHAGEAL REFLUX DISEASE WITHOUT 06/01/2018 JAMES TORRES MD, Ot K31.8 11 ANGIODYSPLASIA OF STOMACH AND DUODENUM W 06/01/2018 JAMES TORRES MD, Ot K75.8 1 NONALCOHOLIC STEATOHEPATITIS (TANG) 06/01/2018 JAMES TORRES MD, Ot K76.6 PORTAL HYPERTENSION 06/01/2018 JAMES TORRES MD, Ot M54.5 LOW BACK PAIN 06/01/2018 JAMES TORRES MD, Ot N17.9 ACUTE KIDNEY FAILURE, UNSPECIFIED 06/01/2018 JAMES TORRES MD, Ot N18.9 CHRONIC KIDNEY DISEASE, UNSPECIFIED 06/01/2018 JAMES TORRES MD, Ot R18.8 OTHER ASCITES 06/01/2018 JAMES TORRES MD, Ot R41.0 DISORIENTATION, UNSPECIFIED 06/01/2018 JAMES TORRES MD, Ot W19.XXXA UNSPECIFIED FALL, INITIAL ENCOUNTER 06/01/2018 JAMES TORRES MD, Ot Y92.[address] IN [facility] NON-INSTITUTIONAL RESI 06/01/2018 JAMES TORRES MD, Ot Z68.4 3 BODY MASS INDEX (BMI) 50-59.9, ADULT 06/01/2018 JAMES TORRES MD, Ot Z79.4 POOL LIFEGUARD (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 OF INSULIN 06/01/2018 JAMES TORRES MD, Ot Z87.8 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 06/01/2018 JAMES TORRES MD, Ot Z95.1 PRESENCE OF AORTOCORONARY BYPASS GRAFT 06/01/2018 JAMES TORRES MD, Ot Z95.5 PRESENCE OF CORONARY ANGIOPLASTY IMPLANT 06/01/2018 JAMES TORRES MD, Ot A41.9 SEPSIS, UNSPECIFIED ORGANISM 06/01/2018 JAMES TORRES MD, Ot B96.2 0 UNSP ESCHERICHIA COLI THE CAUSE OF DI 06/01/2018 JAMES TORRES MD, Ot D50.0 IRON DEFICIENCY ANEMIA SECONDARY TO BLOO 06/01/2018 JAMES TORRES MD, Ot E03.9 HYPOTHYROIDISM, UNSPECIFIED 06/01/2018 JAMES TORRES MD, Ot E11.9 TYPE 2 DIABETES MELLITUS WITHOUT COMPLIC 06/01/2018 JAMES TORRES MD, Ot E66.0 1 MORBID (SEVERE) OBESITY DUE TO EXCESS CA 06/01/2018 JAMES TORRES MD, Ot E78.0 0 PURE HYPERCHOLESTEROLEMIA, UNSPECIFIED 06/01/2018 JAMES TORRES MD, Ot F41.9 ANXIETY DISORDER, UNSPECIFIED 06/01/2018 JAMES TORRES MD, Ot 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 06/01/2018 JAMES TORRES MD, Ot I25.1 0 ATHSCL HEART DISEASE OF [place] CORONARY 06/01/2018 JAMES TORRES MD Ot I27.2 0 PULMONARY HYPERTENSION, UNSPECIFIED 06/01/2018 JAMES TORRES MD Ot I34.0 NONRHEUMATIC MITRAL (VALVE) INSUFFICIENC 06/01/2018 JAMES TORRES MD Ot I48.0 PAROXYSMAL ATRIAL FIBRILLATION 06/01/2018 JAMES TORRES MD Ot I50.3 3 ACUTE ON CHRONIC DIASTOLIC (CONGESTIVE) 06/01/2018 JAMES TORRES MD Ot J90 PLEURAL EFFUSION, NOT ELSEWHERE CLASSIFI 06/01/2018 JAMES TORRES MD, Ot J96.0 1 ACUTE RESPIRATORY FAILURE WITH HYPOXIA 06/01/2018 JAMES TORRES MD, Ot J98.1 1 ATELECTASIS 06/01/2018 JAMES TORRES MD Ot K21.9 GASTRO-ESOPHAGEAL REFLUX DISEASE WITHOUT 06/01/2018 JAMES TORRES MD Ot K31.8 11 ANGIODYSPLASIA OF STOMACH AND DUODENUM W 06/01/2018 JAMES TORRES MD Ot K75.8 1 NONALCOHOLIC STEATOHEPATITIS (TANG) 06/01/2018 JAMES TORRES MD, Ot K76.6 PORTAL HYPERTENSION 06/01/2018 JAMES TORRES MD Ot N17.9 ACUTE KIDNEY FAILURE, UNSPECIFIED 06/01/2018 JAMES TORRES MD, Ot N18.9 CHRONIC KIDNEY DISEASE, UNSPECIFIED 06/01/2018 JAMES TORRES MD Ot N39.0 URINARY TRACT INFECTION, SITE NOT SPECIF 06/01/2018 JAMES TORRES MD Ot R18.8 OTHER ASCITES 06/01/2018 JAMES TORRES MD Ot R41.0 DISORIENTATION, UNSPECIFIED 06/01/2018 JAMES TORRES MD Ot W19.XXXA UNSPECIFIED FALL, INITIAL ENCOUNTER 06/01/2018 JAMES TORRES MD Ot Y92.[address] [facility] NON-INSTITUTIONAL RESI 06/01/2018 JAMES TORRES MD, Ot Z68.4 3 BODY MASS INDEX (BMI) 50-59.9, ADULT 06/01/2018 JAMES TORRES MD Ot Z95.1 PRESENCE OF AORTOCORONARY BYPASS GRAFT 06/04/2018 MODESTO BALDERRAMA MD Ot D64 .9 ANEMIA, UNSPECIFIED 06/04/2018 MODESTO BALDERRAMA MD Ot E11 .9 TYPE 2 DIABETES MELLITUS WITHOUT COMPLIC 06/04/2018 MODESTO BALDERRAMA MD Ot E66 .9 OBESITY, UNSPECIFIED 06/04/2018 MODESTO BALDERRAMA MD Ot E78.00 PURE HYPERCHOLESTEROLEMIA, UNSPECIFIED 06/04/2018 MODESTO BALDERRAMA MD Ot G47.30 SLEEP APNEA, UNSPECIFIED 06/04/2018 MODESTO BALDERRAMA MD Ot I10 ESSENTIAL (PRIMARY) HYPERTENSION 06/04/2018 MODESTO BALDERRAMA MD Ot I25.10 ATHSCL HEART DISEASE OF [place] CORONARY 06/04/2018 MODESTO BALDERRAMA MD, Ot I25 .2 OLD MYOCARDIAL INFARCTION 06/04/2018 MODESTO BALDERRAMA MD Ot I48.91 UNSPECIFIED ATRIAL FIBRILLATION 06/04/2018 MODESTO BALDERRAMA MD Ot J91 .8 PLEURAL EFFUSION IN OTHER CONDITIONS CLA 06/04/2018 MODESTO BALDERRAMA MD Ot K21 .9 GASTRO-ESOPHAGEAL REFLUX DISEASE WITHOUT 06/04/2018 MODESTO BALDERRAMA MD Ot R06.02 SHORTNESS OF BREATH 06/04/2018 MODESTO BALDERRAMA MD Ot Z68.42 BODY MASS INDEX (BMI) 45.0-49.9, ADULT 06/04/2018 MODESTO BALDERRAMA MD Ot Z79 .4 POOL LIFEGUARD (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 OF INSULIN 06/04/2018 MODESTO BALDERRAMA MD Ot Z79.82 POOL LIFEGUARD (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 OF ASPIRIN 06/04/2018 MODESTO BALDERRAMA MD Ot Z80 .0 FAMILY HISTORY OF MALIGNANT NEOPLASM OF 06/04/2018 MODESTO BALDERRAMA MD Ot Z82.49 FAMILY HX OF ISCHEM HEART DIS AND OTH DI 06/04/2018 MODESTO BALDERRAMA MD Ot Z86.010 PERSONAL HISTORY OF COLONIC POLYPS 06/04/2018 MODESTO BALDERRAMA MD Ot Z87.19 PERSONAL HISTORY OF OTHER DISEASES OF TH 06/04/2018 MODESTO BALDERRAMA MD Ot Z87.448 PERSONAL HISTORY OF OTHER DISEASES OF UR 06/04/2018 MODESTO BALDERRAMA MD Ot Z87.8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 06/04/2018 MODESTO BALDERRAMA MD Ot Z88 .8 ALLERGY STATUS TO OT DRUG/MEDS/BIOL SUB 06/04/2018 MODESTO BALDERRAMA MD Ot Z90.89 ACQUIRED ABSENCE OF OTHER ORGANS 06/04/2018 MODESTO BALDERRAMA MD Ot Z95 .5 PRESENCE OF CORONARY ANGIOPLASTY IMPLANT 06/04/2018 MODESTO BALDERRAMA MD, Ot Z95 .9 PRESENCE OF CARDIAC AND VASCULAR IMPLANT 06/04/2018 MODESTO BALDERRAMA MD, Ot Z98.51 TUBAL LIGATION STATUS 06/14/2018 BRANDEN HAIDER MD Ot D50.9 IRON DEFICIENCY ANEMIA, UNSPECIFIED 06/14/2018 BRANDEN HAIDER MD Ot E03.9 HYPOTHYROIDISM, UNSPECIFIED 06/14/2018 BRANDEN HAIDER MD Ot 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 06/14/2018 BRANDEN HAIDER MD Ot I12.9 HYPERTENSIVE CHRONIC KIDNEY DISEASE W ST 06/14/2018 BRANDEN HAIDER MD Ot I25.10 ATHSCL HEART DISEASE OF [place] CORONARY 06/14/2018 BRANDEN HAIDER MD Ot I48.91 UNSPECIFIED ATRIAL FIBRILLATION 06/14/2018 BRANDEN HAIDER MD Ot N18.3 CHRONIC KIDNEY DISEASE, STAGE 3 (MODERAT 06/14/2018 BRANDEN HAIDER MD Ot Z79.899 OTHER JAIL (CURRENT) DRUG THERAPY 06/18/2018 NWAGWU, ISIDORE O SALES AGENT TRADING STAMPS Ot M79.89 OTHER SPECIFIED SOFT TISSUE DISORDERS 06/18/2018 NWAGWU, ISIDORE O SALES AGENT TRADING STAMPS Ot M79.89 OTHER SPECIFIED SOFT TISSUE DISORDERS 06/18/2018 KIERAN KHOURY, Wei BRANDON Ot I47 .1 SUPRAVENTRICULAR TACHYCARDIA 06/18/2018 KIERAN KHOURY, Wei BRANDON Ot I48.91 UNSPECIFIED ATRIAL FIBRILLATION 06/18/2018 SHIREEN AGARWAL Ot D50.9 IRON DEFICIENCY ANEMIA, UNSPECIFIED 06/18/2018 SHIREEN AGARWAL Ot E03.9 HYPOTHYROIDISM, UNSPECIFIED 06/18/2018 SHIREEN AGARWAL Ot 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 06/18/2018 SHIREEN AGARWAL Ot I12.9 HYPERTENSIVE CHRONIC KIDNEY DISEASE W ST 06/18/2018 SHIREEN AGARWAL Ot I25.10 ATHSCL HEART DISEASE OF [place] CORONARY 06/18/2018 SHIREEN AGARWAL Ot I48.91 UNSPECIFIED ATRIAL FIBRILLATION 06/18/2018 SHIREEN AGARWAL Ot N18.3 CHRONIC KIDNEY DISEASE, STAGE 3 (MODERAT 06/18/2018 SHIREEN AGARWAL Solange Ot Z79.899 OTHER POOL LIFEGUARD (CURRENT) DRUG THERAPY 06/20/2018 MELIZA KHOURY, BRANDEN Ot D50.9 IRON DEFICIENCY ANEMIA, UNSPECIFIED 06/20/2018 BRANDEN HAIDER MD Ot E03.9 HYPOTHYROIDISM, UNSPECIFIED 06/20/2018 MELIZA KHOURY, BRANDEN Ot 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 06/20/2018 BRANDEN HAIDER MD Ot I12.9 HYPERTENSIVE CHRONIC KIDNEY DISEASE W ST 06/20/2018 BRANDEN HAIDER MD Ot I25.10 ATHSCL HEART DISEASE OF [place] CORONARY 06/20/2018 BRANDEN HAIDER MD Ot I48.91 UNSPECIFIED ATRIAL FIBRILLATION 06/20/2018 BRANDEN HAIDER MD Ot N18.3 CHRONIC KIDNEY DISEASE, STAGE 3 (MODERAT 06/20/2018 MELIZA KHOURY, BRANDEN Ot Z79.899 OTHER JAIL (CURRENT) DRUG THERAPY 07/01/2018 RADHA DO MICHELLE Ot D64.9 ANEMIA, UNSPECIFIED 07/01/2018 RADHA DO MICHELLE Ot D69.6 THROMBOCYTOPENIA, UNSPECIFIED 07/01/2018 RADHA DO MICHELLE Ot E03.9 HYPOTHYROIDISM, UNSPECIFIED 07/01/2018 RADHA DO MICHELLE Ot E11.65 TYPE 2 DIABETES MELLITUS WITH HYPERGLYCE 07/01/2018 RADHA DO MICHELLE Ot E66.01 MORBID (SEVERE) OBESITY DUE TO EXCESS CA 07/01/2018 RADHA DO MICHELLE Ot E78.5 HYPERLIPIDEMIA, UNSPECIFIED 07/01/2018 RADHA DO MICHELLE Ot F41.9 ANXIETY DISORDER, UNSPECIFIED 07/01/2018 RADHA DO MICHELLE Ot G72.81 CRITICAL ILLNESS MYOPATHY 07/01/2018 RADHA DO MICHELLE Ot 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 07/01/2018 RADHA DO MICHELLE Ot I25.10 ATHSCL HEART DISEASE OF [place] CORONARY 07/01/2018 RADHA DO MICHELLE Ot I25.2 OLD MYOCARDIAL INFARCTION 07/01/2018 RADHA WOOD MICHELLE Ot I48.0 PAROXYSMAL ATRIAL FIBRILLATION 07/01/2018 RADHA WOOD MICHELLE Ot I50.32 CHRONIC DIASTOLIC (CONGESTIVE) HEART KATY 07/01/2018 MICHELLE GARCIA DO Ot J44.9 CHRONIC OBSTRUCTIVE PULMONARY DISEASE, U 07/01/2018 MICHELLE GARCIA DO Ot K21.9 GASTRO-ESOPHAGEAL REFLUX DISEASE WITHOUT 07/01/2018 MICHELLE GARCIA DO Ot K22.70 ZELAYA'S ESOPHAGUS WITHOUT DYSPLASIA 07/01/2018 RADHA WOOD MICHELLE Ot K31.81 1 ANGIODYSPLASIA OF STOMACH AND DUODENUM W 07/01/2018 MICHELLE GARCIA DO Ot K74.60 UNSPECIFIED CIRRHOSIS OF LIVER 07/01/2018 MICHELLE GARCIA DO Ot L40.9 PSORIASIS, UNSPECIFIED 07/01/2018 RADHA WOOD MICHELLE Ot N18.9 CHRONIC KIDNEY DISEASE, UNSPECIFIED 07/01/2018 MICHELLE GARCIA DO Ot R09.02 HYPOXEMIA 07/01/2018 MICHELLE GARCIA DO Ot Z68.42 BODY MASS INDEX (BMI) 45.0-49.9, ADULT 07/01/2018 MICHELLE GARCIA DO Ot Z79.4 POOL LIFEGUARD (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 OF INSULIN 07/01/2018 MICHELLE AGRCIA DO Ot Z87.89 1 PERSONAL HISTORY OF NICOTINE DEPENDENCE 07/01/2018 MICHELLE GARCIA DO Ot Z95.1 PRESENCE OF AORTOCORONARY BYPASS GRAFT 07/01/2018 MICHELLE GARCIA DO Ot Z95.5 PRESENCE OF CORONARY ANGIOPLASTY IMPLANT 07/01/2018 EMILIANO GARCIA DOI Ot Z99.81 DEPENDENCE ON SUPPLEMENTAL OXYGEN 07/01/2018 EMILIANO GARCIA DOI Ot D50.0 IRON DEFICIENCY ANEMIA SECONDARY TO BLOO 07/01/2018 EMILIANO GARCIA DOI Ot D64.9 ANEMIA, UNSPECIFIED 07/01/2018 EMILIANO GARCIA DOI Ot D69.6 THROMBOCYTOPENIA, UNSPECIFIED 07/01/2018 MICHELLE GARCIA DO Ot D70.9 NEUTROPENIA, UNSPECIFIED 07/01/2018 MICHELLE GARCIA DO Ot E03.9 HYPOTHYROIDISM, UNSPECIFIED 07/01/2018 RADHA WOOD MICHELLE Ot E11.65 TYPE 2 DIABETES MELLITUS WITH HYPERGLYCE 07/01/2018 RADHA WOOD MICHELLE Ot E53.8 DEFICIENCY OF OTHER SPECIFIED B GROUP 07/01/2018 RADHA WOOD MICHELLE Ot E66.01 MORBID (SEVERE) OBESITY DUE TO EXCESS CA 07/01/2018 EMILIANO GARCIA DOI Ot E78.5 HYPERLIPIDEMIA, UNSPECIFIED 07/01/2018 MICHELLE GARCIA DO Ot E83.42 HYPOMAGNESEMIA 07/01/2018 MICHELLE GARCIA DO Ot F41.9 ANXIETY DISORDER, UNSPECIFIED 07/01/2018 MICHELLE GARCIA DO Ot G72.81 CRITICAL ILLNESS MYOPATHY 07/01/2018 MICHELLE GARCIA DO Ot 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 07/01/2018 MICHELLE GARCIA DO Ot I25.10 ATHSCL HEART DISEASE OF [place] CORONARY 07/01/2018 MICHELLE GARCIA DO Ot I25.11 9 ATHSCL HEART DISEASE OF [place] COR ART W 07/01/2018 MICHELLE GARCIA DO Ot I25.2 OLD MYOCARDIAL INFARCTION 07/01/2018 MICHELLE GARCIA DO Ot I31.3 PERICARDIAL EFFUSION (NONINFLAMMATORY) 07/01/2018 MICHELLE GARCIA DO Ot I48.0 PAROXYSMAL ATRIAL FIBRILLATION 07/01/2018 MICHELLE GARCIA DO Ot I50.32 CHRONIC DIASTOLIC (CONGESTIVE) HEART KATY 07/01/2018 MICHELLE GARCIA DO Ot I87.2 VENOUS INSUFFICIENCY (CHRONIC) (PERIPHER 07/01/2018 MICHELLE GARCIA DO Ot J44.9 CHRONIC OBSTRUCTIVE PULMONARY DISEASE, U 07/01/2018 MICHELLE GARCIA DO Ot J90 PLEURAL EFFUSION, NOT ELSEWHERE CLASSIFI 07/01/2018 MICHELLE GARCIA DO Ot J96.11 CHRONIC RESPIRATORY FAILURE WITH HYPOXIA 07/01/2018 MICHELLE GARCIA DO Ot K21.9 GASTRO-ESOPHAGEAL REFLUX DISEASE WITHOUT 07/01/2018 MICHELLE GARCIA DO Ot K22.70 ZELAYA'S ESOPHAGUS WITHOUT DYSPLASIA 07/01/2018 MICHELLE GARCIA DO Ot K31.81 1 ANGIODYSPLASIA OF STOMACH AND DUODENUM W 07/01/2018 MICHELLE GARCIA DO Ot K74.60 UNSPECIFIED CIRRHOSIS OF LIVER 07/01/2018 MICHELLE GARCIA DO Ot K76.6 PORTAL HYPERTENSION 07/01/2018 MICHELLE GARCIA DO Ot L40.9 PSORIASIS, UNSPECIFIED 07/01/2018 MICHELLE GARCIA DO Ot N18.3 CHRONIC KIDNEY DISEASE, STAGE 3 (MODERAT 07/01/2018 MICHELLE GARCIA DO Ot N18.9 CHRONIC KIDNEY DISEASE, UNSPECIFIED 07/01/2018 GARCIA DO, MICHELLE Ot R09.02 HYPOXEMIA 07/01/2018 EMILIANO GARCIA DOI Ot S46.91 2A STRAIN UNSP MUSC/FASC/TEND AT SHLDR/UP A 07/01/2018 EMILIANO GARCIA DOI Ot Z68.42 BODY MASS INDEX (BMI) 45.0-49.9, ADULT 07/01/2018 RADHA WOOD MICHELLE Ot Z79.4 POOL LIFEGUARD (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 OF INSULIN 07/01/2018 EMILIANO GARCIA DOI Ot Z87.89 1 PERSONAL HISTORY OF NICOTINE DEPENDENCE 07/01/2018 RADHA WOOD MICHELLE Ot Z95.1 PRESENCE OF AORTOCORONARY BYPASS GRAFT 07/01/2018 RADHA WOODMICHELLE Ot Z95.5 PRESENCE OF CORONARY ANGIOPLASTY IMPLANT 07/01/2018 RADHA WOODMICHELLE Ot Z99.81 DEPENDENCE ON SUPPLEMENTAL OXYGEN 07/07/2018 SHIREEN AGARWAL Ot D64.9 ANEMIA, UNSPECIFIED 07/07/2018 SHIREEN AGARWAL Ot E11.9 TYPE 2 DIABETES MELLITUS WITHOUT COMPLIC 07/07/2018 SHIREEN AGARWAL Ot K74.60 UNSPECIFIED CIRRHOSIS OF LIVER 07/07/2018 SHIREEN AGARWAL Ot N18.9 CHRONIC KIDNEY DISEASE, UNSPECIFIED 07/09/2018 JAMES TORRES MD Ot D64.9 ANEMIA, UNSPECIFIED 07/09/2018 BRIAN KHOURY, JAMES Champion Ot E11.2 2 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 07/09/2018 RBIAN KHOURY, JAMES Champion Ot K74.6 0 UNSPECIFIED CIRRHOSIS OF LIVER 07/09/2018 JAMES TORRES MD Ot N18.9 CHRONIC KIDNEY DISEASE, UNSPECIFIED 07/13/2018 NWJOSE DE JESUSWU, MACIEL Freedman APRN Ot M79.89 OTHER SPECIFIED SOFT TISSUE DISORDERS 07/13/2018 SHIREEN AGARWAL Ot D50.9 IRON DEFICIENCY ANEMIA, UNSPECIFIED 07/13/2018 SHIREEN AGARWAL Ot E03.9 HYPOTHYROIDISM, UNSPECIFIED 07/13/2018 SHIREEN AGARWAL N Ot 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 07/13/2018 SHIREEN AGARWAL Ot I12.9 HYPERTENSIVE CHRONIC KIDNEY DISEASE W ST 07/13/2018 SHIREEN AGARWAL Ot I25.10 ATHSCL HEART DISEASE OF [place] CORONARY 07/13/2018 ANY, BOBAN N Ot I48.91 UNSPECIFIED ATRIAL FIBRILLATION 07/13/2018 ANY, BOBAN N Ot N18.3 CHRONIC KIDNEY DISEASE, STAGE 3 (MODERAT 07/13/2018 ANY, BOBAN N Ot Z79.899 OTHER POOL LIFEGUARD (CURRENT) DRUG THERAPY 07/13/2018 ANY, BOBAN N Ot D64.9 ANEMIA, UNSPECIFIED 07/13/2018 ANY, BOBAN N Ot E11.9 TYPE 2 DIABETES MELLITUS WITHOUT COMPLIC 07/13/2018 ANY, BOBAN N Ot K74.60 UNSPECIFIED CIRRHOSIS OF LIVER 07/13/2018 ANY, BOBAN N Ot N18.9 CHRONIC KIDNEY DISEASE, UNSPECIFIED 07/13/2018 JAMES TORRES MD R Ot D64.9 ANEMIA, UNSPECIFIED 07/13/2018 BRIAN KHOURY, JAMES R Ot E11.2 2 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 07/13/2018 JAMES TORRES MD R Ot K74.6 0 UNSPECIFIED CIRRHOSIS OF LIVER 07/13/2018 JAMES TORRES MD R Ot N18.9 CHRONIC KIDNEY DISEASE, UNSPECIFIED 07/15/2018 ANY, BOBAN N Ot D50.9 IRON DEFICIENCY ANEMIA, UNSPECIFIED 07/15/2018 ANY, BOBAN N Ot E03.9 HYPOTHYROIDISM, UNSPECIFIED 07/15/2018 ANY, BOBAN N Ot 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 07/15/2018 ANY, BOBAN N Ot I12.9 HYPERTENSIVE CHRONIC KIDNEY DISEASE W ST 07/15/2018 ANY, BOBAN N Ot I25.10 ATHSCL HEART DISEASE OF [place] CORONARY 07/15/2018 ANY, BOBAN N Ot I48.91 UNSPECIFIED ATRIAL FIBRILLATION 07/15/2018 ANY, BOBAN N Ot N18.3 CHRONIC KIDNEY DISEASE, STAGE 3 (MODERAT 07/15/2018 ANY, BOBAN N Ot Z79.899 OTHER POOL LIFEGUARD (CURRENT) DRUG THERAPY 07/28/2018 JAMES TORRES MD R Ot D64.9 ANEMIA, UNSPECIFIED 07/28/2018 JAMES TORRES MD R Ot E11.2 2 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 07/28/2018 BRIAN KHOURY, JAMES R Ot K74.6 0 UNSPECIFIED CIRRHOSIS OF LIVER 07/28/2018 JAMES TORRES MD Ot N18.9 CHRONIC KIDNEY DISEASE, UNSPECIFIED 08/06/2018 ANYSHIREEN N Ot D50.0 IRON DEFICIENCY ANEMIA SECONDARY TO BLOO 08/06/2018 ANYSHIREEN BALDWIN N Ot E03.9 HYPOTHYROIDISM, UNSPECIFIED 08/06/2018 ANY, SHIREEN N Ot 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 08/06/2018 ANYSHIREEN BALDWIN N Ot E53.8 DEFICIENCY OF OTHER SPECIFIED B GROUP 08/06/2018 ANYSHIREEN N Ot I12.9 HYPERTENSIVE CHRONIC KIDNEY DISEASE W ST 08/06/2018 ANYSHIREEN N Ot I25.10 ATHSCL HEART DISEASE OF [place] CORONARY 08/06/2018 ANYSHIREEN BALDWIN N Ot I48.91 UNSPECIFIED ATRIAL FIBRILLATION 08/06/2018 ANYSHIREEN BALDWIN N Ot K31.819 ANGIODYSPLASIA OF STOMACH AND DUODENUM W 08/06/2018 SHIREEN AGARWAL N Ot K74.60 UNSPECIFIED CIRRHOSIS OF LIVER 08/06/2018 SHIREEN AGARWAL Ot N18.3 CHRONIC KIDNEY DISEASE, STAGE 3 (MODERAT 08/06/2018 ANYSHIREEN BALDWIN N Ot Z79.899 OTHER POOL LIFEGUARD (CURRENT) DRUG THERAPY 08/17/2018 MACIEL WELCH APRN Ot M79.89 OTHER SPECIFIED SOFT TISSUE DISORDERS 08/17/2018 SHIREEN AGARWAL N Ot D50.0 IRON DEFICIENCY ANEMIA SECONDARY TO BLOO 08/17/2018 SHIREEN AGARWAL N Ot E03.9 HYPOTHYROIDISM, UNSPECIFIED 08/17/2018 ANYSHIREEN BALDWIN N Ot 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 08/17/2018 SHIREEN AGARWAL N Ot E53.8 DEFICIENCY OF OTHER SPECIFIED B GROUP 08/17/2018 ANYSHIREEN BALDWIN N Ot I12.9 HYPERTENSIVE CHRONIC KIDNEY DISEASE W ST 08/17/2018 SHIREEN AGARWAL N Ot I25.10 ATHSCL HEART DISEASE OF [place] CORONARY 08/17/2018 ANYSHIREEN BALDWIN N Ot I48.91 UNSPECIFIED ATRIAL FIBRILLATION 08/17/2018 ANYSHIREEN BALDWIN N Ot K31.819 ANGIODYSPLASIA OF STOMACH AND DUODENUM W 08/17/2018 SHIREEN AGARWAL N Ot K74.60 UNSPECIFIED CIRRHOSIS OF LIVER 08/17/2018 SHIREEN AGARWAL Ot N18.3 CHRONIC KIDNEY DISEASE, STAGE 3 (MODERAT 08/17/2018 SHIREEN AGARWAL Ot Z79.899 OTHER POOL LIFEGUARD (CURRENT) DRUG THERAPY 08/17/2018 SHIREEN AGARWAL Ot D64.9 ANEMIA, UNSPECIFIED 08/17/2018 SHIREEN AGARWAL N Ot E11.9 TYPE 2 DIABETES MELLITUS WITHOUT COMPLIC 08/17/2018 SHIREEN AGARWAL N Ot K74.60 UNSPECIFIED CIRRHOSIS OF LIVER 08/17/2018 SHIREEN AGARWAL N Ot N18.9 CHRONIC KIDNEY DISEASE, UNSPECIFIED 08/17/2018 BRIAN KHOURY, JAMES R Ot D64.9 ANEMIA, UNSPECIFIED 08/17/2018 BRIAN KHOURY, JAMES R Ot E11.2 2 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 08/17/2018 BRIAN KHOURY, JAMES R Ot K74.6 0 UNSPECIFIED CIRRHOSIS OF LIVER 08/17/2018 BRIAN KHOURY, JAMES R Ot N18.9 CHRONIC KIDNEY DISEASE, UNSPECIFIED 08/17/2018 BRIAN KHOURY, JAMES R Ot E03.9 HYPOTHYROIDISM, UNSPECIFIED 08/19/2018 BRIAN KHOURY, JAMES R Ot E03.9 HYPOTHYROIDISM, UNSPECIFIED 09/01/2018 KRUNAL KHUORY PHD, LULA Clement Ot I50.32 CHRONIC DIASTOLIC (CONGESTIVE) HEART KATY 09/08/2018 BRIAN KHOURY, JAMES R Ot E03.9 HYPOTHYROIDISM, UNSPECIFIED 09/22/2018 KRUNAL KHOURY PHD, LULA Clement Ot E03.9 HYPOTHYROIDISM, UNSPECIFIED 09/22/2018 KRUNAL KHOURY PHD, LULA Clement Ot I50.32 CHRONIC DIASTOLIC (CONGESTIVE) HEART KATY 09/22/2018 KRUNAL KHOURY PHD, LULA Clement Ot I50.32 CHRONIC DIASTOLIC (CONGESTIVE) HEART KATY 09/27/2018 KRUNAL KHOURY PHD, LULA Clement Ot I50.32 CHRONIC DIASTOLIC (CONGESTIVE) HEART KATY 09/27/2018 KATERYNA KHOURY, MAUREEN Rashid Ot D64.9 ANEMIA, UNSPECIFIED 09/27/2018 KATERYNA KHOURY, MAUREEN Rashid Ot 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 09/27/2018 KATERYNA KHOURY, MAUREEN Rashid Ot E78.00 PURE HYPERCHOLESTEROLEMIA, UNSPECIFIED 09/27/2018 MAUREEN AVENDAÑO MD, Ot E87.70 FLUID OVERLOAD, UNSPECIFIED 09/27/2018 MAUREEN AVENDAÑO MD, Ot F41.9 ANXIETY DISORDER, UNSPECIFIED 09/27/2018 MAUREEN AVENDAÑO MD, Ot G47.30 SLEEP APNEA, UNSPECIFIED 09/27/2018 MAUREEN AVENDAÑO MD, Ot 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 09/27/2018 MAUREEN AVENDAÑO MD, Ot I25.10 ATHSCL HEART DISEASE OF [place] CORONARY 09/27/2018 MAUREEN AVENDAÑO MD, Ot I25.2 OLD MYOCARDIAL INFARCTION 09/27/2018 MAUREEN AVENDAÑO MD, Ot I48.91 UNSPECIFIED ATRIAL FIBRILLATION 09/27/2018 MAUREEN AVENDAÑO MD, Ot I50.9 HEART FAILURE, UNSPECIFIED 09/27/2018 MAUREEN AVENDAÑO MD, Ot K21.9 GASTRO-ESOPHAGEAL REFLUX DISEASE WITHOUT 09/27/2018 MAUREEN AVENDAÑO MD, Ot N18.9 CHRONIC KIDNEY DISEASE, UNSPECIFIED 09/27/2018 MAUREEN AVENDAÑO MD, Ot R06.02 SHORTNESS OF BREATH 09/27/2018 MAUREEN AVENDAÑO MD, Ot Z79.4 JAIL (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 OF INSULIN 09/27/2018 MAUREEN AVENDAÑO MD, Ot Z80.0 FAMILY HISTORY OF MALIGNANT NEOPLASM OF 09/27/2018 MAUREEN AVENDAÑO MD, Ot Z82.49 FAMILY HX OF ISCHEM HEART DIS AND OTH DI 09/27/2018 MAUREEN AVENDAÑO MD, Ot Z86.010 PERSONAL HISTORY OF COLONIC POLYPS 09/27/2018 MAUREEN AVENDAÑO MD, Ot Z87.19 PERSONAL HISTORY OF OTHER DISEASES OF TH 09/27/2018 MAUREEN AVENDAÑO MD, Ot Z87.8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 09/27/2018 MAUREEN AVENDAÑO MD, Ot Z88.2 ALLERGY STATUS TO SULFONAMIDES STATUS 09/27/2018 MAUREEN AVENDAÑO MD, Ot Z88.8 ALLERGY STATUS TO OTH DRUG/MEDS/BIOL SUB 09/27/2018 MAUREEN AVENDAÑO MD, Ot Z90.89 ACQUIRED ABSENCE OF OTHER ORGANS 09/27/2018 MAUREEN AVENDAÑO MD Ot Z95.5 PRESENCE OF CORONARY ANGIOPLASTY IMPLANT 09/27/2018 MAUREEN AVENDAÑO MD, Ot Z98.51 TUBAL LIGATION STATUS 09/27/2018 MAUREEN AVENDAÑO MD, Ot Z98.890 OTHER SPECIFIED POSTPROCEDURAL STATES 09/27/2018 MAUREEN AVENDAÑO MD, Ot Z99.81 DEPENDENCE ON SUPPLEMENTAL OXYGEN 09/29/2018 MAUREEN AVENDAÑO MD, Ot D64.9 ANEMIA, UNSPECIFIED 09/29/2018 MAUREEN AVENDAÑO MD Ot 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 09/29/2018 MAUREEN AVENDAÑO MD, Ot E78.00 PURE HYPERCHOLESTEROLEMIA, UNSPECIFIED 09/29/2018 MAUREEN AVENDAÑO MD Ot E87.70 FLUID OVERLOAD, UNSPECIFIED 09/29/2018 MAUREEN AVENDAÑO MD Ot F41.9 ANXIETY DISORDER, UNSPECIFIED 09/29/2018 MAUREEN AVENDAÑO MD, Ot G47.30 SLEEP APNEA, UNSPECIFIED 09/29/2018 MAUREEN AVENDAÑO MD Ot 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 09/29/2018 MAUREEN AVENDAÑO MD, Ot I25.10 ATHSCL HEART DISEASE OF [place] CORONARY 09/29/2018 MAUREEN AVENDAÑO MD, Ot I25.2 OLD MYOCARDIAL INFARCTION 09/29/2018 MAUREEN AVENDAÑO MD Ot I48.91 UNSPECIFIED ATRIAL FIBRILLATION 09/29/2018 MAUREEN AVENDAÑO MD, Ot I50.9 HEART FAILURE, UNSPECIFIED 09/29/2018 MAUREEN AVENDAÑO MD, Ot K21.9 GASTRO-ESOPHAGEAL REFLUX DISEASE WITHOUT 09/29/2018 MAUREEN AVENDAÑO MD, Ot N18.9 CHRONIC KIDNEY DISEASE, UNSPECIFIED 09/29/2018 MAUREEN AVENDAÑO MD Ot R06.02 SHORTNESS OF BREATH 09/29/2018 MAUREEN AVENDAÑO MD Ot Z79.4 POOL LIFEGUARD (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 OF INSULIN 09/29/2018 MAUREEN AVENDAÑO MD, Ot Z80.0 FAMILY HISTORY OF MALIGNANT NEOPLASM OF 09/29/2018 MAUREEN AVENDAÑO MD, Ot Z82.49 FAMILY HX OF ISCHEM HEART DIS AND OTH DI 09/29/2018 MAUREEN AVENDAÑO MD, Ot Z86.010 PERSONAL HISTORY OF COLONIC POLYPS 09/29/2018 MAUREEN AVENDAÑO MD, Ot Z87.19 PERSONAL HISTORY OF OTHER DISEASES OF TH 09/29/2018 MAUREEN AVENDAÑO MD, Ot Z87.8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 09/29/2018 MAUREEN AVENDAÑO MD, Ot Z88.2 ALLERGY STATUS TO SULFONAMIDES STATUS 09/29/2018 MAUREEN AVENDAÑO MD, Ot Z88.8 ALLERGY STATUS TO OTH DRUG/MEDS/BIOL SUB 09/29/2018 MAUREEN AVENDAÑO MD, Ot Z90.89 ACQUIRED ABSENCE OF OTHER ORGANS 09/29/2018 MAUREEN AVENDAÑO MD, Ot Z95.5 PRESENCE OF CORONARY ANGIOPLASTY IMPLANT 09/29/2018 MAUREEN AVENDAÑO MD, Ot Z98.51 TUBAL LIGATION STATUS 09/29/2018 MAUREEN AVENDAÑO MD, Ot Z98.890 OTHER SPECIFIED POSTPROCEDURAL STATES 09/29/2018 MAUREEN AVENDAÑO MD, Ot Z99.81 DEPENDENCE ON SUPPLEMENTAL OXYGEN 10/07/2018 SHIREEN AGARWAL Ot D50.0 IRON DEFICIENCY ANEMIA SECONDARY TO BLOO 10/07/2018 SHIREEN AGARWAL Ot E03.9 HYPOTHYROIDISM, UNSPECIFIED 10/07/2018 SHIREEN AGARWAL Ot 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 10/07/2018 SHIREEN AGARWAL Ot E53.8 DEFICIENCY OF OTHER SPECIFIED B GROUP 10/07/2018 SHIREEN AGARWAL Ot I12.9 HYPERTENSIVE CHRONIC KIDNEY DISEASE W ST 10/07/2018 SHIREEN AGARWAL Ot I25.10 ATHSCL HEART DISEASE OF [place] CORONARY 10/07/2018 SHIREEN AGARWAL Ot I48.91 UNSPECIFIED ATRIAL FIBRILLATION 10/07/2018 SHIREEN AGARWAL Ot K31.819 ANGIODYSPLASIA OF STOMACH AND DUODENUM W 10/07/2018 ANYSHIREEN Ot K74.60 UNSPECIFIED CIRRHOSIS OF LIVER 10/07/2018 ANYSHIREEN Ot N18.3 CHRONIC KIDNEY DISEASE, STAGE 3 (MODERAT 10/07/2018 ANYSHIREEN Ot Z79.899 OTHER POOL LIFEGUARD (CURRENT) DRUG THERAPY 10/07/2018 NWRUPINDER, MACIEL Jasmina YOUNGN Ot M79.89 OTHER SPECIFIED SOFT TISSUE DISORDERS 10/07/2018 SHIREEN AGARWAL Ot D64.9 ANEMIA, UNSPECIFIED 10/07/2018 SHIREEN AGARWAL Ot E11.9 TYPE 2 DIABETES MELLITUS WITHOUT COMPLIC 10/07/2018 SHIREEN AGARWAL Ot K74.60 UNSPECIFIED CIRRHOSIS OF LIVER 10/07/2018 SHIREEN AGARWAL Ot N18.9 CHRONIC KIDNEY DISEASE, UNSPECIFIED 10/07/2018 BRIAN KHOURY, JAMES Champion Ot D64.9 ANEMIA, UNSPECIFIED 10/07/2018 BRIAN KHOURY, JAMES Champion Ot E11.2 2 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 10/07/2018 BRIAN KHOURY, JAMES Champion Ot K74.6 0 UNSPECIFIED CIRRHOSIS OF LIVER 10/07/2018 BRIAN KOHURY, JAMES Champion Ot N18.9 CHRONIC KIDNEY DISEASE, UNSPECIFIED 10/07/2018 BRIAN KHOURY, JAMES Champion Ot E03.9 HYPOTHYROIDISM, UNSPECIFIED 10/07/2018 KRUNAL KHOURY PHD, LULA Clement Ot I50.32 CHRONIC DIASTOLIC (CONGESTIVE) HEART KATY 10/07/2018 KRUNAL KHOURY PHD, LULA Clement Ot E03.9 HYPOTHYROIDISM, UNSPECIFIED 10/07/2018 KRUNAL KHOURY PHD, LULA Clement Ot I50.32 CHRONIC DIASTOLIC (CONGESTIVE) HEART KATY 10/07/2018 KRUNAL KHOURY PHD, LULA Clement Ot I50.32 CHRONIC DIASTOLIC (CONGESTIVE) HEART KATY 10/07/2018 SHIREEN AGARWAL Ot D50.0 IRON DEFICIENCY ANEMIA SECONDARY TO BLOO 10/07/2018 SHIREEN AGARWAL Ot E03.9 HYPOTHYROIDISM, UNSPECIFIED 10/07/2018 SHIREEN AGARWAL N Ot 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 10/07/2018 SHIREEN AGARWAL Ot E53.8 DEFICIENCY OF OTHER SPECIFIED B GROUP 10/07/2018 ANY SHIREEN N Ot I12.9 HYPERTENSIVE CHRONIC KIDNEY DISEASE W ST 10/07/2018 ANYSHIREEN N Ot I25.10 ATHSCL HEART DISEASE OF [place] CORONARY 10/07/2018 ANYSHIREEN N Ot I48.91 UNSPECIFIED ATRIAL FIBRILLATION 10/07/2018 ANY SHIREEN N Ot K31.819 ANGIODYSPLASIA OF STOMACH AND DUODENUM W 10/07/2018 ANYSHIREEN N Ot K74.60 UNSPECIFIED CIRRHOSIS OF LIVER 10/07/2018 ANYSHIREEN N Ot N18.3 CHRONIC KIDNEY DISEASE, STAGE 3 (MODERAT 10/07/2018 ANYSHIREEN BALDWIN N Ot Z79.899 OTHER JAIL (CURRENT) DRUG THERAPY 10/07/2018 SHIREEN AGARWAL N Ot D50.0 IRON DEFICIENCY ANEMIA SECONDARY TO BLOO 10/07/2018 SHIREEN AGARWAL N Ot E03.9 HYPOTHYROIDISM, UNSPECIFIED 10/07/2018 ANYSHIREEN N Ot 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 10/07/2018 ANYSHIREEN N Ot E53.8 DEFICIENCY OF OTHER SPECIFIED B GROUP 10/07/2018 ANYSHIREEN N Ot I12.9 HYPERTENSIVE CHRONIC KIDNEY DISEASE W ST 10/07/2018 SHIREEN AGARWAL N Ot I25.10 ATHSCL HEART DISEASE OF [place] CORONARY 10/07/2018 ANYSHIREEN N Ot I48.91 UNSPECIFIED ATRIAL FIBRILLATION 10/07/2018 ANYSHIREEN N Ot K31.819 ANGIODYSPLASIA OF STOMACH AND DUODENUM W 10/07/2018 SHIREEN AGARWAL N Ot K74.60 UNSPECIFIED CIRRHOSIS OF LIVER 10/07/2018 ANYSHIREEN N Ot N18.3 CHRONIC KIDNEY DISEASE, STAGE 3 (MODERAT 10/07/2018 ANYSHIREEN BALDWIN N Ot Z79.899 OTHER POOL LIFEGUARD (CURRENT) DRUG THERAPY 10/07/2018 ANYSHIREEN N Ot D50.0 IRON DEFICIENCY ANEMIA SECONDARY TO BLOO 10/07/2018 SHIREEN AGARWAL N Ot E03.9 HYPOTHYROIDISM, UNSPECIFIED 10/07/2018 ANY, JJAN N Ot 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 10/07/2018 ANYSHIREEN N Ot E53.8 DEFICIENCY OF OTHER SPECIFIED B GROUP 10/07/2018 ANY SHIREEN N Ot I12.9 HYPERTENSIVE CHRONIC KIDNEY DISEASE W ST 10/07/2018 ANYSHIREEN N Ot I25.10 ATHSCL HEART DISEASE OF [place] CORONARY 10/07/2018 ANYSHIREEN N Ot I48.91 UNSPECIFIED ATRIAL FIBRILLATION 10/07/2018 ANYSHIREEN N Ot K31.819 ANGIODYSPLASIA OF STOMACH AND DUODENUM W 10/07/2018 SHIREEN AGARWAL N Ot K74.60 UNSPECIFIED CIRRHOSIS OF LIVER 10/07/2018 ANYSHIREEN N Ot N18.3 CHRONIC KIDNEY DISEASE, STAGE 3 (MODERAT 10/07/2018 ANYSHIREEN BALDWIN N Ot Z79.899 OTHER POOL LIFEGUARD (CURRENT) DRUG THERAPY 10/07/2018 ANYSHIREEN N Ot D50.0 IRON DEFICIENCY ANEMIA SECONDARY TO BLOO 10/07/2018 SHIREEN AGARWAL N Ot E03.9 HYPOTHYROIDISM, UNSPECIFIED 10/07/2018 ANYSHIREEN N Ot 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 10/07/2018 ANYSHIREEN N Ot E53.8 DEFICIENCY OF OTHER SPECIFIED B GROUP 10/07/2018 ANYSHIREEN N Ot I12.9 HYPERTENSIVE CHRONIC KIDNEY DISEASE W ST 10/07/2018 ANYSHIREEN N Ot I25.10 ATHSCL HEART DISEASE OF [place] CORONARY 10/07/2018 ANYSHIREEN N Ot I48.91 UNSPECIFIED ATRIAL FIBRILLATION 10/07/2018 SHIREEN AGARWAL N Ot K31.819 ANGIODYSPLASIA OF STOMACH AND DUODENUM W 10/07/2018 ANYSHIREEN N Ot K74.60 UNSPECIFIED CIRRHOSIS OF LIVER 10/07/2018 ANYSHIREEN N Ot N18.3 CHRONIC KIDNEY DISEASE, STAGE 3 (MODERAT 10/07/2018 ANYSHIREEN N Ot Z79.899 OTHER POOL LIFEGUARD (CURRENT) DRUG THERAPY 10/07/2018 ANYSHIREEN N Ot D50.0 IRON DEFICIENCY ANEMIA SECONDARY TO BLOO 10/07/2018 ANYSHIREEN N Ot E03.9 HYPOTHYROIDISM, UNSPECIFIED 10/07/2018 ANYSHIREEN N Ot 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 10/07/2018 SHIREEN AGARWAL N Ot E53.8 DEFICIENCY OF OTHER SPECIFIED B GROUP 10/07/2018 SHIREEN AGARWAL N Ot I12.9 HYPERTENSIVE CHRONIC KIDNEY DISEASE W ST 10/07/2018 SHIREEN AGARWAL N Ot I25.10 ATHSCL HEART DISEASE OF [place] CORONARY 10/07/2018 SHIREEN AGARWAL N Ot I48.91 UNSPECIFIED ATRIAL FIBRILLATION 10/07/2018 SHIREEN AGARWAL N Ot K31.819 ANGIODYSPLASIA OF STOMACH AND DUODENUM W 10/07/2018 SHIREEN AGARWAL N Ot K74.60 UNSPECIFIED CIRRHOSIS OF LIVER 10/07/2018 SHIREEN AGARWAL N Ot N18.3 CHRONIC KIDNEY DISEASE, STAGE 3 (MODERAT 10/07/2018 SHIREEN AGARWAL N Ot Z79.899 OTHER JAIL (CURRENT) DRUG THERAPY 10/08/2018 KRUNAL KHOURY PHD, LULA Clement Ot E03.9 HYPOTHYROIDISM, UNSPECIFIED 10/08/2018 KRUNAL KHOURY PHD, LULA Clement Ot I50.32 CHRONIC DIASTOLIC (CONGESTIVE) HEART KATY 10/08/2018 SHIREEN AGARWAL Ot D50.0 IRON DEFICIENCY ANEMIA SECONDARY TO BLOO 10/08/2018 SHIREEN AGARWAL N Ot E03.9 HYPOTHYROIDISM, UNSPECIFIED 10/08/2018 SHIREEN AGARWAL N Ot 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 10/08/2018 SHIREEN AGARWAL Ot E53.8 DEFICIENCY OF OTHER SPECIFIED B GROUP 10/08/2018 SHIREEN AGARWAL N Ot I12.9 HYPERTENSIVE CHRONIC KIDNEY DISEASE W ST 10/08/2018 SHIREEN AGARWAL Ot I25.10 ATHSCL HEART DISEASE OF [place] CORONARY 10/08/2018 SHIREEN AGARWAL N Ot I48.91 UNSPECIFIED ATRIAL FIBRILLATION 10/08/2018 SHIREEN AGARWAL N Ot K31.819 ANGIODYSPLASIA OF STOMACH AND DUODENUM W 10/08/2018 SHIREEN AGARWAL N Ot K74.60 UNSPECIFIED CIRRHOSIS OF LIVER 10/08/2018 SHIREEN AGARWAL N Ot N18.3 CHRONIC KIDNEY DISEASE, STAGE 3 (MODERAT 10/08/2018 SHIREEN AGARWAL N Ot Z79.899 OTHER JAIL (CURRENT) DRUG THERAPY 10/08/2018 SHIREEN AGARWAL N Ot D50.0 IRON DEFICIENCY ANEMIA SECONDARY TO BLOO 10/08/2018 ANY, SHIREEN N Ot E03.9 HYPOTHYROIDISM, UNSPECIFIED 10/08/2018 ANY, JJAN N Ot 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 10/08/2018 ANY BOBBLU N Ot E53.8 DEFICIENCY OF OTHER SPECIFIED B GROUP 10/08/2018 ANY BOBAN N Ot I12.9 HYPERTENSIVE CHRONIC KIDNEY DISEASE W ST 10/08/2018 ANY SHIREEN N Ot I25.10 ATHSCL HEART DISEASE OF [place] CORONARY 10/08/2018 ANY, BOBAN N Ot I48.91 UNSPECIFIED ATRIAL FIBRILLATION 10/08/2018 ANY, BOBAN N Ot K31.819 ANGIODYSPLASIA OF STOMACH AND DUODENUM W 10/08/2018 ANY, BOBBLU N Ot K74.60 UNSPECIFIED CIRRHOSIS OF LIVER 10/08/2018 ANY, BOBAN N Ot N18.3 CHRONIC KIDNEY DISEASE, STAGE 3 (MODERAT 10/08/2018 ANY BOBBLU N Ot Z79.899 OTHER JAIL (CURRENT) DRUG THERAPY 10/08/2018 ANYSHIREEN N Ot D50.0 IRON DEFICIENCY ANEMIA SECONDARY TO BLOO 10/08/2018 ANY, BOBBLU N Ot E03.9 HYPOTHYROIDISM, UNSPECIFIED 10/08/2018 ANY, BOBAN N Ot 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 10/08/2018 ANY BOBBLU N Ot E53.8 DEFICIENCY OF OTHER SPECIFIED B GROUP 10/08/2018 ANY BOBBLU N Ot I12.9 HYPERTENSIVE CHRONIC KIDNEY DISEASE W ST 10/08/2018 ANY JJBLU N Ot I25.10 ATHSCL HEART DISEASE OF [place] CORONARY 10/08/2018 ANY BOBLBU N Ot I48.91 UNSPECIFIED ATRIAL FIBRILLATION 10/08/2018 ANY, BOBAN N Ot K31.819 ANGIODYSPLASIA OF STOMACH AND DUODENUM W 10/08/2018 ANY BOBBLU N Ot K74.60 UNSPECIFIED CIRRHOSIS OF LIVER 10/08/2018 ANY, BOBAN N Ot N18.3 CHRONIC KIDNEY DISEASE, STAGE 3 (MODERAT 10/08/2018 ANY, BOBAN N Ot Z79.899 OTHER POOL LIFEGUARD (CURRENT) DRUG THERAPY 10/14/2018 KRUNAL KHOURY PHD, LULA S Ot K31.819 ANGIODYSPLASIA OF STOMACH AND DUODENUM W 10/22/2018 SHIREEN AGARWAL Solange Ot D50.0 IRON DEFICIENCY ANEMIA SECONDARY TO BLOO 10/22/2018 SHIREEN AGARWAL Solange Ot E03.9 HYPOTHYROIDISM, UNSPECIFIED 10/22/2018 SHIREEN AGARWAL Solange Ot 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 10/22/2018 SHIREEN AGARWAL Solange Ot E53.8 DEFICIENCY OF OTHER SPECIFIED B GROUP 10/22/2018 SHIREEN AGARWAL Solange Ot I12.9 HYPERTENSIVE CHRONIC KIDNEY DISEASE W ST 10/22/2018 SHIREEN AGARWAL Solange Ot I25.10 ATHSCL HEART DISEASE OF [place] CORONARY 10/22/2018 SHIREEN AGARWAL Solange Ot I48.91 UNSPECIFIED ATRIAL FIBRILLATION 10/22/2018 SHIREEN AGARWAL Solange Ot K31.819 ANGIODYSPLASIA OF STOMACH AND DUODENUM W 10/22/2018 SHIREEN AGARWAL Solange Ot K74.60 UNSPECIFIED CIRRHOSIS OF LIVER 10/22/2018 SHIREEN AGARWAL Solange Ot N18.3 CHRONIC KIDNEY DISEASE, STAGE 3 (MODERAT 10/22/2018 SHIREEN AGARWAL Solange Ot Z79.899 OTHER POOL LIFEGUARD (CURRENT) DRUG THERAPY 10/25/2018 KRUNAL KHOURY PHD, LULA Clement Ot D50.0 IRON DEFICIENCY ANEMIA SECONDARY TO BLOO 10/25/2018 KRUNAL KHOURY PHD, LULA Clement Ot E03.9 HYPOTHYROIDISM, UNSPECIFIED 10/25/2018 KRUNAL KHOURY PHD, LULA Clement Ot 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3 CHRONIC KIDNEY DISEASE, STAGE 3 (MODERAT 10/25/2018 KRUNAL KHOURY PHD, LULA Clement Ot Z79.899 OTHER POOL LIFEGUARD (CURRENT) DRUG THERAPY 11/02/2018 KRUNAL KHOURY PHD, LULA Clement Ot K31.819 ANGIODYSPLASIA OF STOMACH AND DUODENUM W 11/06/2018 MICHELLE GARCIA DO Ot A41.9 SEPSIS, UNSPECIFIED ORGANISM 11/06/2018 MICHELLE GARCIA DO Ot D50.0 IRON DEFICIENCY ANEMIA SECONDARY TO BLOO 11/06/2018 MICHELLE GARCIA DO Ot D61.81 8 OTHER PANCYTOPENIA 11/06/2018 MICHELLE GARCIA DO Ot E03.9 HYPOTHYROIDISM, UNSPECIFIED 11/06/2018 MICHELLE GARCIA DO Ot E11.65 TYPE 2 DIABETES MELLITUS WITH HYPERGLYCE 11/06/2018 MICHELLE GARCIA DO Ot E78.00 PURE HYPERCHOLESTEROLEMIA, UNSPECIFIED 11/06/2018 MICHELLE GARCIA DO Ot E86.0 DEHYDRATION 11/06/2018 MICHELLE GARCIA DO Ot 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 11/06/2018 MICHELLE GARCIA DO Ot I21.A1 MYOCARDIAL INFARCTION TYPE 2 11/06/2018 MICHELLE GARCIA DO Ot I25.10 ATHSCL HEART DISEASE OF [place] CORONARY 11/06/2018 MICHELLE GARCIA DO Ot I25.2 OLD MYOCARDIAL INFARCTION 11/06/2018 MICHELLE GRACIA DO Ot I48.0 PAROXYSMAL ATRIAL FIBRILLATION 11/06/2018 MICHELLE GARCIA DO Ot I50.32 CHRONIC DIASTOLIC (CONGESTIVE) HEART KATY 11/06/2018 MICHELLE GARCIA DO Ot 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 11/06/2018 MICHELLE GARCIA DO Ot I87.2 VENOUS INSUFFICIENCY (CHRONIC) (PERIPHER 11/06/2018 MICHELLE GARCIA DO Ot J18.9 PNEUMONIA, UNSPECIFIED ORGANISM 11/06/2018 MICHELLE GARCIA DO Ot J90 PLEURAL EFFUSION, NOT ELSEWHERE CLASSIFI 11/06/2018 MICHELLE GARCIA DO Ot J96.01 ACUTE RESPIRATORY FAILURE WITH HYPOXIA 11/06/2018 MICHELLE GARCIA DO Ot K31.81 1 ANGIODYSPLASIA OF STOMACH AND DUODENUM W 11/06/2018 MICHELLE GARCIA DO Ot K74.60 UNSPECIFIED CIRRHOSIS OF LIVER 11/06/2018 MICHELLE GARCIA DO Ot K76.6 PORTAL HYPERTENSION 11/06/2018 MICHELLE GARCIA DO Ot N17.9 ACUTE KIDNEY FAILURE, UNSPECIFIED 11/06/2018 MICHELLE GARCIA DO Ot N18.9 CHRONIC KIDNEY DISEASE, UNSPECIFIED 11/06/2018 MICHELLE GARCIA DO Ot N30.00 ACUTE CYSTITIS WITHOUT HEMATURIA 11/06/2018 MICHELLE GARCIA DO Ot R41.0 DISORIENTATION, UNSPECIFIED 11/06/2018 MICHELLE GARCIA DO Ot R63.4 ABNORMAL WEIGHT LOSS 11/06/2018 MICHELLE GARCIA DO Ot Z79.4 POOL LIFEGUARD (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 OF INSULIN 11/06/2018 MICHELLE GARCIA DO Ot Z95.1 PRESENCE OF AORTOCORONARY BYPASS GRAFT 11/06/2018 MICHELLE GARCIA DO Ot Z95.5 PRESENCE OF CORONARY ANGIOPLASTY IMPLANT 11/06/2018 MICHELLE GARCIA DO Ot Z99.81 DEPENDENCE ON SUPPLEMENTAL OXYGEN 11/06/2018 MICHELLE GARCIA DO Ot A41.9 SEPSIS, UNSPECIFIED ORGANISM 11/06/2018 MICHELLE GARCIA DO Ot B37.3 CANDIDIASIS OF VULVA AND VAGINA 11/06/2018 MICHELLE GARCIA DO Ot D50.0 IRON DEFICIENCY ANEMIA SECONDARY TO BLOO 11/06/2018 MICHELLE GARCIA DO Ot D61.81 8 OTHER PANCYTOPENIA 11/06/2018 MICHELLE GARCIA DO Ot E03.9 HYPOTHYROIDISM, UNSPECIFIED 11/06/2018 MICHELLE GARCIA DO Ot E11.65 TYPE 2 DIABETES MELLITUS WITH HYPERGLYCE 11/06/2018 MICHELLE GARCIA DO Ot E78.00 PURE HYPERCHOLESTEROLEMIA, UNSPECIFIED 11/06/2018 EMILIANO GARCIA DOI Ot E86.0 DEHYDRATION 11/06/2018 MICHELLE GARCIA DO Ot G93.41 METABOLIC ENCEPHALOPATHY 11/06/2018 MICHELLE GARCIA DO Ot 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 11/06/2018 MICHELLE GARCIA DO Ot I21.A1 MYOCARDIAL INFARCTION TYPE 2 11/06/2018 MICHELLE GARCIA DO Ot I25.10 ATHSCL HEART DISEASE OF [place] CORONARY 11/06/2018 MICHELLE GARCIA DO Ot I25.2 OLD MYOCARDIAL INFARCTION 11/06/2018 EMILIANO GARCIA DOI Ot I48.0 PAROXYSMAL ATRIAL FIBRILLATION 11/06/2018 MICHELLE GARCIA DO Ot I50.32 CHRONIC DIASTOLIC (CONGESTIVE) HEART KATY 11/06/2018 EMILIANO GARCIA DOI Ot 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 11/06/2018 EMILIANO GARCIA DOI Ot I87.2 VENOUS INSUFFICIENCY (CHRONIC) (PERIPHER 11/06/2018 MICHELLE GARCIA DO Ot J18.1 LOBAR PNEUMONIA, UNSPECIFIED ORGANISM 11/06/2018 EMILIANO GARCIA DOI Ot J18.9 PNEUMONIA, UNSPECIFIED ORGANISM 11/06/2018 EMILIANO GARCIA DOI Ot J90 PLEURAL EFFUSION, NOT ELSEWHERE CLASSIFI 11/06/2018 MICHELLE GARCIA DO Ot J96.01 ACUTE RESPIRATORY FAILURE WITH HYPOXIA 11/06/2018 MICHELLE GARCIA DO Ot K31.81 1 ANGIODYSPLASIA OF STOMACH AND DUODENUM W 11/06/2018 EMILIANO GARCIA DOI Ot K74.60 UNSPECIFIED CIRRHOSIS OF LIVER 11/06/2018 EMILIANO GARCIA DOI Ot K76.6 PORTAL HYPERTENSION 11/06/2018 EMILIANO GARCIA DOI Ot N17.9 ACUTE KIDNEY FAILURE, UNSPECIFIED 11/06/2018 MICHELLE GARCIA DO Ot N18.9 CHRONIC KIDNEY DISEASE, UNSPECIFIED 11/06/2018 EMILIANO GARCIA DOI Ot N30.00 ACUTE CYSTITIS WITHOUT HEMATURIA 11/06/2018 MICHELLE GARCIA DO Ot R41.0 DISORIENTATION, UNSPECIFIED 11/06/2018 MICHELLE GARCIA DO Ot R63.4 ABNORMAL WEIGHT LOSS 11/06/2018 MICHELLE GARCIA DO Ot R65.21 SEVERE SEPSIS WITH SEPTIC SHOCK 11/06/2018 EMILIANO GARCIA DOI Ot Z79.4 POOL LIFEGUARD (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 OF INSULIN 11/06/2018 MICHELLE GARCIA DO Ot Z95.1 PRESENCE OF AORTOCORONARY BYPASS GRAFT 11/06/2018 MICHELLE GARCIA DO Ot Z95.5 PRESENCE OF CORONARY ANGIOPLASTY IMPLANT 11/06/2018 EMILIANO GARCIA DOI Ot Z99.81 DEPENDENCE ON SUPPLEMENTAL OXYGEN 11/10/2018 SHIREEN AGARWAL Ot D50.0 IRON DEFICIENCY ANEMIA SECONDARY TO BLOO 11/10/2018 ANY, BOBAN N Ot E03.9 HYPOTHYROIDISM, UNSPECIFIED 11/10/2018 SHIREEN AGARWAL N Ot 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 11/10/2018 SHIREEN AGARWAL N Ot E53.8 DEFICIENCY OF OTHER SPECIFIED B GROUP 11/10/2018 SHIREEN AGARWAL N Ot I12.9 HYPERTENSIVE CHRONIC KIDNEY DISEASE W ST 11/10/2018 SHIREEN AGARWAL N Ot I25.10 ATHSCL HEART DISEASE OF [place] CORONARY 11/10/2018 SHIREEN AGARWAL N Ot I48.91 UNSPECIFIED ATRIAL FIBRILLATION 11/10/2018 SHIREEN AGARWAL N Ot K31.819 ANGIODYSPLASIA OF STOMACH AND DUODENUM W 11/10/2018 JJ AGARWALBLU N Ot K74.60 UNSPECIFIED CIRRHOSIS OF LIVER 11/10/2018 SHIREEN AGARWAL N Ot N18.3 CHRONIC KIDNEY DISEASE, STAGE 3 (MODERAT 11/10/2018 ANY SHIREEN N Ot Z79.899 OTHER POOL LIFEGUARD (CURRENT) DRUG THERAPY 11/16/2018 ANYSHIREEN N Ot D50.0 IRON DEFICIENCY ANEMIA SECONDARY TO BLOO 11/16/2018 SHIREEN AGARWAL N Ot E03.9 HYPOTHYROIDISM, UNSPECIFIED 11/16/2018 SHIREEN AGARWAL N Ot 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 11/16/2018 SHIREEN AGARWAL N Ot E53.8 DEFICIENCY OF OTHER SPECIFIED B GROUP 11/16/2018 SHIREEN AGARWAL N Ot I12.9 HYPERTENSIVE CHRONIC KIDNEY DISEASE W ST 11/16/2018 SHIREEN AGARWAL N Ot I25.10 ATHSCL HEART DISEASE OF [place] CORONARY 11/16/2018 ANY JJBLU N Ot I48.91 UNSPECIFIED ATRIAL FIBRILLATION 11/16/2018 SHIREEN AGARWAL N Ot K31.819 ANGIODYSPLASIA OF STOMACH AND DUODENUM W 11/16/2018 ANYSHIREEN N Ot K74.60 UNSPECIFIED CIRRHOSIS OF LIVER 11/16/2018 ANYSHIREEN N Ot N18.3 CHRONIC KIDNEY DISEASE, STAGE 3 (MODERAT 11/16/2018 ANYSHIREEN N Ot Z79.899 OTHER POOL LIFEGUARD (CURRENT) DRUG THERAPY 11/24/2018 KRUNAL KHOURY PHD, LULA Clement Ot D50.0 IRON DEFICIENCY ANEMIA SECONDARY TO BLOO 11/24/2018 KRUNAL KHOURY PHD, LULA Clement Ot E03.9 HYPOTHYROIDISM, UNSPECIFIED 11/24/2018 KRUNAL KHOURY PHD, LULA Clement Ot 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 11/24/2018 KRUNAL KHORUY PHD, LULA Clement Ot E53.8 DEFICIENCY OF OTHER SPECIFIED B GROUP 11/24/2018 KRUNAL KHOURY PHD, LULA Clement Ot I12.9 HYPERTENSIVE CHRONIC KIDNEY DISEASE W ST 11/24/2018 KRUNAL KHOURY PHD, LULA Clement Ot I25.10 ATHSCL HEART DISEASE OF [place] CORONARY 11/24/2018 KRUNAL KHOURY PHD, LULA Clement Ot I48.91 UNSPECIFIED ATRIAL FIBRILLATION 11/24/2018 KRUNAL KHOURY PHD, LULA Clement Ot K31.819 ANGIODYSPLASIA OF STOMACH AND DUODENUM W 11/24/2018 KRUNAL KHOURY PHD, LULA Clement Ot K74.60 UNSPECIFIED CIRRHOSIS OF LIVER 11/24/2018 KRUNAL KHOURY PHD, LULA Clement Ot N18.3 CHRONIC KIDNEY DISEASE, STAGE 3 (MODERAT 11/24/2018 KRUNAL KHOURY PHD, LULA Clement Ot Z79.899 OTHER JAIL (CURRENT) DRUG THERAPY 11/29/2018 SHIREEN AGARWAL N Ot D50.0 IRON DEFICIENCY ANEMIA SECONDARY TO BLOO 11/29/2018 SHIREEN AGARWAL Ot E03.9 HYPOTHYROIDISM, UNSPECIFIED 11/29/2018 SHIREEN AGARWAL N Ot 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 11/29/2018 SHIREEN AGARWAL Ot E53.8 DEFICIENCY OF OTHER SPECIFIED B GROUP 11/29/2018 SHIREEN AGARWAL N Ot I12.9 HYPERTENSIVE CHRONIC KIDNEY DISEASE W ST 11/29/2018 SHIREEN AGARWAL N Ot I25.10 ATHSCL HEART DISEASE OF [place] CORONARY 11/29/2018 SHIREEN AGARWAL N Ot I48.91 UNSPECIFIED ATRIAL FIBRILLATION 11/29/2018 SHIREEN AGARWAL N Ot K31.819 ANGIODYSPLASIA OF STOMACH AND DUODENUM W 11/29/2018 SHIREEN AGARWAL N Ot K74.60 UNSPECIFIED CIRRHOSIS OF LIVER 11/29/2018 SHIREEN AGARWAL N Ot N18.3 CHRONIC KIDNEY DISEASE, STAGE 3 (MODERAT 11/29/2018 SHIREEN AGARWAL N Ot Z79.899 OTHER JAIL (CURRENT) DRUG THERAPY 12/13/2018 KRUNAL KHOURY PHD, LULA Clement Ot D50.0 IRON DEFICIENCY ANEMIA SECONDARY TO BLOO 12/13/2018 KRUNAL KHOURY PHD, LULA Clement Ot E03.9 HYPOTHYROIDISM, UNSPECIFIED 12/13/2018 KRUNAL KHOURY PHD, LULA Clement Ot 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 12/13/2018 KRUNAL KHOURY PHD, LULA Clement Ot E53.8 DEFICIENCY OF OTHER SPECIFIED B GROUP 12/13/2018 KRUNAL KHOURY PHD, LULA Clement Ot I12.9 HYPERTENSIVE CHRONIC KIDNEY DISEASE W ST 12/13/2018 KRUNAL KHOURY PHD, LULA Clement Ot I25.10 ATHSCL HEART DISEASE OF [place] CORONARY 12/13/2018 KRUNAL KHOURY PHD, LULA Clement Ot I48.91 UNSPECIFIED ATRIAL FIBRILLATION 12/13/2018 KRUNAL KHOURY PHD, LULA Clement Ot K31.819 ANGIODYSPLASIA OF STOMACH AND DUODENUM W 12/13/2018 KRUNAL KHOURY PHD, LULA Clement Ot K74.60 UNSPECIFIED CIRRHOSIS OF LIVER 12/13/2018 KRUNAL KHOURY PHD, LULA Clement Ot N18.3 CHRONIC KIDNEY DISEASE, STAGE 3 (MODERAT 12/13/2018 KRUNAL KHOURY PHD, LULA Clement Ot Z79.899 OTHER JAIL (CURRENT) DRUG THERAPY 12/28/2018 MICHELLE GARCIA DO Ot D64.9 ANEMIA, UNSPECIFIED 12/28/2018 MICHELLE GARCIA DO Ot E11.01 TYPE 2 DIABETES MELLITUS WITH HYPEROSMOL 12/28/2018 MICHELLE GARCIA DO Ot E11.65 TYPE 2 DIABETES MELLITUS WITH HYPERGLYCE 12/28/2018 RADHA WOOD MICHELLE Ot E78.5 HYPERLIPIDEMIA, UNSPECIFIED 12/28/2018 RADHA WOOD MICHELLE Ot E86.0 DEHYDRATION 12/28/2018 RADHA WOOD MICHELLE Ot E87.1 HYPO-OSMOLALITY AND HYPONATREMIA 12/28/2018 MICHELLE GARCIA DO Ot E87.2 ACIDOSIS 12/28/2018 RADHA WOOD MICHELLE Ot F41.9 ANXIETY DISORDER, UNSPECIFIED 12/28/2018 RADHA WOOD MICHELLE Ot G47.30 SLEEP APNEA, UNSPECIFIED 12/28/2018 MICHELLE GARCIA DO Ot 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 12/28/2018 GARCIAFAVIO WOOD MICHELLE Ot I25.10 ATHSCL HEART DISEASE OF [place] CORONARY 12/28/2018 GARCIAFAVIO WOOD MICHELLE Ot I25.2 OLD MYOCARDIAL INFARCTION 12/28/2018 GARCIA DO MICHELLE Ot I48.0 PAROXYSMAL ATRIAL FIBRILLATION 12/28/2018 GARCIA DO MICHELLE Ot I50.9 HEART FAILURE, UNSPECIFIED 12/28/2018 RADHA WOOD MICHELLE Ot I95.9 HYPOTENSION, UNSPECIFIED 12/28/2018 GARCIA DO MICHELLE Ot K21.9 GASTRO-ESOPHAGEAL REFLUX DISEASE WITHOUT 12/28/2018 GARCIA DO MICHELLE Ot K31.81 9 ANGIODYSPLASIA OF STOMACH AND DUODENUM W 12/28/2018 RADHA DO MICHELLE Ot N17.9 ACUTE KIDNEY FAILURE, UNSPECIFIED 12/28/2018 GARCIA DO MICHELLE Ot N18.9 CHRONIC KIDNEY DISEASE, UNSPECIFIED 12/28/2018 GARCIA DO MICHELLE Ot N30.00 ACUTE CYSTITIS WITHOUT HEMATURIA 12/28/2018 EMILIANO GARCIA DOI Ot Z79.4 JAIL (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 OF INSULIN 12/28/2018 RADHA WOOD MICHELLE Ot Z87.89 1 PERSONAL HISTORY OF NICOTINE DEPENDENCE 12/28/2018 RADHA WOOD MICHELLE Ot Z95.1 PRESENCE OF AORTOCORONARY BYPASS GRAFT 12/28/2018 RADHA WOOD MICHELLE Ot Z95.5 PRESENCE OF CORONARY ANGIOPLASTY IMPLANT 12/28/2018 RADHA WOOD MICHELLE Ot Z99.81 DEPENDENCE ON SUPPLEMENTAL OXYGEN 01/05/2019 SHIREEN AGARWAL Ot D50.0 IRON DEFICIENCY ANEMIA SECONDARY TO BLOO 01/05/2019 SHIREEN AGARWAL Ot E03.9 HYPOTHYROIDISM, UNSPECIFIED 01/05/2019 SHIREEN AGARWAL Ot 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 01/05/2019 SHIREEN AGARWAL Ot E53.8 DEFICIENCY OF OTHER SPECIFIED B GROUP 01/05/2019 SHIREEN AGARWAL Ot I12.9 HYPERTENSIVE CHRONIC KIDNEY DISEASE W ST 01/05/2019 SHIREEN AGARWAL Ot I25.10 ATHSCL HEART DISEASE OF [place] CORONARY 01/05/2019 SHIREEN AGARWAL Ot I48.91 UNSPECIFIED ATRIAL FIBRILLATION 01/05/2019 ANY, BOBAN N Ot K31.819 ANGIODYSPLASIA OF STOMACH AND DUODENUM W 01/05/2019 SHIREEN AGARWAL N Ot K74.60 UNSPECIFIED CIRRHOSIS OF LIVER 01/05/2019 SHIREEN AGARWAL N Ot N18.3 CHRONIC KIDNEY DISEASE, STAGE 3 (MODERAT 01/05/2019 SHIREEN AGARWAL N Ot Z79.899 OTHER POOL LIFEGUARD (CURRENT) DRUG THERAPY 01/06/2019 SHIREEN AGARWAL N Ot D50.0 IRON DEFICIENCY ANEMIA SECONDARY TO BLOO 01/06/2019 ANYJJBLU N Ot E03.9 HYPOTHYROIDISM, UNSPECIFIED 01/06/2019 SHIREEN AGARWAL N Ot 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 01/06/2019 SHIREEN AGARWAL N Ot E53.8 DEFICIENCY OF OTHER SPECIFIED B GROUP 01/06/2019 SHIREEN AGARWAL N Ot I12.9 HYPERTENSIVE CHRONIC KIDNEY DISEASE W ST 01/06/2019 SHIREEN AGARWAL N Ot I25.10 ATHSCL HEART DISEASE OF [place] CORONARY 01/06/2019 SHIREEN AGARWAL N Ot I48.91 UNSPECIFIED ATRIAL FIBRILLATION 01/06/2019 SHRIEEN AGARWAL N Ot K31.819 ANGIODYSPLASIA OF STOMACH AND DUODENUM W 01/06/2019 SHIREEN AGARWAL N Ot K74.60 UNSPECIFIED CIRRHOSIS OF LIVER 01/06/2019 SHIREEN AGARWAL N Ot N18.3 CHRONIC KIDNEY DISEASE, STAGE 3 (MODERAT 01/06/2019 SHIREEN AGARWAL N Ot Z79.899 OTHER POOL LIFEGUARD (CURRENT) DRUG THERAPY 01/10/2019 MACIEL WELCH APRN Ot M79.89 OTHER SPECIFIED SOFT TISSUE DISORDERS 01/10/2019 SHIREEN AGARWAL N Ot D64.9 ANEMIA, UNSPECIFIED 01/10/2019 ANYJJBLU N Ot E11.9 TYPE 2 DIABETES MELLITUS WITHOUT COMPLIC 01/10/2019 SHIREEN AGARWAL N Ot K74.60 UNSPECIFIED CIRRHOSIS OF LIVER 01/10/2019 ANY SHIREEN N Ot N18.9 CHRONIC KIDNEY DISEASE, UNSPECIFIED 01/10/2019 BRIAN KHOURY, JAMES Champion Ot D64.9 ANEMIA, UNSPECIFIED 01/10/2019 JAMES TORRES MD Ot E11.2 2 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 01/10/2019 BRIAN KHOURY, JAMES Champion Ot K74.6 0 UNSPECIFIED CIRRHOSIS OF LIVER 01/10/2019 BRIAN KHOURY, JAMES Champion Ot N18.9 CHRONIC KIDNEY DISEASE, UNSPECIFIED 01/10/2019 BRIAN KHOURY, JAMES Champion Ot E03.9 HYPOTHYROIDISM, UNSPECIFIED 01/10/2019 KRUNAL KHOURY PHD, LULA Clement Ot I50.32 CHRONIC DIASTOLIC (CONGESTIVE) HEART KATY 01/10/2019 KRUNAL KHOURY PHD, LULA Clement Ot E03.9 HYPOTHYROIDISM, UNSPECIFIED 01/10/2019 KRUNAL KHOURY PHD, LULA Clement Ot I50.32 CHRONIC DIASTOLIC (CONGESTIVE) HEART KATY 01/10/2019 KRUNAL KHOURY PHD, LULA Clement Ot I50.32 CHRONIC DIASTOLIC (CONGESTIVE) HEART KATY 01/10/2019 KRUNAL KHOURY PHD, LULA Clement Ot K31.819 ANGIODYSPLASIA OF STOMACH AND DUODENUM W 01/10/2019 KRUNAL KHOURY PHD, LULA Clement Ot D50.0 IRON DEFICIENCY ANEMIA SECONDARY TO BLOO 01/10/2019 KRUNAL KHOURY PHD, LULA Clement Ot E03.9 HYPOTHYROIDISM, UNSPECIFIED 01/10/2019 KRUNAL KHOURY PHD, LULA Clement Ot 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 01/10/2019 KRUNAL KHOURY PHD, LULA Clement Ot E53.8 DEFICIENCY OF OTHER SPECIFIED B GROUP 01/10/2019 KRUNAL KHOURY PHD, LULA Clement Ot I12.9 HYPERTENSIVE CHRONIC KIDNEY DISEASE W ST 01/10/2019 KRUNAL KHOURY PHD, LULA Clement Ot I25.10 ATHSCL HEART DISEASE OF [place] CORONARY 01/10/2019 KRUNAL KHOURY PHD, LULA Clement Ot I48.91 UNSPECIFIED ATRIAL FIBRILLATION 01/10/2019 KRUNAL KHOURY PHD, LULA Clement Ot K31.819 ANGIODYSPLASIA OF STOMACH AND DUODENUM W 01/10/2019 KRUNAL KHOURY PHD, LULA Clement Ot K74.60 UNSPECIFIED CIRRHOSIS OF LIVER 01/10/2019 KRUNAL KHOURY PHD, LULA Clement Ot N18.3 CHRONIC KIDNEY DISEASE, STAGE 3 (MODERAT 01/10/2019 KRUNAL KHOURY PHD, LULA Clement Ot Z79.899 OTHER JAIL (CURRENT) DRUG THERAPY 01/10/2019 SHIREEN AGARWAL Ot D50.0 IRON DEFICIENCY ANEMIA SECONDARY TO BLOO 01/10/2019 SHIREEN AGARWAL Solange Ot E03.9 HYPOTHYROIDISM, UNSPECIFIED 01/10/2019 SHIREEN AGARWAL Solange Ot 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 01/10/2019 SHIREEN AGARWAL Solagne Ot E53.8 DEFICIENCY OF OTHER SPECIFIED B GROUP 01/10/2019 SHIREEN AGARWAL Solange Ot I12.9 HYPERTENSIVE CHRONIC KIDNEY DISEASE W ST 01/10/2019 SHIREEN AGARWAL Solange Ot I25.10 ATHSCL HEART DISEASE OF [place] CORONARY 01/10/2019 ANY JJBLU Solange Ot I48.91 UNSPECIFIED ATRIAL FIBRILLATION 01/10/2019 SHIREEN AGARWAL Solange Ot K31.819 ANGIODYSPLASIA OF STOMACH AND DUODENUM W 01/10/2019 SHIREEN AGARWAL Solange Ot K74.60 UNSPECIFIED CIRRHOSIS OF LIVER 01/10/2019 SHIREEN GAARWAL Solange Ot N18.3 CHRONIC KIDNEY DISEASE, STAGE 3 (MODERAT 01/10/2019 SHIREEN AGARWAL Solange Ot Z79.899 OTHER POOL LIFEGUARD (CURRENT) DRUG THERAPY 01/16/2019 KRUNAL KHOURY PHD, LULA Clement Ot D50.0 IRON DEFICIENCY ANEMIA SECONDARY TO BLOO 01/16/2019 KRUNAL KHOURY PHD, LULA Clement Ot E03.9 HYPOTHYROIDISM, UNSPECIFIED 01/16/2019 KRUNAL KHOURY PHD, LULA Clement Ot 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 01/16/2019 KRUNAL KHOURY PHD, LULA Clement Ot E53.8 DEFICIENCY OF OTHER SPECIFIED B GROUP 01/16/2019 KRUNAL KHOURY PHD, LULA Clement Ot I12.9 HYPERTENSIVE CHRONIC KIDNEY DISEASE W ST 01/16/2019 KRUNAL KHOURY PHD, LULA Clement Ot I25.10 ATHSCL HEART DISEASE OF [place] CORONARY 01/16/2019 KRUNAL KHOURY PHD, LULA Clement Ot I48.91 UNSPECIFIED ATRIAL FIBRILLATION 01/16/2019 KRUNAL KHOURY PHD, LULA Clement Ot K31.819 ANGIODYSPLASIA OF STOMACH AND DUODENUM W 01/16/2019 KRUNAL KHOURY PHD, LULA Clement Ot K74.60 UNSPECIFIED CIRRHOSIS OF LIVER 01/16/2019 KRUNAL KHOURY PHD, LULA Clement Ot N18.3 CHRONIC KIDNEY DISEASE, STAGE 3 (MODERAT 01/16/2019 KRUNAL KHOURY PHD, LULA Clement Ot Z79.899 OTHER POOL LIFEGUARD (CURRENT) DRUG THERAPY 01/23/2019 KRUNAL KHOURY PHD, LULA Clement Ot D50.0 IRON DEFICIENCY ANEMIA SECONDARY TO BLOO 01/23/2019 KRUNAL KHOURY PHD, LULA Clement Ot E03.9 HYPOTHYROIDISM, UNSPECIFIED 01/23/2019 KRUNAL KHOURY PHD, LULA Clement Ot 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 01/23/2019 KRUNAL KHOURY PHD, LULA Clemetn Ot E53.8 DEFICIENCY OF OTHER SPECIFIED B GROUP 01/23/2019 KRUNAL KHOURY PHD, LULA Clement Ot I12.9 HYPERTENSIVE CHRONIC KIDNEY DISEASE W ST 01/23/2019 KRUNAL KHOURY PHD, LULA Clement Ot I25.10 ATHSCL HEART DISEASE OF [place] CORONARY 01/23/2019 KRUNAL KHOURY PHD, LULA Clement Ot I48.91 UNSPECIFIED ATRIAL FIBRILLATION 01/23/2019 KRUNAL KHOURY PHD, LULA Clement Ot K31.819 ANGIODYSPLASIA OF STOMACH AND DUODENUM W 01/23/2019 KRUNAL KHOURY PHD, LULA Clement Ot K74.60 UNSPECIFIED CIRRHOSIS OF LIVER 01/23/2019 KRUNAL KHOURY PHD, LULA Clement Ot N18.3 CHRONIC KIDNEY DISEASE, STAGE 3 (MODERAT 01/23/2019 KRUNAL KHOURY PHD, LULA Clement Ot Z79.899 OTHER POOL LIFEGUARD (CURRENT) DRUG THERAPY 02/23/2019 SHIREEN AGARWAL Ot D50.0 IRON DEFICIENCY ANEMIA SECONDARY TO BLOO 02/23/2019 SHIREEN AGARWAL Ot E03.9 HYPOTHYROIDISM, UNSPECIFIED 02/23/2019 SHIREEN AGARWAL Ot 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 02/23/2019 SHIREEN AGARWAL Ot E53.8 DEFICIENCY OF OTHER SPECIFIED B GROUP 02/23/2019 SHIREEN AGARWAL Ot I12.9 HYPERTENSIVE CHRONIC KIDNEY DISEASE W ST 02/23/2019 SHIREEN AGARWAL Ot I25.10 ATHSCL HEART DISEASE OF [place] CORONARY 02/23/2019 SHIREEN AGARWAL Ot I48.91 UNSPECIFIED ATRIAL FIBRILLATION 02/23/2019 SHIREEN AGARWAL Ot K31.819 ANGIODYSPLASIA OF STOMACH AND DUODENUM W 02/23/2019 SHIREEN AGARWAL Ot K74.60 UNSPECIFIED CIRRHOSIS OF LIVER 02/23/2019 SHIREEN AGARWAL Ot N18.3 CHRONIC KIDNEY DISEASE, STAGE 3 (MODERAT 02/23/2019 SHIREEN AGARWAL Ot Z79.899 OTHER POOL LIFEGUARD (CURRENT) DRUG THERAPY 02/24/2019 KRUNAL KHOURY PHD, LULA Clement Ot D50.0 IRON DEFICIENCY ANEMIA SECONDARY TO BLOO 02/24/2019 KRUNAL KHOURY PHD, LULA Clement Ot E03.9 HYPOTHYROIDISM, UNSPECIFIED 02/24/2019 KRUNAL KHOURY PHD, LULA Clement Ot 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 02/24/2019 KRUNAL KHOURY PHD, LULA Clement Ot E53.8 DEFICIENCY OF OTHER SPECIFIED B GROUP 02/24/2019 KRUNAL KHOURY PHD, LULA Clement Ot I12.9 HYPERTENSIVE CHRONIC KIDNEY DISEASE W ST 02/24/2019 KRUNAL KHOURY PHD, LULA Clement Ot I25.10 ATHSCL HEART DISEASE OF [place] CORONARY 02/24/2019 KRUNAL KHOURY PHD, LULA Clement Ot I48.91 UNSPECIFIED ATRIAL FIBRILLATION 02/24/2019 KRUNAL KHOURY PHD, LULA Clement Ot K31.819 ANGIODYSPLASIA OF STOMACH AND DUODENUM W 02/24/2019 KRUNAL KHOURY PHD, LULA Clement Ot K74.60 UNSPECIFIED CIRRHOSIS OF LIVER 02/24/2019 KRUNAL KHOURY PHD, LULA Clement Ot N18.3 CHRONIC KIDNEY DISEASE, STAGE 3 (MODERAT 02/24/2019 KRUNAL KHOURY PHD, LULA Clement Ot Z79.899 OTHER JAIL (CURRENT) DRUG THERAPY 03/11/2019 SHIREEN AGARWAL Ot D50.0 IRON DEFICIENCY ANEMIA SECONDARY TO BLOO 03/11/2019 SHIREEN AGARWAL Ot E03.9 HYPOTHYROIDISM, UNSPECIFIED 03/11/2019 SHIREEN AGARWAL Ot 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 03/11/2019 SHIREEN AGARWAL Ot E53.8 DEFICIENCY OF OTHER SPECIFIED B GROUP 03/11/2019 SHIREEN AGARWAL Ot I12.9 HYPERTENSIVE CHRONIC KIDNEY DISEASE W ST 03/11/2019 SHIREEN AGARWAL Ot I25.10 ATHSCL HEART DISEASE OF [place] CORONARY 03/11/2019 SHIREEN AGARWAL Ot I48.91 UNSPECIFIED ATRIAL FIBRILLATION 03/11/2019 ANYSHIREEN Ot K31.819 ANGIODYSPLASIA OF STOMACH AND DUODENUM W 03/11/2019 SHIREEN AGARWAL Ot K74.60 UNSPECIFIED CIRRHOSIS OF LIVER 03/11/2019 ANYSHIRENE Ot N18.3 CHRONIC KIDNEY DISEASE, STAGE 3 (MODERAT 03/11/2019 ANYSHIREEN Ot R82.998 OTHER ABNORMAL FINDINGS IN URINE 03/11/2019 SHIREEN AGARWAL Ot Z79.899 OTHER POOL LIFEGUARD (CURRENT) DRUG THERAPY 03/28/2019 KRUNAL KHOURY PHD, LULA Clement Ot D50.0 IRON DEFICIENCY ANEMIA SECONDARY TO BLOO 03/28/2019 KRUNAL KHOURY PHD, LULA Clement Ot E03.9 HYPOTHYROIDISM, UNSPECIFIED 03/28/2019 KRUNAL KHOURY PHD, LULA Clement Ot 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 03/28/2019 KRUNAL KHOURY PHD, LULA Clement Ot E53.8 DEFICIENCY OF OTHER SPECIFIED B GROUP 03/28/2019 KRUNAL KHOURY PHD, LULA Clement Ot I12.9 HYPERTENSIVE CHRONIC KIDNEY DISEASE W ST 03/28/2019 KRUNAL KHOURY PHD, LULA Clement Ot I25.10 ATHSCL HEART DISEASE OF [place] CORONARY 03/28/2019 KRUNAL KHOURY PHD, LULA Clement Ot I48.91 UNSPECIFIED ATRIAL FIBRILLATION 03/28/2019 KRUNAL KHOURY PHD, LULA Clement Ot K31.819 ANGIODYSPLASIA OF STOMACH AND DUODENUM W 03/28/2019 KRUNAL KHOURY PHD, LULA Clement Ot K74.60 UNSPECIFIED CIRRHOSIS OF LIVER 03/28/2019 KRUNAL KHOURY PHD, LULA Clement Ot N18.3 CHRONIC KIDNEY DISEASE, STAGE 3 (MODERAT 03/28/2019 KRUNAL KHOURY PHD, LULA Clement Ot Z79.899 OTHER POOL LIFEGUARD (CURRENT) DRUG THERAPY 03/28/2019 SHIREEN AGARWAL Ot D50.0 IRON DEFICIENCY ANEMIA SECONDARY TO BLOO 03/28/2019 SHIREEN AGARWAL Ot E03.9 HYPOTHYROIDISM, UNSPECIFIED 03/28/2019 SHIREEN AGARWAL Ot 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 03/28/2019 SHIREEN AGARWAL Ot E53.8 DEFICIENCY OF OTHER SPECIFIED B GROUP 03/28/2019 SHIREEN AGARWAL N Ot I12.9 HYPERTENSIVE CHRONIC KIDNEY DISEASE W ST 03/28/2019 ANY JJBLU N Ot I25.10 ATHSCL HEART DISEASE OF [place] CORONARY 03/28/2019 ANY JJBLU N Ot I48.91 UNSPECIFIED ATRIAL FIBRILLATION 03/28/2019 ANY JJBLU N Ot K31.819 ANGIODYSPLASIA OF STOMACH AND DUODENUM W 03/28/2019 ANY SHIREEN N Ot K74.60 UNSPECIFIED CIRRHOSIS OF LIVER 03/28/2019 ANY JJBLU N Ot N18.3 CHRONIC KIDNEY DISEASE, STAGE 3 (MODERAT 03/28/2019 ANY JJBLU N Ot R82.998 OTHER ABNORMAL FINDINGS IN URINE 03/28/2019 ANY SHIREEN N Ot Z79.899 OTHER POOL LIFEGUARD (CURRENT) DRUG THERAPY 04/10/2019 ANYJJBLU N Ot D50.0 IRON DEFICIENCY ANEMIA SECONDARY TO BLOO 04/10/2019 ANYSHIREEN N Ot E03.9 HYPOTHYROIDISM, UNSPECIFIED 04/10/2019 ANYSHIREEN N Ot 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 04/10/2019 ANY JJBLU N Ot E53.8 DEFICIENCY OF OTHER SPECIFIED B GROUP 04/10/2019 ANY JJBLU N Ot I12.9 HYPERTENSIVE CHRONIC KIDNEY DISEASE W ST 04/10/2019 ANY JJBLU N Ot I25.10 ATHSCL HEART DISEASE OF [place] CORONARY 04/10/2019 ANY JJBLU N Ot I48.91 UNSPECIFIED ATRIAL FIBRILLATION 04/10/2019 ANYSHIREEN N Ot K31.819 ANGIODYSPLASIA OF STOMACH AND DUODENUM W 04/10/2019 ANY JJBLU N Ot K74.60 UNSPECIFIED CIRRHOSIS OF LIVER 04/10/2019 ANY SHIREEN N Ot N18.3 CHRONIC KIDNEY DISEASE, STAGE 3 (MODERAT 04/10/2019 SHIREEN AGARWAL N Ot R82.998 OTHER ABNORMAL FINDINGS IN URINE 04/10/2019 ANYSHIREEN BALDWIN N Ot Z79.899 OTHER POOL LIFEGUARD (CURRENT) DRUG THERAPY 04/11/2019 KRUNAL KHOURY PHD, LULA Clement Ot D50.0 IRON DEFICIENCY ANEMIA SECONDARY TO BLOO 04/11/2019 KRUNAL KHOURY PHD, LULA S Ot E03.9 HYPOTHYROIDISM, UNSPECIFIED 04/11/2019 KRUNAL KHOURY PHD, LULA Clement Ot 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 04/11/2019 KRUNAL KHOURY PHD, LULA Clement Ot E53.8 DEFICIENCY OF OTHER SPECIFIED B GROUP 04/11/2019 KRUNAL KHOURY PHD, LULA Clement Ot I12.9 HYPERTENSIVE CHRONIC KIDNEY DISEASE W ST 04/11/2019 KRUNAL KHOURY PHD, LULA Clement Ot I25.10 ATHSCL HEART DISEASE OF [place] CORONARY 04/11/2019 KRUNAL KHOURY PHD, LULA Clement Ot I48.91 UNSPECIFIED ATRIAL FIBRILLATION 04/11/2019 KRUNAL KHOURY PHD, LULA Clement Ot K31.819 ANGIODYSPLASIA OF STOMACH AND DUODENUM W 04/11/2019 KRUNAL KHOURY PHD, LULA Clement Ot K74.60 UNSPECIFIED CIRRHOSIS OF LIVER 04/11/2019 KRUNAL KHOURY PHD, LULA Clement Ot N18.3 CHRONIC KIDNEY DISEASE, STAGE 3 (MODERAT 04/11/2019 KRUNAL KHOURY PHD, LULA Clement Ot Z79.899 OTHER JAIL (CURRENT) DRUG THERAPY 04/11/2019 SHIREEN AGARWAL Ot D50.0 IRON DEFICIENCY ANEMIA SECONDARY TO BLOO 04/11/2019 SHIREEN AGARWAL Ot E03.9 HYPOTHYROIDISM, UNSPECIFIED 04/11/2019 SHIREEN AGARWAL N Ot 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 04/11/2019 SHIREEN AGARWAL Ot E53.8 DEFICIENCY OF OTHER SPECIFIED B GROUP 04/11/2019 SHIREEN AGARWAL Ot I12.9 HYPERTENSIVE CHRONIC KIDNEY DISEASE W ST 04/11/2019 SHIREEN AGARWAL Ot I25.10 ATHSCL HEART DISEASE OF [place] CORONARY 04/11/2019 SHIREEN AGARWAL N Ot I48.91 UNSPECIFIED ATRIAL FIBRILLATION 04/11/2019 SHIREEN AGARWAL N Ot K31.819 ANGIODYSPLASIA OF STOMACH AND DUODENUM W 04/11/2019 SHIREEN AGARWAL N Ot K74.60 UNSPECIFIED CIRRHOSIS OF LIVER 04/11/2019 SHIREEN AGARWAL N Ot N18.3 CHRONIC KIDNEY DISEASE, STAGE 3 (MODERAT 04/11/2019 SHIREEN AGARWAL N Ot R82.998 OTHER ABNORMAL FINDINGS IN URINE 04/11/2019 SHIREEN AGARWAL N Ot Z79.899 OTHER POOL LIFEGUARD (CURRENT) DRUG THERAPY 04/12/2019 JAMES TORRES MD Ot D64.9 ANEMIA, UNSPECIFIED 04/12/2019 JAMES TORRES MD, Ot E11.2 2 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 04/12/2019 JAMES TORRES MD Ot E78.5 HYPERLIPIDEMIA, UNSPECIFIED 04/12/2019 JAMES TORRES MD, Ot F41.9 ANXIETY DISORDER, UNSPECIFIED 04/12/2019 JAMES TORRES MD Ot G89.2 9 OTHER CHRONIC PAIN 04/12/2019 JAMES TORRES MD Ot I12.9 HYPERTENSIVE CHRONIC KIDNEY DISEASE W ST 04/12/2019 JAMES TORRES MD, Ot I25.1 0 ATHSCL HEART DISEASE OF [place] CORONARY 04/12/2019 JAMES TORRES MD Ot I48.9 1 UNSPECIFIED ATRIAL FIBRILLATION 04/12/2019 JAMES TORRES MD Ot I95.9 HYPOTENSION, UNSPECIFIED 04/12/2019 JAMES TORRES MD Ot J30.9 ALLERGIC RHINITIS, UNSPECIFIED 04/12/2019 JAMES TORRES MD Ot K21.9 GASTRO-ESOPHAGEAL REFLUX DISEASE WITHOUT 04/12/2019 JAMES TORRES MD Ot K31.8 19 ANGIODYSPLASIA OF STOMACH AND DUODENUM W 04/12/2019 JAMES TORRES MD Ot K74.6 0 UNSPECIFIED CIRRHOSIS OF LIVER 04/12/2019 JAMES TORRES MD Ot M19.9 0 UNSPECIFIED OSTEOARTHRITIS, UNSPECIFIED 04/12/2019 JAMES TORRES MD Ot M54.9 DORSALGIA, UNSPECIFIED 04/12/2019 JAMES TORRES MD Ot N18.9 CHRONIC KIDNEY DISEASE, UNSPECIFIED 04/12/2019 JAMES TORRES MD Ot N30.0 1 ACUTE CYSTITIS WITH HEMATURIA 04/12/2019 JAMES TORRES MD, Ot Z79.4 POOL LIFEGUARD (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 OF INSULIN 04/12/2019 JAMES TORRES MD Ot Z80.3 FAMILY HISTORY OF MALIGNANT NEOPLASM OF 04/12/2019 JAMES TORRES MD, Ot Z82.4 9 FAMILY HX OF ISCHEM HEART DIS AND OTH DI 04/12/2019 GAULT MD, JAMES R Ot Z86.7 9 PERSONAL HISTORY OF OTHER DISEASES OF TH 04/12/2019 JAMES TORRES MD Ot Z87.8 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 04/12/2019 JAMES TORRES MD, Ot Z88.1 ALLERGY STATUS TO OTHER ANTIBIOTIC AGENT 04/12/2019 JAMES TORRES MD, Ot Z88.2 ALLERGY STATUS TO SULFONAMIDES STATUS 04/12/2019 JAMES TORRES MD Ot Z88.8 ALLERGY STATUS TO OTH DRUG/MEDS/BIOL SUB 04/12/2019 JAMES TORRES MD Ot D64.9 ANEMIA, UNSPECIFIED 04/12/2019 JAMES TORRES MD Ot E11.2 2 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 04/12/2019 JAMES TORRES MD, Ot E78.5 HYPERLIPIDEMIA, UNSPECIFIED 04/12/2019 JAMES TORRES MD, Ot F41.9 ANXIETY DISORDER, UNSPECIFIED 04/12/2019 JAMES TORRES MD Ot G89.2 9 OTHER CHRONIC PAIN 04/12/2019 JAMES TORRES MD Ot I12.9 HYPERTENSIVE CHRONIC KIDNEY DISEASE W ST 04/12/2019 JAMES TORRES MD, Ot I25.1 0 ATHSCL HEART DISEASE OF [place] CORONARY 04/12/2019 JAMES TORRES MD, Ot I48.9 1 UNSPECIFIED ATRIAL FIBRILLATION 04/12/2019 JAMES TORRES MD Ot I95.9 HYPOTENSION, UNSPECIFIED 04/12/2019 JAMES TORRES MD, Ot J30.9 ALLERGIC RHINITIS, UNSPECIFIED 04/12/2019 JAMES TORRES MD Ot K21.9 GASTRO-ESOPHAGEAL REFLUX DISEASE WITHOUT 04/12/2019 JAMES TORRES MD Ot K31.8 19 ANGIODYSPLASIA OF STOMACH AND DUODENUM W 04/12/2019 JAMES TORRES MD Ot K74.6 0 UNSPECIFIED CIRRHOSIS OF LIVER 04/12/2019 JAMES TORRES MD, Ot M19.9 0 UNSPECIFIED OSTEOARTHRITIS, UNSPECIFIED 04/12/2019 JAMES TORRES MD Ot M54.9 DORSALGIA, UNSPECIFIED 04/12/2019 JAMES TORRES MD Ot N18.9 CHRONIC KIDNEY DISEASE, UNSPECIFIED 04/12/2019 JAMES TORRES MD Ot N30.0 1 ACUTE CYSTITIS WITH HEMATURIA 04/12/2019 JAMES TORRES MD, Ot Z79.4 POOL LIFEGUARD (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 OF INSULIN 04/12/2019 JAMES TORRES MD, Ot Z80.3 FAMILY HISTORY OF MALIGNANT NEOPLASM OF 04/12/2019 JAMES TORRES MD, Ot Z82.4 9 FAMILY HX OF ISCHEM HEART DIS AND OTH DI 04/12/2019 JAMES TORRES MD, Ot Z86.7 9 PERSONAL HISTORY OF OTHER DISEASES OF TH 04/12/2019 JAMES TORRES MD, Ot Z87.8 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 04/12/2019 JAMES TORRES MD, Ot Z88.1 ALLERGY STATUS TO OTHER ANTIBIOTIC AGENT 04/12/2019 JAMES TORRES MD, Ot Z88.2 ALLERGY STATUS TO SULFONAMIDES STATUS 04/12/2019 JAMES TORRES MD, Ot Z88.8 ALLERGY STATUS TO OT DRUG/MEDS/BIOL SUB 04/24/2019 KRUNAL KHOURY PHD, LULA Clement Ot D50.0 IRON DEFICIENCY ANEMIA SECONDARY TO BLOO 04/24/2019 KRUNAL KHOURY PHD, LULA Clement Ot E03.9 HYPOTHYROIDISM, UNSPECIFIED 04/24/2019 KRUNAL KHOURY PHD, LULA Clement Ot 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3 CHRONIC KIDNEY DISEASE, STAGE 3 (MODERAT 04/24/2019 KRUNAL KHOURY PHD, LULA Clement Ot Z79.899 OTHER JAIL (CURRENT) DRUG THERAPY 04/25/2019 SHIREEN AGARWAL Ot D50.9 IRON DEFICIENCY ANEMIA, UNSPECIFIED 04/25/2019 SHIREEN AGARWAL Ot D63.1 ANEMIA IN CHRONIC KIDNEY DISEASE 04/25/2019 SHIREEN AGARWAL Ot E03.9 HYPOTHYROIDISM, UNSPECIFIED 04/25/2019 SHIREEN AGARWAL Ot 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 04/25/2019 SHIREEN AGARWAL Ot E53.8 DEFICIENCY OF OTHER SPECIFIED B GROUP 04/25/2019 SHIREEN AGARWAL Ot E66.9 OBESITY, UNSPECIFIED 04/25/2019 SHIREEN AGARWAL Ot E78.5 HYPERLIPIDEMIA, UNSPECIFIED 04/25/2019 SHIREEN AGARWAL Ot 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 04/25/2019 SHIREEN AGARWAL Ot I25.10 ATHSCL HEART DISEASE OF [place] CORONARY 04/25/2019 SHIREEN AGARWAL Ot I47.1 SUPRAVENTRICULAR TACHYCARDIA 04/25/2019 SHIREEN AGARWAL Ot I48.91 UNSPECIFIED ATRIAL FIBRILLATION 04/25/2019 SHIREEN AGARWAL Ot I50.30 UNSPECIFIED DIASTOLIC (CONGESTIVE) HEART 04/25/2019 SHIREEN AGARWAL Ot K29.51 UNSPECIFIED CHRONIC GASTRITIS WITH BLEED 04/25/2019 SHIREEN AGARWAL Ot K31.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 04/25/2019 SHIREEN AGARWAL Ot K44.9 DIAPHRAGMATIC HERNIA WITHOUT OBSTRUCTION 04/25/2019 SHIREEN AGARWAL Ot K63.5 POLYP OF COLON 04/25/2019 SHIREEN AGARWAL Ot K64.9 UNSPECIFIED HEMORRHOIDS 04/25/2019 SHIRENE AGARWAL Ot K74.60 UNSPECIFIED CIRRHOSIS OF LIVER 04/25/2019 SHIREEN AGARWAL Ot M19.90 UNSPECIFIED OSTEOARTHRITIS, UNSPECIFIED 04/25/2019 SHIREEN AGARWAL Ot N18.3 CHRONIC KIDNEY DISEASE, STAGE 3 (MODERAT 04/25/2019 SHIREEN AGARWAL Ot Z79.899 OTHER JAIL (CURRENT) DRUG THERAPY 04/25/2019 SHIREEN AGARWAL Ot Z80.0 FAMILY HISTORY OF MALIGNANT NEOPLASM OF 05/02/2019 MACIEL WELCH APRN Ot M79.89 OTHER SPECIFIED SOFT TISSUE DISORDERS 05/02/2019 SHIREEN AGARWAL Ot D64.9 ANEMIA, UNSPECIFIED 05/02/2019 SHIREEN AGARWAL N Ot E11.9 TYPE 2 DIABETES MELLITUS WITHOUT COMPLIC 05/02/2019 SHIREEN AGARWAL N Ot K74.60 UNSPECIFIED CIRRHOSIS OF LIVER 05/02/2019 SHIREEN AGARWAL Ot N18.9 CHRONIC KIDNEY DISEASE, UNSPECIFIED 05/02/2019 BRIAN KHOURY, JAMES R Ot D64.9 ANEMIA, UNSPECIFIED 05/02/2019 BRIAN KHOURY, JAMES R Ot E11.2 2 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 05/02/2019 BRIAN KHOURY, JAMES R Ot K74.6 0 UNSPECIFIED CIRRHOSIS OF LIVER 05/02/2019 BRIAN KHOURY, JAMES R Ot N18.9 CHRONIC KIDNEY DISEASE, UNSPECIFIED 05/02/2019 BRIAN KHOURY, JAMES R Ot E03.9 HYPOTHYROIDISM, UNSPECIFIED 05/02/2019 KRUNAL KHOURY PHD, LULA S Ot I50.32 CHRONIC DIASTOLIC (CONGESTIVE) HEART KATY 05/02/2019 KRUNAL KHOURY PHD, LULA Clement Ot E03.9 HYPOTHYROIDISM, UNSPECIFIED 05/02/2019 KRUNAL KHOURY PHD, LULA Clement Ot I50.32 CHRONIC DIASTOLIC (CONGESTIVE) HEART KATY 05/02/2019 KRUNAL KHOURY PHD, LULA Clement Ot I50.32 CHRONIC DIASTOLIC (CONGESTIVE) HEART KATY 05/02/2019 KRUNAL KHOURY PHD, LULA Clement Ot K31.819 ANGIODYSPLASIA OF STOMACH AND DUODENUM W 05/02/2019 SHIREEN AGARWAL Ot D50.9 IRON DEFICIENCY ANEMIA, UNSPECIFIED 05/02/2019 SHIREEN AGARWAL Ot D63.1 ANEMIA IN CHRONIC KIDNEY DISEASE 05/02/2019 SHIREEN AGARWAL Ot E03.9 HYPOTHYROIDISM, UNSPECIFIED 05/02/2019 SHIREEN AGARWAL N Ot 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 05/02/2019 SHIREEN AGARWAL Ot E53.8 DEFICIENCY OF OTHER SPECIFIED B GROUP 05/02/2019 SHIREEN AGARWAL N Ot E66.9 OBESITY, UNSPECIFIED 05/02/2019 SHIREEN AGARWAL N Ot E78.5 HYPERLIPIDEMIA, UNSPECIFIED 05/02/2019 SHIREEN AGARWAL Ot 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 05/02/2019 ANY JJBLU Solange Ot I25.10 ATHSCL HEART DISEASE OF [place] CORONARY 05/02/2019 ANYSHIREEN Ot I47.1 SUPRAVENTRICULAR TACHYCARDIA 05/02/2019 ANYSHIREEN Ot I48.91 UNSPECIFIED ATRIAL FIBRILLATION 05/02/2019 ANYSHIREEN Ot I50.30 UNSPECIFIED DIASTOLIC (CONGESTIVE) HEART 05/02/2019 ANYSHIREEN Ot K29.51 UNSPECIFIED CHRONIC GASTRITIS WITH BLEED 05/02/2019 ANYSHIREEN Ot K31.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 05/02/2019 ANYSHIREEN Ot K44.9 DIAPHRAGMATIC HERNIA WITHOUT OBSTRUCTION 05/02/2019 ANYSHIREEN Ot K63.5 POLYP OF COLON 05/02/2019 ANYSHIREEN Ot K64.9 UNSPECIFIED HEMORRHOIDS 05/02/2019 ANYSHIREEN Ot K74.60 UNSPECIFIED CIRRHOSIS OF LIVER 05/02/2019 ANYSHIREEN Ot M19.90 UNSPECIFIED OSTEOARTHRITIS, UNSPECIFIED 05/02/2019 ANYSHIREEN Ot N18.3 CHRONIC KIDNEY DISEASE, STAGE 3 (MODERAT 05/02/2019 ANYSHIREEN Ot Z68.33 BODY MASS INDEX (BMI) 33.0-33.9, ADULT 05/02/2019 ANYSHIREEN Ot Z79.899 OTHER POOL LIFEGUARD (CURRENT) DRUG THERAPY 05/02/2019 ANYSHIREEN Ot Z80.0 FAMILY HISTORY OF MALIGNANT NEOPLASM OF 05/02/2019 KRUNAL KHOURY PHD, LULA Clement Ot D50.0 IRON DEFICIENCY ANEMIA SECONDARY TO BLOO 05/02/2019 KRUNAL KHOURY PHD, LULA Clement Ot E03.9 HYPOTHYROIDISM, UNSPECIFIED 05/02/2019 KRUNAL KHOURY PHD, LULA Clement Ot 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 05/02/2019 KRUNAL KHOURY PHD, LULA Clement Ot E53.8 DEFICIENCY OF OTHER SPECIFIED B GROUP 05/02/2019 KRUNAL KHOURY PHD, LULA Clement Ot I12.9 HYPERTENSIVE CHRONIC KIDNEY DISEASE W ST 05/02/2019 KRUNAL KHOURY PHD, LULA Clement Ot I25.10 ATHSCL HEART DISEASE OF [place] CORONARY 05/02/2019 KRUNAL KHOURY PHD, LULA Clement Ot I48.91 UNSPECIFIED ATRIAL FIBRILLATION 05/02/2019 KRUNAL KHOURY PHD, LULA Clement Ot K31.819 ANGIODYSPLASIA OF STOMACH AND DUODENUM W 05/02/2019 KRUNAL KHOURY PHD, LULA Clement Ot K74.60 UNSPECIFIED CIRRHOSIS OF LIVER 05/02/2019 KRUNAL KHOURY PHD, LULA Clement Ot N18.3 CHRONIC KIDNEY DISEASE, STAGE 3 (MODERAT 05/02/2019 KRUNAL KHOURY PHD, LULA Clement Ot Z79.899 OTHER POOL LIFEGUARD (CURRENT) DRUG THERAPY 05/07/2019 MALLORIE FATIMA APRN Ot D64 .9 ANEMIA, UNSPECIFIED 05/07/2019 MALLORIE FATIMA APRN Ot 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 05/07/2019 MALLORIE FATIMA APRN Ot E78.00 PURE HYPERCHOLESTEROLEMIA, UNSPECIFIED 05/07/2019 MALLORIE FATIMA APRN Ot F41 .9 ANXIETY DISORDER, UNSPECIFIED 05/07/2019 MALLORIE FATIMA APRN Ot I12 .9 HYPERTENSIVE CHRONIC KIDNEY DISEASE W ST 05/07/2019 MALLORIE FATIMA APRN Ot I25.10 ATHSCL HEART DISEASE OF [place] CORONARY 05/07/2019 MALLORIE FATIMA APRN Ot I25 .2 OLD MYOCARDIAL INFARCTION 05/07/2019 MALLORIE FATIMA APRN Ot I48.91 UNSPECIFIED ATRIAL FIBRILLATION 05/07/2019 MALLORIE FATIMA APRN Ot K21 .9 GASTRO-ESOPHAGEAL REFLUX DISEASE WITHOUT 05/07/2019 MALLORIE FATIMA APRN Ot N18 .9 CHRONIC KIDNEY DISEASE, UNSPECIFIED 05/07/2019 MALLORIE FATIMA APRN Ot N39 .0 URINARY TRACT INFECTION, SITE NOT SPECIF 05/07/2019 MALLORIE FATIMA APRN Ot R35 .0 FREQUENCY OF MICTURITION 05/07/2019 MALLORIE FATIMA APRN Ot Z79 .4 JAIL (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 OF INSULIN 05/07/2019 MALLORIE FATIMA APRN Ot Z80 .8 FAMILY HISTORY OF MALIGNANT NEOPLASM OF 05/07/2019 MALLORIE FATIMA APRN Ot Z82.49 FAMILY HX OF ISCHEM HEART DIS AND OTH DI 05/07/2019 MALLORIE FATIMA APRN Ot Z87.8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 05/07/2019 MALLORIE FATIMA APRN Ot Z88 .1 ALLERGY STATUS TO OTHER ANTIBIOTIC AGENT 05/07/2019 MALLORIE FATIMA APRN Ot Z88 .2 ALLERGY STATUS TO SULFONAMIDES STATUS 05/07/2019 MALLORIE FATIMA APRN Ot Z88 .8 ALLERGY STATUS TO OTH DRUG/MEDS/BIOL SUB 05/07/2019 MALLORIE FATIMA APRN Ot Z90.89 ACQUIRED ABSENCE OF OTHER ORGANS 05/07/2019 MALLORIE FATIMA APRN Ot Z95 .1 PRESENCE OF AORTOCORONARY BYPASS GRAFT 05/07/2019 MALLORIE FATIMA APRN Ot Z95 .5 PRESENCE OF CORONARY ANGIOPLASTY IMPLANT 05/07/2019 MALLORIE FATIMA APRN Ot Z98.51 TUBAL LIGATION STATUS 05/11/2019 MALLORIE FATIMA APRN Ot D64 .9 ANEMIA, UNSPECIFIED 05/11/2019 MALLORIE FATIMA APRN Ot 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 05/11/2019 MALLORIE FATIMA APRN Ot E78.00 PURE HYPERCHOLESTEROLEMIA, UNSPECIFIED 05/11/2019 MALLORIE FATIMA APRN Ot F41 .9 ANXIETY DISORDER, UNSPECIFIED 05/11/2019 MALLORIE FATIMA APRN Ot I12 .9 HYPERTENSIVE CHRONIC KIDNEY DISEASE W ST 05/11/2019 MALLORIE FATIMA APRN Ot I25.10 ATHSCL HEART DISEASE OF [place] CORONARY 05/11/2019 MALLORIE FTAIMA APRN Ot I25 .2 OLD MYOCARDIAL INFARCTION 05/11/2019 MALLORIE FATIMA APRN Ot I48.91 UNSPECIFIED ATRIAL FIBRILLATION 05/11/2019 MALLORIE FATIMA APRN Ot K21 .9 GASTRO-ESOPHAGEAL REFLUX DISEASE WITHOUT 05/11/2019 MALLORIE FATIMA APRN Ot N18 .9 CHRONIC KIDNEY DISEASE, UNSPECIFIED 05/11/2019 MALLORIE FATIMA APRN Ot N39 .0 URINARY TRACT INFECTION, SITE NOT SPECIF 05/11/2019 MALLORIE FATIMA APRN Ot R35 .0 FREQUENCY OF MICTURITION 05/11/2019 MALLORIE FATIMA APRN Ot Z79 .4 POOL LIFEGUARD (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 OF INSULIN 05/11/2019 MALLORIE FATIMA APRN Ot Z80 .8 FAMILY HISTORY OF MALIGNANT NEOPLASM OF 05/11/2019 MALLORIE FATIMA APRN Ot Z82.49 FAMILY HX OF ISCHEM HEART DIS AND OTH DI 05/11/2019 MALLORIE FATIMA APRN Ot Z87.8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 05/11/2019 MALLORIE FATIMA APRN Ot Z88 .1 ALLERGY STATUS TO OTHER ANTIBIOTIC AGENT 05/11/2019 MALLORIE FATIMA APRN Ot Z88 .2 ALLERGY STATUS TO SULFONAMIDES STATUS 05/11/2019 MALLORIE FATIMA APRN Ot Z88 .8 ALLERGY STATUS TO OTH DRUG/MEDS/BIOL SUB 05/11/2019 MALLORIE FATIMA APRN Ot Z90.89 ACQUIRED ABSENCE OF OTHER ORGANS 05/11/2019 MALLORIE FATIMA APRN Ot Z95 .1 PRESENCE OF AORTOCORONARY BYPASS GRAFT 05/11/2019 MALLORIE FATIMA APRN Ot Z95 .5 PRESENCE OF CORONARY ANGIOPLASTY IMPLANT 05/11/2019 MALLORIE FATIMA APRN Ot Z98.51 TUBAL LIGATION STATUS 05/16/2019 MARY ANN CRUZ SALES AGENT TRADING STAMPS Ot E03.9 HYPOTHYROIDISM, UNSPECIFIED 05/20/2019 KRUNAL KHOURY PHD, LULA Clement Ot I50.32 CHRONIC DIASTOLIC (CONGESTIVE) HEART KATY 05/30/2019 SHIREEN AGARWAL Ot D50.9 IRON DEFICIENCY ANEMIA, UNSPECIFIED 05/30/2019 SHIREEN AGARWAL Ot D63.1 ANEMIA IN CHRONIC KIDNEY DISEASE 05/30/2019 SHIREEN AGARWAL Ot E03.9 HYPOTHYROIDISM, UNSPECIFIED 05/30/2019 SHIREEN AGARWAL Ot 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 05/30/2019 SHIREEN AGARWAL Ot E53.8 DEFICIENCY OF OTHER SPECIFIED B GROUP 05/30/2019 SHIREEN AGARWAL Ot E66.9 OBESITY, UNSPECIFIED 05/30/2019 SHIREEN AGRAWAL Ot E78.5 HYPERLIPIDEMIA, UNSPECIFIED 05/30/2019 SHRIEEN AGARWAL Ot 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 05/30/2019 SHIREEN AGARWAL Ot I25.10 ATHSCL HEART DISEASE OF [place] CORONARY 05/30/2019 SHIREEN AGARWAL Ot I47.1 SUPRAVENTRICULAR TACHYCARDIA 05/30/2019 SHIREEN AGARWAL Ot I48.91 UNSPECIFIED ATRIAL FIBRILLATION 05/30/2019 SHIREEN AGARWAL Ot I50.30 UNSPECIFIED DIASTOLIC (CONGESTIVE) HEART 05/30/2019 SHIREEN AGARWAL Solange Ot K29.51 UNSPECIFIED CHRONIC GASTRITIS WITH BLEED 05/30/2019 SHIREEN AGARWAL Solange Ot K31.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 05/30/2019 SHIREEN AGARWAL Solange Ot K44.9 DIAPHRAGMATIC HERNIA WITHOUT OBSTRUCTION 05/30/2019 SHIREEN AGARWAL Solange Ot K63.5 POLYP OF COLON 05/30/2019 ANY JJBLU Solange Ot K64.9 UNSPECIFIED HEMORRHOIDS 05/30/2019 SHIREEN AGARWAL Solange Ot K74.60 UNSPECIFIED CIRRHOSIS OF LIVER 05/30/2019 SHIREEN AGARWAL Solange Ot M19.90 UNSPECIFIED OSTEOARTHRITIS, UNSPECIFIED 05/30/2019 SHIREEN AGARWAL Solange Ot N18.3 CHRONIC KIDNEY DISEASE, STAGE 3 (MODERAT 05/30/2019 SHIREEN AGARWAL Solange Ot Z68.33 BODY MASS INDEX (BMI) 33.0-33.9, ADULT 05/30/2019 SHIREEN AGARWAL Solange Ot Z79.899 OTHER JAIL (CURRENT) DRUG THERAPY 05/30/2019 SHIREEN AGARWAL Ot Z80.0 FAMILY HISTORY OF MALIGNANT NEOPLASM OF 06/01/2019 RACHELE JEFFERSON PROP ATTENDANT Ot J98.11 ATELECTASIS 06/01/2019 RACHELE JEFFERSON PROP ATTENDANT Ot J98.4 OTHER DISORDERS OF LUNG 06/01/2019 RACHELE JEFFERSON PROP ATTENDANT Ot Z95.9 PRESENCE OF CARDIAC AND VASCULAR IMPLANT 06/06/2019 TOMASA CARMONA MD Ot D61 .9 APLASTIC ANEMIA, UNSPECIFIED 06/06/2019 TOMASA CARMONA MD Ot E03 .9 HYPOTHYROIDISM, UNSPECIFIED 06/06/2019 TOMASA CARMONA MD Ot E11 .9 TYPE 2 DIABETES MELLITUS WITHOUT COMPLIC 06/06/2019 TOMASA CARMONA MD Ot E78.00 PURE HYPERCHOLESTEROLEMIA, UNSPECIFIED 06/06/2019 TOMASA CARMONA MD Ot F41 .9 ANXIETY DISORDER, UNSPECIFIED 06/06/2019 TOMASA CARMONA MD Ot G47.30 SLEEP APNEA, UNSPECIFIED 06/06/2019 TOMASA CARMONA MD Ot G89.29 OTHER CHRONIC PAIN 06/06/2019 TOMASA CARMONA MD, Ot 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 06/06/2019 TOMASA CARMONA MD, Ot I25.10 ATHSCL HEART DISEASE OF [place] CORONARY 06/06/2019 TOMASA CARMONA MD, Ot I25 .2 OLD MYOCARDIAL INFARCTION 06/06/2019 TOMASA CARMONA MD, Ot I48 .0 PAROXYSMAL ATRIAL FIBRILLATION 06/06/2019 TOMASA CARMONA MD, Ot I50 .9 HEART FAILURE, UNSPECIFIED 06/06/2019 TOMASA CARMONA MD, Ot K21 .9 GASTRO-ESOPHAGEAL REFLUX DISEASE WITHOUT 06/06/2019 TOMASA CARMONA MD, Ot L40 .9 PSORIASIS, UNSPECIFIED 06/06/2019 TOMASA CARMONA MD, Ot M19.90 UNSPECIFIED OSTEOARTHRITIS, UNSPECIFIED 06/06/2019 TOMASA CARMONA MD, Ot M54 .9 DORSALGIA, UNSPECIFIED 06/06/2019 TOMASA CARMONA MD, Ot N18 .9 CHRONIC KIDNEY DISEASE, UNSPECIFIED 06/06/2019 TOMASA CARMONA MD, Ot R41 .0 DISORIENTATION, UNSPECIFIED 06/06/2019 TOMASA CARMONA MD, Ot Z79 .4 JAIL (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 OF INSULIN 06/06/2019 TOMASA CARMONA MD, Ot Z87.8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 06/06/2019 TOMASA CARMONA MD Ot Z95 .1 PRESENCE OF AORTOCORONARY BYPASS GRAFT 06/06/2019 TOMASA CARMONA MD Ot Z95 .5 PRESENCE OF CORONARY ANGIOPLASTY IMPLANT 06/06/2019 TOMASA CARMONA MD Ot Z98.51 TUBAL LIGATION STATUS 06/10/2019 KRUNAL KHOURY PHD, LULA Clement Ot I50.32 CHRONIC DIASTOLIC (CONGESTIVE) HEART KATY 06/10/2019 MARY ANN CRUZ APRN Ot E03.9 HYPOTHYROIDISM, UNSPECIFIED 06/21/2019 RACHELE JEFFERSON Ot J98.11 ATELECTASIS 06/21/2019 RACHELE JEFFERSON Ot J98.4 OTHER DISORDERS OF LUNG 06/21/2019 RACHELE JEFFERSON Ot Z95.9 PRESENCE OF CARDIAC AND VASCULAR IMPLANT 06/27/2019 SHIREEN AGARWAL Ot D50.9 IRON DEFICIENCY ANEMIA, UNSPECIFIED 06/27/2019 SHIREEN AGARWAL Ot D63.1 ANEMIA IN CHRONIC KIDNEY DISEASE 06/27/2019 SHIREEN AGARWAL Ot E03.9 HYPOTHYROIDISM, UNSPECIFIED 06/27/2019 SHIREEN AGARWAL Ot 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 06/27/2019 SHIREEN AGARWAL Ot E53.8 DEFICIENCY OF OTHER SPECIFIED B GROUP 06/27/2019 SHIREEN AGARWAL Ot E66.9 OBESITY, UNSPECIFIED 06/27/2019 SHIREEN AGARWAL Ot E78.5 HYPERLIPIDEMIA, UNSPECIFIED 06/27/2019 SHIREEN AGARWAL Ot 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 06/27/2019 SHIREEN AGARWAL Ot I25.10 ATHSCL HEART DISEASE OF [place] CORONARY 06/27/2019 SHIREEN AGARWAL Ot I47.1 SUPRAVENTRICULAR TACHYCARDIA 06/27/2019 SHIREEN AGARWAL Ot I48.91 UNSPECIFIED ATRIAL FIBRILLATION 06/27/2019 SHIREEN AGARWAL Ot I50.30 UNSPECIFIED DIASTOLIC (CONGESTIVE) HEART 06/27/2019 SHIREEN AGARWAL Ot K29.51 UNSPECIFIED CHRONIC GASTRITIS WITH BLEED 06/27/2019 SHIREEN AGARWAL Ot K31.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 06/27/2019 SHIREEN AGARWAL Ot K44.9 DIAPHRAGMATIC HERNIA WITHOUT OBSTRUCTION 06/27/2019 SHIREEN AGARWAL Ot K63.5 POLYP OF COLON 06/27/2019 SHIREEN AGARWAL Ot K64.9 UNSPECIFIED HEMORRHOIDS 06/27/2019 SHIREEN AGARWAL Ot K74.60 UNSPECIFIED CIRRHOSIS OF LIVER 06/27/2019 SHIREEN AGARWAL Ot M19.90 UNSPECIFIED OSTEOARTHRITIS, UNSPECIFIED 06/27/2019 SHIREEN AGARWAL Ot N18.3 CHRONIC KIDNEY DISEASE, STAGE 3 (MODERAT 06/27/2019 SHIREEN AGARWAL Ot Z68.33 BODY MASS INDEX (BMI) 33.0-33.9, ADULT 06/27/2019 SHIREEN AGARWAL Ot Z79.899 OTHER POOL LIFEGUARD (CURRENT) DRUG THERAPY 06/27/2019 SHIREEN AGARWAL Ot Z80.0 FAMILY HISTORY OF MALIGNANT NEOPLASM OF 07/11/2019 SHIREEN AGARWAL Ot D50.9 IRON DEFICIENCY ANEMIA, UNSPECIFIED 07/11/2019 SHIREEN AGARWAL Ot D63.1 ANEMIA IN CHRONIC KIDNEY DISEASE 07/11/2019 SHIREEN AGARWAL Ot E03.9 HYPOTHYROIDISM, UNSPECIFIED 07/11/2019 SHIREEN AGARWAL Ot 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 07/11/2019 SHIREEN AGARWAL Ot E53.8 DEFICIENCY OF OTHER SPECIFIED B GROUP 07/11/2019 SHIREEN AGARWAL Ot E66.9 OBESITY, UNSPECIFIED 07/11/2019 SHIREEN AGARWAL Ot E78.5 HYPERLIPIDEMIA, UNSPECIFIED 07/11/2019 SHIREEN AGARWAL Ot 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 07/11/2019 SHIREEN AGARWAL Ot I25.10 ATHSCL HEART DISEASE OF [place] CORONARY 07/11/2019 SHIREEN AGARWAL Ot I47.1 SUPRAVENTRICULAR TACHYCARDIA 07/11/2019 SHIREEN AGARWAL Ot I48.91 UNSPECIFIED ATRIAL FIBRILLATION 07/11/2019 SHIREEN AGARWAL Ot I50.30 UNSPECIFIED DIASTOLIC (CONGESTIVE) HEART 07/11/2019 SHIREEN AGARWAL Ot K29.51 UNSPECIFIED CHRONIC GASTRITIS WITH BLEED 07/11/2019 SHIREEN AGARWAL Ot K31.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 07/11/2019 SHIREEN AGARWAL Ot K44.9 DIAPHRAGMATIC HERNIA WITHOUT OBSTRUCTION 07/11/2019 SHIREEN AGARWAL Ot K63.5 POLYP OF COLON 07/11/2019 SHIREEN AGARWAL Ot K64.9 UNSPECIFIED HEMORRHOIDS 07/11/2019 SHIREEN AGARWAL Ot K74.60 UNSPECIFIED CIRRHOSIS OF LIVER 07/11/2019 SHIREEN AGARWAL Ot M19.90 UNSPECIFIED OSTEOARTHRITIS, UNSPECIFIED 07/11/2019 SHIREEN AGARWAL Ot N18.3 CHRONIC KIDNEY DISEASE, STAGE 3 (MODERAT 07/11/2019 SHIREEN AGARWAL Ot Z68.33 BODY MASS INDEX (BMI) 33.0-33.9, ADULT 07/11/2019 SHIREEN AGARWAL Ot Z79.899 OTHER POOL LIFEGUARD (CURRENT) DRUG THERAPY 07/11/2019 SHIREEN AGARWAL Ot Z80.0 FAMILY HISTORY OF MALIGNANT NEOPLASM OF 07/11/2019 SHIREEN AGARWAL Ot D50.9 IRON DEFICIENCY ANEMIA, UNSPECIFIED 07/11/2019 SHIREEN AGARWAL Ot D63.1 ANEMIA IN CHRONIC KIDNEY DISEASE 07/11/2019 SHIREEN AGARWAL Ot E03.9 HYPOTHYROIDISM, UNSPECIFIED 07/11/2019 SHIREEN AGARWAL Ot 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 07/11/2019 SHIREEN AGARWAL Ot E53.8 DEFICIENCY OF OTHER SPECIFIED B GROUP 07/11/2019 SHIREEN AGARWAL Ot E66.9 OBESITY, UNSPECIFIED 07/11/2019 SHIREEN AGARWAL Ot E78.5 HYPERLIPIDEMIA, UNSPECIFIED 07/11/2019 SHIREEN AGARWAL Ot 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 07/11/2019 SHIREEN AGARWAL Ot I25.10 ATHSCL HEART DISEASE OF [place] CORONARY 07/11/2019 SHIREEN AGARWAL Ot I47.1 SUPRAVENTRICULAR TACHYCARDIA 07/11/2019 SHIREEN AGARWAL Ot I48.91 UNSPECIFIED ATRIAL FIBRILLATION 07/11/2019 SHIREEN AGARWAL Ot I50.30 UNSPECIFIED DIASTOLIC (CONGESTIVE) HEART 07/11/2019 SHIREEN AGARWAL Ot K29.51 UNSPECIFIED CHRONIC GASTRITIS WITH BLEED 07/11/2019 SHIREEN AGARWAL Ot K31.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 07/11/2019 SHIREEN AGARWAL Ot K44.9 DIAPHRAGMATIC HERNIA WITHOUT OBSTRUCTION 07/11/2019 SHIREEN AGARWAL Ot K63.5 POLYP OF COLON 07/11/2019 SHIREEN AGARWAL Ot K64.9 UNSPECIFIED HEMORRHOIDS 07/11/2019 SHIREEN AGARWAL Ot K74.60 UNSPECIFIED CIRRHOSIS OF LIVER 07/11/2019 SHIREEN AGARWAL Ot M19.90 UNSPECIFIED OSTEOARTHRITIS, UNSPECIFIED 07/11/2019 SHIREEN AGARWAL Ot N18.3 CHRONIC KIDNEY DISEASE, STAGE 3 (MODERAT 07/11/2019 SHIREEN AGARWAL Ot Z68.33 BODY MASS INDEX (BMI) 33.0-33.9, ADULT 07/11/2019 SHIREEN AGARWAL Ot Z79.899 OTHER JAIL (CURRENT) DRUG THERAPY 07/11/2019 SHIREEN AGARWAL Ot Z80.0 FAMILY HISTORY OF MALIGNANT NEOPLASM OF 07/17/2019 SHIREEN AGARWAL Ot D50.9 IRON DEFICIENCY ANEMIA, UNSPECIFIED 07/17/2019 SHIREEN AGARWAL Ot D63.1 ANEMIA IN CHRONIC KIDNEY DISEASE 07/17/2019 SHIREEN AGARWAL Ot E03.9 HYPOTHYROIDISM, UNSPECIFIED 07/17/2019 SHIREEN AGARWAL Ot 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 07/17/2019 SHIREEN AGARWAL Ot E53.8 DEFICIENCY OF OTHER SPECIFIED B GROUP 07/17/2019 SHIREEN AGARWAL Ot E66.9 OBESITY, UNSPECIFIED 07/17/2019 SHIREEN AGARWAL Ot E78.5 HYPERLIPIDEMIA, UNSPECIFIED 07/17/2019 SHIREEN AGARWAL Ot 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 07/17/2019 SHIREEN AGARWAL Ot I25.10 ATHSCL HEART DISEASE OF [place] CORONARY 07/17/2019 SHIREEN AGARWAL Ot I47.1 SUPRAVENTRICULAR TACHYCARDIA 07/17/2019 SHIREEN AGARWAL Ot I48.91 UNSPECIFIED ATRIAL FIBRILLATION 07/17/2019 SHIREEN AGARWAL Ot I50.30 UNSPECIFIED DIASTOLIC (CONGESTIVE) HEART 07/17/2019 SHIREEN AGARWAL Ot K29.51 UNSPECIFIED CHRONIC GASTRITIS WITH BLEED 07/17/2019 SHIREEN AGARWAL Ot K31.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 07/17/2019 SHIREEN AGARWAL Ot K44.9 DIAPHRAGMATIC HERNIA WITHOUT OBSTRUCTION 07/17/2019 SHIREEN AGARWAL Ot K63.5 POLYP OF COLON 07/17/2019 SHIREEN AGARWAL Ot K64.9 UNSPECIFIED HEMORRHOIDS 07/17/2019 SHIREEN AGARWAL Ot K74.60 UNSPECIFIED CIRRHOSIS OF LIVER 07/17/2019 SHIREEN AGARWAL Ot M19.90 UNSPECIFIED OSTEOARTHRITIS, UNSPECIFIED 07/17/2019 SHIREEN AGARWAL Ot N18.3 CHRONIC KIDNEY DISEASE, STAGE 3 (MODERAT 07/17/2019 SHIREEN AGARWAL Ot Z68.33 BODY MASS INDEX (BMI) 33.0-33.9, ADULT 07/17/2019 SHIREEN AGARWAL Solange Ot Z79.899 OTHER POOL LIFEGUARD (CURRENT) DRUG THERAPY 07/17/2019 SHIREEN AGARWAL Solange Ot Z80.0 FAMILY HISTORY OF MALIGNANT NEOPLASM OF 07/19/2019 JAMES TORRES MD Ot Z12.3 1 ENCNTR SCREEN MAMMOGRAM FOR MALIGNANT NE 07/28/2019 GARCIA DO, MICHELLE Ot D50.0 IRON DEFICIENCY ANEMIA SECONDARY TO BLOO 07/28/2019 GARCIA DO, MICHELLE Ot E03.9 HYPOTHYROIDISM, UNSPECIFIED 07/28/2019 GARCIA DO, MICHELLE Ot E11.65 TYPE 2 DIABETES MELLITUS WITH HYPERGLYCE 07/28/2019 GARCIA DO, MICHELLE Ot E78.00 PURE HYPERCHOLESTEROLEMIA, UNSPECIFIED 07/28/2019 GARCIA DO, MICHELLE Ot E87.6 HYPOKALEMIA 07/28/2019 GARCIA DO, MICHELLE Ot F41.9 ANXIETY DISORDER, UNSPECIFIED 07/28/2019 GARCIA DO, MICHELLE Ot G47.30 SLEEP APNEA, UNSPECIFIED 07/28/2019 GARCIA DO, MICHELLE Ot I12.9 HYPERTENSIVE CHRONIC KIDNEY DISEASE W ST 07/28/2019 GARCIA DO, MICHELLE Ot I25.10 ATHSCL HEART DISEASE OF [place] CORONARY 07/28/2019 RADHA DO, MICHELLE Ot I25.2 OLD MYOCARDIAL INFARCTION 07/28/2019 GARCIA DO, MICHELLE Ot I48.0 PAROXYSMAL ATRIAL FIBRILLATION 07/28/2019 GARCIA DO, MICHELLE Ot J18.9 PNEUMONIA, UNSPECIFIED ORGANISM 07/28/2019 GARCIA DO, MICHELLE Ot J30.2 OTHER SEASONAL ALLERGIC RHINITIS 07/28/2019 GARCIA DO, MICHELLE Ot J98.11 ATELECTASIS 07/28/2019 GARCIA DO, MICHELLE Ot J98.4 OTHER DISORDERS OF LUNG 07/28/2019 RADHA DO, MICHELLE Ot K21.9 GASTRO-ESOPHAGEAL REFLUX DISEASE WITHOUT 07/28/2019 RADHA DO, MICHELLE Ot K31.81 1 ANGIODYSPLASIA OF STOMACH AND DUODENUM W 07/28/2019 RADHA DO, MICHELLE Ot K74.60 UNSPECIFIED CIRRHOSIS OF LIVER 07/28/2019 RADHA DO, MICHELLE Ot K76.6 PORTAL HYPERTENSION 07/28/2019 GARCIA DO, MICHELLE Ot M19.91 PRIMARY OSTEOARTHRITIS, UNSPECIFIED SITE 07/28/2019 GARCIA DO, MICHELLE Ot M54.9 DORSALGIA, UNSPECIFIED 07/28/2019 GARCIA DO, MICHELLE Ot N17.9 ACUTE KIDNEY FAILURE, UNSPECIFIED 07/28/2019 GARCIA DO, MICHELLE Ot N18.9 CHRONIC KIDNEY DISEASE, UNSPECIFIED 07/28/2019 GARCIA DO, MICHELLE Ot R07.9 CHEST PAIN, UNSPECIFIED 07/28/2019 GARCIA DO, MICHELLE Ot R57.1 HYPOVOLEMIC SHOCK 07/28/2019 GARCIA DO, MICHELLE Ot Z79.4 JAIL (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 OF INSULIN 07/28/2019 GARCIA DO MICHELLE Ot Z87.89 1 PERSONAL HISTORY OF NICOTINE DEPENDENCE 07/28/2019 GARCIA DO MICHELLE Ot Z95.1 PRESENCE OF AORTOCORONARY BYPASS GRAFT 07/28/2019 RADHA WOOD MICHELLE Ot Z95.5 PRESENCE OF CORONARY ANGIOPLASTY IMPLANT 07/31/2019 KRUNAL KHOURY PHD, LULA Clmeent Ot I50.32 CHRONIC DIASTOLIC (CONGESTIVE) HEART KATY 08/01/2019 KRUNAL KHOURY PHD, LULA Clement Ot I50.32 CHRONIC DIASTOLIC (CONGESTIVE) HEART KATY 08/05/2019 SHIREEN AGARWAL Ot D50.9 IRON DEFICIENCY ANEMIA, UNSPECIFIED 08/05/2019 SHIREEN AGARWAL Ot D63.1 ANEMIA IN CHRONIC KIDNEY DISEASE 08/05/2019 SHIREEN AGARWAL Ot E03.9 HYPOTHYROIDISM, UNSPECIFIED 08/05/2019 SHIREEN AGARWAL Ot 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 08/05/2019 SHIREEN AGARWAL Ot E53.8 DEFICIENCY OF OTHER SPECIFIED B GROUP 08/05/2019 SHIREEN AGARWAL Ot E66.9 OBESITY, UNSPECIFIED 08/05/2019 SHIREEN AGARWAL Ot E78.5 HYPERLIPIDEMIA, UNSPECIFIED 08/05/2019 SHIREEN AGARWAL Ot 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 08/05/2019 SHIREEN AGARWAL Ot I25.10 ATHSCL HEART DISEASE OF [place] CORONARY 08/05/2019 SHIREEN AGARWAL Ot I47.1 SUPRAVENTRICULAR TACHYCARDIA 08/05/2019 SHIREEN AGARWAL Ot I48.91 UNSPECIFIED ATRIAL FIBRILLATION 08/05/2019 SHIREEN AGARWAL Ot I50.30 UNSPECIFIED DIASTOLIC (CONGESTIVE) HEART 08/05/2019 SHIREEN AGARWAL Ot K29.51 UNSPECIFIED CHRONIC GASTRITIS WITH BLEED 08/05/2019 SHIREEN AGARWAL Ot K31.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 08/05/2019 SHIREEN AGARWAL Solange Ot K44.9 DIAPHRAGMATIC HERNIA WITHOUT OBSTRUCTION 08/05/2019 SHIREEN AGARWAL Solange Ot K63.5 POLYP OF COLON 08/05/2019 SHIREEN AGARWAL Solange Ot K64.9 UNSPECIFIED HEMORRHOIDS 08/05/2019 SHIREEN AGARWAL Solange Ot K74.60 UNSPECIFIED CIRRHOSIS OF LIVER 08/05/2019 SHIREEN AGARWAL Solange Ot M19.90 UNSPECIFIED OSTEOARTHRITIS, UNSPECIFIED 08/05/2019 SHIREEN AGARWAL Solange Ot N18.4 CHRONIC KIDNEY DISEASE, STAGE 4 (SEVERE) 08/05/2019 SHIREEN AGARWAL Solange Ot Z68.33 BODY MASS INDEX (BMI) 33.0-33.9, ADULT 08/05/2019 SHIREEN AGARWAL Ot Z79.899 OTHER POOL LIFEGUARD (CURRENT) DRUG THERAPY 08/05/2019 SHIREEN AGARWAL Ot Z80.0 FAMILY HISTORY OF MALIGNANT NEOPLASM OF 08/09/2019 BRIAN KHOURY, JAMES Champion Ot Z12.3 1 ENCNTR SCREEN MAMMOGRAM FOR MALIGNANT NE 09/09/2019 KRUNAL KHOURY PHD, LULA Clement Ot I50.32 CHRONIC DIASTOLIC (CONGESTIVE) HEART KATY 09/17/2019 HARVEY KHOURY, NIA Ot Z53.9 PROCEDURE AND TREATMENT NOT CARRIED OUT, 09/21/2019 RADHA DO, MICHELLE Ot D50.0 IRON DEFICIENCY ANEMIA SECONDARY TO BLOO 09/21/2019 GARCIA DO, MICHELLE Ot E03.9 HYPOTHYROIDISM, UNSPECIFIED 09/21/2019 RADHA DO, MICHELLE Ot E11.65 TYPE 2 DIABETES MELLITUS WITH HYPERGLYCE 09/21/2019 RADHA DO MICHELLE Ot E78.00 PURE HYPERCHOLESTEROLEMIA, UNSPECIFIED 09/21/2019 GARCIA DO, MICHELLE Ot E87.6 HYPOKALEMIA 09/21/2019 RADHA DO MICHELLE Ot F41.9 ANXIETY DISORDER, UNSPECIFIED 09/21/2019 RADHA DO, MICHELLE Ot G47.30 SLEEP APNEA, UNSPECIFIED 09/21/2019 GARCIA DO, MICHELLE Ot I12.9 HYPERTENSIVE CHRONIC KIDNEY DISEASE W ST 09/21/2019 GARCIA DO, MICHELLE Ot I25.10 ATHSCL HEART DISEASE OF [place] CORONARY 09/21/2019 GARCIA DO, MICHELLE Ot I25.2 OLD MYOCARDIAL INFARCTION 09/21/2019GARCIA , MICHELLE Ot I48.0 PAROXYSMAL ATRIAL FIBRILLATION 09/21/2019 GARCIA DO, MICHELLE Ot J18.9 PNEUMONIA, UNSPECIFIED ORGANISM 09/21/2019GARCIA DO, MICHELLE Ot J30.2 OTHER SEASONAL ALLERGIC RHINITIS 09/21/2019GARCIA DO, MICHELLE Ot J98.11 ATELECTASIS 09/21/2019 GARCIA DO, MICHELLE Ot J98.4 OTHER DISORDERS OF LUNG 09/21/2019 GARCIA , MICHELLE Ot K21.9 GASTRO-ESOPHAGEAL REFLUX DISEASE WITHOUT 09/21/2019 GARCIA DO, MICHELLE Ot K31.81 1 ANGIODYSPLASIA OF STOMACH AND DUODENUM W 09/21/2019 GARCIA DO, MICHELLE Ot K74.60 UNSPECIFIED CIRRHOSIS OF LIVER 09/21/2019 GARCIA DO, MICHELLE Ot K76.6 PORTAL HYPERTENSION 09/21/2019 GARCIA , MICHELLE Ot M19.91 PRIMARY OSTEOARTHRITIS, UNSPECIFIED SITE 09/21/2019 RADHA WOOD, MICHELLE Ot M54.9 DORSALGIA, UNSPECIFIED 09/21/2019 GARCIA DO, MICHELLE Ot N17.9 ACUTE KIDNEY FAILURE, UNSPECIFIED 09/21/2019 GARCIA DO, MICHELLE Ot N18.9 CHRONIC KIDNEY DISEASE, UNSPECIFIED 09/21/2019 GARCIA DO MICHELLE Ot R07.9 CHEST PAIN, UNSPECIFIED 09/21/2019 GARCIA DO, MICHELLE Ot R57.1 HYPOVOLEMIC SHOCK 09/21/2019 RADHA WOOD MICHELLE Ot Z79.4 POOL LIFEGUARD (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 OF INSULIN 09/21/2019 RADHA WOOD MICHELLE Ot Z87.89 1 PERSONAL HISTORY OF NICOTINE DEPENDENCE 09/21/2019 RADHA WOOD MICHELLE Ot Z95.1 PRESENCE OF AORTOCORONARY BYPASS GRAFT 09/21/2019 RADHA WOOD MICHELLE Ot Z95.5 PRESENCE OF CORONARY ANGIOPLASTY IMPLANT Procedures Code Description Performed By [place] [facility] PROC FINA ON SINGLE VESSEL 05/21/2010 00.45 INSE RTION OF ONE VASCULAR STENT 05/21/2010 00.66 PERC TRANSLUMINAL CORON ANGIOPLASTY PTCA 05/21/2010 36.07 INSR T OF DRUG-ELUTING CORON ARTERY STENT 05/21/2010 37.22 LEFT HEART CARDIAC CATH 05/21/2010 88.53 LT H EART ANGIOCARDIOGRAM 05/21/2010 88.56 SAE RYAN ARTERIOGR-2 CATH 05/21/2010 [id number] ME ASURE OF CARDIAC SAMPL PRESSURE, L H 01/30/2017 [id number] FL UOROSCOPY OF MULT COR ART USING L OSM 01/30/2017 [id number] FL UOROSCOPY OF LEFT HEART USING LOW OSMO 01/30/2017 [id number] ME ASURE OF CARDIAC SAMPL PRESSURE, L H 02/12/2018 [id number] FL UOROSCOPY OF MULT COR ART USING L OSM 02/12/[id number] GLASGOW OF BILATERAL LUNGS, ENDO, DIAGN 05/30/2018 [id number] EX TRACTION OF RIGHT MAIN BRONCHUS, ENDO, 05/30/2018 [id number] EX TRACTION OF LEFT MAIN BRONCHUS, ENDO, 05/30/2018 [id number] RE SPIRATORY VENTILATION, 24- 96 CONSECUTI 05/30/2018 [id number] IN TRODUCTION OF ANTI- INFLAMMATORY INTO J 06/28/2018 Results Test Result Range Stool occult blood screen - 12/18/16 09: 15 Stool gastrointestinal hemoglobin detection POSITI VE NEGATIVE Stool occult blood screen - 12/18/16 17: 13 Stool gastrointestinal hemoglobin detection POSITI VE NEGATIVE Automated blood complete blood count (he mogram) panel - 12/31/16 11:24 Blood leukocytes automated count (number/volume) 5.7 10*3/uL 4.3-11.0 Blood erythrocytes automated count (number/volume) 2.67 10*6/uL 4.35-5.85 Venous blood hemoglobin measurement (mass/volume) 8.1 g/dL 11.5-16.0 Blood hematocrit (volume fraction) 26 % 35-52 Automated erythrocyte mean corpuscular volume 97 [ foz_us] 80-99 Automated erythrocyte mean corpuscular h emoglobin (mass per erythrocyte) 30 pg 25-34 Automated erythrocyte mean corpuscular h emoglobin concentration measurement (mass/volume) 31 g/dL 32-36 Automated erythrocyte distribution width ratio 16. 0 % 10.0- 14.5 Automated blood platelet count (count/volume) 173 10*3/uL 130-400 Automated blood platelet mean volume measurement 9.3 [foz_us] 7.4-10.4 Capillary blood glucose measurement by g lucometer (mass/volume) - 01/02/17 07:12 Capillary blood glucose measurement by glucometer (mas s/volume) 236 mg/dL 70-110 Complete blood count (CBC) with automate d white blood cell (WBC) differential - 01/29/17 08:52 Blood leukocytes automated count (number/volume) 7.3 10*3/uL 4.3-11.0 Blood erythrocytes automated count (number/volume) 2.59 10*6/uL 4.35-5.85 Venous blood hemoglobin measurement (mass/volume) 7.7 g/dL 11.5-16.0 Blood hematocrit (volume fraction) 25 % 35-52 Automated erythrocyte mean corpuscular volume 96 [ foz_us] 80-99 Automated erythrocyte mean corpuscular h emoglobin (mass per erythrocyte) 30 pg 25-34 Automated erythrocyte mean corpuscular h emoglobin concentration measurement (mass/volume) 31 g/dL 32-36 Automated erythrocyte distribution width ratio 14. 9 % 10.0- 14.5 Automated blood platelet count (count/volume) 162 10*3/uL [...] 10*3 1.0-4.0 Blood monocytes automated count (number/volume) 0. 7 10*3 0.0-1.0 Automated eosinophil count 0.3 10*3/uL 0 .0-0.3 Automated blood basophil count (count/volume) 0.0 10*3/uL 0.0-0.1 Comprehensive metabolic panel - 01/29/17 08:52 Serum or plasma sodium measurement (moles/volume) 136 mmol/L 135-145 Serum or plasma potassium measurement (moles/volume) 4.6 mmol/L 3.6-5.0 Serum or plasma chloride measurement (moles/volume) 101 mmol/L 98-107 Carbon dioxide 22 mmol/L 21-32 Serum or plasma anion gap determination (moles/volume) 13 mmol/L 5-14 Serum or plasma urea nitrogen measurement (mass/volume ) 13 mg/dL 7-18 Serum or plasma creatinine measurement (mass/volume) 1.20 mg/dL 0.60-1.30 Serum or plasma urea nitrogen/creatinine mass ratio 11 NRG Serum or plasma creatinine measurement w ith calculation of estimated glomerular filtration rate 46 NRG Serum or plasma glucose measurement (mass/volume) 450 mg/dL 70-105 Serum or plasma calcium measurement (mass/volume) 9.2 mg/dL 8.5-10.1 Serum or plasma total bilirubin measurement (mass/volu me) 0.6 mg/dL 0.1-1.0 Serum or plasma alkaline phosphatase momo surement (enzymatic activity/volume) 56 U/L 40-136 Serum or plasma aspartate aminotransfera se measurement (enzymatic activity/volume) 42 U/L 5-34 Serum or plasma alanine aminotransferase measurement (enzymatic activity/volume) 21 U/L 0-55 Serum or plasma protein measurement (mass/volume) 6.8 g/dL 6.4-8.2 Serum or plasma albumin measurement (mass/volume) 3.6 g/dL 3.2-4.5 Serum or plasma troponin i.cardiac measu rement (mass/volume) - 01/29/17 08:52 Serum or plasma troponin i.cardiac measurement (mass/v olume) < ng/mL <0.30 THYROID STIMULATING HORMONE - 01/29/17 0 8:52 THYROID STIMULATING HORMONE 6.61 u[iU]/mL 0.35-4.94 Capillary blood glucose measurement by g lucometer (mass/volume) - 01/29/17 11:35 Capillary blood glucose measurement by glucometer (mas s/volume) 444 mg/dL 70-110 RED CELLS LEUKO REDUCED AS1 - 01/29/17 1 3:20 RED CELLS LEUKO REDUCED AS1 T RANSFUSED 01/29/17 2205 NRG Blood type T Indirect antibody screen pa myron - 01/29/17 13:20 ABO+Rh group AP NRG Transfusion band number [id number] NRG Blood group antibody screen POSITIVE NR G Blood group antibodies identified - 01/13 12/29 13:20 Blood group antibodies identified JKA NRG Capillary blood glucose measurement by g lucometer (mass/volume) - 01/29/17 15:07 Capillary blood glucose measurement by glucometer (mas s/volume) 290 mg/dL 70-110 Capillary blood glucose measurement by g lucometer (mass/volume) - 01/29/17 19:08 Capillary blood glucose measurement by glucometer (mas s/volume) 295 mg/dL 70-110 Capillary blood glucose measurement by g lucometer (mass/volume) - 01/29/17 20:39 Capillary blood glucose measurement by glucometer (mas s/volume) 309 mg/dL 70-110 Automated blood complete blood count (he mogram) panel - 01/30/17 03:46 Blood leukocytes automated count (number/volume) 8.5 10*3/uL 4.3-11.0 Blood erythrocytes automated count (number/volume) 3.11 10*6/uL 4.35-5.85 Venous blood hemoglobin measurement (mass/volume) 9.2 g/dL 11.5-16.0 Blood hematocrit (volume fraction) 29 % 35-52 Automated erythrocyte mean corpuscular volume 94 [ foz_us] 80-99 Automated erythrocyte mean corpuscular h emoglobin (mass per erythrocyte) 30 pg 25-34 Automated erythrocyte mean corpuscular h emoglobin concentration measurement (mass/volume) 31 g/dL 32-36 Automated erythrocyte distribution width ratio 16. 8 % 10.0- 14.5 Automated blood platelet count (count/volume) 189 10*3/uL 130-400 Automated blood platelet mean volume measurement 11.0 [foz_us] 7.4-10.4 Automated reticulocyte percentage - 01/13 01/29 03:46 Blood reticulocytes count (number/volume) 179 10*9 /L 24-90 Blood reticulocytes/100 erythrocytes 5.75 % 0.50-2.40 Comprehensive metabolic panel - 01/30/17 03:46 Serum or plasma sodium measurement (moles/volume) 136 mmol/L 135-145 Serum or plasma potassium measurement (moles/volume) 5.0 mmol/L 3.6-5.0 Serum or plasma chloride measurement (moles/volume) 106 mmol/L 98-107 Carbon dioxide 19 mmol/L 21-32 Serum or plasma anion gap determination (moles/volume) 11 mmol/L 5-14 Serum or plasma urea nitrogen measurement (mass/volume ) 15 mg/dL 7-18 Serum or plasma creatinine measurement (mass/volume) 1.28 mg/dL 0.60-1.30 Serum or plasma urea nitrogen/creatinine mass ratio 12 NRG Serum or plasma creatinine measurement w ith calculation of estimated glomerular filtration rate 43 NRG Serum or plasma glucose measurement (mass/volume) 398 mg/dL 70-105 Serum or plasma calcium measurement (mass/volume) 8.3 mg/dL 8.5-10.1 Serum or plasma total bilirubin measurement (mass/volu me) 1.3 mg/dL 0.1-1.0 Serum or plasma alkaline phosphatase momo surement (enzymatic activity/volume) 49 U/L 40-136 Serum or plasma aspartate aminotransfera se measurement (enzymatic activity/volume) 44 U/L 5-34 Serum or plasma alanine aminotransferase measurement (enzymatic activity/volume) 23 U/L 0-55 Serum or plasma protein measurement (mass/volume) 6.8 g/dL 6.4-8.2 Serum or plasma albumin measurement (mass/volume) 3.4 g/dL 3.2-4.5 Serum or plasma lithium measurement (mol es/volume) - 01/30/17 03:46 BNP level 535.3 pg/mL <100.0 Serum or plasma troponin i.cardiac measu rement (mass/volume) - 01/30/17 03:46 Serum or plasma troponin i.cardiac measurement (mass/v olume) 0.81 ng/mL <0.30 THYROID STIMULATING HORMONE - 01/30/17 0 3:46 THYROID STIMULATING HORMONE 4.95 u[iU]/mL 0.35-4.94 Digoxin - 01/30/17 03:46 Digoxin 0.71 ng/mL 0.80-2.00 Hemoglobin A1c - 01/30/17 03:46 Hemoglobin A1c 8.1 % 4.5-6.2 PT panel in platelet poor plasma by coag ulation assay - 01/30/17 09:40 Prothrombin time (PT) in platelet poor plasma by coagu lation assay 14.9 s 12.2-14.7 INR in platelet poor plasma or blood by coagulation as say 1.2 0.8-1.4 Activated partial thromboplastin time (a PTT) in platelet poor plasma bycoagulation assay - 01/30/17 09:40 Activated partial thromboplastin time (a PTT) in platelet poor plasma bycoagulation assay 39 s 24-35 Capillary blood glucose measurement by g lucometer (mass/volume) - 01/30/17 12:07 Capillary blood glucose measurement by glucometer (mas s/volume) 362 mg/dL 70-110 Capillary blood glucose measurement by g lucometer (mass/volume) - 01/30/17 16:30 Capillary blood glucose measurement by glucometer (mas s/volume) 348 mg/dL 70-110 Capillary blood glucose measurement by g lucometer (mass/volume) - 01/30/17 20:30 Capillary blood glucose measurement by glucometer (mas s/volume) 366 mg/dL 70-110 Complete blood count (CBC) with automate d white blood cell (WBC) differential - 01/31/17 04:11 Blood leukocytes automated count (number/volume) 8.2 10*3/uL 4.3-11.0 Blood erythrocytes automated count (number/volume) 2.95 10*6/uL 4.35-5.85 Venous blood hemoglobin measurement (mass/volume) 8.7 g/dL 11.5-16.0 Blood hematocrit (volume fraction) 28 % 35-52 Automated erythrocyte mean corpuscular volume 96 [ foz_us] 80-99 Automated erythrocyte mean corpuscular h emoglobin (mass per erythrocyte) 30 pg 25-34 Automated erythrocyte mean corpuscular h emoglobin concentration measurement (mass/volume) 31 g/dL 32-36 Automated erythrocyte distribution width ratio 17. 2 % 10.0- 14.5 Automated blood platelet count (count/volume) 173 10*3/uL [...] 10*3 1.0-4.0 Blood monocytes automated count (number/volume) 0. 7 10*3 0.0-1.0 Automated eosinophil count 0.3 10*3/uL 0 .0-0.3 Automated blood basophil count (count/volume) 0.0 10*3/uL 0.0-0.1 Comprehensive metabolic panel - 01/31/17 04:11 Serum or plasma sodium measurement (moles/volume) 136 mmol/L 135-145 Serum or plasma potassium measurement (moles/volume) 4.6 mmol/L 3.6-5.0 Serum or plasma chloride measurement (moles/volume) 105 mmol/L 98-107 Carbon dioxide 23 mmol/L 21-32 Serum or plasma anion gap determination (moles/volume) 8 mmol/L 5-14 Serum or plasma urea nitrogen measurement (mass/volume ) 18 mg/dL 7-18 Serum or plasma creatinine measurement (mass/volume) 1.33 mg/dL 0.60-1.30 Serum or plasma urea nitrogen/creatinine mass ratio 14 NRG Serum or plasma creatinine measurement w ith calculation of estimated glomerular filtration rate 41 NRG Serum or plasma glucose measurement (mass/volume) 346 mg/dL 70-105 Serum or plasma calcium measurement (mass/volume) 8.3 mg/dL 8.5-10.1 Serum or plasma total bilirubin measurement (mass/volu me) 0.9 mg/dL 0.1-1.0 Serum or plasma alkaline phosphatase momo surement (enzymatic activity/volume) 49 U/L 40-136 Serum or plasma aspartate aminotransfera se measurement (enzymatic activity/volume) 41 U/L 5-34 Serum or plasma alanine aminotransferase measurement (enzymatic activity/volume) 20 U/L 0-55 Serum or plasma protein measurement (mass/volume) 6.6 g/dL 6.4-8.2 Serum or plasma albumin measurement (mass/volume) 3.4 g/dL 3.2-4.5 Serum or plasma phosphate measurement (m ass/volume) - 01/31/17 04:11 Serum or plasma phosphate measurement (mass/volume) 1.2 mg/dL 2.3-4.7 Magnesium - 01/31/17 04:11 Magnesium 1.6 mg/dL 1.8-2.4 Capillary blood glucose measurement by g lucometer (mass/volume) - 01/31/17 11:04 Capillary blood glucose measurement by glucometer (mas s/volume) 525 mg/dL 70-110 Lipid 1996 panel - 05/12/17 15:19 Serum or plasma triglyceride measurement (mass/volume) 232 mg/dL <150 Serum or plasma cholesterol measurement (mass/volume) 231 mg/dL < 200 Serum or plasma cholesterol in HDL measurement (mass/v olume) 45 mg/dL 40-60 Cholesterol in LDL [mass/volume] in serum or plasma by direct assay 143 mg/dL 1-129 Serum or plasma cholesterol in VLDL measurement (mass/ volume) 46 mg/dL 5-40 Serum or plasma thyroxine (T4) free jenny urement (mass/volume) - 05/12/17 15:19 Serum or plasma thyroxine (T4) free measurement (mass/ volume) 1.02 ng/dL 0.70-1.48 Hemoglobin A1c - 05/12/17 15:19 Hemoglobin A1c 7.2 % 4.5-6.2 Serum or plasma thyrotropin measurement by detection limit <=0.05 miu/l (units/volume) - 05/12/17 15:19 Serum or plasma thyrotropin measurement by detection limit <=0.05 miu/l (units/volume) 6.32 u[iU]/mL 0.35-4.94 PROTEIN, TOTAL W/CREAT, RANDOM URINE - 1 07/19/16 16:11 CREATININE, RANDOM URINE 116 mg/dL 20-32 0 PROTEIN/CREATININE RATIO 181 mg/g creat 21-161 PROTEIN, TOTAL, RANDOM UR 21 mg/dL 5-24 Complete blood count (CBC) with automate d white blood cell (WBC) differential - 06/10/17 11:45 Blood leukocytes automated count (number/volume) 5.4 10*3/uL 4.3-11.0 Blood erythrocytes automated count (number/volume) 2.45 10*6/uL 4.35-5.85 Venous blood hemoglobin measurement (mass/volume) 7.4 g/dL 11.5-16.0 Blood hematocrit (volume fraction) 25 % 35-52 Automated erythrocyte mean corpuscular volume 101 [foz_us] 80-99 Automated erythrocyte mean corpuscular h emoglobin (mass per erythrocyte) 30 pg 25-34 Automated erythrocyte mean corpuscular h emoglobin concentration measurement (mass/volume) 30 g/dL 32-36 Automated erythrocyte distribution width ratio 14. 8 % 10.0- 14.5 Automated blood platelet count (count/volume) 162 10*3/uL [...] 10*3 1.0-4.0 Blood monocytes automated count (number/volume) 0. 4 10*3 0.0-1.0 Automated eosinophil count 0.3 10*3/uL 0 .0-0.3 Automated blood basophil count (count/volume) 0.0 10*3/uL 0.0-0.1 Automated reticulocyte percentage - 05/16 12/29 11:45 Blood reticulocytes count (number/volume) 128 10*9 /L 24-90 Blood reticulocytes/100 erythrocytes 5.21 % 0.50-2.40 RED CELLS LEUKO REDUCED AS1 - 06/10/17 1 1:45 RED CELLS LEUKO REDUCED AS1 [facility] TRFSD 06/12/17 0855 [facility] [id number] - 06/10/17 11:45 [id number] SPECIMEN AVAILABLE [facility] Blood type T Indirect antibody screen pa myron - 06/10/17 11:45 ABO+Rh group AP [facility] Transfusion band number [id number] [facility] Blood group antibody screen POSITIVE NR G Blood group antibodies identified - 05/16 12/29 11:45 Blood group antibodies identified JKA [facility] Comprehensive metabolic panel - 06/10/17 11:45 Serum or plasma sodium measurement (moles/volume) 140 mmol/L 135-145 Serum or plasma potassium measurement (moles/volume) 4.7 mmol/L 3.6-5.0 Serum or plasma chloride measurement (moles/volume) 102 mmol/L 98-107 Carbon dioxide 28 mmol/L 21-32 Serum or plasma anion gap determination (moles/volume) 10 mmol/L 5-14 Serum or plasma urea nitrogen measurement (mass/volume ) 20 mg/dL 7-18 Serum or plasma creatinine measurement (mass/volume) 1.13 mg/dL 0.60-1.30 Serum or plasma urea nitrogen/creatinine mass ratio 18 NRG Serum or plasma creatinine measurement w ith calculation of estimated glomerular filtration rate 49 NRG Serum or plasma glucose measurement (mass/volume) 245 mg/dL 70-105 Serum or plasma calcium measurement (mass/volume) 9.1 mg/dL 8.5-10.1 Serum or plasma total bilirubin measurement (mass/volu me) 0.7 mg/dL 0.1-1.0 Serum or plasma alkaline phosphatase momo surement (enzymatic activity/volume) 51 U/L 40-136 Serum or plasma aspartate aminotransfera se measurement (enzymatic activity/volume) 40 U/L 5-34 Serum or plasma alanine aminotransferase measurement (enzymatic activity/volume) 22 U/L 0-55 Serum or plasma protein measurement (mass/volume) 7.1 g/dL 6.4-8.2 Serum or plasma albumin measurement (mass/volume) 3.5 g/dL 3.2-4.5 Serum or plasma ferritin measurement (ma ss/volume) - 06/10/17 11:45 Serum or plasma ferritin measurement (mass/volume) 45.0 % 15.0-150.0 [id number] - 07/01/17 12:54 [id number] SPECIMEN AVAILABLE NRG Complete blood count (CBC) with automate d white blood cell (WBC) differential - 09/12/17 19:55 Blood leukocytes automated count (number/volume) 7.0 10*3/uL 4.3-11.0 Blood erythrocytes automated count (number/volume) 2.67 10*6/uL 4.35-5.85 Venous blood hemoglobin measurement (mass/volume) 8.1 g/dL 11.5-16.0 Blood hematocrit (volume fraction) 26 % 35-52 Automated erythrocyte mean corpuscular volume 97 [ foz_us] 80-99 Automated erythrocyte mean corpuscular h emoglobin (mass per erythrocyte) 30 pg 25-34 Automated erythrocyte mean corpuscular h emoglobin concentration measurement (mass/volume) 31 g/dL 32-36 Automated erythrocyte distribution width ratio 16. 1 % 10.0- 14.5 Automated blood platelet count (count/volume) 159 10*3/uL 130-400 Automated blood platelet mean volume measurement 10.0 [foz_us] 7.4-10.4 Automated blood neutrophils/100 leukocytes 69 % 42-75 Automated blood lymphocytes/100 leukocytes 18 % 12-44 Blood monocytes/100 leukocytes 8 % 0-12 Automated blood eosinophils/100 leukocytes 5 % 0-10 Automated blood basophils/100 leukocytes 0 % 0-10 Blood neutrophils automated count (number/volume) 4.8 10*3 1.8-7.8 Blood lymphocytes automated count (number/volume) 1.3 10*3 1.0-4.0 Blood monocytes automated count (number/volume) 0. 5 10*3 0.0-1.0 Automated eosinophil count 0.4 10*3/uL 0 .0-0.3 Automated blood basophil count (count/volume) 0.0 10*3/uL 0.0-0.1 PT panel in platelet poor plasma by coag ulation assay - 09/12/17 19:55 Prothrombin time (PT) in platelet poor plasma by coagu lation assay 14.0 s 12.2-14.7 INR in platelet poor plasma or blood by coagulation as say 1.1 0.8-1.4 Activated partial thromboplastin time (a PTT) in platelet poor plasma bycoagulation assay - 09/12/17 19:55 Activated partial thromboplastin time (a PTT) in platelet poor plasma bycoagulation assay 29 s 24-35 Comprehensive metabolic panel - 09/12/17 19:55 Serum or plasma sodium measurement (moles/volume) 140 mmol/L 135-145 Serum or plasma potassium measurement (moles/volume) 4.0 mmol/L 3.6-5.0 Serum or plasma chloride measurement (moles/volume) 103 mmol/L 98-107 Carbon dioxide 23 mmol/L 21-32 Serum or plasma anion gap determination (moles/volume) 14 mmol/L 5-14 Serum or plasma urea nitrogen measurement (mass/volume ) 19 mg/dL 7-18 Serum or plasma creatinine measurement (mass/volume) 1.50 mg/dL 0.60-1.30 Serum or plasma urea nitrogen/creatinine mass ratio 13 NRG Serum or plasma creatinine measurement w ith calculation of estimated glomerular filtration rate 35 NRG Serum or plasma glucose measurement (mass/volume) 176 mg/dL 70-105 Serum or plasma calcium measurement (mass/volume) 9.6 mg/dL 8.5-10.1 Serum or plasma total bilirubin measurement (mass/volu me) 0.6 mg/dL 0.1-1.0 Serum or plasma alkaline phosphatase momo surement (enzymatic activity/volume) 65 U/L 40-136 Serum or plasma aspartate aminotransfera se measurement (enzymatic activity/volume) 51 U/L 5-34 Serum or plasma alanine aminotransferase measurement (enzymatic activity/volume) 24 U/L 0-55 Serum or plasma protein measurement (mass/volume) 7.6 g/dL 6.4-8.2 Serum or plasma albumin measurement (mass/volume) 3.9 g/dL 3.2-4.5 Magnesium - 09/12/17 19:55 Magnesium 1.4 mg/dL 1.8-2.4 Serum or plasma troponin i.cardiac measu rement (mass/volume) - 09/12/17 19:55 Serum or plasma troponin i.cardiac measurement (mass/v olume) < ng/mL <0.30 Myoglobin, serum - 09/12/17 19:55 Myoglobin, serum 52.6 ng/mL 10.0-92.0 Serum or plasma amylase measurement (enz ymatic activity/volume) - 09/12/17 19:55 Serum or plasma amylase measurement (enzymatic activit y/volume) 59 U/L 25-125 Lipase - 09/12/17 19:55 Lipase 55 U/L 8-78 Complete blood count (CBC) with automate d white blood cell (WBC) differential - 09/13/17 02:05 Blood leukocytes automated count (number/volume) 7.2 10*3/uL 4.3-11.0 Blood erythrocytes automated count (number/volume) 2.59 10*6/uL 4.35-5.85 Venous blood hemoglobin measurement (mass/volume) 8.0 g/dL 11.5-16.0 Blood hematocrit (volume fraction) 25 % 35-52 Automated erythrocyte mean corpuscular volume 98 [ foz_us] 80-99 Automated erythrocyte mean corpuscular h emoglobin (mass per erythrocyte) 31 pg 25-34 Automated erythrocyte mean corpuscular h emoglobin concentration measurement (mass/volume) 31 g/dL 32-36 Automated erythrocyte distribution width ratio 16. 1 % 10.0- 14.5 Automated blood platelet count (count/volume) 167 10*3/uL [...] 10*3 1.0-4.0 Blood monocytes automated count (number/volume) 0. 5 10*3 0.0-1.0 Automated eosinophil count 0.3 10*3/uL 0 .0-0.3 Automated blood basophil count (count/volume) 0.0 10*3/uL 0.0-0.1 Comprehensive metabolic panel - 09/13/17 02:05 Serum or plasma sodium measurement (moles/volume) 141 mmol/L 135-145 Serum or plasma potassium measurement (moles/volume) 4.2 mmol/L 3.6-5.0 Serum or plasma chloride measurement (moles/volume) 103 mmol/L 98-107 Carbon dioxide 25 mmol/L 21-32 Serum or plasma anion gap determination (moles/volume) 13 mmol/L 5-14 Serum or plasma urea nitrogen measurement (mass/volume ) 19 mg/dL 7-18 Serum or plasma creatinine measurement (mass/volume) 1.40 mg/dL 0.60-1.30 Serum or plasma urea nitrogen/creatinine mass ratio 14 NRG Serum or plasma creatinine measurement w ith calculation of estimated glomerular filtration rate 38 NRG Serum or plasma glucose measurement (mass/volume) 174 mg/dL 70-105 Serum or plasma calcium measurement (mass/volume) 9.3 mg/dL 8.5-10.1 Serum or plasma total bilirubin measurement (mass/volu me) 0.5 mg/dL 0.1-1.0 Serum or plasma alkaline phosphatase momo surement (enzymatic activity/volume) 64 U/L 40-136 Serum or plasma aspartate aminotransfera se measurement (enzymatic activity/volume) 54 U/L 5-34 Serum or plasma alanine aminotransferase measurement (enzymatic activity/volume) 24 U/L 0-55 Serum or plasma protein measurement (mass/volume) 7.1 g/dL 6.4-8.2 Serum or plasma albumin measurement (mass/volume) 3.7 g/dL 3.2-4.5 Lipid 1996 panel - 09/13/17 02:05 Serum or plasma triglyceride measurement (mass/volume) 180 mg/dL <150 Serum or plasma cholesterol measurement (mass/volume) 200 mg/dL < 200 Serum or plasma cholesterol in HDL measurement (mass/v olume) 41 mg/dL 40-60 Cholesterol in LDL [mass/volume] in serum or plasma by direct assay 124 mg/dL 1-129 Serum or plasma cholesterol in VLDL measurement (mass/ volume) 36 mg/dL 5-40 Myoglobin, serum - 09/13/17 02:05 Myoglobin, serum 80.2 ng/mL 10.0-92.0 Serum or plasma troponin i.cardiac measu rement (mass/volume) - 09/13/17 02:05 Serum or plasma troponin i.cardiac measurement (mass/v olume) < ng/mL <0.30 Complete blood count (CBC) with automate d white blood cell (WBC) differential - 10/03/17 23:09 Blood leukocytes automated count (number/volume) 6.2 10*3/uL 4.3-11.0 Blood erythrocytes automated count (number/volume) 2.45 10*6/uL 4.35-5.85 Venous blood hemoglobin measurement (mass/volume) 7.4 g/dL 11.5-16.0 Blood hematocrit (volume fraction) 24 % 35-52 Automated erythrocyte mean corpuscular volume 100 [foz_us] 80-99 Automated erythrocyte mean corpuscular h emoglobin (mass per erythrocyte) 30 pg 25-34 Automated erythrocyte mean corpuscular h emoglobin concentration measurement (mass/volume) 30 g/dL 32-36 Automated erythrocyte distribution width ratio 15. 8 % 10.0- 14.5 Automated blood platelet count (count/volume) 192 10*3/uL [...] 10*3 1.0-4.0 Blood monocytes automated count (number/volume) 0. 4 10*3 0.0-1.0 Automated eosinophil count 0.1 10*3/uL 0 .0-0.3 Automated blood basophil count (count/volume) 0.0 10*3/uL 0.0-0.1 PT panel in platelet poor plasma by coag ulation assay - 10/03/17 23:09 Prothrombin time (PT) in platelet poor plasma by coagu lation assay 14.1 s 12.2-14.7 INR in platelet poor plasma or blood by coagulation as say 1.1 0.8-1.4 Activated partial thromboplastin time (a PTT) in platelet poor plasma bycoagulation assay - 10/03/17 23:09 Activated partial thromboplastin time (a PTT) in platelet poor plasma bycoagulation assay 29 s 24-35 Comprehensive metabolic panel - 10/03/17 23:09 Serum or plasma sodium measurement (moles/volume) 138 mmol/L 135-145 Serum or plasma potassium measurement (moles/volume) 5.0 mmol/L 3.6-5.0 Serum or plasma chloride measurement (moles/volume) 104 mmol/L 98-107 Carbon dioxide 21 mmol/L 21-32 Serum or plasma anion gap determination (moles/volume) 13 mmol/L 5-14 Serum or plasma urea nitrogen measurement (mass/volume ) 28 mg/dL 7-18 Serum or plasma creatinine measurement (mass/volume) 1.55 mg/dL 0.60-1.30 Serum or plasma urea nitrogen/creatinine mass ratio 18 NRG Serum or plasma creatinine measurement w ith calculation of estimated glomerular filtration rate 34 NRG Serum or plasma glucose measurement (mass/volume) 448 mg/dL 70-105 Serum or plasma calcium measurement (mass/volume) 9.5 mg/dL 8.5-10.1 Serum or plasma total bilirubin measurement (mass/volu me) 0.5 mg/dL 0.1-1.0 Serum or plasma alkaline phosphatase momo surement (enzymatic activity/volume) 68 U/L 40-136 Serum or plasma aspartate aminotransfera se measurement (enzymatic activity/volume) 30 U/L 5-34 Serum or plasma alanine aminotransferase measurement (enzymatic activity/volume) 19 U/L 0-55 Serum or plasma protein measurement (mass/volume) 7.5 g/dL 6.4-8.2 Serum or plasma albumin measurement (mass/volume) 3.9 g/dL 3.2-4.5 Magnesium - 10/03/17 23:09 Magnesium 2.3 mg/dL 1.8-2.4 Serum or plasma troponin i.cardiac measu rement (mass/volume) - 10/03/17 23:09 Serum or plasma troponin i.cardiac measurement (mass/v olume) < ng/mL <0.30 Myoglobin, serum - 10/03/17 23:09 Myoglobin, serum 39.0 ng/mL 10.0-92.0 Capillary blood glucose measurement by g lucometer (mass/volume) - 10/04/17 01:26 Capillary blood glucose measurement by glucometer (mas s/volume) 389 mg/dL 70-110 Complete blood count (CBC) with automate d white blood cell (WBC) differential - 10/04/17 04:40 Blood leukocytes automated count (number/volume) 7.4 10*3/uL 4.3-11.0 Blood erythrocytes automated count (number/volume) 2.44 10*6/uL 4.35-5.85 Venous blood hemoglobin measurement (mass/volume) 7.4 g/dL 11.5-16.0 Blood hematocrit (volume fraction) 24 % 35-52 Automated erythrocyte mean corpuscular volume 100 [foz_us] 80-99 Automated erythrocyte mean corpuscular h emoglobin (mass per erythrocyte) 30 pg 25-34 Automated erythrocyte mean corpuscular h emoglobin concentration measurement (mass/volume) 31 g/dL 32-36 Automated erythrocyte distribution width ratio 16. 1 % 10.0- 14.5 Automated blood platelet count (count/volume) 207 10*3/uL 130-400 Automated blood platelet mean volume measurement 9.4 [foz_us] 7.4-10.4 Automated blood neutrophils/100 leukocytes 80 % 42-75 Automated blood lymphocytes/100 leukocytes 10 % 12-44 Blood monocytes/100 leukocytes 8 % 0-12 Automated blood eosinophils/100 leukocytes 1 % 0-10 Automated blood basophils/100 leukocytes 0 % 0-10 Blood neutrophils automated count (number/volume) 6.0 10*3 1.8-7.8 Blood lymphocytes automated count (number/volume) 0.7 10*3 1.0-4.0 Blood monocytes automated count (number/volume) 0. 6 10*3 0.0-1.0 Automated eosinophil count 0.1 10*3/uL 0 .0-0.3 Automated blood basophil count (count/volume) 0.0 10*3/uL 0.0-0.1 Comprehensive metabolic panel - 10/04/17 04:40 Serum or plasma sodium measurement (moles/volume) 137 mmol/L 135-145 Serum or plasma potassium measurement (moles/volume) 5.5 mmol/L 3.6-5.0 Serum or plasma chloride measurement (moles/volume) 106 mmol/L 98-107 Carbon dioxide 24 mmol/L 21-32 Serum or plasma anion gap determination (moles/volume) 7 mmol/L 5-14 Serum or plasma urea nitrogen measurement (mass/volume ) 26 mg/dL 7-18 Serum or plasma creatinine measurement (mass/volume) 1.29 mg/dL 0.60-1.30 Serum or plasma urea nitrogen/creatinine mass ratio 20 NRG Serum or plasma creatinine measurement w ith calculation of estimated glomerular filtration rate 42 NRG Serum or plasma glucose measurement (mass/volume) 367 mg/dL 70-105 Serum or plasma calcium measurement (mass/volume) 9.2 mg/dL 8.5-10.1 Serum or plasma total bilirubin measurement (mass/volu me) 0.5 mg/dL 0.1-1.0 Serum or plasma alkaline phosphatase momo surement (enzymatic activity/volume) 60 U/L 40-136 Serum or plasma aspartate aminotransfera se measurement (enzymatic activity/volume) 34 U/L 5-34 Serum or plasma alanine aminotransferase measurement (enzymatic activity/volume) 19 U/L 0-55 Serum or plasma protein measurement (mass/volume) 7.2 g/dL 6.4-8.2 Serum or plasma albumin measurement (mass/volume) 3.8 g/dL 3.2-4.5 Serum or plasma troponin i.cardiac measu rement (mass/volume) - 10/04/17 04:40 Serum or plasma troponin i.cardiac measurement (mass/v olume) 1.49 ng/mL <0.30 RED CELLS LEUKO REDUCED AS1 - 10/04/17 0 7:13 RED CELLS LEUKO REDUCED AS1 T RANSFUSED 10/04/17 0956 NR Blood type T Indirect antibody screen ze mancillal - 10/04/17 07:13 ABO+Rh group AP NRG Transfusion band number [id number] NRG Blood group antibody screen NEGATIVE NR G Capillary blood glucose measurement by g lucometer (mass/volume) - 10/04/17 10:39 Capillary blood glucose measurement by glucometer (mas s/volume) 354 mg/dL 70-110 Capillary blood glucose measurement by g lucometer (mass/volume) - 10/04/17 16:05 Capillary blood glucose measurement by glucometer (mas s/volume) 318 mg/dL 70-110 Whole blood hemoglobin and hematocrit ze mancillal - 10/04/17 16:19 Venous blood hemoglobin measurement (mass/volume) 8.8 g/dL 11.5-16.0 Blood hematocrit (volume fraction) 28 % 35-52 Stool occult blood screen - 10/04/17 17: 15 Stool gastrointestinal hemoglobin detection POSITI VE NEGATIVE Capillary blood glucose measurement by g lucometer (mass/volume) - 10/04/17 20:04 Capillary blood glucose measurement by glucometer (mas s/volume) 318 mg/dL 70-110 Complete urinalysis with reflex to cultu re - 10/05/17 00:43 Urine color determination YELLOW NRG Urine clarity determination CLEAR NR G Urine pH measurement by test strip 5 5-9 Specific gravity of urine by test strip 1.015 1.016-1.022 Urine protein assay by test strip, semi-quantitative 1+ NEGATIVE Urine glucose detection by automated test strip 2+ NEGATIVE Erythrocytes detection in urine sediment by light micr oscopy 1+ NEGATIVE Urine ketones detection by automated test strip NE GATIVE NEGATIVE Urine nitrite detection by test strip NEGATIVE NEGATIVE Urine total bilirubin detection by test strip NEGA TIVE NEGATIVE Urine urobilinogen measurement by automated test strip (mass/volume) NORMAL NORMAL Urine leukocyte esterase detection by dipstick 1+ NEGATIVE Automated urine sediment erythrocyte cou nt by microscopy (number/high power field) [HPF] NRG Automated urine sediment leukocyte count by microscopy (number/high power field) [HPF] NRG Bacteria detection in urine sediment by light microsco py MODERATE NRG Squamous epithelial cells detection in u rine sediment by light microscopy 2-5 NRG Crystals detection in urine sediment by light microsco py NONE NRG Casts detection in urine sediment by light microscopy NONE NRG Mucus detection in urine sediment by light microscopy NEGATIVE NRG Complete urinalysis with reflex to culture YES NRG Bacterial urine culture - 10/05/17 00:43 Bacterial urine culture [id number] NRG COLONY COUNT >100,000/ML NRG FTX;REPORTABLE SENSITIVITY REPORTED 10/06/17 7:25 NRG Bacterial susceptibility panel - 8 00:43 Gentamicin susceptibility test by minimum inhibitory c oncentration <= NRG Trimethoprim/sulfamethoxazole susceptibi lity test by minimum inhibitoryconcentration S NRG Ampicillin susceptibility test by minimum inhibitory c oncentration >= NRG Tobramycin susceptibility test by minimum inhibitory c oncentration 8 NRG Cefazolin susceptibility test by minimum inhibitory co ncentration <= NRG Ceftriaxone susceptibility test by minimum inhibitory concentration <= NRG Ampicillin/sulbactam susceptibility test by minimum inhibitory concentration R NRG Piperacillin/tazobactam susceptibility t est by minimum inhibitory concentration S NRG Ciprofloxacin susceptibility test by minimum inhibitor y concentration >= NRG Meropenem susceptibility test by minimum inhibitory co ncentration <= NRG Nitrofurantoin susceptibility test by mi nimum inhibitory concentration 32 NRG Aztreonam susceptibility test by minimum inhibitory co ncentration <= NRG Extended spectrum beta lactamase (ESBL) producing bacteria susceptibility test by minimum inhibitory concentration - NRG Blood lactic acid measurement (moles/vol ume) - 10/05/17 00:50 Blood lactic acid measurement (moles/volume) 1.46 mmol/L 0.50-2.00 Bacterial blood culture - 10/05/17 00:50 Bacterial blood culture NG NRG Bacterial blood culture - 10/05/17 01:00 Bacterial blood culture NG NRG Automated blood complete blood count (he mogram) panel - 10/05/17 05:22 Blood leukocytes automated count (number/volume) 7.7 10*3/uL 4.3-11.0 Blood erythrocytes automated count (number/volume) 2.69 10*6/uL 4.35-5.85 Venous blood hemoglobin measurement (mass/volume) 8.1 g/dL 11.5-16.0 Blood hematocrit (volume fraction) 26 % 35-52 Automated erythrocyte mean corpuscular volume 97 [ foz_us] 80-99 Automated erythrocyte mean corpuscular h emoglobin (mass per erythrocyte) 30 pg 25-34 Automated erythrocyte mean corpuscular h emoglobin concentration measurement (mass/volume) 31 g/dL 32-36 Automated erythrocyte distribution width ratio 16. 2 % 10.0- 14.5 Automated blood platelet count (count/volume) 153 10*3/uL 130-400 Automated blood platelet mean volume measurement 10.2 [foz_us] 7.4-10.4 Automated reticulocyte percentage - 09/14 08/30 05:22 Blood reticulocytes count (number/volume) 132 10*9 /L 24-90 Blood reticulocytes/100 erythrocytes 4.89 % 0.50-2.40 Whole blood basic metabolic panel - 09/14 08/30 05:22 Serum or plasma sodium measurement (moles/volume) 136 mmol/L 135-145 Serum or plasma potassium measurement (moles/volume) 4.7 mmol/L 3.6-5.0 Serum or plasma chloride measurement (moles/volume) 104 mmol/L 98-107 Carbon dioxide 24 mmol/L 21-32 Serum or plasma anion gap determination (moles/volume) 8 mmol/L 5-14 Serum or plasma urea nitrogen measurement (mass/volume ) 24 mg/dL 7-18 Serum or plasma creatinine measurement (mass/volume) 1.14 mg/dL 0.60-1.30 Serum or plasma urea nitrogen/creatinine mass ratio 21 NRG Serum or plasma creatinine measurement w ith calculation of estimated glomerular filtration rate 49 NRG Serum or plasma glucose measurement (mass/volume) 362 mg/dL 70-105 Serum or plasma calcium measurement (mass/volume) 9.0 mg/dL 8.5-10.1 Capillary blood glucose measurement by g lucometer (mass/volume) - 10/05/17 05:26 Capillary blood glucose measurement by glucometer (mas s/volume) 349 mg/dL 70-110 Capillary blood glucose measurement by g lucometer (mass/volume) - 10/05/17 11:11 Capillary blood glucose measurement by glucometer (mas s/volume) 356 mg/dL 70-110 [id number] - 11/03/17 13:10 [id number] SPECIMEN AVAILABLE [facility] Lipid 1996 panel - 11/06/17 11:40 Serum or plasma triglyceride measurement (mass/volume) 126 mg/dL <150 Serum or plasma cholesterol measurement (mass/volume) 165 mg/dL < 200 Serum or plasma cholesterol in HDL measurement (mass/v olume) 45 mg/dL 40-60 Cholesterol in LDL [mass/volume] in serum or plasma by direct assay 99 mg/dL 1-129 Serum or plasma cholesterol in VLDL measurement (mass/ volume) 25 mg/dL 5-40 RED CELLS LEUKO REDUCED AS1 - 11/06/17 1 1:40 RED CELLS LEUKO REDUCED AS1 T RANSFUSED 11/06/171947 [facility] Blood type T Indirect antibody screen pa myron - 11/06/17 11:40 ABO+Rh group AP [facility] Transfusion band number [id number] [facility] Blood group antibody screen NEGATIVE [facility] Comprehensive metabolic panel - 11/06/17 11:40 Serum or plasma sodium measurement (moles/volume) 138 mmol/L 135-145 Serum or plasma potassium measurement (moles/volume) 5.0 mmol/L 3.6-5.0 Serum or plasma chloride measurement (moles/volume) 105 mmol/L 98-107 Carbon dioxide 25 mmol/L 21-32 Serum or plasma anion gap determination (moles/volume) 8 mmol/L 5-14 Serum or plasma urea nitrogen measurement (mass/volume ) 25 mg/dL 7-18 Serum or plasma creatinine measurement (mass/volume) 1.30 mg/dL 0.60-1.30 Serum or plasma urea nitrogen/creatinine mass ratio 19 [facility] Serum or plasma creatinine measurement w ith calculation of estimated glomerular filtration rate 42 [facility] Serum or plasma glucose measurement (mass/volume) 126 mg/dL 70-105 Serum or plasma calcium measurement (mass/volume) 9.0 mg/dL 8.5-10.1 Serum or plasma total bilirubin measurement (mass/volu me) 0.4 mg/dL 0.1-1.0 Serum or plasma alkaline phosphatase momo surement (enzymatic activity/volume) 50 U/L 40-136 Serum or plasma aspartate aminotransfera se measurement (enzymatic activity/volume) 17 U/L 5-34 Serum or plasma alanine aminotransferase measurement (enzymatic activity/volume) 9 U/L 0-55 Serum or plasma protein measurement (mass/volume) 6.8 g/dL 6.4-8.2 Serum or plasma albumin measurement (mass/volume) 3.5 g/dL 3.2-4.5 Serum or plasma folate measurement (mass /volume) - 11/17/17 15:00 Serum or plasma folate measurement (mass/volume) 1 7.1 % >=4.0 Cyanocobalamin measurement - 11/17/17 15 :00 Vitamin B12 486 pg/mL 190-1100 Serum tissue transglutaminase IgA antibo dy detection - 11/17/17 15:00 Serum tissue transglutaminase IgA antibody detection <20.0 0.0-19.9 Gastric fluid parietal cell antibody det ection by immunofluorescence - 11/17/17 15:00 Gastric parietal cell antibody titer < <1:20 RED CELLS LEUKO REDUCED AS1 - 02/10/18 1 3:37 RED CELLS LEUKO REDUCED AS1 T RANSFUSED 02/11/18 0229 [facility] Blood type T Indirect antibody screen pa myron - 02/10/18 13:37 ABO+Rh group AP NRG Transfusion band number [id number] NRG Blood group antibody screen NEGATIVE NR G Complete blood count (CBC) with automate d white blood cell (WBC) differential - 02/10/18 23:36 Blood leukocytes automated count (number/volume) 5.1 10*3/uL 4.3-11.0 Blood erythrocytes automated count (number/volume) 2.13 10*6/uL 4.35-5.85 Venous blood hemoglobin measurement (mass/volume) 6.6 g/dL 11.5-16.0 Blood hematocrit (volume fraction) 21 % 35-52 Automated erythrocyte mean corpuscular volume 97 [ foz_us] 80-99 Automated erythrocyte mean corpuscular h emoglobin (mass per erythrocyte) 31 pg 25-34 Automated erythrocyte mean corpuscular h emoglobin concentration measurement (mass/volume) 32 g/dL 32-36 Automated erythrocyte distribution width ratio 17. 2 % 10.0- 14.5 Automated blood platelet count (count/volume) 161 10*3/uL 130-400 Automated blood platelet mean volume measurement 10.7 [foz_us] 7.4-10.4 Automated blood neutrophils/100 leukocytes 67 % 42-75 Automated blood lymphocytes/100 leukocytes 16 % 12-44 Blood monocytes/100 leukocytes 9 % 0-12 Automated blood eosinophils/100 leukocytes 7 % 0-10 Automated blood basophils/100 leukocytes 0 % 0-10 Blood neutrophils automated count (number/volume) 3.4 10*3 1.8-7.8 Blood lymphocytes automated count (number/volume) 0.8 10*3 1.0-4.0 Blood monocytes automated count (number/volume) 0. 5 10*3 0.0-1.0 Automated eosinophil count 0.4 10*3/uL 0 .0-0.3 Automated blood basophil count (count/volume) 0.0 10*3/uL 0.0-0.1 PT panel in platelet poor plasma by coag ulation assay - 02/10/18 23:36 Prothrombin time (PT) in platelet poor plasma by coagu lation assay 14.0 s 12.2-14.7 INR in platelet poor plasma or blood by coagulation as say 1.1 0.8-1.4 Activated partial thromboplastin time (a PTT) in platelet poor plasma bycoagulation assay - 02/10/18 23:36 Activated partial thromboplastin time (a PTT) in platelet poor plasma bycoagulation assay 26 s 24-35 Comprehensive metabolic panel - 02/10/18 23:36 Serum or plasma sodium measurement (moles/volume) 136 mmol/L 135-145 Serum or plasma potassium measurement (moles/volume) 4.2 mmol/L 3.6-5.0 Serum or plasma chloride measurement (moles/volume) 104 mmol/L 98-107 Carbon dioxide 21 mmol/L 21-32 Serum or plasma anion gap determination (moles/volume) 11 mmol/L 5-14 Serum or plasma urea nitrogen measurement (mass/volume ) 25 mg/dL 7-18 Serum or plasma creatinine measurement (mass/volume) 1.39 mg/dL 0.60-1.30 Serum or plasma urea nitrogen/creatinine mass ratio 18 NRG Serum or plasma creatinine measurement w ith calculation of estimated glomerular filtration rate 39 NRG Serum or plasma glucose measurement (mass/volume) 383 mg/dL 70-105 Serum or plasma calcium measurement (mass/volume) 9.4 mg/dL 8.5-10.1 Serum or plasma total bilirubin measurement (mass/volu me) 0.5 mg/dL 0.1-1.0 Serum or plasma alkaline phosphatase momo surement (enzymatic activity/volume) 67 U/L 40-136 Serum or plasma aspartate aminotransfera se measurement (enzymatic activity/volume) 28 U/L 5-34 Serum or plasma alanine aminotransferase measurement (enzymatic activity/volume) 13 U/L 0-55 Serum or plasma protein measurement (mass/volume) 7.2 g/dL 6.4-8.2 Serum or plasma albumin measurement (mass/volume) 3.7 g/dL 3.2-4.5 CALCIUM CORRECTED 9.6 mg/dL 8.5-10.1 Magnesium - 02/10/18 23:36 Magnesium 1.7 mg/dL 1.8-2.4 Serum or plasma creatine kinase measurem ent (enzymatic activity/volume) - 02/10/18 23:36 Serum or plasma creatine kinase measurem ent (enzymatic activity/volume) 46 U/L 29-168 Serum or plasma creatine kinase MB measu rement (enzymatic activity/volume) - 02/10/18 23:36 Serum or plasma creatine kinase MB measu rement (enzymatic activity/volume) 0.8 ng/mL <6.6 Serum or plasma troponin i.cardiac measu rement (mass/volume) - 02/10/18 23:36 Serum or plasma troponin i.cardiac measurement (mass/v olume) < ng/mL <0.30 Myoglobin, serum - 02/10/18 23:36 Myoglobin, serum 35.1 ng/mL 10.0-92.0 Serum or plasma amylase measurement (enz ymatic activity/volume) - 02/10/18 23:36 Serum or plasma amylase measurement (enzymatic activit y/volume) 47 U/L 25-125 Serum or plasma lithium measurement (mol es/volume) - 02/10/18 23:36 BNP level 256.9 pg/mL <100.0 Lipase - 02/10/18 23:36 Lipase 53 U/L 8-78 Methicillin resistant Staphylococcus aur eus (MRSA) screening culture - 02/11/18 01:36 MRSA SCREEN RESULT MRSA NOT ISOLATED NR G Complete blood count (CBC) with automate d white blood cell (WBC) differential - 02/11/18 05:05 Blood leukocytes automated count (number/volume) 7.6 10*3/uL 4.3-11.0 Blood erythrocytes automated count (number/volume) 2.30 10*6/uL 4.35-5.85 Venous blood hemoglobin measurement (mass/volume) 7.3 g/dL 11.5-16.0 Blood hematocrit (volume fraction) 22 % 35-52 Automated erythrocyte mean corpuscular volume 96 [ foz_us] 80-99 Automated erythrocyte mean corpuscular h emoglobin (mass per erythrocyte) 32 pg 25-34 Automated erythrocyte mean corpuscular h emoglobin concentration measurement (mass/volume) 33 g/dL 32-36 Automated erythrocyte distribution width ratio 16. 6 % 10.0- 14.5 Automated blood platelet count (count/volume) 188 10*3/uL 130-400 Automated blood platelet mean volume measurement 10.6 [foz_us] 7.4-10.4 Automated blood neutrophils/100 leukocytes 77 % 42-75 Automated blood lymphocytes/100 leukocytes 13 % 12-44 Blood monocytes/100 leukocytes 7 % 0-12 Automated blood eosinophils/100 leukocytes 3 % 0-10 Automated blood basophils/100 leukocytes 1 % 0-10 Blood neutrophils automated count (number/volume) 5.8 10*3 1.8-7.8 Blood lymphocytes automated count (number/volume) 1.0 10*3 1.0-4.0 Blood monocytes automated count (number/volume) 0. 6 10*3 0.0-1.0 Automated eosinophil count 0.2 10*3/uL 0 .0-0.3 Automated blood basophil count (count/volume) 0.0 10*3/uL 0.0-0.1 Comprehensive metabolic panel - 02/11/18 05:05 Serum or plasma sodium measurement (moles/volume) 136 mmol/L 135-145 Serum or plasma potassium measurement (moles/volume) 4.7 mmol/L 3.6-5.0 Serum or plasma chloride measurement (moles/volume) 103 mmol/L 98-107 Carbon dioxide 22 mmol/L 21-32 Serum or plasma anion gap determination (moles/volume) 11 mmol/L 5-14 Serum or plasma urea nitrogen measurement (mass/volume ) 24 mg/dL 7-18 Serum or plasma creatinine measurement (mass/volume) 1.30 mg/dL 0.60-1.30 Serum or plasma urea nitrogen/creatinine mass ratio 18 NRG Serum or plasma creatinine measurement w ith calculation of estimated glomerular filtration rate 42 NRG Serum or plasma glucose measurement (mass/volume) 438 mg/dL 70-105 Serum or plasma calcium measurement (mass/volume) 9.3 mg/dL 8.5-10.1 Serum or plasma total bilirubin measurement (mass/volu me) 0.7 mg/dL 0.1-1.0 Serum or plasma alkaline phosphatase momo surement (enzymatic activity/volume) 67 U/L 40-136 Serum or plasma aspartate aminotransfera se measurement (enzymatic activity/volume) 28 U/L 5-34 Serum or plasma alanine aminotransferase measurement (enzymatic activity/volume) 12 U/L 0-55 Serum or plasma protein measurement (mass/volume) 7.1 g/dL 6.4-8.2 Serum or plasma albumin measurement (mass/volume) 3.7 g/dL 3.2-4.5 CALCIUM CORRECTED 9.5 mg/dL 8.5-10.1 Serum or plasma phosphate measurement (m ass/volume) - 02/11/18 05:05 Serum or plasma phosphate measurement (mass/volume) 3.4 mg/dL 2.3-4.7 Magnesium - 02/11/18 05:05 Magnesium 1.6 mg/dL 1.8-2.4 Serum or plasma troponin i.cardiac measu rement (mass/volume) - 02/11/18 05:05 Serum or plasma troponin i.cardiac measurement (mass/v olume) < ng/mL <0.30 Myoglobin, serum - 02/11/18 05:05 Myoglobin, serum 43.9 ng/mL 10.0-92.0 Lipid 1996 panel - 02/11/18 05:05 Serum or plasma triglyceride measurement (mass/volume) 172 mg/dL <150 Serum or plasma cholesterol measurement (mass/volume) 188 mg/dL < 200 Serum or plasma cholesterol in HDL measurement (mass/v olume) 34 mg/dL 40-60 Cholesterol in LDL [mass/volume] in serum or plasma by direct assay 118 mg/dL 1-129 Serum or plasma cholesterol in VLDL measurement (mass/ volume) 34 mg/dL 5-40 Hemoglobin A1c - 02/11/18 05:05 Blood hemoglobin A1C measurement (mass/volume) 7.0 % 4.0-5.6 MEAN BLOOD GLUCOSE 154 % <=126 Capillary blood glucose measurement by g lucometer (mass/volume) - 02/11/18 08:57 Capillary blood glucose measurement by glucometer (mas s/volume) 374 mg/dL 70-110 Whole blood hemoglobin and hematocrit pa myron - 02/11/18 12:49 Venous blood hemoglobin measurement (mass/volume) 8.1 g/dL 11.5-16.0 Blood hematocrit (volume fraction) 25 % 35-52 Serum or plasma troponin i.cardiac measu rement (mass/volume) - 02/11/18 12:49 Serum or plasma troponin i.cardiac measurement (mass/v olume) 0.35 ng/mL <0.30 Capillary blood glucose measurement by g lucometer (mass/volume) - 02/11/18 15:59 Capillary blood glucose measurement by glucometer (mas s/volume) 228 mg/dL 70-110 Capillary blood glucose measurement by g lucometer (mass/volume) - 02/11/18 20:00 Capillary blood glucose measurement by glucometer (mas s/volume) 138 mg/dL 70-110 Complete blood count (CBC) with automate d white blood cell (WBC) differential - 02/12/18 06:30 Blood leukocytes automated count (number/volume) 12.1 10*3/uL 4.3-11.0 Blood erythrocytes automated count (number/volume) 2.60 10*6/uL 4.35-5.85 Venous blood hemoglobin measurement (mass/volume) 8.1 g/dL 11.5-16.0 Blood hematocrit (volume fraction) 25 % 35-52 Automated erythrocyte mean corpuscular volume 97 [ foz_us] 80-99 Automated erythrocyte mean corpuscular h emoglobin (mass per erythrocyte) 31 pg 25-34 Automated erythrocyte mean corpuscular h emoglobin concentration measurement (mass/volume) 32 g/dL 32-36 Automated erythrocyte distribution width ratio 17. 2 % 10.0- 14.5 Automated blood platelet count (count/volume) 158 10*3/uL 130-400 Automated blood platelet mean volume measurement 10.1 [foz_us] 7.4-10.4 Automated blood neutrophils/100 leukocytes 79 % 42-75 Automated blood lymphocytes/100 leukocytes 9 % 12-44 Blood monocytes/100 leukocytes 12 % 0-12 Automated blood eosinophils/100 leukocytes 0 % 0-10 Automated blood basophils/100 leukocytes 0 % 0-10 Blood neutrophils automated count (number/volume) 9.5 10*3 1.8-7.8 Blood lymphocytes automated count (number/volume) 1.1 10*3 1.0-4.0 Blood monocytes automated count (number/volume) 1. 4 10*3 0.0-1.0 Automated eosinophil count 0.0 10*3/uL 0 .0-0.3 Automated blood basophil count (count/volume) 0.0 10*3/uL 0.0-0.1 Comprehensive metabolic panel - 02/12/18 06:30 Serum or plasma sodium measurement (moles/volume) 133 mmol/L 135-145 Serum or plasma potassium measurement (moles/volume) 4.6 mmol/L 3.6-5.0 Serum or plasma chloride measurement (moles/volume) 101 mmol/L 98-107 Carbon dioxide 22 mmol/L 21-32 Serum or plasma anion gap determination (moles/volume) 10 mmol/L 5-14 Serum or plasma urea nitrogen measurement (mass/volume ) 17 mg/dL 7-18 Serum or plasma creatinine measurement (mass/volume) 1.18 mg/dL 0.60-1.30 Serum or plasma urea nitrogen/creatinine mass ratio 14 NRG Serum or plasma creatinine measurement w ith calculation of estimated glomerular filtration rate 47 NRG Serum or plasma glucose measurement (mass/volume) 282 mg/dL 70-105 Serum or plasma calcium measurement (mass/volume) 9.4 mg/dL 8.5-10.1 Serum or plasma total bilirubin measurement (mass/volu me) 1.0 mg/dL 0.1-1.0 Serum or plasma alkaline phosphatase momo surement (enzymatic activity/volume) 62 U/L 40-136 Serum or plasma aspartate aminotransfera se measurement (enzymatic activity/volume) 27 U/L 5-34 Serum or plasma alanine aminotransferase measurement (enzymatic activity/volume) 11 U/L 0-55 Serum or plasma protein measurement (mass/volume) 6.9 g/dL 6.4-8.2 Serum or plasma albumin measurement (mass/volume) 3.5 g/dL 3.2-4.5 CALCIUM CORRECTED 9.8 mg/dL 8.5-10.1 Serum or plasma troponin i.cardiac measu rement (mass/volume) - 02/12/18 06:30 Serum or plasma troponin i.cardiac measurement (mass/v olume) 0.40 ng/mL <0.30 Capillary blood glucose measurement by g lucometer (mass/volume) - 02/12/18 11:26 Capillary blood glucose measurement by glucometer (mas s/volume) 366 mg/dL 70-110 Capillary blood glucose measurement by g lucometer (mass/volume) - 02/12/18 16:07 Capillary blood glucose measurement by glucometer (mas s/volume) 285 mg/dL 70-110 CBC - 03/01/18 13:45 WHITE BLOOD CELL COUNT 8.1 Thousand/uL 3 .8-10.8 RED BLOOD CELL COUNT 2.82 Million/uL 3.8 0-5.10 HEMOGLOBIN 8.6 g/dL 11.7-15.5 HEMATOCRIT 27.1 % 35.0-45.0 MCV 96.1 fL 80.0-100.0 MCH 30.5 pg 27.0-33.0 MCHC 31.7 g/dL 32.0-36.0 RDW 15.4 % 11.0-15.0 PLATELET COUNT 157 Thousand/uL 140-400 MPV 11.0 fL 7.5-12.5 ABSOLUTE NEUTROPHILS 6051 cells/uL 1500- 7800 ABSOLUTE LYMPHOCYTES 1013 cells/uL 850-3 900 ABSOLUTE MONOCYTES 616 cells/uL 200-950 ABSOLUTE EOSINOPHILS 373 cells/uL 15-500 ABSOLUTE BASOPHILS 49 cells/uL 0-200 NEUTROPHILS 74.7 % NRG LYMPHOCYTES 12.5 % NRG MONOCYTES 7.6 % NRG EOSINOPHILS 4.6 % NRG BASOPHILS 0.6 % NRG PT panel in platelet poor plasma by coag ulation assay - 04/29/18 15:05 Prothrombin time (PT) in platelet poor plasma by coagu lation assay 15.6 s 12.2-14.7 INR in platelet poor plasma or blood by coagulation as say 1.2 0.8-1.4 Comprehensive metabolic panel - 04/29/18 16:30 Serum or plasma sodium measurement (moles/volume) 138 mmol/L 135-145 Serum or plasma potassium measurement (moles/volume) 4.8 mmol/L 3.6-5.0 Serum or plasma chloride measurement (moles/volume) 99 mmol/L 98-107 Carbon dioxide 27 mmol/L 21-32 Serum or plasma anion gap determination (moles/volume) 12 mmol/L 5-14 Serum or plasma urea nitrogen measurement (mass/volume ) 32 mg/dL 7-18 Serum or plasma creatinine measurement (mass/volume) 2.30 mg/dL 0.60-1.30 Serum or plasma urea nitrogen/creatinine mass ratio 14 NRG Serum or plasma creatinine measurement w ith calculation of estimated glomerular filtration rate 22 NRG Serum or plasma glucose measurement (mass/volume) 209 mg/dL 70-105 Serum or plasma calcium measurement (mass/volume) 8.6 mg/dL 8.5-10.1 Serum or plasma total bilirubin measurement (mass/volu me) 1.0 mg/dL 0.1-1.0 Serum or plasma alkaline phosphatase momo surement (enzymatic activity/volume) 67 U/L 40-136 Serum or plasma aspartate aminotransfera se measurement (enzymatic activity/volume) 23 U/L 5-34 Serum or plasma alanine aminotransferase measurement (enzymatic activity/volume) 10 U/L 0-55 Serum or plasma protein measurement (mass/volume) 6.6 g/dL 6.4-8.2 Serum or plasma albumin measurement (mass/volume) 3.0 g/dL 3.2-4.5 CALCIUM CORRECTED 9.4 mg/dL 8.5-10.1 [id number] - 04/29/18 16:30 Screening antinuclear antibody (IVON) assay by enzyme i mmunoassay <1:80 <1:80 Hepatitis A virus total antibody assay - 04/29/18 16:30 HEP A ANTIBODY INDEX 9.84 % <=1.00 Hepatitis A total antibody Reactive Non -Reactive Human immunodeficiency virus (HIV) type 1 and 2 antibody detection - 04/29/18 16:30 Serum HIV 1+2 antibody detection by immunoblot Non-Reactive Non-Reactive Immunoglobulin G subclass panel - 16:30 [id number] % [id number] Immunoglobulin G1 measurement 994 % 382-929 Immunoglobulin G2 measurement 387 % 242-700 Immunoglobulin G3 measurement 100 % 22-176 Immunoglobulin G4 measurement 33 % 0-86 Serum smooth muscle antibody detection - 04/29/18 16:30 Serum smooth muscle antibody assay (units/volume) < <1:20 Serum ceruloplasmin measurement - 16:30 Serum ceruloplasmin measurement 25 % 18-53 Serum mitochondria antibody assay (units /volume) - 04/29/18 16:30 Serum mitochondria antibody assay (units/volume) < <1:20 RED CELLS LEUKO REDUCED AS1 - 05/04/18 1 6:12 RED CELLS LEUKO REDUCED AS1 T RANSFUSED 05/05/18 1446 NRG Blood type T Indirect antibody screen pa myron - 05/04/18 16:12 ABO+Rh group AP NRG Transfusion band number [id number] NRG Blood group antibody screen NEGATIVE NR G Bacterial blood culture - 05/20/18 15:32 Bacterial blood culture NG NRG Complete blood count (CBC) with automate d white blood cell (WBC) differential - 05/20/18 15:43 Blood leukocytes automated count (number/volume) 5.2 10*3/uL 4.3-11.0 Blood erythrocytes automated count (number/volume) 2.61 10*6/uL 4.35-5.85 Venous blood hemoglobin measurement (mass/volume) 8.1 g/dL 11.5-16.0 Blood hematocrit (volume fraction) 26 % 35-52 Automated erythrocyte mean corpuscular volume 101 [foz_us] 80-99 Automated erythrocyte mean corpuscular h emoglobin (mass per erythrocyte) 31 pg 25-34 Automated erythrocyte mean corpuscular h emoglobin concentration measurement (mass/volume) 31 g/dL 32-36 Automated erythrocyte distribution width ratio 16. 3 % 10.0- 14.5 Automated blood platelet count (count/volume) 161 10*3/uL 130-400 Automated blood platelet mean volume measurement 10.0 [foz_us] 7.4-10.4 Automated blood neutrophils/100 leukocytes 78 % 42-75 Automated blood lymphocytes/100 leukocytes 9 % 12-44 Blood monocytes/100 leukocytes 10 % 0-12 Automated blood eosinophils/100 leukocytes 2 % 0-10 Automated blood basophils/100 leukocytes 1 % 0-10 Blood neutrophils automated count (number/volume) 4.1 10*3 1.8-7.8 Blood lymphocytes automated count (number/volume) 0.5 10*3 1.0-4.0 Blood monocytes automated count (number/volume) 0. 5 10*3 0.0-1.0 Automated eosinophil count 0.1 10*3/uL 0 .0-0.3 Automated blood basophil count (count/volume) 0.1 10*3/uL 0.0-0.1 PT panel in platelet poor plasma by coag ulation assay - 05/20/18 15:43 Prothrombin time (PT) in platelet poor plasma by coagu lation assay 15.6 s 12.2-14.7 INR in platelet poor plasma or blood by coagulation as say 1.2 0.8-1.4 Activated partial thromboplastin time (a PTT) in platelet poor plasma bycoagulation assay - 05/20/18 15:43 Activated partial thromboplastin time (a PTT) in platelet poor plasma bycoagulation assay 28 s 24-35 Blood lactic acid measurement (moles/vol ume) - 05/20/18 15:43 Blood lactic acid measurement (moles/volume) 1.37 mmol/L 0.50-2.00 Comprehensive metabolic panel - 05/20/18 15:43 Serum or plasma sodium measurement (moles/volume) 135 mmol/L 135-145 Serum or plasma potassium measurement (moles/volume) 4.9 mmol/L 3.6-5.0 Serum or plasma chloride measurement (moles/volume) 97 mmol/L 98-107 Carbon dioxide 31 mmol/L 21-32 Serum or plasma anion gap determination (moles/volume) 7 mmol/L 5-14 Serum or plasma urea nitrogen measurement (mass/volume ) 32 mg/dL 7-18 Serum or plasma creatinine measurement (mass/volume) 2.63 mg/dL 0.60-1.30 Serum or plasma urea nitrogen/creatinine mass ratio 12 NRG Serum or plasma creatinine measurement w ith calculation of estimated glomerular filtration rate 19 NRG Serum or plasma glucose measurement (mass/volume) 166 mg/dL 70-105 Serum or plasma calcium measurement (mass/volume) 8.7 mg/dL 8.5-10.1 Serum or plasma total bilirubin measurement (mass/volu me) 0.9 mg/dL 0.1-1.0 Serum or plasma alkaline phosphatase momo surement (enzymatic activity/volume) 65 U/L 40-136 Serum or plasma aspartate aminotransfera se measurement (enzymatic activity/volume) 17 U/L 5-34 Serum or plasma alanine aminotransferase measurement (enzymatic activity/volume) 6 U/L 0-55 Serum or plasma protein measurement (mass/volume) 6.9 g/dL 6.4-8.2 Serum or plasma albumin measurement (mass/volume) 3.1 g/dL 3.2-4.5 CALCIUM CORRECTED 9.4 mg/dL 8.5-10.1 Bacterial blood culture - 05/20/18 15:43 FREE TEXT EXTERNAL RML SENT SENSITIVITY REPORT 05/23 12:05 NRG QUANTITY OF GROWTH Isolated NRG Bacterial blood culture [id number] NRG RML SENSITIVITY MAIN LAB - 05/20/18 15:4 3 Oxacillin susceptibility test by minimum inhibitory co ncentration <= NRG Clindamycin susceptibility test by minimum inhibitory concentration <= NRG Erythromycin susceptibility test by minimum inhibitory concentration <= NRG Vancomycin susceptibility test by minimum inhibitory c oncentration <= NRG Levofloxacin susceptibility test by minimum inhibitory concentration <= NRG Rifampin susceptibility test by minimum inhibitory con centration <= NRG Cefazolin susceptibility test by minimum inhibitory co ncentration <= NRG Minocycline susc CODIE <= NRG Complete urinalysis with reflex to cultu re - 05/20/18 21:38 Urine color determination YELLOW NRG Urine clarity determination CLEAR NR G Urine pH measurement by test strip 5 5-9 Specific gravity of urine by test strip 1.020 1.016-1.022 Urine protein assay by test strip, semi-quantitative 1+ NEGATIVE Urine glucose detection by automated test strip NE GATIVE NEGATIVE Erythrocytes detection in urine sediment by light micr oscopy NEGATIVE NEGATIVE Urine ketones detection by automated test strip NE GATIVE NEGATIVE Urine nitrite detection by test strip NEGATIVE NEGATIVE Urine total bilirubin detection by test strip NEGA TIVE NEGATIVE Urine urobilinogen measurement by automated test strip (mass/volume) NORMAL NORMAL Urine leukocyte esterase detection by dipstick 1+ NEGATIVE Automated urine sediment erythrocyte cou nt by microscopy (number/high power field) NONE NRG Automated urine sediment leukocyte count by microscopy (number/high power field) [HPF] NRG Bacteria detection in urine sediment by light microsco py MODERATE NRG Squamous epithelial cells detection in u rine sediment by light microscopy >50 NRG Crystals detection in urine sediment by light microsco py NONE NRG Casts detection in urine sediment by light microscopy NONE NRG Mucus detection in urine sediment by light microscopy NEGATIVE NRG Complete urinalysis with reflex to culture NO NRG Bacterial urine culture - 05/20/18 21:38 Bacterial urine culture [id number] NRG COLONY COUNT >100,000/ML NRG FTX;REPORTABLE RML SENT SENSITIVITY REPORT 05/23 09 :05 NRG FREE TEXT ENTRY 2 RML SENT ID REPORT 05/22 14:05 NRG RML Sensitivity Panel - 05/20/18 21:38 Gentamicin susceptibility test by minimum inhibitory c oncentration <= NRG Trimethoprim/sulfamethoxazole susceptibi lity test by minimum inhibitoryconcentration <= NRG Levofloxacin susceptibility test by minimum inhibitory concentration <= NRG Ampicillin susceptibility test by minimum inhibitory c oncentration <= NRG Cefazolin susceptibility test by minimum inhibitory co ncentration <= NRG Ceftriaxone susceptibility test by minimum inhibitory concentration <= NRG Ciprofloxacin susceptibility test by minimum inhibitor y concentration <= NRG Meropenem susceptibility test by minimum inhibitory co ncentration <= NRG Nitrofurantoin susceptibility test by mi nimum inhibitory concentration <= NRG Amoxicillin and clavulanate potassium susc CODIE <= NRG Capillary blood glucose measurement by g lucometer (mass/volume) - 05/20/18 21:44 Capillary blood glucose measurement by glucometer (mas s/volume) 258 mg/dL 70-110 Automated blood complete blood count (he mogram) panel - 05/21/18 05:30 Blood leukocytes automated count (number/volume) 4.0 10*3/uL 4.3-11.0 Blood erythrocytes automated count (number/volume) 2.59 10*6/uL 4.35-5.85 Venous blood hemoglobin measurement (mass/volume) 7.9 g/dL 11.5-16.0 Blood hematocrit (volume fraction) 27 % 35-52 Automated erythrocyte mean corpuscular volume 102 [foz_us] 80-99 Automated erythrocyte mean corpuscular h emoglobin (mass per erythrocyte) 31 pg 25-34 Automated erythrocyte mean corpuscular h emoglobin concentration measurement (mass/volume) 30 g/dL 32-36 Automated erythrocyte distribution width ratio 15. 7 % 10.0- 14.5 Automated blood platelet count (count/volume) 126 10*3/uL 130-400 Automated blood platelet mean volume measurement 9.6 [foz_us] 7.4-10.4 Whole blood basic metabolic panel - 12/30 05:30 Serum or plasma sodium measurement (moles/volume) 136 mmol/L 135-145 Serum or plasma potassium measurement (moles/volume) 5.0 mmol/L 3.6-5.0 Serum or plasma chloride measurement (moles/volume) 98 mmol/L 98-107 Carbon dioxide 30 mmol/L 21-32 Serum or plasma anion gap determination (moles/volume) 8 mmol/L 5-14 Serum or plasma urea nitrogen measurement (mass/volume ) 32 mg/dL 7-18 Serum or plasma creatinine measurement (mass/volume) 2.53 mg/dL 0.60-1.30 Serum or plasma urea nitrogen/creatinine mass ratio 13 NRG Serum or plasma creatinine measurement w ith calculation of estimated glomerular filtration rate 19 NRG Serum or plasma glucose measurement (mass/volume) 152 mg/dL 70-105 Serum or plasma calcium measurement (mass/volume) 8.9 mg/dL 8.5-10.1 Influenza virus A and B antigen detectio n - 05/21/18 05:30 FLU RESULT NEGATIVE FOR INFLUENZA A AND B ANTIGENS BY IA NRG Capillary blood glucose measurement by g lucometer (mass/volume) - 05/21/18 11:14 Capillary blood glucose measurement by glucometer (mas s/volume) 241 mg/dL 70-110 Serum or plasma troponin i.cardiac measu rement (mass/volume) - 05/21/18 12:20 Serum or plasma troponin i.cardiac measurement (mass/v olume) < ng/mL <0.30 RED CELLS LEUKO REDUCED AS1 - 05/21/18 1 5:00 RED CELLS LEUKO REDUCED AS1 T RANSFUSED 05/21/182052 NR Blood type T Indirect antibody screen pa myron - 05/21/18 15:00 ABO+Rh group AP NRG Transfusion band number [id number] NRG Blood group antibody screen NEGATIVE NR G Capillary blood glucose measurement by g lucometer (mass/volume) - 05/21/18 16:10 Capillary blood glucose measurement by glucometer (mas s/volume) 231 mg/dL 70-110 Bacterial catheter tip culture - 8 17:10 QUANTITY OF GROWTH Rare NRG FTX;REPORTABLE RML SENT SENSITIVITY REPORT 05/26 0 9:05 NRG FREE TEXT ENTRY 2 RML SENT ID REPORT 05/24 16:05 NRG FREE TEXT ENTRY 3 RML PRELIMINARY REPORT SENT 05/22 16:05 NRG Bacterial catheter tip culture [id number] NR RML Sensitivity Panel - 05/21/18 17:10 Oxacillin susceptibility test by minimum inhibitory co ncentration 0.5 NRG Clindamycin susceptibility test by minimum inhibitory concentration <= NRG Erythromycin susceptibility test by minimum inhibitory concentration <= NRG Trimethoprim/sulfamethoxazole susceptibi lity test by minimum inhibitoryconcentration S NRG Vancomycin susceptibility test by minimum inhibitory c oncentration <= NRG Levofloxacin susceptibility test by minimum inhibitory concentration <= NRG Rifampin susceptibility test by minimum inhibitory con centration <= NRG Cefazolin susceptibility test by minimum inhibitory co ncentration <= NRG Linezolid susceptibility test by minimum inhibitory co ncentration 2 NRG Penicillin G susceptibility test by minimum inhibitory concentration >= NRG Minocycline susc CODIE <= NRG Capillary blood glucose measurement by g lucometer (mass/volume) - 05/21/18 19:45 Capillary blood glucose measurement by glucometer (mas s/volume) 222 mg/dL 70-110 Automated blood complete blood count (he mogram) panel - 05/22/18 05:01 Blood leukocytes automated count (number/volume) 5.7 10*3/uL 4.3-11.0 Blood erythrocytes automated count (number/volume) 2.77 10*6/uL 4.35-5.85 Venous blood hemoglobin measurement (mass/volume) 8.4 g/dL 11.5-16.0 Blood hematocrit (volume fraction) 28 % 35-52 Automated erythrocyte mean corpuscular volume 100 [foz_us] 80-99 Automated erythrocyte mean corpuscular h emoglobin (mass per erythrocyte) 30 pg 25-34 Automated erythrocyte mean corpuscular h emoglobin concentration measurement (mass/volume) 30 g/dL 32-36 Automated erythrocyte distribution width ratio 17. 4 % 10.0- 14.5 Automated blood platelet count (count/volume) 122 10*3/uL 130-400 Automated blood platelet mean volume measurement 9.9 [foz_us] 7.4-10.4 Whole blood basic metabolic panel - 01/30 05:01 Serum or plasma sodium measurement (moles/volume) 137 mmol/L 135-145 Serum or plasma potassium measurement (moles/volume) 5.3 mmol/L 3.6-5.0 Serum or plasma chloride measurement (moles/volume) 99 mmol/L 98-107 Carbon dioxide 29 mmol/L 21-32 Serum or plasma anion gap determination (moles/volume) 9 mmol/L 5-14 Serum or plasma urea nitrogen measurement (mass/volume ) 37 mg/dL 7-18 Serum or plasma creatinine measurement (mass/volume) 2.54 mg/dL 0.60-1.30 Serum or plasma urea nitrogen/creatinine mass ratio 15 NRG Serum or plasma creatinine measurement w ith calculation of estimated glomerular filtration rate 19 NRG Serum or plasma glucose measurement (mass/volume) 179 mg/dL 70-105 Serum or plasma calcium measurement (mass/volume) 8.4 mg/dL 8.5-10.1 Magnesium - 05/22/18 05:01 Magnesium 2.5 mg/dL 1.8-2.4 Capillary blood glucose measurement by g lucometer (mass/volume) - 05/22/18 10:23 Capillary blood glucose measurement by glucometer (mas s/volume) 248 mg/dL 70-110 Capillary blood glucose measurement by g lucometer (mass/volume) - 05/22/18 15:25 Capillary blood glucose measurement by glucometer (mas s/volume) 201 mg/dL 70-110 Capillary blood glucose measurement by g lucometer (mass/volume) - 05/22/18 20:47 Capillary blood glucose measurement by glucometer (mas s/volume) 291 mg/dL 70-110 Complete blood count (CBC) with automate d white blood cell (WBC) differential - 05/23/18 05:25 Blood leukocytes automated count (number/volume) 4.9 10*3/uL 4.3-11.0 Blood erythrocytes automated count (number/volume) 2.44 10*6/uL 4.35-5.85 Venous blood hemoglobin measurement (mass/volume) 7.4 g/dL 11.5-16.0 Blood hematocrit (volume fraction) 24 % 35-52 Automated erythrocyte mean corpuscular volume 100 [foz_us] 80-99 Automated erythrocyte mean corpuscular h emoglobin (mass per erythrocyte) 30 pg 25-34 Automated erythrocyte mean corpuscular h emoglobin concentration measurement (mass/volume) 31 g/dL 32-36 Automated erythrocyte distribution width ratio 16. 6 % 10.0- 14.5 Automated blood platelet count (count/volume) 99 1 0*3/uL 130-400 Automated blood platelet mean volume measurement 10.3 [foz_us] 7.4-10.4 Automated blood neutrophils/100 leukocytes 70 % 42-75 Automated blood lymphocytes/100 leukocytes 15 % 12-44 Blood monocytes/100 leukocytes 11 % 0-12 Automated blood eosinophils/100 leukocytes 3 % 0-10 Automated blood basophils/100 leukocytes 0 % 0-10 Blood neutrophils automated count (number/volume) 3.4 10*3 1.8-7.8 Blood lymphocytes automated count (number/volume) 0.8 10*3 1.0-4.0 Blood monocytes automated count (number/volume) 0. 5 10*3 0.0-1.0 Automated eosinophil count 0.2 10*3/uL 0 .0-0.3 Automated blood basophil count (count/volume) 0.0 10*3/uL 0.0-0.1 Comprehensive metabolic panel - 05/23/18 05:25 Serum or plasma sodium measurement (moles/volume) 136 mmol/L 135-145 Serum or plasma potassium measurement (moles/volume) 4.6 mmol/L 3.6-5.0 Serum or plasma chloride measurement (moles/volume) 98 mmol/L 98-107 Carbon dioxide 29 mmol/L 21-32 Serum or plasma anion gap determination (moles/volume) 9 mmol/L 5-14 Serum or plasma urea nitrogen measurement (mass/volume ) 36 mg/dL 7-18 Serum or plasma creatinine measurement (mass/volume) 2.31 mg/dL 0.60-1.30 Serum or plasma urea nitrogen/creatinine mass ratio 16 NRG Serum or plasma creatinine measurement w ith calculation of estimated glomerular filtration rate 22 NRG Serum or plasma glucose measurement (mass/volume) 199 mg/dL 70-105 Serum or plasma calcium measurement (mass/volume) 8.5 mg/dL 8.5-10.1 Serum or plasma total bilirubin measurement (mass/volu me) 0.7 mg/dL 0.1-1.0 Serum or plasma alkaline phosphatase momo surement (enzymatic activity/volume) 44 U/L 40-136 Serum or plasma aspartate aminotransfera se measurement (enzymatic activity/volume) 16 U/L 5-34 Serum or plasma alanine aminotransferase measurement (enzymatic activity/volume) < U/L 0-55 Serum or plasma protein measurement (mass/volume) 5.9 g/dL 6.4-8.2 Serum or plasma albumin measurement (mass/volume) 2.6 g/dL 3.2-4.5 CALCIUM CORRECTED 9.6 mg/dL 8.5-10.1 Magnesium - 05/23/18 05:25 Magnesium 2.3 mg/dL 1.8-2.4 Capillary blood glucose measurement by g lucometer (mass/volume) - 05/23/18 11:46 Capillary blood glucose measurement by glucometer (mas s/volume) 172 mg/dL 70-110 Capillary blood glucose measurement by g lucometer (mass/volume) - 05/23/18 16:00 Capillary blood glucose measurement by glucometer (mas s/volume) 253 mg/dL 70-110 Capillary blood glucose measurement by g lucometer (mass/volume) - 05/23/18 20:24 Capillary blood glucose measurement by glucometer (mas s/volume) 157 mg/dL 70-110 Complete blood count (CBC) with automate d white blood cell (WBC) differential - 05/24/18 05:40 Blood leukocytes automated count (number/volume) 4.6 10*3/uL 4.3-11.0 Blood erythrocytes automated count (number/volume) 2.61 10*6/uL 4.35-5.85 Venous blood hemoglobin measurement (mass/volume) 7.8 g/dL 11.5-16.0 Blood hematocrit (volume fraction) 26 % 35-52 Automated erythrocyte mean corpuscular volume 100 [foz_us] 80-99 Automated erythrocyte mean corpuscular h emoglobin (mass per erythrocyte) 30 pg 25-34 Automated erythrocyte mean corpuscular h emoglobin concentration measurement (mass/volume) 30 g/dL 32-36 Automated erythrocyte distribution width ratio 16. 3 % 10.0- 14.5 Automated blood platelet count (count/volume) 120 10*3/uL 130-400 Automated blood platelet mean volume measurement 9.8 [foz_us] 7.4-10.4 Automated blood neutrophils/100 leukocytes 58 % 42-75 Automated blood lymphocytes/100 leukocytes 24 % 12-44 Blood monocytes/100 leukocytes 11 % 0-12 Automated blood eosinophils/100 leukocytes 7 % 0-10 Automated blood basophils/100 leukocytes 0 % 0-10 Blood neutrophils automated count (number/volume) 2.7 10*3 1.8-7.8 Blood lymphocytes automated count (number/volume) 1.1 10*3 1.0-4.0 Blood monocytes automated count (number/volume) 0. 5 10*3 0.0-1.0 Automated eosinophil count 0.3 10*3/uL 0 .0-0.3 Automated blood basophil count (count/volume) 0.0 10*3/uL 0.0-0.1 Whole blood basic metabolic panel - 05/15 05:40 Serum or plasma sodium measurement (moles/volume) 137 mmol/L 135-145 Serum or plasma potassium measurement (moles/volume) 4.4 mmol/L 3.6-5.0 Serum or plasma chloride measurement (moles/volume) 99 mmol/L 98-107 Carbon dioxide 30 mmol/L 21-32 Serum or plasma anion gap determination (moles/volume) 8 mmol/L 5-14 Serum or plasma urea nitrogen measurement (mass/volume ) 38 mg/dL 7-18 Serum or plasma creatinine measurement (mass/volume) 2.23 mg/dL 0.60-1.30 Serum or plasma urea nitrogen/creatinine mass ratio 17 NRG Serum or plasma creatinine measurement w ith calculation of estimated glomerular filtration rate 22 NRG Serum or plasma glucose measurement (mass/volume) 229 mg/dL 70-105 Serum or plasma calcium measurement (mass/volume) 8.4 mg/dL 8.5-10.1 RED CELLS LEUKO REDUCED AS1 - 05/24/18 0 5:40 RED CELLS LEUKO REDUCED AS1 T RANSFUSED 05/24/18 1427 NRG Blood type T Indirect antibody screen pa myron - 05/24/18 05:40 ABO+Rh group AP NRG Transfusion band number [id number] NRG Blood group antibody screen NEGATIVE NR G Capillary blood glucose measurement by g lucometer (mass/volume) - 05/24/18 05:41 Capillary blood glucose measurement by glucometer (mas s/volume) 234 mg/dL 70-110 Capillary blood glucose measurement by g lucometer (mass/volume) - 05/24/18 11:28 Capillary blood glucose measurement by glucometer (mas s/volume) 237 mg/dL 70-110 Capillary blood glucose measurement by g lucometer (mass/volume) - 05/24/18 15:52 Capillary blood glucose measurement by glucometer (mas s/volume) 239 mg/dL 70-110 Capillary blood glucose measurement by g lucometer (mass/volume) - 12/10/18 20:11 Capillary blood glucose measurement by glucometer (mas s/volume) 345 mg/dL 70-110 Venous blood hemoglobin measurement (mas s/volume) - 05/24/18 20:45 Venous blood hemoglobin measurement (mass/volume) 9.1 g/dL 11.5-16.0 Capillary blood glucose measurement by g lucometer (mass/volume) - 05/25/18 05:28 Capillary blood glucose measurement by glucometer (mas s/volume) 273 mg/dL 70-110 Complete blood count (CBC) with automate d white blood cell (WBC) differential - 05/25/18 05:29 Blood leukocytes automated count (number/volume) 5.6 10*3/uL 4.3-11.0 Blood erythrocytes automated count (number/volume) 2.94 10*6/uL 4.35-5.85 Venous blood hemoglobin measurement (mass/volume) 9.0 g/dL 11.5-16.0 Blood hematocrit (volume fraction) 29 % 35-52 Automated erythrocyte mean corpuscular volume 98 [ foz_us] 80-99 Automated erythrocyte mean corpuscular h emoglobin (mass per erythrocyte) 31 pg 25-34 Automated erythrocyte mean corpuscular h emoglobin concentration measurement (mass/volume) 31 g/dL 32-36 Automated erythrocyte distribution width ratio 15. 4 % 10.0- 14.5 Automated blood platelet count (count/volume) 128 10*3/uL 130-400 Automated blood platelet mean volume measurement 10.1 [foz_us] 7.4-10.4 Automated blood neutrophils/100 leukocytes 64 % 42-75 Automated blood lymphocytes/100 leukocytes 16 % 12-44 Blood monocytes/100 leukocytes 11 % 0-12 Automated blood eosinophils/100 leukocytes 8 % 0-10 Automated blood basophils/100 leukocytes 1 % 0-10 Blood neutrophils automated count (number/volume) 3.6 10*3 1.8-7.8 Blood lymphocytes automated count (number/volume) 0.9 10*3 1.0-4.0 Blood monocytes automated count (number/volume) 0. 6 10*3 0.0-1.0 Automated eosinophil count 0.5 10*3/uL 0 .0-0.3 Automated blood basophil count (count/volume) 0.0 10*3/uL 0.0-0.1 Comprehensive metabolic panel - 05/25/18 05:29 Serum or plasma sodium measurement (moles/volume) 138 mmol/L 135-145 Serum or plasma potassium measurement (moles/volume) 3.6 mmol/L 3.6-5.0 Serum or plasma chloride measurement (moles/volume) 96 mmol/L 98-107 Carbon dioxide 31 mmol/L 21-32 Serum or plasma anion gap determination (moles/volume) 11 mmol/L 5-14 Serum or plasma urea nitrogen measurement (mass/volume ) 34 mg/dL 7-18 Serum or plasma creatinine measurement (mass/volume) 1.86 mg/dL 0.60-1.30 Serum or plasma urea nitrogen/creatinine mass ratio 18 NRG Serum or plasma creatinine measurement w ith calculation of estimated glomerular filtration rate 28 NRG Serum or plasma glucose measurement (mass/volume) 253 mg/dL 70-105 Serum or plasma calcium measurement (mass/volume) 8.8 mg/dL 8.5-10.1 Serum or plasma total bilirubin measurement (mass/volu me) 0.8 mg/dL 0.1-1.0 Serum or plasma alkaline phosphatase momo surement (enzymatic activity/volume) 48 U/L 40-136 Serum or plasma aspartate aminotransfera se measurement (enzymatic activity/volume) 14 U/L 5-34 Serum or plasma alanine aminotransferase measurement (enzymatic activity/volume) 6 U/L 0-55 Serum or plasma protein measurement (mass/volume) 6.6 g/dL 6.4-8.2 Serum or plasma albumin measurement (mass/volume) 2.9 g/dL 3.2-4.5 CALCIUM CORRECTED 9.7 mg/dL 8.5-10.1 Serum or plasma lithium measurement (mol es/volume) - 05/25/18 05:29 BNP level 466.7 pg/mL <100.0 Capillary blood glucose measurement by g lucometer (mass/volume) - 05/25/18 11:43 Capillary blood glucose measurement by glucometer (mas s/volume) 207 mg/dL 70-110 Complete blood count (CBC) with automate d white blood cell (WBC) differential - 05/28/18 14:07 Blood leukocytes automated count (number/volume) 5.5 10*3/uL 4.3-11.0 Blood erythrocytes automated count (number/volume) 2.81 10*6/uL 4.35-5.85 Venous blood hemoglobin measurement (mass/volume) 8.7 g/dL 11.5-16.0 Blood hematocrit (volume fraction) 29 % 35-52 Automated erythrocyte mean corpuscular volume 101 [foz_us] 80-99 Automated erythrocyte mean corpuscular h emoglobin (mass per erythrocyte) 31 pg 25-34 Automated erythrocyte mean corpuscular h emoglobin concentration measurement (mass/volume) 31 g/dL 32-36 Automated erythrocyte distribution width ratio 15. 3 % 10.0- 14.5 Automated blood platelet count (count/volume) 163 10*3/uL 130-400 Automated blood platelet mean volume measurement 10.1 [foz_us] 7.4-10.4 Automated blood neutrophils/100 leukocytes 72 % 42-75 Automated blood lymphocytes/100 leukocytes 15 % 12-44 Blood monocytes/100 leukocytes 7 % 0-12 Automated blood eosinophils/100 leukocytes 6 % 0-10 Automated blood basophils/100 leukocytes 1 % 0-10 Blood neutrophils automated count (number/volume) 4.0 10*3 1.8-7.8 Blood lymphocytes automated count (number/volume) 0.8 10*3 1.0-4.0 Blood monocytes automated count (number/volume) 0. 4 10*3 0.0-1.0 Automated eosinophil count 0.4 10*3/uL 0 .0-0.3 Automated blood basophil count (count/volume) 0.0 10*3/uL 0.0-0.1 Comprehensive metabolic panel - 05/28/18 14:07 Serum or plasma sodium measurement (moles/volume) 140 mmol/L 135-145 Serum or plasma potassium measurement (moles/volume) 4.3 mmol/L 3.6-5.0 Serum or plasma chloride measurement (moles/volume) 95 mmol/L 98-107 Carbon dioxide 37 mmol/L 21-32 Serum or plasma anion gap determination (moles/volume) 8 mmol/L 5-14 Serum or plasma urea nitrogen measurement (mass/volume ) 33 mg/dL 7-18 Serum or plasma creatinine measurement (mass/volume) 1.95 mg/dL 0.60-1.30 Serum or plasma urea nitrogen/creatinine mass ratio 17 NRG Serum or plasma creatinine measurement w ith calculation of estimated glomerular filtration rate 26 NRG Serum or plasma glucose measurement (mass/volume) 219 mg/dL 70-105 Serum or plasma calcium measurement (mass/volume) 9.3 mg/dL 8.5-10.1 Serum or plasma total bilirubin measurement (mass/volu me) 0.7 mg/dL 0.1-1.0 Serum or plasma alkaline phosphatase momo surement (enzymatic activity/volume) 64 U/L 40-136 Serum or plasma aspartate aminotransfera se measurement (enzymatic activity/volume) 17 U/L 5-34 Serum or plasma alanine aminotransferase measurement (enzymatic activity/volume) 8 U/L 0-55 Serum or plasma protein measurement (mass/volume) 7.5 g/dL 6.4-8.2 Serum or plasma albumin measurement (mass/volume) 3.3 g/dL 3.2-4.5 CALCIUM CORRECTED 9.9 mg/dL 8.5-10.1 Complete urinalysis with reflex to cultu re - 05/28/18 15:15 Urine color determination YELLOW NRG Urine clarity determination VERY CLOUDY NRG Urine pH measurement by test strip 5 5-9 Specific gravity of urine by test strip 1.020 1.016-1.022 Urine protein assay by test strip, semi-quantitative 3+ NEGATIVE Urine glucose detection by automated test strip NE GATIVE NEGATIVE Erythrocytes detection in urine sediment by light micr oscopy NEGATIVE NEGATIVE Urine ketones detection by automated test strip NE GATIVE NEGATIVE Urine nitrite detection by test strip NEGATIVE NEGATIVE Urine total bilirubin detection by test strip 1+ NEGATIVE Urine urobilinogen measurement by automated test strip (mass/volume) NORMAL NORMAL Urine leukocyte esterase detection by dipstick 2+ NEGATIVE Automated urine sediment erythrocyte cou nt by microscopy (number/high power field) NONE NRG Automated urine sediment leukocyte count by microscopy (number/high power field) [HPF] NRG Bacteria detection in urine sediment by light microsco py NONE NRG Squamous epithelial cells detection in u rine sediment by light microscopy >50 NRG Crystals detection in urine sediment by light microsco py NONE NRG Casts detection in urine sediment by light microscopy NONE NRG Mucus detection in urine sediment by light microscopy NEGATIVE NRG Complete urinalysis with reflex to culture YES NRG Yeast detection in urine sediment by light microscopy MODERATE NRG Bacterial urine culture - 05/28/18 15:15 Bacterial urine culture [id number] NRG COLONY COUNT 30,000 CFU/ML NRG FTX;REPORTABLE SUSCEPTIBILITY REPORTED 12-16-18,09 05. NRG RML Sensitivity Panel - 05/28/18 15:15 Gentamicin susceptibility test by minimum inhibitory c oncentration <= NRG Trimethoprim/sulfamethoxazole susceptibi lity test by minimum inhibitoryconcentration <= NRG Levofloxacin susceptibility test by minimum inhibitory concentration > NRG Ampicillin susceptibility test by minimum inhibitory c oncentration > NRG Cefazolin susceptibility test by minimum inhibitory co ncentration > NRG Ceftriaxone susceptibility test by minimum inhibitory concentration <= NRG Ciprofloxacin susceptibility test by minimum inhibitor y concentration > NRG Meropenem susceptibility test by minimum inhibitory co ncentration <= NRG Nitrofurantoin susceptibility test by mi nimum inhibitory concentration <= NRG Amoxicillin and clavulanate potassium susc CODIE > NRG Complete blood count (CBC) with automate d white blood cell (WBC) differential - 05/30/18 02:15 Blood leukocytes automated count (number/volume) 8.4 10*3/uL 4.3-11.0 Blood erythrocytes automated count (number/volume) 2.72 10*6/uL 4.35-5.85 Venous blood hemoglobin measurement (mass/volume) 8.4 g/dL 11.5-16.0 Blood hematocrit (volume fraction) 27 % 35-52 Automated erythrocyte mean corpuscular volume 101 [foz_us] 80-99 Automated erythrocyte mean corpuscular h emoglobin (mass per erythrocyte) 31 pg 25-34 Automated erythrocyte mean corpuscular h emoglobin concentration measurement (mass/volume) 31 g/dL 32-36 Automated erythrocyte distribution width ratio 15. 4 % 10.0- 14.5 Automated blood platelet count (count/volume) 176 10*3/uL 130-400 Automated blood platelet mean volume measurement 9.7 [foz_us] 7.4-10.4 Automated blood neutrophils/100 leukocytes 83 % 42-75 Automated blood lymphocytes/100 leukocytes 7 % 12-44 Blood monocytes/100 leukocytes 7 % 0-12 Automated blood eosinophils/100 leukocytes 4 % 0-10 Automated blood basophils/100 leukocytes 0 % 0-10 Blood neutrophils automated count (number/volume) 6.9 10*3 1.8-7.8 Blood lymphocytes automated count (number/volume) 0.6 10*3 1.0-4.0 Blood monocytes automated count (number/volume) 0. 6 10*3 0.0-1.0 Automated eosinophil count 0.3 10*3/uL 0 .0-0.3 Automated blood basophil count (count/volume) 0.0 10*3/uL 0.0-0.1 PT panel in platelet poor plasma by coag ulation assay - 05/30/18 02:15 Prothrombin time (PT) in platelet poor plasma by coagu lation assay 14.8 s 12.2-14.7 INR in platelet poor plasma or blood by coagulation as say 1.2 0.8-1.4 Activated partial thromboplastin time (a PTT) in platelet poor plasma bycoagulation assay - 05/30/18 02:15 Activated partial thromboplastin time (a PTT) in platelet poor plasma bycoagulation assay 28 s 24-35 Comprehensive metabolic panel - 05/30/18 02:15 Serum or plasma sodium measurement (moles/volume) 141 mmol/L 135-145 Serum or plasma potassium measurement (moles/volume) 4.4 mmol/L 3.6-5.0 Serum or plasma chloride measurement (moles/volume) 95 mmol/L 98-107 Carbon dioxide 33 mmol/L 21-32 Serum or plasma anion gap determination (moles/volume) 13 mmol/L 5-14 Serum or plasma urea nitrogen measurement (mass/volume ) 42 mg/dL 7-18 Serum or plasma creatinine measurement (mass/volume) 2.42 mg/dL 0.60-1.30 Serum or plasma urea nitrogen/creatinine mass ratio 17 NRG Serum or plasma creatinine measurement w ith calculation of estimated glomerular filtration rate 20 NRG Serum or plasma glucose measurement (mass/volume) 204 mg/dL 70-105 Serum or plasma calcium measurement (mass/volume) 9.5 mg/dL 8.5-10.1 Serum or plasma total bilirubin measurement (mass/volu me) 0.8 mg/dL 0.1-1.0 Serum or plasma alkaline phosphatase momo surement (enzymatic activity/volume) 57 U/L 40-136 Serum or plasma aspartate aminotransfera se measurement (enzymatic activity/volume) 16 U/L 5-34 Serum or plasma alanine aminotransferase measurement (enzymatic activity/volume) 8 U/L 0-55 Serum or plasma protein measurement (mass/volume) 7.3 g/dL 6.4-8.2 Serum or plasma albumin measurement (mass/volume) 3.3 g/dL 3.2-4.5 CALCIUM CORRECTED 10.1 mg/dL 8.5-10.1 Magnesium - 05/30/18 02:15 Magnesium 2.1 mg/dL 1.8-2.4 Serum or plasma troponin i.cardiac measu rement (mass/volume) - 05/30/18 02:15 Serum or plasma troponin i.cardiac measurement (mass/v olume) < ng/mL <0.30 Complete urinalysis with reflex to cultu re - 05/30/18 02:26 Urine color determination CARLIE NRG Urine clarity determination SLIGHTLY CLOUDY NRG Urine pH measurement by test strip 5 5-9 Specific gravity of urine by test strip 1.015 1.016-1.022 Urine protein assay by test strip, semi-quantitative 2+ NEGATIVE Urine glucose detection by automated test strip NE GATIVE NEGATIVE Erythrocytes detection in urine sediment by light micr oscopy NEGATIVE NEGATIVE Urine ketones detection by automated test strip NE GATIVE NEGATIVE Urine nitrite detection by test strip NEGATIVE NEGATIVE Urine total bilirubin detection by test strip 2+ NEGATIVE Urine urobilinogen measurement by automated test strip (mass/volume) NORMAL NORMAL Urine leukocyte esterase detection by dipstick 1+ NEGATIVE Automated urine sediment erythrocyte cou nt by microscopy (number/high power field) NONE NRG Automated urine sediment leukocyte count by microscopy (number/high power field) [HPF] NRG Bacteria detection in urine sediment by light microsco py TRACE NRG Squamous epithelial cells detection in u rine sediment by light microscopy 10-25 NRG Crystals detection in urine sediment by light microsco py NONE NRG Casts detection in urine sediment by light microscopy PRESENT NRG Mucus detection in urine sediment by light microscopy LARGE NRG Complete urinalysis with reflex to culture NO NRG Hyaline casts detection in urine sediment by light codie roscopy 25-50 NRG Complete blood count (CBC) with automate d white blood cell (WBC) differential - 05/30/18 04:38 Blood leukocytes automated count (number/volume) 9.6 10*3/uL 4.3-11.0 Blood erythrocytes automated count (number/volume) 2.71 10*6/uL 4.35-5.85 Venous blood hemoglobin measurement (mass/volume) 8.3 g/dL 11.5-16.0 Blood hematocrit (volume fraction) 27 % 35-52 Automated erythrocyte mean corpuscular volume 101 [foz_us] 80-99 Automated erythrocyte mean corpuscular h emoglobin (mass per erythrocyte) 31 pg 25-34 Automated erythrocyte mean corpuscular h emoglobin concentration measurement (mass/volume) 30 g/dL 32-36 Automated erythrocyte distribution width ratio 15. 1 % 10.0- 14.5 Automated blood platelet count (count/volume) 184 10*3/uL 130-400 Automated blood platelet mean volume measurement 10.4 [foz_us] 7.4-10.4 Automated blood neutrophils/100 leukocytes 84 % 42-75 Automated blood lymphocytes/100 leukocytes 7 % 12-44 Blood monocytes/100 leukocytes 6 % 0-12 Automated blood eosinophils/100 leukocytes 3 % 0-10 Automated blood basophils/100 leukocytes 0 % 0-10 Blood neutrophils automated count (number/volume) 8.0 10*3 1.8-7.8 Blood lymphocytes automated count (number/volume) 0.6 10*3 1.0-4.0 Blood monocytes automated count (number/volume) 0. 6 10*3 0.0-1.0 Automated eosinophil count 0.3 10*3/uL 0 .0-0.3 Automated blood basophil count (count/volume) 0.0 10*3/uL 0.0-0.1 Comprehensive metabolic panel - 05/30/18 04:38 Serum or plasma sodium measurement (moles/volume) 140 mmol/L 135-145 Serum or plasma potassium measurement (moles/volume) 4.4 mmol/L 3.6-5.0 Serum or plasma chloride measurement (moles/volume) 97 mmol/L 98-107 Carbon dioxide 31 mmol/L 21-32 Serum or plasma anion gap determination (moles/volume) 12 mmol/L 5-14 Serum or plasma urea nitrogen measurement (mass/volume ) 41 mg/dL 7-18 Serum or plasma creatinine measurement (mass/volume) 2.30 mg/dL 0.60-1.30 Serum or plasma urea nitrogen/creatinine mass ratio 18 NRG Serum or plasma creatinine measurement w ith calculation of estimated glomerular filtration rate 22 NRG Serum or plasma glucose measurement (mass/volume) 206 mg/dL 70-105 Serum or plasma calcium measurement (mass/volume) 9.1 mg/dL 8.5-10.1 Serum or plasma total bilirubin measurement (mass/volu me) 0.8 mg/dL 0.1-1.0 Serum or plasma alkaline phosphatase momo surement (enzymatic activity/volume) 59 U/L 40-136 Serum or plasma aspartate aminotransfera se measurement (enzymatic activity/volume) 17 U/L 5-34 Serum or plasma alanine aminotransferase measurement (enzymatic activity/volume) 8 U/L 0-55 Serum or plasma protein measurement (mass/volume) 7.1 g/dL 6.4-8.2 Serum or plasma albumin measurement (mass/volume) 3.2 g/dL 3.2-4.5 CALCIUM CORRECTED 9.7 mg/dL 8.5-10.1 Capillary blood glucose measurement by g lucometer (mass/volume) - 05/30/18 05:27 Capillary blood glucose measurement by glucometer (mas s/volume) 230 mg/dL 70-110 Capillary blood glucose measurement by g lucometer (mass/volume) - 05/30/18 10:53 Capillary blood glucose measurement by glucometer (mas s/volume) 250 mg/dL 70-110 Serum or plasma troponin i.cardiac measu rement (mass/volume) - 05/30/18 12:10 Serum or plasma troponin i.cardiac measurement (mass/v olume) < ng/mL <0.30 Serum or plasma lithium measurement (mol es/volume) - 05/30/18 12:10 BNP level 441.3 pg/mL <100.0 Serum or plasma triglyceride measurement (mass/volume) - 05/30/18 12:10 Serum or plasma triglyceride measurement (mass/volume) 156 mg/dL <150 Complete blood count (CBC) with automate d white blood cell (WBC) differential - 05/30/18 12:16 Blood leukocytes automated count (number/volume) 10.9 10*3/uL 4.3-11.0 Blood erythrocytes automated count (number/volume) 2.71 10*6/uL 4.35-5.85 Venous blood hemoglobin measurement (mass/volume) 8.3 g/dL 11.5-16.0 Blood hematocrit (volume fraction) 28 % 35-52 Automated erythrocyte mean corpuscular volume 103 [foz_us] 80-99 Automated erythrocyte mean corpuscular h emoglobin (mass per erythrocyte) 31 pg 25-34 Automated erythrocyte mean corpuscular h emoglobin concentration measurement (mass/volume) 30 g/dL 32-36 Automated erythrocyte distribution width ratio 15. 6 % 10.0- 14.5 Automated blood platelet count (count/volume) 232 10*3/uL 130-400 Automated blood platelet mean volume measurement 10.2 [foz_us] 7.4-10.4 Automated blood neutrophils/100 leukocytes 86 % 42-75 Automated blood lymphocytes/100 leukocytes 6 % 12-44 Blood monocytes/100 leukocytes 8 % 0-12 Automated blood eosinophils/100 leukocytes 0 % 0-10 Automated blood basophils/100 leukocytes 0 % 0-10 Blood neutrophils automated count (number/volume) 9.4 10*3 1.8-7.8 Blood lymphocytes automated count (number/volume) 0.6 10*3 1.0-4.0 Blood monocytes automated count (number/volume) 0. 8 10*3 0.0-1.0 Automated eosinophil count 0.0 10*3/uL 0 .0-0.3 Automated blood basophil count (count/volume) 0.0 10*3/uL 0.0-0.1 Comprehensive metabolic panel - 05/30/18 12:16 Serum or plasma sodium measurement (moles/volume) 141 mmol/L 135-145 Serum or plasma potassium measurement (moles/volume) 4.9 mmol/L 3.6-5.0 Serum or plasma chloride measurement (moles/volume) 98 mmol/L 98-107 Carbon dioxide 32 mmol/L 21-32 Serum or plasma anion gap determination (moles/volume) 11 mmol/L 5-14 Serum or plasma urea nitrogen measurement (mass/volume ) 42 mg/dL 7-18 Serum or plasma creatinine measurement (mass/volume) 2.56 mg/dL 0.60-1.30 Serum or plasma urea nitrogen/creatinine mass ratio 16 NRG Serum or plasma creatinine measurement w ith calculation of estimated glomerular filtration rate 19 NRG Serum or plasma glucose measurement (mass/volume) 252 mg/dL 70-105 Serum or plasma calcium measurement (mass/volume) 9.0 mg/dL 8.5-10.1 Serum or plasma total bilirubin measurement (mass/volu me) 0.9 mg/dL 0.1-1.0 Serum or plasma alkaline phosphatase momo surement (enzymatic activity/volume) 55 U/L 40-136 Serum or plasma aspartate aminotransfera se measurement (enzymatic activity/volume) 17 U/L 5-34 Serum or plasma alanine aminotransferase measurement (enzymatic activity/volume) 9 U/L 0-55 Serum or plasma protein measurement (mass/volume) 7.3 g/dL 6.4-8.2 Serum or plasma albumin measurement (mass/volume) 3.3 g/dL 3.2-4.5 CALCIUM CORRECTED 9.6 mg/dL 8.5-10.1 Blood manual differential performed dete ction - 05/30/18 12:16 Blood monocytes/100 leukocytes 5 % NRG Manual blood segmented neutrophils/100 leukocytes 86 % NRG Manual blood lymphocytes/100 leukocytes 2 % NRG Manual eosinophils/100 leukocytes in nose 6 % NRG Manual blood basophils/100 leukocytes 1 % NRG Blood macrocytes detection by light microscopy SLI GHT NRG Blood toxic granules detection by light microscopy 1+ NRG Blood dohle body detection by light microscopy MOD ERATE NRG Arterial blood gas measurement - 8 12:22 Blood pCO2 100 mm[Hg] 35-45 Blood pO2 71 mm[Hg] 79-93 Arterial blood bicarbonate measurement (moles/volume) 37 mmol/L 23-27 Arterial blood base excess by calculation 8.6 mmol /L -2.5-2.5 Arterial blood oxygen saturation measurement 94 % 94-100 * Inhaled oxygen flow rate 12 NRG Arterial blood pH measurement with patient temperature correction 7.18 7.37-7.43 Arterial blood carbon dioxide, total measurement (mole s/volume) 40.2 mmol/L 21.0-31.0 Body site L BRACH NRG Assessment of wrist artery patency prior to arterial p uncture YES-POS NRG Setting of ventilation mode NO NR G Measurement of body temperature 96.8 NRG Bacterial blood culture - 05/30/18 14:10 Bacterial blood culture NG NRG Blood lactic acid measurement (moles/vol ume) - 05/30/18 14:30 Blood lactic acid measurement (moles/volume) 1.29 mmol/L 0.50-2.00 Bacterial blood culture - 05/30/18 14:30 Bacterial blood culture NG NRG Sputum Gram stain - 05/30/18 15:15 Sputum Gram stain chains NRG Bacterial sputum culture - 05/30/18 15:1 5 QUANTITY OF GROWTH . NRG Bacterial sputum culture USUAL RESP NRG Capillary blood glucose measurement by g lucometer (mass/volume) - 05/30/18 16:09 Capillary blood glucose measurement by glucometer (mas s/volume) 237 mg/dL 70-110 Arterial blood gas measurement - 8 16:43 Blood pCO2 50 mm[Hg] 35-45 Blood pO2 138 mm[Hg] 79-93 Arterial blood bicarbonate measurement (moles/volume) 33 mmol/L 23-27 Arterial blood base excess by calculation 8.5 mmol /L -2.5-2.5 Arterial blood oxygen saturation measurement 100 % 94-100 * Inhaled oxygen flow rate 70% NRG Arterial blood pH measurement with patient temperature correction 7.43 7.37-7.43 Arterial blood carbon dioxide, total measurement (mole s/volume) 34.8 mmol/L 21.0-31.0 Body site RF NRG Assessment of wrist artery patency prior to arterial p uncture YES-POS NRG Setting of ventilation mode YES NR G Measurement of body temperature 97.2 NRG Capillary blood glucose measurement by g lucometer (mass/volume) - 05/30/18 21:23 Capillary blood glucose measurement by glucometer (mas s/volume) 129 mg/dL 70-110 Complete urinalysis with reflex to cultu re - 05/30/18 21:50 Urine color determination CARLIE NRG Urine clarity determination SLIGHTLY CLOUDY NRG Urine pH measurement by test strip 5 5-9 Specific gravity of urine by test strip 1.015 1.016-1.022 Urine protein assay by test strip, semi-quantitative 2+ NEGATIVE Urine glucose detection by automated test strip NE GATIVE NEGATIVE Erythrocytes detection in urine sediment by light micr oscopy 5+ NEGATIVE Urine ketones detection by automated test strip NE GATIVE NEGATIVE Urine nitrite detection by test strip POSITIVE NEGATIVE Urine total bilirubin detection by test strip 2+ NEGATIVE Urine urobilinogen measurement by automated test strip (mass/volume) 4 mg/dL NORMAL Urine leukocyte esterase detection by dipstick 3+ NEGATIVE Automated urine sediment erythrocyte cou nt by microscopy (number/high power field) [HPF] NRG Automated urine sediment leukocyte count by microscopy (number/high power field) [HPF] NRG Bacteria detection in urine sediment by light microsco py MODERATE NRG Squamous epithelial cells detection in u rine sediment by light microscopy 10-25 NRG Crystals detection in urine sediment by light microsco py NONE NRG Casts detection in urine sediment by light microscopy NONE NRG Mucus detection in urine sediment by light microscopy MODERATE NRG Complete urinalysis with reflex to culture YES NRG Bacterial urine culture - 05/30/18 21:50 Bacterial urine culture [id number] NRG COLONY COUNT 40,000 CFU/ML NRG FTX;REPORTABLE REFER TO PREVIOUS CUALTAURE FOR NRG FREE TEXT ENTRY 2 SUSCEPTIBILITY NRG FREE TEXT ENTRY 3 RML SENT ID REPORT 05/31 16:05 NRG Complete blood count (CBC) with automate d white blood cell (WBC) differential - 05/31/18 03:15 Blood leukocytes automated count (number/volume) 5.2 10*3/uL 4.3-11.0 Blood erythrocytes automated count (number/volume) 2.46 10*6/uL 4.35-5.85 Venous blood hemoglobin measurement (mass/volume) 7.5 g/dL 11.5-16.0 Blood hematocrit (volume fraction) 25 % 35-52 Automated erythrocyte mean corpuscular volume 100 [foz_us] 80-99 Automated erythrocyte mean corpuscular h emoglobin (mass per erythrocyte) 31 pg 25-34 Automated erythrocyte mean corpuscular h emoglobin concentration measurement (mass/volume) 31 g/dL 32-36 Automated erythrocyte distribution width ratio 15. 4 % 10.0- 14.5 Automated blood platelet count (count/volume) 132 10*3/uL 130-400 Automated blood platelet mean volume measurement 9.9 [foz_us] 7.4-10.4 Automated blood neutrophils/100 leukocytes 74 % 42-75 Automated blood lymphocytes/100 leukocytes 12 % 12-44 Blood monocytes/100 leukocytes 10 % 0-12 Automated blood eosinophils/100 leukocytes 3 % 0-10 Automated blood basophils/100 leukocytes 0 % 0-10 Blood neutrophils automated count (number/volume) 3.9 10*3 1.8-7.8 Blood lymphocytes automated count (number/volume) 0.7 10*3 1.0-4.0 Blood monocytes automated count (number/volume) 0. 5 10*3 0.0-1.0 Automated eosinophil count 0.2 10*3/uL 0 .0-0.3 Automated blood basophil count (count/volume) 0.0 10*3/uL 0.0-0.1 Whole blood basic metabolic panel - 05/15 12/30 03:15 Serum or plasma sodium measurement (moles/volume) 143 mmol/L 135-145 Serum or plasma potassium measurement (moles/volume) 3.9 mmol/L 3.6-5.0 Serum or plasma chloride measurement (moles/volume) 101 mmol/L 98-107 Carbon dioxide 29 mmol/L 21-32 Serum or plasma anion gap determination (moles/volume) 13 mmol/L 5-14 Serum or plasma urea nitrogen measurement (mass/volume ) 44 mg/dL 7-18 Serum or plasma creatinine measurement (mass/volume) 2.33 mg/dL 0.60-1.30 Serum or plasma urea nitrogen/creatinine mass ratio 19 NRG Serum or plasma creatinine measurement w ith calculation of estimated glomerular filtration rate 21 NRG Serum or plasma glucose measurement (mass/volume) 86 mg/dL 70-105 Serum or plasma calcium measurement (mass/volume) 9.1 mg/dL 8.5-10.1 Serum or plasma phosphate measurement (m ass/volume) - 05/31/18 03:15 Serum or plasma phosphate measurement (mass/volume) 2.7 mg/dL 2.3-4.7 Magnesium - 05/31/18 03:15 Magnesium 1.9 mg/dL 1.8-2.4 Arterial blood gas measurement - 8 03:57 Blood pCO2 42 mm[Hg] 35-45 Blood pO2 75 mm[Hg] 79-93 Arterial blood bicarbonate measurement (moles/volume) 34 mmol/L 23-27 Arterial blood base excess by calculation 9.8 mmol /L -2.5-2.5 Arterial blood oxygen saturation measurement 97 % 94-100 * Inhaled oxygen flow rate 50% NRG Arterial blood pH measurement with patient temperature correction 7.51 7.37-7.43 Arterial blood carbon dioxide, total measurement (mole s/volume) 34.8 mmol/L 21.0-31.0 Body site RT FEMORAL NRG Assessment of wrist artery patency prior to arterial p uncture ART LINE NRG Setting of ventilation mode YES NR G Measurement of body temperature 98.8 NRG [id number] - 05/31/18 06:00 Cytologic examination of Papanicolaou smear by physici blu SEE FOOTNOTE NRG Sputum Gram stain - 05/31/18 06:00 Sputum Gram stain No organisms seen NRG Mycobacterium species detection by organ ism specific culture - 05/31/18 06:00 QUANTITY OF GROWTH . NRG Mycobacterium species detection by organism specific c ulture SEE REPORT NRG Bacteria identification in bronchial spe cimen by aerobe culture - 05/31/18 06:00 QUANTITY OF GROWTH . NRG Bacteria identification in bronchial specimen by aerob e culture USUAL RESP NRG FTX;REPORTABLE 2,000 CFU/ML NRG C FUNGUS SPUTUM FLUID TISSUE - 05/31/18 06:00 QUANTITY OF GROWTH Rare NRG FTX;REPORTABLE RML REPORTED ID 06/02/18 10:05 NRG C FUNGUS SPUTUM FLUID TISSUE [id number] N RG Arterial blood gas measurement - 8 08:09 Blood pCO2 48 mm[Hg] 35-45 Blood pO2 72 mm[Hg] 79-93 Arterial blood bicarbonate measurement (moles/volume) 33 mmol/L 23-27 Arterial blood base excess by calculation 8.6 mmol /L -2.5-2.5 Arterial blood oxygen saturation measurement 96 % 94-100 * Inhaled oxygen flow rate 50% NRG Arterial blood pH measurement with patient temperature correction 7.45 7.37-7.43 Arterial blood carbon dioxide, total measurement (mole s/volume) 34.2 mmol/L 21.0-31.0 Body site RT GROIN NRG Assessment of wrist artery patency prior to arterial p uncture NA NRG Setting of ventilation mode YES NR G Measurement of body temperature 99.0 NRG Serum or plasma lithium measurement (mol es/volume) - 05/31/18 08:47 BNP level 278.7 pg/mL <100.0 Serum or plasma troponin i.cardiac measu rement (mass/volume) - 05/31/18 08:47 Serum or plasma troponin i.cardiac measurement (mass/v olume) < ng/mL <0.30 Capillary blood glucose measurement by g lucometer (mass/volume) - 05/31/18 11:36 Capillary blood glucose measurement by glucometer (mas s/volume) 112 mg/dL 70-110 Complete blood count (CBC) with automate d white blood cell (WBC) differential - 05/31/18 12:15 Blood leukocytes automated count (number/volume) 7.2 10*3/uL 4.3-11.0 Blood erythrocytes automated count (number/volume) 2.45 10*6/uL 4.35-5.85 Venous blood hemoglobin measurement (mass/volume) 7.5 g/dL 11.5-16.0 Blood hematocrit (volume fraction) 25 % 35-52 Automated erythrocyte mean corpuscular volume 100 [foz_us] 80-99 Automated erythrocyte mean corpuscular h emoglobin (mass per erythrocyte) 31 pg 25-34 Automated erythrocyte mean corpuscular h emoglobin concentration measurement (mass/volume) 31 g/dL 32-36 Automated erythrocyte distribution width ratio 15. 9 % 10.0- 14.5 Automated blood platelet count (count/volume) 153 10*3/uL 130-400 Automated blood platelet mean volume measurement 10.4 [foz_us] 7.4-10.4 Automated blood neutrophils/100 leukocytes 73 % 42-75 Automated blood lymphocytes/100 leukocytes 14 % 12-44 Blood monocytes/100 leukocytes 12 % 0-12 Automated blood eosinophils/100 leukocytes 1 % 0-10 Automated blood basophils/100 leukocytes 0 % 0-10 Blood neutrophils automated count (number/volume) 5.2 10*3 1.8-7.8 Blood lymphocytes automated count (number/volume) 1.0 10*3 1.0-4.0 Blood monocytes automated count (number/volume) 0. 9 10*3 0.0-1.0 Automated eosinophil count 0.1 10*3/uL 0 .0-0.3 Automated blood basophil count (count/volume) 0.0 10*3/uL 0.0-0.1 Comprehensive metabolic panel - 05/31/18 12:15 Serum or plasma sodium measurement (moles/volume) 143 mmol/L 135-145 Serum or plasma potassium measurement (moles/volume) 3.5 mmol/L 3.6-5.0 Serum or plasma chloride measurement (moles/volume) 102 mmol/L 98-107 Carbon dioxide 26 mmol/L 21-32 Serum or plasma anion gap determination (moles/volume) 15 mmol/L 5-14 Serum or plasma urea nitrogen measurement (mass/volume ) 44 mg/dL 7-18 Serum or plasma creatinine measurement (mass/volume) 2.33 mg/dL 0.60-1.30 Serum or plasma urea nitrogen/creatinine mass ratio 19 NRG Serum or plasma creatinine measurement w ith calculation of estimated glomerular filtration rate 21 NRG Serum or plasma glucose measurement (mass/volume) 131 mg/dL 70-105 Serum or plasma calcium measurement (mass/volume) 8.9 mg/dL 8.5-10.1 Serum or plasma total bilirubin measurement (mass/volu me) 0.6 mg/dL 0.1-1.0 Serum or plasma alkaline phosphatase momo surement (enzymatic activity/volume) 55 U/L 40-136 Serum or plasma aspartate aminotransfera se measurement (enzymatic activity/volume) 23 U/L 5-34 Serum or plasma alanine aminotransferase measurement (enzymatic activity/volume) 9 U/L 0-55 Serum or plasma protein measurement (mass/volume) 6.2 g/dL 6.4-8.2 Serum or plasma albumin measurement (mass/volume) 2.8 g/dL 3.2-4.5 CALCIUM CORRECTED 9.9 mg/dL 8.5-10.1 RED CELLS LEUKO REDUCED AS1 - 05/31/18 1 2:15 RED CELLS LEUKO REDUCED AS1 N OT AVAILABLE NRG Blood type T Indirect antibody screen [facility] - 05/31/18 12:15 ABO+Rh group AP NRG Transfusion band number [id number] NRG Blood group antibody screen NEGATIVE NR G Arterial blood gas measurement - 8 14:15 Blood pCO2 44 mm[Hg] 35-45 Blood pO2 92 mm[Hg] 79-93 Arterial blood bicarbonate measurement (moles/volume) 27 mmol/L 23-27 Arterial blood base excess by calculation 3.0 mmol /L -2.5-2.5 Arterial blood oxygen saturation measurement 99 % 94-100 * Inhaled oxygen flow rate 60 NRG Arterial blood pH measurement with patient temperature correction 7.41 7.37-7.43 Arterial blood carbon dioxide, total measurement (mole s/volume) 28.6 mmol/L 21.0-31.0 Body site RFA NRG Assessment of wrist artery patency prior to arterial p uncture YES-POS NRG Setting of ventilation mode YES NR G Measurement of body temperature 99.4 NRG Whole blood hemoglobin and hematocrit [facility] - 05/31/18 16:58 Venous blood hemoglobin measurement (mass/volume) 7.9 g/dL 11.5-16.0 Blood hematocrit (volume fraction) 25 % 35-52 Capillary blood glucose measurement by g lucometer (mass/volume) - 05/31/18 16:58 Capillary blood glucose measurement by glucometer (mas s/volume) 181 mg/dL 70-110 Capillary blood glucose measurement by g lucometer (mass/volume) - 05/31/18 23:09 Capillary blood glucose measurement by glucometer (mas s/volume) 260 mg/dL 70-110 Complete blood count (CBC) with automate d white blood cell (WBC) differential - 06/01/18 03:20 Blood leukocytes automated count (number/volume) 6.3 10*3/uL 4.3-11.0 Blood erythrocytes automated count (number/volume) 2.57 10*6/uL 4.35-5.85 Venous blood hemoglobin measurement (mass/volume) 8.0 g/dL 11.5-16.0 Blood hematocrit (volume fraction) 25 % 35-52 Automated erythrocyte mean corpuscular volume 97 [ foz_us] 80-99 Automated erythrocyte mean corpuscular h emoglobin (mass per erythrocyte) 31 pg 25-34 Automated erythrocyte mean corpuscular h emoglobin concentration measurement (mass/volume) 32 g/dL 32-36 Automated erythrocyte distribution width ratio 16. 2 % 10.0- 14.5 Automated blood platelet count (count/volume) 151 10*3/uL 130-400 Automated blood platelet mean volume measurement 10.1 [foz_us] 7.4-10.4 Automated blood neutrophils/100 leukocytes 69 % 42-75 Automated blood lymphocytes/100 leukocytes 17 % 12-44 Blood monocytes/100 leukocytes 13 % 0-12 Automated blood eosinophils/100 leukocytes 1 % 0-10 Automated blood basophils/100 leukocytes 1 % 0-10 Blood neutrophils automated count (number/volume) 4.3 10*3 1.8-7.8 Blood lymphocytes automated count (number/volume) 1.1 10*3 1.0-4.0 Blood monocytes automated count (number/volume) 0. 8 10*3 0.0-1.0 Automated eosinophil count 0.1 10*3/uL 0 .0-0.3 Automated blood basophil count (count/volume) 0.0 10*3/uL 0.0-0.1 Arterial blood gas measurement - 8 03:20 Blood pCO2 41 mm[Hg] 35-45 Blood pO2 163 mm[Hg] 79-93 Arterial blood bicarbonate measurement (moles/volume) 29 mmol/L 23-27 Arterial blood base excess by calculation 5.8 mmol /L -2.5-2.5 Arterial blood oxygen saturation measurement 100 % 94-100 * Inhaled oxygen flow rate 60% NRG Arterial blood pH measurement with patient temperature correction 7.47 7.37-7.43 Arterial blood carbon dioxide, total measurement (mole s/volume) 30.6 mmol/L 21.0-31.0 Body site FEMORAL ART LINE NRG Assessment of wrist artery patency prior to arterial p uncture ART LINE NRG Setting of ventilation mode YES NR G Measurement of body temperature 99.9 NRG Whole blood basic metabolic panel - 05/15 01/30 03:20 Serum or plasma sodium measurement (moles/volume) 141 mmol/L 135-145 Serum or plasma potassium measurement (moles/volume) 3.4 mmol/L 3.6-5.0 Serum or plasma chloride measurement (moles/volume) 103 mmol/L 98-107 Carbon dioxide 25 mmol/L 21-32 Serum or plasma anion gap determination (moles/volume) 13 mmol/L 5-14 Serum or plasma urea nitrogen measurement (mass/volume ) 40 mg/dL 7-18 Serum or plasma creatinine measurement (mass/volume) 2.22 mg/dL 0.60-1.30 Serum or plasma urea nitrogen/creatinine mass ratio 18 NRG Serum or plasma creatinine measurement w ith calculation of estimated glomerular filtration rate 23 NRG Serum or plasma glucose measurement (mass/volume) 245 mg/dL 70-105 Serum or plasma calcium measurement (mass/volume) 8.3 mg/dL 8.5-10.1 Serum or plasma phosphate measurement (m ass/volume) - 06/01/18 03:20 Serum or plasma phosphate measurement (mass/volume) 2.7 mg/dL 2.3-4.7 Magnesium - 06/01/18 03:20 Magnesium 1.6 mg/dL 1.8-2.4 Capillary blood glucose measurement by g lucometer (mass/volume) - 06/01/18 05:10 Capillary blood glucose measurement by glucometer (mas s/volume) 275 mg/dL 70-110 Capillary blood glucose measurement by g lucometer (mass/volume) - 06/01/18 11:50 Capillary blood glucose measurement by glucometer (mas s/volume) 258 mg/dL 70-110 Whole blood hemoglobin and hematocrit pa myron - 06/01/18 14:18 Venous blood hemoglobin measurement (mass/volume) 7.9 g/dL 11.5-16.0 Blood hematocrit (volume fraction) 25 % 35-52 Arterial blood gas measurement - 8 14:43 Blood pCO2 41 mm[Hg] 35-45 Blood pO2 203 mm[Hg] 79-93 Arterial blood bicarbonate measurement (moles/volume) 28 mmol/L 23-27 Arterial blood base excess by calculation 4.5 mmol /L -2.5-2.5 Arterial blood oxygen saturation measurement 100 % 94-100 * Inhaled oxygen flow rate 75% NRG Arterial blood pH measurement with patient temperature correction 7.45 7.37-7.43 Arterial blood carbon dioxide, total measurement (mole s/volume) 29.7 mmol/L 21.0-31.0 Body site RFA NRG Assessment of wrist artery patency prior to arterial p uncture YES-POS NRG Setting of ventilation mode YES NR G Measurement of body temperature 98 NRG Capillary blood glucose measurement by g lucometer (mass/volume) - 06/18/18 16:54 Capillary blood glucose measurement by glucometer (mas s/volume) 114 mg/dL 70-110 Capillary blood glucose measurement by g lucometer (mass/volume) - 06/18/18 20:30 Capillary blood glucose measurement by glucometer (mas s/volume) 140 mg/dL 70-110 Capillary blood glucose measurement by g lucometer (mass/volume) - 06/19/18 05:15 Capillary blood glucose measurement by glucometer (mas s/volume) 103 mg/dL 70-110 Complete blood count (CBC) with automate d white blood cell (WBC) differential - 06/19/18 07:11 Blood leukocytes automated count (number/volume) 5.3 10*3/uL 4.3-11.0 Blood erythrocytes automated count (number/volume) 2.96 10*6/uL 4.35-5.85 Venous blood hemoglobin measurement (mass/volume) 9.2 g/dL 11.5-16.0 Blood hematocrit (volume fraction) 30 % 35-52 Automated erythrocyte mean corpuscular volume 101 [foz_us] 80-99 Automated erythrocyte mean corpuscular h emoglobin (mass per erythrocyte) 31 pg 25-34 Automated erythrocyte mean corpuscular h emoglobin concentration measurement (mass/volume) 31 g/dL 32-36 Automated erythrocyte distribution width ratio 15. 6 % 10.0- 14.5 Automated blood platelet count (count/volume) 172 10*3/uL 130-400 Automated blood platelet mean volume measurement 10.2 [foz_us] 7.4-10.4 Automated blood neutrophils/100 leukocytes 58 % 42-75 Automated blood lymphocytes/100 leukocytes 20 % 12-44 Blood monocytes/100 leukocytes 13 % 0-12 Automated blood eosinophils/100 leukocytes 9 % 0-10 Automated blood basophils/100 leukocytes 1 % 0-10 Blood neutrophils automated count (number/volume) 3.1 10*3 1.8-7.8 Blood lymphocytes automated count (number/volume) 1.0 10*3 1.0-4.0 Blood monocytes automated count (number/volume) 0. 7 10*3 0.0-1.0 Automated eosinophil count 0.5 10*3/uL 0 .0-0.3 Automated blood basophil count (count/volume) 0.0 10*3/uL 0.0-0.1 Comprehensive metabolic panel - 06/19/18 07:11 Serum or plasma sodium measurement (moles/volume) 141 mmol/L 135-145 Serum or plasma potassium measurement (moles/volume) 3.7 mmol/L 3.6-5.0 Serum or plasma chloride measurement (moles/volume) 93 mmol/L 98-107 Carbon dioxide 35 mmol/L 21-32 Serum or plasma anion gap determination (moles/volume) 13 mmol/L 5-14 Serum or plasma urea nitrogen measurement (mass/volume ) 16 mg/dL 7-18 Serum or plasma creatinine measurement (mass/volume) 1.26 mg/dL 0.60-1.30 Serum or plasma urea nitrogen/creatinine mass ratio 13 NRG Serum or plasma creatinine measurement w ith calculation of estimated glomerular filtration rate 43 NRG Serum or plasma glucose measurement (mass/volume) 110 mg/dL 70-105 Serum or plasma calcium measurement (mass/volume) 9.3 mg/dL 8.5-10.1 Serum or plasma total bilirubin measurement (mass/volu me) 0.7 mg/dL 0.1-1.0 Serum or plasma alkaline phosphatase momo surement (enzymatic activity/volume) 65 U/L 40-136 Serum or plasma aspartate aminotransfera se measurement (enzymatic activity/volume) 33 U/L 5-34 Serum or plasma alanine aminotransferase measurement (enzymatic activity/volume) 13 U/L 0-55 Serum or plasma protein measurement (mass/volume) 7.0 g/dL 6.4-8.2 Serum or plasma albumin measurement (mass/volume) 3.1 g/dL 3.2-4.5 CALCIUM CORRECTED 10.0 mg/dL 8.5-10.1 Serum or plasma ferritin measurement (ma ss/volume) - 06/19/18 07:11 Serum or plasma ferritin measurement (mass/volume) 168.2 % 20.0-177.0 Capillary blood glucose measurement by g lucometer (mass/volume) - 06/19/18 11:58 Capillary blood glucose measurement by glucometer (mas s/volume) 139 mg/dL 70-110 Capillary blood glucose measurement by g lucometer (mass/volume) - 06/19/18 16:15 Capillary blood glucose measurement by glucometer (mas s/volume) 171 mg/dL 70-110 Capillary blood glucose measurement by g lucometer (mass/volume) - 06/19/18 21:05 Capillary blood glucose measurement by glucometer (mas s/volume) 194 mg/dL 70-110 Capillary blood glucose measurement by g lucometer (mass/volume) - 06/20/18 05:28 Capillary blood glucose measurement by glucometer (mas s/volume) 153 mg/dL 70-110 Capillary blood glucose measurement by g lucometer (mass/volume) - 06/20/18 10:21 Capillary blood glucose measurement by glucometer (mas s/volume) 114 mg/dL 70-110 Capillary blood glucose measurement by g lucometer (mass/volume) - 06/20/18 15:34 Capillary blood glucose measurement by glucometer (mas s/volume) 101 mg/dL 70-110 Capillary blood glucose measurement by g lucometer (mass/volume) - 06/21/18 06:27 Capillary blood glucose measurement by glucometer (mas s/volume) 146 mg/dL 70-110 Complete blood count (CBC) with automate d white blood cell (WBC) differential - 06/21/18 06:30 Blood leukocytes automated count (number/volume) 2.7 10*3/uL 4.3-11.0 Blood erythrocytes automated count (number/volume) 2.44 10*6/uL 4.35-5.85 Venous blood hemoglobin measurement (mass/volume) 7.5 g/dL 11.5-16.0 Blood hematocrit (volume fraction) 25 % 35-52 Automated erythrocyte mean corpuscular volume 103 [foz_us] 80-99 Automated erythrocyte mean corpuscular h emoglobin (mass per erythrocyte) 31 pg 25-34 Automated erythrocyte mean corpuscular h emoglobin concentration measurement (mass/volume) 30 g/dL 32-36 Automated erythrocyte distribution width ratio 15. 1 % 10.0- 14.5 Automated blood platelet count (count/volume) 116 10*3/uL 130-400 Automated blood platelet mean volume measurement 10.0 [foz_us] 7.4-10.4 Automated blood neutrophils/100 leukocytes 51 % 42-75 Automated blood lymphocytes/100 leukocytes 28 % 12-44 Blood monocytes/100 leukocytes 11 % 0-12 Automated blood eosinophils/100 leukocytes 10 % 0-10 Automated blood basophils/100 leukocytes 0 % 0-10 Blood neutrophils automated count (number/volume) 1.4 10*3 1.8-7.8 Blood lymphocytes automated count (number/volume) 0.7 10*3 1.0-4.0 Blood monocytes automated count (number/volume) 0. 3 10*3 0.0-1.0 Automated eosinophil count 0.3 10*3/uL 0 .0-0.3 Automated blood basophil count (count/volume) 0.0 10*3/uL 0.0-0.1 Comprehensive metabolic panel - 06/21/18 06:30 Serum or plasma sodium measurement (moles/volume) 140 mmol/L 135-145 Serum or plasma potassium measurement (moles/volume) 4.2 mmol/L 3.6-5.0 Serum or plasma chloride measurement (moles/volume) 94 mmol/L 98-107 Carbon dioxide 37 mmol/L 21-32 Serum or plasma anion gap determination (moles/volume) 9 mmol/L 5-14 Serum or plasma urea nitrogen measurement (mass/volume ) 18 mg/dL 7-18 Serum or plasma creatinine measurement (mass/volume) 1.63 mg/dL 0.60-1.30 Serum or plasma urea nitrogen/creatinine mass ratio 11 NRG Serum or plasma creatinine measurement w ith calculation of estimated glomerular filtration rate 32 NRG Serum or plasma glucose measurement (mass/volume) 138 mg/dL 70-105 Serum or plasma calcium measurement (mass/volume) 8.5 mg/dL 8.5-10.1 Serum or plasma total bilirubin measurement (mass/volu me) 0.5 mg/dL 0.1-1.0 Serum or plasma alkaline phosphatase momo surement (enzymatic activity/volume) 56 U/L 40-136 Serum or plasma aspartate aminotransfera se measurement (enzymatic activity/volume) 25 U/L 5-34 Serum or plasma alanine aminotransferase measurement (enzymatic activity/volume) 7 U/L 0-55 Serum or plasma protein measurement (mass/volume) 6.1 g/dL 6.4-8.2 Serum or plasma albumin measurement (mass/volume) 2.5 g/dL 3.2-4.5 CALCIUM CORRECTED 9.7 mg/dL 8.5-10.1 Whole blood hemoglobin and hematocrit [facility] - 06/21/18 10:52 Venous blood hemoglobin measurement (mass/volume) 8.3 g/dL 11.5-16.0 Blood hematocrit (volume fraction) 28 % 35-52 Serum or plasma lithium measurement (mol es/volume) - 06/21/18 10:52 BNP level 300.7 pg/mL <100.0 RED CELLS LEUKO REDUCED AS1 - 06/21/18 1 0:52 RED CELLS LEUKO REDUCED AS1 T RANSFUSED 06/22/18 1715 [facility] Blood type T Indirect antibody screen [facility] - 06/21/18 10:52 ABO+Rh group AP NRG Transfusion band number [id number] NR Blood group antibody screen NEGATIVE NR G Capillary blood glucose measurement by g lucometer (mass/volume) - 06/21/18 11:28 Capillary blood glucose measurement by glucometer (mas s/volume) 148 mg/dL 70-110 Capillary blood glucose measurement by g lucometer (mass/volume) - 06/21/18 16:53 Capillary blood glucose measurement by glucometer (mas s/volume) 155 mg/dL 70-110 Capillary blood glucose measurement by g lucometer (mass/volume) - 06/21/18 21:05 Capillary blood glucose measurement by glucometer (mas s/volume) 199 mg/dL 70-110 Capillary blood glucose measurement by g lucometer (mass/volume) - 06/22/18 06:01 Capillary blood glucose measurement by glucometer (mas s/volume) 171 mg/dL 70-110 Capillary blood glucose measurement by g lucometer (mass/volume) - 06/22/18 11:29 Capillary blood glucose measurement by glucometer (mas s/volume) 128 mg/dL 70-110 Methicillin resistant Staphylococcus aur eus (MRSA) screening culture - 06/22/18 13:25 Methicillin resistant Staphylococcus aureus (MRSA) scr eening culture NEG NRG Capillary blood glucose measurement by g lucometer (mass/volume) - 06/22/18 16:46 Capillary blood glucose measurement by glucometer (mas s/volume) 116 mg/dL 70-110 Capillary blood glucose measurement by g lucometer (mass/volume) - 06/22/18 20:18 Capillary blood glucose measurement by glucometer (mas s/volume) 157 mg/dL 70-110 Stool occult blood screen - 06/22/18 21: 40 Stool gastrointestinal hemoglobin detection POSITI VE NEGATIVE Whole blood hemoglobin and hematocrit pa myron - 06/22/18 22:20 Venous blood hemoglobin measurement (mass/volume) 8.2 g/dL 11.5-16.0 Blood hematocrit (volume fraction) 28 % 35-52 Capillary blood glucose measurement by g lucometer (mass/volume) - 06/23/18 06:15 Capillary blood glucose measurement by glucometer (mas s/volume) 209 mg/dL 70-110 Capillary blood glucose measurement by g lucometer (mass/volume) - 06/23/18 11:27 Capillary blood glucose measurement by glucometer (mas s/volume) 149 mg/dL 70-110 Complete blood count (CBC) with automate d white blood cell (WBC) differential - 06/23/18 11:47 Blood leukocytes automated count (number/volume) 3.0 10*3/uL 4.3-11.0 Blood erythrocytes automated count (number/volume) 2.67 10*6/uL 4.35-5.85 Venous blood hemoglobin measurement (mass/volume) 8.1 g/dL 11.5-16.0 Blood hematocrit (volume fraction) 27 % 35-52 Automated erythrocyte mean corpuscular volume 99 [ foz_us] 80-99 Automated erythrocyte mean corpuscular h emoglobin (mass per erythrocyte) 30 pg 25-34 Automated erythrocyte mean corpuscular h emoglobin concentration measurement (mass/volume) 31 g/dL 32-36 Automated erythrocyte distribution width ratio 16. 5 % 10.0- 14.5 Automated blood platelet count (count/volume) 129 10*3/uL 130-400 Automated blood platelet mean volume measurement 9.6 [foz_us] 7.4-10.4 Automated blood neutrophils/100 leukocytes 58 % 42-75 Automated blood lymphocytes/100 leukocytes 19 % 12-44 Blood monocytes/100 leukocytes 14 % 0-12 Automated blood eosinophils/100 leukocytes 8 % 0-10 Automated blood basophils/100 leukocytes 1 % 0-10 Blood neutrophils automated count (number/volume) 1.7 10*3 1.8-7.8 Blood lymphocytes automated count (number/volume) 0.6 10*3 1.0-4.0 Blood monocytes automated count (number/volume) 0. 4 10*3 0.0-1.0 Automated eosinophil count 0.3 10*3/uL 0 .0-0.3 Automated blood basophil count (count/volume) 0.0 10*3/uL 0.0-0.1 Comprehensive metabolic panel - 06/23/18 11:47 Serum or plasma sodium measurement (moles/volume) 137 mmol/L 135-145 Serum or plasma potassium measurement (moles/volume) 4.1 mmol/L 3.6-5.0 Serum or plasma chloride measurement (moles/volume) 93 mmol/L 98-107 Carbon dioxide 37 mmol/L 21-32 Serum or plasma anion gap determination (moles/volume) 7 mmol/L 5-14 Serum or plasma urea nitrogen measurement (mass/volume ) 20 mg/dL 7-18 Serum or plasma creatinine measurement (mass/volume) 1.53 mg/dL 0.60-1.30 Serum or plasma urea nitrogen/creatinine mass ratio 13 NRG Serum or plasma creatinine measurement w ith calculation of estimated glomerular filtration rate 35 NRG Serum or plasma glucose measurement (mass/volume) 137 mg/dL 70-105 Serum or plasma calcium measurement (mass/volume) 8.6 mg/dL 8.5-10.1 Serum or plasma total bilirubin measurement (mass/volu me) 0.7 mg/dL 0.1-1.0 Serum or plasma alkaline phosphatase momo surement (enzymatic activity/volume) 58 U/L 40-136 Serum or plasma aspartate aminotransfera se measurement (enzymatic activity/volume) 26 U/L 5-34 Serum or plasma alanine aminotransferase measurement (enzymatic activity/volume) 8 U/L 0-55 Serum or plasma protein measurement (mass/volume) 6.1 g/dL 6.4-8.2 Serum or plasma albumin measurement (mass/volume) 2.7 g/dL 3.2-4.5 CALCIUM CORRECTED 9.6 mg/dL 8.5-10.1 Serum or plasma phosphate measurement (m ass/volume) - 06/23/18 11:47 Serum or plasma phosphate measurement (mass/volume) 3.3 mg/dL 2.3-4.7 Magnesium - 06/23/18 11:47 Magnesium 1.3 mg/dL 1.8-2.4 PT panel in platelet poor plasma by coag ulation assay - 06/23/18 11:47 Prothrombin time (PT) in platelet poor plasma by coagu lation assay 16.1 s 12.2-14.7 INR in platelet poor plasma or blood by coagulation as say 1.3 0.8-1.4 Activated partial thromboplastin time (a PTT) in platelet poor plasma bycoagulation assay - 06/23/18 11:47 Activated partial thromboplastin time (a PTT) in platelet poor plasma bycoagulation assay 31 s 24-35 Serum or plasma lithium measurement (mol es/volume) - 06/23/18 11:47 BNP level 330.5 pg/mL <100.0 THYROID STIMULATING HORMONE - 06/23/18 1 1:47 THYROID STIMULATING HORMONE 8.21 u[iU]/mL 0.35-4.94 Capillary blood glucose measurement by g lucometer (mass/volume) - 06/23/18 16:33 Capillary blood glucose measurement by glucometer (mas s/volume) 213 mg/dL 70-110 Capillary blood glucose measurement by g lucometer (mass/volume) - 06/23/18 21:34 Capillary blood glucose measurement by glucometer (mas s/volume) 166 mg/dL 70-110 Capillary blood glucose measurement by g lucometer (mass/volume) - 06/24/18 05:48 Capillary blood glucose measurement by glucometer (mas s/volume) 142 mg/dL 70-110 Complete blood count (CBC) with automate d white blood cell (WBC) differential - 06/24/18 05:50 Blood leukocytes automated count (number/volume) 2.5 10*3/uL 4.3-11.0 Blood erythrocytes automated count (number/volume) 2.42 10*6/uL 4.35-5.85 Venous blood hemoglobin measurement (mass/volume) 7.4 g/dL 11.5-16.0 Blood hematocrit (volume fraction) 24 % 35-52 Automated erythrocyte mean corpuscular volume 100 [foz_us] 80-99 Automated erythrocyte mean corpuscular h emoglobin (mass per erythrocyte) 31 pg 25-34 Automated erythrocyte mean corpuscular h emoglobin concentration measurement (mass/volume) 31 g/dL 32-36 Automated erythrocyte distribution width ratio 16. 1 % 10.0- 14.5 Automated blood platelet count (count/volume) 119 10*3/uL 130-400 Automated blood platelet mean volume measurement 9.7 [foz_us] 7.4-10.4 Automated blood neutrophils/100 leukocytes 51 % 42-75 Automated blood lymphocytes/100 leukocytes 28 % 12-44 Blood monocytes/100 leukocytes 13 % 0-12 Automated blood eosinophils/100 leukocytes 8 % 0-10 Automated blood basophils/100 leukocytes 0 % 0-10 Blood neutrophils automated count (number/volume) 1.3 10*3 1.8-7.8 Blood lymphocytes automated count (number/volume) 0.7 10*3 1.0-4.0 Blood monocytes automated count (number/volume) 0. 3 10*3 0.0-1.0 Automated eosinophil count 0.2 10*3/uL 0 .0-0.3 Automated blood basophil count (count/volume) 0.0 10*3/uL 0.0-0.1 Capillary blood glucose measurement by g lucometer (mass/volume) - 06/24/18 11:44 Capillary blood glucose measurement by glucometer (mas s/volume) 135 mg/dL 70-110 RED CELLS LEUKO REDUCED AS1 - 06/24/18 1 4:10 RED CELLS LEUKO REDUCED AS1 T RANSFUSED 06/24/18 194 NR Blood type T Indirect antibody screen [facility] myron - 06/24/18 14:10 ABO+Rh group AP NR Transfusion band number [id number] NR Blood group antibody screen NEGATIVE NR G Capillary blood glucose measurement by g lucometer (mass/volume) - 06/24/18 16:55 Capillary blood glucose measurement by glucometer (mas s/volume) 139 mg/dL 70-110 Capillary blood glucose measurement by g lucometer (mass/volume) - 06/24/18 21:41 Capillary blood glucose measurement by glucometer (mas s/volume) 166 mg/dL 70-110 Capillary blood glucose measurement by g lucometer (mass/volume) - 06/25/18 06:19 Capillary blood glucose measurement by glucometer (mas s/volume) 120 mg/dL 70-110 Whole blood basic metabolic panel - 06/15 07/03 10:27 Serum or plasma sodium measurement (moles/volume) 139 mmol/L 135-145 Serum or plasma potassium measurement (moles/volume) 4.2 mmol/L 3.6-5.0 Serum or plasma chloride measurement (moles/volume) 94 mmol/L 98-107 Carbon dioxide 36 mmol/L 21-32 Serum or plasma anion gap determination (moles/volume) 9 mmol/L 5-14 Serum or plasma urea nitrogen measurement (mass/volume ) 19 mg/dL 7-18 Serum or plasma creatinine measurement (mass/volume) 1.44 mg/dL 0.60-1.30 Serum or plasma urea nitrogen/creatinine mass ratio 13 NRG Serum or plasma creatinine measurement w ith calculation of estimated glomerular filtration rate 37 NRG Serum or plasma glucose measurement (mass/volume) 143 mg/dL 70-105 Serum or plasma calcium measurement (mass/volume) 8.9 mg/dL 8.5-10.1 Capillary blood glucose measurement by g lucometer (mass/volume) - 06/25/18 14:01 Capillary blood glucose measurement by glucometer (mas s/volume) 137 mg/dL 70-110 Capillary blood glucose measurement by g lucometer (mass/volume) - 06/25/18 18:17 Capillary blood glucose measurement by glucometer (mas s/volume) 181 mg/dL 70-110 Capillary blood glucose measurement by g lucometer (mass/volume) - 06/25/18 21:47 Capillary blood glucose measurement by glucometer (mas s/volume) 219 mg/dL 70-110 Capillary blood glucose measurement by g lucometer (mass/volume) - 06/26/18 04:32 Capillary blood glucose measurement by glucometer (mas s/volume) 140 mg/dL 70-110 Complete blood count (CBC) with automate d white blood cell (WBC) differential - 06/26/18 06:25 Blood leukocytes automated count (number/volume) 2.7 10*3/uL 4.3-11.0 Blood erythrocytes automated count (number/volume) 2.93 10*6/uL 4.35-5.85 Venous blood hemoglobin measurement (mass/volume) 8.8 g/dL 11.5-16.0 Blood hematocrit (volume fraction) 28 % 35-52 Automated erythrocyte mean corpuscular volume 95 [ foz_us] 80-99 Automated erythrocyte mean corpuscular h emoglobin (mass per erythrocyte) 30 pg 25-34 Automated erythrocyte mean corpuscular h emoglobin concentration measurement (mass/volume) 32 g/dL 32-36 Automated erythrocyte distribution width ratio 18. 6 % 10.0- 14.5 Automated blood platelet count (count/volume) 117 10*3/uL 130-400 Automated blood platelet mean volume measurement 9.7 [foz_us] 7.4-10.4 Automated blood neutrophils/100 leukocytes 56 % 42-75 Automated blood lymphocytes/100 leukocytes 22 % 12-44 Blood monocytes/100 leukocytes 12 % 0-12 Automated blood eosinophils/100 leukocytes 9 % 0-10 Automated blood basophils/100 leukocytes 1 % 0-10 Blood neutrophils automated count (number/volume) 1.5 10*3 1.8-7.8 Blood lymphocytes automated count (number/volume) 0.6 10*3 1.0-4.0 Blood monocytes automated count (number/volume) 0. 3 10*3 0.0-1.0 Automated eosinophil count 0.2 10*3/uL 0 .0-0.3 Automated blood basophil count (count/volume) 0.0 10*3/uL 0.0-0.1 Comprehensive metabolic panel - 06/26/18 06:25 Serum or plasma sodium measurement (moles/volume) 139 mmol/L 135-145 Serum or plasma potassium measurement (moles/volume) 4.1 mmol/L 3.6-5.0 Serum or plasma chloride measurement (moles/volume) 93 mmol/L 98-107 Carbon dioxide 35 mmol/L 21-32 Serum or plasma anion gap determination (moles/volume) 11 mmol/L 5-14 Serum or plasma urea nitrogen measurement (mass/volume ) 19 mg/dL 7-18 Serum or plasma creatinine measurement (mass/volume) 1.42 mg/dL 0.60-1.30 Serum or plasma urea nitrogen/creatinine mass ratio 13 NRG Serum or plasma creatinine measurement w ith calculation of estimated glomerular filtration rate 38 NRG Serum or plasma glucose measurement (mass/volume) 160 mg/dL 70-105 Serum or plasma calcium measurement (mass/volume) 8.6 mg/dL 8.5-10.1 Serum or plasma total bilirubin measurement (mass/volu me) 0.7 mg/dL 0.1-1.0 Serum or plasma alkaline phosphatase momo surement (enzymatic activity/volume) 58 U/L 40-136 Serum or plasma aspartate aminotransfera se measurement (enzymatic activity/volume) 25 U/L 5-34 Serum or plasma alanine aminotransferase measurement (enzymatic activity/volume) 8 U/L 0-55 Serum or plasma protein measurement (mass/volume) 5.7 g/dL 6.4-8.2 Serum or plasma albumin measurement (mass/volume) 2.5 g/dL 3.2-4.5 CALCIUM CORRECTED 9.8 mg/dL 8.5-10.1 Magnesium - 06/26/18 06:25 Magnesium 1.3 mg/dL 1.8-2.4 Capillary blood glucose measurement by g lucometer (mass/volume) - 06/26/18 10:57 Capillary blood glucose measurement by glucometer (mas s/volume) 162 mg/dL 70-110 Capillary blood glucose measurement by g lucometer (mass/volume) - 06/26/18 17:21 Capillary blood glucose measurement by glucometer (mas s/volume) 158 mg/dL 70-110 Capillary blood glucose measurement by g lucometer (mass/volume) - 06/26/18 20:22 Capillary blood glucose measurement by glucometer (mas s/volume) 155 mg/dL 70-110 Capillary blood glucose measurement by g lucometer (mass/volume) - 06/27/18 04:27 Capillary blood glucose measurement by glucometer (mas s/volume) 128 mg/dL 70-110 Capillary blood glucose measurement by g lucometer (mass/volume) - 06/27/18 11:23 Capillary blood glucose measurement by glucometer (mas s/volume) 176 mg/dL 70-110 Capillary blood glucose measurement by g lucometer (mass/volume) - 06/27/18 15:45 Capillary blood glucose measurement by glucometer (mas s/volume) 142 mg/dL 70-110 Capillary blood glucose measurement by g lucometer (mass/volume) - 06/27/18 21:31 Capillary blood glucose measurement by glucometer (mas s/volume) 186 mg/dL 70-110 Capillary blood glucose measurement by g lucometer (mass/volume) - 06/28/18 05:57 Capillary blood glucose measurement by glucometer (mas s/volume) 146 mg/dL 70-110 Complete blood count (CBC) with automate d white blood cell (WBC) differential - 06/28/18 06:00 Blood leukocytes automated count (number/volume) 3.9 10*3/uL 4.3-11.0 Blood erythrocytes automated count (number/volume) 3.01 10*6/uL 4.35-5.85 Venous blood hemoglobin measurement (mass/volume) 8.9 g/dL 11.5-16.0 Blood hematocrit (volume fraction) 29 % 35-52 Automated erythrocyte mean corpuscular volume 96 [ foz_us] 80-99 Automated erythrocyte mean corpuscular h emoglobin (mass per erythrocyte) 30 pg 25-34 Automated erythrocyte mean corpuscular h emoglobin concentration measurement (mass/volume) 31 g/dL 32-36 Automated erythrocyte distribution width ratio 17. 6 % 10.0- 14.5 Automated blood platelet count (count/volume) 134 10*3/uL 130-400 Automated blood platelet mean volume measurement 9.8 [foz_us] 7.4-10.4 Automated blood neutrophils/100 leukocytes 59 % 42-75 Automated blood lymphocytes/100 leukocytes 20 % 12-44 Blood monocytes/100 leukocytes 13 % 0-12 Automated blood eosinophils/100 leukocytes 7 % 0-10 Automated blood basophils/100 leukocytes 1 % 0-10 Blood neutrophils automated count (number/volume) 2.3 10*3 1.8-7.8 Blood lymphocytes automated count (number/volume) 0.8 10*3 1.0-4.0 Blood monocytes automated count (number/volume) 0. 5 10*3 0.0-1.0 Automated eosinophil count 0.3 10*3/uL 0 .0-0.3 Automated blood basophil count (count/volume) 0.0 10*3/uL 0.0-0.1 Comprehensive metabolic panel - 06/28/18 06:00 Serum or plasma sodium measurement (moles/volume) 138 mmol/L 135-145 Serum or plasma potassium measurement (moles/volume) 4.4 mmol/L 3.6-5.0 Serum or plasma chloride measurement (moles/volume) 92 mmol/L 98-107 Carbon dioxide 36 mmol/L 21-32 Serum or plasma anion gap determination (moles/volume) 10 mmol/L 5-14 Serum or plasma urea nitrogen measurement (mass/volume ) 19 mg/dL 7-18 Serum or plasma creatinine measurement (mass/volume) 1.96 mg/dL 0.60-1.30 Serum or plasma urea nitrogen/creatinine mass ratio 10 NRG Serum or plasma creatinine measurement w ith calculation of estimated glomerular filtration rate 26 NRG Serum or plasma glucose measurement (mass/volume) 137 mg/dL 70-105 Serum or plasma calcium measurement (mass/volume) 9.0 mg/dL 8.5-10.1 Serum or plasma total bilirubin measurement (mass/volu me) 0.9 mg/dL 0.1-1.0 Serum or plasma alkaline phosphatase momo surement (enzymatic activity/volume) 60 U/L 40-136 Serum or plasma aspartate aminotransfera se measurement (enzymatic activity/volume) 28 U/L 5-34 Serum or plasma alanine aminotransferase measurement (enzymatic activity/volume) 9 U/L 0-55 Serum or plasma protein measurement (mass/volume) 6.2 g/dL 6.4-8.2 Serum or plasma albumin measurement (mass/volume) 2.8 g/dL 3.2-4.5 CALCIUM CORRECTED 10.0 mg/dL 8.5-10.1 Magnesium - 06/28/18 06:00 Magnesium 1.5 mg/dL 1.8-2.4 Capillary blood glucose measurement by g lucometer (mass/volume) - 06/28/18 10:59 Capillary blood glucose measurement by glucometer (mas s/volume) 128 mg/dL 70-110 Capillary blood glucose measurement by g lucometer (mass/volume) - 06/28/18 15:54 Capillary blood glucose measurement by glucometer (mas s/volume) 139 mg/dL 70-110 Capillary blood glucose measurement by g lucometer (mass/volume) - 06/28/18 20:32 Capillary blood glucose measurement by glucometer (mas s/volume) 266 mg/dL 70-110 Capillary blood glucose measurement by g lucometer (mass/volume) - 06/29/18 05:22 Capillary blood glucose measurement by glucometer (mas s/volume) 283 mg/dL 70-110 Complete blood count (CBC) with automate d white blood cell (WBC) differential - 06/29/18 05:25 Blood leukocytes automated count (number/volume) 3.1 10*3/uL 4.3-11.0 Blood erythrocytes automated count (number/volume) 3.16 10*6/uL 4.35-5.85 Venous blood hemoglobin measurement (mass/volume) 9.2 g/dL 11.5-16.0 Blood hematocrit (volume fraction) 30 % 35-52 Automated erythrocyte mean corpuscular volume 94 [ foz_us] 80-99 Automated erythrocyte mean corpuscular h emoglobin (mass per erythrocyte) 29 pg 25-34 Automated erythrocyte mean corpuscular h emoglobin concentration measurement (mass/volume) 31 g/dL 32-36 Automated erythrocyte distribution width ratio 16. 7 % 10.0- 14.5 Automated blood platelet count (count/volume) 124 10*3/uL 130-400 Automated blood platelet mean volume measurement 10.0 [foz_us] 7.4-10.4 Automated blood neutrophils/100 leukocytes 79 % 42-75 Automated blood lymphocytes/100 leukocytes 14 % 12-44 Blood monocytes/100 leukocytes 7 % 0-12 Automated blood eosinophils/100 leukocytes 0 % 0-10 Automated blood basophils/100 leukocytes 0 % 0-10 Blood neutrophils automated count (number/volume) 2.4 10*3 1.8-7.8 Blood lymphocytes automated count (number/volume) 0.4 10*3 1.0-4.0 Blood monocytes automated count (number/volume) 0. 2 10*3 0.0-1.0 Automated eosinophil count 0.0 10*3/uL 0 .0-0.3 Automated blood basophil count (count/volume) 0.0 10*3/uL 0.0-0.1 Comprehensive metabolic panel - 06/29/18 10:55 Serum or plasma sodium measurement (moles/volume) 135 mmol/L 135-145 Serum or plasma potassium measurement (moles/volume) 4.6 mmol/L 3.6-5.0 Serum or plasma chloride measurement (moles/volume) 91 mmol/L 98-107 Carbon dioxide 34 mmol/L 21-32 Serum or plasma anion gap determination (moles/volume) 10 mmol/L 5-14 Serum or plasma urea nitrogen measurement (mass/volume ) 25 mg/dL 7-18 Serum or plasma creatinine measurement (mass/volume) 2.34 mg/dL 0.60-1.30 Serum or plasma urea nitrogen/creatinine mass ratio 11 NRG Serum or plasma creatinine measurement w ith calculation of estimated glomerular filtration rate 21 NRG Serum or plasma glucose measurement (mass/volume) 201 mg/dL 70-105 Serum or plasma calcium measurement (mass/volume) 8.8 mg/dL 8.5-10.1 Serum or plasma total bilirubin measurement (mass/volu me) 0.7 mg/dL 0.1-1.0 Serum or plasma alkaline phosphatase momo surement (enzymatic activity/volume) 57 U/L 40-136 Serum or plasma aspartate aminotransfera se measurement (enzymatic activity/volume) 26 U/L 5-34 Serum or plasma alanine aminotransferase measurement (enzymatic activity/volume) 11 U/L 0-55 Serum or plasma protein measurement (mass/volume) 6.5 g/dL 6.4-8.2 Serum or plasma albumin measurement (mass/volume) 2.8 g/dL 3.2-4.5 CALCIUM CORRECTED 9.8 mg/dL 8.5-10.1 Capillary blood glucose measurement by g lucometer (mass/volume) - 06/29/18 11:14 Capillary blood glucose measurement by glucometer (mas s/volume) 210 mg/dL 70-110 Capillary blood glucose measurement by g lucometer (mass/volume) - 06/29/18 15:54 Capillary blood glucose measurement by glucometer (mas s/volume) 177 mg/dL 70-110 Capillary blood glucose measurement by g lucometer (mass/volume) - 06/29/18 20:32 Capillary blood glucose measurement by glucometer (mas s/volume) 236 mg/dL 70-110 Capillary blood glucose measurement by g lucometer (mass/volume) - 06/30/18 05:28 Capillary blood glucose measurement by glucometer (mas s/volume) 207 mg/dL 70-110 Complete blood count (CBC) with automate d white blood cell (WBC) differential - 06/30/18 05:30 Blood leukocytes automated count (number/volume) 4.3 10*3/uL 4.3-11.0 Blood erythrocytes automated count (number/volume) 3.11 10*6/uL 4.35-5.85 Venous blood hemoglobin measurement (mass/volume) 9.2 g/dL 11.5-16.0 Blood hematocrit (volume fraction) 29 % 35-52 Automated erythrocyte mean corpuscular volume 94 [ foz_us] 80-99 Automated erythrocyte mean corpuscular h emoglobin (mass per erythrocyte) 30 pg 25-34 Automated erythrocyte mean corpuscular h emoglobin concentration measurement (mass/volume) 31 g/dL 32-36 Automated erythrocyte distribution width ratio 17. 2 % 10.0- 14.5 Automated blood platelet count (count/volume) 137 10*3/uL 130-400 Automated blood platelet mean volume measurement 9.9 [foz_us] 7.4-10.4 Automated blood neutrophils/100 leukocytes 80 % 42-75 Automated blood lymphocytes/100 leukocytes 8 % 12-44 Blood monocytes/100 leukocytes 12 % 0-12 Automated blood eosinophils/100 leukocytes 1 % 0-10 Automated blood basophils/100 leukocytes 0 % 0-10 Blood neutrophils automated count (number/volume) 3.5 10*3 1.8-7.8 Blood lymphocytes automated count (number/volume) 0.4 10*3 1.0-4.0 Blood monocytes automated count (number/volume) 0. 5 10*3 0.0-1.0 Automated eosinophil count 0.0 10*3/uL 0 .0-0.3 Automated blood basophil count (count/volume) 0.0 10*3/uL 0.0-0.1 Comprehensive metabolic panel - 06/30/18 05:30 Serum or plasma sodium measurement (moles/volume) 136 mmol/L 135-145 Serum or plasma potassium measurement (moles/volume) 4.9 mmol/L 3.6-5.0 Serum or plasma chloride measurement (moles/volume) 90 mmol/L 98-107 Carbon dioxide 34 mmol/L 21-32 Serum or plasma anion gap determination (moles/volume) 12 mmol/L 5-14 Serum or plasma urea nitrogen measurement (mass/volume ) 30 mg/dL 7-18 Serum or plasma creatinine measurement (mass/volume) 2.30 mg/dL 0.60-1.30 Serum or plasma urea nitrogen/creatinine mass ratio 13 NRG Serum or plasma creatinine measurement w ith calculation of estimated glomerular filtration rate 22 NRG Serum or plasma glucose measurement (mass/volume) 181 mg/dL 70-105 Serum or plasma calcium measurement (mass/volume) 8.8 mg/dL 8.5-10.1 Serum or plasma total bilirubin measurement (mass/volu me) 0.5 mg/dL 0.1-1.0 Serum or plasma alkaline phosphatase momo surement (enzymatic activity/volume) 63 U/L 40-136 Serum or plasma aspartate aminotransfera se measurement (enzymatic activity/volume) 22 U/L 5-34 Serum or plasma alanine aminotransferase measurement (enzymatic activity/volume) 10 U/L 0-55 Serum or plasma protein measurement (mass/volume) 6.7 g/dL 6.4-8.2 Serum or plasma albumin measurement (mass/volume) 3.0 g/dL 3.2-4.5 CALCIUM CORRECTED 9.6 mg/dL 8.5-10.1 Magnesium - 06/30/18 05:30 Magnesium 1.9 mg/dL 1.8-2.4 Serum or plasma lithium measurement (mol es/volume) - 06/30/18 05:30 BNP level 384.4 pg/mL <100.0 Capillary blood glucose measurement by g lucometer (mass/volume) - 06/30/18 11:21 Capillary blood glucose measurement by glucometer (mas s/volume) 162 mg/dL 70-110 Capillary blood glucose measurement by g lucometer (mass/volume) - 06/30/18 16:15 Capillary blood glucose measurement by glucometer (mas s/volume) 164 mg/dL 70-110 Capillary blood glucose measurement by g lucometer (mass/volume) - 06/30/18 20:24 Capillary blood glucose measurement by glucometer (mas s/volume) 218 mg/dL 70-110 Capillary blood glucose measurement by g lucometer (mass/volume) - 07/01/18 04:34 Capillary blood glucose measurement by glucometer (mas s/volume) 146 mg/dL 70-110 Complete blood count (CBC) with automate d white blood cell (WBC) differential - 07/05/18 18:00 Blood leukocytes automated count (number/volume) 5.1 10*3/uL 4.3-11.0 Blood erythrocytes automated count (number/volume) 3.03 10*6/uL 4.35-5.85 Venous blood hemoglobin measurement (mass/volume) 8.9 g/dL 11.5-16.0 Blood hematocrit (volume fraction) 29 % 35-52 Automated erythrocyte mean corpuscular volume 95 [ foz_us] 80-99 Automated erythrocyte mean corpuscular h emoglobin (mass per erythrocyte) 29 pg 25-34 Automated erythrocyte mean corpuscular h emoglobin concentration measurement (mass/volume) 31 g/dL 32-36 Automated erythrocyte distribution width ratio 16. 6 % 10.0- 14.5 Automated blood platelet count (count/volume) 156 10*3/uL 130-400 Automated blood platelet mean volume measurement 10.3 [foz_us] 7.4-10.4 Automated blood neutrophils/100 leukocytes 71 % 42-75 Automated blood lymphocytes/100 leukocytes 12 % 12-44 Blood monocytes/100 leukocytes 12 % 0-12 Automated blood eosinophils/100 leukocytes 6 % 0-10 Automated blood basophils/100 leukocytes 0 % 0-10 Blood neutrophils automated count (number/volume) 3.6 10*3 1.8-7.8 Blood lymphocytes automated count (number/volume) 0.6 10*3 1.0-4.0 Blood monocytes automated count (number/volume) 0. 6 10*3 0.0-1.0 Automated eosinophil count 0.3 10*3/uL 0 .0-0.3 Automated blood basophil count (count/volume) 0.0 10*3/uL 0.0-0.1 Comprehensive metabolic panel - 07/05/18 18:00 Serum or plasma sodium measurement (moles/volume) 138 mmol/L 135-145 Serum or plasma potassium measurement (moles/volume) 3.9 mmol/L 3.6-5.0 Serum or plasma chloride measurement (moles/volume) 97 mmol/L 98-107 Carbon dioxide 32 mmol/L 21-32 Serum or plasma anion gap determination (moles/volume) 9 mmol/L 5-14 Serum or plasma urea nitrogen measurement (mass/volume ) 14 mg/dL 7-18 Serum or plasma creatinine measurement (mass/volume) 1.15 mg/dL 0.60-1.30 Serum or plasma urea nitrogen/creatinine mass ratio 12 NRG Serum or plasma creatinine measurement w ith calculation of estimated glomerular filtration rate 48 NRG Serum or plasma glucose measurement (mass/volume) 161 mg/dL 70-105 Serum or plasma calcium measurement (mass/volume) 8.9 mg/dL 8.5-10.1 Serum or plasma total bilirubin measurement (mass/volu me) 0.8 mg/dL 0.1-1.0 Serum or plasma alkaline phosphatase momo surement (enzymatic activity/volume) 52 U/L 40-136 Serum or plasma aspartate aminotransfera se measurement (enzymatic activity/volume) 17 U/L 5-34 Serum or plasma alanine aminotransferase measurement (enzymatic activity/volume) 8 U/L 0-55 Serum or plasma protein measurement (mass/volume) 6.6 g/dL 6.4-8.2 Serum or plasma albumin measurement (mass/volume) 2.9 g/dL 3.2-4.5 CALCIUM CORRECTED 9.8 mg/dL 8.5-10.1 Complete blood count (CBC) with automate d white blood cell (WBC) differential - 09/27/18 19:15 Blood leukocytes automated count (number/volume) 4.7 10*3/uL 4.3-11.0 Blood erythrocytes automated count (number/volume) 2.79 10*6/uL 4.35-5.85 Venous blood hemoglobin measurement (mass/volume) 8.3 g/dL 11.5-16.0 Blood hematocrit (volume fraction) 26 % 35-52 Automated erythrocyte mean corpuscular volume 94 [ foz_us] 80-99 Automated erythrocyte mean corpuscular h emoglobin (mass per erythrocyte) 30 pg 25-34 Automated erythrocyte mean corpuscular h emoglobin concentration measurement (mass/volume) 32 g/dL 32-36 Automated erythrocyte distribution width ratio 15. 2 % 10.0- 14.5 Automated blood platelet count (count/volume) 139 10*3/uL 130-400 Automated blood platelet mean volume measurement 10.5 [foz_us] 7.4-10.4 Automated blood neutrophils/100 leukocytes 62 % 42-75 Automated blood lymphocytes/100 leukocytes 19 % 12-44 Blood monocytes/100 leukocytes 12 % 0-12 Automated blood eosinophils/100 leukocytes 6 % 0-10 Automated blood basophils/100 leukocytes 0 % 0-10 Blood neutrophils automated count (number/volume) 2.9 10*3 1.8-7.8 Blood lymphocytes automated count (number/volume) 0.9 10*3 1.0-4.0 Blood monocytes automated count (number/volume) 0. 6 10*3 0.0-1.0 Automated eosinophil count 0.3 10*3/uL 0 .0-0.3 Automated blood basophil count (count/volume) 0.0 10*3/uL 0.0-0.1 Comprehensive metabolic panel - 09/27/18 19:15 Serum or plasma sodium measurement (moles/volume) 139 mmol/L 135-145 Serum or plasma potassium measurement (moles/volume) 4.9 mmol/L 3.6-5.0 Serum or plasma chloride measurement (moles/volume) 108 mmol/L 98-107 Carbon dioxide 21 mmol/L 21-32 Serum or plasma anion gap determination (moles/volume) 10 mmol/L 5-14 Serum or plasma urea nitrogen measurement (mass/volume ) 35 mg/dL 7-18 Serum or plasma creatinine measurement (mass/volume) 2.32 mg/dL 0.60-1.30 Serum or plasma urea nitrogen/creatinine mass ratio 15 NRG Serum or plasma creatinine measurement w ith calculation of estimated glomerular filtration rate 21 NRG Serum or plasma glucose measurement (mass/volume) 139 mg/dL 70-105 Serum or plasma calcium measurement (mass/volume) 9.3 mg/dL 8.5-10.1 Serum or plasma total bilirubin measurement (mass/volu me) 0.7 mg/dL 0.1-1.0 Serum or plasma alkaline phosphatase momo surement (enzymatic activity/volume) 57 U/L 40-136 Serum or plasma aspartate aminotransfera se measurement (enzymatic activity/volume) 17 U/L 5-34 Serum or plasma alanine aminotransferase measurement (enzymatic activity/volume) 11 U/L 0-55 Serum or plasma protein measurement (mass/volume) 6.9 g/dL 6.4-8.2 Serum or plasma albumin measurement (mass/volume) 3.4 g/dL 3.2-4.5 CALCIUM CORRECTED 9.8 mg/dL 8.5-10.1 Magnesium - 09/27/18 19:15 Magnesium 2.7 mg/dL 1.8-2.4 Serum or plasma troponin i.cardiac measu rement (mass/volume) - 09/27/18 19:15 Serum or plasma troponin i.cardiac measurement (mass/v olume) < ng/mL <0.028 Serum or plasma lithium measurement (mol es/volume) - 09/27/18 19:15 BNP level 536.3 pg/mL <100.0 Serum or plasma C reactive protein measu rement (mass/volume) - 09/27/18 19:15 Serum or plasma C reactive protein measurement (mass/v olume) 0.55 mg/dL 0.00-0.50 DIGOXIN - 09/27/18 19:15 DIGOXIN 1.44 ng/mL 0.80-2.00 Whole blood basic metabolic panel - 12/01 14:35 Serum or plasma sodium measurement (moles/volume) 138 mmol/L 135-145 Serum or plasma potassium measurement (moles/volume) 4.6 mmol/L 3.6-5.0 Serum or plasma chloride measurement (moles/volume) 105 mmol/L 98-107 Carbon dioxide 25 mmol/L - Serum or plasma anion gap determination (moles/volume) 8 mmol/L 5-14 Serum or plasma urea nitrogen measurement (mass/volume ) 31 mg/dL 7-18 Serum or plasma creatinine measurement (mass/volume) 2.73 mg/dL 0.60-1.30 Serum or plasma urea nitrogen/creatinine mass ratio 11 NRG Serum or plasma creatinine measurement w ith calculation of estimated glomerular filtration rate 18 NRG Serum or plasma glucose measurement (mass/volume) 145 mg/dL 70-105 Serum or plasma calcium measurement (mass/volume) 9.2 mg/dL 8.5-10.1 Serum heterophile antibody titer - 11/02 15:18 Serum heterophile antibody titer NEGATIVE NEGATIVE Serum or plasma C reactive protein measu rement (mass/volume) - 11/02/18 15:18 Serum or plasma C reactive protein measurement (mass/v olume) 6.08 mg/dL 0.00-0.50 Serum or plasma troponin i.cardiac measu rement (mass/volume) - 11/02/18 15:18 Serum or plasma troponin i.cardiac measurement (mass/v olume) 0.036 ng/mL <0.028 Whole blood basic metabolic panel - 10/14 07/03 15:18 Serum or plasma sodium measurement (moles/volume) 135 mmol/L 135-145 Serum or plasma potassium measurement (moles/volume) 3.7 mmol/L 3.6-5.0 Serum or plasma chloride measurement (moles/volume) 97 mmol/L 98-107 Carbon dioxide 23 mmol/L -32 Serum or plasma anion gap determination (moles/volume) 15 mmol/L 5-14 Serum or plasma urea nitrogen measurement (mass/volume ) 39 mg/dL 7-18 Serum or plasma creatinine measurement (mass/volume) 3.15 mg/dL 0.60-1.30 Serum or plasma urea nitrogen/creatinine mass ratio 12 NRG Serum or plasma creatinine measurement w ith calculation of estimated glomerular filtration rate 15 NRG Serum or plasma glucose measurement (mass/volume) 192 mg/dL 70-105 Serum or plasma calcium measurement (mass/volume) 9.6 mg/dL 8.5-10.1 Blood lactic acid measurement (moles/vol ume) - 11/02/18 16:20 Blood lactic acid measurement (moles/volume) 1.78 mmol/L 0.50-2.00 Bacterial blood culture - 11/02/18 16:20 Bacterial blood culture NG NRG Influenza virus A and B antigen detectio n - 11/02/18 16:43 FLU RESULT NEGATIVE FOR INFLUENZA A AND B ANTIGENS BY IA NRG PT panel in platelet poor plasma by coag ulation assay - 11/02/18 17:24 Prothrombin time (PT) in platelet poor plasma by coagu lation assay 15.8 s 12.2-14.7 INR in platelet poor plasma or blood by coagulation as say 1.2 0.8-1.4 Activated partial thromboplastin time (a PTT) in platelet poor plasma bycoagulation assay - 11/02/18 17:24 Activated partial thromboplastin time (a PTT) in platelet poor plasma bycoagulation assay 33 s 24-35 Bacterial blood culture - 11/02/18 17:24 Bacterial blood culture NG NRG Complete urinalysis with reflex to cultu re - 11/02/18 17:38 Urine color determination YELLOW NRG Urine clarity determination SLIGHTLY CLOUDY NRG Urine pH measurement by test strip 5 5-9 Specific gravity of urine by test strip 1.015 1.016-1.022 Urine protein assay by test strip, semi-quantitative 1+ NEGATIVE Urine glucose detection by automated test strip NE GATIVE NEGATIVE Erythrocytes detection in urine sediment by light micr oscopy 1+ NEGATIVE Urine ketones detection by automated test strip NE GATIVE NEGATIVE Urine nitrite detection by test strip NEGATIVE NEGATIVE Urine total bilirubin detection by test strip NEGA TIVE NEGATIVE Urine urobilinogen measurement by automated test strip (mass/volume) NORMAL NORMAL Urine leukocyte esterase detection by dipstick 3+ NEGATIVE Automated urine sediment erythrocyte cou nt by microscopy (number/high power field) [HPF] NRG Automated urine sediment leukocyte count by microscopy (number/high power field) TNTC NRG Bacteria detection in urine sediment by light microsco py LARGE NRG Squamous epithelial cells detection in u rine sediment by light microscopy 10-25 NRG Crystals detection in urine sediment by light microsco py NONE NRG Casts detection in urine sediment by light microscopy NONE NRG Mucus detection in urine sediment by light microscopy NEGATIVE NRG Complete urinalysis with reflex to culture CULTURE PENDING NRG Bacterial urine culture - 11/02/18 17:38 Bacterial urine culture [id number] NRG COLONY COUNT >100,000/ML NRG FTX;REPORTABLE SUSCEPTIBILITY REPORTED 11-04-18, 10 05. NRG FREE TEXT ENTRY 2 ID REPORTED 11/03/18 16:05 NRG RML Sensitivity Panel - 11/02/18 17:38 Gentamicin susceptibility test by minimum inhibitory c oncentration <= NRG Trimethoprim/sulfamethoxazole susceptibi lity test by minimum inhibitoryconcentration <= NRG Levofloxacin susceptibility test by minimum inhibitory concentration <= NRG Ampicillin susceptibility test by minimum inhibitory c oncentration <= NRG Cefazolin susceptibility test by minimum inhibitory co ncentration <= NRG Ceftriaxone susceptibility test by minimum inhibitory concentration <= NRG Ciprofloxacin susceptibility test by minimum inhibitor y concentration <= NRG Meropenem susceptibility test by minimum inhibitory co ncentration <= NRG Nitrofurantoin susceptibility test by mi nimum inhibitory concentration <= NRG Amoxicillin and clavulanate potassium susc CODIE <= NRG Liver function panel (serum or plasma al k phos, alb, total and direct bili, total protein, ALT, AST) - 11/02/18 20:08 Serum or plasma total bilirubin measurement (mass/volu me) 0.7 mg/dL 0.1-1.0 Serum or plasma alkaline phosphatase momo surement (enzymatic activity/volume) 41 U/L 40-136 Serum or plasma aspartate aminotransfera se measurement (enzymatic activity/volume) 31 U/L 5-34 Serum or plasma alanine aminotransferase measurement (enzymatic activity/volume) 11 U/L 0-55 Serum or plasma protein measurement (mass/volume) 6.2 g/dL 6.4-8.2 Serum or plasma albumin measurement (mass/volume) 3.0 g/dL 3.2-4.5 Bilirubin direct 0.4 mg/dL 0.0-0.3 Serum or plasma indirect bilirubin measurement (mass/v olume) 0.3 mg/dL NRG Serum or plasma troponin i.cardiac measu rement (mass/volume) - 11/02/18 20:08 Serum or plasma troponin i.cardiac measurement (mass/v olume) 0.031 ng/mL <0.028 Magnesium - 11/02/18 20:08 Magnesium 1.6 mg/dL 1.8-2.4 Serum or plasma amylase measurement (enz ymatic activity/volume) - 11/02/18 20:08 Serum or plasma amylase measurement (enzymatic activit y/volume) 43 U/L 25-125 Lipase - 11/02/18 20:08 Lipase 33 U/L 8-78 Complete blood count (CBC) with automate d white blood cell (WBC) differential - 11/03/18 03:15 Blood leukocytes automated count (number/volume) 4.2 10*3/uL 4.3-11.0 Blood erythrocytes automated count (number/volume) 2.45 10*6/uL 4.35-5.85 Venous blood hemoglobin measurement (mass/volume) 7.3 g/dL 11.5-16.0 Blood hematocrit (volume fraction) 23 % 35-52 Automated erythrocyte mean corpuscular volume 92 [ foz_us] 80-99 Automated erythrocyte mean corpuscular h emoglobin (mass per erythrocyte) 30 pg 25-34 Automated erythrocyte mean corpuscular h emoglobin concentration measurement (mass/volume) 32 g/dL 32-36 Automated erythrocyte distribution width ratio 15. 0 % 10.0- 14.5 Automated blood platelet count (count/volume) 120 10*3/uL 130-400 Automated blood platelet mean volume measurement 10.1 [foz_us] 7.4-10.4 Automated blood neutrophils/100 leukocytes 72 % 42-75 Automated blood lymphocytes/100 leukocytes 15 % 12-44 Blood monocytes/100 leukocytes 13 % 0-12 Automated blood eosinophils/100 leukocytes 0 % 0-10 Automated blood basophils/100 leukocytes 0 % 0-10 Blood neutrophils automated count (number/volume) 3.0 10*3 1.8-7.8 Blood lymphocytes automated count (number/volume) 0.6 10*3 1.0-4.0 Blood monocytes automated count (number/volume) 0. 6 10*3 0.0-1.0 Automated eosinophil count 0.0 10*3/uL 0 .0-0.3 Automated blood basophil count (count/volume) 0.0 10*3/uL 0.0-0.1 Comprehensive metabolic panel - 11/03/18 03:15 Serum or plasma sodium measurement (moles/volume) 136 mmol/L 135-145 Serum or plasma potassium measurement (moles/volume) 3.8 mmol/L 3.6-5.0 Serum or plasma chloride measurement (moles/volume) 102 mmol/L 98-107 Carbon dioxide 19 mmol/L 21-32 Serum or plasma anion gap determination (moles/volume) 15 mmol/L 5-14 Serum or plasma urea nitrogen measurement (mass/volume ) 36 mg/dL 7-18 Serum or plasma creatinine measurement (mass/volume) 2.81 mg/dL 0.60-1.30 Serum or plasma urea nitrogen/creatinine mass ratio 13 NRG Serum or plasma creatinine measurement w ith calculation of estimated glomerular filtration rate 17 NRG Serum or plasma glucose measurement (mass/volume) 143 mg/dL 70-105 Serum or plasma calcium measurement (mass/volume) 8.6 mg/dL 8.5-10.1 Serum or plasma total bilirubin measurement (mass/volu me) 0.8 mg/dL 0.1-1.0 Serum or plasma alkaline phosphatase momo surement (enzymatic activity/volume) 45 U/L 40-136 Serum or plasma aspartate aminotransfera se measurement (enzymatic activity/volume) 34 U/L 5-34 Serum or plasma alanine aminotransferase measurement (enzymatic activity/volume) 14 U/L 0-55 Serum or plasma protein measurement (mass/volume) 6.6 g/dL 6.4-8.2 Serum or plasma albumin measurement (mass/volume) 3.1 g/dL 3.2-4.5 CALCIUM CORRECTED 9.3 mg/dL 8.5-10.1 Serum or plasma phosphate measurement (m ass/volume) - 11/03/18 03:15 Serum or plasma phosphate measurement (mass/volume) 2.9 mg/dL 2.3-4.7 Magnesium - 11/03/18 03:15 Magnesium 2.0 mg/dL 1.8-2.4 Serum or plasma troponin i.cardiac measu rement (mass/volume) - 11/03/18 03:15 Serum or plasma troponin i.cardiac measurement (mass/v olume) 0.031 ng/mL <0.028 Methicillin resistant Staphylococcus aur eus (MRSA) screening culture - 11/03/18 04:45 Methicillin resistant Staphylococcus aureus (MRSA) scr eening culture NEG NRG RED CELLS LEUKO REDUCED AS1 - 11/03/18 0 8:00 RED CELLS LEUKO REDUCED AS1 T RANSFUSED 11/03/18 1356 NRG Blood type T Indirect antibody screen pa myron - 11/03/18 08:00 ABO+Rh group AP NRG Transfusion band number [id number] NRG Blood group antibody screen NEGATIVE NR G Complete blood count (CBC) with automate d white blood cell (WBC) differential - 11/04/18 03:08 Blood leukocytes automated count (number/volume) 3.5 10*3/uL 4.3-11.0 Blood erythrocytes automated count (number/volume) 2.48 10*6/uL 4.35-5.85 Venous blood hemoglobin measurement (mass/volume) 7.5 g/dL 11.5-16.0 Blood hematocrit (volume fraction) 23 % 35-52 Automated erythrocyte mean corpuscular volume 91 [ foz_us] 80-99 Automated erythrocyte mean corpuscular h emoglobin (mass per erythrocyte) 30 pg 25-34 Automated erythrocyte mean corpuscular h emoglobin concentration measurement (mass/volume) 33 g/dL 32-36 Automated erythrocyte distribution width ratio 15. 4 % 10.0- 14.5 Automated blood platelet count (count/volume) 105 10*3/uL 130-400 Automated blood platelet mean volume measurement 10.4 [foz_us] 7.4-10.4 Automated blood neutrophils/100 leukocytes 59 % 42-75 Automated blood lymphocytes/100 leukocytes 26 % 12-44 Blood monocytes/100 leukocytes 13 % 0-12 Automated blood eosinophils/100 leukocytes 2 % 0-10 Automated blood basophils/100 leukocytes 1 % 0-10 Blood neutrophils automated count (number/volume) 2.1 10*3 1.8-7.8 Blood lymphocytes automated count (number/volume) 0.9 10*3 1.0-4.0 Blood monocytes automated count (number/volume) 0. 4 10*3 0.0-1.0 Automated eosinophil count 0.1 10*3/uL 0 .0-0.3 Automated blood basophil count (count/volume) 0.0 10*3/uL 0.0-0.1 Whole blood basic metabolic panel - 10/14 08/31 03:08 Serum or plasma sodium measurement (moles/volume) 136 mmol/L 135-145 Serum or plasma potassium measurement (moles/volume) 3.8 mmol/L 3.6-5.0 Serum or plasma chloride measurement (moles/volume) 105 mmol/L 98-107 Carbon dioxide 19 mmol/L 21-32 Serum or plasma anion gap determination (moles/volume) 12 mmol/L 5-14 Serum or plasma urea nitrogen measurement (mass/volume ) 25 mg/dL 7-18 Serum or plasma creatinine measurement (mass/volume) 2.10 mg/dL 0.60-1.30 Serum or plasma urea nitrogen/creatinine mass ratio 12 NRG Serum or plasma creatinine measurement w ith calculation of estimated glomerular filtration rate 24 NRG Serum or plasma glucose measurement (mass/volume) 84 mg/dL 70-105 Serum or plasma calcium measurement (mass/volume) 8.3 mg/dL 8.5-10.1 Serum or plasma phosphate measurement (m ass/volume) - 11/04/18 03:08 Serum or plasma phosphate measurement (mass/volume) 3.2 mg/dL 2.3-4.7 Magnesium - 11/04/18 03:08 Magnesium 1.9 mg/dL 1.8-2.4 Vancomycin trough - 11/04/18 06:55 Vancomycin trough 20.3 ug/mL 10.0-20.0 Capillary blood glucose measurement by g lucometer (mass/volume) - 11/04/18 11:49 Capillary blood glucose measurement by glucometer (mas s/volume) 111 mg/dL 70-110 Capillary blood glucose measurement by g lucometer (mass/volume) - 11/04/18 15:58 Capillary blood glucose measurement by glucometer (mas s/volume) 120 mg/dL 70-110 Capillary blood glucose measurement by g lucometer (mass/volume) - 11/04/18 20:36 Capillary blood glucose measurement by glucometer (mas s/volume) 112 mg/dL 70-110 Capillary blood glucose measurement by g lucometer (mass/volume) - 11/05/18 05:27 Capillary blood glucose measurement by glucometer (mas s/volume) 141 mg/dL 70-110 Complete blood count (CBC) with automate d white blood cell (WBC) differential - 11/05/18 06:03 Blood leukocytes automated count (number/volume) 2.9 10*3/uL 4.3-11.0 Blood erythrocytes automated count (number/volume) 2.38 10*6/uL 4.35-5.85 Venous blood hemoglobin measurement (mass/volume) 7.3 g/dL 11.5-16.0 Blood hematocrit (volume fraction) 22 % 35-52 Automated erythrocyte mean corpuscular volume 92 [ foz_us] 80-99 Automated erythrocyte mean corpuscular h emoglobin (mass per erythrocyte) 31 pg 25-34 Automated erythrocyte mean corpuscular h emoglobin concentration measurement (mass/volume) 33 g/dL 32-36 Automated erythrocyte distribution width ratio 15. 2 % 10.0- 14.5 Automated blood platelet count (count/volume) 105 10*3/uL 130-400 Automated blood platelet mean volume measurement 10.1 [foz_us] 7.4-10.4 Automated blood neutrophils/100 leukocytes 55 % 42-75 Automated blood lymphocytes/100 leukocytes 28 % 12-44 Blood monocytes/100 leukocytes 10 % 0-12 Automated blood eosinophils/100 leukocytes 7 % 0-10 Automated blood basophils/100 leukocytes 0 % 0-10 Blood neutrophils automated count (number/volume) 1.6 10*3 1.8-7.8 Blood lymphocytes automated count (number/volume) 0.8 10*3 1.0-4.0 Blood monocytes automated count (number/volume) 0. 3 10*3 0.0-1.0 Automated eosinophil count 0.2 10*3/uL 0 .0-0.3 Automated blood basophil count (count/volume) 0.0 10*3/uL 0.0-0.1 Whole blood basic metabolic panel - 10/14 10/01 06:03 Serum or plasma sodium measurement (moles/volume) 137 mmol/L 135-145 Serum or plasma potassium measurement (moles/volume) 3.8 mmol/L 3.6-5.0 Serum or plasma chloride measurement (moles/volume) 108 mmol/L 98-107 Carbon dioxide 21 mmol/L 21-32 Serum or plasma anion gap determination (moles/volume) 8 mmol/L 5-14 Serum or plasma urea nitrogen measurement (mass/volume ) 19 mg/dL 7-18 Serum or plasma creatinine measurement (mass/volume) 1.82 mg/dL 0.60-1.30 Serum or plasma urea nitrogen/creatinine mass ratio 10 NRG Serum or plasma creatinine measurement w ith calculation of estimated glomerular filtration rate 28 NRG Serum or plasma glucose measurement (mass/volume) 135 mg/dL 70-105 Serum or plasma calcium measurement (mass/volume) 8.2 mg/dL 8.5-10.1 Serum or plasma phosphate measurement (m ass/volume) - 11/05/18 06:03 Serum or plasma phosphate measurement (mass/volume) 2.9 mg/dL 2.3-4.7 Magnesium - 11/05/18 06:03 Magnesium 1.9 mg/dL 1.8-2.4 Vancomycin trough - 11/05/18 06:20 Vancomycin trough 20.3 ug/mL 10.0-20.0 Capillary blood glucose measurement by g lucometer (mass/volume) - 11/05/18 10:58 Capillary blood glucose measurement by glucometer (mas s/volume) 152 mg/dL 70-110 Capillary blood glucose measurement by g lucometer (mass/volume) - 11/05/18 15:42 Capillary blood glucose measurement by glucometer (mas s/volume) 192 mg/dL 70-110 Capillary blood glucose measurement by g lucometer (mass/volume) - 11/05/18 21:01 Capillary blood glucose measurement by glucometer (mas s/volume) 146 mg/dL 70-110 Capillary blood glucose measurement by g lucometer (mass/volume) - 11/06/18 05:37 Capillary blood glucose measurement by glucometer (mas s/volume) 138 mg/dL 70-110 Complete blood count (CBC) with automate d white blood cell (WBC) differential - 11/06/18 05:50 Blood leukocytes automated count (number/volume) 4.4 10*3/uL 4.3-11.0 Blood erythrocytes automated count (number/volume) 2.59 10*6/uL 4.35-5.85 Venous blood hemoglobin measurement (mass/volume) 7.8 g/dL 11.5-16.0 Blood hematocrit (volume fraction) 24 % 35-52 Automated erythrocyte mean corpuscular volume 92 [ foz_us] 80-99 Automated erythrocyte mean corpuscular h emoglobin (mass per erythrocyte) 30 pg 25-34 Automated erythrocyte mean corpuscular h emoglobin concentration measurement (mass/volume) 33 g/dL 32-36 Automated erythrocyte distribution width ratio 14. 9 % 10.0- 14.5 Automated blood platelet count (count/volume) 131 10*3/uL 130-400 Automated blood platelet mean volume measurement 10.2 [foz_us] 7.4-10.4 Automated blood neutrophils/100 leukocytes 58 % 42-75 Automated blood lymphocytes/100 leukocytes 26 % 12-44 Blood monocytes/100 leukocytes 9 % 0-12 Automated blood eosinophils/100 leukocytes 8 % 0-10 Automated blood basophils/100 leukocytes 1 % 0-10 Blood neutrophils automated count (number/volume) 2.6 10*3 1.8-7.8 Blood lymphocytes automated count (number/volume) 1.1 10*3 1.0-4.0 Blood monocytes automated count (number/volume) 0. 4 10*3 0.0-1.0 Automated eosinophil count 0.3 10*3/uL 0 .0-0.3 Automated blood basophil count (count/volume) 0.0 10*3/uL 0.0-0.1 Whole blood basic metabolic panel - 10/14 10/31 05:50 Serum or plasma sodium measurement (moles/volume) 136 mmol/L 135-145 Serum or plasma potassium measurement (moles/volume) 4.1 mmol/L 3.6-5.0 Serum or plasma chloride measurement (moles/volume) 108 mmol/L 98-107 Carbon dioxide 22 mmol/L 21-32 Serum or plasma anion gap determination (moles/volume) 6 mmol/L 5-14 Serum or plasma urea nitrogen measurement (mass/volume ) 17 mg/dL 7-18 Serum or plasma creatinine measurement (mass/volume) 1.47 mg/dL 0.60-1.30 Serum or plasma urea nitrogen/creatinine mass ratio 12 NRG Serum or plasma creatinine measurement w ith calculation of estimated glomerular filtration rate 36 NRG Serum or plasma glucose measurement (mass/volume) 114 mg/dL 70-105 Serum or plasma calcium measurement (mass/volume) 8.5 mg/dL 8.5-10.1 Serum or plasma phosphate measurement (m ass/volume) - 11/06/18 05:50 Serum or plasma phosphate measurement (mass/volume) 2.4 mg/dL 2.3-4.7 Magnesium - 11/06/18 05:50 Magnesium 1.9 mg/dL 1.8-2.4 Serum or plasma lithium measurement (mol es/volume) - 11/06/18 05:50 BNP level 395.7 pg/mL <100.0 Capillary blood glucose measurement by g lucometer (mass/volume) - 11/06/18 10:57 Capillary blood glucose measurement by glucometer (mas s/volume) 134 mg/dL 70-110 Automated blood complete blood count (he mogram) panel - 12/01/18 13:28 Blood leukocytes automated count (number/volume) 3.2 10*3/uL 4.3-11.0 Blood erythrocytes automated count (number/volume) 2.71 10*6/uL 4.35-5.85 Venous blood hemoglobin measurement (mass/volume) 7.9 g/dL 11.5-16.0 Blood hematocrit (volume fraction) 24 % 35-52 Automated erythrocyte mean corpuscular volume 90 [ foz_us] 80-99 Automated erythrocyte mean corpuscular h emoglobin (mass per erythrocyte) 29 pg 25-34 Automated erythrocyte mean corpuscular h emoglobin concentration measurement (mass/volume) 33 g/dL 32-36 Automated erythrocyte distribution width ratio 18. 6 % 10.0- 14.5 Automated blood platelet count (count/volume) 129 10*3/uL 130-400 Automated blood platelet mean volume measurement 9.9 [foz_us] 7.4-10.4 Comprehensive metabolic panel - 12/01/18 13:28 Serum or plasma sodium measurement (moles/volume) 136 mmol/L 135-145 Serum or plasma potassium measurement (moles/volume) 4.4 mmol/L 3.6-5.0 Serum or plasma chloride measurement (moles/volume) 102 mmol/L 98-107 Carbon dioxide 24 mmol/L 21-32 Serum or plasma anion gap determination (moles/volume) 10 mmol/L 5-14 Serum or plasma urea nitrogen measurement (mass/volume ) 27 mg/dL 7-18 Serum or plasma creatinine measurement (mass/volume) 2.66 mg/dL 0.60-1.30 Serum or plasma urea nitrogen/creatinine mass ratio 10 NRG Serum or plasma creatinine measurement w ith calculation of estimated glomerular filtration rate 18 NRG Serum or plasma glucose measurement (mass/volume) 163 mg/dL 70-105 Serum or plasma calcium measurement (mass/volume) 9.0 mg/dL 8.5-10.1 Serum or plasma total bilirubin measurement (mass/volu me) 0.7 mg/dL 0.1-1.0 Serum or plasma alkaline phosphatase momo surement (enzymatic activity/volume) 55 U/L 40-136 Serum or plasma aspartate aminotransfera se measurement (enzymatic activity/volume) 20 U/L 5-34 Serum or plasma alanine aminotransferase measurement (enzymatic activity/volume) 10 U/L 0-55 Serum or plasma protein measurement (mass/volume) 6.8 g/dL 6.4-8.2 Serum or plasma albumin measurement (mass/volume) 3.4 g/dL 3.2-4.5 CALCIUM CORRECTED 9.5 mg/dL 8.5-10.1 Magnesium - 12/01/18 13:28 Magnesium 2.3 mg/dL 1.8-2.4 Serum or plasma lithium measurement (mol es/volume) - 12/01/18 13:28 BNP level 388.0 pg/mL <100.0 THYROID STIMULATING HORMONE - 12/01/18 1 3:28 THYROID STIMULATING HORMONE 12.31 u[iU]/mL 0.35-4.94 Serum or plasma thyroxine (T4) free jenny urement (mass/volume) - 12/01/18 13:28 Serum or plasma thyroxine (T4) free measurement (mass/ volume) 0.84 ng/dL 0.70-1.48 DIGOXIN - 12/01/18 13:28 DIGOXIN 0.41 ng/mL 0.80-2.00 Complete blood count (CBC) with automate d white blood cell (WBC) differential - 12/20/18 13:02 Blood leukocytes automated count (number/volume) 4.2 10*3/uL 4.3-11.0 Blood erythrocytes automated count (number/volume) 2.71 10*6/uL 4.35-5.85 Venous blood hemoglobin measurement (mass/volume) 8.1 g/dL 11.5-16.0 Blood hematocrit (volume fraction) 25 % 35-52 Automated erythrocyte mean corpuscular volume 92 [ foz_us] 80-99 Automated erythrocyte mean corpuscular h emoglobin (mass per erythrocyte) 30 pg 25-34 Automated erythrocyte mean corpuscular h emoglobin concentration measurement (mass/volume) 33 g/dL 32-36 Automated erythrocyte distribution width ratio 16. 8 % 10.0- 14.5 Automated blood platelet count (count/volume) 148 10*3/uL 130-400 Automated blood platelet mean volume measurement 9.8 [foz_us] 7.4-10.4 Automated blood neutrophils/100 leukocytes 61 % 42-75 Automated blood lymphocytes/100 leukocytes 23 % 12-44 Blood monocytes/100 leukocytes 9 % 0-12 Automated blood eosinophils/100 leukocytes 6 % 0-10 Automated blood basophils/100 leukocytes 1 % 0-10 Blood neutrophils automated count (number/volume) 2.5 10*3 1.8-7.8 Blood lymphocytes automated count (number/volume) 1.0 10*3 1.0-4.0 Blood monocytes automated count (number/volume) 0. 4 10*3 0.0-1.0 Automated eosinophil count 0.3 10*3/uL 0 .0-0.3 Automated blood basophil count (count/volume) 0.0 10*3/uL 0.0-0.1 Complete blood count (CBC) with automate d white blood cell (WBC) differential - 12/27/18 13:45 Blood leukocytes automated count (number/volume) 5.3 10*3/uL 4.3-11.0 Blood erythrocytes automated count (number/volume) 2.66 10*6/uL 4.35-5.85 Venous blood hemoglobin measurement (mass/volume) 8.1 g/dL 11.5-16.0 Blood hematocrit (volume fraction) 25 % 35-52 Automated erythrocyte mean corpuscular volume 93 [ foz_us] 80-99 Automated erythrocyte mean corpuscular h emoglobin (mass per erythrocyte) 31 pg 25-34 Automated erythrocyte mean corpuscular h emoglobin concentration measurement (mass/volume) 33 g/dL 32-36 Automated erythrocyte distribution width ratio 16. 4 % 10.0- 14.5 Automated blood platelet count (count/volume) 150 10*3/uL 130-400 Automated blood platelet mean volume measurement 10.1 [foz_us] 7.4-10.4 Automated blood neutrophils/100 leukocytes 72 % 42-75 Automated blood lymphocytes/100 leukocytes 15 % 12-44 Blood monocytes/100 leukocytes 9 % 0-12 Automated blood eosinophils/100 leukocytes 4 % 0-10 Automated blood basophils/100 leukocytes 1 % 0-10 Blood neutrophils automated count (number/volume) 3.8 10*3 1.8-7.8 Blood lymphocytes automated count (number/volume) 0.8 10*3 1.0-4.0 Blood monocytes automated count (number/volume) 0. 5 10*3 0.0-1.0 Automated eosinophil count 0.2 10*3/uL 0 .0-0.3 Automated blood basophil count (count/volume) 0.0 10*3/uL 0.0-0.1 RED CELLS LEUKO REDUCED AS1 - 12/27/18 1 3:45 RED CELLS LEUKO REDUCED AS1 T RANSFUSED [id number]/27/[id number] NRG Blood type T Indirect antibody screen pa myron - 12/27/18 13:45 WRISTBAND NUMBER [id number] NRG ABO+Rh group AP NRG Blood group antibody screen NEGATIVE NR G Complete blood count (CBC) with automate d white blood cell (WBC) differential - 12/27/18 16:04 Blood leukocytes automated count (number/volume) 4.7 10*3/uL 4.3-11.0 Blood erythrocytes automated count (number/volume) 2.43 10*6/uL 4.35-5.85 Venous blood hemoglobin measurement (mass/volume) 7.4 g/dL 11.5-16.0 Blood hematocrit (volume fraction) 23 % 35-52 Automated erythrocyte mean corpuscular volume 93 [ foz_us] 80-99 Automated erythrocyte mean corpuscular h emoglobin (mass per erythrocyte) 30 pg 25-34 Automated erythrocyte mean corpuscular h emoglobin concentration measurement (mass/volume) 33 g/dL 32-36 Automated erythrocyte distribution width ratio 16. 7 % 10.0- 14.5 Automated blood platelet count (count/volume) 128 10*3/uL 130-400 Automated blood platelet mean volume measurement 10.6 [foz_us] 7.4-10.4 Automated blood neutrophils/100 leukocytes 69 % 42-75 Automated blood lymphocytes/100 leukocytes 18 % 12-44 Blood monocytes/100 leukocytes 9 % 0-12 Automated blood eosinophils/100 leukocytes 3 % 0-10 Automated blood basophils/100 leukocytes 0 % 0-10 Blood neutrophils automated count (number/volume) 3.2 10*3 1.8-7.8 Blood lymphocytes automated count (number/volume) 0.9 10*3 1.0-4.0 Blood monocytes automated count (number/volume) 0. 4 10*3 0.0-1.0 Automated eosinophil count 0.2 10*3/uL 0 .0-0.3 Automated blood basophil count (count/volume) 0.0 10*3/uL 0.0-0.1 Blood lactic acid measurement (moles/vol ume) - 12/27/18 16:04 Blood lactic acid measurement (moles/volume) 2.86 mmol/L 0.50-2.00 PT panel in platelet poor plasma by coag ulation assay - 12/27/18 16:04 Prothrombin time (PT) in platelet poor plasma by coagu lation assay 15.1 s 12.2-14.7 INR in platelet poor plasma or blood by coagulation as say 1.1 0.8-1.4 Activated partial thromboplastin time (a PTT) in platelet poor plasma bycoagulation assay - 12/27/18 16:04 Activated partial thromboplastin time (a PTT) in platelet poor plasma bycoagulation assay 30 s 24-35 Comprehensive metabolic panel - 12/27/18 16:04 Serum or plasma sodium measurement (moles/volume) 128 mmol/L 135-145 Serum or plasma potassium measurement (moles/volume) 5.7 mmol/L 3.6-5.0 Serum or plasma chloride measurement (moles/volume) 98 mmol/L 98-107 Carbon dioxide 20 mmol/L 21-32 Serum or plasma anion gap determination (moles/volume) 10 mmol/L 5-14 Serum or plasma urea nitrogen measurement (mass/volume ) 36 mg/dL 7-18 Serum or plasma creatinine measurement (mass/volume) 2.91 mg/dL 0.60-1.30 Serum or plasma urea nitrogen/creatinine mass ratio 12 NRG Serum or plasma creatinine measurement w ith calculation of estimated glomerular filtration rate 16 NRG Serum or plasma glucose measurement (mass/volume) 690 mg/dL 70-105 Serum or plasma calcium measurement (mass/volume) 8.9 mg/dL 8.5-10.1 Serum or plasma total bilirubin measurement (mass/volu me) 0.5 mg/dL 0.1-1.0 Serum or plasma alkaline phosphatase momo surement (enzymatic activity/volume) 61 U/L 40-136 Serum or plasma aspartate aminotransfera se measurement (enzymatic activity/volume) 18 U/L 5-34 Serum or plasma alanine aminotransferase measurement (enzymatic activity/volume) 9 U/L 0-55 Serum or plasma protein measurement (mass/volume) 6.4 g/dL 6.4-8.2 Serum or plasma albumin measurement (mass/volume) 3.2 g/dL 3.2-4.5 CALCIUM CORRECTED 9.5 mg/dL 8.5-10.1 Serum or plasma troponin i.cardiac measu rement (mass/volume) - 12/27/18 16:04 Serum or plasma troponin i.cardiac measurement (mass/v olume) < ng/mL <0.028 Bacterial blood culture - 12/27/18 16:04 Bacterial blood culture NG NRG Bacterial blood culture - 12/27/18 16:04 Bacterial blood culture NG NRG Serum or plasma lithium measurement (mol es/volume) - 12/27/18 16:07 BNP PT 419.2 pg/mL <100.0 Arterial blood gas measurement - 9 16:54 Blood pCO2 38 mm[Hg] 35-45 Blood pO2 72 mm[Hg] 79-93 Arterial blood bicarbonate measurement (moles/volume) 23 mmol/L 23-27 Arterial blood base excess by calculation -1.1 mmo l/L -2.5-2.5 Arterial blood oxygen saturation measurement 97 % 94-100 * Inhaled oxygen flow rate UNKNOWN NRG Arterial blood pH measurement with patient temperature correction 7.40 7.37-7.43 Arterial blood carbon dioxide, total measurement (mole s/volume) 24.4 mmol/L 21.0-31.0 Body site R RAD NRG Assessment of wrist artery patency prior to arterial p uncture YES-POS NRG Setting of ventilation mode NA NR G Measurement of body temperature 97.6 NRG Complete urinalysis with reflex to cultu re - 12/27/18 17:10 Urine color determination YELLOW NRG Urine clarity determination VERY CLOUDY NRG Urine pH measurement by test strip 6 5-9 Specific gravity of urine by test strip 1.015 1.016-1.022 Urine protein assay by test strip, semi-quantitative 1+ NEGATIVE Urine glucose detection by automated test strip 4+ NEGATIVE Erythrocytes detection in urine sediment by light micr oscopy 1+ NEGATIVE Urine ketones detection by automated test strip NE GATIVE NEGATIVE Urine nitrite detection by test strip NEGATIVE NEGATIVE Urine total bilirubin detection by test strip NEGA TIVE NEGATIVE Urine urobilinogen measurement by automated test strip (mass/volume) NORMAL NORMAL Urine leukocyte esterase detection by dipstick 2+ NEGATIVE Automated urine sediment erythrocyte cou nt by microscopy (number/high power field) [HPF] NRG Automated urine sediment leukocyte count by microscopy (number/high power field) [HPF] NRG Bacteria detection in urine sediment by light microsco py LARGE NRG Squamous epithelial cells detection in u rine sediment by light microscopy 5-10 NRG Crystals detection in urine sediment by light microsco py NONE NRG Casts detection in urine sediment by light microscopy NONE NRG Mucus detection in urine sediment by light microscopy NEGATIVE NRG Complete urinalysis with reflex to culture CULTURE PENDING NRG Bacterial urine culture - 12/27/18 17:10 Bacterial urine culture [id number] NRG COLONY COUNT >100,000/ML NRG FTX;REPORTABLE SUSCEPTIBILITY REPORTED 12/29/18 11: 00 NRG FREE TEXT ENTRY 2 ID REPORTED 12/29/18 7:25 NRG Dirithromycin susceptibility test by dis k diffusion - 12/27/18 17:10 Gentamicin susceptibility test by minimum inhibitory c oncentration <= NRG Trimethoprim/sulfamethoxazole susceptibi lity test by minimum inhibitoryconcentration <= NRG Levofloxacin susceptibility test by minimum inhibitory concentration <= NRG Ampicillin susceptibility test by minimum inhibitory c oncentration <= NRG Cefazolin susceptibility test by minimum inhibitory co ncentration <= NRG Ceftriaxone susceptibility test by minimum inhibitory concentration <= NRG Ciprofloxacin susceptibility test by minimum inhibitor y concentration <= NRG Meropenem susceptibility test by minimum inhibitory co ncentration <= NRG Nitrofurantoin susceptibility test by mi nimum inhibitory concentration <= NRG Amoxicillin and clavulanate potassium susc CODIE <= NRG Capillary blood glucose measurement by g lucometer (mass/volume) - 12/27/18 18:42 Capillary blood glucose measurement by glucometer (mas s/volume) 528 mg/dL 70-110 Capillary blood glucose measurement by g lucometer (mass/volume) - 12/27/18 20:14 Capillary blood glucose measurement by glucometer (mas s/volume) 436 mg/dL 70-110 Serum or plasma lactate measurement (mol es/volume) - 12/27/18 20:17 Serum or plasma lactate measurement (moles/volume) 1.62 mmol/L 0.50-2.00 Whole blood basic metabolic panel - 12/13 10/31 20:27 Serum or plasma sodium measurement (moles/volume) 132 mmol/L 135-145 Serum or plasma potassium measurement (moles/volume) 4.3 mmol/L 3.6-5.0 Serum or plasma chloride measurement (moles/volume) 100 mmol/L 98-107 Carbon dioxide 24 mmol/L -32 Serum or plasma anion gap determination (moles/volume) 8 mmol/L 5-14 Serum or plasma urea nitrogen measurement (mass/volume ) 36 mg/dL 7-18 Serum or plasma creatinine measurement (mass/volume) 2.88 mg/dL 0.60-1.30 Serum or plasma urea nitrogen/creatinine mass ratio 13 NRG Serum or plasma creatinine measurement w ith calculation of estimated glomerular filtration rate 17 NRG Serum or plasma glucose measurement (mass/volume) 381 mg/dL 70-105 Serum or plasma calcium measurement (mass/volume) 9.1 mg/dL 8.5-10.1 Hemoglobin A1c - 12/27/18 20:27 Blood hemoglobin A1C measurement (mass/volume) 8.9 % 4.0-5.6 MEAN BLOOD GLUCOSE 209 % <=126 Capillary blood glucose measurement by g lucometer (mass/volume) - 12/27/18 21:05 Capillary blood glucose measurement by glucometer (mas s/volume) 361 mg/dL 70-110 Methicillin resistant Staphylococcus aur eus (MRSA) screening culture - 12/27/18 21:24 Methicillin resistant Staphylococcus aureus (MRSA) scr eening culture NEG NRG Capillary blood glucose measurement by g lucometer (mass/volume) - 12/27/18 22:09 Capillary blood glucose measurement by glucometer (mas s/volume) 171 mg/dL 70-110 Whole blood basic metabolic panel - 12/13 10/31 22:23 Serum or plasma sodium measurement (moles/volume) 132 mmol/L 135-145 Serum or plasma potassium measurement (moles/volume) 4.3 mmol/L 3.6-5.0 Serum or plasma chloride measurement (moles/volume) 101 mmol/L 98-107 Carbon dioxide 22 mmol/L -32 Serum or plasma anion gap determination (moles/volume) 9 mmol/L 5-14 Serum or plasma urea nitrogen measurement (mass/volume ) 35 mg/dL 7-18 Serum or plasma creatinine measurement (mass/volume) 2.88 mg/dL 0.60-1.30 Serum or plasma urea nitrogen/creatinine mass ratio 12 NRG Serum or plasma creatinine measurement w ith calculation of estimated glomerular filtration rate 17 NRG Serum or plasma glucose measurement (mass/volume) 393 mg/dL 70-105 Serum or plasma calcium measurement (mass/volume) 8.8 mg/dL 8.5-10.1 Serum or plasma troponin i.cardiac measu rement (mass/volume) - 12/27/18 22:23 Serum or plasma troponin i.cardiac measurement (mass/v olume) < ng/mL <0.028 Capillary blood glucose measurement by g lucometer (mass/volume) - 12/27/18 23:03 Capillary blood glucose measurement by glucometer (mas s/volume) 406 mg/dL 70-110 Capillary blood glucose measurement by g lucometer (mass/volume) - 12/28/18 00:05 Capillary blood glucose measurement by glucometer (mas s/volume) 362 mg/dL 70-110 Capillary blood glucose measurement by g lucometer (mass/volume) - 12/28/18 01:01 Capillary blood glucose measurement by glucometer (mas s/volume) 333 mg/dL 70-110 Capillary blood glucose measurement by g lucometer (mass/volume) - 12/28/18 02:04 Capillary blood glucose measurement by glucometer (mas s/volume) 297 mg/dL 70-110 Capillary blood glucose measurement by g lucometer (mass/volume) - 12/28/18 03:15 Capillary blood glucose measurement by glucometer (mas s/volume) 262 mg/dL 70-110 Complete blood count (CBC) with automate d white blood cell (WBC) differential - 12/28/18 03:16 Blood leukocytes automated count (number/volume) 4.4 10*3/uL 4.3-11.0 Blood erythrocytes automated count (number/volume) 2.71 10*6/uL 4.35-5.85 Venous blood hemoglobin measurement (mass/volume) 8.3 g/dL 11.5-16.0 Blood hematocrit (volume fraction) 25 % 35-52 Automated erythrocyte mean corpuscular volume 91 [ foz_us] 80-99 Automated erythrocyte mean corpuscular h emoglobin (mass per erythrocyte) 31 pg 25-34 Automated erythrocyte mean corpuscular h emoglobin concentration measurement (mass/volume) 34 g/dL 32-36 Automated erythrocyte distribution width ratio 17. 4 % 10.0- 14.5 Automated blood platelet count (count/volume) 114 10*3/uL 130-400 Automated blood platelet mean volume measurement 10.0 [foz_us] 7.4-10.4 Automated blood neutrophils/100 leukocytes 61 % 42-75 Automated blood lymphocytes/100 leukocytes 23 % 12-44 Blood monocytes/100 leukocytes 10 % 0-12 Automated blood eosinophils/100 leukocytes 5 % 0-10 Automated blood basophils/100 leukocytes 1 % 0-10 Blood neutrophils automated count (number/volume) 2.7 10*3 1.8-7.8 Blood lymphocytes automated count (number/volume) 1.0 10*3 1.0-4.0 Blood monocytes automated count (number/volume) 0. 5 10*3 0.0-1.0 Automated eosinophil count 0.2 10*3/uL 0 .0-0.3 Automated blood basophil count (count/volume) 0.0 10*3/uL 0.0-0.1 Comprehensive metabolic panel - 12/28/18 03:16 Serum or plasma sodium measurement (moles/volume) 133 mmol/L 135-145 Serum or plasma potassium measurement (moles/volume) 4.5 mmol/L 3.6-5.0 Serum or plasma chloride measurement (moles/volume) 102 mmol/L 98-107 Carbon dioxide 22 mmol/L 21-32 Serum or plasma anion gap determination (moles/volume) 9 mmol/L 5-14 Serum or plasma urea nitrogen measurement (mass/volume ) 35 mg/dL 7-18 Serum or plasma creatinine measurement (mass/volume) 2.53 mg/dL 0.60-1.30 Serum or plasma urea nitrogen/creatinine mass ratio 14 NRG Serum or plasma creatinine measurement w ith calculation of estimated glomerular filtration rate 19 NRG Serum or plasma glucose measurement (mass/volume) 245 mg/dL 70-105 Serum or plasma calcium measurement (mass/volume) 9.0 mg/dL 8.5-10.1 Serum or plasma total bilirubin measurement (mass/volu me) 0.7 mg/dL 0.1-1.0 Serum or plasma alkaline phosphatase momo surement (enzymatic activity/volume) 63 U/L 40-136 Serum or plasma aspartate aminotransfera se measurement (enzymatic activity/volume) 15 U/L 5-34 Serum or plasma alanine aminotransferase measurement (enzymatic activity/volume) 9 U/L 0-55 Serum or plasma protein measurement (mass/volume) 6.4 g/dL 6.4-8.2 Serum or plasma albumin measurement (mass/volume) 3.2 g/dL 3.2-4.5 CALCIUM CORRECTED 9.6 mg/dL 8.5-10.1 Serum or plasma phosphate measurement (m ass/volume) - 12/28/18 03:16 Serum or plasma phosphate measurement (mass/volume) 2.6 mg/dL 2.3-4.7 Magnesium - 12/28/18 03:16 Magnesium 2.0 mg/dL 1.8-2.4 Beta-hydroxybutyric acid measurement - 0 12/28/18 03:16 Beta-hydroxybutyric acid measurement 0.05 mmol/L 0.00-0.27 Capillary blood glucose measurement by g lucometer (mass/volume) - 12/28/18 04:10 Capillary blood glucose measurement by glucometer (mas s/volume) 223 mg/dL 70-110 Capillary blood glucose measurement by g lucometer (mass/volume) - 12/28/18 05:05 Capillary blood glucose measurement by glucometer (mas s/volume) 228 mg/dL 70-110 Capillary blood glucose measurement by g lucometer (mass/volume) - 12/28/18 06:12 Capillary blood glucose measurement by glucometer (mas s/volume) 197 mg/dL 70-110 Serum or plasma troponin i.cardiac measu rement (mass/volume) - 12/28/18 06:12 Serum or plasma troponin i.cardiac measurement (mass/v olume) < ng/mL <0.028 Capillary blood glucose measurement by g lucometer (mass/volume) - 12/28/18 10:18 Capillary blood glucose measurement by glucometer (mas s/volume) 294 mg/dL 70-110 UA W/ MICROSCOPY - 01/03/19 15:42 COLOR YELLOW YELLOW APPEARANCE CLOUDY CLEAR SPECIFIC GRAVITY 1.009 1.001-1.035 PH < OR = 5.0 5.0-8.0 GLUCOSE TRACE NEGATIVE BILIRUBIN NEGATIVE NEGATIVE KETONES NEGATIVE NEGATIVE OCCULT BLOOD NEGATIVE NEGATIVE PROTEIN NEGATIVE NEGATIVE NITRITE NEGATIVE NEGATIVE LEUKOCYTE ESTERASE NEGATIVE NEGATIVE WBC 0-5 /HPF < OR = 5 RBC 0-2 /HPF < OR = 2 SQUAMOUS EPITHELIAL CELLS 6-10 /HPF < OR = 5 BACTERIA FEW /HPF NONE SEEN HYALINE CAST NONE SEEN /LPF NONE SEEN COMMENTS FEW MUCOUS THREADS NRG Complete urinalysis with reflex to cultu re - 01/17/19 14:39 Urine color determination YELLOW NRG Urine clarity determination CLEAR NR G Urine pH measurement by test strip 5 5-9 Specific gravity of urine by test strip 1.025 1.016-1.022 Urine protein assay by test strip, semi-quantitative 1+ NEGATIVE Urine glucose detection by automated test strip 1+ NEGATIVE Erythrocytes detection in urine sediment by light micr oscopy NEGATIVE NEGATIVE Urine ketones detection by automated test strip NE GATIVE NEGATIVE Urine nitrite detection by test strip NEGATIVE NEGATIVE Urine total bilirubin detection by test strip NEGA TIVE NEGATIVE Urine urobilinogen measurement by automated test strip (mass/volume) NORMAL NORMAL Urine leukocyte esterase detection by dipstick 1+ NEGATIVE Automated urine sediment erythrocyte cou nt by microscopy (number/high power field) NONE NRG Automated urine sediment leukocyte count by microscopy (number/high power field) [HPF] NRG Bacteria detection in urine sediment by light microsco py FEW NRG Squamous epithelial cells detection in u rine sediment by light microscopy 10-25 NRG Crystals detection in urine sediment by light microsco py NONE NRG Casts detection in urine sediment by light microscopy PRESENT NRG Mucus detection in urine sediment by light microscopy NEGATIVE NRG Complete urinalysis with reflex to culture YES NRG Hyaline casts detection in urine sediment by light codie roscopy 10-25 NRG Bacterial urine culture - 01/17/19 14:39 Bacterial urine culture 3 OR MORE NRG COLONY COUNT 20,000 CFU/ML NRG FTX;REPORTABLE GRAM POSITIVES, SUGGESTING PROBABLE NRG FREE TEXT ENTRY 2 COLLECTION CONTAMINATION WITH SK IN ROB NRG FREE TEXT ENTRY 3 NO SUSCEPTIBILITY PERFORMED NRG Complete blood count (CBC) with automate d white blood cell (WBC) differential - 01/31/19 13:25 Blood leukocytes automated count (number/volume) 6.1 10*3/uL 4.3-11.0 Blood erythrocytes automated count (number/volume) 3.18 10*6/uL 4.35-5.85 Venous blood hemoglobin measurement (mass/volume) 9.9 g/dL 11.5-16.0 Blood hematocrit (volume fraction) 29 % 35-52 Automated erythrocyte mean corpuscular volume 90 [ foz_us] 80-99 Automated erythrocyte mean corpuscular h emoglobin (mass per erythrocyte) 31 pg 25-34 Automated erythrocyte mean corpuscular h emoglobin concentration measurement (mass/volume) 35 g/dL 32-36 Automated erythrocyte distribution width ratio 13. 5 % 10.0- 14.5 Automated blood platelet count (count/volume) 174 10*3/uL 130-400 Automated blood platelet mean volume measurement 10.1 [foz_us] 7.4-10.4 Automated blood neutrophils/100 leukocytes 67 % 42-75 Automated blood lymphocytes/100 leukocytes 19 % 12-44 Blood monocytes/100 leukocytes 8 % 0-12 Automated blood eosinophils/100 leukocytes 6 % 0-10 Automated blood basophils/100 leukocytes 1 % 0-10 Blood neutrophils automated count (number/volume) 4.1 10*3 1.8-7.8 Blood lymphocytes automated count (number/volume) 1.1 10*3 1.0-4.0 Blood monocytes automated count (number/volume) 0. 5 10*3 0.0-1.0 Automated eosinophil count 0.4 10*3/uL 0 .0-0.3 Automated blood basophil count (count/volume) 0.0 10*3/uL 0.0-0.1 Complete blood count (CBC) with automate d white blood cell (WBC) differential - 03/28/19 13:52 Blood leukocytes automated count (number/volume) 3.6 10*3/uL 4.3-11.0 Blood erythrocytes automated count (number/volume) 2.74 10*6/uL 4.35-5.85 Venous blood hemoglobin measurement (mass/volume) 8.5 g/dL 11.5-16.0 Blood hematocrit (volume fraction) 26 % 35-52 Automated erythrocyte mean corpuscular volume 95 [ foz_us] 80-99 Automated erythrocyte mean corpuscular h emoglobin (mass per erythrocyte) 31 pg 25-34 Automated erythrocyte mean corpuscular h emoglobin concentration measurement (mass/volume) 33 g/dL 32-36 Automated erythrocyte distribution width ratio 14. 6 % 10.0- 14.5 Automated blood platelet count (count/volume) 160 10*3/uL 130-400 Automated blood platelet mean volume measurement 10.0 [foz_us] 7.4-10.4 Automated blood neutrophils/100 leukocytes 63 % 42-75 Automated blood lymphocytes/100 leukocytes 23 % 12-44 Blood monocytes/100 leukocytes 9 % 0-12 Automated blood eosinophils/100 leukocytes 5 % 0-10 Automated blood basophils/100 leukocytes 1 % 0-10 Blood neutrophils automated count (number/volume) 2.3 10*3 1.8-7.8 Blood lymphocytes automated count (number/volume) 0.8 10*3 1.0-4.0 Blood monocytes automated count (number/volume) 0. 3 10*3 0.0-1.0 Automated eosinophil count 0.2 10*3/uL 0 .0-0.3 Automated blood basophil count (count/volume) 0.0 10*3/uL 0.0-0.1 Comprehensive metabolic panel - 03/28/19 13:52 Serum or plasma sodium measurement (moles/volume) 140 mmol/L 135-145 Serum or plasma potassium measurement (moles/volume) 4.4 mmol/L 3.6-5.0 Serum or plasma chloride measurement (moles/volume) 109 mmol/L 98-107 Carbon dioxide 23 mmol/L 21-32 Serum or plasma anion gap determination (moles/volume) 8 mmol/L 5-14 Serum or plasma urea nitrogen measurement (mass/volume ) 19 mg/dL 7-18 Serum or plasma creatinine measurement (mass/volume) 1.67 mg/dL 0.60-1.30 Serum or plasma urea nitrogen/creatinine mass ratio 11 NRG Serum or plasma creatinine measurement w ith calculation of estimated glomerular filtration rate 31 NRG Serum or plasma glucose measurement (mass/volume) 154 mg/dL 70-105 Serum or plasma calcium measurement (mass/volume) 9.3 mg/dL 8.5-10.1 Serum or plasma total bilirubin measurement (mass/volu me) 0.5 mg/dL 0.1-1.0 Serum or plasma alkaline phosphatase momo surement (enzymatic activity/volume) 82 U/L 40-136 Serum or plasma aspartate aminotransfera se measurement (enzymatic activity/volume) 19 U/L 5-34 Serum or plasma alanine aminotransferase measurement (enzymatic activity/volume) 9 U/L 0-55 Serum or plasma protein measurement (mass/volume) 7.0 g/dL 6.4-8.2 Serum or plasma albumin measurement (mass/volume) 3.5 g/dL 3.2-4.5 CALCIUM CORRECTED 9.7 mg/dL 8.5-10.1 Magnesium - 03/28/19 13:52 Magnesium 1.9 mg/dL 1.6-2.4 Serum or plasma lithium measurement (mol es/volume) - 03/28/19 13:52 BNP PT 215.2 pg/mL <100.0 Complete blood count (CBC) with automate d white blood cell (WBC) differential - 04/10/19 13:30 Blood leukocytes automated count (number/volume) 7.9 10*3/uL 4.3-11.0 Blood erythrocytes automated count (number/volume) 3.06 10*6/uL 4.35-5.85 Venous blood hemoglobin measurement (mass/volume) 9.6 g/dL 11.5-16.0 Blood hematocrit (volume fraction) 29 % 35-52 Automated erythrocyte mean corpuscular volume 95 [ foz_us] 80-99 Automated erythrocyte mean corpuscular h emoglobin (mass per erythrocyte) 31 pg 25-34 Automated erythrocyte mean corpuscular h emoglobin concentration measurement (mass/volume) 33 g/dL 32-36 Automated erythrocyte distribution width ratio 14. 8 % 10.0- 14.5 Automated blood platelet count (count/volume) 228 10*3/uL 130-400 Automated blood platelet mean volume measurement 10.1 [foz_us] 7.4-10.4 Automated blood neutrophils/100 leukocytes 72 % 42-75 Automated blood lymphocytes/100 leukocytes 13 % 12-44 Blood monocytes/100 leukocytes 9 % 0-12 Automated blood eosinophils/100 leukocytes 6 % 0-10 Automated blood basophils/100 leukocytes 1 % 0-10 Blood neutrophils automated count (number/volume) 5.7 10*3 1.8-7.8 Blood lymphocytes automated count (number/volume) 1.1 10*3 1.0-4.0 Blood monocytes automated count (number/volume) 0. 7 10*3 0.0-1.0 Automated eosinophil count 0.5 10*3/uL 0 .0-0.3 Automated blood basophil count (count/volume) 0.0 10*3/uL 0.0-0.1 Comprehensive metabolic panel - 04/10/19 13:30 Serum or plasma sodium measurement (moles/volume) 139 mmol/L 135-145 Serum or plasma potassium measurement (moles/volume) 4.5 mmol/L 3.6-5.0 Serum or plasma chloride measurement (moles/volume) 102 mmol/L 98-107 Carbon dioxide 21 mmol/L 21-32 Serum or plasma anion gap determination (moles/volume) 16 mmol/L 5-14 Serum or plasma urea nitrogen measurement (mass/volume ) 53 mg/dL 7-18 Serum or plasma creatinine measurement (mass/volume) 4.15 mg/dL 0.60-1.30 Serum or plasma urea nitrogen/creatinine mass ratio 13 NRG Serum or plasma creatinine measurement w ith calculation of estimated glomerular filtration rate 11 NRG Serum or plasma glucose measurement (mass/volume) 278 mg/dL 70-105 Serum or plasma calcium measurement (mass/volume) 9.5 mg/dL 8.5-10.1 Serum or plasma total bilirubin measurement (mass/volu me) 0.7 mg/dL 0.1-1.0 Serum or plasma alkaline phosphatase momo surement (enzymatic activity/volume) 82 U/L 40-136 Serum or plasma aspartate aminotransfera se measurement (enzymatic activity/volume) 17 U/L 5-34 Serum or plasma alanine aminotransferase measurement (enzymatic activity/volume) 10 U/L 0-55 Serum or plasma protein measurement (mass/volume) 7.7 g/dL 6.4-8.2 Serum or plasma albumin measurement (mass/volume) 3.9 g/dL 3.2-4.5 CALCIUM CORRECTED 9.6 mg/dL 8.5-10.1 PT panel in platelet poor plasma by coag ulation assay - 04/10/19 13:30 Prothrombin time (PT) in platelet poor plasma by coagu lation assay 13.7 s 12.2-14.7 INR in platelet poor plasma or blood by coagulation as say 1.0 0.8-1.4 Activated partial thromboplastin time (a PTT) in platelet poor plasma bycoagulation assay - 04/10/19 13:30 Activated partial thromboplastin time (a PTT) in platelet poor plasma bycoagulation assay 30 s 24-35 Complete urinalysis with reflex to cultu re - 04/10/19 13:46 Urine color determination YELLOW NRG Urine clarity determination SLIGHTLY CLOUDY NRG Urine pH measurement by test strip 5 5-9 Specific gravity of urine by test strip 1.015 1.016-1.022 Urine protein assay by test strip, semi-quantitative 1+ NEGATIVE Urine glucose detection by automated test strip NE GATIVE NEGATIVE Erythrocytes detection in urine sediment by light micr oscopy NEGATIVE NEGATIVE Urine ketones detection by automated test strip NE GATIVE NEGATIVE Urine nitrite detection by test strip NEGATIVE NEGATIVE Urine total bilirubin detection by test strip NEGA TIVE NEGATIVE Urine urobilinogen measurement by automated test strip (mass/volume) NORMAL NORMAL Urine leukocyte esterase detection by dipstick 1+ NEGATIVE Automated urine sediment erythrocyte cou nt by microscopy (number/high power field) NONE NRG Automated urine sediment leukocyte count by microscopy (number/high power field) [HPF] NRG Bacteria detection in urine sediment by light microsco py MODERATE NRG Crystals detection in urine sediment by light microsco py NONE NRG Casts detection in urine sediment by light microscopy NONE NRG Mucus detection in urine sediment by light microscopy SMALL NRG Complete urinalysis with reflex to culture YES NRG Bacterial urine culture - 04/10/19 13:46 Bacterial urine culture 3 OR MORE NRG COLONY COUNT 60,000 cfu/ml NRG FTX;REPORTABLE (GRAM POSITIVE) SUGGESTING PROBABLE NRG FREE TEXT ENTRY 2 COLLECTION CONTAMINATION WITH SK IN NRG FREE TEXT ENTRY 3 ROB. NO SUSCEPTIBILITY PERFOR MED NRG Capillary blood glucose measurement by g lucometer (mass/volume) - 04/10/19 17:21 Capillary blood glucose measurement by glucometer (mas s/volume) 249 mg/dL 70-110 Serum or plasma amylase measurement (enz ymatic activity/volume) - 04/10/19 19:45 Serum or plasma amylase measurement (enzymatic activit y/volume) 65 U/L 25-125 Lipase - 04/10/19 19:45 Lipase 57 U/L 8-78 Serum or plasma creatinine measurement ( mass/volume) - 04/10/19 19:45 Serum or plasma creatinine measurement (mass/volume) 3.35 mg/dL 0.60-1.30 Capillary blood glucose measurement by g lucometer (mass/volume) - 04/10/19 20:56 Capillary blood glucose measurement by glucometer (mas s/volume) 278 mg/dL 70-110 Complete blood count (CBC) with automate d white blood cell (WBC) differential - 04/11/19 05:30 Blood leukocytes automated count (number/volume) 4.5 10*3/uL 4.3-11.0 Blood erythrocytes automated count (number/volume) 2.41 10*6/uL 4.35-5.85 Venous blood hemoglobin measurement (mass/volume) 7.4 g/dL 11.5-16.0 Blood hematocrit (volume fraction) 23 % 35-52 Automated erythrocyte mean corpuscular volume 96 [ foz_us] 80-99 Automated erythrocyte mean corpuscular h emoglobin (mass per erythrocyte) 31 pg 25-34 Automated erythrocyte mean corpuscular h emoglobin concentration measurement (mass/volume) 32 g/dL 32-36 Automated erythrocyte distribution width ratio 14. 9 % 10.0- 14.5 Automated blood platelet count (count/volume) 142 10*3/uL 130-400 Automated blood platelet mean volume measurement 10.1 [foz_us] 7.4-10.4 Automated blood neutrophils/100 leukocytes 50 % 42-75 Automated blood lymphocytes/100 leukocytes 33 % 12-44 Blood monocytes/100 leukocytes 12 % 0-12 Automated blood eosinophils/100 leukocytes 6 % 0-10 Automated blood basophils/100 leukocytes 0 % 0-10 Blood neutrophils automated count (number/volume) 2.2 10*3 1.8-7.8 Blood lymphocytes automated count (number/volume) 1.5 10*3 1.0-4.0 Blood monocytes automated count (number/volume) 0. 5 10*3 0.0-1.0 Automated eosinophil count 0.3 10*3/uL 0 .0-0.3 Automated blood basophil count (count/volume) 0.0 10*3/uL 0.0-0.1 Comprehensive metabolic panel - 04/11/19 05:30 Serum or plasma sodium measurement (moles/volume) 141 mmol/L 135-145 Serum or plasma potassium measurement (moles/volume) 3.9 mmol/L 3.6-5.0 Serum or plasma chloride measurement (moles/volume) 111 mmol/L 98-107 Carbon dioxide 20 mmol/L 21-32 Serum or plasma anion gap determination (moles/volume) 10 mmol/L 5-14 Serum or plasma urea nitrogen measurement (mass/volume ) 41 mg/dL 7-18 Serum or plasma creatinine measurement (mass/volume) 2.57 mg/dL 0.60-1.30 Serum or plasma urea nitrogen/creatinine mass ratio 16 NRG Serum or plasma creatinine measurement w ith calculation of estimated glomerular filtration rate 19 NRG Serum or plasma glucose measurement (mass/volume) 150 mg/dL 70-105 Serum or plasma calcium measurement (mass/volume) 8.2 mg/dL 8.5-10.1 Serum or plasma total bilirubin measurement (mass/volu me) 0.5 mg/dL 0.1-1.0 Serum or plasma alkaline phosphatase momo surement (enzymatic activity/volume) 58 U/L 40-136 Serum or plasma aspartate aminotransfera se measurement (enzymatic activity/volume) 14 U/L 5-34 Serum or plasma alanine aminotransferase measurement (enzymatic activity/volume) 8 U/L 0-55 Serum or plasma protein measurement (mass/volume) 6.0 g/dL 6.4-8.2 Serum or plasma albumin measurement (mass/volume) 3.1 g/dL 3.2-4.5 CALCIUM CORRECTED 8.9 mg/dL 8.5-10.1 Capillary blood glucose measurement by g lucometer (mass/volume) - 04/11/19 11:18 Capillary blood glucose measurement by glucometer (mas s/volume) 321 mg/dL 70-110 Capillary blood glucose measurement by g lucometer (mass/volume) - 04/11/19 15:46 Capillary blood glucose measurement by glucometer (mas s/volume) 241 mg/dL 70-110 RED CELLS LEUKO REDUCED AS1 - 04/11/19 1 6:40 RED CELLS LEUKO REDUCED AS1 T RANSFUSED 04/11/19 1824 NR Blood type T Indirect antibody screen pa myron - 04/11/19 16:40 WRISTBAND NUMBER [id number] NRG ABO+Rh group AP NRG Blood group antibody screen NEGATIVE NR G Capillary blood glucose measurement by g lucometer (mass/volume) - 04/11/19 21:01 Capillary blood glucose measurement by glucometer (mas s/volume) 213 mg/dL 70-110 Complete blood count (CBC) with automate d white blood cell (WBC) differential - 04/12/19 05:15 Blood leukocytes automated count (number/volume) 3.4 10*3/uL 4.3-11.0 Blood erythrocytes automated count (number/volume) 2.59 10*6/uL 4.35-5.85 Venous blood hemoglobin measurement (mass/volume) 8.2 g/dL 11.5-16.0 Blood hematocrit (volume fraction) 24 % 35-52 Automated erythrocyte mean corpuscular volume 93 [ foz_us] 80-99 Automated erythrocyte mean corpuscular h emoglobin (mass per erythrocyte) 32 pg 25-34 Automated erythrocyte mean corpuscular h emoglobin concentration measurement (mass/volume) 34 g/dL 32-36 Automated erythrocyte distribution width ratio 14. 2 % 10.0- 14.5 Automated blood platelet count (count/volume) 96 1 0*3/uL 130-400 Automated blood platelet mean volume measurement 10.4 [foz_us] 7.4-10.4 Automated blood neutrophils/100 leukocytes 49 % 42-75 Automated blood lymphocytes/100 leukocytes 35 % 12-44 Blood monocytes/100 leukocytes 11 % 0-12 Automated blood eosinophils/100 leukocytes 5 % 0-10 Automated blood basophils/100 leukocytes 0 % 0-10 Blood neutrophils automated count (number/volume) 1.6 10*3 1.8-7.8 Blood lymphocytes automated count (number/volume) 1.2 10*3 1.0-4.0 Blood monocytes automated count (number/volume) 0. 4 10*3 0.0-1.0 Automated eosinophil count 0.2 10*3/uL 0 .0-0.3 Automated blood basophil count (count/volume) 0.0 10*3/uL 0.0-0.1 Comprehensive metabolic panel - 04/12/19 05:15 Serum or plasma sodium measurement (moles/volume) 142 mmol/L 135-145 Serum or plasma potassium measurement (moles/volume) 4.0 mmol/L 3.6-5.0 Serum or plasma chloride measurement (moles/volume) 110 mmol/L 98-107 Carbon dioxide 21 mmol/L 21-32 Serum or plasma anion gap determination (moles/volume) 11 mmol/L 5-14 Serum or plasma urea nitrogen measurement (mass/volume ) 28 mg/dL 7-18 Serum or plasma creatinine measurement (mass/volume) 1.98 mg/dL 0.60-1.30 Serum or plasma urea nitrogen/creatinine mass ratio 14 NRG Serum or plasma creatinine measurement w ith calculation of estimated glomerular filtration rate 26 NRG Serum or plasma glucose measurement (mass/volume) 120 mg/dL 70-105 Serum or plasma calcium measurement (mass/volume) 8.8 mg/dL 8.5-10.1 Serum or plasma total bilirubin measurement (mass/volu me) 0.7 mg/dL 0.1-1.0 Serum or plasma alkaline phosphatase momo surement (enzymatic activity/volume) 59 U/L 40-136 Serum or plasma aspartate aminotransfera se measurement (enzymatic activity/volume) 16 U/L 5-34 Serum or plasma alanine aminotransferase measurement (enzymatic activity/volume) 8 U/L 0-55 Serum or plasma protein measurement (mass/volume) 6.1 g/dL 6.4-8.2 Serum or plasma albumin measurement (mass/volume) 3.3 g/dL 3.2-4.5 CALCIUM CORRECTED 9.4 mg/dL 8.5-10.1 Capillary blood glucose measurement by g lucometer (mass/volume) - 05/07/19 16:26 Capillary blood glucose measurement by glucometer (mas s/volume) 183 mg/dL 70-110 Complete blood count (CBC) with automate d white blood cell (WBC) differential - 05/07/19 16:39 Blood leukocytes automated count (number/volume) 5.5 10*3/uL 4.3-11.0 Blood erythrocytes automated count (number/volume) 3.56 10*6/uL 4.35-5.85 Venous blood hemoglobin measurement (mass/volume) 10.9 g/dL 11.5-16.0 Blood hematocrit (volume fraction) 33 % 35-52 Automated erythrocyte mean corpuscular volume 92 [ foz_us] 80-99 Automated erythrocyte mean corpuscular h emoglobin (mass per erythrocyte) 31 pg 25-34 Automated erythrocyte mean corpuscular h emoglobin concentration measurement (mass/volume) 33 g/dL 32-36 Automated erythrocyte distribution width ratio 13. 9 % 10.0- 14.5 Automated blood platelet count (count/volume) 173 10*3/uL 130-400 Automated blood platelet mean volume measurement 10.1 [foz_us] 7.4-10.4 Automated blood neutrophils/100 leukocytes 72 % 42-75 Automated blood lymphocytes/100 leukocytes 15 % 12-44 Blood monocytes/100 leukocytes 8 % 0-12 Automated blood eosinophils/100 leukocytes 4 % 0-10 Automated blood basophils/100 leukocytes 0 % 0-10 Blood neutrophils automated count (number/volume) 4.0 10*3 1.8-7.8 Blood lymphocytes automated count (number/volume) 0.8 10*3 1.0-4.0 Blood monocytes automated count (number/volume) 0. 5 10*3 0.0-1.0 Automated eosinophil count 0.2 10*3/uL 0 .0-0.3 Automated blood basophil count (count/volume) 0.0 10*3/uL 0.0-0.1 Comprehensive metabolic panel - 05/07/19 16:39 Serum or plasma sodium measurement (moles/volume) 140 mmol/L 135-145 Serum or plasma potassium measurement (moles/volume) 4.4 mmol/L 3.6-5.0 Serum or plasma chloride measurement (moles/volume) 106 mmol/L 98-107 Carbon dioxide 21 mmol/L 21-32 Serum or plasma anion gap determination (moles/volume) 13 mmol/L 5-14 Serum or plasma urea nitrogen measurement (mass/volume ) 35 mg/dL 7-18 Serum or plasma creatinine measurement (mass/volume) 2.00 mg/dL 0.60-1.30 Serum or plasma urea nitrogen/creatinine mass ratio 18 NRG Serum or plasma creatinine measurement w ith calculation of estimated glomerular filtration rate 25 NRG Serum or plasma glucose measurement (mass/volume) 196 mg/dL 70-105 Serum or plasma calcium measurement (mass/volume) 10.2 mg/dL 8.5-10.1 Serum or plasma total bilirubin measurement (mass/volu me) 0.6 mg/dL 0.1-1.0 Serum or plasma alkaline phosphatase momo surement (enzymatic activity/volume) 75 U/L 40-136 Serum or plasma aspartate aminotransfera se measurement (enzymatic activity/volume) 19 U/L 5-34 Serum or plasma alanine aminotransferase measurement (enzymatic activity/volume) 12 U/L 0-55 Serum or plasma protein measurement (mass/volume) 7.8 g/dL 6.4-8.2 Serum or plasma albumin measurement (mass/volume) 4.1 g/dL 3.2-4.5 CALCIUM CORRECTED 10.1 mg/dL 8.5-10.1 Complete urinalysis with reflex to cultu re - 05/07/19 17:32 Urine color determination YELLOW NRG Urine clarity determination CLEAR NR G Urine pH measurement by test strip 7.5 5-9 Specific gravity of urine by test strip 1.010 1.016-1.022 Urine protein assay by test strip, semi-quantitative NEGATIVE NEGATIVE Urine glucose detection by automated test strip NE GATIVE NEGATIVE Erythrocytes detection in urine sediment by light micr oscopy NEGATIVE NEGATIVE Urine ketones detection by automated test strip NE GATIVE NEGATIVE Urine nitrite detection by test strip POSITIVE NEGATIVE Urine total bilirubin detection by test strip NEGA TIVE NEGATIVE Urine urobilinogen measurement by automated test strip (mass/volume) 0.2 mg/dL < = 1.0 Urine leukocyte esterase detection by dipstick 1+ NEGATIVE Automated urine sediment erythrocyte cou nt by microscopy (number/high power field) NONE NRG Automated urine sediment leukocyte count by microscopy (number/high power field) [HPF] NRG Bacteria detection in urine sediment by light microsco py FEW NRG Squamous epithelial cells detection in u rine sediment by light microscopy 2-5 NRG Crystals detection in urine sediment by light microsco py NONE NRG Casts detection in urine sediment by light microscopy NONE NRG Mucus detection in urine sediment by light microscopy NEGATIVE NRG Complete urinalysis with reflex to culture YES NRG Bacterial urine culture - 05/07/19 17:32 Bacterial urine culture 3 OR MORE NRG COLONY COUNT >100,000/ML NRG FTX;REPORTABLE GRAM POSITIVE ISOLATES; SUGGESTING NRG FREE TEXT ENTRY 2 PROBABLE COLLECTION CONTAMINATIO N WITH NRG FREE TEXT ENTRY 3 SKIN ROB. NO SUSCEPTIBILITY PE RFORMED. NRG THYROID STIMULATING HORMONE - 05/16/19 1 3:45 THYROID STIMULATING HORMONE 5.29 u[iU]/mL 0.35-4.94 Magnesium - 05/16/19 13:46 Magnesium 2.1 mg/dL 1.6-2.4 Complete blood count (CBC) with automate d white blood cell (WBC) differential - 06/05/19 16:50 Blood leukocytes automated count (number/volume) 6.7 10*3/uL 4.3-11.0 Blood erythrocytes automated count (number/volume) 3.51 10*6/uL 4.35-5.85 Venous blood hemoglobin measurement (mass/volume) 10.8 g/dL 11.5-16.0 Blood hematocrit (volume fraction) 32 % 35-52 Automated erythrocyte mean corpuscular volume 92 [ foz_us] 80-99 Automated erythrocyte mean corpuscular h emoglobin (mass per erythrocyte) 31 pg 25-34 Automated erythrocyte mean corpuscular h emoglobin concentration measurement (mass/volume) 34 g/dL 32-36 Automated erythrocyte distribution width ratio 13. 3 % 10.0- 14.5 Automated blood platelet count (count/volume) 179 10*3/uL 130-400 Automated blood platelet mean volume measurement 10.2 [foz_us] 7.4-10.4 Automated blood neutrophils/100 leukocytes 78 % 42-75 Automated blood lymphocytes/100 leukocytes 12 % 12-44 Blood monocytes/100 leukocytes 9 % 0-12 Automated blood eosinophils/100 leukocytes 1 % 0-10 Automated blood basophils/100 leukocytes 0 % 0-10 Blood neutrophils automated count (number/volume) 5.2 10*3 1.8-7.8 Blood lymphocytes automated count (number/volume) 0.8 10*3 1.0-4.0 Blood monocytes automated count (number/volume) 0. 6 10*3 0.0-1.0 Automated eosinophil count 0.0 10*3/uL 0 .0-0.3 Automated blood basophil count (count/volume) 0.0 10*3/uL 0.0-0.1 PT panel in platelet poor plasma by coag ulation assay - 06/05/19 16:50 Prothrombin time (PT) in platelet poor plasma by coagu lation assay 14.1 s 12.2-14.7 INR in platelet poor plasma or blood by coagulation as say 1.1 0.8-1.4 Activated partial thromboplastin time (a PTT) in platelet poor plasma bycoagulation assay - 06/05/19 16:50 Activated partial thromboplastin time (a PTT) in platelet poor plasma bycoagulation assay 29 s 24-35 Blood lactic acid measurement (moles/vol ume) - 06/05/19 16:50 Blood lactic acid measurement (moles/volume) 2.81 mmol/L 0.50-2.00 Comprehensive metabolic panel - 06/05/19 16:50 Serum or plasma sodium measurement (moles/volume) 138 mmol/L 135-145 Serum or plasma potassium measurement (moles/volume) 4.6 mmol/L 3.6-5.0 Serum or plasma chloride measurement (moles/volume) 102 mmol/L 98-107 Carbon dioxide 20 mmol/L 21-32 Serum or plasma anion gap determination (moles/volume) 16 mmol/L 5-14 Serum or plasma urea nitrogen measurement (mass/volume ) 46 mg/dL 7-18 Serum or plasma creatinine measurement (mass/volume) 2.26 mg/dL 0.60-1.30 Serum or plasma urea nitrogen/creatinine mass ratio 20 NRG Serum or plasma creatinine measurement w ith calculation of estimated glomerular filtration rate 22 NRG Serum or plasma glucose measurement (mass/volume) 261 mg/dL 70-105 Serum or plasma calcium measurement (mass/volume) 10.3 mg/dL 8.5-10.1 Serum or plasma total bilirubin measurement (mass/volu me) 0.9 mg/dL 0.1-1.0 Serum or plasma alkaline phosphatase momo surement (enzymatic activity/volume) 68 U/L 40-136 Serum or plasma aspartate aminotransfera se measurement (enzymatic activity/volume) 19 U/L 5-34 Serum or plasma alanine aminotransferase measurement (enzymatic activity/volume) 11 U/L 0-55 Serum or plasma protein measurement (mass/volume) 8.0 g/dL 6.4-8.2 Serum or plasma albumin measurement (mass/volume) 4.3 g/dL 3.2-4.5 CALCIUM CORRECTED 10.1 mg/dL 8.5-10.1 Serum or plasma troponin i.cardiac measu rement (mass/volume) - 06/05/19 16:50 Serum or plasma troponin i.cardiac measurement (mass/v olume) < ng/mL <0.028 Bacterial blood culture - 06/05/19 16:50 Bacterial blood culture NG NRG Complete urinalysis with reflex to cultu re - 06/05/19 16:55 Urine color determination YELLOW NRG Urine clarity determination CLEAR NR G Urine pH measurement by test strip 7.0 5-9 Specific gravity of urine by test strip 1.015 1.016-1.022 Urine protein assay by test strip, semi-quantitative NEGATIVE NEGATIVE Urine glucose detection by automated test strip NE GATIVE NEGATIVE Erythrocytes detection in urine sediment by light micr oscopy NEGATIVE NEGATIVE Urine ketones detection by automated test strip NE GATIVE NEGATIVE Urine nitrite detection by test strip NEGATIVE NEGATIVE Urine total bilirubin detection by test strip NEGA TIVE NEGATIVE Urine urobilinogen measurement by automated test strip (mass/volume) 0.2 mg/dL < = 1.0 Urine leukocyte esterase detection by dipstick TRA CE NEGATIVE Automated urine sediment erythrocyte cou nt by microscopy (number/high power field) NONE NRG Automated urine sediment leukocyte count by microscopy (number/high power field) [HPF] NRG Bacteria detection in urine sediment by light microsco py MODERATE NRG Crystals detection in urine sediment by light microsco py NONE NRG Casts detection in urine sediment by light microscopy NONE NRG Mucus detection in urine sediment by light microscopy NEGATIVE NRG Complete urinalysis with reflex to culture CULTURE PENDING NRG Bacterial urine culture - 06/05/19 16:55 Bacterial urine culture [id number] NRG COLONY COUNT >100,000/ML NRG FTX;REPORTABLE (PROBABLE COAG NEGATIVE STAPH) NRG FREE TEXT ENTRY 2 (PRELIM RAPID ID TESTING AT [facility] 06/06) NRG FREE TEXT ENTRY 3 RML CONFIRMED ID 06/07 NRG FREE TEXT ENTRY 4 SUSCEPTIBILITY REPORTED 06/08/19 10:05 NRG Dirithromycin susceptibility test by dis k diffusion - 06/05/19 16:55 Oxacillin susceptibility test by minimum inhibitory co ncentration > NRG Vancomycin susceptibility test by minimum inhibitory c oncentration 1 NRG Levofloxacin susceptibility test by minimum inhibitory concentration > NRG Rifampin susceptibility test by minimum inhibitory con centration <= NRG Cefazolin susceptibility test by minimum inhibitory co ncentration R NRG Nitrofurantoin susceptibility test by mi nimum inhibitory concentration <= NRG Penicillin G susceptibility test by minimum inhibitory concentration > NRG Bacterial blood culture - 06/05/19 17:00 Bacterial blood culture NG NRG Influenza virus A and B antigen detectio n - 06/05/19 17:09 FLU RESULT NEGATIVE FOR INFLUENZA A AND B ANTIGENS BY IA NRG Arterial blood gas measurement - 9 17:13 Blood pCO2 33 mm[Hg] 35-45 Blood pO2 86 mm[Hg] 79-93 Arterial blood bicarbonate measurement (moles/volume) 24 mmol/L 23-27 Arterial blood base excess by calculation 0.1 mmol /L -2.5-2.5 Arterial blood oxygen saturation measurement 98 % 94-100 * Inhaled oxygen flow rate ROOM AIR NRG Arterial blood pH measurement with patient temperature correction 7.47 7.37-7.43 Arterial blood carbon dioxide, total measurement (mole s/volume) 24.5 mmol/L 21.0-31.0 Body site RT RADIAL NRG Assessment of wrist artery patency prior to arterial p uncture YES-POS NRG Setting of ventilation mode NO NR G Measurement of body temperature 37 NRG Serum or plasma lactate measurement (mol es/volume) - 06/05/19 18:58 Serum or plasma lactate measurement (moles/volume) 1.68 mmol/L 0.50-2.00 Capillary blood glucose measurement by g lucometer (mass/volume) - 06/05/19 21:19 Capillary blood glucose measurement by glucometer (mas s/volume) 173 mg/dL 70-110 Complete blood count (CBC) with automate d white blood cell (WBC) differential - 06/06/19 05:50 Blood leukocytes automated count (number/volume) 4.9 10*3/uL 4.3-11.0 Blood erythrocytes automated count (number/volume) 3.12 10*6/uL 4.35-5.85 Venous blood hemoglobin measurement (mass/volume) 9.4 g/dL 11.5-16.0 Blood hematocrit (volume fraction) 29 % 35-52 Automated erythrocyte mean corpuscular volume 93 [ foz_us] 80-99 Automated erythrocyte mean corpuscular h emoglobin (mass per erythrocyte) 30 pg 25-34 Automated erythrocyte mean corpuscular h emoglobin concentration measurement (mass/volume) 32 g/dL 32-36 Automated erythrocyte distribution width ratio 13. 5 % 10.0- 14.5 Automated blood platelet count (count/volume) 143 10*3/uL 130-400 Automated blood platelet mean volume measurement 10.1 [foz_us] 7.4-10.4 Automated blood neutrophils/100 leukocytes 58 % 42-75 Automated blood lymphocytes/100 leukocytes 23 % 12-44 Blood monocytes/100 leukocytes 13 % 0-12 Automated blood eosinophils/100 leukocytes 6 % 0-10 Automated blood basophils/100 leukocytes 0 % 0-10 Blood neutrophils automated count (number/volume) 2.9 10*3 1.8-7.8 Blood lymphocytes automated count (number/volume) 1.1 10*3 1.0-4.0 Blood monocytes automated count (number/volume) 0. 6 10*3 0.0-1.0 Automated eosinophil count 0.3 10*3/uL 0 .0-0.3 Automated blood basophil count (count/volume) 0.0 10*3/uL 0.0-0.1 Comprehensive metabolic panel - 06/06/19 05:50 Serum or plasma sodium measurement (moles/volume) 141 mmol/L 135-145 Serum or plasma potassium measurement (moles/volume) 4.6 mmol/L 3.6-5.0 Serum or plasma chloride measurement (moles/volume) 111 mmol/L 98-107 Carbon dioxide 19 mmol/L 21-32 Serum or plasma anion gap determination (moles/volume) 11 mmol/L 5-14 Serum or plasma urea nitrogen measurement (mass/volume ) 37 mg/dL 7-18 Serum or plasma creatinine measurement (mass/volume) 2.09 mg/dL 0.60-1.30 Serum or plasma urea nitrogen/creatinine mass ratio 18 NRG Serum or plasma creatinine measurement w ith calculation of estimated glomerular filtration rate 24 NRG Serum or plasma glucose measurement (mass/volume) 158 mg/dL 70-105 Serum or plasma calcium measurement (mass/volume) 9.3 mg/dL 8.5-10.1 Serum or plasma total bilirubin measurement (mass/volu me) 0.8 mg/dL 0.1-1.0 Serum or plasma alkaline phosphatase momo surement (enzymatic activity/volume) 58 U/L 40-136 Serum or plasma aspartate aminotransfera se measurement (enzymatic activity/volume) 19 U/L 5-34 Serum or plasma alanine aminotransferase measurement (enzymatic activity/volume) 10 U/L 0-55 Serum or plasma protein measurement (mass/volume) 6.7 g/dL 6.4-8.2 Serum or plasma albumin measurement (mass/volume) 3.6 g/dL 3.2-4.5 CALCIUM CORRECTED 9.6 mg/dL 8.5-10.1 Serum or plasma troponin i.cardiac measu rement (mass/volume) - 06/06/19 05:50 Serum or plasma troponin i.cardiac measurement (mass/v olume) 0.030 ng/mL <0.028 Capillary blood glucose measurement by g lucometer (mass/volume) - 06/06/19 06:03 Capillary blood glucose measurement by glucometer (mas s/volume) 147 mg/dL 70-110 Capillary blood glucose measurement by g lucometer (mass/volume) - 06/06/19 08:21 Capillary blood glucose measurement by glucometer (mas s/volume) 262 mg/dL 70-110 Capillary blood glucose measurement by g lucometer (mass/volume) - 06/06/19 11:56 Capillary blood glucose measurement by glucometer (mas s/volume) 196 mg/dL 70-110 CMP - 06/20/19 14:59 GLUCOSE 255 mg/dL 65-99 UREA NITROGEN (BUN) 39 mg/dL 7-25 CREATININE 2.10 mg/dL 0.50-0.99 eGFR NON-AFR. [place] 25 mL/min/1.73m2 > OR = 60 eGFR 29 mL/min/1.73m2 > OR = 60 BUN/CREATININE RATIO 19 (calc) 6-22 SODIUM 138 mmol/L 135-146 CHLORIDE 102 mmol/L 98-110 CARBON DIOXIDE 24 mmol/L 20-32 CALCIUM 9.6 mg/dL 8.6-10.4 PROTEIN, TOTAL 7.4 g/dL 6.1-8.1 ALBUMIN 4.2 g/dL 3.6-5.1 GLOBULIN 3.2 g/dL (calc) 1.9-3.7 ALBUMIN/GLOBULIN RATIO 1.3 (calc) 1.0-2. 5 ALKALINE PHOSPHATASE 65 U/L 33-130 AST TNP U/L NRG ALT 10 U/L 6-29 AMMONIA - 06/20/19 14:59 AMMONIA (P) 132 umol/L < OR = 72 RED CELLS LEUKO REDUCED AS1 - 06/27/19 1 4:55 RED CELLS LEUKO REDUCED AS1 P RSMD TRFSD 06/28/19 1103 NRG Blood type T Indirect antibody screen pa myron - 06/27/19 14:55 WRISTBAND NUMBER [id number] NRG ABO+Rh group AP NRG Blood group antibody screen NEGATIVE NR G Automated blood complete blood count (he mogram) panel - 07/18/19 10:30 Blood leukocytes automated count (number/volume) 5.1 10*3/uL 4.3-11.0 Blood erythrocytes automated count (number/volume) 2.51 10*6/uL 4.35-5.85 Venous blood hemoglobin measurement (mass/volume) 7.7 g/dL 11.5-16.0 Blood hematocrit (volume fraction) 24 % 35-52 Automated erythrocyte mean corpuscular volume 95 [ foz_us] 80-99 Automated erythrocyte mean corpuscular h emoglobin (mass per erythrocyte) 31 pg 25-34 Automated erythrocyte mean corpuscular h emoglobin concentration measurement (mass/volume) 32 g/dL 32-36 Automated erythrocyte distribution width ratio 14. 3 % 10.0- 14.5 Automated blood platelet count (count/volume) 163 10*3/uL 130-400 Automated blood platelet mean volume measurement 10.7 [foz_us] 7.4-10.4 Whole blood basic metabolic panel - 09/01 10:30 Serum or plasma sodium measurement (moles/volume) 137 mmol/L 135-145 Serum or plasma potassium measurement (moles/volume) 3.9 mmol/L 3.6-5.0 Serum or plasma chloride measurement (moles/volume) 98 mmol/L 98-107 Carbon dioxide 26 mmol/L 21-32 Serum or plasma anion gap determination (moles/volume) 13 mmol/L 5-14 Serum or plasma urea nitrogen measurement (mass/volume ) 46 mg/dL 7-18 Serum or plasma creatinine measurement (mass/volume) 2.68 mg/dL 0.60-1.30 Serum or plasma urea nitrogen/creatinine mass ratio 17 NRG Serum or plasma creatinine measurement w ith calculation of estimated glomerular filtration rate 18 NRG Serum or plasma glucose measurement (mass/volume) 380 mg/dL 70-105 Serum or plasma calcium measurement (mass/volume) 9.8 mg/dL 8.5-10.1 Magnesium - 07/18/19 10:30 Magnesium 2.4 mg/dL 1.6-2.4 Serum or plasma lithium measurement (mol es/volume) - 07/18/19 10:30 BNP PT 46.5 pg/mL <100.0 RED CELLS LEUKO REDUCED AS1 - 07/18/19 1 1:04 RED CELLS LEUKO REDUCED AS1 P RSMD TRFSD 07/18/19 1306 NRG Blood type T Indirect antibody screen pa myron - 07/18/19 11:04 WRISTBAND NUMBER [id number] NRG ABO+Rh group AP NRG Blood group antibody screen NEGATIVE NR G Capillary blood glucose measurement by g lucometer (mass/volume) - 07/25/19 15:13 Capillary blood glucose measurement by glucometer (mas s/volume) 187 mg/dL 70-110 Complete blood count (CBC) with automate d white blood cell (WBC) differential - 07/25/19 15:17 Blood leukocytes automated count (number/volume) 6.0 10*3/uL 4.3-11.0 Blood erythrocytes automated count (number/volume) 2.98 10*6/uL 4.35-5.85 Venous blood hemoglobin measurement (mass/volume) 9.2 g/dL 11.5-16.0 Blood hematocrit (volume fraction) 28 % 35-52 Automated erythrocyte mean corpuscular volume 95 [ foz_us] 80-99 Automated erythrocyte mean corpuscular h emoglobin (mass per erythrocyte) 31 pg 25-34 Automated erythrocyte mean corpuscular h emoglobin concentration measurement (mass/volume) 33 g/dL 32-36 Automated erythrocyte distribution width ratio 15. 3 % 10.0- 14.5 Automated blood platelet count (count/volume) 213 10*3/uL 130-400 Automated blood platelet mean volume measurement 10.3 [foz_us] 7.4-10.4 Automated blood neutrophils/100 leukocytes 65 % 42-75 Automated blood lymphocytes/100 leukocytes 18 % 12-44 Blood monocytes/100 leukocytes 10 % 0-12 Automated blood eosinophils/100 leukocytes 7 % 0-10 Automated blood basophils/100 leukocytes 1 % 0-10 Blood neutrophils automated count (number/volume) 3.9 10*3 1.8-7.8 Blood lymphocytes automated count (number/volume) 1.1 10*3 1.0-4.0 Blood monocytes automated count (number/volume) 0. 6 10*3 0.0-1.0 Automated eosinophil count 0.4 10*3/uL 0 .0-0.3 Automated blood basophil count (count/volume) 0.0 10*3/uL 0.0-0.1 Comprehensive metabolic panel - 07/25/19 15:17 Serum or plasma sodium measurement (moles/volume) 140 mmol/L 135-145 Serum or plasma potassium measurement (moles/volume) 3.3 mmol/L 3.6-5.0 Serum or plasma chloride measurement (moles/volume) 99 mmol/L 98-107 Carbon dioxide 31 mmol/L 21-32 Serum or plasma anion gap determination (moles/volume) 10 mmol/L 5-14 Serum or plasma urea nitrogen measurement (mass/volume ) 38 mg/dL 7-18 Serum or plasma creatinine measurement (mass/volume) 2.65 mg/dL 0.60-1.30 Serum or plasma urea nitrogen/creatinine mass ratio 14 NRG Serum or plasma creatinine measurement w ith calculation of estimated glomerular filtration rate 18 NRG Serum or plasma glucose measurement (mass/volume) 174 mg/dL 70-105 Serum or plasma calcium measurement (mass/volume) 9.6 mg/dL 8.5-10.1 Serum or plasma total bilirubin measurement (mass/volu me) 0.6 mg/dL 0.1-1.0 Serum or plasma alkaline phosphatase momo surement (enzymatic activity/volume) 71 U/L 40-136 Serum or plasma aspartate aminotransfera se measurement (enzymatic activity/volume) 21 U/L 5-34 Serum or plasma alanine aminotransferase measurement (enzymatic activity/volume) 13 U/L 0-55 Serum or plasma protein measurement (mass/volume) 7.2 g/dL 6.4-8.2 Serum or plasma albumin measurement (mass/volume) 3.8 g/dL 3.2-4.5 CALCIUM CORRECTED 9.8 mg/dL 8.5-10.1 Magnesium - 07/25/19 15:17 Magnesium 2.4 mg/dL 1.6-2.4 Serum or plasma creatine kinase measurem ent (enzymatic activity/volume) - 07/25/19 15:17 Serum or plasma creatine kinase measurem ent (enzymatic activity/volume) 41 U/L 29-168 Serum or plasma creatine kinase MB measu rement (enzymatic activity/volume) - 07/25/19 15:17 Serum or plasma creatine kinase MB measu rement (enzymatic activity/volume) 0.6 ng/mL <6.6 Serum or plasma troponin i.cardiac measu rement (mass/volume) - 07/25/19 15:17 Serum or plasma troponin i.cardiac measurement (mass/v olume) < ng/mL <0.028 Myoglobin, serum - 07/25/19 15:17 Myoglobin, serum 72.4 ng/mL 10.0-92.0 Serum or plasma amylase measurement (enz ymatic activity/volume) - 07/25/19 15:17 Serum or plasma amylase measurement (enzymatic activit y/volume) 64 U/L 25-125 Lipase - 07/25/19 15:17 Lipase 39 U/L 8-78 Serum or plasma lithium measurement (mol es/volume) - 07/25/19 15:17 BNP PT 199.5 pg/mL <100.0 Ammonia - 07/25/19 15:17 Ammonia 84 umol/L 11-32 Serum or plasma thyroxine (T4) free jenny urement (mass/volume) - 07/25/19 15:17 Serum or plasma thyroxine (T4) free measurement (mass/ volume) 0.89 ng/dL 0.70-1.48 Serum or plasma thyrotropin measurement by detection limit <=0.05 miu/l (units/volume) - 07/25/19 15:17 Serum or plasma thyrotropin measurement by detection limit <=0.05 miu/l (units/volume) 15.88 u[iU]/mL 0.35-4.94 Serum or plasma acetaminophen measuremen t (mass/volume) - 07/25/19 15:17 Serum or plasma acetaminophen measurement (mass/volume ) < ug/mL 10-30 PT panel in platelet poor plasma by coag ulation assay - 07/25/19 15:17 Prothrombin time (PT) in platelet poor plasma by coagu lation assay 14.2 s 12.2-14.7 INR in platelet poor plasma or blood by coagulation as say 1.1 0.8-1.4 Activated partial thromboplastin time (a PTT) in platelet poor plasma bycoagulation assay - 07/25/19 15:17 Activated partial thromboplastin time (a PTT) in platelet poor plasma bycoagulation assay 27 s 24-35 Serum or plasma ethanol measurement (mas s/volume) - 07/25/19 15:17 Serum or plasma ethanol measurement (mass/volume) < mg/dL <10 Blood lactic acid measurement (moles/vol ume) - 07/25/19 15:22 Blood lactic acid measurement (moles/volume) 2.02 mmol/L 0.50-2.00 Influenza virus A and B antigen detectio n - 07/25/19 15:35 FLU RESULT NEGATIVE FOR INFLUENZA A AND B ANTIGENS BY IA NRG Bacterial blood culture - 07/25/19 15:37 Bacterial blood culture NG NRG Bacterial blood culture - 07/25/19 16:27 Bacterial blood culture NG NR Serum or plasma lactate measurement (mol es/volume) - 07/25/19 18:03 Serum or plasma lactate measurement (moles/volume) 1.49 mmol/L 0.50-2.00 Urine drug screening test - 07/25/19 18: 20 Urine phencyclidine detection by screening method NEGATIVE NEGATIVE Urine benzodiazepines detection by screening method NEGATIVE NEGATIVE Urine cocaine detection NEGATIVE NEGATI VE Urine amphetamines detection by screening method N EGATIVE NEGATIVE Urine methamphetamine detection by screening method NEGATIVE NEGATIVE Urine cannabinoids detection by screening method N EGATIVE NEGATIVE Urine opiates detection by screening method NEGATI VE NEGATIVE Urine barbiturates detection NEGATIVE N EGATIVE Screening urine tricyclic antidepressants detection NEGATIVE NEGATIVE Urine methadone detection by screening method NEGA TIVE NEGATIVE Urine oxycodone detection NEGATIVE NEGA TIVE Urine propoxyphene detection NEGATIVE N EGATIVE Complete urinalysis with reflex to cultu re - 07/25/19 18:20 Urine color determination YELLOW NRG Urine clarity determination CLEAR NR G Urine pH measurement by test strip 6.0 5-9 Specific gravity of urine by test strip 1.015 1.016-1.022 Urine protein assay by test strip, semi-quantitative NEGATIVE NEGATIVE Urine glucose detection by automated test strip NE GATIVE NEGATIVE Erythrocytes detection in urine sediment by light micr oscopy NEGATIVE NEGATIVE Urine ketones detection by automated test strip NE GATIVE NEGATIVE Urine nitrite detection by test strip NEGATIVE NEGATIVE Urine total bilirubin detection by test strip NEGA TIVE NEGATIVE Urine urobilinogen measurement by automated test strip (mass/volume) 0.2 mg/dL < = 1.0 Urine leukocyte esterase detection by dipstick NEG ATIVE NEGATIVE Automated urine sediment erythrocyte cou nt by microscopy (number/high power field) NONE NRG Automated urine sediment leukocyte count by microscopy (number/high power field) [HPF] NRG Bacteria detection in urine sediment by light microsco py MODERATE NRG Squamous epithelial cells detection in u rine sediment by light microscopy 10-25 NRG Crystals detection in urine sediment by light microsco py NONE NRG Casts detection in urine sediment by light microscopy NONE NRG Mucus detection in urine sediment by light microscopy NEGATIVE NRG Complete urinalysis with reflex to culture NO NRG Urine Legionella pneumophila antigen ass ay - 07/25/19 18:20 Urine Legionella pneumophila antigen assay Negativ e NRG Methicillin resistant Staphylococcus aur eus (MRSA) screening culture - 07/25/19 20:30 Methicillin resistant Staphylococcus aureus (MRSA) scr eening culture NEG NRG Complete blood count (CBC) with automate d white blood cell (WBC) differential - 07/26/19 03:10 Blood leukocytes automated count (number/volume) 5.3 10*3/uL 4.3-11.0 Blood erythrocytes automated count (number/volume) 2.45 10*6/uL 4.35-5.85 Venous blood hemoglobin measurement (mass/volume) 7.5 g/dL 11.5-16.0 Blood hematocrit (volume fraction) 23 % 35-52 Automated erythrocyte mean corpuscular volume 95 [ foz_us] 80-99 Automated erythrocyte mean corpuscular h emoglobin (mass per erythrocyte) 31 pg 25-34 Automated erythrocyte mean corpuscular h emoglobin concentration measurement (mass/volume) 32 g/dL 32-36 Automated erythrocyte distribution width ratio 15. 3 % 10.0- 14.5 Automated blood platelet count (count/volume) 147 10*3/uL 130-400 Automated blood platelet mean volume measurement 9.9 [foz_us] 7.4-10.4 Automated blood neutrophils/100 leukocytes 65 % 42-75 Automated blood lymphocytes/100 leukocytes 18 % 12-44 Blood monocytes/100 leukocytes 10 % 0-12 Automated blood eosinophils/100 leukocytes 7 % 0-10 Automated blood basophils/100 leukocytes 1 % 0-10 Blood neutrophils automated count (number/volume) 3.5 10*3 1.8-7.8 Blood lymphocytes automated count (number/volume) 0.9 10*3 1.0-4.0 Blood monocytes automated count (number/volume) 0. 5 10*3 0.0-1.0 Automated eosinophil count 0.4 10*3/uL 0 .0-0.3 Automated blood basophil count (count/volume) 0.0 10*3/uL 0.0-0.1 Comprehensive metabolic panel - 07/26/19 03:10 Serum or plasma sodium measurement (moles/volume) 138 mmol/L 135-145 Serum or plasma potassium measurement (moles/volume) 3.2 mmol/L 3.6-5.0 Serum or plasma chloride measurement (moles/volume) 104 mmol/L 98-107 Carbon dioxide 25 mmol/L 21-32 Serum or plasma anion gap determination (moles/volume) 9 mmol/L 5-14 Serum or plasma urea nitrogen measurement (mass/volume ) 34 mg/dL 7-18 Serum or plasma creatinine measurement (mass/volume) 2.34 mg/dL 0.60-1.30 Serum or plasma urea nitrogen/creatinine mass ratio 15 NRG Serum or plasma creatinine measurement w ith calculation of estimated glomerular filtration rate 21 NRG Serum or plasma glucose measurement (mass/volume) 161 mg/dL 70-105 Serum or plasma calcium measurement (mass/volume) 8.0 mg/dL 8.5-10.1 Serum or plasma total bilirubin measurement (mass/volu me) 0.5 mg/dL 0.1-1.0 Serum or plasma alkaline phosphatase momo surement (enzymatic activity/volume) 54 U/L 40-136 Serum or plasma aspartate aminotransfera se measurement (enzymatic activity/volume) 16 U/L 5-34 Serum or plasma alanine aminotransferase measurement (enzymatic activity/volume) 13 U/L 0-55 Serum or plasma protein measurement (mass/volume) 5.9 g/dL 6.4-8.2 Serum or plasma albumin measurement (mass/volume) 3.1 g/dL 3.2-4.5 CALCIUM CORRECTED 8.7 mg/dL 8.5-10.1 Liver function panel (serum or plasma al k phos, alb, total and direct bili, total protein, ALT, AST) - 07/26/19 03:10 Bilirubin direct 0.2 mg/dL 0.0-0.3 Serum or plasma indirect bilirubin measurement (mass/v olume) 0.3 mg/dL NRG Serum or plasma phosphate measurement (m ass/volume) - 07/26/19 03:10 Serum or plasma phosphate measurement (mass/volume) 2.5 mg/dL 2.3-4.7 Magnesium - 07/26/19 03:10 Magnesium 2.1 mg/dL 1.6-2.4 Ammonia - 07/26/19 03:10 Ammonia 94 umol/L 11-32 Whole blood hemoglobin and hematocrit pa myron - 07/26/19 05:55 Venous blood hemoglobin measurement (mass/volume) 7.4 g/dL 11.5-16.0 Blood hematocrit (volume fraction) 23 % 35-52 Capillary blood glucose measurement by g lucometer (mass/volume) - 07/26/19 10:02 Capillary blood glucose measurement by glucometer (mas s/volume) 139 mg/dL 70-110 Capillary blood glucose measurement by g lucometer (mass/volume) - 07/26/19 16:05 Capillary blood glucose measurement by glucometer (mas s/volume) 230 mg/dL 70-110 Capillary blood glucose measurement by g lucometer (mass/volume) - 07/26/19 20:21 Capillary blood glucose measurement by glucometer (mas s/volume) 209 mg/dL 70-110 Complete blood count (CBC) with automate d white blood cell (WBC) differential - 07/27/19 05:03 Blood leukocytes automated count (number/volume) 4.1 10*3/uL 4.3-11.0 Blood erythrocytes automated count (number/volume) 2.46 10*6/uL 4.35-5.85 Venous blood hemoglobin measurement (mass/volume) 7.5 g/dL 11.5-16.0 Blood hematocrit (volume fraction) 24 % 35-52 Automated erythrocyte mean corpuscular volume 97 [ foz_us] 80-99 Automated erythrocyte mean corpuscular h emoglobin (mass per erythrocyte) 30 pg 25-34 Automated erythrocyte mean corpuscular h emoglobin concentration measurement (mass/volume) 31 g/dL 32-36 Automated erythrocyte distribution width ratio 15. 6 % 10.0- 14.5 Automated blood platelet count (count/volume) 141 10*3/uL 130-400 Automated blood platelet mean volume measurement 10.0 [foz_us] 7.4-10.4 Automated blood neutrophils/100 leukocytes 55 % 42-75 Automated blood lymphocytes/100 leukocytes 27 % 12-44 Blood monocytes/100 leukocytes 10 % 0-12 Automated blood eosinophils/100 leukocytes 8 % 0-10 Automated blood basophils/100 leukocytes 1 % 0-10 Blood neutrophils automated count (number/volume) 2.2 10*3 1.8-7.8 Blood lymphocytes automated count (number/volume) 1.1 10*3 1.0-4.0 Blood monocytes automated count (number/volume) 0. 4 10*3 0.0-1.0 Automated eosinophil count 0.3 10*3/uL 0 .0-0.3 Automated blood basophil count (count/volume) 0.0 10*3/uL 0.0-0.1 Comprehensive metabolic panel - 07/27/19 05:03 Serum or plasma sodium measurement (moles/volume) 141 mmol/L 135-145 Serum or plasma potassium measurement (moles/volume) 4.3 mmol/L 3.6-5.0 Serum or plasma chloride measurement (moles/volume) 110 mmol/L 98-107 Carbon dioxide 24 mmol/L 21-32 Serum or plasma anion gap determination (moles/volume) 7 mmol/L 5-14 Serum or plasma urea nitrogen measurement (mass/volume ) 28 mg/dL 7-18 Serum or plasma creatinine measurement (mass/volume) 2.33 mg/dL 0.60-1.30 Serum or plasma urea nitrogen/creatinine mass ratio 12 NRG Serum or plasma creatinine measurement w ith calculation of estimated glomerular filtration rate 21 NRG Serum or plasma glucose measurement (mass/volume) 172 mg/dL 70-105 Serum or plasma calcium measurement (mass/volume) 8.1 mg/dL 8.5-10.1 Serum or plasma total bilirubin measurement (mass/volu me) 0.4 mg/dL 0.1-1.0 Serum or plasma alkaline phosphatase momo surement (enzymatic activity/volume) 58 U/L 40-136 Serum or plasma aspartate aminotransfera se measurement (enzymatic activity/volume) 18 U/L 5-34 Serum or plasma alanine aminotransferase measurement (enzymatic activity/volume) 7 U/L 0-55 Serum or plasma protein measurement (mass/volume) 6.0 g/dL 6.4-8.2 Serum or plasma albumin measurement (mass/volume) 3.2 g/dL 3.2-4.5 CALCIUM CORRECTED 8.7 mg/dL 8.5-10.1 Capillary blood glucose measurement by g lucometer (mass/volume) - 07/27/19 14:44 Capillary blood glucose measurement by glucometer (mas s/volume) 244 mg/dL 70-110 RED CELLS LEUKO REDUCED AS1 - 07/27/19 1 5:48 RED CELLS LEUKO REDUCED AS1 T RANSFUSED 07/27/19 1731 NR Blood type T Indirect antibody screen pa myron - 07/27/19 15:48 WRISTBAND NUMBER [id number] NR ABO+Rh group AP NRG Blood group antibody screen NEGATIVE NR G Capillary blood glucose measurement by g lucometer (mass/volume) - 07/27/19 16:16 Capillary blood glucose measurement by glucometer (mas s/volume) 248 mg/dL 70-110 Capillary blood glucose measurement by g lucometer (mass/volume) - 07/27/19 20:03 Capillary blood glucose measurement by glucometer (mas s/volume) 220 mg/dL 70-110 Capillary blood glucose measurement by g lucometer (mass/volume) - 07/28/19 05:37 Capillary blood glucose measurement by glucometer (mas s/volume) 234 mg/dL 70-110 Complete blood count (CBC) with automate d white blood cell (WBC) differential - 07/28/19 06:00 Blood leukocytes automated count (number/volume) 3.4 10*3/uL 4.3-11.0 Blood erythrocytes automated count (number/volume) 2.45 10*6/uL 4.35-5.85 Venous blood hemoglobin measurement (mass/volume) 7.6 g/dL 11.5-16.0 Blood hematocrit (volume fraction) 24 % 35-52 Automated erythrocyte mean corpuscular volume 97 [ foz_us] 80-99 Automated erythrocyte mean corpuscular h emoglobin (mass per erythrocyte) 31 pg 25-34 Automated erythrocyte mean corpuscular h emoglobin concentration measurement (mass/volume) 32 g/dL 32-36 Automated erythrocyte distribution width ratio 15. 1 % 10.0- 14.5 Automated blood platelet count (count/volume) 116 10*3/uL 130-400 Automated blood platelet mean volume measurement 10.1 [foz_us] 7.4-10.4 Automated blood neutrophils/100 leukocytes 52 % 42-75 Automated blood lymphocytes/100 leukocytes 28 % 12-44 Blood monocytes/100 leukocytes 12 % 0-12 Automated blood eosinophils/100 leukocytes 7 % 0-10 Automated blood basophils/100 leukocytes 1 % 0-10 Blood neutrophils automated count (number/volume) 1.8 10*3 1.8-7.8 Blood lymphocytes automated count (number/volume) 1.0 10*3 1.0-4.0 Blood monocytes automated count (number/volume) 0. 4 10*3 0.0-1.0 Automated eosinophil count 0.3 10*3/uL 0 .0-0.3 Automated blood basophil count (count/volume) 0.0 10*3/uL 0.0-0.1 Comprehensive metabolic panel - 07/28/19 06:00 Serum or plasma sodium measurement (moles/volume) 138 mmol/L 135-145 Serum or plasma potassium measurement (moles/volume) 4.3 mmol/L 3.6-5.0 Serum or plasma chloride measurement (moles/volume) 110 mmol/L 98-107 Carbon dioxide 23 mmol/L 21-32 Serum or plasma anion gap determination (moles/volume) 5 mmol/L 5-14 Serum or plasma urea nitrogen measurement (mass/volume ) 25 mg/dL 7-18 Serum or plasma creatinine measurement (mass/volume) 1.80 mg/dL 0.60-1.30 Serum or plasma urea nitrogen/creatinine mass ratio 14 NRG Serum or plasma creatinine measurement w ith calculation of estimated glomerular filtration rate 29 NRG Serum or plasma glucose measurement (mass/volume) 220 mg/dL 70-105 Serum or plasma calcium measurement (mass/volume) 8.0 mg/dL 8.5-10.1 Serum or plasma total bilirubin measurement (mass/volu me) 0.4 mg/dL 0.1-1.0 Serum or plasma alkaline phosphatase momo surement (enzymatic activity/volume) 54 U/L 40-136 Serum or plasma aspartate aminotransfera se measurement (enzymatic activity/volume) 16 U/L 5-34 Serum or plasma alanine aminotransferase measurement (enzymatic activity/volume) 11 U/L 0-55 Serum or plasma protein measurement (mass/volume) 5.5 g/dL 6.4-8.2 Serum or plasma albumin measurement (mass/volume) 2.9 g/dL 3.2-4.5 CALCIUM CORRECTED 8.9 mg/dL 8.5-10.1 Capillary blood glucose measurement by g lucometer (mass/volume) - 07/28/19 10:43 Capillary blood glucose measurement by glucometer (mas s/volume) 168 mg/dL 70-110 RED CELLS LEUKO REDUCED AS1 - 09/05/19 1 1:02 RED CELLS LEUKO REDUCED AS1 P RSMD TRFSD 09/05/19 1235 NRG Blood type T Indirect antibody screen pa myron - 09/05/19 11:02 WRISTBAND NUMBER [id number] NRG ABO+Rh group AP NRG Blood group antibody screen NEGATIVE NR G Complete urinalysis with reflex to cultu re - 09/05/19 12:00 Urine color determination YELLOW NRG Urine clarity determination CLEAR NR G Urine pH measurement by test strip 6.0 5-9 Specific gravity of urine by test strip 1.010 1.016-1.022 Urine protein assay by test strip, semi-quantitative NEGATIVE NEGATIVE Urine glucose detection by automated test strip NE GATIVE NEGATIVE Erythrocytes detection in urine sediment by light micr oscopy NEGATIVE NEGATIVE Urine ketones detection by automated test strip NE GATIVE NEGATIVE Urine nitrite detection by test strip NEGATIVE NEGATIVE Urine total bilirubin detection by test strip NEGA TIVE NEGATIVE Urine urobilinogen measurement by automated test strip (mass/volume) 0.2 mg/dL < = 1.0 Urine leukocyte esterase detection by dipstick NEG ATIVE NEGATIVE Automated urine sediment erythrocyte cou nt by microscopy (number/high power field) NONE NRG Automated urine sediment leukocyte count by microscopy (number/high power field) RARE NRG Bacteria detection in urine sediment by light microsco py TRACE NRG Squamous epithelial cells detection in u rine sediment by light microscopy 5-10 NRG Crystals detection in urine sediment by light microsco py NONE NRG Casts detection in urine sediment by light microscopy NONE NRG Mucus detection in urine sediment by light microscopy NEGATIVE NRG Complete urinalysis with reflex to culture NO NRG Ammonia - 09/05/19 12:03 Ammonia 88 umol/L 11-32 RED CELLS LEUKO REDUCED AS1 - 09/12/19 1 0:54 RED CELLS LEUKO REDUCED AS1 P RSMD TRFSD 09/12/19 1139 NRG Blood type T Indirect antibody screen pa myron - 09/12/19 10:54 WRISTBAND NUMBER [id number] NRG ABO+Rh group AP NRG Blood group antibody screen NEGATIVE NR G [id number] - 09/19/19 10:55 [id number] SPECIMEN AVAILABLE NRG Whole blood basic metabolic panel - 09/13 09/01 13:00 Serum or plasma sodium measurement (moles/volume) 141 mmol/L 135-145 Serum or plasma potassium measurement (moles/volume) 4.6 mmol/L 3.6-5.0 Serum or plasma chloride measurement (moles/volume) 109 mmol/L 98-107 Carbon dioxide 23 mmol/L 21-32 Serum or plasma anion gap determination (moles/volume) 9 mmol/L 5-14 Serum or plasma urea nitrogen measurement (mass/volume ) 44 mg/dL 7-18 Serum or plasma creatinine measurement (mass/volume) 2.28 mg/dL 0.60-1.30 Serum or plasma urea nitrogen/creatinine mass ratio 19 NRG Serum or plasma creatinine measurement w ith calculation of estimated glomerular filtration rate 22 NRG Serum or plasma glucose measurement (mass/volume) 123 mg/dL 70-105 Serum or plasma calcium measurement (mass/volume) 8.4 mg/dL 8.5-10.1 Magnesium - 09/26/19 13:00 Magnesium 2.6 mg/dL 1.6-2.4 Serum or plasma lithium measurement (mol es/volume) - 09/26/19 13:00 BNP PT 376.1 pg/mL <100.0 Complete blood count (CBC) with automate d white blood cell (WBC) differential - 09/26/19 13:00 Blood leukocytes automated count (number/volume) 3.8 10*3/uL 4.3-11.0 Blood erythrocytes automated count (number/volume) 2.07 10*6/uL 4.35-5.85 Venous blood hemoglobin measurement (mass/volume) 6.4 g/dL 11.5-16.0 Blood hematocrit (volume fraction) 20 % 35-52 Automated erythrocyte mean corpuscular volume 99 [ foz_us] 80-99 Automated erythrocyte mean corpuscular h emoglobin (mass per erythrocyte) 31 pg 25-34 Automated erythrocyte mean corpuscular h emoglobin concentration measurement (mass/volume) 31 g/dL 32-36 Automated erythrocyte distribution width ratio 15. 4 % 10.0- 14.5 Automated blood platelet count (count/volume) 137 10*3/uL 130-400 Automated blood platelet mean volume measurement 10.0 [foz_us] 7.4-10.4 Automated blood neutrophils/100 leukocytes 57 % 42-75 Automated blood lymphocytes/100 leukocytes 25 % 12-44 Blood monocytes/100 leukocytes 11 % 0-12 Automated blood eosinophils/100 leukocytes 7 % 0-10 Automated blood basophils/100 leukocytes 1 % 0-10 Blood neutrophils automated count (number/volume) 2.1 10*3 1.8-7.8 Blood lymphocytes automated count (number/volume) 0.9 10*3 1.0-4.0 Blood monocytes automated count (number/volume) 0. 4 10*3 0.0-1.0 Automated eosinophil count 0.3 10*3/uL 0 .0-0.3 Automated blood basophil count (count/volume) 0.0 10*3/uL 0.0-0.1 Encounters ACCT No. Visit Date/Time Discharge Status Pt. Type Provider Facility Loc./Unit Complaint [id number] 08/02/2019 14:00:00 08/02/2019 23:59: 59 CLS Outpatient JAMES TORRES [facility] [id number] 06/20/2019 13:20:00 Document Registration [id number] 01/03/2019 15:20:00 Document Registration [id number] 03/01/2018 12:00:00 Document Registration [id number] 05/18/2017 16:00:00 Document Registration [id number] 09/12/2019 09:32:00 23:59:59 CLS Outpatient HARVEY KHOURY, NIA [facility] LAB [id number] 07/18/2019 10:26:00 00:01:00 DIS Outpatient KRUNAL KHOURY PHD, LULA Clement [facility] LAB [id number] 07/25/2019 19:00:00 13:33:00 DIS Outpatient MICHELLE GARCIA DO [facility] 4TH CHEST PAIN,CONFUSION,EL EV AMMONIA,SEVERE SEPSIS,PN [id number] 07/18/2019 09:29:00 23:59:59 CLS Outpatient JAMES TORRES MD [facility] RAD SCREENING [id number] 07/11/2019 07:44:00 00:01:00 DIS Outpatient SHIREEN AGARWAL N V [facility] ONC [id number] 06/05/2019 18:45:00 14:45:00 DIS Inpatient KRISTINE KHOURY, TOMASA Narvaez [facility] CSD PNA, UTI, SEPSIS [id number] 05/30/2019 14:04:00 23:59:59 CLS Outpatient RACHELE JEFFERSON [facility] RAD [id number] 05/16/2019 13:41:00 23:59:59 CLS Outpatient MARY ANN CRUZ APRN [facility] LAB [id number] 05/07/2019 16:12:00 19:07:00 DIS Emergency MALLORIE FATIMA APRN [facility] ER CONFUSION, FREQUENT URI NATION [id number] 04/18/2019 14:38:00 00:01:00 DIS Outpatient KRUNAL KHOURY PHD, LULA Clement [facility] LAB [id number] 04/10/2019 16:30:00 11:40:00 DIS Inpatient BRIAN KHOURY, JAMES R [facility] 4TH N,V,DEHYDRATION,AFIB [id number] 04/04/2019 14:01:00 00:01:00 DIS Outpatient SHIREEN AGARWAL [facility] ONC [id number] 01/10/2019 13:24:00 00:01:00 DIS Outpatient KRUNAL KHOURY PHD, LULA Clement [facility] LAB [id number] 01/05/2019 12:58:00 00:01:00 DIS Outpatient SHIREEN AGARWAL V [facility] ONC [id number] 12/27/2018 17:05:00 10:50:00 DIS Inpatient GARCIA DO, MICHELLE [facility] ICU ANEMIA,HHNK [id number] 11/02/2018 20:55:00 13:05:00 DIS Inpatient GARCIA DO MICHELLE [facility] 4TH SEPSIS,UTI,MIDLY EVEVAT ED TROPONIN,CHEST PAIN [id number] 10/11/2018 14:32:00 23:59:59 CLS Outpatient KRUNAL KHOURY PHD, LULA Clement [facility] LAB [id number] 10/05/2018 12:42:00 15:58:00 DIS Outpatient SHIREEN AGARWAL [facility] ONC [id number] 09/27/2018 18:30:00 21:00:00 DIS Emergency KATERYNA KHOURY, MAUREEN Rashid [facility] ER SOA / SWELLING [id number] 09/22/2018 13:27:00 23:59:59 CLS Outpatient KRUNAL KHOURY PHD, LULA Clement [facility] LAB [id number] 09/17/2018 10:01:00 23:59:59 CLS Outpatient KRUNAL KHOURY PHD, LULA Clement [facility] LAB [id number] 08/30/2018 13:34:00 23:59:59 CLS Outpatient KRUNAL KHOURY PHD, LULA Clement [facility] LAB [id number] 08/17/2018 13:16:00 23:59:59 CLS Outpatient JAMES TORRES MD [facility] LAB [id number] 07/05/2018 19:14:00 23:59:59 CLS Outpatient JAMES TORRES MD [facility] LABNPT ANEMIA,CKD,DM,CIRRHOSIS [id number] 07/05/2018 08:00:00 23:59:59 CLS Outpatient SHIREEN AGARWAL V [facility] HH ANEMIA DM CKD CIRRHOSIS [id number] 06/18/2018 13:15:00 09:45:00 DIS Inpatient MICHELLE GARCIA DO, V [facility] IRF CRITICAL ILLNESS MYOPAT HY [id number] 05/20/2018 12:48:00 00:01:00 DIS Outpatient BRANDEN HAIDER MD, V [facility] ONC [id number] 05/30/2018 04:03:00 16:50:00 DIS Inpatient JAMES TORRES MD [facility] ICU FALL [id number] 05/28/2018 13:48:00 17:15:00 DIS Emergency MODESTO BALDERRAMA MD [facility] ER SOB [id number] 05/24/2018 13:02:00 15:25:00 DIS Inpatient TOMASA CARMONA MD [facility] 4TH ANEMIA,FEVER,NAUSEA,VOM ITING [id number] 05/05/2018 09:11:00 16:55:00 DIS Outpatient RACHELE JEFFERSON [facility] SD POOR VENOUS ACC ESS I87.8 [id number] 04/29/2018 11:33:00 23:59:59 CLS Outpatient KELLY KHOURY, TUBA [facility] LAB [id number] 03/20/2018 12:20:00 23:59:59 CLS Outpatient MACIEL WELCH APRN [facility] RAD PAIN IN LEFT LE G [id number] 03/09/2018 13:19:00 018 00:01:00 DIS Outpatient MELIZA KHOURY, BRANDEN [facility] ONC [id number] 02/10/2018 13:30:00 018 14:53:00 DIS Outpatient SHIREEN AGARWAL [facility] ONC [id number] 02/12/2018 11:00:00 018 23:59:59 CLS Preadmit SABRINA ROSSI DO [facility] POOR VENOUS ACCESS [id number] 02/11/2018 00:30:00 018 16:54:00 DIS Inpatient JAMES TORRES MD [facility] ICU CHEST PAIN,UNSTABLE ANG MAYANK;SEVERE ANEMIA;CHF [id number] 02/11/2018 06:53:00 018 23:59:59 CLS Outpatient SABRINA ROSSI DO [facility] PREOP POOR VENOUS ACCESS [id number] 01/12/2018 13:40:00 018 23:59:59 CLS Outpatient SHIREEN AGARWAL V [facility] ONC [id number] 11/17/2017 14:55:00 018 23:59:59 CLS Outpatient KELLY KHOURY, TUBA [facility] LAB [id number] 11/06/2017 15:30:00 018 03:52:00 DIS Inpatient TOMASA CARMONA MD [facility] 4TH ANEMIA/TRANSFUSION [id number] 11/06/2017 12:00:00 018 23:59:59 CLS Outpatient Wei ALCARAZ MD [facility] LAB [id number] 10/20/2017 11:12:00 018 00:01:00 DIS Outpatient SHIREEN AGARWAL V [facility] ONC [id number] 10/03/2017 23:50:00 018 13:33:00 DIS Inpatient TOMASA CARMONA MD [facility] 4TH ANEMIA,CHEST PAIN, A FI B, HYPERGLYCEMIA, [id number] 09/12/2017 22:15:00 018 14:45:00 DIS Inpatient JAMES TORRES MD [facility] ICU CHEST PAIN [id number] 07/17/2017 14:09:00 018 10:19:00 DIS Outpatient BRANDEN HAIDER MD, V [facility] ONC [id number] 07/17/2017 09:59:00 018 13:30:00 DIS Outpatient CARMINE BORRERO DO [facility] ENDO GI BLEED [id number] 07/16/2017 15:00:00 018 15:00:00 CAN Preadmit CARMINE BORRERO DO, V [facility] PREOP GI BLEED [id number] 07/01/2017 12:12:00 018 09:04:00 DIS Outpatient SHIREEN AGARWAL V [facility] ONC [id number] 06/16/2017 10:05:00 018 00:01:00 DIS Outpatient SHIREEN AGARWAL V [facility] ONC [id number] 06/14/2017 14:39:00 017 23:59:59 CLS Outpatient RACHELE JEFFERSON [facility] LAB ANEMIA,SHORTNES S OF BREATH [id number] 05/21/2017 12:23:00 017 23:59:59 CLS Outpatient SABRINA ROSSI DO [facility] RAD ABD PAIN, ANEMIA [id number] 05/12/2017 09:09:00 017 23:59:59 CLS Outpatient JAMES TORRES MD [facility] LAB [id number] 04/07/2017 06:54:00 017 23:59:59 CLS Outpatient SABRINA ROSSI DO [facility] ENDO INFLAMMATION [id number] 04/06/2017 11:00:00 017 11:22:00 DIS Outpatient SABRINA ROSSI DO [facility] PREOP CAPSULE ENDO [id number] 03/04/2017 10:21:00 017 00:01:00 DIS Outpatient SHIREEN AGARWAL V [facility] ONC [id number] 03/02/2017 07:20:00 017 23:59:59 CLS Outpatient SABRINA ROSSI DO [facility] ENDO ANEMIA [id number] 02/23/2017 05:40:00 017 11:52:00 DIS Outpatient SABRINA ROSSI DO [facility] PREOP ANEMIA [id number] 01/29/2017 09:44:00 017 15:52:00 DIS Inpatient JAMES TORRES MD [facility] ICU A-FIB WITH RVR [id number] 01/02/2017 06:29:00 017 08:45:00 DIS Outpatient SABRINA ROSSI DO [facility] ENDO ANEMIA; OCCULT POSITIVE STOOLS [id number] 12/31/2016 11:10:00 017 10:01:00 DIS Outpatient MACIEL WELCH APRN [facility] LAB ANEMIA [id number] 12/31/2016 12:53:00 017 23:59:59 CLS Outpatient SABRINA ROSSI DO [facility] PREOP ANEMIA, OCCULT POSITIVE STOOL [id number] 12/17/2016 09:30:00 017 23:59:59 CLS Preadmit KIERAN KHOURY, Wei BRANDON [facility] CARD AFIB,PSVT [id number] 10/10/2016 08:46:00 017 00:01:00 DIS Outpatient Wei ALCARAZ MD [facility] CARD AFIB,PSVT [id number] 10/24/2016 08:37:00 017 00:01:00 DIS Outpatient SHIREEN AGARWAL V [facility] ONC [id number] 10/24/2016 08:41:00 017 23:59:59 CLS Outpatient BERNY ALCARAZ MD [facility] LAB [id number] 09/15/2016 12:15:00 017 23:59:59 CLS Outpatient BERNY ALCARAZ MD [facility] LAB [id number] 11/27/2015 15:28:00 016 00:01:00 DIS Outpatient SHIREEN AGARWAL [facility] ONC [id number] 10/04/2015 13:17:00 016 23:59:59 CLS Outpatient SHIREEN AGARWAL [facility] ONC [id number] 06/12/2015 11:11:00 015 00:01:00 DIS Outpatient SHIREEN AGARWAL [facility] ONC [id number] 06/04/2015 15:34:00 015 23:59:59 CLS Preadmit RACHELE JEFFERSON [facility] ONC [id number] 03/29/2015 11:35:00 015 23:59:59 CLS Outpatient WU DIOR MD [facility] LAB [id number] 03/15/2015 14:54:00 10/01/2 015 23:59:59 CLS Outpatient WU DIOR MD [facility] LAB [id number] 11/23/2014 13:42:00 015 00:01:00 DIS Outpatient SHIREEN AGARWAL [facility] ONC [id number] 10/05/2014 13:42:00 23:59:59 CLS Outpatient CLAUDE GABRIEL MD [facility] LAB [id number] 10/05/2014 12:00:00 23:59:59 CLS Outpatient CLAUDE GABRIEL MD [facility] RAD POST SPOT URINE [id number] 07/17/2014 14:31:00 23:59:59 CLS Outpatient SHIREEN AGARWAL [facility] ONC [id number] 05/24/2014 13:33:00 23:59:59 CLS Outpatient ARNIE MCKEON MD, FACC, FACP CC DS [facility] LAB [id number] 04/03/2014 14:00:00 014 00:01:00 DIS Outpatient SHIREEN AGARWAL [facility] ONC [id number] 03/24/2014 06:46:00 014 09:55:00 DIS Outpatient TONIE CRAWFORD MD [facility] SDC SCREENING; ANEMIA [id number] 03/23/2014 07:22:00 014 23:59:59 CLS Outpatient TONIE CRAWFORD MD [facility] PREOP SCREENING; ANEMIA [id number] 03/02/2014 09:01:00 014 16:00:00 DIS Outpatient LINDA KHOURY FACC, ARNIE GONZALESP CC DS [facility] CATH CP,CAD,HTN [id number] 02/07/2014 07:52:00 014 23:59:59 CLS Outpatient LINDA KHOURY FACC, ARNIE GONZALESP CC DS [facility] CARD AFIB [id number] 03/31/2013 08:55:00 10/17/2 013 23:59:59 CLS Outpatient CHICHI RIVAS [facility] RAD MID EPIGASTRIC PAIN [id number] 09/26/2019 13:05:[address] Outpatient KRUNAL KHOURY PHD, LULA Clement [facility] LAB [id number] 09/26/2019 12:13:[address] Outpatient [facility]AL [facility] [id number] 10/05/2014 11:59:00 Document Registration [id number] 10/05/2014 11:59:00 Document Registration [id number] 10/05/2014 11:59:00 Document Registration [id number] 08/24/2014 14:23:00 Document Registration [id number] 08/21/2014 07:51:00 Document Registration [id number] 04/03/2012 14:05:00 Document Registration
--- NOTE | 2019-09-27 18:55 | ED General ---
General Chief Complaint: Respiratory Problems Stated Complaint: SOB, HX CHF Nursing Triage Note: Pt to room #10 via ED w/c with c/o SOA. Pt reports hx "gaves." Pt reports she [facility] Pt reports chronic anemia. Pt denies cough, fever, or being exposed to any known COVID-19. A&OX4. Nursing Sepsis Screen: No Definite Risk Source of Information: Patient Exam Limitations: No Limitations History of Present Illness Date Seen by Provider: Sep 27, 2019 Time Seen by Provider: 18:18 Initial Comments This 64-year-old woman presents to the emergency room with complaints of a couple days of escalating shortness of breath and chest pressure. 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 She had a transfusion yesterday for hemoglobin of 6.4. Her primary care provider is Dr. Torres. Her local job putter up and ticket preparer is Dr. Field. Her local form setter supervisor is Dr. Jorge. She also sees Dr. Felisa Sneed in [place] for cardiology. She has atrial fibrillation but does not take any antiplatelet or anticoagulant therapies due to the GAVE syndrome. She denies any fever, cough, or exposures to ill persons or persons at risk for COVID-19. She has noted a little increase in swelling recently. Allergies and Home Medications Allergies Coded Allergies: Abpxqde-Akp-Syq Reductase Inhibitor (Verified Allergy, Intermediate, GI U PSET, N/V, 11/06/17) cefadroxil (Unverified Allergy, Mild, 01/01/17) Sulfa (Sulfonamide Antibiotics) (Verified Allergy, Unknown, 06/18/18) Home Medications Acetaminophen 500 Mg Tablet, 500 MG PO Q4H PRN for PAIN-MILD (1-4), (Reported) Bumetanide 1 Mg Tablet, 1 MG PO DAILY, (Reported) Bumetanide 1 Mg Tablet, 1 MG PO DAILY PRN for SWELLING, (Reported) MAY TAKE AN ADDITIONAL DOSE IF NEEDED Cetirizine HCl 10 Mg Tablet, 10 MG PO DAILY, (Reported) Folic Acid 1 Mg Tablet, 1 MG PO DAILY, (Reported) Glucosa Horne 2Kcl/Chondroitin Horne 1 Each Capsule, 1 CAP PO BID, (Reported) Insulin Aspart 300 Units/3 Ml Solution, 8 UNITS SQ AC, (Reported) Insulin NPH Human Isophane 100 Unit/1 Ml Vial, SQ AC, (Reported) SLIDING SCALE A Lactulose 10 Gm/15 Ml Solution, 15 ML PO TID, (Reported) Levothyroxine Sodium 175 Mcg Tablet, 175 MCG PO Q48H, (Reported) LAST FILL 09-08-2018 Magnesium Oxide 400 Mg Tablet, 400 MG PO BID, (Reported) Metoclopramide HCl 10 Mg Tablet, 10 MG PO BIDAC PRN for STOMACH UPSET, (Repor edgardo) Metolazone 5 Mg Tablet, 5 MG PO SuTh PRN for WEIGHT>195, (Reported) Metoprolol Tartrate 25 Mg Tablet, 12.5 MG PO BID, (Reported) LAST FILLED #60 03-10-19 Nitroglycerin 0.4 Mg Tab.subl, 0.4 MG SL UD PRN for CHEST PAIN, (Reported) Omeprazole 40 Mg Capsule.dr, 40 MG PO BID, (Reported) Promethazine HCl 25 Mg Tablet, 12.5 MG PO Q12H PRN for NAUSEA/VOMITING-2ND LINE, (Reported) Tizanidine HCl 2 Mg Tablet, 2 MG PO TID PRN for MUSCLE SPASMS, (Reported) Tramadol HCl 50 Mg Tablet, 50 MG PO TID PRN for PAIN-MODERATE, (Reported) Patient Home Medication List Home Medication List Reviewed: Yes Review of Systems Review of Systems Constitutional: malaise, weakness EENTM: no symptoms reported Respiratory: see HPI, short of breath Cardiovascular: see HPI, chest pain Gastrointestinal: see HPI Genitourinary: no symptoms reported Musculoskeletal: no symptoms reported Skin: no symptoms reported Psychiatric/Neurological: No Symptoms Reported Hematologic/Lymphatic: See HPI Immunological/Allergic: no symptoms reported Past Bomljpd-Bmxbzz-Nnfdat Hx Past Med/Social Hx: Reviewed Nursing Past Med/Soc Hx Patient Social History Type Used: Cigarettes Former Smoker, Quit: May 20, 1980 2nd Hand Smoke Exposure: No Recent Foreign Travel: No Contact w/Someone Who Travel: No Recent Infectious Disease Expo: No Recent Hopitalizations: Yes Immunizations Up To Date Tetanus Booster (TDap): Unknown PED Vaccines UTD: Yes Date of Pneumonia Vaccine: May 16, 2019 Date of Influenza Vaccine: Apr 15, 2019 Seasonal Allergies Seasonal Allergies: Yes Past Medical History Surgeries: Yes (left knee and ankle) Adenoidectomy, Cardiac, CABG, Coronary Stent, Open Heart Surgery, Orthopedic, Tonsillectomy, Tubal Ligation Respiratory: Yes (LEFT PLEURAL EFFUSION) Sleep Apnea Currently Using CPAP: No Currently Using BIPAP: No Cardiac: Yes (CHF, STENT X1; CABG 02/16/2018 x 4 @ [facility]) Atrial Fibrillation, Chronic Edema/Swelling, Coronary Artery Disease, Heart Attack, High Cholesterol, Hypertension Neurological: Yes Reproductive Disorders: No Female Reproductive Disorders: Denies 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 Sexually Transmitted Disease: No HIV/AIDS: No Genitourinary: Yes Renal Failure Gastrointestinal: Yes (GAVE) Gastroesophageal Reflux, Gastrointestinal Bleed, Diverticulosis, Hemorrhoids, Polyps Musculoskeletal: Yes (POOR AMBULATION--USES WALKER SINCE CABG) Degenerate Disk Disease, Arthritis, Chronic Back Pain, Fractures Endocrine: Yes Diabetes, Insulin dep HEENT: No Loss of Vision: Denies Hearing Impairment: Denies Cancer: No Psychosocial: Yes Anxiety Integumentary: Yes Psoriasis Blood Disorders: Yes (acute anemia) Adverse Reaction/Blood Tranf: Yes (Antibody JKA) Family Medical History Reviewed Nursing Family Hx Arthritis G8 BROTHER Completed stroke 19 MOTHER FH: anemia 19 MOTHER FH: lupus G8 SISTER FH: throat cancer 19 FATHER Hypertension G8 SISTER Myocardial infarction 19 MOTHER Thyroid disease 19 MOTHER G8 SISTER Hypertension, Stroke, Other Conditions/Hx Physical Exam Vital Signs Vital Signs - First Documented 09/27/19 18:22 Temp 36.8 Pulse 68 Resp 18 B/P (MAP) 155/68 (97) Pulse Ox 96 O2 Delivery Room Air Capillary Refill : Less Than 3 Seconds Height, Weight, BMI Height: 5'4.00" Weight: 196lbs. 5.0oz. 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, 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 Norm as Tested Skin: Normal Color, Warm/Dry Procedures/Interventions Date of ETT Placement: May 30, 2018 Time of ETT Placement: 1330 Progress/Results/Core Measures Suspected Sepsis Recent Fever Within 48 Hours: No Infection Criteria Present: None New/Unexplained Altered Menta: No Sepsis Screen: No Definite Risk SIRS Temperature: Pulse: 68 Respiratory Rate: 18 Laboratory Tests 09/27/19 18:50: White Blood Count 3.6L Blood Pressure 155 /68 Mean: 97 Laboratory Tests 09/27/19 18:50: Creatinine 2.35H, INR Comment 1.0, Platelet Count 128L, Total Bilirubin 0.3 Results/Orders Lab Results Laboratory Tests Test 09/27/19 18:50 Range/Units White Blood Count 3.6 L 4.3-11.0 10^3/uL Red Blood Count 2.25 L 4.35-5.85 10^6/uL Hemoglobin 7.0 L 11.5-16.0 G/DL Hematocrit 22 L 35-52 % Mean Corpuscular Volume 97 80-99 FL Mean Corpuscular Hemoglobin 31 25-34 PG Mean Corpuscular Hemoglobin Concent 32 32-36 G/DL Red Cell Distribution Width 16.3 H 10.0-14.5 % Platelet Count 128 L 130-400 10^3/uL Mean Platelet Volume 10.7 H 7.4-10.4 FL Neutrophils (%) (Auto) 56 42-75 % Lymphocytes (%) (Auto) 25 12-44 % Monocytes (%) (Auto) 13 H 0-12 % Eosinophils (%) (Auto) 6 0-10 % Basophils (%) (Auto) 0 0-10 % Neutrophils # (Auto) 2.0 1.8-7.8 X 10^3 Lymphocytes # (Auto) 0.9 L 1.0-4.0 X 10^3 Monocytes # (Auto) 0.5 0.0-1.0 X 10^3 Eosinophils # (Auto) 0.2 0.0-0.3 10^3/uL Basophils # (Auto) 0.0 0.0-0.1 10^3/uL Prothrombin Time 14.0 12.2-14.7 SEC INR Comment 1.0 0.8-1.4 Activated Partial Thromboplast Time 29 24-35 SEC Sodium Level 142 135-145 MMOL/L Potassium Level 4.5 3.6-5.0 MMOL/L Chloride Level 108 H 98-107 MMOL/L Carbon Dioxide Level 23 21-32 MMOL/L Anion Gap 11 5-14 MMOL/L Blood Urea Nitrogen 45 H 7-18 MG/DL Creatinine 2.35 H 0.60-1.30 MG/DL Estimat Glomerular Filtration Rate 21 BUN/Creatinine Ratio 19 Glucose Level 160 H 70-105 MG/DL Calcium Level 8.3 L 8.5-10.1 MG/DL Corrected Calcium 8.6 8.5-10.1 MG/DL Magnesium Level 2.4 1.6-2.4 MG/DL Total Bilirubin 0.3 0.1-1.0 MG/DL Aspartate Amino Transf (AST/SGOT) 15 5-34 U/L Alanine Aminotransferase (ALT/SGPT) 10 0-55 U/L Alkaline Phosphatase 56 40-136 U/L Myoglobin 52.3 10.0-92.0 NG/ML Troponin I < 0.028 <0.028 NG/ML C-Reactive Protein High Sensitivity 0.05 0.00-0.50 MG/DL B-Type Natriuretic Peptide 308.1 H <100.0 PG/ML Total Protein 6.5 6.4-8.2 GM/DL Albumin 3.6 3.2-4.5 GM/DL Free Thyroxine 0.78 0.70-1.48 NG/DL TSH [place] Testing 6.89 H 0.35-4.94 UIU/ML My Orders Orders - MAUREEN AVENDAÑO MD BNP (09/27/19 18:18) Cbc With Automated Diff (09/27/19 18:18) Comprehensive Metabolic Panel (09/27/19 18:18) Ed Iv/Invasive Line Start (09/27/19 18:18) Magnesium (09/27/19 18:38) Chest 1 View, Ap/Pa Only (09/27/19 18:38) Ekg Tracing (09/27/19 18:38) Myoglobin Serum (09/27/19 18:38) Protime With Inr (09/27/19 18:38) Partial Thromboplastin Time (09/27/19 18:38) O2 (09/27/19 18:38) Monitor-Rhythm Ecg Trace Only (09/27/19 18:38) Troponin I (09/27/19 18:38) Type And Screen (09/27/19 18:38) Implanted Port: Access (09/27/19 18:39) Hs C Reactive Protein (09/27/19 18:57) Thyroid Analyzer (09/27/19 18:57) Red Cells Leukocytes Reduced (09/27/19 19:12) Free T4 (Free Thyroxine) (09/27/19 18:50) Ns Iv 500 Ml (Sodium Chloride 0.9%) (09/27/19 20:41) Vital Signs/I&O 09/27/19 09/27/19 09/27/19 09/27/19 18:22 20:58 21:20 22:48 Temp 36.8 37.4 37.0 37.1 Pulse 68 71 58 56 Resp 18 18 22 18 B/P (MAP) 155/68 (97) 120/79 135/63 148/69 Pulse Ox 96 94 99 98 O2 Delivery Room Air Room Air Room Air Room Air 09/27/19 23:11 Temp 37.1 Pulse 74 Resp 20 B/P (MAP) 141/68 (95) Pulse Ox 98 O2 Delivery Room Air 09/28/19 00:00 Intake Total 270 ml Balance 270 ml Capillary Refill : Less Than 3 Seconds Blood Pressure Mean: 97 Progress Note : Time: 22:50 Progress Note Hemoglobin was 7. Due to patient's renal failure and coronary artery disease, I would like her hemoglobin higher. A unit of PRBC was given. Patient states her chest pain resolved. Cardiac workup was negative. She normally takes an extra Bumex when she receives blood. She will do that when she returns home. She still feels short of breath but feels well enough to return home. She will call Dr. Jorge and Dr. Field in the morning. She remained afebrile throughout her ER stay. ECG Initial ECG Impression Date: Sep 27, 2019 Initial ECG Impression Time: 18:49 Initial ECG Rate: 53 Comment Sinus rhythm with frequent PACs. No ST elevation or depression. No axis deviat ion. Diagnostic Imaging Diagonstic Imaging: Xray Plain Films/CT/US/NM/MRI: chest Comments Chest x-ray viewed by me and report reviewed. See report below: NAME: YOLETTE PISANO Jr MED REC#: [id number] PT STATUS: REG ER : 1955 PHYSICIAN: MAUREEN AVENDAÑO MD ADMIT DATE: 09/27/19/ER Dr lu Date of Exam:09/27/19 CHEST 1 VIEW, AP/PA ONLY INDICATION: Shortness of air. Time of Exam: 7:02 PM Correlation is made with prior chest from 07/26/2019. Changes of median sternotomy are noted. Right chest wall port has tip overlying the SVC. The lungs appear to be fairly clear apart from some linear parenchymal density in the left base. This could represent an area of scarring or atelectasis. No effusion or pneumothorax is seen. Pulmonary vascularity is unremarkable. IMPRESSION: Left basilar atelectasis or scarring. Study is otherwise unremarkable. Dictated on workstation # [id number] Dict: 09/27/191911 Trans: 09/27/191917 [facility] [id number] Interpreted by: CAITLIN SUNSHINE MD Departure Impression Primary Impression: Chronic anemia Additional Impressions: Dyspnea Qualified Codes: R06.00 - Dyspnea, unspecified Chest pain Qualified Codes: R07.9 - Chest pain, unspecified Disposition: 01 HOME, SELF-CARE Condition: Improved Departure-Patient Inst. Decision time for Depature: 22:52 Referrals: JAMES TORRES MD (PCP/Family) Primary Care Physician Patient Instructions: Blood Transfusion Add. Discharge Instructions: Continue your medications as previously prescribed. If you're still short of breath when you return home, take the additional Bumex as previously instructed to take with your transfusions. Return to care if you have worsening symptoms. Please contact Dr. Jorge and Dr. Field first thing in the morning. All discharge instructions reviewed with patient and/or family. Voiced understanding. Copy Copies To 1: Wei JORGE MD Copies To 2: SHIREEN FIELD JOSHUA T MD Sep 27, 2019 18:55
[2019-09-27 18:59] LABS: BASOPHILS % (AUTO) 0 % (0-10); EOSINOPHILS # (AUTO) 0.2 10^3/uL (0.0-0.3); EOSINOPHILS % (AUTO) 6 % (0-10); HEMATOCRIT 22 % (35-52); LYMPHOCYTES # (AUTO) 0.9 X 10^3 (1.0-4.0); LYMPHOCYTES % (AUTO) 25 % (12-44); MEAN CORPUSCULAR HEMOGLOBIN 31 PG (25-34); MEAN CORPUSCULAR HGB CONC 32 G/DL (32-36); MEAN CORPUSCULAR VOLUME 97 FL (80-99); MEAN PLATELET VOLUME 10.7 FL (7.4-10.4); MONOCYTES # (AUTO) 0.5 X 10^3 (0.0-1.0); MONOCYTES % (AUTO) 13 % (0-12); NEUTROPHILS % (AUTO) 56 % (42-75); PLATELET COUNT 128 10^3/uL (130-400); RED CELL DISTRIBUTION WIDTH 16.3 % (10.0-14.5); WHITE BLOOD COUNT 3.6 10^3/uL (4.3-11.0)
--- NOTE | 2019-09-27 19:19 | Diagnostic Imaging Report ---
INDICATION: Shortness of air. Time of Exam: 7:02 PM Correlation is made with prior chest from 07/26/2019. Changes of median sternotomy are noted. Right chest wall port has tip overlying the SVC. The lungs appear to be fairly clear apart from some linear parenchymal density in the left base. This could represent an area of scarring or atelectasis. No effusion or pneumothorax is seen. Pulmonary vascularity is unremarkable. IMPRESSION: Left basilar atelectasis or scarring. Study is otherwise unremarkable. Dictated by: Dictated on workstation # [id number]
[2019-09-27 19:23] LABS: ALANINE AMINOTRANSFERASE 10 U/L (0-55); ALBUMIN 3.6 GM/DL (3.2-4.5); ALKALINE PHOSPHATASE 56 U/L (40-136); BILIRUBIN,TOTAL 0.3 MG/DL (0.1-1.0); BUN/CREATININE RATIO 19; CALCIUM 8.3 MG/DL (8.5-10.1); CARBON DIOXIDE 23 MMOL/L (21-32); CHLORIDE 108 MMOL/L (98-107); CREATININE SERUM 2.35 MG/DL (0.60-1.30); GFR ESTIMATED 21; GLUCOSE 160 MG/DL (70-105); MAGNESIUM 2.4 MG/DL (1.6-2.4); POTASSIUM 4.5 MMOL/L (3.6-5.0); SODIUM 142 MMOL/L (135-145); TOTAL PROTEIN 6.5 GM/DL (6.4-8.2)
[2019-09-27 19:43] LABS: TSH (THYROID ANALYZER) 6.89 UIU/ML (0.35-4.94)
[2019-09-27] MEDS ORDERED: NS IV 500 ML 500 ML ONE (20:41)
[2019-09-27 20:52] LABS: FREE T4 (FREE THYROXINE) 0.78 NG/DL (0.70-1.48)
[2019-09-27 20:58] VITALS: BP 120/79
[2019-09-27 21:20] VITALS: BP 135/63
[2019-09-27 22:48] VITALS: BP 148/69
[2019-09-27 23:11] VITALS: BP 141/68
== END 2019-09-27 23:11 | disposition home or self-care (01) ==
LOC: EDUNIT# 18:05 → ER 18:10
DX: D64.9 Anemia, unspecified (principal); R06.00 Dyspnea, unspecified; R07.9 Chest pain, unspecified; K31.819 Angiodysplasia of stomach and duodenum without bleeding; I13.0 Hypertensive heart and chronic kidney disease with heart failure and stage 1 through stage 4 chronic kidney disease, or unspecified chronic kidney disease; N18.9 Chronic kidney disease, unspecified; I50.9 Heart failure, unspecified; I48.91 Unspecified atrial fibrillation; I25.10 Atherosclerotic heart disease of native coronary artery without angina pectoris; G47.30 Sleep apnea, unspecified; E78.00 Pure hypercholesterolemia, unspecified; K21.9 Gastro-esophageal reflux disease without esophagitis; E11.9 Type 2 diabetes mellitus without complications; F41.9 Anxiety disorder, unspecified; I49.1 Atrial premature depolarization; Z79.4 Long term (current) use of insulin; Z95.5 Presence of coronary angioplasty implant and graft; Z95.1 Presence of aortocoronary bypass graft; Z87.891 Personal history of nicotine dependence
CPT/HCPCS: 36415; 71045; 80053; 83735; 83874; 83880; 84439; 84443; 84484; 85025; 85610; 85730; 86141; 86850; 86900; 86901; 86920; 86922; 93041

== ENCOUNTER 2019-10-14 10:19 | Outpatient (RCR) | payer MEDICARE ==
[2019-07-18 10:36] LABS: BASOPHILS % (AUTO) 0 % (0-10); EOSINOPHILS # (AUTO) 0.2 10^3/uL (0.0-0.3); EOSINOPHILS % (AUTO) 3 % (0-10); HEMATOCRIT 24 % (35-52); HEMOGLOBIN 7.7 G/DL (11.5-16.0); LYMPHOCYTES # (AUTO) 0.9 X 10^3 (1.0-4.0); LYMPHOCYTES % (AUTO) 18 % (12-44); MEAN CORPUSCULAR HEMOGLOBIN 31 PG (25-34); MEAN CORPUSCULAR HGB CONC 32 G/DL (32-36); MEAN CORPUSCULAR VOLUME 95 FL (80-99); MEAN PLATELET VOLUME 10.7 FL (7.4-10.4); MONOCYTES # (AUTO) 0.5 X 10^3 (0.0-1.0); MONOCYTES % (AUTO) 9 % (0-12); NEUTROPHILS # (AUTO) 3.6 X 10^3 (1.8-7.8); NEUTROPHILS % (AUTO) 70 % (42-75); PLATELET COUNT 163 10^3/uL (130-400); RED CELL DISTRIBUTION WIDTH 14.3 % (10.0-14.5); WHITE BLOOD COUNT 5.1 10^3/uL (4.3-11.0)
[2019-07-25 14:40] LABS: BASOPHILS % (AUTO) 1 % (0-10); EOSINOPHILS # (AUTO) 0.4 10^3/uL (0.0-0.3); EOSINOPHILS % (AUTO) 7 % (0-10); HEMATOCRIT 28 % (35-52); LYMPHOCYTES # (AUTO) 1.1 X 10^3 (1.0-4.0); LYMPHOCYTES % (AUTO) 20 % (12-44); MEAN CORPUSCULAR HEMOGLOBIN 31 PG (25-34); MEAN CORPUSCULAR HGB CONC 32 G/DL (32-36); MEAN CORPUSCULAR VOLUME 95 FL (80-99); MONOCYTES # (AUTO) 0.5 X 10^3 (0.0-1.0); MONOCYTES % (AUTO) 9 % (0-12); NEUTROPHILS # (AUTO) 3.5 X 10^3 (1.8-7.8); NEUTROPHILS % (AUTO) 64 % (42-75); PLATELET COUNT 210 10^3/uL (130-400); RED CELL DISTRIBUTION WIDTH 15.4 % (10.0-14.5); WHITE BLOOD COUNT 5.5 10^3/uL (4.3-11.0)
[2019-07-25 15:26] LABS: ALBUMIN 3.7 GM/DL (3.2-4.5); BILIRUBIN,TOTAL 0.7 MG/DL (0.1-1.0); CALCIUM 9.4 MG/DL (8.5-10.1); CREATININE SERUM 2.61 MG/DL (0.60-1.30); POTASSIUM 3.2 MMOL/L (3.6-5.0); TOTAL PROTEIN 7.1 GM/DL (6.4-8.2)
[2019-08-01 13:32] LABS: BASOPHILS % (AUTO) 1 % (0-10); EOSINOPHILS # (AUTO) 0.3 10^3/uL (0.0-0.3); EOSINOPHILS % (AUTO) 6 % (0-10); HEMATOCRIT 25 % (35-52); HEMOGLOBIN 7.8 G/DL (11.5-16.0); LYMPHOCYTES % (AUTO) 19 % (12-44); MEAN CORPUSCULAR HEMOGLOBIN 31 PG (25-34); MEAN CORPUSCULAR HGB CONC 32 G/DL (32-36); MEAN CORPUSCULAR VOLUME 97 FL (80-99); MEAN PLATELET VOLUME 9.6 FL (7.4-10.4); MONOCYTES # (AUTO) 0.6 X 10^3 (0.0-1.0); MONOCYTES % (AUTO) 11 % (0-12); NEUTROPHILS # (AUTO) 3.4 X 10^3 (1.8-7.8); NEUTROPHILS % (AUTO) 64 % (42-75); PLATELET COUNT 142 10^3/uL (130-400); RED CELL DISTRIBUTION WIDTH 14.8 % (10.0-14.5); WHITE BLOOD COUNT 5.4 10^3/uL (4.3-11.0)
[2019-08-08 13:50] LABS: BASOPHILS # (AUTO) 0.1 10^3/uL (0.0-0.1); BASOPHILS % (AUTO) 1 % (0-10); EOSINOPHILS # (AUTO) 0.4 10^3/uL (0.0-0.3); EOSINOPHILS % (AUTO) 7 % (0-10); HEMATOCRIT 23 % (35-52); HEMOGLOBIN 7.2 G/DL (11.5-16.0); LYMPHOCYTES % (AUTO) 17 % (12-44); MEAN CORPUSCULAR HEMOGLOBIN 31 PG (25-34); MEAN CORPUSCULAR HGB CONC 31 G/DL (32-36); MEAN CORPUSCULAR VOLUME 100 FL (80-99); MEAN PLATELET VOLUME 9.6 FL (7.4-10.4); MONOCYTES # (AUTO) 0.5 X 10^3 (0.0-1.0); MONOCYTES % (AUTO) 9 % (0-12); NEUTROPHILS # (AUTO) 3.8 X 10^3 (1.8-7.8); NEUTROPHILS % (AUTO) 66 % (42-75); PLATELET COUNT 163 10^3/uL (130-400); RED CELL DISTRIBUTION WIDTH 16.2 % (10.0-14.5); WHITE BLOOD COUNT 5.8 10^3/uL (4.3-11.0)
[2019-08-15 13:25] LABS: BASOPHILS % (AUTO) 1 % (0-10); EOSINOPHILS # (AUTO) 0.4 10^3/uL (0.0-0.3); EOSINOPHILS % (AUTO) 8 % (0-10); HEMATOCRIT 22 % (35-52); LYMPHOCYTES # (AUTO) 1.1 X 10^3 (1.0-4.0); LYMPHOCYTES % (AUTO) 25 % (12-44); MEAN CORPUSCULAR HEMOGLOBIN 31 PG (25-34); MEAN CORPUSCULAR HGB CONC 31 G/DL (32-36); MEAN CORPUSCULAR VOLUME 100 FL (80-99); MONOCYTES # (AUTO) 0.5 X 10^3 (0.0-1.0); MONOCYTES % (AUTO) 11 % (0-12); NEUTROPHILS # (AUTO) 2.6 X 10^3 (1.8-7.8); NEUTROPHILS % (AUTO) 56 % (42-75); PLATELET COUNT 163 10^3/uL (130-400); RED CELL DISTRIBUTION WIDTH 15.9 % (10.0-14.5); WHITE BLOOD COUNT 4.6 10^3/uL (4.3-11.0)
[2019-08-15 13:27] LABS: HEMOGLOBIN 6.7 G/DL (11.5-16.0)
[2019-08-22 09:51] LABS: BASOPHILS % (AUTO) 1 % (0-10); EOSINOPHILS # (AUTO) 0.2 10^3/uL (0.0-0.3); EOSINOPHILS % (AUTO) 5 % (0-10); HEMATOCRIT 21 % (35-52); LYMPHOCYTES % (AUTO) 30 % (12-44); MEAN CORPUSCULAR HEMOGLOBIN 31 PG (25-34); MEAN CORPUSCULAR HGB CONC 31 G/DL (32-36); MEAN CORPUSCULAR VOLUME 100 FL (80-99); MEAN PLATELET VOLUME 10.2 FL (7.4-10.4); MONOCYTES # (AUTO) 0.4 X 10^3 (0.0-1.0); MONOCYTES % (AUTO) 10 % (0-12); NEUTROPHILS # (AUTO) 1.9 X 10^3 (1.8-7.8); NEUTROPHILS % (AUTO) 55 % (42-75); PLATELET COUNT 138 10^3/uL (130-400); RED CELL DISTRIBUTION WIDTH 16.7 % (10.0-14.5); WHITE BLOOD COUNT 3.5 10^3/uL (4.3-11.0)
[2019-08-22 09:52] LABS: HEMOGLOBIN 6.5 G/DL (11.5-16.0)
[2019-08-22 10:00] LABS: BILIRUBIN,URINE NEGATIVE (NEGATIVE); CLARITY,URINE CLEAR; COLOR,URINE YELLOW; GLUCOSE, URINE (UA) NEGATIVE (NEGATIVE); KETONES,URINE NEGATIVE (NEGATIVE); LEUKOCYTE ESTERASE ,URINE TRACE (NEGATIVE); NITRITE,URINE NEGATIVE (NEGATIVE); PROTEIN,URINE NEGATIVE (NEGATIVE)
[2019-08-22 10:13] LABS: BACTERIA,URINE FEW /HPF; WBC,URINE 0-2 /HPF
[2019-08-22 10:13] LABS: ALBUMIN 3.5 GM/DL (3.2-4.5); CALCIUM 9.1 MG/DL (8.5-10.1); CREATININE SERUM 2.08 MG/DL (0.60-1.30); PHOSPHORUS 3.6 MG/DL (2.3-4.7)
[2019-08-22 10:23] LABS: URINE CREATININE FOR RATIO 53 MG/DL (30-125); URINE PROTEIN FOR RATIO ONLY < 6 MG/DL (6-12)
[2019-08-29 11:31] LABS: BASOPHILS % (AUTO) 1 % (0-10); EOSINOPHILS # (AUTO) 0.4 10^3/uL (0.0-0.3); EOSINOPHILS % (AUTO) 8 % (0-10); HEMATOCRIT 27 % (35-52); HEMOGLOBIN 8.8 G/DL (11.5-16.0); LYMPHOCYTES # (AUTO) 1.3 X 10^3 (1.0-4.0); LYMPHOCYTES % (AUTO) 25 % (12-44); MEAN CORPUSCULAR HEMOGLOBIN 31 PG (25-34); MEAN CORPUSCULAR HGB CONC 32 G/DL (32-36); MEAN CORPUSCULAR VOLUME 97 FL (80-99); MONOCYTES # (AUTO) 0.7 X 10^3 (0.0-1.0); MONOCYTES % (AUTO) 13 % (0-12); NEUTROPHILS # (AUTO) 2.8 X 10^3 (1.8-7.8); NEUTROPHILS % (AUTO) 53 % (42-75); PLATELET COUNT 186 10^3/uL (130-400); RED CELL DISTRIBUTION WIDTH 14.9 % (10.0-14.5); WHITE BLOOD COUNT 5.3 10^3/uL (4.3-11.0)
[2019-09-05 11:20] LABS: BASOPHILS % (AUTO) 1 % (0-10); EOSINOPHILS # (AUTO) 0.3 10^3/uL (0.0-0.3); EOSINOPHILS % (AUTO) 7 % (0-10); LYMPHOCYTES % (AUTO) 27 % (12-44); MEAN CORPUSCULAR HEMOGLOBIN 31 PG (25-34); MEAN CORPUSCULAR HGB CONC 32 G/DL (32-36); MEAN CORPUSCULAR VOLUME 100 FL (80-99); MEAN PLATELET VOLUME 10.3 FL (7.4-10.4); MONOCYTES # (AUTO) 0.4 X 10^3 (0.0-1.0); MONOCYTES % (AUTO) 10 % (0-12); NEUTROPHILS % (AUTO) 55 % (42-75); PLATELET COUNT 112 10^3/uL (130-400); RED CELL DISTRIBUTION WIDTH 14.7 % (10.0-14.5); WHITE BLOOD COUNT 3.6 10^3/uL (4.3-11.0)
[2019-09-05 11:22] LABS: HEMATOCRIT 20 % (35-52); HEMOGLOBIN 6.3 G/DL (11.5-16.0)
[2019-09-05 11:33] LABS: ALBUMIN 3.4 GM/DL (3.2-4.5); BILIRUBIN,TOTAL 0.3 MG/DL (0.1-1.0); CALCIUM 8.5 MG/DL (8.5-10.1); CREATININE SERUM 2.62 MG/DL (0.60-1.30); POTASSIUM 4.4 MMOL/L (3.6-5.0); TOTAL PROTEIN 6.1 GM/DL (6.4-8.2)
[2019-09-05 12:12] LABS: BILIRUBIN,URINE NEGATIVE (NEGATIVE); CLARITY,URINE CLEAR; COLOR,URINE YELLOW; GLUCOSE, URINE (UA) NEGATIVE (NEGATIVE); KETONES,URINE NEGATIVE (NEGATIVE); LEUKOCYTE ESTERASE ,URINE NEGATIVE (NEGATIVE); NITRITE,URINE NEGATIVE (NEGATIVE); PROTEIN,URINE NEGATIVE (NEGATIVE)
[2019-09-05 12:19] LABS: BACTERIA,URINE TRACE /HPF; WBC,URINE RARE /HPF
[2019-09-09 09:43] LABS: BASOPHILS % (AUTO) 1 % (0-10); EOSINOPHILS # (AUTO) 0.2 10^3/uL (0.0-0.3); EOSINOPHILS % (AUTO) 6 % (0-10); LYMPHOCYTES # (AUTO) 0.9 X 10^3 (1.0-4.0); LYMPHOCYTES % (AUTO) 23 % (12-44); MEAN CORPUSCULAR HEMOGLOBIN 32 PG (25-34); MEAN CORPUSCULAR HGB CONC 32 G/DL (32-36); MEAN CORPUSCULAR VOLUME 100 FL (80-99); MEAN PLATELET VOLUME 10.3 FL (7.4-10.4); MONOCYTES # (AUTO) 0.5 X 10^3 (0.0-1.0); MONOCYTES % (AUTO) 12 % (0-12); NEUTROPHILS # (AUTO) 2.3 X 10^3 (1.8-7.8); NEUTROPHILS % (AUTO) 58 % (42-75); PLATELET COUNT 134 10^3/uL (130-400); RED CELL DISTRIBUTION WIDTH 15.1 % (10.0-14.5)
[2019-09-09 09:49] LABS: HEMOGLOBIN 6.2 G/DL (11.5-16.0)
[2019-09-09 09:50] LABS: HEMATOCRIT 20 % (35-52)
[2019-09-12 10:27] LABS: BASOPHILS % (AUTO) 1 % (0-10); EOSINOPHILS # (AUTO) 0.3 10^3/uL (0.0-0.3); EOSINOPHILS % (AUTO) 7 % (0-10); HEMATOCRIT 22 % (35-52); LYMPHOCYTES # (AUTO) 0.9 X 10^3 (1.0-4.0); LYMPHOCYTES % (AUTO) 20 % (12-44); MEAN CORPUSCULAR HEMOGLOBIN 31 PG (25-34); MEAN CORPUSCULAR HGB CONC 32 G/DL (32-36); MEAN CORPUSCULAR VOLUME 97 FL (80-99); MEAN PLATELET VOLUME 10.6 FL (7.4-10.4); MONOCYTES # (AUTO) 0.5 X 10^3 (0.0-1.0); MONOCYTES % (AUTO) 12 % (0-12); NEUTROPHILS # (AUTO) 2.7 X 10^3 (1.8-7.8); NEUTROPHILS % (AUTO) 61 % (42-75); PLATELET COUNT 164 10^3/uL (130-400); RED CELL DISTRIBUTION WIDTH 15.9 % (10.0-14.5); WHITE BLOOD COUNT 4.4 10^3/uL (4.3-11.0)
[2019-09-12 10:29] LABS: HEMOGLOBIN 6.9 G/DL (11.5-16.0)
[2019-09-19 11:00] LABS: BASOPHILS % (AUTO) 1 % (0-10); EOSINOPHILS # (AUTO) 0.2 10^3/uL (0.0-0.3); EOSINOPHILS % (AUTO) 6 % (0-10); HEMATOCRIT 22 % (35-52); LYMPHOCYTES # (AUTO) 0.9 X 10^3 (1.0-4.0); LYMPHOCYTES % (AUTO) 24 % (12-44); MEAN CORPUSCULAR HEMOGLOBIN 31 PG (25-34); MEAN CORPUSCULAR HGB CONC 32 G/DL (32-36); MEAN CORPUSCULAR VOLUME 98 FL (80-99); MEAN PLATELET VOLUME 10.4 FL (7.4-10.4); MONOCYTES # (AUTO) 0.4 X 10^3 (0.0-1.0); MONOCYTES % (AUTO) 11 % (0-12); NEUTROPHILS # (AUTO) 2.2 X 10^3 (1.8-7.8); NEUTROPHILS % (AUTO) 58 % (42-75); PLATELET COUNT 131 10^3/uL (130-400); RED CELL DISTRIBUTION WIDTH 14.9 % (10.0-14.5); WHITE BLOOD COUNT 3.8 10^3/uL (4.3-11.0)
[2019-09-22 09:27] LABS: BASOPHILS % (AUTO) 1 % (0-10); EOSINOPHILS # (AUTO) 0.3 10^3/uL (0.0-0.3); EOSINOPHILS % (AUTO) 7 % (0-10); LYMPHOCYTES % (AUTO) 26 % (12-44); MEAN CORPUSCULAR HEMOGLOBIN 31 PG (25-34); MEAN CORPUSCULAR HGB CONC 31 G/DL (32-36); MEAN CORPUSCULAR VOLUME 102 FL (80-99); MEAN PLATELET VOLUME 10.6 FL (7.4-10.4); MONOCYTES # (AUTO) 0.4 X 10^3 (0.0-1.0); MONOCYTES % (AUTO) 10 % (0-12); NEUTROPHILS # (AUTO) 2.1 X 10^3 (1.8-7.8); NEUTROPHILS % (AUTO) 56 % (42-75); PLATELET COUNT 139 10^3/uL (130-400); RED CELL DISTRIBUTION WIDTH 14.8 % (10.0-14.5); WHITE BLOOD COUNT 3.8 10^3/uL (4.3-11.0)
[2019-09-22 09:28] LABS: HEMATOCRIT 19 % (35-52)
[2019-09-26 12:32] LABS: BASOPHILS % (AUTO) 1 % (0-10); EOSINOPHILS # (AUTO) 0.3 10^3/uL (0.0-0.3); EOSINOPHILS % (AUTO) 8 % (0-10); LYMPHOCYTES # (AUTO) 0.8 X 10^3 (1.0-4.0); LYMPHOCYTES % (AUTO) 24 % (12-44); MEAN CORPUSCULAR HEMOGLOBIN 30 PG (25-34); MEAN CORPUSCULAR HGB CONC 31 G/DL (32-36); MEAN CORPUSCULAR VOLUME 99 FL (80-99); MEAN PLATELET VOLUME 9.6 FL (7.4-10.4); MONOCYTES # (AUTO) 0.3 X 10^3 (0.0-1.0); MONOCYTES % (AUTO) 11 % (0-12); NEUTROPHILS # (AUTO) 1.8 X 10^3 (1.8-7.8); NEUTROPHILS % (AUTO) 56 % (42-75); PLATELET COUNT 125 10^3/uL (130-400); RED CELL DISTRIBUTION WIDTH 15.5 % (10.0-14.5); WHITE BLOOD COUNT 3.2 10^3/uL (4.3-11.0)
[2019-09-26 12:35] LABS: HEMATOCRIT 20 % (35-52); HEMOGLOBIN 6.1 G/DL (11.5-16.0)
[2019-09-30 10:09] LABS: BASOPHILS % (AUTO) 1 % (0-10); EOSINOPHILS # (AUTO) 0.2 10^3/uL (0.0-0.3); EOSINOPHILS % (AUTO) 5 % (0-10); HEMATOCRIT 23 % (35-52); HEMOGLOBIN 7.3 G/DL (11.5-16.0); LYMPHOCYTES % (AUTO) 27 % (12-44); MEAN CORPUSCULAR HEMOGLOBIN 31 PG (25-34); MEAN CORPUSCULAR HGB CONC 32 G/DL (32-36); MEAN CORPUSCULAR VOLUME 98 FL (80-99); MEAN PLATELET VOLUME 10.7 FL (7.4-10.4); MONOCYTES # (AUTO) 0.4 X 10^3 (0.0-1.0); MONOCYTES % (AUTO) 11 % (0-12); NEUTROPHILS # (AUTO) 2.1 X 10^3 (1.8-7.8); NEUTROPHILS % (AUTO) 56 % (42-75); PLATELET COUNT 136 10^3/uL (130-400); RED CELL DISTRIBUTION WIDTH 15.4 % (10.0-14.5); WHITE BLOOD COUNT 3.7 10^3/uL (4.3-11.0)
[2019-10-07 10:24] LABS: BASOPHILS % (AUTO) 1 % (0-10); EOSINOPHILS # (AUTO) 0.3 10^3/uL (0.0-0.3); EOSINOPHILS % (AUTO) 7 % (0-10); HEMATOCRIT 22 % (35-52); LYMPHOCYTES % (AUTO) 24 % (12-44); MEAN CORPUSCULAR HEMOGLOBIN 31 PG (25-34); MEAN CORPUSCULAR HGB CONC 31 G/DL (32-36); MEAN CORPUSCULAR VOLUME 99 FL (80-99); MEAN PLATELET VOLUME 9.8 FL (7.4-10.4); MONOCYTES # (AUTO) 0.5 X 10^3 (0.0-1.0); MONOCYTES % (AUTO) 11 % (0-12); NEUTROPHILS # (AUTO) 2.3 X 10^3 (1.8-7.8); NEUTROPHILS % (AUTO) 57 % (42-75); PLATELET COUNT 136 10^3/uL (130-400)
[~2019-10-14 10:19] MED LIST changes: +CYANOCOBALAMIN INJ 1000 MCG/ML (CANCER CENTER) ONE; +DARBEPOETIN 40 MCG/ML (ARANESP) 1 ML VIAL SC SCH; +FERRIC CARBOXYMALTOSE (CANCER) 750 MG in NS (IVPB) CANCER CENTER 250 ML IV SCH; +NS (IVPB) CANCER CENTER 250 ML ONE; +NS IV 500 ML (CANCER CENTER) 500 ML ONE
[2019-10-14 10:54] LABS: BASOPHILS % (AUTO) 1 % (0-10); EOSINOPHILS # (AUTO) 0.4 10^3/uL (0.0-0.3); EOSINOPHILS % (AUTO) 10 % (0-10); HEMATOCRIT 22 % (35-52); LYMPHOCYTES # (AUTO) 1.1 X 10^3 (1.0-4.0); LYMPHOCYTES % (AUTO) 28 % (12-44); MEAN CORPUSCULAR HEMOGLOBIN 31 PG (25-34); MEAN CORPUSCULAR HGB CONC 32 G/DL (32-36); MEAN CORPUSCULAR VOLUME 97 FL (80-99); MEAN PLATELET VOLUME 10.4 FL (7.4-10.4); MONOCYTES # (AUTO) 0.4 X 10^3 (0.0-1.0); MONOCYTES % (AUTO) 11 % (0-12); NEUTROPHILS # (AUTO) 1.9 X 10^3 (1.8-7.8); NEUTROPHILS % (AUTO) 50 % (42-75); PLATELET COUNT 185 10^3/uL (130-400); RED CELL DISTRIBUTION WIDTH 13.5 % (10.0-14.5); WHITE BLOOD COUNT 3.8 10^3/uL (4.3-11.0)
[2019-10-14] MEDS ORDERED: NS IV 500 ML (CANCER CENTER) 500 ML ONE (11:03)
== END 2019-10-16 | disposition home or self-care (01) ==
LOC: ONC 10:19
PROVIDERS: ATTEND Internal Medicine Hematology & Oncology
DX: E11.22 Type 2 diabetes mellitus with diabetic chronic kidney disease (principal); I13.0 Hypertensive heart and chronic kidney disease with heart failure and stage 1 through stage 4 chronic kidney disease, or unspecified chronic kidney disease; N18.4 Chronic kidney disease, stage 4 (severe); D63.1 Anemia in chronic kidney disease; E53.8 Deficiency of other specified B group vitamins; D50.9 Iron deficiency anemia, unspecified; I25.10 Atherosclerotic heart disease of native coronary artery without angina pectoris; E03.9 Hypothyroidism, unspecified; K29.51 Unspecified chronic gastritis with bleeding; I48.91 Unspecified atrial fibrillation; K74.60 Unspecified cirrhosis of liver; I50.30 Unspecified diastolic (congestive) heart failure; K64.9 Unspecified hemorrhoids; K44.9 Diaphragmatic hernia without obstruction or gangrene; E78.5 Hyperlipidemia, unspecified; E66.9 Obesity, unspecified; M19.90 Unspecified osteoarthritis, unspecified site; I47.1 Supraventricular tachycardia; K63.5 Polyp of colon; K31.811 Angiodysplasia of stomach and duodenum with bleeding; Z79.899 Other long term (current) drug therapy; Z80.0 Family history of malignant neoplasm of digestive organs; Z68.33 Body mass index [BMI] 33.0-33.9, adult
CPT/HCPCS: 36430; 36591; 80053; 80061; 80069; 81000; 82140; 82570; 82728; 84156; 84443; 85025; 86850; 86900; 86901; 86902; 86920; 86922; 96365; 96372

== ENCOUNTER 2019-10-26 08:33 | Inpatient (IN) | payer MEDICARE ==
[~2019-10-26] VITALS: Ht 170 cm; Wt 81.6 kg
[~2019-10-26 08:33] MED LIST changes: -CYANOCOBALAMIN INJ 1000 MCG/ML (CANCER CENTER) ONE; -DARBEPOETIN 40 MCG/ML (ARANESP) 1 ML VIAL SC SCH; -FERRIC CARBOXYMALTOSE (CANCER) 750 MG in NS (IVPB) CANCER CENTER 250 ML IV SCH; -NS (IVPB) CANCER CENTER 250 ML ONE; -NS IV 500 ML (CANCER CENTER) 500 ML ONE; -TIZA2TAB4 PO; +TIZA2TAB7 PO
[2019-10-26] MEDS ORDERED: NS IV 500 ML 500 ML IV ONE (08:40)
--- NOTE | 2019-10-26 08:40 | NUR ---
UNABLE TO DUE NIH DUE TO UNRESPONSIVE STATE.
--- OUTSIDE RECORDS SUMMARY | 2019-10-26 08:51 | XMS REPORT | Encounter Summary ---
Author Author [facility] Organization [facility] Address Unknown Phone Unavailable Care Team Providers Care Healthcare Financial Analyst Name Role Phone Carla Wilson MD PCP Naima Field MD Unavailable Winnie Jorge MD Unavailable Emiliano Rodriguez PERINATOLOGY PHYSICIAN-GROUP CONTRACT ANALYST 7 Felisa Sneed MD 3 Encounter Details Care Team Description Date Type Department Rian Ruano MA 07/28/2019 Documentation [facility] [id number] [place] [address] Social History Date Tobacco Use Types Packs/Day [...] Results * PROTIME INR (PT) (07/28/2019) Pathologist [facility] INR 1.1 0.8 - 1.4 OTHER OUTSIDE LAB Protime 14.2 OTHER OUTSIDE LAB Specimen Blood - Blood Performing Organization Address City/[facility] one Number OTHER OUTSIDE LAB * CBC AND DIFF (07/28/2019) Pathologist [facility] White Blood 3.4 (L) 4.3 [...] is n ot available. Performing Organization Address City/[facility] Ph one Number OTHER OUTSIDE LAB * COMPREHENSIVE METABOLIC PANEL (07/28/2019) Pathologist [facility] Sodium 138 OTHER OUTSIDE LAB Potassium 4.3 [...] LAB eGFR Non 29 OTHER OUTSIDE LAB Romanian eGFR OTHER OUTSIDE Romanian LAB Anion Gap 5 OTHER OUTSIDE LAB BUN/Creatinine 14 OTHER OUTSIDE Ratio LAB Specimen Blood - Blood Performing Organization Address [facility] one Number OTHER OUTSIDE LAB documented in this encounter Visit Diagnoses Not on filedocumented in this encounter
--- OUTSIDE RECORDS SUMMARY | 2019-10-26 08:51 | XMS REPORT | Clinical Summary ---
Author Author [facility] Organization [facility] Address Unknown Phone Unavailable Care Team Providers Care Director Behavioral Health Name Role Phone Carla Wilson MD PCP Naima Field MD Unavailable Winnie Jorge MD Unavailable Emiliano Rodriguez APRN-ORE STORAGE DRIER 7 Felisa Sneed MD 3 Source Comments Some departments are not documenting in the electronic medical record. If you d o not see the information that you expected, contact Release of Information in [facility] Health Information Management department at [phone] for further assistan ce in locating additional records.[facility] Allergies Comments Active Allergy Reactions Severity [...] 6 hours as needed for Sleep. Active bbovpczy-dwyszejgo-T-doug Take 500 mg 0 anese 500-400-2-0.33 mg [...] kidney injury) 02/18/2018 CAD (coronary artery disease), [place] coronary artery 02/16/2018 Overview: 02/16/18: CABG x4 [...] Added automatically from request for carol soria [id number] Resolved Problems Problem Noted Date Resolved Date [...] Team Description Date Type Specialty Antolin Erazo Nausea 10/05/2019 Telephone Gastroenterology Lynette Diana MD Other (Nurse, Please Call.) 10/04/2019 Telephone Hepatology Tracie Stuart RN Lab Results 09/27/2019 Telephone Cardiology Rina Ruano MA Labs Only 09/27/2019 Documentation Cardiology Rina Ruano MA 07/28/2019 Documentation Cardiology from Last 3 Months Immunizations [...] Comments Vital Sign 112/40 07/05/2019 9:11 AM IN PROCESSING INSTRUCTOR Blood Pressure 77 07/05/2019 9:11 AM IN PROCESSING INSTRUCTOR Pulse 36.4 C (97.5 F) 07/05/2019 8:40 AM IN PROCESSING INSTRUCTOR Temperature 16 03/08/2019 2:34 PM CDT Respiratory Rate 100% 07/05/2019 8:40 AM IN PROCESSING INSTRUCTOR Oxygen Saturation - - Inhaled Oxygen Concentration 93.4 kg (206 lb) 07/05/2019 9:11 AM IN PROCESSING INSTRUCTOR Weight 162.6 cm (5' 4") 07/05/2019 9:11 AM IN PROCESSING INSTRUCTOR Height 35.36 07/05/2019 9:11 AM IN PROCESSING INSTRUCTOR Body Mass Index Plan of Treatment Health Maintenance Due Date Last Done Comments MEDICARE ANNUAL WELLNESS 1955 VISIT DILATED EYE EXAM 1975 DTAP/TDAP VACCINES (1 - 1975 Tdap) FOOT EXAM 1975 MICROALBUMIN 1975 PHYSICAL (COMPREHENSIVE) 1975 EXAM PNEUMONIA VACCINE (DM) 1975 CERVICAL CANCER SCREENING 1978 BREAST CANCER SCREENING 1997 SHINGLES RECOMBINANT 2007 VACCINE (1 of 2) HBA1C 08/12/2018 02/12/2018 INFLUENZA VACCINE 03/15/2020 03/15/2017 (Previously completed), 04/09/2000, 03/27/1999, Additional history exists COLORECTAL CANCER 09/07/2028 09/07/2018, SCREENING 04/07/2018 HEPATITIS C SCREENING Completed 02/15/2018 HIV SCREENING Completed 04/29/2018 Implants Device Identifier Shelf Expiration Date Model / Serial / L ot Implanted Type Area Manufactur er Port Port Description:Port placed at OSH. Power injectable confirmed by card. [employer]OMPSON SUTTON [id number] / [id number] / [id number] Plate Acutie Sternal Closure - N/A: Sternum ACT [id number] [employer] Implanted: Qty: 2 on 02/16/2018 by Lance Conte MD at [facility] [id number] / [id number] / [id number] Plate Acutie Sternal Closure - N/A: Sternum ACT [id number] [employer] Implanted: Qty: 1 on 02/16/2018 by Lance Conte MD at [facility] Procedures Comments Procedure Name Priority Date/Time [...] 3 Months Results * CBC (09/26/2019) Pathologist [facility] White Blood 3.8 (L) 4.3 - 11.0 [...] Specimen Blood - Blood Performing Organization Address [facility] Ph one Number MAIN LAB [address] [place] [address] * BNP (B-TYPE NATRIURETIC PEPTI) (09/26/2019) Pathologist [facility] B Type 376.1 (H) <100.0 [facility] MAIN LAB Natriuretic Peptide BNP NT pro [facility] MAIN LAB Specimen Blood - Blood Performing Organization Address [facility] Number MA[facility] LAB [address] [place] [address] * MAGNESIUM (09/26/2019) Pathologist [facility] Magnesium 2.6 (H) 1.6 - 2.4 [facility] MAIN LAB Specimen Blood - Blood Narrative Performed At This result has an attachment that is n ot available. Performing Organization Address [facility] Ph one Number MAIN LAB [address] [place] [address] * BASIC METABOLIC PANEL (09/26/2019) Pathologist [facility] Sodium 141 [facility] MAIN LAB Potassium 4.6 [...] [facility] MAIN LAB eGFR [facility] MAIN [facility] Vietnamese Anion Gap 9 [facility] MA[facility] BUN/Creatinine 19 [facility] MA[facility] Ratio Specimen Blood - Blood Performing Organization Address [facility] Ph one Number [facility] MA[facility] [address] [place] [address] * PROTIME INR (PT) (07/28/2019) Pathologist [facility] INR 1.1 0.8 - 1.4 OTHER OUTSIDE LAB Protime 14.2 OTHER OUTSIDE LAB Specimen Blood - Blood Performing Organization Address City/[facility] one Number OTHER OUTSIDE LAB * CBC AND DIFF (07/28/2019) Pathologist [facility] White Blood 3.4 (L) 4.3 - 11.0 [...] is n ot available. Performing Organization Address City/[facility] Ph one Number OTHER OUTSIDE [...] LAB eGFR Non 29 OTHER OUTSIDE LAB Vietnamese eGFR OTHER OUTSIDE Vietnamese LAB Anion Gap 5 OTHER OUTSIDE LAB BUN/Creatinine 14 OTHER OUTSIDE Ratio LAB Specimen Blood - Blood Performing Organization Address City/State/Zipcode Ph one Number OTHER OUTSIDE LAB from Last 3 Months Insurance Type Payer Benefit Subscriber ID Effective Phone Address Plan / Dates Group Medicare MEDICARE MEDICARE xxxxxxxxxxx 2018-P PART A AND resent B Advance Directives Patient Repairer Pump Explanation Type Date Recorded Advance 02/16/2018 9:31 [...]
--- OUTSIDE RECORDS SUMMARY | 2019-10-26 08:51 | XMS REPORT | Encounter Summary ---
Author Author [facility] Organization [facility] Address Unknown Phone Unavailable Care Team Providers Care Hospitality Ambassador Name Role Phone Carla Wilson MD PCP Naima Field MD Unavailable Winnie Jorge MD Unavailable Emiliano Rodriguez VOLUNTEER SERVICES DIRECTOR-PET TRAINING INSTRUCTOR 7 Felisa Sneed MD 3 Reason for Visit * Reason Comments Palliative Care * Consult, Test & Treat (Routine) Referred By Contact Referred To Contact Status Reason Specialty Diagnoses / Procedures Felisa Sneed MD 4000 [facility] [place] [address] Pending Review Procedures REQUEST FOR CARDIOLOGY APPOINTMENT Encounter Details Care Team Description Date Type Department Roland Hernández VOLUNTEER SERVICES DIRECTOR-PET TRAINING INSTRUCTOR [id number] [place], [place] [id number] Palliative Care 07/05/2019 Office Visit [facility] [address] [address] Social History Date Tobacco Use Types Packs/Day [...] Comments Vital Sign 112/40 07/05/2019 9:11 AM HYDROELECTRIC PLANT ELECTRICIAN Blood Pressure 77 07/05/2019 9:11 AM HYDROELECTRIC PLANT ELECTRICIAN Pulse - - Temperature - - Respiratory Rate - - Oxygen Saturation - - Inhaled Oxygen Concentration 93.4 kg (206 lb) 07/05/2019 9:11 AM HYDROELECTRIC PLANT ELECTRICIAN Weight 162.6 cm (5' 4") 07/05/2019 9:11 AM HYDROELECTRIC PLANT ELECTRICIAN Height 35.36 07/05/2019 9:11 AM HYDROELECTRIC PLANT ELECTRICIAN Body Mass Index documented in this encounter [...] this encounter Progress Notes * Roland Hernández, SAMANTHA-PET TRAINING INSTRUCTOR - 07/05/2019 9:30 AM HYDROELECTRIC PLANT ELECTRICIAN PALLIATIVE CARE OUTPATIENT VISIT Date of Service: [...] needs to PCP/specilsits unless HF becomes primary cart driver of decompensa tion in health status. Follow-up: PRN Thank you for the opportunity to participate in the care of this patient. Please call with any questions or concerns. Roland Hernández APRN, PET TRAINING INSTRUCTOR-C Palliative Care--Outpatient Heart Failure Pager: Office: (Total time spent 45 minutes [id number] with patient & . Estimated counseling time [...] Bleeding disorder (HCC) CAD (coronary artery disease), [place] coronary artery 02/16/2018 Chronic diastolic heart failure (HCC) 03/31/2018 Coronary artery disease Diabetes mellitus (HCC) Type II Essential hypertension 02/23/2018 Hypertension Stomach disorder Vision decreased Surgical History: Surgical History: Procedure Laterality Date HX HEART CATHETERIZATION 2017 CORONARY STENT PLACEMENT 2016 CORONARY ARTERY BYPASS WITH ARTERIAL GRAFT - 4 GRAFTS (Internal Mammary Torie ry and Endovascular Vein Edison) N/A 02/16/2018 Performed by Lance Pal MD [...] tablet Take 1 mg by mouth daily. tdagxkrq-mwilvtsdq-W-manganese 500-400-2-0.33 mg cap Take 500 mg by [...] - Heart Failure: MD Roland Mackay APRN [address] [facility] [place] [address] [phone] Phone contact: [phone] OELECTRIC PLANT ELECTRICIAN documented in this encounter Miscellaneous Notes * Advanced Care Planning/Resuscitation Status - Roland Hernández APRN-NP - 07/05/2019 9:30 AM HYDROELECTRIC PLANT ELECTRICIAN Advance Care Planning/Resuscitation Status Conversation Individuals present for advance care planning conversation: Patient, (), Edgar Palliative PET TRAINING INSTRUCTOR Pertinent details of conversation (including direct quotes [...] sepa rate billable note). Roland Hernández APRN PET TRAINING INSTRUCTOR-C Palliative Care--Outpatient Heart Failure Pager: Office: OELECTRIC PLANT ELECTRICIAN documented in this encounter Plan of Treatment [...]
--- OUTSIDE RECORDS SUMMARY | 2019-10-26 08:51 | XMS REPORT | Encounter Summary ---
Author Author [facility] Organization [facility] Address Unknown Phone Unavailable Care Team Providers Care Electrician Manager Name Role Phone Carla Wilson MD PCP Naima Field MD Unavailable Winnie Jorge MD Unavailable Emiliano Rodriguez HEAD AUTOMATIC SAWYER-MEDICAL LEAD 7 Felisa Sneed MD 3 Reason for Visit * Reason Comments Other Nurse, Please Call. Encounter Details Care Team Description Date Type Department Lynette Diana MD 4000 [facility] [address] [place] [address] Other (Nurse, Please Call.) 10/04/2019 Telephone The [facility] [address] [address] Social History Date Tobacco Use [...] Telephone Encounter - Glo Us RN - 10/04/2019 3:44 PM CDT Returned call- patient requested phenergan due to chronic nausea. Requested pat mic call her seamer panty hose. * Telephone Encounter - Lauryn Crum - 10/04/2019 3:07 PM CDT Vm 3:04pm Please have Dr Diana's nurse call. [phone] documented in this encounter Plan of Treatment Not on filedocumented as of this encounter Visit Diagnoses Not on filedocumented in this encounter
--- OUTSIDE RECORDS SUMMARY | 2019-10-26 08:51 | XMS REPORT | Encounter Summary ---
Author Author [facility] Organization [facility] Address Unknown Phone Unavailable Care Team Providers Care Drop Hammer Set Up Operator Name Role Phone Carla Wilson MD PCP Naima Field MD Unavailable Winnie Jorge MD Unavailable Emiliano Rodriguez POTTERY MACHINE OPERATOR-KNURLING MACHINE TENDER 7 Felisa Sneed MD 3 Reason for Visit * Reason Comments Nausea Encounter Details Care Team Description Date Type Department Antolin Erazo 4000 [place] [address] Nausea 10/05/[address] [address] Social History Date Tobacco Use Types [...] Telephone Encounter - Fanny Pastrana RN - 10/21/2019 12:29 PM CDT Attempted to call pt. LVM inquiring if she got a refill of medications from her providers. If not, please call back and let me know medication names and dosages she was talking. Left direct nurse line to call back. * Telephone Encounter - Dannielle Covington MD - 10/05/2019 9:31 PM CDT pls provide one more refill. * Telephone Encounter - Fanny Pastrana RN - 10/05/2019 4:22 PM CDT Pt called and requested medication for nausea. KEL 11/10/18. Pt's PCP stopped pro viding refills of zofran and promethazine. See's Dr. Hodge, Hepatology. 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 Has multiple blood transfusion from Dr. Field, hematology/oncolog y at [facility] in [place], [place]. Last time blood transfusion was last Thursday. Routing to Dr. Covington/Dr. Erazo to advise. documented in this encounter Plan of Treatment Not on filedocumented as of this encounter Visit Diagnoses Not on filedocumented in this encounter
--- OUTSIDE RECORDS SUMMARY | 2019-10-26 08:51 | XMS REPORT | Encounter Summary ---
Author Author [facility] Organization [facility] Address Unknown Phone Unavailable Care Team Providers Care Warehouse Puller Name Role Phone Carla Wilson MD PCP Naima Field MD Unavailable Winnie Jorge MD Unavailable Emiliano Rodriguez PREVENTION SPECIALIST-SPECIAL EDUCATION PARA PROFESSIONAL 7 Felisa Sneed MD 3 Reason for Visit * Reason Comments Lab Results Encounter Details Care Team Description Date Type Department Tracie Stuart, repatcher Results 09/27/2019 Telephone The [facility] [address] [address] Social History Date Tobacco Use Types Packs/Day [...] states she would prefer to go to [facility] in [place], [place] as this is where she goes [...] 09/22 due to SOB. Patient had to shaun se multiple times during conversation due to [...]
--- OUTSIDE RECORDS SUMMARY | 2019-10-26 08:51 | XMS REPORT | Encounter Summary ---
Author Author [facility] Organization [facility] Address Unknown Phone Unavailable Care Team Providers Care Security Tester Name Role Phone Carla Wilson MD PCP Naima Field MD Unavailable Winnie Jorge MD Unavailable Emiliano Rodriguez CARPET WINDER-DIGITAL ART DIRECTOR 7 Felisa Sneed MD 3 Reason for Visit * Reason Comments Labs Only Encounter Details Care Team Description Date Type Department Rina Ruano MA Labs Only 09/27/2019 Documentation The [facility] 4000 [facility] [place] [address] Social History Date Tobacco Use Types Packs/Day [...] Specimen Blood - Blood Performing Organization Address [facility] Ph one Number [facility] [address] [phone] * BNP (B-TYPE NATRIURETIC PEPTI) (09/26/2019) B Type 376.1 (H) <100.0 [facility] Natriuretic Peptide BNP NT pro [facility] Specimen Blood - Blood Performing Organization Address [facility] Ph one Number MAIN LAB [address] [place] [address] * BASIC METABOLIC PANEL (09/26/2019) Pathologist [facility] Sodium 141 [facility] Potassium 4.6 [...] [facility] eGFR [facility] Bahamian Anion Gap 9 [facility] BUN/Creatinine 19 [facility] Ratio Specimen Blood - Blood Performing Organization Address City/[facility] Ph one Number [facility] [address] [place] [address] * MAGNESIUM (09/26/2019) Magnesium 2.6 (H) 1.6 - 2.4 [facility] Specimen Blood - Blood Narrative Performed At This result has an attachment that is n ot available. Performing Organization Address City/[facility] Ph one Number MAIN LAB [address] [place] [address] documented in this encounter Visit Diagnoses Diagnosis Chronic diastolic heart failure (HCC) Chronic diastolic heart failure PAF (paroxysmal atrial fibrillation) (H CC) Atrial fibrillation Heart disease Heart disease, unspecified documented in this encounter
[2019-10-26 08:52] LABS: BASOPHILS % (AUTO) 0 % (0-10); EOSINOPHILS % (AUTO) 0 % (0-10); HEMATOCRIT 31 % (35-52); HEMOGLOBIN 9.8 G/DL (11.5-16.0); LYMPHOCYTES # (AUTO) 0.7 X 10^3 (1.0-4.0); LYMPHOCYTES % (AUTO) 10 % (12-44); MEAN CORPUSCULAR HEMOGLOBIN 30 PG (25-34); MEAN CORPUSCULAR HGB CONC 32 G/DL (32-36); MEAN CORPUSCULAR VOLUME 94 FL (80-99); MEAN PLATELET VOLUME 10.9 FL (7.4-10.4); MONOCYTES # (AUTO) 0.5 X 10^3 (0.0-1.0); MONOCYTES % (AUTO) 7 % (0-12); NEUTROPHILS # (AUTO) 5.6 X 10^3 (1.8-7.8); NEUTROPHILS % (AUTO) 83 % (42-75); PLATELET COUNT 226 10^3/uL (130-400); RED CELL DISTRIBUTION WIDTH 13.2 % (10.0-14.5); WHITE BLOOD COUNT 6.7 10^3/uL (4.3-11.0)
--- OUTSIDE RECORDS SUMMARY | 2019-10-26 08:52 | XMS REPORT | Encounter Summary ---
Author Author [facility] Organization [facility] Address Unknown Phone Unavailable Care Team Providers Care Liquefaction And Regasification Helper Name Role Phone Carla Wilson MD PCP Naima Field MD Unavailable Winnie Jorge MD Unavailable Emiliano Rodriguez OIL LABORATORY ANALYST-SOCIETY REPORTER 7 Felisa Sneed MD 3 Encounter Details Care Team Description Date Type Department Oliverio Mcneil LPN 05/23/2019 Telephone The [facility] [address] [place] [address] Social History Date Tobacco Use Types Packs/Day [...] Alice Esposito RN - 06/01/2019 3:03 PM DELICATESSEN DEPARTMENT MANAGER Addended by: ALICE ESPOSITO on: 06/01/2019 03:03 PM Modules accepted: Orders CATESSEN DEPARTMENT MANAGER * Telephone Encounter - Alice Esposito RN - 06/01/2019 2:57 PM DELICATESSEN DEPARTMENT MANAGER Felisa Sneed MD [place], Cara, RN Nope. That is all. Please set a reminder to check in with her between and for weight/BP/symptoms and keep me posted. THANKS Previous Messages ----- Message ----- From: Alice Esposito RN Sent: 06/01/2019 1:57 PM DELICATESSEN DEPARTMENT MANAGER To: Felisa Sneed MD Here are Deborah's labs from Thursday. Continue to hold Toro and Bumex (if not eating and drinking). Any other med fanny nges? Called patient and spoke with her about medication changes. Pt verbalized unders tanding. Altamont removed from list, pt said she hadn't been feeling well today. Ag guy to plan with Bumex and will hold if she is unable to keep anything down. Pt will call us back if she has any additional concerns. CATESSEN DEPARTMENT MANAGER * Telephone Encounter - Alice Esposito RN - 06/01/2019 11:17 AM DELICATESSEN DEPARTMENT MANAGER Returned call to patient. She reports not [...] Will route to Dr. Sneed for review. CATESSEN DEPARTMENT MANAGER * Telephone Encounter - Oliverio Mcneil LPN - 06/01/2019 10:03 AM DELICATESSEN DEPARTMENT MANAGER Pt called on 05/31 after 1600 reporting feeling "loopy" and asks for call back, called pt to assess: Patient Status patient is an established patient with [facility]. Signs and Symptoms Light headedness No swelling SOA had improved Pt reports being forgetful Lots of vomiting yesterday and could not keep anything down Pt was in ED Thursday, was told she had pneumonia Medication Review bumex 2 mg Alt[place] 12.5 mg Pt states she will hold [...] 05/03 05/02 190 Records request sent to CATESSEN DEPARTMENT MANAGER * Addendum Note - Pat Combs RN - 05/24/2019 4:20 PM DELICATESSEN DEPARTMENT MANAGER Addended by: PAT COMBS on: 05/24/2019 04:20 PM Modules accepted: Orders CATESSEN DEPARTMENT MANAGER * Addendum Note - Pat Combs RN - 05/24/2019 3:40 PM DELICATESSEN DEPARTMENT MANAGER Addended by: PAT COMBS on: 05/24/2019 03:40 PM Modules accepted: Orders CATESSEN DEPARTMENT MANAGER * Telephone Encounter - Pat Combs RN - 05/24/2019 3:13 PM DELICATESSEN DEPARTMENT MANAGER Reviewed with Dr. Chong. Orders given for [...] She is getting labs drawn at the [facility] on Thursday and asks that the lab requisition be sent there. I asked at if she is not feeling better by Thursday to give us a call that morning. She r epeated the instructions back and verbalized understanding. [facility], . Spoke with Kaylyn and she gave me fax number [phone] to fax the requisition. CATESSEN DEPARTMENT MANAGER * Telephone Encounter - Oliverio Mcneil LPN - 05/23/2019 3:03 PM DELICATESSEN DEPARTMENT MANAGER Pt called asking about lab results, called to assess: Patient Status patient is an established patient with [facility]. Signs and Symptoms Abdominal swelling Leg swelling Some SOA the last 2 days Medication Review Taking bumex 1 mg daily for a month. Pt thinks this was done after an admission at [facility] Recent Salt Intake Pt drinking 32 oz daily Date Weight B/P Pulse 05/23 200 05/22 201.2 05/21 201.8 05/20 202.4 05/19 201.9 05/18 201 05/17 05/16 199.2 05/15 200.4 05/14 05/13 05/12 196.2 05/11 05/10 05/09 05/08 05/06 05/05 05/04 05/03 05/02 190 Records request sent to [facility] for lab results. CATESSEN DEPARTMENT MANAGER documented in this encounter Plan of Treatment [...] [facility] eGFR [facility] Lithuanian Anion Gap 12 5 - 14 [facility] Specimen Blood - Blood Narrative Performed At This result has an attachment that is n ot available. Performing Organization Address City/State/Zipcode Ph one Number [facility] [address] [place] [address] documented in this encounter Visit Diagnoses Diagnosis Chronic diastolic heart failure (HCC) Chronic diastolic heart failure documented in this encounter
--- OUTSIDE RECORDS SUMMARY | 2019-10-26 08:52 | XMS REPORT | Encounter Summary ---
Author Author [facility] Organization [facility] Address Unknown Phone Unavailable Care Team Providers Care Project Administrator Name Role Phone Carla Wilson MD PCP Naima Field MD Unavailable Winnie Jorge MD Unavailable Emiliano Rodriguez THROAT CUTTER-RASPBERRY CHECKER 7 Felisa Sneed MD 3 Reason for Visit * Reason Comments Labs Only Encounter Details Care Team Description Date Type Department Janell Matos Labs Only 06/01/2019 Documentation The [facility] 4000 [facility] [place] [address] Social History Date Tobacco Use Types Packs/Day [...] [facility] eGFR [facility] Uzbek Anion Gap 12 5 - 14 [facility] Specimen Blood - Blood Narrative Performed At This result has an attachment that is n ot available. Performing Organization Address City/State/Zipcode Ph one Number [facility] [address] [place] [address] documented in this encounter Visit Diagnoses Diagnosis Chronic diastolic heart failure (HCC) Chronic diastolic heart failure documented in this encounter
--- OUTSIDE RECORDS SUMMARY | 2019-10-26 08:52 | XMS REPORT | Encounter Summary ---
Author Author [facility] Organization [facility] Address Unknown Phone Unavailable Care Team Providers Care [facility] Pricing Consultant Name Role Phone Carla Wilson MD PCP Naima Field MD Unavailable Winnie Jorge MD Unavailable Emiliano Rodriguez AIR GUN OPERATOR-RESIDENTIAL CONCIERGE 7 Felisa Sneed MD 3 Reason for Visit * Reason Comments Medication Refill Encounter Details Care Team Description Date Type Department Felisa Sneed MD 4000 [facility] [address] [place], [place] [id number] Medication Refill 05/01/2019 Refill The [facility] 4000 [facility] [address] [place] [address] Social History Date Tobacco Use Types Packs/Day [...]
--- OUTSIDE RECORDS SUMMARY | 2019-10-26 08:52 | XMS REPORT | Encounter Summary ---
Author Author [facility] Organization [facility] Address Unknown Phone Unavailable Care Team Providers Care Bow Rehairer Name Role Phone Carla Wilson MD PCP Naima Field MD Unavailable Winnie Jorge MD Unavailable Emiliano Rodriguez SPECIAL PROCEDURE TECHNOLOGIST-FRANCHISE BUSINESS CONSULTANT 7 Felisa Sneed MD 3 Reason for Referral * Consult, Test & Treat (Routine) Referred By Contact Referred To Contact Status Reason Specialty Diagnoses / Procedures Felisa Sneed MD [address] [place] [address] New Request Diagnoses Heart disease P rocedures REQUEST FOR CARDIOLOGY APPOINTMENT Reason for Visit * Reason Comments Cardiac Eval 3 month recheck * Consult, Test & Treat (Routine) Referred By Contact Referred To Contact Status Reason Specialty Diagnoses / Procedures Felisa Sneed MD [address] [place] [address] New Request Procedures REQUEST FOR CARDIOLOGY APPOINTMENT Encounter Details Care Team Description Date Type Department Felisa Sneed MD [address] [place] [address] [phone] Cardiac Eval (3 month recheck) 07/05/2019 Office Visit The [facility] [address] [address] Social History Date Tobacco Use Types Packs/Day [...] Comments Vital Sign 112/40 07/05/2019 8:40 AM SENIOR MARKETING ASSOCIATE Blood Pressure 77 07/05/2019 8:40 AM SENIOR MARKETING ASSOCIATE Pulse 36.4 C (97.5 F) 07/05/2019 8:40 AM SENIOR MARKETING ASSOCIATE Temperature - - Respiratory Rate 100% 07/05/2019 8:40 AM SENIOR MARKETING ASSOCIATE Oxygen Saturation - - Inhaled Oxygen Concentration 93.6 kg (206 lb 6.4 oz) 07/05/2019 8:40 AM SENIOR MARKETING ASSOCIATE Weight 162.6 cm (5' 4") 07/05/2019 8:40 AM SENIOR MARKETING ASSOCIATE Height 35.43 07/05/2019 8:40 AM SENIOR MARKETING ASSOCIATE Body Mass Index documented in this encounter [...] Instructions* Janell Matos - 07/05/2019 9:00 AM SENIOR MARKETING ASSOCIATE Will see Roland today. Med changes today: increase bumex to 2mg twice a day. Metolazone 5mg daily Mondays and , 1 hour before morning bumex, with in structions to only take if weight is above 195 pounds. Please log you blood pressure, heart rate, and daily weight in the ByRead walker. Labs standing monthly with routine CBC: [...] does not resolve with rest or nitroglycerin [place], foamy mucus with cough and shortness of breath A continuous rapid or irregular heartbeat Passing out or fainting Stroke symptoms such as sudden numbness or weakness on one side of your face, arm, or leg or sudden confusion, trouble speaking or vision changes Heart Failure OR MARKETING ASSOCIATE documented in this encounter Progress Notes * Felisa Sneed MD - 07/05/2019 9:00 AM SENIOR MARKETING ASSOCIATE Date of Service: 07/05/2019 Deborah Fields is a 64 y.o. female. CRYS Cabrera returns for follow-up in the advanced heart failure clinic in [place]. As you recall, she is now 64 [...] (HCC ) 03/31/2018 Chronic diastolic heart failure ([facility]) 03/31/2018 Long's esophagus 03/30/2018 Left leg cellulitis 03/29/2018 Pleural effusion on left 03/26/2018 Essential hypertension 02/23/2018 DELROY (acute kidney injury) ([facility]) 02/18/2018 CAD (coronary artery disease), [place] coronary artery 02/16/2018 02/16/18: CABG x4 (PRIDE [...] present on pulmonary function testing 02/16/2018 Thrombocytopenia ([facility]) 02/16/2018 Junctional rhythm 02/16/2018 Type 2 diabetes mellitus with circulatory disorder, without long-term curren t use of insulin ([facility]) 02/12/2018 PAF (paroxysmal atrial fibrillation) ([facility]) 02/12/2018 02/16/18: Bilateral modified CryoMaze procedure (pulmonary vein isolation) & Suture ligation of left atrial appendage at time of CABG. 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 HENT: Negative. [...] disease Essential hypertension Coronary artery disease involving [place] coronary artery of [place] heart wit hout angina pectoris Assessment and [...] and is following with Dr. Sosa in [place] [facility], and his ejection [...] Advanced Heart Failure and Transplant Cardiology Pager [phone] I spent 25 minutes with the patient [...] tablet Take 1 mg by mouth daily. jxtxrwdf-imuslhtqw-O-manganese 500-400-2-0.33 mg cap Take 500 mg by [...] 6 hours as nee ded for Pain. OR MARKETING ASSOCIATE documented in this encounter Plan of Treatment [...] is n ot available. Performing Organization Address City/[facility] Ph one Number MAIN LAB [address] [place] [address] * BASIC METABOLIC PANEL (09/26/2019) Sodium 141 [...] [facility] eGFR [facility] Croatian Anion Gap 9 [facility] BUN/Creatinine 19 [facility] Ratio Specimen Blood - Blood Performing Organization Address City/[facility] Ph [facility] Number MAIN LAB [address] [place] [address] * BNP (B-TYPE NATRIURETIC PEPTI) (09/26/2019) B Type 376.1 (H) <100.0 [facility] Natriuretic Peptide BNP NT pro [facility] Specimen Blood - Blood Performing Organization Address [facility] Ph one Number [facility] MAIN [facility] [address] [place] [address] * CBC (09/26/2019) Pathologist [facility] White Blood 3.8 (L) 4.3 - 11.0 [...] Blood Performing Organization Address [facility] Ph one Number [facility]IN [facility] [address] [place] [address] documented in this encounter Visit Diagnoses Diagnosis Chronic diastolic heart failure (HCC) Chronic diastolic heart failure PAF (paroxysmal atrial fibrillation) (H CC) Atrial fibrillation Heart disease Heart disease, unspecified Essential hypertension Unspecified essential hypertension Coronary artery disease involving nativ e coronary artery of [place] heart without angina pectoris documented in this encounter
--- OUTSIDE RECORDS SUMMARY | 2019-10-26 08:52 | XMS REPORT | Encounter Summary ---
Author Author [facility] Organization [facility] Address Unknown Phone Unavailable Care Team Providers Care Human Resources Office Assistant Name Role Phone Carla Wilson MD PCP Naima Field MD Unavailable Winnie Jorge MD Unavailable Emiliano Rodriguez EDUCATIONAL DIAGNOSTICIAN-MOTOR SCOOTER MECHANIC 7 Felisa Sneed MD 3 Reason for Visit * Reason Comments Labs Only Encounter Details Care Team Description Date Type Department Janell Matos Labs Only 05/25/2019 Documentation [facility] 4000 [facility] [place] [address] Social History Date Tobacco Use Types Packs/Day [...]
--- OUTSIDE RECORDS SUMMARY | 2019-10-26 08:52 | XMS REPORT | Encounter Summary ---
Author Author [facility] Organization [facility] Address Unknown Phone Unavailable Care Team Providers Care Heavy Duty Press Operator Name Role Phone Carla Wilson MD PCP Naima Field MD Unavailable Winnie Jorge MD Unavailable Emiliano Rodriguez INSPECTOR [employer]OLF [employer]-SERVICES ENGINEER 7 Felisa Sneed MD 3 Reason for Visit * Reason Comments Medication Refill Encounter Details Care Team Description Date Type Department Felisa Sneed MD [address] [facility] [id number] [place], [place] [id number] Medication Refill 05/14/2019 Refill [facility] [address] [facility] [id number] [place] [address] Social History Date Tobacco Use Types Packs/Day [...]
--- NOTE | 2019-10-26 08:57 | ED General ---
General Chief Complaint: Unresponsive Stated Complaint: UNRESPONSIVE Nursing Triage Note: ARRIVED VIA EMS FROM HOME. FOUND SITTING BESIDE THE BED UNRESPONSIVE. UNKNOWN HOW LONG SHE HAD BEEN THERE. EMS REPORTS BLOOD SUGAR BEING HIGH. PT WILL OPEN EYES AND IS RESPONSIVE TO PAIN. Nursing Sepsis Screen: No Definite Risk Source of Information: Patient, EMS Exam Limitations: Physical Impairments History of Present Illness Date Seen by Provider: October 26, 2019 Time Seen by Provider: 08:34 Initial Comments Here by EMS with report of being found unresponsive at home this morning. She was found sitting beside the bed unresponsive. Last known well time was at least last night. 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 She has had multiple transfusions up to weekly recently. EMS noted that her blood pressure was normal to high and O2 saturations were normal. Blood sugar was unreadable high. No fever in the field. No report of recent contacts. Last transfusion was about a week ago. She follows with [facility] and Dr. Grace. Otherwise unable to obtain information due to patient continuing to be unresponsive. She does occasionally open her eyes but does not answer questions or follow commands. Timing/Duration: Constant, Other (onset unknown but at least last night which would be approximately 12 hours ago) Severity: Severe Associated Systoms: No Fever/Chills, No Shortness of Air Allergies and Home Medications Allergies Coded Allergies: Cethdhz-Sph-Kwp Reductase Inhibitor (Verified Allergy, Intermediate, GI UPSET, N/V, 11/06/17) cefadroxil (Unverified Allergy, Mild, 01/01/17) Sulfa (Sulfonamide Antibiotics) (Verified Allergy, Unknown, 06/18/18) Home Medications Acetaminophen 500 Mg Tablet, 500 MG PO Q4H PRN for PAIN-MILD (1-4), (Reported) Bumetanide 1 Mg Tablet, 1 MG PO DAILY, (Reported) Bumetanide 1 Mg Tablet, 1 MG PO DAILY PRN for SWELLING, (Reported) MAY TAKE AN ADDITIONAL DOSE IF NEEDED Cetirizine HCl 10 Mg Tablet, 10 MG PO DAILY, (Reported) Folic Acid 1 Mg Tablet, 1 MG PO DAILY, (Reported) LAST FILLED 09-11-2019 #30 Glucosa Horne 2Kcl/Chondroitin Horne 1 Each Capsule, 1 CAP PO BID, (Reported) Insulin Aspart 300 Units/3 Ml Solution, 8 UNITS SQ AC, (Reported) Insulin NPH Human Isophane 100 Unit/1 Ml Vial, SQ AC, (Reported) LAST FILLED 09-05-2019 #10 VIALS SLIDING SCALE A Levothyroxine Sodium 125 Mcg Tablet, 125 MCG PO DAILY, (Reported) LAST FILLED 09-06-2019 #30 Magnesium Oxide 400 Mg Tablet, 400 MG PO BID, (Reported) Metoclopramide HCl 10 Mg Tablet, 10 MG PO BIDAC PRN for STOMACH UPSET, (Reported) Metolazone 5 Mg Tablet, 5 MG PO SUN,CARLENE PRN for WEIGHT>195, (Reported) Nitroglycerin 0.4 Mg Tab.subl, 0.4 MG SL UD PRN for CHEST PAIN, (Reported) Omeprazole 40 Mg Capsule.dr, 40 MG PO BID, (Reported) Promethazine HCl 25 Mg Tablet, 12.5 MG PO Q12H PRN for NAUSEA/VOMITING-2ND LINE, (Reported) Tizanidine HCl 2 Mg Tablet, 2 MG PO TID PRN for MUSCLE SPASMS, (Reported) Tramadol HCl 50 Mg Tablet, 50 MG PO TID PRN for PAIN-MODERATE, (Reported) Patient Home Medication List Home Medication List Reviewed: Yes Review of Systems Review of Systems Constitutional: see HPI Unable to complete review of systems due to altered mental status. Past Nvmeceh-Ukcuvk-Jyimoi Hx Past Med/Social Hx: Reviewed Nursing Past Med/Soc Hx Patient Social History Alcohol Use: Denies Use Recreational Drug Use: No Smoking Status: Former Smoker Type Used: Cigarettes Former Smoker, Quit: May 20, 1980 2nd Hand Smoke Exposure: No Recent Foreign Travel: No Contact w/Someone Who Travel: No Recent Infectious Disease Expo: No Recent Hopitalizations: Yes Immunizations Up To Date Tetanus Booster (TDap): Unknown PED Vaccines UTD: Yes Date of Pneumonia Vaccine: May 16, 2019 Date of Influenza Vaccine: Apr 15, 2019 Seasonal Allergies Seasonal Allergies: Yes Past Medical History Surgeries: Yes (SEE BELOW) Adenoidectomy, Cardiac, CABG, Coronary Stent, Open Heart Surgery, Orthopedic, Tonsillectomy, Tubal Ligation Respiratory: Yes (LEFT PLEURAL EFFUSION-S/P THORACENTESIS) Sleep Apnea Currently Using CPAP: No Currently Using BIPAP: No Cardiac: Yes (CHF, STENT X1; CABG 02/16/2018 x 4 @ [facility];NSTEMI X 3) Atrial Fibrillation, Chronic Edema/Swelling, Coronary Artery Disease, Heart Attack, High Cholesterol, Hypertension Neurological: Yes (CHRONIC BASELINE CONFUSION) Dementia Reproductive Disorders: No Female Reproductive Disorders: Denies GAS TECHNICIAN History: Menopausal Sexually Transmitted Disease: No HIV/AIDS: No Genitourinary: Yes Renal Failure Gastrointestinal: Yes (GAVE-GASTRIC ANTRAL VASCULAR ECTASIA;GASTRITIS;CHR. LIVER DZ/ELEV AMMONIA) Gastroesophageal Reflux, Liver Disease/Jaundice, Gastrointestinal Bleed, Diverticulosis, Hemorrhoids, Polyps Musculoskeletal: Yes (POOR AMBULATION--USES WALKER SINCE CABG; L ANKLE AND KNEE SURGERIES) Degenerate Disk Disease, Arthritis, Chronic Back Pain, Fractures Endocrine: Yes (OBESITY) Diabetes, Insulin dep, Hypothyroidsim HEENT: No Loss of Vision: Denies Hearing Impairment: Denies Cancer: No Psychosocial: Yes Anxiety Integumentary: Yes Psoriasis Blood Disorders: Yes (CHRONIC ANEMIA-GI LOSS/GAVE SYNDROME; MULT TRANSFUSIONS/MULT ANTIBODIES) Adverse Reaction/Blood Tranf: Yes (Antibody JKA) Family Medical History Reviewed Nursing Family Hx Arthritis G8 BROTHER Completed stroke 19 MOTHER FH: anemia 19 MOTHER FH: lupus G8 SISTER FH: throat cancer 19 FATHER Hypertension G8 SISTER Myocardial infarction 19 MOTHER Thyroid disease 19 MOTHER G8 SISTER Hypertension, Stroke, Other Conditions/Hx Physical Exam-Suspected Sepsis Physical Exam Vital Signs Vital Signs - First Documented 10/26/19 10/28/19 08:36 04:00 Temp 36.1 Pulse 76 Resp 16 B/P (MAP) 156/52 (86) Pulse Ox 93 O2 Delivery Room Air O2 Flow Rate 2.00 Capillary Refill : Less Than 3 Seconds Blood Pressure Mean: 86 Height, Weight, BMI Height: 5'4.00" Weight: 196lbs. 5.0oz. 89.516298un; 28.00 BMI Method:Stated General Appearance: Chronically ill, Mild Distress HEENT: PERRL/EOMI, Pharynx Normal Neck: Non Tender, Supple Respiratory: Lungs Clear, Crackles (bilateral bases) Cardiovascular: Regular Rate, Rhythm, No Murmur Gastrointestinal: Non Tender, Soft Back: No CVA Tenderness; No Muscle Spasm Extremity: Non Tender, No Pedal Edema Neurologic/Psychiatric: Other (unresponsive. Withdraws to pain. Occasionally opens eyes) Skin: normal color, warm/dry Focused Exam Lactate Level 10/26/19 08:40: Lactic Acid Level 2.18*H 10/26/19 10:55: Lactic Acid Level 3.63*H 10/26/19 12:50: Lactic Acid Level 2.30*H Lactic Acid Level Procedures/Interventions Date of ETT Placement: May 30, 2018 Time of ETT Placement: 1330 Progress/Results/Core Measures Suspected Sepsis Recent Fever Within 48 Hours: No Infection Criteria Present: Suspected New Infection New/Unexplained Altered Menta: Yes Sepsis Screen: No Definite Risk SIRS Temperature: Pulse: 76 Respiratory Rate: 16 Laboratory Tests 10/27/19 13:00: White Blood Count 6.7 10/28/19 06:05: White Blood Count 4.4 10/29/19 06:18: White Blood Count 3.6L Blood Pressure 156 /52 Mean: 86 10/26/19 08:40: Lactic Acid Level 2.18*H 10/26/19 10:55: Lactic Acid Level 3.63*H 10/26/19 12:50: Lactic Acid Level 2.30*H Laboratory Tests 10/26/19 08:40: INR Comment 1.0 10/27/19 13:00: Creatinine 2.65H, Platelet Count 176, Total Bilirubin 0.8 10/28/19 06:05: Creatinine 2.36H, Platelet Count 143, Total Bilirubin 0.9 10/29/19 06:18: Platelet Count 114L Results/Orders Lab Results Laboratory Tests Test 10/27/19 13:00 10/27/19 18:26 10/27/19 20:14 10/28/19 05:52 Range/Units White Blood Count 6.7 4.3-11.0 10^3/uL Red Blood Count 2.86 L 4.35-5.85 10^6/uL Hemoglobin 8.6 L 11.5-16.0 G/DL Hematocrit 27 L 35-52 % Mean Corpuscular Volume 94 80-99 FL Mean Corpuscular Hemoglobin 30 25-34 PG Mean Corpuscular Hemoglobin Concent 32 32-36 G/DL Red Cell Distribution Width 13.4 10.0-14.5 % Platelet Count 176 130-400 10^3/uL Mean Platelet Volume 10.1 7.4-10.4 FL Neutrophils (%) (Auto) 70 42-75 % Lymphocytes (%) (Auto) 15 12-44 % Monocytes (%) (Auto) 13 H 0-12 % Eosinophils (%) (Auto) 1 0-10 % Basophils (%) (Auto) 0 0-10 % Neutrophils # (Auto) 4.7 1.8-7.8 X 10^3 Lymphocytes # (Auto) 1.0 1.0-4.0 X 10^3 Monocytes # (Auto) 0.9 0.0-1.0 X 10^3 Eosinophils # (Auto) 0.1 0.0-0.3 10^3/uL Basophils # (Auto) 0.0 0.0-0.1 10^3/uL Sodium Level 137 135-145 MMOL/L Potassium Level 4.0 3.6-5.0 MMOL/L Chloride Level 96 L 98-107 MMOL/L Carbon Dioxide Level 31 21-32 MMOL/L Anion Gap 10 5-14 MMOL/L Blood Urea Nitrogen 50 H 7-18 MG/DL Creatinine 2.65 H 0.60-1.30 MG/DL Estimat Glomerular Filtration Rate 18 BUN/Creatinine Ratio 19 Glucose Level 366 H 70-105 MG/DL Calcium Level 9.3 8.5-10.1 MG/DL Corrected Calcium 9.6 8.5-10.1 MG/DL Total Bilirubin 0.8 0.1-1.0 MG/DL Aspartate Amino Transf (AST/SGOT) 18 5-34 U/L Alanine Aminotransferase (ALT/SGPT) 8 0-55 U/L Alkaline Phosphatase 66 40-136 U/L Total Protein 7.0 6.4-8.2 GM/DL Albumin 3.6 3.2-4.5 GM/DL Ammonia 78 H 11-32 UMOL/L Glucometer 346 H 288 H 70-110 MG/DL Test 10/28/19 06:05 10/28/19 10:58 10/28/19 16:04 10/28/19 19:30 Range/Units White Blood Count 4.4 4.3-11.0 10^3/uL Red Blood Count 2.62 L 4.35-5.85 10^6/uL Hemoglobin 8.0 L 11.5-16.0 G/DL Hematocrit 25 L 35-52 % Mean Corpuscular Volume 95 80-99 FL Mean Corpuscular Hemoglobin 31 25-34 PG Mean Corpuscular Hemoglobin Concent 32 32-36 G/DL Red Cell Distribution Width 13.1 10.0-14.5 % Platelet Count 143 130-400 10^3/uL Mean Platelet Volume 10.3 7.4-10.4 FL Neutrophils (%) (Auto) 51 42-75 % Lymphocytes (%) (Auto) 27 12-44 % Monocytes (%) (Auto) 17 H 0-12 % Eosinophils (%) (Auto) 4 0-10 % Basophils (%) (Auto) 1 0-10 % Neutrophils # (Auto) 2.2 1.8-7.8 X 10^3 Lymphocytes # (Auto) 1.2 1.0-4.0 X 10^3 Monocytes # (Auto) 0.7 0.0-1.0 X 10^3 Eosinophils # (Auto) 0.2 0.0-0.3 10^3/uL Basophils # (Auto) 0.0 0.0-0.1 10^3/uL Sodium Level 138 135-145 MMOL/L Potassium Level 3.5 L 3.6-5.0 MMOL/L Chloride Level 99 98-107 MMOL/L Carbon Dioxide Level 26 21-32 MMOL/L Anion Gap 13 5-14 MMOL/L Blood Urea Nitrogen 47 H 7-18 MG/DL Creatinine 2.36 H 0.60-1.30 MG/DL Estimat Glomerular Filtration Rate 21 BUN/Creatinine Ratio 20 Glucose Level 255 H 70-105 MG/DL Calcium Level 8.7 8.5-10.1 MG/DL Corrected Calcium 9.2 8.5-10.1 MG/DL Total Bilirubin 0.9 0.1-1.0 MG/DL Aspartate Amino Transf (AST/SGOT) 15 5-34 U/L Alanine Aminotransferase (ALT/SGPT) 7 0-55 U/L Alkaline Phosphatase 57 40-136 U/L Total Protein 6.7 6.4-8.2 GM/DL Albumin 3.4 3.2-4.5 GM/DL Glucometer 477 *H 397 H 309 H 70-110 MG/DL Test 10/29/19 06:18 Range/Units White Blood Count 3.6 L 4.3-11.0 10^3/uL Red Blood Count 2.32 L 4.35-5.85 10^6/uL Hemoglobin 7.0 L 11.5-16.0 G/DL Hematocrit 22 L 35-52 % Mean Corpuscular Volume 94 80-99 FL Mean Corpuscular Hemoglobin 30 25-34 PG Mean Corpuscular Hemoglobin Concent 32 32-36 G/DL Red Cell Distribution Width 12.7 10.0-14.5 % Platelet Count 114 L 130-400 10^3/uL Mean Platelet Volume 10.3 7.4-10.4 FL Neutrophils (%) (Auto) 55 42-75 % Lymphocytes (%) (Auto) 24 12-44 % Monocytes (%) (Auto) 13 H 0-12 % Eosinophils (%) (Auto) 8 0-10 % Basophils (%) (Auto) 0 0-10 % Neutrophils # (Auto) 2.0 1.8-7.8 X 10^3 Lymphocytes # (Auto) 0.9 L 1.0-4.0 X 10^3 Monocytes # (Auto) 0.5 0.0-1.0 X 10^3 Eosinophils # (Auto) 0.3 0.0-0.3 10^3/uL Basophils # (Auto) 0.0 0.0-0.1 10^3/uL My Orders Medications Given in ED Vital Signs/I&O 10/28/19 10/28/19 10/28/19 10/29/19 19:52 20:24 23:33 04:49 Temp 37.6 37.8 37.0 Pulse 107 90 82 Resp 17 20 20 B/P (MAP) 119/62 (81) 142/63 (89) 145/67 (93) Pulse Ox 91 95 96 O2 Delivery Nasal Cannula Room Air Nasal Cannula Nasal Cannula O2 Flow Rate 2.00 2.00 2.00 Capillary Refill : Less Than 3 Seconds Blood Pressure Mean: 86 Progress Note : Progress Note Seen and evaluated on arrival by EMS. IV access by EMS to Port-A-Cath. Sepsis protocol initiated. Additionally, we will add ABG, thyroid studies, magnesium level and initiate normal saline 500 mL bolus. Patient has chronic anemia. I have spoken with blood bank and she does have history of antibiotics. We do appear to have one unit held for her and that will be initiated. Type and cross for 2 units ordered with 1 to hold. She may be hemoconcentrated due to uncontrolled diabetes currently. She will require careful management between crystalloids and blood given her underlying disorders. We will place patient on Intal CO2. Monitor patient. LR 1 L bolus additionally ordered. 1015: I did discuss the case with Dr. Torres. LR is running currently. Patient has not changed with respect to mental status. Unsure of underlying etiology but stroke cannot be ruled out. Dysphagia screen is failed due to unresponsive state. Unable to accomplished NIH stroke scale due to unresponsiveness. Patient is not candidate for TPA due to unknown last well time and history of GI bleed and persistent chronic bleeding. Unresponsiveness may be due to profound dehydration given her hemoconcentration. We will recheck H&H after LR bolus complete and transfuse if hemoglobin less than 8. We have one unit of blood available. Second unit of blood is being cross matched given her history. Patient will need MRI which will be ordered. Patient to be admitted to the ICU and Dr. Torres has accepted her inpatient status. Unable to do antiplatelet therapy due to history of GI bleed and any anticoagulants would be dangerous to her. Patient has statin allergy and we are unable to initiate statin therapy with stroke order set due to statin allergy. DVT prophylaxis with stockings only due to history of GI bleed. I have updated the patient's daughter, Inocencia Matson at [phone]. Patient resuscitation status is full code. ECG Initial ECG Impression Date: October 26, 2019 Initial ECG Impression Time: 09:01 Initial ECG Rate: 76 Initial ECG Rhythm: Normal Sinus Comment Sinus rhythm with normal axis. No evidence of ST elevation RI. Similar to previous of 09/27/19. Interpreted by me. Diagnostic Imaging Diagonstic Imaging: CT Plain Films/CT/US/NM/MRI: head Comments [facility]. [place], [place] NAME: YOLETTE PISANO Jr [facility] REC#: [id number] PT STATUS: REG ER : 1955 PHYSICIAN: OBEY WHITE MD ADMIT DATE: 10/26/19/ER Draft Date of Exam:10/26/19 CT HEAD WO-R/O STROKE PROCEDURE: CT head wo r/o stroke. TECHNIQUE: Multiple contiguous axial images were obtained through the brain without the use of intravenous contrast. Auto Exposure Controls were utilized during the CT exam to meet ALARA standards for radiation dose reduction. INDICATION: Cerebrovascular accident and unresponsiveness Examination is limited by motion artifact. Ventricles and sulci are within normal limits for size. There is low-density in the deep white matter of both hemispheres. This is more pronounced on the left although purdy-white matter interface is preserved. No hemorrhage is identified. There is a faint lucency which appears to involve the anterior limb of the left internal capsule with possible similar finding in the right caudate head. Calvarium is intact and the visualized paranasal sinuses are clear. IMPRESSION: Limited study due to motion. There does appear to be mild low-density in the cerebral white matter possibly due to chronic microvascular ischemia which is asymmetric and greater on the left. Consideration could be given to follow-up MRI when patient able. Tiny lucencies in the region of the anterior limb of left internal capsule and right caudate head may represent lacunar infarcts of indeterminate age. No hemorrhage is identified. Dictated on workstation # [id number] Dict: 10/26/1927 Trans: 10/26/1934 [facility] [id number] Interpreted by: JEREMY SINGER MD Electronically signed by: Departure Communication (Admissions) Time/Spoke to Admitting Phy: 10:15 Impression Primary Impression: GAVE (gastric antral vascular ectasia) Additional Impressions: Chronic anemia Altered mental status Qualified Codes: R40.2431 - Devyn coma scale score 3-8, in the field [emt or ambulance] Hyperglycemia Dehydration Disposition: ADMITTED INPATIENT Condition: Critical Admissions Decision to Admit Reason: Admit from ER (General) Decision to Admit/Date: October 26, 2019 Time/Decision to Admit Time: 10:15 Departure-Patient Inst. Referrals: JAMES TORRES MD (PCP/Family) Primary Care Physician OBEY WHITE MD October 26, 2019 08:57
--- OUTSIDE RECORDS SUMMARY | 2019-10-26 09:00 | XMS REPORT | Continuity of Care Document ---
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 REPORTED 05-30-18 05. NRG RML Sensitivity Panel - 05/28/18 [...] NRG Manual blood basophils/100 leukocytes 1 % NR Blood macrocytes detection by light microscopy SLI T NR Blood toxic granules detection by light microscopy 1+ NR Blood dohle body detection by light microscopy [...] culture - 05/30/18 21:50 Bacterial urine culture [id number] NRG COLONY COUNT 40,000 CFU/ML NRG FTX;REPORTABLE [...] G Measurement of body temperature 98.8 NRG [id number] - 05/31/18 06:00 Cytologic examination of Papanicolaou smear by physici an SEE FOOTNOTE NRG Sputum Gram stain - [...] 10:05 NRG C FUNGUS SPUTUM FLUID TISSUE [id number] N RG Arterial blood gas measurement - [...] T Indirect antibody screen pa myron - 05/31/18 12:15 ABO+Rh group AP NR Transfusion band number [id number] NR Blood group antibody screen NEGATIVE NR [...] 99.4 NRG Whole blood hemoglobin and hematocrit pa myron - 05/31/18 16:58 Venous blood hemoglobin measurement [...] mg/dL 8.5-10.1 Whole blood hemoglobin and hematocrit [facility] - 06/21/18 10:52 Venous blood hemoglobin measurement (mass/volume) 8.3 g/dL 11.5-16.0 Blood hematocrit (volume fraction) 28 % 35-52 Serum or plasma lithium measurement (mol es/volume) - 06/21/18 10:52 BNP level 300.7 pg/mL <100.0 RED CELLS LEUKO REDUCED AS1 - 06/21/18 1 0:52 RED CELLS LEUKO REDUCED AS1 T RANSFUSED 06/22/18 4565 [facility] Blood type T Indirect antibody screen [facility] 06/21/18 10:52 ABO+Rh group AP NR Transfusion band number [id number] NRG Blood group antibody screen NEGATIVE NR [...] RED CELLS LEUKO REDUCED AS1 T RANSFUSED 06/24/181944 NRG Blood type T Indirect antibody screen pa myron - 06/24/18 14:10 ABO+Rh group AP NRG Transfusion band number [id number] NRG Blood group antibody screen NEGATIVE NR [...] 97 mmol/L 98-107 Carbon dioxide 23 mmol/L 21-32 [...] culture - 11/02/18 16:20 Bacterial blood culture [facility] Influenza virus A and B antigen detectio n - 11/02/18 16:43 FLU RESULT NEGATIVE FOR INFLUENZA A AND B ANTIGENS BY IA [facility] PT panel in platelet poor plasma by [...] culture - 11/02/18 17:38 Bacterial urine culture [id number] NRG COLONY COUNT >100,000/ML NRG FTX;REPORTABLE SUSCEPTIBILITY [...] ABO+Rh group AP NRG Transfusion band number [id number] NRG Blood group antibody screen NEGATIVE NR [...] mg/dL 70-110 Automated blood complete blood count ( mogram) panel - 12/01/18 13:28 Blood leukocytes [...] pa myron - 12/27/18 13:45 WRISTBAND NUMBER [id number] NRG ABO+Rh group AP NRG Blood group [...] culture - 12/27/18 17:10 Bacterial urine culture [id number] NRG COLONY COUNT >100,000/ML NRG FTX;REPORTABLE SUSCEPTIBILITY [...] 100 mmol/L 98-107 Carbon dioxide 24 mmol/L 21-32 [...] LEUKO REDUCED AS1 T RANSFUSED 04/11/19 1824 NRG Blood type T Indirect antibody screen pa myron - 04/11/19 16:40 WRISTBAND NUMBER [id number] NRG ABO+Rh group AP NRG Blood group [...] culture - 06/05/19 16:55 Bacterial urine culture [id number] NRG COLONY COUNT >100,000/ML NRG FTX;REPORTABLE (PROBABLE COAG NEGATIVE STAPH) NRG FREE TEXT ENTRY 2 (PRELIM RAPID ID TESTING AT [facility] 06/06) NRG FREE TEXT ENTRY 3 RML [...] 7-25 CREATININE 2.10 mg/dL 0.50-0.99 eGFR NON-AFR. CYMRAES 25 mL/min/1.73m2 > OR = 60 eGFR [...] pa myron - 06/27/19 14:55 WRISTBAND NUMBER [id number] NRG ABO+Rh group AP NRG Blood group [...] pa myron - 07/18/19 11:04 WRISTBAND NUMBER [id number] NRG ABO+Rh group AP NRG Blood group [...] 11-32 Serum or plasma thyroxine (T4) free jneny urement (mass/volume) - 07/25/19 15:17 Serum or [...] - 07/25/19 16:27 Bacterial blood culture NG NRG Serum or plasma lactate measurement (mol [...] LEUKO REDUCED AS1 T RANSFUSED 07/27/19 1731 NRG Blood type T Indirect antibody screen pa myron - 07/27/19 15:48 WRISTBAND NUMBER [id number] NRG ABO+Rh group AP NRG Blood group [...] NRG Blood type T Indirect antibody screen nc myron - 09/05/19 11:02 WRISTBAND NUMBER [id number] NRG ABO+Rh group AP NRG Blood group [...] NRG Blood type T Indirect antibody screen [facility] - 09/12/19 10:54 WRISTBAND NUMBER [id number] NRG ABO+Rh group AP [facility] Blood group antibody screen NEGATIVE NR G [id number] - 09/19/19 10:55 [id number] SPECIMEN AVAILABLE [facility] Whole blood basic metabolic panel - 09/13 [...] calculation of estimated glomerular filtration rate 22 [facility] Serum or plasma glucose measurement (mass/volume) 123 [...] d white blood cell (WBC) differential - 09/27/19 18:50 Blood leukocytes automated count (number/volume) 3.6 10*3/uL 4.3-11.0 Blood erythrocytes automated count (number/volume) 2.25 10*6/uL 4.35-5.85 Venous blood hemoglobin measurement (mass/volume) 7.0 g/dL 11.5-16.0 Blood hematocrit (volume fraction) 22 [...] 10.7 [foz_us] 7.4-10.4 Automated blood neutrophils/100 leukocytes 56 % 42-75 Automated blood lymphocytes/100 leukocytes 25 % 12-44 Blood monocytes/100 leukocytes 13 % 0-12 Automated blood eosinophils/100 leukocytes 6 % 0-10 Automated blood basophils/100 leukocytes 0 % 0-10 Blood neutrophils automated count (number/volume) 2.0 10*3 1.8-7.8 Blood lymphocytes automated count (number/volume) 0.9 10*3 1.0-4.0 Blood monocytes automated count (number/volume) 0. 5 10*3 0.0-1.0 Automated eosinophil count 0.2 10*3/uL 0 .0-0.3 Automated blood basophil count (count/volume) 0.0 10*3/uL 0.0-0.1 Serum or plasma thyroxine (T4) free jenny urement (mass/volume) - 09/27/19 18:50 Serum or plasma thyroxine (T4) free measurement (mass/ volume) 0.78 ng/dL 0.70-1.48 Comprehensive metabolic panel - 09/27/19 18:50 Serum or plasma sodium measurement (moles/volume) 142 mmol/L 135-145 Serum or plasma potassium measurement (moles/volume) 4.5 mmol/L 3.6-5.0 Serum or plasma chloride measurement (moles/volume) 108 mmol/L 98-107 Carbon dioxide 23 mmol/L 21-32 Serum or plasma anion gap determination (moles/volume) 11 mmol/L 5-14 Serum or plasma urea nitrogen measurement (mass/volume ) 45 mg/dL 7-18 Serum or plasma creatinine measurement (mass/volume) 2.35 mg/dL 0.60-1.30 Serum or plasma urea nitrogen/creatinine mass ratio 19 NRG Serum or plasma creatinine measurement w ith calculation of estimated glomerular filtration rate 21 NRG Serum or plasma glucose measurement (mass/volume) 160 mg/dL 70-105 Serum or plasma calcium measurement (mass/volume) 8.3 mg/dL 8.5-10.1 Serum or plasma total bilirubin measurement (mass/volu me) 0.3 mg/dL 0.1-1.0 Serum or plasma alkaline phosphatase momo surement (enzymatic activity/volume) 56 U/L 40-136 Serum or plasma aspartate aminotransfera se measurement (enzymatic activity/volume) 15 U/L 5-34 Serum or plasma alanine aminotransferase measurement (enzymatic activity/volume) 10 U/L 0-55 Serum or plasma protein measurement (mass/volume) 6.5 g/dL 6.4-8.2 Serum or plasma albumin measurement (mass/volume) 3.6 g/dL 3.2-4.5 CALCIUM CORRECTED 8.6 mg/dL 8.5-10.1 Magnesium - 09/27/19 18:50 Magnesium 2.4 mg/dL 1.6-2.4 Serum or plasma troponin i.cardiac measu rement (mass/volume) - 09/27/19 18:50 Serum or plasma troponin i.cardiac measurement (mass/v olume) < ng/mL <0.028 Myoglobin, serum - 09/27/19 18:50 Myoglobin, serum 52.3 ng/mL 10.0-92.0 Serum or plasma lithium measurement (mol es/volume) - 09/27/19 18:50 BNP PT 308.1 pg/mL <100.0 PT panel in platelet poor plasma by coag ulation assay - 09/27/19 18:50 Prothrombin time (PT) in platelet poor plasma by coagu lation assay 14.0 s 12.2-14.7 INR in platelet poor plasma or blood by coagulation as say 1.0 0.8-1.4 Activated partial thromboplastin time (a PTT) in platelet poor plasma bycoagulation assay - 09/27/19 18:50 Activated partial thromboplastin time (a PTT) in platelet poor plasma bycoagulation assay 29 s 24-35 Serum or plasma thyrotropin measurement by detection limit <=0.05 miu/l (units/volume) - 09/27/19 18:50 Serum or plasma thyrotropin measurement by detection limit <=0.05 miu/l (units/volume) 6.89 u[iU]/mL 0.35-4.94 RED CELLS LEUKO REDUCED AS1 - 09/27/19 1 8:50 RED CELLS LEUKO REDUCED AS1 T RANSFUSED 09/27/192024 NRG Blood type T Indirect antibody screen ze mancillal - 09/27/19 18:50 WRISTBAND NUMBER [id number] NRG ABO+Rh group AP NRG Blood group antibody screen NEGATIVE NR G Serum or plasma C reactive protein measu rement (mass/volume) - 09/27/19 18:50 Serum or plasma C reactive protein measurement (mass/v olume) 0.05 mg/dL 0.00-0.50 RED CELLS LEUKO REDUCED AS1 - 10/14/19 1 0:40 RED CELLS LEUKO REDUCED AS1 P RSMD TRFSD 10/14/19 1135 NRG Blood type T Indirect antibody screen ze mancillal - 10/14/19 10:40 WRISTBAND NUMBER [id number] NRG ABO+Rh group AP NRG Blood group antibody screen NEGATIVE NR G Complete blood count (CBC) with automate d white blood cell (WBC) differential - 10/15/19 11:15 Blood leukocytes automated count (number/volume) 5.0 10*3/uL 4.3-11.0 Blood erythrocytes automated count (number/volume) 2.79 10*6/uL 4.35-5.85 Venous blood hemoglobin measurement (mass/volume) 8.7 g/dL 11.5-16.0 Blood hematocrit (volume fraction) 26 % 35-52 Automated erythrocyte mean corpuscular volume 94 [ foz_us] 80-99 Automated erythrocyte mean corpuscular h emoglobin (mass per erythrocyte) 31 pg 25-34 Automated erythrocyte mean corpuscular h emoglobin concentration measurement (mass/volume) 33 g/dL 32-36 Automated erythrocyte distribution width ratio 13. 5 % 10.0- 14.5 Automated blood platelet count (count/volume) 186 10*3/uL 130-400 Automated blood platelet mean volume measurement 10.4 [foz_us] 7.4-10.4 Automated blood neutrophils/100 leukocytes 70 % 42-75 Automated blood lymphocytes/100 leukocytes 13 % 12-44 Blood monocytes/100 leukocytes 11 % 0-12 Automated blood eosinophils/100 leukocytes 6 % 0-10 Automated blood basophils/100 leukocytes 1 % 0-10 Blood neutrophils automated count (number/volume) 3.5 10*3 1.8-7.8 Blood lymphocytes automated count (number/volume) 0.6 10*3 1.0-4.0 Blood monocytes automated count (number/volume) 0. 6 10*3 0.0-1.0 Automated eosinophil count 0.3 10*3/uL 0 .0-0.3 Automated blood basophil count (count/volume) 0.0 10*3/uL 0.0-0.1 Blood lactic acid measurement (moles/vol ume) - 10/15/19 11:15 Blood lactic acid measurement (moles/volume) 1.70 mmol/L 0.50-2.00 Comprehensive metabolic panel - 10/15/19 11:15 Serum or plasma sodium measurement (moles/volume) 137 mmol/L 135-145 Serum or plasma potassium measurement (moles/volume) 4.1 mmol/L 3.6-5.0 Serum or plasma chloride measurement (moles/volume) 103 mmol/L 98-107 Carbon dioxide 21 mmol/L 21-32 Serum or plasma anion gap determination (moles/volume) 13 mmol/L 5-14 Serum or plasma urea nitrogen measurement (mass/volume ) 46 mg/dL 7-18 Serum or plasma creatinine measurement (mass/volume) 1.99 mg/dL 0.60-1.30 Serum or plasma urea nitrogen/creatinine mass ratio 23 NRG Serum or plasma creatinine measurement w ith calculation of estimated glomerular filtration rate 25 NRG Serum or plasma glucose measurement (mass/volume) 340 mg/dL 70-105 Serum or plasma calcium measurement [...] measurement (mass/volume) 3.6 g/dL 3.2-4.5 CALCIUM CORRECTED 9.3 mg/dL 8.5-10.1 Magnesium - 10/15/19 11:15 Magnesium 2.2 mg/dL 1.6-2.4 THYROID STIMULATING HORMONE - 10/15/19 1 1:15 THYROID STIMULATING HORMONE 6.69 u[iU]/mL 0.35-4.94 Serum or plasma thyroxine (T4) free jenny urement (mass/volume) - 10/15/19 11:15 Serum or plasma thyroxine (T4) free measurement (mass/ volume) 0.87 ng/dL 0.70-1.48 Serum or plasma lithium measurement (mol es/volume) - 10/15/19 11:15 BNP PT 226.7 pg/mL <100.0 Bacterial blood culture - 10/15/19 11:15 Bacterial blood culture NG NRG Bacterial blood culture - 10/15/19 11:59 Bacterial blood culture NG NRG Complete urinalysis with reflex to cultu re - 10/15/19 12:30 Urine color determination YELLOW NRG Urine clarity [...] leukocyte count by microscopy (number/high power field) NONE NRG Bacteria detection in urine sediment by light microsco py LARGE NRG Squamous epithelial cells detection in u rine sediment by light microscopy 0-2 NRG Crystals detection in urine sediment by light microsco py NONE NRG Casts detection in urine sediment by light microscopy NONE NRG Mucus detection in urine sediment by light microscopy NEGATIVE NRG Complete urinalysis with reflex to culture YES NRG Bacterial urine culture - 10/15/19 12:30 Bacterial urine culture [id number] NRG COLONY COUNT >100,000/ML NRG RAPID ID PREL RAPID ID TEST AT [facility] 10/15 9:25 NRG ID CONFIRMATION RML CONFIRMED ID 10/15 17:05 NRG Capillary blood glucose measurement by g lucometer (mass/volume) - 10/15/19 15:49 Capillary blood glucose measurement by glucometer (mas s/volume) 356 mg/dL 70-110 Capillary blood glucose measurement by g lucometer (mass/volume) - 10/15/19 20:58 Capillary blood glucose measurement by glucometer (mas s/volume) 311 mg/dL 70-110 RED CELLS LEUKO REDUCED AS1 - 10/21/19 0 9:50 RED CELLS LEUKO REDUCED AS1 P RSMD TRFSD 10/21/19 1052 NRG Blood type T Indirect antibody screen pa myron - 10/21/19 09:50 WRISTBAND NUMBER [id number] NRG ABO+Rh group AP NRG Blood group antibody screen NEGATIVE NR G Encounters ACCT No. Visit Date/Time Discharge Status Pt. Type Provider Facility Loc./Unit Complaint [id number] 08/02/2019 14:00:00 08/02/2019 23:59: 59 CLS Outpatient JAMES TORRES [facility] [id number] 06/20/2019 13:20:00 Document Registration [id number] 01/03/2019 15:20:00 Document Registration [id number] 03/01/2018 12:00:00 Document Registration [id number] 05/18/2017 16:00:00 Document Registration [id number] 10/21/2019 09:12:00 23:59:59 CLS Outpatient ANYSHIREEN V [facility] ONC [id number] 10/14/2019 10:19:00 00:01:00 DIS Outpatient SHIREEN AGARWAL V [facility] ONC [id number] 10/15/2019 13:20:00 21:40:00 DIS Inpatient GARCIA DO, MICHELLE [facility] 4TH GENERAL WEAKNESS,FAILUR E TO THRIVE [id number] 09/27/2019 18:10:00 23:11:00 DIS Emergency KATERYNA KHOURY, MAUREEN Rashid [facility] ER SOB, HX CHF [id number] 09/26/2019 13:05:00 23:59:59 CLS Outpatient KRUNAL KHOURY PHD, LULA Clement [facility] LAB [id number] 09/12/2019 09:32:00 23:59:59 CLS Outpatient NIA GABRIEL MD [facility] LAB [id number] 07/18/2019 10:26:00 00:01:00 DIS Outpatient KRUNAL KHOURY PHD, LULA Clement [facility] LAB [id number] 07/25/2019 19:00:00 13:33:00 DIS Inpatient GARCIA DO, MICHELLE [facility] 4TH CHEST PAIN,CONFUSION,EL EV AMMONIA,SEVERE SEPSIS,PN [id number] 07/18/2019 09:29:00 23:59:59 CLS Outpatient JAMES TORRES MD [facility] RAD SCREENING [id number] 07/11/2019 07:44:00 00:01:00 DIS Outpatient SHIREEN AGARWAL V [facility] ONC [id number] 06/05/2019 18:45:00 14:45:00 DIS Inpatient TOMASA CARMONA MD [facility] CSD PNA, UTI, SEPSIS [id number] 05/30/2019 14:04:00 23:59:59 CLS Outpatient RACHELE JEFFERSON 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 [facility] RAD [id number] 05/16/2019 13:41:00 23:59:59 CLS Outpatient MARY ANN CRUZ MAINTENANCE SHOP TECHNICIAN [facility] LAB [id number] 05/07/2019 16:12:00 19:07:00 DIS Emergency MALLORIE FATIMA MAINTENANCE SHOP TECHNICIAN [facility] ER CONFUSION, FREQUENT URI NATION [id number] 04/18/2019 14:38:00 00:01:00 DIS Outpatient KRUNAL KHOURY PHD, LULA Clement [facility] LAB [id number] 04/10/2019 16:30:00 11:40:00 DIS Inpatient JAMES TORRES MD [facility] 4TH N,V,DEHYDRATION,AFIB [id number] 04/04/2019 14:01:00 00:01:00 DIS Outpatient SHIREEN AGARWAL V [facility] ONC [id number] 01/10/2019 13:24:00 00:01:00 DIS Outpatient KRUNAL KHOURY PHD, LULA Clement [facility] LAB [id number] 01/05/2019 12:58:00 00:01:00 DIS Outpatient SHIREEN AGARWAL V [facility] ONC [id number] 12/27/2018 17:05:00 10:50:00 DIS Inpatient MICHELLE GARCIA DO, V [facility] ICU ANEMIA,HHNK [id number] 11/02/2018 20:55:00 13:05:00 DIS Inpatient GARCIAMICHELLE STAHL DO, V [facility] 4TH SEPSIS,UTI,MIDLY EVEVAT ED TROPONIN,CHEST PAIN [id number] 10/11/2018 14:32:00 23:59:59 CLS Outpatient KRUNAL KHOURY PHD, LULA Clement [facility] LAB [id number] 10/05/2018 12:42:00 15:58:00 DIS Outpatient SHIREEN AGARWAL [facility] ONC [id number] 09/27/2018 18:30:00 21:00:00 DIS Emergency KATERYNA KHOURY, MAUREEN Rashid [facility] ER SOA / SWELLING [id number] 09/22/2018 13:27:00 23:59:59 CLS Outpatient KRUNAL KHOURY PHD, LULA Clement [facility] LAB [id number] 09/17/2018 10:01:00 23:59:59 CLS Outpatient KRUNAL KHOURY PHD, LULA Clement [facility] LAB [id number] 08/30/2018 13:34:00 23:59:59 CLS Outpatient KRUNAL KHOURY PHD, LULA Clement [facility] LAB [id number] 08/17/2018 13:16:00 23:59:59 CLS Outpatient JAMES TORRES MD [facility] LAB [id number] 07/05/2018 19:14:00 23:59:59 CLS Outpatient JAMES TORRES MD [facility] LABNPT ANEMIA,CKD,DM,CIRRHOSIS [id number] 07/05/2018 08:00:00 01/21/2 019 23:59:59 CLS Outpatient SHIREEN AGARWAL V [facility] HH ANEMIA DM CKD CIRRHOSIS [id number] 06/18/2018 13:15:00 09:45:00 DIS Inpatient MICHELLE GARCIA DO, V [facility] IRF CRITICAL ILLNESS MYOPAT HY [id number] 05/20/2018 12:48:00 00:01:00 DIS Outpatient BRANDEN HAIDER MD, V [facility] ONC [id number] 05/30/2018 04:03:00 16:50:00 DIS Inpatient BRIAN KHOURY, JAMES Champion [facility] ICU FALL [id number] 05/28/2018 13:48:00 17:15:00 DIS Emergency TACOS KHOURY, MODESTO Barrett [facility] ER SOB [id number] 05/24/2018 13:02:00 15:25:00 DIS Inpatient KRISTINE KHOURY, TOMASA Narvaez [facility] 4TH ANEMIA,FEVER,NAUSEA,VOM ITING [id number] 05/05/2018 09:11:00 16:55:00 DIS Outpatient RACHELE JEFFERSON [facility] SDC POOR VENOUS ACC ESS I87.8 [id number] 04/29/2018 11:33:00 23:59:59 CLS Outpatient KELLY KHOURY, TUBA [facility] LAB [id number] 03/20/2018 12:20:00 23:59:59 CLS Outpatient MACIEL WELCH APRN [facility] RAD PAIN IN LEFT LE G [id number] 03/09/2018 13:19:00 018 00:01:00 DIS Outpatient BRANDEN HAIDER MD, V [facility] ONC [id number] 02/10/2018 13:30:00 14:53:00 DIS Outpatient SHIREEN AGARWAL [facility] ONC [id number] 02/12/2018 11:00:00 018 23:59:59 CLS Preadmit SABRINA ROSSI DO [facility] SDC POOR VENOUS ACCESS [id number] 02/11/2018 00:30:00 018 16:54:00 DIS Inpatient JAMES TORRES MD [facility] ICU CHEST PAIN,UNSTABLE ANG MAYANK;SEVERE ANEMIA;CHF [id number] 02/11/2018 06:53:00 018 23:59:59 CLS Outpatient SABRINA ROSSI DO [facility] PREOP POOR VENOUS ACCESS [id number] 01/12/2018 13:40:00 018 23:59:59 CLS Outpatient SHIREEN AGARWAL [facility] ONC [id number] 11/17/2017 14:55:00 018 23:59:59 CLS Outpatient KELLY KHOURY, TUBA [facility] LAB [id number] 11/06/2017 15:30:00 018 03:52:00 DIS Inpatient TOMASA CARMONA MD [facility] 4TH ANEMIA/TRANSFUSION [id number] 11/06/2017 12:00:00 018 23:59:59 CLS Outpatient KIERAN KHOURY, Wei BRANDON [facility] LAB [id number] 10/20/2017 11:12:00 018 00:01:00 DIS Outpatient SHIREEN AGARWAL [facility] ONC [id number] 10/03/2017 23:50:00 018 13:33:00 DIS Inpatient TOMASA CARMONA MD [facility] 4TH ANEMIA,CHEST PAIN, A FI B, HYPERGLYCEMIA, [id number] 09/12/2017 22:15:00 018 14:45:00 DIS Inpatient JAMES TORRES MD [facility] ICU CHEST PAIN [id number] 07/17/2017 14:09:00 02/13/2 018 10:19:00 DIS Outpatient BRANDEN HAIDER MD, V [facility] ONC [id number] 07/17/2017 09:59:00 018 13:30:00 DIS Outpatient CARMINE BORRERO DO [facility] ENDO GI BLEED [id number] 07/16/2017 15:00:00 15:00:00 CAN Preadmit CARMINE BORRERO DO V [facility] PREOP GI BLEED [id number] 07/01/2017 12:12:00 018 09:04:00 DIS Outpatient SHIREEN AGARWAL [facility] ONC [id number] 06/16/2017 10:05:00 018 00:01:00 DIS Outpatient SHIREEN AGARWAL [facility] ONC [id number] 06/14/2017 14:39:00 23:59:59 CLS Outpatient RACHELE JEFFERSON [facility] LAB ANEMIA,SHORTNES S OF BREATH [id number] 05/21/2017 12:23:00 23:59:59 CLS Outpatient SABRINA ROSSI DO [facility] RAD ABD PAIN, ANEMIA [id number] 05/12/2017 09:09:00 23:59:59 CLS Outpatient JAMES TORRES MD [facility] LAB [id number] 04/07/2017 06:54:00 23:59:59 CLS Outpatient SABRINA ROSSI DO [facility] ENDO INFLAMMATION [id number] 04/06/2017 11:00:00 11:22:00 DIS Outpatient SABRINA ROSSI DO [facility] PREOP CAPSULE ENDO [id number] 03/04/2017 10:21:00 00:01:00 DIS Outpatient SHIREEN AGARWAL [facility] ONC [id number] 03/02/2017 07:20:00 017 23:59:59 CLS Outpatient ROSSI SABRINA WOOD [facility] ENDO ANEMIA [id number] 02/23/2017 05:40:00 017 11:52:00 DIS Outpatient SABRINA ROSSI DO [facility] PREOP ANEMIA [id number] 01/29/2017 09:44:00 017 15:52:00 DIS Inpatient JAMES TORRES MD [facility] ICU A-FIB WITH RVR [id number] 01/02/2017 06:29:00 017 08:45:00 DIS Outpatient SABRINA ROSSI DO [facility] ENDO ANEMIA; OCCULT POSITIVE STOOLS [id number] 12/31/2016 11:10:00 017 10:01:00 DIS Outpatient MACIEL WELCH APRN [facility] LAB ANEMIA [id number] 12/31/2016 12:53:00 017 23:59:59 CLS Outpatient SABRINA ROSSI DO [facility] PREOP ANEMIA, OCCULT POSITIVE STOOL [id number] 12/17/2016 09:30:00 017 23:59:59 CLS Preadmit Wei ALCARAZ MD [facility] CARD AFIB,PSVT [id number] 10/10/2016 08:46:00 017 00:01:00 DIS Outpatient Wei ALCARAZ MD [facility] CARD AFIB,PSVT [id number] 10/24/2016 08:37:00 017 00:01:00 DIS Outpatient SHIREEN AGARWAL V [facility] ONC [id number] 10/24/2016 08:41:00 017 23:59:59 CLS Outpatient BERNY ALCARAZ MD [facility] LAB [id number] 09/15/2016 12:15:00 017 23:59:59 CLS Outpatient BERNY ALCARAZ MD Via [facility] LAB [id number] 11/27/2015 15:28:00 00:01:00 DIS Outpatient SHIREEN AGARWAL V [facility] ONC [id number] 10/04/2015 13:17:00 016 23:59:59 CLS Outpatient SHIREEN AGARWAL V [facility] ONC [id number] 06/12/2015 11:11:00 015 00:01:00 DIS Outpatient SHIREEN AGARWAL V [facility] ONC [id number] 06/04/2015 15:34:00 23:59:59 CLS Preadmit RACHELE JEFFERSON [facility] ONC [id number] 03/29/2015 11:35:00 23:59:59 CLS Outpatient WU DIOR MD [facility] LAB [id number] 03/15/2015 14:54:00 23:59:59 CLS Outpatient WU DIOR MD [facility] LAB [id number] 11/23/2014 13:42:00 015 00:01:00 DIS Outpatient SHIREEN AGARWAL V [facility] ONC [id number] 10/05/2014 13:42:00 015 23:59:59 CLS Outpatient CLAUDE GABRIEL MD [facility] LAB [id number] 10/05/2014 12:00:00 015 23:59:59 CLS Outpatient CLAUDE GABRIEL MD [facility] RAD POST SPOT URINE [id number] 07/17/2014 14:31:00 015 23:59:59 CLS Outpatient SHIREEN AGARWAL V [facility] ONC [id number] 05/24/2014 13:33:00 014 23:59:59 CLS Outpatient LINDA KHOURY FACC, ARNIE SHAW CC DS [facility] LAB [id number] 04/03/2014 14:00:00 014 00:01:00 DIS Outpatient ANYSHIREEN V ia [facility] ONC [id number] 03/24/2014 06:46:00 09:55:00 DIS Outpatient TONIE CRAWFORD MD [facility] SDC SCREENING; ANEMIA [id number] 03/23/2014 07:22:00 23:59:59 CLS Outpatient TONIE CRAWFORD MD [facility] PREOP SCREENING; ANEMIA [id number] 03/02/2014 09:01:00 16:00:00 DIS Outpatient LINDA KHOURY FACC, ARNIE SHAW CC DS [facility] CATH CP,CAD,HTN [id number] 02/07/2014 07:52:00 23:59:59 CLS Outpatient LINDA KHOURY FACC, ARNIE SHAW CC DS [facility] CARD AFIB [id number] 03/31/2013 08:55:00 013 23:59:59 CLS Outpatient CHICHI RIVAS [facility] RAD MID EPIGASTRIC PAIN [id number] 10/05/2014 11:59:00 Document Registration [id number] 10/05/2014 11:59:00 Document Registration [id number] 10/05/2014 11:59:00 Document Registration [id number] 08/24/2014 14:23:00 Document Registration [id number] 08/21/2014 07:51:00 Document Registration [id number] 04/03/2012 14:05:00 Document Registration
[2019-10-26 09:04] LABS: BILIRUBIN,URINE NEGATIVE (NEGATIVE); CLARITY,URINE CLEAR; COLOR,URINE YELLOW; GLUCOSE, URINE (UA) NEGATIVE (NEGATIVE); KETONES,URINE NEGATIVE (NEGATIVE); LEUKOCYTE ESTERASE ,URINE NEGATIVE (NEGATIVE); NITRITE,URINE NEGATIVE (NEGATIVE); PROTEIN,URINE NEGATIVE (NEGATIVE)
[2019-10-26 09:06] LABS: ALBUMIN 4.1 GM/DL (3.2-4.5); CHLORIDE 92 MMOL/L (98-107); POTASSIUM 4.5 MMOL/L (3.6-5.0); SODIUM 135 MMOL/L (135-145)
[2019-10-26 09:08] LABS: CALCIUM 9.9 MG/DL (8.5-10.1)
[2019-10-26 09:09] LABS: TOTAL PROTEIN 8.1 GM/DL (6.4-8.2)
[2019-10-26 09:10] LABS: CARBON DIOXIDE 29 MMOL/L (21-32)
[2019-10-26 09:11] LABS: BILIRUBIN,TOTAL 0.7 MG/DL (0.1-1.0)
[2019-10-26 09:11] LABS: ABG BASE EXCESS 7.9 MMOL/L (-2.5-2.5); ABG OXYGEN SATURATION 92 % (94-100); ABG PCO2 41 MMHG (35-45); ABG PH 7.49 (7.37-7.43); ABG PO2 61 MMHG (79-93); ABG TCO2 33.1 MMOL/L (21.0-31.0); ALLENS TEST POSITIVE
[2019-10-26 09:11] LABS: BACTERIA,URINE LARGE /HPF
[2019-10-26 09:12] LABS: ALKALINE PHOSPHATASE 68 U/L (40-136); PHOSPHORUS 4.1 MG/DL (2.3-4.7); PROTHROMBIN TIME PATIENT 13.5 SEC (12.2-14.7)
[2019-10-26 09:12] LABS: PATIENT TEMP 36.1; VENTILATOR NO
[2019-10-26 09:13] LABS: CREATININE SERUM 2.96 MG/DL (0.60-1.30); GFR ESTIMATED 16; GLUCOSE 471 MG/DL (70-105)
[2019-10-26 09:14] LABS: BUN/CREATININE RATIO 18
[2019-10-26 09:15] LABS: ALANINE AMINOTRANSFERASE 8 U/L (0-55)
[2019-10-26] MEDS ORDERED: LACTATED RINGERS 1,000 ML IV ONE (09:21)
--- NOTE | 2019-10-26 09:37 | Diagnostic Imaging Report ---
PROCEDURE: CT head wo r/o stroke. TECHNIQUE: Multiple contiguous axial images were obtained through the brain without the use of intravenous contrast. Auto Exposure Controls were utilized during the CT exam to meet ALARA standards for radiation dose reduction. INDICATION: Cerebrovascular accident and unresponsiveness Examination is limited by motion artifact. Ventricles and sulci are within normal limits for size. There is low-density in the deep white matter of both hemispheres. This is more pronounced on the left although purdy-white matter interface is preserved. No hemorrhage is identified. There is a faint lucency which appears to involve the anterior limb of the left internal capsule with possible similar finding in the right caudate head. Calvarium is intact and the visualized paranasal sinuses are clear. IMPRESSION: Limited study due to motion. There does appear to be mild low-density in the cerebral white matter possibly due to chronic microvascular ischemia which is asymmetric and greater on the left. Consideration could be given to follow-up MRI when patient able. Tiny lucencies in the region of the anterior limb of left internal capsule and right caudate head may represent lacunar infarcts of indeterminate age. No hemorrhage is identified. Dictated by: Dictated on workstation # [id number]
--- NOTE | 2019-10-26 09:50 | Diagnostic Imaging Report ---
INDICATION: Found unresponsive, and hyperglycemic COMPARISON: 10/15/2019 A right IJ catheter at the SVC is stable. Sternal wires midline. Some mild residual linear opacity in the left lung base likely partial atelectasis a component of improved but incompletely resolved pneumonia could not be excluded. The right lung is clear. The heart size is now felt to be within normal limits having decreased from the previous. Slight elevation of the left hemidiaphragm a chronic finding. IMPRESSION: Overall improvements from prior with decreased enlargement of the cardiac silhouette and improvements in left basilar and perihilar pulmonary opacity favoring atelectasis. No adverse development, pneumothorax or pleural fluid evident. Dictated by: Dictated on workstation # [id number]
[2019-10-26] MEDS ORDERED: inSUlin (REGULAR) HUMAN 1 UNIT/0.01 ML (CHARGE PER UNIT) IV STA (10:00)
--- NOTE | 2019-10-26 10:18 | NUR ---
ENVIRONMENTAL AID CONTACTED FOR BED. REPORTS TALKING TO PTS DAUGHTER ON THE PHONE.
--- OUTSIDE RECORDS SUMMARY | 2019-10-26 11:25 | XMS REPORT | Encounter Summary ---
Author Author [facility] Organization [facility] Address Unknown Phone Unavailable Care Team Providers Care Ski Patrol Name Role Phone Carla Wilson MD PCP Naima Field MD Unavailable Winnie Jorge MD Unavailable Emiliano Rodriguez HOSPITALIST PHYSICIAN-PROFESSOR OF BIOLOGY 7 Felisa Sneed MD 3 Reason for Visit * Reason Comments Nausea Encounter Details Care Team Description Date Type Department Antolin Erazo [address] [place] [address] Nausea 10/05/[address] [address] Social History Date Tobacco Use [...] one more refill. * Telephone Encounter - Fnany Pastrana RN - 10/05/2019 4:22 PM CDT Pt called and requested medication for nausea. KEL 11/10/18. Pt's PCP stopped pro viding refills of zofran and promethazine. See's Dr. Hodge, Hepatology. 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 Has multiple blood transfusion from Dr. Field, hematology/oncolog y at [facility] in [place], [place]. Last time blood transfusion was last Thursday. Routing to Dr. Covington/Dr. Erazo to advise. documented in this encounter Plan of Treatment Not on filedocumented as of this encounter Visit Diagnoses Not on filedocumented in this encounter
--- OUTSIDE RECORDS SUMMARY | 2019-10-26 11:25 | XMS REPORT | Encounter Summary ---
Author Author [facility] Organization [facility] Address Unknown Phone Unavailable Care Team Providers Care Drill Press Hand Name Role Phone Carla Wilson MD PCP Naima Field MD Unavailable Winnie Jorge MD Unavailable Emiliano Rodriguez MED CARE MANAGER-ORNAMENTAL PAINTER 7 Felisa Sneed MD 3 Encounter Details Care Team Description Date Type Department Rina Ruano MA 07/28/2019 Documentation The [facility] [id number] [place] [address] Social History Date Tobacco Use Types Packs/Day [...] * PROTIME INR (PT) (07/28/2019) Pathologist [facility] INR 1.1 0.8 - 1.4 OTHER OUTSIDE LAB Protime 14.2 OTHER OUTSIDE LAB Specimen Blood - Blood Performing Organization Address City/[facility] one Number OTHER OUTSIDE LAB * CBC AND DIFF (07/28/2019) Pathologist [facility] White Blood 3.4 (L) 4.3 - 11.0 [...] is n ot available. Performing Organization Address City/[facility] Ph one Number OTHER OUTSIDE LAB * COMPREHENSIVE METABOLIC PANEL (07/28/2019) Pathologist [facility] Sodium 138 OTHER OUTSIDE LAB Potassium 4.3 [...] LAB eGFR Non 29 OTHER OUTSIDE LAB [place] eGFR OTHER OUTSIDE [place] LAB Anion Gap 5 OTHER OUTSIDE LAB BUN/Creatinine 14 OTHER OUTSIDE Ratio LAB Specimen Blood - Blood Performing Organization Address City/State[facility] Ph one Number OTHER OUTSIDE LAB documented in this encounter Visit Diagnoses Not on filedocumented in this encounter
--- OUTSIDE RECORDS SUMMARY | 2019-10-26 11:25 | XMS REPORT | Encounter Summary ---
Author Author [facility] Organization [facility] Address Unknown Phone Unavailable Care Team Providers Care Automatic Wheel Line Operator Name Role Phone Carla Wilson MD PCP Naima Field MD Unavailable Winnie Jorge MD Unavailable mEiliano Rodriguez MOTION DESIGNER-COMPUTER SPECIALIST 7 Felisa Sneed MD 3 Reason for Visit * Reason Comments Labs Only Encounter Details Care Team Description Date Type Department Janell Matos Labs Only 05/25/2019 Documentation The [facility] [address] [facility] [place] [address] Social History Date Tobacco Use Types Packs/Day [...]
--- OUTSIDE RECORDS SUMMARY | 2019-10-26 11:25 | XMS REPORT | Encounter Summary ---
Author Author [facility] Organization [facility] Address Unknown Phone Unavailable Care Team Providers Care Entry Level Automotive Technician Name Role Phone Carla Wilson MD PCP Naima Field MD Unavailable Winnie Jorge MD Unavailable Emiliano Rodriguez PIN CHASER-WINDOWS APPLICATION PACKAGER 7 Felisa Sneed MD 3 Reason for Visit * Reason Comments Medication Refill Encounter Details Care Team Description Date Type Department Felisa Sneed MD [address] [facility] [id number] [place], [place] [id number] Medication Refill 05/14/2019 Refill The [facility] [address] [facility] [id number] [place] [address] Social History Date Tobacco Use Types Packs/Day [...]
--- OUTSIDE RECORDS SUMMARY | 2019-10-26 11:25 | XMS REPORT | Encounter Summary ---
Author Author [facility] Organization [facility] Address Unknown Phone Unavailable Care Team Providers Care Engineering Research Manager Name Role Phone Carla Wilson MD PCP Naima Field MD Unavailable Winnie Jorge MD Unavailable Emiliano Rodriguez ORACLE DISTRIBUTION CONSULTANT-VOCATIONAL COUNSELOR 7 Felisa Sneed MD 3 Encounter Details Care Team Description Date Type Department Oliverio Mcneil LPN 05/23/2019 Telephone The [facility] [id number] [place] [address] Social History Date Tobacco Use Types Packs/Day [...] Alice Esposito RN - 06/01/2019 3:03 PM TRACK MECHANIC Addended by: ALICE ESPOSITO on: 06/01/2019 03:03 PM Modules accepted: Orders K MECHANIC * Telephone Encounter - Alice Esposito RN - 06/01/2019 2:57 PM TRACK MECHANIC Felisa Sneed MD Montgomery, Cara, RN Nope. That is all. Please set a reminder to check in with her between and for weight/BP/symptoms and keep me posted. THANKS Previous Messages ----- Message ----- From: Alice Esposito RN Sent: 06/01/2019 1:57 PM TRACK MECHANIC To: Felisa Sneed MD Here are Deborah's labs from Thursday. Continue to hold Toro and Bumex (if not eating and drinking). Any other med fanny nges? Called patient and spoke with her about medication changes. Pt verbalized unders tanding. [place] removed from list, pt said she hadn't been feeling well today. Ag guy to plan with Bumex and will hold if she is unable to keep anything down. Pt will call us back if she has any additional concerns. K MECHANIC * Telephone Encounter - Alice Esposito RN - 06/01/2019 11:17 AM TRACK MECHANIC Returned call to patient. She reports not [...] Will route to Dr. Sneed for review. K MECHANIC * Telephone Encounter - Oliverio Mcneil LPN - 06/01/2019 10:03 AM TRACK MECHANIC Pt called on 05/31 after 1600 reporting feeling "loopy" and asks for call back, called pt to assess: Patient Status patient is an established patient with [facility]. Signs and Symptoms Light headedness No swelling SOA had improved Pt reports being forgetful Lots of vomiting yesterday and could not keep anything down Pt was in ED Thursday, was told she had pneumonia Medication Review bumex 2 mg [place] 12.5 mg Pt states she will hold [...] 05/03 05/02 190 Records request sent to K MECHANIC * Addendum Note - Pat Combs RN - 05/24/2019 4:20 PM TRACK MECHANIC Addended by: PAT COMBS on: 05/24/2019 04:20 PM Modules accepted: Orders K MECHANIC * Addendum Note - Pat Combs RN - 05/24/2019 3:40 PM TRACK MECHANIC Addended by: PAT COMBS on: 05/24/2019 03:40 PM Modules accepted: Orders K MECHANIC * Telephone Encounter - Pat Combs RN - 05/24/2019 3:13 PM TRACK MECHANIC Reviewed with Dr. Chong. Orders given for [...] She is getting labs drawn at the [facility] on Thursday and asks that the lab requisition be sent there. I asked at if she is not feeling better by Thursday to give us a call that morning. She r epeated the instructions back and verbalized understanding. Called the [facility], . Spoke with Kaylyn and she gave me fax number [phone] to fax the requisition. K MECHANIC * Telephone Encounter - Oliverio Mcneil LPN - 05/23/2019 3:03 PM TRACK MECHANIC Pt called asking about lab results, called to assess: Patient Status patient is an established patient with [facility]. Signs and Symptoms Abdominal swelling Leg swelling Some SOA the last 2 days Medication Review Taking bumex 1 mg daily for a month. Pt thinks this was done after an admission at [facility] Recent Salt Intake Pt drinking 32 oz daily Date Weight B/P Pulse 05/23 200 05/22 201.2 05/21 201.8 05/20 202.4 05/19 201.9 05/18 201 05/17 05/16 199.2 05/15 200.4 05/14 05/13 05/12 196.2 05/11 05/10 05/09 05/08 05/06 05/05 05/04 05/03 05/02 190 Records request sent to [facility] for lab results. K MECHANIC documented in this encounter Plan of Treatment [...] [facility] eGFR [facility] [place] Anion Gap 12 5 - 14 [facility] Specimen Blood - Blood Narrative Performed At This result has an attachment that is n ot available. Performing Organization Address City/State/Zipcode Ph one Number [facility] [address] [place] [address] documented in this encounter Visit Diagnoses Diagnosis Chronic diastolic heart failure (HCC) Chronic diastolic heart failure documented in this encounter
--- OUTSIDE RECORDS SUMMARY | 2019-10-26 11:25 | XMS REPORT | Encounter Summary ---
Author Author [facility] Organization [facility] Address Unknown Phone Unavailable Care Team Providers Care Director Of Managed Care Name Role Phone Carla Wilson MD PCP Naima Field MD Unavailable Winnie Jorge MD Unavailable Emiliano Rodriguez AEMT-WATER CHASER 7 Felisa Sneed MD 3 Reason for Visit * Reason Comments Labs Only Encounter Details Care Team Description Date Type Department Rina Ruano MA Labs Only 09/27/2019 Documentation The [facility] [address] [facility] [place] [address] Social History Date Tobacco Use Types Packs/Day [...] Specimen Blood - Blood Performing Organization Address [facility] Ph one Number [facility] [address] [place] [id number] * BNP (B-TYPE NATRIURETIC PEPTI) (09/26/2019) B Type 376.1 (H) <100.0 [facility] Natriuretic Peptide BNP NT pro [facility] Specimen Blood - Blood Performing Organization Address [facility] Ph one Number MAIN LAB [address] [place] [address] * BASIC METABOLIC PANEL (09/26/2019) Pathologist [facility] Sodium 141 [facility] Potassium 4.6 [...] [facility] eGFR [facility] [place] Anion Gap 9 [facility] BUN/Creatinine 19 [facility] Ratio Specimen Blood - Blood Performing Organization Address City/[facility] Ph one Number [facility] [address] [place] [address] * MAGNESIUM (09/26/2019) Magnesium 2.6 (H) 1.6 - 2.4 [facility] Specimen Blood - Blood Narrative Performed At This result has an attachment that is n ot available. Performing Organization Address City/[facility] Ph one Number MAIN LAB [address] [place] [address] documented in this encounter Visit Diagnoses Diagnosis Chronic diastolic heart failure (HCC) Chronic diastolic heart failure PAF (paroxysmal atrial fibrillation) (H CC) Atrial fibrillation Heart disease Heart disease, unspecified documented in this encounter
--- OUTSIDE RECORDS SUMMARY | 2019-10-26 11:25 | XMS REPORT | Clinical Summary ---
Author Author [facility] Organization [facility] Address Unknown Phone Unavailable Care Team Providers Care Plastics Engineering Teacher Name Role Phone Carla Wilson MD PCP Naima Field MD Unavailable Winnie Jorge MD Unavailable Emiliano Rodriguez APRN-LINE INSPECTOR 7 Felisa Sneed MD 3 Source Comments Some departments are not documenting in the electronic medical record. If you d o not see the information that you expected, contact Release of Information in [facility] Health Information Management department at [phone] for further assistan ce in locating additional records.[facility] Allergies Comments Active Allergy Reactions Severity [...] 6 hours as needed for Sleep. Active bairxdkn-jzmpdvetg-Z-doug Take 500 mg 0 anese 500-400-2-0.33 mg [...] kidney injury) 02/18/2018 CAD (coronary artery disease), [place] coronary artery 02/16/2018 Overview: 02/16/18: CABG x4 [...] Added automatically from request for carol soria [id number] Resolved Problems Problem Noted Date Resolved Date [...] Comments Vital Sign 112/40 07/05/2019 9:11 AM MANAGER MAIL Blood Pressure 77 07/05/2019 9:11 AM MANAGER MAIL Pulse 36.4 C (97.5 F) 07/05/2019 8:40 AM MANAGER MAIL Temperature 16 03/08/2019 2:34 PM CDT Respiratory Rate 100% 07/05/2019 8:40 AM MANAGER MAIL Oxygen Saturation - - Inhaled Oxygen Concentration 93.4 kg (206 lb) 07/05/2019 9:11 AM MANAGER MAIL Weight 162.6 cm (5' 4") 07/05/2019 9:11 AM MANAGER MAIL Height 35.36 07/05/2019 9:11 AM MANAGER MAIL Body Mass Index Plan of Treatment Health [...] Power injectable confirmed by card. THOMPSON SUTTON [id number] / [id number] / [id number] Plate Acutie Sternal Closure - N/A: Sternum ACT [id number] INNOVATION Implanted: Qty: 2 on 02/16/2018 by Lanec Conte MD at [facility] [id number] / [id number] / [id number] Plate Acutie Sternal Closure - N/A: Sternum ACT [id number] INNOVATION Implanted: Qty: 1 on 02/16/2018 by Lance Conte MD at [facility] Procedures Comments Procedure Name Priority Date/Time [...] 3 Months Results * CBC (09/26/2019) Pathologist [facility] White Blood 3.8 (L) 4.3 - 11.0 [...] Specimen Blood - Blood Performing Organization Address [facility] Ph one Number MAIN LAB [address] [place] [address] * BNP (B-TYPE NATRIURETIC PEPTI) (09/26/2019) Pathologist [facility] B Type 376.1 (H) <100.0 [facility] Natriuretic Peptide BNP NT pro [facility] Specimen Blood - Blood Performing Organization Address [facility] Ph one Number MAIN LAB [address] [place] [address] * MAGNESIUM (09/26/2019) Pathologist [facility] Magnesium 2.6 (H) 1.6 - 2.4 [facility]U MAIN [facility] Specimen Blood - Blood Narrative Performed At This result has an attachment that is n ot available. Performing Organization Address [facility] Ph one Number MAIN LAB [address] [place] [address] * BASIC METABOLIC PANEL (09/26/2019) Pathologist [facility] Sodium 141 KU MAIN LAB Potassium 4.6 [...] [facility]U MAIN LAB eGFR [facility] [place] Anion Gap 9 [facility] BUN/Creatinine 19 [facility] Ratio Specimen Blood - Blood Performing Organization Address City/State/[facility] Ph one Number [facility] [address] [place] [address] * PROTIME INR (PT) (07/28/2019) Pathologist [facility] INR 1.1 0.8 - 1.4 OTHER OUTSIDE LAB Protime 14.2 OTHER OUTSIDE LAB Specimen Blood - Blood Performing Organization Address City/[facility] one Number OTHER OUTSIDE LAB * CBC AND DIFF (07/28/2019) Pathologist [facility] White Blood 3.4 (L) 4.3 - 11.0 [...] is n ot available. Performing Organization Address City/[facility] Ph one Number OTHER OUTSIDE LAB * [...] LAB eGFR Non 29 OTHER OUTSIDE LAB Finnish eGFR OTHER OUTSIDE Finnish LAB Anion Gap 5 OTHER OUTSIDE LAB BUN/Creatinine 14 OTHER OUTSIDE Ratio LAB Specimen Blood - Blood Performing Organization Address City/State/Zipcode Ph one Number OTHER OUTSIDE LAB from Last 3 Months Insurance Type Payer Benefit Subscriber ID Effective Phone Address Plan / Dates Group Medicare MEDICARE MEDICARE xxxxxxxxxxx [id number] PART A AND resent B Advance Directives Patient Assembly Inspector Helper Explanation Type Date Recorded Advance 02/16/2018 9:31 [...]
--- OUTSIDE RECORDS SUMMARY | 2019-10-26 11:25 | XMS REPORT | Encounter Summary ---
Author Author [facility] Organization [facility] Address Unknown Phone Unavailable Care Team Providers Care Outbound Sales Advisor Name Role Phone Carla Wilson MD PCP Naiam Field MD Unavailable Winnie Jorge MD Unavailable Emiliano Rodriguez REFINERY OPERATOR POLYMERIZATION PLANT-MASTER MECHANIC 7 Felisa Sneed MD 3 Reason for Referral * Consult, Test & Treat (Routine) Referred By Contact Referred To Contact Status Reason Specialty Diagnoses / Procedures Felisa Sneed MD [address] [place] [address] New Request Diagnoses Heart disease P rocedures REQUEST FOR CARDIOLOGY APPOINTMENT Reason for Visit * Reason Comments Cardiac Eval 3 month recheck * Consult, Test & Treat (Routine) Referred By Contact Referred To Contact Status Reason Specialty Diagnoses / Procedures Felisa Sneed MD [address] [place] [address] New Request Procedures REQUEST FOR CARDIOLOGY APPOINTMENT Encounter Details Care Team Description Date Type Department Felisa Sneed MD [address] [place] [address] [phone] Cardiac Eval (3 month recheck) 07/05/2019 Office Visit [facility] [address] [address] Social History Date Tobacco Use Types Packs/Day [...] Comments Vital Sign 112/40 07/05/2019 8:40 AM ASSISTANT STATISTICIAN Blood Pressure 77 07/05/2019 8:40 AM ASSISTANT STATISTICIAN Pulse 36.4 C (97.5 F) 07/05/2019 8:40 AM ASSISTANT STATISTICIAN Temperature - - Respiratory Rate 100% 07/05/2019 8:40 AM ASSISTANT STATISTICIAN Oxygen Saturation - - Inhaled Oxygen Concentration 93.6 kg (206 lb 6.4 oz) 07/05/2019 8:40 AM ASSISTANT STATISTICIAN Weight 162.6 cm (5' 4") 07/05/2019 8:40 AM ASSISTANT STATISTICIAN Height 35.43 07/05/2019 8:40 AM ASSISTANT STATISTICIAN Body Mass Index documented in this encounter [...] Instructions* Janell Matos - 07/05/2019 9:00 AM ASSISTANT STATISTICIAN Will see Roland today. Med changes today: increase bumex to 2mg twice a day. Metolazone 5mg daily Mondays and , 1 hour before morning bumex, with in structions to only take if weight is above 195 pounds. Please log you blood pressure, heart rate, and daily weight in the [facility] walker. Labs standing monthly with routine CBC: [...] does not resolve with rest or nitroglycerin [place], foamy mucus with cough and shortness of breath A continuous rapid or irregular heartbeat Passing out or fainting Stroke symptoms such as sudden numbness or weakness on one side of your face, arm, or leg or sudden confusion, trouble speaking or vision changes Heart Failure STANT STATISTICIAN documented in this encounter Progress Notes * Felisa Sneed MD - 07/05/2019 9:00 AM ASSISTANT STATISTICIAN Date of Service: 07/05/2019 Deborah Fields is a 64 y.o. female. CRYS Cabrera returns for follow-up in the advanced heart failure clinic in [place]. As you recall, she is now 64 [...] (HCC ) 03/31/2018 Chronic diastolic heart failure ([facility]) 03/31/2018 Long's esophagus 03/30/2018 Left leg cellulitis 03/29/2018 Pleural effusion on left 03/26/2018 Essential hypertension 02/23/2018 DELROY (acute kidney injury) ([facility]) 02/18/2018 CAD (coronary artery disease), shoshone-paiute coronary artery 02/16/2018 02/16/18: CABG x4 (PRIDE [...] present on pulmonary function testing 02/16/2018 Thrombocytopenia ([facility]) 02/16/2018 Junctional rhythm 02/16/2018 Type 2 diabetes mellitus with circulatory disorder, 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 HENT: Negative. [...] disease Essential hypertension Coronary artery disease involving shoshone-paiute coronary artery of shoshone-paiute heart wit hout angina pectoris Assessment and [...] and is following with Dr. Sosa in [place] at [facility], and his ejection [...] Advanced Heart Failure and Transplant Cardiology Pager [phone] I spent 25 minutes with the patient [...] tablet Take 1 mg by mouth daily. xmtjqbve-axjmxovdl-D-manganese 500-400-2-0.33 mg cap Take 500 mg by [...] 6 hours as nee ded for Pain. STANT STATISTICIAN documented in this encounter Plan of Treatment [...] is n ot available. Performing Organization Address [place]/[facility] Ph one Number MAIN LAB [address] [place] [address] * BASIC METABOLIC PANEL (09/26/2019) Sodium 141 [...] [facility] eGFR [facility] Trinidadian Anion Gap 9 [facility] BUN/Creatinine 19 [facility] Ratio Specimen Blood - Blood Performing Organization Address [facility] [address] [place] [address] * BNP (B-TYPE NATRIURETIC PEPTI) (09/26/2019) B Type 376.1 (H) <100.0 [facility] Natriuretic Peptide BNP NT pro [facility] Specimen Blood - Blood Performing Organization Address [facility] Ph one Number [facility] [address] [place] [address] * CBC (09/26/2019) Pathologist [facility] [...] Specimen Blood - Blood Performing Organization Address [facility] Ph one Number [facility] [address] [place] [address] documented in this encounter Visit Diagnoses Diagnosis Chronic diastolic heart failure (HCC) Chronic diastolic heart failure PAF (paroxysmal atrial fibrillation) ([facility]) Atrial fibrillation Heart disease Heart disease, unspecified Essential hypertension Unspecified essential hypertension Coronary artery disease involving nativ e coronary artery of shoshone-paiute heart without angina pectoris documented in this encounter
--- OUTSIDE RECORDS SUMMARY | 2019-10-26 11:25 | XMS REPORT | Encounter Summary ---
Author Author [facility] Organization [facility] Address Unknown Phone Unavailable Care Team Providers Care Horse Rider Name Role Phone Carla Wilson MD PCP Naima Field MD Unavailable Winnie Jorge MD Unavailable Emiliano Rodriguez CHAIRMAN EMERITUS-CAFE AIDE 7 Felisa Sneed MD 3 Reason for Visit * Reason Comments Lab Results Encounter Details Care Team Description Date Type Department Tracie Stuart, visitor service assistant Results 09/27/2019 Telephone [facility] [address] [address] Social History Date Tobacco Use Types Packs/Day [...] would prefer to go to [facility] in [place], [place] as this is where she goes [...]
--- OUTSIDE RECORDS SUMMARY | 2019-10-26 11:25 | XMS REPORT | Encounter Summary ---
Author Author [facility] Organization [facility] Address Unknown Phone Unavailable Care Team Providers Care Oven Operator Automatic Name Role Phone Carla Wilson MD PCP Naima Field MD Unavailable Winnie Jorge MD Unavailable Emiliano Rodriguez TOPOGRAPHY TECHNICIAN-INSECT CONTROL AIDE 7 Felisa Sneed MD 3 Reason for Visit * Reason Comments Palliative Care * Consult, Test & Treat (Routine) Referred By Contact Referred To Contact Status Reason Specialty Diagnoses / Procedures Felisa Sneed MD 4000 [facility] [place] [address] Pending Review Procedures REQUEST FOR CARDIOLOGY APPOINTMENT Encounter Details Care Team Description Date Type Department Roland Hernández TOPOGRAPHY TECHNICIAN-INSECT CONTROL AIDE [id number] [place], [place] [id number] Palliative Care 07/05/2019 Office Visit [facility] [address] [address] Social History Date Tobacco Use Types Packs/Day [...] Comments Vital Sign 112/40 07/05/2019 9:11 AM PUBLIC HEALTH DIETITIAN Blood Pressure 77 07/05/2019 9:11 AM PUBLIC HEALTH DIETITIAN Pulse - - Temperature - - Respiratory Rate - - Oxygen Saturation - - Inhaled Oxygen Concentration 93.4 kg (206 lb) 07/05/2019 9:11 AM PUBLIC HEALTH DIETITIAN Weight 162.6 cm (5' 4") 07/05/2019 9:11 AM PUBLIC HEALTH DIETITIAN Height 35.36 07/05/2019 9:11 AM PUBLIC HEALTH DIETITIAN Body Mass Index documented in this encounter [...] this encounter Progress Notes * Roland Hernández, SAMANTHA-INSECT CONTROL AIDE - 07/05/2019 9:30 AM PUBLIC HEALTH DIETITIAN PALLIATIVE CARE OUTPATIENT VISIT Date of Service: [...] needs to PCP/specilsits unless HF becomes primary sales driver of decompensa tion in health status. Follow-up: PRN Thank you for the opportunity to participate in the care of this patient. Please call with any questions or concerns. Roland Hernández APRN, INSECT CONTROL AIDE-C Palliative Care--Outpatient Heart Failure Pager: Office: (Total time spent 45 minutes [id number] with patient & . Estimated counseling time [...] Bleeding disorder (HCC) CAD (coronary artery disease), false pass coronary artery 02/16/2018 Chronic diastolic heart failure (HCC) 03/31/2018 Coronary artery disease Diabetes mellitus (HCC) Type II Essential hypertension 02/23/2018 Hypertension Stomach disorder Vision decreased Surgical History: Surgical History: Procedure Laterality Date HX HEART CATHETERIZATION 2017 CORONARY STENT PLACEMENT 2016 CORONARY ARTERY BYPASS WITH ARTERIAL GRAFT - 4 GRAFTS (Internal Mammary Torie ry and Endovascular Vein [place]) N/A 02/16/2018 Performed by Lance Pal MD [...] tablet Take 1 mg by mouth daily. qxrqpghh-pmpidjnfx-C-manganese 500-400-2-0.33 mg cap Take 500 mg by [...] - Heart Failure: MD Roland Mackay APRN [address] [facility] Mail[address] [place] [address] [phone] Phone contact: [phone] IC HEALTH DIETITIAN documented in this encounter Miscellaneous Notes * Advanced Care Planning/Resuscitation Status - Roland Hernández APRN-NP - 07/05/2019 9:30 AM PUBLIC HEALTH DIETITIAN Advance Care Planning/Resuscitation Status Conversation Individuals present for advance care planning conversation: Patient, (), Edgar Palliative INSECT CONTROL AIDE Pertinent details of conversation (including direct quotes [...] sepa rate billable note). Roland Hernández APRN INSECT CONTROL AIDE-C Palliative Care--Outpatient Heart Failure Pager: Office: IC HEALTH DIETITIAN documented in this encounter Plan of Treatment [...]
--- OUTSIDE RECORDS SUMMARY | 2019-10-26 11:25 | XMS REPORT | Encounter Summary ---
Author Author [facility] Organization [facility] Address Unknown Phone Unavailable Care Team Providers Care Senior Marketing Associate Name Role Phone Carla Wilson MD PCP Naima Field MD Unavailable Winnie Jorge MD Unavailable Emiliano Rodriguez AUTOMATIC SHIRRING MACHINE OPERATOR-HOSPICE LIAISON 7 Felisa Sneed MD 3 Reason for Visit * Reason Comments Medication Refill Encounter Details Care Team Description Date Type Department Felisa Sneed MD 4000 [facility] [id number] [place], [place] [id number] Medication Refill 05/01/[address] [facility] 4000 [facility] [address] [place] [address] Social History Date Tobacco Use Types Packs/Day [...]
--- OUTSIDE RECORDS SUMMARY | 2019-10-26 11:25 | XMS REPORT | Encounter Summary ---
Author Author [facility] Organization [facility] Address Unknown Phone Unavailable Care Team Providers Care Training Technician Name Role Phone Carla Wilson MD PCP Naima Field MD Unavailable Winnie Jorge MD Unavailable Emiliano Rodriguez STEWARDING SUPERVISOR-FINAL CIGAR AND BOX EXAMINER 7 Felisa Sneed MD 3 Reason for Visit * Reason Comments Other Nurse, Please Call. Encounter Details Care Team Description Date Type Department Lynette Diana MD 4000 [facility] [address] [place] [address] Other (Nurse, Please Call.) 10/04/2019 Telephone [facility] [address] [address] Social History Date Tobacco Use [...] chronic nausea. Requested pat mic call her retail product advisor. * Telephone Encounter - Lauryn Crum - 10/04/2019 3:07 PM CDT Vm 3:04pm Please have Dr Diana's nurse call. [phone] documented in this encounter Plan of Treatment Not on filedocumented as of this encounter Visit Diagnoses Not on filedocumented in this encounter
--- OUTSIDE RECORDS SUMMARY | 2019-10-26 11:25 | XMS REPORT | Encounter Summary ---
Author Author [facility] Organization [facility] Address Unknown Phone Unavailable Care Team Providers Care Agent Licensing Clerk Name Role Phone Carla Wilson MD PCP Naima Field MD Unavailable Winnie Jorge MD Unavailable Emiliano Rodriguez RESEARCH INSTRUCTOR-PRODUCTION TROUBLESHOOTER 7 Felisa Sneed MD 3 Reason for Visit * Reason Comments Labs Only Encounter Details Care Team Description Date Type Department Janell Matos Labs Only 06/01/2019 Documentation [facility] 4000 [facility] [place] [address] Social History Date Tobacco Use Types Packs/Day [...] [facility] eGFR [facility] Nigerien Anion Gap 12 5 - 14 [facility] Specimen Blood - Blood Narrative Performed At This result has an attachment that is n ot available. Performing Organization Address City/State/Zipcode Ph one Number [facility] MAIN [facility] [address] [place] [address] documented in this encounter Visit Diagnoses Diagnosis Chronic diastolic heart failure (HCC) Chronic diastolic heart failure documented in this encounter
[2019-10-26 11:30] VITALS: BP 112/66
--- OUTSIDE RECORDS SUMMARY | 2019-10-26 11:44 | XMS REPORT | Continuity of Care Document ---
Author Organization Unknown Address Unknown Phone Unavailable Allergies Active Description Code Type Severity Reaction Onset Reported/Identified Relationship to Patient Clinical Status Yes methotrexate [id number] Drug Allergy Unknown N/A 03/24/2014 Yes cefadroxil [id number] Drug Allerg y Mild N/A 01/01/2017 Yes diltiazem [id number] Drug Allergy Unknown mouth burning a 02/23/2017 Yes Yrjwvdf-Zjb-Lea Reductase Inhibitor [id number] Drug Allergy Moderate GI UPSET, N/V 11/06/2017 Yes Sulfa (Sulfonamide Antibiotics) [id number] Drug Allergy Unknown N/A 019 Medications There is no data. Problems Date Dx Coded Attending Type Code Diagnosis Diagnosed By SHIREEN AGARWAL Ot D50.9 IRON DEFICIENCY ANEMIA, UNSPECIFIED SHIREEN AGARWAL Ot E03.9 HYPOTHYROIDISM, UNSPECIFIED SHIREEN AGARWAL Ot E11.22 TYPE 2 DIABETES MELLITUS W DIABETIC RESPIRATORY CLINICIAN SHIREEN AGARWAL Ot I12.9 HYPERTENSIVE CHRONIC KIDNEY DISEASE W ST SHIREEN AGARWAL Ot I25.10 ATHSCL HEART DISEASE OF [place] CORONARY SHIREEN AGARWAL Ot I48.91 UNSPECIFIED ATRIAL FIBRILLATION SHIREEN AGARWAL Ot N18.3 CHRONIC KIDNEY DISEASE, STAGE 3 (MODERAT SHIREEN AGARWAL Ot Z79.899 OTHER COMPOSITION MOLDER (CURRENT) DRUG THERAPY 05/14/1018 BRANDEN HAIDER MD, Ot D50.9 IRON DEFICIENCY ANEMIA, UNSPECIFIED 05/14/1018 BRANDEN HAIDER MD, Ot E03.9 HYPOTHYROIDISM, UNSPECIFIED 05/14/1018 BRANDEN HAIDER MD Ot E11.22 TYPE 2 DIABETES MELLITUS W DIABETIC RESPIRATORY CLINICIAN 05/14/1018 BRANDEN HAIDER MD Ot I12.9 HYPERTENSIVE CHRONIC KIDNEY DISEASE W ST 05/14/1018 MELIZA KHOURY, BRANDEN Ot I25.10 ATHSCL HEART DISEASE OF [place] CORONARY 05/14/1018 MELIZA KHOURY, BRANDEN Ot I48.91 UNSPECIFIED ATRIAL FIBRILLATION 05/14/1018 MELIZA KHOURY, BRANDEN Ot N18.3 CHRONIC KIDNEY DISEASE, STAGE 3 (MODERAT 05/14/1018 MELIZA KHOURY, BRANDEN Ot Z79.899 OTHER COMPOSITION MOLDER (CURRENT) DRUG THERAPY 05/14/1557 SHIREEN AGARWAL N Ot D50.0 IRON DEFICIENCY ANEMIA SECONDARY TO BLOO 05/14/1557 SHIREEN AGARWAL N Ot E03.9 HYPOTHYROIDISM, UNSPECIFIED 05/14/1557 SHIREEN AGARWAL N Ot E11.22 TYPE 2 DIABETES MELLITUS W DIABETIC RESPIRATORY CLINICIAN 05/14/1557 SHIREEN AGARWAL Ot E53.8 DEFICIENCY OF OTHER SPECIFIED B GROUP 05/14/1557 SHIREEN AGARWAL N Ot I12.9 HYPERTENSIVE CHRONIC KIDNEY DISEASE W ST 05/14/1557 SHIREEN AGARWAL N Ot I25.10 ATHSCL HEART DISEASE OF [place] CORONARY 05/14/1557 SHIREEN AGARWAL N Ot I48.91 UNSPECIFIED ATRIAL FIBRILLATION 05/14/1557 SHIREEN AGARWAL N Ot K31.819 ANGIODYSPLASIA OF STOMACH AND DUODENUM W 05/14/1557 SHIREEN AGARWAL N Ot K74.60 UNSPECIFIED CIRRHOSIS OF LIVER 05/14/1557 SHIREEN AGARWAL N Ot N18.3 CHRONIC KIDNEY DISEASE, STAGE 3 (MODERAT 05/14/1557 SHIREEN AGARWAL N Ot Z79.899 OTHER COMPOSITION MOLDER (CURRENT) DRUG THERAPY 05/22/2010 Ot 250.00 AWA B NALLELY WO COMPL, TYPE II OR UNSPEC TY 05/22/2010 Ot 272.4 HYPE RLIPIDEMIA NEC/NOS 05/22/2010 Ot 401.9 HYPE RTENSION NOS 05/22/2010 Ot 414.01 COR ONARY ATHEROSCLEROSIS OF [place] CORON 05/22/2010 Ot 427.31 ATR IAL FIBRILLATION 03/02/2014 LINDA KHOURY FACFernanda, ALI FACP CCDS Ot 244.9 HYPOTHYROIDISM NOS 03/02/2014 LINDA KHOURY FACC, ALI FACP CCDS Ot 250.00 DIAB ANLLELY WO COMPL, TYPE II OR UNSPEC TY 03/02/2014 LINDA KHOURY FACC, ALI FACP CCDS Ot 272.4 HYPERLIPIDEMIA NEC/NOS 03/02/2014 LINDA KHOURY FACC, ALI FACP CCDS Ot 285.9 ANEMIA NOS 03/02/2014 LINDA KHOURY FACC, ALI FACP CCDS Ot 401.9 HYPERTENSION NOS 03/02/2014 LINDA KHOURY FACC, ALI FACP CCDS Ot 414.01 CORONARY ATHEROSCLEROSIS OF [place] CORON 03/02/2014 LINDA KHOURY FACFernanda, ALI FACP [...] BOBAN N Ot 414.01 CORONARY ATHEROSCLEROSIS OF [place] CORON 05/16/2014 ANY, BOBAN N Ot 585.3 [...] BOBAN N Ot 414.01 CORONARY ATHEROSCLEROSIS OF [place] CORON 08/30/2014 ANY, BOBAN N Ot 585.3 [...] 10/05/2014 Ot 250.00 10/05/2014 ROB CHICHI Neville EDGE WORKER Ot 574.20 10/05/2014 ROB CHICHI H EDGE WORKER Ot 789.1 10/05/2014 LINDA KHOURY FACC, ALI [...] 272.4 10/05/2014 Ot 250.00 10/05/2014 CHICHI RIVAS EDGE WORKER Ot 574.20 10/05/2014 CHICHI RIVAS EDGE WORKER Ot 789.1 10/05/2014 LINDA KHOURY FAC, ALI [...] BOBAN N Ot 414.01 CORONARY ATHEROSCLEROSIS OF [place] CORON 12/27/2014 ANY, BOBAN N Ot 585.3 [...] N Ot I25.10 ATHSCL HEART DISEASE OF [place] CORONARY 06/13/2015 ANYSHIREEN N Ot I48.91 UNSPECIFIED ATRIAL FIBRILLATION 06/13/2015 ANY, BOBAN N Ot N18.3 CHRONIC KIDNEY DISEASE, STAGE 3 (MODERAT 06/13/2015 ANYJJAN N Ot V58.69 OTH MED,LT,CURRENT USE 06/13/2015 ANY BOBAN N Ot Z79.899 OTHER COMPOSITION MOLDER (CURRENT) DRUG THERAPY 09/27/2015 ANY BOBAN N Ot D64.9 09/27/2015 ANY, BOBAN N Ot E03.9 09/27/2015 ANY, BOBAN N Ot E11.9 09/27/2015 ANY, BOBAN N Ot I12.9 09/27/2015 SHIREEN AGARWAL N Ot I25.10 09/27/2015 SHIREEN AGARWAL N Ot I48.91 09/27/2015 SHIREEN AGARWAL N Ot N18.3 09/27/2015 SHIREEN AGARWAL N Ot Z79.899 09/27/2015 Ot 401.9 09/27/2015 Ot 272.4 09/27/2015 Ot 250.00 09/27/2015 CHICHI RIVAS EDGE WORKER Ot 574.20 09/27/2015 CHICHI RIVAS EDGE WORKER Ot 789.1 09/27/2015 LINDA KHOURY FACC, ALI [...] N Ot I25.10 ATHSCL HEART DISEASE OF [place] CORONARY 10/09/2015 ANY, BOBAN N Ot I48.91 UNSPECIFIED ATRIAL FIBRILLATION 10/09/2015 ANY, BOBAN N Ot N18.3 CHRONIC KIDNEY DISEASE, STAGE 3 (MODERAT 10/09/2015 ANY, BOBAN N Ot Z79.899 OTHER CARE HOME (CURRENT) DRUG THERAPY 10/17/2015 ANY, BOBAN N Ot D64.9 ANEMIA, UNSPECIFIED 10/17/2015 ANY, BOBAN N Ot E03.9 HYPOTHYROIDISM, UNSPECIFIED 10/17/2015 ANY, BOBAN N Ot E11.22 TYPE 2 DIABETES MELLITUS W DIABETIC RESPIRATORY CLINICIAN 10/17/2015 ANY, BOBAN N Ot I12.9 HYPERTENSIVE CHRONIC KIDNEY DISEASE W ST 10/17/2015 ANY, BOBAN N Ot I25.10 ATHSCL HEART DISEASE OF [place] CORONARY 10/17/2015 ANY, BOBAN N Ot I48.91 UNSPECIFIED ATRIAL FIBRILLATION 10/17/2015 ANY, BOBAN N Ot N18.3 CHRONIC KIDNEY DISEASE, STAGE 3 (MODERAT 10/17/2015 ANY, BOBAN N Ot Z79.899 OTHER COMPOSITION MOLDER (CURRENT) DRUG THERAPY 10/19/2015 SHIREEN AGARWAL N Ot D64.9 ANEMIA, UNSPECIFIED 10/19/2015 SHIREEN AGARWAL N Ot E03.9 HYPOTHYROIDISM, UNSPECIFIED 10/19/2015 SHIREEN AGARWAL N Ot E11.22 TYPE 2 DIABETES MELLITUS W DIABETIC RESPIRATORY CLINICIAN 10/19/2015 SHIREEN AGARWAL N Ot I12.9 HYPERTENSIVE CHRONIC KIDNEY DISEASE W ST 10/19/2015 SHIREEN AGARWAL N Ot I25.10 ATHSCL HEART DISEASE OF [place] CORONARY 10/19/2015 SHIREEN AGARWAL N Ot I48.91 UNSPECIFIED ATRIAL FIBRILLATION 10/19/2015 SHIREEN AGARWAL N Ot N18.3 CHRONIC KIDNEY DISEASE, STAGE 3 (MODERAT 10/19/2015 SHIREEN AGARWAL N Ot Z79.899 OTHER COMPOSITION MOLDER (CURRENT) DRUG THERAPY 11/16/2015 SHIREEN AGARWAL N Ot D50.9 IRON DEFICIENCY ANEMIA, UNSPECIFIED 11/16/2015 SHIREEN AGARWAL N Ot Z79.899 OTHER COMPOSITION MOLDER (CURRENT) DRUG THERAPY 12/03/2015 SHIREEN AGARWAL N Ot D50.9 IRON DEFICIENCY ANEMIA, UNSPECIFIED 12/03/2015 SHIREEN AGARWAL N Ot Z79.899 OTHER CARE HOME (CURRENT) DRUG THERAPY 01/03/2016 Ot 272.4 HYPE RLIPIDEMIA NEC/NOS 01/03/2016 Ot 250.00 AWA B NALLELY WO COMPL, TYPE II OR UNSPEC TY 01/03/2016 CHICHI RIVAS EDGE WORKER Ot 574.20 CHOLELITHIASIS NOS 01/03/2016 CHICHI RIVAS EDGE WORKER Ot 789.1 HEPATOMEGALY 01/03/2016 LINDA KHOURY FACC, [...] Ot 401.9 HYPERTENSION NOS 01/03/2016 LINDA KHOURY [facility] CCDS Ot 427.0 PAROX ATRIAL TACHYCARDIA 01/03/2016 LINDA KHOURY FAC, [facility] CCDS Ot 785.1 PALPITATIONS 01/03/2016 Ot 244.9 HYPO THYROIDISM NOS 01/03/2016 Ot 280.9 IRON DEFIC ANEMIA NOS 01/03/2016 Ot 585.3 RESPIRATORY CLINICIAN LEANDRO KIDNEY DISEASE, STAGE III (MODER 01/03/2016 [...] E11.22 TYPE 2 DIABETES MELLITUS W DIABETIC RESPIRATORY CLINICIAN 01/03/2016 SHIREEN AGARWAL Ot I12.9 HYPERTENSIVE CHRONIC KIDNEY DISEASE W ST 01/03/2016 SHIREEN AGARWAL Ot I25.10 ATHSCL HEART DISEASE OF [place] CORONARY 01/03/2016 SHIREEN AGARWAL Ot I48.91 UNSPECIFIED ATRIAL FIBRILLATION 01/03/2016 ANY, BOBAN N Ot N18.3 CHRONIC KIDNEY DISEASE, STAGE 3 (MODERAT 01/03/2016 ANYSHIREEN BALDWIN N Ot Z79.899 OTHER COMPOSITION MOLDER (CURRENT) DRUG THERAPY 01/03/2016 SHIREEN AGARWAL N Ot D50.9 IRON DEFICIENCY ANEMIA, UNSPECIFIED 01/03/2016 SHIREEN AGARWAL N Ot Z79.899 OTHER CARE HOME (CURRENT) DRUG THERAPY 01/03/2016 SHIREEN AGARWAL N Ot D64.9 ANEMIA, UNSPECIFIED 01/03/2016 ANYSHIREEN BALDWIN N Ot E03.9 HYPOTHYROIDISM, UNSPECIFIED 01/03/2016 ANYSHIREEN BALDWIN N Ot E11.22 TYPE 2 DIABETES MELLITUS W DIABETIC RESPIRATORY CLINICIAN 01/03/2016 SHIREEN AGARWAL N Ot I12.9 HYPERTENSIVE CHRONIC KIDNEY DISEASE W ST 01/03/2016 SHIREEN AGARWAL N Ot I25.10 ATHSCL HEART DISEASE OF [place] CORONARY 01/03/2016 SHIREEN AGARWAL N Ot I48.91 UNSPECIFIED ATRIAL FIBRILLATION 01/03/2016 SHIREEN AGARWAL N Ot N18.3 CHRONIC KIDNEY DISEASE, STAGE 3 (MODERAT 01/03/2016 SHIREEN AGARWAL N Ot Z79.899 OTHER COMPOSITION MOLDER (CURRENT) DRUG THERAPY 01/03/2016 Ot 272.4 HYPE RLIPIDEMIA NEC/NOS 01/03/2016 Ot 250.00 AWA B NALLELY WO COMPL, TYPE II OR UNSPEC TY 01/03/2016 CHICHI RIVAS EDGE WORKER Ot 574.20 CHOLELITHIASIS NOS 01/03/2016 CHICHI RIVAS EDGE WORKER Ot 789.1 HEPATOMEGALY 01/03/2016 LINDA KHOURY FACC, [...] IRON DEFIC ANEMIA NOS 01/03/2016 Ot 585.3 RESPIRATORY CLINICIAN LEANDRO KIDNEY DISEASE, STAGE III (MODER 01/03/2016 [...] E11.22 TYPE 2 DIABETES MELLITUS W DIABETIC RESPIRATORY CLINICIAN 01/03/2016 SHIREEN AGARWAL Ot I12.9 HYPERTENSIVE CHRONIC KIDNEY DISEASE W ST 01/03/2016 SHIREEN AGARWAL Ot I25.10 ATHSCL HEART DISEASE OF [place] CORONARY 01/03/2016 SHIREEN AGARWAL Ot I48.91 UNSPECIFIED ATRIAL FIBRILLATION 01/03/2016 SHIREEN AGARWAL Ot N18.3 CHRONIC KIDNEY DISEASE, STAGE 3 (MODERAT 01/03/2016 SHIREEN AGARWAL Ot Z79.899 OTHER COMPOSITION MOLDER (CURRENT) DRUG THERAPY 01/03/2016 SHIREEN AGARWAL Ot D50.9 IRON DEFICIENCY ANEMIA, UNSPECIFIED 01/03/2016 SHIREEN AGARWAL Ot Z79.899 OTHER CARE HOME (CURRENT) DRUG THERAPY 01/04/2016 Ot 272.4 HYPE RLIPIDEMIA NEC/NOS 01/04/2016 Ot 250.00 AWA B NALLELY WO COMPL, TYPE II OR UNSPEC TY 01/04/2016 CHICHI RIVAS EDGE WORKER Ot 574.20 CHOLELITHIASIS NOS 01/04/2016 CHICHI RIVAS EDGE WORKER Ot 789.1 HEPATOMEGALY 01/04/2016 LINDA KHOURY FACC, [...] IRON DEFIC ANEMIA NOS 01/04/2016 Ot 585.3 RESPIRATORY CLINICIAN LEANDRO KIDNEY DISEASE, STAGE III (MODER 01/04/2016 [...] Ot E78.5 HYPERLIPIDEMIA, UNSPECIFIED 01/04/2016 OVI KHOURY, TOIR-FRANKIE Ot I10 ESSENTIAL (PRIMARY) HYPERTENSION 01/04/2016 OVI [...] E11.22 TYPE 2 DIABETES MELLITUS W DIABETIC RESPIRATORY CLINICIAN 01/04/2016 ANY, BOBAN N Ot I12.9 HYPERTENSIVE CHRONIC KIDNEY DISEASE W ST 01/04/2016 ANY BOBAN N Ot I25.10 ATHSCL HEART DISEASE OF [place] CORONARY 01/04/2016 ANY, BOBAN N Ot I48.91 UNSPECIFIED ATRIAL FIBRILLATION 01/04/2016 ANY BOBAN N Ot N18.3 CHRONIC KIDNEY DISEASE, STAGE 3 (MODERAT 01/04/2016 ANY BOBAN N Ot Z79.899 OTHER COMPOSITION MOLDER (CURRENT) DRUG THERAPY 01/04/2016 ANY BOBAN N Ot D50.9 IRON DEFICIENCY ANEMIA, UNSPECIFIED 01/04/2016 ANY, BOBAN N Ot Z79.899 OTHER COMPOSITION MOLDER (CURRENT) DRUG THERAPY 01/07/2016 ANY, BOBAN N Ot D50.9 IRON DEFICIENCY ANEMIA, UNSPECIFIED 01/07/2016 ANY, BOBAN N Ot Z79.899 OTHER COMPOSITION MOLDER (CURRENT) DRUG THERAPY 01/13/2016 ANY, BOBAN N Ot D50.9 IRON DEFICIENCY ANEMIA, UNSPECIFIED 01/13/2016 ANY, BOBAN N Ot Z79.899 OTHER COMPOSITION MOLDER (CURRENT) DRUG THERAPY 08/05/2016 Ot 250.00 AWA B NALLELY WO COMPL, TYPE II OR UNSPEC TY 08/05/2016 CHICHI RIVAS EDGE WORKER Ot 574.20 CHOLELITHIASIS NOS 08/05/2016 CHICHI RIVAS EDGE WORKER Ot 789.1 HEPATOMEGALY 08/05/2016 LINDA KHOURY FACC, [...] IRON DEFIC ANEMIA NOS 08/05/2016 Ot 585.3 RESPIRATORY CLINICIAN LAENDRO KIDNEY DISEASE, STAGE III (MODER 08/05/2016 Ot [...] I10 ESSENTIAL (PRIMARY) HYPERTENSION 08/05/2016 OVI KHOURY, UW Ot E03.9 HYPOTHYROIDISM, UNSPECIFIED 08/05/2016 OVI KHOURY, WU Ot E11.9 TYPE 2 DIABETES MELLITUS WITHOUT COMPLIC 08/05/2016 OVI KHOURY, WU Ot E78.5 HYPERLIPIDEMIA, UNSPECIFIED 08/05/2016 OVI KHOURY, WU Ot I10 ESSENTIAL (PRIMARY) HYPERTENSION 08/05/2016 ANY, BOBAN N Ot D64.9 ANEMIA, UNSPECIFIED 08/05/2016 ANY, BOBAN N Ot E03.9 HYPOTHYROIDISM, UNSPECIFIED 08/05/2016 ANY, BOBAN N Ot E11.22 TYPE 2 DIABETES MELLITUS W DIABETIC RESPIRATORY CLINICIAN 08/05/2016 ANY, BOBAN N Ot I12.9 HYPERTENSIVE CHRONIC KIDNEY DISEASE W ST 08/05/2016 ANY, BOBAN N Ot I25.10 ATHSCL HEART DISEASE OF [place] CORONARY 08/05/2016 ANY, BOBAN N Ot I48.91 UNSPECIFIED ATRIAL FIBRILLATION 08/05/2016 ANY, BOBAN N Ot N18.3 CHRONIC KIDNEY DISEASE, STAGE 3 (MODERAT 08/05/2016 ANY, BOBAN N Ot Z79.899 OTHER COMPOSITION MOLDER (CURRENT) DRUG THERAPY 09/15/2016 ANY, BOBAN N Ot D50.9 IRON DEFICIENCY ANEMIA, UNSPECIFIED 09/15/2016 ANY, BOBAN N Ot E03.9 HYPOTHYROIDISM, UNSPECIFIED 09/15/2016 ANY, BOBAN N Ot E11.22 TYPE 2 DIABETES MELLITUS W DIABETIC RESPIRATORY CLINICIAN 09/15/2016 ANY, BOBAN N Ot I12.9 HYPERTENSIVE CHRONIC KIDNEY DISEASE W ST 09/15/2016 ANY, BOBAN N Ot I25.10 ATHSCL HEART DISEASE OF [place] CORONARY 09/15/2016 ANY, BOBAN N Ot I48.91 UNSPECIFIED ATRIAL FIBRILLATION 09/15/2016 ANY, BOBAN N Ot N18.3 CHRONIC KIDNEY DISEASE, STAGE 3 (MODERAT 09/15/2016 ANY, BOBAN N Ot Z79.899 OTHER CARE HOME (CURRENT) DRUG THERAPY 09/17/2016 Ot 250.00 AWA B NALLELY WO COMPL, TYPE II OR UNSPEC TY 09/17/2016 CHICHI RIVAS EDGE WORKER Ot 574.20 CHOLELITHIASIS NOS 09/17/2016 CHICHI RIVAS EDGE WORKER Ot 789.1 HEPATOMEGALY 09/17/2016 LINDA KHOURY FACC, [...] IRON DEFIC ANEMIA NOS 09/17/2016 Ot 585.3 RESPIRATORY CLINICIAN LEANDRO KIDNEY DISEASE, STAGE III (MODER 09/17/2016 [...] E11.22 TYPE 2 DIABETES MELLITUS W DIABETIC RESPIRATORY CLINICIAN 09/17/2016 ANY, BOBAN N Ot I12.9 HYPERTENSIVE CHRONIC KIDNEY DISEASE W ST 09/17/2016 ANY, BOBAN N Ot I25.10 ATHSCL HEART DISEASE OF [place] CORONARY 09/17/2016 ANY, BOBAN N Ot I48.91 UNSPECIFIED ATRIAL FIBRILLATION 09/17/2016 ANY, BOBAN N Ot N18.3 CHRONIC KIDNEY DISEASE, STAGE 3 (MODERAT 09/17/2016 ANY, BOBAN N Ot Z79.899 OTHER COMPOSITION MOLDER (CURRENT) DRUG THERAPY 09/17/2016 ANYSHIREEN BALDWIN N Ot D50.9 IRON DEFICIENCY ANEMIA, UNSPECIFIED 09/17/2016 ANY, SHIREEN N Ot E03.9 HYPOTHYROIDISM, UNSPECIFIED 09/17/2016 ANY, BOBAN N Ot E11.22 TYPE 2 DIABETES MELLITUS W DIABETIC RESPIRATORY CLINICIAN 09/17/2016 ANY, BOBAN N Ot I12.9 HYPERTENSIVE CHRONIC KIDNEY DISEASE W ST 09/17/2016 ANY, BOBAN N Ot I25.10 ATHSCL HEART DISEASE OF [place] CORONARY 09/17/2016 ANY, BOBONDINA N Ot I48.91 UNSPECIFIED ATRIAL FIBRILLATION 09/17/2016 ANY, BOBAN N Ot N18.3 CHRONIC KIDNEY DISEASE, STAGE 3 (MODERAT 09/17/2016 ANY, BOBAN N Ot Z79.899 OTHER CARE HOME (CURRENT) DRUG THERAPY 09/17/2016 KIERAN KHOURY, BERNY Champion Ot I25.10 ATHSCL HEART DISEASE OF [place] CORONARY 09/17/2016 Ot 250.00 AWA B NALLELY WO COMPL, TYPE II OR UNSPEC TY 09/17/2016 CHICHI RIVAS EDGE WORKER Ot 574.20 CHOLELITHIASIS NOS 09/17/2016 CHICHI RIVAS EDGE WORKER Ot 789.1 HEPATOMEGALY 09/17/2016 LINDA KHOURY FACC, [...] IRON DEFIC ANEMIA NOS 09/17/2016 Ot 585.3 RESPIRATORY CLINICIAN LEANDRO KIDNEY DISEASE, STAGE III (MODER 09/17/2016 [...] E11.22 TYPE 2 DIABETES MELLITUS W DIABETIC RESPIRATORY CLINICIAN 09/17/2016 ANY, BOBAN N Ot I12.9 HYPERTENSIVE CHRONIC KIDNEY DISEASE W ST 09/17/2016 ANY, BOBAN N Ot I25.10 ATHSCL HEART DISEASE OF [place] CORONARY 09/17/2016 ANY, BOBAN N Ot I48.91 UNSPECIFIED ATRIAL FIBRILLATION 09/17/2016 ANY, BOBAN N Ot N18.3 CHRONIC KIDNEY DISEASE, STAGE 3 (MODERAT 09/17/2016 ANY BOBAN N Ot Z79.899 OTHER COMPOSITION MOLDER (CURRENT) DRUG THERAPY 09/17/2016 ANY, BOBAN N Ot D50.9 IRON DEFICIENCY ANEMIA, UNSPECIFIED 09/17/2016 ANY, BOBAN N Ot E03.9 HYPOTHYROIDISM, UNSPECIFIED 09/17/2016 ANY, BOBAN N Ot E11.22 TYPE 2 DIABETES MELLITUS W DIABETIC RESPIRATORY CLINICIAN 09/17/2016 ANY, BOBAN N Ot I12.9 HYPERTENSIVE CHRONIC KIDNEY DISEASE W ST 09/17/2016 ANY, BOBONDINA N Ot I25.10 ATHSCL HEART DISEASE OF [place] CORONARY 09/17/2016 ANY, BOBAN N Ot I48.91 UNSPECIFIED ATRIAL FIBRILLATION 09/17/2016 ANY, BOBAN N Ot N18.3 CHRONIC KIDNEY DISEASE, STAGE 3 (MODERAT 09/17/2016 ANY, BOBAN N Ot Z79.899 OTHER CARE HOME (CURRENT) DRUG THERAPY 09/17/2016 KIERAN KHOURY, BERNY Champion Ot I25.10 ATHSCL HEART DISEASE OF [place] CORONARY 09/17/2016 Ot 250.00 AWA B NALLELY WO COMPL, TYPE II OR UNSPEC TY 09/17/2016 CHICHI RIVAS EDGE WORKER Ot 574.20 CHOLELITHIASIS NOS 09/17/2016 CHICHI RIVAS EDGE WORKER Ot 789.1 HEPATOMEGALY 09/17/2016 LINDA KHOURY FACC, [...] CCDS Ot 401.9 HYPERTENSION NOS 09/17/2016 LINDA KHORUY FACC, ALI FACP CCDS Ot 427.0 PAROX ATRIAL TACHYCARDIA 09/17/2016 LINDA KHOURY FAC, ALI FACP CCDS Ot 785.1 PALPITATIONS 09/17/2016 Ot 244.9 HYPO THYROIDISM NOS 09/17/2016 Ot 280.9 IRON DEFIC ANEMIA NOS 09/17/2016 Ot 585.3 RESPIRATORY CLINICIAN LEANDRO KIDNEY DISEASE, STAGE III (MODER 09/17/2016 Ot V58.69 OTH MED,LT,CURRENT USE 09/17/2016 Ot 250.02 AWA B ANLLELY WO COMPL, TYPE II OR UNSPEC TY [...] E11.22 TYPE 2 DIABETES MELLITUS W DIABETIC RESPIRATORY CLINICIAN 09/17/2016 SHIREEN AGARWAL Ot I12.9 HYPERTENSIVE CHRONIC KIDNEY DISEASE W ST 09/17/2016 ANY, BOBAN N Ot I25.10 ATHSCL HEART DISEASE OF [place] CORONARY 09/17/2016 ANY, BOBAN N Ot I48.91 UNSPECIFIED ATRIAL FIBRILLATION 09/17/2016 ANY, BOBAN N Ot N18.3 CHRONIC KIDNEY DISEASE, STAGE 3 (MODERAT 09/17/2016 ANY, BOBAN N Ot Z79.899 OTHER COMPOSITION MOLDER (CURRENT) DRUG THERAPY 09/17/2016 ANY, BOBAN N Ot D50.9 IRON DEFICIENCY ANEMIA, UNSPECIFIED 09/17/2016 ANY, BOBAN N Ot E03.9 HYPOTHYROIDISM, UNSPECIFIED 09/17/2016 ANY, BOBAN N Ot E11.22 TYPE 2 DIABETES MELLITUS W DIABETIC RESPIRATORY CLINICIAN 09/17/2016 ANY, BOBAN N Ot I12.9 HYPERTENSIVE CHRONIC KIDNEY DISEASE W ST 09/17/2016 ANY, BOBAN N Ot I25.10 ATHSCL HEART DISEASE OF [place] CORONARY 09/17/2016 ANY, BOBAN N Ot I48.91 UNSPECIFIED ATRIAL FIBRILLATION 09/17/2016 ANY, BOBAN N Ot N18.3 CHRONIC KIDNEY DISEASE, STAGE 3 (MODERAT 09/17/2016 ANY, BOBAN N Ot Z79.899 OTHER CARE HOME (CURRENT) DRUG THERAPY 09/17/2016 KIERAN KHOURY, BERNY Champion Ot I25.10 ATHSCL HEART DISEASE OF [place] CORONARY 09/17/2016 ANY, BOBAN N Ot D50.9 IRON DEFICIENCY ANEMIA, UNSPECIFIED 09/17/2016 ANY, BOBAN N Ot E03.9 HYPOTHYROIDISM, UNSPECIFIED 09/17/2016 ANY, BOBAN N Ot E11.22 TYPE 2 DIABETES MELLITUS W DIABETIC RESPIRATORY CLINICIAN 09/17/2016 ANY, BOBAN N Ot I12.9 HYPERTENSIVE CHRONIC KIDNEY DISEASE W ST 09/17/2016 ANY, BOBAN N Ot I25.10 ATHSCL HEART DISEASE OF [place] CORONARY 09/17/2016 ANY, BOBAN N Ot I48.91 UNSPECIFIED ATRIAL FIBRILLATION 09/17/2016 ANY, BOBAN N Ot N18.3 CHRONIC KIDNEY DISEASE, STAGE 3 (MODERAT 09/17/2016 ANY, BOBAN N Ot Z79.899 OTHER CARE HOME (CURRENT) DRUG THERAPY 09/17/2016 KIERAN KHOURY, BERNY R Ot I25.10 ATHSCL HEART DISEASE OF [place] CORONARY 09/17/2016 KIERAN KHOURY, BERNY Champion Ot I25.10 ATHSCL HEART DISEASE OF [place] CORONARY 10/09/2016 KIERAN KHOURY, BERNY Champion Ot I25.10 ATHSCL HEART DISEASE OF [place] CORONARY 10/09/2016 Ot 250.00 AWA B NALLELY WO COMPL, TYPE II OR UNSPEC TY 10/09/2016 CHICHI RIVAS EDGE WORKER Ot 574.20 CHOLELITHIASIS NOS 10/09/2016 CHICHI RIVAS EDGE WORKER Ot 789.1 HEPATOMEGALY 10/09/2016 LINDA KHOURY FACC, [...] IRON DEFIC ANEMIA NOS 10/09/2016 Ot 585.3 RESPIRATORY CLINICIAN LEANDRO KIDNEY DISEASE, STAGE III (MODER 10/09/2016 [...] E11.22 TYPE 2 DIABETES MELLITUS W DIABETIC RESPIRATORY CLINICIAN 10/09/2016 ANY, BOBAN N Ot I12.9 HYPERTENSIVE CHRONIC KIDNEY DISEASE W ST 10/09/2016 ANY, BOBAN N Ot I25.10 ATHSCL HEART DISEASE OF [place] CORONARY 10/09/2016 ANY, BOBAN N Ot I48.91 UNSPECIFIED ATRIAL FIBRILLATION 10/09/2016 ANY, BOBAN N Ot N18.3 CHRONIC KIDNEY DISEASE, STAGE 3 (MODERAT 10/09/2016 ANY, BOBAN N Ot Z79.899 OTHER COMPOSITION MOLDER (CURRENT) DRUG THERAPY 10/09/2016 ANY, BOBAN N Ot D50.9 IRON DEFICIENCY ANEMIA, UNSPECIFIED 10/09/2016 ANY, BOBAN N Ot E03.9 HYPOTHYROIDISM, UNSPECIFIED 10/09/2016 ANY, BOBAN N Ot E11.22 TYPE 2 DIABETES MELLITUS W DIABETIC RESPIRATORY CLINICIAN 10/09/2016 ANY, BOBAN N Ot I12.9 HYPERTENSIVE CHRONIC KIDNEY DISEASE W ST 10/09/2016 ANY, BOBAN N Ot I25.10 ATHSCL HEART DISEASE OF [place] CORONARY 10/09/2016 ANY, BOBAN N Ot I48.91 UNSPECIFIED ATRIAL FIBRILLATION 10/09/2016 ANY, BOBAN N Ot N18.3 CHRONIC KIDNEY DISEASE, STAGE 3 (MODERAT 10/09/2016 ANY, BOBAN N Ot Z79.899 OTHER CARE HOME (CURRENT) DRUG THERAPY 10/09/2016 KIERAN KHOURY, BERNY Champion Ot I25.10 ATHSCL HEART DISEASE OF [place] CORONARY 10/09/2016 KIERAN KHOURY, M ROMA Ot I47 .1 SUPRAVENTRICULAR TACHYCARDIA 10/09/2016 KIERAN KHOURY, Wei BRANDON Ot I48.91 UNSPECIFIED ATRIAL FIBRILLATION 10/30/2016 KIERAN KHOURY, BERNY R Ot I25.10 ATHSCL HEART DISEASE OF [place] CORONARY 11/03/2016 ANY, BOBAN N Ot D50.9 IRON DEFICIENCY ANEMIA, UNSPECIFIED 11/03/2016 ANY, BOBAN N Ot E03.9 HYPOTHYROIDISM, UNSPECIFIED 11/03/2016 ANY, BOBAN N Ot E11.22 TYPE 2 DIABETES MELLITUS W DIABETIC RESPIRATORY CLINICIAN 11/03/2016 ANY, BOBAN N Ot I12.9 HYPERTENSIVE CHRONIC KIDNEY DISEASE W ST 11/03/2016 ANY, BOBAN N Ot I25.10 ATHSCL HEART DISEASE OF [place] CORONARY 11/03/2016 ANY, BOBAN N Ot I48.91 UNSPECIFIED ATRIAL FIBRILLATION 11/03/2016 ANY, BOBAN N Ot N18.3 CHRONIC KIDNEY DISEASE, STAGE 3 (MODERAT 11/03/2016 ANY, BOBAN N Ot Z79.899 OTHER CARE HOME (CURRENT) DRUG THERAPY 11/04/2016 ANY, BOBAN N Ot D50.9 IRON DEFICIENCY ANEMIA, UNSPECIFIED 11/04/2016 ANY, BOBAN N Ot E03.9 HYPOTHYROIDISM, UNSPECIFIED 11/04/2016 ANY, BOBAN N Ot E11.22 TYPE 2 DIABETES MELLITUS W DIABETIC RESPIRATORY CLINICIAN 11/04/2016 ANY, BOBAN N Ot I12.9 HYPERTENSIVE CHRONIC KIDNEY DISEASE W ST 11/04/2016 ANY, BOBAN N Ot I25.10 ATHSCL HEART DISEASE OF [place] CORONARY 11/04/2016 ANY, BOBAN N Ot I48.91 UNSPECIFIED ATRIAL FIBRILLATION 11/04/2016 ANY, BOBAN N Ot N18.3 CHRONIC KIDNEY DISEASE, STAGE 3 (MODERAT 11/04/2016 ANY, BOBAN N Ot Z79.899 OTHER CARE HOME (CURRENT) DRUG THERAPY 11/17/2016 KIERAN KHOURY, BERNY R Ot I25.10 ATHSCL HEART DISEASE OF [place] CORONARY 11/18/2016 ANY, BOBAN N Ot D50.9 IRON DEFICIENCY ANEMIA, UNSPECIFIED 11/18/2016 ANY, BOBAN N Ot E03.9 HYPOTHYROIDISM, UNSPECIFIED 11/18/2016 ANY, BOBAN N Ot E11.22 TYPE 2 DIABETES MELLITUS W DIABETIC RESPIRATORY CLINICIAN 11/18/2016 ANY, BOBAN N Ot I12.9 HYPERTENSIVE CHRONIC KIDNEY DISEASE W ST 11/18/2016 ANY, BOBAN N Ot I25.10 ATHSCL HEART DISEASE OF [place] CORONARY 11/18/2016 ANY, BOBAN N Ot I48.91 UNSPECIFIED ATRIAL FIBRILLATION 11/18/2016 ANY, BOBAN N Ot N18.3 CHRONIC KIDNEY DISEASE, STAGE 3 (MODERAT 11/18/2016 ANY, BOBAN N Ot Z79.899 OTHER COMPOSITION MOLDER (CURRENT) DRUG THERAPY 12/10/2016 ANY, BOBAN N Ot D50.9 IRON DEFICIENCY ANEMIA, UNSPECIFIED 12/10/2016 ANY, BOBAN N Ot E03.9 HYPOTHYROIDISM, UNSPECIFIED 12/10/2016 ANY, BOBAN N Ot E11.22 TYPE 2 DIABETES MELLITUS W DIABETIC RESPIRATORY CLINICIAN 12/10/2016 ANY, BOBAN N Ot I12.9 HYPERTENSIVE CHRONIC KIDNEY DISEASE W ST 12/10/2016 ANY, BOBAN N Ot I25.10 ATHSCL HEART DISEASE OF [place] CORONARY 12/10/2016 ANY, BOBAN N Ot I48.91 UNSPECIFIED ATRIAL FIBRILLATION 12/10/2016 ANY, BOBAN N Ot N18.3 CHRONIC KIDNEY DISEASE, STAGE 3 (MODERAT 12/10/2016 ANY, BOBAN N Ot Z79.899 OTHER CARE HOME (CURRENT) DRUG THERAPY 12/12/2016 ANY, BOBAN N Ot D50.9 IRON DEFICIENCY ANEMIA, UNSPECIFIED 12/12/2016 ANY, BOBAN N Ot E03.9 HYPOTHYROIDISM, UNSPECIFIED 12/12/2016 ANY, BOBAN N Ot E11.22 TYPE 2 DIABETES MELLITUS W DIABETIC RESPIRATORY CLINICIAN 12/12/2016 ANY, BOBAN N Ot I12.9 HYPERTENSIVE CHRONIC KIDNEY DISEASE W ST 12/12/2016 ANY, BOBAN N Ot I25.10 ATHSCL HEART DISEASE OF [place] CORONARY 12/12/2016 ANY, BOBAN N Ot I48.91 UNSPECIFIED ATRIAL FIBRILLATION 12/12/2016 ANY, BOBAN N Ot N18.3 CHRONIC KIDNEY DISEASE, STAGE 3 (MODERAT 12/12/2016 ANY, BOBAN N Ot Z79.899 OTHER COMPOSITION MOLDER (CURRENT) DRUG THERAPY 12/16/2016 KIERAN KHOURY, Wei BRANDON Ot I47 .1 SUPRAVENTRICULAR TACHYCARDIA 12/16/2016 KIERAN KHOURY, Wei BRANDON Ot I48.91 UNSPECIFIED ATRIAL FIBRILLATION 12/20/2016 Wei ALCARAZ MD Ot I47 .1 SUPRAVENTRICULAR TACHYCARDIA 12/20/2016 Wei ALCARAZ MD Ot I48.91 UNSPECIFIED ATRIAL FIBRILLATION 12/31/2016 Ot 250.00 AWA B NALLELY WO COMPL, TYPE II OR UNSPEC TY 12/31/2016 ROB CHICHI H EDGE WORKER Ot 574.20 CHOLELITHIASIS NOS 12/31/2016 ROB CHICHI H EDGE WORKER Ot 789.1 HEPATOMEGALY 12/31/2016 LINDA KHOURY FACC, [...] IRON DEFIC ANEMIA NOS 12/31/2016 Ot 585.3 RESPIRATORY CLINICIAN LEANDRO KIDNEY DISEASE, STAGE III (MODER 12/31/2016 [...] E11.22 TYPE 2 DIABETES MELLITUS W DIABETIC RESPIRATORY CLINICIAN 12/31/2016 SHIREEN AGARWAL N Ot I12.9 HYPERTENSIVE CHRONIC KIDNEY DISEASE W ST 12/31/2016 SHIREEN AGARWAL N Ot I25.10 ATHSCL HEART DISEASE OF [place] CORONARY 12/31/2016 SHIREEN AGARWAL Ot I48.91 UNSPECIFIED ATRIAL FIBRILLATION 12/31/2016 SHIREEN AGARWAL N Ot N18.3 CHRONIC KIDNEY DISEASE, STAGE 3 (MODERAT 12/31/2016 SHIREEN AGARWAL Ot Z79.899 OTHER CARE HOME (CURRENT) DRUG THERAPY 12/31/2016 KIERAN KHOURY, BERNY R Ot I25.10 ATHSCL HEART DISEASE OF [place] CORONARY 12/31/2016 KIERAN KHOURY, BERNY R Ot I25.10 ATHSCL HEART DISEASE OF [place] CORONARY 12/31/2016 SHIREEN AGARWAL N Ot D50.9 IRON DEFICIENCY ANEMIA, UNSPECIFIED 12/31/2016 SHIREEN AGARWAL N Ot E03.9 HYPOTHYROIDISM, UNSPECIFIED 12/31/2016 SHIREEN AGARWAL N Ot E11.22 TYPE 2 DIABETES MELLITUS W DIABETIC RESPIRATORY CLINICIAN 12/31/2016 SHIREEN AGARWAL N Ot I12.9 HYPERTENSIVE CHRONIC KIDNEY DISEASE W ST 12/31/2016 SHIREEN AGARWAL N Ot I25.10 ATHSCL HEART DISEASE OF [place] CORONARY 12/31/2016 SHIREEN AGARWAL Solange Ot I48.91 UNSPECIFIED ATRIAL FIBRILLATION 12/31/2016 SHIREEN AGARWAL Solange Ot N18.3 CHRONIC KIDNEY DISEASE, STAGE 3 (MODERAT 12/31/2016 SHIREEN AGARWAL Ot Z79.899 OTHER COMPOSITION MOLDER (CURRENT) DRUG THERAPY 12/31/2016 KIERAN KHOURY, Wei BRANDON Ot I47 .1 SUPRAVENTRICULAR TACHYCARDIA 12/31/2016 KIERAN KHOURY, Wei BRANDON Ot I48.91 UNSPECIFIED ATRIAL FIBRILLATION 01/01/2017 KIERAN KHOURY, Wei BRANDON Ot I47 .1 SUPRAVENTRICULAR TACHYCARDIA 01/01/2017 KIERAN KHOURY, Wei BRANDON Ot I48.91 UNSPECIFIED ATRIAL FIBRILLATION 01/01/2017 NWAGWU, ISIDORE O HATCHERY HELPER Ot D64.9 ANEMIA, UNSPECIFIED 01/01/2017 NWAGWU, ISIDORE O HATCHERY HELPER Ot D64.9 ANEMIA, UNSPECIFIED 01/02/2017 SABRINA ROSSI DO Ot D50. 9 IRON DEFICIENCY ANEMIA, UNSPECIFIED 01/02/2017 SABRINA ROSSI DO D Ot E03. 9 HYPOTHYROIDISM, UNSPECIFIED 01/02/2017 SABRINA ROSSI DO D Ot E11. 22 TYPE 2 DIABETES MELLITUS W DIABETIC RESPIRATORY CLINICIAN 01/02/2017 SABRINA ROSSI DO Ot E78. 5 HYPERLIPIDEMIA, UNSPECIFIED 01/02/2017 SABRINA ROSSI DO D Ot I12. 9 HYPERTENSIVE CHRONIC KIDNEY DISEASE W ST 01/02/2017 SABRINA ROSSI DO Ot I25. 10 ATHSCL HEART DISEASE OF [place] CORONARY 01/02/2017 SABRINA ROSSI DO Ot I47. [...] 01/02/2017 SABRINA ROSSI DO Ot Z79. 01 CARE HOME (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 OF ANTICOAGULANT 01/02/2017 SABRINA ROSSI DO Ot Z79. 84 COMPOSITION MOLDER (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 OF ORAL HYPOGLYC 01/02/2017 SABRINA ROSSI DO Ot Z79.899 OTHER COMPOSITION MOLDER (CURRENT) DRUG THERAPY 01/02/2017 SABRINA ROSSI DO Ot Z80. 0 FAMILY HISTORY OF MALIGNANT NEOPLASM OF 01/02/2017 SABRINA ROSSI DO Ot Z95. 5 PRESENCE OF CORONARY ANGIOPLASTY IMPLANT 01/06/2017 SABRINA ROSSI DO Ot D50. 9 IRON DEFICIENCY ANEMIA, UNSPECIFIED 01/06/2017 SABRINA ROSSI DO Ot E03. 9 HYPOTHYROIDISM, UNSPECIFIED 01/06/2017 SABRINA ROSSI DO Ot E11. 22 TYPE 2 DIABETES MELLITUS W DIABETIC RESPIRATORY CLINICIAN 01/06/2017 SABRINA ROSSI DO Ot E78. 5 HYPERLIPIDEMIA, UNSPECIFIED 01/06/2017 SABRINA ROSSI DO Ot I12. 9 HYPERTENSIVE CHRONIC KIDNEY DISEASE W ST 01/06/2017 SABRINA ROSSI DO Ot I25. 10 ATHSCL HEART DISEASE OF [place] CORONARY 01/06/2017 SABRINA ROSSI DO Ot I47. [...] 01/06/2017 SABRINA ROSSI DO Ot Z79. 01 COMPOSITION MOLDER (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 OF ANTICOAGULANT 01/06/2017 SABRINA ROSSI DO Ot Z79. 84 CARE HOME (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 OF ORAL HYPOGLYC 01/06/2017 SABRINA ROSSI DO Ot Z79.899 OTHER CARE HOME (CURRENT) DRUG THERAPY 01/06/2017 FLO WOODSABRINA Ot Z80. 0 FAMILY HISTORY OF MALIGNANT NEOPLASM OF 01/06/2017 FLO WOODSABRINA Ot Z95. 5 PRESENCE OF CORONARY ANGIOPLASTY IMPLANT 01/29/2017 Ot 250.00 AWA B NALLELY WO COMPL, TYPE II OR UNSPEC TY 01/29/2017 CHICHI RIVAS EDGE WORKER Ot 574.20 CHOLELITHIASIS NOS 01/29/2017 CHICHI RIVAS EDGE WORKER Ot 789.1 HEPATOMEGALY 01/29/2017 LINDA KHOURY FACC, [...] IRON DEFIC ANEMIA NOS 01/29/2017 Ot 585.3 RESPIRATORY CLINICIAN LEANDRO KIDNEY DISEASE, STAGE III (MODER 01/29/2017 [...] E11.22 TYPE 2 DIABETES MELLITUS W DIABETIC RESPIRATORY CLINICIAN 01/29/2017 ANY BOBAN N Ot I12.9 HYPERTENSIVE CHRONIC KIDNEY DISEASE W ST 01/29/2017 SHIREEN AGARWAL N Ot I25.10 ATHSCL HEART DISEASE OF [place] CORONARY 01/29/2017 ANY BOBAN N Ot I48.91 UNSPECIFIED ATRIAL FIBRILLATION 01/29/2017 ANY BOBAN N Ot N18.3 CHRONIC KIDNEY DISEASE, STAGE 3 (MODERAT 01/29/2017 SHIREEN AGARWAL N Ot Z79.899 OTHER COMPOSITION MOLDER (CURRENT) DRUG THERAPY 01/29/2017 KIERAN KHOURY, BERNY R Ot I25.10 ATHSCL HEART DISEASE OF [place] CORONARY 01/29/2017 KIERAN KHOURY, BERNY R Ot I25.10 ATHSCL HEART DISEASE OF [place] CORONARY 01/29/2017 JJ AGARWALAN N Ot D50.9 IRON DEFICIENCY ANEMIA, UNSPECIFIED 01/29/2017 JJ AGARWALAN N Ot E03.9 HYPOTHYROIDISM, UNSPECIFIED 01/29/2017 ANY, BOBAN N Ot E11.22 TYPE 2 DIABETES MELLITUS W DIABETIC RESPIRATORY CLINICIAN 01/29/2017 ANY, BOBAN N Ot I12.9 HYPERTENSIVE CHRONIC KIDNEY DISEASE W ST 01/29/2017 ANY BOBAN N Ot I25.10 ATHSCL HEART DISEASE OF [place] CORONARY 01/29/2017 JJ AGARWALAN N Ot I48.91 UNSPECIFIED ATRIAL FIBRILLATION 01/29/2017 ANY, BOBAN N Ot N18.3 CHRONIC KIDNEY DISEASE, STAGE 3 (MODERAT 01/29/2017 SHIREEN AGARWAL Solange Ot Z79.899 OTHER CARE HOME (CURRENT) DRUG THERAPY 01/29/2017 Wei ALCARAZ MD [...] II OR UNSPEC TY 01/29/2017 CHICHI RIVAS EDGE WORKER Ot 574.20 CHOLELITHIASIS NOS 01/29/2017 CHICHI RIVAS EDGE WORKER Ot 789.1 HEPATOMEGALY 01/29/2017 LINDA KHOURY FACC, [...] IRON DEFIC ANEMIA NOS 01/29/2017 Ot 585.3 RESPIRATORY CLINICIAN LEANDRO KIDNEY DISEASE, STAGE III (MODER 01/29/2017 [...] E11.22 TYPE 2 DIABETES MELLITUS W DIABETIC RESPIRATORY CLINICIAN 01/29/2017 SHIREEN AGARWAL Ot I12.9 HYPERTENSIVE CHRONIC KIDNEY DISEASE W ST 01/29/2017 SHIREEN AGARWAL Ot I25.10 ATHSCL HEART DISEASE OF [place] CORONARY 01/29/2017 SHIREEN AGARWAL Ot I48.91 UNSPECIFIED ATRIAL FIBRILLATION 01/29/2017 SHIREEN AGARWAL Ot N18.3 CHRONIC KIDNEY DISEASE, STAGE 3 (MODERAT 01/29/2017 SHIREEN AGARWAL Ot Z79.899 OTHER CARE HOME (CURRENT) DRUG THERAPY 01/29/2017 KIERAN KHOURY, BERNY R Ot I25.10 ATHSCL HEART DISEASE OF [place] CORONARY 01/29/2017 KIERAN KHOURY, BERNY R Ot I25.10 ATHSCL HEART DISEASE OF [place] CORONARY 01/29/2017 SHIREEN AGARWAL Ot D50.9 IRON DEFICIENCY ANEMIA, UNSPECIFIED 01/29/2017 SHIREEN AGARWAL Solange Ot E03.9 HYPOTHYROIDISM, UNSPECIFIED 01/29/2017 SHIREEN AGARWAL N Ot E11.22 TYPE 2 DIABETES MELLITUS W DIABETIC RESPIRATORY CLINICIAN 01/29/2017 SHIREEN AGARWAL Solange Ot I12.9 HYPERTENSIVE CHRONIC KIDNEY DISEASE W ST 01/29/2017 SHIREEN AGARWAL Solange Ot I25.10 ATHSCL HEART DISEASE OF [place] CORONARY 01/29/2017 ANY JJONDINA Solange Ot I48.91 UNSPECIFIED ATRIAL FIBRILLATION 01/29/2017 SHIREEN AGARWAL Solange Ot N18.3 CHRONIC KIDNEY DISEASE, STAGE 3 (MODERAT 01/29/2017 SHIREEN AGARWAL Solange Ot Z79.899 OTHER COMPOSITION MOLDER (CURRENT) DRUG THERAPY 01/29/2017 KIERAN KHOURY, Wei [...] Ot I25.1 0 ATHSCL HEART DISEASE OF [place] CORONARY 01/31/2017 JAMES TORRES MD Ot I48.0 [...] 01/31/2017 JAMES TORRES MD Ot Z79.0 1 COMPOSITION MOLDER (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 OF ANTICOAGULANT 01/31/2017 JAMES TORRES MD Ot Z95.5 PRESENCE OF CORONARY ANGIOPLASTY IMPLANT 02/11/2017 SHIREEN AGARWAL Ot D50.9 IRON DEFICIENCY ANEMIA, UNSPECIFIED 02/11/2017 SHIREEN AGARWAL Ot E03.9 HYPOTHYROIDISM, UNSPECIFIED 02/11/2017 SHIREEN AGARWAL Ot E11.22 TYPE 2 DIABETES MELLITUS W DIABETIC RESPIRATORY CLINICIAN 02/11/2017 SHIREEN AGARWAL Ot I12.9 HYPERTENSIVE CHRONIC KIDNEY DISEASE W ST 02/11/2017 SHIREEN AGARWAL Ot I25.10 ATHSCL HEART DISEASE OF [place] CORONARY 02/11/2017 SHIREEN AGARWAL Ot I48.91 UNSPECIFIED ATRIAL FIBRILLATION 02/11/2017 SHIREEN AGARWAL Ot N18.3 CHRONIC KIDNEY DISEASE, STAGE 3 (MODERAT 02/11/2017 SHIREEN AGARWAL Ot Z79.899 OTHER COMPOSITION MOLDER (CURRENT) DRUG THERAPY 02/23/2017 KIERAN KHOURY, Wei [...] E11.22 TYPE 2 DIABETES MELLITUS W DIABETIC RESPIRATORY CLINICIAN 03/09/2017 ANY, BOBAN N Ot I12.9 HYPERTENSIVE CHRONIC KIDNEY DISEASE W ST 03/09/2017 ANY, BOBAN N Ot I25.10 ATHSCL HEART DISEASE OF [place] CORONARY 03/09/2017 ANY, BOBAN N Ot I48.91 UNSPECIFIED ATRIAL FIBRILLATION 03/09/2017 ANY, BOBAN N Ot N18.3 CHRONIC KIDNEY DISEASE, STAGE 3 (MODERAT 03/09/2017 ANY, BOBAN N Ot Z79.899 OTHER CARE HOME (CURRENT) DRUG THERAPY 03/10/2017 ANY BOBAN N Ot D50.9 IRON DEFICIENCY ANEMIA, UNSPECIFIED 03/10/2017 ANY BOBAN N Ot E03.9 HYPOTHYROIDISM, UNSPECIFIED 03/10/2017 ANY, BOBAN N Ot E11.22 TYPE 2 DIABETES MELLITUS W DIABETIC RESPIRATORY CLINICIAN 03/10/2017 ANY BOBAN N Ot I12.9 HYPERTENSIVE CHRONIC KIDNEY DISEASE W ST 03/10/2017 ANY BOBAN N Ot I25.10 ATHSCL HEART DISEASE OF [place] CORONARY 03/10/2017 ANY, BOBAN N Ot I48.91 UNSPECIFIED ATRIAL FIBRILLATION 03/10/2017 ANY, BOBAN N Ot N18.3 CHRONIC KIDNEY DISEASE, STAGE 3 (MODERAT 03/10/2017 ANY, BOBAN N Ot Z79.899 OTHER COMPOSITION MOLDER (CURRENT) DRUG THERAPY 03/13/2017 ROSSI DO, SABRINA [...] E11.22 TYPE 2 DIABETES MELLITUS W DIABETIC RESPIRATORY CLINICIAN 03/20/2017 SHIREEN AGARWAL N Ot I12.9 HYPERTENSIVE CHRONIC KIDNEY DISEASE W ST 03/20/2017 SHIREEN AGARWAL N Ot I25.10 ATHSCL HEART DISEASE OF [place] CORONARY 03/20/2017 SHIREEN AGARWAL N Ot I48.91 UNSPECIFIED ATRIAL FIBRILLATION 03/20/2017 SHIREEN AGARWAL N Ot N18.3 CHRONIC KIDNEY DISEASE, STAGE 3 (MODERAT 03/20/2017 SHIREEN AGARWAL N Ot Z79.899 OTHER COMPOSITION MOLDER (CURRENT) DRUG THERAPY 04/01/2017 SHIREEN AGARWAL N [...] TORRES MD Ot E03.9 HYPOTHYROIDISM, UNSPECIFIED 06/10/2017 JAMSE TORRES MD Ot E11.9 TYPE 2 DIABETES [...] II OR UNSPEC TY 06/16/2017 CHICHI RIVAS EDGE WORKER Ot 574.20 CHOLELITHIASIS NOS 06/16/2017 CHICHI RIVAS EDGE WORKER Ot 789.1 HEPATOMEGALY 06/16/2017 LINDA KHOURY FACC, [...] IRON DEFIC ANEMIA NOS 06/16/2017 Ot 585.3 RESPIRATORY CLINICIAN LEANDRO KIDNEY DISEASE, STAGE III (MODER 06/16/2017 [...] E11.22 TYPE 2 DIABETES MELLITUS W DIABETIC RESPIRATORY CLINICIAN 06/16/2017 SHIREEN AGARWAL Ot I12.9 HYPERTENSIVE CHRONIC KIDNEY DISEASE W ST 06/16/2017 SHIREEN AGARWAL Ot I25.10 ATHSCL HEART DISEASE OF [place] CORONARY 06/16/2017 SHIREEN AGARWAL Ot I48.91 UNSPECIFIED ATRIAL FIBRILLATION 06/16/2017 SHIREEN AGARWAL Ot N18.3 CHRONIC KIDNEY DISEASE, STAGE 3 (MODERAT 06/16/2017 SHIREEN AGARWAL Ot Z79.899 OTHER CARE HOME (CURRENT) DRUG THERAPY 06/16/2017 BERNY ALCARAZ MD Ot I25.10 ATHSCL HEART DISEASE OF [place] CORONARY 06/16/2017 BERNY ALCARAZ MD Ot I25.10 ATHSCL HEART DISEASE OF [place] CORONARY 06/16/2017 KIERAN KHOURY, Wei BRANDON Ot [...] E11.22 TYPE 2 DIABETES MELLITUS W DIABETIC RESPIRATORY CLINICIAN 06/22/2017 SHIREEN AGARWAL Ot I12.9 HYPERTENSIVE CHRONIC KIDNEY DISEASE W ST 06/22/2017 SHIREEN AGARWAL Ot I25.10 ATHSCL HEART DISEASE OF [place] CORONARY 06/22/2017 SHIREEN AGARWAL Ot I48.91 UNSPECIFIED ATRIAL FIBRILLATION 06/22/2017 SHIREEN AGARWAL Ot N18.3 CHRONIC KIDNEY DISEASE, STAGE 3 (MODERAT 06/22/2017 SHIREEN AGARWAL Ot Z79.899 OTHER CARE HOME (CURRENT) DRUG THERAPY 07/07/2017 ANY, BOBAN N Ot D50.9 IRON DEFICIENCY ANEMIA, UNSPECIFIED 07/07/2017 SHIREEN AGARWAL N Ot E03.9 HYPOTHYROIDISM, UNSPECIFIED 07/07/2017 SHIREEN AGARWAL N Ot E11.22 TYPE 2 DIABETES MELLITUS W DIABETIC RESPIRATORY CLINICIAN 07/07/2017 SHIREEN AGARWAL N Ot I12.9 HYPERTENSIVE CHRONIC KIDNEY DISEASE W ST 07/07/2017 SHIREEN AGARWAL N Ot I25.10 ATHSCL HEART DISEASE OF [place] CORONARY 07/07/2017 SHIREEN AGARWAL N Ot I48.91 UNSPECIFIED ATRIAL FIBRILLATION 07/07/2017 SHIREEN AGARWAL N Ot N18.3 CHRONIC KIDNEY DISEASE, STAGE 3 (MODERAT 07/07/2017 SHIREEN AGARWAL N Ot Z79.899 OTHER COMPOSITION MOLDER (CURRENT) DRUG THERAPY 07/07/2017 MELIZA KHOURY, BRANDEN Ot D50.9 IRON DEFICIENCY ANEMIA, UNSPECIFIED 07/07/2017 BRANDEN HAIDER MD Ot E03.9 HYPOTHYROIDISM, UNSPECIFIED 07/07/2017 MELIZA KHOURY, BRANDEN Ot E11.22 TYPE 2 DIABETES MELLITUS W DIABETIC RESPIRATORY CLINICIAN 07/07/2017 MELIZA KHOURY, BRANDEN Ot I12.9 HYPERTENSIVE CHRONIC KIDNEY DISEASE W ST 07/07/2017 MELIZA KHOURY, OTERO Ot I25.10 ATHSCL HEART DISEASE OF [place] CORONARY 07/07/2017 BRANDEN HAIDER MD Ot I48.91 UNSPECIFIED ATRIAL FIBRILLATION 07/07/2017 MELIZA KHOURY, BRANDEN Ot N18.3 CHRONIC KIDNEY DISEASE, STAGE 3 (MODERAT 07/07/2017 MELIZA KHOURY, BRANDEN Ot Z79.899 OTHER COMPOSITION MOLDER (CURRENT) DRUG THERAPY 07/10/2017 RACHELE JEFFERSON EDGE WORKER Ot D64.89 OTHER SPECIFIED ANEMIAS 07/10/2017 RACHELE JEFFERSON EDGE WORKER Ot R06.02 SHORTNESS OF BREATH 07/17/2017 DELARIANA [...] WOOD CARMINE B Ot Z79.8 99 OTHER COMPOSITION MOLDER (CURRENT) DRUG THERAPY 07/24/2017 LUIZARIANA DIVYA WOODIC [...] DO, CARMINE B Ot Z79.8 99 OTHER COMPOSITION MOLDER (CURRENT) DRUG THERAPY 07/24/2017 DELMAN DO, CARMINE [...] DO, CARMINE B Ot Z79.8 99 OTHER CARE HOME (CURRENT) DRUG THERAPY 07/28/2017 MELIZA KHOURY, BRANDEN Ot D50.9 IRON DEFICIENCY ANEMIA, UNSPECIFIED 07/28/2017 BRANDEN HAIDER MD Ot E03.9 HYPOTHYROIDISM, UNSPECIFIED 07/28/2017 BRANDEN HAIDER MD Ot E11.22 TYPE 2 DIABETES MELLITUS W DIABETIC RESPIRATORY CLINICIAN 07/28/2017 BRANDEN HAIDER MD Ot I12.9 HYPERTENSIVE CHRONIC KIDNEY DISEASE W ST 07/28/2017 BRANDEN HAIDER MD Ot I25.10 ATHSCL HEART DISEASE OF [place] CORONARY 07/28/2017 BRANDEN HAIDER MD Ot I48.91 UNSPECIFIED ATRIAL FIBRILLATION 07/28/2017 BRANDEN HAIDER MD Ot N18.3 CHRONIC KIDNEY DISEASE, STAGE 3 (MODERAT 07/28/2017 BRANDEN HAIDER MD Ot Z79.899 OTHER CARE HOME (CURRENT) DRUG THERAPY 07/29/2017 ANY, BOBAN N Ot D50.9 IRON DEFICIENCY ANEMIA, UNSPECIFIED 07/29/2017 ANY, BOBAN N Ot E03.9 HYPOTHYROIDISM, UNSPECIFIED 07/29/2017 ANY, BOBAN N Ot E11.22 TYPE 2 DIABETES MELLITUS W DIABETIC RESPIRATORY CLINICIAN 07/29/2017 ANY, BOBAN N Ot I12.9 HYPERTENSIVE CHRONIC KIDNEY DISEASE W ST 07/29/2017 ANY, BOBAN N Ot I25.10 ATHSCL HEART DISEASE OF [place] CORONARY 07/29/2017 ANY, BOBAN N Ot I48.91 UNSPECIFIED ATRIAL FIBRILLATION 07/29/2017 ANY, BOBAN N Ot N18.3 CHRONIC KIDNEY DISEASE, STAGE 3 (MODERAT 07/29/2017 ANY, BOBAN N Ot Z79.899 OTHER COMPOSITION MOLDER (CURRENT) DRUG THERAPY 08/11/2017 GISSELL DO, CARMINE [...] WOOD CARMINE B Ot Z79.8 99 OTHER COMPOSITION MOLDER (CURRENT) DRUG THERAPY 09/02/2017 SHIREEN AGARWAL N Ot D50.9 IRON DEFICIENCY ANEMIA, UNSPECIFIED 09/02/2017 SHIREEN AGARWAL N Ot E03.9 HYPOTHYROIDISM, UNSPECIFIED 09/02/2017 SHIREEN AGARWAL N Ot E11.22 TYPE 2 DIABETES MELLITUS W DIABETIC RESPIRATORY CLINICIAN 09/02/2017 SHIREEN AGARWAL N Ot I12.9 HYPERTENSIVE CHRONIC KIDNEY DISEASE W ST 09/02/2017 SHIREEN AGARWAL N Ot I25.10 ATHSCL HEART DISEASE OF [place] CORONARY 09/02/2017 SHIREEN AGARWAL N Ot I48.91 UNSPECIFIED ATRIAL FIBRILLATION 09/02/2017 SHIREEN AGARWAL N Ot N18.3 CHRONIC KIDNEY DISEASE, STAGE 3 (MODERAT 09/02/2017 JJ AGARWALAN N Ot Z79.899 OTHER CARE HOME (CURRENT) DRUG THERAPY 09/02/2017 Ot 250.00 AWA B NALLELY WO COMPL, TYPE II OR UNSPEC TY 09/02/2017 CHICHI RIVAS EDGE WORKER Ot 574.20 CHOLELITHIASIS NOS 09/02/2017 CHICHI RIVAS EDGE WORKER Ot 789.1 HEPATOMEGALY 09/02/2017 LINDA KHOURY FACC, [...] IRON DEFIC ANEMIA NOS 09/02/2017 Ot 585.3 RESPIRATORY CLINICIAN LEANDRO KIDNEY DISEASE, STAGE III (MODER 09/02/2017 Ot V58.69 OTH MED,LT,CURRENT USE 09/02/2017 Ot 250.02 AWA B NALLELY WO COMPL, TYPE II OR UNSPEC TY 09/02/2017 HARVEY KHOURY, CLAUDE S Ot 574.20 CHOLELITHIASIS NOS 09/02/2017 HARVEY KHOURY, CLAUDE Clement Ot 585.2 CHRONIC KIDNEY DISEASE, STAGE II (MILD) 09/02/2017 OVI KHOURY, TORI-FRANKIE Ot E03.9 HYPOTHYROIDISM, UNSPECIFIED 09/02/2017 OVI KHOURY, TORI-FRAKNIE Ot E11.6 5 TYPE 2 DIABETES MELLITUS [...] E11.22 TYPE 2 DIABETES MELLITUS W DIABETIC RESPIRATORY CLINICIAN 09/02/2017 SHIREEN AGARWAL Ot I12.9 HYPERTENSIVE CHRONIC KIDNEY DISEASE W ST 09/02/2017 SHIREEN AGARWAL Ot I25.10 ATHSCL HEART DISEASE OF [place] CORONARY 09/02/2017 SHIREEN AGARWAL Solange Ot I48.91 UNSPECIFIED ATRIAL FIBRILLATION 09/02/2017 SHIREEN AGARWAL Solange Ot N18.3 CHRONIC KIDNEY DISEASE, STAGE 3 (MODERAT 09/02/2017 SHIREEN AGARWAL Ot Z79.899 OTHER COMPOSITION MOLDER (CURRENT) DRUG THERAPY 09/02/2017 KIERAN KHOURY, BERNY Champion Ot I25.10 ATHSCL HEART DISEASE OF [place] CORONARY 09/02/2017 BERNY ALCARAZ MD Ot I25.10 ATHSCL HEART DISEASE OF [place] CORONARY 09/02/2017 KIERAN KHOURY, Wei BRANDON Ot I47 .1 SUPRAVENTRICULAR TACHYCARDIA 09/02/2017 KIERAN KHOURY, Wei BRANDNO Ot I48.91 UNSPECIFIED ATRIAL FIBRILLATION 09/02/2017 SABRINA ROSSI DO Ot D50. 9 IRON DEFICIENCY ANEMIA, UNSPECIFIED 09/02/2017 SABRINA ROSSI DO Ot R19. 5 OTHER FECAL ABNORMALITIES 09/02/2017 SABRINA ROSSI DO Ot Z01.818 ENCOUNTER FOR OTHER PREPROCEDURAL EXAMIN 09/02/2017 SABRINA ORSSI DO Ot Z80. 0 FAMILY HISTORY OF [...] 1 HYDROPS OF GALLBLADDER 09/02/2017 RACHELE JEFFERSON EDGE WORKER Ot D64.89 OTHER SPECIFIED ANEMIAS 09/02/2017 RACHELE JEFFERSON EDGE WORKER Ot R06.02 SHORTNESS OF BREATH 09/02/2017 ANYSHIREEN BALDWIN N Ot D50.9 IRON DEFICIENCY ANEMIA, UNSPECIFIED 09/02/2017 ANYJJ BALDWINAN N Ot E03.9 HYPOTHYROIDISM, UNSPECIFIED 09/02/2017 ANY, BOBAN N Ot E11.22 TYPE 2 DIABETES MELLITUS W DIABETIC RESPIRATORY CLINICIAN 09/02/2017 ANY BOBAN N Ot I12.9 HYPERTENSIVE CHRONIC KIDNEY DISEASE W ST 09/02/2017 ANY, BOBAN N Ot I25.10 ATHSCL HEART DISEASE OF [place] CORONARY 09/02/2017 ANYJJAN N Ot I48.91 UNSPECIFIED ATRIAL FIBRILLATION 09/02/2017 ANY BOBAN N Ot N18.3 CHRONIC KIDNEY DISEASE, STAGE 3 (MODERAT 09/02/2017 ANY, JJAN N Ot Z79.899 OTHER CARE HOME (CURRENT) DRUG THERAPY 09/13/2017 JAMES TORRES MD Ot D50.9 IRON DEFICIENCY ANEMIA, UNSPECIFIED 09/13/2017 JAMES TORRES MD Ot E03.9 HYPOTHYROIDISM, UNSPECIFIED 09/13/2017 JAMES TORRES MD Ot E11.9 TYPE 2 DIABETES MELLITUS WITHOUT COMPLIC 09/13/2017 JAMES TORRES MD Ot E78.5 HYPERLIPIDEMIA, UNSPECIFIED 09/13/2017 JAMES TORRES MD Ot I10 ESSENTIAL (PRIMARY) HYPERTENSION 09/13/2017 JAMES TORRES MD Ot I25.1 0 ATHSCL HEART DISEASE OF [place] CORONARY 09/13/2017 JAMES TORRES MD Ot I48.9 1 UNSPECIFIED ATRIAL FIBRILLATION 09/13/2017 JAMES TORRES MD Ot L40.9 PSORIASIS, UNSPECIFIED 09/13/2017 JAMES TORRES MD Ot R07.8 9 OTHER CHEST PAIN 09/13/2017 JAMES TORRES MD Ot R51 HEADACHE 09/13/2017 JAMES TORRES MD Ot R60.0 LOCALIZED EDEMA 09/13/2017 JAMES TORRES MD Ot Z79.8 99 OTHER CARE HOME (CURRENT) DRUG THERAPY 09/13/2017 JAMES TORRES MD [...] Ot I25.1 0 ATHSCL HEART DISEASE OF [place] CORONARY 09/13/2017 JAMES TORRES MD Ot I48.9 1 UNSPECIFIED ATRIAL FIBRILLATION 09/13/2017 JAMES TORRES MD Ot L40.9 PSORIASIS, UNSPECIFIED 09/13/2017 JAMES TORRES MD Ot R07.8 9 OTHER CHEST PAIN 09/13/2017 JAMES TORRES MD Ot R51 HEADACHE 09/13/2017 JAMES TORRES MD Ot R60.0 LOCALIZED EDEMA 09/13/2017 JAMES TORRES MD Ot Z79.8 99 OTHER CARE HOME (CURRENT) DRUG THERAPY 09/13/2017 JAMES TORRES MD [...] ADULT 10/05/2017 TOMASA CARMONA MD Ot Z79.84 CARE HOME (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 OF ORAL HYPOGLYC 10/05/2017 TOMASA CARMONA MD, Ot Z79.899 OTHER CARE HOME (CURRENT) DRUG THERAPY 10/05/2017 TOMASA CARMONA MD, [...] ADULT 10/05/2017 TOMASA CARMONA MD, Ot Z79.84 COMPOSITION MOLDER (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 OF ORAL HYPOGLYC 10/05/2017 TOMASA CARMONA MD, Ot Z79.899 OTHER CARE HOME (CURRENT) DRUG THERAPY 10/05/2017 TOMASA CARMONA MD, Ot Z87.8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 10/05/2017 TOMASA CARMONA MD, Ot Z88 .1 ALLERGY STATUS TO OTHER ANTIBIOTIC AGENT 10/05/2017 TOMASA CARMONA MD, Ot Z95 .5 PRESENCE OF CORONARY ANGIOPLASTY IMPLANT 10/05/2017 CHICHI RIVAS EDGE WORKER Ot 574.20 CHOLELITHIASIS NOS 10/05/2017 CHICHI RIVAS EDGE WORKER Ot 789.1 HEPATOMEGALY 10/05/2017 LINDA KHOURY FACC, [...] IRON DEFIC ANEMIA NOS 10/05/2017 Ot 585.3 RESPIRATORY CLINICIAN LEANDRO KIDNEY DISEASE, STAGE III (MODER 10/05/2017 [...] E11.22 TYPE 2 DIABETES MELLITUS W DIABETIC RESPIRATORY CLINICIAN 10/05/2017 SHIREEN AGARWAL Ot I12.9 HYPERTENSIVE CHRONIC KIDNEY DISEASE W ST 10/05/2017 SHIREEN AGARWAL Ot I25.10 ATHSCL HEART DISEASE OF [place] CORONARY 10/05/2017 SHIREEN AGARWAL Solange Ot I48.91 UNSPECIFIED ATRIAL FIBRILLATION 10/05/2017 SHIREEN AGARWAL Ot N18.3 CHRONIC KIDNEY DISEASE, STAGE 3 (MODERAT 10/05/2017 SHIREEN AGARWAL Ot Z79.899 OTHER COMPOSITION MOLDER (CURRENT) DRUG THERAPY 10/05/2017 BERNY ALCARAZ MD Ot I25.10 ATHSCL HEART DISEASE OF [place] CORONARY 10/05/2017 BERNY ALACRAZ MD Ot I25.10 ATHSCL HEART DISEASE OF [place] CORONARY 10/05/2017 KIERAN KHOURY, Wei BRANDON Ot [...] 1 HYDROPS OF GALLBLADDER 10/05/2017 RACHELE JEFFERSON EDGE WORKER Ot D64.89 OTHER SPECIFIED ANEMIAS 10/05/2017 RACHELE JEFFERSON EDGE WORKER Ot R06.02 SHORTNESS OF BREATH 10/05/2017 ANY, BOBAN N Ot D50.9 IRON DEFICIENCY ANEMIA, UNSPECIFIED 10/05/2017 ANY, BOBAN N Ot E03.9 HYPOTHYROIDISM, UNSPECIFIED 10/05/2017 ANY, BOBAN N Ot E11.22 TYPE 2 DIABETES MELLITUS W DIABETIC RESPIRATORY CLINICIAN 10/05/2017 ANY, BOBAN N Ot I12.9 HYPERTENSIVE CHRONIC KIDNEY DISEASE W ST 10/05/2017 ANY, BOBAN N Ot I25.10 ATHSCL HEART DISEASE OF [place] CORONARY 10/05/2017 ANY, BOBAN N Ot I48.91 UNSPECIFIED ATRIAL FIBRILLATION 10/05/2017 ANY, BOBAN N Ot N18.3 CHRONIC KIDNEY DISEASE, STAGE 3 (MODERAT 10/05/2017 ANY, BOBAN N Ot Z79.899 OTHER COMPOSITION MOLDER (CURRENT) DRUG THERAPY 10/26/2017 ANY, BOBAN N Ot D50.9 IRON DEFICIENCY ANEMIA, UNSPECIFIED 10/26/2017 ANY, BOBAN N Ot E03.9 HYPOTHYROIDISM, UNSPECIFIED 10/26/2017 ANY, BOBAN N Ot E11.22 TYPE 2 DIABETES MELLITUS W DIABETIC RESPIRATORY CLINICIAN 10/26/2017 ANY, BOBAN N Ot I12.9 HYPERTENSIVE CHRONIC KIDNEY DISEASE W ST 10/26/2017 ANY, BOBAN N Ot I25.10 ATHSCL HEART DISEASE OF [place] CORONARY 10/26/2017 ANY, BOBAN N Ot I48.91 UNSPECIFIED ATRIAL FIBRILLATION 10/26/2017 ANY, BOBAN N Ot N18.3 CHRONIC KIDNEY DISEASE, STAGE 3 (MODERAT 10/26/2017 ANY, BOBAN N Ot Z79.899 OTHER CARE HOME (CURRENT) DRUG THERAPY 10/27/2017 ANY, BOBAN N Ot D50.9 IRON DEFICIENCY ANEMIA, UNSPECIFIED 10/27/2017 ANY, BOBAN N Ot E03.9 HYPOTHYROIDISM, UNSPECIFIED 10/27/2017 ANY, BOBAN N Ot E11.22 TYPE 2 DIABETES MELLITUS W DIABETIC RESPIRATORY CLINICIAN 10/27/2017 ANY, BOBAN N Ot I12.9 HYPERTENSIVE CHRONIC KIDNEY DISEASE W ST 10/27/2017 ANY, BOBAN N Ot I25.10 ATHSCL HEART DISEASE OF [place] CORONARY 10/27/2017 ANY, BOBAN N Ot I48.91 UNSPECIFIED ATRIAL FIBRILLATION 10/27/2017 ANY, BOBAN N Ot N18.3 CHRONIC KIDNEY DISEASE, STAGE 3 (MODERAT 10/27/2017 ANY, BOBAN N Ot Z79.899 OTHER COMPOSITION MOLDER (CURRENT) DRUG THERAPY 10/28/2017 ANY, BOBAN N Ot D50.9 IRON DEFICIENCY ANEMIA, UNSPECIFIED 10/28/2017 ANY, BOBAN N Ot E03.9 HYPOTHYROIDISM, UNSPECIFIED 10/28/2017 ANY, BOBAN N Ot E11.22 TYPE 2 DIABETES MELLITUS W DIABETIC RESPIRATORY CLINICIAN 10/28/2017 ANY, BOBAN N Ot I12.9 HYPERTENSIVE CHRONIC KIDNEY DISEASE W ST 10/28/2017 ANY, BOBAN N Ot I25.10 ATHSCL HEART DISEASE OF [place] CORONARY 10/28/2017 ANY, BOBAN N Ot I48.91 UNSPECIFIED ATRIAL FIBRILLATION 10/28/2017 ANY, BOBAN N Ot N18.3 CHRONIC KIDNEY DISEASE, STAGE 3 (MODERAT 10/28/2017 ANY, BOBAN N Ot Z79.899 OTHER CARE HOME (CURRENT) DRUG THERAPY 10/28/2017 ANY, BOBAN N Ot D50.9 IRON DEFICIENCY ANEMIA, UNSPECIFIED 10/28/2017 ANY, BOBAN N Ot E03.9 HYPOTHYROIDISM, UNSPECIFIED 10/28/2017 ANY, BOBAN N Ot E11.22 TYPE 2 DIABETES MELLITUS W DIABETIC RESPIRATORY CLINICIAN 10/28/2017 ANY, BOBAN N Ot I12.9 HYPERTENSIVE CHRONIC KIDNEY DISEASE W ST 10/28/2017 ANY, BOBAN N Ot I25.10 ATHSCL HEART DISEASE OF [place] CORONARY 10/28/2017 ANY, BOBAN N Ot I48.91 UNSPECIFIED ATRIAL FIBRILLATION 10/28/2017 ANY, BOBAN N Ot N18.3 CHRONIC KIDNEY DISEASE, STAGE 3 (MODERAT 10/28/2017 ANY, BOBAN N Ot Z79.899 OTHER COMPOSITION MOLDER (CURRENT) DRUG THERAPY 10/28/2017 ANY, BOBAN N Ot D50.9 IRON DEFICIENCY ANEMIA, UNSPECIFIED 10/28/2017 ANY, BOBAN N Ot E03.9 HYPOTHYROIDISM, UNSPECIFIED 10/28/2017 ANY, BOBAN N Ot E11.22 TYPE 2 DIABETES MELLITUS W DIABETIC RESPIRATORY CLINICIAN 10/28/2017 ANY, BOBAN N Ot I12.9 HYPERTENSIVE CHRONIC KIDNEY DISEASE W ST 10/28/2017 JJ AGARWALAN N Ot I25.10 ATHSCL HEART DISEASE OF [place] CORONARY 10/28/2017 ANY, BOBAN N Ot I48.91 UNSPECIFIED ATRIAL FIBRILLATION 10/28/2017 ANY, BOBAN N Ot N18.3 CHRONIC KIDNEY DISEASE, STAGE 3 (MODERAT 10/28/2017 ANY, BOBAN N Ot Z79.899 OTHER COMPOSITION MOLDER (CURRENT) DRUG THERAPY 11/06/2017 KIERAN KHOURY, Wei BRANDON Ot I47 .1 SUPRAVENTRICULAR TACHYCARDIA 11/06/2017 KIERAN KHOURY, Wei BRANDON Ot I48.91 UNSPECIFIED ATRIAL FIBRILLATION 11/06/2017 NAY BOBAN N Ot D50.9 IRON DEFICIENCY ANEMIA, UNSPECIFIED 11/06/2017 SHIREEN AGARWAL N Ot E03.9 HYPOTHYROIDISM, UNSPECIFIED 11/06/2017 ANY, BOBAN N Ot E11.22 TYPE 2 DIABETES MELLITUS W DIABETIC RESPIRATORY CLINICIAN 11/06/2017 ANYSHIREEN BALDWIN N Ot I12.9 HYPERTENSIVE CHRONIC KIDNEY DISEASE W ST 11/06/2017 ANY BOBAN N Ot I25.10 ATHSCL HEART DISEASE OF [place] CORONARY 11/06/2017 JJ AGARWALAN N Ot I48.91 UNSPECIFIED ATRIAL FIBRILLATION 11/06/2017 SHIREEN AGARWAL N Ot N18.3 CHRONIC KIDNEY DISEASE, STAGE 3 (MODERAT 11/06/2017 ANY BOBAN N Ot Z79.899 OTHER CARE HOME (CURRENT) DRUG THERAPY 11/07/2017 TOMASA CARMONA MD Ot D50 .9 IRON DEFICIENCY ANEMIA, UNSPECIFIED 11/07/2017 TOMASA CARMONA MD Ot E11 .9 TYPE 2 DIABETES MELLITUS WITHOUT COMPLIC 11/07/2017 TOMASA CARMONA MD Ot I11 .0 HYPERTENSIVE HEART DISEASE WITH HEART FA 11/07/2017 TOMASA CARMONA MD Ot I25.10 ATHSCL HEART DISEASE OF [place] CORONARY 11/07/2017 TOMASA CARMONA MD Ot I25 .2 OLD MYOCARDIAL INFARCTION 11/07/2017 TOMASA CARMONA MD Ot I48.91 UNSPECIFIED ATRIAL FIBRILLATION 11/07/2017 TOMASA CARMONA MD Ot I50 .9 HEART FAILURE, UNSPECIFIED 11/07/2017 TOMASA CARMONA MD Ot K21 .9 GASTRO-ESOPHAGEAL REFLUX DISEASE WITHOUT 11/07/2017 TOMSAA CARMONA MD Ot N19 UNSPECIFIED KIDNEY FAILURE 11/07/2017 TOMASA CARMONA MD Ot Z79.84 CARE HOME (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 OF ORAL HYPOGLYC 11/07/2017 TOMASA CARMONA MD Ot Z79.899 OTHER CARE HOME (CURRENT) DRUG THERAPY 11/07/2017 TOMASA CARMONA MD Ot Z87.8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 11/10/2017 TOMASA CARMONA MD Ot D50 .9 IRON DEFICIENCY ANEMIA, UNSPECIFIED 11/10/2017 TOMASA CARMONA MD Ot E11 .9 TYPE 2 DIABETES MELLITUS WITHOUT COMPLIC 11/10/2017 TOMASA CARMONA MD Ot I11 .0 HYPERTENSIVE HEART DISEASE WITH HEART FA 11/10/2017 TOMASA CARMONA MD Ot I25.10 ATHSCL HEART DISEASE OF [place] CORONARY 11/10/2017 TOMASA CARMONA MD Ot I25 .2 OLD MYOCARDIAL INFARCTION 11/10/2017 TOMASA CARMONA MD Ot I48.91 UNSPECIFIED ATRIAL FIBRILLATION 11/10/2017 TOMASA CARMONA MD Ot I50 .9 HEART FAILURE, UNSPECIFIED 11/10/2017 TOMASA CARMONA MD Ot K21 .9 GASTRO-ESOPHAGEAL REFLUX DISEASE WITHOUT 11/10/2017 TOMASA CARMONA MD Ot N19 UNSPECIFIED KIDNEY FAILURE 11/10/2017 TOMASA CARMONA MD Ot Z79.84 COMPOSITION MOLDER (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 OF ORAL HYPOGLYC 11/10/2017 TOMASA CARMONA MD Ot Z79.899 OTHER CARE HOME (CURRENT) DRUG THERAPY 11/10/2017 TOMASA CARMONA MD Ot Z87.8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 11/12/2017 TOMASA CARMONA MD Ot D50 .9 IRON DEFICIENCY ANEMIA, UNSPECIFIED 11/12/2017 TOMASA CARMONA MD Ot E11 .9 TYPE 2 DIABETES MELLITUS WITHOUT COMPLIC 11/12/2017 TOMASA CARMONA MD Ot I11 .0 HYPERTENSIVE HEART DISEASE WITH HEART FA 11/12/2017 TOMASA CARMONA MD, Ot I25.10 ATHSCL HEART DISEASE OF [place] CORONARY 11/12/2017 TOMASA CARMONA MD, Ot I25 .2 OLD MYOCARDIAL INFARCTION 11/12/2017 TOMASA CARMONA MD Ot I48.91 UNSPECIFIED ATRIAL FIBRILLATION 11/12/2017 TOMASA CARMONA MD Ot I50 .9 HEART FAILURE, UNSPECIFIED 11/12/2017 TOMASA CARMONA MD Ot K21 .9 GASTRO-ESOPHAGEAL REFLUX DISEASE WITHOUT 11/12/2017 TOMASA CARMONA MD, Ot N19 UNSPECIFIED KIDNEY FAILURE 11/12/2017 TOMASA CARMONA MD, Ot Z79.84 COMPOSITION MOLDER (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 OF ORAL HYPOGLYC 11/12/2017 TOMASA CARMONA MD Ot Z79.899 OTHER COMPOSITION MOLDER (CURRENT) DRUG THERAPY 11/12/2017 TOMASA CARMONA MD [...] E11.22 TYPE 2 DIABETES MELLITUS W DIABETIC RESPIRATORY CLINICIAN 11/24/2017 SHIREEN AGARWAL Ot I12.9 HYPERTENSIVE CHRONIC KIDNEY DISEASE W ST 11/24/2017 SHIREEN AGARWAL Ot I25.10 ATHSCL HEART DISEASE OF [place] CORONARY 11/24/2017 SHIREEN AGARWAL Ot I48.91 UNSPECIFIED ATRIAL FIBRILLATION 11/24/2017 SHIREEN AGARWAL Ot N18.3 CHRONIC KIDNEY DISEASE, STAGE 3 (MODERAT 11/24/2017 SHIREEN AGARWAL Ot Z79.899 OTHER CARE HOME (CURRENT) DRUG THERAPY 11/30/2017 KELLY KHOURY, TUBA [...] E11.22 TYPE 2 DIABETES MELLITUS W DIABETIC RESPIRATORY CLINICIAN 01/25/2018 ANY, BOBAN N Ot I12.9 HYPERTENSIVE CHRONIC KIDNEY DISEASE W ST 01/25/2018 ANY, BOBAN N Ot I25.10 ATHSCL HEART DISEASE OF [place] CORONARY 01/25/2018 ANY, BOBAN N Ot I48.91 UNSPECIFIED ATRIAL FIBRILLATION 01/25/2018 ANY, BOBAN N Ot N18.3 CHRONIC KIDNEY DISEASE, STAGE 3 (MODERAT 01/25/2018 ANY, BOBAN N Ot Z79.899 OTHER CARE HOME (CURRENT) DRUG THERAPY 02/04/2018 ANY, BOBAN N Ot D50.9 IRON DEFICIENCY ANEMIA, UNSPECIFIED 02/04/2018 ANY, BOBAN N Ot E03.9 HYPOTHYROIDISM, UNSPECIFIED 02/04/2018 ANY, BOBAN N Ot E11.22 TYPE 2 DIABETES MELLITUS W DIABETIC RESPIRATORY CLINICIAN 02/04/2018 ANY, BOBAN N Ot I12.9 HYPERTENSIVE CHRONIC KIDNEY DISEASE W ST 02/04/2018 ANY, BOBAN N Ot I25.10 ATHSCL HEART DISEASE OF [place] CORONARY 02/04/2018 ANY, BOBAN N Ot I48.91 UNSPECIFIED ATRIAL FIBRILLATION 02/04/2018 ANY, BOBAN N Ot N18.3 CHRONIC KIDNEY DISEASE, STAGE 3 (MODERAT 02/04/2018 ANY, BOBAN N Ot Z79.899 OTHER COMPOSITION MOLDER (CURRENT) DRUG THERAPY 02/12/2018 BRIAN KHOURY, JAMES [...] Ot I25.1 10 ATHSCL HEART DISEASE OF [place] COR ART W 02/12/2018 JAMES TORRES MD, [...] E11.22 TYPE 2 DIABETES MELLITUS W DIABETIC RESPIRATORY CLINICIAN 03/02/2018 SHIREEN AGARWAL Ot I12.9 HYPERTENSIVE CHRONIC KIDNEY DISEASE W ST 03/02/2018 SHIREEN AGARWAL Ot I25.10 ATHSCL HEART DISEASE OF [place] CORONARY 03/02/2018 SHIREEN AGARWAL Ot I48.91 UNSPECIFIED ATRIAL FIBRILLATION 03/02/2018 SHIREEN AGARWAL Solange Ot N18.3 CHRONIC KIDNEY DISEASE, STAGE 3 (MODERAT 03/02/2018 SHIREEN AGARWAL Solange Ot Z79.899 OTHER COMPOSITION MOLDER (CURRENT) DRUG THERAPY 03/02/2018 MELIZA KHOURY, BRANDEN Ot D50.9 IRON DEFICIENCY ANEMIA, UNSPECIFIED 03/02/2018 MELIZA KHOURY, BRANDEN Ot E03.9 HYPOTHYROIDISM, UNSPECIFIED 03/02/2018 MELIZA KHOURY, BRANDEN Ot E11.22 TYPE 2 DIABETES MELLITUS W DIABETIC RESPIRATORY CLINICIAN 03/02/2018 BRANDEN HAIDER MD Ot I12.9 HYPERTENSIVE CHRONIC KIDNEY DISEASE W ST 03/02/2018 BRANDEN HAIDER MD Ot I25.10 ATHSCL HEART DISEASE OF [place] CORONARY 03/02/2018 MELIZA KHOURY, BRANDEN Ot I48.91 UNSPECIFIED ATRIAL FIBRILLATION 03/02/2018 BRANDEN HAIDER MD Ot N18.3 CHRONIC KIDNEY DISEASE, STAGE 3 (MODERAT 03/02/2018 MELIZA KHOURY, BRANDEN Ot Z79.899 OTHER CARE HOME (CURRENT) DRUG THERAPY 03/03/2018 Ot 401.9 HYPE RTENSION NOS 03/03/2018 Ot 272.4 HYPE RLIPIDEMIA NEC/NOS 03/03/2018 Ot 250.00 AWA B NALLELY WO COMPL, TYPE II OR UNSPEC TY 03/03/2018 CHICHI RIVAS EDGE WORKER Ot 574.20 CHOLELITHIASIS NOS 03/03/2018 CHICHI RIVAS EDGE WORKER Ot 789.1 HEPATOMEGALY 03/03/2018 LINDA KHOURY FACC, [...] IRON DEFIC ANEMIA NOS 03/03/2018 Ot 585.3 RESPIRATORY CLINICIAN LEANDRO KIDNEY DISEASE, STAGE III (MODER 03/03/2018 [...] E11.22 TYPE 2 DIABETES MELLITUS W DIABETIC RESPIRATORY CLINICIAN 03/03/2018 SHIREEN AGARWAL Ot I12.9 HYPERTENSIVE CHRONIC KIDNEY DISEASE W ST 03/03/2018 SHIREEN AGARWAL Ot I25.10 ATHSCL HEART DISEASE OF [place] CORONARY 03/03/2018 SHIREEN AGARWAL Ot I48.91 UNSPECIFIED ATRIAL FIBRILLATION 03/03/2018 SHIREEN AGARWAL Ot N18.3 CHRONIC KIDNEY DISEASE, STAGE 3 (MODERAT 03/03/2018 SHIREEN AGARWAL Ot Z79.899 OTHER CARE HOME (CURRENT) DRUG THERAPY 03/03/2018 KIERAN KHOURY, BERNY Champion Ot I25.10 ATHSCL HEART DISEASE OF [place] CORONARY 03/03/2018 BERNY ALCARAZ MD Ot I25.10 ATHSCL HEART DISEASE OF [place] CORONARY 03/03/2018 KIERAN KHOURY, Wei BRANDON Ot [...] 1 HYDROPS OF GALLBLADDER 03/03/2018 RACHELE JEFFERSON EDGE WORKER Ot D64.89 OTHER SPECIFIED ANEMIAS 03/03/2018 RACHELE JEFFERSON EDGE WORKER Ot R06.02 SHORTNESS OF BREATH 03/03/2018 KIERAN [...] E11.22 TYPE 2 DIABETES MELLITUS W DIABETIC RESPIRATORY CLINICIAN 03/03/2018 MELIZA KHOURY, BRANDEN Ot I12.9 HYPERTENSIVE CHRONIC KIDNEY DISEASE W ST 03/03/2018 MELIZA KHOURY, BRANDEN Ot I25.10 ATHSCL HEART DISEASE OF [place] CORONARY 03/03/2018 MELIZA KHOURY, BRANDEN Ot I48.91 UNSPECIFIED ATRIAL FIBRILLATION 03/03/2018 MELIZA KHOURY, BRANDEN Ot N18.3 CHRONIC KIDNEY DISEASE, STAGE 3 (MODERAT 03/03/2018 MELIZA KHOURY, BRANDEN Ot Z79.899 OTHER COMPOSITION MOLDER (CURRENT) DRUG THERAPY 03/03/2018 CHICHI RIVAS EDGE WORKER Ot 574.20 CHOLELITHIASIS NOS 03/03/2018 CHICHI RIVAS EDGE WORKER Ot 789.1 HEPATOMEGALY 03/03/2018 LINDA KHOURY FACC, [...] IRON DEFIC ANEMIA NOS 03/03/2018 Ot 585.3 RESPIRATORY CLINICIAN LEANDRO KIDNEY DISEASE, STAGE III (MODER 03/03/2018 [...] TYPE 2 DIABETES MELLITUS WITH HYPERGLYCE 03/03/2018 VOI KHOURY, TORI-FRANKIE Ot E78.5 HYPERLIPIDEMIA, UNSPECIFIED 03/03/2018 [...] E11.22 TYPE 2 DIABETES MELLITUS W DIABETIC RESPIRATORY CLINICIAN 03/03/2018 SHIREEN AGARWAL Ot I12.9 HYPERTENSIVE CHRONIC KIDNEY DISEASE W ST 03/03/2018 SHIREEN AGARWAL Ot I25.10 ATHSCL HEART DISEASE OF [place] CORONARY 03/03/2018 SHIREEN AGARWAL Ot I48.91 UNSPECIFIED ATRIAL FIBRILLATION 03/03/2018 SHIREEN AGARWAL Ot N18.3 CHRONIC KIDNEY DISEASE, STAGE 3 (MODERAT 03/03/2018 SHIREEN AGARWAL Ot Z79.899 OTHER CARE HOME (CURRENT) DRUG THERAPY 03/03/2018 KIERAN KHOURY, BERNY Champion Ot I25.10 ATHSCL HEART DISEASE OF [place] CORONARY 03/03/2018 KIERAN KHOURY, BERNY Champion Ot I25.10 ATHSCL HEART DISEASE OF [place] CORONARY 03/03/2018 KIERAN KHOURY, Wei BRANDON Ot [...] 1 HYDROPS OF GALLBLADDER 03/03/2018 RACHELE JEFFERSON EDGE WORKER Ot D64.89 OTHER SPECIFIED ANEMIAS 03/03/2018 RACHELE JEFFERSON EDGE WORKER Ot R06.02 SHORTNESS OF BREATH 03/03/2018 KIERAN [...] E11.22 TYPE 2 DIABETES MELLITUS W DIABETIC RESPIRATORY CLINICIAN 03/03/2018 MELIZA KHOURY, OTERO Ot I12.9 HYPERTENSIVE CHRONIC KIDNEY DISEASE W ST 03/03/2018 MELIZA KHOURY, OTERO Ot I25.10 ATHSCL HEART DISEASE OF [place] CORONARY 03/03/2018 MELIZA KHOURY OTERO Ot I48.91 UNSPECIFIED ATRIAL FIBRILLATION 03/03/2018 MELIZA KHOURY, OTERO Ot N18.3 CHRONIC KIDNEY DISEASE, STAGE 3 (MODERAT 03/03/2018 MELIZA KHOURY, OTERO Ot Z79.899 OTHER CARE HOME (CURRENT) DRUG THERAPY 03/05/2018 BRANDEN HAIDER MD Ot D50.9 IRON DEFICIENCY ANEMIA, UNSPECIFIED 03/05/2018 TAMARA HAIDER MDNER Ot E03.9 HYPOTHYROIDISM, UNSPECIFIED 03/05/2018 MELIZA KHOURY, OTERO Ot E11.22 TYPE 2 DIABETES MELLITUS W DIABETIC RESPIRATORY CLINICIAN 03/05/2018 MELIZA KHOURY, OTERO Ot I12.9 HYPERTENSIVE CHRONIC KIDNEY DISEASE W ST 03/05/2018 MELIZA KHOURY, OTERO Ot I25.10 ATHSCL HEART DISEASE OF [place] CORONARY 03/05/2018 MELIZA KHOURY, OTERO Ot I48.91 UNSPECIFIED ATRIAL FIBRILLATION 03/05/2018 MELIZA KHOURY, OTERO Ot N18.3 CHRONIC KIDNEY DISEASE, STAGE 3 (MODERAT 03/05/2018 MELIZA KHOURY, OTERO Ot Z79.899 OTHER COMPOSITION MOLDER (CURRENT) DRUG THERAPY 03/14/2018 BRANDEN HAIDER MD Ot D50.9 IRON DEFICIENCY ANEMIA, UNSPECIFIED 03/14/2018 MELIZA KHOURY, OTERO Ot E03.9 HYPOTHYROIDISM, UNSPECIFIED 03/14/2018 MELIZA KHOURY, OTERO Ot E11.22 TYPE 2 DIABETES MELLITUS W DIABETIC RESPIRATORY CLINICIAN 03/14/2018 MELIZA KHOURY, OTERO Ot I12.9 HYPERTENSIVE CHRONIC KIDNEY DISEASE W ST 03/14/2018 MELIZA KHOURY, OTERO Ot I25.10 ATHSCL HEART DISEASE OF [place] CORONARY 03/14/2018 MELIZA KHOURY, OTERO Ot I48.91 UNSPECIFIED ATRIAL FIBRILLATION 03/14/2018 MELIZA KHOURY OTERO Ot N18.3 CHRONIC KIDNEY DISEASE, STAGE 3 (MODERAT 03/14/2018 MELIZA KHOURY, BRANDEN Ot Z79.899 OTHER CARE HOME (CURRENT) DRUG THERAPY 03/16/2018 KIERAN KHOURY, Wei [...] E11.22 TYPE 2 DIABETES MELLITUS W DIABETIC RESPIRATORY CLINICIAN 03/16/2018 BRANDEN HAIDER MD Ot I12.9 HYPERTENSIVE CHRONIC KIDNEY DISEASE W ST 03/16/2018 BRANDEN HAIDER MD Ot I25.10 ATHSCL HEART DISEASE OF [place] CORONARY 03/16/2018 MELIZA KHOURY, BRANDEN Ot I48.91 UNSPECIFIED ATRIAL FIBRILLATION 03/16/2018 MELIZA KHOURY, BRANDEN Ot N18.3 CHRONIC KIDNEY DISEASE, STAGE 3 (MODERAT 03/16/2018 MELIZA KHOURY, BRANDEN Ot Z79.899 OTHER CARE HOME (CURRENT) DRUG THERAPY 03/22/2018 NWAGWU ISIRE Jasmina HATCHERY HELPER Ot M79.89 OTHER SPECIFIED SOFT TISSUE DISORDERS 03/22/2018 NWAGWANNEL ShannonDORE O HATCHERY HELPER Ot M79.89 OTHER SPECIFIED SOFT TISSUE DISORDERS 03/22/2018 CHICHI RIVAS EDGE WORKER Ot 574.20 CHOLELITHIASIS NOS 03/22/2018 CHICHI RIVAS EDGE WORKER Ot 789.1 HEPATOMEGALY 03/22/2018 LINDA KHOURY FACC, [...] IRON DEFIC ANEMIA NOS 03/22/2018 Ot 585.3 RESPIRATORY CLINICIAN LEANDRO KIDNEY DISEASE, STAGE III (MODER 03/22/2018 Ot V58.69 OTH MED,LT,CURRENT USE 03/22/2018 Ot 250.02 AWA B NALLELY YODER COMPL, TYPE II OR UNSPEC TY 03/22/2018 HARVEY KHOURY, CLAUDE S Ot 574.20 CHOLELITHIASIS NOS 03/22/2018 HARVEY KHOURY, CLAUDE S Ot 585.2 CHRONIC KIDNEY DISEASE, STAGE II (MILD) 03/22/2018 OIV KHOURY, TORI-FRANKIE Ot E03.9 HYPOTHYROIDISM, UNSPECIFIED 03/22/2018 [...] E11.22 TYPE 2 DIABETES MELLITUS W DIABETIC RESPIRATORY CLINICIAN 03/22/2018 SHIREEN AGARWAL Ot I12.9 HYPERTENSIVE CHRONIC KIDNEY DISEASE W ST 03/22/2018 SHIREEN AGARWAL Ot I25.10 ATHSCL HEART DISEASE OF [place] CORONARY 03/22/2018 SHIREEN AGARWAL Ot I48.91 UNSPECIFIED ATRIAL FIBRILLATION 03/22/2018 SHIREEN AGARWAL Solange Ot N18.3 CHRONIC KIDNEY DISEASE, STAGE 3 (MODERAT 03/22/2018 SHIREEN AGARWAL Ot Z79.899 OTHER CARE HOME (CURRENT) DRUG THERAPY 03/22/2018 BERNY ALCARAZ MD Ot I25.10 ATHSCL HEART DISEASE OF [place] CORONARY 03/22/2018 BERNY ALCARAZ MD Ot I25.10 ATHSCL HEART DISEASE OF [place] CORONARY 03/22/2018 KIERAN KHOURY, Wei BRANDON Ot [...] 1 HYDROPS OF GALLBLADDER 03/22/2018 RACHELE JEFFERSON EDGE WORKER Ot D64.89 OTHER SPECIFIED ANEMIAS 03/22/2018 RACHELE JEFFERSON EDGE WORKER Ot R06.02 SHORTNESS OF BREATH 03/22/2018 Wei ALCARAZ MD Ot R06.02 SHORTNESS OF BREATH 03/22/2018 ERMIAS MENDOZA MD Ot D50 .9 IRON DEFICIENCY ANEMIA, UNSPECIFIED 03/22/2018 KELLY KHOURY TUBA Ot R11 .2 NAUSEA WITH VOMITING, UNSPECIFIED 03/22/2018 NWAGWU, ISIDORE O HATCHERY HELPER Ot M79.89 OTHER SPECIFIED SOFT TISSUE DISORDERS 03/26/2018 NWAGWU, ISIDORE O HATCHERY HELPER Ot M79.89 OTHER SPECIFIED SOFT TISSUE DISORDERS 03/26/2018 NWAGWU, ISIDORE O HATCHERY HELPER Ot M79.89 OTHER SPECIFIED SOFT TISSUE DISORDERS [...] E11.22 TYPE 2 DIABETES MELLITUS W DIABETIC RESPIRATORY CLINICIAN 04/29/2018 BRANDEN HAIDER MD Ot I12.9 HYPERTENSIVE CHRONIC KIDNEY DISEASE W ST 04/29/2018 BRANDEN HAIDER MD Ot I25.10 ATHSCL HEART DISEASE OF [place] CORONARY 04/29/2018 BRANDEN HAIDER MD Ot I48.91 UNSPECIFIED ATRIAL FIBRILLATION 04/29/2018 BRANDEN HAIDER MD, Ot N18.3 CHRONIC KIDNEY DISEASE, STAGE 3 (MODERAT 04/29/2018 BRANDEN HAIDER MD Ot Z79.899 OTHER CARE HOME (CURRENT) DRUG THERAPY 05/03/2018 ERMIAS MENDOZA MD Ot Z53 .9 PROCEDURE AND TREATMENT NOT CARRIED OUT, 05/05/2018 RACHELE JEFFERSON EDGE WORKER Ot D64.9 ANEMIA, UNSPECIFIED 05/05/2018 RACHELE JEFFERSON EDGE WORKER Ot I87.2 VENOUS INSUFFICIENCY (CHRONIC) (PERIPHER 05/10/2018 RACHELE JEFFERSON EDGE WORKER Ot D64.9 ANEMIA, UNSPECIFIED 05/10/2018 RACHELE JEFFERSON EDGE WORKER Ot I87.2 VENOUS INSUFFICIENCY (CHRONIC) (PERIPHER 05/20/2018 BRANDEN HAIDER MD Ot D50.9 IRON DEFICIENCY ANEMIA, UNSPECIFIED 05/20/2018 BRANDEN HAIDER MD, Ot E03.9 HYPOTHYROIDISM, UNSPECIFIED 05/20/2018 BRANDEN HAIDER MD Ot E11.22 TYPE 2 DIABETES MELLITUS W DIABETIC RESPIRATORY CLINICIAN 05/20/2018 BRANDEN HAIDER MD, Ot I12.9 HYPERTENSIVE CHRONIC KIDNEY DISEASE W ST 05/20/2018 BRANDEN HAIDER MD, Ot I25.10 ATHSCL HEART DISEASE OF [place] CORONARY 05/20/2018 BRANDEN HAIDER MD, Ot I48.91 UNSPECIFIED ATRIAL FIBRILLATION 05/20/2018 BRANDEN HAIDER MD, Ot N18.3 CHRONIC KIDNEY DISEASE, STAGE 3 (MODERAT 05/20/2018 BRANDEN HAIDER MD Ot Z79.899 OTHER CARE HOME (CURRENT) DRUG THERAPY 05/24/2018 TOMASA CARMONA MD [...] MD, Ot I25.10 ATHSCL HEART DISEASE OF [place] CORONARY 05/24/2018 TOMASA CARMONA MD, Ot I25 [...] MD, Ot I25.10 ATHSCL HEART DISEASE OF [place] CORONARY 05/25/2018 TOMASA CARMONA MD, Ot I25 [...] MD, Ot I25.10 ATHSCL HEART DISEASE OF [place] CORONARY 05/25/2018 TOMASA CARMONA MD, Ot I25 .2 OLD MYOCARDIAL INFARCTION 05/25/2018 TOMASA CARMONA MD, Ot I27.20 PULMONARY HYPERTENSION, UNSPECIFIED 05/25/2018 TOMASA CARMONA MD, Ot I34 .0 NONRHEUMATIC [...] N Ot I25.10 ATHSCL HEART DISEASE OF [place] CORONARY 05/27/2018 TOMASA CARMONA MD, Ot I25 [...] MD Ot R10.13 EPIGASTRIC PAIN 05/27/2018 TOMASA CAMRONA MD Ot R78.81 BACTEREMIA 05/27/2018 TOMASA CARMONA [...] MD, Ot I25.10 ATHSCL HEART DISEASE OF [place] CORONARY 05/28/2018 MODESTO BALDERRAMA MD, Ot I25 [...] 05/28/2018 MODESTO BALDERRAMA MD, Ot Z79 .4 COMPOSITION MOLDER (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 OF INSULIN 05/28/2018 MODESTO BALDERRAMA MD, Ot Z79.82 CARE HOME (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 OF ASPIRIN 05/28/2018 MODESTO BALDERRAMA [...] Ot I25.1 0 ATHSCL HEART DISEASE OF [place] CORONARY 06/01/2018 JAMES TORRES MD, Ot I25.2 [...] MD, Ot Y92.[address] IN [facility] NON-INSTITUTIONAL RESI 06/01/2018 JAMES TORRES MD, Ot Z68.4 3 BODY MASS INDEX (BMI) 50-59.9, ADULT 06/01/2018 JAMES TORRES MD, Ot Z79.4 COMPOSITION MOLDER (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 OF INSULIN 06/01/2018 JAMES TORRES [...] Ot I25.1 0 ATHSCL HEART DISEASE OF [place] CORONARY 06/01/2018 JAMES TORRES MD Ot I27.2 [...] K75.8 1 NONALCOHOLIC STEATOHEPATITIS (TANG) 06/01/2018 JAMES TRORES MD, Ot K76.6 PORTAL HYPERTENSION 06/01/2018 JAMES [...] MD Ot Y92.[address] IN [facility] NON-INSTITUTIONAL RESI 06/01/2018 JAMES TORRES MD, Ot [...] MD Ot I25.10 ATHSCL HEART DISEASE OF [place] CORONARY 06/04/2018 MODESTO BALDERRAMA MD, Ot I25 [...] 06/04/2018 MODESTO BALDERRAMA MD Ot Z79 .4 COMPOSITION MOLDER (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 OF INSULIN 06/04/2018 MODESTO BALDERRAMA MD Ot Z79.82 COMPOSITION MOLDER (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 OF ASPIRIN 06/04/2018 MODESTO BALDERRAMA [...] E11.22 TYPE 2 DIABETES MELLITUS W DIABETIC RESPIRATORY CLINICIAN 06/14/2018 BRANDEN HAIDER MD Ot I12.9 HYPERTENSIVE CHRONIC KIDNEY DISEASE W ST 06/14/2018 BRANDEN HAIDER MD Ot I25.10 ATHSCL HEART DISEASE OF [place] CORONARY 06/14/2018 BRANDEN HAIDER MD Ot I48.91 UNSPECIFIED ATRIAL FIBRILLATION 06/14/2018 BRANDEN HAIDER MD Ot N18.3 CHRONIC KIDNEY DISEASE, STAGE 3 (MODERAT 06/14/2018 BRANDEN HAIDER MD Ot Z79.899 OTHER CARE HOME (CURRENT) DRUG THERAPY 06/18/2018 NWAGWU, ISIDORE O HATCHERY HELPER Ot M79.89 OTHER SPECIFIED SOFT TISSUE DISORDERS 06/18/2018 NWAGWU, ISIDORE O HATCHERY HELPER Ot M79.89 OTHER SPECIFIED SOFT TISSUE DISORDERS 06/18/2018 KIERAN KHOURY, Wei BRANDON Ot I47 .1 SUPRAVENTRICULAR TACHYCARDIA 06/18/2018 KIERAN KHOURY, Wei BRANODN Ot I48.91 UNSPECIFIED ATRIAL FIBRILLATION 06/18/2018 SHIREEN AGARWAL Ot D50.9 IRON DEFICIENCY ANEMIA, UNSPECIFIED 06/18/2018 SHIREEN AGARWAL Ot E03.9 HYPOTHYROIDISM, UNSPECIFIED 06/18/2018 SHIREEN AGARWAL Ot E11.22 TYPE 2 DIABETES MELLITUS W DIABETIC RESPIRATORY CLINICIAN 06/18/2018 SHIREEN AGARWAL Ot I12.9 HYPERTENSIVE CHRONIC KIDNEY DISEASE W ST 06/18/2018 SHIREEN AGARWAL Ot I25.10 ATHSCL HEART DISEASE OF [place] CORONARY 06/18/2018 SHIREEN AGARWAL Ot I48.91 UNSPECIFIED ATRIAL FIBRILLATION 06/18/2018 SHIREEN AGARWAL Ot N18.3 CHRONIC KIDNEY DISEASE, STAGE 3 (MODERAT 06/18/2018 SHIREEN AGARWAL Solange Ot Z79.899 OTHER COMPOSITION MOLDER (CURRENT) DRUG THERAPY 06/20/2018 MELIZA KHOURY, BRANDEN Ot D50.9 IRON DEFICIENCY ANEMIA, UNSPECIFIED 06/20/2018 BRANDEN HAIDER MD Ot E03.9 HYPOTHYROIDISM, UNSPECIFIED 06/20/2018 MELIZA KHOURY, BRANDEN Ot E11.22 TYPE 2 DIABETES MELLITUS W DIABETIC RESPIRATORY CLINICIAN 06/20/2018 BRANDEN HAIDER MD Ot I12.9 HYPERTENSIVE CHRONIC KIDNEY DISEASE W ST 06/20/2018 BRANDEN HAIDER MD Ot I25.10 ATHSCL HEART DISEASE OF [place] CORONARY 06/20/2018 BRANDEN HAIDER MD Ot I48.91 UNSPECIFIED ATRIAL FIBRILLATION 06/20/2018 BRANDEN HAIDER MD Ot N18.3 CHRONIC KIDNEY DISEASE, STAGE 3 (MODERAT 06/20/2018 MELIZA KHOURY, BRANDEN Ot Z79.899 OTHER CARE HOME (CURRENT) DRUG THERAPY 07/01/2018 RADHA DO MICHELLE [...] MICHELLE Ot I25.10 ATHSCL HEART DISEASE OF [place] CORONARY 07/01/2018 RADHA DO MICHELLE Ot I25.2 OLD MYOCARDIAL INFARCTION 07/01/2018 RADHA WOOD MICHELLE Ot I48.0 PAROXYSMAL ATRIAL FIBRILLATION 07/01/2018 RADHA WOOD MICHELLE Ot I50.32 CHRONIC DIASTOLIC (CONGESTIVE) HEART KATY 07/01/2018 MICHELLE GARCIA DO Ot J44.9 CHRONIC OBSTRUCTIVE PULMONARY DISEASE, U 07/01/2018 MICHELLE GARCIA DO Ot K21.9 GASTRO-ESOPHAGEAL REFLUX DISEASE WITHOUT 07/01/2018 MICHELLE GARCIA DO Ot K22.70 ZELAAY'S ESOPHAGUS WITHOUT DYSPLASIA 07/01/2018 RADHA WOOD MICHELLE Ot K31.81 1 ANGIODYSPLASIA OF STOMACH AND DUODENUM W 07/01/2018 MICHELLE GARCIA DO Ot K74.60 UNSPECIFIED CIRRHOSIS OF LIVER 07/01/2018 MICHELLE GARCIA DO Ot L40.9 PSORIASIS, UNSPECIFIED 07/01/2018 RADHA WOOD MICHELLE Ot N18.9 CHRONIC KIDNEY DISEASE, UNSPECIFIED 07/01/2018 MICHELLE GARCIA DO Ot R09.02 HYPOXEMIA 07/01/2018 MICHLELE GARCIA DO Ot Z68.42 BODY MASS INDEX (BMI) 45.0-49.9, ADULT 07/01/2018 MICHELLE GARCIA DO Ot Z79.4 COMPOSITION MOLDER (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 OF INSULIN 07/01/2018 MICHELLE GARCIA [...] GARCIA DO Ot E03.9 HYPOTHYROIDISM, UNSPECIFIED 07/01/2018 ARDHA WOOD MICHELLE Ot E11.65 TYPE 2 DIABETES [...] DO Ot I25.10 ATHSCL HEART DISEASE OF [place] CORONARY 07/01/2018 MICHELLE GARCIA DO Ot I25.11 9 ATHSCL HEART DISEASE OF [place] COR ART W 07/01/2018 MICHELLE GARCIA DO [...] ADULT 07/01/2018 RADHA WOOD MICHELLE Ot Z79.4 COMPOSITION MOLDER (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 OF INSULIN 07/01/2018 EMILIANO GARCIA [...] 2 TYPE 2 DIABETES MELLITUS W DIABETIC RESPIRATORY CLINICIAN 07/09/2018 BRIAN KHOURY, JAMES Champion Ot K74.6 [...] E11.22 TYPE 2 DIABETES MELLITUS W DIABETIC RESPIRATORY CLINICIAN 07/13/2018 SHIREEN AGARWAL Ot I12.9 HYPERTENSIVE CHRONIC KIDNEY DISEASE W ST 07/13/2018 SHIREEN AGARWAL Ot I25.10 ATHSCL HEART DISEASE OF [place] CORONARY 07/13/2018 ANY, BOBAN N Ot I48.91 UNSPECIFIED ATRIAL FIBRILLATION 07/13/2018 ANY, BOBAN N Ot N18.3 CHRONIC KIDNEY DISEASE, STAGE 3 (MODERAT 07/13/2018 ANY, BOBAN N Ot Z79.899 OTHER COMPOSITION MOLDER (CURRENT) DRUG THERAPY 07/13/2018 ANY, BOBAN N [...] 2 TYPE 2 DIABETES MELLITUS W DIABETIC RESPIRATORY CLINICIAN 07/13/2018 JAMES TORRES MD R Ot K74.6 0 UNSPECIFIED CIRRHOSIS OF LIVER 07/13/2018 JAMES TORRES MD R Ot N18.9 CHRONIC KIDNEY DISEASE, UNSPECIFIED 07/15/2018 NAY, BOBAN N Ot D50.9 IRON DEFICIENCY ANEMIA, UNSPECIFIED 07/15/2018 ANY, BOBAN N Ot E03.9 HYPOTHYROIDISM, UNSPECIFIED 07/15/2018 ANY, BOBAN N Ot E11.22 TYPE 2 DIABETES MELLITUS W DIABETIC RESPIRATORY CLINICIAN 07/15/2018 ANY, BOBAN N Ot I12.9 HYPERTENSIVE CHRONIC KIDNEY DISEASE W ST 07/15/2018 ANY, BOBAN N Ot I25.10 ATHSCL HEART DISEASE OF [place] CORONARY 07/15/2018 ANY, BOBAN N Ot I48.91 UNSPECIFIED ATRIAL FIBRILLATION 07/15/2018 ANY, BOBAN N Ot N18.3 CHRONIC KIDNEY DISEASE, STAGE 3 (MODERAT 07/15/2018 ANY, BOBAN N Ot Z79.899 OTHER COMPOSITION MOLDER (CURRENT) DRUG THERAPY 07/28/2018 JAMES TORRES MD R Ot D64.9 ANEMIA, UNSPECIFIED 07/28/2018 JAMES TORRES MD R Ot E11.2 2 TYPE 2 DIABETES MELLITUS W DIABETIC RESPIRATORY CLINICIAN 07/28/2018 BRIAN KHOURY, JAMES R Ot K74.6 0 UNSPECIFIED CIRRHOSIS OF LIVER 07/28/2018 JAMES TORRES MD Ot N18.9 CHRONIC KIDNEY DISEASE, UNSPECIFIED 08/06/2018 ANYSHIREEN N Ot D50.0 IRON DEFICIENCY ANEMIA SECONDARY TO BLOO 08/06/2018 ANYSHIREEN BALDWIN N Ot E03.9 HYPOTHYROIDISM, UNSPECIFIED 08/06/2018 ANY, SHIREEN N Ot E11.22 TYPE 2 DIABETES MELLITUS W DIABETIC RESPIRATORY CLINICIAN 08/06/2018 ANYSHIREEN BALDWIN N Ot E53.8 DEFICIENCY OF OTHER SPECIFIED B GROUP 08/06/2018 ANYSHIREEN N Ot I12.9 HYPERTENSIVE CHRONIC KIDNEY DISEASE W ST 08/06/2018 ANYSHIREEN N Ot I25.10 ATHSCL HEART DISEASE OF [place] CORONARY 08/06/2018 ANYSHIREEN BALDWIN N Ot I48.91 UNSPECIFIED ATRIAL FIBRILLATION 08/06/2018 ANYSHIREEN BALDWNI N Ot K31.819 ANGIODYSPLASIA OF STOMACH AND DUODENUM W 08/06/2018 SHIREEN AGARWAL N Ot K74.60 UNSPECIFIED CIRRHOSIS OF LIVER 08/06/2018 SHIREEN AGARWAL Ot N18.3 CHRONIC KIDNEY DISEASE, STAGE 3 (MODERAT 08/06/2018 ANYSHIREEN BALDWIN N Ot Z79.899 OTHER COMPOSITION MOLDER (CURRENT) DRUG THERAPY 08/17/2018 MACIEL WELCH APRN Ot M79.89 OTHER SPECIFIED SOFT TISSUE DISORDERS 08/17/2018 SHIREEN AGARWAL N Ot D50.0 IRON DEFICIENCY ANEMIA SECONDARY TO BLOO 08/17/2018 SHIREEN AGARWAL N Ot E03.9 HYPOTHYROIDISM, UNSPECIFIED 08/17/2018 ANYSHIREEN BALDWIN N Ot E11.22 TYPE 2 DIABETES MELLITUS W DIABETIC RESPIRATORY CLINICIAN 08/17/2018 SHIREEN AGARWAL N Ot E53.8 DEFICIENCY OF OTHER SPECIFIED B GROUP 08/17/2018 ANYSHIREEN BALDWIN N Ot I12.9 HYPERTENSIVE CHRONIC KIDNEY DISEASE W ST 08/17/2018 SHIREEN AGARWAL N Ot I25.10 ATHSCL HEART DISEASE OF [place] CORONARY 08/17/2018 ANYSHIREEN BALDWIN N Ot I48.91 UNSPECIFIED ATRIAL FIBRILLATION 08/17/2018 ANYSHIREEN BALDWIN N Ot K31.819 ANGIODYSPLASIA OF STOMACH AND DUODENUM W 08/17/2018 SHIREEN AGARWAL N Ot K74.60 UNSPECIFIED CIRRHOSIS OF LIVER 08/17/2018 SHIREEN AGARWAL Ot N18.3 CHRONIC KIDNEY DISEASE, STAGE 3 (MODERAT 08/17/2018 SHIREEN AGARWAL Ot Z79.899 OTHER COMPOSITION MOLDER (CURRENT) DRUG THERAPY 08/17/2018 SHIREEN AGARWAL Ot [...] 2 TYPE 2 DIABETES MELLITUS W DIABETIC RESPIRATORY CLINICIAN 08/17/2018 BRIAN KHOURY, JAMES R Ot K74.6 [...] E11.22 TYPE 2 DIABETES MELLITUS W DIABETIC RESPIRATORY CLINICIAN 09/27/2018 KATERYNA KHOURY, MAUREEN Rashid Ot E78.00 PURE HYPERCHOLESTEROLEMIA, UNSPECIFIED 09/27/2018 MAUREEN AVENDAÑO MD, Ot E87.70 FLUID OVERLOAD, UNSPECIFIED 09/27/2018 MAUREEN AVENDAÑO MD, Ot F41.9 ANXIETY DISORDER, UNSPECIFIED 09/27/2018 MAUREEN AVENDAÑO MD, Ot G47.30 SLEEP APNEA, UNSPECIFIED 09/27/2018 MAUREEN AVENDAÑO MD, Ot 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 09/27/2018 MAUREEN AVENDAÑO MD, Ot I25.10 ATHSCL HEART DISEASE OF [place] CORONARY 09/27/2018 MAUREEN AVENDAÑO MD, Ot I25.2 OLD MYOCARDIAL INFARCTION 09/27/2018 MAUREEN AVENDAÑO MD, Ot I48.91 UNSPECIFIED ATRIAL FIBRILLATION 09/27/2018 MAUREEN AVENDAÑO MD, Ot I50.9 HEART FAILURE, UNSPECIFIED 09/27/2018 MAUREEN AVENDAÑO MD, Ot K21.9 GASTRO-ESOPHAGEAL REFLUX DISEASE WITHOUT 09/27/2018 MAUREEN AVENDAÑO MD, Ot N18.9 CHRONIC KIDNEY DISEASE, UNSPECIFIED 09/27/2018 MAUREEN AVENDAÑO MD, Ot R06.02 SHORTNESS OF BREATH 09/27/2018 MAUREEN AVENDAÑO MD, Ot Z79.4 CARE HOME (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 OF INSULIN 09/27/2018 MAUREEN AVENDAÑO [...] E11.22 TYPE 2 DIABETES MELLITUS W DIABETIC RESPIRATORY CLINICIAN 09/29/2018 MAUREEN AVENDAÑO MD, Ot E78.00 PURE HYPERCHOLESTEROLEMIA, UNSPECIFIED 09/29/2018 MAUREEN AVENDAÑO MD Ot E87.70 FLUID OVERLOAD, UNSPECIFIED 09/29/2018 MAUREEN AVENDAÑO MD Ot F41.9 ANXIETY DISORDER, UNSPECIFIED 09/29/2018 MAUREEN AVENDAÑO MD, Ot G47.30 SLEEP APNEA, UNSPECIFIED 09/29/2018 MAUREEN AVENDAÑO MD Ot 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 09/29/2018 MAUREEN AVENDAÑO MD, Ot I25.10 ATHSCL HEART DISEASE OF [place] CORONARY 09/29/2018 MAUREEN AVENDAÑO MD, Ot I25.2 OLD MYOCARDIAL INFARCTION 09/29/2018 MAUREEN AVENDAÑO MD Ot I48.91 UNSPECIFIED ATRIAL FIBRILLATION 09/29/2018 MAUREEN AVENDAÑO MD, Ot I50.9 HEART FAILURE, UNSPECIFIED 09/29/2018 MAUREEN AVENDAÑO MD, Ot K21.9 GASTRO-ESOPHAGEAL REFLUX DISEASE WITHOUT 09/29/2018 MAUREEN AVENDAÑO MD, Ot N18.9 CHRONIC KIDNEY DISEASE, UNSPECIFIED 09/29/2018 MAUREEN AVENDAÑO MD Ot R06.02 SHORTNESS OF BREATH 09/29/2018 MAUREEN AVENDAÑO MD Ot Z79.4 COMPOSITION MOLDER (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 OF INSULIN 09/29/2018 MAUREEN AVENDAÑO [...] E11.22 TYPE 2 DIABETES MELLITUS W DIABETIC RESPIRATORY CLINICIAN 10/07/2018 SHIREEN AGARWAL Ot E53.8 DEFICIENCY OF OTHER SPECIFIED B GROUP 10/07/2018 SHIREEN AGARWAL Ot I12.9 HYPERTENSIVE CHRONIC KIDNEY DISEASE W ST 10/07/2018 SHIREEN AGARWAL Ot I25.10 ATHSCL HEART DISEASE OF [place] CORONARY 10/07/2018 SHIREEN AGARWAL Ot I48.91 UNSPECIFIED ATRIAL FIBRILLATION 10/07/2018 SHIREEN AGARWAL Ot K31.819 ANGIODYSPLASIA OF STOMACH AND DUODENUM W 10/07/2018 ANYSHIREEN Ot K74.60 UNSPECIFIED CIRRHOSIS OF LIVER 10/07/2018 ANYSHIREEN Ot N18.3 CHRONIC KIDNEY DISEASE, STAGE 3 (MODERAT 10/07/2018 ANYSHIREEN Ot Z79.899 OTHER COMPOSITION MOLDER (CURRENT) DRUG THERAPY 10/07/2018 NWRUPINDER, MACIEL Jasmina [...] 2 TYPE 2 DIABETES MELLITUS W DIABETIC RESPIRATORY CLINICIAN 10/07/2018 BRIAN KHOURY, JAMES Champion Ot K74.6 0 UNSPECIFIED CIRRHOSIS OF LIVER 10/07/2018 BRIAN KHOURY, JAMES Champion Ot N18.9 CHRONIC KIDNEY DISEASE, UNSPECIFIED 10/07/2018 BRIAN KHOURY, JAMES Cahmpion Ot E03.9 HYPOTHYROIDISM, UNSPECIFIED 10/07/2018 KRUNAL KHOURY [...] SHIREEN AGARWAL Ot E03.9 HYPOTHYROIDISM, UNSPECIFIED 10/07/2018 SHRIEEN AGARWAL N Ot E11.22 TYPE 2 DIABETES MELLITUS W DIABETIC RESPIRATORY CLINICIAN 10/07/2018 SHIREEN AGARWAL Ot E53.8 DEFICIENCY OF OTHER SPECIFIED B GROUP 10/07/2018 ANY SHIREEN N Ot I12.9 HYPERTENSIVE CHRONIC KIDNEY DISEASE W ST 10/07/2018 ANYSHIREEN N Ot I25.10 ATHSCL HEART DISEASE OF [place] CORONARY 10/07/2018 ANYSHIREEN N Ot I48.91 UNSPECIFIED ATRIAL FIBRILLATION 10/07/2018 ANY SHIREEN N Ot K31.819 ANGIODYSPLASIA OF STOMACH AND DUODENUM W 10/07/2018 ANYSHIREEN N Ot K74.60 UNSPECIFIED CIRRHOSIS OF LIVER 10/07/2018 ANYSHIREEN N Ot N18.3 CHRONIC KIDNEY DISEASE, STAGE 3 (MODERAT 10/07/2018 ANYSHIREEN BALDWIN N Ot Z79.899 OTHER CARE HOME (CURRENT) DRUG THERAPY 10/07/2018 SHIREEN AGARWAL N Ot D50.0 IRON DEFICIENCY ANEMIA SECONDARY TO BLOO 10/07/2018 SHIREEN AGARWAL N Ot E03.9 HYPOTHYROIDISM, UNSPECIFIED 10/07/2018 ANYSHIREEN N Ot E11.22 TYPE 2 DIABETES MELLITUS W DIABETIC RESPIRATORY CLINICIAN 10/07/2018 ANYSHIREEN N Ot E53.8 DEFICIENCY OF OTHER SPECIFIED B GROUP 10/07/2018 ANYSHIREEN N Ot I12.9 HYPERTENSIVE CHRONIC KIDNEY DISEASE W ST 10/07/2018 SHIREEN AGARWAL N Ot I25.10 ATHSCL HEART DISEASE OF [place] CORONARY 10/07/2018 ANYSHIREEN N Ot I48.91 UNSPECIFIED ATRIAL FIBRILLATION 10/07/2018 ANYSHIREEN N Ot K31.819 ANGIODYSPLASIA OF STOMACH AND DUODENUM W 10/07/2018 SHIREEN AGARWAL N Ot K74.60 UNSPECIFIED CIRRHOSIS OF LIVER 10/07/2018 ANYSHIREEN N Ot N18.3 CHRONIC KIDNEY DISEASE, STAGE 3 (MODERAT 10/07/2018 ANYSHIREEN BALDWIN N Ot Z79.899 OTHER COMPOSITION MOLDER (CURRENT) DRUG THERAPY 10/07/2018 ANYSHIREEN N Ot D50.0 IRON DEFICIENCY ANEMIA SECONDARY TO BLOO 10/07/2018 SHIREEN AGARWAL N Ot E03.9 HYPOTHYROIDISM, UNSPECIFIED 10/07/2018 ANY, JJAN N Ot E11.22 TYPE 2 DIABETES MELLITUS W DIABETIC RESPIRATORY CLINICIAN 10/07/2018 ANYSHIREEN N Ot E53.8 DEFICIENCY OF OTHER SPECIFIED B GROUP 10/07/2018 ANY SHIREEN N Ot I12.9 HYPERTENSIVE CHRONIC KIDNEY DISEASE W ST 10/07/2018 ANYSHIREEN N Ot I25.10 ATHSCL HEART DISEASE OF [place] CORONARY 10/07/2018 ANYSHIREEN N Ot I48.91 UNSPECIFIED ATRIAL FIBRILLATION 10/07/2018 ANYSHIREEN N Ot K31.819 ANGIODYSPLASIA OF STOMACH AND DUODENUM W 10/07/2018 SHIREEN AGARWAL N Ot K74.60 UNSPECIFIED CIRRHOSIS OF LIVER 10/07/2018 ANYSHIREEN N Ot N18.3 CHRONIC KIDNEY DISEASE, STAGE 3 (MODERAT 10/07/2018 ANYSHIREEN BALDWIN N Ot Z79.899 OTHER COMPOSITION MOLDER (CURRENT) DRUG THERAPY 10/07/2018 ANYSHIREEN N Ot D50.0 IRON DEFICIENCY ANEMIA SECONDARY TO BLOO 10/07/2018 SHIREEN AGARWAL N Ot E03.9 HYPOTHYROIDISM, UNSPECIFIED 10/07/2018 ANYSHIREEN N Ot E11.22 TYPE 2 DIABETES MELLITUS W DIABETIC RESPIRATORY CLINICIAN 10/07/2018 ANYSHIREEN N Ot E53.8 DEFICIENCY OF OTHER SPECIFIED B GROUP 10/07/2018 ANYSHIREEN N Ot I12.9 HYPERTENSIVE CHRONIC KIDNEY DISEASE W ST 10/07/2018 ANYSHIREEN N Ot I25.10 ATHSCL HEART DISEASE OF [place] CORONARY 10/07/2018 ANYSHIREEN N Ot I48.91 UNSPECIFIED ATRIAL FIBRILLATION 10/07/2018 SHIREEN AGARWAL N Ot K31.819 ANGIODYSPLASIA OF STOMACH AND DUODENUM W 10/07/2018 ANYSHIREEN N Ot K74.60 UNSPECIFIED CIRRHOSIS OF LIVER 10/07/2018 ANYSHIREEN N Ot N18.3 CHRONIC KIDNEY DISEASE, STAGE 3 (MODERAT 10/07/2018 ANYSHIREEN N Ot Z79.899 OTHER COMPOSITION MOLDER (CURRENT) DRUG THERAPY 10/07/2018 ANYSHIREEN N Ot D50.0 IRON DEFICIENCY ANEMIA SECONDARY TO BLOO 10/07/2018 ANYSHIREEN N Ot E03.9 HYPOTHYROIDISM, UNSPECIFIED 10/07/2018 ANYSHIREEN N Ot E11.22 TYPE 2 DIABETES MELLITUS W DIABETIC RESPIRATORY CLINICIAN 10/07/2018 SHIREEN AGARWAL N Ot E53.8 DEFICIENCY OF OTHER SPECIFIED B GROUP 10/07/2018 SHIREEN AGARWAL N Ot I12.9 HYPERTENSIVE CHRONIC KIDNEY DISEASE W ST 10/07/2018 SHIREEN AGARWAL N Ot I25.10 ATHSCL HEART DISEASE OF [place] CORONARY 10/07/2018 SHIREEN AGARWAL N Ot I48.91 UNSPECIFIED ATRIAL FIBRILLATION 10/07/2018 SHIREEN AGARWAL N Ot K31.819 ANGIODYSPLASIA OF STOMACH AND DUODENUM W 10/07/2018 SHIREEN AGARWAL N Ot K74.60 UNSPECIFIED CIRRHOSIS OF LIVER 10/07/2018 SHIREEN AGARWAL N Ot N18.3 CHRONIC KIDNEY DISEASE, STAGE 3 (MODERAT 10/07/2018 SHIREEN AGARWAL N Ot Z79.899 OTHER CARE HOME (CURRENT) DRUG THERAPY 10/08/2018 KRUNAL KHOURY PHD, LULA Clement Ot E03.9 HYPOTHYROIDISM, UNSPECIFIED 10/08/2018 KRUNAL KHOURY PHD, LULA Clement Ot I50.32 CHRONIC DIASTOLIC (CONGESTIVE) HEART KATY 10/08/2018 SHIREEN AGARWAL Ot D50.0 IRON DEFICIENCY ANEMIA SECONDARY TO BLOO 10/08/2018 SHIREEN AGARWAL N Ot E03.9 HYPOTHYROIDISM, UNSPECIFIED 10/08/2018 SHIREEN AGARWAL N Ot E11.22 TYPE 2 DIABETES MELLITUS W DIABETIC RESPIRATORY CLINICIAN 10/08/2018 SHIREEN AGARWAL Ot E53.8 DEFICIENCY OF OTHER SPECIFIED B GROUP 10/08/2018 SHIREEN AGARWAL N Ot I12.9 HYPERTENSIVE CHRONIC KIDNEY DISEASE W ST 10/08/2018 SHIREEN AGARWAL Ot I25.10 ATHSCL HEART DISEASE OF [place] CORONARY 10/08/2018 SHIREEN AGARWAL N Ot I48.91 UNSPECIFIED ATRIAL FIBRILLATION 10/08/2018 SHIREEN AGARWAL N Ot K31.819 ANGIODYSPLASIA OF STOMACH AND DUODENUM W 10/08/2018 SHIREEN AGARWAL N Ot K74.60 UNSPECIFIED CIRRHOSIS OF LIVER 10/08/2018 SHIREEN AGARWAL N Ot N18.3 CHRONIC KIDNEY DISEASE, STAGE 3 (MODERAT 10/08/2018 SHIREEN AGARWAL N Ot Z79.899 OTHER CARE HOME (CURRENT) DRUG THERAPY 10/08/2018 SHIREEN AGARWAL N Ot D50.0 IRON DEFICIENCY ANEMIA SECONDARY TO BLOO 10/08/2018 ANY, SHIREEN N Ot E03.9 HYPOTHYROIDISM, UNSPECIFIED 10/08/2018 ANY, JJAN N Ot E11.22 TYPE 2 DIABETES MELLITUS W DIABETIC RESPIRATORY CLINICIAN 10/08/2018 ANY BOBONDINA N Ot E53.8 DEFICIENCY OF OTHER SPECIFIED B GROUP 10/08/2018 ANY BOBAN N Ot I12.9 HYPERTENSIVE CHRONIC KIDNEY DISEASE W ST 10/08/2018 ANY SHIREEN N Ot I25.10 ATHSCL HEART DISEASE OF [place] CORONARY 10/08/2018 ANY, BOBAN N Ot I48.91 UNSPECIFIED ATRIAL FIBRILLATION 10/08/2018 ANY, BOBAN N Ot K31.819 ANGIODYSPLASIA OF STOMACH AND DUODENUM W 10/08/2018 ANY, BOBONDINA N Ot K74.60 UNSPECIFIED CIRRHOSIS OF LIVER 10/08/2018 ANY, BOBAN N Ot N18.3 CHRONIC KIDNEY DISEASE, STAGE 3 (MODERAT 10/08/2018 ANY BOBONDINA N Ot Z79.899 OTHER CARE HOME (CURRENT) DRUG THERAPY 10/08/2018 ANYSHIREEN N Ot D50.0 IRON DEFICIENCY ANEMIA SECONDARY TO BLOO 10/08/2018 ANY, BOBONDINA N Ot E03.9 HYPOTHYROIDISM, UNSPECIFIED 10/08/2018 ANY, BOBAN N Ot E11.22 TYPE 2 DIABETES MELLITUS W DIABETIC RESPIRATORY CLINICIAN 10/08/2018 ANY BOBONDINA N Ot E53.8 DEFICIENCY OF OTHER SPECIFIED B GROUP 10/08/2018 ANY BOBONDINA N Ot I12.9 HYPERTENSIVE CHRONIC KIDNEY DISEASE W ST 10/08/2018 ANY JJONDINA N Ot I25.10 ATHSCL HEART DISEASE OF [place] CORONARY 10/08/2018 ANY BOBONDINA N Ot I48.91 UNSPECIFIED ATRIAL FIBRILLATION 10/08/2018 ANY, BOBAN N Ot K31.819 ANGIODYSPLASIA OF STOMACH AND DUODENUM W 10/08/2018 ANY BOBONDINA N Ot K74.60 UNSPECIFIED CIRRHOSIS OF LIVER 10/08/2018 ANY, BOBAN N Ot N18.3 CHRONIC KIDNEY DISEASE, STAGE 3 (MODERAT 10/08/2018 ANY, BOBAN N Ot Z79.899 OTHER COMPOSITION MOLDER (CURRENT) DRUG THERAPY 10/14/2018 KRUNAL KHOURY PHD, LULA S Ot K31.819 ANGIODYSPLASIA OF STOMACH AND DUODENUM W 10/22/2018 SHIREEN AGARWAL Solange Ot D50.0 IRON DEFICIENCY ANEMIA SECONDARY TO BLOO 10/22/2018 SHIREEN AGARWAL Solange Ot E03.9 HYPOTHYROIDISM, UNSPECIFIED 10/22/2018 SHIREEN AGARWAL Solange Ot E11.22 TYPE 2 DIABETES MELLITUS W DIABETIC RESPIRATORY CLINICIAN 10/22/2018 SHIREEN AGARWAL Solange Ot E53.8 DEFICIENCY OF OTHER SPECIFIED B GROUP 10/22/2018 SHIREEN AGARWAL Solange Ot I12.9 HYPERTENSIVE CHRONIC KIDNEY DISEASE W ST 10/22/2018 SHIREEN AGARWAL Solange Ot I25.10 ATHSCL HEART DISEASE OF [place] CORONARY 10/22/2018 SHIREEN AGARWAL Solange Ot I48.91 UNSPECIFIED ATRIAL FIBRILLATION 10/22/2018 SHIREEN AGARWAL Solange Ot K31.819 ANGIODYSPLASIA OF STOMACH AND DUODENUM W 10/22/2018 SHIREEN AGARWAL Solange Ot K74.60 UNSPECIFIED CIRRHOSIS OF LIVER 10/22/2018 SHIREEN AGARWAL Solange Ot N18.3 CHRONIC KIDNEY DISEASE, STAGE 3 (MODERAT 10/22/2018 SHIREEN AGARWAL Solange Ot Z79.899 OTHER COMPOSITION MOLDER (CURRENT) DRUG THERAPY 10/25/2018 KRUNAL KHOURY PHD, LULA Clement Ot D50.0 IRON DEFICIENCY ANEMIA SECONDARY TO BLOO 10/25/2018 KRUNAL KHOURY PHD, LULA Clement Ot E03.9 HYPOTHYROIDISM, UNSPECIFIED 10/25/2018 KRUNAL KHOURY PHD, LULA Clement Ot E11.22 TYPE 2 DIABETES MELLITUS W DIABETIC RESPIRATORY CLINICIAN 10/25/2018 KRUNAL KHOURY PHD, LULA Clement Ot E53.8 DEFICIENCY OF OTHER SPECIFIED B GROUP 10/25/2018 KRUNAL KHOURY PHD, LULA Clement Ot I12.9 HYPERTENSIVE CHRONIC KIDNEY DISEASE W ST 10/25/2018 KRUNAL KHOURY PHD, LULA Clement Ot I25.10 ATHSCL HEART DISEASE OF [place] CORONARY 10/25/2018 KRUNAL KHOURY PHD, LULA Clement Ot I48.91 UNSPECIFIED ATRIAL FIBRILLATION 10/25/2018 KRUNAL KHOURY PHD, LULA Clement Ot K31.819 ANGIODYSPLASIA OF STOMACH AND DUODENUM W 10/25/2018 KRUNAL KHOURY PHD, LULA Clement Ot K74.60 UNSPECIFIED CIRRHOSIS OF LIVER 10/25/2018 KRUNAL KHOURY PHD, LULA Clement Ot N18.3 CHRONIC KIDNEY DISEASE, STAGE 3 (MODERAT 10/25/2018 KRUNAL KHOURY PHD, LULA Clement Ot Z79.899 OTHER COMPOSITION MOLDER (CURRENT) DRUG THERAPY 11/02/2018 KRUNAL KHOURY PHD, [...] DO Ot I25.10 ATHSCL HEART DISEASE OF [place] CORONARY 11/06/2018 MICHELLE GARCIA DO Ot I25.2 [...] LOSS 11/06/2018 MICHELLE GARCIA DO Ot Z79.4 COMPOSITION MOLDER (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 OF INSULIN 11/06/2018 MICHELLE GARCIA [...] I21.A1 MYOCARDIAL INFARCTION TYPE 2 11/06/2018 MICHELLE GACRIA DO Ot I25.10 ATHSCL HEART DISEASE OF [place] CORONARY 11/06/2018 MICHELLE GARCIA DO Ot I25.2 [...] SHOCK 11/06/2018 EMILIANO GARCIA DOI Ot Z79.4 COMPOSITION MOLDER (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 OF INSULIN 11/06/2018 MICHELLE GARCIA [...] E11.22 TYPE 2 DIABETES MELLITUS W DIABETIC RESPIRATORY CLINICIAN 11/10/2018 SHIREEN AGARWAL N Ot E53.8 DEFICIENCY OF OTHER SPECIFIED B GROUP 11/10/2018 SHIREEN AGARWAL N Ot I12.9 HYPERTENSIVE CHRONIC KIDNEY DISEASE W ST 11/10/2018 SHIREEN AGARWAL N Ot I25.10 ATHSCL HEART DISEASE OF [place] CORONARY 11/10/2018 SHIREEN AGARWAL N Ot I48.91 UNSPECIFIED ATRIAL FIBRILLATION 11/10/2018 SHIREEN AGARWAL N Ot K31.819 ANGIODYSPLASIA OF STOMACH AND DUODENUM W 11/10/2018 JJ AGARWALONDINA N Ot K74.60 UNSPECIFIED CIRRHOSIS OF LIVER 11/10/2018 SHIREEN AGARWAL N Ot N18.3 CHRONIC KIDNEY DISEASE, STAGE 3 (MODERAT 11/10/2018 ANY SHIREEN N Ot Z79.899 OTHER COMPOSITION MOLDER (CURRENT) DRUG THERAPY 11/16/2018 ANYSHIREEN N Ot D50.0 IRON DEFICIENCY ANEMIA SECONDARY TO BLOO 11/16/2018 SHIREEN AGARWAL N Ot E03.9 HYPOTHYROIDISM, UNSPECIFIED 11/16/2018 SHIREEN AGARWAL N Ot E11.22 TYPE 2 DIABETES MELLITUS W DIABETIC RESPIRATORY CLINICIAN 11/16/2018 SHIREEN AGARWAL N Ot E53.8 DEFICIENCY OF OTHER SPECIFIED B GROUP 11/16/2018 SHIREEN AGARWAL N Ot I12.9 HYPERTENSIVE CHRONIC KIDNEY DISEASE W ST 11/16/2018 SHIREEN AGARWAL N Ot I25.10 ATHSCL HEART DISEASE OF [place] CORONARY 11/16/2018 ANY JJONDINA N Ot I48.91 UNSPECIFIED ATRIAL FIBRILLATION 11/16/2018 SHIREEN AGARWAL N Ot K31.819 ANGIODYSPLASIA OF STOMACH AND DUODENUM W 11/16/2018 ANYSHIREEN N Ot K74.60 UNSPECIFIED CIRRHOSIS OF LIVER 11/16/2018 ANYSHIREEN N Ot N18.3 CHRONIC KIDNEY DISEASE, STAGE 3 (MODERAT 11/16/2018 ANYSHIREEN N Ot Z79.899 OTHER COMPOSITION MOLDER (CURRENT) DRUG THERAPY 11/24/2018 KRUNAL KHOURY PHD, LULA Clement Ot D50.0 IRON DEFICIENCY ANEMIA SECONDARY TO BLOO 11/24/2018 KRUNAL KHOURY PHD, LULA Clement Ot E03.9 HYPOTHYROIDISM, UNSPECIFIED 11/24/2018 KRUNAL KHOURY PHD, LULA Clement Ot E11.22 TYPE 2 DIABETES MELLITUS W DIABETIC RESPIRATORY CLINICIAN 11/24/2018 KRUNAL KHOURY PHD, LULA Clement Ot E53.8 DEFICIENCY OF OTHER SPECIFIED B GROUP 11/24/2018 KRUNAL KHOURY PHD, LULA Clement Ot I12.9 HYPERTENSIVE CHRONIC KIDNEY DISEASE W ST 11/24/2018 KRUNAL KHOURY PHD, LULA Clement Ot I25.10 ATHSCL HEART DISEASE OF [place] CORONARY 11/24/2018 KRUNAL KHOURY PHD, LULA Clement Ot I48.91 UNSPECIFIED ATRIAL FIBRILLATION 11/24/2018 KRUNAL KHOURY PHD, LULA Clement Ot K31.819 ANGIODYSPLASIA OF STOMACH AND DUODENUM W 11/24/2018 KRUNAL KHOURY PHD, LULA Clement Ot K74.60 UNSPECIFIED CIRRHOSIS OF LIVER 11/24/2018 KRUNAL KHOURY PHD, LULA Clement Ot N18.3 CHRONIC KIDNEY DISEASE, STAGE 3 (MODERAT 11/24/2018 KRUNAL KHOURY PHD, LULA Clement Ot Z79.899 OTHER CARE HOME (CURRENT) DRUG THERAPY 11/29/2018 SHIREEN AGARWAL N Ot D50.0 IRON DEFICIENCY ANEMIA SECONDARY TO BLOO 11/29/2018 SHIREEN AGARWAL Ot E03.9 HYPOTHYROIDISM, UNSPECIFIED 11/29/2018 SHIREEN AGARWAL N Ot E11.22 TYPE 2 DIABETES MELLITUS W DIABETIC RESPIRATORY CLINICIAN 11/29/2018 SHIREEN AGARWAL Ot E53.8 DEFICIENCY OF OTHER SPECIFIED B GROUP 11/29/2018 SHIREEN AGARWAL N Ot I12.9 HYPERTENSIVE CHRONIC KIDNEY DISEASE W ST 11/29/2018 SHIREEN AGARWAL N Ot I25.10 ATHSCL HEART DISEASE OF [place] CORONARY 11/29/2018 SHIREEN AGARWAL N Ot I48.91 UNSPECIFIED ATRIAL FIBRILLATION 11/29/2018 SHIREEN AGARWAL N Ot K31.819 ANGIODYSPLASIA OF STOMACH AND DUODENUM W 11/29/2018 SHIREEN AGARWAL N Ot K74.60 UNSPECIFIED CIRRHOSIS OF LIVER 11/29/2018 SHIREEN AGARWAL N Ot N18.3 CHRONIC KIDNEY DISEASE, STAGE 3 (MODERAT 11/29/2018 SHIREEN AGARWAL N Ot Z79.899 OTHER CARE HOME (CURRENT) DRUG THERAPY 12/13/2018 KRUNAL KHOURY PHD, LULA Clement Ot D50.0 IRON DEFICIENCY ANEMIA SECONDARY TO BLOO 12/13/2018 KRUNAL KHOURY PHD, LULA Clement Ot E03.9 HYPOTHYROIDISM, UNSPECIFIED 12/13/2018 KRUNAL KHOURY PHD, LULA Clement Ot E11.22 TYPE 2 DIABETES MELLITUS W DIABETIC RESPIRATORY CLINICIAN 12/13/2018 KRUNAL KHOUYR PHD, LULA Clement Ot E53.8 DEFICIENCY OF OTHER SPECIFIED B GROUP 12/13/2018 KRUNAL KHOURY PHD, LULA Clement Ot I12.9 HYPERTENSIVE CHRONIC KIDNEY DISEASE W ST 12/13/2018 KRUNAL KHOURY PHD, LULA Clement Ot I25.10 ATHSCL HEART DISEASE OF [place] CORONARY 12/13/2018 KRUNAL KHOURY PHD, LULA Clement Ot I48.91 UNSPECIFIED ATRIAL FIBRILLATION 12/13/2018 KRUNAL KHOURY PHD, LULA Clement Ot K31.819 ANGIODYSPLASIA OF STOMACH AND DUODENUM W 12/13/2018 KRUNAL KHOURY PHD, LULA Clement Ot K74.60 UNSPECIFIED CIRRHOSIS OF LIVER 12/13/2018 KRUNAL KHOURY PHD, LULA Clement Ot N18.3 CHRONIC KIDNEY DISEASE, STAGE 3 (MODERAT 12/13/2018 KRUNAL KHOURY PHD, LULA Clement Ot Z79.899 OTHER CARE HOME (CURRENT) DRUG THERAPY 12/28/2018 MICHELLE GARCIA DO [...] MICHELLE Ot I25.10 ATHSCL HEART DISEASE OF [place] CORONARY 12/28/2018 GARCIAFAVIO WOOD MICHELLE Ot I25.2 [...] HEMATURIA 12/28/2018 EMILIANO GARCIA DOI Ot Z79.4 CARE HOME (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 OF INSULIN 12/28/2018 RADHA WOOD MICHELLE Ot Z87.89 1 PERSONAL HISTORY OF NICOTINE DEPENDENCE 12/28/2018 RADHA WOOD MICHELLE Ot Z95.1 PRESENCE OF AORTOCORONARY BYPASS GRAFT 12/28/2018 RADHA WOOD MCIHELLE Ot Z95.5 PRESENCE OF CORONARY ANGIOPLASTY IMPLANT 12/28/2018 RADHA WOOD MICHELLE Ot Z99.81 DEPENDENCE ON SUPPLEMENTAL OXYGEN 01/05/2019 SHIREEN AGARWAL Ot D50.0 IRON DEFICIENCY ANEMIA SECONDARY TO BLOO 01/05/2019 SHIREEN AGARWAL Ot E03.9 HYPOTHYROIDISM, UNSPECIFIED 01/05/2019 SHIREEN AGARWAL Ot E11.22 TYPE 2 DIABETES MELLITUS W DIABETIC RESPIRATORY CLINICIAN 01/05/2019 SHIREEN AGARWAL Ot E53.8 DEFICIENCY OF OTHER SPECIFIED B GROUP 01/05/2019 SHIREEN AGARWAL Ot I12.9 HYPERTENSIVE CHRONIC KIDNEY DISEASE W ST 01/05/2019 SHIREEN AGARWAL Ot I25.10 ATHSCL HEART DISEASE OF [place] CORONARY 01/05/2019 SHIREEN AGARWAL Ot I48.91 UNSPECIFIED ATRIAL FIBRILLATION 01/05/2019 ANY, BOBAN N Ot K31.819 ANGIODYSPLASIA OF STOMACH AND DUODENUM W 01/05/2019 SHIREEN AGARWAL N Ot K74.60 UNSPECIFIED CIRRHOSIS OF LIVER 01/05/2019 SHIREEN AGARWAL N Ot N18.3 CHRONIC KIDNEY DISEASE, STAGE 3 (MODERAT 01/05/2019 SHIREEN AGARWAL N Ot Z79.899 OTHER COMPOSITION MOLDER (CURRENT) DRUG THERAPY 01/06/2019 SHIREEN AGARWAL N Ot D50.0 IRON DEFICIENCY ANEMIA SECONDARY TO BLOO 01/06/2019 ANYJJONDINA N Ot E03.9 HYPOTHYROIDISM, UNSPECIFIED 01/06/2019 SHIREEN AGARWAL N Ot E11.22 TYPE 2 DIABETES MELLITUS W DIABETIC RESPIRATORY CLINICIAN 01/06/2019 SHIREEN AGARWAL N Ot E53.8 DEFICIENCY OF OTHER SPECIFIED B GROUP 01/06/2019 SHIREEN AGARWAL N Ot I12.9 HYPERTENSIVE CHRONIC KIDNEY DISEASE W ST 01/06/2019 SHIREEN AGARWAL N Ot I25.10 ATHSCL HEART DISEASE OF [place] CORONARY 01/06/2019 SHIREEN AGARWAL N Ot I48.91 UNSPECIFIED ATRIAL FIBRILLATION 01/06/2019 SHIREEN AGARWAL N Ot K31.819 ANGIODYSPLASIA OF STOMACH AND DUODENUM W 01/06/2019 SHIREEN AGARWAL N Ot K74.60 UNSPECIFIED CIRRHOSIS OF LIVER 01/06/2019 SHIREEN AGARWAL N Ot N18.3 CHRONIC KIDNEY DISEASE, STAGE 3 (MODERAT 01/06/2019 SHIREEN AGARWAL N Ot Z79.899 OTHER COMPOSITION MOLDER (CURRENT) DRUG THERAPY 01/10/2019 MACIEL WELCH APRN [...] 2 TYPE 2 DIABETES MELLITUS W DIABETIC RESPIRATORY CLINICIAN 01/10/2019 BRIAN KHOURY, JAMES Champion Ot K74.6 0 UNSPECIFIED CIRRHOSIS OF LIVER 01/10/2019 BRIAN KHOURY, JAMES Champion Ot N18.9 CHRONIC KIDNEY DISEASE, UNSPECIFIED 01/10/2019 BRIAN KHOURY, JAMES Champion Ot E03.9 HYPOTHYROIDISM, UNSPECIFIED 01/10/2019 RKUNAL KHOURY PHD, LULA Clement Ot I50.32 CHRONIC [...] E11.22 TYPE 2 DIABETES MELLITUS W DIABETIC RESPIRATORY CLINICIAN 01/10/2019 KRUNAL KHOURY PHD, LULA Clement Ot E53.8 DEFICIENCY OF OTHER SPECIFIED B GROUP 01/10/2019 KRUNAL KHOURY PHD, LULA Clement Ot I12.9 HYPERTENSIVE CHRONIC KIDNEY DISEASE W ST 01/10/2019 KRUNAL KHOURY PHD, LULA Clement Ot I25.10 ATHSCL HEART DISEASE OF [place] CORONARY 01/10/2019 KRUNAL KHOURY PHD, LULA Clement Ot I48.91 UNSPECIFIED ATRIAL FIBRILLATION 01/10/2019 KRUNAL KHOURY PHD, LULA Clement Ot K31.819 ANGIODYSPLASIA OF STOMACH AND DUODENUM W 01/10/2019 KRUNAL KHOURY PHD, LULA Clement Ot K74.60 UNSPECIFIED CIRRHOSIS OF LIVER 01/10/2019 KRUNAL KHOURY PHD, LULA Clement Ot N18.3 CHRONIC KIDNEY DISEASE, STAGE 3 (MODERAT 01/10/2019 KRUNAL KHOURY PHD, LULA Clement Ot Z79.899 OTHER COMPOSITION MOLDER (CURRENT) DRUG THERAPY 01/10/2019 SHIREEN AGARWAL Ot D50.0 IRON DEFICIENCY ANEMIA SECONDARY TO BLOO 01/10/2019 SHIREEN AGARWAL Solange Ot E03.9 HYPOTHYROIDISM, UNSPECIFIED 01/10/2019 SHIREEN AGARWAL Solange Ot E11.22 TYPE 2 DIABETES MELLITUS W DIABETIC RESPIRATORY CLINICIAN 01/10/2019 SHIREEN AGARWAL Solange Ot E53.8 DEFICIENCY OF OTHER SPECIFIED B GROUP 01/10/2019 SHIREEN AGARWAL Solange Ot I12.9 HYPERTENSIVE CHRONIC KIDNEY DISEASE W ST 01/10/2019 SHIREEN AGARWAL Solange Ot I25.10 ATHSCL HEART DISEASE OF [place] CORONARY 01/10/2019 ANY JJONDINA Solange Ot I48.91 UNSPECIFIED ATRIAL FIBRILLATION 01/10/2019 SHIREEN AGARWAL Solange Ot K31.819 ANGIODYSPLASIA OF STOMACH AND DUODENUM W 01/10/2019 SHIREEN AGARWAL Solange Ot K74.60 UNSPECIFIED CIRRHOSIS OF LIVER 01/10/2019 SHIREEN AGARWAL Solange Ot N18.3 CHRONIC KIDNEY DISEASE, STAGE 3 (MODERAT 01/10/2019 SHIREEN AGARWAL Solange Ot Z79.899 OTHER COMPOSITION MOLDER (CURRENT) DRUG THERAPY 01/16/2019 KRUNAL KHOURY PHD, LULA Clement Ot D50.0 IRON DEFICIENCY ANEMIA SECONDARY TO BLOO 01/16/2019 KRUNAL KHOURY PHD, LULA Clement Ot E03.9 HYPOTHYROIDISM, UNSPECIFIED 01/16/2019 KRUNAL KHOURY PHD, LULA Clement Ot E11.22 TYPE 2 DIABETES MELLITUS W DIABETIC RESPIRATORY CLINICIAN 01/16/2019 KRUNAL KHOURY PHD, LULA Clement Ot E53.8 DEFICIENCY OF OTHER SPECIFIED B GROUP 01/16/2019 KRUNAL KHOURY PHD, LULA Clement Ot I12.9 HYPERTENSIVE CHRONIC KIDNEY DISEASE W ST 01/16/2019 KRUNAL KHOURY PHD, LULA Clement Ot I25.10 ATHSCL HEART DISEASE OF [place] CORONARY 01/16/2019 KRUNAL KHOURY PHD, LULA Clement Ot I48.91 UNSPECIFIED ATRIAL FIBRILLATION 01/16/2019 KRUNAL KHOURY PHD, LULA Clement Ot K31.819 ANGIODYSPLASIA OF STOMACH AND DUODENUM W 01/16/2019 KRUNAL KHOURY PHD, LULA Clement Ot K74.60 UNSPECIFIED CIRRHOSIS OF LIVER 01/16/2019 KRUNAL KHOURY PHD, LULA Clement Ot N18.3 CHRONIC KIDNEY DISEASE, STAGE 3 (MODERAT 01/16/2019 KRUNAL KHOURY PHD, LULA Clement Ot Z79.899 OTHER COMPOSITION MOLDER (CURRENT) DRUG THERAPY 01/23/2019 KRUNAL KHOURY PHD, LULA Clement Ot D50.0 IRON DEFICIENCY ANEMIA SECONDARY TO BLOO 01/23/2019 KRUNAL KHOURY PHD, LULA Clement Ot E03.9 HYPOTHYROIDISM, UNSPECIFIED 01/23/2019 KRUNAL KHOURY PHD, LULA Clement Ot E11.22 TYPE 2 DIABETES MELLITUS W DIABETIC RESPIRATORY CLINICIAN 01/23/2019 KRUNAL KHOURY PHD, LULA Clement Ot E53.8 DEFICIENCY OF OTHER SPECIFIED B GROUP 01/23/2019 KRUNAL KHOURY PHD, LULA Clement Ot I12.9 HYPERTENSIVE CHRONIC KIDNEY DISEASE W ST 01/23/2019 KRUNAL KHOURY PHD, LULA Clement Ot I25.10 ATHSCL HEART DISEASE OF [place] CORONARY 01/23/2019 KRUNAL KHOURY PHD, LULA Clement Ot I48.91 UNSPECIFIED ATRIAL FIBRILLATION 01/23/2019 KRUNAL KHOURY PHD, LULA Clement Ot K31.819 ANGIODYSPLASIA OF STOMACH AND DUODENUM W 01/23/2019 KRUNAL KHOURY PHD, LULA Clement Ot K74.60 UNSPECIFIED CIRRHOSIS OF LIVER 01/23/2019 KRUNAL KHOURY PHD, LULA Clement Ot N18.3 CHRONIC KIDNEY DISEASE, STAGE 3 (MODERAT 01/23/2019 KRUNAL KHOURY PHD, LULA Clement Ot Z79.899 OTHER COMPOSITION MOLDER (CURRENT) DRUG THERAPY 02/23/2019 SHIREEN AGARWAL Ot D50.0 IRON DEFICIENCY ANEMIA SECONDARY TO BLOO 02/23/2019 SHIREEN AGARWAL Ot E03.9 HYPOTHYROIDISM, UNSPECIFIED 02/23/2019 SHIREEN AGARWAL Ot E11.22 TYPE 2 DIABETES MELLITUS W DIABETIC RESPIRATORY CLINICIAN 02/23/2019 SHIREEN AGARWAL Ot E53.8 DEFICIENCY OF OTHER SPECIFIED B GROUP 02/23/2019 SHIREEN AGARWAL Ot I12.9 HYPERTENSIVE CHRONIC KIDNEY DISEASE W ST 02/23/2019 SHIREEN AGARWAL Ot I25.10 ATHSCL HEART DISEASE OF [place] CORONARY 02/23/2019 SHIREEN AGARWAL Ot I48.91 UNSPECIFIED ATRIAL FIBRILLATION 02/23/2019 SHIREEN AGARWAL Ot K31.819 ANGIODYSPLASIA OF STOMACH AND DUODENUM W 02/23/2019 SHIREEN AGARWAL Ot K74.60 UNSPECIFIED CIRRHOSIS OF LIVER 02/23/2019 SHIREEN AGARWAL Ot N18.3 CHRONIC KIDNEY DISEASE, STAGE 3 (MODERAT 02/23/2019 SHIREEN AGARWAL Ot Z79.899 OTHER COMPOSITION MOLDER (CURRENT) DRUG THERAPY 02/24/2019 KRUNAL KHOURY PHD, LULA Clement Ot D50.0 IRON DEFICIENCY ANEMIA SECONDARY TO BLOO 02/24/2019 KRUNAL KHOURY PHD, LULA Clement Ot E03.9 HYPOTHYROIDISM, UNSPECIFIED 02/24/2019 KRUNAL KHOURY PHD, LULA Clement Ot E11.22 TYPE 2 DIABETES MELLITUS W DIABETIC RESPIRATORY CLINICIAN 02/24/2019 KRUNAL KHOURY PHD, LULA Clement Ot E53.8 DEFICIENCY OF OTHER SPECIFIED B GROUP 02/24/2019 KRUNAL KHOURY PHD, LULA Clement Ot I12.9 HYPERTENSIVE CHRONIC KIDNEY DISEASE W ST 02/24/2019 KRUNAL KHOURY PHD, LULA Clement Ot I25.10 ATHSCL HEART DISEASE OF [place] CORONARY 02/24/2019 KRUNAL KHOURY PHD, LULA Clement Ot I48.91 UNSPECIFIED ATRIAL FIBRILLATION 02/24/2019 KRUNAL KHOURY PHD, LULA Clement Ot K31.819 ANGIODYSPLASIA OF STOMACH AND DUODENUM W 02/24/2019 KRUNAL KHOURY PHD, LULA Clement Ot K74.60 UNSPECIFIED CIRRHOSIS OF LIVER 02/24/2019 KRUNAL KHOURY PHD, LULA Clement Ot N18.3 CHRONIC KIDNEY DISEASE, STAGE 3 (MODERAT 02/24/2019 KRUNAL KHOURY PHD, LULA Clement Ot Z79.899 OTHER CARE HOME (CURRENT) DRUG THERAPY 03/11/2019 SHIREEN AGARWAL Ot D50.0 IRON DEFICIENCY ANEMIA SECONDARY TO BLOO 03/11/2019 SHIREEN AGARWAL Ot E03.9 HYPOTHYROIDISM, UNSPECIFIED 03/11/2019 SHIREEN AGARWAL Ot E11.22 TYPE 2 DIABETES MELLITUS W DIABETIC RESPIRATORY CLINICIAN 03/11/2019 SHIREEN AGARWAL Ot E53.8 DEFICIENCY OF OTHER SPECIFIED B GROUP 03/11/2019 SHIREEN AGARWAL Ot I12.9 HYPERTENSIVE CHRONIC KIDNEY DISEASE W ST 03/11/2019 SHIREEN AGARWAL Ot I25.10 ATHSCL HEART DISEASE OF [place] CORONARY 03/11/2019 SHIREEN AGARWAL Ot I48.91 UNSPECIFIED ATRIAL FIBRILLATION 03/11/2019 ANYSHIREEN Ot K31.819 ANGIODYSPLASIA OF STOMACH AND DUODENUM W 03/11/2019 SHIREEN AGARWAL Ot K74.60 UNSPECIFIED CIRRHOSIS OF LIVER 03/11/2019 ANYSHIREEN Ot N18.3 CHRONIC KIDNEY DISEASE, STAGE 3 (MODERAT 03/11/2019 ANYSHIREEN Ot R82.998 OTHER ABNORMAL FINDINGS IN URINE 03/11/2019 SHIREEN AGARWAL Ot Z79.899 OTHER COMPOSITION MOLDER (CURRENT) DRUG THERAPY 03/28/2019 KRUNAL KHOURY PHD, LULA Clement Ot D50.0 IRON DEFICIENCY ANEMIA SECONDARY TO BLOO 03/28/2019 KRUNAL KHOURY PHD, LULA Clement Ot E03.9 HYPOTHYROIDISM, UNSPECIFIED 03/28/2019 KRUNAL KHOURY PHD, LULA Clement Ot E11.22 TYPE 2 DIABETES MELLITUS W DIABETIC RESPIRATORY CLINICIAN 03/28/2019 KRUNAL KHOURY PHD, LULA Clement Ot E53.8 DEFICIENCY OF OTHER SPECIFIED B GROUP 03/28/2019 KRUNAL KHOURY PHD, LUAL Clement Ot I12.9 HYPERTENSIVE CHRONIC KIDNEY DISEASE W ST 03/28/2019 KRUNAL KHOURY PHD, LULA Clement Ot I25.10 ATHSCL HEART DISEASE OF [place] CORONARY 03/28/2019 KRUNAL KHOURY PHD, LULA Clement Ot I48.91 UNSPECIFIED ATRIAL FIBRILLATION 03/28/2019 KRUNAL KHOURY PHD, LULA Clement Ot K31.819 ANGIODYSPLASIA OF STOMACH AND DUODENUM W 03/28/2019 KRUNAL KHOURY PHD, LULA Clement Ot K74.60 UNSPECIFIED CIRRHOSIS OF LIVER 03/28/2019 KRUNAL KHOURY PHD, LULA Clement Ot N18.3 CHRONIC KIDNEY DISEASE, STAGE 3 (MODERAT 03/28/2019 KRUNAL KHOURY PHD, LULA Clement Ot Z79.899 OTHER COMPOSITION MOLDER (CURRENT) DRUG THERAPY 03/28/2019 SHIREEN AGARWAL Ot D50.0 IRON DEFICIENCY ANEMIA SECONDARY TO BLOO 03/28/2019 SHIREEN AGARWAL Ot E03.9 HYPOTHYROIDISM, UNSPECIFIED 03/28/2019 SHIREEN AGARWAL Ot E11.22 TYPE 2 DIABETES MELLITUS W DIABETIC RESPIRATORY CLINICIAN 03/28/2019 SHIREEN AGARWAL Ot E53.8 DEFICIENCY OF OTHER SPECIFIED B GROUP 03/28/2019 SHIREEN AGARWAL N Ot I12.9 HYPERTENSIVE CHRONIC KIDNEY DISEASE W ST 03/28/2019 ANY JJONDINA N Ot I25.10 ATHSCL HEART DISEASE OF [place] CORONARY 03/28/2019 ANY JJONDINA N Ot I48.91 UNSPECIFIED ATRIAL FIBRILLATION 03/28/2019 ANY JJONDINA N Ot K31.819 ANGIODYSPLASIA OF STOMACH AND DUODENUM W 03/28/2019 ANY SHIREEN N Ot K74.60 UNSPECIFIED CIRRHOSIS OF LIVER 03/28/2019 ANY JJONDINA N Ot N18.3 CHRONIC KIDNEY DISEASE, STAGE 3 (MODERAT 03/28/2019 ANY JJONDINA N Ot R82.998 OTHER ABNORMAL FINDINGS IN URINE 03/28/2019 ANY SHIREEN N Ot Z79.899 OTHER COMPOSITION MOLDER (CURRENT) DRUG THERAPY 04/10/2019 ANYJJONDINA N Ot D50.0 IRON DEFICIENCY ANEMIA SECONDARY TO BLOO 04/10/2019 ANYSHIREEN N Ot E03.9 HYPOTHYROIDISM, UNSPECIFIED 04/10/2019 ANYSHIREEN N Ot E11.22 TYPE 2 DIABETES MELLITUS W DIABETIC RESPIRATORY CLINICIAN 04/10/2019 ANY JJONDINA N Ot E53.8 DEFICIENCY OF OTHER SPECIFIED B GROUP 04/10/2019 ANY JJONDINA N Ot I12.9 HYPERTENSIVE CHRONIC KIDNEY DISEASE W ST 04/10/2019 ANY JJONDINA N Ot I25.10 ATHSCL HEART DISEASE OF [place] CORONARY 04/10/2019 ANY JJONDINA N Ot I48.91 UNSPECIFIED ATRIAL FIBRILLATION 04/10/2019 ANYSHIREEN N Ot K31.819 ANGIODYSPLASIA OF STOMACH AND DUODENUM W 04/10/2019 ANY JJONDINA N Ot K74.60 UNSPECIFIED CIRRHOSIS OF LIVER 04/10/2019 ANY SHIREEN N Ot N18.3 CHRONIC KIDNEY DISEASE, STAGE 3 (MODERAT 04/10/2019 SHIREEN AGARWAL N Ot R82.998 OTHER ABNORMAL FINDINGS IN URINE 04/10/2019 ANYSHIREEN BALDWIN N Ot Z79.899 OTHER COMPOSITION MOLDER (CURRENT) DRUG THERAPY 04/11/2019 KRUNAL KHOURY PHD, LULA Clement Ot D50.0 IRON DEFICIENCY ANEMIA SECONDARY TO BLOO 04/11/2019 KRUNAL KHOURY PHD, LULA S Ot E03.9 HYPOTHYROIDISM, UNSPECIFIED 04/11/2019 KRUNAL KHOURY PHD, LULA Clement Ot E11.22 TYPE 2 DIABETES MELLITUS W DIABETIC RESPIRATORY CLINICIAN 04/11/2019 KRUNAL KHOURY PHD, LULA Clement Ot E53.8 DEFICIENCY OF OTHER SPECIFIED B GROUP 04/11/2019 KRUNAL KHOURY PHD, LULA Clement Ot I12.9 HYPERTENSIVE CHRONIC KIDNEY DISEASE W ST 04/11/2019 KRUNAL HKOURY PHD, LULA Clement Ot I25.10 ATHSCL HEART DISEASE OF [place] CORONARY 04/11/2019 KRUNAL KHOURY PHD, LULA Clement Ot I48.91 UNSPECIFIED ATRIAL FIBRILLATION 04/11/2019 KRUNAL KHOURY PHD, LULA Clement Ot K31.819 ANGIODYSPLASIA OF STOMACH AND DUODENUM W 04/11/2019 KRUNAL KHOURY PHD, LULA Clement Ot K74.60 UNSPECIFIED CIRRHOSIS OF LIVER 04/11/2019 KRUNAL KHOURY PHD, LULA Clement Ot N18.3 CHRONIC KIDNEY DISEASE, STAGE 3 (MODERAT 04/11/2019 KRUNAL KHOURY PHD, LULA Clement Ot Z79.899 OTHER CARE HOME (CURRENT) DRUG THERAPY 04/11/2019 SHIREEN AGARWAL Ot D50.0 IRON DEFICIENCY ANEMIA SECONDARY TO BLOO 04/11/2019 SHIREEN AGARWAL Ot E03.9 HYPOTHYROIDISM, UNSPECIFIED 04/11/2019 SHIREEN AGARWAL N Ot E11.22 TYPE 2 DIABETES MELLITUS W DIABETIC RESPIRATORY CLINICIAN 04/11/2019 SHIREEN AGARWAL Ot E53.8 DEFICIENCY OF OTHER SPECIFIED B GROUP 04/11/2019 SHIREEN AGARWAL Ot I12.9 HYPERTENSIVE CHRONIC KIDNEY DISEASE W ST 04/11/2019 SHIREEN AGARWAL Ot I25.10 ATHSCL HEART DISEASE OF [place] CORONARY 04/11/2019 SHIREEN AGARWAL N Ot I48.91 UNSPECIFIED ATRIAL FIBRILLATION 04/11/2019 SHIREEN AGARWAL N Ot K31.819 ANGIODYSPLASIA OF STOMACH AND DUODENUM W 04/11/2019 SHIREEN AGARWAL N Ot K74.60 UNSPECIFIED CIRRHOSIS OF LIVER 04/11/2019 SHIREEN AGARWAL N Ot N18.3 CHRONIC KIDNEY DISEASE, STAGE 3 (MODERAT 04/11/2019 SHIREEN AGARWAL N Ot R82.998 OTHER ABNORMAL FINDINGS IN URINE 04/11/2019 SHIREEN AGARWAL N Ot Z79.899 OTHER COMPOSITION MOLDER (CURRENT) DRUG THERAPY 04/12/2019 JAMES TORRES MD Ot D64.9 ANEMIA, UNSPECIFIED 04/12/2019 JAMES TORRES MD, Ot E11.2 2 TYPE 2 DIABETES MELLITUS W DIABETIC RESPIRATORY CLINICIAN 04/12/2019 JAMES TORRES MD Ot E78.5 HYPERLIPIDEMIA, UNSPECIFIED 04/12/2019 JAMES TORRES MD, Ot F41.9 ANXIETY DISORDER, UNSPECIFIED 04/12/2019 JAMES TORRES MD Ot G89.2 9 OTHER CHRONIC PAIN 04/12/2019 JAMES TORRES MD Ot I12.9 HYPERTENSIVE CHRONIC KIDNEY DISEASE W ST 04/12/2019 JAMES TORRES MD, Ot I25.1 0 ATHSCL HEART DISEASE OF [place] CORONARY 04/12/2019 JAMES TORRES MD Ot I48.9 [...] HEMATURIA 04/12/2019 JAMES TORRES MD, Ot Z79.4 COMPOSITION MOLDER (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 OF INSULIN 04/12/2019 JAMES TORRES [...] 2 TYPE 2 DIABETES MELLITUS W DIABETIC RESPIRATORY CLINICIAN 04/12/2019 JAMES TORRES MD, Ot E78.5 HYPERLIPIDEMIA, UNSPECIFIED 04/12/2019 JAMES TORRES MD, Ot F41.9 ANXIETY DISORDER, UNSPECIFIED 04/12/2019 JAMES TORRES MD Ot G89.2 9 OTHER CHRONIC PAIN 04/12/2019 JAMES TORRES MD Ot I12.9 HYPERTENSIVE CHRONIC KIDNEY DISEASE W ST 04/12/2019 JAMES TORRES MD, Ot I25.1 0 ATHSCL HEART DISEASE OF [place] CORONARY 04/12/2019 JAMES TORRES MD, Ot I48.9 [...] HEMATURIA 04/12/2019 JAMES TORRES MD, Ot Z79.4 CARE HOME (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 OF INSULIN 04/12/2019 JAMES TORRES [...] E11.22 TYPE 2 DIABETES MELLITUS W DIABETIC RESPIRATORY CLINICIAN 04/24/2019 KRUNAL KHOURY PHD, LULA Clement Ot E53.8 DEFICIENCY OF OTHER SPECIFIED B GROUP 04/24/2019 KRUNAL KHOURY PHD, LULA Clement Ot I12.9 HYPERTENSIVE CHRONIC KIDNEY DISEASE W ST 04/24/2019 KRUNAL KHOURY PHD, LULA Clement Ot I25.10 ATHSCL HEART DISEASE OF [place] CORONARY 04/24/2019 KRUNAL KHOURY PHD, LULA Clement Ot I48.91 UNSPECIFIED ATRIAL FIBRILLATION 04/24/2019 KRUNAL KHOURY PHD, LULA Clement Ot K31.819 ANGIODYSPLASIA OF STOMACH AND DUODENUM W 04/24/2019 KRUNAL KHOURY PHD, LULA Clement Ot K74.60 UNSPECIFIED CIRRHOSIS OF LIVER 04/24/2019 KRUNAL KHOURY PHD, LULA Clement Ot N18.3 CHRONIC KIDNEY DISEASE, STAGE 3 (MODERAT 04/24/2019 KRUNAL KHOURY PHD, LULA Clement Ot Z79.899 OTHER CARE HOME (CURRENT) DRUG THERAPY 04/25/2019 SHIREEN AGARWAL Ot D50.9 IRON DEFICIENCY ANEMIA, UNSPECIFIED 04/25/2019 SHIREEN AGARWAL Ot D63.1 ANEMIA IN CHRONIC KIDNEY DISEASE 04/25/2019 SHIREEN AGARWAL Ot E03.9 HYPOTHYROIDISM, UNSPECIFIED 04/25/2019 SHIREEN AGARWAL Ot E11.22 TYPE 2 DIABETES MELLITUS W DIABETIC RESPIRATORY CLINICIAN 04/25/2019 SHIREEN AGARWAL Ot E53.8 DEFICIENCY OF OTHER SPECIFIED B GROUP 04/25/2019 SHIREEN AGARWAL Ot E66.9 OBESITY, UNSPECIFIED 04/25/2019 SHIREEN AGARWAL Ot E78.5 HYPERLIPIDEMIA, UNSPECIFIED 04/25/2019 SHIREEN AGARWAL Ot 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 04/25/2019 SHIREEN AGARWAL Ot I25.10 ATHSCL HEART DISEASE OF [place] CORONARY 04/25/2019 SHIREEN AGARWAL Ot I47.1 SUPRAVENTRICULAR [...] (MODERAT 04/25/2019 SHIREEN AGARWAL Ot Z79.899 OTHER CARE HOME (CURRENT) DRUG THERAPY 04/25/2019 SHIREEN AGARWAL Ot [...] 2 TYPE 2 DIABETES MELLITUS W DIABETIC RESPIRATORY CLINICIAN 05/02/2019 BRIAN KHOURY, JAMES R Ot K74.6 [...] E11.22 TYPE 2 DIABETES MELLITUS W DIABETIC RESPIRATORY CLINICIAN 05/02/2019 SHIREEN AGARWAL Ot E53.8 DEFICIENCY OF OTHER SPECIFIED B GROUP 05/02/2019 SHIREEN AGARWAL N Ot E66.9 OBESITY, UNSPECIFIED 05/02/2019 SHIREEN AGARWAL N Ot E78.5 HYPERLIPIDEMIA, UNSPECIFIED 05/02/2019 SHIREEN AGARWAL Ot 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 05/02/2019 ANY JJONDINA Solange Ot I25.10 ATHSCL HEART DISEASE OF [place] CORONARY 05/02/2019 ANYSHIREEN Ot I47.1 SUPRAVENTRICULAR TACHYCARDIA [...] 33.0-33.9, ADULT 05/02/2019 ANYSHIREEN Ot Z79.899 OTHER COMPOSITION MOLDER (CURRENT) DRUG THERAPY 05/02/2019 ANYSHIREEN Ot Z80.0 FAMILY HISTORY OF MALIGNANT NEOPLASM OF 05/02/2019 KRUNAL KHOURY PHD, LULA Clement Ot D50.0 IRON DEFICIENCY ANEMIA SECONDARY TO BLOO 05/02/2019 KRUNAL KHOURY PHD, LULA Clement Ot E03.9 HYPOTHYROIDISM, UNSPECIFIED 05/02/2019 KRUNAL KHOURY PHD, LULA Clement Ot E11.22 TYPE 2 DIABETES MELLITUS W DIABETIC RESPIRATORY CLINICIAN 05/02/2019 KRUNAL KHOURY PHD, LULA Clement Ot E53.8 DEFICIENCY OF OTHER SPECIFIED B GROUP 05/02/2019 KRUNAL KHOURY PHD, LULA Clement Ot I12.9 HYPERTENSIVE CHRONIC KIDNEY DISEASE W ST 05/02/2019 KRUNAL KHOURY PHD, LULA Clement Ot I25.10 ATHSCL HEART DISEASE OF [place] CORONARY 05/02/2019 KRUNAL KHOURY PHD, LULA Clement Ot I48.91 UNSPECIFIED ATRIAL FIBRILLATION 05/02/2019 KRUNAL KHOURY PHD, LULA Clement Ot K31.819 ANGIODYSPLASIA OF STOMACH AND DUODENUM W 05/02/2019 KRUNAL KHOURY PHD, LULA Clement Ot K74.60 UNSPECIFIED CIRRHOSIS OF LIVER 05/02/2019 KRUNAL KHOURY PHD, LULA Clement Ot N18.3 CHRONIC KIDNEY DISEASE, STAGE 3 (MODERAT 05/02/2019 KRUNAL KHOURY PHD, LULA Clement Ot Z79.899 OTHER COMPOSITION MOLDER (CURRENT) DRUG THERAPY 05/07/2019 MALLORIE FATIMA APRN Ot D64 .9 ANEMIA, UNSPECIFIED 05/07/2019 MALLORIE FATIMA APRN Ot E11.22 TYPE 2 DIABETES MELLITUS W DIABETIC RESPIRATORY CLINICIAN 05/07/2019 MALLORIE FATIMA APRN Ot E78.00 PURE HYPERCHOLESTEROLEMIA, UNSPECIFIED 05/07/2019 MALLORIE FATIMA APRN Ot F41 .9 ANXIETY DISORDER, UNSPECIFIED 05/07/2019 MALLORIE FATIMA APRN Ot I12 .9 HYPERTENSIVE CHRONIC KIDNEY DISEASE W ST 05/07/2019 MALLORIE FATIMA APRN Ot I25.10 ATHSCL HEART DISEASE OF [place] CORONARY 05/07/2019 MALLORIE FATIMA APRN Ot I25 [...] 05/07/2019 MALLORIE FATIMA APRN Ot Z79 .4 CARE HOME (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 OF INSULIN 05/07/2019 MALLORIE FATIMA [...] E11.22 TYPE 2 DIABETES MELLITUS W DIABETIC RESPIRATORY CLINICIAN 05/11/2019 MALLORIE FATIMA APRN Ot E78.00 PURE HYPERCHOLESTEROLEMIA, UNSPECIFIED 05/11/2019 MALLORIE FATIMA APRN Ot F41 .9 ANXIETY DISORDER, UNSPECIFIED 05/11/2019 MALLORIE FATIMA APRN Ot I12 .9 HYPERTENSIVE CHRONIC KIDNEY DISEASE W ST 05/11/2019 MALLORIE FATIMA APRN Ot I25.10 ATHSCL HEART DISEASE OF [place] CORONARY 05/11/2019 MALLORIE FATIMA APRN Ot I25 [...] 05/11/2019 MALLORIE FATIMA APRN Ot Z79 .4 COMPOSITION MOLDER (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 OF INSULIN 05/11/2019 MALLORIE FATIMA APRN Ot Z80 .8 FAMILY HISTORY OF MALIGNANT NEOPLASM OF 05/11/2019 MALLORIE FATIMA APRN Ot Z82.49 FAMILY HX OF ISCHEM HEART DIS AND OTH DI 05/11/2019 MALOLRIE FATIMA APRN Ot Z87.891 PERSONAL HISTORY OF [...] TUBAL LIGATION STATUS 05/16/2019 MARY ANN CRUZ HATCHERY HELPER Ot E03.9 HYPOTHYROIDISM, UNSPECIFIED 05/20/2019 KRUNAL KHOURY PHD, LULA Clement Ot I50.32 CHRONIC DIASTOLIC (CONGESTIVE) HEART KATY 05/30/2019 SHIREEN AGARWAL Ot D50.9 IRON DEFICIENCY ANEMIA, UNSPECIFIED 05/30/2019 SHIREEN AGARWAL Ot D63.1 ANEMIA IN CHRONIC KIDNEY DISEASE 05/30/2019 SHIREEN AGARWAL Ot E03.9 HYPOTHYROIDISM, UNSPECIFIED 05/30/2019 SHIREEN AGARWAL Ot E11.22 TYPE 2 DIABETES MELLITUS W DIABETIC RESPIRATORY CLINICIAN 05/30/2019 SHIREEN AGARWAL Ot E53.8 DEFICIENCY OF OTHER SPECIFIED B GROUP 05/30/2019 SHIREEN AGARWAL Ot E66.9 OBESITY, UNSPECIFIED 05/30/2019 SHIREEN AGARWAL Ot E78.5 HYPERLIPIDEMIA, UNSPECIFIED 05/30/2019 SHIREEN AGARWAL Ot 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 05/30/2019 SHIREEN AGARWAL Ot I25.10 ATHSCL HEART DISEASE OF [place] CORONARY 05/30/2019 SHIREEN AGARWAL Ot I47.1 SUPRAVENTRICULAR [...] 05/30/2019 SHIREEN AGARWAL Solange Ot Z79.899 OTHER CARE HOME (CURRENT) DRUG THERAPY 05/30/2019 SHIREEN AGARWAL Ot Z80.0 FAMILY HISTORY OF MALIGNANT NEOPLASM OF 06/01/2019 RACHELE JEFFERSON EDGE WORKER Ot J98.11 ATELECTASIS 06/01/2019 RACHELE JEFFERSON EDGE WORKER Ot J98.4 OTHER DISORDERS OF LUNG 06/01/2019 RACHELE JEFFERSON EDGE WORKER Ot Z95.9 PRESENCE OF CARDIAC AND VASCULAR [...] MD, Ot I25.10 ATHSCL HEART DISEASE OF [place] CORONARY 06/06/2019 TOMASA CARMONA MD, Ot I25 [...] 06/06/2019 TOMASA CARMONA MD, Ot Z79 .4 CARE HOME (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 OF INSULIN 06/06/2019 TOMASA CARMONA [...] E11.22 TYPE 2 DIABETES MELLITUS W DIABETIC RESPIRATORY CLINICIAN 06/27/2019 SHIREEN AGARWAL Ot E53.8 DEFICIENCY OF OTHER SPECIFIED B GROUP 06/27/2019 SHIREEN AGARWAL Ot E66.9 OBESITY, UNSPECIFIED 06/27/2019 SHIREEN AGARWAL Ot E78.5 HYPERLIPIDEMIA, UNSPECIFIED 06/27/2019 SHIREEN AGARWAL Ot 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 06/27/2019 SHIREEN AGARWAL Ot I25.10 ATHSCL HEART DISEASE OF [place] CORONARY 06/27/2019 SHIREEN AGARWAL Ot I47.1 SUPRAVENTRICULAR [...] ADULT 06/27/2019 SHIREEN AGARWAL Ot Z79.899 OTHER COMPOSITION MOLDER (CURRENT) DRUG THERAPY 06/27/2019 SHIREEN AGARWAL Ot Z80.0 FAMILY HISTORY OF MALIGNANT NEOPLASM OF 07/11/2019 SHIREEN AGARWAL Ot D50.9 IRON DEFICIENCY ANEMIA, UNSPECIFIED 07/11/2019 SHIREEN AGARWAL Ot D63.1 ANEMIA IN CHRONIC KIDNEY DISEASE 07/11/2019 SHIREEN AGARWAL Ot E03.9 HYPOTHYROIDISM, UNSPECIFIED 07/11/2019 SHIREEN AGARWAL Ot E11.22 TYPE 2 DIABETES MELLITUS W DIABETIC RESPIRATORY CLINICIAN 07/11/2019 SHIREEN AGARWAL Ot E53.8 DEFICIENCY OF OTHER SPECIFIED B GROUP 07/11/2019 SHIREEN AGARWAL Ot E66.9 OBESITY, UNSPECIFIED 07/11/2019 SHIREEN AGARWAL Ot E78.5 HYPERLIPIDEMIA, UNSPECIFIED 07/11/2019 SHIREEN AGARWAL Ot 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 07/11/2019 SHIREEN AGARWAL Ot I25.10 ATHSCL HEART DISEASE OF [place] CORONARY 07/11/2019 SHIREEN AGARWAL Ot I47.1 SUPRAVENTRICULAR [...] SHIREEN AGARWAL Ot K64.9 UNSPECIFIED HEMORRHOIDS 07/11/2019 SHRIEEN AGARWAL Ot K74.60 UNSPECIFIED CIRRHOSIS OF LIVER 07/11/2019 SHIREEN AGARWAL Ot M19.90 UNSPECIFIED OSTEOARTHRITIS, UNSPECIFIED 07/11/2019 SHIREEN AGARWAL Ot N18.3 CHRONIC KIDNEY DISEASE, STAGE 3 (MODERAT 07/11/2019 SHIREEN AGARWAL Ot Z68.33 BODY MASS INDEX (BMI) 33.0-33.9, ADULT 07/11/2019 SHIREEN AGARWAL Ot Z79.899 OTHER COMPOSITION MOLDER (CURRENT) DRUG THERAPY 07/11/2019 SHIREEN AGARWAL Ot Z80.0 FAMILY HISTORY OF MALIGNANT NEOPLASM OF 07/11/2019 SHIREEN AGARWAL Ot D50.9 IRON DEFICIENCY ANEMIA, UNSPECIFIED 07/11/2019 SHIREEN AGARWAL Ot D63.1 ANEMIA IN CHRONIC KIDNEY DISEASE 07/11/2019 SHIREEN AGARWAL Ot E03.9 HYPOTHYROIDISM, UNSPECIFIED 07/11/2019 SHIREEN AGARWAL Ot E11.22 TYPE 2 DIABETES MELLITUS W DIABETIC RESPIRATORY CLINICIAN 07/11/2019 SHIREEN AGARWAL Ot E53.8 DEFICIENCY OF OTHER SPECIFIED B GROUP 07/11/2019 SHIREEN AGARWAL Ot E66.9 OBESITY, UNSPECIFIED 07/11/2019 SHIREEN AGARWAL Ot E78.5 HYPERLIPIDEMIA, UNSPECIFIED 07/11/2019 SHIREEN AGARWAL Ot 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 07/11/2019 SHIREEN AGARWAL Ot I25.10 ATHSCL HEART DISEASE OF [place] CORONARY 07/11/2019 SHIREEN AGARWAL Ot I47.1 SUPRAVENTRICULAR [...] ADULT 07/11/2019 SHIREEN AGARWAL Ot Z79.899 OTHER CARE HOME (CURRENT) DRUG THERAPY 07/11/2019 SHIREEN AGARWAL Ot Z80.0 FAMILY HISTORY OF MALIGNANT NEOPLASM OF 07/17/2019 SHIREEN AGARWAL Ot D50.9 IRON DEFICIENCY ANEMIA, UNSPECIFIED 07/17/2019 SHIREEN AGARWAL Ot D63.1 ANEMIA IN CHRONIC KIDNEY DISEASE 07/17/2019 SHIREEN AGARWAL Ot E03.9 HYPOTHYROIDISM, UNSPECIFIED 07/17/2019 SHIREEN AGARWAL Ot E11.22 TYPE 2 DIABETES MELLITUS W DIABETIC RESPIRATORY CLINICIAN 07/17/2019 SHIREEN AGARWAL Ot E53.8 DEFICIENCY OF OTHER SPECIFIED B GROUP 07/17/2019 SHIREEN AGARWAL Ot E66.9 OBESITY, UNSPECIFIED 07/17/2019 SHIREEN AGARWAL Ot E78.5 HYPERLIPIDEMIA, UNSPECIFIED 07/17/2019 SHIREEN AGARWAL Ot 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 07/17/2019 SHIREEN AGARWAL Ot I25.10 ATHSCL HEART DISEASE OF [place] CORONARY 07/17/2019 SHIREEN AGARWAL Ot I47.1 SUPRAVENTRICULAR [...] 07/17/2019 SHIREEN AGARWAL Solange Ot Z79.899 OTHER COMPOSITION MOLDER (CURRENT) DRUG THERAPY 07/17/2019 SHIREEN AGARWAL Solange [...] MICHELLE Ot I25.10 ATHSCL HEART DISEASE OF [place] CORONARY 07/28/2019 RADHA DO, MICHELLE Ot I25.2 [...] SHOCK 07/28/2019 GARCIA DO, MICHELLE Ot Z79.4 CARE HOME (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 OF INSULIN 07/28/2019 GARCIA DO [...] E11.22 TYPE 2 DIABETES MELLITUS W DIABETIC RESPIRATORY CLINICIAN 08/05/2019 SHIREEN AGARWAL Ot E53.8 DEFICIENCY OF OTHER SPECIFIED B GROUP 08/05/2019 SHIREEN AGARWAL Ot E66.9 OBESITY, UNSPECIFIED 08/05/2019 SHIREEN AGARWAL Ot E78.5 HYPERLIPIDEMIA, UNSPECIFIED 08/05/2019 SHIREEN AGARWAL Ot 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 08/05/2019 SHIREEN AGARWAL Ot I25.10 ATHSCL HEART DISEASE OF [place] CORONARY 08/05/2019 SHIREEN AGARWAL Ot I47.1 SUPRAVENTRICULAR [...] ADULT 08/05/2019 SHIREEN AGARWAL Ot Z79.899 OTHER COMPOSITION MOLDER (CURRENT) DRUG THERAPY 08/05/2019 SHIREEN AGARWAL Ot [...] MICHELLE Ot E87.6 HYPOKALEMIA 09/21/2019 RADHA DO MCIHELLE Ot F41.9 ANXIETY DISORDER, UNSPECIFIED 09/21/2019 RADHA DO, MICHELLE Ot G47.30 SLEEP APNEA, UNSPECIFIED 09/21/2019 GARCIA DO, MICHELLE Ot I12.9 HYPERTENSIVE CHRONIC KIDNEY DISEASE W ST 09/21/2019 GARCIA DO, MICHELLE Ot I25.10 ATHSCL HEART DISEASE OF [place] CORONARY 09/21/2019 GARCIA DO, MICHELLE Ot I25.2 [...] SHOCK 09/21/2019 GARCIA DO, MICHELLE Ot Z79.4 COMPOSITION MOLDER (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 OF INSULIN 09/21/2019 GARCIA DO [...] Rashid Ot I25.10 ATHSCL HEART DISEASE OF [place] CORONARY 09/27/2019 KATERYNA KHOURY, MAUREEN Rashid Ot [...] UNSPECIFIED 09/27/2019 MAUREEN AVENDAÑO MD Ot Z79.4 COMPOSITION MOLDER (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 OF INSULIN 09/27/2019 KATERYNA KHOURY, MAUREEN Rashid Ot Z87.891 PERSONAL HISTORY [...] MD Ot I25.10 ATHSCL HEART DISEASE OF [place] CORONARY 09/28/2019 MAUREEN AVENDAÑO MD, Ot I48.91 [...] UNSPECIFIED 09/28/2019 MAUREEN AVENDAÑO MD, Ot Z79.4 CARE HOME (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 OF INSULIN 09/28/2019 MAUREEN AVENDAÑO [...] MD, Ot I25.10 ATHSCL HEART DISEASE OF [place] CORONARY 10/04/2019 MAUREEN AVENDAÑO MD Ot I48.91 [...] UNSPECIFIED 10/04/2019 MAUREEN AVENDAÑO MD, Ot Z79.4 CARE HOME (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 OF INSULIN 10/04/2019 MAUREEN AVENDAÑO [...] E11.22 TYPE 2 DIABETES MELLITUS W DIABETIC RESPIRATORY CLINICIAN 10/06/2019 SHIREEN AGARWAL Ot E53.8 DEFICIENCY OF OTHER SPECIFIED B GROUP 10/06/2019 SHIREEN AGARWAL Ot E66.9 OBESITY, UNSPECIFIED 10/06/2019 SHIREEN AGARWAL Ot E78.5 HYPERLIPIDEMIA, UNSPECIFIED 10/06/2019 SHIREEN AGARWAL Ot 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 10/06/2019 SHIREEN AGARWAL Ot I25.10 ATHSCL HEART DISEASE OF [place] CORONARY 10/06/2019 SHIREEN AGARWAL Ot I47.1 SUPRAVENTRICULAR TACHYCARDIA 10/06/2019 SHIREEN AGARWAL Ot I48.91 UNSPECIFIED ATRIAL FIBRILLATION 10/06/2019 SHIREEN AGARWAL Ot I50.30 UNSPECIFIED DIASTOLIC (CONGESTIVE) HEART 10/06/2019 [...] ADULT 10/06/2019 SHIREEN AGARWAL Ot Z79.899 OTHER COMPOSITION MOLDER (CURRENT) DRUG THERAPY 10/06/2019 SHIREEN AGARWAL Ot Z80.0 FAMILY HISTORY OF MALIGNANT NEOPLASM OF 10/06/2019 KRUNAL KHOURY PHD, LULA Clement Ot I50.32 CHRONIC DIASTOLIC (CONGESTIVE) HEART KATY 10/08/2019 KRUNAL KHOURY PHD, LULA Clement Ot I50.32 CHRONIC DIASTOLIC (CONGESTIVE) HEART KATY 10/16/2019 SHIREEN AGARWAL Ot D50.9 IRON DEFICIENCY ANEMIA, UNSPECIFIED 10/16/2019 SHIREEN AGARWAL Ot D63.1 ANEMIA IN CHRONIC KIDNEY DISEASE 10/16/2019 SHIREEN AGARWAL Ot E03.9 HYPOTHYROIDISM, UNSPECIFIED 10/16/2019 SHIREEN AGARWAL Ot E11.22 TYPE 2 DIABETES MELLITUS W DIABETIC RESPIRATORY CLINICIAN 10/16/2019 SHIREEN AGARWAL Ot E53.8 DEFICIENCY OF OTHER SPECIFIED B GROUP 10/16/2019 SHIREEN AGARWAL Ot E66.9 OBESITY, UNSPECIFIED 10/16/2019 SHIREEN AGARWAL Ot E78.5 HYPERLIPIDEMIA, UNSPECIFIED 10/16/2019 SHIREEN AGARWAL Ot 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 10/16/2019 SHIREEN AGARWAL Ot I25.10 ATHSCL HEART DISEASE OF [place] CORONARY 10/16/2019 SHIREEN AGARWAL Ot I47.1 SUPRAVENTRICULAR TACHYCARDIA 10/16/2019 SHIREEN AGARWAL Ot I48.91 UNSPECIFIED ATRIAL FIBRILLATION 10/16/2019 SHIREEN AGARWAL Ot I50.30 UNSPECIFIED DIASTOLIC (CONGESTIVE) HEART 10/16/2019 SHIEREN AGARWAL Ot K29.51 UNSPECIFIED CHRONIC GASTRITIS WITH [...] ADULT 10/16/2019 SHIREEN AGARWAL Ot Z79.899 OTHER CARE HOME (CURRENT) DRUG THERAPY 10/16/2019 SHIREEN AGARWAL Ot Z80.0 FAMILY HISTORY OF MALIGNANT NEOPLASM OF 10/18/2019 SHIREEN AGARWAL Ot D50.9 IRON DEFICIENCY ANEMIA, UNSPECIFIED 10/18/2019 SHIREEN AGARWAL Ot D63.1 ANEMIA IN CHRONIC KIDNEY DISEASE 10/18/2019 SHIREEN AGARWAL Ot E03.9 HYPOTHYROIDISM, UNSPECIFIED 10/18/2019 SHIREEN AGARWAL Ot E11.22 TYPE 2 DIABETES MELLITUS W DIABETIC RESPIRATORY CLINICIAN 10/18/2019 SHIREEN AGARWAL Ot E53.8 DEFICIENCY OF OTHER SPECIFIED B GROUP 10/18/2019 SHIREEN AGARWAL Ot E66.9 OBESITY, UNSPECIFIED 10/18/2019 SHIREEN AGARWAL Ot E78.5 HYPERLIPIDEMIA, UNSPECIFIED 10/18/2019 SHIREEN AGARWAL Ot 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 10/18/2019 SHIREEN AGARWAL Ot I25.10 ATHSCL HEART DISEASE OF [place] CORONARY 10/18/2019 SHIREEN AGARWAL Ot I47.1 SUPRAVENTRICULAR [...] ADULT 10/18/2019 SHIREEN AGARWAL Ot Z79.899 OTHER CARE HOME (CURRENT) DRUG THERAPY 10/18/2019 SHIREEN AGARWAL Ot Z80.0 FAMILY HISTORY OF MALIGNANT NEOPLASM OF 10/18/2019 SHIREEN AGARWAL Ot D50.9 IRON DEFICIENCY ANEMIA, UNSPECIFIED 10/18/2019 SHIREEN AGARWAL Ot D63.1 ANEMIA IN CHRONIC KIDNEY DISEASE 10/18/2019 SHIREEN AGARWAL Ot E03.9 HYPOTHYROIDISM, UNSPECIFIED 10/18/2019 SHIREEN AGARWAL Ot E11.22 TYPE 2 DIABETES MELLITUS W DIABETIC RESPIRATORY CLINICIAN 10/18/2019 SHIREEN AGARWAL Ot E53.8 DEFICIENCY OF OTHER SPECIFIED B GROUP 10/18/2019 SHIREEN AGARWAL Ot E66.9 OBESITY, UNSPECIFIED 10/18/2019 SHIREEN AGARWAL Ot E78.5 HYPERLIPIDEMIA, UNSPECIFIED 10/18/2019 SHIREEN AGARWAL Ot 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 10/18/2019 SHIREEN AGARWAL Ot I25.10 ATHSCL HEART DISEASE OF [place] CORONARY 10/18/2019 SHIREEN AGARWAL Ot I47.1 SUPRAVENTRICULAR [...] ADULT 10/18/2019 SHIREEN AGARWAL Ot Z79.899 OTHER CARE HOME (CURRENT) DRUG THERAPY 10/18/2019 SHIREEN AGARWAL Ot Z80.0 FAMILY HISTORY OF MALIGNANT NEOPLASM OF 10/20/2019 SHIREEN AGARWAL Ot D50.9 IRON DEFICIENCY ANEMIA, UNSPECIFIED 10/20/2019 SHIREEN AGARWAL Ot D63.1 ANEMIA IN CHRONIC KIDNEY DISEASE 10/20/2019 SHIREEN AGARWAL Ot E03.9 HYPOTHYROIDISM, UNSPECIFIED 10/20/2019 SHIREEN AGARWAL Ot E11.22 TYPE 2 DIABETES MELLITUS W DIABETIC RESPIRATORY CLINICIAN 10/20/2019 SHIREEN AGARWAL Ot E53.8 DEFICIENCY OF OTHER SPECIFIED B GROUP 10/20/2019 SHIREEN AGARWAL Ot E66.9 OBESITY, UNSPECIFIED 10/20/2019 SHIREEN AGARWAL Ot E78.5 HYPERLIPIDEMIA, UNSPECIFIED 10/20/2019 SHIREEN AGARWAL Ot 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 10/20/2019 SHIREEN AGARWAL Ot I25.10 ATHSCL HEART DISEASE OF [place] CORONARY 10/20/2019 SHIREEN AGARWAL Ot I47.1 SUPRAVENTRICULAR [...] ADULT 10/20/2019 SHIREEN AGARWAL Ot Z79.899 OTHER COMPOSITION MOLDER (CURRENT) DRUG THERAPY 10/20/2019 SHIREEN AGARWAL Ot Z80.0 FAMILY HISTORY OF MALIGNANT NEOPLASM OF 10/20/2019 SHIREEN AGARWAL Ot D50.9 IRON DEFICIENCY ANEMIA, UNSPECIFIED 10/20/2019 SHIREEN AGARWAL Ot D63.1 ANEMIA IN CHRONIC KIDNEY DISEASE 10/20/2019 SHIREEN AGARWAL Ot E03.9 HYPOTHYROIDISM, UNSPECIFIED 10/20/2019 SHIREEN AGARWAL Ot E11.22 TYPE 2 DIABETES MELLITUS W DIABETIC RESPIRATORY CLINICIAN 10/20/2019 SHIREEN AGARWAL Ot E53.8 DEFICIENCY OF OTHER SPECIFIED B GROUP 10/20/2019 SHIREEN AGARWAL Ot E66.9 OBESITY, UNSPECIFIED 10/20/2019 SHIREEN AGARWAL Ot E78.5 HYPERLIPIDEMIA, UNSPECIFIED 10/20/2019 SHIREEN AGARWAL Ot 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 10/20/2019 SHIREEN AGARWAL Ot I25.10 ATHSCL HEART DISEASE OF [place] CORONARY 10/20/2019 SHIREEN AGARWAL Ot I47.1 SUPRAVENTRICULAR [...] ADULT 10/20/2019 SHIREEN AGARWAL Ot Z79.899 OTHER COMPOSITION MOLDER (CURRENT) DRUG THERAPY 10/20/2019 SHIREEN AGARWAL Ot [...] 05/21/2010 88.56 SAE RYAN ARTERIOGR-2 CATH 05/21/2010 [id number] ME ASURE OF CARDIAC SAMPL PRESSURE, L H 01/30/2017 [id number] FL UOROSCOPY OF MULT COR ART USING L OSM 01/30/2017 [id number] FL UOROSCOPY OF LEFT HEART USING LOW OSMO 01/30/2017 [id number] ME ASURE OF CARDIAC SAMPL PRESSURE, L H 02/12/2018 [id number] FL UOROSCOPY OF MULT COR ART USING L OSM 02/12/[id number] GLASGOW OF BILATERAL LUNGS, ENDO, DIAGN 05/30/2018 [id number] EX TRACTION OF RIGHT MAIN BRONCHUS, ENDO, 05/30/2018 [id number] EX TRACTION OF LEFT MAIN BRONCHUS, ENDO, 05/30/2018 [id number] RE SPIRATORY VENTILATION, 24- 96 CONSECUTI 05/30/2018 [id number] IN TRODUCTION OF ANTI- INFLAMMATORY INTO J [...] ABO+Rh group AP NRG Transfusion band number [id number] NR Blood group antibody screen POSITIVE NR G Blood group antibodies identified - 01/13 12/29 13:20 Blood group antibodies identified [facility] Capillary blood glucose measurement by g lucometer [...] REDUCED AS1 P RSMD TRFSD 06/12/17 0855 [facility] [id number] - 06/10/17 11:45 [id number] SPECIMEN AVAILABLE NR Blood type T Indirect antibody screen pa myron - 06/10/17 11:45 ABO+Rh group AP NR Transfusion band number [id number] NR Blood group antibody screen POSITIVE NR G Blood group antibodies identified - 05/16 12/29 11:45 Blood group antibodies identified JKA [facility] Comprehensive metabolic panel - 06/10/17 11:45 Serum [...] plasma ferritin measurement (mass/volume) 45.0 % 15.0-150.0 [id number] - 07/01/17 12:54 [id number] SPECIMEN AVAILABLE [facility] Complete blood count (CBC) with automate d [...] LEUKO REDUCED AS1 T RANSFUSED 10/04/17 0956 [facility] Blood type T Indirect antibody screen [facility] [place] 10/04/17 07:13 ABO+Rh group AP NR Transfusion band number [id number] NR Blood group antibody screen NEGATIVE NR G Capillary blood glucose measurement by g lucometer (mass/volume) - 10/04/17 10:39 Capillary blood glucose measurement by glucometer (mas s/volume) 354 mg/dL 70-110 Capillary blood glucose measurement by g lucometer (mass/volume) - 10/04/17 16:05 Capillary blood glucose measurement by glucometer (mas s/volume) 318 mg/dL 70-110 Whole blood hemoglobin and hematocrit [facility] - 10/04/17 16:19 Venous blood hemoglobin [...] culture - 10/05/17 00:43 Bacterial urine culture [id number] NRG COLONY COUNT >100,000/ML NRG FTX;REPORTABLE SENSITIVITY [...] by glucometer (mas s/volume) 356 mg/dL 70-110 [id number] - 11/03/17 13:10 [id number] SPECIMEN AVAILABLE [facility] Lipid 1996 panel - 11/06/17 11:40 Serum [...] CELLS LEUKO REDUCED AS1 T RANSFUSED 11/06/171947 [facility] Blood type T Indirect antibody screen pa myron - 11/06/17 11:40 ABO+Rh group AP [facility] Transfusion band number [id number] [facility] Blood group antibody screen NEGATIVE [facility] Comprehensive metabolic panel - 11/06/17 11:40 Serum [...] group AP NRG Transfusion band number [id number] NRG Blood group antibody screen NEGATIVE NR [...] g/dL 3.2-4.5 CALCIUM CORRECTED 9.4 mg/dL 8.5-10.1 [id number] - 04/29/18 16:30 Screening antinuclear antibody (IVON) [...] Non-Reactive Immunoglobulin G subclass panel - 16:30 [id number] 1631 % [id number] Immunoglobulin G1 measurement 994 [...] ABO+Rh group AP NRG Transfusion band number [id number] NRG Blood group antibody screen NEGATIVE NR [...] OF GROWTH Isolated NRG Bacterial blood culture [id number] NRG RML SENSITIVITY MAIN LAB - 05/20/18 [...] culture - 05/20/18 21:38 Bacterial urine culture [id number] NRG COLONY COUNT >100,000/ML NRG FTX;REPORTABLE RML [...] ABO+Rh group AP NRG Transfusion band number [id number] NRG Blood group antibody screen NEGATIVE NR [...] 05/22 16:05 NRG Bacterial catheter tip culture [id number] NRG RML Sensitivity Panel - 05/21/18 17:10 [...] ABO+Rh group AP NRG Transfusion band number [id number] NRG Blood group antibody screen NEGATIVE NR [...] culture - 05/28/18 15:15 Bacterial urine culture [id number] NRG COLONY COUNT 30,000 CFU/ML NRG FTX;REPORTABLE [...] culture - 05/30/18 21:50 Bacterial urine culture [id number] NRG COLONY COUNT 40,000 CFU/ML NRG FTX;REPORTABLE [...] G Measurement of body temperature 98.8 NRG [id number] - 05/31/18 06:00 Cytologic examination of Papanicolaou [...] 10:05 NRG C FUNGUS SPUTUM FLUID TISSUE [id number] N RG Arterial blood gas measurement - [...] ABO+Rh group AP NR Transfusion band number [id number] NR Blood group antibody screen NEGATIVE NR [...] CELLS LEUKO REDUCED AS1 T RANSFUSED 06/22/18 6685 [facility] Blood type T Indirect antibody screen [facility] [place] 06/21/18 10:52 ABO+Rh group AP NR Transfusion band number [id number] NRG Blood group antibody screen NEGATIVE NR [...] ABO+Rh group AP NRG Transfusion band number [id number] NRG Blood group antibody screen NEGATIVE NR [...] culture - 11/02/18 16:20 Bacterial blood culture [facility] Influenza virus A and B antigen detectio n - 11/02/18 16:43 FLU RESULT NEGATIVE FOR INFLUENZA A AND B ANTIGENS BY IA [facility] PT panel in platelet poor plasma by [...] culture - 11/02/18 17:38 Bacterial urine culture [id number] NRG COLONY COUNT >100,000/ML NRG FTX;REPORTABLE SUSCEPTIBILITY [...] ABO+Rh group AP NRG Transfusion band number [id number] NRG Blood group antibody screen NEGATIVE NR [...] pa myron - 12/27/18 13:45 WRISTBAND NUMBER [id number] NRG ABO+Rh group AP NRG Blood group [...] culture - 12/27/18 17:10 Bacterial urine culture [id number] NRG COLONY COUNT >100,000/ML NRG FTX;REPORTABLE SUSCEPTIBILITY [...] pa myron - 04/11/19 16:40 WRISTBAND NUMBER [id number] NRG ABO+Rh group AP NRG Blood group [...] culture - 06/05/19 16:55 Bacterial urine culture [id number] NRG COLONY COUNT >100,000/ML NRG FTX;REPORTABLE (PROBABLE COAG NEGATIVE STAPH) NRG FREE TEXT ENTRY 2 (PRELIM RAPID ID TESTING AT [facility] 06/06) NRG FREE TEXT ENTRY 3 RML [...] 7-25 CREATININE 2.10 mg/dL 0.50-0.99 eGFR NON-AFR. ICELANDIC 25 mL/min/1.73m2 > OR = 60 eGFR [...] pa myron - 06/27/19 14:55 WRISTBAND NUMBER [id number] NRG ABO+Rh group AP NRG Blood group [...] pa myron - 07/18/19 11:04 WRISTBAND NUMBER [id number] NRG ABO+Rh group AP NRG Blood group [...] pa myron - 07/27/19 15:48 WRISTBAND NUMBER [id number] NRG ABO+Rh group AP NRG Blood group [...] NRG Blood type T Indirect antibody screen sd myron - 09/05/19 11:02 WRISTBAND NUMBER [id number] NRG ABO+Rh group AP NRG Blood group [...] screen [facility] - 09/12/19 10:54 WRISTBAND NUMBER [id number] NRG ABO+Rh group AP [facility] Blood group antibody screen NEGATIVE NR G [id number] - 09/19/19 10:55 [id number] SPECIMEN AVAILABLE [facility] Whole blood basic metabolic panel - 09/13 [...] calculation of estimated glomerular filtration rate 22 [facility] Serum or plasma glucose measurement (mass/volume) 123 [...] ze mancillal - 09/27/19 18:50 WRISTBAND NUMBER [id number] NRG ABO+Rh group AP NRG Blood group [...] ze mancillal - 10/14/19 10:40 WRISTBAND NUMBER [id number] NRG ABO+Rh group AP NRG Blood group [...] culture - 10/15/19 12:30 Bacterial urine culture [id number] NRG COLONY COUNT >100,000/ML NRG RAPID ID PREL RAPID ID TEST AT [facility] 10/15 9:25 NRG ID CONFIRMATION RML CONFIRMED [...] pa myron - 10/21/19 09:50 WRISTBAND NUMBER [id number] NRG ABO+Rh group AP NRG Blood group antibody screen NEGATIVE NR G Complete blood count (CBC) with automate d white blood cell (WBC) differential - 10/26/19 08:40 Blood leukocytes automated count (number/volume) 6.7 10*3/uL 4.3-11.0 Blood erythrocytes automated count (number/volume) 3.27 10*6/uL 4.35-5.85 Venous blood hemoglobin measurement (mass/volume) 9.8 g/dL 11.5-16.0 Blood hematocrit (volume fraction) 31 % 35-52 Automated erythrocyte mean corpuscular volume 94 [ foz_us] 80-99 Automated erythrocyte mean corpuscular h emoglobin (mass per erythrocyte) 30 pg 25-34 Automated erythrocyte mean corpuscular h emoglobin concentration measurement (mass/volume) 32 g/dL 32-36 Automated erythrocyte distribution width ratio 13. 2 % 10.0- 14.5 Automated blood platelet count (count/volume) 226 10*3/uL 130-400 Automated blood platelet mean volume measurement 10.9 [foz_us] 7.4-10.4 Automated blood neutrophils/100 leukocytes 83 % 42-75 Automated blood lymphocytes/100 leukocytes 10 % 12-44 Blood monocytes/100 leukocytes 7 % [...] 0.0 10*3/uL 0.0-0.1 Comprehensive metabolic panel - 10/26/19 08:40 Serum or plasma sodium measurement (moles/volume) 135 mmol/L 135-145 Serum or plasma potassium measurement (moles/volume) 4.5 mmol/L 3.6-5.0 Serum or plasma chloride measurement (moles/volume) 92 mmol/L 98-107 Carbon dioxide 29 mmol/L 21-32 Serum or plasma anion gap determination (moles/volume) 14 mmol/L 5-14 Serum or plasma urea nitrogen measurement (mass/volume ) 52 mg/dL 7-18 Serum or plasma creatinine measurement (mass/volume) 2.96 mg/dL 0.60-1.30 Serum or plasma urea nitrogen/creatinine mass ratio 18 NRG Serum or plasma creatinine measurement w ith calculation of estimated glomerular filtration rate 16 NRG Serum or plasma glucose measurement (mass/volume) 471 mg/dL 70-105 Serum or plasma calcium measurement (mass/volume) 9.9 mg/dL 8.5-10.1 Serum or plasma total bilirubin measurement (mass/volu me) 0.7 mg/dL 0.1-1.0 Serum or plasma alkaline phosphatase momo surement (enzymatic activity/volume) 68 U/L 40-136 Serum or plasma aspartate aminotransfera se measurement (enzymatic activity/volume) 19 U/L 5-34 Serum or plasma alanine aminotransferase measurement (enzymatic activity/volume) 8 U/L 0-55 Serum or plasma protein measurement (mass/volume) 8.1 g/dL 6.4-8.2 Serum or plasma albumin measurement (mass/volume) 4.1 g/dL 3.2-4.5 CALCIUM CORRECTED 9.8 mg/dL 8.5-10.1 Serum or plasma phosphate measurement (m ass/volume) - 10/26/19 08:40 Serum or plasma phosphate measurement (mass/volume) 4.1 mg/dL 2.3-4.7 Blood lactic acid measurement (moles/vol ume) - 10/26/19 08:40 Blood lactic acid measurement (moles/volume) 2.18 mmol/L 0.50-2.00 PT panel in platelet poor plasma by coag ulation assay - 10/26/19 08:40 Prothrombin time (PT) in platelet poor plasma by coagu lation assay 13.5 s 12.2-14.7 INR in platelet poor plasma or blood by coagulation as say 1.0 0.8-1.4 Activated partial thromboplastin time (a PTT) in platelet poor plasma bycoagulation assay - 10/26/19 08:40 Activated partial thromboplastin time (a PTT) in platelet poor plasma bycoagulation assay 28 s 24-35 Serum or plasma troponin i.cardiac measu rement (mass/volume) - 10/26/19 08:40 Serum or plasma troponin i.cardiac measurement (mass/v olume) < ng/mL <0.028 Myoglobin, serum - 10/26/19 08:40 Myoglobin, serum 215.0 ng/mL 10.0-92.0 Serum or plasma C reactive protein measu rement (mass/volume) - 10/26/19 08:40 Serum or plasma C reactive protein measurement (mass/v olume) 0.11 mg/dL 0.00-0.50 Serum or plasma thyrotropin measurement by detection limit <=0.05 miu/l (units/volume) - 10/26/19 08:40 Serum or plasma thyrotropin measurement by detection limit <=0.05 miu/l (units/volume) 2.64 u[iU]/mL 0.35-4.94 RED CELLS LEUKO REDUCED AS1 - 10/26/19 0 8:40 RED CELLS LEUKO REDUCED AS1 R RAMIRO NRG Blood type T Indirect antibody screen pa myron - 10/26/19 08:40 WRISTBAND NUMBER [id number] NRG ABO+Rh group AP NRG Blood group antibody screen NEGATIVE NR G Complete urinalysis with reflex to cultu re - 10/26/19 08:55 Urine color determination YELLOW NRG Urine clarity [...] sediment by light microsco py LARGE NRG Crystals detection in urine sediment by light microsco py NONE NRG Casts detection in urine sediment by light microscopy NONE NRG Mucus detection in urine sediment by light microscopy NEGATIVE NRG Complete urinalysis with reflex to culture CULTURE PENDING NRG Arterial blood gas measurement - 0 09:03 Blood pCO2 41 mm[Hg] 35-45 Blood pO2 61 mm[Hg] 79-93 Arterial blood bicarbonate measurement (moles/volume) 32 mmol/L 23-27 Arterial blood base excess by calculation 7.9 mmol /L -2.5-2.5 Arterial blood oxygen saturation measurement 92 % 94-100 * Inhaled oxygen flow rate UNK NRG Arterial blood pH measurement with patient temperature correction 7.49 7.37-7.43 Arterial blood carbon dioxide, total measurement (mole s/volume) 33.1 mmol/L 21.0-31.0 Body site LEFT RADIAL NRG Assessment of wrist artery patency prior to arterial p uncture POSITIVE NRG Setting of ventilation mode NO NR G Measurement of body temperature 36.1 NRG Serum or plasma lactate measurement (mol es/volume) - 10/26/19 10:55 Serum or plasma lactate measurement (moles/volume) 3.63 mmol/L 0.50-2.00 Capillary blood glucose measurement by g lucometer (mass/volume) - 10/26/19 10:58 Capillary blood glucose measurement by glucometer (mas s/volume) 391 mg/dL 70-110 Encounters ACCT No. Visit Date/Time Discharge Status Pt. Type Provider Facility Loc./Unit Complaint [id number] 08/02/2019 14:00:00 08/02/2019 23:59: 59 CLS Outpatient JAMES TORRES [facility] [id number] 06/20/2019 13:20:00 Document Registration [id number] 01/03/2019 15:20:00 Document Registration [id number] 03/01/2018 12:00:00 Document Registration [id number] 05/18/2017 16:00:00 Document Registration [id number] 10/21/2019 09:12:00 23:59:59 CLS Outpatient SHIREEN AGARWAL V [facility] ONC [id number] 10/14/2019 10:19:00 00:01:00 DIS Outpatient SHIREEN AGARWAL V [facility] ONC [id number] 10/15/2019 13:20:00 21:40:00 DIS Inpatient GARCIA DOEMILIANOI Ari [facility] 4TH GENERAL WEAKNESS,FAILUR E TO THRIVE [id number] 09/27/2019 18:10:00 23:11:00 DIS Emergency KATERYNA KHOURY, MAUREEN Rashid [facility] ER SOB, HX CHF [id number] 09/26/2019 13:05:00 23:59:59 CLS Outpatient KRUNAL KHOURY PHD, LULA Clement [facility] LAB [id number] 09/12/2019 09:32:00 23:59:59 CLS Outpatient HARVEY KHOURY, NIA [facility] LAB [id number] 07/18/2019 10:26:00 00:01:00 DIS Outpatient KRUNAL KHOURY PHD, LULA Clement [facility] LAB [id number] 07/25/2019 19:00:00 13:33:00 DIS Inpatient EMILIANO GARCIA DOI V [facility] 4TH CHEST PAIN,CONFUSION,EL EV AMMONIA,SEVERE SEPSIS,PN [id number] 07/18/2019 09:29:00 23:59:59 CLS Outpatient BRIAN KHOURY, JAMES Champion [facility] RAD SCREENING [id number] 07/11/2019 07:44:00 00:01:00 DIS Outpatient SHIREEN AGARWAL V [facility] ONC [id number] 06/05/2019 18:45:00 14:45:00 DIS Inpatient KRISTINE KHOURY, TOMASA Narvaez [facility] CSD PNA, UTI, SEPSIS [id number] 05/30/2019 14:04:00 23:59:59 CLS Outpatient RACHELE JEFFERSON [facility] RAD [id number] 05/16/2019 13:41:00 23:59:59 CLS Outpatient MARY ANN CRUZ APRN [facility] LAB [id number] 05/07/2019 16:12:00 19:07:00 DIS Emergency MALLORIE FATIMA APRN [facility] ER CONFUSION, FREQUENT URI NATION [id number] 04/18/2019 14:38:00 00:01:00 DIS Outpatient KRUNAL KHOURY PHD, LULA Clement [facility] LAB [id number] 04/10/2019 16:30:00 11:40:00 DIS Inpatient BRIAN KHOURY, JAMES R [facility] 4TH N,V,DEHYDRATION,AFIB [id number] 04/04/2019 14:01:00 00:01:00 DIS Outpatient SHIREEN AGARWAL V [facility] ONC [id number] 01/10/2019 13:24:00 00:01:00 DIS Outpatient KRUNAL KHOURY PHD, LULA Clement [facility] LAB [id number] 01/05/2019 12:58:00 00:01:00 DIS Outpatient SHIREEN AGARWAL V [facility] ONC [id number] 12/27/2018 17:05:00 10:50:00 DIS Inpatient GARCIA DO MICHELLE V [facility] ICU ANEMIA,HHNK [id number] 11/02/2018 20:55:00 13:05:00 DIS Inpatient EMILIANO GARCIA DOI V [facility] 4TH SEPSIS,UTI,MIDLY EVEVAT ED TROPONIN,CHEST PAIN [id number] 10/11/2018 14:32:00 23:59:59 CLS Outpatient KRUNAL KHOURY PHD, LULA Clement [facility] LAB [id number] 10/05/2018 12:42:00 15:58:00 DIS Outpatient SHIREEN AGARWAL V [facility] ONC [id number] 09/27/2018 18:30:00 21:00:00 DIS Emergency KATERYNA KHOURY, MAUREEN Rashid [facility] ER SOA / SWELLING [id number] 09/22/2018 13:27:00 23:59:59 CLS Outpatient KRUNAL KHOURY PHD, LULA Clement [facility] LAB [id number] 09/17/2018 10:01:00 23:59:59 CLS Outpatient KRUNAL KHOURY PHD, LULA Clement [facility] LAB [id number] 08/30/2018 13:34:00 23:59:59 CLS Outpatient KRUNAL KHOURY PHD, LULA Clement [facility] LAB [id number] 08/17/2018 13:16:00 23:59:59 CLS Outpatient JAMES TORRES MD [facility] LAB [id number] 07/05/2018 19:14:00 23:59:59 CLS Outpatient JAMES TORRES MD [facility] LABNPT ANEMIA,CKD,DM,CIRRHOSIS [id number] 07/05/2018 08:00:00 23:59:59 CLS Outpatient SHIREEN AGARWAL V [facility] HH ANEMIA DM CKD CIRRHOSIS [id number] 06/18/2018 13:15:00 09:45:00 DIS Inpatient MICHELLE GARCIA DO, V [facility] IRF CRITICAL ILLNESS MYOPAT HY [id number] 05/20/2018 12:48:00 00:01:00 DIS Outpatient BRANDEN HAIDER MD, V [facility] ONC [id number] 05/30/2018 04:03:00 16:50:00 DIS Inpatient JAMES TORRES MD [facility] ICU FALL [id number] 05/28/2018 13:48:00 17:15:00 DIS Emergency MODESTO BALDERRAMA MD [facility] ER SOB [id number] 05/24/2018 13:02:00 15:25:00 DIS Inpatient TOMASA CARMONA MD [facility] 4TH ANEMIA,FEVER,NAUSEA,VOM ITING [id number] 05/05/2018 09:11:00 16:55:00 DIS Outpatient RACHELE JEFFERSON [facility] POOR VENOUS ACC ESS I87.8 [id number] 04/29/2018 11:33:00 23:59:59 CLS Outpatient KELLY KHOURY, TUBA [facility] LAB [id number] 03/20/2018 12:20:00 23:59:59 CLS Outpatient MACIEL WELCH APRN [facility] RAD PAIN IN LEFT LE G [id number] 03/09/2018 13:19:00 018 00:01:00 DIS Outpatient MELIZA KHOURY, BRANDEN Chapman [facility] ONC [id number] 02/10/2018 13:30:00 018 14:53:00 DIS Outpatient SHIREEN AGARWAL V [facility] ONC [id number] 02/12/2018 11:00:00 23:59:59 CLS Preadmit SABRINA ROSSI DO [facility] SDC POOR VENOUS ACCESS [id number] 02/11/2018 00:30:00 018 16:54:00 DIS Inpatient JAMES TORRES MD [facility] ICU CHEST PAIN,UNSTABLE ANG MAYANK;SEVERE ANEMIA;CHF [id number] 02/11/2018 06:53:00 018 23:59:59 CLS Outpatient SABRINA ROSSI DO [facility] PREOP POOR VENOUS ACCESS [id number] 01/12/2018 13:40:00 018 23:59:59 CLS Outpatient SHIREEN AGARWAL V [facility] ONC [id number] 11/17/2017 14:55:00 018 23:59:59 CLS Outpatient KELLY KHOURY, TUBA [facility] LAB [id number] 11/06/2017 15:30:00 018 03:52:00 DIS Inpatient KRISTINE KHOURY, TOMASA Narvaez [facility] 4TH ANEMIA/TRANSFUSION [id number] 11/06/2017 12:00:00 018 23:59:59 CLS Outpatient Wei ALCARAZ MD [facility] LAB [id number] 10/20/2017 11:12:00 018 00:01:00 DIS Outpatient SHIREEN AGARWAL V [facility] ONC [id number] 10/03/2017 23:50:00 018 13:33:00 DIS Inpatient TOMASA CARMONA MD [facility] 4TH ANEMIA,CHEST PAIN, A FI B, HYPERGLYCEMIA, [id number] 09/12/2017 22:15:00 018 14:45:00 DIS Inpatient JAMES TORRES MD [facility] ICU CHEST PAIN [id number] 07/17/2017 14:09:00 018 10:19:00 DIS Outpatient MELIZA KHOURY, BRANDEN Chapman [facility] ONC [id number] 07/17/2017 09:59:00 018 13:30:00 DIS Outpatient CARMINE BORRERO DO [facility] ENDO GI BLEED [id number] 07/16/2017 15:00:00 018 15:00:00 CAN Preadmit CARMINE BORRERO DO, V [facility] PREOP GI BLEED [id number] 07/01/2017 12:12:00 018 09:04:00 DIS Outpatient SHIREEN AGARWAL V [facility] ONC [id number] 06/16/2017 10:05:00 018 00:01:00 DIS Outpatient SHIREEN AGARWAL V [facility] ONC [id number] 06/14/2017 14:39:00 017 23:59:59 CLS Outpatient RACHELE JEFFERSON [facility] LAB ANEMIA,SHORTNES S OF BREATH [id number] 05/21/2017 12:23:00 017 23:59:59 CLS Outpatient SABRINA ROSSI DO [facility] RAD ABD PAIN, ANEMIA [id number] 05/12/2017 09:09:00 017 23:59:59 CLS Outpatient JAMES TORRES MD [facility] LAB [id number] 04/07/2017 06:54:00 017 23:59:59 CLS Outpatient SABRINA ROSSI DO [facility] ENDO INFLAMMATION [id number] 04/06/2017 11:00:00 017 11:22:00 DIS Outpatient SABRINA ROSSI DO [facility] PREOP CAPSULE ENDO [id number] 03/04/2017 10:21:00 017 00:01:00 DIS Outpatient SHIREEN AGARWAL [facility] ONC [id number] 03/02/2017 07:20:00 017 23:59:59 CLS Outpatient SABRINA ROSSI DO [facility] ENDO ANEMIA [id number] 02/23/2017 05:40:00 017 11:52:00 DIS Outpatient SABRINA ROSSI DO [facility] PREOP ANEMIA [id number] 01/29/2017 09:44:00 017 15:52:00 DIS Inpatient JAMES TORRES MD [facility] ICU A-FIB WITH RVR [id number] 01/02/2017 06:29:00 017 08:45:00 DIS Outpatient SABRINA ROSSI DO [facility] ENDO ANEMIA; OCCULT POSITIVE STOOLS [id number] 12/31/2016 11:10:00 017 10:01:00 DIS Outpatient MACIEL WELCH APRN [facility] LAB ANEMIA [id number] 12/31/2016 12:53:00 017 23:59:59 CLS Outpatient SABRINA ROSSI DO [facility] PREOP ANEMIA, OCCULT POSITIVE STOOL [id number] 12/17/2016 09:30:00 017 23:59:59 CLS Preadmit KIERAN KHOURY, Wei BRANDON [facility] CARD AFIB,PSVT [id number] 10/10/2016 08:46:00 017 00:01:00 DIS Outpatient Wei ALCARAZ MD [facility] CARD AFIB,PSVT [id number] 10/24/2016 08:37:00 017 00:01:00 DIS Outpatient SHIREEN AGARWAL V [facility] ONC [id number] 10/24/2016 08:41:00 017 23:59:59 CLS Outpatient BERNY ALCARAZ MD [facility] LAB [id number] 09/15/2016 12:15:00 017 23:59:59 CLS Outpatient BERNY ALCARAZ MD [facility] LAB [id number] 11/27/2015 15:28:00 016 00:01:00 DIS Outpatient SHIREEN AGARWAL V [facility] ONC [id number] 10/04/2015 13:17:00 016 23:59:59 CLS Outpatient SHIREEN AGARWAL V [facility] ONC [id number] 06/12/2015 11:11:00 015 00:01:00 DIS Outpatient SHIREEN AGARWAL V [facility] ONC [id number] 06/04/2015 15:34:00 015 23:59:59 CLS Preadmit RACHELE JEFFERSON [facility] ONC [id number] 03/29/2015 11:35:00 015 23:59:59 CLS Outpatient WU DIOR MD [facility] LAB [id number] 03/15/2015 14:54:00 23:59:59 CLS Outpatient WU DIOR MD [facility] LAB [id number] 11/23/2014 13:42:00 015 00:01:00 DIS Outpatient SHIREEN AGARWAL [facility] ONC [id number] 10/05/2014 13:42:00 23:59:59 CLS Outpatient CLAUDE GABRIEL MD [facility] LAB [id number] 10/05/2014 12:00:00 23:59:59 CLS Outpatient CLAUDE GABRIEL MD [facility] RAD POST SPOT URINE [id number] 07/17/2014 14:31:00 23:59:59 CLS Outpatient SHIREEN AGARWAL [facility] ONC [id number] 05/24/2014 13:33:00 014 23:59:59 CLS Outpatient LINDA KHOURY FACC, ARNIE SHAW CC DS [facility] LAB [id number] 04/03/2014 14:00:00 014 00:01:00 DIS Outpatient SHIREEN AGARWAL [facility] ONC [id number] 03/24/2014 06:46:00 014 09:55:00 DIS Outpatient TONIE CRAWFORD MD [facility] SDC SCREENING; ANEMIA [id number] 03/23/2014 07:22:00 014 23:59:59 CLS Outpatient TONIE CRAWFORD MD [facility] PREOP SCREENING; ANEMIA [id number] 03/02/2014 09:01:00 014 16:00:00 DIS Outpatient LINDA KHOURY FACC, ARNIE GONZALESP CC DS [facility] CATH CP,CAD,HTN [id number] 02/07/2014 07:52:00 014 23:59:59 CLS Outpatient LINDA KHOURY FACC, ARNIE GONZALESP CC DS [facility] CARD AFIB [id number] 03/31/2013 08:55:00 013 23:59:59 [facility] Outpatient CHICHI RIVAS [facility] RAD MID EPIGASTRIC PAIN [id number] 10/26/2019 08:54:00 Document Registration [id number] 10/05/2014 11:59:00 Document Registration [id number] 10/05/2014 11:59:00 Document Registration [id number] 10/05/2014 11:59:00 Document Registration [id number] 08/24/2014 14:23:00 Document Registration [id number] 08/21/2014 07:51:00 Document Registration [id number] 04/03/2012 14:05:00 Document Registration
[2019-10-26] MEDS ORDERED: LACTATED RINGERS 1,000 ML IV SCH (11:45)
[2019-10-26] MEDS ORDERED: CATHETER FLUSH 10 ML SYR IV PRN (11:45)
[2019-10-26] MEDS ORDERED: ONDANSETRON 4 MG/2 ML (SDV) Z0FRAN IV PRN (11:45)
[2019-10-26 12:00] VITALS: BP 149/47
[2019-10-26] MEDS ORDERED: inSUlin ASPART (NovoLOG) 1 UNIT/0.01 ML (CHARGE PER UNIT) SC SCH (12:00)
[2019-10-26 12:10] LABS: CHOLESTEROL 246 MG/DL (< 200); HDL CHOLESTEROL 73 MG/DL (40-60); TRIGLYCERIDES 117 MG/DL (<150); VLDL CHOLESTEROL 23 MG/DL (5-40)
[2019-10-26 13:00] VITALS: BP 135/44
[2019-10-26 14:00] VITALS: BP 108/40
[2019-10-26 14:23] LABS: HEMOGLOBIN 8.9 G/DL (11.5-16.0)
[2019-10-26 15:00] VITALS: BP 141/56
[2019-10-26 16:00] VITALS: BP 113/55
--- NOTE | 2019-10-26 16:50 | NUR ---
I WAS UNABLE TO GET INFORMATION FROM THE PT WHEN I WENT TO HER ROOM @ 1400. I SPOKE WITH [facility] AND REQUESTED A MED LIST TO BE FAXED OVER. I WILL UPDATE THE MED REC WHEN I HAVE THE MED LIST AND HOPEFULLY I CAN SPEAK WITH THE PT AT THAT TIME Addendum: 10/27/19 at 1041 by NITHIN KRUSE [facility] I WENT TO TALK WITH THE PT BUT SHE WAS NOT ABLE TO ANSWER ANY OF QUESTIONS, PATIENTS DAUGHTER WAS AT HER BEDSIDE BUT WAS UNSURE OF MEDICATIONS. I RECEIVED A MED LIST FROM [facility] AND FROM [facility] AND USED THOSE TO COMPLETE THE MED REC THE FOLLOWING [facility] PROMETHAZINE 25MG #30/PRN 06-30-2019 METOCLOPRAMIDE 10MG #60/PRN 07-13-2019 TIZANIDINE 2MG #90/PRN 08-17-2019 METOLAZONE #24 08-29-2019 MAGNESIUM 400MG #180/90DS 09-05-2019 NOVOLIN N #1 VIAL 09-06-2019 NOVOLOG FLEXPEN #15/90DS 09-07-2019 LEVOTHYROXINE 125MCG #30/30DS- I DID DOCUMENT PAST DUE FILL ON THE MED REC 09-11-2019 FOLIC ACID 1MG #30/30DS- I DID DOCUMENT THE PAST DUE FILL ON THE MED REC 09-11-2019 BUMEX 2MG #60 (TAKES 1 TAB DAILY AND 1 TAB PRN) 10-09-2019 OMEPRAZOLE 40MG #60/30DS 10-18-2019 TRAMADOL 50MG #84/28DS THE MED REC THAT WAS PREVIOUSLY DONE ON 07-26-2019 METOPROLOL TART 25MG TAB BID WAS FILLED 03-10-2019 #60, THIS HAS NOT BEEN FILLED SINCE THAT DATE BUT FROM [facility] IT DOES STILL SHOW ON THE ACTIVE MED LIST. DUE TO THE PAST DUE FILL DATE I DID NOT INCLUDE THIS ON THE MED REC OTC MEDS: TYLENOL ZYRTEC GLUCOSAMINE W/ CHONDROITIN
[2019-10-26] MEDS ORDERED: BISACODYL 10 MG SUPP (DULCOLAX) PR PRN (17:45)
[2019-10-26] MEDS ORDERED: LORazepam INJ 2 MG/ML (ATIVAN) VIAL IVP PRN (17:45)
[2019-10-26] MEDS ORDERED: SALIVA STIMULANT MOUTH SPRAY (BIOTENE) 1.5 OZ MM PRN (17:45)
[2019-10-26] MEDS ORDERED: PROMETHAZINE INJ 25 MG/ML (PHENERGAN) AMP IVP PRN (17:45)
[2019-10-26] MEDS ORDERED: ACETAMINOPHEN 650 MG SUPP (TYLENOL) PR PRN (17:45)
[2019-10-26] MEDS ORDERED: SCOPOLAMINE 1.5 MG (TRANSDERM-SCOP) PATCH TOP SCH (17:45)
[2019-10-26] MEDS ORDERED: morphine INJ 4 MG/ML 1 ML (VIAL/SYRINGE) IV PRN (17:45)
[2019-10-26] MEDS ORDERED: ARTIFICAL TEARS 0.4 ML UNIT DOSE (REFRESH PLUS) OU PRN (17:45)
--- NOTE | 2019-10-26 19:20 | History & Physical ---
HPI History of Present Illness: 64 yo F that was found unresponsive and was brought to ER by EMS. Spoke with Dorian on the phone and he states that she was having left arm weakness and was talking slow yesterday and he asked her if she had a stroke and she said she didn't know but didn't want to come to the ER yesterday. This AM he woke up and found her unresponsive by their bed. Upon arrival to ICU patient was unresponsive but maintaining her airway. She was not responding to pain and was not blinking or having any eye movements. She was also having seizure like activity which was new from the ER. Spoke with Jose and Daughter Inocencia and they were in agreement to make patient DNR and going to talk about goals of care with the family. Source: family, spouse Exam Limitations: clinical condition Date seen by provider: October 26, 2019 Time Seen by Provider: 13:00 Attending Physician James Wilson MD PCP James Wilson MD Consult Date of Admission October 26, 2019 at 10:18 Home Medications Home Medications Reviewed patient Home Medication Reconciliation performed by pharmacy medication reconciliations agricultural research technician and/or nursing. Patients Allergies have been reviewed. Allergies Coded Allergies: Yaivbgr-Wan-Yxz Reductase Inhibitor (Verified Allergy, Intermediate, GI UPSET, N/V, 11/06/17) cefadroxil (Unverified Allergy, Mild, 01/01/17) Sulfa (Sulfonamide Antibiotics) (Verified Allergy, Unknown, 06/18/18) ZPA-Avnhow-Smamdy Hx Patient Social History Living Status: Lives with spouse Alcohol Use: Denies Use Recreational Drug Use: No Smoking Status: Former Smoker Type Used: Cigarettes 2nd Hand Smoke Exposure: No Recent Foreign Travel: No Contact w/other who traveled: No Recent Hopitalizations: Yes Recent Infectious Disease Expo: No Immunizations Up To Date Tetanus Booster (TDap): Unknown Date of Pneumonia Vaccine: May 16, 2019 Date of Influenza Vaccine: Apr 15, 2019 Past Medical History PMHx: Paroxysmal Atrial fibrillation Gastric antral vascular ectasia (GAVE) CAD NIDDM Chronic Microcytic anemia, transfusion dependent HTN HLD CHF CKD MO (Nstemi x3) s/p CABG Hypothyroidism Anxiety Disorder Family Medical History Significant Family History: Hypertension, Stroke, Other Conditions/Hx Family History: Arthritis G8 BROTHER Completed stroke 19 MOTHER FH: anemia 19 MOTHER FH: lupus G8 SISTER FH: throat cancer 19 FATHER Hypertension G8 SISTER Myocardial infarction 19 MOTHER Thyroid disease 19 MOTHER G8 SISTER Review of Systems (CHC) Constitutional: other (Unable to obtain due to unresponsive) Reviewed Test Results Reviewed Test Results Lab Laboratory Tests Test 10/26/19 08:40 10/26/19 08:50 10/26/19 08:55 10/26/19 09:03 Range/Units White Blood Count 6.7 4.3-11.0 10^3/uL Red Blood Count 3.27 L 4.35-5.85 10^6/uL Hemoglobin 9.8 #L 11.5-16.0 G/DL Hematocrit 31 L 35-52 % Mean Corpuscular Volume 94 80-99 FL Mean Corpuscular Hemoglobin 30 25-34 PG Mean Corpuscular Hemoglobin Concent 32 32-36 G/DL Red Cell Distribution Width 13.2 10.0-14.5 % Platelet Count 226 130-400 10^3/uL Mean Platelet Volume 10.9 H 7.4-10.4 FL Neutrophils (%) (Auto) 83 H 42-75 % Lymphocytes (%) (Auto) 10 L 12-44 % Monocytes (%) (Auto) 7 0-12 % Eosinophils (%) (Auto) 0 0-10 % Basophils (%) (Auto) 0 0-10 % Neutrophils # (Auto) 5.6 1.8-7.8 X 10^3 Lymphocytes # (Auto) 0.7 L 1.0-4.0 X 10^3 Monocytes # (Auto) 0.5 0.0-1.0 X 10^3 Eosinophils # (Auto) 0.0 0.0-0.3 10^3/uL Basophils # (Auto) 0.0 0.0-0.1 10^3/uL Prothrombin Time 13.5 12.2-14.7 SEC INR Comment 1.0 0.8-1.4 Activated Partial Thromboplast Time 28 24-35 SEC Sodium Level 135 135-145 MMOL/L Potassium Level 4.5 3.6-5.0 MMOL/L Chloride Level 92 L 98-107 MMOL/L Carbon Dioxide Level 29 21-32 MMOL/L Anion Gap 14 5-14 MMOL/L Blood Urea Nitrogen 52 H 7-18 MG/DL Creatinine 2.96 H 0.60-1.30 MG/DL Estimat Glomerular Filtration Rate 16 BUN/Creatinine Ratio 18 Glucose Level 471 *H 70-105 MG/DL Lactic Acid Level 2.18 *H 0.50-2.00 MMOL/L Calcium Level 9.9 8.5-10.1 MG/DL Corrected Calcium 9.8 8.5-10.1 MG/DL Phosphorus Level 4.1 2.3-4.7 MG/DL Total Bilirubin 0.7 0.1-1.0 MG/DL Aspartate Amino Transf (AST/SGOT) 19 5-34 U/L Alanine Aminotransferase (ALT/SGPT) 8 0-55 U/L Alkaline Phosphatase 68 40-136 U/L Myoglobin 215.0 H 10.0-92.0 NG/ML Troponin I < 0.028 <0.028 NG/ML C-Reactive Protein High Sensitivity 0.11 0.00-0.50 MG/DL Total Protein 8.1 6.4-8.2 GM/DL Albumin 4.1 3.2-4.5 GM/DL Procalcitonin 0.07 <0.10 NG/ML TSH Routt Testing 2.64 0.35-4.94 UIU/ML Triglycerides Level 117 <150 MG/DL Cholesterol Level 246 H < 200 MG/DL LDL Cholesterol Direct 165 H 1-129 MG/DL VLDL Cholesterol 23 5-40 MG/DL HDL Cholesterol 73 H 40-60 MG/DL Urine Color YELLOW Urine Clarity CLEAR Urine pH 6.0 5-9 Urine Specific [place] 1.010 L 1.016-1.022 Urine Protein NEGATIVE NEGATIVE Urine Glucose (UA) NEGATIVE NEGATIVE Urine Ketones NEGATIVE NEGATIVE Urine Nitrite NEGATIVE NEGATIVE Urine Bilirubin NEGATIVE NEGATIVE Urine Urobilinogen 0.2 < = 1.0 MG/DL Urine Leukocyte Esterase NEGATIVE NEGATIVE Urine RBC (Auto) NEGATIVE NEGATIVE Urine RBC NONE /HPF Urine WBC NONE /HPF Urine Crystals NONE /LPF Urine Bacteria LARGE H /HPF Urine Casts NONE /LPF Urine Mucus NEGATIVE /LPF Urine Culture Indicated CULTURE PENDING Blood Gas Puncture Site LEFT RADIAL Blood Gas Patient Temperature 36.1 Arterial Blood pH 7.49 H 7.37-7.43 Arterial Blood Partial Pressure CO2 41 35-45 MMHG Arterial Blood Partial Pressure O2 61 L 79-93 MMHG Arterial Blood HCO3 32 H 23-27 MMOL/L Arterial Blood Total CO2 33.1 H 21.0-31.0 MMOL/L Arterial Blood Oxygen Saturation 92 L 94-100 % Arterial Blood Base Excess 7.9 H -2.5-2.5 MMOL/L Osvaldo Test POSITIVE Blood Gas Ventilator Setting NO Blood Gas Inspired Oxygen UNK Test 10/26/19 10:55 10/26/19 10:58 10/26/19 12:50 10/26/19 14:02 Range/Units Lactic Acid Level 3.63 *H 2.30 *H 0.50-2.00 MMOL/L Glucometer 391 H 334 H 70-110 MG/DL Hemoglobin 8.9 L 11.5-16.0 G/DL Hematocrit 28 L 35-52 % Physical Exam-(CHC) Physical Exam Vital Signs VS - Last 72 Hours, by Label 10/26/19 10/26/19 10/26/19 10/26/19 08:36 11:11 11:26 11:30 Temp 36.1 Pulse 76 76 94 77 Resp 16 16 13 B/P (MAP) 156/52 (86) 152/58 112/66 (81) Pulse Ox 93 93 94 O2 Delivery Room Air Room Air Room Air 10/26/19 10/26/19 10/26/19 10/26/19 12:00 12:30 13:00 14:00 Pulse 77 80 84 87 Resp 12 15 19 B/P (MAP) 149/47 (81) 135/44 (74) 108/40 (62) Pulse Ox 96 96 93 O2 Delivery Room Air Room Air Room Air 10/26/19 10/26/19 10/26/19 15:00 16:00 16:19 Temp 36.4 Pulse 80 92 Resp 14 15 B/P (MAP) 141/56 (84) 113/55 (74) Pulse Ox 93 94 O2 Delivery Room Air Room Air Capillary Refill : Less Than 3 SecondsLess Than 3 Seconds General Appearance: other (Unresponsive adult female) HEENT: other (Pupils sluggish) Respiratory: chest non-tender, normal breath sounds, no respiratory distress, no accessory muscle use Cardiovascular: normal peripheral pulses, other (1+ pitting edema bilaterally) Gastrointestinal: normal bowel sounds, soft Extremities: pedal edema Neurologic/Psychiatric: other (Does not follow any commads, pupils sluggish, not withdrawing from pain, bilateral twitching ) Skin: normal color Assessment/Plan Assessment/Plan Admission Status: Inpatient Order (span 2 midnights) Reason for Inpatient Admission: Requiring ICU stay for hourly vitals and workup (1) Altered mental status Status: Acute Assessment & Plan: - Dx includes: CVA vs medication induced vs infection. Started on Sepsis protocol given LA, no improvement with fluid resuscitation, patient now having seizure like activity in the ICU. Called family and patient was made DNR. Patient on antibiotics and fluid resuscitation. Patient unable to get MRI due to seizure like activity. Qualifiers: Qualified Codes: R40.2431 - Branford coma scale score 3-8, in the field [emt or ambulance] (2) Seizure-like activity Status: Acute Assessment & Plan: - Likely 2/2 to probable CVA (3) Sepsis Status: Acute Qualifiers: Qualified Codes: A41.9 - Sepsis, unspecified organism; R65.20 - Severe sepsis without septic shock; N17.9 - Acute kidney failure, unspecified (4) Lzjbb-bh-ovgcsej kidney injury Status: Acute Qualifiers: (5) Cirrhosis Status: Chronic Qualifiers: Qualified Codes: K74.69 - Other cirrhosis of liver (6) Atrial fibrillation Status: Chronic Assessment & Plan: - Unable to tolerate anticoagulation due to GAVE and t ransfusion dependent anemia Qualifiers: Qualified Codes: I48.0 - Paroxysmal atrial fibrillation (7) Insulin dependent diabetes mellitus Status: Chronic (8) Hyperglycemia Status: Acute (9) Transfusion-dependent anemia Status: Chronic (10) Coronary artery disease Status: Chronic (11) 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 (12) Poor prognosis Status: Acute Assessment & Plan: - 1750: Patient made comfort care, daughter at bedside Clinical Quality Measures DVT/VTE Risk/Contraindication: Risk Factor Score Per Nursin RFS Level Per Nursing on Admit: 4+=Very High Copy Copies To 1: JAMES WILSON MD, HOLLY R MD October 26, 2019 19:20
--- NOTE | 2019-10-27 09:03 | NUR ---
PALLIATIVE CARE RN in to see patient. She is alert today and complaining of an itch on her behind. I assisted her in rolling to her side and assessed the area of itch. Noted that she does not have skin breakdown but does have a very tiny almost imperceptible crack at the top of her "crack". Spoke to THOMPSON Aponte regarding this. In addition to being alert patient is oriented to self. She is unable to voice reason for admission or even her location at this time. Daughter at bedside. Patient is currently CCMO due to a change in condition after admission and being highly suspicious for a massive bran hemorrhage. Will need to discuss POC with Dr. Wilson due to the improved status and ability to communicate at this time. Patient has longstanding dependence of transfusions due to Anemia and GAVE dz. Jack continue to offer assistance as needed for POC and discharge planning.
[2019-10-27] MEDS ORDERED: LEVO125T6 PO (10:22)
[2019-10-27 13:08] LABS: BASOPHILS % (AUTO) 0 % (0-10); EOSINOPHILS # (AUTO) 0.1 10^3/uL (0.0-0.3); EOSINOPHILS % (AUTO) 1 % (0-10); HEMATOCRIT 27 % (35-52); HEMOGLOBIN 8.6 G/DL (11.5-16.0); LYMPHOCYTES % (AUTO) 15 % (12-44); MEAN CORPUSCULAR HEMOGLOBIN 30 PG (25-34); MEAN CORPUSCULAR HGB CONC 32 G/DL (32-36); MEAN CORPUSCULAR VOLUME 94 FL (80-99); MEAN PLATELET VOLUME 10.1 FL (7.4-10.4); MONOCYTES # (AUTO) 0.9 X 10^3 (0.0-1.0); MONOCYTES % (AUTO) 13 % (0-12); NEUTROPHILS # (AUTO) 4.7 X 10^3 (1.8-7.8); NEUTROPHILS % (AUTO) 70 % (42-75); PLATELET COUNT 176 10^3/uL (130-400); RED CELL DISTRIBUTION WIDTH 13.4 % (10.0-14.5); WHITE BLOOD COUNT 6.7 10^3/uL (4.3-11.0)
[2019-10-27] MEDS: NS IV 1000 ML 1,000 ML IV SCH (13:12)
[2019-10-27] MEDS: cefTRIAXone FOR IV USE 1,000 MG in WATER (STERILE) FOR INJECTION 10 ML IV SCH (13:13)
[2019-10-27 13:32] LABS: ALBUMIN 3.6 GM/DL (3.2-4.5); BILIRUBIN,TOTAL 0.8 MG/DL (0.1-1.0); CALCIUM 9.3 MG/DL (8.5-10.1); CREATININE SERUM 2.65 MG/DL (0.60-1.30)
--- NOTE | 2019-10-27 14:15 | Diagnostic Imaging Report ---
CLINICAL INDICATION: Patient came to Emergency Room yesterday unresponsive. EXAM: MRI of the brain performed without IV contrast. Sequences include axial DWI, ADC map, axial T2, axial FLAIR, axial T1, axial gradient echo, and sagittal T1. COMPARISON: Head CT without contrast dated 10/26/2019. FINDINGS: There is motion artifact which obscures the axial FLAIR sequence. There is no evidence of acute cerebral infarct, intracranial hemorrhage, or gross mass effect. There is a small area of T2 shine-through involving the right middle cerebellar peduncle which demonstrates increased T2 signal measures roughly 5 mm in greatest axial dimension. There is no intracranial hemorrhage, brain herniation or midline shift. There is focal, patchy and confluent areas of high T2 signal white matter changes seen throughout both cerebral hemispheres and periventricular regions. There is no hydrocephalus. Basal cisterns are unremarkable. The extracranial soft tissues, skull, and orbits are unremarkable. Paranasal sinuses and mastoid air cells are clear. IMPRESSION: 1: There is no acute intracranial process. There is no acute cerebral infarct. 2: Chronic small vessel ischemic disease and leukoaraiosis. Dictated by: Dictated on workstation # [id number]
--- NOTE | 2019-10-27 17:29 | Progress Note ---
Subjective Subjective/Events-last exam Patient started talking early this AM. Still having some tremors but improved. extremely weak. Tolerating PO fluids and passed bedside swallow. Review of Systems Pulmonary: Dyspnea Cardiovascular: No: Chest Pain, Palpitations Gastrointestinal: No: Abdominal Pain Neurological: Weakness, Confusion Focused Exam Lactate Level 10/26/19 08:40: Lactic Acid Level 2.18*H 10/26/19 10:55: Lactic Acid Level 3.63*H 10/26/19 12:50: Lactic Acid Level 2.30*H Objective Exam Last Set of Vital Signs Vital Signs Date Time Temp Pulse Resp B/P (MAP) Pulse Ox O2 Delivery O2 Flow Rate FiO2 10/27/19 08:00 Room Air 10/26/19 20:10 94 10/26/19 16:19 36.4 10/26/19 16:00 92 15 113/55 (74) Capillary Refill : Less Than 3 SecondsLess Than 3 Seconds I&O Intake and Output 10/27/19 00:00 Intake Total 0 ml Output Total 1625 ml Balance -1625 ml Intake Oral 0 ml Output Urine Total 1625 ml Daily Weight Change Unsure/Unresponsive General: Alert, No Acute Distress Lungs: Clear to Auscultation, Normal Air Movement Heart: Regular Rate, Other (systolic murmur) Abdomen: Normal Bowel Sounds, Soft, No Tenderness Neuro: Other (UE 2/5 strength L>R, moving LE but unable to lift off the bed) Results/Procedures Lab Laboratory Tests 10/27/19 13:00: White Blood Count 6.7, Red Blood Count 2.86L, Hemoglobin 8.6L, Hematocrit 27L, Mean Corpuscular Volume 94, Mean Corpuscular Hemoglobin 30, Mean Corpuscular Hemoglobin Concent 32, Red Cell Distribution Width 13.4, Platelet Count 176, Mean Platelet Volume 10.1, Neutrophils (%) (Auto) 70, Lymphocytes (%) (Auto) 15, Monocytes (%) (Auto) 13H, Eosinophils (%) (Auto) 1, Basophils (%) (Auto) 0, Neutrophils # (Auto) 4.7, Lymphocytes # (Auto) 1.0, Monocytes # (Auto) 0.9, Eosinophils # (Auto) 0.1, Basophils # (Auto) 0.0, Sodium Level 137, Potassium Level 4.0, Chloride Level 96L, Carbon Dioxide Level 31, Anion Gap 10, Blood Urea Nitrogen 50H, Creatinine 2.65H, Estimat Glomerular Filtration Rate 18, B UN/Creatinine Ratio 19, Glucose Level 366H, Calcium Level 9.3, Corrected Calcium 9.6, Total Bilirubin 0.8, Aspartate Amino Transf (AST/SGOT) 18, Alanine Aminotransferase (ALT/SGPT) 8, Alkaline Phosphatase 66, Total Protein 7.0, Albumin 3.6 Microbiology 10/26/19 MRSA Screen - Final, Complete MRSA not isolated 10/26/19 Blood Culture - Preliminary, Resulted No growth 10/26/19 Urine Culture - Final, Complete Strep anginosus Assessment/Plan Assessment/Plan (1) Altered mental status Status: Acute Assessment & Plan: - Dx includes: CVA vs medication induced vs infection. Started on Sepsis protocol given LA, no improvement with fluid resuscitation, patient now having seizure like activity in the ICU. Called family and patient was made DNR. Patient on antibiotics and fluid resuscitation. Patient unable to get MRI due to seizure like activity. 10/26: Patient awake this AM. Will get MRI, Ammonia level, d/c comfort care at this time, PT/OT/Speech ordered Qualifiers: Qualified Codes: R40.2431 - Kimball coma scale score 3-8, in the field [emt or ambulance] (2) Seizure-like activity Status: Acute Assessment & Plan: - Likely 2/2 to probable CVA (3) Sepsis Status: Acute Assessment & Plan: 10/26: Started on Rocephin to cover for UTI Qualifiers: Qualified Codes: A41.9 - Sepsis, unspecified organism; R65.20 - Severe sepsis without septic shock; N17.9 - Acute kidney failure, unspecified (4) Dwsmb-vc-wqzjegl kidney injury Status: Acute Assessment & Plan: 09/27: Gentle hydration, monitor BMP Qualifiers: (5) Cirrhosis Status: Chronic Qualifiers: Qualified Codes: K74.69 - Other cirrhosis of liver (6) Atrial fibrillation Status: Chronic Assessment & Plan: - Unable to tolerate anticoagulation due to GAVE and transfusion dependent anemia Qualifiers: Qualified Codes: I48.0 - Paroxysmal atrial fibrillation (7) Insulin dependent diabetes mellitus Status: Chronic (8) Hyperglycemia Status: Acute (9) Transfusion-dependent anemia Status: Chronic (10) Coronary artery disease Status: Chronic Qualifiers: Qualified Codes: I25.10 - Atherosclerotic heart disease of [place] coronary artery without angina pectoris (11) 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 (12) Poor prognosis Status: Acute Assessment & Plan: - 175: Patient made comfort care, daughter at bedside 10/26: Comfort Care d/c Clinical Quality Measures DVT/VTE Risk/Contraindication: Risk Factor Score Per Nursin RFS Level Per Nursing on Admit: 4+=Very High JAMES TORRES MD October 27, 2019 17:29
[2019-10-27 19:39] VITALS: BP 131/65
[2019-10-27] MEDS: PANTOPRAZOLE 40 MG (PROTONIX) TAB PO SCH (20:57)
[2019-10-27] MEDS: ACETAMINOPHEN 325 MG TABLET PO PRN (20:58)
[2019-10-27] MEDS ORDERED: NON-FORMULARY MEDICATION 1 EA EA (Omeprazole 40 MG) PO SCH (21:00)
[2019-10-27] MEDS: inSUlin ASPART (NovoLOG) 1 UNIT/0.01 ML (CHARGE PER UNIT) SC SCH (21:33)
[2019-10-28] VITALS (8 sets, daily range): BP systolic 111–171; BP diastolic 54–67
[2019-10-28 06:20] LABS: BASOPHILS % (AUTO) 1 % (0-10); EOSINOPHILS # (AUTO) 0.2 10^3/uL (0.0-0.3); EOSINOPHILS % (AUTO) 4 % (0-10); HEMATOCRIT 25 % (35-52); LYMPHOCYTES # (AUTO) 1.2 X 10^3 (1.0-4.0); LYMPHOCYTES % (AUTO) 27 % (12-44); MEAN CORPUSCULAR HEMOGLOBIN 31 PG (25-34); MEAN CORPUSCULAR HGB CONC 32 G/DL (32-36); MEAN CORPUSCULAR VOLUME 95 FL (80-99); MEAN PLATELET VOLUME 10.3 FL (7.4-10.4); MONOCYTES # (AUTO) 0.7 X 10^3 (0.0-1.0); MONOCYTES % (AUTO) 17 % (0-12); NEUTROPHILS # (AUTO) 2.2 X 10^3 (1.8-7.8); NEUTROPHILS % (AUTO) 51 % (42-75); PLATELET COUNT 143 10^3/uL (130-400); RED CELL DISTRIBUTION WIDTH 13.1 % (10.0-14.5); WHITE BLOOD COUNT 4.4 10^3/uL (4.3-11.0)
[2019-10-28] MEDS: inSUlin ASPART (NovoLOG) 1 UNIT/0.01 ML (CHARGE PER UNIT) SC SCH ×4 (06:20→20:23)
[2019-10-28] MEDS: LEVOTHYROXINE 125 MCG (LEVOTHROID) TABLET PO SCH (06:20)
[2019-10-28] MEDS: PANTOPRAZOLE 40 MG (PROTONIX) TAB PO SCH ×2 (06:20→20:21)
[2019-10-28 06:37] LABS: ALBUMIN 3.4 GM/DL (3.2-4.5); BILIRUBIN,TOTAL 0.9 MG/DL (0.1-1.0); CALCIUM 8.7 MG/DL (8.5-10.1); CREATININE SERUM 2.36 MG/DL (0.60-1.30); POTASSIUM 3.5 MMOL/L (3.6-5.0); TOTAL PROTEIN 6.7 GM/DL (6.4-8.2)
[2019-10-28] MEDS: NS IV 1000 ML 1,000 ML IV SCH ×3 (07:52→21:55)
--- NOTE | 2019-10-28 08:15 | NUR ---
Patient and daughter let this RN know that they would like to revisit the idea of patient being full code. doctor notified of request
--- NOTE | 2019-10-28 11:47 | Physical Therapy Evaluation ---
PT Evaluation-General Medical Diagnosis Admission Date October 26, 2019 at 10:18 Medical Diagnosis: AMS/hyperglycemia/dehydration Onset Date: October 26, 2019 Therapy Diagnosis Therapy Diagnosis: generalized weakness/debility Height/Weight Height (Feet): 5 Height (Inches): 4.00 Weight (Pounds): 196 Weight (Ounces): 5.0 Precautions Precautions/Isolations: Fall Prevention, Standard Precautions Weight Bear Status Right Lower Extremity: Right Weight Bearing/Tolerated Left Lower Extremity: Left Weight Bearing/Tolerated Referral Physician: Katie Reason for Referral: Evaluation/Treatment Medical History Pertinent Medical History: Atrial Fib, CABG, CAD, DM, Dementia, Heart Failure, HTN, Hypothroidism, [place], Renal Insufficiency Additional Medical History multiple hospital stays Current History EMS secondary to found unresponsive at home by spouse Reviewed History: Yes Social History Current Living Status: Spouse Entry Into Home: Ramp Prior Prior Level of Function SCALE: Activities may be completed with or without assistive devices. 1-Tbnohggktg-yixabtb completes the activity by him/herself with no assistance from a helper. 5-Set-up or Clean-up Assistance-helper sets up or cleans up; patient completes activity. [place] assists only prior to or following the activity. 4-Supervision or Touching Assistance-helper provides verbal cues and/or touchin g/steadying and/or contact guard assistance as patient completes activity. Assistance may be provided throughout the activity or intermittently. 3-Partial/Moderate Assistance-helper does LESS THAN HALF the effort. [place] lifts, holds or supports trunk or limbs, but provides less than half the effort. 2-Substantial/Maximal Assistance-helper does MORE THAN HALF the effort. [place] lifts or holds trunk or limbs and provides more than half the effort. 8-Tjfpyvvvb-ovkvba does ALL the effort. Patient does none of the effort to complete the activity. Or, the assistance of 2 or more helpers is required for the patient to complete the activity. If activity was not attempted, code reason: 7-Patient Refused. 9-Not Applicable-not attempted and the patient did not perform the activity before the current illness, exacerbation or injury. 10-Not Attempted due to Environmental Limitations-(lack of equipment, weather restraints, etc.). 88-Not Attempted due to Medical Conditions or Safety Concerns. Bed Mobility: 4 Transfers (B,C,W/C): 4 Gait: 4 Indoor Mobility (Ambulation): Needed Some Help Stairs: Not Applicalbe Prior Devices Use: Manual wheelchair, Walker PT Evaluation-Current Subjective Patient agrees to PT. Pain Numeric Pain Scale: 0-No Pain Location: No Pain Reported Objective Patient Orientation: Person, Time, Situation Attachments: Oxygen, Munoz Catheter, IV ROM/Strength ROM Lower Extremities bilateral LE every edematous but WFL Strength Lower Extremities 3-/5 grossly bilateral LE Integumentary/Posture Integumentary refer to nursing notes Bladder Incontinence: Munoz Cath Posture cervical flexion posture in sit Neuromuscular (Tone, Coordination, Reflexes) diminished with all Sensory Vision: Wears Glasses Hearing: Functional Sensation Right Lower Extremit: Impaired Sensation Left Lower Extremity: Impaired Transfers Roll Left to Right (QC): 1 Sit to Lying (QC): 1 Lying to Sitting/Side of Bed(Q: 1 patient dependent with all mobility and required assistance to maintain sitting EOB. Assist by TRAINING PERSONNEL SUPERVISOR as well Gait Does the Patient Walk?: No and Walking Goal IS indicated Balance Sitting Static: Poor Sitting Dynamic: Poor Assessment/Needs 64 y.o. very debilitated female, will benefit from skilled PT to address functional strength and mobility to improve current LOF. Patient was on comfort care and then dismissed this status. Rehab Potential: Guarded PT Short Term Goals Short Term Goals Time Frame: November 12, 2019 Roll Left & Right: 3 Sit to lyin Lying to sitting on side of be: 3 Sit to stand: 3 Chair/tqu-qf-avtbr transfer: 3 Toilet transfer: 3 Walk 10 feet: 3 PT Longterm Goals Hydraulic Rock Drill Operator Goals PT Hydraulic Rock Drill Operator Goals Time Frame: Nov 26, 2019 Roll Left & Right (QC): 4 Sit to Lying (QC): 4 Lying-Sitting on Side/Bed(QC): 4 Sit to Stand (QC): 4 Chair/Bop-vy-Duukl Xfer(QC): 4 Toilet Transfer (QC): 4 Does the Patient Walk: No and Walking Goal IS indicated Walk 10 feet (QC): 4 Walk 50ft with 2 Turns (QC): 4 PT Plan Problem List Problem List: Activity Tolerance, Functional Strength, Safety, Balance, Gait, Transfer, Bed Mobility, ROM Treatment/Plan Treatment Plan: Continue Plan of Care Treatment Plan: Bed Mobility, Education, Functional Activity Tamy, Functional Strength, Gait, Safety, Therapeutic Exercise, Transfers Treatment Duration: Nov 26, 2019 Frequency: 6 times per week Estimated Hrs Per Day: .25 hour per day Patient and/or Family Agrees t: Yes Time/GCodes Time In: 1050 Time Out: 1104 Total Billed Treatment Time: 14 Total Billed Treatment 1 visit EVMod 14 min YOLETTE HILARIO PT October 28, 2019 11:47
--- NOTE | 2019-10-28 11:58 | NUR ---
DISCHARGE PLANNING: Spoke to patient discharge plans. I told her that Dr. Wilson would like for her to go to a SNF to get therapies for strengthening. She adamantly refuses this idea and says she has her niece that helps them out and the her does al the cooking.
--- NOTE | 2019-10-28 12:15 | NUR ---
patient changed to "full code" status per patient request and MD approval
[2019-10-28] MEDS: cefTRIAXone FOR IV USE 1,000 MG in WATER (STERILE) FOR INJECTION 10 ML IV SCH (12:26)
[2019-10-28] MEDS: ACETAMINOPHEN 325 MG TABLET PO PRN ×2 (14:34→22:44)
--- NOTE | 2019-10-28 16:28 | Physician Query Clarification ---
Physician Query-General Query to Physician: The medical record reflects the following clinical scenario: History/Risk factors: Cirrhosis of the Liver, Acute on Chronic Kidney Disease Clinical Findings: Altered mental status/"found unresponsive", MRI report stating: "no acute intracranial process". Treatment: Monitoring in ICU, Medication adjustment, IVFs/ABX Question: What condition best reflects the above clinical scenario? Please document response in the Progress notes or Discharge Summary. 1. Toxic/Metabolic encephalopathy 2. Altered Mental Status (as currently documented) 3. Other , with explanation of the clinical findings 4. Clinically undetermined, no explanation for the clinical findings Please remember a lack of response to the above will prompt a phone page by CDI/coding staff In responding to this query, please exercise your independent professional judgment. The purpose of this communication is to more accurately reflect the complexity of your patients condition. The fact that a question is asked does not imply that any particular answer is desired or expected. Thank you for timely response to this clarification. Lena Rose, MSN, RN RN Specialist-Clinical Doc Improvement CD -Health Info Mgmt Operations [address] [facility] t: [phone] | f: [phone] If you are unable to reach me at my extension, I may be working from home. Please contact me at [phone] PHYSICIAN RESPONSE: Based on the clinical findings in the record, please respond to the query above on this document as an addendum. Physician Response: If you have questions please contact: Fuel Cell Engineer: Ext: Thank you for your time and cooperation. Clinical Search Consultant/Fuel Cell Engineer This is a permanent part of the medical record LENA ROSE October 28, 2019 16:28
[2019-10-28] MEDS ORDERED: PIPERACILLIN/TAZO 4.5 GM/NS 100 ML IV NR ×2 (17:00)
[2019-10-28] MEDS: LACTULOSE SYRUP 10GM/15ML (ENULOSE) 30ML UDC PO SCH ×2 (17:14→20:21)
--- NOTE | 2019-10-28 17:22 | Progress Note ---
Subjective Subjective/Events-last exam Patient awake this AM and talking but falls asleep easily. Tolerating PO diet. Confused but answers some questions appropriately. She is adamant about not going to SNF and wants to go home. Review of Systems Pulmonary: Dyspnea; No Cough Cardiovascular: No: Chest Pain, Palpitations Gastrointestinal: Nausea; No: Abdominal Pain Neurological: Weakness, Incoordination Focused Exam Lactate Level 10/26/19 08:40: Lactic Acid Level 2.18*H 10/26/19 10:55: Lactic Acid Level 3.63*H 10/26/19 12:50: Lactic Acid Level 2.30*H Objective Exam Last Set of Vital Signs Vital Signs Date Time Temp Pulse Resp B/P (MAP) Pulse Ox O2 Delivery O2 Flow Rate FiO2 10/28/19 15:58 38.3 101 16 111/64 (80) 95 Nasal Cannula 2.00 Capillary Refill : Less Than 3 SecondsLess Than 3 Seconds I&O Intake and Output 10/28/19 00:00 Intake Total 3510 ml Output Total 1125 ml Balance 2385 ml Intake Oral 1010 ml IV Total 2500 ml Output Urine Total 1125 ml # Bowel Movements 1 General: Alert, No Acute Distress Lungs: Clear to Auscultation Heart: Regular Rate, Other (systolic murmur) Abdomen: Normal Bowel Sounds, Soft, No Tenderness Extremities: Other (1+ pitting edema bilaterally) Neuro: Other (slurred speech, 3/5 strength LE bilaterally, unable to reposition self) Results/Procedures Lab Laboratory Tests 10/27/19 18:26: Ammonia 78H 10/27/19 20:14: Glucometer 346H 10/28/19 05:52: Glucometer 288H 10/28/19 06:05: White Blood Count 4.4, Red Blood Count 2.62L, Hemoglobin 8.0L, Hematocrit 25L, Mean Corpuscular Volume 95, Mean Corpuscular Hemoglobin 31, Mean Corpuscular Hemoglobin Concent 32, Red Cell Distribution Width 13.1, Platelet Count 143, Mean Platelet Volume 10.3, Neutrophils (%) (Auto) 51, Lymphocytes (%) (Auto) 27, Monocytes (%) (Auto) 17H, Eosinophils (%) (Auto) 4, Basophils (%) (Auto) 1, Neutrophils # (Auto) 2.2, Lymphocytes # (Auto) 1.2, Monocytes # (Auto) 0.7, Eosinophils # (Auto) 0.2, Basophils # (Auto) 0.0, Sodium Level 138, Potassium Level 3.5L, Chloride Level 99, Carbon Dioxide Level 26, Anion Gap 13, Blood Urea Nitrogen 47H, Creatinine 2.36H, Estimat Glomerular Filtration Rate 21, BUN/Creatinine Ratio 20, Glucose Level 255H, Calcium Level 8.7, Corrected Ca lcium 9.2, Total Bilirubin 0.9, Aspartate Amino Transf (AST/SGOT) 15, Alanine Aminotransferase (ALT/SGPT) 7, Alkaline Phosphatase 57, Total Protein 6.7, Albumin 3.4 10/28/19 10:58: Glucometer 477*H 10/28/19 16:04: Glucometer 397H Microbiology 10/26/19 MRSA Screen - Final, Complete MRSA not isolated 10/26/19 Blood Culture - Preliminary, Resulted No growth 10/26/19 Urine Culture - Final, Complete Strep anginosus Assessment/Plan Assessment/Plan (1) Altered mental status Status: Acute Assessment & Plan: - Dx includes: CVA vs medication induced vs infection. Started on Sepsis protocol given LA, no improvement with fluid resuscitation, patient now having seizure like activity in the ICU. Called family and patient was made DNR. Patient on antibiotics and fluid resuscitation. Patient unable to get MRI due to seizure like activity. 10/26: Patient awake this AM. Will get MRI, Ammonia level, d/c comfort care at this time, PT/OT/Speech ordered 10/27: No acute CVA on MRI, Ammonia level elevated, will start lactulose, still not at baseline Qualifiers: Qualified Codes: R40.2431 - Devyn coma scale score 3-8, in the field [emt or ambulance] (2) Sepsis Status: Acute Assessment & Plan: 10/26: Started on Rocephin to cover for UTI 10/27: fevers today, blood cultures pending, add Zosyn Qualifiers: Qualified Codes: A41.9 - Sepsis, unspecified organism; R65.20 - Severe sepsis without septic shock; N17.9 - Acute kidney failure, unspecified (3) Cyaqo-rz-fijylry kidney injury Status: Acute Assessment & Plan: 09/27: Gentle hydration, monitor BMP Qualifiers: (4) Seizure-like activity Status: Resolved Assessment & Plan: - Likely 2/2 to probable CVA (5) Cirrhosis Status: Chronic Qualifiers: Qualified Codes: K74.69 - Other cirrhosis of liver (6) Atrial fibrillation Status: Chronic Assessment & Plan: - Unable to tolerate anticoagulation due to GAVE and transfusion dependent anemia Qualifiers: Qualified Codes: I48.0 - Paroxysmal atrial fibrillation (7) Insulin dependent diabetes mellitus Status: Chronic Assessment & Plan: - SSI (8) Hyperglycemia Status: Acute (9) Transfusion-dependent anemia Status: Chronic Assessment & Plan: - follows with Dr Field as outpatient (10) Coronary artery disease Status: Chronic Qualifiers: Qualified Codes: I25.10 - Atherosclerotic heart disease of [place] coronary artery without angina pectoris (11) 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
[2019-10-28] MEDS: PIPERACILLIN/TAZOBACTAM (BULK) 4.5 GM in NS (IVPB) 100 ML IV SCH (22:40)
[2019-10-29 04:49] VITALS: BP 145/67
[2019-10-29] MEDS: ACETAMINOPHEN 325 MG TABLET PO PRN (05:10)
[2019-10-29] MEDS: LEVOTHYROXINE 125 MCG (LEVOTHROID) TABLET PO SCH (06:08)
[2019-10-29] MEDS: PIPERACILLIN/TAZOBACTAM (BULK) 4.5 GM in NS (IVPB) 100 ML IV SCH (06:08)
[2019-10-29 06:47] LABS: BASOPHILS % (AUTO) 0 % (0-10); EOSINOPHILS # (AUTO) 0.3 10^3/uL (0.0-0.3); EOSINOPHILS % (AUTO) 8 % (0-10); HEMATOCRIT 22 % (35-52); LYMPHOCYTES # (AUTO) 0.9 X 10^3 (1.0-4.0); LYMPHOCYTES % (AUTO) 24 % (12-44); MEAN CORPUSCULAR HEMOGLOBIN 30 PG (25-34); MEAN CORPUSCULAR HGB CONC 32 G/DL (32-36); MEAN CORPUSCULAR VOLUME 94 FL (80-99); MEAN PLATELET VOLUME 10.3 FL (7.4-10.4); MONOCYTES # (AUTO) 0.5 X 10^3 (0.0-1.0); MONOCYTES % (AUTO) 13 % (0-12); NEUTROPHILS % (AUTO) 55 % (42-75); PLATELET COUNT 114 10^3/uL (130-400); RED CELL DISTRIBUTION WIDTH 12.7 % (10.0-14.5); WHITE BLOOD COUNT 3.6 10^3/uL (4.3-11.0)
[2019-10-29 07:23] LABS: BILIRUBIN,TOTAL 0.5 MG/DL (0.1-1.0); CREATININE SERUM 1.97 MG/DL (0.60-1.30); POTASSIUM 3.7 MMOL/L (3.6-5.0)
[2019-10-29] MEDS: inSUlin ASPART (NovoLOG) 1 UNIT/0.01 ML (CHARGE PER UNIT) SC SCH ×2 (07:35→12:55)
[2019-10-29 07:51] VITALS: BP 134/68
[2019-10-29] MEDS: LACTULOSE SYRUP 10GM/15ML (ENULOSE) 30ML UDC PO SCH (09:07)
[2019-10-29] MEDS: PANTOPRAZOLE 40 MG (PROTONIX) TAB PO SCH (09:07)
--- NOTE | 2019-10-29 10:57 | Physical Therapy Daily Note ---
PT Daily Note-Current Subjective Patient in bed pre tx, agrees to exercises in bed, states she has been in the recliner since 0400 this morning and doesn't want to get out of bed. Patient states she has 8/10 pain in right foot. Appearance Patient in bed post tx with nurse call, phone, tray, all needs met. Mental Status Patient Orientation: Person, Place, Situation Attachments: Oxygen, Munoz Catheter, IV Transfers SCALE: Activities may be completed with or without assistive devices. 9-Ijvbtadhqk-iatwyan completes the activity by him/herself with no assistance from a helper. 5-Set-up or Clean-up Assistance-helper sets up or cleans up; patient completes activity. [place] assists only prior to or following the activity. 4-Supervision or Touching Assistance-helper provides verbal cues and/or touching/steadying and/or contact guard assistance as patient completes act ivity. Assistance may be provided throughout the activity or intermittently. 3-Partial/Moderate Assistance-helper does LESS THAN HALF the effort. [place] lifts, holds or supports trunk or limbs, but provides less than half the effort. 2-Substantial/Maximal Assistance-helper does MORE THAN HALF the effort. [place] lifts or holds trunk or limbs and provides more than half the effort. 7-Wtwmgrohq-qbwtjw does ALL the effort. Patient does none of the effort to complete the activity. Or, the assistance of 2 or more helpers is required for the patient to complete the activity. If activity was not attempted, code reason: 7-Patient Refused. 9-Not Applicable-not attempted and the patient did not perform the activity before the current illness, exacerbation or injury. 10-Not Attempted due to Environmental Limitations-(lack of equipment, weather restraints, etc.). 88-Not Attempted due to Medical Conditions or Safety Concerns. Weight Bearing Right Lower Extremity: Right Weight Bearing/Tolerated Left Lower Extremity: Left Weight Bearing/Tolerated Exercises Supine Ex: Ankle pumps, Quad Set, Glut sets, Heel Slides, Short Arc Quads, Straight leg raise, Hip abd/add Supine Reps: 15 Treatments BLE supine exercises Assessment Current Status: Poor Progress poor exercise performance PT Short Term Goals Short Term Goals Time Frame: November 12, 2019 Roll Left & Right: 3 Sit to lyin Lying to sitting on side of be: 3 Sit to stand: 3 Chair/jbu-ra-shwss transfer: 3 Toilet transfer: 3 Walk 10 feet: 3 PT Restaurant Crew Goals Nursing Home Goals PT Nursing Home Goals Time Frame: Nov 26, 2019 Roll Left & Right (QC): 4 Sit to Lying (QC): 4 Lying-Sitting on Side/Bed(QC): 4 Sit to Stand (QC): 4 Chair/Qnp-wv-Ltqnj Xfer(QC): 4 Toilet Transfer (QC): 4 Does the Patient Walk: No and Walking Goal IS indicated Walk 10 feet (QC): 4 Walk 50ft with 2 Turns (QC): 4 PT Plan Problem List Problem List: Activity Tolerance, Functional Strength, Safety, Balance, Gait, Transfer, Bed Mobility, ROM Treatment/Plan Treatment Plan: Continue Plan of Care Treatment Plan: Bed Mobility, Education, Functional Activity Tamy, Functional Strength, Gait, Safety, Therapeutic Exercise, Transfers Treatment Duration: Nov 26, 2019 Frequency: 6 times per week Estimated Hrs Per Day: .25 hour per day Patient and/or Family Agrees t: Yes Safety Risks/Education Patient Education: Correct Positioning, Safety Issues Teaching Recipient: Patient Teaching Methods: Demonstration, Discussion Response to Teaching: Reinforcement Needed Time/GCodes Time In: 1028 Time Out: 1038 Total Billed Treatment Time: 10 Total Billed Treatment 1 visit EX LEIGHTON PANIAGUA PT October 29, 2019 10:56
[2019-10-29 12:00] VITALS: BP 130/70
[2019-10-29] MEDS: cefTRIAXone FOR IV USE 1,000 MG in WATER (STERILE) FOR INJECTION 10 ML IV SCH (12:55)
[2019-10-29] MEDS ORDERED: AMOX-358 PO (13:52)
--- NOTE | 2019-10-29 13:53 | Discharge Summary ---
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 (5) Hypothyroidism Status: Chronic (6) Hypertension Status: Chronic (7) Type 2 diabetes mellitus with hyperglycemia Status: Chronic (8) Poor prognosis Status: Acute Hospital Course Date of Admission: October 26, 2019 at 10:18 Admission Diagnosis : Family Physician/Provider: Carla Wilson MD Date of Discharge: 10/29/19 Discharge Diagnosis: AMS, UTI, anemia, transfusion dependent, DM Hospital Course: Patient had a convoluted course after she was admitted for severe AMS and was ultimately put on hospice care palliative comfort care but she recovered and became alert and was able to regain her function and insisted on DC home with her family so abx was sent in before she left [place] and although her prognosis is poor and is a hospice candidate she was dc in stable condition. Labs and Pending Lab Test: Laboratory Tests 10/28/19 16:04: Glucometer 397H 10/28/19 19:30: Glucometer 309H 10/29/19 06:18: White Blood Count 3.6L, Red Blood Count 2.32L, Hemoglobin 7.0L, Hematocrit 22L, Mean Corpuscular Volume 94, Mean Corpuscular Hemoglobin 30, Mean Corpuscular Hemoglobin Concent 32, Red Cell Distribution Width 12.7, Platelet Count 114L, Mean Platelet Volume 10.3, Neutrophils (%) (Auto) 55, Lymphocytes (%) (Auto) 24, Monocytes (%) (Auto) 13H, Eosinophils (%) (Auto) 8, Basophils (%) (Auto) 0, Neutrophils # (Auto) 2.0, Lymphocytes # (Auto) 0.9L, Monocytes # (Auto) 0.5, Eosinophils # (Auto) 0.3, Basophils # (Auto) 0.0, Sodium Level 134L, Potassium Level 3.7, Chloride Level 99, Carbon Dioxide Level 25, Anion Gap 10, Blood Urea Nitrogen 39H, Creatinine 1.97H, Estimat Glomerular Filtration Rate 26, BUN/Creatinine Ratio 20, Glucose Level 254H, Calcium Level 8.0L, Corrected Calcium 8.8, Total Bilirubin 0.5, Aspartate Amino Transf (AST/SGOT) 18, Alanine Aminotransferase (ALT/SGPT) 7, Alkaline Phosphatase 49, Total Protein 6.0L, Albumin 3.0L 10/29/19 11:55: Glucometer 292H Microbiology 10/26/19 MRSA Screen - Final, Complete MRSA not isolated 10/26/19 Blood Culture - Preliminary, Resulted No growth 10/26/19 Urine Culture - Final, Complete Strep anginosus Home Meds Active Reported Levothyroxine Sodium 125 Mcg Tablet 125 Mcg PO DAILY LAST FILLED 09-06-2019 #30 Promethazine Tablet (Promethazine HCl) 25 Mg Tablet 12.5 Mg PO Q12H PRN Metoclopramide HCl 10 Mg Tablet 10 Mg PO BIDAC PRN Metolazone 5 Mg Tablet 5 Mg PO THU,CARLENE PRN Bumetanide 1 Mg Tablet 1 Mg PO DAILY PRN MAY TAKE AN ADDITIONAL DOSE IF NEEDED Tizanidine HCl 2 Mg Tablet 2 Mg PO TID PRN Glucosamine & Chondroitin Cap (Glucosa Horne 2Kcl/Chondroitin Horne) 1 Each Capsule 1 Cap PO BID Acetaminophen Extra Strength (Acetaminophen) 500 Mg Tablet 500 Mg PO Q4H PRN Novolog Flexpen (Insulin Aspart) 300 Units/3 Ml Solution 8 Units SQ AC Bumetanide 1 Mg Tablet 1 Mg PO DAILY Folic Acid 1 Mg Tablet 1 Mg PO DAILY LAST FILLED 09-11-2019 #30 Tramadol HCl 50 Mg Tablet 50 Mg PO TID PRN Magox 400 (Magnesium Oxide) 400 Mg Tablet 400 Mg PO BID Nitrostat (Nitroglycerin) 0.4 Mg Tab.subl 0.4 Mg SL UD PRN Novolin N (Insulin NPH Human Isophane) 100 Unit/1 Ml Vial SQ AC LAST FILLED 09-05-2019 #10 VIALS SLIDING SCALE A Zyrtec (Cetirizine HCl) 10 Mg Tablet 10 Mg PO DAILY Omeprazole 40 Mg Capsule.dr 40 Mg PO BID Assessment/Pt Instructions [facility] this week Discharge Planning: <30 minutes discharge planning Discharge Instructions Discharge Diet: ADA Diet Discharge Physical Examination Vital Signs Vital Signs Date Time Temp Pulse Resp B/P (MAP) Pulse Ox O2 Delivery O2 Flow Rate FiO2 10/29/19 08:00 Nasal Cannula 2.00 10/29/19 07:51 37.0 75 20 134/68 (90) 99 General Appearance: No Apparent Distress, WD/WN, Chronically ill Respiratory: Chest Non Tender, Lungs Clear, Normal Breath Sounds, No Accessory Muscle Use, No Respiratory Distress Neurologic/Psychiatric: Alert, Oriented x3, No Motor/Sensory Deficits, Normal Mood/Affect Allergies: Coded Allergies: Ldyxiua-Kol-Iqs Reductase Inhibitor (Verified Allergy, Intermediate, GI UPSET, N/V, 11/06/17) cefadroxil (Unverified Allergy, Mild, 01/01/17) Sulfa (Sulfonamide Antibiotics) (Verified Allergy, Unknown, 06/18/18) Discharge Summary Date of Admission October 26, 2019 at 10:18 Date of Discharge Discharge Date: October 29, 2019 Clinical Quality Measures DVT/VTE Risk/Contraindication: Risk Factor Score Per Nursin RFS Level Per Nursing on Admit: 4+=Very High MICHELLE GARCIA DO October 29, 2019 13:53
--- NOTE | 2019-10-29 14:54 | NUR ---
DC'D PER WC TO HOME. VOIDED X1 WITH BM SINCE WOOD REMOVED. VERBALIZED UNDERSTANDING OF DC INSTRUCTIONS.
[2019-10-29] MEDS ORDERED: SCOPOLAMINE PATCH REMOVAL TP SCH (17:45)
== END 2019-10-29 14:56 | disposition home or self-care (01) | DRG 871 ==
LOC: EDUNIT# 08:33 → ER 08:34 → ICU 10:18 → 4TH 18:25
PROVIDERS: ADMIT Family Medicine; ATTEND Family Medicine
DX: A41.9 Sepsis, unspecified organism (principal); R65.20 Severe sepsis without septic shock; N39.0 Urinary tract infection, site not specified; N17.9 Acute kidney failure, unspecified; R56.9 Unspecified convulsions; K31.811 Angiodysplasia of stomach and duodenum with bleeding; Z66 Do not resuscitate; Z51.5 Encounter for palliative care; R41.82 Altered mental status, unspecified; G81.94 Hemiplegia, unspecified affecting left nondominant side; R25.1 Tremor, unspecified; I13.0 Hypertensive heart and chronic kidney disease with heart failure and stage 1 through stage 4 chronic kidney disease, or unspecified chronic kidney disease; N18.9 Chronic kidney disease, unspecified; I50.9 Heart failure, unspecified; I25.10 Atherosclerotic heart disease of native coronary artery without angina pectoris; K74.60 Unspecified cirrhosis of liver; E11.65 Type 2 diabetes mellitus with hyperglycemia; D50.0 Iron deficiency anemia secondary to blood loss (chronic); I48.0 Paroxysmal atrial fibrillation; R47.89 Other speech disturbances; E86.0 Dehydration; I25.2 Old myocardial infarction; E03.9 Hypothyroidism, unspecified; G47.30 Sleep apnea, unspecified; F41.9 Anxiety disorder, unspecified; T50.905A Adverse effect of unspecified drugs, medicaments and biological substances, initial encounter; Z87.891 Personal history of nicotine dependence; Z95.1 Presence of aortocoronary bypass graft; Z95.5 Presence of coronary angioplasty implant and graft
CPT/HCPCS: 36415; 36600; 51702; 70450; 70551; 71045; 80053; 80061; 81000; 82140; 82805; 82962; 83605; 83874; 84100; 84145; 84443; 84484; 85014; 85018; 85025; 85610; 85730; 86141; 86850; 86900; 86901; 86902; 86922; 87040; 87077; 87081; 87088; 93005; 93041; 94760; 96361; 96374

== ENCOUNTER 2019-11-14 14:15 | Emergency (ER) | payer MEDICARE ==
[~2019-11-14] VITALS: Ht 162.6 cm; Wt 102.1 kg
[~2019-11-14 14:15] MED LIST changes: +AMOX-358 PO; +Folic Acid PO; +LEVO125T6 PO; +NITR-65 PO
[2019-11-14 15:36] LABS: BASOPHILS % (AUTO) 0 % (0-10); EOSINOPHILS # (AUTO) 0.2 10^3/uL (0.0-0.3); EOSINOPHILS % (AUTO) 5 % (0-10); HEMATOCRIT 27 % (35-52); HEMOGLOBIN 8.2 G/DL (11.5-16.0); LYMPHOCYTES # (AUTO) 0.7 X 10^3 (1.0-4.0); LYMPHOCYTES % (AUTO) 16 % (12-44); MEAN CORPUSCULAR HEMOGLOBIN 29 PG (25-34); MEAN CORPUSCULAR HGB CONC 31 G/DL (32-36); MEAN CORPUSCULAR VOLUME 95 FL (80-99); MEAN PLATELET VOLUME 9.5 FL (7.4-10.4); MONOCYTES # (AUTO) 0.4 X 10^3 (0.0-1.0); MONOCYTES % (AUTO) 10 % (0-12); NEUTROPHILS # (AUTO) 3.1 X 10^3 (1.8-7.8); NEUTROPHILS % (AUTO) 69 % (42-75); PLATELET COUNT 183 10^3/uL (130-400); RED CELL DISTRIBUTION WIDTH 13.2 % (10.0-14.5); WHITE BLOOD COUNT 4.5 10^3/uL (4.3-11.0)
[2019-11-14] MEDS ORDERED: MECLIZINE 25 MG (ANTIVERT) TAB PO ONE (15:45)
[2019-11-14 15:48] LABS: ALBUMIN 3.6 GM/DL (3.2-4.5); POTASSIUM 4.8 MMOL/L (3.6-5.0)
[2019-11-14 15:49] LABS: CALCIUM 9.4 MG/DL (8.5-10.1)
[2019-11-14 15:51] LABS: TOTAL PROTEIN 7.2 GM/DL (6.4-8.2)
[2019-11-14 15:52] LABS: BILIRUBIN,TOTAL 0.6 MG/DL (0.1-1.0)
[2019-11-14 15:54] LABS: CREATININE SERUM 2.11 MG/DL (0.60-1.30)
--- NOTE | 2019-11-14 16:09 | ED General ---
General Chief Complaint: Dizziness/Syncope Stated Complaint: DIZZINESS Nursing Triage Note: Pt amb to room #7 (walker assistance) with c/o dizziness, fatigue, weakness, nausea, vomiting, hematuria, et lower R sided abd discomfort. Pt reports onset of s/s began on 11/13/19. Pt reports low grade fever or 99.1 on this day et was advised by PCP to be seen in this ED for further eval. et tx. 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 Initial SPO2 89% via RA. Pt reports to wear PRN home oxygen. 1L O2 applied via NC. A&OX4. Nursing Sepsis Screen: No Definite Risk Source of Information: Patient Exam Limitations: No Limitations History of Present Illness Date Seen by Provider: Nov 14, 2019 Time Seen by Provider: 16:07 Initial Comments To ER with dizziness fatigue weakness nausea vomiting and abdominal pain. She states the nausea and vomiting, random and this is not a new symptom she's had this for quite a long time. 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 She does report some dizziness which is new. Timing/Duration: 1-2 Days Severity: Moderate Associated Systoms: Nausea/Vomiting Allergies and Home Medications Allergies Coded Allergies: Fhrjmvr-Efk-Xel Reductase Inhibitor (Verified Allergy, Intermediate, GI UPSET, N/V, 11/06/17) cefadroxil (Unverified Allergy, Mild, 01/01/17) Sulfa (Sulfonamide Antibiotics) (Verified Allergy, Unknown, 06/18/18) Home Medications Acetaminophen 500 Mg Tablet, 500 MG PO Q4H PRN for PAIN-MILD (1-4), (Reported) Bumetanide 1 Mg Tablet, 1 MG PO DAILY, (Reported) Bumetanide 1 Mg Tablet, 1 MG PO DAILY PRN for SWELLING, (Reported) MAY TAKE AN ADDITIONAL DOSE IF NEEDED Cetirizine HCl 10 Mg Tablet, 10 MG PO DAILY, (Reported) Glucosa Horne 2Kcl/Chondroitin Horne 1 Each Capsule, 1 CAP PO BID, (Reported) Insulin Aspart 300 Units/3 Ml Solution, 8 UNITS SQ AC, (Reported) Insulin NPH Human Isophane 100 Unit/1 Ml Vial, SQ AC, (Reported) LAST FILLED 09-05-2019 #10 VIALS SLIDING SCALE A Levothyroxine Sodium 125 Mcg Tablet, 125 MCG PO DAILY, (Reported) LAST FILLED 09-06-2019 #30 Magnesium Oxide 400 Mg Tablet, 400 MG PO BID, (Reported) Metoclopramide HCl 10 Mg Tablet, 10 MG PO BIDAC PRN for STOMACH UPSET, (Reported) Metolazone 5 Mg Tablet, 5 MG PO SUN,CARLENE PRN for WEIGHT>195, (Reported) Nitrofurantoin Monohyd/M-Cryst 100 Mg Capsule, 1 TAB PO BID WITH MEALS Prescribed by: TONIE CRAWFORD on 11/06/19 1014 Nitroglycerin 0.4 Mg Tab.subl, 0.4 MG SL UD PRN for CHEST PAIN, (Reported) Omeprazole 40 Mg Capsule.dr, 40 MG PO BID, (Reported) Promethazine HCl 25 Mg Tablet, 12.5 MG PO Q12H PRN for NAUSEA/VOMITING-2ND LINE, (Reported) Tizanidine HCl 2 Mg Tablet, 2 MG PO TID PRN for MUSCLE SPASMS, (Reported) Tramadol HCl 50 Mg Tablet, 50 MG PO TID PRN for PAIN-MODERATE, (Reported) [Folic Acid] , 1 MG PO DAILY, (Reported) LAST FILLED 09-11-2019 #30 Patient Home Medication List Home Medication List Reviewed: Yes Review of Systems Review of Systems Constitutional: see HPI, weakness EENTM: see HPI Respiratory: no symptoms reported Gastrointestinal: abdominal pain Genitourinary: no symptoms reported Musculoskeletal: no symptoms reported Skin: no symptoms reported Psychiatric/Neurological: No Symptoms Reported Hematologic/Lymphatic: No Symptoms Reported Immunological/Allergic: no symptoms reported Past Qfukxre-Gxbivn-Basxgg Hx Patient Social History Type Used: Cigarettes Former Smoker, Quit: May 20, 1980 2nd Hand Smoke Exposure: No Recent Foreign Travel: No Contact w/Someone Who Travel: No Recent Infectious Disease Expo: No Recent Hopitalizations: Yes Immunizations Up To Date Tetanus Booster (TDap): Unknown PED Vaccines UTD: Yes Date of Pneumonia Vaccine: May 16, 2019 Date of Influenza Vaccine: Apr 15, 2019 Seasonal Allergies Seasonal Allergies: Yes Past Medical History Surgeries: Yes (SEE BELOW) Adenoidectomy, Cardiac, CABG, Coronary Stent, Open Heart Surgery, Orthopedic, Tonsillectomy, Tubal Ligation Respiratory: Yes (LEFT PLEURAL EFFUSION-S/P THORACENTESIS) Sleep Apnea Currently Using CPAP: No Currently Using BIPAP: No Cardiac: Yes (CHF, STENT X1; CABG 02/16/2018 x 4 @ [facility];NSTEMI X 3) Atrial Fibrillation, Chronic Edema/Swelling, Coronary Artery Disease, Heart Attack, High Cholesterol, Hypertension Neurological: Yes (CHRONIC BASELINE CONFUSION) Dementia Reproductive Disorders: No Female Reproductive Disorders: Denies 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 LIVER DZ/ELEV AMMONIA) Gastroesophageal Reflux, Liver Disease/Jaundice, Gastrointestinal Bleed, Diverticulosis, Hemorrhoids, Polyps Musculoskeletal: Yes (POOR AMBULATION--USES WALKER SINCE CABG; L ANKLE AND KNEE SURGERIES) Degenerate Disk Disease, Arthritis, Chronic Back Pain, Fractures Endocrine: Yes (OBESITY) Diabetes, Insulin dep, Hypothyroidsim HEENT: No Loss of Vision: Denies Hearing Impairment: Denies Cancer: No Psychosocial: Yes Anxiety Integumentary: Yes Psoriasis Blood Disorders: Yes (CHRONIC ANEMIA-GI LOSS/GAVE SYNDROME; MULT TRANSFUSIONS/MULT ANTIBODIES) Adverse Reaction/Blood Tranf: Yes (Antibody JKA) Family Medical History Arthritis G8 BROTHER Completed stroke 19 MOTHER FH: anemia 19 MOTHER FH: lupus G8 SISTER FH: throat cancer 19 FATHER Hypertension G8 SISTER Myocardial infarction 19 MOTHER Thyroid disease 19 MOTHER G8 SISTER Hypertension, Stroke, Other Conditions/Hx Physical Exam Vital Signs Vital Signs - First Documented 11/14/19 15:06 Temp 37.1 Pulse 75 Resp 18 B/P (MAP) 134/61 (85) Pulse Ox 96 O2 Delivery Nasal Cannula O2 Flow Rate 1.00 Capillary Refill : Less Than 3 Seconds Height, Weight, BMI Height: 5'4.00" Weight: 196lbs. 5.0oz. 89.570567cg; 38.00 BMI Method:Stated General Appearance: No Apparent Distress, WD/WN, Chronically ill Eyes: Bilateral Eye Normal Inspection, Bilateral Eye PERRL, Bilateral Eye EOMI Respiratory: No Accessory Muscle Use, No Respiratory Distress Cardiovascular: Regular Rate, Rhythm, Normal Peripheral Pulses Gastrointestinal: Normal Bowel Sounds, Non Tender, Soft Extremity: Normal Capillary Refill, Normal Inspection Neurologic/Psychiatric: Alert, Oriented x3 Skin: Normal Color, Warm/Dry Procedures/Interventions Date of ETT Placement: May 30, 2018 Time of ETT Placement: 1330 Progress/Results/Core Measures Suspected Sepsis Recent Fever Within 48 Hours: Yes Infection Criteria Present: Suspected New Infection New/Unexplained Altered Menta: No Sepsis Screen: No Definite Risk SIRS Temperature: Pulse: 75 Respiratory Rate: 18 Laboratory Tests 11/14/19 15:25: White Blood Count 4.5 Blood Pressure 134 /61 Mean: 85 Laboratory Tests 11/14/19 15:25: Creatinine 2.11H, Platelet Count 183, Total Bilirubin 0.6 Results/Orders Lab Results Laboratory Tests Test 11/14/19 15:25 11/14/19 16:11 Range/Units White Blood Count 4.5 4.3-11.0 10^3/uL Red Blood Count 2.82 L 4.35-5.85 10^6/uL Hemoglobin 8.2 L 11.5-16.0 G/DL Hematocrit 27 L 35-52 % Mean Corpuscular Volume 95 80-99 FL Mean Corpuscular Hemoglobin 29 25-34 PG Mean Corpuscular Hemoglobin Concent 31 L 32-36 G/DL Red Cell Distribution Width 13.2 10.0-14.5 % Platelet Count 183 130-400 10^3/uL Mean Platelet Volume 9.5 7.4-10.4 FL Neutrophils (%) (Auto) 69 42-75 % Lymphocytes (%) (Auto) 16 12-44 % Monocytes (%) (Auto) 10 0-12 % Eosinophils (%) (Auto) 5 0-10 % Basophils (%) (Auto) 0 0-10 % Neutrophils # (Auto) 3.1 1.8-7.8 X 10^3 Lymphocytes # (Auto) 0.7 L 1.0-4.0 X 10^3 Monocytes # (Auto) 0.4 0.0-1.0 X 10^3 Eosinophils # (Auto) 0.2 0.0-0.3 10^3/uL Basophils # (Auto) 0.0 0.0-0.1 10^3/uL Sodium Level 140 135-145 MMOL/L Potassium Level 4.8 3.6-5.0 MMOL/L Chloride Level 103 98-107 MMOL/L Carbon Dioxide Level 28 21-32 MMOL/L Anion Gap 9 5-14 MMOL/L Blood Urea Nitrogen 34 H 7-18 MG/DL Creatinine 2.11 H 0.60-1.30 MG/DL Estimat Glomerular Filtration Rate 24 BUN/Creatinine Ratio 16 Glucose Level 98 70-105 MG/DL Calcium Level 9.4 8.5-10.1 MG/DL Corrected Calcium 9.7 8.5-10.1 MG/DL Total Bilirubin 0.6 0.1-1.0 MG/DL Aspartate Amino Transf (AST/SGOT) 18 5-34 U/L Alanine Aminotransferase (ALT/SGPT) 9 0-55 U/L Alkaline Phosphatase 73 40-136 U/L Total Protein 7.2 6.4-8.2 GM/DL Albumin 3.6 3.2-4.5 GM/DL Urine Color YELLOW Urine Clarity SL CLOUDY Urine pH 7.5 5-9 Urine Specific [place] 1.010 L 1.016-1.022 Urine Protein NEGATIVE NEGATIVE Urine Glucose (UA) NEGATIVE NEGATIVE Urine Ketones NEGATIVE NEGATIVE Urine Nitrite NEGATIVE NEGATIVE Urine Bilirubin NEGATIVE NEGATIVE Urine Urobilinogen 0.2 < = 1.0 MG/DL Urine Leukocyte Esterase 2+ H NEGATIVE Urine RBC (Auto) NEGATIVE NEGATIVE Urine RBC NONE /HPF Urine WBC 5-10 H /HPF Urine Squamous Epithelial Cells 10-25 H /HPF Urine Crystals NONE /LPF Urine Bacteria TRACE /HPF Urine Casts NONE /LPF Urine Mucus NEGATIVE /LPF Urine Culture Indicated YES My Orders Orders - MALLORIE FATIMA APRN Cbc With Automated Diff (11/14/19 15:17) Comprehensive Metabolic Panel (11/14/19 15:17) Meclizine Tablet (Antivert Tablet) (11/14/19 15:45) Ua Culture If Indicated (11/14/19 15:45) Urine Culture (11/14/19 16:11) Medications Given in ED Current Medications Medications Dose Ordered Sig/Roberth Route Start Time Stop Time Status Last Admin Dose Admin Meclizine HCl 25 mg ONCE ONCE PO 11/14/19 15:45 11/14/19 15:46 DC 11/14/19 16:03 25 MG Vital Signs/I&O 11/14/19 15:06 Temp 37.1 Pulse 75 Resp 18 B/P (MAP) 134/61 (85) Pulse Ox 96 O2 Delivery Nasal Cannula O2 Flow Rate 1.00 Capillary Refill : Less Than 3 Seconds Blood Pressure Mean: 85 Departure Impression Primary Impression: Transfusion-dependent anemia Additional Impressions: Dizziness UTI (urinary tract infection) Disposition: 01 HOME, SELF-CARE Condition: Stable Departure-Patient Inst. Decision time for Depature: 16:25 Referrals: JAMES TORRES MD (PCP/Family) Primary Care Physician Patient Instructions: Dizziness, Nonvertigo, (DC), Urinary Tract Infections in Adults Add. Discharge Instructions: 1. Return to ER for any concerns 2. Follow-up with your doctor next week 3. All discharge instructions reviewed with patient and/or family. Voiced understanding. Scripts Levofloxacin (Levaquin) 500 Mg Tablet 500 MG PO DAILY, #3 TAB Prov: MALLORIE FATIMA APRN 11/14/19 Copy Copies To 1: JAMES TORRES MD, PETER J APRN Nov 14, 2019 16:08
--- NOTE | 2019-11-14 16:11 | NUR ---
Pt amb to restroom (walker assist) to obtain clean catch urine sample.
[2019-11-14 16:17] LABS: BILIRUBIN,URINE NEGATIVE (NEGATIVE); CLARITY,URINE SL CLOUDY; COLOR,URINE YELLOW; GLUCOSE, URINE (UA) NEGATIVE (NEGATIVE); KETONES,URINE NEGATIVE (NEGATIVE); LEUKOCYTE ESTERASE ,URINE 2+ (NEGATIVE); NITRITE,URINE NEGATIVE (NEGATIVE); PH,URINE 7.5 (5-9); PROTEIN,URINE NEGATIVE (NEGATIVE)
[2019-11-14 16:31] LABS: BACTERIA,URINE TRACE /HPF
[2019-11-14] MEDS ORDERED: LEVO500T2 PO (16:34)
[2019-11-14 16:58] VITALS: BP 126/57
--- OUTSIDE RECORDS SUMMARY | 2019-11-14 18:11 | XMS REPORT | Encounter Summary ---
Author Author [facility] Organization [facility] Address Unknown Phone Unavailable Care Team Providers Care Auto Inspection Specialist Name Role Phone Carla Wilson MD PCP Naima Field MD Unavailable Winnie Jorge MD Unavailable Emliiano Rodriguez TIN ASSORTER-MANAGEMENT SME 7 Felisa Sneed MD 3 Reason for Visit * Reason Comments Lab Results Encounter Details Care Team Description Date Type Department Tracie Stuart, intermediate frame tender Results 09/27/2019 Telephone The [facility] [address] [address] Social History Date Tobacco Use Types Packs/Day [...] states she would prefer to go to [facility] ER in [place], [place] as this is where she goes [...]
--- OUTSIDE RECORDS SUMMARY | 2019-11-14 18:11 | XMS REPORT | Encounter Summary ---
Author Author [facility] Organization [facility] Address Unknown Phone Unavailable Care Team Providers Care Talent Acquisition Operations Manager Name Role Phone Carla Wilson MD PCP Naima Field MD Unavailable Winnie Jorge MD Unavailable Emiliano Rodriguez SAP ARIBA CONSULTANT-REGISTERED NURSING PROFESSOR 7 Felisa Sneed MD 3 Reason for Visit * Reason Comments Appointment Question Encounter Details Care Team Description Date Type Department Lynette Diana MD 4000 [facility] [id number] [place] [address] Appointment Question 11/08/2019 Telephone The [facility] [address] [address] Social History Date Tobacco Use [...] * Telephone Encounter - Jeniffer Walker - 11/08/2019 10:22 AM CDT Please call pt to [facility] 11/09 clinic appt documented in this encounter Plan of Treatment Not on filedocumented as of this encounter Visit Diagnoses Not on filedocumented in this encounter
--- OUTSIDE RECORDS SUMMARY | 2019-11-14 18:11 | XMS REPORT | Encounter Summary ---
Author Author [facility] Organization [facility] Address Unknown Phone Unavailable Care Team Providers Care Demand Generation Manager Name Role Phone Carla Wilson MD PCP Naima Field MD Unavailable Winnie Jorge MD Unavailable Emiliano Rodriguez CHEMISTRY LABORATORY TECHNICIAN-TUBING TESTER 7 Felisa Sneed MD 3 Reason for Visit * Reason Comments Nausea Encounter Details Care Team Description Date Type Department Antolin Erazo [address] [place] [address] Nausea 10/05/[address] [address] Social History Date Tobacco Use [...] transfusion from Dr. Field, hematology/oncolog y at [place] [facility] in [place], [place]. Last time blood transfusion was last Thursday. Routing to Dr. Covington/Dr. Erazo to advise. documented in this encounter Plan of Treatment Not on filedocumented as of this encounter Visit Diagnoses Not on filedocumented in this encounter
--- OUTSIDE RECORDS SUMMARY | 2019-11-14 18:11 | XMS REPORT | Encounter Summary ---
Author Author [facility] Organization [facility] Address Unknown Phone Unavailable Care Team Providers Care Modular Home Crew Member Name Role Phone Carla Wilson MD PCP Naima Field MD Unavailable Winnie Jorge MD Unavailable Emiliano Rodriguez NORMALIZER-MEDICAL WRITER 7 Felisa Sneed MD 3 Reason for Visit * Reason Comments Other Nurse, Please Call. Encounter Details Care Team Description Date Type Department Lynette Diana MD 4000 [facility] [id number] [place] [address] Other (Nurse, Please Call.) 10/04/2019 Telephone The [facility] [address] [address] Social History Date Tobacco Use [...] chronic nausea. Requested pat mic call her film laboratory technician. * Telephone Encounter - Lauryn Crum - 10/04/2019 3:07 PM CDT Vm 3:04pm Please have Dr Diana's nurse call. [phone] documented in this encounter Plan of Treatment Not on filedocumented as of this encounter Visit Diagnoses Not on filedocumented in this encounter
--- OUTSIDE RECORDS SUMMARY | 2019-11-14 18:11 | XMS REPORT | Clinical Summary ---
Author Author [facility] Organization [facility] Address Unknown Phone Unavailable Care Team Providers Care Juvenile Correctional Officer Name Role Phone Carla Wilson MD PCP Naima Field MD Unavailable Winnie Jorge MD Unavailable Emiliano Rodriguez APRN-ALARM SERVICE TECHNICIAN 7 Felisa Sened MD 3 Source Comments Some departments are not documenting in the electronic medical record. If you d o not see the information that you expected, contact Release of Information in [facility] Information Management department at [phone] for further assistan ce in locating additional records.[facility] Allergies Comments Active Allergy Reactions Severity Noted [...] 6 hours as needed for Sleep. Active fpxdtkud-drrkqxocv-W-doug Take 500 mg 0 anese 500-400-2-0.33 mg [...] kidney injury) 02/18/2018 CAD (coronary artery disease), eagle coronary artery 02/16/2018 Overview: 02/16/18: CABG x4 [...] Added automatically from request for carol soria [id number] Resolved Problems Problem Noted Date Resolved Date [...] Encounters Care Team Description Date Type Specialty Lynette Diana MD Appointment Question 11/08/2019 Telephone Hepatology Antolin Erazo Nausea 10/05/2019 Telephone Gastroenterology Lynette Diana MD Other (Nurse, Please Call.) 10/04/2019 Telephone Hepatology Tracie Stuart RN Lab Results 09/27/2019 Telephone Cardiology Rina Ruano MA Labs Only 09/27/2019 Documentation Cardiology from Last 3 Months Immunizations [...] Comments Vital Sign 112/40 07/05/2019 9:11 AM INSECTICIDE SUPERVISOR Blood Pressure 77 07/05/2019 9:11 AM INSECTICIDE SUPERVISOR Pulse 36.4 C (97.5 F) 07/05/2019 8:40 AM INSECTICIDE SUPERVISOR Temperature 16 03/08/2019 2:34 PM CDT Respiratory Rate 100% 07/05/2019 8:40 AM INSECTICIDE SUPERVISOR Oxygen Saturation - - Inhaled Oxygen Concentration 93.4 kg (206 lb) 07/05/2019 9:11 AM INSECTICIDE SUPERVISOR Weight 162.6 cm (5' 4") 07/05/2019 9:11 AM INSECTICIDE SUPERVISOR Height 35.36 07/05/2019 9:11 AM INSECTICIDE SUPERVISOR Body Mass Index Plan of Treatment Health [...] Power injectable confirmed by card. THOMPSON SUTTON [id number] / [id number] / [id number] Plate Acutie Sternal Closure - N/A: Sternum ACT [id number] INNOVATION Implanted: Qty: 2 on 02/16/2018 by Lance Conte MD at [facility] [id number] / [id number] / [id number] Plate Acutie Sternal Closure - N/A: Sternum ACT [id number] INNOVATION Implanted: Qty: 1 on 02/16/2018 by Lance Conte MD at [facility] Procedures Comments Procedure Name Priority Date/Time [...] PAF (paroxysmal atrial fibrillation) (HCC) Heart disease from Last 3 Months Results * CBC (09/26/2019) White Blood 3.8 [...] Specimen Blood - Blood Performing Organization Address [facility] [address]/[facility] Ph one Number MAIN LAB [address] [place] [address] * BNP (B-TYPE NATRIURETIC PEPTI) (09/26/2019) B Type 376.1 (H) <100.0 [facility] MAIN LAB Natriuretic Peptide BNP NT pro [facility] MAIN LAB Specimen Blood - Blood Performing Organization Address [facility] [address]/[facility] Ph one Number MAIN LAB [address] [place], [place] * MAGNESIUM (09/26/2019) Magnesium 2.6 (H) 1.6 - 2.4 [facility] MAIN LAB Specimen Blood - Blood Narrative Performed At This result has an attachment that is n ot available. Performing Organization Address [facility] [address]/[facility] Ph one Number MAIN LAB [address] [place] [address] * BASIC METABOLIC PANEL (09/26/2019) Sodium 141 [...] [facility] MAIN LAB eGFR [facility] MAIN LAB [place] Anion Gap 9 [facility] MAIN [facility] BUN/Creatinine 19 [facility] MAIN [facility] Ratio Specimen Blood - Blood Performing Organization Address City/State/Zipcode Ph one Number [facility] MAIN LAB [address] [place] [address] from Last 3 Months Insurance Type Payer Benefit Subscriber ID Effective Phone Address Plan / Dates Group Medicare MEDICARE MEDICARE xxxxxxxxxxx [id number] PART A AND resent B Advance Directives Patient Assembly Technician Explanation Type Date Recorded Advance 02/16/2018 9:31 [...]
--- OUTSIDE RECORDS SUMMARY | 2019-11-14 18:12 | XMS REPORT | Encounter Summary ---
Author Author [facility] Organization [facility] Address Unknown Phone Unavailable Care Team Providers Care Animal Damage Control Agent Name Role Phone Carla Wilson MD PCP Naima Field MD Unavailable Winnie Jorge MD Unavailable Emiliano Rodriguez HOG COUNTER-TRACK REPAIR WORKER 7 Felisa Sneed MD 3 Encounter Details Care Team Description Date Type Department Rina Ruano MA 07/28/2019 Documentation The [facility] [id number] [place] [address] Social History Date Tobacco Use Types Packs/Day [...] Results * PROTIME INR (PT) (07/28/2019) Pathologist [facility] INR 1.1 0.8 - 1.4 OTHER OUTSIDE LAB Protime 14.2 OTHER OUTSIDE LAB Specimen Blood - Blood Performing Organization Address City/[facility] one Number OTHER OUTSIDE LAB * CBC AND DIFF (07/28/2019) Pathologist [facility] White Blood 3.4 (L) 4.3 - 11.0 [...] is n ot available. Performing Organization Address City/[facility] Ph one Number OTHER OUTSIDE LAB * COMPREHENSIVE METABOLIC PANEL (07/28/2019) Pathologist [facility] Sodium 138 OTHER OUTSIDE LAB Potassium 4.3 [...] LAB eGFR Non 29 OTHER OUTSIDE LAB Georgian eGFR OTHER OUTSIDE Georgian LAB Anion Gap 5 OTHER OUTSIDE LAB BUN/Creatinine 14 OTHER OUTSIDE Ratio LAB Specimen Blood - Blood Performing Organization Address [facility] Ph [facility] Number OTHER OUTSIDE LAB documented in this encounter Visit Diagnoses Not on filedocumented in this encounter
--- OUTSIDE RECORDS SUMMARY | 2019-11-14 18:12 | XMS REPORT | Encounter Summary ---
Author Author [facility] Organization [facility] Address Unknown Phone Unavailable Care Team Providers Care Manager Technical Training Name Role Phone Carla Wilson MD PCP Naima Field MD Unavailable Winnie Jorge MD Unavailable Emiliano Rodriguez CONTACT CENTER AGENT-PLANNER INTERNSHIP 7 Felisa Sneed MD 3 Encounter Details Care Team Description Date Type Department Oliverio Mcneil LPN 05/23/2019 Telephone [facility] [id number] [place] [address] Social History Date Tobacco Use Types Packs/Day [...] Alice Esposito RN - 06/01/2019 3:03 PM SWINE GENETICS RESEARCHER Addended by: ALICE ESPOSITO on: 06/01/2019 03:03 PM Modules accepted: Orders E GENETICS RESEARCHER * Telephone Encounter - Alice Esposito RN - 06/01/2019 2:57 PM SWINE GENETICS RESEARCHER Felisa Sneed MD Montgomery, Cara, RN Nope. That is all. Please set a reminder to check in with her between and for weight/BP/symptoms and keep me posted. THANKS Previous Messages ----- Message ----- From: Alice Esposito RN Sent: 06/01/2019 1:57 PM SWINE GENETICS RESEARCHER To: Felisa Sneed MD Here are Deborah's labs from Thursday. Continue to hold Toro and Bumex (if not eating and drinking). Any other med fanny nges? Called patient and spoke with her about medication changes. Pt verbalized unders tanding. Edgewood removed from list, pt said she hadn't been feeling well today. Ag guy to plan with Bumex and will hold if she is unable to keep anything down. Pt will call us back if she has any additional concerns. E GENETICS RESEARCHER * Telephone Encounter - Alice Esposito RN - 06/01/2019 11:17 AM SWINE GENETICS RESEARCHER Returned call to patient. She reports not [...] Will route to Dr. Sneed for review. E GENETICS RESEARCHER * Telephone Encounter - Oliverio Mcneil LPN - 06/01/2019 10:03 AM SWINE GENETICS RESEARCHER Pt called on 05/31 after 1600 reporting feeling "loopy" and asks for call back, called pt to assess: Patient Status patient is an established patient with [facility]. Signs and Symptoms Light headedness No swelling SOA had improved Pt reports being forgetful Lots of vomiting yesterday and could not keep anything down Pt was in ED Thursday, was told she had pneumonia Medication Review bumex 2 mg Edgewood 12.5 mg Pt states she will hold [...] 05/03 05/02 190 Records request sent to E GENETICS RESEARCHER * Addendum Note - Pat Combs RN - 05/24/2019 4:20 PM SWINE GENETICS RESEARCHER Addended by: PAT COMBS on: 05/24/2019 04:20 PM Modules accepted: Orders E GENETICS RESEARCHER * Addendum Note - Pat Combs RN - 05/24/2019 3:40 PM SWINE GENETICS RESEARCHER Addended by: PAT COMBS on: 05/24/2019 03:40 PM Modules accepted: Orders E GENETICS RESEARCHER * Telephone Encounter - Pat Combs RN - 05/24/2019 3:13 PM SWINE GENETICS RESEARCHER Reviewed with Dr. Chong. Orders given for [...] She is getting labs drawn at the [facility] er Center on Thursday and asks that the lab requisition be sent there. I asked at if she is not feeling better by Thursday to give us a call that morning. She r epeated the instructions back and verbalized understanding. Called the Cancer Center at [facility], . Spoke with Kaylyn and she gave me fax number [phone] to fax the requisition. E GENETICS RESEARCHER * Telephone Encounter - Oliverio Mcneil LPN - 05/23/2019 3:03 PM SWINE GENETICS RESEARCHER Pt called asking about lab results, called to assess: Patient Status patient is an established patient with [facility]. Signs and Symptoms Abdominal swelling Leg swelling Some SOA the last 2 days Medication Review Taking bumex 1 mg daily for a month. Pt thinks this was done after an admission at [facility] Recent Salt Intake Pt drinking 32 oz daily Date Weight B/P Pulse 05/23 200 05/22 201.2 05/21 201.8 05/20 202.4 05/19 201.9 05/18 201 05/17 05/16 199.2 05/15 200.4 05/14 05/13 05/12 196.2 05/11 05/10 05/09 05/08 05/06 05/05 05/04 05/03 05/02 190 Records request sent to [facility] for lab results. E GENETICS RESEARCHER documented in this encounter Plan of Treatment [...] eGFR [facility] Bahamian Anion Gap 12 5 - 14 [facility] Specimen Blood - Blood Narrative Performed At This result has an attachment that is n ot available. Performing Organization Address City/State/Zipcode Ph one Number [facility] [address] [place] [address] documented in this encounter Visit Diagnoses Diagnosis Chronic diastolic heart failure (HCC) Chronic diastolic heart failure documented in this encounter
--- OUTSIDE RECORDS SUMMARY | 2019-11-14 18:12 | XMS REPORT | Encounter Summary ---
Author Author [facility] Organization [facility] Address Unknown Phone Unavailable Care Team Providers Care Contact Center Agent Name Role Phone Carla Wilson MD PCP Naima Field MD Unavailable Winnie Jorge MD Unavailable Emiliano Rodriguez BUSINESS INFORMATION ANALYST-SOFTWARE ENGINEERING SUPERVISOR 7 Felisa Sneed MD 3 Reason for Visit * Reason Comments Palliative Care * Consult, Test & Treat (Routine) Referred By Contact Referred To Contact Status Reason Specialty Diagnoses / Procedures Felisa Sneed MD [address] [facility] [place] [address] Pending Review Procedures REQUEST FOR CARDIOLOGY APPOINTMENT Encounter Details Care Team Description Date Type Department Roland Hernández BUSINESS INFORMATION ANALYST-SOFTWARE ENGINEERING SUPERVISOR [address] [place], [place] [id number] Palliative Care 07/05/2019 Office Visit [facility] [address] [address] Social History Date Tobacco Use Types Packs/Day [...] Comments Vital Sign 112/40 07/05/2019 9:11 AM OUTSIDE MACHINIST Blood Pressure 77 07/05/2019 9:11 AM OUTSIDE MACHINIST Pulse - - Temperature - - Respiratory Rate - - Oxygen Saturation - - Inhaled Oxygen Concentration 93.4 kg (206 lb) 07/05/2019 9:11 AM OUTSIDE MACHINIST Weight 162.6 cm (5' 4") 07/05/2019 9:11 AM OUTSIDE MACHINIST Height 35.36 07/05/2019 9:11 AM OUTSIDE MACHINIST Body Mass Index documented in this encounter [...] this encounter Progress Notes * Roland Hernández, SAMANTHA-SOFTWARE ENGINEERING SUPERVISOR - 07/05/2019 9:30 AM OUTSIDE MACHINIST PALLIATIVE CARE OUTPATIENT VISIT Date of Service: [...] needs to PCP/specilsits unless HF becomes primary sprinkler driver of decompensa tion in health status. Follow-up: PRN Thank you for the opportunity to participate in the care of this patient. Please call with any questions or concerns. Roland Hernández APRN, SOFTWARE ENGINEERING SUPERVISOR-C Palliative Care--Outpatient Heart Failure Pager: Office: (Total time spent 45 minutes [id number] with patient & . Estimated counseling time [...] Bleeding disorder (HCC) CAD (coronary artery disease), cury[place] coronary artery 02/16/2018 Chronic diastolic heart failure (HCC) 03/31/2018 Coronary artery disease Diabetes mellitus (HCC) Type II Essential hypertension 02/23/2018 Hypertension Stomach disorder Vision decreased Surgical History: Surgical History: Procedure Laterality Date HX HEART CATHETERIZATION 2017 CORONARY STENT PLACEMENT 2016 CORONARY ARTERY BYPASS WITH ARTERIAL GRAFT - 4 GRAFTS (Internal Mammary Torie ry and Endovascular Vein [place]) N/A 02/16/2018 Performed by Lance Pal MD [...] tablet Take 1 mg by mouth daily. jgwpoqfs-syzfsacrt-V-manganese 500-400-2-0.33 mg cap Take 500 mg by [...] - Heart Failure: MD Roland Mackay APRN [address] [facility] [address] [place] [address] [phone] Phone contact: [phone] IDE MACHINIST documented in this encounter Miscellaneous Notes * Advanced Care Planning/Resuscitation Status - Roland Hernández APRN-NP - 07/05/2019 9:30 AM OUTSIDE MACHINIST Advance Care Planning/Resuscitation Status Conversation Individuals present for advance care planning conversation: Patient, (), Edgar Palliative SOFTWARE ENGINEERING SUPERVISOR Pertinent details of conversation (including direct quotes [...] sepa rate billable note). Roland Hernández APRN SOFTWARE ENGINEERING SUPERVISOR-C Palliative Care--Outpatient Heart Failure Pager: Office: IDE MACHINIST documented in this encounter Plan of Treatment [...]
--- OUTSIDE RECORDS SUMMARY | 2019-11-14 18:12 | XMS REPORT | Encounter Summary ---
Author Author [facility] Organization [facility] Address Unknown Phone Unavailable Care Team Providers Care Human Resources Compliance Manager Name Role Phone Carla Wilson MD PCP Naima Field MD Unavailable Winnie Jorge MD Unavailable Emiliano Rodriguez REVERBERATORY FURNACE SUPERVISOR-STRATEGIC ANALYST 7 Felisa Sneed MD 3 Reason for Referral * Consult, Test & Treat (Routine) Referred By Contact Referred To Contact Status Reason Specialty Diagnoses / Procedures Felisa Sneed MD [address] [place] [address] New Request Diagnoses Heart disease P rocedures REQUEST FOR CARDIOLOGY APPOINTMENT Reason for Visit * Reason Comments Cardiac Eval 3 month recheck * Consult, Test & Treat (Routine) Referred By Contact Referred To Contact Status Reason Specialty Diagnoses / Procedures Felisa Sneed MD [address] [place] [address] New Request Procedures REQUEST FOR CARDIOLOGY APPOINTMENT Encounter Details Care Team Description Date Type Department Felisa Sneed MD [address] [place] [address] [phone] Cardiac Eval (3 month recheck) 07/05/2019 Office Visit [facility] [address] [address] Social History Date Tobacco Use Types Packs/Day [...] Comments Vital Sign 112/40 07/05/2019 8:40 AM HEALTH CARE ADMINISTRATOR Blood Pressure 77 07/05/2019 8:40 AM HEALTH CARE ADMINISTRATOR Pulse 36.4 C (97.5 F) 07/05/2019 8:40 AM HEALTH CARE ADMINISTRATOR Temperature - - Respiratory Rate 100% 07/05/2019 8:40 AM HEALTH CARE ADMINISTRATOR Oxygen Saturation - - Inhaled Oxygen Concentration 93.6 kg (206 lb 6.4 oz) 07/05/2019 8:40 AM HEALTH CARE ADMINISTRATOR Weight 162.6 cm (5' 4") 07/05/2019 8:40 AM HEALTH CARE ADMINISTRATOR Height 35.43 07/05/2019 8:40 AM HEALTH CARE ADMINISTRATOR Body Mass Index documented in this encounter [...] Instructions* Janell Matos - 07/05/2019 9:00 AM HEALTH CARE ADMINISTRATOR Will see Roland today. Med changes today: increase bumex to 2mg twice a day. Metolazone 5mg daily Mondays and , 1 hour before morning bumex, with in structions to only take if weight is above 195 pounds. Please log you blood pressure, heart rate, and daily weight in the Robert Applebaum MD walker. Labs standing monthly with routine CBC: [...] does not resolve with rest or nitroglycerin Corazon, foamy mucus with cough and shortness of breath A continuous rapid or irregular heartbeat Passing out or fainting Stroke symptoms such as sudden numbness or weakness on one side of your face, arm, or leg or sudden confusion, trouble speaking or vision changes Heart Failure TH CARE ADMINISTRATOR documented in this encounter Progress Notes * Felisa Sneed MD - 07/05/2019 9:00 AM HEALTH CARE ADMINISTRATOR Date of Service: 07/05/2019 Deborah Fields is a 64 y.o. female. CRYS Cabrera returns for follow-up in the advanced heart failure clinic in [place]. As you recall, she is now 64 [...] (HCC ) 03/31/2018 Chronic diastolic heart failure ([facility]) 03/31/2018 Long's esophagus 03/30/2018 Left leg cellulitis 03/29/2018 Pleural effusion on left 03/26/2018 Essential hypertension 02/23/2018 DELROY (acute kidney injury) ([facility]) 02/18/2018 CAD (coronary artery disease), [place] coronary artery 02/16/2018 02/16/18: CABG x4 (PRIDE [...] present on pulmonary function testing 02/16/2018 Thrombocytopenia ([facility]) 02/16/2018 Junctional rhythm 02/16/2018 Type 2 diabetes mellitus with circulatory disorder, without long-term curren t use of insulin ([facility]) 02/12/2018 PAF (paroxysmal atrial fibrillation) ([facility]) 02/12/2018 02/16/18: Bilateral modified CryoMaze procedure (pulmonary vein isolation) & Suture ligation of left atrial appendage at time of CABG. 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 HENT: Negative. [...] disease Essential hypertension Coronary artery disease involving [place] coronary artery of [place] heart wit hout angina pectoris Assessment and [...] and is following with Dr. Sosa in [place] [facility], and his ejection [...] Advanced Heart Failure and Transplant Cardiology Pager [phone] I spent 25 minutes with the patient [...] tablet Take 1 mg by mouth daily. jnobjzrh-pmfepadyl-M-manganese 500-400-2-0.33 mg cap Take 500 mg by [...] 6 hours as nee ded for Pain. TH CARE ADMINISTRATOR documented in this encounter Plan of [...] is n ot available. Performing Organization Address City/[facility] Ph one Number MAIN LAB [address] [place] [address] * BASIC METABOLIC PANEL (09/26/2019) Sodium 141 [...] [facility] eGFR [facility] Stateless Anion Gap 9 [facility] BUN/Creatinine 19 [facility] Ratio Specimen Blood - Blood Performing Organization Address City/[facility] Number MAIN LAB [address] [place] [address] * BNP (B-TYPE NATRIURETIC PEPTI) (09/26/2019) B Type 376.1 (H) <100.0 [facility] Natriuretic Peptide BNP NT pro [facility] Specimen Blood - Blood Performing Organization Address [facility] Ph one Number [facility] [address] [place] [address] * CBC (09/26/2019) Pathologist [facility] White Blood 3.8 (L) 4.3 - 11.0 [...] Specimen Blood - Blood Performing Organization Address [facility] Ph one Number [facility] [address] [place] [address] documented in this encounter Visit Diagnoses Diagnosis Chronic diastolic heart failure (HCC) Chronic diastolic heart failure PAF (paroxysmal atrial fibrillation) (H CC) Atrial fibrillation Heart disease Heart disease, unspecified Essential hypertension Unspecified essential hypertension Coronary artery disease involving nativ e coronary artery of [place] heart without angina pectoris documented in this encounter
--- OUTSIDE RECORDS SUMMARY | 2019-11-14 18:12 | XMS REPORT | Encounter Summary ---
Author Author [facility] Organization [facility] Address Unknown Phone Unavailable Care Team Providers Care Educational Administration Teacher Name Role Phone Carla Wilson MD PCP Naima Field MD Unavailable Winnie Jorge MD Unavailable Emiliano Rodriguez SHADING PAINTER-PHYSICIAN INTERNIST 7 Felisa Sneed MD 3 Reason for Visit * Reason Comments Labs Only Encounter Details Care Team Description Date Type Department Janell Matos Labs Only 05/25/2019 Documentation [facility] [address] [facility] [place] [address] Social History Date Tobacco Use Types Packs/Day [...]
--- OUTSIDE RECORDS SUMMARY | 2019-11-14 18:12 | XMS REPORT | Encounter Summary ---
Author Author [facility] Organization [facility] Address Unknown Phone Unavailable Care Team Providers Care Wafer Production Worker Name Role Phone Carla Wilson MD PCP Naima Field MD Unavailable Winnie Jorge MD Unavailable Emiliano Rodriguez AUTOMATED LOGISTICS SPECIALIST-DE ICER KIT ASSEMBLER 7 Felisa Sneed MD 3 Reason for Visit * Reason Comments Labs Only Encounter Details Care Team Description Date Type Department Rina Ruano MA Labs Only 09/27/2019 Documentation [facility] [address] [facility] [place] [address] Social History Date Tobacco Use Types Packs/Day [...] Blood - Blood Performing Organization Address [facility] Ph one Number [facility] [address] [id number] * BNP (B-TYPE NATRIURETIC PEPTI) (09/26/2019) B Type 376.1 (H) <100.0 [facility] Natriuretic Peptide BNP NT pro [facility] Specimen Blood - Blood Performing Organization Address [facility] Ph one Number [facility] [address] [place] [address] * BASIC METABOLIC PANEL (09/26/2019) Pathologist [facility] Sodium 141 [facility] Potassium 4.6 [...] [facility] eGFR [facility] Guyanese Anion Gap 9 [facility] BUN/Creatinine 19 [facility] Ratio Specimen Blood - Blood Performing Organization Address City/[facility] Ph one Number [facility] [address] [place] [address] * MAGNESIUM (09/26/2019) Magnesium 2.6 (H) 1.6 - 2.4 [facility] Specimen Blood - Blood Narrative Performed At This result has an attachment that is n ot available. Performing Organization Address City/[facility] Ph one Number MA[facility] LAB [address] [place] [address] documented in this encounter Visit Diagnoses Diagnosis Chronic diastolic heart failure (HCC) Chronic diastolic heart failure PAF (paroxysmal atrial fibrillation) (H CC) Atrial fibrillation Heart disease Heart disease, unspecified documented in this encounter
--- OUTSIDE RECORDS SUMMARY | 2019-11-14 18:12 | XMS REPORT | Encounter Summary ---
Author Author [facility] Organization [facility] Address Unknown Phone Unavailable Care Team Providers Care Public Information Officer Name Role Phone Carla Wilson MD PCP Naima Field MD Unavailable Winnie Jorge MD Unavailable Emiliano Rodriguez TRACK SWEEPER-CLINICAL SPECIALIST MEDICAL DEVICE 7 Felisa Sneed MD 3 Reason for Visit * Reason Comments Labs Only Encounter Details Care Team Description Date Type Department Janell Matos Labs Only 06/01/2019 Documentation [facility] [address] [facility] [place] [address] Social History Date Tobacco Use Types Packs/Day [...] [facility] eGFR [facility] Bahraini Anion Gap 12 5 - 14 [facility] Specimen Blood - Blood Narrative Performed At This result has an attachment that is n ot available. Performing Organization Address City/State/Zipcode Ph one Number [facility] [address] [place] [address] documented in this encounter Visit Diagnoses Diagnosis Chronic diastolic heart failure (HCC) Chronic diastolic heart failure documented in this encounter
--- OUTSIDE RECORDS SUMMARY | 2019-11-14 18:31 | XMS REPORT | Continuity of Care Document ---
Author Organization Unknown Address Unknown Phone Unavailable Allergies Active Description Code Type Severity Reaction Onset Reported/Identified Relationship to Patient Clinical Status Yes methotrexate [id number] Drug Allergy Unknown N/A 03/24/2014 Yes cefadroxil [id number] Drug Allerg y Mild N/A 01/01/2017 Yes diltiazem [id number] Drug Allergy Unknown mouth burning a 02/23/2017 Yes Dfpvlzd-Nvx-Siw Reductase Inhibitor [id number] Drug Allergy Moderate GI UPSET, N/V 11/06/2017 Yes Sulfa (Sulfonamide Antibiotics) [id number] Drug Allergy Unknown N/A 019 Medications There is no data. Problems Date Dx Coded Attending Type Code Diagnosis Diagnosed By SHIREEN AGARWAL Ot D50.9 IRON DEFICIENCY ANEMIA, UNSPECIFIED SHIREEN AGARWAL Ot E03.9 HYPOTHYROIDISM, UNSPECIFIED SHIREEN AGARWAL Ot 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 SHIREEN AGARWAL Ot I12.9 HYPERTENSIVE CHRONIC KIDNEY DISEASE W ST SHIREEN AGARWAL Ot I25.10 ATHSCL HEART DISEASE OF [place] CORONARY SHIREEN AGARWAL Ot I48.91 UNSPECIFIED ATRIAL FIBRILLATION SHIREEN AGARWAL Ot N18.3 CHRONIC KIDNEY DISEASE, STAGE 3 (MODERAT SHIREEN AGARWAL Ot Z79.899 OTHER DETENTION (CURRENT) DRUG THERAPY 05/14/1018 BRANDEN HAIDER MD, Ot D50.9 IRON DEFICIENCY ANEMIA, UNSPECIFIED 05/14/1018 BRANDEN HAIDER MD, Ot E03.9 HYPOTHYROIDISM, UNSPECIFIED 05/14/1018 BRANDEN HAIDER MD Ot 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 05/14/1018 BRANDEN HAIDER MD, Ot I12.9 HYPERTENSIVE CHRONIC KIDNEY DISEASE W ST 05/14/1018 BRANDEN HAIDER MD, Ot I25.10 ATHSCL HEART DISEASE OF [place] CORONARY 05/14/1018 MELIZA KHOURY, BRANDEN Ot I48.91 UNSPECIFIED ATRIAL FIBRILLATION 05/14/1018 BRANDEN HAIDER MD Ot N18.3 CHRONIC KIDNEY DISEASE, STAGE 3 (MODERAT 05/14/1018 BRANDEN HAIDER MD Ot Z79.899 OTHER DETENTION (CURRENT) DRUG THERAPY 05/14/1557 SHIREEN AGARWAL Ot D50.0 IRON DEFICIENCY ANEMIA SECONDARY TO BLOO 05/14/1557 SHIREEN AGARWAL N Ot E03.9 HYPOTHYROIDISM, UNSPECIFIED 05/14/1557 SHIREEN AGARWAL N Ot 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 05/14/1557 SHIREEN AGARWAL Ot E53.8 DEFICIENCY OF OTHER SPECIFIED B GROUP 05/14/1557 SHIREEN AGARWAL N Ot I12.9 HYPERTENSIVE CHRONIC KIDNEY DISEASE W ST 05/14/1557 SHIREEN AGARWAL N Ot I25.10 ATHSCL HEART DISEASE OF [place] CORONARY 05/14/1557 SHIREEN AGARWAL Ot I48.91 UNSPECIFIED ATRIAL FIBRILLATION 05/14/1557 SHIREEN AGARWAL N Ot K31.819 ANGIODYSPLASIA OF STOMACH AND DUODENUM W 05/14/1557 SHIREEN AGARWAL N Ot K74.60 UNSPECIFIED CIRRHOSIS OF LIVER 05/14/1557 SHIRENE AGARWAL N Ot N18.3 CHRONIC KIDNEY DISEASE, STAGE 3 (MODERAT 05/14/1557 SHIREEN AGARWAL N Ot Z79.899 OTHER DETENTION (CURRENT) DRUG THERAPY 05/22/2010 Ot 250.00 AAW B NALLELY WO COMPL, TYPE II OR UNSPEC TY 05/22/2010 Ot 272.4 HYPE RLIPIDEMIA NEC/NOS 05/22/2010 Ot 401.9 HYPE RTENSION NOS 05/22/2010 Ot 414.01 COR ONARY ATHEROSCLEROSIS OF [place] CORON 05/22/2010 Ot 427.31 ATR IAL FIBRILLATION 03/02/2014 LINDA KHOURY FACFernanda, ARNIE FACP CCDS Ot 244.9 HYPOTHYROIDISM NOS 03/02/2014 LINDA KHOURY FACFernanda, ALI FACP CCDS Ot 250.00 DIAB NALLELY WO COMPL, TYPE II OR UNSPEC TY 03/02/2014 LINDA KHOURY FACC, ALI FACP CCDS Ot 272.4 HYPERLIPIDEMIA NEC/NOS 03/02/2014 LINDA KHOURY FACC, ALI FACP CCDS Ot 285.9 ANEMIA NOS 03/02/2014 LINDA KHOURY FACC, ALI FACP CCDS Ot 401.9 HYPERTENSION NOS 03/02/2014 LINDA KHOURY FACC, ALI FACP CCDS Ot 414.01 CORONARY ATHEROSCLEROSIS OF [place] CORON 03/02/2014 LINDA KHOURY FACC, ALI FACP [...] BOBAN N Ot 414.01 CORONARY ATHEROSCLEROSIS OF [place] CORON 05/16/2014 ANY BOBAN N Ot 585.3 CHRONIC KIDNEY DISEASE, STAGE III (MODER 05/25/2014 ANY, BOBAN N Ot 244.9 05/25/2014 ANY, BOBAN N Ot 285.9 05/25/2014 ANY, BOBAN N Ot 414.01 05/25/2014 ANY, BOBAN N Ot 585.3 05/31/2014 ANY, BOBAN N Ot 244.9 05/31/2014 ANY, BOBAN N Ot 285.9 05/31/2014 ANY, BOBAN N Ot 414.01 05/31/2014 ANY, BOBAN N Ot 585.3 06/01/2014 NAY, BOBAN N Ot 244.9 06/01/2014 ANY, BOBAN [...] BOBAN N Ot 414.01 CORONARY ATHEROSCLEROSIS OF [place] CORON 08/30/2014 AYN, BOBAN N Ot 585.3 CHRONIC KIDNEY DISEASE, [...] 272.4 10/05/2014 Ot 250.00 10/05/2014 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 Ot 574.20 10/05/2014 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 Ot 789.1 10/05/2014 LINDA KHOURY FACC, [...] Ot V58.69 10/05/2014 Ot 250.02 10/05/2014 ANY, JJAN N Ot 244.9 10/05/2014 ANY, BOBAN N Ot 285.9 10/05/2014 ANY, BOBAN N Ot 414.01 10/05/2014 ANY, BOBAN N Ot 585.3 10/05/2014 Ot 401.9 10/05/2014 Ot 272.4 10/05/2014 Ot 250.00 10/05/2014 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 Ot 574.20 10/05/2014 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 Ot 789.1 10/05/2014 LINDA KHOURY FACC, ALI FACP CCDS Ot 401.9 10/05/2014 LINDA KHOURY FACC, ALI FACP CCDS Ot 414.00 10/05/2014 LINDA MD FACC, ALI FACP CCDS Ot 427.31 10/05/2014 [...] BOBAN N Ot 585.3 11/27/2014 HARVEY KHOURY, DREMED S Ot 585.2 12/27/2014 ANY, BOBAN N Ot 244.9 HYPOTHYROIDISM NOS 12/27/2014 ANY, BOBAN N Ot 285.9 ANEMIA NOS 12/27/2014 ANY, BOBAN N Ot 414.01 CORONARY ATHEROSCLEROSIS OF [place] CORON 12/27/2014 ANY, BOBAN N Ot 585.3 CHRONIC KIDNEY DISEASE, STAGE III (MODER 03/08/2015 ANY, BOBAN N Ot 244.9 03/08/2015 ANY, BOBAN N Ot 285.9 03/08/2015 ANY, BOBONDINA N Ot 414.01 03/08/2015 ANY, BOBAN N [...] KHOURY, TORI-FRANKIE Ot E78.5 03/21/2015 OVI KHOURY, TORI-FRAKNIE Ot I10 03/21/2015 OVI KHOURY, TORI-FRANKIE Ot [...] WU DIOR MD Ot I10 04/27/2015 ANY, SHIREEN N Ot D64.9 04/27/2015 ANY, SHIREEN N Ot E03.9 04/27/2015 ANY, BOBAN N [...] BOBAN N Ot 427.31 ATRIAL FIBRILLATION 06/13/2015 ANYSHIREEN N Ot 585.3 CHRONIC KIDNEY DISEASE, STAGE III (MODER 06/13/2015 ANY JJAN N Ot D64.9 ANEMIA, UNSPECIFIED 06/13/2015 ANY, SHIREEN N Ot E03.9 HYPOTHYROIDISM, UNSPECIFIED 06/13/2015 ANY, BOBAN N Ot E11.9 TYPE 2 DIABETES MELLITUS WITHOUT COMPLIC 06/13/2015 ANY, BOBAN N Ot I12.9 HYPERTENSIVE CHRONIC KIDNEY DISEASE W ST 06/13/2015 ANY SHIREEN N Ot I25.10 ATHSCL HEART DISEASE OF [place] CORONARY 06/13/2015 ANY BOBONDINA N Ot I48.91 UNSPECIFIED ATRIAL FIBRILLATION 06/13/2015 ANY, BOBAN N Ot N18.3 CHRONIC KIDNEY DISEASE, STAGE 3 (MODERAT 06/13/2015 ANY SHIREEN N Ot V58.69 OTH MED,LT,CURRENT USE 06/13/2015 ANY BOBAN N Ot Z79.899 OTHER DETENTION (CURRENT) DRUG THERAPY 09/27/2015 ANY, BOBAN N Ot D64.9 09/27/2015 ANY, BOBAN N Ot E03.9 09/27/2015 ANY, BOBAN N Ot E11.9 09/27/2015 ANY, BOBAN N Ot I12.9 09/27/2015 SHIREEN AGARWAL N Ot I25.10 09/27/2015 SHIREEN AGARWAL N Ot I48.91 09/27/2015 SHIREEN AGARWAL N Ot N18.3 09/27/2015 SHIREEN AGARWAL N Ot Z79.899 09/27/2015 Ot 401.9 09/27/2015 Ot 272.4 09/27/2015 Ot 250.00 09/27/2015 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 Ot 574.20 09/27/2015 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 Ot 789.1 09/27/2015 LINDA KHOURY FACC, [...] CLAUDE S Ot 574.20 09/27/2015 HARVEY KHOURY, CLAUDE S Ot 585.2 09/27/2015 OVI KHOURY, TORI-FRANKIE [...] N Ot I25.10 ATHSCL HEART DISEASE OF [place] CORONARY 10/09/2015 ANY, BOBAN N Ot I48.91 UNSPECIFIED ATRIAL FIBRILLATION 10/09/2015 ANY, BOBAN N Ot N18.3 CHRONIC KIDNEY DISEASE, STAGE 3 (MODERAT 10/09/2015 ANY, BOBAN N Ot Z79.899 OTHER DETENTION (CURRENT) DRUG THERAPY 10/17/2015 ANY, BOBAN N Ot D64.9 ANEMIA, UNSPECIFIED 10/17/2015 ANY, BOBAN N Ot E03.9 HYPOTHYROIDISM, UNSPECIFIED 10/17/2015 ANY, BOBAN N Ot 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 10/17/2015 ANY, BOBAN N Ot I12.9 HYPERTENSIVE CHRONIC KIDNEY DISEASE W ST 10/17/2015 ANY, BOBAN N Ot I25.10 ATHSCL HEART DISEASE OF [place] CORONARY 10/17/2015 ANY, BOBAN N Ot I48.91 UNSPECIFIED ATRIAL FIBRILLATION 10/17/2015 ANY, BOBAN N Ot N18.3 CHRONIC KIDNEY DISEASE, STAGE 3 (MODERAT 10/17/2015 ANY, BOBAN N Ot 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 10/19/2015 SHIREEN AGARWAL Ot D64.9 ANEMIA, UNSPECIFIED 10/19/2015 SHIREEN AGARWAL N Ot E03.9 HYPOTHYROIDISM, UNSPECIFIED 10/19/2015 SHIREEN AGARWAL N Ot 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 10/19/2015 SHIREEN AGARWAL N Ot I12.9 HYPERTENSIVE CHRONIC KIDNEY DISEASE W ST 10/19/2015 SHIREEN AGARWAL N Ot I25.10 ATHSCL HEART DISEASE OF [place] CORONARY 10/19/2015 SHIREEN AGARWAL N Ot I48.91 UNSPECIFIED ATRIAL FIBRILLATION 10/19/2015 SHIREEN AGARWAL N Ot N18.3 CHRONIC KIDNEY DISEASE, STAGE 3 (MODERAT 10/19/2015 SHIREEN AGARWAL N Ot 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 11/16/2015 SHIREEN AGARWAL N Ot D50.9 IRON DEFICIENCY ANEMIA, UNSPECIFIED 11/16/2015 SHIREEN AGARWAL N Ot 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 12/03/2015 SHIREEN AGARWAL N Ot D50.9 IRON DEFICIENCY ANEMIA, UNSPECIFIED 12/03/2015 SHIREEN AGARWAL N Ot 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 01/03/2016 Ot 272.4 HYPE RLIPIDEMIA NEC/NOS 01/03/2016 Ot 250.00 AWA B NALLELY WO COMPL, TYPE II OR UNSPEC TY 01/03/2016 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 Ot 574.20 CHOLELITHIASIS NOS 01/03/2016 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 Ot 789.1 HEPATOMEGALY 01/03/2016 LINDA KHOURY [...] HYPERTENSION NOS 01/03/2016 LINDA KHOURY FACC, ARNIE [facility] CCDS Ot 427.0 [place] ATRIAL TACHYCARDIA 01/03/2016 LINDA KHOURY FAC, ARNIE FACP CCDS Ot 785.1 PALPITATIONS 01/03/2016 Ot 244.9 HYPO THYROIDISM NOS 01/03/2016 Ot 280.9 IRON DEFIC ANEMIA NOS 01/03/2016 Ot 585.3 BPM ARCHITECT LEANDRO KIDNEY DISEASE, STAGE III (MODER 01/03/2016 Ot V58.69 OTH MED,LT,CURRENT USE 01/03/2016 Ot 250.02 AWA B NALLELY WO COMPL, TYPE II OR UNSPEC TY 01/03/2016 HARVEY KHOURY, CLAUDE S Ot 574.20 CHOLELITHIASIS NOS 01/03/2016 HARVEY KHOURY, CLAUED Clement Ot 585.2 CHRONIC KIDNEY DISEASE, STAGE [...] 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 01/03/2016 SHIREEN AGARWAL Ot I12.9 HYPERTENSIVE CHRONIC KIDNEY DISEASE W ST 01/03/2016 SHIREEN AGARWAL Ot I25.10 ATHSCL HEART DISEASE OF [place] CORONARY 01/03/2016 SHIREEN AGARWAL Ot I48.91 UNSPECIFIED ATRIAL FIBRILLATION 01/03/2016 ANY, BOBAN N Ot N18.3 CHRONIC KIDNEY DISEASE, STAGE 3 (MODERAT 01/03/2016 ANYSHIREEN BALDWIN N Ot Z79.899 OTHER DETENTION (CURRENT) DRUG THERAPY 01/03/2016 SHIREEN AGARWAL N Ot D50.9 IRON DEFICIENCY ANEMIA, UNSPECIFIED 01/03/2016 SHIREEN AGARWAL N Ot 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 01/03/2016 SHIREEN AGARWAL N Ot D64.9 ANEMIA, UNSPECIFIED 01/03/2016 SHIREEN AGARWAL N Ot E03.9 HYPOTHYROIDISM, UNSPECIFIED 01/03/2016 ANY BOBAN N Ot 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 01/03/2016 JJ AGARWALONDINA N Ot I12.9 HYPERTENSIVE CHRONIC KIDNEY DISEASE W ST 01/03/2016 SHIREEN AGARWAL N Ot I25.10 ATHSCL HEART DISEASE OF [place] CORONARY 01/03/2016 SHIREEN AGARWAL N Ot I48.91 UNSPECIFIED ATRIAL FIBRILLATION 01/03/2016 SHIREEN AGARWAL N Ot N18.3 CHRONIC KIDNEY DISEASE, STAGE 3 (MODERAT 01/03/2016 SHIREEN AGARWAL N Ot Z79.899 OTHER DETENTION (CURRENT) DRUG THERAPY 01/03/2016 Ot 272.4 HYPE RLIPIDEMIA NEC/NOS 01/03/2016 Ot 250.00 AWA B NALLELY WO COMPL, TYPE II OR UNSPEC TY 01/03/2016 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 Ot 574.20 CHOLELITHIASIS NOS 01/03/2016 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 Ot 789.1 HEPATOMEGALY 01/03/2016 LINDA KHOURY [...] 427.0 [place] ATRIAL TACHYCARDIA 01/03/[address] [facility] [place]S Ot 785.1 PALPITATIONS 01/03/2016 Ot 244.9 HYPO THYROIDISM NOS 01/03/2016 Ot 280.9 IRON DEFIC ANEMIA NOS 01/03/2016 Ot 585.3 BPM ARCHITECT LEANDRO KIDNEY DISEASE, STAGE III (MODER 01/03/2016 [...] 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 01/03/2016 SHIREEN AGARWAL Ot I12.9 HYPERTENSIVE CHRONIC KIDNEY DISEASE W ST 01/03/2016 SHIREEN AGARWAL Ot I25.10 ATHSCL HEART DISEASE OF [place] CORONARY 01/03/2016 SHIREEN AGARWAL Ot I48.91 UNSPECIFIED ATRIAL FIBRILLATION 01/03/2016 SHIREEN AGARWAL Ot N18.3 CHRONIC KIDNEY DISEASE, STAGE 3 (MODERAT 01/03/2016 SHIREEN AGARWAL Ot Z79.899 OTHER DETENTION (CURRENT) DRUG THERAPY 01/03/2016 SHIREEN AGARWAL Ot D50.9 IRON DEFICIENCY ANEMIA, UNSPECIFIED 01/03/2016 SHIREEN AGARWAL Ot Z79.899 OTHER DETENTION (CURRENT) DRUG THERAPY 01/04/2016 Ot 272.4 HYPE RLIPIDEMIA NEC/NOS 01/04/2016 Ot 250.00 AWA B NALLELY WO COMPL, TYPE II OR UNSPEC TY 01/04/2016 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 Ot 574.20 CHOLELITHIASIS NOS 01/04/2016 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 Ot 789.1 HEPATOMEGALY 01/04/2016 LINDA KHOURY [...] IRON DEFIC ANEMIA NOS 01/04/2016 Ot 585.3 BPM ARCHITECT LEANDRO KIDNEY DISEASE, STAGE III (MODER 01/04/2016 [...] AGARWALAN N Ot D64.9 ANEMIA, UNSPECIFIED 01/04/2016 ANYSHIREEN BALDWIN N Ot E03.9 HYPOTHYROIDISM, UNSPECIFIED 01/04/2016 ANY, BOBAN N Ot 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 01/04/2016 SHIREEN AGARWAL N Ot I12.9 HYPERTENSIVE CHRONIC KIDNEY DISEASE W ST 01/04/2016 ANYJJ BALDWINAN N Ot I25.10 ATHSCL HEART DISEASE OF [place] CORONARY 01/04/2016 ANYSHIREEN BALDWIN N Ot I48.91 UNSPECIFIED ATRIAL FIBRILLATION 01/04/2016 ANY, BOBAN N Ot N18.3 CHRONIC KIDNEY DISEASE, STAGE 3 (MODERAT 01/04/2016 ANY BOBAN N Ot Z79.899 OTHER DETENTION (CURRENT) DRUG THERAPY 01/04/2016 ANY BOBAN N Ot D50.9 IRON DEFICIENCY ANEMIA, UNSPECIFIED 01/04/2016 ANY, BOBAN N Ot Z79.899 OTHER DETENTION (CURRENT) DRUG THERAPY 01/07/2016 ANY, BOBAN N Ot D50.9 IRON DEFICIENCY ANEMIA, UNSPECIFIED 01/07/2016 ANY, BOBAN N Ot 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 01/13/2016 ANY, BOBAN N Ot D50.9 IRON DEFICIENCY ANEMIA, UNSPECIFIED 01/13/2016 ANY, BOBAN N Ot Z79.899 OTHER DETENTION (CURRENT) DRUG THERAPY 08/05/2016 Ot 250.00 AWA B NALLELY WO COMPL, TYPE II OR UNSPEC TY 08/05/2016 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 Ot 574.20 CHOLELITHIASIS NOS 08/05/2016 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 Ot 789.1 HEPATOMEGALY 08/05/2016 LINDA KHOURY [...] 427.0 [place] ATRIAL TACHYCARDIA 08/05/2016 LINDA KHOURY FAC, ALI FACP CCDS Ot 785.1 PALPITATIONS 08/05/2016 Ot 244.9 HYPO THYROIDISM NOS 08/05/2016 Ot 280.9 IRON DEFIC ANEMIA NOS 08/05/2016 Ot 585.3 BPM ARCHITECT LEANDRO KIDNEY DISEASE, STAGE III (MODER 08/05/2016 Ot V58.69 OTH MED,LT,CURRENT USE 08/05/2016 Ot 250.02 AWA Eduardo YODER COMPL, TYPE II OR UNSPEC TY 08/05/2016 HARVEY KHOURY, CLAUDE S Ot 574.20 CHOLELITHIASIS NOS 08/05/2016 HARVEY KHOURY, [...] 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 08/05/2016 ANY, BOBAN N Ot I12.9 HYPERTENSIVE CHRONIC KIDNEY DISEASE W ST 08/05/2016 ANY, BOBAN N Ot I25.10 ATHSCL HEART DISEASE OF [place] CORONARY 08/05/2016 ANY, BOBAN N Ot I48.91 UNSPECIFIED ATRIAL FIBRILLATION 08/05/2016 ANY, BOBAN N Ot N18.3 CHRONIC KIDNEY DISEASE, STAGE 3 (MODERAT 08/05/2016 ANY, BOBAN N Ot 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 09/15/2016 ANY, BOBAN N Ot D50.9 IRON DEFICIENCY ANEMIA, UNSPECIFIED 09/15/2016 ANY, BOBAN N Ot E03.9 HYPOTHYROIDISM, UNSPECIFIED 09/15/2016 ANY, BOBAN N Ot 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 09/15/2016 ANY, BOBAN N Ot I12.9 HYPERTENSIVE CHRONIC KIDNEY DISEASE W ST 09/15/2016 ANY, BOBAN N Ot I25.10 ATHSCL HEART DISEASE OF [place] CORONARY 09/15/2016 ANY, BOBAN N Ot I48.91 UNSPECIFIED ATRIAL FIBRILLATION 09/15/2016 ANY, BOBAN N Ot N18.3 CHRONIC KIDNEY DISEASE, STAGE 3 (MODERAT 09/15/2016 ANY, BOBAN N Ot Z79.899 OTHER DETENTION (CURRENT) DRUG THERAPY 09/17/2016 Ot 250.00 AWA B NALLELY WO COMPL, TYPE II OR UNSPEC TY 09/17/2016 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 Ot 574.20 CHOLELITHIASIS NOS 09/17/2016 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 Ot 789.1 HEPATOMEGALY 09/17/2016 LINDA KHOURY FACC, ANRIE SHAW CCDS Ot 401.9 HYPERTENSION NOS 09/17/2016 LINDA [...] IRON DEFIC ANEMIA NOS 09/17/2016 Ot 585.3 BPM ARCHITECT LEANDRO KIDNEY DISEASE, STAGE III (MODER 09/17/2016 [...] 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 09/17/2016 ANY, BOBAN N Ot I12.9 HYPERTENSIVE CHRONIC KIDNEY DISEASE W ST 09/17/2016 ANY, BOBAN N Ot I25.10 ATHSCL HEART DISEASE OF [place] CORONARY 09/17/2016 ANY, BOBONDINA N Ot I48.91 UNSPECIFIED ATRIAL FIBRILLATION 09/17/2016 ANY, BOBAN N Ot N18.3 CHRONIC KIDNEY DISEASE, STAGE 3 (MODERAT 09/17/2016 ANY, BOBAN N Ot Z79.899 OTHER DETENTION (CURRENT) DRUG THERAPY 09/17/2016 SHIREEN AGARWAL N Ot D50.9 IRON DEFICIENCY ANEMIA, UNSPECIFIED 09/17/2016 ANYSHIREEN BALDWIN N Ot E03.9 HYPOTHYROIDISM, UNSPECIFIED 09/17/2016 ANY, BOBAN N Ot 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 09/17/2016 ANY, BOBAN N Ot I12.9 HYPERTENSIVE CHRONIC KIDNEY DISEASE W ST 09/17/2016 ANY, BOBAN N Ot I25.10 ATHSCL HEART DISEASE OF [place] CORONARY 09/17/2016 ANY, BOBONDINA N Ot I48.91 UNSPECIFIED ATRIAL FIBRILLATION 09/17/2016 ANY, BOBONDINA N Ot N18.3 CHRONIC KIDNEY DISEASE, STAGE 3 (MODERAT 09/17/2016 ANY, BOBAN N Ot Z79.899 OTHER DETENTION (CURRENT) DRUG THERAPY 09/17/2016 KIERAN KHOURY, BERNY Champion Ot I25.10 ATHSCL HEART DISEASE OF [place] CORONARY 09/17/2016 Ot 250.00 AWA B NALLELY WO COMPL, TYPE II OR UNSPEC TY 09/17/2016 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 Ot 574.20 CHOLELITHIASIS NOS 09/17/2016 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 Ot 789.1 HEPATOMEGALY 09/17/2016 LINDA KHOURY [...] IRON DEFIC ANEMIA NOS 09/17/2016 Ot 585.3 BPM ARCHITECT LEANDRO KIDNEY DISEASE, STAGE III (MODER 09/17/2016 Ot V58.69 OTH MED,LT,CURRENT USE 09/17/2016 Ot 250.02 AWA B NALLELY WO COMPL, TYPE II OR UNSPEC TY 09/17/2016 HARVEY KHOURY, CLAUDE S Ot 574.20 CHOLELITHIASIS NOS 09/17/2016 HARVEY KHOURY, AHMED S Ot 585.2 CHRONIC KIDNEY DISEASE, STAGE [...] 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 09/17/2016 ANYSHIREEN BALDWIN N Ot I12.9 HYPERTENSIVE CHRONIC KIDNEY DISEASE W ST 09/17/2016 ANYSHIREEN BALDWIN N Ot I25.10 ATHSCL HEART DISEASE OF [place] CORONARY 09/17/2016 SHIREEN AGARWAL N Ot I48.91 UNSPECIFIED ATRIAL FIBRILLATION 09/17/2016 SHIREEN AGARWAL N Ot N18.3 CHRONIC KIDNEY DISEASE, STAGE 3 (MODERAT 09/17/2016 SHIREEN AGARWAL N Ot 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 09/17/2016 SHIREEN AGARWAL N Ot D50.9 IRON DEFICIENCY ANEMIA, UNSPECIFIED 09/17/2016 SHIREEN AGARWAL N Ot E03.9 HYPOTHYROIDISM, UNSPECIFIED 09/17/2016 ANYSHIREEN BALDWIN N Ot 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 09/17/2016 ANYSHIREEN BALDWIN N Ot I12.9 HYPERTENSIVE CHRONIC KIDNEY DISEASE W ST 09/17/2016 ANYSHIREEN BALDWIN N Ot I25.10 ATHSCL HEART DISEASE OF [place] CORONARY 09/17/2016 ANYSHIREEN BALDWIN N Ot I48.91 UNSPECIFIED ATRIAL FIBRILLATION 09/17/2016 SHIREEN AGARWAL N Ot N18.3 CHRONIC KIDNEY DISEASE, STAGE 3 (MODERAT 09/17/2016 ANYSHIREEN BALDWIN N Ot 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 09/17/2016 KIERAN KHOURY, BERNY Champion Ot I25.10 ATHSCL HEART DISEASE OF [place] CORONARY 09/17/2016 Ot 250.00 AWA B NALLELY WO COMPL, TYPE II OR UNSPEC TY 09/17/2016 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 Ot 574.20 CHOLELITHIASIS NOS 09/17/2016 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 Ot 789.1 HEPATOMEGALY 09/17/2016 LINDA KHOURY FACFernanda, ALI FACP CCDS Ot 401.9 HYPERTENSION NOS 09/17/2016 LINDA GONZALESC, ALI FACP CCDS Ot 414.00 CORON ATHEROSCLER NOS TYPE VESSEL, NATIV 09/17/2016 LINDA GONZALESC, ALI FACP CCDS Ot 427.31 ATRIAL FIBRILLATION 09/17/2016 TY KHOURY, TONIE Diaz Ot V72. 84 EXAM PRE-OPERATIVE NOS 09/17/2016 LINDA MD FACC, ALI FACP CCDS Ot 250.00 DIAB NALLELY WO COMPL, TYPE II OR UNSPEC TY 09/17/2016 LINDA KHOURY FAC, ALI FACP CCDS Ot 401.9 HYPERTENSION NOS 09/17/[address] [facility], ARNIE FACP CCDS Ot 427.0 PAROX ATRIAL TACHYCARDIA 09/17/[address] [facility], ALI FACP CCDS Ot 785.1 PALPITATIONS 09/17/2016 Ot 244.9 HYPO THYROIDISM NOS 09/17/2016 Ot 280.9 IRON DEFIC ANEMIA NOS 09/17/2016 Ot 585.3 BPM ARCHITECT LEANDRO KIDNEY DISEASE, STAGE III (MODER 09/17/2016 [...] 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 09/17/2016 SHIREEN AGARWAL Ot I12.9 HYPERTENSIVE CHRONIC KIDNEY DISEASE W ST 09/17/2016 ANY, BOBAN N Ot I25.10 ATHSCL HEART DISEASE OF [place] CORONARY 09/17/2016 ANY, BOBAN N Ot I48.91 UNSPECIFIED ATRIAL FIBRILLATION 09/17/2016 ANY, BOBAN N Ot N18.3 CHRONIC KIDNEY DISEASE, STAGE 3 (MODERAT 09/17/2016 ANY, BOBAN N Ot 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 09/17/2016 ANY, BOBAN N Ot D50.9 IRON DEFICIENCY ANEMIA, UNSPECIFIED 09/17/2016 ANY, BOBAN N Ot E03.9 HYPOTHYROIDISM, UNSPECIFIED 09/17/2016 ANY, BOBAN N Ot 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 09/17/2016 ANY, BOBAN N Ot I12.9 HYPERTENSIVE CHRONIC KIDNEY DISEASE W ST 09/17/2016 ANY, BOBAN N Ot I25.10 ATHSCL HEART DISEASE OF [place] CORONARY 09/17/2016 ANY, BOBAN N Ot I48.91 UNSPECIFIED ATRIAL FIBRILLATION 09/17/2016 ANY, BOBAN N Ot N18.3 CHRONIC KIDNEY DISEASE, STAGE 3 (MODERAT 09/17/2016 ANY, BOBAN N Ot 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 09/17/2016 BERNY ALCARAZ MD Ot I25.10 ATHSCL HEART DISEASE OF [place] CORONARY 09/17/2016 ANY, BOBAN N Ot D50.9 IRON DEFICIENCY ANEMIA, UNSPECIFIED 09/17/2016 ANY, BOBAN N Ot E03.9 HYPOTHYROIDISM, UNSPECIFIED 09/17/2016 ANY, BOBAN N Ot 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 09/17/2016 ANY, BOBAN N Ot I12.9 HYPERTENSIVE CHRONIC KIDNEY DISEASE W ST 09/17/2016 ANY, BOBAN N Ot I25.10 ATHSCL HEART DISEASE OF [place] CORONARY 09/17/2016 ANY, BOBAN N Ot I48.91 UNSPECIFIED ATRIAL FIBRILLATION 09/17/2016 ANY, BOBAN N Ot N18.3 CHRONIC KIDNEY DISEASE, STAGE 3 (MODERAT 09/17/2016 ANY, BOBAN N Ot Z79.899 OTHER DETENTION (CURRENT) DRUG THERAPY 09/17/2016 BERNY ALCARAZ MD R Ot I25.10 ATHSCL HEART DISEASE OF [place] CORONARY 09/17/2016 BERNY ALCARAZ MD Ot I25.10 ATHSCL HEART DISEASE OF [place] CORONARY 10/09/2016 BERNY ALCARAZ MD Ot I25.10 ATHSCL HEART DISEASE OF [place] CORONARY 10/09/2016 Ot 250.00 AWA Eduardo BROWNING WO COMPL, TYPE II OR UNSPEC TY 10/09/2016 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 Ot 574.20 CHOLELITHIASIS NOS 10/09/2016 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5 HYPERLIPIDEMIA, UNSPECIFIED 10/09/2016 OVI [...] 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 10/09/2016 ANY, BOBAN N Ot I12.9 HYPERTENSIVE CHRONIC KIDNEY DISEASE W ST 10/09/2016 ANY, BOBAN N Ot I25.10 ATHSCL HEART DISEASE OF [place] CORONARY 10/09/2016 ANY, BOBAN N Ot I48.91 UNSPECIFIED ATRIAL FIBRILLATION 10/09/2016 ANY, BOBAN N Ot N18.3 CHRONIC KIDNEY DISEASE, STAGE 3 (MODERAT 10/09/2016 ANY, BOBAN N Ot 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 10/09/2016 ANY, BOBAN N Ot D50.9 IRON DEFICIENCY ANEMIA, UNSPECIFIED 10/09/2016 ANY, BOBAN N Ot E03.9 HYPOTHYROIDISM, UNSPECIFIED 10/09/2016 ANY, BOBAN N Ot 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 10/09/2016 ANY, BOBAN N Ot I12.9 HYPERTENSIVE CHRONIC KIDNEY DISEASE W ST 10/09/2016 ANY, BOBAN N Ot I25.10 ATHSCL HEART DISEASE OF [place] CORONARY 10/09/2016 ANY, BOBAN N Ot I48.91 UNSPECIFIED ATRIAL FIBRILLATION 10/09/2016 ANY, BOBAN N Ot N18.3 CHRONIC KIDNEY DISEASE, STAGE 3 (MODERAT 10/09/2016 ANY, BOBAN N Ot 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 10/09/2016 KIERAN KHOURY, BERNY Champion Ot I25.10 ATHSCL HEART DISEASE OF [place] CORONARY 10/09/2016 KIERAN KHOURY, M ROMA Ot I47 .1 SUPRAVENTRICULAR TACHYCARDIA 10/09/2016 KIERAN KHOURY, Wei BRANDON Ot I48.91 UNSPECIFIED ATRIAL FIBRILLATION 10/30/2016 KIERAN KHOURY, BERNY R Ot I25.10 ATHSCL HEART DISEASE OF [place] CORONARY 11/03/2016 ANY, BOBAN N Ot D50.9 IRON DEFICIENCY ANEMIA, UNSPECIFIED 11/03/2016 ANY, BOBAN N Ot E03.9 HYPOTHYROIDISM, UNSPECIFIED 11/03/2016 ANY, BOBAN N Ot 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 11/03/2016 ANY, BOBAN N Ot I12.9 HYPERTENSIVE CHRONIC KIDNEY DISEASE W ST 11/03/2016 ANY, BOBAN N Ot I25.10 ATHSCL HEART DISEASE OF [place] CORONARY 11/03/2016 ANY, BOBAN N Ot I48.91 UNSPECIFIED ATRIAL FIBRILLATION 11/03/2016 ANY, BOBAN N Ot N18.3 CHRONIC KIDNEY DISEASE, STAGE 3 (MODERAT 11/03/2016 ANY, BOBAN N Ot Z79.899 OTHER DETENTION (CURRENT) DRUG THERAPY 11/04/2016 ANY, BOBAN N Ot D50.9 IRON DEFICIENCY ANEMIA, UNSPECIFIED 11/04/2016 ANY, BOBAN N Ot E03.9 HYPOTHYROIDISM, UNSPECIFIED 11/04/2016 ANY, BOBAN N Ot 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 11/04/2016 ANY, BOBAN N Ot I12.9 HYPERTENSIVE CHRONIC KIDNEY DISEASE W ST 11/04/2016 ANY, BOBAN N Ot I25.10 ATHSCL HEART DISEASE OF [place] CORONARY 11/04/2016 ANY, BOBAN N Ot I48.91 UNSPECIFIED ATRIAL FIBRILLATION 11/04/2016 ANY, BOBAN N Ot N18.3 CHRONIC KIDNEY DISEASE, STAGE 3 (MODERAT 11/04/2016 ANY, BOBAN N Ot 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 11/17/2016 KIERAN KHOURY, BERNY R Ot I25.10 ATHSCL HEART DISEASE OF [place] CORONARY 11/18/2016 ANY, BOBAN N Ot D50.9 IRON DEFICIENCY ANEMIA, UNSPECIFIED 11/18/2016 ANY, BOBAN N Ot E03.9 HYPOTHYROIDISM, UNSPECIFIED 11/18/2016 ANY, BOBAN N Ot 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 11/18/2016 ANY, BOBAN N Ot I12.9 HYPERTENSIVE CHRONIC KIDNEY DISEASE W ST 11/18/2016 ANY, BOBAN N Ot I25.10 ATHSCL HEART DISEASE OF [place] CORONARY 11/18/2016 ANY, BOBAN N Ot I48.91 UNSPECIFIED ATRIAL FIBRILLATION 11/18/2016 ANY, BOBAN N Ot N18.3 CHRONIC KIDNEY DISEASE, STAGE 3 (MODERAT 11/18/2016 ANY, BOBAN N Ot 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 12/10/2016 ANY, BOBAN N Ot D50.9 IRON DEFICIENCY ANEMIA, UNSPECIFIED 12/10/2016 ANY, BOBAN N Ot E03.9 HYPOTHYROIDISM, UNSPECIFIED 12/10/2016 ANY, BOBAN N Ot 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 12/10/2016 ANY, BOBAN N Ot I12.9 HYPERTENSIVE CHRONIC KIDNEY DISEASE W ST 12/10/2016 ANY, BOBAN N Ot I25.10 ATHSCL HEART DISEASE OF [place] CORONARY 12/10/2016 ANY, BOBAN N Ot I48.91 UNSPECIFIED ATRIAL FIBRILLATION 12/10/2016 ANY, BOBAN N Ot N18.3 CHRONIC KIDNEY DISEASE, STAGE 3 (MODERAT 12/10/2016 ANY, BOBAN N Ot 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 12/12/2016 ANY, BOBAN N Ot D50.9 IRON DEFICIENCY ANEMIA, UNSPECIFIED 12/12/2016 ANY, BOBAN N Ot E03.9 HYPOTHYROIDISM, UNSPECIFIED 12/12/2016 ANY, BOBAN N Ot 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 12/12/2016 ANY, BOBAN N Ot I12.9 HYPERTENSIVE CHRONIC KIDNEY DISEASE W ST 12/12/2016 ANY, BOBAN N Ot I25.10 ATHSCL HEART DISEASE OF [place] CORONARY 12/12/2016 ANY, BOBAN N Ot I48.91 UNSPECIFIED ATRIAL FIBRILLATION 12/12/2016 ANY, BOBAN N Ot N18.3 CHRONIC KIDNEY DISEASE, STAGE 3 (MODERAT 12/12/2016 ANY, BOBAN N Ot Z79.899 OTHER DETENTION (CURRENT) DRUG THERAPY 12/16/2016 KIERAN KHOURY, Wei BRANDON Ot I47 .1 SUPRAVENTRICULAR TACHYCARDIA 12/16/2016 KIERAN KHOURY, Wei BRANDON Ot I48.91 UNSPECIFIED ATRIAL FIBRILLATION 12/20/2016 KIERAN KHOURY, Wei BRANDON Ot I47 .1 SUPRAVENTRICULAR TACHYCARDIA 12/20/2016 KIERAN KHOURY, Wei BRANDON Ot I48.91 UNSPECIFIED ATRIAL FIBRILLATION 12/31/2016 Ot 250.00 AWA B NALLELY WO COMPL, TYPE II OR UNSPEC TY 12/31/2016 ROB CHICHI Kelin CUSTODIAL MAINTENANCE WORKER Ot 574.20 CHOLELITHIASIS NOS 12/31/2016 ROB CHICHI H CUSTODIAL MAINTENANCE WORKER Ot 789.1 HEPATOMEGALY 12/31/2016 LINDA KHOURY [...] IRON DEFIC ANEMIA NOS 12/31/2016 Ot 585.3 BPM ARCHITECT LEANDRO KIDNEY DISEASE, STAGE III (MODER 12/31/2016 Ot V58.69 OTH MED,LT,CURRENT USE 12/31/2016 Ot 250.02 AWA B NALLELY WO COMPL, TYPE II OR UNSPEC TY 12/31/2016 HARVEY KHOURY, CLAUDE Clement Ot 574.20 CHOLELITHIASIS NOS 12/31/2016 HARVEY KHOURY, CLAUDE Clement Ot 585.2 CHRONIC KIDNEY DISEASE, STAGE II (MILD) 12/31/2016 OVI KHOURY, FLORIDALMAU Ot E03.9 HYPOTHYROIDISM, UNSPECIFIED 12/31/2016 OVI KHOURY, TORI-FRANKIE Ot E11.6 5 TYPE 2 DIABETES MELLITUS WITH HYPERGLYCE 12/31/2016 OVI KHOURY, TORI-FRANKIE Ot E78.5 HYPERLIPIDEMIA, UNSPECIFIED 12/31/2016 OVI KHOURY, TORI-FRANKIE Ot I10 ESSENTIAL (PRIMARY) HYPERTENSION 12/31/2016 OVI KHOURY, FLORIDALMAU Ot E03.9 HYPOTHYROIDISM, UNSPECIFIED 12/31/2016 OVI KHOURY, TORI-FRANKIE Ot E11.9 TYPE 2 DIABETES MELLITUS WITHOUT COMPLIC 12/31/2016 OVI KHOURY, TORI-FRANKIE Ot E78.5 HYPERLIPIDEMIA, UNSPECIFIED 12/31/2016 OVI KHOURY, TORI-FRANKIE Ot I10 ESSENTIAL (PRIMARY) HYPERTENSION 12/31/2016 SHIREEN AGARWAL N Ot D64.9 ANEMIA, UNSPECIFIED 12/31/2016 SHIREEN AGARWAL N Ot E03.9 HYPOTHYROIDISM, UNSPECIFIED 12/31/2016 SHIREEN AGARWAL N Ot 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 12/31/2016 SHIREEN AGARWAL N Ot I12.9 HYPERTENSIVE CHRONIC KIDNEY DISEASE W ST 12/31/2016 SHIREEN AGARWAL N Ot I25.10 ATHSCL HEART DISEASE OF [place] CORONARY 12/31/2016 SHIREEN AGARWAL N Ot I48.91 UNSPECIFIED ATRIAL FIBRILLATION 12/31/2016 SHIREEN AGARWAL N Ot N18.3 CHRONIC KIDNEY DISEASE, STAGE 3 (MODERAT 12/31/2016 SHIREEN AGARWAL N Ot 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 12/31/2016 KIERAN KHOURY, BERNY R Ot I25.10 ATHSCL HEART DISEASE OF [place] CORONARY 12/31/2016 KIERAN KHOURY, BERNY R Ot I25.10 ATHSCL HEART DISEASE OF [place] CORONARY 12/31/2016 SHIREEN AGARWAL N Ot D50.9 IRON DEFICIENCY ANEMIA, UNSPECIFIED 12/31/2016 SHIREEN AGARWAL N Ot E03.9 HYPOTHYROIDISM, UNSPECIFIED 12/31/2016 ANY BOBAN N Ot 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 12/31/2016 SHIREEN AGARWAL N Ot I12.9 HYPERTENSIVE CHRONIC KIDNEY DISEASE W ST 12/31/2016 SHIREEN AGARWAL N Ot I25.10 ATHSCL HEART DISEASE OF [place] CORONARY 12/31/2016 SHIREEN AGARWAL Solange Ot I48.91 UNSPECIFIED ATRIAL FIBRILLATION 12/31/2016 SHIREEN AGARWAL Ot N18.3 CHRONIC KIDNEY DISEASE, STAGE 3 (MODERAT 12/31/2016 SHIREEN AGARWAL Solange Ot Z79.899 OTHER DETENTION (CURRENT) DRUG THERAPY 12/31/2016 KIERAN KHOURY, Wei BRANDON Ot I47 .1 SUPRAVENTRICULAR TACHYCARDIA 12/31/2016 KIERAN KHOURY, Wei BRANDON Ot I48.91 UNSPECIFIED ATRIAL FIBRILLATION 01/01/2017 KIERAN KHOURY, Wei BRANDON Ot I47 .1 SUPRAVENTRICULAR TACHYCARDIA 01/01/2017 KIERAN KHOURY, Wei BRANDON Ot I48.91 UNSPECIFIED ATRIAL FIBRILLATION 01/01/2017 NWAGWU, ISIDORE O 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 Ot D64.9 ANEMIA, UNSPECIFIED 01/01/2017 NWAGWU, ISIDORE O 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 Ot D64.9 ANEMIA, UNSPECIFIED 01/02/2017 SABRINA ROSSI DO D Ot D50. 9 IRON DEFICIENCY ANEMIA, UNSPECIFIED 01/02/2017 FLO WOOD SABRINA D Ot E03. 9 HYPOTHYROIDISM, UNSPECIFIED 01/02/2017 FLO WOOD SABRINA D Ot E11. 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 01/02/2017 FLO WOOD SABRINA D Ot E78. 5 HYPERLIPIDEMIA, UNSPECIFIED 01/02/2017 FLO WOOD SABRINA D Ot I12. 9 HYPERTENSIVE CHRONIC KIDNEY DISEASE W ST 01/02/2017 SABRINA ROSSI DO D Ot I25. 10 ATHSCL HEART DISEASE OF [place] CORONARY 01/02/2017 FLO WOOD SABRINA D Ot I47. 1 SUPRAVENTRICULAR TACHYCARDIA 01/02/2017 FLO WOOD SABRINA D Ot I48. 91 UNSPECIFIED ATRIAL FIBRILLATION 01/02/2017 FLO WOOD SABRINA D Ot K29. 70 GASTRITIS, UNSPECIFIED, WITHOUT BLEEDING 01/02/2017 FLO WOOD SABRINA D Ot K44. 9 DIAPHRAGMATIC HERNIA WITHOUT OBSTRUCTION 01/02/2017 FLO WOOD SABRINA D Ot K64. 9 UNSPECIFIED HEMORRHOIDS 01/02/2017 SABRINA ROSSI DO D Ot N18. 3 CHRONIC KIDNEY DISEASE, STAGE 3 (MODERAT 01/02/2017 SABRINA ROSSI DO Ot R19. 5 OTHER FECAL ABNORMALITIES 01/02/2017 SABRINA ROSSI DO Ot Z79. 01 DETENTION (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 OF ANTICOAGULANT 01/02/2017 SABRINA ROSSI DO Ot Z79. 84 DRAY DRIVER (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 OF ORAL HYPOGLYC 01/02/2017 SABRINA ROSSI DO Ot Z79.899 OTHER DETENTION (CURRENT) DRUG THERAPY 01/02/2017 SABRINA ROSSI DO Ot Z80. 0 FAMILY HISTORY OF MALIGNANT NEOPLASM OF 01/02/2017 SABRINA ROSSI DO Ot Z95. 5 PRESENCE OF CORONARY ANGIOPLASTY IMPLANT 01/06/2017 SABRINA ROSSI DO Ot D50. 9 IRON DEFICIENCY ANEMIA, UNSPECIFIED 01/06/2017 SABRINA ROSSI DO Ot E03. 9 HYPOTHYROIDISM, UNSPECIFIED 01/06/2017 SABRINA ROSSI DO Ot E11. 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 01/06/2017 SABRINA ROSSI DO Ot E78. 5 HYPERLIPIDEMIA, UNSPECIFIED 01/06/2017 SABRINA ROSSI DO Ot I12. 9 HYPERTENSIVE CHRONIC KIDNEY DISEASE W ST 01/06/2017 SABRINA ROSSI DO Ot I25. 10 ATHSCL HEART DISEASE OF [place] CORONARY 01/06/2017 SABRINA ROSSI DO Ot I47. [...] 01/06/2017 SABRINA ROSSI DO Ot Z79. 01 DRAY DRIVER (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 OF ANTICOAGULANT 01/06/2017 SABRINA ROSSI DO Ot Z79. 84 DETENTION (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 OF ORAL HYPOGLYC 01/06/2017 SABRINA ROSSI DO Ot Z79.899 OTHER DETENTION (CURRENT) DRUG THERAPY 01/06/2017 SABRINA ROSSI DO Joe Ot Z80. 0 FAMILY HISTORY OF MALIGNANT NEOPLASM OF 01/06/2017 SABRINA ROSSI DO Joe Ot Z95. 5 PRESENCE OF CORONARY ANGIOPLASTY IMPLANT 01/29/2017 Ot 250.00 AWA B NALLELY WO COMPL, TYPE II OR UNSPEC TY 01/29/2017 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 Ot 574.20 CHOLELITHIASIS NOS 01/29/2017 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 Ot 789.1 HEPATOMEGALY 01/29/2017 LINDA KHOURY [...] IRON DEFIC ANEMIA NOS 01/29/2017 Ot 585.3 BPM ARCHITECT LEANDRO KIDNEY DISEASE, STAGE III (MODER 01/29/2017 Ot V58.69 OTH MED,LT,CURRENT USE 01/29/2017 Ot 250.02 AWA Eduardo BROWNING WO COMPL, TYPE II OR UNSPEC TY 01/29/2017 HARVEY KHOURY, CLAUDE Clement Ot 574.20 CHOLELITHIASIS NOS 01/29/2017 HARVEY KHOURY, CLAUDE Clement Ot 585.2 CHRONIC KIDNEY DISEASE, STAGE II (MILD) 01/29/2017 OVI KHOURY, WU Ot E03.9 HYPOTHYROIDISM, UNSPECIFIED 01/29/2017 OVI KHOURY, WU Ot E11.6 5 TYPE 2 DIABETES MELLITUS WITH HYPERGLYCE 01/29/2017 DIOR MD, TORI-FRANKIE Ot E78.5 HYPERLIPIDEMIA, UNSPECIFIED 01/29/2017 OVI KHOURY, TORI-FRANKIE Ot I10 ESSENTIAL (PRIMARY) HYPERTENSION 01/29/2017 OVI KHOURY, TORI-FRANKIE Ot E03.9 HYPOTHYROIDISM, UNSPECIFIED 01/29/2017 OVI KHOURY, TORI-FRANKIE Ot E11.9 TYPE 2 DIABETES MELLITUS WITHOUT COMPLIC 01/29/2017 OVI KHOURY, TORI-FRANKIE Ot E78.5 HYPERLIPIDEMIA, UNSPECIFIED 01/29/2017 OVI KHOURY, TORI-FRANKIE Ot I10 ESSENTIAL (PRIMARY) HYPERTENSION 01/29/2017 JJ AGARWALAN N Ot D64.9 ANEMIA, UNSPECIFIED 01/29/2017 ANYSHIREEN BALDWIN N Ot E03.9 HYPOTHYROIDISM, UNSPECIFIED 01/29/2017 ANY, BOBAN N Ot 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 01/29/2017 ANY BOBAN N Ot I12.9 HYPERTENSIVE CHRONIC KIDNEY DISEASE W ST 01/29/2017 JJ AGARWALAN N Ot I25.10 ATHSCL HEART DISEASE OF [place] CORONARY 01/29/2017 ANY BOBAN N Ot I48.91 UNSPECIFIED ATRIAL FIBRILLATION 01/29/2017 ANY BOBAN N Ot N18.3 CHRONIC KIDNEY DISEASE, STAGE 3 (MODERAT 01/29/2017 SHIREEN AGARWAL N Ot Z79.899 OTHER DETENTION (CURRENT) DRUG THERAPY 01/29/2017 KIERAN KHOURY, BERNY R Ot I25.10 ATHSCL HEART DISEASE OF [place] CORONARY 01/29/2017 KIERAN KHOURY, BERNY R Ot I25.10 ATHSCL HEART DISEASE OF [place] CORONARY 01/29/2017 SHIREEN AGARWAL N Ot D50.9 IRON DEFICIENCY ANEMIA, UNSPECIFIED 01/29/2017 JJ AGARWALAN N Ot E03.9 HYPOTHYROIDISM, UNSPECIFIED 01/29/2017 ANY, BOBAN N Ot 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 01/29/2017 ANY, BOBAN N Ot I12.9 HYPERTENSIVE CHRONIC KIDNEY DISEASE W ST 01/29/2017 JJ AGARWALAN N Ot I25.10 ATHSCL HEART DISEASE OF [place] CORONARY 01/29/2017 SHIREEN AGARWAL N Ot I48.91 UNSPECIFIED ATRIAL FIBRILLATION 01/29/2017 ANY BOBAN N Ot N18.3 CHRONIC KIDNEY DISEASE, STAGE 3 (MODERAT 01/29/2017 SHIREEN AGARWAL Solange Ot 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 01/29/2017 Wei ALCARAZ MD [...] II OR UNSPEC TY 01/29/2017 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 Ot 574.20 CHOLELITHIASIS NOS 01/29/2017 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 Ot 789.1 HEPATOMEGALY 01/29/2017 LINDA KHOURY [...] IRON DEFIC ANEMIA NOS 01/29/2017 Ot 585.3 BPM ARCHITECT LEANDRO KIDNEY DISEASE, STAGE III (MODER 01/29/2017 Ot V58.69 OTH MED,LT,CURRENT USE 01/29/2017 Ot 250.02 AWA B NALLELY WO COMPL, TYPE II OR UNSPEC TY 01/29/2017 HARVEY KHOURY, CLAUDE Clement Ot 574.20 CHOLELITHIASIS NOS 01/29/2017 HARVEY KHOURY, CLUADE Clement Ot 585.2 CHRONIC [...] 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 01/29/2017 SHIREEN AGARWAL Ot I12.9 HYPERTENSIVE CHRONIC KIDNEY DISEASE W ST 01/29/2017 SHIREEN AGARWAL Ot I25.10 ATHSCL HEART DISEASE OF [place] CORONARY 01/29/2017 SHIREEN AGARWAL Ot I48.91 UNSPECIFIED ATRIAL FIBRILLATION 01/29/2017 SHIREEN AGARWAL Ot N18.3 CHRONIC KIDNEY DISEASE, STAGE 3 (MODERAT 01/29/2017 SHIREEN AGARWAL Ot Z79.899 OTHER DETENTION (CURRENT) DRUG THERAPY 01/29/2017 KIERAN KHOURY, BERNY R Ot I25.10 ATHSCL HEART DISEASE OF [place] CORONARY 01/29/2017 KIERAN KHOURY, BERNY R Ot I25.10 ATHSCL HEART DISEASE OF [place] CORONARY 01/29/2017 SHIREEN AGARWAL Ot D50.9 IRON DEFICIENCY ANEMIA, UNSPECIFIED 01/29/2017 SHIREEN AGARWAL Solange Ot E03.9 HYPOTHYROIDISM, UNSPECIFIED 01/29/2017 SHIREEN AGARWAL Solange Ot 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 01/29/2017 ANY JJONDINA Solange Ot I12.9 HYPERTENSIVE CHRONIC KIDNEY DISEASE W ST 01/29/2017 SHIREEN AGARWAL Solange Ot I25.10 ATHSCL HEART DISEASE OF [place] CORONARY 01/29/2017 ANY SHIREEN Narvaez Ot I48.91 UNSPECIFIED ATRIAL FIBRILLATION 01/29/2017 ANY JJONDINA Solange Ot N18.3 CHRONIC KIDNEY DISEASE, STAGE 3 (MODERAT 01/29/2017 SHIREEN AGARWAL Solange Ot 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 01/29/2017 KIERAN KHOURY, Wei BRANDON Ot I47 .1 SUPRAVENTRICULAR TACHYCARDIA 01/29/2017 Wei ALCARAZ MD, Ot I48.91 UNSPECIFIED ATRIAL FIBRILLATION 01/29/2017 SABRINA [...] Ot I25.1 0 ATHSCL HEART DISEASE OF [place] CORONARY 01/31/2017 GAULT MD, JAMES R Ot I48.0 PAROXYSMAL ATRIAL FIBRILLATION 01/31/2017 BRIAN KHOURY, JAMES Champion Ot I50.9 HEART FAILURE, UNSPECIFIED 01/31/2017 JAMES TORRES MD Ot I87.2 VENOUS INSUFFICIENCY (CHRONIC) (PERIPHER 01/31/2017 BRIAN KHOURY, JAMES Champion Ot K21.9 GASTRO-ESOPHAGEAL REFLUX DISEASE WITHOUT 01/31/2017 JAMES TORRES MD Ot L40.9 PSORIASIS, UNSPECIFIED 01/31/2017 JAMES TORRES MD Ot M79.8 9 OTHER SPECIFIED SOFT TISSUE DISORDERS 01/31/2017 JAMES TORRES MD Ot Z68.4 2 BODY MASS INDEX (BMI) 45.0-49.9, ADULT 01/31/2017 JAMES TORRES MD Ot Z79.0 1 DETENTION (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 OF ANTICOAGULANT 01/31/2017 JAMSE TORRES MD Ot Z95.5 PRESENCE OF CORONARY ANGIOPLASTY IMPLANT 02/11/2017 SHIREEN AGARWAL Ot D50.9 IRON DEFICIENCY ANEMIA, UNSPECIFIED 02/11/2017 SHIREEN AGARWAL Ot E03.9 HYPOTHYROIDISM, UNSPECIFIED 02/11/2017 SHIREEN AGARWAL Ot 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 02/11/2017 SHIREEN AGARWAL Ot I12.9 HYPERTENSIVE CHRONIC KIDNEY DISEASE W ST 02/11/2017 SHIREEN AGARWAL Ot I25.10 ATHSCL HEART DISEASE OF [place] CORONARY 02/11/2017 SHIREEN AGARWAL Ot I48.91 UNSPECIFIED ATRIAL FIBRILLATION 02/11/2017 SHIREEN AGARWAL Ot N18.3 CHRONIC KIDNEY DISEASE, STAGE 3 (MODERAT 02/11/2017 SHIREEN AGARWAL Ot 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 02/23/2017 KIERAN KHOURY, Wei [...] D Ot K59. 09 OTHER CONSTIPATION 03/09/2017 ANY, BOBAN N Ot D50.9 IRON DEFICIENCY ANEMIA, UNSPECIFIED 03/09/2017 ANY, JJAN N Ot E03.9 HYPOTHYROIDISM, UNSPECIFIED 03/09/2017 ANY, BOBAN N Ot 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 03/09/2017 ANY, BOBAN N Ot I12.9 HYPERTENSIVE CHRONIC KIDNEY DISEASE W ST 03/09/2017 ANY, BOBAN N Ot I25.10 ATHSCL HEART DISEASE OF [place] CORONARY 03/09/2017 ANY, BOBAN N Ot I48.91 UNSPECIFIED ATRIAL FIBRILLATION 03/09/2017 ANY, BOBAN N Ot N18.3 CHRONIC KIDNEY DISEASE, STAGE 3 (MODERAT 03/09/2017 ANY, BOBAN N Ot 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 03/10/2017 ANY, BOBAN N Ot D50.9 IRON DEFICIENCY ANEMIA, UNSPECIFIED 03/10/2017 ANY, BOBAN N Ot E03.9 HYPOTHYROIDISM, UNSPECIFIED 03/10/2017 ANY, BOBAN N Ot 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 03/10/2017 ANY, BOBAN N Ot I12.9 HYPERTENSIVE CHRONIC KIDNEY DISEASE W ST 03/10/2017 ANY, BOBAN N Ot I25.10 ATHSCL HEART DISEASE OF [place] CORONARY 03/10/2017 ANY, BOBAN N Ot I48.91 UNSPECIFIED ATRIAL FIBRILLATION 03/10/2017 ANY, BOBAN N Ot N18.3 CHRONIC KIDNEY DISEASE, STAGE 3 (MODERAT 03/10/2017 ANY, BOBAN N Ot 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 03/13/2017 ROSSI DO, SABRINA [...] 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 03/20/2017 SHIREEN AGARWAL N Ot I12.9 HYPERTENSIVE CHRONIC KIDNEY DISEASE W ST 03/20/2017 SHIREEN AGARWAL N Ot I25.10 ATHSCL HEART DISEASE OF [place] CORONARY 03/20/2017 SHIREEN AGARWAL N Ot I48.91 UNSPECIFIED ATRIAL FIBRILLATION 03/20/2017 SHIREEN AGARWAL N Ot N18.3 CHRONIC KIDNEY DISEASE, STAGE 3 (MODERAT 03/20/2017 SHIREEN AGARWAL N Ot Z79.899 OTHER DETENTION (CURRENT) DRUG THERAPY 04/01/2017 SHIREEN AGARWAL N Ot D64.9 ANEMIA, UNSPECIFIED 04/06/2017 FLO DOLALOTT D Ot K29. 80 DUODENITIS WITHOUT BLEEDING 04/06/2017 FLO WOOD SABRINA D Ot Z01.818 ENCOUNTER FOR OTHER PREPROCEDURAL EXAMIN 04/06/2017 FLO DO, SABRINA D Ot K29. 80 DUODENITIS WITHOUT BLEEDING 04/06/2017 FLO DOLALOTT D Ot Z01.818 ENCOUNTER FOR OTHER PREPROCEDURAL EXAMIN 04/08/2017 FLO DO SABRINA D Ot K29. 80 DUODENITIS WITHOUT BLEEDING 04/08/2017 SABRINA ROSSI DO Ot Z53. 9 PROCEDURE AND TREATMENT NOT CARRIED OUT, 04/23/2017 FLO DO SABRINA D Ot K29. 80 DUODENITIS WITHOUT BLEEDING 04/23/2017 SABRINA ROSSI DO D Ot Z53. 9 PROCEDURE AND TREATMENT NOT CARRIED OUT, 04/23/2017 FLO WOOD SABRINA D Ot K29. 80 DUODENITIS WITHOUT BLEEDING 04/23/2017 SABRINA ROSSI DO D Ot Z53. 9 PROCEDURE AND TREATMENT NOT CARRIED OUT, 06/10/2017 JAMES TORRES MD Ot E03.9 HYPOTHYROIDISM, UNSPECIFIED 06/10/2017 GAULT MD, JAMES R Ot E11.9 TYPE 2 DIABETES MELLITUS WITHOUT [...] II OR UNSPEC TY 06/16/2017 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 Ot 574.20 CHOLELITHIASIS NOS 06/16/2017 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 Ot 789.1 HEPATOMEGALY 06/16/2017 LINDA KHOURY [...] IRON DEFIC ANEMIA NOS 06/16/2017 Ot 585.3 BPM ARCHITECT LEANDRO KIDNEY DISEASE, STAGE III (MODER 06/16/2017 [...] DIABETES MELLITUS WITH HYPERGLYCE 06/16/2017 OVI KHOURY, WU Ot E78.5 HYPERLIPIDEMIA, UNSPECIFIED 06/16/2017 OVI KHOURY, TORI-FRANKIE Ot I10 ESSENTIAL (PRIMARY) HYPERTENSION 06/16/2017 OVI KHOURY, WU Ot E03.9 HYPOTHYROIDISM, UNSPECIFIED 06/16/2017 OVI KHOURY, TORI-FRANKIE Ot E11.9 TYPE 2 DIABETES MELLITUS WITHOUT COMPLIC 06/16/2017 OVI KHOURY, WU Ot E78.5 HYPERLIPIDEMIA, UNSPECIFIED 06/16/2017 OVI KHOURY, TORI-FRANKIE Ot I10 ESSENTIAL (PRIMARY) HYPERTENSION 06/16/2017 SHIREEN AGARWAL Ot D64.9 ANEMIA, UNSPECIFIED 06/16/2017 SHIREEN AGARWAL Ot E03.9 HYPOTHYROIDISM, UNSPECIFIED 06/16/2017 SHIREEN AGARWAL Ot 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 06/16/2017 SHIREEN AGARWAL Ot I12.9 HYPERTENSIVE CHRONIC KIDNEY DISEASE W ST 06/16/2017 SHIREEN AGARWAL Ot I25.10 ATHSCL HEART DISEASE OF [place] CORONARY 06/16/2017 SHIREEN AGARWAL Ot I48.91 UNSPECIFIED ATRIAL FIBRILLATION 06/16/2017 SHIREEN AGARWAL Ot N18.3 CHRONIC KIDNEY DISEASE, STAGE 3 (MODERAT 06/16/2017 SHIREEN AGARWAL Ot Z79.899 OTHER DETENTION (CURRENT) DRUG THERAPY 06/16/2017 BERNY ALCARAZ MD Ot I25.10 ATHSCL HEART DISEASE OF [place] CORONARY 06/16/2017 BERNY ALCARAZ MD Ot I25.10 ATHSCL HEART DISEASE OF [place] CORONARY 06/16/2017 Wei ALCARAZ MD Ot I47 .1 SUPRAVENTRICULAR TACHYCARDIA 06/16/2017 Wei ALCARAZ MD Ot I48.91 UNSPECIFIED ATRIAL FIBRILLATION 06/16/2017 SABRINA ROSSI DO Ot D50. 9 IRON DEFICIENCY ANEMIA, UNSPECIFIED 06/16/2017 SABRINA ROSSI DO Ot R19. 5 OTHER FECAL ABNORMALITIES 06/16/2017 ROSSI SABRINA WOOD Ot Z01.818 ENCOUNTER FOR OTHER PREPROCEDURAL EXAMIN 06/16/2017 SABRINA ROSSI DO Ot Z80. 0 FAMILY HISTORY OF MALIGNANT NEOPLASM OF 06/16/2017 SABRINA ROSSI DO Ot D64. 9 ANEMIA, UNSPECIFIED 06/16/2017 SABRINA ROSSI DO Ot E03. 9 HYPOTHYROIDISM, UNSPECIFIED 06/16/2017 [...] I10 ESSENTIAL (PRIMARY) HYPERTENSION 06/16/2017 ROSSI SABRINA WOOD Ot D64. 9 ANEMIA, UNSPECIFIED 06/16/2017 ROSSI SABRINA WOOD Ot K76. 89 OTHER SPECIFIED DISEASES OF LIVER 06/16/2017 ROSSI SABRINA WOOD Ot K82. 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 06/22/2017 SHIREEN AGARWAL Ot I12.9 HYPERTENSIVE CHRONIC KIDNEY DISEASE W ST 06/22/2017 SHIREEN AGARWAL Ot I25.10 ATHSCL HEART DISEASE OF [place] CORONARY 06/22/2017 SHIREEN AGARWAL Ot I48.91 UNSPECIFIED ATRIAL FIBRILLATION 06/22/2017 SHIREEN AGARWAL Ot N18.3 CHRONIC KIDNEY DISEASE, STAGE 3 (MODERAT 06/22/2017 SHIREEN AGARWAL Ot Z79.899 OTHER DETENTION (CURRENT) DRUG THERAPY 07/07/2017 ANY, BOBAN N Ot D50.9 IRON DEFICIENCY ANEMIA, UNSPECIFIED 07/07/2017 SHIREEN AGARWAL N Ot E03.9 HYPOTHYROIDISM, UNSPECIFIED 07/07/2017 SHIREEN AGARWAL N Ot 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 07/07/2017 SHIREEN AGARWAL N Ot I12.9 HYPERTENSIVE CHRONIC KIDNEY DISEASE W ST 07/07/2017 SHIREEN AGARWAL N Ot I25.10 ATHSCL HEART DISEASE OF [place] CORONARY 07/07/2017 SHIREEN AGARWAL N Ot I48.91 UNSPECIFIED ATRIAL FIBRILLATION 07/07/2017 SHIREEN AGARWAL N Ot N18.3 CHRONIC KIDNEY DISEASE, STAGE 3 (MODERAT 07/07/2017 SHIREEN AGARWAL N Ot 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 07/07/2017 MELIZA KHOURY, BRANDEN Ot D50.9 IRON DEFICIENCY ANEMIA, UNSPECIFIED 07/07/2017 MELIZA KHOURY, BRANDEN Ot E03.9 HYPOTHYROIDISM, UNSPECIFIED 07/07/2017 MELIZA KHOURY, BRANDEN Ot 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 07/07/2017 MELIZA KHOURY, BRANDEN Ot I12.9 HYPERTENSIVE CHRONIC KIDNEY DISEASE W ST 07/07/2017 MELIZA KHOURY, OTERO Ot I25.10 ATHSCL HEART DISEASE OF [place] CORONARY 07/07/2017 MELIZA KHOURY, BRANDEN Ot I48.91 UNSPECIFIED ATRIAL FIBRILLATION 07/07/2017 MELIZA KHOURY, BRANDEN Ot N18.3 CHRONIC KIDNEY DISEASE, STAGE 3 (MODERAT 07/07/2017 MELIZA KHOURY, BRANDEN Ot Z79.899 OTHER DETENTION (CURRENT) DRUG THERAPY 07/10/2017 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 Ot D64.89 OTHER SPECIFIED ANEMIAS 07/10/2017 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 Ot R06.02 SHORTNESS OF BREATH 07/17/2017 GISSELL DO CARMINE B Ot D12.0 BENIGN NEOPLASM OF CECUM 07/17/2017 GISSELL WOOD CARMINE B Ot D12.2 BENIGN NEOPLASM OF ASCENDING COLON 07/17/2017 GISSELL WOOD CARMINE B Ot D64.9 ANEMIA, UNSPECIFIED 07/17/2017 GISSELL DO CARMINE B Ot E11.4 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 07/17/2017 GISSELL WOOD CARMINE B Ot E66.0 1 MORBID (SEVERE) OBESITY DUE TO EXCESS CA 07/17/2017 GISSELL WOOD, CARMINE B Ot I10 ESSENTIAL (PRIMARY) HYPERTENSION 07/17/2017 DIVYA BORRERO DOIC B Ot I48.9 1 UNSPECIFIED ATRIAL FIBRILLATION 07/17/2017 GISSELL WOOD CARMINE B Ot K29.5 0 UNSPECIFIED CHRONIC GASTRITIS WITHOUT BL 07/17/2017 GISSELL WOOD CARMINE B Ot K29.7 0 GASTRITIS, UNSPECIFIED, WITHOUT BLEEDING 07/17/2017 DIVYA BORRERO [...] AL 07/17/2017 DIVYA BORRERO DOIC B Ot Z68.4 2 BODY MASS INDEX (BMI) 45.0-49.9, ADULT 07/17/2017 GISSELL WOOD CARMINE B Ot Z79.8 99 OTHER DRAY DRIVER (CURRENT) DRUG THERAPY 07/24/2017 DIVYA BORRERO DOIC B Ot D12.0 BENIGN NEOPLASM OF CECUM 07/24/2017 GISSELL WOOD CARMINE B Ot D12.2 BENIGN NEOPLASM OF ASCENDING COLON 07/24/2017 DIVYA BORRERO DOIC B Ot D64.9 ANEMIA, UNSPECIFIED 07/24/2017 DIVYA BORRERO DOIC B Ot E11.4 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 07/24/2017 GISSELL WOOD CARMINE B Ot E66.0 1 MORBID (SEVERE) OBESITY DUE TO EXCESS CA 07/24/2017 GISSELL WOOD, CARMINE B Ot I10 ESSENTIAL (PRIMARY) HYPERTENSION 07/24/2017 DIVYA BORRERO DOIC B Ot I48.9 1 UNSPECIFIED ATRIAL FIBRILLATION 07/24/2017 GISSELL WOOD CARMINE B Ot K29.5 0 UNSPECIFIED CHRONIC GASTRITIS WITHOUT BL 07/24/2017 GISSELL WOOD CARMINE B Ot K31.7 POLYP OF STOMACH AND DUODENUM 07/24/2017 DIVYA BORRERO DOIC B Ot K57.3 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 07/24/2017 GISSELL DO, CARMINE B Ot K64.8 OTHER HEMORRHOIDS 07/24/2017 GISSELL DO, CARMINE B Ot 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 07/24/2017 GISSELL DO, CARMINE B Ot Z68.4 2 BODY MASS INDEX (BMI) 45.0-49.9, ADULT 07/24/2017 GISSELL DO, CARMINE B Ot Z79.8 99 OTHER DRAY DRIVER (CURRENT) DRUG THERAPY 07/24/2017 GISSELL DO, CARMINE B Ot D12.0 BENIGN NEOPLASM OF CECUM 07/24/2017 DELMAN DO, CARMINE B Ot D12.2 BENIGN NEOPLASM OF ASCENDING COLON 07/24/2017 DELARIANA DO, CARMINE B Ot D64.9 ANEMIA, UNSPECIFIED 07/24/2017 DELARIANA DO, CARMINE B Ot E11.4 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 07/24/2017 DELARIANA DO, CARMINE B Ot E66.0 1 MORBID (SEVERE) OBESITY DUE TO EXCESS CA 07/24/2017 LUIZMAN DO, CARMINE B Ot I10 ESSENTIAL (PRIMARY) HYPERTENSION 07/24/2017 GISSELL DO, CARMINE B Ot I48.9 1 UNSPECIFIED ATRIAL FIBRILLATION 07/24/2017 GISSELL DO, CARMINE B Ot K29.5 0 UNSPECIFIED CHRONIC GASTRITIS WITHOUT BL 07/24/2017 GISSELL DO, CARMINE B Ot K31.7 POLYP OF STOMACH AND DUODENUM 07/24/2017 GISSELL WOOD, CARMINE B Ot K57.3 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 07/24/2017 GISSLEL DO, CARMINE B Ot K64.8 OTHER HEMORRHOIDS 07/24/2017 GISSELL DO, CARMINE B Ot 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 07/24/2017 GISSELL DO, CRAMINE B Ot Z68.4 2 BODY MASS INDEX (BMI) 45.0-49.9, ADULT 07/24/2017 LUIZARIANA DO, CARMINE B Ot Z79.8 99 OTHER DRAY DRIVER (CURRENT) DRUG THERAPY 07/28/2017 MELIZA KHOURY, BRANDEN Ot D50.9 IRON DEFICIENCY ANEMIA, UNSPECIFIED 07/28/2017 BRANDEN HAIDER MD Ot E03.9 HYPOTHYROIDISM, UNSPECIFIED 07/28/2017 MELIZA MD, OTERO Ot 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 07/28/2017 MELIZA KHOURY, BRANDEN Ot I12.9 HYPERTENSIVE CHRONIC KIDNEY DISEASE W ST 07/28/2017 MELIZA KHOURY, BRANDEN Ot I25.10 ATHSCL HEART DISEASE OF [place] CORONARY 07/28/2017 MELIZA KHOURY, BRANDEN Ot I48.91 UNSPECIFIED ATRIAL FIBRILLATION 07/28/2017 MELIZA KHOURY, BRANDEN Ot N18.3 CHRONIC KIDNEY DISEASE, STAGE 3 (MODERAT 07/28/2017 MELIZA KHOURY, BRANDEN Ot Z79.899 OTHER DETENTION (CURRENT) DRUG THERAPY 07/29/2017 ANY, BOBAN N Ot D50.9 IRON DEFICIENCY ANEMIA, UNSPECIFIED 07/29/2017 ANY, BOBAN N Ot E03.9 HYPOTHYROIDISM, UNSPECIFIED 07/29/2017 ANY, BOBAN N Ot 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 07/29/2017 ANY, BOBAN N Ot I12.9 HYPERTENSIVE CHRONIC KIDNEY DISEASE W ST 07/29/2017 ANY, BOBAN N Ot I25.10 ATHSCL HEART DISEASE OF [place] CORONARY 07/29/2017 ANY, BOBAN N Ot I48.91 UNSPECIFIED ATRIAL FIBRILLATION 07/29/2017 ANY, BOBAN N Ot N18.3 CHRONIC KIDNEY DISEASE, STAGE 3 (MODERAT 07/29/2017 ANY, BOBAN N Ot Z79.899 OTHER DETENTION (CURRENT) DRUG THERAPY 08/11/2017 DELMAN DO, CARMINE B Ot D12.0 BENIGN NEOPLASM OF CECUM 08/11/2017 DELARIANA DO, CARMINE B Ot D12.2 BENIGN NEOPLASM OF ASCENDING COLON 08/11/2017 GISSELL DO, CARMINE B Ot D64.9 ANEMIA, UNSPECIFIED 08/11/2017 DELMAN DO, CARMINE B Ot E11.4 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 08/11/2017 DELMAN DO, CARMINE B Ot E66.0 1 MORBID (SEVERE) OBESITY DUE TO EXCESS CA 08/11/2017 DELMAN DO, CARMINE B Ot I10 ESSENTIAL (PRIMARY) HYPERTENSION 08/11/2017 GISSELL DO, CARMINE B Ot I48.9 1 UNSPECIFIED ATRIAL FIBRILLATION 08/11/2017 GISSELL DO, CARMINE B Ot K29.5 0 UNSPECIFIED CHRONIC GASTRITIS WITHOUT BL 08/11/2017 GISSELL DO, CARMINE B Ot K31.7 POLYP OF STOMACH AND DUODENUM 08/11/2017 GISSELL WOOD CARMINE B Ot K57.3 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 08/11/2017 GISSELL WOOD CARMINE B Ot K64.8 OTHER HEMORRHOIDS 08/11/2017 GISSELL WOOD CARMINE B Ot 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 08/11/2017 GISSELL WOOD CARMINE B Ot Z68.4 2 BODY MASS INDEX (BMI) 45.0-49.9, ADULT 08/11/2017 GISSELL WOOD CARMINE B Ot Z79.8 99 OTHER DRAY DRIVER (CURRENT) DRUG THERAPY 09/02/2017 SHIREEN AGARWAL N Ot D50.9 IRON DEFICIENCY ANEMIA, UNSPECIFIED 09/02/2017 SHIREEN AGARWAL N Ot E03.9 HYPOTHYROIDISM, UNSPECIFIED 09/02/2017 SHIREEN AGARWAL N Ot 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 09/02/2017 SHIREEN AGARWAL N Ot I12.9 HYPERTENSIVE CHRONIC KIDNEY DISEASE W ST 09/02/2017 SHIREEN AGARWAL N Ot I25.10 ATHSCL HEART DISEASE OF [place] CORONARY 09/02/2017 SHIREEN AGARWAL N Ot I48.91 UNSPECIFIED ATRIAL FIBRILLATION 09/02/2017 SHIREEN AGARWAL N Ot N18.3 CHRONIC KIDNEY DISEASE, STAGE 3 (MODERAT 09/02/2017 ANY JJAN N Ot Z79.899 OTHER DETENTION (CURRENT) DRUG THERAPY 09/02/2017 Ot 250.00 AWA B NALLELY WO COMPL, TYPE II OR UNSPEC TY 09/02/2017 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 Ot 574.20 CHOLELITHIASIS NOS 09/02/2017 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 Ot 789.1 HEPATOMEGALY 09/02/2017 LINDA KHOURY [...] IRON DEFIC ANEMIA NOS 09/02/2017 Ot 585.3 BPM ARCHITECT LEANDRO KIDNEY DISEASE, STAGE III (MODER 09/02/2017 Ot V58.69 OTH MED,LT,CURRENT USE 09/02/2017 Ot 250.02 AWA B NALLELY WO COMPL, TYPE II OR UNSPEC TY 09/02/2017 HARVEY KHOURY, CLAUDE S Ot 574.20 CHOLELITHIASIS NOS 09/02/2017 HARVEY KHOURY, CLAUDE S Ot 585.2 CHRONIC [...] 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 09/02/2017 SHIREEN AGARWAL Ot I12.9 HYPERTENSIVE CHRONIC KIDNEY DISEASE W ST 09/02/2017 SHIREEN AGARWAL Ot I25.10 ATHSCL HEART DISEASE OF [place] CORONARY 09/02/2017 ANY, JJONDINA Solange Ot I48.91 UNSPECIFIED ATRIAL FIBRILLATION 09/02/2017 SHIREEN AGARWAL Solange Ot N18.3 CHRONIC KIDNEY DISEASE, STAGE 3 (MODERAT 09/02/2017 SHIREEN AGARWAL Solange Ot Z79.899 OTHER DETENTION (CURRENT) DRUG THERAPY 09/02/2017 KIERAN KHOURY, BERNY Champion Ot I25.10 ATHSCL HEART DISEASE OF [place] CORONARY 09/02/2017 BERNY ALCARAZ MD Ot I25.10 ATHSCL HEART DISEASE OF [place] CORONARY 09/02/2017 KIERAN KHOURY, Wei BRANDON Ot I47 .1 SUPRAVENTRICULAR TACHYCARDIA 09/02/2017 Wei ALCARAZ MD Ot I48.91 UNSPECIFIED ATRIAL FIBRILLATION 09/02/2017 SABRINA [...] 1 HYDROPS OF GALLBLADDER 09/02/2017 RACHELE JEFFERSON S CUSTODIAL MAINTENANCE WORKER Ot D64.89 OTHER SPECIFIED ANEMIAS 09/02/2017 JEFFRESONRACHELE Clement CUSTODIAL MAINTENANCE WORKER Ot R06.02 SHORTNESS OF BREATH 09/02/2017 ANYJJ BALDWINAN N Ot D50.9 IRON DEFICIENCY ANEMIA, UNSPECIFIED 09/02/2017 ANYJJ BALDWINAN N Ot E03.9 HYPOTHYROIDISM, UNSPECIFIED 09/02/2017 ANY, BOBAN N Ot 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 09/02/2017 ANY, BOBAN N Ot I12.9 HYPERTENSIVE CHRONIC KIDNEY DISEASE W ST 09/02/2017 ANY, BOBAN N Ot I25.10 ATHSCL HEART DISEASE OF [place] CORONARY 09/02/2017 ANY, BOBAN N Ot I48.91 UNSPECIFIED ATRIAL FIBRILLATION 09/02/2017 ANY, BOBAN N Ot N18.3 CHRONIC KIDNEY DISEASE, STAGE 3 (MODERAT 09/02/2017 ANY, BOBAN N Ot Z79.899 OTHER DETENTION (CURRENT) DRUG THERAPY 09/13/2017 JAMES TORRES MD Ot D50.9 IRON DEFICIENCY ANEMIA, UNSPECIFIED 09/13/2017 JAMES TORRES MD Ot E03.9 HYPOTHYROIDISM, UNSPECIFIED 09/13/2017 JAMES TORRES MD Ot E11.9 TYPE 2 DIABETES MELLITUS WITHOUT COMPLIC 09/13/2017 JAMES TORRES MD Ot E78.5 HYPERLIPIDEMIA, UNSPECIFIED 09/13/2017 JAMES TORRES MD Ot I10 ESSENTIAL (PRIMARY) HYPERTENSION 09/13/2017 JAMES TORRES MD Ot I25.1 0 ATHSCL HEART DISEASE OF [place] CORONARY 09/13/2017 JAMES TORRES MD Ot I48.9 1 UNSPECIFIED ATRIAL FIBRILLATION 09/13/2017 JAMES TORRES MD Ot L40.9 PSORIASIS, UNSPECIFIED 09/13/2017 JAMES TORRES MD Ot R07.8 9 OTHER CHEST PAIN 09/13/2017 JAMES TORRES MD Ot R51 HEADACHE 09/13/2017 JAMES TORRES MD Ot R60.0 LOCALIZED EDEMA 09/13/2017 JAMES TORRES MD Ot Z79.8 99 OTHER DRAY DRIVER (CURRENT) DRUG THERAPY 09/13/2017 JAMES TORRES MD [...] Ot I25.1 0 ATHSCL HEART DISEASE OF [place] CORONARY 09/13/2017 JAMES TORRES MD Ot I48.9 1 UNSPECIFIED ATRIAL FIBRILLATION 09/13/2017 JAMES TORRES MD Ot L40.9 PSORIASIS, UNSPECIFIED 09/13/2017 JAMES TORRES MD Ot R07.8 9 OTHER CHEST PAIN 09/13/2017 JAMES TORRES MD Ot R51 HEADACHE 09/13/2017 JAMES TORRES MD Ot R60.0 LOCALIZED EDEMA 09/13/2017 JAMES TORRES MD Ot Z79.8 99 OTHER DRAY DRIVER (CURRENT) DRUG THERAPY 09/13/2017 JAMES TORRES MD [...] HEART DISEASE WITHOUT HEART 10/05/2017 TOMASA CARMONA MD Ot I21 .4 NON-ST ELEVATION (NSTEMI) MYOCARDIAL [...] ADULT 10/05/2017 TOMASA CARMONA MD Ot Z79.84 DRAY DRIVER (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 OF ORAL HYPOGLYC 10/05/2017 TOMASA CARMONA MD, Ot Z79.899 OTHER DETENTION (CURRENT) DRUG THERAPY 10/05/2017 TOMASA CARMONA MD, [...] .9 HEART FAILURE, UNSPECIFIED 10/05/2017 TOMASA CARMONA MD Ot K74.60 UNSPECIFIED CIRRHOSIS OF LIVER 10/05/2017 TOMASA CARMONA MD, Ot K92 .2 GASTROINTESTINAL HEMORRHAGE, UNSPECIFIED 10/05/2017 TOMASA CARMONA MD, Ot N17 .9 ACUTE KIDNEY FAILURE, UNSPECIFIED 10/05/2017 TOMASA CARMONA MD, Ot N30.00 ACUTE CYSTITIS WITHOUT HEMATURIA 10/05/2017 TOMASA CARMONA MD, Ot Z68.42 BODY MASS INDEX (BMI) 45.0-49.9, ADULT 10/05/2017 TOMASA CARMONA MD Ot Z79.84 DRAY DRIVER (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 OF ORAL HYPOGLYC 10/05/2017 TOMASA CARMONA MD, Ot 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 10/05/2017 TOMASA CARMONA MD, Ot Z87.8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 10/05/2017 TOMASA CARMONA MD, Ot Z88 .1 ALLERGY STATUS TO OTHER ANTIBIOTIC AGENT 10/05/2017 TOMASA CARMONA MD, Ot Z95 .5 PRESENCE OF CORONARY ANGIOPLASTY IMPLANT 10/05/2017 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 Ot 574.20 CHOLELITHIASIS NOS 10/05/2017 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 Ot 789.1 HEPATOMEGALY 10/05/2017 LINDA KHOURY FACFernanda, ARNIE FACP CCDS Ot 401.9 HYPERTENSION NOS 10/05/2017 [...] IRON DEFIC ANEMIA NOS 10/05/2017 Ot 585.3 BPM ARCHITECT LEANDRO KIDNEY DISEASE, STAGE III (MODER 10/05/2017 Ot V58.69 OTH MED,LT,CURRENT USE 10/05/2017 Ot 250.02 AWA B NALLELY YODER COMPL, TYPE II OR UNSPEC TY 10/05/2017 HARVEY KHOURY, CLAUDE S Ot 574.20 CHOLELITHIASIS NOS 10/05/2017 HARVEY KHOURY, CLAUDE S Ot 585.2 CHRONIC KIDNEY DISEASE, STAGE II (MILD) 10/05/2017 OVI KHOURY, TORI-FRANKIE Ot E03.9 HYPOTHYROIDISM, UNSPECIFIED 10/05/2017 OVI KHOURY, TORI-FRANKIE Ot E11.6 5 TYPE 2 DIABETES MELLITUS WITH HYPERGLYCE 10/05/2017 OVI KHOURY, TORI-FRANKIE Ot E78.5 HYPERLIPIDEMIA, UNSPECIFIED 10/05/2017 OVI KHOURY, TORI-FRANKIE Ot I10 ESSENTIAL (PRIMARY) HYPERTENSION 10/05/2017 OVI KHOURY, TORI-FRANKIE Ot E03.9 HYPOTHYROIDISM, UNSPECIFIED 10/05/2017 OVI KHOURY, TORI-FRANKIE Ot E11.9 TYPE 2 DIABETES MELLITUS WITHOUT COMPLIC 10/05/2017 OVI KHOURY, TORI-FRANKIE Ot E78.5 HYPERLIPIDEMIA, UNSPECIFIED 10/05/2017 OVI KHOURY, TORI-FRANKIE Ot I10 ESSENTIAL (PRIMARY) HYPERTENSION 10/05/2017 SHIREEN AGARWAL Ot D64.9 ANEMIA, UNSPECIFIED 10/05/2017 SHIREEN AGARWAL Ot E03.9 HYPOTHYROIDISM, UNSPECIFIED 10/05/2017 SHIREEN AGARWAL Ot 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 10/05/2017 SHIREEN AGARWAL Ot I12.9 HYPERTENSIVE CHRONIC KIDNEY DISEASE W ST 10/05/2017 SHIREEN AGARWAL Solange Ot I25.10 ATHSCL HEART DISEASE OF [place] CORONARY 10/05/2017 SHIREEN AGARWAL Solange Ot I48.91 UNSPECIFIED ATRIAL FIBRILLATION 10/05/2017 SHIREEN AGARWAL Solange Ot N18.3 CHRONIC KIDNEY DISEASE, STAGE 3 (MODERAT 10/05/2017 SHIREEN AGARWAL Solange Ot 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 10/05/2017 BERNY ALCARAZ MD Ot I25.10 ATHSCL HEART DISEASE OF [place] CORONARY 10/05/2017 BERNY ALCARAZ MD Ot I25.10 ATHSCL HEART DISEASE OF [place] CORONARY 10/05/2017 KIERAN KHOURY, Wei BRANDON Ot I47 .1 SUPRAVENTRICULAR TACHYCARDIA 10/05/2017 Wei ALCARAZ MD Ot I48.91 UNSPECIFIED ATRIAL FIBRILLATION 10/05/2017 SABRINA [...] ESSENTIAL (PRIMARY) HYPERTENSION 10/05/2017 SABRINA ROSSI DO Ot D64. 9 ANEMIA, UNSPECIFIED 10/05/2017 SABRINA ROSSI DO Ot K76. 89 OTHER SPECIFIED DISEASES OF LIVER 10/05/2017 SABRINA ROSSI DO Ot K82. 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 10/05/2017 ANY, BOBAN N Ot I12.9 HYPERTENSIVE CHRONIC KIDNEY DISEASE W ST 10/05/2017 ANY, BOBAN N Ot I25.10 ATHSCL HEART DISEASE OF [place] CORONARY 10/05/2017 ANY, BOBAN N Ot I48.91 UNSPECIFIED ATRIAL FIBRILLATION 10/05/2017 ANY, BOBAN N Ot N18.3 CHRONIC KIDNEY DISEASE, STAGE 3 (MODERAT 10/05/2017 ANY, BOBAN N Ot 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 10/26/2017 ANY, BOBAN N Ot D50.9 IRON DEFICIENCY ANEMIA, UNSPECIFIED 10/26/2017 ANY, BOBAN N Ot E03.9 HYPOTHYROIDISM, UNSPECIFIED 10/26/2017 ANY, BOBAN N Ot 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 10/26/2017 ANY, BOBAN N Ot I12.9 HYPERTENSIVE CHRONIC KIDNEY DISEASE W ST 10/26/2017 ANY, BOBAN N Ot I25.10 ATHSCL HEART DISEASE OF [place] CORONARY 10/26/2017 ANY, BOBAN N Ot I48.91 UNSPECIFIED ATRIAL FIBRILLATION 10/26/2017 ANY, BOBAN N Ot N18.3 CHRONIC KIDNEY DISEASE, STAGE 3 (MODERAT 10/26/2017 ANY, BOBAN N Ot 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 10/27/2017 ANY, BOBAN N Ot D50.9 IRON DEFICIENCY ANEMIA, UNSPECIFIED 10/27/2017 ANY, BOBAN N Ot E03.9 HYPOTHYROIDISM, UNSPECIFIED 10/27/2017 ANY, BOBAN N Ot 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 10/27/2017 ANY, BOBAN N Ot I12.9 HYPERTENSIVE CHRONIC KIDNEY DISEASE W ST 10/27/2017 ANY, BOBAN N Ot I25.10 ATHSCL HEART DISEASE OF [place] CORONARY 10/27/2017 ANY, BOBAN N Ot I48.91 UNSPECIFIED ATRIAL FIBRILLATION 10/27/2017 ANY, BOBAN N Ot N18.3 CHRONIC KIDNEY DISEASE, STAGE 3 (MODERAT 10/27/2017 ANY, BOBAN N Ot 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 10/28/2017 ANY, BOBAN N Ot D50.9 IRON DEFICIENCY ANEMIA, UNSPECIFIED 10/28/2017 ANY, BOBAN N Ot E03.9 HYPOTHYROIDISM, UNSPECIFIED 10/28/2017 ANY, BOBAN N Ot 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 10/28/2017 ANY, BOBAN N Ot I12.9 HYPERTENSIVE CHRONIC KIDNEY DISEASE W ST 10/28/2017 ANY, BOBAN N Ot I25.10 ATHSCL HEART DISEASE OF [place] CORONARY 10/28/2017 ANY, BOBAN N Ot I48.91 UNSPECIFIED ATRIAL FIBRILLATION 10/28/2017 ANY, BOBAN N Ot N18.3 CHRONIC KIDNEY DISEASE, STAGE 3 (MODERAT 10/28/2017 ANY, BOBAN N Ot 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 10/28/2017 ANY, BOBAN N Ot D50.9 IRON DEFICIENCY ANEMIA, UNSPECIFIED 10/28/2017 ANY, BOBAN N Ot E03.9 HYPOTHYROIDISM, UNSPECIFIED 10/28/2017 ANY, BOBAN N Ot 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 10/28/2017 ANY, BOBAN N Ot I12.9 HYPERTENSIVE CHRONIC KIDNEY DISEASE W ST 10/28/2017 ANY, BOBAN N Ot I25.10 ATHSCL HEART DISEASE OF [place] CORONARY 10/28/2017 ANY, BOBAN N Ot I48.91 UNSPECIFIED ATRIAL FIBRILLATION 10/28/2017 ANY, BOBAN N Ot N18.3 CHRONIC KIDNEY DISEASE, STAGE 3 (MODERAT 10/28/2017 ANY, BOBAN N Ot Z79.899 OTHER DETENTION (CURRENT) DRUG THERAPY 10/28/2017 ANY, BOBAN N Ot D50.9 IRON DEFICIENCY ANEMIA, UNSPECIFIED 10/28/2017 ANY, BOBAN N Ot E03.9 HYPOTHYROIDISM, UNSPECIFIED 10/28/2017 JJ AGARWALAN N Ot 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 10/28/2017 SHIREEN AGARWAL N Ot I12.9 HYPERTENSIVE CHRONIC KIDNEY DISEASE W ST 10/28/2017 SHIREEN AGARWAL N Ot I25.10 ATHSCL HEART DISEASE OF [place] CORONARY 10/28/2017 ANY, BOBAN N Ot I48.91 UNSPECIFIED ATRIAL FIBRILLATION 10/28/2017 SHIREEN AGARWAL N Ot N18.3 CHRONIC KIDNEY DISEASE, STAGE 3 (MODERAT 10/28/2017 JJ AGARWALAN N Ot Z79.899 OTHER DETENTION (CURRENT) DRUG THERAPY 11/06/2017 KIERAN KHOURY, Wei BRANDON Ot I47 .1 SUPRAVENTRICULAR TACHYCARDIA 11/06/2017 KIERAN KHOURY, Wei BRANDON Ot I48.91 UNSPECIFIED ATRIAL FIBRILLATION 11/06/2017 SHIREEN AGARWAL N Ot D50.9 IRON DEFICIENCY ANEMIA, UNSPECIFIED 11/06/2017 SHIREEN AGARWAL N Ot E03.9 HYPOTHYROIDISM, UNSPECIFIED 11/06/2017 SHIREEN AGARWAL N Ot 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 11/06/2017 SHIREEN AGARWAL N Ot I12.9 HYPERTENSIVE CHRONIC KIDNEY DISEASE W ST 11/06/2017 SHIREEN AGARWAL N Ot I25.10 ATHSCL HEART DISEASE OF [place] CORONARY 11/06/2017 SHIREEN AGARWAL N Ot I48.91 UNSPECIFIED ATRIAL FIBRILLATION 11/06/2017 SHIREEN AGARWAL N Ot N18.3 CHRONIC KIDNEY DISEASE, STAGE 3 (MODERAT 11/06/2017 JJ AGARWALAN N Ot 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 11/07/2017 TOMASA CARMONA MD Ot D50 .9 IRON DEFICIENCY ANEMIA, UNSPECIFIED 11/07/2017 TOMASA CARMONA MD Ot E11 .9 TYPE 2 DIABETES MELLITUS WITHOUT COMPLIC 11/07/2017 TOMASA CARMONA MD Ot I11 .0 HYPERTENSIVE HEART DISEASE WITH HEART FA 11/07/2017 TOMASA CARMONA MD Ot I25.10 ATHSCL HEART DISEASE OF [place] CORONARY 11/07/2017 TOMASA CARMONA MD Ot I25 .2 OLD MYOCARDIAL INFARCTION 11/07/2017 TOMASA CARMONA MD Ot I48.91 UNSPECIFIED ATRIAL FIBRILLATION 11/07/2017 TOMASA CARMONA MD Ot I50 .9 HEART FAILURE, UNSPECIFIED 11/07/2017 TOMASA CARMONA MD Ot K21 .9 GASTRO-ESOPHAGEAL REFLUX DISEASE WITHOUT 11/07/2017 TOMASA CARMONA MD Ot N19 UNSPECIFIED KIDNEY FAILURE 11/07/2017 TOMASA CARMONA MD Ot Z79.84 DETENTION (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 OF ORAL HYPOGLYC 11/07/2017 TOMASA CARMONA MD Ot 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 11/07/2017 TOMASA CARMONA MD Ot Z87.8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 11/10/2017 TOMASA CARMONA MD Ot D50 .9 IRON DEFICIENCY ANEMIA, UNSPECIFIED 11/10/2017 TOMASA CARMONA MD Ot E11 .9 TYPE 2 DIABETES MELLITUS WITHOUT COMPLIC 11/10/2017 TOMASA CARMONA MD Ot I11 .0 HYPERTENSIVE HEART DISEASE WITH HEART FA 11/10/2017 TOMASA CARMONA MD Ot I25.10 ATHSCL HEART DISEASE OF [place] CORONARY 11/10/2017 TOMASA CARMONA MD Ot I25 .2 OLD MYOCARDIAL INFARCTION 11/10/2017 TOMASA CARMONA MD Ot I48.91 UNSPECIFIED ATRIAL FIBRILLATION 11/10/2017 TOMASA CARMONA MD Ot I50 .9 HEART FAILURE, UNSPECIFIED 11/10/2017 TOMASA CARMONA MD Ot K21 .9 GASTRO-ESOPHAGEAL REFLUX DISEASE WITHOUT 11/10/2017 TOMASA CARMONA MD Ot N19 UNSPECIFIED KIDNEY FAILURE 11/10/2017 TOMASA CARMONA MD Ot Z79.84 DRAY DRIVER (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 OF ORAL HYPOGLYC 11/10/2017 TOMASA CARMONA MD Ot 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 11/10/2017 TOMASA CARMONA MD Ot Z87.8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 11/12/2017 TOMASA CARMONA MD Ot D50 .9 IRON DEFICIENCY ANEMIA, UNSPECIFIED 11/12/2017 TOMASA CARMONA MD Ot E11 .9 TYPE 2 DIABETES MELLITUS WITHOUT COMPLIC 11/12/2017 TOMASA CARMONA MD Ot I11 .0 HYPERTENSIVE HEART DISEASE WITH HEART FA 11/12/2017 TOMASA CARMONA MD, Ot I25.10 ATHSCL HEART DISEASE OF [place] CORONARY 11/12/2017 TOMASA CARMONA MD Ot I25 .2 OLD MYOCARDIAL INFARCTION 11/12/2017 TOMASA CARMONA MD Ot I48.91 UNSPECIFIED ATRIAL FIBRILLATION 11/12/2017 TOMASA CARMONA MD, Ot I50 .9 HEART FAILURE, UNSPECIFIED 11/12/2017 TOMASA CARMONA MD Ot K21 .9 GASTRO-ESOPHAGEAL REFLUX DISEASE WITHOUT 11/12/2017 TOMASA CARMONA MD, Ot N19 UNSPECIFIED KIDNEY FAILURE 11/12/2017 TOMASA CARMONA MD Ot Z79.84 DRAY DRIVER (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 OF ORAL HYPOGLYC 11/12/2017 TOMASA CARMONA MD Ot Z79.899 OTHER DETENTION (CURRENT) DRUG THERAPY 11/12/2017 TOMASA CARMONA MD Ot Z87.8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 11/12/2017 KIERAN KHOURY, M ROMA Ot R06.02 SHORTNESS OF BREATH 11/18/2017 KELLY KHOURY TUBA Ot D50 .9 IRON DEFICIENCY ANEMIA, UNSPECIFIED 11/18/2017 KELLY KHOURY TUBA Ot R11 .2 NAUSEA WITH VOMITING, UNSPECIFIED 11/24/2017 SHIREEN AGARWAL Ot D50.9 IRON DEFICIENCY ANEMIA, UNSPECIFIED 11/24/2017 SHIREEN AGARWAL Ot E03.9 HYPOTHYROIDISM, UNSPECIFIED 11/24/2017 SHIREEN AGARWAL Ot 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 11/24/2017 SHIREEN AGARWAL Ot I12.9 HYPERTENSIVE CHRONIC KIDNEY DISEASE W ST 11/24/2017 SHIREEN AGARWAL Ot I25.10 ATHSCL HEART DISEASE OF [place] CORONARY 11/24/2017 SHIREEN AGARWAL Ot I48.91 UNSPECIFIED ATRIAL FIBRILLATION 11/24/2017 SHIREEN AGARWAL Ot N18.3 CHRONIC KIDNEY DISEASE, STAGE 3 (MODERAT 11/24/2017 SHIREEN AGARWAL Ot 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 11/30/2017 ESFANDYARI MD, TUBA Ot D50 .9 IRON DEFICIENCY ANEMIA, UNSPECIFIED 11/30/2017 KELLY KHOURY, TUBA Ot R11 .2 NAUSEA WITH VOMITING, UNSPECIFIED 11/30/2017 KIERAN KHOURY, M ROMA Ot R06.02 SHORTNESS OF BREATH 01/25/2018 ANY, BOBAN N Ot D50.9 IRON DEFICIENCY ANEMIA, UNSPECIFIED 01/25/2018 ANY, BOBAN N Ot E03.9 HYPOTHYROIDISM, UNSPECIFIED 01/25/2018 ANY, BOBAN N Ot 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 01/25/2018 ANY, BOBAN N Ot I12.9 HYPERTENSIVE CHRONIC KIDNEY DISEASE W ST 01/25/2018 ANY, BOBAN N Ot I25.10 ATHSCL HEART DISEASE OF [place] CORONARY 01/25/2018 ANY, BOBAN N Ot I48.91 UNSPECIFIED ATRIAL FIBRILLATION 01/25/2018 ANY, BOBAN N Ot N18.3 CHRONIC KIDNEY DISEASE, STAGE 3 (MODERAT 01/25/2018 ANY, BOBAN N Ot Z79.899 OTHER DETENTION (CURRENT) DRUG THERAPY 02/04/2018 ANY, BOBAN N Ot D50.9 IRON DEFICIENCY ANEMIA, UNSPECIFIED 02/04/2018 ANY, BOBAN N Ot E03.9 HYPOTHYROIDISM, UNSPECIFIED 02/04/2018 ANY, BOBAN N Ot 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 02/04/2018 ANY, BOBAN N Ot I12.9 HYPERTENSIVE CHRONIC KIDNEY DISEASE W ST 02/04/2018 ANY, BOBAN N Ot I25.10 ATHSCL HEART DISEASE OF [place] CORONARY 02/04/2018 ANY, BOBAN N Ot I48.91 UNSPECIFIED ATRIAL FIBRILLATION 02/04/2018 ANY, BOBAN N Ot N18.3 CHRONIC KIDNEY DISEASE, STAGE 3 (MODERAT 02/04/2018 ANY, BOBAN N Ot Z79.899 OTHER DETENTION (CURRENT) DRUG THERAPY 02/12/2018 BRIAN KHOURY, JAMES Champion Ot D50.0 IRON DEFICIENCY ANEMIA SECONDARY TO BLOO 02/12/2018 BRIAN KHOURY, JAMES Champion Ot E03.9 HYPOTHYROIDISM, UNSPECIFIED 02/12/2018 BRIAN KHOURY, JAMES Champion Ot E11.6 5 TYPE 2 DIABETES MELLITUS [...] Ot I25.1 10 ATHSCL HEART DISEASE OF [place] COR ART W 02/12/2018 JAMES TORRES MD, [...] 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 03/02/2018 SHIREEN AGARWAL Ot I12.9 HYPERTENSIVE CHRONIC KIDNEY DISEASE W ST 03/02/2018 SHIREEN AGARWAL Ot I25.10 ATHSCL HEART DISEASE OF [place] CORONARY 03/02/2018 SHIREEN AGARWAL Ot I48.91 UNSPECIFIED ATRIAL FIBRILLATION 03/02/2018 SHIREEN AGARWAL Ot N18.3 CHRONIC KIDNEY DISEASE, STAGE 3 (MODERAT 03/02/2018 SHIREEN AGARWAL Ot Z79.899 OTHER DETENTION (CURRENT) DRUG THERAPY 03/02/2018 BRANDEN HAIDER MD Ot D50.9 IRON DEFICIENCY ANEMIA, UNSPECIFIED 03/02/2018 BRANDEN HAIDER MD Ot E03.9 HYPOTHYROIDISM, UNSPECIFIED 03/02/2018 BRANDEN HAIDER MD Ot 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 03/02/2018 BRANDEN HAIDER MD Ot I12.9 HYPERTENSIVE CHRONIC KIDNEY DISEASE W ST 03/02/2018 BRANDEN HAIDER MD Ot I25.10 ATHSCL HEART DISEASE OF [place] CORONARY 03/02/2018 BRANDEN HAIDER MD Ot I48.91 UNSPECIFIED ATRIAL FIBRILLATION 03/02/2018 BRANDEN HAIDER MD Ot N18.3 CHRONIC KIDNEY DISEASE, STAGE 3 (MODERAT 03/02/2018 BRANDEN HAIDER MD Ot Z79.899 OTHER DETENTION (CURRENT) DRUG THERAPY 03/03/2018 Ot 401.9 HYPE RTENSION NOS 03/03/2018 Ot 272.4 HYPE RLIPIDEMIA NEC/NOS 03/03/2018 Ot 250.00 AWA B NALLELY WO COMPL, TYPE II OR UNSPEC TY 03/03/2018 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 Ot 574.20 CHOLELITHIASIS NOS 03/03/2018 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 Ot 789.1 HEPATOMEGALY 03/03/2018 LINDA KHOURY FACC, ALI FACP CCDS Ot 401.9 HYPERTENSION NOS 03/03/2018 LINDA KHOURY FACC, ALI FACP CCDS Ot 414.00 CORON ATHEROSCLER NOS TYPE VESSEL, NATIV 03/03/2018 LINDA GONZALESC, ALI FACP CCDS Ot 427.31 ATRIAL FIBRILLATION 03/03/2018 TY KHOURY, TONIE Diaz Ot V72. 84 EXAM PRE-OPERATIVE NOS 03/03/2018 LINDA KHOURY FACC, ALI FACP CCDS Ot 250.00 DIAB NALLELY WO COMPL, TYPE II OR UNSPEC TY 03/03/2018 LINDA KHOURY FACC, ALI FACP CCDS Ot 401.9 HYPERTENSION NOS 03/03/2018 LINDA GONZALESC, ALI FACP CCDS Ot 427.0 PAROX ATRIAL TACHYCARDIA 03/03/2018 LINDA GONZALESC, ALI FACP CCDS Ot 785.1 PALPITATIONS 03/03/2018 Ot 244.9 HYPO THYROIDISM NOS 03/03/2018 Ot 280.9 IRON DEFIC ANEMIA NOS 03/03/2018 Ot 585.3 BPM ARCHITECT LEANDRO KIDNEY DISEASE, STAGE III (MODER 03/03/2018 [...] 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 03/03/2018 SHIREEN AGARWAL Ot I12.9 HYPERTENSIVE CHRONIC KIDNEY DISEASE W ST 03/03/2018 SHIREEN AGARWAL Ot I25.10 ATHSCL HEART DISEASE OF [place] CORONARY 03/03/2018 SHIREEN AGARWAL Ot I48.91 UNSPECIFIED ATRIAL FIBRILLATION 03/03/2018 SHIREEN AGARWAL Ot N18.3 CHRONIC KIDNEY DISEASE, STAGE 3 (MODERAT 03/03/2018 SHIREEN AGARWAL Ot Z79.899 OTHER DETENTION (CURRENT) DRUG THERAPY 03/03/2018 KIERAN KHOURY, BERNY Champion Ot I25.10 ATHSCL HEART DISEASE OF [place] CORONARY 03/03/2018 BERNY ALCARAZ MD Ot I25.10 ATHSCL HEART DISEASE OF [place] [place] CORON[place] 03/03/2018 KIERAN KHOURY, Wei BRANDON Ot I47 .1 SUPRAVENTRICULAR TACHYCARDIA 03/03/2018 KIERAN KHOURY, Wei BRANDON Ot I48.91 UNSPECIFIED ATRIAL FIBRILLATION 03/03/2018 FLO WOOD SABRINA D Ot D50. 9 IRON DEFICIENCY ANEMIA, UNSPECIFIED 03/03/2018 ROSSI DO SABRINA D Ot R19. 5 OTHER FECAL ABNORMALITIES 03/03/2018 FLO WOOD SABRINA D Ot Z01.818 ENCOUNTER FOR OTHER PREPROCEDURAL EXAMIN 03/03/2018 SABRINA ROSSI DO D Ot Z80. 0 FAMILY HISTORY OF [...] MELLITUS WITHOUT COMPLIC 03/03/2018 BRIAN KHOURY, JAMES Champion Ot I10 ESSENTIAL (PRIMARY) HYPERTENSION 03/03/2018 FLO WOOD SABRINA D Ot D64. 9 ANEMIA, UNSPECIFIED 03/03/2018 ROSSI DO SABRINA D Ot K76. 89 OTHER SPECIFIED DISEASES OF LIVER 03/03/2018 FLO WOOD SABRINA D Ot K82. 1 HYDROPS OF GALLBLADDER 03/03/2018 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 Ot D64.89 OTHER SPECIFIED ANEMIAS 03/03/2018 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 Ot R06.02 SHORTNESS OF BREATH 03/03/2018 KIERAN KHOURY, Wei BRANDON Ot R06.02 SHORTNESS OF BREATH 03/03/2018 KELLY KHOURY, TUBA Ot D50 .9 IRON DEFICIENCY ANEMIA, UNSPECIFIED 03/03/2018 KELLY KHOURY, ERMIAS Ot R11 .2 NAUSEA WITH VOMITING, UNSPECIFIED 03/03/2018 SABRINA ROSSI DO Ot Z01.818 ENCOUNTER FOR OTHER PREPROCEDURAL EXAMIN 03/03/2018 MELIZA KHOURY, BRANDEN Ot D50.9 IRON DEFICIENCY ANEMIA, UNSPECIFIED 03/03/2018 MELIZA KHOURY, BRANDEN Ot E03.9 HYPOTHYROIDISM, UNSPECIFIED 03/03/2018 MELIZA KHOURY, BRANDEN Ot 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 03/03/2018 BRANDEN HAIDER MD Ot I12.9 HYPERTENSIVE CHRONIC KIDNEY DISEASE W ST 03/03/2018 BRANDEN HAIDER MD Ot I25.10 ATHSCL HEART DISEASE OF [place] CORONARY 03/03/2018 MELIZA KHOURY, BRANDEN Ot I48.91 UNSPECIFIED ATRIAL FIBRILLATION 03/03/2018 BRANDEN HAIDER MD Ot N18.3 CHRONIC KIDNEY DISEASE, STAGE 3 (MODERAT 03/03/2018 BRANDEN HAIDER MD Ot 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 03/03/2018 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 Ot 574.20 CHOLELITHIASIS NOS 03/03/2018 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 Ot 789.1 HEPATOMEGALY 03/03/2018 LINDA KHOURY FACC, ALI FACP CCDS Ot 401.9 HYPERTENSION NOS 03/03/2018 LINDA KHOURY FACC, ALI FACP CCDS Ot 414.00 CORON ATHEROSCLER NOS TYPE VESSEL, NATIV 03/03/2018 LINDA GONZALESC, ALI FACP CCDS Ot 427.31 ATRIAL FIBRILLATION 03/03/2018 TY KHOURY, TONIE Diaz Ot V72. 84 EXAM PRE-OPERATIVE NOS 03/03/2018 LINDA KHOURY FACC, ALI FACP CCDS Ot 250.00 DIAB NALLELY WO COMPL, TYPE II OR UNSPEC TY 03/03/2018 LINDA KHOURY FACC, ALI FACP CCDS Ot 401.9 HYPERTENSION NOS 03/03/2018 LINDA GONZALESC, ALI FACP CCDS Ot 427.0 PAROX ATRIAL TACHYCARDIA 03/03/2018 LINDA GONZALESC, ALI FACP CCDS Ot 785.1 PALPITATIONS 03/03/2018 Ot 244.9 HYPO THYROIDISM NOS 03/03/2018 Ot 280.9 IRON DEFIC ANEMIA NOS 03/03/2018 Ot 585.3 BPM ARCHITECT LEANDRO KIDNEY DISEASE, STAGE III (MODER 03/03/2018 Ot V58.69 OTH MED,LT,CURRENT USE 03/03/2018 Ot 250.02 AWA Eduardo BROWNING WO COMPL, TYPE II OR UNSPEC TY 03/03/2018 HARVEY KHOURY, CLAUDE Clement Ot 574.20 CHOLELITHIASIS NOS 03/03/2018 HARVEY KHOURY, [...] Ot D64.9 ANEMIA, UNSPECIFIED 03/03/2018 SHIREEN AGARWAL N Ot E03.9 HYPOTHYROIDISM, UNSPECIFIED 03/03/2018 SHIREEN AGARWAL N Ot 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 03/03/2018 SHIREEN AGARWAL Ot I12.9 HYPERTENSIVE CHRONIC KIDNEY DISEASE W ST 03/03/2018 SHIREEN AGARWAL Ot I25.10 ATHSCL HEART DISEASE OF [place] CORONARY 03/03/2018 SHIREEN AGARWAL Ot I48.91 UNSPECIFIED ATRIAL FIBRILLATION 03/03/2018 SHIREEN AGARWAL Ot N18.3 CHRONIC KIDNEY DISEASE, STAGE 3 (MODERAT 03/03/2018 SHIREEN AGARWAL Ot 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 03/03/2018 KIERAN KHOURY, BERNY Champion Ot I25.10 ATHSCL HEART DISEASE OF [place] CORONARY 03/03/2018 BERNY ALCARAZ MD Ot I25.10 ATHSCL HEART DISEASE OF [place] CORONARY 03/03/2018 KIERAN KHOURY, Wei BRANDON Ot I47 .1 SUPRAVENTRICULAR TACHYCARDIA 03/03/2018 KIERAN KHOURY, Wei BRANDON Ot I48.91 UNSPECIFIED ATRIAL FIBRILLATION 03/03/2018 LALO ROSSI DOTT D Ot D50. 9 IRON DEFICIENCY ANEMIA, UNSPECIFIED 03/03/2018 ROSSI DO SABRINA D Ot R19. 5 OTHER FECAL ABNORMALITIES 03/03/2018 ROSSICARLYN WOOD SABRINA D Ot Z01.818 ENCOUNTER FOR OTHER PREPROCEDURAL EXAMIN 03/03/2018 FLO WOOD SABRINA D Ot Z80. 0 FAMILY HISTORY [...] MELLITUS WITHOUT COMPLIC 03/03/2018 BRIAN KHOURY, JAMES Champion Ot I10 ESSENTIAL (PRIMARY) HYPERTENSION 03/03/2018 LALO ROSSI DOTT D Ot D64. 9 ANEMIA, UNSPECIFIED 03/03/2018 FLO WOOD SABRINA D Ot K76. 89 OTHER SPECIFIED DISEASES OF LIVER 03/03/2018 LALO ROSSI DOTT D Ot K82. 1 HYDROPS OF GALLBLADDER 03/03/2018 RACHELE JEFFERSON Ot D64.89 OTHER SPECIFIED ANEMIAS 03/03/2018 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 Ot R06.02 SHORTNESS OF BREATH 03/03/2018 KIERAN KHOURY, Wei BRANDON Ot R06.02 SHORTNESS OF BREATH 03/03/2018 KELLY KHOURY, TUBA Ot D50 .9 IRON DEFICIENCY ANEMIA, UNSPECIFIED 03/03/2018 ESFANDYARI MD, TUBA Ot R11 .2 NAUSEA WITH VOMITING, UNSPECIFIED 03/03/2018 MELIZA KHOURY, BRANDEN Ot D50.9 IRON DEFICIENCY ANEMIA, UNSPECIFIED 03/03/2018 MELIZA KHOURY, BRANDEN Ot E03.9 HYPOTHYROIDISM, UNSPECIFIED 03/03/2018 MELIZA KHOURY, OTERO Ot 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 03/03/2018 MELIZA KHOURY, OTERO Ot I12.9 HYPERTENSIVE CHRONIC KIDNEY DISEASE W ST 03/03/2018 MELIZA KHOURY, OTERO Ot I25.10 ATHSCL HEART DISEASE OF [place] CORONARY 03/03/2018 TAMARA HAIDER MDNER Ot I48.91 UNSPECIFIED ATRIAL FIBRILLATION 03/03/2018 MELIZA KHOURY, OTERO Ot N18.3 CHRONIC KIDNEY DISEASE, STAGE 3 (MODERAT 03/03/2018 MELIZA KHOURY, OTERO Ot 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 03/05/2018 BRANDEN HAIDER MD Ot D50.9 IRON DEFICIENCY ANEMIA, UNSPECIFIED 03/05/2018 BRANDEN HAIDER MD Ot E03.9 HYPOTHYROIDISM, UNSPECIFIED 03/05/2018 MELIZA KHOURY, OTERO Ot 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 03/05/2018 MELIZA KHOURY, OTERO Ot I12.9 HYPERTENSIVE CHRONIC KIDNEY DISEASE W ST 03/05/2018 MELIZA KHOURY, OTERO Ot I25.10 ATHSCL HEART DISEASE OF [place] CORONARY 03/05/2018 BRANDEN HAIDER MD Ot I48.91 UNSPECIFIED ATRIAL FIBRILLATION 03/05/2018 BRANDEN HAIDER MD Ot N18.3 CHRONIC KIDNEY DISEASE, STAGE 3 (MODERAT 03/05/2018 MELIZA KHOURY, OTERO Ot Z79.899 OTHER DETENTION (CURRENT) DRUG THERAPY 03/14/2018 BRANDEN HAIDER MD Ot D50.9 IRON DEFICIENCY ANEMIA, UNSPECIFIED 03/14/2018 BRANDEN HAIDER MD Ot E03.9 HYPOTHYROIDISM, UNSPECIFIED 03/14/2018 MELIZA KHOURY, OTERO Ot 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 03/14/2018 MELIZA KHOURY, OTERO Ot I12.9 HYPERTENSIVE CHRONIC KIDNEY DISEASE W ST 03/14/2018 MELIZA KHOURY OTERO Ot I25.10 ATHSCL HEART DISEASE OF [place] CORONARY 03/14/2018 MELIZA KHOURY OTERO Ot I48.91 UNSPECIFIED ATRIAL FIBRILLATION 03/14/2018 MELIZA KHOURY OTERO Ot N18.3 CHRONIC KIDNEY DISEASE, STAGE 3 (MODERAT 03/14/2018 MELIZA KHOURY, BRANDEN Ot Z79.899 OTHER DETENTION (CURRENT) DRUG THERAPY 03/16/2018 KIERAN KHOURY, Wei BRANDON Ot R06.02 SHORTNESS OF BREATH 03/16/2018 KELLY KHOURY, TUBA Ot D50 .9 IRON DEFICIENCY ANEMIA, UNSPECIFIED 03/16/2018 KELLY KHOURY, TUBA Ot R11 .2 NAUSEA WITH VOMITING, UNSPECIFIED 03/16/2018 SABRINA ROSSI DO Ot Z01.818 ENCOUNTER FOR OTHER PREPROCEDURAL EXAMIN 03/16/2018 MELIZA KHOURY, BRANDEN Ot D50.9 IRON DEFICIENCY ANEMIA, UNSPECIFIED 03/16/2018 BRANDEN HAIDER MD Ot E03.9 HYPOTHYROIDISM, UNSPECIFIED 03/16/2018 MELIZA KHOURY, BRANDEN Ot 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 03/16/2018 BRANDEN HAIDER MD Ot I12.9 HYPERTENSIVE CHRONIC KIDNEY DISEASE W ST 03/16/2018 BRANDEN HAIDER MD Ot I25.10 ATHSCL HEART DISEASE OF [place] CORONARY 03/16/2018 MELIZA KHOURY, BRANDEN Ot I48.91 UNSPECIFIED ATRIAL FIBRILLATION 03/16/2018 MELIZA KHOURY, BRANDEN Ot N18.3 CHRONIC KIDNEY DISEASE, STAGE 3 (MODERAT 03/16/2018 MELIZA KHOURY, BRANDEN Ot 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 03/22/2018 NWAGWU ISIDORE Jasmina 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 Ot M79.89 OTHER SPECIFIED SOFT TISSUE DISORDERS 03/22/2018 NWJOSE DE JESUSWANNEL ShannonDORE O 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 Ot M79.89 OTHER SPECIFIED SOFT TISSUE DISORDERS 03/22/2018 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 Ot 574.20 CHOLELITHIASIS NOS 03/22/2018 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 Ot 789.1 HEPATOMEGALY 03/22/2018 LINDA KHOURY FACC, ARNIE FACP CCDS Ot 401.9 HYPERTENSION NOS 03/22/2018 LINDA KHOURY FACC, ALI FACP CCDS Ot 414.00 CORON ATHEROSCLER NOS TYPE VESSEL, NATIV 03/22/2018 LINDA GONZALESC, ALI FACP CCDS Ot 427.31 ATRIAL FIBRILLATION 03/22/2018 TY KHOURY, TONIE Diaz Ot V72. 84 EXAM PRE-OPERATIVE NOS 03/22/2018 LINDA KHOURY FACC, ALI FACP CCDS Ot 250.00 DIAB NALLELY WO COMPL, TYPE II OR UNSPEC TY 03/22/2018 LINDA KHOURY FACC, ALI FACP CCDS Ot 401.9 HYPERTENSION NOS 03/22/2018 LINDA KHOURY FACC, ALI FACP CCDS Ot 427.0 PAROX ATRIAL TACHYCARDIA 03/22/2018 LINDA KHOURY FACC, ALI FACP CCDS Ot 785.1 PALPITATIONS 03/22/2018 Ot 244.9 HYPO THYROIDISM NOS 03/22/2018 Ot 280.9 IRON DEFIC ANEMIA NOS 03/22/2018 Ot 585.3 BPM ARCHITECT LEANDRO KIDNEY DISEASE, STAGE III (MODER 03/22/2018 Ot V58.69 OTH MED,LT,CURRENT USE 03/22/2018 Ot 250.02 AWA B NALLELY WO COMPL, TYPE II OR UNSPEC TY 03/22/2018 HARVEY KHOURY, CLAUDE S Ot 574.20 CHOLELITHIASIS NOS 03/22/2018 HARVEY KHOURY, CLAUDE S Ot 585.2 CHRONIC KIDNEY DISEASE, STAGE II (MILD) 03/22/2018 OVI KHOURY, WU Ot E03.9 HYPOTHYROIDISM, UNSPECIFIED 03/22/2018 OVI KHOURY, TORI-FRANKIE Ot E11.6 5 TYPE 2 DIABETES MELLITUS WITH HYPERGLYCE 03/22/2018 OVI KHOURY, TORI-FRANKIE Ot E78.5 HYPERLIPIDEMIA, UNSPECIFIED 03/22/2018 OVI KHOURY, TORI-FRANKIE Ot I10 ESSENTIAL (PRIMARY) HYPERTENSION 03/22/2018 OVI KHOURY, TORI-FRANKIE Ot E03.9 HYPOTHYROIDISM, UNSPECIFIED 03/22/2018 OVI KHOURY, TORI-FRANKIE Ot E11.9 TYPE 2 DIABETES MELLITUS WITHOUT COMPLIC 03/22/2018 OVI KHOURY, TORI-FRANKIE Ot E78.5 HYPERLIPIDEMIA, UNSPECIFIED 03/22/2018 OVI KHOURY, TORI-FRANKIE Ot I10 ESSENTIAL (PRIMARY) HYPERTENSION 03/22/2018 SHIREEN AGARWAL Ot D64.9 ANEMIA, UNSPECIFIED 03/22/2018 SHIREEN AGARWAL Ot E03.9 HYPOTHYROIDISM, UNSPECIFIED 03/22/2018 SHIREEN AGARWAL Ot 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 03/22/2018 SHIREEN AGARWAL Ot I12.9 HYPERTENSIVE CHRONIC KIDNEY DISEASE W ST 03/22/2018 SHIREEN AGARWAL Ot I25.10 ATHSCL HEART DISEASE OF [place] CORONARY 03/22/2018 SHIREEN AGARWAL Ot I48.91 UNSPECIFIED ATRIAL FIBRILLATION 03/22/2018 SHIREEN AGARWAL Ot N18.3 CHRONIC KIDNEY DISEASE, STAGE 3 (MODERAT 03/22/2018 SHIREEN AGARWAL Ot Z79.899 OTHER DETENTION (CURRENT) DRUG THERAPY 03/22/2018 BERNY ALCARAZ MD Ot I25.10 ATHSCL HEART DISEASE OF [place] CORONARY 03/22/2018 BERNY ALCARAZ MD Ot I25.10 ATHSCL HEART DISEASE OF [place] CORONARY 03/22/2018 KIERAN KHOURY, Wei BRANDON Ot [...] 9 ANEMIA, UNSPECIFIED 03/22/2018 SABRINA ROSSI DO D Ot E03. 9 HYPOTHYROIDISM, UNSPECIFIED 03/22/2018 SABRINA ROSSI DO D Ot E11. 9 TYPE 2 DIABETES MELLITUS WITHOUT COMPLIC 03/22/2018 SABRINA ROSSI DO Ot K59. 09 OTHER CONSTIPATION 03/22/2018 SABRINA ROSSI DO D Ot K29. 80 DUODENITIS WITHOUT BLEEDING 03/22/2018 JAMES TORRES MD Ot E03.9 HYPOTHYROIDISM, UNSPECIFIED 03/22/2018 JAMES TORRES MD Ot E11.9 TYPE 2 DIABETES MELLITUS WITHOUT COMPLIC 03/22/2018 JAMES TORRES MD Ot I10 ESSENTIAL (PRIMARY) HYPERTENSION 03/22/2018 SABRINA ROSSI DO D Ot D64. 9 ANEMIA, UNSPECIFIED 03/22/2018 SABRINA ROSSI DO D Ot K76. 89 OTHER SPECIFIED DISEASES OF LIVER 03/22/2018 SABRINA ROSSI DO Ot K82. 1 HYDROPS OF GALLBLADDER 03/22/2018 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 Ot D64.89 OTHER SPECIFIED ANEMIAS 03/22/2018 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 Ot R06.02 SHORTNESS OF BREATH 03/22/2018 KIERAN KHOURY, Wei BRANDON Ot R06.02 SHORTNESS OF BREATH 03/22/2018 KELLY KHOURY TUBRodrigo Ot D50 .9 IRON DEFICIENCY ANEMIA, UNSPECIFIED 03/22/2018 KELLY KHOURY TUBA Ot R11 .2 NAUSEA WITH VOMITING, UNSPECIFIED 03/22/2018 NWAGWU, ISIDORE O 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 Ot M79.89 OTHER SPECIFIED SOFT TISSUE DISORDERS 03/26/2018 NWAGWU, ISIDORE O 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 Ot M79.89 OTHER SPECIFIED SOFT TISSUE DISORDERS 03/26/2018 NWAGWU, ISIDORE O 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 Ot M79.89 OTHER SPECIFIED SOFT TISSUE DISORDERS 04/29/2018 KIERAN KHOURY, Wei BRANDON Ot R06.02 SHORTNESS OF BREATH 04/29/2018 KELLY KHOURY TUBRodrigo Ot D50 .9 IRON DEFICIENCY ANEMIA, UNSPECIFIED 04/29/2018 KELLY KHOURY TUBA Ot R11 .2 NAUSEA WITH VOMITING, UNSPECIFIED 04/29/2018 SABRINA ROSSI DO Ot Z01.818 ENCOUNTER FOR OTHER PREPROCEDURAL EXAMIN 04/29/2018 BRANDEN HAIDER MD Ot D50.9 IRON DEFICIENCY ANEMIA, UNSPECIFIED 04/29/2018 BRANDEN HAIDER MD Ot E03.9 HYPOTHYROIDISM, UNSPECIFIED 04/29/2018 BRANDEN HAIDER MD Ot 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 04/29/2018 BRANDEN HAIDER MD Ot I12.9 HYPERTENSIVE CHRONIC KIDNEY DISEASE W ST 04/29/2018 BRANDEN HAIDER MD Ot I25.10 ATHSCL HEART DISEASE OF [place] CORONARY 04/29/2018 BRANDEN HAIDER MD Ot I48.91 UNSPECIFIED ATRIAL FIBRILLATION 04/29/2018 BRANDEN HAIDER MD Ot N18.3 CHRONIC KIDNEY DISEASE, STAGE 3 (MODERAT 04/29/2018 BRANDEN HAIDER MD Ot 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 05/03/2018 ERMIAS MENDOZA MD Ot Z53 .9 PROCEDURE AND TREATMENT NOT CARRIED OUT, 05/05/2018 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 Ot D64.9 ANEMIA, UNSPECIFIED 05/05/2018 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 Ot I87.2 VENOUS INSUFFICIENCY (CHRONIC) (PERIPHER 05/10/2018 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 Ot D64.9 ANEMIA, UNSPECIFIED 05/10/2018 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 Ot I87.2 VENOUS INSUFFICIENCY (CHRONIC) (PERIPHER 05/20/2018 BRANDEN HAIDER MD, Ot D50.9 IRON DEFICIENCY ANEMIA, UNSPECIFIED 05/20/2018 BRANDEN HAIDER MD Ot E03.9 HYPOTHYROIDISM, UNSPECIFIED 05/20/2018 BRANDEN HAIDER MD Ot 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 05/20/2018 BRANDEN HAIDER MD Ot I12.9 HYPERTENSIVE CHRONIC KIDNEY DISEASE W ST 05/20/2018 BRANDEN HAIDER MD, Ot I25.10 ATHSCL HEART DISEASE OF [place] CORONARY 05/20/2018 BRANDEN HAIDER MD Ot I48.91 UNSPECIFIED ATRIAL FIBRILLATION 05/20/2018 BRANDEN HAIDER MD, Ot N18.3 CHRONIC KIDNEY DISEASE, STAGE 3 (MODERAT 05/20/2018 BRANDEN HAIDER MD Ot Z79.899 OTHER DETENTION (CURRENT) DRUG THERAPY 05/24/2018 TOMASA CARMONA MD, Ot B96.20 UNSP ESCHERICHIA COLI THE CAUSE OF DI 05/24/2018 TOMASA CARMONA MD, Ot D50 .0 IRON DEFICIENCY ANEMIA SECONDARY TO BLOO 05/24/2018 TOMASA CARMONA MD Ot E03 .9 HYPOTHYROIDISM, UNSPECIFIED 05/24/2018 TOMASA CARMONA MD, Ot E11.65 TYPE 2 DIABETES MELLITUS WITH HYPERGLYCE 05/24/2018 TOMASA CARMONA MD Ot E78 .5 HYPERLIPIDEMIA, UNSPECIFIED 05/24/2018 TOMASA CARMONA MD Ot F41 .9 ANXIETY DISORDER, UNSPECIFIED 05/24/2018 TOMASA CARMONA MD Ot 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 05/24/2018 TOMASA CARMONA MD, Ot I25.10 ATHSCL HEART DISEASE OF [place] CORONARY 05/24/2018 TOMASA CARMONA MD, Ot I25 .2 OLD MYOCARDIAL INFARCTION 05/24/2018 TOMASA CARMONA MD Ot I48 .0 PAROXYSMAL ATRIAL FIBRILLATION 05/24/2018 [...] ANEMIA SECONDARY TO BLOO 05/25/2018 TOMASA CARMONA MD Ot E03 .9 HYPOTHYROIDISM, UNSPECIFIED 05/25/2018 TOMASA CARMONA MD Ot E11.65 TYPE 2 DIABETES MELLITUS WITH HYPERGLYCE 05/25/2018 TOMASA CARMONA MD, Ot E78 .5 HYPERLIPIDEMIA, UNSPECIFIED 05/25/2018 TOMASA CARMONA MD, Ot F41 .9 ANXIETY DISORDER, UNSPECIFIED 05/25/2018 TOMASA CARMONA MD, Ot 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 05/25/2018 TOMASA CARMONA MD, Ot I25.10 ATHSCL HEART DISEASE OF [place] CORONARY 05/25/2018 TOMASA CARMONA MD, Ot I25 [...] MD, Ot I25.10 ATHSCL HEART DISEASE OF [place] CORONARY 05/25/2018 TOMASA CARMONA MD, Ot I25 [...] DIS W HRT FAIL AND ST 05/27/2018 TOMASA CARMONA MD, Ot I25.10 ATHSCL HEART DISEASE OF [place] CORONARY 05/27/2018 TOMASA CARMONA MD, Ot I25 .2 OLD MYOCARDIAL INFARCTION 05/27/2018 TOMASA CARMONA MD, Ot I27.20 PULMONARY HYPERTENSION, UNSPECIFIED 05/27/2018 TOMASA CARMONA MD Ot I34 .0 NONRHEUMATIC MITRAL (VALVE) INSUFFICIENC 05/27/2018 TOMASA CARMONA MD Ot I48 .0 PAROXYSMAL ATRIAL FIBRILLATION 05/27/2018 TOMASA CARMONA MD Ot I50 .9 HEART FAILURE, UNSPECIFIED 05/27/2018 TOMASA CARMONA MD, Ot J90 PLEURAL EFFUSION, NOT ELSEWHERE CLASSIFI 05/27/2018 TOMASA CARMONA MD, Ot K29.50 UNSPECIFIED CHRONIC GASTRITIS WITHOUT BL 05/27/2018 TOMASA CARMONA MD, Ot K31.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 05/27/2018 TOMASA CARMONA MD, Ot N18 .4 CHRONIC KIDNEY DISEASE, STAGE 4 (SEVERE) 05/27/2018 TOMASA CARMONA MD Ot N39 .0 URINARY TRACT INFECTION, SITE NOT SPECIF 05/27/2018 TOMASA CARMONA MD Ot R10.13 EPIGASTRIC PAIN 05/27/2018 TOMASA CARMONA MD Ot R78.81 BACTEREMIA 05/27/2018 TOMASA CARMONA MD Ot T80.218A OTHER INFECTION DUE TO CENTRAL VENOUS CA 05/27/2018 TOMASA CARMONA MD Ot Z87.891 PERSONAL HISTORY [...] E78.00 PURE HYPERCHOLESTEROLEMIA, UNSPECIFIED 05/28/2018 MODESTO BALDERRAMA MD Ot G47.30 SLEEP APNEA, UNSPECIFIED 05/28/2018 MODESTO BALDERRAMA MD Ot I10 ESSENTIAL (PRIMARY) HYPERTENSION 05/28/2018 MODESTO BALDERRAMA MD, Ot I25.10 ATHSCL HEART DISEASE OF [place] CORONARY 05/28/2018 MODESTO BALDERRAMA MD, Ot I25 [...] 05/28/2018 MODESTO BALDERRAMA MD, Ot Z79 .4 DRAY DRIVER (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 OF INSULIN 05/28/2018 MODESTO BALDERRAMA MD, Ot Z79.82 DRAY DRIVER (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 OF ASPIRIN 05/28/2018 MODESTO BALDERRAMA [...] TO OT DRUG/MEDS/BIOL SUB 05/28/2018 MODESTO BALDERRAMA MD Ot Z90.89 ACQUIRED ABSENCE OF OTHER ORGANS 05/28/2018 MODESTO BALDERRAMA MD Ot Z95 .5 PRESENCE OF CORONARY ANGIOPLASTY IMPLANT 05/28/2018 MODESTO BALDERRAMA MD, Ot Z95 .9 PRESENCE OF CARDIAC AND VASCULAR IMPLANT 05/28/2018 TACOS KHOURY, MODESTO Barrett Ot Z98.51 TUBAL LIGATION STATUS 05/30/2018 MACIEL WELCH APRN Ot M79.89 OTHER SPECIFIED SOFT TISSUE DISORDERS 06/01/2018 JAMES TORRES MD, Ot A41.9 SEPSIS, UNSPECIFIED ORGANISM 06/01/2018 JAMES TORRES MD, Ot D50.0 IRON DEFICIENCY ANEMIA SECONDARY TO BLOO 06/01/2018 JAMES TORRES MD Ot E03.9 HYPOTHYROIDISM, UNSPECIFIED 06/01/2018 JAMES TORRES MD Ot E11.9 TYPE 2 DIABETES MELLITUS WITHOUT COMPLIC 06/01/2018 JAMES TORRES MD Ot E66.0 1 MORBID (SEVERE) OBESITY DUE TO EXCESS CA 06/01/2018 JAMES TORRES MD, Ot E78.0 0 PURE HYPERCHOLESTEROLEMIA, UNSPECIFIED 06/01/2018 JAMES TORRES MD, Ot F41.9 ANXIETY DISORDER, UNSPECIFIED 06/01/2018 JAMES TORRES MD, Ot 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 06/01/2018 JAMES TORRES MD, Ot I25.1 0 ATHSCL HEART DISEASE OF [place] CORONARY 06/01/2018 JAMES TORRES MD, Ot I25.2 [...] MD, Ot Y92.[address] IN [facility] NON-INSTITUTIONAL RESI 06/01/2018 JAMES TORRES MD, Ot Z68.4 3 BODY MASS INDEX (BMI) 50-59.9, ADULT 06/01/2018 JAMES TORRES MD, Ot Z79.4 DETENTION (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 OF INSULIN 06/01/2018 JAMES TORRES [...] Ot I25.1 0 ATHSCL HEART DISEASE OF [place] CORONARY 06/01/2018 JAMES TORRES MD Ot I27.2 0 PULMONARY HYPERTENSION, UNSPECIFIED 06/01/2018 JAMES TORRES MD, Ot I34.0 NONRHEUMATIC MITRAL (VALVE) INSUFFICIENC 06/01/2018 [...] MD, Ot Y92.[address] IN [facility] NON-INSTITUTIONAL RESI 06/01/2018 JAMES TORRES MD, [...] MD Ot I25.10 ATHSCL HEART DISEASE OF [place] CORONARY 06/04/2018 MODESTO BALDERRAMA MD, Ot I25 [...] 06/04/2018 MODESTO BALDERRAMA MD Ot Z79 .4 DRAY DRIVER (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 OF INSULIN 06/04/2018 MODESTO BALDERRAMA MD Ot Z79.82 DETENTION (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 OF ASPIRIN 06/04/2018 MODESTO BALDERRAMA MD Ot Z80 .0 FAMILY HISTORY OF MALIGNANT NEOPLASM OF 06/04/2018 MODESTO BALDERRAMA MD Ot Z82.49 FAMILY HX OF ISCHEM HEART DIS AND OTH DI 06/04/2018 MODESTO BALDERRAMA MD Ot Z86.010 PERSONAL HISTORY OF COLONIC POLYPS 06/04/2018 MODESTO BALDERRAMA MD Ot Z87.19 PERSONAL HISTORY OF OTHER DISEASES OF TH 06/04/2018 MODESTO BALDERRAMA MD, Ot Z87.448 PERSONAL HISTORY OF OTHER DISEASES OF UR 06/04/2018 MODESTO BALDERRAMA MD Ot Z87.8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 06/04/2018 MODESTO BALDERRAMA MD Ot Z88 .8 ALLERGY STATUS TO OTH DRUG/MEDS/BIOL SUB 06/04/2018 MODESTO BALDERRAMA MD Ot Z90.89 ACQUIRED ABSENCE OF OTHER ORGANS 06/04/2018 MODESTO BALDERRAMA MD Ot Z95 .5 PRESENCE OF CORONARY ANGIOPLASTY IMPLANT 06/04/2018 MODESTO BALDERRAMA MD Ot Z95 .9 PRESENCE OF CARDIAC AND VASCULAR IMPLANT 06/04/2018 MODESTO BALDERRAMA MD Ot Z98.51 TUBAL LIGATION STATUS 06/14/2018 BRANDEN HAIDER MD Ot D50.9 IRON DEFICIENCY ANEMIA, UNSPECIFIED 06/14/2018 BRANDEN HAIDER MD Ot E03.9 HYPOTHYROIDISM, UNSPECIFIED 06/14/2018 BRANDEN HAIDER MD Ot 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 06/14/2018 BRANDEN HAIDER MD Ot I12.9 HYPERTENSIVE CHRONIC KIDNEY DISEASE W ST 06/14/2018 BRANDEN HAIDER MD Ot I25.10 ATHSCL HEART DISEASE OF [place] CORONARY 06/14/2018 BRANDEN HAIDER MD Ot I48.91 UNSPECIFIED ATRIAL FIBRILLATION 06/14/2018 BRANDEN HAIDER MD Ot N18.3 CHRONIC KIDNEY DISEASE, STAGE 3 (MODERAT 06/14/2018 BRANDEN HAIDER MD Ot 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 06/18/2018 NWAGWU, ISIDORE O 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 Ot M79.89 OTHER SPECIFIED SOFT TISSUE DISORDERS 06/18/2018 NWAGWU, ISIDORE O 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 Ot M79.89 OTHER SPECIFIED SOFT TISSUE DISORDERS 06/18/2018 KIERAN KHOURY, Wei BRANDON Ot I47 .1 SUPRAVENTRICULAR TACHYCARDIA 06/18/2018 KIERAN KHOURY, Wei BRANDON Ot I48.91 UNSPECIFIED ATRIAL FIBRILLATION 06/18/2018 SHIREEN AGARWAL Ot D50.9 IRON DEFICIENCY ANEMIA, UNSPECIFIED 06/18/2018 SHIREEN AGARWAL Ot E03.9 HYPOTHYROIDISM, UNSPECIFIED 06/18/2018 SHIREEN AGARWAL Ot 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 06/18/2018 SHIREEN AGARWAL Ot I12.9 HYPERTENSIVE CHRONIC KIDNEY DISEASE W ST 06/18/2018 SHIREEN AGARWAL Ot I25.10 ATHSCL HEART DISEASE OF [place] CORONARY 06/18/2018 SHIREEN AGARWAL Ot I48.91 UNSPECIFIED ATRIAL FIBRILLATION 06/18/2018 SHIREEN AGARWAL Ot N18.3 CHRONIC KIDNEY DISEASE, STAGE 3 (MODERAT 06/18/2018 SHIREEN AGARWAL Solange Ot Z79.899 OTHER DETENTION (CURRENT) DRUG THERAPY 06/20/2018 BRANDEN HAIDER MD Ot D50.9 IRON DEFICIENCY ANEMIA, UNSPECIFIED 06/20/2018 BRANDEN HAIDER MD Ot E03.9 HYPOTHYROIDISM, UNSPECIFIED 06/20/2018 BRANDEN HAIDER MD Ot 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 06/20/2018 BRANDEN HAIDER MD Ot I12.9 HYPERTENSIVE CHRONIC KIDNEY DISEASE W ST 06/20/2018 BRANDEN HAIDER MD Ot I25.10 ATHSCL HEART DISEASE OF [place] CORONARY 06/20/2018 BRANDEN HAIDER MD Ot I48.91 UNSPECIFIED ATRIAL FIBRILLATION 06/20/2018 BRANDEN HAIDER MD Ot N18.3 CHRONIC KIDNEY DISEASE, STAGE 3 (MODERAT 06/20/2018 MELIZA KHOURY, BRANDEN Ot 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 07/01/2018 RADHA WOOD MICHELLE Ot D64.9 ANEMIA, UNSPECIFIED 07/01/2018 RADHA WOOD MICHELLE Ot D69.6 THROMBOCYTOPENIA, UNSPECIFIED 07/01/2018 RADHA WOOD MICHELLE Ot E03.9 HYPOTHYROIDISM, UNSPECIFIED 07/01/2018 RADHA WOOD MICHELLE Ot E11.65 TYPE 2 DIABETES MELLITUS WITH HYPERGLYCE 07/01/2018 RADHA WOOD MICHELLE Ot E66.01 MORBID (SEVERE) OBESITY DUE TO EXCESS CA 07/01/2018 RADHA DO MICHELLE Ot E78.5 HYPERLIPIDEMIA, UNSPECIFIED 07/01/2018 RADHA WOOD MICHELLE Ot F41.9 ANXIETY DISORDER, UNSPECIFIED 07/01/2018 RADHA WOOD MICHELLE Ot G72.81 CRITICAL ILLNESS MYOPATHY 07/01/2018 RADHA WOOD MICHELLE Ot 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 07/01/2018 RADHA WOOD MICHELLE Ot I25.10 ATHSCL HEART DISEASE OF [place] CORONARY 07/01/2018 RADHA WOOD MICHELLE Ot I25.2 OLD MYOCARDIAL INFARCTION 07/01/2018 RADHA WOOD MICHELLE Ot I48.0 PAROXYSMAL ATRIAL FIBRILLATION 07/01/2018 RADHA WOOD MICHELLE Ot I50.32 CHRONIC DIASTOLIC (CONGESTIVE) HEART KATY 07/01/2018 RADHA WOOD MICHELLE Ot J44.9 CHRONIC OBSTRUCTIVE PULMONARY DISEASE, U 07/01/2018 RADHA WOOD MICHELLE Ot K21.9 GASTRO-ESOPHAGEAL REFLUX DISEASE WITHOUT 07/01/2018 RADHA WOOD MICHELLE Ot K22.70 ZELAYA'S ESOPHAGUS WITHOUT DYSPLASIA 07/01/2018 RADHA WOOD MICHELLE Ot K31.81 1 ANGIODYSPLASIA OF STOMACH AND DUODENUM W 07/01/2018 EMILIANO GARCIA DOI Ot K74.60 UNSPECIFIED CIRRHOSIS OF LIVER 07/01/2018 EMILIANO GARCIA DOI Ot L40.9 PSORIASIS, UNSPECIFIED 07/01/2018 RADHA WOOD MICHELLE Ot N18.9 CHRONIC KIDNEY DISEASE, UNSPECIFIED 07/01/2018 EMILIANO GARCIA DOI Ot R09.02 HYPOXEMIA 07/01/2018 MICHELLE GARCIA DO Ot Z68.42 BODY MASS INDEX (BMI) 45.0-49.9, ADULT 07/01/2018 EMILIANO GARCIA DOI Ot Z79.4 DETENTION (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 OF INSULIN 07/01/2018 EMILIANO GARCIA DOI Ot Z87.89 1 PERSONAL HISTORY OF NICOTINE DEPENDENCE 07/01/2018 EMILIANO GARCIA DOI Ot Z95.1 PRESENCE OF AORTOCORONARY BYPASS GRAFT 07/01/2018 EMILIANO GARCIA DOI Ot Z95.5 PRESENCE OF CORONARY ANGIOPLASTY IMPLANT 07/01/2018 EMILIANO GARCIA DOI Ot Z99.81 DEPENDENCE ON SUPPLEMENTAL OXYGEN 07/01/2018 RADHA WOOD MICHELLE Ot D50.0 IRON DEFICIENCY ANEMIA SECONDARY TO BLOO 07/01/2018 EMILIANO GARCIA DOI Ot D64.9 ANEMIA, UNSPECIFIED 07/01/2018 EMILIANO GARCIA DOI Ot D69.6 THROMBOCYTOPENIA, UNSPECIFIED 07/01/2018 RADHA WOOD MICHELLE Ot D70.9 NEUTROPENIA, UNSPECIFIED 07/01/2018 RADHA WOOD MICHELLE Ot E03.9 HYPOTHYROIDISM, UNSPECIFIED 07/01/2018 RADHA WOOD MICHELLE Ot E11.65 TYPE 2 DIABETES MELLITUS WITH HYPERGLYCE 07/01/2018 RADHA WOOD MICHELLE Ot E53.8 DEFICIENCY OF OTHER SPECIFIED B GROUP 07/01/2018 RADHA WOOD MICHELLE Ot E66.01 MORBID (SEVERE) OBESITY DUE TO EXCESS CA 07/01/2018 RADHA WOOD MICHELLE Ot E78.5 HYPERLIPIDEMIA, UNSPECIFIED 07/01/2018 MICHELLE GARCIA DO Ot E83.42 HYPOMAGNESEMIA 07/01/2018 MICHELLE GARCIA DO Ot F41.9 ANXIETY DISORDER, UNSPECIFIED 07/01/2018 MICHELLE GARCIA DO Ot G72.81 CRITICAL ILLNESS MYOPATHY 07/01/2018 MICHELLE GARCIA DO Ot 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 07/01/2018 MICHELLE GARCIA DO Ot I25.10 ATHSCL HEART DISEASE OF [place] CORONARY 07/01/2018 MICHELLE GARCIA DO Ot I25.11 9 ATHSCL HEART DISEASE OF [place] COR ART W 07/01/2018 EMILIANO GARCIA DOI Ot I25.2 OLD MYOCARDIAL INFARCTION 07/01/2018 MICHELLE GARCIA DO Ot I31.3 PERICARDIAL EFFUSION (NONINFLAMMATORY) 07/01/2018 EMILIANO GARCIA DOI Ot I48.0 PAROXYSMAL ATRIAL FIBRILLATION 07/01/2018 EMILIANO GARCIA DOI Ot I50.32 CHRONIC DIASTOLIC (CONGESTIVE) HEART KATY 07/01/2018 EMILIANO GARCIA DOI Ot I87.2 VENOUS INSUFFICIENCY (CHRONIC) (PERIPHER 07/01/2018 EMILIANO GARCIA DOI Ot J44.9 CHRONIC OBSTRUCTIVE PULMONARY DISEASE, U 07/01/2018 MICHELLE GARCIA DO Ot J90 PLEURAL EFFUSION, NOT ELSEWHERE CLASSIFI 07/01/2018 EMILIANO GARCIA DOI Ot J96.11 CHRONIC RESPIRATORY FAILURE WITH HYPOXIA 07/01/2018 MICHELLE GARCIA DO Ot K21.9 GASTRO-ESOPHAGEAL REFLUX DISEASE WITHOUT 07/01/2018 EMILIANO GARCIA DOI Ot K22.70 ZELAYA'S ESOPHAGUS WITHOUT DYSPLASIA 07/01/2018 MICHELLE GARCIA DO Ot K31.81 1 ANGIODYSPLASIA OF STOMACH AND DUODENUM W 07/01/2018 EMILIANO GARCIA DOI Ot K74.60 UNSPECIFIED CIRRHOSIS OF LIVER 07/01/2018 EMILIANO GARCIA DOI Ot K76.6 PORTAL HYPERTENSION 07/01/2018 MICHELLE GARCIA DO Ot L40.9 PSORIASIS, UNSPECIFIED 07/01/2018 EMILIANO GARCIA DOI Ot N18.3 CHRONIC KIDNEY DISEASE, STAGE 3 (MODERAT 07/01/2018 EMILIANO GARCIA DOI Ot N18.9 CHRONIC KIDNEY DISEASE, UNSPECIFIED 07/01/2018 MICHELLE GARCIA DO Ot R09.02 HYPOXEMIA 07/01/2018 EMILIANO GARCIA DOI Ot S46.91 2A STRAIN UNSP MUSC/FASC/TEND AT SHLDR/UP A 07/01/2018 EMILIANO GARCIA DOI Ot Z68.42 BODY MASS INDEX (BMI) 45.0-49.9, ADULT 07/01/2018 EMILIANO GARCIA DOI Ot Z79.4 DETENTION (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 OF INSULIN 07/01/2018 EMILIANO GARCIA DOI Ot Z87.89 1 PERSONAL HISTORY OF NICOTINE DEPENDENCE 07/01/2018 EMILIANO GARCIA DOI Ot Z95.1 PRESENCE OF AORTOCORONARY BYPASS GRAFT 07/01/2018 RADHA WOODMICHELLE Ot Z95.5 PRESENCE OF CORONARY ANGIOPLASTY IMPLANT 07/01/2018 RADHA WOODMICHELLE Ot Z99.81 DEPENDENCE ON SUPPLEMENTAL OXYGEN 07/07/2018 SHIREEN AGARWAL Ot D64.9 ANEMIA, UNSPECIFIED 07/07/2018 SHIREEN AGARWAL N Ot E11.9 TYPE 2 DIABETES MELLITUS WITHOUT COMPLIC 07/07/2018 SHIREEN AGARWAL Ot K74.60 UNSPECIFIED CIRRHOSIS OF LIVER 07/07/2018 SHIREEN AGARWAL N Ot N18.9 CHRONIC KIDNEY DISEASE, UNSPECIFIED 07/09/2018 JAMES TORRES MD Ot D64.9 ANEMIA, UNSPECIFIED 07/09/2018 JAMES TORRES MD Ot E11.2 2 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 07/09/2018 JAMES TORRES MD Ot K74.6 0 UNSPECIFIED CIRRHOSIS OF LIVER 07/09/2018 JAMES TORRES MD, Ot N18.9 CHRONIC KIDNEY DISEASE, UNSPECIFIED 07/13/2018 NWJOSE DE JESUSWU, MACIEL Freedman APRN Ot M79.89 OTHER SPECIFIED SOFT TISSUE DISORDERS 07/13/2018 SHIREEN AGARWAL N Ot D50.9 IRON DEFICIENCY ANEMIA, UNSPECIFIED 07/13/2018 SHIREEN AGARWAL Ot E03.9 HYPOTHYROIDISM, UNSPECIFIED 07/13/2018 SHIREEN AGARWAL N Ot 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 07/13/2018 SHIREEN AGARWAL N Ot I12.9 HYPERTENSIVE CHRONIC KIDNEY DISEASE W ST 07/13/2018 SHIREEN AGARWAL Ot I25.10 ATHSCL HEART DISEASE OF [place] CORONARY 07/13/2018 ANY, BOBAN N Ot I48.91 UNSPECIFIED ATRIAL FIBRILLATION 07/13/2018 ANY, BOBAN N Ot N18.3 CHRONIC KIDNEY DISEASE, STAGE 3 (MODERAT 07/13/2018 ANY, BOBAN N Ot Z79.899 OTHER DETENTION (CURRENT) DRUG THERAPY 07/13/2018 ANY BOBAN N Ot D64.9 ANEMIA, UNSPECIFIED 07/13/2018 ANY, BOBAN N Ot E11.9 TYPE 2 DIABETES MELLITUS WITHOUT COMPLIC 07/13/2018 ANY, BOBAN N Ot K74.60 UNSPECIFIED CIRRHOSIS OF LIVER 07/13/2018 ANY, BOBAN N Ot N18.9 CHRONIC KIDNEY DISEASE, UNSPECIFIED 07/13/2018 JAMES TORRES MD R Ot D64.9 ANEMIA, UNSPECIFIED 07/13/2018 BRIAN KHOURY, JAMES R Ot E11.2 2 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 07/13/2018 JAMES TORRES MD R Ot K74.6 0 UNSPECIFIED CIRRHOSIS OF LIVER 07/13/2018 JAMES TORRES MD R Ot N18.9 CHRONIC KIDNEY DISEASE, UNSPECIFIED 07/15/2018 ANY, BOBAN N Ot D50.9 IRON DEFICIENCY ANEMIA, UNSPECIFIED 07/15/2018 ANY, BOBAN N Ot E03.9 HYPOTHYROIDISM, UNSPECIFIED 07/15/2018 ANY, BOBAN N Ot 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 07/15/2018 ANY, BOBAN N Ot I12.9 HYPERTENSIVE CHRONIC KIDNEY DISEASE W ST 07/15/2018 ANY, BOBAN N Ot I25.10 ATHSCL HEART DISEASE OF [place] CORONARY 07/15/2018 ANY, BOBAN N Ot I48.91 UNSPECIFIED ATRIAL FIBRILLATION 07/15/2018 ANY, BOBAN N Ot N18.3 CHRONIC KIDNEY DISEASE, STAGE 3 (MODERAT 07/15/2018 ANY, BOBAN N Ot 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 07/28/2018 JAMES TORRES MD R Ot D64.9 ANEMIA, UNSPECIFIED 07/28/2018 JAMES TORRES MD R Ot E11.2 2 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 07/28/2018 JAMES TORRES MD R Ot K74.6 0 UNSPECIFIED CIRRHOSIS OF LIVER 07/28/2018 JAMES TORRES MD R Ot N18.9 CHRONIC KIDNEY DISEASE, UNSPECIFIED 07/29/2018 ANY SHIREEN W 250.00 07/29/2018 ANY SHIREEN W 359.9 07/29/2018 ANY SHIREEN W 404.01 07/29/2018 ANYSHIREEN W 427.31 ATRIAL FIBRILLATION 07/29/2018 ANY SHIREEN W 428.32 07/29/2018 ANY SHIREEN W 511.1 PLEURISY WITH EFFUSION, WITH MENTION OF A BACTERIAL CAUSE OTHER THAN TUBERCULOSIS 07/29/2018 ANYSHIREEN W 537.83 ANGIODYSPLASIA OF STOMACH AND DUODENUM WITH HEMORRHAGE 07/29/2018 ANYSHIREEN BALDWIN W 572.3 PORTAL HYPERTENSION 07/29/2018 SHIREEN AGARWAL W 585.3 CHRONIC KIDNEY DISEASE, STAGE III (MODERATE) 07/29/2018 SHIREEN AGARWAL W E11.9 TYPE 2 DIABETES MELLITUS WITHOUT COMPLICATIONS 07/29/2018 SHIREEN AGARWAL G72.9 MYOPATHY, UNSPECIFIED 07/29/2018 SHIREEN AGARWAL I13.0 HYP HRT T CHR 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G 1-4/UNSP CHR KDNY 07/29/2018 ANYSHIREEN W I48.0 PAROXYSMAL ATRIAL FIBRILLATION 07/29/2018 SHIREEN AGARWAL I50.32 CHRONIC DIASTOLIC (CONGESTIVE) HEART FAILURE 07/29/2018 SHIREEN AGARWAL J90 PLEURAL EFFUSION, NOT ELSEWHERE CLASSIFIED 07/29/2018 SHIREEN AGARWAL K31.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ITH BLEEDING 07/29/2018 SHIREEN AGARWAL K76.6 PORTAL HYPERTENSION 07/29/2018 SHIREEN AGARWAL N18.3 CHRONIC KIDNEY DISEASE, STAGE 3 (MODERATE) 08/06/2018 HSIREEN AGARWAL Ot D50.0 IRON DEFICIENCY ANEMIA SECONDARY TO BLOO 08/06/2018 SHIREEN AGARWAL Ot E03.9 HYPOTHYROIDISM, UNSPECIFIED 08/06/2018 SHIREEN AGARWAL Ot 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 08/06/2018 SHIREEN AGARWAL Ot E53.8 DEFICIENCY OF OTHER SPECIFIED B GROUP 08/06/2018 SHIREEN AGARWAL Ot I12.9 HYPERTENSIVE CHRONIC KIDNEY DISEASE W ST 08/06/2018 SHIREEN AGARWAL Ot I25.10 ATHSCL HEART DISEASE OF [place] CORONARY 08/06/2018 SHIREEN AGARWAL Ot I48.91 UNSPECIFIED ATRIAL FIBRILLATION 08/06/2018 SHIREEN AGARWAL N Ot K31.819 ANGIODYSPLASIA OF STOMACH AND DUODENUM W 08/06/2018 SHIREEN AGARWAL N Ot K74.60 UNSPECIFIED CIRRHOSIS OF LIVER 08/06/2018 SHIREEN AGARWAL Ot N18.3 CHRONIC KIDNEY DISEASE, STAGE 3 (MODERAT 08/06/2018 SHIREEN AGARWAL N Ot 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 08/17/2018 NWAGWU, MICHAELRE O 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 Ot M79.89 OTHER SPECIFIED SOFT TISSUE DISORDERS 08/17/2018 SHIREEN AGARWAL Ot D50.0 IRON DEFICIENCY ANEMIA SECONDARY TO BLOO 08/17/2018 SHIREEN AGARWAL Ot E03.9 HYPOTHYROIDISM, UNSPECIFIED 08/17/2018 SHIREEN AGARWAL N Ot 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 08/17/2018 SHIREEN AGARWAL Ot E53.8 DEFICIENCY OF OTHER SPECIFIED B GROUP 08/17/2018 SHIREEN AGARWAL N Ot I12.9 HYPERTENSIVE CHRONIC KIDNEY DISEASE W ST 08/17/2018 SHIREEN AGARWAL Ot I25.10 ATHSCL HEART DISEASE OF [place] CORONARY 08/17/2018 SHIREEN AGARWAL Ot I48.91 UNSPECIFIED ATRIAL FIBRILLATION 08/17/2018 SHIREEN AGARWAL N Ot K31.819 ANGIODYSPLASIA OF STOMACH AND DUODENUM W 08/17/2018 SHIREEN AGARWAL N Ot K74.60 UNSPECIFIED CIRRHOSIS OF LIVER 08/17/2018 SHIREEN AGARWAL N Ot N18.3 CHRONIC KIDNEY DISEASE, STAGE 3 (MODERAT 08/17/2018 SHIREEN AGARWAL N Ot Z79.899 OTHER DETENTION (CURRENT) DRUG THERAPY 08/17/2018 SHIREEN AGARWAL N Ot D64.9 ANEMIA, UNSPECIFIED 08/17/2018 SHIREEN AGARWAL N Ot E11.9 TYPE 2 DIABETES MELLITUS WITHOUT COMPLIC 08/17/2018 SHIREEN AGARWAL N Ot K74.60 UNSPECIFIED CIRRHOSIS OF LIVER 08/17/2018 SHIREEN AGARWAL N Ot N18.9 CHRONIC KIDNEY DISEASE, UNSPECIFIED 08/17/2018 BRIAN KHOURY, JAMES R Ot D64.9 ANEMIA, UNSPECIFIED 08/17/2018 BRIAN KHOURY, JAMES R Ot E11.2 2 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 08/17/2018 BRIAN KHOURY, JAMES R Ot K74.6 [...] HYPOTHYROIDISM, UNSPECIFIED 09/22/2018 KRUNAL KHOURY PHD, LULA S Ot I50.32 CHRONIC DIASTOLIC (CONGESTIVE) HEART KATY 09/22/2018 KRUNAL KHOURY PHD, LULA S Ot I50.32 CHRONIC DIASTOLIC (CONGESTIVE) HEART KATY 09/27/2018 KRUNAL KHOURY PHD, LULA Clement Ot I50.32 CHRONIC DIASTOLIC (CONGESTIVE) HEART KATY 09/27/2018 KATERYNA KHOURY, MAUREEN Rashid Ot D64.9 ANEMIA, UNSPECIFIED 09/27/2018 KATERYNA KHOURY, MAUREEN Rashid Ot 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 09/27/2018 KATERYNA KHOURY, MAUREEN Rashid Ot E78.00 PURE HYPERCHOLESTEROLEMIA, UNSPECIFIED 09/27/2018 KATERYNA KHOURY, MAUREEN Rashid Ot E87.70 FLUID OVERLOAD, UNSPECIFIED 09/27/2018 KATERYNA KHOURY, MAUREEN Rashid Ot F41.9 ANXIETY DISORDER, UNSPECIFIED 09/27/2018 KATERYNA KHOURY, MAUREEN Rashid Ot G47.30 SLEEP APNEA, UNSPECIFIED 09/27/2018 KATERYNA KHOURY, MAUREEN Rashid Ot 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 09/27/2018 KATERYNA KHOURY, MAUREEN Rashid Ot I25.10 ATHSCL HEART DISEASE OF [place] CORONARY 09/27/2018 MAUREEN AVENDAÑO MD, Ot I25.2 OLD MYOCARDIAL INFARCTION 09/27/2018 MAUREEN AVENDAÑO MD, Ot I48.91 UNSPECIFIED ATRIAL FIBRILLATION 09/27/2018 MAUREEN AVENDAÑO MD, Ot I50.9 HEART FAILURE, UNSPECIFIED 09/27/2018 MAUREEN AVENDAÑO MD, Ot K21.9 GASTRO-ESOPHAGEAL REFLUX DISEASE WITHOUT 09/27/2018 MAUREEN AVENDAÑO MD, Ot N18.9 CHRONIC KIDNEY DISEASE, UNSPECIFIED 09/27/2018 MAUREEN AVENDAÑO MD, Ot R06.02 SHORTNESS OF BREATH 09/27/2018 MAUREEN AVENDAÑO MD, Ot Z79.4 DETENTION (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 OF INSULIN 09/27/2018 MAUREEN AVENDAÑO MD, Ot Z80.0 FAMILY HISTORY OF MALIGNANT NEOPLASM OF 09/27/2018 MAUREEN AVENDAÑO MD, Ot Z82.49 FAMILY HX OF ISCHEM HEART DIS AND OTH DI 09/27/2018 MAUREEN AVENDAÑO MD, Ot Z86.010 PERSONAL HISTORY OF COLONIC POLYPS 09/27/2018 MAUREEN AVENDAÑO MD, Ot Z87.19 PERSONAL HISTORY OF OTHER DISEASES OF TH 09/27/2018 AMUREEN AVENDAÑO MD, Ot Z87.8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 09/27/2018 MAUREEN AVENDAÑO MD, Ot Z88.2 ALLERGY STATUS TO SULFONAMIDES STATUS 09/27/2018 MAUREEN AVENDAÑO MD, Ot Z88.8 ALLERGY STATUS TO OT DRUG/MEDS/BIOL SUB 09/27/2018 MAUREEN AVENDAÑO MD, Ot Z90.89 ACQUIRED ABSENCE OF OTHER ORGANS 09/27/2018 MAUREEN AVENDAÑO MD, Ot Z95.5 PRESENCE OF CORONARY ANGIOPLASTY IMPLANT 09/27/2018 MAUREEN AVENDAÑO MD, Ot Z98.51 TUBAL LIGATION STATUS 09/27/2018 MAUREEN AVENDAÑO MD, Ot Z98.890 OTHER SPECIFIED POSTPROCEDURAL STATES 09/27/2018 MAUREEN AVENDAÑO MD, Ot Z99.81 DEPENDENCE ON SUPPLEMENTAL OXYGEN 09/29/2018 MAUREEN AVENDAÑO MD, Ot D64.9 ANEMIA, UNSPECIFIED 09/29/2018 MAUREEN AVENDAÑO MD, Ot 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 09/29/2018 MAUREEN AVENDAÑO MD, Ot E78.00 PURE HYPERCHOLESTEROLEMIA, UNSPECIFIED 09/29/2018 MAUREEN AVENDAÑO MD, Ot E87.70 FLUID OVERLOAD, UNSPECIFIED 09/29/2018 MAUREEN AVENDAÑO MD, Ot F41.9 ANXIETY DISORDER, UNSPECIFIED 09/29/2018 MAUREEN AVENDAÑO MD, Ot G47.30 SLEEP APNEA, UNSPECIFIED 09/29/2018 MAUREEN AVENDAÑO MD, Ot 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 09/29/2018 MAUREEN AVENDAÑO MD, Ot I25.10 ATHSCL HEART DISEASE OF [place] CORONARY 09/29/2018 MAUREEN AVENDAÑO MD, Ot I25.2 OLD MYOCARDIAL INFARCTION 09/29/2018 MAUREEN AVENDAÑO MD, Ot I48.91 UNSPECIFIED ATRIAL FIBRILLATION 09/29/2018 MAUREEN AVENDAÑO MD, Ot I50.9 HEART FAILURE, UNSPECIFIED 09/29/2018 MAUREEN AVENDAÑO MD, Ot K21.9 GASTRO-ESOPHAGEAL REFLUX DISEASE WITHOUT 09/29/2018 MAUREEN AVENDAÑO MD, Ot N18.9 CHRONIC KIDNEY DISEASE, UNSPECIFIED 09/29/2018 MAUREEN AVENDAÑO MD, Ot R06.02 SHORTNESS OF BREATH 09/29/2018 MAUREEN AVENDAÑO MD, Ot Z79.4 DRAY DRIVER (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 OF INSULIN 09/29/2018 MAUREEN AVENDAÑO [...] TO OTH DRUG/MEDS/BIOL SUB 09/29/2018 MAUREEN AVENDAÑO MD Ot Z90.89 ACQUIRED ABSENCE OF OTHER [...] 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 10/07/2018 SHIREEN AGARWAL Ot E53.8 DEFICIENCY OF OTHER SPECIFIED B GROUP 10/07/2018 SHIREEN AGARWAL Ot I12.9 HYPERTENSIVE CHRONIC KIDNEY DISEASE W ST 10/07/2018 SHIREEN AGARWAL Ot I25.10 ATHSCL HEART DISEASE OF [place] CORONARY 10/07/2018 SHIREEN AGARWAL Ot I48.91 UNSPECIFIED ATRIAL FIBRILLATION 10/07/2018 SHIREEN AGARWAL Ot K31.819 ANGIODYSPLASIA OF STOMACH AND DUODENUM W 10/07/2018 SHIREEN AGARWAL Ot K74.60 UNSPECIFIED CIRRHOSIS OF LIVER 10/07/2018 SHIREEN AGARWAL Ot N18.3 CHRONIC KIDNEY DISEASE, STAGE 3 (MODERAT 10/07/2018 SHIREEN AGARWAL Ot 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 10/07/2018 MACIEL WELCH APRN Ot M79.89 OTHER SPECIFIED SOFT TISSUE DISORDERS 10/07/2018 SHIREEN AGARWAL Ot D64.9 ANEMIA, UNSPECIFIED 10/07/2018 SHIREEN AGARWAL Ot E11.9 TYPE 2 DIABETES MELLITUS WITHOUT COMPLIC 10/07/2018 SHIREEN AGARWAL Ot K74.60 UNSPECIFIED CIRRHOSIS OF LIVER 10/07/2018 SHIREEN AGARWAL Ot N18.9 CHRONIC KIDNEY DISEASE, UNSPECIFIED 10/07/2018 BRIAN KHOURY, JAMES R Ot D64.9 ANEMIA, UNSPECIFIED 10/07/2018 BRIAN KHOURY, JAMES R Ot E11.2 2 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 10/07/2018 BRIAN KHOURY, JAMES R Ot K74.6 0 UNSPECIFIED CIRRHOSIS OF LIVER 10/07/2018 BRIAN KHOURY, JAMES R Ot N18.9 CHRONIC KIDNEY DISEASE, UNSPECIFIED 10/07/2018 BRIAN KHOURY, JAMES R Ot E03.9 HYPOTHYROIDISM, UNSPECIFIED 10/07/2018 KRUNAL KHOURY PHD, LULA S Ot I50.32 CHRONIC DIASTOLIC (CONGESTIVE) HEART KATY 10/07/2018 KRUNAL KHOURY PHD, LULA Clement Ot E03.9 HYPOTHYROIDISM, UNSPECIFIED 10/07/2018 KRUNAL KHOURY PHD, LULA S Ot I50.32 CHRONIC DIASTOLIC (CONGESTIVE) HEART KATY 10/07/2018 KRUNAL KHOURY PHD, LULA S Ot I50.32 CHRONIC DIASTOLIC (CONGESTIVE) HEART KATY 10/07/2018 SHIREEN AGARWAL Ot D50.0 IRON DEFICIENCY ANEMIA SECONDARY TO BLOO 10/07/2018 SHIREEN AGARWAL N Ot E03.9 HYPOTHYROIDISM, UNSPECIFIED 10/07/2018 SHIREEN AGARWAL N Ot 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 10/07/2018 SHIREEN AGARWAL Ot E53.8 DEFICIENCY OF OTHER SPECIFIED B GROUP 10/07/2018 SHIREEN AGARWAL N Ot I12.9 HYPERTENSIVE CHRONIC KIDNEY DISEASE W ST 10/07/2018 SHIREEN AGARWAL N Ot I25.10 ATHSCL HEART DISEASE OF [place] CORONARY 10/07/2018 SHIREEN AGARWAL Ot I48.91 UNSPECIFIED ATRIAL FIBRILLATION 10/07/2018 SHIREEN AGARWAL N Ot K31.819 ANGIODYSPLASIA OF STOMACH AND DUODENUM W 10/07/2018 SHIREEN AGARWAL N Ot K74.60 UNSPECIFIED CIRRHOSIS OF LIVER 10/07/2018 SHIREEN AGARWAL Ot N18.3 CHRONIC KIDNEY DISEASE, STAGE 3 (MODERAT 10/07/2018 ANY JJAN N Ot Z79.899 OTHER DETENTION (CURRENT) DRUG THERAPY 10/07/2018 ANYJJAN N Ot D50.0 IRON DEFICIENCY ANEMIA SECONDARY TO BLOO 10/07/2018 ANYJJAN N Ot E03.9 HYPOTHYROIDISM, UNSPECIFIED 10/07/2018 ANY, JJAN N Ot 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 10/07/2018 ANYSHIREEN N Ot E53.8 DEFICIENCY OF OTHER SPECIFIED B GROUP 10/07/2018 ANYJJAN N Ot I12.9 HYPERTENSIVE CHRONIC KIDNEY DISEASE W ST 10/07/2018 ANYJJAN N Ot I25.10 ATHSCL HEART DISEASE OF [place] CORONARY 10/07/2018 ANYSHIREEN N Ot I48.91 UNSPECIFIED ATRIAL FIBRILLATION 10/07/2018 ANYSHIREEN N Ot K31.819 ANGIODYSPLASIA OF STOMACH AND DUODENUM W 10/07/2018 ANYSHIREEN N Ot K74.60 UNSPECIFIED CIRRHOSIS OF LIVER 10/07/2018 ANYSHIREEN N Ot N18.3 CHRONIC KIDNEY DISEASE, STAGE 3 (MODERAT 10/07/2018 ANYJJAN N Ot 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 10/07/2018 SHIREEN AGARWAL N Ot D50.0 IRON DEFICIENCY ANEMIA SECONDARY TO BLOO 10/07/2018 SHIREEN AGARWAL N Ot E03.9 HYPOTHYROIDISM, UNSPECIFIED 10/07/2018 ANYSHIREEN N Ot 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 10/07/2018 ANYSHIREEN N Ot E53.8 DEFICIENCY OF OTHER SPECIFIED B GROUP 10/07/2018 ANYSHIREEN N Ot I12.9 HYPERTENSIVE CHRONIC KIDNEY DISEASE W ST 10/07/2018 ANYSHIREEN N Ot I25.10 ATHSCL HEART DISEASE OF [place] CORONARY 10/07/2018 ANYSHIREEN N Ot I48.91 UNSPECIFIED ATRIAL FIBRILLATION 10/07/2018 ANYJJAN N Ot K31.819 ANGIODYSPLASIA OF STOMACH AND DUODENUM W 10/07/2018 ANYSHIREEN N Ot K74.60 UNSPECIFIED CIRRHOSIS OF LIVER 10/07/2018 ANYSHIREEN N Ot N18.3 CHRONIC KIDNEY DISEASE, STAGE 3 (MODERAT 10/07/2018 ANYJJAN N Ot Z79.899 OTHER DETENTION (CURRENT) DRUG THERAPY 10/07/2018 ANYSHIREEN N Ot D50.0 IRON DEFICIENCY ANEMIA SECONDARY TO BLOO 10/07/2018 SHIREEN AGARWAL N Ot E03.9 HYPOTHYROIDISM, UNSPECIFIED 10/07/2018 ANY, JJAN N Ot 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 10/07/2018 ANYSHIREEN N Ot E53.8 DEFICIENCY OF OTHER SPECIFIED B GROUP 10/07/2018 ANYJJAN N Ot I12.9 HYPERTENSIVE CHRONIC KIDNEY DISEASE W ST 10/07/2018 ANYSHIREEN N Ot I25.10 ATHSCL HEART DISEASE OF [place] CORONARY 10/07/2018 ANYSHIREEN N Ot I48.91 UNSPECIFIED ATRIAL FIBRILLATION 10/07/2018 ANYSHIREEN N Ot K31.819 ANGIODYSPLASIA OF STOMACH AND DUODENUM W 10/07/2018 ANYSHIREEN N Ot K74.60 UNSPECIFIED CIRRHOSIS OF LIVER 10/07/2018 ANYSHIREEN N Ot N18.3 CHRONIC KIDNEY DISEASE, STAGE 3 (MODERAT 10/07/2018 ANYSHIREEN BALDWIN N Ot Z79.899 OTHER DETENTION (CURRENT) DRUG THERAPY 10/07/2018 SHIREEN AGARWAL N Ot D50.0 IRON DEFICIENCY ANEMIA SECONDARY TO BLOO 10/07/2018 SHIREEN AGARWAL N Ot E03.9 HYPOTHYROIDISM, UNSPECIFIED 10/07/2018 ANYSHIREEN N Ot 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 10/07/2018 ANYSHIREEN N Ot E53.8 DEFICIENCY OF OTHER SPECIFIED B GROUP 10/07/2018 ANYSHIREEN N Ot I12.9 HYPERTENSIVE CHRONIC KIDNEY DISEASE W ST 10/07/2018 ANYSHIREEN N Ot I25.10 ATHSCL HEART DISEASE OF [place] CORONARY 10/07/2018 ANYSHIREEN N Ot I48.91 UNSPECIFIED ATRIAL FIBRILLATION 10/07/2018 ANYSHIREEN N Ot K31.819 ANGIODYSPLASIA OF STOMACH AND DUODENUM W 10/07/2018 ANYSHIREEN N Ot K74.60 UNSPECIFIED CIRRHOSIS OF LIVER 10/07/2018 ANY, BOBAN N Ot N18.3 CHRONIC KIDNEY DISEASE, STAGE 3 (MODERAT 10/07/2018 ANY, BOBAN N Ot 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 10/08/2018 KRUNAL KHOURY PHD, LULA Clement Ot E03.9 HYPOTHYROIDISM, UNSPECIFIED 10/08/2018 KRUNAL KHOURY PHD, LULA Clement Ot I50.32 CHRONIC DIASTOLIC (CONGESTIVE) HEART KATY 10/08/2018 JJ AGARWALAN N Ot D50.0 IRON DEFICIENCY ANEMIA SECONDARY TO BLOO 10/08/2018 ANY, BOBAN N Ot E03.9 HYPOTHYROIDISM, UNSPECIFIED 10/08/2018 ANY, BOBAN N Ot 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 10/08/2018 ANY, BOBAN N Ot E53.8 DEFICIENCY OF OTHER SPECIFIED B GROUP 10/08/2018 ANY, BOBAN N Ot I12.9 HYPERTENSIVE CHRONIC KIDNEY DISEASE W ST 10/08/2018 ANY, BOBAN N Ot I25.10 ATHSCL HEART DISEASE OF [place] CORONARY 10/08/2018 ANY, BOBAN N Ot I48.91 UNSPECIFIED ATRIAL FIBRILLATION 10/08/2018 ANY BOBAN N Ot K31.819 ANGIODYSPLASIA OF STOMACH AND DUODENUM W 10/08/2018 ANY, BOBAN N Ot K74.60 UNSPECIFIED CIRRHOSIS OF LIVER 10/08/2018 ANY BOBAN N Ot N18.3 CHRONIC KIDNEY DISEASE, STAGE 3 (MODERAT 10/08/2018 ANY BOBAN N Ot Z79.899 OTHER DETENTION (CURRENT) DRUG THERAPY 10/08/2018 ANYJJAN N Ot D50.0 IRON DEFICIENCY ANEMIA SECONDARY TO BLOO 10/08/2018 ANY, BOBAN N Ot E03.9 HYPOTHYROIDISM, UNSPECIFIED 10/08/2018 ANY, BOBAN N Ot 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 10/08/2018 ANY, BOBAN N Ot E53.8 DEFICIENCY OF OTHER SPECIFIED B GROUP 10/08/2018 ANY, BOBAN N Ot I12.9 HYPERTENSIVE CHRONIC KIDNEY DISEASE W ST 10/08/2018 ANY, BOBAN N Ot I25.10 ATHSCL HEART DISEASE OF [place] CORONARY 10/08/2018 ANY, BOBAN N Ot I48.91 UNSPECIFIED ATRIAL FIBRILLATION 10/08/2018 SHIREEN AGARWAL N Ot K31.819 ANGIODYSPLASIA OF STOMACH AND DUODENUM W 10/08/2018 ANYSHIREEN N Ot K74.60 UNSPECIFIED CIRRHOSIS OF LIVER 10/08/2018 SHIREEN AGARWAL N Ot N18.3 CHRONIC KIDNEY DISEASE, STAGE 3 (MODERAT 10/08/2018 JJ AGARWALONDINA N Ot Z79.899 OTHER DETENTION (CURRENT) DRUG THERAPY 10/08/2018 ANYSHIREEN N Ot D50.0 IRON DEFICIENCY ANEMIA SECONDARY TO BLOO 10/08/2018 ANY BOBAN N Ot E03.9 HYPOTHYROIDISM, UNSPECIFIED 10/08/2018 ANY, BOBAN N Ot 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 10/08/2018 ANYSHIREEN N Ot E53.8 DEFICIENCY OF OTHER SPECIFIED B GROUP 10/08/2018 ANYSHIREEN N Ot I12.9 HYPERTENSIVE CHRONIC KIDNEY DISEASE W ST 10/08/2018 ANYSHIREEN N Ot I25.10 ATHSCL HEART DISEASE OF [place] CORONARY 10/08/2018 ANYSHIREEN N Ot I48.91 UNSPECIFIED ATRIAL FIBRILLATION 10/08/2018 ANYSHIREEN N Ot K31.819 ANGIODYSPLASIA OF STOMACH AND DUODENUM W 10/08/2018 ANYJJONDINA N Ot K74.60 UNSPECIFIED CIRRHOSIS OF LIVER 10/08/2018 ANY BOBONDINA N Ot N18.3 CHRONIC KIDNEY DISEASE, STAGE 3 (MODERAT 10/08/2018 ANYSHIREEN N Ot Z79.899 OTHER DETENTION (CURRENT) DRUG THERAPY 10/14/2018 KRUNAL KHOURY PHD, LULA Clement Ot K31.819 ANGIODYSPLASIA OF STOMACH AND DUODENUM W 10/22/2018 ANYSHIREEN N Ot D50.0 IRON DEFICIENCY ANEMIA SECONDARY TO BLOO 10/22/2018 ANYSHIREEN N Ot E03.9 HYPOTHYROIDISM, UNSPECIFIED 10/22/2018 ANY BOBONDINA N Ot 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 10/22/2018 ANYSHIREEN N Ot E53.8 DEFICIENCY OF OTHER SPECIFIED B GROUP 10/22/2018 ANYSHIREEN N Ot I12.9 HYPERTENSIVE CHRONIC KIDNEY DISEASE W ST 10/22/2018 SHIREEN AGARWAL Ot I25.10 ATHSCL HEART DISEASE OF [place] CORONARY 10/22/2018 SHIREEN AGARWAL Ot I48.91 UNSPECIFIED ATRIAL FIBRILLATION 10/22/2018 SHIREEN AGARWAL Ot K31.819 ANGIODYSPLASIA OF STOMACH AND DUODENUM W 10/22/2018 SHIREEN AGARWAL Ot K74.60 UNSPECIFIED CIRRHOSIS OF LIVER 10/22/2018 SHIREEN AGARWAL Ot N18.3 CHRONIC KIDNEY DISEASE, STAGE 3 (MODERAT 10/22/2018 SHIREEN AGARWAL Ot Z79.899 OTHER DETENTION (CURRENT) DRUG THERAPY 10/25/2018 KRUNAL KHOURY PHD, LULA Clement Ot D50.0 IRON DEFICIENCY ANEMIA SECONDARY TO BLOO 10/25/2018 KRUNAL KHOURY PHD, LULA Clement Ot E03.9 HYPOTHYROIDISM, UNSPECIFIED 10/25/2018 KRUNAL KHOURY PHD, LULA Clement Ot 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 10/25/2018 KRUNAL KHOURY PHD, LULA Clement Ot E53.8 DEFICIENCY OF OTHER SPECIFIED B GROUP 10/25/2018 KRUNAL KHOURY PHD, LULA Clement Ot I12.9 HYPERTENSIVE CHRONIC KIDNEY DISEASE W ST 10/25/2018 KRUNAL KHOURY PHD, LULA Clement Ot I25.10 ATHSCL HEART DISEASE OF [place] CORONARY 10/25/2018 KRUNAL KHOURY PHD, LULA Clement Ot I48.91 UNSPECIFIED ATRIAL FIBRILLATION 10/25/2018 KRUNAL KHOURY PHD, LULA Clement Ot K31.819 ANGIODYSPLASIA OF STOMACH AND DUODENUM W 10/25/2018 KRUNAL KHOUYR PHD, LULA Clement Ot K74.60 UNSPECIFIED CIRRHOSIS OF LIVER 10/25/2018 KRUNAL KHOURY PHD, LULA Clement Ot N18.3 CHRONIC KIDNEY DISEASE, STAGE 3 (MODERAT 10/25/2018 KRUNAL KHOURY PHD, LULA Clement Ot 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 11/02/2018 KRUNAL KHOURY PHD, LULA Clement Ot K31.819 ANGIODYSPLASIA OF STOMACH AND DUODENUM W 11/06/2018 RADHA DO MICHELLE Ot A41.9 SEPSIS, UNSPECIFIED ORGANISM 11/06/2018 RADHA DO MICHELLE Ot D50.0 IRON DEFICIENCY ANEMIA SECONDARY TO BLOO 11/06/2018 MICHELLE GARCIA DO Ot D61.81 8 OTHER PANCYTOPENIA 11/06/2018 EMILIANO GARCIA DOI Ot E03.9 HYPOTHYROIDISM, UNSPECIFIED 11/06/2018 EMILIANO GARCIA DOI Ot E11.65 TYPE 2 DIABETES MELLITUS WITH HYPERGLYCE 11/06/2018 EMILIANO GARCIA DOI Ot E78.00 PURE HYPERCHOLESTEROLEMIA, UNSPECIFIED 11/06/2018 EMILIANO GARCIA DOI Ot E86.0 DEHYDRATION 11/06/2018 MICHELLE GARCIA DO Ot 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 11/06/2018 EMILIANO GARCIA DOI Ot I21.A1 MYOCARDIAL INFARCTION TYPE 2 11/06/2018 EMILIANO GARCIA DOI Ot I25.10 ATHSCL HEART DISEASE OF [place] CORONARY 11/06/2018 MICHELLE GARCIA DO Ot I25.2 OLD MYOCARDIAL INFARCTION 11/06/2018 EMILIANO GARCIA DOI Ot I48.0 PAROXYSMAL ATRIAL FIBRILLATION 11/06/2018 EMILIANO GARCIA DOI Ot I50.32 CHRONIC DIASTOLIC (CONGESTIVE) HEART KATY 11/06/2018 RADHA WOOD MICHELLE Ot 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 11/06/2018 RADHA WOOD MICHELLE Ot I87.2 VENOUS INSUFFICIENCY (CHRONIC) (PERIPHER 11/06/2018 EMILIANO GARCIA DOI Ot J18.9 PNEUMONIA, UNSPECIFIED ORGANISM 11/06/2018 RADHA WOOD MICHELLE Ot J90 PLEURAL EFFUSION, NOT ELSEWHERE CLASSIFI 11/06/2018 EMILIANO GARCIA DOI Ot J96.01 ACUTE RESPIRATORY FAILURE WITH HYPOXIA 11/06/2018 MICHELLE GARCIA DO Ot K31.81 1 ANGIODYSPLASIA OF STOMACH AND DUODENUM W 11/06/2018 RADHA WOOD MICHELLE Ot K74.60 UNSPECIFIED CIRRHOSIS OF LIVER 11/06/2018 RADHA WOOD MICHELLE Ot K76.6 PORTAL HYPERTENSION 11/06/2018 RADHA WOOD MICHELLE Ot N17.9 ACUTE KIDNEY FAILURE, UNSPECIFIED 11/06/2018 RADHA WOOD MICHELLE Ot N18.9 CHRONIC KIDNEY DISEASE, UNSPECIFIED 11/06/2018 RADHA WOOD MICHELLE Ot N30.00 ACUTE CYSTITIS WITHOUT HEMATURIA 11/06/2018 EMILIANO GARCIA DOI Ot R41.0 DISORIENTATION, UNSPECIFIED 11/06/2018 MICHELLE GARCIA DO Ot R63.4 ABNORMAL WEIGHT LOSS 11/06/2018 MICHELLE GARCIA DO Ot Z79.4 DETENTION (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 OF INSULIN 11/06/2018 MICHELLE GARCIA DO Ot Z95.1 PRESENCE OF AORTOCORONARY BYPASS GRAFT 11/06/2018 MICHELLE GARCIA DO Ot Z95.5 PRESENCE OF CORONARY ANGIOPLASTY IMPLANT 11/06/2018 MICHELLE GARCIA DO Ot Z99.81 DEPENDENCE ON SUPPLEMENTAL OXYGEN 11/06/2018 EMILIANO GARCIA DOI Ot A41.9 SEPSIS, UNSPECIFIED ORGANISM 11/06/2018 EMILIANO GARCIA DOI Ot B37.3 CANDIDIASIS OF VULVA AND [place]AG[place] 11/06/2018 EMILIANO GARCIA DOI Ot D50.0 IRON DEFICIENCY ANEMIA SECONDARY TO BLOO 11/06/2018 MICHELLE GARCIA DO Ot D61.81 8 OTHER PANCYTOPENIA 11/06/2018 EMILIANO GARCIA DOI Ot E03.9 HYPOTHYROIDISM, UNSPECIFIED 11/06/2018 EMILIANO GARCIA DOI Ot E11.65 TYPE 2 DIABETES MELLITUS WITH HYPERGLYCE 11/06/2018 EMILAINO GARCIA DOI Ot E78.00 PURE HYPERCHOLESTEROLEMIA, UNSPECIFIED 11/06/2018 EMILIANO GARCIA DOI Ot E86.0 DEHYDRATION 11/06/2018 EMILIANO GARCIA DOI Ot G93.41 METABOLIC ENCEPHALOPATHY 11/06/2018 MICHELLE GARCIA DO Ot 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 11/06/2018 EMILIANO GARCIA DOI Ot I21.A1 MYOCARDIAL INFARCTION TYPE 2 11/06/2018 MICHELLE GARCIA DO Ot I25.10 ATHSCL HEART DISEASE OF [place] CORONARY 11/06/2018 MICHELLE GARCIA DO Ot I25.2 OLD MYOCARDIAL INFARCTION 11/06/2018 EMILIANO GARCIA DOI Ot I48.0 PAROXYSMAL ATRIAL FIBRILLATION 11/06/2018 EMILIANO GARCIA DOI Ot I50.32 CHRONIC DIASTOLIC (CONGESTIVE) HEART KATY 11/06/2018 EMILIANO GARCIA DOI Ot 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 11/06/2018 EMILIANO GARCIA DOI Ot I87.2 VENOUS INSUFFICIENCY (CHRONIC) (PERIPHER 11/06/2018 EMILIANO GARCIA DOI Ot J18.1 LOBAR PNEUMONIA, UNSPECIFIED ORGANISM 11/06/2018 MICHELLE GARCIA DO Ot J18.9 PNEUMONIA, [...] R65.21 SEVERE SEPSIS WITH SEPTIC SHOCK 11/06/2018 MICHELLE GARCIA DO Ot Z79.4 DRAY DRIVER (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 OF INSULIN 11/06/2018 MICHELLE GARCIA DO Ot Z95.1 PRESENCE OF AORTOCORONARY BYPASS GRAFT 11/06/2018 MICHELLE GARCIA DO Ot Z95.5 PRESENCE OF CORONARY ANGIOPLASTY IMPLANT 11/06/2018 MICHELLE GARCIA DO Ot Z99.81 DEPENDENCE ON SUPPLEMENTAL OXYGEN 11/10/2018 SHIREEN AGARWAL Ot D50.0 IRON DEFICIENCY ANEMIA SECONDARY TO BLOO 11/10/2018 SHIREEN AGARWAL Ot E03.9 HYPOTHYROIDISM, UNSPECIFIED 11/10/2018 SHIREEN AGARWAL Ot 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 11/10/2018 SHIREEN AGARWAL Ot E53.8 DEFICIENCY OF OTHER SPECIFIED B GROUP 11/10/2018 SHIREEN AGARWAL Ot I12.9 HYPERTENSIVE CHRONIC KIDNEY DISEASE W ST 11/10/2018 SHIREEN AGARWAL Ot I25.10 ATHSCL HEART DISEASE OF [place] CORONARY 11/10/2018 SHIREEN AGARWAL Ot I48.91 UNSPECIFIED ATRIAL FIBRILLATION 11/10/2018 SHIREEN AGARWAL Ot K31.819 ANGIODYSPLASIA OF STOMACH AND DUODENUM W 11/10/2018 SHIREEN AGARWAL N Ot K74.60 UNSPECIFIED CIRRHOSIS OF LIVER 11/10/2018 SHIREEN AGARWAL Ot N18.3 CHRONIC KIDNEY DISEASE, STAGE 3 (MODERAT 11/10/2018 SHIREEN AGARWAL N Ot Z79.899 OTHER DETENTION (CURRENT) DRUG THERAPY 11/16/2018 SHIREEN AGARWAL Ot D50.0 IRON DEFICIENCY ANEMIA SECONDARY TO BLOO 11/16/2018 SHIREEN AGARWAL Solange Ot E03.9 HYPOTHYROIDISM, UNSPECIFIED 11/16/2018 SHIREEN AGARWAL N Ot 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 11/16/2018 SHIREEN AGARWAL Solange Ot E53.8 DEFICIENCY OF OTHER SPECIFIED B GROUP 11/16/2018 SHIREEN AGARWAL Solange Ot I12.9 HYPERTENSIVE CHRONIC KIDNEY DISEASE W ST 11/16/2018 SHIREEN AGARWAL Solange Ot I25.10 ATHSCL HEART DISEASE OF [place] CORONARY 11/16/2018 SHIREEN AGARWAL Solange Ot I48.91 UNSPECIFIED ATRIAL FIBRILLATION 11/16/2018 SHIREEN AGARWAL Ot K31.819 ANGIODYSPLASIA OF STOMACH AND DUODENUM W 11/16/2018 SHIREEN AGARWAL N Ot K74.60 UNSPECIFIED CIRRHOSIS OF LIVER 11/16/2018 SHIREEN AGARWAL Ot N18.3 CHRONIC KIDNEY DISEASE, STAGE 3 (MODERAT 11/16/2018 SHIREEN AGARWAL Ot 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 11/24/2018 KRUNAL KHOURY PHD, LULA Clement Ot D50.0 IRON DEFICIENCY ANEMIA SECONDARY TO BLOO 11/24/2018 KRUNAL KHOURY PHD, LULA Clement Ot E03.9 HYPOTHYROIDISM, UNSPECIFIED 11/24/2018 KRUNAL KHOURY PHD, LULA Clement Ot 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 11/24/2018 KRUNAL KHOURY PHD, LULA Clement Ot E53.8 DEFICIENCY OF OTHER SPECIFIED B GROUP 11/24/2018 KRUNAL KHOURY PHD, LULA Clement Ot I12.9 HYPERTENSIVE CHRONIC KIDNEY DISEASE W ST 11/24/2018 KRUNAL KHOURY PHD, LULA Clement Ot I25.10 ATHSCL HEART DISEASE OF [place] CORONARY 11/24/2018 KRUNAL KHOURY PHD, LULA Clement Ot I48.91 UNSPECIFIED ATRIAL FIBRILLATION 11/24/2018 KRUNAL KHOURY PHD, LULA Clement Ot K31.819 ANGIODYSPLASIA OF STOMACH AND DUODENUM W 11/24/2018 KRUNAL KHOURY PHD, LULA Clement Ot K74.60 UNSPECIFIED CIRRHOSIS OF LIVER 11/24/2018 KRUNAL KHOURY PHD, LULA Clement Ot N18.3 CHRONIC KIDNEY DISEASE, STAGE 3 (MODERAT 11/24/2018 KRUNAL KHOURY PHD, LULA Clement Ot 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 11/29/2018 SHIREEN AGARWAL N Ot D50.0 IRON DEFICIENCY ANEMIA SECONDARY TO BLOO 11/29/2018 SHIREEN AGARWAL N Ot E03.9 HYPOTHYROIDISM, UNSPECIFIED 11/29/2018 SHIREEN AGARWAL N Ot 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 11/29/2018 SHIREEN AGARWAL N Ot E53.8 DEFICIENCY OF OTHER SPECIFIED B GROUP 11/29/2018 SHIREEN AGARWAL N Ot I12.9 HYPERTENSIVE CHRONIC KIDNEY DISEASE W ST 11/29/2018 SHIREEN AGARWAL N Ot I25.10 ATHSCL HEART DISEASE OF [place] CORONARY 11/29/2018 SHIREEN AGARWAL N Ot I48.91 UNSPECIFIED ATRIAL FIBRILLATION 11/29/2018 SHIREEN AGARWAL N Ot K31.819 ANGIODYSPLASIA OF STOMACH AND DUODENUM W 11/29/2018 SHIREEN AGARWAL N Ot K74.60 UNSPECIFIED CIRRHOSIS OF LIVER 11/29/2018 SHIREEN AGARWAL N Ot N18.3 CHRONIC KIDNEY DISEASE, STAGE 3 (MODERAT 11/29/2018 SHIREEN AGARWAL N Ot Z79.899 OTHER DETENTION (CURRENT) DRUG THERAPY 12/13/2018 KRUNAL KHOURY PHD, LULA Clement Ot D50.0 IRON DEFICIENCY ANEMIA SECONDARY TO BLOO 12/13/2018 KRUNAL KHOURY PHD, LULA Clement Ot E03.9 HYPOTHYROIDISM, UNSPECIFIED 12/13/2018 KRUNAL KHOURY PHD, LULA Clement Ot 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 12/13/2018 KRUNAL KHOURY PHD, LULA Clement Ot E53.8 DEFICIENCY OF OTHER SPECIFIED B GROUP 12/13/2018 KRUNAL KHOURY PHD, LULA Clement Ot I12.9 HYPERTENSIVE CHRONIC KIDNEY DISEASE W ST 12/13/2018 KRUNAL KHOURY PHD, LULA Clement Ot I25.10 ATHSCL HEART DISEASE OF [place] CORONARY 12/13/2018 KRUNAL KHOURY PHD, LULA Clement Ot I48.91 UNSPECIFIED ATRIAL FIBRILLATION 12/13/2018 KRUNAL KHOURY PHD, LULA Clement Ot K31.819 ANGIODYSPLASIA OF STOMACH AND DUODENUM W 12/13/2018 KRUNAL KHOURY PHD, LULA Clement Ot K74.60 UNSPECIFIED CIRRHOSIS OF LIVER 12/13/2018 KRUNAL KHOURY PHD, LULA Clement Ot N18.3 CHRONIC KIDNEY DISEASE, STAGE 3 (MODERAT 12/13/2018 KRUNAL KHOURY PHD, LULA Clement Ot Z79.899 OTHER DETENTION (CURRENT) DRUG THERAPY 12/28/2018 EMILIANO GARCIA DOI Ot D64.9 ANEMIA, UNSPECIFIED 12/28/2018 RADHA WOOD MICHELLE Ot E11.01 TYPE 2 DIABETES MELLITUS WITH HYPEROSMOL 12/28/2018 RADHA WOOD MICHELLE Ot E11.65 TYPE 2 DIABETES MELLITUS WITH HYPERGLYCE 12/28/2018 RADHA WOOD MICHELLE Ot E78.5 HYPERLIPIDEMIA, UNSPECIFIED 12/28/2018 RADHA WOOD MICHELLE Ot E86.0 DEHYDRATION 12/28/2018 RADHA WOOD MICHELLE Ot E87.1 HYPO-OSMOLALITY AND HYPONATREMIA 12/28/2018 RADHA WOOD MICHELLE Ot E87.2 ACIDOSIS 12/28/2018 RADHA WOOD MICHELLE Ot F41.9 ANXIETY DISORDER, UNSPECIFIED 12/28/2018 RADHA WOOD MICHELLE Ot G47.30 SLEEP APNEA, UNSPECIFIED 12/28/2018 RADHA WOOD MICHELLE Ot 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 12/28/2018 RADHA WOOD MICHELLE Ot I25.10 ATHSCL HEART DISEASE OF [place] CORONARY 12/28/2018 RADHA WOOD MICHELLE Ot I25.2 OLD MYOCARDIAL INFARCTION 12/28/2018 RADHA WOOD MICHELLE Ot I48.0 PAROXYSMAL ATRIAL FIBRILLATION 12/28/2018 RADHA WOOD MICHELLE Ot I50.9 HEART FAILURE, UNSPECIFIED 12/28/2018 RADHA WOOD MICHELLE Ot I95.9 HYPOTENSION, UNSPECIFIED 12/28/2018 RADHA WOOD MICHELLE Ot K21.9 GASTRO-ESOPHAGEAL REFLUX DISEASE WITHOUT 12/28/2018 MICHELLE GARCIA DO Ot K31.81 9 ANGIODYSPLASIA OF STOMACH AND DUODENUM W 12/28/2018 MICHELLE GARCIA DO Ot N17.9 ACUTE KIDNEY FAILURE, UNSPECIFIED 12/28/2018 MICHELLE GARCIA DO Ot N18.9 CHRONIC KIDNEY DISEASE, UNSPECIFIED 12/28/2018 GARCIAMICHELLE STAHL DO Ot N30.00 ACUTE CYSTITIS WITHOUT HEMATURIA 12/28/2018 MICHELLE GARCIA DO Ot Z79.4 DETENTION (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 OF INSULIN 12/28/2018 MICHELLE GARCIA DO Ot Z87.89 1 PERSONAL HISTORY OF NICOTINE DEPENDENCE 12/28/2018 MICHELLE GARCIA DO Ot Z95.1 PRESENCE OF AORTOCORONARY BYPASS GRAFT 12/28/2018 MICHELLE GARCIA DO Ot Z95.5 PRESENCE OF CORONARY ANGIOPLASTY IMPLANT 12/28/2018 MICHELLE GARCIA DO Ot Z99.81 DEPENDENCE ON SUPPLEMENTAL OXYGEN 01/05/2019 SHIREEN AGARWAL Ot D50.0 IRON DEFICIENCY ANEMIA SECONDARY TO BLOO 01/05/2019 SHIREEN AGARWAL Ot E03.9 HYPOTHYROIDISM, UNSPECIFIED 01/05/2019 SHIREEN AGARWAL Ot 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 01/05/2019 SHIREEN AGARWAL Ot E53.8 DEFICIENCY OF OTHER SPECIFIED B GROUP 01/05/2019 SHIREEN AGARWAL Ot I12.9 HYPERTENSIVE CHRONIC KIDNEY DISEASE W ST 01/05/2019 SHIREEN AGARWAL Ot I25.10 ATHSCL HEART DISEASE OF [place] CORONARY 01/05/2019 SHIREEN AGARWAL Ot I48.91 UNSPECIFIED ATRIAL FIBRILLATION 01/05/2019 SHIREEN AGARWAL Ot K31.819 ANGIODYSPLASIA OF STOMACH AND DUODENUM W 01/05/2019 SHIREEN AGARWAL Ot K74.60 UNSPECIFIED CIRRHOSIS OF LIVER 01/05/2019 SHIREEN AGARWAL Ot N18.3 CHRONIC KIDNEY DISEASE, STAGE 3 (MODERAT 01/05/2019 SHIREEN AGARWAL Ot Z79.899 OTHER DETENTION (CURRENT) DRUG THERAPY 01/06/2019 SHIREEN AGARWAL Ot D50.0 IRON DEFICIENCY ANEMIA SECONDARY TO BLOO 01/06/2019 SHIREEN AGARWAL Ot E03.9 HYPOTHYROIDISM, UNSPECIFIED 01/06/2019 ANY, BOBAN N Ot 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 01/06/2019 SHIREEN AGARWAL N Ot E53.8 DEFICIENCY OF OTHER SPECIFIED B GROUP 01/06/2019 SHIREEN AGARWAL N Ot I12.9 HYPERTENSIVE CHRONIC KIDNEY DISEASE W ST 01/06/2019 SHIREEN AGARWAL N Ot I25.10 ATHSCL HEART DISEASE OF [place] CORONARY 01/06/2019 SHIREEN AGARWAL N Ot I48.91 UNSPECIFIED ATRIAL FIBRILLATION 01/06/2019 SHIREEN AGARWAL N Ot K31.819 ANGIODYSPLASIA OF STOMACH AND DUODENUM W 01/06/2019 SHIREEN AGARWAL N Ot K74.60 UNSPECIFIED CIRRHOSIS OF LIVER 01/06/2019 SHIREEN AGARWAL N Ot N18.3 CHRONIC KIDNEY DISEASE, STAGE 3 (MODERAT 01/06/2019 SHIREEN AGARWAL N Ot Z79.899 OTHER DETENTION (CURRENT) DRUG THERAPY 01/10/2019 MACIEL WELCH APRN Ot M79.89 OTHER SPECIFIED SOFT TISSUE DISORDERS 01/10/2019 SHIREEN AGARWAL N Ot D64.9 ANEMIA, UNSPECIFIED 01/10/2019 SHIREEN AGARWAL N Ot E11.9 TYPE 2 DIABETES MELLITUS WITHOUT COMPLIC 01/10/2019 SHIREEN AGARWAL N Ot K74.60 UNSPECIFIED CIRRHOSIS OF LIVER 01/10/2019 SHIREEN AGARWAL N Ot N18.9 CHRONIC KIDNEY DISEASE, UNSPECIFIED 01/10/2019 BRIAN KHOURY, JAMES Champion Ot D64.9 ANEMIA, UNSPECIFIED 01/10/2019 BRIAN KHOURY, JAMES Champion Ot E11.2 2 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 01/10/2019 BRIAN KHOURY, JAMES R Ot K74.6 0 UNSPECIFIED CIRRHOSIS OF LIVER 01/10/2019 BRIAN KHOURY, JAMES Champion Ot N18.9 CHRONIC KIDNEY DISEASE, UNSPECIFIED 01/10/2019 BRIAN KHOURY, JAMES Champion Ot E03.9 HYPOTHYROIDISM, UNSPECIFIED 01/10/2019 KRUNAL KHOURY PHD, LULA Clement Ot I50.32 CHRONIC DIASTOLIC (CONGESTIVE) HEART KATY 01/10/2019 KRUNAL KHOURY PHD, LULA Clement Ot E03.9 HYPOTHYROIDISM, UNSPECIFIED 01/10/2019 KRUNAL KHOURY PHD, LULA S Ot I50.32 [...] 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 01/10/2019 KRUNAL KHOURY PHD, LULA Clement Ot E53.8 DEFICIENCY OF OTHER SPECIFIED B GROUP 01/10/2019 KRUNAL KHOURY PHD, LULA Clement Ot I12.9 HYPERTENSIVE CHRONIC KIDNEY DISEASE W ST 01/10/2019 KRUNAL KHOURY PHD, LULA Clement Ot I25.10 ATHSCL HEART DISEASE OF [place] CORONARY 01/10/2019 KRUNAL KHOURY PHD, LULA Clement Ot I48.91 UNSPECIFIED ATRIAL FIBRILLATION 01/10/2019 KRUNAL KHOURY PHD, LULA Clement Ot K31.819 ANGIODYSPLASIA OF STOMACH AND DUODENUM W 01/10/2019 KRUNAL KHOURY PHD, LULA Clement Ot K74.60 UNSPECIFIED CIRRHOSIS OF LIVER 01/10/2019 KRUNAL KHOURY PHD, LULA Clement Ot N18.3 CHRONIC KIDNEY DISEASE, STAGE 3 (MODERAT 01/10/2019 KRUNAL KHOURY PHD, LULA Clement Ot Z79.899 OTHER DETENTION (CURRENT) DRUG THERAPY 01/10/2019 SHIREEN AGARWAL Ot D50.0 IRON DEFICIENCY ANEMIA SECONDARY TO BLOO 01/10/2019 SHIREEN AGARWAL Ot E03.9 HYPOTHYROIDISM, UNSPECIFIED 01/10/2019 SHIREEN AGARWAL Ot 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 01/10/2019 SHIREEN AGARWAL Ot E53.8 DEFICIENCY OF OTHER SPECIFIED B GROUP 01/10/2019 SHIREEN AGARWAL Ot I12.9 HYPERTENSIVE CHRONIC KIDNEY DISEASE W ST 01/10/2019 SHIREEN AGARWAL Ot I25.10 ATHSCL HEART DISEASE OF [place] CORONARY 01/10/2019 SHIREEN AGARWAL Ot I48.91 UNSPECIFIED ATRIAL FIBRILLATION 01/10/2019 SHIREEN AGARWAL Ot K31.819 ANGIODYSPLASIA OF STOMACH AND DUODENUM W 01/10/2019 SHIREEN AGARWAL Solange Ot K74.60 UNSPECIFIED CIRRHOSIS OF LIVER 01/10/2019 SHIREEN AGARWAL Ot N18.3 CHRONIC KIDNEY DISEASE, STAGE 3 (MODERAT 01/10/2019 SHIREEN AGARWAL Ot Z79.899 OTHER DETENTION (CURRENT) DRUG THERAPY 01/16/2019 KRUNAL KHOURY PHD, LULA Clement Ot D50.0 IRON DEFICIENCY ANEMIA SECONDARY TO BLOO 01/16/2019 KRUNAL KHOURY PHD, LULA Clement Ot E03.9 HYPOTHYROIDISM, UNSPECIFIED 01/16/2019 KRUNAL KHOURY PHD, LULA Clement Ot 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 01/16/2019 KRUNAL KHOURY PHD, LULA Clement Ot E53.8 DEFICIENCY OF OTHER SPECIFIED B GROUP 01/16/2019 KRUNAL KHOURY PHD, LULA Clement Ot I12.9 HYPERTENSIVE CHRONIC KIDNEY DISEASE W ST 01/16/2019 KRUNAL KHOURY PHD, LULA Clement Ot I25.10 ATHSCL HEART DISEASE OF [place] CORONARY 01/16/2019 KRUNAL KHOURY PHD, LULA Clement Ot I48.91 UNSPECIFIED ATRIAL FIBRILLATION 01/16/2019 KRUNAL KHOURY PHD, LULA Clement Ot K31.819 ANGIODYSPLASIA OF STOMACH AND DUODENUM W 01/16/2019 KRUNAL KHOURY PHD, LULA Clement Ot K74.60 UNSPECIFIED CIRRHOSIS OF LIVER 01/16/2019 KRUNAL KHOURY PHD, LULA Clement Ot N18.3 CHRONIC KIDNEY DISEASE, STAGE 3 (MODERAT 01/16/2019 KRUNAL KHOURY PHD, LULA Clement Ot 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 01/23/2019 KRUNAL KHOURY PHD, LULA Clement Ot D50.0 IRON DEFICIENCY ANEMIA SECONDARY TO BLOO 01/23/2019 KRUNAL KHOURY PHD, LULA Clement Ot E03.9 HYPOTHYROIDISM, UNSPECIFIED 01/23/2019 KRUNAL KHOURY PHD, LULA Clement Ot 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 01/23/2019 KRUNAL KHOURY PHD, LULA Clement Ot E53.8 DEFICIENCY OF OTHER SPECIFIED B GROUP 01/23/2019 KRUNAL KHOURY PHD, LULA Clement Ot I12.9 HYPERTENSIVE CHRONIC KIDNEY DISEASE W ST 01/23/2019 KRUNAL KHOURY PHD, LULA Clement Ot I25.10 ATHSCL HEART DISEASE OF [place] CORONARY 01/23/2019 KRUNAL KHOURY PHD, LULA Clement Ot I48.91 UNSPECIFIED ATRIAL FIBRILLATION 01/23/2019 KRUNAL KHOURY PHD, LULA Clement Ot K31.819 ANGIODYSPLASIA OF STOMACH AND DUODENUM W 01/23/2019 KRUNAL KHOURY PHD, LULA Clement Ot K74.60 UNSPECIFIED CIRRHOSIS OF LIVER 01/23/2019 KRUNAL KHOURY PHD, LULA Clement Ot N18.3 CHRONIC KIDNEY DISEASE, STAGE 3 (MODERAT 01/23/2019 KRUNAL KHOURY PHD, LULA Clement Ot 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 02/23/2019 SHIREEN AGARWAL Ot D50.0 IRON DEFICIENCY ANEMIA SECONDARY TO BLOO 02/23/2019 SHIREEN AGARWAL Ot E03.9 HYPOTHYROIDISM, UNSPECIFIED 02/23/2019 SHIREEN AGARWAL Ot 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 02/23/2019 SHIREEN AGARWAL Ot E53.8 DEFICIENCY OF OTHER SPECIFIED B GROUP 02/23/2019 SHIREEN AGARWAL Ot I12.9 HYPERTENSIVE CHRONIC KIDNEY DISEASE W ST 02/23/2019 SHIREEN AGARWAL Ot I25.10 ATHSCL HEART DISEASE OF [place] CORONARY 02/23/2019 SHIREEN AGARWAL Ot I48.91 UNSPECIFIED ATRIAL FIBRILLATION 02/23/2019 SHIREEN AGARWAL Ot K31.819 ANGIODYSPLASIA OF STOMACH AND DUODENUM W 02/23/2019 SHIREEN AGARWAL Ot K74.60 UNSPECIFIED CIRRHOSIS OF LIVER 02/23/2019 SHIREEN AGARWAL Ot N18.3 CHRONIC KIDNEY DISEASE, STAGE 3 (MODERAT 02/23/2019 SHIREEN AGARWAL Ot Z79.899 OTHER DETENTION (CURRENT) DRUG THERAPY 02/24/2019 KRUNAL KHOURY PHD, LULA Clement Ot D50.0 IRON DEFICIENCY ANEMIA SECONDARY TO BLOO 02/24/2019 KRUNAL KHOURY PHD, LULA Clement Ot E03.9 HYPOTHYROIDISM, UNSPECIFIED 02/24/2019 KRUNAL KHOURY PHD, LULA Clement Ot 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 02/24/2019 KRUNAL KHOURY PHD, LULA Clement Ot E53.8 DEFICIENCY OF OTHER SPECIFIED B GROUP 02/24/2019 KRUNAL KHOURY PHD, LULA Clement Ot I12.9 HYPERTENSIVE CHRONIC KIDNEY DISEASE W ST 02/24/2019 KRUNAL KHOURY PHD, LULA Clement Ot I25.10 ATHSCL HEART DISEASE OF [place] CORONARY 02/24/2019 KRUNAL KHOURY PHD, LULA Clement Ot I48.91 UNSPECIFIED ATRIAL FIBRILLATION 02/24/2019 KRUNAL KHOURY PHD, LULA Clement Ot K31.819 ANGIODYSPLASIA OF STOMACH AND DUODENUM W 02/24/2019 KRUNAL KHOURY PHD, LULA Clement Ot K74.60 UNSPECIFIED CIRRHOSIS OF LIVER 02/24/2019 KRUNAL KHOURY PHD, LULA Clement Ot N18.3 CHRONIC KIDNEY DISEASE, STAGE 3 (MODERAT 02/24/2019 KRUNAL KHOURY PHD, LULA Clement Ot 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 03/11/2019 SHIREEN AGARWAL Ot D50.0 IRON DEFICIENCY ANEMIA SECONDARY TO BLOO 03/11/2019 SHIREEN AGARWAL Ot E03.9 HYPOTHYROIDISM, UNSPECIFIED 03/11/2019 SHIREEN AGARWAL Ot 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 03/11/2019 SHIREEN AGARWAL Ot E53.8 DEFICIENCY OF OTHER SPECIFIED B GROUP 03/11/2019 SHIREEN AGARWAL Ot I12.9 HYPERTENSIVE CHRONIC KIDNEY DISEASE W ST 03/11/2019 SHIREEN AGARWAL Ot I25.10 ATHSCL HEART DISEASE OF [place] CORONARY 03/11/2019 SHIREEN AGARWAL Ot I48.91 UNSPECIFIED ATRIAL FIBRILLATION 03/11/2019 SHIREEN AGARWAL Ot K31.819 ANGIODYSPLASIA OF STOMACH AND DUODENUM W 03/11/2019 SHIREEN AGARWAL Ot K74.60 UNSPECIFIED CIRRHOSIS OF LIVER 03/11/2019 SHIREEN AGARWAL Ot N18.3 CHRONIC KIDNEY DISEASE, STAGE 3 (MODERAT 03/11/2019 SHIREEN AGARWAL Ot R82.998 OTHER ABNORMAL FINDINGS IN URINE 03/11/2019 SHIREEN AGARWAL Ot Z79.899 OTHER DETENTION (CURRENT) DRUG THERAPY 03/28/2019 KRUNAL KHOURY PHD, LULA Clement Ot D50.0 IRON DEFICIENCY ANEMIA SECONDARY TO BLOO 03/28/2019 KRUNAL KHOURY PHD, LULA Clement Ot E03.9 HYPOTHYROIDISM, UNSPECIFIED 03/28/2019 KRUNAL KHOURY PHD, LULA Clement Ot 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 03/28/2019 KRUNAL KHOURY PHD, LULA Clement Ot E53.8 DEFICIENCY OF OTHER SPECIFIED B GROUP 03/28/2019 KRUNAL KHOURY PHD, LULA Clement Ot I12.9 HYPERTENSIVE CHRONIC KIDNEY DISEASE W ST 03/28/2019 KRUNAL KHOURY PHD, LULA Clement Ot I25.10 ATHSCL HEART DISEASE OF [place] CORONARY 03/28/2019 KRUNAL KHOURY PHD, LULA Clement Ot I48.91 UNSPECIFIED ATRIAL FIBRILLATION 03/28/2019 KRUNAL KHOURY PHD, LULA Clement Ot K31.819 ANGIODYSPLASIA OF STOMACH AND DUODENUM W 03/28/2019 KRUNAL KHOURY PHD, LULA Clement Ot K74.60 UNSPECIFIED CIRRHOSIS OF LIVER 03/28/2019 KRUNAL KHOURY PHD, LULA Clement Ot N18.3 CHRONIC KIDNEY DISEASE, STAGE 3 (MODERAT 03/28/2019 KRUNAL KHOURY PHD, LULA Clement Ot 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 03/28/2019 SHIREEN AGARWAL Ot D50.0 IRON DEFICIENCY ANEMIA SECONDARY TO BLOO 03/28/2019 SHIREEN AGARWAL Ot E03.9 HYPOTHYROIDISM, UNSPECIFIED 03/28/2019 SHIREEN AGARWAL N Ot 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 03/28/2019 SHIREEN AGARWAL Ot E53.8 DEFICIENCY OF OTHER SPECIFIED B GROUP 03/28/2019 SHIREEN AGARWAL N Ot I12.9 HYPERTENSIVE CHRONIC KIDNEY DISEASE W ST 03/28/2019 SHIREEN AGARWAL Ot I25.10 ATHSCL HEART DISEASE OF [place] CORONARY 03/28/2019 SHIREEN AGARWAL Ot I48.91 UNSPECIFIED ATRIAL FIBRILLATION 03/28/2019 SHIREEN AGARWAL Ot K31.819 ANGIODYSPLASIA OF STOMACH AND DUODENUM W 03/28/2019 SHIREEN AGARWAL N Ot K74.60 UNSPECIFIED CIRRHOSIS OF LIVER 03/28/2019 SHIREEN AGARWAL Ot N18.3 CHRONIC KIDNEY DISEASE, STAGE 3 (MODERAT 03/28/2019 SHIREEN AGARWAL Ot R82.998 OTHER ABNORMAL FINDINGS IN URINE 03/28/2019 SHIREEN AGARWAL Ot Z79.899 OTHER DETENTION (CURRENT) DRUG THERAPY 04/10/2019 SHIREEN AGARWAL Ot D50.0 IRON DEFICIENCY ANEMIA SECONDARY TO BLOO 04/10/2019 SHIREEN AGARWAL N Ot E03.9 HYPOTHYROIDISM, UNSPECIFIED 04/10/2019 SHIREEN AGARWAL N Ot 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 04/10/2019 SHIREEN AGARWAL N Ot E53.8 DEFICIENCY OF OTHER SPECIFIED B GROUP 04/10/2019 SHIREEN AGARWAL N Ot I12.9 HYPERTENSIVE CHRONIC KIDNEY DISEASE W ST 04/10/2019 SHIREEN AGARWAL N Ot I25.10 ATHSCL HEART DISEASE OF [place] CORONARY 04/10/2019 SHIREEN AGARWAL N Ot I48.91 UNSPECIFIED ATRIAL FIBRILLATION 04/10/2019 SHIREEN AGARWAL Solange Ot K31.819 ANGIODYSPLASIA OF STOMACH AND DUODENUM W 04/10/2019 SHIREEN AGARWAL N Ot K74.60 UNSPECIFIED CIRRHOSIS OF LIVER 04/10/2019 SHIREEN AGARWAL N Ot N18.3 CHRONIC KIDNEY DISEASE, STAGE 3 (MODERAT 04/10/2019 SHIREEN AGARWAL N Ot R82.998 OTHER ABNORMAL FINDINGS IN URINE 04/10/2019 SHIREEN AGARWAL N Ot 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 04/11/2019 KRUNAL KHOURY PHD, LULA Clement Ot D50.0 IRON DEFICIENCY ANEMIA SECONDARY TO BLOO 04/11/2019 KRUNAL KHOURY PHD, LULA Clement Ot E03.9 HYPOTHYROIDISM, UNSPECIFIED 04/11/2019 KRUNAL KHOURY PHD, LULA Clement Ot 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 04/11/2019 KRUNAL KHOURY PHD, LULA Clement Ot E53.8 DEFICIENCY OF OTHER SPECIFIED B GROUP 04/11/2019 KRUNAL KHOURY PHD, LULA Clement Ot I12.9 HYPERTENSIVE CHRONIC KIDNEY DISEASE W ST 04/11/2019 KRUNAL KHOURY PHD, LULA Clement Ot I25.10 ATHSCL HEART DISEASE OF [place] CORONARY 04/11/2019 KRUNAL KHOURY PHD, LULA Clement Ot I48.91 UNSPECIFIED ATRIAL FIBRILLATION 04/11/2019 KRUNAL KHOURY PHD, LULA Clement Ot K31.819 ANGIODYSPLASIA OF STOMACH AND DUODENUM W 04/11/2019 KRUNAL KHOURY PHD, LULA Clement Ot K74.60 UNSPECIFIED CIRRHOSIS OF LIVER 04/11/2019 KRUNAL KHOURY PHD, LULA Clement Ot N18.3 CHRONIC KIDNEY DISEASE, STAGE 3 (MODERAT 04/11/2019 KRUNAL KHOURY PHD, LULA Clement Ot 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 04/11/2019 JJ AGARWALAN N Ot D50.0 IRON DEFICIENCY ANEMIA SECONDARY TO BLOO 04/11/2019 JJ AGARWALAN N Ot E03.9 HYPOTHYROIDISM, UNSPECIFIED 04/11/2019 SHIREEN AGARWAL N Ot 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 04/11/2019 SHIREEN AGARWAL N Ot E53.8 DEFICIENCY OF OTHER SPECIFIED B GROUP 04/11/2019 SHIREEN AGARWAL N Ot I12.9 HYPERTENSIVE CHRONIC KIDNEY DISEASE W ST 04/11/2019 SHIREEN AGARWAL N Ot I25.10 ATHSCL HEART DISEASE OF [place] CORONARY 04/11/2019 ANYJJAN N Ot I48.91 UNSPECIFIED ATRIAL FIBRILLATION 04/11/2019 ANYJJAN N Ot K31.819 ANGIODYSPLASIA OF STOMACH AND DUODENUM W 04/11/2019 ANYJJAN N Ot K74.60 UNSPECIFIED CIRRHOSIS OF LIVER 04/11/2019 ANYJJAN N Ot N18.3 CHRONIC KIDNEY DISEASE, STAGE 3 (MODERAT 04/11/2019 JJ AGARWALAN N Ot R82.998 OTHER ABNORMAL FINDINGS IN URINE 04/11/2019 ANY BOBAN N Ot Z79.899 OTHER DETENTION (CURRENT) DRUG THERAPY 04/12/2019 JAEMS TORRES MD Ot D64.9 ANEMIA, UNSPECIFIED 04/12/2019 JAMES TORRES MD Ot E11.2 2 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 04/12/2019 JAMES TORRES MD Ot E78.5 HYPERLIPIDEMIA, UNSPECIFIED 04/12/2019 JAMES TORRES MD Ot F41.9 ANXIETY DISORDER, UNSPECIFIED 04/12/2019 JAMES TORRES MD Ot G89.2 9 OTHER CHRONIC PAIN 04/12/2019 JAMES TORRES MD, Ot I12.9 HYPERTENSIVE CHRONIC KIDNEY DISEASE W ST 04/12/2019 JAMES TORRES MD, Ot I25.1 0 ATHSCL HEART DISEASE OF [place] CORONARY 04/12/2019 JAMES TORRES MD, Ot I48.9 1 UNSPECIFIED ATRIAL FIBRILLATION 04/12/2019 JAMES TORRES MD, Ot I95.9 HYPOTENSION, UNSPECIFIED 04/12/2019 JAMES TORRES MD, Ot J30.9 ALLERGIC RHINITIS, UNSPECIFIED 04/12/2019 JAMES TORRES MD, Ot K21.9 GASTRO-ESOPHAGEAL REFLUX DISEASE WITHOUT 04/12/2019 JAMES TORRES MD, Ot K31.8 19 ANGIODYSPLASIA OF STOMACH AND DUODENUM W 04/12/2019 JAMES TORRES MD, Ot K74.6 0 UNSPECIFIED CIRRHOSIS OF LIVER 04/12/2019 JAMES TORRES MD, Ot M19.9 0 UNSPECIFIED OSTEOARTHRITIS, UNSPECIFIED 04/12/2019 JAMES TORRES MD, Ot M54.9 DORSALGIA, UNSPECIFIED 04/12/2019 JAMES TORRES MD, Ot N18.9 CHRONIC KIDNEY DISEASE, UNSPECIFIED 04/12/2019 JAMES TORRES MD, Ot N30.0 1 ACUTE CYSTITIS WITH HEMATURIA 04/12/2019 JAMES TORRES MD, Ot Z79.4 DRAY DRIVER (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 OF INSULIN 04/12/2019 JAMES TORRES [...] Z88.8 ALLERGY STATUS TO OT DRUG/MEDS/BIOL SUB 04/12/2019 JAMES TORRES MD, Ot D64.9 ANEMIA, UNSPECIFIED 04/12/2019 JAMES TORRES MD, Ot E11.2 2 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 04/12/2019 JAMES TORRES MD Ot E78.5 HYPERLIPIDEMIA, UNSPECIFIED 04/12/2019 JAMES TORRES MD, Ot F41.9 ANXIETY DISORDER, UNSPECIFIED 04/12/2019 JAMES TORRES MD Ot G89.2 9 OTHER CHRONIC PAIN 04/12/2019 JAMES TORRES MD Ot I12.9 HYPERTENSIVE CHRONIC KIDNEY DISEASE W ST 04/12/2019 JAMES TORRES MD, Ot I25.1 0 ATHSCL HEART DISEASE OF [place] CORONARY 04/12/2019 JAMES TORRES MD Ot I48.9 [...] ACUTE CYSTITIS WITH HEMATURIA 04/12/2019 JAMES TORRES MD Ot Z79.4 DETENTION (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 OF INSULIN 04/12/2019 JAMES TORRES MD, Ot Z80.3 FAMILY HISTORY OF MALIGNANT NEOPLASM OF 04/12/2019 JAMES TORERS MD, Ot Z82.4 9 FAMILY HX OF ISCHEM HEART DIS AND OTH DI 04/12/2019 JAMES TORRES MD, Ot Z86.7 9 PERSONAL HISTORY OF OTHER DISEASES OF TH 04/12/2019 JAMES TORRES MD, Ot Z87.8 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 04/12/2019 JAMES TORRES MD, Ot Z88.1 ALLERGY STATUS TO OTHER ANTIBIOTIC AGENT 04/12/2019 BRIAN KHOURY, JAMES Champion Ot Z88.2 ALLERGY STATUS TO SULFONAMIDES STATUS 04/12/2019 BRIAN KHOURY, JAMES Champion Ot Z88.8 ALLERGY STATUS TO OTH DRUG/MEDS/BIOL SUB 04/24/2019 KRUNAL KHOURY PHD, LULA Clement Ot D50.0 IRON DEFICIENCY ANEMIA SECONDARY TO BLOO 04/24/2019 KRUNAL KHOURY PHD, LULA Clement Ot E03.9 HYPOTHYROIDISM, UNSPECIFIED 04/24/2019 KRUNAL KHOURY PHD, LULA Clement Ot 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 04/24/2019 KRUNAL KHOURY PHD, LULA Clement Ot E53.8 DEFICIENCY OF OTHER SPECIFIED B GROUP 04/24/2019 KRUNAL KHOURY PHD, LULA Clement Ot I12.9 HYPERTENSIVE CHRONIC KIDNEY DISEASE W ST 04/24/2019 KRUNAL KHOURY PHD, LULA Clement Ot I25.10 ATHSCL HEART DISEASE OF [place] CORONARY 04/24/2019 KRUNAL KHOURY PHD, LULA Clement Ot I48.91 UNSPECIFIED ATRIAL FIBRILLATION 04/24/2019 KRUNAL KHOURY PHD, LULA Clement Ot K31.819 ANGIODYSPLASIA OF STOMACH AND DUODENUM W 04/24/2019 KRUNAL KHOURY PHD, LULA Clement Ot K74.60 UNSPECIFIED CIRRHOSIS OF LIVER 04/24/2019 KRUNAL KHOURY PHD, LULA Clement Ot N18.3 CHRONIC KIDNEY DISEASE, STAGE 3 (MODERAT 04/24/2019 KRUNAL KHOURY PHD, LULA Clement Ot 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 04/25/2019 SHIREEN AGARWAL Ot D50.9 IRON DEFICIENCY ANEMIA, UNSPECIFIED 04/25/2019 SHIREEN AGARWAL Ot D63.1 ANEMIA IN CHRONIC KIDNEY DISEASE 04/25/2019 SHIREEN AGARWAL Ot E03.9 HYPOTHYROIDISM, UNSPECIFIED 04/25/2019 SHIREEN AGARWAL N Ot 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 04/25/2019 SHIREEN AGARWAL N Ot E53.8 DEFICIENCY OF OTHER SPECIFIED B GROUP 04/25/2019 SHIREEN AGARWAL N Ot E66.9 OBESITY, UNSPECIFIED 04/25/2019 SHIREEN AGARWAL Ot E78.5 HYPERLIPIDEMIA, UNSPECIFIED 04/25/2019 SHIREEN AGARWAL N Ot 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 04/25/2019 ANYSHIREEN Ot I25.10 ATHSCL HEART DISEASE OF [place] CORONARY 04/25/2019 ANY SHIREEN Narvaez Ot I47.1 SUPRAVENTRICULAR TACHYCARDIA 04/25/2019 ANY JJONDINA N Ot I48.91 UNSPECIFIED ATRIAL FIBRILLATION 04/25/2019 ANYSHIREEN Ot I50.30 UNSPECIFIED DIASTOLIC (CONGESTIVE) HEART 04/25/2019 ANY SHIREEN N Ot K29.51 UNSPECIFIED CHRONIC GASTRITIS WITH BLEED 04/25/2019 ANYSHIREEN N Ot K31.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 04/25/2019 ANYSHIREEN N Ot K44.9 DIAPHRAGMATIC HERNIA WITHOUT OBSTRUCTION 04/25/2019 ANYSHIREEN N Ot K63.5 POLYP OF COLON 04/25/2019 ANYSHIREEN N Ot K64.9 UNSPECIFIED HEMORRHOIDS 04/25/2019 ANYSHIREEN N Ot K74.60 UNSPECIFIED CIRRHOSIS OF LIVER 04/25/2019 ANYSHIREEN N Ot M19.90 UNSPECIFIED OSTEOARTHRITIS, UNSPECIFIED 04/25/2019 JJ AGARWALONDINA N Ot N18.3 CHRONIC KIDNEY DISEASE, STAGE 3 (MODERAT 04/25/2019 JJ AGARWALONDINA N Ot Z79.899 OTHER DETENTION (CURRENT) DRUG THERAPY 04/25/2019 SHIREEN AGARWAL N Ot Z80.0 FAMILY HISTORY OF MALIGNANT NEOPLASM OF 05/02/2019 MACIEL WELCH APRN Ot M79.89 OTHER SPECIFIED SOFT TISSUE DISORDERS 05/02/2019 ANYSHIREEN N Ot D64.9 ANEMIA, UNSPECIFIED 05/02/2019 ANYSHIREEN N Ot E11.9 TYPE 2 DIABETES MELLITUS WITHOUT COMPLIC 05/02/2019 ANYSHIREEN N Ot K74.60 UNSPECIFIED CIRRHOSIS OF LIVER 05/02/2019 ANYSHIREEN N Ot N18.9 CHRONIC KIDNEY DISEASE, UNSPECIFIED 05/02/2019 BRIAN KHOURY, JAMES Champion Ot D64.9 ANEMIA, UNSPECIFIED 05/02/2019 JAMES TORRES MD, Ot E11.2 2 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 05/02/2019 BRIAN KHOURY, JAMES Champion Ot K74.6 0 UNSPECIFIED CIRRHOSIS OF LIVER 05/02/2019 BRIAN KHOURY, JAMES Champion Ot N18.9 CHRONIC KIDNEY DISEASE, UNSPECIFIED 05/02/2019 BRIAN KHOURY, JAMES Champion Ot E03.9 HYPOTHYROIDISM, UNSPECIFIED 05/02/2019 KRUNAL KHOURY [...] Ot E03.9 HYPOTHYROIDISM, UNSPECIFIED 05/02/2019 SHIREEN AGARWAL Ot 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 05/02/2019 SHIREEN AGARWAL Ot E53.8 DEFICIENCY OF OTHER SPECIFIED B GROUP 05/02/2019 SHIREEN AGARWAL Ot E66.9 OBESITY, UNSPECIFIED 05/02/2019 SHIREEN AGARWAL Ot E78.5 HYPERLIPIDEMIA, UNSPECIFIED 05/02/2019 SHIREEN AGARWAL Ot 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 05/02/2019 SHIREEN AGARWAL Ot I25.10 ATHSCL HEART DISEASE OF [place] CORONARY 05/02/2019 SHIREEN AGARWAL Ot I47.1 SUPRAVENTRICULAR TACHYCARDIA 05/02/2019 SHIREEN AGARWAL Ot I48.91 UNSPECIFIED ATRIAL FIBRILLATION 05/02/2019 SHIREEN AGARWAL Ot I50.30 UNSPECIFIED DIASTOLIC (CONGESTIVE) HEART 05/02/2019 SHIREEN AGARWAL Ot K29.51 UNSPECIFIED CHRONIC GASTRITIS WITH BLEED 05/02/2019 SHIREEN AGARWAL Ot K31.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 05/02/2019 SHIREEN AGARWAL Solange Ot K44.9 DIAPHRAGMATIC HERNIA WITHOUT OBSTRUCTION 05/02/2019 SHIREEN AGARWAL Ot K63.5 POLYP OF COLON 05/02/2019 SHIREEN AGARWAL Solange Ot K64.9 UNSPECIFIED HEMORRHOIDS 05/02/2019 SHIREEN AGARWAL Solange Ot K74.60 UNSPECIFIED CIRRHOSIS OF LIVER 05/02/2019 SHIREEN AGARWAL Solange Ot M19.90 UNSPECIFIED OSTEOARTHRITIS, UNSPECIFIED 05/02/2019 SHIREEN AGARWAL Solange Ot N18.3 CHRONIC KIDNEY DISEASE, STAGE 3 (MODERAT 05/02/2019 SHIREEN AGARWAL Ot Z68.33 BODY MASS INDEX (BMI) 33.0-33.9, ADULT 05/02/2019 SHIREEN AGARWAL Solange Ot Z79.899 OTHER DETENTION (CURRENT) DRUG THERAPY 05/02/2019 SHIREEN AGARWAL Ot Z80.0 FAMILY HISTORY OF MALIGNANT NEOPLASM OF 05/02/2019 KRUNAL KHOURY PHD, LULA Clement Ot D50.0 IRON DEFICIENCY ANEMIA SECONDARY TO BLOO 05/02/2019 KRUNAL KHOURY PHD, LULA Clement Ot E03.9 HYPOTHYROIDISM, UNSPECIFIED 05/02/2019 KRUNAL KHOURY PHD, LULA Clement Ot 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 05/02/2019 KRUNAL KHOURY PHD, LULA Clement Ot E53.8 DEFICIENCY OF OTHER SPECIFIED B GROUP 05/02/2019 KRUNAL KHOURY PHD, LULA Clement Ot I12.9 HYPERTENSIVE CHRONIC KIDNEY DISEASE W ST 05/02/2019 KRUNAL KHOURY PHD, LULA Clement Ot I25.10 ATHSCL HEART DISEASE OF [place] CORONARY 05/02/2019 KRUNAL KHOURY PHD, LULA Clement Ot I48.91 UNSPECIFIED ATRIAL FIBRILLATION 05/02/2019 KRUNAL KHOURY PHD, LULA Clement Ot K31.819 ANGIODYSPLASIA OF STOMACH AND DUODENUM W 05/02/2019 KRUNAL KHOURY PHD, LULA Clement Ot K74.60 UNSPECIFIED CIRRHOSIS OF LIVER 05/02/2019 KRUNAL KHOURY PHD, LULA Clement Ot N18.3 CHRONIC KIDNEY DISEASE, STAGE 3 (MODERAT 05/02/2019 KRUNAL KHOURY PHD, LULA Clement Ot Z79.899 OTHER DETENTION (CURRENT) DRUG THERAPY 05/07/2019 MALLORIE FATIMA APRN Ot D64 .9 ANEMIA, UNSPECIFIED 05/07/2019 MALLORIE FATIMA APRN Ot 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 05/07/2019 MALLORIE FATIMA APRN Ot E78.00 PURE HYPERCHOLESTEROLEMIA, UNSPECIFIED 05/07/2019 MALLORIE FATIMA APRN Ot F41 .9 ANXIETY DISORDER, UNSPECIFIED 05/07/2019 MALLORIE FATIMA APRN Ot I12 .9 HYPERTENSIVE CHRONIC KIDNEY DISEASE W ST 05/07/2019 MALLORIE FATIMA APRN Ot I25.10 ATHSCL HEART DISEASE OF [place] CORONARY 05/07/2019 MALLORIE FATIMA APRN Ot I25 [...] 05/07/2019 MALLORIE FATIMA APRN Ot Z79 .4 DRAY DRIVER (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 OF INSULIN 05/07/2019 MALLORIE FATIMA [...] 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 05/11/2019 MALLORIE FATIMA APRN Ot E78.00 PURE HYPERCHOLESTEROLEMIA, UNSPECIFIED 05/11/2019 MALLORIE FATIMA APRN Ot F41 .9 ANXIETY DISORDER, UNSPECIFIED 05/11/2019 MALLORIE FATIMA APRN Ot I12 .9 HYPERTENSIVE CHRONIC KIDNEY DISEASE W ST 05/11/2019 MALLORIE FATIMA APRN Ot I25.10 ATHSCL HEART DISEASE OF [place] CORONARY 05/11/2019 MALLORIE FATIMA APRN Ot I25 [...] 05/11/2019 MALLORIE FATIMA APRN Ot Z79 .4 DRAY DRIVER (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 OF INSULIN 05/11/2019 MALLORIE FATIMA [...] APRN Ot Z88 .8 ALLERGY STATUS TO OT DRUG/MEDS/BIOL SUB 05/11/2019 MALLORIE FATIMA APRN Ot Z90.89 ACQUIRED ABSENCE OF OTHER ORGANS 05/11/2019 MALLORIE FATIMA 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 Ot Z95 .1 PRESENCE OF AORTOCORONARY BYPASS GRAFT 05/11/2019 MALLORIE FATIMA 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 Ot Z95 .5 PRESENCE OF CORONARY ANGIOPLASTY IMPLANT 05/11/2019 MALLORIE FATIMA 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 Ot Z98.51 TUBAL LIGATION STATUS 05/16/2019 NANCY MARY ANN Joe 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 Ot E03.9 HYPOTHYROIDISM, UNSPECIFIED 05/20/2019 KRUNAL KHOURY PHD, LULA Clement Ot I50.32 CHRONIC DIASTOLIC (CONGESTIVE) HEART KATY 05/30/2019 SHIREEN AGARWAL N Ot D50.9 IRON DEFICIENCY ANEMIA, UNSPECIFIED 05/30/2019 SHIREEN AGARWAL N Ot D63.1 ANEMIA IN CHRONIC KIDNEY DISEASE 05/30/2019 SHIREEN AGARWAL N Ot E03.9 HYPOTHYROIDISM, UNSPECIFIED 05/30/2019 SHIREEN AGARWAL N Ot 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 05/30/2019 SHIREEN AGARWAL N Ot E53.8 DEFICIENCY OF OTHER SPECIFIED B GROUP 05/30/2019 SHIREEN AGARWAL N Ot E66.9 OBESITY, UNSPECIFIED 05/30/2019 SHIREEN AGARWAL N Ot E78.5 HYPERLIPIDEMIA, UNSPECIFIED 05/30/2019 SHIREEN AGARWAL N Ot 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 05/30/2019 SHIREEN AGARWAL N Ot I25.10 ATHSCL HEART DISEASE OF [place] CORONARY 05/30/2019 SHIREEN AGARWAL N Ot I47.1 SUPRAVENTRICULAR TACHYCARDIA 05/30/2019 SHIREEN AGARWAL N Ot I48.91 UNSPECIFIED ATRIAL FIBRILLATION 05/30/2019 SHIREEN AGARWAL N Ot I50.30 UNSPECIFIED DIASTOLIC (CONGESTIVE) HEART 05/30/2019 SHIREEN AGARWAL N Ot K29.51 UNSPECIFIED CHRONIC GASTRITIS WITH BLEED 05/30/2019 SHIREEN AGARWAL N Ot K31.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 05/30/2019 SHIREEN AGARWAL N Ot K44.9 DIAPHRAGMATIC HERNIA WITHOUT OBSTRUCTION 05/30/2019 SHIREEN AGARWAL N Ot K63.5 POLYP OF COLON 05/30/2019 SHIREEN AGARWAL N Ot K64.9 UNSPECIFIED HEMORRHOIDS 05/30/2019 SHIREEN AGARWAL N Ot K74.60 UNSPECIFIED CIRRHOSIS OF LIVER 05/30/2019 SHIREEN AGARWAL Solange Ot M19.90 UNSPECIFIED OSTEOARTHRITIS, UNSPECIFIED 05/30/2019 SHIREEN AGARWAL Solange Ot N18.3 CHRONIC KIDNEY DISEASE, STAGE 3 (MODERAT 05/30/2019 SHIREEN AGARWAL Solange Capone Z68.33 BODY MASS INDEX (BMI) 33.0-33.9, ADULT 05/30/2019 SHIREEN AGARWAL Solange Ot Z79.899 OTHER DETENTION (CURRENT) DRUG THERAPY 05/30/2019 SHIREEN AGARWAL Solange Ot Z80.0 FAMILY HISTORY OF MALIGNANT NEOPLASM OF 06/01/2019 RACHELE JEFFERSONP Ot J98.11 ATELECTASIS 06/01/2019 RACHELE JEFFERSONP Ot J98.4 OTHER DISORDERS OF LUNG 06/01/2019 RACHELE JEFFERSON Ot Z95.9 PRESENCE OF CARDIAC AND VASCULAR IMPLANT 06/06/2019 TOMASA CARMONA MD, Ot D61 .9 APLASTIC ANEMIA, UNSPECIFIED 06/06/2019 TOMASA CARMONA MD, Ot E03 .9 HYPOTHYROIDISM, UNSPECIFIED 06/06/2019 TOMASA CARMONA MD, Ot E11 .9 TYPE 2 DIABETES MELLITUS WITHOUT COMPLIC 06/06/2019 TOMASA CARMONA MD, Ot E78.00 PURE HYPERCHOLESTEROLEMIA, UNSPECIFIED 06/06/2019 TOMASA CARMONA MD, Ot F41 .9 ANXIETY DISORDER, UNSPECIFIED 06/06/2019 TOMASA CARMONA MD, Ot G47.30 SLEEP APNEA, UNSPECIFIED 06/06/2019 TOMASA CARMONA MD, Ot G89.29 OTHER CHRONIC PAIN 06/06/2019 TOMASA CARMONA MD, Ot 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 06/06/2019 TOMASA CARMONA MD, Ot I25.10 ATHSCL HEART DISEASE OF [place] CORONARY 06/06/2019 TOMASA CARMONA MD, Ot I25 [...] 06/06/2019 TOMASA CARMONA MD, Ot Z79 .4 DETENTION (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 OF INSULIN 06/06/2019 TOMASA CARMONA MD, Ot Z87.8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 06/06/2019 TOMASA CARMONA MD, Ot Z95 .1 PRESENCE OF AORTOCORONARY BYPASS GRAFT 06/06/2019 TOMASA CARMONA MD Ot Z95 .5 PRESENCE OF CORONARY ANGIOPLASTY IMPLANT 06/06/2019 TOMASA CARMONA MD, Ot Z98.51 TUBAL LIGATION STATUS 06/10/2019 KRUNAL KHOURY PHD, LULA Clement Ot I50.32 CHRONIC DIASTOLIC (CONGESTIVE) HEART KATY 06/10/2019 MARY ANN CRUZ APRN Ot E03.9 HYPOTHYROIDISM, UNSPECIFIED 06/21/2019 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 Ot J98.11 ATELECTASIS 06/21/2019 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 Ot J98.4 OTHER DISORDERS OF LUNG 06/21/2019 RACHELE JEFFERSONP Ot Z95.9 PRESENCE OF CARDIAC AND VASCULAR IMPLANT 06/27/2019 SHIREEN AGARWAL Ot D50.9 IRON DEFICIENCY ANEMIA, UNSPECIFIED 06/27/2019 SHIREEN AGARWAL Ot D63.1 ANEMIA IN CHRONIC KIDNEY DISEASE 06/27/2019 SHIREEN AGARWAL Ot E03.9 HYPOTHYROIDISM, UNSPECIFIED 06/27/2019 SHIREEN AGARWAL Ot 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 06/27/2019 SHIREEN AGARWAL Ot E53.8 DEFICIENCY OF OTHER SPECIFIED B GROUP 06/27/2019 SHIREEN AGARWAL Ot E66.9 OBESITY, UNSPECIFIED 06/27/2019 SHIREEN AGARWAL Ot E78.5 HYPERLIPIDEMIA, UNSPECIFIED 06/27/2019 SHIREEN AGARWAL Ot 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 06/27/2019 SHIREEN AGARWAL Ot I25.10 ATHSCL HEART DISEASE OF [place] CORONARY 06/27/2019 SHIREEN AGARWAL Ot I47.1 SUPRAVENTRICULAR [...] CHRONIC KIDNEY DISEASE, STAGE 3 (MODERAT 06/27/2019 HSIREEN AGARWAL Ot Z68.33 BODY MASS INDEX (BMI) 33.0-33.9, ADULT 06/27/2019 SHIREEN AGARWAL Ot Z79.899 OTHER DETENTION (CURRENT) DRUG THERAPY 06/27/2019 SHIREEN AGARWAL Ot Z80.0 FAMILY HISTORY OF MALIGNANT NEOPLASM OF 07/11/2019 SHIREEN AGARWAL Ot D50.9 IRON DEFICIENCY ANEMIA, UNSPECIFIED 07/11/2019 SHIREEN AGARWAL Ot D63.1 ANEMIA IN CHRONIC KIDNEY DISEASE 07/11/2019 SHIREEN AGARWAL Ot E03.9 HYPOTHYROIDISM, UNSPECIFIED 07/11/2019 SHIREEN AGARWAL Ot 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 07/11/2019 SHIREEN AGARWAL Ot E53.8 DEFICIENCY OF OTHER SPECIFIED B GROUP 07/11/2019 SHIREEN AGARWAL Ot E66.9 OBESITY, UNSPECIFIED 07/11/2019 SHIREEN AGARWAL Ot E78.5 HYPERLIPIDEMIA, UNSPECIFIED 07/11/2019 SHIREEN AGARWAL Ot 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 07/11/2019 SHIREEN AGARWAL Ot I25.10 ATHSCL HEART DISEASE OF [place] CORONARY 07/11/2019 SHIREEN AGARWAL Ot I47.1 SUPRAVENTRICULAR [...] ADULT 07/11/2019 SHIREEN AGARWAL Ot 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 07/11/2019 SHIREEN AGARWAL Ot Z80.0 FAMILY HISTORY OF MALIGNANT NEOPLASM OF 07/11/2019 SHIREEN AGARWAL Ot D50.9 IRON DEFICIENCY ANEMIA, UNSPECIFIED 07/11/2019 SHIREEN AGARWAL Ot D63.1 ANEMIA IN CHRONIC KIDNEY DISEASE 07/11/2019 SHIREEN AGARWAL Ot E03.9 HYPOTHYROIDISM, UNSPECIFIED 07/11/2019 SHIREEN AGARWAL Ot 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 07/11/2019 SHIREEN AGARWAL Ot E53.8 DEFICIENCY OF OTHER SPECIFIED B GROUP 07/11/2019 SHIREEN AGARWAL Ot E66.9 OBESITY, UNSPECIFIED 07/11/2019 SHIREEN AGARWAL Ot E78.5 HYPERLIPIDEMIA, UNSPECIFIED 07/11/2019 SHIREEN AGARWAL Ot 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 07/11/2019 SHIREEN AGARWAL Ot I25.10 ATHSCL HEART DISEASE OF [place] CORONARY 07/11/2019 SHIREEN AGARWAL Ot I47.1 SUPRAVENTRICULAR [...] ADULT 07/11/2019 SHIREEN AGARWAL Ot Z79.899 OTHER DETENTION (CURRENT) DRUG THERAPY 07/11/2019 SHIREEN AGARWAL Ot Z80.0 FAMILY HISTORY OF MALIGNANT NEOPLASM OF 07/17/2019 SHIREEN AGARWAL Ot D50.9 IRON DEFICIENCY ANEMIA, UNSPECIFIED 07/17/2019 SHIREEN AGARWAL Ot D63.1 ANEMIA IN CHRONIC KIDNEY DISEASE 07/17/2019 SHIREEN AGARWAL Ot E03.9 HYPOTHYROIDISM, UNSPECIFIED 07/17/2019 SHIREEN AGARWAL Ot 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 07/17/2019 SHIREEN AGARWAL Ot E53.8 DEFICIENCY OF OTHER SPECIFIED B GROUP 07/17/2019 SHIREEN AGARWAL Ot E66.9 OBESITY, UNSPECIFIED 07/17/2019 SHIREEN AGARWAL Ot E78.5 HYPERLIPIDEMIA, UNSPECIFIED 07/17/2019 SHIREEN AGARWAL Ot 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 07/17/2019 SHIREEN AGARWAL Ot I25.10 ATHSCL HEART DISEASE OF [place] CORONARY 07/17/2019 SHIREEN AGARWAL Ot I47.1 SUPRAVENTRICULAR [...] INDEX (BMI) 33.0-33.9, ADULT 07/17/2019 SHIREEN AGARWAL Ot 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 07/17/2019 SHIREEN AGARWAL Ot Z80.0 FAMILY HISTORY OF MALIGNANT NEOPLASM OF 07/19/2019 BRIAN KHOURY, JAMES Champion Ot Z12.3 1 ENCNTR SCREEN MAMMOGRAM FOR MALIGNANT NE 07/28/2019 RADHA WOOD MICHELLE Ot D50.0 IRON DEFICIENCY ANEMIA SECONDARY TO BLOO 07/28/2019 RADHA WOOD MICHELLE Ot E03.9 HYPOTHYROIDISM, UNSPECIFIED 07/28/2019 GARCIA [...] MICHELLE Ot I25.10 ATHSCL HEART DISEASE OF [place] CORONARY 07/28/2019 GARCIA DO, MICHELLE Ot I25.2 OLD MYOCARDIAL INFARCTION 07/28/2019 GARCIA DO, MICHELLE Ot I48.0 PAROXYSMAL ATRIAL FIBRILLATION 07/28/2019 GARCIA DO, MICHELLE Ot J18.9 PNEUMONIA, UNSPECIFIED ORGANISM 07/28/2019 GARCIA DO, MICHELLE Ot J30.2 OTHER SEASONAL ALLERGIC RHINITIS 07/28/2019 GARCIA DO, MICHELLE Ot J98.11 ATELECTASIS 07/28/2019 GARCIA DO, MICHELLE Ot J98.4 OTHER DISORDERS OF LUNG 07/28/2019 GARCIA DO, MICHELLE Ot K21.9 GASTRO-ESOPHAGEAL REFLUX DISEASE WITHOUT 07/28/2019 GARCIA DO, MICHELLE Ot K31.81 1 ANGIODYSPLASIA OF STOMACH AND DUODENUM W 07/28/2019 GARCIA DO, MICHELLE Ot K74.60 UNSPECIFIED CIRRHOSIS OF LIVER 07/28/2019 GARCIA DO, MICHELLE Ot K76.6 PORTAL HYPERTENSION 07/28/2019 [...] SHOCK 07/28/2019 GARCIA DO, MICHELLE Ot Z79.4 DRAY DRIVER (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 OF INSULIN 07/28/2019 RADHA WOODMICHELLE Ot Z87.89 1 PERSONAL HISTORY OF NICOTINE DEPENDENCE 07/28/2019 GARCIAMICHELLE STAHL DO Ot Z95.1 PRESENCE OF AORTOCORONARY BYPASS GRAFT 07/28/2019 MICHELLE GARCIA DO Ot Z95.5 PRESENCE OF [...] 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 08/05/2019 SHIREEN AGARWAL Ot E53.8 DEFICIENCY OF OTHER SPECIFIED B GROUP 08/05/2019 SHIREEN AGARWAL Ot E66.9 OBESITY, UNSPECIFIED 08/05/2019 SHIREEN AGARWAL Ot E78.5 HYPERLIPIDEMIA, UNSPECIFIED 08/05/2019 SHIREEN AGARWAL Ot 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 08/05/2019 SHIREEN AGARWAL Ot I25.10 ATHSCL HEART DISEASE OF [place] CORONARY 08/05/2019 SHIREEN AGARWAL Ot I47.1 SUPRAVENTRICULAR TACHYCARDIA 08/05/2019 SHIREEN AGARWAL Ot I48.91 UNSPECIFIED ATRIAL FIBRILLATION 08/05/2019 SHIREEN AGARWAL Ot I50.30 UNSPECIFIED DIASTOLIC (CONGESTIVE) HEART 08/05/2019 SHIREEN AGARWAL Ot K29.51 UNSPECIFIED CHRONIC GASTRITIS WITH BLEED 08/05/2019 SHIREEN AGARWAL Ot K31.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 08/05/2019 SHIREEN AGARWAL Ot K44.9 DIAPHRAGMATIC HERNIA WITHOUT OBSTRUCTION 08/05/2019 SHIREEN AGARWAL Ot K63.5 POLYP OF COLON 08/05/2019 SHIREEN AGARWAL Ot K64.9 UNSPECIFIED HEMORRHOIDS 08/05/2019 SHIREEN AGARWAL Ot K74.60 UNSPECIFIED CIRRHOSIS OF LIVER 08/05/2019 SHIREEN AGARWAL Ot M19.90 UNSPECIFIED OSTEOARTHRITIS, UNSPECIFIED 08/05/2019 SHIREEN AGARWAL Ot N18.4 CHRONIC KIDNEY DISEASE, STAGE 4 (SEVERE) 08/05/2019 SHIREEN AGARWAL Ot Z68.33 BODY MASS INDEX (BMI) 33.0-33.9, ADULT 08/05/2019 SHIREEN AGARWAL Ot Z79.899 OTHER DETENTION (CURRENT) DRUG THERAPY 08/05/2019 SHIREEN AGARWAL Ot Z80.0 FAMILY HISTORY OF MALIGNANT NEOPLASM OF 08/09/2019 BRIAN KHOURY, JAMES Champion Ot Z12.3 1 ENCNTR SCREEN MAMMOGRAM FOR MALIGNANT NE 09/09/2019 KRUNAL KHOURY PHD, LULA Clement Ot I50.32 CHRONIC DIASTOLIC (CONGESTIVE) HEART KATY 09/17/2019 HARVEY KHOURY, NIA Ot Z53.9 PROCEDURE AND TREATMENT NOT CARRIED OUT, 09/21/2019 GARCIA DO, MICHELLE Ot D50.0 IRON DEFICIENCY ANEMIA SECONDARY TO BLOO 09/21/2019 GARCIA DO, MICHELLE Ot E03.9 HYPOTHYROIDISM, UNSPECIFIED 09/21/2019 GARCIA DO, MICHELLE Ot E11.65 TYPE 2 DIABETES MELLITUS WITH HYPERGLYCE 09/21/2019 GARCIA DO, MICHELLE Ot E78.00 PURE HYPERCHOLESTEROLEMIA, UNSPECIFIED 09/21/2019 GARCIA DO, MICHELLE Ot E87.6 HYPOKALEMIA 09/21/2019 GARCIA DO, MICHELLE Ot F41.9 ANXIETY DISORDER, UNSPECIFIED 09/21/2019 GARCIA DO, MICHELLE Ot G47.30 SLEEP APNEA, UNSPECIFIED 09/21/2019 GARCIA DO, MICHELLE Ot I12.9 HYPERTENSIVE CHRONIC KIDNEY DISEASE W ST 09/21/2019 GARCIA DO, MICHELLE Ot I25.10 ATHSCL HEART DISEASE OF [place] CORONARY 09/21/2019 GARCIA DO, MICHELLE Ot I25.2 [...] Ot N18.9 CHRONIC KIDNEY DISEASE, UNSPECIFIED 09/21/2019 [facility], MICHELLE Ot R07.9 CHEST PAIN, UNSPECIFIED 09/21/2019 [facility], MICHELLE Ot R57.1 HYPOVOLEMIC SHOCK 09/21/2019 GARCIA , MICHELLE Ot Z79.4 DRAY DRIVER (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 OF INSULIN 09/21/2019 GARCIA , MICHELLE Ot Z87.89 1 PERSONAL HISTORY OF NICOTINE DEPENDENCE 09/21/2019 GARCIA DO, MICHELLE Ot Z95.1 PRESENCE OF AORTOCORONARY BYPASS GRAFT 09/21/2019 GARCIA , MICHELLE Ot Z95.5 PRESENCE OF CORONARY ANGIOPLASTY IMPLANT 09/27/2019 KATERYNA KHOURY, MAUREEN Rashid Ot D64.9 ANEMIA, UNSPECIFIED 09/27/2019 MAUREEN AVENDAÑO MD Ot E11.9 TYPE 2 DIABETES MELLITUS WITHOUT COMPLIC 09/27/2019 MAUREEN AVENDAÑO MD Ot E78.00 PURE HYPERCHOLESTEROLEMIA, UNSPECIFIED 09/27/2019 MAUREEN AVENDAÑO MD Ot F41.9 ANXIETY DISORDER, UNSPECIFIED 09/27/2019 KATERYNA KHOURY, MAUREEN Rashid Ot G47.30 SLEEP APNEA, UNSPECIFIED 09/27/2019 KATERYNA KHOURY, MAUREEN Rashid Ot 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 09/27/2019 KATERYNA KHOURY, MAUREEN Rashid Ot I25.10 ATHSCL HEART DISEASE OF [place] CORONARY 09/27/2019 KATERYNA KHOURY, MAUREEN Rashid Ot I48.91 UNSPECIFIED ATRIAL FIBRILLATION 09/27/2019 KATERYNA KHOURY, MAUREEN Rashid Ot I49.1 ATRIAL PREMATURE DEPOLARIZATION 09/27/2019 MAUREEN AVENDAÑO MD Ot I50.9 HEART FAILURE, UNSPECIFIED 09/27/2019 MAUREEN AVENDAÑO MD Ot K21.9 GASTRO-ESOPHAGEAL REFLUX DISEASE WITHOUT 09/27/2019 MAUREEN AVENDAÑO MD Ot K31.819 ANGIODYSPLASIA OF STOMACH AND DUODENUM W 09/27/2019 MAUREEN AVENDAÑO MD, Ot N18.9 CHRONIC KIDNEY DISEASE, UNSPECIFIED 09/27/2019 MAUREEN AVENDAÑO MD Ot R06.00 DYSPNEA, UNSPECIFIED 09/27/2019 MAUREEN AVENDAÑO MD Ot R06.02 SHORTNESS OF BREATH 09/27/2019 MAUREEN AVENDAÑO MD Ot R07.9 CHEST PAIN, UNSPECIFIED 09/27/2019 MAUREEN AVENDAÑO MD Ot Z79.4 DETENTION (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 OF INSULIN 09/27/2019 MAUREEN AVENDAÑO MD Ot Z87.8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 09/27/2019 MAUREEN AVENDAÑO MD Ot Z95.1 PRESENCE OF AORTOCORONARY BYPASS GRAFT 09/27/2019 MAUREEN AVENDAÑO MD Ot Z95.5 PRESENCE OF CORONARY ANGIOPLASTY IMPLANT 09/28/2019 MAUREEN AVENDAÑO MD Ot D64.9 ANEMIA, UNSPECIFIED 09/28/2019 MAUREEN AVENDAÑO MD Ot E11.9 TYPE 2 DIABETES MELLITUS WITHOUT COMPLIC 09/28/2019 MAUREEN AVENDAÑO MD Ot E78.00 PURE HYPERCHOLESTEROLEMIA, UNSPECIFIED 09/28/2019 MAUREEN AVENDAÑO MD Ot F41.9 ANXIETY DISORDER, UNSPECIFIED 09/28/2019 MAUREEN AVENDAÑO MD Ot G47.30 SLEEP APNEA, UNSPECIFIED 09/28/2019 MAUREEN AVENDAÑO MD, Ot 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 09/28/2019 MAUREEN AVENDAÑO MD, Ot I25.10 ATHSCL HEART DISEASE OF [place] CORONARY 09/28/2019 MAUREEN AVENDAÑO MD, Ot I48.91 UNSPECIFIED ATRIAL FIBRILLATION 09/28/2019 MAUREEN AVENDAÑO MD, Ot I49.1 ATRIAL PREMATURE DEPOLARIZATION 09/28/2019 MAUREEN AVENDAÑO MD, Ot I50.9 HEART FAILURE, UNSPECIFIED 09/28/2019 MAUREEN AVENDAÑO MD, Ot K21.9 GASTRO-ESOPHAGEAL REFLUX DISEASE WITHOUT 09/28/2019 MAUREEN AVENDAÑO MD Ot K31.819 ANGIODYSPLASIA OF STOMACH AND DUODENUM W 09/28/2019 MAUREEN AVENDAÑO MD, Ot N18.9 CHRONIC KIDNEY DISEASE, UNSPECIFIED 09/28/2019 MAUREEN AVENDAÑO MD Ot R06.00 DYSPNEA, UNSPECIFIED 09/28/2019 MAUREEN AVENDAÑO MD Ot R06.02 SHORTNESS OF BREATH 09/28/2019 MAUREEN AVENDAÑO MD Ot R07.9 CHEST PAIN, UNSPECIFIED 09/28/2019 MAUREEN AVENDAÑO MD, Ot Z79.4 DRAY DRIVER (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 OF INSULIN 09/28/2019 MAUREEN AVENDAÑO MD, Ot Z87.8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 09/28/2019 MAUREEN AVENDAÑO MD Ot Z95.1 PRESENCE OF AORTOCORONARY BYPASS GRAFT 09/28/2019 MAUREEN AVENDAÑO MD, Ot Z95.5 PRESENCE OF CORONARY ANGIOPLASTY IMPLANT 10/04/2019 MAUREEN AVENDAÑO MD Ot D64.9 ANEMIA, UNSPECIFIED 10/04/2019 MAUREEN AVENDAÑO MD Ot E11.9 TYPE 2 DIABETES MELLITUS WITHOUT COMPLIC 10/04/2019 MAUREEN AVENDAÑO MD Ot E78.00 PURE HYPERCHOLESTEROLEMIA, UNSPECIFIED 10/04/2019 MAUREEN AVENDAÑO MD Ot F41.9 ANXIETY DISORDER, UNSPECIFIED 10/04/2019 MAUREEN AVENDAÑO MD Ot G47.30 SLEEP APNEA, UNSPECIFIED 10/04/2019 MAUREEN AVENDAÑO MD, Ot 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 10/04/2019 MAUREEN AVENDAÑO MD, Ot I25.10 ATHSCL HEART DISEASE OF [place] CORONARY 10/04/2019 KATERYNA KHOURY, MAUREEN Rashid Ot I48.91 UNSPECIFIED ATRIAL FIBRILLATION 10/04/2019 MAUREEN AVENDAÑO MD Ot I49.1 ATRIAL PREMATURE DEPOLARIZATION 10/04/2019 KATERYNA KHOURY, MAUREEN Rashid Ot I50.9 HEART FAILURE, UNSPECIFIED 10/04/2019 MAUREEN AVENDAÑO MD Ot K21.9 GASTRO-ESOPHAGEAL REFLUX DISEASE WITHOUT 10/04/2019 MAUREEN AVENDAÑO MD Ot K31.819 ANGIODYSPLASIA OF STOMACH AND DUODENUM W 10/04/2019 MAUREEN AVENDAÑO MD, Ot N18.9 CHRONIC KIDNEY DISEASE, UNSPECIFIED 10/04/2019 MAUREEN AVENDAÑO MD Ot R06.00 DYSPNEA, UNSPECIFIED 10/04/2019 MAUREEN AVENDAÑO MD Ot R06.02 SHORTNESS OF BREATH 10/04/2019 MAUREEN AVENDAÑO MD, Ot R07.9 CHEST PAIN, UNSPECIFIED 10/04/2019 MAUREEN AVENDAÑO MD, Ot Z79.4 DRAY DRIVER (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 OF INSULIN 10/04/2019 MAUREEN AVENDAÑO MD Ot Z87.8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 10/04/2019 MAUREEN AVENDAÑO MD Ot Z95.1 PRESENCE OF AORTOCORONARY BYPASS GRAFT 10/04/2019 MAUREEN AVENDAÑO MD Ot Z95.5 PRESENCE OF CORONARY ANGIOPLASTY IMPLANT 10/06/2019 SHIREEN AGARWAL Ot D50.9 IRON DEFICIENCY ANEMIA, UNSPECIFIED 10/06/2019 SHIREEN AGARWAL Ot D63.1 ANEMIA IN CHRONIC KIDNEY DISEASE 10/06/2019 SHIREEN AGARWAL Ot E03.9 HYPOTHYROIDISM, UNSPECIFIED 10/06/2019 SHIREEN AGARWAL Ot 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 10/06/2019 SHIREEN AGARWAL Ot E53.8 DEFICIENCY OF OTHER SPECIFIED B GROUP 10/06/2019 SHIREEN AGARWAL Ot E66.9 OBESITY, UNSPECIFIED 10/06/2019 SHIREEN AGARWAL Ot E78.5 HYPERLIPIDEMIA, UNSPECIFIED 10/06/2019 SHIREEN AGARWAL Ot 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 10/06/2019 SHIREEN AGARWAL Ot I25.10 ATHSCL HEART DISEASE OF [place] CORONARY 10/06/2019 SHIREEN AGARWAL Ot I47.1 SUPRAVENTRICULAR [...] ADULT 10/06/2019 SHIREEN AGARWAL Ot Z79.899 OTHER DETENTION (CURRENT) DRUG THERAPY 10/06/2019 SHIREEN AGARWAL Ot Z80.0 FAMILY HISTORY OF MALIGNANT NEOPLASM OF 10/06/2019 KRUNAL KHOURY PHD, LULA Clement Ot I50.32 CHRONIC DIASTOLIC (CONGESTIVE) HEART KATY 10/08/2019 KRUNAL KHOURY PHD, LULA Clement Ot I50.32 CHRONIC DIASTOLIC (CONGESTIVE) HEART KATY 10/15/2019 RADHA WOOD MICHELLE Ot D64.9 ANEMIA, UNSPECIFIED 10/15/2019 GARCIA DO, MICHELLE Ot E03.9 HYPOTHYROIDISM, UNSPECIFIED 10/15/2019 GARCIA DO, MICHELLE Ot E11.9 TYPE 2 DIABETES MELLITUS WITHOUT COMPLIC 10/15/2019 GARCIA DO, MICHELLE Ot E53.8 DEFICIENCY OF OTHER SPECIFIED B GROUP 10/15/2019 GARCIA DO, MICHELLE Ot E66.9 OBESITY, UNSPECIFIED 10/15/2019 GARCIA DO, MICHELLE Ot E78.00 PURE HYPERCHOLESTEROLEMIA, UNSPECIFIED 10/15/2019 GARCIA DO, MICHELLE Ot E83.42 HYPOMAGNESEMIA 10/15/2019 GARCIA DO, MICHELLE Ot E86.0 DEHYDRATION 10/15/2019 GARCIA DO, MICHELLE Ot E86.1 HYPOVOLEMIA 10/15/2019 GARCIA DO, MICHELLE Ot F03.90 UNSPECIFIED DEMENTIA WITHOUT BEHAVIORAL 10/15/2019 GARCIA DO, MICHELLE Ot F41.9 ANXIETY DISORDER, UNSPECIFIED 10/15/2019 GARCIA DO, MICHELLE Ot G47.30 SLEEP APNEA, UNSPECIFIED 10/15/2019 GARCIA DO, MICHELLE Ot I12.9 HYPERTENSIVE CHRONIC KIDNEY DISEASE W ST 10/15/2019 GARCIA DO, MICHELLE Ot I25.10 ATHSCL HEART DISEASE OF [place] CORONARY 10/15/2019 GARCIA DO, MICHELLE Ot I25.2 OLD MYOCARDIAL INFARCTION 10/15/2019 GARCIA DO, MICHELLE Ot I48.91 UNSPECIFIED ATRIAL FIBRILLATION 10/15/2019 GARCIA DO, MICHELLE Ot K21.9 GASTRO-ESOPHAGEAL REFLUX DISEASE WITHOUT 10/15/2019 GARCIA DO, MICHELLE Ot K31.81 1 ANGIODYSPLASIA OF STOMACH AND DUODENUM W 10/15/2019 GARCIA DO, MICHELLE Ot K76.9 LIVER DISEASE, UNSPECIFIED 10/15/2019 GARCIA DO, MICHELLE Ot L40.9 PSORIASIS, UNSPECIFIED 10/15/2019 GARCIA DO, MICHELLE Ot M19.91 PRIMARY OSTEOARTHRITIS, UNSPECIFIED SITE 10/15/2019 GARCIA DO, MICHELLE Ot M54.9 DORSALGIA, UNSPECIFIED 10/15/2019 GARCIA DO, MICHELLE Ot N17.9 ACUTE KIDNEY FAILURE, UNSPECIFIED 10/15/2019 GARCIA DO, MICHELLE Ot N18.9 CHRONIC KIDNEY DISEASE, UNSPECIFIED 10/15/2019 GARCIA DO, MICHELLE Ot R29.6 REPEATED FALLS 10/15/2019 MICHELLE GARCIA DO Ot R62.7 ADULT FAILURE TO THRIVE 10/15/2019 GARCIA DOMICHELLE Ot Z66 DO NOT RESUSCITATE 10/15/2019 MICHELLE GARCIA DO Ot Z79.4 DRAY DRIVER (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 OF INSULIN 10/15/2019 MICHELLE GARCIA DO Ot Z95.1 PRESENCE OF AORTOCORONARY BYPASS GRAFT 10/15/2019 MICHELLE GARCIA DO Ot Z99.81 DEPENDENCE ON SUPPLEMENTAL OXYGEN 10/16/2019 SHIREEN AGARWAL Ot D50.9 IRON DEFICIENCY ANEMIA, UNSPECIFIED 10/16/2019 SHIREEN AGARWAL Ot D63.1 ANEMIA IN CHRONIC KIDNEY DISEASE 10/16/2019 SHIREEN AGARWAL Ot E03.9 HYPOTHYROIDISM, UNSPECIFIED 10/16/2019 SHIREEN AGARWAL Ot 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 10/16/2019 SHIREEN AGARWAL Ot E53.8 DEFICIENCY OF OTHER SPECIFIED B GROUP 10/16/2019 SHIREEN AGARWAL Ot E66.9 OBESITY, UNSPECIFIED 10/16/2019 SHIREEN AGARWAL Ot E78.5 HYPERLIPIDEMIA, UNSPECIFIED 10/16/2019 SHIREEN AGARWAL Ot 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 10/16/2019 SHIREEN AGARWAL Ot I25.10 ATHSCL HEART DISEASE OF [place] CORONARY 10/16/2019 SHIREEN AGARWAL Ot I47.1 SUPRAVENTRICULAR [...] ADULT 10/16/2019 SHIREEN AGARWAL Ot 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 10/16/2019 SHIREEN AGARWAL Ot Z80.0 FAMILY HISTORY OF MALIGNANT NEOPLASM OF 10/18/2019 SHIREEN AGARWAL Ot D50.9 IRON DEFICIENCY ANEMIA, UNSPECIFIED 10/18/2019 SHIREEN AGARWAL Ot D63.1 ANEMIA IN CHRONIC KIDNEY DISEASE 10/18/2019 SHIREEN AGARWAL Ot E03.9 HYPOTHYROIDISM, UNSPECIFIED 10/18/2019 SHIREEN AGARWAL Ot 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 10/18/2019 SHIREEN AGARWAL Ot E53.8 DEFICIENCY OF OTHER SPECIFIED B GROUP 10/18/2019 SHIREEN AGARWAL Ot E66.9 OBESITY, UNSPECIFIED 10/18/2019 SHIREEN AGARWAL Ot E78.5 HYPERLIPIDEMIA, UNSPECIFIED 10/18/2019 SHIREEN AGARWAL Ot 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 10/18/2019 SHIREEN AGARWAL Ot I25.10 ATHSCL HEART DISEASE OF [place] CORONARY 10/18/2019 SHIREEN AGARWAL Ot I47.1 SUPRAVENTRICULAR [...] ADULT 10/18/2019 SHIREEN AGARWAL Ot Z79.899 OTHER DETENTION (CURRENT) DRUG THERAPY 10/18/2019 SHIREEN AGARWAL Ot Z80.0 FAMILY HISTORY OF MALIGNANT NEOPLASM OF 10/18/2019 SHIREEN AGARWAL Ot D50.9 IRON DEFICIENCY ANEMIA, UNSPECIFIED 10/18/2019 SHIREEN AGARWAL Ot D63.1 ANEMIA IN CHRONIC KIDNEY DISEASE 10/18/2019 SHIREEN AGARWAL Ot E03.9 HYPOTHYROIDISM, UNSPECIFIED 10/18/2019 SHIREEN AGARWAL Ot 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 10/18/2019 SHIREEN AGARWAL Ot E53.8 DEFICIENCY OF OTHER SPECIFIED B GROUP 10/18/2019 SHIREEN AGARWAL Ot E66.9 OBESITY, UNSPECIFIED 10/18/2019 SHIREEN AGARWAL Ot E78.5 HYPERLIPIDEMIA, UNSPECIFIED 10/18/2019 SHIREEN AGARWAL Ot 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 10/18/2019 SHIREEN AGARWAL Ot I25.10 ATHSCL HEART DISEASE OF [place] CORONARY 10/18/2019 SHIREEN AGARWAL Ot I47.1 SUPRAVENTRICULAR [...] ADULT 10/18/2019 SHIREEN AGARWAL Ot 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 10/18/2019 SHIREEN AGARWAL Ot Z80.0 FAMILY HISTORY OF MALIGNANT NEOPLASM OF 10/20/2019 SHIREEN AGARWAL Ot D50.9 IRON DEFICIENCY ANEMIA, UNSPECIFIED 10/20/2019 SHIREEN AGARWAL Ot D63.1 ANEMIA IN CHRONIC KIDNEY DISEASE 10/20/2019 SHIREEN AGARWAL Ot E03.9 HYPOTHYROIDISM, UNSPECIFIED 10/20/2019 SHIREEN AGARWAL Ot 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 10/20/2019 SHIREEN AGARWAL Ot E53.8 DEFICIENCY OF OTHER SPECIFIED B GROUP 10/20/2019 SHIREEN AGARWAL Ot E66.9 OBESITY, UNSPECIFIED 10/20/2019 SHIREEN AGARWAL Ot E78.5 HYPERLIPIDEMIA, UNSPECIFIED 10/20/2019 SHIREEN AGARWAL Ot 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 10/20/2019 SHIREEN AGARWAL Ot I25.10 ATHSCL HEART DISEASE OF [place] CORONARY 10/20/2019 SHIREEN AGARWAL Ot I47.1 SUPRAVENTRICULAR [...] ADULT 10/20/2019 SHIREEN AGARWAL Ot Z79.899 OTHER DETENTION (CURRENT) DRUG THERAPY 10/20/2019 SHIREEN AGARWAL Ot Z80.0 FAMILY HISTORY OF MALIGNANT NEOPLASM OF 10/20/2019 SHIREEN AGARWAL Ot D50.9 IRON DEFICIENCY ANEMIA, UNSPECIFIED 10/20/2019 SHIREEN AGARWAL Ot D63.1 ANEMIA IN CHRONIC KIDNEY DISEASE 10/20/2019 SHIREEN AGARWAL Ot E03.9 HYPOTHYROIDISM, UNSPECIFIED 10/20/2019 SHIREEN AGARWAL Ot 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 10/20/2019 SHIREEN AGARWAL Ot E53.8 DEFICIENCY OF OTHER SPECIFIED B GROUP 10/20/2019 SHIREEN AGARWAL Ot E66.9 OBESITY, UNSPECIFIED 10/20/2019 SHIREEN AGARWAL Ot E78.5 HYPERLIPIDEMIA, UNSPECIFIED 10/20/2019 SHIREEN AGARWAL Ot 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 10/20/2019 SHIREEN AGARWAL Ot I25.10 ATHSCL HEART DISEASE OF [place] CORONARY 10/20/2019 SHIREEN AGARWAL Ot I47.1 SUPRAVENTRICULAR TACHYCARDIA 10/20/2019 SHIREEN AGARWAL Ot I48.91 UNSPECIFIED ATRIAL FIBRILLATION 10/20/2019 SHIREEN AGARWAL Ot I50.30 UNSPECIFIED DIASTOLIC (CONGESTIVE) HEART 10/20/2019 SHIREEN AGARWAL Ot K29.51 UNSPECIFIED CHRONIC GASTRITIS WITH BLEED 10/20/2019 SHIREEN AGARWAL Ot K31.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 10/20/2019 SHIREEN AGARWAL Ot K44.9 DIAPHRAGMATIC HERNIA WITHOUT OBSTRUCTION 10/20/2019 ANYSHIREEN Ot K63.5 POLYP OF COLON 10/20/2019 SHIREEN AGARWAL Ot K64.9 UNSPECIFIED HEMORRHOIDS 10/20/2019 SHIREEN AGARWAL Ot K74.60 UNSPECIFIED CIRRHOSIS OF LIVER 10/20/2019 SHIREEN AGARWAL Ot M19.90 UNSPECIFIED OSTEOARTHRITIS, UNSPECIFIED 10/20/2019 SHIREEN AGARWAL Ot N18.4 CHRONIC KIDNEY DISEASE, STAGE 4 (SEVERE) 10/20/2019 SHIREEN AGARWAL Ot Z68.33 BODY MASS INDEX (BMI) 33.0-33.9, ADULT 10/20/2019 SHIREEN AGARWAL Ot Z79.899 OTHER DETENTION (CURRENT) DRUG THERAPY 10/20/2019 SHIREEN AGARWAL Ot Z80.0 FAMILY HISTORY OF MALIGNANT NEOPLASM OF 10/25/2019 SHIREEN AGARWAL Ot D50.9 IRON DEFICIENCY ANEMIA, UNSPECIFIED 10/25/2019 SHIREEN AGARWAL Ot D63.1 ANEMIA IN CHRONIC KIDNEY DISEASE 10/25/2019 SHIREEN AGARWAL Ot E03.9 HYPOTHYROIDISM, UNSPECIFIED 10/25/2019 SHIREEN AGARWAL Ot 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 10/25/2019 SHIREEN AGARWAL Ot E53.8 DEFICIENCY OF OTHER SPECIFIED B GROUP 10/25/2019 SHIREEN AGARWAL Ot E66.9 OBESITY, UNSPECIFIED 10/25/2019 SHIREEN AGARWAL Ot E78.5 HYPERLIPIDEMIA, UNSPECIFIED 10/25/2019 SHIREEN AGARWAL Ot 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 10/25/2019 SHIREEN AGARWAL Ot I25.10 ATHSCL HEART DISEASE OF [place] CORONARY 10/25/2019 SHIREEN AGARWAL Ot I47.1 SUPRAVENTRICULAR TACHYCARDIA 10/25/2019 SHIREEN AGARWAL Ot I48.91 UNSPECIFIED ATRIAL FIBRILLATION 10/25/2019 SHIREEN AGARWAL Ot I50.30 UNSPECIFIED DIASTOLIC (CONGESTIVE) HEART 10/25/2019 SHIREEN AGARWAL Ot K29.51 UNSPECIFIED CHRONIC GASTRITIS WITH BLEED 10/25/2019 SHIREEN AGARWAL Ot K31.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 10/25/2019 SHIREEN AGARWAL Solange Ot K44.9 DIAPHRAGMATIC HERNIA WITHOUT OBSTRUCTION 10/25/2019 SHIREEN AGARWAL Solange Ot K63.5 POLYP OF COLON 10/25/2019 SHIREEN AGARWAL Solange Ot K64.9 UNSPECIFIED HEMORRHOIDS 10/25/2019 SHIREEN AGARWAL Solange Ot K74.60 UNSPECIFIED CIRRHOSIS OF LIVER 10/25/2019 SHIREEN AGARWAL Solange Ot M19.90 UNSPECIFIED OSTEOARTHRITIS, UNSPECIFIED 10/25/2019 ANY JJONDINA Solange Ot N18.4 CHRONIC KIDNEY DISEASE, STAGE 4 (SEVERE) 10/25/2019 SHIREEN AGARWAL Solange Ot Z68.33 BODY MASS INDEX (BMI) 33.0-33.9, ADULT 10/25/2019 SHIREEN AGARWAL Solange Ot Z79.899 OTHER DETENTION (CURRENT) DRUG THERAPY 10/25/2019 SHIREEN AGARWAL Solange Ot Z80.0 FAMILY HISTORY OF MALIGNANT NEOPLASM OF 10/29/2019 JAMES TORRES MD Ot A41.9 SEPSIS, UNSPECIFIED ORGANISM 10/29/2019 JAMES TORRES MD Ot D50.0 IRON DEFICIENCY ANEMIA SECONDARY TO BLOO 10/29/2019 JAMES TORRES MD Ot E03.9 HYPOTHYROIDISM, UNSPECIFIED 10/29/2019 JAMES TORRES MD Ot E11.6 5 TYPE 2 DIABETES MELLITUS WITH HYPERGLYCE 10/29/2019 JAMES TORRES MD Ot E86.0 DEHYDRATION 10/29/2019 JAMES TORRES MD, Ot F41.9 ANXIETY DISORDER, UNSPECIFIED 10/29/2019 JAMES TORRES MD Ot G47.3 0 SLEEP APNEA, UNSPECIFIED 10/29/2019 JAMES TORRES MD Ot G81.9 4 HEMIPLEGIA, UNSPECIFIED AFFECTING LEFT N 10/29/2019 JAMES TORRES MD Ot 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 10/29/2019 JAMES TORRES MD Ot I25.1 0 ATHSCL HEART DISEASE OF [place] CORONARY 10/29/2019 JAMES TORRES MD, Ot I25.2 OLD MYOCARDIAL INFARCTION 10/29/2019 JAMES TORRES MD Ot I48.0 PAROXYSMAL ATRIAL FIBRILLATION 10/29/2019 GAULT MD, JAMES R Ot I50.9 HEART FAILURE, UNSPECIFIED 10/29/2019 JAMES TORRES MD Ot I63.9 CEREBRAL INFARCTION, UNSPECIFIED 10/29/2019 JAMES TORRES MD Ot K31.8 11 ANGIODYSPLASIA OF STOMACH AND DUODENUM W 10/29/2019 JAMES TORRES MD Ot K74.6 0 UNSPECIFIED CIRRHOSIS OF LIVER 10/29/2019 JAMES TORRES MD Ot N17.9 ACUTE KIDNEY FAILURE, UNSPECIFIED 10/29/2019 AJMES TORRES MD Ot N18.9 CHRONIC KIDNEY DISEASE, UNSPECIFIED 10/29/2019 JAMES TORRES MD, Ot N39.0 URINARY TRACT INFECTION, SITE NOT SPECIF 10/29/2019 JAMES TORRES MD, Ot R25.1 TREMOR, UNSPECIFIED 10/29/2019 JAMES TORRES MD, Ot R41.8 2 ALTERED MENTAL STATUS, UNSPECIFIED 10/29/2019 JAMES TORRES MD, Ot R47.8 9 OTHER SPEECH DISTURBANCES 10/29/2019 JAMES TORRES MD, Ot R56.9 UNSPECIFIED CONVULSIONS 10/29/2019 JAMES TORRES MD, Ot R65.2 0 SEVERE SEPSIS WITHOUT SEPTIC SHOCK 10/29/2019 JAMES TORRES MD, Ot T50.905A ADVERSE EFFECT OF UNSP DRUG/MEDS/BIOL CALDERON 10/29/2019 JAMES TORRES MD, Ot Z51.5 ENCOUNTER FOR PALLIATIVE CARE 10/29/2019 JAMES TORRES MD Ot Z66 DO NOT RESUSCITATE 10/29/2019 JAMES TORRES MD, Ot Z87.8 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 10/29/2019 JAMES TORRES MD Ot Z95.1 PRESENCE OF AORTOCORONARY BYPASS GRAFT 10/29/2019 JAMES TORRES MD, Ot Z95.5 PRESENCE OF CORONARY ANGIOPLASTY IMPLANT 11/05/2019 GARCIA DO MICHELLE Ot D50.0 IRON DEFICIENCY ANEMIA SECONDARY TO BLOO 11/05/2019 GARCIA DO MICHELLE Ot D70.9 NEUTROPENIA, UNSPECIFIED 11/05/2019 GARCIA DO, MICHELLE Ot E03.9 HYPOTHYROIDISM, UNSPECIFIED 11/05/2019 GARCIA DO, MICHELLE Ot E11.65 TYPE 2 DIABETES MELLITUS WITH HYPERGLYCE 11/05/2019 RADHA DO MICHELLE Ot E53.8 DEFICIENCY OF OTHER SPECIFIED B GROUP 11/05/2019 RADHA WOOD, MICHELLE Ot E78.00 PURE HYPERCHOLESTEROLEMIA, UNSPECIFIED 11/05/2019 RADHA WOOD MICHELLE Ot F03.90 UNSPECIFIED DEMENTIA WITHOUT BEHAVIORAL 11/05/2019 RADHA WOOD MICHELLE Ot F41.9 ANXIETY DISORDER, UNSPECIFIED 11/05/2019 RADHA WOOD MICHELLE Ot G47.30 SLEEP APNEA, UNSPECIFIED 11/05/2019 RADHA WOOD MICHELLE Ot 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 11/05/2019 RADHA WOOD MICHELLE Ot I25.10 ATHSCL HEART DISEASE OF [place] CORONARY 11/05/2019 RADHA WOOD MICHELLE Ot I25.2 OLD MYOCARDIAL INFARCTION 11/05/2019 RADHA WOOD MICHELLE Ot I48.0 PAROXYSMAL ATRIAL FIBRILLATION 11/05/2019 RADHA WOOD MICHELLE Ot I50.9 HEART FAILURE, UNSPECIFIED 11/05/2019 RADHA WOOD MICHELLE Ot I87.2 VENOUS INSUFFICIENCY (CHRONIC) (PERIPHER 11/05/2019 RADHA WOOD MICHELLE Ot J02.9 ACUTE PHARYNGITIS, UNSPECIFIED 11/05/2019 RADHA WOOD MICHELLE Ot J18.9 PNEUMONIA, UNSPECIFIED ORGANISM 11/05/2019 RADHA WOOD MICHELLE Ot K31.81 1 ANGIODYSPLASIA OF STOMACH AND DUODENUM W 11/05/2019 RADHA WOOD MICHELLE Ot K74.60 UNSPECIFIED CIRRHOSIS OF LIVER 11/05/2019 RADHA WOOD MICHELLE Ot K76.6 PORTAL HYPERTENSION 11/05/2019 RADHA WOOD MICHELLE Ot N18.3 CHRONIC KIDNEY DISEASE, STAGE 3 (MODERAT 11/05/2019 RADHA WOOD MICHELLE Ot N39.0 URINARY TRACT INFECTION, SITE NOT SPECIF 11/05/2019 RADHA WOOD MICHELLE Ot R09.02 HYPOXEMIA 11/05/2019 RADHA WOOD MICHELLE Ot R63.4 ABNORMAL WEIGHT LOSS 11/05/2019 RADHA WOOD MICHELLE Ot Z79.4 DRAY DRIVER (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 OF INSULIN 11/05/2019 RADHA WOOD MICHELLE Ot Z87.89 1 PERSONAL HISTORY OF NICOTINE DEPENDENCE 11/05/2019 RADHA WOOD MICHELLE Ot Z95.1 PRESENCE OF AORTOCORONARY BYPASS GRAFT 11/05/2019 GARCIA DO, MICHELLE Ot Z95.5 PRESENCE OF CORONARY ANGIOPLASTY IMPLANT 11/05/2019 RADHA WOOD, MICHELLE Ot Z99.81 DEPENDENCE ON SUPPLEMENTAL OXYGEN 11/05/2019 RADHA WOOD, MICHELLE Ot D50.0 IRON DEFICIENCY ANEMIA SECONDARY TO BLOO 11/05/2019 RADHA WOOD, MICHELLE Ot D70.9 NEUTROPENIA, UNSPECIFIED 11/05/2019 RADHA WOOD, MICHELLE Ot E03.9 HYPOTHYROIDISM, UNSPECIFIED 11/05/2019 RADHA WOOD, MICHELLE Ot E11.65 TYPE 2 DIABETES MELLITUS WITH HYPERGLYCE 11/05/2019 RADHA WOOD MICHELLE Ot E53.8 DEFICIENCY OF OTHER SPECIFIED B GROUP 11/05/2019 RADHA WOOD, MICHELLE Ot E78.00 PURE HYPERCHOLESTEROLEMIA, UNSPECIFIED 11/05/2019 RADHA WOOD, MICHELLE Ot F03.90 UNSPECIFIED DEMENTIA WITHOUT BEHAVIORAL 11/05/2019 RADHA WOOD MICHELLE Ot F41.9 ANXIETY DISORDER, UNSPECIFIED 11/05/2019 RADHA WOOD MICHELLE Ot G47.30 SLEEP APNEA, UNSPECIFIED 11/05/2019 RADHA WOOD MICHELLE Ot 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 11/05/2019 RADHA WOOD, MICHELLE Ot I25.10 ATHSCL HEART DISEASE OF [place] CORONARY 11/05/2019 RADHA WOOD, MICHELLE Ot I25.2 OLD MYOCARDIAL INFARCTION 11/05/2019 RADHA WOOD, MICHELLE Ot I48.0 PAROXYSMAL ATRIAL FIBRILLATION 11/05/2019 RADHA WOOD, MICHELLE Ot I50.9 HEART FAILURE, UNSPECIFIED 11/05/2019 RADHA WOOD MICHELLE Ot I87.2 VENOUS INSUFFICIENCY (CHRONIC) (PERIPHER 11/05/2019 RADHA WOOD, MICHELLE Ot J02.9 ACUTE PHARYNGITIS, UNSPECIFIED 11/05/2019 RADHA WOOD, MICHELLE Ot J18.9 PNEUMONIA, UNSPECIFIED ORGANISM 11/05/2019 RADHA WOOD MICHELLE Ot K31.81 1 ANGIODYSPLASIA OF STOMACH AND DUODENUM W 11/05/2019 RADHA WOOD MICHELLE Ot K74.60 UNSPECIFIED CIRRHOSIS OF LIVER 11/05/2019 RADHA WOOD, MICHELLE Ot K76.6 PORTAL HYPERTENSION 11/05/2019 RADHA WOOD MICHELLE Ot N18.3 CHRONIC KIDNEY DISEASE, STAGE 3 (MODERAT 11/05/2019 RADHA WOOD, MICHELLE Ot N39.0 URINARY TRACT INFECTION, SITE NOT SPECIF 11/05/2019 RADHA WOOD, MICHELLE Ot R09.02 HYPOXEMIA 11/05/2019 RADHA WOOD MICHELLE Ot R63.4 ABNORMAL WEIGHT LOSS 11/05/2019 RADHA WOOD MICHELLE Ot Z79.4 DRAY DRIVER (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 OF INSULIN 11/05/2019 RADHA WOOD MICHELEL Ot Z87.89 1 PERSONAL HISTORY OF NICOTINE DEPENDENCE 11/05/2019 RADHA WOOD MICHELLE Ot Z95.1 PRESENCE OF AORTOCORONARY BYPASS GRAFT 11/05/2019 RADHA WOOD MICHELLE Ot Z95.5 PRESENCE OF CORONARY ANGIOPLASTY IMPLANT 11/05/2019 RADHA WOOD MICHELLE Ot Z99.81 DEPENDENCE ON SUPPLEMENTAL OXYGEN 11/06/2019 RADHA WOOD MICHELLE Ot D50.0 IRON DEFICIENCY ANEMIA SECONDARY TO BLOO 11/06/2019 RADHA WOOD MICHELLE Ot D70.9 NEUTROPENIA, UNSPECIFIED 11/06/2019 RADHA WOOD, MICHELLE Ot E03.9 HYPOTHYROIDISM, UNSPECIFIED 11/06/2019 RADHA WOOD MICHELLE Ot E11.65 TYPE 2 DIABETES MELLITUS WITH HYPERGLYCE 11/06/2019 RADHA WOOD MICHELLE Ot E53.8 DEFICIENCY OF OTHER SPECIFIED B GROUP 11/06/2019 RADHA WOOD, MICHELLE Ot E78.00 PURE HYPERCHOLESTEROLEMIA, UNSPECIFIED 11/06/2019 RADHA WOOD, MICHELLE Ot F03.90 UNSPECIFIED DEMENTIA WITHOUT BEHAVIORAL 11/06/2019 RADHA WOOD, MICHELLE Ot F41.9 ANXIETY DISORDER, UNSPECIFIED 11/06/2019 RADHA WOOD, MICHELLE Ot G47.30 SLEEP APNEA, UNSPECIFIED 11/06/2019 RADHA WOOD MICHELLE Ot 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 11/06/2019 RADHA WOOD, MICHELLE Ot I25.10 ATHSCL HEART DISEASE OF [place] CORONARY 11/06/2019 RADHA WOOD, MICHELLE Ot I25.2 OLD MYOCARDIAL INFARCTION 11/06/2019 RADHA WOOD MICHELLE Ot I48.0 PAROXYSMAL ATRIAL FIBRILLATION 11/06/2019 RADHA WOOD, MICHELLE Ot I50.9 HEART FAILURE, UNSPECIFIED 11/06/2019 RADHA WOOD, MICHELLE Ot I87.2 VENOUS INSUFFICIENCY (CHRONIC) (PERIPHER 11/06/2019 RADHA WOOD MICHELLE Ot J02.9 ACUTE PHARYNGITIS, UNSPECIFIED 11/06/2019 RADHA WOOD, MICHELLE Ot J18.9 PNEUMONIA, UNSPECIFIED ORGANISM 11/06/2019 GARCIA DO, MICHELLE Ot K31.81 1 ANGIODYSPLASIA OF STOMACH AND DUODENUM W 11/06/2019 RADHA WOOD, MICHELLE Ot K74.60 UNSPECIFIED CIRRHOSIS OF LIVER 11/06/2019 GARCIA DO, MICHELLE Ot K76.6 PORTAL HYPERTENSION 11/06/2019 GARCIA DO, MICHELLE Ot N18.3 CHRONIC KIDNEY DISEASE, STAGE 3 (MODERAT 11/06/2019 GARCIA DO, MCIHELLE Ot N39.0 URINARY TRACT INFECTION, SITE NOT SPECIF 11/06/2019 RADHA WOOD MICHELLE Ot R09.02 HYPOXEMIA 11/06/2019 GARCIA DO MICHELLE Ot R63.4 ABNORMAL WEIGHT LOSS 11/06/2019 GARCIA , MICHELLE Ot Z79.4 DETENTION (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 OF INSULIN 11/06/2019 GARCIA MICHELLE Ot Z87.89 1 PERSONAL HISTORY OF NICOTINE DEPENDENCE 11/06/2019 GARCIA MICHELLE Ot Z95.1 PRESENCE OF AORTOCORONARY BYPASS GRAFT 11/06/2019 GARCIA , MICHELLE Ot Z95.5 PRESENCE OF CORONARY ANGIOPLASTY IMPLANT 11/06/2019 RADHA WOOD, MICHELLE Ot Z99.81 DEPENDENCE ON SUPPLEMENTAL OXYGEN 11/06/2019 GARCIA DO, MICHELLE Ot D50.0 IRON DEFICIENCY ANEMIA SECONDARY TO BLOO 11/06/2019 GARCIA DO, MICHELLE Ot D70.9 NEUTROPENIA, UNSPECIFIED 11/06/2019 GARCIA DO, MICHELLE Ot E03.9 HYPOTHYROIDISM, UNSPECIFIED 11/06/2019 GARCIA DO, MICHELLE Ot E11.65 TYPE 2 DIABETES MELLITUS WITH HYPERGLYCE 11/06/2019 GARCIA DO, MICHELLE Ot E53.8 DEFICIENCY OF OTHER SPECIFIED B GROUP 11/06/2019 GARCIA DO, MICHELLE Ot E78.00 PURE HYPERCHOLESTEROLEMIA, UNSPECIFIED 11/06/2019 GARCIA DO, MICHELLE Ot F03.90 UNSPECIFIED DEMENTIA WITHOUT BEHAVIORAL 11/06/2019 GARCIA DO, MICHELLE Ot F41.9 ANXIETY DISORDER, UNSPECIFIED 11/06/2019 GARCIA DO, MICHELLE Ot G47.30 SLEEP APNEA, UNSPECIFIED 11/06/2019 GARCIA DO, MICHELLE Ot 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 11/06/2019 GARCIA DO, MICHELLE Ot I25.10 ATHSCL HEART DISEASE OF [place] CORONARY 11/06/2019 RADHA WOOD, MICHELLE Ot I25.2 OLD MYOCARDIAL INFARCTION 11/06/2019 RADHA WOOD, MICHELLE Ot I48.0 PAROXYSMAL ATRIAL FIBRILLATION 11/06/2019 GARCIA DO, MICHELLE Ot I50.9 HEART FAILURE, UNSPECIFIED 11/06/2019 RADHA WOOD, MICHELLE Ot I87.2 VENOUS INSUFFICIENCY (CHRONIC) (PERIPHER 11/06/2019 RADHA WOOD, MICHELLE Ot J02.9 ACUTE PHARYNGITIS, UNSPECIFIED 11/06/2019 GARCIA DO, MICHELLE Ot J18.9 PNEUMONIA, UNSPECIFIED ORGANISM 11/06/2019 RADHA WOOD MICHELLE Ot K31.81 1 ANGIODYSPLASIA OF STOMACH AND DUODENUM W 11/06/2019 RADHA WOOD MICHELLE Ot K74.60 UNSPECIFIED CIRRHOSIS OF LIVER 11/06/2019 RADHA WOOD, MICHELLE Ot K76.6 PORTAL HYPERTENSION 11/06/2019 RADHA WOOD MICHELLE Ot N18.3 CHRONIC KIDNEY DISEASE, STAGE 3 (MODERAT 11/06/2019 RADHA WOOD, MICHELLE Ot N30.00 ACUTE CYSTITIS WITHOUT HEMATURIA 11/06/2019 RADHA WOOD MICHELLE Ot R09.02 HYPOXEMIA 11/06/2019 RADHA WOOD MICHELLE Ot R18.8 OTHER ASCITES 11/06/2019 RADHA WOOD MICHELLE Ot R63.4 ABNORMAL WEIGHT LOSS 11/06/2019 RADHA WOOD MICHELLE Ot Z79.4 DETENTION (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 OF INSULIN 11/06/2019 RADHA WOOD MICHELLE Ot Z87.89 1 PERSONAL HISTORY OF NICOTINE DEPENDENCE 11/06/2019 RADHA WOOD MICHELLE Ot Z95.1 PRESENCE OF AORTOCORONARY BYPASS GRAFT 11/06/2019 RADHA WOOD MICHELLE Ot Z95.5 PRESENCE OF CORONARY ANGIOPLASTY IMPLANT 11/06/2019 RADHA WOOD MICHELLE Ot Z99.81 DEPENDENCE ON SUPPLEMENTAL OXYGEN 11/10/2019 SHIREEN AGARWAL Ot D50.9 IRON DEFICIENCY ANEMIA, UNSPECIFIED 11/10/2019 SHIREEN AGARWAL Ot D63.1 ANEMIA IN CHRONIC KIDNEY DISEASE 11/10/2019 SHIREEN AGARWAL Ot E03.9 HYPOTHYROIDISM, UNSPECIFIED 11/10/2019 SHIREEN AGARWAL Ot 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 11/10/2019 SHIREEN AGARWAL Ot E53.8 DEFICIENCY OF OTHER SPECIFIED B GROUP 11/10/2019 SHIREEN AGARWAL Ot E66.9 OBESITY, UNSPECIFIED 11/10/2019 SHIREEN AGARWAL Ot E78.5 HYPERLIPIDEMIA, UNSPECIFIED 11/10/2019 SHIREEN AGARWAL Ot 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 11/10/2019 SHIREEN AGARWAL Ot I25.10 ATHSCL HEART DISEASE OF [place] CORONARY 11/10/2019 SHIREEN AGARWAL Ot I47.1 SUPRAVENTRICULAR TACHYCARDIA 11/10/2019 SHIREEN AGARWAL Ot I48.91 UNSPECIFIED ATRIAL FIBRILLATION 11/10/2019 SHIREEN AGARWAL Ot I50.30 UNSPECIFIED DIASTOLIC (CONGESTIVE) HEART 11/10/2019 SHIREEN AGARWAL Ot K29.51 UNSPECIFIED CHRONIC GASTRITIS WITH BLEED 11/10/2019 SHIREEN AGARWAL Ot K31.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 11/10/2019 SHIREEN AGARWAL Ot K44.9 DIAPHRAGMATIC HERNIA WITHOUT OBSTRUCTION 11/10/2019 SHIREEN AGARWAL Ot K63.5 POLYP OF COLON 11/10/2019 SHIREEN AGARWAL Ot K64.9 UNSPECIFIED HEMORRHOIDS 11/10/2019 SHIREEN AGARWAL Ot K74.60 UNSPECIFIED CIRRHOSIS OF LIVER 11/10/2019 SHIREEN AGARWAL Ot M19.90 UNSPECIFIED OSTEOARTHRITIS, UNSPECIFIED 11/10/2019 SHIREEN AGARWAL Ot N18.4 CHRONIC KIDNEY DISEASE, STAGE 4 (SEVERE) 11/10/2019 SHIREEN AGARWAL Ot Z68.33 BODY MASS INDEX (BMI) 33.0-33.9, ADULT 11/10/2019 SHIREEN AGARWAL Ot 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 11/10/2019 SHIREEN AGARWAL Ot Z80.0 FAMILY HISTORY OF MALIGNANT NEOPLASM OF Procedures Code Description Performed By Per fred On 00.40 PROC EDURE ON SINGLE VESSEL 05/21/2010 00.45 INSE RTION OF ONE VASCULAR STENT 05/21/2010 00.66 PERC TRANSLUMINAL CORON ANGIOPLASTY PTCA 05/21/2010 36.07 INSR T OF DRUG-ELUTING CORON ARTERY STENT 05/21/2010 37.22 LEFT HEART CARDIAC CATH 05/21/2010 88.53 LT H EART ANGIOCARDIOGRAM 05/21/2010 88.56 SAE RYAN ARTERIOGR-2 CATH 05/21/2010 [id number] ME ASURE OF CARDIAC SAMPL PRESSURE, L H 01/30/2017 [id number] FL UOROSCOPY OF MULT COR ART USING L OSM 01/30/2017 [id number] FL UOROSCOPY OF LEFT HEART USING LOW OSMO 01/30/2017 [id number] ME ASURE OF CARDIAC SAMPL PRESSURE, L H 02/12/2018 [id number] FL UOROSCOPY OF MULT COR ART USING L OSM 02/12/[id number] GLASGOW OF BILATERAL LUNGS, ENDO, DIAGN 05/30/2018 [id number] EX TRACTION OF RIGHT MAIN BRONCHUS, ENDO, 05/30/2018 [id number] EX TRACTION OF LEFT MAIN BRONCHUS, ENDO, 05/30/2018 [id number] RE SPIRATORY VENTILATION, 24- 96 CONSECUTI 05/30/2018 [id number] IN TRODUCTION OF ANTI- INFLAMMATORY INTO J [...] RED CELLS LEUKO REDUCED AS1 T RANSFUSED 01/29/175 NRG Blood type T Indirect antibody screen pa myron - 01/29/17 13:20 ABO+Rh group AP NRG Transfusion band number [id number] NR Blood group antibody screen POSITIVE NR G Blood group antibodies identified - 01/13 12/29 13:20 Blood group antibodies identified [facility] Capillary blood glucose measurement by g [...] REDUCED AS1 P RSMD TRFSD 06/12/17 0855 [facility] [id number] - 06/10/17 11:45 [id number] SPECIMEN AVAILABLE [facility] Blood type T Indirect antibody screen pa myron - 06/10/17 11:45 ABO+Rh group AP [facility] Transfusion band number [id number] [facility] Blood group antibody screen POSITIVE NR G Blood group antibodies identified - 05/16 12/29 11:45 Blood group antibodies identified [facility] Comprehensive metabolic panel - 06/10/17 11:45 [...] mg/dL 0.1-1.0 Serum or plasma alkaline phosphatase mmoo surement (enzymatic activity/volume) 51 U/L 40-136 Serum [...] plasma ferritin measurement (mass/volume) 45.0 % 15.0-150.0 [id number] - 07/01/17 12:54 [id number] SPECIMEN AVAILABLE [facility] Complete blood count (CBC) with automate d [...] LEUKO REDUCED AS1 T RANSFUSED 10/04/17 0956 NRG Blood type T Indirect antibody screen pa myron - 10/04/17 07:13 ABO+Rh group AP NRG Transfusion band number [id number] NRG Blood group antibody screen NEGATIVE NR G Capillary blood glucose measurement by g lucometer (mass/volume) - 10/04/17 10:39 Capillary blood glucose measurement by glucometer (mas s/volume) 354 mg/dL 70-110 Capillary blood glucose measurement by g lucometer (mass/volume) - 10/04/17 16:05 Capillary blood glucose measurement by glucometer (mas s/volume) 318 mg/dL 70-110 Whole blood hemoglobin and hematocrit [facility] - 10/04/17 16:19 Venous blood hemoglobin measurement [...] culture - 10/05/17 00:43 Bacterial urine culture [id number] NRG COLONY COUNT >100,000/ML NRG FTX;REPORTABLE SENSITIVITY [...] by glucometer (mas s/volume) 356 mg/dL 70-110 [id number] - 11/03/17 13:10 [id number] SPECIMEN AVAILABLE NR Lipid 1996 panel - 11/06/17 11:40 Serum [...] RED CELLS LEUKO REDUCED AS1 T RANSFUSED 11/06/17 1948 [facility] Blood type T Indirect antibody screen pa myron - 11/06/17 11:40 ABO+Rh group AP [facility] Transfusion band number [id number] [facility] Blood group antibody screen NEGATIVE [facility] Comprehensive metabolic panel - 11/06/17 11:40 [...] or plasma urea nitrogen/creatinine mass ratio 19 NR Serum or plasma creatinine measurement w ith calculation of estimated glomerular filtration rate 42 [facility] Serum or plasma glucose measurement (mass/volume) 126 [...] LEUKO REDUCED AS1 T RANSFUSED 02/11/18 0229 NR Blood type T Indirect antibody screen [...] g/dL 3.2-4.5 CALCIUM CORRECTED 9.4 mg/dL 8.5-10.1 [id number] - 04/29/18 16:30 Screening antinuclear antibody (IVON) [...] Non-Reactive Immunoglobulin G subclass panel - 16:30 [id number] 1631 % [id number] Immunoglobulin G1 measurement 994 [...] ABO+Rh group AP NRG Transfusion band number [id number] NRG Blood group antibody screen NEGATIVE NR [...] OF GROWTH Isolated NRG Bacterial blood culture [id number] NRG RML [facility] - 05/20/18 [...] culture - 05/20/18 21:38 Bacterial urine culture [id number] NRG COLONY COUNT >100,000/ML NRG FTX;REPORTABLE RML [...] myron - 05/21/18 15:00 ABO+Rh group AP NR Transfusion band number [id number] NRG Blood group antibody screen NEGATIVE NR [...] 05/22 16:05 NRG Bacterial catheter tip [id number] - 05/21/18 17:10 Oxacillin susceptibility [...] ABO+Rh group AP NRG Transfusion band number [id number] NRG Blood group antibody screen NEGATIVE NR Capillary blood glucose measurement by g lucometer [...] culture - 05/28/18 15:15 Bacterial urine culture [id number] NRG COLONY COUNT 30,000 CFU/ML NRG FTX;REPORTABLE [...] culture - 05/30/18 21:50 Bacterial urine culture [id number] NRG COLONY COUNT 40,000 CFU/ML NRG FTX;REPORTABLE [...] G Measurement of body temperature 98.8 NRG [id number] - 05/31/18 06:00 Cytologic examination of Papanicolaou smear by edgari an SEE FOOTNOTE NRG Sputum Gram stain [...] 10:05 NRG C FUNGUS SPUTUM FLUID TISSUE [id number] N RG Arterial blood gas measurement - [...] Blood type T Indirect antibody screen [facility] - 05/31/18 12:15 ABO+Rh group AP NRG Transfusion band number [id number] NRG Blood group antibody screen NEGATIVE NR [...] NRG Whole blood hemoglobin and hematocrit pa [facility] - 05/31/18 16:58 Venous blood hemoglobin measurement [...] 8.5-10.1 Whole blood hemoglobin and hematocrit [facility] - 06/21/18 10:52 Venous blood hemoglobin measurement (mass/volume) 8.3 g/dL 11.5-16.0 Blood hematocrit (volume fraction) 28 % 35-52 Serum or plasma lithium measurement (mol es/volume) - 06/21/18 10:52 BNP level 300.7 pg/mL <100.0 RED CELLS LEUKO REDUCED AS1 - 06/21/18 1 0:52 RED CELLS LEUKO REDUCED AS1 T RANSFUSED 06/22/18 1715 [facility] Blood type T Indirect antibody screen [facility] - 06/21/18 10:52 ABO+Rh group AP NR Transfusion band number [id number] NR Blood group antibody screen NEGATIVE NR [...] ABO+Rh group AP NR Transfusion band number [id number] NR Blood group antibody screen NEGATIVE NR [...] g/dL 3.2-4.5 CALCIUM CORRECTED 9.8 mg/dL 8.5-10.1 BMP - 07/08/18 17:15 Anion Gap 15 6-14 BUN 10 mg/dL 5-25 Calcium 9.0 mg/dL 8.3-10.4 Chloride 100 mmol/L 95-114 CO2 32 mEq/L 22-33 Creat 1.32 mg/dL 0.50-1.50 eGFR 41 mL/min/1.73m2 >59 Glucose 131 mg/dL 70-110 Osmo 294 280-295 Potassium 4.8 mmol/L 3.5-5.3 Sodium 142 mmol/L 134-148 Magnesium - 07/08/18 17:15 Mg++ 2.0 mg/dL 1.6-2.6 CBC with Auto Diff - 07/15/18 14:20 Baso% 0.30 % 0.00-2.50 Eos 0.4 K/uL 0.0-0.7 Eos% 7.4 % 0.0-7.0 Hct 30.8 % 36.0-46.0 Hgb 9.5 g/dL 13.0-15.0 Lym 0.93 K/uL 0.60-3.40 Lym% 16.0 % 10.0-50.0 MCH 29.6 pg 27.0-31.0 MCHC 30.8 g/dL 32.0-36.0 MCV 96.0 fL 80.0-97.0 [place]% 10.3 % 0.0-12.0 MPV 10.4 fL 7.4-10.0 Ryan% 66.0 % 37.0-80.0 Plt 145 K/uL 150-400 RBC 3.21 M/uL 3.60-5.00 RDW 16.5 % 11.6-14.8 WBC 5.83 K/uL 5.00-10.00 Ryan 3.85 K/uL 2.00-6.90 [place] 0.6 K/uL 0.0-0.9 Baso 0.0 K/uL 0.0-0.2 CBC with Auto Diff - 07/19/18 13:45 Baso% 0.50 % 0.00-2.50 Eos 0.4 K/uL 0.0-0.7 Eos% 8.4 % 0.0-7.0 Hct 28.9 % 36.0-46.0 Hgb 8.9 g/dL 13.0-15.0 Lym 0.96 K/uL 0.60-3.40 Lym% 22.5 % 10.0-50.0 MCH 29.5 pg 27.0-31.0 MCHC 30.8 g/dL 32.0-36.0 MCV 95.7 fL 80.0-97.0 [place]% 11.5 % 0.0-12.0 MPV 10.8 fL 7.4-10.0 Ryan% 57.1 % 37.0-80.0 Plt 129 K/uL 150-400 RBC 3.02 M/uL 3.60-5.00 RDW 16.5 % 11.6-14.8 WBC 4.27 K/uL 5.00-10.00 Ryan 2.44 K/uL 2.00-6.90 [place] 0.5 K/uL 0.0-0.9 Baso 0.0 K/uL 0.0-0.2 CBC with Auto Diff - 07/26/18 14:56 Baso% 0.70 % 0.00-2.50 Eos 0.4 K/uL 0.0-0.7 Eos% 8.1 % 0.0-7.0 Hct 29.0 % 36.0-46.0 Hgb 9.1 g/dL 13.0-15.0 Lym 0.97 K/uL 0.60-3.40 Lym% 21.3 % 10.0-50.0 MCH 30.2 pg 27.0-31.0 MCHC 31.4 g/dL 32.0-36.0 MCV 96.3 fL 80.0-97.0 [place]% 12.3 % 0.0-12.0 MPV 11.9 fL 7.4-10.0 Ryan% 57.6 % 37.0-80.0 Plt 129 K/uL 150-400 RBC 3.01 M/uL 3.60-5.00 RDW 16.5 % 11.6-14.8 WBC 4.55 K/uL 5.00-10.00 Ryan 2.62 K/uL 2.00-6.90 [place] 0.6 K/uL 0.0-0.9 Baso 0.0 K/uL 0.0-0.2 CBC with Auto Diff - 07/29/18 12:40 Baso% 0.50 % 0.00-2.50 Eos 0.3 K/uL 0.0-0.7 Eos% 7.2 % 0.0-7.0 Hct 27.5 % 36.0-46.0 Hgb 8.8 g/dL 13.0-15.0 Lym 0.93 K/uL 0.60-3.40 Lym% 24.7 % 10.0-50.0 MCH 30.7 pg 27.0-31.0 MCHC 32.0 g/dL 32.0-36.0 MCV 95.8 fL 80.0-97.0 [place]% 11.4 % 0.0-12.0 MPV 11.6 fL 7.4-10.0 Ryan% 56.2 % 37.0-80.0 Plt 114 K/uL 150-400 RBC 2.87 M/uL 3.60-5.00 RDW 16.0 % 11.6-14.8 WBC 3.77 K/uL 5.00-10.00 Ryan 2.12 K/uL 2.00-6.90 [place] 0.4 K/uL 0.0-0.9 Baso 0.0 K/uL 0.0-0.2 Complete blood count (CBC) with automate d [...] culture - 11/02/18 16:20 Bacterial blood culture [facility] Influenza virus A and B antigen detectio n - 11/02/18 16:43 FLU RESULT NEGATIVE FOR INFLUENZA A AND B ANTIGENS BY IA NR PT panel in platelet poor plasma by [...] culture - 11/02/18 17:38 Bacterial urine culture [id number] NRG COLONY COUNT >100,000/ML NRG FTX;REPORTABLE SUSCEPTIBILITY [...] ncentration <= NRG Nitrofurantoin susceptibility test by ia nimum inhibitory concentration <= NRG Amoxicillin and [...] ABO+Rh group AP NRG Transfusion band number [id number] NRG Blood group antibody screen NEGATIVE NR [...] pa myron - 12/27/18 13:45 WRISTBAND NUMBER [id number] NRG ABO+Rh group AP NRG Blood group [...] culture - 12/27/18 17:10 Bacterial urine culture [id number] NRG COLONY COUNT >100,000/ML NRG FTX;REPORTABLE SUSCEPTIBILITY [...] ENTRY 3 ROB. NO SUSCEPTIBILITY PERFOR MED [facility] Capillary blood glucose measurement by g [...] pa myron - 04/11/19 16:40 WRISTBAND NUMBER [id number] NRG ABO+Rh group AP NRG Blood group [...] culture - 06/05/19 16:55 Bacterial urine culture [id number] NRG COLONY COUNT >100,000/ML NRG FTX;REPORTABLE (PROBABLE COAG NEGATIVE STAPH) NRG FREE TEXT ENTRY 2 (PRELIM RAPID ID TESTING AT [facility] 06/06) NRG FREE TEXT ENTRY 3 [...] 7-25 CREATININE 2.10 mg/dL 0.50-0.99 eGFR NON-AFR. HAITIAN 25 mL/min/1.73m2 > OR = 60 eGFR [...] pa myron - 06/27/19 14:55 WRISTBAND NUMBER [id number] NRG ABO+Rh group AP NRG Blood group [...] pa myron - 07/18/19 11:04 WRISTBAND NUMBER [id number] NRG ABO+Rh group AP NRG Blood group [...] pa myron - 07/27/19 15:48 WRISTBAND NUMBER [id number] NRG ABO+Rh group AP NRG Blood group [...] Blood type T Indirect antibody screen [facility] - 09/05/19 11:02 WRISTBAND NUMBER [id number] NRG ABO+Rh group AP NRG Blood group [...] Blood type T Indirect antibody screen [facility] - 09/12/19 10:54 WRISTBAND NUMBER [id number] [facility] ABO+Rh group AP NR Blood group antibody screen NEGATIVE NR G [id number] - 09/19/19 10:55 [id number] SPECIMEN AVAILABLE [facility] Whole blood basic metabolic panel - 09/13 [...] calculation of estimated glomerular filtration rate 22 NR Serum or plasma glucose measurement (mass/volume) 123 [...] Automated blood platelet mean volume measurement 10.0 [[facility]] 7.4-10.4 Automated blood neutrophils/100 leukocytes 57 % [...] Automated erythrocyte mean corpuscular volume 97 [ [facility]] 80-99 Automated erythrocyte mean corpuscular h emoglobin (mass per erythrocyte) 31 pg 25-34 Automated erythrocyte mean corpuscular h emoglobin concentration measurement (mass/volume) 32 g/dL 32-36 Automated erythrocyte distribution width ratio 16. 3 % 10.0- 14.5 Automated blood platelet count (count/volume) 128 10*3/uL 130-400 Automated blood platelet mean volume measurement 10.7 [fo_us] 7.4-10.4 Automated blood neutrophils/100 leukocytes 56 % [...] T Indirect antibody screen pa myron - 09/27/19 18:50 WRISTBAND NUMBER [id number] NRG ABO+Rh group AP NRG Blood group [...] T Indirect antibody screen pa myron - 10/14/19 10:40 WRISTBAND NUMBER [id number] NRG ABO+Rh group AP NRG Blood group [...] 0.35-4.94 Serum or plasma thyroxine (T4) free ejnny urement (mass/volume) - 10/15/19 11:15 Serum or [...] culture - 10/15/19 12:30 Bacterial urine culture [id number] NRG COLONY COUNT >100,000/ML NRG RAPID ID PREL RAPID ID TEST AT [facility] 10/15 9:25 NRG ID CONFIRMATION RML CONFIRMED [...] pa myron - 10/21/19 09:50 WRISTBAND NUMBER [id number] NRG ABO+Rh group AP NR Blood group antibody screen NEGATIVE NR [...] 0 8:40 RED CELLS LEUKO REDUCED AS1 N OT AVAILABLE NRG Blood type T Indirect antibody screen pa myron - 10/26/19 08:40 WRISTBAND NUMBER [id number] NR ABO+Rh group AP NRG Blood group antibody screen NEGATIVE NR G Bacterial blood culture - 10/26/19 08:40 QUANTITY OF GROWTH Isolated [facility] Bacterial blood culture [id number] [facility] Lipid 1996 panel - 10/26/19 08:50 Serum or plasma triglyceride measurement (mass/volume) 117 mg/dL <150 Serum or plasma cholesterol measurement (mass/volume) 246 mg/dL < 200 Serum or plasma cholesterol in HDL measurement (mass/v olume) 73 mg/dL 40-60 Cholesterol in LDL [mass/volume] in serum or plasma by direct assay 165 mg/dL 1-129 Serum or plasma cholesterol in VLDL measurement (mass/ volume) 23 mg/dL 5-40 Complete urinalysis with reflex to cultu re [...] CULTURE PENDING NRG Bacterial urine culture - 10/26/19 08:55 Bacterial urine culture [id number] NRG COLONY COUNT >100,000/ML NRG SUSCEPTIBILITY NO FURTHER TESTING NRG RAPID ID PRELIM RAPID ID BY [facility] 10-27-19, 4245 NRG ID CONFIRMATION ID CONFIRMED 10-27-19,2986. NRG Arterial blood gas measurement - 0 [...] G Measurement of body temperature 36.1 NRG Bacterial blood culture - 10/26/19 09:40 Bacterial blood culture NG NRG Serum or plasma lactate measurement (mol es/volume) - 10/26/19 10:55 Serum or plasma lactate measurement (moles/volume) 3.63 mmol/L 0.50-2.00 Capillary blood glucose measurement by g lucometer (mass/volume) - 10/26/19 10:58 Capillary blood glucose measurement by glucometer (mas s/volume) 391 mg/dL 70-110 Methicillin resistant Staphylococcus aur eus (MRSA) screening culture - 10/26/19 11:30 Methicillin resistant Staphylococcus aureus (MRSA) scr eening culture NEG NRG Serum or plasma lactate measurement (mol es/volume) - 10/26/19 12:50 Serum or plasma lactate measurement (moles/volume) 2.30 mmol/L 0.50-2.00 Whole blood hemoglobin and hematocrit pa myron - 10/26/19 12:50 Venous blood hemoglobin measurement (mass/volume) 8.9 g/dL 11.5-16.0 Blood hematocrit (volume fraction) 28 % 35-52 Capillary blood glucose measurement by g lucometer (mass/volume) - 10/26/19 14:02 Capillary blood glucose measurement by glucometer (mas s/volume) 334 mg/dL 70-110 Complete blood count (CBC) with automate d white blood cell (WBC) differential - 10/27/19 13:00 Blood leukocytes automated count (number/volume) 6.7 10*3/uL 4.3-11.0 Blood erythrocytes automated count (number/volume) 2.86 10*6/uL 4.35-5.85 Venous blood hemoglobin measurement (mass/volume) 8.6 g/dL 11.5-16.0 Blood hematocrit (volume fraction) 27 % 35-52 Automated erythrocyte mean corpuscular volume 94 [ foz_us] 80-99 Automated erythrocyte mean corpuscular h emoglobin (mass per erythrocyte) 30 pg 25-34 Automated erythrocyte mean corpuscular h emoglobin concentration measurement (mass/volume) 32 g/dL 32-36 Automated erythrocyte distribution width ratio 13. 4 % 10.0- 14.5 Automated blood platelet count (count/volume) 176 10*3/uL 130-400 Automated blood platelet mean volume measurement 10.1 [foz_us] 7.4-10.4 Automated blood neutrophils/100 leukocytes 70 % 42-75 Automated blood lymphocytes/100 leukocytes 15 % 12-44 Blood monocytes/100 leukocytes 13 % 0-12 Automated blood eosinophils/100 leukocytes 1 % 0-10 Automated blood basophils/100 leukocytes 0 % 0-10 Blood neutrophils automated count (number/volume) 4.7 10*3 1.8-7.8 Blood lymphocytes automated count (number/volume) 1.0 10*3 1.0-4.0 Blood monocytes automated count (number/volume) 0. 9 10*3 0.0-1.0 Automated eosinophil count 0.1 10*3/uL 0 .0-0.3 Automated blood basophil count (count/volume) 0.0 10*3/uL 0.0-0.1 Comprehensive metabolic panel - 10/27/19 13:00 Serum or plasma sodium measurement (moles/volume) 137 mmol/L 135-145 Serum or plasma potassium measurement (moles/volume) 4.0 mmol/L 3.6-5.0 Serum or plasma chloride measurement (moles/volume) 96 mmol/L 98-107 Carbon dioxide 31 mmol/L 21-32 Serum or plasma anion gap determination (moles/volume) 10 mmol/L 5-14 Serum or plasma urea nitrogen measurement (mass/volume ) 50 mg/dL 7-18 Serum or plasma creatinine measurement (mass/volume) 2.65 mg/dL 0.60-1.30 Serum or plasma urea nitrogen/creatinine mass ratio 19 NRG Serum or plasma creatinine measurement w ith calculation of estimated glomerular filtration rate 18 NRG Serum or plasma glucose measurement (mass/volume) 366 mg/dL 70-105 Serum or plasma calcium measurement (mass/volume) 9.3 mg/dL 8.5-10.1 Serum or plasma total bilirubin measurement (mass/volu me) 0.8 mg/dL 0.1-1.0 Serum or plasma alkaline phosphatase momo surement (enzymatic activity/volume) 66 U/L 40-136 Serum or plasma aspartate aminotransfera se measurement (enzymatic activity/volume) 18 U/L 5-34 Serum or plasma alanine aminotransferase measurement (enzymatic activity/volume) 8 U/L 0-55 Serum or plasma protein measurement (mass/volume) 7.0 g/dL 6.4-8.2 Serum or plasma albumin measurement (mass/volume) 3.6 g/dL 3.2-4.5 CALCIUM CORRECTED 9.6 mg/dL 8.5-10.1 Ammonia - 10/27/19 18:26 Ammonia 78 umol/L 11-32 Capillary blood glucose measurement by g lucometer (mass/volume) - 10/27/19 20:14 Capillary blood glucose measurement by glucometer (mas s/volume) 346 mg/dL 70-110 Capillary blood glucose measurement by g lucometer (mass/volume) - 10/28/19 05:52 Capillary blood glucose measurement by glucometer (mas s/volume) 288 mg/dL 70-110 Complete blood count (CBC) with automate d white blood cell (WBC) differential - 10/28/19 06:05 Blood leukocytes automated count (number/volume) 4.4 10*3/uL 4.3-11.0 Blood erythrocytes automated count (number/volume) 2.62 10*6/uL 4.35-5.85 Venous blood hemoglobin measurement (mass/volume) 8.0 g/dL 11.5-16.0 Blood hematocrit (volume fraction) 25 % 35-52 Automated erythrocyte mean corpuscular volume 95 [ foz_us] 80-99 Automated erythrocyte mean corpuscular h emoglobin (mass per erythrocyte) 31 pg 25-34 Automated erythrocyte mean corpuscular h emoglobin concentration measurement (mass/volume) 32 g/dL 32-36 Automated erythrocyte distribution width ratio 13. 1 % 10.0- 14.5 Automated blood platelet count (count/volume) 143 10*3/uL 130-400 Automated blood platelet mean volume measurement 10.3 [foz_us] 7.4-10.4 Automated blood neutrophils/100 leukocytes 51 % 42-75 Automated blood lymphocytes/100 leukocytes 27 % 12-44 Blood monocytes/100 leukocytes 17 % 0-12 Automated blood eosinophils/100 leukocytes 4 % 0-10 Automated blood basophils/100 leukocytes 1 % 0-10 Blood neutrophils automated count (number/volume) 2.2 10*3 1.8-7.8 Blood lymphocytes automated count (number/volume) 1.2 10*3 1.0-4.0 Blood monocytes automated count (number/volume) 0. 7 10*3 0.0-1.0 Automated eosinophil count 0.2 10*3/uL 0 .0-0.3 Automated blood basophil count (count/volume) 0.0 10*3/uL 0.0-0.1 Comprehensive metabolic panel - 10/28/19 06:05 Serum or plasma sodium measurement (moles/volume) 138 mmol/L 135-145 Serum or plasma potassium measurement (moles/volume) 3.5 mmol/L 3.6-5.0 Serum or plasma chloride measurement (moles/volume) 99 mmol/L 98-107 Carbon dioxide 26 mmol/L 21-32 Serum or plasma anion gap determination (moles/volume) 13 mmol/L 5-14 Serum or plasma urea nitrogen measurement (mass/volume ) 47 mg/dL 7-18 Serum or plasma creatinine measurement (mass/volume) 2.36 mg/dL 0.60-1.30 Serum or plasma urea nitrogen/creatinine mass ratio 20 NRG Serum or plasma creatinine measurement w ith calculation of estimated glomerular filtration rate 21 NRG Serum or plasma glucose measurement (mass/volume) 255 mg/dL 70-105 Serum or plasma calcium measurement [...] measurement (mass/volume) 3.4 g/dL 3.2-4.5 CALCIUM CORRECTED 9.2 mg/dL 8.5-10.1 Capillary blood glucose measurement by g lucometer (mass/volume) - 10/28/19 10:58 Capillary blood glucose measurement by glucometer (mas s/volume) 477 mg/dL 70-110 Capillary blood glucose measurement by g lucometer (mass/volume) - 10/28/19 16:04 Capillary blood glucose measurement by glucometer (mas s/volume) 397 mg/dL 70-110 Capillary blood glucose measurement by g lucometer (mass/volume) - 10/28/19 19:30 Capillary blood glucose measurement by glucometer (mas s/volume) 309 mg/dL 70-110 Complete blood count (CBC) with automate d white blood cell (WBC) differential - 10/29/19 06:18 Blood leukocytes automated count (number/volume) 3.6 10*3/uL 4.3-11.0 Blood erythrocytes automated count (number/volume) 2.32 10*6/uL 4.35-5.85 Venous blood hemoglobin measurement (mass/volume) 7.0 g/dL 11.5-16.0 Blood hematocrit (volume fraction) 22 % 35-52 Automated erythrocyte mean corpuscular volume 94 [ foz_us] 80-99 Automated erythrocyte mean corpuscular h emoglobin (mass per erythrocyte) 30 pg 25-34 Automated erythrocyte mean corpuscular h emoglobin concentration measurement (mass/volume) 32 g/dL 32-36 Automated erythrocyte distribution width ratio 12. 7 % 10.0- 14.5 Automated blood platelet count (count/volume) 114 10*3/uL 130-400 Automated blood platelet mean volume measurement 10.3 [foz_us] 7.4-10.4 Automated blood neutrophils/100 leukocytes 55 % 42-75 Automated blood lymphocytes/100 leukocytes 24 % 12-44 Blood monocytes/100 leukocytes 13 % [...] 0.0 10*3/uL 0.0-0.1 Comprehensive metabolic panel - 10/29/19 06:18 Serum or plasma sodium measurement (moles/volume) 134 mmol/L 135-145 Serum or plasma potassium measurement (moles/volume) 3.7 mmol/L 3.6-5.0 Serum or plasma chloride measurement (moles/volume) 99 mmol/L 98-107 Carbon dioxide 25 mmol/L 21-32 Serum or plasma anion gap determination (moles/volume) 10 mmol/L 5-14 Serum or plasma urea nitrogen measurement (mass/volume ) 39 mg/dL 7-18 Serum or plasma creatinine measurement (mass/volume) 1.97 mg/dL 0.60-1.30 Serum or plasma urea nitrogen/creatinine mass ratio 20 NRG Serum or plasma creatinine measurement w ith calculation of estimated glomerular filtration rate 26 NRG Serum or plasma glucose measurement (mass/volume) 254 mg/dL 70-105 Serum or plasma calcium measurement [...] measurement (mass/volume) 3.0 g/dL 3.2-4.5 CALCIUM CORRECTED 8.8 mg/dL 8.5-10.1 Capillary blood glucose measurement by g lucometer (mass/volume) - 10/29/19 11:55 Capillary blood glucose measurement by glucometer (mas s/volume) 292 mg/dL 70-110 Comprehensive metabolic panel - 11/03/19 14:52 Serum or plasma sodium measurement (moles/volume) 133 mmol/L 135-145 Serum or plasma potassium measurement (moles/volume) 4.3 mmol/L 3.6-5.0 Serum or plasma chloride measurement (moles/volume) 94 mmol/L 98-107 Carbon dioxide 30 mmol/L 21-32 Serum or plasma anion gap determination (moles/volume) 9 mmol/L 5-14 Serum or plasma urea nitrogen measurement (mass/volume ) 43 mg/dL 7-18 Serum or plasma creatinine measurement (mass/volume) 1.75 mg/dL 0.60-1.30 Serum or plasma urea nitrogen/creatinine mass ratio 25 NRG Serum or plasma creatinine measurement w ith calculation of estimated glomerular filtration rate 29 NRG Serum or plasma glucose measurement (mass/volume) 324 mg/dL 70-105 Serum or plasma calcium measurement (mass/volume) 8.9 mg/dL 8.5-10.1 Serum or plasma total bilirubin measurement (mass/volu me) 0.5 mg/dL 0.1-1.0 Serum or plasma alkaline phosphatase momo surement (enzymatic activity/volume) 58 U/L 40-136 Serum or plasma aspartate aminotransfera se measurement (enzymatic activity/volume) 12 U/L 5-34 Serum or plasma alanine aminotransferase measurement (enzymatic activity/volume) 8 U/L 0-55 Serum or plasma protein measurement (mass/volume) 6.7 g/dL 6.4-8.2 Serum or plasma albumin measurement (mass/volume) 3.3 g/dL 3.2-4.5 CALCIUM CORRECTED 9.5 mg/dL 8.5-10.1 Blood lactic acid measurement (moles/vol ume) - 11/03/19 14:52 Blood lactic acid measurement (moles/volume) 1.88 mmol/L 0.50-2.00 PT panel in platelet poor plasma by coag ulation assay - 11/03/19 14:52 Prothrombin time (PT) in platelet poor plasma by coagu lation assay 14.9 s 12.2-14.7 INR in platelet poor plasma or blood by coagulation as say 1.1 0.8-1.4 Activated partial thromboplastin time (a PTT) in platelet poor plasma bycoagulation assay - 11/03/19 14:52 Activated partial thromboplastin time (a PTT) in platelet poor plasma bycoagulation assay 32 s 24-35 Bacterial blood culture - 11/03/19 14:52 Bacterial blood culture NG NRG Bacterial blood culture - 11/03/19 15:22 Bacterial blood culture NG NRG Complete urinalysis with reflex to cultu re - 11/03/19 16:13 Urine color determination YELLOW NRG Urine clarity determination SL CLOUDY N RG Urine pH measurement by test strip 6.0 5-9 Specific gravity of urine by test strip <= 1.016-1.022 Urine protein assay by test strip, semi-quantitative NEGATIVE NEGATIVE Urine glucose detection by automated test strip NE GATIVE NEGATIVE Erythrocytes detection in urine sediment by light micr oscopy TRACE-I NEGATIVE Urine ketones detection by automated test strip NE GATIVE NEGATIVE Urine nitrite detection by test strip NEGATIVE NEGATIVE Urine total bilirubin detection by test strip NEGA TIVE NEGATIVE Urine urobilinogen measurement by automated test strip (mass/volume) 0.2 mg/dL < = 1.0 Urine leukocyte esterase detection by dipstick 2+ NEGATIVE Automated urine sediment erythrocyte cou nt by microscopy (number/high power field) [HPF] NRG Automated urine sediment leukocyte count by microscopy (number/high power field) [HPF] NRG Bacteria detection in urine sediment by light microsco py MODERATE NRG Squamous epithelial cells detection in u rine sediment by light microscopy 25-50 NRG Crystals detection in urine sediment by light microsco py NONE NRG Casts detection in urine sediment by light microscopy NONE NRG Mucus detection in urine sediment by light microscopy NEGATIVE NRG Complete urinalysis with reflex to culture NO NRG Bacterial urine culture - 11/03/19 16:13 Bacterial urine culture SEE COMMEN NRG COLONY COUNT . NRG SUSCEPTIBILITY RML SENT AMENDED REPORT 11/05/19 16: 05 NRG Dirithromycin susceptibility test by dis k diffusion - 11/03/19 16:13 Vancomycin susceptibility test by minimum inhibitory c oncentration <= NRG Levofloxacin susceptibility test by minimum inhibitory concentration <= NRG Ampicillin susceptibility test by minimum inhibitory c oncentration > NRG Linezolid susceptibility test by minimum inhibitory co ncentration 2 NRG Daptomycin susc CODIE 4 NRG Capillary blood glucose measurement by g lucometer (mass/volume) - 11/03/19 20:14 Capillary blood glucose measurement by glucometer (mas s/volume) 274 mg/dL 70-110 Complete blood count (CBC) with automate d white blood cell (WBC) differential - 11/04/19 04:00 Blood leukocytes automated count (number/volume) 3.6 10*3/uL 4.3-11.0 Blood erythrocytes automated count (number/volume) 2.86 10*6/uL 4.35-5.85 Venous blood hemoglobin measurement (mass/volume) 8.6 g/dL 11.5-16.0 Blood hematocrit (volume fraction) 27 % 35-52 Automated erythrocyte mean corpuscular volume 94 [ foz_us] 80-99 Automated erythrocyte mean corpuscular h emoglobin (mass per erythrocyte) 30 pg 25-34 Automated erythrocyte mean corpuscular h emoglobin concentration measurement (mass/volume) 32 g/dL 32-36 Automated erythrocyte distribution width ratio 12. 8 % 10.0- 14.5 Automated blood platelet count (count/volume) 138 10*3/uL 130-400 Automated blood platelet mean volume measurement 9.7 [foz_us] 7.4-10.4 Automated blood neutrophils/100 leukocytes 64 % 42-75 Automated blood lymphocytes/100 leukocytes 14 % 12-44 Blood monocytes/100 leukocytes 14 % [...] 0.0 10*3/uL 0.0-0.1 Comprehensive metabolic panel - 11/04/19 04:00 Serum or plasma sodium measurement (moles/volume) 135 mmol/L 135-145 Serum or plasma potassium measurement (moles/volume) 4.1 mmol/L 3.6-5.0 Serum or plasma chloride measurement (moles/volume) 98 mmol/L 98-107 Carbon dioxide 29 mmol/L 21-32 Serum or plasma anion gap determination (moles/volume) 8 mmol/L 5-14 Serum or plasma urea nitrogen measurement (mass/volume ) 37 mg/dL 7-18 Serum or plasma creatinine measurement (mass/volume) 1.78 mg/dL 0.60-1.30 Serum or plasma urea nitrogen/creatinine mass ratio 21 NRG Serum or plasma creatinine measurement w ith calculation of estimated glomerular filtration rate 29 NRG Serum or plasma glucose measurement (mass/volume) 307 mg/dL 70-105 Serum or plasma calcium measurement (mass/volume) 8.4 mg/dL 8.5-10.1 Serum or plasma total bilirubin measurement (mass/volu me) 0.6 mg/dL 0.1-1.0 Serum or plasma alkaline phosphatase momo surement (enzymatic activity/volume) 52 U/L 40-136 Serum or plasma aspartate aminotransfera se measurement (enzymatic activity/volume) 13 U/L 5-34 Serum or plasma alanine aminotransferase measurement (enzymatic activity/volume) 8 U/L 0-55 Serum or plasma protein measurement (mass/volume) 6.0 g/dL 6.4-8.2 Serum or plasma albumin measurement (mass/volume) 3.0 g/dL 3.2-4.5 CALCIUM CORRECTED 9.2 mg/dL 8.5-10.1 Capillary blood glucose measurement by g lucometer (mass/volume) - 11/04/19 09:15 Capillary blood glucose measurement by glucometer (mas s/volume) 346 mg/dL 70-110 Capillary blood glucose measurement by g lucometer (mass/volume) - 11/04/19 15:41 Capillary blood glucose measurement by glucometer (mas s/volume) 392 mg/dL 70-110 Capillary blood glucose measurement by g lucometer (mass/volume) - 11/04/19 19:40 Capillary blood glucose measurement by glucometer (mas s/volume) 405 mg/dL 70-110 Complete blood count (CBC) with automate d white blood cell (WBC) differential - 11/05/19 04:20 Blood leukocytes automated count (number/volume) 4.1 10*3/uL [...] g/dL 32-36 Automated erythrocyte distribution width ratio 12. 7 % 10.0- 14.5 Automated blood platelet count (count/volume) 174 10*3/uL 130-400 Automated blood platelet mean volume measurement 9.7 [foz_us] 7.4-10.4 Automated blood neutrophils/100 leukocytes 59 % 42-75 Automated blood lymphocytes/100 leukocytes 19 % 12-44 Blood monocytes/100 leukocytes 12 % 0-12 Automated blood eosinophils/100 leukocytes 10 % 0-10 Automated blood basophils/100 leukocytes 1 % 0-10 Blood neutrophils automated count (number/volume) 2.5 10*3 1.8-7.8 Blood lymphocytes automated count (number/volume) 0.8 10*3 1.0-4.0 Blood monocytes automated count (number/volume) 0. 5 10*3 0.0-1.0 Automated eosinophil count 0.4 10*3/uL 0 .0-0.3 Automated blood basophil count (count/volume) 0.0 10*3/uL 0.0-0.1 Comprehensive metabolic panel - 11/05/19 04:20 Serum or plasma sodium measurement (moles/volume) 137 mmol/L 135-145 Serum or plasma potassium measurement (moles/volume) 3.9 mmol/L 3.6-5.0 Serum or plasma chloride measurement (moles/volume) 101 mmol/L 98-107 Carbon dioxide 28 mmol/L 21-32 Serum or plasma anion gap determination (moles/volume) 8 mmol/L 5-14 Serum or plasma urea nitrogen measurement (mass/volume ) 32 mg/dL 7-18 Serum or plasma creatinine measurement (mass/volume) 1.48 mg/dL 0.60-1.30 Serum or plasma urea nitrogen/creatinine mass ratio 22 NRG Serum or plasma creatinine measurement w ith calculation of estimated glomerular filtration rate 36 NRG Serum or plasma glucose measurement (mass/volume) 247 mg/dL 70-105 Serum or plasma calcium measurement [...] measurement (mass/volume) 2.9 g/dL 3.2-4.5 CALCIUM CORRECTED 9.5 mg/dL 8.5-10.1 Manual absolute plasma cell count - 10/14 09/01 04:20 Blood monocytes/100 leukocytes 8 % NRG Manual blood segmented neutrophils/100 leukocytes 54 % NRG Blood band neutrophils/100 leukocytes 3 % NRG Manual blood lymphocytes/100 leukocytes 24 % NRG Manual eosinophils/100 leukocytes in nose 10 % NRG Manual blood basophils/100 leukocytes 1 % NRG Blood hypochromia detection by light microscopy MO DERATE NRG Blood microcytes detection by light microscopy SLI GHT NRG Capillary blood glucose measurement by g lucometer (mass/volume) - 11/05/19 05:25 Capillary blood glucose measurement by glucometer (mas s/volume) 220 mg/dL 70-110 Capillary blood glucose measurement by g lucometer (mass/volume) - 11/05/19 10:09 Capillary blood glucose measurement by glucometer (mas s/volume) 274 mg/dL 70-110 RED CELLS LEUKO REDUCED AS1 - 11/05/19 1 1:30 RED CELLS LEUKO REDUCED AS1 T RANSFUSED 11/05/19 1406 NRG Blood type T Indirect antibody screen pa myron - 11/05/19 11:30 WRISTBAND NUMBER [id number] NRG ABO+Rh group AP NRG Blood group antibody screen NEGATIVE NR G Capillary blood glucose measurement by g lucometer (mass/volume) - 11/05/19 15:38 Capillary blood glucose measurement by glucometer (mas s/volume) 368 mg/dL 70-110 Capillary blood glucose measurement by g lucometer (mass/volume) - 11/05/19 20:33 Capillary blood glucose measurement by glucometer (mas s/volume) 264 mg/dL 70-110 Capillary blood glucose measurement by g lucometer (mass/volume) - 11/06/19 06:16 Capillary blood glucose measurement by glucometer (mas s/volume) 117 mg/dL 70-110 Encounters ACCT No. Visit Date/Time Discharge Status Pt. Type Provider Facility Loc./Unit Complaint [id number] 07/29/2018 13:21:00 07/29/2018 23:59: 00 DIS Outpatient SHIREEN AGARWAL [id number] 07/08/2018 00:00:00 07/29/2018 10:51: 00 DIS Outpatient SHIREEN AGARWAL [id number] 07/26/2018 14:38:00 07/26/2018 23:59: 00 DIS Outpatient SHIREEN AGARWAL [id number] 07/19/2018 14:20:00 07/19/2018 23:59: 00 DIS Outpatient SHIREEN AGARWAL [id number] 07/15/2018 14:52:00 07/15/2018 23:59: 00 DIS Outpatient SHIREEN AGARWAL [id number] 07/08/2018 17:59:00 07/08/2018 23:59: 00 DIS Outpatient SHIREEN AGARWAL [id number] 03/31/2016 15:06:00 03/31/2016 23:59: 00 DIS Outpatient SELF, PHY [id number] 11/14/2019 14:18:00 020 17:09:00 DIS Emergency MALLORIE FATIMA APRN [facility] ER DIZZINESS [id number] 11/03/2019 17:08:00 11:00:00 DIS Outpatient MICHELLE GARCIA DO [facility] 4TH UTI:LLL PNA [id number] 10/26/2019 10:18:00 14:56:00 DIS Outpatient JAMES TORRES MD [facility] 4TH AMS,HYPERGLYCEMIA,DEHYDRATION,ANEMIA [id number] 10/28/2019 12:25:00 23:59:59 CLS Preadmit JAMES TORRES MD, V [facility] LAB [id number] 10/14/2019 10:19:00 00:01:00 DIS Outpatient JJ AGARWALONDINA N [facility] ONC [id number] 10/15/2019 13:20:00 21:40:00 DIS Outpatient MICHELLE GARCIA DO [facility] 4TH GENERAL WEAKNESS,FAILUR E TO THRIVE [id number] 09/27/2019 18:10:00 23:11:00 DIS Emergency KATERYNA KHOURY, MAUREEN Rashid [facility] ER SOB, HX CHF [id number] 09/26/2019 13:05:00 23:59:59 CLS Outpatient KRUNAL KHOURY PHD, LULA Clement [facility] LAB [id number] 09/12/2019 09:32:00 23:59:59 CLS Outpatient HARVEY KHOURY, NIA [facility] LAB [id number] 07/18/2019 10:26:00 00:01:00 DIS Outpatient KRUNAL KHOURY PHD, LULA Clement [facility] LAB [id number] 07/25/2019 19:00:00 13:33:00 DIS Inpatient MICHELLE GARCIA DO, V [facility] 4TH CHEST PAIN,CONFUSION,EL EV AMMONIA,SEVERE SEPSIS,PN [id number] 07/18/2019 09:29:00 23:59:59 CLS Outpatient JAMES TORRES MD [facility] RAD SCREENING [id number] 07/11/2019 07:44:00 00:01:00 DIS Outpatient SHIREEN AGARWAL V [facility] ONC [id number] 06/05/2019 18:45:00 14:45:00 DIS Inpatient KRISTINE KHOURY, TOMASA Narvaez [facility] CSD PNA, UTI, SEPSIS [id number] 05/30/2019 14:04:00 23:59:59 CLS Outpatient 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 [facility] RAD [id number] 05/16/2019 13:41:00 23:59:59 CLS Outpatient MARY ANN CRUZ 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 [facility] LAB [id number] 05/07/2019 16:12:00 19:07:00 DIS Emergency MALLORIE FATIMA 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 [facility] ER CONFUSION, FREQUENT URI NATION [id number] 04/18/2019 14:38:00 00:01:00 DIS Outpatient KRUNAL KHOURY PHD, LULA Clement [facility] LAB [id number] 04/10/2019 16:30:00 11:40:00 DIS Inpatient BRIAN KHOURY, JAMES Champion [facility] 4TH N,V,DEHYDRATION,AFIB [id number] 04/04/2019 14:01:00 00:01:00 DIS Outpatient SHIREEN AGARWAL [facility] ONC [id number] 01/10/2019 13:24:00 00:01:00 DIS Outpatient KRUNAL KHOURY PHD, LULA Clement [facility] LAB [id number] 01/05/2019 12:58:00 00:01:00 DIS Outpatient SHIREEN AGARWAL V [facility] ONC [id number] 12/27/2018 17:05:00 10:50:00 DIS Inpatient RADHA DO MICHELLE V [facility] ICU ANEMIA,HHNK [id number] 11/02/2018 20:55:00 13:05:00 DIS Inpatient RADHA WOOD, MICHELLE [facility] 4TH SEPSIS,UTI,MIDLY EVEVAT ED TROPONIN,CHEST PAIN [id number] 10/11/2018 14:32:00 23:59:59 CLS Outpatient KRUNAL KOHURY PHD, LULA Clement [facility] LAB [id number] 10/05/2018 12:42:00 15:58:00 DIS Outpatient SHIREEN AGARWAL [facility] ONC [id number] 09/27/2018 18:30:00 21:00:00 DIS Emergency KATERYNA KHOURY, MAUREEN Rashid [facility] ER SOA / SWELLING [id number] 09/22/2018 13:27:00 23:59:59 CLS Outpatient KRUNAL KHOURY PHD, LULA Clement [facility] LAB [id number] 09/17/2018 10:01:00 23:59:59 CLS Outpatient KRUNAL KHOURY PHD, LULA Clement [facility] LAB [id number] 08/30/2018 13:34:00 23:59:59 CLS Outpatient KRUNAL KHOURY PHD, LULA Clement [facility] LAB [id number] 08/17/2018 13:16:00 23:59:59 CLS Outpatient JAMES TORRES MD [facility] LAB [id number] 07/05/2018 19:14:00 23:59:59 CLS Outpatient JAMES TORRES MD [facility] LABNPT ANEMIA,CKD,DM,CIRRHOSIS [id number] 07/05/2018 08:00:00 23:59:59 CLS Outpatient SHIREEN AGARWAL [facility] HH ANEMIA DM CKD CIRRHOSIS [id number] 06/18/2018 13:15:00 09:45:00 DIS Inpatient MICHELLE GARCIA DO, V [facility] IRF CRITICAL ILLNESS MYOPAT HY [id number] 05/20/2018 12:48:00 00:01:00 DIS Outpatient MELIZA KHOURY, BRANDEN Chapman [facility] ONC [id number] 05/30/2018 04:03:00 16:50:00 DIS Inpatient BRIAN KHOURY, JAMES Champion [facility] ICU FALL [id number] 05/28/2018 13:48:00 17:15:00 DIS Emergency TACOS KHOURY, MODESTO Barrett [facility] ER SOB [id number] 05/24/2018 13:02:00 15:25:00 DIS Inpatient KRISTINE KHOURY, TOMASA Narvaez [facility] 4TH ANEMIA,FEVER,NAUSEA,VOM ITING [id number] 05/05/2018 09:11:00 16:55:00 DIS Outpatient RACHELE JEFFERSON [facility] SDC POOR VENOUS ACC ESS I87.8 [id number] 04/29/2018 11:33:00 23:59:59 CLS Outpatient KELLY KHOURY, TUBRodrigo [facility] LAB [id number] 03/20/2018 12:20:00 23:59:59 CLS Outpatient MACIEL WELCH APRN [facility] RAD PAIN IN LEFT LE G [id number] 03/09/2018 13:19:00 018 00:01:00 DIS Outpatient MELIZA KHOURY, BRANDEN Chapman [facility] ONC [id number] 02/10/2018 13:30:00 018 14:53:00 DIS Outpatient SHIREEN AGARWAL [facility] ONC [id number] 02/12/2018 11:00:00 23:59:59 CLS Preadmit SABRINA ROSSI DO [facility] SDC POOR VENOUS ACCESS [id number] 02/11/2018 00:30:00 018 16:54:00 DIS Inpatient JAMES TORRES MD [facility] ICU CHEST PAIN,UNSTABLE ANG MAYANK;SEVERE ANEMIA;CHF [id number] 02/11/2018 06:53:00 018 23:59:59 CLS Outpatient SABRINA ROSSI DO [facility] PREOP POOR VENOUS ACCESS [id number] 01/12/2018 13:40:00 018 23:59:59 CLS Outpatient SHIREEN AGARWAL [facility] ONC [id number] 11/17/2017 14:55:00 23:59:59 CLS Outpatient ERMIAS MENDOZA MD [facility] LAB [id number] 11/06/2017 15:30:00 018 03:52:00 DIS Inpatient TOMASA CARMONA MD [facility] 4TH ANEMIA/TRANSFUSION [id number] 11/06/2017 12:00:00 018 23:59:59 CLS Outpatient KIERAN KHOURY, Wei BRANDON [facility] LAB [id number] 10/20/2017 11:12:00 018 00:01:00 DIS Outpatient SHIREEN AGARWAL [facility] ONC [id number] 10/03/2017 23:50:00 018 13:33:00 DIS Inpatient TOMASA CARMONA MD [facility] 4TH ANEMIA,CHEST PAIN, A FI B, HYPERGLYCEMIA, [id number] 09/12/2017 22:15:00 018 14:45:00 DIS Inpatient JAMES TORRES MD [facility] ICU CHEST PAIN [id number] 07/17/2017 14:09:00 018 10:19:00 DIS Outpatient BRANDEN HAIDER MD, V [facility] ONC [id number] 07/17/2017 09:59:00 018 13:30:00 DIS Outpatient CARMINE BORRERO DO [facility] ENDO GI BLEED [id number] 07/16/2017 15:00:00 018 15:00:00 CAN Preadmit CARMINE BORRERO DO, V [facility] PREOP GI BLEED [id number] 07/01/2017 12:12:00 018 09:04:00 DIS Outpatient SHIREEN AGARWAL V [facility] ONC [id number] 06/16/2017 10:05:00 018 00:01:00 DIS Outpatient SHIREEN AGARWAL [facility] ONC [id number] 06/14/2017 14:39:00 017 23:59:59 CLS Outpatient RACHELE JEFFERSON [facility] LAB ANEMIA,SHORTNES S OF BREATH [id number] 05/21/2017 12:23:00 017 23:59:59 CLS Outpatient SABRINA ROSIS DO [facility] RAD ABD PAIN, ANEMIA [id number] 05/12/2017 09:09:00 017 23:59:59 CLS Outpatient JAMES TORRES MD [facility] LAB [id number] 04/07/2017 06:54:00 017 23:59:59 CLS Outpatient SABRINA ROSSI DO [facility] ENDO INFLAMMATION [id number] 04/06/2017 11:00:00 017 11:22:00 DIS Outpatient SABRINA ROSSI DO [facility] PREOP CAPSULE ENDO [id number] 03/04/2017 10:21:00 017 00:01:00 DIS Outpatient SHIREEN AGARWAL [facility] ONC [id number] 03/02/2017 07:20:00 017 23:59:59 CLS Outpatient SABRINA ROSSI DO [facility] ENDO ANEMIA [id number] 02/23/2017 05:40:00 017 11:52:00 DIS Outpatient SABRINA ROSSI DO [facility] PREOP ANEMIA [id number] 01/29/2017 09:44:00 017 15:52:00 DIS Inpatient JAMES TORRES MD [facility] ICU A-FIB WITH RVR [id number] 01/02/2017 06:29:00 017 08:45:00 DIS Outpatient SABRINA ROSSI DO [facility] ENDO ANEMIA; OCCULT POSITIVE STOOLS [id number] 12/31/2016 11:10:00 017 10:01:00 DIS Outpatient MACIEL WELCH APRN [facility] LAB ANEMIA [id number] 12/31/2016 12:53:00 017 23:59:59 CLS Outpatient SABRINA ROSSI DO [facility] PREOP ANEMIA, OCCULT POSITIVE STOOL [id number] 12/17/2016 09:30:00 017 23:59:59 CLS Preadmit Wei ALCARAZ MD [facility] CARD AFIB,PSVT [id number] 10/10/2016 08:46:00 017 00:01:00 DIS Outpatient Wei ALCARAZ MD [facility] CARD IB,PSVT [id number] 10/24/2016 08:37:00 017 00:01:00 DIS Outpatient SHIREEN AGARWAL [facility] ONC [id number] 10/24/2016 08:41:00 017 23:59:59 CLS Outpatient BERNY ALCARAZ MD [facility] LAB [id number] 09/15/2016 12:15:00 017 23:59:59 CLS Outpatient BERNY ALCARAZ MD [facility] LAB [id number] 11/27/2015 15:28:00 016 00:01:00 DIS Outpatient SHIREEN AGARWAL [facility] ONC [id number] 10/04/2015 13:17:00 23:59:59 CLS Outpatient ANY SHIREEN Chapman [facility] ONC [id number] 06/12/2015 11:11:00 00:01:00 DIS Outpatient ANY SHIREEN Chapman [facility] ONC [id number] 06/04/2015 15:34:00 23:59:59 CLS Preadmit 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 [facility] ONC [id number] 03/29/2015 11:35:00 23:59:59 CLS Outpatient WU DIOR MD [facility] LAB [id number] 03/15/2015 14:54:00 23:59:59 CLS Outpatient WU DIOR MD [facility] LAB [id number] 11/23/2014 13:42:00 00:01:00 DIS Outpatient SHIREEN AGARWAL [facility] ONC [id number] 10/05/2014 13:42:00 23:59:59 CLS Outpatient CLAUDE GABRIEL MD [facility] LAB [id number] 10/05/2014 12:00:00 23:59:59 CLS Outpatient CLAUDE GABRIEL MD [facility] RAD POST SPOT URINE [id number] 07/17/2014 14:31:00 23:59:59 CLS Outpatient SHIREEN AGARWAL [facility] ONC [id number] 05/24/2014 13:33:00 23:59:59 CLS Outpatient LINDA KHOURY FACC, ARNIE SHAW CC DS [facility] LAB [id number] 04/03/2014 14:00:00 014 00:01:00 DIS Outpatient SHIREEN AGARWAL V [facility] ONC [id number] 03/24/2014 06:46:00 09:55:00 DIS Outpatient TONIE CRAWFORD MD [facility] SDC SCREENING; ANEMIA [id number] 03/23/2014 07:22:00 23:59:59 CLS Outpatient TONIE CRAWFORD MD [facility] PREOP SCREENING; ANEMIA [id number] 03/02/2014 09:01:00 014 16:00:00 DIS Outpatient LINDA KHOURY FACC, ALI FACP CC DS [facility] CATH CP,CAD,HTN [id number] 02/07/2014 07:52:00 23:59:59 CLS Outpatient LINDA KHOURY FACC, ALI FACP CC DS [facility] CARD AFIB [id number] 03/31/2013 08:55:00 23:59:59 CLS Outpatient CHICHI RIVAS [facility] RAD MID EPIGASTRIC PAIN [id number] 11/11/2019 11:44:[address] Outpatient SHIREEN AGARWAL [facility] [place] ONC [id number] 10/05/2014 11:59:00 Document Registration [id number] 10/05/2014 11:59:00 Document Registration [id number] 10/05/2014 11:59:00 Document Registration [id number] 08/24/2014 14:23:00 Document Registration [id number] 08/21/2014 07:51:00 Document Registration [id number] 04/03/2012 14:05:00 Document Registration [id number] 11/09/2019 13:20:00 11/09/2019 23:59: 59 CLS Outpatient JAMES TORRES [facility] [id number] 06/20/2019 13:20:00 Document Registration [id number] 01/03/2019 15:20:00 Document Registration [id number] 03/01/2018 12:00:00 Document Registration [id number] 05/18/2017 16:00:00 Document Registration
== END 2019-11-14 17:09 | disposition home or self-care (01) ==
LOC: EDUNIT# 14:15 → ER 14:18
DX: D64.89 Other specified anemias (principal); N39.0 Urinary tract infection, site not specified; I11.0 Hypertensive heart disease with heart failure; I50.9 Heart failure, unspecified; E11.9 Type 2 diabetes mellitus without complications; I25.2 Old myocardial infarction; I25.10 Atherosclerotic heart disease of native coronary artery without angina pectoris; K21.9 Gastro-esophageal reflux disease without esophagitis; E66.9 Obesity, unspecified; E03.9 Hypothyroidism, unspecified; F41.9 Anxiety disorder, unspecified; Z88.2 Allergy status to sulfonamides; Z88.1 Allergy status to other antibiotic agents; Z88.8 Allergy status to other drugs, medicaments and biological substances; Z79.4 Long term (current) use of insulin; Z87.891 Personal history of nicotine dependence; Z95.1 Presence of aortocoronary bypass graft; Z68.38 Body mass index [BMI] 38.0-38.9, adult; Z95.5 Presence of coronary angioplasty implant and graft; Z82.49 Family history of ischemic heart disease and other diseases of the circulatory system; Z80.8 Family history of malignant neoplasm of other organs or systems
CPT/HCPCS: 36415; 80053; 81000; 85025; 87088

== ENCOUNTER → 2019-11-17 | Outpatient (CLI) | payer MEDICARE ==
[2019-11-17 11:22] LABS: BILIRUBIN,URINE NEGATIVE (NEGATIVE); CLARITY,URINE CLEAR; COLOR,URINE YELLOW; GLUCOSE, URINE (UA) NEGATIVE (NEGATIVE); KETONES,URINE NEGATIVE (NEGATIVE); LEUKOCYTE ESTERASE ,URINE TRACE (NEGATIVE); NITRITE,URINE NEGATIVE (NEGATIVE); PROTEIN,URINE NEGATIVE (NEGATIVE)
[2019-11-17 11:34] LABS: BASOPHILS % (AUTO) 1 % (0-10); EOSINOPHILS # (AUTO) 0.3 10^3/uL (0.0-0.3); EOSINOPHILS % (AUTO) 7 % (0-10); HEMATOCRIT 28 % (35-52); HEMOGLOBIN 8.6 G/DL (11.5-16.0); LYMPHOCYTES # (AUTO) 0.7 X 10^3 (1.0-4.0); LYMPHOCYTES % (AUTO) 16 % (12-44); MEAN CORPUSCULAR HEMOGLOBIN 29 PG (25-34); MEAN CORPUSCULAR HGB CONC 31 G/DL (32-36); MEAN CORPUSCULAR VOLUME 94 FL (80-99); MEAN PLATELET VOLUME 9.5 FL (7.4-10.4); MONOCYTES # (AUTO) 0.4 X 10^3 (0.0-1.0); MONOCYTES % (AUTO) 10 % (0-12); NEUTROPHILS # (AUTO) 2.6 X 10^3 (1.8-7.8); NEUTROPHILS % (AUTO) 67 % (42-75); PLATELET COUNT 191 10^3/uL (130-400); RED CELL DISTRIBUTION WIDTH 13.6 % (10.0-14.5)
[2019-11-17 11:38] LABS: RBC,URINE RARE /HPF; WBC,URINE 0-2 /HPF
[2019-11-17 11:39] LABS: BACTERIA,URINE TRACE /HPF; YEAST,URINE FEW /HPF
[2019-11-17 11:41] LABS: URINE CREATININE FOR RATIO 51 MG/DL (30-125); URINE PROTEIN FOR RATIO ONLY < 6 MG/DL (6-12)
[2019-11-17 11:49] LABS: ALBUMIN 3.5 GM/DL (3.2-4.5); CALCIUM 9.2 MG/DL (8.5-10.1); CREATININE SERUM 2.28 MG/DL (0.60-1.30); PHOSPHORUS 3.3 MG/DL (2.3-4.7); POTASSIUM 4.6 MMOL/L (3.6-5.0)
== END ==
LOC: LAB 10:54
PROVIDERS: ATTEND Internal Medicine Nephrology
DX: E11.22 Type 2 diabetes mellitus with diabetic chronic kidney disease (principal); D64.9 Anemia, unspecified; I12.9 Hypertensive chronic kidney disease with stage 1 through stage 4 chronic kidney disease, or unspecified chronic kidney disease; N18.9 Chronic kidney disease, unspecified; E78.49 Other hyperlipidemia
CPT/HCPCS: 36415; 80069; 81000; 82306; 82570; 82728; 83540; 83970; 84156; 84550; 85025

== ENCOUNTER 2019-11-30 12:49 | Emergency (ER) | payer MEDICARE ==
[~2019-11-30] VITALS: Ht 162.5 cm; Wt 113.6 kg
[2019-11-30 13:07] LABS: BASOPHILS % (AUTO) 0 % (0-10); EOSINOPHILS # (AUTO) 0.2 10^3/uL (0.0-0.3); EOSINOPHILS % (AUTO) 4 % (0-10); HEMATOCRIT 30 % (35-52); HEMOGLOBIN 9.6 G/DL (11.5-16.0); LYMPHOCYTES # (AUTO) 0.8 X 10^3 (1.0-4.0); LYMPHOCYTES % (AUTO) 14 % (12-44); MEAN CORPUSCULAR HEMOGLOBIN 29 PG (25-34); MEAN CORPUSCULAR HGB CONC 32 G/DL (32-36); MEAN CORPUSCULAR VOLUME 91 FL (80-99); MEAN PLATELET VOLUME 10.6 FL (7.4-10.4); MONOCYTES # (AUTO) 0.4 X 10^3 (0.0-1.0); MONOCYTES % (AUTO) 8 % (0-12); NEUTROPHILS % (AUTO) 74 % (42-75); PLATELET COUNT 191 10^3/uL (130-400); RED CELL DISTRIBUTION WIDTH 13.5 % (10.0-14.5); WHITE BLOOD COUNT 5.4 10^3/uL (4.3-11.0)
--- NOTE | 2019-11-30 13:07 | ED General ---
General Stated Complaint: GENERAL PAIN Source of Information: Patient, EMS Exam Limitations: No Limitations History of Present Illness Date Seen by Provider: Nov 30, 2019 Time Seen by Provider: 13:05 Initial Comments To ER via EMS from home with reports of general weakness and confusion. Timing/Duration: 1-2 Days Severity: Moderate Associated Systoms: Denies Symptoms Allergies and Home Medications Allergies Coded Allergies: Rjsfgvz-Rvn-Dku Reductase Inhibitor (Verified Allergy, Intermediate, GI UPSET, N/V, 11/06/17) cefadroxil (Unverified Allergy, Mild, 01/01/17) Sulfa (Sulfonamide Antibiotics) (Verified Allergy, Unknown, 06/18/18) Home Medications Acetaminophen 500 Mg Tablet, 500 MG PO Q4H PRN for PAIN-MILD (1-4), (Reported) Bumetanide 1 Mg Tablet, 1 MG PO DAILY, (Reported) Bumetanide 1 Mg Tablet, 1 MG PO DAILY PRN for SWELLING, (Reported) MAY TAKE AN ADDITIONAL DOSE IF NEEDED Cetirizine HCl 10 Mg Tablet, 10 MG PO DAILY, (Reported) Glucosa Horne 2Kcl/Chondroitin Horne 1 Each Capsule, 1 CAP PO BID, (Reported) Insulin Aspart 300 Units/3 Ml Solution, 8 UNITS SQ AC, (Reported) Insulin NPH Human Isophane 100 Unit/1 Ml Vial, SQ AC, (Reported) LAST FILLED 09-05-2019 #10 VIALS SLIDING SCALE A Levofloxacin 500 Mg Tablet, 500 MG PO DAILY Prescribed by: MALLORIE FATIMA on 11/14/19 1634 Levothyroxine Sodium 125 Mcg Tablet, 125 MCG PO DAILY, (Reported) LAST FILLED 09-06-2019 #30 Magnesium Oxide 400 Mg Tablet, 400 MG PO BID, (Reported) Metoclopramide HCl 10 Mg Tablet, 10 MG PO BIDAC PRN for STOMACH UPSET, (Reported) Metolazone 5 Mg Tablet, 5 MG PO SUN,CARLENE PRN for WEIGHT>195, (Reported) Nitrofurantoin Monohyd/M-Cryst 100 Mg Capsule, 1 TAB PO BID WITH MEALS Prescribed by: TONIE CRAWFORD on 11/06/19 1014 Nitroglycerin 0.4 Mg Tab.subl, 0.4 MG SL UD PRN for CHEST PAIN, (Reported) Omeprazole 40 Mg Capsule.dr, 40 MG PO BID, (Reported) Promethazine HCl 25 Mg Tablet, 12.5 MG PO Q12H PRN for NAUSEA/VOMITING-2ND LINE, (Reported) Tizanidine HCl 2 Mg Tablet, 2 MG PO TID PRN for MUSCLE SPASMS, (Reported) Tramadol HCl 50 Mg Tablet, 50 MG PO TID PRN for PAIN-MODERATE, (Reported) [Folic Acid] , 1 MG PO DAILY, (Reported) LAST FILLED 09-11-2019 #30 Patient Home Medication List Home Medication List Reviewed: Yes Review of Systems Review of Systems Constitutional: see HPI EENTM: see HPI Respiratory: no symptoms reported Cardiovascular: no symptoms reported Genitourinary: no symptoms reported Musculoskeletal: no symptoms reported Skin: no symptoms reported Psychiatric/Neurological: No Symptoms Reported Hematologic/Lymphatic: No Symptoms Reported Immunological/Allergic: no symptoms reported Past Reotxhz-Jemelq-Osaesm Hx Patient Social History Type Used: Cigarettes Former Smoker, Quit: May 20, 1980 2nd Hand Smoke Exposure: No Recent Hopitalizations: Yes Immunizations Up To Date Tetanus Booster (TDap): Unknown PED Vaccines UTD: Yes Date of Pneumonia Vaccine: May 16, 2019 Date of Influenza Vaccine: Apr 15, 2019 Seasonal Allergies Seasonal Allergies: Yes Past Medical History Surgeries: Yes (SEE BELOW) Adenoidectomy, Cardiac, CABG, Coronary Stent, Open Heart Surgery, Orthopedic, Tonsillectomy, Tubal Ligation Respiratory: Yes (LEFT PLEURAL EFFUSION-S/P THORACENTESIS) Sleep Apnea Currently Using CPAP: No Currently Using BIPAP: No Cardiac: Yes (CHF, STENT X1; CABG 02/16/2018 x 4 @ 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 LIVER DZ/ELEV AMMONIA) Gastroesophageal Reflux, Liver Disease/Jaundice, Gastrointestinal Bleed, Diverticulosis, Hemorrhoids, Polyps Musculoskeletal: Yes (POOR AMBULATION--USES WALKER SINCE CABG; L ANKLE AND KNEE SURGERIES) Degenerate Disk Disease, Arthritis, Chronic Back Pain, Fractures Endocrine: Yes (OBESITY) Diabetes, Insulin dep, Hypothyroidsim HEENT: No Loss of Vision: Denies Hearing Impairment: Denies Cancer: No Psychosocial: Yes Anxiety Integumentary: Yes Psoriasis Blood Disorders: Yes (CHRONIC ANEMIA-GI LOSS/GAVE SYNDROME; MULT TRANSFUSIONS/MULT ANTIBODIES) Adverse Reaction/Blood Tranf: Yes (Antibody JKA) Family Medical History Arthritis G8 BROTHER Completed stroke 19 MOTHER FH: anemia 19 MOTHER FH: lupus G8 SISTER FH: throat cancer 19 FATHER Hypertension G8 SISTER Myocardial infarction 19 MOTHER Thyroid disease 19 MOTHER G8 SISTER Hypertension, Stroke, Other Conditions/Hx Physical Exam Vital Signs Vital Signs - First Documented 11/30/19 12:52 Temp 37.1 Pulse 61 Resp 18 B/P (MAP) 131/62 (85) Pulse Ox 63 O2 Delivery Room Air Capillary Refill : Height, Weight, BMI Height: 5'4.00" Weight: 196lbs. 5.0oz. 89.639105ee; 38.00 BMI Method:Stated General Appearance: No Apparent Distress, WD/WN, Chronically ill, Other (alert. When asked how she feels she states "goofy". Is not report any other symptoms, does not otherwise converse with us.) Eyes: Bilateral Eye Normal Inspection, Bilateral Eye PERRL, Bilateral Eye EOMI Neck: Full Range of Motion, Normal Inspection Respiratory: Normal Breath Sounds, No Accessory Muscle Use, No Respiratory Distress Gastrointestinal: Normal Bowel Sounds, Non Tender, Soft Extremity: Normal Capillary Refill, Normal Inspection Neurologic/Psychiatric: Alert, Oriented x3 Skin: Normal Color, Warm/Dry Focused Exam Lactate Level 11/30/19 13:47: Lactic Acid Level 2.00 Lactic Acid Level Laboratory Tests Test 11/30/19 13:47 Lactic Acid Level 2.00 MMOL/L (0.50-2.00) Procedures/Interventions Date of ETT Placement: May 30, 2018 Time of ETT Placement: 1330 Progress/Results/Core Measures Suspected Sepsis SIRS Temperature: Pulse: Respiratory Rate: Laboratory Tests 11/30/19 13:00: White Blood Count 5.4 Blood Pressure / Mean: 11/30/19 13:47: Lactic Acid Level 2.00 Laboratory Tests 11/30/19 13:00: Creatinine 2.36H, Platelet Count 191, Total Bilirubin 0.6 11/30/19 13:47: INR Comment 1.0 Results/Orders Lab Results Laboratory Tests Test 11/30/19 13:00 11/30/19 13:47 Range/Units White Blood Count 5.4 4.3-11.0 10^3/uL Red Blood Count 3.28 L 4.35-5.85 10^6/uL Hemoglobin 9.6 L 11.5-16.0 G/DL Hematocrit 30 L 35-52 % Mean Corpuscular Volume 91 80-99 FL Mean Corpuscular Hemoglobin 29 25-34 PG Mean Corpuscular Hemoglobin Concent 32 32-36 G/DL Red Cell Distribution Width 13.5 10.0-14.5 % Platelet Count 191 130-400 10^3/uL Mean Platelet Volume 10.6 H 7.4-10.4 FL Neutrophils (%) (Auto) 74 42-75 % Lymphocytes (%) (Auto) 14 12-44 % Monocytes (%) (Auto) 8 0-12 % Eosinophils (%) (Auto) 4 0-10 % Basophils (%) (Auto) 0 0-10 % Neutrophils # (Auto) 4.0 1.8-7.8 X 10^3 Lymphocytes # (Auto) 0.8 L 1.0-4.0 X 10^3 Monocytes # (Auto) 0.4 0.0-1.0 X 10^3 Eosinophils # (Auto) 0.2 0.0-0.3 10^3/uL Basophils # (Auto) 0.0 0.0-0.1 10^3/uL Urine Color YELLOW Urine Clarity CLEAR Urine pH 7.0 5-9 Urine Specific [place] 1.015 L 1.016-1.022 Urine Protein NEGATIVE NEGATIVE Urine Glucose (UA) NEGATIVE NEGATIVE Urine Ketones NEGATIVE NEGATIVE Urine Nitrite NEGATIVE NEGATIVE Urine Bilirubin NEGATIVE NEGATIVE Urine Urobilinogen 0.2 < = 1.0 MG/DL Urine Leukocyte Esterase NEGATIVE NEGATIVE Urine RBC (Auto) NEGATIVE NEGATIVE Urine RBC RARE /HPF Urine WBC NONE /HPF Urine Squamous Epithelial Cells 2-5 /HPF Urine Crystals NONE /LPF Urine Bacteria NEGATIVE /HPF Urine Casts NONE /LPF Urine Mucus NEGATIVE /LPF Urine Culture Indicated NO Sodium Level 140 135-145 MMOL/L Potassium Level 4.4 3.6-5.0 MMOL/L Chloride Level 104 98-107 MMOL/L Carbon Dioxide Level 26 21-32 MMOL/L Anion Gap 10 5-14 MMOL/L Blood Urea Nitrogen 34 H 7-18 MG/DL Creatinine 2.36 H 0.60-1.30 MG/DL Estimat Glomerular Filtration Rate 21 BUN/Creatinine Ratio 14 Glucose Level 236 H 70-105 MG/DL Calcium Level 9.7 8.5-10.1 MG/DL Corrected Calcium 9.8 8.5-10.1 MG/DL Total Bilirubin 0.6 0.1-1.0 MG/DL Aspartate Amino Transf (AST/SGOT) 17 5-34 U/L Alanine Aminotransferase (ALT/SGPT) 8 0-55 U/L Alkaline Phosphatase 74 40-136 U/L Total Protein 7.8 6.4-8.2 GM/DL Albumin 3.9 3.2-4.5 GM/DL Prothrombin Time 13.4 12.2-14.7 SEC INR Comment 1.0 0.8-1.4 Activated Partial Thromboplast Time 22 L 24-35 SEC Lactic Acid Level 2.00 0.50-2.00 MMOL/L My Orders Orders - MALLORIE FATIMA APRN Cbc With Automated Diff (11/30/19 12:53) Comprehensive Metabolic Panel (11/30/19 12:53) Blood Culture (11/30/19 12:53) Sputum Culture (11/30/19 12:53) Urinalysis (11/30/19 12:53) Urine Culture (11/30/19 12:53) Protime With Inr (11/30/19 12:53) Partial Thromboplastin Time (11/30/19 12:53) Chest 1 View, Ap/Pa Only (11/30/19 12:53) Ed Iv/Invasive Line Start (11/30/19 12:53) Vital Signs Adult Sepsis Patie Q15M (11/30/19 12:53) O2 (11/30/19 12:53) Remove Rings In Anticipation O (11/30/19 12:53) Lactic Acid Analyzer (11/30/19 12:53) Vital Signs/I&O 11/30/19 12:52 Temp 37.1 Pulse 61 Resp 18 B/P (MAP) 131/62 (85) Pulse Ox 63 O2 Delivery Room Air Capillary Refill : Departure Communication (Admissions) Labs look better than in recent past. She is lethargic. She answers questions in very brief answers. I asked her if she was interested in going to a group home, she states no. I asked her if she was interested in hospice and she also states "no". I asked her where she saw herself 6 months from now and she replies "better". I advised her that I have known her for a very long time and she is not going to get better, she is getting sicker and sicker and that I think hospice is a good option for her. She is still not interested in it. She has no indication for admission, wants to go home. Called and he will come get her. Impression Primary Impression: Chronic illness Disposition: 01 HOME, SELF-CARE Condition: Stable Departure-Patient Inst. Decision time for Depature: 14:27 Referrals: JAMES TORRES MD (PCP/Family) Primary Care Physician Patient Instructions: Generalized Weakness (DC) Add. Discharge Instructions: As you continue to get sicker and sicker you will need to consider going to a group home at some point or enrolling in a hospice program. Call Dr. Torres tomorrow to make an appointment to be seen. MALLORIE FATIMA APRN Nov 30, 2019 13:07
[2019-11-30 13:10] LABS: BILIRUBIN,URINE NEGATIVE (NEGATIVE); CLARITY,URINE CLEAR; COLOR,URINE YELLOW; GLUCOSE, URINE (UA) NEGATIVE (NEGATIVE); KETONES,URINE NEGATIVE (NEGATIVE); LEUKOCYTE ESTERASE ,URINE NEGATIVE (NEGATIVE); NITRITE,URINE NEGATIVE (NEGATIVE); PROTEIN,URINE NEGATIVE (NEGATIVE)
[2019-11-30 13:17] LABS: ALBUMIN 3.9 GM/DL (3.2-4.5); POTASSIUM 4.4 MMOL/L (3.6-5.0)
[2019-11-30 13:18] LABS: CALCIUM 9.7 MG/DL (8.5-10.1)
[2019-11-30 13:19] LABS: TOTAL PROTEIN 7.8 GM/DL (6.4-8.2)
[2019-11-30 13:21] LABS: BILIRUBIN,TOTAL 0.6 MG/DL (0.1-1.0)
[2019-11-30 13:23] LABS: CREATININE SERUM 2.36 MG/DL (0.60-1.30)
[2019-11-30 13:25] LABS: BACTERIA,URINE NEGATIVE /HPF; RBC,URINE RARE /HPF
--- NOTE | 2019-11-30 13:44 | Diagnostic Imaging Report ---
INDICATION: Generalized abdominal pain. TIME OF EXAM: 1:37 p.m. COMPARISON: Correlation is made with prior chest from 11/03/2019. FINDINGS: The heart is enlarged but stable. There are changes of median sternotomy. A right-sided chest wall port has tip overlying the SVC. There is some minimal infiltrate or atelectasis in the left base. Otherwise, lungs are clear. There is no failure. No effusion or pneumothorax is detected. IMPRESSION: There is mild left basilar infiltrate or atelectasis. No other significant abnormality is detected. Dictated by: Dictated on workstation # [id number]
[2019-11-30 14:10] LABS: PROTHROMBIN TIME PATIENT 13.4 SEC (12.2-14.7)
--- NOTE | 2019-11-30 14:50 | NUR ---
WAITNG FOR TO COME GET HER.
[2019-11-30 15:43] VITALS: BP 136/65
--- OUTSIDE RECORDS SUMMARY | 2019-11-30 16:33 | XMS REPORT | Encounter Summary ---
Author Author [facility] Organization [facility] Address Unknown Phone Unavailable Care Team Providers Care Sample Color Maker Name Role Phone Carla Wilson MD PCP Naima Field MD Unavailable Winnie Jorge MD Unavailable Emiliano Rodriguez BURN OUT SCARFING OPERATOR-HAT BLOCK BENCH HAND 7 Felisa Sneed MD 3 Reason for Visit * Reason Comments Lab Results Encounter Details Care Team Description Date Type Department Tracie Stuart, painter helper Results 09/27/2019 Telephone [facility] [address] [address] Social History Date Tobacco Use Types Packs/Day [...] prefer to go to [facility] in [place], [place] as this is where she goes [...]
--- OUTSIDE RECORDS SUMMARY | 2019-11-30 16:33 | XMS REPORT | Encounter Summary ---
Author Author [facility] Organization [facility] Address Unknown Phone Unavailable Care Team Providers Care Popcorn Candy Maker Name Role Phone Carla Wilson MD PCP Naima Field MD Unavailable Winnie Jorge MD Unavailable Emiliano Rodriguez RN CORONARY CARE UNIT-WORKFORCE MANAGEMENT COORDINATOR 7 Felisa Sneed MD 3 Reason for Visit * Reason Comments Appointment Question Encounter Details Care Team Description Date Type Department Lynette Diana MD 4000 [facility] [id number] [place] [address] Appointment Question 11/08/2019 Telephone The [facility] [address] [address] Social History Date Tobacco Use [...] 10:22 AM CDT Please call pt to [facility] 11/09 clinic appt documented in this encounter Plan of Treatment Not on filedocumented as of this encounter Visit Diagnoses Not on filedocumented in this encounter
--- OUTSIDE RECORDS SUMMARY | 2019-11-30 16:33 | XMS REPORT | Clinical Summary ---
Author Author [facility] Organization [facility] Address Unknown Phone Unavailable Care Team Providers Care Plant Controller Name Role Phone Carla Wilson MD PCP Naima Field MD Unavailable Winnie Jorge MD Unavailable Emiliano Rodriguez APRN-FLARE MAN 7 Felisa Sneed MD 3 Source Comments Some departments are not documenting in the electronic medical record. If you d o not see the information that you expected, contact Release of Information in [facility] [employer] Information Management department at [phone] for further assistan ce in locating additional records.[facility] Allergies Comments Active Allergy Reactions Severity Noted [...] 6 hours as needed for Sleep. Active ptiwvhuc-jlzptmqfj-U-doug Take 500 mg 0 anese 500-400-2-0.33 mg [...] kidney injury) 02/18/2018 CAD (coronary artery disease), [place] coronary artery 02/16/2018 Overview: 02/16/18: CABG x4 [...] Added automatically from request for carol soria [id number] Resolved Problems Problem Noted Date Resolved Date [...] Comments Vital Sign 112/40 07/05/2019 9:11 AM CONTAINER WASHER MACHINE Blood Pressure 77 07/05/2019 9:11 AM CONTAINER WASHER MACHINE Pulse 36.4 C (97.5 F) 07/05/2019 8:40 AM CONTAINER WASHER MACHINE Temperature 16 03/08/2019 2:34 PM CDT Respiratory Rate 100% 07/05/2019 8:40 AM CONTAINER WASHER MACHINE Oxygen Saturation - - Inhaled Oxygen Concentration 93.4 kg (206 lb) 07/05/2019 9:11 AM CONTAINER WASHER MACHINE Weight 162.6 cm (5' 4") 07/05/2019 9:11 AM CONTAINER WASHER MACHINE Height 35.36 07/05/2019 9:11 AM CONTAINER WASHER MACHINE Body Mass Index Plan of Treatment Health [...] Power injectable confirmed by card. THOMPSON SUTTON [id number] / [id number] / [id number] Plate Acutie Sternal Closure - N/A: Sternum ACT [id number] INNOVATION Implanted: Qty: 2 on 02/16/2018 by Lance Conte MD at [facility] [id number] / [id number] / [id number] Plate Acutie Sternal Closure - N/A: Sternum ACT [id number] INNOVATION Implanted: Qty: 1 on 02/16/2018 by Lance Conte MD at [facility] Procedures Comments Procedure Name Priority Date/Time [...] Specimen Blood - Blood Performing Organization Address [facility] Ph [facility] Number MAIN LAB [address] [place] [address] * BNP (B-TYPE NATRIURETIC PEPTI) (09/26/2019) B Type 376.1 (H) <100.0 [facility] MAIN [facility] Natriuretic Peptide BNP NT pro [facility] MAIN [facility] Specimen Blood - Blood Performing Organization Address [facility] Number MAIN LAB [address] [place] [address] * MAGNESIUM (09/26/2019) Magnesium 2.6 (H) 1.6 - 2.4 [facility] MAIN [facility] Specimen Blood - Blood Narrative Performed At This result has an attachment that is n ot available. Performing Organization Address [facility] Ph [facility] Number MAIN LAB [address] [place] [address] * BASIC METABOLIC PANEL (09/26/2019) Sodium 141 [...] [facility] MAIN [facility] eGFR [facility] [place] Anion Gap 9 [facility] BUN/Creatinine 19 [facility] Ratio Specimen Blood - Blood Performing Organization Address City/State/Zipcode Ph one Number [facility] MAIN LAB [address] [place] [address] from Last 3 Months Insurance Type Payer Benefit Subscriber ID Effective Phone Address Plan / Dates Group Medicare MEDICARE MEDICARE xxxxxxxxxxx [id number] PART A AND resent B Advance Directives Patient Surgical Pathologist Explanation Type Date Recorded Advance 02/16/2018 9:31 [...]
--- OUTSIDE RECORDS SUMMARY | 2019-11-30 16:33 | XMS REPORT | Encounter Summary ---
Author Author [facility] Organization [facility] Address Unknown Phone Unavailable Care Team Providers Care Charge Nurse Name Role Phone Carla Wilson MD PCP Naima Field MD Unavailable Winnie Jorge MD Unavailable Emiliano Rodriguez TOWER TECHNICIAN-MOLDING CUTTER 7 Felisa Sneed MD 3 Reason for Visit * Reason Comments Labs Only Encounter Details Care Team Description Date Type Department Rina Ruano MA Labs Only 09/27/2019 Documentation [facility] [address] [facility] [place] [address] Social History Date Tobacco Use Types Packs/Day [...] Specimen Blood - Blood Performing Organization Address [facility] Ph one Number [facility] MAIN [facility] [address] [place] [phone] * BNP (B-TYPE NATRIURETIC PEPTI) (09/26/2019) B Type 376.1 (H) <100.0 [facility] Natriuretic Peptide BNP NT pro [facility] MAIN [facility] Specimen Blood - Blood Performing Organization Address [facility] MAIN LAB [address] [place] [address] * BASIC METABOLIC PANEL (09/26/2019) Pathologist [facility] [...] [facility] MAIN LAB eGFR [facility] MAIN [facility] [place] Anion Gap 9 [facility] BUN/Creatinine 19 [facility] Ratio Specimen Blood - Blood Performing Organization Address City/[facility] MAIN [facility] [address] [place] [address] * MAGNESIUM (09/26/2019) Magnesium 2.6 (H) 1.6 - 2.4 [facility] MAIN [facility] Specimen Blood - Blood Narrative Performed At This result has an attachment that is n ot available. Performing Organization Address City/[facility] Ph [facility] Number MAIN LAB [address] [place] [address] documented in this encounter Visit Diagnoses Diagnosis Chronic diastolic heart failure (HCC) Chronic diastolic heart failure PAF (paroxysmal atrial fibrillation) (H CC) Atrial fibrillation Heart disease Heart disease, unspecified documented in this encounter
--- OUTSIDE RECORDS SUMMARY | 2019-11-30 16:33 | XMS REPORT | Encounter Summary ---
Author Author [facility] Organization [facility] Address Unknown Phone Unavailable Care Team Providers Care Meat Grading Machine Operator Name Role Phone Carla Wilson MD PCP Naima Field MD Unavailable Winnie Jorge MD Unavailable Emiliano Rodriguez HOOF AND SHOE INSPECTOR-AIR BRUSH OPERATOR 7 Felisa Sneed MD 3 Reason for Visit * Reason Comments Nausea Encounter Details Care Team Description Date Type Department Antolin Erazo [address] [place] [address] Nausea 10/05/[address] [address] Social History Date Tobacco Use [...] to call back. * Telephone Encounter - Danneille Covington MD - 10/05/2019 9:31 PM CDT pls provide one more refill. * Telephone Encounter - Fanny Pastrana RN - 10/05/2019 4:22 PM CDT Pt called and requested medication for nausea. KEL 11/10/18. Pt's PCP stopped pro viding refills of zofran and promethazine. See's Dr. Hodge, Hepatology. 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 Has multiple blood transfusion from Dr. Field, hematology/oncolog y at [facility] in [place], [place]. Last time blood transfusion was last Thursday. Routing to Dr. Covington/Dr. Erazo to advise. documented in this encounter Plan of Treatment Not on filedocumented as of this encounter Visit Diagnoses Not on filedocumented in this encounter
--- OUTSIDE RECORDS SUMMARY | 2019-11-30 16:33 | XMS REPORT | Encounter Summary ---
Author Author [facility] Organization [facility] Address Unknown Phone Unavailable Care Team Providers Care Product Development Engineer Name Role Phone Carla Wilson MD PCP Naima Field MD Unavailable Winnie Jorge MD Unavailable Emiliano Rodriguez GROCERY STORE COURTESY CLERK-RADIATION CONTROL SPECIALIST 7 Felisa Sneed MD 3 Reason for Visit * Reason Comments Other Nurse, Please Call. Encounter Details Care Team Description Date Type Department Lynette Diana MD 4000 [facility] [id number] [place] [address] Other (Nurse, Please Call.) 10/04/[address] [facility] [address] [address] Social History Date Tobacco Use [...] chronic nausea. Requested pat mic call her radio frequency technician. * Telephone Encounter - Lauryn Crum - 10/04/2019 3:07 PM CDT Vm 3:04pm Please have Dr Diana's nurse call. [phone] documented in this encounter Plan of Treatment Not on filedocumented as of this encounter Visit Diagnoses Not on filedocumented in this encounter
--- OUTSIDE RECORDS SUMMARY | 2019-11-30 16:34 | XMS REPORT | Encounter Summary ---
Author Author [facility] Organization [facility] Address Unknown Phone Unavailable Care Team Providers Care Shorthand Reporter Name Role Phone Carla Wilson MD PCP Naima Field MD Unavailable Winnie Jorge MD Unavailable Emiliano Rodriguez BELL CAPTAIN-TRAINING AND DOCUMENTATION SPECIALIST 7 Felisa Sneed MD 3 Reason for Visit * Reason Comments Palliative Care * Consult, Test & Treat (Routine) Referred By Contact Referred To Contact Status Reason Specialty Diagnoses / Procedures Felisa Sneed MD [address] [facility] [place] [address] Pending Review Procedures REQUEST FOR CARDIOLOGY APPOINTMENT Encounter Details Care Team Description Date Type Department Roland Hernández BELL CAPTAIN-TRAINING AND DOCUMENTATION SPECIALIST [id number] [place], [place] [id number] Palliative Care 07/05/2019 Office Visit [facility] [address] [address] Social History Date Tobacco Use Types Packs/Day [...] Comments Vital Sign 112/40 07/05/2019 9:11 AM VARITYPIST Blood Pressure 77 07/05/2019 9:11 AM VARITYPIST Pulse - - Temperature - - Respiratory Rate - - Oxygen Saturation - - Inhaled Oxygen Concentration 93.4 kg (206 lb) 07/05/2019 9:11 AM VARITYPIST Weight 162.6 cm (5' 4") 07/05/2019 9:11 AM VARITYPIST Height 35.36 07/05/2019 9:11 AM VARITYPIST Body Mass Index documented in this encounter [...] this encounter Progress Notes * Roland Hernández, SAMANTHA-TRAINING AND DOCUMENTATION SPECIALIST - 07/05/2019 9:30 AM VARITYPIST PALLIATIVE CARE OUTPATIENT VISIT Date of Service: [...] needs to PCP/specilsits unless HF becomes primary medical van driver of decompensa tion in health status. Follow-up: PRN Thank you for the opportunity to participate in the care of this patient. Please call with any questions or concerns. Roland Hernández APRN, TRAINING AND DOCUMENTATION SPECIALIST-C Palliative Care--Outpatient Heart Failure Pager: Office: (Total time spent 45 minutes ekbc-[id number] with patient & . Estimated counseling time [...] Bleeding disorder (HCC) CAD (coronary artery disease), chickahom[place] indian tribe coronary artery 02/16/2018 Chronic diastolic heart failure (HCC) 03/31/2018 Coronary artery disease Diabetes mellitus (HCC) Type II Essential hypertension 02/23/2018 Hypertension Stomach disorder Vision decreased Surgical History: Surgical History: Procedure Laterality Date HX HEART CATHETERIZATION 2017 CORONARY STENT PLACEMENT 2016 CORONARY ARTERY BYPASS WITH ARTERIAL GRAFT - 4 GRAFTS (Internal Mammary Torie ry and Endovascular Vein [place]) N/A 02/16/2018 Performed by Lance Pal MD [...] tablet Take 1 mg by mouth daily. guwbsgok-llkqmoczm-U-manganese 500-400-2-0.33 mg cap Take 500 mg by [...] - Heart Failure: MD Roland Mackay APRN [address] [facility] [address] [place] [address] [phone] Phone contact: [phone] TYPIST documented in this encounter Miscellaneous Notes * Advanced Care Planning/Resuscitation Status - Roland Hernández APRN-NP - 07/05/2019 9:30 AM VARITYPIST Advance Care Planning/Resuscitation Status Conversation Individuals present for advance care planning conversation: Patient, (), Edgar Palliative TRAINING AND DOCUMENTATION SPECIALIST Pertinent details of conversation (including direct [...] sepa rate billable note). Roland Hernández APRN TRAINING AND DOCUMENTATION SPECIALIST-C Palliative Care--Outpatient Heart Failure Pager: Office: TYPIST documented in this encounter Plan of Treatment [...]
--- OUTSIDE RECORDS SUMMARY | 2019-11-30 16:34 | XMS REPORT | Encounter Summary ---
Author Author [facility] Organization [facility] Address Unknown Phone Unavailable Care Team Providers Care Benefits Coordinator Name Role Phone Carla Wilson MD PCP Naima Field MD Unavailable Winnie Jorge MD Unavailable Emiliano Rodriguez DOCUMENT MANAGEMENT TECHNICIAN-COMMERCIAL MORTGAGE BROKER 7 Felisa Sneed MD 3 Reason for Referral * Consult, Test & Treat (Routine) Referred By Contact Referred To Contact Status Reason Specialty Diagnoses / Procedures Felisa Sneed MD [address] [place] [address] New Request Diagnoses Heart disease P rocedures REQUEST FOR CARDIOLOGY APPOINTMENT Reason for Visit * Reason Comments Cardiac Eval 3 month recheck * Consult, Test & Treat (Routine) Referred By Contact Referred To Contact Status Reason Specialty Diagnoses / Procedures Felisa Sneed MD [address] [place] [address] New Request Procedures REQUEST FOR CARDIOLOGY APPOINTMENT Encounter Details Care Team Description Date Type Department Felisa Sneed MD [address] [place] [address] [phone] Cardiac Eval (3 month recheck) 07/05/2019 Office Visit [facility] [address] [address] Social History Date Tobacco Use Types Packs/Day [...] Comments Vital Sign 112/40 07/05/2019 8:40 AM MORTGAGE FUNDER Blood Pressure 77 07/05/2019 8:40 AM MORTGAGE FUNDER Pulse 36.4 C (97.5 F) 07/05/2019 8:40 AM MORTGAGE FUNDER Temperature - - Respiratory Rate 100% 07/05/2019 8:40 AM MORTGAGE FUNDER Oxygen Saturation - - Inhaled Oxygen Concentration 93.6 kg (206 lb 6.4 oz) 07/05/2019 8:40 AM MORTGAGE FUNDER Weight 162.6 cm (5' 4") 07/05/2019 8:40 AM MORTGAGE FUNDER Height 35.43 07/05/2019 8:40 AM MORTGAGE FUNDER Body Mass Index documented in this encounter [...] Instructions* Janell Matos - 07/05/2019 9:00 AM MORTGAGE FUNDER Will see Roland today. Med changes today: increase bumex to 2mg twice a day. Metolazone 5mg daily Mondays and , 1 hour before morning bumex, with in structions to only take if weight is above 195 pounds. Please log you blood pressure, heart rate, and daily weight in the [facility] walk[facility]. Labs standing monthly with routine CBC: [...] does not resolve with rest or nitroglycerin [place], foamy mucus with cough and shortness of breath A continuous rapid or irregular heartbeat Passing out or fainting Stroke symptoms such as sudden numbness or weakness on one side of your face, arm, or leg or sudden confusion, trouble speaking or vision changes Heart Failure GAGE FUNDER documented in this encounter Progress Notes * Felisa Sneed MD - 07/05/2019 9:00 AM MORTGAGE FUNDER Date of Service: 07/05/2019 Deborah Fields is a 64 y.o. female. CRYS Cabrera returns for follow-up in the advanced heart failure clinic in [place]. As you recall, she is now 64 years old, and I follow her for diastolic heart f ailure, but she has complex medical history including stable coronary disease, p aroxysmal atrial fib, GAVE/cirrhosis with transfusion-dependent anemia, chronic kidney disease, and several other comorbidities as listed in her problem as grasyon soares. She returns to see me today [...] (HCC ) 03/31/2018 Chronic diastolic heart failure ([facility]) 03/31/2018 Long's esophagus 03/30/2018 Left leg cellulitis 03/29/2018 Pleural effusion on left 03/26/2018 Essential hypertension 02/23/2018 DELROY (acute kidney injury) ([facility]) 02/18/2018 CAD (coronary artery disease), eklutna coronary artery 02/16/2018 02/16/18: CABG x4 (PRIDE [...] present on pulmonary function testing 02/16/2018 Thrombocytopenia ([facility]) 02/16/2018 Junctional rhythm 02/16/2018 Type 2 diabetes mellitus with circulatory disorder, without long-term curren t use of insulin ([facility]) 02/12/2018 PAF (paroxysmal atrial fibrillation) ([facility]) 02/12/2018 02/16/18: Bilateral modified CryoMaze procedure (pulmonary vein isolation) & Suture ligation of left atrial appendage at time of CABG. 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 anemia 11/13/2017 Added automatically from request for surgery [id number] Review of Systems Constitution: Negative. HENT: Negative. [...] disease Essential hypertension Coronary artery disease involving eklutna coronary artery of eklutna heart wit hout angina pectoris Assessment and [...] and is following with Dr. Sosa in [place] at [facility], and his ejection [...] Advanced Heart Failure and Transplant Cardiology Pager [phone] I spent 25 minutes with the patient [...] tablet Take 1 mg by mouth daily. piqosmfl-lnijgjnfm-F-manganese 500-400-2-0.33 mg cap Take 500 mg by [...] 6 hours as nee ded for Pain. GAGE FUNDER documented in this encounter Plan of Treatment [...] is n ot available. Performing Organization Address City/[facility] Ph one Number MAIN LAB [address] [place] [address] * BASIC METABOLIC PANEL (09/26/2019) Sodium 141 [...] [facility]U MAIN LAB eGFR [facility] MAIN LAB Palestinian Anion Gap 9 [facility] MAIN LAB BUN/Creatinine 19 [facility] MAIN LAB Ratio Specimen Blood - Blood Performing Organization Address City/[facility] Ph one Number MAIN LAB [address] [place] [address] * BNP (B-TYPE NATRIURETIC PEPTI) (09/26/2019) B Type 376.1 (H) <100.0 [facility] MAIN LAB Natriuretic Peptide BNP NT pro [facility] MAIN LAB Specimen Blood - Blood Performing Organization Address [facility] Ph one Number KU MAIN LAB [address] [place] [address] * CBC (09/26/2019) Pathologist [facility] [...] Specimen Blood - Blood Performing Organization Address [facility] Ph one Number KU MAIN LAB [address] [place] [address] documented in this encounter Visit Diagnoses Diagnosis Chronic diastolic heart failure (HCC) Chronic diastolic heart failure PAF (paroxysmal atrial fibrillation) (H CC) Atrial fibrillation Heart disease Heart disease, unspecified Essential hypertension Unspecified essential hypertension Coronary artery disease involving nativ e coronary artery of eklutna heart without angina pectoris documented in this encounter
--- OUTSIDE RECORDS SUMMARY | 2019-11-30 16:34 | XMS REPORT | Encounter Summary ---
Author Author [facility] Organization [facility] Address Unknown Phone Unavailable Care Team Providers Care Social Media Job Titles Name Role Phone Carla Wilson MD PCP Naima Field MD Unavailable Winnie Jorge MD Unavailable Emiliano Rodriguez WRAPPER LAYER-SIDE GLUER 7 Felisa Sneed MD 3 Reason for Visit * Reason Comments Labs Only Encounter Details Care Team Description Date Type Department Janell Matos Labs Only 06/01/[address] [facility] [address] [facility] [place] [address] Social History Date Tobacco Use Types Packs/Day [...] KU MAIN LAB eGFR [facility] MAIN LAB Brazilian Anion Gap 12 5 - 14 [facility] MAIN LAB Specimen Blood - Blood Narrative Performed At This result has an attachment that is n ot available. Performing Organization Address City/State/Zipcode Ph one Number KU MAIN LAB [address] [place] [address] documented in this encounter Visit Diagnoses Diagnosis Chronic diastolic heart failure (HCC) Chronic diastolic heart failure documented in this encounter
--- OUTSIDE RECORDS SUMMARY | 2019-11-30 16:34 | XMS REPORT | Encounter Summary ---
Author Author [facility] Organization [facility] Address Unknown Phone Unavailable Care Team Providers Care Trains Dispatcher Supervisor Name Role Phone Carla Wilson MD PCP Naima Field MD Unavailable Winnie Jorge MD Unavailable Emiliano Rodriguez DIPLOMATIC OFFICER-ORACLE APPLICATION CONSULTANT 7 Felisa Sneed MD 3 Encounter Details Care Team Description Date Type Department Rina Ruano MA 07/28/2019 Documentation The [facility] [id number] [place] [address] Social History Date Tobacco Use Types Packs/Day [...] Results * PROTIME INR (PT) (07/28/2019) Pathologist [facility] INR 1.1 0.8 - 1.4 OTHER OUTSIDE LAB Protime 14.2 OTHER OUTSIDE LAB Specimen Blood - Blood Performing Organization Address City/[facility] one Number OTHER OUTSIDE LAB * CBC AND DIFF (07/28/2019) Pathologist [facility] White Blood 3.4 (L) 4.3 - 11.0 [...] is n ot available. Performing Organization Address City/[facility] Ph one Number OTHER OUTSIDE LAB * COMPREHENSIVE METABOLIC PANEL (07/28/2019) Pathologist [facility] Sodium 138 OTHER OUTSIDE LAB Potassium 4.3 [...] LAB eGFR Non 29 OTHER OUTSIDE LAB Greenlandic eGFR OTHER OUTSIDE Green[place]ic LAB Anion Gap 5 OTHER OUTSIDE LAB BUN/Creatinine 14 OTHER OUTSIDE Ratio LAB Specimen Blood - Blood Performing Organization Address [facility] Ph [facility] Number OTHER OUTSIDE LAB documented in this encounter Visit Diagnoses Not on filedocumented in this encounter
== END 2019-11-30 15:41 | disposition home or self-care (01) ==
LOC: EDUNIT# 12:49 → ER 12:51
DX: R53.1 Weakness (principal); R41.0 Disorientation, unspecified; I11.0 Hypertensive heart disease with heart failure; I50.9 Heart failure, unspecified; E11.9 Type 2 diabetes mellitus without complications; E03.9 Hypothyroidism, unspecified; I25.2 Old myocardial infarction; I25.10 Atherosclerotic heart disease of native coronary artery without angina pectoris; K21.9 Gastro-esophageal reflux disease without esophagitis; Z88.1 Allergy status to other antibiotic agents; Z88.2 Allergy status to sulfonamides; Z88.8 Allergy status to other drugs, medicaments and biological substances; Z79.4 Long term (current) use of insulin; Z87.891 Personal history of nicotine dependence; Z95.5 Presence of coronary angioplasty implant and graft; Z95.1 Presence of aortocoronary bypass graft; Z79.890 Hormone replacement therapy; Z80.8 Family history of malignant neoplasm of other organs or systems; Z82.49 Family history of ischemic heart disease and other diseases of the circulatory system
CPT/HCPCS: 36415; 71045; 80053; 81000; 83605; 85025; 85610; 85730; 87040; 87077; 87088; 87186

== ENCOUNTER 2019-12-05 20:45 | Emergency (ER) | payer MEDICARE ==
[2019-12-05 21:53] LABS: BASOPHILS % (AUTO) 0 % (0-10); EOSINOPHILS # (AUTO) 0.5 10^3/uL (0.0-0.3); EOSINOPHILS % (AUTO) 8 % (0-10); HEMATOCRIT 26 % (35-52); HEMOGLOBIN 8.2 G/DL (11.5-16.0); LYMPHOCYTES # (AUTO) 1.1 X 10^3 (1.0-4.0); LYMPHOCYTES % (AUTO) 19 % (12-44); MEAN CORPUSCULAR HEMOGLOBIN 29 PG (25-34); MEAN CORPUSCULAR HGB CONC 32 G/DL (32-36); MEAN CORPUSCULAR VOLUME 91 FL (80-99); MEAN PLATELET VOLUME 10.2 FL (7.4-10.4); MONOCYTES # (AUTO) 0.9 X 10^3 (0.0-1.0); MONOCYTES % (AUTO) 15 % (0-12); NEUTROPHILS # (AUTO) 3.3 X 10^3 (1.8-7.8); NEUTROPHILS % (AUTO) 58 % (42-75); PLATELET COUNT 155 10^3/uL (130-400); RED CELL DISTRIBUTION WIDTH 13.8 % (10.0-14.5); WHITE BLOOD COUNT 5.8 10^3/uL (4.3-11.0)
[2019-12-05 22:03] LABS: CHLORIDE 100 MMOL/L (98-107); POTASSIUM 3.8 MMOL/L (3.6-5.0); PROTHROMBIN TIME PATIENT 13.7 SEC (12.2-14.7); SODIUM 139 MMOL/L (135-145)
[2019-12-05 22:04] LABS: ALBUMIN 3.9 GM/DL (3.2-4.5)
[2019-12-05 22:05] LABS: AMMONIA 103 UMOL/L (11-32); CALCIUM 9.6 MG/DL (8.5-10.1)
[2019-12-05 22:06] LABS: GLUCOSE 222 MG/DL (70-105)
[2019-12-05 22:07] LABS: CARBON DIOXIDE 27 MMOL/L (21-32); TOTAL PROTEIN 7.5 GM/DL (6.4-8.2)
[2019-12-05 22:08] LABS: BILIRUBIN,TOTAL 0.5 MG/DL (0.1-1.0)
[2019-12-05 22:10] LABS: ALKALINE PHOSPHATASE 79 U/L (40-136); CREATININE SERUM 2.33 MG/DL (0.60-1.30); GFR ESTIMATED 21
[2019-12-05 22:11] LABS: BUN/CREATININE RATIO 15
[2019-12-05 22:13] LABS: ALANINE AMINOTRANSFERASE 10 U/L (0-55); MAGNESIUM 2.1 MG/DL (1.6-2.4)
[2019-12-05 22:18] LABS: BILIRUBIN,URINE NEGATIVE (NEGATIVE); CLARITY,URINE CLEAR; COLOR,URINE YELLOW; GLUCOSE, URINE (UA) NEGATIVE (NEGATIVE); KETONES,URINE NEGATIVE (NEGATIVE); LEUKOCYTE ESTERASE ,URINE NEGATIVE (NEGATIVE); NITRITE,URINE NEGATIVE (NEGATIVE); PH,URINE 6.5 (5-9); PROTEIN,URINE NEGATIVE (NEGATIVE)
[2019-12-05 22:19] LABS: ACETAMINOPHEN < 10 UG/ML (10-30)
[2019-12-05 22:21] LABS: BACTERIA,URINE TRACE /HPF; HYALINE CASTS, URINE RARE /LPF; SQUAMOUS EPITHELIAL CELL,UR 0-2 /HPF
[2019-12-05 22:22] LABS: AMPHETAMINE SCREEN, URINE NEGATIVE (NEGATIVE); BARBITURATE SCREEN URINE NEGATIVE (NEGATIVE); BENZODIAZEPINES SCREEN URINE NEGATIVE (NEGATIVE); CANNABINOID SCREEN, URINE NEGATIVE (NEGATIVE); COCAINE SCREEN URINE NEGATIVE (NEGATIVE); METHADONE STAT NEGATIVE (NEGATIVE); METHAMPHETAMINE SCREEN URINE S NEGATIVE (NEGATIVE); OPIATE SCREEN URINE NEGATIVE (NEGATIVE); OXYCODONE STAT NEGATIVE (NEGATIVE); PROPOXYPHENE STAT NEGATIVE (NEGATIVE); TRICYCLIC ANTIDEPRESSANTS SCRE NEGATIVE (NEGATIVE)
[2019-12-05 22:33] LABS: TSH (THYROID ANALYZER) 2.67 UIU/ML (0.35-4.94)
--- NOTE | 2019-12-05 23:09 | ED General ---
General Chief Complaint: Altered Mental Status Stated Complaint: CONFUSION Source of Information: Patient (LIMITED HISTORIAN), Old Records History of Present Illness Date Seen by Provider: Dec 05, 2019 Time Seen by Provider: 21:10 Initial Comments PT ARRIVES VIA POV FROM HOME PT STATES "I'M CONFUSED" STATES "I'M LOOPY" --ONGOING FOR AT LEAST A WEEK PT STATES "MY SAYS I'M WORSE" STATES SHE HAS BEEN HAVING DIFFICULTY GETTING AROUND--STATES SHE MOSTLY STAYS IN BED. STATES SHE GOT UP TO GO TO THE BATHROOM BUT DIDN'T MAKE IT STATES "I LOST MY TEETH LAST NIGHT AND I COULDN'T FIND THEM. MY FOUND THEM. THEY WERE IN MY MOUTH" STATES "I FALL TO SLEEP PRETTY QUICK" PT HAS CHRONIC LIVER DISEASE/ELEVATED AMMONIA LEVELS PT ALSO HAS CHRONIC BASELINE CONFUSION/DEMENTIA NO FEVER NO COUGH NO CHANGE IN CHRONIC SHORTNESS OF BREATH--IS SUPPOSED TO WEAR HOME O2, BUT ARRIVES WITHOUT ANY--O2 SATS 95-96% ON ROOM AIR. STATES SHE DOESN'T WEAR THE OXYGEN "BECAUSE IT DOESN'T HELP" HAS CHRONIC NAUSEA/VOMITING--VOMITED X 1 TODAY, HAS ZOFRAN AT HOME AND TOOK 1 TODAY AND NAUSEA IS BETTER NO ABDOMINAL PAIN NO DIARRHEA PT SEEN HERE 11/30/19 FOR SAME PT HAS CHRONIC LIVER FAILURE AND IS SUPPOSED TO BE ON LACTULOSE, CANNOT STATE IF/WHEN SHE LAST TOOK IT PT WAS ADMITTED 10/25-10/28 FOR CHRONIC ANEMIA DUE TO "GAVE" --TRANSFUSION DEPENDENT ANEMIA PT ADMITTED 11/02-11/06/19 FOR LLL PNEUMONIA NO KNOWN SICK CONTACTS OR EXPOSURE TO COVID-19. PT WITH MULTIPLE VISITS FOR VARIOUS COMPLAINTS PCP: [facility], DR. TORRES/ CAN CAPPER MIREILLE PEÑA HAS NOT ATTEMPTED TO FOLLOW UP WITH ANYONE FOR THIS PROBLEM, BUT STATES THAT SHE HAS AN APPOINTMENT THIS THURSDAY WITH DR. TORRES--"BUT DIDN'T THINK I COULD WAIT THAT LONG" Allergies and Home Medications Allergies Coded Allergies: Wruhnxd-Bef-Fjd Reductase Inhibitor (Verified Allergy, Intermediate, GI UPSET, N/V, 11/06/17) cefadroxil (Unverified Allergy, Mild, 01/01/17) Sulfa (Sulfonamide Antibiotics) (Verified Allergy, Unknown, 06/18/18) Home Medications Acetaminophen 500 Mg Tablet, 500 MG PO Q4H PRN for PAIN-MILD (1-4), (Reported) Bumetanide 1 Mg Tablet, 1 MG PO DAILY, (Reported) Bumetanide 1 Mg Tablet, 1 MG PO DAILY PRN for SWELLING, (Reported) MAY TAKE AN ADDITIONAL DOSE IF NEEDED Cetirizine HCl 10 Mg Tablet, 10 MG PO DAILY, (Reported) Glucosa Horne 2Kcl/Chondroitin Horne 1 Each Capsule, 1 CAP PO BID, (Reported) Insulin Aspart 300 Units/3 Ml Solution, 8 UNITS SQ AC, (Reported) Insulin NPH Human Isophane 100 Unit/1 Ml Vial, SQ AC, (Reported) LAST FILLED 09-05-2019 #10 VIALS SLIDING SCALE A Levofloxacin 500 Mg Tablet, 500 MG PO DAILY Prescribed by: MALLORIE FATIMA on 11/14/19 1634 Levothyroxine Sodium 125 Mcg Tablet, 125 MCG PO DAILY, (Reported) LAST FILLED 09-06-2019 #30 Magnesium Oxide 400 Mg Tablet, 400 MG PO BID, (Reported) Metoclopramide HCl 10 Mg Tablet, 10 MG PO BIDAC PRN for STOMACH UPSET, (Reported) Metolazone 5 Mg Tablet, 5 MG PO SUN,CARLENE PRN for WEIGHT>195, (Reported) Nitrofurantoin Monohyd/M-Cryst 100 Mg Capsule, 1 TAB PO BID WITH MEALS Prescribed by: TONIE CRAWFORD on 11/06/19 1014 Nitroglycerin 0.4 Mg Tab.subl, 0.4 MG SL UD PRN for CHEST PAIN, (Reported) Omeprazole 40 Mg Capsule.dr, 40 MG PO BID, (Reported) Promethazine HCl 25 Mg Tablet, 12.5 MG PO Q12H PRN for NAUSEA/VOMITING-2ND LINE, (Reported) Tizanidine HCl 2 Mg Tablet, 2 MG PO TID PRN for MUSCLE SPASMS, (Reported) Tramadol HCl 50 Mg Tablet, 50 MG PO TID PRN for PAIN-MODERATE, (Reported) [Folic Acid] , 1 MG PO DAILY, (Reported) LAST FILLED 09-11-2019 #30 Patient Home Medication List Home Medication List Reviewed: Yes Review of Systems Review of Systems Constitutional: see HPI; No chills, No diaphoresis, No dizziness, No fever; malaise, weakness EENTM: no symptoms reported Respiratory: see HPI; No cough Cardiovascular: no symptoms reported; No chest pain, No edema, No palpitations, No syncope Gastrointestinal: see HPI; No abdominal pain, No constipation, No diarrhea; nausea, vomiting Genitourinary: no symptoms reported Musculoskeletal: no symptoms reported Skin: no symptoms reported Psychiatric/Neurological: See HPI; Denies Headache, Denies Numbness, Denies Paresthesia, Denies Seizure, Denies Tingling, Denies Tremors Hematologic/Lymphatic: See HPI, Anemia (TRANSFUSION-DEPENDENT) Immunological/Allergic: no symptoms reported Past Kumcbju-Wiupsx-Sqgwly Hx Past Med/Social Hx: Reviewed and Corrections made Patient Social History Recreational Drug Use: No Smoking Status: Former Smoker Type Used: Cigarettes Former Smoker, Quit: May 20, 1980 2nd Hand Smoke Exposure: No Recent Foreign Travel: No Contact w/Someone Who Travel: No Recent Hopitalizations: Yes Immunizations Up To Date Tetanus Booster (TDap): Unknown PED Vaccines UTD: Yes Date of Pneumonia Vaccine: May 16, 2019 Date of Influenza Vaccine: Apr 15, 2019 Seasonal Allergies Seasonal Allergies: Yes Past Medical History Surgeries: Yes (SEE BELOW) Adenoidectomy, Cardiac, CABG, Coronary Stent, Open Heart Surgery, Orthopedic, Tonsillectomy, Tubal Ligation Respiratory: Yes (LEFT PLEURAL EFFUSION-S/P THORACENTESIS) Pneumonia, Sleep Apnea Currently Using CPAP: No Currently Using BIPAP: No Cardiac: Yes (CHF, STENT X1; CABG 02/16/2018 x 4 @ [facility];NSTEMI X 3) Atrial Fibrillation, Chronic Edema/Swelling, Coronary Artery Disease, Heart Attack, High Cholesterol, Hypertension Neurological: Yes (CHRONIC BASELINE CONFUSION) Dementia Reproductive Disorders: No Female Reproductive Disorders: Denies TRAFFIC ADMINISTRATOR History: Menopausal Sexually Transmitted Disease: No HIV/AIDS: No Genitourinary: Yes Bladder Infection, Renal Failure Gastrointestinal: Yes (GAVE-GASTRIC ANTRAL VASCULAR ECTASIA;GASTRITIS;CHR. LIVER DZ/ELEV AMMONIA) Gastroesophageal Reflux, Liver Disease/Jaundice, Gastrointestinal Bleed, Diverticulosis, Hemorrhoids, Polyps Musculoskeletal: Yes (POOR AMBULATION--USES WALKER SINCE CABG; L ANKLE AND KNEE SURGERIES) Degenerate Disk Disease, Arthritis, Chronic Back Pain, Fractures Endocrine: Yes (OBESITY) Diabetes, Insulin dep, Hypothyroidsim HEENT: No Loss of Vision: Denies Hearing Impairment: Denies Cancer: No Psychosocial: Yes Anxiety Integumentary: Yes Psoriasis Blood Disorders: Yes (CHRONIC ANEMIA-GI LOSS/GAVE SYNDROME; MULT TRANSFUSIONS/MULT ANTIBODIES) Adverse Reaction/Blood Tranf: Yes (Antibody JKA) Family Medical History Arthritis G8 BROTHER Completed stroke 19 MOTHER FH: anemia 19 MOTHER FH: lupus G8 SISTER FH: throat cancer 19 FATHER Hypertension G8 SISTER Myocardial infarction 19 MOTHER Thyroid disease 19 MOTHER G8 SISTER Hypertension, Stroke, Other Conditions/Hx PSH: -LEFT ANKLE SURGERY -LEFT KNEE SURGERY -CARDIAC CATHS--STENT X 1 -4 VESSEL CABG AT [facility] 02/16/18 -THORACENTESIS -TONSILLECTOMY/ADENOIDECTOMY -BTL Physical Exam Vital Signs Vital Signs - First Documented 12/05/19 12/05/19 20:59 23:45 Temp 37.3 Pulse 73 Resp 16 B/P (MAP) 166/81 (109) Pulse Ox 95 O2 Delivery Room Air Capillary Refill : Height, Weight, BMI Height: 5'4.00" Weight: 196lbs. 5.0oz. 89.722192ed; 43.00 BMI Method:Stated General Appearance: No Apparent Distress, WD/WN, Other (SOMEWHAT DROWSY/LETHARGIC) HEENT: PERRL/EOMI Neck: Normal Inspection Respiratory: Normal Breath Sounds, No Accessory Muscle Use, No Respiratory Distress Cardiovascular: Regular Rate, Rhythm, No Murmur Gastrointestinal: Non Tender, Soft Extremity: Normal Range of Motion, Non Tender Neurologic/Psychiatric: Alert, Oriented x3 (BUT POOR MEMORY), No Motor/Sensory Deficits, Normal Mood/Affect, integration manager II-XII Norm as Tested Skin: Normal Color, Warm/Dry Focused Exam Lactate Level 12/05/19 21:10: Lactic Acid Level 1.43 Lactic Acid Level Procedures/Interventions Date of ETT Placement: May 30, 2018 Time of ETT Placement: 1330 Progress/Results/Core Measures Suspected Sepsis SIRS Temperature: Pulse: Respiratory Rate: Laboratory Tests 12/05/19 21:10: White Blood Count 5.8 Blood Pressure / Mean: 12/05/19 21:10: Lactic Acid Level 1.43 Laboratory Tests 12/05/19 21:10: Creatinine 2.33H, INR Comment 1.0, Platelet Count 155, Total Bilirubin 0.5 Results/Orders Lab Results My Orders Vital Signs/I&O Capillary Refill : Progress Note : Progress Note UNEVENTFUL ER STAY ECG Initial ECG Impression Date: Dec 05, 2019 Initial ECG Impression Time: 21:21 Initial ECG Rate: 74 Initial ECG Impression: Nonspecific Changes (SINUS ARRHYTHMIA) Diagnostic Imaging Comments CXR--NO ACUTE PROCESS, CHRONIC /STABLE CHANGES--PENDING RADIOLOGIST REVIEW Reviewed: Reviewed by Me Departure Impression Primary Impression: Hyperammonemia Additional Impressions: CHRONIC RENAL FAILURE/INSUFFICIENCY Chronic anemia Chronic liver disease Type 2 diabetes mellitus with hyperglycemia Disposition: HOME, SELF-CARE Condition: Stable Departure-Patient Inst. Referrals: JAMES TORRES MD (PCP/Family) Primary Care Physician Patient Instructions: Ammonia Blood Test, Anemia of Chronic Disease Add. Discharge Instructions: INCREASE YOUR LACTULOSE TO EVERY 4 HOURS UNTIL YOU HAVE DIARRHEA, THEN DECREASE IT TO TWICE A DAY FOLLOW UP WITH [facility] THIS WEEK FOR FURTHER CARE All discharge instructions reviewed with patient and/or family. Voiced understanding. OJSR GILLIS DO Dec 05, 2019 23:09
[2019-12-05] MEDS ORDERED: LACTULOSE SYRUP 10GM/15ML (ENULOSE) 30ML UDC PO ONE (23:15)
[2019-12-05 23:45] VITALS: BP 137/64
--- NOTE | 2019-12-06 05:46 | Diagnostic Imaging Report ---
Clinical indication: Patient with altered mental status. Exam: Portable chest x-ray upright view. Comparisons: Chest x-ray dated 11/30/2019. Findings: Lungs/pleura: There is stable mild left basilar atelectasis and slight elevation of the left hemidiaphragm. The remainder of the lungs are clear. There is no pneumothorax. There is no pleural effusion. Mediastinum: Unremarkable. Pulmonary vasculature: Unremarkable. Heart: Cardiac silhouette is upper limits of normal size.. Bones/extrathoracic soft tissue: There are degenerative spurs involving the spine. Again seen surgical clips overlying the left upper chest region. Sternotomy wires are noted. Port-A-Cath again seen overlying the right chest in stable position. Impression: 1: Stable mild left basilar atelectasis and slight elevation of the left hemidiaphragm. Dictated by: Dictated on workstation # [id number]
== END 2019-12-05 23:45 | disposition home or self-care (01) ==
LOC: EDUNIT# 20:45 → ER 20:46
DX: E11.22 Type 2 diabetes mellitus with diabetic chronic kidney disease (principal); I13.0 Hypertensive heart and chronic kidney disease with heart failure and stage 1 through stage 4 chronic kidney disease, or unspecified chronic kidney disease; N18.9 Chronic kidney disease, unspecified; I50.9 Heart failure, unspecified; D63.1 Anemia in chronic kidney disease; E03.9 Hypothyroidism, unspecified; I25.2 Old myocardial infarction; I25.10 Atherosclerotic heart disease of native coronary artery without angina pectoris; K21.9 Gastro-esophageal reflux disease without esophagitis; F41.9 Anxiety disorder, unspecified; E66.9 Obesity, unspecified; Z88.8 Allergy status to other drugs, medicaments and biological substances; Z88.1 Allergy status to other antibiotic agents; Z88.2 Allergy status to sulfonamides; Z79.4 Long term (current) use of insulin; Z79.890 Hormone replacement therapy; Z95.5 Presence of coronary angioplasty implant and graft; Z95.1 Presence of aortocoronary bypass graft; Z68.41 Body mass index [BMI] 40.0-44.9, adult; Z87.891 Personal history of nicotine dependence; Z80.8 Family history of malignant neoplasm of other organs or systems; Z82.49 Family history of ischemic heart disease and other diseases of the circulatory system
CPT/HCPCS: 51702; 53620; 71045; 80053; 80306; 81000; 82140; 83605; 83735; 84443; 85025; 85610; 85730; 87040; 93005; 93041; 99285; G0480 ×2; 36415; 80320; 80329

== ENCOUNTER 2019-12-21 20:35 | Emergency (ER) | payer MEDICARE ==
[~2019-12-21] VITALS: Ht 160 cm; Wt 95.2 kg
[2019-12-21] MEDS ORDERED: ONDANSETRON 4 MG/2 ML (SDV) Z0FRAN ONE (21:05)
[2019-12-21 21:22] LABS: BASOPHILS % (AUTO) 1 % (0-10); EOSINOPHILS # (AUTO) 0.5 10^3/uL (0.0-0.3); EOSINOPHILS % (AUTO) 9 % (0-10); HEMATOCRIT 28 % (35-52); HEMOGLOBIN 9.1 G/DL (11.5-16.0); LYMPHOCYTES # (AUTO) 1.2 X 10^3 (1.0-4.0); LYMPHOCYTES % (AUTO) 21 % (12-44); MEAN CORPUSCULAR HEMOGLOBIN 31 PG (25-34); MEAN CORPUSCULAR HGB CONC 33 G/DL (32-36); MEAN CORPUSCULAR VOLUME 94 FL (80-99); MEAN PLATELET VOLUME 10.4 FL (7.4-10.4); MONOCYTES # (AUTO) 0.7 X 10^3 (0.0-1.0); MONOCYTES % (AUTO) 12 % (0-12); NEUTROPHILS # (AUTO) 3.4 X 10^3 (1.8-7.8); NEUTROPHILS % (AUTO) 58 % (42-75); PLATELET COUNT 164 10^3/uL (130-400); RED CELL DISTRIBUTION WIDTH 16.8 % (10.0-14.5); WHITE BLOOD COUNT 5.8 10^3/uL (4.3-11.0)
[2019-12-21 21:37] LABS: ABG BASE EXCESS 1.9 MMOL/L (-2.5-2.5); ABG OXYGEN SATURATION 95 % (94-100); ABG PCO2 39 MMHG (35-45); ABG PH 7.43 (7.37-7.43); ABG PO2 71 MMHG (79-93)
[2019-12-21 21:37] LABS: PROTHROMBIN TIME PATIENT 13.8 SEC (12.2-14.7)
[2019-12-21 21:39] LABS: ALLENS TEST YES-POS; INSPIRED O2 ROOM AIR; PATIENT TEMP 98.3; VENTILATOR NO
--- NOTE | 2019-12-21 21:42 | ED GI ---
General Chief Complaint: Respiratory Problems Stated Complaint: NAUSEA, LOOPY Nursing Triage Note: Pt c/o cough, SOB, nausea, and vomiting for three days. Pt c/o back and sacrum pain. Pt reports recent trips to [facility] and [facility]. Sepsis Screen: No Definite Risk Source of Information: Patient Exam Limitations: No Limitations History of Present Illness Date Seen by Provider: Dec 21, 2019 Time Seen by Provider: 21:10 Initial Comments Patient presents ER by private conveyance from home with chief complaint that for the past 3 days she's been having some nausea vomiting. She's also had a cough that become a little more productive. She's having some shortness of air but no fevers or chills. She has shortness of air at baseline. She typically relies on oxygen at home. Nursing reports she's 96-97% on room air in the ER. She does not have a history of COPD or asthma. She quit smoking 30 years ago. She does not follow a box toe flanger stitchdowns. 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 She has a history of stomach bleeds. She says in her vomiting she had not noticed any black or bright red blood. She does occasionally have to get blood transfusions because of her chronic bleeding. She is not on any blood thinners. She does not take aspirin or NSAIDs. She's not having any significant abdominal pain. She's been using Zofran 3 times today to attempt to control her nausea. No known sick contacts. She has multiple presentations for similar symptoms to the ER. Discussions have arose about hospice or correction placement which the patient declined at those times. Patient is a history of chronic baseline dementia and liver disease with hyperammonemia. Chronic nausea and vomiting. Failed to tolerate lactulose so she is on rifaximin. Primary care by Dr. Torres and nurse practitioner Jarad Louis. Allergies and Home Medications Allergies Coded Allergies: Vihideq-Skg-Xuc Reductase Inhibitor (Verified Allergy, Intermediate, GI UPSET, N/V, 11/06/17) cefadroxil (Unverified Allergy, Mild, 01/01/17) Sulfa (Sulfonamide Antibiotics) (Verified Allergy, Unknown, 06/18/18) oxycodone (Unverified Allergy, Unknown, 12/21/19) "makes skin crawl" Home Medications Acetaminophen 500 Mg Tablet, 500 MG PO Q4H PRN for PAIN-MILD (1-4), (Reported) Bumetanide 1 Mg Tablet, 1 MG PO DAILY, (Reported) Bumetanide 1 Mg Tablet, 1 MG PO DAILY PRN for SWELLING, (Reported) MAY TAKE AN ADDITIONAL DOSE IF NEEDED Cetirizine HCl 10 Mg Tablet, 10 MG PO DAILY, (Reported) Glucosa Hrone 2Kcl/Chondroitin Horne 1 Each Capsule, 1 CAP PO BID, (Reported) Insulin Aspart 300 Units/3 Ml Solution, 8 UNITS SQ AC, (Reported) Insulin NPH Human Isophane 100 Unit/1 Ml Vial, SQ AC, (Reported) LAST FILLED 09-05-2019 #10 VIALS SLIDING SCALE A Levofloxacin 500 Mg Tablet, 500 MG PO DAILY Prescribed by: MALLORIE FATIMA on 11/14/19 1634 Levothyroxine Sodium 125 Mcg Tablet, 125 MCG PO DAILY, (Reported) LAST FILLED 09-06-2019 #30 Magnesium Oxide 400 Mg Tablet, 400 MG PO BID, (Reported) Metoclopramide HCl 10 Mg Tablet, 10 MG PO BIDAC PRN for STOMACH UPSET, (Reported) Metolazone 5 Mg Tablet, 5 MG PO SUN,CARLENE PRN for WEIGHT>195, (Reported) Nitrofurantoin Monohyd/M-Cryst 100 Mg Capsule, 1 TAB PO BID WITH MEALS Prescribed by: TONIE CRAWFORD on 11/06/19 1014 Nitroglycerin 0.4 Mg Tab.subl, 0.4 MG SL UD PRN for CHEST PAIN, (Reported) Omeprazole 40 Mg Capsule.dr, 40 MG PO BID, (Reported) Promethazine HCl 25 Mg Tablet, 12.5 MG PO Q12H PRN for NAUSEA/VOMITING-2ND LINE, (Reported) Tizanidine HCl 2 Mg Tablet, 2 MG PO TID PRN for MUSCLE SPASMS, (Reported) Tramadol HCl 50 Mg Tablet, 50 MG PO TID PRN for PAIN-MODERATE, (Reported) [Folic Acid] , 1 MG PO DAILY, (Reported) LAST FILLED 09-11-2019 #30 Patient Home Medication List Home Medication List Reviewed: Yes Review of Systems Review of Systems Constitutional: No chills, No diaphoresis EENTM: No Blurred Vision, No Double Vision Respiratory: Cough, Shortness of Air Cardiovascular: Denies Chest Pain, Denies Edema Gastrointestinal: Denies Constipated, Denies Diarrhea, Denies Nausea Genitourinary: Denies Burning, Denies Discharge Musculoskeletal: No back pain, No joint pain Skin: No change in color, No dryness, No lumps, No pruritus, No rash Psychiatric/Neurological: Denies Headache, Denies Numbness Hematologic/Lymphatic: Anemia, Easy Bleeding All Other Systems Reviewed Negative Unless Noted: Yes Past Upaikty-Gqfuzx-Vhebbm Hx Patient Social History Alcohol Use: Denies Use Recreational Drug Use: No Smoking Status: Former Smoker Type Used: Cigarettes Former Smoker, Quit: May 20, 1980 2nd Hand Smoke Exposure: No Recent Foreign Travel: No Contact w/Someone Who Travel: No Recent Infectious Disease Expo: No Recent Hopitalizations: Yes Immunizations Up To Date Tetanus Booster (TDap): Unknown PED Vaccines UTD: Yes Date of Pneumonia Vaccine: May 16, 2019 Date of Influenza Vaccine: Apr 15, 2019 Seasonal Allergies Seasonal Allergies: Yes Past Medical History Surgeries: Yes Adenoidectomy, Cardiac, CABG, Coronary Stent, Open Heart Surgery, Orthopedic, Tonsillectomy, Tubal Ligation Respiratory: Yes (LEFT PLEURAL EFFUSION-S/P THORACENTESIS) Pneumonia, Sleep Apnea Currently Using CPAP: No Currently Using BIPAP: No Cardiac: Yes (CHF, STENT X1; CABG 02/16/2018 x 4 @ [facility];NSTEMI X 3) Atrial Fibrillation, Chronic Edema/Swelling, Coronary Artery Disease, Heart Attack, High Cholesterol, Hypertension Neurological: Yes (CHRONIC BASELINE CONFUSION) Dementia Reproductive Disorders: No Female Reproductive Disorders: Denies 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 LIVER DZ/ELEV AMMONIA) Gastroesophageal Reflux, Liver Disease/Jaundice, Gastrointestinal Bleed, Diverticulosis, Hemorrhoids, Polyps Musculoskeletal: Yes (POOR AMBULATION--USES WALKER SINCE CABG; L ANKLE AND KNEE SURGERIES) Degenerate Disk Disease, Arthritis, Chronic Back Pain, Fractures Endocrine: Yes (OBESITY) Diabetes, Insulin dep, Hypothyroidsim HEENT: No Loss of Vision: Denies Hearing Impairment: Denies Cancer: No Psychosocial: Yes Anxiety Integumentary: Yes Psoriasis Blood Disorders: Yes (CHRONIC ANEMIA-GI LOSS/GAVE SYNDROME; MULT TRANSFUSIONS/MULT ANTIBODIES) Adverse Reaction/Blood Tranf: Yes (Antibody JKA) Family Medical History Arthritis G8 BROTHER Completed stroke 19 MOTHER FH: anemia 19 MOTHER FH: lupus G8 SISTER FH: throat cancer 19 FATHER Hypertension G8 SISTER Myocardial infarction 19 MOTHER Thyroid disease 19 MOTHER G8 SISTER Hypertension, Stroke, Other Conditions/Hx PSH: -LEFT ANKLE SURGERY -LEFT KNEE SURGERY -CARDIAC CATHS--STENT X 1 -4 VESSEL CABG AT [facility] 02/16/18 -THORACENTESIS -TONSILLECTOMY/ADENOIDECTOMY -BTL Physical Exam Vital Signs Vital Signs - First Documented 12/21/19 21:21 Temp 37.0 Pulse 80 Resp 18 B/P (MAP) 115/68 (84) Pulse Ox 93 O2 Delivery Room Air Capillary Refill : Less Than 3 Seconds Height/Weight/BMI Height: 5'4.00" Weight: 196lbs. 5.0oz. 89.555460uk; 37.00 BMI Method:Stated General Appearance: WD/WN, mild distress HEENT: PERRL/EOMI, normal ENT inspection, TMs normal, pharynx normal Neck: full range of motion, normal inspection Respiratory: lungs clear, normal breath sounds, no respiratory distress, no accessory muscle use Cardiovascular: normal peripheral pulses, regular rate, rhythm, no edema Peripheral Pulses: 2+ Radial Pulses (R), 2+ Radial Pulses (L) Gastrointestinal: normal bowel sounds, soft, no organomegaly, tenderness (mild tenderness to palpation over the right upper and right lower quadrant abdomen.) Extremities: normal range of motion, non-tender, normal inspection, no pedal edema, normal capillary refill Neurologic/Psychiatric: alert, normal mood/affect Skin: normal color, warm/dry Focused Exam Lactate Level 12/21/19 21:00: Lactic Acid Level 1.26 Lactic Acid Level Laboratory Tests Test 12/21/19 21:00 Lactic Acid Level 1.26 MMOL/L (0.50-2.00) Procedures/Interventions Date of ETT Placement: May 30, 2018 Time of ETT Placement: 1330 Progress/Results/Core Measures Results/Orders Lab Results Laboratory Tests Test 12/21/19 21:00 12/21/19 21:30 12/21/19 21:40 Range/Units White Blood Count 5.8 4.3-11.0 10^3/uL Red Blood Count 2.96 L 4.35-5.85 10^6/uL Hemoglobin 9.1 L 11.5-16.0 G/DL Hematocrit 28 L 35-52 % Mean Corpuscular Volume 94 80-99 FL Mean Corpuscular Hemoglobin 31 25-34 PG Mean Corpuscular Hemoglobin Concent 33 32-36 G/DL Red Cell Distribution Width 16.8 H 10.0-14.5 % Platelet Count 164 130-400 10^3/uL Mean Platelet Volume 10.4 7.4-10.4 FL Neutrophils (%) (Auto) 58 42-75 % Lymphocytes (%) (Auto) 21 12-44 % Monocytes (%) (Auto) 12 0-12 % Eosinophils (%) (Auto) 9 0-10 % Basophils (%) (Auto) 1 0-10 % Neutrophils # (Auto) 3.4 1.8-7.8 X 10^3 Lymphocytes # (Auto) 1.2 1.0-4.0 X 10^3 Monocytes # (Auto) 0.7 0.0-1.0 X 10^3 Eosinophils # (Auto) 0.5 H 0.0-0.3 10^3/uL Basophils # (Auto) 0.0 0.0-0.1 10^3/uL Erythrocyte Sedimentation Rate 43 H 0-30 MM/HR Prothrombin Time 13.8 12.2-14.7 SEC INR Comment 1.0 0.8-1.4 Activated Partial Thromboplast Time 30 24-35 SEC Sodium Level 138 135-145 MMOL/L Potassium Level 4.2 3.6-5.0 MMOL/L Chloride Level 105 98-107 MMOL/L Carbon Dioxide Level 23 21-32 MMOL/L Anion Gap 10 5-14 MMOL/L Blood Urea Nitrogen 28 H 7-18 MG/DL Creatinine 2.40 H 0.60-1.30 MG/DL Estimat Glomerular Filtration Rate 20 BUN/Creatinine Ratio 12 Glucose Level 177 H 70-105 MG/DL Lactic Acid Level 1.26 0.50-2.00 MMOL/L Calcium Level 9.1 8.5-10.1 MG/DL Corrected Calcium 9.3 8.5-10.1 MG/DL Total Bilirubin 0.6 0.1-1.0 MG/DL Aspartate Amino Transf (AST/SGOT) 21 5-34 U/L Alanine Aminotransferase (ALT/SGPT) 14 0-55 U/L Alkaline Phosphatase 70 40-136 U/L Ammonia 104 H 11-32 UMOL/L C-Reactive Protein High Sensitivity 0.07 0.00-0.50 MG/DL Total Protein 7.1 6.4-8.2 GM/DL Albumin 3.7 3.2-4.5 GM/DL Procalcitonin 0.08 <0.10 NG/ML Blood Gas Puncture Site RT RADIAL Blood Gas Patient Temperature 98.3 Arterial Blood pH 7.43 7.37-7.43 Arterial Blood Partial Pressure CO2 39 35-45 MMHG Arterial Blood Partial Pressure O2 71 L 79-93 MMHG Arterial Blood HCO3 26 23-27 MMOL/L Arterial Blood Total CO2 27.0 21.0-31.0 MMOL/L Arterial Blood Oxygen Saturation 95 94-100 % Arterial Blood Base Excess 1.9 -2.5-2.5 MMOL/L Osvaldo Test YES-POS Blood Gas Ventilator Setting NO Blood Gas Inspired Oxygen ROOM AIR Urine Color YELLOW Urine Clarity CLEAR Urine pH 6.0 5-9 Urine Specific Wilson 1.020 1.016-1.022 Urine Protein NEGATIVE NEGATIVE Urine Glucose (UA) TRACE H NEGATIVE Urine Ketones NEGATIVE NEGATIVE Urine Nitrite NEGATIVE NEGATIVE Urine Bilirubin NEGATIVE NEGATIVE Urine Urobilinogen 0.2 < = 1.0 MG/DL Urine Leukocyte Esterase NEGATIVE NEGATIVE Urine RBC (Auto) NEGATIVE NEGATIVE Urine RBC NONE /HPF Urine WBC RARE /HPF Urine Squamous Epithelial Cells >50 H /HPF Urine Crystals NONE /LPF Urine Bacteria TRACE /HPF Urine Casts NONE /LPF Urine Mucus NEGATIVE /LPF Urine Culture Indicated NO My Orders Orders - HUSSAIN MOULTON Ondansetron Injection (Zofran Injectio (12/21/19 21:05) Cbc With Automated Diff (12/21/19 21:08) Comprehensive Metabolic Panel (12/21/19 21:08) Hs C Reactive Protein (12/21/19 21:08) Erythrocyte Sedimentation Rate (12/21/19 21:08) Procalcitonin (Pct) (12/21/19 21:08) Chest 1 View, Ap/Pa Only (12/21/19 21:08) Ua Culture If Indicated (12/21/19 21:08) Ammonia (12/21/19 21:08) Protime With Inr (12/21/19 21:08) Partial Thromboplastin Time (12/21/19 21:08) Blood Culture (12/21/19 21:08) Lactic Acid Analyzer (12/21/19 21:08) Arterial Blood Gas (12/21/19 21:30) Lactated Ringers (Lr 1000 Ml Iv Solution (12/21/19 21:45) Ct Abdomen/Pelvis Wo (12/21/19 22:06) Medications Given in ED Current Medications Medications Dose Ordered Sig/Roberth Route Start Time Stop Time Status Last Admin Dose Admin Lactated Ringer's 1,000 ml @ ud STK-MED ONCE IV 12/21/19 21:45 12/21/19 21:47 DC 12/21/19 21:54 1,000 MLS/HR Ondansetron HCl 4 mg STK-MED ONCE .ROUTE 12/21/19 21:05 12/21/19 21:07 DC 12/21/19 21:11 8 MG Vital Signs/I&O 12/21/19 21:21 Temp 37.0 Pulse 80 Resp 18 B/P (MAP) 115/68 (84) Pulse Ox 93 O2 Delivery Room Air Blood Pressure Mean: 84 Progress Progress Note #1: Time: 21:43 Progress Note Patient's hemoglobin and white count are stable. Plan to get a CT noncontrast since he has not been able to tolerate IV contrast in the past secondary to chronic kidney disease. If we can get IV contrast will take it. We'll look to rule out appendicitis cholecystitis. She has aseptic vital signs and a relatively benign abdominal exam. Because of her tenderness and age however it would be worth taking a look. Likely her symptoms are explained by her gastric antral vascular ectasia. We have given her 8 of Zofran. Liter of lactated Ringer's. Because of her cough and shortness of air although her hypoxia appears to be at baseline we'll get an ABG and swab her for COVID-19. Between her trips to and visits to the ER she could have had exposure. Progress Note #2: Time: 22:12 Progress Note After reviewing her labs it is felt that her nausea and vomiting is probably related to her ammonia level creeping up. We have encouraged her to continue her rifaximin and add some lactulose. Patient is cognizant enough that she should be able to take this on her own at home. Plan is CT to rule out any acute abdominal process before we allow her to discharge home. Patient is in agreement with this plan. She is to call her for a ride home. Diagnostic Imaging Diagonstic Imaging: Xray Plain Films/CT/US/NM/MRI: chest (1v) Comments [facility]. [place], [place] NAME: YOLETTE PISANO [facility] REC#: [id number] PT STATUS: REG ER : 1955 PHYSICIAN: HUSSAIN MOULOTN MD ADMIT DATE: 12/21/19/ER Signed Date of Exam:12/21/19 CHEST 1 VIEW, AP/PA ONLY INDICATION: Shortness of breath. COMPARISON: 12/05/2019. EXAMINATION: Single view of the chest was obtained. FINDINGS: Cardiac enlargement with central vascular congestion. The appendix is appearance is similar to prior exam. Minimal atelectasis seen at left base. There is no pneumothorax or effusion. Sternal wires are midline. Port-A-Cath is seen on the right. IMPRESSION: Cardiac enlargement with unchanged central vascular congestion. Dictated by: Dictated on workstation # [id number] Dict: 12/21/192128 Trans: 12/21/192206 [id number] Interpreted by: JOSE ANTONIO CESAR Electronically signed by: JOSE ANTONIO CESAR 12/21/192206 Reviewed: Reviewed by Me Diagonstic Imaging: CT Plain Films/CT/US/NM/MRI: abdomen, pelvis Comments Nonobstructive bowel gas pattern. No acute processes. Consolidation or consolidative atelectasis in the left lung base. No evidence of appendicitis. Reviewed: Reviewed Night [facility] Study, Reviewed by Me Departure Impression Primary Impression: Hyperammonemia Disposition: 01 HOME, SELF-CARE Condition: Stable Departure-Patient Inst. Decision time for Depature: 23:22 Referrals: JAMES TORRES MD (PCP/Family) Primary Care Physician Patient Instructions: Ammonia Blood Test, Lactulose Add. Discharge Instructions: Continue taking the rifaximin as prescribed. Start taking lactulose twice a day for the least the next 5 days. Ondansetron one to 2 tablets every 6 hours under the tongue as necessary to control your nausea and vomiting. We will call you if your COVID-19 swab is positive however you may also call ahead to Dr. Torres or Dr. Grace and their offices can check the results for you. Stay in your home until you have a negative result. Return to the ER if you develop new or worsening symptoms. All discharge instructions reviewed with patient and/or family. Voiced understanding. HUSSAIN MOULTON Dec 21, 2019 21:41
[2019-12-21] MEDS ORDERED: LACTATED RINGERS 1,000 ML IV ONE (21:45)
[2019-12-21 21:46] LABS: ALBUMIN 3.7 GM/DL (3.2-4.5); BILIRUBIN,TOTAL 0.6 MG/DL (0.1-1.0); CALCIUM 9.1 MG/DL (8.5-10.1); CREATININE SERUM 2.4 MG/DL (0.60-1.30); POTASSIUM 4.2 MMOL/L (3.6-5.0); TOTAL PROTEIN 7.1 GM/DL (6.4-8.2)
[2019-12-21 21:51] LABS: ERYTHROCYTE SEDIMENTATION RATE 43 MM/HR (0-30)
[2019-12-21 21:53] LABS: BILIRUBIN,URINE NEGATIVE (NEGATIVE); CLARITY,URINE CLEAR; COLOR,URINE YELLOW; GLUCOSE, URINE (UA) TRACE (NEGATIVE); KETONES,URINE NEGATIVE (NEGATIVE); LEUKOCYTE ESTERASE ,URINE NEGATIVE (NEGATIVE); NITRITE,URINE NEGATIVE (NEGATIVE); PROTEIN,URINE NEGATIVE (NEGATIVE)
[2019-12-21 22:01] LABS: BACTERIA,URINE TRACE /HPF; SQUAMOUS EPITHELIAL CELL,UR >50 /HPF; WBC,URINE RARE /HPF
--- NOTE | 2019-12-21 22:05 | NUR ---
Pt swabbed for COVID-19 at this time.
--- NOTE | 2019-12-21 22:06 | Diagnostic Imaging Report ---
INDICATION: Shortness of breath. COMPARISON: 12/05/2019. EXAMINATION: Single view of the chest was obtained. FINDINGS: Cardiac enlargement with central vascular congestion. The appendix is appearance is similar to prior exam. Minimal atelectasis seen at left base. There is no pneumothorax or effusion. Sternal wires are midline. Port-A-Cath is seen on the right. IMPRESSION: Cardiac enlargement with unchanged central vascular congestion. Dictated by: Dictated on workstation # [id number]
--- NOTE | 2019-12-21 23:03 | NUR ---
Report given to THOMPSON Richter to assume care of pt at this time.
[2019-12-21 23:36] VITALS: BP 112/50
--- NOTE | 2019-12-22 06:11 | Diagnostic Imaging Report ---
PROCEDURE: CT abdomen and pelvis without contrast. TECHNIQUE: Multiple contiguous axial images were obtained through the abdomen and pelvis without the use of intravenous contrast. Auto Exposure Controls were utilized during the CT exam to meet ALARA standards for radiation dose reduction. INDICATION: Nausea and vomiting for 3 days. COMPARISON: 11/02/2018. FINDINGS: The heart is enlarged. Consolidative opacities in the left lung base are improved compared to the prior exam. There is a subtle micronodular contour of the liver. No focal hepatic lesions are seen. The gallbladder is unremarkable. The spleen, pancreas, adrenal glands, and kidneys have a normal noncontrast CT appearance. There is no pathologically enlarged mesenteric or retroperitoneal adenopathy. The bowel loops are nondilated. The appendix is visualized in the right lower quadrant and has a normal appearance. A few scattered diverticuli are seen in the sigmoid colon without evidence of acute diverticulitis. There is no free fluid or free air. The osseous structures demonstrate no acute abnormalities. There is calcified aortic and iliac atherosclerotic plaque without aneurysm. The urinary bladder is nondistended. There is no free air, loculated collection, or adenopathy in the pelvis. IMPRESSION: 1. No acute abnormalities are seen in the abdomen and pelvis. No free fluid or free air. No bowel obstruction. 2. Scattered diverticuli in the sigmoid colon without evidence of acute diverticulitis. 3. Micronodular contour of the liver, suspicious for cirrhosis. Recommend correlation with LFTs. Contrast CT of the abdomen and pelvis should also be considered to evaluate for small lesions. 4. Interval improvement in consolidative opacities in the left lung base. These findings may represent chronic scarring. Superimposed acute process is not excluded. 5. Cardiomegaly. Dictated by: Dictated on workstation # [id number]
== END 2019-12-21 23:39 | disposition home or self-care (01) ==
LOC: EDUNIT# 20:35 → ER 20:36
DX: E72.20 Disorder of urea cycle metabolism, unspecified (principal); I10 Essential (primary) hypertension; I25.2 Old myocardial infarction; I25.10 Atherosclerotic heart disease of native coronary artery without angina pectoris; E11.9 Type 2 diabetes mellitus without complications; E66.9 Obesity, unspecified; E03.9 Hypothyroidism, unspecified; D50.0 Iron deficiency anemia secondary to blood loss (chronic); K21.9 Gastro-esophageal reflux disease without esophagitis; G89.29 Other chronic pain; M54.9 Dorsalgia, unspecified; Z79.891 Long term (current) use of opiate analgesic; Z20.828 Contact with and (suspected) exposure to other viral communicable diseases; Z88.8 Allergy status to other drugs, medicaments and biological substances; Z88.5 Allergy status to narcotic agent; Z79.890 Hormone replacement therapy; Z68.37 Body mass index [BMI] 37.0-37.9, adult; Z79.4 Long term (current) use of insulin; Z82.49 Family history of ischemic heart disease and other diseases of the circulatory system; Z80.8 Family history of malignant neoplasm of other organs or systems; Z88.1 Allergy status to other antibiotic agents; Z88.2 Allergy status to sulfonamides; Z87.891 Personal history of nicotine dependence
CPT/HCPCS: 36415; 71045; 74176; 80053; 81000; 82140; 82805; 83605; 84145; 85025; 85610; 85652; 85730; 86141; 87040

== ENCOUNTER 2020-01-06 09:08 | Outpatient (RCR) | payer MEDICARE ==
[2019-10-21 09:33] LABS: BASOPHILS % (AUTO) 1 % (0-10); EOSINOPHILS # (AUTO) 0.4 10^3/uL (0.0-0.3); EOSINOPHILS % (AUTO) 8 % (0-10); HEMATOCRIT 24 % (35-52); HEMOGLOBIN 7.4 G/DL (11.5-16.0); LYMPHOCYTES # (AUTO) 1.1 X 10^3 (1.0-4.0); LYMPHOCYTES % (AUTO) 20 % (12-44); MEAN CORPUSCULAR HGB CONC 31 G/DL (32-36); MEAN CORPUSCULAR VOLUME 97 FL (80-99); MEAN PLATELET VOLUME 10.5 FL (7.4-10.4); MONOCYTES # (AUTO) 0.4 X 10^3 (0.0-1.0); MONOCYTES % (AUTO) 9 % (0-12); NEUTROPHILS # (AUTO) 3.3 X 10^3 (1.8-7.8); NEUTROPHILS % (AUTO) 63 % (42-75); PLATELET COUNT 178 10^3/uL (130-400); RED CELL DISTRIBUTION WIDTH 13.5 % (10.0-14.5); WHITE BLOOD COUNT 5.2 10^3/uL (4.3-11.0)
[2019-10-21 09:35] LABS: MEAN CORPUSCULAR HEMOGLOBIN 30 PG (25-34)
[2019-11-03 13:37] LABS: BASOPHILS % (AUTO) 0 % (0-10); EOSINOPHILS # (AUTO) 0.2 10^3/uL (0.0-0.3); EOSINOPHILS % (AUTO) 4 % (0-10); HEMATOCRIT 22 % (35-52); HEMOGLOBIN 7.1 G/DL (11.5-16.0); LYMPHOCYTES # (AUTO) 0.9 X 10^3 (1.0-4.0); LYMPHOCYTES % (AUTO) 17 % (12-44); MEAN CORPUSCULAR HEMOGLOBIN 30 PG (25-34); MEAN CORPUSCULAR HGB CONC 32 G/DL (32-36); MEAN CORPUSCULAR VOLUME 94 FL (80-99); MEAN PLATELET VOLUME 9.7 FL (7.4-10.4); MONOCYTES # (AUTO) 0.6 X 10^3 (0.0-1.0); MONOCYTES % (AUTO) 11 % (0-12); NEUTROPHILS # (AUTO) 3.6 X 10^3 (1.8-7.8); NEUTROPHILS % (AUTO) 68 % (42-75); PLATELET COUNT 153 10^3/uL (130-400); RED CELL DISTRIBUTION WIDTH 12.8 % (10.0-14.5); WHITE BLOOD COUNT 5.3 10^3/uL (4.3-11.0)
[2019-11-11 12:26] LABS: BASOPHILS % (AUTO) 1 % (0-10); EOSINOPHILS # (AUTO) 0.3 10^3/uL (0.0-0.3); EOSINOPHILS % (AUTO) 8 % (0-10); HEMATOCRIT 27 % (35-52); HEMOGLOBIN 8.3 G/DL (11.5-16.0); LYMPHOCYTES # (AUTO) 0.8 X 10^3 (1.0-4.0); LYMPHOCYTES % (AUTO) 21 % (12-44); MEAN CORPUSCULAR HEMOGLOBIN 30 PG (25-34); MEAN CORPUSCULAR HGB CONC 31 G/DL (32-36); MEAN CORPUSCULAR VOLUME 97 FL (80-99); MEAN PLATELET VOLUME 10.2 FL (7.4-10.4); MONOCYTES # (AUTO) 0.3 X 10^3 (0.0-1.0); MONOCYTES % (AUTO) 9 % (0-12); NEUTROPHILS # (AUTO) 2.5 X 10^3 (1.8-7.8); NEUTROPHILS % (AUTO) 62 % (42-75); PLATELET COUNT 181 10^3/uL (130-400); RED CELL DISTRIBUTION WIDTH 13.4 % (10.0-14.5)
[2019-11-17 11:32] LABS: BASOPHILS % (AUTO) 1 % (0-10); EOSINOPHILS # (AUTO) 0.3 10^3/uL (0.0-0.3); EOSINOPHILS % (AUTO) 7 % (0-10); HEMATOCRIT 28 % (35-52); HEMOGLOBIN 8.6 G/DL (11.5-16.0); LYMPHOCYTES # (AUTO) 0.7 X 10^3 (1.0-4.0); LYMPHOCYTES % (AUTO) 16 % (12-44); MEAN CORPUSCULAR HEMOGLOBIN 29 PG (25-34); MEAN CORPUSCULAR HGB CONC 31 G/DL (32-36); MEAN CORPUSCULAR VOLUME 94 FL (80-99); MEAN PLATELET VOLUME 9.5 FL (7.4-10.4); MONOCYTES # (AUTO) 0.4 X 10^3 (0.0-1.0); MONOCYTES % (AUTO) 10 % (0-12); NEUTROPHILS # (AUTO) 2.6 X 10^3 (1.8-7.8); NEUTROPHILS % (AUTO) 67 % (42-75); PLATELET COUNT 191 10^3/uL (130-400); RED CELL DISTRIBUTION WIDTH 13.6 % (10.0-14.5)
[2019-12-09 10:19] LABS: BASOPHILS # (AUTO) 0.1 10^3/uL (0.0-0.1); BASOPHILS % (AUTO) 1 % (0-10); EOSINOPHILS # (AUTO) 0.4 10^3/uL (0.0-0.3); EOSINOPHILS % (AUTO) 8 % (0-10); HEMATOCRIT 30 % (35-52); HEMOGLOBIN 9.7 G/DL (11.5-16.0); LYMPHOCYTES # (AUTO) 0.8 X 10^3 (1.0-4.0); LYMPHOCYTES % (AUTO) 13 % (12-44); MEAN CORPUSCULAR HEMOGLOBIN 30 PG (25-34); MEAN CORPUSCULAR HGB CONC 32 G/DL (32-36); MEAN CORPUSCULAR VOLUME 91 FL (80-99); MEAN PLATELET VOLUME 9.9 FL (7.4-10.4); MONOCYTES # (AUTO) 0.6 X 10^3 (0.0-1.0); MONOCYTES % (AUTO) 11 % (0-12); NEUTROPHILS # (AUTO) 3.8 X 10^3 (1.8-7.8); NEUTROPHILS % (AUTO) 67 % (42-75); PLATELET COUNT 179 10^3/uL (130-400); RED CELL DISTRIBUTION WIDTH 14.7 % (10.0-14.5); WHITE BLOOD COUNT 5.7 10^3/uL (4.3-11.0)
[~2020-01-06 09:08] MED LIST changes: +CYANOCOBALAMIN INJ 1000 MCG/ML (CANCER CENTER) ONE; +DARBEPOETIN 40 MCG/ML (ARANESP) 1 ML VIAL SC SCH; +FERRIC CARBOXYMALTOSE (CANCER) 750 MG in NS (IVPB) CANCER CENTER 250 ML IV SCH; +NS IV 500 ML (CANCER CENTER) 500 ML ONE
[2020-01-06 09:26] LABS: BASOPHILS % (AUTO) 1 % (0-10); EOSINOPHILS # (AUTO) 0.4 10^3/uL (0.0-0.3); EOSINOPHILS % (AUTO) 13 % (0-10); HEMATOCRIT 26 % (35-52); LYMPHOCYTES # (AUTO) 0.7 X 10^3 (1.0-4.0); LYMPHOCYTES % (AUTO) 23 % (12-44); MEAN CORPUSCULAR HEMOGLOBIN 30 PG (25-34); MEAN CORPUSCULAR HGB CONC 31 G/DL (32-36); MEAN CORPUSCULAR VOLUME 97 FL (80-99); MEAN PLATELET VOLUME 9.5 FL (7.4-10.4); MONOCYTES # (AUTO) 0.3 X 10^3 (0.0-1.0); MONOCYTES % (AUTO) 12 % (0-12); NEUTROPHILS # (AUTO) 1.5 X 10^3 (1.8-7.8); NEUTROPHILS % (AUTO) 51 % (42-75); PLATELET COUNT 124 10^3/uL (130-400)
[2020-01-10] MEDS ORDERED: DOXY100T2 PO (17:42)
[2020-01-20 11:38] LABS: BASOPHILS # (AUTO) 0.1 10^3/uL (0.0-0.1); BASOPHILS % (AUTO) 2 % (0-10); EOSINOPHILS # (AUTO) 0.7 10^3/uL (0.0-0.3); EOSINOPHILS % (AUTO) 13 % (0-10); HEMATOCRIT 30 % (35-52); HEMOGLOBIN 9.6 G/DL (11.5-16.0); LYMPHOCYTES # (AUTO) 1.1 X 10^3 (1.0-4.0); LYMPHOCYTES % (AUTO) 20 % (12-44); MEAN CORPUSCULAR HEMOGLOBIN 31 PG (25-34); MEAN CORPUSCULAR HGB CONC 32 G/DL (32-36); MEAN CORPUSCULAR VOLUME 96 FL (80-99); MEAN PLATELET VOLUME 10.1 FL (7.4-10.4); MONOCYTES # (AUTO) 0.6 X 10^3 (0.0-1.0); MONOCYTES % (AUTO) 12 % (0-12); NEUTROPHILS # (AUTO) 2.9 X 10^3 (1.8-7.8); NEUTROPHILS % (AUTO) 54 % (42-75); PLATELET COUNT 182 10^3/uL (130-400); RED CELL DISTRIBUTION WIDTH 14.8 % (10.0-14.5); WHITE BLOOD COUNT 5.5 10^3/uL (4.3-11.0)
== END 2020-01-19 | disposition home or self-care (01) ==
LOC: ONC 09:08
PROVIDERS: ATTEND Internal Medicine Hematology & Oncology
DX: E11.22 Type 2 diabetes mellitus with diabetic chronic kidney disease (principal); I13.0 Hypertensive heart and chronic kidney disease with heart failure and stage 1 through stage 4 chronic kidney disease, or unspecified chronic kidney disease; N18.4 Chronic kidney disease, stage 4 (severe); D63.1 Anemia in chronic kidney disease; E53.8 Deficiency of other specified B group vitamins; D50.9 Iron deficiency anemia, unspecified; I25.10 Atherosclerotic heart disease of native coronary artery without angina pectoris; E03.9 Hypothyroidism, unspecified; K29.51 Unspecified chronic gastritis with bleeding; I48.91 Unspecified atrial fibrillation; K74.60 Unspecified cirrhosis of liver; I50.30 Unspecified diastolic (congestive) heart failure; K64.9 Unspecified hemorrhoids; K44.9 Diaphragmatic hernia without obstruction or gangrene; E78.5 Hyperlipidemia, unspecified; E66.9 Obesity, unspecified; M19.90 Unspecified osteoarthritis, unspecified site; I47.1 Supraventricular tachycardia; K63.5 Polyp of colon; K31.811 Angiodysplasia of stomach and duodenum with bleeding; Z79.899 Other long term (current) drug therapy; Z80.0 Family history of malignant neoplasm of digestive organs; Z68.33 Body mass index [BMI] 33.0-33.9, adult
CPT/HCPCS: 36430 ×2; 85025; 86850; 86900; 86901; 86902; 86922; P9016; 36415; 36591; 71045; 80053; 81000; 82140; 82962; 83605; 85007; 85027; 85610; 85730; 87040; 87077; 87088; 87186; 96365; 96372

== ENCOUNTER 2020-01-06 09:18 | Outpatient (RCR) | payer MEDICARE ==
[~2020-01-06 09:18] MED LIST changes: +ASPI-1238 PO; -ASPI-983 PO; -CETI10TA21 PO; +CETI10TA49 PO; -CYANOCOBALAMIN INJ 1000 MCG/ML (CANCER CENTER) ONE; -DARBEPOETIN 40 MCG/ML (ARANESP) 1 ML VIAL SC SCH; -FERRIC CARBOXYMALTOSE (CANCER) 750 MG in NS (IVPB) CANCER CENTER 250 ML IV SCH; -NS IV 500 ML (CANCER CENTER) 500 ML ONE; -PANT40TA3 PO; +PANT40TA52 PO
[2020-01-06 09:49] LABS: CALCIUM 8.7 MG/DL (8.5-10.1); CREATININE SERUM 1.88 MG/DL (0.60-1.30); MAGNESIUM 2.2 MG/DL (1.6-2.4); POTASSIUM 4.1 MMOL/L (3.6-5.0)
[2020-01-10] MEDS ORDERED: DOXY100T2 PO (17:42)
== END 2020-04-05 | disposition home or self-care (01) ==
LOC: LAB 09:18
PROVIDERS: ATTEND Internal Medicine Advanced Heart Failure and Transplant Cardiology
DX: I48.0 Paroxysmal atrial fibrillation (principal); I50.32 Chronic diastolic (congestive) heart failure; D64.9 Anemia, unspecified
CPT/HCPCS: 36415; 80048; 83735; 83880

== ENCOUNTER 2020-01-10 16:08 | Emergency (ER) | payer MEDICARE ==
[~2020-01-10] VITALS: Ht 162 cm; Wt 99.0 kg
[~2020-01-10 16:08] MED LIST changes: -ASPI-1238 PO; +ASPI-983 PO; +CETI10TA21 PO; -CETI10TA49 PO; +PANT40TA3 PO; -PANT40TA52 PO
--- NOTE | 2020-01-10 16:21 | ED General ---
General Stated Complaint: SOB Source of Information: Patient Exam Limitations: No Limitations History of Present Illness Date Seen by Provider: Jan 10, 2020 Time Seen by Provider: 16:16 Initial Comments 64-year-old female presents with low heart rate, shortness of breath. Patient reports she's felt short of breath about 3 days. That she went to her regular doctor and was found to have her heart rate in the 40s. Patient does not have any medication to slow her heart down. She does have similar manner chronic medical conditions with frequent anemia with frequent blood transfusions. Patient denies any fevers or chills. Patient does have a mild cough. She has chronic nausea and vomiting. Allergies and Home Medications Allergies Coded Allergies: Xymzvuo-Sjg-Rqw Reductase Inhibitor (Verified Allergy, Intermediate, GI UPSET, N/V, 11/06/17) cefadroxil (Unverified Allergy, Mild, 01/01/17) Sulfa (Sulfonamide Antibiotics) (Verified Allergy, Unknown, 06/18/18) oxycodone (Unverified Allergy, Unknown, 12/21/19) "makes skin crawl" Home Medications Acetaminophen 500 Mg Tablet, 500 MG PO Q4H PRN for PAIN-MILD (1-4), (Reported) Bumetanide 1 Mg Tablet, 1 MG PO DAILY, (Reported) Bumetanide 1 Mg Tablet, 1 MG PO DAILY PRN for SWELLING, (Reported) MAY TAKE AN ADDITIONAL DOSE IF NEEDED Cetirizine HCl 10 Mg Tablet, 10 MG PO DAILY, (Reported) Doxycycline Hyclate 100 Mg Tablet, 100 MG PO BID Prescribed by: BORIS JOLLEY on 01/10/20 174 Glucosa Horne 2Kcl/Chondroitin Horne 1 Each Capsule, 1 CAP PO BID, (Reported) Insulin Aspart 300 Units/3 Ml Solution, 8 UNITS SQ AC, (Reported) Insulin NPH Human Isophane 100 Unit/1 Ml Vial, SQ AC, (Reported) LAST FILLED 09-05-2019 #10 VIALS SLIDING SCALE A Levofloxacin 500 Mg Tablet, 500 MG PO DAILY Prescribed by: MALLORIE FATIMA on 11/14/19 1634 Levothyroxine Sodium 125 Mcg Tablet, 125 MCG PO DAILY, (Reported) LAST FILLED 09-06-2019 #30 Magnesium Oxide 400 Mg Tablet, 400 MG PO BID, (Reported) Metoclopramide HCl 10 Mg Tablet, 10 MG PO BIDAC PRN for STOMACH UPSET, (Reported) Metolazone 5 Mg Tablet, 5 MG PO SUN,CARLENE PRN for WEIGHT>195, (Reported) Nitrofurantoin Monohyd/M-Cryst 100 Mg Capsule, 1 TAB PO BID WITH MEALS Prescribed by: TONIE CRAWFORD on 11/06/19 1014 Nitroglycerin 0.4 Mg Tab.subl, 0.4 MG SL UD PRN for CHEST PAIN, (Reported) Omeprazole 40 Mg Capsule.dr, 40 MG PO BID, (Reported) Promethazine HCl 25 Mg Tablet, 12.5 MG PO Q12H PRN for NAUSEA/VOMITING-2ND LINE, (Reported) Tizanidine HCl 2 Mg Tablet, 2 MG PO TID PRN for MUSCLE SPASMS, (Reported) Tramadol HCl 50 Mg Tablet, 50 MG PO TID PRN for PAIN-MODERATE, (Reported) [Folic Acid] , 1 MG PO DAILY, (Reported) LAST FILLED 09-11-2019 #30 Patient Home Medication List Home Medication List Reviewed: Yes Review of Systems Review of Systems Constitutional: No chills, No fever Respiratory: cough, short of breath Cardiovascular: No chest pain Gastrointestinal: No abdominal pain, No diarrhea, No nausea, No vomiting Genitourinary: no symptoms reported Musculoskeletal: No back pain Skin: no symptoms reported Psychiatric/Neurological: No Symptoms Reported Past Bjycund-Vqpxfh-Hcxgbe Hx Past Med/Social Hx: Reviewed Nursing Past Med/Soc Hx Patient Social History Type Used: Cigarettes Former Smoker, Quit: May 20, 1980 2nd Hand Smoke Exposure: No Recent Foreign Travel: No Contact w/Someone Who Travel: No Recent Hopitalizations: Yes Immunizations Up To Date Tetanus Booster (TDap): Unknown PED Vaccines UTD: Yes Date of Pneumonia Vaccine: May 16, 2019 Date of Influenza Vaccine: Apr 15, 2019 Seasonal Allergies Seasonal Allergies: Yes Past Medical History Surgeries: Yes Adenoidectomy, Cardiac, CABG, Coronary Stent, Open Heart Surgery, Orthopedic, Tonsillectomy, Tubal Ligation Respiratory: Yes (LEFT PLEURAL EFFUSION-S/P THORACENTESIS) Pneumonia, Sleep Apnea Currently Using CPAP: No Currently Using BIPAP: No Cardiac: Yes (CHF, STENT X1; CABG 02/16/2018 x 4 @ [facility];NSTEMI X 3) Atrial Fibrillation, Chronic Edema/Swelling, Coronary Artery Disease, Heart Attack, High Cholesterol, Hypertension Neurological: Yes (CHRONIC BASELINE CONFUSION) Dementia Reproductive Disorders: No Female Reproductive Disorders: Denies 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 LIVER DZ/ELEV AMMONIA) Gastroesophageal Reflux, Liver Disease/Jaundice, Gastrointestinal Bleed, Diverticulosis, Hemorrhoids, Polyps Musculoskeletal: Yes (POOR AMBULATION--USES WALKER SINCE CABG; L ANKLE AND KNEE SURGERIES) Degenerate Disk Disease, Arthritis, Chronic Back Pain, Fractures Endocrine: Yes (OBESITY) Diabetes, Insulin dep, Hypothyroidsim HEENT: No Loss of Vision: Denies Hearing Impairment: Denies Cancer: No Psychosocial: Yes Anxiety Integumentary: Yes Psoriasis Blood Disorders: Yes (CHRONIC ANEMIA-GI LOSS/GAVE SYNDROME; MULT TRANS FUSIONS/MULT ANTIBODIES) Adverse Reaction/Blood Tranf: Yes (Antibody JKA) Family Medical History Arthritis G8 BROTHER Completed stroke 19 MOTHER FH: anemia 19 MOTHER FH: lupus G8 SISTER FH: throat cancer 19 FATHER Hypertension G8 SISTER Myocardial infarction 19 MOTHER Thyroid disease 19 MOTHER G8 SISTER Hypertension, Stroke, Other Conditions/Hx PSH: -LEFT ANKLE SURGERY -LEFT KNEE SURGERY -CARDIAC CATHS--STENT X 1 -4 VESSEL CABG AT [facility] 02/16/18 -THORACENTESIS -TONSILLECTOMY/ADENOIDECTOMY -BTL Physical Exam Vital Signs Vital Signs - First Documented 01/10/20 16:16 Temp 36.8 Pulse 82 Resp 20 B/P (MAP) 140/57 (84) Pulse Ox 96 O2 Delivery Room Air Capillary Refill : Height, Weight, BMI Height: 5'4.00" Weight: 196lbs. 5.0oz. 89.960424wj; 37.00 BMI Method:Stated General Appearance: No Apparent Distress HEENT: Pharynx Normal, Moist Mucous Membranes Neck: Non Tender Respiratory: Normal Breath Sounds, Decreased Breath Sounds (mild) Cardiovascular: Regular Rate, Rhythm, Normal Peripheral Pulses Gastrointestinal: Non Tender, Soft Extremity: Normal Inspection, Normal Range of Motion Neurologic/Psychiatric: Alert, Oriented x3, Normal Mood/Affect, drapery worker II-XII Norm as Tested Skin: Normal Color, Warm/Dry Procedures/Interventions Date of ETT Placement: May 30, 2018 Time of ETT Placement: 1330 Progress/Results/Core Measures Suspected Sepsis SIRS Temperature: Pulse: Respiratory Rate: Laboratory Tests 7/28/20 16:30: White Blood Count 3.4L Blood Pressure / Mean: Laboratory Tests 01/10/20 16:30: Creatinine 2.21H, Platelet Count 144, Total Bilirubin 0.5 Results/Orders Lab Results Laboratory Tests Test 01/10/20 16:30 Range/Units White Blood Count 3.4 L 4.3-11.0 10^3/uL Red Blood Count 2.62 L 4.35-5.85 10^6/uL Hemoglobin 8.2 L 11.5-16.0 G/DL Hematocrit 25 L 35-52 % Mean Corpuscular Volume 97 80-99 FL Mean Corpuscular Hemoglobin 31 25-34 PG Mean Corpuscular Hemoglobin Concent 32 32-36 G/DL Red Cell Distribution Width 15.3 H 10.0-14.5 % Platelet Count 144 130-400 10^3/uL Mean Platelet Volume 9.9 7.4-10.4 FL Neutrophils (%) (Auto) 50 42-75 % Lymphocytes (%) (Auto) 25 12-44 % Monocytes (%) (Auto) 12 0-12 % Eosinophils (%) (Auto) 11 H 0-10 % Basophils (%) (Auto) 2 0-10 % Neutrophils # (Auto) 1.7 L 1.8-7.8 X 10^3 Lymphocytes # (Auto) 0.8 L 1.0-4.0 X 10^3 Monocytes # (Auto) 0.4 0.0-1.0 X 10^3 Eosinophils # (Auto) 0.4 H 0.0-0.3 10^3/uL Basophils # (Auto) 0.1 0.0-0.1 10^3/uL Urine Color YELLOW Urine Clarity CLEAR Urine pH 6.5 5-9 Urine Specific [place] 1.010 L 1.016-1.022 Urine Protein NEGATIVE NEGATIVE Urine Glucose (UA) NEGATIVE NEGATIVE Urine Ketones NEGATIVE NEGATIVE Urine Nitrite NEGATIVE NEGATIVE Urine Bilirubin NEGATIVE NEGATIVE Urine Urobilinogen 0.2 < = 1.0 MG/DL Urine Leukocyte Esterase NEGATIVE NEGATIVE Urine RBC (Auto) NEGATIVE NEGATIVE Urine RBC NONE /HPF Urine WBC 2-5 /HPF Urine Crystals NONE /LPF Urine Bacteria FEW H /HPF Urine Casts NONE /LPF Urine Mucus NEGATIVE /LPF Urine Yeast MODERATE H /HPF Urine Culture Indicated YES Sodium Level 140 135-145 MMOL/L Potassium Level 4.3 3.6-5.0 MMOL/L Chloride Level 107 98-107 MMOL/L Carbon Dioxide Level 24 21-32 MMOL/L Anion Gap 9 5-14 MMOL/L Blood Urea Nitrogen 31 H 7-18 MG/DL Creatinine 2.21 H 0.60-1.30 MG/DL Estimat Glomerular Filtration Rate 22 BUN/Creatinine Ratio 14 Glucose Level 160 H 70-105 MG/DL Calcium Level 9.1 8.5-10.1 MG/DL Corrected Calcium 9.3 8.5-10.1 MG/DL Magnesium Level 2.2 1.6-2.4 MG/DL Total Bilirubin 0.5 0.1-1.0 MG/DL Aspartate Amino Transf (AST/SGOT) 17 5-34 U/L Alanine Aminotransferase (ALT/SGPT) 10 0-55 U/L Alkaline Phosphatase 74 40-136 U/L Troponin I < 0.028 <0.028 NG/ML B-Type Natriuretic Peptide 194.2 H <100.0 PG/ML Total Protein 7.0 6.4-8.2 GM/DL Albumin 3.7 3.2-4.5 GM/DL Thyroid Stimulating Hormone (TSH) 4.25 0.35-4.94 UIU/ML Micro Results Microbiology 01/10/20 Urine Culture - Final, Complete 3 or more isolates My Orders Orders - BORIS JOLLEY DO Chest 1 View, Ap/Pa Only (01/10/20 16:26) BNP (01/10/20 16:26) Cbc With Automated Diff (01/10/20 16:26) Comprehensive Metabolic Panel (01/10/20 16:26) Magnesium (01/10/20 16:26) Thyroid Stimulating Hormone (01/10/20 16:26) Troponin I (01/10/20 16:26) Ua Culture If Indicated (01/10/20 16:26) Monitor-Rhythm Ecg Trace Only (01/10/20 16:26) Ekg-Prn For Chest Pain Or Rhyt (01/10/20 16:37) Urine Culture (01/10/20 16:30) Vital Signs/I&O Capillary Refill : Progress Note : Progress Note Patient with what appears to be an early developing pneumonia. We'll start her on antibiotics. Patient will be discharged home in stable condition. She should follow-up with her primary care provider and a couple days. ECG Initial ECG Impression Date: Jan 10, 2020 Initial ECG Impression Time: 16:41 Initial ECG Rate: 62 Initial ECG Impression: Nonspecific Changes Comment sinus arrhythmia Departure Impression Primary Impression: Pneumonia Qualified Codes: J18.1 - Lobar pneumonia, unspecified organism Additional Impression: Pulmonary edema Qualified Codes: J81.0 - Acute pulmonary edema Disposition: HOME, SELF-CARE Condition: Stable Departure-Patient Inst. Referrals: JAMES TORRES MD (PCP/Family) Primary Care Physician Patient Instructions: Pneumonia, Adult (DC), Atypical Pneumonia (Mycoplasma and Viral) (DC) Add. 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
[2020-01-10 16:56] LABS: BASOPHILS # (AUTO) 0.1 10^3/uL (0.0-0.1); BASOPHILS % (AUTO) 2 % (0-10); BILIRUBIN,URINE NEGATIVE (NEGATIVE); CLARITY,URINE CLEAR; COLOR,URINE YELLOW; EOSINOPHILS # (AUTO) 0.4 10^3/uL (0.0-0.3); EOSINOPHILS % (AUTO) 11 % (0-10); GLUCOSE, URINE (UA) NEGATIVE (NEGATIVE); HEMATOCRIT 25 % (35-52); HEMOGLOBIN 8.2 G/DL (11.5-16.0); KETONES,URINE NEGATIVE (NEGATIVE); LEUKOCYTE ESTERASE ,URINE NEGATIVE (NEGATIVE); LYMPHOCYTES # (AUTO) 0.8 X 10^3 (1.0-4.0); LYMPHOCYTES % (AUTO) 25 % (12-44); MEAN CORPUSCULAR HEMOGLOBIN 31 PG (25-34); MEAN CORPUSCULAR HGB CONC 32 G/DL (32-36); MEAN CORPUSCULAR VOLUME 97 FL (80-99); MEAN PLATELET VOLUME 9.9 FL (7.4-10.4); MONOCYTES # (AUTO) 0.4 X 10^3 (0.0-1.0); MONOCYTES % (AUTO) 12 % (0-12); NEUTROPHILS # (AUTO) 1.7 X 10^3 (1.8-7.8); NEUTROPHILS % (AUTO) 50 % (42-75); NITRITE,URINE NEGATIVE (NEGATIVE); PH,URINE 6.5 (5-9); PLATELET COUNT 144 10^3/uL (130-400); PROTEIN,URINE NEGATIVE (NEGATIVE); RED CELL DISTRIBUTION WIDTH 15.3 % (10.0-14.5); WHITE BLOOD COUNT 3.4 10^3/uL (4.3-11.0)
[2020-01-10 17:02] LABS: ALBUMIN 3.7 GM/DL (3.2-4.5); CHLORIDE 107 MMOL/L (98-107); POTASSIUM 4.3 MMOL/L (3.6-5.0); SODIUM 140 MMOL/L (135-145)
[2020-01-10 17:03] LABS: CALCIUM 9.1 MG/DL (8.5-10.1)
[2020-01-10 17:04] LABS: GLUCOSE 160 MG/DL (70-105)
[2020-01-10 17:05] LABS: CARBON DIOXIDE 24 MMOL/L (21-32)
[2020-01-10 17:06] LABS: BILIRUBIN,TOTAL 0.5 MG/DL (0.1-1.0)
[2020-01-10 17:07] LABS: ALKALINE PHOSPHATASE 74 U/L (40-136)
[2020-01-10 17:08] LABS: CREATININE SERUM 2.21 MG/DL (0.60-1.30); GFR ESTIMATED 22
[2020-01-10 17:09] LABS: BUN/CREATININE RATIO 14
[2020-01-10 17:10] LABS: MAGNESIUM 2.2 MG/DL (1.6-2.4)
[2020-01-10 17:11] LABS: ALANINE AMINOTRANSFERASE 10 U/L (0-55)
[2020-01-10 17:22] LABS: BACTERIA,URINE FEW /HPF
[2020-01-10 17:23] LABS: YEAST,URINE MODERATE /HPF
--- NOTE | 2020-01-10 17:24 | Diagnostic Imaging Report ---
EXAM: Portable erect AP chest at 5:06 PM INDICATION: Shortness of breath FINDINGS: The cardiomegaly and the sternotomy wires and surgical clips noted on the prior exam of 12/21/2019 are again visualized and no different. The central pulmonary vascularity is prominent and most likely there is still an element of mild pulmonary congestion present. Furthermore, the atelectasis/infiltrate in the left lung base does seem somewhat greater than on the prior exam. A new area of atelectasis/pneumonia has also developed in the right lung base. The upper lungs are generally clear. The mediastinum is not widened. The osseous structures are intact. The right-sided Port-A-Cath is unchanged in position. IMPRESSION: The appearance of the chest has worsened somewhat since the prior study as there is greater involvement of both lung bases by atelectasis/pneumonia. There is also persistent cardiomegaly and pulmonary congestion. A followup study would be recommended for continued evaluation. Dictated by: Dictated on workstation # [id number]
[2020-01-10] MEDS ORDERED: DOXY100T2 PO (17:42)
[2020-01-10 18:00] VITALS: BP 135/59
--- OUTSIDE RECORDS SUMMARY | 2020-01-10 20:44 | XMS REPORT | Clinical Summary ---
Author Author [facility] Organization [facility] Address Unknown Phone Unavailable Care Team Providers Care Black Top Paver Operator Name Role Phone Carla Wilson MD PCP Naima Field MD Unavailable Winnie Jorge MD Unavailable Emiliano Rodriguez APRN-LABORATORY TECHNOLOGY TEACHER 7 Felisa Sneed MD 3 Source Comments Some departments are not documenting in the electronic medical record. If you d o not see the information that you expected, contact Release of Information in state [facility] facility Health Information Management department at [phone] for further assistan ce in locating additional records.[facility] Allergies Comments Active Allergy Reactions Severity [...] 40 mg capsule mouth twice daily. Active cetirizine (ZYRTEC) 10 mg Take 10 [...] aspart U-100 Inject four 10 mL 30 02/27 (NOVOLOG) 100 unit/mL Units under 8 injection the skin three times daily with meals. Active Insulin Syringe-Needle Use four 100 each 0 U-100 (BD INSULIN SYRINGE times daily 8 ULTRA-FINE) 0.3 mL 31 with Insulin gauge x 5/16 syrg Active clobetasol (TEMOVATE) Apply to 0 02/06/20 1 0.05 % topical cream affected area 7 twice daily as needed Active diphenhydrAMINE (BENADRYL Take 25 mg by 0 ALLERGY) 25 mg tablet mouth every 6 hours as needed for Sleep. Active hhuwfxmo-bvwnsjotb-F-doug Take 500 mg 0 anese 500-400-2-0.33 mg by mouth cap twice daily. Active magnesium oxide (MAG-OX) TAKE ONE (1) 180 tablet 3 400 mg (241.3 mg TABLET BY 9 magnesium) tablet MOUTH TWICE DAILY Active metOLazone (ZAROXOLYN) 5 Take one 24 tablet 3 0 mg tablet tablet by 0 mouth twice weekly. 1 hour before morning bumex. Only take if weight is above 195 pounds. Active bumetanide (BUMEX) 1 mg TAKE TWO (2) 60 tablet 2 0 tablet TABLETS BY 0 MOUTH TWICE DAILY Active tiZANidine (ZANAFLEX) 2 Take 1 tablet 0 mg tablet by mouth 0 three times daily as needed. Active promethazine (PHENERGAN) Take 12.5 mg 0 11/08 12.5 mg tablet by mouth 0 every 12 hours as needed. Active nitrofurantoin Take 100 mg 0 macrocrystaL by mouth (MACRODANTIN) 100 mg twice daily. capsule Take with food. Active metoclopramide (REGLAN) Take 1 tablet 0 10 mg tablet by mouth 0 twice daily as needed. Active levothyroxine (SYNTHROID) Take 125 mcg 0 125 mcg tablet by mouth daily 30 minutes before breakfast. 01/02/2020 Discontinued (Patient's Bernal ce) ondansetron (ZOFRAN) 8 mg Take 8 mg by 0 tablet mouth every 8 hours as needed for Nausea or Vomiting. 01/02/2020 Discontinued (Dose adjustmen t) tiZANidine (ZANAFLEX) 4 Take 4 mg by 0 mg tablet mouth at bedtime daily. 01/02/2020 Discontinued (Dose adjustmen t) levothyroxine (SYNTHROID) Take 175 mcg 0 175 mcg tablet by mouth every 48 hours. 01/02/2020 Discontinued (Other) prochlorperazine maleate Take 10 mg by 0 (COMPAZINE) 10 mg tablet mouth every 6 hours as needed for Nausea or Vomiting. 01/02/2020 Discontinued (Other) metoprolol tartrate Take one-half 45 tablet 3 02/14 (LOPRESSOR) 25 mg tablet tablet by 9 mouth twice daily. 12/15/2019 Discontinued bumetanide (BUMEX) 1 mg Take two 60 tablet 2 tablet tablets by 0 mouth twice daily. 01/02/2020 Discontinued (Patient's Bernal ce) rifAXIMin (XIFAXAN) 550 Take 550 mg 0 mg tablet by mouth every 12 hours. Active Problems Problem Noted Date CKD 09/30/2018 Morbid obesity 06/01/2018 Acute on chronic diastolic heart failure due to coron elena artery disease 03/31/2018 Chronic diastolic heart failure 03/31/2018 Long's esophagus 03/30/2018 Left leg cellulitis 03/29/2018 Pleural effusion on left 03/26/2018 Essential hypertension 02/23/2018 DELROY (acute kidney injury) 02/18/2018 CAD (coronary artery disease), [place] coronary artery 02/16/2018 Overview: 02/16/18: CABG x4 [...] 11/13/2017 Overview: Added automatically from [facility] for [facility] [id number] Resolved Problems Problem Noted Date Resolved Date [...] Encounters Care Team Description Date Type Specialty Felisa Sneed MD Follow Up 01/03/2020 Scheduled Cardiology Telephone Lynette Diana MD Other 12/19/2019 Telephone Hepatology Felisa Sneed MD Medication Refill 12/13/2019 Refill Cardiology Lynette Diana MD Cirrhosis of liver without ascites, unsp ecified hepatic cirrhosis type (HCC) (Primary Dx); Morbid obesity (HCC); Acute on chronic diastolic heart failure due to coronary artery disease (HCC); Hepatic encephalopathy (HCC); Stage 3 chronic kidney disease (HCC); Chronic anemia 12/08/2019 Office Visit Hepatology Rina Ruano MA Appointment 12/08/2019 Telephone Cardiology 12/08/2019 Travel Estrella Chauhan LPN 12/07/2019 Telephone Cardiology Lynette Diana MD Appointment Question 11/08/2019 Telephone Hepatology from Last 3 Months Immunizations Name Administration [...] Used Drinks/Week oz/Week Comments Alcohol Use Seldom Not Currently Sex Assigned at Date Recorded Not on file Industry Job Start Date Occupation Not on file Not on file Not on file Travel End Travel History Travel Start No recent travel history available. Last Filed Vital Signs Reading Time Taken Comments Vital Sign 98/42 01/02/2020 12:54 PM CDT Blood Pressure 64 01/02/2020 12:54 PM CDT Pulse 36.8 C (98.2 F) 12/08/2019 11:53 AM CDT Temperature 16 12/08/2019 11:53 AM CDT Respiratory Rate 94% 01/02/2020 12:54 PM CDT Oxygen Saturation - - Inhaled Oxygen Concentration 98 kg (216 lb) 01/02/2020 12:54 PM CDT Weight 162.6 cm (5' 4") 01/02/2020 12:54 PM CDT Height 37.08 01/02/2020 12:54 PM CDT Body Mass Index Plan of Treatment [...] placed at OSH. Power injectable confirmed by pradeep. 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
--- OUTSIDE RECORDS SUMMARY | 2020-01-10 20:44 | XMS REPORT | Encounter Summary ---
Author Author [facility] Organization [facility] Address Unknown Phone Unavailable Care Team Providers Care Road Design Draftsperson Name Role Phone Carla Wilson MD PCP Naima Field MD Unavailable Winnie Jorge MD Unavailable Emiliano Rodriguez STEEL FIXER-BOILER HOUSE OPERATOR 7 Felisa Sneed MD 3 Reason for Visit * Reason Comments Nausea Encounter Details Care Team Description Date Type Department Antolin Erazo [address] [place] [address] Nausea 10/05/[address] [id number] Social History Date Tobacco Use [...] transfusion from Dr. Field, hematology/oncolog y at [facility] in [place], [place]. Last time blood transfusion was last Thursday. Routing to Dr. Covington/Dr. Erazo to advise. documented in this encounter Plan of Treatment Not on filedocumented as of this encounter Visit Diagnoses Not on filedocumented in this encounter
--- OUTSIDE RECORDS SUMMARY | 2020-01-10 20:44 | XMS REPORT | Encounter Summary ---
Author Author [facility] Organization [facility] Address Unknown Phone Unavailable Care Team Providers Care Ceramic Tile Installation Helper Name Role Phone Carla Wilson MD PCP Naima Field MD Unavailable Winnie Jorge MD Unavailable Emiliano Rodriguez PLANNING ASSOCIATE-ORTHOPAEDIC PHYSICIAN ASSISTANT 7 Felisa Sneed MD 3 Reason for Visit * Reason Comments Appointment Encounter Details Care Team Description Date Type Department Rina Ruano MA Appointment 12/08/2019 Telephone [facility] [address] [facility] [place] [id number] Social History Date Tobacco Use Types Packs/Day Years Used Quit: 09/28/1981 Former Smoker Cigarettes 2 10 Smokeless Tobacco: Never Used Drinks/Week oz/Week Comments Alcohol Use Seldom Not Currently Sex Assigned at Date Recorded Not on file Industry Job Start Date Occupation Not on file Not on file Not on file Travel End Travel History Travel Start No recent travel history available. Date Recorded COVID-19 Exposure Response 12/08/2019 11:59 AM CDT In the last month, have you been in contact with No / Unsure someone who was confirmed or suspected to have Coronavirus / COVID-19? documented as of this encounter Functional Status Date of Assessment Functional Status Response 12/08/2019 Does the patient have a hearing impairment: No 12/08/2019 Does the patient have a visual impairment: Yes 12/08/2019 Does the patient have impaired ambulation: Yes 12/08/2019 Does the patient have an activity of daily living No (ADL) impairment: 12/08/2019 Does the patient have an instrumental activity of No daily living (IADL) impairment: Date of Assessment Cognitive Status Response 12/08/2019 Does the patient have a cognitive impairment: No documented as of this encounter Miscellaneous Notes * Telephone Encounter - Oliverio Mcneil LPN - 12/08/2019 4:15 PM CDT Spoke with pt, mario alberto information sent to email. Pt does not have Internet at [facility] but will be at [facility] tomorrow and try to set up [employer] at that time. Pt would be willing to go to local hospital to use Internet for visit wo Dr. Sneed as well. * Telephone Encounter - Rina Ruano MA - 12/08/2019 1:28 PM CDT Called and left detailed VM for patient to call the clinic about setting up for my chart for a tele health visit. documented in this encounter Plan of Treatment Not on filedocumented as of this encounter Visit Diagnoses Not on filedocumented in this encounter
--- OUTSIDE RECORDS SUMMARY | 2020-01-10 20:44 | XMS REPORT | Encounter Summary ---
Author Author [facility] Organization [facility] Address Unknown Phone Unavailable Care Team Providers Care Buckle Stapler Name Role Phone Carla Wilson MD PCP Naima Field MD Unavailable Winnie Jorge MD Unavailable Emiliano Rodriguez GRID MAKER-PATIENT OFFICE REP 7 Felisa Sneed MD 3 Encounter Details Care Team Description Date Type Department Estrella Chauhan LPN 12/07/2019 Telephone [facility] [address] [facility] [place], [place] [id number] Social History Date Tobacco Use Types Packs/Day [...] Telephone Encounter - Clary Martins RN - 12/13/2019 11:34 AM CDT Pt to have telephone OV on 01/01. * Telephone Encounter - Clary Martins RN - 12/13/2019 10:52 AM CDT Message sent to scheduling to offer patient appointment options for OV on 01/01. * Telephone Encounter - Clary Martins RN - 12/12/2019 11:25 AM CDT records received, sent for scan on 12/12/2019 * Telephone Encounter - Oliverio Mcneil LPN - 12/07/2019 3:52 PM CDT Pt returned call, called to assess: Has been to ED twice recently "my ammonia was off" Went to [facility] Patient Status patient is an established patient with [facility] Cardiology. Signs and Symptoms Swelling is better SOA same as usual Stomach bloated Chest pain daily, rated anywhere from 2-8 on pain scale. Lasts 1-2 min Medication Review bumex 1 mg daily- for last month, pt prescribed 2 mg BID Metolazone 5 mg twice weekly Metoprolol 12.5 mg BID No weights from 11/19 to 12/05 Date Weight B/P Pulse 12/06 12/05 208 110/68 122/47- 10 135/55- 12/01 127/60 11/28 11/19 212 * Telephone Encounter - Estrella Chauhan LPN - 12/07/2019 8:20 AM CDT Second message from pt wanting to know what the policy is for visitors. Will pro vide this information when pt calls back. * Telephone Encounter - Estrella Chauhan LPN - 12/07/2019 8:15 AM CDT Message received from pt 12/07/19 at 1612 requesting cb from Clary Martins RN. Pt states she has an appointment with hepatology today and states "I've been ware ving a rough go of it lately". Returned call to pt and LM on VM to cb. documented in this encounter Plan of Treatment Not on filedocumented as of this encounter Visit Diagnoses Not on filedocumented in this encounter
--- OUTSIDE RECORDS SUMMARY | 2020-01-10 20:44 | XMS REPORT | Encounter Summary ---
Author Author [facility] Organization [facility] Address Unknown Phone Unavailable Care Team Providers Care Switcher Name Role Phone Carla Wilson MD PCP Naima Field MD Unavailable Winnie Jorge MD Unavailable Emiliano Rodriguez GUM WORKER-REGULATORY ASSISTANT 7 Felisa Sneed MD 3 Reason for Visit * Reason Comments Other Encounter Details Care Team Description Date Type Department Lynette Diana MD 4000 [facility] [id number] [place] [address] Other 12/19/2019 Telephone The [facility] [address] [address] Social History Date Tobacco Use [...] encounter Miscellaneous Notes * Telephone Encounter - Francesca Murphy CMA - 12/30/2019 9:02 AM CDT Request for US appt has been sent Via [employer]. * Telephone Encounter - Glo Us RN - 12/19/2019 3:29 PM CDT Will forward to [place] for assistance scheduling. documented in this encounter Plan of Treatment Not on filedocumented as of this encounter Visit Diagnoses Not on filedocumented in this encounter
--- OUTSIDE RECORDS SUMMARY | 2020-01-10 20:44 | XMS REPORT | Encounter Summary ---
Author Author [facility] Organization [facility] Address Unknown Phone Unavailable Care Team Providers Care Building Insulation Installer Name Role Phone Carla Wilson MD PCP Naima Field MD Unavailable Winnie Jorge MD Unavailable Emiliano Rodriguez AUTO TECHNICIAN-OFFICE EMPLOYEE 7 Felisa Sneed MD 3 Reason for Visit * Reason Comments Appointment Question Encounter Details Care Team Description Date Type Department Lynette Diana MD 4000 [facility] [id number] [place] [address] Appointment Question 11/08/2019 Telephone The [facility] [address] [address] Social History Date Tobacco Use [...] 10:22 AM CDT Please call pt to [facility] 11/09 clinic appt documented in this encounter Plan of Treatment Not on filedocumented as of this encounter Visit Diagnoses Not on filedocumented in this encounter
--- OUTSIDE RECORDS SUMMARY | 2020-01-10 20:44 | XMS REPORT | Encounter Summary ---
Author Author [facility] Organization [facility] Address Unknown Phone Unavailable Care Team Providers Care Teacher Public Health Name Role Phone Carla Wilson MD PCP Naima Field MD Unavailable Winnie Jorge MD Unavailable Emiliano Rodriguez ANESTHETIST-PRINTED CIRCUIT BOARD REWORKER 7 Felisa Sneed MD 3 Encounter Details Care Team Description Date Type Department 12/08/2019 Travel Social History Date Tobacco Use Types Packs/Day [...]
--- OUTSIDE RECORDS SUMMARY | 2020-01-10 20:44 | XMS REPORT | Encounter Summary ---
Author Author [facility] Organization [facility] Address Unknown Phone Unavailable Care Team Providers Care Maintenance Helper Utility Engineer Name Role Phone Carla Wilson MD PCP Naima Field MD Unavailable Winnie Jorge MD Unavailable Emiliano Rodriguez GRID MAKER-HOOF TRIMMER 7 Felisa Sneed MD 3 Reason for Visit * Reason Comments Other Nurse, Please Call. Encounter Details Care Team Description Date Type Department Lynette Diana MD 4000 [facility] [id number] [place] [address] Other (Nurse, Please Call.) 10/04/2019 Telephone The [facility] [address] [address] Social History Date Tobacco Use [...] chronic nausea. Requested pat mic call her truck sales representative. * Telephone Encounter - Lauryn Crum - 10/04/2019 3:07 PM CDT Vm 3:04pm Please have Dr Diana's nurse call. [phone] documented in this encounter Plan of Treatment Not on filedocumented as of this encounter Visit Diagnoses Not on filedocumented in this encounter
--- OUTSIDE RECORDS SUMMARY | 2020-01-10 20:44 | XMS REPORT | Encounter Summary ---
Author Author [facility] Organization [facility] Address Unknown Phone Unavailable Care Team Providers Care Geographic Information System Analyst Name Role Phone Carla Wilson MD PCP Naima Field MD Unavailable iWnnie Jorge MD Unavailable Emiliano Rodriguez MOPHEAD SEWER-APPLICATIONS PROGRAMMER 7 Felisa Sneed MD 3 Reason for Visit * Reason Comments Medication Refill Encounter Details Care Team Description Date Type Department Felisa Sneed MD 4000 [facility] [id number] [place], [place] [id number] Medication Refill 12/13/2019 Refill The [facility] 4000 [facility] [id number] [place] [address] Social History Date Tobacco Use Types Packs/Day [...]
--- OUTSIDE RECORDS SUMMARY | 2020-01-10 20:44 | XMS REPORT | Encounter Summary ---
Author Author [facility] Organization [facility] Address Unknown Phone Unavailable Care Team Providers Care Finished Cloth Examiner Name Role Phone Carla Wilson MD PCP Naima Field MD Unavailable Winnie Jorge MD Unavailable Emiliano Rodriguez SPACE OPERATIONS OFFICER-MASTER TAX ADVISOR 7 Felisa Sneed MD 3 Reason for Referral * Consult, Test & Treat (Routine) Referred By Contact Referred To Contact Status Reason Specialty Diagnoses / Procedures Felisa Sneed MD [address] [place] [address] New Request Procedures REQUEST FOR CARDIOLOGY APPOINTMENT * Test (Routine) Referred By Contact Referred To Contact Status Reason Specialty Diagnoses / Procedures Felisa Sneed MD [address] [place] [address] New Request Diagnoses Chronic diastolic heart failure (HCC) PAF (paroxysmal atrial fibrillation) (HCC) P rocedures 2D + DOPPLER ECHO Reason for Visit * Reason Comments Follow Up * Consult, Test & Treat (Routine) Referred By Contact Referred To Contact Status Reason Specialty Diagnoses / Procedures Felisa Sneed MD [address] [place] [address] New Request Diagnoses Heart disease P rocedures REQUEST FOR CARDIOLOGY APPOINTMENT Encounter Details Care Team Description Date Type Department Felisa Sneed MD [address] [place] [address] [id number] [place] [address] [phone] Follow Up 01/03/2020 Scheduled The [facility] 4000 [facility] [id number] [place] [address] Social History Date Tobacco Use Types Packs/Day [...] / COVID-19? documented as of this encounter Last Filed Vital Signs Reading Time Taken Comments Vital Sign 98/42 01/02/2020 12:54 PM CDT Blood Pressure 64 01/02/2020 12:54 PM CDT Pulse - - Temperature - - Respiratory Rate 94% 01/02/2020 12:54 PM CDT Oxygen Saturation - - Inhaled Oxygen Concentration 98 kg (216 lb) 01/02/2020 12:54 PM CDT Weight 162.6 cm (5' 4") 01/02/2020 12:54 PM CDT Height 37.08 01/02/2020 12:54 PM CDT Body Mass Index documented in this encounter Functional Status Date of Assessment Functional Status Response 01/02/2020 Does the patient have a hearing impairment: No 01/02/2020 Does the patient have a visual impairment: No 01/02/2020 Does the patient have impaired ambulation: Yes 01/02/2020 Does the patient have an activity of daily living No (ADL) impairment: 01/02/2020 Does the patient have an instrumental activity of No daily living (IADL) impairment: Date of Assessment Cognitive Status Response 01/02/2020 Does the patient have a cognitive impairment: No documented as of this encounter Patient Instructions * Patient Instructions* Felisa Sneed MD - 01/02/2020 1:00 PM CDT 1. Med changes today: Stop metoprolol. OK to resume if blood pressure consiste ntly 130/80 or higher. 2. OK to take higher dose bumex: 3mg BID for three days or until weight goes ilya k to 212 pounds or less, then resume 2mg bid. 3. Please log your weight, blood pressure, and heart rate and bring to all visit s. 4. Labs monthly, local: BNP BMP Mg 5. Schedule a phone call in a week or two; Return to see Dr. Sneed in 1-2 months in person, in afternoon, echocardiogram same day. Please call the office with any questions or concerns [phone] (nurse triage ). To schedule or change an appointment call [phone]. Felisa Sneed MD, PhD Tierney Cisneros, SAMANTHA Martins, [facility] Fax: [phone] documented in this encounter Progress Notes * Felisa Sneed MD - 01/02/2020 1:00 PM CDT Date of Service: 01/02/2020 Obtained patient's verbal consent to treat them and their agreement to [facility] policy and NPP via this telehealth visit during the Coronavirus [facility]. This telephone visit was conducted via communication between the patient and danis sician/provider due to COVID-19. We have found that certain health care needs c an be provided without an in-person visit. This service lets us provide the care patients' need. If a prescription is necessary we can send it directly to their pharmacy. If testing is necessary this can be arranged. Deborah Fields is a 64 y.o. female. HPI Deborah was called for routine follow up. As you recall, she is now 64 years old, and I follow her for diastolic heart failure, but she has complex medical histo ry including stable coronary disease, paroxysmal atrial fib, GAVE/cirrhosis with transfusion-dependent anemia, chronic kidney disease, and several other comorbi dities as listed in her problem as below. She tells me her breathing is okay, b ut her appetite has been off, and she does still require transfusions. She has had progressive decline both in her functional status and her mental status. Sh e states she often is talking funny, her mind is cloudy, and she is unable to pa rticipate as much as she would like in her activities of daily living. She was hospitalized earlier this year for an episode of profound confusion and weakness when she was unable to get off of the toilet. She was evaluated for sepsis, but no infection was found. Today she reports headache and nausea; resolved chest pain. She hasn't had a tr ansfusion for over a month. She still has confusion and was in the hospital aga in for confusion and high ammonia levels. She does get dizzy spels She curre ntly denies exertional chest pain, irregular heartbeat/palpitations, dizzy spell s, syncope/near syncope, edema, orthopnea, and paroxysmal nocturnal dyspnea. Her weight monitored on home scale has been up 5-8 pounds since she saw Dr. Jr Urrutia nd in liver clinic last month. For blood pressure, 120-130/60 is typical but it was lower today, 98/42. She does not feel too dehydrated and was dizzy today on standing. Vitals: 01/02/20 1254 BP: 98/42 BP Source: Arm, Left Upper Pulse: 64 SpO2: 94% Weight: 98 kg (216 lb) Height: 1.626 m (5' 4") PainSc: Zero Body mass index is 37.08 kg/m. Past Medical History Patient Active Problem List Diagnosis Date Noted CKD 09/30/2018 Morbid obesity (HCC) 06/01/2018 Acute on chronic diastolic heart failure due to coronary artery disease (HCC ) 03/31/2018 Chronic diastolic heart failure (HCC) 03/31/2018 Long's esophagus 03/30/2018 Left leg cellulitis 03/29/2018 Pleural effusion on left 03/26/2018 Essential hypertension 02/23/2018 DELROY (acute kidney injury) (HCC) 02/18/2018 CAD (coronary artery disease), [place] coronary artery 02/16/2018 02/16/18: CABG x4 (PRIDE [...] 11/13/2017 Added automatically from request for surgery [id number] Review of Systems Constitution: Negative. HENT: Negative. Eyes: Negative. Cardiovascular: Positive for dyspnea on exertion and leg swelling. Respiratory: Negative. Endocrine: Negative. Hematologic/Lymphatic: Negative. Skin: Negative. Musculoskeletal: Negative. Gastrointestinal: Positive for nausea. Genitourinary: Negative. Neurological: Positive for dizziness, headaches and light-headedness. Psychiatric/Behavioral: Negative. Allergic/Immunologic: Negative. All other systems reviewed and are negative. Physical exam limited d/t video tele health visit: Phone visit, not done Cardiovascular Studies Problems Addressed Today Encounter Diagnoses Name Primary? Chronic diastolic heart failure (HCC) Yes PAF (paroxysmal atrial fibrillation) (HCC) Acute on chronic diastolic heart failure due to coronary artery disease (HCC ) Heart disease, unspecified Heart disease Assessment and Plan From a heart failure standpoint, she has been dizzy and today is hypotensive. I would like her to stop beta-nneka completely for now and check blood pressure routinely. She can resume low-dose beta-nneka if blood pressure is consisten tly 130/80, or higher. We will reassess on next visit and continue her diuretic for the time being. She will tend to need more diuretic when she gets blood tr ansfusions or infusions. She will get an echocardiogram with bubble study on ne xt visit to assess for any shunt from hepatopulmonary disease. We will yanes e continue to follow her labs closely, and they are checked at least monthly loc ally. We will check in with her next week by phone to see what her blood pressu re and weight trend is. From a liver standpoint, she appears to have worsening encephalopathy; she has b een to ER 3 times for confusion and dizziness. Unfortunately, she missed follow -up EGD to assess GAVE due to the COVID-19 pandemic. She will continue to timmy soares with Dr. Diana as well as her local primary care and hematology physicians. I do worry about her overall prognosis given her significant liver, kidney, and heart disease. Her functional status remains poor, and she has previously seen palliative care on prior visit earlier this year. We will continue to monitor h er home situation and chronic disease management. Should escalation of care be needed, I am happy to participate in these conversations. Thank you for allowing me to participate in the care of this patient. Please do not hesitate to contact me should you have any questions or concerns. Felisa Sneed MD, PhD Advanced Heart Failure and Transplant Cardiology Pager [phone] I spent 25 minutes with the patient today including approximately 15 minutes in counseling on her heart disease. We reviewed the above treatment plan, went ove r risks/benefits/alternatives to the therapies, and all questions were answered to her satisfaction. Current Medications (including today's revisions) bumetanide (BUMEX) 1 mg tablet TAKE TWO (2) TABLETS BY MOUTH TWICE DAILY cetirizine (ZYRTEC) 10 mg tablet Take 10 mg by mouth every morning. clobetasol (TEMOVATE) 0.05 % topical cream Apply to affected area twice bree y as needed diphenhydrAMINE (BENADRYL ALLERGY) 25 mg tablet Take 25 mg by mouth every 6 hours as needed for Sleep. folic acid (FOLVITE) 1 mg tablet Take 1 mg by mouth daily. rhrmbfaz-aidyultwv-L-manganese 500-400-2-0.33 mg cap Take 500 mg by [...] (1) TAB LET BY MOUTH TWICE DAILY metOLazone (ZAROXOLYN) 5 mg tablet Take one tablet by mouth twice weekly. 1 hour before morning [...] hours as needed for Nausea or Vomiting. rifAXIMin (XIFAXAN) 550 mg tablet Take 550 mg by mouth every 12 hours. tiZANidine (ZANAFLEX) 4 mg tablet Take 4 mg by mouth at bedtime daily. traMADol (ULTRAM) 50 mg tablet Take one tablet by mouth every 6 hours as nee ded for Pain. documented in this encounter Plan of Treatment Order Schedule Name Type Priority Associated Diag noses Every 4 Weeks Auto for [address] ar[address] 01/02/2020 until 01/01/2021 BASIC METABOLIC PANEL Lab Routine Chronic diastolic heart failure (HCC) PAF (paroxysmal atrial fibrillation) ([facility]) Every 4 Weeks Auto for [address] 01/02/2020 until 01/01/2021 BNP (B-TYPE NATRIURETIC Lab Routine Heart disease, PEPTI) unspecified Chronic diastolic heart failure (HCC) PAF (paroxysmal atrial fibrillation) ([facility]) Every 4 Weeks Auto for [address] 01/02/2020 until 01/01/2021 MAGNESIUM Lab Routine Chronic diastol ic heart failure (HCC) PAF (paroxysmal atrial fibrillation) ([facility]) Expected: 02/02/2020 (Approximate), Expi res: 01/01/2021 2D + DOPPLER ECHO ECHO Routine Chronic villarreal tolic heart failure (HCC) PAF (paroxysmal atrial fibrillation) (HCC) documented as of this encounter Visit Diagnoses Diagnosis Chronic diastolic heart failure (HCC) Chronic diastolic heart failure PAF (paroxysmal atrial fibrillation) (H CC) Atrial fibrillation Acute on chronic diastolic heart failur e due to coronary artery disease (HCC) Heart disease, unspecified Heart disease, unspecified Heart disease Heart disease, unspecified documented in this encounter
--- OUTSIDE RECORDS SUMMARY | 2020-01-10 20:44 | XMS REPORT | Encounter Summary ---
Author Author [facility] Organization [facility] Address Unknown Phone Unavailable Care Team Providers Care Line Locator Name Role Phone Carla Wilson MD PCP Naima Field MD Unavailable Winnie Jorge MD Unavailable Emiliano Rodriguez BRAND INSPECTOR-ASTROPHYSICS TEACHER 7 Felisa Sneed MD 3 Reason for Referral * Consult, Test & Treat (Routine) Referred By Contact Referred To Contact Status Reason Specialty Diagnoses / Procedures Lynette Diana MD [address] [place] [address] [id number] [phone] New Request Specialty Services Diagnoses Required Cirrhosis of liver without ascites, unspecified hepatic cirrhosis type (HCC) Reason for Visit * Reason Comments Cirrhosis Encounter Details Care Team Description Date Type Department Lynette Diana MD [address] [place] [id number] Cirrhosis of liver without ascites, unsp ecified hepatic cirrhosis type (HCC) (Primary Dx); Morbid obesity (HCC); Acute on chronic diastolic heart failure due to coronary artery disease (HCC); Hepatic encephalopathy (HCC); Stage 3 chronic kidney disease (HCC); Chronic anemia 12/08/2019 Office Visit The [address] [phone] Social History Date Tobacco Use Types Packs/Day [...] Signs Reading Time Taken Comments Vital Sign 139/62 12/08/2019 11:53 AM CDT Blood Pressure 72 12/08/2019 11:53 AM CDT Pulse 36.8 C (98.2 F) 12/08/2019 11:53 AM CDT Temperature 16 12/08/2019 11:53 AM CDT Respiratory Rate 93% 12/08/2019 11:53 AM CDT Oxygen Saturation - - Inhaled Oxygen Concentration 95.8 kg (211 lb 3.2 oz) 12/08/2019 11:53 AM CDT Weight 162.6 cm (5' 4") 12/08/2019 11:53 AM CDT Height 36.25 12/08/2019 11:53 AM CDT Body Mass Index documented in [...] encounter Patient Instructions * Patient Instructions* Glo Us RN - 12/08/2019 12:40 PM CDT Schedule: 1. Schedule 6 month follow up, gen hep- in clinic, Dr. Diana. Patient Information: 1. You are due for an EGD- we will assist you in getting this scheduled at [facility] 2. Please call if you have any yellowing of the eyes or skin, swelling of the a bdomen, vomiting blood, dark tarry stools, or unusual confusion. These are sign s of liver disease progressing. 3. We will assist you in scheduling an abdominal ultrasound at [facility] 4. Please request your labs be faxed to [phone]. Back office: Schedule abdominal ultrasound and EGD at [facility]. General Instructions: How to reach us: Please send a [employer] message to the General Hepatology cl in or call [phone], option 2. How to get a medication refill: Please use the [employer] Refill request or con tact your pharmacy directly to request medication refills. Please allow 48 hours . This clinic does not prescribe pain medications. If you have had labs or imaging outside the [facility] system and have not received r esults, call us and let us know where they were completed. Appointment Reminders on your cell phone: Make sure we have your cell phone n lauraer, and Text [employer] to [phone] Thank you for allowing us to participate in your care. If you have any concerns , call , option 2. Your liver team is Lilo Medina APRN, Kimberly MSN, RN and Torri MCKEON. documented in this encounter Progress Notes * Lynette Diana MD - 12/08/2019 12:40 PM CDT Date of Service: 12/08/2019 Subjective: Deborah Fields is a 64 y.o. female presenting for follow up of fairly compensate d cryptogenic cirrhosis, in the setting of multiple co morbidities. Patient is accompanied by her . Since we last saw Mrs. Fields, she has, unfortunately been seen in her local ER twice for confusion ("loopy"). She reports having a high ammonia level. She note s that her lactulose made her have diarrhea and high blood sugar. She took it in termittently. She stopped lactulose yesterday, and has been taking Xifaxan as of yesterday prescribed by the ER. She was not admitted, as "they couldn't find an ything wrong". She does note that her Hb dropped from 9.6 to 8.2. She routinely gets transfused (now reports total of 104 units), has Fe infusion now weekly, an d is on Aranesp. She has not had overt bleeding. She missed her f/u EGD to asses s GAVE during the pandemic. She further denies jaundice, or pruritus. Last colon 08/2018 performed by me for follow up of poor prep with <1cm polyp x 4 (2 x TA, 2 not retrieved, thus presume TA x 4). History of Present Illness Deborah Fields is a 63 y.o. female with past medical history of morbid obesity B CT = 43; HTN; HLP; IDDM2; CAD with prior PCI and s/p 4vCABG 02/2018; HFrEF 2/2 is chemic CM EF 50; a fib s/p MAZE, off AC; and chronic blood loss anemias/p EGD/ colon/VCE x 2, whom I initially met in consultation 06/2018 for evaluation of asc ites. Please see initial consult note for further details. It was felt that the majority of her symptoms were driven by HF, although she is presumed cirrhotic. Niece who is a nurse requested repeat EGD for assessment/tr eatment of GAVE. Review of Systems A complete 10 point ROS was otherwise negative except as per HPI. Past medical/surgical/family/social history and allergies reviewed and unchanged unless noted above. Objective: bumetanide (BUMEX) 1 mg tablet Take two [...] tablet Take 1 mg by mouth daily. owrudior-maxzwcfpk-P-manganese 500-400-2-0.33 mg cap Take 500 mg by [...] hours as nee ded for Pain. Vitals: 12/08/19 1153 BP: 139/62 BP Source: Arm, Left Upper Patient Position: Sitting Pulse: 72 Resp: 16 Temp: 36.8 C (98.2 F) TempSrc: Oral SpO2: 93% Weight: 95.8 kg (211 lb 3.2 oz) Height: 162.6 cm (64") PainSc: Eight Body mass index is 36.25 kg/m. Physical Exam Vitals reviewed. Constitutional: Well-developed, well-nourished, in no apparent distress, wheelch air in room. HEENT: Normocephalic.Noscleral icterus.Moist oral mucosa. Dentitionfair CV: RRR Resp: non labored Neck/Lymph: Normal ROM,supple. No thyromegaly. No lymphadenopathy GI: Abdomen obese,soft, non-distended, non-tender. BS present.possiblesh ifting dullness vs body wall edema.Exam compromised by body habitus Skin: Skin is warmand dry.No rash noted.No jaundice.+spider nevi noted. Nopalmar erythema Peripheral Vascular:1+lower extremity edema, improved. 2+ pulses in all extr emities Musculoskeletal: ROM intact,borderlinemuscle bulk Psychiatric: Normal mood and affect. Behavior is normal. Neuro:Noasterixis,notremor Lab and Imaging Data: Reviewed from OSH ER And reviewed OSH 11/20 Assessment and Plan: Cryptogenic cirrhosis:She is presumed cirrhotic, based on history, exam, lab oratory, and imaging findings including endoscopy. She has had a negative serolo gic work up for other liver disease. Cirrhosis would be presumed 2/2 TANG with R F +/- cardiac. Historically, her symptoms have been related to her HF, as well a s her volume overload, but now with HE, with recent repeated ER visits. Her live r function remains preserved with MELD driven by DELROY. - Biopsy is still deferred. Liver Transplant Candidacy:deferred 2/2 low MELD. Should her MELD become compe titive and/or she develop transplant-defining conditions, however, she would cur rently not be an OLT candidate d/t co morbidities, including heart disease, morb id obesity (BMI now improved), and very limited functionally. This was again dis cussed with patient and her family. Hepatocellular Cancer Screening:negative MR 02/2019. - Doppler US due now. - Recommend hepatoma screening q6-12 months with either abdominal ultrasound or contrasted, cross-sectional imaging. Volume overload:likely never with appreciable ascites (trace on our imaging; no roma), but with history of pleural effusions, additionally related to HF (as with her other symptoms). - Diuretics managed by heart failure. - We have discussed echo bubble study to evaluate for hepatopulmonary component, if her hypoxia would persist in the absence of pleural effusions and euvolemic/ HF stable (she has several reasons to be SOB). Hepatic Encephalopathy:uncontrolled, seems noncompliant with lactulose, now on Xifaxan monotherapy (SE from lactulose). - continue Miralax for constipation. - Continue Xifaxan. - Recommend strict avoidance of medications such as narcotics, sedatives and sle ep aids. Low dose Benadryl PRN or melatonin can be used for insomnia, if needed. - we discussed precipitants of HE, including infection, bleeding, DELROY, etc. Esophageal Varices:small varices EGD 08/2018. - Recommend repeating an upper GI endoscopyyearly.She is on selective BB for her heart disease. Chronic blood loss anemia: 2/2 PHG, GAVE, hemorrhoids, etc. She has not had any significant bleeding nor admissions for acute on chronic anemia since she has be en under our care, although she continues with frequent transfusions, Fe infusio ns, and now Aranesp. Last EGD with mild PHG and GAVE, not necessitating treatmen t. - Goal Hb >8 given heart disease. - Would not pursue aggressive diagnostics in her; however, may reassess need for treatment of GAVE. Kidney Health:multiple episodes of A on CKD suspected 2/2 cardiorenal. - All patients with liver disease should avoid the use of Non-steroidal Anti-Inf lammatory (NSAID) medications as they can cause significant injury to the kidney s in this population. Immobility/Frailty:she remains frail and sedentary. Nutrition: As with most patients with chronic liver disease, there is a degree of protein m alnutrition.She is at the same time obese.Dicussed need to change dietary ware bits to improve overall protein balance. Discussed the importance of eating be tween 1.2-1.5g/kg/day lean protein such as plant-based proteins (soy, legumes, n uts), dairy-based proteins (cheese, milk, yogurt), white meat chicken or pork, f jazmín, and eggs. Continue to follow a sodium restricted (<2g sodium diet), heart- healthy, Mediterranean style diet. It is best to [...] Care in Patient with Chronic Liver Disease: -Hep A immune. She is noted to have prior exposure to HBV (+cAb) with high tit er Ab. If she should ever be placed on IS or chemotherapy, including highest ris k B cell depleting agents, she should be placed on antiviral prophylaxis. - All patients with liver disease are at an increased risk for osteoporosis. W e strongly recommend screening for Vitamin D deficiency with aggressive suppleme ntation/replacement, as indicated. Screening for all fat soluble vitamin deficie ncies should be performed in those patients with cholestatic liver disease. - Baseline DEXA scan should be performed to evaluate for decreased bone mineral density. If present, Ca/Vit D +/- bisphosphonate therapy should be considered.Fo llow up DEXA scans shall be based on prior scans as well as therapies. It is not uncommon for our patients to be referred to an Associate Software Engineer/bone health spec ialist. - The preferred analgesic in cirrhosis and liver disease is Tylenol, up to 2g da masood. - Recommend age appropriate vaccination including yearly influenza and Pneumovax prior to OLT in cirrhotic patients. Follow Up: 6 mos (TH) Labs today:none Imaging/biopsy:Doppler US now Thank you very much for the opportunity to participate in the care of this patie nt. If you have any further questions, please don't hesitate to contact our of asya. Lynette Diana MD [employer] Manufacturing Supervisorcustomer support consultant Advanced Hepatology [facility] Liver Transplantation [facility] documented in this encounter Plan of Treatment Order Schedule Name Type Priority Associated Diag noses Expected: 12/08/2019 (Approximate), Expi res: 12/07/2020 US ABDOMEN COMPLETE Imaging Routine Cirrhosis of liver without ascites, unspecified hepatic cirrhosis type (HCC) Order Schedule Name Type Priority Associated Diag noses Ordered: 12/08/2019 AMB REFERRAL TO GI LAB Outpatient Routine Cirrhos is of liver FOR PROCEDURE Referral without ascites, unspecified hepatic cirrhosis type (HCC) documented as of this encounter Visit Diagnoses Diagnosis Cirrhosis of liver without ascites, uns pecified hepatic cirrhosis type (HCC) Morbid obesity (HCC) Morbid obesity Acute on chronic diastolic heart failur e due to coronary artery disease (HCC) Hepatic encephalopathy (HCC) Hepatic encephalopathy Stage 3 chronic kidney disease (HCC) Chronic anemia Anemia, unspecified documented in this encounter
--- OUTSIDE RECORDS SUMMARY | 2020-01-10 20:45 | XMS REPORT | Encounter Summary ---
Author Author [facility] Organization [facility] Address Unknown Phone Unavailable Care Team Providers Care Cra Officer Name Role Phone Carla Wilson MD PCP Naima Field MD Unavailable Winnie Jorge MD Unavailable Emiliano Rodriguez NIPPING MACHINE OPERATOR-MEDIA CONSULTANT 7 Felisa Sneed MD 3 Encounter Details Care Team Description Date Type Department Rina Ruano MA 07/28/2019 Documentation The [facility] [id number] [place] [address] Social History Date Tobacco Use Types Packs/Day [...] * PROTIME INR (PT) (07/28/2019) Pathologist [facility] INR 1.1 0.8 - 1.4 OTHER OUTSIDE LAB Protime 14.2 OTHER OUTSIDE LAB Specimen Blood - Blood Performing Organization Address City/[facility] one Number OTHER OUTSIDE LAB * CBC AND DIFF (07/28/2019) Pathologist [facility] White Blood 3.4 (L) 4.3 - 11.0 [...] n ot available. Performing Organization Address City/[facility] Ph one Number OTHER OUTSIDE LAB * COMPREHENSIVE METABOLIC PANEL (07/28/2019) Pathologist [facility] Sodium 138 OTHER OUTSIDE LAB Potassium 4.3 [...] LAB eGFR Non 29 OTHER OUTSIDE LAB German eGFR OTHER OUTSIDE German LAB Anion Gap 5 OTHER OUTSIDE LAB BUN/Creatinine 14 OTHER OUTSIDE Ratio LAB Specimen Blood - Blood Performing Organization Address [facility] one Number OTHER OUTSIDE LAB documented in this encounter Visit Diagnoses Not on filedocumented in this encounter
--- OUTSIDE RECORDS SUMMARY | 2020-01-10 20:45 | XMS REPORT | Encounter Summary ---
Author Author [facility] Organization [facility] Address Unknown Phone Unavailable Care Team Providers Care Underwriting Intern Name Role Phone Carla Wilson MD PCP Naima Field MD Unavailable Winnie Jorge MD Unavailable Emiliano Rodriguez FLIGHT OPERATIONS MANAGER-FRUIT I FARMWORKER 7 Felisa Sneed MD 3 Reason for Visit * Reason Comments Labs Only Encounter Details Care Team Description Date Type Department Rina Ruano MA Labs Only 09/27/2019 Documentation The [facility] [address] [facility] [place] [address] Social History Date Tobacco Use Types Packs/Day [...] Specimen Blood - Blood Performing Organization Address [facility] Ph one Number [facility] [address] [phone] * BNP (B-TYPE NATRIURETIC PEPTI) (09/26/2019) B Type 376.1 (H) <100.0 [facility] Natriuretic Peptide BNP NT pro [facility] Specimen Blood - Blood Performing Organization Address [facility] Ph one Number MAIN LAB [address] [place] [address] * BASIC METABOLIC PANEL (09/26/2019) Pathologist [facility] Sodium 141 [facility] Potassium [...] [facility] eGFR [facility] [place] Anion Gap 9 [facility] BUN/Creatinine 19 [facility] Ratio Specimen Blood - Blood Performing Organization Address City/[facility] one Number [facility] [address] [place] [address] * MAGNESIUM (09/26/2019) Magnesium 2.6 (H) 1.6 - 2.4 [facility] Specimen Blood - Blood Narrative Performed At This result has an attachment that is n ot available. Performing Organization Address City/[facility] Ph one Number MAIN LAB [address] [place] [address] documented in this encounter Visit Diagnoses Diagnosis Chronic diastolic heart failure (HCC) Chronic diastolic heart failure PAF (paroxysmal atrial fibrillation) (H CC) Atrial fibrillation Heart disease Heart disease, unspecified documented in this encounter
--- OUTSIDE RECORDS SUMMARY | 2020-01-10 20:45 | XMS REPORT | Encounter Summary ---
Author Author [facility] Organization [facility] Address Unknown Phone Unavailable Care Team Providers Care Service Department Manager Name Role Phone Carla Wilson MD PCP Naima Field MD Unavailable Winnie Jorge MD Unavailable Emiliano Rodriguez DESK ASSISTANT-BOILER INSPECTOR 7 Felisa Sneed MD 3 Reason for Visit * Reason Comments Lab Results Encounter Details Care Team Description Date Type Department Tracie Stuart, stapler machine Results 09/27/2019 Telephone The [facility] [address] [address] Social History Date Tobacco Use Types Packs/Day [...] states she would prefer to go to [facility] in [place], [place] as this is where she goes [...]
--- OUTSIDE RECORDS SUMMARY | 2020-01-10 20:52 | XMS REPORT | Continuity of Care Document ---
Author Organization Unknown Address Unknown Phone Unavailable Allergies Active Description Code Type Severity Reaction Onset Reported/Identified Relationship to Patient Clinical Status Yes methotrexate [id number] Drug Allergy Unknown N/A 03/24/2014 Yes cefadroxil [id number] Drug Allerg y Mild N/A 01/01/2017 Yes diltiazem [id number] Drug Allergy Unknown mouth burning a 02/23/2017 Yes Awclkav-Sze-Ocq Reductase Inhibitor [id number] Drug Allergy Moderate GI UPSET, N/V 11/06/2017 Yes Sulfa (Sulfonamide Antibiotics) [id number] Drug Allergy Unknown N/A 019 Yes oxycodone [id number] Drug Allergy Unknown N/A 12/21/2019 Medications There is no data. 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 SHIREEN AGARWAL Ot I48.91 UNSPECIFIED ATRIAL FIBRILLATION SHIREEN AGARWAL Ot N18.3 CHRONIC KIDNEY DISEASE, STAGE 3 (MODERAT SHIREEN AGARWAL Ot Z79.899 OTHER HOSPITAL SECURITY OFFICER (CURRENT) DRUG THERAPY 05/14/1018 BRANDEN HAIDER MD, Ot D50.9 IRON DEFICIENCY ANEMIA, UNSPECIFIED 05/14/1018 BRANDEN HAIDER MD, Ot E03.9 HYPOTHYROIDISM, UNSPECIFIED 05/14/1018 BRANDEN HAIDER MD, Ot 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 05/14/1018 BRANDEN HAIDER MD Ot I12.9 HYPERTENSIVE CHRONIC KIDNEY DISEASE W ST 05/14/1018 BRANDEN HAIDER MD Ot 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 05/14/1018 BRANDEN HAIDER MD Ot I48.91 UNSPECIFIED ATRIAL FIBRILLATION 05/14/1018 BRANDEN HAIDER MD Ot N18.3 CHRONIC KIDNEY DISEASE, STAGE 3 (MODERAT 05/14/1018 BRANDEN HAIDER MD, Ot Z79.899 OTHER HALFWAY (CURRENT) DRUG THERAPY 05/14/1557 SHIREEN AGARWAL Ot D50.0 IRON DEFICIENCY ANEMIA SECONDARY TO BLOO 05/14/1557 SHIREEN AGARWAL N Ot E03.9 HYPOTHYROIDISM, UNSPECIFIED 05/14/1557 SHIREEN AGARWAL N Ot 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 05/14/1557 SHIREEN AGARWAL Ot E53.8 DEFICIENCY OF OTHER SPECIFIED B GROUP 05/14/1557 SHIREEN AGARWAL Ot I12.9 HYPERTENSIVE CHRONIC KIDNEY DISEASE W ST 05/14/1557 SHIREEN AGARWAL Ot 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 05/14/1557 SHIREEN AGARWAL Ot I48.91 UNSPECIFIED ATRIAL FIBRILLATION 05/14/1557 SHIREEN AGARWAL Ot K31.819 ANGIODYSPLASIA OF STOMACH AND DUODENUM W 05/14/1557 SHIREEN AGARWAL N Ot K74.60 UNSPECIFIED CIRRHOSIS OF LIVER 05/14/1557 SHIREEN AGARWAL N Ot N18.3 CHRONIC KIDNEY DISEASE, STAGE 3 (MODERAT 05/14/1557 SHIREEN AGARWAL Ot Z79.899 OTHER HOSPITAL SECURITY OFFICER (CURRENT) DRUG THERAPY 05/22/2010 Ot 250.00 AWA B NALLELY WO COMPL, TYPE II OR UNSPEC TY 05/22/2010 Ot 272.4 HYPE RLIPIDEMIA NEC/NOS 05/22/2010 Ot 401.9 HYPE RTENSION NOS 05/22/2010 Ot 414.01 COR ONARY ATHEROSCLEROSIS OF FALSE PASS CORON 05/22/2010 Ot 427.31 ATR IAL FIBRILLATION 03/02/2014 LINDA KHOURY FACFernanda, ARNIE FACP CCDS Ot 244.9 HYPOTHYROIDISM NOS 03/02/2014 LINDA KHOURY FACFernanda, ARNIE FACP CCDS Ot 250.00 DIAB NALLELY WO COMPL, TYPE II OR UNSPEC TY 03/02/2014 LINDA KHOURY FACC, ALI FACP CCDS Ot 272.4 HYPERLIPIDEMIA NEC/NOS 03/02/2014 LINDA KHOURY FACC, ALI FACP CCDS Ot 285.9 ANEMIA NOS 03/02/2014 LINDA KHOURY FACC, ALI FACP CCDS Ot 401.9 HYPERTENSION NOS 03/02/2014 LINDA KHOURY FACC, ALI FACP CCDS Ot 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 05/16/2014 ANY, BOBAN N Ot 585.3 CHRONIC KIDNEY DISEASE, STAGE III (MODER 05/25/2014 ANY BOBAN N Ot 244.9 05/25/2014 ANY BOBAN N Ot 285.9 05/25/2014 ANY BOBAN N Ot 414.01 05/25/2014 ANY BOBAN N Ot 585.3 05/31/2014 ANY BOBAN N Ot 244.9 05/31/2014 ANY BOBAN N Ot 285.9 05/31/2014 ANY, BOBAN [...] 07/28/2014 ANY, BOBAN N Ot 414.01 07/28/2014 NAY, BOBAN N Ot 585.3 08/30/2014 ANY, BOBAN N Ot 244.9 HYPOTHYROIDISM NOS 08/30/2014 ANY, BOBAN N Ot 285.9 ANEMIA NOS 08/30/2014 ANY, BOBAN N Ot 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 08/30/2014 ANY, BOBAN N Ot 585.3 CHRONIC KIDNEY DISEASE, STAGE III (MODER 09/12/2014 Ot 244.9 09/12/2014 Ot 280.9 09/12/2014 Ot 585.3 09/12/2014 Ot V58.69 09/12/2014 Ot 250.02 09/28/2014 ANY, BOBAN N Ot 244.9 09/28/2014 ANY, BOBAN N Ot 285.9 09/28/2014 ANY, JJAN N Ot 414.01 09/28/2014 ANY, JJAN N Ot 585.3 09/28/2014 ANY, BOBAN N Ot 244.9 09/28/2014 ANY, BOBAN N Ot 285.9 09/28/2014 ANY, JJAN N Ot 414.01 09/28/2014 ANY, JJAN N Ot 585.3 09/29/2014 ANY, BOBAN N Ot 244.9 09/29/2014 ANY, BOBAN N Ot 285.9 09/29/2014 ANY, JJAN N Ot 414.01 09/29/2014 ANY, SHIREEN N Ot 585.3 10/05/2014 Ot 401.9 10/05/2014 Ot 272.4 10/05/2014 Ot 250.00 10/05/2014 CHICHI RIVAS PHARMACY INNOVATION ASSISTANT Ot 574.20 10/05/2014 CHICHI RIVAS PHARMACY INNOVATION ASSISTANT Ot 789.1 10/05/2014 LINDA KHOURY FACC, ALI [...] ANY, SHIREEN N Ot 285.9 10/05/2014 ANY, JJAN N Ot 414.01 10/05/2014 ANY, JJAN N Ot 585.3 10/05/2014 Ot 401.9 10/05/2014 Ot 272.4 10/05/2014 Ot 250.00 10/05/2014 CHICHI RIVAS PHARMACY INNOVATION ASSISTANT Ot 574.20 10/05/2014 CHICHI RIVAS PHARMACY INNOVATION ASSISTANT Ot 789.1 10/05/2014 LINDA KHOURY FACC, ALI [...] BOBAN N Ot 585.3 11/27/2014 HARVEY KHOURY, CLAUDE S Ot 585.2 12/27/2014 ANY, BOBAN N Ot 244.9 HYPOTHYROIDISM NOS 12/27/2014 ANY, BOBAN N Ot 285.9 ANEMIA NOS 12/27/2014 ANY, BOBAN N Ot 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 12/27/2014 ANY, BOBAN N Ot 585.3 [...] ANY, BOBAN N Ot 585.3 03/21/2015 OVI KOHURY, TORI-FRANKIE Ot E03.9 03/21/2015 OVI KHOURY, TORI-FRANKIE [...] KHOURY, TORI-FRANKIE Ot E11.9 04/13/2015 OVI KHOURY, WU Ot E78.5 04/13/2015 OVI KHOURY, WU Ot I10 04/27/2015 ANY SHIREEN N Ot D64.9 04/27/2015 ANY, SHIREEN N Ot E03.9 04/27/2015 ANY, SHIREEN N Ot E11.9 04/27/2015 ANY, SHIREEN N Ot I12.9 04/27/2015 ANY, SHIREEN N Ot I25.10 04/27/2015 ANYSHIREEN N Ot I48.91 04/27/2015 ANY, SHIREEN N Ot N18.3 04/27/2015 ANY, SHIREEN N Ot Z79.899 06/13/2015 ANYSHIREEN N Ot 244.9 HYPOTHYROIDISM NOS 06/13/2015 ANY, JJBLU N Ot 250.00 DIAB NALLELY WO COMPL, TYPE II OR UNSPEC TY 06/13/2015 ANYJJAN N Ot 285.9 ANEMIA NOS 06/13/2015 ANYSHIREEN N Ot 427.31 ATRIAL FIBRILLATION 06/13/2015 ANYJJBLU N Ot 585.3 CHRONIC KIDNEY DISEASE, STAGE III (MODER 06/13/2015 ANY JJAN N Ot D64.9 ANEMIA, UNSPECIFIED 06/13/2015 ANYJJBLU N Ot E03.9 HYPOTHYROIDISM, UNSPECIFIED 06/13/2015 ANY, BOBAN N Ot E11.9 TYPE 2 DIABETES MELLITUS WITHOUT COMPLIC 06/13/2015 ANY SHIREEN N Ot I12.9 HYPERTENSIVE CHRONIC KIDNEY DISEASE W ST 06/13/2015 ANYJJBLU N Ot 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 06/13/2015 ANY SHIREEN N Ot I48.91 UNSPECIFIED ATRIAL FIBRILLATION 06/13/2015 ANY, JJAN N Ot N18.3 CHRONIC KIDNEY DISEASE, STAGE 3 (MODERAT 06/13/2015 ANY SHIREEN N Ot V58.69 OTH MED,LT,CURRENT USE 06/13/2015 ANYJJ BALDWINAN N Ot Z79.899 OTHER HOSPITAL SECURITY OFFICER (CURRENT) DRUG THERAPY 09/27/2015 ANYJJAN N Ot D64.9 09/27/2015 ANYJJAN N Ot E03.9 09/27/2015 ANY, BOBAN N Ot E11.9 09/27/2015 SHIREEN AGARWAL N Ot I12.9 09/27/2015 SHIREEN AGARWAL N Ot I25.10 09/27/2015 SHIREEN AGARWAL N Ot I48.91 09/27/2015 SHIREEN AGARWAL N Ot N18.3 09/27/2015 SHIREEN AGARWAL N Ot Z79.899 09/27/2015 Ot 401.9 09/27/2015 Ot 272.4 09/27/2015 Ot 250.00 09/27/2015 CHICHI RIVAS PHARMACY INNOVATION ASSISTANT Ot 574.20 09/27/2015 CHICHI RIVAS PHARMACY INNOVATION ASSISTANT Ot 789.1 09/27/2015 LINDA KHOURY FACC, ALI [...] 09/27/2015 Ot 250.02 09/27/2015 HARVEY KHOURY, CLAUDE Clement Ot 574.20 09/27/2015 HARVEY KHOURY, CLAUDE S Ot 585.2 09/27/2015 OVI KHOURY, TORI-FRANKIE Ot E03.9 09/27/2015 OVI KHOURY, TORI-FRANKIE Ot E11.6 5 09/27/2015 OVI KHOURY, TORI-FRANKIE Ot E78.5 09/27/2015 OVI KHOURY, TORI-FRANKIE Ot I10 09/27/2015 OVI KHOURY, TORI-FRANKIE Ot E03.9 09/27/2015 OVI KHOURY, TORI-FRANKIE Ot E11.9 09/27/2015 OVI KHOURY, FLORIDALMAU Ot E78.5 09/27/2015 OVI KHOURY, TORI-FRANKIE Ot I10 09/27/2015 ANY, JJAN N Ot D64.9 09/27/2015 ANY, BOBAN N [...] N Ot 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 10/09/2015 ANY, BOBAN N Ot I48.91 UNSPECIFIED ATRIAL FIBRILLATION 10/09/2015 ANY, BOBAN N Ot N18.3 CHRONIC KIDNEY DISEASE, STAGE 3 (MODERAT 10/09/2015 ANY, BOBAN N Ot Z79.899 OTHER HOSPITAL SECURITY OFFICER (CURRENT) DRUG THERAPY 10/17/2015 ANY, BOBAN N Ot D64.9 ANEMIA, UNSPECIFIED 10/17/2015 ANY, BOBAN N Ot E03.9 HYPOTHYROIDISM, UNSPECIFIED 10/17/2015 ANY, BOBAN N Ot 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 10/17/2015 ANY, BOBAN N Ot I12.9 HYPERTENSIVE CHRONIC KIDNEY DISEASE W ST 10/17/2015 ANY, BOBAN N Ot 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 10/17/2015 ANY, BOBAN N Ot I48.91 UNSPECIFIED ATRIAL FIBRILLATION 10/17/2015 ANY, BOBAN N Ot N18.3 CHRONIC KIDNEY DISEASE, STAGE 3 (MODERAT 10/17/2015 ANY, BOBAN N Ot Z79.899 OTHER HALFWAY (CURRENT) DRUG THERAPY 10/19/2015 SHIREEN AGARWAL N Ot D64.9 ANEMIA, UNSPECIFIED 10/19/2015 SHIREEN AGARWAL N Ot E03.9 HYPOTHYROIDISM, UNSPECIFIED 10/19/2015 SHIREEN AGARWAL N Ot 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 10/19/2015 ANYSHIREEN BALDWIN N Ot I12.9 HYPERTENSIVE CHRONIC KIDNEY DISEASE W ST 10/19/2015 SHIREEN AGARWAL N Ot 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 10/19/2015 SHIREEN AGARWAL N Ot I48.91 UNSPECIFIED ATRIAL FIBRILLATION 10/19/2015 SHIREEN AGARWAL N Ot N18.3 CHRONIC KIDNEY DISEASE, STAGE 3 (MODERAT 10/19/2015 SHIREEN AGARWAL N Ot Z79.899 OTHER HALFWAY (CURRENT) DRUG THERAPY 11/16/2015 SHIREEN AGARWAL N Ot D50.9 IRON DEFICIENCY ANEMIA, UNSPECIFIED 11/16/2015 SHIREEN AGARWAL N Ot Z79.899 OTHER HOSPITAL SECURITY OFFICER (CURRENT) DRUG THERAPY 12/03/2015 SHIREEN AGARWAL N Ot D50.9 IRON DEFICIENCY ANEMIA, UNSPECIFIED 12/03/2015 ANYSHIREEN BALDWIN N Ot Z79.899 OTHER HOSPITAL SECURITY OFFICER (CURRENT) DRUG THERAPY 01/03/2016 Ot 272.4 HYPE RLIPIDEMIA NEC/NOS 01/03/2016 Ot 250.00 AWA B NALLELY WO COMPL, TYPE II OR UNSPEC TY 01/03/2016 CHICHI RIVAS PHARMACY INNOVATION ASSISTANT Ot 574.20 CHOLELITHIASIS NOS 01/03/2016 CHICHI RIVAS PHARMACY INNOVATION ASSISTANT Ot 789.1 HEPATOMEGALY 01/03/2016 LINDA KHOURY FACC, [...] OR UNSPEC TY 01/03/2016 LINDA KHOURY FACC, ARNIE [facility] CCDS Ot 401.9 HYPERTENSION NOS 01/03/2016 LINDA KHOURY [facility], ARNIE [facility] CCDS Ot 427.0 PAROX ATRIAL TACHYCARDIA 01/03/2016 LINDA KHOURY [facility], ARNIE [facility] CCDS Ot 785.1 PALPITATIONS 01/03/2016 Ot 244.9 HYPO THYROIDISM NOS 01/03/2016 Ot 280.9 IRON DEFIC ANEMIA NOS 01/03/2016 Ot 585.3 RELIGIOUS HEALER LEANDRO KIDNEY DISEASE, STAGE III (MODER 01/03/2016 [...] 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 01/03/2016 SHIREEN AGARWAL Ot I12.9 HYPERTENSIVE CHRONIC KIDNEY DISEASE W ST 01/03/2016 SHIREEN AGARWAL Ot 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 01/03/2016 ANY, BOBAN N Ot I48.91 UNSPECIFIED ATRIAL FIBRILLATION 01/03/2016 SHIREEN AGARWAL N Ot N18.3 CHRONIC KIDNEY DISEASE, STAGE 3 (MODERAT 01/03/2016 SHIREEN AGARWAL N Ot Z79.899 OTHER HOSPITAL SECURITY OFFICER (CURRENT) DRUG THERAPY 01/03/2016 SHIREEN AGARWAL N Ot D50.9 IRON DEFICIENCY ANEMIA, UNSPECIFIED 01/03/2016 SHIREEN AGARWAL N Ot Z79.899 OTHER HALFWAY (CURRENT) DRUG THERAPY 01/03/2016 SHIREEN AGARWAL N Ot D64.9 ANEMIA, UNSPECIFIED 01/03/2016 ANY, BOBAN N Ot E03.9 HYPOTHYROIDISM, UNSPECIFIED 01/03/2016 JJ AGARWALAN N Ot 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 01/03/2016 SHIREEN AGARWAL N Ot I12.9 HYPERTENSIVE CHRONIC KIDNEY DISEASE W ST 01/03/2016 SHIREEN AGARWAL N Ot 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 01/03/2016 SHIREEN AGARWAL N Ot I48.91 UNSPECIFIED ATRIAL FIBRILLATION 01/03/2016 SHIREEN AGARWAL N Ot N18.3 CHRONIC KIDNEY DISEASE, STAGE 3 (MODERAT 01/03/2016 SHIREEN AGARWAL N Ot Z79.899 OTHER HALFWAY (CURRENT) DRUG THERAPY 01/03/2016 Ot 272.4 HYPE RLIPIDEMIA NEC/NOS 01/03/2016 Ot 250.00 AWA B NALLELY WO COMPL, TYPE II OR UNSPEC TY 01/03/2016 CHICHI RIVAS PHARMACY INNOVATION ASSISTANT Ot 574.20 CHOLELITHIASIS NOS 01/03/2016 CHICHI RIVAS PHARMACY INNOVATION ASSISTANT Ot 789.1 HEPATOMEGALY 01/03/2016 LINDA KHOURY FACC, [...] Ot 401.9 HYPERTENSION NOS 01/03/2016 LINDA KHOURY [facility], [facility] CCDS Ot 427.0 PAROX ATRIAL TACHYCARDIA 01/03/2016 LINDA KHOURY [facility], [facility] CCDS Ot 785.1 PALPITATIONS 01/03/2016 Ot 244.9 HYPO THYROIDISM NOS 01/03/2016 Ot 280.9 IRON DEFIC ANEMIA NOS 01/03/2016 Ot 585.3 RELIGIOUS HEALER LEANDRO KIDNEY DISEASE, STAGE III (MODER 01/03/2016 Ot V58.69 OTH MED,LT,CURRENT USE 01/03/2016 Ot 250.02 AWA B NALLELY WO COMPL, TYPE II OR UNSPEC TY 01/03/2016 HARVEY KHOURY, CLAUDE Clement Ot 574.20 CHOLELITHIASIS NOS 01/03/2016 HARVEY KHOURY, CLAUDE Clement Ot 585.2 CHRONIC KIDNEY DISEASE, STAGE II (MILD) 01/03/2016 OVI KHOURY, TORI-FRANKIE Ot E03.9 HYPOTHYROIDISM, [...] 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 01/03/2016 SHIREEN AGARWAL Ot I12.9 HYPERTENSIVE CHRONIC KIDNEY DISEASE W ST 01/03/2016 SHIREEN AGARWAL Ot 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 01/03/2016 SHIREEN AGARWAL Ot I48.91 UNSPECIFIED ATRIAL FIBRILLATION 01/03/2016 SHIREEN AGARWAL Ot N18.3 CHRONIC KIDNEY DISEASE, STAGE 3 (MODERAT 01/03/2016 SHIREEN AGARWAL Ot Z79.899 OTHER HOSPITAL SECURITY OFFICER (CURRENT) DRUG THERAPY 01/03/2016 SHIREEN AGARWAL Ot D50.9 IRON DEFICIENCY ANEMIA, UNSPECIFIED 01/03/2016 SHIREEN AGARWAL Ot Z79.899 OTHER HOSPITAL SECURITY OFFICER (CURRENT) DRUG THERAPY 01/04/2016 Ot 272.4 HYPE RLIPIDEMIA NEC/NOS 01/04/2016 Ot 250.00 AWA B NALLELY WO COMPL, TYPE II OR UNSPEC TY 01/04/2016 CHICHI RIVAS PHARMACY INNOVATION ASSISTANT Ot 574.20 CHOLELITHIASIS NOS 01/04/2016 CHICHI RIVAS PHARMACY INNOVATION ASSISTANT Ot 789.1 HEPATOMEGALY 01/04/2016 LINDA KHOURY FACC, [...] TYPE II OR UNSPEC TY 01/04/2016 LINDA GONZALESC, ALI FACP CCDS Ot 401.9 HYPERTENSION NOS 01/04/2016 LINDA KHOURY FACC, ALI FACP CCDS Ot 427.0 PAROX ATRIAL TACHYCARDIA 01/04/2016 LINDA KHOURY FACC, ALI FACP CCDS Ot 785.1 PALPITATIONS 01/04/2016 Ot 244.9 HYPO THYROIDISM NOS 01/04/2016 Ot 280.9 IRON DEFIC ANEMIA NOS 01/04/2016 Ot 585.3 RELIGIOUS HEALER LEANDRO KIDNEY DISEASE, STAGE III (MODER 01/04/2016 Ot V58.69 OTH MED,LT,CURRENT USE 01/04/2016 Ot 250.02 AWA Eduardo NALLELY WO COMPL, TYPE II OR UNSPEC [...] I10 ESSENTIAL (PRIMARY) HYPERTENSION 01/04/2016 OVI KHOURY, FLORIDALMAU Ot E03.9 HYPOTHYROIDISM, UNSPECIFIED 01/04/2016 OVI KHOURY, TORI-FRANKIE Ot E11.9 TYPE 2 DIABETES MELLITUS WITHOUT COMPLIC 01/04/2016 OVI KHOURY, FLORIDALMAU Ot E78.5 HYPERLIPIDEMIA, UNSPECIFIED 01/04/2016 OVI KHOURY, TORI-FRANKIE Ot I10 ESSENTIAL (PRIMARY) HYPERTENSION 01/04/2016 SHIREEN AGARWAL N Ot D64.9 ANEMIA, UNSPECIFIED 01/04/2016 SHIREEN AGARWAL N Ot E03.9 HYPOTHYROIDISM, UNSPECIFIED 01/04/2016 SHIREEN AGARWAL N Ot 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 01/04/2016 SHIREEN AGARWAL N Ot I12.9 HYPERTENSIVE CHRONIC KIDNEY DISEASE W ST 01/04/2016 SHIREEN AGARWAL N Ot 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 01/04/2016 SHIREEN AGARWAL N Ot I48.91 UNSPECIFIED ATRIAL FIBRILLATION 01/04/2016 SHIREEN AGARWAL N Ot N18.3 CHRONIC KIDNEY DISEASE, STAGE 3 (MODERAT 01/04/2016 SHIREEN AGARWAL N Ot Z79.899 OTHER HOSPITAL SECURITY OFFICER (CURRENT) DRUG THERAPY 01/04/2016 SHIREEN AGARWAL N Ot D50.9 IRON DEFICIENCY ANEMIA, UNSPECIFIED 01/04/2016 ANY, BOBAN N Ot Z79.899 OTHER HALFWAY (CURRENT) DRUG THERAPY 01/07/2016 ANYSHIREEN N Ot D50.9 IRON DEFICIENCY ANEMIA, UNSPECIFIED 01/07/2016 ANY, BOBAN N Ot Z79.899 OTHER HOSPITAL SECURITY OFFICER (CURRENT) DRUG THERAPY 01/13/2016 ANYSHIREEN N Ot D50.9 IRON DEFICIENCY ANEMIA, UNSPECIFIED 01/13/2016 ANY BOBAN N Ot Z79.899 OTHER HOSPITAL SECURITY OFFICER (CURRENT) DRUG THERAPY 08/05/2016 Ot 250.00 AWA B NALLELY WO COMPL, TYPE II OR UNSPEC TY 08/05/2016 CHICHI RIVAS PHARMACY INNOVATION ASSISTANT Ot 574.20 CHOLELITHIASIS NOS 08/05/2016 CHICHI RIVAS PHARMACY INNOVATION ASSISTANT Ot 789.1 HEPATOMEGALY 08/05/2016 LINDA KHOURY FACC, ALI FACP CCDS Ot 401.9 HYPERTENSION NOS 08/05/2016 LINDA KHOURY FACC, ALI FACP CCDS Ot 414.00 CORON ATHEROSCLER NOS TYPE VESSEL, NATIV 08/05/2016 LINDA KHOURY FACC, ALI FACP CCDS Ot 427.31 ATRIAL FIBRILLATION 08/05/2016 TY KHOURY, TONIE Diaz Ot V72. 84 EXAM PRE-OPERATIVE NOS 08/05/2016 LINDA GONZALESC, ALI FACP CCDS Ot 250.00 [...] IRON DEFIC ANEMIA NOS 08/05/2016 Ot 585.3 RELIGIOUS HEALER LEANDRO KIDNEY DISEASE, STAGE III (MODER 08/05/2016 Ot V58.69 OTH MED,LT,CURRENT USE 08/05/2016 Ot 250.02 AWA B NALLELY WO COMPL, TYPE II OR UNSPEC TY 08/05/2016 HARVEY KHOURY, CLAUDE Clement Ot 574.20 CHOLELITHIASIS NOS 08/05/2016 CLAUDE GABRIEL MD Ot 585.2 CHRONIC KIDNEY DISEASE, STAGE II (MILD) 08/05/2016 OVI KHOURY, WU Ot E03.9 HYPOTHYROIDISM, UNSPECIFIED 08/05/2016 WU DIOR MD Ot E11.6 5 TYPE 2 DIABETES MELLITUS WITH HYPERGLYCE 08/05/2016 OVI KHOURY, WU Ot E78.5 HYPERLIPIDEMIA, UNSPECIFIED 08/05/2016 OVI KHOURY, WU Ot I10 ESSENTIAL (PRIMARY) HYPERTENSION 08/05/2016 DIOR MD, TORI-FRANKIE Ot E03.9 HYPOTHYROIDISM, UNSPECIFIED 08/05/2016 OVI KHOURY, TORI-FRANKIE Ot E11.9 TYPE 2 DIABETES MELLITUS WITHOUT COMPLIC 08/05/2016 OVI KHOURY, TORI-FRANKIE Ot E78.5 HYPERLIPIDEMIA, UNSPECIFIED 08/05/2016 OVI KHOURY, TORI-FRANKIE Ot I10 ESSENTIAL (PRIMARY) HYPERTENSION 08/05/2016 ANY BOBAN N Ot D64.9 ANEMIA, UNSPECIFIED 08/05/2016 ANY, BOBAN N Ot E03.9 HYPOTHYROIDISM, UNSPECIFIED 08/05/2016 ANY, BOBAN N Ot 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 08/05/2016 ANY, BOBAN N Ot I12.9 HYPERTENSIVE CHRONIC KIDNEY DISEASE W ST 08/05/2016 ANY, BOBAN N Ot 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 08/05/2016 ANY, BOBAN N Ot I48.91 UNSPECIFIED ATRIAL FIBRILLATION 08/05/2016 ANY BOBAN N Ot N18.3 CHRONIC KIDNEY DISEASE, STAGE 3 (MODERAT 08/05/2016 ANY, BOBAN N Ot Z79.899 OTHER HOSPITAL SECURITY OFFICER (CURRENT) DRUG THERAPY 09/15/2016 ANY, BOBAN N Ot D50.9 IRON DEFICIENCY ANEMIA, UNSPECIFIED 09/15/2016 ANY BOBAN N Ot E03.9 HYPOTHYROIDISM, UNSPECIFIED 09/15/2016 ANY, BOBAN N Ot 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 09/15/2016 ANY, BOBAN N Ot I12.9 HYPERTENSIVE CHRONIC KIDNEY DISEASE W ST 09/15/2016 ANY, BOBAN N Ot 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 09/15/2016 ANY, BOBAN N Ot I48.91 UNSPECIFIED ATRIAL FIBRILLATION 09/15/2016 ANY, BOBAN N Ot N18.3 CHRONIC KIDNEY DISEASE, STAGE 3 (MODERAT 09/15/2016 ANY, BOBAN N Ot Z79.899 OTHER HALFWAY (CURRENT) DRUG THERAPY 09/17/2016 Ot 250.00 AWA B NALLELY WO COMPL, TYPE II OR UNSPEC TY 09/17/2016 CHICHI RIVAS PHARMACY INNOVATION ASSISTANT Ot 574.20 CHOLELITHIASIS NOS 09/17/2016 CHICHI RIVAS PHARMACY INNOVATION ASSISTANT Ot 789.1 HEPATOMEGALY 09/17/2016 LINDA KHOURY FACC, [...] IRON DEFIC ANEMIA NOS 09/17/2016 Ot 585.3 RELIGIOUS HEALER LEANDRO KIDNEY DISEASE, STAGE III (MODER 09/17/2016 Ot V58.69 OT MED,LT,CURRENT USE 09/17/2016 Ot 250.02 AWA B NALLELY WO COMPL, TYPE II OR UNSPEC TY 09/17/2016 HARVEY KHOURY, CLAUDE Clement Ot 574.20 CHOLELITHIASIS NOS 09/17/2016 HARVEY KHOURY, CLAUDE Clement Ot 585.2 CHRONIC KIDNEY DISEASE, STAGE II (MILD) 09/17/2016 OVI KHOURY, WU Ot E03.9 HYPOTHYROIDISM, UNSPECIFIED 09/17/2016 OVI KHOURY, UW Ot E11.6 5 TYPE 2 DIABETES MELLITUS WITH HYPERGLYCE 09/17/2016 OVI KHOURY, TORI-FRANKIE Ot E78.5 HYPERLIPIDEMIA, UNSPECIFIED 09/17/2016 OVI KHOURY, TORI-FRANKIE Ot I10 ESSENTIAL (PRIMARY) HYPERTENSION 09/17/2016 OVI KHOURY, TORI-FRANKIE Ot E03.9 HYPOTHYROIDISM, UNSPECIFIED 09/17/2016 OVI KHOURY, TORI-FRANKIE Ot E11.9 TYPE 2 DIABETES MELLITUS WITHOUT COMPLIC 09/17/2016 OVI KHOURY, WU Ot E78.5 HYPERLIPIDEMIA, UNSPECIFIED 09/17/2016 TORI DIOR MD-FRANKIE Ot I10 ESSENTIAL (PRIMARY) HYPERTENSION 09/17/2016 ANYSHIREEN BALDWIN N Ot D64.9 ANEMIA, UNSPECIFIED 09/17/2016 ANYSHIREEN BALDWIN N Ot E03.9 HYPOTHYROIDISM, UNSPECIFIED 09/17/2016 ANY, BOBAN N Ot 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 09/17/2016 ANYSHIREEN BALDWIN N Ot I12.9 HYPERTENSIVE CHRONIC KIDNEY DISEASE W ST 09/17/2016 SHIREEN AGARWAL N Ot 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 09/17/2016 SHIREEN AGARWAL N Ot I48.91 UNSPECIFIED ATRIAL FIBRILLATION 09/17/2016 ANYSHIREEN BALDWIN N Ot N18.3 CHRONIC KIDNEY DISEASE, STAGE 3 (MODERAT 09/17/2016 SHIREEN AGARWAL N Ot Z79.899 OTHER HOSPITAL SECURITY OFFICER (CURRENT) DRUG THERAPY 09/17/2016 SHIREEN AGARWAL N Ot D50.9 IRON DEFICIENCY ANEMIA, UNSPECIFIED 09/17/2016 SHIREEN AGARWAL N Ot E03.9 HYPOTHYROIDISM, UNSPECIFIED 09/17/2016 ANYSHIREEN BALDWIN N Ot 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 09/17/2016 ANYSHIREEN BALDWIN N Ot I12.9 HYPERTENSIVE CHRONIC KIDNEY DISEASE W ST 09/17/2016 ANYSHIREEN BALDWIN N Ot 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 09/17/2016 ANYSHIREEN BALDWIN N Ot I48.91 UNSPECIFIED ATRIAL FIBRILLATION 09/17/2016 SHIREEN AGARWAL N Ot N18.3 CHRONIC KIDNEY DISEASE, STAGE 3 (MODERAT 09/17/2016 SHIREEN AGARWAL N Ot Z79.899 OTHER HOSPITAL SECURITY OFFICER (CURRENT) DRUG THERAPY 09/17/2016 KIERAN KHOURY, BERNY Champion Ot 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 09/17/2016 Ot 250.00 AWA B NALLELY WO COMPL, TYPE II OR UNSPEC TY 09/17/2016 CHICHI RIVAS PHARMACY INNOVATION ASSISTANT Ot 574.20 CHOLELITHIASIS NOS 09/17/2016 CHICHI RIVAS PHARMACY INNOVATION ASSISTANT Ot 789.1 HEPATOMEGALY 09/17/2016 LINDA KHOURY FACC, ARNIE FACP CCDS Ot 401.9 HYPERTENSION NOS 09/17/2016 LINDA KHOURY FACC, ALI FACP CCDS Ot 414.00 CORON ATHEROSCLER NOS TYPE VESSEL, NATIV 09/17/2016 LINDA KHOURY FAC, ALI FACP CCDS Ot 427.31 ATRIAL FIBRILLATION 09/17/2016 TY KHOURY, TONIE Diaz Ot V72. 84 EXAM PRE-OPERATIVE NOS 09/17/2016 LINDA KHOURY FACC, ALI FACP CCDS Ot 250.00 DIAB NALLELY WO COMPL, TYPE II OR UNSPEC TY 09/17/2016 LINDA KHOURY FACC, ALI FACP CCDS Ot 401.9 HYPERTENSION NOS 09/17/2016 LINDA KHOUYR FACC, ALI FACP CCDS Ot 427.0 PAROX ATRIAL TACHYCARDIA 09/17/2016 LINDA KHOURY FACC, ALI FACP CCDS Ot 785.1 PALPITATIONS 09/17/2016 Ot 244.9 HYPO THYROIDISM NOS 09/17/2016 Ot 280.9 IRON DEFIC ANEMIA NOS 09/17/2016 Ot 585.3 RELIGIOUS HEALER LEANDRO KIDNEY DISEASE, STAGE III (MODER 09/17/2016 [...] SHIREEN AGARWAL Ot D64.9 ANEMIA, UNSPECIFIED 09/17/2016 ANY, BOBAN N Ot E03.9 HYPOTHYROIDISM, UNSPECIFIED 09/17/2016 ANYSHIREEN BALDWIN N Ot 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 09/17/2016 ANYSHIREEN BALDWIN N Ot I12.9 HYPERTENSIVE CHRONIC KIDNEY DISEASE W ST 09/17/2016 ANYSHIREEN BALDWIN N Ot 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 09/17/2016 SHIREEN AGARWAL N Ot I48.91 UNSPECIFIED ATRIAL FIBRILLATION 09/17/2016 SHIREEN AGARWAL N Ot N18.3 CHRONIC KIDNEY DISEASE, STAGE 3 (MODERAT 09/17/2016 SHIREEN AGARWAL N Ot Z79.899 OTHER HALFWAY (CURRENT) DRUG THERAPY 09/17/2016 SHIREEN AGARWAL N Ot D50.9 IRON DEFICIENCY ANEMIA, UNSPECIFIED 09/17/2016 SHIREEN AGARWAL N Ot E03.9 HYPOTHYROIDISM, UNSPECIFIED 09/17/2016 ANYSHIREEN BALDWIN N Ot 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 09/17/2016 ANYSHIREEN BALDWIN N Ot I12.9 HYPERTENSIVE CHRONIC KIDNEY DISEASE W ST 09/17/2016 ANYSHIREEN BALDWIN N Ot 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 09/17/2016 ANYSHIREEN BALDWIN N Ot I48.91 UNSPECIFIED ATRIAL FIBRILLATION 09/17/2016 SHIREEN AGARWAL N Ot N18.3 CHRONIC KIDNEY DISEASE, STAGE 3 (MODERAT 09/17/2016 SHIREEN AGARWAL N Ot Z79.899 OTHER HALFWAY (CURRENT) DRUG THERAPY 09/17/2016 KIERAN KHOURY, BERNY Champion Ot 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 09/17/2016 Ot 250.00 AWA B NALLELY WO COMPL, TYPE II OR UNSPEC TY 09/17/2016 CHICHI RIVAS PHARMACY INNOVATION ASSISTANT Ot 574.20 CHOLELITHIASIS NOS 09/17/2016 CHICHI RIVAS PHARMACY INNOVATION ASSISTANT Ot 789.1 HEPATOMEGALY 09/17/2016 LINDA KHOURY FACC, [...] IRON DEFIC ANEMIA NOS 09/17/2016 Ot 585.3 RELIGIOUS HEALER LEANDRO KIDNEY DISEASE, STAGE III (MODER 09/17/2016 Ot V58.69 OTH MED,LT,CURRENT USE 09/17/2016 Ot 250.02 AWA B NALLELY YODER COMPL, TYPE II OR UNSPEC TY 09/17/2016 [...] 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 09/17/2016 ANY, BOBAN N Ot I12.9 HYPERTENSIVE CHRONIC KIDNEY DISEASE W ST 09/17/2016 ANY, BOBAN N Ot 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 09/17/2016 ANY, BOBAN N Ot I48.91 UNSPECIFIED ATRIAL FIBRILLATION 09/17/2016 ANY, BOBAN N Ot N18.3 CHRONIC KIDNEY DISEASE, STAGE 3 (MODERAT 09/17/2016 ANY, BOBAN N Ot Z79.899 OTHER HOSPITAL SECURITY OFFICER (CURRENT) DRUG THERAPY 09/17/2016 ANY, BOBAN N Ot D50.9 IRON DEFICIENCY ANEMIA, UNSPECIFIED 09/17/2016 ANY, BOBAN N Ot E03.9 HYPOTHYROIDISM, UNSPECIFIED 09/17/2016 ANY, BOBAN N Ot 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 09/17/2016 ANY, BOBAN N Ot I12.9 HYPERTENSIVE CHRONIC KIDNEY DISEASE W ST 09/17/2016 ANY, BOBAN N Ot 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 09/17/2016 ANY, BOBAN N Ot I48.91 UNSPECIFIED ATRIAL FIBRILLATION 09/17/2016 ANY, BOBAN N Ot N18.3 CHRONIC KIDNEY DISEASE, STAGE 3 (MODERAT 09/17/2016 ANY, BOBAN N Ot Z79.899 OTHER HALFWAY (CURRENT) DRUG THERAPY 09/17/2016 KIERAN KHOURY, BERNY R Ot 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 09/17/2016 ANY, BOBAN N Ot D50.9 IRON DEFICIENCY ANEMIA, UNSPECIFIED 09/17/2016 ANY, BOBAN N Ot E03.9 HYPOTHYROIDISM, UNSPECIFIED 09/17/2016 ANY, BOBAN N Ot 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 09/17/2016 ANY, BOBAN N Ot I12.9 HYPERTENSIVE CHRONIC KIDNEY DISEASE W ST 09/17/2016 ANY, BOBAN N Ot 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 09/17/2016 ANY, BOBAN N Ot I48.91 UNSPECIFIED ATRIAL FIBRILLATION 09/17/2016 ANY, BOBAN N Ot N18.3 CHRONIC KIDNEY DISEASE, STAGE 3 (MODERAT 09/17/2016 ANY, BOBAN N Ot Z79.899 OTHER HOSPITAL SECURITY OFFICER (CURRENT) DRUG THERAPY 09/17/2016 KHBERNY SERRANO MD Ot 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 09/17/2016 BERNY ALCARAZ MD Ot 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 10/09/2016 BERNY ALCARAZ MD Ot 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 10/09/2016 Ot 250.00 AWA B NALLELY WO COMPL, TYPE II OR UNSPEC TY 10/09/2016 ROBCHICHI PHARMACY INNOVATION ASSISTANT Ot 574.20 CHOLELITHIASIS NOS 10/09/2016 CHICHI RIVAS PHARMACY INNOVATION ASSISTANT Ot 789.1 HEPATOMEGALY 10/09/2016 LINDA KHOURY FACC, [...] IRON DEFIC ANEMIA NOS 10/09/2016 Ot 585.3 RELIGIOUS HEALER LEANDRO KIDNEY DISEASE, STAGE III (MODER 10/09/2016 Ot V58.69 OT MED,LT,CURRENT USE 10/09/2016 Ot 250.02 AWA B NALLELY WO COMPL, TYPE II OR UNSPEC TY 10/09/2016 HARVEY KHOURY, CLAUDE Clement Ot 574.20 CHOLELITHIASIS NOS 10/09/2016 HARVEY KHOURY, CLAUDE Clement Ot 585.2 CHRONIC KIDNEY DISEASE, STAGE II (MILD) 10/09/2016 OVI KHOURY, WU Ot E03.9 HYPOTHYROIDISM, UNSPECIFIED 10/09/2016 OVI KHOURY, WU Ot E11.6 5 TYPE 2 DIABETES MELLITUS WITH HYPERGLYCE 10/09/2016 OVI KHOURY, WU Ot E78.5 HYPERLIPIDEMIA, UNSPECIFIED 10/09/2016 OVI KHOURY, FLORIDALMAU Ot I10 ESSENTIAL (PRIMARY) HYPERTENSION 10/09/2016 OVI KHOURY, FLORIDALMAU Ot E03.9 HYPOTHYROIDISM, UNSPECIFIED 10/09/2016 OVI KHOURY, FLORIDALMAU Ot E11.9 TYPE 2 DIABETES MELLITUS WITHOUT COMPLIC 10/09/2016 OVI KHOURY, WU Ot E78.5 HYPERLIPIDEMIA, UNSPECIFIED 10/09/2016 OVI KHOURY, TORI-FRANKIE Ot I10 ESSENTIAL (PRIMARY) HYPERTENSION 10/09/2016 JJ AGARWALAN N Ot D64.9 ANEMIA, UNSPECIFIED 10/09/2016 ANY, BOBAN N Ot E03.9 HYPOTHYROIDISM, UNSPECIFIED 10/09/2016 ANY, BOBAN N Ot 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 10/09/2016 ANY, BOBAN N Ot I12.9 HYPERTENSIVE CHRONIC KIDNEY DISEASE W ST 10/09/2016 ANY, BOBAN N Ot 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 10/09/2016 ANY, BOBAN N Ot I48.91 UNSPECIFIED ATRIAL FIBRILLATION 10/09/2016 ANY, BOBAN N Ot N18.3 CHRONIC KIDNEY DISEASE, STAGE 3 (MODERAT 10/09/2016 ANY, BOBAN N Ot Z79.899 OTHER HALFWAY (CURRENT) DRUG THERAPY 10/09/2016 ANY BOBAN N Ot D50.9 IRON DEFICIENCY ANEMIA, UNSPECIFIED 10/09/2016 ANY BOBAN N Ot E03.9 HYPOTHYROIDISM, UNSPECIFIED 10/09/2016 ANY, BOBAN N Ot 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 10/09/2016 ANY, BOBAN N Ot I12.9 HYPERTENSIVE CHRONIC KIDNEY DISEASE W ST 10/09/2016 ANY, BOBAN N Ot 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 10/09/2016 ANY, BOBAN N Ot I48.91 UNSPECIFIED ATRIAL FIBRILLATION 10/09/2016 ANY, BOBAN N Ot N18.3 CHRONIC KIDNEY DISEASE, STAGE 3 (MODERAT 10/09/2016 ANY, BOBAN N Ot Z79.899 OTHER HALFWAY (CURRENT) DRUG THERAPY 10/09/2016 KIERAN KHOURY, BERNY R Ot 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 10/09/2016 KIERAN KHOURY, M ROMA Ot I47 .1 SUPRAVENTRICULAR TACHYCARDIA 10/09/2016 KIERAN KHOURY, Wei BRANDON Ot I48.91 UNSPECIFIED ATRIAL FIBRILLATION 10/30/2016 KIERAN KHOURY, BERNY R Ot 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 11/03/2016 ANY, BOBAN N Ot D50.9 IRON DEFICIENCY ANEMIA, UNSPECIFIED 11/03/2016 ANY, BOBAN N Ot E03.9 HYPOTHYROIDISM, UNSPECIFIED 11/03/2016 ANY, BOBAN N Ot 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 11/03/2016 ANY, BOBAN N Ot I12.9 HYPERTENSIVE CHRONIC KIDNEY DISEASE W ST 11/03/2016 ANY, BOBAN N Ot 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 11/03/2016 ANY, BOBAN N Ot I48.91 UNSPECIFIED ATRIAL FIBRILLATION 11/03/2016 ANY, BOBAN N Ot N18.3 CHRONIC KIDNEY DISEASE, STAGE 3 (MODERAT 11/03/2016 ANY, BOBAN N Ot Z79.899 OTHER HALFWAY (CURRENT) DRUG THERAPY 11/04/2016 ANY, BOBAN N Ot D50.9 IRON DEFICIENCY ANEMIA, UNSPECIFIED 11/04/2016 ANY, BOBAN N Ot E03.9 HYPOTHYROIDISM, UNSPECIFIED 11/04/2016 ANY, BOBAN N Ot 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 11/04/2016 ANY, BOBAN N Ot I12.9 HYPERTENSIVE CHRONIC KIDNEY DISEASE W ST 11/04/2016 ANY, BOBAN N Ot 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 11/04/2016 ANY, BOBAN N Ot I48.91 UNSPECIFIED ATRIAL FIBRILLATION 11/04/2016 ANY, BOBAN N Ot N18.3 CHRONIC KIDNEY DISEASE, STAGE 3 (MODERAT 11/04/2016 ANY, BOBAN N Ot Z79.899 OTHER HALFWAY (CURRENT) DRUG THERAPY 11/17/2016 KIERAN KHOURY, BERNY R Ot 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 11/18/2016 ANY, BOBAN N Ot D50.9 IRON DEFICIENCY ANEMIA, UNSPECIFIED 11/18/2016 ANY, BOBAN N Ot E03.9 HYPOTHYROIDISM, UNSPECIFIED 11/18/2016 ANY, BOBAN N Ot 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 11/18/2016 ANY, BOBAN N Ot I12.9 HYPERTENSIVE CHRONIC KIDNEY DISEASE W ST 11/18/2016 ANY, BOBAN N Ot 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 11/18/2016 ANY, BOBAN N Ot I48.91 UNSPECIFIED ATRIAL FIBRILLATION 11/18/2016 ANY, BOBAN N Ot N18.3 CHRONIC KIDNEY DISEASE, STAGE 3 (MODERAT 11/18/2016 ANY, BOBAN N Ot Z79.899 OTHER HOSPITAL SECURITY OFFICER (CURRENT) DRUG THERAPY 12/10/2016 ANY, BOBAN N Ot D50.9 IRON DEFICIENCY ANEMIA, UNSPECIFIED 12/10/2016 ANY, BOBAN N Ot E03.9 HYPOTHYROIDISM, UNSPECIFIED 12/10/2016 ANY, BOBAN N Ot 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 12/10/2016 ANY, BOBAN N Ot I12.9 HYPERTENSIVE CHRONIC KIDNEY DISEASE W ST 12/10/2016 ANY, BOBAN N Ot 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 12/10/2016 ANY, BOBAN N Ot I48.91 UNSPECIFIED ATRIAL FIBRILLATION 12/10/2016 ANY, BOBAN N Ot N18.3 CHRONIC KIDNEY DISEASE, STAGE 3 (MODERAT 12/10/2016 ANY, BOBAN N Ot Z79.899 OTHER HALFWAY (CURRENT) DRUG THERAPY 12/12/2016 ANY BOBAN N Ot D50.9 IRON DEFICIENCY ANEMIA, UNSPECIFIED 12/12/2016 ANY, BOBAN N Ot E03.9 HYPOTHYROIDISM, UNSPECIFIED 12/12/2016 ANY, BOBAN N Ot 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 12/12/2016 ANY, BOBAN N Ot I12.9 HYPERTENSIVE CHRONIC KIDNEY DISEASE W ST 12/12/2016 ANY, BOBAN N Ot 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 12/12/2016 ANY, BOBAN N Ot I48.91 UNSPECIFIED ATRIAL FIBRILLATION 12/12/2016 ANY, BOBAN N Ot N18.3 CHRONIC KIDNEY DISEASE, STAGE 3 (MODERAT 12/12/2016 SHIREEN AGARWAL Ot Z79.899 OTHER HOSPITAL SECURITY OFFICER (CURRENT) DRUG THERAPY 12/16/2016 KIERAN KHOURY, Wei BRANDON Ot I47 .1 SUPRAVENTRICULAR TACHYCARDIA 12/16/2016 KIERAN KHOURY, Wei BRANDON Ot I48.91 UNSPECIFIED ATRIAL FIBRILLATION 12/20/2016 KIERAN KHOURY, Wei BRANDON Ot I47 .1 SUPRAVENTRICULAR TACHYCARDIA 12/20/2016 KIERAN KHOURY, Wei BRANDON Ot I48.91 UNSPECIFIED ATRIAL FIBRILLATION 12/31/2016 Ot 250.00 AWA B NALLELY WO COMPL, TYPE II OR UNSPEC TY 12/31/2016 ROBCHICHI PHARMACY INNOVATION ASSISTANT Ot 574.20 CHOLELITHIASIS NOS 12/31/2016 CHICHI RIVAS PHARMACY INNOVATION ASSISTANT Ot 789.1 HEPATOMEGALY 12/31/2016 LINDA KHOURY FACC, ALI FACP CCDS Ot 401.9 HYPERTENSION NOS 12/31/2016 LINDA KHOURY FACC, ALI FACP CCDS Ot 414.00 CORON ATHEROSCLER NOS TYPE VESSEL, NATIV 12/31/2016 LINDA KHOURY FACC, ALI FACP CCDS Ot 427.31 ATRIAL FIBRILLATION 12/31/2016 TY KHOURY, OTNIE Diaz Ot V72. 84 EXAM PRE-OPERATIVE NOS [...] IRON DEFIC ANEMIA NOS 12/31/2016 Ot 585.3 RELIGIOUS HEALER LEANDRO KIDNEY DISEASE, STAGE III (MODER 12/31/2016 Ot V58.69 OTH MED,LT,CURRENT USE 12/31/2016 Ot 250.02 AWA B NALLELY WO COMPL, TYPE II OR UNSPEC TY 12/31/2016 HARVEY KHOURY, CLAUDE S Ot 574.20 CHOLELITHIASIS NOS 12/31/2016 ABOUL-MAGD MD, AHMED S Ot 585.2 CHRONIC KIDNEY DISEASE, STAGE II (MILD) 12/31/2016 OVI KHOURY, WU Ot E03.9 HYPOTHYROIDISM, UNSPECIFIED 12/31/2016 OVI KHOURY, FLORIDALMAU Ot E11.6 5 TYPE 2 DIABETES MELLITUS WITH HYPERGLYCE 12/31/2016 OVI KHOURY, WU Ot E78.5 HYPERLIPIDEMIA, UNSPECIFIED 12/31/2016 OVI KHOURY, JAYCOBFRANKIE Ot I10 ESSENTIAL (PRIMARY) HYPERTENSION 12/31/2016 OVI KHOURY, FLORIDALMAU Ot E03.9 HYPOTHYROIDISM, UNSPECIFIED 12/31/2016 OVI KHOURY, FLORIDALMAU Ot E11.9 TYPE 2 DIABETES MELLITUS WITHOUT COMPLIC 12/31/2016 OVI KHOURY, WU Ot E78.5 HYPERLIPIDEMIA, UNSPECIFIED 12/31/2016 OVI KHOURY, TORI-FRANKIE Ot I10 ESSENTIAL (PRIMARY) HYPERTENSION 12/31/2016 SHIREEN AGARWAL Ot D64.9 ANEMIA, UNSPECIFIED 12/31/2016 SHIREEN AGARWAL Ot E03.9 HYPOTHYROIDISM, UNSPECIFIED 12/31/2016 SHIREEN AGARWAL N Ot 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 12/31/2016 SHIREEN AGARWAL N Ot I12.9 HYPERTENSIVE CHRONIC KIDNEY DISEASE W ST 12/31/2016 SHIREEN AGARWAL N Ot 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 12/31/2016 SHIREEN AGARWAL N Ot I48.91 UNSPECIFIED ATRIAL FIBRILLATION 12/31/2016 SHIREEN AGARWAL N Ot N18.3 CHRONIC KIDNEY DISEASE, STAGE 3 (MODERAT 12/31/2016 SHIREEN AGARWAL Ot Z79.899 OTHER HOSPITAL SECURITY OFFICER (CURRENT) DRUG THERAPY 12/31/2016 KIERAN KHOURY, BERNY R Ot 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 12/31/2016 KIERAN KHOURY, BERNY R Ot 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 12/31/2016 SHIREEN AGARWAL N Ot D50.9 IRON DEFICIENCY ANEMIA, UNSPECIFIED 12/31/2016 SHIREEN AGARWAL N Ot E03.9 HYPOTHYROIDISM, UNSPECIFIED 12/31/2016 SHIREEN AGARWAL N Ot 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 12/31/2016 SHIREEN AGARWAL N Ot I12.9 HYPERTENSIVE CHRONIC KIDNEY DISEASE W ST 12/31/2016 SHIREEN AGARWAL Ot 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 12/31/2016 SHIREEN AGARWAL Solange Ot I48.91 UNSPECIFIED ATRIAL FIBRILLATION 12/31/2016 SHIREEN AGARWAL Ot N18.3 CHRONIC KIDNEY DISEASE, STAGE 3 (MODERAT 12/31/2016 SHIREEN AGARWAL Ot Z79.899 OTHER HALFWAY (CURRENT) DRUG THERAPY 12/31/2016 KIERAN KHOURY, Wei BRANDON Ot I47 .1 SUPRAVENTRICULAR TACHYCARDIA 12/31/2016 KIERAN KHOURY, Wei BRANDON Ot I48.91 UNSPECIFIED ATRIAL FIBRILLATION 01/01/2017 KIERAN KHOURY, Wei BRANDON Ot I47 .1 SUPRAVENTRICULAR TACHYCARDIA 01/01/2017 KIERAN KHOURY, Wei BRANDON Ot I48.91 UNSPECIFIED ATRIAL FIBRILLATION 01/01/2017 NWAGWU, ISIDORE O HAND TOOL LAPPER Ot D64.9 ANEMIA, UNSPECIFIED 01/01/2017 NWJOSE DE JESUSWU, ANNELDORE Jasmina HAND TOOL LAPPER Ot D64.9 ANEMIA, UNSPECIFIED 01/02/2017 SABRINA ROSSI DO Ot D50. 9 IRON DEFICIENCY ANEMIA, UNSPECIFIED 01/02/2017 SABRINA ROSSI DO Ot E03. 9 HYPOTHYROIDISM, UNSPECIFIED 01/02/2017 SABRINA ROSSI DO Ot E11. 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 01/02/2017 SABRINA ROSSI DO Ot E78. 5 HYPERLIPIDEMIA, UNSPECIFIED 01/02/2017 SABRINA ROSSI DO Ot I12. 9 HYPERTENSIVE CHRONIC KIDNEY DISEASE W ST 01/02/2017 SABRINA ROSSI DO Ot I25. 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 01/02/2017 SABRINA ROSSI DO Ot I47. 1 SUPRAVENTRICULAR TACHYCARDIA 01/02/2017 SABRINA ROSSI DO Ot I48. 91 UNSPECIFIED ATRIAL FIBRILLATION 01/02/2017 SABRINA ROSSI DO Ot K29. 70 GASTRITIS, UNSPECIFIED, WITHOUT BLEEDING 01/02/2017 SABRINA ROSSI DO Ot K44. 9 DIAPHRAGMATIC HERNIA WITHOUT OBSTRUCTION 01/02/2017 SABRINA ROSSI DO Ot K64. 9 UNSPECIFIED HEMORRHOIDS 01/02/2017 SABRINA ROSSI DO Ot N18. 3 CHRONIC KIDNEY DISEASE, STAGE 3 (MODERAT 01/02/2017 SABRINA ROSSI DO Ot R19. 5 OTHER FECAL ABNORMALITIES 01/02/2017 SABRINA ROSSI DO Ot Z79. 01 HOSPITAL SECURITY OFFICER (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 OF ANTICOAGULANT 01/02/2017 SABRINA ROSSI DO Ot Z79. 84 HALFWAY (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 OF ORAL HYPOGLYC 01/02/2017 SABRINA ROSSI DO Ot Z79.899 OTHER HOSPITAL SECURITY OFFICER (CURRENT) DRUG THERAPY 01/02/2017 SABRINA ROSSI DO Ot Z80. 0 FAMILY HISTORY OF MALIGNANT NEOPLASM OF 01/02/2017 SABRINA ROSSI DO Ot Z95. 5 PRESENCE OF CORONARY ANGIOPLASTY IMPLANT 01/06/2017 SABRINA ROSSI DO Ot D50. 9 IRON DEFICIENCY ANEMIA, UNSPECIFIED 01/06/2017 SABRINA ROSSI DO Ot E03. 9 HYPOTHYROIDISM, UNSPECIFIED 01/06/2017 SABRINA ROSSI DO Ot E11. 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 01/06/2017 SABRINA ROSSI DO Ot E78. 5 HYPERLIPIDEMIA, UNSPECIFIED 01/06/2017 SABRINA ROSSI DO Ot I12. 9 HYPERTENSIVE CHRONIC KIDNEY DISEASE W ST 01/06/2017 SABRINA ROSSI DO Ot I25. 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 01/06/2017 SABRINA ROSSI DO Ot I47. [...] 01/06/2017 SABRINA ROSSI DO Ot Z79. 01 HALFWAY (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 OF ANTICOAGULANT 01/06/2017 SABRINA ROSSI DO Ot Z79. 84 HOSPITAL SECURITY OFFICER (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 OF ORAL HYPOGLYC 01/06/2017 SABRINA ROSSI DO Joe Ot Z79.899 OTHER HALFWAY (CURRENT) DRUG THERAPY 01/06/2017 SABRINA ROSSI DO Joe Ot Z80. 0 FAMILY HISTORY OF MALIGNANT NEOPLASM OF 01/06/2017 SABRINA ROSSI DO Joe Ot Z95. 5 PRESENCE OF CORONARY ANGIOPLASTY IMPLANT 01/29/2017 Ot 250.00 AWA B NALLELY WO COMPL, TYPE II OR UNSPEC TY 01/29/2017 CHICHI RIVAS PHARMACY INNOVATION ASSISTANT Ot 574.20 CHOLELITHIASIS NOS 01/29/2017 ROB CHICHI H PHARMACY INNOVATION ASSISTANT Ot 789.1 HEPATOMEGALY 01/29/2017 LINDA KHOURY FACC, [...] IRON DEFIC ANEMIA NOS 01/29/2017 Ot 585.3 RELIGIOUS HEALER LEANDRO KIDNEY DISEASE, STAGE III (MODER 01/29/2017 Ot V58.69 OTH MED,LT,CURRENT USE 01/29/2017 Ot 250.02 AWA B NALLELY WO COMPL, TYPE II OR UNSPEC TY 01/29/2017 HARVEY KHOURY, CLAUDE Clement Ot 574.20 CHOLELITHIASIS NOS 01/29/2017 CLAUDE GABRIEL MD Ot 585.2 CHRONIC KIDNEY DISEASE, STAGE II (MILD) 01/29/2017 OVI KHOURY, WU Ot E03.9 HYPOTHYROIDISM, UNSPECIFIED 01/29/2017 DIOR MD, TORI-FRANKIE Ot E11.6 5 TYPE 2 DIABETES MELLITUS WITH HYPERGLYCE 01/29/2017 OVI KHOURY, TORI-FRANKIE Ot E78.5 HYPERLIPIDEMIA, UNSPECIFIED 01/29/2017 OVI KHOURY, TORI-FRANKIE Ot I10 ESSENTIAL (PRIMARY) HYPERTENSION 01/29/2017 OVI KHOURY, TORI-FRANKIE Ot E03.9 HYPOTHYROIDISM, UNSPECIFIED 01/29/2017 OVI KHOURY, TORI-FARNKIE Ot E11.9 TYPE 2 DIABETES MELLITUS WITHOUT COMPLIC 01/29/2017 OVI KHOURY, TORI-FRANKIE Ot E78.5 HYPERLIPIDEMIA, UNSPECIFIED 01/29/2017 OVI KHOURY, TORI-FRANKIE Ot I10 ESSENTIAL (PRIMARY) HYPERTENSION 01/29/2017 ANYJJ BALDWINAN N Ot D64.9 ANEMIA, UNSPECIFIED 01/29/2017 ANYSHIREEN BALDWIN N Ot E03.9 HYPOTHYROIDISM, UNSPECIFIED 01/29/2017 ANY, BOBAN N Ot 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 01/29/2017 ANY BOBAN N Ot I12.9 HYPERTENSIVE CHRONIC KIDNEY DISEASE W ST 01/29/2017 JJ AGARWALAN N Ot 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 01/29/2017 ANY BOBAN N Ot I48.91 UNSPECIFIED ATRIAL FIBRILLATION 01/29/2017 SHIREEN AGARWAL N Ot N18.3 CHRONIC KIDNEY DISEASE, STAGE 3 (MODERAT 01/29/2017 ANY BOBAN N Ot Z79.899 OTHER HALFWAY (CURRENT) DRUG THERAPY 01/29/2017 KIERAN KHOURY, BERNY R Ot 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 01/29/2017 KIERAN KHOURY, BERNY R Ot 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 01/29/2017 SHIREEN AGARWAL N Ot D50.9 IRON DEFICIENCY ANEMIA, UNSPECIFIED 01/29/2017 SHIREEN AGARWAL N Ot E03.9 HYPOTHYROIDISM, UNSPECIFIED 01/29/2017 ANY, BOBAN N Ot 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 01/29/2017 ANY BOBAN N Ot I12.9 HYPERTENSIVE CHRONIC KIDNEY DISEASE W ST 01/29/2017 JJ AGARWALAN N Ot 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 01/29/2017 SHIREEN AGARWAL N Ot I48.91 UNSPECIFIED ATRIAL FIBRILLATION 01/29/2017 SHIREEN AGARWAL Ot N18.3 CHRONIC KIDNEY DISEASE, STAGE 3 (MODERAT 01/29/2017 SHIREEN AGARWAL Ot Z79.899 OTHER HALFWAY (CURRENT) DRUG THERAPY 01/29/2017 Wei ALCARAZ MD [...] II OR UNSPEC TY 01/29/2017 CHICHI RIVAS PHARMACY INNOVATION ASSISTANT Ot 574.20 CHOLELITHIASIS NOS 01/29/2017 CHICHI RIVAS PHARMACY INNOVATION ASSISTANT Ot 789.1 HEPATOMEGALY 01/29/2017 LINDA KHOURY FACC, [...] IRON DEFIC ANEMIA NOS 01/29/2017 Ot 585.3 RELIGIOUS HEALER LEANDRO KIDNEY DISEASE, STAGE III (MODER 01/29/2017 [...] 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 01/29/2017 SHIREEN AGARWAL Ot I12.9 HYPERTENSIVE CHRONIC KIDNEY DISEASE W ST 01/29/2017 SHIREEN AGARWAL Ot 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 01/29/2017 SHIREEN AGARWAL Ot I48.91 UNSPECIFIED ATRIAL FIBRILLATION 01/29/2017 SHIREEN AGARWAL Ot N18.3 CHRONIC KIDNEY DISEASE, STAGE 3 (MODERAT 01/29/2017 SHIREEN AGARWAL Ot Z79.899 OTHER HALFWAY (CURRENT) DRUG THERAPY 01/29/2017 KIERAN KHOURY, BERNY Champion Ot 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 01/29/2017 KIERAN KHOURY, BERNY Champion Ot 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 01/29/2017 SHIREEN AGARWAL Solange Ot D50.9 IRON DEFICIENCY ANEMIA, UNSPECIFIED 01/29/2017 SHIREEN AGARWAL Solange Ot E03.9 HYPOTHYROIDISM, UNSPECIFIED 01/29/2017 SHIREEN AGARWAL N Ot 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 01/29/2017 SHIREEN AGARWAL Solange Ot I12.9 HYPERTENSIVE CHRONIC KIDNEY DISEASE W ST 01/29/2017 SHIREEN AGARWAL Solange Ot 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 01/29/2017 ANY JJBLU Solange Ot I48.91 UNSPECIFIED ATRIAL FIBRILLATION 01/29/2017 SHIREEN AGARWAL Solange Ot N18.3 CHRONIC KIDNEY DISEASE, STAGE 3 (MODERAT 01/29/2017 SHIREEN AGARWAL Solange Ot Z79.899 OTHER HALFWAY (CURRENT) DRUG THERAPY 01/29/2017 KIERAN KHOURY, Wei BRANDON Ot I47 .1 SUPRAVENTRICULAR TACHYCARDIA 01/29/2017 Wei ALCARAZ MD Ot I48.91 UNSPECIFIED ATRIAL FIBRILLATION 01/29/2017 SABRINA ROSIS DO Ot D50. 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 9 ANEMIA, UNSPECIFIED 02/23/2017 SABRINA ROSSI DO Ot Z01.818 ENCOUNTER FOR OTHER PREPROCEDURAL EXAMIN 03/03/2017 ROSSI DO, SABRINA D Ot D64. 9 ANEMIA, UNSPECIFIED 03/03/2017 ROSSI DO, SABRINA D Ot E03. 9 HYPOTHYROIDISM, UNSPECIFIED 03/03/2017 ROSSI DO, SABRINA D Ot E11. 9 TYPE 2 DIABETES MELLITUS WITHOUT COMPLIC 03/03/2017 ROSSI DO, SABRINA D Ot K59. 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 03/09/2017 ANY, BOBAN N Ot I12.9 HYPERTENSIVE CHRONIC KIDNEY DISEASE W ST 03/09/2017 ANY, BOBAN N Ot 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 03/09/2017 ANY, BOBAN N Ot I48.91 UNSPECIFIED ATRIAL FIBRILLATION 03/09/2017 ANY, BOBAN N Ot N18.3 CHRONIC KIDNEY DISEASE, STAGE 3 (MODERAT 03/09/2017 ANY, BOBAN N Ot Z79.899 OTHER HALFWAY (CURRENT) DRUG THERAPY 03/10/2017 ANY, BOBAN N Ot D50.9 IRON DEFICIENCY ANEMIA, UNSPECIFIED 03/10/2017 ANY, BOBAN N Ot E03.9 HYPOTHYROIDISM, UNSPECIFIED 03/10/2017 ANY, BOBAN N Ot 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 9 ANEMIA, UNSPECIFIED 03/13/2017 ROSSI DO, SABRINA D Ot E03. 9 HYPOTHYROIDISM, UNSPECIFIED 03/13/2017 ROSSI DO, SABRINA D Ot E11. 9 TYPE 2 DIABETES MELLITUS WITHOUT COMPLIC 03/13/2017 SABRINA ROSSI DO D Ot K59. 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 80 DUODENITIS WITHOUT BLEEDING 04/06/2017 SABRINA ROSSI DO Ot Z01.818 ENCOUNTER FOR OTHER PREPROCEDURAL EXAMIN 04/06/2017 FLO DO SABRINA D Ot K29. 80 DUODENITIS WITHOUT BLEEDING 04/06/2017 SABRINA ROSSI DO D Ot Z01.818 ENCOUNTER FOR OTHER PREPROCEDURAL EXAMIN 04/08/2017 FLO DOLALOTT D Ot K29. 80 DUODENITIS WITHOUT BLEEDING 04/08/2017 SABRINA ROSSI DO Ot Z53. 9 PROCEDURE AND TREATMENT NOT CARRIED OUT, 04/23/2017 ROSSI DO SABRINA D Ot K29. 80 DUODENITIS WITHOUT BLEEDING 04/23/2017 ROSSI DOSABRINA Ot Z53. 9 PROCEDURE AND TREATMENT NOT CARRIED OUT, 04/23/2017 ROSSI DO SABRINA D Ot K29. 80 DUODENITIS WITHOUT BLEEDING 04/23/2017 ROSSISABRINA ALCOCER DO Ot Z53. 9 PROCEDURE AND TREATMENT NOT CARRIED OUT, 06/10/2017 BRIAN KHOURY, JAMES R Ot E03.9 HYPOTHYROIDISM, UNSPECIFIED 06/10/2017 BRIAN KHOURY, JAMES R Ot E11.9 TYPE 2 DIABETES [...] II OR UNSPEC TY 06/16/2017 CHICHI RIVAS PHARMACY INNOVATION ASSISTANT Ot 574.20 CHOLELITHIASIS NOS 06/16/2017 CHICHI RIVAS PHARMACY INNOVATION ASSISTANT Ot 789.1 HEPATOMEGALY 06/16/2017 LINDA KHOURY FACC, [...] IRON DEFIC ANEMIA NOS 06/16/2017 Ot 585.3 RELIGIOUS HEALER LEANDRO KIDNEY DISEASE, STAGE III (MODER 06/16/2017 Ot V58.69 OT MED,LT,CURRENT USE 06/16/2017 Ot 250.02 AWA Eduardo [...] Ot E03.9 HYPOTHYROIDISM, UNSPECIFIED 06/16/2017 OVI KHOURY, FLORIDALMAU Ot E11.9 TYPE 2 DIABETES MELLITUS WITHOUT COMPLIC 06/16/2017 OVI KHOURY, WU Ot E78.5 HYPERLIPIDEMIA, UNSPECIFIED 06/16/2017 OVI KHOURY, JAYCOBFRANKIE Ot I10 ESSENTIAL (PRIMARY) HYPERTENSION 06/16/2017 SHIREEN AGARWAL Ot D64.9 ANEMIA, UNSPECIFIED 06/16/2017 SHIREEN AGARWAL Ot E03.9 HYPOTHYROIDISM, UNSPECIFIED 06/16/2017 SHIREEN AGARWAL N Ot 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 06/16/2017 SHIREEN AGARWAL Ot I12.9 HYPERTENSIVE CHRONIC KIDNEY DISEASE W ST 06/16/2017 SHIREEN AGARWAL Ot 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 06/16/2017 SHIREEN AGARWAL Ot I48.91 UNSPECIFIED ATRIAL FIBRILLATION 06/16/2017 SHIREEN AGARWAL Ot N18.3 CHRONIC KIDNEY DISEASE, STAGE 3 (MODERAT 06/16/2017 SHIREEN AGARWAL Ot Z79.899 OTHER HALFWAY (CURRENT) DRUG THERAPY 06/16/2017 KIERAN KHOURY, BERNY Champion Ot 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 06/16/2017 BERNY ALCARAZ MD Ot 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 06/16/2017 KIERAN KHOURY, Wei BRANDON Ot I47 .1 SUPRAVENTRICULAR TACHYCARDIA 06/16/2017 KIERAN KHOURY, Wei BRANDON Ot I48.91 UNSPECIFIED ATRIAL FIBRILLATION 06/16/2017 SABRINA ROSSI DO Ot D50. 9 IRON DEFICIENCY ANEMIA, UNSPECIFIED 06/16/2017 ROSSI SABRINA WOOD Ot R19. 5 OTHER FECAL ABNORMALITIES 06/16/2017 SABRINA ROSSI DO Ot Z01.818 ENCOUNTER FOR OTHER PREPROCEDURAL EXAMIN 06/16/2017 SABRINA ROSSI DO Ot Z80. 0 FAMILY HISTORY OF MALIGNANT NEOPLASM OF 06/16/2017 SABRINA ROSSI DO Ot D64. 9 ANEMIA, UNSPECIFIED 06/16/2017 SABRINA ROSSI DO Ot E03. 9 HYPOTHYROIDISM, UNSPECIFIED 06/16/2017 SABRINA ROSSI DO Ot E11. 9 TYPE 2 DIABETES MELLITUS WITHOUT COMPLIC 06/16/2017 SABRINA ROSIS DO Ot K59. 09 OTHER CONSTIPATION 06/16/2017 SABRINA ROSSI DO Ot K29. 80 DUODENITIS WITHOUT BLEEDING 06/16/2017 SHIREEN AGARWAL Ot D64.9 ANEMIA, UNSPECIFIED 06/16/2017 JAMES TORRES MD Ot E03.9 HYPOTHYROIDISM, UNSPECIFIED 06/16/2017 BRIAN KHOURY, JAMES Champion Ot E11.9 TYPE 2 DIABETES MELLITUS WITHOUT COMPLIC 06/16/2017 BRIAN KHOURY, JAMES Champion Ot I10 ESSENTIAL (PRIMARY) HYPERTENSION 06/16/2017 SABRINA ROSSI DO Ot D64. 9 ANEMIA, UNSPECIFIED 06/16/2017 SABRINA ROSSI DO Ot K76. 89 OTHER SPECIFIED DISEASES OF LIVER 06/16/2017 SABRINA ROSSI DO Ot K82. 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 06/22/2017 SHIREEN AGARWAL Ot I12.9 HYPERTENSIVE CHRONIC KIDNEY DISEASE W ST 06/22/2017 SHIREEN AGARWAL Ot 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 06/22/2017 SHIREEN AGARWAL Ot I48.91 UNSPECIFIED ATRIAL FIBRILLATION 06/22/2017 SHIREEN AGARWAL Ot N18.3 CHRONIC KIDNEY DISEASE, STAGE 3 (MODERAT 06/22/2017 SHIREEN AGARWAL Ot Z79.899 OTHER HALFWAY (CURRENT) DRUG THERAPY 07/07/2017 SHIREEN AGARWAL N Ot D50.9 IRON DEFICIENCY ANEMIA, UNSPECIFIED 07/07/2017 SHIREEN AGARWAL N Ot E03.9 HYPOTHYROIDISM, UNSPECIFIED 07/07/2017 SHIREEN AGARWAL N Ot 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 07/07/2017 SHIREEN AGARWAL N Ot I12.9 HYPERTENSIVE CHRONIC KIDNEY DISEASE W ST 07/07/2017 SHIREEN AGARWAL N Ot 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 07/07/2017 SHIREEN AGARWAL N Ot I48.91 UNSPECIFIED ATRIAL FIBRILLATION 07/07/2017 SHIREEN AGARWAL N Ot N18.3 CHRONIC KIDNEY DISEASE, STAGE 3 (MODERAT 07/07/2017 SHIREEN AGARWAL N Ot Z79.899 OTHER HOSPITAL SECURITY OFFICER (CURRENT) DRUG THERAPY 07/07/2017 MELIZA KHOURY, BRANDEN Ot D50.9 IRON DEFICIENCY ANEMIA, UNSPECIFIED 07/07/2017 BRANDEN HAIDER MD Ot E03.9 HYPOTHYROIDISM, UNSPECIFIED 07/07/2017 MELIZA KHOURY, BRANDEN Ot 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 07/07/2017 MELIZA KHOURY, BRANDEN Ot I12.9 HYPERTENSIVE CHRONIC KIDNEY DISEASE W ST 07/07/2017 MELIZA KHOURY, BRANDEN Ot 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 07/07/2017 MELIZA KHOURY, BRANDEN Ot I48.91 UNSPECIFIED ATRIAL FIBRILLATION 07/07/2017 MELIZA KHOURY, BRANDEN Ot N18.3 CHRONIC KIDNEY DISEASE, STAGE 3 (MODERAT 07/07/2017 MELIZA KHOURY, BRANDEN Ot Z79.899 OTHER HALFWAY (CURRENT) DRUG THERAPY 07/10/2017 RACHELE JEFFERSON PHARMACY INNOVATION ASSISTANT Ot D64.89 OTHER SPECIFIED ANEMIAS 07/10/2017 RACHELE JEFFERSON PHARMACY INNOVATION ASSISTANT Ot R06.02 SHORTNESS OF BREATH 07/17/2017 GISSELL DODIVYAIC B Ot D12.0 BENIGN NEOPLASM OF CECUM 07/17/2017 GISSELL DO CARMINE B Ot D12.2 BENIGN NEOPLASM OF ASCENDING COLON 07/17/2017 GISSELL DO CARMINE B Ot D64.9 ANEMIA, UNSPECIFIED 07/17/2017 GISSELL WOOD CARMINE B Ot E11.4 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 07/17/2017 GISSELL WOOD CARMINE B Ot E66.0 1 MORBID (SEVERE) OBESITY DUE TO EXCESS CA 07/17/2017 GISSELL WOOD CARMINE B Ot I10 ESSENTIAL (PRIMARY) HYPERTENSION 07/17/2017 DIVYA BORRERO DOIC B Ot I48.9 1 UNSPECIFIED ATRIAL FIBRILLATION 07/17/2017 DIVYA BORRERO DOIC B Ot K29.5 0 UNSPECIFIED CHRONIC GASTRITIS WITHOUT BL 07/17/2017 DIVYA BORRERO DOIC B Ot K29.7 0 GASTRITIS, UNSPECIFIED, WITHOUT BLEEDING 07/17/2017 DIVYA BORRERO DOIC B Ot K31.7 POLYP OF STOMACH AND DUODENUM 07/17/2017 DIVYA BORRERO DOIC B Ot K57.3 0 [...] ADULT 07/17/2017 DIVYA BORRERO DOIC B Ot Z79.8 99 OTHER HOSPITAL SECURITY OFFICER (CURRENT) DRUG THERAPY 07/24/2017 DIVYA BORRERO DOIC [...] Ot I48.9 1 UNSPECIFIED ATRIAL FIBRILLATION 07/24/2017 DIVYA BORRERO DOIC B Ot K29.5 0 UNSPECIFIED CHRONIC GASTRITIS WITHOUT BL 07/24/2017 DIVYA BORRERO DOIC B Ot K31.7 POLYP OF STOMACH AND DUODENUM 07/24/2017 DELMAN DO, CARMINE B Ot K57.3 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 07/24/2017 GISSELL WOOD, CARMINE B Ot K64.8 OTHER HEMORRHOIDS 07/24/2017 GISSELL DO, CARMINE B Ot 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 07/24/2017 GISSELL WOOD, CARMINE B Ot Z68.4 2 BODY MASS INDEX (BMI) 45.0-49.9, ADULT 07/24/2017 GISSELL WOOD CARMINE B Ot Z79.8 99 OTHER HALFWAY (CURRENT) DRUG THERAPY 07/24/2017 GISSELL DO, CARMINE B Ot D12.0 BENIGN NEOPLASM OF CECUM 07/24/2017 GISSELL WOOD, CARMINE B Ot D12.2 BENIGN NEOPLASM OF ASCENDING COLON 07/24/2017 GISSELL DO, CARMINE B Ot D64.9 ANEMIA, UNSPECIFIED 07/24/2017 GISSELL WOOD, CARMINE B Ot E11.4 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 07/24/2017 LUIZARIANA WOOD, CARMINE B Ot E66.0 1 MORBID (SEVERE) OBESITY DUE TO EXCESS CA 07/24/2017 GISSELL DO, CARMINE B Ot I10 ESSENTIAL (PRIMARY) HYPERTENSION 07/24/2017 LUIZARIANA WOOD, CARMINE B Ot I48.9 1 UNSPECIFIED ATRIAL FIBRILLATION 07/24/2017 LUIZARIANA WOOD, CARMINE B Ot K29.5 0 UNSPECIFIED CHRONIC GASTRITIS WITHOUT BL 07/24/2017 LUIZARIANA WOOD, CARMINE B Ot K31.7 POLYP OF STOMACH AND DUODENUM 07/24/2017 LUIZARIANA WOOD CARMINE B Ot K57.3 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 07/24/2017 GISSELL DO, CARMINE B Ot K64.8 OTHER HEMORRHOIDS 07/24/2017 GISSELL DO, CARMINE B Ot 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 07/24/2017 LUIZARIANA DO CARMINE B Ot Z68.4 2 BODY MASS INDEX (BMI) 45.0-49.9, ADULT 07/24/2017 LUIZARIANA DO CARMINE B Ot Z79.8 99 OTHER HOSPITAL SECURITY OFFICER (CURRENT) DRUG THERAPY 07/28/2017 BRANDEN HAIDER MD Ot D50.9 IRON DEFICIENCY ANEMIA, UNSPECIFIED 07/28/2017 BRANDEN HAIDER MD Ot E03.9 HYPOTHYROIDISM, UNSPECIFIED 07/28/2017 MELIZA KHOURY, BRANDEN Ot 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 07/28/2017 MELIZA KHOURY, BRANDEN Ot I12.9 HYPERTENSIVE CHRONIC KIDNEY DISEASE W ST 07/28/2017 MELIZA KHOURY, BRANDEN Ot 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 07/28/2017 MELIZA KHOURY, BRANDEN Ot I48.91 UNSPECIFIED ATRIAL FIBRILLATION 07/28/2017 MELIZA KHOURY, BRANDEN Ot N18.3 CHRONIC KIDNEY DISEASE, STAGE 3 (MODERAT 07/28/2017 MELIZA KHOURY, BRANDEN Ot Z79.899 OTHER HALFWAY (CURRENT) DRUG THERAPY 07/29/2017 ANY, BOBAN N Ot D50.9 IRON DEFICIENCY ANEMIA, UNSPECIFIED 07/29/2017 ANY, BOBAN N Ot E03.9 HYPOTHYROIDISM, UNSPECIFIED 07/29/2017 ANY, BOBAN N Ot 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 07/29/2017 ANY BOBAN N Ot I12.9 HYPERTENSIVE CHRONIC KIDNEY DISEASE W ST 07/29/2017 ANY, BOBAN N Ot 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 07/29/2017 ANY, BOBAN N Ot I48.91 UNSPECIFIED ATRIAL FIBRILLATION 07/29/2017 ANY, BOBAN N Ot N18.3 CHRONIC KIDNEY DISEASE, STAGE 3 (MODERAT 07/29/2017 ANY, BOBAN N Ot Z79.899 OTHER HOSPITAL SECURITY OFFICER (CURRENT) DRUG THERAPY 08/11/2017 DELMAN DO, CARMINE B Ot D12.0 BENIGN NEOPLASM OF CECUM 08/11/2017 DELARIANA DO, CARMINE B Ot D12.2 BENIGN NEOPLASM OF ASCENDING COLON 08/11/2017 DELMAN DO, CARMINE B Ot D64.9 ANEMIA, UNSPECIFIED 08/11/2017 DELMAN DO, CARMINE B Ot E11.4 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 08/11/2017 LUIZMAN DO, CARMINE B Ot E66.0 1 MORBID (SEVERE) OBESITY DUE TO EXCESS CA 08/11/2017 DELMAN DO, CARMINE B Ot I10 ESSENTIAL (PRIMARY) HYPERTENSION 08/11/2017 DELMAN DO, CARMINE B Ot I48.9 1 UNSPECIFIED ATRIAL FIBRILLATION 08/11/2017 GISSELL DO, CARMINE B Ot K29.5 0 UNSPECIFIED CHRONIC GASTRITIS WITHOUT BL 08/11/2017 DIVYA BORRERO DOIC B Ot K31.7 POLYP OF STOMACH AND DUODENUM 08/11/2017 DIVYA BORRERO DOIC B Ot K57.3 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 08/11/2017 GISSELL WOOD CARMINE B Ot K64.8 OTHER HEMORRHOIDS 08/11/2017 GISSELL WOOD CARMINE B Ot 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 08/11/2017 DIVYA BORRERO DOIC B Ot Z68.4 2 BODY MASS INDEX (BMI) 45.0-49.9, ADULT 08/11/2017 DIVYA BORRERO DOIC B Ot Z79.8 99 OTHER HOSPITAL SECURITY OFFICER (CURRENT) DRUG THERAPY 09/02/2017 SHIREEN AGARWAL N Ot D50.9 IRON DEFICIENCY ANEMIA, UNSPECIFIED 09/02/2017 SHIREEN AGARWAL N Ot E03.9 HYPOTHYROIDISM, UNSPECIFIED 09/02/2017 SHIREEN AAGRWAL N Ot 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 09/02/2017 SHIREEN AGARWAL N Ot I12.9 HYPERTENSIVE CHRONIC KIDNEY DISEASE W ST 09/02/2017 JJ AGARWALAN N Ot 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 09/02/2017 SHIREEN AGARWAL N Ot I48.91 UNSPECIFIED ATRIAL FIBRILLATION 09/02/2017 SHIREEN AGARWAL N Ot N18.3 CHRONIC KIDNEY DISEASE, STAGE 3 (MODERAT 09/02/2017 JJ AGARWALAN N Ot Z79.899 OTHER HALFWAY (CURRENT) DRUG THERAPY 09/02/2017 Ot 250.00 AWA B NALLELY WO COMPL, TYPE II OR UNSPEC TY 09/02/2017 CHICHI RIVAS PHARMACY INNOVATION ASSISTANT Ot 574.20 CHOLELITHIASIS NOS 09/02/2017 CHICHI RIVAS PHARMACY INNOVATION ASSISTANT Ot 789.1 HEPATOMEGALY 09/02/2017 LINDA KHOURY FACC, ARNIE FACP CCDS Ot 401.9 HYPERTENSION NOS 09/02/2017 LINDA KHOURY FACC, ALI FACP CCDS Ot 414.00 CORON ATHEROSCLER NOS TYPE VESSEL, NATIV 09/02/2017 LINDA KHOURY FACC, ALI FACP CCDS Ot 427.31 ATRIAL FIBRILLATION 09/02/2017 TY KHOURY, TONIE Diaz Ot V72. 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 09/02/2017 SHIREEN AGARWAL Ot I12.9 HYPERTENSIVE CHRONIC KIDNEY DISEASE W ST 09/02/2017 SHIREEN AGARWAL Solange Ot 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 09/02/2017 SHIREEN AGARWAL Solange Ot I48.91 UNSPECIFIED ATRIAL FIBRILLATION 09/02/2017 SHIREEN AGARWAL Solange Ot N18.3 CHRONIC KIDNEY DISEASE, STAGE 3 (MODERAT 09/02/2017 SHIREEN AGARWAL Solange Ot Z79.899 OTHER HALFWAY (CURRENT) DRUG THERAPY 09/02/2017 BERNY ALCARAZ MD Ot 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 09/02/2017 BERNY ALCARAZ MD Ot 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 09/02/2017 KIERAN KHOURY, Wei BRANDON Ot [...] Ot K82. 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 09/02/2017 ANYSHIREEN N Ot I12.9 HYPERTENSIVE CHRONIC KIDNEY DISEASE W ST 09/02/2017 ANYSHIREEN N Ot 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 09/02/2017 ANYSHIREEN N Ot I48.91 UNSPECIFIED ATRIAL FIBRILLATION 09/02/2017 ANYSHIREEN N Ot N18.3 CHRONIC KIDNEY DISEASE, STAGE 3 (MODERAT 09/02/2017 ANYSHIREEN N Ot Z79.899 OTHER HALFWAY (CURRENT) DRUG THERAPY 09/13/2017 JAMES TORRES MD Ot D50.9 IRON DEFICIENCY ANEMIA, UNSPECIFIED 09/13/2017 JAMES TORRES MD Ot E03.9 HYPOTHYROIDISM, UNSPECIFIED 09/13/2017 JAMES TORRES MD Ot E11.9 TYPE 2 DIABETES MELLITUS WITHOUT COMPLIC 09/13/2017 JAMES TORRES MD Ot E78.5 HYPERLIPIDEMIA, UNSPECIFIED 09/13/2017 JAMES TORRES MD Ot I10 ESSENTIAL (PRIMARY) HYPERTENSION 09/13/2017 JAMES TORRES MD Ot I25.1 0 ATHSCL HEART DISEASE OF [place] CORONARY 09/13/2017 JAMES TORRES MD Ot I48.9 1 UNSPECIFIED ATRIAL FIBRILLATION 09/13/2017 JAMES TORRES MD Ot L40.9 PSORIASIS, UNSPECIFIED 09/13/2017 JAMES TORRES MD Ot R07.8 9 OTHER CHEST PAIN 09/13/2017 JAMES TORRES MD Ot R51 HEADACHE 09/13/2017 JAMES TORRES MD Ot R60.0 LOCALIZED EDEMA 09/13/2017 JAMES TORRES MD Ot Z79.8 99 OTHER HALFWAY (CURRENT) DRUG THERAPY 09/13/2017 JAMES TORRES MD [...] Ot I25.1 0 ATHSCL HEART DISEASE OF [place] CORONARY 09/13/2017 JAMES TORRES MD Ot I48.9 1 UNSPECIFIED ATRIAL FIBRILLATION 09/13/2017 JAMES TORRES MD Ot L40.9 PSORIASIS, UNSPECIFIED 09/13/2017 JAMES TORRES MD Ot R07.8 9 OTHER CHEST PAIN 09/13/2017 JAMES TORRES MD Ot R51 HEADACHE 09/13/2017 JAMES TORRES MD Ot R60.0 LOCALIZED EDEMA 09/13/2017 JAMES TORRES MD Ot Z79.8 99 OTHER HALFWAY (CURRENT) DRUG THERAPY 09/13/2017 JAMES TORRES MD [...] ADULT 10/05/2017 TOMASA CARMONA MD, Ot Z79.84 HALFWAY (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 OF ORAL HYPOGLYC 10/05/2017 TOMASA CARMONA MD, Ot Z79.899 OTHER HALFWAY (CURRENT) DRUG THERAPY 10/05/2017 TOMASA CARMONA MD, [...] ADULT 10/05/2017 TOMASA CARMONA MD, Ot Z79.84 HALFWAY (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 OF ORAL HYPOGLYC 10/05/2017 TOMASA CARMONA MD, Ot Z79.899 OTHER HOSPITAL SECURITY OFFICER (CURRENT) DRUG THERAPY 10/05/2017 TOMASA CARMONA MD, Ot Z87.8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 10/05/2017 TOMASA CARMONA MD, Ot Z88 .1 ALLERGY STATUS TO OTHER ANTIBIOTIC AGENT 10/05/2017 TOMASA CARMONA MD Ot Z95 .5 PRESENCE OF CORONARY ANGIOPLASTY IMPLANT 10/05/2017 CHICHI RIVAS PHARMACY INNOVATION ASSISTANT Ot 574.20 CHOLELITHIASIS NOS 10/05/2017 CHICHI RIVASP Ot 789.1 HEPATOMEGALY 10/05/2017 LINDA KHOURY FACC, ARNIE FACP CCDS Ot [...] IRON DEFIC ANEMIA NOS 10/05/2017 Ot 585.3 RELIGIOUS HEALER LEANDRO KIDNEY DISEASE, STAGE III (MODER 10/05/2017 Ot V58.69 OTH MED,LT,CURRENT USE 10/05/2017 Ot 250.02 AWA B NALLELY WO COMPL, [...] TYPE 2 DIABETES MELLITUS WITHOUT COMPLIC 10/05/2017 OIV KHOURY, TORI-FRANKIE Ot E78.5 HYPERLIPIDEMIA, UNSPECIFIED 10/05/2017 OVI KHOURY, TORI-FRANKIE Ot I10 ESSENTIAL (PRIMARY) HYPERTENSION 10/05/2017 SHIREEN AGARWAL Ot D64.9 ANEMIA, UNSPECIFIED 10/05/2017 SHIREEN AGARWAL Ot E03.9 HYPOTHYROIDISM, UNSPECIFIED 10/05/2017 SHIREEN AGARWAL Ot 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 10/05/2017 SHIREEN AGARWAL Solange Ot I12.9 HYPERTENSIVE CHRONIC KIDNEY DISEASE W ST 10/05/2017 SHIREEN AGARWAL Solange Ot 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 10/05/2017 SHIREEN AGARWAL Solange Ot I48.91 UNSPECIFIED ATRIAL FIBRILLATION 10/05/2017 SHIREEN AGARWAL Solange Ot N18.3 CHRONIC KIDNEY DISEASE, STAGE 3 (MODERAT 10/05/2017 SHIREEN AGARWAL Solange Ot Z79.899 OTHER HALFWAY (CURRENT) DRUG THERAPY 10/05/2017 KIERAN KHOURY, BERNY Champion Ot 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 10/05/2017 BERNY ALCARAZ MD Ot 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 10/05/2017 KIERAN KHOURY, Wei BRANDON Ot [...] 09 OTHER CONSTIPATION 10/05/2017 SABRINA ROSSI DO D Ot K29. 80 DUODENITIS WITHOUT BLEEDING 10/05/2017 JAMES TORRES MD Ot E03.9 HYPOTHYROIDISM, UNSPECIFIED 10/05/2017 JAMES TORRES MD Ot E11.9 TYPE 2 DIABETES MELLITUS WITHOUT COMPLIC 10/05/2017 JAMES TORRES MD Ot I10 ESSENTIAL (PRIMARY) HYPERTENSION 10/05/2017 SABRINA ROSSI DO Ot D64. 9 ANEMIA, UNSPECIFIED 10/05/2017 FLO WOOD SABRINA D Ot K76. 89 OTHER SPECIFIED DISEASES OF LIVER 10/05/2017 FLO WOOD SABRINA Diaz Ot K82. 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 10/05/2017 ANY, BOBAN N Ot I12.9 HYPERTENSIVE CHRONIC KIDNEY DISEASE W ST 10/05/2017 ANY, BOBAN N Ot 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 10/05/2017 ANY, BOBAN N Ot I48.91 UNSPECIFIED ATRIAL FIBRILLATION 10/05/2017 ANY, BOBAN N Ot N18.3 CHRONIC KIDNEY DISEASE, STAGE 3 (MODERAT 10/05/2017 ANY, BOBAN N Ot Z79.899 OTHER HOSPITAL SECURITY OFFICER (CURRENT) DRUG THERAPY 10/26/2017 ANY, BOBAN N Ot D50.9 IRON DEFICIENCY ANEMIA, UNSPECIFIED 10/26/2017 ANY, BOBAN N Ot E03.9 HYPOTHYROIDISM, UNSPECIFIED 10/26/2017 ANY, BOBAN N Ot 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 10/26/2017 ANY, BOBAN N Ot I12.9 HYPERTENSIVE CHRONIC KIDNEY DISEASE W ST 10/26/2017 ANY, BOBAN N Ot 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 10/26/2017 ANY, BOBAN N Ot I48.91 UNSPECIFIED ATRIAL FIBRILLATION 10/26/2017 ANY, BOBAN N Ot N18.3 CHRONIC KIDNEY DISEASE, STAGE 3 (MODERAT 10/26/2017 ANY, BOBAN N Ot Z79.899 OTHER HALFWAY (CURRENT) DRUG THERAPY 10/27/2017 ANY, BOBAN N Ot D50.9 IRON DEFICIENCY ANEMIA, UNSPECIFIED 10/27/2017 ANY, BOBAN N Ot E03.9 HYPOTHYROIDISM, UNSPECIFIED 10/27/2017 ANY, BOBAN N Ot 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 10/27/2017 ANY, BOBAN N Ot I12.9 HYPERTENSIVE CHRONIC KIDNEY DISEASE W ST 10/27/2017 ANY, BOBAN N Ot 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 10/27/2017 ANY, BOBAN N Ot I48.91 UNSPECIFIED ATRIAL FIBRILLATION 10/27/2017 ANY, BOBAN N Ot N18.3 CHRONIC KIDNEY DISEASE, STAGE 3 (MODERAT 10/27/2017 ANY, BOBAN N Ot Z79.899 OTHER HALFWAY (CURRENT) DRUG THERAPY 10/28/2017 ANY, BOBAN N Ot D50.9 IRON DEFICIENCY ANEMIA, UNSPECIFIED 10/28/2017 ANY, BOBAN N Ot E03.9 HYPOTHYROIDISM, UNSPECIFIED 10/28/2017 ANY, BOBAN N Ot 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 10/28/2017 ANY, BOBAN N Ot I12.9 HYPERTENSIVE CHRONIC KIDNEY DISEASE W ST 10/28/2017 ANY, BOBAN N Ot 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 10/28/2017 ANY, BOBAN N Ot I48.91 UNSPECIFIED ATRIAL FIBRILLATION 10/28/2017 ANY, BOBAN N Ot N18.3 CHRONIC KIDNEY DISEASE, STAGE 3 (MODERAT 10/28/2017 ANY, BOBAN N Ot Z79.899 OTHER HALFWAY (CURRENT) DRUG THERAPY 10/28/2017 ANY, BOBAN N Ot D50.9 IRON DEFICIENCY ANEMIA, UNSPECIFIED 10/28/2017 ANY, BOBAN N Ot E03.9 HYPOTHYROIDISM, UNSPECIFIED 10/28/2017 ANY, BOBAN N Ot 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 10/28/2017 ANY, BOBAN N Ot I12.9 HYPERTENSIVE CHRONIC KIDNEY DISEASE W ST 10/28/2017 ANY, BOBAN N Ot 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 10/28/2017 ANY, BOBAN N Ot I48.91 UNSPECIFIED ATRIAL FIBRILLATION 10/28/2017 ANY, BOBAN N Ot N18.3 CHRONIC KIDNEY DISEASE, STAGE 3 (MODERAT 10/28/2017 ANY, BOBAN N Ot Z79.899 OTHER HOSPITAL SECURITY OFFICER (CURRENT) DRUG THERAPY 10/28/2017 ANY, BOBAN N Ot D50.9 IRON DEFICIENCY ANEMIA, UNSPECIFIED 10/28/2017 ANY, BOBAN N Ot E03.9 HYPOTHYROIDISM, UNSPECIFIED 10/28/2017 ANY, BOBAN N Ot 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 10/28/2017 ANY, BOBAN N Ot I12.9 HYPERTENSIVE CHRONIC KIDNEY DISEASE W ST 10/28/2017 ANY, BOBAN N Ot 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 10/28/2017 ANY, BOBAN N Ot I48.91 UNSPECIFIED ATRIAL FIBRILLATION 10/28/2017 ANY, BOBAN N Ot N18.3 CHRONIC KIDNEY DISEASE, STAGE 3 (MODERAT 10/28/2017 ANY, BOBAN N Ot Z79.899 OTHER HALFWAY (CURRENT) DRUG THERAPY 11/06/2017 KIERAN KHOURY, Wei BRANDON Ot I47 .1 SUPRAVENTRICULAR TACHYCARDIA 11/06/2017 KIERAN KHOURY, Wei BRANDON Ot I48.91 UNSPECIFIED ATRIAL FIBRILLATION 11/06/2017 ANY, BOBAN N Ot D50.9 IRON DEFICIENCY ANEMIA, UNSPECIFIED 11/06/2017 ANY, BOBAN N Ot E03.9 HYPOTHYROIDISM, UNSPECIFIED 11/06/2017 ANY, BOBAN N Ot 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 11/06/2017 ANY, BOBAN N Ot I12.9 HYPERTENSIVE CHRONIC KIDNEY DISEASE W ST 11/06/2017 ANY, BOBAN N Ot 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 11/06/2017 ANY, BOBAN N Ot I48.91 UNSPECIFIED ATRIAL FIBRILLATION 11/06/2017 ANY, BOBAN N Ot N18.3 CHRONIC KIDNEY DISEASE, STAGE 3 (MODERAT 11/06/2017 ANY, BOBAN N Ot Z79.899 OTHER HOSPITAL SECURITY OFFICER (CURRENT) DRUG THERAPY 11/07/2017 TOMASA CARMONA MD Ot D50 .9 IRON DEFICIENCY ANEMIA, UNSPECIFIED 11/07/2017 TOMASA CARMONA MD Ot E11 .9 TYPE 2 DIABETES MELLITUS WITHOUT COMPLIC 11/07/2017 TOMASA CARMONA MD Ot I11 .0 HYPERTENSIVE HEART DISEASE WITH HEART FA 11/07/2017 TOMASA CARMONA MD Ot 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 11/07/2017 TOMASA CARMONA MD Ot I25 .2 OLD MYOCARDIAL INFARCTION 11/07/2017 TOMASA CARMONA MD Ot I48.91 UNSPECIFIED ATRIAL FIBRILLATION 11/07/2017 TOMASA CARMONA MD Ot I50 .9 HEART FAILURE, UNSPECIFIED 11/07/2017 TOMASA CARMONA MD Ot K21 .9 GASTRO-ESOPHAGEAL REFLUX DISEASE WITHOUT 11/07/2017 TOMASA CARMONA MD Ot N19 UNSPECIFIED KIDNEY FAILURE 11/07/2017 TOMASA CARMONA MD Ot Z79.84 HOSPITAL SECURITY OFFICER (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 OF ORAL HYPOGLYC 11/07/2017 TOMASA CARMONA MD Ot Z79.899 OTHER HOSPITAL SECURITY OFFICER (CURRENT) DRUG THERAPY 11/07/2017 TOMASA CARMONA MD Ot Z87.8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 11/10/2017 TOMASA CARMONA MD Ot D50 .9 IRON DEFICIENCY ANEMIA, UNSPECIFIED 11/10/2017 TOMASA CARMONA MD Ot E11 .9 TYPE 2 DIABETES MELLITUS WITHOUT COMPLIC 11/10/2017 TOMASA CARMONA MD Ot I11 .0 HYPERTENSIVE HEART DISEASE WITH HEART FA 11/10/2017 TOMASA CARMONA MD Ot 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 11/10/2017 TOMASA CARMONA MD Ot I25 .2 OLD MYOCARDIAL INFARCTION 11/10/2017 TOMASA CARMONA MD Ot I48.91 UNSPECIFIED ATRIAL FIBRILLATION 11/10/2017 TOMASA CARMONA MD Ot I50 .9 HEART FAILURE, UNSPECIFIED 11/10/2017 TOMASA CARMONA MD Ot K21 .9 GASTRO-ESOPHAGEAL REFLUX DISEASE WITHOUT 11/10/2017 TOMASA CARMONA MD Ot N19 UNSPECIFIED KIDNEY FAILURE 11/10/2017 TOMASA CARMONA MD Ot Z79.84 HALFWAY (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 OF ORAL HYPOGLYC 11/10/2017 TOMASA CARMONA MD Ot Z79.899 OTHER HALFWAY (CURRENT) DRUG THERAPY 11/10/2017 TOMASA CARMONA MD Ot Z87.8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 11/12/2017 TOMASA CARMONA MD Ot D50 .9 IRON DEFICIENCY ANEMIA, UNSPECIFIED 11/12/2017 TOMASA CARMONA MD Ot E11 .9 TYPE 2 DIABETES MELLITUS WITHOUT COMPLIC 11/12/2017 TOMASA CARMONA MD Ot I11 .0 HYPERTENSIVE HEART DISEASE WITH HEART FA 11/12/2017 TOMASA CARMONA MD Ot 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 11/12/2017 TOMASA CARMONA MD, Ot I25 .2 OLD MYOCARDIAL INFARCTION 11/12/2017 TOMASA CARMONA MD, Ot I48.91 UNSPECIFIED ATRIAL FIBRILLATION 11/12/2017 TOMASA CARMONA MD Ot I50 .9 HEART FAILURE, UNSPECIFIED 11/12/2017 TOMASA CARMONA MD Ot K21 .9 GASTRO-ESOPHAGEAL REFLUX DISEASE WITHOUT 11/12/2017 TOMASA CARMONA MD, Ot N19 UNSPECIFIED KIDNEY FAILURE 11/12/2017 TOMASA CARMONA MD Ot Z79.84 HALFWAY (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 OF ORAL HYPOGLYC 11/12/2017 TOMASA CARMONA MD Ot Z79.899 OTHER HOSPITAL SECURITY OFFICER (CURRENT) DRUG THERAPY 11/12/2017 TOMASA CARMONA MD Ot Z87.8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 11/12/2017 KIERAN KHOURY, M ROMA Ot R06.02 SHORTNESS OF BREATH 11/18/2017 KELLY KHOURY, TUBRodrigo Ot D50 .9 IRON DEFICIENCY ANEMIA, UNSPECIFIED 11/18/2017 KELLY KHOURY TUBA Ot R11 .2 NAUSEA WITH VOMITING, UNSPECIFIED 11/24/2017 SHIREEN GAARWAL Ot D50.9 IRON DEFICIENCY ANEMIA, UNSPECIFIED 11/24/2017 SHIREEN AGARWAL Ot E03.9 HYPOTHYROIDISM, UNSPECIFIED 11/24/2017 SHIREEN AGARWAL Ot 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 11/24/2017 SHIREEN AGARWAL Ot I12.9 HYPERTENSIVE CHRONIC KIDNEY DISEASE W ST 11/24/2017 SHIREEN AGARWAL Ot 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 11/24/2017 SHIREEN AGARWAL Ot I48.91 UNSPECIFIED ATRIAL FIBRILLATION 11/24/2017 SHIREEN AGARWAL Ot N18.3 CHRONIC KIDNEY DISEASE, STAGE 3 (MODERAT 11/24/2017 SHIREEN AGARWAL Ot Z79.899 OTHER HOSPITAL SECURITY OFFICER (CURRENT) DRUG THERAPY 11/30/2017 KELLY KHOURY, TUBA [...] 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 01/25/2018 ANY, BOBAN N Ot I12.9 HYPERTENSIVE CHRONIC KIDNEY DISEASE W ST 01/25/2018 ANY, BOBAN N Ot 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 01/25/2018 ANY, BOBAN N Ot I48.91 UNSPECIFIED ATRIAL FIBRILLATION 01/25/2018 ANY, BOBAN N Ot N18.3 CHRONIC KIDNEY DISEASE, STAGE 3 (MODERAT 01/25/2018 ANY, BOBAN N Ot Z79.899 OTHER HOSPITAL SECURITY OFFICER (CURRENT) DRUG THERAPY 02/04/2018 ANY, BOBAN N Ot D50.9 IRON DEFICIENCY ANEMIA, UNSPECIFIED 02/04/2018 ANY, BOBAN N Ot E03.9 HYPOTHYROIDISM, UNSPECIFIED 02/04/2018 AYN, BOBAN N Ot 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 02/04/2018 ANY, BOBAN N Ot I12.9 HYPERTENSIVE CHRONIC KIDNEY DISEASE W ST 02/04/2018 ANY, BOBAN N Ot 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 02/04/2018 ANY, BOBAN N Ot I48.91 UNSPECIFIED ATRIAL FIBRILLATION 02/04/2018 ANY, BOBAN N Ot N18.3 CHRONIC KIDNEY DISEASE, STAGE 3 (MODERAT 02/04/2018 ANY, BOBAN N Ot Z79.899 OTHER HOSPITAL SECURITY OFFICER (CURRENT) DRUG THERAPY 02/12/2018 BRIAN KHOURY, JAMES R Ot D50.0 IRON DEFICIENCY ANEMIA SECONDARY TO BLOO 02/12/2018 BRIAN KHOURY, JAMES R Ot E03.9 HYPOTHYROIDISM, UNSPECIFIED 02/12/2018 JAMES TORRES MD, Ot E11.6 5 TYPE 2 DIABETES MELLITUS [...] Ot I25.1 10 ATHSCL HEART DISEASE OF [place] COR ART W 02/12/2018 JAMES TORRES MD, [...] 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 03/02/2018 SHIREEN AGARWAL Ot I12.9 HYPERTENSIVE CHRONIC KIDNEY DISEASE W ST 03/02/2018 SHIREEN AGARWAL Ot 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 03/02/2018 SHIREEN AGARWAL Ot I48.91 UNSPECIFIED ATRIAL FIBRILLATION 03/02/2018 SHIREEN AGARWAL Ot N18.3 CHRONIC KIDNEY DISEASE, STAGE 3 (MODERAT 03/02/2018 SHIREEN AGARWAL Solange Ot Z79.899 OTHER HALFWAY (CURRENT) DRUG THERAPY 03/02/2018 MELIZA KHOURY, BRANDEN Ot D50.9 IRON DEFICIENCY ANEMIA, UNSPECIFIED 03/02/2018 BRANDEN HAIDER MD Ot E03.9 HYPOTHYROIDISM, UNSPECIFIED 03/02/2018 MELIZA KHOURY, BRANDEN Ot 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 03/02/2018 BRANDEN HAIDER MD Ot I12.9 HYPERTENSIVE CHRONIC KIDNEY DISEASE W ST 03/02/2018 BRANDEN HAIDER MD Ot 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 03/02/2018 BRANDEN HAIDER MD Ot I48.91 UNSPECIFIED ATRIAL FIBRILLATION 03/02/2018 BRANDEN HAIDER MD Ot N18.3 CHRONIC KIDNEY DISEASE, STAGE 3 (MODERAT 03/02/2018 BRANDEN HAIDER MD Ot Z79.899 OTHER HALFWAY (CURRENT) DRUG THERAPY 03/03/2018 Ot 401.9 HYPE RTENSION NOS 03/03/2018 Ot 272.4 HYPE RLIPIDEMIA NEC/NOS 03/03/2018 Ot 250.00 AWA B NALLELY WO COMPL, TYPE II OR UNSPEC TY 03/03/2018 CHICHI RIVAS PHARMACY INNOVATION ASSISTANT Ot 574.20 CHOLELITHIASIS NOS 03/03/2018 CHICHI RIVAS PHARMACY INNOVATION ASSISTANT Ot 789.1 HEPATOMEGALY 03/03/2018 LINDA KHOURY FACC, ARNIE FACP CCDS Ot 401.9 HYPERTENSION NOS 03/03/2018 LINDA KHOURY FACC, ALI FACP CCDS Ot 414.00 CORON ATHEROSCLER NOS TYPE VESSEL, NATIV 03/03/2018 LINDA KHOURY FACC, ALI FACP CCDS Ot 427.31 ATRIAL FIBRILLATION 03/03/2018 TY KHOURY, TONIE Diaz Ot V72. 84 EXAM PRE-OPERATIVE NOS 03/03/2018 LINDA KHOURY FACC, ALI FACP CCDS Ot 250.00 DIAB NALLEYL WO COMPL, TYPE II OR UNSPEC TY 03/03/2018 LINDA KHOURY FACC, ALI FACP CCDS Ot 401.9 HYPERTENSION NOS 03/03/2018 LINDA KHOURY FACC, ALI FACP CCDS Ot 427.0 PAROX ATRIAL TACHYCARDIA 03/03/2018 LINDA KHOURY FAC, ARNIE SHAW CCDS Ot 785.1 PALPITATIONS 03/03/2018 Ot 244.9 HYPO THYROIDISM NOS 03/03/2018 Ot 280.9 IRON DEFIC ANEMIA NOS 03/03/2018 Ot 585.3 RELIGIOUS HEALER LEANDRO KIDNEY DISEASE, STAGE III (MODER 03/03/2018 Ot V58.69 OTH MED,LT,CURRENT USE 03/03/2018 Ot 250.02 AWA B NALLELY WO COMPL, [...] 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 03/03/2018 SHIREEN AGARWAL Ot I12.9 HYPERTENSIVE CHRONIC KIDNEY DISEASE W ST 03/03/2018 SHIREEN AGARWAL Ot 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 03/03/2018 SHIREEN AGARWAL Ot I48.91 UNSPECIFIED ATRIAL FIBRILLATION 03/03/2018 SHIREEN AGARWAL Ot N18.3 CHRONIC KIDNEY DISEASE, STAGE 3 (MODERAT 03/03/2018 SHIREEN AGARWAL Ot Z79.899 OTHER HOSPITAL SECURITY OFFICER (CURRENT) DRUG THERAPY 03/03/2018 BERNY ALCARAZ MD Ot 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 03/03/2018 BERNY ALCARAZ MD Ot 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 03/03/2018 KIERAN KHOURY, Wei BRANDON Ot I47 .1 SUPRAVENTRICULAR TACHYCARDIA 03/03/2018 KIERAN KHOURY, Wei BRANDON Ot I48.91 UNSPECIFIED ATRIAL FIBRILLATION 03/03/2018 LALO ROSSI DOTT D Ot D50. 9 IRON DEFICIENCY ANEMIA, UNSPECIFIED 03/03/2018 FLO WOOD SABRINA D Ot R19. 5 OTHER FECAL ABNORMALITIES 03/03/2018 SABRINA ROSSI DO D Ot Z01.818 ENCOUNTER FOR OTHER PREPROCEDURAL EXAMIN 03/03/2018 SABRINA ROSSI DO D Ot Z80. 0 FAMILY HISTORY OF MALIGNANT NEOPLASM OF 03/03/2018 SABRINA ROSSI DO Ot D64. 9 ANEMIA, UNSPECIFIED 03/03/2018 SABRINA ROSSI DO D Ot E03. 9 HYPOTHYROIDISM, UNSPECIFIED 03/03/2018 FLO WOOD SABRINA D Ot E11. 9 TYPE 2 DIABETES MELLITUS WITHOUT COMPLIC 03/03/2018 SABRINA ROSSI DO D Ot K59. 09 OTHER CONSTIPATION 03/03/2018 [...] 89 OTHER SPECIFIED DISEASES OF LIVER 03/03/2018 SABRINA ROSSI DO D Ot K82. 1 HYDROPS OF GALLBLADDER 03/03/2018 RACHELE JEFFERSONP Ot D64.89 OTHER SPECIFIED ANEMIAS 03/03/2018 RACHELE JEFFERSON PHARMACY INNOVATION ASSISTANT Ot R06.02 SHORTNESS OF BREATH 03/03/2018 Wei ALCARAZ MD Ot R06.02 SHORTNESS OF BREATH 03/03/2018 KELLY KHOURY, TUBRodrigo Ot D50 .9 IRON DEFICIENCY ANEMIA, UNSPECIFIED 03/03/2018 KELLY KHOURY, ERMIAS Ot R11 .2 NAUSEA WITH VOMITING, UNSPECIFIED 03/03/2018 SABRINA ROSSI DO Joe Ot Z01.818 ENCOUNTER FOR OTHER PREPROCEDURAL EXAMIN 03/03/2018 MELIZA KHOURY, BRANDEN Ot D50.9 IRON DEFICIENCY ANEMIA, UNSPECIFIED 03/03/2018 MELIZA KHOURY, BRANDEN Ot E03.9 HYPOTHYROIDISM, UNSPECIFIED 03/03/2018 MELIZA KHOURY, BRANDEN Ot 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 03/03/2018 BRANDEN HAIDER MD Ot I12.9 HYPERTENSIVE CHRONIC KIDNEY DISEASE W ST 03/03/2018 BRANDEN HAIDER MD Ot 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 03/03/2018 MELIZA KHOURY, BRANDEN Ot I48.91 UNSPECIFIED ATRIAL FIBRILLATION 03/03/2018 BRANDEN HAIDER MD Ot N18.3 CHRONIC KIDNEY DISEASE, STAGE 3 (MODERAT 03/03/2018 MELIZA KHOURY, BRANDEN Ot Z79.899 OTHER HOSPITAL SECURITY OFFICER (CURRENT) DRUG THERAPY 03/03/2018 CHICHI RIVAS PHARMACY INNOVATION ASSISTANT Ot 574.20 CHOLELITHIASIS NOS 03/03/2018 CHICHI RIVAS PHARMACY INNOVATION ASSISTANT Ot 789.1 HEPATOMEGALY 03/03/2018 LINDA GONZALESC, ALI FACP CCDS Ot 401.9 [...] IRON DEFIC ANEMIA NOS 03/03/2018 Ot 585.3 RELIGIOUS HEALER LEANDRO KIDNEY DISEASE, STAGE III (MODER 03/03/2018 [...] 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 03/03/2018 SHIREEN AGARWAL Ot I12.9 HYPERTENSIVE CHRONIC KIDNEY DISEASE W ST 03/03/2018 SHIREEN AGARWAL Ot 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 03/03/2018 SHIREEN AGARWAL Ot I48.91 UNSPECIFIED ATRIAL FIBRILLATION 03/03/2018 SHIREEN AGARWAL Ot N18.3 CHRONIC KIDNEY DISEASE, STAGE 3 (MODERAT 03/03/2018 SHIREEN AGARWAL Ot Z79.899 OTHER HALFWAY (CURRENT) DRUG THERAPY 03/03/2018 KIERAN KHOURY, BERNY Champion Ot 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 03/03/2018 BERNY ALCARAZ MD Ot 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 03/03/2018 KIERAN KHOURY, Wei BRANDON Ot I47 .1 SUPRAVENTRICULAR TACHYCARDIA 03/03/2018 KIERAN KHOURY, Wei BRANDON Ot I48.91 UNSPECIFIED ATRIAL FIBRILLATION 03/03/2018 ROSSI DO SABRINA D Ot D50. 9 IRON DEFICIENCY ANEMIA, UNSPECIFIED 03/03/2018 ROSSI DO, SABRINA D Ot R19. 5 OTHER FECAL ABNORMALITIES 03/03/2018 ROSSI DO SABRINA D Ot Z01.818 ENCOUNTER FOR OTHER PREPROCEDURAL EXAMIN 03/03/2018 ROSSICARLYN WOOD SABRINA D Ot Z80. 0 FAMILY HISTORY OF MALIGNANT NEOPLASM OF 03/03/2018 ROSSI DO SABRINA D Ot D64. 9 ANEMIA, UNSPECIFIED 03/03/2018 ROSSI DO SABRINA D Ot E03. 9 HYPOTHYROIDISM, UNSPECIFIED 03/03/2018 ROSSI DO SABRINA D Ot E11. 9 TYPE 2 DIABETES MELLITUS WITHOUT COMPLIC 03/03/2018 ROSSI DO SABRINA D Ot K59. 09 OTHER CONSTIPATION 03/03/2018 ROSSI DO, SABRINA D Ot K29. 80 DUODENITIS WITHOUT BLEEDING 03/03/2018 BRIAN KHOURY, JAMES Champion Ot E03.9 HYPOTHYROIDISM, UNSPECIFIED 03/03/2018 JAMES TORRES MD Ot E11.9 TYPE 2 DIABETES MELLITUS WITHOUT COMPLIC 03/03/2018 JAMES TORRES MD Ot I10 ESSENTIAL (PRIMARY) HYPERTENSION 03/03/2018 FLO WOOD SABRINA D Ot D64. 9 ANEMIA, UNSPECIFIED 03/03/2018 ROSSI DO SABRINA D Ot K76. 89 OTHER SPECIFIED DISEASES OF LIVER 03/03/2018 ROSSI DO SABRINA D Ot K82. 1 HYDROPS OF GALLBLADDER 03/03/2018 RACHELE JEFFERSON PHARMACY INNOVATION ASSISTANT Ot D64.89 OTHER SPECIFIED ANEMIAS 03/03/2018 RACHELE JEFFERSON PHARMACY INNOVATION ASSISTANT Ot R06.02 SHORTNESS OF BREATH 03/03/2018 KIERAN [...] 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 03/03/2018 MELIZA KHOURY, OTERO Ot I12.9 HYPERTENSIVE CHRONIC KIDNEY DISEASE W ST 03/03/2018 MELIZA KHOURY, OTERO Ot 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 03/03/2018 TAMARA HAIDER MDNER Ot I48.91 UNSPECIFIED ATRIAL FIBRILLATION 03/03/2018 BRANDEN HAIDER MD Ot N18.3 CHRONIC KIDNEY DISEASE, STAGE 3 (MODERAT 03/03/2018 MELIZA KHOURY, OTERO Ot Z79.899 OTHER HOSPITAL SECURITY OFFICER (CURRENT) DRUG THERAPY 03/05/2018 BRANDEN HAIDER MD Ot D50.9 IRON DEFICIENCY ANEMIA, UNSPECIFIED 03/05/2018 BRANDEN HAIDER MD Ot E03.9 HYPOTHYROIDISM, UNSPECIFIED 03/05/2018 MELIZA KHOURY, OTERO Ot 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 03/05/2018 MELIZA KHOURY, OTERO Ot I12.9 HYPERTENSIVE CHRONIC KIDNEY DISEASE W ST 03/05/2018 TAMARA HAIDER MDNER Ot 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 03/05/2018 TAMARA HAIDER MDNER Ot I48.91 UNSPECIFIED ATRIAL FIBRILLATION 03/05/2018 BRANDEN HAIDER MD Ot N18.3 CHRONIC KIDNEY DISEASE, STAGE 3 (MODERAT 03/05/2018 MELIZA KHOURY, OTERO Ot Z79.899 OTHER HALFWAY (CURRENT) DRUG THERAPY 03/14/2018 BRANDEN HAIDER MD Ot D50.9 IRON DEFICIENCY ANEMIA, UNSPECIFIED 03/14/2018 TAMARA HAIDER MDNER Ot E03.9 HYPOTHYROIDISM, UNSPECIFIED 03/14/2018 MELIZA KHOURY, OTERO Ot 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 03/14/2018 MELIZA KHOURY OTERO Ot I12.9 HYPERTENSIVE CHRONIC KIDNEY DISEASE W ST 03/14/2018 MELIZA KHOURY OTERO Ot 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 03/14/2018 TAMARA HAIDER MDNER Ot I48.91 UNSPECIFIED ATRIAL FIBRILLATION 03/14/2018 BRANDEN HAIDER MD Ot N18.3 CHRONIC KIDNEY DISEASE, STAGE 3 (MODERAT 03/14/2018 MELIZA KHOURY, BRANDEN Ot Z79.899 OTHER HALFWAY (CURRENT) DRUG THERAPY 03/16/2018 KIERAN KHOURY, Wei BRANDON Ot R06.02 SHORTNESS OF BREATH 03/16/2018 KELLY KHOURY, TUBA Ot D50 .9 IRON DEFICIENCY ANEMIA, UNSPECIFIED 03/16/2018 KELLY KHOURY, TUBA Ot R11 .2 NAUSEA WITH VOMITING, UNSPECIFIED 03/16/2018 SABRINA ROSSI DO Ot Z01.818 ENCOUNTER FOR OTHER PREPROCEDURAL EXAMIN 03/16/2018 BRANDEN HAIDER MD Ot D50.9 IRON DEFICIENCY ANEMIA, UNSPECIFIED 03/16/2018 BRANDEN HAIDER MD Ot E03.9 HYPOTHYROIDISM, UNSPECIFIED 03/16/2018 MELIZA KHOURY, BRNADEN Ot 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 03/16/2018 BRANDEN HAIDER MD Ot I12.9 HYPERTENSIVE CHRONIC KIDNEY DISEASE W ST 03/16/2018 BRANDEN HAIDER MD Ot 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 03/16/2018 BRANDEN HAIDER MD Ot I48.91 UNSPECIFIED ATRIAL FIBRILLATION 03/16/2018 BRANDEN HAIDER MD Ot N18.3 CHRONIC KIDNEY DISEASE, STAGE 3 (MODERAT 03/16/2018 MELIZA KHOURY, BRANDEN Ot Z79.899 OTHER HALFWAY (CURRENT) DRUG THERAPY 03/22/2018 NWAGWU, ISIRE O HAND TOOL LAPPER Ot M79.89 OTHER SPECIFIED SOFT TISSUE DISORDERS 03/22/2018 NWJOSE DE JESUSWANNEL ShannonDORE O HAND TOOL LAPPER Ot M79.89 OTHER SPECIFIED SOFT TISSUE DISORDERS 03/22/2018 CHICHI RIVAS PHARMACY INNOVATION ASSISTANT Ot 574.20 CHOLELITHIASIS NOS 03/22/2018 CHICHI RIVAS PHARMACY INNOVATION ASSISTANT Ot 789.1 HEPATOMEGALY 03/22/2018 LINDA KHOURY FACFernanda, ALI FACP CCDS Ot 401.9 HYPERTENSION NOS 03/22/2018 LINDA GONZALESC, ALI FACP CCDS Ot 414.00 [...] IRON DEFIC ANEMIA NOS 03/22/2018 Ot 585.3 RELIGIOUS HEALER LEANDRO KIDNEY DISEASE, STAGE III (MODER 03/22/2018 Ot V58.69 OTH MED,LT,CURRENT USE 03/22/2018 Ot 250.02 AWA B NALLELY YODER COMPL, TYPE II OR UNSPEC TY 03/22/2018 HARVEY KHOURY, CLAUDE S Ot 574.20 CHOLELITHIASIS NOS 03/22/2018 HARVEY KHOURY, AHMED S Ot 585.2 CHRONIC KIDNEY DISEASE, STAGE II (MILD) 03/22/2018 OVI KHOURY, WU Ot E03.9 HYPOTHYROIDISM, UNSPECIFIED 03/22/2018 OVI KHOURY, WU Ot E11.6 5 TYPE 2 DIABETES MELLITUS WITH HYPERGLYCE 03/22/2018 OVI KHOURY, WU Ot E78.5 HYPERLIPIDEMIA, UNSPECIFIED 03/22/2018 OVI KHOURY, TORI-FRANKIE Ot I10 ESSENTIAL (PRIMARY) HYPERTENSION 03/22/2018 WU DIOR MD Ot E03.9 HYPOTHYROIDISM, UNSPECIFIED 03/22/2018 OVI KHOURY, TORI-FRANKIE Ot E11.9 TYPE 2 DIABETES MELLITUS WITHOUT COMPLIC 03/22/2018 OVI KHOURY, WU Ot E78.5 HYPERLIPIDEMIA, UNSPECIFIED 03/22/2018 OVI KHOURY, WU Ot I10 ESSENTIAL (PRIMARY) HYPERTENSION 03/22/2018 SHIREEN AGARWAL Ot D64.9 ANEMIA, UNSPECIFIED 03/22/2018 SHIREEN AGARWAL Ot E03.9 HYPOTHYROIDISM, UNSPECIFIED 03/22/2018 SHIREEN AGARWAL Ot 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 03/22/2018 SHIREEN AGARWAL Ot I12.9 HYPERTENSIVE CHRONIC KIDNEY DISEASE W ST 03/22/2018 SHIREEN AGARWAL Ot 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 03/22/2018 SHIREEN AGARWAL Ot I48.91 UNSPECIFIED ATRIAL FIBRILLATION 03/22/2018 SHIREEN AGARWAL Ot N18.3 CHRONIC KIDNEY DISEASE, STAGE 3 (MODERAT 03/22/2018 SHIREEN AGARWAL Ot Z79.899 OTHER HOSPITAL SECURITY OFFICER (CURRENT) DRUG THERAPY 03/22/2018 KIERAN KHOURY, BERNY Champion Ot 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 03/22/2018 BERNY ALCARAZ MD Ot 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 03/22/2018 KIERAN KHOURY, Wei BRANDON Ot I47 .1 SUPRAVENTRICULAR TACHYCARDIA 03/22/2018 KIERAN KHOURY, Wei BRANDON Ot I48.91 UNSPECIFIED ATRIAL FIBRILLATION 03/22/2018 SABRINA ROSSI DO D Ot D50. 9 IRON DEFICIENCY ANEMIA, UNSPECIFIED 03/22/2018 LALO ROSSI DOTT D Ot R19. 5 OTHER FECAL ABNORMALITIES 03/22/2018 SABRINA ROSSI DO D Ot Z01.818 ENCOUNTER FOR OTHER PREPROCEDURAL EXAMIN 03/22/2018 SABRINA ROSSI DO D Ot Z80. 0 FAMILY HISTORY OF MALIGNANT NEOPLASM OF 03/22/2018 FLO WOOD SABRINA D Ot D64. 9 ANEMIA, UNSPECIFIED 03/22/2018 FLO WOOD SABRINA D Ot E03. 9 HYPOTHYROIDISM, UNSPECIFIED 03/22/2018 FLO WOOD SABRINA D Ot E11. 9 TYPE 2 DIABETES MELLITUS WITHOUT COMPLIC 03/22/2018 ROSSICARLYN WOOD SABRINA D Ot K59. 09 OTHER CONSTIPATION 03/22/2018 ROSSI DO, SABRINA D Ot K29. 80 [...] 1 HYDROPS OF GALLBLADDER 03/22/2018 RACHELE JEFFERSON PHARMACY INNOVATION ASSISTANT Ot D64.89 OTHER SPECIFIED ANEMIAS 03/22/2018 RACHELE JEFFERSON PHARMACY INNOVATION ASSISTANT Ot R06.02 SHORTNESS OF BREATH 03/22/2018 KIERAN KHOURY, Wei BRANDON Ot R06.02 SHORTNESS OF BREATH 03/22/2018 KELLY KHOURY TUBRodrigo Ot D50 .9 IRON DEFICIENCY ANEMIA, UNSPECIFIED 03/22/2018 KELLY KHOURY TUBA Ot R11 .2 NAUSEA WITH VOMITING, UNSPECIFIED 03/22/2018 NWAGWU, ISIDORE O HAND TOOL LAPPER Ot M79.89 OTHER SPECIFIED SOFT TISSUE DISORDERS 03/26/2018 NWAGWU, ISIDORE O HAND TOOL LAPPER Ot M79.89 OTHER SPECIFIED SOFT TISSUE DISORDERS 03/26/2018 NWAGWU, ISIDORE O HAND TOOL LAPPER Ot M79.89 OTHER SPECIFIED SOFT TISSUE DISORDERS 04/29/2018 KIERAN KHOURY, Wei BRANDON Ot R06.02 SHORTNESS OF BREATH 04/29/2018 KELLY KHOURY TUBRodrigo Ot D50 .9 IRON DEFICIENCY ANEMIA, UNSPECIFIED 04/29/2018 KELLY KHOURY TUBRodrigo Ot R11 .2 NAUSEA WITH VOMITING, UNSPECIFIED 04/29/2018 SABRINA ROSSI DO Ot Z01.818 ENCOUNTER FOR OTHER PREPROCEDURAL EXAMIN 04/29/2018 BRANDEN HAIDER MD, Ot D50.9 IRON DEFICIENCY ANEMIA, UNSPECIFIED 04/29/2018 BRANDEN HAIDER MD Ot E03.9 HYPOTHYROIDISM, UNSPECIFIED 04/29/2018 BRANDEN HAIDER MD Ot 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 04/29/2018 BRANDEN HAIDER MD Ot I12.9 HYPERTENSIVE CHRONIC KIDNEY DISEASE W ST 04/29/2018 BRANDEN HAIDER MD Ot 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 04/29/2018 BRANDEN HAIDER MD Ot I48.91 UNSPECIFIED ATRIAL FIBRILLATION 04/29/2018 BRANDEN HAIDER MD Ot N18.3 CHRONIC KIDNEY DISEASE, STAGE 3 (MODERAT 04/29/2018 BRANDEN HAIDER MD Ot Z79.899 OTHER HOSPITAL SECURITY OFFICER (CURRENT) DRUG THERAPY 05/03/2018 KELLY KHOURY, ERMIAS Ot Z53 .9 PROCEDURE AND TREATMENT NOT CARRIED OUT, 05/05/2018 RONNY RACHELE Clement PHARMACY INNOVATION ASSISTANT Ot D64.9 ANEMIA, UNSPECIFIED 05/05/2018 JEFFERSONTAIDRE Urbano PHARMACY INNOVATION ASSISTANT Ot I87.2 VENOUS INSUFFICIENCY (CHRONIC) (PERIPHER 05/10/2018 TAI JEFFERSONDRE Clement PHARMACY INNOVATION ASSISTANT Ot D64.9 ANEMIA, UNSPECIFIED 05/10/2018 JEFFERSONTAIDRE Clement PHARMACY INNOVATION ASSISTANT Ot I87.2 VENOUS INSUFFICIENCY (CHRONIC) (PERIPHER 05/20/2018 BRANDEN HAIDER MD Ot D50.9 IRON DEFICIENCY ANEMIA, UNSPECIFIED 05/20/2018 BRANDEN HAIDER MD Ot E03.9 HYPOTHYROIDISM, UNSPECIFIED 05/20/2018 BRANDEN HAIDER MD Ot 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 05/20/2018 BRANDEN HAIDER MD Ot I12.9 HYPERTENSIVE CHRONIC KIDNEY DISEASE W ST 05/20/2018 BRANDEN HAIDER MD Ot 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 05/20/2018 BRANDEN HAIDER MD Ot I48.91 UNSPECIFIED ATRIAL FIBRILLATION 05/20/2018 BRANDEN HAIDER MD Ot N18.3 CHRONIC KIDNEY DISEASE, STAGE 3 (MODERAT 05/20/2018 BRANDEN HAIDER MD Ot Z79.899 OTHER HOSPITAL SECURITY OFFICER (CURRENT) DRUG THERAPY 05/24/2018 TOMASA CARMONA MD [...] MD, Ot 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 05/24/2018 TOMASA CARMONA MD Ot I25 .2 OLD MYOCARDIAL INFARCTION 05/24/2018 [...] MD, Ot 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 05/25/2018 TOMASA CARMONA MD, Ot I25 .2 OLD MYOCARDIAL INFARCTION 05/25/2018 KRISTINE MD, TOMASA N Ot I48 .0 PAROXYSMAL ATRIAL FIBRILLATION 05/25/2018 [...] COLI THE CAUSE OF DI 05/25/2018 TOMASA CAROMNA MD, Ot D50 .0 IRON DEFICIENCY ANEMIA [...] MD, Ot 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 05/25/2018 TOMASA CARMONA MD, Ot I25 [...] MD, Ot 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 05/27/2018 TOMASA CARMONA MD, Ot I25 .2 OLD MYOCARDIAL INFARCTION 05/27/2018 TOMASA CARMONA MD, Ot I27.20 PULMONARY HYPERTENSION, UNSPECIFIED 05/27/2018 TOMASA CARMONA MD, Ot I34 .0 NONRHEUMATIC MITRAL (VALVE) INSUFFICIENC 05/27/2018 TOMASA CARMONA MD, Ot I48 .0 PAROXYSMAL ATRIAL FIBRILLATION 05/27/2018 TOMASA CARMONA MD, Ot I50 .9 HEART FAILURE, UNSPECIFIED 05/27/2018 [...] INFECTION, SITE NOT SPECIF 05/27/2018 TOMASA CARMONA MD, Ot R10.13 EPIGASTRIC PAIN 05/27/2018 TOMASA CARMONA MD Ot R78.81 BACTEREMIA 05/27/2018 TOMASA CARMONA MD, Ot T80.218A OTHER INFECTION DUE TO CENTRAL VENOUS CA 05/27/2018 TOMASA CARMONA MD, Ot Z87.8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 05/27/2018 TOMASA CARMONA MD Ot Z95 .1 PRESENCE OF AORTOCORONARY BYPASS GRAFT 05/28/2018 Wei ALCARAZ MD Ot I47 .1 SUPRAVENTRICULAR TACHYCARDIA 05/28/2018 Wei ALCARAZ MD Ot I48.91 UNSPECIFIED ATRIAL FIBRILLATION 05/28/2018 MODESTO BALDERRAMA MD, Ot D64 .9 ANEMIA, UNSPECIFIED 05/28/2018 MODESTO BALDERRAMA MD Ot E11 .9 TYPE 2 DIABETES MELLITUS WITHOUT COMPLIC 05/28/2018 MODESTO BALDERRAMA MD Ot E66 .9 OBESITY, UNSPECIFIED 05/28/2018 MODESTO BALDERRAMA MD Ot E78.00 PURE HYPERCHOLESTEROLEMIA, UNSPECIFIED 05/28/2018 MODESTO BALDERRAMA MD Ot G47.30 SLEEP APNEA, UNSPECIFIED 05/28/2018 MODESTO BALDERRAMA MD Ot I10 ESSENTIAL (PRIMARY) HYPERTENSION 05/28/2018 MODESTO BALDERRAMA MD Ot 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 05/28/2018 MODESTO BALDERRAMA MD, Ot I25 .2 OLD MYOCARDIAL INFARCTION 05/28/2018 MODESTO BALDERRAMA MD Ot I48.91 UNSPECIFIED ATRIAL FIBRILLATION 05/28/2018 MODESTO BALDERRAMA MD Ot J91 .8 PLEURAL EFFUSION IN OTHER CONDITIONS CLA 05/28/2018 MODESTO BALDERRAMA MD Ot K21 .9 GASTRO-ESOPHAGEAL REFLUX DISEASE WITHOUT 05/28/2018 MODESTO BALDERRAMA MD Ot R06.02 SHORTNESS OF BREATH 05/28/2018 MODESTO BALDERRAMA MD Ot Z68.42 BODY MASS INDEX (BMI) 45.0-49.9, ADULT 05/28/2018 MODESTO BALDERRAMA MD Ot Z79 .4 HOSPITAL SECURITY OFFICER (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 OF INSULIN 05/28/2018 MODESTO BALDERRAMA MD, Ot Z79.82 HALFWAY (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 OF ASPIRIN 05/28/2018 MODESTO BALDERRAMA MD, Ot Z80 .0 FAMILY HISTORY OF MALIGNANT NEOPLASM OF 05/28/2018 MODESTO BALDERRAMA MD Ot Z82.49 FAMILY HX OF ISCHEM HEART DIS AND OTH DI 05/28/2018 MODESTO BALDERRAMA MD Ot Z86.010 PERSONAL HISTORY OF COLONIC POLYPS 05/28/2018 MODESTO BALDERRAMA MD Ot Z87.19 PERSONAL HISTORY OF OTHER DISEASES OF TH 05/28/2018 MODESTO BALDERRAMA MD, Ot Z87.448 PERSONAL HISTORY OF OTHER DISEASES OF UR 05/28/2018 MODESTO BALDERRAMA MD, Ot Z87.8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 05/28/2018 MODESTO BALDERRAMA MD Ot Z88 .8 ALLERGY STATUS TO OT DRUG/MEDS/BIOL SUB 05/28/2018 MODESTO BALDERRAMA MD Ot Z90.89 ACQUIRED ABSENCE OF OTHER ORGANS 05/28/2018 MODESTO BALDERRAMA MD Ot Z95 .5 PRESENCE OF CORONARY ANGIOPLASTY IMPLANT 05/28/2018 MODESTO BALDERRAMA MD Ot Z95 .9 PRESENCE OF CARDIAC AND VASCULAR IMPLANT 05/28/2018 MODESTO BALDERRAMA MD Ot Z98.51 TUBAL LIGATION STATUS 05/30/2018 MACIEL WELCH SAMANTHA Ot M79.89 OTHER SPECIFIED SOFT TISSUE DISORDERS [...] F41.9 ANXIETY DISORDER, UNSPECIFIED 06/01/2018 JAMES TORRES MD Ot 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 06/01/2018 JAMES TORRES MD, Ot I25.1 0 ATHSCL HEART DISEASE OF [place] CORONARY 06/01/2018 JAMES TORRES MD, Ot I25.2 OLD MYOCARDIAL INFARCTION 06/01/2018 JAMES TORRES MD Ot I50.3 3 [...] MD, Ot Y92.[address] IN OT NON-INSTITUTIONAL RESI 06/01/2018 JAMES TORRES MD, Ot Z68.4 3 BODY MASS INDEX (BMI) 50-59.9, ADULT 06/01/2018 JAMES TORRES MD, Ot Z79.4 HALFWAY (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 OF INSULIN 06/01/2018 JAMES TORRES [...] Ot I25.1 0 ATHSCL HEART DISEASE OF [place] CORONARY 06/01/2018 JAMES TORRES MD, Ot I27.2 0 PULMONARY HYPERTENSION, UNSPECIFIED 06/01/2018 JAMES TORRES MD, Ot I34.0 NONRHEUMATIC MITRAL (VALVE) INSUFFICIENC 06/01/2018 JAMES TORRES MD, Ot I48.0 PAROXYSMAL ATRIAL FIBRILLATION 06/01/2018 JAMES TORRES MD, Ot I50.3 3 [...] DISEASE, UNSPECIFIED 06/01/2018 JAMES TORRES MD, Ot N39.0 URINARY TRACT INFECTION, SITE NOT SPECIF 06/01/2018 JAMES TORRES MD Ot R18.8 OTHER ASCITES 06/01/2018 JAMES TORRES MD, Ot R41.0 DISORIENTATION, UNSPECIFIED 06/01/2018 JAMES TORRES MD Ot W19.XXXA UNSPECIFIED FALL, INITIAL ENCOUNTER 06/01/2018 JAMES TORRES MD Ot Y92.[address] IN [facility] NON-INSTITUTIONAL RESI 06/01/2018 JAMES TORRES MD, Ot Z68.4 3 BODY MASS INDEX (BMI) 50-59.9, ADULT 06/01/2018 JAMES TORRES MD, Ot Z95.1 PRESENCE [...] MD Ot 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 06/04/2018 MODESTO BALDERRAMA MD, Ot I25 [...] 06/04/2018 MODESTO BALDERRAMA MD Ot Z79 .4 HALFWAY (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 OF INSULIN 06/04/2018 MODESTO BALDERRAMA MD Ot Z79.82 HALFWAY (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 OF ASPIRIN 06/04/2018 MODESTO BALDERRAMA [...] HISTORY OF NICOTINE DEPENDENCE 06/04/2018 MODESTO BALDERRAMA MD, Ot Z88 .8 ALLERGY STATUS TO OTH [...] 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 06/14/2018 BRANDEN HAIDER MD Ot I12.9 HYPERTENSIVE CHRONIC KIDNEY DISEASE W ST 06/14/2018 BRANDEN HAIDER MD Ot 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 06/14/2018 BRANDEN HAIDER MD Ot I48.91 UNSPECIFIED ATRIAL FIBRILLATION 06/14/2018 BRANDEN HAIDER MD Ot N18.3 CHRONIC KIDNEY DISEASE, STAGE 3 (MODERAT 06/14/2018 BRANDEN HAIDER MD Ot Z79.899 OTHER HOSPITAL SECURITY OFFICER (CURRENT) DRUG THERAPY 06/18/2018 NWAGWU, ISIDORE O HAND TOOL LAPPER Ot M79.89 OTHER SPECIFIED SOFT TISSUE DISORDERS 06/18/2018 NWAGWU, ISIDORE O HAND TOOL LAPPER Ot M79.89 OTHER SPECIFIED SOFT TISSUE DISORDERS 06/18/2018 KIERAN KHOURY, Wei BRANDON Ot I47 .1 SUPRAVENTRICULAR TACHYCARDIA 06/18/2018 Wei ALCARAZ MD Ot I48.91 UNSPECIFIED ATRIAL FIBRILLATION 06/18/2018 SHIREEN AGARWAL Ot D50.9 IRON DEFICIENCY ANEMIA, UNSPECIFIED 06/18/2018 SHIREEN AGARWAL Ot E03.9 HYPOTHYROIDISM, UNSPECIFIED 06/18/2018 SHIREEN AGARWAL Ot 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 06/18/2018 SHIREEN AGARWAL Ot I12.9 HYPERTENSIVE CHRONIC KIDNEY DISEASE W ST 06/18/2018 SHIREEN AGARWAL Ot 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 06/18/2018 SHIREEN AGARWAL Ot I48.91 UNSPECIFIED ATRIAL FIBRILLATION 06/18/2018 SHIREEN AGARWAL Solange Ot N18.3 CHRONIC KIDNEY DISEASE, STAGE 3 (MODERAT 06/18/2018 SHIREEN AGARWAL Solange Ot Z79.899 OTHER HALFWAY (CURRENT) DRUG THERAPY 06/20/2018 BRANDEN HAIDER MD Ot D50.9 IRON DEFICIENCY ANEMIA, UNSPECIFIED 06/20/2018 BRANDEN HAIDER MD Ot E03.9 HYPOTHYROIDISM, UNSPECIFIED 06/20/2018 BRANDEN HAIDER MD Ot 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 06/20/2018 BRANDEN HAIDER MD Ot I12.9 HYPERTENSIVE CHRONIC KIDNEY DISEASE W ST 06/20/2018 BRANDEN HAIDER MD Ot 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 06/20/2018 BRANDEN HAIDER MD, Ot I48.91 UNSPECIFIED ATRIAL FIBRILLATION 06/20/2018 BRANDEN HAIDER MD Ot N18.3 CHRONIC KIDNEY DISEASE, STAGE 3 (MODERAT 06/20/2018 MELIZA KHOURY, BRANDEN Ot Z79.899 OTHER HALFWAY (CURRENT) DRUG THERAPY 07/01/2018 GARCIA DO, MICHELLE Ot D64.9 ANEMIA, UNSPECIFIED 07/01/2018 GARCIA DO, MICHELLE Ot D69.6 THROMBOCYTOPENIA, UNSPECIFIED 07/01/2018 GARCIA DO, MICHELLE Ot E03.9 HYPOTHYROIDISM, UNSPECIFIED 07/01/2018 GARCIA DO, MICHELLE Ot E11.65 TYPE 2 DIABETES MELLITUS WITH HYPERGLYCE 07/01/2018 GARCIA DO, MICHELLE Ot E66.01 MORBID (SEVERE) OBESITY DUE TO EXCESS CA 07/01/2018 GARCIA DO, MICHELLE Ot E78.5 HYPERLIPIDEMIA, UNSPECIFIED 07/01/2018 GARCIA DO, MICHELLE Ot F41.9 ANXIETY DISORDER, UNSPECIFIED 07/01/2018 GARCIA DO, MICHELLE Ot G72.81 CRITICAL ILLNESS MYOPATHY 07/01/2018 GARCIA DO, MICHELLE Ot 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 07/01/2018 RADHA DO, MICHELLE Ot 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 07/01/2018 RADHA DO MICHELLE Ot I25.2 OLD MYOCARDIAL INFARCTION 07/01/2018 RADHA DO MICHELLE Ot I48.0 PAROXYSMAL ATRIAL FIBRILLATION 07/01/2018 GARCIA DO, MICHELLE Ot I50.32 CHRONIC DIASTOLIC (CONGESTIVE) HEART KATY 07/01/2018 RADHA WOOD MICHELLE Ot J44.9 CHRONIC OBSTRUCTIVE PULMONARY DISEASE, U 07/01/2018 EMILIANO GARCIA DOI Ot K21.9 GASTRO-ESOPHAGEAL REFLUX DISEASE WITHOUT 07/01/2018 RADHA WOOD MICHELLE Ot K22.70 ZELAYA'S ESOPHAGUS WITHOUT DYSPLASIA 07/01/2018 RADHA WOOD MICHELLE Ot K31.81 1 ANGIODYSPLASIA OF STOMACH AND DUODENUM W 07/01/2018 EMILIANO GARCIA DOI Ot K74.60 UNSPECIFIED CIRRHOSIS OF LIVER 07/01/2018 RADHA WOOD MICHELLE Ot L40.9 PSORIASIS, UNSPECIFIED 07/01/2018 RADHA WOOD MICHELLE Ot N18.9 CHRONIC KIDNEY DISEASE, UNSPECIFIED 07/01/2018 MICHELLE GARCIA DO Ot R09.02 HYPOXEMIA 07/01/2018 RADHA WOOD MICHELLE Ot Z68.42 BODY MASS INDEX (BMI) 45.0-49.9, ADULT 07/01/2018 MICHELLE GARCIA DO Ot 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 07/01/2018 RADHA WOOD MICHELLE Ot Z87.89 1 PERSONAL HISTORY OF NICOTINE DEPENDENCE 07/01/2018 EMILIANO GARCIA DOI Ot Z95.1 PRESENCE OF AORTOCORONARY BYPASS GRAFT 07/01/2018 MICHELLE GARCIA DO Ot Z95.5 PRESENCE OF CORONARY ANGIOPLASTY IMPLANT 07/01/2018 RADHA WOOD MICHELLE Ot Z99.81 DEPENDENCE ON SUPPLEMENTAL OXYGEN 07/01/2018 RADHA WOOD MICHELLE Ot D50.0 IRON DEFICIENCY ANEMIA SECONDARY TO BLOO 07/01/2018 EMILIANO GARCIA DOI Ot D64.9 ANEMIA, UNSPECIFIED 07/01/2018 RADHA WOOD [...] (SEVERE) OBESITY DUE TO EXCESS CA 07/01/2018 MICHELLE GARCIA DO Ot E78.5 HYPERLIPIDEMIA, UNSPECIFIED 07/01/2018 EMILIANO GARCIA DOI Ot E83.42 HYPOMAGNESEMIA 07/01/2018 MICHELLE GARCIA DO Ot F41.9 ANXIETY DISORDER, UNSPECIFIED 07/01/2018 EMILIANO GARCIA DOI Ot G72.81 CRITICAL ILLNESS MYOPATHY 07/01/2018 MICHELLE GARCIA DO Ot 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 07/01/2018 EMILIANO GARCIA DOI Ot 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 07/01/2018 EMILIANO GARCIA DOI Ot I25.11 9 ATHSCL HEART DISEASE OF [place] COR ART W 07/01/2018 EMILIANO GARCIA DOI Ot I25.2 OLD MYOCARDIAL INFARCTION 07/01/2018 EMILIANO GARCIA DOI Ot I31.3 PERICARDIAL EFFUSION (NONINFLAMMATORY) 07/01/2018 EMILIANO GARCIA DOI Ot I48.0 PAROXYSMAL ATRIAL FIBRILLATION 07/01/2018 EMILIANO GARCIA DOI Ot I50.32 CHRONIC DIASTOLIC (CONGESTIVE) HEART KATY 07/01/2018 EMILIANO GARCIA DOI Ot I87.2 VENOUS INSUFFICIENCY (CHRONIC) (PERIPHER 07/01/2018 MICHELLE GARCIA DO Ot J44.9 CHRONIC OBSTRUCTIVE PULMONARY DISEASE, U 07/01/2018 EMILIANO GARCIA DOI Ot J90 PLEURAL EFFUSION, [...] CHRONIC KIDNEY DISEASE, STAGE 3 (MODERAT 07/01/2018 GARCIA DO, MICHELLE Ot N18.9 CHRONIC KIDNEY DISEASE, UNSPECIFIED 07/01/2018 RADHA WOOD MICHELLE Ot R09.02 HYPOXEMIA 07/01/2018 EMILIANO GARCIA DOI Ot S46.91 2A STRAIN UNSP MUSC/FASC/TEND AT SHLDR/UP A 07/01/2018 EMILIANO GARCIA DOI Ot Z68.42 BODY MASS INDEX (BMI) 45.0-49.9, ADULT 07/01/2018 RADHA WOOD MICHELLE Ot Z79.4 HALFWAY (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 OF INSULIN 07/01/2018 RADHA WOOD MICHELLE Ot Z87.89 1 PERSONAL HISTORY OF NICOTINE DEPENDENCE 07/01/2018 RADHA WOOD MICHELLE Ot Z95.1 PRESENCE OF AORTOCORONARY BYPASS GRAFT 07/01/2018 RADHA WOOD MICHELLE Ot Z95.5 PRESENCE OF CORONARY ANGIOPLASTY IMPLANT 07/01/2018 RADHA WOOD MICHELLE Ot Z99.81 DEPENDENCE ON SUPPLEMENTAL OXYGEN 07/07/2018 SHIREEN AGARWAL Ot D64.9 ANEMIA, UNSPECIFIED 07/07/2018 SHIREEN AGARWAL Ot E11.9 TYPE 2 DIABETES MELLITUS WITHOUT COMPLIC 07/07/2018 SHIREEN AGARWAL N Ot K74.60 UNSPECIFIED CIRRHOSIS OF LIVER 07/07/2018 SHIREEN AGARWAL Ot N18.9 CHRONIC KIDNEY DISEASE, UNSPECIFIED 07/09/2018 JAMES TORRES MD, Ot D64.9 ANEMIA, UNSPECIFIED 07/09/2018 JAMES TORRES MD Ot E11.2 2 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 07/09/2018 JAMES TORRES MD Ot K74.6 0 UNSPECIFIED CIRRHOSIS OF LIVER 07/09/2018 JAMES TORRES MD, Ot N18.9 CHRONIC KIDNEY DISEASE, UNSPECIFIED 07/13/2018 NWAGWU, MACIEL O HAND TOOL LAPPER Ot M79.89 OTHER SPECIFIED SOFT TISSUE DISORDERS 07/13/2018 SHIREEN AGARWAL Ot D50.9 IRON DEFICIENCY ANEMIA, UNSPECIFIED 07/13/2018 SHIREEN AGARWAL Ot E03.9 HYPOTHYROIDISM, UNSPECIFIED 07/13/2018 SHIREEN AGARWAL N Ot 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 07/13/2018 SHIREEN AGARWAL N Ot I12.9 HYPERTENSIVE CHRONIC KIDNEY DISEASE W ST 07/13/2018 ANY, BOBAN N Ot 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 07/13/2018 ANY, BOBAN N Ot I48.91 UNSPECIFIED ATRIAL FIBRILLATION 07/13/2018 ANY, BOBAN N Ot N18.3 CHRONIC KIDNEY DISEASE, STAGE 3 (MODERAT 07/13/2018 JJ AGARWALAN N Ot Z79.899 OTHER HALFWAY (CURRENT) DRUG THERAPY 07/13/2018 ANY, BOBAN N Ot D64.9 ANEMIA, UNSPECIFIED 07/13/2018 ANY, BOBAN N Ot E11.9 TYPE 2 DIABETES MELLITUS WITHOUT COMPLIC 07/13/2018 ANY, BOBAN N Ot K74.60 UNSPECIFIED CIRRHOSIS OF LIVER 07/13/2018 ANY, BOBAN N Ot N18.9 CHRONIC KIDNEY DISEASE, UNSPECIFIED 07/13/2018 BRIAN KHOURY, JAMES R Ot D64.9 ANEMIA, UNSPECIFIED 07/13/2018 BRIAN KHOURY, JAMES R Ot E11.2 2 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 07/13/2018 BRIAN KHOURY, JAMES R Ot K74.6 0 UNSPECIFIED CIRRHOSIS OF LIVER 07/13/2018 JAMES TORRES MD R Ot N18.9 CHRONIC KIDNEY DISEASE, UNSPECIFIED 07/15/2018 ANY, BOBAN N Ot D50.9 IRON DEFICIENCY ANEMIA, UNSPECIFIED 07/15/2018 ANY, BOBAN N Ot E03.9 HYPOTHYROIDISM, UNSPECIFIED 07/15/2018 ANY, BOBAN N Ot 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 07/15/2018 ANY BOBAN N Ot I12.9 HYPERTENSIVE CHRONIC KIDNEY DISEASE W ST 07/15/2018 JJ AGARWALAN N Ot 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 07/15/2018 JJ AGARWALAN N Ot I48.91 UNSPECIFIED ATRIAL FIBRILLATION 07/15/2018 ANY, BOBAN N Ot N18.3 CHRONIC KIDNEY DISEASE, STAGE 3 (MODERAT 07/15/2018 ANY, BOBAN N Ot Z79.899 OTHER HALFWAY (CURRENT) DRUG THERAPY 07/28/2018 BRIAN KHOURY, JAMES R Ot D64.9 ANEMIA, UNSPECIFIED 07/28/2018 JAMES TORRES MD R Ot E11.2 2 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 07/28/2018 BRIAN KHOURY, JAMES R Ot K74.6 0 UNSPECIFIED CIRRHOSIS OF LIVER 07/28/2018 BRIAN KHOURY, JAMES Champion Ot N18.9 CHRONIC KIDNEY DISEASE, UNSPECIFIED 07/29/2018 JJ AGARWALBLU W 250.00 07/29/2018 ANY SHIREEN W 359.9 07/29/2018 ANY SHIREEN W 404.01 07/29/2018 ANYSHIREEN W 427.31 ATRIAL FIBRILLATION 07/29/2018 ANYSHIREEN W 428.32 07/29/2018 ANY SHIREEN W 511.1 PLEURISY WITH EFFUSION, WITH MENTION OF A BACTERIAL CAUSE OTHER THAN TUBERCULOSIS 07/29/2018 ANYSHIREEN W 537.83 ANGIODYSPLASIA OF STOMACH AND DUODENUM WITH HEMORRHAGE 07/29/2018 SHIREEN AGARWAL W 572.3 PORTAL HYPERTENSION 07/29/2018 ANYSHIREEN BALDWIN W 585.3 CHRONIC KIDNEY DISEASE, STAGE III (MODERATE) 07/29/2018 SHIREEN AGARWAL W E11.9 TYPE 2 DIABETES MELLITUS WITHOUT COMPLICATIONS 07/29/2018 SHIREEN AGARWAL G72.9 MYOPATHY, UNSPECIFIED 07/29/2018 ANYSHIREEN BALDWIN I13.0 HYP HRT T 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G 1-4/UNSP CHR [facility] 07/29/2018 SHIREEN AGARWAL I48.0 PAROXYSMAL ATRIAL FIBRILLATION 07/29/2018 SHIREEN AGARWAL I50.32 CHRONIC DIASTOLIC (CONGESTIVE) HEART FAILURE 07/29/2018 SHIREEN AGARWAL J90 PLEURAL EFFUSION, NOT ELSEWHERE CLASSIFIED 07/29/2018 SHIREEN AGARWAL K31.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ITH BLEEDING 07/29/2018 SHIREEN AGARWAL K76.6 PORTAL HYPERTENSION 07/29/2018 SHIREEN AGARWAL N18.3 CHRONIC KIDNEY DISEASE, STAGE 3 (MODERATE) 08/06/2018 SHIREEN AGARWAL Ot D50.0 IRON DEFICIENCY ANEMIA SECONDARY TO BLOO 08/06/2018 SHIREEN AGARWAL Ot E03.9 HYPOTHYROIDISM, UNSPECIFIED 08/06/2018 SHIREEN AGARWAL Ot 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 08/06/2018 SHIREEN AGARWAL Ot E53.8 DEFICIENCY OF OTHER SPECIFIED B GROUP 08/06/2018 SHIREEN AGARWAL Ot I12.9 HYPERTENSIVE CHRONIC KIDNEY DISEASE W ST 08/06/2018 SHIREEN AGARWAL Ot 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 08/06/2018 SHIREEN AGARWAL Ot I48.91 UNSPECIFIED ATRIAL FIBRILLATION 08/06/2018 SHIREEN AGARWAL Ot K31.819 ANGIODYSPLASIA OF STOMACH AND DUODENUM W 08/06/2018 SHIREEN AGARWAL Ot K74.60 UNSPECIFIED CIRRHOSIS OF LIVER 08/06/2018 SHIREEN AGARWAL Ot N18.3 CHRONIC KIDNEY DISEASE, STAGE 3 (MODERAT 08/06/2018 SHIREEN AGARWAL Ot Z79.899 OTHER HALFWAY (CURRENT) DRUG THERAPY 08/17/2018 MACIEL WELCH APRN Ot M79.89 OTHER SPECIFIED SOFT TISSUE DISORDERS 08/17/2018 SHIREEN AGARWAL Ot D50.0 IRON DEFICIENCY ANEMIA SECONDARY TO BLOO 08/17/2018 SHIREEN AGARWAL Ot E03.9 HYPOTHYROIDISM, UNSPECIFIED 08/17/2018 SHIREEN AGARWAL Ot 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 08/17/2018 SHIREEN AGARWAL Ot E53.8 DEFICIENCY OF OTHER SPECIFIED B GROUP 08/17/2018 SHIREEN AGARWAL Ot I12.9 HYPERTENSIVE CHRONIC KIDNEY DISEASE W ST 08/17/2018 SHIREEN AGARWAL Ot 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 08/17/2018 SHIREEN AGARWAL Ot I48.91 UNSPECIFIED ATRIAL FIBRILLATION 08/17/2018 SHIREEN AGARWLA Ot K31.819 ANGIODYSPLASIA OF STOMACH AND DUODENUM W 08/17/2018 SHIREEN AGARWAL N Ot K74.60 UNSPECIFIED CIRRHOSIS OF LIVER 08/17/2018 SHIREEN AGARWAL N Ot N18.3 CHRONIC KIDNEY DISEASE, STAGE 3 (MODERAT 08/17/2018 SHIREEN AGARWAL N Ot Z79.899 OTHER HOSPITAL SECURITY OFFICER (CURRENT) DRUG THERAPY 08/17/2018 SHIREEN AGARWAL Ot D64.9 ANEMIA, UNSPECIFIED 08/17/2018 SHIREEN AGARWAL N Ot E11.9 TYPE 2 DIABETES MELLITUS WITHOUT COMPLIC 08/17/2018 SHIREEN AGARWAL Ot K74.60 UNSPECIFIED CIRRHOSIS OF LIVER 08/17/2018 SHIREEN AGARWAL N Ot N18.9 CHRONIC KIDNEY DISEASE, UNSPECIFIED 08/17/2018 BIRAN KHOURY, JAMES R Ot D64.9 ANEMIA, UNSPECIFIED 08/17/2018 BRIAN KHOURY, JAMES R Ot E11.2 2 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 08/17/2018 BRIAN KHOURY, JAMES R Ot K74.6 [...] 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 09/27/2018 KATERYNA KHOURY, MAUREEN Rashid Ot E78.00 [...] MD, Ot 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 09/27/2018 MAUREEN AVENDAÑO MD, Ot I25.2 OLD MYOCARDIAL INFARCTION 09/27/2018 MAUREEN AVENDAÑO MD, Ot I48.91 UNSPECIFIED ATRIAL FIBRILLATION 09/27/2018 MAUREEN AVENDAÑO MD, Ot I50.9 HEART FAILURE, UNSPECIFIED 09/27/2018 MAUREEN AVENDAÑO MD, Ot K21.9 GASTRO-ESOPHAGEAL REFLUX DISEASE WITHOUT 09/27/2018 MAUREEN AVENDAÑO MD, Ot N18.9 CHRONIC KIDNEY DISEASE, UNSPECIFIED 09/27/2018 MAUREEN AVENDAÑO MD, Ot R06.02 SHORTNESS OF BREATH 09/27/2018 MAUREEN AVENDAÑO MD, Ot Z79.4 HALFWAY (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 OF INSULIN 09/27/2018 MAUREEN AVENDAÑO [...] TO OT DRUG/MEDS/BIOL SUB 09/27/2018 MAUREEN AVENDAÑO MD Ot Z90.89 ACQUIRED ABSENCE [...] 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 09/29/2018 MAUREEN AVENDAÑO MD, Ot E78.00 PURE HYPERCHOLESTEROLEMIA, UNSPECIFIED 09/29/2018 MAUREEN AVENDAÑO MD, Ot E87.70 FLUID OVERLOAD, UNSPECIFIED 09/29/2018 MAUREEN AVENDAÑO MD, Ot F41.9 ANXIETY DISORDER, UNSPECIFIED 09/29/2018 MAUREEN AVENDAÑO MD, Ot G47.30 SLEEP APNEA, UNSPECIFIED 09/29/2018 MAUREEN AVENDAÑO MD, Ot 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 09/29/2018 MAUREEN AVENDAÑO MD, Ot 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 09/29/2018 MAUREEN AVENDAÑO MD, Ot I25.2 OLD MYOCARDIAL INFARCTION 09/29/2018 MAUREEN AVENDAÑO MD, Ot I48.91 UNSPECIFIED ATRIAL FIBRILLATION 09/29/2018 MAUREEN AVENDAÑO MD, Ot I50.9 HEART FAILURE, UNSPECIFIED 09/29/2018 MAUREEN AVENDAÑO MD, Ot K21.9 GASTRO-ESOPHAGEAL REFLUX DISEASE WITHOUT 09/29/2018 MAUREEN AVENDAÑO MD, Ot N18.9 CHRONIC KIDNEY DISEASE, UNSPECIFIED 09/29/2018 MAUREEN AVENDAÑO MD, Ot R06.02 SHORTNESS OF BREATH 09/29/2018 MAUREEN AVENDAÑO MD, Ot 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 09/29/2018 MAUREEN AVENDAÑO MD, Ot Z80.0 FAMILY HISTORY OF MALIGNANT NEOPLASM OF 09/29/2018 MAUREEN AVENDAÑO MD, Ot Z82.49 FAMILY HX OF ISCHEM HEART DIS AND OTH DI 09/29/2018 MAUREEN AVENDAÑO MD, Ot Z86.010 PERSONAL HISTORY OF COLONIC POLYPS 09/29/2018 BRUEGGEMANN MD, MAUREEN T Ot Z87.19 PERSONAL HISTORY OF OTHER DISEASES OF TH 09/29/2018 MAUREEN AVENDAÑO MD Ot Z87.891 PERSONAL HISTORY [...] 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 10/07/2018 SHIREEN AGARWAL Ot E53.8 DEFICIENCY OF OTHER SPECIFIED B GROUP 10/07/2018 SHIREEN AGARWAL Ot I12.9 HYPERTENSIVE CHRONIC KIDNEY DISEASE W ST 10/07/2018 SHIREEN AGARWAL Ot 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 10/07/2018 SHIREEN AGARWAL Ot I48.91 UNSPECIFIED ATRIAL FIBRILLATION 10/07/2018 SHIREEN AGARWAL Ot K31.819 ANGIODYSPLASIA OF STOMACH AND DUODENUM W 10/07/2018 SHIREEN AGARWAL Ot K74.60 UNSPECIFIED CIRRHOSIS OF LIVER 10/07/2018 SHIREEN AGARWAL Ot N18.3 CHRONIC KIDNEY DISEASE, STAGE 3 (MODERAT 10/07/2018 SHIREEN AGARWAL Ot Z79.899 OTHER HOSPITAL SECURITY OFFICER (CURRENT) DRUG THERAPY 10/07/2018 MACIEL WELCH APRN [...] 2 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 10/07/2018 BRIAN KHOURY, JAMES R Ot K74.6 0 UNSPECIFIED CIRRHOSIS OF LIVER 10/07/2018 BRIAN KHOURY, JAMES R Ot N18.9 CHRONIC KIDNEY DISEASE, UNSPECIFIED 10/07/2018 BRIAN KHOURY, JAMES R Ot E03.9 HYPOTHYROIDISM, UNSPECIFIED 10/07/2018 KRUNAL KHOURY PHD, LULA S Ot I50.32 CHRONIC DIASTOLIC (CONGESTIVE) HEART KATY 10/07/2018 KRUNAL KHOURY PHD, LULA S Ot E03.9 HYPOTHYROIDISM, UNSPECIFIED 10/07/2018 KRUNAL KHOURY PHD, LULA S Ot I50.32 CHRONIC DIASTOLIC (CONGESTIVE) HEART KATY 10/07/2018 KRUNAL KHOURY PHD, LULA S Ot I50.32 CHRONIC DIASTOLIC (CONGESTIVE) HEART KATY 10/07/2018 SHIREEN AGARWAL Ot D50.0 IRON DEFICIENCY ANEMIA SECONDARY TO BLOO 10/07/2018 SHIREEN AGARWAL Ot E03.9 HYPOTHYROIDISM, UNSPECIFIED 10/07/2018 SHIREEN AGARWAL Ot 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 10/07/2018 SHIREEN AGARWAL Ot E53.8 DEFICIENCY OF OTHER SPECIFIED B GROUP 10/07/2018 SHIREEN AGARWAL Ot I12.9 HYPERTENSIVE CHRONIC KIDNEY DISEASE W ST 10/07/2018 SHIREEN AGARWAL Ot 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 10/07/2018 SHIREEN AGARWAL Ot I48.91 UNSPECIFIED ATRIAL FIBRILLATION 10/07/2018 SHIREEN AGARWAL Ot K31.819 ANGIODYSPLASIA OF STOMACH AND DUODENUM W 10/07/2018 SHIREEN AGARWAL Ot K74.60 UNSPECIFIED CIRRHOSIS OF LIVER 10/07/2018 ANY SHIREEN N Ot N18.3 CHRONIC KIDNEY DISEASE, STAGE 3 (MODERAT 10/07/2018 ANYSHIREEN N Ot Z79.899 OTHER HALFWAY (CURRENT) DRUG THERAPY 10/07/2018 ANYSHIREEN N Ot D50.0 IRON DEFICIENCY ANEMIA SECONDARY TO BLOO 10/07/2018 ANYSHIREEN N Ot E03.9 HYPOTHYROIDISM, UNSPECIFIED 10/07/2018 ANYSHIREEN N Ot 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 10/07/2018 ANYSHIREEN N Ot E53.8 DEFICIENCY OF OTHER SPECIFIED B GROUP 10/07/2018 ANYJJAN N Ot I12.9 HYPERTENSIVE CHRONIC KIDNEY DISEASE W ST 10/07/2018 ANYSHIREEN N Ot 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 10/07/2018 ANYSHIREEN N Ot I48.91 UNSPECIFIED ATRIAL FIBRILLATION 10/07/2018 ANYSHIREEN N Ot K31.819 ANGIODYSPLASIA OF STOMACH AND DUODENUM W 10/07/2018 ANYSHIREEN N Ot K74.60 UNSPECIFIED CIRRHOSIS OF LIVER 10/07/2018 ANYSHIREEN N Ot N18.3 CHRONIC KIDNEY DISEASE, STAGE 3 (MODERAT 10/07/2018 SHIREEN AGARWAL N Ot Z79.899 OTHER HALFWAY (CURRENT) DRUG THERAPY 10/07/2018 SHIREEN AGARWAL N Ot D50.0 IRON DEFICIENCY ANEMIA SECONDARY TO BLOO 10/07/2018 SHIREEN AGARWAL N Ot E03.9 HYPOTHYROIDISM, UNSPECIFIED 10/07/2018 ANYSHIREEN N Ot 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 10/07/2018 ANYSHIREEN N Ot E53.8 DEFICIENCY OF OTHER SPECIFIED B GROUP 10/07/2018 ANYSHIREEN N Ot I12.9 HYPERTENSIVE CHRONIC KIDNEY DISEASE W ST 10/07/2018 ANYSHIREEN N Ot 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 10/07/2018 ANYSHIREEN N Ot I48.91 UNSPECIFIED ATRIAL FIBRILLATION 10/07/2018 ANYSHIREEN N Ot K31.819 ANGIODYSPLASIA OF STOMACH AND DUODENUM W 10/07/2018 ANYSHIREEN N Ot K74.60 UNSPECIFIED CIRRHOSIS OF LIVER 10/07/2018 ANY SHIREEN N Ot N18.3 CHRONIC KIDNEY DISEASE, STAGE 3 (MODERAT 10/07/2018 ANYSHIREEN N Ot Z79.899 OTHER HOSPITAL SECURITY OFFICER (CURRENT) DRUG THERAPY 10/07/2018 ANYSHIREEN N Ot D50.0 IRON DEFICIENCY ANEMIA SECONDARY TO BLOO 10/07/2018 SHIREEN AGARWAL N Ot E03.9 HYPOTHYROIDISM, UNSPECIFIED 10/07/2018 ANYSHIREEN N Ot 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 10/07/2018 ANYSHIREEN N Ot E53.8 DEFICIENCY OF OTHER SPECIFIED B GROUP 10/07/2018 ANYSHIREEN N Ot I12.9 HYPERTENSIVE CHRONIC KIDNEY DISEASE W ST 10/07/2018 ANYSHIREEN N Ot 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 10/07/2018 ANYSHIREEN N Ot I48.91 UNSPECIFIED ATRIAL FIBRILLATION 10/07/2018 SHIREEN AGARWAL N Ot K31.819 ANGIODYSPLASIA OF STOMACH AND DUODENUM W 10/07/2018 SHIREEN AGARWAL N Ot K74.60 UNSPECIFIED CIRRHOSIS OF LIVER 10/07/2018 ANYSHIREEN N Ot N18.3 CHRONIC KIDNEY DISEASE, STAGE 3 (MODERAT 10/07/2018 SHIREEN AGARWAL Ot Z79.899 OTHER HALFWAY (CURRENT) DRUG THERAPY 10/07/2018 SHIREEN AGARWAL N Ot D50.0 IRON DEFICIENCY ANEMIA SECONDARY TO BLOO 10/07/2018 SHIREEN AGARWAL Ot E03.9 HYPOTHYROIDISM, UNSPECIFIED 10/07/2018 ANYSHIREEN N Ot 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 10/07/2018 ANYSHIREEN N Ot E53.8 DEFICIENCY OF OTHER SPECIFIED B GROUP 10/07/2018 ANYSHIREEN N Ot I12.9 HYPERTENSIVE CHRONIC KIDNEY DISEASE W ST 10/07/2018 ANYSHIREEN N Ot 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 10/07/2018 ANYSHIREEN N Ot I48.91 UNSPECIFIED ATRIAL FIBRILLATION 10/07/2018 ANYSHIREEN N Ot K31.819 ANGIODYSPLASIA OF STOMACH AND DUODENUM W 10/07/2018 SHIREEN AGARWAL N Ot K74.60 UNSPECIFIED CIRRHOSIS OF LIVER 10/07/2018 SHIREEN AGARWAL N Ot N18.3 CHRONIC KIDNEY DISEASE, STAGE 3 (MODERAT 10/07/2018 SHIREEN AGARWAL N Ot Z79.899 OTHER HALFWAY (CURRENT) DRUG THERAPY 10/08/2018 KRUNAL KHOURY PHD, LULA Clement Ot E03.9 HYPOTHYROIDISM, UNSPECIFIED 10/08/2018 KRUNAL KHOURY PHD, LULA Clement Ot I50.32 CHRONIC DIASTOLIC (CONGESTIVE) HEART KATY 10/08/2018 SHIRENE AGARWAL N Ot D50.0 IRON DEFICIENCY ANEMIA SECONDARY TO BLOO 10/08/2018 ANYSHIREEN N Ot E03.9 HYPOTHYROIDISM, UNSPECIFIED 10/08/2018 ANY, BOBBLU N Ot 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 10/08/2018 SHIREEN AGARWAL N Ot E53.8 DEFICIENCY OF OTHER SPECIFIED B GROUP 10/08/2018 SHIREEN AGARWAL N Ot I12.9 HYPERTENSIVE CHRONIC KIDNEY DISEASE W ST 10/08/2018 SHIREEN AGARWAL N Ot 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 10/08/2018 SHIREEN AGARWAL N Ot I48.91 UNSPECIFIED ATRIAL FIBRILLATION 10/08/2018 SHIREEN AGARWAL N Ot K31.819 ANGIODYSPLASIA OF STOMACH AND DUODENUM W 10/08/2018 SHIREEN AGARWAL N Ot K74.60 UNSPECIFIED CIRRHOSIS OF LIVER 10/08/2018 SHIREEN AGARWAL N Ot N18.3 CHRONIC KIDNEY DISEASE, STAGE 3 (MODERAT 10/08/2018 SHIREEN AGARWAL N Ot Z79.899 OTHER HOSPITAL SECURITY OFFICER (CURRENT) DRUG THERAPY 10/08/2018 SHIREEN AGARWAL N Ot D50.0 IRON DEFICIENCY ANEMIA SECONDARY TO BLOO 10/08/2018 ANYSHIREEN N Ot E03.9 HYPOTHYROIDISM, UNSPECIFIED 10/08/2018 ANYSHIREEN N Ot 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 10/08/2018 ANYSHIREEN N Ot E53.8 DEFICIENCY OF OTHER SPECIFIED B GROUP 10/08/2018 ANYJJAN N Ot I12.9 HYPERTENSIVE CHRONIC KIDNEY DISEASE W ST 10/08/2018 ANYSHIREEN N Ot 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 10/08/2018 SHIREEN AGARWAL N Ot I48.91 UNSPECIFIED ATRIAL FIBRILLATION 10/08/2018 ANY SHIREEN N Ot K31.819 ANGIODYSPLASIA OF STOMACH AND DUODENUM W 10/08/2018 SHIREEN AGARWAL N Ot K74.60 UNSPECIFIED CIRRHOSIS OF LIVER 10/08/2018 ANY BOBBLU N Ot N18.3 CHRONIC KIDNEY DISEASE, STAGE 3 (MODERAT 10/08/2018 ANY SHIREEN N Ot Z79.899 OTHER HALFWAY (CURRENT) DRUG THERAPY 10/08/2018 ANY BOBAN N Ot D50.0 IRON DEFICIENCY ANEMIA SECONDARY TO BLOO 10/08/2018 ANY, BOBAN N Ot E03.9 HYPOTHYROIDISM, UNSPECIFIED 10/08/2018 ANY, BOBAN N Ot 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 10/08/2018 ANYSHIREEN N Ot E53.8 DEFICIENCY OF OTHER SPECIFIED B GROUP 10/08/2018 ANY BOBBLU N Ot I12.9 HYPERTENSIVE CHRONIC KIDNEY DISEASE W ST 10/08/2018 ANYSHIREEN N Ot 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 10/08/2018 SHIREEN AGARWAL N Ot I48.91 UNSPECIFIED ATRIAL FIBRILLATION 10/08/2018 ANYSHIREEN N Ot K31.819 ANGIODYSPLASIA OF STOMACH AND DUODENUM W 10/08/2018 ANY BOBBLU N Ot K74.60 UNSPECIFIED CIRRHOSIS OF LIVER 10/08/2018 ANYJJBLU N Ot N18.3 CHRONIC KIDNEY DISEASE, STAGE 3 (MODERAT 10/08/2018 ANYSHIREEN N Ot Z79.899 OTHER HOSPITAL SECURITY OFFICER (CURRENT) DRUG THERAPY 10/14/2018 KRUNAL KHOURY PHD, LULA Clement Ot K31.819 ANGIODYSPLASIA OF STOMACH AND DUODENUM W 10/22/2018 ANYSHIREEN N Ot D50.0 IRON DEFICIENCY ANEMIA SECONDARY TO BLOO 10/22/2018 ANY, BOBAN N Ot E03.9 HYPOTHYROIDISM, UNSPECIFIED 10/22/2018 ANY, BOBAN N Ot 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 10/22/2018 ANYSHIREEN N Ot E53.8 DEFICIENCY OF OTHER SPECIFIED B GROUP 10/22/2018 ANY, BOBAN N Ot I12.9 HYPERTENSIVE CHRONIC KIDNEY DISEASE W ST 10/22/2018 SHIREEN AGARWAL Solange Ot 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 10/22/2018 SHIREEN AGARWAL Solange Ot I48.91 UNSPECIFIED ATRIAL FIBRILLATION 10/22/2018 SHIREEN AGARWAL Ot K31.819 ANGIODYSPLASIA OF STOMACH AND DUODENUM W 10/22/2018 SHIREEN AGARWAL Solange Ot K74.60 UNSPECIFIED CIRRHOSIS OF LIVER 10/22/2018 SHIREEN AGARWAL Ot N18.3 CHRONIC KIDNEY DISEASE, STAGE 3 (MODERAT 10/22/2018 SHIREEN AGARWAL Ot Z79.899 OTHER HOSPITAL SECURITY OFFICER (CURRENT) DRUG THERAPY 10/25/2018 KRUNAL KHOURY PHD, LULA Clement Ot D50.0 IRON DEFICIENCY ANEMIA SECONDARY TO BLOO 10/25/2018 KRUNAL KHOURY PHD, LULA Clement Ot E03.9 HYPOTHYROIDISM, UNSPECIFIED 10/25/2018 KRUNAL KHOURY PHD, LULA Clement Ot 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 10/25/2018 KRUNAL KHOURY PHD, LULA Clement Ot E53.8 DEFICIENCY OF OTHER SPECIFIED B GROUP 10/25/2018 KRUNAL KHOURY PHD, LULA Clement Ot I12.9 HYPERTENSIVE CHRONIC KIDNEY DISEASE W ST 10/25/2018 KRUNAL KHOURY PHD, LULA Clement Ot 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 10/25/2018 KRUNAL KHOURY PHD, LULA Clement Ot I48.91 UNSPECIFIED ATRIAL FIBRILLATION 10/25/2018 KRUNAL KHOURY PHD, LULA Clement Ot K31.819 ANGIODYSPLASIA OF STOMACH AND DUODENUM W 10/25/2018 KRUNAL KHOURY PHD, LULA Clement Ot K74.60 UNSPECIFIED CIRRHOSIS OF LIVER 10/25/2018 KRUNAL KHOURY PHD, LULA Clement Ot N18.3 CHRONIC KIDNEY DISEASE, STAGE 3 (MODERAT 10/25/2018 KRUNAL KHOURY PHD, LULA Clement Ot Z79.899 OTHER HALFWAY (CURRENT) DRUG THERAPY 11/02/2018 KRUNAL KHOURY PHD, LULA Clement Ot K31.819 ANGIODYSPLASIA OF STOMACH AND DUODENUM W 11/06/2018 MICHELLE GARCIA DO Ot A41.9 SEPSIS, UNSPECIFIED ORGANISM 11/06/2018 MICHELLE GARCIA DO Ot D50.0 IRON DEFICIENCY ANEMIA SECONDARY TO BLOO 11/06/2018 MICHELLE GARCIA DO Ot D61.81 8 OTHER PANCYTOPENIA 11/06/2018 MICHELLE GARCIA DO Ot E03.9 HYPOTHYROIDISM, UNSPECIFIED 11/06/2018 EMILIANO GARCIA [...] DO Ot 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 11/06/2018 MICHELLE GARCIA DO Ot I25.2 OLD MYOCARDIAL INFARCTION 11/06/2018 MICHELLE GARCIA DO Ot I48.0 PAROXYSMAL ATRIAL FIBRILLATION 11/06/2018 MICHELLE GARCIA DO Ot I50.32 CHRONIC DIASTOLIC (CONGESTIVE) HEART KATY 11/06/2018 EMILIANO GARCIA DOI Ot 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 11/06/2018 MICHELLE GARCIA DO Ot I87.2 VENOUS INSUFFICIENCY (CHRONIC) (PERIPHER 11/06/2018 MICHELLE GARCIA DO Ot J18.9 PNEUMONIA, UNSPECIFIED ORGANISM 11/06/2018 EMILIANO [...] LOSS 11/06/2018 MICHELLE GARCIA DO Ot Z79.4 HALFWAY (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 OF INSULIN 11/06/2018 MICHELLE GARCIA DO Ot Z95.1 PRESENCE OF AORTOCORONARY BYPASS GRAFT 11/06/2018 MICHELLE GARCIA DO Ot Z95.5 PRESENCE OF CORONARY ANGIOPLASTY IMPLANT 11/06/2018 MICHELLE GARCIA DO Ot Z99.81 DEPENDENCE ON SUPPLEMENTAL OXYGEN 11/06/2018 EMILIANO GARCIA DOI Ot A41.9 SEPSIS, UNSPECIFIED ORGANISM 11/06/2018 MICHELLE [...] DO Ot 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 11/06/2018 EMILIANO GARCIA DOI Ot I25.2 OLD MYOCARDIAL INFARCTION 11/06/2018 MICHELLE GARCIA DO Ot I48.0 PAROXYSMAL ATRIAL FIBRILLATION 11/06/2018 EMILIANO [...] DO Ot R63.4 ABNORMAL WEIGHT LOSS 11/06/2018 EMILIANO GARCIA DOI Ot R65.21 SEVERE SEPSIS WITH SEPTIC SHOCK 11/06/2018 EMILIANO GARCIA DOI Ot Z79.4 HALFWAY (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 OF INSULIN 11/06/2018 MICHELLE GARCIA [...] 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 11/10/2018 SHIREEN AGARWAL Ot E53.8 DEFICIENCY OF OTHER SPECIFIED B GROUP 11/10/2018 SHIREEN AGARWAL Ot I12.9 HYPERTENSIVE CHRONIC KIDNEY DISEASE W ST 11/10/2018 SHIREEN AGARWAL Ot 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 11/10/2018 ANY, BOBAN N Ot I48.91 UNSPECIFIED ATRIAL FIBRILLATION 11/10/2018 SHIREEN AGARWAL N Ot K31.819 ANGIODYSPLASIA OF STOMACH AND DUODENUM W 11/10/2018 SHIREEN AGARWAL N Ot K74.60 UNSPECIFIED CIRRHOSIS OF LIVER 11/10/2018 SHIREEN AGARWAL N Ot N18.3 CHRONIC KIDNEY DISEASE, STAGE 3 (MODERAT 11/10/2018 SHIREEN AGARWAL N Ot Z79.899 OTHER HALFWAY (CURRENT) DRUG THERAPY 11/16/2018 SHIREEN AGARWAL N Ot D50.0 IRON DEFICIENCY ANEMIA SECONDARY TO BLOO 11/16/2018 SHIREEN AGARWAL N Ot E03.9 HYPOTHYROIDISM, UNSPECIFIED 11/16/2018 SHIREEN AGARWAL N Ot 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899 OTHER HOSPITAL SECURITY OFFICER (CURRENT) DRUG THERAPY 11/24/2018 KURNAL KHOURY PHD, LULA Clement Ot D50.0 IRON DEFICIENCY ANEMIA SECONDARY TO BLOO 11/24/2018 KRUNAL KHOURY PHD, LULA Clement Ot E03.9 HYPOTHYROIDISM, UNSPECIFIED 11/24/2018 KRUNAL KHOURY PHD, LULA Clement Ot 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 11/24/2018 KRUNAL KHOURY PHD, LULA Clement Ot E53.8 DEFICIENCY OF OTHER SPECIFIED B GROUP 11/24/2018 KRUNAL KHOURY PHD, LULA Clement Ot I12.9 HYPERTENSIVE CHRONIC KIDNEY DISEASE W ST 11/24/2018 KRUNAL KHOURY PHD, LULA S Ot 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 11/24/2018 KRUNAL KHOURY PHD, LULA Clement Ot I48.91 UNSPECIFIED ATRIAL FIBRILLATION 11/24/2018 KRUNAL KHOURY PHD, LULA Clement Ot K31.819 ANGIODYSPLASIA OF STOMACH AND DUODENUM W 11/24/2018 KRUNAL KHOURY PHD, LULA Clement Ot K74.60 UNSPECIFIED CIRRHOSIS OF LIVER 11/24/2018 KRUNAL KHOURY PHD, LULA Clement Ot N18.3 CHRONIC KIDNEY DISEASE, STAGE 3 (MODERAT 11/24/2018 KRUNAL KHOURY PHD, LULA Clement Ot Z79.899 OTHER HALFWAY (CURRENT) DRUG THERAPY 11/29/2018 SHIREEN AGARWAL Ot D50.0 IRON DEFICIENCY ANEMIA SECONDARY TO BLOO 11/29/2018 SHIREEN AGARWAL Ot E03.9 HYPOTHYROIDISM, UNSPECIFIED 11/29/2018 SHIREEN AGARWAL Ot 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 11/29/2018 SHIREEN AGARWAL Ot E53.8 DEFICIENCY OF OTHER SPECIFIED B GROUP 11/29/2018 SHIREEN AGARWAL Ot I12.9 HYPERTENSIVE CHRONIC KIDNEY DISEASE W ST 11/29/2018 SHIREEN AGARWAL Ot 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 11/29/2018 SHIREEN AGARWAL Ot I48.91 UNSPECIFIED ATRIAL FIBRILLATION 11/29/2018 SHIREEN AGARWAL Ot K31.819 ANGIODYSPLASIA OF STOMACH AND DUODENUM W 11/29/2018 SHIREEN AGARWAL Ot K74.60 UNSPECIFIED CIRRHOSIS OF LIVER 11/29/2018 SHIREEN AGARWAL Ot N18.3 CHRONIC KIDNEY DISEASE, STAGE 3 (MODERAT 11/29/2018 SHIREEN AGARWAL Ot Z79.899 OTHER HALFWAY (CURRENT) DRUG THERAPY 12/13/2018 KRUNAL KHOURY PHD, LULA Clement Ot D50.0 IRON DEFICIENCY ANEMIA SECONDARY TO BLOO 12/13/2018 KRUNAL KHOURY PHD, LULA Clement Ot E03.9 HYPOTHYROIDISM, UNSPECIFIED 12/13/2018 KRUNAL KHOURY PHD, LULA Clement Ot 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 12/13/2018 KRUNAL KHOURY PHD, LULA Clement Ot E53.8 DEFICIENCY OF OTHER SPECIFIED B GROUP 12/13/2018 KRUNAL KHOURY PHD, LULA Clement Ot I12.9 HYPERTENSIVE CHRONIC KIDNEY DISEASE W ST 12/13/2018 KRUNAL KHOURY PHD, LULA Clement Ot 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 12/13/2018 KRUNAL KHOURY PHD, LULA Clement Ot I48.91 UNSPECIFIED ATRIAL FIBRILLATION 12/13/2018 KRUNAL KHOURY PHD, LULA Clement Ot K31.819 ANGIODYSPLASIA OF STOMACH AND DUODENUM W 12/13/2018 KRUNAL KHOURY PHD, LULA Clement Ot K74.60 UNSPECIFIED CIRRHOSIS OF LIVER 12/13/2018 KRUNAL KHOURY PHD, LULA Clement Ot N18.3 CHRONIC KIDNEY DISEASE, STAGE 3 (MODERAT 12/13/2018 KRUNAL KHOURY PHD, LULA Clement Ot Z79.899 OTHER HOSPITAL SECURITY OFFICER (CURRENT) DRUG THERAPY 12/28/2018 EMILIANO GARCIA DOI Ot D64.9 ANEMIA, UNSPECIFIED 12/28/2018 EMILIANO GARCIA DOI Ot E11.01 TYPE 2 DIABETES MELLITUS WITH HYPEROSMOL 12/28/2018 EMILIANO GARCIA DOI Ot E11.65 TYPE 2 DIABETES MELLITUS WITH HYPERGLYCE 12/28/2018 EMILIANO GARCIA DOI Ot E78.5 HYPERLIPIDEMIA, UNSPECIFIED 12/28/2018 EMILIANO GARCIA DOI Ot E86.0 DEHYDRATION 12/28/2018 RADHA WOOD MICHELLE Ot E87.1 HYPO-OSMOLALITY AND HYPONATREMIA 12/28/2018 RADHA WOOD MICHELLE Ot E87.2 ACIDOSIS 12/28/2018 RADHA WOOD MICHELLE Ot F41.9 ANXIETY DISORDER, UNSPECIFIED 12/28/2018 RADHA WOOD MICHELLE Ot G47.30 SLEEP APNEA, UNSPECIFIED 12/28/2018 RADHA WOOD MICHELLE Ot 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 12/28/2018 RADHA WOOD MICHELLE Ot 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 12/28/2018 EMILIANO GARCIA DOI Ot I25.2 OLD MYOCARDIAL INFARCTION 12/28/2018 RADHA WOOD MICHELLE Ot I48.0 PAROXYSMAL ATRIAL FIBRILLATION 12/28/2018 EMILIANO GARCIA DOI Ot I50.9 HEART FAILURE, UNSPECIFIED 12/28/2018 EMILIANO GARCIA DOI Ot I95.9 HYPOTENSION, UNSPECIFIED 12/28/2018 MICHELLE GARCIA DO Ot K21.9 GASTRO-ESOPHAGEAL REFLUX DISEASE WITHOUT 12/28/2018 MICHELLE GARCIA DO Ot K31.81 9 ANGIODYSPLASIA OF STOMACH AND DUODENUM W 12/28/2018 MICHELLE GARCIA DO Ot N17.9 ACUTE KIDNEY FAILURE, UNSPECIFIED 12/28/2018 MICHELLE GARCIA DO Ot N18.9 CHRONIC KIDNEY DISEASE, UNSPECIFIED 12/28/2018 MICHELLE GARCIA DO Ot N30.00 ACUTE CYSTITIS WITHOUT HEMATURIA 12/28/2018 MICHELLE GARCIA DO Ot Z79.4 HALFWAY (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 OF INSULIN 12/28/2018 MICHELLE GARCIA [...] 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 01/05/2019 SHIREEN AGARWAL Ot E53.8 DEFICIENCY OF OTHER SPECIFIED B GROUP 01/05/2019 SHIREEN AGARWAL Ot I12.9 HYPERTENSIVE CHRONIC KIDNEY DISEASE W ST 01/05/2019 SHIREEN AGARWAL Ot 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 01/05/2019 SHIREEN AGARWAL Ot I48.91 UNSPECIFIED ATRIAL FIBRILLATION 01/05/2019 SHIREEN AGARWAL Ot K31.819 ANGIODYSPLASIA OF STOMACH AND DUODENUM W 01/05/2019 SHIREEN AGARWAL Ot K74.60 UNSPECIFIED CIRRHOSIS OF LIVER 01/05/2019 SHIREEN AGARWAL Ot N18.3 CHRONIC KIDNEY DISEASE, STAGE 3 (MODERAT 01/05/2019 SHIREEN AGARWAL Ot Z79.899 OTHER HALFWAY (CURRENT) DRUG THERAPY 01/06/2019 SHIREEN AGARWAL Ot D50.0 IRON DEFICIENCY ANEMIA SECONDARY TO BLOO 01/06/2019 SHIREEN AGARWAL N Ot E03.9 HYPOTHYROIDISM, UNSPECIFIED 01/06/2019 SHIREEN AGARWAL N Ot 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 01/06/2019 SHIREEN AGARWAL N Ot E53.8 DEFICIENCY OF OTHER SPECIFIED B GROUP 01/06/2019 SHIREEN AGARWAL N Ot I12.9 HYPERTENSIVE CHRONIC KIDNEY DISEASE W ST 01/06/2019 SHIREEN AGARWAL N Ot 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 01/06/2019 SHIREEN AGARWAL N Ot I48.91 UNSPECIFIED ATRIAL FIBRILLATION 01/06/2019 SHIREEN AGARWAL N Ot K31.819 ANGIODYSPLASIA OF STOMACH AND DUODENUM W 01/06/2019 SHIREEN AGARWAL N Ot K74.60 UNSPECIFIED CIRRHOSIS OF LIVER 01/06/2019 SHIREEN AGARWAL N Ot N18.3 CHRONIC KIDNEY DISEASE, STAGE 3 (MODERAT 01/06/2019 SHIREEN AGARWAL N Ot Z79.899 OTHER HOSPITAL SECURITY OFFICER (CURRENT) DRUG THERAPY 01/10/2019 MACIEL WELCH HAND TOOL LAPPER Ot M79.89 OTHER SPECIFIED SOFT TISSUE DISORDERS 01/10/2019 SHIREEN AGARWAL N Ot D64.9 ANEMIA, UNSPECIFIED 01/10/2019 SHIREEN AGARWAL N Ot E11.9 TYPE 2 DIABETES MELLITUS WITHOUT COMPLIC 01/10/2019 SHIREEN AGARWAL N Ot K74.60 UNSPECIFIED CIRRHOSIS OF LIVER 01/10/2019 SHIREEN AGARWAL N Ot N18.9 CHRONIC KIDNEY DISEASE, UNSPECIFIED 01/10/2019 BIRAN KHOURY, JAMES Champion Ot D64.9 ANEMIA, UNSPECIFIED 01/10/2019 BRIAN KHOURY, JAMES Champion Ot E11.2 2 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 01/10/2019 BRIAN KHOURY, JAMES Champion Ot K74.6 0 UNSPECIFIED CIRRHOSIS OF LIVER 01/10/2019 BRIAN KHOURY, JAMES Champion Ot N18.9 CHRONIC KIDNEY DISEASE, UNSPECIFIED 01/10/2019 BRIAN KOHURY, JAMES Champion Ot E03.9 HYPOTHYROIDISM, UNSPECIFIED 01/10/2019 KRUNAL KHOURY PHD, LULA Clement Ot I50.32 CHRONIC DIASTOLIC (CONGESTIVE) HEART KATY 01/10/2019 KRUNAL KHOURY PHD, LULA Clement Ot E03.9 HYPOTHYROIDISM, UNSPECIFIED 01/10/2019 KRUNAL KHOURY PHD, LULA Clement Ot I50.32 CHRONIC DIASTOLIC (CONGESTIVE) HEART KATY 01/10/2019 KRUNAL KHOURY PHD, LULA Clement Ot I50.32 CHRONIC DIASTOLIC (CONGESTIVE) HEART KATY 01/10/2019 KRUNAL KHOUYR PHD, LULA Clement Ot K31.819 ANGIODYSPLASIA OF STOMACH AND DUODENUM W 01/10/2019 KRUNAL KHOURY PHD, LULA Clement Ot D50.0 IRON DEFICIENCY ANEMIA SECONDARY TO BLOO 01/10/2019 KRUNAL KHOURY PHD, LULA Clement Ot E03.9 HYPOTHYROIDISM, UNSPECIFIED 01/10/2019 KRUNAL KHOURY PHD, LULA Clement Ot 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 01/10/2019 KRUNAL KHOURY PHD, LULA Clement Ot E53.8 DEFICIENCY OF OTHER SPECIFIED B GROUP 01/10/2019 KRUNAL KHOURY PHD, LULA Clement Ot I12.9 HYPERTENSIVE CHRONIC KIDNEY DISEASE W ST 01/10/2019 KRUNAL KHOURY PHD, LULA Clement Ot 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 01/10/2019 KRUNAL KHOURY PHD, LULA Clement Ot I48.91 UNSPECIFIED ATRIAL FIBRILLATION 01/10/2019 KRUNAL KHOURY PHD, LULA Clement Ot K31.819 ANGIODYSPLASIA OF STOMACH AND DUODENUM W 01/10/2019 KRUNAL KHOURY PHD, LULA Clement Ot K74.60 UNSPECIFIED CIRRHOSIS OF LIVER 01/10/2019 KRUNAL KHOURY PHD, LULA Clement Ot N18.3 CHRONIC KIDNEY DISEASE, STAGE 3 (MODERAT 01/10/2019 KRUNAL KHOURY PHD, LULA Clement Ot Z79.899 OTHER HOSPITAL SECURITY OFFICER (CURRENT) DRUG THERAPY 01/10/2019 SHIREEN AGARWAL Ot D50.0 IRON DEFICIENCY ANEMIA SECONDARY TO BLOO 01/10/2019 SHIREEN AGARWAL Ot E03.9 HYPOTHYROIDISM, UNSPECIFIED 01/10/2019 SHIREEN AGARWAL Ot 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 01/10/2019 SHIREEN AGARWAL Ot E53.8 DEFICIENCY OF OTHER SPECIFIED B GROUP 01/10/2019 SHIREEN AGARWAL Ot I12.9 HYPERTENSIVE CHRONIC KIDNEY DISEASE W ST 01/10/2019 SHIREEN AGARWAL Ot 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 01/10/2019 SHIREEN AGARWAL Solange Ot I48.91 UNSPECIFIED ATRIAL FIBRILLATION 01/10/2019 SHIREEN AGARWAL Solange Ot K31.819 ANGIODYSPLASIA OF STOMACH AND DUODENUM W 01/10/2019 SHIREEN AGARWAL Solange Ot K74.60 UNSPECIFIED CIRRHOSIS OF LIVER 01/10/2019 SHIREEN AGARWAL Solange Ot N18.3 CHRONIC KIDNEY DISEASE, STAGE 3 (MODERAT 01/10/2019 SHIREEN AGARWAL Solange Ot Z79.899 OTHER HALFWAY (CURRENT) DRUG THERAPY 01/16/2019 KRUNAL KHOURY PHD, LULA Clement Ot D50.0 IRON DEFICIENCY ANEMIA SECONDARY TO BLOO 01/16/2019 KRUNAL KHOURY PHD, LULA Clement Ot E03.9 HYPOTHYROIDISM, UNSPECIFIED 01/16/2019 KRUNAL KHOURY PHD, LULA Clement Ot 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 01/16/2019 KRUNAL KHOURY PHD, LULA Clement Ot E53.8 DEFICIENCY OF OTHER SPECIFIED B GROUP 01/16/2019 KRUNAL KHOURY PHD, LULA Clement Ot I12.9 HYPERTENSIVE CHRONIC KIDNEY DISEASE W ST 01/16/2019 KRUNAL KHOURY PHD, LULA Clement Ot 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 01/16/2019 KRUNAL KHOURY PHD, LULA Clement Ot I48.91 UNSPECIFIED ATRIAL FIBRILLATION 01/16/2019 KRUNAL KHOURY PHD, LULA Clement Ot K31.819 ANGIODYSPLASIA OF STOMACH AND DUODENUM W 01/16/2019 KRUNAL KHOURY PHD, LULA Clement Ot K74.60 UNSPECIFIED CIRRHOSIS OF LIVER 01/16/2019 KRUNAL KHOURY PHD, LULA Clement Ot N18.3 CHRONIC KIDNEY DISEASE, STAGE 3 (MODERAT 01/16/2019 KRUNAL KHOURY PHD, LULA Clement Ot Z79.899 OTHER HALFWAY (CURRENT) DRUG THERAPY 01/23/2019 KRUNAL KHOURY PHD, LULA Clement Ot D50.0 IRON DEFICIENCY ANEMIA SECONDARY TO BLOO 01/23/2019 KRUNAL KHOURY PHD, LULA Clement Ot E03.9 HYPOTHYROIDISM, UNSPECIFIED 01/23/2019 KRUNAL KHOURY PHD, LULA Clement Ot 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 01/23/2019 KRUNAL KHOURY PHD, LULA S Ot E53.8 DEFICIENCY OF OTHER SPECIFIED B GROUP 01/23/2019 KRUNAL KHOURY PHD, LULA Clement Ot I12.9 HYPERTENSIVE CHRONIC KIDNEY DISEASE W ST 01/23/2019 KRUNAL KHOURY PHD, LULA Clement Ot 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 01/23/2019 KRUNAL KHOURY PHD, LULA Clement Ot I48.91 UNSPECIFIED ATRIAL FIBRILLATION 01/23/2019 KRUNAL KHOURY PHD, LULA Clement Ot K31.819 ANGIODYSPLASIA OF STOMACH AND DUODENUM W 01/23/2019 KRUNAL KHOURY PHD, LULA Clement Ot K74.60 UNSPECIFIED CIRRHOSIS OF LIVER 01/23/2019 KRUNAL KHOURY PHD, LULA Clement Ot N18.3 CHRONIC KIDNEY DISEASE, STAGE 3 (MODERAT 01/23/2019 KRUNAL KHOURY PHD, LULA Clement Ot Z79.899 OTHER HALFWAY (CURRENT) DRUG THERAPY 02/23/2019 SHIREEN AGARWAL Ot D50.0 IRON DEFICIENCY ANEMIA SECONDARY TO BLOO 02/23/2019 SHIREEN AGARWAL Ot E03.9 HYPOTHYROIDISM, UNSPECIFIED 02/23/2019 SHIREEN AGARWAL Ot 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 02/23/2019 SHIREEN AGARWAL Ot E53.8 DEFICIENCY OF OTHER SPECIFIED B GROUP 02/23/2019 SHIREEN AGARWAL Ot I12.9 HYPERTENSIVE CHRONIC KIDNEY DISEASE W ST 02/23/2019 SHIREEN AGARWAL Ot 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 02/23/2019 SHIREEN AGARWAL Ot I48.91 UNSPECIFIED ATRIAL FIBRILLATION 02/23/2019 SIHREEN AGARWAL Ot K31.819 ANGIODYSPLASIA OF STOMACH AND DUODENUM W 02/23/2019 SHIREEN AGARWAL Ot K74.60 UNSPECIFIED CIRRHOSIS OF LIVER 02/23/2019 SHIREEN AGARWAL Ot N18.3 CHRONIC KIDNEY DISEASE, STAGE 3 (MODERAT 02/23/2019 SHIREEN AGARWAL Ot Z79.899 OTHER HOSPITAL SECURITY OFFICER (CURRENT) DRUG THERAPY 02/24/2019 KRUNAL KHOURY PHD, LULA Clement Ot D50.0 IRON DEFICIENCY ANEMIA SECONDARY TO BLOO 02/24/2019 KRUNAL KHOURY PHD, LULA Clement Ot E03.9 HYPOTHYROIDISM, UNSPECIFIED 02/24/2019 KRUNAL KHOURY PHD, LULA Clement Ot 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 02/24/2019 KRUNAL KHOURY PHD, LULA Clement Ot E53.8 DEFICIENCY OF OTHER SPECIFIED B GROUP 02/24/2019 KRUNAL KHOURY PHD, LULA Clement Ot I12.9 HYPERTENSIVE CHRONIC KIDNEY DISEASE W ST 02/24/2019 KRUNAL KHOURY PHD, LULA Clement Ot 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 02/24/2019 KRUNAL KHOURY PHD, LULA Clement Ot I48.91 UNSPECIFIED ATRIAL FIBRILLATION 02/24/2019 KRUNAL KHOURY PHD, LULA Clement Ot K31.819 ANGIODYSPLASIA OF STOMACH AND DUODENUM W 02/24/2019 KRUNAL KHOURY PHD, LULA Clement Ot K74.60 UNSPECIFIED CIRRHOSIS OF LIVER 02/24/2019 KRUNAL KHOURY PHD, LULA Clement Ot N18.3 CHRONIC KIDNEY DISEASE, STAGE 3 (MODERAT 02/24/2019 KRUNAL KHOURY PHD, LULA Clement Ot Z79.899 OTHER HOSPITAL SECURITY OFFICER (CURRENT) DRUG THERAPY 03/11/2019 SHIREEN AGARWAL Ot D50.0 IRON DEFICIENCY ANEMIA SECONDARY TO BLOO 03/11/2019 SHIREEN AGARWAL Ot E03.9 HYPOTHYROIDISM, UNSPECIFIED 03/11/2019 SHIREEN AGARWAL Ot 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 03/11/2019 SHIREEN AGARWAL Ot E53.8 DEFICIENCY OF OTHER SPECIFIED B GROUP 03/11/2019 SHIREEN AGARWAL Ot I12.9 HYPERTENSIVE CHRONIC KIDNEY DISEASE W ST 03/11/2019 SHIREEN AGARWAL Ot 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 03/11/2019 SHIREEN AGARWAL Ot I48.91 UNSPECIFIED ATRIAL FIBRILLATION 03/11/2019 SHIREEN AGARWAL N Ot K31.819 ANGIODYSPLASIA OF STOMACH AND DUODENUM W 03/11/2019 SHIREEN AGARWAL Ot K74.60 UNSPECIFIED CIRRHOSIS OF LIVER 03/11/2019 SHIREEN AGARWAL Ot N18.3 CHRONIC KIDNEY DISEASE, STAGE 3 (MODERAT 03/11/2019 SHIREEN AGARWAL Ot R82.998 OTHER ABNORMAL FINDINGS IN URINE 03/11/2019 SHIREEN AGARWAL Ot Z79.899 OTHER HALFWAY (CURRENT) DRUG THERAPY 03/28/2019 KRUNAL KHOURY PHD, LULA Clement Ot D50.0 IRON DEFICIENCY ANEMIA SECONDARY TO BLOO 03/28/2019 KRUNAL KHOURY PHD, LULA Clement Ot E03.9 HYPOTHYROIDISM, UNSPECIFIED 03/28/2019 KRUNAL KHOURY PHD, LULA Clement Ot 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 03/28/2019 KRUNAL KHOURY PHD, LULA Clement Ot E53.8 DEFICIENCY OF OTHER SPECIFIED B GROUP 03/28/2019 KRUNAL KHOURY PHD, LULA Clement Ot I12.9 HYPERTENSIVE CHRONIC KIDNEY DISEASE W ST 03/28/2019 KRUNAL KHOURY PHD, LULA Clement Ot 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 03/28/2019 KRUNAL KHOURY PHD, LULA Clement Ot I48.91 UNSPECIFIED ATRIAL FIBRILLATION 03/28/2019 KRUNAL KHOURY PHD, LULA Clement Ot K31.819 ANGIODYSPLASIA OF STOMACH AND DUODENUM W 03/28/2019 KRUNAL KHOURY PHD, LULA Clement Ot K74.60 UNSPECIFIED CIRRHOSIS OF LIVER 03/28/2019 KRUNAL KHOURY PHD, LULA Clement Ot N18.3 CHRONIC KIDNEY DISEASE, STAGE 3 (MODERAT 03/28/2019 KRUNAL KHOURY PHD, LULA Clement Ot Z79.899 OTHER HOSPITAL SECURITY OFFICER (CURRENT) DRUG THERAPY 03/28/2019 SHIREEN AGARWAL Ot D50.0 IRON DEFICIENCY ANEMIA SECONDARY TO BLOO 03/28/2019 SHIREEN AGARWAL Ot E03.9 HYPOTHYROIDISM, UNSPECIFIED 03/28/2019 SHIREEN AGARWAL Ot 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 03/28/2019 SHIREEN AGARWAL Ot E53.8 DEFICIENCY OF OTHER SPECIFIED B GROUP 03/28/2019 SHIREEN AGARWAL Ot I12.9 HYPERTENSIVE CHRONIC KIDNEY DISEASE W ST 03/28/2019 SHIREEN AGARWAL Ot 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 03/28/2019 SHIREEN AGARWAL Ot I48.91 UNSPECIFIED ATRIAL FIBRILLATION 03/28/2019 SHIREEN AGARWAL Ot K31.819 ANGIODYSPLASIA OF STOMACH AND DUODENUM W 03/28/2019 SHIREEN AGARWAL Ot K74.60 UNSPECIFIED CIRRHOSIS OF LIVER 03/28/2019 SHIREEN AGARWAL N Ot N18.3 CHRONIC KIDNEY DISEASE, STAGE 3 (MODERAT 03/28/2019 SHIREEN AGARWAL N Ot R82.998 OTHER ABNORMAL FINDINGS IN URINE 03/28/2019 SHIREEN AGARWAL N Ot Z79.899 OTHER HOSPITAL SECURITY OFFICER (CURRENT) DRUG THERAPY 04/10/2019 SHIREEN AGARWAL N Ot D50.0 IRON DEFICIENCY ANEMIA SECONDARY TO BLOO 04/10/2019 SHIREEN AGARWAL N Ot E03.9 HYPOTHYROIDISM, UNSPECIFIED 04/10/2019 SHIREEN AGARWAL N Ot 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 04/10/2019 SHIREEN AGARWAL N Ot E53.8 DEFICIENCY OF OTHER SPECIFIED B GROUP 04/10/2019 SHIREEN AGARWAL N Ot I12.9 HYPERTENSIVE CHRONIC KIDNEY DISEASE W ST 04/10/2019 SHIREEN AGARWAL N Ot 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 04/10/2019 SHIREEN AGARWAL Solange Ot I48.91 UNSPECIFIED ATRIAL FIBRILLATION 04/10/2019 SHIREEN AGARWAL N Ot K31.819 ANGIODYSPLASIA OF STOMACH AND DUODENUM W 04/10/2019 SHIREEN AGARWAL N Ot K74.60 UNSPECIFIED CIRRHOSIS OF LIVER 04/10/2019 SHIREEN AGARWAL N Ot N18.3 CHRONIC KIDNEY DISEASE, STAGE 3 (MODERAT 04/10/2019 SHIREEN AGARWAL N Ot R82.998 OTHER ABNORMAL FINDINGS IN URINE 04/10/2019 SHIREEN AGARWAL N Ot Z79.899 OTHER HOSPITAL SECURITY OFFICER (CURRENT) DRUG THERAPY 04/11/2019 KRUNAL KHOURY PHD, LULA lCement Ot D50.0 IRON DEFICIENCY ANEMIA SECONDARY TO BLOO 04/11/2019 KRUNAL KHOURY PHD, LULA Clement Ot E03.9 HYPOTHYROIDISM, UNSPECIFIED 04/11/2019 KRUNAL KHOURY PHD, LULA Clement Ot 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 04/11/2019 KRUNAL KHOURY PHD, LULA Clement Ot E53.8 DEFICIENCY OF OTHER SPECIFIED B GROUP 04/11/2019 KRUNAL KHOURY PHD, LULA Clement Ot I12.9 HYPERTENSIVE CHRONIC KIDNEY DISEASE W ST 04/11/2019 KRUNAL KHOURY PHD, LULA Clement Ot 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 04/11/2019 KRUNAL KHOURY PHD, LULA Clement Ot I48.91 UNSPECIFIED ATRIAL FIBRILLATION 04/11/2019 KRUNAL KHOURY PHD, LULA Clement Ot K31.819 ANGIODYSPLASIA OF STOMACH AND DUODENUM W 04/11/2019 KRUNAL KHOURY PHD, LULA Clement Ot K74.60 UNSPECIFIED CIRRHOSIS OF LIVER 04/11/2019 KRUNAL KHOURY PHD, LULA Clement Ot N18.3 CHRONIC KIDNEY DISEASE, STAGE 3 (MODERAT 04/11/2019 KRUNAL KHOURY PHD, LULA Clement Ot Z79.899 OTHER HALFWAY (CURRENT) DRUG THERAPY 04/11/2019 ANY BOBAN N Ot D50.0 IRON DEFICIENCY ANEMIA SECONDARY TO BLOO 04/11/2019 ANY, BOBAN N Ot E03.9 HYPOTHYROIDISM, UNSPECIFIED 04/11/2019 ANY BOBAN N Ot 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 04/11/2019 ANY BOBAN N Ot E53.8 DEFICIENCY OF OTHER SPECIFIED B GROUP 04/11/2019 ANY BOBAN N Ot I12.9 HYPERTENSIVE CHRONIC KIDNEY DISEASE W ST 04/11/2019 ANY BOBAN N Ot 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 04/11/2019 ANY BOBAN N Ot I48.91 UNSPECIFIED ATRIAL FIBRILLATION 04/11/2019 ANY BOBAN N Ot K31.819 ANGIODYSPLASIA OF STOMACH AND DUODENUM W 04/11/2019 ANY BOBAN N Ot K74.60 UNSPECIFIED CIRRHOSIS OF LIVER 04/11/2019 ANY BOBAN N Ot N18.3 CHRONIC KIDNEY DISEASE, STAGE 3 (MODERAT 04/11/2019 ANY BOBAN N Ot R82.998 OTHER ABNORMAL FINDINGS IN URINE 04/11/2019 ANY, BOBAN N Ot Z79.899 OTHER HALFWAY (CURRENT) DRUG THERAPY 04/12/2019 BRIAN KHOURY, JAMES Champion Ot D64.9 ANEMIA, UNSPECIFIED 04/12/2019 BRIAN KHOURY, JAMES Champion Ot E11.2 2 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 04/12/2019 BRIAN KHOURY, JAMES Champion Ot E78.5 HYPERLIPIDEMIA, UNSPECIFIED 04/12/2019 JAMES TORRES MD Ot F41.9 ANXIETY DISORDER, UNSPECIFIED 04/12/2019 JAMES TORRES MD, Ot G89.2 9 OTHER CHRONIC PAIN 04/12/2019 JAMES TORRES MD, Ot I12.9 HYPERTENSIVE CHRONIC KIDNEY DISEASE W ST 04/12/2019 JAMES TORRES MD, Ot I25.1 0 ATHSCL HEART DISEASE OF [place] CORONARY 04/12/2019 JAMES TORRES MD, Ot I48.9 [...] HEMATURIA 04/12/2019 JAMES TORRES MD, Ot 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 04/12/2019 JAMES TORRES [...] TORRES MD, Ot Z88.8 ALLERGY STATUS TO OTH DRUG/MEDS/BIOL SUB 04/12/2019 JAMES TORRES MD Ot D64.9 ANEMIA, UNSPECIFIED 04/12/2019 JAMES TORRES MD Ot E11.2 2 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 04/12/2019 JAMES TORRES MD Ot E78.5 HYPERLIPIDEMIA, UNSPECIFIED 04/12/2019 JAMES TORRES MD, Ot F41.9 ANXIETY DISORDER, UNSPECIFIED 04/12/2019 JAMES TORRES MD Ot G89.2 9 OTHER CHRONIC PAIN 04/12/2019 JAMES TORRES MD Ot I12.9 HYPERTENSIVE CHRONIC KIDNEY DISEASE W ST 04/12/2019 JAMES TORRES MD, Ot I25.1 0 ATHSCL HEART DISEASE OF [place] CORONARY 04/12/2019 JAMES TORRES MD Ot I48.9 [...] HEMATURIA 04/12/2019 JAMES TORRES MD, Ot Z79.4 HALFWAY (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 OF INSULIN 04/12/2019 JAMES TORRES MD, Ot Z80.3 FAMILY HISTORY OF MALIGNANT NEOPLASM OF 04/12/2019 JAMES TORRES MD, Ot Z82.4 9 FAMILY HX OF ISCHEM HEART DIS AND OTH DI 04/12/2019 JAMES TORRES MD, Ot Z86.7 9 PERSONAL HISTORY OF OTHER DISEASES OF TH 04/12/2019 GAULT MD, JAMES R Ot Z87.8 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 04/12/2019 BRIAN KHOURY, JAMES Champion Ot Z88.1 ALLERGY STATUS TO OTHER ANTIBIOTIC [...] 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 04/24/2019 KRUNAL KHOURY PHD, LULA Clement Ot E53.8 DEFICIENCY OF OTHER SPECIFIED B GROUP 04/24/2019 KRUNAL KHOURY PHD, LULA Clement Ot I12.9 HYPERTENSIVE CHRONIC KIDNEY DISEASE W ST 04/24/2019 KRUNAL KHOURY PHD, LULA Clement Ot 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 04/24/2019 KRUNAL KHOURY PHD, LULA Clement Ot I48.91 UNSPECIFIED ATRIAL FIBRILLATION 04/24/2019 KRUNAL KHOURY PHD, LULA Clement Ot K31.819 ANGIODYSPLASIA OF STOMACH AND DUODENUM W 04/24/2019 KRUNAL KHOURY PHD, LULA Clement Ot K74.60 UNSPECIFIED CIRRHOSIS OF LIVER 04/24/2019 KRUNAL KHOURY PHD, LULA Clement Ot N18.3 CHRONIC KIDNEY DISEASE, STAGE 3 (MODERAT 04/24/2019 KRUNAL KHOURY PHD, LULA Clement Ot Z79.899 OTHER HOSPITAL SECURITY OFFICER (CURRENT) DRUG THERAPY 04/25/2019 SHIREEN AGARWAL Ot D50.9 IRON DEFICIENCY ANEMIA, UNSPECIFIED 04/25/2019 SHIREEN AGARWAL Ot D63.1 ANEMIA IN CHRONIC KIDNEY DISEASE 04/25/2019 SHIREEN AGARWAL Ot E03.9 HYPOTHYROIDISM, UNSPECIFIED 04/25/2019 SHIREEN AGARWAL N Ot 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 04/25/2019 SHIREEN AGARWAL Ot E53.8 DEFICIENCY OF OTHER SPECIFIED B GROUP 04/25/2019 SHIREEN AGARWAL N Ot E66.9 OBESITY, UNSPECIFIED 04/25/2019 ANY SHIREEN N Ot E78.5 HYPERLIPIDEMIA, UNSPECIFIED 04/25/2019 SHIREEN AGARWAL Solange Ot 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 04/25/2019 ANYSHIREEN Ot 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 04/25/2019 ANYJJBLU Solange Ot I47.1 SUPRAVENTRICULAR TACHYCARDIA 04/25/2019 ANYSHIREEN Ot I48.91 UNSPECIFIED ATRIAL FIBRILLATION 04/25/2019 ANYSHIREEN Ot I50.30 UNSPECIFIED DIASTOLIC (CONGESTIVE) HEART 04/25/2019 ANYSHIREEN Ot K29.51 UNSPECIFIED CHRONIC GASTRITIS WITH BLEED 04/25/2019 ANYSHIREEN Ot K31.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 04/25/2019 ANYSHIREEN Ot K44.9 DIAPHRAGMATIC HERNIA WITHOUT OBSTRUCTION 04/25/2019 ANYSHIREEN Ot K63.5 POLYP OF COLON 04/25/2019 ANYSHIREEN Ot K64.9 UNSPECIFIED HEMORRHOIDS 04/25/2019 ANYSHIREEN N Ot K74.60 UNSPECIFIED CIRRHOSIS OF LIVER 04/25/2019 ANY JJBLU Narvaez Ot M19.90 UNSPECIFIED OSTEOARTHRITIS, UNSPECIFIED 04/25/2019 ANYJJBLU N Ot N18.3 CHRONIC KIDNEY DISEASE, STAGE 3 (MODERAT 04/25/2019 ANY SHIREEN N Ot Z79.899 OTHER HOSPITAL SECURITY OFFICER (CURRENT) DRUG THERAPY 04/25/2019 ANYJJBLU Solange Ot Z80.0 FAMILY HISTORY OF MALIGNANT NEOPLASM OF 05/02/2019 MACIEL WELCH APRN Ot M79.89 OTHER SPECIFIED SOFT TISSUE DISORDERS 05/02/2019 ANYJJBLU N Ot D64.9 ANEMIA, UNSPECIFIED 05/02/2019 ANYSHIREEN N Ot E11.9 TYPE 2 DIABETES MELLITUS WITHOUT COMPLIC 05/02/2019 SHIREEN AGARWAL N Ot K74.60 UNSPECIFIED CIRRHOSIS OF LIVER 05/02/2019 SHIREEN AGARWAL N Ot N18.9 CHRONIC KIDNEY DISEASE, UNSPECIFIED 05/02/2019 JAMES TORRES MD Ot D64.9 ANEMIA, UNSPECIFIED 05/02/2019 JAMES TORRES MD Ot E11.2 2 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 05/02/2019 BRIAN KHOURY, JAMES R Ot K74.6 0 UNSPECIFIED CIRRHOSIS OF LIVER 05/02/2019 BRIAN KHOURY, JAMES R Ot N18.9 CHRONIC KIDNEY DISEASE, UNSPECIFIED 05/02/2019 BRIAN KHOURY, JAMES Champion Ot E03.9 HYPOTHYROIDISM, UNSPECIFIED 05/02/2019 KRUNAL KHOURY PHD, LULA Clement Ot I50.32 CHRONIC DIASTOLIC (CONGESTIVE) HEART KATY 05/02/2019 KRUNAL KHOURY PHD, LULA S Ot E03.9 HYPOTHYROIDISM, UNSPECIFIED 05/02/2019 KRUNAL KHOURY PHD, LULA S Ot I50.32 CHRONIC DIASTOLIC (CONGESTIVE) HEART KATY 05/02/2019 KRUNAL KHOURY PHD, LULA S Ot [...] 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 05/02/2019 SHIREEN AGARWAL Ot E53.8 DEFICIENCY OF OTHER SPECIFIED B GROUP 05/02/2019 SHIREEN AGARWAL Ot E66.9 OBESITY, UNSPECIFIED 05/02/2019 SHIREEN AGARWAL Ot E78.5 HYPERLIPIDEMIA, UNSPECIFIED 05/02/2019 SHIREEN AGARWAL Ot 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 05/02/2019 SHIREEN AGARWAL Ot 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 05/02/2019 SHIREEN AGARWAL Ot I47.1 SUPRAVENTRICULAR TACHYCARDIA 05/02/2019 SHIREEN AGARWAL Ot I48.91 UNSPECIFIED ATRIAL FIBRILLATION 05/02/2019 SHIREEN AGARWAL Ot I50.30 UNSPECIFIED DIASTOLIC (CONGESTIVE) HEART 05/02/2019 SHIREEN AGARWAL Ot K29.51 UNSPECIFIED CHRONIC GASTRITIS WITH BLEED 05/02/2019 SHIREEN AGARWAL Ot K31.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 05/02/2019 SHIREEN AGARWAL Solange Ot K44.9 DIAPHRAGMATIC HERNIA WITHOUT OBSTRUCTION 05/02/2019 SHIREEN AGARWAL Solange Ot K63.5 POLYP OF COLON 05/02/2019 SHIREEN AGARWAL Solange Ot K64.9 UNSPECIFIED HEMORRHOIDS 05/02/2019 SHIREEN AGARWAL Solange Ot K74.60 UNSPECIFIED CIRRHOSIS OF LIVER 05/02/2019 SHIREEN AGARWAL Solange Ot M19.90 UNSPECIFIED OSTEOARTHRITIS, UNSPECIFIED 05/02/2019 SHIREEN AGARWAL Solange Ot N18.3 CHRONIC KIDNEY DISEASE, STAGE 3 (MODERAT 05/02/2019 SHIREEN AGARWAL Solange Ot Z68.33 BODY MASS INDEX (BMI) 33.0-33.9, ADULT 05/02/2019 SHIREEN AGARWAL Solange Ot Z79.899 OTHER HOSPITAL SECURITY OFFICER (CURRENT) DRUG THERAPY 05/02/2019 SHIREEN AGARWAL Solange Ot Z80.0 FAMILY HISTORY OF MALIGNANT NEOPLASM OF 05/02/2019 KRUNAL KHOURY PHD, LULA Clement Ot D50.0 IRON DEFICIENCY ANEMIA SECONDARY TO BLOO 05/02/2019 KRUNAL KHOURY PHD, LULA Clement Ot E03.9 HYPOTHYROIDISM, UNSPECIFIED 05/02/2019 KRUNAL KHOURY PHD, LULA Clement Ot 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 05/02/2019 KRUNAL KHOURY PHD, LULA Clement Ot E53.8 DEFICIENCY OF OTHER SPECIFIED B GROUP 05/02/2019 KRUNAL KHOURY PHD, LULA Clement Ot I12.9 HYPERTENSIVE CHRONIC KIDNEY DISEASE W ST 05/02/2019 KRUNAL KHOURY PHD, LULA Clement Ot 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 05/02/2019 KRUNAL KHOURY PHD, LULA Clement Ot I48.91 UNSPECIFIED ATRIAL FIBRILLATION 05/02/2019 KRUNAL KHOURY PHD, LULA Clement Ot K31.819 ANGIODYSPLASIA OF STOMACH AND DUODENUM W 05/02/2019 KRUNAL KHOURY PHD, LULA Clement Ot K74.60 UNSPECIFIED CIRRHOSIS OF LIVER 05/02/2019 KRUNAL KHOURY PHD, LULA Clement Ot N18.3 CHRONIC KIDNEY DISEASE, STAGE 3 (MODERAT 05/02/2019 KRUNAL KHOURY PHD, LULA Clement Ot Z79.899 OTHER HOSPITAL SECURITY OFFICER (CURRENT) DRUG THERAPY 05/07/2019 MALLORIE FATIMA APRN Ot D64 .9 ANEMIA, UNSPECIFIED 05/07/2019 MALLORIE FATIMA APRN Ot 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 05/07/2019 MALLORIE FATIMA APRN Ot E78.00 PURE HYPERCHOLESTEROLEMIA, UNSPECIFIED 05/07/2019 MALLORIE FATIMA APRN Ot F41 .9 ANXIETY DISORDER, UNSPECIFIED 05/07/2019 MALLORIE FATIMA APRN Ot I12 .9 HYPERTENSIVE CHRONIC KIDNEY DISEASE W ST 05/07/2019 MALLORIE FATIMA APRN Ot 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 05/07/2019 MALLORIE FATIMA APRN Ot I25 [...] 05/07/2019 MALLORIE FATIMA APRN Ot Z79 .4 HALFWAY (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 OF INSULIN 05/07/2019 MALLORIE FATIMA [...] PRESENCE OF AORTOCORONARY BYPASS GRAFT 05/07/2019 MALLORIE FAITMA APRN Ot Z95 .5 PRESENCE OF CORONARY ANGIOPLASTY IMPLANT 05/07/2019 MALLORIE FATIMA APRN Ot Z98.51 TUBAL LIGATION STATUS 05/11/2019 MALLORIE FATIMA APRN Ot D64 .9 ANEMIA, UNSPECIFIED 05/11/2019 MALLORIE FATIMA APRN Ot 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 05/11/2019 MALLORIE FATIMA APRN Ot E78.00 PURE HYPERCHOLESTEROLEMIA, UNSPECIFIED 05/11/2019 MALLORIE FATIMA APRN Ot F41 .9 ANXIETY DISORDER, UNSPECIFIED 05/11/2019 MALLORIE FATIMA APRN Ot I12 .9 HYPERTENSIVE CHRONIC KIDNEY DISEASE W ST 05/11/2019 MALLORIE FATIMA APRN Ot 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 05/11/2019 MALLORIE FATIMA APRN Ot I25 [...] 05/11/2019 MALLORIE FATIMA APRN Ot Z79 .4 HOSPITAL SECURITY OFFICER (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 OF INSULIN 05/11/2019 MALLORIE FATIMA [...] TO OTH DRUG/MEDS/BIOL SUB 05/11/2019 MALLORIE FATIMA HAND TOOL LAPPER Ot Z90.89 ACQUIRED ABSENCE OF OTHER ORGANS 05/11/2019 MALLORIE FATIMA HAND TOOL LAPPER Ot Z95 .1 PRESENCE OF AORTOCORONARY BYPASS GRAFT 05/11/2019 MALLORIE FATIMA HAND TOOL LAPPER Ot Z95 .5 PRESENCE OF CORONARY ANGIOPLASTY IMPLANT 05/11/2019 MALLORIE FATIMA HAND TOOL LAPPER Ot Z98.51 TUBAL LIGATION STATUS 05/16/2019 MARY ANN CRUZ HAND TOOL LAPPER Ot E03.9 HYPOTHYROIDISM, UNSPECIFIED 05/20/2019 KRUNAL KHOURY PHD, LULA Clement Ot I50.32 CHRONIC DIASTOLIC (CONGESTIVE) HEART KATY 05/30/2019 SHIREEN AGARWAL Ot D50.9 IRON DEFICIENCY ANEMIA, UNSPECIFIED 05/30/2019 SHIREEN AGARWAL Ot D63.1 ANEMIA IN CHRONIC KIDNEY DISEASE 05/30/2019 SHIREEN AGARWAL Ot E03.9 HYPOTHYROIDISM, UNSPECIFIED 05/30/2019 SHIREEN AGARWAL Ot 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 05/30/2019 SHIREEN AGARWAL Ot E53.8 DEFICIENCY OF OTHER SPECIFIED B GROUP 05/30/2019 SHIREEN AGARWAL N Ot E66.9 OBESITY, UNSPECIFIED 05/30/2019 SHIREEN AGARWAL Ot E78.5 HYPERLIPIDEMIA, UNSPECIFIED 05/30/2019 SHIREEN AGARWAL Ot 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 05/30/2019 SHIREEN AGARWAL Ot 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60 UNSPECIFIED CIRRHOSIS OF LIVER 05/30/2019 SHIREEN AGARWAL Solange Ot M19.90 UNSPECIFIED OSTEOARTHRITIS, UNSPECIFIED 05/30/2019 SHIREEN AGARWAL Solange Ot N18.3 CHRONIC KIDNEY DISEASE, STAGE 3 (MODERAT 05/30/2019 SHIREEN AGARWAL Solagne Ot Z68.33 BODY MASS INDEX (BMI) 33.0-33.9, ADULT 05/30/2019 SHIREEN AGARWAL Solange Ot Z79.899 OTHER HOSPITAL SECURITY OFFICER (CURRENT) DRUG THERAPY 05/30/2019 SHIREEN AGARWAL Solange Ot Z80.0 FAMILY HISTORY OF MALIGNANT NEOPLASM OF 06/01/2019 RACHELE JEFFERSONP Ot J98.11 ATELECTASIS 06/01/2019 RACHELE JEFFERSONP Ot J98.4 OTHER DISORDERS OF LUNG 06/01/2019 RACHELE JEFFERSONP Ot Z95.9 PRESENCE OF CARDIAC [...] MD, Ot 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 06/06/2019 TOMASA CARMONA MD, Ot I25 .2 OLD MYOCARDIAL INFARCTION 06/06/2019 TOMASA CARMONA MD, Ot I48 .0 PAROXYSMAL ATRIAL FIBRILLATION 06/06/2019 TOMASA CARMONA MD, Ot I50 .9 HEART FAILURE, UNSPECIFIED 06/06/2019 TOMASA CARMONA MD Ot K21 .9 GASTRO-ESOPHAGEAL REFLUX DISEASE WITHOUT 06/06/2019 TOMASA CARMONA MD, Ot L40 .9 PSORIASIS, UNSPECIFIED 06/06/2019 TOMASA CARMONA MD Ot M19.90 UNSPECIFIED OSTEOARTHRITIS, UNSPECIFIED 06/06/2019 TOMASA CARMONA MD, Ot M54 .9 DORSALGIA, UNSPECIFIED 06/06/2019 TOMASA CARMONA MD, Ot N18 .9 CHRONIC KIDNEY DISEASE, UNSPECIFIED 06/06/2019 TOMASA CARMONA MD, Ot R41 .0 DISORIENTATION, UNSPECIFIED 06/06/2019 TOMASA CARMONA MD, Ot Z79 .4 HALFWAY (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 OF INSULIN 06/06/2019 TOMASA CARMONA [...] (CONGESTIVE) HEART KATY 06/10/2019 MARY ANN CRUZ HAND TOOL LAPPER Ot E03.9 HYPOTHYROIDISM, UNSPECIFIED 06/21/2019 RACHELE JEFFERSON PHARMACY INNOVATION ASSISTANT Ot J98.11 ATELECTASIS 06/21/2019 RACHELE JEFFERSON PHARMACY INNOVATION ASSISTANT Ot J98.4 OTHER DISORDERS OF LUNG 06/21/2019 RACHELE JEFFERSONP Ot Z95.9 PRESENCE OF CARDIAC AND VASCULAR IMPLANT 06/27/2019 SHIREEN AGARWAL Ot D50.9 IRON DEFICIENCY ANEMIA, UNSPECIFIED 06/27/2019 SHIREEN AGARWAL Ot D63.1 ANEMIA IN CHRONIC KIDNEY DISEASE 06/27/2019 SHIREEN AGARWAL Ot E03.9 HYPOTHYROIDISM, UNSPECIFIED 06/27/2019 SHIREEN AGARWAL Ot 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 06/27/2019 SHIREEN AGARWAL Ot E53.8 DEFICIENCY OF OTHER SPECIFIED B GROUP 06/27/2019 SHIREEN AGARWAL Ot E66.9 OBESITY, UNSPECIFIED 06/27/2019 SHIREEN AGARWAL Ot E78.5 HYPERLIPIDEMIA, UNSPECIFIED 06/27/2019 SHIREEN AGARWAL Ot 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 06/27/2019 SHIREEN AGARWAL Ot 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 06/27/2019 SHIREEN AGARWAL Ot I47.1 SUPRAVENTRICULAR [...] ADULT 06/27/2019 SHIREEN AGARWAL Ot Z79.899 OTHER HOSPITAL SECURITY OFFICER (CURRENT) DRUG THERAPY 06/27/2019 SHIREEN AGARWAL Ot Z80.0 FAMILY HISTORY OF MALIGNANT NEOPLASM OF 07/11/2019 SHIREEN AGARWAL Ot D50.9 IRON DEFICIENCY ANEMIA, UNSPECIFIED 07/11/2019 SHIREEN AGARWAL Ot D63.1 ANEMIA IN CHRONIC KIDNEY DISEASE 07/11/2019 SHIREEN AGARWAL Ot E03.9 HYPOTHYROIDISM, UNSPECIFIED 07/11/2019 SHIREEN AGARWAL Ot 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 07/11/2019 SHIREEN AGARWAL Ot E53.8 DEFICIENCY OF OTHER SPECIFIED B GROUP 07/11/2019 SHIREEN AGARWAL Ot E66.9 OBESITY, UNSPECIFIED 07/11/2019 SHIREEN AGARWAL Ot E78.5 HYPERLIPIDEMIA, UNSPECIFIED 07/11/2019 SHIREEN AGARWAL Ot 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 07/11/2019 SHIREEN AGARWAL Ot 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 07/11/2019 SHIREEN AGARWAL Ot I47.1 SUPRAVENTRICULAR [...] ADULT 07/11/2019 SHIREEN AGARWAL Ot Z79.899 OTHER HOSPITAL SECURITY OFFICER (CURRENT) DRUG THERAPY 07/11/2019 SHIREEN AGARWAL Ot Z80.0 FAMILY HISTORY OF MALIGNANT NEOPLASM OF 07/11/2019 SHIREEN AGARWAL Ot D50.9 IRON DEFICIENCY ANEMIA, UNSPECIFIED 07/11/2019 SHIREEN AGARWAL Ot D63.1 ANEMIA IN CHRONIC KIDNEY DISEASE 07/11/2019 SHIREEN AGARWAL Ot E03.9 HYPOTHYROIDISM, UNSPECIFIED 07/11/2019 SHIREEN AGARWAL Ot 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 07/11/2019 SHIREEN AGARWAL Ot E53.8 DEFICIENCY OF OTHER SPECIFIED B GROUP 07/11/2019 SHIREEN AGARWAL Ot E66.9 OBESITY, UNSPECIFIED 07/11/2019 SHIREEN AGARWAL Ot E78.5 HYPERLIPIDEMIA, UNSPECIFIED 07/11/2019 SHIREEN AGARWAL Ot 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 07/11/2019 SHIREEN AGARWAL Ot 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 07/11/2019 SHIREEN AGARWAL Ot I47.1 SUPRAVENTRICULAR TACHYCARDIA 07/11/2019 SHIREEN AGARWAL Ot I48.91 UNSPECIFIED ATRIAL FIBRILLATION 07/11/2019 SHIREEN AGARWAL Ot I50.30 UNSPECIFIED DIASTOLIC (CONGESTIVE) HEART 07/11/2019 SHIREEN AGARWAL Ot K29.51 UNSPECIFIED CHRONIC GASTRITIS WITH BLEED 07/11/2019 SHIREEN AGARWAL Ot K31.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 07/11/2019 SHIREEN AGRAWAL Ot K44.9 DIAPHRAGMATIC HERNIA WITHOUT OBSTRUCTION 07/11/2019 [...] ADULT 07/11/2019 SHIREEN AGARWAL Ot Z79.899 OTHER HOSPITAL SECURITY OFFICER (CURRENT) DRUG THERAPY 07/11/2019 SHIREEN AGARWAL Ot Z80.0 FAMILY HISTORY OF MALIGNANT NEOPLASM OF 07/17/2019 SHIREEN AGARWAL Ot D50.9 IRON DEFICIENCY ANEMIA, UNSPECIFIED 07/17/2019 SHIREEN AGARWAL Ot D63.1 ANEMIA IN CHRONIC KIDNEY DISEASE 07/17/2019 SHIREEN AGARWAL Ot E03.9 HYPOTHYROIDISM, UNSPECIFIED 07/17/2019 SHIREEN AGARWAL Ot 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 07/17/2019 SHIREEN AGARWAL Ot E53.8 DEFICIENCY OF OTHER SPECIFIED B GROUP 07/17/2019 SHIREEN AGARWAL Ot E66.9 OBESITY, UNSPECIFIED 07/17/2019 SHIREEN AGARWAL Ot E78.5 HYPERLIPIDEMIA, UNSPECIFIED 07/17/2019 SHIREEN AGARWAL Ot 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 07/17/2019 SHIREEN AGARWAL Ot 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 07/17/2019 SHIREEN AGARWAL Ot I47.1 SUPRAVENTRICULAR [...] ADULT 07/17/2019 SHIREEN AGARWAL Ot Z79.899 OTHER HOSPITAL SECURITY OFFICER (CURRENT) DRUG THERAPY 07/17/2019 SHIREEN AGARWAL Ot Z80.0 FAMILY HISTORY OF MALIGNANT NEOPLASM OF 07/19/2019 BRIAN KHOURY, JAMES Champion Ot Z12.3 1 ENCNTR SCREEN MAMMOGRAM FOR MALIGNANT NE 07/28/2019 MICHELLE GARCIA DO Ot D50.0 IRON DEFICIENCY [...] MICHELLE Ot 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 07/28/2019 GARCIA DO, MICHELLE Ot I25.2 [...] DO, MICHELLE Ot R57.1 HYPOVOLEMIC SHOCK 07/28/2019 RADHA WOODMICHELLE Ot 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 07/28/2019 RADHA WOODMICHELLE Ot Z87.89 1 PERSONAL HISTORY OF NICOTINE DEPENDENCE 07/28/2019 RADHA WOODMICHELLE Ot Z95.1 PRESENCE OF AORTOCORONARY BYPASS GRAFT 07/28/2019 GARCIAMICHELLE STAHL DO Ot Z95.5 PRESENCE OF CORONARY ANGIOPLASTY [...] 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 08/05/2019 SHIREEN AGARWAL Ot E53.8 DEFICIENCY OF OTHER SPECIFIED B GROUP 08/05/2019 SHIREEN AGARWAL Ot E66.9 OBESITY, UNSPECIFIED 08/05/2019 SHIREEN AGARWAL Ot E78.5 HYPERLIPIDEMIA, UNSPECIFIED 08/05/2019 SHIREEN AGARWAL Ot 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 08/05/2019 SHIREEN AGARWAL Ot 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 08/05/2019 SHIREEN AGARWAL Ot I47.1 SUPRAVENTRICULAR [...] ADULT 08/05/2019 SHIREEN AGARWAL Ot Z79.899 OTHER HOSPITAL SECURITY OFFICER (CURRENT) DRUG THERAPY 08/05/2019 SHIREEN AGARWAL Ot [...] HYPERTENSIVE CHRONIC KIDNEY DISEASE W ST 09/21/2019 RADHA DO, MICHELLE Ot 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 09/21/2019 GARCIA DO, MICHELLE Ot I25.2 [...] SHOCK 09/21/2019 GARCIA DO, MICHELLE Ot Z79.4 HALFWAY (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 OF INSULIN 09/21/2019 [facility], MICHELLE Ot Z87.89 1 PERSONAL HISTORY OF NICOTINE DEPENDENCE 09/21/2019 [facility], MICHELLE Ot Z95.1 PRESENCE OF AORTOCORONARY BYPASS GRAFT 09/21/2019 [facility], MICHELLE Ot Z95.5 PRESENCE OF CORONARY ANGIOPLASTY IMPLANT 09/27/2019 KATERYNA KHOURY, MAUREEN Rashid Ot D64.9 ANEMIA, UNSPECIFIED 09/27/2019 MAUREEN AVENDAÑO MD Ot E11.9 TYPE 2 DIABETES MELLITUS WITHOUT COMPLIC 09/27/2019 MAUREEN AVENDAÑO MD Ot E78.00 PURE HYPERCHOLESTEROLEMIA, UNSPECIFIED 09/27/2019 MAUREEN AVENDAÑO MD Ot F41.9 ANXIETY DISORDER, UNSPECIFIED 09/27/2019 MAUREEN AVENDAÑO MD Ot G47.30 SLEEP APNEA, UNSPECIFIED 09/27/2019 MAUREEN AVENDAÑO MD, Ot 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 09/27/2019 MAUREEN AVENDAÑO MD, Ot 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 09/27/2019 MAUREEN AVENDAÑO MD, Ot I48.91 UNSPECIFIED ATRIAL FIBRILLATION 09/27/2019 MAUREEN AVENDAÑO MD Ot I49.1 ATRIAL PREMATURE DEPOLARIZATION 09/27/2019 MAUREEN AVENDAÑO MD, Ot I50.9 HEART FAILURE, UNSPECIFIED 09/27/2019 MAUREEN AVENDAÑO MD, Ot K21.9 GASTRO-ESOPHAGEAL REFLUX DISEASE WITHOUT 09/27/2019 MAUREEN AVENDAÑO MD Ot K31.819 ANGIODYSPLASIA OF STOMACH AND DUODENUM W 09/27/2019 MAUREEN AVENDAÑO MD, Ot N18.9 CHRONIC KIDNEY DISEASE, UNSPECIFIED 09/27/2019 MAUREEN AVENDAÑO MD Ot R06.00 DYSPNEA, UNSPECIFIED 09/27/2019 MAUREEN AVENDAÑO MD Ot R06.02 SHORTNESS OF BREATH 09/27/2019 MAUREEN AVENDAÑO MD, Ot R07.9 CHEST PAIN, UNSPECIFIED 09/27/2019 MAUREEN AVENDAÑO MD, Ot 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 09/27/2019 MAUREEN AVENDAÑO MD, Ot Z87.8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 09/27/2019 MAUREEN AVENDAÑO MD Ot Z95.1 PRESENCE OF AORTOCORONARY BYPASS GRAFT 09/27/2019 MAUREEN AVENDAÑO MD, Ot Z95.5 PRESENCE OF [...] MD, Ot 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 09/28/2019 MAUREEN AVENDAÑO MD Ot I48.91 UNSPECIFIED ATRIAL FIBRILLATION 09/28/2019 MAUREEN AVENDAÑO MD Ot I49.1 ATRIAL PREMATURE DEPOLARIZATION 09/28/2019 MAUREEN AVENDAÑO MD, Ot I50.9 HEART FAILURE, UNSPECIFIED 09/28/2019 MAUREEN AVENADÑO MD, Ot K21.9 GASTRO-ESOPHAGEAL REFLUX DISEASE WITHOUT 09/28/2019 MAUREEN AVENDAÑO MD Ot K31.819 ANGIODYSPLASIA OF STOMACH AND DUODENUM W 09/28/2019 MAUREEN AVENDAÑO MD, Ot N18.9 CHRONIC KIDNEY DISEASE, UNSPECIFIED 09/28/2019 MAUREEN AVENDAÑO MD Ot R06.00 DYSPNEA, UNSPECIFIED 09/28/2019 MAUREEN AVENDAÑO MD Ot R06.02 SHORTNESS OF BREATH 09/28/2019 MAUREEN AVENDAÑO MD, Ot R07.9 CHEST PAIN, UNSPECIFIED 09/28/2019 MAUREEN AVENDAÑO MD, Ot Z79.4 HALFWAY (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 OF INSULIN 09/28/2019 MAUREEN AVENDAÑO MD Ot Z87.8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 09/28/2019 MAUREEN AVENDAÑO MD Ot Z95.1 PRESENCE OF AORTOCORONARY BYPASS GRAFT 09/28/2019 MAUREEN AVENDAÑO MD Ot Z95.5 PRESENCE OF CORONARY ANGIOPLASTY IMPLANT 10/04/2019 MAUREEN AVENDAÑO MD Ot D64.9 ANEMIA, UNSPECIFIED 10/04/2019 MAUREEN AVENDAÑO MD Ot E11.9 TYPE 2 DIABETES MELLITUS WITHOUT COMPLIC 10/04/2019 MAUREEN AVENDAÑO MD Ot E78.00 PURE HYPERCHOLESTEROLEMIA, UNSPECIFIED 10/04/2019 BRUEGGEMANN MD, MAUREEN T Ot F41.9 ANXIETY DISORDER, UNSPECIFIED 10/04/2019 KATERYNA KHOURY, MAUREEN Rashid Ot G47.30 SLEEP APNEA, UNSPECIFIED 10/04/2019 KATERYNA KHOURY, MAUREEN Rashid Ot 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 10/04/2019 KATERYNA KHOURY, MAUREEN Rashid Ot 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 10/04/2019 KATERYNA KHOURY, MAUREEN Rashid Ot I48.91 UNSPECIFIED ATRIAL FIBRILLATION 10/04/2019 KATERYNA KHOURY, MAUREEN Rashid Ot I49.1 ATRIAL PREMATURE DEPOLARIZATION 10/04/2019 KATERYNA KHOURY, MAUREEN Rashid Ot I50.9 HEART FAILURE, UNSPECIFIED 10/04/2019 KATERYNA KHOURY, MAUREEN Rashid Ot K21.9 GASTRO-ESOPHAGEAL REFLUX DISEASE WITHOUT 10/04/2019 KATERYNA KHOURY, MAUREEN Rashid Ot K31.819 ANGIODYSPLASIA OF STOMACH AND DUODENUM W 10/04/2019 KATERYNA KHOURY, MAUREEN Rashid Ot N18.9 CHRONIC KIDNEY DISEASE, UNSPECIFIED 10/04/2019 KATERYNA KHOURY, MAUREEN Rashid Ot R06.00 DYSPNEA, UNSPECIFIED 10/04/2019 MAUREEN AVENDAÑO MD Ot R06.02 SHORTNESS OF BREATH 10/04/2019 KATERYNA KHUORY, MAUREEN Rashid Ot R07.9 CHEST PAIN, UNSPECIFIED 10/04/2019 MAUREEN AVENDAÑO MD Ot Z79.4 HALFWAY (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 OF INSULIN 10/04/2019 MAUREEN AVENDAÑO MD Ot Z87.8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 10/04/2019 KATERYNA KHOURY, MAUREEN Rashid Ot Z95.1 PRESENCE OF AORTOCORONARY BYPASS GRAFT 10/04/2019 MAUREEN AVENDAÑO MD Ot Z95.5 PRESENCE OF CORONARY ANGIOPLASTY IMPLANT 10/06/2019 SHIREEN AGARWAL Ot D50.9 IRON DEFICIENCY ANEMIA, UNSPECIFIED 10/06/2019 SHIREEN AGARWAL Ot D63.1 ANEMIA IN CHRONIC KIDNEY DISEASE 10/06/2019 SHIREEN AGARWAL Ot E03.9 HYPOTHYROIDISM, UNSPECIFIED 10/06/2019 SHIREEN AGARAWL Ot 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 10/06/2019 SHIREEN AGARWAL Ot E53.8 DEFICIENCY OF OTHER SPECIFIED B GROUP 10/06/2019 SHIREEN AGARWAL Ot E66.9 OBESITY, UNSPECIFIED 10/06/2019 SHIREEN AGARWAL Ot E78.5 HYPERLIPIDEMIA, UNSPECIFIED 10/06/2019 SHIREEN AGARWAL Ot 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 10/06/2019 SHIREEN AGARWAL Ot 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 10/06/2019 SHIREEN AGARWAL Ot I47.1 SUPRAVENTRICULAR [...] ADULT 10/06/2019 SHIREEN AGARWAL Ot Z79.899 OTHER HALFWAY (CURRENT) DRUG THERAPY 10/06/2019 SHIREEN AGARWAL Ot Z80.0 FAMILY HISTORY OF MALIGNANT NEOPLASM OF 10/06/2019 KRUNAL KHOURY PHD, LULA Clement Ot I50.32 CHRONIC DIASTOLIC (CONGESTIVE) HEART KATY 10/08/2019 KRUNAL KHOURY PHD, LULA Clement Ot I50.32 CHRONIC DIASTOLIC (CONGESTIVE) HEART KATY 10/15/2019 GARCIA DO, MICHELLE Ot D64.9 ANEMIA, UNSPECIFIED 10/15/2019 GARCIA [...] MICHELLE Ot 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 10/15/2019 GARCIA DO, MICHELLE Ot I25.2 [...] DO, MICHELLE Ot R29.6 REPEATED FALLS 10/15/2019 GARCIA DOMICHELLE Ot R62.7 ADULT FAILURE TO THRIVE 10/15/2019 GARCIA DOMICHELLE Ot Z66 DO NOT RESUSCITATE 10/15/2019 GARCIA DOMICHELLE Ot 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 10/15/2019 GARCIA DOMICHELLE Ot Z95.1 PRESENCE OF AORTOCORONARY BYPASS GRAFT 10/15/2019 GARCIA DOMICHELLE Ot Z99.81 DEPENDENCE ON SUPPLEMENTAL OXYGEN 10/16/2019 SHIREEN AGARWAL Ot D50.9 IRON DEFICIENCY ANEMIA, UNSPECIFIED 10/16/2019 SHIREEN AGARWAL Ot D63.1 ANEMIA IN CHRONIC KIDNEY DISEASE 10/16/2019 SHIREEN AGARWAL Ot E03.9 HYPOTHYROIDISM, UNSPECIFIED 10/16/2019 SHIREEN AGARWAL Ot 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 10/16/2019 SHIREEN AGARWAL Ot E53.8 DEFICIENCY OF OTHER SPECIFIED B GROUP 10/16/2019 SHIREEN AGARWAL Ot E66.9 OBESITY, UNSPECIFIED 10/16/2019 SHIREEN AGARWAL Ot E78.5 HYPERLIPIDEMIA, UNSPECIFIED 10/16/2019 SHIREEN AGARWAL Ot 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 10/16/2019 SHIREEN AGARWAL Ot 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 10/16/2019 SHIREEN AGARWAL Ot I47.1 SUPRAVENTRICULAR [...] ADULT 10/16/2019 SHIREEN AGARWAL Ot Z79.899 OTHER HALFWAY (CURRENT) DRUG THERAPY 10/16/2019 SHIREEN AGARWAL Ot Z80.0 FAMILY HISTORY OF MALIGNANT NEOPLASM OF 10/18/2019 SHIREEN AGARWAL Ot D50.9 IRON DEFICIENCY ANEMIA, UNSPECIFIED 10/18/2019 SHIREEN AGARWAL Ot D63.1 ANEMIA IN CHRONIC KIDNEY DISEASE 10/18/2019 SHIREEN AGARWAL Ot E03.9 HYPOTHYROIDISM, UNSPECIFIED 10/18/2019 SHIREEN AGARWAL Ot 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 10/18/2019 SHIREEN AGARWAL Ot E53.8 DEFICIENCY OF OTHER SPECIFIED B GROUP 10/18/2019 SHIREEN AGARWAL Ot E66.9 OBESITY, UNSPECIFIED 10/18/2019 SHIREEN AGARWAL Ot E78.5 HYPERLIPIDEMIA, UNSPECIFIED 10/18/2019 SHIREEN AGARWAL Ot 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 10/18/2019 SHIREEN AGARWAL Ot 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 10/18/2019 SHIREEN AGARWAL Ot I47.1 SUPRAVENTRICULAR [...] ADULT 10/18/2019 SHIREEN AGARWAL Ot Z79.899 OTHER HALFWAY (CURRENT) DRUG THERAPY 10/18/2019 SHIREEN AGARWAL Ot Z80.0 FAMILY HISTORY OF MALIGNANT NEOPLASM OF 10/18/2019 SHIREEN AGARWAL Ot D50.9 IRON DEFICIENCY ANEMIA, UNSPECIFIED 10/18/2019 SHIREEN AGARWAL Ot D63.1 ANEMIA IN CHRONIC KIDNEY DISEASE 10/18/2019 SHIREEN AGARWAL Ot E03.9 HYPOTHYROIDISM, UNSPECIFIED 10/18/2019 SHIREEN AGARWAL Ot 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 10/18/2019 SHIREEN AGARWAL Ot E53.8 DEFICIENCY OF OTHER SPECIFIED B GROUP 10/18/2019 SHIREEN AGARWAL Ot E66.9 OBESITY, UNSPECIFIED 10/18/2019 SHIREEN AGARWAL Ot E78.5 HYPERLIPIDEMIA, UNSPECIFIED 10/18/2019 SHIREEN AGARWAL Ot 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 10/18/2019 SHIREEN AGARWAL Ot 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 10/18/2019 SHIREEN AGARWAL Ot I47.1 SUPRAVENTRICULAR [...] ADULT 10/18/2019 SHIREEN AGARWAL Ot Z79.899 OTHER HALFWAY (CURRENT) DRUG THERAPY 10/18/2019 SHIREEN AGARWAL Ot Z80.0 FAMILY HISTORY OF MALIGNANT NEOPLASM OF 10/20/2019 SHIREEN AGARWAL Ot D50.9 IRON DEFICIENCY ANEMIA, UNSPECIFIED 10/20/2019 SHIREEN AGARWAL Ot D63.1 ANEMIA IN CHRONIC KIDNEY DISEASE 10/20/2019 SHIREEN AGARWAL Ot E03.9 HYPOTHYROIDISM, UNSPECIFIED 10/20/2019 SHIREEN AGARWAL Ot 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 10/20/2019 SHIREEN AGARWAL Ot E53.8 DEFICIENCY OF OTHER SPECIFIED B GROUP 10/20/2019 SHIREEN AGARWAL Ot E66.9 OBESITY, UNSPECIFIED 10/20/2019 SHIREEN AGARWAL Ot E78.5 HYPERLIPIDEMIA, UNSPECIFIED 10/20/2019 SHIREEN AGARWAL Ot 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 10/20/2019 SHIREEN AGARWAL Ot 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 10/20/2019 SHIREEN AGARWAL Ot I47.1 SUPRAVENTRICULAR [...] ADULT 10/20/2019 SHIREEN AGARWAL Ot Z79.899 OTHER HOSPITAL SECURITY OFFICER (CURRENT) DRUG THERAPY 10/20/2019 SHIREEN AGARWAL Ot Z80.0 FAMILY HISTORY OF MALIGNANT NEOPLASM OF 10/20/2019 SHIREEN AGARWAL Ot D50.9 IRON DEFICIENCY ANEMIA, UNSPECIFIED 10/20/2019 SHIREEN AGARWAL Ot D63.1 ANEMIA IN CHRONIC KIDNEY DISEASE 10/20/2019 SHIREEN AGARWAL Ot E03.9 HYPOTHYROIDISM, UNSPECIFIED 10/20/2019 SHIREEN AGARWAL Ot 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 10/20/2019 SHIREEN AGARWAL Ot E53.8 DEFICIENCY OF OTHER SPECIFIED B GROUP 10/20/2019 SHIREEN AGARWAL Ot E66.9 OBESITY, UNSPECIFIED 10/20/2019 SHIREEN AGARWAL Ot E78.5 HYPERLIPIDEMIA, UNSPECIFIED 10/20/2019 SHIREEN AGARWAL Ot 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 10/20/2019 SHIREEN AGARWAL Ot 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 10/20/2019 SHIREEN AGARWAL Ot I47.1 SUPRAVENTRICULAR [...] ADULT 10/20/2019 SHIREEN AGARWAL Ot Z79.899 OTHER HALFWAY (CURRENT) DRUG THERAPY 10/20/2019 SHIREEN AGARWAL Ot Z80.0 FAMILY HISTORY OF MALIGNANT NEOPLASM OF 10/25/2019 SHIREEN AGARWAL Ot D50.9 IRON DEFICIENCY ANEMIA, UNSPECIFIED 10/25/2019 SHIREEN AGARWAL Ot D63.1 ANEMIA IN CHRONIC KIDNEY DISEASE 10/25/2019 SHIREEN AGARWAL Ot E03.9 HYPOTHYROIDISM, UNSPECIFIED 10/25/2019 SHIREEN AGARWAL Ot 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 10/25/2019 SHIREEN AGARWAL Ot E53.8 DEFICIENCY OF OTHER SPECIFIED B GROUP 10/25/2019 SHIREEN AGARWAL Ot E66.9 OBESITY, UNSPECIFIED 10/25/2019 SHIREEN AGARWAL Ot E78.5 HYPERLIPIDEMIA, UNSPECIFIED 10/25/2019 SHIREEN AGARWAL Ot 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 10/25/2019 SHIREEN AGARWAL Ot 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 10/25/2019 SHIREEN AGARWAL Ot I47.1 SUPRAVENTRICULAR TACHYCARDIA 10/25/2019 SHIREEN AGARWAL Ot I48.91 UNSPECIFIED ATRIAL FIBRILLATION 10/25/2019 SHIREEN AGARWAL Ot I50.30 UNSPECIFIED DIASTOLIC (CONGESTIVE) HEART 10/25/2019 SHIREEN AGARWAL Ot K29.51 UNSPECIFIED CHRONIC GASTRITIS WITH BLEED 10/25/2019 SHIREEN AGARWAL Solange Ot K31.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 10/25/2019 SHIREEN AGARWAL Solange Ot K44.9 DIAPHRAGMATIC HERNIA WITHOUT OBSTRUCTION 10/25/2019 SHIREEN AGARWAL Solange Ot K63.5 POLYP OF COLON 10/25/2019 ANY JJBLU Solange Ot K64.9 UNSPECIFIED HEMORRHOIDS 10/25/2019 SHIREEN GAARWAL Solange Ot K74.60 UNSPECIFIED CIRRHOSIS OF LIVER 10/25/2019 ANY JJBLU Solange Ot M19.90 UNSPECIFIED OSTEOARTHRITIS, UNSPECIFIED 10/25/2019 ANY SHIREEN Narvaez Ot N18.4 CHRONIC KIDNEY DISEASE, STAGE 4 (SEVERE) 10/25/2019 SHIREEN AGARWAL Solange Ot Z68.33 BODY MASS INDEX (BMI) 33.0-33.9, ADULT 10/25/2019 ANY JJBLU Solange Ot Z79.899 OTHER HOSPITAL SECURITY OFFICER (CURRENT) DRUG THERAPY 10/25/2019 SHIREEN AGARWAL Solange Ot Z80.0 FAMILY HISTORY OF MALIGNANT NEOPLASM OF 10/29/2019 JAMES TORRES MD Ot A41.9 SEPSIS, UNSPECIFIED ORGANISM 10/29/2019 JAMES TORRES MD Ot D50.0 IRON DEFICIENCY ANEMIA SECONDARY TO BLOO 10/29/2019 JAMES TORRES MD, Ot E03.9 HYPOTHYROIDISM, UNSPECIFIED 10/29/2019 JAMES TORRES MD Ot E11.6 5 TYPE 2 DIABETES MELLITUS WITH HYPERGLYCE 10/29/2019 JAMES TORRES MD Ot E86.0 DEHYDRATION 10/29/2019 JAMES TORRES MD, Ot F41.9 ANXIETY DISORDER, UNSPECIFIED 10/29/2019 JAMES TORRES MD, Ot G47.3 0 SLEEP APNEA, UNSPECIFIED 10/29/2019 JAMES TORRES MD Ot G81.9 4 HEMIPLEGIA, UNSPECIFIED AFFECTING LEFT N 10/29/2019 JAMES TORRES MD Ot 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 10/29/2019 JAMES TORRES MD, Ot I25.1 0 ATHSCL HEART DISEASE OF [place] CORONARY 10/29/2019 JAMES TORRES MD, Ot I25.2 OLD MYOCARDIAL INFARCTION 10/29/2019 GAULT MD, JAMES R Ot I48.0 PAROXYSMAL ATRIAL FIBRILLATION 10/29/2019 JAMES TORRES MD Ot I50.9 HEART FAILURE, UNSPECIFIED 10/29/2019 JAMES TORRES MD Ot I63.9 CEREBRAL INFARCTION, UNSPECIFIED 10/29/2019 JAMES TORRES MD Ot K31.8 11 ANGIODYSPLASIA OF STOMACH AND DUODENUM W 10/29/2019 JAMES TORRES MD Ot K74.6 0 UNSPECIFIED CIRRHOSIS OF LIVER 10/29/2019 JAMES TORRES MD Ot N17.9 ACUTE KIDNEY FAILURE, UNSPECIFIED 10/29/2019 JAMES TORRES MD Ot N18.9 CHRONIC KIDNEY DISEASE, UNSPECIFIED 10/29/2019 JAMES TORRES MD Ot N39.0 URINARY TRACT INFECTION, SITE NOT SPECIF 10/29/2019 JAMES TORRES MD Ot R25.1 TREMOR, UNSPECIFIED 10/29/2019 JAMES TORRES MD Ot R41.8 2 ALTERED MENTAL STATUS, UNSPECIFIED 10/29/2019 JAMES TORRES MD Ot R47.8 9 OTHER SPEECH DISTURBANCES 10/29/2019 JAMES TORRES MD Ot R56.9 UNSPECIFIED CONVULSIONS 10/29/2019 JAMES TORRES MD Ot R65.2 0 SEVERE SEPSIS WITHOUT SEPTIC SHOCK 10/29/2019 JAMES TORRES MD Ot T50.905A ADVERSE EFFECT OF UNSP DRUG/MEDS/BIOL CALDERON 10/29/2019 JAMES TORRES MD, Ot Z51.5 ENCOUNTER FOR PALLIATIVE CARE 10/29/2019 JAMES TORRES MD Ot Z66 DO NOT RESUSCITATE 10/29/2019 JAMES TORRES MD Ot Z87.8 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 10/29/2019 JAMES TORRES MD Ot Z95.1 PRESENCE OF AORTOCORONARY BYPASS GRAFT 10/29/2019 JAMES TORRES MD Ot Z95.5 PRESENCE OF CORONARY ANGIOPLASTY IMPLANT 11/05/2019 GARCIA DO, MICHELLE Ot D50.0 IRON DEFICIENCY ANEMIA SECONDARY TO BLOO 11/05/2019 GARCIA DO, MICHELLE Ot D70.9 NEUTROPENIA, UNSPECIFIED 11/05/2019 GARCIA DO, MICHELLE Ot E03.9 HYPOTHYROIDISM, UNSPECIFIED 11/05/2019 GARCIA DO, MICHELLE Ot E11.65 TYPE 2 DIABETES MELLITUS WITH HYPERGLYCE 11/05/2019 RADHA WOOD, MICHELLE Ot E53.8 DEFICIENCY OF OTHER SPECIFIED B GROUP 11/05/2019 RADHA WOOD, MICHELLE Ot E78.00 PURE HYPERCHOLESTEROLEMIA, UNSPECIFIED 11/05/2019 RADHA WOOD, MICHELLE Ot F03.90 UNSPECIFIED DEMENTIA WITHOUT BEHAVIORAL 11/05/2019 RADHA WOOD, MICHELLE Ot F41.9 ANXIETY DISORDER, UNSPECIFIED 11/05/2019 RADHA WOOD MICHELLE Ot G47.30 SLEEP APNEA, UNSPECIFIED 11/05/2019 RADHA WOOD MICHELLE Ot 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 11/05/2019 RADHA WOOD MICHELLE Ot 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 11/05/2019 RADHA WOOD MICHELLE Ot I25.2 [...] LOSS 11/05/2019 RADHA WOOD MICHELLE Ot 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 11/05/2019 RADHA WOOD MICHELLE Ot Z87.89 1 PERSONAL HISTORY OF NICOTINE DEPENDENCE 11/05/2019 RADHA WOOD MICHELLE Ot Z95.1 PRESENCE OF AORTOCORONARY BYPASS GRAFT 11/05/2019 RADHA WOOD MICHELLE Ot Z95.5 PRESENCE OF CORONARY ANGIOPLASTY IMPLANT 11/05/2019 RADHA WOOD MICHELLE Ot Z99.81 DEPENDENCE ON SUPPLEMENTAL OXYGEN 11/05/2019 RADHA WOOD, MICHELLE Ot D50.0 IRON DEFICIENCY ANEMIA SECONDARY TO BLOO 11/05/2019 RADHA WOOD MICHELLE Ot D70.9 NEUTROPENIA, UNSPECIFIED 11/05/2019 RADHA [...] Ot G47.30 SLEEP APNEA, UNSPECIFIED 11/05/2019 RADHA WOOD, MICHELLE Ot 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 11/05/2019 RADHA WOOD, MICHELLE Ot 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 11/05/2019 RADHA WOOD, MICHELLE Ot I25.2 [...] CHRONIC KIDNEY DISEASE, STAGE 3 (MODERAT 11/05/2019 GARCIA DO, MICHELLE Ot N39.0 URINARY TRACT INFECTION, SITE NOT SPECIF 11/05/2019 GARCIA DO, MICHELLE Ot R09.02 HYPOXEMIA 11/05/2019 GARCIA DO, MICHELLE Ot R63.4 ABNORMAL WEIGHT LOSS 11/05/2019 GARCIA DO, MICHELLE Ot Z79.4 HALFWAY (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 OF INSULIN 11/05/2019 RADHA WOOD MICHELLE Ot Z87.89 1 PERSONAL HISTORY OF NICOTINE DEPENDENCE 11/05/2019 GARCIA DO, MICHELLE Ot Z95.1 PRESENCE OF [...] MICHELLE Ot 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 11/06/2019 GARCIA DO, MICHELLE Ot I25.2 OLD MYOCARDIAL INFARCTION 11/06/2019 GARCIA DO, MICHELLE Ot I48.0 PAROXYSMAL ATRIAL FIBRILLATION 11/06/2019 GARCIA DO, MICHELLE Ot I50.9 HEART FAILURE, UNSPECIFIED 11/06/2019 GARCIA DO, MICHELLE Ot I87.2 VENOUS INSUFFICIENCY (CHRONIC) (PERIPHER 11/06/2019 GARCIA DO, MICHELLE Ot J02.9 ACUTE PHARYNGITIS, UNSPECIFIED 11/06/2019 GARCIA DO, MICHELLE Ot J18.9 PNEUMONIA, UNSPECIFIED ORGANISM 11/06/2019 GARCIA DO, MICHELLE Ot K31.81 1 ANGIODYSPLASIA OF STOMACH AND DUODENUM W 11/06/2019 GARCIA DO, MICHELLE Ot K74.60 UNSPECIFIED CIRRHOSIS OF LIVER 11/06/2019 GARCIA DO, MICHELLE Ot K76.6 PORTAL HYPERTENSION 11/06/2019 GARCIA DO, MICHELLE Ot N18.3 CHRONIC KIDNEY DISEASE, STAGE 3 (MODERAT 11/06/2019 GARCIA DO, MICHELLE Ot N39.0 URINARY TRACT INFECTION, SITE NOT SPECIF 11/06/2019 GARCIA DO, MICHELLE Ot R09.02 HYPOXEMIA 11/06/2019 GARCIA DO, MICHELLE Ot R63.4 ABNORMAL WEIGHT LOSS 11/06/2019 GARCIA DO, MICHELLE Ot Z79.4 HALFWAY (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 OF INSULIN 11/06/2019 GARCIA DO, MICHELLE Ot Z87.89 1 PERSONAL HISTORY OF NICOTINE DEPENDENCE 11/06/2019 GARCIA DO, MICHELLE Ot Z95.1 PRESENCE OF AORTOCORONARY BYPASS GRAFT 11/06/2019 GARCIA DO, MICHELLE Ot Z95.5 PRESENCE OF CORONARY ANGIOPLASTY IMPLANT 11/06/2019 GARCIA DO, MICHELLE Ot Z99.81 DEPENDENCE ON SUPPLEMENTAL OXYGEN [...] MICHELLE Ot 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 11/06/2019 RADHA WOOD, MICHELLE Ot I25.2 OLD MYOCARDIAL INFARCTION 11/06/2019 GARCIA DO, MICHELLE Ot I48.0 PAROXYSMAL ATRIAL FIBRILLATION 11/06/2019 RADHA WOOD, MICHELLE Ot I50.9 HEART FAILURE, UNSPECIFIED 11/06/2019 GARCIA DO, MICHELLE Ot I87.2 VENOUS INSUFFICIENCY (CHRONIC) (PERIPHER 11/06/2019 GARCIA DO, MICHELLE Ot J02.9 ACUTE PHARYNGITIS, UNSPECIFIED 11/06/2019 RADHA WOOD, MICHELLE Ot J18.9 PNEUMONIA, UNSPECIFIED ORGANISM 11/06/2019 RADHA WOOD, MICHELLE Ot K31.81 1 ANGIODYSPLASIA OF STOMACH AND DUODENUM W 11/06/2019 RADHA WOOD, MICHELLE Ot K74.60 UNSPECIFIED CIRRHOSIS OF LIVER 11/06/2019 RADHA WOOD, MICHELLE Ot K76.6 PORTAL HYPERTENSION 11/06/2019 RADHA WOOD, MICHELLE Ot N18.3 CHRONIC KIDNEY DISEASE, STAGE 3 (MODERAT 11/06/2019 RADHA WOOD, MICHELLE Ot N30.00 ACUTE CYSTITIS WITHOUT HEMATURIA 11/06/2019 RADHA WOOD, MICHELLE Ot R09.02 HYPOXEMIA 11/06/2019 RADHA WOOD, MICHELLE Ot R18.8 OTHER ASCITES 11/06/2019 RADHA WOOD MICHELLE Ot R63.4 ABNORMAL WEIGHT LOSS 11/06/2019 RADHA WOOD MICHELLE Ot Z79.4 HALFWAY (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 OF INSULIN 11/06/2019 RADHA WOOD MICHELLE Ot Z87.89 1 PERSONAL HISTORY OF NICOTINE DEPENDENCE 11/06/2019 RADHA WOOD MICHELLE Ot Z95.1 PRESENCE OF AORTOCORONARY BYPASS GRAFT 11/06/2019 RADHA WOOD MICHELLE Ot Z95.5 PRESENCE OF CORONARY ANGIOPLASTY IMPLANT 11/06/2019 RADHA WOOD MICHELLE Ot Z99.81 DEPENDENCE ON SUPPLEMENTAL OXYGEN 11/10/2019 SHIREEN AAGRWAL Ot D50.9 IRON DEFICIENCY ANEMIA, UNSPECIFIED 11/10/2019 SHIREEN AGARWAL Ot D63.1 ANEMIA IN CHRONIC KIDNEY DISEASE 11/10/2019 SHIREEN AGARWAL Ot E03.9 HYPOTHYROIDISM, UNSPECIFIED 11/10/2019 SHIREEN AGARWAL Ot 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 11/10/2019 SHIREEN AGARWAL Ot E53.8 DEFICIENCY OF OTHER SPECIFIED B GROUP 11/10/2019 SHIREEN AGARWAL Ot E66.9 OBESITY, UNSPECIFIED 11/10/2019 SHIREEN AGARWAL Ot E78.5 HYPERLIPIDEMIA, UNSPECIFIED 11/10/2019 SHIREEN AGARWAL Ot 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 11/10/2019 SHIREEN AGARWAL Ot 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 11/10/2019 SHIREEN AGARWAL Ot I47.1 SUPRAVENTRICULAR [...] ADULT 11/10/2019 SHIREEN AGARWAL Ot Z79.899 OTHER HOSPITAL SECURITY OFFICER (CURRENT) DRUG THERAPY 11/10/2019 SHIREEN AGARWAL Ot Z80.0 FAMILY HISTORY OF MALIGNANT NEOPLASM OF 11/16/2019 MALLORIE FATIMA APRN Ot D64.89 OTHER SPECIFIED ANEMIAS 11/16/2019 MALLORIE FATIMA APRN Ot E03 .9 HYPOTHYROIDISM, UNSPECIFIED 11/16/2019 MALLORIE FATIMA APRN Ot E11 .9 TYPE 2 DIABETES MELLITUS WITHOUT COMPLIC 11/16/2019 MALLORIE FATIMA APRN Ot E66 .9 OBESITY, UNSPECIFIED 11/16/2019 MALLORIE FATIMA APRN Ot F41 .9 ANXIETY DISORDER, UNSPECIFIED 11/16/2019 MALLORIE FATIMA APRN Ot I11 .0 HYPERTENSIVE HEART DISEASE WITH HEART FA 11/16/2019 MALLORIE FATIMA APRN Ot 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 11/16/2019 MALLORIE FATIMA APRN Ot I25 .2 OLD MYOCARDIAL INFARCTION 11/16/2019 MALLORIE FATIMA APRN Ot I50 .9 HEART FAILURE, UNSPECIFIED 11/16/2019 MALLORIE FATIMA APRN Ot K21 .9 GASTRO-ESOPHAGEAL REFLUX DISEASE WITHOUT 11/16/2019 MALLORIE FATIMA APRN Ot N39 .0 URINARY TRACT INFECTION, SITE NOT SPECIF 11/16/2019 MALLORIE FATIMA APRN Ot R42 DIZZINESS AND GIDDINESS 11/16/2019 MALLORIE FATIMA APRN Ot Z68.38 BODY MASS INDEX (BMI) 38.0-38.9, ADULT 11/16/2019 MALLORIE FATIMA APRN Ot Z79 .4 HALFWAY (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 OF INSULIN 11/16/2019 MALLORIE FATIMA APRN Ot Z80 .8 FAMILY HISTORY OF MALIGNANT NEOPLASM OF 11/16/2019 MALLORIE FATIMA APRN Ot Z82.49 FAMILY HX OF ISCHEM HEART DIS AND OTH DI 11/16/2019 MALLORIE FATIMA APRN Ot Z87.8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 11/16/2019 MALLORIE FATIMA APRN Ot Z88 .1 ALLERGY STATUS TO OTHER ANTIBIOTIC AGENT 11/16/2019 MALLORIE FATIMA APRN Ot Z88 .2 ALLERGY STATUS TO SULFONAMIDES STATUS 11/16/2019 MALLORIE FATIMA APRN Ot Z88 .8 ALLERGY STATUS TO OTH DRUG/MEDS/BIOL SUB 11/16/2019 MALLORIE FATIMA APRN Ot Z95 .1 PRESENCE OF AORTOCORONARY BYPASS GRAFT 11/16/2019 MALLORIE FATMIA APRN Ot Z95 .5 PRESENCE OF CORONARY ANGIOPLASTY IMPLANT 11/17/2019 KRUNAL KHOURY PHD, LULA Clement Ot I50.32 CHRONIC DIASTOLIC (CONGESTIVE) HEART KATY 11/20/2019 MALLORIE FATIMA APRN Ot D64.89 OTHER SPECIFIED ANEMIAS 11/20/2019 AKUA, MALLORIE Norris APRN Ot E03 .9 HYPOTHYROIDISM, UNSPECIFIED 11/20/2019 AKUA, MALLORIE Norris APRN Ot E11 .9 TYPE 2 DIABETES MELLITUS WITHOUT COMPLIC 11/20/2019 AKUA, MALLORIE Norris APRN Ot E66 .9 OBESITY, UNSPECIFIED 11/20/2019 MALLORIE FATIMA APRN Ot F41 .9 ANXIETY DISORDER, UNSPECIFIED 11/20/2019 FATIMA, MALLORIE Norris APRN Ot I11 .0 HYPERTENSIVE HEART DISEASE WITH HEART FA 11/20/2019 AKUA, MALLORIE Norris APRN Ot 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 11/20/2019 AKUA, MALLORIE Norris APRN Ot I25 .2 OLD MYOCARDIAL INFARCTION 11/20/2019 AKUA, MALLORIE Norris APRN Ot I50 .9 HEART FAILURE, UNSPECIFIED 11/20/2019 MALLORIE FATIMA APRN Ot K21 .9 GASTRO-ESOPHAGEAL REFLUX DISEASE WITHOUT 11/20/2019FATIMAMALLORIE BUI APRN Ot N39 .0 URINARY TRACT INFECTION, SITE NOT SPECIF 11/20/2019 MALLORIE FATIMA APRN Ot R42 DIZZINESS AND GIDDINESS 11/20/2019 MALLORIE FATIMA APRN Ot Z68.38 BODY MASS INDEX (BMI) 38.0-38.9, ADULT 11/20/2019 MALLORIE FATIMA APRN Ot Z79 .4 HOSPITAL SECURITY OFFICER (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 OF INSULIN 11/20/2019 MALLORIE FATIMA APRN Ot Z80 .8 FAMILY HISTORY OF MALIGNANT NEOPLASM OF 11/20/2019 MALLORIE FATIMA APRN Ot Z82.49 FAMILY HX OF ISCHEM HEART DIS AND OTH DI 11/20/2019 MALLORIE FATIMA APRN Ot Z87.8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 11/20/2019 MALLORIE FATIMA APRN Ot Z88 .1 ALLERGY STATUS TO OTHER ANTIBIOTIC AGENT 11/20/2019 MALLORIE FATIMA APRN Ot Z88 .2 ALLERGY STATUS TO SULFONAMIDES STATUS 11/20/2019 MALLORIE FATIMA APRN Ot Z88 .8 ALLERGY STATUS TO OT DRUG/MEDS/BIOL SUB 11/20/2019 MALLORIE FATIMA APRN Ot Z95 .1 PRESENCE OF AORTOCORONARY BYPASS GRAFT 11/20/2019 MALLORIE FATIMA APRN Ot Z95 .5 PRESENCE OF CORONARY ANGIOPLASTY IMPLANT 11/21/2019 NIA GABRIEL MD Ot D64.9 ANEMIA, UNSPECIFIED 11/21/2019 NIA GABRIEL MD Ot 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 11/21/2019 NIA GABRIEL MD Ot E78.49 OTHER HYPERLIPIDEMIA 11/21/2019 NIA GABRIEL MD Ot I12.9 HYPERTENSIVE CHRONIC KIDNEY DISEASE W ST 11/21/2019 NIA GABRIEL MD Ot N18.9 CHRONIC KIDNEY DISEASE, UNSPECIFIED 11/21/2019 SHIREEN AGARWAL Ot D50.9 IRON DEFICIENCY ANEMIA, UNSPECIFIED 11/21/2019 SHIREEN AGARWAL Ot D63.1 ANEMIA IN CHRONIC KIDNEY DISEASE 11/21/2019 SHIREEN AGARWAL Ot E03.9 HYPOTHYROIDISM, UNSPECIFIED 11/21/2019 SHIREEN AGARWAL Ot 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 11/21/2019 SHIREEN AGARWAL Ot E53.8 DEFICIENCY OF OTHER SPECIFIED B GROUP 11/21/2019 SHIREEN AGARWAL Ot E66.9 OBESITY, UNSPECIFIED 11/21/2019 SHIREEN AGARWAL Ot E78.5 HYPERLIPIDEMIA, UNSPECIFIED 11/21/2019 SHIREEN AGARWAL Ot 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 11/21/2019 SHIREEN AGARWAL Ot 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 11/21/2019 SHIREEN AGARWAL Ot I47.1 SUPRAVENTRICULAR TACHYCARDIA 11/21/2019 SHIREEN AGARWAL Ot I48.91 UNSPECIFIED ATRIAL FIBRILLATION 11/21/2019 SHIREEN AGARWAL Ot I50.30 UNSPECIFIED DIASTOLIC (CONGESTIVE) HEART 11/21/2019 SHIREEN AGARWAL Ot K29.51 UNSPECIFIED CHRONIC GASTRITIS WITH BLEED 11/21/2019 SHIREEN AGARWAL Ot K31.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 11/21/2019 SHIREEN AGARWAL Ot K44.9 DIAPHRAGMATIC HERNIA WITHOUT OBSTRUCTION 11/21/2019 SHIREEN AGARWAL Ot K63.5 POLYP OF COLON 11/21/2019 SHIREEN AGARWAL Ot K64.9 UNSPECIFIED HEMORRHOIDS 11/21/2019 SHIREEN AGARWAL Ot K74.60 UNSPECIFIED CIRRHOSIS OF LIVER 11/21/2019 SHIREEN AGARWAL Ot M19.90 UNSPECIFIED OSTEOARTHRITIS, UNSPECIFIED 11/21/2019 SHIREEN AGARWAL Ot N18.4 CHRONIC KIDNEY DISEASE, STAGE 4 (SEVERE) 11/21/2019 SHIREEN AGARWAL Ot Z68.33 BODY MASS INDEX (BMI) 33.0-33.9, ADULT 11/21/2019 SHIREEN AGARWAL Ot Z79.899 OTHER HALFWAY (CURRENT) DRUG THERAPY 11/21/2019 SHIREEN AGARWAL Ot Z80.0 FAMILY HISTORY OF MALIGNANT NEOPLASM OF 11/21/2019 HARVEY KHOURY, NIA Ot D64.9 ANEMIA, UNSPECIFIED 11/21/2019 HARVEY KHOURY, NIA Ot 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 11/21/2019 HARVEY KHOURY, NIA Ot E78.49 OTHER HYPERLIPIDEMIA 11/21/2019 HARVEY KHOURY, NIA Ot I12.9 HYPERTENSIVE CHRONIC KIDNEY DISEASE W ST 11/21/2019 HARVEY KHOURY, NIA Ot N18.9 CHRONIC KIDNEY DISEASE, UNSPECIFIED 11/27/2019 KRUNAL KHOURY PHD, LULA Clement Ot I50.32 CHRONIC DIASTOLIC (CONGESTIVE) HEART KATY 11/28/2019 KRUNAL KHOURY PHD, LULA Clement Ot I50.32 CHRONIC DIASTOLIC (CONGESTIVE) HEART KATY 11/30/2019 MALLORIE FATIMA APRN Ot E03 .9 HYPOTHYROIDISM, UNSPECIFIED 11/30/2019 MALLORIE FATIMA APRN Ot E11 .9 TYPE 2 DIABETES MELLITUS WITHOUT COMPLIC 11/30/2019 MALLORIE FATIMA APRN Ot I11 .0 HYPERTENSIVE HEART DISEASE WITH HEART FA 11/30/2019 MALLORIE FATIMA APRN Ot 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 11/30/2019 MALLORIE FATIMA APRN Ot I25 .2 OLD MYOCARDIAL INFARCTION 11/30/2019 MALLORIE FATIMA APRN Ot I50 .9 HEART FAILURE, UNSPECIFIED 11/30/2019 MALLORIE FATIMA APRN Ot K21 .9 GASTRO-ESOPHAGEAL REFLUX DISEASE WITHOUT 11/30/2019 MALLORIE FATIMA APRN Ot R41 .0 DISORIENTATION, UNSPECIFIED 11/30/2019 MALLORIE FATIMA APRN Ot R53 .1 WEAKNESS 11/30/2019 MALLORIE FATIMA APRN Ot Z79 .4 HALFWAY (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 OF INSULIN 11/30/2019 MALLORIE FATIMA APRN Ot Z79.890 HORMONE REPLACEMENT THERAPY 11/30/2019 MALLORIE FATIMA APRN Ot Z80 .8 FAMILY HISTORY OF MALIGNANT NEOPLASM OF 11/30/2019 MALLORIE FATIMA APRN Ot Z82.49 FAMILY HX OF ISCHEM HEART DIS AND OTH DI 11/30/2019 MALLORIE FATIMA APRN Ot Z87.8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 11/30/2019 MALLORIE FATIMA APRN Ot Z88 .1 ALLERGY STATUS TO OTHER ANTIBIOTIC AGENT 11/30/2019 MALLORIE FATIMA APRN Ot Z88 .2 ALLERGY STATUS TO SULFONAMIDES STATUS 11/30/2019 MALLORIE FATIMA APRN Ot Z88 .8 ALLERGY STATUS TO OT DRUG/MEDS/BIOL SUB 11/30/2019 MALLORIE FATIMA APRN Ot Z95 .1 PRESENCE OF AORTOCORONARY BYPASS GRAFT 11/30/2019 MALLORIE FATIMA APRN Ot Z95 .5 PRESENCE OF CORONARY ANGIOPLASTY IMPLANT 12/05/2019 MALLORIE FATIMA APRN Ot E03 .9 HYPOTHYROIDISM, UNSPECIFIED 12/05/2019 MALLORIE FATIMA APRN Ot E11 .9 TYPE 2 DIABETES MELLITUS WITHOUT COMPLIC 12/05/2019 MALLORIE FATIMA APRN Ot I11 .0 HYPERTENSIVE HEART DISEASE WITH HEART FA 12/05/2019 MALLORIE FATIMA APRN Ot 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 12/05/2019 MALLORIE FATIMA APRN Ot I25 .2 OLD MYOCARDIAL INFARCTION 12/05/2019 MALLORIE FATIMA APRN Ot I50 .9 HEART FAILURE, UNSPECIFIED 12/05/2019 MALLORIE FATIMA APRN Ot K21 .9 GASTRO-ESOPHAGEAL REFLUX DISEASE WITHOUT 12/05/2019 MALLORIE FATIMA APRN Ot R41 .0 DISORIENTATION, UNSPECIFIED 12/05/2019 MALLORIE FATIMA APRN Ot R53 .1 WEAKNESS 12/05/2019 MALLORIE FATIMA APRN Ot Z79 .4 HOSPITAL SECURITY OFFICER (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 OF INSULIN 12/05/2019 MALLORIE FATIMA APRN Ot Z79.890 HORMONE REPLACEMENT THERAPY 12/05/2019 MALLORIE FATIMA APRN Ot Z80 .8 FAMILY HISTORY OF MALIGNANT NEOPLASM OF 12/05/2019 MALLORIE FATIMA APRN Ot Z82.49 FAMILY HX OF ISCHEM HEART DIS AND OTH DI 12/05/2019 MALLORIE FATIMA APRN Ot Z87.8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 12/05/2019 MALLORIE FATIMA APRN Ot Z88 .1 ALLERGY STATUS TO OTHER ANTIBIOTIC AGENT 12/05/2019 MALLORIE FATIMA APRN Ot Z88 .2 ALLERGY STATUS TO SULFONAMIDES STATUS 12/05/2019 MALLORIE FATIMA APRN Ot Z88 .8 ALLERGY STATUS TO OTH DRUG/MEDS/BIOL SUB 12/05/2019 MALLORIE FATIMA APRN Ot Z95 .1 PRESENCE OF AORTOCORONARY BYPASS GRAFT 12/05/2019 MALLORIE FATIMA APRN Ot Z95 .5 PRESENCE OF CORONARY ANGIOPLASTY IMPLANT 12/05/2019 SHIREEN AGARWAL Ot D50.9 IRON DEFICIENCY ANEMIA, UNSPECIFIED 12/05/2019 SHIREEN AGARWAL Ot D63.1 ANEMIA IN CHRONIC KIDNEY DISEASE 12/05/2019 SHIREEN AGARWAL Ot E03.9 HYPOTHYROIDISM, UNSPECIFIED 12/05/2019 SHIREEN AGARWAL Ot 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 12/05/2019 SHIREEN AGARWAL Ot E53.8 DEFICIENCY OF OTHER SPECIFIED B GROUP 12/05/2019 SHIREEN AGARWAL Ot E66.9 OBESITY, UNSPECIFIED 12/05/2019 SHIREEN AGARWAL Ot E78.5 HYPERLIPIDEMIA, UNSPECIFIED 12/05/2019 SHIREEN AGARWAL Ot 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 12/05/2019 SHIREEN AGARWAL Ot 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 12/05/2019 SHIREEN AGARWAL Ot I47.1 SUPRAVENTRICULAR TACHYCARDIA 12/05/2019 SHIREEN AGARWAL Ot I48.91 UNSPECIFIED ATRIAL FIBRILLATION 12/05/2019 SHIREEN AGARWAL Ot I50.30 UNSPECIFIED DIASTOLIC (CONGESTIVE) HEART 12/05/2019 SHIREEN AGARWAL Ot K29.51 UNSPECIFIED CHRONIC GASTRITIS WITH BLEED 12/05/2019 SHIREEN AGARWAL Solange Ot K31.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 12/05/2019 ANY SHIREEN Solange Ot K44.9 DIAPHRAGMATIC HERNIA WITHOUT OBSTRUCTION 12/05/2019 ANYSHIREEN Ot K63.5 POLYP OF COLON 12/05/2019 ANYJJBLU Solange Ot K64.9 UNSPECIFIED HEMORRHOIDS 12/05/2019 ANYJJBLU Solange Ot K74.60 UNSPECIFIED CIRRHOSIS OF LIVER 12/05/2019 ANYJJBLU Solange Ot M19.90 UNSPECIFIED OSTEOARTHRITIS, UNSPECIFIED 12/05/2019 SHIREEN AGARWAL Solange Ot N18.4 CHRONIC KIDNEY DISEASE, STAGE 4 (SEVERE) 12/05/2019 ANY JJBLU Solange Ot Z68.33 BODY MASS INDEX (BMI) 33.0-33.9, ADULT 12/05/2019 SHIREEN AGARWAL Solange Ot Z79.899 OTHER HALFWAY (CURRENT) DRUG THERAPY 12/05/2019 ANY SHIREEN Solange Ot Z80.0 FAMILY HISTORY OF MALIGNANT NEOPLASM OF 12/05/2019 CARLIN DOYAKOVA Arnold Ot D63.1 ANEMIA IN CHRONIC KIDNEY DISEASE 12/05/2019 CARLIN DOYAKOVA K Ot E03.9 HYPOTHYROIDISM, UNSPECIFIED 12/05/2019 CARLIN DO JOSR K Ot 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 12/05/2019 CARLIN DOYAKOVA K Ot E66.9 OBESITY, UNSPECIFIED 12/05/2019 CARLIN DOYAKOVA K Ot E72.20 DISORDER OF UREA CYCLE METABOLISM, UNSPE 12/05/2019 CARLIN DOYAKOVA Arnold Ot F41.9 ANXIETY DISORDER, UNSPECIFIED 12/05/2019 CARLIN DOYAKOVA K Ot 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 12/05/2019 CARLIN DOYAKOVA Arnold Ot 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 12/05/2019 CARLIN YAKOV WOODA K Ot I25.2 OLD MYOCARDIAL INFARCTION 12/05/2019 CARLIN DO JOSR K Ot I50.9 HEART FAILURE, UNSPECIFIED 12/05/2019 CARLIN DOYAKOVA Arnold Ot K21.9 GASTRO-ESOPHAGEAL REFLUX DISEASE WITHOUT 12/05/2019 [facility], JOSR K Ot N18.9 CHRONIC KIDNEY DISEASE, UNSPECIFIED 12/05/2019 [facility], JOSR Arnold Ot Z68.41 BODY MASS INDEX (BMI) 40.0-44.9, ADULT 12/05/2019 [facility] JOSR Arnold Ot Z79.4 HALFWAY (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 OF INSULIN 12/05/2019 [facility] JOSR K Ot Z79.890 HORMONE REPLACEMENT THERAPY 12/05/[facility].8 FAMILY HISTORY OF MALIGNANT NEOPLASM OF [facility]/05[facility] Z[facility].49 FAMILY HX OF ISCHEM HEART DIS AND OTH DI 12/05/2019 [facility] JOSR K Ot Z87.8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 12/05/2019 [facility] JOSR Arnold Ot Z88.1 ALLERGY STATUS TO OTHER ANTIBIOTIC AGENT 12/05/2019 [facility] Ot Z88.2 ALLERGY STATUS TO SULFONAMIDES STATUS 12/05/[facility].8 ALLERGY STATUS TO OT DRUG/MEDS/BIOL SUB 12/05/2019 [facility] Ot Z95.1 PRESENCE OF AORTOCORONARY BYPASS GRAFT 12/05/[facility].5 PRESENCE OF CORONARY ANGIOPLASTY IMPLANT 12/12/2019 SHIREEN AGARWAL Ot D50.9 IRON DEFICIENCY ANEMIA, UNSPECIFIED 12/12/2019 SHIREEN AGARWAL Ot D63.1 ANEMIA IN CHRONIC KIDNEY DISEASE 12/12/2019 SHIREEN AGARWAL Ot E03.9 HYPOTHYROIDISM, UNSPECIFIED 12/12/2019 SHIREEN AGARWAL Ot 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 12/12/2019 SHIREEN AGARWAL Ot E53.8 DEFICIENCY OF OTHER SPECIFIED B GROUP 12/12/2019 SHIREEN AGARWAL Ot E66.9 OBESITY, UNSPECIFIED 12/12/2019 SHIREEN AGARWAL Ot E78.5 HYPERLIPIDEMIA, UNSPECIFIED 12/12/2019 SHIREEN AGARWAL Ot 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 12/12/2019 SHIREEN AGARWAL Ot 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 12/12/2019 SHIREEN AGARWAL Solange Ot I47.1 SUPRAVENTRICULAR TACHYCARDIA 12/12/2019 ANYSHIREEN Ot I48.91 UNSPECIFIED ATRIAL FIBRILLATION 12/12/2019 ANYSHIREEN Ot I50.30 UNSPECIFIED DIASTOLIC (CONGESTIVE) HEART 12/12/2019 ANYSHIREEN Ot K29.51 UNSPECIFIED CHRONIC GASTRITIS WITH BLEED 12/12/2019 ANYSHIREEN Ot K31.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 12/12/2019 ANYSHIREEN Ot K44.9 DIAPHRAGMATIC HERNIA WITHOUT OBSTRUCTION 12/12/2019 ANYSHIREEN Ot K63.5 POLYP OF COLON 12/12/2019 ANYSHIREEN Ot K64.9 UNSPECIFIED HEMORRHOIDS 12/12/2019 ANYSHIREEN Ot K74.60 UNSPECIFIED CIRRHOSIS OF LIVER 12/12/2019 ANYSHIREEN Ot M19.90 UNSPECIFIED OSTEOARTHRITIS, UNSPECIFIED 12/12/2019 ANYSHIREEN Ot N18.4 CHRONIC KIDNEY DISEASE, STAGE 4 (SEVERE) 12/12/2019 ANYSHIREEN Ot Z68.33 BODY MASS INDEX (BMI) 33.0-33.9, ADULT 12/12/2019 ANYJJBLU Solange Ot Z79.899 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 HOSPITAL SECURITY OFFICER (CURRENT) DRUG THERAPY 12/12/2019 ANYSHIREEN Ot Z80.0 FAMILY HISTORY OF MALIGNANT NEOPLASM OF 12/15/2019 CARLIN JOSR WOOD Ot D63.1 ANEMIA IN CHRONIC KIDNEY DISEASE 12/15/2019 CARLIN JOSR WOOD Ot E03.9 HYPOTHYROIDISM, UNSPECIFIED 12/15/2019 CARLIN JOSR WOOD Ot 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 12/15/2019 CARLIN JOSR WOOD Ot E66.9 OBESITY, UNSPECIFIED 12/15/2019 CARLIN JOSR WOOD Ot E72.20 DISORDER OF UREA CYCLE METABOLISM, UNSPE 12/15/2019 CARLIN JOSR WOOD Ot F41.9 ANXIETY DISORDER, UNSPECIFIED 12/15/2019 CARLIN JOSR WOOD Ot 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 12/15/2019 CARLIN JOSR WOOD Ot 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 12/15/2019 [facility], JOSR K Ot I25.2 OLD MYOCARDIAL INFARCTION 12/15/2019 [facility], JOSR K Ot I50.9 HEART FAILURE, UNSPECIFIED 12/15/2019 [facility], JOSR K Ot K21.9 GASTRO-ESOPHAGEAL REFLUX DISEASE WITHOUT 12/15/2019 [facility], JOSR K Ot N18.9 CHRONIC KIDNEY DISEASE, UNSPECIFIED 12/15/2019 [facility], JOSR K Ot Z68.41 BODY MASS INDEX (BMI) 40.0-44.9, ADULT 12/15/2019 [facility] JOSR Arnold Ot Z79.4 HALFWAY (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 OF INSULIN 12/15/2019 [facility] JOSR K Ot Z79.890 HORMONE REPLACEMENT THERAPY 12/15/2019 [facility], JOSR K Ot Z80.8 FAMILY HISTORY OF MALIGNANT NEOPLASM OF 12/15/2019 [facility] JOSR K Ot Z82.49 FAMILY HX OF ISCHEM HEART DIS AND OTH DI 12/15/2019 [facility] JOSR Barrett Ot Z87.8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 12/15/2019 [facility] JOSR K Ot Z88.1 ALLERGY STATUS TO OTHER ANTIBIOTIC AGENT 12/15/2019 [facility] JOSR K Ot Z88.2 ALLERGY STATUS TO SULFONAMIDES STATUS 12/15/2019 [facility] JOSR K Ot Z88.8 ALLERGY STATUS TO OTH DRUG/MEDS/BIOL SUB 12/15/2019 [facility] JOSR K Ot Z95.1 PRESENCE OF AORTOCORONARY BYPASS GRAFT 12/15/2019 [facility] JOSR Arnold Ot Z95.5 PRESENCE OF CORONARY ANGIOPLASTY IMPLANT 12/16/2019 MALLORIE FATIMA APRN Ot E03 .9 HYPOTHYROIDISM, UNSPECIFIED 12/16/2019 MALLORIE FATIMA HAND TOOL LAPPER Ot E11 .9 TYPE 2 DIABETES MELLITUS WITHOUT COMPLIC 12/16/2019 MALLORIE FATIMA APRN Ot I11 .0 HYPERTENSIVE HEART DISEASE WITH HEART FA 12/16/2019 MALLORIE FATIMA APRN Ot 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 12/16/2019 MALLORIE FATIMA APRN Ot I25 .2 OLD MYOCARDIAL INFARCTION 12/16/2019 MALLORIE FATIMA APRN Ot I50 .9 HEART FAILURE, UNSPECIFIED 12/16/2019 MALLORIE FATIMA APRN Ot K21 .9 GASTRO-ESOPHAGEAL REFLUX DISEASE WITHOUT 12/16/2019 MALLORIE FATIMA APRN Ot R41 .0 DISORIENTATION, UNSPECIFIED 12/16/2019 MALLORIE FATIMA APRN Ot R53 .1 WEAKNESS 12/16/2019 MALLORIE FATIMA APRN Ot Z79 .4 HALFWAY (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 OF INSULIN 12/16/2019 MALLORIE FATIMA APRN Ot Z79.890 HORMONE REPLACEMENT THERAPY 12/16/2019 MALLORIE FATIMA APRN Ot Z80 .8 FAMILY HISTORY OF MALIGNANT NEOPLASM OF 12/16/2019 MALLORIE FATIMA APRN Ot Z82.49 FAMILY HX OF ISCHEM HEART DIS AND OTH DI 12/16/2019 MALLORIE FATIMA APRN Ot Z87.8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 12/16/2019 MALLORIE FATIMA APRN Ot Z88 .1 ALLERGY STATUS TO OTHER ANTIBIOTIC AGENT 12/16/2019 MALLORIE FATIMA APRN Ot Z88 .2 ALLERGY STATUS TO SULFONAMIDES STATUS 12/16/2019 MALLORIE FATIMA APRN Ot Z88 .8 ALLERGY STATUS TO OTH DRUG/MEDS/BIOL SUB 12/16/2019 MALLORIE FATIMA APRN Ot Z95 .1 PRESENCE OF AORTOCORONARY BYPASS GRAFT 12/16/2019 MALLORIE FATIMA APRN Ot Z95 .5 PRESENCE OF CORONARY ANGIOPLASTY IMPLANT 12/21/2019 KIERAN KHOURY, Wei BRANDON Ot I47 .1 SUPRAVENTRICULAR TACHYCARDIA 12/21/2019 Wei ALCARAZ MD Ot I48.91 UNSPECIFIED ATRIAL FIBRILLATION 12/21/2019 JAMES TORRES MD Ot E03.9 HYPOTHYROIDISM, UNSPECIFIED 12/21/2019 Ot I50.32 CHR ONIC DIASTOLIC (CONGESTIVE) HEART KATY 12/24/2019 HUSSAIN MOULTON MD Ot D50. 0 IRON DEFICIENCY ANEMIA SECONDARY TO BLOO 12/24/2019 HUSSAIN MOULTON MD Ot E03. 9 HYPOTHYROIDISM, UNSPECIFIED 12/24/2019 HUSSAIN MOULTON MD Ot E11. 9 TYPE 2 DIABETES MELLITUS WITHOUT COMPLIC 12/24/2019 HUSSAIN MOULTON MD Ot E66. 9 OBESITY, UNSPECIFIED 12/24/2019 HUSSAIN MOULTON MD Ot E72. 20 DISORDER OF UREA CYCLE METABOLISM, UNSPE 12/24/2019 HUSSAIN MOULTON MD Ot G89. 29 OTHER CHRONIC PAIN 12/24/2019 HUSSAIN MOULTON MD, Ot I10 ESSENTIAL (PRIMARY) HYPERTENSION 12/24/2019 HUSSAIN MOULTON MD, Ot I25. 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 12/24/2019 HUSSAIN MOULTON MD, Ot I25. 2 OLD MYOCARDIAL INFARCTION 12/24/2019 HUSSAIN MOULTON MD Ot K21. 9 GASTRO-ESOPHAGEAL REFLUX DISEASE WITHOUT 12/24/2019 HUSSAIN MOULTON MD Ot M54. 9 DORSALGIA, UNSPECIFIED 12/24/2019 HUSSAIN MOULTON MD, Ot R11. 2 NAUSEA WITH VOMITING, UNSPECIFIED 12/24/2019 HUSSAIN MOULTON MD, Ot Z20.828 CONTACT W AND EXPOSURE TO OTH VIRAL COMM 12/24/2019 HUSSAIN MOULTON MD Ot Z68. 37 BODY MASS INDEX (BMI) 37.0-37.9, ADULT 12/24/2019 HUSSAIN MOULTON MD, Ot Z79. 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 8 FAMILY HISTORY OF MALIGNANT NEOPLASM OF 12/24/2019 HUSSAIN MOULTON MD Ot Z82. 49 FAMILY HX OF ISCHEM HEART DIS AND OTH DI 12/24/2019 HUSSAIN MOULTON MD Ot Z87.8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 12/24/2019 HUSSAIN MOULTON MD, Ot Z88. 1 ALLERGY STATUS TO OTHER ANTIBIOTIC AGENT 12/24/2019 HUSSAIN MOULTON MD, Ot Z88. 2 ALLERGY STATUS TO SULFONAMIDES STATUS 12/24/2019 HUSSAIN MOULTON MD, Ot Z88. 5 ALLERGY STATUS TO NARCOTIC AGENT STATUS 12/24/2019 HUSSAIN MOULTON MD, Ot Z88. 8 ALLERGY STATUS TO OTH DRUG/MEDS/BIOL SUB 01/05/2020 Ot I50.32 CHR ONIC DIASTOLIC (CONGESTIVE) HEART KATY Procedures Code Description Performed By Per fred On PROC EDURE ON SINGLE VESSEL 05/21/2010 00.45 INSE RTION OF ONE VASCULAR STENT 05/21/2010 00.66 PERC TRANSLUMINAL CORON ANGIOPLASTY PTCA 05/21/2010 36.07 INSR T OF DRUG-ELUTING CORON ARTERY STENT 05/21/2010 37.22 LEFT HEART CARDIAC CATH 05/21/2010 88.53 LT H EART ANGIOCARDIOGRAM 05/21/2010 88.56 SAE RYAN ARTERIOGR-2 CATH 05/21/2010 [id number] ME ASURE OF CARDIAC SAMPL PRESSURE, L H 01/30/2017 [id number] FL UOROSCOPY OF MULT COR ART USING L OSM 01/30/2017 [id number] FL UOROSCOPY OF LEFT HEART USING LOW OSMO 01/30/2017 [id number] ME ASURE OF CARDIAC SAMPL PRESSURE, L H 02/12/2018 [id number] FL UOROSCOPY OF MULT COR ART USING L OSM 02/12/[id number] GLASGOW OF BILATERAL LUNGS, ENDO, DIAGN 05/30/2018 [id number] EX TRACTION OF RIGHT MAIN BRONCHUS, ENDO, 05/30/2018 [id number] EX TRACTION OF LEFT MAIN BRONCHUS, ENDO, 05/30/2018 [id number] RE SPIRATORY VENTILATION, 24- 96 CONSECUTI 05/30/2018 [id number] IN TRODUCTION OF ANTI- INFLAMMATORY INTO J [...] ABO+Rh group AP NRG Transfusion band number [id number] NRG Blood group antibody screen POSITIVE NR [...] 1:45 RED CELLS LEUKO REDUCED AS1 P [facility] TRFSD 06/12/17 0855 [facility] [id number] - 06/10/17 11:45 [id number] SPECIMEN AVAILABLE [facility] Blood type T Indirect antibody screen pa myron - 06/10/17 11:45 ABO+Rh group AP [facility] Transfusion band number [id number] [facility] Blood group antibody screen POSITIVE NR G Blood group antibodies identified - 05/16 12/29 11:45 Blood group antibodies identified JKA [facility] Comprehensive metabolic panel - 06/10/17 11:45 Serum [...] plasma ferritin measurement (mass/volume) 45.0 % 15.0-150.0 [id number] - 07/01/17 12:54 [id number] SPECIMEN AVAILABLE NRG Complete blood count (CBC) [...] ABO+Rh group AP NRG Transfusion band number [id number] NRG Blood group antibody screen NEGATIVE NR [...] culture - 10/05/17 00:43 Bacterial urine culture [id number] NRG COLONY COUNT >100,000/ML NRG FTX;REPORTABLE SENSITIVITY [...] by glucometer (mas s/volume) 356 mg/dL 70-110 [id number] - 11/03/17 13:10 [id number] SPECIMEN AVAILABLE [facility] Lipid 1996 panel - 11/06/17 11:40 Serum [...] CELLS LEUKO REDUCED AS1 T RANSFUSED 11/06/171947 [facility] Blood type T Indirect antibody screen pa myron - 11/06/17 11:40 ABO+Rh group AP [facility] Transfusion band number [id number] [facility] Blood group antibody screen NEGATIVE [facility] Comprehensive metabolic panel - 11/06/17 11:40 Serum [...] calculation of estimated glomerular filtration rate 42 [facility] Serum or plasma glucose measurement (mass/volume) 126 [...] LEUKO REDUCED AS1 T RANSFUSED 02/11/18 0229 [facility] Blood type T Indirect antibody screen pa [...] g/dL 3.2-4.5 CALCIUM CORRECTED 9.4 mg/dL 8.5-10.1 [id number] - 04/29/18 16:30 Screening antinuclear antibody (IVON) [...] Non-Reactive Immunoglobulin G subclass panel - 16:30 [id number] 1631 % 672-1680 Immunoglobulin G1 measurement 994 [...] ABO+Rh group AP NRG Transfusion band number [id number] NRG Blood group antibody screen NEGATIVE NR [...] OF GROWTH Isolated NRG Bacterial blood culture [id number] NRG RML SENSITIVITY MAIN LAB - 05/20/18 [...] culture - 05/20/18 21:38 Bacterial urine culture [id number] NRG COLONY COUNT >100,000/ML NRG FTX;REPORTABLE RML SENT SENSITIVITY REPORT 12/9 09 :05 NRG FREE TEXT ENTRY 2 [...] ABO+Rh group AP NRG Transfusion band number [id number] NRG Blood group antibody screen NEGATIVE NR [...] 05/22 16:05 NRG Bacterial catheter tip culture [id number] NR RML Sensitivity Panel - 05/21/18 17:10 [...] ABO+Rh group AP NRG Transfusion band number [id number] NRG Blood group antibody screen NEGATIVE NR [...] culture - 05/28/18 15:15 Bacterial urine culture [id number] NRG COLONY COUNT 30,000 CFU/ML NRG FTX;REPORTABLE [...] culture - 05/30/18 21:50 Bacterial urine culture [id number] NRG COLONY COUNT 40,000 CFU/ML NRG FTX;REPORTABLE [...] G Measurement of body temperature 98.8 NRG [id number] - 05/31/18 06:00 Cytologic examination of Papanicolaou smear by edgari blu SEE FOOTNOTE NRG Sputum Gram stain [...] 10:05 NRG C FUNGUS SPUTUM FLUID TISSUE [id number] N RG Arterial blood gas measurement - [...] NRG Blood type T Indirect antibody screen [facility] - 05/31/18 12:15 ABO+Rh group AP NRG Transfusion band number [id number] NRG Blood group antibody screen NEGATIVE NR [...] 99.4 NRG Whole blood hemoglobin and hematocrit [facility] - 05/31/18 16:58 Venous blood hemoglobin [...] mg/dL 8.5-10.1 Whole blood hemoglobin and hematocrit [facility] - 06/21/18 10:52 Venous blood hemoglobin measurement (mass/volume) 8.3 g/dL 11.5-16.0 Blood hematocrit (volume fraction) 28 % 35-52 Serum or plasma lithium measurement (mol es/volume) - 06/21/18 10:52 BNP level 300.7 pg/mL <100.0 RED CELLS LEUKO REDUCED AS1 - 06/21/18 1 0:52 RED CELLS LEUKO REDUCED AS1 T RANSFUSED 06/22/18 1715 [facility] Blood type T Indirect antibody screen [facility] - 06/21/18 10:52 ABO+Rh group AP NR Transfusion band number [id number] NR Blood group antibody screen NEGATIVE NR [...] CELLS LEUKO REDUCED AS1 T RANSFUSED 06/24/181944 NR Blood type T Indirect antibody screen pa myron - 06/24/18 14:10 ABO+Rh group AP NR Transfusion band number [id number] NR Blood group antibody screen NEGATIVE NR [...] 30.8 g/dL 32.0-36.0 MCV 96.0 fL 80.0-97.0 Dawson% 10.3 % 0.0-12.0 MPV 10.4 fL 7.4-10.0 Ryan% 66.0 % 37.0-80.0 Plt 145 K/uL 150-400 RBC 3.21 M/uL 3.60-5.00 RDW 16.5 % 11.6-14.8 WBC 5.83 K/uL 5.00-10.00 Ryan 3.85 K/uL 2.00-6.90 Dawson 0.6 K/uL 0.0-0.9 Baso 0.0 K/uL 0.0-0.2 CBC with Auto Diff - 07/19/18 13:45 Baso% 0.50 % 0.00-2.50 Eos 0.4 K/uL 0.0-0.7 Eos% 8.4 % 0.0-7.0 Hct 28.9 % 36.0-46.0 Hgb 8.9 g/dL 13.0-15.0 Lym 0.96 K/uL 0.60-3.40 Lym% 22.5 % 10.0-50.0 MCH 29.5 pg 27.0-31.0 MCHC 30.8 g/dL 32.0-36.0 MCV 95.7 fL 80.0-97.0 Dawson% 11.5 % 0.0-12.0 MPV 10.8 fL 7.4-10.0 Ryan% 57.1 % 37.0-80.0 Plt 129 K/uL 150-400 RBC 3.02 M/uL 3.60-5.00 RDW 16.5 % 11.6-14.8 WBC 4.27 K/uL 5.00-10.00 Ryan 2.44 K/uL 2.00-6.90 Dawson 0.5 K/uL 0.0-0.9 Baso 0.0 K/uL 0.0-0.2 CBC with Auto Diff - 07/26/18 14:56 Baso% 0.70 % 0.00-2.50 Eos 0.4 K/uL 0.0-0.7 Eos% 8.1 % 0.0-7.0 Hct 29.0 % 36.0-46.0 Hgb 9.1 g/dL 13.0-15.0 Lym 0.97 K/uL 0.60-3.40 Lym% 21.3 % 10.0-50.0 MCH 30.2 pg 27.0-31.0 MCHC 31.4 g/dL 32.0-36.0 MCV 96.3 fL 80.0-97.0 Dawson% 12.3 % 0.0-12.0 MPV 11.9 fL 7.4-10.0 Ryan% 57.6 % 37.0-80.0 Plt 129 K/uL 150-400 RBC 3.01 M/uL 3.60-5.00 RDW 16.5 % 11.6-14.8 WBC 4.55 K/uL 5.00-10.00 Ryan 2.62 K/uL 2.00-6.90 Dawson 0.6 K/uL 0.0-0.9 Baso 0.0 K/uL 0.0-0.2 CBC with Auto Diff - 07/29/18 12:40 Baso% 0.50 % 0.00-2.50 Eos 0.3 K/uL 0.0-0.7 Eos% 7.2 % 0.0-7.0 Hct 27.5 % 36.0-46.0 Hgb 8.8 g/dL 13.0-15.0 Lym 0.93 K/uL 0.60-3.40 Lym% 24.7 % 10.0-50.0 MCH 30.7 pg 27.0-31.0 MCHC 32.0 g/dL 32.0-36.0 MCV 95.8 fL 80.0-97.0 Dawson% 11.4 % 0.0-12.0 MPV 11.6 fL 7.4-10.0 Ryan% 56.2 % 37.0-80.0 Plt 114 K/uL 150-400 RBC 2.87 M/uL 3.60-5.00 RDW 16.0 % 11.6-14.8 WBC 3.77 K/uL 5.00-10.00 Ryan 2.12 K/uL 2.00-6.90 Dawson 0.4 K/uL 0.0-0.9 Baso 0.0 K/uL 0.0-0.2 [...] mg/dL 8.5-10.1 Serum heterophile antibody titer - 05/21 /19 15:18 Serum heterophile antibody titer NEGATIVE NEGATIVE [...] - 11/02/18 16:20 Bacterial blood culture NG [facility] Influenza virus A and B antigen detectio [...] culture - 11/02/18 17:38 Bacterial urine culture [id number] NRG COLONY COUNT >100,000/ML NRG FTX;REPORTABLE SUSCEPTIBILITY [...] ncentration <= NRG Nitrofurantoin susceptibility test by ga nimum inhibitory concentration <= NRG Amoxicillin and [...] Staphylococcus aureus (MRSA) scr eening culture NEG NR RED CELLS LEUKO REDUCED AS1 - 11/03/18 0 8:00 RED CELLS LEUKO REDUCED AS1 T RANSFUSED 11/03/18 1356 NRG Blood type T Indirect antibody screen pa myron - 11/03/18 08:00 ABO+Rh group AP NRG Transfusion band number [id number] NRG Blood group antibody screen NEGATIVE NR [...] pa myron - 12/27/18 13:45 WRISTBAND NUMBER [id number] NRG ABO+Rh group AP NRG Blood group [...] culture - 12/27/18 17:10 Bacterial urine culture [id number] NRG COLONY COUNT >100,000/ML NRG FTX;REPORTABLE SUSCEPTIBILITY [...] pa myron - 04/11/19 16:40 WRISTBAND NUMBER [id number] NRG ABO+Rh group AP NRG Blood group [...] culture - 06/05/19 16:55 Bacterial urine culture [id number] NRG COLONY COUNT >100,000/ML NRG FTX;REPORTABLE (PROBABLE COAG NEGATIVE STAPH) NRG FREE TEXT ENTRY 2 (PRELIM RAPID ID TESTING AT [facility] 06/06) NRG FREE TEXT ENTRY 3 [...] pa myron - 06/27/19 14:55 WRISTBAND NUMBER [id number] NRG ABO+Rh group AP NRG Blood group [...] pa myron - 07/18/19 11:04 WRISTBAND NUMBER [id number] NRG ABO+Rh group AP NRG Blood group [...] pa myron - 07/27/19 15:48 WRISTBAND NUMBER [id number] NRG ABO+Rh group AP NRG Blood group [...] pa myron - 09/05/19 11:02 WRISTBAND NUMBER [id number] NRG ABO+Rh group AP NRG Blood group [...] pa myron - 09/12/19 10:54 WRISTBAND NUMBER [id number] NRG ABO+Rh group AP NRG Blood group antibody screen NEGATIVE NR G [id number] - 09/19/19 10:55 [id number] SPECIMEN AVAILABLE NR Whole blood basic metabolic panel - 09/13 [...] pa myron - 09/27/19 18:50 WRISTBAND NUMBER [id number] NRG ABO+Rh group AP NRG Blood group [...] pa myron - 10/14/19 10:40 WRISTBAND NUMBER [id number] NRG ABO+Rh group AP NRG Blood group [...] culture - 10/15/19 12:30 Bacterial urine culture [id number] NRG COLONY COUNT >100,000/ML NRG RAPID ID PREL RAPID ID TEST AT [facility] 10/15 9:25 NRG ID CONFIRMATION RML [...] pa myron - 10/21/19 09:50 WRISTBAND NUMBER [id number] NRG ABO+Rh group AP NRG Blood group [...] CELLS LEUKO REDUCED AS1 N OT AVAILABLE NR Blood type T Indirect antibody screen pa myron - 10/26/19 08:40 WRISTBAND NUMBER [id number] NR ABO+Rh group AP NR Blood group antibody screen NEGATIVE NR G Bacterial blood culture - 10/26/19 08:40 QUANTITY OF GROWTH Isolated [facility] Bacterial blood culture [id number] [facility] Lipid 1996 panel - 10/26/19 08:50 Serum [...] culture - 10/26/19 08:55 Bacterial urine culture [id number] NRG COLONY COUNT >100,000/ML NRG SUSCEPTIBILITY NO FURTHER TESTING NRG RAPID ID PRELIM RAPID ID BY [facility] 10-27-19, 6856 NRG ID CONFIRMATION ID CONFIRMED 10-27-19,5884. NRG Arterial blood gas measurement - 0 [...] blood basophils/100 leukocytes 1 % NR Blood hypochromia detection by light microscopy MO DERATE NRG Blood microcytes detection by light microscopy SLI GHT NR Capillary blood glucose measurement by g [...] pa myron - 11/05/19 11:30 WRISTBAND NUMBER [id number] NRG ABO+Rh group AP NRG Blood group [...] by glucometer (mas s/volume) 117 mg/dL 70-110 CULTURE, URINE - 11/09/19 14:26 CULTURE, URINE, ROUTINE SEE NOTE NRG Complete blood count (CBC) with automate d white blood cell (WBC) differential - 11/14/19 15:25 Blood leukocytes automated count (number/volume) 4.5 10*3/uL 4.3-11.0 Blood erythrocytes automated count (number/volume) 2.82 10*6/uL 4.35-5.85 Venous blood hemoglobin measurement (mass/volume) 8.2 g/dL 11.5-16.0 Blood hematocrit (volume fraction) 27 % 35-52 Automated erythrocyte mean corpuscular volume 95 [ foz_us] 80-99 Automated erythrocyte mean corpuscular h emoglobin (mass per erythrocyte) 29 pg 25-34 Automated erythrocyte mean corpuscular h emoglobin concentration measurement (mass/volume) 31 g/dL 32-36 Automated erythrocyte distribution width ratio 13. 2 % 10.0- 14.5 Automated blood platelet count (count/volume) 183 10*3/uL 130-400 Automated blood platelet mean volume measurement 9.5 [foz_us] 7.4-10.4 Automated blood neutrophils/100 leukocytes 69 % 42-75 Automated blood lymphocytes/100 leukocytes 16 % 12-44 Blood monocytes/100 leukocytes 10 % [...] 0.0 10*3/uL 0.0-0.1 Comprehensive metabolic panel - 11/14/19 15:25 Serum or plasma sodium measurement (moles/volume) 140 mmol/L 135-145 Serum or plasma potassium measurement (moles/volume) 4.8 mmol/L 3.6-5.0 Serum or plasma chloride measurement (moles/volume) 103 mmol/L 98-107 Carbon dioxide 28 mmol/L 21-32 Serum or plasma anion gap determination (moles/volume) 9 mmol/L 5-14 Serum or plasma urea nitrogen measurement (mass/volume ) 34 mg/dL 7-18 Serum or plasma creatinine measurement (mass/volume) 2.11 mg/dL 0.60-1.30 Serum or plasma urea nitrogen/creatinine mass ratio 16 NRG Serum or plasma creatinine measurement w ith calculation of estimated glomerular filtration rate 24 NRG Serum or plasma glucose measurement (mass/volume) 98 mg/dL 70-105 Serum or plasma calcium measurement (mass/volume) 9.4 mg/dL 8.5-10.1 Serum or plasma total bilirubin measurement (mass/volu me) 0.6 mg/dL 0.1-1.0 Serum or plasma alkaline phosphatase momo surement (enzymatic activity/volume) 73 U/L 40-136 Serum or plasma aspartate aminotransfera se measurement (enzymatic activity/volume) 18 U/L 5-34 Serum or plasma alanine aminotransferase measurement (enzymatic activity/volume) 9 U/L 0-55 Serum or plasma protein measurement (mass/volume) 7.2 g/dL 6.4-8.2 Serum or plasma albumin measurement (mass/volume) 3.6 g/dL 3.2-4.5 CALCIUM CORRECTED 9.7 mg/dL 8.5-10.1 Complete urinalysis with reflex to cultu re - 11/14/19 16:11 Urine color determination YELLOW NRG Urine clarity determination SL CLOUDY N RG Urine pH measurement by test strip 7.5 [...] culture YES NRG Bacterial urine culture - 11/14/19 16:11 Bacterial urine culture 3 OR MORE NRG COLONY COUNT >100,000/ML NRG SUSCEPTIBILITY GRAM POSITIVES, SUGGESTING PROBABLE NRG MRSA SCREEN COLLECTION CONTAMINATION WITH SKIN YONATHAN RA NRG RAPID ID NO SUSCEPTIBILITY PERFORMED N RG CBC with Auto Diff - 11/24/19 12:39 Baso% 0.40 % 0.00-2.50 Eos 0.4 K/uL 0.0-0.7 Eos% 9.8 % 0.0-7.0 Hct 28.6 % 36.0-46.0 Hgb 8.8 g/dL 13.0-15.0 Lym 0.96 K/uL 0.60-3.40 Lym% 21.5 % 10.0-50.0 MCH 29.3 pg 27.0-31.0 MCHC 30.8 g/dL 32.0-36.0 MCV 95.3 fL 80.0-97.0 Dawson% 13.9 % 0.0-12.0 MPV 10.7 fL 7.4-10.0 Ryan% 54.4 % 37.0-80.0 Plt 165 K/uL 150-400 RBC 3.00 M/uL 3.60-5.00 RDW 13.3 % 11.6-14.8 WBC 4.47 K/uL 5.00-10.00 Ryan 2.43 K/uL 2.00-6.90 Dawson 0.6 K/uL 0.0-0.9 Baso 0.0 K/uL 0.0-0.2 Complete blood count (CBC) with automate d white blood cell (WBC) differential - 11/30/19 13:00 Blood leukocytes automated count (number/volume) 5.4 10*3/uL 4.3-11.0 Blood erythrocytes automated count (number/volume) 3.28 10*6/uL 4.35-5.85 Venous blood hemoglobin measurement (mass/volume) 9.6 g/dL 11.5-16.0 Blood hematocrit (volume fraction) 30 % 35-52 Automated erythrocyte mean corpuscular volume 91 [ foz_us] 80-99 Automated erythrocyte mean corpuscular h emoglobin (mass per erythrocyte) 29 pg 25-34 Automated erythrocyte mean corpuscular h emoglobin concentration measurement (mass/volume) 32 g/dL 32-36 Automated erythrocyte distribution width ratio 13. 5 % 10.0- 14.5 Automated blood platelet count (count/volume) 191 10*3/uL 130-400 Automated blood platelet mean volume measurement 10.6 [foz_us] 7.4-10.4 Automated blood neutrophils/100 leukocytes 74 % 42-75 Automated blood lymphocytes/100 leukocytes 14 % 12-44 Blood monocytes/100 leukocytes 8 % [...] 0.0 10*3/uL 0.0-0.1 Comprehensive metabolic panel - 06/17/20 13:00 Serum or plasma sodium measurement (moles/volume) 140 mmol/L 135-145 Serum or plasma potassium measurement (moles/volume) 4.4 mmol/L 3.6-5.0 Serum or plasma chloride measurement (moles/volume) 104 mmol/L 98-107 Carbon dioxide 26 mmol/L 21-32 [...] NRG Serum or plasma glucose measurement (mass/volume) 236 mg/dL 70-105 Serum or plasma calcium measurement (mass/volume) 9.7 mg/dL 8.5-10.1 Serum or plasma total bilirubin measurement (mass/volu me) 0.6 mg/dL 0.1-1.0 Serum or plasma alkaline phosphatase mmoo surement (enzymatic activity/volume) 74 U/L 40-136 Serum or plasma aspartate aminotransfera se measurement (enzymatic activity/volume) 17 U/L 5-34 Serum or plasma alanine aminotransferase measurement (enzymatic activity/volume) 8 U/L 0-55 Serum or plasma protein measurement (mass/volume) 7.8 g/dL 6.4-8.2 Serum or plasma albumin measurement (mass/volume) 3.9 g/dL 3.2-4.5 CALCIUM CORRECTED 9.8 mg/dL 8.5-10.1 Complete urinalysis with reflex to cultu re - 11/30/19 13:00 Urine color determination YELLOW NRG Urine clarity [...] cou nt by microscopy (number/high power field) RARE NRG Automated urine sediment leukocyte count by microscopy (number/high power field) NONE NRG Bacteria detection in urine sediment by light microsco py NEGATIVE NRG Squamous epithelial cells detection in u rine sediment by light microscopy 2-5 NRG Crystals detection in urine sediment by light microsco py NONE NRG Casts detection in urine sediment by light microscopy NONE NRG Mucus detection in urine sediment by light microscopy NEGATIVE NRG Complete urinalysis with reflex to culture NO NRG Bacterial urine culture - 11/30/19 13:00 Bacterial urine culture [id number] NRG COLONY COUNT 10,000 CFU/ML NRG SUSCEPTIBILITY SUSCEPTIBILITY REPORTED 12-03-19 NRG MRSA SCREEN VRE/VANCOMYCIN RESISTANT ENTEROCOCCUS NRG RAPID ID CONFIRMED BY RML NRG ID CONFIRMATION RESISTANT ORGANISM/CONTACT PRECAUT IONS NRG Dirithromycin susceptibility test by dis k diffusion - 11/30/19 13:00 Vancomycin susceptibility test by minimum inhibitory c oncentration > NRG Levofloxacin susceptibility test by minimum inhibitory concentration > NRG Ampicillin susceptibility test by minimum inhibitory c oncentration > NRG Linezolid susceptibility test by minimum inhibitory co ncentration 2 NRG Daptomycin susc CODIE 2 NRG Bacterial blood culture - 11/30/19 13:08 Bacterial blood culture NG NRG PT panel in platelet poor plasma by coag ulation assay - 11/30/19 13:47 Prothrombin time (PT) in platelet poor plasma by coagu lation assay 13.4 s 12.2-14.7 INR in platelet poor plasma or blood by coagulation as say 1.0 0.8-1.4 Activated partial thromboplastin time (a PTT) in platelet poor plasma bycoagulation assay - 11/30/19 13:47 Activated partial thromboplastin time (a PTT) in platelet poor plasma bycoagulation assay 22 s 24-35 Blood lactic acid measurement (moles/vol ume) - 11/30/19 13:47 Blood lactic acid measurement (moles/volume) 2.00 mmol/L 0.50-2.00 Bacterial blood culture - 11/30/19 13:47 Bacterial blood culture NG NRG Complete blood count (CBC) with automate d white blood cell (WBC) differential - 12/05/19 21:10 Blood leukocytes automated count (number/volume) 5.8 10*3/uL 4.3-11.0 Blood erythrocytes automated count (number/volume) 2.81 10*6/uL 4.35-5.85 Venous blood hemoglobin measurement (mass/volume) 8.2 g/dL 11.5-16.0 Blood hematocrit (volume fraction) 26 % 35-52 Automated erythrocyte mean corpuscular volume 91 [ foz_us] 80-99 Automated erythrocyte mean corpuscular h emoglobin (mass per erythrocyte) 29 pg 25-34 Automated erythrocyte mean corpuscular h emoglobin concentration measurement (mass/volume) 32 g/dL 32-36 Automated erythrocyte distribution width ratio 13. 8 % 10.0- 14.5 Automated blood platelet count (count/volume) 155 10*3/uL 130-400 Automated blood platelet mean volume measurement 10.2 [foz_us] 7.4-10.4 Automated blood neutrophils/100 leukocytes 58 % 42-75 Automated blood lymphocytes/100 leukocytes 19 % 12-44 Blood monocytes/100 leukocytes 15 % 0-12 Automated blood eosinophils/100 leukocytes 8 % 0-10 Automated blood basophils/100 leukocytes 0 % 0-10 Blood neutrophils automated count (number/volume) 3.3 10*3 1.8-7.8 Blood lymphocytes automated count (number/volume) 1.1 10*3 1.0-4.0 Blood monocytes automated count (number/volume) 0. 9 10*3 0.0-1.0 Automated eosinophil count 0.5 10*3/uL 0 .0-0.3 Automated blood basophil count (count/volume) 0.0 10*3/uL 0.0-0.1 Comprehensive metabolic panel - 12/05/19 21:10 Serum or plasma sodium measurement (moles/volume) 139 mmol/L 135-145 Serum or plasma potassium measurement (moles/volume) 3.8 mmol/L 3.6-5.0 Serum or plasma chloride measurement (moles/volume) 100 mmol/L 98-107 Carbon dioxide 27 mmol/L 21-32 [...] NRG Serum or plasma glucose measurement (mass/volume) 222 mg/dL 70-105 Serum or plasma calcium measurement (mass/volume) 9.6 mg/dL 8.5-10.1 Serum or plasma total bilirubin measurement (mass/volu me) 0.5 mg/dL 0.1-1.0 Serum or plasma alkaline phosphatase momo surement (enzymatic activity/volume) 79 U/L 40-136 Serum or plasma aspartate aminotransfera se measurement (enzymatic activity/volume) 19 U/L 5-34 Serum or plasma alanine aminotransferase measurement (enzymatic activity/volume) 10 U/L 0-55 Serum or plasma protein measurement (mass/volume) 7.5 g/dL 6.4-8.2 Serum or plasma albumin measurement (mass/volume) 3.9 g/dL 3.2-4.5 CALCIUM CORRECTED 9.7 mg/dL 8.5-10.1 Magnesium - 12/05/19 21:10 Magnesium 2.1 mg/dL 1.6-2.4 PT panel in platelet poor plasma by coag ulation assay - 12/05/19 21:10 Prothrombin time (PT) in platelet poor plasma by coagu lation assay 13.7 s 12.2-14.7 INR in platelet poor plasma or blood by coagulation as say 1.0 0.8-1.4 Activated partial thromboplastin time (a PTT) in platelet poor plasma bycoagulation assay - 12/05/19 21:10 Activated partial thromboplastin time (a PTT) in platelet poor plasma bycoagulation assay 29 s 24-35 Blood lactic acid measurement (moles/vol ume) - 12/05/19 21:10 Blood lactic acid measurement (moles/volume) 1.43 mmol/L 0.50-2.00 Ammonia - 12/05/19 21:10 Ammonia 103 umol/L 11-32 Serum or plasma thyrotropin measurement by detection limit <=0.05 miu/l (units/volume) - 12/05/19 21:10 Serum or plasma thyrotropin measurement by detection limit <=0.05 miu/l (units/volume) 2.67 u[iU]/mL 0.35-4.94 Serum or plasma acetaminophen measuremen t (mass/volume) - 12/05/19 21:10 Serum or plasma acetaminophen measurement (mass/volume ) < ug/mL 10-30 Serum or plasma ethanol measurement (mas s/volume) - 12/05/19 21:10 Serum or plasma ethanol measurement (mass/volume) < mg/dL <10 Bacterial blood culture - 12/05/19 21:41 Bacterial blood culture NG NRG Complete urinalysis with reflex to cultu re - 12/05/19 22:05 Urine color determination YELLOW NRG Urine clarity determination CLEAR NR G Urine pH measurement by test strip 6.5 5-9 Specific gravity of urine by test [...] in urine sediment by light codie roscopy RARE NRG Urine drug screening test - 12/05/19 22: 05 Urine phencyclidine detection by screening method NEGATIVE [...] TIVE Urine propoxyphene detection NEGATIVE N EGATIVE Bacterial blood culture - 12/05/19 22:05 Bacterial blood culture NG NRG CBC with Auto Diff - 12/15/19 11:30 Baso% 0.70 % 0.00-2.50 Eos 0.4 K/uL 0.0-0.7 Eos% 9.8 % 0.0-7.0 Hct 27.8 % 36.0-46.0 Hgb 8.9 g/dL 13.0-15.0 Lym 0.70 K/uL 0.60-3.40 Lym% 16.4 % 10.0-50.0 MCH 30.5 pg 27.0-31.0 MCHC 32.0 g/dL 32.0-36.0 MCV 95.2 fL 80.0-97.0 Dawson% 9.6 % 0.0-12.0 MPV 11.2 fL 7.4-10.0 Ryan% 63.5 % 37.0-80.0 Plt 117 K/uL 150-400 RBC 2.92 M/uL 3.60-5.00 RDW 15.2 % 11.6-14.8 WBC 4.27 K/uL 5.00-10.00 Ryan 2.71 K/uL 2.00-6.90 Dawson 0.4 K/uL 0.0-0.9 Baso 0.0 K/uL 0.0-0.2 Complete blood count (CBC) with automate d white blood cell (WBC) differential - 12/21/19 21:00 Blood leukocytes automated count (number/volume) 5.8 10*3/uL 4.3-11.0 Blood erythrocytes automated count (number/volume) 2.96 10*6/uL 4.35-5.85 Venous blood hemoglobin measurement (mass/volume) 9.1 g/dL 11.5-16.0 Blood hematocrit (volume fraction) 28 % 35-52 Automated erythrocyte mean corpuscular volume 94 [ foz_us] 80-99 Automated erythrocyte mean corpuscular h emoglobin (mass per erythrocyte) 31 pg 25-34 Automated erythrocyte mean corpuscular h emoglobin concentration measurement (mass/volume) 33 g/dL 32-36 Automated erythrocyte distribution width ratio 16. 8 % 10.0- 14.5 Automated blood platelet count (count/volume) 164 10*3/uL 130-400 Automated blood platelet mean volume measurement 10.4 [foz_us] 7.4-10.4 Automated blood neutrophils/100 leukocytes 58 % 42-75 Automated blood lymphocytes/100 leukocytes 21 % 12-44 Blood monocytes/100 leukocytes 12 % [...] poor plasma by coag ulation assay - 12/21/19 21:00 Prothrombin time (PT) in platelet poor plasma by coagu lation assay 13.8 s 12.2-14.7 INR in platelet poor plasma or blood by coagulation as say 1.0 0.8-1.4 Activated partial thromboplastin time (a PTT) in platelet poor plasma bycoagulation assay - 12/21/19 21:00 Activated partial thromboplastin time (a PTT) in platelet poor plasma bycoagulation assay 30 s 24-35 Blood lactic acid measurement (moles/vol ume) - 12/21/19 21:00 Blood lactic acid measurement (moles/volume) 1.26 mmol/L 0.50-2.00 Comprehensive metabolic panel - 12/21/19 21:00 Serum or plasma sodium measurement (moles/volume) 138 mmol/L 135-145 Serum or plasma potassium measurement (moles/volume) 4.2 mmol/L 3.6-5.0 Serum or plasma chloride measurement (moles/volume) 105 mmol/L 98-107 Carbon dioxide 23 mmol/L 21-32 Serum or plasma anion gap determination (moles/volume) 10 mmol/L 5-14 Serum or plasma urea nitrogen measurement (mass/volume ) 28 mg/dL 7-18 Serum or plasma creatinine measurement (mass/volume) 2.40 mg/dL 0.60-1.30 Serum or plasma urea nitrogen/creatinine mass ratio 12 NRG Serum or plasma creatinine measurement w ith calculation of estimated glomerular filtration rate 20 NRG Serum or plasma glucose measurement (mass/volume) 177 mg/dL 70-105 Serum or plasma calcium measurement (mass/volume) 9.1 mg/dL 8.5-10.1 Serum or plasma total bilirubin measurement (mass/volu me) 0.6 mg/dL 0.1-1.0 Serum or plasma alkaline phosphatase momo surement (enzymatic activity/volume) 70 U/L 40-136 Serum or plasma aspartate aminotransfera se measurement (enzymatic activity/volume) 21 U/L 5-34 Serum or plasma alanine aminotransferase measurement (enzymatic activity/volume) 14 U/L 0-55 Serum or plasma protein measurement (mass/volume) 7.1 g/dL 6.4-8.2 Serum or plasma albumin measurement (mass/volume) 3.7 g/dL 3.2-4.5 CALCIUM CORRECTED 9.3 mg/dL 8.5-10.1 PROCALCITONIN (PCT) - 12/21/19 21:00 PROCALCITONIN (PCT) 0.08 ng/mL <0.10 Erythrocyte sedimentation rate by aram gren method - 12/21/19 21:00 Erythrocyte sedimentation rate by westergren method 43 mm 0- 30 Ammonia - 12/21/19 21:00 Ammonia 104 umol/L 11-32 Serum or plasma C reactive protein measu rement (mass/volume) - 12/21/19 21:00 Serum or plasma C reactive protein measurement (mass/v olume) 0.07 mg/dL 0.00-0.50 Bacterial blood culture - 12/21/19 21:00 Bacterial blood culture NG NRG Arterial blood gas measurement - 0 21:30 Blood pCO2 39 mm[Hg] 35-45 Blood pO2 71 mm[Hg] 79-93 Arterial blood bicarbonate measurement (moles/volume) 26 mmol/L 23-27 Arterial blood base excess by calculation 1.9 mmol /L -2.5-2.5 Arterial blood oxygen saturation measurement 95 % 94-100 * Inhaled oxygen flow rate ROOM AIR NRG Arterial blood pH measurement with patient temperature correction 7.43 7.37-7.43 Arterial blood carbon dioxide, total measurement (mole s/volume) 27.0 mmol/L 21.0-31.0 Body site RT RADIAL NRG Assessment of wrist artery patency prior to arterial p uncture YES-POS NRG Setting of ventilation mode NO NR G Measurement of body temperature 98.3 NRG Complete urinalysis with reflex to cultu re - 12/21/19 21:40 Urine color determination YELLOW NRG Urine clarity determination CLEAR NR G Urine pH measurement by test strip 6.0 5-9 Specific gravity of urine by test strip 1.020 1.016-1.022 Urine protein assay by test strip, semi-quantitative NEGATIVE NEGATIVE Urine glucose detection by automated test strip TR EMMA NEGATIVE Erythrocytes detection in urine sediment by [...] with reflex to culture NO NRG Bacterial blood culture - 12/21/19 22:00 Bacterial blood culture NG NRG Coronavirus SARS-CoV-2 SO 2018 - 0 15:13 Coronavirus Ab [Units/volume] in Serum Negative Negative Encounters ACCT No. Visit Date/Time Discharge Status Pt. Type Provider Facility Loc./Unit Complaint [id number] 12/15/2019 11:49:00 12/15/2019 23:59 :00 DIS Outpatient ANYSHIREEN [id number] 11/24/2019 12:31:00 11/24/2019 23:59 :00 DIS Outpatient SHIREEN AGARWAL [id number] 07/29/2018 13:21:00 07/29/2018 23:59: 00 DIS Outpatient SHIREEN AGARWAL [id number] 07/08/2018 00:00:00 07/29/2018 10:51: 00 DIS Outpatient SHIREEN AGARWAL [id number] 07/26/2018 14:38:00 07/26/2018 23:59: 00 DIS Outpatient SHIREEN AGARWAL [id number] 07/19/2018 14:20:00 07/19/2018 23:59: 00 DIS Outpatient SHIREEN AGARWAL [id number] 07/15/2018 14:52:00 07/15/2018 23:59: 00 DIS Outpatient SHIREEN AGARWAL [id number] 07/08/2018 17:59:00 07/08/2018 23:59: 00 DIS Outpatient SHIREEN AGARWAL [id number] 03/31/2016 15:06:00 03/31/2016 23:59: 00 DIS Outpatient SELF, PHY [id number] 01/06/2020 09:08:00 23:59:59 CLS Outpatient SHIREEN AGARWAL N [facility] ONC [id number] 12/21/2019 20:36:00 23:39:00 DIS Outpatient KENNEY KHOURY, HUSSAIN Norris [facility] ER NAUSEA, LOOPY [id number] 12/05/2019 20:46:00 23:45:00 DIS Emergency CARLIN DO JOSR K [facility] ER CONFUSION [id number] 11/30/2019 12:51:00 15:41:00 DIS Emergency MALLORIE FATIMA APRN [facility] ER GENERAL PAIN [id number] 09/26/2019 13:05:00 00:01:00 DIS Outpatient KRUNAL KHOURY PHD, LULA Clement [facility] LAB [id number] 11/17/2019 10:54:00 23:59:59 CLS Outpatient HARVEY KHOURY, NIA [facility] LAB [id number] 11/14/2019 14:18:00 17:09:00 DIS Outpatient MALLORIE FATIMA APRN [facility] ER DIZZINESS [id number] 11/03/2019 17:08:00 11:00:00 DIS Inpatient GARCIA DO, MICHELLE V [facility] 4TH UTI:LLL PNA [id number] 10/26/2019 10:18:00 14:56:00 DIS Inpatient JAMES TORRES MD [facility] 4TH AMS,HYPERGLYCEMIA,DEHYDRATION,ANEMIA [id number] 10/28/2019 12:25:00 23:59:59 CLS Preadmit JAMES TORRES MD, V [facility] LAB [id number] 10/14/2019 10:19:00 00:01:00 DIS Outpatient SHIREEN AGARWAL V [facility] ONC [id number] 10/15/2019 13:20:00 21:40:00 DIS Inpatient GARCIA DO, MICHELLE V [facility] 4TH GENERAL WEAKNESS,FAILUR E TO THRIVE [id number] 09/27/2019 18:10:00 23:11:00 DIS Emergency KATERYNA KHOURY, MAUREEN Rashid [facility] ER SOB, HX CHF [id number] 09/12/2019 09:32:00 23:59:59 CLS Outpatient NIA GABRIEL MD [facility] LAB [id number] 07/18/2019 10:26:00 00:01:00 DIS Outpatient KRUNAL KHOURY PHD, LULA Clement [facility] LAB [id number] 07/25/2019 19:00:00 13:33:00 DIS Inpatient GARCIA DO, MICHELLE V [facility] 4TH CHEST PAIN,CONFUSION,EL EV AMMONIA,SEVERE SEPSIS,PN [id number] 07/18/2019 09:29:00 23:59:59 CLS Outpatient JAMES TORRES MD [facility] RAD SCREENING [id number] 07/11/2019 07:44:00 00:01:00 DIS Outpatient SHIREEN AGARWAL V [facility] ONC [id number] 06/05/2019 18:45:00 14:45:00 DIS Inpatient TOMASA CARMONA MD [facility] CSD PNA, UTI, SEPSIS [id number] 05/30/2019 14:04:00 23:59:59 CLS Outpatient RACHELE JEFFERSON [employer] ASSISTANT 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 LAB [id number] 05/07/2019 16:12:00 19:07:00 DIS Emergency MALLORIE FATIMA HAND TOOL LAPPER [facility] ER CONFUSION, FREQUENT URI NATION [id number] 04/18/2019 14:38:00 00:01:00 DIS Outpatient KRUNAL KHOURY PHD, LULA Clement [facility] LAB [id number] 04/10/2019 16:30:00 11:40:00 DIS Inpatient BRIAN KHOURY, JAMES Champion [facility] 4TH N,V,DEHYDRATION,AFIB [id number] 04/04/2019 14:01:00 00:01:00 DIS Outpatient SHIREEN AGARWAL V [facility] ONC [id number] 01/10/2019 13:24:00 00:01:00 DIS Outpatient KRUNAL KHOURY PHD, LULA Clement [facility] LAB [id number] 01/05/2019 12:58:00 00:01:00 DIS Outpatient SHIREEN AGARWAL V [facility] ONC [id number] 12/27/2018 17:05:00 10:50:00 DIS Inpatient MICHELLE GARCIA DO, V [facility] ICU ANEMIA,HHNK [id number] 11/02/2018 20:55:00 13:05:00 DIS Inpatient GARCIAFAVIO WOOD MICHELLE V [facility] 4TH SEPSIS,UTI,MIDLY EVEVAT ED TROPONIN,CHEST PAIN [id number] 10/11/2018 14:32:00 23:59:59 CLS Outpatient KRUNAL KHOURY PHD, LULA Clement [facility] LAB [id number] 10/05/2018 12:42:00 15:58:00 DIS Outpatient SHIREEN AGARWAL V [facility] ONC [id number] 09/27/2018 18:30:00 21:00:00 DIS Emergency KATERYNA KHOURY, MAUREEN Rashid [facility] ER SOA / SWELLING [id number] 09/22/2018 13:27:00 23:59:59 CLS Outpatient KRUNAL KHOURY PHD, LULA Clement [facility] LAB [id number] 09/17/2018 10:01:00 23:59:59 CLS Outpatient KRUNAL KHOURY PHD, LULA Clement [facility] LAB [id number] 08/30/2018 13:34:00 23:59:59 CLS Outpatient KRNUAL KHOURY PHD, LULA Clement [facility] LAB [id number] 08/17/2018 13:16:00 23:59:59 CLS Outpatient JAMES TORRES MD [facility] LAB [id number] 07/05/2018 19:14:00 23:59:59 CLS Outpatient JAMES TORRES MD [facility] LABNPT ANEMIA,CKD,DM,CIRRHOSIS [id number] 07/05/2018 08:00:00 23:59:59 CLS Outpatient SHIREEN AGARWAL [facility] HH ANEMIA DM CKD CIRRHOSIS [id number] 06/18/2018 13:15:00 09:45:00 DIS Inpatient EMILIANO GARCIA DOI Ari [facility] IRF CRITICAL ILLNESS MYOPAT HY [id number] 05/20/2018 12:48:00 018 00:01:00 DIS Outpatient MELIZA KHOURY, BRANDEN Chapman [facility] ONC [id number] 05/30/2018 04:03:00 018 16:50:00 DIS Inpatient JAMES TORRES MD [facility] ICU FALL [id number] 05/28/2018 13:48:00 17:15:00 DIS Emergency TACOS KHOURY, MODESTO Barrett [facility] ER SOB [id number] 05/24/2018 13:02:00 018 15:25:00 DIS Inpatient KRISTINE KHOURY, TOMASA Narvaez [facility] 4TH ANEMIA,FEVER,NAUSEA,VOM ITING [id number] 05/05/2018 09:11:00 16:55:00 DIS Outpatient RACHELE JEFFERSONP [facility] SDC POOR VENOUS ACC ESS I87.8 [id number] 04/29/2018 11:33:00 018 23:59:59 CLS Outpatient KELLY KHOURY, TUBA [facility] LAB [id number] 03/20/2018 12:20:00 018 23:59:59 CLS Outpatient MACIEL WELCH APRN [facility] RAD PAIN IN LEFT LE G [id number] 03/09/2018 13:19:00 018 00:01:00 DIS Outpatient BRANDEN HAIDER MD, V [facility] ONC [id number] 02/10/2018 13:30:00 018 14:53:00 DIS Outpatient SHIREEN AGARWAL V [facility] ONC [id number] 02/12/2018 11:00:00 018 23:59:59 CLS Preadmit SABRINA ROSSI DO [facility] SDC POOR VENOUS ACCESS [id number] 02/11/2018 00:30:00 018 16:54:00 DIS Inpatient JAMES TORRES MD [facility] ICU CHEST PAIN,UNSTABLE ANG MAYANK;SEVERE ANEMIA;CHF [id number] 02/11/2018 06:53:00 018 23:59:59 CLS Outpatient SABRINA ROSSI DO [facility] PREOP POOR VENOUS ACCESS [id number] 01/12/2018 13:40:00 23:59:59 CLS Outpatient SHIREEN AGARWAL V [facility] ONC [id number] 11/17/2017 14:55:00 018 23:59:59 CLS Outpatient KELLY KHOURY, TUBA [facility] LAB [id number] 11/06/2017 15:30:00 018 03:52:00 DIS Inpatient KRISTINE KHOURY, TOMASA Narvaez [facility] 4TH ANEMIA/TRANSFUSION [id number] 11/06/2017 12:00:00 018 23:59:59 CLS Outpatient Wei ALCARAZ MD [facility] LAB [id number] 10/20/2017 11:12:00 018 00:01:00 DIS Outpatient SHIREEN AGARWAL V [facility] ONC [id number] 10/03/2017 23:50:00 018 13:33:00 DIS Inpatient TOMASA CARMONA MD [facility] 4TH ANEMIA,CHEST PAIN, A FI B, HYPERGLYCEMIA, [id number] 09/12/2017 22:15:00 018 14:45:00 DIS Inpatient JAMES TORRES MD [facility] ICU CHEST PAIN [id number] 07/17/2017 14:09:00 018 10:19:00 DIS Outpatient BRANDEN HAIDER MD, V [facility] ONC [id number] 07/17/2017 09:59:00 018 13:30:00 DIS Outpatient CARMINE BORRERO DO [facility] ENDO GI BLEED [id number] 07/16/2017 15:00:00 02/01/2 018 15:00:00 CAN Preadmit GISSELL CARMINE WOOD V [facility] PREOP GI BLEED [id number] 07/01/2017 12:12:00 018 09:04:00 DIS Outpatient SHIREEN AGARWAL [facility] ONC [id number] 06/16/2017 10:05:00 00:01:00 DIS Outpatient SHIREEN AGARWAL V [facility] ONC [id number] 06/14/2017 14:39:00 017 23:59:59 CLS Outpatient RACHELE JEFFERSON [facility] LAB ANEMIA,SHORTNES S OF BREATH [id number] 05/21/2017 12:23:00 017 23:59:59 CLS Outpatient SABRINA ROSSI DO [facility] RAD ABD PAIN, ANEMIA [id number] 05/12/2017 09:09:00 017 23:59:59 CLS Outpatient JAMES TORRES MD [facility] LAB [id number] 04/07/2017 06:54:00 017 23:59:59 CLS Outpatient SABRINA ROSSI DO [facility] ENDO INFLAMMATION [id number] 04/06/2017 11:00:00 017 11:22:00 DIS Outpatient SABRINA ROSSI DO [facility] PREOP CAPSULE ENDO [id number] 03/04/2017 10:21:00 017 00:01:00 DIS Outpatient SHIREEN AGARWAL V [facility] ONC [id number] 03/02/2017 07:20:00 017 23:59:59 CLS Outpatient SABRINA ROSSI DO [facility] ENDO ANEMIA [id number] 02/23/2017 05:40:00 017 11:52:00 DIS Outpatient SABRINA ROSSI DO [facility] PREOP ANEMIA [id number] 01/29/2017 09:44:00 017 15:52:00 DIS Inpatient JAMES TORRES MD [facility] ICU A-FIB WITH RVR [id number] 01/02/2017 06:29:00 017 08:45:00 DIS Outpatient SABRINA ROSSI DO [facility] ENDO ANEMIA; OCCULT POSITIVE STOOLS [id number] 12/31/2016 11:10:00 017 10:01:00 DIS Outpatient MACIEL WELCH APRN [facility] LAB ANEMIA [id number] 12/31/2016 12:53:00 017 23:59:59 CLS Outpatient SABRINA ROSSI DO [facility] PREOP ANEMIA, OCCULT POSITIVE STOOL [id number] 12/17/2016 09:30:00 017 23:59:59 CLS Preadmit Wei ALCARAZ MD [facility] CARD AFIB,PSVT [id number] 10/10/2016 08:46:00 017 00:01:00 DIS Outpatient Wei ALCARAZ MD [facility] CARD AFIB,PSVT [id number] 10/24/2016 08:37:00 017 00:01:00 DIS Outpatient SHIREEN AGARWAL V [facility] ONC [id number] 10/24/2016 08:41:00 017 23:59:59 CLS Outpatient BERNY ALCARAZ MD [facility] LAB [id number] 09/15/2016 12:15:00 017 23:59:59 CLS Outpatient BERNY ALCARAZ MD [facility] LAB [id number] 11/27/2015 15:28:00 016 00:01:00 DIS Outpatient SHIREEN AGARWAL [facility] ONC [id number] 10/04/2015 13:17:00 016 23:59:59 CLS Outpatient SHIREEN AGARWAL V [facility] ONC [id number] 06/12/2015 11:11:00 00:01:00 DIS Outpatient SHIREEN AGARWAL V [facility] ONC [id number] 06/04/2015 15:34:00 23:59:59 CLS Preadmit RACHELE JEFFERSON [employer] ASSIST[employer] [facility] ONC [id number] 03/29/2015 11:35:00 23:59:59 CLS Outpatient WU DIOR MD [facility] LAB [id number] 03/15/2015 14:54:00 23:59:59 CLS Outpatient WU DIOR MD [facility] LAB [id number] 11/23/2014 13:42:00 00:01:00 DIS Outpatient SHIREEN AGARWAL V [facility] ONC [id number] 10/05/2014 13:42:00 23:59:59 CLS Outpatient CLAUDE GABRIEL MD [facility] LAB [id number] 10/05/2014 12:00:00 23:59:59 CLS Outpatient CLAUDE GABRIEL MD [facility] RAD POST SPOT URINE [id number] 07/17/2014 14:31:00 23:59:59 CLS Outpatient SHIREEN AGARWAL V [facility] ONC [id number] 05/24/2014 13:33:00 23:59:59 CLS Outpatient LINDA KHOURY FACC, ARNIE SHAW CC DS [facility] LAB [id number] 04/03/2014 14:00:00 014 00:01:00 DIS Outpatient SHIREEN AGARWAL V [facility] ONC [id number] 03/24/2014 06:46:00 014 09:55:00 DIS Outpatient TY KHOURY, TONIE Diaz Via [facility] SCREENING; ANEMIA [id number] 03/23/2014 07:22:00 014 23:59:59 CLS Outpatient TY KHOURY, TONIE Diaz [facility] PREOP SCREENING; ANEMIA [id number] 03/02/2014 09:01:00 014 16:00:00 DIS Outpatient LINDA KHOURY FACC, ALI FACP CC DS [facility] CATH CP,CAD,HTN [id number] 02/07/2014 07:52:00 014 23:59:59 CLS Outpatient LINDA KHOURY FACC, ALI FACP CC DS [facility] CARD AFIB [id number] 03/31/2013 08:55:00 013 23:59:59 CLS Outpatient CHICHI RIVAS [facility] RAD MID EPIGASTRIC PAIN [id number] 11/28/2019 00:00:00 Document Registration [id number] 10/05/2014 11:59:00 Document Registration [id number] 10/05/2014 11:59:00 Document Registration [id number] 10/05/2014 11:59:00 Document Registration [id number] 08/24/2014 14:23:00 Document Registration [id number] 08/21/2014 07:51:00 Document Registration [id number] 04/03/2012 14:05:00 Document Registration [id number] 12/28/2019 13:20:00 12/28/2019 23:59: 59 CLS Outpatient JAMES TORRES [facility] [id number] 11/09/2019 13:20:00 Document Registration [id number] 06/20/2019 13:20:00 Document Registration [id number] 01/03/2019 15:20:00 Document Registration [id number] 03/01/2018 12:00:00 Document Registration [id number] 05/18/2017 16:00:00 Document Registration
== END 2020-01-10 18:00 | disposition home or self-care (01) ==
LOC: EDUNIT# 16:08 → ER 16:10
DX: J18.9 Pneumonia, unspecified organism (principal); J81.0 Acute pulmonary edema; D64.9 Anemia, unspecified; E03.9 Hypothyroidism, unspecified; E11.9 Type 2 diabetes mellitus without complications; Z79.4 Long term (current) use of insulin; I10 Essential (primary) hypertension; I25.2 Old myocardial infarction; K21.9 Gastro-esophageal reflux disease without esophagitis; N19 Unspecified kidney failure; E66.9 Obesity, unspecified; I50.9 Heart failure, unspecified; Z68.37 Body mass index [BMI] 37.0-37.9, adult; Z79.890 Hormone replacement therapy; Z88.8 Allergy status to other drugs, medicaments and biological substances; Z88.2 Allergy status to sulfonamides; Z87.891 Personal history of nicotine dependence; Z80.1 Family history of malignant neoplasm of trachea, bronchus and lung; Z82.49 Family history of ischemic heart disease and other diseases of the circulatory system; Z95.5 Presence of coronary angioplasty implant and graft; Z95.1 Presence of aortocoronary bypass graft
CPT/HCPCS: 36415; 71045; 80053; 81000; 83735; 83880; 84443; 84484; 85025; 87088; 93041

== ENCOUNTER → 2020-02-03 | Outpatient (CLI) | payer MEDICARE ==
[~2020-02-03] MED LIST changes: +DOXY100T2 PO
== END ==
LOC: LAB 11:38
PROVIDERS: ATTEND Family Medicine
DX: K72.90 Hepatic failure, unspecified without coma (principal)
CPT/HCPCS: 36415; 82140

== ENCOUNTER → 2020-02-13 | Outpatient (CLI) | payer MEDICARE | LOC: CARD 13:29 | PROVIDERS: ATTEND Internal Medicine Advanced Heart Failure and Transplant Cardiology | DX: I51.7 Cardiomegaly (principal); I48.0 Paroxysmal atrial fibrillation; I50.32 Chronic diastolic (congestive) heart failure; Z20.828 Contact with and (suspected) exposure to other viral communicable diseases | CPT/HCPCS: 93306 ==

== ENCOUNTER → 2020-03-08 | Outpatient (CLI) | payer MEDICARE ==
[~2020-03-08] VITALS: Ht 162 cm; Wt 98.0 kg
[~2020-03-08] MED LIST changes: +ASPI-1238 PO; -ASPI-983 PO; -CETI10TA21 PO; +CETI10TA49 PO; -PANT40TA3 PO; +PANT40TA52 PO; +REGADENOSON 0.4 MG/5 ML SYR (LEXISCAN) IV ONE
[2020-03-08] MEDS: CATHETER FLUSH 10 ML SYR IV PRN ×2 (08:47→08:48)
[2020-03-08 09:50] VITALS: BP 166/64
--- NOTE | 2020-03-09 16:26 | Cardiology Stress Test Report ---
Stress Test Report Type of NM Stress Test: Test Type: LEXISCAN 0.4MG/5ML Date of Procedure/Referring: Date of Procedure: Mar 08, 2020 PCP Felisa Sneed MD,PhD Admitting Physician Carla Wilson MD Indications: Chest pain Baseline Heart Rate: 78 Baseline Blood Pressure: Blood Pressure Systolic: 166 Blood Pressure Diastolic: 64 Baseline EKG: Baseline EKG: sinus rhythm Summary & Conclusion: Summary: The patient was brought to the stress lab after informed consent was taken. Stress test was performed according to the Lexiscan protocol. 0.4 mg of IV Lexiscan was given. Low-grade exercise was performed. Baseline EKG showed sinus rhythm at 78 bpm and blood pressure 166/64 mmHg. Maximum heart rate of 83 bpm and blood pressure 128/55 mmHg. Patient did not have any chest pain, arrhythmias or ST segment changes during the stress test. 10.91 mCi of Myoview were given for rest imaging and 30.1 mCi of Myoview given for stress imaging. Transient ischemic dilatation score 0.99, EF 70 percent. Normal wall motion. Normal myocardial perfusion imaging during rest and stress. Conclusion: Pharmacological stress test was negative for ischemia. Normal LV function with no wall motion abnormalities. Normal myocardial perfusion imaging during rest and stress. Wei ALCARAZ MD Mar 09, 2020 16:26
== END ==
LOC: CARD 08:45
PROVIDERS: ATTEND Internal Medicine Advanced Heart Failure and Transplant Cardiology
DX: I25.10 Atherosclerotic heart disease of native coronary artery without angina pectoris (principal); Z20.828 Contact with and (suspected) exposure to other viral communicable diseases
CPT/HCPCS: 78452; 93017; A9502

== ENCOUNTER 2020-03-13 16:11 | Emergency (ER) | payer MEDICARE ==
[~2020-03-13] VITALS: Ht 162.5 cm; Wt 98.4 kg
[~2020-03-13 16:11] MED LIST changes: -REGADENOSON 0.4 MG/5 ML SYR (LEXISCAN) IV ONE
[2020-03-13] MEDS ORDERED: PROMETHAZINE INJ 25 MG/ML (PHENERGAN) AMP IVP STA (16:47)
[2020-03-13] MEDS ORDERED: FAMOTIDINE 20MG/2ML IV (PEPCID) IV STA (16:47)
--- NOTE | 2020-03-13 16:47 | ED GI ---
General Chief Complaint: Abdominal/GI Problems Stated Complaint: SOB/COUGH History of Present Illness Date Seen by Provider: Mar 13, 2020 Time Seen by Provider: 16:44 Initial Comments 64-year-old male presents with nausea with vomiting 1. Patient has chronic nausea with vomiting. She reports that her nausea she took for Zofran today. She presents because she "couldn't get under control today" she has no acute complaints today. She initially complained of some mild shortness of breath and cough are this is also chronic and she is normally on 2 L of oxygen. She has no reports of loss of taste or since of smell. She has no fever. Allergies and Home Medications Allergies Coded Allergies: Yngtnoh-Fwi-Uvh Reductase Inhibitor (Verified Allergy, Intermediate, GI UPSET, N/V, 11/06/17) cefadroxil (Unverified Allergy, Mild, 01/01/17) Sulfa (Sulfonamide Antibiotics) (Verified Allergy, Unknown, 06/18/18) oxycodone (Unverified Allergy, Unknown, 12/21/19) "makes skin crawl" Home Medications Acetaminophen 500 Mg Tablet, 500 MG PO Q4H PRN for PAIN-MILD (1-4), (Reported) Bumetanide 1 Mg Tablet, 1 MG PO DAILY, (Reported) Bumetanide 1 Mg Tablet, 1 MG PO DAILY PRN for SWELLING, (Reported) MAY TAKE AN ADDITIONAL DOSE IF NEEDED Cetirizine HCl 10 Mg Tablet, 10 MG PO DAILY, (Reported) Doxycycline Hyclate 100 Mg Tablet, 100 MG PO BID Prescribed by: BORIS JOLLEY on 01/10/20 174 Glucosa Horne 2Kcl/Chondroitin Horne 1 Each Capsule, 1 CAP PO BID, (Reported) Insulin Aspart 300 Units/3 Ml Solution, 8 UNITS SQ AC, (Reported) Insulin NPH Human Isophane 100 Unit/1 Ml Vial, SQ AC, (Reported) LAST FILLED 09-05-2019 #10 VIALS SLIDING SCALE A Levofloxacin 500 Mg Tablet, 500 MG PO DAILY Prescribed by: MALLORIE FATIMA on 11/14/19 1634 Levothyroxine Sodium 125 Mcg Tablet, 125 MCG PO DAILY, (Reported) LAST FILLED 09-06-2019 #30 Magnesium Oxide 400 Mg Tablet, 400 MG PO BID, (Reported) Metoclopramide HCl 10 Mg Tablet, 10 MG PO BIDAC PRN for STOMACH UPSET, (Reported) Metolazone 5 Mg Tablet, 5 MG PO SUN,CARLENE PRN for WEIGHT>195, (Reported) Nitrofurantoin Monohyd/M-Cryst 100 Mg Capsule, 1 TAB PO BID WITH MEALS Prescribed by: TONIE CRAWFORD on 11/06/19 1014 Nitroglycerin 0.4 Mg Tab.subl, 0.4 MG SL UD PRN for CHEST PAIN, (Reported) Omeprazole 40 Mg Capsule.dr, 40 MG PO BID, (Reported) Promethazine HCl 25 Mg Tablet, 12.5 MG PO Q12H PRN for NAUSEA/VOMITING-2ND LINE, (Reported) Tizanidine HCl 2 Mg Tablet, 2 MG PO TID PRN for MUSCLE SPASMS, (Reported) Tramadol HCl 50 Mg Tablet, 50 MG PO TID PRN for PAIN-MODERATE, (Reported) [Folic Acid] , 1 MG PO DAILY, (Reported) LAST FILLED 09-11-2019 #30 Patient Home Medication List Home Medication List Reviewed: Yes Review of Systems Review of Systems Constitutional: No dizziness, No fever EENTM: No Symptoms Reported Respiratory: Cough (chronic), Shortness of Air (chronic) Cardiovascular: Denies Chest Pain, Denies Irregular Heart Rate, Denies Lightheadedness Gastrointestinal: Abdominal Pain (mild diffuse), Nausea, Vomiting Musculoskeletal: no symptoms reported Skin: no symptoms reported Psychiatric/Neurological: No Symptoms Reported Endocrine: No Symptoms Reported Past Dbdiqye-Hjbzwy-Vjzrge Hx Past Med/Social Hx: Reviewed Nursing Past Med/Soc Hx Patient Social History Alcohol Use: Denies Use Recreational Drug Use: No Smoking Status: Former Smoker Type Used: Cigarettes Former Smoker, Quit: May 20, 1980 2nd Hand Smoke Exposure: No Recent Foreign Travel: No Contact w/Someone Who Travel: No Recent Hopitalizations: No Immunizations Up To Date Tetanus Booster (TDap): Unknown PED Vaccines UTD: Yes Date of Pneumonia Vaccine: May 16, 2019 Date of Influenza Vaccine: Apr 15, 2019 Seasonal Allergies Seasonal Allergies: Yes Past Medical History Surgeries: Yes Adenoidectomy, Cardiac, CABG, Coronary Stent, Open Heart Surgery, Orthopedic, Tonsillectomy, Tubal Ligation Respiratory: Yes (LEFT PLEURAL EFFUSION-S/P THORACENTESIS) Pneumonia, Sleep Apnea Currently Using CPAP: No Currently Using BIPAP: No Cardiac: Yes (CHF, STENT X1; CABG 02/16/2018 x 4 @ [facility];NSTEMI X 3) Atrial Fibrillation, Chronic Edema/Swelling, Coronary Artery Disease, Heart Attack, High Cholesterol, Hypertension Neurological: Yes (CHRONIC BASELINE CONFUSION) Dementia Reproductive Disorders: No Female 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 LIVER DZ/ELEV AMMONIA) Gastroesophageal Reflux, Liver Disease/Jaundice, Gastrointestinal Bleed, Diverticulosis, Hemorrhoids, Polyps Musculoskeletal: Yes (POOR AMBULATION--USES WALKER SINCE CABG; L ANKLE AND KNEE SURGERIES) Degenerate Disk Disease, Arthritis, Chronic Back Pain, Fractures Endocrine: Yes (OBESITY) Diabetes, Insulin dep, Hypothyroidsim HEENT: No Loss of Vision: Denies Hearing Impairment: Denies Cancer: No Psychosocial: Yes Anxiety Integumentary: Yes Psoriasis Blood Disorders: Yes (CHRONIC ANEMIA-GI LOSS/GAVE SYNDROME; MULT TRANSFUSIONS/MULT ANTIBODIES) Adverse Reaction/Blood Tranf: Yes (Antibody JKA) Family Medical History Arthritis G8 BROTHER Completed stroke 19 MOTHER FH: anemia 19 MOTHER FH: lupus G8 SISTER FH: throat cancer 19 FATHER Hypertension G8 SISTER Myocardial infarction 19 MOTHER Thyroid disease 19 MOTHER G8 SISTER Hypertension, Stroke, Other Conditions/Hx PSH: -LEFT ANKLE SURGERY -LEFT KNEE SURGERY -CARDIAC CATHS--STENT X 1 -4 VESSEL CABG AT [facility] 02/16/18 -THORACENTESIS -TONSILLECTOMY/ADENOIDECTOMY -BTL Physical Exam Vital Signs Vital Signs - First Documented 03/13/20 16:35 Temp 37.0 Pulse 99 Resp 20 B/P (MAP) 149/68 (95) Pulse Ox 91 O2 Delivery Room Air Capillary Refill : Height/Weight/BMI Height: 5'4.00" Weight: 196lbs. 5.0oz. 89.218214po; 37.34 BMI Method:Stated General Appearance: WD/WN, no apparent distress Respiratory: lungs clear, normal breath sounds, no respiratory distress Cardiovascular: normal peripheral pulses, regular rate, rhythm Gastrointestinal: soft; No distended, No guarding, No rebound; tenderness (mild diffuse) Extremities: normal range of motion, non-tender Neurologic/Psychiatric: alert, normal mood/affect, oriented x 3 Skin: normal color, warm/dry Procedures/Interventions Date of ETT Placement: May 30, 2018 Time of ETT Placement: 1330 Progress/Results/Core Measures Results/Orders Lab Results Laboratory Tests Test 03/13/20 17:05 Range/Units White Blood Count 6.4 4.3-11.0 10^3/uL Red Blood Count 3.25 L 3.80-5.11 10^6/uL Hemoglobin 9.9 L 11.5-16.0 g/dL Hematocrit 30 L 35-52 % Mean Corpuscular Volume 93 80-99 fL Mean Corpuscular Hemoglobin 31 25-34 pg Mean Corpuscular Hemoglobin Concent 33 32-36 g/dL Red Cell Distribution Width 16.1 H 10.0-14.5 % Platelet Count 149 130-400 10^3/uL Mean Platelet Volume 11.0 9.0-12.2 fL Immature Granulocyte % (Auto) 0 % Neutrophils (%) (Auto) 62 42-75 % Lymphocytes (%) (Auto) 16 12-44 % Monocytes (%) (Auto) 11 0-12 % Eosinophils (%) (Auto) 9 0-10 % Basophils (%) (Auto) 1 0-10 % Neutrophils # (Auto) 4.0 1.8-7.8 10^3/uL Lymphocytes # (Auto) 1.1 1.0-4.0 10^3/uL Monocytes # (Auto) 0.7 0.0-1.0 10^3/uL Eosinophils # (Auto) 0.6 H 0.0-0.3 10^3/uL Basophils # (Auto) 0.1 0.0-0.1 10^3/uL Immature Granulocyte # (Auto) 0.0 0.0-0.1 10^3/uL Sodium Level 138 135-145 MMOL/L Potassium Level 3.7 3.6-5.0 MMOL/L Chloride Level 99 98-107 MMOL/L Carbon Dioxide Level 27 21-32 MMOL/L Anion Gap 12 5-14 MMOL/L Blood Urea Nitrogen 38 H 7-18 MG/DL Creatinine 2.37 H 0.60-1.30 MG/DL Estimat Glomerular Filtration Rate 21 BUN/Creatinine Ratio 16 Glucose Level 248 H 70-105 MG/DL Calcium Level 9.8 8.5-10.1 MG/DL Corrected Calcium 9.7 8.5-10.1 MG/DL Total Bilirubin 0.7 0.1-1.0 MG/DL Aspartate Amino Transf (AST/SGOT) 21 5-34 U/L Alanine Aminotransferase (ALT/SGPT) 12 0-55 U/L Alkaline Phosphatase 82 40-136 U/L Total Protein 7.8 6.4-8.2 GM/DL Albumin 4.1 3.2-4.5 GM/DL Lipase 62 8-78 U/L My Orders Orders - JOLLEY,BORIS L DO Cbc With Automated Diff (03/13/20 16:47) Comprehensive Metabolic Panel (03/13/20 16:47) Lipase (03/13/20 16:47) Acute Abd Series (03/13/20 16:47) Promethazine Injection (Phenergan Injec (03/13/20 16:47) Famotidine Injection (Pepcid Injection) (03/13/20 16:47) Vital Signs/I&O 03/13/20 03/13/20 16:35 18:30 Temp 37.0 37.0 Pulse 99 108 Resp 20 20 B/P (MAP) 149/68 (95) 133/81 (95) Pulse Ox 91 94 O2 Delivery Room Air Room Air Progress Progress Note : Progress Note Patient with no episodes of vomiting while here in the ER. Patient symptoms and evaluation are consistent with her known chronic illnesses. Recommend she follow-up with her primary care provider which she states she has an appointment in early March around the or . Patient is stable will be discharged home Departure Impression Primary Impression: Chronic nausea Additional Impression: Chronic kidney disease Qualified Codes: N18.9 - Chronic kidney disease, unspecified Disposition: HOME, SELF-CARE Condition: Stable Departure-Patient Inst. Referrals: JAMES TORRES MD (PCP/Family) Primary Care Physician Patient Instructions: Nausea and Vomiting, Adult, Chronic Kidney Disease Add. Discharge Instructions: Please keep your appointment to follow-up with your primary care provider Emergency department focuses on treating and ruling out life-threatening diseases. Whenever possible, a diagnosis is given. However, most patients are given an impression based on their history, physical exam, and workup during your brief time in the ER. Information about probable diagnosis and other educat ional material has been provided. Please take the time to read and understand this information. It is very important that you follow up with a physician as discussed during the visit today. Failure to adhere to your follow-up instructions may lead to severe disability, injury, or so please make sure to keep your appointments or obtain one as requested. Please keep in mind the emergency department is not designed to your primary care or "family doctor" and nonurgent issues are best evaluated by an outpatient physician All discharge instructions reviewed with patient and/or family. Voiced understanding. BORIS JOLLEY DO Mar 13, 2020 16:47
[2020-03-13 17:22] LABS: BASOPHILS # (AUTO) 0.1 10^3/uL (0.0-0.1); BASOPHILS % (AUTO) 1 % (0-10); EOSINOPHILS # (AUTO) 0.6 10^3/uL (0.0-0.3); EOSINOPHILS % (AUTO) 9 % (0-10); HEMATOCRIT 30 % (35-52); HEMOGLOBIN 9.9 g/dL (11.5-16.0); LYMPHOCYTES # (AUTO) 1.1 10^3/uL (1.0-4.0); LYMPHOCYTES % (AUTO) 16 % (12-44); MEAN CORPUSCULAR HEMOGLOBIN 31 pg (25-34); MEAN CORPUSCULAR HGB CONC 33 g/dL (32-36); MEAN CORPUSCULAR VOLUME 93 fL (80-99); MONOCYTES # (AUTO) 0.7 10^3/uL (0.0-1.0); MONOCYTES % (AUTO) 11 % (0-12); NEUTROPHILS % (AUTO) 62 % (42-75); PLATELET COUNT 149 10^3/uL (130-400); WHITE BLOOD COUNT 6.4 10^3/uL (4.3-11.0)
[2020-03-13 17:30] LABS: ALBUMIN 4.1 GM/DL (3.2-4.5); POTASSIUM 3.7 MMOL/L (3.6-5.0)
[2020-03-13 17:31] LABS: CALCIUM 9.8 MG/DL (8.5-10.1)
[2020-03-13 17:33] LABS: TOTAL PROTEIN 7.8 GM/DL (6.4-8.2)
[2020-03-13 17:34] LABS: BILIRUBIN,TOTAL 0.7 MG/DL (0.1-1.0)
[2020-03-13 17:36] LABS: CREATININE SERUM 2.37 MG/DL (0.60-1.30)
--- NOTE | 2020-03-13 17:48 | Diagnostic Imaging Report ---
HISTORY: Vomiting and abdominal pain, cough and shortness of breath. COMPARISON: 01/10/[address] from 12/21/2019. TECHNIQUE: Frontal view of the chest. Supine and upright frontal views of the abdomen. FINDINGS: There is mild elevation of the left hemidiaphragm which appears stable since the prior study. Left basilar opacities likely represent chronic scarring. No new consolidation is seen. The right-sided Port-A-Cath tip projects over the upper SVC. Sternotomy wires and post-CABG changes are seen. The cardiac silhouette is normal in size. There is no pleural effusion or pneumothorax. There is gas in the colon and small bowel with no significant distention seen. No large collection of free air is seen. There are degenerative changes in the lumbar spine. IMPRESSION: 1. Chronic scarring in the left lung base with no acute pulmonary abnormality seen. 2. No evidence of bowel obstruction or large collection of free air. Dictated by: Dictated on workstation # [id number]
[2020-03-13 18:30] VITALS: BP 133/81
== END 2020-03-13 18:30 | disposition home or self-care (01) ==
LOC: EDUNIT# 16:11 → ER 16:12
DX: R11.2 Nausea with vomiting, unspecified (principal); I13.0 Hypertensive heart and chronic kidney disease with heart failure and stage 1 through stage 4 chronic kidney disease, or unspecified chronic kidney disease; N18.9 Chronic kidney disease, unspecified; I50.9 Heart failure, unspecified; E11.22 Type 2 diabetes mellitus with diabetic chronic kidney disease; I25.2 Old myocardial infarction; E03.9 Hypothyroidism, unspecified; E66.9 Obesity, unspecified; K21.9 Gastro-esophageal reflux disease without esophagitis; Z82.49 Family history of ischemic heart disease and other diseases of the circulatory system; Z82.61 Family history of arthritis; Z80.0 Family history of malignant neoplasm of digestive organs; Z95.5 Presence of coronary angioplasty implant and graft; Z95.1 Presence of aortocoronary bypass graft; Z87.891 Personal history of nicotine dependence; Z68.37 Body mass index [BMI] 37.0-37.9, adult; Z79.4 Long term (current) use of insulin; Z88.2 Allergy status to sulfonamides; Z88.5 Allergy status to narcotic agent; Z88.8 Allergy status to other drugs, medicaments and biological substances
CPT/HCPCS: 36415; 74022; 80053; 83690; 85025

== ENCOUNTER 2020-04-12 13:36 | Outpatient (RCR) | payer MEDICARE ==
[2020-01-20 11:38] LABS: BASOPHILS # (AUTO) 0.1 10^3/uL (0.0-0.1); BASOPHILS % (AUTO) 2 % (0-10); EOSINOPHILS # (AUTO) 0.7 10^3/uL (0.0-0.3); EOSINOPHILS % (AUTO) 13 % (0-10); HEMATOCRIT 30 % (35-52); HEMOGLOBIN 9.6 G/DL (11.5-16.0); LYMPHOCYTES # (AUTO) 1.1 X 10^3 (1.0-4.0); LYMPHOCYTES % (AUTO) 20 % (12-44); MEAN CORPUSCULAR HEMOGLOBIN 31 PG (25-34); MEAN CORPUSCULAR HGB CONC 32 G/DL (32-36); MEAN CORPUSCULAR VOLUME 96 FL (80-99); MEAN PLATELET VOLUME 10.1 FL (7.4-10.4); MONOCYTES # (AUTO) 0.6 X 10^3 (0.0-1.0); MONOCYTES % (AUTO) 12 % (0-12); NEUTROPHILS # (AUTO) 2.9 X 10^3 (1.8-7.8); NEUTROPHILS % (AUTO) 54 % (42-75); PLATELET COUNT 182 10^3/uL (130-400); WHITE BLOOD COUNT 5.5 10^3/uL (4.3-11.0)
[2020-02-03 12:19] LABS: BASOPHILS # (AUTO) 0.1 10^3/uL (0.0-0.1); BASOPHILS % (AUTO) 2 % (0-10); EOSINOPHILS # (AUTO) 0.5 10^3/uL (0.0-0.3); EOSINOPHILS % (AUTO) 12 % (0-10); HEMATOCRIT 29 % (35-52); LYMPHOCYTES # (AUTO) 0.8 X 10^3 (1.0-4.0); LYMPHOCYTES % (AUTO) 19 % (12-44); MEAN CORPUSCULAR HEMOGLOBIN 30 PG (25-34); MEAN CORPUSCULAR HGB CONC 32 G/DL (32-36); MEAN CORPUSCULAR VOLUME 94 FL (80-99); MEAN PLATELET VOLUME 10.6 FL (7.4-10.4); MONOCYTES # (AUTO) 0.4 X 10^3 (0.0-1.0); MONOCYTES % (AUTO) 10 % (0-12); NEUTROPHILS # (AUTO) 2.3 X 10^3 (1.8-7.8); NEUTROPHILS % (AUTO) 57 % (42-75); PLATELET COUNT 151 10^3/uL (130-400); WHITE BLOOD COUNT 4.1 10^3/uL (4.3-11.0)
[2020-02-16 14:04] LABS: BASOPHILS % (AUTO) 1 % (0-10); EOSINOPHILS # (AUTO) 0.5 10^3/uL (0.0-0.3); EOSINOPHILS % (AUTO) 11 % (0-10); HEMATOCRIT 25 % (35-52); HEMOGLOBIN 8.1 G/DL (11.5-16.0); LYMPHOCYTES # (AUTO) 0.8 X 10^3 (1.0-4.0); LYMPHOCYTES % (AUTO) 18 % (12-44); MEAN CORPUSCULAR HEMOGLOBIN 30 PG (25-34); MEAN CORPUSCULAR HGB CONC 32 G/DL (32-36); MEAN CORPUSCULAR VOLUME 92 FL (80-99); MEAN PLATELET VOLUME 10.5 FL (7.4-10.4); MONOCYTES # (AUTO) 0.6 X 10^3 (0.0-1.0); MONOCYTES % (AUTO) 12 % (0-12); NEUTROPHILS # (AUTO) 2.8 X 10^3 (1.8-7.8); NEUTROPHILS % (AUTO) 59 % (42-75); PLATELET COUNT 156 10^3/uL (130-400); WHITE BLOOD COUNT 4.8 10^3/uL (4.3-11.0)
[2020-02-16 14:22] LABS: ALBUMIN 3.8 GM/DL (3.2-4.5); BILIRUBIN,TOTAL 0.5 MG/DL (0.1-1.0); CALCIUM 9.9 MG/DL (8.5-10.1); CREATININE SERUM 2.69 MG/DL (0.60-1.30); POTASSIUM 3.8 MMOL/L (3.6-5.0); TOTAL PROTEIN 7.3 GM/DL (6.4-8.2)
[2020-02-16 14:53] LABS: RETICULOCYTE % 1.54 % (0.50-2.40)
[2020-02-24 11:54] LABS: BASOPHILS # (AUTO) 0.1 10^3/uL (0.0-0.1); BASOPHILS % (AUTO) 1 % (0-10); EOSINOPHILS # (AUTO) 0.7 10^3/uL (0.0-0.3); EOSINOPHILS % (AUTO) 14 % (0-10); HEMATOCRIT 26 % (35-52); HEMOGLOBIN 8.3 G/DL (11.5-16.0); LYMPHOCYTES % (AUTO) 19 % (12-44); MEAN CORPUSCULAR HEMOGLOBIN 29 PG (25-34); MEAN CORPUSCULAR HGB CONC 32 G/DL (32-36); MEAN CORPUSCULAR VOLUME 91 FL (80-99); MEAN PLATELET VOLUME 10.3 FL (7.4-10.4); MONOCYTES # (AUTO) 0.6 X 10^3 (0.0-1.0); MONOCYTES % (AUTO) 12 % (0-12); NEUTROPHILS # (AUTO) 2.8 X 10^3 (1.8-7.8); NEUTROPHILS % (AUTO) 55 % (42-75); PLATELET COUNT 211 10^3/uL (130-400); WHITE BLOOD COUNT 5.1 10^3/uL (4.3-11.0)
[2020-03-02 12:05] LABS: BASOPHILS # (AUTO) 0.1 10^3/uL (0.0-0.1); BASOPHILS % (AUTO) 1 % (0-10); EOSINOPHILS # (AUTO) 0.7 10^3/uL (0.0-0.3); EOSINOPHILS % (AUTO) 14 % (0-10); HEMATOCRIT 27 % (35-52); HEMOGLOBIN 8.6 G/DL (11.5-16.0); LYMPHOCYTES % (AUTO) 21 % (12-44); MEAN CORPUSCULAR HEMOGLOBIN 30 PG (25-34); MEAN CORPUSCULAR HGB CONC 32 G/DL (32-36); MEAN CORPUSCULAR VOLUME 92 FL (80-99); MONOCYTES # (AUTO) 0.5 X 10^3 (0.0-1.0); MONOCYTES % (AUTO) 10 % (0-12); NEUTROPHILS # (AUTO) 2.5 X 10^3 (1.8-7.8); NEUTROPHILS % (AUTO) 53 % (42-75); PLATELET COUNT 198 10^3/uL (130-400); WHITE BLOOD COUNT 4.8 10^3/uL (4.3-11.0)
[2020-03-30 13:52] LABS: BASOPHILS # (AUTO) 0.1 10^3/uL (0.0-0.1); BASOPHILS % (AUTO) 1 % (0-10); EOSINOPHILS # (AUTO) 0.6 10^3/uL (0.0-0.3); EOSINOPHILS % (AUTO) 12 % (0-10); HEMATOCRIT 28 % (35-52); HEMOGLOBIN 9.1 g/dL (11.5-16.0); LYMPHOCYTES # (AUTO) 0.9 10^3/uL (1.0-4.0); LYMPHOCYTES % (AUTO) 18 % (12-44); MEAN CORPUSCULAR HEMOGLOBIN 31 pg (25-34); MEAN CORPUSCULAR HGB CONC 32 g/dL (32-36); MEAN CORPUSCULAR VOLUME 96 fL (80-99); MEAN PLATELET VOLUME 10.2 fL (9.0-12.2); MONOCYTES # (AUTO) 0.5 10^3/uL (0.0-1.0); MONOCYTES % (AUTO) 10 % (0-12); NEUTROPHILS # (AUTO) 2.9 10^3/uL (1.8-7.8); NEUTROPHILS % (AUTO) 58 % (42-75); PLATELET COUNT 151 10^3/uL (130-400)
[~2020-04-12 13:36] MED LIST changes: +CYANOCOBALAMIN INJ 1000 MCG/ML (CANCER CENTER) ONE; +DARBEPOETIN 40 MCG/ML (ARANESP) 1 ML VIAL SC SCH; +DARBEPOETIN 60 MCG/ML ARANESP (CANCER CTR) INJ SCH; +FERRIC CARBOXYMALTOSE (CANCER) 750 MG in NS (IVPB) CANCER CENTER 250 ML IV SCH
[2020-04-12 14:05] LABS: ABSOLUTE RETIC # 75 10e9/uL (24-90); BASOPHILS % (AUTO) 1 % (0-10); EOSINOPHILS # (AUTO) 0.5 10^3/uL (0.0-0.3); EOSINOPHILS % (AUTO) 11 % (0-10); HEMATOCRIT 30 % (35-52); HEMOGLOBIN 9.4 g/dL (11.5-16.0); LYMPHOCYTES # (AUTO) 0.9 10^3/uL (1.0-4.0); LYMPHOCYTES % (AUTO) 19 % (12-44); MEAN CORPUSCULAR HEMOGLOBIN 31 pg (25-34); MEAN CORPUSCULAR HGB CONC 32 g/dL (32-36); MEAN CORPUSCULAR VOLUME 96 fL (80-99); MEAN PLATELET VOLUME 10.5 fL (9.0-12.2); MONOCYTES # (AUTO) 0.4 10^3/uL (0.0-1.0); MONOCYTES % (AUTO) 9 % (0-12); NEUTROPHILS # (AUTO) 2.8 10^3/uL (1.8-7.8); NEUTROPHILS % (AUTO) 59 % (42-75); PLATELET COUNT 156 10^3/uL (130-400); RETICULOCYTE % 2.42 % (0.50-2.40); WHITE BLOOD COUNT 4.6 10^3/uL (4.3-11.0)
[2020-04-12 14:21] LABS: ALBUMIN 3.8 GM/DL (3.2-4.5); BILIRUBIN,TOTAL 0.6 MG/DL (0.1-1.0); CALCIUM 9.1 MG/DL (8.5-10.1); CREATININE SERUM 2.41 MG/DL (0.60-1.30); POTASSIUM 3.6 MMOL/L (3.6-5.0); TOTAL PROTEIN 7.4 GM/DL (6.4-8.2)
[2020-04-12] MEDS ORDERED: DARBEPOETIN 40 MCG/ML (ARANESP) 1 ML VIAL SC SCH (14:30)
[2020-04-12] MEDS ORDERED: CYANOCOBALAMIN INJ 1000 MCG/ML (CANCER CENTER) ONE (14:31)
== END 2020-04-19 | disposition home or self-care (01) ==
LOC: ONC 13:36
PROVIDERS: ATTEND Internal Medicine Hematology & Oncology
DX: E11.22 Type 2 diabetes mellitus with diabetic chronic kidney disease (principal); I13.0 Hypertensive heart and chronic kidney disease with heart failure and stage 1 through stage 4 chronic kidney disease, or unspecified chronic kidney disease; N18.4 Chronic kidney disease, stage 4 (severe); D63.1 Anemia in chronic kidney disease; E53.8 Deficiency of other specified B group vitamins; D50.9 Iron deficiency anemia, unspecified; I25.10 Atherosclerotic heart disease of native coronary artery without angina pectoris; E03.9 Hypothyroidism, unspecified; K29.51 Unspecified chronic gastritis with bleeding; I48.91 Unspecified atrial fibrillation; K74.60 Unspecified cirrhosis of liver; I50.30 Unspecified diastolic (congestive) heart failure; K64.9 Unspecified hemorrhoids; K44.9 Diaphragmatic hernia without obstruction or gangrene; E78.5 Hyperlipidemia, unspecified; E66.9 Obesity, unspecified; M19.90 Unspecified osteoarthritis, unspecified site; I47.1 Supraventricular tachycardia; K63.5 Polyp of colon; K31.811 Angiodysplasia of stomach and duodenum with bleeding; Z79.899 Other long term (current) drug therapy; Z80.0 Family history of malignant neoplasm of digestive organs; Z68.33 Body mass index [BMI] 33.0-33.9, adult
CPT/HCPCS: 36591; 80053; 82728; 84443; 85025; 85045; 96365; 96372

== ENCOUNTER 2020-05-18 15:33 | Inpatient (IN) | payer MEDICARE ==
[~2020-05-18] VITALS: Ht 162 cm; Wt 102.0 kg
[~2020-05-18 15:33] MED LIST changes: -CYANOCOBALAMIN INJ 1000 MCG/ML (CANCER CENTER) ONE; -DARBEPOETIN 40 MCG/ML (ARANESP) 1 ML VIAL SC SCH; -DARBEPOETIN 60 MCG/ML ARANESP (CANCER CTR) INJ SCH; -FERRIC CARBOXYMALTOSE (CANCER) 750 MG in NS (IVPB) CANCER CENTER 250 ML IV SCH
[2020-05-18 16:21] LABS: BASOPHILS % (AUTO) 1 % (0-10); EOSINOPHILS # (AUTO) 0.4 10^3/uL (0.0-0.3); EOSINOPHILS % (AUTO) 9 % (0-10); HEMATOCRIT 30 % (35-52); HEMOGLOBIN 9.6 g/dL (11.5-16.0); LYMPHOCYTES # (AUTO) 0.8 10^3/uL (1.0-4.0); LYMPHOCYTES % (AUTO) 17 % (12-44); MEAN CORPUSCULAR HEMOGLOBIN 31 pg (25-34); MEAN CORPUSCULAR HGB CONC 32 g/dL (32-36); MEAN CORPUSCULAR VOLUME 97 fL (80-99); MEAN PLATELET VOLUME 10.4 fL (9.0-12.2); MONOCYTES # (AUTO) 0.5 10^3/uL (0.0-1.0); MONOCYTES % (AUTO) 11 % (0-12); NEUTROPHILS # (AUTO) 2.9 10^3/uL (1.8-7.8); NEUTROPHILS % (AUTO) 62 % (42-75); PLATELET COUNT 156 10^3/uL (130-400); WHITE BLOOD COUNT 4.6 10^3/uL (4.3-11.0)
[2020-05-18 16:30] LABS: BILIRUBIN,URINE NEGATIVE (NEGATIVE); CLARITY,URINE CLEAR; COLOR,URINE YELLOW; GLUCOSE, URINE (UA) NEGATIVE (NEGATIVE); KETONES,URINE NEGATIVE (NEGATIVE); LEUKOCYTE ESTERASE ,URINE NEGATIVE (NEGATIVE); NITRITE,URINE NEGATIVE (NEGATIVE); PH,URINE 7.5 (5-9); PROTEIN,URINE NEGATIVE (NEGATIVE)
[2020-05-18 16:30] LABS: ALBUMIN 3.8 GM/DL (3.2-4.5); POTASSIUM 3.6 MMOL/L (3.6-5.0)
[2020-05-18 16:33] LABS: TOTAL PROTEIN 7.1 GM/DL (6.4-8.2)
[2020-05-18 16:34] LABS: BILIRUBIN,TOTAL 0.6 MG/DL (0.1-1.0)
[2020-05-18 16:36] LABS: CREATININE SERUM 2.15 MG/DL (0.60-1.30)
[2020-05-18 16:41] LABS: BACTERIA,URINE TRACE /HPF; HYALINE CASTS, URINE RARE /LPF; YEAST,URINE FEW /HPF
[2020-05-18] MEDS ORDERED: NS IV 1000 ML 1,000 ML ONE (17:01)
--- NOTE | 2020-05-18 17:01 | ED General ---
General Chief Complaint: Altered Mental Status Stated Complaint: CONFUSION Nursing Triage Note: PT BROUGHT TO ED BY SPOUSE FOR CONFUSION AND INCONTINENCE. PT STATES THAT INCONTINENCE STARTED YESTERDAY. DENIES FEVERS. Nursing Sepsis Screen: No Definite Risk Source of Information: Patient Exam Limitations: No Limitations History of Present Illness Date Seen by Provider: May 18, 2020 Time Seen by Provider: 15:40 Initial Comments This is 64-year-old woman with history of gastric antral vascular ectasia and rather significant complications from this disorder presents to the emergency room today with generalized weakness, confusion, and complaints that "I do not feel well" and "incontinence". In review of patient's chart, it appears that she has suffered from hepatic encephalopathy over the past year with several very high ammonia measurements. She presently takes lactulose and Xifaxan. She is also diabetic but her blood sugar was 219 on fingerstick. In review of her medication filling record, it appears that she just recently started Topamax 50 mg twice daily. This could potentially be related to her altered mental status as it is a new medication. Nursing staff reports that they have seen her with this type of mental status change in the past and actually more severe in the past from infectious or metabolic insult. Patient lives at home with her . She does not appear to have specific focal deficits but seems to have a more global insult. Patient reports the symptoms have been present for at least a couple of days. Allergies and Home Medications Allergies Coded Allergies: Qmxgxgp-Gkn-Xyj Reductase Inhibitor (Verified Allergy, Intermediate, GI UPSET, N/V, 05/18/20) cefadroxil (Verified Allergy, Mild, 05/18/20) Sulfa (Sulfonamide Antibiotics) (Verified Allergy, Unknown, 05/18/20) oxycodone (Verified Allergy, Unknown, 05/18/20) "makes skin crawl" Home Medications Bumetanide 1 Mg Tablet, 1 MG PO DAILY, (Reported) Bumetanide 1 Mg Tablet, 1 MG PO DAILY PRN for SWELLING, (Reported) MAY TAKE AN ADDITIONAL DOSE IF NEEDED Cetirizine HCl 10 Mg Tablet, 10 MG PO DAILY, (Reported) Glucosa Horne 2Kcl/Chondroitin Horne 1 Each Capsule, 1 CAP PO BID, (Reported) Insulin Aspart 300 Units/3 Ml Solution, 8 UNITS SQ AC, (Reported) Insulin NPH Human Isophane 100 Unit/1 Ml Vial, SQ AC, (Reported) LAST FILLED 09-05-2019 #10 VIALS SLIDING SCALE A Lactulose 20 Gm/30 Ml Solution, 20 GM PO BID Prescribed by: SUMAN GARNETT on 05/20/20 1112 Levothyroxine Sodium 125 Mcg Tablet, 125 MCG PO DAILY, (Reported) LAST FILLED 09-06-2019 #30 Magnesium Oxide 400 Mg Tablet, 400 MG PO BID, (Reported) Metoclopramide HCl 10 Mg Tablet, 10 MG PO BIDAC PRN for STOMACH UPSET, (Reporte d) Metolazone 5 Mg Tablet, 5 MG PO SUN,CARLENE PRN for WEIGHT>195, (Reported) Nitroglycerin 0.4 Mg Tab.subl, 0.4 MG SL UD PRN for CHEST PAIN, (Reported) Omeprazole 40 Mg Capsule.dr, 40 MG PO BID, (Reported) Promethazine HCl 25 Mg Tablet, 12.5 MG PO Q12H PRN for NAUSEA/VOMITING-2ND LINE, (Reported) Rifaximin 550 Mg Tablet, 550 MG PO BID Prescribed by: SUMAN GARNETT on 05/20/20 1112 Tizanidine HCl 2 Mg Tablet, 2 MG PO TID PRN for MUSCLE SPASMS, (Reported) Tramadol HCl 50 Mg Tablet, 50 MG PO TID PRN for PAIN-MODERATE, (Reported) [Folic Acid] , 1 MG PO DAILY, (Reported) LAST FILLED 09-11-2019 #30 Patient Home Medication List Home Medication List Reviewed: Yes Review of Systems Review of Systems Constitutional: see HPI EENTM: no symptoms reported Respiratory: no symptoms reported Cardiovascular: no symptoms reported Gastrointestinal: see HPI Genitourinary: see HPI : No Musculoskeletal: see HPI Skin: no symptoms reported Psychiatric/Neurological: See HPI Hematologic/Lymphatic: No Symptoms Reported Past Sesodhu-Pgsqfl-Fudsnf Hx Past Med/Social Hx: Reviewed Nursing Past Med/Soc Hx Patient Social History Alcohol Use: Denies Use Recreational Drug Use: No Smoking Status: Former Smoker Type Used: Cigarettes Former Smoker, Quit: May 20, 1980 2nd Hand Smoke Exposure: No Recent Foreign Travel: No Contact w/Someone Who Travel: No Recent Infectious Disease Expo: No Recent Hopitalizations: No Immunizations Up To Date Tetanus Booster (TDap): Unknown PED Vaccines UTD: Yes Date of Pneumonia Vaccine: May 16, 2019 Date of Influenza Vaccine: Apr 15, 2019 Seasonal Allergies Seasonal Allergies: Yes Past Medical History Surgeries: Yes Adenoidectomy, Cardiac, CABG, Coronary Stent, Open Heart Surgery, Orthopedic, Tonsillectomy, Tubal Ligation Respiratory: Yes (LEFT PLEURAL EFFUSION-S/P THORACENTESIS) Pneumonia, Sleep Apnea Currently Using CPAP: No Currently Using BIPAP: No Cardiac: Yes (CHF, STENT X1; CABG 02/16/2018 x 4 @ [facility];NSTEMI X 3) Atrial Fibrillation, Chronic Edema/Swelling, Coronary Artery Disease, Heart Attack, High Cholesterol, Hypertension Neurological: Yes (CHRONIC BASELINE CONFUSION) Dementia Reproductive Disorders: No Female 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 LIVER DZ/ELEV AMMONIA) Gastroesophageal Reflux, Liver Disease/Jaundice, Gastrointestinal Bleed, Diverticulosis, Hemorrhoids, Polyps Musculoskeletal: Yes (POOR AMBULATION--USES WALKER SINCE CABG; L ANKLE AND KNEE SURGERIES) Degenerate Disk Disease, Arthritis, Chronic Back Pain, Fractures Endocrine: Yes (OBESITY) Diabetes, Insulin dep, Hypothyroidsim HEENT: No Loss of Vision: Denies Hearing Impairment: Denies Cancer: No Psychosocial: Yes Anxiety Integumentary: Yes Psoriasis Blood Disorders: Yes (CHRONIC ANEMIA-GI LOSS/GAVE SYNDROME; MULT TRANSFUSIONS/MULT ANTIBODIES) Adverse Reaction/Blood Tranf: Yes (Antibody JKA) Family Medical History Arthritis G8 BROTHER Completed stroke 19 MOTHER FH: anemia 19 MOTHER FH: lupus G8 SISTER FH: throat cancer 19 FATHER Hypertension G8 SISTER Myocardial infarction 19 MOTHER Thyroid disease 19 MOTHER G8 SISTER Hypertension, Stroke, Other Conditions/Hx PSH: -LEFT ANKLE SURGERY -LEFT KNEE SURGERY -CARDIAC CATHS--STENT X 1 -4 VESSEL CABG AT [facility] 02/16/18 -THORACENTESIS -TONSILLECTOMY/ADENOIDECTOMY -BTL Physical Exam Vital Signs Vital Signs - First Documented 05/18/20 05/18/20 15:40 18:25 Temp 36.5 Pulse 97 Resp 18 B/P (MAP) 140/76 (97) Pulse Ox 99 O2 Delivery Simple Mask Capillary Refill : Less Than 3 Seconds Height, Weight, BMI Height: 5'4.00" Weight: 196lbs. 5.0oz. 89.058072yg; 30.00 BMI Method:Stated General Appearance: No Apparent Distress, WD/WN, Other (Generalized weakness) HEENT: PERRL/EOMI, Normal ENT Inspection, Pharynx Normal Neck: Normal Inspection Respiratory: Lungs Clear, Normal Breath Sounds, No Accessory Muscle Use Cardiovascular: Regular Rate, Rhythm, No Edema, No Murmur Gastrointestinal: Normal Bowel Sounds, Non Tender, Soft Extremity: Normal Inspection, No Pedal Edema Neurologic/Psychiatric: Alert, Motor Weakness (Generalized), Other (Disoriented to month, year, and age. She answers "April" to all of those questions of orientation. However, she can answer many questions and give some specific history.) Skin: Normal Color, Warm/Dry Procedures/Interventions Date of ETT Placement: May 30, 2018 Time of ETT Placement: 1330 Progress/Results/Core Measures Suspected Sepsis Recent Fever Within 48 Hours: No Infection Criteria Present: None New/Unexplained Altered Menta: No Sepsis Screen: No Definite Risk SIRS Temperature: Pulse: 97 Respiratory Rate: 18 Laboratory Tests 05/20/20 05:53: White Blood Count 5.4 Blood Pressure 140 /76 Mean: 97 Laboratory Tests 05/20/20 05:53: Creatinine 1.89H, Platelet Count 129L, Total Bilirubin 0.5 Results/Orders Lab Results My Orders Medications Given in ED Vital Signs/I&O Capillary Refill : Less Than 3 Seconds Blood Pressure Mean: 97 Point of Care Testing Finger Stick Blood Glucose: 219 Blood Glucose Action Taken: PROVIDER NOTIFIED Progress Note : Progress Note Patient again seems to have elevated ammonia levels along with her chronic renal failure. She is being treated with lactulose and IV fluids starting in the ER. Nursing staff seems to think this is similar to her prior episodes of hepatic encephalopathy and urinary tract infections and is actually not as severe. We will try treating her with continued Xifaxan, lactulose, and IV fluids and monitor her progress. Departure Communication (Admissions) Time/Spoke to Admitting Phy: 17:15 Dr. Garnett Impression Primary Impression: Hepatic encephalopathy Additional Impression: Generalized weakness Disposition: ADMITTED INPATIENT Condition: Stable Admissions Decision to Admit Reason: Admit from ER (General) Decision to Admit/Date: May 18, 2020 Time/Decision to Admit Time: 17:00 Departure-Patient Inst. Referrals: JAMES TORRES MD (PCP/Family) Primary Care Physician Scripts Lactulose (Lactulose) 20 Gm/30 Ml Solution 20 GM PO BID for 30 Days, #60 EA 1 Refill Prov: SUMAN GARNETT MD 05/20/20 Rifaximin (Xifaxan) 550 Mg Tablet 550 MG PO BID for 30 Days, #60 TAB 1 Refill Prov: SUMAN GARNETT MD 05/20/20 MAUREEN AVENDAÑO MD May 18, 2020 17:01
[2020-05-18] MEDS ORDERED: NS IV 1000 ML 1,000 ML IV SCH (17:15)
[2020-05-18] MEDS ORDERED: LACTULOSE SYRUP 10GM/15ML (ENULOSE) 30ML UDC PO ONE (17:15)
[2020-05-18 17:37] LABS: INR 1.1 (0.8-1.4); PROTHROMBIN TIME PATIENT 14.1 SEC (12.2-14.7)
[2020-05-18 18:06] LABS: FREE T4 (FREE THYROXINE) 1.26 NG/DL (0.70-1.48)
--- NOTE | 2020-05-18 18:13 | NUR ---
PTS DAUGHTER HAS BEEN CONTACTED AND UPDATED TO PT BEING TAKEN TO 403 FOR OBSERVATION.
--- NOTE | 2020-05-18 18:36 | NUR ---
YOLETTE PISANO admitted to room 403-1, with an admitting diagnosis of HEPATIC ENCEPHALOPATHY, on 05/18/20 from ED via , accompanied by STAFF. YOLETTE PISANO introduced to surroundings, call light, bed controls, phone, TV, temperature control, lights, meal times, smoking policy, visitor policy, side rail policy, bathrooms and showers. Patient Rights given to patient in the handbook. YOLETTE PISANO verbalizes understanding that [facility] is not responsible for the loss or damage to any personal effects or valuables that are kept in the patients posession during their hospitalization. The following Patient Care Plans were discussed with the PT: Discharge Planning, PAIN, AMS. YOLETTE PISANO verbalizes understanding of Interdisciplinary Patient Education. Patient and/or family were informed about the Rapid Response Team and its purpose.
--- NOTE | 2020-05-18 18:37 | NUR ---
SANDWICH TRAY TO PT. ORIENTED TO ROOM. DR. GR NOTIFIED OF NEED FOR VTE AND NEED FOR ACCUCHECK ORDERS.
[2020-05-18 18:39] VITALS: BP_SYST 140; BP_SYST 144; BP_DIAS 63; BP_DIAS 76
[2020-05-18] MEDS ORDERED: ONDANSETRON 4 MG/2 ML (SDV) Z0FRAN IV PRN (19:00)
[2020-05-18] MEDS ORDERED: CATHETER FLUSH 10 ML SYR IV PRN (19:00)
[2020-05-18] MEDS ORDERED: LACTULOSE SYRUP 10GM/15ML (ENULOSE) 30ML UDC PO SCH (19:00)
[2020-05-18] MEDS: NS IV 1000 ML 1,000 ML IV SCH (20:28)
[2020-05-18 20:35] VITALS: BP 128/60
--- NOTE | 2020-05-18 21:16 | NUR ---
pt complain of pain 9/10 in back and legs, asking for medication to help, dr cortes notified new order received, see order hx
[2020-05-18] MEDS ORDERED: GABAPENTIN 100 MG (NEURONTIN) CAP PO PRN (21:30)
[2020-05-18] MEDS: inSUlin NPH (NovoLIN N) 1 UNIT/0.01 ML (CHARGE PER UNIT) SQ SCH (22:12)
[2020-05-18] MEDS: RIFAXIMIN 550 MG TABLET (XIFAXAN) PO SCH (22:12)
[2020-05-18 23:30] VITALS: BP 126/60
[2020-05-19] MEDS: LACTULOSE SYRUP 10GM/15ML (ENULOSE) 30ML UDC PO SCH ×4 (00:33→17:21)
[2020-05-19 04:00] VITALS: BP 124/60
[2020-05-19] MEDS: NS IV 1000 ML 1,000 ML IV SCH ×2 (05:10→11:16)
[2020-05-19 05:30] LABS: BASOPHILS % (AUTO) 1 % (0-10); EOSINOPHILS # (AUTO) 0.4 10^3/uL (0.0-0.3); EOSINOPHILS % (AUTO) 9 % (0-10); HEMATOCRIT 26 % (35-52); HEMOGLOBIN 8.2 g/dL (11.5-16.0); LYMPHOCYTES % (AUTO) 24 % (12-44); MEAN CORPUSCULAR HEMOGLOBIN 32 pg (25-34); MEAN CORPUSCULAR HGB CONC 32 g/dL (32-36); MEAN CORPUSCULAR VOLUME 99 fL (80-99); MEAN PLATELET VOLUME 10.7 fL (9.0-12.2); MONOCYTES # (AUTO) 0.4 10^3/uL (0.0-1.0); MONOCYTES % (AUTO) 10 % (0-12); NEUTROPHILS # (AUTO) 2.4 10^3/uL (1.8-7.8); NEUTROPHILS % (AUTO) 57 % (42-75); PLATELET COUNT 142 10^3/uL (130-400); WHITE BLOOD COUNT 4.3 10^3/uL (4.3-11.0)
[2020-05-19 05:39] LABS: ALBUMIN 3.3 GM/DL (3.2-4.5)
[2020-05-19 05:40] LABS: POTASSIUM 3.9 MMOL/L (3.6-5.0)
[2020-05-19 05:41] LABS: CALCIUM 8.3 MG/DL (8.5-10.1)
[2020-05-19 05:42] LABS: TOTAL PROTEIN 5.8 GM/DL (6.4-8.2)
[2020-05-19 05:44] LABS: BILIRUBIN,TOTAL 0.3 MG/DL (0.1-1.0)
[2020-05-19 05:46] LABS: CREATININE SERUM 2.23 MG/DL (0.60-1.30)
[2020-05-19 08:00] VITALS: BP 144/64
[2020-05-19] MEDS: inSUlin ASPART (NovoLOG) 1 UNIT/0.01 ML (CHARGE PER UNIT) SC SCH ×2 (10:09→17:21)
[2020-05-19] MEDS: RIFAXIMIN 550 MG TABLET (XIFAXAN) PO SCH ×2 (10:09→21:22)
[2020-05-19] MEDS: inSUlin NPH (NovoLIN N) 1 UNIT/0.01 ML (CHARGE PER UNIT) SQ SCH ×2 (11:16→21:22)
[2020-05-19 12:00] VITALS: BP 135/65
--- NOTE | 2020-05-19 13:10 | History & Physical-Hospitalist ---
History of Present Illness HPI/Chief Complaint This is a 64-year-old white female with a history of gastric antral vascular ectasia with complication secondary to same. She has had intermittent episodes of elevated ammonia and confusion in the last year or 2. She presents with urinary incontinence and elevated ammonia yesterday. She has been complaining primarily this morning of increased diarrhea but that probably is because of the increased lactulose. Other than that she seems to be alert and oriented little unsteady and weak on her feet but improved from yesterday Source: family, old records Exam Limitations: clinical condition Date Seen 05/19/20 Time Seen by a Provider: 11:30 Attending Physician Fay Garnett MD PCP Carla Wilson MD Referring Physician Date of Admission May 18, 2020 at 17:32 Home Medications & Allergies Home Medications Reviewed patient Home Medication Reconciliation performed by pharmacy medication reconciliations dental equipment technician and/or nursing. Patients Allergies have been reviewed. Allergies Allergies Coded Allergies Mgtlahk-Ruy-Eeq Reductase Inhibitor (Verified Allergy, Intermediate, GI UPSET, N/V, 05/18/20) cefadroxil (Verified Allergy, Mild, 05/18/20) Sulfa (Sulfonamide Antibiotics) (Verified Allergy, Unknown, 05/18/20) oxycodone (Verified Allergy, Unknown, 05/18/20) "makes skin crawl" Past Wckqqtu-Dumbhj-Dchueq Hx Past Med/Social Hx: Reviewed Nursing Past Med/Soc Hx Patient Social History Marrital Status: Employed/Student: retired Alcohol Use: Denies Use Recreational Drug Use: No Smoking Status: Former Smoker Former Smoker, Quit: May 20, 1980 Type Used: Cigarettes 2nd Hand Smoke Exposure: No Recent Foreign Travel: No Contact w/other who traveled: No Recent Hopitalizations: No Recent Infectious Disease Expo: No Immunizations Up To Date Tetanus Booster (TDap): Unknown Pediatric: Yes Date of Pneumonia Vaccine: May 16, 2019 Date of Influenza Vaccine: Apr 18, 2020 Seasonal Allergies Seasonal Allergies: Yes Past Medical History Surgeries: Adenoidectomy, Cardiac, CABG, Coronary Stent, Open Heart Surgery, Orthopedic, Tonsillectomy, Tubal Ligation Respiratory: COPD, Sleep Apnea Currently Using CPAP: No Currently Using BIPAP: No Cardiac: Atrial Fibrillation, Chronic Edema/Swelling, Coronary Artery Disease, Heart Attack, High Cholesterol, Hypertension Neurological: Dementia Reproductive: No Sexually Transmitted Disease: No HIV/AIDS: No Female Reproductive Disorders: Denies Menopausal Genitourinary: Bladder Infection, Renal Failure Gastrointestinal: Gastroesophageal Reflux, Liver Disease/Jaundice, Gastrointes tinal Bleed, Diverticulosis, Hemorrhoids, Polyps Musculoskeletal: Degenerate Disk Disease, Arthritis, Chronic Back Pain, Fractures Endocrine: Diabetes, Insulin dep, Hypothyroidsim Loss of Vision: Denies Hearing Impairment: Denies Psychosocial: Anxiety Skin/Integumentary: Psoriasis History of Blood Disorders: Yes (CHRONIC ANEMIA-GI LOSS/GAVE SYNDROME; MULT TRANSFUSIONS/MULT ANTIBODIES) Adverse Reaction to Blood Wright: Yes (Antibody JKA) Family History Arthritis G8 BROTHER Completed stroke 19 MOTHER FH: anemia 19 MOTHER FH: lupus G8 SISTER FH: throat cancer 19 FATHER Hypertension G8 SISTER Myocardial infarction 19 MOTHER Thyroid disease 19 MOTHER G8 SISTER Hypertension, Stroke, Other Conditions/Hx PSH: -LEFT ANKLE SURGERY -LEFT KNEE SURGERY -CARDIAC CATHS--STENT X 1 -4 VESSEL CABG AT [facility] 02/16/18 -THORACENTESIS -TONSILLECTOMY/ADENOIDECTOMY -BTL Review of Systems Constitutional: see HPI, weakness EENTM: no symptoms reported Respiratory: no symptoms reported Cardiovascular: no symptoms reported Gastrointestinal: abdominal pain, diarrhea Genitourinary: frequency, incontinence Musculoskeletal: no symptoms reported Skin: no symptoms reported Psychiatric/Neurological: No Symptoms Reported Physical Exam Physical Exam Vital Signs Vital Signs - First Documented 05/18/20 05/18/20 15:40 18:25 Temp 36.5 Pulse 97 Resp 18 B/P (MAP) 140/76 (97) Pulse Ox 99 O2 Delivery Simple Mask Capillary Refill : Less Than 3 Seconds Height, Weight, BMI Height: 5'4.00" Weight: 196lbs. 5.0oz. 89.523555at; 38.14 BMI Method:Stated General Appearance: No Apparent Distress HEENT: Normal ENT Inspection Neck: Limited Range of Motion Respiratory: Chest Non Tender, Lungs Clear, Normal Breath Sounds, No Accessory Muscle Use, No Respiratory Distress Cardiovascular: Regular Rate, Rhythm, No Gallop, No Murmur, Other (Cari) Gastrointestinal: Soft, Tenderness (Fusilli) Back: Normal Inspection Neurologic/Psychiatric: Alert, No Motor/Sensory Deficits, Motor Weakness, Other Results Results/Procedures Labs Laboratory Tests 05/18/20 16:10 12/5/20 05:15 Patient resulted labs reviewed. 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 Admission Status: Inpatient Order (span 2 midnights) Reason for Inpatient Admission: Complex patient with hepatic encephalopathy and renal failure Clinical Quality Measures DVT/VTE Risk/Contraindication: Risk Factor Score Per Nursin RFS Level Per Nursing on Admit: 4+=Very High Other: GAVE DISEASE AND CHRONIC ANEMIA FAY GARNETT MD May 19, 2020 13:10
--- NOTE | 2020-05-19 13:10 | Physical Therapy Evaluation ---
PT Evaluation-General Medical Diagnosis Admission Date May 18, 2020 at 17:32 Medical Diagnosis: hepatic encephalopathy Onset Date: May 18, 2020 Therapy Diagnosis Therapy Diagnosis: weakness Height/Weight Height (Feet): 5 Height (Inches): 4.00 Weight (Pounds): 196 Weight (Ounces): 5.0 Precautions Precautions/Isolations: Fall Prevention, Standard Precautions Referral Physician: Tamir Reason for Referral: Evaluation/Treatment Medical History Pertinent Medical History: Atrial Fib, CABG, CAD, DM, Dementia, Heart Failure, HTN, Hypothroidism, [place], Renal Insufficiency Current History Admitted with hepatic encephalopathy and elevated ammonia levels Reviewed History: Yes Social History Home: Single Level Current Living Status: Spouse Entry Into Home: Ramp Prior Prior Level of Function SCALE: Activities may be completed with or without assistive devices. 6-Xrwrkrerke-gwuntlu completes the activity by him/herself with no assistance from a helper. 5-Set-up or Clean-up Assistance-helper sets up or cleans up; patient completes activity. [place] assists only prior to or following the activity. 4-Supervision or Touching Assistance-helper provides verbal cues and/or touching/steadying and/or contact guard assistance as patient completes activity. Assistance may be provided throughout the activity or intermittently. 3-Partial/Moderate Assistance-helper does LESS THAN HALF the effort. [place] lifts, holds or supports trunk or limbs, but provides less than half the effort. 2-Substantial/Maximal Assistance-helper does MORE THAN HALF the effort. [place] lifts or holds trunk or limbs and provides more than half the effort. 5-Lsbpcxapi-nwgxla does ALL the effort. Patient does none of the effort to complete the activity. Or, the assistance of 2 or more helpers is required for the patient to complete the activity. If activity was not attempted, code reason: 7-Patient Refused. 9-Not Applicable-not attempted and the patient did not perform the activity before the current illness, exacerbation or injury. 10-Not Attempted due to Environmental Limitations-(lack of equipment, weather restraints, etc.). 88-Not Attempted due to Medical Conditions or Safety Concerns. Bed Mobility: 5 Transfers (B,C,W/C): 5 Gait: 5 PT Evaluation-Current Subjective Pt agrees to PT. Wants to sit up in chair for lunch. Objective Patient Orientation: Person, Confused Attachments: IV flat and slow to respond. this clinician is known to the patient and she does not seem to remember me. ROM/Strength ROM Lower Extremities wNL Strength Lower Extremities WFL Integumentary/Posture Integumentary refer to nursing note.s Bowel Incontinence: No Bladder Incontinence: No Posture rounded shoudlers. Neuromuscular (Tone, Coordination, Reflexes) intact Sensory Vision: Functional Hearing: Functional Sensation Right Lower Extremit: Intact Sensation Left Lower Extremity: Intact Transfers Lying to Sitting/Side of Bed(Q: 3 (min assist and cues to initiate activity) Sit to Stand (QC): 4 Chair/Vaz-uz-Owngm Xfer(QC): 4 Gait Does the Patient Walk?: Yes Walk 10 feet (QC): 4 Gait Assistive Device: FWW Comments/Gait Description Walked from bed to chair with FWW with CGA. Steady. Balance Sitting Static: Normal Sitting Dynamic: Normal Standing Static: Fair Standing Dynamic: Fair Treatment up in chair post treatment with needs met Assessment/Needs Slow to process and takes extra time to complete tasks. Requires light assist with all mobility. Will benefit from PT to progress strength and mobiltiy to allow her to return home as before. Rehab Potential: Guarded PT Social Service Worker Goals Social Service Worker Goals PT Halfway Goals Time Frame: May 26, 2020 Sit to Lying (QC): 6 Lying-Sitting on Side/Bed(QC): 6 Sit to Stand (QC): 6 Chair/Hpf-ww-Lfozz Xfer(QC): 6 Toilet Transfer (QC): 6 Walk 150 ft (QC): 6 PT Plan Problem List Problem List: Activity Tolerance, Functional Strength, Safety, Balance, Gait, Transfer, Bed Mobility Treatment/Plan Treatment Plan: Continue Plan of Care Treatment Plan: Bed Mobility, Education, Functional Activity Tamy, Functional Strength, Gait, Safety, Therapeutic Exercise, Transfers Treatment Duration: May 26, 2020 Frequency: 6 times per week Estimated Hrs Per Day: .25 hour per day Patient and/or Family Agrees t: Yes Safety Risks/Education Patient Education: Transfer Techniques, Safety Issues Teaching Recipient: Patient Teaching Methods: Discussion Response to Teaching: Reinforcement Needed Discharge Recommendations Therapy Discharge Recommendati: Post Acute PT Time/GCodes Time In: 1225 Time Out: 1240 Total Billed Treatment Time: 15 Total Billed Treatment visit EVM 15 JENNIFER SMITH PT May 19, 2020 13:10
[2020-05-19] MEDS ORDERED: PROMETHAZINE 25 MG (PHENERGAN) TAB PO PRN (13:15)
[2020-05-19 15:46] VITALS: BP 128/60
[2020-05-19 19:54] VITALS: BP 153/68
[2020-05-19] MEDS: PANTOPRAZOLE 40 MG (PROTONIX) TAB PO SCH (21:22)
[2020-05-19] MEDS: MAGNESIUM OXIDE (MAG-OX)400 MG TAB PO SCH (21:22)
[2020-05-19 23:55] VITALS: BP 128/62
[2020-05-20] MEDS: LACTULOSE SYRUP 10GM/15ML (ENULOSE) 30ML UDC PO SCH ×3 (00:07→11:32)
[2020-05-20 04:46] VITALS: BP 139/66
[2020-05-20 06:06] LABS: BASOPHILS % (AUTO) 1 % (0-10); EOSINOPHILS # (AUTO) 0.4 10^3/uL (0.0-0.3); EOSINOPHILS % (AUTO) 8 % (0-10); HEMATOCRIT 25 % (35-52); HEMOGLOBIN 8.1 g/dL (11.5-16.0); LYMPHOCYTES % (AUTO) 19 % (12-44); MEAN CORPUSCULAR HEMOGLOBIN 32 pg (25-34); MEAN CORPUSCULAR HGB CONC 32 g/dL (32-36); MEAN CORPUSCULAR VOLUME 100 fL (80-99); MEAN PLATELET VOLUME 10.3 fL (9.0-12.2); MONOCYTES # (AUTO) 0.6 10^3/uL (0.0-1.0); MONOCYTES % (AUTO) 10 % (0-12); NEUTROPHILS # (AUTO) 3.4 10^3/uL (1.8-7.8); NEUTROPHILS % (AUTO) 62 % (42-75); PLATELET COUNT 129 10^3/uL (130-400); WHITE BLOOD COUNT 5.4 10^3/uL (4.3-11.0)
[2020-05-20 06:20] LABS: ALBUMIN 3.2 GM/DL (3.2-4.5)
[2020-05-20 06:21] LABS: POTASSIUM 3.7 MMOL/L (3.6-5.0)
[2020-05-20 06:22] LABS: CALCIUM 8.4 MG/DL (8.5-10.1)
[2020-05-20 06:23] LABS: TOTAL PROTEIN 5.9 GM/DL (6.4-8.2)
[2020-05-20 06:25] LABS: BILIRUBIN,TOTAL 0.5 MG/DL (0.1-1.0)
[2020-05-20 06:26] LABS: CREATININE SERUM 1.89 MG/DL (0.60-1.30)
[2020-05-20] MEDS ORDERED: LEVOTHYROXINE 125 MCG (LEVOTHROID) TABLET PO SCH (06:30)
[2020-05-20 08:00] VITALS: BP 105/66
[2020-05-20] MEDS: inSUlin NPH (NovoLIN N) 1 UNIT/0.01 ML (CHARGE PER UNIT) SQ SCH (08:49)
[2020-05-20] MEDS: PANTOPRAZOLE 40 MG (PROTONIX) TAB PO SCH (08:49)
[2020-05-20] MEDS: RIFAXIMIN 550 MG TABLET (XIFAXAN) PO SCH (08:49)
[2020-05-20] MEDS: MAGNESIUM OXIDE (MAG-OX)400 MG TAB PO SCH (08:49)
[2020-05-20] MEDS: inSUlin ASPART (NovoLOG) 1 UNIT/0.01 ML (CHARGE PER UNIT) SC SCH (08:50)
[2020-05-20] MEDS ORDERED: BUMETANIDE 1 MG (BUMEX) TAB PO SCH (09:00)
[2020-05-20] MEDS ORDERED: LACT20SO2 PO (11:12)
[2020-05-20] MEDS ORDERED: RIFA550T PO (11:12)
--- NOTE | 2020-05-20 11:19 | Discharge Summary ---
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 Gastric antral vascular ectasia Discharge Summary Discharge Physical Exam Allergies: Coded Allergies: Tlheekf-Dhp-Wgn Reductase Inhibitor (Verified Allergy, Intermediate, GI UPSET, N/V, 05/18/20) cefadroxil (Verified Allergy, Mild, 05/18/20) Sulfa (Sulfonamide Antibiotics) (Verified Allergy, Unknown, 05/18/20) oxycodone (Verified Allergy, Unknown, 05/18/20) "makes skin crawl" Vitals & I&Os Vital Signs Date Time Temp Pulse Resp B/P (MAP) Pulse Ox O2 Delivery O2 Flow Rate FiO2 05/20/20 08:00 36.9 75 20 105/66 (79) 93 Room Air General Appearance: No Apparent Distress, WD/WN HEENT: Normal ENT Inspection, Other (Right cheek lesion suspicious for a basal cell or vascular lesion) Respiratory: Lungs Clear, Normal Breath Sounds, No Accessory Muscle Use, No Respiratory Distress Cardiovascular: Regular Rate, Rhythm, No Gallop, No Murmur, Normal Peripheral Pulses Gastrointestinal: Normal Bowel Sounds, Non Tender, Soft Extremity: Normal Capillary Refill, Non Tender, No Calf Tenderness Skin: Warm/Dry, Pallor Neurologic/Psychiatric: Alert, Oriented x3, No Motor/Sensory Deficits, Normal Mood/Affect Hospital Course Was the Problem List Reviewed?: Yes Patient was admitted and placed on her lactulose in addition to her other medications. She was gently hydrated to improve her renal insufficiency. At the time of discharge she is much more lucid has had some diarrhea secondary to lactulose but is stronger and asking to go home. Ammonia level is at 70 at the time of discharge. Labs are improved with a BUN of 27 and creatinine 1.89 and hemoglobin has remained stable at 8.1.. Labs (last 24 hrs) Laboratory Tests 05/19/20 15:56: Glucometer 214H 05/19/20 21:16: Glucometer 191H 05/20/20 05:53: White Blood Count 5.4, Red Blood Count 2.53L, Hemoglobin 8.1L, Hematocrit 25L, Mean Corpuscular Volume 100H, Mean Corpuscular Hemoglobin 32, Mean Corpuscular Hemoglobin Concent 32, Red Cell Distribution Width 15.1H, Platelet Count 129L, Mean Platelet Volume 10.3, Immature Granulocyte % (Auto) 0, Neutrophils (%) (Auto) 62, Lymphocytes (%) (Auto) 19, Monocytes (%) (Auto) 10, Eosinophils (%) (Auto) 8, Basophils (%) (Auto) 1, Neutrophils # (Auto) 3.4, Lymphocytes # (Auto) 1.0, Monocytes # (Auto) 0.6, Eosinophils # (Auto) 0.4H, Basophils # (Auto) 0.0, Immature Granulocyte # (Auto) 0.0, Sodium Level 140, Potassium Level 3.7, Chloride Level 111H, Carbon Dioxide Level 20L, Anion Gap 9, Blood Urea Nitrogen 27H, Creatinine 1.89H, Estimat Glomerular Filtration Rate 27, BUN/Creatinine Ratio 14, Glucose Level 177H, Calcium Level 8.4L, Corrected Calcium 9.0, Total Bilirubin 0.5, Aspartate Amino Transf (AST/SGOT) 14, Alanine Aminotransferase (ALT/SGPT) 8, Alkaline Phosphatase 67, Ammonia 73H, Total Protein 5.9L, Albumin 3.2 Patient resulted labs reviewed. Pending Labs Laboratory Tests 05/20/20 05:53: White Blood Count 5.4, Red Blood Count 2.53, Hemoglobin 8.1, Hematocrit 25, Mean Corpuscular Volume 100, Mean Corpuscular Hemoglobin 32, Mean Corpuscular Hemogl obin Concent 32, Red Cell Distribution Width 15.1, Platelet Count 129, Mean Platelet Volume 10.3, Immature Granulocyte % (Auto) 0, Neutrophils (%) (Auto) 62, Lymphocytes (%) (Auto) 19, Monocytes (%) (Auto) 10, Eosinophils (%) (Auto) 8, Basophils (%) (Auto) 1, Neutrophils # (Auto) 3.4, Lymphocytes # (Auto) 1.0, Monocytes # (Auto) 0.6, Eosinophils # (Auto) 0.4, Basophils # (Auto) 0.0, Immature Granulocyte # (Auto) 0.0, Sodium Level 140, Potassium Level 3.7, Chloride Level 111, Carbon Dioxide Level 20, Anion Gap 9, Blood Urea Nitrogen 27, Creatinine 1.89, Estimat Glomerular Filtration Rate 27, BUN/Creatinine Ratio 14, Glucose Level 177, Calcium Level 8.4, Corrected Calcium 9.0, Total Bilirubin 0.5, Aspartate Amino Transf (AST/SGOT) 14, Alanine Aminotransferase (ALT/SGPT) 8, Alkaline Phosphatase 67, Ammonia 73, Total Protein 5.9, Albumin 3.2 Discussion & Recommendations Discharge Planning: >30 minutes discharge planning Discharge Home Medications: Active Scripts Active Lactulose 20 Gm/30 Ml Solution 20 Gm PO BID 30 Days Xifaxan (Rifaximin) 550 Mg Tablet 550 Mg PO BID 30 Days Reported [Folic Acid] 1 Mg PO DAILY LAST FILLED 09-11-2019 #30 Levothyroxine Sodium 125 Mcg Tablet 125 Mcg PO DAILY LAST FILLED 09-06-2019 #30 Promethazine Tablet (Promethazine HCl) 25 Mg Tablet 12.5 Mg PO Q12H PRN Metoclopramide HCl 10 Mg Tablet 10 Mg PO BIDAC PRN Metolazone 5 Mg Tablet 5 Mg PO SUN,CARLENE PRN Bumetanide 1 Mg Tablet 1 Mg PO DAILY PRN MAY TAKE AN ADDITIONAL DOSE IF NEEDED Tizanidine HCl 2 Mg Tablet 2 Mg PO TID PRN Glucosamine & Chondroitin Cap (Glucosa Horne 2Kcl/Chondroitin Horne) 1 Each Capsule 1 Cap PO BID Novolog Flexpen (Insulin Aspart) 300 Units/3 Ml Solution 8 Units SQ AC Bumetanide 1 Mg Tablet 1 Mg PO DAILY Tramadol HCl 50 Mg Tablet 50 Mg PO TID PRN Magox 400 (Magnesium Oxide) 400 Mg Tablet 400 Mg PO BID Nitrostat (Nitroglycerin) 0.4 Mg Tab.subl 0.4 Mg SL UD PRN Novolin N (Insulin NPH Human Isophane) 100 Unit/1 Ml Vial SQ AC LAST FILLED 09-05-2019 #10 VIALS SLIDING SCALE A Zyrtec (Cetirizine HCl) 10 Mg Tablet 10 Mg PO DAILY Omeprazole 40 Mg Capsule.dr 40 Mg PO BID Condition at discharge Stable and improved Instructions to patient/family Please see electronic discharge instructions given to patient. Clinical Quality Measures DVT/VTE Risk/Contraindication: Risk Factor Score Per Nursin RFS Level Per Nursing on Admit: 4+=Very High Other: GAVE DISEASE AND CHRONIC ANEMIA SUMAN GR MD May 20, 2020 11:19
[2020-05-20 12:30] VITALS: BP 105/66
== END 2020-05-20 12:30 | disposition home or self-care (01) | DRG 442 ==
LOC: EDUNIT# 15:33 → ER 15:34 → 4TH 17:32 → OBSVTOIN 05-19 13:02 → 4TH 05-19 13:39
PROVIDERS: ADMIT Internal Medicine; ATTEND Internal Medicine
DX: K72.90 Hepatic failure, unspecified without coma (principal); N18.4 Chronic kidney disease, stage 4 (severe); I48.91 Unspecified atrial fibrillation; I25.10 Atherosclerotic heart disease of native coronary artery without angina pectoris; I25.2 Old myocardial infarction; K21.9 Gastro-esophageal reflux disease without esophagitis; K31.819 Angiodysplasia of stomach and duodenum without bleeding; M19.90 Unspecified osteoarthritis, unspecified site; G89.29 Other chronic pain; M54.9 Dorsalgia, unspecified; F41.9 Anxiety disorder, unspecified; R32 Unspecified urinary incontinence; D64.9 Anemia, unspecified; K74.60 Unspecified cirrhosis of liver; E11.22 Type 2 diabetes mellitus with diabetic chronic kidney disease; Z79.4 Long term (current) use of insulin; Z88.2 Allergy status to sulfonamides; Z88.5 Allergy status to narcotic agent; Z87.891 Personal history of nicotine dependence; Z95.1 Presence of aortocoronary bypass graft; Z95.5 Presence of coronary angioplasty implant and graft
CPT/HCPCS: 36415; 80053; 81000; 82140; 82962; 84439; 84443; 85025; 85610; 86141; 87088; G0378

== ENCOUNTER 2020-05-25 13:34 | Outpatient (RCR) | payer MEDICARE ==
[2020-04-26 13:43] LABS: BASOPHILS % (AUTO) 1 % (0-10); EOSINOPHILS # (AUTO) 0.6 10^3/uL (0.0-0.3); EOSINOPHILS % (AUTO) 14 % (0-10); HEMATOCRIT 29 % (35-52); HEMOGLOBIN 9.3 g/dL (11.5-16.0); LYMPHOCYTES # (AUTO) 0.8 10^3/uL (1.0-4.0); LYMPHOCYTES % (AUTO) 17 % (12-44); MEAN CORPUSCULAR HEMOGLOBIN 30 pg (25-34); MEAN CORPUSCULAR HGB CONC 32 g/dL (32-36); MEAN CORPUSCULAR VOLUME 93 fL (80-99); MEAN PLATELET VOLUME 10.4 fL (9.0-12.2); MONOCYTES # (AUTO) 0.5 10^3/uL (0.0-1.0); MONOCYTES % (AUTO) 11 % (0-12); NEUTROPHILS # (AUTO) 2.6 10^3/uL (1.8-7.8); NEUTROPHILS % (AUTO) 58 % (42-75); PLATELET COUNT 169 10^3/uL (130-400); WHITE BLOOD COUNT 4.4 10^3/uL (4.3-11.0)
[2020-05-09 13:26] LABS: BASOPHILS % (AUTO) 1 % (0-10); EOSINOPHILS # (AUTO) 0.5 10^3/uL (0.0-0.3); EOSINOPHILS % (AUTO) 9 % (0-10); HEMATOCRIT 29 % (35-52); HEMOGLOBIN 9.3 g/dL (11.5-16.0); LYMPHOCYTES # (AUTO) 0.8 10^3/uL (1.0-4.0); LYMPHOCYTES % (AUTO) 16 % (12-44); MEAN CORPUSCULAR HEMOGLOBIN 31 pg (25-34); MEAN CORPUSCULAR HGB CONC 32 g/dL (32-36); MEAN CORPUSCULAR VOLUME 95 fL (80-99); MEAN PLATELET VOLUME 10.5 fL (9.0-12.2); MONOCYTES # (AUTO) 0.5 10^3/uL (0.0-1.0); MONOCYTES % (AUTO) 10 % (0-12); NEUTROPHILS # (AUTO) 3.2 10^3/uL (1.8-7.8); NEUTROPHILS % (AUTO) 64 % (42-75); PLATELET COUNT 161 10^3/uL (130-400)
[~2020-05-25 13:34] MED LIST changes: +CYANOCOBALAMIN INJ 1000 MCG/ML (CANCER CENTER) ONE; +DARBEPOETIN 40 MCG/ML (ARANESP) 1 ML VIAL SC SCH; +FERRIC CARBOXYMALTOSE (CANCER) 750 MG in NS (IVPB) CANCER CENTER 250 ML IV SCH; +LACT20SO2 PO; +RIFA550T PO
[2020-05-25 14:01] LABS: BASOPHILS # (AUTO) 0.1 10^3/uL (0.0-0.1); BASOPHILS % (AUTO) 1 % (0-10); EOSINOPHILS # (AUTO) 0.5 10^3/uL (0.0-0.3); EOSINOPHILS % (AUTO) 9 % (0-10); HEMATOCRIT 30 % (35-52); HEMOGLOBIN 9.5 g/dL (11.5-16.0); LYMPHOCYTES % (AUTO) 18 % (12-44); MEAN CORPUSCULAR HEMOGLOBIN 32 pg (25-34); MEAN CORPUSCULAR HGB CONC 32 g/dL (32-36); MEAN CORPUSCULAR VOLUME 98 fL (80-99); MEAN PLATELET VOLUME 10.5 fL (9.0-12.2); MONOCYTES # (AUTO) 0.5 10^3/uL (0.0-1.0); MONOCYTES % (AUTO) 9 % (0-12); NEUTROPHILS # (AUTO) 3.6 10^3/uL (1.8-7.8); NEUTROPHILS % (AUTO) 64 % (42-75); PLATELET COUNT 177 10^3/uL (130-400); WHITE BLOOD COUNT 5.6 10^3/uL (4.3-11.0)
[2020-06-14] MEDS ORDERED: ONDA-105 PO (17:26)
[2020-06-14] MEDS ORDERED: NF-RIFA200 PO (17:26)
[2020-06-14] MEDS ORDERED: CLOB10TA3 PO (17:26)
[2020-06-14] MEDS ORDERED: TOPI50TA13 PO (17:26)
[2020-06-14] MEDS ORDERED: INSN1U SQ (17:28)
[2020-06-18] MEDS ORDERED: FOLI1TAB24 PO (10:58)
[2020-06-18] MEDS ORDERED: OMEP40CA27 PO (10:59)
[2020-06-18] MEDS ORDERED: LEVO125C4 PO (10:59)
[2020-06-18] MEDS ORDERED: NITR-65 PO (10:59)
[2020-06-18] MEDS ORDERED: ERGO50006 PO (11:02)
[2020-06-18] MEDS ORDERED: LACT20SO2 PO (11:03)
== END 2020-06-18 15:58 | disposition home or self-care (01) ==
LOC: ONC 13:34
PROVIDERS: ATTEND Internal Medicine Hematology & Oncology
DX: E11.22 Type 2 diabetes mellitus with diabetic chronic kidney disease (principal); I13.0 Hypertensive heart and chronic kidney disease with heart failure and stage 1 through stage 4 chronic kidney disease, or unspecified chronic kidney disease; N18.4 Chronic kidney disease, stage 4 (severe); D63.1 Anemia in chronic kidney disease; E53.8 Deficiency of other specified B group vitamins; D50.9 Iron deficiency anemia, unspecified; I25.10 Atherosclerotic heart disease of native coronary artery without angina pectoris; E03.9 Hypothyroidism, unspecified; K29.51 Unspecified chronic gastritis with bleeding; I48.91 Unspecified atrial fibrillation; K74.60 Unspecified cirrhosis of liver; I50.30 Unspecified diastolic (congestive) heart failure; K64.9 Unspecified hemorrhoids; K44.9 Diaphragmatic hernia without obstruction or gangrene; E78.5 Hyperlipidemia, unspecified; E66.9 Obesity, unspecified; M19.90 Unspecified osteoarthritis, unspecified site; I47.1 Supraventricular tachycardia; K63.5 Polyp of colon; K31.811 Angiodysplasia of stomach and duodenum with bleeding; Z79.899 Other long term (current) drug therapy; Z80.0 Family history of malignant neoplasm of digestive organs; Z68.33 Body mass index [BMI] 33.0-33.9, adult
CPT/HCPCS: 36591; 85025; 96365; 96372

== ENCOUNTER 2020-06-08 18:13 | Emergency (ER) | payer MEDICARE ==
[~2020-06-08] VITALS: Ht 162 cm; Wt 94.0 kg
[~2020-06-08 18:13] MED LIST changes: -CYANOCOBALAMIN INJ 1000 MCG/ML (CANCER CENTER) ONE; -DARBEPOETIN 40 MCG/ML (ARANESP) 1 ML VIAL SC SCH; -FERRIC CARBOXYMALTOSE (CANCER) 750 MG in NS (IVPB) CANCER CENTER 250 ML IV SCH
--- NOTE | 2020-06-08 18:38 | ED GI ---
General Chief Complaint: Abdominal/GI Problems Stated Complaint: UNABLE TO HAVE BOWEL MOVEMENT Nursing Triage Note: PT STATES SHE HAS NOT HAD A BM FOR 4 DAYS, STATES HAVING A BLEED IN HER STOMACH Sepsis Screen: No Definite Risk Source of Information: Patient Exam Limitations: No Limitations History of Present Illness Date Seen by Provider: Jun 08, 2020 Time Seen by Provider: 18:36 Initial Comments To ER by private vehicle with suprapubic abdominal pain as well as intermittent rectal pain and no bowel movement for 4 days. This is unusual for her. No fevers or chills. Timing/Duration: 3-4 Days Severity/Quality: Cramping Location: Suprapubic Radiation: No Radiation Activities at Onset: None Allergies and Home Medications Allergies Coded Allergies: Xopdfjm-Ajn-Hya Reductase Inhibitor (Verified Allergy, Intermediate, GI UPSET, N/V, 05/18/20) cefadroxil (Verified Allergy, Mild, 05/18/20) Sulfa (Sulfonamide Antibiotics) (Verified Allergy, Unknown, 05/18/20) oxycodone (Verified Allergy, Unknown, 05/18/20) "makes skin crawl" Home Medications Bumetanide 1 Mg Tablet, 1 MG PO DAILY, (Reported) Bumetanide 1 Mg Tablet, 1 MG PO DAILY PRN for SWELLING, (Reported) MAY TAKE AN ADDITIONAL DOSE IF NEEDED Cetirizine HCl 10 Mg Tablet, 10 MG PO DAILY, (Reported) Glucosa Horne 2Kcl/Chondroitin Horne 1 Each Capsule, 1 CAP PO BID, (Reported) Insulin Aspart 300 Units/3 Ml Solution, 8 UNITS SQ AC, (Reported) Insulin NPH Human Isophane 100 Unit/1 Ml Vial, SQ AC, (Reported) LAST FILLED 09-05-2019 #10 VIALS SLIDING SCALE A Lactulose 20 Gm/30 Ml Solution, 20 GM PO BID Prescribed by: SUMAN GR on 05/20/20 1112 Levothyroxine Sodium 125 Mcg Tablet, 125 MCG PO DAILY, (Reported) LAST FILLED 09-06-2019 #30 Magnesium Oxide 400 Mg Tablet, 400 MG PO BID, (Reported) Metoclopramide HCl 10 Mg Tablet, 10 MG PO BIDAC PRN for STOMACH UPSET, (Reported) Metolazone 5 Mg Tablet, 5 MG PO SUN,CARLENE PRN for WEIGHT>195, (Reported) Nitroglycerin 0.4 Mg Tab.subl, 0.4 MG SL UD PRN for CHEST PAIN, (Reported) Omeprazole 40 Mg Capsule.dr, 40 MG PO BID, (Reported) Promethazine HCl 25 Mg Tablet, 12.5 MG PO Q12H PRN for NAUSEA/VOMITING-2ND LINE, (Reported) Rifaximin 550 Mg Tablet, 550 MG PO BID Prescribed by: SUMAN GR on 05/20/20 1112 Tizanidine HCl 2 Mg Tablet, 2 MG PO TID PRN for MUSCLE SPASMS, (Reported) Tramadol HCl 50 Mg Tablet, 50 MG PO TID PRN for PAIN-MODERATE, (Reported) [Folic Acid] , 1 MG PO DAILY, (Reported) LAST FILLED 09-11-2019 #30 Patient Home Medication List Home Medication List Reviewed: Yes Review of Systems Review of Systems Constitutional: see HPI EENTM: No Symptoms Reported Respiratory: No Symptoms Reported Cardiovascular: No Symptoms Reported Gastrointestinal: See HPI, Abdominal Pain, Constipated Genitourinary: No Symptoms Reported Musculoskeletal: no symptoms reported Skin: no symptoms reported Psychiatric/Neurological: No Symptoms Reported Endocrine: No Symptoms Reported Hematologic/Lymphatic: No Symptoms Reported Past Nlxfnbh-Rdsywj-Qoafkj Hx Patient Social History Type Used: Cigarettes Former Smoker, Quit: May 20, 1980 2nd Hand Smoke Exposure: No Recent Foreign Travel: No Contact w/Someone Who Travel: No Recent Infectious Disease Expo: No Recent Hopitalizations: No Immunizations Up To Date Tetanus Booster (TDap): Unknown PED Vaccines UTD: Yes Date of Pneumonia Vaccine: May 16, 2019 Date of Influenza Vaccine: Apr 18, 2020 Seasonal Allergies Seasonal Allergies: Yes Past Medical History Surgeries: Yes Adenoidectomy, Cardiac, CABG, Coronary Stent, Open Heart Surgery, Orthopedic, Tonsillectomy, Tubal Ligation Respiratory: Yes (LEFT PLEURAL EFFUSION-S/P THORACENTESIS) Pneumonia, Sleep Apnea Currently Using CPAP: No Currently Using BIPAP: No Cardiac: Yes (CHF, STENT X1; CABG 02/16/2018 x 4 @ [facility];NSTEMI X 3) Atrial Fibrillation, Chronic Edema/Swelling, Coronary Artery Disease, Heart Attack, High Cholesterol, Hypertension Neurological: Yes (CHRONIC BASELINE CONFUSION) Dementia Reproductive Disorders: No Female Reproductive Disorders: Denies 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 LIVER DZ/ELEV AMMONIA) Gastroesophageal Reflux, Liver Disease/Jaundice, Gastrointestinal Bleed, Diverticulosis, Hemorrhoids, Polyps Musculoskeletal: Yes (POOR AMBULATION--USES WALKER SINCE CABG; L ANKLE AND KNEE SURGERIES) Degenerate Disk Disease, Arthritis, Chronic Back Pain, Fractures Endocrine: Yes (OBESITY) Diabetes, Insulin dep, Hypothyroidsim HEENT: No Loss of Vision: Denies Hearing Impairment: Denies Cancer: No Psychosocial: Yes Anxiety Integumentary: Yes Psoriasis Blood Disorders: Yes (CHRONIC ANEMIA-GI LOSS/GAVE SYNDROME; MULT TRANSFUSIONS/MULT ANTIBODIES) Adverse Reaction/Blood Tranf: Yes (Antibody JKA) Family Medical History Arthritis G8 BROTHER Completed stroke 19 MOTHER FH: anemia 19 MOTHER FH: lupus G8 SISTER FH: throat cancer 19 FATHER Hypertension G8 SISTER Myocardial infarction 19 MOTHER Thyroid disease 19 MOTHER G8 SISTER Hypertension, Stroke, Other Conditions/Hx PSH: -LEFT ANKLE SURGERY -LEFT KNEE SURGERY -CARDIAC CATHS--STENT X 1 -4 VESSEL CABG AT [facility] 02/16/18 -THORACENTESIS -TONSILLECTOMY/ADENOIDECTOMY -BTL Physical Exam Vital Signs Vital Signs - First Documented 06/08/20 18:30 Temp 37.0 Pulse 86 Resp 20 B/P (MAP) 141/68 (92) Pulse Ox 97 O2 Delivery Room Air Capillary Refill : Less Than 3 Seconds Height/Weight/BMI Height: 5'4.00" Weight: 196lbs. 5.0oz. [id number]; 35.00 BMI Method:Stated General Appearance: WD/WN, no apparent distress Neck: non-tender, full range of motion Respiratory: lungs clear, normal breath sounds, no respiratory distress, no accessory muscle use Cardiovascular: regular rate, rhythm, no murmur Gastrointestinal: normal bowel sounds, soft, tenderness Extremities: normal range of motion Neurologic/Psychiatric: alert Skin: normal color, warm/dry Procedures/Interventions Date of ETT Placement: May 30, 2018 Time of ETT Placement: 1330 Progress/Results/Core Measures Results/Orders Lab Results Laboratory Tests Test 06/08/20 18:45 Range/Units White Blood Count 5.3 4.3-11.0 10^3/uL Red Blood Count 2.95 L 3.80-5.11 10^6/uL Hemoglobin 9.4 L 11.5-16.0 g/dL Hematocrit 28 L 35-52 % Mean Corpuscular Volume 95 80-99 fL Mean Corpuscular Hemoglobin 32 25-34 pg Mean Corpuscular Hemoglobin Concent 34 32-36 g/dL Red Cell Distribution Width 13.7 10.0-14.5 % Platelet Count 149 130-400 10^3/uL Mean Platelet Volume 10.6 9.0-12.2 fL Immature Granulocyte % (Auto) 0 % Neutrophils (%) (Auto) 66 42-75 % Lymphocytes (%) (Auto) 14 12-44 % Monocytes (%) (Auto) 10 0-12 % Eosinophils (%) (Auto) 9 0-10 % Basophils (%) (Auto) 1 0-10 % Neutrophils # (Auto) 3.5 1.8-7.8 10^3/uL Lymphocytes # (Auto) 0.8 L 1.0-4.0 10^3/uL Monocytes # (Auto) 0.5 0.0-1.0 10^3/uL Eosinophils # (Auto) 0.5 H 0.0-0.3 10^3/uL Basophils # (Auto) 0.0 0.0-0.1 10^3/uL Immature Granulocyte # (Auto) 0.0 0.0-0.1 10^3/uL Sodium Level 141 135-145 MMOL/L Potassium Level 3.3 L 3.6-5.0 MMOL/L Chloride Level 105 98-107 MMOL/L Carbon Dioxide Level 24 21-32 MMOL/L Anion Gap 12 5-14 MMOL/L Blood Urea Nitrogen 28 H 7-18 MG/DL Creatinine 2.07 H 0.60-1.30 MG/DL Estimat Glomerular Filtration Rate 24 BUN/Creatinine Ratio 14 Glucose Level 212 H 70-105 MG/DL Calcium Level 8.6 8.5-10.1 MG/DL Corrected Calcium 8.9 8.5-10.1 MG/DL Total Bilirubin 0.5 0.1-1.0 MG/DL Aspartate Amino Transf (AST/SGOT) 12 5-34 U/L Alanine Aminotransferase (ALT/SGPT) 9 0-55 U/L Alkaline Phosphatase 76 40-136 U/L Total Protein 6.8 6.4-8.2 GM/DL Albumin 3.6 3.2-4.5 GM/DL My Orders Orders - FATIMA,PETER J 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 Cbc With Automated Diff (06/08/20 18:35) Comprehensive Metabolic Panel (06/08/20 18:35) Ct Abdomen/Pelvis Wo (06/08/20 18:35) Na Phos/Na Biphos Enema (Fleet Enema Vito (06/08/20 19:45) Medications Given in ED Current Medications Medications Dose Ordered Sig/Roberth Route Start Time Stop Time Status Last Admin Dose Admin Sodium Biphosphate/ Sodium Phosphate 1 ea ONCE ONCE TX 06/08/20 19:45 06/08/20 19:46 DC 06/08/20 19:49 1 EA Vital Signs/I&O 06/08/20 18:30 Temp 37.0 Pulse 86 Resp 20 B/P (MAP) 141/68 (92) Pulse Ox 97 O2 Delivery Room Air Blood Pressure Mean: 92 Departure Communication (Admissions) 2012-large bm after fleets enema Impression Primary Impression: Constipation Disposition: 01 HOME, SELF-CARE Condition: Stable Departure-Patient Inst. Decision time for Depature: 19:44 Referrals: JAMES TORRES MD (PCP/Family) Primary Care Physician Patient Instructions: Constipation, Adult (DC) MALLORIE FATIMA APRN Jun 08, 2020 18:37
[2020-06-08 18:51] LABS: BASOPHILS % (AUTO) 1 % (0-10); EOSINOPHILS # (AUTO) 0.5 10^3/uL (0.0-0.3); EOSINOPHILS % (AUTO) 9 % (0-10); HEMATOCRIT 28 % (35-52); HEMOGLOBIN 9.4 g/dL (11.5-16.0); LYMPHOCYTES # (AUTO) 0.8 10^3/uL (1.0-4.0); LYMPHOCYTES % (AUTO) 14 % (12-44); MEAN CORPUSCULAR HEMOGLOBIN 32 pg (25-34); MEAN CORPUSCULAR HGB CONC 34 g/dL (32-36); MEAN CORPUSCULAR VOLUME 95 fL (80-99); MEAN PLATELET VOLUME 10.6 fL (9.0-12.2); MONOCYTES # (AUTO) 0.5 10^3/uL (0.0-1.0); MONOCYTES % (AUTO) 10 % (0-12); NEUTROPHILS # (AUTO) 3.5 10^3/uL (1.8-7.8); NEUTROPHILS % (AUTO) 66 % (42-75); PLATELET COUNT 149 10^3/uL (130-400); WHITE BLOOD COUNT 5.3 10^3/uL (4.3-11.0)
[2020-06-08 18:59] LABS: ALBUMIN 3.6 GM/DL (3.2-4.5)
[2020-06-08 19:00] LABS: POTASSIUM 3.3 MMOL/L (3.6-5.0)
[2020-06-08 19:01] LABS: CALCIUM 8.6 MG/DL (8.5-10.1)
[2020-06-08 19:02] LABS: TOTAL PROTEIN 6.8 GM/DL (6.4-8.2)
[2020-06-08 19:04] LABS: BILIRUBIN,TOTAL 0.5 MG/DL (0.1-1.0)
[2020-06-08 19:06] LABS: CREATININE SERUM 2.07 MG/DL (0.60-1.30)
--- NOTE | 2020-06-08 19:09 | Diagnostic Imaging Report ---
EXAMINATION: CT abdomen and pelvis without contrast. TECHNIQUE: Multiple contiguous axial images were obtained through the abdomen and pelvis without the use of intravenous contrast. All CT scans use one or more of the following dose optimizing techniques: automated exposure control, MA and/or KvP adjustment based on patient size and exam type or iterative reconstruction. HISTORY: Constipation. COMPARISON: 12/21/2019. FINDINGS: Limited views of the lower thorax show mild left base atelectasis. Liver is cirrhotic. No focal liver lesion is seen. There is no biliary ductal dilation. Gallbladder is normal. Pancreas is normal. Spleen is normal. Adrenal glands are normal. The kidneys are normal. There is no hydronephrosis. Urinary bladder is normal. Visualized bowel is normal in caliber without obstruction or inflammation. No free fluid or air. No abdominal or pelvic lymphadenopathy. Aorta is normal in caliber without aneurysm. There are no suspicious osseus lesions. IMPRESSION: Cirrhotic liver, otherwise unremarkable exam. Dictated by: Dictated on workstation # [id number]
[2020-06-08] MEDS ORDERED: FLEET ENEMA ADULT 1 EA BTL PR ONE (19:45)
[2020-06-08 20:24] VITALS: BP 154/61
== END 2020-06-08 20:24 | disposition home or self-care (01) ==
LOC: EDUNIT# 18:13 → ER 18:16
DX: K59.00 Constipation, unspecified (principal); K21.9 Gastro-esophageal reflux disease without esophagitis; I25.2 Old myocardial infarction; E66.9 Obesity, unspecified; I11.0 Hypertensive heart disease with heart failure; I50.9 Heart failure, unspecified; E11.9 Type 2 diabetes mellitus without complications; Z82.49 Family history of ischemic heart disease and other diseases of the circulatory system; Z82.61 Family history of arthritis; Z80.2 Family history of malignant neoplasm of other respiratory and intrathoracic organs; Z95.5 Presence of coronary angioplasty implant and graft; Z95.1 Presence of aortocoronary bypass graft; Z68.35 Body mass index [BMI] 35.0-35.9, adult; Z87.891 Personal history of nicotine dependence; Z88.5 Allergy status to narcotic agent; Z88.2 Allergy status to sulfonamides; Z88.1 Allergy status to other antibiotic agents; Z88.8 Allergy status to other drugs, medicaments and biological substances; E03.9 Hypothyroidism, unspecified; Z79.890 Hormone replacement therapy; Z79.4 Long term (current) use of insulin
CPT/HCPCS: 36415; 74176; 80053; 85025

== ENCOUNTER 2020-06-13 19:27 | Inpatient (IN) | payer MEDICARE ==
[~2020-06-13] VITALS: Ht 162.6 cm; Wt 99.6 kg
[2020-06-13] MEDS ORDERED: NS IV 1000 ML 1,000 ML IV SCH (19:30)
--- NOTE | 2020-06-13 20:08 | ED General ---
General Stated Complaint: WEAKNESS Source of Information: Patient (VERY LIMITED HISTORIAN--VERY SLOW MENTATION AND APPEARS SOMEWHAT CONFUSED AND FREQUENTLY STOPS TALKING MID-SENTENCE. . ), Old Records (ALL PMH IS FROM OLD RECORDS) History of Present Illness Date Seen by Provider: Jun 13, 2020 Time Seen by Provider: 19:28 Initial Comments PT ARRIVES VIA EMS FROM HOME C/O GENERALIZED WEAKNESS--ONGOING PROBLEM, WORSE X 1 WEEK PER EMS. TOO WEAK TO STAND PT IS DIABETIC--ACCUCHECK 233 ON ARRIVAL HERE PT STATES SHE FELL ON GLORIA AND WAS SEEN HERE --ON REVIEW OF THAT RECORD, PT HAD ONLY COMPLAINED OF CONSTIPATION, WITH NO BM X 4 DAYS AND ABDOMINAL PAIN--NO ACUTE PROCESS NOTED, AND NO RX'S SENT HOME WITH PT. PT DID NOT MENTION ANY FALL AT THAT TIME. UNABLE TO OBTAIN ANY OTHER INFORMATION FROM PT PT WITH A MULTITUDE OF VISITS HERE FOR VARIOUS COMPLAINTS PT DOES HAVE CHRONIC LIVER FAILURE WITH MULTIPLE VISITS/ADMITS FOR ELEVATED AMMONIA LEVELS/HEPATIC ENCEPHALOPATHY--WAS ADMITTED HERE -05/20/20 FOR HEPATIC ENCEPHALOPATHY ADDITIONALLY, PT HAS CHRONIC BASELINE CONFUSION/DEMENTIA PCP: KARMEN-BLOSSOM, DR. TORRES/SURGERY AIDE MIREILLE SAMSON Allergies and Home Medications Allergies Coded Allergies: Jgbzyfz-Apw-Xws Reductase Inhibitor (Verified Allergy, Intermediate, GI UPSET, N/V, 05/18/20) cefadroxil (Verified Allergy, Mild, 05/18/20) Sulfa (Sulfonamide Antibiotics) (Verified Allergy, Unknown, 05/18/20) oxycodone (Verified Allergy, Unknown, 05/18/20) "makes skin crawl" Home Medications Bumetanide 1 Mg Tablet, 1 MG PO DAILY, (Reported) Bumetanide 1 Mg Tablet, 1 MG PO DAILY PRN for SWELLING, (Reported) MAY TAKE AN ADDITIONAL DOSE IF NEEDED Cetirizine HCl 10 Mg Tablet, 10 MG PO DAILY, (Reported) Glucosa Horne 2Kcl/Chondroitin Horne 1 Each Capsule, 1 CAP PO BID, (Reported) Insulin Aspart 300 Units/3 Ml Solution, 8 UNITS SQ AC, (Reported) Insulin NPH Human Isophane 100 Unit/1 Ml Vial, SQ AC, (Reported) LAST FILLED 09-05-2019 #10 VIALS SLIDING SCALE A Lactulose 20 Gm/30 Ml Solution, 20 GM PO BID Prescribed by: SUMAN GR on 05/20/20 1112 Levothyroxine Sodium 125 Mcg Tablet, 125 MCG PO DAILY, (Reported) LAST FILLED 09-06-2019 #30 Magnesium Oxide 400 Mg Tablet, 400 MG PO BID, (Reported) Metoclopramide HCl 10 Mg Tablet, 10 MG PO BIDAC PRN for STOMACH UPSET, (Reported) Metolazone 5 Mg Tablet, 5 MG PO SUN,CARLENE PRN for WEIGHT>195, (Reported) Nitroglycerin 0.4 Mg Tab.subl, 0.4 MG SL UD PRN for CHEST PAIN, (Reported) Omeprazole 40 Mg Capsule.dr, 40 MG PO BID, (Reported) Promethazine HCl 25 Mg Tablet, 12.5 MG PO Q12H PRN for NAUSEA/VOMITING-2ND LINE, (Reported) Rifaximin 550 Mg Tablet, 550 MG PO BID Prescribed by: SUMAN GR on 05/20/20 1112 Tizanidine HCl 2 Mg Tablet, 2 MG PO TID PRN for MUSCLE SPASMS, (Reported) Tramadol HCl 50 Mg Tablet, 50 MG PO TID PRN for PAIN-MODERATE, (Reported) [Folic Acid] , 1 MG PO DAILY, (Reported) LAST FILLED 09-11-2019 #30 Patient Home Medication List Home Medication List Reviewed: Yes Review of Systems Review of Systems Constitutional: see HPI, weakness Musculoskeletal: other (STATES HER WHOLE LEFT SIDE HURTS AFTER SHE FELL ON GLORIA) Psychiatric/Neurological: See HPI Past Bnvdsrm-Gixglo-Syyukq Hx Past Med/Social Hx: Reviewed and Corrections made Patient Social History Alcohol Use: Denies Use Recreational Drug Use: No Smoking Status: Former Smoker Type Used: Cigarettes Former Smoker, Quit: May 20, 1980 2nd Hand Smoke Exposure: No Recent Hopitalizations: Yes (FOR PORT PLACEMENT) Immunizations Up To Date Tetanus Booster (TDap): Unknown PED Vaccines UTD: Yes Date of Pneumonia Vaccine: May 16, 2019 Date of Influenza Vaccine: Apr 18, 2020 Seasonal Allergies Seasonal Allergies: Yes Past Medical History Surgeries: Yes (PORT RIGHT CHEST) Adenoidectomy, Cardiac, CABG, Coronary Stent, Open Heart Surgery, Orthopedic, Tonsillectomy, Tubal Ligation Respiratory: Yes (LEFT PLEURAL EFFUSION-S/P THORACENTESIS; RESP FAILURE) Pneumonia, Sleep Apnea Currently Using CPAP: No Currently Using BIPAP: No Cardiac: Yes (CHF, STENT X1; CABG 02/16/2018 x 4 @ [facility];NSTEMI X 3) Atrial Fibrillation, Chronic Edema/Swelling, Coronary Artery Disease, Heart Attack, High Cholesterol, Hypertension Neurological: Yes (CHRONIC BASELINE CONFUSION;HEPATIC ENCEPHALOPATHY-MULT EPISO MOSES) Dementia Reproductive Disorders: No Female Reproductive Disorders: Denies [employer]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 LIVER DZ/ELEV AMMONIA) Gastroesophageal Reflux, Liver Disease/Jaundice, Gastrointestinal Bleed, Diverticulosis, Hemorrhoids, Polyps Musculoskeletal: Yes (POOR AMBULATION--USES WALKER SINCE CABG; L ANKLE AND KNEE SURGERIES) Degenerate Disk Disease, Arthritis, Chronic Back Pain, Fractures Endocrine: Yes (OBESITY) Diabetes, Insulin dep, Hypothyroidsim HEENT: No Loss of Vision: Denies Hearing Impairment: Denies Cancer: No Psychosocial: Yes Anxiety Integumentary: Yes Psoriasis Blood Disorders: Yes (CHRONIC ANEMIA-GI LOSS/GAVE SYNDROME; MULT TRANSFUSIONS/MULT ANTIBODIES) Adverse Reaction/Blood Tranf: Yes (Antibody JKA) Family Medical History Arthritis G8 BROTHER Completed stroke 19 MOTHER FH: anemia 19 MOTHER FH: lupus G8 SISTER FH: throat cancer 19 FATHER Hypertension G8 SISTER Myocardial infarction 19 MOTHER Thyroid disease 19 MOTHER G8 SISTER Hypertension, Stroke, Other Conditions/Hx PSH: -LEFT ANKLE SURGERY -LEFT KNEE SURGERY -CARDIAC CATHS--STENT X 1 -4 VESSEL CABG AT [facility] 02/16/18 -THORACENTESIS -TONSILLECTOMY/ADENOIDECTOMY -BTL -PORT RIGHT CHEST -LEXISCAN STRESS TEST 03/08/20--NORMAL. EF 70% Physical Exam Vital Signs Vital Signs - First Documented 06/13/20 06/14/20 20:33 01:05 Temp 36.5 Pulse 81 Resp 18 B/P (MAP) 148/87 (107) Pulse Ox 97 O2 Delivery Room Air Capillary Refill : Height, Weight, BMI Height: 5'4.00" Weight: 196lbs. 5.0oz. 89.956457jj; 35.00 BMI Method:Stated General Appearance: Other (LETHARGIC, VERY FLAT AFFECT, VERY SLOW MENTATION, SOMEWHAT CONFUSED. SPEECH CLEAR BUT SLOW. ) HEENT: PERRL/EOMI; No Photophobia, No Scleral Icterus (L), No Scleral Icterus (R); Other (ORAL MUCOSA MOIST) Neck: Normal Inspection, Non Tender Respiratory: Normal Breath Sounds, No Accessory Muscle Use, No Respiratory Distress, Other (DIFFUSE LEFT CHEST WALL TENDERNESS. NO CREPITANCE OR SUB Q AIR. PORT RIGHT CHEST. ) Cardiovascular: Regular Rate, Rhythm, No Edema, No JVD, No Murmur, Normal Peripheral Pulses Gastrointestinal: Soft, Tenderness, Other (DIFFUSE LEFT SIDED TENDERNESS. NO EXTERNAL EVIDENCE OF TRAUMA) Back: CVA Tenderness (L) Extremity: Normal Capillary Refill, Normal Range of Motion, No Calf Tenderness, No Pedal Edema, Other (DIFFUSE LEFT LEG TENDERNESS. NO EXTERNAL EVIDENCE OF TRAUMA. GROSS MOTOR/SENSORY/VASCULAR INTACT. ) Neurologic/Psychiatric: Other (AWAKE, VERY FLAT AFFECT, SOMEWHAT CONFUSED, VERY SLOW MENTATION AND OFTEN DOES NOT COMPLETE SENTENCE. SPEECH CLEAR. MOVES ALL EXTREMITIES AND STREGTH IS GROSSLY EQUAL IN ALL EXTREMITIES. ) Skin: Normal Color, Warm/Dry, Ecchymosis (OLD BRUISE TO LEFT FOREARM. NO OTHER EVIDENCE OF RECENT TRAUMA) Focused Exam Lactate Level 06/13/20 19:58: Lactic Acid Level 2.47*H Lactic Acid Level Procedures/Interventions Date of ETT Placement: May 30, 2018 Time of ETT Placement: 1330 Progress/Results/Core Measures Suspected Sepsis SIRS Temperature: Pulse: Respiratory Rate: Laboratory Tests 06/13/20 19:58: White Blood Count 5.1 Blood Pressure / Mean: 06/13/20 19:58: Lactic Acid Level 2.47*H Laboratory Tests 06/13/20 19:58: Creatinine 2.16H, INR Comment 1.1, Platelet Count 161, Total Bilirubin 0.4 Results/Orders Lab Results Laboratory Tests Test 06/13/20 19:49 06/13/20 19:58 06/13/20 20:00 06/13/20 20:15 Range/Units Glucometer 233 H 70-110 MG/DL White Blood Count 5.1 4.3-11.0 10^3/uL Red Blood Count 2.83 L 3.80-5.11 10^6/uL Hemoglobin 8.9 L 11.5-16.0 g/dL Hematocrit 27 L 35-52 % Mean Corpuscular Volume 96 80-99 fL Mean Corpuscular Hemoglobin 31 25-34 pg Mean Corpuscular Hemoglobin Concent 33 32-36 g/dL Red Cell Distribution Width 14.0 10.0-14.5 % Platelet Count 161 130-400 10^3/uL Mean Platelet Volume 10.9 9.0-12.2 fL Immature Granulocyte % (Auto) 0 % Neutrophils (%) (Auto) 67 42-75 % Lymphocytes (%) (Auto) 15 12-44 % Monocytes (%) (Auto) 10 0-12 % Eosinophils (%) (Auto) 7 0-10 % Basophils (%) (Auto) 1 0-10 % Neutrophils # (Auto) 3.4 1.8-7.8 10^3/uL Lymphocytes # (Auto) 0.8 L 1.0-4.0 10^3/uL Monocytes # (Auto) 0.5 0.0-1.0 10^3/uL Eosinophils # (Auto) 0.4 H 0.0-0.3 10^3/uL Basophils # (Auto) 0.0 0.0-0.1 10^3/uL Immature Granulocyte # (Auto) 0.0 0.0-0.1 10^3/uL Erythrocyte Sedimentation Rate 63 H 0-30 MM/HR Prothrombin Time 14.2 12.2-14.7 SEC INR Comment 1.1 0.8-1.4 Activated Partial Thromboplast Time 28 24-35 SEC D-Dimer 1.42 H 0.00-0.49 UG/ML Sodium Level 140 135-145 MMOL/L Potassium Level 3.5 L 3.6-5.0 MMOL/L Chloride Level 105 98-107 MMOL/L Carbon Dioxide Level 27 21-32 MMOL/L Anion Gap 8 5-14 MMOL/L Blood Urea Nitrogen 37 H 7-18 MG/DL Creatinine 2.16 H 0.60-1.30 MG/DL Estimat Glomerular Filtration Rate 23 BUN/Creatinine Ratio 17 Glucose Level 244 H 70-105 MG/DL Lactic Acid Level 2.47 *H 0.50-2.00 MMOL/L Calcium Level 9.2 8.5-10.1 MG/DL Corrected Calcium 9.5 8.5-10.1 MG/DL Magnesium Level 2.4 1.6-2.4 MG/DL Total Bilirubin 0.4 0.1-1.0 MG/DL Aspartate Amino Transf (AST/SGOT) 16 5-34 U/L Alanine Aminotransferase (ALT/SGPT) 11 0-55 U/L Alkaline Phosphatase 78 40-136 U/L Ammonia 75 H 11-32 UMOL/L Lactate Dehydrogenase 160 125-220 U/L Total Creatine Kinase 41 29-168 U/L Creatine Kinase MB 0.4 <6.6 NG/ML Myoglobin 104.3 H 10.0-92.0 NG/ML Troponin I < 0.028 <0.028 NG/ML C-Reactive Protein High Sensitivity 0.17 0.00-0.50 MG/DL Total Protein 6.8 6.4-8.2 GM/DL Albumin 3.6 3.2-4.5 GM/DL Amylase Level 52 25-125 U/L Lipase 39 8-78 U/L Procalcitonin 0.07 <0.10 NG/ML Free Thyroxine 1.04 0.70-1.48 NG/DL TSH [facility] Testing 0.22 L 0.35-4.94 UIU/ML Acetaminophen Level < 10 L 10-30 UG/ML Serum Alcohol < 10 <10 MG/DL Coronavirus 2019 (WILIAM) Negative Negative Blood Gas Puncture Site LFT RAD Blood Gas Patient Temperature 36.5 Arterial Blood pH 7.44 H 7.37-7.43 Arterial Blood Partial Pressure CO2 39 35-45 MMHG Arterial Blood Partial Pressure O2 69 L 79-93 MMHG Arterial Blood HCO3 26 23-27 MMOL/L Arterial Blood Total CO2 27.1 21.0-31.0 MMOL/L Arterial Blood Oxygen Saturation 94 94-100 % Arterial Blood Base Excess 2.0 -2.5-2.5 MMOL/L Osvaldo Test POS Blood Gas Ventilator Setting NO Blood Gas Inspired Oxygen ROOM AIR Urine Color YELLOW Urine Clarity CLEAR Urine pH 6.0 5-9 Urine Specific [place] 1.015 L 1.016-1.022 Urine Protein NEGATIVE NEGATIVE Urine Glucose (UA) NEGATIVE NEGATIVE Urine Ketones NEGATIVE NEGATIVE Urine Nitrite NEGATIVE NEGATIVE Urine Bilirubin NEGATIVE NEGATIVE Urine Urobilinogen 0.2 < = 1.0 MG/DL Urine Leukocyte Esterase NEGATIVE NEGATIVE Urine RBC (Auto) NEGATIVE NEGATIVE Urine RBC NONE /HPF Urine WBC NONE /HPF Urine Squamous Epithelial Cells 2-5 /HPF Urine Crystals NONE /LPF Urine Bacteria TRACE /HPF Urine Casts PRESENT /LPF Urine Hyaline Casts RARE /LPF Urine Mucus NEGATIVE /LPF Urine Culture Indicated NO Urine Opiates Screen NEGATIVE NEGATIVE Urine Oxycodone Screen NEGATIVE NEGATIVE Urine Methadone Screen NEGATIVE NEGATIVE Urine Propoxyphene Screen NEGATIVE NEGATIVE Urine Barbiturates Screen NEGATIVE NEGATIVE Ur Tricyclic Antidepressants Screen NEGATIVE NEGATIVE Urine Phencyclidine Screen NEGATIVE NEGATIVE Urine Amphetamines Screen NEGATIVE NEGATIVE Urine Methamphetamines Screen NEGATIVE NEGATIVE Urine Benzodiazepines Screen POSITIVE H NEGATIVE Urine Cocaine Screen NEGATIVE NEGATIVE Urine Cannabinoids Screen NEGATIVE NEGATIVE Micro Results Microbiology 06/13/20 Influenza Types A,B Antigen (CODIE) - Final, Complete My Orders Orders - JOSR GILLIS DO Accucheck Stat ONCE (06/13/20 19:28) Ed Iv/Invasive Line Start (06/13/20 19:28) Ekg Tracing (06/13/20:28) Catheter(Urinary) Insert & Ass 03,15 (06/13/20:) O2 (06/13/20:) Monitor-Rhythm Ecg Trace Only (06/13/20:) Acetaminophen (06/13/20:28) Alcohol (06/13/20:28) Ammonia (06/13/20:) Amylase (06/13/20:28) Cbc With Automated Diff (06/13/20:28) Comprehensive Metabolic Panel (06/13/20:28) Creatine Kinase (06/13/20:) Creatine Kinase Mb (06/13/20:28) Hs C Reactive Protein (06/13/20:) Erythrocyte Sedimentation Rate (06/13/20 19:28) Fibrin Degradation Products (06/13/20 19:28) Drug Screen Stat (Urine) (06/13/20 19:28) Lactic Acid Analyzer (06/13/20:28) Lipase (06/13/20:) Magnesium (06/13/20 19:28) Procalcitonin (Pct) (06/13/20:28) Protime With Inr (06/13/20:) Partial Thromboplastin Time (06/13/20 19:28) Thyroid Analyzer (06/13/20 19:28) Ua Culture If Indicated (06/13/20 19:28) Blood Culture (06/13/20 19:28) Influenza A And B Antigens (06/13/20 19:28) Myoglobin Serum (06/13/20 19:28) Troponin I (06/13/20 19:28) Ed Iv/Invasive Line Start (06/13/20 19:28) Ns Iv 1000 Ml (Sodium Chloride 0.9%) (06/13/20 19:30) LDH (06/13/20 19:28) Chest 1 View, Ap/Pa Only (06/13/20 19:28) Coronavirus Sars-Cov-2 So 2019 (06/13/20 19:28) Covid 19 Inhouse Test (06/13/20 19:28) Arterial Blood Gas (06/13/20 19:28) Ct Head/Cervical Spine Wo (06/13/20 19:55) Ct Thoracic/Lumbar Spine Wo (06/13/20 19:55) Femur, Left, 2 Views (06/13/20 19:55) Tibia/Fibula, Left, 2 Views (06/13/20 19:55) Pelvis With Left Hip 2-3 Views (06/13/20 19:55) Free T4 (Free Thyroxine) (06/13/20 19:58) Ct Chest/Abdomen/Pelvis Wo (06/13/20 19:55) Vital Signs/I&O 06/13/20 06/14/20 06/14/20 06/14/20 20:33 01:05 01:17 01:17 Temp 36.5 36.5 36.4 36.4 Pulse 81 74 77 77 Resp 18 17 20 20 B/P (MAP) 148/87 (107) 137/69 (107) 135/62 135/62 (86) Pulse Ox 97 96 97 97 O2 Delivery Room Air Room Air Room Air 06/14/20 01:39 O2 Delivery Room Air 06/14/20 00:00 Intake Total 1000 ml Balance 1000 ml Capillary Refill : Progress Note : Progress Note PLACED IN ISOLATION ROOM PPE WORN AT ALL TIMES COVID-19 TESTING PERFORMED RAPID COVID-19 TEST IS NEGATIVE, AND PT HAS NO SIGNS OF COVID-19 INFECTION AT THIS TIME. REMOVED FROM ISOLATION STATUS. ACCUCHECK 233 O2 SAT 95% ON ROOM AIR--IS SUPPOSED TO WEAR HOME O2, BUT DOES NOT GIVEN IV FLUIDS UNEVENTFUL ER STAY PT HAD NO COMPLAINTS DURING ER STAY ECG Initial ECG Impression Date: Jun 13, 2020 Initial ECG Impression Time: 19:28 Initial ECG Rate: 84 Initial ECG Rhythm: Normal Sinus Diagnostic Imaging Comments XRAYS--ALL PENDING RADIOLOGIST REVIEW: CXR--CHRONIC LUNG CHANGES, NO ACUTE PROCESS XRAYS PELVIS AND LEFT HIP-NO ACUTE PROCESS XRAYS LEFT FEMUR--NO ACUTE PROCESS XRAYS LEFT TIB-FIB--NO ACUTE PROCESS CT HEAD/CERVICAL SPINE--NO ACUTE PROCESS, PER [facility] VIA FAX AT [address] CT THORACIC/LUMBAR SPINE--NO ACUTE PROCESS, PER [facility] VIA FAX AT [address] CT CHEST/ABDOMEN/PELVIS--NO ACUTE PROCESS, CHRONIC CHANGES/STABLE-PER [facility] VIA FAX AT 2325 Reviewed: Reviewed by Me Departure Communication (Admissions) 0001--SPOKE WITH DR. GARCIA, ACCEPTS PT FOR ADMIT Impression Primary Impression: Hepatic encephalopathy Additional Impressions: Generalized weakness Insulin dependent diabetes mellitus Chronic anemia Thyroid disease CKD (chronic kidney disease) Disposition: ADMITTED INPATIENT Condition: Stable Admissions Decision to Admit Reason: Admit from ER (General) Decision to Admit/Date: Jun 14, 2020 Time/Decision to Admit Time: 00:05 Departure-Patient Inst. Referrals: JAMES TORRES MD (PCP/Family) Primary Care Physician JOSR GILLIS DO Jun 13, 2020 20:08
[2020-06-13 20:12] LABS: BASOPHILS % (AUTO) 1 % (0-10); EOSINOPHILS # (AUTO) 0.4 10^3/uL (0.0-0.3); EOSINOPHILS % (AUTO) 7 % (0-10); HEMATOCRIT 27 % (35-52); HEMOGLOBIN 8.9 g/dL (11.5-16.0); LYMPHOCYTES # (AUTO) 0.8 10^3/uL (1.0-4.0); LYMPHOCYTES % (AUTO) 15 % (12-44); MEAN CORPUSCULAR HEMOGLOBIN 31 pg (25-34); MEAN CORPUSCULAR HGB CONC 33 g/dL (32-36); MEAN CORPUSCULAR VOLUME 96 fL (80-99); MEAN PLATELET VOLUME 10.9 fL (9.0-12.2); MONOCYTES # (AUTO) 0.5 10^3/uL (0.0-1.0); MONOCYTES % (AUTO) 10 % (0-12); NEUTROPHILS # (AUTO) 3.4 10^3/uL (1.8-7.8); NEUTROPHILS % (AUTO) 67 % (42-75); PLATELET COUNT 161 10^3/uL (130-400); WHITE BLOOD COUNT 5.1 10^3/uL (4.3-11.0)
[2020-06-13 20:13] LABS: ABG OXYGEN SATURATION 94 % (94-100); ABG PCO2 39 MMHG (35-45); ABG PH 7.44 (7.37-7.43); ABG PO2 69 MMHG (79-93); ABG TCO2 27.1 MMOL/L (21.0-31.0)
[2020-06-13 20:19] LABS: ALLENS TEST POS; INSPIRED O2 ROOM AIR; PATIENT TEMP 36.5; VENTILATOR NO
[2020-06-13 20:30] LABS: ERYTHROCYTE SEDIMENTATION RATE 63 MM/HR (0-30)
[2020-06-13 20:31] LABS: ALBUMIN 3.6 GM/DL (3.2-4.5); CHLORIDE 105 MMOL/L (98-107); POTASSIUM 3.5 MMOL/L (3.6-5.0); SODIUM 140 MMOL/L (135-145)
[2020-06-13 20:32] LABS: CALCIUM 9.2 MG/DL (8.5-10.1)
[2020-06-13 20:33] LABS: AMYLASE 52 U/L (25-125)
[2020-06-13 20:34] LABS: AMMONIA 75 UMOL/L (11-32); FIBRIN DEGRADATION PRODUCTS 1.42 UG/ML (0.00-0.49); GLUCOSE 244 MG/DL (70-105); INR 1.1 (0.8-1.4); PROTHROMBIN TIME PATIENT 14.2 SEC (12.2-14.7); TOTAL PROTEIN 6.8 GM/DL (6.4-8.2)
[2020-06-13 20:35] LABS: BILIRUBIN,TOTAL 0.4 MG/DL (0.1-1.0); CARBON DIOXIDE 27 MMOL/L (21-32)
[2020-06-13 20:37] LABS: ALKALINE PHOSPHATASE 78 U/L (40-136); CREATININE SERUM 2.16 MG/DL (0.60-1.30); GFR ESTIMATED 23
[2020-06-13 20:38] LABS: BUN/CREATININE RATIO 17
[2020-06-13 20:40] LABS: ALANINE AMINOTRANSFERASE 11 U/L (0-55); MAGNESIUM 2.4 MG/DL (1.6-2.4)
[2020-06-13 20:41] LABS: LIPASE 39 U/L (8-78)
[2020-06-13 20:42] LABS: CREATINE KINASE 41 U/L (29-168)
[2020-06-13 20:48] LABS: BILIRUBIN,URINE NEGATIVE (NEGATIVE); CLARITY,URINE CLEAR; COLOR,URINE YELLOW; GLUCOSE, URINE (UA) NEGATIVE (NEGATIVE); KETONES,URINE NEGATIVE (NEGATIVE); LEUKOCYTE ESTERASE ,URINE NEGATIVE (NEGATIVE); NITRITE,URINE NEGATIVE (NEGATIVE); PROTEIN,URINE NEGATIVE (NEGATIVE)
[2020-06-13 20:49] LABS: CREATINE KINASE MB 0.4 NG/ML (<6.6)
[2020-06-13 20:55] LABS: BACTERIA,URINE TRACE /HPF; HYALINE CASTS, URINE RARE /LPF
[2020-06-13 20:59] LABS: AMPHETAMINE SCREEN, URINE NEGATIVE (NEGATIVE); BARBITURATE SCREEN URINE NEGATIVE (NEGATIVE); BENZODIAZEPINES SCREEN URINE POSITIVE (NEGATIVE); CANNABINOID SCREEN, URINE NEGATIVE (NEGATIVE); COCAINE SCREEN URINE NEGATIVE (NEGATIVE); METHADONE STAT NEGATIVE (NEGATIVE); METHAMPHETAMINE SCREEN URINE S NEGATIVE (NEGATIVE); OPIATE SCREEN URINE NEGATIVE (NEGATIVE); OXYCODONE STAT NEGATIVE (NEGATIVE); PROPOXYPHENE STAT NEGATIVE (NEGATIVE); TRICYCLIC ANTIDEPRESSANTS SCRE NEGATIVE (NEGATIVE)
[2020-06-13 21:02] LABS: TSH (THYROID ANALYZER) 0.22 UIU/ML (0.35-4.94)
[2020-06-13 21:21] LABS: ACETAMINOPHEN < 10 UG/ML (10-30)
[2020-06-13 21:37] LABS: FREE T4 (FREE THYROXINE) 1.04 NG/DL (0.70-1.48)
[2020-06-14 01:17] VITALS: BP 135/62
[2020-06-14] MEDS ORDERED: ENOXAPARIN 40 MG/0.4 ML (LOVENOX) SYR SC SCH (02:00)
[2020-06-14] MEDS ORDERED: ONDANSETRON 4 MG/2 ML (SDV) Z0FRAN IV PRN (02:00)
[2020-06-14] MEDS: LACTULOSE SYRUP 10GM/15ML (ENULOSE) 30ML UDC PO SCH ×4 (02:32→20:38)
[2020-06-14] MEDS: 1/2 NS IV SOLUTION 1,000 ML IV SCH ×2 (02:33→12:49)
[2020-06-14 03:52] VITALS: BP 131/68
--- NOTE | 2020-06-14 06:22 | Diagnostic Imaging Report ---
INDICATION: Weakness. COMPARISON: 03/13/2020. FINDINGS: Single view of the chest demonstrates increasing atelectasis and/or infiltrate in the left base. The right lung is clear. The heart is prominent without pulmonary edema. There is no pneumothorax. Port-A-Cath is stable. IMPRESSION: Increasing atelectasis and/or infiltrate left base. Follow-up recommended. Dictated by: Dictated on workstation # [id number]
--- NOTE | 2020-06-14 06:36 | Diagnostic Imaging Report ---
INDICATION: Fall, left leg injury, hip injury COMPARISON: None FINDINGS: Four views of the left femur demonstrate no fracture or dislocation. Articular surfaces are age-appropriate. No foreign body seen. No joint effusion. IMPRESSION: No fracture identified. Dictated by: Dictated on workstation # [id number]
[2020-06-14] MEDS: inSUlin ASPART (NovoLOG) 1 UNIT/0.01 ML (CHARGE PER UNIT) SC SCH ×4 (06:40→20:31)
--- NOTE | 2020-06-14 06:43 | Diagnostic Imaging Report ---
INDICATION: Left leg pain, fall. COMPARISON: None. FINDINGS: 4 views left tibia-fibula demonstrate no discernible fracture or dislocation. Articular surfaces are age-appropriate. No osseous lesion. IMPRESSION: No fracture identified. Dictated by: Dictated on workstation # [id number]
--- NOTE | 2020-06-14 06:43 | Diagnostic Imaging Report ---
INDICATION: Fall COMPARISON: None. FINDINGS: Single view pelvis, 2 views left tibia-fibula demonstrate no fracture or dislocation. Articular surfaces are age-appropriate. IMPRESSION: No fracture identified. Dictated by: Dictated on workstation # [id number]
--- NOTE | 2020-06-14 06:50 | Diagnostic Imaging Report ---
PROCEDURE: CT chest, abdomen, and pelvis without contrast. TECHNIQUE: Multiple contiguous axial images were obtained through the chest, abdomen, and pelvis without the use of intravenous contrast. Auto Exposure Controls were utilized during the CT exam to meet ALARA standards for radiation dose reduction. INDICATION: Chest pain trauma COMPARISON: None. FINDINGS: CT CHEST: The heart is enlarged with coronary artery disease. There has been prior median sternotomy. There is no pericardial effusion. There is atelectasis in the left base. No pneumothorax or effusion is seen. The thoracic spine, ribs and visualized shoulders are unremarkable. There is no fracture. IMPRESSION: Atelectasis left lung base otherwise no acute trauma identified. CT abdomen pelvis: Visualized solid organs are intact. There is atherosclerosis throughout the abdominal aorta without evidence of aneurysm. The course and caliber of the large and small bowel is grossly unremarkable. There is no obstruction or focal infiltrate process. The uterus is intact. Urinary bladder is decompressed with a Munoz catheter. Visualized lumbar spine, pelvis and hips are intact. There is no free air or free fluid. IMPRESSION: No acute trauma within the abdomen or pelvis. Agree with preliminary report Dictated by: Dictated on workstation # [id number]
--- NOTE | 2020-06-14 06:51 | Diagnostic Imaging Report ---
PROCEDURE: CT thoracic and lumbar spine without contrast. TECHNIQUE: Multiple contiguous axial images were obtained through the thoracic and lumbar spine without the use of intravenous contrast. Sagittal and coronal reformations were then performed. All CT scans use one or more of the following dose optimizing techniques: automated exposure control, MA and/or KvP adjustment based on a patient size and exam type, or iterative reconstruction. INDICATION: Back pain fall COMPARISON: None. FINDINGS: Alignment of the thoracic lumbar column is within normal limits. Chronic appearing fracture deformities are seen involving possibly L1. There is a noticeable height loss at L4 and L5. If patient is tender in these regions consider MRI. Otherwise these appear chronic in nature. There is no paraspinous mass. The central canal is preserved. IMPRESSION: Preliminary report questioned anterior column fracture of L1 however, this is not truly appreciated. Compression fractures without retropulsion at L4 and L5 are chronic. If the patient is having continued back pain consider MRI. Dictated by: Dictated on workstation # [id number]
--- NOTE | 2020-06-14 06:52 | Diagnostic Imaging Report ---
PROCEDURE: CT head and CT cervical spine without contrast. TECHNIQUE: Multiple contiguous axial images were obtained through the brain and cervical spine without the use of intravenous contrast. Sagittal and coronal reformations through the cervical spine were then performed. Auto Exposure Controls were utilized during the CT exam to meet ALARA standards for radiation dose reduction. INDICATION: Fall head injury COMPARISON: None. FINDINGS: CT HEAD: Ventricles normal in size, shape and position. There is no midline shift or mass effect. There is no hemorrhage or evidence of acute ischemia. There is no skull fracture. Paranasal sinuses and mastoids are clear. IMPRESSION: No acute intracranial abnormality. CT CERVICAL SPINE: Alignment is normal. There is no subluxation or fracture. Age-related degeneration is present. There is no osseous lesion. Soft tissues are unremarkable. IMPRESSION: No traumatic malalignment or fracture. Agree with preliminary report Dictated by: Dictated on workstation # [id number]
[2020-06-14 08:18] VITALS: BP 139/66
--- NOTE | 2020-06-14 11:31 | History & Physical-Hospitalist ---
History of Present Illness HPI/Chief Complaint Chief complaint: Altered mental status History of present illness: This is a 64-year-old white female clinic patient of [facility] who is extremely complex presents to the emergency room with altered mental status. After extensive work-up she was found to have elevated ammonia consistent with hepatic encephalopathy so she was placed on lactulose and admitted to the hospital for close monitoring. Currently patient is awake and alert but still very lethargic and no significant change in status is reported. Source: patient Exam Limitations: clinical condition Date Seen 06/14/20 Time Seen by a Provider: 10:00 Attending Physician Sarah Morrell Holly R MD Referring Physician Date of Admission Jun 14, 2020 at 00:01 Home Medications & Allergies Home Medications Reviewed patient Home Medication Reconciliation performed by pharmacy medication reconciliations engineering technician and/or nursing. Patients Allergies have been reviewed. Allergies Allergies Coded Allergies Hscxyje-Wta-Qxn Reductase Inhibitor (Verified Allergy, Intermediate, GI UPSET, N/V, 05/18/20) cefadroxil (Verified Allergy, Mild, 05/18/20) Sulfa (Sulfonamide Antibiotics) (Verified Allergy, Unknown, 05/18/20) oxycodone (Verified Allergy, Unknown, 05/18/20) "makes skin crawl" Past Tpqfegx-Ptokrp-Tuwhjr Hx Past Med/Social Hx: Reviewed Nursing Past Med/Soc Hx, Reviewed and Corrections made Patient Social History Marrital Status: Employed/Student: retired Alcohol Use: Denies Use Recreational Drug Use: No Smoking Status: Former Smoker Former Smoker, Quit: May 20, 1980 Type Used: Cigarettes 2nd Hand Smoke Exposure: No Recent Foreign Travel: No Contact w/other who traveled: No Recent Hopitalizations: Yes (FOR PORT PLACEMENT) Recent Infectious Disease Expo: No Immunizations Up To Date Tetanus Booster (TDap): Unknown Pediatric: Yes Date of Pneumonia Vaccine: May 16, 2019 Date of Influenza Vaccine: Apr 18, 2020 Seasonal Allergies Seasonal Allergies: Yes Past Medical History Surgeries: Adenoidectomy, Cardiac, CABG, Coronary Stent, Open Heart Surgery, Orthopedic, Tonsillectomy, Tubal Ligation Respiratory: COPD, Sleep Apnea Currently Using CPAP: No Currently Using BIPAP: No Cardiac: Atrial Fibrillation, Chronic Edema/Swelling, Coronary Artery Disease, Heart Attack, High Cholesterol, Hypertension Neurological: Dementia : No Reproductive: No Sexually Transmitted Disease: No HIV/AIDS: No Female Reproductive Disorders: Denies Menopausal Genitourinary: Bladder Infection, Renal Failure Gastrointestinal: Gastroesophageal Reflux, Liver Disease/Jaundice, Gastrointestinal Bleed, Diverticulosis, Hemorrhoids, Polyps Musculoskeletal: Degenerate Disk Disease, Arthritis, Chronic Back Pain, Fractures Endocrine: Diabetes, Insulin dep, Hypothyroidsim Loss of Vision: Denies Hearing Impairment: Denies Psychosocial: Anxiety Skin/Integumentary: Psoriasis History of Blood Disorders: Yes (CHRONIC ANEMIA-GI LOSS/GAVE SYNDROME; MULT TRANSFUSIONS/MULT ANTIBODIES) Adverse Reaction to Blood Wright: Yes (Antibody JKA) Family History Arthritis G8 BROTHER Completed stroke 19 MOTHER FH: anemia 19 MOTHER FH: lupus G8 SISTER FH: throat cancer 19 FATHER Hypertension G8 SISTER Myocardial infarction 19 MOTHER Thyroid disease 19 MOTHER G8 SISTER Hypertension, Stroke, Other Conditions/Hx PSH: -LEFT ANKLE SURGERY -LEFT KNEE SURGERY -CARDIAC CATHS--STENT X 1 -4 VESSEL CABG AT [facility] 02/16/18 -THORACENTESIS -TONSILLECTOMY/ADENOIDECTOMY -BTL -PORT RIGHT CHEST -LEXISCAN STRESS TEST 03/08/20--NORMAL. EF 70% Review of Systems Constitutional: see HPI, weakness, other (confusion) Physical Exam Physical Exam Vital Signs Vital Signs - First Documented 06/13/20 06/14/20 20:33 01:05 Temp 36.5 Pulse 81 Resp 18 B/P (MAP) 148/87 (107) Pulse Ox 97 O2 Delivery Room Air Capillary Refill : Greater Than 3 Seconds Height, Weight, BMI Height: 5'4.00" Weight: 196lbs. 5.0oz. 89.566424aw; 35.62 BMI Method:Stated General Appearance: No Apparent Distress, Chronically ill Eyes: Right Eye Normal Inspection, Right Eye PERRL HEENT: PERRL/EOMI, Normal ENT Inspection, Pharynx Normal, Moist Mucous Membranes Neck: Full Range of Motion, Normal Inspection, Non Tender Respiratory: Chest Non Tender, Lungs Clear, Normal Breath Sounds, No Accessory Muscle Use, No Respiratory Distress Cardiovascular: Regular Rate, Rhythm, No Edema, No Gallop, No JVD, No Murmur, N ormal Peripheral Pulses Gastrointestinal: Normal Bowel Sounds, No Organomegaly, No Pulsatile Mass, Non Tender, Soft Back: Normal Inspection, No CVA Tenderness, No Vertebral Tenderness Extremity: Normal Capillary Refill, Normal Inspection, Normal Range of Motion, Non Tender, No Calf Tenderness, No Pedal Edema Neurologic/Psychiatric: Alert, No Motor/Sensory Deficits, Normal Mood/Affect, Disoriented Skin: Normal Color, Warm/Dry Lymphatic: No Adenopathy Results Results/Procedures Labs Laboratory Tests 06/13/20 19:58 Patient resulted labs reviewed. Assessment/Plan Admission Diagnosis Assessment: Hepatic encephalopathy with AMS Paroxysmal Atrial fibrillation Gastric antral vascular ectasia (GAVE) CAD NIDDM Chronic Microcytic anemia, transfusion dependent HTN HLD CHF CKD MS (Nstemi x3) s/p CABG Hypothyroidism Anxiety Disorder Plan: Lactulose Monitor labs Monitor sugar Admission Status: Inpatient Order (span 2 midnights) Reason for Inpatient Admission: hepatic encephalopathy Diagnosis/Problems Diagnosis/Problems (1) Hepatic encephalopathy (2) Atrial fibrillation Status: Chronic (3) 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 (4) Hypothyroidism Status: Chronic (5) Coronary artery disease Status: Chronic (6) Type 2 diabetes mellitus with hyperglycemia Status: Chronic Clinical Quality Measures DVT/VTE Risk/Contraindication: Risk Factor Score Per Nursin RFS Level Per Nursing on Admit: 3=High SARAH MORRELL DO Jun 14, 2020 11:31
[2020-06-14 11:54] VITALS: BP 161/70
[2020-06-14 15:50] VITALS: BP 144/72
[2020-06-14] MEDS ORDERED: ONDA-105 PO (17:26)
[2020-06-14] MEDS ORDERED: NF-RIFA200 PO (17:26)
[2020-06-14] MEDS ORDERED: CLOB10TA3 PO (17:26)
[2020-06-14] MEDS ORDERED: TOPI50TA13 PO (17:26)
[2020-06-14] MEDS ORDERED: INSN1U SQ (17:28)
[2020-06-14 20:01] VITALS: BP 145/81
[2020-06-14] MEDS ORDERED: MELATONIN 3 MG TABLET PO PRN (21:45)
[2020-06-14] MEDS ORDERED: diphenhydrAMINE 25 MG TAB (BENADRYL) PO PRN (21:45)
[2020-06-14] MEDS ORDERED: ACETAMINOPHEN 500 MG TAB (TYLENOL) PO PRN (21:45)
[2020-06-14] MEDS ORDERED: DOCUSATE SODIUM 100 MG (COLACE) CAP PO PRN (21:45)
[2020-06-14] MEDS ORDERED: CALCIUM CARBONATE 500 MG (TUMS) TAB.CHEW PO PRN (21:45)
[2020-06-14] MEDS ORDERED: ONDANSETRON 4 MG/2 ML (SDV) Z0FRAN IVP PRN (21:45)
[2020-06-14] MEDS ORDERED: BUMETANIDE 1 MG (BUMEX) TAB PO PRN (21:45)
[2020-06-15 00:39] VITALS: BP 145/69
[2020-06-15] MEDS: 1/2 NS IV SOLUTION 1,000 ML IV SCH ×3 (03:55→16:49)
[2020-06-15 03:56] VITALS: BP 134/68
[2020-06-15 06:17] LABS: BASOPHILS % (AUTO) 1 % (0-10); EOSINOPHILS # (AUTO) 0.3 10^3/uL (0.0-0.3); EOSINOPHILS % (AUTO) 7 % (0-10); HEMATOCRIT 24 % (35-52); HEMOGLOBIN 7.6 g/dL (11.5-16.0); LYMPHOCYTES # (AUTO) 0.8 10^3/uL (1.0-4.0); LYMPHOCYTES % (AUTO) 21 % (12-44); MEAN CORPUSCULAR HEMOGLOBIN 31 pg (25-34); MEAN CORPUSCULAR HGB CONC 32 g/dL (32-36); MEAN CORPUSCULAR VOLUME 97 fL (80-99); MEAN PLATELET VOLUME 10.9 fL (9.0-12.2); MONOCYTES # (AUTO) 0.4 10^3/uL (0.0-1.0); MONOCYTES % (AUTO) 10 % (0-12); NEUTROPHILS # (AUTO) 2.5 10^3/uL (1.8-7.8); NEUTROPHILS % (AUTO) 62 % (42-75); PLATELET COUNT 117 10^3/uL (130-400); WHITE BLOOD COUNT 4.1 10^3/uL (4.3-11.0)
[2020-06-15 06:22] LABS: ALBUMIN 3.1 GM/DL (3.2-4.5)
[2020-06-15 06:23] LABS: CALCIUM 8.7 MG/DL (8.5-10.1)
[2020-06-15 06:26] LABS: BILIRUBIN,TOTAL 0.4 MG/DL (0.1-1.0)
[2020-06-15 06:40] LABS: CREATININE SERUM 1.53 MG/DL (0.60-1.30); POTASSIUM 3.2 MMOL/L (3.6-5.0); TOTAL PROTEIN 5.9 GM/DL (6.4-8.2)
[2020-06-15] MEDS: inSUlin ASPART (NovoLOG) 1 UNIT/0.01 ML (CHARGE PER UNIT) SC SCH ×4 (06:42→21:29)
[2020-06-15 08:00] VITALS: BP 121/58
[2020-06-15] MEDS: MAGNESIUM OXIDE (MAG-OX)400 MG TAB PO SCH ×2 (08:50→21:29)
[2020-06-15] MEDS: LORATADINE (CLARITIN) 10 MG TAB PO SCH (08:50)
[2020-06-15] MEDS: ONDANSETRON 4 MG (ZOFRAN) ORAL DISSOLVE TAB PO SCH (08:50)
[2020-06-15] MEDS: LACTULOSE SYRUP 10GM/15ML (ENULOSE) 30ML UDC PO SCH ×2 (08:57→21:29)
[2020-06-15] MEDS: toPIRamate 25 MG (TOPAMAX) TAB PO SCH ×2 (08:57→21:29)
[2020-06-15] MEDS: SENNA W/DOCUSATE (SENOKOT S) TABLET PO SCH ×2 (08:58→21:17)
[2020-06-15] MEDS ORDERED: RIFAXIMIN 200 MG TAB (NON-FORMULARY) PO SCH (09:00)
[2020-06-15 12:00] VITALS: BP 140/63
--- NOTE | 2020-06-15 12:11 | Progress Note - Hospitalist ---
Subjective HPI/CC On Admission Date Seen by Provider: Jun 15, 2020 Time Seen by Provider: 12:00 Chief complaint: Altered mental status History of present illness: This is a 64-year-old white female clinic patient of [facility] who is extremely complex presents to the emergency room with altered mental status. After extensive work-up she was found to have elevated ammonia consistent with hepatic encephalopathy so she was placed on lactulose and admitted to the hospital for close monitoring. Currently patient is awake and alert but still very lethargic and no significant change in status is reported. Subjective/Events-last exam Still a bit confused Refuses Lactulose Very difficult to manage Not going home yet May need transfusion Review of Systems General: Fatigue, Malaise Neurological: Confusion Focused Exam Lactate Level 06/13/20 19:58: Lactic Acid Level 2.47*H Objective Exam Vital Signs Vital Signs Date Time Temp Pulse Resp B/P (MAP) Pulse Ox O2 Delivery O2 Flow Rate FiO2 06/15/20 15:55 36.4 75 18 135/63 (87) 95 Room Air Capillary Refill : Greater Than 3 Seconds General Appearance: No Apparent Distress, WD/WN, Chronically ill Respiratory: Chest Non Tender, Lungs Clear, Normal Breath Sounds, No Accessory Muscle Use, No Respiratory Distress Cardiovascular: Regular Rate, Rhythm, No Edema, No Gallop, No JVD, No Murmur, Normal Peripheral Pulses Neurologic/Psychiatric: Alert, Disoriented Results/Procedures Lab Laboratory Tests 06/15/20 05:20 Patient resulted labs reviewed. Assessment/Plan Assessment and Plan Assess & Plan/Chief Complaint Assessment: Hepatic encephalopathy with AMS Paroxysmal Atrial fibrillation Gastric antral vascular ectasia (GAVE) CAD NIDDM Chronic Microcytic anemia, transfusion dependent HTN HLD CHF CKD [place] (Nstemi x3) s/p CABG Hypothyroidism Anxiety Disorder Plan: Lactulose Monitor labs Monitor sugar 06/15/20: Refusing Lactulose Improved ammonia Diagnosis/Problems Diagnosis/Problems (1) Hepatic encephalopathy (2) Atrial fibrillation Status: Chronic (3) 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 (4) Hypothyroidism Status: Chronic (5) Coronary artery disease Status: Chronic (6) Type 2 diabetes mellitus with hyperglycemia Status: Chronic Clinical Quality Measures DVT/VTE Risk/Contraindication: Risk Factor Score Per Nursin RFS Level Per Nursing on Admit: 3=High Contraindications-Pharm: Other *list below* Other: chronic GIB life theratening MICHELLE GARCIA DO Jun 15, 2020 12:11
[2020-06-15 15:55] VITALS: BP 135/63
[2020-06-15 19:20] VITALS: BP 134/68
[2020-06-15] MEDS: CLOBAZAM 10 MG PO SCH (21:00)
[2020-06-16] VITALS (7 sets, daily range): BP systolic 118–143; BP diastolic 62–79
[2020-06-16] MEDS: inSUlin ASPART (NovoLOG) 1 UNIT/0.01 ML (CHARGE PER UNIT) SC SCH ×4 (05:09→20:26)
[2020-06-16 05:37] LABS: BASOPHILS % (AUTO) 0 % (0-10); EOSINOPHILS # (AUTO) 0.5 10^3/uL (0.0-0.3); EOSINOPHILS % (AUTO) 8 % (0-10); HEMATOCRIT 25 % (35-52); HEMOGLOBIN 8.1 g/dL (11.5-16.0); LYMPHOCYTES % (AUTO) 17 % (12-44); MEAN CORPUSCULAR HEMOGLOBIN 31 pg (25-34); MEAN CORPUSCULAR HGB CONC 33 g/dL (32-36); MEAN CORPUSCULAR VOLUME 95 fL (80-99); MEAN PLATELET VOLUME 10.5 fL (9.0-12.2); MONOCYTES # (AUTO) 0.5 10^3/uL (0.0-1.0); MONOCYTES % (AUTO) 9 % (0-12); NEUTROPHILS # (AUTO) 3.9 10^3/uL (1.8-7.8); NEUTROPHILS % (AUTO) 66 % (42-75); PLATELET COUNT 147 10^3/uL (130-400); WHITE BLOOD COUNT 5.9 10^3/uL (4.3-11.0)
[2020-06-16] MEDS: 1/2 NS IV SOLUTION 1,000 ML IV SCH ×3 (06:20→19:35)
[2020-06-16 07:18] LABS: ALBUMIN 3.1 GM/DL (3.2-4.5); POTASSIUM 3.7 MMOL/L (3.6-5.0)
[2020-06-16 07:20] LABS: CALCIUM 8.6 MG/DL (8.5-10.1)
--- NOTE | 2020-06-16 07:20 | Progress Note - Hospitalist ---
Subjective HPI/CC On Admission Date Seen by Provider: Jun 16, 2020 Time Seen by Provider: 10:30 Chief complaint: Altered mental status History of present illness: This is a 64-year-old white female clinic patient of [facility] who is extremely complex presents to the emergency room with altered mental status. After extensive work-up she was found to have elevated ammonia consistent with hepatic encephalopathy so she was placed on lactulose and admitted to the hospital for close monitoring. Currently patient is awake and alert but still very lethargic and no significant change in status is reported. Subjective/Events-last exam Confused Lactulose given Rifaximin ordered and clarified with pharmacy so she can get it started Hgb 8.1 Ammonia 59 Review of Systems General: Fatigue, Malaise Neurological: Confusion Focused Exam Lactate Level Objective Exam Vital Signs Vital Signs Date Time Temp Pulse Resp B/P (MAP) Pulse Ox O2 Delivery O2 Flow Rate FiO2 06/17/20 03:56 36.4 71 18 128/58 (81) 93 Room Air Capillary Refill : Greater Than 3 Seconds General Appearance: No Apparent Distress, WD/WN, Chronically ill Respiratory: Chest Non Tender, Lungs Clear, Normal Breath Sounds, No Accessory Muscle Use, No Respiratory Distress Cardiovascular: Regular Rate, Rhythm, No Edema, No Gallop, No JVD, No Murmur, Normal Peripheral Pulses Neurologic/Psychiatric: Alert, Oriented x3, No Motor/Sensory Deficits, Normal Mood/Affect Results/Procedures Lab Laboratory Tests 06/17/20 05:20 Patient resulted labs reviewed. Assessment/Plan Assessment and Plan Assess & Plan/Chief Complaint Assessment: Hepatic encephalopathy with AMS Paroxysmal Atrial fibrillation Gastric antral vascular ectasia (GAVE) CAD NIDDM Chronic Microcytic anemia, transfusion dependent HTN HLD CHF CKD [place] (Nstemi x3) s/p CABG Hypothyroidism Anxiety Disorder Plan: Lactulose Monitor labs Monitor sugar 06/15/20: Refusing Lactulose Improved ammonia 06/16/20: Improved a bit Very chronically ill Diagnosis/Problems Diagnosis/Problems (1) Hepatic encephalopathy (2) Atrial fibrillation Status: Chronic (3) 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 (4) Hypothyroidism Status: Chronic (5) Coronary artery disease Status: Chronic (6) Type 2 diabetes mellitus with hyperglycemia Status: Chronic Clinical Quality Measures DVT/VTE Risk/Contraindication: Risk Factor Score Per Nursin RFS Level Per Nursing on Admit: 3=High Contraindications-Pharm: Other *list below* Other: chronic GIB life theratening MICHELLE GARCIA DO Jun 16, 2020 07:20
[2020-06-16 07:21] LABS: TOTAL PROTEIN 5.7 GM/DL (6.4-8.2)
[2020-06-16 07:23] LABS: BILIRUBIN,TOTAL 0.4 MG/DL (0.1-1.0)
[2020-06-16 07:24] LABS: CREATININE SERUM 1.43 MG/DL (0.60-1.30)
[2020-06-16] MEDS: SENNA W/DOCUSATE (SENOKOT S) TABLET PO SCH ×2 (07:52→20:26)
[2020-06-16] MEDS: LACTULOSE SYRUP 10GM/15ML (ENULOSE) 30ML UDC PO SCH ×2 (08:54→20:26)
[2020-06-16] MEDS: LORATADINE (CLARITIN) 10 MG TAB PO SCH (08:55)
[2020-06-16] MEDS: toPIRamate 25 MG (TOPAMAX) TAB PO SCH ×2 (08:55→20:26)
[2020-06-16] MEDS: MAGNESIUM OXIDE (MAG-OX)400 MG TAB PO SCH ×2 (08:55→20:26)
[2020-06-16] MEDS: ONDANSETRON 4 MG (ZOFRAN) ORAL DISSOLVE TAB PO SCH (08:55)
[2020-06-16] MEDS: CLOBAZAM 10 MG PO SCH (14:31)
[2020-06-16] MEDS: RIFAXIMIN 550 MG TABLET (XIFAXAN) PO SCH (20:26)
[2020-06-17 03:56] VITALS: BP 128/58
[2020-06-17 05:33] LABS: BASOPHILS % (AUTO) 1 % (0-10); EOSINOPHILS # (AUTO) 0.4 10^3/uL (0.0-0.3); EOSINOPHILS % (AUTO) 8 % (0-10); HEMATOCRIT 23 % (35-52); HEMOGLOBIN 7.6 g/dL (11.5-16.0); LYMPHOCYTES % (AUTO) 23 % (12-44); MEAN CORPUSCULAR HEMOGLOBIN 32 pg (25-34); MEAN CORPUSCULAR HGB CONC 34 g/dL (32-36); MEAN CORPUSCULAR VOLUME 97 fL (80-99); MEAN PLATELET VOLUME 10.7 fL (9.0-12.2); MONOCYTES # (AUTO) 0.5 10^3/uL (0.0-1.0); MONOCYTES % (AUTO) 11 % (0-12); NEUTROPHILS # (AUTO) 2.4 10^3/uL (1.8-7.8); NEUTROPHILS % (AUTO) 57 % (42-75); PLATELET COUNT 117 10^3/uL (130-400); WHITE BLOOD COUNT 4.3 10^3/uL (4.3-11.0)
[2020-06-17 05:47] LABS: POTASSIUM 3.9 MMOL/L (3.6-5.0)
[2020-06-17 05:48] LABS: CALCIUM 8.4 MG/DL (8.5-10.1)
[2020-06-17 05:49] LABS: TOTAL PROTEIN 5.7 GM/DL (6.4-8.2)
[2020-06-17 05:51] LABS: BILIRUBIN,TOTAL 0.3 MG/DL (0.1-1.0)
[2020-06-17 05:53] LABS: CREATININE SERUM 1.48 MG/DL (0.60-1.30)
[2020-06-17] MEDS: inSUlin ASPART (NovoLOG) 1 UNIT/0.01 ML (CHARGE PER UNIT) SC SCH ×4 (06:04→20:12)
[2020-06-17] MEDS: 1/2 NS IV SOLUTION 1,000 ML IV SCH (06:44)
[2020-06-17 08:00] VITALS: BP 146/73
[2020-06-17] MEDS: SENNA W/DOCUSATE (SENOKOT S) TABLET PO SCH ×2 (08:59→20:12)
[2020-06-17] MEDS: LORATADINE (CLARITIN) 10 MG TAB PO SCH (09:05)
[2020-06-17] MEDS: LACTULOSE SYRUP 10GM/15ML (ENULOSE) 30ML UDC PO SCH ×2 (09:05→20:11)
[2020-06-17] MEDS: toPIRamate 25 MG (TOPAMAX) TAB PO SCH ×2 (09:05→20:12)
[2020-06-17] MEDS: MAGNESIUM OXIDE (MAG-OX)400 MG TAB PO SCH ×2 (09:05→20:12)
[2020-06-17] MEDS: ONDANSETRON 4 MG (ZOFRAN) ORAL DISSOLVE TAB PO SCH (09:05)
[2020-06-17] MEDS: RIFAXIMIN 550 MG TABLET (XIFAXAN) PO SCH ×2 (09:11→20:11)
[2020-06-17 12:00] VITALS: BP 148/66
--- NOTE | 2020-06-17 12:29 | Progress Note - Hospitalist ---
Subjective HPI/CC On Admission Date Seen by Provider: Jun 17, 2020 Time Seen by Provider: 11:30 Chief complaint: Altered mental status History of present illness: This is a 64-year-old white female clinic patient of [facility] who is extremely complex presents to the emergency room with altered mental status. After extensive work-up she was found to have elevated ammonia consistent with hepatic encephalopathy so she was placed on lactulose and admitted to the hospital for close monitoring. Currently patient is awake and alert but still very lethargic and no significant change in status is reported. Subjective/Events-last exam Less confusion PT OT rehab ordered for tomorrow Patient still lethargic but much improved in chair Hgb 7.6 Ammonia 63 Review of Systems General: Fatigue, Malaise Neurological: Confusion Objective Exam Vital Signs Vital Signs Date Time Temp Pulse Resp B/P (MAP) Pulse Ox O2 Delivery O2 Flow Rate FiO2 06/17/20 19:33 36.6 70 14 125/73 (90) 98 Room Air Capillary Refill : Less Than 3 SecondsLess Than 3 Seconds General Appearance: No Apparent Distress, WD/WN, Chronically ill Respiratory: Chest Non Tender, Lungs Clear, Normal Breath Sounds, No Accessory Muscle Use, No Respiratory Distress Cardiovascular: Regular Rate, Rhythm, No Edema, No Gallop, No JVD, No Murmur, Normal Peripheral Pulses Neurologic/Psychiatric: Alert, Oriented x3, No Motor/Sensory Deficits, Normal Mood/Affect Results/Procedures Lab Laboratory Tests 06/17/20 05:20 Patient resulted labs reviewed. Assessment/Plan Assessment and Plan Assess & Plan/Chief Complaint Assessment: Hepatic encephalopathy with AMS Paroxysmal Atrial fibrillation Gastric antral vascular ectasia (GAVE) CAD NIDDM Chronic Microcytic anemia, transfusion dependent HTN HLD CHF CKD [place] (Nstemi x3) s/p CABG Hypothyroidism Anxiety Disorder Plan: Lactulose Monitor labs Monitor sugar 06/15/20: Refusing Lactulose Improved ammonia 06/16/20: Improved a bit Very chronically ill 06/17/20: Improved Lactulose Monitor labs PT OT IRF? Diagnosis/Problems Diagnosis/Problems (1) Hepatic encephalopathy (2) Atrial fibrillation Status: Chronic (3) 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 (4) Hypothyroidism Status: Chronic (5) Coronary artery disease Status: Chronic (6) Type 2 diabetes mellitus with hyperglycemia Status: Chronic Clinical Quality Measures DVT/VTE Risk/Contraindication: Risk Factor Score Per Nursin RFS Level Per Nursing on Admit: 3=High Contraindications-Pharm: Other *list below* Other: chronic GIB life theratening MICHELLE GARCIA DO Jun 17, 2020 12:29
[2020-06-17 16:31] VITALS: BP 152/79
[2020-06-17 19:33] VITALS: BP 125/73
[2020-06-17 23:30] VITALS: BP 114/73
[2020-06-18 04:00] VITALS: BP 128/74
[2020-06-18 05:33] LABS: BASOPHILS % (AUTO) 0 % (0-10); EOSINOPHILS # (AUTO) 0.5 10^3/uL (0.0-0.3); EOSINOPHILS % (AUTO) 10 % (0-10); HEMATOCRIT 24 % (35-52); HEMOGLOBIN 7.7 g/dL (11.5-16.0); LYMPHOCYTES # (AUTO) 0.8 10^3/uL (1.0-4.0); LYMPHOCYTES % (AUTO) 17 % (12-44); MEAN CORPUSCULAR HEMOGLOBIN 32 pg (25-34); MEAN CORPUSCULAR HGB CONC 33 g/dL (32-36); MEAN CORPUSCULAR VOLUME 97 fL (80-99); MEAN PLATELET VOLUME 10.8 fL (9.0-12.2); MONOCYTES # (AUTO) 0.5 10^3/uL (0.0-1.0); MONOCYTES % (AUTO) 9 % (0-12); NEUTROPHILS # (AUTO) 3.2 10^3/uL (1.8-7.8); NEUTROPHILS % (AUTO) 64 % (42-75); PLATELET COUNT 137 10^3/uL (130-400)
[2020-06-18 05:45] LABS: ALBUMIN 3.1 GM/DL (3.2-4.5)
[2020-06-18 05:46] LABS: POTASSIUM 4.1 MMOL/L (3.6-5.0)
[2020-06-18 05:47] LABS: CALCIUM 8.6 MG/DL (8.5-10.1)
[2020-06-18 05:48] LABS: TOTAL PROTEIN 5.8 GM/DL (6.4-8.2)
[2020-06-18 05:50] LABS: BILIRUBIN,TOTAL 0.3 MG/DL (0.1-1.0)
[2020-06-18] MEDS: inSUlin ASPART (NovoLOG) 1 UNIT/0.01 ML (CHARGE PER UNIT) SC SCH ×2 (05:51→12:19)
[2020-06-18 05:52] LABS: CREATININE SERUM 1.6 MG/DL (0.60-1.30)
[2020-06-18 08:00] VITALS: BP 125/70
[2020-06-18] MEDS: toPIRamate 25 MG (TOPAMAX) TAB PO SCH (08:59)
[2020-06-18] MEDS: MAGNESIUM OXIDE (MAG-OX)400 MG TAB PO SCH (08:59)
[2020-06-18] MEDS: LORATADINE (CLARITIN) 10 MG TAB PO SCH (08:59)
[2020-06-18] MEDS: SENNA W/DOCUSATE (SENOKOT S) TABLET PO SCH (08:59)
[2020-06-18] MEDS: RIFAXIMIN 550 MG TABLET (XIFAXAN) PO SCH (08:59)
[2020-06-18] MEDS: ONDANSETRON 4 MG (ZOFRAN) ORAL DISSOLVE TAB PO SCH (08:59)
[2020-06-18] MEDS: LACTULOSE SYRUP 10GM/15ML (ENULOSE) 30ML UDC PO SCH (08:59)
--- NOTE | 2020-06-18 10:01 | Physical Therapy Evaluation ---
PT Evaluation-General Medical Diagnosis Admission Date Jun 14, 2020 at 00:01 Medical Diagnosis: hepatic encephalopathy/IDDM Onset Date: Jun 14, 2020 Therapy Diagnosis Therapy Diagnosis: debility/weakness Height/Weight Height (Feet): 5 Height (Inches): 4.00 Weight (Pounds): 196 Weight (Ounces): 5.0 Precautions Precautions/Isolations: Fall Prevention, Standard Precautions Referral Physician: Porsche Reason for Referral: Evaluation/Treatment Medical History Pertinent Medical History: Atrial Fib, CABG, CAD, DM, Dementia, Heart Failure, HTN, Hypothroidism, MT, Renal Insufficiency Current History EMS from home secondary to weakness Reviewed History: Yes Social History Home: Single Level Current Living Status: Spouse Entry Into Home: Ramp Prior Prior Level of Function SCALE: Activities may be completed with or without assistive devices. 5-Urhgfzxwqr-lfedxfv completes the activity by him/herself with no assistance from a helper. 5-Set-up or Clean-up Assistance-helper sets up or cleans up; patient completes activity. [place] assists only prior to or following the activity. 4-Supervision or Touching Assistance-helper provides verbal cues and/or touching/steadying and/or contact guard assistance as patient completes activity. Assistance may be provided throughout the activity or intermittently. 3-Partial/Moderate Assistance-helper does LESS THAN HALF the effort. [place] lifts, holds or supports trunk or limbs, but provides less than half the effort. 2-Substantial/Maximal Assistance-helper does MORE THAN HALF the effort. [place] lifts or holds trunk or limbs and provides more than half the effort. 0-Flgpfkvuv-hhocea does ALL the effort. Patient does none of the effort to complete the activity. Or, the assistance of 2 or more helpers is required for the patient to complete the activity. If activity was not attempted, code reason: 7-Patient Refused. 9-Not Applicable-not attempted and the patient did not perform the activity before the current illness, exacerbation or injury. 10-Not Attempted due to Environmental Limitations-(lack of equipment, weather restraints, etc.). 88-Not Attempted due to Medical Conditions or Safety Concerns. Bed Mobility: 6 Transfers (B,C,W/C): 6 Gait: 6 Stairs: 9 Indoor Mobility (Ambulation): Independent Stairs: Not Applicalbe Prior Devices Use: Walker PT Evaluation-Current Subjective Patient agrees to PT. Recognizes this PT from working together. Objective Patient Orientation: Normal For Age ROM/Strength ROM Lower Extremities bilateral LE WFL Strength Lower Extremities 4-/5 grossly all planes bilateral LE Integumentary/Posture Integumentary refer to nursing notes Bowel Incontinence: No Bladder Incontinence: No Posture WFL Neuromuscular (Tone, Coordination, Reflexes) grossly intact Sensory Vision: Functional Hearing: Functional Transfers Roll Left to Right (QC): 6 Sit to Lying (QC): 6 Lying to Sitting/Side of Bed(Q: 6 Sit to Stand (QC): 4 (SBA for inititial evaluation) Chair/Jqw-iy-Gdkjl Xfer(QC): 4 (SBA for safety ) Gait Does the Patient Walk?: Yes Mode of Locomotion: Walk Anticipated Mode of Locomotion: Walk Walk 10 feet (QC): 4 Walk 50 ft with 2 Turns(QC): 4 Walk 150 ft (QC): 4 Distance: 300' Gait Assistive Device: FWW Comments/Gait Description safe and functional with no deviation Wheelchair Training Does the Pt Use a Wheelchair?: No Balance Sitting Static: Normal Sitting Dynamic: Normal Standing Static: Normal Standing Dynamic: Normal Assessment/Needs 64 y.o. female,will be seen short term by skilled PT to address functional mobility and strength to ensure safe return to home with spouse. Rehab Potential: Fair PT Nuisance Wildlife Trapper Goals Nuisance Wildlife Trapper Goals PT Nursing Home Goals Time Frame: Jun 23, 2020 Roll Left & Right (QC): 6 Sit to Lying (QC): 6 Lying-Sitting on Side/Bed(QC): 6 Sit to Stand (QC): 6 Chair/Egv-ls-Nwcte Xfer(QC): 6 Toilet Transfer (QC): 6 Does the Patient Walk: Yes Walk 10 feet (QC): 6 Walk 50ft with 2 Turns (QC): 6 Walk 150 ft (QC): 6 1 Step (curb) (QC): 6 PT Plan Treatment/Plan Treatment Plan: Continue Plan of Care Treatment Plan: Education, Functional Activity Tamy, Functional Strength, Gait, Safety, Therapeutic Exercise, Transfers Treatment Duration: Jun 23, 2020 Frequency: 6 times per week Estimated Hrs Per Day: .25 hour per day Patient and/or Family Agrees t: Yes Discharge Recommendations Therapy Discharge Recommendati: Home & Family Time/GCodes Time In: 900 Time Out: 910 Total Billed Treatment Time: 10 Total Billed Treatment 1 visit EVModC 10 min YOLETTE HILARIO PT Jun 18, 2020 10:00
--- NOTE | 2020-06-18 10:53 | Progress Note - Hospitalist ---
AUBREE DOUGLASS MED STUDENT 06/18/20 1053: Subjective HPI/CC On Admission Date Seen by Provider: Jun 18, 2020 Time Seen by Provider: 10:00 Chief complaint: Altered mental status History of present illness: This is a 64-year-old white female clinic patient of [facility] who is extremely complex presents to the emergency room with altered mental status. After extensive work-up she was found to have e levated ammonia consistent with hepatic encephalopathy so she was placed on lactulose and admitted to the hospital for close monitoring. Currently patient is awake and alert but still very lethargic and no significant change in status is reported. Subjective/Events-last exam Patient states today that she has some pain in her R arm and shoulder. She states that this is not a new pain, but has been a chronic issue for her for a while now. She states that she has had 2 bowel movements this morning and has also been taking her lactulose. She does not live alone and has help with her medications. States that she ran out of lactulose at home which is why she wasn't taking it. She is able to eat and ambulate with a walker, says that she went on a walk around the unit this morning. She is alert and oriented x3 this morning, which is greatly improved from admission. Pt will be evaluated by PT to see if it is possible to send home today. Discussed water pill with patient, l isted as PRN in notes but patient says her doctor told her to discontinue it entirely. Will need to make sure Pt takes lactulose at home. Objective Exam Vital Signs Vital Signs Date Time Temp Pulse Resp B/P (MAP) Pulse Ox O2 Delivery O2 Flow Rate FiO2 06/18/20 08:00 36.2 80 18 125/70 (88) 97 Room Air Capillary Refill : Less Than 3 SecondsLess Than 3 Seconds General Appearance: No Apparent Distress Neck: Full Range of Motion, Non Tender Respiratory: Chest Non Tender, Lungs Clear, Normal Breath Sounds, No Accessory Muscle Use, No Respiratory Distress Cardiovascular: Regular Rate, Rhythm, No Edema, No Gallop, No JVD, No Murmur, Normal Peripheral Pulses Gastrointestinal: Non Tender Rectal: Deferred Extremity: No Pedal Edema Neurologic/Psychiatric: Alert, Oriented x3 Skin: Normal Color, Warm/Dry Results/Procedures Lab Laboratory Tests 06/18/20 05:15 Patient resulted labs reviewed. Assessment/Plan Assessment and Plan Assess & Plan/Chief Complaint PT evaluation for Discharge Ensure patient has lactulose at home and instruct to take it as prescribed. Continue to monitor for any signs of worsening mental status. Continue CBC, CMP, Ammonia if patient is not discharged. Diagnosis/Problems Diagnosis/Problems (1) Portal hypertension Status: Chronic (2) Shortness of breath Status: Acute (3) Cirrhosis Status: Chronic (4) Atrial fibrillation Status: Chronic (5) Hyperammonemia Status: Acute (6) Insulin dependent diabetes mellitus Status: Chronic (7) Hepatic encephalopathy Status: Acute (8) CKD (chronic kidney disease) Status: Chronic Clinical Quality Measures DVT/VTE Risk/Contraindication: Risk Factor Score Per Nursin RFS Level Per Nursing on Admit: 3=High Contraindications-Pharm: Other *list below* Other: chronic GIB life theratening Supervisory-Addendum Brief Verification & Attestation Participated in pt care: history, physical Personally performed: exam, history Care discussed with: other Procedures: n/a n/a TOMASA CARMONA MD 06/18/20 1729: Supervisory-Addendum Brief Verification & Attestation I personally saw patient today and did my own history and exam and plan- see discharge summary for my documentation. AUBREE DOUGLASS MED STUDENT Jun 18, 2020 10:53 TOMASA CARMONA MD Jun 18, 2020 17:29
[2020-06-18] MEDS ORDERED: FOLI1TAB24 PO (10:58)
[2020-06-18] MEDS ORDERED: OMEP40CA27 PO (10:59)
[2020-06-18] MEDS ORDERED: LEVO125C4 PO (10:59)
[2020-06-18] MEDS ORDERED: NITR-65 PO (10:59)
[2020-06-18] MEDS ORDERED: ERGO50006 PO (11:02)
[2020-06-18] MEDS ORDERED: LACT20SO2 PO (11:03)
--- NOTE | 2020-06-18 11:05 | Discharge Summary ---
Discharge [facility] Discharge Medications New, Converted or Re-Newed RX: Transmitted to Pharmacy New Medications: Lactulose (Lactulose) 20 Gm/30 Ml Solution 20 GM PO BID, #1800 ML 0 Refills Continued Medications: Bumetanide (Bumetanide) 1 Mg Tablet 1 MG PO DAILY PRN for FLUID RETENTION, TAB Cetirizine HCl (Zyrtec) 10 Mg Tablet 10 MG PO DAILY, TAB Ergocalciferol (Vitamin D2) (Vitamin D2) 1,250 Mcg Capsule 713126 UNITS PO WEEK, CAP Folic Acid (Folic Acid) 1 Mg Tablet 1 MG PO DAILY, TAB Insulin NPH Human Isophane (Novolin N) 100 Unit/1 Ml Vial 15 UNIT SQ BID, VIAL Levothyroxine Sodium (Levothyroxine) 125 Mcg Capsule 125 MCG PO DAILY, CAP Magnesium Oxide (Magox 400) 400 Mg Tablet 400 MG PO BID, TAB Nitrofurantoin Monohyd/M-Cryst (Macrobid 100 mg Capsule) 100 Mg Capsule 1 TAB PO DAILY, CAP Omeprazole (Omeprazole) 40 Mg Capsule.dr 40 MG PO BID, CAP Ondansetron HCl (Ondansetron HCl) 4 Mg Tablet 4 MG PO DAILY, TAB Rifaximin (Xifaxan) 200 Mg Tablet 600 MG PO BID, TAB TAKES 3 (200MG) TABS Topiramate (Topiramate) 50 Mg Tablet 50 MG PO BID, TAB Discontinued Medications: Clobazam (Clobazam) 10 Mg Tablet 10 MG PO BID, TAB Patient Instructions Goal/Follow Up Appt: Follow up with Dr. Wilson on June 26 at 10:20 am. Return to The Hospital For: Confusion, seizures, inability to keep down medications Activity & Diet Discharge Diet: ADA Diet Activity as Tolerated: Yes TOMASA CARMONA MD Jun 18, 2020 11:05
[2020-06-18 12:00] VITALS: BP 125/65
--- NOTE | 2020-06-18 13:15 | Occupational Therapy Eval ---
OT Evaluation-General/PLF Medical Diagnosis Admission Date Jun 14, 2020 at 00:01 Medical Diagnosis: hepatic encephalopathy/IDDM Onset Date: Jun 14, 2020 Therapy Diagnosis Therapy Diagnosis: Decreased ADL skills Height/Weight Height (Feet): 5 Height (Inches): 4.00 Weight (Pounds): 196 Weight (Ounces): 5.0 Precautions Precautions/Isolations: Fall Prevention, Standard Precautions Weight Bear Status Weight Bearing Restriction: Weight Bearing/Tolerated Referral Physician: Porsche Referral Reason: Activity Tolerance, Self Care, Evaluation/Treatment, S trengthening/ROM Medical History Pertinent Medical History: Atrial Fib, CABG, CAD, DM, Dementia, Heart Failure, HTN, Hypothroidism, UT, Renal Insufficiency Additional Medical History open heart surgery Current History Pt. presented to ER with AMS. Workup suggests hepatic encephalopathy with AMS. Reviewed History: Yes Social History Home: Single Level Current Living Status: Spouse Entry Into Home: Ramp ADL-Prior Level of Function SCALE: Activities may be completed with or without assistive devices. 4-Osnsrhokvu-nrkdgxl completes the activity by him/herself with no assistance from a helper. 5-Set-up or Clean-up Assistance-helper sets up or cleans up; patient completes activity. [place] assists only prior to or following the activity. 4-Supervision or Touching Assistance-helper provides verbal cues and/or touching/steadying and/or contact guard assistance as patient completes activity. Assistance may be provided throughout the activity or intermittently. 3-Partial/Moderate Assistance-helper does LESS THAN HALF the effort. [place] lifts, holds or supports trunk or limbs, but provides less than half the effort. 2-Substantial/Maximal Assistance-helper does MORE THAN HALF the effort. [place] lifts or holds trunk or limbs and provides more than half the effort. 3-Rqandaoxd-qhupni does ALL the effort. Patient does none of the effort to complete the activity. Or, the assistance of 2 or more helpers is required for the patient to complete the activity. If activity was not attempted, code reason: 7-Patient Refused. 9-Not Applicable-not attempted and the patient did not perform the activity before the current illness, exacerbation or injury. 10-Not Attempted due to Environmental Limitations-(lack of equipment, weather restraints, etc.). 88-Not Attempted due to Medical Conditions or Safety Concerns. ADL PLOF Comments Pt. states that she is able to bathe/dress self, but her niece can assist her as needed. She currently lives in [place] and uses a walker. Self Care: Unknown Functional Cognition: Independent DME/Equipment: Bath Chair, Shower OT Current Status Subjective No pain reported. Appearance Pt. in bed. Agrees to work with OT. Mental Status/Objective Patient Orientation: Person, Place Attachments: IV Current Hand Dominance: Right Upper Extremity ROM Limited at shoulder level. ADL-Treatment Eating (QC): 6 (per pt.) Shower/Bathe Self (QC): 7 On/Off Footwear (QC): 3 Toileting Hygiene (QC): 4 (SBA to pull down and up brief, and cleanse self.) Other Treatments Pt. agrees to work with OT. Pt. transfers supine-sit with min assist. She is able to don slipper socks with SBA. She is able to balance on side of bed, and stand with walker with SBA. Pt. ambulates to bathroom with CGA, and is able to toilet with SBA. Pt. declines getting cleaned up at this time. Pt. ambulates to sink and washes hands. Declines sitting up in chair pt. transfers to bed with SBA. All needs met. Education OT Patient Education: Correct positioning, Modified ADL techniques, Progress toward Goal/Update tx plan, Purpose of tx/functional activities, Reviewed precautions, Rehab process, Transfer techniques Teaching Recipient: Patient Teaching Methods: Demonstration, Discussion Response to Teaching: Verbalize Understanding, Return Demonstration OT Store Group Manager Goals Store Group Manager Goals Time Frame: Jun 25, 2020 Oral Hygiene (QC): 5 Toileting Hygiene (QC): 6 Upper Body Dressing (QC): 5 Lower Body Dressing (QC): 4 On/Off Footwear (QC): 4 Additional Goals: 1-Demonstrate ADL Tasks, 2-Verbalize Understanding, 3- ImproveStrength/Tamy 1=Demonstrate adherence to instructed precautions during ADL tasks. 2=Patient will verbalize/demonstrate understanding of assistive devices/modifications for ADL. 3=Patient will improve strength/tolerance for activity to enable patient to perform ADL's. OT Education/Plan Problem List/Assessment Assessment: Decreased Activ Tolerance, Impaired I ADL's, Impaired Self-Care Skills Discharge Recommendations Plan/Recommendations: Continue POC Therapy Discharge Recommendati: Home & Family, Post Acute OT Treatment Plan/Plan of Care Treatment,Training & Education: Yes Patient would benefit from OT for education, treatment and training to promote independence in ADL's, mobility, safety and/or upper extremity function for ADL's. Plan of Care: ADL Retraining, Functional Mobility, UE Funct Exercise/Act Treatment Duration: Jun 25, 2020 Frequency: 5 times per week Estimated Hrs Per Day: .25 hour per day Agreement: Yes Rehab Potential: Fair Time/GCodes Start Time: 10:35 Stop Time: 10:50 Total Time Billed (hr/min): 15 Billed Treatment Time 1, SANDRA WONG OT Jun 18, 2020 13:15
--- NOTE | 2020-06-18 15:14 | Discharge Summary ---
Discharge Summary Hospital Course Hospital Course Date of Admission: Jun 14, 2020 at 00:01 Admission Diagnosis : Hepatic encephalopathy Altered mental status Seizure disorder Diabetes Chronic anemia CAD CKD Atrial fibrillation Family Physician/Provider: James Wilson MD Date of Discharge: 06/18/20 Discharge Diagnosis: Hepatic encephalopathy Altered mental status Seizure disorder Diabetes Chronic anemia CAD CKD Atrial fibrillation Hospital Course: Pt admitted with confusion, reported she had a fall prior to that, so multiple CT scans were done in ER including, chest/abdomen/pelvis which showed only left lung atalectasis, head and cervical spine which showed no acute abnormality, spine which showed "IMPRESSION: Preliminary report questioned anterior column fracture of L1 however, this is not truly appreciated. Compression fractures without retropulsion at L4 and L5 are chronic. If the patient is having continued back pain consider MRI." and x-rays of left hip, pelvis, left femur, left tib/fib with no fractures. She was given lactulose and had improved mental status, in spite of varying and at times increasing ammonia. No source of infection to lead to worsening encephalopathy found, but on med reconciliation, I did find she was recently started on clobazem for abnormal EEG (about a week or two prior to this), and am concerned the benzo with her underlying encephalopathy may have led to worsening status. Additionally, it appeared her lactulose had not been filled recently enough to show consistent use. Lactulose refilled on d/c and holding benzo, but did request outpatient nurse to call Neurology office to see if they want her to continue the benzo or if another treatment could be considered. Additionally, she reported that Cardiology had stopped her bumetanide, and outpatient clinic nurse is going to confirm, as they fill her med box for her and most recently Bumex was still apparently being continued. Labs and Pending Lab Test: Laboratory Tests 06/17/20 15:51: Glucometer 216H 06/17/20 20:01: Glucometer 233H 06/18/20 05:15: White Blood Count 5.0, Red Blood Count 2.44L, Hemoglobin 7.7L, Hematocrit 24L, Mean Corpuscular Volume 97, Mean Corpuscular Hemoglobin 32, Mean Corpuscular Hemoglobin Concent 33, Red Cell Distribution Width 13.8, Platelet Count 137, Mean Platelet Volume 10.8, Immature Granulocyte % (Auto) 0, Neutrophils (%) (Auto) 64, Lymphocytes (%) (Auto) 17, Monocytes (%) (Auto) 9, Eosinophils (%) (Auto) 10, Basophils (%) (Auto) 0, Neutrophils # (Auto) 3.2, Lymphocytes # (Auto) 0.8L, Monocytes # (Auto) 0.5, Eosinophils # (Auto) 0.5H, Basophils # (Auto) 0.0, Immature Granulocyte # (Auto) 0.0, Sodium Level 138, Potassium Level 4.1, Chloride Level 111H, Carbon Dioxide Level 20L, Anion Gap 7, Blood Urea Nitrogen 19H, Creatinine 1.60H, Estimat Glomerular Filtration Rate 33, BUN/Creatinine Ratio 12, Glucose Level 173H, Calcium Level 8.6, Corrected Calcium 9.3, Total Bilirubin 0.3, Aspartate Amino Transf (AST/SGOT) 15, Alanine Aminotransferase (ALT/SGPT) 12, Alkaline Phosphatase 64, Ammonia 70H, Total Protein 5.8L, Albumin 3.1L 06/18/20 10:25: Glucometer 231H Microbiology 06/13/20 Blood Culture - Preliminary, Resulted No growth 06/13/20 Influenza Types A,B Antigen (CODIE) - Final, Complete Home Meds Active Lactulose 20 Gm/30 Ml Solution 20 Gm PO BID Reported Vitamin D2 (Ergocalciferol (Vitamin D2)) 1,250 Mcg Capsule 100,000 Units PO WEEK Omeprazole 40 Mg Capsule.dr 40 Mg PO BID Macrobid 100 mg Capsule (Nitrofurantoin Monohyd/M-Cryst) 100 Mg Capsule 1 Tab PO DAILY Levothyroxine (Levothyroxine Sodium) 125 Mcg Capsule 125 Mcg PO DAILY Folic Acid 1 Mg Tablet 1 Mg PO DAILY Novolin N (Insulin NPH Human Isophane) 100 Unit/1 Ml Vial 15 Unit SQ BID Ondansetron HCl 4 Mg Tablet 4 Mg PO DAILY Topiramate 50 Mg Tablet 50 Mg PO BID Xifaxan (Rifaximin) 200 Mg Tablet 600 Mg PO BID TAKES 3 (200MG) TABS Bumetanide 1 Mg Tablet 1 Mg PO DAILY PRN Magox 400 (Magnesium Oxide) 400 Mg Tablet 400 Mg PO BID Zyrtec (Cetirizine HCl) 10 Mg Tablet 10 Mg PO DAILY Assessment/Pt DC Instructions Follow up with Dr. Wilson as noted in D/C instructions. Discharge Diet: ADA Diet Activity as Tolerated: Yes Discharge Physical Examination Allergies: Coded Allergies: Vdyzuae-Adl-Qga Reductase Inhibitor (Verified Allergy, Intermediate, GI UPSET, N/V, 05/18/20) cefadroxil (Verified Allergy, Mild, 05/18/20) Sulfa (Sulfonamide Antibiotics) (Verified Allergy, Unknown, 05/18/20) oxycodone (Verified Allergy, Unknown, 05/18/20) "makes skin crawl" General Appearance: No Apparent Distress, WD/WN Respiratory: Lungs Clear, Normal Breath Sounds Cardiovascular: Regular Rate, Rhythm, No Murmur Gastrointestinal: Normal Bowel Sounds, Non Tender, Soft Extremity: No Pedal Edema Skin: Normal Color, Warm/Dry Neurologic/Psychiatric: Alert, Oriented x3, Other (mild asterixis) Copy Copies To 1: JAMES WILSON MD Clinical Quality Measures DVT/VTE Risk/Contraindication: Risk Factor Score Per Nursin RFS Level Per Nursing on Admit: 3=High Contraindications-Pharm: Other *list below* Other: chronic GIB life theratening TOMASA CARMONA MD Jun 18, 2020 15:06
== END 2020-06-18 15:00 | disposition home or self-care (01) | DRG 442 ==
LOC: EDUNIT# 19:27 → ER 19:28 → 4TH 06-14 00:01
PROVIDERS: ADMIT Internal Medicine; ATTEND Family Medicine
DX: K72.90 Hepatic failure, unspecified without coma (principal); K76.6 Portal hypertension; E72.20 Disorder of urea cycle metabolism, unspecified; Z88.2 Allergy status to sulfonamides; Z88.5 Allergy status to narcotic agent; Z87.891 Personal history of nicotine dependence; Z95.1 Presence of aortocoronary bypass graft; Z95.5 Presence of coronary angioplasty implant and graft; I25.2 Old myocardial infarction; I50.9 Heart failure, unspecified; I25.10 Atherosclerotic heart disease of native coronary artery without angina pectoris; I11.0 Hypertensive heart disease with heart failure; K57.90 Diverticulosis of intestine, part unspecified, without perforation or abscess without bleeding; G89.29 Other chronic pain; M54.9 Dorsalgia, unspecified; E66.9 Obesity, unspecified; E11.22 Type 2 diabetes mellitus with diabetic chronic kidney disease; E03.9 Hypothyroidism, unspecified; K21.9 Gastro-esophageal reflux disease without esophagitis; D64.9 Anemia, unspecified; N18.9 Chronic kidney disease, unspecified; E78.00 Pure hypercholesterolemia, unspecified; F41.9 Anxiety disorder, unspecified; L40.9 Psoriasis, unspecified; I48.0 Paroxysmal atrial fibrillation; K31.819 Angiodysplasia of stomach and duodenum without bleeding; D50.9 Iron deficiency anemia, unspecified; E11.65 Type 2 diabetes mellitus with hyperglycemia; Z68.37 Body mass index [BMI] 37.0-37.9, adult; K74.60 Unspecified cirrhosis of liver
CPT/HCPCS: 36415; 51702; 70450; 71045; 71250; 72125; 72128; 72131; 73552; 73590; 74176; 80053; 80306; 80320; 80329; 81000; 82140; 82150; 82550; 82553; 82805; 82962; 83605; 83615; 83690; 83735; 83874; 84145; 84439; 84443; 84484; 85025; 85379; 85610; 85652; 85730; 86141; 87040; 87635; 87804; 93005; 93041; 94760; 96360; 96361

== ENCOUNTER 2020-06-25 15:12 | Emergency (ER) | payer MEDICARE ==
[~2020-06-25] VITALS: Ht 162 cm; Wt 99.6 kg
[~2020-06-25 15:12] MED LIST changes: +CLOB10TA3 PO; +ERGO50006 PO; +LEVO125C4 PO; +NF-RIFA200 PO; +ONDA-105 PO; +TOPI50TA13 PO
--- NOTE | 2020-06-25 15:24 | ED Fall/Injury ---
General Chief Complaint: Trauma-Non Activation Stated Complaint: FALL Source: patient Exam Limitations: no limitations History of Present Illness Date Seen by Provider: Jun 25, 2020 Time Seen by Provider: 15:21 Initial Comments To ER by EMS from home with reports of a fall. She was trying to get up out of bed when she fell down. She complains of some neck pain some right shoulder pain some thoracic back pain and some lumbar back pain. No chest or abdomen pa in. Occurred: this afternoon Severity: moderate Injuries/Pain Location: neck, upper extremity, back Context: slipped Loss of Consciousness: no loss of consciousness Associated Symptoms (Fall): Neck Pain Allergies and Home Medications Allergies Coded Allergies: Mrezxbw-Zof-Npk Reductase Inhibitor (Verified Allergy, Intermediate, GI UPSET, N/V, 05/18/20) cefadroxil (Verified Allergy, Mild, 05/18/20) Sulfa (Sulfonamide Antibiotics) (Verified Allergy, Unknown, 05/18/20) oxycodone (Verified Allergy, Unknown, 05/18/20) "makes skin crawl" Home Medications Bumetanide 1 Mg Tablet, 1 MG PO DAILY PRN for FLUID RETENTION, (Reported) Cetirizine HCl 10 Mg Tablet, 10 MG PO DAILY, (Reported) Ergocalciferol (Vitamin D2) 1,250 Mcg Capsule, 100,000 UNITS PO WEEK, (Reported) Folic Acid 1 Mg Tablet, 1 MG PO DAILY, (Reported) Insulin NPH Human Isophane 100 Unit/1 Ml Vial, 15 UNIT SQ BID, (Reported) Lactulose 20 Gm/30 Ml Solution, 20 GM PO BID Prescribed by: TOMASA CARMONA on 06/18/20 1103 Levothyroxine Sodium 125 Mcg Capsule, 125 MCG PO DAILY, (Reported) Magnesium Oxide 400 Mg Tablet, 400 MG PO BID, (Reported) Nitrofurantoin Monohyd/M-Cryst 100 Mg Capsule, 1 TAB PO DAILY, (Reported) Omeprazole 40 Mg Capsule.dr, 40 MG PO BID, (Reported) Ondansetron HCl 4 Mg Tablet, 4 MG PO DAILY, (Reported) Rifaximin 200 Mg Tablet, 600 MG PO BID, (Reported) TAKES 3 (200MG) TABS Topiramate 50 Mg Tablet, 50 MG PO BID, (Reported) Patient Home Medication List Home Medication List Reviewed: Yes Review of Systems Review of Systems Constitutional: see HPI Eyes: No Symptoms Reported Ears, Nose, Mouth, Throat: no symptoms reported Respiratory: no symptoms reported Cardiovascular: no symptoms reported Musculoskeletal: see HPI, back pain, neck pain Skin: no symptoms reported Psychiatric/Neurological: No Symptoms Reported Past Tnaswgk-Wiqflf-Ihwrzc Hx Patient Social History Type Used: Cigarettes Former Smoker, Quit: May 20, 1980 2nd Hand Smoke Exposure: No Recent Hopitalizations: Yes (FOR PORT PLACEMENT) Immunizations Up To Date Tetanus Booster (TDap): Unknown PED Vaccines UTD: Yes Date of Pneumonia Vaccine: May 16, 2019 Date of Influenza Vaccine: Apr 18, 2020 Seasonal Allergies Seasonal Allergies: Yes Past Medical History Surgeries: Yes (PORT RIGHT CHEST) Adenoidectomy, Cardiac, CABG, Coronary Stent, Open Heart Surgery, Orthopedic, Tonsillectomy, Tubal Ligation Respiratory: Yes (LEFT PLEURAL EFFUSION-S/P THORACENTESIS; RESP FAILURE) Pneumonia, Sleep Apnea Currently Using CPAP: No Currently Using BIPAP: No Cardiac: Yes (CHF, STENT X1; CABG 02/16/2018 x 4 @ [facility];NSTEMI X 3) Atrial Fibrillation, Chronic Edema/Swelling, Coronary Artery Disease, Heart Attack, High Cholesterol, Hypertension Neurological: Yes (CHRONIC BASELINE CONFUSION;HEPATIC ENCEPHALOPATHY-MULT EPISODES) Dementia Reproductive Disorders: No Female Reproductive Disorders: Denies TRAIN DIRECTOR History: Menopausal Sexually Transmitted Disease: No HIV/AIDS: No Genitourinary: Yes Bladder Infection, Renal Failure Gastrointestinal: Yes (GAVE-GASTRIC ANTRAL VASCULAR ECTASIA;GASTRITIS;CHR. LIVER DZ/ELEV AMMONIA) Gastroesophageal Reflux, Liver Disease/Jaundice, Gastrointestinal Bleed, Diverticulosis, Hemorrhoids, Polyps Musculoskeletal: Yes (POOR AMBULATION--USES WALKER SINCE CABG; L ANKLE AND KNEE SURGERIES) Degenerate Disk Disease, Arthritis, Chronic Back Pain, Fractures Endocrine: Yes (OBESITY) Diabetes, Insulin dep, Hypothyroidsim HEENT: No Loss of Vision: Denies Hearing Impairment: Denies Cancer: No Psychosocial: Yes Anxiety Integumentary: Yes Psoriasis Blood Disorders: Yes (CHRONIC ANEMIA-GI LOSS/GAVE SYNDROME; MULT TRANSFUSIONS/MULT ANTIBODIES) Adverse Reaction/Blood Tranf: Yes (Antibody JKA) Family Medical History Arthritis G8 BROTHER Completed stroke 19 MOTHER FH: anemia 19 MOTHER FH: lupus G8 SISTER FH: throat cancer 19 FATHER Hypertension G8 SISTER Myocardial infarction 19 MOTHER Thyroid disease 19 MOTHER G8 SISTER Hypertension, Stroke, Other Conditions/Hx PSH: -LEFT ANKLE SURGERY -LEFT KNEE SURGERY -CARDIAC CATHS--STENT X 1 -4 VESSEL CABG AT [facility] 02/16/18 -THORACENTESIS -TONSILLECTOMY/ADENOIDECTOMY -BTL -PORT RIGHT CHEST -LEXISCAN STRESS TEST 03/08/20--NORMAL. EF 70% Physical Exam Vital Signs Vital Signs - First Documented 06/25/20 15:16 Temp 36.5 Pulse 87 Resp 18 B/P (MAP) 134/83 (100) Pulse Ox 95 Capillary Refill : Height, Weight, BMI Height: 5'4.00" Weight: 196lbs. 5.0oz. 89.999842ye; 35.62 BMI Method:Stated General Appearance: WD/WN, no apparent distress, obese, other (Alert and oriented GCS 15. Complains of some neck pain right shoulder pain thoracic back pain and lumbar back pain. No bruising. No abrasions or erythema.) HEENT: PERRL/EOMI, normal ENT inspection Neck: non-tender, full range of motion Respiratory: no respiratory distress, no accessory muscle use Gastrointestinal: normal bowel sounds, non tender, soft Extremities: normal range of motion, non-tender Neurologic/Psychiatric: alert, normal mood/affect, oriented x 3 Skin: normal color, warm/dry Devyn Coma Score Best Eye Response: (4) Open Spontaneously Best Verbal Response: (5) Oriented Best Motor Response: (6) Obeys Commands Devyn Total: 15 Procedures/Interventions Date of ETT Placement: May 30, 2018 Time of ETT Placement: 1330 Progress/Results/Core Measures Results/Orders Lab Results Laboratory Tests Test 06/25/20 16:34 06/25/20 18:05 Range/Units Urine Color YELLOW Urine Clarity CLEAR Urine pH 6.0 5-9 Urine Specific [place] 1.010 L 1.016-1.022 Urine Protein NEGATIVE NEGATIVE Urine Glucose (UA) NEGATIVE NEGATIVE Urine Ketones NEGATIVE NEGATIVE Urine Nitrite NEGATIVE NEGATIVE Urine Bilirubin NEGATIVE NEGATIVE Urine Urobilinogen 0.2 < = 1.0 MG/DL Urine Leukocyte Esterase NEGATIVE NEGATIVE Urine RBC (Auto) NEGATIVE NEGATIVE Urine RBC NONE /HPF Urine WBC 0-2 /HPF Urine Squamous Epithelial Cells 25-50 H /HPF Urine Crystals NONE /LPF Urine Bacteria FEW H /HPF Urine Casts NONE /LPF Urine Mucus NEGATIVE /LPF Urine Yeast FEW H /HPF Urine Culture Indicated NO White Blood Count 6.0 4.3-11.0 10^3/uL Red Blood Count 3.33 L 3.80-5.11 10^6/uL Hemoglobin 10.4 L 11.5-16.0 g/dL Hematocrit 32 L 35-52 % Mean Corpuscular Volume 96 80-99 fL Mean Corpuscular Hemoglobin 31 25-34 pg Mean Corpuscular Hemoglobin Concent 33 32-36 g/dL Red Cell Distribution Width 13.8 10.0-14.5 % Platelet Count 184 130-400 10^3/uL Mean Platelet Volume 10.1 9.0-12.2 fL Immature Granulocyte % (Auto) 0 % Neutrophils (%) (Auto) 67 42-75 % Lymphocytes (%) (Auto) 15 12-44 % Monocytes (%) (Auto) 8 0-12 % Eosinophils (%) (Auto) 9 0-10 % Basophils (%) (Auto) 1 0-10 % Neutrophils # (Auto) 4.0 1.8-7.8 10^3/uL Lymphocytes # (Auto) 0.9 L 1.0-4.0 10^3/uL Monocytes # (Auto) 0.5 0.0-1.0 10^3/uL Eosinophils # (Auto) 0.5 H 0.0-0.3 10^3/uL Basophils # (Auto) 0.0 0.0-0.1 10^3/uL Immature Granulocyte # (Auto) 0.0 0.0-0.1 10^3/uL Prothrombin Time 14.5 12.2-14.7 SEC INR Comment 1.1 0.8-1.4 Sodium Level 143 135-145 MMOL/L Potassium Level 3.7 3.6-5.0 MMOL/L Chloride Level 107 98-107 MMOL/L Carbon Dioxide Level 24 21-32 MMOL/L Anion Gap 12 5-14 MMOL/L Blood Urea Nitrogen 26 H 7-18 MG/DL Creatinine 2.09 H 0.60-1.30 MG/DL Estimat Glomerular Filtration Rate 24 BUN/Creatinine Ratio 12 Glucose Level 137 H 70-105 MG/DL Calcium Level 9.6 8.5-10.1 MG/DL Corrected Calcium 9.6 8.5-10.1 MG/DL Total Bilirubin 0.5 0.1-1.0 MG/DL Aspartate Amino Transf (AST/SGOT) 17 5-34 U/L Alanine Aminotransferase (ALT/SGPT) 11 0-55 U/L Alkaline Phosphatase 87 40-136 U/L Ammonia 55 H 11-32 UMOL/L Total Protein 7.7 6.4-8.2 GM/DL Albumin 4.0 3.2-4.5 GM/DL My Orders Orders - MALLORIE FATIMA APRN Tramadol Tablet (Ultram Tablet) (06/25/20 15:30) Ct Head/Cervical Spine Wo (06/25/20 15:18) Shoulder, Right, 3 Views (06/25/20 15:18) Ct Thoracic/Lumbar Spine Wo (06/25/20 15:18) Ua Culture If Indicated (06/25/20 16:28) Fluconazole Tablet (Ed Only) (Diflucan T (06/25/20 17:15) Cbc With Automated Diff (06/25/20 17:16) Comprehensive Metabolic Panel (06/25/20 17:16) Ammonia (06/25/20 17:16) Protime With Inr (06/25/20 17:16) Lidocaine 1% Inj 20 Ml (Xylocaine 1% Inj (06/25/20 17:22) Ns Iv 500 Ml (Sodium Chloride 0.9%) (06/25/20 19:30) Medications Given in ED Current Medications Medications Dose Ordered Sig/Roberth Route Start Time Stop Time Status Last Admin Dose Admin Fluconazole 150 mg ONCE ONCE PO 06/25/20 17:15 06/25/20 17:16 DC 06/25/20 17:44 150 MG Tramadol HCl 50 mg ONCE ONCE PO 06/25/20 15:30 06/25/20 15:31 DC 06/25/20 15:54 50 MG Vital Signs/I&O 06/25/20 06/25/20 15:16 15:22 Temp 36.5 36.5 Pulse 87 87 Resp 18 18 B/P (MAP) 134/83 (100) 134/83 (100) Pulse Ox 95 95 Departure Communication (Admissions) 1628-c collar off now 1700-patient initially asked the tech how much longer until she could go home. When I went and visited with the patient however she states that she does not think she can take care of herself at home and would like to be admitted. 1924-labs are unremarkable. I will give her 500 mL of normal saline. She does not really have any admission criteria, with hospital as full of Covid as it is I hate to admit her and expose her to multiple sources of infection as these could be devastating to her. Despite her weakness I do feel she would be better off at home. Impression Primary Impression: Fall Additional Impression: Generalized weakness Disposition: HOME, SELF-CARE Condition: Stable Departure-Patient Inst. Decision time for Depature: 16:27 Referrals: JAMES TORRES MD (PCP/Family) Primary Care Physician Patient Instructions: Getting Up From a Fall MALLORIE FATIMA APRN Jun 25, 2020 15:24
--- NOTE | 2020-06-25 15:53 | Diagnostic Imaging Report ---
PROCEDURE: CT thoracic and lumbar spine without contrast. TECHNIQUE: Multiple contiguous axial images were obtained through the thoracic and lumbar spine without the use of intravenous contrast. Sagittal and coronal reformations were then performed.All CT scans use one or more of the following dose optimizing techniques: automated exposure control, MA and/or KvP adjustment based on a patient size and exam type, or iterative reconstruction. INDICATION: Back pain after fall. COMPARISON: CT abdomen and pelvis from 06/13/2020. FINDINGS: Thoracic spine: Normal kyphosis. No traumatic subluxation. No fracture in the vertebral bodies or posterior elements. Intervertebral disc space heights are preserved. No high-grade spinal stenosis. No features of paravertebral hematoma. Visualized aspects of the lungs are clear. Lumbar spine: No fracture or traumatic malalignment. Multilevel degenerative changes cause no more than mild spinal stenosis and mild to moderate neuroforaminal narrowing, greatest at L4-L5. No paravertebral hematoma. No fracture within the visualized aspects of the sacrum. Mild osteoarthritis of bilateral SI joints. No retroperitoneal hemorrhage. IMPRESSION: 1. No fracture or traumatic malalignment in the thoracic and lumbar spine. 2. Multilevel degenerative changes in the lumbar spine are stable in appearance since prior CT. No high-grade spinal stenosis. Dictated by: Dictated on workstation # [id number]
--- NOTE | 2020-06-25 15:55 | Diagnostic Imaging Report ---
PROCEDURE: CT head and CT cervical spine without contrast. TECHNIQUE: Multiple contiguous axial images were obtained through the brain and cervical spine without the use of intravenous contrast. Sagittal and coronal reformations through the cervical spine were then performed. Auto Exposure Controls were utilized during the CT exam to meet ALARA standards for radiation dose reduction. INDICATION: Fall. Neck pain. Injury. COMPARISON: None. FINDINGS: CT HEAD: The ventricles and cortical sulci are diffusely prominent, compatible with age-related volume loss. There are confluent areas of abnormal, low attenuation in the periventricular white matter. This is consistent with chronic small vessel ischemic changes. There is no midline shift or mass-effect. No acute intra-axial hemorrhage is seen. There are no abnormal areas of increased or decreased density to suggest acute hemorrhage or edema. No extra-axial masses or collections are present. The bony calvarium is intact. The visualized paranasal sinuses are unremarkable. The mastoid air cells are clear. CT CERVICAL SPINE: Evaluation of the static alignment shows straightening of normal lordotic curvature. Findings may relate to patient positioning, as well as spasm. There is no significant ronda or retrolisthesis. There is no evidence of jumped facets. Vertebral body heights are maintained. There is no acute fracture. No bony fragments are seen within the spinal canal. There are multilevel degenerative changes consistent with intervertebral disc height loss with anterior and posterior disc osteophyte complex formations. These changes appear greatest at C4-C5 and C6-C7 levels. Note is made that there does appear to be prominent right paracentric posterior disc protrusion at C4-C5. Pre and paravertebral soft tissue structures are unremarkable. There is calcified carotid atherosclerosis. Included portions of the lung apices are clear. IMPRESSION: 1. No acute intracranial abnormality. No CT evidence of mass, acute infarct or intracranial hemorrhage. 2. Chronic small vessel ischemic changes in deep white matter. 3. No acute fracture or dislocation of the cervical spine. 4. Moderate multilevel degenerative changes, greatest at C4-C5 and C6-C7. Again, there is prominent right paracentric posterior disc protrusion at C4-C5. Correlation with acute-onset ipsilateral radiculopathy is recommended. If further evaluation is indicated, MRI is advised. Dictated by: Dictated on workstation # [id number]
--- NOTE | 2020-06-25 15:59 | Diagnostic Imaging Report ---
EXAMINATION: Right shoulder at 03:44 p.m. INDICATION: Fell, shoulder pain. TECHNIQUE: Three views were obtained. COMPARISON: There are no prior right shoulder studies available for comparison. FINDINGS: There is no fracture, dislocation, or acute bony abnormality identified. There is mild degenerative disease of the glenohumeral and acromioclavicular joints. The soft tissues are unremarkable. The right-sided Port-A-Cath seen on the prior chest exam of 06/13/2020 is again evident and seems similar in position. IMPRESSION: There is no evidence for an acute bony abnormality. Dictated by: Dictated on workstation # [id number]
[2020-06-25 16:40] LABS: BILIRUBIN,URINE NEGATIVE (NEGATIVE); CLARITY,URINE CLEAR; COLOR,URINE YELLOW; GLUCOSE, URINE (UA) NEGATIVE (NEGATIVE); KETONES,URINE NEGATIVE (NEGATIVE); LEUKOCYTE ESTERASE ,URINE NEGATIVE (NEGATIVE); NITRITE,URINE NEGATIVE (NEGATIVE); PROTEIN,URINE NEGATIVE (NEGATIVE)
[2020-06-25 16:58] LABS: BACTERIA,URINE FEW /HPF; SQUAMOUS EPITHELIAL CELL,UR 25-50 /HPF
[2020-06-25 16:59] LABS: WBC,URINE 0-2 /HPF; YEAST,URINE FEW /HPF
[2020-06-25] MEDS ORDERED: FLUCONAZOLE 150 MG TABLET (ED ONLY) PO ONE (17:15)
[2020-06-25] MEDS ORDERED: LIDOCAINE 1% INJ 20 ML 20 ML VIAL ONE (17:22)
[2020-06-25 18:16] LABS: BASOPHILS % (AUTO) 1 % (0-10); EOSINOPHILS # (AUTO) 0.5 10^3/uL (0.0-0.3); EOSINOPHILS % (AUTO) 9 % (0-10); HEMATOCRIT 32 % (35-52); HEMOGLOBIN 10.4 g/dL (11.5-16.0); LYMPHOCYTES # (AUTO) 0.9 10^3/uL (1.0-4.0); LYMPHOCYTES % (AUTO) 15 % (12-44); MEAN CORPUSCULAR HEMOGLOBIN 31 pg (25-34); MEAN CORPUSCULAR HGB CONC 33 g/dL (32-36); MEAN CORPUSCULAR VOLUME 96 fL (80-99); MEAN PLATELET VOLUME 10.1 fL (9.0-12.2); MONOCYTES # (AUTO) 0.5 10^3/uL (0.0-1.0); MONOCYTES % (AUTO) 8 % (0-12); NEUTROPHILS % (AUTO) 67 % (42-75); PLATELET COUNT 184 10^3/uL (130-400)
[2020-06-25 18:40] LABS: POTASSIUM 3.7 MMOL/L (3.6-5.0)
[2020-06-25 18:41] LABS: CALCIUM 9.6 MG/DL (8.5-10.1)
[2020-06-25 18:42] LABS: TOTAL PROTEIN 7.7 GM/DL (6.4-8.2)
[2020-06-25 18:44] LABS: BILIRUBIN,TOTAL 0.5 MG/DL (0.1-1.0); INR 1.1 (0.8-1.4); PROTHROMBIN TIME PATIENT 14.5 SEC (12.2-14.7)
[2020-06-25 18:46] LABS: CREATININE SERUM 2.09 MG/DL (0.60-1.30)
--- NOTE | 2020-06-25 19:24 | NUR ---
Patient awake and alert, resting in bed. Pt given more water to drink per request. Pt denies any other needs.
[2020-06-25] MEDS ORDERED: NS IV 500 ML 500 ML IV SCH (19:30)
[2020-06-25 20:35] VITALS: BP 129/59
== END 2020-06-25 20:37 | disposition home or self-care (01) ==
LOC: EDUNIT# 15:12 → ER 15:13
DX: R53.1 Weakness (principal); E11.9 Type 2 diabetes mellitus without complications; K21.9 Gastro-esophageal reflux disease without esophagitis; I25.2 Old myocardial infarction; I10 Essential (primary) hypertension; E03.9 Hypothyroidism, unspecified; E66.9 Obesity, unspecified; Z88.5 Allergy status to narcotic agent; Z88.2 Allergy status to sulfonamides; Z88.1 Allergy status to other antibiotic agents; Z88.8 Allergy status to other drugs, medicaments and biological substances; Z87.891 Personal history of nicotine dependence; Z95.5 Presence of coronary angioplasty implant and graft; Z95.1 Presence of aortocoronary bypass graft; Z82.61 Family history of arthritis; Z82.49 Family history of ischemic heart disease and other diseases of the circulatory system; Z80.2 Family history of malignant neoplasm of other respiratory and intrathoracic organs; Z79.890 Hormone replacement therapy; Z68.35 Body mass index [BMI] 35.0-35.9, adult; Z79.4 Long term (current) use of insulin
CPT/HCPCS: 36415; 70450; 72125; 72128; 72131; 73030; 80053; 81000; 82140; 85025; 85610

== ENCOUNTER 2020-06-27 05:50 | Observation (INO) | payer MEDICARE ==
[~2020-06-27] VITALS: Ht 162.6 cm; Wt 99.2 kg
[~2020-06-27 05:50] MED LIST changes: -FOLI1TAB24 PO; +FOLI1TAB33 PO; +TIZA-169 PO; -TIZA2TAB7 PO
--- NOTE | 2020-06-27 06:14 | ED Fall/Injury ---
General Chief Complaint: General Problems/Pain Stated Complaint: WEAKNESS Nursing Triage Note: brought in by [facility] for generalized weakness, multiple falls. reports slid out of bed this am approx. 0400. c/o continued right shoulder/lower back pain from previous fall. Source: patient, EMS Exam Limitations: no limitations History of Present Illness Date Seen by Provider: Jun 27, 2020 Time Seen by Provider: 05:59 Initial Comments Patient presents to the ER by EMS from home with chief complaint of generalized weakness and while transferring out of her bed to the bathroom she slid out of the bed and fell onto her back and right shoulder. 06/25/20 she had a similar fall and complaints of pain in her upper and lower back and right shoulder. She had imaging done as well as lab and urine which was unremarkable. EMS reports her says he wants her put in a shelter because he can no longer take care of her. He did not give any history that he had initiated admission to a shelter to EMS. She rates her pain as an 8 out of 10. She denies any shortness of breath fever cough chills chest pain nausea vomiting loss of consciousness nor striking her head. She is not on any blood thinners because of a history of GAVE, cirrhosis, hepatitis B. She is on insulin for her diabetes. EMS reports a blood sugar in the 140s. Patient was admitted June 14 and stayed for about 5 days. The stay was related to delirium which was felt to be connected to recently starting a new benzodiazepine for an abnormal EEG 2 weeks prior. Also there was concern that she was not using her lactulose consistently. Patient was on bumetanide and a couple days ago received half a liter of fluids because she was dry. reveals she is had dementia for the past several years and he has been her sole caregiver at home. He is wheelchair-bound. He states she was recently admitted because of confusion and sent home but he has not been order to care for her very well. He states she is taking her medications as prescribed. Primary care by Dr. Torres and known to Dr. Haywood Allergies and Home Medications Allergies Coded Allergies: Edovypz-Iih-Wkh Reductase Inhibitor (Verified Allergy, Intermediate, GI UPSET, N/V, 05/18/20) cefadroxil (Verified Allergy, Mild, 05/18/20) Sulfa (Sulfonamide Antibiotics) (Verified Allergy, Unknown, 05/18/20) oxycodone (Verified Allergy, Unknown, 05/18/20) "makes skin crawl" Home Medications Bumetanide 1 Mg Tablet, 1 MG PO DAILY PRN for FLUID RETENTION, (Reported) Cetirizine HCl 10 Mg Tablet, 10 MG PO DAILY, (Reported) Ergocalciferol (Vitamin D2) 1,250 Mcg Capsule, 100,000 UNITS PO WEEK, (Reported) Folic Acid 1 Mg Tablet, 1 MG PO DAILY, (Reported) Insulin NPH Human Isophane 100 Unit/1 Ml Vial, 15 UNIT SQ BID, (Reported) Lactulose 20 Gm/30 Ml Solution, 20 GM PO BID Prescribed by: TOMASA CARMONA on 06/18/20 1103 Levothyroxine Sodium 125 Mcg Capsule, 125 MCG PO DAILY, (Reported) Magnesium Oxide 400 Mg Tablet, 400 MG PO BID, (Reported) Nitrofurantoin Monohyd/M-Cryst 100 Mg Capsule, 1 TAB PO DAILY, (Reported) Omeprazole 40 Mg Capsule.dr, 40 MG PO BID, (Reported) Ondansetron HCl 4 Mg Tablet, 4 MG PO DAILY, (Reported) Rifaximin 200 Mg Tablet, 600 MG PO BID, (Reported) TAKES 3 (200MG) TABS Topiramate 50 Mg Tablet, 50 MG PO BID, (Reported) Patient Home Medication List Home Medication List Reviewed: Yes Review of Systems Review of Systems Constitutional: No chills, No fever Eyes: Denies Blindness, Denies Blurred Vision Ears, Nose, Mouth, Throat: denies ear pain, denies ear discharge Respiratory: No cough, No short of breath Cardiovascular: No edema, No palpitations Gastrointestinal: No abdominal pain, No constipation, No nausea, No vomiting Genitourinary: No discharge, No dysuria Musculoskeletal: back pain, joint pain (r shoulder) All Other Systems Reviewed Negative Unless Noted: Yes Past Irbpkom-Sbutff-Jrdhgb Hx Patient Social History Alcohol Use: Denies Use Smoking Status: Former Smoker Type Used: Cigarettes Former Smoker, Quit: May 20, 1980 2nd Hand Smoke Exposure: No Recent Infectious Disease Expo: No Recent Hopitalizations: No Immunizations Up To Date Tetanus Booster (TDap): Unknown PED Vaccines UTD: Yes Date of Pneumonia Vaccine: May 16, 2019 Date of Influenza Vaccine: Apr 18, 2020 Seasonal Allergies Seasonal Allergies: Yes Past Medical History Surgeries: Yes (PORT RIGHT CHEST) Adenoidectomy, Cardiac, CABG, Coronary Stent, Open Heart Surgery, Orthopedic, Tonsillectomy, Tubal Ligation Respiratory: Yes (LEFT PLEURAL EFFUSION-S/P THORACENTESIS; RESP FAILURE) Pneumonia, Sleep Apnea Currently Using CPAP: No Currently Using BIPAP: No Cardiac: Yes (CHF, STENT X1; CABG 02/16/2018 x 4 @ [facility];NSTEMI X 3) Atrial Fibrillation, Chronic Edema/Swelling, Coronary Artery Disease, Heart Attack, High Cholesterol, Hypertension Neurological: Yes (CHRONIC BASELINE CONFUSION;HEPATIC ENCEPHALOPATHY-MULT EPISODES) Dementia : No Reproductive Disorders: No Female 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 LIVER DZ/ELEV AMMONIA) Gastroesophageal Reflux, Liver Disease/Jaundice, Gastrointestinal Bleed, Diverticulosis, Hemorrhoids, Polyps Musculoskeletal: Yes (POOR AMBULATION--USES WALKER SINCE CABG; L ANKLE AND KNEE SURGERIES) Degenerate Disk Disease, Arthritis, Chronic Back Pain, Fractures Endocrine: Yes (OBESITY) Diabetes, Insulin dep, Hypothyroidsim HEENT: No Loss of Vision: Denies Hearing Impairment: Denies Cancer: No Psychosocial: Yes Anxiety Integumentary: Yes Psoriasis Blood Disorders: Yes (CHRONIC ANEMIA-GI LOSS/GAVE SYNDROME; MULT TRANSFUSIONS/MULT ANTIBODIES) Adverse Reaction/Blood Tranf: Yes (Antibody JKA) Family Medical History Arthritis G8 BROTHER Completed stroke 19 MOTHER FH: anemia 19 MOTHER FH: lupus G8 SISTER FH: throat cancer 19 FATHER Hypertension G8 SISTER Myocardial infarction 19 MOTHER Thyroid disease 19 MOTHER G8 SISTER Hypertension, Stroke, Other Conditions/Hx PSH: -LEFT ANKLE SURGERY -LEFT KNEE SURGERY -CARDIAC CATHS--STENT X 1 -4 VESSEL CABG AT [facility] 02/16/18 -THORACENTESIS -TONSILLECTOMY/ADENOIDECTOMY -BTL -PORT RIGHT CHEST -LEXISCAN STRESS TEST 03/08/20--NORMAL. EF 70% Physical Exam Vital Signs Vital Signs - First Documented 06/27/20 05:55 Temp 36.6 Pulse 78 Resp 16 B/P (MAP) 117/58 (77) Pulse Ox 98 O2 Delivery Room Air Capillary Refill : Less Than 3 Seconds Height, Weight, BMI Height: 5'4.00" Weight: 196lbs. 5.0oz. 89.394068mm; 37.00 BMI Method:Stated General Appearance: mild distress, obese HEENT: PERRL/EOMI, normal ENT inspection, TMs normal (Negative for knight sign, hemotympanum. Atraumatic cranial exam), pharynx normal Neck: non-tender, full range of motion, supple, normal inspection Cardiovascular: normal peripheral pulses, regular rate, rhythm Respiratory: lungs clear, normal breath sounds, no respiratory distress, no accessory muscle use Peripheral Pulses: 2+ Radial Pulses (R), 2+ Radial Pulses (L) Gastrointestinal: non tender, soft Back: no CVA tenderness, vertebral tenderness (Midline vertebral tenderness when prompted but not to initial direct palpation. No deformity step-off crepitus. 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, no motor/sensory deficits, alert, normal mood/affect, oriented x 3 Skin: normal color, warm/dry Procedures/Interventions Date of ETT Placement: May 30, 2018 Time of ETT Placement: 1330 Progress/Results/Core Measures Results/Orders Lab Results Laboratory Tests Test 06/27/20 06:50 06/27/20 07:00 06/27/20 07:05 Range/Units White Blood Count 6.5 4.3-11.0 10^3/uL Red Blood Count 3.00 L 3.80-5.11 10^6/uL Hemoglobin 9.2 L 11.5-16.0 g/dL Hematocrit 29 L 35-52 % Mean Corpuscular Volume 96 80-99 fL Mean Corpuscular Hemoglobin 31 25-34 pg Mean Corpuscular Hemoglobin Concent 32 32-36 g/dL Red Cell Distribution Width 13.6 10.0-14.5 % Platelet Count 167 130-400 10^3/uL Mean Platelet Volume 10.4 9.0-12.2 fL Immature Granulocyte % (Auto) 0 % Neutrophils (%) (Auto) 65 42-75 % Lymphocytes (%) (Auto) 16 12-44 % Monocytes (%) (Auto) 11 0-12 % Eosinophils (%) (Auto) 7 0-10 % Basophils (%) (Auto) 1 0-10 % Neutrophils # (Auto) 4.3 1.8-7.8 10^3/uL Lymphocytes # (Auto) 1.0 1.0-4.0 10^3/uL Monocytes # (Auto) 0.7 0.0-1.0 10^3/uL Eosinophils # (Auto) 0.5 H 0.0-0.3 10^3/uL Basophils # (Auto) 0.0 0.0-0.1 10^3/uL Immature Granulocyte # (Auto) 0.0 0.0-0.1 10^3/uL Sodium Level 143 135-145 MMOL/L Potassium Level 3.6 3.6-5.0 MMOL/L Chloride Level 108 H 98-107 MMOL/L Carbon Dioxide Level 24 21-32 MMOL/L Anion Gap 11 5-14 MMOL/L Blood Urea Nitrogen 24 H 7-18 MG/DL Creatinine 2.12 H 0.60-1.30 MG/DL Estimat Glomerular Filtration Rate 24 BUN/Creatinine Ratio 11 Glucose Level 192 H 70-105 MG/DL Calcium Level 9.0 8.5-10.1 MG/DL Corrected Calcium 9.3 8.5-10.1 MG/DL Total Bilirubin 0.4 0.1-1.0 MG/DL Aspartate Amino Transf (AST/SGOT) 14 5-34 U/L Alanine Aminotransferase (ALT/SGPT) 11 0-55 U/L Alkaline Phosphatase 77 40-136 U/L Total Protein 6.8 6.4-8.2 GM/DL Albumin 3.6 3.2-4.5 GM/DL Urine Color YELLOW Urine Clarity CLEAR Urine pH 5.0 5-9 Urine Specific [place] 1.015 L 1.016-1.022 Urine Protein NEGATIVE NEGATIVE Urine Glucose (UA) NEGATIVE NEGATIVE Urine Ketones NEGATIVE NEGATIVE Urine Nitrite NEGATIVE NEGATIVE Urine Bilirubin NEGATIVE NEGATIVE Urine Urobilinogen 0.2 < = 1.0 MG/DL Urine Leukocyte Esterase NEGATIVE NEGATIVE Urine RBC (Auto) NEGATIVE NEGATIVE Urine RBC NONE /HPF Urine WBC RARE /HPF Urine Squamous Epithelial Cells 5-10 /HPF Urine Crystals NONE /LPF Urine Bacteria NEGATIVE /HPF Urine Casts PRESENT /LPF Urine Hyaline Casts 25-50 H /LPF Urine Mucus NEGATIVE /LPF Urine Culture Indicated NO My Orders Orders - KENNEY,HUSSAIN J Ct Head/Cervical Spine Wo (06/27/20 06:08) Ct Thoracic/Lumbar Spine Wo (06/27/20 06:08) Chest 1 View, Ap/Pa Only (06/27/20 06:08) Ua Culture If Indicated (06/27/20 06:14) Hydrocodone/Apap 5/325 Tablet (Lortab 5 (06/27/20 06:30) Cbc With Automated Diff (06/27/20 06:40) Comprehensive Metabolic Panel (06/27/20 06:40) Covid 19 Inhouse Test (06/27/20 07:01) Medications Given in ED Current Medications Medications Dose Ordered Sig/Roberth Route Start Time Stop Time Status Last Admin Dose Admin Acetaminophen/ Hydrocodone Bitart 1 tab ONCE ONCE PO 06/27/20 06:30 06/27/20 06:31 DC 06/27/20 06:43 1 TAB Vital Signs/I&O 06/27/20 06/27/20 05:55 06:43 Temp 36.6 36.6 Pulse 78 Resp 16 B/P (MAP) 117/58 (77) Pulse Ox 98 O2 Delivery Room Air Blood Pressure Mean: 77 Progress Progress Note #1: Time: 06:26 Progress Note Generalized weakness thought to be related to slow physical decline. Plan to scan her back and her head and C-spine for fractures. The ecchymoses on her back is probably from her fall from 2 days ago. [place] 5 mg for her pain since she takes tramadol regularly. She just had labs and urine 2 days ago and she does continue to take Macrobid for chronic UTIs but has no new symptoms. Previous physical therapy record indicated she would benefit from skilled PT. Plan to recheck basic labs for her blood sugar and hydration status. After her imaging is done we will discuss with her /caregiver disposition. She states she is not eager to go to a shelter however she realizes her is having difficulty taking care of her. We may be able to consult with inpatient physical therapy or a senior care rehab unit Progress Note #2: Time: 08:20 Progress Note Patient still wishes to be a full code. We did discuss the theory of comfort care versus seeking life-prolonging treatment as well as allowing natural . We discussed this with the as well and updated him on the plan to seek inpatient rehabilitation for physical therapy and Occupational Therapy. He is in agreement with the plan. We explained given her significant comorbidities of coronary disease, liver disease that resuscitative attempts would only merit a very slim margin of any meaningful neurologic recovery. They acknowledge this and he wishes to honor her desire to be a full code at this time. We will facilitate this. COVID-19 swab was obtained for screening purposes. Patient has not had any symptoms. She had negative PCR and rapid swab 2 weeks ago. Diagnostic Imaging Diagonstic Imaging: Xray Plain Films/CT/US/NM/MRI: chest Comments NAME: YOLETTE PISANO [facility] REC#: [id number] PT STATUS: REG ER : 1955 PHYSICIAN: HUSSAIN MOULTON MD ADMIT DATE: 06/27/20/ER Draft Date of Exam:06/27/20 CHEST 1 VIEW, AP/PA ONLY INDICATION: Fall, chest pain Upright chest shows heart size and vascularity to be upper normal. There is left basilar atelectasis. No mass or infiltrate is seen. There is no effusion or pneumothorax. There are changes of prior CABG. Port-A-Cath is present with tip in the SVC. There is no acute bony abnormality. IMPRESSION: Left basilar atelectasis. The chest is stable compared to a study from 06/13/2020. Dictated on workstation # [id number] Dict: 06/27/20 0645 Trans: 06/27/20 0648 [facility] [id number] Interpreted by: GISELA ENG MD Electronically signed by: Reviewed: Reviewed by Me Diagonstic Imaging: CT (Without IV contrast) Plain Films/CT/US/NM/MRI: c-spine, head Comments NAME: YOLETTE PISANO [facility] REC#: [id number] PT STATUS: REG ER : 1955 PHYSICIAN: HUSSAIN MOULTON MD ADMIT DATE: 06/27/20/ER Draft Date of Exam:06/27/20 CT HEAD/CERVICAL SPINE WO PROCEDURE: CT head and CT cervical spine without contrast. TECHNIQUE: Multiple contiguous axial images were obtained through the brain and cervical spine without the use of intravenous contrast. Sagittal and coronal reformations through the cervical spine were then performed. Auto Exposure Controls were utilized during the CT exam to meet ALARA standards for radiation dose reduction. INDICATION: Fall. Head and neck pain The ventricles are normal in size, shape and position. There is no acute parenchymal hemorrhage, edema or mass. There is no extra-axial mass or hemorrhage. There is no acute bony abnormality. There is normal height and alignment of the cervical vertebral bodies. There are mild degenerative changes present. No spinal canal encroachment is seen. No fracture or other acute abnormality is seen. IMPRESSION: Normal CT of the head with no change from 06/25/2020. CT of the cervical spine shows degenerative changes with no acute abnormality and no change from 06/25/2020. Dictated on workstation # [id number] Dict: 06/27/20 0646 Trans: 06/27/2056 JEISON [id number] Interpreted by: GISELA ENG MD Electronically signed by: Reviewed: Reviewed by Me Diagonstic Imaging: CT Plain Films/CT/US/NM/MRI: other (Thoracolumbar spine) Comments NAME: YOLETTE PISANO [facility] REC#: [id number] PT STATUS: REG ER : 1955 PHYSICIAN: HUSSAIN MOULTON MD ADMIT DATE: 06/27/20/ER Draft Date of Exam:06/27/20 CT THORACIC/LUMBAR SPINE WO PROCEDURE: CT thoracic and lumbar spine without contrast. TECHNIQUE: Multiple contiguous axial images were obtained through the thoracic and lumbar spine without the use of intravenous contrast. Sagittal and coronal reformations were then performed. All CT scans use one or more of the following dose optimizing techniques: automated exposure control, MA and/or KvP adjustment based on a patient size and exam type, or iterative reconstruction. INDICATION: Fall, back pain. Weakness There is normal height and alignment of the thoracolumbar vertebral bodies. There is mild spondylosis at the thoracic level. There is no spinal canal encroachment. There is no fracture. Disc space narrowing with degenerative disc and facet disease seen in the lumbar spine similar to the 06/25/2020 CT. No fracture or other acute abnormality is seen. IMPRESSION: There are degenerative changes present with no acute abnormality seen. Dictated on workstation # [id number] Dict: 06/27/20 0651 Trans: 06/27/20 0655 [facility] [id number] Interpreted by: GISELA ENG MD Electronically signed by: Reviewed: Reviewed by Me Departure Communication (Admissions) Time/Spoke to Admitting Phy: 06:45 Dr. Morrell agrees to observe the patient with a consult to physical therapy and Occupational Therapy as well as social secretary to look for placement into skilled rehab. She would like a screening COVID-19 swab. Impression Primary Impression: Physical debility Additional Impressions: Dementia Qualified Codes: F03.90 - Unspecified dementia without behavioral disturbance Frequent falls Back pain Qualified Codes: M54.5 - Low back pain Right shoulder pain Qualified Codes: M25.511 - Pain in right shoulder Traumatic ecchymosis of rib Qualified Codes: S20.20XA - Contusion of thorax, unspecified, initial encounter Disposition: ADMITTED INPATIENT Condition: Stable Admissions Decision to Admit Reason: Admit from ER (General) Decision to Admit/Date: Jun 27, 2020 Time/Decision to Admit Time: 06:45 Departure-Patient Inst. Referrals: JAMES TORRES MD (PCP/Family) Primary Care Physician HUSSAIN MOULTON Jun 27, 2020 06:14
[2020-06-27] MEDS ORDERED: fentaNYL INJECTION 100 MCG/2 ML AMP IVP ONE (06:15)
[2020-06-27] MEDS ORDERED: HYDROcodone/APAP 5 MG/325 MG (LORTAB) TAB PO ONE (06:30)
--- NOTE | 2020-06-27 06:48 | Diagnostic Imaging Report ---
INDICATION: Fall, chest pain Upright chest shows heart size and vascularity to be upper normal. There is left basilar atelectasis. No mass or infiltrate is seen. There is no effusion or pneumothorax. There are changes of prior CABG. Port-A-Cath is present with tip in the SVC. There is no acute bony abnormality. IMPRESSION: Left basilar atelectasis. The chest is stable compared to a study from 06/13/2020. Dictated by: Dictated on workstation # [id number]
--- NOTE | 2020-06-27 06:56 | Diagnostic Imaging Report ---
PROCEDURE: CT thoracic and lumbar spine without contrast. TECHNIQUE: Multiple contiguous axial images were obtained through the thoracic and lumbar spine without the use of intravenous contrast. Sagittal and coronal reformations were then performed. All CT scans use one or more of the following dose optimizing techniques: automated exposure control, MA and/or KvP adjustment based on a patient size and exam type, or iterative reconstruction. INDICATION: Fall, back pain. Weakness There is normal height and alignment of the thoracolumbar vertebral bodies. There is mild spondylosis at the thoracic level. There is no spinal canal encroachment. There is no fracture. Disc space narrowing with degenerative disc and facet disease seen in the lumbar spine similar to the 06/25/2020 CT. No fracture or other acute abnormality is seen. IMPRESSION: There are degenerative changes present with no acute abnormality seen. Dictated by: Dictated on workstation # [id number]
--- NOTE | 2020-06-27 06:56 | Diagnostic Imaging Report ---
PROCEDURE: CT head and CT cervical spine without contrast. TECHNIQUE: Multiple contiguous axial images were obtained through the brain and cervical spine without the use of intravenous contrast. Sagittal and coronal reformations through the cervical spine were then performed. Auto Exposure Controls were utilized during the CT exam to meet ALARA standards for radiation dose reduction. INDICATION: Fall. Head and neck pain The ventricles are normal in size, shape and position. There is no acute parenchymal hemorrhage, edema or mass. There is no extra-axial mass or hemorrhage. There is no acute bony abnormality. There is normal height and alignment of the cervical vertebral bodies. There are mild degenerative changes present. No spinal canal encroachment is seen. No fracture or other acute abnormality is seen. IMPRESSION: Normal CT of the head with no change from 06/25/2020. CT of the cervical spine shows degenerative changes with no acute abnormality and no change from 06/25/2020. Dictated by: Dictated on workstation # [id number]
[2020-06-27 07:03] LABS: BASOPHILS % (AUTO) 1 % (0-10); EOSINOPHILS # (AUTO) 0.5 10^3/uL (0.0-0.3); EOSINOPHILS % (AUTO) 7 % (0-10); HEMATOCRIT 29 % (35-52); HEMOGLOBIN 9.2 g/dL (11.5-16.0); LYMPHOCYTES % (AUTO) 16 % (12-44); MEAN CORPUSCULAR HEMOGLOBIN 31 pg (25-34); MEAN CORPUSCULAR HGB CONC 32 g/dL (32-36); MEAN CORPUSCULAR VOLUME 96 fL (80-99); MEAN PLATELET VOLUME 10.4 fL (9.0-12.2); MONOCYTES # (AUTO) 0.7 10^3/uL (0.0-1.0); MONOCYTES % (AUTO) 11 % (0-12); NEUTROPHILS # (AUTO) 4.3 10^3/uL (1.8-7.8); NEUTROPHILS % (AUTO) 65 % (42-75); PLATELET COUNT 167 10^3/uL (130-400); WHITE BLOOD COUNT 6.5 10^3/uL (4.3-11.0)
[2020-06-27 07:09] LABS: BILIRUBIN,URINE NEGATIVE (NEGATIVE); CLARITY,URINE CLEAR; COLOR,URINE YELLOW; GLUCOSE, URINE (UA) NEGATIVE (NEGATIVE); KETONES,URINE NEGATIVE (NEGATIVE); LEUKOCYTE ESTERASE ,URINE NEGATIVE (NEGATIVE); NITRITE,URINE NEGATIVE (NEGATIVE); PROTEIN,URINE NEGATIVE (NEGATIVE)
[2020-06-27 07:11] LABS: ALBUMIN 3.6 GM/DL (3.2-4.5)
[2020-06-27 07:12] LABS: POTASSIUM 3.6 MMOL/L (3.6-5.0)
[2020-06-27 07:14] LABS: TOTAL PROTEIN 6.8 GM/DL (6.4-8.2)
[2020-06-27 07:16] LABS: BILIRUBIN,TOTAL 0.4 MG/DL (0.1-1.0)
[2020-06-27 07:17] LABS: BACTERIA,URINE NEGATIVE /HPF; HYALINE CASTS, URINE 25-50 /LPF; WBC,URINE RARE /HPF
[2020-06-27 07:18] LABS: CREATININE SERUM 2.12 MG/DL (0.60-1.30)
--- NOTE | 2020-06-27 08:00 | NUR ---
COVID SWAB DONE BY DR MOULTON.
--- NOTE | 2020-06-27 08:13 | NUR ---
DR KENNEY CASTELLON CALL AND TALK WITH ABOUIT ADMIT
[2020-06-27 08:30] VITALS: BP 121/58
[2020-06-27] MEDS ORDERED: ACETAMINOPHEN 325 MG TABLET PO PRN (09:00)
[2020-06-27] MEDS ORDERED: ONDANSETRON 4 MG/2 ML (SDV) Z0FRAN IVP PRN (09:00)
[2020-06-27] MEDS: LACTATED RINGERS 1,000 ML IV SCH ×2 (10:01→18:15)
--- NOTE | 2020-06-27 10:46 | History & Physical-Hospitalist ---
History of Present Illness HPI/Chief Complaint CC: Severe debility- unable to go home HPI: This is a 64yoWF who has a long history of multiple medical problems, in [facility] about every other week, who presented to the ER after a fall and her dropped her off and told the ER providers that they couldnt take care of her at home anymore. She will need a senior living for long-term care placement. Creatinine is 2.1 and she will need placement whenever they can secure that. Source: patient, old records Exam Limitations: no limitations Date Seen 06/27/20 Time Seen by a Provider: 10:00 Attending Physician Sarah Morrell Holly R MD Referring Physician Date of Admission Jun 27, 2020 at 07:20 Home Medications & Allergies Home Medications Reviewed patient Home Medication Reconciliation performed by pharmacy medication reconciliations digital cartographic technician and/or nursing. Patients Allergies have been reviewed. Allergies Allergies Coded Allergies Pcmfaxc-Wnu-Grn Reductase Inhibitor (Verified Allergy, Intermediate, GI UPSET, N/V, 05/18/20) cefadroxil (Verified Allergy, Mild, 05/18/20) Sulfa (Sulfonamide Antibiotics) (Verified Allergy, Unknown, 05/18/20) oxycodone (Verified Allergy, Unknown, 05/18/20) "makes skin crawl" Past Wkflejf-Fjcrpw-Gtkcat Hx Past Med/Social Hx: Reviewed Nursing Past Med/Soc Hx, Reviewed and Corrections made Patient Social History Marrital Status: Employed/Student: unemployed Alcohol Use: Denies Use Recreational Drug Use: No Smoking Status: Former Smoker Former Smoker, Quit: May 20, 1980 Type Used: Cigarettes 2nd Hand Smoke Exposure: No Recent Foreign Travel: No Contact w/other who traveled: No Recent Hopitalizations: No Recent Infectious Disease Expo: No Immunizations Up To Date Tetanus Booster (TDap): Unknown Pediatric: Yes Date of Pneumonia Vaccine: May 16, 2019 Date of Influenza Vaccine: Apr 18, 2020 Seasonal Allergies Seasonal Allergies: Yes Past Medical History Surgeries: Adenoidectomy, Cardiac, CABG, Coronary Stent, Open Heart Surgery, Orthopedic, Tonsillectomy, Tubal Ligation Respiratory: COPD, Sleep Apnea Currently Using CPAP: No Currently Using BIPAP: No Cardiac: Atrial Fibrillation, Chronic Edema/Swelling, Coronary Artery Disease, Heart Attack, High Cholesterol, Hypertension Neurological: Dementia : No Reproductive: No Sexually Transmitted Disease: No HIV/AIDS: No Female Reproductive Disorders: Denies Menopausal Genitourinary: Bladder Infection, Renal Failure Gastrointestinal: Gastroesophageal Reflux, Liver Disease/Jaundice, Gastrointestinal Bleed, Diverticulosis, Hemorrhoids, Polyps, Cirrhosis Musculoskeletal: Degenerate Disk Disease, Arthritis, Chronic Back Pain, Fractures Endocrine: Diabetes, Insulin dep, Hypothyroidsim Loss of Vision: Denies Hearing Impairment: Denies Psychosocial: Anxiety Skin/Integumentary: Psoriasis History of Blood Disorders: Yes (CHRONIC ANEMIA-GI LOSS/GAVE SYNDROME; MULT TRANSFUSIONS/MULT ANTIBODIES) Adverse Reaction to Blood Wright: Yes (Antibody JKA) Family History Arthritis G8 BROTHER Completed stroke 19 MOTHER FH: anemia 19 MOTHER FH: lupus G8 SISTER FH: throat cancer 19 FATHER Hypertension G8 SISTER Myocardial infarction 19 MOTHER Thyroid disease 19 MOTHER G8 SISTER Hypertension, Stroke, Other Conditions/Hx PSH: -LEFT ANKLE SURGERY -LEFT KNEE SURGERY -CARDIAC CATHS--STENT X 1 -4 VESSEL CABG AT [facility] 02/16/18 -THORACENTESIS -TONSILLECTOMY/ADENOIDECTOMY -BTL -PORT RIGHT CHEST -LEXISCAN STRESS TEST 03/08/20--NORMAL. EF 70% Review of Systems Constitutional: see HPI, malaise, weakness Physical Exam Physical Exam Vital Signs Vital Signs - First Documented 06/27/20 05:55 Temp 36.6 Pulse 78 Resp 16 B/P (MAP) 117/58 (77) Pulse Ox 98 O2 Delivery Room Air Capillary Refill : Less Than 3 Seconds Height, Weight, BMI Height: 5'4.00" Weight: 196lbs. 5.0oz. [id number]; 37.52 BMI Method:Stated General Appearance: No Apparent Distress, Chronically ill Eyes: Right Eye Normal Inspection, Right Eye PERRL HEENT: PERRL/EOMI, Normal ENT Inspection, Pharynx Normal, Moist Mucous Membranes Neck: Full Range of Motion, Normal Inspection, Non Tender Respiratory: Chest Non Tender, Lungs Clear, Normal Breath Sounds, No Accessory Muscle Use, No Respiratory Distress Cardiovascular: Regular Rate, Rhythm, No Edema, No Gallop, No JVD, No Murmur, Normal Peripheral Pulses Gastrointestinal: Normal Bowel Sounds, No Organomegaly, No Pulsatile Mass, Non Tender, Soft Back: Normal Inspection, No CVA Tenderness, No Vertebral Tenderness Extremity: Normal Capillary Refill, Normal Inspection, Normal Range of Motion, Non Tender, No Calf Tenderness, No Pedal Edema Neurologic/Psychiatric: Alert, Oriented x3, No Motor/Sensory Deficits, Depressed Affect, Disoriented Skin: Normal Color, Warm/Dry Lymphatic: No Adenopathy Results Results/Procedures Labs Laboratory Tests 06/27/20 06:50 Patient resulted labs reviewed. 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
[2020-06-27] MEDS ORDERED: BUMETANIDE 1 MG (BUMEX) TAB PO PRN (11:00)
--- NOTE | 2020-06-27 11:11 | Physical Therapy Evaluation ---
PT Evaluation-General Medical Diagnosis Admission Date Jun 27, 2020 at 07:20 Medical Diagnosis: Physical Debility, falls Onset Date: Jun 27, 2020 Therapy Diagnosis Therapy Diagnosis: Limited mobility Height/Weight Height (Feet): 5 Height (Inches): 4.00 Weight (Pounds): 196 Weight (Ounces): 5.0 Weight Bear Status Right Lower Extremity: Right Weight Bearing/Tolerated Left Lower Extremity: Left Weight Bearing/Tolerated Referral Physician: Sarah Morrell DO Reason for Referral: Evaluation/Treatment Medical History Pertinent Medical History: Atrial Fib, CABG, CAD, DM, Dementia, Heart Failure, HTN, Hypothroidism, MS, Renal Insufficiency Current History Generalized weakness. Reviewed History: Yes Social History Home: Single Level Current Living Status: Significant Other Entry Into Home: Level Entry PT Steps Into Home: 0 PT Steps Inside Home: 0 Prior Prior Level of Function SCALE: Activities may be completed with or without assistive devices. 1-Ogiosdzszy-cyyyiww completes the activity by him/herself with no assistance from a helper. 5-Set-up or Clean-up Assistance-helper sets up or cleans up; patient completes activity. [place] assists only prior to or following the activity. 4-Supervision or Touching Assistance-helper provides verbal cues and/or touching/steadying and/or contact guard assistance as patient completes activ ity. Assistance may be provided throughout the activity or intermittently. 3-Partial/Moderate Assistance-helper does LESS THAN HALF the effort. [place] lifts, holds or supports trunk or limbs, but provides less than half the effort. 2-Substantial/Maximal Assistance-helper does MORE THAN HALF the effort. [place] lifts or holds trunk or limbs and provides more than half the effort. 1-Anruocqqc-qfjijd does ALL the effort. Patient does none of the effort to complete the activity. Or, the assistance of 2 or more helpers is required for the patient to complete the activity. If activity was not attempted, code reason: 7-Patient Refused. 9-Not Applicable-not attempted and the patient did not perform the activity before the current illness, exacerbation or injury. 10-Not Attempted due to Environmental Limitations-(lack of equipment, weather restraints, etc.). 88-Not Attempted due to Medical Conditions or Safety Concerns. Bed Mobility: 6 Transfers (B,C,W/C): 6 Gait: 6 Stairs: 6 Indoor Mobility (Ambulation): Independent Stairs: Independent Prior Devices Use: Walker PT Evaluation-Current Subjective Pt denies pain. Notes (B) LE weakness and poor stability with ambulation. Pt/Family Goals Return home. Objective Patient Orientation: Person, Place, Time, Situation Attachments: Central Line ROM/Strength ROM Upper Extremities WFL ROM Lower Extremities WFL Strength Upper Extremities WFL Strength Lower Extremities (B) LE gross MMT 4/5. Pt was able to perform the LE testing without assist. Neuromuscular (Tone, Coordination, Reflexes) Intact (B) LE reflexes. Sensory Vision: Functional Hearing: Functional Hand Dominance: Right Sensation Right Upper Extremit: Intact Sensation Left Upper Extremity: Intact Sensation Right Lower Extremit: Intact Sensation Left Lower Extremity: Intact Transfers Roll Left to Right (QC): 5 Sit to Lying (QC): 5 Lying to Sitting/Side of Bed(Q: 4 Sit to Stand (QC): 4 Gait Does the Patient Walk?: Yes Mode of Locomotion: Walk Anticipated Mode of Locomotion: Walk Distance: 5ft Gait Assistive Device: FWW Comments/Gait Description Very fatigued and unsteady. Slightly retropulsive upon sitting from standing. Wheelchair Training Does the Pt Use a Wheelchair?: No Balance Sitting Static: Normal Sitting Dynamic: Good Standing Static: Fair Standing Dynamic: Fair Special Test Comments Attempted eyes closed standing and narrow stance, but pt was unable to remain standing safely without assistance. Assessment/Needs Pt has poor activity tolerance resulting in instability with standing activity. Rehab Potential: Good PT Short Term Goals Short Term Goals Time Frame: Jul 04, 2020 Roll Left & Right: 6 Sit to lyin Lying to sitting on side of be: 6 Sit to stand: 6 Chair/kxg-yd-niygp transfer: 6 Toilet transfer: 6 Car transfer: 6 Walk 10 feet: 6 Walk 50 feet with two turns: 6 Walk 150 feet: 6 PT Plan Problem List Problem List: Activity Tolerance, Functional Strength, Safety, Balance, Gait Treatment/Plan Treatment Plan: Continue Plan of Care Treatment Plan: Concurrent Therapy, Functional Activity Tamy, Functional Strength, Gait, Safety, Therapeutic Exercise, Transfers Treatment Duration: Jul 04, 2020 Frequency: 6 times per week Estimated Hrs Per Day: .25 hour per day Patient and/or Family Agrees t: Yes Time/GCodes Time In: 1050 Time Out: 1105 Total Billed Treatment Time: 15 Total Billed Treatment 1, evmodc 15 ALTON DELEON PT Jun 27, 2020 11:11
--- NOTE | 2020-06-27 11:58 | Occupational Therapy Eval ---
OT Evaluation-General/PLF Medical Diagnosis Admission Date Jun 27, 2020 at 07:20 Medical Diagnosis: Physical Debility, falls Onset Date: Jun 27, 2020 Therapy Diagnosis Therapy Diagnosis: Decreased ADL status Height/Weight Height (Feet): 5 Height (Inches): 4.00 Weight (Pounds): 196 Weight (Ounces): 5.0 Weight Bear Status Weight Bearing Restriction: Weight Bearing/Tolerated Referral Physician: Sarah Morrell DO Referral Reason: Activity Tolerance, Self Care, Evaluation/Treatment, Strengthening/ROM Medical History Pertinent Medical History: Atrial Fib, CABG, CAD, DM, Dementia, Heart Failure, HTN, Hypothroidism, [place], Renal Insufficiency Additional Medical History CABG, COPD, CAD, [place], HTN, DIDDM, anx, chronic edema, a fib, dementia Current History H/o multiple falls at home. [facility] brought pt from home to ER Jun 27 with additional fall. Per notes, pt's is primary caregiver, is in w/c. Pt states she has had multiple falls resulting in pain in back and R shoulder, nursing notified of this pain. Pt states nettiebnad does not assist in many ADLs, though in IADLs he assists. Pt states IND with ADLs for the most part, though if she needs help she states she calls for assist. Reviewed History: Yes Social History Home: Single Level Current Living Status: Significant Other Entry Into Home: Level Entry Steps Into Home: 0 Steps Inside Home: 0 ADL-Prior Level of Function SCALE: Activities may be completed with or without assistive devices. 6-Kycjehawko-agebala completes the activity by him/herself with no assistance from a helper. 5-Set-up or Clean-up Assistance-helper sets up or cleans up; patient completes activity. [place] assists only prior to or following the activity. 4-Supervision or Touching Assistance-helper provides verbal cues and/or touching/steadying and/or contact guard assistance as patient completes activity. Assistance may be provided throughout the activity or intermittently. 3-Partial/Moderate Assistance-helper does LESS THAN HALF the effort. [place] lifts, holds or supports trunk or limbs, but provides less than half the effort. 2-Substantial/Maximal Assistance-helper does MORE THAN HALF the effort. [place] lifts or holds trunk or limbs and provides more than half the effort. 1-Eytmlrwgv-mlcjya does ALL the effort. Patient does none of the effort to complete the activity. Or, the assistance of 2 or more helpers is required for the patient to complete the activity. If activity was not attempted, code reason: 7-Patient Refused. 9-Not Applicable-not attempted and the patient did not perform the activity before the current illness, exacerbation or injury. 10-Not Attempted due to Environmental Limitations-(lack of equipment, weather restraints, etc.). 88-Not Attempted due to Medical Conditions or Safety Concerns. ADL PLOF Comments Pt states IND with ADLs with use of rolling walker. Pt states assist at times, requiring phone call as cannot assist much. Pt states assists with IADLs. 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 Pt agrees to OT tx, states 8/10 pain in back/ shoulder, nursing notified of pain. Mental Status/Objective Patient Orientation: Person, Place, Situation Attachments: IV Current Glasses/Contacts: No Hearing Aids: No Hand Dominance: Right Upper Extremity ROM WFL BUE Upper Extremity Coordination WFL BUE, delayed activity Upper Extremity Sensation WFL per pt BUE Upper Extremity Strength Decreased generally UE ADL-Treatment Eating (QC): 6 Lower Body Dressing (QC): 2 (per pt report ) On/Off Footwear (QC): 1 (pt denies attempt, stating she will not be able to complete.) Other Treatments Pt completes bed mob with min A. Sit to stand with CGA and stands ~45 seconds with kyphotic posture, slightly retropulsive. Pt requires cues for straightening posture. Pt able to take 2 small steps toward HOB with CGA. Pt sits, states very fatigued and denies ADLs. Pt is educated on OT role. Pt states she and have been discussing DAGO for pt. Pt states requires assist at times as well. Pt denies needs, returns to supine/ HOB elevated with min A. Call light in reach. Pt will benefit from skilled OT tx to address fx activity tolerance, general malaise/ weakness, ADL abilities and safety. Education OT Patient Education: Correct positioning, Purpose of tx/functional activities, Safety issues, Transfer techniques, Use of adapted equipment (gb in shower.) Teaching Recipient: Patient Teaching Methods: Demonstration, Discussion Response to Teaching: Verbalize Understanding, Return Demonstration OT Bale Opener Goals Bale Opener Goals Time Frame: Jul 04, 2020 Eating (QC): 6 Oral Hygiene (QC): 6 Toileting Hygiene (QC): 4 Shower/Bathe Self (QC): 4 Upper Body Dressing (QC): 5 Lower Body Dressing (QC): 4 On/Off Footwear (QC): 4 Additional Goals: 1-Demonstrate ADL Tasks, 2-Verbalize Understanding, 3- ImproveStrength/Tamy 1=Demonstrate adherence to instructed precautions during ADL tasks. 2=Patient will verbalize/demonstrate understanding of assistive devices/mo difications for ADL. 3=Patient will improve strength/tolerance for activity to enable patient to perform ADL's. OT Education/Plan Problem List/Assessment Assessment: Decreased Activ Tolerance, Decreased UE Strength, Dependent Transfers, Impaired Bed Mobility, Impaired Cognition, Impaired Funct Balance, Impaired I ADL's, Impaired Self-Care Skills Discharge Recommendations Plan/Recommendations: Continue POC Therapy Discharge Recommendati: 24 Hour Supervision, Post Acute OT Treatment Plan/Plan of Care Treatment,Training & Education: Yes Patient would benefit from OT for education, treatment and training to promote independence in ADL's, mobility, safety and/or upper extremity function for ADL's. Plan of Care: ADL Retraining, Caregiver Training, Concurrent Therapy, Functional Mobility, UE Funct Exercise/Act Treatment Duration: Jul 04, 2020 Frequency: 5 times per week Estimated Hrs Per Day: .25 hour per day Agreement: Yes Rehab Potential: Fair Time/GCodes Start Time: 11:37 Stop Time: 11:49 Total Time Billed (hr/min): 12 Billed Treatment Time LEON Ellis (12) ARGELIA AGUIRRE OTR Jun 27, 2020 11:58
[2020-06-27 12:00] VITALS: BP 132/78
[2020-06-27] MEDS: inSUlin ASPART (NovoLOG) 1 UNIT/0.01 ML (CHARGE PER UNIT) SC SCH ×3 (12:04→20:03)
--- NOTE | 2020-06-27 13:28 | NUR ---
Pt admitted on observation status. Her 2nd ER visit occurred today due to another fall. She was discharged from in-pt status on Jun.18. states he no longer can provide her adequate care due to her frequent falls and daughter who lives in [place] states her mom gets worse at home after hospitalization and that she l supports placement in a usp home facility since she doesn't qualify for Acute Rehab Unit. Pt reluctant to enter a halfway but did give permission for medical evaluations be sent to [facility] as her first choice for placement. Awaiting their decision.
--- NOTE | 2020-06-27 14:42 | NUR ---
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 Offered reassuring words and expressed intent to revisit the pt so she could rest at present.
[2020-06-27 16:00] VITALS: BP 96/44
[2020-06-27] MEDS: inSUlin NPH (NovoLIN N) 1 UNIT/0.01 ML (CHARGE PER UNIT) SQ SCH (18:15)
[2020-06-27 19:38] VITALS: BP 115/78
[2020-06-27] MEDS: PANTOPRAZOLE 40 MG (PROTONIX) TAB PO SCH (20:36)
[2020-06-27] MEDS: LACTULOSE SYRUP 10GM/15ML (ENULOSE) 30ML UDC PO SCH (20:36)
[2020-06-27] MEDS: toPIRamate 25 MG (TOPAMAX) TAB PO SCH (20:36)
[2020-06-27] MEDS: MAGNESIUM OXIDE (MAG-OX)400 MG TAB PO SCH (20:36)
[2020-06-28] VITALS: BP 125/66
[2020-06-28 04:00] VITALS: BP 139/72
[2020-06-28] MEDS ORDERED: LEVOTHYROXINE 125 MCG (LEVOTHROID) TABLET PO SCH (06:30)
[2020-06-28] MEDS: inSUlin ASPART (NovoLOG) 1 UNIT/0.01 ML (CHARGE PER UNIT) SC SCH ×2 (06:41→10:56)
[2020-06-28] MEDS: LACTATED RINGERS 1,000 ML IV SCH (06:42)
[2020-06-28 06:43] LABS: BASOPHILS % (AUTO) 1 % (0-10); EOSINOPHILS # (AUTO) 0.5 10^3/uL (0.0-0.3); EOSINOPHILS % (AUTO) 9 % (0-10); HEMATOCRIT 25 % (35-52); HEMOGLOBIN 8.4 g/dL (11.5-16.0); LYMPHOCYTES # (AUTO) 0.8 10^3/uL (1.0-4.0); LYMPHOCYTES % (AUTO) 17 % (12-44); MEAN CORPUSCULAR HEMOGLOBIN 32 pg (25-34); MEAN CORPUSCULAR HGB CONC 33 g/dL (32-36); MEAN CORPUSCULAR VOLUME 97 fL (80-99); MEAN PLATELET VOLUME 10.5 fL (9.0-12.2); MONOCYTES # (AUTO) 0.5 10^3/uL (0.0-1.0); MONOCYTES % (AUTO) 11 % (0-12); NEUTROPHILS % (AUTO) 62 % (42-75); PLATELET COUNT 135 10^3/uL (130-400); WHITE BLOOD COUNT 4.9 10^3/uL (4.3-11.0)
[2020-06-28 06:58] LABS: ALBUMIN 3.2 GM/DL (3.2-4.5); POTASSIUM 3.6 MMOL/L (3.6-5.0)
[2020-06-28 07:00] LABS: CALCIUM 8.7 MG/DL (8.5-10.1)
[2020-06-28 07:01] LABS: TOTAL PROTEIN 6.2 GM/DL (6.4-8.2)
[2020-06-28 07:03] LABS: BILIRUBIN,TOTAL 0.4 MG/DL (0.1-1.0)
[2020-06-28 07:04] LABS: CREATININE SERUM 2.03 MG/DL (0.60-1.30)
[2020-06-28 07:50] VITALS: BP 140/63
[2020-06-28] MEDS ORDERED: FOLIC ACID 1 MG TAB PO SCH (09:00)
[2020-06-28] MEDS ORDERED: RIFAXIMIN 550 MG TABLET (XIFAXAN) PO SCH (09:00)
[2020-06-28] MEDS ORDERED: ONDANSETRON 4 MG (ZOFRAN) ORAL DISSOLVE TAB PO SCH (09:00)
[2020-06-28] MEDS ORDERED: NITROFURANTOIN 100 MG (MACROBID) CAPSULE PO SCH (09:00)
[2020-06-28] MEDS ORDERED: LORATADINE (CLARITIN) 10 MG TAB PO SCH (09:00)
--- NOTE | 2020-06-28 09:02 | NUR ---
[facility] can accept Deborah for skilled care to provide short-term rehab services. Pt is agreeable as is and daughter.
--- NOTE | 2020-06-28 09:27 | Physical Therapy Daily Note ---
PT Daily Note-Current Subjective Patient in bed pre tx, has trouble communicating, will say yes to therapy but seems to have trouble initiating movement or with processing info. Appearance Patient in recliner post tx with nurse call, phone, tray, all needs met. Chair alarm on, legs elevated. Mental Status Patient Orientation: Person, Confused, Unable to Assess Attachments: IV Transfers SCALE: Activities may be completed with or without assistive devices. 9-Fxmfhoucxq-fsjbmgz completes the activity by him/herself with no assistance from a helper. 5-Set-up or Clean-up Assistance-helper sets up or cleans up; patient completes activity. [place] assists only prior to or following the activity. 4-Supervision or Touching Assistance-helper provides verbal cues and/or touching/steadying and/or contact guard assistance as patient completes activity. Assistance may be provided throughout the activity or intermittently. 3-Partial/Moderate Assistance-helper does LESS THAN HALF the effort. [place] lifts, holds or supports trunk or limbs, but provides less than half the effort. 2-Substantial/Maximal Assistance-helper does MORE THAN HALF the effort. [place] lifts or holds trunk or limbs and provides more than half the effort. 9-Ndfcpkcps-vdsqje does ALL the effort. Patient does none of the effort to complete the activity. Or, the assistance of 2 or more helpers is required for the patient to complete the activity. If activity was not attempted, code reason: 7-Patient Refused. 9-Not Applicable-not attempted and the patient did not perform the activity before the current illness, exacerbation or injury. 10-Not Attempted due to Environmental Limitations-(lack of equipment, weather restraints, etc.). 88-Not Attempted due to Medical Conditions or Safety Concerns. Roll Left & Right (QC): 3 Lying to Sitting/Side of Bed(Q: 3 Sit to Stand (QC): 3 Chair/Ikt-ib-Isbug Xfer(QC): 3 mod assist for supine to sit, min assist for sit to stand and transfer, after standing patient needs pushing/guiding to get her to the recliner, otherwise she just stands there with a blank look on her face Weight Bearing Right Lower Extremity: Right Weight Bearing/Tolerated Left Lower Extremity: Left Weight Bearing/Tolerated Gait Training Distance: 2' Gait Persons Needed: 1 Gait Assistive Device: FWW Treatments bed mobility and transfers Assessment Current Status: Poor Progress Patient very flat, trouble with movement PT Short Term Goals Short Term Goals Time Frame: Jul 04, 2020 Roll Left & Right: 6 Sit to lyin Lying to sitting on side of be: 6 Sit to stand: 6 Chair/ysu-ol-ybnia transfer: 6 Toilet transfer: 6 Car transfer: 6 Walk 10 feet: 6 Walk 50 feet with two turns: 6 Walk 150 feet: 6 PT Plan Problem List Problem List: Activity Tolerance, Functional Strength, Safety, Balance, Gait, Transfer, Bed Mobility, ROM Treatment/Plan Treatment Plan: Continue Plan of Care Treatment Plan: Concurrent Therapy, Functional Activity Tamy, Functional Strength, Gait, Safety, Therapeutic Exercise, Transfers Treatment Duration: Jul 04, 2020 Frequency: 6 times per week Estimated Hrs Per Day: .25 hour per day Patient and/or Family Agrees t: Yes Safety Risks/Education Patient Education: Gait Training, Transfer Techniques, Correct Positioning, Safety Issues Teaching Recipient: Patient Teaching Methods: Demonstration, Discussion Response to Teaching: Reinforcement Needed Time/GCodes Time In: 0837 Time Out: 0848 Total Billed Treatment Time: 11 Total Billed Treatment 1 visit FA LEIGHTON SHEEHAN PT Jun 28, 2020 09:27
[2020-06-28] MEDS: inSUlin NPH (NovoLIN N) 1 UNIT/0.01 ML (CHARGE PER UNIT) SQ SCH (09:38)
[2020-06-28] MEDS: PANTOPRAZOLE 40 MG (PROTONIX) TAB PO SCH (09:39)
[2020-06-28] MEDS: MAGNESIUM OXIDE (MAG-OX)400 MG TAB PO SCH (09:39)
[2020-06-28] MEDS: LACTULOSE SYRUP 10GM/15ML (ENULOSE) 30ML UDC PO SCH (09:39)
[2020-06-28] MEDS: toPIRamate 25 MG (TOPAMAX) TAB PO SCH (09:39)
--- NOTE | 2020-06-28 09:40 | NUR ---
ULTRAM PO FOR BACKPAIN.
--- NOTE | 2020-06-28 09:49 | Occupational Ther Daily Note ---
OT Current Status-Daily Note Subjective Pt in chair upon entry. Food in front of pt with food partially eaten. Pt asleep, wakes easily. Pt alert to person/ place only, reoriented to situation. Pt states pain in back, limiting abilities through session. Pt has increased/ delayed response time, oftentimes not answering questions. Mental Status/Objective Patient Orientation: Person, Place Attachments: IV ADL-Treatment Therapy Code Descriptions/Definitions Functional Aragon Measure: 0=Not Assessed/NA 4=Minimal Assistance 1=Total Assistance 5=Supervision or Setup 2=Maximal Assistance 6=Modified Aragon 3=Moderate Assistance 7=Complete IndependenceSCALE: Activities may be completed with or without assistive devices. 4-Psomnxpebc-vdyltjv completes the activity by him/herself with no assistance from a helper. 5-Set-up or Clean-up Assistance-helper sets up or cleans up; patient completes activity. [place] assists only prior to or following the activity. 4-Supervision or Touching Assistance-helper provides verbal cues and/or touching/steadying and/or contact guard assistance as patient completes activity. Assistance may be provided throughout the activity or intermittently. 3-Partial/Moderate Assistance-helper does LESS THAN HALF the effort. [place] lifts, holds or supports trunk or limbs, but provides less than half the effort. 2-Substantial/Maximal Assistance-helper does MORE THAN HALF the effort. [place] lifts or holds trunk or limbs and provides more than half the effort. 6-Jwwpkqacf-hsiuzv does ALL the effort. Patient does none of the effort to comp lete the activity. Or, the assistance of 2 or more helpers is required for the patient to complete the activity. If activity was not attempted, code reason: 7-Patient Refused. 9-Not Applicable-not attempted and the patient did not perform the activity before the current illness, exacerbation or injury. 10-Not Attempted due to Environmental Limitations-(lack of equipment, weather restraints, etc.). 88-Not Attempted due to Medical Conditions or Safety Concerns. Eating (QC): 3 (Pt attempts to bring food to mouth with spoon. Pt able to reach L side of mouth, requires increased time throughout, then spoon falls from hand. Pt is assisted in bringing items to mouth. Pt denies futher food.) Oral Hygiene (QC): 7 (denies) Shower/Bathe Self (QC): 7 (Pt denies originally. When handed a cloth, pt able to wipe hands and arm pits with cues. Pt denies further tasks.) Other Treatment Pt completes minimal feeding/ bathing tasks in recliner. Pt begins to attempt to bring LEs down/ bring leg rest to neutral. Pt is assisted in this. Pt attempts sit to stand, pt is educated to sit until chair is situated. Pt states she wants to go back to bed. Pts chair placed beside beside, requires mod A for sit to stand and continued cues in stance for position of body. Pt requires mod A to return to supine. Max A to reach HOB. Pt states pain in back once more and nursing notified of pain. Pt left in bed with bed alarm on, call light in reach, all needs met. Education OT Patient Education: Correct positioning, Modified ADL techniques, Purpose of tx/functional activities, Safety issues, Transfer techniques Teaching Recipient: Patient Teaching Methods: Demonstration, Discussion Response to Teaching: Unable to Return Demonstration, Return Demonstration, Unable to Comprehend, Reinforcement Needed OT Assisted Goals Home Service Director Goals Time Frame: Jul 04, 2020 Eating (QC): 6 Oral Hygiene (QC): 6 Toileting Hygiene (QC): 4 Shower/Bathe Self (QC): 4 Upper Body Dressing (QC): 5 Lower Body Dressing (QC): 4 On/Off Footwear (QC): 4 Additional Goals: 1-Demonstrate ADL Tasks, 2-Verbalize Understanding, 3- ImproveStrength/Tamy 1=Demonstrate adherence to instructed precautions during ADL tasks. 2=Patient will verbalize/demonstrate understanding of assistive devices/modifications for ADL. 3=Patient will improve strength/tolerance for activity to enable patient to perform ADL's. OT Education/Plan Problem List/Assessment Assessment: Decreased Activ Tolerance, Decreased Safety Aware, Decreased UE Strength, Dependent Transfers, Impaired Bed Mobility, Impaired Cognition, Impaired Funct Balance, Impaired I ADL's, Impaired Self-Care Skills Discharge Recommendations Plan/Recommendations: Continue POC Therapy Discharge Recommendati: 24 Hour Supervision Treatment Plan/Plan of Care Treatment,Training & Education: Yes Patient would benefit from OT for education, treatment and training to promote independence in ADL's, mobility, safety and/or upper extremity function for ADL's. Plan of Care: ADL Retraining, Caregiver Training, Concurrent Therapy, Functional Mobility, UE Funct Exercise/Act Treatment Duration: Jul 04, 2020 Frequency: 5 times per week Estimated Hrs Per Day: .25 hour per day Agreement: Yes Rehab Potential: Fair Time/GCodes Start Time: 09:13 Stop Time: 09:35 Total Time Billed (hr/min): 22 Billed Treatment Time 1, ADL (22) ARGELIA AGUIRRE OTR Jun 28, 2020 09:49
[2020-06-28 11:50] VITALS: BP 134/65
--- NOTE | 2020-06-28 12:18 | Discharge Inst-Skilled Nursing ---
Discharge Inst-Skilled NF Reconcile Patient Problems Problems Reviewed?: Yes Chief Complaint CC: Severe debility- unable to go home HPI: This is a 64yoWF who has a long history of multiple medical problems, in the hospital about every other week, who presented to the ER after a fall and her dropped her off and told the ER providers that they couldnt take care of her at home anymore. She will need a detention for long-term care p lacement. Creatinine is 2.1 and she will need placement whenever they can secure that. Patient Instructions Patient Problems: Debility Consult/Follow Up/Orders Follow Up Appt.: [facility] 1 week Skilled NF Admit to: [facility] Certification ([facility]) I certify that SNF services are required to be given on an inpatient basis because of the above named patient's need for fdc care on a c ontinuing basis for the conditions(s) for which he/she was receiving inpatient hospital services prior to his/her transfer to the SNF. Shelter Facility Order: Nursing Services, Finished Stock Inspector-Evaluate & Treat, Physical Therapy-Evaluate & Treat, Speech Language-Evaluate & Treat Oxygen Delivery Method: Room Air Discharge Diet: No Restrictions Resuscitation Status: Full Code New & Resume Previous Orders Continued Medications: Bumetanide (Bumetanide) 1 Mg Tablet 1 MG PO DAILY PRN for FLUID RETENTION, TAB Cetirizine HCl (Zyrtec) 10 Mg Tablet 10 MG PO DAILY, TAB Ergocalciferol (Vitamin D2) (Vitamin D2) 1,250 Mcg Capsule 898752 UNITS PO WEEK, CAP Folic Acid (Folic Acid) 1 Mg Tablet 1 MG PO DAILY, TAB Insulin NPH Human Isophane (Novolin N) 100 Unit/1 Ml Vial 15 UNIT SQ BID, VIAL Lactulose (Lactulose) 20 Gm/30 Ml Solution 20 GM PO BID, #1800 ML 0 Refills Levothyroxine Sodium (Levothyroxine) 125 Mcg Capsule 125 MCG PO DAILY, CAP Magnesium Oxide (Magox 400) 400 Mg Tablet 400 MG PO BID, TAB Nitrofurantoin Monohyd/M-Cryst (Macrobid 100 mg Capsule) 100 Mg Capsule 1 TAB PO DAILY, CAP Omeprazole (Omeprazole) 40 Mg Capsule.dr 40 MG PO BID, CAP Ondansetron HCl (Ondansetron HCl) 4 Mg Tablet 4 MG PO DAILY, TAB Topiramate (Topiramate) 50 Mg Tablet 50 MG PO BID, TAB Discontinued Medications: Rifaximin (Xifaxan) 200 Mg Tablet 600 MG PO BID, TAB TAKES 3 (200MG) TABS Sarah Morrell Jun 28, 2020 12:16 SARAH MORRELL DO Jun 28, 2020 12:18
--- NOTE | 2020-06-28 12:18 | Discharge Summary ---
Discharge Summary Hospital Course Was the Problem List Reviewed?: Yes Problems/Dx: (1) Physical debility Status: Acute Hospital Course Date of Admission: Jun 27, 2020 at 07:20 Admission Diagnosis : Family Physician/Provider: Carla Wilson MD Date of Discharge: 06/28/20 Discharge Diagnosis: chronic debility, chronic GIB, CRI Hospital Course: Short course after admitted when family could no longer take care of her at home. PT OT consulted restarted all home meds. NH mcc was required so placed at [facility] at [place]. Poor prognosis mcc. Labs and Pending Lab Test: Laboratory Tests 06/27/20 15:21: Glucometer 142H 06/27/20 20:02: Glucometer 163H 06/28/20 05:58: Glucometer 167H 06/28/20 06:35: White Blood Count 4.9, Red Blood Count 2.63L, Hemoglobin 8.4L, Hematocrit 25L, Mean Corpuscular Volume 97, Mean Corpuscular Hemoglobin 32, Mean Corpuscular Hemoglobin Concent 33, Red Cell Distribution Width 13.8, Platelet Count 135, Mean Platelet Volume 10.5, Immature Granulocyte % (Auto) 0, Neutrophils (%) (Auto) 62, Lymphocytes (%) (Auto) 17, Monocytes (%) (Auto) 11, Eosinophils (%) (Auto) 9, Basophils (%) (Auto) 1, Neutrophils # (Auto) 3.0, Lymphocytes # (Auto) 0.8L, Monocytes # (Auto) 0.5, Eosinophils # (Auto) 0.5H, Basophils # (Auto) 0.0, Immature Granulocyte # (Auto) 0.0, Sodium Level 141, Potassium Level 3.6, Chlor joselo Level 108H, Carbon Dioxide Level 23, Anion Gap 10, Blood Urea Nitrogen 24H, Creatinine 2.03H, Estimat Glomerular Filtration Rate 25, BUN/Creatinine Ratio 12, Glucose Level 172H, Calcium Level 8.7, Corrected Calcium 9.3, Total Bilirubin 0.4, Aspartate Amino Transf (AST/SGOT) 12, Alanine Aminotransferase (ALT/SGPT) 9, Alkaline Phosphatase 73, Total Protein 6.2L, Albumin 3.2 06/28/20 10:53: Glucometer 164H Home Meds Active Lactulose 20 Gm/30 Ml Solution 20 Gm PO BID Reported Vitamin D2 (Ergocalciferol (Vitamin D2)) 1,250 Mcg Capsule 100,000 Units PO WEEK Omeprazole 40 Mg Capsule.dr 40 Mg PO BID Macrobid 100 mg Capsule (Nitrofurantoin Monohyd/M-Cryst) 100 Mg Capsule 1 Tab PO DAILY Levothyroxine (Levothyroxine Sodium) 125 Mcg Capsule 125 Mcg PO DAILY Folic Acid 1 Mg Tablet 1 Mg PO DAILY Novolin N (Insulin NPH Human Isophane) 100 Unit/1 Ml Vial 15 Unit SQ BID Ondansetron HCl 4 Mg Tablet 4 Mg PO DAILY Topiramate 50 Mg Tablet 50 Mg PO BID Xifaxan (Rifaximin) 200 Mg Tablet 600 Mg PO BID TAKES 3 (200MG) TABS Bumetanide 1 Mg Tablet 1 Mg PO DAILY PRN Magox 400 (Magnesium Oxide) 400 Mg Tablet 400 Mg PO BID Zyrtec (Cetirizine HCl) 10 Mg Tablet 10 Mg PO DAILY Assessment/Pt Instructions [facility] NH rounds Discharge Planning: <30 minutes discharge planning Discharge Instructions Discharge Diet: No Restrictions Discharge Physical Examination Vital Signs Vital Signs Date Time Temp Pulse Resp B/P (MAP) Pulse Ox O2 Delivery O2 Flow Rate FiO2 06/28/20 09:00 92 Room Air 06/28/20 07:50 36.8 82 16 140/63 (88) General Appearance: No Apparent Distress, WD/WN, Chronically ill Respiratory: Lungs Clear Cardiovascular: Regular Rate, Rhythm Neurologic/Psychiatric: Alert, Oriented x3, No Motor/Sensory Deficits, Normal Mood/Affect Allergies: Coded Allergies: Whuhedp-Vjk-Ltv Reductase Inhibitor (Verified Allergy, Intermediate, GI UPSET, N/V, 05/18/20) cefadroxil (Verified Allergy, Mild, 05/18/20) Sulfa (Sulfonamide Antibiotics) (Verified Allergy, Unknown, 05/18/20) oxycodone (Verified Allergy, Unknown, 05/18/20) "makes skin crawl" Discharge Summary Date of Admission Jun 27, 2020 at 07:20 Date of Discharge Discharge Date: Jun 28, 2020 Admission Diagnosis Assessment: Severe debility needs NH placement mcc ESLD Hepatic encephalopathy hx Chronic GIB DM HTN CAD CHF COPD Plan: [facility] Discharge Diagnosis (1) Physical debility Status: Acute MICHELLE GARCIA DO Jun 28, 2020 12:18
--- NOTE | 2020-06-28 12:30 | NUR ---
IV SITE DEACCESSED. SITE CLEAR. DTR NOTIFIED OF PLAN TO TRANSFER TO [facility] AT 1330 TODAY.
--- NOTE | 2020-06-28 12:49 | NUR ---
REPORT TO QUINT[facility] AT [facility].
--- NOTE | 2020-06-28 14:53 | NUR ---
Arrangements completed for pt's discharge to Skilled Unit at [facility]. Pt's and daughter notified and agreeable with pt transfer plan. Pt appeared more lethargic today but agreeable with plan. advised to take personal belongings to [facility].Discharge orders and medical evaluations and instructions given to [facility] Staff.
[2020-07-03] MEDS ORDERED: VITAMIN D2 1.25 MG (50,000 UNITS) CAP PO SCH (11:00)
== END 2020-06-28 14:15 ==
LOC: EDUNIT# 05:50 → ER 05:52 → 4TH 07:20 → UNDOADMOB 07:20 → 4TH 08:30 → UNDODISOB 06-28 14:15
PROVIDERS: ADMIT Internal Medicine; ATTEND Internal Medicine
DX: R53.81 Other malaise (principal); N18.9 Chronic kidney disease, unspecified; K92.2 Gastrointestinal hemorrhage, unspecified; I13.0 Hypertensive heart and chronic kidney disease with heart failure and stage 1 through stage 4 chronic kidney disease, or unspecified chronic kidney disease; I50.9 Heart failure, unspecified; E11.22 Type 2 diabetes mellitus with diabetic chronic kidney disease; J44.9 Chronic obstructive pulmonary disease, unspecified; K72.90 Hepatic failure, unspecified without coma; I48.91 Unspecified atrial fibrillation; E78.00 Pure hypercholesterolemia, unspecified; G89.29 Other chronic pain; M54.5 Low back pain; M19.90 Unspecified osteoarthritis, unspecified site; E03.9 Hypothyroidism, unspecified; F41.9 Anxiety disorder, unspecified; Z88.2 Allergy status to sulfonamides; Z88.1 Allergy status to other antibiotic agents; Z88.8 Allergy status to other drugs, medicaments and biological substances; Z88.5 Allergy status to narcotic agent; Z20.828 Contact with and (suspected) exposure to other viral communicable diseases; Z87.891 Personal history of nicotine dependence; Z95.5 Presence of coronary angioplasty implant and graft; Z80.0 Family history of malignant neoplasm of digestive organs; Z82.3 Family history of stroke
CPT/HCPCS: 70450; 71045; 72125; 72128; 72131; 80053 ×2; 81000; 82962 ×2; 85025 ×2; 94760; 97162; 97166; 97530; 97535; 99284; G0378; U0002; 36415; 87635

== ENCOUNTER 2020-06-29 13:37 | Inpatient (IN) | payer MEDICARE ==
[~2020-06-29] VITALS: Ht 167 cm; Wt 100.0 kg
--- NOTE | 2020-06-29 13:57 | ED General ---
General Chief Complaint: Altered Mental Status Stated Complaint: ALTERED MENTAL STATUS Source of Information: EMS, Assisted Records Exam Limitations: No Limitations History of Present Illness Date Seen by Provider: Jun 29, 2020 Time Seen by Provider: 13:56 Initial Comments To ER by EMS from [facility] [place]. She was just discharged from here to the air within the past 48 hours. They noticed her to be confused and somnolent and sent her back to the emergency room. Timing/Duration: 12-24 Hours Severity: Moderate Associated Systoms: Denies Symptoms Allergies and Home Medications Allergies Coded Allergies: Lmjnjuo-Jic-Jsk Reductase Inhibitor (Verified Allergy, Intermediate, GI UPSET, N/V, 05/18/20) cefadroxil (Verified Allergy, Mild, 05/18/20) Sulfa (Sulfonamide Antibiotics) (Verified Allergy, Unknown, 05/18/20) oxycodone (Verified Allergy, Unknown, 05/18/20) "makes skin crawl" Home Medications Bumetanide 1 Mg Tablet, 1 MG PO DAILY PRN for FLUID RETENTION, (Reported) Cetirizine HCl 10 Mg Tablet, 10 MG PO DAILY, (Reported) Ergocalciferol (Vitamin D2) 1,250 Mcg Capsule, 100,000 UNITS PO WEEK, (Reported) Folic Acid 1 Mg Tablet, 1 MG PO DAILY, (Reported) Insulin NPH Human Isophane 100 Unit/1 Ml Vial, 15 UNIT SQ BID, (Reported) Lactulose 20 Gm/30 Ml Solution, 20 GM PO BID Prescribed by: TOAMSA CARMONA on 06/18/20 1103 Levothyroxine Sodium 125 Mcg Capsule, 125 MCG PO DAILY, (Reported) Magnesium Oxide 400 Mg Tablet, 400 MG PO BID, (Reported) Nitrofurantoin Monohyd/M-Cryst 100 Mg Capsule, 1 TAB PO DAILY, (Reported) Omeprazole 40 Mg Capsule.dr, 40 MG PO BID, (Reported) Ondansetron HCl 4 Mg Tablet, 4 MG PO DAILY, (Reported) Topiramate 50 Mg Tablet, 50 MG PO BID, (Reported) Patient Home Medication List Home Medication List Reviewed: Yes Review of Systems Review of Systems Constitutional: see HPI, other (Unable to obtain) Past Feioxop-Acqgkw-Vgkxka Hx Patient Social History Type Used: Cigarettes Former Smoker, Quit: May 20, 1980 2nd Hand Smoke Exposure: No Recent Hopitalizations: No Immunizations Up To Date Tetanus Booster (TDap): Unknown PED Vaccines UTD: Yes Date of Pneumonia Vaccine: May 16, 2019 Date of Influenza Vaccine: Apr 18, 2020 Seasonal Allergies Seasonal Allergies: Yes Past Medical History Surgeries: Yes (PORT RIGHT CHEST) Adenoidectomy, Cardiac, CABG, Coronary Stent, Open Heart Surgery, Orthopedic, Tonsillectomy, Tubal Ligation Respiratory: Yes (LEFT PLEURAL EFFUSION-S/P THORACENTESIS; RESP FAILURE) Pneumonia, Sleep Apnea Currently Using CPAP: No Currently Using BIPAP: No Cardiac: Yes (CHF, STENT X1; CABG 02/16/2018 x 4 @ [facility];NSTEMI X 3) Atrial Fibrillation, Chronic Edema/Swelling, Coronary Artery Disease, Heart Attack, High Cholesterol, Hypertension Neurological: Yes (CHRONIC BASELINE CONFUSION;HEPATIC ENCEPHALOPATHY-MULT EPISODES) Dementia Reproductive Disorders: No Female Reproductive Disorders: Denies 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 LIVER DZ/ELEV AMMONIA) Gastroesophageal Reflux, Liver Disease/Jaundice, Gastrointestinal Bleed, Diverticulosis, Hemorrhoids, Polyps, Cirrhosis Musculoskeletal: Yes (POOR AMBULATION--USES WALKER SINCE CABG; L ANKLE AND KNEE SURGERIES) Degenerate Disk Disease, Arthritis, Chronic Back Pain, Fractures Endocrine: Yes (OBESITY) Diabetes, Insulin dep, Hypothyroidsim HEENT: No Loss of Vision: Denies Hearing Impairment: Denies Cancer: No Psychosocial: Yes Anxiety Integumentary: Yes Psoriasis Blood Disorders: Yes (CHRONIC ANEMIA-GI LOSS/GAVE SYNDROME; MULT TRANSFUSIONS/MULT ANTIBODIES) Adverse Reaction/Blood Tranf: Yes (Antibody JKA) Family Medical History Arthritis G8 BROTHER Completed stroke 19 MOTHER FH: anemia 19 MOTHER FH: lupus G8 SISTER FH: throat cancer 19 FATHER Hypertension G8 SISTER Myocardial infarction 19 MOTHER Thyroid disease 19 MOTHER G8 SISTER Hypertension, Stroke, Other Conditions/Hx PSH: -LEFT ANKLE SURGERY -LEFT KNEE SURGERY -CARDIAC CATHS--STENT X 1 -4 VESSEL CABG AT [facility] 02/16/18 -THORACENTESIS -TONSILLECTOMY/ADENOIDECTOMY -BTL -PORT RIGHT CHEST -LEXISCAN STRESS TEST 03/08/20--NORMAL. EF 70% Physical Exam Vital Signs Vital Signs - First Documented 06/29/20 13:57 Temp 37.6 Pulse 105 Resp 16 B/P (MAP) 150/63 (92) Pulse Ox 98 O2 Delivery Room Air Capillary Refill : Height, Weight, BMI Height: 5'4.00" Weight: 196lbs. 5.0oz. 89.311264oy; 37.52 BMI Method:Stated General Appearance: Chronically ill, Other (She is quite somnolent compared to her baseline. Does not flinch or move during IV start or when obtaining arterial blood gas) Eyes: Bilateral Eye Normal Inspection, Bilateral Eye PERRL, Bilateral Eye EOMI Neck: Full Range of Motion, Normal Inspection Respiratory: No Accessory Muscle Use, No Respiratory Distress Cardiovascular: Regular Rate, Rhythm, Normal Peripheral Pulses Gastrointestinal: Normal Bowel Sounds, Non Tender, Soft Extremity: Normal Capillary Refill, Normal Inspection Neurologic/Psychiatric: Alert, Oriented x3 Skin: Normal Color, Warm/Dry Focused Exam Lactate Level 06/29/20 13:49: Lactic Acid Level 1.99 Lactic Acid Level Laboratory Tests Test 06/29/20 13:49 Lactic Acid Level 1.99 MMOL/L (0.50-2.00) Procedures/Interventions Date of ETT Placement: May 30, 2018 Time of ETT Placement: 1330 Progress/Results/Core Measures Suspected Sepsis SIRS Temperature: Pulse: Respiratory Rate: Laboratory Tests 06/29/20 13:49: White Blood Count 10.3 Blood Pressure / Mean: 06/29/20 13:49: Lactic Acid Level 1.99 Laboratory Tests 06/29/20 13:49: Creatinine 1.99H, Platelet Count 161, Total Bilirubin 0.6 Results/Orders Lab Results Laboratory Tests Test 06/29/20 13:49 06/29/20 15:03 06/29/20 15:41 Range/Units White Blood Count 10.3 4.3-11.0 10^3/uL Red Blood Count 3.01 L 3.80-5.11 10^6/uL Hemoglobin 9.7 L 11.5-16.0 g/dL Hematocrit 29 L 35-52 % Mean Corpuscular Volume 97 80-99 fL Mean Corpuscular Hemoglobin 32 25-34 pg Mean Corpuscular Hemoglobin Concent 33 32-36 g/dL Red Cell Distribution Width 13.7 10.0-14.5 % Platelet Count 161 130-400 10^3/uL Mean Platelet Volume 10.9 9.0-12.2 fL Immature Granulocyte % (Auto) 0 % Neutrophils (%) (Auto) 86 H 42-75 % Lymphocytes (%) (Auto) 5 L 12-44 % Monocytes (%) (Auto) 7 0-12 % Eosinophils (%) (Auto) 2 0-10 % Basophils (%) (Auto) 1 0-10 % Neutrophils # (Auto) 8.9 H 1.8-7.8 10^3/uL Lymphocytes # (Auto) 0.5 L 1.0-4.0 10^3/uL Monocytes # (Auto) 0.7 0.0-1.0 10^3/uL Eosinophils # (Auto) 0.2 0.0-0.3 10^3/uL Basophils # (Auto) 0.1 0.0-0.1 10^3/uL Immature Granulocyte # (Auto) 0.0 0.0-0.1 10^3/uL Neutrophils % (Manual) 89 % Lymphocytes % (Manual) 6 % Monocytes % (Manual) 3 % Eosinophils % (Manual) 2 % Hypochromasia SLIGHT Blood Gas Puncture Site RT RAD Blood Gas Patient Temperature 99.6 Arterial Blood pH 7.34 *L 7.37-7.43 Arterial Blood Partial Pressure CO2 43 35-45 MMHG Arterial Blood Partial Pressure O2 67 L 79-93 MMHG Arterial Blood HCO3 22 L 23-27 MMOL/L Arterial Blood Total CO2 23.5 21.0-31.0 MMOL/L Arterial Blood Oxygen Saturation 92 L 94-100 % Arterial Blood Base Excess -2.5 -2.5-2.5 MMOL/L Osvaldo Test YES-POS Blood Gas Ventilator Setting NO Blood Gas Inspired Oxygen ROOM AIR Sodium Level 138 135-145 MMOL/L Potassium Level 4.3 3.6-5.0 MMOL/L Chloride Level 106 98-107 MMOL/L Carbon Dioxide Level 21 21-32 MMOL/L Anion Gap 11 5-14 MMOL/L Blood Urea Nitrogen 21 H 7-18 MG/DL Creatinine 1.99 H 0.60-1.30 MG/DL Estimat Glomerular Filtration Rate 25 BUN/Creatinine Ratio 11 Glucose Level 254 H 70-105 MG/DL Lactic Acid Level 1.99 0.50-2.00 MMOL/L Calcium Level 10.5 H 8.5-10.1 MG/DL Corrected Calcium 10.7 H 8.5-10.1 MG/DL Total Bilirubin 0.6 0.1-1.0 MG/DL Aspartate Amino Transf (AST/SGOT) 14 5-34 U/L Alanine Aminotransferase (ALT/SGPT) 8 0-55 U/L Alkaline Phosphatase 87 40-136 U/L Ammonia 78 H 11-32 UMOL/L Total Protein 7.3 6.4-8.2 GM/DL Albumin 3.7 3.2-4.5 GM/DL Procalcitonin 0.08 <0.10 NG/ML Urine Color YELLOW Urine Clarity CLOUDY Urine pH 6.0 5-9 Urine Specific [place] 1.020 1.016-1.022 Urine Protein TRACE H NEGATIVE Urine Glucose (UA) NEGATIVE NEGATIVE Urine Ketones NEGATIVE NEGATIVE Urine Nitrite NEGATIVE NEGATIVE Urine Bilirubin NEGATIVE NEGATIVE Urine Urobilinogen 0.2 < = 1.0 MG/DL Urine Leukocyte Esterase 2+ H NEGATIVE Urine RBC (Auto) 2+ H NEGATIVE Urine RBC 2-5 H /HPF Urine WBC TNTC H /HPF Urine Squamous Epithelial Cells 5-10 /HPF Urine Crystals NONE /LPF Urine Bacteria FEW H /HPF Urine Casts NONE /LPF Urine Mucus NEGATIVE /LPF Urine Culture Indicated YES My Orders Orders - MALLORIE FATIMA APRN Covid 19 Inhouse Test (06/29/20 13:38) Cbc With Automated Diff (06/29/20 13:38) Comprehensive Metabolic Panel (06/29/20 13:38) Ed Iv/Invasive Line Start (06/29/20 13:38) Blood Culture (06/29/20 13:38) Lactic Acid Analyzer (06/29/20 13:38) Procalcitonin (Pct) (06/29/20 13:38) Chest 1 View, Ap/Pa Only (06/29/20 13:38) Straight Cath (Urinary) (06/29/20 13:38) Arterial Blood Gas (06/29/20 13:55) Ammonia (06/29/20 13:55) Manual Differential (06/29/20 13:49) Ua Culture If Indicated (06/29/20 14:08) Ct Head Wo (06/29/20 14:16) Ns Iv 1000 Ml (Sodium Chloride 0.9%) (06/29/20 14:30) Urine Culture (06/29/20 15:03) Ceftriaxone For Iv Use (Rocephin For I (06/29/20 15:45) Arterial Blood Gas (06/29/20 15:39) Vital Signs/I&O 06/29/20 13:57 Temp 37.6 Pulse 105 Resp 16 B/P (MAP) 150/63 (92) Pulse Ox 98 O2 Delivery Room Air Capillary Refill : Diagnostic Imaging Diagonstic Imaging: Xray Plain Films/CT/US/NM/MRI: chest Comments NAME: YOLETTE PISANO [facility] REC#: [id number] PT STATUS: REG ER : 1955 PHYSICIAN: MALLORIE FATIMA APRN ADMIT DATE: 06/29/20/ER Draft Date of Exam:06/29/20 CHEST 1 VIEW, AP/PA ONLY INDICATION: Hypoxia. COMPARISON: 06/27/2020 FINDINGS: Single frontal radiographic view of the chest was obtained and shows low inspiratory volumes with increased patchy opacities in the left base. There is no large effusion or pneumothorax. Cardiac silhouette is mildly enlarged. Pulmonary vasculature is within normal limits. Sternotomy wires are noted. Osseous structures show no gross acute abnormalities. Right internal jugular Port-A-Cath is also seen with tip in the high SVC. IMPRESSION: 1. Low lung volumes with probable increased left basilar atelectasis. 2. Mild cardiomegaly. Dictated on workstation # [id number] Dict: 06/29/20 1413 Trans: 06/29/20 1432 [facility] [id number] Interpreted by: PAM SCALES MD Electronically signed by: Departure Communication (Admissions) I have hand written an order for intramuscular Rocephin 1 g daily x4 more days after today's 2 g IV dose. Impression Primary Impression: UTI (urinary tract infection) Disposition: HOME, SELF-CARE Condition: Stable Departure-Patient Inst. Decision time for Depature: 15:47 Referrals: JAMES TORRES MD (PCP/Family) Primary Care Physician Patient Instructions: Urinary Tract Infection, Adult (DC) Add. Discharge Instructions: Return to ER for any concerns. Follow-up with your doctor next week. All discharge instructions reviewed with patient and/or family. Voiced understanding. MALLORIE FATIMA APRN Jun 29, 2020 13:57
[2020-06-29 14:01] LABS: ABG BASE EXCESS -2.5 MMOL/L (-2.5-2.5); ABG OXYGEN SATURATION 92 % (94-100); ABG PCO2 43 MMHG (35-45); ABG PO2 67 MMHG (79-93); ABG TCO2 23.5 MMOL/L (21.0-31.0)
[2020-06-29 14:03] LABS: ABG PH 7.34 (7.37-7.43); ALLENS TEST YES-POS; BASOPHILS # (AUTO) 0.1 10^3/uL (0.0-0.1); BASOPHILS % (AUTO) 1 % (0-10); EOSINOPHILS # (AUTO) 0.2 10^3/uL (0.0-0.3); EOSINOPHILS % (AUTO) 2 % (0-10); HEMATOCRIT 29 % (35-52); HEMOGLOBIN 9.7 g/dL (11.5-16.0); INSPIRED O2 ROOM AIR; LYMPHOCYTES # (AUTO) 0.5 10^3/uL (1.0-4.0); LYMPHOCYTES % (AUTO) 5 % (12-44); MEAN CORPUSCULAR HEMOGLOBIN 32 pg (25-34); MEAN CORPUSCULAR HGB CONC 33 g/dL (32-36); MEAN CORPUSCULAR VOLUME 97 fL (80-99); MEAN PLATELET VOLUME 10.9 fL (9.0-12.2); MONOCYTES # (AUTO) 0.7 10^3/uL (0.0-1.0); MONOCYTES % (AUTO) 7 % (0-12); NEUTROPHILS # (AUTO) 8.9 10^3/uL (1.8-7.8); NEUTROPHILS % (AUTO) 86 % (42-75); PATIENT TEMP 99.6; PLATELET COUNT 161 10^3/uL (130-400); VENTILATOR NO; WHITE BLOOD COUNT 10.3 10^3/uL (4.3-11.0)
[2020-06-29 14:13] LABS: ALBUMIN 3.7 GM/DL (3.2-4.5); POTASSIUM 4.3 MMOL/L (3.6-5.0)
[2020-06-29 14:14] LABS: CALCIUM 10.5 MG/DL (8.5-10.1)
[2020-06-29 14:16] LABS: TOTAL PROTEIN 7.3 GM/DL (6.4-8.2)
[2020-06-29 14:17] LABS: BILIRUBIN,TOTAL 0.6 MG/DL (0.1-1.0)
[2020-06-29 14:19] LABS: CREATININE SERUM 1.99 MG/DL (0.60-1.30)
[2020-06-29 14:25] LABS: EOSINOPHILS % (MANUAL) 2 %; HYPOCHROMASIA SLIGHT; LYMPHOCYTES % (MANUAL) 6 %; MONOCYTES % (MANUAL) 3 %; NEUTROPHILS % (MANUAL) 89 %
[2020-06-29] MEDS ORDERED: NS IV 1000 ML 1,000 ML IV SCH (14:30)
--- NOTE | 2020-06-29 14:33 | Diagnostic Imaging Report ---
INDICATION: Hypoxia. COMPARISON: 06/27/2020 FINDINGS: Single frontal radiographic view of the chest was obtained and shows low inspiratory volumes with increased patchy opacities in the left base. There is no large effusion or pneumothorax. Cardiac silhouette is mildly enlarged. Pulmonary vasculature is within normal limits. Sternotomy wires are noted. Osseous structures show no gross acute abnormalities. Right internal jugular Port-A-Cath is also seen with tip in the high SVC. IMPRESSION: 1. Low lung volumes with probable increased left basilar atelectasis. 2. Mild cardiomegaly. Dictated by: Dictated on workstation # [id number]
--- NOTE | 2020-06-29 15:16 | Diagnostic Imaging Report ---
PROCEDURE: CT head without contrast. TECHNIQUE: Multiple contiguous axial images were obtained through the brain without the use of intravenous contrast. Auto Exposure Controls were utilized during the CT exam to meet ALARA standards for radiation dose reduction. INDICATION: Altered mental status. COMPARISON: 06/27/2020. CT HEAD: CT images of the head were obtained. FINDINGS: Ventricles and sulci are within normal limits for size. There is no intracranial hemorrhage identified. There is no abnormal mass effect or shift of midline structures. IMPRESSION: Unremarkable CT of the head. Dictated by: Dictated on workstation # [id number]
[2020-06-29 15:21] LABS: BILIRUBIN,URINE NEGATIVE (NEGATIVE); CLARITY,URINE CLOUDY; COLOR,URINE YELLOW; GLUCOSE, URINE (UA) NEGATIVE (NEGATIVE); KETONES,URINE NEGATIVE (NEGATIVE); LEUKOCYTE ESTERASE ,URINE 2+ (NEGATIVE); NITRITE,URINE NEGATIVE (NEGATIVE); PROTEIN,URINE TRACE (NEGATIVE)
[2020-06-29 15:33] LABS: BACTERIA,URINE FEW /HPF; WBC,URINE TNTC /HPF
[2020-06-29] MEDS ORDERED: cefTRIAXone FOR IV USE 2,000 MG in WATER (STERILE) FOR INJECTION 20 ML IV ONE (15:45)
[2020-06-29 15:48] LABS: ABG BASE EXCESS -1.5 MMOL/L (-2.5-2.5); ABG OXYGEN SATURATION 99 % (94-100); ABG PCO2 46 MMHG (35-45); ABG PO2 128 MMHG (79-93); ABG TCO2 24.8 MMOL/L (21.0-31.0)
[2020-06-29 15:54] LABS: ALLENS TEST YES-POS; INSPIRED O2 2L
[2020-06-29 15:55] LABS: PATIENT TEMP 99.7; VENTILATOR NO
[2020-06-29 15:56] LABS: ABG PH 7.33 (7.37-7.43)
[2020-06-29] MEDS ORDERED: BUMETANIDE 1 MG (BUMEX) TAB PO PRN (17:30)
--- NOTE | 2020-06-29 17:30 | NUR ---
YOLETTE PISANO admitted to room 416-1, with an admitting diagnosis of UTI, on 06/29/20 from ED via [facility], accompanied by STAFF. YOLETTE PISANO introduced to surroundings, call light, bed controls, phone, TV, temperature control, lights, meal times, smoking policy, visitor policy, side rail policy, bathrooms and showers. Patient Rights given to patient in the handbook. YOLETTE PISANO verbalizes understanding that [facility] is not responsible for the loss or damage to any personal effects or valuables that are kept in the patients posession during their hospitalization. The following Patient Care Plans were discussed with the PT: Discharge Planning, PAIN, AND UTI. YOLETTE PISANO verbalizes understanding of Interdisciplinary Patient Education. Patient and/or family were informed about the Rapid Response Team and its purpose.
[2020-06-29] MEDS ORDERED: ONDANSETRON 4 MG (ZOFRAN) ORAL DISSOLVE TAB PO PRN (17:45)
[2020-06-29] MEDS ORDERED: LACTATED RINGERS 1,000 ML IV ONE (18:02)
[2020-06-29] MEDS: LACTATED RINGERS 1,000 ML IV SCH (18:42)
[2020-06-29 19:59] VITALS: BP 136/67
[2020-06-29] MEDS ORDERED: LACTULOSE SYRUP 10GM/15ML (ENULOSE) 30ML UDC PO SCH (21:00)
[2020-06-29] MEDS ORDERED: NON-FORMULARY MEDICATION 1 EA EA (Topiramate 50 MG) PO SCH (21:00)
[2020-06-29] MEDS ORDERED: NON-FORMULARY MEDICATION 1 EA EA (Omeprazole 40 MG) PO SCH (21:00)
[2020-06-29] MEDS: MAGNESIUM OXIDE (MAG-OX)400 MG TAB PO SCH (21:08)
[2020-06-29] MEDS: toPIRamate 25 MG (TOPAMAX) TAB PO SCH (21:08)
[2020-06-29] MEDS: inSUlin NPH (NovoLIN N) 1 UNIT/0.01 ML (CHARGE PER UNIT) SQ SCH (21:08)
[2020-06-29] MEDS: PANTOPRAZOLE 40 MG (PROTONIX) TAB PO SCH (21:09)
[2020-06-29] MEDS: inSUlin ASPART (NovoLOG) 1 UNIT/0.01 ML (CHARGE PER UNIT) SC SCH (21:25)
[2020-06-30] VITALS: BP 134/60
[2020-06-30] MEDS: LACTATED RINGERS 1,000 ML IV SCH ×3 (02:17→18:48)
[2020-06-30 03:52] VITALS: BP 163/70
--- NOTE | 2020-06-30 05:09 | History & Physical-Hospitalist ---
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 Patient was found to have UTI and her baseline ammonia level of 78. Patient does not really awaken and she appears to be at the end stage of her life and has been for several years. Nurse states she thinks the patient has "given up." Source: RN/MD, old records Exam Limitations: clinical condition Date Seen 06/30/20 Time Seen by a Provider: 09:00 Attending Physician Sarah Morrell Holly R MD Referring Physician Date of Admission Jun 29, 2020 at 15:58 Home Medications & Allergies Home Medications Reviewed patient Home Medication Reconciliation performed by pharmacy medication reconciliations profile grinder technician and/or nursing. Patients Allergies have been reviewed. Allergies Allergies Coded Allergies Xfrezmv-Lrs-Qln Reductase Inhibitor (Verified Allergy, Intermediate, GI UPSET, N/V, 06/29/20) cefadroxil (Verified Allergy, Mild, 06/29/20) Sulfa (Sulfonamide Antibiotics) (Verified Allergy, Unknown, 06/29/20) oxycodone (Verified Allergy, Unknown, 06/29/20) "makes skin crawl" Past Dvdnjwe-Bvpjbq-Sgmtah Hx Past Med/Social Hx: Reviewed Nursing Past Med/Soc Hx, Reviewed and Corrections made Patient Social History Marrital Status: Employed/Student: unemployed Alcohol Use: Denies Use Recreational Drug Use: No Smoking Status: Never a Smoker Former Smoker, Quit: May 20, 1980 Type Used: Cigarettes 2nd Hand Smoke Exposure: No Recent Foreign Travel: No Contact w/other who traveled: No Recent Hopitalizations: No Recent Infectious Disease Expo: No Immunizations Up To Date Tetanus Booster (TDap): Unknown Pediatric: Yes Date of Pneumonia Vaccine: May 16, 2019 Date of Influenza Vaccine: Apr 18, 2020 Seasonal Allergies Seasonal Allergies: Yes Past Medical History Surgeries: Adenoidectomy, Cardiac, CABG, Coronary Stent, Open Heart Surgery, Orthopedic, Tonsillectomy, Tubal Ligation Respiratory: COPD, Sleep Apnea Currently Using CPAP: No Currently Using BIPAP: No Cardiac: Atrial Fibrillation, Chronic Edema/Swelling, Coronary Artery Disease, Heart Attack, High Cholesterol, Hypertension Neurological: Dementia Reproductive: No Sexually Transmitted Disease: No HIV/AIDS: No Female Reproductive Disorders: Denies Menopausal Genitourinary: Bladder Infection, Renal Failure Gastrointestinal: Gastroesophageal Reflux, Liver Disease/Jaundice, Gastrointestinal Bleed, Diverticulosis, Hemorrhoids, Polyps, Cirrhosis Musculoskeletal: Degenerate Disk Disease, Arthritis, Chronic Back Pain, Fractures Endocrine: Diabetes, Insulin dep, Hypothyroidsim Loss of Vision: Denies Hearing Impairment: Denies Psychosocial: Anxiety Skin/Integumentary: Psoriasis History of Blood Disorders: Yes (CHRONIC ANEMIA-GI LOSS/GAVE SYNDROME; MULT TRANSFUSIONS/MULT ANTIBODIES) Adverse Reaction to Blood Wright: Yes (Antibody JKA) Family History Arthritis G8 BROTHER Completed stroke 19 MOTHER FH: anemia 19 MOTHER FH: lupus G8 SISTER FH: throat cancer 19 FATHER Hypertension G8 SISTER Myocardial infarction 19 MOTHER Thyroid disease 19 MOTHER G8 SISTER Hypertension, Stroke, Other Conditions/Hx PSH: -LEFT ANKLE SURGERY -LEFT KNEE SURGERY -CARDIAC CATHS--STENT X 1 -4 VESSEL CABG AT [facility] 02/16/18 -THORACENTESIS -TONSILLECTOMY/ADENOIDECTOMY -BTL -PORT RIGHT CHEST -LEXISCAN STRESS TEST 03/08/20--NORMAL. EF 70% Review of Systems Constitutional: see HPI, malaise, weakness Psychiatric/Neurological: Other (confusion) Physical Exam Physical Exam Vital Signs Vital Signs - First Documented 06/29/20 06/29/20 06/29/20 13:56 13:57 17:02 Temp 37.6 Pulse 86 Resp 16 B/P (MAP) 150/63 (92) Pulse Ox 98 O2 Delivery Room Air O2 Flow Rate 2.00 Capillary Refill : Less Than 3 Seconds Height, Weight, BMI Height: 5'4.00" Weight: 196lbs. 5.0oz. 89.272160ha; 35.85 BMI Method:Stated General Appearance: No Apparent Distress, Chronically ill Respiratory: Lungs Clear Cardiovascular: Regular Rate, Rhythm Neurologic/Psychiatric: Disoriented Results Results/Procedures Labs Laboratory Tests 06/29/20 13:49 06/30/20 05:33 Patient resulted labs reviewed. 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
[2020-06-30 06:06] LABS: BASOPHILS % (AUTO) 0 % (0-10); EOSINOPHILS # (AUTO) 0.4 10^3/uL (0.0-0.3); EOSINOPHILS % (AUTO) 5 % (0-10); HEMATOCRIT 26 % (35-52); HEMOGLOBIN 8.2 g/dL (11.5-16.0); LYMPHOCYTES # (AUTO) 0.7 10^3/uL (1.0-4.0); LYMPHOCYTES % (AUTO) 9 % (12-44); MEAN CORPUSCULAR HEMOGLOBIN 31 pg (25-34); MEAN CORPUSCULAR HGB CONC 32 g/dL (32-36); MEAN CORPUSCULAR VOLUME 97 fL (80-99); MEAN PLATELET VOLUME 10.9 fL (9.0-12.2); MONOCYTES # (AUTO) 0.6 10^3/uL (0.0-1.0); MONOCYTES % (AUTO) 8 % (0-12); NEUTROPHILS # (AUTO) 6.4 10^3/uL (1.8-7.8); NEUTROPHILS % (AUTO) 79 % (42-75); PLATELET COUNT 130 10^3/uL (130-400); WHITE BLOOD COUNT 8.1 10^3/uL (4.3-11.0)
[2020-06-30 06:20] LABS: ALBUMIN 3.1 GM/DL (3.2-4.5)
[2020-06-30 06:21] LABS: CALCIUM 8.8 MG/DL (8.5-10.1)
[2020-06-30 06:23] LABS: TOTAL PROTEIN 6.2 GM/DL (6.4-8.2)
[2020-06-30 06:24] LABS: BILIRUBIN,TOTAL 0.4 MG/DL (0.1-1.0)
[2020-06-30 06:26] LABS: CREATININE SERUM 1.52 MG/DL (0.60-1.30)
[2020-06-30] MEDS: inSUlin ASPART (NovoLOG) 1 UNIT/0.01 ML (CHARGE PER UNIT) SC SCH ×4 (06:32→21:12)
[2020-06-30] MEDS: LEVOTHYROXINE 125 MCG (LEVOTHROID) TABLET PO SCH (06:49)
--- NOTE | 2020-06-30 07:37 | NUR ---
Received in nursing report to clarify rocephin with physician for concerns of allergic response r/t coded allergy cephadroxil. Spoke with pharmacist Christiano, to clarify 0900 Rocephin dose. Patient has received 2g in ED with no prior rxn.
[2020-06-30 08:00] VITALS: BP 159/69
--- NOTE | 2020-06-30 08:27 | NUR ---
PATIENT IS SOMNOLENT. REC'D IN REPORT THIS IS UNCHANGED FROM EVENING. PATIENT OPENS EYES ONLY TO VOICE. WILL DRINK WITH [facility]-UUIU-YVYM VERBAL INSTRUCTION. REFUSED BREAKFAST. SHAKES HEAD 'NO' WHEN ASKED IF SHE IS IN PAIN. PATIENT MUMBLES UNINTELLIGIBLE WORDS . GENERALIZED TRACE PITTING EDEMA NOTED. SCDS ON. RR IS EVEN AND UNLABORED AT 14.
[2020-06-30] MEDS ORDERED: cefTRIAXone 1,000 MG/SWFI 10 ML IV PUSH IV SCH ×2 (09:00)
[2020-06-30] MEDS ORDERED: NON-FORMULARY MEDICATION 1 EA EA (Cetirizine HCl (Zyrtec) 10 MG) PO SCH (09:00)
[2020-06-30] MEDS ORDERED: LEVOTHYROXINE SODIUM 125 MCG PO SCH (09:00)
[2020-06-30] MEDS ORDERED: NON-FORMULARY MEDICATION 1 EA EA (Ondansetron HCl 4 MG) PO SCH (09:00)
[2020-06-30] MEDS ORDERED: MEROPENEM 1,000 MG in WATER (STERILE) FOR INJECTION 20 ML IV SCH (09:15)
[2020-06-30] MEDS: MEROPENEM 500 MG/SWFI 10 ML IV PUSH IV SCH ×4 (10:21→17:45)
[2020-06-30] MEDS: MAGNESIUM OXIDE (MAG-OX)400 MG TAB PO SCH ×2 (10:21→21:12)
[2020-06-30] MEDS: toPIRamate 25 MG (TOPAMAX) TAB PO SCH ×2 (10:21→21:12)
[2020-06-30] MEDS: LORATADINE (CLARITIN) 10 MG TAB PO SCH (10:21)
[2020-06-30] MEDS: PANTOPRAZOLE 40 MG (PROTONIX) TAB PO SCH ×2 (10:21→21:12)
[2020-06-30] MEDS: LACTULOSE SYRUP 10GM/15ML (ENULOSE) 30ML UDC PO SCH ×3 (10:21→21:12)
[2020-06-30] MEDS: FOLIC ACID 1 MG TAB PO SCH (10:21)
[2020-06-30] MEDS: inSUlin NPH (NovoLIN N) 1 UNIT/0.01 ML (CHARGE PER UNIT) SQ SCH ×2 (10:28→21:12)
--- NOTE | 2020-06-30 10:28 | NUR ---
PATIENT FED 2 CONTAINERS APPLESAUCE BY THIS RN. WIL ADMINSTERED. WILL CONT TO MAKE PATIENT FEEDER FOR INTAKE
--- NOTE | 2020-06-30 10:56 | NUR ---
SPOKE WITH SARWAT FORD AND GIVEN UPDATE ON PATIENT. NO FURTHER QUESTIONS AT THIS TIME.
[2020-06-30 12:00] VITALS: BP 158/70
[2020-06-30 15:49] VITALS: BP 151/70
[2020-06-30 19:24] VITALS: BP 158/67
[2020-07-01] VITALS (7 sets, daily range): BP systolic 107–209; BP diastolic 55–82
[2020-07-01] MEDS: MEROPENEM 500 MG/SWFI 10 ML IV PUSH IV SCH ×6 (02:07→18:10)
[2020-07-01] MEDS: LEVOTHYROXINE 125 MCG (LEVOTHROID) TABLET PO SCH (06:25)
[2020-07-01] MEDS: inSUlin ASPART (NovoLOG) 1 UNIT/0.01 ML (CHARGE PER UNIT) SC SCH ×4 (06:25→21:09)
[2020-07-01 07:00] LABS: BASOPHILS % (AUTO) 0 % (0-10); EOSINOPHILS # (AUTO) 0.2 10^3/uL (0.0-0.3); EOSINOPHILS % (AUTO) 3 % (0-10); HEMATOCRIT 25 % (35-52); HEMOGLOBIN 8.1 g/dL (11.5-16.0); LYMPHOCYTES # (AUTO) 0.8 10^3/uL (1.0-4.0); LYMPHOCYTES % (AUTO) 10 % (12-44); MEAN CORPUSCULAR HEMOGLOBIN 32 pg (25-34); MEAN CORPUSCULAR HGB CONC 32 g/dL (32-36); MEAN CORPUSCULAR VOLUME 98 fL (80-99); MEAN PLATELET VOLUME 10.7 fL (9.0-12.2); MONOCYTES # (AUTO) 0.8 10^3/uL (0.0-1.0); MONOCYTES % (AUTO) 11 % (0-12); NEUTROPHILS # (AUTO) 5.8 10^3/uL (1.8-7.8); NEUTROPHILS % (AUTO) 76 % (42-75); PLATELET COUNT 131 10^3/uL (130-400); WHITE BLOOD COUNT 7.7 10^3/uL (4.3-11.0)
[2020-07-01 07:10] LABS: ALBUMIN 3.1 GM/DL (3.2-4.5); POTASSIUM 4.6 MMOL/L (3.6-5.0)
[2020-07-01 07:11] LABS: CALCIUM 8.9 MG/DL (8.5-10.1)
[2020-07-01 07:13] LABS: TOTAL PROTEIN 6.4 GM/DL (6.4-8.2)
[2020-07-01 07:14] LABS: BILIRUBIN,TOTAL 0.5 MG/DL (0.1-1.0)
[2020-07-01 07:16] LABS: CREATININE SERUM 1.54 MG/DL (0.60-1.30)
--- NOTE | 2020-07-01 08:01 | Progress Note - Hospitalist ---
Subjective HPI/CC On Admission Date Seen by Provider: Jul 01, 2020 Time Seen by Provider: 12:00 CC: AMS HPI: This is a 64yoWF who was just DC from my service and sent to NH for fpc care who presented to the ER with AMS and somnolence. Patient was found to have UTI and her baseline ammonia level of 78. Patient does not really awaken and she appears to be at the end stage of her life and has been for several years. Nurse states she thinks the patient has "given up. Subjective/Events-last exam Patient sleeps constantly Wakes up to eat a bit by feeder and take her Lactulose Creat stable Hgb stable Patient appears to be a hospice candidate Review of Systems Neurological: Confusion Focused Exam Lactate Level 06/29/20 13:49: Lactic Acid Level 1.99 Objective Exam Vital Signs Vital Signs Date Time Temp Pulse Resp B/P (MAP) Pulse Ox O2 Delivery O2 Flow Rate FiO2 07/01/20 15:53 37.1 101 20 146/65 (92) 97 Nasal Cannula 3.00 Capillary Refill : Less Than 3 Seconds General Appearance: No Apparent Distress, WD/WN, Chronically ill Respiratory: Lungs Clear Cardiovascular: Regular Rate, Rhythm Results/Procedures Lab Laboratory Tests 07/01/20 06:52 Patient resulted labs reviewed. 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
[2020-07-01] MEDS: PANTOPRAZOLE 40 MG (PROTONIX) TAB PO SCH ×2 (08:34→21:09)
[2020-07-01] MEDS: inSUlin NPH (NovoLIN N) 1 UNIT/0.01 ML (CHARGE PER UNIT) SQ SCH ×2 (08:35→21:09)
[2020-07-01] MEDS: LORATADINE (CLARITIN) 10 MG TAB PO SCH (08:35)
[2020-07-01] MEDS: LACTULOSE SYRUP 10GM/15ML (ENULOSE) 30ML UDC PO SCH ×3 (08:35→21:09)
[2020-07-01] MEDS: FOLIC ACID 1 MG TAB PO SCH (08:35)
[2020-07-01] MEDS: toPIRamate 25 MG (TOPAMAX) TAB PO SCH ×2 (08:35→21:09)
[2020-07-01] MEDS: MAGNESIUM OXIDE (MAG-OX)400 MG TAB PO SCH ×2 (08:35→21:09)
[2020-07-01] MEDS: AMPICILLIN/SULBACTAM INJECTION 1.5 GM in NS (IVPB) 100 ML IV SCH (21:09)
[2020-07-01] MEDS: LACTATED RINGERS 1,000 ML IV SCH (21:12)
[2020-07-02] MEDS: AMPICILLIN/SULBACTAM INJECTION 1.5 GM in NS (IVPB) 100 ML IV SCH ×4 (02:57→21:19)
[2020-07-02 04:00] VITALS: BP 164/70
[2020-07-02 05:12] LABS: BASOPHILS % (AUTO) 0 % (0-10); EOSINOPHILS # (AUTO) 0.1 10^3/uL (0.0-0.3); EOSINOPHILS % (AUTO) 2 % (0-10); HEMATOCRIT 24 % (35-52); LYMPHOCYTES # (AUTO) 0.9 10^3/uL (1.0-4.0); LYMPHOCYTES % (AUTO) 10 % (12-44); MEAN CORPUSCULAR HEMOGLOBIN 32 pg (25-34); MEAN CORPUSCULAR HGB CONC 33 g/dL (32-36); MEAN CORPUSCULAR VOLUME 97 fL (80-99); MEAN PLATELET VOLUME 11.7 fL (9.0-12.2); MONOCYTES # (AUTO) 0.9 10^3/uL (0.0-1.0); MONOCYTES % (AUTO) 11 % (0-12); NEUTROPHILS # (AUTO) 5.8 10^3/uL (1.8-7.8); NEUTROPHILS % (AUTO) 71 % (42-75); PLATELET COUNT 132 10^3/uL (130-400); WHITE BLOOD COUNT 8.2 10^3/uL (4.3-11.0)
[2020-07-02 05:24] LABS: ALBUMIN 3.2 GM/DL (3.2-4.5)
[2020-07-02 05:25] LABS: POTASSIUM 4.9 MMOL/L (3.6-5.0)
[2020-07-02 05:26] LABS: CALCIUM 8.9 MG/DL (8.5-10.1)
[2020-07-02 05:27] LABS: TOTAL PROTEIN 7.1 GM/DL (6.4-8.2)
[2020-07-02 05:29] LABS: BILIRUBIN,TOTAL 0.6 MG/DL (0.1-1.0)
[2020-07-02 05:31] LABS: CREATININE SERUM 1.44 MG/DL (0.60-1.30)
[2020-07-02] MEDS: LEVOTHYROXINE 125 MCG (LEVOTHROID) TABLET PO SCH (06:00)
[2020-07-02] MEDS: LACTATED RINGERS 1,000 ML IV SCH ×2 (06:00→23:30)
[2020-07-02] MEDS: inSUlin ASPART (NovoLOG) 1 UNIT/0.01 ML (CHARGE PER UNIT) SC SCH ×4 (06:00→20:40)
[2020-07-02 08:37] VITALS: BP 144/63
[2020-07-02] MEDS: LORATADINE (CLARITIN) 10 MG TAB PO SCH (09:01)
[2020-07-02] MEDS: FOLIC ACID 1 MG TAB PO SCH (09:01)
[2020-07-02] MEDS: LACTULOSE SYRUP 10GM/15ML (ENULOSE) 30ML UDC PO SCH ×3 (09:01→21:20)
[2020-07-02] MEDS: PANTOPRAZOLE 40 MG (PROTONIX) TAB PO SCH ×2 (09:02→21:19)
[2020-07-02] MEDS: MAGNESIUM OXIDE (MAG-OX)400 MG TAB PO SCH ×2 (09:02→21:19)
[2020-07-02] MEDS: inSUlin NPH (NovoLIN N) 1 UNIT/0.01 ML (CHARGE PER UNIT) SQ SCH ×2 (09:17→21:20)
[2020-07-02] MEDS: toPIRamate 25 MG (TOPAMAX) TAB PO SCH ×2 (10:05→21:19)
[2020-07-02 11:51] VITALS: BP 156/70
--- NOTE | 2020-07-02 12:21 | NUR ---
Palliative care RN in to see patient. She did open her eyes when spoken to and light touch on her arm. She was very groggy and slurry of speech, She did not know that today was her birthday. Will continue to follow and offer support as able.
--- NOTE | 2020-07-02 13:28 | Progress Note ---
Subjective Subjective/Events-last exam Patient opens eyes to her names and follows some commands but not able to talk and falls back to sleep. Groans with exam or movement. Review of Systems Unable to assess due to patient condition Focused Exam Lactate Level 06/29/20 13:49: Lactic Acid Level 1.99 Objective Exam Last Set of Vital Signs Vital Signs Date Time Temp Pulse Resp B/P (MAP) Pulse Ox O2 Delivery O2 Flow Rate FiO2 07/02/20 12:40 Nasal Cannula 3.00 07/02/20 11:51 37.4 99 20 156/70 (98) 97 Capillary Refill : Less Than 3 Seconds I&O Intake and Output 07/02/20 00:00 Intake Total 1540 ml Output Total 1125 ml Balance 415 ml Intake Oral 530 ml IV Total 1010 ml Output Urine Total 1125 ml # Bowel Movements 2 General: No Acute Distress, Other (Opens eyes to name otherwise does not respond) Lungs: Clear to Auscultation Heart: Regular Rate, Other (systolic murmur) Abdomen: Soft Extremities: Other (2 pitting edema bilaterally) Results/Procedures Lab Laboratory Tests 07/01/20 15:56: Glucometer 177H 07/01/20 20:45: Glucometer 318H 07/02/20 04:40: Sodium Level 138, Potassium Level 4.9, Chloride Level 109H, Carbon Dioxide Level 20L, Anion Gap 9, Blood Urea Nitrogen 18, Creatinine 1.44H, Estimat Glomerular Filtration Rate 37, BUN/Creatinine Ratio 13, Glucose Level 205H, Calcium Level 8.9, Corrected Calcium 9.5, Total Bilirubin 0.6, Aspartate Amino Transf (AST/SGOT) 28, Alanine Aminotransferase (ALT/SGPT) 9, Alkaline Phosphatase 72, Total Protein 7.1, Albumin 3.2 07/02/20 04:45: White Blood Count 8.2, Red Blood Count 2.52L, Hemoglobin 8.0L, Hematocrit 24L, Mean Corpuscular Volume 97, Mean Corpuscular Hemoglobin 32, Mean Corpuscular Hemoglobin Concent 33, Red Cell Distribution Width 13.4, Platelet Count 132, Mean Platelet Volume 11.7, Immature Granulocyte % (Auto) 7, Neutrophils (%) (Auto) 71, Lymphocytes (%) (Auto) 10L, Monocytes (%) (Auto) 11, Eosinophils (%) (Auto) 2, Basophils (%) (Auto) 0, Neutrophils # (Auto) 5.8, Lymphocytes # (Auto) 0.9L, Monocytes # (Auto) 0.9, Eosinophils # (Auto) 0.1, Basophils # (Auto) 0.0, Immature Granulocyte # (Auto) 0.5H 07/02/20 05:28: Glucometer 209H 07/02/20 10:47: Glucometer 201H Microbiology 06/29/20 Urine Culture - Final, Complete Escherichia coli 06/29/20 Blood Culture - Preliminary, Resulted No growth Assessment/Plan Assessment/Plan (1) Hepatic encephalopathy Status: Acute Assessment & Plan: - Not consistently taking Lactulose and was taken off Xifaxan prior to going to [place], Ammonia elevated, Continue Lactulose (2) UTI (urinary tract infection) Status: Acute Assessment & Plan: - Montero sensitive Ecoli, Continue Unasyn Qualifiers: Qualified Codes: N30.01 - Acute cystitis with hematuria (3) Bjuiy-tq-fbigctw kidney injury Status: Acute Assessment & Plan: - Improving with gentle hydration (4) Insulin dependent diabetes mellitus Status: Chronic (5) 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
--- NOTE | 2020-07-02 15:38 | NUR ---
"RD ASSESSMENT PMHx: COPD; afib; CAD; hypercholesterolemia; HTN; dementia; renal failure; GERD; cirrhosis; DM; hypothyroidism; PT INTERACTION: Received dietary consult for MST score. Note pt was very asleep during both attempts at nutrition assessment. Note pt has hx of dementia, per chart review. Note all diet information for assessment is per chart review. Note avg PO intake <25% x2d. Note unable to determine recent issues with n/v/c/d. Note last BM was 07/01, and pt not currently on bowel regimen per chart review. Note unable to determine current level of DM management, and unable to determine recent HbA1c, per chart review. Note recent 4# wt gain x4mon, per chart review. Upon visual assessment, pt appears go be very well nourished with no visible signs of muscle/fat wasting and a BMI of 35.9 (Obese class II for age). Given visual assessment, PO intake, and wt hx, pt does not meet criteria for malnutrition per ASPEN guidelines. Est. kcal needs: 4017-6509 kcal | 15-18 kcal/kg Est. Pro needs: 80-100 g Pro | 0.8-1.0 g Pro/kg PES STATEMENT: Inadequate oral intake (NI-2.1) related to loss of appetite, as evidenced by pt interview, and avg PO intake <25% x2d. INTERVENTION: Continue with current diet order of DYS[employer] diet. Add Glucerna (vary) to meals TID, for increased kcal intake. Provides 220 kcal and 10 g Pro per serving. Did not offer diet education on DM management at this time. May attempt to offer prior to discharge. Will continue to follow and reassess as pt needs, intake, and status change. Urbano HIGGINS, MS RD LD [phone] cell"
[2020-07-02 16:30] VITALS: BP 163/69
[2020-07-02 19:53] VITALS: BP 168/67
[2020-07-03 00:40] VITALS: BP 141/61
[2020-07-03] MEDS: AMPICILLIN/SULBACTAM INJECTION 1.5 GM in NS (IVPB) 100 ML IV SCH ×4 (03:03→19:52)
[2020-07-03 04:51] VITALS: BP 125/57
[2020-07-03] MEDS: LEVOTHYROXINE 125 MCG (LEVOTHROID) TABLET PO SCH (05:28)
[2020-07-03 05:37] LABS: BASOPHILS % (AUTO) 0 % (0-10); EOSINOPHILS # (AUTO) 0.3 10^3/uL (0.0-0.3); EOSINOPHILS % (AUTO) 5 % (0-10); HEMATOCRIT 23 % (35-52); HEMOGLOBIN 7.3 g/dL (11.5-16.0); LYMPHOCYTES # (AUTO) 0.6 10^3/uL (1.0-4.0); LYMPHOCYTES % (AUTO) 11 % (12-44); MEAN CORPUSCULAR HEMOGLOBIN 32 pg (25-34); MEAN CORPUSCULAR HGB CONC 32 g/dL (32-36); MEAN CORPUSCULAR VOLUME 97 fL (80-99); MONOCYTES # (AUTO) 0.6 10^3/uL (0.0-1.0); MONOCYTES % (AUTO) 11 % (0-12); NEUTROPHILS # (AUTO) 3.7 10^3/uL (1.8-7.8); NEUTROPHILS % (AUTO) 72 % (42-75); PLATELET COUNT 117 10^3/uL (130-400); WHITE BLOOD COUNT 5.1 10^3/uL (4.3-11.0)
[2020-07-03] MEDS: inSUlin ASPART (NovoLOG) 1 UNIT/0.01 ML (CHARGE PER UNIT) SC SCH ×4 (05:39→21:44)
[2020-07-03 05:51] LABS: POTASSIUM 4.2 MMOL/L (3.6-5.0)
[2020-07-03 05:52] LABS: CALCIUM 8.9 MG/DL (8.5-10.1)
[2020-07-03 05:57] LABS: CREATININE SERUM 1.27 MG/DL (0.60-1.30)
[2020-07-03 08:00] VITALS: BP 121/69
[2020-07-03] MEDS: toPIRamate 25 MG (TOPAMAX) TAB PO SCH ×2 (08:56→21:44)
[2020-07-03] MEDS: PANTOPRAZOLE 40 MG (PROTONIX) TAB PO SCH ×2 (08:56→21:44)
[2020-07-03] MEDS: MAGNESIUM OXIDE (MAG-OX)400 MG TAB PO SCH ×2 (08:56→21:44)
[2020-07-03] MEDS: FOLIC ACID 1 MG TAB PO SCH (09:00)
[2020-07-03] MEDS: LACTULOSE SYRUP 10GM/15ML (ENULOSE) 30ML UDC PO SCH ×3 (09:00→19:52)
[2020-07-03] MEDS: LORATADINE (CLARITIN) 10 MG TAB PO SCH (09:00)
[2020-07-03] MEDS ORDERED: VITAMIN D2 1.25 MG (50,000 UNITS) CAP PO SCH (09:00)
[2020-07-03] MEDS: inSUlin NPH (NovoLIN N) 1 UNIT/0.01 ML (CHARGE PER UNIT) SQ SCH ×2 (09:00→21:44)
--- NOTE | 2020-07-03 10:27 | NUR ---
PALLIATIVE CARE RN in to see patient. She voiced that she wants to get out of here..when pushed further, she agreed that she wanted to go [facility] where she was prior to this admission. I have spoken to patient's daughter, Inocencia, regarding discharge options including back to [facility] skilled, or [facility] with hospice vs home with hospice. She indicated that she is concerned if we are at the end of life that she would want to spend as much time with her as possible and they might not be able to do that if she were to dc to [facility]. We talked about how hard it is to care for someone in this stage of life and that it needed to be a fully thought out decision, involving her father as well. Will follow back up with her tomorrow to see which was they are leaning. BERNY Gan is also working with patient.. and feels return to [facility] would be the best option.
[2020-07-03 12:00] VITALS: BP 148/68
[2020-07-03 15:30] VITALS: BP 116/64
[2020-07-03] MEDS: LACTATED RINGERS 1,000 ML IV SCH (17:16)
[2020-07-03 20:35] VITALS: BP 162/53
--- NOTE | 2020-07-03 21:35 | Progress Note ---
Subjective Subjective/Events-last exam Patient awake this AM and able to answer simple questions. States that she is having some pain but unable to voice where. Review of Systems Pulmonary: No Dyspnea, No Cough Cardiovascular: No: Chest Pain, Palpitations Gastrointestinal: Abdominal Pain; No: Nausea, Vomiting Genitourinary: Frequency Neurological: Weakness, Incoordination Objective Exam Last Set of Vital Signs Vital Signs Date Time Temp Pulse Resp B/P (MAP) Pulse Ox O2 Delivery O2 Flow Rate FiO2 07/03/20 20:35 37.1 92 22 162/53 (89) 97 Nasal Cannula 3.00 Capillary Refill : Less Than 3 SecondsLess Than 3 Seconds I&O Intake and Output 07/03/20 00:00 Intake Total 720 ml Output Total 1075 ml Balance -355 ml Intake Oral 520 ml IV Total 200 ml Output Urine Total 1075 ml # Bowel Movements 2 General: Other (Awakes to name, unable to answer complex questions) Lungs: Clear to Auscultation, Normal Air Movement Heart: Regular Rate, Other (systolic murmur) Abdomen: Soft, No Tenderness Extremities: Other (2+ pitting edema bilaterally) Results/Procedures Lab Laboratory Tests 07/03/20 05:12: White Blood Count 5.1, Red Blood Count 2.31L, Hemoglobin 7.3L, Hematocrit 23L, Mean Corpuscular Volume 97, Mean Corpuscular Hemoglobin 32, Mean Corpuscular Hemoglobin Concent 32, Red Cell Distribution Width 13.3, Platelet Count 117L, Mean Platelet Volume 11.0, Immature Granulocyte % (Auto) 0, Neutrophils (%) (Auto) 72, Lymphocytes (%) (Auto) 11L, Monocytes (%) (Auto) 11, Eosinophils (%) (Auto) 5, Basophils (%) (Auto) 0, Neutrophils # (Auto) 3.7, Lymphocytes # (Auto) 0.6L, Monocytes # (Auto) 0.6, Eosinophils # (Auto) 0.3, Basophils # (Auto) 0.0, Immature Granulocyte # (Auto) 0.0, Sodium Level 140, Potassium Level 4.2, Chloride Level 111H, Carbon Dioxide Level 22, Anion Gap 7, Blood Urea Nitrogen 19H, Creatinine 1.27, Estimat Glomerular Filtration Rate 42, BUN/Creatinine Ratio 15, Glucose Level 183H, Calcium Level 8.9, Thyroid Stimulating Hormone (TSH) 0.41 07/03/20 05:36: Glucometer 177H 07/03/20 10:59: Glucometer 170H 07/03/20 16:32: Glucometer 210H 07/03/20 20:23: Glucometer 204H Microbiology 06/29/20 Urine Culture - Final, Complete Escherichia coli 06/29/20 Blood Culture - Preliminary, Resulted No growth Assessment/Plan Assessment/Plan (1) Hepatic encephalopathy Status: Acute Assessment & Plan: - Not consistently taking Lactulose and was taken off Xifaxan prior to going to [place], Ammonia elevated, Continue Lactulose 07/03: Continue lactulose, mental status slightly improving (2) UTI (urinary tract infection) Status: Acute Assessment & Plan: - Montero sensitive Ecoli, Continue Unasyn Qualifiers: Qualified Codes: N30.01 - Acute cystitis with hematuria (3) Brnwu-ag-pixzxxc kidney injury Status: Acute Assessment & Plan: - Improving with gentle hydration 07/03: At her baseline (4) Insulin dependent diabetes mellitus Status: Chronic (5) 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
--- NOTE | 2020-07-03 22:20 | NUR ---
This pt's daughter, Inocencia, called this nurse at 2004. She expressed her concern about her frustration with the hospital not calling her and giving updates about Deborah. I gave her an update on this pt, and then she verbalized that Dr. Morrell was supposed to call her and talk to her. I told her I would not know anything about that, and she requested that I write her phone number down and to pass onto dayshift when makes her rounds to see Deborah, to call her. Inocencia's phone number is [phone].
[2020-07-04] VITALS: BP 143/54
[2020-07-04] MEDS: AMPICILLIN/SULBACTAM INJECTION 1.5 GM in NS (IVPB) 100 ML IV SCH ×4 (02:28→20:41)
[2020-07-04 04:00] VITALS: BP 123/57
[2020-07-04] MEDS: LEVOTHYROXINE 125 MCG (LEVOTHROID) TABLET PO SCH (05:29)
[2020-07-04] MEDS: inSUlin ASPART (NovoLOG) 1 UNIT/0.01 ML (CHARGE PER UNIT) SC SCH ×4 (05:53→20:41)
[2020-07-04 05:54] LABS: HEMATOCRIT 22 % (35-52); HEMOGLOBIN 7.1 g/dL (11.5-16.0); LYMPHOCYTES % (AUTO) 11 % (12-44); MEAN CORPUSCULAR HEMOGLOBIN 31 pg (25-34); MEAN CORPUSCULAR HGB CONC 32 g/dL (32-36); MEAN CORPUSCULAR VOLUME 97 fL (80-99); MEAN PLATELET VOLUME 10.7 fL (9.0-12.2); MONOCYTES % (AUTO) 11 % (0-12); NEUTROPHILS % (AUTO) 74 % (42-75); PLATELET COUNT 116 10^3/uL (130-400); WHITE BLOOD COUNT 4.8 10^3/uL (4.3-11.0)
[2020-07-04 05:55] LABS: BASOPHILS % (AUTO) 0 % (0-10); EOSINOPHILS # (AUTO) 0.2 10^3/uL (0.0-0.3); EOSINOPHILS % (AUTO) 3 % (0-10); LYMPHOCYTES # (AUTO) 0.6 10^3/uL (1.0-4.0); MONOCYTES # (AUTO) 0.8 10^3/uL (0.0-1.0); NEUTROPHILS # (AUTO) 5.6 10^3/uL (1.8-7.8)
[2020-07-04 06:05] LABS: ALBUMIN 2.8 GM/DL (3.2-4.5); POTASSIUM 4.8 MMOL/L (3.6-5.0)
[2020-07-04 06:06] LABS: CALCIUM 8.8 MG/DL (8.5-10.1)
[2020-07-04 06:09] LABS: BILIRUBIN,TOTAL 0.3 MG/DL (0.1-1.0)
[2020-07-04 06:11] LABS: CREATININE SERUM 1.3 MG/DL (0.60-1.30)
[2020-07-04 08:00] VITALS: BP 164/95
[2020-07-04] MEDS: PANTOPRAZOLE 40 MG (PROTONIX) TAB PO SCH ×2 (09:06→20:41)
[2020-07-04] MEDS: LACTULOSE SYRUP 10GM/15ML (ENULOSE) 30ML UDC PO SCH ×4 (09:06→20:42)
[2020-07-04] MEDS: toPIRamate 25 MG (TOPAMAX) TAB PO SCH ×2 (09:06→20:42)
[2020-07-04] MEDS: FOLIC ACID 1 MG TAB PO SCH (09:06)
[2020-07-04] MEDS: MAGNESIUM OXIDE (MAG-OX)400 MG TAB PO SCH ×2 (09:06→20:41)
[2020-07-04] MEDS: LORATADINE (CLARITIN) 10 MG TAB PO SCH (09:09)
[2020-07-04] MEDS: inSUlin NPH (NovoLIN N) 1 UNIT/0.01 ML (CHARGE PER UNIT) SQ SCH ×2 (09:09→20:41)
--- NOTE | 2020-07-04 09:44 | NUR ---
Palliative Care RN in to see patient. She is so much more coherent today. She is able to talk without slurring and to have an intelligent conversation. She however, did not remember being at [facility] prior to this readmission. She does state that she is embarrassed when she has an accident in the bed due to the Lactulose. I spoke to her very emphatically regarding the need to take her Lactulose even though she is incontinent. We discussed discharge POC options with emphasis on return to [facility] skilled to get stronger with intent to return home. She is not currently interested in hospice at this time. Updated Dr. Wilson on patient's condition and the request of the daughter to be updated.
[2020-07-04] MEDS: LACTATED RINGERS 1,000 ML IV SCH (12:44)
--- NOTE | 2020-07-04 14:17 | NUR ---
Palliative Care RN received permission to order Physical Therapy and Occupational Therapy for the patient. DONE
--- NOTE | 2020-07-04 14:56 | Occupational Therapy Eval ---
OT Evaluation-General/PLF Medical Diagnosis Admission Date Jun 29, 2020 at 15:58 Medical Diagnosis: AMS, UTI Onset Date: Jun 29, 2020 Therapy Diagnosis Therapy Diagnosis: decreased ADL status, weakness Height/Weight Height (Feet): 5 Height (Inches): 4.00 Weight (Pounds): 196 Weight (Ounces): 5.0 Precautions Precautions/Isolations: Fall Prevention, Standard Precautions Referral Physician: Katie Referral Reason: Evaluation/Treatment Medical History Pertinent Medical History: Atrial Fib, CABG, CAD, DM, Dementia, Heart Failure, HTN, Hypothroidism, PA, Renal Insufficiency Additional Medical History coronary stents, COPD, sleep apnea, GERD, liver disease, GI bleed, DDD, arthritis, diverticulosis, polyps, anxiety, psoriasis Current History Pt recently discharged on 06/28/2020 to [facility] for half-way care. Pt readmitted to hospital with AMS and somnolence, pt found to have UTI and baseline ammonia level of 78. Social History Home: [facility] ([facility]) ADL-Prior Level of Function SCALE: Activities may be completed with or without assistive devices. 6-Hrxichwleh-jsfoouw completes the activity by him/herself with no assistance from a helper. 5-Set-up or Clean-up Assistance-helper sets up or cleans up; patient completes activity. [place] assists only prior to or following the activity. 4-Supervision or Touching Assistance-helper provides verbal cues and/or touching/steadying and/or contact guard assistance as patient completes activity. Assistance may be provided throughout the activity or intermittently. 3-Partial/Moderate Assistance-helper does LESS THAN HALF the effort. [place] lifts, holds or supports trunk or limbs, but provides less than half the effort. 2-Substantial/Maximal Assistance-helper does MORE THAN HALF the effort. [place] lifts or holds trunk or limbs and provides more than half the effort. 2-Hxspfswwa-ixkorq does ALL the effort. Patient does none of the effort to complete the activity. Or, the assistance of 2 or more helpers is required for the patient to complete the activity. If activity was not attempted, code reason: 7-Patient Refused. 9-Not Applicable-not attempted and the patient did not perform the activity before the current illness, exacerbation or injury. 10-Not Attempted due to Environmental Limitations-(lack of equipment, weather restraints, etc.). 88-Not Attempted due to Medical Conditions or Safety Concerns. ADL PLOF Comments Pt reports requiring assistance with ADLS at PLOF. She has assistance with feeding at [facility]. Level of assistance unknown as pt indicates she didn't have help with showering, but also unable to do herself. She indicates she performs functional mobility "pretty well" with FWW. Self Care: Needed Some Help Functional Cognition: Needed Some Help DME/Equipment Comments FWW OT Current Status Subjective Pt laying in bed, reports 5/10 pain in neck. Mental Status/Objective Patient Orientation: Person, Confused, Place, Situation Attachments: Munoz Catheter, IV Current Glasses/Contacts: Yes (reading) Hearing Aids: No Dentures/Partials: Yes Hand Dominance: Right Upper Extremity ROM impaired. BUE shoulder flexion to approx 30 degrees. Upper Extremity Coordination decreased, pt unable to make full fist and had difficulty with thumb to finger opposition due to swelling in BUEs. Upper Extremity Sensation pt denies tingling/numbness. ADL-Treatment Eating (QC): 2 (Max A bringing water jug to mouth, pt able to use straw to take a drink. Pt indicates having assistance with feeding at lunch time.) Oral Hygiene (QC): 7 (pt declined.) On/Off Footwear (QC): 1 (based on clinical judgement pt would require total assistance with task.) Other Treatments OT evaluation complete. Noted increased swelling in bilateral hands. OT educated pt on importance of exercise in order to decrease swelling and increase functional ROM. Pt able to complete x10 reps BUEs personal investment adviser squeezes/extension of fingers, pt completed at very slow pace requiring mod-max cues to complete exercise. Pt declined brushing her teeth or OOB activities. OT asked pt if she had any tingling/numbness in arms/hands and pt replied pain. OT asked if pt had pain in her hands/arms and pt indicates she didn't. OT educated pt on OT POC while admitted in order to increase safety and independence with ADLs, she verbalized understanding. Post tx, pt laying in bed, call light in reach and all needs met. Education OT Patient Education: Correct positioning, Exercise program, Modified ADL techniques, Progress toward Goal/Update tx plan, Purpose of tx/functional activities, Rehab process Teaching Recipient: Patient Teaching Methods: Demonstration, Discussion Response to Teaching: Reinforcement Needed OT Carbon Sequestration Plant Operator Goals Mcc Goals Time Frame: Jul 13, 2020 Eating (QC): 5 Oral Hygiene (QC): 5 Toileting Hygiene (QC): 3 Shower/Bathe Self (QC): 3 Upper Body Dressing (QC): 3 Lower Body Dressing (QC): 3 On/Off Footwear (QC): 2 Additional Goals: 1-Demonstrate ADL Tasks, 2-Verbalize Understanding, 3- ImproveStrength/Tamy 1=Demonstrate adherence to instructed precautions during ADL tasks. 2=Patient will verbalize/demonstrate understanding of assistive devices/modifications for ADL. 3=Patient will improve strength/tolerance for activity to enable patient to perform ADL's. OT Education/Plan Problem List/Assessment Assessment: Decreased Activ Tolerance, Decreased UE Strength, Impaired I ADL's, Impaired Self-Care Skills, Restricted Funct UE ROM Discharge Recommendations Plan/Recommendations: Continue POC Therapy Discharge Recommendati: Other, See Comments (SNF) Treatment Plan/Plan of Care Patient would benefit from OT for education, treatment and training to promote independence in ADL's, mobility, safety and/or upper extremity function for ADL's. Plan of Care: ADL Retraining, Functional Mobility, UE Funct Exercise/Act Treatment Duration: Jul 13, 2020 Frequency: 5 times per week Estimated Hrs Per Day: .25 hour per day Agreement: Yes Rehab Potential: Guarded Time/GCodes Start Time: 14:38 Stop Time: 14:47 Total Time Billed (hr/min): 9 Billed Treatment Time 1, SHERITA GONZALES OT Jul 04, 2020 14:56
--- NOTE | 2020-07-04 15:19 | Physical Therapy Evaluation ---
PT Evaluation-General Medical Diagnosis Admission Date Jun 29, 2020 at 15:58 Medical Diagnosis: AMS, UTI Onset Date: Jun 29, 2020 Therapy Diagnosis Therapy Diagnosis: abn gait Height/Weight Height (Feet): 5 Height (Inches): 4.00 Weight (Pounds): 196 Weight (Ounces): 5.0 Precautions Precautions/Isolations: Fall Prevention, Standard Precautions Referral Physician: Katie Reason for Referral: Evaluation/Treatment Medical History Pertinent Medical History: Atrial Fib, CABG, CAD, DM, Dementia, Heart Failure, HTN, Hypothroidism, PR, Renal Insufficiency Current History HPI: This is a 64yoWF who was just DC from this hospital and sent to [place] for halfway care who presented to the ER with AMS and somnolence. Patient was found to have UTI and her baseline ammonia level of 78. Reviewed History: Yes Social History Home: Detention Prior Prior Level of Function SCALE: Activities may be completed with or without assistive devices. 6-Xmjnblvrhn-wpqjrgt completes the activity by him/herself with no assistance from a helper. 5-Set-up or Clean-up Assistance-helper sets up or cleans up; patient completes activity. [place] assists only prior to or following the activity. 4-Supervision or Touching Assistance-helper provides verbal cues and/or touching/steadying and/or contact guard assistance as patient completes act ivity. Assistance may be provided throughout the activity or intermittently. 3-Partial/Moderate Assistance-helper does LESS THAN HALF the effort. [place] lifts, holds or supports trunk or limbs, but provides less than half the effort. 2-Substantial/Maximal Assistance-helper does MORE THAN HALF the effort. [place] lifts or holds trunk or limbs and provides more than half the effort. 9-Aidimlztt-fxgdzo does ALL the effort. Patient does none of the effort to complete the activity. Or, the assistance of 2 or more helpers is required for the patient to complete the activity. If activity was not attempted, code reason: 7-Patient Refused. 9-Not Applicable-not attempted and the patient did not perform the activity before the current illness, exacerbation or injury. 10-Not Attempted due to Environmental Limitations-(lack of equipment, weather restraints, etc.). 88-Not Attempted due to Medical Conditions or Safety Concerns. Bed Mobility: 6 Transfers (B,C,W/C): 6 Gait: 6 Indoor Mobility (Ambulation): Independent Stairs: Needed Some Help Prior Devices Use: Walker Prior to recent LTC admit, pt was home with at a mod indep level. PT Evaluation-Current Subjective Answers questions. Requests to toilet. Objective Patient Orientation: Person, Confused, Place Attachments: Munoz Catheter, IV flat affect; limited interaction. ROM/Strength ROM Lower Extremities WFL Strength Lower Extremities grossly 3/5 Integumentary/Posture Integumentary refer to nursing note. Bowel Incontinence: No Bladder Incontinence: Munoz Cath Posture rounded shoulders. Neuromuscular (Tone, Coordination, Reflexes) delayed responses. Sensory Vision: Functional Hearing: Functional Hand Dominance: Right Transfers Roll Left to Right (QC): 2 Sit to Lying (QC): 2 Lying to Sitting/Side of Bed(Q: 2 Sit to Stand (QC): 1 (unable to come to a full stand; sit to stand x 3 reps lacks full hip and knee extension) Unable to safely perform SPT. Limited initiation with any activity or movement; verbal and tactile cues to initiate and complete. In sitting, lists left with no response to recover. Gait Does the Patient Walk?: No and Walking Goal IS indicated Mode of Locomotion: Walk Anticipated Mode of Locomotion: Walk Comments/Gait Description Unable to attempt ambulation this date. Balance Sitting Static: Poor Sitting Dynamic: Poor Treatment Transferred to sit EOB; sat 5 minutes EOB with min assist to maintain upright posture. Sit to stand x 3 wtih dep assist and unable to come to a full stand. Returned to bed and dep for positioning and scooting in bed. Placed bedpan at pt request and notified nursing. Assessment/Needs Pt admitted with AMS and found to have a UTI. She presnts with flat affect with limited initiation of tasks and needs max to dependent assist for all mobility. She will benefit from skilled PT to address strength and mobility to optimize her interaction in her environment and self care. Rehab Potential: Guarded PT Mcc Goals Mcc Goals PT Cannery Worker Goals Time Frame: Jul 11, 2020 Roll Left & Right (QC): 4 Sit to Lying (QC): 4 Lying-Sitting on Side/Bed(QC): 4 Sit to Stand (QC): 4 Chair/Zwm-jb-Exwdn Xfer(QC): 4 Walk 50ft with 2 Turns (QC): 4 PT Plan Problem List Problem List: Activity Tolerance, Functional Strength, Safety, Balance, Gait, Transfer, Bed Mobility Treatment/Plan Treatment Plan: Continue Plan of Care Treatment Plan: Bed Mobility, Education, Functional Activity Tamy, Functional Strength, Gait, Safety, Therapeutic Exercise, Transfers Treatment Duration: Jul 11, 2020 Frequency: 6 times per week Estimated Hrs Per Day: .25 hour per day Patient and/or Family Agrees t: Yes Safety Risks/Education Patient Education: Transfer Techniques, Safety Issues Teaching Recipient: Patient Teaching Methods: Demonstration, Discussion Response to Teaching: Reinforcement Needed Discharge Recommendations Therapy Discharge Recommendati: Post Acute PT Time/GCodes Time In: 1450 Time Out: 1515 Total Billed Treatment Time: 25 Total Billed Treatment visit EVM 15 FA 10 JENNIFER SMITH PT Jul 04, 2020 15:19
[2020-07-04 16:00] VITALS: BP 144/65
[2020-07-04 20:00] VITALS: BP 135/62
--- NOTE | 2020-07-04 20:07 | Progress Note ---
Subjective Subjective/Events-last exam Patient improved this AM. She is awake and answering questions appropriately. States that she is having some neck pain. Having frequent BMs. Review of Systems Pulmonary: No Dyspnea, No Cough Cardiovascular: No: Chest Pain, Palpitations Gastrointestinal: Abdominal Pain, Diarrhea; No: Nausea, Vomiting Musculoskeletal: neck pain, back pain Neurological: Weakness, Incoordination Objective Exam Last Set of Vital Signs Vital Signs Date Time Temp Pulse Resp B/P (MAP) Pulse Ox O2 Delivery O2 Flow Rate FiO2 07/04/20 16:00 36.3 82 18 144/65 (91) 94 Nasal Cannula 3.00 Capillary Refill : Less Than 3 SecondsLess Than 3 Seconds I&O Intake and Output 07/04/20 00:00 Intake Total 2150 ml Output Total 1200 ml Balance 950 ml Intake Oral 950 ml IV Total 1200 ml Output Urine Total 1200 ml # Bowel Movements 1 General: Alert, No Acute Distress Lungs: Clear to Auscultation, Normal Air Movement Heart: Regular Rate, Other (systolic murmur) Abdomen: Normal Bowel Sounds, Soft, No Tenderness Extremities: Other (2+ pitting edema bilaterally) Skin: No Rashes Neuro: Normal Speech, Sensation Intact, Cranial Nerves 3-12 NL Results/Procedures Lab Laboratory Tests 07/03/20 20:23: Glucometer 204H 07/04/20 05:00: Sodium Level 140, Potassium Level 4.8, Chloride Level 112H, Carbon Dioxide Level 21, Anion Gap 7, Blood Urea Nitrogen 20H, Creatinine 1.30, Estimat Glomerular Filtration Rate 41, BUN/Creatinine Ratio 15, Glucose Level 108H, Calcium Level 8.8, Corrected Calcium 9.8, Total Bilirubin 0.3, Aspartate Amino Transf (AST/SGOT) 32, Alanine Aminotransferase (ALT/SGPT) 15, Alkaline Phosphatase 61, Total Protein 6.0L, Albumin 2.8L 07/04/20 05:05: Glucometer 98 07/04/20 05:38: White Blood Count 4.8, Red Blood Count 2.27L, Hemoglobin 7.1L, Hematocrit 22L, Mean Corpuscular Volume 97, Mean Corpuscular Hemoglobin 31, Mean Corpuscular Hemoglobin Concent 32, Red Cell Distribution Width 13.1, Platelet Count 116L, Mean Platelet Volume 10.7, Immature Granulocyte % (Auto) 0, Neutrophils (%) (Auto) 74, Lymphocytes (%) (Auto) 11L, Monocytes (%) (Auto) 11, Eosinophils (%) (Auto) 3, Basophils (%) (Auto) 0, Neutrophils # (Auto) 5.6, Lymphocytes # (Auto) 0.6L, Monocytes # (Auto) 0.8, Eosinophils # (Auto) 0.2, Basophils # (Auto) 0.0, Immature Granulocyte # (Auto) 0.0 07/04/20 11:23: Glucometer 136H 07/04/20 15:50: Glucometer 163H Microbiology 06/29/20 Urine Culture - Final, Complete Escherichia coli 06/29/20 Blood Culture - Preliminary, Resulted No growth Assessment/Plan Assessment/Plan (1) Hepatic encephalopathy Status: Acute Assessment & Plan: - Not consistently taking Lactulose and was taken off Xifaxan prior to going to [place], Ammonia elevated, Continue Lactulose 07/03: Continue lactulose, mental status slightly improving 07/04: Status improving, discussed the importance of taking lactulose with patien t and daughter over the phone (2) UTI (urinary tract infection) Status: Acute Assessment & Plan: - [place] sensitive Ecoli, Continue Unasyn 07/04: Continue IV antibiotics, will transition to PO at discharge for total treatment days of 7 days Qualifiers: Qualified Codes: N30.01 - Acute cystitis with hematuria (3) Mcuqx-xp-bditnir kidney injury Status: Resolved Assessment & Plan: - Improving with gentle hydration 07/03: At her baseline (4) Insulin dependent diabetes mellitus Status: Chronic (5) 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 Patient to d/c back to [facility] to continue with Skilled (11) Contraindication to anticoagulation therapy Status: Chronic JAMES TORRES MD Jul 04, 2020 20:07
[2020-07-05] VITALS: BP 131/58
[2020-07-05] MEDS: AMPICILLIN/SULBACTAM INJECTION 1.5 GM in NS (IVPB) 100 ML IV SCH ×3 (02:16→13:26)
[2020-07-05 04:00] VITALS: BP 150/65
[2020-07-05 05:50] LABS: BASOPHILS % (AUTO) 1 % (0-10); EOSINOPHILS # (AUTO) 0.4 10^3/uL (0.0-0.3); EOSINOPHILS % (AUTO) 10 % (0-10); HEMATOCRIT 23 % (35-52); HEMOGLOBIN 7.4 g/dL (11.5-16.0); LYMPHOCYTES # (AUTO) 0.7 10^3/uL (1.0-4.0); LYMPHOCYTES % (AUTO) 17 % (12-44); MEAN CORPUSCULAR HEMOGLOBIN 31 pg (25-34); MEAN CORPUSCULAR HGB CONC 33 g/dL (32-36); MEAN CORPUSCULAR VOLUME 95 fL (80-99); MEAN PLATELET VOLUME 10.9 fL (9.0-12.2); MONOCYTES # (AUTO) 0.4 10^3/uL (0.0-1.0); MONOCYTES % (AUTO) 11 % (0-12); NEUTROPHILS # (AUTO) 2.5 10^3/uL (1.8-7.8); NEUTROPHILS % (AUTO) 62 % (42-75); PLATELET COUNT 120 10^3/uL (130-400)
[2020-07-05] MEDS: inSUlin ASPART (NovoLOG) 1 UNIT/0.01 ML (CHARGE PER UNIT) SC SCH ×4 (06:04→21:16)
[2020-07-05] MEDS: LEVOTHYROXINE 125 MCG (LEVOTHROID) TABLET PO SCH (06:05)
[2020-07-05 06:32] LABS: ALBUMIN 2.7 GM/DL (3.2-4.5)
[2020-07-05 06:34] LABS: TOTAL PROTEIN 5.7 GM/DL (6.4-8.2)
[2020-07-05 06:36] LABS: BILIRUBIN,TOTAL 0.3 MG/DL (0.1-1.0)
[2020-07-05 06:38] LABS: CREATININE SERUM 1.08 MG/DL (0.60-1.30)
[2020-07-05] MEDS: LACTATED RINGERS 1,000 ML IV SCH (06:40)
[2020-07-05 08:00] VITALS: BP 145/74
--- NOTE | 2020-07-05 08:53 | NUR ---
pt prefers placement at [facility] ([facility]) as it is closer to her family and they are allowing family visits.Faxed pt's medial reports and medication list for [facility] review. Awaiting their decision as to their acceptance
[2020-07-05] MEDS: toPIRamate 25 MG (TOPAMAX) TAB PO SCH ×2 (09:09→20:30)
[2020-07-05] MEDS: PANTOPRAZOLE 40 MG (PROTONIX) TAB PO SCH ×2 (09:09→20:30)
[2020-07-05] MEDS: inSUlin NPH (NovoLIN N) 1 UNIT/0.01 ML (CHARGE PER UNIT) SQ SCH ×2 (09:10→22:03)
[2020-07-05] MEDS: FOLIC ACID 1 MG TAB PO SCH (09:10)
[2020-07-05] MEDS: LORATADINE (CLARITIN) 10 MG TAB PO SCH (09:10)
[2020-07-05] MEDS: MAGNESIUM OXIDE (MAG-OX)400 MG TAB PO SCH ×2 (09:10→20:30)
[2020-07-05] MEDS: LACTULOSE SYRUP 10GM/15ML (ENULOSE) 30ML UDC PO SCH ×3 (09:34→20:31)
--- NOTE | 2020-07-05 10:34 | NUR ---
Patient has been accepted to [facility] for Skilled placement. Unsure if shewill be accepted for placement today or tomorrow. She will need a Rapid CV-19 swab prior to discharge.
--- NOTE | 2020-07-05 10:54 | Physical Therapy Daily Note ---
PT Daily Note-Current Subjective Patient is more alert and does know this PT. Agrees to PT. Mental Status Patient Orientation: Person, Time, Situation Attachments: Munoz Catheter, IV Transfers SCALE: Activities may be completed with or without assistive devices. 1-Ivpcwdzdgv-ecjyngl completes the activity by him/herself with no assistance from a helper. 5-Set-up or Clean-up Assistance-helper sets up or cleans up; patient completes activity. [place] assists only prior to or following the activity. 4-Supervision or Touching Assistance-helper provides verbal cues and/or touching/steadying and/or contact guard assistance as patient completes activity. Assistance may be provided throughout the activity or intermittently. 3-Partial/Moderate Assistance-helper does LESS THAN HALF the effort. [place] lifts, holds or supports trunk or limbs, but provides less than half the effort. 2-Substantial/Maximal Assistance-helper does MORE THAN HALF the effort. [place] lifts or holds trunk or limbs and provides more than half the effort. 5-Sjpjpidxg-xkuxfl does ALL the effort. Patient does none of the effort to complete the activity. Or, the assistance of 2 or more helpers is required for the patient to complete the activity. If activity was not attempted, code reason: 7-Patient Refused. 9-Not Applicable-not attempted and the patient did not perform the activity before the current illness, exacerbation or injury. 10-Not Attempted due to Environmental Limitations-(lack of equipment, weather restraints, etc.). 88-Not Attempted due to Medical Conditions or Safety Concerns. Lying to Sitting/Side of Bed(Q: 2 Sit to Stand (QC): 2 Chair/Tqm-ba-Hstqf Xfer(QC): 2 (SPT bed to recliner) Exercises Seated Therapy Exercises: Ankle pumps, Long arc quads, Hip flexion Seated Reps: 14 Standing: Sit to Stand (3 sets max assist x 2 to FWW) Assessment Patient tolerates minimal activity and agrees to PT. Patient is mildly confused, however, is progressing slowly. Patient requires much encouragement to actively perform exercises. Patient holds entire body very still. PT Halfway Goals Senior Pharmacy Technician Goals PT Senior Pharmacy Technician Goals Time Frame: Jul 11, 2020 Roll Left & Right (QC): 4 Sit to Lying (QC): 4 Lying-Sitting on Side/Bed(QC): 4 Sit to Stand (QC): 4 Chair/Jby-bj-Xsxlx Xfer(QC): 4 Walk 50ft with 2 Turns (QC): 4 PT Plan Treatment/Plan Treatment Plan: Continue Plan of Care Treatment Plan: Bed Mobility, Education, Functional Activity Tamy, Functional Strength, Gait, Safety, Therapeutic Exercise, Transfers Treatment Duration: Jul 11, 2020 Frequency: 6 times per week Estimated Hrs Per Day: .25 hour per day Patient and/or Family Agrees t: Yes Time/GCodes Time In: 1030 Time Out: 1043 Total Billed Treatment Time: 13 Total Billed Treatment 1 visit EX 13 min YOLETTE HILARIO PT Jul 05, 2020 10:54
[2020-07-05 12:00] VITALS: BP 162/70
--- NOTE | 2020-07-05 12:54 | Occupational Ther Daily Note ---
OT Current Status-Daily Note Subjective Pt. reports that her hands hurt from swelling, and that she has been unable to feed herself. Does not rate pain. Please see note. Mental Status/Objective Patient Orientation: Person ADL-Treatment Therapy Code Descriptions/Definitions Functional [place] Measure: 0=Not Assessed/NA 4=Minimal Assistance 1=Total Assistance 5=Supervision or Setup 2=Maximal Assistance 6=Modified [place] 3=Moderate Assistance 7=Complete IndependenceSCALE: Activities may be completed with or without assistive devices. 0-Euwfsdduiv-lawrtlm completes the activity by him/herself with no assistance from a helper. 5-Set-up or Clean-up Assistance-helper sets up or cleans up; patient completes activity. [place] assists only prior to or following the activity. 4-Supervision or Touching Assistance-helper provides verbal cues and/or touching/steadying and/or contact guard assistance as patient completes activity. Assistance may be provided throughout the activity or intermittently. 3-Partial/Moderate Assistance-helper does LESS THAN HALF the effort. [place] lifts, holds or supports trunk or limbs, but provides less than half the effort. 2-Substantial/Maximal Assistance-helper does MORE THAN HALF the effort. Vale lifts or holds trunk or limbs and provides more than half the effort. 9-Tvrfygzpb-hrgsbe does ALL the effort. Patient does none of the effort to complete the activity. Or, the assistance of 2 or more helpers is required for the patient to complete the activity. If activity was not attempted, code reason: 7-Patient Refused. 9-Not Applicable-not attempted and the patient did not perform the activity before the current illness, exacerbation or injury. 10-Not Attempted due to Environmental Limitations-(lack of equipment, weather restraints, etc.). 88-Not Attempted due to Medical Conditions or Safety Concerns. Eating (QC): 2 (Max assist as reported by pt. Pt. able to hold water pitcher with bilateral hands, and attempts to bring to mouth. OT brings to mouth for her.) Toileting Hygiene (QC): 1 Other Treatment Pt. is on bedpan when OT comes into room. Pt. reports that she is done, and tells OT that she will need two people to assist her off. Pt. is able to roll with mod assist with cues, and requires assistance for radha care and cleanse. After toileting task, OT engages pt. in bilateral hand exercises, as tolerated, with hand squeezes and finger flexion movements. Pt. states that her fingers and hands are very swollen, but upon appearance, they area not terribly edematous. OT applies lotion to hands and forearms, and provides gentle retrograde massage. Pt. indicates that it feels good. Pt. is encouraged to keep moving her hands and attempting to do things for herself such as feeding. Bilateral UE are propped up on pillows. All needs met. Education OT Patient Education: Correct positioning, Exercise program, Modified ADL te chniques, Progress toward Goal/Update tx plan, Purpose of tx/functional activities, Reviewed precautions, Rehab process, Transfer techniques Teaching Recipient: Patient Teaching Methods: Demonstration, Discussion Response to Teaching: Verbalize Understanding, Return Demonstration, Reinforcement Needed OT [facility] Goals Developer Automatic Goals Time Frame: Jul 13, 2020 Eating (QC): 5 Oral Hygiene (QC): 5 Toileting Hygiene (QC): 3 Shower/Bathe Self (QC): 3 Upper Body Dressing (QC): 3 Lower Body Dressing (QC): 3 On/Off Footwear (QC): 2 Additional Goals: 1-Demonstrate ADL Tasks, 2-Verbalize Understanding, 3-Impro veStrength/Tamy 1=Demonstrate adherence to instructed precautions during ADL tasks. 2=Patient will verbalize/demonstrate understanding of assistive devices/modifications for ADL. 3=Patient will improve strength/tolerance for activity to enable patient to perform ADL's. OT Education/Plan Problem List/Assessment Assessment: Decreased Activ Tolerance, Decreased UE Strength, Dependent Transfers, Edema, Impaired Bed Mobility, Impaired Coordination, Impaired Funct Balance, Impaired I ADL's, Impaired Self-Care Skills, Restricted Funct UE ROM Discharge Recommendations Plan/Recommendations: Continue POC Therapy Discharge Recommendati: 24 Hour Supervision Treatment Plan/Plan of Care Treatment,Training & Education: Yes Patient would benefit from OT for education, treatment and training to promote independence in ADL's, mobility, safety and/or upper extremity function for ADL's. Plan of Care: ADL Retraining, Functional Mobility, UE Funct Exercise/Act Treatment Duration: Jul 13, 2020 Frequency: 5 times per week Estimated Hrs Per Day: .25 hour per day Agreement: Yes Rehab Potential: Fair Time/GCodes Start Time: 10:10 Stop Time: 10:25 Total Time Billed (hr/min): 15 Billed Treatment Time 1, Ex NAHOMISANDRA OT Jul 05, 2020 12:54
--- NOTE | 2020-07-05 14:05 | NUR ---
"RD ASSESSMENT PMHx: COPD; afib; CAD; hypercholesterolemia; HTN; dementia; renal failure; GERD; cirrhosis; DM; hypothyroidism; PT INTERACTION: Pt was awake and pleasant during nutrition follow-up. Pt states she has been eating okay since last assessment. Note avg pO intake 30% x3d, per chart review. Pt states some issues with constipation since last assessment. Note last BM was 07/04, and pt not currently on bowel regimen per chart review. Est. kcal needs: 4288-7738 kcal | 15-18 kcal/kg Est. Pro needs: 80-100 g Pro | 0.8-1.0 g Pro/kg PES STATEMENT: Inadequate oral intake (NI-2.1) related to loss of appetite and constipation, as evidenced by pt interview, and avg PO intake 30% x3d. INTERVENTION: Continue with current diet order of DYS3 Advanced/[employer] diet. Add Glucerna (vary) to meals TID, for increased kcal intake. Provides 220 kcal and 10 g Pro per serving. Encouraged pt to eat when able. Will continue to follow and reassess as pt needs, intake, and status change. Urbano HIGGINS MS RD LD [phone] cell"
[2020-07-05] MEDS ORDERED: NF-RIFA200 PO (14:10)
[2020-07-05] MEDS ORDERED: AMOX500C2 PO (14:10)
[2020-07-05] MEDS ORDERED: FUROSEMIDE 40 MG/4 ML INJ (LASIX) IVP NR (14:15)
--- NOTE | 2020-07-05 14:16 | Discharge Summary ---
Discharge Summary Reconcile Patient Problems Problems Reviewed?: Yes Hospital Course Hospital Course Date of Admission: Jun 29, 2020 at 15:58 Admission Diagnosis : Family Physician/Provider: James Wilson MD Date of Discharge: 07/05/20 Discharge Diagnosis: Hepatic Encephalopathy UTI Ecoli Acute on Chronic CKD IDDM Atrial Fibrillation Transfusion Dependent Anemia GAVE Hypothyroidism Hospital Course: 65 yo F that presented with altered mental status likely multifactoral. Patient was started on her home dose of lactulose after she was found to have an elevated ammonia. Patient was recently stopped on her Xifaxin because she was admitted to the [place]. She was also found to have UTI that was found to be bazan sensitive. Patient will be discharged to SNF. Labs and Pending Lab Test: Laboratory Tests 07/04/20 15:50: Glucometer 163H 07/04/20 20:31: Glucometer 160H 07/05/20 05:35: White Blood Count 4.0L, Red Blood Count 2.39L, Hemoglobin 7.4L, Hematocrit 23L, Mean Corpuscular Volume 95, Mean Corpuscular Hemoglobin 31, Mean Corpuscular Hemoglobin Concent 33, Red Cell Distribution Width 13.0, Platelet Count 120L, Mean Platelet Volume 10.9, Immature Granulocyte % (Auto) 0, Neutrophils (%) (Auto) 62, Lymphocytes (%) (Auto) 17, Monocytes (%) (Auto) 11, Eosinophils (%) (Auto) 10, Basophils (%) (Auto) 1, Neutrophils # (Auto) 2.5, Lymphocytes # (Auto) 0.7L, Monocytes # (Auto) 0.4, Eosinophils # (Auto) 0.4H, Basophils # (Auto) 0.0, Immature Granulocyte # (Auto) 0.0, Sodium Level 139, Potassium Level 4.0, Chloride Level 111H, Carbon Dioxide Level 21, Anion Gap 7, Blood Urea Nitrogen 18, Creatinine 1.08, Estimat Glomerular Filtration Rate 51, BUN/Creatinine Ratio 17, Glucose Level 99, Calcium Level 9.0, Corrected Calcium 10.0, Total Bilirubin 0.3, Aspartate Amino Transf (AST/SGOT) 24, Alanine Aminotransferase (ALT/SGPT) 14, Alkaline Phosphatase 58, Total Protein 5.7L, Albumin 2.7L 07/05/20 06:04: Glucometer 88 07/05/20 11:45: Glucometer 129H 07/05/20 13:50: Coronavirus 2019 ([facility]) [Pending] Microbiology 06/29/20 Urine Culture - Final, Complete Escherichia coli 06/29/20 Blood Culture - Final, Complete No growth Home Meds Active Lactulose 20 Gm/30 Ml Solution 20 Gm PO BID Reported Vitamin D2 (Ergocalciferol (Vitamin D2)) 1,250 Mcg Capsule 100,000 Units PO WEEK Omeprazole 40 Mg Capsule.dr 40 Mg PO BID Macrobid 100 mg Capsule (Nitrofurantoin Monohyd/M-Cryst) 100 Mg Capsule 1 Tab PO DAILY Levothyroxine (Levothyroxine Sodium) 125 Mcg Capsule 125 Mcg PO DAILY Folic Acid 1 Mg Tablet 1 Mg PO DAILY Novolin N (Insulin NPH Human Isophane) 100 Unit/1 Ml Vial 15 Unit SQ BID Ondansetron HCl 4 Mg Tablet 4 Mg PO DAILY Topiramate 50 Mg Tablet 50 Mg PO BID Bumetanide 1 Mg Tablet 1 Mg PO DAILY PRN Magox 400 (Magnesium Oxide) 400 Mg Tablet 400 Mg PO BID Zyrtec (Cetirizine HCl) 10 Mg Tablet 10 Mg PO DAILY Skilled NF Admit to: [facility] Certification (SNF) I certify that SNF services are required to be given on an inpatient basis because of the above named patient's need for fci care on a continuing basis for the conditions(s) for which he/she was receiving inpatient hospital services prior to his/her transfer to the SNF. Fdc Facility Order: Nursing Services, Rehabilitation Therapy Aide-Evaluate & Treat, Physical Therapy-Evaluate & Treat, Speech Language-Evaluate & Treat Oxygen Delivery Method: Room Air Discharge Diet: ADA Diet, Soft Diet Daily Activity as Tolerated: Yes Resuscitation Status: Full Code James Wilson Jul 05, 2020 14:11 Discharge Physical Exam General: Alert, Oriented X3, No Acute Distress Lungs: Clear to Auscultation, Normal Air Movement Heart: Regular Rate, Other (systolic murmur) Abdomen: Normal Bowel Sounds, Soft, No Tenderness Extremities: Other (2 pitting edema bilaterally) Neuro: Other (slow speech ) JAMES WILSON MD Jul 05, 2020 14:16
--- NOTE | 2020-07-05 16:04 | NUR ---
Faxed discharge summary, physician orders, recent PT and OT notes to [facility] who is unable to obtain pt's medication till in the morning so unable to accept pt till tomorrow morning. Also faxed negative Co-Vid test as well as CARE assessment. Pt aware and will contact family about discharge tomorrow morning.
[2020-07-05 16:34] VITALS: BP 129/68
[2020-07-05 20:00] VITALS: BP 135/71
--- NOTE | 2020-07-05 20:30 | NUR ---
PATIENT COMPLAINS IV IS PAINFUL AND RIGHT ARM IS SWOLLEN. REQUESTING TO BE CHANGED TO PO ANTIBIOTIC SINCE BEING DISCHARGED IN AM. DR. TORRES NOTIFIED AND SWITCHED TO CEFDINIR AND IV DC'D.
[2020-07-05] MEDS: CEFDINIR 300 MG (OMNICEF) CAP PO SCH (22:03)
[2020-07-06] VITALS: BP 148/72
[2020-07-06 04:00] VITALS: BP 135/74
[2020-07-06] MEDS: inSUlin ASPART (NovoLOG) 1 UNIT/0.01 ML (CHARGE PER UNIT) SC SCH (05:52)
[2020-07-06] MEDS: LEVOTHYROXINE 125 MCG (LEVOTHROID) TABLET PO SCH (05:56)
[2020-07-06 08:00] VITALS: BP 101/64
[2020-07-06] MEDS: PANTOPRAZOLE 40 MG (PROTONIX) TAB PO SCH (08:41)
[2020-07-06] MEDS: toPIRamate 25 MG (TOPAMAX) TAB PO SCH (08:41)
[2020-07-06] MEDS: inSUlin NPH (NovoLIN N) 1 UNIT/0.01 ML (CHARGE PER UNIT) SQ SCH (08:41)
[2020-07-06] MEDS: CEFDINIR 300 MG (OMNICEF) CAP PO SCH (08:41)
[2020-07-06] MEDS: FOLIC ACID 1 MG TAB PO SCH (08:41)
[2020-07-06] MEDS: LORATADINE (CLARITIN) 10 MG TAB PO SCH (08:41)
[2020-07-06] MEDS: MAGNESIUM OXIDE (MAG-OX)400 MG TAB PO SCH (08:42)
--- NOTE | 2020-07-06 09:48 | NUR ---
Arrangements completed for pt discharge to [facility] skilled placement. Pt pleased with continued care plan. Advised pt's daughter of plan to transfer at 10:00 am as unable to reach her Bill. All medical reports have been faxed and will be given to transport staff also.
[2020-07-06 10:36] VITALS: BP 101/64
--- NOTE | 2020-07-06 11:05 | NUR ---
Important Medicare Message second copy presented reviewed, signed and charted.Pt voiced no intention to appeal and denied any needs.
[2020-07-09] MEDS ORDERED: AMOX-355 PO (10:44)
== END 2020-07-06 10:15 | DRG 442 ==
LOC: EDUNIT# 13:37 → ER 13:40 → 4TH 15:58
PROVIDERS: ADMIT Internal Medicine; ATTEND Internal Medicine
DX: K72.90 Hepatic failure, unspecified without coma (principal); N39.0 Urinary tract infection, site not specified; N17.9 Acute kidney failure, unspecified; I13.0 Hypertensive heart and chronic kidney disease with heart failure and stage 1 through stage 4 chronic kidney disease, or unspecified chronic kidney disease; N18.9 Chronic kidney disease, unspecified; Z20.822 Contact with and (suspected) exposure to COVID-19; E11.22 Type 2 diabetes mellitus with diabetic chronic kidney disease; Z79.4 Long term (current) use of insulin; K31.819 Angiodysplasia of stomach and duodenum without bleeding; I48.91 Unspecified atrial fibrillation; I25.10 Atherosclerotic heart disease of native coronary artery without angina pectoris; E03.9 Hypothyroidism, unspecified; Z51.5 Encounter for palliative care; D64.89 Other specified anemias; B96.20 Unspecified Escherichia coli [E. coli] as the cause of diseases classified elsewhere; E78.00 Pure hypercholesterolemia, unspecified; I50.9 Heart failure, unspecified; J44.9 Chronic obstructive pulmonary disease, unspecified; K74.60 Unspecified cirrhosis of liver; K21.9 Gastro-esophageal reflux disease without esophagitis; E66.9 Obesity, unspecified; M19.90 Unspecified osteoarthritis, unspecified site; G89.29 Other chronic pain; M54.9 Dorsalgia, unspecified; F41.9 Anxiety disorder, unspecified; L40.9 Psoriasis, unspecified; Z88.2 Allergy status to sulfonamides; Z88.5 Allergy status to narcotic agent; Z87.891 Personal history of nicotine dependence; Z95.1 Presence of aortocoronary bypass graft; Z95.5 Presence of coronary angioplasty implant and graft; I25.2 Old myocardial infarction; Z68.35 Body mass index [BMI] 35.0-35.9, adult
CPT/HCPCS: 36415; 70450; 71045; 80048; 80053; 81000; 82140; 82805; 82962; 83605; 84145; 84443; 85007; 85025; 85027; 86850; 86900; 86901; 87040; 87088; 87186; 87635

== ENCOUNTER 2020-07-07 08:52 | Inpatient (IN) | payer MEDICARE ==
[2020-07-07] VITALS (9 sets, daily range): BP systolic 128–171; BP diastolic 60–73
[~2020-07-07] VITALS: Ht 162 cm; Wt 107.8 kg
[2020-07-07] MEDS ORDERED: NITROGLYCERIN 0.4 MG SL TABS BTL 25'S SL ONE (08:58)
[2020-07-07] MEDS ORDERED: FAMOTIDINE 20MG/2ML IV (PEPCID) ONE (08:59)
[2020-07-07] MEDS ORDERED: FAMOTIDINE 20MG/2ML IV (PEPCID) IVP ONE (09:15)
[2020-07-07] MEDS ORDERED: NITROGLYCERIN 0.4 MG SL TABS BTL 25'S SL PRN ×2 (09:15→13:00)
[2020-07-07 09:21] LABS: BASOPHILS % (AUTO) 1 % (0-10); EOSINOPHILS # (AUTO) 0.4 10^3/uL (0.0-0.3); EOSINOPHILS % (AUTO) 9 % (0-10); HEMATOCRIT 23 % (35-52); HEMOGLOBIN 7.6 g/dL (11.5-16.0); LYMPHOCYTES # (AUTO) 0.8 10^3/uL (1.0-4.0); LYMPHOCYTES % (AUTO) 19 % (12-44); MEAN CORPUSCULAR HEMOGLOBIN 31 pg (25-34); MEAN CORPUSCULAR HGB CONC 33 g/dL (32-36); MEAN CORPUSCULAR VOLUME 94 fL (80-99); MEAN PLATELET VOLUME 10.5 fL (9.0-12.2); MONOCYTES # (AUTO) 0.4 10^3/uL (0.0-1.0); MONOCYTES % (AUTO) 10 % (0-12); NEUTROPHILS # (AUTO) 2.6 10^3/uL (1.8-7.8); NEUTROPHILS % (AUTO) 61 % (42-75); PLATELET COUNT 174 10^3/uL (130-400); WHITE BLOOD COUNT 4.3 10^3/uL (4.3-11.0)
--- NOTE | 2020-07-07 09:23 | ED Chest Pain ---
General Stated Complaint: CP Source: patient, EMS, prison records, old records Exam Limitations: no limitations History of Present Illness Date Seen by Provider: Jul 07, 2020 Time Seen by Provider: 08:51 Initial Comments Patient arrives by EMS from prison at [place] with chief complaint of chest pain starting 730, approximately 1-1/2 hours prior to arrival without exertion. Not worse by sitting up or worse laying flat. She has not had anything to eat today. She is on an antacid and has a history of GAVE and hepatitis. She is on Xifaxan and lactulose. She recently discharged from the hospital yesterday for altered mental status related to this. She has a history of stents as well as CABG. Her chest pain is under her left breast just lateral to the midline/sternum and reproducible to direct palpation at the level of her costal margin. She has not taken anything for it yet. She did get her morning medications however. She rates her pain as a 5 out of 10 nonradiating. She is not having shortness of breath fever or chills. No diarrhea. She does not rely on supplemental oxygen but had O2 sats of 88 to 89% on room air. She had one attempted IV unsuccessfully so no nitroglycerin was given on route. 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 She says she has been told several times since she has been in the prison she has paroxysmal atrial fibrillation as well as EMS claim they saw this however no strip was provided. She does not take blood thinners nor have any medications for rate control. She is being treated outpatient for UTI with amoxicillin. The patient states she has not had her insulin yet but EMS remarks her blood sugar was 140. Allergies and Home Medications Allergies Coded Allergies: Usqrbug-Kuq-Bmt Reductase Inhibitor (Verified Allergy, Intermediate, GI UPSET, N/V, 06/29/20) cefadroxil (Verified Allergy, Mild, 06/29/20) Sulfa (Sulfonamide Antibiotics) (Verified Allergy, Unknown, 06/29/20) oxycodone (Verified Allergy, Unknown, 06/29/20) "makes skin crawl" Home Medications Amoxicillin 500 Mg Capsule, 500 MG PO BID Prescribed by: JAMES TORRES on 07/05/20 1410 Bumetanide 1 Mg Tablet, 1 MG PO DAILY PRN for FLUID RETENTION, (Reported) Cetirizine HCl 10 Mg Tablet, 10 MG PO DAILY, (Reported) Ergocalciferol (Vitamin D2) 1,250 Mcg Capsule, 100,000 UNITS PO WEEK, (Reported) Folic Acid 1 Mg Tablet, 1 MG PO DAILY, (Reported) Insulin NPH Human Isophane 100 Unit/1 Ml Vial, 15 UNIT SQ BID, (Reported) Lactulose 20 Gm/30 Ml Solution, 20 GM PO BID Prescribed by: TOMASA CARMONA on 06/18/20 1103 Levothyroxine Sodium 125 Mcg Capsule, 125 MCG PO DAILY, (Reported) Magnesium Oxide 400 Mg Tablet, 400 MG PO BID, (Reported) Nitrofurantoin Monohyd/M-Cryst 100 Mg Capsule, 1 TAB PO DAILY, (Reported) Omeprazole 40 Mg Capsule.dr, 40 MG PO BID, (Reported) Ondansetron HCl 4 Mg Tablet, 4 MG PO DAILY, (Reported) Rifaximin 200 Mg Tablet, 200 MG PO BID Prescribed by: JAMES TORRES on 07/05/20 1410 Topiramate 50 Mg Tablet, 50 MG PO BID, (Reported) Patient Home Medication List Home Medication List Reviewed: Yes Review of Systems Review of Systems Constitutional: No chills, No diaphoresis EENTM: No Blurred Vision, No Double Vision Respiratory: Denies Cough, Denies Shortness of Air Cardiovascular: See HPI, Chest Pain; Denies Lightheadedness Gastrointestinal: Denies Constipated, Denies Diarrhea, Denies Nausea Genitourinary: Denies Burning, Denies Drainage Musculoskeletal: No back pain, No joint pain Skin: No pruritus, No rash Psychiatric/Neurological: Denies Headache, Denies Numbness Past Bsqtlzb-Ffkmig-Yzvfou Hx Patient Social History Alcohol Use: Denies Use Smoking Status: Former Smoker Type Used: Cigarettes Former Smoker, Quit: May 20, 1980 2nd Hand Smoke Exposure: No Recent Hopitalizations: No Immunizations Up To Date Tetanus Booster (TDap): Unknown PED Vaccines UTD: Yes Date of Pneumonia Vaccine: May 16, 2019 Date of Influenza Vaccine: Apr 18, 2020 Seasonal Allergies Seasonal Allergies: Yes Past Medical History Surgeries: Yes (PORT RIGHT CHEST) Adenoidectomy, Cardiac, CABG, Coronary Stent, Open Heart Surgery, Orthopedic, Tonsillectomy, Tubal Ligation Respiratory: Yes (LEFT PLEURAL EFFUSION-S/P THORACENTESIS; RESP FAILURE) Pneumonia, Sleep Apnea Currently Using CPAP: No Currently Using BIPAP: No Cardiac: Yes (CHF, STENT X1; CABG 02/16/2018 x 4 @ 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 LIVER DZ/ELEV AMMONIA) Gastroesophageal Reflux, Liver Disease/Jaundice, Gastrointestinal Bleed, Diverticulosis, Hemorrhoids, Polyps, Cirrhosis Musculoskeletal: Yes (POOR AMBULATION--USES WALKER SINCE CABG; L ANKLE AND KNEE SURGERIES) Degenerate Disk Disease, Arthritis, Chronic Back Pain, Fractures Endocrine: Yes (OBESITY) Diabetes, Insulin dep, Hypothyroidsim HEENT: No Loss of Vision: Denies Hearing Impairment: Denies Cancer: No Psychosocial: Yes Anxiety Integumentary: Yes Psoriasis Blood Disorders: Yes (CHRONIC ANEMIA-GI LOSS/GAVE SYNDROME; MULT TRANSFUSIONS/MULT ANTIBODIES) Adverse Reaction/Blood Tranf: Yes (Antibody JKA) Family Medical History Arthritis G8 BROTHER Completed stroke 19 MOTHER FH: anemia 19 MOTHER FH: lupus G8 SISTER FH: throat cancer 19 FATHER Hypertension G8 SISTER Myocardial infarction 19 MOTHER Thyroid disease 19 MOTHER G8 SISTER Hypertension, Stroke, Other Conditions/Hx PSH: -LEFT ANKLE SURGERY -LEFT KNEE SURGERY -CARDIAC CATHS--STENT X 1 -4 VESSEL CABG AT [facility] 02/16/18 -THORACENTESIS -TONSILLECTOMY/ADENOIDECTOMY -BTL -PORT RIGHT CHEST -LEXISCAN STRESS TEST 03/08/20--NORMAL. EF 70% Physical Exam Vital Signs Vital Signs - First Documented 07/07/20 09:20 O2 Flow Rate 2.00 Capillary Refill : Height, Weight, BMI Height: 5'4.00" Weight: 196lbs. 5.0oz. 89.958805qt; 35.85 BMI Method:Stated General Appearance: No Apparent Distress, Chronically ill, Obese HEENT: PERRL/EOMI, Pharynx Normal, Moist Mucous Membranes Neck: Full Range of Motion, Normal Inspection Respiratory: No Chest Non Tender (Under the left breast just left of the midline sternum at the costal margin she has reproducible chest pain tenderness); Lungs Clear, Normal Breath Sounds, No Accessory Muscle Use, Respiratory Distress (Mild with O2 sat of 88% on room air, nonlabored breathing) Cardiovascular: Regular Rate, Rhythm, Normal Peripheral Pulses Gastrointestinal: Normal Bowel Sounds, Non Tender, Soft Extremity: Normal Capillary Refill, Normal Inspection, No Pedal Edema Neurologic/Psychiatric: Alert, Oriented x3, No Motor/Sensory Deficits Skin: Normal Color, Warm/Dry Procedures/Interventions Date of ETT Placement: May 30, 2018 Time of ETT Placement: 1330 Progress/Results/Core Measures Results/Orders Lab Results Laboratory Tests Test 07/07/20 09:00 Range/Units White Blood Count 4.3 4.3-11.0 10^3/uL Red Blood Count 2.42 L 3.80-5.11 10^6/uL Hemoglobin 7.6 L 11.5-16.0 g/dL Hematocrit 23 L 35-52 % Mean Corpuscular Volume 94 80-99 fL Mean Corpuscular Hemoglobin 31 25-34 pg Mean Corpuscular Hemoglobin Concent 33 32-36 g/dL Red Cell Distribution Width 13.3 10.0-14.5 % Platelet Count 174 130-400 10^3/uL Mean Platelet Volume 10.5 9.0-12.2 fL Immature Granulocyte % (Auto) 0 % Neutrophils (%) (Auto) 61 42-75 % Lymphocytes (%) (Auto) 19 12-44 % Monocytes (%) (Auto) 10 0-12 % Eosinophils (%) (Auto) 9 0-10 % Basophils (%) (Auto) 1 0-10 % Neutrophils # (Auto) 2.6 1.8-7.8 10^3/uL Lymphocytes # (Auto) 0.8 L 1.0-4.0 10^3/uL Monocytes # (Auto) 0.4 0.0-1.0 10^3/uL Eosinophils # (Auto) 0.4 H 0.0-0.3 10^3/uL Basophils # (Auto) 0.0 0.0-0.1 10^3/uL Immature Granulocyte # (Auto) 0.0 0.0-0.1 10^3/uL Prothrombin Time 14.2 12.2-14.7 SEC INR Comment 1.1 0.8-1.4 Activated Partial Thromboplast Time 29 24-35 SEC D-Dimer 3.59 H 0.00-0.49 UG/ML Sodium Level 142 135-145 MMOL/L Potassium Level 3.4 L 3.6-5.0 MMOL/L Chloride Level 110 H 98-107 MMOL/L Carbon Dioxide Level 23 21-32 MMOL/L Anion Gap 9 5-14 MMOL/L Blood Urea Nitrogen 13 7-18 MG/DL Creatinine 1.20 0.60-1.30 MG/DL Estimat Glomerular Filtration Rate 45 BUN/Creatinine Ratio 11 Glucose Level 117 H 70-105 MG/DL Calcium Level 9.3 8.5-10.1 MG/DL Corrected Calcium 10.1 8.5-10.1 MG/DL Magnesium Level 1.7 1.6-2.4 MG/DL Total Bilirubin 0.3 0.1-1.0 MG/DL Aspartate Amino Transf (AST/SGOT) 18 5-34 U/L Alanine Aminotransferase (ALT/SGPT) 13 0-55 U/L Alkaline Phosphatase 66 40-136 U/L Myoglobin 72.3 10.0-92.0 NG/ML Troponin I < 0.028 <0.028 NG/ML B-Type Natriuretic Peptide 102.1 H <100.0 PG/ML Total Protein 6.0 L 6.4-8.2 GM/DL Albumin 3.0 L 3.2-4.5 GM/DL Lipase 24 8-78 U/L My Orders Orders - HUSSAIN MOULTON Famotidine Injection (Pepcid Injection) (07/07/20 09:15) Cbc With Automated Diff (07/07/20 09:01) Magnesium (07/07/20 09:01) Chest 1 View, Ap/Pa Only (07/07/20 09:01) Ekg Tracing (07/07/20 09:01) Comprehensive Metabolic Panel (07/07/20 09:01) Myoglobin Serum (07/07/20 09:01) Protime With Inr (07/07/20 09:01) Partial Thromboplastin Time (07/07/20 09:01) O2 (07/07/20 09:01) Monitor-Rhythm Ecg Trace Only (07/07/20 09:01) Lipid Panel (07/08/20 06:00) Ed Iv/Invasive Line Start (07/07/20 09:01) Lipase (07/07/20 09:01) BNP (07/07/20 09:01) Fibrin Degradation Products (07/07/20 09:01) Troponin I (07/07/20 09:01) Nitroglycerin 0.4 Mg Btl 25's (Nitrostat (07/07/20 09:15) Nitroglycerin 0.4 Mg Btl 25's (Nitrostat (07/07/20 08:58) Famotidine Injection (Pepcid Injection) (07/07/20 08:59) Lidocaine 2% Viscous 15 Ml (Xylocaine Vi (07/07/20 09:45) Antacid Suspension (Mylanta Suspension (07/07/20 09:45) Ed Iv/Invasive Line Start (07/07/20 09:33) Ns Iv 500 Ml (Sodium Chloride 0.9%) (07/07/20 09:45) Type And Screen (07/07/20 10:03) Ct Angio Chest W (07/07/20 10:12) Iohexol Injection (Omnipaque 350 Mg/Ml 1 (07/07/20 10:30) Received Contrast (Hold Metformin- Contr (07/07/20 10:30) Ns (Ivpb) (Sodium Chloride 0.9% Ivpb Bag (07/07/20 10:30) Blood Culture (07/07/20 11:09) Piperacillin Sodium/Tazobactam (Zosyn Vi (07/07/20 11:15) Hs C Reactive Protein (07/07/20 11:10) Procalcitonin (Pct) (07/07/20 11:10) Medications Given in ED Current Medications Medications Dose Ordered Sig/Roberth Route Start Time Stop Time Status Last Admin Dose Admin Al Hydrox/Mg Hydrox/Simethicone 30 ml ONCE ONCE PO 07/07/20 09:45 07/07/20 09:46 DC 07/07/20 09:54 30 ML Famotidine 20 mg ONCE ONCE IVP 07/07/20 09:15 07/07/20 09:16 DC 07/07/20 09:10 20 MG Iohexol 100 ml ONCE ONCE IV 07/07/20 10:30 07/07/20 10:31 DC 07/07/20 10:37 84 ML Lidocaine HCl 15 ml ONCE ONCE PO 07/07/20 09:45 07/07/20 09:46 DC 07/07/20 09:54 15 ML Nitroglycerin 0.4 mg UD PRN SL 07/07/20 09:15 07/07/20 09:10 0.4 MG Sodium Chloride 100 ml ONCE ONCE IV 07/07/20 10:30 07/07/20 10:31 DC 07/07/20 10:37 80 ML Sodium Chloride 500 ml @ 0 mls/hr Q0M ONCE IV 07/07/20 09:45 07/07/20 09:46 DC 07/07/20 09:53 500 MLS/HR Vital Signs/I&O 07/07/20 07/07/20 07/07/20 07/07/20 08:55 08:55 09:20 10:59 Temp 37.2 Pulse 84 84 Resp 16 16 B/P (MAP) 133/53 (79) 121/49 Pulse Ox 93 99 O2 Delivery Room Air Room Air Nasal Cannula Nasal Cannula O2 Flow Rate 2.00 3.00 Progress Progress Note #1: Time: 09:25 Progress Note We will trial nitroglycerin for her chest pain. If this does not help we will trial a GI cocktail. Pepcid has been ordered in addition to her daily pantoprazole. Suspect because she has hypoxia PE also could be the case. A D- dimer has been ordered. Her main risk factor would be multiple hospitalizations recently related to AMS related to elevated ammonia. EKG shows sinus rhythm. We will keep her on the monitor. We have not seen any strips that demonstrate atrial fibrillation. She likely would not tolerate anticoagulation. Aspirin was not given because of her history of gave she refuses it. Progress Note #2: Time: 11:04 Progress Note We were able to exclude significant pulmonary embolisms however the pneumonitis versus atelectasis is still seen in the left lower lobe. This is also the source where she is having pain. Pneumonias can cause chest pain so we will go ahead and collect blood cultures and treat her with Zosyn and vancomycin for a hospital-acquired pneumonia because of her recent hospitalizations as well as her institutionalization in a prison. Initial ECG Impression Date: Jul 07, 2020 Initial ECG Impression Time: 08:58 Initial ECG Rate: 86 Initial ECG Rhythm: Normal Sinus Initial ECG Intervals: Normal Initial ECG Impression: Normal Initial ECG Comparisson: Unchanged Comment Normal sinus rhythm without clinically relevant ST elevation or depression. Diagnostic Imaging Diagonstic Imaging: Xray Plain Films/CT/US/NM/MRI: chest Comments NAME: YOLETTE PISANO [facility] REC#: [id number] PT STATUS: REG ER : 1955 PHYSICIAN: HUSSAIN MOULTON MD ADMIT DATE: 07/07/20/ER Draft Date of Exam:07/07/20 CHEST 1 VIEW, AP/PA ONLY INDICATION: Chest pain Comparison made with prior examination of 06/29/2020. FINDINGS: There are some patchy bibasilar atelectasis and/or pneumonitis left greater than right. There is cardiomegaly and mild venous congestion. No pneumothorax. Mediastinum is unremarkable. There has been a previous median sternotomy. Tktgbg-[id number]-Pmwj catheter has its tip in upper superior vena cava. IMPRESSION: Patchy bibasilar atelectasis and/or pneumonitis, left greater than right. Cardiomegaly and mild central pulmonary venous congestion. Dictated on workstation # [id number] Dict: 07/07/20 0934 Trans: 07/07/20 0938 CV [id number] Interpreted by: EMILI HOUSTON MD Electronically signed by: Reviewed: Reviewed by Me Diagonstic Imaging: CT Plain Films/CT/US/NM/MRI: chest Comments NAME: YOLETTE PISANO [facility] REC#: [id number] PT STATUS: REG ER : 1955 PHYSICIAN: HUSSAIN MOULTON MD ADMIT DATE: 07/07/20/ER Draft Date of Exam:07/07/20 CT ANGIO CHEST W PROCEDURE: CT angiography of the chest with contrast. TECHNIQUE: Multiple contiguous axial images were obtained through the chest after uneventful bolus administration of intravenous contrast. 3D reconstructed CTA MIP acquisitions were also performed. Auto Exposure Controls were utilized during the CT exam to meet ALARA standards for radiation dose reduction. INDICATION: Chest pain. FINDINGS: There is left basilar atelectasis and/or pneumonitis. There is trace left pleural effusion. Right lung is clear. There is no pneumothorax. The thoracic aorta is normal in caliber without evidence of dissection. There is suboptimal but adequate opacification to exclude central and large pulmonary emboli. Difficult to exclude tiny segmental or subsegmental defects. There is cardiomegaly. There is no pathologically enlarged adenopathy in the chest. The visualized intra-abdominal structures are unremarkable. There has been a previous median sternotomy. There are minimal degenerative changes in the spine. IMPRESSION: Left basilar atelectasis and/or pneumonitis and trace left pleural effusion. Cardiomegaly. Suboptimal but adequate opacification of the central pulmonary arteries to exclude central or proximal emboli, although evaluation of the segmental and subsegmental arterial branches is limited. Recommend clinical correlation. No evidence of aortic aneurysm or dissection. Dictated on workstation # [id number] Dict: 07/07/20 1050 Trans: 07/07/20 1101 CVB [id number] Interpreted by: EMILI HOUSTON MD Electronically signed by: Reviewed: Reviewed by Me Departure Communication (Admissions) Time/Spoke to Admitting Phy: 10:30 Discussed the case with Dr. Jung and he agrees with plan and consult cardiology. Discussed that she had a negative routine COVID-19 swab this morning at the prison. 1110: Gave update to Dr. Jung and he agrees with antibiotic selection. Time/Spoke to Consulting Phy: 10:20 Discussed the case with Dr. Kebede and he agrees to consult on the case. He agrees with transfusing a unit of blood. Impression Primary Impression: Pneumonia Qualified Codes: J18.9 - Pneumonia, unspecified organism Additional Impressions: Unstable angina Normocytic anemia Chronic GI bleeding Hypoxemia Disposition: HOME, SELF-CARE Condition: Stable Admissions Decision to Admit Reason: Admit from ER (General) Decision to Admit/Date: Jul 07, 2020 Time/Decision to Admit Time: 10:00 Departure-Patient Inst. Referrals: JAMES TORRES MD (PCP/Family) Primary Care Physician HUSSAIN MOULTON Jul 07, 2020 09:23
[2020-07-07 09:27] LABS: INR 1.1 (0.8-1.4); POTASSIUM 3.4 MMOL/L (3.6-5.0); PROTHROMBIN TIME PATIENT 14.2 SEC (12.2-14.7)
[2020-07-07 09:28] LABS: CALCIUM 9.3 MG/DL (8.5-10.1)
[2020-07-07 09:31] LABS: BILIRUBIN,TOTAL 0.3 MG/DL (0.1-1.0)
--- NOTE | 2020-07-07 09:31 | NUR ---
SEE LIST FOR CURRENT MEDS FROM [facility]
[2020-07-07 09:33] LABS: CREATININE SERUM 1.2 MG/DL (0.60-1.30)
[2020-07-07 09:36] LABS: MAGNESIUM 1.7 MG/DL (1.6-2.4)
--- NOTE | 2020-07-07 09:38 | Diagnostic Imaging Report ---
INDICATION: Chest pain Comparison made with prior examination of 06/29/2020. FINDINGS: There are some patchy bibasilar atelectasis and/or pneumonitis left greater than right. There is cardiomegaly and mild venous congestion. No pneumothorax. Mediastinum is unremarkable. There has been a previous median sternotomy. Nugrqb-e-Prlw catheter has its tip in upper superior vena cava. IMPRESSION: Patchy bibasilar atelectasis and/or pneumonitis, left greater than right. Cardiomegaly and mild central pulmonary venous congestion. Dictated by: Dictated on workstation # [id number]
[2020-07-07] MEDS ORDERED: NS IV 500 ML 500 ML IV ONE ×2 (09:45→16:15)
[2020-07-07] MEDS ORDERED: ANTACID SUSP 30 ML UDC (MYLANTA) PO ONE (09:45)
[2020-07-07] MEDS ORDERED: LIDOCAINE 2% VISCOUS 15 ML UDC PO ONE (09:45)
--- NOTE | 2020-07-07 10:00 | NUR ---
PT RATES C/P 06/24
[2020-07-07] MEDS ORDERED: HOLD METFORMIN - RECEIVED CONTRAST 20 ML VIAL IV SCH (10:30)
[2020-07-07] MEDS ORDERED: IOHEXOL 350 MG/ML 100 ML (OMNIPAQUE 350) VIAL IV ONE (10:30)
[2020-07-07] MEDS ORDERED: NS 100 ML (IVPB) BAG IV ONE (10:30)
--- NOTE | 2020-07-07 11:02 | Diagnostic Imaging Report ---
PROCEDURE: CT angiography of the chest with contrast. TECHNIQUE: Multiple contiguous axial images were obtained through the chest after uneventful bolus administration of intravenous contrast. 3D reconstructed CTA MIP acquisitions were also performed. Auto Exposure Controls were utilized during the CT exam to meet ALARA standards for radiation dose reduction. INDICATION: Chest pain. FINDINGS: There is left basilar atelectasis and/or pneumonitis. There is trace left pleural effusion. Right lung is clear. There is no pneumothorax. The thoracic aorta is normal in caliber without evidence of dissection. There is suboptimal but adequate opacification to exclude central and large pulmonary emboli. Difficult to exclude tiny segmental or subsegmental defects. There is cardiomegaly. There is no pathologically enlarged adenopathy in the chest. The visualized intra-abdominal structures are unremarkable. There has been a previous median sternotomy. There are minimal degenerative changes in the spine. IMPRESSION: Left basilar atelectasis and/or pneumonitis and trace left pleural effusion. Cardiomegaly. Suboptimal but adequate opacification of the central pulmonary arteries to exclude central or proximal emboli, although evaluation of the segmental and subsegmental arterial branches is limited. Recommend clinical correlation. No evidence of aortic aneurysm or dissection. Dictated by: Dictated on workstation # [id number]
[2020-07-07] MEDS ORDERED: PIPERACILLIN SODIUM/TAZOBACTAM 4.5 GM in NS (IVPB) 100 ML IV ONE (11:15)
[2020-07-07] MEDS ORDERED: PIPERACILLIN/TAZO 4.5 GM VIAL (ZOSYN) IV ONE ×2 (11:22→11:23)
[2020-07-07] MEDS ORDERED: NS (IVPB) 100 ML ONE (11:23)
[2020-07-07] MEDS ORDERED: WATER (STERILE) FOR INJECTION 20 ML ONE (11:23)
--- NOTE | 2020-07-07 11:55 | NUR ---
YOLETTE PISANO admitted to room 416-1, with an admitting diagnosis of PNEUMONIA, on 07/07/20 from ED via BED, accompanied by STAFF. YOLETTE PISANO introduced to surroundings, call light, bed controls, phone, TV, temperature control, lights, meal times, smoking policy, visitor policy, side rail policy, bathrooms and showers. Patient Rights given to patient in the handbook. YOLETTE PISANO verbalizes understanding that [facility] is not responsible for the loss or damage to any personal effects or valuables that are kept in the patients posession during their hospitalization. The following Patient Care Plans were discussed with the PT: Discharge Planning, PAIN, AND PNEUMONIA. YOLETTE PISANO verbalizes understanding of Interdisciplinary Patient Education. Patient and/or family were informed about the Rapid Response Team and its purpose.
[2020-07-07] MEDS ORDERED: morphine INJ 4 MG/ML 1 ML (VIAL/SYRINGE) IV PRN (13:00)
[2020-07-07] MEDS ORDERED: ACETAMINOPHEN 500 MG TAB (TYLENOL) PO PRN (13:00)
[2020-07-07] MEDS ORDERED: NS IV 500 ML 500 ML IV SCH (13:00)
[2020-07-07] MEDS ORDERED: CATHETER FLUSH 10 ML SYR IV PRN (13:00)
[2020-07-07] MEDS ORDERED: ONDANSETRON 4 MG/2 ML (SDV) Z0FRAN IV PRN (13:00)
[2020-07-07] MEDS ORDERED: ONDANSETRON 4 MG/2 ML (SDV) Z0FRAN IVP PRN (13:00)
--- NOTE | 2020-07-07 13:00 | NUR ---
EKG REPORT TO DR. MCKEON.
--- NOTE | 2020-07-07 13:46 | NUR ---
CR 1.2; CR CL < 60; WT 107.8 KG; VANCO 1500 MG IV Q24H X 3 DAYS
--- NOTE | 2020-07-07 14:22 | Consultation-Cardiology ---
HPI-Cardiology Cardiology Consultation: Date of Consultation 07/07/20 Time Seen by a Provider: 13:50 Date of Admission Attending Physician Joao Jung MD Admitting Physician James Torres MD Consulting Physician ARNIE MCKEON MD, MA, FACP, FACC, FSCAI, CCDS HPI: Chief Complaint: Reason for consultation: Chest discomfort HPI 65 yo woman discharged just yesterday after an admission for mental status changes who has been readmitted through the ER this morning after she presented with chest discomfort. She is somnolent and slow to answer questions at the time of this exam. Reports discomfort in the lower mid chest / epigastrium. Denies radiation. Says is mild, not experienced before. Does not report any associated symptoms or any aggravating or relieving factors, although ER physician reported some improvement with s/l NTG. She notes gen malaise and weakness. Denies shortness of breath or swelling PKW-Cwkipe-Iashmg Hx Patient Social History Smoking Status: Former Smoker 2nd Hand Smoke Exposure: No Immunizations Up To Date Tetanus Booster (TDap): Unknown Date of Pneumonia Vaccine: May 16, 2019 Date of Influenza Vaccine: Apr 18, 2020 Past Medical History PMH As described under Assessment. Family Medical History Family Medical History: Does not report fam h/o early CAD or SCD Family History: Arthritis G8 BROTHER Completed stroke 19 MOTHER FH: anemia 19 MOTHER FH: lupus G8 SISTER FH: throat cancer 19 FATHER Hypertension G8 SISTER Myocardial infarction 19 MOTHER Thyroid disease 19 MOTHER G8 SISTER Allergies and Home Medications Allergies Coded Allergies: Pdukeiu-Che-Gvj Reductase Inhibitor (Verified Allergy, Intermediate, GI UPSET, N/V, 06/29/20) cefadroxil (Verified Allergy, Mild, 06/29/20) Sulfa (Sulfonamide Antibiotics) (Verified Allergy, Unknown, 06/29/20) oxycodone (Verified Allergy, Unknown, 06/29/20) "makes skin crawl" Home Medications Amoxicillin 500 Mg Capsule, 500 MG PO BID Prescribed by: JAMES TORRES on 07/05/20 1410 Bumetanide 1 Mg Tablet, 1 MG PO DAILY PRN for FLUID RETENTION, (Reported) Cetirizine HCl 10 Mg Tablet, 10 MG PO DAILY, (Reported) Ergocalciferol (Vitamin D2) 1,250 Mcg Capsule, 100,000 UNITS PO WEEK, (Reported) Folic Acid 1 Mg Tablet, 1 MG PO DAILY, (Reported) Insulin NPH Human Isophane 100 Unit/1 Ml Vial, 15 UNIT SQ BID, (Reported) Lactulose 20 Gm/30 Ml Solution, 20 GM PO BID Prescribed by: TOMASA CARMONA on 06/18/20 1103 Levothyroxine Sodium 125 Mcg Capsule, 125 MCG PO DAILY, (Reported) Magnesium Oxide 400 Mg Tablet, 400 MG PO BID, (Reported) Nitrofurantoin Monohyd/M-Cryst 100 Mg Capsule, 1 TAB PO DAILY, (Reported) Omeprazole 40 Mg Capsule.dr, 40 MG PO BID, (Reported) Ondansetron HCl 4 Mg Tablet, 4 MG PO DAILY, (Reported) Rifaximin 200 Mg Tablet, 200 MG PO BID Prescribed by: JAMES TORRES on 07/05/20 1410 Topiramate 50 Mg Tablet, 50 MG PO BID, (Reported) Patient Home Medication List Home Medication List Reviewed: Yes Physical Exam-Cardiology Physical Exam Vital Signs/I&O 07/07/20 07/07/20 07/07/20 07/07/20 08:55 08:55 09:20 10:59 Temp 37.2 Pulse 84 84 Resp 16 16 B/P (MAP) 133/53 (79) 121/49 Pulse Ox 93 99 O2 Delivery Room Air Room Air Nasal Cannula Nasal Cannula O2 Flow Rate 2.00 3.00 07/07/20 12:00 Temp 36.3 Pulse 108 Resp 18 B/P (MAP) 171/72 (105) Pulse Ox 98 O2 Delivery Nasal Cannula O2 Flow Rate 2.00 Capillary Refill : Less Than 3 Seconds Data Review Labs Laboratory Tests 07/07/20 09:00: White Blood Count 4.3, Red Blood Count 2.42L, Hemoglobin 7.6L, Hematocrit 23L, Mean Corpuscular Volume 94, Mean Corpuscular Hemoglobin 31, Mean Corpuscular Hemoglobin Concent 33, Red Cell Distribution Width 13.3, Platelet Count 174, Mean Platelet Volume 10.5, Immature Granulocyte % (Auto) 0, Neutrophils (%) (Auto) 61, Lymphocytes (%) (Auto) 19, Monocytes (%) (Auto) 10, Eosinophils (%) (Auto) 9, Basophils (%) (Auto) 1, Neutrophils # (Auto) 2.6, Lymphocytes # (Auto) 0.8L, Monocytes # (Auto) 0.4, Eosinophils # (Auto) 0.4H, Basophils # (Auto) 0.0, Immature Granulocyte # (Auto) 0.0, Prothrombin Time 14.2, INR Comment 1.1, Activated Partial Thromboplast Time 29, D-Dimer 3.59H, Sodium Level 142, Potassium Level 3.4L, Chloride Level 110H, Carbon Dioxide Level 23, Anion Gap 9, Blood Urea Nitrogen 13, Creatinine 1.20, Estimat Glomerular Filtration Rate 45, BUN/Creatinine Ratio 11, Glucose Level 117H, Calcium Level 9.3, Corrected Calcium 10.1, Magnesium Level 1.7, Total Bilirubin 0.3, Aspartate Amino Transf (AST/SGOT) 18, Alanine Aminotransferase (ALT/SGPT) 13, Alkaline Phosphatase 66, Myoglobin 72.3, Troponin I < 0.028, B-Type Natriuretic Peptide 102.1H, Total Protein 6.0L, Albumin 3.0L, Lipase 24 07/07/20 11:00: C-Reactive Protein High Sensitivity 1.22H, Procalcitonin 0.07 A/P-Cardiology Assessment/Admission Diagnosis Chest / epigastric discomfort w/o evidence of ACS Coronary artery disease - history of CABG 4 with Maze procedure and ligation of the left atrial appendage done in February 2018. 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 Managed by primary care physician History of hepatic cirrhosis, followed by primary care team History of esophageal paresis and gastritis. Followed and managed by primary care physician Discussion and Recomendations * Serial ECG and troponin to eval for ACS * I called Dr Alvarado on the phone and discussed the case with him. Pt is not suitable for antiplatelet therapy or for OAC for reasons note above * Monitor labs Clinical Quality Measures AMI/AHF: ASA po Prior to arrival: ARNIE Barbosa MD FACP FACC CCDS Jul 07, 2020 14:21
[2020-07-07] MEDS: CATHETER FLUSH 10 ML SYR IV SCH ×2 (14:49→21:25)
[2020-07-07] MEDS: VANCOMYCIN 1500 MG/NS 500 ML IVPB IV SCH ×2 (14:49)
--- NOTE | 2020-07-07 14:50 | NUR ---
ATTEMPTED TO REACH PT IVY.
--- NOTE | 2020-07-07 14:54 | NUR ---
DTR. FORD NOTIFIED. EXPLAINED CALL IN TIMES. UPDATED ON PT STATUS.
[2020-07-07] MEDS: inSUlin ASPART (NovoLOG) 1 UNIT/0.01 ML (CHARGE PER UNIT) SC SCH ×2 (16:22→21:25)
[2020-07-07] MEDS: PIPERACILLIN/TAZO 4.5 GM/NS 100 ML IV SCH ×2 (18:47)
[2020-07-07] MEDS: RT-ALBUTEROL/IPRATROPIUM 3 ML (DUONEB) VIAL INH SCH (23:05)
[2020-07-08] VITALS (7 sets, daily range): BP systolic 122–155; BP diastolic 56–70
[2020-07-08 00:51] LABS: HEMOGLOBIN 8.1 g/dL (11.5-16.0)
[2020-07-08] MEDS: PIPERACILLIN/TAZO 4.5 GM/NS 100 ML IV SCH ×6 (02:21→17:48)
[2020-07-08] MEDS: CATHETER FLUSH 10 ML SYR IV SCH ×3 (05:08→20:16)
[2020-07-08] MEDS: LEVOTHYROXINE 112 MCG (LEVOTHROID) TAB PO SCH (05:08)
[2020-07-08 05:26] LABS: BASOPHILS % (AUTO) 1 % (0-10); EOSINOPHILS # (AUTO) 0.3 10^3/uL (0.0-0.3); EOSINOPHILS % (AUTO) 10 % (0-10); HEMATOCRIT 25 % (35-52); HEMOGLOBIN 8.2 g/dL (11.5-16.0); LYMPHOCYTES # (AUTO) 0.4 10^3/uL (1.0-4.0); LYMPHOCYTES % (AUTO) 12 % (12-44); MEAN CORPUSCULAR HEMOGLOBIN 31 pg (25-34); MEAN CORPUSCULAR HGB CONC 32 g/dL (32-36); MEAN CORPUSCULAR VOLUME 95 fL (80-99); MEAN PLATELET VOLUME 10.5 fL (9.0-12.2); MONOCYTES # (AUTO) 0.4 10^3/uL (0.0-1.0); MONOCYTES % (AUTO) 10 % (0-12); NEUTROPHILS # (AUTO) 2.4 10^3/uL (1.8-7.8); NEUTROPHILS % (AUTO) 68 % (42-75); PLATELET COUNT 159 10^3/uL (130-400); WHITE BLOOD COUNT 3.6 10^3/uL (4.3-11.0)
[2020-07-08 05:38] LABS: ALBUMIN 2.8 GM/DL (3.2-4.5)
[2020-07-08 05:39] LABS: CALCIUM 8.9 MG/DL (8.5-10.1)
[2020-07-08 05:40] LABS: TOTAL PROTEIN 5.8 GM/DL (6.4-8.2)
[2020-07-08 05:42] LABS: BILIRUBIN,TOTAL 0.5 MG/DL (0.1-1.0)
[2020-07-08 05:44] LABS: CREATININE SERUM 1.33 MG/DL (0.60-1.30)
[2020-07-08] MEDS: inSUlin ASPART (NovoLOG) 1 UNIT/0.01 ML (CHARGE PER UNIT) SC SCH ×4 (06:24→20:17)
[2020-07-08] MEDS: RT-ALBUTEROL/IPRATROPIUM 3 ML (DUONEB) VIAL INH SCH ×2 (07:10→18:40)
--- NOTE | 2020-07-08 08:08 | Diagnostic Imaging Report ---
CHEST 1 VIEW, AP/PA ONLY Indication: Pneumonia Comparison: 07/07/2020 Findings: Stable left basilar heterogeneous opacities which are somewhat bandlike. No pleural effusion or pneumothorax. Stable cardiomediastinal silhouette. Stable right IJ Port-A-Cath. Impression: 1. No change in left basilar pulmonary opacities that may relate to pneumonia per provided history. Dictated by: Dictated on workstation # [id number]
[2020-07-08] MEDS ORDERED: RIFAXIMIN 200 MG TAB (NON-FORMULARY) PO SCH (09:00)
[2020-07-08] MEDS ORDERED: RIFAXIMIN 550 MG TABLET (XIFAXAN) PO ONE (09:22)
[2020-07-08] MEDS: PANTOPRAZOLE 40 MG (PROTONIX) TAB PO SCH (09:33)
[2020-07-08] MEDS: RIFAXIMIN 550 MG TABLET (XIFAXAN) PO SCH ×2 (09:33→20:16)
[2020-07-08] MEDS: LACTULOSE SYRUP 10GM/15ML (ENULOSE) 30ML UDC PO SCH ×2 (09:34→20:16)
--- NOTE | 2020-07-08 09:54 | History & Physical-Hospitalist ---
History of Present Illness HPI/Chief Complaint Patient arrives by EMS from [facility] at [place] with chief complaint of chest pain starting 730, approximately 1-1/2 hours prior to arrival without exertion. Not worse by sitting up or worse laying flat. She has not had anything to eat today. She is on an antacid and has a history of GAVE and hepatitis. She is on Xifaxan and lactulose. She recently discharged from the hospital yesterday for altered mental status related to this. She has a history of stents as well as CABG. Her chest pain is under her left breast just lateral to the midline/sternum and reproducible to direct palpation at the level of her costal margin. She has not taken anything for it yet. She did get her morning medications however. She rates her pain as a 5 out of 10 nonradiating. She is not having shortness of breath fever or chills. No diarrhea. She does not rely on supplemental oxygen but had O2 sats of 88 to 89% on room air. She had one attempted IV unsuccessfully so no nitroglycerin was given on route. 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 She says she has been told several times since she has been in the [facility] she has paroxysmal atrial fibrillation as well as EMS claim they saw this however no strip was provided. She does not take blood thinners nor have any medications for rate control. She is being treated outpatient for UTI with amoxicillin. The patient states she has not had her insulin yet but EMS remarks her blood sugar was 140. Upon my arrival the patient was somnolent would arouse and open eyes but not able to give any meaningful history. According to nursing staff who have taken care of her for multiple similar admissions family had been agreeable to no CODE STATUS but during one of her admission she woke up and stated that she wanted everything done. Date Seen 07/08/20 Time Seen by a Provider: 07:30 Attending Physician Tonie Jung MD PCP Carla Wilson MD Referring Physician Date of Admission Jul 07, 2020 at 10:17 Home Medications & Allergies Home Medications Reviewed patient Home Medication Reconciliation performed by pharmacy medication reconciliations radar technician and/or nursing. Patients Allergies have been reviewed. Allergies Allergies Coded Allergies Htjfcug-Baw-Wbo Reductase Inhibitor (Verified Allergy, Intermediate, GI UPSET, N/V, 07/07/20) cefadroxil (Verified Allergy, Mild, 07/07/20) Sulfa (Sulfonamide Antibiotics) (Verified Allergy, Unknown, 07/07/20) oxycodone (Verified Allergy, Unknown, 07/07/20) "makes skin crawl" Past Cdmxqgz-Guxkqt-Zadyry Hx Past Med/Social Hx: Reviewed and Corrections made Patient Social History Alcohol Use: Denies Use Recreational Drug Use: No Smoking Status: Former Smoker Former Smoker, Quit: May 20, 1980 Type Used: Cigarettes 2nd Hand Smoke Exposure: No Recent Foreign Travel: No Contact w/other who traveled: No Recent Hopitalizations: Yes (OUT OF HOSP YESTERDAY) Recent Infectious Disease Expo: No Immunizations Up To Date Tetanus Booster (TDap): Unknown Pediatric: Yes Date of Pneumonia Vaccine: May 16, 2019 Date of Influenza Vaccine: Apr 18, 2020 Seasonal Allergies Seasonal Allergies: Yes Past Medical History Surgeries: Adenoidectomy, Cardiac, CABG, Coronary Stent, Open Heart Surgery, Orthopedic, Tonsillectomy, Tubal Ligation Respiratory: COPD, Sleep Apnea Currently Using CPAP: No Currently Using BIPAP: No Cardiac: Atrial Fibrillation, Chronic Edema/Swelling, Coronary Artery Disease, Heart Attack, High Cholesterol, Hypertension Neurological: Dementia Reproductive: No Sexually Transmitted Disease: No HIV/AIDS: No Female Reproductive Disorders: Denies Menopausal Genitourinary: Bladder Infection, Renal Failure Gastrointestinal: Gastroesophageal Reflux, Liver Disease/Jaundice, Gastrointestinal Bleed, Diverticulosis, Hemorrhoids, Polyps, Cirrhosis Musculoskeletal: Degenerate Disk Disease, Arthritis, Chronic Back Pain, Fractures Endocrine: Diabetes, Insulin dep, Hypothyroidsim Loss of Vision: Denies Hearing Impairment: Denies Psychosocial: Anxiety Skin/Integumentary: Psoriasis History of Blood Disorders: Yes (CHRONIC ANEMIA-GI LOSS/GAVE SYNDROME; MULT TRANSFUSIONS/MULT ANTIBODIES) Adverse Reaction to Blood Wright: Yes (Antibody JKA) Family History Arthritis G8 BROTHER Completed stroke 19 MOTHER FH: anemia 19 MOTHER FH: lupus G8 SISTER FH: throat cancer 19 FATHER Hypertension G8 SISTER Myocardial infarction 19 MOTHER Thyroid disease 19 MOTHER G8 SISTER Hypertension, Stroke, Other Conditions/Hx PSH: -LEFT ANKLE SURGERY -LEFT KNEE SURGERY -CARDIAC CATHS--STENT X 1 -4 VESSEL CABG AT [facility] 02/16/18 -THORACENTESIS -TONSILLECTOMY/ADENOIDECTOMY -BTL -PORT RIGHT CHEST -LEXISCAN STRESS TEST 03/08/20--NORMAL. EF 70% Review of Systems Constitutional: see HPI Physical Exam Physical Exam Vital Signs Vital Signs - First Documented 07/07/20 09:20 O2 Flow Rate 2.00 Capillary Refill : Less Than 3 SecondsLess Than 3 Seconds Height, Weight, BMI Height: 5'4.00" Weight: 196lbs. 5.0oz. 89.187702cf; 41.07 BMI Method:Stated General Appearance: No Apparent Distress, Obese, Other (Somnolent) Respiratory: Chest Non Tender, Lungs Clear, Normal Breath Sounds, No Accessory Muscle Use, No Respiratory Distress Cardiovascular: Regular Rate, Rhythm, No Edema, No Gallop, No JVD, No Murmur, Normal Peripheral Pulses Gastrointestinal: Normal Bowel Sounds, No Organomegaly, No Pulsatile Mass, Non Tender, Soft Extremity: Other (Trace bilateral pretibial and pedal edema) Results Results/Procedures Labs Laboratory Tests 07/07/20 09:00 07/08/20 00:35 07/08/20 05:10 Patient resulted labs reviewed. Assessment/Plan Admission Diagnosis A/P 1. Reported chest pain stable EKG negative serial troponins compatible with likely noncardiac chest pain. 2. Altered mental status likely due to hepatic encephalopathy resuming lactulose and Xifaxan. 3. 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 4. Anemia secondary to GI bleed due to #3 hemoglobin up to 8.2 hemodynamically stable no evidence for active GI bleeding at this time. Continue to monitor. Admission Status: Inpatient Order (span 2 midnights) Reason for Inpatient Admission: See admission diagnosis Critical Care Critically Ill Patient Clinical Quality Measures AMI/AHF: ASA po Prior to arrival: TONIE Choe MD Jul 08, 2020 09:54
[2020-07-08] MEDS: VANCOMYCIN 1500 MG/NS 500 ML IVPB IV SCH ×2 (14:00)
--- NOTE | 2020-07-08 19:33 | Progress Note - Cardiology ---
Cardiology SOAP Progress Note Subjective: No cp or palp or syncope Epigastric discomfort present Malaise present No swelling No n/v/d Gen weakness present Objective: I&O/Vital Signs 07/08/20 07/08/20 07/08/20 07/08/20 07:47 08:00 12:00 12:48 Temp 36.2 35.9 Pulse 68 86 85 Resp 24 B/P (MAP) 132/63 (86) 140/63 (88) Pulse Ox 98 96 96 O2 Delivery Nasal Cannula Nasal Cannula Nasal Cannula O2 Flow Rate 2.00 2.00 2.00 07/08/20 07/08/20 07/08/20 15:17 18:40 19:10 Temp 36.2 36.4 Pulse 75 77 Resp 18 18 B/P (MAP) 155/66 (95) 139/70 (93) Pulse Ox 94 96 97 O2 Delivery Nasal Cannula Nasal Cannula Nasal Cannula O2 Flow Rate 2.00 2.00 2.00 07/08/20 00:00 Intake Total 1395 ml Output Total 300 ml Balance 1095 ml Weight (Pounds): 196 Weight (Ounces): 5.0 Weight (Calculated Kilograms): 89.796080 Constitutional: well-developed, well-nourished, other (somnolent, but appropriately responsive) Respiratory: No accessory muscle use; other (fair to good, bilateral air entry) Cardiovascular: regular rate-rhythm, S1 and S2, systolic murmur (soft KAVITA at card base) Gastrointestional: tender (in the epigastriu), soft; No guarding, No rebound; audible bowel sounds Extremities: No clubbing, No cyanosis, No significant edema Neurologic/Psychiatric: other (moves all limbs equally) Skin: No rash on exposed areas, No ulcerations on exposed areas Results/Procedures: Labs Laboratory Tests 07/07/20 20:11: Glucometer 164H 07/07/20 22:00: Troponin I < 0.028 07/08/20 00:35: Hemoglobin 8.1L, Hematocrit 25L 07/08/20 05:10: Hemoglobin 8.2L, Hematocrit 25L, White Blood Count 3.6L, Red Blood Count 2.67L, Mean Corpuscular Volume 95, Mean Corpuscular Hemoglobin 31, Mean Corpuscular Hemoglobin Concent 32, Red Cell Distribution Width 14.1, Platelet Count 159, Mean Platelet Volume 10.5, Immature Granulocyte % (Auto) 1, Neutrophils (%) (Auto) 68, Lymphocytes (%) (Auto) 12, Monocytes (%) (Auto) 10, Eosinophils (%) (Auto) 10, Basophils (%) (Auto) 1, Neutrophils # (Auto) 2.4, Lymphocytes # (Auto) 0.4L, Monocytes # (Auto) 0.4, Eosinophils # (Auto) 0.3, Basophils # (Auto) 0.0, Immature Granulocyte # (Auto) 0.0, Sodium Level 140, Potassium Level 4.0, Chloride Level 111H, Carbon Dioxide Level 25, Anion Gap 4L, Blood Urea Nitrogen 13, Creatinine 1.33H, Estimat Glomerular Filtration Rate 40, BUN/Creatinine Ratio 10, Glucose Level 141H, Calcium Level 8.9, Corrected Calcium 9.9, Total Bilirubin 0.5, Aspartate Amino Transf (AST/SGOT) 17, Alanine Aminotransferase (ALT/SGPT) 11, Alkaline Phosphatase 55, Total Protein 5.8L, Albumin 2.8L, Triglycerides Level 90, Cholesterol Level 159, LDL Cholesterol Direct 111, VLDL Cholesterol 18, HDL Cholesterol 36L 07/08/20 06:34: Glucometer 140H 07/08/20 11:01: Glucometer 130H 07/08/20 15:20: Glucometer 162H Microbiology 07/07/20 Blood Culture - Preliminary, Resulted No growth Laboratory Tests 07/07/20 09:00 07/08/20 00:35 07/08/20 05:10 A/P: Assessment: Chest / epigastric discomfort w/o evidence of ACS - likely non-cardiac - etiolog y unestablished Coronary artery disease - history of CABG 4 with Maze procedure and ligation of the left atrial appendage done in February 2018. 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 Managed by primary care physician History of hepatic cirrhosis, followed by primary care team History of esophageal paresis and gastritis. Followed and managed by primary care physician Plan: * I called Dr Alvarado on the phone on 07/07/19 and discussed the case with him. Pt is not suitable for antiplatelet therapy or for OAC for reasons noted above * Monitor labs * Cardiac status appears stable. Ok to d/c from cardiac standpoint when otherwise stable Clinical Quality Measures AMI/AHF: ASA po Prior to arrival: ARNIE Barbosa MD FACP FACC CCDS Jul 08, 2020 19:33
[2020-07-08] MEDS ORDERED: RIFAXIMIN 550 MG TABLET (XIFAXAN) PO SCH ×2 (21:00)
[2020-07-09] MEDS: PIPERACILLIN/TAZO 4.5 GM/NS 100 ML IV SCH ×4 (02:20→11:41)
[2020-07-09 04:46] VITALS: BP 128/59
[2020-07-09] MEDS: LEVOTHYROXINE 112 MCG (LEVOTHROID) TAB PO SCH (05:04)
[2020-07-09] MEDS: CATHETER FLUSH 10 ML SYR IV SCH ×2 (05:04→11:43)
[2020-07-09 05:32] LABS: BASOPHILS % (AUTO) 0 % (0-10); EOSINOPHILS # (AUTO) 0.4 10^3/uL (0.0-0.3); EOSINOPHILS % (AUTO) 12 % (0-10); HEMATOCRIT 25 % (35-52); HEMOGLOBIN 7.8 g/dL (11.5-16.0); LYMPHOCYTES # (AUTO) 0.5 10^3/uL (1.0-4.0); LYMPHOCYTES % (AUTO) 15 % (12-44); MEAN CORPUSCULAR HEMOGLOBIN 30 pg (25-34); MEAN CORPUSCULAR HGB CONC 32 g/dL (32-36); MEAN CORPUSCULAR VOLUME 95 fL (80-99); MEAN PLATELET VOLUME 10.5 fL (9.0-12.2); MONOCYTES # (AUTO) 0.4 10^3/uL (0.0-1.0); MONOCYTES % (AUTO) 11 % (0-12); NEUTROPHILS % (AUTO) 62 % (42-75); PLATELET COUNT 150 10^3/uL (130-400); WHITE BLOOD COUNT 3.3 10^3/uL (4.3-11.0)
[2020-07-09 05:36] LABS: ALBUMIN 2.7 GM/DL (3.2-4.5)
[2020-07-09 05:37] LABS: CALCIUM 8.8 MG/DL (8.5-10.1)
[2020-07-09 05:39] LABS: TOTAL PROTEIN 5.6 GM/DL (6.4-8.2)
[2020-07-09 05:40] LABS: BILIRUBIN,TOTAL 0.3 MG/DL (0.1-1.0)
[2020-07-09] MEDS: inSUlin ASPART (NovoLOG) 1 UNIT/0.01 ML (CHARGE PER UNIT) SC SCH ×2 (05:41→11:41)
[2020-07-09 05:42] LABS: CREATININE SERUM 1.54 MG/DL (0.60-1.30)
[2020-07-09] MEDS: LACTULOSE SYRUP 10GM/15ML (ENULOSE) 30ML UDC PO SCH (08:17)
[2020-07-09] MEDS: RIFAXIMIN 550 MG TABLET (XIFAXAN) PO SCH (08:17)
[2020-07-09] MEDS: PANTOPRAZOLE 40 MG (PROTONIX) TAB PO SCH (08:17)
[2020-07-09 08:34] VITALS: BP 128/61
[2020-07-09] MEDS ORDERED: LACT20SO2 PO (08:49)
[2020-07-09] MEDS ORDERED: ESOM40CA52 PO (08:49)
--- NOTE | 2020-07-09 10:37 | Progress Note - Hospitalist ---
EMILE SRINIVASANHAN MED STUDENT 07/09/20 1037: Subjective HPI/CC On Admission Date Seen by Provider: Jul 09, 2020 Time Seen by Provider: 08:25 Patient arrives by EMS from [facility] [place] with chief complaint of chest pain starting 730, approximately 1-1/2 hours prior to arrival without exertion. Not worse by sitting up or worse laying flat. She has not had anything to eat today. She is on an antacid and has a history of GAVE and hepatitis. She is on Xifaxan and lactulose. She recently discharged from the hospital yesterday for altered mental status related to this. She has a history of stents as well as CABG. Her chest pain is under her left breast just lateral to the midline/sternum and reproducible to direct palpation at the level of her costal margin. She has not taken anything for it yet. She did get her morning medications however. She rates her pain as a 5 out of 10 nonradiating. She is not having shortness of breath fever or chills. No diarrhea. She does not rely on supplemental oxygen but had O2 sats of 88 to 89% on room air. She had one attempted IV unsuccessfully so no nitroglycerin was given on route. 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 She says she has been told several times since she has been in the [facility] she has paroxysmal atrial fibrillation as well as EMS claim they saw this however no strip was provided. She does not take blood thinners nor have any medications for rate control. She is being treated outpatient for UTI with amoxicillin. The patient states she has not had her insulin yet but EMS remarks her blood sugar was 140. Upon my arrival the patient was somnolent would arouse and open eyes but not able to give any meaningful history. According to nursing staff who have taken care of her for multiple similar admissions family had been agreeable to no CODE STATUS but during one of her admission she woke up and stated that she wanted everything done. Subjective/Events-last exam Patient resting laying down in bed. Pt reports continued SOB and says shes had some subjective fevers but unsure when. No new complaints. Denies n/v, chest pain. Objective Exam Vital Signs Vital Signs Date Time Temp Pulse Resp B/P (MAP) Pulse Ox O2 Delivery O2 Flow Rate FiO2 07/09/20 08:34 36.8 66 20 128/61 (83) 98 Nasal Cannula 2.00 Capillary Refill : Less Than 3 SecondsLess Than 3 Seconds General Appearance: No Apparent Distress, WD/WN HEENT: PERRL/EOMI, Normal ENT Inspection Neck: Non Tender, Supple Respiratory: Chest Non Tender, Lungs Clear, Normal Breath Sounds, No Accessory Muscle Use, No Respiratory Distress Cardiovascular: Regular Rate, Rhythm, Normal Peripheral Pulses Gastrointestinal: Non Tender, Soft Back: Normal Inspection, No CVA Tenderness Extremity: Normal Inspection, Non Tender Neurologic/Psychiatric: Alert, Oriented x3, Normal Mood/Affect Skin: Normal Color, Warm/Dry Results/Procedures Lab Laboratory Tests 07/09/20 05:10 Patient resulted labs reviewed. Assessment/Plan Assessment and Plan Assess & Plan/Chief Complaint Assessment: Hx of chest pain PVST/Afib AMS GAVE Anemia Plan: Pain management Serial CXRs O2 support Cardiology consult D/C back to [place] once status improves Clinical Quality Measures AMI/AHF: ASA po Prior to arrival: SARAH Daly DO 07/09/202023: Supervisory-Addendum Brief Verification & Attestation Participated in pt care: history, MDM, physical Personally performed: exam, history, MDM, supervision of care Care discussed with: Medical Student Procedures: n/a Results interpretation: Verified all documentation Verification and Attestation of Medical Student E/M Service A medical student performed and documented this service in my presence. I reviewed and verified all information documented by the medical student and made modifications to such information, when appropriate. I personally performed the physical exam and medical decision making. Sarah Morrell, Jul 09, 2020,20:24 IMER SRINIVASAN MED STUDENT Jul 09, 2020 10:37 SARAH MORRELL DO Jul 09, 2020 20:24
[2020-07-09] MEDS ORDERED: AMOX-355 PO (10:44)
--- NOTE | 2020-07-09 10:45 | Discharge Inst-Skilled Nursing ---
Discharge Inst-Skilled NF Reconcile Patient Problems Problems Reviewed?: Yes Chief Complaint Patient arrives by EMS from group home at [place] with chief complaint of chest pain starting 730, approximately 1-1/2 hours prior to arrival without exertion. Not worse by sitting up or worse laying flat. She has not had anything to eat today. She is on an antacid and has a history of GAVE and hepatitis. She is on Xifaxan and lactulose. She recently discharged from the hospital yesterday for altered mental status related to this. She has a history of stents as well as C ABG. Her chest pain is under her left breast just lateral to the midline/sternum and reproducible to direct palpation at the level of her costal margin. She has not taken anything for it yet. She did get her morning medications however. She rates her pain as a 5 out of 10 nonradiating. She is not having shortness of breath fever or chills. No diarrhea. She does not rely on supplemental oxygen but had O2 sats of 88 to 89% on room air. She had one attempted IV unsuccessfully so no nitroglycerin was given on route. 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 She says she has been told several times since she has been in the group home she has paroxysmal atrial fibrillation as well as EMS claim they saw this however no strip was provided. She does not take blood thinners nor have any medications for rate control. She is being treated outpatient for UTI with amoxicillin. The patient states she has not had her insulin yet but EMS remarks her blood sugar was 140. Upon my arrival the patient was somnolent would arouse and open eyes but not able to give any meaningful history. According to nursing staff who have taken care of her for multiple similar admissions family had been agreeable to no CODE STATUS but during one of her admission she woke up and stated that she wanted everything done. Patient Instructions Patient Problems: Liver failure Anemia Chronic GI bleed Goal: Return to independence Consult/Follow Up/Orders Follow Up Appt.: [facility] rounds Skilled NF Admit to: [facility] Certification (SNF) I certify that SNF services are required to be given on an inpatient basis because of the above named patient's need for halfway care on a continuing basis for the conditions(s) for which he/she was receiving inpatient hospital services prior to his/her transfer to the SNF. Half-Way Facility Order: Nursing Services, Journeyman Mechanic-Evaluate & Treat, Physical Therapy-Evaluate & Treat, Speech Language-Evaluate & Treat Oxygen Delivery Method: Nasal Cannula Discharge Diet: No Restrictions Resuscitation Status: Full Code New & Resume Previous Orders New Medications: Amoxicillin/Potassium Clav (Augmentin 500-125 Tablet) 1 Each Tablet 1 EACH PO BID, #10 TAB Continued Medications: Bumetanide (Bumetanide) 1 Mg Tablet 1 MG PO DAILY PRN for FLUID RETENTION, TAB Cetirizine HCl (Zyrtec) 10 Mg Tablet 10 MG PO DAILY, TAB Ergocalciferol (Vitamin D2) (Vitamin D2) 1,250 Mcg Capsule 1250 UNITS PO THURSDAY, CAP Esomeprazole Magnesium (Esomeprazole Magnesium) 40 Mg Capsule.dr 40 MG PO BID, CAP Folic Acid (Folic Acid) 1 Mg Tablet 1 MG PO DAILY, TAB Insulin NPH Human Isophane (Novolin N) 100 Unit/1 Ml Vial 15 UNIT SQ BID, VIAL Lactulose (Lactulose) 20 Gm/30 Ml Solution 30 ML PO BID, EA Levothyroxine Sodium (Levothyroxine) 125 Mcg Capsule 125 MCG PO DAILY, CAP Magnesium Oxide (Magox 400) 400 Mg Tablet 400 MG PO BID, TAB Nitrofurantoin Monohyd/M-Cryst (Macrobid 100 mg Capsule) 100 Mg Capsule 1 TAB PO DAILY, CAP Ondansetron HCl (Ondansetron HCl) 4 Mg Tablet 4 MG PO DAILY, TAB Rifaximin (Xifaxan) 200 Mg Tablet 200 MG PO BID for 30 Days, #60 TAB Topiramate (Topiramate) 50 Mg Tablet 50 MG PO BID, TAB Discontinued Medications: Amoxicillin (Amoxicillin) 500 Mg Capsule 500 MG PO BID for 5 Days, #10 CAP Sarah Morrell Jul 09, 2020 10:44 SARAH MORRELL DO Jul 09, 2020 10:45
--- NOTE | 2020-07-09 10:46 | Discharge Summary ---
Discharge Summary Hospital Course Was the Problem List Reviewed?: Yes Problems/Dx: (1) Hepatic encephalopathy Status: Acute (2) Coronary artery disease Status: Chronic (3) Transfusion-dependent anemia Status: Chronic (4) GI bleeding Status: Chronic (5) Hypertension Status: Chronic (6) 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 (7) Hx of CABG Status: Chronic Hospital Course Date of Admission: Jul 07, 2020 at 10:17 Admission Diagnosis : Family Physician/Provider: Carla Wilson MD Date of Discharge: 07/09/20 Discharge Diagnosis: chest pain, CAD prev CABG, hepatic encephalopathy Hospital Course: Hospital Course: Pt had an uneventful hospital course, she was admitted for unstable angina and chest pain. Cardiology addressed this issue and found the patient to be optimized on medical therapy, could not be a candidate for anti- platelet therapy because of gastrointestinal bleeds. She really needs hospice and that was in the midst of being set up and then patient became aware and changed her mind and wanted to be full code and continue aggressive care. I did update [facility] hospice case manager and they will begin the process of talking about hosp ice. She was deemed stable for [facility] for PT and OT. Pt appeared to be very alert, we will try to get her Rifaxamin supply to the correction. Labs and Pending Lab Test: Laboratory Tests 07/08/20 11:01: Glucometer 130H 07/08/20 15:20: Glucometer 162H 07/08/20 20:17: Glucometer 180H 07/09/20 05:10: White Blood Count 3.3L, Red Blood Count 2.58L, Hemoglobin 7.8L, Hematocrit 25L, Mean Corpuscular Volume 95, Mean Corpuscular Hemoglobin 30, Mean Corpuscular Hemoglobin Concent 32, Red Cell Distribution Width 14.1, Platelet Count 150, Mean Platelet Volume 10.5, Immature Granulocyte % (Auto) 0, Neutrophils (%) (Auto) 62, Lymphocytes (%) (Auto) 15, Monocytes (%) (Auto) 11, Eosinophils (%) (Auto) 12H, Basophils (%) (Auto) 0, Neutrophils # (Auto) 2.0, Lymphocytes # (Auto) 0.5L, Monocytes # (Auto) 0.4, Eosinophils # (Auto) 0.4H, Basophils # (Auto) 0.0, Immature Granulocyte # (Auto) 0.0, Sodium Level 142, Potassium Level 4.0, Chloride Level 112H, Carbon Dioxide Level 24, Anion Gap 6, Blood Urea Nitrogen 14, Creatinine 1.54H, Estimat Glomerular Filtration Rate 34, BUN/Creatinine Ratio 9, Glucose Level 144H, Calcium Level 8.8, Corrected Calcium 9.8, Total Bilirubin 0.3, Aspartate Amino Transf (AST/SGOT) 14, Alanine Aminotransferase (ALT/SGPT) 8, Alkaline Phosphatase 57, Total Protein 5.6L, Albumin 2.7L 07/09/20 05:57: Glucometer 134H Microbiology 07/07/20 Blood Culture - Preliminary, Resulted No growth Home Meds Active Augmentin 500-125 Tablet (Amoxicillin/Potassium Clav) 1 Each Tablet 1 Each PO BID Xifaxan (Rifaximin) 200 Mg Tablet 200 Mg PO BID 30 Days Amoxicillin 500 Mg Capsule 500 Mg PO BID 5 Days Reported Lactulose 20 Gm/30 Ml Solution 30 Ml PO BID Esomeprazole Magnesium 40 Mg Capsule.dr 40 Mg PO BID Vitamin D2 (Ergocalciferol (Vitamin D2)) 1,250 Mcg Capsule 1,250 Units PO THURSDAY Macrobid 100 mg Capsule (Nitrofurantoin Monohyd/M-Cryst) 100 Mg Capsule 1 Tab PO DAILY Levothyroxine (Levothyroxine Sodium) 125 Mcg Capsule 125 Mcg PO DAILY Folic Acid 1 Mg Tablet 1 Mg PO DAILY Novolin N (Insulin NPH Human Isophane) 100 Unit/1 Ml Vial 15 Unit SQ BID Ondansetron HCl 4 Mg Tablet 4 Mg PO DAILY Topiramate 50 Mg Tablet 50 Mg PO BID Bumetanide 1 Mg Tablet 1 Mg PO DAILY PRN Magox 400 (Magnesium Oxide) 400 Mg Tablet 400 Mg PO BID Zyrtec (Cetirizine HCl) 10 Mg Tablet 10 Mg PO DAILY Assessment/Pt Instructions [facility] rounds 1 week and need hospice conversation Discharge Planning: <30 minutes discharge planning Discharge Instructions Discharge Diet: No Restrictions Discharge Physical Examination Vital Signs Vital Signs Date Time Temp Pulse Resp B/P (MAP) Pulse Ox O2 Delivery O2 Flow Rate FiO2 07/09/20 08:34 36.8 66 20 128/61 (83) 98 Nasal Cannula 2.00 General Appearance: No Apparent Distress, WD/WN, Chronically ill Respiratory: Lungs Clear Cardiovascular: Regular Rate, Rhythm Allergies: Coded Allergies: Xbkjyuk-Pnd-Ccf Reductase Inhibitor (Verified Allergy, Intermediate, GI UPSET, N/V, 07/07/20) cefadroxil (Verified Allergy, Mild, 07/07/20) Sulfa (Sulfonamide Antibiotics) (Verified Allergy, Unknown, 07/07/20) oxycodone (Verified Allergy, Unknown, 07/07/20) "makes skin crawl" Discharge Summary Date of Admission Jul 07, 2020 at 10:17 Date of Discharge Discharge Date: Jul 09, 2020 Admission Diagnosis A/P 1. Reported chest pain stable EKG negative serial troponins compatible with likely noncardiac chest pain. 2. Altered mental status likely due to hepatic encephalopathy resuming lactulose and Xifaxan. 3. 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 4. Anemia secondary to GI bleed due to #3 hemoglobin up to 8.2 hemodynamically stable no evidence for active GI bleeding at this time. Continue to monitor. Clinical Quality Measures AMI/AHF: ASA po Prior to arrival: MICHELLE Daly DO Jul 09, 2020 10:46
[2020-07-09] MEDS: RT-ALBUTEROL/IPRATROPIUM 3 ML (DUONEB) VIAL INH SCH (10:57)
--- NOTE | 2020-07-09 11:34 | NUR ---
I CALLED [facility] AND WENT THROUGH THE MED LIS BROUGHT OVER FROM THIS CUSTODIAL TO COMPLETE THIS MED REC. I WAS PUTTING IN THE MED REC FROM THE MED LIST ON HER FILE, BUT WAS UNABLE TO COMPLETELY FINISH BEFORE THE FINALIZED DISCHARGE WAS PUT IN. EVERYTHING DOES SEEM TO MATCH UP WITH THE MED LIST.
[2020-07-09 12:00] VITALS: BP 143/68
--- NOTE | 2020-07-09 12:53 | NUR ---
The pt was alert and oriented. She shared that she recently lost the use of her legs, but feels her strength returning. Quality Improvement Coordinator offered empathic listening as the pt shared her health challenges and expressed a desire to return home. She shared concerns for her 's health, and states she does not have a nga community nor many family members available to provide support. She said her niece cleans their home, but she also does not want to burden her. The pt welcomed prayer and said "the prayers are working. Keep praying for me."
--- NOTE | 2020-07-09 13:49 | NUR ---
[facility]
[2020-07-09 14:25] VITALS: BP 143/68
--- NOTE | 2020-07-10 07:59 | NUR ---
Received dietary consult for MST score. Note pt has been discharged at this time. Tomy You, MS RD LD
== END 2020-07-09 14:25 | DRG 313 ==
LOC: EDUNIT# 08:52 → ER 08:54 → 4TH 10:17
PROVIDERS: ADMIT Internal Medicine; ATTEND Internal Medicine
DX: R07.89 Other chest pain (principal); K31.811 Angiodysplasia of stomach and duodenum with bleeding; J18.9 Pneumonia, unspecified organism; I25.110 Atherosclerotic heart disease of native coronary artery with unstable angina pectoris; K72.90 Hepatic failure, unspecified without coma; K74.60 Unspecified cirrhosis of liver; D64.9 Anemia, unspecified; J44.9 Chronic obstructive pulmonary disease, unspecified; G47.30 Sleep apnea, unspecified; I10 Essential (primary) hypertension; E78.00 Pure hypercholesterolemia, unspecified; F03.90 Unspecified dementia, unspecified severity, without behavioral disturbance, psychotic disturbance, mood disturbance, and anxiety; K21.9 Gastro-esophageal reflux disease without esophagitis; M19.90 Unspecified osteoarthritis, unspecified site; G89.29 Other chronic pain; M54.9 Dorsalgia, unspecified; E11.9 Type 2 diabetes mellitus without complications; E03.9 Hypothyroidism, unspecified; F41.9 Anxiety disorder, unspecified; I49.5 Sick sinus syndrome; L40.9 Psoriasis, unspecified; I48.0 Paroxysmal atrial fibrillation; I25.2 Old myocardial infarction; Z90.49 Acquired absence of other specified parts of digestive tract; Z95.1 Presence of aortocoronary bypass graft; Z95.5 Presence of coronary angioplasty implant and graft; Z79.4 Long term (current) use of insulin; Z88.2 Allergy status to sulfonamides; Z88.5 Allergy status to narcotic agent; Z87.891 Personal history of nicotine dependence
CPT/HCPCS: 36415; 71045; 71275; 80053; 80061; 82962; 83690; 83735; 83874; 83880; 84145; 84484; 85014; 85018; 85025; 85379; 85610; 85730; 86141; 86850; 86900; 86901; 86922; 87040; 93005; 93041; 94640; 94760

== ENCOUNTER → 2020-10-31 | Outpatient (RCR) | payer MEDICARE ==
[2020-08-02 14:47] LABS: BASOPHILS % (AUTO) 1 % (0-10); EOSINOPHILS # (AUTO) 0.5 10^3/uL (0.0-0.3); EOSINOPHILS % (AUTO) 9 % (0-10); HEMATOCRIT 30 % (35-52); HEMOGLOBIN 9.6 g/dL (11.5-16.0); LYMPHOCYTES # (AUTO) 0.8 10^3/uL (1.0-4.0); LYMPHOCYTES % (AUTO) 17 % (12-44); MEAN CORPUSCULAR HEMOGLOBIN 30 pg (25-34); MEAN CORPUSCULAR HGB CONC 32 g/dL (32-36); MEAN CORPUSCULAR VOLUME 93 fL (80-99); MONOCYTES # (AUTO) 0.5 10^3/uL (0.0-1.0); MONOCYTES % (AUTO) 9 % (0-12); NEUTROPHILS # (AUTO) 3.2 10^3/uL (1.8-7.8); NEUTROPHILS % (AUTO) 64 % (42-75); PLATELET COUNT 173 10^3/uL (130-400)
[2020-08-02 15:07] LABS: ALBUMIN 3.7 GM/DL (3.2-4.5); BILIRUBIN,TOTAL 0.4 MG/DL (0.1-1.0); CALCIUM 9.8 MG/DL (8.5-10.1); CREATININE SERUM 1.47 MG/DL (0.60-1.30); POTASSIUM 3.7 MMOL/L (3.6-5.0); TOTAL PROTEIN 7.5 GM/DL (6.4-8.2)
[~2020-10-31] MED LIST changes: +AMOX-355 PO; +DARBEPOETIN 40 MCG/ML (ARANESP) 1 ML VIAL SC SCH; +ESOM40CA52 PO; +FERRIC CARBOXYMALTOSE (CANCER) 750 MG in NS (IVPB) CANCER CENTER 250 ML IV SCH; -LACT10SO PO; +LACT10SO3 PO; -METO10TA3 PO; +MTC10T PO
[2020-10-31 14:47] LABS: ABSOLUTE RETIC # 61 10e9/uL (24-90); BASOPHILS % (AUTO) 1 % (0-10); EOSINOPHILS # (AUTO) 0.4 10^3/uL (0.0-0.3); EOSINOPHILS % (AUTO) 9 % (0-10); HEMATOCRIT 31 % (35-52); HEMOGLOBIN 10.3 g/dL (11.5-16.0); LYMPHOCYTES # (AUTO) 0.8 10^3/uL (1.0-4.0); LYMPHOCYTES % (AUTO) 19 % (12-44); MEAN CORPUSCULAR HEMOGLOBIN 31 pg (25-34); MEAN CORPUSCULAR HGB CONC 33 g/dL (32-36); MEAN CORPUSCULAR VOLUME 93 fL (80-99); MEAN PLATELET VOLUME 10.3 fL (9.0-12.2); MONOCYTES # (AUTO) 0.4 10^3/uL (0.0-1.0); MONOCYTES % (AUTO) 8 % (0-12); NEUTROPHILS # (AUTO) 2.8 10^3/uL (1.8-7.8); NEUTROPHILS % (AUTO) 63 % (42-75); PLATELET COUNT 138 10^3/uL (130-400); RETICULOCYTE % 1.84 % (0.50-2.40); WHITE BLOOD COUNT 4.4 10^3/uL (4.3-11.0)
[2020-10-31 15:04] LABS: ALBUMIN 3.7 GM/DL (3.2-4.5); BILIRUBIN,TOTAL 0.5 MG/DL (0.1-1.0); CREATININE SERUM 1.84 MG/DL (0.60-1.30); POTASSIUM 3.4 MMOL/L (3.6-5.0); TOTAL PROTEIN 7.1 GM/DL (6.4-8.2)
== END | disposition home or self-care (01) ==
LOC: ONC 08-02 14:28
PROVIDERS: ATTEND Internal Medicine Hematology & Oncology
DX: D50.0 Iron deficiency anemia secondary to blood loss (chronic) (principal); E11.22 Type 2 diabetes mellitus with diabetic chronic kidney disease; I13.0 Hypertensive heart and chronic kidney disease with heart failure and stage 1 through stage 4 chronic kidney disease, or unspecified chronic kidney disease; N18.4 Chronic kidney disease, stage 4 (severe); D63.1 Anemia in chronic kidney disease; E53.8 Deficiency of other specified B group vitamins; D50.9 Iron deficiency anemia, unspecified; I25.10 Atherosclerotic heart disease of native coronary artery without angina pectoris; E03.9 Hypothyroidism, unspecified; K29.51 Unspecified chronic gastritis with bleeding; I48.91 Unspecified atrial fibrillation; K74.60 Unspecified cirrhosis of liver; I50.30 Unspecified diastolic (congestive) heart failure; K64.9 Unspecified hemorrhoids; K44.9 Diaphragmatic hernia without obstruction or gangrene; E78.5 Hyperlipidemia, unspecified; E66.9 Obesity, unspecified; M19.90 Unspecified osteoarthritis, unspecified site; I47.1 Supraventricular tachycardia; K63.5 Polyp of colon; K31.811 Angiodysplasia of stomach and duodenum with bleeding; Z79.899 Other long term (current) drug therapy; Z80.0 Family history of malignant neoplasm of digestive organs; Z68.33 Body mass index [BMI] 33.0-33.9, adult
CPT/HCPCS: 80053; 82728; 84443; 85025; G0463; 36591; 85045; 96365

== ENCOUNTER 2021-02-01 10:25 | Outpatient (RCR) | payer MEDICARE ==
[2020-11-29 12:29] LABS: BASOPHILS % (AUTO) 1 % (0-10); EOSINOPHILS # (AUTO) 0.3 10^3/uL (0.0-0.3); EOSINOPHILS % (AUTO) 7 % (0-10); HEMATOCRIT 30 % (35-52); HEMOGLOBIN 10.2 g/dL (11.5-16.0); LYMPHOCYTES % (AUTO) 20 % (12-44); MEAN CORPUSCULAR HEMOGLOBIN 32 pg (25-34); MEAN CORPUSCULAR HGB CONC 34 g/dL (32-36); MEAN CORPUSCULAR VOLUME 93 fL (80-99); MEAN PLATELET VOLUME 10.5 fL (9.0-12.2); MONOCYTES # (AUTO) 0.4 10^3/uL (0.0-1.0); MONOCYTES % (AUTO) 9 % (0-12); NEUTROPHILS # (AUTO) 3.2 10^3/uL (1.8-7.8); NEUTROPHILS % (AUTO) 64 % (42-75); PLATELET COUNT 164 10^3/uL (130-400); WHITE BLOOD COUNT 5.1 10^3/uL (4.3-11.0)
[2020-11-29 13:07] LABS: ALBUMIN 3.8 GM/DL (3.2-4.5); BILIRUBIN,TOTAL 0.6 MG/DL (0.1-1.0); CALCIUM 9.9 MG/DL (8.5-10.1); CREATININE SERUM 2.11 MG/DL (0.60-1.30); POTASSIUM 3.3 MMOL/L (3.6-5.0); TOTAL PROTEIN 7.3 GM/DL (6.4-8.2)
[2020-12-27 14:55] LABS: BASOPHILS % (AUTO) 1 % (0-10); EOSINOPHILS # (AUTO) 0.3 10^3/uL (0.0-0.3); EOSINOPHILS % (AUTO) 7 % (0-10); HEMATOCRIT 31 % (35-52); HEMOGLOBIN 10.4 g/dL (11.5-16.0); LYMPHOCYTES # (AUTO) 0.7 10^3/uL (1.0-4.0); LYMPHOCYTES % (AUTO) 15 % (12-44); MEAN CORPUSCULAR HEMOGLOBIN 32 pg (25-34); MEAN CORPUSCULAR HGB CONC 34 g/dL (32-36); MEAN CORPUSCULAR VOLUME 94 fL (80-99); MONOCYTES # (AUTO) 0.3 10^3/uL (0.0-1.0); MONOCYTES % (AUTO) 8 % (0-12); NEUTROPHILS # (AUTO) 3.1 10^3/uL (1.8-7.8); NEUTROPHILS % (AUTO) 69 % (42-75); PLATELET COUNT 159 10^3/uL (130-400); WHITE BLOOD COUNT 4.5 10^3/uL (4.3-11.0)
[2021-01-30 14:07] LABS: BASOPHILS # (AUTO) 0.1 10^3/uL (0.0-0.1); BASOPHILS % (AUTO) 1 % (0-10); EOSINOPHILS # (AUTO) 0.4 10^3/uL (0.0-0.3); EOSINOPHILS % (AUTO) 7 % (0-10); HEMATOCRIT 32 % (35-52); HEMOGLOBIN 10.8 g/dL (11.5-16.0); LYMPHOCYTES # (AUTO) 0.9 10^3/uL (1.0-4.0); LYMPHOCYTES % (AUTO) 17 % (12-44); MEAN CORPUSCULAR HEMOGLOBIN 33 pg (25-34); MEAN CORPUSCULAR HGB CONC 34 g/dL (32-36); MEAN CORPUSCULAR VOLUME 97 fL (80-99); MEAN PLATELET VOLUME 10.8 fL (9.0-12.2); MONOCYTES # (AUTO) 0.4 10^3/uL (0.0-1.0); MONOCYTES % (AUTO) 8 % (0-12); NEUTROPHILS # (AUTO) 3.6 10^3/uL (1.8-7.8); NEUTROPHILS % (AUTO) 66 % (42-75); PLATELET COUNT 163 10^3/uL (130-400); WHITE BLOOD COUNT 5.4 10^3/uL (4.3-11.0)
[2021-01-30 14:25] LABS: ALBUMIN 3.9 GM/DL (3.2-4.5); BILIRUBIN,TOTAL 0.5 MG/DL (0.1-1.0); CREATININE SERUM 2.23 MG/DL (0.60-1.30); POTASSIUM 4.2 MMOL/L (3.6-5.0); TOTAL PROTEIN 7.5 GM/DL (6.4-8.2)
[~2021-02-01 10:25] MED LIST changes: -DARBEPOETIN 40 MCG/ML (ARANESP) 1 ML VIAL SC SCH; +ERGO1250 PO; -ERGO50006 PO; -OMEP40CA27 PO; +OMEP40CA6 PO
== END 2021-02-27 | disposition home or self-care (01) ==
LOC: ONC 10:25
PROVIDERS: ATTEND Internal Medicine Hematology & Oncology
DX: D50.0 Iron deficiency anemia secondary to blood loss (chronic) (principal); E11.22 Type 2 diabetes mellitus with diabetic chronic kidney disease; I13.0 Hypertensive heart and chronic kidney disease with heart failure and stage 1 through stage 4 chronic kidney disease, or unspecified chronic kidney disease; N18.4 Chronic kidney disease, stage 4 (severe); D63.1 Anemia in chronic kidney disease; E53.8 Deficiency of other specified B group vitamins; D50.9 Iron deficiency anemia, unspecified; I25.10 Atherosclerotic heart disease of native coronary artery without angina pectoris; E03.9 Hypothyroidism, unspecified; K29.51 Unspecified chronic gastritis with bleeding; I48.91 Unspecified atrial fibrillation; K74.60 Unspecified cirrhosis of liver; I50.30 Unspecified diastolic (congestive) heart failure; K64.9 Unspecified hemorrhoids; K44.9 Diaphragmatic hernia without obstruction or gangrene; E78.5 Hyperlipidemia, unspecified; E66.9 Obesity, unspecified; M19.90 Unspecified osteoarthritis, unspecified site; I47.1 Supraventricular tachycardia; K63.5 Polyp of colon; K31.811 Angiodysplasia of stomach and duodenum with bleeding; Z79.899 Other long term (current) drug therapy; Z80.0 Family history of malignant neoplasm of digestive organs; Z68.33 Body mass index [BMI] 33.0-33.9, adult; K76.6 Portal hypertension; I85.00 Esophageal varices without bleeding; K31.89 Other diseases of stomach and duodenum; Z79.890 Hormone replacement therapy; K90.9 Intestinal malabsorption, unspecified; Z87.891 Personal history of nicotine dependence
CPT/HCPCS: 36591; 80053; 82728; 83090; 83921; 85025; 96365; 99213

== ENCOUNTER 2021-04-01 16:47 | Inpatient (IN) | payer MEDICARE ==
[~2021-04-01] VITALS: Ht 167 cm; Wt 81.3 kg
[~2021-04-01 16:47] MED LIST changes: -FERRIC CARBOXYMALTOSE (CANCER) 750 MG in NS (IVPB) CANCER CENTER 250 ML IV SCH
--- NOTE | 2021-04-01 17:09 | ED General ---
General Chief Complaint: Altered Mental Status Stated Complaint: AMS Source of Information: Patient Exam Limitations: No Limitations History of Present Illness Date Seen by Provider: Apr 01, 2021 Time Seen by Provider: 16:58 Initial Comments 65-year-old female with past medical history of diabetes, liver disease, CKD, GERD coming in due to burning when she urinates and confusion. Symptoms started yesterday. is with her and provides the majority of the history. He says her confusion comes and goes. He has been giving her all of her medications including her lactulose and rifaximin. She has had a bowel movement today. No bloody stools. Denies any chest pain, shortness of breath, abdominal pain, nausea, vomiting, diarrhea, fever, chills, weakness, numbness, or any other concerns. Allergies and Home Medications Allergies Coded Allergies: Qltvihe-Pyb-Pdy Reductase Inhibitor (Verified Allergy, Intermediate, GI UPSET, N/V, 07/07/20) cefadroxil (Verified Allergy, Mild, 07/07/20) Sulfa (Sulfonamide Antibiotics) (Verified Allergy, Unknown, 07/07/20) oxycodone (Verified Allergy, Unknown, 07/07/20) "makes skin crawl" Patient Home Medication List Home Medication List Reviewed: Yes Amoxicillin/Potassium Clav (Augmentin 500-125 Tablet) 1 Each Tablet, 1 EACH PO BID Prescribed by: MICHELLE GARCIA on 07/09/20 1044 Bumetanide (Bumetanide) 1 Mg Tablet, 1 MG PO DAILY PRN for FLUID RETENTION, (Reported) Entered as Reported by: AMY TORRES on 07/26/19 1148 Cetirizine HCl (Zyrtec) 10 Mg Tablet, 10 MG PO DAILY, (Reported) Entered as Reported by: AMY TORRES on 06/18/18 1438 Ergocalciferol (Vitamin D2) (Vitamin D2) 1,250 Mcg Capsule, 1,250 UNITS PO THURSDAY, (Reported) Entered as Reported by: TOMASA CARMONA on 06/18/20 1102 Esomeprazole Magnesium (Esomeprazole Magnesium) 40 Mg Capsule.dr, 40 MG PO BID, (Reported) Entered as Reported by: ENMA MELENDREZ on 07/09/20 0849 Folic Acid (Folic Acid) 1 Mg Tablet, 1 MG PO DAILY, (Reported) Entered as Reported by: TOMASA CARMONA on 06/18/20 1058 Insulin NPH Human Isophane (Novolin N) 100 Unit/1 Ml Vial, 15 UNIT SQ BID, (Reported) Entered as Reported by: NITHIN KRUSE on 06/14/20 1728 Lactulose (Lactulose) 20 Gm/30 Ml Solution, 30 ML PO BID, (Reported) Entered as Reported by: ENMA MELENDREZ on 07/09/20 0849 Levothyroxine Sodium (Levothyroxine) 125 Mcg Capsule, 125 MCG PO DAILY, (R eported) Entered as Reported by: TOMASA CARMONA on 06/18/20 1059 Magnesium Oxide (Magox 400) 400 Mg Tablet, 400 MG PO BID, (Reported) Entered as Reported by: AMY TORRES on 11/03/18 1153 Nitrofurantoin Monohyd/M-Cryst (Macrobid 100 mg Capsule) 100 Mg Capsule, 1 TAB PO DAILY, (Reported) Entered as Reported by: TOMASA CARMONA on 06/18/20 1059 Ondansetron HCl (Ondansetron HCl) 4 Mg Tablet, 4 MG PO DAILY, (Reported) Entered as Reported by: NITHIN KRUSE on 06/14/20 1726 Rifaximin (Xifaxan) 200 Mg Tablet, 200 MG PO BID Prescribed by: JAMES TORRES on 07/05/20 1410 Topiramate (Topiramate) 50 Mg Tablet, 50 MG PO BID, (Reported) Entered as Reported by: NITHIN KRUSE on 06/14/20 1726 Review of Systems Review of Systems Constitutional: No chills, No fever EENTM: No blurred vision Respiratory: No cough, No short of breath Cardiovascular: No chest pain Gastrointestinal: No abdominal pain, No diarrhea, No nausea, No vomiting Genitourinary: dysuria, frequency Musculoskeletal: no symptoms reported Skin: no symptoms reported Psychiatric/Neurological: No Symptoms Reported Hematologic/Lymphatic: No Symptoms Reported Immunological/Allergic: no symptoms reported All Other Systems Reviewed Negative Unless Noted: Yes Past Fjclvpr-Xgpvtu-Znozjz Hx Immunizations Up To Date Tetanus Booster (TDap): Unknown PED Vaccines UTD: Yes Seasonal Allergies Seasonal Allergies: Yes Past Medical History Surgeries: Yes (PORT RIGHT CHEST) Adenoidectomy, Cardiac, CABG, Coronary Stent, Open Heart Surgery, Orthopedic, Tonsillectomy, Tubal Ligation Respiratory: Yes (LEFT PLEURAL EFFUSION-S/P THORACENTESIS; RESP FAILURE) Pneumonia, Sleep Apnea Currently Using CPAP: No Currently Using BIPAP: No Cardiac: Yes (CHF, STENT X1; CABG 02/16/2018 x 4 @ [facility];NSTEMI X 3) Atrial Fibrillation, Chronic Edema/Swelling, Coronary Artery Disease, Heart Attack, High Cholesterol, Hypertension Neurological: Yes (CHRONIC BASELINE CONFUSION;HEPATIC ENCEPHALOPATHY-MULT EPISODES) Dementia Reproductive Disorders: No Female Reproductive Disorders: 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 LIVER DZ/ELEV AMMONIA) Gastroesophageal Reflux, Liver Disease/Jaundice, Gastrointestinal Bleed, Diverticulosis, Hemorrhoids, Polyps, Cirrhosis Musculoskeletal: Yes (POOR AMBULATION--USES WALKER SINCE CABG; L ANKLE AND KNEE SURGERIES) Degenerate Disk Disease, Arthritis, Chronic Back Pain, Fractures Endocrine: Yes (OBESITY) Diabetes, Insulin dep, Hypothyroidsim HEENT: No Loss of Vision: Denies Hearing Impairment: Denies Cancer: No Psychosocial: Yes Anxiety Integumentary: Yes Psoriasis Blood Disorders: Yes (CHRONIC ANEMIA-GI LOSS/GAVE SYNDROME; MULT TRANSFUSIONS/MULT ANTIBODIES) Adverse Reaction/Blood Tranf: Yes (Antibody JKA) Family Medical History Arthritis G8 BROTHER Completed stroke 19 MOTHER FH: anemia 19 MOTHER FH: lupus G8 SISTER FH: throat cancer 19 FATHER Hypertension G8 SISTER Myocardial infarction 19 MOTHER Thyroid disease 19 MOTHER G8 SISTER Hypertension, Stroke, Other Conditions/Hx PSH: -LEFT ANKLE SURGERY -LEFT KNEE SURGERY -CARDIAC CATHS--STENT X 1 -4 VESSEL CABG AT [facility] 02/16/18 -THORACENTESIS -TONSILLECTOMY/ADENOIDECTOMY -BTL -PORT RIGHT CHEST -LEXISCAN STRESS TEST 03/08/20--NORMAL. EF 70% Physical Exam Vital Signs Vital Signs - First Documented 04/01/21 16:50 Temp 36.6 Pulse 109 Resp 18 B/P (MAP) 126/86 (99) Pulse Ox 96 Capillary Refill : Height, Weight, BMI Height: 5'4.00" Weight: 196lbs. 5.0oz. 89.573200st; 41.07 BMI Method:Stated General Appearance: No Apparent Distress, WD/WN HEENT: PERRL/EOMI, TMs Normal, Pharynx Normal Neck: Full Range of Motion, Normal Inspection, Non Tender, Supple Respiratory: Chest Non Tender, Lungs Clear, Normal Breath Sounds, No Accessory Muscle Use, No Respiratory Distress Cardiovascular: Regular Rate, Rhythm, No Edema, Normal Peripheral Pulses Gastrointestinal: Normal Bowel Sounds, Non Tender, Soft; No Distended, No Guarding Back: Normal Inspection, No CVA Tenderness, No Vertebral Tenderness Extremity: Normal Capillary Refill, Normal Inspection, Normal Range of Motion, Non Tender, No Calf Tenderness, No Pedal Edema Neurologic/Psychiatric: Alert, No Motor/Sensory Deficits, Normal Mood/Affect, Disoriented, Other (Asterixis present) Skin: Normal Color, Warm/Dry Lymphatic: No Adenopathy Procedures/Interventions Date of ETT Placement: May 30, 2018 Time of ETT Placement: 1330 Progress/Results/Core Measures Suspected Sepsis SIRS Temperature: Pulse: Respiratory Rate: Laboratory Tests 04/01/21 17:14: White Blood Count 5.6 Blood Pressure / Mean: Laboratory Tests 04/01/21 17:14: Creatinine 2.81H, INR Comment 1.1, Platelet Count 184, Total Bilirubin 0.8 Results/Orders Lab Results Laboratory Tests Test 04/01/21 17:14 Range/Units White Blood Count 5.6 4.3-11.0 10^3/uL Red Blood Count 3.68 L 3.80-5.11 10^6/uL Hemoglobin 11.6 11.5-16.0 g/dL Hematocrit 34 L 35-52 % Mean Corpuscular Volume 94 80-99 fL Mean Corpuscular Hemoglobin 32 25-34 pg Mean Corpuscular Hemoglobin Concent 34 32-36 g/dL Red Cell Distribution Width 12.9 10.0-14.5 % Platelet Count 184 130-400 10^3/uL Mean Platelet Volume 11.0 9.0-12.2 fL Immature Granulocyte % (Auto) 0 % Neutrophils (%) (Auto) 63 42-75 % Lymphocytes (%) (Auto) 20 12-44 % Monocytes (%) (Auto) 10 0-12 % Eosinophils (%) (Auto) 6 0-10 % Basophils (%) (Auto) 1 0-10 % Neutrophils # (Auto) 3.5 1.8-7.8 10^3/uL Lymphocytes # (Auto) 1.1 1.0-4.0 10^3/uL Monocytes # (Auto) 0.6 0.0-1.0 10^3/uL Eosinophils # (Auto) 0.3 0.0-0.3 10^3/uL Basophils # (Auto) 0.1 0.0-0.1 10^3/uL Immature Granulocyte # (Auto) 0.0 0.0-0.1 10^3/uL Prothrombin Time 14.7 12.2-14.7 SEC INR Comment 1.1 0.8-1.4 Activated Partial Thromboplast Time 30 24-35 SEC Urine Color YELLOW Urine Clarity CLEAR Urine pH 6.0 5-9 Urine Specific [place] 1.020 1.016-1.022 Urine Protein NEGATIVE NEGATIVE Urine Glucose (UA) NEGATIVE NEGATIVE Urine Ketones NEGATIVE NEGATIVE Urine Nitrite NEGATIVE NEGATIVE Urine Bilirubin NEGATIVE NEGATIVE Urine Urobilinogen 0.2 < = 1.0 MG/DL Urine Leukocyte Esterase NEGATIVE NEGATIVE Urine RBC (Auto) NEGATIVE NEGATIVE Urine RBC NONE /HPF Urine WBC NONE /HPF Urine Squamous Epithelial Cells 2-5 /HPF Urine Crystals NONE /LPF Urine Bacteria TRACE /HPF Urine Casts PRESENT /LPF Urine Hyaline Casts 25-50 H /LPF Urine Mucus NEGATIVE /LPF Urine Culture Indicated NO Sodium Level 139 135-145 MMOL/L Potassium Level 3.8 3.6-5.0 MMOL/L Chloride Level 104 98-107 MMOL/L Carbon Dioxide Level 20 L 21-32 MMOL/L Anion Gap 15 H 5-14 MMOL/L Blood Urea Nitrogen 41 H 7-18 MG/DL Creatinine 2.81 H 0.60-1.30 MG/DL Estimat Glomerular Filtration Rate 17 BUN/Creatinine Ratio 15 Glucose Level 218 H 70-105 MG/DL Calcium Level 10.4 H 8.5-10.1 MG/DL Corrected Calcium 10.4 H 8.5-10.1 MG/DL Total Bilirubin 0.8 0.1-1.0 MG/DL Aspartate Amino Transf (AST/SGOT) 15 5-34 U/L Alanine Aminotransferase (ALT/SGPT) 11 0-55 U/L Alkaline Phosphatase 68 40-136 U/L Ammonia 97 H 11-32 UMOL/L Total Protein 7.7 6.4-8.2 GM/DL Albumin 4.0 3.2-4.5 GM/DL My Orders Orders - IAN CLINTON MD Ammonia (04/01/21 17:02) Cbc With Automated Diff (04/01/21 17:02) Comprehensive Metabolic Panel (04/01/21 17:02) Protime With Inr (04/01/21 17:02) Partial Thromboplastin Time (04/01/21 17:02) Ua Culture If Indicated (04/01/21 17:02) Chest 1 View, Ap/Pa Only (04/01/21 17:02) Lactulose Oral Solution (Enulose Oral So (04/01/21 17:15) Vital Signs/I&O 04/01/21 16:50 Temp 36.6 Pulse 109 Resp 18 B/P (MAP) 126/86 (99) Pulse Ox 96 Capillary Refill : Progress Note : Progress Note 65-year-old female with above history coming in due to urinary symptoms as well as increasing confusion. ABCs were intact and vitals are stable on present ation. Physical exam reassuring although she is confused, disoriented, and only answer some questions appropriately. She does have asterixis on exam and clinically I am concerned for hepatic encephalopathy. Given an extra dose of oral lactulose while in the ED. MELD is 18 today. Patient continues to be confused, discussed the case with Dr. Garcia who is willing to admit the patient as an inpatient to the [facility] service for further evaluation and management for her hepatic encephalopathy. Potential small i nfiltrate on CXR so started azithro as well. Diagnostic Imaging Diagonstic Imaging: Xray Plain Films/CT/US/NM/MRI: chest Comments [facility] [place], [place] NAME: YOLETTE PISANO [facility] REC#: [id number] PT STATUS: REG ER : 1955 PHYSICIAN: IAN CLINTON MD ADMIT DATE: 04/01/21/ER Signed Date of Exam:04/01/21 CHEST 1 VIEW, AP/PA ONLY INDICATION: 65-year-old female with lethargy and confusion. COMPARISONS: 07/08/2020 FINDINGS: Single view of the chest shows the cardiac contour to be within normal limits. There is some background chronic parenchymal changes. There is ill-defined density in the lateral left lower chest measuring 2.1 cm. There is a previous median sternotomy. There is a right IJ Mediport with the tip projected over the confluence of innominate veins. Soft tissues and bony thorax are normal. IMPRESSION: Background chronic parenchymal changes with some perihilar atelectatic infiltrates with some minimal left basilar infiltrates. There is a 2 cm ill-defined density in the left lower chest. Correlation with CT is recommended. Dictated by: Dictated on workstation # [id number] Dict: 04/01/[id number] Trans: 04/01/211806 [facility] [id number] Interpreted by: CHRIS FRENCH MD Electronically signed by: CHRIS FRENCH MD 04/01/211806 Departure Impression Primary Impression: Hepatic encephalopathy Additional Impression: CKD (chronic kidney disease) Qualified Codes: N18.9 - Chronic kidney disease, unspecified Disposition: ADMITTED INPATIENT Condition: Stable Departure-Patient Inst. Referrals: JAMES TORRES MD (PCP/Family) Primary Care Physician IAN CLINTON MD Apr 01, 2021 17:09
[2021-04-01 17:27] LABS: BASOPHILS # (AUTO) 0.1 10^3/uL (0.0-0.1); BASOPHILS % (AUTO) 1 % (0-10); EOSINOPHILS # (AUTO) 0.3 10^3/uL (0.0-0.3); EOSINOPHILS % (AUTO) 6 % (0-10); HEMATOCRIT 34 % (35-52); HEMOGLOBIN 11.6 g/dL (11.5-16.0); LYMPHOCYTES # (AUTO) 1.1 10^3/uL (1.0-4.0); LYMPHOCYTES % (AUTO) 20 % (12-44); MEAN CORPUSCULAR HEMOGLOBIN 32 pg (25-34); MEAN CORPUSCULAR HGB CONC 34 g/dL (32-36); MEAN CORPUSCULAR VOLUME 94 fL (80-99); MONOCYTES # (AUTO) 0.6 10^3/uL (0.0-1.0); MONOCYTES % (AUTO) 10 % (0-12); NEUTROPHILS # (AUTO) 3.5 10^3/uL (1.8-7.8); NEUTROPHILS % (AUTO) 63 % (42-75); PLATELET COUNT 184 10^3/uL (130-400); WHITE BLOOD COUNT 5.6 10^3/uL (4.3-11.0)
[2021-04-01 17:40] LABS: POTASSIUM 3.8 MMOL/L (3.6-5.0)
[2021-04-01 17:41] LABS: CALCIUM 10.4 MG/DL (8.5-10.1); INR 1.1 (0.8-1.4); PROTHROMBIN TIME PATIENT 14.7 SEC (12.2-14.7)
[2021-04-01 17:43] LABS: TOTAL PROTEIN 7.7 GM/DL (6.4-8.2)
[2021-04-01 17:44] LABS: BILIRUBIN,TOTAL 0.8 MG/DL (0.1-1.0)
[2021-04-01 17:46] LABS: CREATININE SERUM 2.81 MG/DL (0.60-1.30)
[2021-04-01 17:54] LABS: BILIRUBIN,URINE NEGATIVE (NEGATIVE); CLARITY,URINE CLEAR; COLOR,URINE YELLOW; GLUCOSE, URINE (UA) NEGATIVE (NEGATIVE); KETONES,URINE NEGATIVE (NEGATIVE); LEUKOCYTE ESTERASE ,URINE NEGATIVE (NEGATIVE); NITRITE,URINE NEGATIVE (NEGATIVE); PROTEIN,URINE NEGATIVE (NEGATIVE)
[2021-04-01 18:05] LABS: BACTERIA,URINE TRACE /HPF; HYALINE CASTS, URINE 25-50 /LPF
--- NOTE | 2021-04-01 18:09 | Diagnostic Imaging Report ---
INDICATION: 65-year-old female with lethargy and confusion. COMPARISONS: 07/08/2020 FINDINGS: Single view of the chest shows the cardiac contour to be within normal limits. There is some background chronic parenchymal changes. There is ill-defined density in the lateral left lower chest measuring 2.1 cm. There is a previous median sternotomy. There is a right IJ Mediport with the tip projected over the confluence of innominate veins. Soft tissues and bony thorax are normal. IMPRESSION: Background chronic parenchymal changes with some perihilar atelectatic infiltrates with some minimal left basilar infiltrates. There is a 2 cm ill-defined density in the left lower chest. Correlation with CT is recommended. Dictated by: Dictated on workstation # [id number]
[2021-04-01] MEDS ORDERED: AZITHROMYCIN 250 MG TAB (ZITHROMAX) PO ONE (18:30)
[2021-04-01] MEDS: LACTULOSE SYRUP 10GM/15ML (ENULOSE) 30ML UDC PO ONE ×2 (18:35→18:38)
[2021-04-01] MEDS ORDERED: CATHETER FLUSH 10 ML SYR IV PRN (20:00)
[2021-04-01 20:46] VITALS: BP 126/86
[2021-04-01] MEDS ORDERED: RIFAXIMIN 200 MG TAB (NON-FORMULARY) PO SCH (21:00)
[2021-04-01] MEDS ORDERED: RT-ALBUTEROL SULF 2.5 MG/3 ML PRE-MIX VIAL INH PRN (21:00)
[2021-04-01] MEDS: inSUlin ASPART (NovoLOG) 1 UNIT/0.01 ML (CHARGE PER UNIT) SC SCH (21:53)
[2021-04-01] MEDS: LACTULOSE SYRUP 10GM/15ML (ENULOSE) 30ML UDC PO SCH (21:53)
[2021-04-01] MEDS: RIFAXIMIN 550 MG TABLET (XIFAXAN) PO SCH (21:53)
[2021-04-01] MEDS: CATHETER FLUSH 10 ML SYR IV SCH (22:07)
[2021-04-02 00:04] VITALS: BP 124/60
[2021-04-02 04:07] VITALS: BP 126/59
[2021-04-02] MEDS: inSUlin ASPART (NovoLOG) 1 UNIT/0.01 ML (CHARGE PER UNIT) SC SCH ×4 (05:18→20:38)
[2021-04-02 05:23] LABS: BASOPHILS % (AUTO) 1 % (0-10); EOSINOPHILS # (AUTO) 0.4 10^3/uL (0.0-0.3); EOSINOPHILS % (AUTO) 6 % (0-10); HEMATOCRIT 32 % (35-52); HEMOGLOBIN 10.8 g/dL (11.5-16.0); LYMPHOCYTES # (AUTO) 1.6 10^3/uL (1.0-4.0); LYMPHOCYTES % (AUTO) 28 % (12-44); MEAN CORPUSCULAR HEMOGLOBIN 32 pg (25-34); MEAN CORPUSCULAR HGB CONC 34 g/dL (32-36); MEAN CORPUSCULAR VOLUME 94 fL (80-99); MEAN PLATELET VOLUME 10.7 fL (9.0-12.2); MONOCYTES # (AUTO) 0.6 10^3/uL (0.0-1.0); MONOCYTES % (AUTO) 11 % (0-12); NEUTROPHILS # (AUTO) 3.2 10^3/uL (1.8-7.8); NEUTROPHILS % (AUTO) 54 % (42-75); PLATELET COUNT 156 10^3/uL (130-400); WHITE BLOOD COUNT 5.8 10^3/uL (4.3-11.0)
[2021-04-02 05:30] LABS: ALBUMIN 3.7 GM/DL (3.2-4.5)
[2021-04-02 05:31] LABS: POTASSIUM 3.5 MMOL/L (3.6-5.0)
[2021-04-02 05:32] LABS: CALCIUM 10.2 MG/DL (8.5-10.1)
[2021-04-02 05:35] LABS: BILIRUBIN,TOTAL 0.6 MG/DL (0.1-1.0)
[2021-04-02 05:37] LABS: CREATININE SERUM 2.78 MG/DL (0.60-1.30)
[2021-04-02] MEDS: LEVOTHYROXINE 125 MCG (LEVOTHROID) TABLET PO SCH (05:41)
[2021-04-02] MEDS: CATHETER FLUSH 10 ML SYR IV SCH ×3 (05:42→22:22)
[2021-04-02 07:59] VITALS: BP 117/72
[2021-04-02] MEDS: LACTULOSE SYRUP 10GM/15ML (ENULOSE) 30ML UDC PO SCH ×2 (08:08→20:38)
[2021-04-02] MEDS: RIFAXIMIN 550 MG TABLET (XIFAXAN) PO SCH ×2 (08:08→20:38)
[2021-04-02 09:51] LABS: AMYLASE 64 U/L (25-125)
[2021-04-02 10:00] LABS: LIPASE 43 U/L (8-78)
--- NOTE | 2021-04-02 11:19 | History & Physical-Hospitalist ---
LAYTON LOCKWOOD MED STUDENT 04/02/21 1119: History of Present Illness HPI/Chief Complaint Pt presents to floor from ER with complaints of AMS and incontinence. She is a poor historian and doesn't remember much of the events that occurred the past 2 days. She states that she began feeling unwell 2 days ago until yesterday afternoon when her became concerned about her confusion/incontinence and brought her to the ED: She expresses prior similar events but cannot remember any details. She has history of DM, HTN, liver disease, CKD, GERD, and hypot hyroidism. She was offered lactulose in the ED and on the floor, but she refused to take it both times. Last BM a few days ago. No complaints of pain, chest pain, SOB, N/V. Date Seen 04/02/21 Time Seen by a Provider: 08:00 Attending Physician Sarah Garcia DO PCP Caral Wilson MD Referring Physician Date of Admission Apr 01, 2021 at 18:13 Home Medications & Allergies Home Medications Reviewed patient Home Medication Reconciliation performed by pharmacy medication reconciliations photographic reproduction technician and/or nursing. Patients Allergies have been reviewed. Allergies Allergies Coded Allergies Bwdwgwt-Zjg-Lgx Reductase Inhibitor (Verified Allergy, Intermediate, GI UPSET, N/V, 07/07/20) cefadroxil (Verified Allergy, Mild, 07/07/20) Sulfa (Sulfonamide Antibiotics) (Verified Allergy, Unknown, 07/07/20) oxycodone (Verified Allergy, Unknown, 07/07/20) "makes skin crawl" Past Wkwqaiy-Kpypvx-Orylse Hx Patient Social History Marrital Status: Tobacco Use?: No Tobacco type used: Cigarettes Smoking Status: Never a Smoker Smokeless Tobacco Frequency: Never a User Substance use?: No Alcohol Use?: No Pt feels they are or have been: No Immunizations Up To Date Date of Influenza Vaccine: Mar 22, 2021 First/Initial COVID19 Vaccinat: YES Second COVID19 Vaccination Garry: YES Tetanus Booster (TDap): Unknown Hepatitis A: Yes Hepatitis B: Yes PED Vaccines UTD: Yes Date of Pneumonia Vaccine: May 16, 2019 Seasonal Allergies Seasonal Allergies: Yes Current Status Advance Directives: No Communicates: Verbally Primary Language: Lithuanian Preferred Spoken Language: Lithuanian Is interpretation needed?: No Implanted or Applied Medical D: Pacemaker Past Medical History Surgeries: Adenoidectomy, Cardiac, CABG, Coronary Stent, Open Heart Surgery, Orthopedic, Tonsillectomy, Tubal Ligation Pneumonia, Sleep Apnea Currently Using CPAP: No Currently Using BIPAP: No Atrial Fibrillation, Chronic Edema/Swelling, Coronary Artery Disease, Heart Attack, High Cholesterol, Hypertension Dementia 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 Sexually Transmitted Disease: No HIV/AIDS: No Bladder Infection, Renal Failure Gastroesophageal Reflux, Liver Disease/Jaundice, Gastrointestinal Bleed, Diverticulosis, Hemorrhoids, Polyps, Cirrhosis Degenerate Disk Disease, Arthritis, Chronic Back Pain, Fractures Diabetes, Insulin dep, Hypothyroidsim Loss of Vision: Denies Hearing Impairment: Denies Anxiety Psoriasis Blood Disorders: Yes (CHRONIC ANEMIA-GI LOSS/GAVE SYNDROME; MULT TRANSFUSIONS/MULT ANTIBODIES) Adverse Reaction/Blood Tranf: Yes (Antibody JKA) PMHx: Paroxysmal Atrial fibrillation Gastric antral vascular ectasia (GAVE) CAD NIDDM Chronic Microcytic anemia, transfusion dependent HTN HLD CHF CKD [place] (Nstemi x3) s/p CABG Hypothyroidism Anxiety Disorder Family Medical History Arthritis G8 BROTHER Completed stroke 19 MOTHER FH: anemia 19 MOTHER FH: lupus G8 SISTER FH: throat cancer 19 FATHER Hypertension G8 SISTER Myocardial infarction 19 MOTHER Thyroid disease 19 MOTHER G8 SISTER Hypertension, Stroke, Other Conditions/Hx PSH: -LEFT ANKLE SURGERY -LEFT KNEE SURGERY -CARDIAC CATHS--STENT X 1 -4 VESSEL CABG AT [facility] 02/16/18 -THORACENTESIS -TONSILLECTOMY/ADENOIDECTOMY -BTL -PORT RIGHT CHEST -LEXISCAN STRESS TEST 03/08/20--NORMAL. EF 70% Review of Systems Constitutional: No chills, No dizziness, No fever EENTM: No hearing loss, No eye pain, No vision loss Respiratory: No cough, No dyspnea on exertion, No hemoptysis, No short of breath Cardiovascular: No chest pain, No edema, No palpitations Gastrointestinal: No abdominal pain, No constipation, No dysphagia, No hematemesis; heartburn; No jaundice, No nausea, No vomiting Genitourinary: dysuria (burning with urination); No hematuria; incontinence Musculoskeletal: No back pain, No joint pain, No muscle pain Skin: No change in color, No change in hair/nails Psychiatric/Neurological: Denies Headache, Denies Numbness, Denies Paresthesia, Denies Tingling All Other Systems Reviewed Negative Unless Noted: Yes Physical Exam Physical Exam Vital Signs Vital Signs - First Documented 04/01/21 04/01/21 04/01/21 16:50 19:30 20:46 Temp 36.6 Pulse 109 Resp 18 B/P (MAP) 126/86 (99) Pulse Ox 96 O2 Delivery Room Air FiO2 21 Capillary Refill : Less Than 3 Seconds Height, Weight, BMI Height: 5'4.00" Weight: 196lbs. 5.0oz. [id number]; 29.15 BMI Method:Stated General Appearance: No Apparent Distress, WD/WN Eyes: Bilateral Eye Normal Inspection, Bilateral Eye PERRL, Bilateral Eye EOMI HEENT: PERRL/EOMI, Normal ENT Inspection, Pharynx Normal (edentulous maxilla) Neck: Full Range of Motion, Normal Inspection, Non Tender, Supple Respiratory: Chest Non Tender, Lungs Clear, Normal Breath Sounds, No Accessory Muscle Use, No Respiratory Distress Cardiovascular: Regular Rate, Rhythm, No Edema, No Gallop, No JVD, No Murmur, Normal Peripheral Pulses Gastrointestinal: Normal Bowel Sounds, No Pulsatile Mass, Soft, Tenderness (mild diffuse tenderness through all abd quadrants, nonrigid, no rebound) Rectal: Deferred Back: Normal Inspection, No CVA Tenderness, No Vertebral Tenderness Extremity: Normal Capillary Refill, Non Tender, No Calf Tenderness, No Pedal Edema Neurologic/Psychiatric: Alert, No Motor/Sensory Deficits, Normal Mood/Affect, Disoriented, Other (pt is alert, oriented to self and place, unable to state todays date. she has bouts of confusion in conversation where she answers with a nonsensical response, but is able to be reoriented and answer appropriately.) Skin: Normal Color, Warm/Dry, Other (scattered scabs/ulcerations on abd) Lymphatic: No Adenopathy Results Results/Procedures Labs Laboratory Tests 04/01/21 17:14 04/02/21 05:15 Patient resulted labs reviewed. 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 She is non-compliant with Lactulose. DELROY noted on labs. Overall declined since last seen. Source: patient Past Mdvpmza-Srccor-Dmjtbv Hx Patient Social History Marrital Status: Employed/Student: retired Smoking Status: Never a Smoker Past Medical History High Cholesterol, Hypertension Cirrhosis Family Medical History Arthritis G8 BROTHER Completed stroke 19 MOTHER FH: anemia 19 MOTHER FH: lupus G8 SISTER FH: throat cancer 19 FATHER Hypertension G8 SISTER Myocardial infarction 19 MOTHER Thyroid disease 19 MOTHER G8 SISTER Review of Systems Constitutional: see HPI EENTM: no symptoms reported Respiratory: no symptoms reported Cardiovascular: no symptoms reported Gastrointestinal: no symptoms reported Musculoskeletal: no symptoms reported Skin: no symptoms reported Psychiatric/Neurological: Other (confusion) Physical Exam Physical Exam General Appearance: No Apparent Distress, Chronically ill Eyes: Right Eye Normal Inspection, Right Eye PERRL HEENT: PERRL/EOMI, Normal ENT Inspection, Pharynx Normal, Moist Mucous Membranes Neck: Full Range of Motion, Normal Inspection, Non Tender Respiratory: Chest Non Tender, Lungs Clear, Normal Breath Sounds, No Accessory Muscle Use, No Respiratory Distress Cardiovascular: Regular Rate, Rhythm, No Edema, No Gallop, No JVD, No Murmur, Normal Peripheral Pulses Gastrointestinal: Normal Bowel Sounds, No Organomegaly, No Pulsatile Mass, Non Tender, Soft Back: Normal Inspection, No CVA Tenderness, No Vertebral Tenderness Extremity: Normal Capillary Refill, Normal Inspection, Normal Range of Motion, Non Tender, No Calf Tenderness, No Pedal Edema Neurologic/Psychiatric: Alert, No Motor/Sensory Deficits, Normal Mood/Affect, Disoriented, Other (pt is alert, oriented to self and place, unable to state todays date. she has bouts of confusion in conversation where she answers with a nonsensical response, but is able to be reoriented and answer appropriately.) Skin: Normal Color, Warm/Dry Lymphatic: No Adenopathy Assessment/Plan Admission Diagnosis Assessment: Hepatic encephalopathy DELROY GAVE syndrome transfusion dependent in the past TANG Plan: Lactulose Monitor confusion Home meds Admission Status: Observation Supervisory-Addendum Brief Verification & Attestation Participated in pt care: history, MDM, physical Personally performed: exam, history, MDM, supervision of care Care discussed with: Medical Student Procedures: n/a Results interpretation: Verified all documentation Verification and Attestation of Medical Student E/M Service A medical student performed and documented this service in my presence. I reviewed and verified all information documented by the medical student and made modifications to such information, when appropriate. I personally performed the physical exam and medical decision making. Sarah Garcia, Apr 03, 2021,05:45 LAYTON LOCKWOOD MED STUDENT Apr 02, 2021 11:19 SARAH GARCIA DO Apr 03, 2021 05:49
[2021-04-02 12:13] VITALS: BP 123/80
[2021-04-02] MEDS ORDERED: ONDA-105 PO (12:47)
[2021-04-02] MEDS ORDERED: INSU100V5 SC (12:47)
[2021-04-02] MEDS ORDERED: NF-RIFA200 PO (12:47)
[2021-04-02] MEDS ORDERED: OMEP20CA18 PO (12:47)
[2021-04-02] MEDS ORDERED: SPIR25TA5 PO (12:47)
[2021-04-02 16:05] VITALS: BP 110/74
--- NOTE | 2021-04-02 16:19 | Diagnostic Imaging Report ---
PROCEDURE: US Abdomen, limited. TECHNIQUE: Multiple realtime grayscale images were obtained over the abdomen in various projections. INDICATION: Ascites, cirrhosis. FINDINGS: The previous gallbladder ultrasound exam of 03/31/2013 noted hepatomegaly and cholelithiasis but failed to show any sign of acute cholecystitis. There was no evidence for ascites but there was a right pleural effusion. The CT abdomen/pelvis exam of 06/08/2020 suggested cirrhosis of the liver but failed to show any sign of an acute abnormality as well. On this exam, there is no evidence for ascites. The liver measures 16 cm in length and has a cirrhotic appearance. Spectral color-flow imaging of the portal vein shows there is normal directional flow within the vein. The gallbladder appears to be filled with calculi. The shadowing from the gallbladder does limit the evaluation of the gallbladder wall. The wall where visualized measures 3 mm which is at the uppermost portion of normal. There is no pericholecystic fluid present. The common bile duct, the pancreas, and aorta were not well visualized as they were obscured by bowel gas. The right kidney is generally unremarkable. IMPRESSION: 1. There is no evidence for ascites. 2. The gallbladder is filled with calculi. There is no clear evidence for acute cholecystitis but if further imaging for an acute abnormality of the gallbladder is desired, then a nuclear medicine hepatobiliary scan would be recommended. 3. The appearance of the liver does suggest cirrhosis. Dictated by: Dictated on workstation # [id number]
[2021-04-02] MEDS: AZITHROMYCIN 250 MG TAB (ZITHROMAX) PO SCH (18:04)
[2021-04-02 19:32] VITALS: BP 105/65
[2021-04-03] VITALS (7 sets, daily range): BP systolic 110–130; BP diastolic 53–79
[2021-04-03 05:26] LABS: BASOPHILS % (AUTO) 1 % (0-10); EOSINOPHILS # (AUTO) 0.4 10^3/uL (0.0-0.3); EOSINOPHILS % (AUTO) 8 % (0-10); HEMATOCRIT 30 % (35-52); HEMOGLOBIN 10.3 g/dL (11.5-16.0); LYMPHOCYTES # (AUTO) 1.4 10^3/uL (1.0-4.0); LYMPHOCYTES % (AUTO) 29 % (12-44); MEAN CORPUSCULAR HEMOGLOBIN 32 pg (25-34); MEAN CORPUSCULAR HGB CONC 34 g/dL (32-36); MEAN CORPUSCULAR VOLUME 93 fL (80-99); MEAN PLATELET VOLUME 10.5 fL (9.0-12.2); MONOCYTES # (AUTO) 0.5 10^3/uL (0.0-1.0); MONOCYTES % (AUTO) 10 % (0-12); NEUTROPHILS # (AUTO) 2.6 10^3/uL (1.8-7.8); NEUTROPHILS % (AUTO) 52 % (42-75); PLATELET COUNT 144 10^3/uL (130-400); WHITE BLOOD COUNT 4.9 10^3/uL (4.3-11.0)
[2021-04-03 05:35] LABS: ALBUMIN 3.5 GM/DL (3.2-4.5); POTASSIUM 3.6 MMOL/L (3.6-5.0)
[2021-04-03 05:37] LABS: CALCIUM 9.9 MG/DL (8.5-10.1)
[2021-04-03 05:38] LABS: TOTAL PROTEIN 6.7 GM/DL (6.4-8.2)
[2021-04-03 05:39] LABS: BILIRUBIN,TOTAL 0.6 MG/DL (0.1-1.0)
[2021-04-03 05:41] LABS: CREATININE SERUM 2.73 MG/DL (0.60-1.30)
[2021-04-03] MEDS: inSUlin ASPART (NovoLOG) 1 UNIT/0.01 ML (CHARGE PER UNIT) SC SCH ×4 (06:13→21:16)
[2021-04-03] MEDS: CATHETER FLUSH 10 ML SYR IV SCH ×3 (06:13→21:17)
[2021-04-03] MEDS: LEVOTHYROXINE 125 MCG (LEVOTHROID) TABLET PO SCH (06:13)
[2021-04-03] MEDS: PANTOPRAZOLE 20 MG TABLET (PROTONIX) PO SCH ×2 (06:16→16:11)
[2021-04-03] MEDS: toPIRamate 25 MG (TOPAMAX) TAB PO SCH ×2 (08:06→21:16)
[2021-04-03] MEDS: LACTULOSE SYRUP 10GM/15ML (ENULOSE) 30ML UDC PO SCH ×2 (08:06→21:17)
[2021-04-03] MEDS: RIFAXIMIN 550 MG TABLET (XIFAXAN) PO SCH ×2 (08:06→21:16)
[2021-04-03] MEDS: MAGNESIUM OXIDE (MAG-OX)400 MG TAB PO SCH ×2 (08:06→18:25)
[2021-04-03] MEDS: FOLIC ACID 1 MG TAB PO SCH (08:06)
[2021-04-03] MEDS ORDERED: RIFAXIMIN 200 MG TAB (NON-FORMULARY) PO SCH (09:00)
[2021-04-03] MEDS ORDERED: LEVOTHYROXINE SODIUM 125 MCG PO SCH (09:00)
[2021-04-03] MEDS ORDERED: ONDANSETRON 4 MG/2 ML (SDV) Z0FRAN IVP PRN (09:45)
[2021-04-03] MEDS: NS IV 1000 ML 1,000 ML IV SCH (10:35)
--- NOTE | 2021-04-03 12:34 | Progress Note - Hospitalist ---
LAYTON LOCKWOOD MED STUDENT 04/03/21 1234: Subjective HPI/CC On Admission Date Seen by Provider: Apr 03, 2021 Time Seen by Provider: 07:30 Hepatic encephalopathy Subjective/Events-last exam She continues to have confusion; able to identify self, disoriented to place/time. Thinks she is in [place], [place] and repeatedly states her birthday as todays date. Verbalizes need to leave the hospital and go home. She took her Lactulose last night with subsequent large bowel movement. Refused morning dose of Lactulose and has been experiencing some nausea. No complaints of chest pain, SOB, abd pain, fevers/chills. Review of Systems General: No Chills, No Night Sweats HEENT: No Head Aches, No Visual Changes Pulmonary: No Dyspnea, No Cough Cardiovascular: No: Chest Pain, Edema, Lt Headedness Gastrointestinal: Nausea; No: Vomiting, Abdominal Pain Genitourinary: No Dysuria, No Incontinence, No Hematuria Musculoskeletal: No: neck pain, shoulder pain, back pain Neurological: No: Weakness, Numbness Focused Exam Sepsis Stage: Ruled Out Reason for ruling out sepsis: / SIRS(HR), low suspicion Objective Exam Vital Signs Vital Signs Date Time Temp Pulse Resp B/P (MAP) Pulse Ox O2 Delivery O2 Flow Rate FiO2 04/03/21 11:10 36.8 94 20 121/59 (79) 96 Room Air 04/01/21 20:46 21 Capillary Refill : Less Than 3 Seconds General Appearance: No Apparent Distress, WD/WN HEENT: PERRL/EOMI, Normal ENT Inspection (edentulous maxilla) Neck: Full Range of Motion, Normal Inspection, Non Tender, Supple Respiratory: Chest Non Tender, Lungs Clear, Normal Breath Sounds, No Accessory Muscle Use, No Respiratory Distress Cardiovascular: Regular Rate, Rhythm, No Edema, No Gallop, No JVD, Normal Peripheral Pulses Gastrointestinal: Normal Bowel Sounds, Soft, Tenderness (mild diffuse tenderness throughout abd, nondistended) Rectal: Deferred Back: Normal Inspection, No CVA Tenderness, No Vertebral Tenderness Extremity: Normal Capillary Refill, Normal Inspection, Normal Range of Motion, Non Tender, No Calf Tenderness, No Pedal Edema Neurologic/Psychiatric: Alert, No Motor/Sensory Deficits, Normal Mood/Affect, Disoriented (oriented to self, disoriented to place/time) Skin: Normal Color, Warm/Dry, Other (scabs/ulcerations scattered around abd) Results/Procedures Lab Laboratory Tests 04/03/21 05:15 Patient resulted labs reviewed. Imaging: Reviewed Imaging Films, Reviewed Imaging Report Assessment/Plan Assessment and Plan Assess & Plan/Chief Complaint Hepatic encephalopathy r/t chronic liver disease Received lactulose last night with subsequent bm, but refused morning dose. Continue to reinforce need to take lactulose Continue rifaximin Reorient pt as needed Promote PO intake for bm Abdominal tenderness Abd US showed multiple gallstones and unclear acute cholecystitis; General Surgery consulted DM Sliding scale insulin CKD Maintenance fluids started Encourage PO intake Hypothyroidism Continue home regimen SARAH GARCIA DO 04/04/21 0540: Subjective Subjective/Events-last exam Patient still confused Took lactulose but now refusing again Creatinine still elevated we will start gentle IV fluids Patient very end-stage Review of Systems General: Fatigue, Malaise Neurological: Confusion Objective Exam General Appearance: No Apparent Distress, WD/WN, Chronically ill, Obese Respiratory: Lungs Clear, Normal Breath Sounds Cardiovascular: Regular Rate, Rhythm Neurologic/Psychiatric: Alert, Oriented x3, No Motor/Sensory Deficits, Normal Mood/Affect, Disoriented (oriented to self, disoriented to place/time) Assessment/Plan Assessment and Plan Assess & Plan/Chief Complaint Gentle IV fluid Lactulose Supervisory-Addendum Brief Verification & Attestation Participated in pt care: history, MDM, physical Personally performed: exam, history, MDM, supervision of care Care discussed with: Medical Student Procedures: n/a Results interpretation: Verified all documentation Verification and Attestation of Medical Student E/M Service A medical student performed and documented this service in my presence. I reviewed and verified all information documented by the medical student and made modifications to such information, when appropriate. I personally performed the physical exam and medical decision making. Sarah Garcia, Apr 04, 2021,05:39 LAYTON LOCKWOOD MED STUDENT Apr 03, 2021 12:34 SARAH GARCIA DO Apr 04, 2021 05:40
--- NOTE | 2021-04-03 16:35 | CONSULTATION REPORT ---
DATE OF SERVICE: 04/03/2021 ADMITTING PHYSICIAN: Dr. Morrell. ATTENDING PRIMARY CARE PHYSICIAN: Dr. Caral Wilson. HISTORY OF PRESENT ILLNESS: The patient is a 65-year-old female who presented to the Emergency Department with a feeling unwell, abdominal distention, confusion and incontinence. She does have a history of diabetes, hypertension, liver disease secondary to liver steatosis and related chronic kidney disease. She is currently on lactulose. She also does report pain, more on the right upper abdominal quadrant. She had an ultrasound performed, which did show liver cirrhosis as well as multiple gallstones. The ultrasound did not mention the severity of the liver cirrhosis. PAST MEDICAL HISTORY: Coronary artery disease, atrial fibrillation, hypertension, hypercholesterolemia, previous myocardial infarction, bilateral lower extremity edema, dementia, gastroesophageal reflux disease, liver failure and cirrhosis, history of gastrointestinal bleeding, diverticulosis, hemorrhoids, degenerative joint disease, diabetes, hypothyroid, anxiety, psoriasis, chronic anemia. Multiple blood transfusions; however, also does have multiple antibodies. ALLERGIES: STATINS, CEFADROXIL, SULFA, OXYCODONE. MEDICATIONS: Bumetanide 1 mg daily, folic acid 1 mg daily, detemir insulin 10 units daily, lactulose 20 grams b.i.d. p.r.n., levothyroxine 125 mcg daily, magnesium 400 mg daily, nitrofurantoin 100 mg daily, omeprazole 20 mg daily, Zofran p.r.n., rifaximin 200 mg daily, spironolactone 25 mg daily, topiramate 50 mg daily. SOCIAL HISTORY: Negative smoke, negative alcohol. FAMILY HISTORY: Mother, stroke, myocardial infarction, thyroid disease. Father oropharyngeal cancer. PAST SURGERIES: Left ankle arthroscopy, left knee arthroscopy, cardiac catheterization with stent placement x1, open coronary artery bypass grafting x4 vessels 02/16/2018, thoracentesis, tonsillectomy, port placement. VITAL SIGNS: Temperature 36.8, blood pressure 121/59, pulse 94, respirations 20, pulse ox 96% on room air. REVIEW OF SYSTEMS: Well-nourished female currently in no acute distress. She is not experiencing any shortness of breath or difficulty breathing. No chest pain, palpitations, diaphoresis. Intermittent episodes of nausea; however, no vomiting. She also does have abdominal bloating on an intermittent basis. No hematemesis, no coffee-ground emesis. She is struggling with constipation and is currently taking lactulose. No red blood per rectum, no dark tarry stools. No fever, chills, no recent inadvertent weight loss. All other review of systems negative. PHYSICAL EXAMINATION: CHEST: Few scattered rales bilaterally. HEART: Regular, no murmurs. EXTREMITIES: +1/3 bilateral lower extremity edema, negative Homans sign. HEENT: No scleral icterus. NECK: No cervical lymphadenopathy. ABDOMEN: Soft, slightly distended. There is mild discomfort in the right upper abdominal quadrant; however, not severe with no peritoneal signs. No hernias. SKIN: Warm, dry. LABORATORY DATA: WBC 4.9, hemoglobin 10.3, hematocrit 30, platelets 144, BUN 41, creatinine 2.73. Liver function enzymes are normal. ASSESSMENT AND PLAN: A 65-year-old female with a mildly intermittent symptomatic chronic calculous cholecystitis. At this time, she does have a lot of other medical comorbidities as well as liver cirrhosis detected on ultrasound; however, we do not know the degree of the liver cirrhosis. Due to her other medical problems, we will recommend conservative management for now with low fat diet as well as pain control as necessary. If she continues to have symptoms related to chronic calculous cholecystitis, we will get a noncontrast CT scan to look at the degree of liver cirrhosis as well as repeat laboratory work and if indicated and does interfere with regular life functioning, she may be a candidate for laparoscopic cholecystectomy. For now, we will recommend conservative management. Job ID: [id number] DocumentID: [id number] Dictated Date: 04/03/2021 16:08:29 Archives Technician Date: 04/03/2021 16:34:42 Dictated By: ZARI HUBBARD MD
[2021-04-03] MEDS: AZITHROMYCIN 250 MG TAB (ZITHROMAX) PO SCH (18:25)
[2021-04-03] MEDS ORDERED: RX-NITROFURANTOIN 100 MG (MACROBID) CAP PPK#2 PO SCH (21:00)
[2021-04-04] MEDS: NS IV 1000 ML 1,000 ML IV SCH (02:35)
[2021-04-04 04:43] VITALS: BP 118/57
[2021-04-04] MEDS: CATHETER FLUSH 10 ML SYR IV SCH (05:25)
[2021-04-04] MEDS: inSUlin ASPART (NovoLOG) 1 UNIT/0.01 ML (CHARGE PER UNIT) SC SCH ×2 (05:25→11:12)
[2021-04-04] MEDS: LEVOTHYROXINE 125 MCG (LEVOTHROID) TABLET PO SCH (05:26)
[2021-04-04] MEDS: PANTOPRAZOLE 20 MG TABLET (PROTONIX) PO SCH (05:26)
[2021-04-04 05:36] LABS: BASOPHILS % (AUTO) 1 % (0-10); EOSINOPHILS # (AUTO) 0.4 10^3/uL (0.0-0.3); EOSINOPHILS % (AUTO) 7 % (0-10); HEMATOCRIT 27 % (35-52); HEMOGLOBIN 9.2 g/dL (11.5-16.0); LYMPHOCYTES # (AUTO) 1.3 10^3/uL (1.0-4.0); LYMPHOCYTES % (AUTO) 24 % (12-44); MEAN CORPUSCULAR HEMOGLOBIN 31 pg (25-34); MEAN CORPUSCULAR HGB CONC 34 g/dL (32-36); MEAN CORPUSCULAR VOLUME 93 fL (80-99); MEAN PLATELET VOLUME 10.9 fL (9.0-12.2); MONOCYTES # (AUTO) 0.6 10^3/uL (0.0-1.0); MONOCYTES % (AUTO) 11 % (0-12); NEUTROPHILS # (AUTO) 3.1 10^3/uL (1.8-7.8); NEUTROPHILS % (AUTO) 58 % (42-75); PLATELET COUNT 122 10^3/uL (130-400); WHITE BLOOD COUNT 5.4 10^3/uL (4.3-11.0)
[2021-04-04 05:47] LABS: ALBUMIN 3.2 GM/DL (3.2-4.5); POTASSIUM 3.7 MMOL/L (3.6-5.0)
[2021-04-04 05:48] LABS: CALCIUM 9.3 MG/DL (8.5-10.1)
[2021-04-04 05:51] LABS: BILIRUBIN,TOTAL 0.5 MG/DL (0.1-1.0)
[2021-04-04 05:53] LABS: CREATININE SERUM 2.4 MG/DL (0.60-1.30)
[2021-04-04 07:52] VITALS: BP 121/71
[2021-04-04] MEDS: LACTULOSE SYRUP 10GM/15ML (ENULOSE) 30ML UDC PO SCH (08:26)
[2021-04-04] MEDS: RIFAXIMIN 550 MG TABLET (XIFAXAN) PO SCH (08:26)
[2021-04-04] MEDS: toPIRamate 25 MG (TOPAMAX) TAB PO SCH (08:26)
[2021-04-04] MEDS: FOLIC ACID 1 MG TAB PO SCH (08:26)
[2021-04-04] MEDS: MAGNESIUM OXIDE (MAG-OX)400 MG TAB PO SCH (08:26)
--- NOTE | 2021-04-04 09:37 | Progress Note ---
Subjective Date Seen by a Provider: Apr 04, 2021 Time Seen by a Provider: 09:20 Subjective/Events-last exam Patient seen with Dr. Hernandez. Patient denies any N/V, abdominal pain or BMs. Did report that she took her lactulose this morning. Tolerating diet. Oriented to person and place, but does not know what town and not oriented to time. Objective Exam Vital Signs Date Time Temp Pulse Resp B/P (MAP) Pulse Ox O2 Delivery O2 Flow Rate FiO2 04/04/21 07:52 35.9 96 18 121/71 (88) 95 Room Air 04/04/21 04:43 36.8 96 20 118/57 (77) 95 Room Air 04/03/21 23:53 37.0 67 20 121/53 (75) 94 Room Air 04/03/21 20:37 93 Room Air 04/03/21 20:00 Room Air 04/03/21 19:59 37.0 104 18 116/73 (87) 97 Room Air 04/03/21 16:00 36.8 98 20 110/62 (78) 98 Room Air 04/03/21 11:10 36.8 94 20 121/59 (79) 96 Room Air I & O 04/04/21 07:00 Intake Total 1133 ml Balance 1133 ml Capillary Refill : Less Than 3 Seconds General Appearance: No Apparent Distress, WD/WN Neck: Normal Inspection, Supple Respiratory: No Accessory Muscle Use, No Respiratory Distress Cardiovascular: Regular Rate, Rhythm, No Edema Gastrointestinal: normal bowel sounds, non tender, soft Extremity: Normal Inspection, Normal Range of Motion Neurologic/Psychiatric: Alert, Normal Mood/Affect, Other Skin: Normal Color, Warm/Dry Results Lab Laboratory Tests 04/03/21 10:33: Glucometer 266H 04/03/21 15:36: Glucometer 247H 04/03/21 20:48: Glucometer 232H 04/04/21 05:24: Glucometer 154H 04/04/21 05:25: White Blood Count 5.4, Red Blood Count 2.93L, Hemoglobin 9.2L, Hematocrit 27L, Mean Corpuscular Volume 93, Mean Corpuscular Hemoglobin 31, Mean Corpuscular Hemoglobin Concent 34, Red Cell Distribution Width 12.8, Platelet Count 122L, Mean Platelet Volume 10.9, Immature Granulocyte % (Auto) 0, Neutrophils (%) (Auto) 58, Lymphocytes (%) (Auto) 24, Monocytes (%) (Auto) 11, Eosinophils (%) (Auto) 7, Basophils (%) (Auto) 1, Neutrophils # (Auto) 3.1, Lymphocytes # (Auto) 1.3, Monocytes # (Auto) 0.6, Eosinophils # (Auto) 0.4H, Basophils # (Auto) 0.0, Immature Granulocyte # (Auto) 0.0, Sodium Level 137, Potassium Level 3.7, Chloride Level 107, Carbon Dioxide Level 19L, Anion Gap 11, Blood Urea Nitrogen 39H, Creatinine 2.40H, Estimat Glomerular Filtration Rate 20, BUN/Creatinine Ratio 16, Glucose Level 150H, Calcium Level 9.3, Corrected Calcium 9.9, Total Bilirubin 0.5, Aspartate Amino Transf (AST/SGOT) 16, Alanine Aminotransferase (ALT/SGPT) 12, Alkaline Phosphatase 56, Total Protein 6.0L, Albumin 3.2 Assessment/Plan Assessment/Plan Assess & Plan/Chief Complaint A 65-year-old female with a mildly intermittent symptomatic chronic calculous cholecystitis, liver cirrhosis, hepatic encephalopathy VSS Low fat diet Pain and nausea medications as needed If she continues to have symptoms related to chronic calculous cholecystitis, we will get a noncontrast CT scan to look at the degree of liver cirrhosis as well as repeat laboratory work and if indicated and does interfere with regular life functioning, she may be a candidate for laparoscopic cholecystectomy. For now, we will recommend conservative management. RICHIE LANCE APRN Apr 04, 2021 09:37
--- NOTE | 2021-04-04 11:23 | Discharge Summary ---
Discharge Summary Hospital Course Was the Problem List Reviewed?: Yes Problems/Dx: (1) Hepatic encephalopathy Hospital Course Date of Admission: Apr 01, 2021 at 18:13 Admission Diagnosis : Family Physician/Provider: Carla Wilson MD Date of Discharge: 04/04/21 Discharge Diagnosis: Hepatic encephalopathy Hospital Course: Hospital course: 04/01/21: Pt was admitted via ED for acute AMS r/t hepatic encephalopathy. She presented with confusion and elevated Ammonia and Creatinine. She was on Rifaximin therapy throughout her stay. She was prescribed Lactulose but refused to take most of her doses. She took one dose on 04/02/21 and subsequently had a bowel movement. Abd US completed for mild abd tenderness showing cirrhotic changes, multiple gallstone calculi, and unclear evidence of cholecystitis. General Surgery was consulted and recommended conservative management due to mild/intermittent symptoms. Kidney function improved with PO intake and IVF. On 04/04/21, she appears to be doing well in NAD, no complaints of pain, N/V, SOB. Mental status at her baseline. Verbalizes that she wants to go home. Cr impro ving. No complications occurred during her stay. D/C to home. LAYTON LOCKWOOD STUDENT Labs and Pending Lab Test: Laboratory Tests 04/03/21 15:36: Glucometer 247H 04/03/21 20:48: Glucometer 232H 04/04/21 05:24: Glucometer 154H 04/04/21 05:25: White Blood Count 5.4, Red Blood Count 2.93L, Hemoglobin 9.2L, Hematocrit 27L, Mean Corpuscular Volume 93, Mean Corpuscular Hemoglobin 31, Mean Corpuscular Hemoglobin Concent 34, Red Cell Distribution Width 12.8, Platelet Count 122L, Mean Platelet Volume 10.9, Immature Granulocyte % (Auto) 0, Neutrophils (%) (Auto) 58, Lymphocytes (%) (Auto) 24, Monocytes (%) (Auto) 11, Eosinophils (%) (Auto) 7, Basophils (%) (Auto) 1, Neutrophils # (Auto) 3.1, Lymphocytes # (Auto) 1.3, Monocytes # (Auto) 0.6, Eosinophils # (Auto) 0.4H, Basophils # (Auto) 0.0, Immature Granulocyte # (Auto) 0.0, Sodium Level 137, Potassium Level 3.7, Chloride Level 107, Carbon Dioxide Level 19L, Anion Gap 11, Blood Urea Nitrogen 39H, Creatinine 2.40H, Estimat Glomerular Filtration Rate 20, BUN/Creatinine Ratio 16, Glucose Level 150H, Calcium Level 9.3, Corrected Calcium 9.9, Total Bilirubin 0.5, Aspartate Amino Transf (AST/SGOT) 16, Alanine Aminotransferase (ALT/SGPT) 12, Alkaline Phosphatase 56, Total Protein 6.0L, Albumin 3.2 04/04/21 10:59: Glucometer 185H Home Meds Active Reported Omeprazole 20 Mg Capsule.dr 20 Mg PO BID LAST FILLED 10-10-2020 #180/90 DAY SUPPLY Levemir (Insulin Determir) 1,000 Units/10 Ml Soln 10 Units SC DAILY Xifaxan (Rifaximin) 200 Mg Tablet 600 Mg PO BID TAKES 3 (200MG) TABS Spironolactone 25 Mg Tablet 25 Mg PO DAILY Ondansetron HCl 4 Mg Tablet 4 Mg PO Q8H PRN Lactulose 20 Gm/30 Ml Solution 30 Ml PO BID PRN Vitamin D2 (Ergocalciferol (Vitamin D2)) 1,250 Mcg Capsule 1,250 Units PO THURSDAY Macrobid 100 mg Capsule (Nitrofurantoin Monohyd/M-Cryst) 100 Mg Capsule 1 Tab PO HS Levothyroxine (Levothyroxine Sodium) 125 Mcg Capsule 125 Mcg PO DAILY LAST FILLED 09-28-2020 #90/90 DAY SUPPLY Folic Acid 1 Mg Tablet 1 Mg PO DAILY Ondansetron HCl 4 Mg Tablet 4 Mg PO DAILY Topiramate 50 Mg Tablet 50 Mg PO BID Bumetanide 1 Mg Tablet 1 Mg PO DAILY LAST FILLED 09-28-2020 #30/30 DAY SUPPLY Magox 400 (Magnesium Oxide) 400 Mg Tablet 400 Mg PO BID Assessment/Pt Instructions [facility] in 1 week Discharge Planning: <30 minutes discharge planning Discharge Instructions Discharge Diet: No Restrictions Activity as Tolerated: Yes Discharge Physical Examination Vital Signs Vital Signs Date Time Temp Pulse Resp B/P (MAP) Pulse Ox O2 Delivery O2 Flow Rate FiO2 04/04/21 08:00 Room Air 04/04/21 07:52 35.9 96 18 121/71 (88) 95 04/01/21 20:46 21 General Appearance: No Apparent Distress, WD/WN, Chronically ill Allergies: Coded Allergies: Fayhovu-Qpk-Eiu Reductase Inhibitor (Verified Allergy, Intermediate, GI UPSET, N/V, 07/07/20) cefadroxil (Verified Allergy, Mild, 07/07/20) Sulfa (Sulfonamide Antibiotics) (Verified Allergy, Unknown, 07/07/20) oxycodone (Verified Allergy, Unknown, 07/07/20) "makes skin crawl" Discharge Summary Date of Admission Apr 01, 2021 at 18:13 Date of Discharge Discharge Date: Apr 04, 2021 Admission Diagnosis Assessment: 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
[2021-04-04 11:50] VITALS: BP 109/61
--- NOTE | 2021-04-04 12:50 | Progress Note ---
LAYTON LOCKWOOD STUDENT 04/04/21 1250: Progress Note Hospital course: 04/01/21: Pt was admitted via ED for acute AMS r/t hepatic encephalopathy. She presented with confusion and elevated Ammonia and Creatinine. She was on Rifaximin therapy throughout her stay. She was prescribed Lactulose but refused to take most of her doses. She took one dose on 04/02/21 and subsequently had a bowel movement. Abd US completed for mild abd tenderness showing cirrhotic changes, multiple gallstone calculi, and unclear evidence of cholecystitis. General Surgery was consulted and recommended conservative management due to mild/intermittent symptoms. Kidney function improved with PO intake and IVF. On 04/04/21, she appears to be doing well in NAD, no complaints of pain, N/V, SOB. Mental status at her baseline. Verbalizes that she wants to go home. Cr improving. No complications occurred during her stay. D/C to home. SARAH GARCIA DO 04/04/21 2020: Supervisory-Addendum Brief Verification & Attestation Participated in pt care: history, MDM, physical Personally performed: exam, history, MDM, supervision of care Care discussed with: Medical Student Procedures: n/a Results interpretation: Verified all documentation Verification and Attestation of Medical Student E/M Service A medical student performed and documented this service in my presence. I reviewed and verified all information documented by the medical student and made modifications to such information, when appropriate. I personally performed the physical exam and medical decision making. Sarah Garcia, Apr 04, 2021,20:20 LAYTON LOCKWOOD Apr 04, 2021 12:50 SARAH GARCIA DO Apr 04, 2021 20:20
--- NOTE | 2021-04-04 14:29 | Physical Therapy Evaluation ---
PT Evaluation-General Medical Diagnosis Admission Date Apr 01, 2021 at 18:13 Medical Diagnosis: AMS, Hepatic encephalopathy Onset Date: Apr 03, 2021 Therapy Diagnosis Therapy Diagnosis: Gait deficit, strength deficit Height/Weight Height (Feet): 5 Height (Inches): 4.00 Weight (Pounds): 196 Weight (Ounces): 5.0 Precautions Precautions/Isolations: Fall Prevention, Standard Precautions Referral Physician: Dr. Morrell Reason for Referral: Evaluation/Treatment Medical History Pertinent Medical History: Atrial Fib, CABG, CAD, DM, Dementia, Heart Failure, HTN, Hypothroidism, RI, Renal Insufficiency Social History Home: Single Level Current Living Status: Spouse Entry Into Home: Stairs With Railing PT Steps Into Home: 3 Prior Prior Level of Function SCALE: Activities may be completed with or without assistive devices. 2-Ttusogitoc-gxlmjko completes the activity by him/herself with no assistance from a helper. 5-Set-up or Clean-up Assistance-helper sets up or cleans up; patient completes activity. Boyers assists only prior to or following the activity. 4-Supervision or Touching Assistance-helper provides verbal cues and/or touching/steadying and/or contact guard assistance as patient completes activity. Assistance may be provided throughout the activity or intermittently. 3-Partial/Moderate Assistance-helper does LESS THAN HALF the effort. Boyers lifts, holds or supports trunk or limbs, but provides less than half the effort. 2-Substantial/Maximal Assistance-helper does MORE THAN HALF the effort. Boyers lifts or holds trunk or limbs and provides more than half the effort. 0-Cplztsykq-ikwxxm does ALL the effort. Patient does none of the effort to complete the activity. Or, the assistance of 2 or more helpers is required for the patient to complete the activity. If activity was not attempted, code reason: 7-Patient Refused. 9-Not Applicable-not attempted and the patient did not perform the activity b efore the current illness, exacerbation or injury. 10-Not Attempted due to Environmental Limitations-(lack of equipment, weather restraints, etc.). 88-Not Attempted due to Medical Conditions or Safety Concerns. Bed Mobility: 6 Transfers (B,C,W/C): 6 Gait: 6 Stairs: 6 Indoor Mobility (Ambulation): Independent Stairs: Independent Prior Devices Use: None PT Evaluation-Current Subjective Patient very confused. Only able to remember her name and answers "yes" to more than 90% of the questions asked. Objective Patient Orientation: Person Transfers Roll Left to Right (QC): 4 Sit to Lying (QC): 4 Lying to Sitting/Side of Bed(Q: 4 Sit to Stand (QC): 4 Chair/Kie-nv-Aawtq Xfer(QC): 4 Gait Does the Patient Walk?: Yes Mode of Locomotion: Walk Anticipated Mode of Locomotion: Walk Walk 10 feet (QC): 4 Walk 50 ft with 2 Turns(QC): 4 Walk 150 ft (QC): 4 Distance: 150 feet Gait Assistive Device: FWW Balance Sitting Static: Fair Sitting Dynamic: Fair Standing Static: Fair Standing Dynamic: Fair Assessment/Needs Patient tolerated treatment well. Demonstrates fair overall sitting and standing balance. Patient performs all observed bed mobility and transfers with CGA and verbal cues for safety. Patient ambulates 150 feet with FWW, with CGA and verbal cues for safety, posture, progression, balance and conservation of energy. Patient in chair post treatment with all needs met, nursing notified, call light in hand and GRAPHITE GRINDER in room. Rehab Potential: Fair PT Medical Billing Manager Goals Medical Billing Manager Goals PT Medical Billing Manager Goals Time Frame: May 08, 2021 Roll Left & Right (QC): 6 Sit to Lying (QC): 6 Lying-Sitting on Side/Bed(QC): 6 Sit to Stand (QC): 6 Chair/Vrr-tr-Ttcbw Xfer(QC): 6 Toilet Transfer (QC): 6 Does the Patient Walk: Yes Walk 50ft with 2 Turns (QC): 6 Walk 150 ft (QC): 6 Walking 10ft on Uneven Surface: 6 1 Step (curb) (QC): 6 4 Steps (QC): 6 PT Plan Problem List Problem List: Activity Tolerance, Functional Strength, Safety, Balance, Gait, Transfer, Bed Mobility, ROM Treatment/Plan Treatment Plan: Continue Plan of Care Treatment Plan: Bed Mobility, Education, Functional Activity Tamy, Functional Strength, Gait, Safety, Therapeutic Exercise, Transfers Treatment Duration: May 08, 2021 Frequency: 6 times per week Estimated Hrs Per Day: .25 hour per day Safety Risks/Education Patient Education: Gait Training Teaching Recipient: Patient Teaching Methods: Demonstration, Discussion Response to Teaching: Reinforcement Needed Time/GCodes Time In: 1017 Time Out: 1032 Total Billed Treatment Time: 15 Total Billed Treatment Visit, Eval low TOCCI,JONNA PT Apr 04, 2021 14:29
[2021-04-08] MEDS ORDERED: VITAMIN D2 1.25 MG (50,000 UNITS) CAP PO SCH (09:00)
== END 2021-04-04 13:55 | disposition home or self-care (01) | DRG 442 ==
LOC: EDUNIT# 16:47 → ER 16:48 → 4TH 18:13
PROVIDERS: ADMIT Internal Medicine; ATTEND Internal Medicine
DX: K72.90 Hepatic failure, unspecified without coma (principal); I13.0 Hypertensive heart and chronic kidney disease with heart failure and stage 1 through stage 4 chronic kidney disease, or unspecified chronic kidney disease; N17.9 Acute kidney failure, unspecified; K80.10 Calculus of gallbladder with chronic cholecystitis without obstruction; K74.60 Unspecified cirrhosis of liver; E11.22 Type 2 diabetes mellitus with diabetic chronic kidney disease; N18.9 Chronic kidney disease, unspecified; E03.9 Hypothyroidism, unspecified; K21.9 Gastro-esophageal reflux disease without esophagitis; Z79.4 Long term (current) use of insulin; Z79.890 Hormone replacement therapy; Z79.899 Other long term (current) drug therapy; Z95.1 Presence of aortocoronary bypass graft; Z95.5 Presence of coronary angioplasty implant and graft; I50.9 Heart failure, unspecified; I25.10 Atherosclerotic heart disease of native coronary artery without angina pectoris; I25.2 Old myocardial infarction; E78.00 Pure hypercholesterolemia, unspecified; K57.90 Diverticulosis of intestine, part unspecified, without perforation or abscess without bleeding; M19.90 Unspecified osteoarthritis, unspecified site; G89.29 Other chronic pain; M54.9 Dorsalgia, unspecified; F41.9 Anxiety disorder, unspecified; L40.9 Psoriasis, unspecified; F03.90 Unspecified dementia, unspecified severity, without behavioral disturbance, psychotic disturbance, mood disturbance, and anxiety; I48.0 Paroxysmal atrial fibrillation; K31.819 Angiodysplasia of stomach and duodenum without bleeding; K75.81 Nonalcoholic steatohepatitis (NASH); Z88.2 Allergy status to sulfonamides; Z88.5 Allergy status to narcotic agent
CPT/HCPCS: 36415; 71045; 76705; 80053; 81000; 82140; 82150; 82947; 83690; 85025; 85610; 85730

== ENCOUNTER 2021-05-14 12:24 | Outpatient (RCR) | payer MEDICARE ==
[2021-03-01 13:56] LABS: BASOPHILS # (AUTO) 0.1 10^3/uL (0.0-0.1); BASOPHILS % (AUTO) 1 % (0-10); EOSINOPHILS # (AUTO) 0.4 10^3/uL (0.0-0.3); EOSINOPHILS % (AUTO) 7 % (0-10); HEMATOCRIT 33 % (35-52); HEMOGLOBIN 11.1 g/dL (11.5-16.0); LYMPHOCYTES % (AUTO) 18 % (12-44); MEAN CORPUSCULAR HEMOGLOBIN 32 pg (25-34); MEAN CORPUSCULAR HGB CONC 34 g/dL (32-36); MEAN CORPUSCULAR VOLUME 95 fL (80-99); MEAN PLATELET VOLUME 10.5 fL (9.0-12.2); MONOCYTES # (AUTO) 0.5 10^3/uL (0.0-1.0); MONOCYTES % (AUTO) 8 % (0-12); NEUTROPHILS # (AUTO) 3.9 10^3/uL (1.8-7.8); NEUTROPHILS % (AUTO) 67 % (42-75); PLATELET COUNT 172 10^3/uL (130-400); WHITE BLOOD COUNT 5.9 10^3/uL (4.3-11.0)
[2021-04-25 15:07] LABS: BASOPHILS % (AUTO) 1 % (0-10); EOSINOPHILS # (AUTO) 0.3 10^3/uL (0.0-0.3); EOSINOPHILS % (AUTO) 7 % (0-10); HEMATOCRIT 31 % (35-52); HEMOGLOBIN 10.6 g/dL (11.5-16.0); LYMPHOCYTES # (AUTO) 0.9 10^3/uL (1.0-4.0); LYMPHOCYTES % (AUTO) 21 % (12-44); MEAN CORPUSCULAR HEMOGLOBIN 32 pg (25-34); MEAN CORPUSCULAR HGB CONC 34 g/dL (32-36); MEAN CORPUSCULAR VOLUME 93 fL (80-99); MEAN PLATELET VOLUME 10.7 fL (9.0-12.2); MONOCYTES # (AUTO) 0.4 10^3/uL (0.0-1.0); MONOCYTES % (AUTO) 9 % (0-12); NEUTROPHILS # (AUTO) 2.6 10^3/uL (1.8-7.8); NEUTROPHILS % (AUTO) 62 % (42-75); PLATELET COUNT 156 10^3/uL (130-400); WHITE BLOOD COUNT 4.2 10^3/uL (4.3-11.0)
[2021-04-25 16:27] LABS: ALBUMIN 3.9 GM/DL (3.2-4.5); BILIRUBIN,TOTAL 0.6 MG/DL (0.1-1.0); CALCIUM 9.9 MG/DL (8.5-10.1); CREATININE SERUM 2.82 MG/DL (0.60-1.30); POTASSIUM 3.9 MMOL/L (3.6-5.0); TOTAL PROTEIN 7.5 GM/DL (6.4-8.2)
[~2021-05-14 12:24] MED LIST changes: +FERRIC CARBOXYMALTOSE (CANCER) 750 MG in NS (IVPB) CANCER CENTER 250 ML IV SCH; +INSU100V5 SC; -MAGN400T8 PO; +MGX400T PO; +OMEP20CA18 PO; +ONDA-106 PO; -ONDA8TAB15 PO; +SPIR25TA5 PO; +TIZA-186 PO; -TIZA4TAB4 PO
== END 2021-05-30 | disposition home or self-care (01) ==
LOC: ONC 12:24
PROVIDERS: ATTEND Internal Medicine Hematology & Oncology
DX: D50.0 Iron deficiency anemia secondary to blood loss (chronic) (principal); E03.9 Hypothyroidism, unspecified; K74.60 Unspecified cirrhosis of liver; K76.6 Portal hypertension; R16.1 Splenomegaly, not elsewhere classified; I10 Essential (primary) hypertension; E11.9 Type 2 diabetes mellitus without complications; E78.5 Hyperlipidemia, unspecified; E66.9 Obesity, unspecified; Z79.899 Other long term (current) drug therapy; Z80.0 Family history of malignant neoplasm of digestive organs; Z68.33 Body mass index [BMI] 33.0-33.9, adult
CPT/HCPCS: 36591; 80053; 82728; 84443; 85025; 96365

== ENCOUNTER 2021-06-26 13:20 | Outpatient (RCR) | payer MEDICARE ==
[~2021-06-26 13:20] MED LIST changes: +CLOB10TA17 PO; -CLOB10TA3 PO; -FERRIC CARBOXYMALTOSE (CANCER) 750 MG in NS (IVPB) CANCER CENTER 250 ML IV SCH
[2021-06-26 13:45] LABS: BASOPHILS # (AUTO) 0.1 10^3/uL (0.0-0.1); BASOPHILS % (AUTO) 1 % (0-10); EOSINOPHILS # (AUTO) 0.4 10^3/uL (0.0-0.3); EOSINOPHILS % (AUTO) 7 % (0-10); HEMATOCRIT 36 % (35-52); HEMOGLOBIN 11.8 g/dL (11.5-16.0); LYMPHOCYTES # (AUTO) 1.3 10^3/uL (1.0-4.0); LYMPHOCYTES % (AUTO) 20 % (12-44); MEAN CORPUSCULAR HEMOGLOBIN 32 pg (25-34); MEAN CORPUSCULAR HGB CONC 33 g/dL (32-36); MEAN CORPUSCULAR VOLUME 97 fL (80-99); MEAN PLATELET VOLUME 10.1 fL (9.0-12.2); MONOCYTES # (AUTO) 0.5 10^3/uL (0.0-1.0); MONOCYTES % (AUTO) 8 % (0-12); NEUTROPHILS % (AUTO) 64 % (42-75); PLATELET COUNT 206 10^3/uL (130-400); WHITE BLOOD COUNT 6.2 10^3/uL (4.3-11.0)
== END 2021-07-15 | disposition home or self-care (01) ==
LOC: ONC 13:20
PROVIDERS: ATTEND Internal Medicine Hematology & Oncology
DX: Z45.2 Encounter for adjustment and management of vascular access device (principal); D50.0 Iron deficiency anemia secondary to blood loss (chronic); E03.9 Hypothyroidism, unspecified; K74.60 Unspecified cirrhosis of liver; K76.6 Portal hypertension; E78.5 Hyperlipidemia, unspecified; E11.22 Type 2 diabetes mellitus with diabetic chronic kidney disease; I13.0 Hypertensive heart and chronic kidney disease with heart failure and stage 1 through stage 4 chronic kidney disease, or unspecified chronic kidney disease; N18.4 Chronic kidney disease, stage 4 (severe); I50.32 Chronic diastolic (congestive) heart failure; E66.9 Obesity, unspecified; R16.1 Splenomegaly, not elsewhere classified; Z79.899 Other long term (current) drug therapy; Z80.0 Family history of malignant neoplasm of digestive organs; Z68.33 Body mass index [BMI] 33.0-33.9, adult
CPT/HCPCS: 36591; 82728; 85025

== ENCOUNTER 2021-07-19 15:57 | Inpatient (IN) | payer MEDICARE ==
[~2021-07-19] VITALS: Ht 167.7 cm; Wt 79.4 kg
[2021-07-19] MEDS ORDERED: NS IV 1000 ML 1,000 ML IV SCH (16:15)
[2021-07-19 16:23] LABS: BASOPHILS # (AUTO) 0.1 10^3/uL (0.0-0.1); BASOPHILS % (AUTO) 1 % (0-10); EOSINOPHILS # (AUTO) 0.2 10^3/uL (0.0-0.3); EOSINOPHILS % (AUTO) 3 % (0-10); HEMATOCRIT 35 % (35-52); HEMOGLOBIN 11.7 g/dL (11.5-16.0); LYMPHOCYTES # (AUTO) 0.5 10^3/uL (1.0-4.0); LYMPHOCYTES % (AUTO) 9 % (12-44); MEAN CORPUSCULAR HEMOGLOBIN 32 pg (25-34); MEAN CORPUSCULAR HGB CONC 34 g/dL (32-36); MEAN CORPUSCULAR VOLUME 94 fL (80-99); MEAN PLATELET VOLUME 10.9 fL (9.0-12.2); MONOCYTES # (AUTO) 0.4 10^3/uL (0.0-1.0); MONOCYTES % (AUTO) 7 % (0-12); NEUTROPHILS # (AUTO) 4.7 10^3/uL (1.8-7.8); NEUTROPHILS % (AUTO) 80 % (42-75); PLATELET COUNT 136 10^3/uL (130-400); WHITE BLOOD COUNT 5.8 10^3/uL (4.3-11.0)
[2021-07-19 16:31] LABS: ABG BASE EXCESS -3.1 MMOL/L (-2.5-2.5); ABG OXYGEN SATURATION 96 % (94-100); ABG PCO2 35 MMHG (35-45); ABG PO2 68 MMHG (79-93); ABG TCO2 22.1 MMOL/L (21.0-31.0)
[2021-07-19 16:35] LABS: ALBUMIN 3.9 GM/DL (3.2-4.5); POTASSIUM 3.9 MMOL/L (3.6-5.0)
[2021-07-19 16:36] LABS: CALCIUM 9.6 MG/DL (8.5-10.1)
[2021-07-19 16:37] LABS: TOTAL PROTEIN 7.3 GM/DL (6.4-8.2)
[2021-07-19 16:39] LABS: BILIRUBIN,TOTAL 0.7 MG/DL (0.1-1.0)
[2021-07-19 16:41] LABS: CREATININE SERUM 2.52 MG/DL (0.60-1.30); INR 1.1 (0.8-1.4); PROTHROMBIN TIME PATIENT 14.3 SEC (12.2-14.7)
[2021-07-19 16:44] LABS: ALLENS TEST YES-POS; INSPIRED O2 0; VENTILATOR NO
[2021-07-19 16:55] LABS: BILIRUBIN,URINE NEGATIVE (NEGATIVE); CLARITY,URINE SL CLOUDY; COLOR,URINE YELLOW; GLUCOSE, URINE (UA) TRACE (NEGATIVE); KETONES,URINE NEGATIVE (NEGATIVE); LEUKOCYTE ESTERASE ,URINE NEGATIVE (NEGATIVE); NITRITE,URINE NEGATIVE (NEGATIVE); PROTEIN,URINE NEGATIVE (NEGATIVE)
--- NOTE | 2021-07-19 17:06 | ED General ---
General Chief Complaint: Altered Mental Status Stated Complaint: SHAKING EPISODE Nursing Triage Note: PT TO ROOM 07 [facility]IA [facility] WITH C/O DECREASED LOC AND GENERALIZED WEAKNESS Source of Information: Patient Exam Limitations: No Limitations History of Present Illness Date Seen by Provider: Jul 19, 2021 Time Seen by Provider: 15:58 Initial Comments Patient to the ER by EMS from home with chief complaint of altered mental status. She has a history of gave, hepatic encephalopathy. She is awake and answers to her name and answers all other questions no. No diarrhea fevers chills cough shortness of air. She is not having any pain or nausea. She denies dysuria however is a difficult historian. She is insulin-dependent diabetic with a blood glucose of 370 according to EMS. Heart rate is elevated but there is no white count tachypnea or other septic/SIRS criteria. Her creatinine is at baseline 2.5. She is on rifaximin and lactulose with unclear history whether she is actually taking them. Allergies and Home Medications Allergies Coded Allergies: Ooispov-Oep-Gyv Reductase Inhibitor (Verified Allergy, Intermediate, GI UPSET, N/V, 07/07/20) cefadroxil (Verified Allergy, Mild, 07/07/20) Sulfa (Sulfonamide Antibiotics) (Verified Allergy, Unknown, 07/07/20) oxycodone (Verified Allergy, Unknown, 07/07/20) "makes skin crawl" Patient Home Medication List Home Medication List Reviewed: Yes Bumetanide (Bumetanide) 1 Mg Tablet, 1 MG PO DAILY, (Reported) Entered as Reported by: AMY TORRES on 07/26/19 1148 Ergocalciferol (Vitamin D2) (Vitamin D2) 1,250 Mcg Capsule, 1,250 UNITS PO THURSDAY, (Reported) Entered as Reported by: TOMASA CARMONA on 06/18/20 1102 Folic Acid (Folic Acid) 1 Mg Tablet, 1 MG PO DAILY, (Reported) Entered as Reported by: TOMASA CARMONA on 06/18/20 1058 Insulin Determir (Levemir) 1,000 Units/10 Ml Soln, 10 UNITS SC DAILY, (Reported) Entered as Reported by: NITHIN KRUSE on 04/02/21 1247 Lactulose (Lactulose) 20 Gm/30 Ml Solution, 30 ML PO BID PRN for CONSTIPATION- 3RD LINE, (Reported) Entered as Reported by: ENMA MELENDREZ on 07/09/20 0849 Levothyroxine Sodium (Levothyroxine) 125 Mcg Capsule, 125 MCG PO DAILY, (Reported) Entered as Reported by: TOMASA CARMONA on 06/18/20 1059 Magnesium Oxide (Magox 400) 400 Mg Tablet, 400 MG PO BID, (Reported) Entered as Reported by: AMY TORRES on 11/03/18 1153 Omeprazole (Omeprazole) 20 Mg Capsule.dr, 20 MG PO BID, (Reported) Entered as Reported by: NITHIN KRUSE on 04/02/21 1247 Ondansetron HCl (Ondansetron HCl) 4 Mg Tablet, 4 MG PO DAILY, (Reported) Entered as Reported by: NITHIN KRUSE on 06/14/20 1726 Ondansetron HCl (Ondansetron HCl) 4 Mg Tablet, 4 MG PO Q8H PRN for NAUSEA/VOMITING-1ST LINE, (Reported) Entered as Reported by: NITHIN KRUSE on 04/02/21 1247 Rifaximin (Xifaxan) 200 Mg Tablet, 600 MG PO BID, (Reported) Entered as Reported by: NITHIN KRUSE on 04/02/21 1247 Topiramate (Topiramate) 50 Mg Tablet, 50 MG PO BID, (Reported) Entered as Reported by: NITHIN KRUSE on 06/14/20 1726 Review of Systems Review of Systems Constitutional: No chills, No diaphoresis EENTM: No ear discharge, No hearing loss Respiratory: No cough, No short of breath Cardiovascular: No chest pain, No palpitations Gastrointestinal: No abdominal pain, No nausea, No vomiting Genitourinary: No discharge, No dysuria All Other Systems Reviewed Negative Unless Noted: Yes Past Xrhjvqz-Vpkdkb-Qcslie Hx Patient Social History Tobacco Use?: No Smoking Status: Never a Smoker Smokeless Tobacco Frequency: Never a User Use of E-Cig and/or Vaping dev: No Use of E-Cig and/or Vaping Bernardo: Never a User Substance use?: No Alcohol Use?: No Pt feels they are or have been: No Immunizations Up To Date Tetanus Booster (TDap): Unknown PED Vaccines UTD: Yes First/Initial COVID19 Vaccinat: YES Second COVID19 Vaccination Garry: YES Third COVID19 Vaccination Date: YES Seasonal Allergies Seasonal Allergies: Yes Past Medical History Surgery/Hospitalization HX: PMH: LIVER FAILURE Surgeries: Yes (PORT RIGHT CHEST) Adenoidectomy, Cardiac, CABG, Coronary Stent, Open Heart Surgery, Orthopedic, Tonsillectomy, Tubal Ligation Respiratory: Yes (LEFT PLEURAL EFFUSION-S/P THORACENTESIS; RESP FAILURE) Pneumonia, Sleep Apnea Currently Using CPAP: No Currently Using BIPAP: No Cardiac: Yes (CHF, STENT X1; CABG 02/16/2018 x 4 @ [facility];NSTEMI X 3) High Cholesterol, Hypertension Neurological: Yes (CHRONIC BASELINE CONFUSION;HEPATIC ENCEPHALOPATHY-MULT EPISODES) Dementia Reproductive Disorders: No Female 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 LI [place] DZ/ELEV AMMONIA) Cirrhosis Musculoskeletal: Yes (POOR AMBULATION--USES WALKER SINCE CABG; L ANKLE AND KNEE SURGERIES) Degenerate Disk Disease, Arthritis, Chronic Back Pain, Fractures Endocrine: Yes (OBESITY) Diabetes, Insulin dep, Hypothyroidsim HEENT: No Loss of Vision: Denies Hearing Impairment: Denies Cancer: No Psychosocial: Yes Anxiety Integumentary: Yes Psoriasis Blood Disorders: Yes (CHRONIC ANEMIA-GI LOSS/GAVE SYNDROME; MULT T RANSFUSIONS/MULT ANTIBODIES) Adverse Reaction/Blood Tranf: Yes (Antibody JKA) Family Medical History Arthritis G8 BROTHER Completed stroke 19 MOTHER FH: anemia 19 MOTHER FH: lupus G8 SISTER FH: throat cancer 19 FATHER Hypertension G8 SISTER Myocardial infarction 19 MOTHER Thyroid disease 19 MOTHER G8 SISTER Hypertension, Stroke, Other Conditions/Hx PSH: -LEFT ANKLE SURGERY -LEFT KNEE SURGERY -CARDIAC CATHS--STENT X 1 -4 VESSEL CABG AT [facility] 02/16/18 -THORACENTESIS -TONSILLECTOMY/ADENOIDECTOMY -BTL -PORT RIGHT CHEST -LEXISCAN STRESS TEST 03/08/20--NORMAL. EF 70% Physical Exam Vital Signs Vital Signs - First Documented 07/19/21 15:58 Temp 36.2 Pulse 96 Resp 16 B/P (MAP) 124/51 (75) O2 Delivery Room Air Capillary Refill : Less Than 3 Seconds Height, Weight, BMI Height: 5'4.00" Weight: 196lbs. 5.0oz. 89.307525fr; 28.00 BMI Method:Stated General Appearance: Chronically ill, Obese Eyes: Bilateral Eye Normal Inspection, Bilateral Eye PERRL, Bilateral Eye EOMI HEENT: PERRL/EOMI, TMs Normal, Normal ENT Inspection, Pharynx Normal; No Moist Mucous Membranes Neck: Full Range of Motion, Normal Inspection, Non Tender, Supple Respiratory: Lungs Clear, Normal Breath Sounds, No Accessory Muscle Use, No Respiratory Distress Cardiovascular: Regular Rate, Rhythm, No Edema, Normal Peripheral Pulses Gastrointestinal: Normal Bowel Sounds, No Organomegaly Extremity: Normal Capillary Refill, Normal Inspection, Normal Range of Motion, No Pedal Edema Neurologic/Psychiatric: Alert, No Motor/Sensory Deficits, Other (Oriented to self) Skin: Normal Color, Warm/Dry Procedures/Interventions Date of ETT Placement: May 30, 2018 Time of ETT Placement: 1330 Progress/Results/Core Measures Suspected Sepsis SIRS Temperature: Pulse: 96 Respiratory Rate: 16 Laboratory Tests 07/19/21 16:09: White Blood Count 5.8 Blood Pressure 124 /51 Mean: 75 Laboratory Tests 07/19/21 16:09: Creatinine 2.52H, INR Comment 1.1, Platelet Count 136, Total Bilirubin 0.7 Results/Orders Lab Results Laboratory Tests Test 07/19/21 16:09 07/19/21 16:20 07/19/21 16:25 07/19/21 16:50 Range/Units White Blood Count 5.8 4.3-11.0 10^3/uL Red Blood Count 3.69 L 3.80-5.11 10^6/uL Hemoglobin 11.7 11.5-16.0 g/dL Hematocrit 35 35-52 % Mean Corpuscular Volume 94 80-99 fL Mean Corpuscular Hemoglobin 32 25-34 pg Mean Corpuscular Hemoglobin Concent 34 32-36 g/dL Red Cell Distribution Width 13.2 10.0-14.5 % Platelet Count 136 130-400 10^3/uL Mean Platelet Volume 10.9 9.0-12.2 fL Immature Granulocyte % (Auto) 0 % Neutrophils (%) (Auto) 80 H 42-75 % Lymphocytes (%) (Auto) 9 L 12-44 % Monocytes (%) (Auto) 7 0-12 % Eosinophils (%) (Auto) 3 0-10 % Basophils (%) (Auto) 1 0-10 % Neutrophils # (Auto) 4.7 1.8-7.8 10^3/uL Lymphocytes # (Auto) 0.5 L 1.0-4.0 10^3/uL Monocytes # (Auto) 0.4 0.0-1.0 10^3/uL Eosinophils # (Auto) 0.2 0.0-0.3 10^3/uL Basophils # (Auto) 0.1 0.0-0.1 10^3/uL Immature Granulocyte # (Auto) 0.0 0.0-0.1 10^3/uL Prothrombin Time 14.3 12.2-14.7 SEC INR Comment 1.1 0.8-1.4 Sodium Level 140 135-145 MMOL/L Potassium Level 3.9 3.6-5.0 MMOL/L Chloride Level 108 H 98-107 MMOL/L Carbon Dioxide Level 19 L 21-32 MMOL/L Anion Gap 13 5-14 MMOL/L Blood Urea Nitrogen 38 H 7-18 MG/DL Creatinine 2.52 H 0.60-1.30 MG/DL Estimat Glomerular Filtration Rate 21 BUN/Creatinine Ratio 15 Glucose Level 288 H 70-105 MG/DL Calcium Level 9.6 8.5-10.1 MG/DL Corrected Calcium 9.7 8.5-10.1 MG/DL Total Bilirubin 0.7 0.1-1.0 MG/DL Aspartate Amino Transf (AST/SGOT) 15 5-34 U/L Alanine Aminotransferase (ALT/SGPT) 14 0-55 U/L Alkaline Phosphatase 80 40-136 U/L C-Reactive Protein High Sensitivity 0.08 0.00-0.50 MG/DL Total Protein 7.3 6.4-8.2 GM/DL Albumin 3.9 3.2-4.5 GM/DL Blood Gas Puncture Site LEFT RADIAL Blood Gas Patient Temperature 37.0 Arterial Blood pH 7.40 7.37-7.43 Arterial Blood Partial Pressure CO2 35 35-45 MMHG Arterial Blood Partial Pressure O2 68 L 79-93 MMHG Arterial Blood HCO3 21 L 23-27 MMOL/L Arterial Blood Total CO2 22.1 21.0-31.0 MMOL/L Arterial Blood Oxygen Saturation 96 94-100 % Arterial Blood Base Excess -3.1 L -2.5-2.5 MMOL/L Osvaldo Test YES-POS Blood Gas Ventilator Setting NO Blood Gas Inspired Oxygen 0 Ammonia 92 H 11-32 UMOL/L Urine Color YELLOW Urine Clarity SL CLOUDY Urine pH 8.0 5-9 Urine Specific Rougon 1.015 L 1.016-1.022 Urine Protein NEGATIVE NEGATIVE Urine Glucose (UA) TRACE H NEGATIVE Urine Ketones NEGATIVE NEGATIVE Urine Nitrite NEGATIVE NEGATIVE Urine Bilirubin NEGATIVE NEGATIVE Urine Urobilinogen 0.2 < = 1.0 MG/DL Urine Leukocyte Esterase NEGATIVE NEGATIVE Urine RBC (Auto) NEGATIVE NEGATIVE Urine RBC NONE /HPF Urine WBC RARE /HPF Urine Squamous Epithelial Cells RARE /HPF Urine Crystals NONE /LPF Urine Bacteria LARGE H /HPF Urine Casts NONE /LPF Urine Mucus NEGATIVE /LPF Urine Culture Indicated YES My Orders Orders - HUSSAIN MOULTON Ed Iv/Invasive Line Start (07/19/21 16:04) Ns Iv 1000 Ml (Sodium Chloride 0.9%) (07/19/21 16:15) Comprehensive Metabolic Panel (07/19/21 16:04) Hs C Reactive Protein (07/19/21 16:04) Ua Culture If Indicated (07/19/21 16:04) Arterial Blood Gas (07/19/21 16:04) Cbc With Automated Diff (07/19/21 16:09) Protime With Inr (07/19/21 16:09) Ammonia (07/19/21 16:09) Urine Culture (07/19/21 16:50) Vital Signs/I&O 07/19/21 15:58 Temp 36.2 Pulse 96 Resp 16 B/P (MAP) 124/51 (75) O2 Delivery Room Air Capillary Refill : Less Than 3 Seconds Blood Pressure Mean: 75 Progress Note : Time: 17:03 Progress Note ammonia level, ABG. ABG demonstrates may be a little mild hypoxemia but no acid-base disturbance. Ammonia level 92. She will need admitted for lactulose and rifaximin. Departure Communication (Admissions) Time/Spoke to Admitting Phy: 17:25 Discussed the case with Dr. Jung and he agrees to accept the patient to the floor and resume his rifaximin and lactulose. Impression Primary Impression: Hepatic encephalopathy Disposition: ADMITTED INPATIENT Condition: Stable Admissions Decision to Admit Reason: Admit from ER (General) Decision to Admit/Date: Jul 19, 2021 Time/Decision to Admit Time: 17:25 Departure-Patient Inst. Referrals: JAMES TORRES MD (PCP/Family) Primary Care Physician HUSSAIN MOULTON Jul 19, 2021 17:06
[2021-07-19 17:12] LABS: WBC,URINE RARE /HPF
[2021-07-19 17:13] LABS: BACTERIA,URINE LARGE /HPF; SQUAMOUS EPITHELIAL CELL,UR RARE /HPF
[2021-07-19] MEDS: NS IV 1000 ML 1,000 ML IV SCH (18:50)
[2021-07-19 19:00] VITALS: BP 128/79
[2021-07-19] MEDS ORDERED: IBUPROFEN 600 MG (MOTRIN) TAB PO PRN (19:00)
[2021-07-19] MEDS ORDERED: ONDANSETRON 4 MG/2 ML (SDV) Z0FRAN IVP PRN (19:00)
[2021-07-19] MEDS: RIFAXIMIN 550 MG TABLET (XIFAXAN) PO SCH (20:57)
[2021-07-19] MEDS: LACTULOSE SYRUP 10GM/15ML (ENULOSE) 30ML UDC PO SCH (20:57)
[2021-07-19] MEDS: inSUlin ASPART (NovoLOG) 1 UNIT/0.01 ML (CHARGE PER UNIT) SC SCH (21:17)
[2021-07-19 23:25] VITALS: BP 116/64
[2021-07-20] MEDS: NS IV 1000 ML 1,000 ML IV SCH ×3 (01:25→15:20)
[2021-07-20 03:56] VITALS: BP 119/73
[2021-07-20 06:15] LABS: BASOPHILS % (AUTO) 1 % (0-10); EOSINOPHILS # (AUTO) 0.2 10^3/uL (0.0-0.3); EOSINOPHILS % (AUTO) 6 % (0-10); HEMATOCRIT 29 % (35-52); HEMOGLOBIN 9.9 g/dL (11.5-16.0); LYMPHOCYTES # (AUTO) 1.2 10^3/uL (1.0-4.0); LYMPHOCYTES % (AUTO) 28 % (12-44); MEAN CORPUSCULAR HEMOGLOBIN 32 pg (25-34); MEAN CORPUSCULAR HGB CONC 34 g/dL (32-36); MEAN CORPUSCULAR VOLUME 94 fL (80-99); MEAN PLATELET VOLUME 10.6 fL (9.0-12.2); MONOCYTES # (AUTO) 0.5 10^3/uL (0.0-1.0); MONOCYTES % (AUTO) 11 % (0-12); NEUTROPHILS # (AUTO) 2.3 10^3/uL (1.8-7.8); NEUTROPHILS % (AUTO) 54 % (42-75); PLATELET COUNT 110 10^3/uL (130-400); WHITE BLOOD COUNT 4.3 10^3/uL (4.3-11.0)
[2021-07-20 06:24] LABS: POTASSIUM 3.7 MMOL/L (3.6-5.0)
[2021-07-20 06:29] LABS: CREATININE SERUM 1.94 MG/DL (0.60-1.30)
[2021-07-20] MEDS: inSUlin ASPART (NovoLOG) 1 UNIT/0.01 ML (CHARGE PER UNIT) SC SCH ×4 (06:35→20:43)
[2021-07-20 07:40] VITALS: BP 123/59
[2021-07-20] MEDS: RIFAXIMIN 550 MG TABLET (XIFAXAN) PO SCH ×2 (07:48→20:42)
[2021-07-20] MEDS: LACTULOSE SYRUP 10GM/15ML (ENULOSE) 30ML UDC PO SCH ×4 (07:48→20:42)
--- NOTE | 2021-07-20 09:31 | History & Physical-Hospitalist ---
History of Present Illness HPI/Chief Complaint Patient to the ER by EMS from home with chief complaint of altered mental status. She has a history of gave, hepatic encephalopathy. She is awake and answers to her name and answers all other questions no. No diarrhea fevers chills cough shortness of air. She is not having any pain or nausea. She denies dysuria however is a difficult historian. She is insulin-dependent diabetic with a blood glucose of 370 according to EMS. Heart rate is elevated but there is no white count tachypnea or other septic/SIRS criteria. Her creatinine is at baseline 2.5. She is on rifaximin and lactulose with unclear history whether she is actually taking them. Patient awake and alert upon arrival denies pain nausea or shortness of breath. Reports she has had 1 bowel movement denies melena or bright red blood per rectum. Date Seen 07/20/21 Time Seen by a Provider: 09:25 Attending Physician Tonie Crawford MD PCP Carla Wilson MD Referring Physician Date of Admission Jul 19, 2021 at 17:35 Home Medications & Allergies Home Medications Reviewed patient Home Medication Reconciliation performed by pharmacy medication reconciliations advanced manufacturing technician and/or nursing. Patients Allergies have been reviewed. Allergies Allergies Coded Allergies Yehydpn-PWO-BkX Reductase Inhibitor (Verified Allergy, Intermediate, GI UPSET, N/V, 07/07/20) cefadroxil (Verified Allergy, Mild, 07/07/20) Sulfa (Sulfonamide Antibiotics) (Verified Allergy, Unknown, 07/07/20) oxycodone (Verified Allergy, Unknown, 07/07/20) "makes skin crawl" Past Sobgtnd-Lmusud-Qxrtzz Hx Patient Social History Tobacco Use?: No Smoking Status: Never a Smoker Smokeless Tobacco Frequency: Never a User Use of E-Cig and/or Vaping dev: No Use of E-Cig and/or Vaping Bernardo: Never a User Substance use?: No Alcohol Use?: No Pt feels they are or have been: No Immunizations Up To Date Date of Influenza Vaccine: Mar 22, 2021 First/Initial COVID19 Vaccinat: YES Second COVID19 Vaccination Garry: YES Tetanus Booster (TDap): Unknown Hepatitis A: Yes Hepatitis B: Yes PED Vaccines UTD: Yes Date of Pneumonia Vaccine: May 16, 2019 Seasonal Allergies Seasonal Allergies: Yes Current Status Advance Directives: No Communicates: Gestures Primary Language: Iranian Preferred Spoken Language: Iranian Is interpretation needed?: No Implanted or Applied Medical D: None Past Medical History Surgeries: Adenoidectomy, Cardiac, CABG, Coronary Stent, Open Heart Surgery, O rthopedic, Tonsillectomy, Tubal Ligation Pneumonia, Sleep Apnea Currently Using CPAP: No Currently Using BIPAP: No High Cholesterol, Hypertension Dementia 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 Sexually Transmitted Disease: No HIV/AIDS: No Bladder Infection, Renal Failure Cirrhosis Degenerate Disk Disease, Arthritis, Chronic Back Pain, Fractures Diabetes, Insulin dep, Hypothyroidsim Loss of Vision: Denies Hearing Impairment: Denies Anxiety Psoriasis Blood Disorders: Yes (CHRONIC ANEMIA-GI LOSS/GAVE SYNDROME; MULT TRANSFUSIONS/MULT ANTIBODIES) Adverse Reaction/Blood Tranf: Yes (Antibody JKA) PMHx: Paroxysmal Atrial fibrillation Gastric antral vascular ectasia (GAVE) CAD NIDDM Chronic Microcytic anemia, transfusion dependent HTN HLD CHF CKD [place] (Nstemi x3) s/p CABG Hypothyroidism Anxiety Disorder Family Medical History Arthritis G8 BROTHER Completed stroke 19 MOTHER FH: anemia 19 MOTHER FH: lupus G8 SISTER FH: throat cancer 19 FATHER Hypertension G8 SISTER Myocardial infarction 19 MOTHER Thyroid disease 19 MOTHER G8 SISTER Hypertension, Stroke, Other Conditions/Hx PSH: -LEFT ANKLE SURGERY -LEFT KNEE SURGERY -CARDIAC CATHS--STENT X 1 -4 VESSEL CABG AT [facility] 02/16/18 -THORACENTESIS -TONSILLECTOMY/ADENOIDECTOMY -BTL -PORT RIGHT CHEST -LEXISCAN STRESS TEST 03/08/20--NORMAL. EF 70% Review of Systems Constitutional: see HPI Physical Exam Physical Exam Vital Signs Vital Signs - First Documented 07/19/21 07/19/21 15:58 18:02 Temp 36.2 Pulse 96 Resp 16 B/P (MAP) 124/51 (75) Pulse Ox 97 O2 Delivery Room Air Capillary Refill : Less Than 3 Seconds Height, Weight, BMI Height: 5'4.00" Weight: 196lbs. 5.0oz. 89.037545mh; 28.23 BMI Method:Stated General Appearance: No Apparent Distress, Chronically ill Neck: Full Range of Motion, Non Tender Respiratory: Chest Non Tender, Lungs Clear, Normal Breath Sounds, No Accessory Muscle Use, No Respiratory Distress Cardiovascular: Regular Rate, Rhythm, No Edema, No Gallop, No JVD, No Murmur, Normal Peripheral Pulses Gastrointestinal: Normal Bowel Sounds, No Organomegaly, Non Tender, Soft Extremity: Other (Trace edema) Results Results/Procedures Labs Laboratory Tests 07/19/21 16:09 07/20/21 06:03 Patient resulted labs reviewed. Assessment/Plan Admission Diagnosis 1. History of chronic liver disease with multiple similar episodes of hepatic encephalopathy likely aggravated by medication noncompliance. There is been improvement overnight likely due to rehydration and possibly due to the resumption of Xifaxan and lactulose. She has been noncompliant with lactulose in the past due to diarrhea we did discuss trying to find a happy medium may be reduced dose of lactulose in addition to continuing Xifaxan which discussed was really having no adverse side effects or contributing in any way. 2. Acute kidney injury on top of chronic renal disease likely aggravated by dehydration and #1 this is improved overnight with IV fluids will continue for now. Possible discharge tomorrow if improvement continues and patient is stable on her feet. No evidence for underlying infection. Admission Status: Observation TONIE CRAWFORD MD Jul 20, 2021 09:30
[2021-07-20 11:12] VITALS: BP 134/62
[2021-07-20 17:00] VITALS: BP 131/80
[2021-07-20 20:31] VITALS: BP 141/69
[2021-07-21 00:47] VITALS: BP 144/65
[2021-07-21] MEDS: NS IV 1000 ML 1,000 ML IV SCH ×3 (01:34→11:54)
[2021-07-21 04:16] VITALS: BP 127/57
[2021-07-21] MEDS: inSUlin ASPART (NovoLOG) 1 UNIT/0.01 ML (CHARGE PER UNIT) SC SCH ×2 (05:40→11:52)
[2021-07-21 07:27] VITALS: BP 118/55
[2021-07-21] MEDS: RIFAXIMIN 550 MG TABLET (XIFAXAN) PO SCH (09:08)
[2021-07-21] MEDS: LACTULOSE SYRUP 10GM/15ML (ENULOSE) 30ML UDC PO SCH ×3 (09:08→13:27)
[2021-07-21 11:08] VITALS: BP 130/60
--- NOTE | 2021-07-21 12:46 | Discharge Summary ---
Diagnosis/Chief Complaint Date of Admission Jul 19, 2021 at 17:35 Date of Discharge Discharge Date: Jul 21, 2021 Admission Diagnosis 1. History of chronic liver disease with multiple similar episodes of hepatic encephalopathy likely aggravated by medication noncompliance. There is been improvement overnight likely due to rehydration and possibly due to the resumption of Xifaxan and lactulose. She has been noncompliant with lactulose in the past due to diarrhea we did discuss trying to find a happy medium may be reduced dose of lactulose in addition to continuing Xifaxan which discussed was really having no adverse side effects or contributing in any way. 2. Acute kidney injury on top of chronic renal disease likely aggravated by dehydration and #1 this is improved overnight with IV fluids will continue for now. Possible discharge tomorrow if improvement continues and patient is stable on her feet. No evidence for underlying infection. Primary Care Carla Wilson MD Discharge Summary Discharge Physical Exam Allergies: Coded Allergies: Tgkptnj-MYO-XlJ Reductase Inhibitor (Verified Allergy, Intermediate, GI UPSET, N/V, 07/07/20) cefadroxil (Verified Allergy, Mild, 07/07/20) Sulfa (Sulfonamide Antibiotics) (Verified Allergy, Unknown, 07/07/20) oxycodone (Verified Allergy, Unknown, 07/07/20) "makes skin crawl" Vitals & I&Os Vital Signs Date Time Temp Pulse Resp B/P (MAP) Pulse Ox O2 Delivery O2 Flow Rate FiO2 07/21/21 11:08 36.5 76 20 130/60 (83) 96 Room Air General Appearance: No Apparent Distress Respiratory: Chest Non Tender, Lungs Clear, Normal Breath Sounds, No Accessory Muscle Use, No Respiratory Distress Cardiovascular: Regular Rate, Rhythm, No Edema, No Gallop, No JVD, No Murmur, Normal Peripheral Pulses Gastrointestinal: Normal Bowel Sounds, No Organomegaly, No Pulsatile Mass, Non Tender, Soft Neurologic/Psychiatric: Alert, Oriented x3 Hospital Course Was the Problem List Reviewed?: Yes This is 1 of multiple admissions for this patient for altered mental status due to hepatic encephalopathy. She was apparently brought in by family members noted that her ammonia level was over 90 with findings compatible with hepatic encephalopathy. She has not been taking lactulose because her current dose causes diarrhea and probably had not been taking Xifaxan as well. She appears to be slightly dehydrated. IV fluids were initiated and Xifaxan as well as lactulose were resumed. This did result in some diarrhea without evidence for melena. By the morning of the sixth the patient was back to being alert and oriented x3 ambulating independently with stability. She had several loose stools. Discussed the importance of medication compliance with a goal of having 2 loose stools per day. Will decrease lactulose to 10 mg twice daily and continue Xifaxan. She was advised to follow-up at [facility] the next week or 2. Labs (last 24 hrs) Laboratory Tests 07/20/21 16:31: Glucometer 206H 07/21/21 05:35: Glucometer 124H 07/21/21 10:54: Glucometer 164H Microbiology 07/19/21 Urine Culture - Preliminary, Resulted Probable Enterococcus Species Patient resulted labs reviewed. Pending Labs Laboratory Tests 07/21/21 05:35: Glucometer 124 07/21/21 10:54: Glucometer 164 Discussion & Recommendations Discharge Planning: <30 minutes discharge planning Discharge Home Medications: Active Scripts Active Reported Omeprazole 20 Mg Capsule.dr 20 Mg PO BID LAST FILLED 10-10-2020 #180/90 DAY SUPPLY Levemir (Insulin Determir) 1,000 Units/10 Ml Soln 10 Units SC DAILY Xifaxan (Rifaximin) 200 Mg Tablet 600 Mg PO BID TAKES 3 (200MG) TABS Ondansetron HCl 4 Mg Tablet 4 Mg PO Q8H PRN Lactulose 20 Gm/30 Ml Solution 30 Ml PO BID PRN Vitamin D2 (Ergocalciferol (Vitamin D2)) 1,250 Mcg Capsule 1,250 Units PO THURSDAY Levothyroxine (Levothyroxine Sodium) 125 Mcg Capsule 125 Mcg PO DAILY LAST FILLED 09-28-2020 #90/90 DAY SUPPLY Folic Acid 1 Mg Tablet 1 Mg PO DAILY Ondansetron HCl 4 Mg Tablet 4 Mg PO DAILY Topiramate 50 Mg Tablet 50 Mg PO BID Bumetanide 1 Mg Tablet 1 Mg PO DAILY LAST FILLED 09-28-2020 #30/30 DAY SUPPLY Magox 400 (Magnesium Oxide) 400 Mg Tablet 400 Mg PO BID Instructions to patient/family Please see electronic discharge instructions given to patient. TONIE CRAWFORD MD Jul 21, 2021 12:46
== END 2021-07-21 15:50 | disposition home or self-care (01) | DRG 442 ==
LOC: EDUNIT# 15:57 → ER 16:01 → 4TH 17:35
PROVIDERS: ADMIT Internal Medicine; ATTEND Internal Medicine
DX: K72.90 Hepatic failure, unspecified without coma (principal); N17.9 Acute kidney failure, unspecified; I13.0 Hypertensive heart and chronic kidney disease with heart failure and stage 1 through stage 4 chronic kidney disease, or unspecified chronic kidney disease; E11.22 Type 2 diabetes mellitus with diabetic chronic kidney disease; N18.9 Chronic kidney disease, unspecified; E86.0 Dehydration; K31.819 Angiodysplasia of stomach and duodenum without bleeding; I50.9 Heart failure, unspecified; E78.00 Pure hypercholesterolemia, unspecified; F03.90 Unspecified dementia, unspecified severity, without behavioral disturbance, psychotic disturbance, mood disturbance, and anxiety; E03.9 Hypothyroidism, unspecified; F41.9 Anxiety disorder, unspecified; I48.0 Paroxysmal atrial fibrillation; I25.10 Atherosclerotic heart disease of native coronary artery without angina pectoris; E78.5 Hyperlipidemia, unspecified; D50.9 Iron deficiency anemia, unspecified; K74.60 Unspecified cirrhosis of liver; R09.02 Hypoxemia; E66.9 Obesity, unspecified; Z68.28 Body mass index [BMI] 28.0-28.9, adult; I25.2 Old myocardial infarction; Z88.2 Allergy status to sulfonamides; Z79.4 Long term (current) use of insulin; Z88.5 Allergy status to narcotic agent; Z88.8 Allergy status to other drugs, medicaments and biological substances; Z95.1 Presence of aortocoronary bypass graft; Z95.5 Presence of coronary angioplasty implant and graft; Z79.890 Hormone replacement therapy; Z79.899 Other long term (current) drug therapy; Z91.14 Patient's other noncompliance with medication regimen
CPT/HCPCS: 36415; 80048; 80053; 81000; 82140; 82805; 82947; 85025; 85610; 86141; 87077; 87088

== ENCOUNTER 2021-08-18 16:32 | Inpatient (IN) | payer MEDICARE ==
[~2021-08-18] VITALS: Ht 160 cm; Wt 90.7 kg
[2021-08-18 17:11] LABS: BASOPHILS % (AUTO) 1 % (0-10); EOSINOPHILS # (AUTO) 0.3 10^3/uL (0.0-0.3); EOSINOPHILS % (AUTO) 5 % (0-10); HEMATOCRIT 37 % (35-52); HEMOGLOBIN 12.5 g/dL (11.5-16.0); LYMPHOCYTES % (AUTO) 19 % (12-44); MEAN CORPUSCULAR HEMOGLOBIN 32 pg (25-34); MEAN CORPUSCULAR HGB CONC 34 g/dL (32-36); MEAN CORPUSCULAR VOLUME 93 fL (80-99); MEAN PLATELET VOLUME 10.6 fL (9.0-12.2); MONOCYTES # (AUTO) 0.4 10^3/uL (0.0-1.0); MONOCYTES % (AUTO) 7 % (0-12); NEUTROPHILS # (AUTO) 3.7 10^3/uL (1.8-7.8); NEUTROPHILS % (AUTO) 68 % (42-75); PLATELET COUNT 168 10^3/uL (130-400); WHITE BLOOD COUNT 5.5 10^3/uL (4.3-11.0)
[2021-08-18 17:22] LABS: POTASSIUM 4.1 MMOL/L (3.6-5.0)
[2021-08-18 17:23] LABS: CALCIUM 10.3 MG/DL (8.5-10.1); INR 1.1 (0.8-1.4); PROTHROMBIN TIME PATIENT 14.9 SEC (12.2-14.7)
[2021-08-18 17:24] LABS: TOTAL PROTEIN 7.6 GM/DL (6.4-8.2)
[2021-08-18 17:26] LABS: BILIRUBIN,TOTAL 0.8 MG/DL (0.1-1.0)
[2021-08-18 17:28] LABS: CREATININE SERUM 2.78 MG/DL (0.60-1.30)
[2021-08-18 17:31] LABS: MAGNESIUM 2.3 MG/DL (1.6-2.4)
[2021-08-18 17:42] LABS: BILIRUBIN,URINE NEGATIVE (NEGATIVE); CLARITY,URINE CLEAR; COLOR,URINE YELLOW; GLUCOSE, URINE (UA) NEGATIVE (NEGATIVE); KETONES,URINE NEGATIVE (NEGATIVE); LEUKOCYTE ESTERASE ,URINE NEGATIVE (NEGATIVE); NITRITE,URINE NEGATIVE (NEGATIVE); PH,URINE 7.5 (5-9); PROTEIN,URINE NEGATIVE (NEGATIVE)
[2021-08-18 17:49] LABS: BACTERIA,URINE NEGATIVE /HPF; HYALINE CASTS, URINE 0-2 /LPF; SQUAMOUS EPITHELIAL CELL,UR RARE /HPF
[2021-08-18] MEDS ORDERED: NS IV 1000 ML 1,000 ML IV SCH (18:15)
--- NOTE | 2021-08-18 18:23 | ED General ---
General Chief Complaint: Altered Mental Status Stated Complaint: CONFUSED/NOT EATING/NOT TALKING Nursing Triage Note: ARRIVED VIA WC WITH DAUGHTER. PT STATES SHE IS MORE CONFUSED THEN NORMAL AND IS NOT WALKING WITH HER WALKER LIKE SHE USUALLY DOES. PT STATES SHE IS WORSE TODAY. Source of Information: Old Records, Other (DAUGHTER) History of Present Illness Date Seen by Provider: Aug 18, 2021 Time Seen by Provider: 18:00 Initial Comments PT ARRIVED VIA POV FROM HOME WITH DAUGHTER PRIOR TO MY ARRIVAL PT LIVES AT HOME WITH , WHO IS WHEELCHAIR-BOUND DAUGHTER REPORTS THAT PT HAS BEEN SOMNOLENT AND MORE CONFUSED THAN NORMAL FOR AT LEAST THE LAST 2-3 DAYS PT HAS NOT BEEN ABLE TO WALK / HAS NOT BEEN OUT OF BED FOR AT LEAST THAT LONG NO OTHER SYMPTOMS, PER DAUGHTER NO FEVER NO COUGH OR SHORTNESS OF BREATH NO VOMITING OR DIARRHEA PT WITH LONG HISTORY OF HEPATIC ENCEPHALOPATHY AND CURRENT SYMPTOMS ARE THE SAME PRIOR EPISODES PT WITH MULTIPLE ADMITS FOR SAME--LAST ADMIT WAS 4 WEEKS AGO FOR SAME PT WITH LONG HISTORY OF NON-COMPLIANCE ON ALL ASPECTS OF CARE PCP: DR. TORRES/ [facility] Allergies and Home Medications Allergies Coded Allergies: Uvqfsmd-WEQ-FcU Reductase Inhibitor (Verified Allergy, Intermediate, GI UPSET, N/V, 07/07/20) cefadroxil (Verified Allergy, Mild, 07/07/20) Sulfa (Sulfonamide Antibiotics) (Verified Allergy, Unknown, 07/07/20) oxycodone (Verified Allergy, Unknown, 07/07/20) "makes skin crawl" Patient Home Medication List Home Medication List Reviewed: Yes Bumetanide (Bumetanide) 1 Mg Tablet, 1 MG PO DAILY, (Reported) Entered as Reported by: AMY TORRES on 07/26/19 1148 Ergocalciferol (Vitamin D2) (Vitamin D2) 1,250 Mcg Capsule, 1,250 UNITS PO THURSDAY, (Reported) Entered as Reported by: TOMASA CARMONA on 06/18/20 1102 Folic Acid (Folic Acid) 1 Mg Tablet, 1 MG PO DAILY, (Reported) Entered as Reported by: TOMASA CARMONA on 06/18/20 1058 Insulin Determir (Levemir) 1,000 Units/10 Ml Soln, 10 UNITS SC DAILY, (Reported) Entered as Reported by: NITHIN KRUSE on 04/02/21 1247 Lactulose (Lactulose) 20 Gm/30 Ml Solution, 30 ML PO BID PRN for CONSTIPATION- 3RD LINE, (Reported) Entered as Reported by: ENMA MELENDREZ on 07/09/20 0849 Levothyroxine Sodium (Levothyroxine) 125 Mcg Capsule, 125 MCG PO DAILY, (Reported) Entered as Reported by: TOMASA CARMONA on 06/18/20 1059 Magnesium Oxide (Magox 400) 400 Mg Tablet, 400 MG PO BID, (Reported) Entered as Reported by: AMY TORRES on 11/03/18 1153 Omeprazole (Omeprazole) 20 Mg Capsule.dr, 20 MG PO BID, (Reported) Entered as Reported by: NITHIN KRUSE on 04/02/21 1247 Ondansetron HCl (Ondansetron HCl) 4 Mg Tablet, 4 MG PO DAILY, (Reported) Entered as Reported by: NITHIN KRUSE on 06/14/20 1726 Ondansetron HCl (Ondansetron HCl) 4 Mg Tablet, 4 MG PO Q8H PRN for NAUSEA/VOMITING-1ST LINE, (Reported) Entered as Reported by: NITHIN KRUSE on 04/02/21 1247 Rifaximin (Xifaxan) 200 Mg Tablet, 600 MG PO BID, (Reported) Entered as Reported by: NITHIN KRUSE on 04/02/21 1247 Topiramate (Topiramate) 50 Mg Tablet, 50 MG PO BID, (Reported) Entered as Reported by: NITHIN KRUSE on 06/14/20 1726 Review of Systems Review of Systems Constitutional: other (PT UNABLE TO ANSWER) Past Hsliqxq-Uuozks-Uroxml Hx Patient Social History Tobacco Use?: Yes Tobacco type used: Cigarettes Smoking Status: Former Smoker Substance use?: No Alcohol Use?: No Immunizations Up To Date Tetanus Booster (TDap): Unknown PED Vaccines UTD: Yes First/Initial COVID19 Vaccinat: YES Second COVID19 Vaccination Garry: UNKNOWN Third COVID19 Vaccination Date: YES COVID19 Vaccine Telecommunications Analyst: UNKNOEN Seasonal Allergies Seasonal Allergies: Yes Past Medical History Surgery/Hospitalization HX: PMH: LIVER FAILURE Surgeries: Yes (PORT RIGHT CHEST) Adenoidectomy, Cardiac, CABG, Coronary Stent, Open Heart Surgery, Orthopedic, Tonsillectomy, Tubal Ligation Respiratory: Yes (LEFT PLEURAL EFFUSION-S/P THORACENTESIS; RESP FAILURE) Pneumonia, Sleep Apnea Currently Using CPAP: No Currently Using BIPAP: No Cardiac: Yes (CHF, STENT X1; CABG 02/16/2018 x 4 @ [facility];NSTEMI X 3) Coronary Artery Disease, High Cholesterol, Hypertension Neurological: Yes (CHRONIC BASELINE CONFUSION;HEPATIC ENCEPHALOPATHY-MULT EPISODES) Dementia Reproductive Disorders: No Female Reproductive Disorders: Denies ASSIGNMENT MANAGER History: Menopausal Sexually Transmitted Disease: No HIV/AIDS: No Genitourinary: Yes Bladder Infection, Renal Failure Gastrointestinal: Yes (GAVE-GASTRIC ANTRAL VASCULAR ECTASIA;GASTRITIS;CHR. LIVER DZ/ELEV AMMONIA) Liver Disease/Jaundice, Cirrhosis Musculoskeletal: Yes (POOR AMBULATION--USES WALKER SINCE CABG; L ANKLE AND KNEE SURGERIES) Degenerate Disk Disease, Arthritis, Chronic Back Pain, Fractures Endocrine: Yes (OBESITY) Diabetes, Insulin dep, Hypothyroidsim HEENT: No Loss of Vision: Denies Hearing Impairment: Denies Cancer: No Psychosocial: Yes Anxiety Integumentary: Yes Psoriasis Blood Disorders: Yes (CHRONIC ANEMIA-GI LOSS/GAVE SYNDROME; MULT TRANSFUSIONS/MULT ANTIBODIES) Adverse Reaction/Blood Tranf: Yes (Antibody JKA) Family Medical History Arthritis G8 BROTHER Completed stroke 19 MOTHER FH: anemia 19 MOTHER FH: lupus G8 SISTER FH: throat cancer 19 FATHER Hypertension G8 SISTER Myocardial infarction 19 MOTHER Thyroid disease 19 MOTHER G8 SISTER Hypertension, Stroke, Other Conditions/Hx PSH: -LEFT ANKLE SURGERY -LEFT KNEE SURGERY -CARDIAC CATHS--STENT X 1 -4 VESSEL CABG AT [facility] 02/16/18 -THORACENTESIS -TONSILLECTOMY/ADENOIDECTOMY -BTL -PORT RIGHT CHEST -LEXISCAN STRESS TEST 03/08/20--NORMAL. EF 70% Physical Exam Vital Signs Vital Signs - First Documented 08/18/21 16:50 Temp 36.3 Pulse 98 Resp 16 B/P (MAP) 141/108 (119) Pulse Ox 96 O2 Delivery Room Air Capillary Refill : Less Than 3 Seconds Height, Weight, BMI Height: 5'4.00" Weight: 196lbs. 5.0oz. 89.817714li; 35.00 BMI Method:Stated General Appearance: Other (PT VERY SOMNOLENT, BUT ROUSES TO PAINFUL AND TACTILE STIMULI, BUT IS NOT TALKING OR FOLLOWING COMMANDS. RESPIRATIONS EVEN AND UNLABORED) HEENT: PERRL/EOMI, Other (ORAL MUCOSA MOIST) Neck: Normal Inspection Respiratory: Normal Breath Sounds, No Accessory Muscle Use, No Respiratory Distress Cardiovascular: Regular Rate, Rhythm, No Murmur Gastrointestinal: Soft Neurologic/Psychiatric: Other (MENTATION NOTED ABOVE) Skin: Normal Color, Warm/Dry Procedures/Interventions Date of ETT Placement: May 30, 2018 Time of ETT Placement: 1330 Progress/Results/Core Measures Suspected Sepsis SIRS Temperature: Pulse: 98 Respiratory Rate: 16 Laboratory Tests 08/18/21 17:05: White Blood Count 5.5 Blood Pressure 141 /108 Mean: 119 Laboratory Tests 08/18/21 17:05: Creatinine 2.78H, INR Comment 1.1, Platelet Count 168, Total Bilirubin 0.8 Results/Orders Lab Results Laboratory Tests Test 08/18/21 17:05 08/18/21 17:35 08/18/21 18:05 Range/Units White Blood Count 5.5 4.3-11.0 10^3/uL Red Blood Count 3.96 3.80-5.11 10^6/uL Hemoglobin 12.5 11.5-16.0 g/dL Hematocrit 37 35-52 % Mean Corpuscular Volume 93 80-99 fL Mean Corpuscular Hemoglobin 32 25-34 pg Mean Corpuscular Hemoglobin Concent 34 32-36 g/dL Red Cell Distribution Width 12.8 10.0-14.5 % Platelet Count 168 130-400 10^3/uL Mean Platelet Volume 10.6 9.0-12.2 fL Immature Granulocyte % (Auto) 0 % Neutrophils (%) (Auto) 68 42-75 % Lymphocytes (%) (Auto) 19 12-44 % Monocytes (%) (Auto) 7 0-12 % Eosinophils (%) (Auto) 5 0-10 % Basophils (%) (Auto) 1 0-10 % Neutrophils # (Auto) 3.7 1.8-7.8 10^3/uL Lymphocytes # (Auto) 1.0 1.0-4.0 10^3/uL Monocytes # (Auto) 0.4 0.0-1.0 10^3/uL Eosinophils # (Auto) 0.3 0.0-0.3 10^3/uL Basophils # (Auto) 0.0 0.0-0.1 10^3/uL Immature Granulocyte # (Auto) 0.0 0.0-0.1 10^3/uL Prothrombin Time 14.9 H 12.2-14.7 SEC INR Comment 1.1 0.8-1.4 Sodium Level 141 135-145 MMOL/L Potassium Level 4.1 3.6-5.0 MMOL/L Chloride Level 108 H 98-107 MMOL/L Carbon Dioxide Level 19 L 21-32 MMOL/L Anion Gap 14 5-14 MMOL/L Blood Urea Nitrogen 40 H 7-18 MG/DL Creatinine 2.78 H 0.60-1.30 MG/DL Estimat Glomerular Filtration Rate 18 BUN/Creatinine Ratio 14 Glucose Level 239 H 70-105 MG/DL Calcium Level 10.3 H 8.5-10.1 MG/DL Corrected Calcium 10.3 H 8.5-10.1 MG/DL Magnesium Level 2.3 1.6-2.4 MG/DL Total Bilirubin 0.8 0.1-1.0 MG/DL Aspartate Amino Transf (AST/SGOT) 17 5-34 U/L Alanine Aminotransferase (ALT/SGPT) 11 0-55 U/L Alkaline Phosphatase 77 40-136 U/L Ammonia 110 H 11-32 UMOL/L Total Protein 7.6 6.4-8.2 GM/DL Albumin 4.0 3.2-4.5 GM/DL Serum Alcohol < 10 <10 MG/DL Urine Color YELLOW Urine Clarity CLEAR Urine pH 7.5 5-9 Urine Specific [place] 1.010 L 1.016-1.022 Urine Protein NEGATIVE NEGATIVE Urine Glucose (UA) NEGATIVE NEGATIVE Urine Ketones NEGATIVE NEGATIVE Urine Nitrite NEGATIVE NEGATIVE Urine Bilirubin NEGATIVE NEGATIVE Urine Urobilinogen 0.2 < = 1.0 MG/DL Urine Leukocyte Esterase NEGATIVE NEGATIVE Urine RBC (Auto) NEGATIVE NEGATIVE Urine RBC NONE /HPF Urine WBC NONE /HPF Urine Squamous Epithelial Cells RARE /HPF Urine Crystals NONE /LPF Urine Bacteria NEGATIVE /HPF Urine Casts PRESENT /LPF Urine Hyaline Casts 0-2 H /LPF Urine Mucus NEGATIVE /LPF Urine Culture Indicated NO Urine Opiates Screen NEGATIVE NEGATIVE Urine Oxycodone Screen NEGATIVE NEGATIVE Urine Methadone Screen NEGATIVE NEGATIVE Urine Propoxyphene Screen NEGATIVE NEGATIVE Urine Barbiturates Screen NEGATIVE NEGATIVE Ur Tricyclic Antidepressants Screen NEGATIVE NEGATIVE Urine Phencyclidine Screen NEGATIVE NEGATIVE Urine Amphetamines Screen NEGATIVE NEGATIVE Urine Methamphetamines Screen NEGATIVE NEGATIVE Urine Benzodiazepines Screen NEGATIVE NEGATIVE Urine Cocaine Screen NEGATIVE NEGATIVE Urine Cannabinoids Screen NEGATIVE NEGATIVE Influenza Type A (RT-PCR) Not Detected Not Detecte Influenza Type B (RT-PCR) Not Detected Not Detecte SARS-CoV-2 RNA (RT-PCR) Not Detected Not Detecte My Orders Orders - JOSR GILLIS DO Alcohol (08/18/21 17:58) Drug Screen Stat (Urine) (08/18/21 17:58) Covid 19 Inhouse Test (08/18/21 17:58) Influenza A And B By Pcr (08/18/21 17:58) Isolation Central Supply Req (08/18/21 17:58) Chest 1 View, Ap/Pa Only (08/18/21 18:03) Ed Iv/Invasive Line Start (08/18/21 18:11) Ns Iv 1000 Ml (Sodium Chloride 0.9%) (08/18/21 18:15) Ed Admission (Communication) (08/18/21 18:13) Vital Signs/I&O 08/18/21 16:50 Temp 36.3 Pulse 98 Resp 16 B/P (MAP) 141/108 (119) Pulse Ox 96 O2 Delivery Room Air Capillary Refill : Less Than 3 Seconds Blood Pressure Mean: 119 Progress Note : Progress Note NO DETERIORATION IN PT'S CONDITION DURING ER STAY VITALS STABLE, O2 SATS IN UPPER 90'S ON ROOM AIR Diagnostic Imaging Comments CXR--PER RADIOLOGIST REPORT AT 1846 FINDINGS: Overall heart size and pulmonary vascularity are within normal limits. Density in the left lung base is again identified which may represent chronic atelectasis or scarring. Otherwise, there is no pneumothorax, consolidation or definite pleural fluid. Surgical findings are again noted in the mediastinum. IMPRESSION: Chronic left basilar pulmonary density without acute abnormality or significant change. Reviewed: Reviewed by Me Departure Communication (Admissions) Family Conversation SPOKE WITH PT'S DAUGHTER, SHE STATES THAT PT IS TO BE A FULL CODE. DID DISCUSS WITH DAUGHTER THAT SHE MAY NEED LONG-TERM PLACEMENT OR HOSPICE CARE, THIS IS A RECURRING PROBLEM AND PT IS CHRONICALLY NON-COMPLIANT WITH ALL ASPECTS OF CARE. 1806--SPOKE WITH DR. GARCIA, ACCEPTS PT FOR ADMIT. SHE WILL DO ADMIT ORDERS. Impression Primary Impression: Hepatic encephalopathy Additional Impressions: Acute kidney injury superimposed on chronic kidney disease Hyperammonemia Diabetes mellitus, insulin dependent (IDDM), uncontrolled Non-compliance HX OF CAD WITH CABG AND STENT GAVE (gastric antral vascular ectasia) Disposition: ADMITTED INPATIENT Condition: Stable/Unchanged Admissions Decision to Admit Reason: Admit from ER (General) Decision to Admit/Date: Aug 18, 2021 Time/Decision to Admit Time: 18:07 Departure-Patient Inst. Referrals: JAMES TORRES MD (PCP/Family) Primary Care Physician JOSR GILLIS DO Aug 18, 2021 18:23
[2021-08-18 18:28] LABS: AMPHETAMINE SCREEN, URINE NEGATIVE (NEGATIVE); BARBITURATE SCREEN URINE NEGATIVE (NEGATIVE); BENZODIAZEPINES SCREEN URINE NEGATIVE (NEGATIVE); CANNABINOID SCREEN, URINE NEGATIVE (NEGATIVE); COCAINE SCREEN URINE NEGATIVE (NEGATIVE); METHADONE STAT NEGATIVE (NEGATIVE); METHAMPHETAMINE SCREEN URINE S NEGATIVE (NEGATIVE); OPIATE SCREEN URINE NEGATIVE (NEGATIVE); OXYCODONE STAT NEGATIVE (NEGATIVE); PROPOXYPHENE STAT NEGATIVE (NEGATIVE); TRICYCLIC ANTIDEPRESSANTS SCRE NEGATIVE (NEGATIVE)
--- NOTE | 2021-08-18 18:38 | Diagnostic Imaging Report ---
INDICATION: Altered mental status. EXAMINATION: Portable AP upright view of the chest was obtained. COMPARISON: Study of 04/01/2021. FINDINGS: Overall heart size and pulmonary vascularity are within normal limits. Density in the left lung base is again identified which may represent chronic atelectasis or scarring. Otherwise, there is no pneumothorax, consolidation or definite pleural fluid. Surgical findings are again noted in the mediastinum. IMPRESSION: Chronic left basilar pulmonary density without acute abnormality or significant change. Dictated by: Dictated on workstation # [id number]
[2021-08-18 20:00] VITALS: BP 131/83
[2021-08-18] MEDS ORDERED: CALCIUM CARBONATE 500 MG (TUMS) TAB.CHEW PO PRN ×2 (20:00→21:00)
[2021-08-18] MEDS ORDERED: MILK OF MAGNESIA 400 MG/5 ML 30 ML UDC PO PRN (20:00)
[2021-08-18] MEDS ORDERED: diphenhydrAMINE 25 MG TAB (BENADRYL) PO PRN (20:00)
[2021-08-18] MEDS ORDERED: ANTACID SUSP 30 ML UDC (MYLANTA) PO PRN (20:00)
[2021-08-18] MEDS ORDERED: polyethylene glycoL POWDER 17 GM (MIRALAX) PACK PO PRN (20:00)
[2021-08-18] MEDS ORDERED: PATIENT MAY USE OWN MEDS, ALL PO SCH (20:00)
[2021-08-18] MEDS ORDERED: ONDANSETRON 4 MG (ZOFRAN) ORAL DISSOLVE TAB PO PRN (20:00)
[2021-08-18] MEDS ORDERED: ACETAMINOPHEN 325 MG TABLET PO PRN (20:00)
[2021-08-18] MEDS ORDERED: diphenhydrAMINE 50 MG/ML INJ (BENADRYL) IVP PRN (20:00)
[2021-08-18] MEDS ORDERED: ONDANSETRON 4 MG/2 ML (SDV) Z0FRAN IV PRN (20:00)
[2021-08-18] MEDS ORDERED: BISACODYL 10 MG SUPP (DULCOLAX) PR PRN (20:00)
[2021-08-18] MEDS ORDERED: MELATONIN 3 MG TABLET PO PRN (20:00)
[2021-08-18 20:40] VITALS: BP 141/108
[2021-08-18] MEDS ORDERED: RT-ALBUTEROL/IPRATROPIUM 3 ML (DUONEB) VIAL INH PRN (20:45)
[2021-08-18] MEDS: SENNOSIDES 8.6 MG (SENOKOT) TAB PO SCH (21:24)
[2021-08-18] MEDS: DOCUSATE SODIUM 100 MG (COLACE) CAP PO SCH (21:24)
[2021-08-18] MEDS: LACTULOSE SYRUP 10GM/15ML (ENULOSE) 30ML UDC PO SCH (21:24)
[2021-08-18] MEDS: NS IV 1000 ML 1,000 ML IV SCH (21:24)
[2021-08-18] MEDS: inSUlin ASPART (NovoLOG) 1 UNIT/0.01 ML (CHARGE PER UNIT) SC SCH (21:29)
[2021-08-18 23:53] VITALS: BP 157/81
[2021-08-19] MEDS ORDERED: HALOPERIDOL 5 MG/ML (HALDOL) VIAL IM PRN (01:30)
[2021-08-19 04:05] VITALS: BP 118/78
[2021-08-19 05:39] LABS: BASOPHILS # (AUTO) 0.1 10^3/uL (0.0-0.1); BASOPHILS % (AUTO) 1 % (0-10); EOSINOPHILS # (AUTO) 0.3 10^3/uL (0.0-0.3); EOSINOPHILS % (AUTO) 7 % (0-10); HEMATOCRIT 33 % (35-52); HEMOGLOBIN 11.2 g/dL (11.5-16.0); LYMPHOCYTES # (AUTO) 1.2 10^3/uL (1.0-4.0); LYMPHOCYTES % (AUTO) 26 % (12-44); MEAN CORPUSCULAR HEMOGLOBIN 32 pg (25-34); MEAN CORPUSCULAR HGB CONC 34 g/dL (32-36); MEAN CORPUSCULAR VOLUME 94 fL (80-99); MEAN PLATELET VOLUME 10.9 fL (9.0-12.2); MONOCYTES # (AUTO) 0.5 10^3/uL (0.0-1.0); MONOCYTES % (AUTO) 10 % (0-12); NEUTROPHILS # (AUTO) 2.5 10^3/uL (1.8-7.8); NEUTROPHILS % (AUTO) 55 % (42-75); PLATELET COUNT 140 10^3/uL (130-400); WHITE BLOOD COUNT 4.6 10^3/uL (4.3-11.0)
[2021-08-19] MEDS: inSUlin ASPART (NovoLOG) 1 UNIT/0.01 ML (CHARGE PER UNIT) SC SCH ×4 (05:42→20:58)
[2021-08-19 05:52] LABS: ALBUMIN 3.5 GM/DL (3.2-4.5); POTASSIUM 3.7 MMOL/L (3.6-5.0)
[2021-08-19 05:53] LABS: CALCIUM 9.8 MG/DL (8.5-10.1)
[2021-08-19 05:54] LABS: TOTAL PROTEIN 6.5 GM/DL (6.4-8.2)
[2021-08-19 05:56] LABS: BILIRUBIN,TOTAL 0.8 MG/DL (0.1-1.0)
[2021-08-19 05:58] LABS: CREATININE SERUM 2.5 MG/DL (0.60-1.30)
[2021-08-19 08:41] VITALS: BP 132/80
[2021-08-19] MEDS: SENNOSIDES 8.6 MG (SENOKOT) TAB PO SCH ×2 (08:47→20:59)
[2021-08-19] MEDS: DOCUSATE SODIUM 100 MG (COLACE) CAP PO SCH ×2 (08:47→20:59)
[2021-08-19] MEDS: PANTOPRAZOLE 40 MG (PROTONIX) VIAL IV SCH (08:47)
[2021-08-19] MEDS: LACTULOSE SYRUP 10GM/15ML (ENULOSE) 30ML UDC PO SCH ×4 (08:47→20:58)
[2021-08-19] MEDS: RIFAXIMIN 550 MG TABLET (XIFAXAN) PO SCH ×2 (10:26→20:59)
[2021-08-19] MEDS: NS IV 1000 ML 1,000 ML IV SCH (10:26)
--- NOTE | 2021-08-19 10:58 | Occupational Therapy Eval ---
OT Evaluation-General/PLF Medical Diagnosis Admission Date Aug 18, 2021 at 18:15 Medical Diagnosis: AMS Onset Date: Aug 18, 2021 Therapy Diagnosis Therapy Diagnosis: reduced adl status, cognition Height/Weight Height (Feet): 5 Height (Inches): 4.00 Weight (Pounds): 196 Weight (Ounces): 5.0 Precautions Precautions/Isolations: Fall Prevention, Standard Precautions Referral Referral Reason: Evaluation/Treatment Medical History Pertinent Medical History: Atrial Fib, Arthritis, CABG, CAD, DM, Dementia, GERD, Heart Failure, HTN, Hypothroidism, GA, Renal Insufficiency Current History Pt arrived to ER with increased confusion. Per chart, dtr reports patient had stopped walking/using walker. Pt currently confused. Appears to have expressive/receptive aphasia. Pt only verbalized 3 words throughout entire eval; "yes, no, and cold." Difficulty following very simple 1 step directions despite time and visual cues given. Unsure of home situation as current notes report that patient lives with spouse who is w/c bound. Last OT eval from Jun, 2020 reports that patient lives in a residential and receives assist with all adls. No family present to verify responses. Reviewed History: Yes ADL-Prior Level of Function SCALE: Activities may be completed with or without assistive devices. 2-Vaayhuguds-duzpkot completes the activity by him/herself with no assistance from a helper. 5-Set-up or Clean-up Assistance-helper sets up or cleans up; patient completes activity. Dwarf assists only prior to or following the activity. 4-Supervision or Touching Assistance-helper provides verbal cues and/or touching/steadying and/or contact guard assistance as patient completes activity. Assistance may be provided throughout the activity or intermittently. 3-Partial/Moderate Assistance-helper does LESS THAN HALF the effort. Dwarf lifts, holds or supports trunk or limbs, but provides less than half the effort. 2-Substantial/Maximal Assistance-helper does MORE THAN HALF the effort. Dwarf lifts or holds trunk or limbs and provides more than half the effort. 0-Bzvenrnaa-dwtibd does ALL the effort. Patient does none of the effort to complete the activity. Or, the assistance of 2 or more helpers is required for the patient to complete the activity. If activity was not attempted, code reason: 7-Patient Refused. 9-Not Applicable-not attempted and the patient did not perform the activity before the current illness, exacerbation or injury. 10-Not Attempted due to Environmental Limitations-(lack of equipment, weather restraints, etc.). 88-Not Attempted due to Medical Conditions or Safety Concerns. Self Care: Unknown Functional Cognition: Dependent (history of dementia) OT Current Status Subjective Pt verbalizes "no" when asked about pain. No visual signs of pain during session. Appearance Pt left supine in bed, all needs within reach, RN notified. Mental Status/Objective Patient Orientation: Confused Attachments: IV Current Upper Extremity ROM Does not follow cues. Resistance exhibited with attempt to perform AAROM/PROM. Unsure of true range. ADL-Treatment Eating (QC): 1 Toileting Hygiene (QC): 1 Pt laying supine in bed at OT arrival. Unable to follow simple cues to sit EOB. OT attempts to guide patient's leges towards edge of bed but patient often reaching for blanket and replacing over her body. She often repeats the word "cold." Per EDUCATION GENERAL MANAGER, pt is dependent for feeding and toileting hygiene. Education OT Patient Education: Purpose of tx/functional activities, Transfer techniques Teaching Recipient: Patient Teaching Methods: Demonstration, Discussion Response to Teaching: Unable to Return Demonstration, Unable to Comprehend, Reinforcement Needed OT Longterm Goals Longterm Goals Time Frame: Aug 30, 2021 Eating (QC): 3 Oral Hygiene (QC): 3 Toileting Hygiene (QC): 3 Shower/Bathe Self (QC): 3 Upper Body Dressing (QC): 3 Lower Body Dressing (QC): 3 Pt to perform supine>sit with mod a in prep for adls. 1=Demonstrate adherence to instructed precautions during ADL tasks. 2=Patient will verbalize/demonstrate understanding of assistive devices/modifications for ADL. 3=Patient will improve strength/tolerance for activity to enable patient to perform ADL's. OT Education/Plan Problem List/Assessment Assessment: Decreased Activ Tolerance, Decreased Safety Aware, Decreased UE Strength, Impaired Bed Mobility, Impaired Cognition, Impaired Funct Balance, Impaired Self-Care Skills, Restricted Funct UE ROM Discharge Recommendations Plan/Recommendations: Continue POC Comment Unsure of patients true prior level of function. Ongoing assessment needed. Treatment Plan/Plan of Care Treatment,Training & Education: Yes Patient would benefit from OT for education, treatment and training to promote independence in ADL's, mobility, safety and/or upper extremity function for ADL's. Plan of Care: ADL Retraining, Caregiver Training, Cognitive Retraining, Functional Mobility, Group Exercise/Act as Ind, UE Funct Exercise/Act, W/C Management Training Treatment Duration: Aug 30, 2021 Frequency: 3 times per week (3-5x/week) Estimated Hrs Per Day: .25 hour per day Rehab Potential: Poor Time/GCodes Start Time: 10:02 Stop Time: 10:10 Total Time Billed (hr/min): 8 Billed Treatment Time 1 visit Lizz Douglas OT Aug 19, 2021 10:58
--- NOTE | 2021-08-19 11:03 | History & Physical-Hospitalist ---
MIRTA CHEW 08/19/21 1103: History of Present Illness HPI/Chief Complaint CC: Altered Mental Status HPI: Patient is a 66 yo F who was brought to the ER on 08/18/2021 by daughter for altered mental status and confusion. Dr. Wilson is her PCP. Patient has been more somnolent and confused for the past 2-3 days and reported not able to walk as she could previously. Overall is worse compared to baseline. Did not have fever, cough, SOA, vomiting, or diarrhea upon presentation. History of hepatic encephalopathy. Current symptoms are the same as prior episodes. Pt also has a history of non-compliance with her healthcare. Ammonia was elevated at 110 on admission, and patient was started on IV fluids as well as Lactulose and Rifaximin. Patient was awake but had minimal responses when I visited. Responded with "Fine", "Yes", and "No". Date Seen 08/19/21 Attending Physician Sarah Morrell DO PCP Carla iWlson MD Referring Physician Date of Admission Aug 18, 2021 at 18:15 Home Medications & Allergies Home Medications Reviewed patient Home Medication Reconciliation performed by pharmacy medication reconciliations ekg/ecg technician and/or nursing. Patients Allergies have been reviewed. Allergies Allergies Coded Allergies Pofhzmr-ZJT-SfB Reductase Inhibitor (Verified Allergy, Intermediate, GI UPSET, N/V, 07/07/20) cefadroxil (Verified Allergy, Mild, 07/07/20) Sulfa (Sulfonamide Antibiotics) (Verified Allergy, Unknown, 07/07/20) oxycodone (Verified Allergy, Unknown, 07/07/20) "makes skin crawl" Past Gdowttg-Jcvupg-Yxeejk Hx Patient Social History Tobacco Use?: Yes Tobacco type used: Cigarettes Smoking Status: Former Smoker Substance use?: No Alcohol Use?: No Immunizations Up To Date Date of Influenza Vaccine: Mar 22, 2021 First/Initial COVID19 Vaccinat: UNKNOWN Second COVID19 Vaccination Garry: UNKNOWN Tetanus Booster (TDap): Unknown Hepatitis A: Yes Hepatitis B: Yes PED Vaccines UTD: Yes Date of Pneumonia Vaccine: May 16, 2019 Seasonal Allergies Seasonal Allergies: Yes Current Status Advance Directives: No Primary Language: Bulgarian Preferred Spoken Language: Bulgarian Implanted or Applied Medical D: Other Past Medical History Surgeries: Adenoidectomy, Cardiac, CABG, Coronary Stent, Open Heart Surgery, Orthopedic, Tonsillectomy, Tubal Ligation Pneumonia, Sleep Apnea Currently Using CPAP: No Currently Using BIPAP: No Coronary Artery Disease, High Cholesterol, Hypertension Dementia 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 History: Menopausal Sexually Transmitted Disease: No HIV/AIDS: No Bladder Infection, Renal Failure Liver Disease/Jaundice, Cirrhosis Degenerate Disk Disease, Arthritis, Chronic Back Pain, Fractures Diabetes, Insulin dep, Hypothyroidsim Loss of Vision: Denies Hearing Impairment: Denies Anxiety Psoriasis Blood Disorders: Yes (CHRONIC ANEMIA-GI LOSS/GAVE SYNDROME; MULT TRANSFUSIONS/MULT ANTIBODIES) Adverse Reaction/Blood Tranf: Yes (Antibody JKA) PMHx: Paroxysmal Atrial fibrillation Gastric antral vascular ectasia (GAVE) CAD NIDDM Chronic Microcytic anemia, transfusion dependent HTN HLD CHF CKD IN (Nstemi x3) s/p CABG Hypothyroidism Anxiety Disorder Family Medical History Arthritis G8 BROTHER Completed stroke 19 MOTHER FH: anemia 19 MOTHER FH: lupus G8 SISTER FH: throat cancer 19 FATHER Hypertension G8 SISTER Myocardial infarction 19 MOTHER Thyroid disease 19 MOTHER G8 SISTER Hypertension, Stroke, Other Conditions/Hx PSH: -LEFT ANKLE SURGERY -LEFT KNEE SURGERY -CARDIAC CATHS--STENT X 1 -4 VESSEL CABG AT [facility] 02/16/18 -THORACENTESIS -TONSILLECTOMY/ADENOIDECTOMY -BTL -PORT RIGHT CHEST -LEXISCAN STRESS TEST 03/08/20--NORMAL. EF 70% Review of Systems ROS-Unable to Obtain: Responds minimally saying she is "Fine" Physical Exam Physical Exam Vital Signs Vital Signs - First Documented 08/18/21 08/18/21 08/18/21 16:50 20:40 23:53 Temp 36.3 Pulse 98 Resp 16 B/P (MAP) 141/108 (119) Pulse Ox 96 O2 Delivery Room Air O2 Flow Rate 2.00 FiO2 21 Capillary Refill : Less Than 3 Seconds Height, Weight, BMI Height: 5'4.00" Weight: 196lbs. 5.0oz. [id number]; 35.42 BMI Method:Stated General Appearance: Chronically ill HEENT: PERRL/EOMI Respiratory: Chest Non Tender, Lungs Clear, Normal Breath Sounds, No Accessory Muscle Use, No Respiratory Distress Cardiovascular: Regular Rate, Rhythm, No Edema Gastrointestinal: Normal Bowel Sounds Neurologic/Psychiatric: Other (Patient does not seem fully alert and aware of surroundings and situation and also has a seemingly depressed affect.) Results Results/Procedures Labs Laboratory Tests 08/18/21 17:05 08/19/21 05:30 Patient resulted labs reviewed. Assessment/Plan Admission Diagnosis Hepatic Encephalopathy Hyperammonemia- Ammonia 110 on admission Medication Non-compliance GERD Hypothyroidism Assessment and Plan Assessment Hepatic Encephalopathy Hyperammonemia- Ammonia 110 on admission Medication Non-compliance GERD Hypothyroidism Plan 08/19 Continue Lactulose and Rifaximin Continue IV fluids and supportive care Monitor Ammonia Clinical Quality Measures DVT/VTE Risk/Contraindication: Contraindications-Pharm: Other *list below* Other: chronic GIB SARAH MORRELL DO 08/20/21 0536: History of Present Illness HPI/Chief Complaint Chief Complaint: Altered mental status due to Hepatic Encephalopathy HPI: This is a 66yoWF known to me from multiple hospital stays due to Hepatic Encephalopathy from fatty liver and cirrhosis. She has a history of medication non-compliance she really needs to be in a NH but she came from home. Right now, she is answering everything with the word "fine". We will work on getting her medication Lactulose QID and Rifaximin and will hopefully get her cleared and continue gentle IV fluids for acute kidney injury. Source: patient Exam Limitations: clinical condition Time Seen by a Provider: 10:00 Past Tvxuxju-Jpvqdl-Knqmxy Hx Patient Social History Marrital Status: Employed/Student: unemployed Smoking Status: Never a Smoker Past Medical History Sleep Apnea, COPD Coronary Artery Disease, High Cholesterol, Hypertension Bladder Infection, Renal Failure Cirrhosis Family Medical History Arthritis G8 BROTHER Completed stroke 19 MOTHER FH: anemia 19 MOTHER FH: lupus G8 SISTER FH: throat cancer 19 FATHER Hypertension G8 SISTER Myocardial infarction 19 MOTHER Thyroid disease 19 MOTHER G8 SISTER Review of Systems Constitutional: see HPI Physical Exam Physical Exam General Appearance: No Apparent Distress, Chronically ill, Obese Eyes: Right Eye Normal Inspection, Right Eye PERRL HEENT: PERRL/EOMI, Normal ENT Inspection, Pharynx Normal, Moist Mucous Membranes Neck: Full Range of Motion, Normal Inspection, Non Tender Respiratory: Chest Non Tender, Lungs Clear, Normal Breath Sounds, No Accessory Muscle Use, No Respiratory Distress Cardiovascular: Regular Rate, Rhythm, No Edema, No Gallop, No JVD, No Murmur, Normal Peripheral Pulses Gastrointestinal: Normal Bowel Sounds, No Organomegaly, No Pulsatile Mass, Non Tender, Soft Back: Normal Inspection, No CVA Tenderness, No Vertebral Tenderness Extremity: Normal Capillary Refill, Normal Inspection, Normal Range of Motion, Non Tender, No Calf Tenderness, No Pedal Edema Neurologic/Psychiatric: Alert, Oriented x3, No Motor/Sensory Deficits, Normal Mood/Affect, Other (Patient does not seem fully alert and aware of surroundings and situation and also has a seemingly depressed affect.) Skin: Normal Color, Warm/Dry Lymphatic: No Adenopathy Assessment/Plan Admission Diagnosis Assessment: Hepatic encephalopathy recurrent in nature Noncompliance of medication Fatty liver Diabetes Acute kidney injury Plan: Lactulose Rifaximin IV fluids Insulin Admission Status: Inpatient Order (span 2 midnights) Reason for Inpatient Admission: Hepatic encephalopathy Supervisory-Addendum Brief Verification & Attestation Participated in pt care: history, MDM, physical Personally performed: exam, history, MDM, supervision of care Care discussed with: Medical Student Procedures: n/a Results interpretation: Verified all documentation Verification and Attestation of Medical Student E/M Service A medical student performed and documented this service in my presence. I reviewed and verified all information documented by the medical student and made modifications to such information, when appropriate. I personally performed the physical exam and medical decision making. Sarah Morrell Aug 20, 2021,05:36 MIRTA CHEW Aug 19, 2021 11:03 SARAH MORRELL DO Aug 20, 2021 05:36
--- NOTE | 2021-08-19 11:26 | Physical Therapy Evaluation ---
PT Evaluation-General Medical Diagnosis Admission Date Aug 18, 2021 at 18:15 Medical Diagnosis: AMS/hepatic encephalopathy Onset Date: Aug 18, 2021 Therapy Diagnosis Therapy Diagnosis: generalized weakness/debility Height/Weight Height (Feet): 5 Height (Inches): 4.00 Weight (Pounds): 196 Weight (Ounces): 5.0 Precautions Precautions/Isolations: Fall Prevention, Standard Precautions Referral Physician: Porsche Reason for Referral: Evaluation/Treatment Medical History Pertinent Medical History: Atrial Fib, Arthritis, CABG, CAD, DM, Dementia, GERD, Heart Failure, HTN, Hypothroidism, NH, Renal Insufficiency Current History ER via family due to AMS/decreased mobility Reviewed History: Yes Social History Home: Single Level Current Living Status: Significant Other Entry Into Home: Ramp Prior Prior Level of Function SCALE: Activities may be completed with or without assistive devices. 9-Mmmcudfwgg-edvmrhc completes the activity by him/herself with no assistance from a helper. 5-Set-up or Clean-up Assistance-helper sets up or cleans up; patient completes activity. [place] assists only prior to or following the activity. 4-Supervision or Touching Assistance-helper provides verbal cues and/or touching/steadying and/or contact guard assistance as patient completes acti vity. Assistance may be provided throughout the activity or intermittently. 3-Partial/Moderate Assistance-helper does LESS THAN HALF the effort. [place] lifts, holds or supports trunk or limbs, but provides less than half the effort. 2-Substantial/Maximal Assistance-helper does MORE THAN HALF the effort. [place] lifts or holds trunk or limbs and provides more than half the effort. 2-Onvtywztg-gphqeg does ALL the effort. Patient does none of the effort to complete the activity. Or, the assistance of 2 or more helpers is required for the patient to complete the activity. If activity was not attempted, code reason: 7-Patient Refused. 9-Not Applicable-not attempted and the patient did not perform the activity before the current illness, exacerbation or injury. 10-Not Attempted due to Environmental Limitations-(lack of equipment, weather restraints, etc.). 88-Not Attempted due to Medical Conditions or Safety Concerns. Bed Mobility: 4 Transfers (B,C,W/C): 4 Gait: 4 Stairs: 9 Wheelchair Mobility: 2 Indoor Mobility (Ambulation): Needed Some Help Stairs: Not Applicalbe Prior Devices Use: Manual wheelchair, Walker patient ambulates short distances only PT Evaluation-Current Subjective Patient agrees to PT. Patient is very confused. Objective Patient Orientation: Confused Attachments: Munoz Catheter, IV ROM/Strength ROM Lower Extremities bilateral LE WFL Strength Lower Extremities 3+/5 grossly bilateral LE (unable to test due to confusion) Integumentary/Posture Bladder Incontinence: Munoz Cath Posture WFL Neuromuscular (Tone, Coordination, Reflexes) grossly intact Sensory Vision: Functional Hearing: Functional Transfers Lying to Sitting/Side of Bed(Q: 3 Sit to Stand (QC): 3 Chair/Sgf-gz-Oxnhj Xfer(QC): 3 Gait Does the Patient Walk?: Yes Mode of Locomotion: Both Anticipated Mode of Locomotion: Both Walk 10 feet (QC): 3 Walk 50 ft with 2 Turns(QC): 7 Distance: 15' Gait Assistive Device: FWW Comments/Gait Description patient refused to ambulate farther distance and sat in recliner Balance Sitting Static: Normal Sitting Dynamic: Normal Standing Static: Fair Standing Dynamic: Fair Treatment Chair alarm activated Assessment/Needs 66 y.o. female, will benefit from skilled PT to address functional strength and mobility to improve current LOF. Patient is very confused and self limits. Rehab Potential: Fair PT Fci Goals Fci Goals PT Fci Goals Time Frame: Aug 31, 2021 Roll Left & Right (QC): 4 Sit to Lying (QC): 4 Lying-Sitting on Side/Bed(QC): 4 Sit to Stand (QC): 4 Chair/Wwu-qt-Dmsiz Xfer(QC): 4 Toilet Transfer (QC): 4 Walk 10 feet (QC): 4 Walk 50ft with 2 Turns (QC): 4 PT Plan Problem List Problem List: Activity Tolerance, Functional Strength, Safety, Balance, Gait, Transfer, Bed Mobility Treatment/Plan Treatment Plan: Continue Plan of Care Treatment Plan: Bed Mobility, Education, Functional Activity Tamy, Functional Strength, Gait, Safety, Therapeutic Exercise, Transfers Treatment Duration: Aug 31, 2021 Frequency: 6 times per week Estimated Hrs Per Day: .25 hour per day Time/GCodes Time In: 1052 Time Out: 1103 Total Billed Treatment Time: 11 Total Billed Treatment 1 visit EVMod 11 min YOLETTE HILARIO PT Aug 19, 2021 11:26
[2021-08-19 11:46] VITALS: BP 109/76
[2021-08-19] MEDS ORDERED: OMEP20CA18 PO (14:52)
[2021-08-19] MEDS ORDERED: LEVO125C4 PO (14:53)
[2021-08-19] MEDS ORDERED: SPIR25TA5 PO (14:54)
[2021-08-19] MEDS ORDERED: NITR100C PO (14:54)
[2021-08-19] MEDS ORDERED: CETI10TA17 PO (14:55)
[2021-08-19] MEDS ORDERED: BUME1TAB8 PO (14:55)
[2021-08-19] MEDS ORDERED: INSN1U SQ (14:57)
[2021-08-19] MEDS ORDERED: NITR-65 PO (15:14)
[2021-08-19 16:48] VITALS: BP 125/84
[2021-08-19 20:10] VITALS: BP 130/63
[2021-08-19 23:14] VITALS: BP 114/69
[2021-08-20] MEDS: NS IV 1000 ML 1,000 ML IV SCH (00:42)
[2021-08-20 03:27] VITALS: BP 124/76
[2021-08-20 05:31] LABS: BASOPHILS # (AUTO) 0.1 10^3/uL (0.0-0.1); BASOPHILS % (AUTO) 1 % (0-10); EOSINOPHILS # (AUTO) 0.3 10^3/uL (0.0-0.3); EOSINOPHILS % (AUTO) 6 % (0-10); HEMATOCRIT 32 % (35-52); HEMOGLOBIN 10.9 g/dL (11.5-16.0); LYMPHOCYTES # (AUTO) 1.3 10^3/uL (1.0-4.0); LYMPHOCYTES % (AUTO) 26 % (12-44); MEAN CORPUSCULAR HEMOGLOBIN 32 pg (25-34); MEAN CORPUSCULAR HGB CONC 34 g/dL (32-36); MEAN CORPUSCULAR VOLUME 94 fL (80-99); MEAN PLATELET VOLUME 10.9 fL (9.0-12.2); MONOCYTES # (AUTO) 0.6 10^3/uL (0.0-1.0); MONOCYTES % (AUTO) 12 % (0-12); NEUTROPHILS # (AUTO) 2.8 10^3/uL (1.8-7.8); NEUTROPHILS % (AUTO) 56 % (42-75); PLATELET COUNT 138 10^3/uL (130-400); WHITE BLOOD COUNT 5.1 10^3/uL (4.3-11.0)
[2021-08-20 05:38] LABS: ALBUMIN 3.7 GM/DL (3.2-4.5); POTASSIUM 3.5 MMOL/L (3.6-5.0)
[2021-08-20 05:39] LABS: CALCIUM 9.9 MG/DL (8.5-10.1)
[2021-08-20 05:40] LABS: TOTAL PROTEIN 6.7 GM/DL (6.4-8.2)
[2021-08-20 05:44] LABS: CREATININE SERUM 2.1 MG/DL (0.60-1.30)
[2021-08-20] MEDS: inSUlin ASPART (NovoLOG) 1 UNIT/0.01 ML (CHARGE PER UNIT) SC SCH ×2 (06:03→11:51)
[2021-08-20 08:08] VITALS: BP 134/79
[2021-08-20] MEDS: DOCUSATE SODIUM 100 MG (COLACE) CAP PO SCH (09:46)
[2021-08-20] MEDS: LACTULOSE SYRUP 10GM/15ML (ENULOSE) 30ML UDC PO SCH (09:46)
[2021-08-20] MEDS: RIFAXIMIN 550 MG TABLET (XIFAXAN) PO SCH (09:46)
[2021-08-20] MEDS: PANTOPRAZOLE 40 MG (PROTONIX) VIAL IV SCH (09:46)
[2021-08-20] MEDS: SENNOSIDES 8.6 MG (SENOKOT) TAB PO SCH (09:46)
[2021-08-20] MEDS ORDERED: DICL100G13 TP (10:09)
[2021-08-20] MEDS ORDERED: NITR0.4T39 SL (10:09)
--- NOTE | 2021-08-20 10:18 | Discharge Summary ---
Discharge Summary Hospital Course Was the Problem List Reviewed?: Yes Problems/Dx: (1) Hepatic encephalopathy Status: Acute (2) Renal insufficiency Status: Acute Hospital Course Date of Admission: Aug 18, 2021 at 18:15 Admission Diagnosis : Family Physician/Provider: Carla Wilson MD Date of Discharge: 08/20/21 Discharge Diagnosis: Hepatic encephalopathy, acute on chronic kidney disease, dehydration, end-stage liver disease Hospital Course: Short hospital course after she was admitted for hepatic encephalopathy due to medication noncompliance. Gentle IV fluids given due to acute on chronic kidney disease. Lactulose along with rifaximin started which lowered ammonia and increased cognition she was deemed stable for discharge. Patient will continue to have readmission risk due to noncompliance from end-stage liver disease issues. Labs and Pending Lab Test: Laboratory Tests 08/19/21 11:18: Glucometer 193H 08/19/21 16:44: Glucometer 188H 08/19/21 20:13: Glucometer 207H 08/20/21 05:20: White Blood Count 5.1, Red Blood Count 3.42L, Hemoglobin 10.9L, Hematocrit 32L, Mean Corpuscular Volume 94, Mean Corpuscular Hemoglobin 32, Mean Corpuscular Hemoglobin Concent 34, Red Cell Distribution Width 12.9, Platelet Count 138, Mean Platelet Volume 10.9, Immature Granulocyte % (Auto) 0, Neutrophils (%) (Auto) 56, Lymphocytes (%) (Auto) 26, Monocytes (%) (Auto) 12, Eosinophils (%) (Auto) 6, Basophils (%) (Auto) 1, Neutrophils # (Auto) 2.8, Lymphocytes # (Auto) 1.3, Monocytes # (Auto) 0.6, Eosinophils # (Auto) 0.3, Basophils # (Auto) 0.1, Immature Granulocyte # (Auto) 0.0, Sodium Level 140, Potassium Level 3.5L, Chloride Level 113H, Carbon Dioxide Level 16L, Anion Gap 11, Blood Urea Nitrogen 31H, Creatinine 2.10H, Estimat Glomerular Filtration Rate 26, BUN/Creatinine Ratio 15, Glucose Level 133H, Calcium Level 9.9, Corrected Calcium 10.1, Total Bilirubin 1.0, Aspartate Amino Transf (AST/SGOT) 18, Alanine Aminotransferase (ALT/SGPT) 13, Alkaline Phosphatase 70, Ammonia 45H, Total Protein 6.7, Albumin 3.7 Home Meds Active Reported Nitroglycerin 0.4 Mg Tab.subl 0.4 Mg SL UD PRN Diclofenac Sodium 100 Gm Gel..gram. 100 Gm TP DAILY PRN Macrobid 100 mg Capsule (Nitrofurantoin Monohyd/M-Cryst) 100 Mg Capsule 1 Tab PO HS Novolin N (Insulin NPH Human Isophane) 100 Unit/1 Ml Vial 15 Unit SQ BID LAST FILLED 05-14-2021 #1 VIAL 30 DAY SUPPLY Cetirizine HCl 10 Mg Tablet 10 Mg PO DAILY Bumetanide 1 Mg Tablet 1 Mg PO DAILY Spironolactone 25 Mg Tablet 25 Mg PO DAILY Levothyroxine (Levothyroxine Sodium) 125 Mcg Capsule 125 Mcg PO DAILY Omeprazole 20 Mg Capsule.dr 20 Mg PO BID Levemir (Insulin Determir) 1,000 Units/10 Ml Soln 10 Units SC DAILY Xifaxan (Rifaximin) 200 Mg Tablet 600 Mg PO BID TAKES 3 (200MG) TABS Ondansetron HCl 4 Mg Tablet 4 Mg PO Q8H PRN Lactulose 20 Gm/30 Ml Solution 30 Ml PO BID PRN Vitamin D2 (Ergocalciferol (Vitamin D2)) 1,250 Mcg Capsule 1,250 Units PO THURSDAY Folic Acid 1 Mg Tablet 1 Mg PO DAILY Ondansetron HCl 4 Mg Tablet 4 Mg PO DAILY Topiramate 50 Mg Tablet 50 Mg PO BID Magox 400 (Magnesium Oxide) 400 Mg Tablet 400 Mg PO BID Assessment/Pt Instructions PCP in 1 week Discharge Planning: <30 minutes discharge planning Discharge Instructions Discharge Diet: ADA Diet Activity as Tolerated: Yes Discharge Physical Examination Vital Signs Vital Signs Date Time Temp Pulse Resp B/P (MAP) Pulse Ox O2 Delivery O2 Flow Rate FiO2 08/20/21 09:55 Room Air 08/20/21 08:08 36.6 95 20 134/79 (97) 94 08/19/21 04:05 2.00 08/18/21 20:40 21 General Appearance: No Apparent Distress, WD/WN, Chronically ill Respiratory: Lungs Clear Cardiovascular: Regular Rate, Rhythm Allergies: Coded Allergies: Oaihnrl-VWH-MiC Reductase Inhibitor (Verified Allergy, Intermediate, GI UPSET, N/V, 07/07/20) cefadroxil (Verified Allergy, Mild, 07/07/20) Sulfa (Sulfonamide Antibiotics) (Verified Allergy, Unknown, 07/07/20) oxycodone (Verified Allergy, Unknown, 07/07/20) "makes skin crawl" Discharge Summary Date of Admission Aug 18, 2021 at 18:15 Date of Discharge Discharge Date: Aug 20, 2021 Admission Diagnosis Assessment: Hepatic encephalopathy recurrent in nature Noncompliance of medication Fatty liver Diabetes Acute kidney injury Plan: Lactulose Rifaximin IV fluids Insulin Clinical Quality Measures DVT/VTE Risk/Contraindication: Contraindications-Pharm: Other *list below* Other: chronic GIB MICHELLE GARCIA DO Aug 20, 2021 10:18
--- NOTE | 2021-08-20 10:29 | Physical Therapy Progress Note ---
Therapy Progress Note Patient received sedation medication at 5 a.m. per RN due to agitation. Patient is currently sedated and not safe for OOB activity and will not remain awake for exercises. RN notified that patient will be on hold on this date due to this. YOLETTE HILARIO PT Aug 20, 2021 10:29
--- NOTE | 2021-08-20 11:09 | Progress Note ---
MIRTA CHEW 08/20/21 1109: Progress Note Hospital Course: Patient is a 66 yo F who was brought to the ER on 08/18/2021 by daughter for altered mental status and confusion. Dr. Wilson is her PCP. Patient has had multiple hospital stays due to Hepatic Encephalopathy from fatty liver and cirrhosis with presentation similar to this current episode. Also has a history of non-compliance with her healthcare. Patient was somnolent and confused for the prior 2-3 days and not able to walk as previously. At the beginning of the course, patient responded with "Fine", "Yes", and "No". Ammonia was initially elevated at 110 on admission, and patient was started on IV fluids, Lactulose, and Rifaximin. Pt also had acute kidney injury with elevated BUN 40 and Cr 2.78 upon admission. Patient's labs continued to improve following her through the stay. Visiting the patient on morning of 08/20, she seemed much more alert and aware. She responded in a slightly larger sentence with a less delayed response saying "I'm okay now". On 08/20, Ammonia levels decreased and kidney function improved, Ammonia 45, BUN 31, and Cr 2.1 Overall, patient improved throughout her course of stay regaining some mental status and improving kidney function. SARAH GARCIA DO 08/21/21 0617: Supervisory-Addendum Brief Verification & Attestation Participated in pt care: history, MDM, physical Personally performed: exam, history, MDM, supervision of care Care discussed with: Medical Student Procedures: n/a Results interpretation: Verified all documentation Verification and Attestation of Medical Student E/M Service A medical student performed and documented this service in my presence. I reviewed and verified all information documented by the medical student and made modifications to such information, when appropriate. I personally performed the physical exam and medical decision making. Sarah Garcia Aug 21, 2021,06:17 MIRTA CHEW Aug 20, 2021 11:09 SARAH GARCIA DO Aug 21, 2021 06:17
--- NOTE | 2021-08-20 11:28 | Occ Therapy Progress Note ---
Therapy Progress Note Pt more alert this date and able to respond with more than a yes/no response. She refuses all OOB and bed level activities. She reports she will be discharging home and is not going to do anything until she gets to leave. Pt has no desire to get ready for discharge such as donning clothing or packing belongings. Lizz Handy OT Aug 20, 2021 11:28
[2021-08-20 12:07] VITALS: BP 123/71
== END 2021-08-20 13:20 | disposition home or self-care (01) | DRG 442 ==
LOC: EDUNIT# 16:32 → ER 16:36 → 4TH 18:15
PROVIDERS: ADMIT Internal Medicine; ATTEND Internal Medicine
PROC: 8E0ZXY6 Isolation (ICD-10-PCS; principal; 2021-08-18)
DX: K72.90 Hepatic failure, unspecified without coma (principal); N17.9 Acute kidney failure, unspecified; E72.20 Disorder of urea cycle metabolism, unspecified; K74.60 Unspecified cirrhosis of liver; I48.0 Paroxysmal atrial fibrillation; I13.10 Hypertensive heart and chronic kidney disease without heart failure, with stage 1 through stage 4 chronic kidney disease, or unspecified chronic kidney disease; E11.22 Type 2 diabetes mellitus with diabetic chronic kidney disease; E11.65 Type 2 diabetes mellitus with hyperglycemia; Z20.822 Contact with and (suspected) exposure to COVID-19; N18.9 Chronic kidney disease, unspecified; Z79.4 Long term (current) use of insulin; F03.90 Unspecified dementia, unspecified severity, without behavioral disturbance, psychotic disturbance, mood disturbance, and anxiety; E03.9 Hypothyroidism, unspecified; K31.819 Angiodysplasia of stomach and duodenum without bleeding; Z91.19 Patient's noncompliance with other medical treatment and regimen; I25.10 Atherosclerotic heart disease of native coronary artery without angina pectoris; M19.91 Primary osteoarthritis, unspecified site; F41.9 Anxiety disorder, unspecified; Z87.891 Personal history of nicotine dependence; Z95.5 Presence of coronary angioplasty implant and graft; Z95.1 Presence of aortocoronary bypass graft; Z88.5 Allergy status to narcotic agent; Z88.2 Allergy status to sulfonamides; Z88.8 Allergy status to other drugs, medicaments and biological substances; I25.2 Old myocardial infarction; Z82.49 Family history of ischemic heart disease and other diseases of the circulatory system; Z82.61 Family history of arthritis; Z83.49 Family history of other endocrine, nutritional and metabolic diseases
CPT/HCPCS: 36415; 51701; 71045; 80053; 80306; 80320; 81000; 82140; 82947; 83735; 85025; 85610; 87636

== ENCOUNTER → 2022-08-12 | Outpatient (CLI) | payer MEDICARE ==
[~2022-08-12] MED LIST changes: +DICL100G13 TP; +NITR100C PO
[2022-08-13 10:14] LABS: ALANINE AMINOTRANSFERASE < 6 U/L (0-55); ALBUMIN 3.3 GM/DL (3.2-4.5); ALKALINE PHOSPHATASE 75 U/L (40-136); BILIRUBIN,TOTAL 0.5 MG/DL (0.1-1.0); BUN/CREATININE RATIO 11; CALCIUM 9.3 MG/DL (8.5-10.1); CARBON DIOXIDE 26 MMOL/L (21-32); CHLORIDE 98 MMOL/L (98-107); CREATININE SERUM 2.46 MG/DL (0.60-1.30); GFR ESTIMATED 21; GLUCOSE 346 MG/DL (70-105); POTASSIUM 4.2 MMOL/L (3.6-5.0); SODIUM 135 MMOL/L (135-145); TOTAL PROTEIN 6.8 GM/DL (6.4-8.2)
== END ==
LOC: HOSHH 13:45
PROVIDERS: ATTEND Nurse Practitioner
DX: Z01.89 Encounter for other specified special examinations (principal)
CPT/HCPCS: 80053; 82140

== ENCOUNTER 2022-11-27 08:10 | Outpatient (RCR) | payer MEDICARE ==
[2022-11-26 08:05] VITALS: BP 120/52
[2022-11-26 10:36] VITALS: BP_SYST 120; BP_SYST 135; BP_DIAS 52; BP_DIAS 58
[2022-11-26 10:50] VITALS: BP 122/52
[2022-11-26 13:00] VITALS: BP 135/58
[~2022-11-27] VITALS: Ht 162.6 cm; Wt 85.5 kg
[~2022-11-27 08:10] MED LIST changes: +ATIVAN; +DILT180C71 PO; -DILT180C82 PO; +ENAL-66 PO; -ENLP5T PO; +MECLIZINE HCL; +NS IV 500 ML 500 ML ONE; +POTA-330 PO; -POTA-51 PO; +TOPI-241 PO; -TOPI50TA13 PO
[2022-11-27] MEDS ORDERED: NS IV 500 ML 500 ML IV SCH (08:30)
[2022-11-27 08:45] VITALS: BP 132/52
[2022-11-27 09:25] LABS: HEMOGLOBIN 5.8 g/dL (11.5-16.0)
[2022-11-27 09:29] VITALS: BP 132/52
[2022-11-27 09:44] VITALS: BP 134/52
[2022-11-27 11:26] VITALS: BP 132/56
== END 2022-11-27 12:00 | disposition home or self-care (01) ==
LOC: SDC 08:10
PROVIDERS: ATTEND Family Medicine
DX: D64.9 Anemia, unspecified (principal)
CPT/HCPCS: 36430; 86850; 86900; 86901; 86902; 86922; P9016; 36415; 85014; 85018; 96523

== ENCOUNTER → 2022-12-24 | Outpatient (CLI) | payer MEDICARE ==
[~2022-12-24] VITALS: Wt 85.5 kg
[~2022-12-24] MED LIST changes: +NS IV 500 ML 500 ML IV SCH; -NS IV 500 ML 500 ML ONE
[2022-12-24 11:50] VITALS: BP 130/51
[2022-12-24 13:13] VITALS: BP 136/56
[2022-12-24 13:28] VITALS: BP 146/61
[2022-12-24 15:23] VITALS: BP 144/54
== END ==
LOC: SDC 11:08
PROVIDERS: ATTEND Nurse Practitioner Family
DX: D64.9 Anemia, unspecified (principal); E66.9 Obesity, unspecified; S20.363A Insect bite (nonvenomous) of bilateral front wall of thorax, initial encounter; Z68.33 Body mass index [BMI] 33.0-33.9, adult
CPT/HCPCS: 36430; 86850; 86900; 86901; 86902; 86922; P9016

== ENCOUNTER 2023-01-29 13:37 | Outpatient (CLI) | payer MEDICARE ==
[~2023-01-29] VITALS: Wt 85.5 kg
[~2023-01-29 13:37] MED LIST changes: -NS IV 500 ML 500 ML IV SCH
[2023-01-29 15:08] VITALS: BP 123/56
== END 2023-01-29 15:00 ==
LOC: SDC 13:37
PROVIDERS: ATTEND Surgery
DX: Z45.2 Encounter for adjustment and management of vascular access device (principal); Z92.89 Personal history of other medical treatment
CPT/HCPCS: 96523